=== PATIENT | female | born 1940 | race Caucasian/White ===

== ENCOUNTER → 2016-11-08 | Day surgery (SDC) | payer OTHER ==
[2016-10-30 10:50] VITALS: BMI 36.0
[~2016-11-08] VITALS: Ht 165.1 cm; Wt 100.8 kg
[~2016-11-08] MED LIST: ALBINS/ INH; ALBU1NEB10 INH; ALBUT/IPRATROP 3MG/0.5MG NEB 3 ML VIAL INH ONE; ASCO1CAP3 PO; ATOR-24 PO; ATROPINE SULFATE 0.1 MG/ML 5ML SYR IV PRN; ATV/1 PO; BIMA0.01 OPB; BRIN1SUS OPB; CHOL100027 PO; CLON0.1T12 PO; CPR500 PO; DICY20TA35 PO; DILT1CAP15 PO; EpHEDrine SULFATE INJ 50 MG/ML AMP IV PRN; FENTANYL CITRATE INJ 50 MCG/1 ML 2 ML VIAL ONE; FERR1TAB23 PO; FURO40TA3 PO; GLIM4TAB2 PO; HYDR-5688 PO; HYT/2 PO; IPRA1AER2 INH; LACTATED RINGER'S 1000ML 1,000 ML IV SCH; LARYING-O-JET KIT (LTA) EXT ONE; LEVA45AE INH; LEVA45AE PO; LIDOCAINE HCL 2% 2 ML VIAL (20MG/ML) ONE; METF-383 PO; MISCCAP80 PO; MTR500 PO; MULT-506 PO; NURSING VERBAL MED ORDER ONE; OMEP20CA9 PO; ONDA8TAB13 SL; ONDANSETRON INJ 2 MG/ML 2 ML VIAL IV PRN; ONDANSETRON INJ 2 MG/ML 2 ML VIAL ONE; OXGN; POLY1POW2 PO; POTA20TA16 PO; PROPOFOL IV EMULSION 10 MG/ML 20 ML VIAL IV ONE; RANI150T3 PO; ROCURONIUM BROMIDE 10 MG/ML 5 ML VIAL ONE; SENN-91 PO; SPRIN/30 INH; SUCCINYLCHOLINE CHLORIDE 20 MG/ML 10 ML VIAL IV ONE; TIOTCAP INH; TRAM-10 PO; TRAZ50TA35 PO; XOPENEX; ZAFI1TAB10 PO; ZFRODT/8 PO
[2016-11-08 05:55] VITALS: BP 159/80; PULSE 86; TEMP 36.9; O2SAT 93; Ht 165.1 cm; Wt 100.8 kg
[2016-11-08 07:15] VITALS: PULSE 66; O2SAT 93
--- NOTE | 2016-11-08 07:55 | Endo History and Physical ---
History & Physical Date of Service: Nov 08, 2016. Chief Complaint: [place] Referring Physician: History of Present Illness 75 year old female with a history of nausea presenting for a routine EGD / EUS for follow-up of a submucosal gastric mass. No dysphagia this am. Past Medical History Diabetes, Osteoporosis, Arthritis, Asthma, Anxiety, Reflux, Sleep Apnea, Hypertension, COPD Past Surgical History Hx Cardiac Surgery: No Hx Internal Defibrillator: No Hx Pacemaker: No Hx Abdominal Surgery: Yes (LAP DAISY , HERNIA REPAIRED, TUBAL LIGATION) Hx Post-Op Nausea and Vomiting: No Hx Cancer Surgery: No Hx Thoracic Surgery: No Hx Orthopedic: No Hx Urinary Tract Surgery: No 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 Smoking Status: Never Smoker Hx Substance Use: Yes Hx Alcohol Use: No Allergies Coded Allergies: Iodinated Contrast Media (Verified Allergy, Intermediate, HIVES-GI SYMPTOMS, 11/08/16) [place] (Verified Allergy, Intermediate, HIVES, 11/08/16) Bupropion (Verified Adverse Reaction, Mild, GI SYMPTOMS, 11/08/16) Enalapril (Verified Adverse Reaction, Mild, GI SYMPTOMS, 11/08/16) Escitalopram (Verified Adverse Reaction, Mild, GI SYMPTOMS, 11/08/16) Metoprolol (Verified Adverse Reaction, Mild, LOWERS PULSE RATE, 11/08/16) Lisinopril (Verified Adverse Reaction, Unknown, FAST HEART BEAT, 11/08/16) Valsartan (Verified Adverse Reaction, Unknown, FAST HEART BEAT, 11/08/16) Verapamil (Verified Adverse Reaction, Unknown, GI UPSET, 11/08/16) Current Medications Reported Home Medications Medications Dose Route/Sig Max Daily Dose Days Date Category Dose Instructions Multivitamin (Multivitamins) Tab 1 Tab PO QAM 10/30/16 Reported Combivent Respimat (Ipratropium-Albuterol) 1 Aer Aer 1 Puffs INH QID 12/31/15 Reported Bentyl (Dicyclomine Hcl) 20 Mg Tab 20 Mg PO QAM 12/31/15 Reported Diltiazem Hcl Er (Diltiazem Hcl Coated Beads) 360 Mg Cap 360 Mg PO QAM 12/31/15 Reported Catapres (Clonidine Hcl) 0.1 Mg Tab 1 Tab PO DIRECTED PRN 90 07/24/15 Reported TAKE IF B/P > 170/90 Vitamin D 1000 Unit (Cholecalciferol) 1,000 Unit Cap 1,000 Inter.unit PO QAM 07/24/15 Reported Spiriva Handihaler (Tiotropium [place]) 18 Mcg/ Aerp 1 Cap INH DAILY 07/24/15 Reported Lasix (Furosemide) 40 Mg Tab 1 Tab PO DAILY 07/24/15 Reported Do not take on a regular basis. May take as needed for fluid retention (swelling of ankles or feet). Albuterol Sulfate 0.083% For Inh (Albuterol Sulf) 3 Ml Nebu 3 Ml INH BID PRN 07/24/15 Reported Polyethylene Glycol 3350 (Polyethylene Glycol 3350 (Bulk) 1 Pow Pow 17 Gm PO DAILY 30 07/24/15 Reported Oxygen Gas 4 Liter NA HS 07/24/15 Reported Azopt Oph (Brinzolamide) 1 % Tammie 1 Drops OPB BID 90 07/24/15 Reported Lumigan (Bimatoprost) 0.01 % Talia 1 Drops OPB HS 90 07/24/15 Reported Vitamin C (Ascorbic Acid) 500 Mg Cap 1 Cap PO QAM 07/24/15 Reported Iron (Ferrous Sulfate) 325 Mg Tab 1 Tab PO QAM 07/24/15 Reported Probiotic (Probiotic Product) 1 Cap Cap 1 Cap PO QAM 07/24/15 Reported Hytrin (Terazosin Hcl) 2 Mg Cap 1 Cap PO DAILY 07/24/15 Reported ONLY IF BP IS HIGH PER DOCTOR SCHEDULE Lipitor (Atorvastatin Calcium) 40 Mg Tab 40 Mg PO QPM 07/24/15 Reported Glucophage (Metformin Hcl) 850 Mg Tab 850 Mg PO BIDM 07/24/15 Reported Prilosec (Omeprazole) 20 Mg Cap 1 Cap PO BID 30 07/24/15 Reported Accolate (Zafirlukast) 20 Mg Tab 20 Mg PO QAM 07/24/15 Reported Ativan (Lorazepam) 1 Mg Tab 1 Mg PO BID PRN 07/24/15 Reported Klor-Con (Potassium Chloride) 20 Meq Tabcr 20 Meq PO DAILY 07/24/15 Reported Do not take on a regular basis. Take on days that you take furosemide (Lasix) for fluid retention. [place] 5MG/325MG (Acetaminophen/Hydrocodone Bitart) Tab 1 Tab PO Q6H PRN 30 07/24/15 Reported PRN PAIN Ultram (Tramadol HCl) 50 Mg Tab 50 Mg PO Q6H PRN 07/24/15 Reported Zantac (Ranitidine HCl) 150 Mg Tab 1 Tab PO BID 90 07/24/15 Reported Vital Signs Weight (Kilograms): 100.8 Height (Feet): 5 Height (Inches): 5 Date Time Temp Pulse Resp B/P Pulse Ox O2 Delivery O2 Flow Rate FiO2 11/08/16 07:15 66 18 93 Room Air 11/08/16 05:55 36.9 86 22 159/80 93 Room Air Physical Exam General Appearance: no apparent distress Respiratory/Chest: Auscultation: deminished air movement Cardiovascular: Heart Auscultation: RRR Abdomen: Inspection & Palpation: soft, RLQ tenderness Assessment and Plan Patient for f/u eus / egd to evaluate a submucosal gastric mass. Risks are bleeding, infection, perforation, pain, infection, and need for f/u procedures.
--- NOTE | 2016-11-08 08:22 | GI REPORT ---
Procedure Date: 11/08/2016 8:07 AM Procedure: Upper GI endoscopy Indications: Epigastric abdominal pain, Follow-up of gastric tumor of uncertain behavior Medicines: General Anesthesia Complications: No immediate complications. Estimated blood loss: Minimal. Estimated Blood Loss: Estimated blood loss was minimal. Procedure: Pre-Anesthesia Assessment: - Prior to the procedure, a History and Physical was performed, and patient medications, allergies and sensitivities were reviewed. The patient's tolerance of previous anesthesia was reviewed. - The risks and benefits of the procedure and the sedation options and risks were discussed with the patient. All questions were answered and informed consent was obtained. - Patient identification and proposed procedure were verified prior to the procedure by the physician, the nurse and the student ministries director. The procedure was verified in the procedure room. - Pre-procedure physical examination revealed no contraindications to sedation. - ASA Grade Assessment: III - A patient with severe systemic disease. - After reviewing the risks and benefits, the patient was deemed in satisfactory condition to undergo the procedure. - The anesthesia plan was to use general anesthesia. - Immediately prior to administration of medications, the patient was re-assessed for adequacy to receive sedatives. - The heart rate, respiratory rate, oxygen saturations, blood pressure, adequacy of pulmonary ventilation, and response to care were monitored throughout the procedure. - The physical status of the patient was re-assessed after the procedure. After obtaining informed consent, the endoscope was passed under direct vision. Throughout the procedure, the patient's blood pressure, pulse, and oxygen saturations were monitored continuously. The scope was introduced through the mouth, and advanced to the third part of duodenum. The upper GI endoscopy was accomplished without difficulty. The patient tolerated the procedure well. Findings: The examined esophagus was normal. The Z-line was regular and was found 38 cm from the incisors. A small, submucosal mass with no bleeding and no stigmata of recent bleeding was found in the cardia. Biopsies were taken with a cold forceps for histology. Estimated blood loss was minimal. Diffuse mild inflammation characterized by granularity was found in the entire examined stomach. Biopsies were taken with a cold forceps for histology. Estimated blood loss was minimal. The examined duodenum was normal. Biopsies were taken with a cold forceps for histology. Estimated blood loss was minimal. Impression: - Normal esophagus. - Z-line regular, 38 cm from the incisors. - Rule out malignancy, gastric tumor in the cardia. Biopsied. - Gastritis. Biopsied. - Normal examined duodenum. Biopsied. Recommendation: - Perform an upper endoscopic ultrasound (UEUS) today. - Await pathology results. Zulay Eagle D.O. Zulay Eagle, 11/08/2016 8:22:02 AM This report has been signed electronically. Note Initiated On: 11/08/2016 8:07 AM
[2016-11-08] MEDS: FENTANYL CITRATE INJ 50 MCG/1 ML 2 ML VIAL IV PRN ×3 (09:11→09:21)
--- NOTE | 2016-11-08 09:11 | [facility] Post Operative Brief Note ---
Immediate Operative Summary Operative Date Nov 08, 2016. Pre-Operative Diagnosis Submucosal gastric mass Post-Operative Diagnosis Submucosal gastric mass Procedure(s) Performed Upper Endoscopic Ultrasonography Surgeon Dr. Zulay Eagle Systems Integration Engineer Surgeon(s) None Estimated Blood Loss 0mL Findings mild gastritis 10 mm submucosal gastric mass (likely benign) Specimens Handled by Endo staff. Anesthesia General Complication(s) None Disposition Recovery Room / PACU
--- NOTE | 2016-11-08 09:13 | Discharge Instructions ---
Endoscopy Patient Instructions Date / Procedure(s) Performed Nov 08, 2016. EGD, Other (Endoscopic Ultrasound) Allergy Information Coded Allergies: Iodinated Contrast Media (Verified Allergy, Intermediate, HIVES-GI SYMPTOMS, 11/08/16) [place] (Verified Allergy, Intermediate, HIVES, 11/08/16) Bupropion (Verified Adverse Reaction, Mild, GI SYMPTOMS, 11/08/16) Enalapril (Verified Adverse Reaction, Mild, GI SYMPTOMS, 11/08/16) Escitalopram (Verified Adverse Reaction, Mild, GI SYMPTOMS, 11/08/16) Metoprolol (Verified Adverse Reaction, Mild, LOWERS PULSE RATE, 11/08/16) Lisinopril (Verified Adverse Reaction, Unknown, FAST HEART BEAT, 11/08/16) Valsartan (Verified Adverse Reaction, Unknown, FAST HEART BEAT, 11/08/16) Verapamil (Verified Adverse Reaction, Unknown, GI UPSET, 11/08/16) Discharge Date / Findings Nov 08, 2016. Mild gastritis Mild dilation of the common bile duct (otherwise normal) 10 mm submucosal gastric mass (most likely benign) Medication Instructions Reported Home Medications Medications Dose Route/Sig Max Daily Dose Days Date Category Dose Instructions Multivitamin (Multivitamins) Tab 1 Tab PO QAM 10/30/16 Reported Combivent Respimat (Ipratropium-Albuterol) 1 Aer Aer 1 Puffs INH QID 12/31/15 Reported Bentyl (Dicyclomine Hcl) 20 Mg Tab 20 Mg PO QAM 12/31/15 Reported Diltiazem Hcl Er (Diltiazem Hcl Coated Beads) 360 Mg Cap 360 Mg PO QAM 12/31/15 Reported Catapres (Clonidine Hcl) 0.1 Mg Tab 1 Tab PO DIRECTED PRN 90 07/24/15 Reported TAKE IF B/P > 170/90 Vitamin D 1000 Unit (Cholecalciferol) 1,000 Unit Cap 1,000 Inter.unit PO QAM 07/24/15 Reported Spiriva Handihaler (Tiotropium [place]) 18 Mcg/ Aerp 1 Cap INH DAILY 07/24/15 Reported Lasix (Furosemide) 40 Mg Tab 1 Tab PO DAILY 07/24/15 Reported Do not take on a regular basis. May take as needed for fluid retention (swelling of ankles or feet). Albuterol Sulfate 0.083% For Inh (Albuterol Sulf) 3 Ml Nebu 3 Ml INH BID PRN 07/24/15 Reported Polyethylene Glycol 3350 (Polyethylene Glycol 3350 (Bulk) 1 Pow Pow 17 Gm PO DAILY 30 07/24/15 Reported Oxygen Gas 4 Liter NA HS 07/24/15 Reported Azopt Oph (Brinzolamide) 1 % Tammie 1 Drops OPB BID 90 07/24/15 Reported Lumigan (Bimatoprost) 0.01 % Talia 1 Drops OPB HS 90 07/24/15 Reported Vitamin C (Ascorbic Acid) 500 Mg Cap 1 Cap PO QAM 07/24/15 Reported Iron (Ferrous Sulfate) 325 Mg Tab 1 Tab PO QAM 07/24/15 Reported Probiotic (Probiotic Product) 1 Cap Cap 1 Cap PO QAM 07/24/15 Reported Hytrin (Terazosin Hcl) 2 Mg Cap 1 Cap PO DAILY 07/24/15 Reported ONLY IF BP IS HIGH PER DOCTOR SCHEDULE Lipitor (Atorvastatin Calcium) 40 Mg Tab 40 Mg PO QPM 07/24/15 Reported Glucophage (Metformin Hcl) 850 Mg Tab 850 Mg PO BIDM 07/24/15 Reported Prilosec (Omeprazole) 20 Mg Cap 1 Cap PO BID 30 07/24/15 Reported Accolate (Zafirlukast) 20 Mg Tab 20 Mg PO QAM 07/24/15 Reported Ativan (Lorazepam) 1 Mg Tab 1 Mg PO BID PRN 07/24/15 Reported Klor-Con (Potassium Chloride) 20 Meq Tabcr 20 Meq PO DAILY 07/24/15 Reported Do not take on a regular basis. Take on days that you take furosemide (Lasix) for fluid retention. [place] 5MG/325MG (Acetaminophen/Hydrocodone Bitart) Tab 1 Tab PO Q6H PRN 30 07/24/15 Reported PRN PAIN Ultram (Tramadol HCl) 50 Mg Tab 50 Mg PO Q6H PRN 07/24/15 Reported Zantac (Ranitidine HCl) 150 Mg Tab 1 Tab PO BID 90 07/24/15 Reported Provider Instructions Activity Restrictions - No exercising or heavy lifting for 24 hours. - Do not drink alcohol the day of the procedure. - Do not drive a car or operate machinery until the day after the procedure. - Do not make any important decisions or sign important papers in 24 hours after the procedure. Following Day: - Return to full activity which may include returning to work/school. Diet Start your diet with liquids and light foods (jello, soup, juice, toast). Then eat your usual diet if not nauseated. Treatment For Common After Affects For mild abdominal pain, bloating, or excessive gas: - Rest - Eat lightly - Lie on right side Follow-Up Information Follow-up with Dr. Pinto as scheduled Follow-up with Dr. Eagle in 1 year Repeat Upper endoscopy and endoscopic ultrasound in 1.5 years Anesthesia Information What You Should Know You have had a procedure that required some medicine to reduce anxiety and discomfort. This treatment is called moderate sedation. After receiving the treatment, you may be sleepy, but you will be able to breathe on your own. The effects of the treatment may last for several hours. Follow these instructions along with Activity/Diet recommendations noted above: * Do NOT do anything where dizziness or clumsiness would be dangerous. * Rest quietly at home today, then you can be up and about tomorrow. * Have a responsible person stay with you the rest of today. * You may have had an I.V. today. If so, you may take the dressing off later today. Recommendations Call your doctor if: * Trouble breathing * Continuous vomiting for more than 24 hours * Temperature above 101 degrees * Severe abdominal pain or bloating * Pain not relieved by pain medicine ordered * There is increased drainage or redness from any incision * A large amount of rectal bleeding greater than 2-3 tablespoons. (If you had a polyp/s removed or have hemorrhoids, a small amount of blood - from the rectum is to be expected.) * You have any unanswered questions or concerns. IN THE EVENT OF A SERIOUS EMERGENCY, GO TO THE NEAREST EMERGENCY ROOM Your discharge instructions were prepared by provider Zulay Eagle. Patient Instructions Signature Page Nina Harrington Patient (or Guardian) Signature/Date: I have read and understand the instructions given to me by my caregivers. Caregiver/RN/Doctor Signature/Date: The above-named patient and/or guardian has received patient instructions on this date. + Original Patient Signature Page (only) stays with chart. Please make copy for patient.
--- NOTE | 2016-11-08 09:24 | GI REPORT ---
Procedure Date: 11/08/2016 8:13 AM Procedure: Upper EUS Indications: Submucosal tumor versus extrinsic mass found on endoscopy, Abdominal pain in the right upper quadrant Medicines: General Anesthesia Complications: No immediate complications. Estimated blood loss: Minimal. Estimated Blood Loss: Estimated blood loss was minimal. Procedure: Pre-Anesthesia Assessment: - Prior to the procedure, a History and Physical was performed, and patient medications, allergies and sensitivities were reviewed. The patient's tolerance of previous anesthesia was reviewed. - The risks and benefits of the procedure and the sedation options and risks were discussed with the patient. All questions were answered and informed consent was obtained. - Patient identification and proposed procedure were verified prior to the procedure by the physician, the nurse and the shellfish processing laborer. The procedure was verified in the procedure room. - Pre-procedure physical examination revealed no contraindications to sedation. - ASA Grade Assessment: III - A patient with severe systemic disease. - After reviewing the risks and benefits, the patient was deemed in satisfactory condition to undergo the procedure. - The anesthesia plan was to use general anesthesia. - Immediately prior to administration of medications, the patient was re-assessed for adequacy to receive sedatives. - The heart rate, respiratory rate, oxygen saturations, blood pressure, adequacy of pulmonary ventilation, and response to care were monitored throughout the procedure. - The physical status of the patient was re-assessed after the procedure. After obtaining informed consent, the endoscope was passed under direct vision. Throughout the procedure, the patient's blood pressure, pulse, and oxygen saturations were monitored continuously. The Endosonoscope was introduced through the mouth, and advanced to the second part of duodenum. The upper EUS was accomplished without difficulty. The patient tolerated the procedure well. Findings: Endosonographic Finding : There was no sign of significant endosonographic abnormality in the ampulla. No masses were identified. Evidence of a previous cholecystectomy was identified endosonographically. There was dilation in the common bile duct which measured up to 8.4 mm, most consistent with prior cholecystectomy. There was no sign of significant endosonographic abnormality in the left lobe of the liver. Homogeneous parenchyma and no focal pathology were identified. No lymphadenopathy seen. There was no sign of significant endosonographic abnormality in the left adrenal gland. No adrenal gland enlargement was identified. There was no sign of significant endosonographic abnormality in the entire pancreas. The pancreatic duct measured up to 4 mm in diameter in the head, 2.5 mm in the genu and 1.4 mm in the body. No masses, no cysts, the pancreatic duct was well visualized from ampulla to tail, the pancreatic duct was regular in contour. An oval intramural (subepithelial) lesion was found in the cardia of the stomach. It was encountered at 2 cm distal to the gastroesophageal junction. The lesion was hypoechoic. Sonographically, the lesion appeared to originate from the submucosa (Layer 3). The lesion also measured 10.5 mm by 5.8 mm in diameter. The outer endosonographic borders were well defined. This appeared too small for FNA today. Impression: - There was no sign of significant pathology in the ampulla. - Evidence of a cholecystectomy. - There was dilation in the common bile duct which measured up to 8 mm. - There was no evidence of significant pathology in the left lobe of the liver. - Endosonographic images of the left adrenal gland were unremarkable. - There was no sign of significant pathology in the entire pancreas. - An 10.5 x 5.8 intramural (subepithelial) lesion was found in the cardia of the stomach. The lesion appeared to originate from within the submucosa (Layer 3). The diagnosis is a stromal cell (smooth muscle) neoplasm, of indeterminate biological behavior. . Recommendation: - Discharge patient to home (ambulatory). - Advance diet as tolerated today. - Repeat the upper endoscopic ultrasound in 1.5 years for surveillance. - Return to my office in 1 year. Zulay Eagle D.O. Zulay Eagle, 11/08/2016 9:24:11 AM This report has been signed electronically. Note Initiated On: 11/08/2016 8:13 AM
[2016-11-08 09:45] VITALS: BP 140/63; PULSE 66; TEMP 37.1; O2SAT 94
[2016-11-08 10:15] VITALS: BP 110/65; PULSE 62; O2SAT 95
[2016-11-08 10:45] VITALS: BP 117/62; PULSE 63; TEMP 37; O2SAT 94
[2016-11-08 11:00] VITALS: PULSE 62; O2SAT 94
--- NOTE | 2016-11-08 12:45 | Anesthesiology Progress Note ---
Anesthesia Post Op Note Date & Time Nov 08, 2016 at 12:44 Vital Signs Pain Intensity: 4 Vital Signs Past 12 Hours Date Time Temp Pulse Resp B/P Pulse Ox O2 Delivery O2 Flow Rate FiO2 11/08/16 11:00 62 18 94 Room Air 11/08/16 10:45 37 63 18 117/62 94 Nasal Cannula 11/08/16 10:15 62 18 110/65 95 Nasal Cannula 2 11/08/16 09:45 37.1 66 18 140/63 94 Nasal Cannula 2 11/08/16 09:40 36.8 62 18 135/69 98 Nasal Cannula 4 11/08/16 09:30 64 16 133/77 97 Nasal Cannula 4 11/08/16 09:20 63 18 141/68 97 Nasal Cannula 4 11/08/16 09:10 63 23 138/62 100 Mask 10 11/08/16 09:00 71 18 152/72 99 Mask 10 11/08/16 08:54 36.3 67 15 147/70 98 Mask 10 11/08/16 07:15 66 18 93 Room Air 11/08/16 05:55 36.9 86 22 159/80 93 Room Air Notes Mental Status: alert / awake / arousable, participated in evaluation Pt Amnestic to Procedure: Yes Nausea / Vomiting: adequately controlled Pain: adequately controlled Airway Patency, RR, SpO2: stable & adequate BP & HR: stable & adequate Hydration State: stable & adequate Anesthetic Complications: no major complications apparent
== END | disposition home or self-care (01) ==
LOC: C.ACU 05:31
PROVIDERS: ATTEND Internal Medicine Gastroenterology
DX: D37.1 Neoplasm of uncertain behavior of stomach (principal); K29.70 Gastritis, unspecified, without bleeding; K31.89 Other diseases of stomach and duodenum; K21.9 Gastro-esophageal reflux disease without esophagitis; E11.9 Type 2 diabetes mellitus without complications; M81.0 Age-related osteoporosis without current pathological fracture; M19.90 Unspecified osteoarthritis, unspecified site; Z98.890 Other specified postprocedural states; J45.909 Unspecified asthma, uncomplicated; J44.9 Chronic obstructive pulmonary disease, unspecified; Z98.51 Tubal ligation status; Z91.041 Radiographic dye allergy status

== ENCOUNTER 2016-11-13 18:41 | Emergency (ER) | payer OTHER ==
[~2016-11-13] VITALS: Ht 165.1 cm; Wt 102.0 kg
[~2016-11-13 18:41] MED LIST changes: -ALBINS/ INH; -ALBUT/IPRATROP 3MG/0.5MG NEB 3 ML VIAL INH ONE; -ATROPINE SULFATE 0.1 MG/ML 5ML SYR IV PRN; -CPR500 PO; -EpHEDrine SULFATE INJ 50 MG/ML AMP IV PRN; -FENTANYL CITRATE INJ 50 MCG/1 ML 2 ML VIAL ONE; -GLIM4TAB2 PO; -LACTATED RINGER'S 1000ML 1,000 ML IV SCH; -LARYING-O-JET KIT (LTA) EXT ONE; -LEVA45AE INH; -LEVA45AE PO; -LIDOCAINE HCL 2% 2 ML VIAL (20MG/ML) ONE; -MTR500 PO; -NURSING VERBAL MED ORDER ONE; -ONDA8TAB13 SL; -ONDANSETRON INJ 2 MG/ML 2 ML VIAL IV PRN; -ONDANSETRON INJ 2 MG/ML 2 ML VIAL ONE; -PROPOFOL IV EMULSION 10 MG/ML 20 ML VIAL IV ONE; -ROCURONIUM BROMIDE 10 MG/ML 5 ML VIAL ONE; -SENN-91 PO; -SPRIN/30 INH; -SUCCINYLCHOLINE CHLORIDE 20 MG/ML 10 ML VIAL IV ONE; -TRAZ50TA35 PO; -XOPENEX; -ZFRODT/8 PO
[2016-11-13 18:53] VITALS: TEMP 36.9; Ht 165.1 cm; Wt 102.0 kg
[2016-11-13] MEDS ORDERED: SODIUM CHLORIDE 0.9% 1000ML 250 ML IV STA (19:39)
[2016-11-13] MEDS ORDERED: SODIUM CHLORIDE 0.9% 1000ML 1,000 ML IV STA (19:39)
[2016-11-13 20:03] LABS: BASO % 0.2 %; BASO ABS # 0.02 K/uL (0-0.2); COMPLETE YES; EOS % 3.1 %; HEMATOCRIT 38.1 % (37-47); IG% 0.3 %; LYMPH % 30.2 %; LYMPH ABS # 3.12 K/uL (1.2-3.4); MEAN CELL VOLUME 89.2 fL (80-100); MEAN CORPUSCULAR HEMOGLOBIN 29.3 pg (25-34); MEAN CORPUSCULAR HGB CONC 32.8 g/dl (32-36); MEAN PLATELET VOLUME 9.4 fL (7.4-10.4); MONO % 9.1 %; NEUT % 57.1 %; PLATELET COUNT 352 K/uL (130-400); RED BLOOD COUNT 4.27 M/uL (4.2-5.4); WHITE BLOOD COUNT 10.34 K/uL (4.8-10.8)
[2016-11-13 20:23] LABS: BUN/CREATININE RATIO 14.9 (10-20); CALCIUM 9.6 mg/dl (8.5-10.1); CREATININE 0.98 mg/dl (0.60-1.20); POTASSIUM 3.7 mmol/L (3.5-5.1)
--- NOTE | 2016-11-13 20:25 | EMERGENCY ROOM VISIT NOTE ---
History Report prepared by Gerson: Valentine Larsen Under the Supervision of: Dr. Eliezer Ascencio M.D. First contact with patient: 19:24 Chief Complaint: ABDOMINAL PAIN Stated Complaint: PAINS IN STOMACH Nursing Triage Summary: Patient reports she had procedure done where they checked her stomach and did biopsies. Patient has been having pain since and called surgeon today but it was too late to be seen so patient sent to ER for evaluation. History of Present Illness The patient is a 75 year old female who presents to the Emergency Room with complaints of worsening abdominal pain that started a couple days ago. The patient states that she has been experiencing abdominal pain for a while now, so she had a procedure done to check her stomach. She states that they also did some biopsies. The patient states that her throat hurt after the procedure, but that has resolved. She states that the pain has been worse since the procedure. The patient called Dr. Eagle this morning because he did the procedure. He told her to come into the ED for further evaluation. She is also experiencing nausea, but denies vomiting. She has been eating pudding and crackers. She is able to relieve the abdominal pain with pain medicine and Zofran relieves her nausea. The patient is also experiencing shortness of breath, but states that it is due to her asthma and does not feel any different than usual. She denies chest pain. The patient states that she takes MiraLAX twice daily because she experienced constipation with diverticulitis. However, sometimes she only uses the MiraLAX once a day because twice is too much. Source of History: patient Onset: a couple days ago Position: abdomen Timing: worsening Modifying Factors (Relieving): other (unspecified pain medicine) Associated Symptoms: + SOB, + nausea, No chest pain, No vomiting Review of Systems See HPI for pertinent positives & negatives. A total of 10 systems reviewed and were otherwise negative. Past Medical & Surgical Medical Problems: (1) Asthma (2) Carpal tunnel syndrome (3) COPD (chronic obstructive pulmonary disease) (4) Diabetes mellitus, type 2 (5) Diverticular disease of colon (6) Dyslipidemia (7) GI bleed (8) Hypertension (9) Osteoarthritis (10) Sleep apnea Surgical Problems: (1) H/O colonoscopy (2) History of appendectomy (3) History of esophagogastroduodenoscopy (EGD) (4) History of incisional hernia repair (5) Status post cholecystectomy (6) Status post tonsillectomy (7) Status post tubal ligation Old medical records were reviewed. Nurse's notes were reviewed and I agree with. Family History Cancer Diabetes mellitus Gallbladder disease Heart disease Hypertension 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 Smoking Status: Never Smoker Alcohol Use: none Drug Use: none Current/Historical Medications Scheduled Ascorbic Acid (Vitamin C), 1 CAP PO QAM Atorvastatin (Lipitor), 40 MG PO QPM Bimatoprost (Lumigan), 1 DROPS OPB HS Brinzolamide Oph (Azopt Oph), 1 DROPS OPB BID Cholecalciferol (Vitamin D 1000 Unit), 1,000 INTER.UNIT PO QAM Dicyclomine Hcl (Bentyl), 20 MG PO QAM Diltiazem Hcl Coated Beads (Diltiazem Hcl Er), 360 MG PO QAM Ferrous Sulfate (Iron), 1 TAB PO QAM Furosemide (Lasix), 1 TAB PO DAILY Ipratropium-Albuterol (Combivent Respimat), 1 PUFFS INH QID Metformin Hcl (Glucophage), 850 MG PO BIDM Multivitamin (Multivitamin), 1 TAB PO QAM Omeprazole (Prilosec), 1 CAP PO BID Oxygen (Oxygen), 4 LITER NA HS Polyethylene Glycol 3350 (Bulk (Polyethylene Glycol 3350), 17 GM PO DAILY Potassium Ext Rel (Klor-Con), 20 MEQ PO DAILY Probiotic Product (Probiotic), 1 CAP PO QAM Ranitidine Hcl (Zantac), 1 TAB PO BID Terazosin Hcl (Hytrin), 1 CAP PO DAILY Tiotropium [place] (Spiriva Handihaler), 1 CAP INH DAILY Zafirlukast (Accolate), 20 MG PO QAM Scheduled PRN Albuterol Sulf (Albuterol Sulfate 0.083% For Inh), 3 ML INH BID PRN for Shortness of Breath Clonidine Hcl (Catapres), 1 TAB PO DIRECTED PRN for Hypertension Hydrocodone/Acetaminophen 5MG/325MG ([place] 5MG/325MG), 1 TAB PO Q6H PRN for Pain Lorazepam (Ativan), 1 MG PO BID PRN for Anxiety/Agitation Tramadol (Ultram), 50 MG PO Q6H PRN for Pain Allergies Coded Allergies: Iodinated Contrast Media (Verified Allergy, Intermediate, HIVES-GI SYMPTOMS, 1/27/17) [place] (Verified Allergy, Intermediate, HIVES, 11/08/16) Bupropion (Verified Adverse Reaction, Mild, GI SYMPTOMS, 11/08/16) Enalapril (Verified Adverse Reaction, Mild, GI SYMPTOMS, 11/08/16) Escitalopram (Verified Adverse Reaction, Mild, GI SYMPTOMS, 11/08/16) Metoprolol (Verified Adverse Reaction, Mild, LOWERS PULSE RATE, 11/08/16) Lisinopril (Verified Adverse Reaction, Unknown, FAST HEART BEAT, 11/08/16) Valsartan (Verified Adverse Reaction, Unknown, FAST HEART BEAT, 11/08/16) Verapamil (Verified Adverse Reaction, Unknown, GI UPSET, 11/08/16) Physical Exam Vital Signs Date Time Temp Pulse Resp B/P Pulse Ox O2 Delivery O2 Flow Rate FiO2 11/13/16 20:55 65 20 135/78 93 Room Air 11/13/16 18:53 36.9 80 20 190/70 93 Room Air Physical Exam General: Well developed well nourished non-ill appearing older female in no acute distress, breathing comfortably on room air. Normal speech HEENT: Normal cephalic atraumatic. Pupils are equal round and reactive to light. Extraocular movements are intact. Oropharynx is pink with moist mucous membranes. No swelling of the mouth lips or tongue. Neck: Supple with a midline trachea. No meningeal signs or stiffness, no JVD or bruits. No Stridor. Chest: Clear to auscultation bilaterally. No wheezes or rhonchi. No increased work of breathing. Heart: regular rate and rhythm. Abdomen: Soft minimal tenderness centrally, nondistended without rebound guarding or rigidity, no masses. Extremities: No cyanosis clubbing or edema. No calf tenderness or assymetry Spine/Back. Non tender to palpation. No CVA tenderness Skin: Good turgor without rashes. Neurologic exam: Cranial nerves two through 12 are intact. Motor and sensation are intact and symmetrical throughout. Medical Decision & Procedures ER Provider Diagnostic Interpretation: CT results as stated below per my review and radiologist interpretation: CT SCAN OF THE ABDOMEN AND PELVIS WITHOUT CONTRAST IMPRESSION: 1. No renal, ureteral, or bladder calculi identified 2. 22 mm left adrenal adenoma 3. No evidence of bowel obstruction. No evidence of free air 4. Extensive brar diverticulosis 5. 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 Umbilical hernia containing a knuckle of small bowel. There are no current obstructive changes Electronically signed by: Gonzalo Lyon M.D. 11/13/2016 8:29 PM Dictated Date/Time: 11/13/2016 8:20 PM Laboratory Results 11/13/16 19:52 Red Blood Count 4.27, Mean Corpuscular Volume 89.2, Mean Corpuscular Hemoglobin 29.3, Mean Corpuscular Hemoglobin Concent 32.8, Mean Platelet Volume 9.4, Neutrophils (%) (Auto) 57.1, Lymphocytes (%) (Auto) 30.2, Monocytes (%) (Auto) 9.1, Eosinophils (%) (Auto) 3.1, Basophils (%) (Auto) 0.2, Neutrophils # (Auto) 5.91, Lymphocytes # (Auto) 3.12, Monocytes # (Auto) 0.94, Eosinophils # (Auto) 0.32, Basophils # (Auto) 0.02 11/13/16 19:52 Test 11/13/16 19:52 11/13/16 19:56 White Blood Count 10.34 K/uL (4.8-10.8) Red Blood Count 4.27 M/uL (4.2-5.4) Hemoglobin 12.5 g/dL (12.0-16.0) Hematocrit 38.1 % (37-47) Mean Corpuscular Volume 89.2 fL (80-100) Mean Corpuscular Hemoglobin 29.3 pg (25-34) Mean Corpuscular Hemoglobin Concent 32.8 g/dl (32-36) Platelet Count 352 K/uL (130-400) Mean Platelet Volume 9.4 fL (7.4-10.4) Neutrophils (%) (Auto) 57.1 % Lymphocytes (%) (Auto) 30.2 % Monocytes (%) (Auto) 9.1 % Eosinophils (%) (Auto) 3.1 % Basophils (%) (Auto) 0.2 % Neutrophils # (Auto) 5.91 K/uL (1.4-6.5) Lymphocytes # (Auto) 3.12 K/uL (1.2-3.4) Monocytes # (Auto) 0.94 K/uL (0.11-0.59) Eosinophils # (Auto) 0.32 K/uL (0-0.5) Basophils # (Auto) 0.02 K/uL (0-0.2) RDW Standard Deviation 45.9 fL (36.4-46.3) RDW Coefficient of Variation 14.1 % (11.5-14.5) Immature Granulocyte % (Auto) 0.3 % Immature Granulocyte # (Auto) 0.03 K/uL (0.00-0.02) Anion Gap 9.0 mmol/L (3-11) Est Creatinine Clear Calc Drug Dose 56.9 ml/min Estimated GFR () 64.5 Estimated GFR (Non- 55.6 BUN/Creatinine Ratio 14.9 (10-20) Calcium Level 9.6 mg/dl (8.5-10.1) Total Bilirubin 0.3 mg/dl (0.2-1) Direct Bilirubin 0.1 mg/dl (0-0.2) Aspartate Amino Transf (AST/SGOT) 13 U/L (15-37) Alanine Aminotransferase (ALT/SGPT) 15 U/L (12-78) Alkaline Phosphatase 116 U/L (45-117) Total Protein 8.3 gm/dl (6.4-8.2) Albumin 3.7 gm/dl (3.4-5.0) Lipase 60 U/L (73-393) Bedside Troponin I 0.000 ng/ml (0-0.045) Laboratory studies as stated above per my review. Medications Administered Medications (Trade) Dose Ordered Sig/Robson Route Start Time Stop Time Status Last Admin Dose Admin Sodium Chloride 250 ml @ 999 mls/hr Q16M STAT IV 11/13/16 19:39 11/13/16 19:54 DC 11/13/16 20:45 999 MLS/HR Sodium Chloride (Nss 1000ml) 1,000 ml @ 100 mls/hr Q10H STAT IV 11/13/16 19:39 11/14/16 05:38 11/13/16 20:45 100 MLS/HR ECG Indication: abdominal pain Rate (beats per minute): 63 Rhythm: normal sinus Findings: no acute ischemic change, other (LVH) Comparison ECG Date: 12/31/2015 Change: no significant change ED Course 1938: Past medical records reviewed. The patient was evaluated in room A12, and a complete history and physical examination were performed. Ordered Sodium Chloride 1000 ml @ 100 mls/hr IV, Sodium Chloride 250 ml @ 999 mls/hr IV 2046: Upon reevaluation, the patient is doing well. I discussed the results and treatment plan with the patient. She verbalized agreement of the treatment plan. The patient was discharged home. Medical Decision Differentials include, but are not limited to; postop complication, perforation , infection, obstruction, pancreatitis, cardiac disease, electrolyte or metabolic abnormality. This patient comes in as described above. She was placed in room A 12. She is here for treatment and evaluation central abdominal pain. She had an endoscopy done with biopsy on the . She's been having pain since then as well although was having pain beforehand. She was sent up here for further evaluation. She looks well on exam and has no peritonitis. EKG does not suggest acute coronary syndrome. Her troponin is not elevated. I did a CAT scan as well as blood work. Her CAT scan does not show any acute process or any evidence to suggest a post procedural complication. He has no white count or fever to suggest infection. CAT scan does not show any acute findings. She has a chronic abdominal pain and this seems to be acute exacerbation of this. She has no evidence of pancreatitis. She has no evidence of acute bowel obstruction or perforation. I will discharge her home. She should rest and drink plenty of fluids. Return if: increasing pain, worsening of symptoms, fever or chills, any new problems or concerns. The patient and family are happy with the plan and she was discharged to home. Impression Primary Impression: Central abdominal pain Scribe Attestation The scribe's documentation has been prepared under my direction and personally reviewed by me in its entirety. I confirm that the note above accurately reflects all work, treatment, procedures, and medical decision making performed by me. Departure Information Dispostion Home / Self-Care Referrals Marcela Pinto M.D. (PCP) Forms HOME CARE DOCUMENTATION FORM, IMPORTANT VISIT INFORMATION Patient Instructions My [facility] Additional Instructions Rest. Drink plenty of fluids. Mild diet. Return if: Increasing pain, fever chills, worsening symptoms, any new problems or concerns Follow-up with your doctor in 2 days for recheck
--- NOTE | 2016-11-13 20:30 | DIAGNOSTIC IMAGING REPORT ---
CT SCAN OF THE ABDOMEN AND PELVIS WITHOUT CONTRAST CLINICAL HISTORY: Postop abdominal pain COMPARISON STUDY: 09/12/2012 TECHNIQUE: CT scan of the abdomen and pelvis was performed from the lung bases to the proximal femurs. Images are reviewed in the axial, sagittal, and coronal planes. IV contrast was not administered for this examination. CT DOSE: 1218.46 mGy.cm FINDINGS: Lower chest: There is bibasal atelectasis/scarring. Liver: The unenhanced liver is normal in size, contour, and attenuation. There is no intrahepatic biliary ductal dilatation. Gallbladder: Not visualized Spleen: Normal in size and attenuation. Pancreas: Unremarkable. Adrenal glands: There is a 22 mm left adrenal adenoma. Kidneys: No renal, ureteral, or bladder calculi are visualized. There is a 16 mm upper pole right renal cyst. Bowel: There is brar diverticulosis. There is a persistent giant sigmoid diverticulum versus chronic left adnexal fistula. No acute peridiverticular inflammatory changes are visualized. The appendix is normal in appearance Peritoneum: There is no intraperitoneal free air or abdominal ascites. There is a ventral hernia containing a knuckle of small bowel. This is nonobstructing. Vasculature: The abdominal aorta is normal in course and caliber. Adenopathy: None. Pelvic viscera: There is a giant diverticula within the left adnexa versus a chronic fistula to the left adnexal structures Skeletal structures: There is a grade 1 spondylolisthesis of L4 on L5. There is a stable lytic focus involving the T12 vertebral body likely representing a hemangioma IMPRESSION: 1. No renal, ureteral, or bladder calculi identified 2. 22 mm left adrenal adenoma 3. No evidence of bowel obstruction. No evidence of free air 4. Extensive brar diverticulosis 5. 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 Umbilical hernia containing a knuckle of small bowel. There are no current obstructive changes Electronically signed by: Gonzalo Lyon M.D. 11/13/2016 8:29 PM Dictated Date/Time: 11/13/2016 8:20 PM
[2016-11-13 20:55] VITALS: BP 135/78; PULSE 65; O2SAT 93
[2017-04-16] MEDS ORDERED: CPR500 PO (12:41)
[2017-04-16] MEDS ORDERED: MTR500 PO (12:41)
[2017-04-16] MEDS ORDERED: SENN-91 PO (12:46)
[2017-05-29] MEDS ORDERED: LEVA45AE INH (11:25)
== END 2016-11-13 21:23 | disposition home or self-care (01) ==
LOC: C.EDB 18:42 → C.EDA 21:23
DX: R10.9 Unspecified abdominal pain (principal); J45.909 Unspecified asthma, uncomplicated; J44.9 Chronic obstructive pulmonary disease, unspecified; E11.9 Type 2 diabetes mellitus without complications; E78.5 Hyperlipidemia, unspecified; I10 Essential (primary) hypertension; M19.90 Unspecified osteoarthritis, unspecified site; G47.30 Sleep apnea, unspecified; Z98.51 Tubal ligation status

== ENCOUNTER 2017-02-07 12:45 | Emergency (ER) | payer OTHER ==
[~2017-02-07] VITALS: Ht 165.1 cm; Wt 104.8 kg
[2017-02-07 12:48] VITALS: TEMP 37.2; Ht 165.1 cm; Wt 104.8 kg
[2017-02-07 13:36] LABS: HEMATOCRIT 39.2 % (37-47); MEAN CELL VOLUME 89.1 fL (80-100); MEAN CORPUSCULAR HEMOGLOBIN 29.1 pg (25-34); MEAN CORPUSCULAR HGB CONC 32.7 g/dl (32-36); MEAN PLATELET VOLUME 9.4 fL (7.4-10.4); PLATELET COUNT 367 K/uL (130-400)
--- NOTE | 2017-02-07 13:41 | DIAGNOSTIC IMAGING REPORT ---
CHEST ONE VIEW PORTABLE CLINICAL HISTORY: Atypical chest pain COMPARISON STUDY: 05/30/2016 FINDINGS: The heart is enlarged. There is no failure. There is no lobar consolidation. There is bibasal atelectasis.[ No pleural effusions are visualized. IMPRESSION: Cardiomegaly. No acute findings. Electronically signed by: Gonzalo Lyon M.D. 02/07/2017 1:40 PM Dictated Date/Time: 02/07/2017 1:34 PM
[2017-02-07 13:52] LABS: PARTIAL THROMBOPLASTIN RATIO 1.1; PROTHROMBIN TIME (PATIENT) 10.7 SECONDS (9.0-12.0)
[2017-02-07 13:54] LABS: CALCIUM 9.4 mg/dl (8.5-10.1); CREATININE 0.89 mg/dl (0.60-1.20); POTASSIUM 3.9 mmol/L (3.5-5.1)
[2017-02-07 13:59] LABS: CKMB/CK RATIO 1.4 (0-3.0)
--- NOTE | 2017-02-07 13:59 | EMERGENCY ROOM VISIT NOTE ---
History Report prepared by Gerson: Butch Peterson Under the Supervision of: Dr. Randa Montana D.O. First contact with patient: 13:38 Chief Complaint: CHEST PAIN Stated Complaint: CHEST PAIN,POSSIBLE BLOOD CLOT History of Present Illness The patient is a 76 year old female who presents to the Emergency Room with complaints of intermittent chest pain that started a week ago. She describes the pain as a burning sensation. The patient saw one of her primary care physicians 2 days ago. She had an EKG, x-ray, and blood work done. The patient was called back yesterday, and was told that the patient's blood work indicated a blood clot. The patient was told that the physician would send orders to the ED. She notes that she has an intolerance to IV dye, so she is here to get a nuclear test done. She vomits when given IV dye. She says that the pain worsened earlier today while walking, but she does not have any pain currently. The patient states that nothing in particular makes the pain better or worse. She notes that she even gets the pain while lying down at night. The patient denies any history of blood clots. She denies any chills, tingling, numbness, coughing, cold symptoms, back pain, worsened shortness of breath, diaphoresis, arm pain, vomiting, diarrhea, changes in bowel movements, or new leg swelling. The patient takes Lasix as needed and Miralax daily. The patient has hypertension and diabetes, and takes 2 omeprazole daily, as well as Ranitidine. She has been taking Zofran for her nausea. The patient has no history of heart problems, but was sent twice for a cardiac cath. Nothing wrong with her heart was found, and her last one was in 2011. She denies any recent travel. She is a non-smoker. Source of History: patient Onset: A week ago Position: chest Quality: burning Timing: intermittent Associated Symptoms: + nausea, No SOB, No back pain, No chills, No cough, No diaphoresis, No numbness (or tingling) Note: Associated symptoms: Denies recent cold symptoms, arm pain, changes in bowel movements, or new leg swelling. Review of Systems See HPI for pertinent positives & negatives. A total of 10 systems reviewed and were otherwise negative. Past Medical & Surgical Medical Problems: (1) Asthma (2) Carpal tunnel syndrome (3) COPD (chronic obstructive pulmonary disease) (4) Diabetes mellitus, type 2 (5) Diverticular disease of colon (6) Dyslipidemia (7) GI bleed (8) Hypertension (9) Osteoarthritis (10) Sleep apnea Surgical Problems: (1) H/O colonoscopy (2) History of appendectomy (3) History of esophagogastroduodenoscopy (EGD) (4) History of incisional hernia repair (5) Status post cholecystectomy (6) Status post tonsillectomy (7) Status post tubal ligation Family History Cancer Diabetes mellitus Gallbladder disease Heart disease Hypertension 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 Smoking Status: Never Smoker Alcohol Use: none Drug Use: none Current/Historical Medications Scheduled Ascorbic Acid (Vitamin C), 1 CAP PO QAM Atorvastatin (Lipitor), 40 MG PO QPM Bimatoprost (Lumigan), 1 DROPS OPB HS Brinzolamide Oph (Azopt Oph), 1 DROPS OPB BID Cholecalciferol (Vitamin D 1000 Unit), 1,000 INTER.UNIT PO QAM Dicyclomine Hcl (Bentyl), 20 MG PO QAM Diltiazem Hcl Coated Beads (Diltiazem Hcl Er), 360 MG PO QAM Ferrous Sulfate (Iron), 1 TAB PO QAM Furosemide (Lasix), 1 TAB PO DAILY Ipratropium-Albuterol (Combivent Respimat), 1 PUFFS INH QID Multivitamin (Multivitamin), 1 TAB PO QAM Omeprazole (Prilosec), 1 CAP PO BID Oxygen (Oxygen), 4 LITER NA HS Polyethylene Glycol 3350 (Bulk (Polyethylene Glycol 3350), 17 GM PO DAILY Potassium Ext Rel (Klor-Con), 20 MEQ PO DAILY Probiotic Product (Probiotic), 1 CAP PO QAM Ranitidine Hcl (Zantac), 1 TAB PO BID Terazosin Hcl (Hytrin), 1 CAP PO DAILY Tiotropium [place] (Spiriva Handihaler), 1 CAP INH DAILY Zafirlukast (Accolate), 20 MG PO QAM Scheduled PRN Albuterol Sulf (Proventil 0.083% 2.5MG/3ML), 2.5 MG INH BID PRN for SOB/Wheezing Clonidine Hcl (Catapres), 1 TAB PO DIRECTED PRN for Hypertension Hydrocodone/Acetaminophen 5MG/325MG ([place] 5MG/325MG), 1 TAB PO Q6H PRN for Pain Lorazepam (Ativan), 1 MG PO BID PRN for Anxiety/Agitation Tramadol (Ultram), 50 MG PO Q6H PRN for Pain Allergies Coded Allergies: Iodinated Contrast Media (Verified Allergy, Intermediate, HIVES-GI SYMPTOMS, 02/07/17) Bassett (Verified Allergy, Intermediate, HIVES, 02/07/17) Bupropion (Verified Adverse Reaction, Mild, GI SYMPTOMS, 02/07/17) Enalapril (Verified Adverse Reaction, Mild, GI SYMPTOMS, 02/07/17) Escitalopram (Verified Adverse Reaction, Mild, GI SYMPTOMS, 02/07/17) Metoprolol (Verified Adverse Reaction, Mild, LOWERS PULSE RATE, 02/07/17) Lisinopril (Verified Adverse Reaction, Unknown, FAST HEART BEAT, 02/07/17) Valsartan (Verified Adverse Reaction, Unknown, FAST HEART BEAT, 02/07/17) Verapamil (Verified Adverse Reaction, Unknown, GI UPSET, 02/07/17) Physical Exam Vital Signs Date Time Temp Pulse Resp B/P Pulse Ox O2 Delivery O2 Flow Rate FiO2 02/07/17 17:44 64 16 153/73 91 02/07/17 16:49 57 16 120/70 91 Room Air 02/07/17 15:24 58 02/07/17 14:45 57 95 02/07/17 14:43 Room Air 02/07/17 14:30 143/72 02/07/17 14:15 92 02/07/17 14:15 55 15 02/07/17 13:52 67 02/07/17 13:45 153/84 02/07/17 12:48 37.2 72 20 134/83 95 Room Air Physical Exam GENERAL: alert, well appearing, well nourished, no distress, non-toxic EYE EXAM: normal conjunctiva, PERRL and EOM's grossly intact OROPHARYNX: no exudate, no erythema, lips, buccal mucosa, and tongue normal and mucous membranes are moist NECK: supple, no nuchal rigidity, no adenopathy, non-tender LUNGS: Clear to auscultation. Normal chest wall mechanics HEART: no murmurs, S1 normal and S2 normal ABDOMEN: abdomen soft, non-tender, normo-active bowel sounds, no masses, no rebound or guarding. BACK: Back is symmetrical on inspection and there is no deformity, no midline tenderness, no CVA tenderness. SKIN: no rashes and no bruising UPPER EXTREMITIES: upper extremities are grossly normal. LOWER EXTREMITIES: No pitting edema. NEURO EXAM: Normal sensorium, cranial nerves II-XII grossly intact, normal speech, no gross weakness of arms, no gross weakness of legs. No drift. Finger to nose intact. Gross sensation intact. Medical Decision & Procedures ER Provider Diagnostic Interpretation: Xray results per the radiologist and my interpretation. Other results have been interpreted by the radiologist and reviewed by me. CHEST ONE VIEW PORTABLE CLINICAL HISTORY: Atypical chest pain COMPARISON STUDY: 05/30/2016 FINDINGS: The heart is enlarged. There is no failure. There is no lobar consolidation. There is bibasal atelectasis.[ No pleural effusions are visualized. IMPRESSION: Cardiomegaly. No acute findings. Electronically signed by: Gonzalo Lyon M.D. 02/07/2017 1:40 PM Dictated Date/Time: 02/07/2017 1:34 PM NUCLEAR MEDICINE VENTILATION/PERFUSION SCAN CLINICAL HISTORY: Chest pain. Elevated d-dimer. COMPARISON: Chest radiograph February 07, 2017. TECHNIQUE: For the ventilation portion of this exam, 32 mCi of DTPA was inhaled at 3:42 PM on February 07, 2017. Immediately following inhalation, imaging of the chest was carried out in the anterior, posterior, left lateral, right lateral, LPO, RPO, SARA and COSTA projections. For the perfusion portion of exam, 5.56 mCi of technetium 99m MAA was injected IV at 12:15 PM on February 07, 2017. Immediately following injection, imaging of the chest was carried out in the same projections. FINDINGS: The ventilation portion of this exam demonstrates extensive central radiotracer deposition which suggests chronic lung disease. Therefore, the accuracy of this examination is diminished. No segmental mismatched defects are identified on this exam. This study is considered low probability for pulmonary embolus. IMPRESSION: 1. Low probability for pulmonary embolus. 2. Technically compromised ventilation portion of the study with central radiotracer deposition which suggests chronic lung disease. Electronically signed by: Shadi Ravi M.D. 02/07/2017 4:39 PM Dictated Date/Time: 02/07/2017 4:37 PM Laboratory Results 02/07/17 13:00 02/07/17 13:00 Test 02/07/17 13:00 02/07/17 13:34 02/07/17 13:55 Red Blood Count 4.40 M/uL (4.2-5.4) Mean Corpuscular Volume 89.1 fL (80-100) Mean Corpuscular Hemoglobin 29.1 pg (25-34) Mean Corpuscular Hemoglobin Concent 32.7 g/dl (32-36) RDW Standard Deviation 43.8 fL (36.4-46.3) RDW Coefficient of Variation 13.4 % (11.5-14.5) Mean Platelet Volume 9.4 fL (7.4-10.4) Prothrombin Time 10.7 SECONDS (9.0-12.0) Prothromb Time International Ratio 1.0 (0.9-1.1) Activated Partial Thromboplast Time 27.5 SECONDS (21.0-31.0) Partial Thromboplastin Ratio 1.1 D-Dimer 640 ug/L FEU (0-500) Anion Gap 4.0 mmol/L (3-11) Est Creatinine Clear Calc Drug Dose 62.6 ml/min Estimated GFR () 71.9 Estimated GFR (Non- 62.1 BUN/Creatinine Ratio 19.0 (10-20) Calcium Level 9.4 mg/dl (8.5-10.1) Total Bilirubin 0.5 mg/dl (0.2-1) Aspartate Amino Transf (AST/SGOT) 11 U/L (15-37) Alanine Aminotransferase (ALT/SGPT) 18 U/L (12-78) Alkaline Phosphatase 113 U/L (45-117) Total Creatine Kinase 73 U/L (26-192) Creatine Kinase MB 1.0 ng/ml (0.5-3.6) Creatine Kinase MB Ratio 1.4 (0-3.0) Total Protein 7.8 gm/dl (6.4-8.2) Albumin 3.8 gm/dl (3.4-5.0) Globulin 4.0 gm/dl (2.5-4.0) Albumin/Globulin Ratio 1.0 (0.9-2) Bedside D-Dimer > 450 ng/mlFEU (0-450) Bedside Troponin I 0.010 ng/ml (0-0.045) Urine Color YELLOW Urine Appearance CLEAR (CLEAR) Urine pH 5.5 (4.5-7.5) Urine Specific [place] 1.021 (1.000-1.030) Urine Protein NEG (NEG) Urine Glucose (UA) NEG (NEG) Urine Ketones NEG (NEG) Urine Occult Blood NEG (NEG) Urine Nitrite NEG (NEG) Urine Bilirubin NEG (NEG) Urine Urobilinogen NEG (NEG) Urine Leukocyte Esterase NEG (NEG) Laboratory results per my review. Medications Administered Medications (Trade) Dose Ordered Sig/Robson Route Start Time Stop Time Status Last Admin Dose Admin Acetaminophen/ Hydrocodone Bitart ([place] 5/325 Tab) 1 tab ONE STAT PO 02/07/17 15:19 02/07/17 15:20 DC 02/07/17 15:23 1 TAB ECG Indication: chest pain Rate (beats per minute): 63 Rhythm: normal sinus Findings: PVC (occasional), no acute ischemic change, left axis deviation, other (QTC is normal, prolonged QRS) Comparison ECG Date: compared to 11/13/16, QRS hasn't changed ED Course 1345: The patient was evaluated in room A10. A complete history and physical exam was performed. 1519: Ordered [place] 5/325 Tab 1 tab PO. 1718: Patient well-appearing here, had 1 brief episode of pain which only lasted several minutes and resolve spontaneously. No change in the other conditions. Patient updated on the results. The patient verbally expressed understanding and agreement of the treatment plan. The patient will be discharged. Medical Decision Differential diagnoses includes but is not limited to acute coronary syndrome, myocardial infarction, pericarditis, pulmonary embolus, aortic dissection, pneumonia, pneumothorax, musculoskeletal, shingles, esophageal. Patient sent in from outpatient physician for additional imaging to rule out PE. Patient had outpatient labs showed an elevated d-dimer. Patient with brief , intermittent, and atypical chest pains over the course of the last week. Not associated primarily with exertion. No other coming symptoms with the chest pain and it resolved spontaneously within several minutes. Patient unable to receive IV dye, Cipro patient sent for VQ scan which was resulted as low probability. Patient with a cardiac cath 5 years ago which showed nonobstructive disease and no intervention was performed. The patient does have risk factors, she does not follow with cardiology regularly. Discussed with patient need for close follow-up with family doctor and cardiology as a precaution and that additional testing may be required given atypical nature and unclear etiology of her symptoms. Patient retaking H2 jonathan and PPI given history of GERD. Discussed possible although less likely primary GI etiology. Doubt dissection, tamponade, no evidence of effusion or infiltrate on chest x-ray. Patient's history and physical not consistent with congestive heart failure. Doubt ACS given persistence of symptoms, atypical nature, negative troponin and EKG changes. Discussed the patient possibly related to anxiety or musculoskeletal involvement. Discussed with patient symptoms to watch and return for, she verbalized understanding was agreeable with plan. Patient was stable vital signs throughout, and related intolerant by mouth without recurrence of symptoms. Patient's family at bedside and agreeable with plan also. Heart score 3 Impression Primary Impression: Chest pain Scribe Attestation The scribe's documentation has been prepared under my direction and personally reviewed by me in its entirety. I confirm that the note above accurately reflects all work, treatment, procedures, and medical decision making performed by me. Departure Information Dispostion Home / Self-Care Referrals Marcela Pinto M.D. (PCP) Forms HOME CARE DOCUMENTATION FORM, IMPORTANT VISIT INFORMATION Patient Instructions My [facility] Additional Instructions Please keep your follow-up appointment next week with your family doctor. Please continue regular medications as prescribed. If you have any worsening episodes of pain, feel they're lasting longer, or develop other accompanying symptoms including trouble breathing, sweating, dizziness, pain in her back or arms, abdominal pain, vomiting, numbness or tingling, or you have any other new concerns, please return to emergency room immediately. Problem Qualifiers Primary Impression: Chest pain Chest pain type: unspecified Qualified Codes: R07.9 - Chest pain, unspecified
[2017-02-07] MEDS ORDERED: SPRIN/30 INH (14:35)
[2017-02-07] MEDS ORDERED: ALBINS/ INH (14:38)
[2017-02-07 14:53] LABS: URINE APPEARANCE CLEAR (CLEAR); URINE BILIRUBIN NEG (NEG); URINE COLOR YELLOW; URINE NITRITE NEG (NEG); URINE PH 5.5 (4.5-7.5); URINE SPECIFIC GRAVITY 1.021 (1.000-1.030); UROBILINOGEN NEG (NEG); ZZUR CULT IF INDIC CLEAN CATCH NO
[2017-02-07 15:05] LABS: MANUAL MICROSCOPIC REQUIRED? NO; REVIEW REQ? NO
[2017-02-07] MEDS ORDERED: HYDROCODONE/ACETAMOPHEN 5/325MG TAB PO STA (15:19)
--- NOTE | 2017-02-07 16:40 | DIAGNOSTIC IMAGING REPORT ---
NUCLEAR MEDICINE VENTILATION/PERFUSION SCAN CLINICAL HISTORY: Chest pain. Elevated d-dimer. COMPARISON: Chest radiograph February 07, 2017. TECHNIQUE: For the ventilation portion of this exam, 32 mCi of DTPA was inhaled at 3:42 PM on February 07, 2017. Immediately following inhalation, imaging of the chest was carried out in the anterior, posterior, left lateral, right lateral, LPO, RPO, [place] and COSTA projections. For the perfusion portion of exam, 5.56 mCi of technetium 99m MAA was injected IV at 12:15 PM on February 07, 2017. Immediately following injection, imaging of the chest was carried out in the same projections. FINDINGS: The ventilation portion of this exam demonstrates extensive central radiotracer deposition which suggests chronic lung disease. Therefore, the accuracy of this examination is diminished. No segmental mismatched defects are identified on this exam. This study is considered low probability for pulmonary embolus. IMPRESSION: 1. Low probability for pulmonary embolus. 2. Technically compromised ventilation portion of the study with central radiotracer deposition which suggests chronic lung disease. Electronically signed by: Shadi Ravi M.D. 02/07/2017 4:39 PM Dictated Date/Time: 02/07/2017 4:37 PM
[2017-02-07 17:44] VITALS: BP 153/73; PULSE 64; O2SAT 91
[2017-04-16] MEDS ORDERED: MTR500 PO (12:41)
[2017-04-16] MEDS ORDERED: CPR500 PO (12:41)
[2017-04-16] MEDS ORDERED: SENN-91 PO (12:46)
[2017-05-29] MEDS ORDERED: LEVA45AE INH (11:25)
== END 2017-02-07 17:45 | disposition home or self-care (01) ==
LOC: C.EDB 12:47 → C.EDA 17:45
DX: R07.9 Chest pain, unspecified (principal); I10 Essential (primary) hypertension; E11.9 Type 2 diabetes mellitus without complications; R11.0 Nausea; Z98.61 Coronary angioplasty status; J45.909 Unspecified asthma, uncomplicated; G56.00 Carpal tunnel syndrome, unspecified upper limb; J44.9 Chronic obstructive pulmonary disease, unspecified; K57.30 Diverticulosis of large intestine without perforation or abscess without bleeding; E78.5 Hyperlipidemia, unspecified; M19.90 Unspecified osteoarthritis, unspecified site; G47.30 Sleep apnea, unspecified; Z83.3 Family history of diabetes mellitus; Z82.49 Family history of ischemic heart disease and other diseases of the circulatory system; I51.7 Cardiomegaly

== ENCOUNTER 2017-02-15 10:32 | Emergency (ER) | payer OTHER ==
[~2017-02-15] VITALS: Ht 165.1 cm; Wt 106.4 kg
[~2017-02-15 10:32] MED LIST changes: +ALBINS/ INH; -ALBU1NEB10 INH; -METF-383 PO; +SPRIN/30 INH; -TIOTCAP INH
[2017-02-15 10:40] VITALS: TEMP 36.9; Ht 165.1 cm; Wt 106.4 kg
--- NOTE | 2017-02-15 11:10 | EMERGENCY ROOM VISIT NOTE ---
History Report prepared by Gerson: Tree Duron Under the Supervision of: Dr. Randa Montana D.O. First contact with patient: 10:57 Chief Complaint: NAUSEA Stated Complaint: ARM HURTS, CHEST BURNING,NAUSEA Nursing Triage Summary: Pt c/o burning and hurting in her chest and left arm and real nauseous. Takes ranitidine and Prilosec. Symptoms for a couple weeks. Had blood clot ruled out in left arm recently. History of Present Illness The patient is a 76 year old female who presents to the Emergency Room with complaints of persistent chest pain for the past two weeks. The patient also complains of back pain, left arm pain, and upper abdominal pain. She was in the ED after being referred for a positive D-dimer last week. Her outpatient troponin was negative along with her troponin in the ED. She had a negative VQ scan in the ED. She had a clean cardiac catheterization five years ago. Her symptoms have not improved since she was seen in the ED last week. There are no worsening factors for the pain, which is described as an aching sensation. She became very nauseous last night but did not vomit. She denies fevers, changes in her bowel habits, or urinary symptoms. The patient has history of diverticulitis. She takes Aspirin but is not on any other blood thinners. Source of History: patient Onset: two weeks ago Position: chest Quality: ache Timing: other (persistent) Associated Symptoms: + abdominal pain, + back pain, + nausea, No fevers, No urinary symptoms Review of Systems See HPI for pertinent positives & negatives. A total of 10 systems reviewed and were otherwise negative. Past Medical & Surgical Medical Problems: (1) Asthma (2) Carpal tunnel syndrome (3) COPD (chronic obstructive pulmonary disease) (4) Diabetes mellitus, type 2 (5) Diverticular disease of colon (6) Dyslipidemia (7) GI bleed (8) Hypertension (9) Osteoarthritis (10) Sleep apnea Surgical Problems: (1) H/O colonoscopy (2) History of appendectomy (3) History of esophagogastroduodenoscopy (EGD) (4) History of incisional hernia repair (5) Status post cholecystectomy (6) Status post tonsillectomy (7) Status post tubal ligation Family History Cancer Diabetes mellitus Gallbladder disease Heart disease Hypertension 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 Smoking Status: Never Smoker Alcohol Use: none Drug Use: none Current/Historical Medications Scheduled Ascorbic Acid (Vitamin C), 1 CAP PO QAM Atorvastatin (Lipitor), 40 MG PO QPM Bimatoprost (Lumigan), 1 DROPS OPB HS Brinzolamide Oph (Azopt Oph), 1 DROPS OPB BID Cholecalciferol (Vitamin D 1000 Unit), 1,000 INTER.UNIT PO QAM Dicyclomine Hcl (Bentyl), 20 MG PO QAM Diltiazem Hcl Coated Beads (Diltiazem Hcl Er), 360 MG PO QAM Ferrous Sulfate (Iron), 1 TAB PO QAM Furosemide (Lasix), 1 TAB PO DAILY Ipratropium-Albuterol (Combivent Respimat), 1 PUFFS INH QID Multivitamin (Multivitamin), 1 TAB PO QAM Omeprazole (Prilosec), 1 CAP PO BID Oxygen (Oxygen), 4 LITER NA HS Polyethylene Glycol 3350 (Bulk (Polyethylene Glycol 3350), 17 GM PO DAILY Potassium Ext Rel (Klor-Con), 20 MEQ PO DAILY Probiotic Product (Probiotic), 1 CAP PO QAM Ranitidine Hcl (Zantac), 1 TAB PO BID Terazosin Hcl (Hytrin), 1 CAP PO DAILY Tiotropium [place] (Spiriva Handihaler), 1 CAP INH DAILY Zafirlukast (Accolate), 20 MG PO QAM Scheduled PRN Albuterol Sulf (Proventil 0.083% 2.5MG/3ML), 2.5 MG INH BID PRN for SOB/Wheezing Clonidine Hcl (Catapres), 1 TAB PO DIRECTED PRN for Hypertension Dicyclomine Hcl (Bentyl), 20 MG PO Q8 PRN for Pain Hydrocodone/Acetaminophen 5MG/325MG ([place] 5MG/325MG), 1 TAB PO Q6H PRN for Pain Lorazepam (Ativan), 1 MG PO BID PRN for Anxiety/Agitation Ondansetron Odt (Zofran Odt), 8 MG SL Q8 PRN for Nausea Tramadol (Ultram), 50 MG PO Q6H PRN for Pain Allergies Coded Allergies: Iodinated Contrast Media (Verified Allergy, Intermediate, HIVES-GI SYMPTOMS, 02/15/17) [place] (Verified Allergy, Intermediate, HIVES, 02/15/17) Bupropion (Verified Adverse Reaction, Mild, GI SYMPTOMS, 02/15/17) Enalapril (Verified Adverse Reaction, Mild, GI SYMPTOMS, 02/15/17) Escitalopram (Verified Adverse Reaction, Mild, GI SYMPTOMS, 02/15/17) Metoprolol (Verified Adverse Reaction, Mild, LOWERS PULSE RATE, 02/15/17) Lisinopril (Verified Adverse Reaction, Unknown, FAST HEART BEAT, 02/15/17) Valsartan (Verified Adverse Reaction, Unknown, FAST HEART BEAT, 02/15/17) Verapamil (Verified Adverse Reaction, Unknown, GI UPSET, 02/15/17) Physical Exam Vital Signs Date Time Temp Pulse Resp B/P Pulse Ox O2 Delivery O2 Flow Rate FiO2 02/15/17 15:40 78 23 116/63 95 02/15/17 13:40 138/83 95 Room Air 02/15/17 13:30 77 23 02/15/17 13:29 79 02/15/17 13:01 149/109 02/15/17 13:00 68 20 02/15/17 12:31 145/82 02/15/17 12:30 66 21 02/15/17 12:00 68 16 120/72 02/15/17 11:30 61 26 126/80 02/15/17 11:13 Room Air 02/15/17 11:11 77 02/15/17 11:08 135/72 02/15/17 10:40 36.9 94 17 124/72 92 Room Air Physical Exam GENERAL: alert, well appearing, well nourished, no distress, non-toxic EYE EXAM: normal conjunctiva, PERRL and EOM's grossly intact OROPHARYNX: no exudate, no erythema, lips, buccal mucosa, and tongue normal and mucous membranes are moist NECK: supple, no nuchal rigidity, no adenopathy, non-tender LUNGS: Clear to auscultation. Normal chest wall mechanics HEART: no murmurs, S1 normal and S2 normal ABDOMEN: abdomen soft, non-tender, normo-active bowel sounds, no masses, no rebound or guarding. BACK: Back is symmetrical on inspection and there is no deformity, no midline tenderness, no CVA tenderness. SKIN: no rashes and no bruising UPPER EXTREMITIES: upper extremities are grossly normal. LOWER EXTREMITIES: No pitting edema. NEURO EXAM: Normal sensorium, cranial nerves II-XII grossly intact, normal speech, no gross weakness of arms, no gross weakness of legs. Gross sensation intact. Medical Decision & Procedures ER Provider Diagnostic Interpretation: Xray results per the radiologist and my interpretation. Other results have been interpreted by the radiologist and reviewed by me. CHEST ONE VIEW PORTABLE CLINICAL HISTORY: chest pain dyspnea COMPARISON STUDY: 02/07/2017 FINDINGS: Platelike atelectasis left base. Mild stable cardiomegaly. Lungs otherwise are clear. Diaphragms smooth. IMPRESSION: Platelike atelectasis left base. Mild stable cardiomegaly. Electronically signed by: Jerry Ortiz M.D. 02/15/2017 11:24 AM Dictated Date/Time: 02/15/2017 11:23 AM ABDOMEN AND PELVIS CT WITHOUT CONTRAST CT DOSE: 1481.16 mGy.cm HISTORY: Pain. Nausea. upper abd pain, nausea TECHNIQUE: Multiaxial CT images of the abdomen and pelvis were performed without contrast. COMPARISON STUDY: 11/13/2016 FINDINGS: Lung bases are clear. Liver spleen and pancreas are unremarkable. There are several small renal cysts. There is no evidence for hydronephrosis. There is extensive chronic colonic diverticulosis. There is no acute diverticulitis. The diverticulum versus a patient this component of the sigmoid colon is unchanged in configuration. There is no new or interval process. Bladder is midline. IMPRESSION: Extensive chronic colonic diverticulosis. 2. No evidence for acute diverticulitis. 3. No significant change compared to the prior study. Electronically signed by: Jerry Ortiz M.D. 02/15/2017 1:33 PM Dictated Date/Time: 02/15/2017 1:29 PM Laboratory Results 02/15/17 11:00 Red Blood Count 4.42, Mean Corpuscular Volume 89.4, Mean Corpuscular Hemoglobin 28.5, Mean Corpuscular Hemoglobin Concent 31.9, Mean Platelet Volume 9.5, Neutrophils (%) (Auto) 61.6, Lymphocytes (%) (Auto) 28.3, Monocytes (%) (Auto) 7.9, Eosinophils (%) (Auto) 1.7, Basophils (%) (Auto) 0.3, Neutrophils # (Auto) 7.38, Lymphocytes # (Auto) 3.38, Monocytes # (Auto) 0.94, Eosinophils # (Auto) 0.20, Basophils # (Auto) 0.03 02/15/17 11:00 Test 02/15/17 10:50 02/15/17 11:00 Urine Color YELLOW Urine Appearance CLEAR (CLEAR) Urine pH 6.0 (4.5-7.5) Urine Specific [place] 1.020 (1.000-1.030) Urine Protein NEG (NEG) Urine Glucose (UA) NEG (NEG) Urine Ketones NEG (NEG) Urine Occult Blood NEG (NEG) Urine Nitrite NEG (NEG) Urine Bilirubin NEG (NEG) Urine Urobilinogen NEG (NEG) Urine Leukocyte Esterase NEG (NEG) White Blood Count 11.95 K/uL (4.8-10.8) Red Blood Count 4.42 M/uL (4.2-5.4) Hemoglobin 12.6 g/dL (12.0-16.0) Hematocrit 39.5 % (37-47) Mean Corpuscular Volume 89.4 fL (80-100) Mean Corpuscular Hemoglobin 28.5 pg (25-34) Mean Corpuscular Hemoglobin Concent 31.9 g/dl (32-36) Platelet Count 391 K/uL (130-400) Mean Platelet Volume 9.5 fL (7.4-10.4) Neutrophils (%) (Auto) 61.6 % Lymphocytes (%) (Auto) 28.3 % Monocytes (%) (Auto) 7.9 % Eosinophils (%) (Auto) 1.7 % Basophils (%) (Auto) 0.3 % Neutrophils # (Auto) 7.38 K/uL (1.4-6.5) Lymphocytes # (Auto) 3.38 K/uL (1.2-3.4) Monocytes # (Auto) 0.94 K/uL (0.11-0.59) Eosinophils # (Auto) 0.20 K/uL (0-0.5) Basophils # (Auto) 0.03 K/uL (0-0.2) RDW Standard Deviation 43.1 fL (36.4-46.3) RDW Coefficient of Variation 13.2 % (11.5-14.5) Immature Granulocyte % (Auto) 0.2 % Immature Granulocyte # (Auto) 0.02 K/uL (0.00-0.02) Prothrombin Time 10.5 SECONDS (9.0-12.0) Prothromb Time International Ratio 1.0 (0.9-1.1) Anion Gap 6.0 mmol/L (3-11) Est Creatinine Clear Calc Drug Dose 61.7 ml/min Estimated GFR () 70.0 Estimated GFR (Non- 60.4 BUN/Creatinine Ratio 20.4 (10-20) Calcium Level 9.7 mg/dl (8.5-10.1) Total Bilirubin 0.3 mg/dl (0.2-1) Aspartate Amino Transf (AST/SGOT) 11 U/L (15-37) Alanine Aminotransferase (ALT/SGPT) 15 U/L (12-78) Alkaline Phosphatase 115 U/L (45-117) Troponin I 0.027 ng/ml (0-0.045) Pro-B-Type Natriuretic Peptide 466 pg/ml (0-1800) Total Protein 7.9 gm/dl (6.4-8.2) Albumin 3.7 gm/dl (3.4-5.0) Globulin 4.2 gm/dl (2.5-4.0) Albumin/Globulin Ratio 0.9 (0.9-2) Lipase 60 U/L (73-393) Laboratory results per my review. Medications Administered Medications (Trade) Dose Ordered Sig/Robson Route Start Time Stop Time Status Last Admin Dose Admin Ondansetron HCl 8 mg 8 mg NOW STAT IV 02/15/17 12:03 02/15/17 12:04 DC 02/15/17 12:08 8 MG Sodium Chloride (Nss 1000ml) 1,000 ml @ 200 mls/hr Q5H STAT IV 02/15/17 12:03 02/15/17 16:26 DC 02/15/17 12:08 200 MLS/HR Acetaminophen/ Hydrocodone Bitart ([place] 5/325 Tab) 1 tab NOW STAT PO 02/15/17 13:51 02/15/17 13:53 DC 02/15/17 14:23 1 TAB Ondansetron HCl (Zofran 8mg Iv) 8 mg NOW STAT IV 02/15/17 14:13 02/15/17 14:14 DC 02/15/17 14:23 8 MG Al Hydroxide/Mg Hydroxide (Maalox Susp) 15 ml NOW STAT PO 02/15/17 14:13 02/15/17 14:14 DC 02/15/17 14:24 15 ML Sucralfate (Carafate Susp) 1 gm ONE STAT PO 02/15/17 14:24 02/15/17 14:28 DC 02/15/17 15:11 1 GM Dicyclomine HCl (Bentyl Tab) 20 mg NOW STAT PO 02/15/17 14:47 02/15/17 14:49 DC 02/15/17 15:11 20 MG ECG Indication: chest pain Rate (beats per minute): 81 Rhythm: sinus rhythm Findings: PVC, no acute ischemic change, left axis deviation, other (normal intervals) Comparison ECG Date: 07 February 2017 Change: no significant change ED Course 1100: The patient was evaluated in room C7. A complete history and physical exam was performed. 1203: NSS 1000 ml @ 200 mls/hr, Zofran 8 mg IV. 1351: [place] 5/325 mg PO. 1410: The patient is still feeling nauseous. 1413: Maalox 15 ml PO, Zofran 8 mg IV. 1418: Discussed the case with Dr. Pinto, [facility] Land Inspector. The patient will be evaluated. 1424: Carafate 1 gm PO. 1447: Dr. Pinto saw the patient. She does not believe that the patient needs to stay in the hospital. She made recommendations about the patent's medications. 1447: Bentyl 20 mg PO. Medical Decision Differential diagnoses includes but is not limited to acute coronary syndrome, myocardial infarction, pericarditis, pulmonary embolus, aortic dissection, pneumonia, pneumothorax, musculoskeletal, shingles, esophageal. Concern given persistence of symptoms and second ER visit within a week. Patient was very concerned about the persistence of her symptoms and felt uncomfortable going home. The patient does have prior history of similar presentation, patient felt this was worse and was still taking her usual medications at home for her symptoms. No acute etiology found, so discussed the case with the hospitalist Dr. Pinto. Dr. Pinto was kind enough to perform a bedside consultation and did additional review of the patient's EMR. After additional bedside discussion with the patient and family, patient would like to go home and follow-up as an outpatient. Patient has been stable here with no additional or new acute pathology noted. Given the patient is now comfortable after additional discussion with the hospitalist, feel patient can safely be discharged to close outpatient follow-up with her family doctor as well as GI. Discussed with patient symptoms to watch and return for, continued use of her medications, patient's when prn meds that she is on at home and additional scripts written, she and family verbalized understanding were agreeable with plan. Consults Time Called: 1410 Consulting Physician: Min Scott Land Inspector. Returned Call: 1418 The patient will be evaluated. Impression Primary Impression: Nausea Additional Impressions: Chest pain Abdominal pain Scribe Attestation The scribe's documentation has been prepared under my direction and personally reviewed by me in its entirety. I confirm that the note above accurately reflects all work, treatment, procedures, and medical decision making performed by me. Departure Information Dispostion Home / Self-Care Prescriptions Dicyclomine Hcl (BENTYL) 20 Mg Tab 20 MG PO Q8 Y for Pain, #20 TAB Prov: Randa Montana, DO 02/15/17 Ondansetron Odt (ZOFRAN ODT) 8 Mg Tab 8 MG SL Q8 Y for Nausea, #20 TAB Prov: Randa Montana, DO 02/15/17 Referrals Marcela Pinto M.D. (PCP) Forms HOME CARE DOCUMENTATION FORM, IMPORTANT VISIT INFORMATION Patient Instructions My [facility] Additional Instructions Please continue regular medications as prescribed. Please use a nausea medication and cramping medication as prescribed. Please follow up with GI given your history of an abnormal endoscopy. Please continue taking your stomach medications. Please avoid any foods which could irritate her stomach. Problem Qualifiers Additional Impressions: Chest pain Chest pain type: unspecified Qualified Codes: R07.9 - Chest pain, unspecified Abdominal pain Abdominal location: upper abdomen, unspecified Qualified Codes: R10.10 - Upper abdominal pain, unspecified
--- NOTE | 2017-02-15 11:25 | DIAGNOSTIC IMAGING REPORT ---
CHEST ONE VIEW PORTABLE CLINICAL HISTORY: chest pain dyspnea COMPARISON STUDY: 02/07/2017 FINDINGS: Platelike atelectasis left base. Mild stable cardiomegaly. Lungs otherwise are clear. Diaphragms smooth. IMPRESSION: Platelike atelectasis left base. Mild stable cardiomegaly. Electronically signed by: Jerry Ortiz M.D. 02/15/2017 11:24 AM Dictated Date/Time: 02/15/2017 11:23 AM
[2017-02-15 11:37] LABS: URINE APPEARANCE CLEAR (CLEAR); URINE BILIRUBIN NEG (NEG); URINE COLOR YELLOW; URINE NITRITE NEG (NEG); UROBILINOGEN NEG (NEG); ZZUR CULT IF INDIC CLEAN CATCH NO
[2017-02-15 11:45] LABS: MANUAL MICROSCOPIC REQUIRED? NO; REVIEW REQ? NO
[2017-02-15 11:53] LABS: HEMATOCRIT 39.5 % (37-47); MEAN CELL VOLUME 89.4 fL (80-100); MEAN CORPUSCULAR HEMOGLOBIN 28.5 pg (25-34); MEAN CORPUSCULAR HGB CONC 31.9 g/dl (32-36); MEAN PLATELET VOLUME 9.5 fL (7.4-10.4); PLATELET COUNT 391 K/uL (130-400); RED BLOOD COUNT 4.42 M/uL (4.2-5.4); WHITE BLOOD COUNT 11.95 K/uL (4.8-10.8)
[2017-02-15 12:03] LABS: PROTHROMBIN TIME (PATIENT) 10.5 SECONDS (9.0-12.0)
[2017-02-15] MEDS ORDERED: SODIUM CHLORIDE 0.9% 1000ML 1,000 ML IV STA (12:03)
[2017-02-15] MEDS ORDERED: ONDANSETRON 8 MG/54 ML D5W IV STA ×2 (12:03→14:13)
[2017-02-15 12:15] LABS: BUN/CREATININE RATIO 20.4 (10-20); CALCIUM 9.7 mg/dl (8.5-10.1); CREATININE 0.91 mg/dl (0.60-1.20); POTASSIUM 4.1 mmol/L (3.5-5.1)
[2017-02-15 12:16] LABS: BASO % 0.3 %; BASO ABS # 0.03 K/uL (0-0.2); COMPLETE YES; EOS % 1.7 %; IG% 0.2 %; LYMPH % 28.3 %; LYMPH ABS # 3.38 K/uL (1.2-3.4); MONO % 7.9 %; NEUT % 61.6 %
[2017-02-15 12:20] LABS: ALB/GLOB RATIO 0.9 (0.9-2)
--- NOTE | 2017-02-15 13:34 | DIAGNOSTIC IMAGING REPORT ---
ABDOMEN AND PELVIS CT WITHOUT CONTRAST CT DOSE: 1481.16 mGy.cm HISTORY: Pain. Nausea. upper abd pain, nausea TECHNIQUE: Multiaxial CT images of the abdomen and pelvis were performed without contrast. COMPARISON STUDY: 11/13/2016 FINDINGS: Lung bases are clear. Liver spleen and pancreas are unremarkable. There are several small renal cysts. There is no evidence for hydronephrosis. There is extensive chronic colonic diverticulosis. There is no acute diverticulitis. The diverticulum versus a patient this component of the sigmoid colon is unchanged in configuration. There is no new or interval process. Bladder is midline. IMPRESSION: Extensive chronic colonic diverticulosis. 2. No evidence for acute diverticulitis. 3. No significant change compared to the prior study. Electronically signed by: Jerry Ortiz M.D. 02/15/2017 1:33 PM Dictated Date/Time: 02/15/2017 1:29 PM
[2017-02-15] MEDS ORDERED: HYDROCODONE/ACETAMOPHEN 5/325MG TAB PO STA (13:51)
[2017-02-15] MEDS ORDERED: ALUMINUM/MAGNESIUM SUSP 30 ML UDC PO STA (14:13)
[2017-02-15] MEDS ORDERED: SUCRALFATE 1 GM/10 ML UDC PO STA (14:24)
[2017-02-15] MEDS ORDERED: DICYCLOMINE HCL 20 MG TAB PO STA (14:47)
[2017-02-15] MEDS ORDERED: ONDA8TAB13 SL (15:10)
[2017-02-15] MEDS ORDERED: DICY20TA35 PO (15:11)
--- NOTE | 2017-02-15 15:14 | Medical Consult ---
Consultation Note Date of Service February 15, 2017. Consultation Note DATE OF ER VISIT: 02/15/17 DATE OF CONSULT: 02/25/17 REASON FOR CONSULT: Nausea, Abdominal pain HPI : The patient is a 76 year old Female who presents to the Emergency Room with c/o nausea, upper abdominal pain, burning chest pain, left sided x 2 weeks. Patient does have chronic symptoms of nausea, abdominal cramps for which she takes bentyl on and off, zofran PRN. She had multiple investigations done last year for these symptoms. EGD- on 11/08/16- gastritis, submucosal mass was found in fundus. 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 Follow up with EUS was recommended at 1.5 years. Last week was sent to ER by PCP for elevated d dimer, VQ scan was done which was negative for PE, Trop outpatient, in ED last week was negative, Cardiac cath 5 years ago negative. Continues to have on and off symptoms. Today patient comes in with c/o nausea, more than usual, abdominal cramps, upper , left sided chest pain which is burning, left sided, persistent x 2 weeks. No associated diaphoresis, sweating, palpitations, vomiting, diarrhea. No weight loss, anorexia, fever, chills, cough, leg swelling. She was able to tolerate PO in AM- had her boost with no vomiting. Labs- no significant abnormalities, EKG- no new changes, CXR- no acute changes, CT abd/pelvis- Extensive colonic diverticulosis, no acute changes. We have been consulted for recommendations for further evaluation, management and disposition. PMH/PSH Medical Problems: (1) Asthma Status: Chronic (2) Carpal tunnel syndrome Status: Chronic (3) COPD (chronic obstructive pulmonary disease) Status: Chronic (4) Diabetes mellitus, type 2 Status: Chronic (5) Diverticular disease of colon Status: Chronic (6) Dyslipidemia Status: Chronic (7) Hypertension Status: Chronic (8) Osteoarthritis Status: Chronic (9) Sleep apnea Status: Chronic Surgical Problems: (1) H/O colonoscopy Permanent Comment: 04/2014 - diverticular disease throughout colon, internal hemorrhoids, polyp removed Status: Chronic (2) History of appendectomy Status: Chronic (3) History of esophagogastroduodenoscopy (EGD) Permanent Comment: 04/2014 - normal Status: Chronic (4) History of incisional hernia repair Status: Chronic (5) Status post cholecystectomy Status: Chronic (6) Status post tonsillectomy Status: Chronic (7) Status post tubal ligation Status: Chronic Family History noncontributory 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 Smoking Status: Never Smoker Alcohol Use: none Allergies Coded Allergies: Iodinated Contrast Media (Verified Allergy, Intermediate, HIVES-GI SYMPTOMS, 12/31/15) [place] (Verified Allergy, Intermediate, HIVES, 12/31/15) Lisinopril (Verified Allergy, Unknown, UNKNOWN, 12/31/15) Valsartan (Verified Allergy, Unknown, UNKNOWN, 12/31/15) Verapamil (Verified Allergy, Unknown, UNKNOWN, 12/31/15) Bupropion (Verified Adverse Reaction, Mild, GI SYMPTOMS, 12/31/15) Enalapril (Verified Adverse Reaction, Mild, GI SYMPTOMS, 05/28/16) Escitalopram (Verified Adverse Reaction, Mild, GI SYMPTOMS, 05/28/16) Iodine (Verified Adverse Reaction, Mild, VOMITING, 05/28/16) Metoprolol (Verified Adverse Reaction, Mild, LOWERS PULSE RATE, 05/28/16) Home Medications Scheduled Ascorbic Acid (Vitamin C), 1 CAP PO DAILY Atorvastatin (Lipitor), 40 MG PO DAILY Bimatoprost (Lumigan), 1 DROPS OPB HS Brinzolamide Oph (Azopt Oph), 1 DROPS OPB BID Cholecalciferol (Vitamin D 1000 Unit), 1,000 INTER.UNIT PO DAILY Dicyclomine Hcl (Bentyl), 20 MG PO DAILY Diltiazem Hcl Coated Beads (Diltiazem Hcl Er), 360 MG PO DAILY Ferrous Sulfate (Iron), 1 TAB PO DAILY Furosemide (Lasix), 1 TAB PO BID Ipratropium-Albuterol (Combivent Respimat), 1 PUFFS INH QID Omeprazole (Prilosec), 1 CAP PO BID Oxygen (Oxygen), 4 LITER NA HS Polyethylene Glycol 3350 (Bulk (Polyethylene Glycol 3350), 17 GM PO DAILY Potassium Ext Rel (Klor-Con), 20 MEQ PO DAILY Probiotic Product (Probiotic), 1 CAP PO DAILY Ranitidine Hcl (Zantac), 1 TAB PO BID Terazosin Hcl (Hytrin), 1 CAP PO DAILY Tiotropium [place] (Spiriva Handihaler), 1 CAP INH DAILY Zafirlukast (Accolate), 20 MG PO DAILY Scheduled PRN Albuterol Sulf (Albuterol Sulfate 0.083% For Inh), 3 ML INH BID PRN PRN for Shortness of Breath Clonidine Hcl (Catapres), 1 TAB PO DIRECTED PRN PRN for Hypertension Hydrocodone/Acetaminophen 5MG/325MG ([place] 5MG/325MG), 1 TAB PO Q6H PRN PRN for Pain Lorazepam (Ativan), 1 MG PO BID PRN PRN for Anxiety/Agitation Tramadol (Ultram), 50 MG PO Q6H PRN PRN for Pain Review of Systems As per HPI, all other systems reviewed and negative Physical Exam General Appearance: AAOX3, no apparent distress Head: normocephalic Eyes: normal inspection ENT: hearing grossly normal Neck: supple, no JVD Respiratory/Chest: lungs clear, normal breath sounds, no respiratory distress Cardiovascular: regular rate, rhythm, normal peripheral pulses, + pertinent finding (trace edema BLLE) Abdomen/GI: soft, non tender, non distended, BS present Extremities/Musculoskelatal: normal inspection, no calf tenderness, trace pedal edema bilaterally Neurologic/Psych: no motor/sensory deficits, alert, normal mood/affect, oriented x 3 LABS: Reviewed- no significant abnormalities, CBC, CMP, Trop x0.027, Lipase 60, wnl IMAGING; CT abd.pelvis- no acute abnormalities, Extensive colonic diverticulosis CXR- no acute abnormalities EKG- NSR, Left anterior fascicular block, LVH, No acute ischemic changes ASSESSMENT: 1. Acute on chronic Nausea/Abdominal cramps/Left sided burning chest pain: Patient does have chronic symptoms of nausea, abdominal cramps for which she takes bentyl on and off, zofran PRN. She had multiple investigations done last year for these symptoms. EGD- on 11/08/16- gastritis, submucosal mass was found in fundus. 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 Follow up with EUS was recommended at 1.5 years. Last week was sent to ER by PCP for elevated d dimer, VQ scan was done which was negative for PE, Trop outpatient, in ED last week was negative, Cardiac cath 5 years ago negative. -Came to ED as symptoms worsened. On Omeprazole PO BID, Ranitidine PO BID at home. Zofran, Bentyl PRN helps. Was able to tolerate PO in AM -Work up in ED- CBC, CMP- negative, Lipase- normal, CT abd/pelvis- negative for acute abnormalities, Extensive Colonic diverticulosis, EKG- no acute ischemic changes, Trop x 1 negative. -Likely symptoms are related to her Gastritis and similar to her chronic symptoms, clinically unlikely to be cardiac. -Recommend: Discharge home as no acute inflammatory condition suspected and able to tolerate PO with no lab abnormalities, negative imaging for acute conditions including CT abd/pelvis. Recommend: refill dicyclomine QID PRN prescription, continue Omeprazole/PPI and close follow up with PCP. Counseling about life style modification with diet done. 2. COPD- No signs of exacerbation 3. HTN Discussed at length with daughter by bedside. Answered all questions. Patient is eager to be discharged home. Daughter is comfortable taking her home as well. Discussed recommendations with ER physician. Thank you for allowing us to participate in care of this patient.
[2017-02-15 15:40] VITALS: BP 116/63; PULSE 78; O2SAT 95
[2017-04-16] MEDS ORDERED: CPR500 PO (12:41)
[2017-04-16] MEDS ORDERED: MTR500 PO (12:41)
[2017-04-16] MEDS ORDERED: SENN-91 PO (12:46)
[2017-05-29] MEDS ORDERED: LEVA45AE INH (11:25)
== END 2017-02-15 15:48 | disposition home or self-care (01) ==
LOC: C.EDB 10:34 → C.EDC 15:48
DX: R11.0 Nausea (principal); R07.9 Chest pain, unspecified; R10.10 Upper abdominal pain, unspecified; M54.9 Dorsalgia, unspecified; J98.11 Atelectasis; J45.909 Unspecified asthma, uncomplicated; G56.00 Carpal tunnel syndrome, unspecified upper limb; J44.9 Chronic obstructive pulmonary disease, unspecified; E11.9 Type 2 diabetes mellitus without complications; K57.30 Diverticulosis of large intestine without perforation or abscess without bleeding; E78.5 Hyperlipidemia, unspecified; I10 Essential (primary) hypertension; M19.90 Unspecified osteoarthritis, unspecified site; G47.30 Sleep apnea, unspecified; Z79.82 Long term (current) use of aspirin; Z98.51 Tubal ligation status; Z83.3 Family history of diabetes mellitus; Z82.49 Family history of ischemic heart disease and other diseases of the circulatory system

== ENCOUNTER 2017-04-08 23:08 | Inpatient (IN) | payer OTHER ==
[~2017-04-08] VITALS: Ht 165.1 cm; Wt 105.1 kg
[2017-04-08] MEDS ORDERED: SODIUM CHLORIDE 0.9% 1000ML 1,000 ML IV STA (23:31)
[2017-04-08] MEDS ORDERED: ONDANSETRON INJ 2 MG/ML 2 ML VIAL IV STA (23:31)
--- NOTE | 2017-04-08 23:39 | EMERGENCY ROOM VISIT NOTE ---
History Report prepared by Gerson: Kashif Banegas Under the Supervision of: Dr. Mohinder Chambers M.D. First contact with patient: 23:14 Chief Complaint: ABDOMINAL PAIN Stated Complaint: BAD STOMACH PAINS, RECTAL BLEEDING History of Present Illness The patient is a 76 year old female who presents to the Emergency Room with complaints of rectal bleeding starting today. The patient first started having abdominal pain and nausea about 9 and a half hours ago. She took Zofran with some relief in the nausea. She took Hydrocodone about 7 and a half hours ago without relief in the pain. A few hours later, she started having rectal bleeding. The patient is on MiraLAX as needed. She took two doses of MiraLAX yesterday but did not take any today. She reports some mild diarrhea today. She denies any recent falls, headache, vomiting, urinary symptoms, lower extremity swelling, or any other complaints. She has chronic neck pain but denies any changes. She has a history of diverticulitis and rectal bleeding occurring in May 2016. She is on an Aspirin but otherwise denies any blood thinners. Source of History: patient Onset: today Position: other (global) Quality: other (rectal bleeding) Associated Symptoms: + nausea, + abdominal pain, + diarrhea, No headache, No vomiting, No urinary symptoms Review of Systems See HPI for pertinent positives & negatives. A total of 10 systems reviewed and were otherwise negative. Past Medical & Surgical Medical Problems: (1) Asthma (2) Carpal tunnel syndrome (3) COPD (chronic obstructive pulmonary disease) (4) Diabetes mellitus, type 2 (5) Diverticular disease of colon (6) Dyslipidemia (7) GI bleed (8) Hypertension (9) Osteoarthritis (10) Sleep apnea Surgical Problems: (1) H/O colonoscopy (2) History of appendectomy (3) History of esophagogastroduodenoscopy (EGD) (4) History of incisional hernia repair (5) Status post cholecystectomy (6) Status post tonsillectomy (7) Status post tubal ligation Family History Cancer Diabetes mellitus Gallbladder disease Heart disease Hypertension 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 Smoking Status: Never Smoker Alcohol Use: none Drug Use: none Marital Status: Occupation Status: retired Current/Historical Medications Scheduled Ascorbic Acid (Vitamin C), 1 CAP PO QAM Bimatoprost (Lumigan), 1 DROPS OPB HS Brinzolamide Oph (Azopt Oph), 1 DROPS OPB BID Cholecalciferol (Vitamin D 1000 Unit), 1,000 INTER.UNIT PO QAM Dicyclomine Hcl (Bentyl), 20 MG PO QAM Diltiazem Hcl Coated Beads (Diltiazem Hcl Er), 360 MG PO QAM Ferrous Sulfate (Iron), 1 TAB PO QAM Furosemide (Lasix), 1 TAB PO DAILY Glimepiride (Glimepiride), 2 MG PO DAILY Home O2 Therapy (Oxygen), 4 LITER NA HS Ipratropium-Albuterol (Combivent Respimat), 1 PUFFS INH QID Levalbuterol Tartrate (Levalbuterol Tartrate Hfa), 1 DOSE PO DAILY Multivitamin (Multivitamin), 1 TAB PO QAM Omeprazole (Prilosec), 1 CAP PO BID Polyethylene Glycol 3350 (Bulk (Polyethylene Glycol 3350), 17 GM PO DAILY Potassium Ext Rel (Klor-Con), 20 MEQ PO DAILY Probiotic Product (Probiotic), 1 CAP PO QAM Ranitidine Hcl (Zantac), 1 TAB PO BID Terazosin Hcl (Hytrin), 1 CAP PO DAILY Trazodone Hcl (Trazodone), 50 MG PO HS Zafirlukast (Accolate), 20 MG PO QAM Scheduled PRN Albuterol Sulf (Proventil 0.083% 2.5MG/3ML), 2.5 MG INH BID PRN for SOB/Wheezing Clonidine Hcl (Catapres), 1 TAB PO DIRECTED PRN for Hypertension Hydrocodone/Acetaminophen 5MG/325MG ([place] 5MG/325MG), 1 TAB PO Q6H PRN for Pain Ondansetron (Ondansetron Odt), 8 MG PO TID PRN for Nausea or Vomiting Tramadol (Ultram), 50 MG PO Q6H PRN for Pain Allergies Coded Allergies: Iodinated Contrast Media (Verified Allergy, Intermediate, HIVES-GI SYMPTOMS, 04/08/17) [place] (Verified Allergy, Intermediate, HIVES, 04/08/17) Bupropion (Verified Adverse Reaction, Mild, GI SYMPTOMS, 04/08/17) Enalapril (Verified Adverse Reaction, Mild, GI SYMPTOMS, 04/08/17) Escitalopram (Verified Adverse Reaction, Mild, GI SYMPTOMS, 04/08/17) Metoprolol (Verified Adverse Reaction, Mild, LOWERS PULSE RATE, 04/08/17) Lisinopril (Verified Adverse Reaction, Unknown, FAST HEART BEAT, 04/08/17) Valsartan (Verified Adverse Reaction, Unknown, FAST HEART BEAT, 04/08/17) Verapamil (Verified Adverse Reaction, Unknown, GI UPSET, 04/08/17) Physical Exam Vital Signs Date Time Temp Pulse Resp B/P (MAP) Pulse Ox O2 Delivery O2 Flow Rate FiO2 04/09/17 00:27 79 18 124/81 92 Room Air 04/08/17 23:24 89 04/08/17 23:20 94 Room Air 04/08/17 23:10 36.8 95 20 147/85 93 Room Air Physical Exam GENERAL: Patient is elderly appearing, in moderate distress, uncomfortable appearing. HEENT: No acute trauma, normocephalic atraumatic, mucous membranes moist, no nasal congestion, no scleral icterus. NECK: No stridor, no adenopathy, no meningismus, trachea is midline. LUNGS: No dyspnea. Clear to auscultation and equal bilaterally. No wheeze, no rhonchi. HEART: Regular rate and rhythm. No murmurs, rubs, gallops appreciated. ABDOMEN: Soft, vague suprapubic tenderness to palpation, bowel sounds positive, no masses appreciated, no peritonitis. BACK: No midline tenderness, no CVA tenderness EXTREMITIES: Normal motion all extremities, no cyanosis, no edema. NEUROLOGIC: Alert and oriented, no acute motor or sensory deficits, no focal weakness, cranial nerves grossly intact. SKIN: No rash, no jaundice, no diaphoresis. Medical Decision & Procedures ER Provider Diagnostic Interpretation: CT results as stated below per interpretation by me and the radiologist: CT ABDOMEN AND PELVIS Compared to 02/15/17 Interval development of colitis, most pronounced to the descending segment. Numerous diverticula, but this is not felt to reflect diverticulitis given the length of involvement. No perforation. Left adrenal adenoma and other incidental findings again noted. Radiologist: Ayaz Lopez MD Laboratory Results 04/08/17 22:25 Red Blood Count 4.48, Mean Corpuscular Volume 87.3, Mean Corpuscular Hemoglobin 28.6, Mean Corpuscular Hemoglobin Concent 32.7, Mean Platelet Volume 9.2, Neutrophils (%) (Auto) 71.3, Lymphocytes (%) (Auto) 19.1, Monocytes (%) (Auto) 8.3, Eosinophils (%) (Auto) 0.8, Basophils (%) (Auto) 0.2, Neutrophils # (Auto) 14.16, Lymphocytes # (Auto) 3.78, Monocytes # (Auto) 1.65, Eosinophils # (Auto) 0.15, Basophils # (Auto) 0.03 04/08/17 22:25 Test 04/08/17 22:25 04/08/17 23:30 White Blood Count 19.83 K/uL (4.8-10.8) Red Blood Count 4.48 M/uL (4.2-5.4) Hemoglobin 12.8 g/dL (12.0-16.0) Hematocrit 39.1 % (37-47) Mean Corpuscular Volume 87.3 fL (80-100) Mean Corpuscular Hemoglobin 28.6 pg (25-34) Mean Corpuscular Hemoglobin Concent 32.7 g/dl (32-36) Platelet Count 371 K/uL (130-400) Mean Platelet Volume 9.2 fL (7.4-10.4) Neutrophils (%) (Auto) 71.3 % Lymphocytes (%) (Auto) 19.1 % Monocytes (%) (Auto) 8.3 % Eosinophils (%) (Auto) 0.8 % Basophils (%) (Auto) 0.2 % Neutrophils # (Auto) 14.16 K/uL (1.4-6.5) Lymphocytes # (Auto) 3.78 K/uL (1.2-3.4) Monocytes # (Auto) 1.65 K/uL (0.11-0.59) Eosinophils # (Auto) 0.15 K/uL (0-0.5) Basophils # (Auto) 0.03 K/uL (0-0.2) RDW Standard Deviation 43.7 fL (36.4-46.3) RDW Coefficient of Variation 13.7 % (11.5-14.5) Immature Granulocyte % (Auto) 0.3 % Immature Granulocyte # (Auto) 0.06 K/uL (0.00-0.02) Ovalocytes 1+ Prothrombin Time 10.4 SECONDS (9.0-12.0) Prothromb Time International Ratio 1.0 (0.9-1.1) Activated Partial Thromboplast Time 28.0 SECONDS (21.0-31.0) Partial Thromboplastin Ratio 1.1 Anion Gap 6.0 mmol/L (3-11) Est Creatinine Clear Calc Drug Dose 56.1 ml/min Estimated GFR () 62.5 Estimated GFR (Non- 53.9 BUN/Creatinine Ratio 14.8 (10-20) Calcium Level 9.8 mg/dl (8.5-10.1) Magnesium Level 1.8 mg/dl (1.8-2.4) Total Bilirubin 0.3 mg/dl (0.2-1) Direct Bilirubin < 0.1 mg/dl (0-0.2) Aspartate Amino Transf (AST/SGOT) 15 U/L (15-37) Alanine Aminotransferase (ALT/SGPT) 19 U/L (12-78) Alkaline Phosphatase 134 U/L (45-117) Total Protein 8.3 gm/dl (6.4-8.2) Albumin 3.8 gm/dl (3.4-5.0) Lipase 51 U/L (73-393) Urine Color YELLOW Urine Appearance CLOUDY (CLEAR) Urine pH 6.0 (4.5-7.5) Urine Specific [place] 1.020 (1.000-1.030) Urine Protein TRACE (NEG) Urine Glucose (UA) NEG (NEG) Urine Ketones TRACE (NEG) Urine Occult Blood 1+ (NEG) Urine Nitrite NEG (NEG) Urine Bilirubin NEG (NEG) Urine Urobilinogen NEG (NEG) Urine Leukocyte Esterase TRACE (NEG) Urine WBC (Auto) 1-5 /hpf (0-5) Urine RBC (Auto) 5-10 /hpf (0-4) Urine Hyaline Casts (Auto) 0 /lpf (0-5) Urine Epithelial Cells (Auto) >30 /lpf (0-5) Urine Bacteria (Auto) 2+ (NEG) Urine Crystals CALCIUM OXALATE (NONE Urine Pathogenic Casts /lpf (0) Laboratory results as reviewed by me. Medications Administered Medications (Trade) Dose Ordered Sig/Robson Route Start Time Stop Time Status Last Admin Dose Admin Sodium Chloride 1,000 ml @ 75 mls/hr [id number] STAT IV 04/08/17 23:31 04/09/17 12:50 04/08/17 23:49 75 MLS/HR Fentanyl Citrate (Fentanyl Inj) 50 mcg NOW ONCE IV 04/08/17 23:45 04/08/17 23:46 DC 04/08/17 23:49 50 MCG Ondansetron HCl (Zofran Inj) 4 mg NOW STAT IV 04/08/17 23:31 04/08/17 23:33 DC 04/08/17 23:48 4 MG ED Course 2314: The patient was evaluated in room B06. A complete history and physical exam was performed. 2331: Zofran Inj 4 mg IV, Sodium Chloride 1000 ml @ 75 mls/hr IV 2345: Fentanyl Inj 50 mcg IV 0012: I reevaluated the patient who is feeling much better. 0043: [facility] the [facility] He will manage antibiotics. 0045: Upon reevaluation, the patient is resting comfortably. Discussed results and treatment plan with the patient. She verbalized understanding and agreement with the treatment plan. The patient will be evaluated for further management. Medical Decision Differential: Diverticulitis, Colitis, AVM, Coagulopathy, Colitis, Malignancy, Upper GI bleed, Fissure, Hemorrhoids, amongst other pathologies entertained. Medication Reconciliation: I attest that I have personally reviewed the patient 's current medication list. Blood pressure screening: Patient was found to have an elevated blood pressure and was referred to the hospitalist for recheck and further management. Very pleasant 76 yr old female with history of previous diverticulitis and heavy bleeding requiring transfusion last year. Today with increasing abdominal discomfort and bloody stools. WBC elevated though afebrile and without hypotension. CT felt required which reveals no diverticulitis though descending colitis. Has been in and out of hospitals in last year with periodic abx thus Cdiff of concern. No BM while ED patient. Discussed case with hospitalist who will bring in and manage abx. Pain and nause controlled while in ED. Patient without surgical abdomen nor intractable pain. Symptoms not consistent with acute ischemic event requiring emergent intervention. Currently no requirement for transfusion though will clearly need to be monitored closely for this. Consults Time Called: 39 Consulting Physician: Dr. Lo from the [facility] Returned Call: 42 I discussed the patient's [facility] He will manage antibiotics. Impression Primary Impression: Colitis Additional Impressions: Lower GI bleed Leukocytosis Scribe Attestation The scribe's documentation has been prepared under my direction and personally reviewed by me in its entirety. I confirm that the note above accurately reflects all work, treatment, procedures, and medical decision making performed by me. Departure Information Dispostion Being Evaluated By Hospitalist Referrals Marcela Pinto M.D. (PCP) Patient Instructions My [facility] Problem Qualifiers
[2017-04-08 23:42] LABS: HEMATOCRIT 39.1 % (37-47); MEAN CELL VOLUME 87.3 fL (80-100); MEAN CORPUSCULAR HEMOGLOBIN 28.6 pg (25-34); MEAN CORPUSCULAR HGB CONC 32.7 g/dl (32-36); MEAN PLATELET VOLUME 9.2 fL (7.4-10.4); PLATELET COUNT 371 K/uL (130-400); RED BLOOD COUNT 4.48 M/uL (4.2-5.4); WHITE BLOOD COUNT 19.83 K/uL (4.8-10.8)
[2017-04-08] MEDS ORDERED: FENTANYL CITRATE INJ 50 MCG/1 ML 2 ML VIAL IV ONE (23:45)
[2017-04-09] VITALS (7 sets, daily range): BP systolic 108–174; BP diastolic 53–75; PULSE 58–86; TEMP 36.7–37.1; O2SAT 92–98; Ht 165.1 cm; Wt 105.1 kg
[2017-04-09 00:02] LABS: ALT/SGPT 19 U/L (12-78); BLOOD UREA NITROGEN 15 mg/dl (7-18); BUN/CREATININE RATIO 14.8 (10-20); CALCIUM 9.8 mg/dl (8.5-10.1); CARBON DIOXIDE 27 mmol/L (21-32); CHLORIDE 104 mmol/L (98-107); GLUCOSE 158 mg/dl (70-99); POTASSIUM 3.7 mmol/L (3.5-5.1); SODIUM 137 mmol/L (136-145)
[2017-04-09] MEDS ORDERED: ZFRODT/8 PO (00:02)
[2017-04-09] MEDS ORDERED: GLIM4TAB2 PO (00:02)
[2017-04-09] MEDS ORDERED: TRAZ50TA35 PO (00:02)
[2017-04-09 00:04] LABS: URINE APPEARANCE CLOUDY (CLEAR); URINE BILIRUBIN NEG (NEG); URINE COLOR YELLOW; URINE EPITHELIAL CELL AUTO >30 /lpf (0-5); URINE NITRITE NEG (NEG); UROBILINOGEN NEG (NEG); ZZUR CULT IF INDIC CLEAN CATCH YES
[2017-04-09 00:05] LABS: ALKALINE PHOSPHATASE 134 U/L (45-117); AST/SGOT 15 U/L (15-37)
[2017-04-09] MEDS ORDERED: XOPENEX (00:05)
[2017-04-09] MEDS ORDERED: LEVA45AE PO (00:06)
[2017-04-09 00:07] LABS: MANUAL MICROSCOPIC REQUIRED? NO; REVIEW REQ? YES
[2017-04-09 00:10] LABS: BASO % 0.2 %; BASO ABS # 0.03 K/uL (0-0.2); COMPLETE YES; EOS % 0.8 %; IG% 0.3 %; LYMPH % 19.1 %; LYMPH ABS # 3.78 K/uL (1.2-3.4); MONO % 8.3 %; NEUT % 71.3 %; OVALOCYTES 1+; PARTIAL THROMBOPLASTIN RATIO 1.1; PROTHROMBIN TIME (PATIENT) 10.4 SECONDS (9.0-12.0)
[2017-04-09 01:11] LABS: MAGNESIUM 1.8 mg/dl (1.8-2.4)
[2017-04-09] MEDS ORDERED: ACETAMINOPHEN 325 MG TAB PO PRN (01:15)
[2017-04-09] MEDS ORDERED: GLUCOSE 10 TABS/TUBE PO PRN (01:15)
[2017-04-09] MEDS ORDERED: GLUCAGON FOR INJ 1 MG VIAL SQ PRN (01:15)
[2017-04-09] MEDS ORDERED: GLUCOSE 40% GEL 15 GM TUBE PO PRN (01:15)
[2017-04-09] MEDS ORDERED: DEXTROSE 50% 50 ML SYR IV PRN (01:15)
[2017-04-09] MEDS ORDERED: NSS + 20MEQ KCL 1000ML 1,000 ML IV ONE (01:15)
--- NOTE | 2017-04-09 01:47 | History and Physical ---
History & Physical Date & Time of Service: Apr 09, 2017 at 01:42 Chief Complaint: Colitis Primary Care Physician: Marcela Pinto M.D. History of Present Illness Source: patient, clinic records, hospital records One day history of bloody diarrhea with lower achy abdominal pain. Some nausea no emesis no fever no chills no recent antibiotics no known sick contacts no recent travel. Past Medical/Surgical History Medical Problems: (1) Asthma Status: Chronic (2) Carpal tunnel syndrome Status: Chronic (3) COPD (chronic obstructive pulmonary disease) Status: Chronic (4) Diabetes mellitus, type 2 Status: Chronic (5) Diverticular disease of colon Status: Chronic (6) Dyslipidemia Status: Chronic (7) Hypertension Status: Chronic (8) Osteoarthritis Status: Chronic (9) Sleep apnea Status: Chronic Surgical Problems: (1) H/O colonoscopy Permanent Comment: 04/2014 - diverticular disease throughout colon, internal hemorrhoids, polyp removed Status: Chronic (2) History of appendectomy Status: Chronic (3) History of esophagogastroduodenoscopy (EGD) Permanent Comment: 04/2014 - normal Status: Chronic (4) History of incisional hernia repair Status: Chronic (5) Status post cholecystectomy Status: Chronic (6) Status post tonsillectomy Status: Chronic (7) Status post tubal ligation Status: Chronic Family History Cancer Diabetes mellitus Gallbladder disease Heart disease Hypertension 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 Smoking Status: Never Smoker Drug Use: none Marital Status: 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, 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) Immunizations History of Influenza Vaccine: Yes Influenza Vaccine Date: Jul 14, 2015 History of Tetanus Vaccine?: Yes Tetanus Immunization Date: February 28, 2009 History of Pneumococcal: Yes Pneumococcal Date: Mar 18, 2015 Multi-Drug Resistant Organisms History of MDRO: No Allergies Coded Allergies: Iodinated Contrast Media (Verified Allergy, Intermediate, HIVES-GI SYMPTOMS, 04/08/17) [place] (Verified Allergy, Intermediate, HIVES, 04/08/17) Bupropion (Verified Adverse Reaction, Mild, GI SYMPTOMS, 04/08/17) Enalapril (Verified Adverse Reaction, Mild, GI SYMPTOMS, 04/08/17) Escitalopram (Verified Adverse Reaction, Mild, GI SYMPTOMS, 04/08/17) Metoprolol (Verified Adverse Reaction, Mild, LOWERS PULSE RATE, 04/08/17) Lisinopril (Verified Adverse Reaction, Unknown, FAST HEART BEAT, 04/08/17) Valsartan (Verified Adverse Reaction, Unknown, FAST HEART BEAT, 04/08/17) Verapamil (Verified Adverse Reaction, Unknown, GI UPSET, 04/08/17) Home Medications Scheduled Ascorbic Acid (Vitamin C), 1 CAP PO QAM Bimatoprost (Lumigan), 1 DROPS OPB HS Brinzolamide Oph (Azopt Oph), 1 DROPS OPB BID Cholecalciferol (Vitamin D 1000 Unit), 1,000 INTER.UNIT PO QAM Dicyclomine Hcl (Bentyl), 20 MG PO QAM Diltiazem Hcl Coated Beads (Diltiazem Hcl Er), 360 MG PO QAM Ferrous Sulfate (Iron), 1 TAB PO QAM Furosemide (Lasix), 1 TAB PO DAILY Glimepiride (Glimepiride), 2 MG PO DAILY Home O2 Therapy (Oxygen), 4 LITER NA HS Ipratropium-Albuterol (Combivent Respimat), 1 PUFFS INH QID Levalbuterol Tartrate (Levalbuterol Tartrate Hfa), 1 DOSE PO DAILY Multivitamin (Multivitamin), 1 TAB PO QAM Omeprazole (Prilosec), 1 CAP PO BID Polyethylene Glycol 3350 (Bulk (Polyethylene Glycol 3350), 17 GM PO DAILY Potassium Ext Rel (Klor-Con), 20 MEQ PO DAILY Probiotic Product (Probiotic), 1 CAP PO QAM Ranitidine Hcl (Zantac), 1 TAB PO BID Terazosin Hcl (Hytrin), 1 CAP PO HS Trazodone Hcl (Trazodone), 50 MG PO HS Zafirlukast (Accolate), 20 MG PO QAM Scheduled PRN Albuterol Sulf (Proventil 0.083% 2.5MG/3ML), 2.5 MG INH BID PRN for SOB/Wheezing Clonidine Hcl (Catapres), 1 TAB PO DIRECTED PRN for Hypertension Hydrocodone/Acetaminophen 5MG/325MG ([place] 5MG/325MG), 1 TAB PO Q6H PRN for Pain Ondansetron (Ondansetron Odt), 8 MG PO TID PRN for Nausea or Vomiting Tramadol (Ultram), 50 MG PO Q6H PRN for Pain Physical Exam Vital Signs Date Time Temp Pulse Resp B/P (MAP) Pulse Ox O2 Delivery O2 Flow Rate FiO2 04/09/17 01:31 81 16 150/87 99 04/09/17 00:27 79 18 124/81 92 Room Air 04/08/17 23:24 89 04/08/17 23:20 94 Room Air 04/08/17 23:10 36.8 95 20 147/85 93 Room Air General Appearance: no apparent distress Head: normocephalic ENT: normal ENT inspection, + pertinent finding (nasal cannula noted) Neck: supple, + pertinent finding (short) Respiratory/Chest: + decreased breath sounds Cardiovascular: regular rate, rhythm Abdomen/GI: + tenderness (lower abdomen tenderness) Extremities/Musculoskelatal: + calf tenderness Neurologic/Psych: alert Skin: + pallor Diagnostics Laboratory Results Results Past 24 Hours Test 04/08/17 22:25 04/08/17 23:30 Range/Units White Blood Count 19.83 4.8-10.8 K/uL Red Blood Count 4.48 4.2-5.4 M/uL Hemoglobin 12.8 12.0-16.0 g/dL Hematocrit 39.1 37-47 % Mean Corpuscular Volume 87.3 80-100 fL Mean Corpuscular Hemoglobin 28.6 25-34 pg Mean Corpuscular Hemoglobin Concent 32.7 32-36 g/dl Platelet Count 371 130-400 K/uL Mean Platelet Volume 9.2 7.4-10.4 fL Neutrophils (%) (Auto) 71.3 % Lymphocytes (%) (Auto) 19.1 % Monocytes (%) (Auto) 8.3 % Eosinophils (%) (Auto) 0.8 % Basophils (%) (Auto) 0.2 % Neutrophils # (Auto) 14.16 1.4-6.5 K/uL Lymphocytes # (Auto) 3.78 1.2-3.4 K/uL Monocytes # (Auto) 1.65 0.11-0.59 K/uL Eosinophils # (Auto) 0.15 0-0.5 K/uL Basophils # (Auto) 0.03 0-0.2 K/uL RDW Standard Deviation 43.7 36.4-46.3 fL RDW Coefficient of Variation 13.7 11.5-14.5 % Immature Granulocyte % (Auto) 0.3 % Immature Granulocyte # (Auto) 0.06 0.00-0.02 K/uL Ovalocytes 1+ Prothrombin Time 10.4 9.0-12.0 SECONDS Prothromb Time International Ratio 1.0 0.9-1.1 Activated Partial Thromboplast Time 28.0 21.0-31.0 SECONDS Partial Thromboplastin Ratio 1.1 Sodium Level 137 136-145 mmol/L Potassium Level 3.7 3.5-5.1 mmol/L Chloride Level 104 98-107 mmol/L Carbon Dioxide Level 27 21-32 mmol/L Anion Gap 6.0 3-11 mmol/L Blood Urea Nitrogen 15 7-18 mg/dl Creatinine 1.00 0.60-1.20 mg/dl Est Creatinine Clear Calc Drug Dose 56.1 ml/min Estimated GFR () 62.5 Estimated GFR (Non- 53.9 BUN/Creatinine Ratio 14.8 10-20 Random Glucose 158 70-99 mg/dl Calcium Level 9.8 8.5-10.1 mg/dl Magnesium Level 1.8 1.8-2.4 mg/dl Total Bilirubin 0.3 0.2-1 mg/dl Direct Bilirubin < 0.1 0-0.2 mg/dl Aspartate Amino Transf (AST/SGOT) 15 15-37 U/L Alanine Aminotransferase (ALT/SGPT) 19 12-78 U/L Alkaline Phosphatase 134 45-117 U/L Total Protein 8.3 6.4-8.2 gm/dl Albumin 3.8 3.4-5.0 gm/dl Lipase 51 73-393 U/L Urine Color YELLOW Urine Appearance CLOUDY CLEAR Urine pH 6.0 4.5-7.5 Urine Specific [place] 1.020 1.000-1.030 Urine Protein TRACE NEG Urine Glucose (UA) NEG NEG Urine Ketones TRACE NEG Urine Occult Blood 1+ NEG Urine Nitrite NEG NEG Urine Bilirubin NEG NEG Urine Urobilinogen NEG NEG Urine Leukocyte Esterase TRACE NEG Urine WBC (Auto) 1-5 0-5 /hpf Urine RBC (Auto) 5-10 0-4 /hpf Urine Hyaline Casts (Auto) 0 0-5 /lpf Urine Epithelial Cells (Auto) >30 0-5 /lpf Urine Bacteria (Auto) 2+ NEG Urine Crystals CALCIUM OXALATE NONE PRSENT Urine Pathogenic Casts 0 /lpf Microbiology Results 04/08/17 Urine Culture, Received Pending Diagnostic Radiology CT abdomen and pelvis initial read: Colitis Impression Assessment and Plan AP LGIB 2 to colitis ro cdif px currently hemodynamically stable HTN, stable chronic resp failure 2 to COPD on home O2, pulmo status at baseline DM2 on oral meds, well controlled as of recent outpx HgA1c GMF stool cdif Flagyl for now for presumptive Cdif in light of leukocytosis switch to PO Vanco if stool cdif negative (indicated for severe cdif w/ WBC > 15 K) GI consult if stool cdif negative RE colitis ISS BG goal 140-180 DVT prophylaxis SCDs RE LGIB Full code VTE Prophylaxis VTE Risk Assessment Done? Y/N: Yes Risk Level: Moderate
[2017-04-09] MEDS: TRAMADOL HCL 50 MG TAB PO PRN (02:00)
[2017-04-09] MEDS: METRONIDAZOLE / NSS 500 MG in PREMIXED NSS 100 ML IV SCH ×3 (03:00→17:21)
[2017-04-09] MEDS: HYDROmorphone INJ 0.5 MG/0.5 ML SYR IV PRN ×6 (03:01→22:20)
[2017-04-09 06:52] LABS: BASO % 0.2 %; BASO ABS # 0.03 K/uL (0-0.2); COMPLETE YES; EOS % 1.6 %; IG% 0.2 %; LYMPH % 24.7 %; LYMPH ABS # 3.44 K/uL (1.2-3.4); MEAN CELL VOLUME 88.2 fL (80-100); MEAN CORPUSCULAR HEMOGLOBIN 27.9 pg (25-34); MEAN CORPUSCULAR HGB CONC 31.7 g/dl (32-36); MEAN PLATELET VOLUME 9.4 fL (7.4-10.4); MONO % 11.1 %; NEUT % 62.2 %; PLATELET COUNT 337 K/uL (130-400); RED BLOOD COUNT 4.08 M/uL (4.2-5.4); WHITE BLOOD COUNT 13.94 K/uL (4.8-10.8)
--- NOTE | 2017-04-09 07:13 | DIAGNOSTIC IMAGING REPORT ---
CT OF THE ABDOMEN AND PELVIS WITHOUT CONTRAST, STONE PROTOCOL CLINICAL HISTORY: Lower abdominal pain and rectal bleeding. COMPARISON STUDY: CT of the abdomen and pelvis February 15, 2017. TECHNIQUE: Helical axial images of the abdomen and pelvis were obtained without IV or oral contrast according to renal stone protocol. FINDINGS: No pneumatosis, free air or portal venous gas is present. Subtle hyperdensity projects over the upper aspect of the left renal sinus. There are no ureteral calculi. There is no hydronephrosis. Evaluation of the abdomen and pelvis is suboptimal on this unenhanced examination. There is extensive left colon diverticulosis. There is long segment wall thickening of the descending colon with mild pericolonic infiltration. There is a suspected large diverticulum of the sigmoid colon which is unchanged. A 1.9 cm left adrenal lesion reflects an adenoma. There is a suspected 1.3 cm right renal cyst. There is no evidence for a bowel obstruction. No suspicious skeletal lesions are evident. The findings suggest pelvic floor relaxation. IMPRESSION: 1. Moderate wall thickening of the descending colon with mild pericolonic infiltration. This represents a nonspecific colitis although the distribution raises the possibility of ischemic colitis. An infectious process could appear similar. 2. Otherwise, unchanged appearance of the abdomen and pelvis, as described above. Electronically signed by: Shadi Ravi M.D. 04/09/2017 7:12 AM Dictated Date/Time: 04/09/2017 7:06 AM
[2017-04-09] MEDS: INSULIN ASPART 100 UNITS/ML 3 ML PEN SC SCH ×4 (07:50→20:52)
[2017-04-09] MEDS: PANTOprazole SOD 40 MG TAB PO SCH ×2 (08:37→20:55)
[2017-04-09] MEDS: MULTIVITAMIN TAB PO SCH (08:37)
[2017-04-09] MEDS: RANITIDINE HCL 150 MG TAB PO SCH ×2 (08:37→20:56)
[2017-04-09] MEDS: PROMETHAZINE HCL INJ 12.5 MG in SODIUM CHLORIDE 0.9% 50ML 50 ML IV PRN ×2 (08:37→22:20)
[2017-04-09] MEDS: LACTOBACILLUS ACIDOPHILUS (FLORANEX) TAB PO SCH ×4 (08:38→20:56)
[2017-04-09] MEDS: DILTIAZEM HCL 180 MG ER CAP PO SCH (08:38)
[2017-04-09] MEDS: BRINZOLAMIDE (AZOPT) OPS 10 ML BTL OPB SCH ×2 (08:41→20:55)
[2017-04-09] MEDS: IPRATROPIUM BROMIDE/ALBUTEROL respimat INH INH SCH ×4 (08:45→20:54)
[2017-04-09] MEDS ORDERED: ZAFIRLUKAST 20 MG PO SCH (09:00)
[2017-04-09] MEDS: HYDROCODONE/ACETAMOPHEN 5/325MG TAB PO PRN ×2 (11:11→19:56)
[2017-04-09 13:10] LABS: HEMATOCRIT 34.3 % (37-47)
--- NOTE | 2017-04-09 16:04 | Gastrointestinal Consultation ---
Gastrointestinal Consultation Date of Consultation: Apr 09, 2017 Attending Physician: Victor Manuel Consulting Physician: Chanelle Reason for Consultation: LGI History of Present Illness Patient is a 76 year old female w/ PMH of GI bleed, GERD, diverticulosis, T2DM and others listed below who presented through the ED for evaluation of abdominal pain and rectal bleeding x 1 day. GI has been consulted for lower GI bleeding. Pt was seen and evaluated. Her daughter is at bedside. She tells me yesterday she developed diffuse abdominal pain, worse in bilateral lower quadrants. This was worse before a bowel movement and unresolved with BMs. BMs were normal in color (brown) to start but she eventually developed BRBPR with occasional flecks of stool and clots. She had numerous episodes which prompted ED evaluation. There is associated nausea. No vomiting. She denies any upper GI symptoms - no epigastric pain, burning, regurgitation, vomiting, burping, belching. She follows with Dr. Eagle as an outpatient and was most recently seen on for nausea, post prandial fullness and lower abdominal pain. He had suggested following a low FODMAPs diet, MiraLax twice daily and discontinuing statin for [address] 04/08/17: Moderate wall thickening of the descending colon with mild pericolonic infiltration. This represents a nonspecific colitis although the distribution raises the possibility of ischemic colitis. An infectious process could appear similar. Otherwise, unchanged appearance of the abdomen and pelvis , as described above. 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 Z-line regular, 38 cm from the incisors. Rule out malignancy, gastric tumor in the cardia. Biopsied. Gastritis. Biopsied. Normal examined duodenum. Biopsied. Colonoscopy 05/29/16: The perianal and digital rectal examinations were normal. Multiple small and large-mouthed diverticula were found in the entire colon. There was fresh red blood throughout the colon, although the bleeding point was not identified Past Medical/Surgical History Medical Problems: (1) Abdominal pain Status: Acute (2) Central abdominal pain Status: Acute (3) Chest pain Status: Acute (4) Chest pain Status: Acute (5) Colitis Status: Acute (6) Leukocytosis Status: Acute (7) Lower GI bleed Status: Acute (8) Nausea Status: Acute Past Medical History: Asthma, Carpal Tunnel Syndrome, COPD, T2DM, Diverticulosis, Hyperlipidemia, HTN , OA, sleep apnea, IBS, chronic nausea, post-prandial bloating Past Surgical History: colonoscopy, EGD, EUS, appendectomy, hernia repair, cholecystectomy, tonsillectomy, tubal ligation Family History Cancer Diabetes mellitus Gallbladder disease Heart disease Hypertension 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 Smoking Status: Never Smoker Alcohol Use: none Drug Use: none Marital Status: Occupation Status: retired, other Allergies Coded Allergies: Iodinated Contrast Media (Verified Allergy, Intermediate, HIVES-GI SYMPTOMS, 04/08/17) Baxter (Verified Allergy, Intermediate, HIVES, 04/08/17) Bupropion (Verified Adverse Reaction, Mild, GI SYMPTOMS, 04/08/17) Enalapril (Verified Adverse Reaction, Mild, GI SYMPTOMS, 04/08/17) Escitalopram (Verified Adverse Reaction, Mild, GI SYMPTOMS, 04/08/17) Metoprolol (Verified Adverse Reaction, Mild, LOWERS PULSE RATE, 04/08/17) Lisinopril (Verified Adverse Reaction, Unknown, FAST HEART BEAT, 04/08/17) Valsartan (Verified Adverse Reaction, Unknown, FAST HEART BEAT, 04/08/17) Verapamil (Verified Adverse Reaction, Unknown, GI UPSET, 04/08/17) Current Medications Home Meds and Scripts Medications Dose Route/Sig Max Daily Dose Days Date Category Dose Instructions Levalbuterol Tartrate Hfa (Levalbuterol Tartrate) 45 Mcg/Act Aer 1 Dose PO DAILY 04/09/17 Reported Glimepiride 4 Mg Tab 2 Mg PO DAILY 04/09/17 Reported Trazodone (Trazodone HCl) 50 Mg Tab 50 Mg PO HS 04/09/17 Reported Ondansetron Odt (Ondansetron) 8 Mg Soltab 8 Mg PO TID PRN 04/09/17 Reported Proventil 0.083% 2.5MG/3ML (Albuterol Sulf) 2.5 Mg/3 Ml Nebu 2.5 Mg INH BID PRN 02/07/17 Reported Multivitamin (Multivitamins) Tab 1 Tab PO QAM 10/30/16 Reported Combivent Respimat (Ipratropium-Albuterol) 1 Aer Aer 1 Puffs INH QID 3/20/16 Reported Bentyl (Dicyclomine Hcl) 20 Mg Tab 20 Mg PO QAM 12/31/15 Reported Diltiazem Hcl Er (Diltiazem Hcl Coated Beads) 360 Mg Cap 360 Mg PO QAM 12/31/15 Reported Catapres (Clonidine Hcl) 0.1 Mg Tab 1 Tab PO DIRECTED PRN 90 07/24/15 Reported TAKE IF B/P > 170/90 Vitamin D 1000 Unit (Cholecalciferol) 1,000 Unit Cap 1,000 Inter.unit PO QAM 07/24/15 Reported Lasix (Furosemide) 40 Mg Tab 1 Tab PO DAILY 07/24/15 Reported Do not take on a regular basis. May take as needed for fluid retention (swelling of ankles or feet). Polyethylene Glycol 3350 (Polyethylene Glycol 3350 (Bulk) 1 Pow Pow 17 Gm PO DAILY 30 07/24/15 Reported Oxygen Gas 4 Liter NA HS 07/24/15 Reported Azopt Oph (Brinzolamide) 1 % Tammie 1 Drops OPB BID 90 07/24/15 Reported Lumigan (Bimatoprost) 0.01 % Talia 1 Drops OPB HS 90 07/24/15 Reported Vitamin C (Ascorbic Acid) 500 Mg Cap 1 Cap PO QAM 07/24/15 Reported Iron (Ferrous Sulfate) 325 Mg Tab 1 Tab PO QAM 07/24/15 Reported Probiotic (Probiotic Product) 1 Cap Cap 1 Cap PO QAM 07/24/15 Reported Hytrin (Terazosin Hcl) 2 Mg Cap 1 Cap PO HS 07/24/15 Reported ONLY IF BP IS HIGH PER DOCTOR SCHEDULE Prilosec (Omeprazole) 20 Mg Cap 1 Cap PO BID 30 07/24/15 Reported Accolate (Zafirlukast) 20 Mg Tab 20 Mg PO QAM 07/24/15 Reported Klor-Con (Potassium Chloride) 20 Meq Tabcr 20 Meq PO DAILY 07/24/15 Reported Do not take on a regular basis. Take on days that you take furosemide (Lasix) for fluid retention. [place] 5MG/325MG (Acetaminophen/Hydrocodone Bitart) Tab 1 Tab PO Q6H PRN 30 07/24/15 Reported PRN PAIN Ultram (Tramadol HCl) 50 Mg Tab 50 Mg PO Q6H PRN 07/24/15 Reported Zantac (Ranitidine HCl) 150 Mg Tab 1 Tab PO BID 90 07/24/15 Reported Review of Systems Constitutional: No fever, No chills Respiratory: + shortness of breath (unchanged from baseline), No cough Cardiac: No chest pain Abdomen: + pain, + nausea, + diarrhea, + GI bleeding, No vomiting, No constipation Physical Exam Date Time Temp Pulse Resp B/P (MAP) Pulse Ox O2 Delivery O2 Flow Rate FiO2 04/09/17 15:11 37.1 58 18 143/67 (92) 98 4.0 04/09/17 08:00 93 Room Air 04/09/17 07:22 37.1 74 18 167/53 (91) 92 Room Air 04/09/17 02:17 36.7 86 16 174/75 Nasal Cannula 4.0 04/09/17 01:31 81 16 150/87 99 04/09/17 00:27 79 18 124/81 92 Room Air 04/08/17 23:24 89 04/08/17 23:20 94 Room Air 04/08/17 23:10 36.8 95 20 147/85 93 Room Air General Appearance: no apparent distress (pt is sitting upright in bed, clear liquid tray at bedside, daughter is in room) Eyes: PERRL ENT: hearing grossly normal Neck: supple Respiratory/Chest: lungs clear, normal breath sounds, no respiratory distress, + pertinent finding (wearing O2) Cardiovascular: regular rate, rhythm Abdomen: normal bowel sounds, soft, no organomegaly, + tenderness (generalized tenderness, worse in bilateral lower quadrants) Neurologic/Psych: alert, normal mood/affect, oriented x 3 Skin: normal color, warm/dry Laboratory Results Last 24 Hours Test 04/08/17 22:25 04/08/17 23:30 04/09/17 06:09 04/09/17 07:26 White Blood Count 19.83 K/uL 13.94 K/uL Red Blood Count 4.48 M/uL 4.08 M/uL Hemoglobin 12.8 g/dL 11.4 g/dL Hematocrit 39.1 % 36.0 % Mean Corpuscular Volume 87.3 fL 88.2 fL Mean Corpuscular Hemoglobin 28.6 pg 27.9 pg Mean Corpuscular Hemoglobin Concent 32.7 g/dl 31.7 g/dl Platelet Count 371 K/uL 337 K/uL Mean Platelet Volume 9.2 fL 9.4 fL Neutrophils (%) (Auto) 71.3 % 62.2 % Lymphocytes (%) (Auto) 19.1 % 24.7 % Monocytes (%) (Auto) 8.3 % 11.1 % Eosinophils (%) (Auto) 0.8 % 1.6 % Basophils (%) (Auto) 0.2 % 0.2 % Neutrophils # (Auto) 14.16 K/uL 8.67 K/uL Lymphocytes # (Auto) 3.78 K/uL 3.44 K/uL Monocytes # (Auto) 1.65 K/uL 1.55 K/uL Eosinophils # (Auto) 0.15 K/uL 0.22 K/uL Basophils # (Auto) 0.03 K/uL 0.03 K/uL RDW Standard Deviation 43.7 fL 44.9 fL RDW Coefficient of Variation 13.7 % 13.8 % Immature Granulocyte % (Auto) 0.3 % 0.2 % Immature Granulocyte # (Auto) 0.06 K/uL 0.03 K/uL Ovalocytes 1+ Prothrombin Time 10.4 SECONDS Prothromb Time International Ratio 1.0 Activated Partial Thromboplast Time 28.0 SECONDS Partial Thromboplastin Ratio 1.1 Sodium Level 137 mmol/L Potassium Level 3.7 mmol/L Chloride Level 104 mmol/L Carbon Dioxide Level 27 mmol/L Anion Gap 6.0 mmol/L Blood Urea Nitrogen 15 mg/dl Creatinine 1.00 mg/dl Est Creatinine Clear Calc Drug Dose 56.1 ml/min Estimated GFR () 62.5 Estimated GFR (Non- 53.9 BUN/Creatinine Ratio 14.8 Random Glucose 158 mg/dl Calcium Level 9.8 mg/dl Magnesium Level 1.8 mg/dl Total Bilirubin 0.3 mg/dl Direct Bilirubin < 0.1 mg/dl Aspartate Amino Transf (AST/SGOT) 15 U/L Alanine Aminotransferase (ALT/SGPT) 19 U/L Alkaline Phosphatase 134 U/L Total Protein 8.3 gm/dl Albumin 3.8 gm/dl Lipase 51 U/L Urine Color YELLOW Urine Appearance CLOUDY Urine pH 6.0 Urine Specific [place] 1.020 Urine Protein TRACE Urine Glucose (UA) NEG Urine Ketones TRACE Urine Occult Blood 1+ Urine Nitrite NEG Urine Bilirubin NEG Urine Urobilinogen NEG Urine Leukocyte Esterase TRACE Urine WBC (Auto) 1-5 /hpf Urine RBC (Auto) 5-10 /hpf Urine Hyaline Casts (Auto) 0 /lpf Urine Epithelial Cells (Auto) >30 /lpf Urine Bacteria (Auto) 2+ Urine Crystals CALCIUM OXALATE Urine Pathogenic Casts /lpf Bedside Glucose 125 mg/dl Test 04/09/17 11:20 04/09/17 12:39 Bedside Glucose 99 mg/dl Hemoglobin 11.0 g/dL Hematocrit 34.3 % Impression Patient is a 76 year old female with IBS-C and history of LGI bleed who presented through the ED with abrupt onset abdominal pain (constant, generalized but worse in bilateral lower quadrants, does not radiate, associated with nausea) followed by new onset BRBPR. CT with moderate wall thickening of the descending colon with mild pericolonic infiltration suspicious for ischemic colitis. Will need to rule out infectious source of GI blood loss as WBC was 19 on admission. Presently on Flagyl. Plan Stool Culture Stool for C.diff Monitor stools Trend H&H Transfuse as needed Continue ABX PPI BID Antiemetics PRN Pain medications PRN GI will follow. Please call with any questions or concerns. ATTESTATION: I have performed a history and physical examination of this patient and reviewed the electronic record. Specifically, on physical examination there is diffuse abdominal tenderness. I have discussed the case with NIECY Mullins. The above note reflects my findings, conclusions, and recommendations. Mushtaq Roca MD
[2017-04-09] MEDS: ONDANSETRON INJ 2 MG/ML 2 ML VIAL IV PRN (16:22)
[2017-04-09 18:44] LABS: HEMATOCRIT 35.4 % (37-47)
[2017-04-09] MEDS: BIMATOPROST 0.01% OP SOLN 2.5 ML BTL OPB SCH (20:54)
--- NOTE | 2017-04-09 22:38 | Progress Note ---
Medicine Progress Note Date & Time of Visit: Apr 09, 2017 at ~ 15:30 . Subjective Admitted last night with abdominal pain and rectal bleeding that started earlier in the day. Persistent left-sided abdominal pain and rectal bleeding today. No nausea or vomiting. No fever. No chest pain. No cough or shortness of breath. . Objective Last 8 Hrs Date Time Temp Pulse Resp B/P (MAP) Pulse Ox O2 Delivery O2 Flow Rate FiO2 04/09/17 20:55 68 157/70 (99) 04/09/17 20:00 Nasal Cannula 4.0 04/09/17 16:10 98 Nasal Cannula 4.0 04/09/17 15:11 37.1 58 18 143/67 (92) 98 4.0 Physical Exam: General- lying in bed, no acute distress Neck- no JVD Lungs- clear to auscultation Heart- RRR Abdomen- + BS, soft, nondistended, moderate left-sided tenderness without rebound or guarding Extremities- no pretibial edema or calf tenderness Neuro- alert, oriented . Laboratory Results: Last 24 Hours Test 04/08/17 23:30 04/09/17 06:09 04/09/17 07:26 04/09/17 11:20 Urine Color YELLOW Urine Appearance CLOUDY Urine pH 6.0 Urine Specific [place] 1.020 Urine Protein TRACE Urine Glucose (UA) NEG Urine Ketones TRACE Urine Occult Blood 1+ Urine Nitrite NEG Urine Bilirubin NEG Urine Urobilinogen NEG Urine Leukocyte Esterase TRACE Urine WBC (Auto) 1-5 /hpf Urine RBC (Auto) 5-10 /hpf Urine Hyaline Casts (Auto) 0 /lpf Urine Epithelial Cells (Auto) >30 /lpf Urine Bacteria (Auto) 2+ Urine Crystals CALCIUM OXALATE Urine Pathogenic Casts /lpf White Blood Count 13.94 K/uL Red Blood Count 4.08 M/uL Hemoglobin 11.4 g/dL Hematocrit 36.0 % Mean Corpuscular Volume 88.2 fL Mean Corpuscular Hemoglobin 27.9 pg Mean Corpuscular Hemoglobin Concent 31.7 g/dl Platelet Count 337 K/uL Mean Platelet Volume 9.4 fL Neutrophils (%) (Auto) 62.2 % Lymphocytes (%) (Auto) 24.7 % Monocytes (%) (Auto) 11.1 % Eosinophils (%) (Auto) 1.6 % Basophils (%) (Auto) 0.2 % Neutrophils # (Auto) 8.67 K/uL Lymphocytes # (Auto) 3.44 K/uL Monocytes # (Auto) 1.55 K/uL Eosinophils # (Auto) 0.22 K/uL Basophils # (Auto) 0.03 K/uL RDW Standard Deviation 44.9 fL RDW Coefficient of Variation 13.8 % Immature Granulocyte % (Auto) 0.2 % Immature Granulocyte # (Auto) 0.03 K/uL Bedside Glucose 125 mg/dl 99 mg/dl Test 04/09/17 12:39 04/09/17 16:04 04/09/17 18:27 04/09/17 20:12 Hemoglobin 11.0 g/dL 10.9 g/dL Hematocrit 34.3 % 35.4 % Bedside Glucose 127 mg/dl 105 mg/dl Date/Time Source Procedure Growth Status 04/09/17 16:52 Stool Shiga Toxin Test Pending Received 04/09/17 16:52 Stool Stool Culture Pending Received 04/09/17 16:52 Stool C.difficile Toxin B Gene (PCR) - Final No C. difficile toxin B gene detected Complete 04/08/17 23:30 Urine , Clean Catch Urine Culture Pending Received Assessment & Plan ABDOMINAL PAIN / LOWER GI BLEED Hemoglobin at time of admission was 12.8. Hemoglobin this morning = 11.4. History of diverticulosis and previous diverticular bleed. CT demonstrated moderate thickening of the wall of the descending colon with associated pericolonic infiltration. Consider ischemic colitis, infectious colitis, other etiologies. Check stool for C. difficile, routine enteric pathogens. Continue IV metronidazole. Consult GI. HYPERTENSION Continue diltiazem and terazosin with hold parameters. Follow and titrate Rx. ASTHMA / COPD Stable. Continue usual meds. DM TYPE II Hold oral agents in light of hospitalization and acute illness. Check hemoglobin A1c. FBS today = 125. Insulin coverage PRN. VTE PROPHYLAXIS No anticoagulants in light of GI bleed. SCD's. Ambulate. DISPOSITION Expected discharge to home. Internal Medicine follow-up with Dr. Marcela Pinto. . Current Inpatient Medications: Current Inpatient Medications Medications (Trade) Dose Ordered Sig/Robson Route Start Time Stop Time Status Last Admin Dose Admin Metronidazole 500 mg/Prmx 100 ml @ 100 mls/hr Q8H IV 04/09/17 02:00 04/19/17 01:59 04/09/17 17:21 100 MLS/HR Acetaminophen (Tylenol Tab) 650 mg Q4H PRN PO 04/09/17 01:15 05/09/17 01:14 Insulin Aspart (novoLOG ASPART) SLIDING SCALE If C... ACHS SC 04/09/17 06:30 05/09/17 06:59 Glucose (Glucose 40% Gel) 15-30 GRAMS 15 GRAMS... UD PRN PO 04/09/17 01:15 05/09/17 01:14 Glucose (Glucose Chew Tab) 4-8 Tablets 4 Tabl... UD PRN PO 04/09/17 01:15 05/09/17 01:14 Dextrose (Dextrose 50% 50ML Syringe) 25-50ML OF 50% DW IV FOR... UD PRN IV 04/09/17 01:15 05/09/17 01:14 Glucagon (Glucagon Inj) 1 mg UD PRN SQ 04/09/17 01:15 05/09/17 01:14 Brinzolamide (Azopt) 1 drops BID OPB 04/09/17 09:00 05/09/17 08:59 04/09/17 20:55 1 DROPS Acetaminophen/ Hydrocodone Bitart ([place] 5/325 Tab) 1 tab Q6H PRN PO 04/09/17 01:15 04/23/17 01:14 04/09/17 19:56 1 TAB Albuterol/ Ipratropium (Combivent Respimat Inh) 1 puffs QID INH 04/09/17 09:00 05/09/17 08:59 04/09/17 20:54 1 PUFFS Multivitamins (Multivitamin Tab) 1 tab QAM PO 04/09/17 09:00 05/09/17 08:59 04/09/17 08:37 1 TAB Ranitidine HCl (zANTac TAB) 150 mg BID PO 04/09/17 09:00 05/09/17 08:59 04/09/17 20:56 150 MG Tramadol HCl (Ultram Tab) 50 mg Q6H PRN PO 04/09/17 01:15 05/09/17 01:14 04/09/17 02:00 50 MG Bimatoprost (Lumigan 0.01%) 1 drops HS OPB 04/09/17 21:00 05/09/17 20:59 04/09/17 20:54 1 DROPS Pantoprazole Sodium (Protonix Tab) 40 mg BID PO 04/09/17 09:00 05/09/17 08:59 04/09/17 20:55 40 MG Lactobacillus Acidophilus (Floranex Tab) 1 tab QID PO 04/09/17 09:00 05/09/17 08:59 04/09/17 20:56 1 TAB Diltiazem HCl (Dilacor Xr Cap) 360 mg QAM PO 04/09/17 09:00 05/09/17 08:59 04/09/17 08:38 360 MG Ondansetron HCl (Zofran Inj) 4 mg Q6H PRN IV 04/09/17 01:15 05/09/17 01:14 04/09/17 16:22 4 MG Promethazine HCl 12.5 mg/Sodium Chloride 50.5 ml @ 204 mls/hr Q6H PRN IV 04/09/17 01:15 05/09/17 01:14 04/09/17 22:20 204 MLS/HR Hydromorphone HCl (Dilaudid Inj) 0.5 mg Q3H PRN IV 04/09/17 01:15 04/23/17 01:14 04/09/17 22:20 0.5 MG Miscellaneous Information (Order Awaiting Action) 1 ea QS N/A 04/09/17 08:00 05/09/17 07:59 Terazosin HCl (Hytrin Cap) 2 mg HS PO 04/09/17 21:00 05/09/17 08:59 04/09/17 20:57 2 MG
[2017-04-09] MEDS ORDERED: ONDANSETRON INJ 2 MG/ML 2 ML VIAL IV PRN (22:45)
--- NOTE | 2017-04-10 00:36 | Progress Note ---
Internal Med Progress Note Date of Service: Apr 10, 2017. Provider Documentation: Made aware by RN of continuous bloody BM as of & PM last night and negative stool cdif. HH stable at 10-11. Will add Ceftriaxone to Flagyl for suspected ischemic colitis. Will relay to AM provider. Vital Signs: Date Time Temp Pulse Resp B/P (MAP) Pulse Ox O2 Delivery O2 Flow Rate FiO2 04/10/17 08:00 Room Air 04/10/17 07:38 36.9 59 16 108/52 (70) 97 Room Air 04/10/17 00:00 Nasal Cannula 4.0 04/09/17 23:34 36.8 65 18 108/61 (77) 98 Nasal Cannula 3.0 04/09/17 20:55 68 157/70 (99) 04/09/17 20:00 Nasal Cannula 4.0 04/09/17 16:10 98 Nasal Cannula 4.0 04/09/17 15:11 37.1 58 18 143/67 (92) 98 4.0 Lab Results: Results Past 24 Hours Test 04/09/17 11:20 04/09/17 12:39 04/09/17 16:04 04/09/17 18:27 Range/Units Bedside Glucose 99 127 70-90 mg/dl Hemoglobin 11.0 10.9 12.0-16.0 g/dL Hematocrit 34.3 35.4 37-47 % Test 04/09/17 20:12 04/10/17 05:19 04/10/17 07:43 Range/Units Bedside Glucose 105 117 70-90 mg/dl White Blood Count 14.02 4.8-10.8 K/uL Red Blood Count 3.62 4.2-5.4 M/uL Hemoglobin 10.4 12.0-16.0 g/dL Hematocrit 32.3 37-47 % Mean Corpuscular Volume 89.2 80-100 fL Mean Corpuscular Hemoglobin 28.7 25-34 pg Mean Corpuscular Hemoglobin Concent 32.2 32-36 g/dl Platelet Count 271 130-400 K/uL Mean Platelet Volume 9.2 7.4-10.4 fL Neutrophils (%) (Auto) 61.6 % Lymphocytes (%) (Auto) 23.1 % Monocytes (%) (Auto) 11.8 % Eosinophils (%) (Auto) 3.3 % Basophils (%) (Auto) 0.1 % Neutrophils # (Auto) 8.62 1.4-6.5 K/uL Lymphocytes # (Auto) 3.24 1.2-3.4 K/uL Monocytes # (Auto) 1.66 0.11-0.59 K/uL Eosinophils # (Auto) 0.46 0-0.5 K/uL Basophils # (Auto) 0.02 0-0.2 K/uL RDW Standard Deviation 45.9 36.4-46.3 fL RDW Coefficient of Variation 13.9 11.5-14.5 % Immature Granulocyte % (Auto) 0.1 % Immature Granulocyte # (Auto) 0.02 0.00-0.02 K/uL Ovalocytes 1+ Sodium Level 143 136-145 mmol/L Potassium Level 3.6 3.5-5.1 mmol/L Chloride Level 109 98-107 mmol/L Carbon Dioxide Level 29 21-32 mmol/L Anion Gap 5.0 3-11 mmol/L Blood Urea Nitrogen 7 7-18 mg/dl Creatinine 0.83 0.60-1.20 mg/dl Est Creatinine Clear Calc Drug Dose 67.2 ml/min Estimated GFR () 78.3 Estimated GFR (Non- 67.5 BUN/Creatinine Ratio 8.8 10-20 Random Glucose 123 70-99 mg/dl Calcium Level 8.9 8.5-10.1 mg/dl Microbiology Results 04/09/17 Shiga Toxin Test, Received Pending 04/09/17 Stool Culture, Received Pending 04/09/17 C.difficile Toxin B Gene (PCR) - Final, Complete No C. difficile toxin B gene detected
[2017-04-10] MEDS: CEFTRIAXONE SOD INJ 1 GM in DEXTROSE 5% ADD-VANTAGE 50ML 50 ML IV SCH ×2 (01:22→21:55)
[2017-04-10] MEDS: METRONIDAZOLE / NSS 500 MG in PREMIXED NSS 100 ML IV SCH ×3 (01:55→17:59)
[2017-04-10] MEDS: HYDROCODONE/ACETAMOPHEN 5/325MG TAB PO PRN ×3 (04:57→21:55)
[2017-04-10 05:46] LABS: HEMATOCRIT 32.3 % (37-47); MEAN CELL VOLUME 89.2 fL (80-100); MEAN CORPUSCULAR HEMOGLOBIN 28.7 pg (25-34); MEAN CORPUSCULAR HGB CONC 32.2 g/dl (32-36); MEAN PLATELET VOLUME 9.2 fL (7.4-10.4); PLATELET COUNT 271 K/uL (130-400); RED BLOOD COUNT 3.62 M/uL (4.2-5.4); WHITE BLOOD COUNT 14.02 K/uL (4.8-10.8)
[2017-04-10 06:19] LABS: BASO % 0.1 %; BASO ABS # 0.02 K/uL (0-0.2); COMPLETE YES; EOS % 3.3 %; IG% 0.1 %; LYMPH % 23.1 %; LYMPH ABS # 3.24 K/uL (1.2-3.4); MONO % 11.8 %; NEUT % 61.6 %; OVALOCYTES 1+
[2017-04-10 06:25] LABS: BUN/CREATININE RATIO 8.8 (10-20); CREATININE 0.83 mg/dl (0.60-1.20); POTASSIUM 3.6 mmol/L (3.5-5.1)
[2017-04-10 07:10] LABS: CALCIUM 8.9 mg/dl (8.5-10.1)
[2017-04-10 07:38] VITALS: BP 108/52; PULSE 59; TEMP 36.9; O2SAT 97
--- NOTE | 2017-04-10 07:40 | Gastroenterology Progress Note ---
Progress Note Date of Service: Apr 10, 2017 Subjective Pt evaluation today including: conversation w/ patient, physical exam, chart review, lab review No acute events overnight. C.Diff was negative. Culture pending. 2 small bloody BMs since she was evaluated yesterday. No black stools. No clots. No change in pain with BM. She tells me her abdominal pain is now all suprapubic and LLQ. It is constant and can be aggravated by movement. She is tolerating a clear liquid diet. She is on cipro/Flagyl. White count improving since admission. She is more SOB this AM. HGB 12.8 --> 10.4. Denies any other symptoms. Review of Systems Constitutional: No fever, No chills Respiratory: + shortness of breath, No cough Cardiac: No chest pain Abdomen: + pain, + diarrhea, + GI bleeding, No nausea, No vomiting Medications Current Inpatient Medications Medications (Trade) Dose Ordered Sig/Robson Route Start Time Stop Time Status Last Admin Dose Admin Acetaminophen (Tylenol Tab) 650 mg Q4H PRN PO 04/09/17 01:15 05/09/17 01:14 Insulin Aspart (novoLOG ASPART) SLIDING SCALE If C... ACHS SC 04/09/17 06:30 05/09/17 06:59 Glucose (Glucose 40% Gel) 15-30 GRAMS 15 GRAMS... UD PRN PO 04/09/17 01:15 05/09/17 01:14 Glucose (Glucose Chew Tab) 4-8 Tablets 4 Tabl... UD PRN PO 04/09/17 01:15 05/09/17 01:14 Dextrose (Dextrose 50% 50ML Syringe) 25-50ML OF 50% DW IV FOR... UD PRN IV 04/09/17 01:15 05/09/17 01:14 Glucagon (Glucagon Inj) 1 mg UD PRN SQ 04/09/17 01:15 05/09/17 01:14 Brinzolamide (Azopt) 1 drops BID OPB 04/09/17 09:00 05/09/17 08:59 04/09/17 20:55 1 DROPS Acetaminophen/ Hydrocodone Bitart ([place] 5/325 Tab) 1 tab Q6H PRN PO 04/09/17 01:15 04/23/17 01:14 04/10/17 04:57 1 TAB Albuterol/ Ipratropium (Combivent Respimat Inh) 1 puffs QID INH 04/09/17 09:00 05/09/17 08:59 04/09/17 20:54 1 PUFFS Multivitamins (Multivitamin Tab) 1 tab QAM PO 04/09/17 09:00 05/09/17 08:59 04/09/17 08:37 1 TAB Ranitidine HCl (zANTac TAB) 150 mg BID PO 04/09/17 09:00 05/09/17 08:59 04/09/17 20:56 150 MG Tramadol HCl (Ultram Tab) 50 mg Q6H PRN PO 04/09/17 01:15 05/09/17 01:14 04/09/17 02:00 50 MG Bimatoprost (Lumigan 0.01%) 1 drops HS OPB 04/09/17 21:00 05/09/17 20:59 04/09/17 20:54 1 DROPS Pantoprazole Sodium (Protonix Tab) 40 mg BID PO 04/09/17 09:00 05/09/17 08:59 04/09/17 20:55 40 MG Lactobacillus Acidophilus (Floranex Tab) 1 tab QID PO 04/09/17 09:00 05/09/17 08:59 04/09/17 20:56 1 TAB Diltiazem HCl (Dilacor Xr Cap) 360 mg QAM PO 04/09/17 09:00 05/09/17 08:59 04/09/17 08:38 360 MG Ondansetron HCl (Zofran Inj) 4 mg Q6H PRN IV 04/09/17 01:15 05/09/17 01:14 04/09/17 16:22 4 MG Hydromorphone HCl (Dilaudid Inj) 0.5 mg Q3H PRN IV 04/09/17 01:15 04/23/17 01:14 04/09/17 22:20 0.5 MG Miscellaneous Information (Order Awaiting Action) 1 ea QS N/A 04/09/17 08:00 05/09/17 07:59 Terazosin HCl (Hytrin Cap) 2 mg HS PO 04/09/17 21:00 05/09/17 08:59 04/09/17 20:57 2 MG Ondansetron HCl (Zofran Inj) 4 mg Q6H PRN IV 04/09/17 22:45 05/09/17 22:44 Metronidazole 500 mg/Prmx 100 ml @ 100 mls/hr Q8H IV 04/10/17 02:00 04/18/17 01:59 04/10/17 01:55 100 MLS/HR Ceftriaxone Sodium 1 gm/ Dextrose 50 ml @ 100 mls/hr DAILY@2300 IV 04/10/17 01:30 04/20/17 01:29 04/10/17 01:22 100 MLS/HR Ciprofloxacin/ Dextrose 400 mg/ Prmx 200 ml @ 100 mls/hr Q12 IV 04/10/17 09:00 04/20/17 08:59 Objective Vital Signs Date Time Temp Pulse Resp B/P (MAP) Pulse Ox O2 Delivery O2 Flow Rate FiO2 04/10/17 00:00 Nasal Cannula 4.0 04/09/17 23:34 36.8 65 18 108/61 (77) 98 Nasal Cannula 3.0 04/09/17 20:55 68 157/70 (99) 04/09/17 20:00 Nasal Cannula 4.0 04/09/17 16:10 98 Nasal Cannula 4.0 04/09/17 15:11 37.1 58 18 143/67 (92) 98 4.0 04/09/17 08:00 93 Room Air Physical Exam General Appearance: no apparent distress Eyes: PERRL ENT: hearing grossly normal Neck: supple Respiratory/Chest: lungs clear Cardiovascular: regular rate, rhythm Abdomen: normal bowel sounds, soft, no organomegaly, + tenderness (LLQ) Neurologic/Psych: alert, normal mood/affect, oriented x 3 Skin: normal color Laboratory Results Last 24 Hours Test 04/09/17 11:20 04/09/17 12:39 04/09/17 16:04 04/09/17 18:27 Bedside Glucose 99 mg/dl 127 mg/dl Hemoglobin 11.0 g/dL 10.9 g/dL Hematocrit 34.3 % 35.4 % Test 04/09/17 20:12 04/10/17 05:19 Bedside Glucose 105 mg/dl White Blood Count 14.02 K/uL Red Blood Count 3.62 M/uL Hemoglobin 10.4 g/dL Hematocrit 32.3 % Mean Corpuscular Volume 89.2 fL Mean Corpuscular Hemoglobin 28.7 pg Mean Corpuscular Hemoglobin Concent 32.2 g/dl Platelet Count 271 K/uL Mean Platelet Volume 9.2 fL Neutrophils (%) (Auto) 61.6 % Lymphocytes (%) (Auto) 23.1 % Monocytes (%) (Auto) 11.8 % Eosinophils (%) (Auto) 3.3 % Basophils (%) (Auto) 0.1 % Neutrophils # (Auto) 8.62 K/uL Lymphocytes # (Auto) 3.24 K/uL Monocytes # (Auto) 1.66 K/uL Eosinophils # (Auto) 0.46 K/uL Basophils # (Auto) 0.02 K/uL RDW Standard Deviation 45.9 fL RDW Coefficient of Variation 13.9 % Immature Granulocyte % (Auto) 0.1 % Immature Granulocyte # (Auto) 0.02 K/uL Ovalocytes 1+ Sodium Level 143 mmol/L Potassium Level 3.6 mmol/L Chloride Level 109 mmol/L Carbon Dioxide Level 29 mmol/L Anion Gap 5.0 mmol/L Blood Urea Nitrogen 7 mg/dl Creatinine 0.83 mg/dl Est Creatinine Clear Calc Drug Dose 67.2 ml/min Estimated GFR () 78.3 Estimated GFR (Non- 67.5 BUN/Creatinine Ratio 8.8 Random Glucose 123 mg/dl Calcium Level 8.9 mg/dl Assessment and Plan Patient is a 76 year old female with IBS-C and history of LGI bleed who presented through the ED with abrupt onset abdominal pain (constant, generalized but worse in bilateral lower quadrants, does not radiate, associated with nausea) followed by new onset BRBPR. CT with moderate wall thickening of the descending colon with mild pericolonic infiltration suspicious for ischemic colitis. Will need to rule out infectious source of GI blood loss as WBC was 19 on admission. Presently on Cipro/Flagyl. This AM her abdominal pain is localized to suprapubic and LLQ. She has had two small bloody BMs since evaluation yesterday. Check Stool Culture, C.diff negative Monitor stools Trend H&H Transfuse as needed Continue ABX - known diverticulosis PPI BID Antiemetics PRN Pain medications PRN ATTESTATION: I have performed a history and physical examination of this patient and reviewed the electronic record. Specifically, on physical examination there is left sided abdominal tenderness. I have discussed the case with NIECY Mullins. The above note reflects my findings, conclusions, and recommendations. Mushtaq Roca MD
[2017-04-10] MEDS: INSULIN ASPART 100 UNITS/ML 3 ML PEN SC SCH ×4 (07:50→21:00)
[2017-04-10] MEDS: LACTOBACILLUS ACIDOPHILUS (FLORANEX) TAB PO SCH ×4 (07:52→21:56)
[2017-04-10] MEDS: HYDROmorphone INJ 0.5 MG/0.5 ML SYR IV PRN ×2 (07:52→18:00)
[2017-04-10] MEDS: RANITIDINE HCL 150 MG TAB PO SCH ×2 (07:53→21:57)
[2017-04-10] MEDS: MULTIVITAMIN TAB PO SCH (07:53)
[2017-04-10] MEDS: PANTOprazole SOD 40 MG TAB PO SCH ×2 (07:53→21:56)
[2017-04-10] MEDS: IPRATROPIUM BROMIDE/ALBUTEROL respimat INH INH SCH ×4 (07:54→21:58)
[2017-04-10] MEDS: BRINZOLAMIDE (AZOPT) OPS 10 ML BTL OPB SCH ×2 (07:54→21:58)
[2017-04-10] MEDS: DILTIAZEM HCL 180 MG ER CAP PO SCH (07:54)
[2017-04-10] MEDS: ONDANSETRON INJ 2 MG/ML 2 ML VIAL IV PRN ×2 (08:21→21:58)
[2017-04-10] MEDS ORDERED: CIPROFLOXACIN / D5W 400 MG in PREMIXED IN D5W 200 ML IV SCH (09:00)
[2017-04-10 15:25] VITALS: BP 142/69; PULSE 71; TEMP 36.4; O2SAT 93
[2017-04-10 16:10] VITALS: O2SAT 98
[2017-04-10] MEDS: BIMATOPROST 0.01% OP SOLN 2.5 ML BTL OPB SCH (21:58)
[2017-04-10 23:11] VITALS: BP 119/66; PULSE 63; TEMP 36.9; O2SAT 97
[2017-04-11] MEDS: HYDROmorphone INJ 0.5 MG/0.5 ML SYR IV PRN (00:02)
[2017-04-11] MEDS: METRONIDAZOLE / NSS 500 MG in PREMIXED NSS 100 ML IV SCH ×3 (02:12→18:02)
[2017-04-11] MEDS: HYDROCODONE/ACETAMOPHEN 5/325MG TAB PO PRN ×4 (03:54→23:16)
[2017-04-11] MEDS: ONDANSETRON INJ 2 MG/ML 2 ML VIAL IV PRN ×3 (03:55→23:16)
--- NOTE | 2017-04-11 05:13 | Progress Note ---
Medicine Progress Note Date & Time of Visit: Apr 10, 2017 at 10:50 . Subjective No fever. No chest pain. Respiratory status stable. No nausea or vomiting. Persistent left-sided abdominal pain. Persistent hematochezia, but not as voluminous. . Objective Last 8 Hrs Date Time Temp Pulse Resp B/P (MAP) Pulse Ox O2 Delivery O2 Flow Rate FiO2 04/10/17 08:00 Room Air 04/10/17 07:38 36.9 59 16 108/52 (70) 97 Room Air Physical Exam: General- lying in bed, no distress Neck- no JVD Lungs- clear to auscultation Heart- RRR Abdomen- + BS, soft, nondistended, moderate left-sided tenderness without rebound or guarding Extremities- no pretibial edema or calf tenderness Neuro- alert, oriented . Laboratory Results: Last 24 Hours Test 04/09/17 16:04 04/09/17 18:27 04/09/17 20:12 04/10/17 05:19 Bedside Glucose 127 mg/dl 105 mg/dl Hemoglobin 10.9 g/dL 10.4 g/dL Hematocrit 35.4 % 32.3 % White Blood Count 14.02 K/uL Red Blood Count 3.62 M/uL Mean Corpuscular Volume 89.2 fL Mean Corpuscular Hemoglobin 28.7 pg Mean Corpuscular Hemoglobin Concent 32.2 g/dl Platelet Count 271 K/uL Mean Platelet Volume 9.2 fL Neutrophils (%) (Auto) 61.6 % Lymphocytes (%) (Auto) 23.1 % Monocytes (%) (Auto) 11.8 % Eosinophils (%) (Auto) 3.3 % Basophils (%) (Auto) 0.1 % Neutrophils # (Auto) 8.62 K/uL Lymphocytes # (Auto) 3.24 K/uL Monocytes # (Auto) 1.66 K/uL Eosinophils # (Auto) 0.46 K/uL Basophils # (Auto) 0.02 K/uL RDW Standard Deviation 45.9 fL RDW Coefficient of Variation 13.9 % Immature Granulocyte % (Auto) 0.1 % Immature Granulocyte # (Auto) 0.02 K/uL Ovalocytes 1+ Sodium Level 143 mmol/L Potassium Level 3.6 mmol/L Chloride Level 109 mmol/L Carbon Dioxide Level 29 mmol/L Anion Gap 5.0 mmol/L Blood Urea Nitrogen 7 mg/dl Creatinine 0.83 mg/dl Est Creatinine Clear Calc Drug Dose 67.2 ml/min Estimated GFR () 78.3 Estimated GFR (Non- 67.5 BUN/Creatinine Ratio 8.8 Random Glucose 123 mg/dl Calcium Level 8.9 mg/dl Test 04/10/17 07:43 04/10/17 11:51 Bedside Glucose 117 mg/dl 77 mg/dl Date/Time Source Procedure Growth Status 04/09/17 16:52 Stool Shiga Toxin Test - Preliminary No E. Coli shiga toxin 1 or shiga tox... Resulted 04/09/17 16:52 Stool Stool Culture - Preliminary NO SALMONELLA ISOLATED TO DATE,... Resulted 04/09/17 16:52 Stool C.difficile Toxin B Gene (PCR) - Final No C. difficile toxin B gene detected Complete Assessment & Plan ABDOMINAL PAIN / LOWER GI BLEED Hemoglobin at time of admission was 12.8. Hemoglobin this morning = 11.4. History of diverticulosis and previous diverticular bleed. CT demonstrated moderate thickening of the wall of the descending colon with associated pericolonic infiltration. Consider ischemic colitis, infectious colitis, other etiologies. C diff negative. Stool culture negative so far. Continue IV metronidazole and ceftriaxone. GI consulted. ACUTE BLOOD LOSS ANEMIA Hgb 12.8 --> 10.4. Acute blood loss anemia secondary to lower GI bleed. No need for transfusion at this time. Follow. HYPERTENSION Continue diltiazem and terazosin with hold parameters. Follow and titrate Rx. ASTHMA / COPD Stable. Continue usual meds. DM TYPE II Hold oral agents in light of hospitalization and acute illness. Check hemoglobin A1c. FBS today = 117. Insulin coverage PRN. VTE PROPHYLAXIS No anticoagulants in light of GI bleed. SCD's. Ambulate. DISPOSITION Expected discharge to home. Internal Medicine follow-up with Dr. Marcela Pinto. . Current Inpatient Medications: Current Inpatient Medications Medications (Trade) Dose Ordered Sig/Robson Route Start Time Stop Time Status Last Admin Dose Admin Acetaminophen (Tylenol Tab) 650 mg Q4H PRN PO 04/09/17 01:15 05/09/17 01:14 Insulin Aspart (novoLOG ASPART) SLIDING SCALE If C... ACHS SC 04/09/17 06:30 05/09/17 06:59 Glucose (Glucose 40% Gel) 15-30 GRAMS 15 GRAMS... UD PRN PO 04/09/17 01:15 05/09/17 01:14 Glucose (Glucose Chew Tab) 4-8 Tablets 4 Tabl... UD PRN PO 04/09/17 01:15 05/09/17 01:14 Dextrose (Dextrose 50% 50ML Syringe) 25-50ML OF 50% DW IV FOR... UD PRN IV 04/09/17 01:15 05/09/17 01:14 Glucagon (Glucagon Inj) 1 mg UD PRN SQ 04/09/17 01:15 05/09/17 01:14 Brinzolamide (Azopt) 1 drops BID OPB 04/09/17 09:00 05/09/17 08:59 04/10/17 07:54 1 DROPS Acetaminophen/ Hydrocodone Bitart ([place] 5/325 Tab) 1 tab Q6H PRN PO 04/09/17 01:15 04/23/17 01:14 04/10/17 13:21 1 TAB Albuterol/ Ipratropium (Combivent Respimat Inh) 1 puffs QID INH 04/09/17 09:00 05/09/17 08:59 04/10/17 13:21 1 PUFFS Multivitamins (Multivitamin Tab) 1 tab QAM PO 04/09/17 09:00 05/09/17 08:59 04/10/17 07:53 1 TAB Ranitidine HCl (zANTac TAB) 150 mg BID PO 04/09/17 09:00 05/09/17 08:59 04/10/17 07:53 150 MG Tramadol HCl (Ultram Tab) 50 mg Q6H PRN PO 04/09/17 01:15 05/09/17 01:14 04/09/17 02:00 50 MG Bimatoprost (Lumigan 0.01%) 1 drops HS OPB 04/09/17 21:00 05/09/17 20:59 04/09/17 20:54 1 DROPS Pantoprazole Sodium (Protonix Tab) 40 mg BID PO 04/09/17 09:00 05/09/17 08:59 04/10/17 07:53 40 MG Lactobacillus Acidophilus (Floranex Tab) 1 tab QID PO 04/09/17 09:00 05/09/17 08:59 6/29/17 13:21 1 TAB Diltiazem HCl (Dilacor Xr Cap) 360 mg QAM PO 04/09/17 09:00 05/09/17 08:59 04/10/17 07:54 360 MG Ondansetron HCl (Zofran Inj) 4 mg Q6H PRN IV 04/09/17 01:15 05/09/17 01:14 04/10/17 08:21 4 MG Hydromorphone HCl (Dilaudid Inj) 0.5 mg Q3H PRN IV 04/09/17 01:15 04/23/17 01:14 04/10/17 07:52 0.5 MG Miscellaneous Information (Order Awaiting Action) 1 ea QS N/A 04/09/17 08:00 05/09/17 07:59 Terazosin HCl (Hytrin Cap) 2 mg HS PO 04/09/17 21:00 05/09/17 08:59 04/09/17 20:57 2 MG Ondansetron HCl (Zofran Inj) 4 mg Q6H PRN IV 04/09/17 22:45 05/09/17 22:44 Metronidazole 500 mg/Prmx 100 ml @ 100 mls/hr Q8H IV 04/10/17 02:00 04/18/17 01:59 04/10/17 10:06 100 MLS/HR Ceftriaxone Sodium 1 gm/ Dextrose 50 ml @ 100 mls/hr DAILY@2300 IV 04/10/17 01:30 04/20/17 01:29 04/10/17 01:22 100 MLS/HR
[2017-04-11 06:59] LABS: BASO % 0.2 %; BASO ABS # 0.03 K/uL (0-0.2); COMPLETE YES; HEMATOCRIT 32.6 % (37-47); IG% 0.2 %; LYMPH % 27.5 %; LYMPH ABS # 3.52 K/uL (1.2-3.4); MEAN CELL VOLUME 89.8 fL (80-100); MEAN CORPUSCULAR HEMOGLOBIN 28.1 pg (25-34); MEAN CORPUSCULAR HGB CONC 31.3 g/dl (32-36); MEAN PLATELET VOLUME 9.3 fL (7.4-10.4); MONO % 10.2 %; NEUT % 56.9 %; PLATELET COUNT 291 K/uL (130-400); RED BLOOD COUNT 3.63 M/uL (4.2-5.4); WHITE BLOOD COUNT 12.79 K/uL (4.8-10.8)
[2017-04-11 07:22] VITALS: BP 121/67; PULSE 55; TEMP 36.6; O2SAT 99
[2017-04-11 07:39] LABS: BUN/CREATININE RATIO 8.4 (10-20); CALCIUM 9.2 mg/dl (8.5-10.1); CREATININE 0.9 mg/dl (0.60-1.20); POTASSIUM 3.7 mmol/L (3.5-5.1)
[2017-04-11] MEDS: INSULIN ASPART 100 UNITS/ML 3 ML PEN SC SCH ×4 (07:42→21:00)
[2017-04-11] MEDS: BRINZOLAMIDE (AZOPT) OPS 10 ML BTL OPB SCH ×2 (07:55→21:53)
[2017-04-11] MEDS: LACTOBACILLUS ACIDOPHILUS (FLORANEX) TAB PO SCH ×4 (07:55→21:52)
[2017-04-11] MEDS: IPRATROPIUM BROMIDE/ALBUTEROL respimat INH INH SCH ×4 (07:55→21:52)
[2017-04-11] MEDS: DILTIAZEM HCL 180 MG ER CAP PO SCH (07:56)
[2017-04-11] MEDS: PANTOprazole SOD 40 MG TAB PO SCH ×2 (07:56→21:54)
[2017-04-11] MEDS: RANITIDINE HCL 150 MG TAB PO SCH ×2 (07:56→21:54)
[2017-04-11] MEDS: MULTIVITAMIN TAB PO SCH (07:57)
[2017-04-11 08:00] VITALS: O2SAT 99
--- NOTE | 2017-04-11 09:50 | Gastroenterology Progress Note ---
Progress Note Date of Service: Apr 11, 2017 Subjective Pt evaluation today including: conversation w/ patient, physical exam, chart review, lab review No acute events overnight. C.Diff was negative. Culture negative. 3 small bloody BMs since she was evaluated yesterday. No black stools. Some clots. No change in pain with BM. She tells me her abdominal pain is about 50% resolved, still present in LLQ. She is tolerating a regular diet and ate her breakfast without any issue. She is on cipro/Flagyl. White count improving since admission. HGB 12.8 --> 10.2. She felt shaky this morning after ambulating to the bathroom - per pt her vitals and blood sugar were obtained and were all WNL. Denies any other symptoms. Review of Systems Constitutional: No fever, No chills Respiratory: No cough Cardiac: No chest pain Abdomen: + pain, + GI bleeding, No nausea, No vomiting, No diarrhea, No constipation Medications Current Inpatient Medications Medications (Trade) Dose Ordered Sig/Robson Route Start Time Stop Time Status Last Admin Dose Admin Acetaminophen (Tylenol Tab) 650 mg Q4H PRN PO 04/09/17 01:15 05/09/17 01:14 Insulin Aspart (novoLOG ASPART) SLIDING SCALE If C... ACHS SC 04/09/17 06:30 05/09/17 06:59 Glucose (Glucose 40% Gel) 15-30 GRAMS 15 GRAMS... UD PRN PO 04/09/17 01:15 05/09/17 01:14 Glucose (Glucose Chew Tab) 4-8 Tablets 4 Tabl... UD PRN PO 04/09/17 01:15 05/09/17 01:14 Dextrose (Dextrose 50% 50ML Syringe) 25-50ML OF 50% DW IV FOR... UD PRN IV 04/09/17 01:15 05/09/17 01:14 Glucagon (Glucagon Inj) 1 mg UD PRN SQ 04/09/17 01:15 05/09/17 01:14 Brinzolamide (Azopt) 1 drops BID OPB 04/09/17 09:00 05/09/17 08:59 04/11/17 07:55 1 DROPS Acetaminophen/ Hydrocodone Bitart ([place] 5/325 Tab) 1 tab Q6H PRN PO 04/09/17 01:15 04/23/17 01:14 04/11/17 03:54 1 TAB Albuterol/ Ipratropium (Combivent Respimat Inh) 1 puffs QID INH 04/09/17 09:00 05/09/17 08:59 04/11/17 07:55 1 PUFFS Multivitamins (Multivitamin Tab) 1 tab QAM PO 04/09/17 09:00 05/09/17 08:59 04/11/17 07:57 1 TAB Ranitidine HCl (zANTac TAB) 150 mg BID PO 04/09/17 09:00 05/09/17 08:59 04/11/17 07:56 150 MG Tramadol HCl (Ultram Tab) 50 mg Q6H PRN PO 04/09/17 01:15 05/09/17 01:14 04/09/17 02:00 50 MG Bimatoprost (Lumigan 0.01%) 1 drops HS OPB 04/09/17 21:00 05/09/17 20:59 04/10/17 21:58 1 DROPS Pantoprazole Sodium (Protonix Tab) 40 mg BID PO 04/09/17 09:00 05/09/17 08:59 04/11/17 07:56 40 MG Lactobacillus Acidophilus (Floranex Tab) 1 tab QID PO 04/09/17 09:00 05/09/17 08:59 04/11/17 07:55 1 TAB Diltiazem HCl (Dilacor Xr Cap) 360 mg QAM PO 04/09/17 09:00 05/09/17 08:59 04/11/17 07:56 360 MG Ondansetron HCl (Zofran Inj) 4 mg Q6H PRN IV 04/09/17 01:15 05/09/17 01:14 04/11/17 03:55 4 MG Hydromorphone HCl (Dilaudid Inj) 0.5 mg Q3H PRN IV 04/09/17 01:15 04/23/17 01:14 04/11/17 00:02 0.5 MG Miscellaneous Information (Order Awaiting Action) 1 ea QS N/A 04/09/17 08:00 05/09/17 07:59 Terazosin HCl (Hytrin Cap) 2 mg HS PO 04/09/17 21:00 05/09/17 08:59 04/10/17 21:57 2 MG Ondansetron HCl (Zofran Inj) 4 mg Q6H PRN IV 04/09/17 22:45 05/09/17 22:44 Metronidazole 500 mg/Prmx 100 ml @ 100 mls/hr Q8H IV 04/10/17 02:00 04/18/17 01:59 04/11/17 02:12 100 MLS/HR Ceftriaxone Sodium 1 gm/ Dextrose 50 ml @ 100 mls/hr DAILY@2300 IV 04/10/17 01:30 04/20/17 01:29 04/10/17 21:55 100 MLS/HR Objective Vital Signs Date Time Temp Pulse Resp B/P (MAP) Pulse Ox O2 Delivery O2 Flow Rate FiO2 04/11/17 08:00 99 Nasal Cannula 4.0 04/11/17 07:22 36.6 55 20 121/67 (85) 99 Nasal Cannula 4.0 04/11/17 00:00 Nasal Cannula 4.0 04/10/17 23:11 36.9 63 16 119/66 (83) 97 4.0 04/10/17 16:10 98 Room Air 04/10/17 15:25 36.4 71 18 142/69 (93) 93 Room Air Physical Exam General Appearance: no apparent distress (pt is on phone wiht family member before my evaluation) Eyes: PERRL ENT: hearing grossly normal Neck: supple Respiratory/Chest: lungs clear Cardiovascular: regular rate, rhythm Abdomen: normal bowel sounds, soft, no organomegaly, + tenderness (LLQ) Neurologic/Psych: alert, normal mood/affect, oriented x 3 Skin: normal color Laboratory Results Last 24 Hours Test 04/10/17 11:51 04/10/17 16:00 04/10/17 20:33 04/11/17 06:13 Bedside Glucose 77 mg/dl 102 mg/dl 123 mg/dl White Blood Count 12.79 K/uL Red Blood Count 3.63 M/uL Hemoglobin 10.2 g/dL Hematocrit 32.6 % Mean Corpuscular Volume 89.8 fL Mean Corpuscular Hemoglobin 28.1 pg Mean Corpuscular Hemoglobin Concent 31.3 g/dl Platelet Count 291 K/uL Mean Platelet Volume 9.3 fL Neutrophils (%) (Auto) 56.9 % Lymphocytes (%) (Auto) 27.5 % Monocytes (%) (Auto) 10.2 % Eosinophils (%) (Auto) 5.0 % Basophils (%) (Auto) 0.2 % Neutrophils # (Auto) 7.26 K/uL Lymphocytes # (Auto) 3.52 K/uL Monocytes # (Auto) 1.31 K/uL Eosinophils # (Auto) 0.64 K/uL Basophils # (Auto) 0.03 K/uL RDW Standard Deviation 45.9 fL RDW Coefficient of Variation 14.0 % Immature Granulocyte % (Auto) 0.2 % Immature Granulocyte # (Auto) 0.03 K/uL Sodium Level 145 mmol/L Potassium Level 3.7 mmol/L Chloride Level 110 mmol/L Carbon Dioxide Level 32 mmol/L Anion Gap 3.0 mmol/L Blood Urea Nitrogen 8 mg/dl Creatinine 0.90 mg/dl Est Creatinine Clear Calc Drug Dose 62.0 ml/min Estimated GFR () 71.0 Estimated GFR (Non- 61.2 BUN/Creatinine Ratio 8.4 Random Glucose 105 mg/dl Calcium Level 9.2 mg/dl Test 04/11/17 07:25 04/11/17 09:33 Bedside Glucose 104 mg/dl 115 mg/dl Assessment and Plan Patient is a 76 year old female with IBS-C and history of LGI bleed who presented through the ED with abrupt onset abdominal pain (constant, generalized but worse in bilateral lower quadrants, does not radiate, associated with nausea) followed by new onset BRBPR. CT with moderate wall thickening of the descending colon with mild pericolonic infiltration suspicious for ischemic colitis. Will need to rule out infectious source of GI blood loss as WBC was 19 on admission. Presently on Cipro/Flagyl. This AM her abdominal pain is localized to suprapubic and LLQ. Symptoms about 50% resolved since admission. She has had three small bloody BMs since evaluation yesterday. Stool Culture negative, C.diff negative Monitor stools Trend H&H Transfuse as needed Continue ABX - known diverticulosis PPI BID Antiemetics PRN Pain medications PRN Outpatient colonoscopy Please call with any questions or concerns. ATTESTATION: I have performed a history and physical examination of this patient and reviewed the electronic record. Specifically, on physical examination there is persistent abdominal tenderness. In view of the slow improvement, would recommend MRA or CTA Friday if symptoms are not significantly improved. I have discussed the case with NIECY Mullins. The above note reflects my findings, conclusions, and recommendations. Mushtaq Roca MD
[2017-04-11 16:06] VITALS: BP 158/76; PULSE 68; TEMP 36.9; O2SAT 90
[2017-04-11 20:05] VITALS: O2SAT 99
[2017-04-11] MEDS: BIMATOPROST 0.01% OP SOLN 2.5 ML BTL OPB SCH (21:53)
--- NOTE | 2017-04-11 22:52 | Progress Note ---
Medicine Progress Note Date & Time of Visit: Apr 11, 2017 at 15:05 . Subjective No fever. No chest pain. Poor status at baseline with occasional wheezing. Intermittent nausea, no emesis. Left-sided abdominal pain improved. Intermittent hematochezia. No urinary symptoms. . Objective Last 8 Hrs Date Time Temp Pulse Resp B/P (MAP) Pulse Ox O2 Delivery O2 Flow Rate FiO2 04/11/17 16:06 36.9 68 18 158/76 (103) 90 Room Air Physical Exam: General- lying in bed, no distress Neck- no JVD Lungs- clear to auscultation Heart- RRR Abdomen- + BS, soft, nondistended, mild left-sided tenderness without rebound or guarding Extremities- no pretibial edema or calf tenderness Neuro- alert, oriented . Laboratory Results: Last 24 Hours Test 04/10/17 20:33 04/11/17 06:13 04/11/17 07:25 04/11/17 09:33 Bedside Glucose 123 mg/dl 104 mg/dl 115 mg/dl White Blood Count 12.79 K/uL Red Blood Count 3.63 M/uL Hemoglobin 10.2 g/dL Hematocrit 32.6 % Mean Corpuscular Volume 89.8 fL Mean Corpuscular Hemoglobin 28.1 pg Mean Corpuscular Hemoglobin Concent 31.3 g/dl Platelet Count 291 K/uL Mean Platelet Volume 9.3 fL Neutrophils (%) (Auto) 56.9 % Lymphocytes (%) (Auto) 27.5 % Monocytes (%) (Auto) 10.2 % Eosinophils (%) (Auto) 5.0 % Basophils (%) (Auto) 0.2 % Neutrophils # (Auto) 7.26 K/uL Lymphocytes # (Auto) 3.52 K/uL Monocytes # (Auto) 1.31 K/uL Eosinophils # (Auto) 0.64 K/uL Basophils # (Auto) 0.03 K/uL RDW Standard Deviation 45.9 fL RDW Coefficient of Variation 14.0 % Immature Granulocyte % (Auto) 0.2 % Immature Granulocyte # (Auto) 0.03 K/uL Sodium Level 145 mmol/L Potassium Level 3.7 mmol/L Chloride Level 110 mmol/L Carbon Dioxide Level 32 mmol/L Anion Gap 3.0 mmol/L Blood Urea Nitrogen 8 mg/dl Creatinine 0.90 mg/dl Est Creatinine Clear Calc Drug Dose 62.0 ml/min Estimated GFR () 71.0 Estimated GFR (Non- 61.2 BUN/Creatinine Ratio 8.4 Random Glucose 105 mg/dl Calcium Level 9.2 mg/dl Test 04/11/17 11:21 04/11/17 16:25 Bedside Glucose 92 mg/dl 95 mg/dl Assessment & Plan ABDOMINAL PAIN / LOWER GI BLEED Hemoglobin at time of admission was 12.8. History of diverticulosis and previous diverticular bleed. CT demonstrated moderate thickening of the wall of the descending colon with associated pericolonic infiltration. Consider ischemic colitis, infectious colitis, other etiologies. C diff negative. Stool culture negative so far. Continue IV metronidazole and ceftriaxone. GI consulted. ACUTE BLOOD LOSS ANEMIA Hgb 12.8 --> --> 10.2. Acute blood loss anemia secondary to lower GI bleed. No need for transfusion at this time. Follow. HYPERTENSION Continue diltiazem and terazosin with hold parameters. Follow and titrate Rx. ASTHMA / COPD Stable. Continue usual meds. DM TYPE II Hold oral agents in light of hospitalization and acute illness. Check hemoglobin A1c. FBS today = 104. Insulin coverage PRN. VTE PROPHYLAXIS No anticoagulants in light of GI bleed. SCD's. Ambulate. DISPOSITION Expected discharge to home. Internal Medicine follow-up with Dr. Marcela Pinto. . Consultants: GI . Procedures: CT abdomen and pelvis IV fluids IV medications . Current Inpatient Medications: Current Inpatient Medications Medications (Trade) Dose Ordered Sig/Robson Route Start Time Stop Time Status Last Admin Dose Admin Acetaminophen (Tylenol Tab) 650 mg Q4H PRN PO 04/09/17 01:15 05/09/17 01:14 Insulin Aspart (novoLOG ASPART) SLIDING SCALE If C... ACHS SC 04/09/17 06:30 05/09/17 06:59 Glucose (Glucose 40% Gel) 15-30 GRAMS 15 GRAMS... UD PRN PO 04/09/17 01:15 05/09/17 01:14 Glucose (Glucose Chew Tab) 4-8 Tablets 4 Tabl... UD PRN PO 04/09/17 01:15 05/09/17 01:14 Dextrose (Dextrose 50% 50ML Syringe) 25-50ML OF 50% DW IV FOR... UD PRN IV 04/09/17 01:15 05/09/17 01:14 Glucagon (Glucagon Inj) 1 mg UD PRN SQ 04/09/17 01:15 05/09/17 01:14 Brinzolamide (Azopt) 1 drops BID OPB 04/09/17 09:00 05/09/17 08:59 04/11/17 07:55 1 DROPS Acetaminophen/ Hydrocodone Bitart ([place] 5/325 Tab) 1 tab Q6H PRN PO 04/09/17 01:15 04/23/17 01:14 04/11/17 16:44 1 TAB Albuterol/ Ipratropium (Combivent Respimat Inh) 1 puffs QID INH 04/09/17 09:00 05/09/17 08:59 04/11/17 16:44 1 PUFFS Multivitamins (Multivitamin Tab) 1 tab QAM PO 04/09/17 09:00 05/09/17 08:59 04/11/17 07:57 1 TAB Ranitidine HCl (zANTac TAB) 150 mg BID PO 04/09/17 09:00 05/09/17 08:59 04/11/17 07:56 150 MG Tramadol HCl (Ultram Tab) 50 mg Q6H PRN PO 04/09/17 01:15 05/09/17 01:14 04/09/17 02:00 50 MG Bimatoprost (Lumigan 0.01%) 1 drops HS OPB 04/09/17 21:00 05/09/17 20:59 04/10/17 21:58 1 DROPS Pantoprazole Sodium (Protonix Tab) 40 mg BID PO 04/09/17 09:00 05/09/17 08:59 04/11/17 07:56 40 MG Lactobacillus Acidophilus (Floranex Tab) 1 tab QID PO 04/09/17 09:00 05/09/17 08:59 04/11/17 16:44 1 TAB Diltiazem HCl (Dilacor Xr Cap) 360 mg QAM PO 04/09/17 09:00 05/09/17 08:59 04/11/17 07:56 360 MG Ondansetron HCl (Zofran Inj) 4 mg Q6H PRN IV 04/09/17 01:15 05/09/17 01:14 04/11/17 10:48 4 MG Hydromorphone HCl (Dilaudid Inj) 0.5 mg Q3H PRN IV 04/09/17 01:15 04/23/17 01:14 04/11/17 00:02 0.5 MG Miscellaneous Information (Order Awaiting Action) 1 ea QS N/A 04/09/17 08:00 05/09/17 07:59 Terazosin HCl (Hytrin Cap) 2 mg HS PO 04/09/17 21:00 05/09/17 08:59 04/10/17 21:57 2 MG Ondansetron HCl (Zofran Inj) 4 mg Q6H PRN IV 04/09/17 22:45 05/09/17 22:44 Metronidazole 500 mg/Prmx 100 ml @ 100 mls/hr Q8H IV 04/10/17 02:00 04/18/17 01:59 04/11/17 18:02 100 MLS/HR Ceftriaxone Sodium 1 gm/ Dextrose 50 ml @ 100 mls/hr DAILY@2300 IV 04/10/17 01:30 04/20/17 01:29 04/10/17 21:55 100 MLS/HR
[2017-04-11] MEDS: CEFTRIAXONE SOD INJ 1 GM in DEXTROSE 5% ADD-VANTAGE 50ML 50 ML IV SCH (23:17)
[2017-04-11 23:50] VITALS: BP 123/63; PULSE 72; TEMP 36.4; O2SAT 98
[2017-04-12] VITALS (8 sets, daily range): BP systolic 118–164; BP diastolic 61–80; PULSE 55–92; TEMP 36.6–36.9; O2SAT 97–99
[2017-04-12] MEDS: METRONIDAZOLE / NSS 500 MG in PREMIXED NSS 100 ML IV SCH ×3 (02:00→17:46)
[2017-04-12] MEDS: HYDROmorphone INJ 0.5 MG/0.5 ML SYR IV PRN ×3 (02:36→18:01)
[2017-04-12] MEDS ORDERED: DILTIAZEM HCL 180 MG ER CAP PO ONE (02:46)
--- NOTE | 2017-04-12 02:47 | Progress Note ---
Internal Med Progress Note Date of Service: Apr 12, 2017. Vital Signs: Date Time Temp Pulse Resp B/P (MAP) Pulse Ox O2 Delivery O2 Flow Rate FiO2 04/12/17 07:22 36.9 92 18 124/75 (91) 97 Nasal Cannula 4.0 04/12/17 03:44 64 132/71 (91) 04/12/17 03:12 36.8 60 18 118/61 (80) 98 Nasal Cannula 4.0 04/12/17 00:05 99 Nasal Cannula 4.0 04/11/17 23:50 36.4 72 20 123/63 (83) 98 Nasal Cannula 4.0 04/11/17 20:05 99 Nasal Cannula 4.0 04/11/17 16:06 36.9 68 18 158/76 (103) 90 Room Air 04/11/17 08:00 99 Nasal Cannula 4.0 Lab Results: Results Past 24 Hours Test 04/11/17 09:33 04/11/17 11:21 04/11/17 16:25 04/11/17 20:36 Range/Units Bedside Glucose 115 92 95 115 70-90 mg/dl Test 04/12/17 02:03 04/12/17 02:43 04/12/17 07:20 Range/Units Bedside Glucose 111 128 70-90 mg/dl White Blood Count 11.25 4.8-10.8 K/uL Red Blood Count 3.82 4.2-5.4 M/uL Hemoglobin 10.8 12.0-16.0 g/dL Hematocrit 33.8 37-47 % Mean Corpuscular Volume 88.5 80-100 fL Mean Corpuscular Hemoglobin 28.3 25-34 pg Mean Corpuscular Hemoglobin Concent 32.0 32-36 g/dl Platelet Count 292 130-400 K/uL Mean Platelet Volume 9.3 7.4-10.4 fL Neutrophils (%) (Auto) 47.5 % Lymphocytes (%) (Auto) 38.0 % Monocytes (%) (Auto) 9.2 % Eosinophils (%) (Auto) 4.9 % Basophils (%) (Auto) 0.3 % Neutrophils # (Auto) 5.34 1.4-6.5 K/uL Lymphocytes # (Auto) 4.28 1.2-3.4 K/uL Monocytes # (Auto) 1.04 0.11-0.59 K/uL Eosinophils # (Auto) 0.55 0-0.5 K/uL Basophils # (Auto) 0.03 0-0.2 K/uL RDW Standard Deviation 45.0 36.4-46.3 fL RDW Coefficient of Variation 13.8 11.5-14.5 % Immature Granulocyte % (Auto) 0.1 % Immature Granulocyte # (Auto) 0.01 0.00-0.02 K/uL Sodium Level 145 136-145 mmol/L Potassium Level 3.4 3.5-5.1 mmol/L Chloride Level 112 98-107 mmol/L Carbon Dioxide Level 27 21-32 mmol/L Anion Gap 6.0 3-11 mmol/L Blood Urea Nitrogen 5 7-18 mg/dl Creatinine 0.80 0.60-1.20 mg/dl Est Creatinine Clear Calc Drug Dose 69.8 ml/min Estimated GFR () 81.8 Estimated GFR (Non- 70.6 BUN/Creatinine Ratio 6.3 10-20 Random Glucose 112 70-99 mg/dl Calcium Level 9.0 8.5-10.1 mg/dl Magnesium Level 1.8 1.8-2.4 mg/dl Total Bilirubin 0.3 0.2-1 mg/dl Aspartate Amino Transf (AST/SGOT) 11 15-37 U/L Alanine Aminotransferase (ALT/SGPT) 14 12-78 U/L Alkaline Phosphatase 97 45-117 U/L Total Protein 6.6 6.4-8.2 gm/dl Albumin 3.1 3.4-5.0 gm/dl Globulin 3.5 2.5-4.0 gm/dl Albumin/Globulin Ratio 0.9 0.9-2 Thyroid Stimulating Hormone (TSH) 0.463 0.300-4.500 uIu/ml
[2017-04-12 02:54] LABS: BASO % 0.3 %; BASO ABS # 0.03 K/uL (0-0.2); COMPLETE YES; EOS % 4.9 %; HEMATOCRIT 33.8 % (37-47); IG% 0.1 %; LYMPH ABS # 4.28 K/uL (1.2-3.4); MEAN CELL VOLUME 88.5 fL (80-100); MEAN CORPUSCULAR HEMOGLOBIN 28.3 pg (25-34); MEAN PLATELET VOLUME 9.3 fL (7.4-10.4); MONO % 9.2 %; NEUT % 47.5 %; PLATELET COUNT 292 K/uL (130-400); RED BLOOD COUNT 3.82 M/uL (4.2-5.4); WHITE BLOOD COUNT 11.25 K/uL (4.8-10.8)
[2017-04-12 03:14] LABS: BUN/CREATININE RATIO 6.3 (10-20); CREATININE 0.8 mg/dl (0.60-1.20); MAGNESIUM 1.8 mg/dl (1.8-2.4); POTASSIUM 3.4 mmol/L (3.5-5.1)
[2017-04-12 03:27] LABS: ALB/GLOB RATIO 0.9 (0.9-2); THYROID STIMULATING HORMONE 0.463 uIu/ml (0.300-4.500)
[2017-04-12] MEDS ORDERED: MAGNESIUM SULFATE 1GM / D5W 1 GM in PREMIXED IN D5W 100 ML IV ONE (03:45)
[2017-04-12] MEDS ORDERED: POTASSIUM CHLORIDE 20 MEQ TABCR PO ONE (04:00)
[2017-04-12] MEDS: INSULIN ASPART 100 UNITS/ML 3 ML PEN SC SCH ×4 (06:30→20:53)
[2017-04-12] MEDS: PANTOprazole SOD 40 MG TAB PO SCH ×2 (08:04→20:49)
[2017-04-12] MEDS: HYDROCODONE/ACETAMOPHEN 5/325MG TAB PO PRN (08:04)
[2017-04-12] MEDS: BRINZOLAMIDE (AZOPT) OPS 10 ML BTL OPB SCH ×2 (08:05→20:46)
[2017-04-12] MEDS: LEValbuterol HFA 15GM INHALER INH SCH ×4 (08:05→20:50)
[2017-04-12] MEDS: IPRATROPIUM BROMIDE HFA INHALER INH SCH ×4 (08:06→20:51)
[2017-04-12] MEDS: LACTOBACILLUS ACIDOPHILUS (FLORANEX) TAB PO SCH ×4 (08:06→20:48)
[2017-04-12] MEDS: MULTIVITAMIN TAB PO SCH (08:07)
[2017-04-12] MEDS: RANITIDINE HCL 150 MG TAB PO SCH ×2 (08:07→20:49)
[2017-04-12] MEDS: ONDANSETRON INJ 2 MG/ML 2 ML VIAL IV PRN ×2 (10:09→16:33)
[2017-04-12] MEDS ORDERED: LORAZEPAM 2 MG/ML 1 ML VIAL ONE (13:06)
[2017-04-12] MEDS: BIMATOPROST 0.01% OP SOLN 2.5 ML BTL OPB SCH (20:46)
[2017-04-12] MEDS: LORAZEPAM INJ 0.5 MG in SYRINGE 0.25 ML IV PRN (20:54)
[2017-04-12] MEDS: PROMETHAZINE HCL INJ 12.5 MG in SODIUM CHLORIDE 0.9% 50ML 50 ML IV PRN (20:54)
[2017-04-12] MEDS: CEFTRIAXONE SOD INJ 1 GM in DEXTROSE 5% ADD-VANTAGE 50ML 50 ML IV SCH (22:48)
--- NOTE | 2017-04-12 22:49 | Progress Note ---
Medicine Progress Note Date & Time of Visit: Apr 12, 2017 . Subjective Episode of palpitations last night. EKG demonstrated NSR. No fever. No chest pain. No cough. Intermittent mild SOB, similar to baseline asthma symptoms. Intermittent nausea. Intermittent left-sided abdominal pain. Still having hematochezia, but only small volumes. . Objective Last 8 Hrs Date Time Temp Pulse Resp B/P (MAP) Pulse Ox O2 Delivery O2 Flow Rate FiO2 04/12/17 20:45 68 135/80 (98) 04/12/17 16:00 98 Room Air 04/12/17 15:06 36.8 55 18 164/72 (102) 98 Room Air Physical Exam: General- lying in bed, no distress Neck- no JVD Lungs- clear to auscultation Heart- RRR Abdomen- + BS, soft, nondistended, mild left-sided tenderness without rebound or guarding Extremities- no pretibial edema or calf tenderness Neuro- alert, oriented . Laboratory Results: Last 24 Hours Test 04/12/17 02:03 04/12/17 02:43 04/12/17 07:20 04/12/17 11:13 Bedside Glucose 111 mg/dl 128 mg/dl 100 mg/dl White Blood Count 11.25 K/uL Red Blood Count 3.82 M/uL Hemoglobin 10.8 g/dL Hematocrit 33.8 % Mean Corpuscular Volume 88.5 fL Mean Corpuscular Hemoglobin 28.3 pg Mean Corpuscular Hemoglobin Concent 32.0 g/dl Platelet Count 292 K/uL Mean Platelet Volume 9.3 fL Neutrophils (%) (Auto) 47.5 % Lymphocytes (%) (Auto) 38.0 % Monocytes (%) (Auto) 9.2 % Eosinophils (%) (Auto) 4.9 % Basophils (%) (Auto) 0.3 % Neutrophils # (Auto) 5.34 K/uL Lymphocytes # (Auto) 4.28 K/uL Monocytes # (Auto) 1.04 K/uL Eosinophils # (Auto) 0.55 K/uL Basophils # (Auto) 0.03 K/uL RDW Standard Deviation 45.0 fL RDW Coefficient of Variation 13.8 % Immature Granulocyte % (Auto) 0.1 % Immature Granulocyte # (Auto) 0.01 K/uL Sodium Level 145 mmol/L Potassium Level 3.4 mmol/L Chloride Level 112 mmol/L Carbon Dioxide Level 27 mmol/L Anion Gap 6.0 mmol/L Blood Urea Nitrogen 5 mg/dl Creatinine 0.80 mg/dl Est Creatinine Clear Calc Drug Dose 69.8 ml/min Estimated GFR () 81.8 Estimated GFR (Non- 70.6 BUN/Creatinine Ratio 6.3 Random Glucose 112 mg/dl Calcium Level 9.0 mg/dl Magnesium Level 1.8 mg/dl Total Bilirubin 0.3 mg/dl Aspartate Amino Transf (AST/SGOT) 11 U/L Alanine Aminotransferase (ALT/SGPT) 14 U/L Alkaline Phosphatase 97 U/L Total Protein 6.6 gm/dl Albumin 3.1 gm/dl Globulin 3.5 gm/dl Albumin/Globulin Ratio 0.9 Thyroid Stimulating Hormone (TSH) 0.463 uIu/ml Test 04/12/17 16:32 04/12/17 20:45 Bedside Glucose 109 mg/dl 103 mg/dl Assessment & Plan ABDOMINAL PAIN / LOWER GI BLEED Hemoglobin at time of admission was 12.8. History of diverticulosis and previous diverticular bleed. CT demonstrated moderate thickening of the wall of the descending colon with associated pericolonic infiltration. Consider ischemic colitis, infectious colitis, other etiologies. GI consulted. Suspected ischemic colitis. C diff negative. Stool culture negative so far. WBC improving- today = 11,250. Continue IV metronidazole and ceftriaxone. ACUTE BLOOD LOSS ANEMIA Hgb 12.8 --> --> 10.2 --> 10.8. Acute blood loss anemia secondary to lower GI bleed. No need for transfusion at this time. Follow. HYPERTENSION Continue diltiazem and terazosin with hold parameters. Follow and titrate Rx. ASTHMA / COPD Stable. Continue usual meds. DM TYPE II Hold oral agents in light of hospitalization and acute illness. Check hemoglobin A1c. FBS today = 128. Insulin coverage PRN. VTE PROPHYLAXIS No anticoagulants in light of GI bleed. SCD's. Ambulate. DISPOSITION Expected discharge to home. Internal Medicine follow-up with Dr. Marcela Pinto. . Consultants: GI . Procedures: CT abdomen and pelvis IV fluids IV medications . Current Inpatient Medications: Current Inpatient Medications Medications (Trade) Dose Ordered Sig/Robson Route Start Time Stop Time Status Last Admin Dose Admin Acetaminophen (Tylenol Tab) 650 mg Q4H PRN PO 04/09/17 01:15 05/09/17 01:14 Insulin Aspart (novoLOG ASPART) SLIDING SCALE If C... ACHS SC 04/09/17 06:30 05/09/17 06:59 Glucose (Glucose 40% Gel) 15-30 GRAMS 15 GRAMS... UD PRN PO 04/09/17 01:15 05/09/17 01:14 Glucose (Glucose Chew Tab) 4-8 Tablets 4 Tabl... UD PRN PO 04/09/17 01:15 05/09/17 01:14 Dextrose (Dextrose 50% 50ML Syringe) 25-50ML OF 50% DW IV FOR... UD PRN IV 04/09/17 01:15 05/09/17 01:14 Glucagon (Glucagon Inj) 1 mg UD PRN SQ 04/09/17 01:15 05/09/17 01:14 Brinzolamide (Azopt) 1 drops BID OPB 04/09/17 09:00 05/09/17 08:59 04/12/17 20:46 1 DROPS Acetaminophen/ Hydrocodone Bitart ([place] 5/325 Tab) 1 tab Q6H PRN PO 04/09/17 01:15 04/23/17 01:14 04/12/17 08:04 1 TAB Multivitamins (Multivitamin Tab) 1 tab QAM PO 04/09/17 09:00 05/09/17 08:59 04/12/17 08:07 1 TAB Ranitidine HCl (zANTac TAB) 150 mg BID PO 04/09/17 09:00 05/09/17 08:59 04/12/17 20:49 150 MG Tramadol HCl (Ultram Tab) 50 mg Q6H PRN PO 04/09/17 01:15 05/09/17 01:14 04/09/17 02:00 50 MG Bimatoprost (Lumigan 0.01%) 1 drops HS OPB 04/09/17 21:00 05/09/17 20:59 04/12/17 20:46 1 DROPS Pantoprazole Sodium (Protonix Tab) 40 mg BID PO 04/09/17 09:00 05/09/17 08:59 04/12/17 20:49 40 MG Lactobacillus Acidophilus (Floranex Tab) 1 tab QID PO 04/09/17 09:00 05/09/17 08:59 04/12/17 20:48 1 TAB Ondansetron HCl (Zofran Inj) 4 mg Q6H PRN IV 04/09/17 01:15 05/09/17 01:14 04/12/17 16:33 4 MG Hydromorphone HCl (Dilaudid Inj) 0.5 mg Q3H PRN IV 04/09/17 01:15 04/23/17 01:14 04/12/17 18:01 0.5 MG Miscellaneous Information (Order Awaiting Action) 1 ea QS N/A 04/09/17 08:00 05/09/17 07:59 Terazosin HCl (Hytrin Cap) 2 mg HS PO 04/09/17 21:00 05/09/17 08:59 04/12/17 20:48 2 MG Metronidazole 500 mg/Prmx 100 ml @ 100 mls/hr Q8H IV 04/10/17 02:00 04/18/17 01:59 04/12/17 17:46 100 MLS/HR Ceftriaxone Sodium 1 gm/ Dextrose 50 ml @ 100 mls/hr DAILY@2300 IV 04/10/17 01:30 04/20/17 01:29 04/12/17 22:48 100 MLS/HR Promethazine HCl 12.5 mg/Sodium Chloride 50.5 ml @ 204 mls/hr Q6H PRN IV 04/12/17 02:30 05/12/17 02:29 04/12/17 20:54 204 MLS/HR Diltiazem HCl (Dilacor Xr Cap) 360 mg QAM PO 04/13/17 09:00 05/09/17 08:59 Ipratropium [place] (Atrovent Hfa Inhaler) 1 puffs QID INH 04/12/17 09:00 05/12/17 08:59 04/12/17 20:51 1 PUFFS Levalbuterol (Xopenex Hfa Inhaler) 1 puffs QID INH 04/12/17 09:00 05/12/17 08:59 04/12/17 20:50 1 PUFFS Lorazepam 0.5 mg/ Syringe 0.5 ml @ 0.5 mls/min Q6H PRN IV 04/12/17 12:00 05/12/17 11:59 04/12/17 20:54 0.5 MLS/MIN
[2017-04-13] MEDS: ONDANSETRON INJ 2 MG/ML 2 ML VIAL IV PRN ×2 (00:24→08:13)
[2017-04-13] MEDS: METRONIDAZOLE / NSS 500 MG in PREMIXED NSS 100 ML IV SCH ×3 (02:07→17:31)
[2017-04-13] MEDS: HYDROmorphone INJ 0.5 MG/0.5 ML SYR IV PRN ×4 (02:34→22:28)
[2017-04-13 05:53] LABS: BASO % 0.4 %; BASO ABS # 0.03 K/uL (0-0.2); COMPLETE YES; EOS % 9.1 %; HEMATOCRIT 31.5 % (37-47); IG% 0.1 %; LYMPH % 36.6 %; LYMPH ABS # 2.69 K/uL (1.2-3.4); MEAN CORPUSCULAR HEMOGLOBIN 28.2 pg (25-34); MEAN CORPUSCULAR HGB CONC 31.7 g/dl (32-36); MEAN PLATELET VOLUME 9.4 fL (7.4-10.4); MONO % 10.6 %; NEUT % 43.2 %; PLATELET COUNT 306 K/uL (130-400); RED BLOOD COUNT 3.54 M/uL (4.2-5.4); WHITE BLOOD COUNT 7.34 K/uL (4.8-10.8)
[2017-04-13 06:30] LABS: CALCIUM 8.6 mg/dl (8.5-10.1); CREATININE 0.73 mg/dl (0.60-1.20); MAGNESIUM 1.9 mg/dl (1.8-2.4); POTASSIUM 3.4 mmol/L (3.5-5.1)
[2017-04-13] MEDS: INSULIN ASPART 100 UNITS/ML 3 ML PEN SC SCH ×4 (06:30→20:49)
[2017-04-13 07:16] VITALS: BP 124/73; PULSE 82; TEMP 36.6; O2SAT 100
[2017-04-13] MEDS: BRINZOLAMIDE (AZOPT) OPS 10 ML BTL OPB SCH ×2 (08:08→20:47)
[2017-04-13] MEDS: LEValbuterol HFA 15GM INHALER INH SCH ×4 (08:08→20:46)
[2017-04-13] MEDS: IPRATROPIUM BROMIDE HFA INHALER INH SCH ×4 (08:08→20:47)
[2017-04-13] MEDS: PANTOprazole SOD 40 MG TAB PO SCH ×2 (08:09→20:48)
[2017-04-13] MEDS: MULTIVITAMIN TAB PO SCH (08:09)
[2017-04-13] MEDS: RANITIDINE HCL 150 MG TAB PO SCH ×2 (08:09→20:48)
[2017-04-13] MEDS: LACTOBACILLUS ACIDOPHILUS (FLORANEX) TAB PO SCH ×4 (08:09→20:48)
[2017-04-13] MEDS: DILTIAZEM HCL 180 MG ER CAP PO SCH (08:09)
[2017-04-13] MEDS: LORAZEPAM INJ 0.5 MG in SYRINGE 0.25 ML IV PRN ×2 (14:25→22:28)
[2017-04-13 15:16] VITALS: BP 122/66; PULSE 62; TEMP 37.1; O2SAT 92
[2017-04-13 16:00] VITALS: O2SAT 92
[2017-04-13] MEDS ORDERED: POTASSIUM CHLORIDE 20 MEQ TABCR PO ONE (16:15)
--- NOTE | 2017-04-13 19:14 | Progress Note ---
Medicine Progress Note Date & Time of Visit: Apr 13, 2017 at 15:55 . Subjective No fever. No cough or shortness of breath. No chest pain. No further palpitations. Less nausea, no emesis. Left-sided abdominal pain less severe. Now just passing small amounts of blood per rectum. . Objective Last 8 Hrs Date Time Temp Pulse Resp B/P (MAP) Pulse Ox O2 Delivery O2 Flow Rate FiO2 04/13/17 16:00 92 Room Air 04/13/17 15:16 37.1 62 16 122/66 (84) 92 Physical Exam: General- no distress Neck- no JVD Lungs- clear to auscultation Heart- RRR Abdomen- + BS, soft, nondistended, mild left-sided tenderness without rebound or guarding Extremities- no pretibial edema or calf tenderness Neuro- alert, oriented . Laboratory Results: Last 24 Hours Test 04/12/17 20:45 04/13/17 05:25 04/13/17 07:40 04/13/17 11:24 Bedside Glucose 103 mg/dl 104 mg/dl 89 mg/dl White Blood Count 7.34 K/uL Red Blood Count 3.54 M/uL Hemoglobin 10.0 g/dL Hematocrit 31.5 % Mean Corpuscular Volume 89.0 fL Mean Corpuscular Hemoglobin 28.2 pg Mean Corpuscular Hemoglobin Concent 31.7 g/dl Platelet Count 306 K/uL Mean Platelet Volume 9.4 fL Neutrophils (%) (Auto) 43.2 % Lymphocytes (%) (Auto) 36.6 % Monocytes (%) (Auto) 10.6 % Eosinophils (%) (Auto) 9.1 % Basophils (%) (Auto) 0.4 % Neutrophils # (Auto) 3.16 K/uL Lymphocytes # (Auto) 2.69 K/uL Monocytes # (Auto) 0.78 K/uL Eosinophils # (Auto) 0.67 K/uL Basophils # (Auto) 0.03 K/uL RDW Standard Deviation 46.2 fL RDW Coefficient of Variation 14.0 % Immature Granulocyte % (Auto) 0.1 % Immature Granulocyte # (Auto) 0.01 K/uL Sodium Level 147 mmol/L Potassium Level 3.4 mmol/L Chloride Level 112 mmol/L Carbon Dioxide Level 30 mmol/L Anion Gap 5.0 mmol/L Blood Urea Nitrogen 3 mg/dl Creatinine 0.73 mg/dl Est Creatinine Clear Calc Drug Dose 76.4 ml/min Estimated GFR () 91.4 Estimated GFR (Non- 78.9 BUN/Creatinine Ratio 4.0 Random Glucose 111 mg/dl Calcium Level 8.6 mg/dl Magnesium Level 1.9 mg/dl Test 04/13/17 16:40 Bedside Glucose 102 mg/dl Assessment & Plan ABDOMINAL PAIN / LOWER GI BLEED Hemoglobin at time of admission was 12.8. History of diverticulosis and previous diverticular bleed. CT demonstrated moderate thickening of the wall of the descending colon with associated pericolonic infiltration. Consider ischemic colitis, infectious colitis, other etiologies. GI consulted. Suspected ischemic colitis. C diff negative. Stool culture negative so far. WBC improving- today = 7340. Continue IV metronidazole and ceftriaxone. ACUTE BLOOD LOSS ANEMIA Hgb 12.8 --> --> 10.2 --> 10.0. Acute blood loss anemia secondary to lower GI bleed. No need for transfusion at this time. Follow. HYPERTENSION Continue diltiazem and terazosin with hold parameters. Follow and titrate Rx. ASTHMA / COPD Stable. Continue usual meds. DM TYPE II Hold oral agents in light of hospitalization and acute illness. Check hemoglobin A1c. FBS today = 104. Insulin coverage PRN. VTE PROPHYLAXIS No anticoagulants in light of GI bleed. SCD's. Ambulate. DISPOSITION Expected discharge to home. Internal Medicine follow-up with Dr. Marcela Pinto. . Consultants: GI . Procedures: CT abdomen and pelvis IV fluids IV medications . Current Inpatient Medications: Current Inpatient Medications Medications (Trade) Dose Ordered Sig/Robson Route Start Time Stop Time Status Last Admin Dose Admin Acetaminophen (Tylenol Tab) 650 mg Q4H PRN PO 04/09/17 01:15 05/09/17 01:14 Insulin Aspart (novoLOG ASPART) SLIDING SCALE If C... ACHS SC 04/09/17 06:30 05/09/17 06:59 Glucose (Glucose 40% Gel) 15-30 GRAMS 15 GRAMS... UD PRN PO 04/09/17 01:15 05/09/17 01:14 Glucose (Glucose Chew Tab) 4-8 Tablets 4 Tabl... UD PRN PO 04/09/17 01:15 05/09/17 01:14 Dextrose (Dextrose 50% 50ML Syringe) 25-50ML OF 50% DW IV FOR... UD PRN IV 04/09/17 01:15 05/09/17 01:14 Glucagon (Glucagon Inj) 1 mg UD PRN SQ 04/09/17 01:15 05/09/17 01:14 Brinzolamide (Azopt) 1 drops BID OPB 04/09/17 09:00 05/09/17 08:59 04/13/17 08:08 1 DROPS Acetaminophen/ Hydrocodone Bitart ([place] 5/325 Tab) 1 tab Q6H PRN PO 04/09/17 01:15 04/23/17 01:14 04/12/17 08:04 1 TAB Multivitamins (Multivitamin Tab) 1 tab QAM PO 04/09/17 09:00 05/09/17 08:59 04/13/17 08:09 1 TAB Ranitidine HCl (zANTac TAB) 150 mg BID PO 04/09/17 09:00 05/09/17 08:59 04/13/17 08:09 150 MG Tramadol HCl (Ultram Tab) 50 mg Q6H PRN PO 04/09/17 01:15 05/09/17 01:14 04/09/17 02:00 50 MG Bimatoprost ([place] 0.01%) 1 drops HS OPB 04/09/17 21:00 05/09/17 20:59 04/12/17 20:46 1 DROPS Pantoprazole Sodium (Protonix Tab) 40 mg BID PO 04/09/17 09:00 05/09/17 08:59 04/13/17 08:09 40 MG Lactobacillus Acidophilus (Floranex Tab) 1 tab QID PO 04/09/17 09:00 05/09/17 08:59 04/13/17 17:30 1 TAB Ondansetron HCl (Zofran Inj) 4 mg Q6H PRN IV 04/09/17 01:15 05/09/17 01:14 04/13/17 08:13 4 MG Hydromorphone HCl (Dilaudid Inj) 0.5 mg Q3H PRN IV 04/09/17 01:15 04/23/17 01:14 04/13/17 14:26 0.5 MG Miscellaneous Information (Order Awaiting Action) 1 ea QS N/A 04/09/17 08:00 05/09/17 07:59 Terazosin HCl (Hytrin Cap) 2 mg HS PO 04/09/17 21:00 05/09/17 08:59 04/12/17 20:48 2 MG Metronidazole 500 mg/Prmx 100 ml @ 100 mls/hr Q8H IV 04/10/17 02:00 04/18/17 01:59 04/13/17 17:31 100 MLS/HR Ceftriaxone Sodium 1 gm/ Dextrose 50 ml @ 100 mls/hr DAILY@2300 IV 04/10/17 01:30 04/20/17 01:29 04/12/17 22:48 100 MLS/HR Promethazine HCl 12.5 mg/Sodium Chloride 50.5 ml @ 204 mls/hr Q6H PRN IV 04/12/17 02:30 05/12/17 02:29 04/12/17 20:54 204 MLS/HR Diltiazem HCl (Dilacor Xr Cap) 360 mg QAM PO 04/13/17 09:00 05/09/17 08:59 04/13/17 08:09 360 MG Ipratropium [place] (Atrovent Hfa Inhaler) 1 puffs QID INH 04/12/17 09:00 05/12/17 08:59 04/13/17 17:31 1 PUFFS Levalbuterol (Xopenex Hfa Inhaler) 1 puffs QID INH 04/12/17 09:00 05/12/17 08:59 04/13/17 17:31 1 PUFFS Lorazepam 0.5 mg/ Syringe 0.5 ml @ 0.5 mls/min Q6H PRN IV 04/12/17 12:00 05/12/17 11:59 04/13/17 14:25 0.5 MLS/MIN
[2017-04-13 20:43] VITALS: BP 137/76; PULSE 63
[2017-04-13] MEDS: BIMATOPROST 0.01% OP SOLN 2.5 ML BTL OPB SCH (20:47)
[2017-04-13] MEDS: CEFTRIAXONE SOD INJ 1 GM in DEXTROSE 5% ADD-VANTAGE 50ML 50 ML IV SCH (22:27)
[2017-04-13 23:09] VITALS: BP 153/80; PULSE 89; TEMP 36.8; O2SAT 92
[2017-04-14] VITALS: O2SAT 92
[2017-04-14] MEDS: METRONIDAZOLE / NSS 500 MG in PREMIXED NSS 100 ML IV SCH ×3 (02:05→17:50)
[2017-04-14] MEDS: ONDANSETRON INJ 2 MG/ML 2 ML VIAL IV PRN ×2 (02:12→21:19)
[2017-04-14] MEDS: INSULIN ASPART 100 UNITS/ML 3 ML PEN SC SCH ×5 (06:30→22:00)
[2017-04-14 06:41] LABS: BASO % 0.5 %; BASO ABS # 0.04 K/uL (0-0.2); COMPLETE YES; EOS % 9.7 %; HEMATOCRIT 32.5 % (37-47); IG% 0.3 %; LYMPH % 39.7 %; LYMPH ABS # 3.14 K/uL (1.2-3.4); MEAN CORPUSCULAR HEMOGLOBIN 28.2 pg (25-34); MEAN CORPUSCULAR HGB CONC 31.7 g/dl (32-36); MEAN PLATELET VOLUME 9.3 fL (7.4-10.4); MONO % 13.5 %; NEUT % 36.3 %; PLATELET COUNT 311 K/uL (130-400); RED BLOOD COUNT 3.65 M/uL (4.2-5.4)
[2017-04-14 06:48] LABS: BUN/CREATININE RATIO 3.4 (10-20); CALCIUM 8.6 mg/dl (8.5-10.1); CREATININE 0.72 mg/dl (0.60-1.20); POTASSIUM 3.5 mmol/L (3.5-5.1)
[2017-04-14 07:40] VITALS: BP 109/68; PULSE 88; TEMP 36.5; O2SAT 97
[2017-04-14] MEDS: HYDROmorphone INJ 0.5 MG/0.5 ML SYR IV PRN ×3 (08:28→21:20)
[2017-04-14] MEDS: PROMETHAZINE HCL INJ 12.5 MG in SODIUM CHLORIDE 0.9% 50ML 50 ML IV PRN (08:28)
[2017-04-14] MEDS: IPRATROPIUM BROMIDE HFA INHALER INH SCH ×4 (08:28→21:24)
[2017-04-14] MEDS: PANTOprazole SOD 40 MG TAB PO SCH ×2 (08:29→21:28)
[2017-04-14] MEDS: LEValbuterol HFA 15GM INHALER INH SCH ×4 (08:29→21:24)
[2017-04-14] MEDS: RANITIDINE HCL 150 MG TAB PO SCH ×2 (08:29→21:27)
[2017-04-14] MEDS: BRINZOLAMIDE (AZOPT) OPS 10 ML BTL OPB SCH ×2 (08:29→21:25)
[2017-04-14] MEDS: LACTOBACILLUS ACIDOPHILUS (FLORANEX) TAB PO SCH ×4 (08:30→21:26)
[2017-04-14] MEDS: MULTIVITAMIN TAB PO SCH (08:30)
[2017-04-14] MEDS: DILTIAZEM HCL 180 MG ER CAP PO SCH (08:30)
[2017-04-14] MEDS: ZAFIRLUKAST 20 MG PO SCH (08:30)
--- NOTE | 2017-04-14 11:32 | Gastroenterology Progress Note ---
Progress Note Date of Service: Apr 14, 2017 Subjective Pt evaluation today including: conversation w/ patient, physical exam, chart review, lab review, review of studies, review of inpatient medication list Pt reports mild nausea w/o vomiting. Still having some L sided abd pain but improved. BM w scant rectal bleeding only when she wipes. She was going to try [place] diet (lactose free). Review of Systems Constitutional: No fever, No chills Respiratory: No cough, No shortness of breath Abdomen: + pain (improved), + nausea, No vomiting, No diarrhea Medications Current Inpatient Medications Medications (Trade) Dose Ordered Sig/Robson Route Start Time Stop Time Status Last Admin Dose Admin Acetaminophen (Tylenol Tab) 650 mg Q4H PRN PO 04/09/17 01:15 05/09/17 01:14 Insulin Aspart (novoLOG ASPART) SLIDING SCALE If C... ACHS SC 04/09/17 06:30 05/09/17 06:59 Glucose (Glucose 40% Gel) 15-30 GRAMS 15 GRAMS... UD PRN PO 04/09/17 01:15 05/09/17 01:14 Glucose (Glucose Chew Tab) 4-8 Tablets 4 Tabl... UD PRN PO 04/09/17 01:15 05/09/17 01:14 Dextrose (Dextrose 50% 50ML Syringe) 25-50ML OF 50% DW IV FOR... UD PRN IV 04/09/17 01:15 05/09/17 01:14 Glucagon (Glucagon Inj) 1 mg UD PRN SQ 04/09/17 01:15 05/09/17 01:14 Brinzolamide (Azopt) 1 drops BID OPB 04/09/17 09:00 05/09/17 08:59 04/14/17 08:29 1 DROPS Acetaminophen/ Hydrocodone Bitart ([place] 5/325 Tab) 1 tab Q6H PRN PO 04/09/17 01:15 04/23/17 01:14 04/12/17 08:04 1 TAB Multivitamins (Multivitamin Tab) 1 tab QAM PO 04/09/17 09:00 05/09/17 08:59 04/14/17 08:30 1 TAB Ranitidine HCl (zANTac TAB) 150 mg BID PO 04/09/17 09:00 05/09/17 08:59 04/14/17 08:29 150 MG Tramadol HCl (Ultram Tab) 50 mg Q6H PRN PO 04/09/17 01:15 05/09/17 01:14 04/09/17 02:00 50 MG Bimatoprost ([place]umigan 0.01%) 1 drops HS OPB 04/09/17 21:00 05/09/17 20:59 04/13/17 20:47 1 DROPS Pantoprazole Sodium (Protonix Tab) 40 mg BID PO 04/09/17 09:00 05/09/17 08:59 04/14/17 08:29 40 MG Lactobacillus Acidophilus (Floranex Tab) 1 tab QID PO 04/09/17 09:00 05/09/17 08:59 04/14/17 08:30 1 TAB Ondansetron HCl (Zofran Inj) 4 mg Q6H PRN IV 04/09/17 01:15 05/09/17 01:14 04/14/17 02:12 4 MG Hydromorphone HCl (Dilaudid Inj) 0.5 mg Q3H PRN IV 04/09/17 01:15 04/23/17 01:14 04/14/17 08:28 0.5 MG Terazosin HCl (Hytrin Cap) 2 mg HS PO 04/09/17 21:00 05/09/17 08:59 04/13/17 20:48 2 MG Metronidazole 500 mg/Prmx 100 ml @ 100 mls/hr Q8H IV 04/10/17 02:00 04/18/17 01:59 04/14/17 09:01 100 MLS/HR Ceftriaxone Sodium 1 gm/ Dextrose 50 ml @ 100 mls/hr DAILY@2300 IV 04/10/17 01:30 04/20/17 01:29 04/13/17 22:27 100 MLS/HR Promethazine HCl 12.5 mg/Sodium Chloride 50.5 ml @ 204 mls/hr Q6H PRN IV 04/12/17 02:30 05/12/17 02:29 04/14/17 08:28 204 MLS/HR Diltiazem HCl (Dilacor Xr Cap) 360 mg QAM PO 04/13/17 09:00 05/09/17 08:59 04/14/17 08:30 360 MG Ipratropium [place] (Atrovent Hfa Inhaler) 1 puffs QID INH 04/12/17 09:00 05/12/17 08:59 04/14/17 08:28 1 PUFFS Levalbuterol (Xopenex Hfa Inhaler) 1 puffs QID INH 04/12/17 09:00 05/12/17 08:59 04/14/17 08:29 1 PUFFS Lorazepam 0.5 mg/ Syringe 0.5 ml @ 0.5 mls/min Q6H PRN IV 04/12/17 12:00 05/12/17 11:59 04/13/17 22:28 0.5 MLS/MIN Non-Formulary Medication (Non-Formulary Patient'S Own Med) 1 ea DAILY PO 04/14/17 09:00 05/14/17 08:59 04/14/17 08:30 1 EA Objective Vital Signs Date Time Temp Pulse Resp B/P (MAP) Pulse Ox O2 Delivery O2 Flow Rate FiO2 04/14/17 08:00 Room Air 04/14/17 07:40 36.5 88 18 109/68 (82) 97 Nasal Cannula 4.0 04/14/17 00:00 92 Room Air 4.0 04/13/17 23:09 36.8 89 18 153/80 (104) 92 Room Air 04/13/17 20:43 63 137/76 (96) 04/13/17 16:00 92 Room Air 04/13/17 15:16 37.1 62 16 122/66 (84) 92 Physical Exam General Appearance: WD/WN, no apparent distress, + obese Eyes: normal inspection, PERRL, EOMI Neck: supple, no JVD, trachea midline Respiratory/Chest: normal breath sounds, no respiratory distress, no accessory muscle use Cardiovascular: regular rate, rhythm, no gallop, no murmur Abdomen: normal bowel sounds, soft, + tenderness (LLQ) Extremities: normal inspection, no pedal edema, no calf tenderness Neurologic/Psych: alert, normal mood/affect, oriented x 3 Skin: normal color, no jaundice, no rash Laboratory Results Last 24 Hours Test 04/13/17 16:40 04/13/17 19:53 04/14/17 05:48 04/14/17 07:32 Bedside Glucose 102 mg/dl 116 mg/dl 108 mg/dl White Blood Count 7.90 K/uL Red Blood Count 3.65 M/uL Hemoglobin 10.3 g/dL Hematocrit 32.5 % Mean Corpuscular Volume 89.0 fL Mean Corpuscular Hemoglobin 28.2 pg Mean Corpuscular Hemoglobin Concent 31.7 g/dl Platelet Count 311 K/uL Mean Platelet Volume 9.3 fL Neutrophils (%) (Auto) 36.3 % Lymphocytes (%) (Auto) 39.7 % Monocytes (%) (Auto) 13.5 % Eosinophils (%) (Auto) 9.7 % Basophils (%) (Auto) 0.5 % Neutrophils # (Auto) 2.86 K/uL Lymphocytes # (Auto) 3.14 K/uL Monocytes # (Auto) 1.07 K/uL Eosinophils # (Auto) 0.77 K/uL Basophils # (Auto) 0.04 K/uL RDW Standard Deviation 46.1 fL RDW Coefficient of Variation 14.0 % Immature Granulocyte % (Auto) 0.3 % Immature Granulocyte # (Auto) 0.02 K/uL Sodium Level 147 mmol/L Potassium Level 3.5 mmol/L Chloride Level 112 mmol/L Carbon Dioxide Level 30 mmol/L Anion Gap 5.0 mmol/L Blood Urea Nitrogen 2 mg/dl Creatinine 0.72 mg/dl Est Creatinine Clear Calc Drug Dose 77.5 ml/min Estimated GFR () 93.0 Estimated GFR (Non- 80.2 BUN/Creatinine Ratio 3.4 Random Glucose 98 mg/dl Calcium Level 8.6 mg/dl Assessment and Plan Patient is a 76 year old female with IBS-C and history of LGI bleed admitted for abd pain, w BRBPR. CT suspicious for ischemic colitis. Hgb dropped from 12 - 10 but stable for a few days now. Leukocytosis w WBC up to 19 but now normal. Cdiff and stool cx negative. She had been treated w Cipro/Flagyl. Rectal bleeding only scant when wiping now. LLQ abd pain is improving. - Complete Cipro/Flagyl for 7-10 days total. - Ok to advance diet as tolerated. She is lactose intolerant - Should be ready for DC by tomorrow; will arrange outpt colonoscopy in 4-6 week 's time. Late entry: Ptient was seen and examined with Lilibeth Edwards on 04/14. Her note reflects our findings and plan.
[2017-04-14] MEDS: LORAZEPAM INJ 0.5 MG in SYRINGE 0.25 ML IV PRN (14:31)
[2017-04-14 15:55] VITALS: BP 120/60; PULSE 56; TEMP 37; O2SAT 93
[2017-04-14] MEDS: BIMATOPROST 0.01% OP SOLN 2.5 ML BTL OPB SCH ×2 (21:25→22:00)
[2017-04-14] MEDS: CEFTRIAXONE SOD INJ 1 GM in DEXTROSE 5% ADD-VANTAGE 50ML 50 ML IV SCH (22:27)
--- NOTE | 2017-04-14 23:29 | Progress Note ---
Medicine Progress Note Date & Time of Visit: Apr 14, 2017 at 18:10 . Subjective No fever. No CP. No cough. Mild intermittent SOB (baseline). Persistent nausea. No emesis. Less left-sided abdominal pain. Passing stool with mucus. No hematochezia today. . Objective Last 8 Hrs Date Time Temp Pulse Resp B/P (MAP) Pulse Ox O2 Delivery O2 Flow Rate FiO2 04/14/17 16:00 Room Air 04/14/17 15:55 37.0 56 18 120/60 (80) 93 Physical Exam: General- no distress Neck- no JVD Lungs- clear to auscultation Heart- RRR Abdomen- normal bowel sounds, soft, nondistended, minimal left-sided tenderness Extremities- no pretibial edema or calf tenderness Neuro- alert, oriented . Laboratory Results: Last 24 Hours Test 04/14/17 05:48 04/14/17 07:32 04/14/17 11:37 04/14/17 16:20 White Blood Count 7.90 K/uL Red Blood Count 3.65 M/uL Hemoglobin 10.3 g/dL Hematocrit 32.5 % Mean Corpuscular Volume 89.0 fL Mean Corpuscular Hemoglobin 28.2 pg Mean Corpuscular Hemoglobin Concent 31.7 g/dl Platelet Count 311 K/uL Mean Platelet Volume 9.3 fL Neutrophils (%) (Auto) 36.3 % Lymphocytes (%) (Auto) 39.7 % Monocytes (%) (Auto) 13.5 % Eosinophils (%) (Auto) 9.7 % Basophils (%) (Auto) 0.5 % Neutrophils # (Auto) 2.86 K/uL Lymphocytes # (Auto) 3.14 K/uL Monocytes # (Auto) 1.07 K/uL Eosinophils # (Auto) 0.77 K/uL Basophils # (Auto) 0.04 K/uL RDW Standard Deviation 46.1 fL RDW Coefficient of Variation 14.0 % Immature Granulocyte % (Auto) 0.3 % Immature Granulocyte # (Auto) 0.02 K/uL Sodium Level 147 mmol/L Potassium Level 3.5 mmol/L Chloride Level 112 mmol/L Carbon Dioxide Level 30 mmol/L Anion Gap 5.0 mmol/L Blood Urea Nitrogen 2 mg/dl Creatinine 0.72 mg/dl Est Creatinine Clear Calc Drug Dose 77.5 ml/min Estimated GFR () 93.0 Estimated GFR (Non- 80.2 BUN/Creatinine Ratio 3.4 Random Glucose 98 mg/dl Calcium Level 8.6 mg/dl Bedside Glucose 108 mg/dl 89 mg/dl 123 mg/dl Test 04/14/17 20:09 Bedside Glucose 115 mg/dl Assessment & Plan ABDOMINAL PAIN / LOWER GI BLEED Hemoglobin at time of admission was 12.8. History of diverticulosis and previous diverticular bleed. CT demonstrated moderate thickening of the wall of the descending colon with associated pericolonic infiltration. Consider ischemic colitis, infectious colitis, other etiologies. GI consulted. Suspected ischemic colitis. C diff negative. Stool culture negative so far. Received IV metronidazole and ceftriaxone. WBC improving- today = 7900. Transition to oral therapy with ciprofloxacin and metronidazole to complete 7- 10 days of total antibiotic therapy. Advance diet in the morning to low fiber. ACUTE BLOOD LOSS ANEMIA Hgb 12.8 --> 10.3. Acute blood loss anemia secondary to lower GI bleed. No need for transfusion at this time. Follow. HYPERTENSION Continue diltiazem and terazosin with hold parameters. Follow and titrate Rx. ASTHMA / COPD Stable. Continue usual meds. DM TYPE II Hold oral agents in light of hospitalization and acute illness. Check hemoglobin A1c. FBS today = 108. Insulin coverage PRN. VTE PROPHYLAXIS No anticoagulants in light of GI bleed. SCD's. Ambulate. DISPOSITION Expected discharge to home. Internal Medicine follow-up with Dr. Marcela Pinto. . Consultants: GI . Procedures: CT abdomen and pelvis IV fluids IV medications . Current Inpatient Medications: Current Inpatient Medications Medications (Trade) Dose Ordered Sig/Robson Route Start Time Stop Time Status Last Admin Dose Admin Acetaminophen (Tylenol Tab) 650 mg Q4H PRN PO 04/09/17 01:15 05/09/17 01:14 Insulin Aspart (novoLOG ASPART) SLIDING SCALE If C... ACHS SC 04/09/17 06:30 05/09/17 06:59 Glucose (Glucose 40% Gel) 15-30 GRAMS 15 GRAMS... UD PRN PO 04/09/17 01:15 05/09/17 01:14 Glucose (Glucose Chew Tab) 4-8 Tablets 4 Tabl... UD PRN PO 04/09/17 01:15 05/09/17 01:14 Dextrose (Dextrose 50% 50ML Syringe) 25-50ML OF 50% DW IV FOR... UD PRN IV 04/09/17 01:15 05/09/17 01:14 Glucagon (Glucagon Inj) 1 mg UD PRN SQ 04/09/17 01:15 05/09/17 01:14 Brinzolamide (Azopt) 1 drops BID OPB 04/09/17 09:00 05/09/17 08:59 04/14/17 21:25 1 DROPS Acetaminophen/ Hydrocodone Bitart ([place] 5/325 Tab) 1 tab Q6H PRN PO 04/09/17 01:15 04/23/17 01:14 04/12/17 08:04 1 TAB Multivitamins (Multivitamin Tab) 1 tab QAM PO 04/09/17 09:00 05/09/17 08:59 04/14/17 08:30 1 TAB Ranitidine HCl (zANTac TAB) 150 mg BID PO 04/09/17 09:00 05/09/17 08:59 04/14/17 21:27 150 MG Tramadol HCl (Ultram Tab) 50 mg Q6H PRN PO 04/09/17 01:15 05/09/17 01:14 04/09/17 02:00 50 MG Bimatoprost ([place]um[place] 0.01%) 1 drops HS OPB 04/09/17 21:00 05/09/17 20:59 04/14/17 21:25 1 DROPS Pantoprazole Sodium (Protonix Tab) 40 mg BID PO 04/09/17 09:00 05/09/17 08:59 04/14/17 21:28 40 MG Lactobacillus Acidophilus (Floranex Tab) 1 tab QID PO 04/09/17 09:00 05/09/17 08:59 04/14/17 21:26 1 TAB Ondansetron HCl (Zofran Inj) 4 mg Q6H PRN IV 04/09/17 01:15 05/09/17 01:14 04/14/17 21:19 4 MG Hydromorphone HCl (Dilaudid Inj) 0.5 mg Q3H PRN IV 04/09/17 01:15 04/23/17 01:14 04/14/17 21:20 0.5 MG Terazosin HCl (Hytrin Cap) 2 mg HS PO 04/09/17 21:00 05/09/17 08:59 04/14/17 21:27 2 MG Metronidazole 500 mg/Prmx 100 ml @ 100 mls/hr Q8H IV 04/10/17 02:00 04/18/17 01:59 04/14/17 17:50 100 MLS/HR Ceftriaxone Sodium 1 gm/ Dextrose 50 ml @ 100 mls/hr DAILY@2300 IV 04/10/17 01:30 04/20/17 01:29 04/14/17 22:27 100 MLS/HR Promethazine HCl 12.5 mg/Sodium Chloride 50.5 ml @ 204 mls/hr Q6H PRN IV 04/12/17 02:30 05/12/17 02:29 04/14/17 08:28 204 MLS/HR Diltiazem HCl (Dilacor Xr Cap) 360 mg QAM PO 04/13/17 09:00 05/09/17 08:59 04/14/17 08:30 360 MG Ipratropium [place] (Atrovent Hfa Inhaler) 1 puffs QID INH 04/12/17 09:00 05/12/17 08:59 04/14/17 21:24 1 PUFFS Levalbuterol (Xopenex Hfa Inhaler) 1 puffs QID INH 04/12/17 09:00 05/12/17 08:59 04/14/17 21:24 1 PUFFS Lorazepam 0.5 mg/ Syringe 0.5 ml @ 0.5 mls/min Q6H PRN IV 04/12/17 12:00 05/12/17 11:59 04/14/17 14:31 0.5 MLS/MIN Non-Formulary Medication (Non-Formulary Patient'S Own Med) 1 ea DAILY PO 04/14/17 09:00 05/14/17 08:59 04/14/17 08:30 1 EA
[2017-04-15 00:04] VITALS: BP 137/60; PULSE 72; TEMP 36.7; O2SAT 98
[2017-04-15] MEDS: METRONIDAZOLE / NSS 500 MG in PREMIXED NSS 100 ML IV SCH (01:55)
[2017-04-15] MEDS: HYDROCODONE/ACETAMOPHEN 5/325MG TAB PO PRN ×3 (02:03→17:05)
[2017-04-15] MEDS: ONDANSETRON INJ 2 MG/ML 2 ML VIAL IV PRN ×3 (05:03→23:20)
[2017-04-15 07:27] VITALS: BP 98/64; PULSE 75; TEMP 36.5; O2SAT 96
[2017-04-15 08:13] LABS: BASO % 0.4 %; BASO ABS # 0.03 K/uL (0-0.2); COMPLETE YES; EOS % 9.5 %; HEMATOCRIT 33.2 % (37-47); IG% 0.3 %; LYMPH % 43.5 %; LYMPH ABS # 3.26 K/uL (1.2-3.4); MEAN CELL VOLUME 88.1 fL (80-100); MEAN CORPUSCULAR HEMOGLOBIN 27.6 pg (25-34); MEAN CORPUSCULAR HGB CONC 31.3 g/dl (32-36); MEAN PLATELET VOLUME 8.9 fL (7.4-10.4); MONO % 10.9 %; NEUT % 35.4 %; PLATELET COUNT 344 K/uL (130-400); RED BLOOD COUNT 3.77 M/uL (4.2-5.4)
[2017-04-15] MEDS: INSULIN ASPART 100 UNITS/ML 3 ML PEN SC SCH ×4 (08:22→21:04)
[2017-04-15] MEDS: IPRATROPIUM BROMIDE HFA INHALER INH SCH ×4 (08:26→19:35)
[2017-04-15] MEDS: LEValbuterol HFA 15GM INHALER INH SCH ×4 (08:26→19:35)
[2017-04-15] MEDS: BRINZOLAMIDE (AZOPT) OPS 10 ML BTL OPB SCH ×2 (08:27→19:36)
[2017-04-15] MEDS: DILTIAZEM HCL 180 MG ER CAP PO SCH (08:29)
[2017-04-15] MEDS: CIPROFLOXACIN 500 MG TAB PO SCH ×2 (08:29→19:37)
[2017-04-15] MEDS: LACTOBACILLUS ACIDOPHILUS (FLORANEX) TAB PO SCH ×4 (08:29→19:38)
[2017-04-15] MEDS: METRONIDAZOLE 500 MG TAB PO SCH ×3 (08:30→19:38)
[2017-04-15] MEDS: ZAFIRLUKAST 20 MG PO SCH (08:32)
[2017-04-15] MEDS: RANITIDINE HCL 150 MG TAB PO SCH (08:32)
[2017-04-15] MEDS: PANTOprazole SOD 40 MG TAB PO SCH ×2 (08:33→19:39)
[2017-04-15] MEDS: PROMETHAZINE HCL INJ 12.5 MG in SODIUM CHLORIDE 0.9% 50ML 50 ML IV PRN (09:11)
[2017-04-15] MEDS: MULTIVITAMIN TAB PO SCH (09:12)
[2017-04-15 09:18] LABS: BUN/CREATININE RATIO 3.1 (10-20); CREATININE 0.83 mg/dl (0.60-1.20); POTASSIUM 3.3 mmol/L (3.5-5.1)
[2017-04-15] MEDS ORDERED: POTASSIUM CHLORIDE 20 MEQ TABCR PO ONE (10:15)
[2017-04-15 15:05] VITALS: BP 124/70; PULSE 60; TEMP 37; O2SAT 96
--- NOTE | 2017-04-15 18:27 | Progress Note ---
Internal Med Progress Note Date of Service: Apr 15, 2017. Provider Documentation: SUBJECTIVE: Patient is sitting in her bed and c/o intermittent nausea and still has left sided abdominal pain. Remains afebrile. Has been tolerating the oral intake so far. OBJECTIVE: Vital Signs-as noted below Examination: General- Alert/Awake and is in no distress HEENT: Normocephalic, No icterus Neck- Supple, Midline trachea, no JVD Lungs- B/L clear to auscultation Heart- RRR, Normal S1, S2. Abdomen- normal bowel sounds, soft, nondistended, minimal left-sided tenderness on deep palpation Extremities- no pretibial edema or calf tenderness Neuro- alert, oriented . Lab data as noted below. ASSESSMENT & PLAN: Acute Abdominal Pain/Lower GI Bleed: Clinically improving. Hemoglobin at time of admission was 12.8. History of diverticulosis and previous diverticular bleed. CT demonstrated moderate thickening of the wall of the descending colon with associated pericolonic infiltration. -GI consulted & following the patient.Thanks -Suspected ischemic colitis. -C diff is negative. -Stool culture negative so far. -Received IV metronidazole and ceftriaxone.Now on oral Cipro & Flagyl. -WBC improving & are in normal range -Advance diet to low fiber. Acute Blood Loss Anemia: Hgb 12.8 --> 10.3 --> 10.4. Acute blood loss anemia secondary to lower GI bleed. -No need for transfusion at this time. -Follow H/H. History Hypertension: BP has been stable. -Continue diltiazem and terazosin with hold parameters. -Follow and titrate Rx. History Bronchial Asthma/COPD: Stable. -Continue usual meds. Diabetes Type II: Holding oral agents in light of hospitalization and acute illness. -Monitor BS closely & Insulin coverage PRN. VTE Prophylaxis: No anticoagulants in light of GI bleed. SCD's & Ambulate. Disposition: Expected discharge to home in 1-2 days. Internal Medicine follow-up with Dr. Marcela Pinto. . Consultants: GI . Procedures: CT abdomen and pelvis IV fluids IV medications Vital Signs: Date Time Temp Pulse Resp B/P (MAP) Pulse Ox O2 Delivery O2 Flow Rate FiO2 04/16/17 08:01 36.8 81 18 128/76 (93) 98 Nasal Cannula 4.0 04/16/17 00:31 36.6 59 18 105/64 (78) 98 Nasal Cannula 4.0 04/16/17 00:00 Nasal Cannula 4.0 04/15/17 16:30 Room Air 04/15/17 15:05 37.0 60 16 124/70 (88) 96 Room Air Lab Results: Results Past 24 Hours Test 04/15/17 11:16 04/15/17 16:33 04/15/17 20:19 04/16/17 01:38 Range/Units Bedside Glucose 128 118 189 125 70-90 mg/dl Test 04/16/17 07:39 04/16/17 07:48 Range/Units White Blood Count 8.29 4.8-10.8 K/uL Red Blood Count 3.69 4.2-5.4 M/uL Hemoglobin 10.6 12.0-16.0 g/dL Hematocrit 32.8 37-47 % Mean Corpuscular Volume 88.9 80-100 fL Mean Corpuscular Hemoglobin 28.7 25-34 pg Mean Corpuscular Hemoglobin Concent 32.3 32-36 g/dl Platelet Count 324 130-400 K/uL Mean Platelet Volume 9.0 7.4-10.4 fL Neutrophils (%) (Auto) 39.4 % Lymphocytes (%) (Auto) 41.3 % Monocytes (%) (Auto) 10.9 % Eosinophils (%) (Auto) 7.6 % Basophils (%) (Auto) 0.4 % Neutrophils # (Auto) 3.28 1.4-6.5 K/uL Lymphocytes # (Auto) 3.42 1.2-3.4 K/uL Monocytes # (Auto) 0.90 0.11-0.59 K/uL Eosinophils # (Auto) 0.63 0-0.5 K/uL Basophils # (Auto) 0.03 0-0.2 K/uL RDW Standard Deviation 45.6 36.4-46.3 fL RDW Coefficient of Variation 14.0 11.5-14.5 % Immature Granulocyte % (Auto) 0.4 % Immature Granulocyte # (Auto) 0.03 0.00-0.02 K/uL Sodium Level 143 136-145 mmol/L Potassium Level 3.5 3.5-5.1 mmol/L Chloride Level 108 98-107 mmol/L Carbon Dioxide Level 30 21-32 mmol/L Anion Gap 5.0 3-11 mmol/L Blood Urea Nitrogen 7 7-18 mg/dl Creatinine 1.00 0.60-1.20 mg/dl Est Creatinine Clear Calc Drug Dose 55.8 ml/min Estimated GFR () 62.5 Estimated GFR (Non- 53.9 BUN/Creatinine Ratio 7.3 10-20 Random Glucose 125 70-99 mg/dl Calcium Level 9.1 8.5-10.1 mg/dl Total Bilirubin 0.2 0.2-1 mg/dl Aspartate Amino Transf (AST/SGOT) 16 15-37 U/L Alanine Aminotransferase (ALT/SGPT) 16 12-78 U/L Alkaline Phosphatase 85 45-117 U/L Total Protein 6.2 6.4-8.2 gm/dl Albumin 2.9 3.4-5.0 gm/dl Globulin 3.3 2.5-4.0 gm/dl Albumin/Globulin Ratio 0.9 0.9-2 Bedside Glucose 122 70-90 mg/dl
[2017-04-15] MEDS ORDERED: DOCUSATE SODIUM/SENNA 50/8.6MG TAB PO ONE (18:30)
[2017-04-15] MEDS: METOCLOPRAMIDE HCL INJ 5 MG/ML 2 ML VIAL IV. SCH (19:05)
[2017-04-15] MEDS: BIMATOPROST 0.01% OP SOLN 2.5 ML BTL OPB SCH (19:36)
[2017-04-15] MEDS: TRAMADOL HCL 50 MG TAB PO PRN (23:19)
[2017-04-16 00:31] VITALS: BP 105/64; PULSE 59; TEMP 36.6; O2SAT 98
[2017-04-16] MEDS: HYDROCODONE/ACETAMOPHEN 5/325MG TAB PO PRN ×2 (01:31→11:25)
[2017-04-16] MEDS: METOCLOPRAMIDE HCL INJ 5 MG/ML 2 ML VIAL IV. SCH ×2 (01:34→07:49)
[2017-04-16] MEDS: LEValbuterol HFA 15GM INHALER INH SCH ×2 (07:49→12:44)
[2017-04-16] MEDS: IPRATROPIUM BROMIDE HFA INHALER INH SCH ×2 (07:49→12:43)
[2017-04-16] MEDS: BRINZOLAMIDE (AZOPT) OPS 10 ML BTL OPB SCH (07:50)
[2017-04-16] MEDS: INSULIN ASPART 100 UNITS/ML 3 ML PEN SC SCH ×2 (07:50→12:22)
[2017-04-16 07:58] LABS: BASO % 0.4 %; BASO ABS # 0.03 K/uL (0-0.2); COMPLETE YES; EOS % 7.6 %; HEMATOCRIT 32.8 % (37-47); IG% 0.4 %; LYMPH % 41.3 %; LYMPH ABS # 3.42 K/uL (1.2-3.4); MEAN CELL VOLUME 88.9 fL (80-100); MEAN CORPUSCULAR HEMOGLOBIN 28.7 pg (25-34); MEAN CORPUSCULAR HGB CONC 32.3 g/dl (32-36); MONO % 10.9 %; NEUT % 39.4 %; PLATELET COUNT 324 K/uL (130-400); RED BLOOD COUNT 3.69 M/uL (4.2-5.4); WHITE BLOOD COUNT 8.29 K/uL (4.8-10.8)
[2017-04-16 08:00] VITALS: O2SAT 98
[2017-04-16] MEDS: ZAFIRLUKAST 20 MG PO SCH (08:00)
[2017-04-16] MEDS ORDERED: DOCUSATE SODIUM/SENNA 50/8.6MG TAB PO SCH (08:00)
[2017-04-16 08:01] VITALS: BP 128/76; PULSE 81; TEMP 36.8; O2SAT 98
[2017-04-16 08:28] LABS: BUN/CREATININE RATIO 7.3 (10-20); CALCIUM 9.1 mg/dl (8.5-10.1); POTASSIUM 3.5 mmol/L (3.5-5.1)
[2017-04-16 08:32] LABS: ALB/GLOB RATIO 0.9 (0.9-2)
[2017-04-16] MEDS: MULTIVITAMIN TAB PO SCH (08:40)
[2017-04-16] MEDS: DILTIAZEM HCL 180 MG ER CAP PO SCH (08:41)
[2017-04-16] MEDS: METRONIDAZOLE 500 MG TAB PO SCH ×2 (08:41→14:24)
[2017-04-16] MEDS: LACTOBACILLUS ACIDOPHILUS (FLORANEX) TAB PO SCH ×2 (08:42→12:44)
[2017-04-16] MEDS: CIPROFLOXACIN 500 MG TAB PO SCH (08:42)
[2017-04-16] MEDS: PANTOprazole SOD 40 MG TAB PO SCH (08:42)
--- NOTE | 2017-04-16 12:36 | Progress Note ---
Internal Med Progress Note Date of Service: Apr 16, 2017. Provider Documentation: SUBJECTIVE: Patient is sitting in her bed and is feeling much better today. Nausea has almost resolved.Minimal and tolerable abdominal pain. Remains afebrile. Has been tolerating the oral intake so far. OBJECTIVE: Vital Signs-as noted below Examination: General- Alert/Awake and is in no distress HEENT: Normocephalic, No icterus Neck- Supple, Midline trachea, no JVD Lungs- B/L clear to auscultation Heart- RRR, Normal S1, S2. Abdomen- normal bowel sounds, soft, nondistended, minimal left-sided tenderness on deep palpation Extremities- no pretibial edema or calf tenderness Neuro- alert, oriented . Lab data as noted below. ASSESSMENT & PLAN: Acute Abdominal Pain/Lower GI Bleed: Clinically improving. Hemoglobin at time of admission was 12.8. History of diverticulosis and previous diverticular bleed. CT demonstrated moderate thickening of the wall of the descending colon with associated pericolonic infiltration. -GI consulted & following the patient.Thanks -Suspected ischemic colitis. -C diff is negative. -Stool culture negative so far. -Received IV metronidazole (since 09 April) and ceftriaxone (Started April 10).Now on oral Cipro & Flagyl. So has received Flagyl for 8 days & Antibiotics for 7 days. Will complete total 14 days -WBC improving & are in normal range -Advance diet to low fiber. Acute Blood Loss Anemia: Hgb 12.8 --> 10.3 --> 10.4. Acute blood loss anemia secondary to lower GI bleed. -No need for transfusion at this time. -Follow H/H. History Hypertension: BP has been stable. -Continue diltiazem and terazosin with hold parameters. -Follow and titrate Rx. History Bronchial Asthma/COPD: Stable. -Continue usual meds. Diabetes Type II: Holding oral agents in light of hospitalization and acute illness. -Monitor BS closely & Insulin coverage PRN. VTE Prophylaxis: No anticoagulants in light of GI bleed. SCD's & Ambulate. Disposition: Expected discharge to home later today. Internal Medicine follow-up with Dr. Marcela Pinto. . Consultants: GI . Procedures: CT abdomen and pelvis IV fluids IV medications Vital Signs: Date Time Temp Pulse Resp B/P (MAP) Pulse Ox O2 Delivery O2 Flow Rate FiO2 7/5/17 08:01 36.8 81 18 128/76 (93) 98 Nasal Cannula 4.0 04/16/17 08:00 98 Nasal Cannula 4.0 04/16/17 00:31 36.6 59 18 105/64 (78) 98 Nasal Cannula 4.0 04/16/17 00:00 Nasal Cannula 4.0 04/15/17 16:30 Room Air 04/15/17 15:05 37.0 60 16 124/70 (88) 96 Room Air Lab Results: Results Past 24 Hours Test 04/15/17 16:33 04/15/17 20:19 04/16/17 01:38 04/16/17 07:39 Range/Units Bedside Glucose 118 189 125 70-90 mg/dl White Blood Count 8.29 4.8-10.8 K/uL Red Blood Count 3.69 4.2-5.4 M/uL Hemoglobin 10.6 12.0-16.0 g/dL Hematocrit 32.8 37-47 % Mean Corpuscular Volume 88.9 80-100 fL Mean Corpuscular Hemoglobin 28.7 25-34 pg Mean Corpuscular Hemoglobin Concent 32.3 32-36 g/dl Platelet Count 324 130-400 K/uL Mean Platelet Volume 9.0 7.4-10.4 fL Neutrophils (%) (Auto) 39.4 % Lymphocytes (%) (Auto) 41.3 % Monocytes (%) (Auto) 10.9 % Eosinophils (%) (Auto) 7.6 % Basophils (%) (Auto) 0.4 % Neutrophils # (Auto) 3.28 1.4-6.5 K/uL Lymphocytes # (Auto) 3.42 1.2-3.4 K/uL Monocytes # (Auto) 0.90 0.11-0.59 K/uL Eosinophils # (Auto) 0.63 0-0.5 K/uL Basophils # (Auto) 0.03 0-0.2 K/uL RDW Standard Deviation 45.6 36.4-46.3 fL RDW Coefficient of Variation 14.0 11.5-14.5 % Immature Granulocyte % (Auto) 0.4 % Immature Granulocyte # (Auto) 0.03 0.00-0.02 K/uL Sodium Level 143 136-145 mmol/L Potassium Level 3.5 3.5-5.1 mmol/L Chloride Level 108 98-107 mmol/L Carbon Dioxide Level 30 21-32 mmol/L Anion Gap 5.0 3-11 mmol/L Blood Urea Nitrogen 7 7-18 mg/dl Creatinine 1.00 0.60-1.20 mg/dl Est Creatinine Clear Calc Drug Dose 55.8 ml/min Estimated GFR () 62.5 Estimated GFR (Non- 53.9 BUN/Creatinine Ratio 7.3 10-20 Random Glucose 125 70-99 mg/dl Calcium Level 9.1 8.5-10.1 mg/dl Total Bilirubin 0.2 0.2-1 mg/dl Aspartate Amino Transf (AST/SGOT) 16 15-37 U/L Alanine Aminotransferase (ALT/SGPT) 16 12-78 U/L Alkaline Phosphatase 85 45-117 U/L Total Protein 6.2 6.4-8.2 gm/dl Albumin 2.9 3.4-5.0 gm/dl Globulin 3.3 2.5-4.0 gm/dl Albumin/Globulin Ratio 0.9 0.9-2 Test 04/16/17 07:48 Range/Units Bedside Glucose 122 70-90 mg/dl
[2017-04-16] MEDS ORDERED: MTR500 PO (12:41)
[2017-04-16] MEDS ORDERED: CPR500 PO (12:41)
--- NOTE | 2017-04-16 12:43 | Discharge Instructions ---
Discharge Instructions Date of Service Apr 16, 2017. Admission Reason for Admission: Colitis Discharge Discharge Diagnosis / Problem: Acute Colitis Discharge Goals Goal(s): Decrease discomfort, Improve function, Increase independence, Improve disease control, Improve nutritional status, Learn about illness, Diagnostic testing, Therapeutic intervention, Prevent Disease Progression Activity Recommendations Activity Limitations: resume your previous activity (A tolerated following fall precauions) Lifting Limitations: no more than 5 pounds Exercise/Sports Limitations: as tolerated Shower/Bathe: no limitations Driving or Machine Use: One cleared by PCP . Instructions / Follow-Up Instructions / Follow-Up Follow up with PCP within one week after discharge Follow up with GI as outpatient as per their recommendations. Current Hospital Diet Patient's current hospital diet: Low Lactose Diet, Low Fiber Diet, AHA Diet ( Heart Healthy), Diabetes Type 2 Diet Discharge Diet Recommended Diet: Low Fiber Diet (Avoid nuts, seeds etc. Start with soft and liquid diet for now and advance it gradually) Pending Studies Studies pending at discharge: no Medical Emergencies . Who to Call and When: Medical Emergencies: If at any time you feel your situation is an emergency, please call 911 immediately. . Non-Emergent Contact Non-Emergency issues call your: Primary Care Provider . . "Provider Documentation" section prepared by Herbert Willams. . VTE Core Measure Inpt VTE Proph given/why not?: SCD's (And Ambulation)
[2017-04-16] MEDS ORDERED: SENN-91 PO (12:46)
--- NOTE | 2017-04-16 12:49 | Discharge Summary ---
Discharge Summary Date of Service Apr 16, 2017. Discharge Summary Admission Date: Apr 09, 2017 at 00:53 Discharge Date: Apr 16, 2017 Discharge Disposition: Home Principal Diagnosis: Lower GI Bleed Abdominal pain (resolved) Likely Colitis Secondary Diagnoses/Problems: Blood Loss Anemia Hypertension Bronchial Asthma COPD Diabetes Type II Procedures: CT abdomen and pelvis IV fluids IV medications . Vaccinations: NONE Consultations: GI . Pending Studies/Follow-Up: Follow up with GI as outpatient Medication Reconciliation New Medications: Sennosides-Docusate Sodium (Senna S) 1 Tab Tab 1 TAB PO BID for constipation, #50 TABS Ciprofloxacin (Ciprofloxacin HCl) 500 Mg Tab 500 MG PO BID for 7 Days, #14 TAB Metronidazole (Metronidazole) 500 Mg Tab 500 MG PO TID, #18 TAB Continued Medications: Albuterol Sulf (Proventil 0.083% 2.5MG/3ML) 2.5 Mg/3 Ml Nebu 2.5 MG INH BID PRN for SOB/Wheezing, EA Ascorbic Acid (Vitamin C) 500 Mg Cap 1 CAP PO QAM Bimatoprost (Lumigan) 0.01 % Talia 1 DROPS OPB HS for 90 Days, #7.5 ML 3 Refills Brinzolamide Oph (Azopt Oph) 1 % Tammie 1 DROPS OPB BID for 90 Days, #15 ML 3 Refills Cholecalciferol (Vitamin D 1000 Unit) 1,000 Unit Cap 1000 INTER.UNIT PO QAM, CAP Clonidine Hcl (Catapres) 0.1 Mg Tab 1 TAB PO DIRECTED PRN for Hypertension for 90 Days, TAB 1 Refill TAKE IF B/P > 170/90 Dicyclomine Hcl (Bentyl) 20 Mg Tab 20 MG PO QAM, TAB Diltiazem Hcl Coated Beads (Diltiazem Hcl Er) 360 Mg Cap 360 MG PO QAM Ferrous Sulfate (Iron) 325 Mg Tab 1 TAB PO QAM Furosemide (Lasix) 40 Mg Tab 1 TAB PO DAILY, TAB 5 Refills Do not take on a regular basis. May take as needed for fluid retention (swelling of ankles or feet). Glimepiride (Glimepiride) 4 Mg Tab 2 MG PO DAILY Home O2 Therapy (Oxygen) Gas 4 LITER NA HS Hydrocodone/Acetaminophen 5MG/325MG ([place] 5MG/325MG) Tab 1 TAB PO Q6H PRN for Pain for 30 Days, #90 TAB PRN PAIN Ipratropium-Albuterol (Combivent Respimat) 1 Aer Aer 1 PUFFS INH QID, INH Levalbuterol Tartrate (Levalbuterol Tartrate Hfa) 45 Mcg/Act Aer 1 DOSE PO DAILY Multivitamin (Multivitamin) Tab 1 TAB PO QAM, TAB Omeprazole (Prilosec) 20 Mg Cap 1 CAP PO BID for 30 Days, #30 CAP 5 Refills Ondansetron (Ondansetron Odt) 8 Mg Soltab 8 MG PO TID PRN for Nausea or Vomiting Polyethylene Glycol 3350 (Bulk (Polyethylene Glycol 3350) 1 Pow Pow 17 GM PO DAILY for 30 Days, #527 GM 11 Refills Potassium Ext Rel (Klor-Con) 20 Meq Tabcr 20 MEQ PO DAILY, TAB Do not take on a regular basis. Take on days that you take furosemide (Lasix) for fluid retention. Probiotic Product (Probiotic) 1 Cap Cap 1 CAP PO QAM Terazosin Hcl (Hytrin) 2 Mg Cap 1 CAP PO HS, CAP 1 Refill ONLY IF BP IS HIGH PER DOCTOR SCHEDULE Tramadol (Ultram) 50 Mg Tab 50 MG PO Q6H PRN for Pain, TAB Trazodone Hcl (Trazodone) 50 Mg Tab 50 MG PO HS Zafirlukast (Accolate) 20 Mg Tab 20 MG PO QAM, TAB Discontinued Medications: Ranitidine Hcl (Zantac) 150 Mg Tab 1 TAB PO BID for 90 Days, #180 TAB 3 Refills Admission Information HPI (per Admitting provider): One day history of bloody diarrhea with lower achy abdominal pain. Some nausea no emesis no fever no chills no recent antibiotics no known sick contacts no recent travel. Physical Exam (per Admitting): General Appearance: no apparent distress Head: normocephalic ENT: normal ENT inspection, + pertinent finding Neck: supple, + pertinent finding Respiratory/Chest: + decreased breath sounds Cardiovascular: regular rate, rhythm Abdomen/GI: + tenderness Extremities/Musculoskelatal: + calf tenderness Neurologic/Psych: alert Skin: + pallor Hospital Course Acute Abdominal Pain/Lower GI Bleed: Clinically improving. Hemoglobin at time of admission was 12.8. History of diverticulosis and previous diverticular bleed.Likely Colitis CT demonstrated moderate thickening of the wall of the descending colon with associated pericolonic infiltration. -GI consulted & following the patient.Thanks -Suspected ischemic colitis. -C diff is negative. -Stool culture negative so far. -Received IV metronidazole (since 09 April) and ceftriaxone (Started April 10).Now on oral Cipro & Flagyl. So has received Flagyl for 8 days & Antibiotics for 7 days. Will complete total 14 days -WBC improving & are in normal range -Advance diet to low fiber. Acute Blood Loss Anemia: Hgb 12.8 --> 10.3 --> 10.4. Acute blood loss anemia secondary to lower GI bleed. -No need for transfusion at this time. -Follow H/H. History Hypertension: BP has been stable. -Continue diltiazem and terazosin with hold parameters. -Follow and titrate Rx. History Bronchial Asthma/COPD: Stable. -Continue usual meds. Diabetes Type II: Holding oral agents in light of hospitalization and acute illness. -Monitor BS closely & Insulin coverage PRN. VTE Prophylaxis: No anticoagulants in light of GI bleed. SCD's & Ambulate. Disposition: Expected discharge to home later today. Internal Medicine follow-up with Dr. Marcela Pinto. . Consultants: GI . Procedures: CT abdomen and pelvis IV fluids IV medications Total time spent on discharge = 40 minutes. This includes examination of the patient, discharge planning, medication reconciliation, and communication with other providers. Discharge Instructions Discharge Goals Goal(s): Decrease discomfort, Improve function, Increase independence, Improve disease control, Improve nutritional status, Learn about illness, Diagnostic testing, Therapeutic intervention, Prevent Disease Progression Activity Recommendations Activity Limitations: resume your previous activity (A tolerated following fall precauions) Lifting Limitations: no more than 5 pounds Exercise/Sports Limitations: as tolerated Shower/Bathe: no limitations Driving or Machine Use: One cleared by PCP . Instructions / Follow-Up Instructions / Follow-Up Follow up with PCP within one week after discharge Follow up with GI as outpatient as per their recommendations. Current Hospital Diet Patient's current hospital diet: Low Lactose Diet, Low Fiber Diet, AHA Diet ( Heart Healthy), Diabetes Type 2 Diet Discharge Diet Recommended Diet: Low Fiber Diet (Avoid nuts, seeds etc. Start with soft and liquid diet for now and advance it gradually) Additional Copies To Marcela Pinto M.D.
[2017-04-16 14:29] VITALS: BP 128/76; PULSE 81; TEMP 36.8; O2SAT 98
[2017-04-16 15:10] VITALS: BP 126/80; PULSE 77; TEMP 36.9; O2SAT 93
[2017-05-29] MEDS ORDERED: LEVA45AE INH (11:25)
== END 2017-04-16 16:32 | disposition home or self-care (01) | DRG 394 ==
LOC: C.EDB 23:09 → C.MED 04-09 00:53 → ENRESERV 04-09 01:15 → C.MS4W 04-14 21:11
PROVIDERS: ADMIT Hospitalist; ATTEND Emergency Medicine
DX: K55.9 Vascular disorder of intestine, unspecified (principal); K92.2 Gastrointestinal hemorrhage, unspecified; J96.10 Chronic respiratory failure, unspecified whether with hypoxia or hypercapnia; D62 Acute posthemorrhagic anemia; K52.9 Noninfective gastroenteritis and colitis, unspecified; J44.9 Chronic obstructive pulmonary disease, unspecified; E11.9 Type 2 diabetes mellitus without complications; I10 Essential (primary) hypertension; G47.30 Sleep apnea, unspecified; M19.90 Unspecified osteoarthritis, unspecified site; G56.00 Carpal tunnel syndrome, unspecified upper limb; Z87.19 Personal history of other diseases of the digestive system; Z79.899 Other long term (current) drug therapy; Z79.891 Long term (current) use of opiate analgesic; Z99.81 Dependence on supplemental oxygen; Z79.84 Long term (current) use of oral hypoglycemic drugs

== ENCOUNTER → 2017-06-05 | Day surgery (SDC) | payer OTHER ==
[2017-05-29 11:27] VITALS: Ht 165.1 cm; Wt 100.0 kg
[~2017-06-05] VITALS: Ht 165.1 cm; Wt 100.0 kg
[~2017-06-05] MED LIST changes: -ATOR-24 PO; -ATV/1 PO; +ETOMIDATE 2 MG/ML 20 ML VIAL IV ONE; +EpHEDrine SULFATE 50MG/5ML SYR ONE; +GLIM4TAB2 PO; +LEVA45AE INH; +LIDOCAINE HCL 2% 2 ML VIAL (20MG/ML) ONE; +ONDANSETRON INJ 2 MG/ML 2 ML VIAL IV PRN; +PROPOFOL IV EMULSION 10 MG/ML 20 ML VIAL IV ONE; -RANI150T3 PO; +SENN-91 PO; +SODIUM CHLORIDE 0.9% 500ML 500 ML IV ONE; -SPRIN/30 INH; +TRAZ50TA35 PO; +ZFRODT/8 PO
--- NOTE | 2017-06-05 09:04 | Endo History and Physical ---
History & Physical Date of Service: Jun 05, 2017. Chief Complaint: lower GI bleed,Ischemic colitis Referring Physician: Dr. Marcela Pinto History of Present Illness Patient for colonoscopy today in follow-up after gastric intestinal bleeding. Past Medical History Diabetes, Osteoporosis, Arthritis, Asthma, Anxiety, Reflux, Sleep Apnea, Hypertension, COPD Past Surgical History Hx Cardiac Surgery: No Hx Internal Defibrillator: No Hx Pacemaker: No Hx Abdominal Surgery: Yes (LAP DAISY, HERNIA, TUBAL LIGATION) Hx of Implantable Prosthesis: No Hx Post-Op Nausea and Vomiting: No Hx Cancer Surgery: No Hx Thoracic Surgery: No Hx Orthopedic: No Hx Urinary Tract Surgery: No Family History None 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 Smoking Status: Never Smoker Hx Substance Use: No Hx Alcohol Use: No Allergies Coded Allergies: Iodinated Contrast Media (Verified Allergy, Intermediate, HIVES-GI SYMPTOMS, 05/29/17) [place] (Verified Allergy, Intermediate, HIVES, 05/29/17) Bupropion (Verified Adverse Reaction, Mild, GI SYMPTOMS, 05/29/17) Enalapril (Verified Adverse Reaction, Mild, GI SYMPTOMS, 05/29/17) Escitalopram (Verified Adverse Reaction, Mild, GI SYMPTOMS, 05/29/17) Metoprolol (Verified Adverse Reaction, Mild, LOWERS PULSE RATE, 05/29/17) Lisinopril (Verified Adverse Reaction, Unknown, FAST HEART BEAT, 05/29/17) Valsartan (Verified Adverse Reaction, Unknown, FAST HEART BEAT, 05/29/17) Verapamil (Verified Adverse Reaction, Unknown, GI UPSET, 05/29/17) Current Medications Reported Home Medications Medications Dose Route/Sig Max Daily Dose Days Date Category Dose Instructions Levalbuterol Tartrate Hfa (Levalbuterol Tartrate) 45 Mcg/Act Aer 2 Puff INH QID PRN 05/29/17 Reported Senna S (Sennosides-Docusate Sodium) 1 Tab Tab 1 Tab PO BID 04/16/17 Rx Glimepiride 4 Mg Tab 2 Mg PO QAM 04/09/17 Reported Trazodone (Trazodone HCl) 50 Mg Tab 50 Mg PO HS 04/09/17 Reported HAS NOT STARTED MEDICATION YET Ondansetron Odt (Ondansetron) 8 Mg Soltab 8 Mg PO TID PRN 04/09/17 Reported Proventil 0.083% 2.5MG/3ML (Albuterol Sulf) 2.5 Mg/3 Ml Nebu 2.5 Mg INH BID PRN 02/07/17 Reported Multivitamin (Multivitamins) Tab 1 Tab PO QAM 10/30/16 Reported Combivent Respimat (Ipratropium-Albuterol) 1 Aer Aer 1 Puffs INH QID 12/31/15 Reported Bentyl (Dicyclomine Hcl) 20 Mg Tab 20 Mg PO QAM 12/31/15 Reported Diltiazem Hcl Er (Diltiazem Hcl Coated Beads) 360 Mg Cap 360 Mg PO QAM 12/31/15 Reported Catapres (Clonidine Hcl) 0.1 Mg Tab 1 Tab PO DIRECTED PRN 90 07/24/15 Reported TAKE IF B/P > 170/90 Vitamin D 1000 Unit (Cholecalciferol) 1,000 Unit Cap 1,000 Inter.unit PO QAM 07/24/15 Reported Lasix (Furosemide) 40 Mg Tab 1 Tab PO DAILY 07/24/15 Reported Do not take on a regular basis. May take as needed for fluid retention (swelling of ankles or feet). Polyethylene Glycol 3350 (Polyethylene Glycol 3350 (Bulk) 1 Pow Pow 17 Gm PO DAILY PRN 30 07/24/15 Reported Oxygen Gas 4 Liter NA HS 07/24/15 Reported Azopt Oph (Brinzolamide) 1 % Tammie 1 Drops OPB BID 90 07/24/15 Reported Lumigan (Bimatoprost) 0.01 % Talia 1 Drops OPB HS 90 07/24/15 Reported Vitamin C (Ascorbic Acid) 500 Mg Cap 1 Cap PO QAM 07/24/15 Reported Iron (Ferrous Sulfate) 325 Mg Tab 1 Tab PO QAM 07/24/15 Reported Probiotic (Probiotic Product) 1 Cap Cap 1 Cap PO QAM 07/24/15 Reported Hytrin (Terazosin Hcl) 2 Mg Cap 1 Cap PO HS 07/24/15 Reported ONLY IF BP IS HIGH PER DOCTOR SCHEDULE Prilosec (Omeprazole) 20 Mg Cap 1 Cap PO BID 30 07/24/15 Reported Accolate (Zafirlukast) 20 Mg Tab 20 Mg PO QAM 07/24/15 Reported Klor-Con (Potassium Chloride) 20 Meq Tabcr 20 Meq PO DAILY 07/24/15 Reported Do not take on a regular basis. Take on days that you take furosemide (Lasix) for fluid retention. [place] 5MG/325MG (Acetaminophen/Hydrocodone Bitart) Tab 1 Tab PO Q6H PRN 30 07/24/15 Reported PRN PAIN Ultram (Tramadol HCl) 50 Mg Tab 50 Mg PO Q6H PRN 07/24/15 Reported Vital Signs Weight (Kilograms): 100 Height (Feet): 5 Height (Inches): 5 Date Time Temp Pulse Resp B/P (MAP) Pulse Ox O2 Delivery O2 Flow Rate FiO2 06/05/17 08:35 37 86 20 148/79 (102) 91 Room Air Physical Exam General Appearance: no apparent distress Respiratory/Chest: Auscultation: deminished air movement Cardiovascular: Heart Auscultation: II/ YUSEF Abdomen: Inspection & Palpation: soft Assessment and Plan Patient for colorectal cancer screening today due to a history of hematochezia. We have discussed the risks of colonoscopy to include bleeding, infection, perforation and missed colonic polyps.
--- NOTE | 2017-06-05 09:30 | Discharge Instructions ---
Endoscopy Patient Instructions Date / Procedure(s) Performed Jun 05, 2017. Colonoscopy Allergy Information Coded Allergies: Iodinated Contrast Media (Verified Allergy, Intermediate, HIVES-GI SYMPTOMS, 05/29/17) [place] (Verified Allergy, Intermediate, HIVES, 05/29/17) Bupropion (Verified Adverse Reaction, Mild, GI SYMPTOMS, 05/29/17) Enalapril (Verified Adverse Reaction, Mild, GI SYMPTOMS, 05/29/17) Escitalopram (Verified Adverse Reaction, Mild, GI SYMPTOMS, 05/29/17) Metoprolol (Verified Adverse Reaction, Mild, LOWERS PULSE RATE, 05/29/17) Lisinopril (Verified Adverse Reaction, Unknown, FAST HEART BEAT, 05/29/17) Valsartan (Verified Adverse Reaction, Unknown, FAST HEART BEAT, 05/29/17) Verapamil (Verified Adverse Reaction, Unknown, GI UPSET, 05/29/17) Discharge Date / Findings Jun 05, 2017. Diverticulosis Internal hemorrhoids Medication Instructions Stopped Medication(s): Stopped Iron 2 weeks ago,MVI week ago Reported Home Medications Medications Dose Route/Sig Max Daily Dose Days Date Category Dose Instructions Levalbuterol Tartrate Hfa (Levalbuterol Tartrate) 45 Mcg/Act Aer 2 Puff INH QID PRN 05/29/17 Reported Senna S (Sennosides-Docusate Sodium) 1 Tab Tab 1 Tab PO BID 04/16/17 Rx Glimepiride 4 Mg Tab 2 Mg PO QAM 04/09/17 Reported Trazodone (Trazodone HCl) 50 Mg Tab 50 Mg PO HS 04/09/17 Reported HAS NOT STARTED MEDICATION YET Ondansetron Odt (Ondansetron) 8 Mg Soltab 8 Mg PO TID PRN 04/09/17 Reported Proventil 0.083% 2.5MG/3ML (Albuterol Sulf) 2.5 Mg/3 Ml Nebu 2.5 Mg INH BID PRN 02/07/17 Reported Multivitamin (Multivitamins) Tab 1 Tab PO QAM 10/30/16 Reported Combivent Respimat (Ipratropium-Albuterol) 1 Aer Aer 1 Puffs INH QID 12/31/15 Reported Bentyl (Dicyclomine Hcl) 20 Mg Tab 20 Mg PO QAM 3/20/16 Reported Diltiazem Hcl Er (Diltiazem Hcl Coated Beads) 360 Mg Cap 360 Mg PO QAM 12/31/15 Reported Catapres (Clonidine Hcl) 0.1 Mg Tab 1 Tab PO DIRECTED PRN 90 07/24/15 Reported TAKE IF B/P > 170/90 Vitamin D 1000 Unit (Cholecalciferol) 1,000 Unit Cap 1,000 Inter.unit PO QAM 07/24/15 Reported Lasix (Furosemide) 40 Mg Tab 1 Tab PO DAILY 07/24/15 Reported Do not take on a regular basis. May take as needed for fluid retention (swelling of ankles or feet). Polyethylene Glycol 3350 (Polyethylene Glycol 3350 (Bulk) 1 Pow Pow 17 Gm PO DAILY PRN 30 07/24/15 Reported Oxygen Gas 4 Liter NA HS 07/24/15 Reported Azopt Oph (Brinzolamide) 1 % Tammie 1 Drops OPB BID 90 07/24/15 Reported [place] (Bimatoprost) 0.01 % Talia 1 Drops OPB HS 90 07/24/15 Reported Vitamin C (Ascorbic Acid) 500 Mg Cap 1 Cap PO QAM 07/24/15 Reported Iron (Ferrous Sulfate) 325 Mg Tab 1 Tab PO QAM 07/24/15 Reported Probiotic (Probiotic Product) 1 Cap Cap 1 Cap PO QAM 07/24/15 Reported Hytrin (Terazosin Hcl) 2 Mg Cap 1 Cap PO HS 07/24/15 Reported ONLY IF BP IS HIGH PER DOCTOR SCHEDULE Prilosec (Omeprazole) 20 Mg Cap 1 Cap PO BID 30 07/24/15 Reported Accolate (Zafirlukast) 20 Mg Tab 20 Mg PO QAM 07/24/15 Reported Klor-Con (Potassium Chloride) 20 Meq Tabcr 20 Meq PO DAILY 07/24/15 Reported Do not take on a regular basis. Take on days that you take furosemide (Lasix) for fluid retention. [place] 5MG/325MG (Acetaminophen/Hydrocodone Bitart) Tab 1 Tab PO Q6H PRN 30 07/24/15 Reported PRN PAIN Ultram (Tramadol HCl) 50 Mg Tab 50 Mg PO Q6H PRN 07/24/15 Reported Provider Instructions Activity Restrictions - No exercising or heavy lifting for 24 hours. - Do not drink alcohol the day of the procedure. - Do not drive a car or operate machinery until the day after the procedure. - Do not make any important decisions or sign important papers in 24 hours after the procedure. Following Day: - Return to full activity which may include returning to work/school. Diet Start your diet with liquids and light foods (jello, soup, juice, toast). Then eat your usual diet if not nauseated. Treatment For Common After Affects For mild abdominal pain, bloating, or excessive gas: - Rest - Eat lightly - Lie on right side Follow-Up Information Follow-up with Dr. Marcela Pinto as scheduled Repeat colonoscopy in 3 years for surveillance purposes Anesthesia Information What You Should Know You have had a procedure that required some medicine to reduce anxiety and discomfort. This treatment is called moderate sedation. After receiving the treatment, you may be sleepy, but you will be able to breathe on your own. The effects of the treatment may last for several hours. Follow these instructions along with Activity/Diet recommendations noted above: * Do NOT do anything where dizziness or clumsiness would be dangerous. * Rest quietly at home today, then you can be up and about tomorrow. * Have a responsible person stay with you the rest of today. * You may have had an I.V. today. If so, you may take the dressing off later today. Recommendations Call your doctor if: * Trouble breathing * Continuous vomiting for more than 24 hours * Temperature above 101 degrees * Severe abdominal pain or bloating * Pain not relieved by pain medicine ordered * There is increased drainage or redness from any incision * A large amount of rectal bleeding greater than 2-3 tablespoons. (If you had a polyp/s removed or have hemorrhoids, a small amount of blood - from the rectum is to be expected.) * You have any unanswered questions or concerns. IN THE EVENT OF A SERIOUS EMERGENCY, GO TO THE NEAREST EMERGENCY ROOM Your discharge instructions were prepared by provider Zulay Eagle. Patient Instructions Signature Page Nina [place] Patient (or Guardian) Signature/Date: I have read and understand the instructions given to me by my caregivers. Caregiver/RN/Doctor Signature/Date: The above-named patient and/or guardian has received patient instructions on this date. + Original Patient Signature Page (only) stays with chart. Please make copy for patient.
--- NOTE | 2017-06-05 09:47 | Anesthesiology Progress Note ---
Anesthesia Post Op Note Date & Time Jun 05, 2017 at 09:47 Vital Signs Pain Intensity: 0 Vital Signs Past 12 Hours Date Time Temp Pulse Resp B/P (MAP) Pulse Ox O2 Delivery O2 Flow Rate FiO2 06/05/17 09:28 62 18 122/55 (77) 97 Room Air 06/05/17 08:35 37 86 20 148/79 (102) 91 Room Air Notes Mental Status: alert / awake / arousable, participated in evaluation Pt Amnestic to Procedure: Yes Nausea / Vomiting: adequately controlled Pain: adequately controlled Airway Patency, RR, SpO2: stable & adequate BP & HR: stable & adequate Hydration State: stable & adequate Anesthetic Complications: no major complications apparent
[2017-06-05 09:58] VITALS: BP 130/77; PULSE 63; O2SAT 97
--- NOTE | 2017-06-06 00:14 | GI REPORT ---
Procedure Date: 06/05/2017 8:39 AM Procedure: Colonoscopy Indications: High risk colon cancer surveillance: Personal history of colonic polyps Medicines: Monitored Anesthesia Care Complications: No immediate complications. Estimated blood loss: Minimal. Estimated Blood Loss: Estimated blood loss was minimal. Procedure: Pre-Anesthesia Assessment: - Prior to the procedure, a History and Physical was performed, and patient medications, allergies and sensitivities were reviewed. The patient's tolerance of previous anesthesia was reviewed. - The risks and benefits of the procedure and the sedation options and risks were discussed with the patient. All questions were answered and informed consent was obtained. - Patient identification and proposed procedure were verified prior to the procedure by the physician, the nurse and the inside sales territory manager. The procedure was verified in the procedure room. - Pre-procedure physical examination revealed no contraindications to sedation. - ASA Grade Assessment: III - A patient with severe systemic disease. - After reviewing the risks and benefits, the patient was deemed in satisfactory condition to undergo the procedure. - The anesthesia plan was to use monitored anesthesia care (MAC). - Immediately prior to administration of medications, the patient was re-assessed for adequacy to receive sedatives. - The heart rate, respiratory rate, oxygen saturations, blood pressure, adequacy of pulmonary ventilation, and response to care were monitored throughout the procedure. - The physical status of the patient was re-assessed after the procedure. After I obtained informed consent, the scope was passed under direct vision. Throughout the procedure, the patient's blood pressure, pulse, and oxygen saturations were monitored continuously. The scope was introduced through the anus and advanced to the cecum, identified by appendiceal orifice and ileocecal valve. The colonoscopy was performed without difficulty. The patient tolerated the procedure well. The quality of the bowel preparation was adequate to identify polyps 6 mm and larger in size. Findings: The perianal and digital rectal examinations were normal. Pertinent negatives include normal sphincter tone. Multiple small and large-mouthed diverticula were found in the entire colon. Internal hemorrhoids were found during retroflexion. The hemorrhoids were mild. The exam was otherwise without abnormality. Impression: - Moderate diverticulosis in the entire examined colon. - Internal hemorrhoids. - The examination was otherwise normal. - No specimens collected. Recommendation: - Discharge patient to home (ambulatory). - Advance diet as tolerated today. - Repeat colonoscopy in 3 years for surveillance. - Return to GI office PRN. MartEstefania Garcia, 06/05/2017 9:28:42 AM This report has been signed electronically. Note Initiated On: 06/05/2017 8:39 AM I attest to the content of the Intraoperative Record and orders documented therein, exceptions below
== END | disposition home or self-care (01) ==
LOC: C.GI 08:16
PROVIDERS: ATTEND Internal Medicine Gastroenterology
DX: K92.2 Gastrointestinal hemorrhage, unspecified (principal); K55.9 Vascular disorder of intestine, unspecified; K64.8 Other hemorrhoids; Z86.010 Personal history of colon polyps; K57.30 Diverticulosis of large intestine without perforation or abscess without bleeding; E11.9 Type 2 diabetes mellitus without complications; M81.0 Age-related osteoporosis without current pathological fracture; M19.90 Unspecified osteoarthritis, unspecified site; F41.9 Anxiety disorder, unspecified; K21.9 Gastro-esophageal reflux disease without esophagitis; G47.39 Other sleep apnea; I10 Essential (primary) hypertension; J44.9 Chronic obstructive pulmonary disease, unspecified; Z90.49 Acquired absence of other specified parts of digestive tract; Z79.84 Long term (current) use of oral hypoglycemic drugs; E78.5 Hyperlipidemia, unspecified; E03.9 Hypothyroidism, unspecified; E66.9 Obesity, unspecified; H40.9 Unspecified glaucoma

== ENCOUNTER 2018-02-27 08:49 | Inpatient (IN) | payer OTHER ==
[~2018-02-27] VITALS: Ht 165.1 cm; Wt 108.4 kg
[~2018-02-27 08:49] MED LIST changes: -DILT1CAP15 PO; -ETOMIDATE 2 MG/ML 20 ML VIAL IV ONE; -EpHEDrine SULFATE 50MG/5ML SYR ONE; -LIDOCAINE HCL 2% 2 ML VIAL (20MG/ML) ONE; -ONDANSETRON INJ 2 MG/ML 2 ML VIAL IV PRN; +POTA-639 PO; -POTA20TA16 PO; -PROPOFOL IV EMULSION 10 MG/ML 20 ML VIAL IV ONE; -SODIUM CHLORIDE 0.9% 500ML 500 ML IV ONE; +[UNRECOGNIZED DRUG - CODE] PO
--- NOTE | 2018-02-27 09:06 | EMERGENCY ROOM VISIT NOTE ---
History Report prepared by Gerson: Roger Hopper Under the Supervision of: Dr. Mushtaq Martinez D.O. First contact with patient: 08:58 Chief Complaint: RECTAL BLEEDING Stated Complaint: BLEEDING FROM BOWEL History of Present Illness The patient is a 77 year old female who presents to the Emergency Room with complaints of rectal bleeding that began this morning, a few hours ago. The patient states that she is passing "a lot" of blood when she stand up. She also notes having some persistent "cramping" in her lower abdomen. She has a history of rectal bleeding. Source of History: patient Onset: A few hours ago Position: abdomen Quality: other (cramping) Timing: other (Persistent) Associated Symptoms: + hematochezia Review of Systems See HPI for pertinent positives & negatives. A total of 10 systems reviewed and were otherwise negative. Past Medical & Surgical Medical Problems: (1) Asthma (2) Carpal tunnel syndrome (3) COPD (chronic obstructive pulmonary disease) (4) Diabetes mellitus, type 2 (5) Diverticular disease of colon (6) Diverticulosis (7) Dyslipidemia (8) GI bleed (9) Hx of small bowel obstruction (10) Hypertension (11) Osteoarthritis (12) Sleep apnea Surgical Problems: (1) H/O colonoscopy (2) History of appendectomy (3) History of esophagogastroduodenoscopy (EGD) (4) History of incisional hernia repair (5) Status post cholecystectomy (6) Status post tonsillectomy (7) Status post tubal ligation Family History Cancer Diabetes mellitus Gallbladder disease Heart disease Hypertension 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 Smoking Status: Never Smoker Alcohol Use: none Drug Use: none Marital Status: Occupation Status: retired, other Current/Historical Medications Scheduled Ascorbic Acid (Vitamin C), 1 CAP PO QAM Aspirin (Aspirin), 1 TAB PO DAILY Atorvastatin (Lipitor), 20 MG PO HS Bimatoprost (Lumigan), 1 DROPS OPB HS Brinzolamide Oph (Azopt Oph), 1 DROPS OP BID Cholecalciferol (Vitamin D 1000 Unit), 1,000 INTER.UNIT PO QAM Diltiazem Hcl Coated Beads (Diltiazem Hcl Er), 360 MG PO QAM Ferrous Sulfate (Iron), 1 TAB PO QAM Glimepiride (Glimepiride), 4 MG PO QAM Glimepiride (Glimepiride), 2 MG PO HS Home O2 Therapy (Oxygen), 4 LITER NA HS Ipratropium-Albuterol (Combivent Respimat), 1 PUFFS INH QID Multivitamin (Multivitamin), 1 TAB PO QAM Omeprazole (Prilosec), 20 MG PO BID Potassium Ext Rel (Klor-Con), 20 MEQ PO DAILY Probiotic Product (Probiotic), 1 CAP PO QAM Tiotropium [place] (Spiriva Handihaler), 1 CAP INH DAILY Zafirlukast (Zafirlukast), 20 MG PO DAILY Scheduled PRN Albuterol Sulf (Proventil 0.083% 2.5MG/3ML), 2.5 MG INH BID PRN for SOB/Wheezing Furosemide (Lasix), 40 MG PO DAILY PRN for LE swelling Hydrocodone/Acetaminophen 5MG/325MG ([place] 5MG/325MG), 1 TABLET PO Q6 PRN for Pain Allergies Coded Allergies: Iodinated Contrast Media (Verified Allergy, Intermediate, HIVES-GI SYMPTOMS, 02/27/18) [place] (Verified Allergy, Intermediate, HIVES, 02/27/18) Bupropion (Verified Adverse Reaction, Mild, GI SYMPTOMS, 02/27/18) Enalapril (Verified Adverse Reaction, Mild, GI SYMPTOMS, 02/27/18) Escitalopram (Verified Adverse Reaction, Mild, GI SYMPTOMS, 02/27/18) Metoprolol (Verified Adverse Reaction, Mild, LOWERS PULSE RATE, 02/27/18) Lisinopril (Verified Adverse Reaction, Unknown, FAST HEART BEAT, 02/27/18) Valsartan (Verified Adverse Reaction, Unknown, FAST HEART BEAT, 02/27/18) Verapamil (Verified Adverse Reaction, Unknown, GI UPSET, 02/27/18) Physical Exam Vital Signs Date Time Temp Pulse Resp B/P (MAP) Pulse Ox O2 Delivery O2 Flow Rate FiO2 02/27/18 10:06 78 75 92 02/27/18 10:01 140/93 02/27/18 09:58 90 Room Air 02/27/18 09:56 138/94 02/27/18 09:49 84 15 02/27/18 09:31 143/94 02/27/18 09:19 80 20 90 02/27/18 09:18 84 02/27/18 09:16 90 Room Air 02/27/18 09:15 125/77 02/27/18 08:49 36.9 104 18 132/80 90 Room Air Physical Exam GENERAL: Patient is awake, alert, and in no acute distress. Patient is resting comfortably and showing no signs of anxiety EYES: The conjunctivae are clear. The pupils are round and reactive. EARS, NOSE, MOUTH AND THROAT: The nose is without any evidence of any deformity. Mucous membranes are moist tongue is midline NECK: The neck is nontender and supple. RESPIRATORY: Normal respiratory effort is noted there is no evidence of wheezing rhonchi or rales CARDIOVASCULAR: Regular rate and rhythm noted there no murmurs rubs or gallops normal S1 normal S2 GASTROINTESTINAL: The abdomen is soft but distended. Diffusely tender across the abdomen. Bowel sounds are present in all quadrants. MUSCULOSKELETAL/EXTREMITIES: There is no evidence of gross deformity full range of motion is noted in the hips and shoulders SKIN: There is no obvious evidence of any rash. Trace pedal edema bilaterally. There are no petechiae, pallor or cyanosis noted. NEUROLOGIC: Patient is awake alert and oriented x3 Medical Decision & Procedures ER Provider Diagnostic Interpretation: Radiology results as stated below per my review and radiologist interpretation: CHEST ONE VIEW PORTABLE HISTORY: 77 years-old Female EVALUATE ALTERED MENTAL STATUS/WEAKNESS acute weakness with altered mental status COMPARISON: Chest radiograph 02/15/2017 TECHNIQUE: Portable AP view of the chest FINDINGS: Cardiac silhouette is mildly enlarged. Atherosclerosis of the aorta. No pneumothorax, pleural effusion or overt pulmonary edema. Linear subsegmental left basilar opacities. Degenerative changes of the shoulders and spine. IMPRESSION: 1. Linear subsegmental left basilar opacities suggest atelectasis/scarring. 2. Cardiomegaly without overt pulmonary edema. The above report was generated using voice recognition software. It may contain grammatical, syntax or spelling errors. Electronically signed by: Lewis Aviles M.D. 02/27/2018 9:22 AM Dictated Date/Time: 02/27/2018 9:21 AM Laboratory Results 02/27/18 09:00 Red Blood Count 4.20, Mean Corpuscular Volume 88.8, Mean Corpuscular Hemoglobin 28.6, Mean Corpuscular Hemoglobin Concent 32.2, Mean Platelet Volume 9.2, Neutrophils (%) (Auto) 57.0, Lymphocytes (%) (Auto) 30.1, Monocytes (%) (Auto) 8.7, Eosinophils (%) (Auto) 3.7, Basophils (%) (Auto) 0.3, Neutrophils # (Auto) 7.43, Lymphocytes # (Auto) 3.94, Monocytes # (Auto) 1.14, Eosinophils # (Auto) 0.49, Basophils # (Auto) 0.04 02/27/18 09:00 Test 02/27/18 09:00 White Blood Count 13.07 K/uL (4.8-10.8) Red Blood Count 4.20 M/uL (4.2-5.4) Hemoglobin 12.0 g/dL (12.0-16.0) Hematocrit 37.3 % (37-47) Mean Corpuscular Volume 88.8 fL (80-100) Mean Corpuscular Hemoglobin 28.6 pg (25-34) Mean Corpuscular Hemoglobin Concent 32.2 g/dl (32-36) Platelet Count 373 K/uL (130-400) Mean Platelet Volume 9.2 fL (7.4-10.4) Neutrophils (%) (Auto) 57.0 % Lymphocytes (%) (Auto) 30.1 % Monocytes (%) (Auto) 8.7 % Eosinophils (%) (Auto) 3.7 % Basophils (%) (Auto) 0.3 % Neutrophils # (Auto) 7.43 K/uL (1.4-6.5) Lymphocytes # (Auto) 3.94 K/uL (1.2-3.4) Monocytes # (Auto) 1.14 K/uL (0.11-0.59) Eosinophils # (Auto) 0.49 K/uL (0-0.5) Basophils # (Auto) 0.04 K/uL (0-0.2) RDW Standard Deviation 46.4 fL (36.4-46.3) RDW Coefficient of Variation 14.3 % (11.5-14.5) Immature Granulocyte % (Auto) 0.2 % Immature Granulocyte # (Auto) 0.03 K/uL (0.00-0.02) Prothrombin Time 10.1 SECONDS (9.0-12.0) Prothromb Time International Ratio 1.0 (0.9-1.1) Activated Partial Thromboplast Time 25.9 SECONDS (21.0-31.0) Partial Thromboplastin Ratio 1.0 Anion Gap 6.0 mmol/L (3-11) Est Creatinine Clear Calc Drug Dose 56.9 ml/min Estimated GFR () 62.8 Estimated GFR (Non- 54.2 BUN/Creatinine Ratio 11.9 (10-20) Calcium Level 9.1 mg/dl (8.5-10.1) Magnesium Level 1.9 mg/dl (1.8-2.4) Total Bilirubin 0.4 mg/dl (0.2-1) Direct Bilirubin < 0.1 mg/dl (0-0.2) Aspartate Amino Transf (AST/SGOT) 13 U/L (15-37) Alanine Aminotransferase (ALT/SGPT) 15 U/L (12-78) Alkaline Phosphatase 122 U/L (45-117) Troponin I < 0.015 ng/ml (0-0.045) Pro-B-Type Natriuretic Peptide 389 pg/ml (0-1800) Total Protein 8.3 gm/dl (6.4-8.2) Albumin 3.8 gm/dl (3.4-5.0) Thyroid Stimulating Hormone (TSH) 0.927 uIu/ml (0.300-4.500) Laboratory results per my review. ECG Per My Interpretation Indication: other (Bleeding) Rate (beats per minute): 80 Findings: other (No FERNANDO/STD, LVH noted by voltage criteria. ) ED Course 0900: The patient was evaluated in room B9. A complete history and physical examination were performed. 0941: I discussed the case with Jaymie Walton [facility] Hospitalist KRISTA Shaffer. She will evaluate the patient for further treatment. Medical Decision Differential diagnosis: Etiologies such as diverticulosis, AVM, coagulopathy, colitis, inflammatory bowel disease, malignancy, Yesika-Moreno tear, esophagitis, peptic ulcer disease , variceal bleed, gastritis, epistaxis, fissure, hemorrhoids, as well as others were entertained. Nursing notes reviewed. The patient is a 77-year-old female who presented to the emergency department for an evaluation of rectal bleeding. The patient had multiple episodes of bright red per rectum. The patient had an acceptable hemoglobin. She has had a history of GI bleeding in the past requiring multiple transfusions. The patient's physical exam was not consistent with an acute surgical abdomen however she does have a history of diverticulosis. I discussed patient's laboratory and radiographic studies with her. I also discussed her case with the on-call [facility] group. They have agreed to evaluate the patient in the emergency department for further management and disposition. Consults Time Called: [phone] Consulting Physician: Jaymie Perdue [facility] RE[facility] Returned Call: [phone] [facility] She will evaluate the patient for further treatment. Impression Primary Impression: Lower GI bleed Additional Impression: Diverticulosis Scribe Attestation The scribe's documentation has been prepared under my direction and personally reviewed by me in its entirety. I confirm that the note above accurately reflects all work, treatment, procedures, and medical decision making performed by me. Departure Information Dispostion Being Evaluated By Hospitalist Referrals Marcela Pinto M.D. (PCP) Patient Instructions My [facility] Problem Qualifiers Additional Impression: Diverticulosis Diverticulosis site: unspecified location Diverticulosis bleeding: diverticulosis with bleeding Qualified Codes: K57.91 - Diverticulosis of intestine, part unspecified, without perforation or abscess with bleeding
[2018-02-27 09:19] LABS: HEMATOCRIT 37.3 % (37-47); MEAN CELL VOLUME 88.8 fL (80-100); MEAN CORPUSCULAR HEMOGLOBIN 28.6 pg (25-34); MEAN CORPUSCULAR HGB CONC 32.2 g/dl (32-36); MEAN PLATELET VOLUME 9.2 fL (7.4-10.4); PLATELET COUNT 373 K/uL (130-400); RED CELL DISTRIBUTION WIDTH CV 14.3 % (11.5-14.5); RED CELL DISTRIBUTION WIDTH SD 46.4 fL (36.4-46.3); WHITE BLOOD COUNT 13.07 K/uL (4.8-10.8)
--- NOTE | 2018-02-27 09:23 | DIAGNOSTIC IMAGING REPORT ---
CHEST ONE VIEW PORTABLE HISTORY: 77 years-old Female EVALUATE ALTERED MENTAL STATUS/WEAKNESS acute weakness with altered mental status COMPARISON: Chest radiograph 02/15/2017 TECHNIQUE: Portable AP view of the chest FINDINGS: Cardiac silhouette is mildly enlarged. Atherosclerosis of the aorta. No pneumothorax, pleural effusion or overt pulmonary edema. Linear subsegmental left basilar opacities. Degenerative changes of the shoulders and spine. IMPRESSION: 1. Linear subsegmental left basilar opacities suggest atelectasis/scarring. 2. Cardiomegaly without overt pulmonary edema. The above report was generated using voice recognition software. It may contain grammatical, syntax or spelling errors. Electronically signed by: Lewis Aviles M.D. 02/27/2018 9:22 AM Dictated Date/Time: 02/27/2018 9:21 AM
[2018-02-27 09:29] LABS: PTT PATIENT 25.9 SECONDS (21.0-31.0)
[2018-02-27] MEDS ORDERED: BRIM0.1S OP (09:32)
[2018-02-27] MEDS ORDERED: ATOR-22 PO (09:32)
[2018-02-27] MEDS ORDERED: SYMIN160 (09:34)
[2018-02-27] MEDS ORDERED: SPRIN/30 INH (09:34)
[2018-02-27] MEDS ORDERED: ZAFI1TAB11 PO (09:34)
[2018-02-27] MEDS ORDERED: GLIM4TAB2 PO (09:41)
[2018-02-27 09:48] LABS: ALBUMIN 3.8 gm/dl (3.4-5.0); ALKALINE PHOSPHATASE 122 U/L (45-117); ALT/SGPT 15 U/L (12-78); AST/SGOT 13 U/L (15-37); BLOOD UREA NITROGEN 12 mg/dl (7-18); CALCIUM 9.1 mg/dl (8.5-10.1); CARBON DIOXIDE 29 mmol/L (21-32); CREATININE 0.99 mg/dl (0.60-1.20); GLUCOSE 152 mg/dl (70-99); POTASSIUM 3.9 mmol/L (3.5-5.1); SODIUM 138 mmol/L (136-145); TOTAL PROTEIN 8.3 gm/dl (6.4-8.2)
[2018-02-27 09:58] VITALS: O2SAT 90; Ht 165.1 cm; Wt 108.4 kg
[2018-02-27 10:02] LABS: BASO % 0.3 %; BASO ABS # 0.04 K/uL (0-0.2); EOS % 3.7 %; EOS ABS # 0.49 K/uL (0-0.5); IG# 0.03 K/uL (0.00-0.02); LYMPH % 30.1 %; LYMPH ABS # 3.94 K/uL (1.2-3.4); MONO % 8.7 %; MONO ABS # 1.14 K/uL (0.11-0.59); NEUT ABS # 7.43 K/uL (1.4-6.5)
[2018-02-27] MEDS ORDERED: NITROGLYCERIN 0.4 MG SL PER TAB CHARGE SL PRN (10:30)
[2018-02-27] MEDS ORDERED: ACETAMINOPHEN 325 MG TAB PO PRN (10:30)
[2018-02-27] MEDS ORDERED: HYDR-5688 PO (10:58)
[2018-02-27] MEDS ORDERED: ASPI1TAB83 PO (10:58)
[2018-02-27] MEDS ORDERED: BRIN1SUS OP (10:58)
[2018-02-27] MEDS ORDERED: GLUCAGON FOR INJ 1 MG VIAL SQ PRN (11:00)
[2018-02-27] MEDS ORDERED: DEXTROSE 50% 50 ML SYR IV PRN (11:00)
[2018-02-27] MEDS ORDERED: CARBOHYDRATES FOR HYPOGLYCEMIA PO PRN (11:00)
[2018-02-27] MEDS ORDERED: GLUCOSE 40% GEL 15 GM TUBE PO PRN (11:00)
[2018-02-27] MEDS ORDERED: GLUCOSE 10 TABS/TUBE PO PRN (11:00)
[2018-02-27 11:40] VITALS: BP 127/97; PULSE 89; TEMP 36.9; O2SAT 92
--- NOTE | 2018-02-27 11:44 | History and Physical ---
History & Physical Date & Time of Service: February 27, 2018 at 11:11 Chief Complaint: Bleeding From Bowel Primary Care Physician: Marcela Pinto M.D. History of Present Illness Source: patient, clinic records, hospital records Pt is 77 y/o F with PMH GI bleed, diverticulosis, GERD, DM II, asthma, COPD, deep apnea, oxygen dependent at 4L at bedtime and as needed, HTN presented to ER with complaint of rectal bleeding. Patient states this morning had some cramping to lower abdomen felt like she was going to have diarrhea and when she went to toilet had diffuse breath rectal bleeding and thinks had some stool mixed in. Patient additional 1-2 times of bright red rectal bleeding this morning. She reports left lower abdominal aching for the past week denies increased abdominal pain today. reports history of constipation and uses MiraLAX and senna daily. States last BM yesterday which was normal without noted blood or melena and patient denies straining. History colonoscopy 06/05/17 : Diverticulosis, internal hemorrhoids. Patient with history of previous hospitalizations for rectal bleeding requiring PRBC transfusions. Most recent hospitalization for rectal bleeding in 04/2017 no transfusion needed at that time. Patient reports history of SBO in 11/2017 requiring surgery at [facility]. Denies any current dizziness, denies syncope. Patient reports to not take any of her medications yet today. Has been n.p.o. since 10:30 PM last night when she had cereal. Hx LE edema at end of day, denies worsening LE edema. Denies fever/chills, diaphoresis, N/V, GRAVES, vision changes, neck pain, CP, SOB, orthopnea, palpitations, cough, sore throat, choking, otalgia, rhinorrhea, weakness, rashes, urinary symptoms, weight changes. Past Medical/Surgical History Medical Problems: (1) Asthma Status: Chronic (2) Carpal tunnel syndrome Status: Chronic (3) COPD (chronic obstructive pulmonary disease) Status: Chronic (4) Diabetes mellitus, type 2 Status: Chronic (5) Diverticular disease of colon Status: Chronic (6) Diverticulosis Status: Chronic (7) Dyslipidemia Status: Chronic (8) Hx of small bowel obstruction Permanent Comment: 11/2017 - Seen [facility] - surgical intervention Status: Resolved (9) Hypertension Status: Chronic (10) Osteoarthritis Status: Chronic (11) Sleep apnea Status: Chronic Surgical Problems: (1) H/O colonoscopy Permanent Comment: 04/2014 - diverticular disease throughout colon, internal hemorrhoids, polyp removed Status: Chronic (2) History of appendectomy Status: Chronic (3) History of esophagogastroduodenoscopy (EGD) Permanent Comment: 04/2014 - normal Status: Chronic (4) History of incisional hernia repair Status: Chronic (5) Status post cholecystectomy Status: Chronic (6) Status post tonsillectomy Status: Chronic (7) Status post tubal ligation Status: Chronic Family History Cancer Diabetes mellitus Gallbladder disease Heart disease Hypertension 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 Smoking Status: Never Smoker Smokeless Tobacco Use: No Alcohol Use: none Drug Use: none Marital Status: 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, other Immunizations History of Influenza Vaccine: Yes Influenza Vaccine Date: Jul 14, 2015 History of Tetanus Vaccine?: Yes Tetanus Immunization Date: February 28, 2009 History of Pneumococcal: Yes Pneumococcal Date: Mar 18, 2015 Allergies Coded Allergies: Iodinated Contrast [place] (Verified Allergy, Intermediate, HIVES-GI SYMPTOMS, 02/27/18) [place] (Verified Allergy, Intermediate, HIVES, 02/27/18) Bupropion (Verified Adverse Reaction, Mild, GI SYMPTOMS, 02/27/18) Enalapril (Verified Adverse Reaction, Mild, GI SYMPTOMS, 02/27/18) Escitalopram (Verified Adverse Reaction, Mild, GI SYMPTOMS, 02/27/18) Metoprolol (Verified Adverse Reaction, Mild, LOWERS PULSE RATE, 02/27/18) Lisinopril (Verified Adverse Reaction, Unknown, FAST HEART BEAT, 02/27/18) Valsartan (Verified Adverse Reaction, Unknown, FAST HEART BEAT, 02/27/18) Verapamil (Verified Adverse Reaction, Unknown, GI UPSET, 02/27/18) Home Medications Scheduled Ascorbic Acid (Vitamin C), 1 CAP PO QAM Aspirin (Aspirin), 1 TAB PO DAILY Atorvastatin (Lipitor), 20 MG PO HS Bimatoprost (Lumigan), 1 DROPS OPB HS Brinzolamide Oph (Azopt Oph), 1 DROPS OP BID Cholecalciferol (Vitamin D 1000 Unit), 1,000 INTER.UNIT PO QAM Diltiazem Hcl Coated Beads (Diltiazem Hcl Er), 360 MG PO QAM Ferrous Sulfate (Iron), 1 TAB PO QAM Glimepiride (Glimepiride), 4 MG PO QAM Glimepiride (Glimepiride), 2 MG PO HS Home O2 Therapy (Oxygen), 4 LITER NA HS Ipratropium-Albuterol (Combivent Respimat), 1 PUFFS INH QID Multivitamin (Multivitamin), 1 TAB PO QAM Omeprazole (Prilosec), 20 MG PO BID Potassium Ext Rel (Klor-Con), 20 MEQ PO DAILY Probiotic Product (Probiotic), 1 CAP PO QAM Tiotropium [place] (Spiriva Handihaler), 1 CAP INH DAILY Zafirlukast (Zafirlukast), 20 MG PO DAILY Scheduled PRN Albuterol Sulf (Proventil 0.083% 2.5MG/3ML), 2.5 MG INH BID PRN for SOB/Wheezing Furosemide (Lasix), 40 MG PO DAILY PRN for LE swelling Hydrocodone/Acetaminophen 5MG/325MG ([place] 5MG/325MG), 1 TABLET PO Q6 PRN for Pain Review of Systems See HPI for pertinent positives & negatives. All other systems reviewed and were otherwise negative Physical Exam Vital Signs Date Time Temp Pulse Resp B/P (MAP) Pulse Ox O2 Delivery O2 Flow Rate FiO2 02/27/18 11:00 36.9 72 22 132/80 90 02/27/18 10:36 72 22 90 02/27/18 10:31 132/80 02/27/18 10:06 78 75 92 02/27/18 10:01 140/93 02/27/18 09:58 90 Room Air 02/27/18 09:56 138/94 02/27/18 09:49 84 15 02/27/18 09:31 143/94 02/27/18 09:19 80 20 90 02/27/18 09:18 84 02/27/18 09:16 90 Room Air 02/27/18 09:15 125/77 02/27/18 08:49 36.9 104 18 132/80 90 Room Air General Appearance: no apparent distress, + obese Head: normocephalic, atraumatic Eyes: normal inspection, PERRL, sclerae normal ENT: TMs normal, pharynx normal, + pertinent finding (mucous membranes moist) Neck: supple, no JVD, trachea midline Respiratory/Chest: lungs clear, normal breath sounds (no wheezing/rhonchi/rales ), no respiratory distress Cardiovascular: regular rate, rhythm, normal peripheral pulses Abdomen/GI: normal bowel sounds, soft, + pertinent finding (slight tenderness to palpation lower abdomen without rebound, guarding) Back: no CVA tenderness Extremities/Musculoskelatal: no calf tenderness, normal capillary refill, no pedal edema Neurologic/Psych: alert, normal mood/affect, oriented x 3 Skin: warm/dry Diagnostics Laboratory Results Results Past 24 Hours Test 02/27/18 09:00 Range/Units White Blood Count 13.07 4.8-10.8 K/uL Red Blood Count 4.20 4.2-5.4 M/uL Hemoglobin 12.0 12.0-16.0 g/dL Hematocrit 37.3 37-47 % Mean Corpuscular Volume 88.8 80-100 fL Mean Corpuscular Hemoglobin 28.6 25-34 pg Mean Corpuscular Hemoglobin Concent 32.2 32-36 g/dl Platelet Count 373 130-400 K/uL Mean Platelet Volume 9.2 7.4-10.4 fL Neutrophils (%) (Auto) 57.0 % Lymphocytes (%) (Auto) 30.1 % Monocytes (%) (Auto) 8.7 % Eosinophils (%) (Auto) 3.7 % Basophils (%) (Auto) 0.3 % Neutrophils # (Auto) 7.43 1.4-6.5 K/uL Lymphocytes # (Auto) 3.94 1.2-3.4 K/uL Monocytes # (Auto) 1.14 0.11-0.59 K/uL Eosinophils # (Auto) 0.49 0-0.5 K/uL Basophils # (Auto) 0.04 0-0.2 K/uL RDW Standard Deviation 46.4 36.4-46.3 fL RDW Coefficient of Variation 14.3 11.5-14.5 % Immature Granulocyte % (Auto) 0.2 % Immature Granulocyte # (Auto) 0.03 0.00-0.02 K/uL Prothrombin Time 10.1 9.0-12.0 SECONDS Prothromb Time International Ratio 1.0 0.9-1.1 Activated Partial Thromboplast Time 25.9 21.0-31.0 SECONDS Partial Thromboplastin Ratio 1.0 Sodium Level 138 136-145 mmol/L Potassium Level 3.9 3.5-5.1 mmol/L Chloride Level 103 98-107 mmol/L Carbon Dioxide Level 29 21-32 mmol/L Anion Gap 6.0 3-11 mmol/L Blood Urea Nitrogen 12 7-18 mg/dl Creatinine 0.99 0.60-1.20 mg/dl Est Creatinine Clear Calc Drug Dose 56.9 ml/min Estimated GFR () 62.8 Estimated GFR (Non- 54.2 BUN/Creatinine Ratio 11.9 10-20 Random Glucose 152 70-99 mg/dl Calcium Level 9.1 8.5-10.1 mg/dl Magnesium Level 1.9 1.8-2.4 mg/dl Total Bilirubin 0.4 0.2-1 mg/dl Direct Bilirubin < 0.1 0-0.2 mg/dl Aspartate Amino Transf (AST/SGOT) 13 15-37 U/L Alanine Aminotransferase (ALT/SGPT) 15 12-78 U/L Alkaline Phosphatase 122 45-117 U/L Troponin I < 0.015 0-0.045 ng/ml Pro-B-Type Natriuretic Peptide 389 0-1800 pg/ml Total Protein 8.3 6.4-8.2 gm/dl Albumin 3.8 3.4-5.0 gm/dl Thyroid Stimulating Hormone (TSH) 0.927 0.300-4.500 uIu/ml Diagnostic Radiology CXR: IMPRESSION: 1. Linear subsegmental left basilar opacities suggest atelectasis/scarring. 2. Cardiomegaly without overt pulmonary edema. EKG EKG: NSR, rate 80, L anterior fascicular block, LVH Impression Assessment and Plan LOWER GI BLEED Pt hx GI bleed/colitis in past, presented to ER with c/o BRRB this am x 2-3 episodes with associated lower abdominal aching. In ER pt vitals stable with BP : 132/80, P: 84, afebrile, R: 18. WBC: 13. Hgb: 12. -Hx colonoscopy 05/2017 revealing diverticulosis and internal hemorrhoids -NPO -gentle IVF -Type and cross PRBCs, on hold -H&H Q4H -GI consult appreciate input -holding on CT abd/pelvis at this time at direction of GI -holding pt's aspirin -CBC, CMP in am ASTHMA/COPD No wheezing, rhonchi, rales, no CP/SOB. 92% on RA. CXR: L basilar opacities probable atelectasis/scaring which similar to previous CXR in 2017 -continue to monitor, does not appear like acute pneumonia at this time -continue oxygen 4L NC HS and prn needed -continue spiriva, zafirlukast, duonebs DM II Glucose: 152. HA1c 6.2 on 01/14/18 -hold glimepiride -Novolog sliding scale per protocol HTN Stable, continue to monitor -continue diltiazem -hold lasix GERD -continue PPI DVT Prophylaxis -SCDs with pt's GI bleeding Disposition admit tele Full Code as per discussion with pt Follows with Dr Marcela Pinto for routine care Pt was seen with Dr Sunshine. See addendum Dr. Sunshine: Attending physician addendum. I have seen and examined the patient and agree with the assessment and plan as above. Patient is admitted for GI bleed. On exam she is awake and alert, abdomen soft, nontender, bowel sounds present. She is awake and alert and breathing comfortably on room air. Since she has been sent to medical [place] her vitals are stable. However, patient reports that she still has blood from backside and this has not completely resolved. Patient has colonoscopy prep at bedside and advised by GI to take the prep for possible colonoscopy tomorrow. Will trend CBC and transfuse if needed. Awaiting further gastroenterology recommendations by tomorrow Advanced Directives Existing Living Will: No Existing Power of [employer] Room Servicer: No Resuscitation Status VTE Prophylaxis Will order VTE Prophylaxis: Yes Additional Copies To Marcela Pinto M.D.
[2018-02-27] MEDS: ALBUT/IPRATROP 3MG/0.5MG NEB 3 ML VIAL INH SCH ×3 (12:00→19:56)
[2018-02-27] MEDS: SODIUM CHLORIDE 0.9% 1000ML 1,000 ML IV SCH ×2 (12:16→22:07)
[2018-02-27 12:39] LABS: HEMATOCRIT 34.3 % (37-47); HEMOGLOBIN 11.3 g/dL (12.0-16.0)
[2018-02-27] MEDS: HYDROCODONE/ACETAMIN 5/325MG TAB PO PRN ×2 (12:39→22:06)
[2018-02-27] MEDS: INSULIN ASPART 100 UNITS/ML 3 ML PEN SC SCH ×3 (12:40→20:12)
[2018-02-27] MEDS ORDERED: BISACODYL 5 MG TABEC PO ONE (15:30)
[2018-02-27] MEDS ORDERED: LAVAGE SOLUTION 4000ML PO SCH (15:30)
[2018-02-27 15:34] VITALS: BP 132/69; PULSE 64; TEMP 37.2; O2SAT 91
[2018-02-27 15:37] VITALS: PULSE 75; O2SAT 93
--- NOTE | 2018-02-27 15:42 | Gastrointestinal Consultation ---
Gastrointestinal Consultation Date of Consultation: February 27, 2018 Attending Physician: Dr. Sunshine Consulting Physician: Dr. Carrillo Reason for Consultation: Rectal Bleeding History of Present Illness Patient is a 77 year old female patient of Dr. Marcela Pinto with a hx of GERD, HTN, asthma, COPD/oxygen dependent, DM-2, HTN, Sleep apnea who presented to the ED today for rectal bleeding. GI is consulted regarding the rectal bleed. Ms. Harrington reports mild diffuse cramping abdominal discomfort over the past month but no significant abdominal pain. She experienced several large bloody BMs this morning, then 3 more arrival here. On arrival, Hb was 13.07/Hct 37. WBC 13. Her most recent colonoscopy was May 2017 with diverticulosis and internal hemorrhoids during an episode of similar rectal bleeding. Past Medical/Surgical History Medical Problems: (1) Abdominal pain Status: Acute (2) Central abdominal pain Status: Acute (3) Chest pain Status: Acute (4) Chest pain Status: Acute (5) Colitis Status: Acute (6) Diverticulosis Status: Chronic (7) Leukocytosis Status: Acute (8) Lower GI bleed Status: Acute (9) Lower GI bleed Status: Acute (10) Nausea Status: Acute Past Medical History: (1) Asthma (2) Carpal tunnel syndrome (3) COPD (chronic obstructive pulmonary disease) (4) Diabetes mellitus, type 2 (5) Diverticular disease of colon (6) Dyslipidemia (7) Hx of small bowel obstruction 11/2017 - [facility] - surgical intervention (8) Hypertension (9) Osteoarthritis (10) Sleep apnea Past Surgical History: (1) H/O colonoscopy 04/2014 - diverticular disease throughout colon, internal hemorrhoids, polyp removed (2) History of appendectomy (3) History of esophagogastroduodenoscopy (EGD) (4) History of incisional hernia repair (5) Status post cholecystectomy (6) Status post tonsillectomy (7) Status post tubal ligation Family History Cancer Diabetes mellitus Gallbladder disease Heart disease Hypertension 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 Smoking Status: Never Smoker Alcohol Use: none Drug Use: none Marital Status: Occupation Status: retired, other Allergies Coded Allergies: Iodinated Contrast [place] (Verified Allergy, Intermediate, HIVES-GI SYMPTOMS, 02/27/18) [place] (Verified Allergy, Intermediate, HIVES, 02/27/18) Bupropion (Verified Adverse Reaction, Mild, GI SYMPTOMS, 02/27/18) Enalapril (Verified Adverse Reaction, Mild, GI SYMPTOMS, 02/27/18) Escitalopram (Verified Adverse Reaction, Mild, GI SYMPTOMS, 02/27/18) Metoprolol (Verified Adverse Reaction, Mild, LOWERS PULSE RATE, 02/27/18) Lisinopril (Verified Adverse Reaction, Unknown, FAST HEART BEAT, 02/27/18) Valsartan (Verified Adverse Reaction, Unknown, FAST HEART BEAT, 02/27/18) Verapamil (Verified Adverse Reaction, Unknown, GI UPSET, 02/27/18) Current Medications Home Meds and Scripts Medications Dose Route/Sig Max Daily Dose Days Date Category Azopt Oph (Brinzolamide) 1 % Tammie 1 Drops OP BID 90 02/27/18 Reported [place] 5MG/325MG (Acetaminophen/Hydrocodone Bitart) Tab 1 Tablet PO Q6 PRN 02/27/18 Reported Aspirin 81 Mg Tab 1 Tab PO DAILY 30 02/27/18 Reported Glimepiride 4 Mg Tab 2 Mg PO HS 02/27/18 Reported Spiriva Handihaler (Tiotropium [place]) 30 Puff/540 Mcg Aerp 1 Cap INH DAILY 02/27/18 Reported Zafirlukast 20 Mg Tab 20 Mg PO DAILY 02/27/18 Reported Lipitor (Atorvastatin Calcium) 20 Mg Tab 20 Mg PO HS 02/27/18 Reported Glimepiride 4 Mg Tab 4 Mg PO QAM 04/09/17 Reported Proventil 0.083% 2.5MG/3ML (Albuterol Sulf) 2.5 Mg/3 Ml Nebu 2.5 Mg INH BID PRN 02/07/17 Reported Multivitamin (Multivitamins) Tab 1 Tab PO QAM 10/30/16 Reported Combivent Respimat (Ipratropium-Albuterol) 1 Aer Aer 1 Puffs INH QID 12/31/15 Reported Diltiazem Hcl Er (Diltiazem Hcl Coated Beads) 360 Mg Cap 360 Mg PO QAM 12/31/15 Reported Vitamin D 1000 Unit (Cholecalciferol) 1,000 Unit Cap 1,000 Inter.unit PO QAM 07/24/15 Reported Lasix (Furosemide) 40 Mg Tab 40 Mg PO DAILY PRN 07/24/15 Reported Oxygen Gas 4 Liter NA HS 07/24/15 Reported [place] (Bimatoprost) 0.01 % Talia 1 Drops OPB HS 90 07/24/15 Reported Vitamin C (Ascorbic Acid) 500 Mg Cap 1 Cap PO QAM 07/24/15 Reported Iron (Ferrous Sulfate) 325 Mg Tab 1 Tab PO QAM 07/24/15 Reported Probiotic (Probiotic Product) 1 Cap Cap 1 Cap PO QAM 07/24/15 Reported Prilosec (Omeprazole) 20 Mg Cap 20 Mg PO BID 07/24/15 Reported Klor-Con (Potassium Chloride) 20 Meq Tabcr 20 Meq PO DAILY 07/24/15 Reported Review of Systems Constitutional: No fever, No chills, No sweats, No weight loss, No weakness Eyes: No eye pain, No redness ENT: No sore throat, No trouble swallowing, No pain on swallowing Respiratory: No cough, No wheezing, No shortness of breath, No dyspnea on exertion Cardiac: No chest pain, No edema, No palpitations Abdomen: + see HPI, + pain (mild, bilat lower), + diarrhea, + GI bleeding Neuro: No memory loss, No weakness, No numbness/tingling, No vertigo, No balance problems Psych: No depression symptoms, No anxiety, No insomnia Heme: No abnormal bleeding/bruising, No night sweats Endo: No excessive thirst, No excessive urination Skin: No rash, No itch, No new/changing skin lesions, No jaundice Physical Exam Date Time Temp Pulse Resp B/P (MAP) Pulse Ox O2 Delivery O2 Flow Rate FiO2 02/27/18 11:40 36.9 89 16 127/97 (107) 92 Room Air 02/27/18 11:00 36.9 72 22 132/80 90 02/27/18 10:36 72 22 90 02/27/18 10:31 132/80 02/27/18 10:06 78 75 92 02/27/18 10:01 140/93 02/27/18 09:58 90 Room Air 02/27/18 09:56 138/94 02/27/18 09:49 84 15 02/27/18 09:31 143/94 02/27/18 09:19 80 20 90 02/27/18 09:18 84 02/27/18 09:16 90 Room Air 02/27/18 09:15 125/77 02/27/18 08:49 36.9 104 18 132/80 90 Room Air General Appearance: no apparent distress Eyes: normal inspection, EOMI Neck: supple, no adenopathy, thyroid normal Respiratory/Chest: chest non-tender, lungs clear, normal breath sounds, no accessory muscle use Cardiovascular: regular rate, rhythm, no JVD, no murmur Abdomen: normal bowel sounds, non tender, soft, no organomegaly Extremities: normal inspection, no pedal edema, normal capillary refill Neurologic/Psych: alert, normal mood/affect, oriented x 3 Skin: normal color, no jaundice, warm/dry, no rash Laboratory Results Last 24 Hours Test 02/27/18 09:00 White Blood Count 13.07 K/uL Red Blood Count 4.20 M/uL Hemoglobin 12.0 g/dL Hematocrit 37.3 % Mean Corpuscular Volume 88.8 fL Mean Corpuscular Hemoglobin 28.6 pg Mean Corpuscular Hemoglobin Concent 32.2 g/dl Platelet Count 373 K/uL Mean Platelet Volume 9.2 fL Neutrophils (%) (Auto) 57.0 % Lymphocytes (%) (Auto) 30.1 % Monocytes (%) (Auto) 8.7 % Eosinophils (%) (Auto) 3.7 % Basophils (%) (Auto) 0.3 % Neutrophils # (Auto) 7.43 K/uL Lymphocytes # (Auto) 3.94 K/uL Monocytes # (Auto) 1.14 K/uL Eosinophils # (Auto) 0.49 K/uL Basophils # (Auto) 0.04 K/uL RDW Standard Deviation 46.4 fL RDW Coefficient of Variation 14.3 % Immature Granulocyte % (Auto) 0.2 % Immature Granulocyte # (Auto) 0.03 K/uL Prothrombin Time 10.1 SECONDS Prothromb Time International Ratio 1.0 Activated Partial Thromboplast Time 25.9 SECONDS Partial Thromboplastin Ratio 1.0 Sodium Level 138 mmol/L Potassium Level 3.9 mmol/L Chloride Level 103 mmol/L Carbon Dioxide Level 29 mmol/L Anion Gap 6.0 mmol/L Blood Urea Nitrogen 12 mg/dl Creatinine 0.99 mg/dl Est Creatinine Clear Calc Drug Dose 56.9 ml/min Estimated GFR () 62.8 Estimated GFR (Non- 54.2 BUN/Creatinine Ratio 11.9 Random Glucose 152 mg/dl Calcium Level 9.1 mg/dl Magnesium Level 1.9 mg/dl Total Bilirubin 0.4 mg/dl Direct Bilirubin < 0.1 mg/dl Aspartate Amino Transf (AST/SGOT) 13 U/L Alanine Aminotransferase (ALT/SGPT) 15 U/L Alkaline Phosphatase 122 U/L Troponin I < 0.015 ng/ml Pro-B-Type Natriuretic Peptide 389 pg/ml Total Protein 8.3 gm/dl Albumin 3.8 gm/dl Thyroid Stimulating Hormone (TSH) 0.927 uIu/ml Impression Patient is a 77 year old female with an episode of rectal bleeding. Most likely this represents diverticular versus hemorrhoidal. Also considered is ischemic colitis, less likely as she has only a minimal elevation in her white blood cell count and does not have significant abdominal pain. Plan 1. We will prep for colonoscopy tomorrow. If bleeding stops may defer. 2. Clear liquids p.o. today. I performed a history and physical examination of the patient, including specifically no tenderness on exam. I have discussed the patient's management with To Cueva. Please refer to the [employer]ER's note for the documented findings and plan of care. Rectal bleeding with recent colonoscopy in 05/2017 showed extensive diverticulosis, likely diverticular bleed. Prep with Golytely. if bleeding clears and stops will discuss with patient to defer. If continue will do colonoscopy tomorrow.
[2018-02-27 19:56] VITALS: BP 155/85; PULSE 67; PULSE 72; TEMP 36.9; O2SAT 90; O2SAT 93
[2018-02-27 20:00] VITALS: O2SAT 93
[2018-02-27 20:07] LABS: HEMATOCRIT 34.2 % (37-47); HEMOGLOBIN 10.9 g/dL (12.0-16.0)
[2018-02-27] MEDS: PANTOprazole SOD 40 MG TAB PO SCH (20:27)
[2018-02-27] MEDS: BRINZOLAMIDE (AZOPT) OPS 10 ML BTL OP SCH (20:28)
[2018-02-27] MEDS: BIMATOPROST 0.01% OP SOLN 2.5 ML BTL OPB SCH (20:28)
[2018-02-27] MEDS ORDERED: PROCHLORPERAZINE INJ 5 MG in SYRINGE 4 ML IV PRN (20:45)
--- NOTE | 2018-02-27 21:29 | DIAGNOSTIC IMAGING REPORT ---
CT SCAN OF THE ABDOMEN AND PELVIS WITHOUT CONTRAST CLINICAL HISTORY: Generalized abdominal pain COMPARISON STUDY: 04/09/2017 TECHNIQUE: CT scan of the abdomen and pelvis was performed from the lung bases to the proximal femurs. Images are reviewed in the axial, sagittal, and coronal planes. IV contrast was not administered for this examination. A dose lowering technique was utilized adhering to the principles of ALARA. CT DOSE: 1445.66 mGy.cm FINDINGS: Lower chest: There is left lower lobe atelectasis/scarring. There are no pleural effusions Liver: The unenhanced liver is normal in size, contour, and attenuation. There is no intrahepatic biliary ductal dilatation. Gallbladder: Not visualized and presumed surgically absent Spleen: Normal in size and attenuation. Pancreas: Unremarkable. Adrenal glands: There is a 23 mm left adrenal adenoma Kidneys: There is a stable 17 mm exophytic right renal lesion, likely representing a slightly hyperdense cyst. There is a nonobstructing 4 mm left renal calculus. No ureteral or bladder calculi are visualized. Bowel: There are no transition zones to indicate bowel obstruction. There is pandiverticulosis. There is fluid present within the colon. The previous identified left colonic wall thickening has resolved. There is a stable 42 mm soft tissue and gas collection contiguous with the left ovary. This represents either a giant sigmoid diverticulum, or chronic ovarian sigmoid fistula. There is an infraumbilical hernia containing a small knuckle of bowel. No obstructive changes are evident. Peritoneum: There is no intraperitoneal free air or abdominal ascites. There is a tiny fat-containing supraumbilical hernia. There is a tiny infraumbilical hernia containing a small buckle of bowel. Vasculature: The abdominal aorta is normal in course and caliber. Adenopathy: There are shotty iliac and perisigmoid lymph nodes are the upper limits of normal in size. 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 IMPRESSION: 1. No evidence of bowel obstruction. No evidence of free air 2. Tiny infraumbilical ventral hernia containing a small buckle of bowel. There are no current obstructive changes. 3. Diverticulosis. No evidence of acute peridiverticular inflammatory change 4. Unusual 42 mm soft tissue and gas collection contiguous with the right ovary and sigmoid colon. 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 Nonobstructing left renal calculus 6. Stable left adrenal adenoma Electronically signed by: Gonzalo Lyon M.D. 02/27/2018 9:28 PM Dictated Date/Time: 02/27/2018 9:18 PM
[2018-02-28] VITALS (10 sets, daily range): BP systolic 127–153; BP diastolic 61–86; PULSE 53–86; TEMP 36.5–37.1; O2SAT 91–99
[2018-02-28 00:11] LABS: HEMATOCRIT 32.3 % (37-47); HEMOGLOBIN 10.4 g/dL (12.0-16.0)
[2018-02-28] MEDS: ALBUT/IPRATROP 3MG/0.5MG NEB 3 ML VIAL INH SCH ×4 (07:04→18:56)
[2018-02-28 07:17] LABS: BASO % 0.2 %; BASO ABS # 0.02 K/uL (0-0.2); EOS % 4.3 %; EOS ABS # 0.39 K/uL (0-0.5); HEMATOCRIT 30.9 % (37-47); HEMOGLOBIN 9.9 g/dL (12.0-16.0); IG# 0.03 K/uL (0.00-0.02); LYMPH % 29.6 %; LYMPH ABS # 2.66 K/uL (1.2-3.4); MEAN CORPUSCULAR HEMOGLOBIN 28.2 pg (25-34); MONO % 10.4 %; MONO ABS # 0.94 K/uL (0.11-0.59); NEUT % 55.2 %; NEUT ABS # 4.96 K/uL (1.4-6.5); PLATELET COUNT 299 K/uL (130-400); RED CELL DISTRIBUTION WIDTH CV 14.3 % (11.5-14.5); RED CELL DISTRIBUTION WIDTH SD 46.4 fL (36.4-46.3)
[2018-02-28] MEDS: PANTOprazole SOD 40 MG TAB PO SCH ×2 (08:00→19:59)
[2018-02-28] MEDS: TIOTROPIUM BROMIDE 5 PUFF/90 MCG INH INH SCH (08:01)
[2018-02-28] MEDS: POTASSIUM CHLORIDE 20 MEQ TABCR PO SCH (08:02)
[2018-02-28] MEDS: BRINZOLAMIDE (AZOPT) OPS 10 ML BTL OP SCH ×2 (08:02→19:59)
[2018-02-28] MEDS: HYDROCODONE/ACETAMIN 5/325MG TAB PO PRN ×3 (08:06→23:05)
[2018-02-28] MEDS: INSULIN ASPART 100 UNITS/ML 3 ML PEN SC SCH ×4 (08:07→21:00)
[2018-02-28] MEDS: SODIUM CHLORIDE 0.9% 1000ML 1,000 ML IV SCH (08:09)
[2018-02-28 08:16] LABS: ALBUMIN 2.9 gm/dl (3.4-5.0); ALKALINE PHOSPHATASE 100 U/L (45-117); ALT/SGPT 13 U/L (12-78); AST/SGOT 11 U/L (15-37); BLOOD UREA NITROGEN 8 mg/dl (7-18); CALCIUM 8.5 mg/dl (8.5-10.1); CARBON DIOXIDE 29 mmol/L (21-32); CREATININE 0.72 mg/dl (0.60-1.20); GLUCOSE 104 mg/dl (70-99); POTASSIUM 3.8 mmol/L (3.5-5.1); SODIUM 143 mmol/L (136-145); TOTAL PROTEIN 6.6 gm/dl (6.4-8.2)
[2018-02-28] MEDS: DILTIAZEM HCL 180 MG ER CAP PO SCH (09:05)
--- NOTE | 2018-02-28 09:51 | Gastroenterology Progress Note ---
Gastroenterology Progress Note Patient was seen and examined today. Finished 2/3 of the Golytely, still has blood with the effluent but no clots and clearing a bit. CT scan showed diverticulosis and ? gas/ soft tissue between right ovary and sigmoid colon, Diverticulum Vs fistula. Patient denies any vaginal discharge and no symptoms to suggest fistula. On exam: abdomen is soft and non tender. Labs: Stable H/H Plan: Colonoscopy today. Patient understands the risk and benefit and agrees.
[2018-02-28] MEDS ORDERED: LIDOCAINE HCL 2% 2 ML VIAL (20MG/ML) ONE (11:27)
[2018-02-28] MEDS ORDERED: PROPOFOL IV EMULSION 10 MG/ML 20 ML VIAL ONE ×2 (11:27→13:38)
--- NOTE | 2018-02-28 12:16 | GI REPORT ---
Patient Name: Nina Harrington Procedure Date: 02/28/2018 11:17 AM Date of : 1940 Admit Type: Inpatient Age: 77 Gender: Female Attending MD: Manju Carrillo MD Procedure: Colonoscopy Providers: Manju Carrillo MD Referring MD: Manuel Sunshine M.d. Indications: Rectal bleeding Medicines: Monitored Anesthesia Care Complications: No immediate complications. Estimated Blood Loss: Estimated blood loss: none. Procedure: Pre-Anesthesia Assessment: - Prior to the procedure, a History and Physical was performed, and patient medications and allergies were reviewed. The patient is competent. The risks and benefits of the procedure and the sedation options and risks were discussed with the patient. All questions were answered and informed consent was obtained. Patient identification and proposed procedure were verified by the physician and the nurse in the procedure room. Mental Status Examination: alert and oriented. Airway Examination: normal oropharyngeal airway and neck mobility. Respiratory Examination: clear to auscultation. CV Examination: normal. ASA Grade Assessment: III - A patient with severe systemic disease. After reviewing the risks and benefits, the patient was deemed in satisfactory condition to undergo the procedure. The anesthesia plan was to use monitored anesthesia care (MAC). Immediately prior to administration of medications, the patient was re-assessed for adequacy to receive sedatives. The heart rate, respiratory rate, oxygen saturations, blood pressure, adequacy of pulmonary ventilation, and response to care were monitored throughout the procedure. The physical status of the patient was re-assessed after the procedure. After I obtained informed consent, the scope was passed under direct vision. Throughout the procedure, the patient's blood pressure, pulse, and oxygen saturations were monitored continuously. The Scope was introduced through the anus and advanced to the cecum, identified by appendiceal orifice and ileocecal valve. The colonoscopy was performed without difficulty. The patient tolerated the procedure well. The quality of the bowel preparation was good. The ileocecal valve, appendiceal orifice, and rectum were photographed. Findings: The perianal and digital rectal examinations were normal. Two sessile polyps were found in the ascending colon. The polyps were 5 mm in size. These polyps were removed with a cold snare. Resection and retrieval were complete. Verification of patient identification for the specimen was done by the physician and nurse using the patient's name and date. Multiple small and large-mouthed diverticula were found in the entire colon. Brown stool with no active or old blood seen. Non-bleeding internal hemorrhoids were found during retroflexion. The hemorrhoids were small. Impression: - Two 5 mm polyps in the ascending colon, removed with a cold snare. Resected and retrieved. - Diverticulosis in the entire examined colon. No active bleeding seen. - Non-bleeding internal hemorrhoids. Recommendation: - Discharge patient to home. - Await pathology results. - Repeat colonoscopy in 3 years for surveillance. - Consider outpatient barium enema to evaluate ? fistula on CT scan, unable to identify fistula on colonoscopy due to high burden of diverticulosis. - Obtain Bleeding scan if any evidence of rebleeding. - Advance to regular diet. - Recall GI if needed. Manju Carrillo MD 02/28/2018 12:15:56 PM This report has been signed electronically. Note Initiated On: 02/28/2018 11:17 AM Number of Addenda: 0 I attest to the content of the Intraoperative Record and orders documented therein, exceptions below {[id number]}
--- NOTE | 2018-02-28 12:17 | [facility] Operative Report ---
Operative Report Operative Date February 28, 2018. Pre-Operative Diagnosis Rectal bleeding Post-Operative Diagnosis Diverticulosis and polyps Procedure(s) Performed Colonoscopy with polypectomy Surgeon Dr. Carrillo Estimated Blood Loss 0 cc Anesthesia Type MAC I attest to the content of the Intraoperative Record and any orders documented therein. Any exceptions are noted below.
--- NOTE | 2018-02-28 12:20 | Gastroenterology Progress Note ---
Gastroenterology Progress Note Colonoscopy showed no evidence of active or old bleeding, brown stool noted. Two 5mm polyps removed. [place] diverticulosis noted. Plan: Advance to regular diet. Bleeding scan if evidence of rebleeding. Obtain outpatient Barium enema to evaluate the ? fistula seen on CT scan. Recall GI if needed.
[2018-02-28] MEDS ORDERED: ONDANSETRON INJ 2 MG/ML 2 ML VIAL IV PRN (12:30)
[2018-02-28] MEDS ORDERED: ATROPINE SULFATE 0.1 MG/ML 5ML SYR IV PRN (12:30)
--- NOTE | 2018-02-28 12:49 | Anesthesiology Progress Note ---
Anesthesia Post Op Note Date & Time February 28, 2018 at 12:48 Vital Signs Vital Signs Past 12 Hours Date Time Temp Pulse Resp B/P (MAP) Pulse Ox O2 Delivery O2 Flow Rate FiO2 02/28/18 12:45 36.6 57 18 102/53 94 Room Air 02/28/18 12:35 50 18 95/51 94 Oxymask 5 02/28/18 12:26 47 18 125/48 97 Oxymask 5 02/28/18 12:18 36.7 50 16 111/51 96 Oxymask 5 02/28/18 11:19 59 16 94 Room Air 02/28/18 08:00 Room Air 02/28/18 07:26 36.8 63 16 142/86 (104) 99 Room Air 02/28/18 07:04 54 16 98 Nasal Cannula 4.0 02/28/18 04:24 36.5 86 19 153/77 (102) 97 Nasal Cannula 4.0 02/28/18 04:20 Nasal Cannula 4.0 02/28/18 01:03 36.6 77 18 136/81 (99) 94 Room Air Notes Mental Status: alert / awake / arousable, participated in evaluation Pt Amnestic to Procedure: Yes Nausea / Vomiting: adequately controlled Pain: adequately controlled Airway Patency, RR, SpO2: stable & adequate BP & HR: stable & adequate Hydration State: stable & adequate Anesthetic Complications: no major complications apparent
[2018-02-28] MEDS ORDERED: ONDANSETRON INJ 2 MG/ML 2 ML VIAL ONE (13:05)
[2018-02-28] MEDS: ONDANSETRON INJ 2 MG/ML 2 ML VIAL IV PRN ×2 (16:09→23:05)
[2018-02-28] MEDS ORDERED: NURSING VERBAL MED ORDER ONE (16:30)
--- NOTE | 2018-02-28 17:48 | Progress Note ---
Internal Med Progress Note Date of Service: February 28, 2018. Provider Documentation: SUBJECTIVE: Patient continued to have blood per rectum since yesterday but is less blood Patient s/p Colonoscopy with polypectomy and found to have Diverticulosis and polyps. Patient returned to medical [place] with nausea but denies acute abdominal pain. OBJECTIVE: Exam: General- nod distress Eyes- EOMI Neck- no JVD Lungs- CTABL, no wheezing, breathing on room air Heart- bradycardia Abdomen- soft, nontender, + bowel sounds Extremities- no edema Neuro- no focal deficits ASSESSMENT & PLAN: LOWER GI BLEED -admission for blood per rectum with declining Hgb -C. difficile negative -blood cultures pending -s/p Colonoscopy on 02/28/18 with polypectomy and found to have Diverticulosis and polyps "Two 5 mm polyps in the ascending colon, removed with a cold snare. Resected and retrieved. Diverticulosis in the entire examined colon. No active bleeding seen. Non-bleeding internal hemorrhoids." GI Recommendation: Await pathology results. Repeat colonoscopy in 3 years for surveillance. Consider outpatient barium enema to evaluate questionable fistula on CT scan, unable to identify fistula on colonoscopy due to high burden of diverticulosis. Obtain Bleeding scan if any evidence of rebleeding. Advance to regular diet. ASTHMA/COPD -continue spiriva, zafirlukast, duonebs DM II -hold glimepiride -Novolog sliding scale per protocol HTN Stable, continue to monitor -continue diltiazem -hold lasix GERD -continue PPI Nausea -antiemetics DVT Prophylaxis -SCDs Disposition: remains in hospital for further monitoring after colonoscopy procedure. patient with nausea which could have been from sedation medications in colonoscopy. Monitor for any further blood per rectum. Monitor Hgb. Re- evaluate if reayd for discharge by tomorrow. Vital Signs: Date Time Temp Pulse Resp B/P (MAP) Pulse Ox O2 Delivery O2 Flow Rate FiO2 02/28/18 16:25 36.8 62 18 137/70 (92) 95 Room Air 02/28/18 16:00 Room Air 02/28/18 15:33 66 16 95 Room Air 02/28/18 13:06 36.9 53 16 140/63 (88) 93 Room Air 02/28/18 12:55 36.7 18 117/60 93 Room Air 02/28/18 12:45 36.6 57 18 102/53 94 Room Air 02/28/18 12:35 50 18 116/57 94 02/28/18 12:26 47 18 125/48 97 Oxymask 5 02/28/18 12:18 36.7 50 16 111/51 96 Oxymask 5 02/28/18 12:00 Room Air 02/28/18 11:19 59 16 94 Room Air 02/28/18 08:00 Room Air 02/28/18 07:26 36.8 63 16 142/86 (104) 99 Room Air 02/28/18 07:04 54 16 98 Nasal Cannula 4.0 02/28/18 04:24 36.5 86 19 153/77 (102) 97 Nasal Cannula 4.0 02/28/18 04:20 Nasal Cannula 4.0 02/28/18 01:03 36.6 77 18 136/81 (99) 94 Room Air 02/28/18 00:20 Nasal Cannula 4.0 02/27/18 20:00 93 Room Air 02/27/18 19:56 36.9 67 18 155/85 (108) 90 Room Air 02/27/18 19:56 72 16 93 Room Air Lab Results: Results Past 24 Hours Test 02/27/18 19:56 02/27/18 20:06 02/27/18 23:48 02/28/18 00:39 Range/Units Hemoglobin 10.9 10.4 12.0-16.0 g/dL Hematocrit 34.2 32.3 37-47 % Bedside Glucose 91 98 70-90 mg/dl Test 02/28/18 05:56 02/28/18 06:41 02/28/18 07:36 02/28/18 14:24 Range/Units Bedside Glucose 106 118 98 70-90 mg/dl White Blood Count 9.00 4.8-10.8 K/uL Red Blood Count 3.51 4.2-5.4 M/uL Hemoglobin 9.9 12.0-16.0 g/dL Hematocrit 30.9 37-47 % Mean Corpuscular Volume 88.0 80-100 fL Mean Corpuscular Hemoglobin 28.2 25-34 pg Mean Corpuscular Hemoglobin Concent 32.0 32-36 g/dl Platelet Count 299 130-400 K/uL Mean Platelet Volume 9.0 7.4-10.4 fL Neutrophils (%) (Auto) 55.2 % Lymphocytes (%) (Auto) 29.6 % Monocytes (%) (Auto) 10.4 % Eosinophils (%) (Auto) 4.3 % Basophils (%) (Auto) 0.2 % Neutrophils # (Auto) 4.96 1.4-6.5 K/uL Lymphocytes # (Auto) 2.66 1.2-3.4 K/uL Monocytes # (Auto) 0.94 0.11-0.59 K/uL Eosinophils # (Auto) 0.39 0-0.5 K/uL Basophils # (Auto) 0.02 0-0.2 K/uL RDW Standard Deviation 46.4 36.4-46.3 fL RDW Coefficient of Variation 14.3 11.5-14.5 % Immature Granulocyte % (Auto) 0.3 % Immature Granulocyte # (Auto) 0.03 0.00-0.02 K/uL Sodium Level 143 136-145 mmol/L Potassium Level 3.8 3.5-5.1 mmol/L Chloride Level 109 98-107 mmol/L Carbon Dioxide Level 29 21-32 mmol/L Anion Gap 5.0 3-11 mmol/L Blood Urea Nitrogen 8 7-18 mg/dl Creatinine 0.72 0.60-1.20 mg/dl Est Creatinine Clear Calc Drug Dose 79.0 ml/min Estimated GFR () 92.3 Estimated GFR (Non- 79.7 BUN/Creatinine Ratio 11.1 10-20 Random Glucose 104 70-99 mg/dl Calcium Level 8.5 8.5-10.1 mg/dl Total Bilirubin 0.3 0.2-1 mg/dl Direct Bilirubin < 0.1 0-0.2 mg/dl Aspartate Amino Transf (AST/SGOT) 11 15-37 U/L Alanine Aminotransferase (ALT/SGPT) 13 12-78 U/L Alkaline Phosphatase 100 45-117 U/L Total Protein 6.6 6.4-8.2 gm/dl Albumin 2.9 3.4-5.0 gm/dl Globulin 3.7 2.5-4.0 gm/dl Albumin/Globulin Ratio 0.8 0.9-2 Test 02/28/18 16:44 Range/Units Bedside Glucose 111 70-90 mg/dl Microbiology Results 02/27/18 C.difficile Toxin B Gene (PCR) - Final, Complete No C. difficile toxin B gene detected
[2018-02-28] MEDS: BIMATOPROST 0.01% OP SOLN 2.5 ML BTL OPB SCH (20:00)
[2018-03-01] VITALS (7 sets, daily range): BP systolic 123–146; BP diastolic 48–76; PULSE 48–70; TEMP 36.6–36.9; O2SAT 91–98
[2018-03-01 05:59] LABS: BASO % 0.2 %; BASO ABS # 0.02 K/uL (0-0.2); EOS % 5.5 %; HEMATOCRIT 31.2 % (37-47); HEMOGLOBIN 9.6 g/dL (12.0-16.0); IG# 0.02 K/uL (0.00-0.02); LYMPH % 37.8 %; LYMPH ABS # 3.42 K/uL (1.2-3.4); MEAN CELL VOLUME 88.9 fL (80-100); MEAN CORPUSCULAR HEMOGLOBIN 27.4 pg (25-34); MEAN CORPUSCULAR HGB CONC 30.8 g/dl (32-36); MEAN PLATELET VOLUME 9.1 fL (7.4-10.4); MONO % 11.2 %; MONO ABS # 1.01 K/uL (0.11-0.59); NEUT % 45.1 %; NEUT ABS # 4.07 K/uL (1.4-6.5); PLATELET COUNT 313 K/uL (130-400); RED CELL DISTRIBUTION WIDTH CV 14.4 % (11.5-14.5); RED CELL DISTRIBUTION WIDTH SD 47.1 fL (36.4-46.3); WHITE BLOOD COUNT 9.04 K/uL (4.8-10.8)
[2018-03-01] MEDS: ALBUT/IPRATROP 3MG/0.5MG NEB 3 ML VIAL INH SCH ×3 (07:04→15:18)
[2018-03-01] MEDS: HYDROCODONE/ACETAMIN 5/325MG TAB PO PRN ×2 (07:34→15:37)
[2018-03-01] MEDS: TIOTROPIUM BROMIDE 5 PUFF/90 MCG INH INH SCH (07:35)
[2018-03-01] MEDS: DILTIAZEM HCL 180 MG ER CAP PO SCH (07:35)
[2018-03-01] MEDS: PANTOprazole SOD 40 MG TAB PO SCH (07:35)
[2018-03-01] MEDS: BRINZOLAMIDE (AZOPT) OPS 10 ML BTL OP SCH (07:36)
[2018-03-01] MEDS: POTASSIUM CHLORIDE 20 MEQ TABCR PO SCH (07:36)
[2018-03-01] MEDS: INSULIN ASPART 100 UNITS/ML 3 ML PEN SC SCH ×3 (07:36→17:00)
--- NOTE | 2018-03-01 17:10 | Progress Note ---
Internal Med Progress Note Date of Service: March 01, 2018. Provider Documentation: SUBJECTIVE: Patient has not had bowel movement today. She did report some blood on towel when she was cleaning her self. Hgb has been stable. 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 There are no pleural effusions Liver: The unenhanced liver is normal in size, contour, and attenuation. There is no intrahepatic biliary ductal dilatation. Gallbladder: Not visualized and presumed surgically absent Spleen: Normal in size and attenuation. Pancreas: Unremarkable. Adrenal glands: There is a 23 mm left adrenal adenoma Kidneys: There is a stable 17 mm exophytic right renal lesion, likely representing a slightly hyperdense cyst. There is a nonobstructing 4 mm left renal calculus. No ureteral or bladder calculi are visualized. Bowel: There are no transition zones to indicate bowel obstruction. There is pandiverticulosis. There is fluid present within the colon. The previous identified left colonic wall thickening has resolved. There is a stable 42 mm soft tissue and gas collection contiguous with the left ovary. This represents either a giant sigmoid diverticulum, or chronic ovarian sigmoid fistula. There is an infraumbilical hernia containing a small knuckle of bowel. No obstructive changes are evident. Peritoneum: There is no intraperitoneal free air or abdominal ascites. There is a tiny fat-containing supraumbilical hernia. There is a tiny infraumbilical hernia containing a small buckle of bowel. Vasculature: The abdominal aorta is normal in course and caliber. Adenopathy: There are shotty iliac and perisigmoid lymph nodes are the upper limits of normal in size. 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 IMPRESSION: 1. No evidence of bowel obstruction. No evidence of free air 2. Tiny infraumbilical ventral hernia containing a small buckle of bowel. There are no current obstructive changes. 3. Diverticulosis. No evidence of acute peridiverticular inflammatory change 4. Unusual 42 mm soft tissue and gas collection contiguous with the right ovary and sigmoid colon. 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 Nonobstructing left renal calculus 6. Stable left adrenal adenoma LOWER GI BLEED -admission for blood per rectum with declining Hgb -C. difficile negative -blood cultures pending -s/p Colonoscopy on 02/28/[address] Manju Carrillo with polypectomy and found to have Diverticulosis and polyps Two 5 mm polyps in the ascending colon, removed with a cold snare. Resected and retrieved. Diverticulosis in the entire examined colon. No active bleeding seen. Non-bleeding internal hemorrhoids. -Have called the pathology department at [facility] to inquire whether the polyps removed were received in pathology or not as there was not listed pathology specimen on [employer]. Notified that this will be updated in [employer] computer system on 03/02/18 -GI Recommendations: Repeat colonoscopy in 3 years for surveillance. Consider outpatient barium enema to evaluate questionable fistula on CT scan, unable to identify fistula on colonoscopy due to high burden of diverticulosis. -Discussed with Gastroenterology Dr. Manju Carrillo in regards to patient's post colonoscopy of reporting blood spotting when wiping with towel and he assures that this is from hemorrhoids and patient can be discharged as Hgb stable ASTHMA/COPD -continue spiriva, zafirlukast, duonebs DM II -continue home diabetes medication HTN Stable, continue to monitor -continue diltiazem -continue Lasix at home GERD -omeprazole at home Nausea resolved Discharge Instructions Follow up with primary care doctor Marcela Pinto MD [facility] on 03/05/2018 11:20 AM (Primary care doctor should follow up with colonoscopy pathology results, and schedule outpatient barium enema) Vital Signs: Date Time Temp Pulse Resp B/P (MAP) Pulse Ox O2 Delivery O2 Flow Rate FiO2 03/01/18 15:18 60 16 94 Room Air 03/01/18 12:00 Room Air 03/01/18 11:12 36.6 52 18 126/48 (74) 91 Nasal Cannula 03/01/18 11:12 50 16 92 Room Air 03/01/18 08:00 Room Air 03/01/18 07:09 36.9 54 20 146/76 (99) 98 Nasal Cannula 4.0 03/01/18 07:06 48 16 98 Nasal Cannula 4.0 03/01/18 04:00 Nasal Cannula 4.0 03/01/18 03:45 36.7 70 20 139/68 (91) 97 Nasal Cannula 4.0 03/01/18 00:29 36.9 61 18 123/75 (91) 92 Room Air 03/01/18 00:00 Nasal Cannula 4.0 02/28/18 20:00 Room Air 02/28/18 19:30 37.1 60 18 127/61 (83) 94 Room Air 02/28/18 18:58 66 16 91 Room Air Lab Results: Results Past 24 Hours Test 02/28/18 20:33 03/01/18 05:29 03/01/18 07:24 03/01/18 11:27 Range/Units Bedside Glucose 173 109 108 70-90 mg/dl White Blood Count 9.04 4.8-10.8 K/uL Red Blood Count 3.51 4.2-5.4 M/uL Hemoglobin 9.6 12.0-16.0 g/dL Hematocrit 31.2 37-47 % Mean Corpuscular Volume 88.9 80-100 fL Mean Corpuscular Hemoglobin 27.4 25-34 pg Mean Corpuscular Hemoglobin Concent 30.8 32-36 g/dl Platelet Count 313 130-400 K/uL Mean Platelet Volume 9.1 7.4-10.4 fL Neutrophils (%) (Auto) 45.1 % Lymphocytes (%) (Auto) 37.8 % Monocytes (%) (Auto) 11.2 % Eosinophils (%) (Auto) 5.5 % Basophils (%) (Auto) 0.2 % Neutrophils # (Auto) 4.07 1.4-6.5 K/uL Lymphocytes # (Auto) 3.42 1.2-3.4 K/uL Monocytes # (Auto) 1.01 0.11-0.59 K/uL Eosinophils # (Auto) 0.50 0-0.5 K/uL Basophils # (Auto) 0.02 0-0.2 K/uL RDW Standard Deviation 47.1 36.4-46.3 fL RDW Coefficient of Variation 14.4 11.5-14.5 % Immature Granulocyte % (Auto) 0.2 % Immature Granulocyte # (Auto) 0.02 0.00-0.02 K/uL Test 03/01/18 16:21 Range/Units Bedside Glucose 157 70-90 mg/dl
--- NOTE | 2018-03-01 18:01 | Discharge Instructions ---
Discharge Instructions Date of Service March 01, 2018. Admission Reason for Admission: Gi Bleed Discharge Discharge Diagnosis / Problem: GI bleed, diverticulosis, polyps of ascending colon Discharge Goals Goal(s): Diagnostic testing Activity Recommendations Activity Limitations: per Instructions/Follow-up section May Resume Sexual Activity: when tolerated . Current Hospital Diet Patient's current hospital diet: Diabetes Type 2 Diet Discharge Diet Recommended Diet: Diabetes Type 2 Diet Procedures Procedures Performed: Colonoscopy with polypectomy Pending Studies Studies pending at discharge: yes List of pending studies: colon polyp pathology outpatient barium enema Laboratory Results 03/01/18 05:29 Red Blood Count 3.51, Mean Corpuscular Volume 88.9, Mean Corpuscular Hemoglobin 27.4, Mean Corpuscular Hemoglobin Concent 30.8, Mean Platelet Volume 9.1, Neutrophils (%) (Auto) 45.1, Lymphocytes (%) (Auto) 37.8, Monocytes (%) (Auto) 11.2, Eosinophils (%) (Auto) 5.5, Basophils (%) (Auto) 0.2, Neutrophils # (Auto ) 4.07, Lymphocytes # (Auto) 3.42, Monocytes # (Auto) 1.01, Eosinophils # (Auto ) 0.50, Basophils # (Auto) 0.02 02/28/18 06:41 Test 02/27/18 09:00 02/27/18 13:15 02/28/18 06:41 03/01/18 05:29 Prothrombin Time 10.1 SECONDS (9.0-12.0) Prothromb Time International Ratio 1.0 (0.9-1.1) Activated Partial Thromboplast Time 25.9 SECONDS (21.0-31.0) Partial Thromboplastin Ratio 1.0 Magnesium Level 1.9 mg/dl (1.8-2.4) Troponin I < 0.015 ng/ml (0-0.045) Pro-B-Type Natriuretic Peptide 389 pg/ml (0-1800) Thyroid Stimulating Hormone (TSH) 0.927 uIu/ml (0.300-4.500) Urine Color YELLOW Urine Appearance CLEAR (CLEAR) Urine pH 8.5 (4.5-7.5) Urine Specific [place] 1.015 (1.000-1.030) Urine Protein NEG (NEG) Urine Glucose (UA) NEG (NEG) Urine Ketones NEG (NEG) Urine Occult Blood NEG (NEG) Urine Nitrite NEG (NEG) Urine Bilirubin NEG (NEG) Urine Urobilinogen NEG (NEG) Urine Leukocyte Esterase NEG (NEG) Anion Gap 5.0 mmol/L (3-11) Est Creatinine Clear Calc Drug Dose 79.0 ml/min Estimated GFR () 92.3 Estimated GFR (Non- 79.7 BUN/Creatinine Ratio 11.1 (10-20) Calcium Level 8.5 mg/dl (8.5-10.1) Total Bilirubin 0.3 mg/dl (0.2-1) Direct Bilirubin < 0.1 mg/dl (0-0.2) Aspartate Amino Transf (AST/SGOT) 11 U/L (15-37) Alanine Aminotransferase (ALT/SGPT) 13 U/L (12-78) Alkaline Phosphatase 100 U/L (45-117) Total Protein 6.6 gm/dl (6.4-8.2) Albumin 2.9 gm/dl (3.4-5.0) Globulin 3.7 gm/dl (2.5-4.0) Albumin/Globulin Ratio 0.8 (0.9-2) White Blood Count 9.04 K/uL (4.8-10.8) Red Blood Count 3.51 M/uL (4.2-5.4) Hemoglobin 9.6 g/dL (12.0-16.0) Hematocrit 31.2 % (37-47) Mean Corpuscular Volume 88.9 fL (80-100) Mean Corpuscular Hemoglobin 27.4 pg (25-34) Mean Corpuscular Hemoglobin Concent 30.8 g/dl (32-36) Platelet Count 313 K/uL (130-400) Mean Platelet Volume 9.1 fL (7.4-10.4) Neutrophils (%) (Auto) 45.1 % Lymphocytes (%) (Auto) 37.8 % Monocytes (%) (Auto) 11.2 % Eosinophils (%) (Auto) 5.5 % Basophils (%) (Auto) 0.2 % Neutrophils # (Auto) 4.07 K/uL (1.4-6.5) Lymphocytes # (Auto) 3.42 K/uL (1.2-3.4) Monocytes # (Auto) 1.01 K/uL (0.11-0.59) Eosinophils # (Auto) 0.50 K/uL (0-0.5) Basophils # (Auto) 0.02 K/uL (0-0.2) RDW Standard Deviation 47.1 fL (36.4-46.3) RDW Coefficient of Variation 14.4 % (11.5-14.5) Immature Granulocyte % (Auto) 0.2 % Immature Granulocyte # (Auto) 0.02 K/uL (0.00-0.02) Test 03/01/18 16:21 Bedside Glucose 157 mg/dl (70-90) Date/Time Source Procedure Growth Status 02/27/18 12:27 Blood Blood Culture - Preliminary NO GROWTH TO DATE. Resulted 02/27/18 20:20 Stool C.difficile Toxin B Gene (PCR) - Final No C. difficile toxin B gene detected [facility] Emergencies . Who to Call and When: Medical Emergencies: If at any time you feel your situation is an emergency, please call 911 immediately. . Non-Emergent Contact Non-Emergency issues call your: Primary Care Provider Call Non-Emergent contact if: you have any medication questions . . "Provider Documentation" section prepared by Manuel Sunshine. .
--- NOTE | 2018-03-01 18:06 | Discharge Summary ---
Discharge Summary Date of Service March 01, 2018. Discharge Summary Admission Date: February 27, 2018 at 10:25 Discharge Date: March 01, 2018 Discharge Disposition: Home Principal Diagnosis: GI bleed, diverticulosis, polyps of ascending colon Pending Studies/Follow-Up: colon polyp pathology outpatient barium enema Admission Information HPI (per Admitting provider): Pt is 77 y/o F with PMH GI bleed, diverticulosis, GERD, DM II, asthma, COPD, deep apnea, oxygen dependent at 4L at bedtime and as needed, HTN presented to ER with complaint of rectal bleeding. Patient states this morning had some cramping to lower abdomen felt like she was going to have diarrhea and when she went to toilet had diffuse breath rectal bleeding and thinks had some stool mixed in. Patient additional 1-2 times of bright red rectal bleeding this morning. She reports left lower abdominal aching for the past week denies increased abdominal pain today. reports history of constipation and uses MiraLAX and senna daily. States last BM yesterday which was normal without noted blood or melena and patient denies straining. History colonoscopy 06/05/17 : Diverticulosis, internal hemorrhoids. Patient with history of previous hospitalizations for rectal bleeding requiring PRBC transfusions. Most recent hospitalization for rectal bleeding in 04/2017 no transfusion needed at that time. Patient reports history of SBO in 11/2017 requiring surgery at [facility]. Denies any current dizziness, denies syncope. Patient reports to not take any of her medications yet today. Has been n.p.o. since 10:30 PM last night when she had cereal. Hx LE edema at end of day, denies worsening LE edema. Denies fever/chills, diaphoresis, N/V, GRAVES, vision changes, neck pain, CP, SOB, orthopnea, palpitations, cough, sore throat, choking, otalgia, rhinorrhea, weakness, rashes, urinary symptoms, weight changes. Physical Exam (per Admitting): General Appearance: no apparent distress, + obese Head: normocephalic, atraumatic Eyes: normal inspection, PERRL, sclerae normal ENT: TMs normal, pharynx normal, + pertinent finding (mucous membranes moist ) Neck: supple, no JVD, trachea midline Respiratory/Chest: lungs clear, normal breath sounds (no wheezing/rhonchi/ rales), no respiratory distress Cardiovascular: regular rate, rhythm, normal peripheral pulses Abdomen/GI: normal bowel sounds, soft, + pertinent finding (slight tenderness to palpation lower abdomen without rebound, guarding) Back: no CVA tenderness Extremities/Musculoskelatal: no calf tenderness, normal capillary refill, no pedal edema Neurologic/Psych: alert, normal mood/affect, oriented x 3 Skin: warm/dry Hospital Course Hospital Course and Discharge Plans Patient presented with blood per rectum CT abdomen Lower chest: There is left lower lobe atelectasis/scarring. There are no pleural effusions Liver: The unenhanced liver is normal in size, contour, and attenuation. There is no intrahepatic biliary ductal dilatation. Gallbladder: Not visualized and presumed surgically absent Spleen: Normal in size and attenuation. Pancreas: Unremarkable. Adrenal glands: There is a 23 mm left adrenal adenoma Kidneys: There is a stable 17 mm exophytic right renal lesion, likely representing a slightly hyperdense cyst. There is a nonobstructing 4 mm left renal calculus. No ureteral or bladder calculi are visualized. Bowel: There are no transition zones to indicate bowel obstruction. There is pandiverticulosis. There is fluid present within the colon. The previous identified left colonic wall thickening has resolved. There is a stable 42 mm soft tissue and gas collection contiguous with the left ovary. This represents either a giant sigmoid diverticulum, or chronic ovarian sigmoid fistula. There is an infraumbilical hernia containing a small knuckle of bowel. No obstructive changes are evident. Peritoneum: There is no intraperitoneal free air or abdominal ascites. There is a tiny fat-containing supraumbilical hernia. There is a tiny infraumbilical hernia containing a small buckle of bowel. Vasculature: The abdominal aorta is normal in course and caliber. Adenopathy: There are shotty iliac and perisigmoid lymph nodes are the upper limits of normal in size. 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 IMPRESSION: 1. No evidence of bowel obstruction. No evidence of free air 2. Tiny infraumbilical ventral hernia containing a small buckle of bowel. There are no current obstructive changes. 3. Diverticulosis. No evidence of acute peridiverticular inflammatory change 4. Unusual 42 mm soft tissue and gas collection contiguous with the right ovary and sigmoid colon. 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 Nonobstructing left renal calculus 6. Stable left adrenal adenoma LOWER GI BLEED -admission for blood per rectum with declining Hgb -C. difficile negative -blood cultures pending -s/p Colonoscopy on 02/28/[address] Manju Carrillo with polypectomy and found to have Diverticulosis and polyps Two 5 mm polyps in the ascending colon, removed with a cold snare. Resected and retrieved. Diverticulosis in the entire examined colon. No active bleeding seen. Non-bleeding internal hemorrhoids. -Have called the pathology department at [facility] to inquire whether the polyps removed were received in pathology or not as there was not listed pathology specimen on [employer]. Notified that this will be updated in [employer] computer system on 03/02/18 -GI Recommendations: Repeat colonoscopy in 3 years for surveillance. Consider outpatient barium enema to evaluate questionable fistula on CT scan, unable to identify fistula on colonoscopy due to high burden of diverticulosis. -Discussed with Gastroenterology Dr. Manju Carrillo in regards to patient's post colonoscopy of reporting blood spotting when wiping with towel and he assures that this is from hemorrhoids and patient can be discharged as Hgb stable ASTHMA/COPD -continue spiriva, zafirlukast, duonebs DM II -continue home diabetes medication HTN Stable, continue to monitor -continue diltiazem -continue Lasix at home GERD -omeprazole at home Nausea resolved Discharge Instructions Follow up with primary care doctor Marcela Pinto MD [facility] on 03/05/2018 11:20 AM (Primary care doctor should follow up with colonoscopy pathology results, and schedule outpatient barium enema) Total time spent on discharge = 40 minutes This includes examination of the patient, discharge planning, medication reconciliation, and communication with other providers. Discharge Instructions see above
== END 2018-03-01 18:38 | disposition home or self-care (01) | DRG 378 ==
LOC: C.EDB 08:49 → C.MED 10:25 → ENRESERV 10:42
PROVIDERS: ADMIT Hospitalist; ATTEND Hospitalist
PROC: 0DBK8ZX Excision of Ascending Colon, Via Natural or Artificial Opening Endoscopic, Diagnostic (ICD-10-PCS; principal; 2018-02-28 09:10)
DX: K92.2 Gastrointestinal hemorrhage, unspecified (principal); K63.2 Fistula of intestine; D12.2 Benign neoplasm of ascending colon; K57.30 Diverticulosis of large intestine without perforation or abscess without bleeding; K64.8 Other hemorrhoids; J44.9 Chronic obstructive pulmonary disease, unspecified; J45.909 Unspecified asthma, uncomplicated; K21.9 Gastro-esophageal reflux disease without esophagitis; E11.9 Type 2 diabetes mellitus without complications; I10 Essential (primary) hypertension; E78.5 Hyperlipidemia, unspecified; G47.30 Sleep apnea, unspecified; E66.3 Overweight; Z79.899 Other long term (current) drug therapy; Z79.84 Long term (current) use of oral hypoglycemic drugs; Z99.81 Dependence on supplemental oxygen; Z79.82 Long term (current) use of aspirin; Z87.19 Personal history of other diseases of the digestive system; Z68.39 Body mass index [BMI] 39.0-39.9, adult; Z88.8 Allergy status to other drugs, medicaments and biological substances; Z91.013 Allergy to seafood; Z91.041 Radiographic dye allergy status; Z83.3 Family history of diabetes mellitus; Z82.49 Family history of ischemic heart disease and other diseases of the circulatory system

== ENCOUNTER 2019-09-24 22:50 | Inpatient (IN) ==
[2019-09-24] MEDS ORDERED: SODIUM CHLORIDE 0.9% 1000ML 500 ML IV ONE (23:28)
[2019-09-24] MEDS ORDERED: ONDANSETRON INJ 2 MG/ML 2 ML VIAL IV STA (23:28)
[2019-09-24 23:39] LABS: Appearance Urine Slightly Cloudy (Clear); Bilirubin Urine Negative (Negative); Blood Urine Negative (Negative); Color Urine Yellow; Glucose Urine UA Negative (Negative); Ketones Urine Negative (Negative); Leukocyte Esterase Urine Negative (Negative); Nitrite Urine Negative (Negative); Protein Urine Negative (Negative); Specific Gravity Urine <= 1.005 (1.000-1.030); Urobilinogen Urine Negative (Negative)
[2019-09-24 23:42] LABS: Basophils # (auto) 0.02 K/uL (0-0.2); Basophils % (auto) 0.1 %; Eosinophils # (auto) 0.54 K/uL (0-0.5); Hematocrit (blood only) 38.2 % (37-47); Hemoglobin 11.9 g/dL (12.0-16.0); Immature Granulocytes # (auto) 0.05 K/uL (0.00-0.02); Immature Granulocytes % (auto) 0.4 %; Lymphocytes # (auto) 3.78 K/uL (1.2-3.4); Lymphocytes % (auto) 27.9 %; Mean Corpuscular Hemoglobin 27.6 pg (25-34); Mean Corpuscular Hgb Conc 31.2 g/dL (32-36); Mean Corpuscular Volume 88.6 fL (80-100); Mean Platelet Volume 9.6 fL (7.4-10.4); Monocytes # (auto) 1.28 K/uL (0.11-0.59); Monocytes % (auto) 9.5 %; Neutrophils # (auto) 7.87 K/uL (1.4-6.5); Neutrophils % (auto) 58.1 %; Platelet Count 391 K/uL (130-400); RDW Coefficient of Variation 14.4 % (11.5-14.5); RDW Standard Deviation 46.7 fL (36.4-46.3); Red Blood Count 4.31 M/uL (4.2-5.4); White Blood Count 13.54 K/uL (4.8-10.8)
[2019-09-24 23:50] LABS: Partial Thromboplastin Time 26.5 Seconds (21.0-31.0); Prothrombin Time 10.3 Seconds (9.0-12.0)
[2019-09-25 00:02] LABS: Albumin Level 3.8 gm/dl (3.4-5.0); BUN Creatinine Ratio 12.4 (10-20); Bilirubin Direct 0.1 mg/dl (0-0.2); Calcium 9.9 mg/dl (8.5-10.1); Creatinine Clr Calc Pharmacy 50.3 ml/min; Est GFR (African American) 54.3; Est GFR (Non-African American) 46.9; Magnesium 1.9 mg/dl (1.8-2.4)
[2019-09-25 00:05] LABS: Bilirubin,Total 0.3 mg/dl (0.2-1); Total Protein 8.9 gm/dl (6.4-8.2)
[2019-09-25] MEDS ORDERED: metroNIDAZOLE 500 MG/100 ML BAG IV STA (00:10)
[2019-09-25] MEDS ORDERED: CIPROFLOXACIN 400 MG/200 ML BAG IV STA (00:10)
[2019-09-25] MEDS ORDERED: FAMOTIDINE 20MG IV PUSH 20 MG/5 ML SYR IV STA (00:10)
[2019-09-25] MEDS ORDERED: SODIUM CHLORIDE 0.9% 1000ML 1,000 ML IV SCH ×2 (02:31→08:15)
[2019-09-25] MEDS ORDERED: POTASSIUM CHLORIDE 20 MEQ TABCR PO PRN (02:31)
[2019-09-25] MEDS ORDERED: ALBUTEROL HFA 8 GM INHALER INH PRN (02:31)
[2019-09-25] MEDS ORDERED: FUROSEMIDE 40 MG TAB PO PRN (02:31)
[2019-09-25] MEDS ORDERED: ACETAMINOPHEN 325 MG TAB PO PRN ×2 (02:31→07:36)
[2019-09-25] MEDS ORDERED: NITROGLYCERIN SL 0.4 MG/TAB TAB SL PRN (02:31)
[2019-09-25] MEDS ORDERED: ALBUTEROL 0.083% NEBU SOLN 3 ML VIAL INH PRN (02:31)
[2019-09-25] MEDS ORDERED: Nursing to Pharmacy Communication ONE (02:33)
[2019-09-25] MEDS ORDERED: CONSULT PHARMACY PRN (02:48)
[2019-09-25] MEDS ORDERED: GLUCOSE 10 TABS/TUBE PO PRN (03:00)
[2019-09-25] MEDS ORDERED: GLUCOSE 40% GEL 15 GM TUBE PO PRN (03:00)
[2019-09-25] MEDS ORDERED: DEXTROSE 50% 50 ML SYRINGE IV PRN (03:00)
[2019-09-25] MEDS ORDERED: CARBOHYDRATES FOR HYPOGLYCEMIA PO PRN (03:00)
[2019-09-25] MEDS ORDERED: GLUCAGON FOR INJ 1 MG VIAL SQ PRN (03:00)
[2019-09-25] MEDS ORDERED: methylPREDNISolone 50 MG in SYRINGE 0 ML IV STA (03:04)
[2019-09-25] MEDS ORDERED: PROMETHAZINE HCL 12.5 MG in SODIUM CHLORIDE 0.9% 50 ML IV PRN (03:04)
[2019-09-25] MEDS ORDERED: IOVERSOL 100ml IV PRN (04:54)
--- NOTE | 2019-09-25 04:57 | History and Physical Report ---
DATE OF ADMISSION: 09/25/2019 CHIEF COMPLAINT: Abdominal pain and blood per rectum. HISTORY OF PRESENT ILLNESS: This 78-year-old female with past medical history significant for type 2 diabetes, hyperlipidemia, history of hypothyroidism, asthma, COPD, nocturnal hypoxia, using oxygen while sleeping, obstructive sleep apnea, does not use CPAP, hypertension, obesity, irritable bowel syndrome, history of ischemic colitis, generalized osteoarthritis, generalized anxiety disorder, history of diverticulitis and history of multiple admissions for rectal bleed, says on one of admission she received 6 units of blood. The patient lives alone, walks without any support. Two daughters and 1 son live close by. She comes in because since last about 1 and 1-1/2 weeks, she is having abdominal discomfort and nausea and abdominal pain in the lower abdomen and also in the left lower quadrant, about 5/10 in severity and appetite is down because of discomfort, and today while she was moving her bowels, she noticed blood on her wipes. Because of her history of rectal bleed and sometimes the bleed gets worse, she came here. She still has abdominal pain. Denies any vomiting. Sometimes she gets headache in the back of the head. Denies any dizziness, no blurred visions, no earache, no runny nose, no sore throat, no cough, no fever, no chills, no dysphagia, no chest pain, no shortness of breath. Normal bladder movements. No swelling in the legs, no rash. Currently resting comfortably and hemodynamically stable. ALLERGIES: DIOVAN, ENALAPRIL, LEXAPRO, IODINATED DIAGNOSTIC AGENTS CAUSING NAUSEA AND VOMITING, LISINOPRIL, METOPROLOL, SALMON OIL, VERAPAMIL, AND WELLBUTRIN. PAST MEDICAL HISTORY: As mentioned above. PAST SURGICAL HISTORY: Appendectomy, cholecystectomy, tonsillectomy, ligation of oviduct, incisional hernia repair, EGDs, colonoscopies, sigmoidoscopy, tonsillectomy, small bowel endoscopy. MEDICATIONS: The patient is on zafirlukast 20 mg p.o. daily, hydrocodone/acetaminophen 5/325 mg p.o. q. 6 hours p.r.n., omeprazole 20 mg p.o. b.i.d., terazosin 2 mg p.o. daily, Flonase 2 sprays into each nostril daily, atorvastatin 40 mg p.o. daily, albuterol nebulization t.i.d. p.r.n., diltiazem ER 360 mg p.o. daily, ferrous sulfate 325 mg every other day, trazodone 50 mg p.o. at bedtime, Colace 100 mg p.o. daily, Combivent Respimat 1 puff q.i.d., Bentyl 20 mg p.o. daily, glimepiride 2 mg p.o. daily before breakfast, Zantac 150 mg p.o. at bedtime, Zofran 8 mg p.o. t.i.d. p.r.n., Lasix 40 mg p.o. daily p.r.n. for edema, Klor-Con 20 mEq when taking Lasix, senna 8.6 mg 2 tablets at bedtime p.r.n., multivitamins 1 p.o. daily, aspirin 81 mg p.o. daily, but the patient says she is not taking it, MiraLax 17 grams p.o. b.i.d., oxygen 4 liters while sleeping, Azopt 1% ophthalmic solution into both eyes b.i.d., Lumigan 0.01% ophthalmic solution at bedtime, Spiriva inhaler 18 mcg inhalation daily, vitamin D 1000 units p.o. daily. FAMILY HISTORY: Significant for: Mother had breast cancer. Brother has COPD. Daughter has asthma. Father had heart disease. Son has obstructive sleep apnea. SOCIAL HISTORY: , lives alone, walks without any support. No smoking, no alcohol, no drug use. REVIEW OF SYMPTOMS: As per HPI. Rest of review of systems is negative. PHYSICAL EXAMINATION: GENERAL: The patient is obese, not in acute distress. VITAL SIGNS: Temperature 36.8, pulse 64, respiratory rate 19, blood pressure 127/75, oxygen 95% on 4 liters. HEENT: No pallor, no icterus. Pupils equal, round, and reactive to light. NECK: No JVD, no neck masses, no carotid bruits. CARDIOVASCULAR: S1, S2 heard, regular rate and rhythm, no murmur, no gallop. RESPIRATORY SYSTEM: Normal AP diameter. No accessory muscle use. No wheezing, no crackles. ABDOMEN: Soft, bowel sounds present. Tenderness in the epigastric region and left lower quadrant region. No guarding. No rigidity. No distention. CENTRAL VENOUS SYSTEM: Cranial nerves II-XII grossly nonfocal. EXTREMITIES: No edema, no erythema. LABORATORY DATA: WBC of 13.5, hemoglobin 11.9, hematocrit 38.2, platelets 391. PT 10.3, INR 1, APTT 26.5. Sodium 137, potassium 4, chloride 102, bicarbonate 28, BUN 14, creatinine 1.1, serum glucose 165, calcium 9.9, magnesium 1.9, total bilirubin 0.3, direct bilirubin 0.1, AST 13, ALT 15, alkaline phosphatase is 134, lipase 45. Urinalysis negative. ASSESSMENT AND PLAN: This 78-year-old female presents with blood per rectum. 1. Gastrointestinal bleed, blood per rectum. She has noticed some blood on the wipes when she went to bathroom. She has a history of multiple rectal bleed in the past with diverticulosis. Last colonoscopy was in February 2018 showed diverticulosis. Also has polypectomy. She has history of diverticulitis in the past. She required multiple blood transfusions in the past; . Her hemoglobin is stable at 11.9. Because of her abdominal pain and small amount of bleed, we will do CT scan to rule out diverticulitis and ischemic colitis.Empirically started her on IV Cipro and IV Flagyl, n.p.o., IV fluids, normal saline 100 mL per hour and consult GI in a.m. and monitor in the med/surg tele. 2. History of diabetes, currently n.p.o. Holding glimepiride, place on insulin sliding scale. We will follow HbA1c levels. 3. History of asthma and history of chronic obstructive pulmonary disease and nocturnal hypoxia. Continue home inhalers and nebs p.r.n. Continue oxygen while sleeping. 4. Obstructive sleep apnea, does not use CPAP, use oxygen while sleeping. 5. Hypertension. Continue home medications of diltiazem, monitor blood pressure. 6. History of constipation. The patient says she is constipated and uses MiraLax. We will monitor. 7. Hyperlipidemia. Continue statin. 8. Gastroesophageal reflux disease. Continue PPI. 9. Deep venous thrombosis prophylaxis, sequential compression devices for now. 10. Disposition: Admit to med/surg tele. Level 1 full code. Expect to discharge home and follow with her family doctor. ANU
[2019-09-25] MEDS: MoRPHine SULFATE 4 MG/ML 1 ML CARP\\VIAL IV PRN ×2 (05:43→21:39)
[2019-09-25 05:49] LABS: Hematocrit (blood only) 33.4 % (37-47); Hemoglobin 10.4 g/dL (12.0-16.0)
[2019-09-25] MEDS: INSULIN ASPART 100 UNITS/ML 3 ML PEN SC SCH ×4 (05:50→21:47)
--- NOTE | 2019-09-25 06:11 | Emergency Department Note ---
Entered by Breanne Tang acting as a scribe for ED Provider Note Name: Nina Harrington Age: 78 years old Arrives Via: Ambulatory Informant: Patient CC: Rectal bleeding HPI: 78 year old female arrives for evaluation of worsening left lower quadrant abdominal pain that began approximately 1 week prior to arrival. The patient notes black stools over the past several days, and states that tonight, after a bowel movement, she noticed bright red blood in the toilet bowl and on toilet paper. The patient states that she has been taking iron pills so she contributed her dark stools to this. The patient states that her symptoms are similar to a prior episode of diverticulitis several months ago that required a transfusion of 2 units of blood and an episode of diverticulitis approximately 1 year ago that required a transfusion of 6 units of blood. The patient reports that she has had nausea, chills, and loss of appetite during this time, but denies vomiting, and fevers. The patient reports that she has been taking Zofran but states that this has not been relieving her nausea. The patient denies any r ecent falls or injuries. ROS: See above HPI for pertinent positives & negatives. A total of 10 systems reviewed and were otherwise negative. Past Medical History: Diverticulitis, HTN, Type 2 diabetes, COPD, and asthma Past Surgical History: Appendectomy, tonsillectomy, tubal ligation Family History: No pertinent past family history. 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: Never smoker. Home Medications: See below. Allergies See below. Physical: Vitals: BP 189/81, P 103, R 24, O2 95%, Temp 98.2 F Exam: GENERAL: Patient is well appearing, pleasant, and in minimal distress. Dehydrated appearing. EYES: No scleral icterus, unremarkable pupils. ENT: Mucous membranes dry, no nasal congestion. NECK: No masses appreciated, no meningismus, trachea is midline. RESPIRATORY: No dyspnea. Clear to auscultation and equal bilaterally. No wheeze, no rhonchi. CARDIOVASCULAR: Regular rate and rhythm. No murmurs, rubs, gallops appreciated. GASTROINTESTINAL: Mild/moderate tenderness of the left lower quadrant. Abdomen soft, no peritonitis. Bowel sounds positive. No masses appreciated. RECTAL: Scant dark brown stool in rectal vault. No bright red blood. Heme positive. BACK: No midline tenderness, no CVA tenderness EXTREMITIES: Normal motion all extremities, no cyanosis, no edema. NEUROLOGIC: Alert and oriented, no acute motor or sensory deficits, no focal weakness, cranial nerves grossly intact. SKIN: No rash, no jaundice, no diaphoresis. ED Course: Prior Medical Record, Triage/Nursing Notes, Medications, Allergies reviewed by Me Vital Signs: reviewed and remarkable for HTN (resolved) Labs: Reviewed and remarkable for mild Wbc elevation Interventions: saline lock, cipro IV, Flagyl IV, nss bolus, zofran IV Blood pressure: Normal. No Referral necessary Course: 2314: Past medical records reviewed. The patient was evaluated in room A3. A complete history and physical exam was performed. 0012: Upon reevaluation, the patient is resting comfortably. She is agreeable to hospitalist evaluation. 0026: I discussed the case with Dr. Rene Hospitalist who accepts the patient for further evaluation. Disposition: hospitalization Differentials: Differential: Diverticulitis, AVM, Coagulopathy, Colitis, Malignancy, Upper GI bleed, Fissure, Hemorrhoids, amongst other pathologies. Medical Decision Makin yr old female with history of diverticulitis in addition to htn, dmii, copd arrives with LLQ pain and bloody stools. By exam and history she has diverticulitis and without fevers nor peritonitis on exam seems reasonable treating empirically without imaging at this time. She does have blood in stool and given she has twice needed transfusion in last few months from massive GI bleed, I agree with patient and family that monitoring here rather than discharging to home 1.5 hours away is appropriate. Hospitalist on board. She is not hypotensive nor severe anemia to requiring transfusion at this time. Impression: Diverticulitis Lower GI bleed Anemia The scribe's documentation has been prepared under my direction and personally reviewed by me in its entirety. I confirm that the note above accurately reflects all work, treatment, procedures, and medical decision making performed by me. Mohinder Chambers MD Impression & Plan Diverticulitis, Lower GI bleed, Anemia Past Med/Surg History Medical History Asthma (Chronic) COPD (chronic obstructive pulmonary disease) (Chronic) Diabetes (Chronic) HTN (hypertension) (Chronic) Family History Other No pertinent family history in first degree relatives 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 Preferred Language: Malay Communication Ability: Effective Blow Molding Machine Operator Required: No Beliefs That Will Affect Care: None and Holiness Holiness Beliefs: Hindu Current Living Situation: Alone Other Information That Helps Us Care for You: No Feels Safe at Home: Yes Safety Concerns: Feels Safe At This Time Smoking Status: Never smoker Hx Alcohol Use: No Hx Substance Use: No Results & Data Vital Signs Vital Signs - 24 hr 09/24/19 22:53 09/25/19 00:00 09/25/19 00:30 Temperature 36.8 C Temperature Source Oral Pulse Rate 103 H 64 59 L Pulse Rate from SpO2 Sensor 64 60 Respiratory Rate 24 18 15 Respiratory Effort / Characteristics Non-Labored Spontaneous Respiratory Depth Normal Blood Pressure 189/81 H 129/79 122/55 L Blood Pressure Mean 117 97 78 Pulse Oximetry 95 94 94 Oxygen Delivery Method Room Air Nasal Cannula Nasal Cannula Oxygen Flow Rate 4 4 Sepsis Action Taken by Nursing No Action Required 09/25/19 01:01 09/25/19 01:31 Temperature Temperature Source Pulse Rate 64 71 Pulse Rate from SpO2 Sensor 64 71 Respiratory Rate 19 18 Respiratory Effort / Characteristics Respiratory Depth Blood Pressure 127/75 170/81 H Blood Pressure Mean 108 130 Pulse Oximetry 95 96 Oxygen Delivery Method Nasal Cannula Nasal Cannula Oxygen Flow Rate 4 4 Sepsis Action Taken by Skilled Nursing Medications Current Medication List: was personally reviewed by me Laboratory Data Attestation: I reviewed the patient's lab results. Result diagrams: 09/25/19 05:15 09/24/19 23:14 Lab Results 09/24/19 09/24/19 09/24/19 Range/Units 23:14 23:14 23:14 WBC 13.54 H (4.8-10.8) K/uL RBC 4.31 (4.2-5.4) M/uL Hgb 11.9 L (12.0-16.0) g/dL Hct 38.2 (37-47) % MCV 88.6 (80-100) fL MCH 27.6 (25-34) pg MCHC 31.2 L (32-36) g/dL RDW Std Deviation 46.7 H (36.4-46.3) fL RDW Coeff of Jesika 14.4 (11.5-14.5) % Plt Count 391 (130-400) K/uL MPV 9.6 (7.4-10.4) fL Immature Gran % (Auto) 0.4 % Neut % (Auto) 58.1 % Lymph % (Auto) 27.9 % Garden % (Auto) 9.5 % Eos % (Auto) 4.0 % Baso % (Auto) 0.1 % Immature Gran # (Auto) 0.05 H (0.00-0.02) K/uL Neut # (Auto) 7.87 H (1.4-6.5) K/uL Lymph # (Auto) 3.78 H (1.2-3.4) K/uL Garden # (Auto) 1.28 H (0.11-0.59) K/uL Eos # (Auto) 0.54 H (0-0.5) K/uL Baso # (Auto) 0.02 (0-0.2) K/uL PT 10.3 (9.0-12.0) Seconds INR 1.0 (0.9-1.1) APTT 26.5 (21.0-31.0) Seconds PTT Ratio 1.0 Sodium 137 (136-145) mmol/L Potassium 4.0 (3.5-5.1) mmol/L Chloride 102 (98-107) mmol/L Carbon Dioxide 28 (21-32) mmol/L Anion Gap 7.0 (3-11) BUN 14 (7-18) mg/dl Creatinine 1.11 (0.6-1.2) mg/dl Est Cr Clr Drug Dosing 50.3 ml/min Est GFR ( Amer) 54.3 Est GFR (Non-Af Amer) 46.9 BUN/Creatinine Ratio 12.4 (10-20) Glucose 165 H (70-99) mg/dl Calcium 9.9 (8.5-10.1) mg/dl Magnesium 1.9 (1.8-2.4) mg/dl Total Bilirubin 0.3 (0.2-1) mg/dl Direct Bilirubin 0.1 (0-0.2) mg/dl AST 13 L (15-37) U/L ALT 15 (12-78) U/L Alkaline Phosphatase 134 H (45-117) U/L Total Protein 8.9 H (6.4-8.2) gm/dl Albumin 3.8 (3.4-5.0) gm/dl Lipase 45 L (73-393) U/L Urine Color Urine Appearance (Clear) Urine pH (4.5-7.5) Ur Specific [place] (1.000-1.030) Urine Protein (Negative) Urine Glucose (UA) (Negative) Urine Ketones (Negative) Urine Blood (Negative) Urine Nitrite (Negative) Urine Bilirubin (Negative) Urine Urobilinogen (Negative) Ur Leukocyte Esterase (Negative) 09/24/19 Range/Units 23:14 WBC (4.8-10.8) K/uL RBC (4.2-5.4) M/uL Hgb (12.0-16.0) g/dL Hct (37-47) % MCV (80-100) fL MCH (25-34) pg MCHC (32-36) g/dL RDW Std Deviation (36.4-46.3) fL RDW Coeff of Jesika (11.5-14.5) % Plt Count (130-400) K/uL MPV (7.4-10.4) fL Immature Gran % (Auto) % Neut % (Auto) % Lymph % (Auto) % Garden % (Auto) % Eos % (Auto) % Baso % (Auto) % Immature Gran # (Auto) (0.00-0.02) K/uL Neut # (Auto) (1.4-6.5) K/uL Lymph # (Auto) (1.2-3.4) K/uL Garden # (Auto) (0.11-0.59) K/uL Eos # (Auto) (0-0.5) K/uL Baso # (Auto) (0-0.2) K/uL PT (9.0-12.0) Seconds INR (0.9-1.1) APTT (21.0-31.0) Seconds PTT Ratio Sodium (136-145) mmol/L Potassium (3.5-5.1) mmol/L Chloride (98-107) mmol/L Carbon Dioxide (21-32) mmol/L Anion Gap (3-11) BUN (7-18) mg/dl Creatinine (0.6-1.2) mg/dl Est Cr Clr Drug Dosing ml/min Est GFR ( Amer) Est GFR (Non-Af Amer) BUN/Creatinine Ratio (10-20) Glucose (70-99) mg/dl Calcium (8.5-10.1) mg/dl Magnesium (1.8-2.4) mg/dl Total Bilirubin (0.2-1) mg/dl Direct Bilirubin (0-0.2) mg/dl AST (15-37) U/L ALT (12-78) U/L Alkaline Phosphatase (45-117) U/L Total Protein (6.4-8.2) gm/dl Albumin (3.4-5.0) gm/dl Lipase (73-393) U/L Urine Color Yellow Urine Appearance Slightly Cloudy (Clear) Urine pH 6.0 (4.5-7.5) Ur Specific [place] <= 1.005 (1.000-1.030) Urine Protein Negative (Negative) Urine Glucose (UA) Negative (Negative) Urine Ketones Negative (Negative) Urine Blood Negative (Negative) Urine Nitrite Negative (Negative) Urine Bilirubin Negative (Negative) Urine Urobilinogen Negative (Negative) Ur Leukocyte Esterase Negative (Negative) Administered Medications Sodium Chloride (Nss 1000ml) 1,000 mls @ 100 mls/hr IV .Q10H ANDREA Stop: 10/25/19 02:30 Last Admin: 09/25/19 04:07 Dose: 100 mls/hr Documented by: [id number] Promethazine HCl 12.5 mg/ (Sodium Chloride) 50.5 mls @ 202 mls/hr IV Q6H PRN PRN Reason: Nausea And Vomiting Stop: 10/25/19 03:03 Last Infusion: 09/25/19 04:29 Dose: 0 mls/hr Documented by: [id number] Admin: 09/25/19 04:07 Dose: 202 mls/hr Documented by: [id number] Insulin Aspart (Novolog Flexpen) 0 units SC Q6 ANDREA Stop: 10/25/19 05:59 Last Admin: 09/25/19 05:50 Dose: Not Given Documented by: [id number] Cosigned by: [id number] Ioversol (Optiray 320 100ml) 92 ml IV ONCE PRN PRN Reason: Interaction Checking Stop: 09/29/19 04:53 Last Admin: 09/25/19 04:54 Dose: 92 ml Documented by: [id number] Morphine Sulfate (Morphine Sulfate) 3 mg IV Q3H PRN PRN Reason: Pain Stop: 10/09/19 03:03 Last Admin: 09/25/19 05:43 Dose: 3 mg Documented by: [id number] Discontinued Medications Diphenhydramine HCl (Benadryl Capsule) 50 mg PO NOW STA Stop: 09/25/19 03:46 Last Admin: 09/25/19 04:10 Dose: 50 mg Documented by: [id number] Sodium Chloride (Nss 1000ml) 500 mls @ 999 mls/hr IV .Q31M ONE Stop: 09/24/19 23:58 Last Infusion: 09/25/19 00:18 Dose: 0 mls/hr Documented by: [id number] Admin: 09/24/19 23:46 Dose: 999 mls/hr Documented by: [id number] Famotidine (Pepcid 20mg Iv Push) 20 mg in 5 mls @ 2.5 mls/min IV NOW STA Stop: 09/25/19 00:11 Last Admin: 09/25/19 00:19 Dose: 2.5 mls/min Documented by: [id number] Ciprofloxacin (Cipro) 400 mg in 200 mls @ 200 mls/hr IV NOW STA Stop: 09/25/19 01:09 Last Infusion: 09/25/19 01:55 Dose: 0 mls/hr Documented by: [id number] Admin: 09/25/19 00:51 Dose: 200 mls/hr Documented by: [id number] Metronidazole (Flagyl) 500 mg in 100 mls @ 100 mls/hr IV NOW STA Stop: 09/25/19 01:09 Last Infusion: 09/25/19 01:21 Dose: 0 mls/hr Documented by: [id number] Admin: 09/25/19 00:19 Dose: 100 mls/hr Documented by: [id number] Methylprednisolone 50 mg/ (Syringe) 0.8 mls @ 1.5 mls/min IV NOW STA Stop: 09/25/19 03:05 Last Admin: 09/25/19 04:31 Dose: 1.5 mls/min Documented by: [id number] Ondansetron HCl (Zofran) 4 mg IV NOW STA Stop: 09/24/19 23:29 Last Admin: 09/24/19 23:46 Dose: 4 mg Documented by: [id number] Blood Pressure Blood Pressure Findings: Elevated blood pressure Blood Pressure Disposition: further management by hospitalist Discharge Plan Visit Data *Final* Discharge Date/Time: 09/25/19 02:07 Chief Complaint: Rectal Bleed Stated Complaint: RECTAL BLEEDING ED Provider: Mohinder Chambers Discharge Problem: Diverticulitis, Lower GI bleed, Anemia Patient Disposition: Admitted As Inpatient Discharge Instructions Interventions: ED Discharge Assessment Last Done: 09/25/19 02:07 Discharge Problem: Anemia Qualifiers: Anemia type: unspecified type Qualified Code(s): D64.9 - Anemia, unspecified The scribe's documentation has been prepared under my direction and personally reviewed by me in its entirety. I confirm that the note above accurately reflects all work, treatment, procedures, and medical decision making performed by me.
--- NOTE | 2019-09-25 07:43 | CT Scan Report ---
CT OF THE ABDOMEN AND PELVIS WITH CONTRAST CLINICAL HISTORY: abdominal pain, mild rectal bleed COMPARISON STUDY: CT of the abdomen and pelvis June 23, 2019. TECHNIQUE: Following IV administration of 92 mL of Optiray-320, axial images of the abdomen and pelvi s were obtained from the lung bases to the proximal femurs. Images were reviewed in the axial, sagitt al, and coronal planes. IV contrast was administered without complication. Automated exposure contro l was utilized for the study. A dose lowering technique was utilized adhering to the principles of A FRANCISCO. CT DOSE: 1637.30 mGy.cm FINDINGS: Lung bases are unremarkable. The heart is moderately enlarged. There is enlargement of the caudate lobe of the liver. Mild biliary ductal dilatation is unchanged and likely related to cholecys tectomy. The spleen, right adrenal gland and pancreas are unremarkable. A left adrenal lesion is unch anged from earlier exams. This is benign and favors an adenoma. A few renal cysts are noted. A 1.5 cm lesion within the posterior vertex of the midpole of the left kidney measures above water attenuatio n. There is no evidence for a bowel obstruction. Extensive colonic diverticulosis is noted. There is mild infiltration and wall thickening of the proximal sigmoid colon. A 3.6 cm sigmoid diverticulum is unchanged from earlier exams. This is medially adjacent to the left ovary which is not well visualiz ed on this examination. This contains hyperdense material as before. There is no drainable fluid nicho ection. No suspicious osseous lesions are noted. Previous ventral hernia repair with mesh is noted. IMPRESSION: 1. Acute sigmoid diverticulitis. Redemonstration of a giant sigmoid diverticulum which is immediately adjacent to the left ovary. A follow-up colonoscopy once symptoms resolve is recommended, if not rec ently performed. 2. 1.5 cm lesion within the midpole of the left kidney. This measures above water attenuation. This m ay reflect a cyst however a solid renal lesion could appear similar and a follow-up renal ultrasound is recommended. Electronically signed by: Shadi Ravi M.D. 09/25/2019 7:40 AM
--- NOTE | 2019-09-25 08:11 | Hospitalist Progress Note ---
Date of Service September 25, 2019 Assessment & Plan (1) Diverticulitis: -78-year-old female with past medical history significant for type 2 diabetes, hyperlipidemia, history of hypothyroidism, asthma, COPD, nocturnal hypoxia, using oxygen while sleeping, obstructive sleep apnea, does not use CPAP, hypertension, obesity, irritable bowel syndrome, history of ischemic colitis, generalized osteoarthritis, generalized anxiety disorder, history of diverticulitis and history of multiple admissions for rectal bleed who in the past required blood transfusions from GI bleeds -Patient has lower abdominal pain particularly in the left lower quadrant and reported blood in stool -CT abdomen imaging on admission described acute sigmoid diverticulitis and there was also preliminary radiology concerns for a contained perforation along the sigmoid colon by the stat read radiologist, but on further review by inpatient hospital radiologist who has access to previous hospital imaging studies in the past, that there is no abscess or perforation. Inpatient hospital radiologist confirmed acute divertculitis -will at this time continue IV fluids and keep patient NPO while trending the hemoglobin; awaiting gastroenterology service consult evaluation chronic Anemia diverticular bleed constipation -baseline hemoglobin appears to be between 9 to 11 in the past -trend hemoglobin -monitor bowel movements Diabetes mellitus type 2 without jail current use of insulin - currently n.p.o. Holding glimepiride, place on insulin sliding scale - follow HbA1c levels. Gastroesophageal reflux disease -Continue PPI Hypertension -Continue home medications of diltiazem hyperlipidemia -Continue statin. Asthma without acute exacerbation COPD without acute exacerbation Nocturnal hypoxia, Obstructive sleep apnea -continue home inhalers -nebulizers prn if shortness of breath or wheezing -patient does not use CPAP at night and instead uses oxygen while sleeping Deep venous thrombosis prophylaxis, sequential compression devices; ambulation as tolerated Full Code Daughter Stephani [phone] (2) Lower GI bleed: Subjective Patient seen and examined at bedside. Awakened while on nasal cannula. Patient reports home oxygen use at night with sleep but does not wear oxygen during the day. She took off nasal cannula during physical examination. denies shortness of breath. no chest pain. no nausea. no vomiting. she reports bowel movement previously at night during hospital stay with she describes as dark and with blood in the stool. She reports history of constipation and history of diverticular bleeds. Review of Systems Review of Systems: All systems reviewed & are unremarkable except as noted in HPI & below Physical Exam Constitutional: + obese Eyes: PERRL, conjunctivae normal, anicteric sclerae EOM intact bilaterally ENMT: external ear and nose normal, oropharynx normal Neck: normal visual inspection Respiratory: normal respiratory effort, lungs clear to auscultation Cardiovascular: Rate/Rhythm: + bradycardic Gastrointestinal (Abdomen): Inspection/Auscultation: abdomen normal to inspection and normal bowel sounds Percussion/Palpation: + abdomen tender (tenderness to palpation particularly LLQ) Musculoskeletal: Head/Neck/Chest: normocephalic and head atraumatic Psychiatric: A+Ox3, euthymic affect Results & Data Vital Signs (Past 12 Hours) Vital Signs Temp Pulse Pulse Resp BP BP Pulse Ox 09/25/19 07:31 36.6 C 58 L 16 133/72 96 09/25/19 03:40 61 09/25/19 03:02 36.8 C 72 20 135/68 96 09/25/19 02:07 60 15 143/86 H 97 09/25/19 02:00 60 15 143/86 H 97 09/25/19 01:31 71 18 170/81 H 96 09/25/19 01:01 64 19 127/75 95 09/25/19 00:30 59 L 15 122/55 L 94 09/25/19 00:00 64 18 129/79 94 09/24/19 22:53 36.8 C 103 H 24 189/81 H 95
[2019-09-25] MEDS: metroNIDAZOLE 500 MG/100 ML BAG IV SCH ×2 (08:19→15:39)
[2019-09-25] MEDS: DICYCLOMINE HCL 20 MG TAB PO SCH (08:20)
[2019-09-25] MEDS: ATORVASTATIN 40 MG TAB PO SCH ×3 (08:20→21:27)
[2019-09-25] MEDS: DOCUSATE SODIUM 100 MG CAP PO SCH (08:20)
[2019-09-25] MEDS: CHOLECALCIFEROL 1,000 UNITS TAB PO SCH (08:21)
[2019-09-25] MEDS: dilTIAZem HCL 180 MG CAPCR PO SCH (08:22)
[2019-09-25] MEDS: FERROUS SULFATE 325 MG TAB PO SCH (08:22)
[2019-09-25] MEDS: IPRATROPIUM BROMIDE/ALBUTEROL respimat INH INH SCH ×4 (08:22→21:22)
[2019-09-25] MEDS: TIOTROPIUM BROMIDE 5 PUFF/90 MCG INH INH SCH (08:23)
[2019-09-25] MEDS: BRINZOLAMIDE (AZOPT) OPS 10 ML BTL OP SCH ×2 (08:36→21:22)
--- NOTE | 2019-09-25 09:24 | History & Physical Report ---
Date of Service September 25, 2019 History of Present Illness Chief Complaint: Anemia, Rectal bleeding, Abnormal imaging Primary Care Provider: Marcela Pinto MD 78 yo fm with a history of obesity, hyperlipidemia, htn, copd, prior abdominal surgeris including appendectomy, incisional hernia repair, admitted for reports of intermittent rectal bleeding, abdominal pain and abnormal CT showing sigmoid diverticulitis. She was admitted through the ER overnite. Afebrile, on abx currently. This morning- she is sleepy but arousable, reports her pain has improved, no subjective fevers. Does not endorse having a prior colonoscopy. No subjective reports of bleeding today. Her vitals have been relatively stable. She has no other acute complaints other than wanting to sleep as she did not sleep well over nite. Allergies Allergy/AdvReac Type Severity Reaction Status Date / Time salmon oil Allergy Severe HIVES-REDDENED Verified 09/25/19 01:59 ALL OVER Iodinated Contrast Media Allergy Intermediate HIVES-GI Verified 09/25/19 01:59 SYMPTOMS bupropion AdvReac Mild GI SYMPTOMS Verified 09/25/19 01:59 enalapril AdvReac Mild GI SYMPTOMS Verified 09/25/19 01:59 escitalopram AdvReac Mild GI SYMPTOMS Verified 09/25/19 01:59 metoprolol AdvReac Mild LOWERS Verified 09/25/19 01:59 PULSE RATE lisinopril AdvReac Unknown FAST HEART Verified 09/25/19 02:00 BEAT valsartan AdvReac Unknown FAST HEART Verified 09/25/19 02:00 BEAT verapamil AdvReac Unknown GI UPSET Verified 09/25/19 02:00 Home Medications Home Medications Medication Instructions Recorded Confirmed Type atorvastatin 40 mg PO DAILY 06/23/19 09/25/19 History cholecalciferol (vitamin D3) 1,000 unit PO DAILY 06/23/19 09/25/19 History [Vitamin D3] dicyclomine 20 mg PO DAILY 06/23/19 09/25/19 History diltiazem HCl 360 mg PO DAILY 06/23/19 09/25/19 History docusate sodium 100 mg PO DAILY 06/23/19 09/25/19 History ferrous sulfate [iron] 325 mg PO Q OTHER DAY 06/23/19 09/25/19 History furosemide [Lasix] 40 mg PO DAILY PRN 06/23/19 09/25/19 History glimepiride 2 mg PO QAM 06/23/19 09/25/19 History hydrocodone-acetaminophen 1 tab PO QID PRN 06/23/19 09/25/19 History omeprazole 20 mg PO BID 06/23/19 09/25/19 History potassium chloride [Klor-Con M20] 20 meq PO DAILY PRN 06/23/19 09/25/19 History terazosin 2 mg PO HS 06/23/19 09/25/19 History tiotropium bromide [Spiriva with 1 cap INHALATION DAILY 06/23/19 09/25/19 History HandiHaler] trazodone 50 mg PO HS 06/23/19 09/25/19 History zafirlukast 20 mg PO DAILY 06/23/19 09/25/19 History albuterol sulfate 2.5 mg INHALATION BID PRN 09/25/19 09/25/19 History albuterol sulfate [Ventolin HFA] 2 puff INHALATION QID 09/25/19 09/25/19 History aspirin [Aspir-81] 81 mg PO DAILY 09/25/19 09/25/19 History bimatoprost [Lumigan] 1 drp OPB HS 09/25/19 09/25/19 History brinzolamide [Azopt] 1 drp OPHTHALMIC (EYE) BID 09/25/19 09/25/19 History ipratropium-albuterol [Combivent 1 puff INHALATION QID 09/25/19 09/25/19 History Respimat] lactobacillus combination no.4 3,000 mmu cells PO DAILY 09/25/19 09/25/19 History [Probiotic] polyethylene glycol 3350 [Miralax] 17 g PO BID 09/25/19 09/25/19 History Past Med/Surg History Medical History Asthma (Chronic) COPD (chronic obstructive pulmonary disease) (Chronic) Diabetes (Chronic) HTN (hypertension) (Chronic) Family History Other No pertinent family history in first degree relatives 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 Preferred Language: Zambian Communication Ability: Effective Dividing Machine Operator Required: No Beliefs That Will Affect Care: None and Taoism Taoism Beliefs: Moravian Current Living Situation: Alone Other Information That Helps Us Care for You: No Feels Safe at Home: Yes Safety Concerns: Feels Safe At This Time Smoking Status: Never smoker Hx Alcohol Use: No Hx Substance Use: No Review of Systems All systems reviewed & are unremarkable except as noted in HPI & below Physical Exam Physical Exam: Obese white fm in nad Constitutional: WD/WN, vitals as above well developed and well nourished; no acute distress Eyes: PERRL, conjunctivae normal, anicteric sclerae Cardiovascular: RRR, no murmur, no edema Gastrointestinal (Abdomen): normal bowel sounds, soft, nontender, no hepatosplenomegaly Skin: no rashes, warm and dry Neurologic: PERRL, EOMI, accommodation nl, no face palsy, no dysarthria Results & Data Vital Signs (Past 12 Hours) Vital Signs Temp Pulse Pulse Resp BP BP Pulse Ox 09/25/19 07:31 36.6 C 58 L 16 133/72 96 09/25/19 03:40 61 09/25/19 03:02 36.8 C 72 20 135/68 96 09/25/19 02:07 60 15 143/86 H 97 09/25/19 02:00 60 15 143/86 H 97 09/25/19 01:31 71 18 170/81 H 96 09/25/19 01:01 64 19 127/75 95 09/25/19 00:30 59 L 15 122/55 L 94 09/25/19 00:00 64 18 129/79 94 09/24/19 22:53 36.8 C 103 H 24 189/81 H 95 Labs reviewed significant for wbc count of 13.3 on admission, hgb 11.9 to 10.4, hct 28 to 33.4, plt 391 CT A/P reviewed- acute sigmoid diverticulitis Prior CT from 12/29 in the [facility] system shows subacute diverticulitis at that time likely secondary to a large sigmoid diverticulum Code Status & VTE Plan VTE Prophylaxis Plan VTE Prophylaxis will be ordered: Yes Supervising Physician Co-Signing Physician Notes 78 yo fm with htn,hl, diabetes, copd, multiple abdominal surgeries, admitted Friday evening through the ER with complaints of llq abd pain, rectal bleeding, and imaging c/w sigmoid diverticulitis. At this time, she's stable. No evidence of an abscess. Would continue with IV abx. Advance diet as tolerated. OOB to chair at least once daily. Likely outpatient colonsocopy in 6-8 weeks assuming patient is agreeable.
[2019-09-25 11:04] LABS: Hematocrit (blood only) 34.8 % (37-47); Hemoglobin 11.1 g/dL (12.0-16.0)
[2019-09-25] MEDS: HYDROCODONE/ACETAMOPHEN 5/325MG TAB PO PRN ×2 (11:32→17:35)
[2019-09-25] MEDS: CIPROFLOXACIN 400 MG/200 ML BAG IV SCH (13:29)
[2019-09-25] MEDS: ONDANSETRON INJ 2 MG/ML 2 ML VIAL IV PRN (17:35)
[2019-09-25] MEDS: TRAZODONE HCL 50 MG TAB PO SCH (21:24)
[2019-09-25] MEDS: TERAZOSIN HCL 1 MG CAP PO SCH (21:25)
[2019-09-25] MEDS: BIMATOPROST 0.01% OP SOLN 2.5 ML BTL OP SCH (21:28)
[2019-09-26] MEDS: metroNIDAZOLE 500 MG/100 ML BAG IV SCH ×4 (00:27→23:55)
[2019-09-26] MEDS: ONDANSETRON INJ 2 MG/ML 2 ML VIAL IV PRN ×4 (00:28→19:28)
[2019-09-26] MEDS: CIPROFLOXACIN 400 MG/200 ML BAG IV SCH ×3 (01:00→23:55)
[2019-09-26] MEDS: HYDROCODONE/ACETAMOPHEN 5/325MG TAB PO PRN ×2 (01:01→22:18)
[2019-09-26 05:34] LABS: Basophils # (auto) 0.02 K/uL (0-0.2); Basophils % (auto) 0.2 %; Eosinophils # (auto) 0.02 K/uL (0-0.5); Eosinophils % (auto) 0.2 %; Hematocrit (blood only) 31.9 % (37-47); Hemoglobin 9.9 g/dL (12.0-16.0); Immature Granulocytes # (auto) 0.04 K/uL (0.00-0.02); Immature Granulocytes % (auto) 0.4 %; Lymphocytes # (auto) 2.44 K/uL (1.2-3.4); Lymphocytes % (auto) 24.4 %; Mean Corpuscular Hemoglobin 27.7 pg (25-34); Mean Corpuscular Volume 89.1 fL (80-100); Mean Platelet Volume 9.1 fL (7.4-10.4); Monocytes # (auto) 1.13 K/uL (0.11-0.59); Monocytes % (auto) 11.3 %; Neutrophils # (auto) 6.36 K/uL (1.4-6.5); Neutrophils % (auto) 63.5 %; Platelet Count 305 K/uL (130-400); RDW Coefficient of Variation 14.2 % (11.5-14.5); RDW Standard Deviation 46.5 fL (36.4-46.3); Red Blood Count 3.58 M/uL (4.2-5.4); White Blood Count 10.01 K/uL (4.8-10.8)
[2019-09-26 05:56] LABS: Calcium 8.9 mg/dl (8.5-10.1); Creatinine Clr Calc Pharmacy 68.4 ml/min; Est GFR (African American) 79.5; Est GFR (Non-African American) 68.6; Magnesium 1.9 mg/dl (1.8-2.4); Potassium 3.9 mmol/L (3.5-5.1)
[2019-09-26] MEDS: INSULIN ASPART 100 UNITS/ML 3 ML PEN SC SCH ×4 (07:53→20:50)
[2019-09-26] MEDS: dilTIAZem HCL 180 MG CAPCR PO SCH (07:55)
[2019-09-26] MEDS: BRINZOLAMIDE (AZOPT) OPS 10 ML BTL OP SCH ×2 (07:55→20:46)
[2019-09-26] MEDS: DICYCLOMINE HCL 20 MG TAB PO SCH (07:56)
[2019-09-26] MEDS: CHOLECALCIFEROL 1,000 UNITS TAB PO SCH (07:56)
[2019-09-26] MEDS: DOCUSATE SODIUM 100 MG CAP PO SCH (07:57)
[2019-09-26] MEDS: IPRATROPIUM BROMIDE/ALBUTEROL respimat INH INH SCH ×4 (07:58→20:45)
[2019-09-26] MEDS: TIOTROPIUM BROMIDE 5 PUFF/90 MCG INH INH SCH (07:58)
--- NOTE | 2019-09-26 09:17 | Hospitalist Progress Note ---
Date of Service September 26, 2019 Assessment & Plan (1) Diverticulitis: -78-year-old female with past medical history significant for type 2 diabetes, hyperlipidemia, history of hypothyroidism, asthma, COPD, nocturnal hypoxia, using oxygen while sleeping, obstructive sleep apnea, does not use CPAP, hypertension, obesity, irritable bowel syndrome, history of ischemic colitis, generalized osteoarthritis, generalized anxiety disorder, history of diverticulitis and history of multiple admissions for rectal bleed who in the past required blood transfusions from GI bleeds -Patient has lower abdominal pain particularly in the left lower quadrant and reported blood in stool -CT abdomen imaging on admission described acute sigmoid diverticulitis and there was also preliminary radiology concerns for a contained perforation along the sigmoid colon by the stat read radiologist, but on further review by inpatient hospital radiologist who has access to previous hospital imaging studies in the past, that there is no abscess or perforation. Inpatient hospital radiologist confirmed acute divertculitis -patient was given clear liquid diet after initial evaluation by gastroenterology service who recommended to continue antibiotics of IV ciprofloxacin, IV metronidazole, an likely outpatient colonsocopy in 6-8 weeks assuming patient is agreeable -09/26/19: Patient seen and examined this AM. She reported nausea to pain medications overnight. Feeling nausea but did not vomit. She was able to make small bowel movement in AM. FOBT negative. She reports abdominal discomfort and nausea symptoms persistent. She is agreeable to try a full liquid diet. She does not feel ready for hospital discharge today given current symptoms. pain medications have been adjusted to remove morphine prn from medication list. oxycodone prn for moderate pain and low dose dilaudid prn for severe pain chronic Anemia diverticular bleed constipation -baseline hemoglobin appears to be between 9 to 11 in the past -hemoglobin generally stable so far, bowel movement on 09/26/19 is FOBT negative Diabetes mellitus type 2 without jail current use of insulin - Holding glimepiride, place on insulin sliding scale - pending HbA1c results Gastroesophageal reflux disease -Continue PPI Hypertension -Continue home medications of diltiazem hyperlipidemia -Continue statin. Asthma without acute exacerbation COPD without acute exacerbation Nocturnal hypoxia, Obstructive sleep apnea -continue home inhalers -nebulizers prn if shortness of breath or wheezing -patient does not use CPAP at night and instead uses oxygen while sleeping Deep venous thrombosis prophylaxis, sequential compression devices; ambulation as tolerated Full Code Daughter Stephani [phone] (2) Lower GI bleed: Subjective Patient seen and examined this AM. She reported nausea to pain medications overnight. Feeling nausea but did not vomit. She was able to make small bowel movement in AM. FOBT negative. She reports abdominal discomfort and nausea symptoms persistent. She is agreeable to try a full liquid diet. She does not feel ready for hospital discharge today given current symptoms. no chest pain. no acute shortness of breath. no dizziness. no headache Review of Systems Review of Systems: All systems reviewed & are unremarkable except as noted in HPI & below Physical Exam 2 Constitutional: + obese Eyes: PERRL, conjunctivae normal, anicteric sclerae EOM intact bilaterally ENMT: external ear and nose normal, oropharynx normal Neck: normal visual inspection Respiratory: normal respiratory effort, lungs clear to auscultation Cardiovascular: Rate/Rhythm: + bradycardic Gastrointestinal (Abdomen): Inspection/Auscultation: abdomen normal to inspection and normal bowel sounds Percussion/Palpation: + abdomen tender (tenderness to palpation particularly LLQ) Musculoskeletal: Head/Neck/Chest: normocephalic and head atraumatic Psychiatric: A+Ox3, euthymic affect Results & Data Vital Signs (Past 12 Hours) Vital Signs Temp Pulse Pulse Resp BP Pulse Ox 09/26/19 07:32 36.9 C 48 L 16 138/56 L 96 09/26/19 07:18 50 L 09/26/19 03:46 36.8 C 77 18 118/56 L 95 09/26/19 00:00 61 09/25/19 22:27 37.2 C 58 L 20 136/82 96
[2019-09-26] MEDS ORDERED: OXYCODONE HCL IR 5 MG TAB (IMMEDIATE RELEASE) PO PRN (09:18)
[2019-09-26] MEDS ORDERED: HYDROmorphone INJ 0.5 MG/0.5 ML SYR IV PRN (09:18)
--- NOTE | 2019-09-26 09:41 | Gastroenterology Progress Note ---
Date of Service September 26, 2019 Supervising Physician Co-Signing Physician Notes 78 yo fm admitted with pain, found to have sigmoid diverticulitis- she has apparently a very large sigmoid diverticulum that has been noted on prior outpatient imaging. No prior c-scope. Continue current abx therapy, likely total duration would be 14 days, transition to po abx as tolerated Advance diet slowly. Likely outpatient colonoscopy assuming pt is agreeable in 6-8 weeks (GI office will contact her to schedule) upon discharge. Subjective No acute complaints Feeling a bit better this morning but still with pain No bloody bowel movements that she is aware of No subjective fevers or chills Review of Systems Review of Systems: All systems reviewed & are unremarkable except as noted in HPI & below Physical Exam Physical Exam: Obese elderly white female in nad Constitutional: WD/WN, vitals as above well developed and well nourished; no acute distress Eyes: PERRL, conjunctivae normal, anicteric sclerae Respiratory: normal respiratory effort, lungs clear to auscultation Cardiovascular: RRR, no murmur, no edema Gastrointestinal (Abdomen): normal bowel sounds, soft, nontender, no hepatosplenomegaly Skin: no rashes, warm and dry Neurologic: CN's II-XI intact bilaterally Results & Data Vital Signs (Past 12 Hours) Vital Signs Temp Pulse Pulse Resp BP Pulse Ox 09/26/19 07:32 36.9 C 48 L 16 138/56 L 96 09/26/19 07:18 50 L 09/26/19 03:46 36.8 C 77 18 118/56 L 95 09/26/19 00:00 61 09/25/19 22:27 37.2 C 58 L 20 136/82 96 Labs reviewed- slight downtrend in hgb Otherwise labs unremarkable change from yesterday No new imaging
[2019-09-26] MEDS ORDERED: MAGNESIUM SULFATE / D5W 1 GM/100 ML BAG IV ONE (15:00)
[2019-09-26] MEDS: TRAZODONE HCL 50 MG TAB PO SCH (20:46)
[2019-09-26] MEDS: BIMATOPROST 0.01% OP SOLN 2.5 ML BTL OP SCH (20:46)
[2019-09-26] MEDS: TERAZOSIN HCL 1 MG CAP PO SCH (20:47)
[2019-09-26] MEDS: ATORVASTATIN 40 MG TAB PO SCH (20:48)
[2019-09-27 06:39] LABS: Estimated Average Glucose 146 mg/dl; Hemoglobin A1C 6.7 % (4.5-5.6)
[2019-09-27] MEDS: TIOTROPIUM BROMIDE 5 PUFF/90 MCG INH INH SCH (07:43)
[2019-09-27] MEDS: metroNIDAZOLE 500 MG/100 ML BAG IV SCH (07:43)
[2019-09-27] MEDS: CHOLECALCIFEROL 1,000 UNITS TAB PO SCH (07:44)
[2019-09-27] MEDS: dilTIAZem HCL 180 MG CAPCR PO SCH (07:44)
[2019-09-27] MEDS: FERROUS SULFATE 325 MG TAB PO SCH (07:44)
[2019-09-27] MEDS: DICYCLOMINE HCL 20 MG TAB PO SCH (07:44)
[2019-09-27] MEDS: DOCUSATE SODIUM 100 MG CAP PO SCH (07:44)
[2019-09-27 07:45] LABS: Basophils # (auto) 0.02 K/uL (0-0.2); Basophils % (auto) 0.2 %; Eosinophils # (auto) 0.45 K/uL (0-0.5); Hematocrit (blood only) 39.6 % (37-47); Hemoglobin 12.2 g/dL (12.0-16.0); Immature Granulocytes # (auto) 0.02 K/uL (0.00-0.02); Immature Granulocytes % (auto) 0.2 %; Lymphocytes # (auto) 3.12 K/uL (1.2-3.4); Lymphocytes % (auto) 34.9 %; Mean Corpuscular Hemoglobin 27.5 pg (25-34); Mean Corpuscular Hgb Conc 30.8 g/dL (32-36); Mean Corpuscular Volume 89.4 fL (80-100); Mean Platelet Volume 9.4 fL (7.4-10.4); Monocytes % (auto) 12.3 %; Neutrophils # (auto) 4.22 K/uL (1.4-6.5); Neutrophils % (auto) 47.4 %; Platelet Count 360 K/uL (130-400); RDW Coefficient of Variation 14.8 % (11.5-14.5); RDW Standard Deviation 47.9 fL (36.4-46.3); Red Blood Count 4.43 M/uL (4.2-5.4); White Blood Count 8.93 K/uL (4.8-10.8)
[2019-09-27] MEDS: INSULIN ASPART 100 UNITS/ML 3 ML PEN SC SCH ×4 (07:45→21:19)
[2019-09-27] MEDS: BRINZOLAMIDE (AZOPT) OPS 10 ML BTL OP SCH ×2 (07:45→20:02)
[2019-09-27] MEDS: IPRATROPIUM BROMIDE/ALBUTEROL respimat INH INH SCH ×4 (07:46→20:06)
[2019-09-27] MEDS: ONDANSETRON INJ 2 MG/ML 2 ML VIAL IV PRN ×3 (09:24→23:08)
--- NOTE | 2019-09-27 10:52 | Hospitalist Progress Note ---
Date of Service September 27, 2019 Assessment & Plan (1) Diverticulitis: -78-year-old female with past medical history significant for type 2 diabetes, hyperlipidemia, history of hypothyroidism, asthma, COPD, nocturnal hypoxia, using oxygen while sleeping, obstructive sleep apnea, does not use CPAP, hypertension, obesity, irritable bowel syndrome, history of ischemic colitis, generalized osteoarthritis, generalized anxiety disorder, history of diverticulitis and history of multiple admissions for rectal bleed who in the past required blood transfusions from GI bleeds -Patient has lower abdominal pain particularly in the left lower quadrant and reported blood in stool -CT abdomen imaging on admission described acute sigmoid diverticulitis and there was also preliminary radiology concerns for a contained perforation along the sigmoid colon by the stat read radiologist, but on further review by inpatient hospital radiologist who has access to previous hospital imaging studies in the past, that there is no abscess or perforation. Inpatient hospital radiologist confirmed acute divertculitis -patient was given clear liquid diet after initial evaluation by gastroenterology service who recommended to continue antibiotics of IV ciprofloxacin, IV metronidazole, an likely outpatient colonsocopy in 6-8 weeks assuming patient is agreeable -09/26/19: Patient seen and examined this AM. She reported nausea to pain medications overnight. Feeling nausea but did not vomit. She was able to make small bowel movement in AM. FOBT negative. She reports abdominal discomfort and nausea symptoms persistent. She is agreeable to try a full liquid diet. She does not feel ready for hospital discharge today given current symptoms. pain medications have been adjusted to remove morphine prn from medication list. oxycodone prn for moderate pain and low dose dilaudid prn for severe pain -09/27/19: Patient found to have atrial fibrillation that began at 3:30 PM on 09/26/19, heart rates have been regular. but the atrial fibrillation is persistent. Patient denies chest pain. appears to able breathing comfortably on room air as usual in day time times. Patient appears to have more nausea this AM. she has been able to make small bowel movements. still with abdominal discomfort. Hemoglobin appears stable and improved. continue to monitor for symptomatic control and because of recently found atrial fibrillation chronic Anemia diverticular bleed was suspected constipation -baseline hemoglobin appears to be between 9 to 11 in the past -hemoglobin generally stable so far, bowel movement on 09/26/19 is FOBT negative -hemoglobin is 12.2 on 09/27/19 which is higher than expect given that patient has not had blood transfusions on this admission to date Atrial Fibrillation -Patient found to have atrial fibrillation that began at 3:30 PM on 09/26/19, heart rates have been regular. but the atrial fibrillation is persistent. -cardiology Dr. Mcfarland evaluated the patient on 09/27/19 and does not advise systemic anticoagulation for stroke prevention from atrial fibrillation or cardioversion (as this would require systemic anticoagulation) because of gastrointestinal bleed risks -echocardiogram results pending -patient will nee outpatient followup with usual ship [employer] Dr. 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 Asthma without acute exacerbation COPD without acute exacerbation Nocturnal hypoxia, Obstructive sleep apnea -continue home inhalers -nebulizers prn if shortness of breath or wheezing -patient does not use CPAP at night and instead uses oxygen while sleeping Deep venous thrombosis prophylaxis, sequential compression devices; ambulation as tolerated Full Code Daughter Stephani [phone] (2) Lower GI bleed: Subjective Patient found to have atrial fibrillation that began at 3:30 PM on 09/26/19, heart rates have been regular. but the atrial fibrillation is persistent. Patient denies chest pain. appears to able breathing comfortably on room air as usual in day time times. Patient appears to have more nausea this AM. she has been able to make small bowel movements. still with abdominal discomfort. Hemoglobin appears stable and improved Review of Systems Review of Systems: All systems reviewed & are unremarkable except as noted in HPI & below Physical Exam Constitutional: + obese Eyes: PERRL, conjunctivae normal, anicteric sclerae EOM intact bilaterally ENMT: external ear and nose normal, oropharynx normal Neck: normal visual inspection Respiratory: normal respiratory effort, lungs clear to auscultation Cardiovascular: Rate/Rhythm: regular rate and + irregularly irregular Gastrointestinal (Abdomen): Inspection/Auscultation: abdomen normal to inspection and normal bowel sounds Percussion/Palpation: + abdomen tender (t enderness to palpation particularly LLQ) Musculoskeletal: Head/Neck/Chest: normocephalic and head atraumatic Psychiatric: A+Ox3, euthymic affect Results & Data Vital Signs (Past 12 Hours) Vital Signs Temp Pulse Resp BP Pulse Ox 09/27/19 07:49 36.6 C 74 18 110/68 98 09/27/19 03:43 36.8 C 79 20 144/64 H 97
[2019-09-27] MEDS: CIPROFLOXACIN 400 MG/200 ML BAG IV SCH (12:20)
[2019-09-27] MEDS: HYDROCODONE/ACETAMOPHEN 5/325MG TAB PO PRN ×2 (13:41→23:09)
[2019-09-27] MEDS: metroNIDAZOLE 500 MG TAB PO SCH ×2 (14:29→21:21)
--- NOTE | 2019-09-27 14:37 | Gastroenterology Progress Note ---
Date of Service September 27, 2019 Assessment & Plan (1) Diverticulitis: 1. IV antibiotics 2. Agree with full liquid diet very slowly advance. 3. We will plan for outpatient EGD with colonoscopy in 6 to 8 weeks. Present on Admission?: Yes (2) Lower GI bleed: Seems to have resolved, without significant drop in blood indices, likely diverticular bleed. These are typically self-limiting. Present on Admission?: Yes Supervising Physician Co-Signing Physician Notes I have personally seen and examined the patient with NIECY Noyola. Her note reflects my exam and findings. I agree with her impression and plan. Improving diverticulitis. Will consider adding upper endoscopy to colonoscopy as out patient if symptoms persist. Judson Lloyd M.D. Subjective Ms. Harrington is an 78-year-old female admitted for abdominal pain nausea vomiting rectal bleeding. Hemoglobin stable at 12, CT of abdomen pelvis with acute diverticulitis. Patient tells nausea has been ongoing for approximately 3 weeks prior to onset of abdominal pain. Review of Systems Review of Systems: ROS: Gen: Denies weakness, fevers, weight loss Eyes: No eye redness, or pain, no recent vision changes Resp: No SOB, no cough Cardio: No palpitations/irregular beats, no chest pain GI: + LLQ abdominal pain, + nausea no vomiting : Denies pain on urination Skin: No jaundice, itching or new rashes Physical Exam Constitutional: WD/WN, vitals as above Eyes: PERRL, conjunctivae normal, anicteric sclerae ENMT: external ear and nose normal, oropharynx normal Neck: trachea midline, no thyromegaly Respiratory: normal respiratory effort, lungs clear to auscultation Cardiovascular: RRR, no murmur, no edema Gastrointestinal (Abdomen): Percussion/Palpation: + abdomen tender (In the left lower quadrant) and abdomen soft; no guarding, no abdominal mass and no ascites Skin: no rashes, warm and dry Neurologic: PERRL, EOMI, accommodation nl, no face palsy, no dysarthria Psychiatric: A+Ox3, euthymic affect Results & Data Vital Signs (Past 12 Hours) Vital Signs Temp Pulse Resp BP Pulse Ox 09/27/19 11:18 36.8 C 68 18 90/54 L 93 09/27/19 07:49 36.6 C 74 18 110/68 98 09/27/19 03:43 36.8 C 79 20 144/64 H 97 Laboratory Results Hb 12, Hct 39, BUN 9, Cr 0.[address] 09/25 1. Acute sigmoid diverticulitis. Redemonstration of a giant sigmoid diverticulum which is immediately adjacent to the left ovary. A follow-up colonoscopy once symptoms resolve is recommended, if not recently performed. 2. 1.5 cm lesion within the midpole of the left kidney. This measures above water attenuation. This may reflect a cyst however a solid renal lesion could appear similar and a follow-up renal ultrasound is recommended.
--- NOTE | 2019-09-27 15:10 | Cardiology Consultation ---
Date of Consultation September 27, 2019 Assessment & Plan (1) Atrial fibrillation: The pathophysiology and treatment options for atrial fibrillation were discussed with her at great lengths. She was counseled that given the fact that she is currently asymptomatic with recurrent lower GI bleeds and heart rate that is well controlled that I believe the most prudent course of action is for the rate control strategy. We are unable to anticoagulate given her recurrent GI bleeds and the risk for cardioembolic event was discussed with her great lengths she states that she understands, she is accepting of the risk and agrees that anticoagulation should not be initiated. In terms of rate control she is already on Cardizem CD 360 mg daily and her rates are relatively well controlled. She states that she has not tolerated beta blockade in the past. Should her heart rates start to elevate consideration could be given towards initiation of digoxin therapy but will hold off on monitor for now. She is then to follow up with her primary cad engineer as an outpatient. (2) Lower GI bleed: Recurrent For outpatient colonoscopy (3) Sleep apnea: Likely a significant contributing factor (4) Anemia: Stable History of Present Illness Reason for Consultation: New onset atrial fibrillation Requesting Physician: Dr. Sunshine Attending Physician: Manuel Sunshine MD History of Present Illness It was my pleasure to see Mrs. Harrintgon in consultation today September 27, 2019. She is a very pleasant 78-year-old woman who originally presented to [facility] on September 25, 2019 with complaints of abdominal discomfort, nausea in blood per rectum. She was admitted to telemetry a GI workup was undertaken and she is being treated for possible diverticular bleed. She did not become significantly anemic during her stay however on the morning of September 27, 2019 she did lapse into atrial fibrillation on panel monitor. Her heart rates are generally running in the 70s and she is completely asymptomatic. She denies experiencing any chest discomfort, shortness of breath, palpitations, lightheadedness, dizziness or syncope. She does have a long-standing history of GI bleeds. She lives at home by herself. She does follow with Dr. Meza as her cad engineer who she sees for her shortness of breath. She notes that she has had several stress tests in the past and 2 cardiac catheterizations. She notes that after her 2nd cardiac catheterization the cad engineer told her not to be sent for anymore cardiac caths given the fact that her coronaries are completely normal. She denies any history of atrial fibrillation. Allergies Allergy/AdvReac Type Severity Reaction Status Date / Time salmon oil Allergy Severe HIVES-REDDENED Verified 09/25/19 01:59 ALL OVER Iodinated Contrast Media Allergy Intermediate HIVES-GI Verified 09/25/19 01:59 SYMPTOMS bupropion AdvReac Mild GI SYMPTOMS Verified 09/25/19 01:59 enalapril AdvReac Mild GI SYMPTOMS Verified 09/25/19 01:59 escitalopram AdvReac Mild GI SYMPTOMS Verified 09/25/19 01:59 metoprolol AdvReac Mild LOWERS Verified 09/25/19 01:59 PULSE RATE verapamil AdvReac Mild GI UPSET Verified 09/25/19 15:49 lisinopril AdvReac Unknown FAST HEART Verified 09/25/19 02:00 BEAT valsartan AdvReac Unknown FAST HEART Verified 09/25/19 02:00 BEAT Home Medications Home Medications Medication Instructions Recorded Confirmed Type atorvastatin 40 mg PO DAILY 06/23/19 09/25/19 History cholecalciferol (vitamin D3) 1,000 unit PO DAILY 06/23/19 09/25/19 History [Vitamin D3] dicyclomine 20 mg PO DAILY 06/23/19 09/25/19 History diltiazem HCl 360 mg PO DAILY 06/23/19 09/25/19 History docusate sodium 100 mg PO DAILY 06/23/19 09/25/19 History ferrous sulfate [iron] 325 mg PO Q OTHER DAY 06/23/19 09/25/19 History furosemide [Lasix] 40 mg PO DAILY PRN 06/23/19 09/25/19 History glimepiride 2 mg PO QAM 06/23/19 09/25/19 History hydrocodone-acetaminophen 1 tab PO QID PRN 06/23/19 09/25/19 History omeprazole 20 mg PO BID 06/23/19 09/25/19 History potassium chloride [Klor-Con M20] 20 meq PO DAILY PRN 06/23/19 09/25/19 History terazosin 2 mg PO HS 06/23/19 09/25/19 History tiotropium bromide [Spiriva with 1 cap INHALATION DAILY 06/23/19 09/25/19 History HandiHaler] trazodone 50 mg PO HS 06/23/19 09/25/19 History zafirlukast 20 mg PO DAILY 06/23/19 09/25/19 History albuterol sulfate 2.5 mg INHALATION BID PRN 09/25/19 09/25/19 History albuterol sulfate [Ventolin HFA] 2 puff INHALATION QID 09/25/19 09/25/19 History aspirin [Aspir-81] 81 mg PO DAILY 09/25/19 09/25/19 History bimatoprost [Lumigan] 1 drp OPB HS 09/25/19 09/25/19 History brinzolamide [Azopt] 1 drp OPHTHALMIC (EYE) BID 09/25/19 09/25/19 History ipratropium-albuterol [Combivent 1 puff INHALATION QID 09/25/19 09/25/19 History Respimat] lactobacillus combination no.4 3,000 mmu cells PO DAILY 09/25/19 09/25/19 History [Probiotic] polyethylene glycol 3350 [Miralax] 17 g PO BID 09/25/19 09/25/19 History Patient History Medical History Asthma (Chronic) COPD (chronic obstructive pulmonary disease) (Chronic) Diabetes (Chronic) HTN (hypertension) (Chronic) Surgical History History of appendectomy (Resolved) History of cholecystectomy (Resolved) Family History Other No pertinent family history in first degree relatives 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 Preferred Language: Russian Communication Ability: Effective Route Returner Required: No Beliefs That Will Affect Care: None and Judaism Judaism Beliefs: Jainism marital status: / Current Living Situation: Alone Other Information That Helps Us Care for You: No Feels Safe at Home: Yes Safety Concerns: Feels Safe At This Time Smoking Status: Never smoker Hx Alcohol Use: No Hx Substance Use: No Review of Systems Review of Systems: All systems reviewed & are unremarkable except as noted in HPI & below Physical Exam Physical Exam: General: Awake, alert and oriented x 3. No acute distress. HEENT: Normocephalic, atraumatic. Pupils equal, round and reactive to light and accommodation. Extraocular muscles are intact. Anicteric sclera. Moist mucous membranes. Neck: No JVD. No bruit. Cardiovascular: irregularly irregular, unable to appreciate murmur, rub or gallop. Pulmonary: Clear to auscultation bilaterally. No rales, rhonchi, or wheezing. Abdomen: Bowel sounds x 4, soft. No rebound, guarding or tenderness. No organomegaly. Extremities: No clubbing, cyanosis or edema. +2 pedal pulses bilaterally. Skin: Warm and dry. Results & Data Vital Signs (Past 12 Hours) Vital Signs Temp Pulse Resp BP Pulse Ox 09/27/19 15:07 36.9 C 85 20 105/63 96 09/27/19 11:18 36.8 C 68 18 90/54 L 93 09/27/19 07:49 36.6 C 74 18 110/68 98 09/27/19 03:43 36.8 C 79 20 144/64 H 97 Laboratory Results Laboratory Results - last 24 hr 09/26/19 09/26/19 09/26/19 05:19 16:35 19:17 WBC RBC Hgb Hct MCV MCH MCHC RDW Std Deviation RDW Coeff of Jesika Plt Count MPV Immature Gran % (Auto) Neut % (Auto) Lymph % (Auto) [place] % (Auto) Eos % (Auto) Baso % (Auto) Immature Gran # (Auto) Neut # (Auto) Lymph # (Auto) [place] # (Auto) Eos # (Auto) Baso # (Auto) POC Glucose 95 242 H Estimat Average Glucose 146 Hemoglobin A1c 6.7 H Troponin I 09/27/19 09/27/19 09/27/19 01:23 07:19 07:19 WBC 8.93 RBC 4.43 Hgb 12.2 Hct 39.6 MCV 89.4 MCH 27.5 MCHC 30.8 L RDW Std Deviation 47.9 H RDW Coeff of Jesika 14.8 H Plt Count 360 MPV 9.4 Immature Gran % (Auto) 0.2 Neut % (Auto) 47.4 Lymph % (Auto) 34.9 [place] % (Auto) 12.3 Eos % (Auto) 5.0 Baso % (Auto) 0.2 Immature Gran # (Auto) 0.02 Neut # (Auto) 4.22 Lymph # (Auto) 3.12 [place] # (Auto) 1.10 H Eos # (Auto) 0.45 Baso # (Auto) 0.02 POC Glucose Estimat Average Glucose Hemoglobin A1c Troponin I 0.032 0.026 09/27/19 09/27/19 09/27/19 07:29 11:30 12:56 WBC RBC Hgb Hct MCV MCH MCHC RDW Std Deviation RDW Coeff of Jesika Plt Count MPV Immature Gran % (Auto) Neut % (Auto) Lymph % (Auto) [place] % (Auto) Eos % (Auto) Baso % (Auto) Immature Gran # (Auto) Neut # (Auto) Lymph # (Auto) [place] # (Auto) Eos # (Auto) Baso # (Auto) POC Glucose 104 H 139 H Estimat Average Glucose Hemoglobin A1c Troponin I 0.021 Medications Administered Current Inpatient Medications Acetaminophen (Tylenol) 325 mg PO Q6H PRN PRN Reason: Pain or Fever Stop: 10/25/19 02:30 Hydrocodone Bitart/Acetaminophen ([place] 5/325) 1 tab PO QID PRN PRN Reason: Pain Stop: 10/09/19 02:42 Last Admin: 09/27/19 13:41 Dose: 1 tab Documented by: Albuterol (Ventolin 0.083% 2.5mg/3ml) 2.5 mg INH BID PRN PRN Reason: .WORSENING ASTHMA Stop: 10/25/19 02:30 Albuterol (Ventolin Hfa) 1 - 2 puffs INH Q4H PRN PRN Reason: Shortness Of Breath Or Wheezin Stop: 10/25/19 02:30 Albuterol (Combivent Respimat) 1 puffs INH QID ANDREA Stop: 10/25/19 08:59 Last Admin: 09/27/19 12:21 Dose: 1 puffs Documented by: Atorvastatin Calcium (Lipitor) 40 mg PO HS ANDREA Stop: 10/25/19 08:59 Last Admin: 09/26/19 20:48 Dose: 40 mg Documented by: Bimatoprost (Lumigan 0.01%) 1 drops OP HS ANDREA Stop: 10/25/19 20:59 Last Admin: 09/26/19 20:46 Dose: 1 drops Documented by: Brinzolamide (Azopt) 1 drops OP BID ANDREA Stop: 10/25/19 08:59 Last Admin: 09/27/19 07:45 Dose: 1 drops Documented by: Ciprofloxacin (Cipro) 500 mg PO BID [facility] Stop: 10/05/19 20:59 Dextrose (Dextrose 50%) 25 - 50 ml IV UD PRN; Protocol PRN Reason: Hypoglycemia Protocol Stop: 10/25/19 02:59 Dicyclomine HCl (Bentyl) 20 mg PO DAILY [facility] Stop: 10/25/19 08:59 Last Admin: 09/27/19 07:44 Dose: 20 mg Documented by: Diltiazem HCl (Cardizem Cd) 360 mg PO DAILY [facility] Stop: 10/25/19 08:59 Last Admin: 09/27/19 07:44 Dose: 360 mg Documented by: Docusate Sodium (Colace) 100 mg PO DAILY [facility] Stop: 10/25/19 08:59 Last Admin: 09/27/19 07:44 Dose: 100 mg Documented by: Ferrous Sulfate (Feosol) 325 mg PO Q2D@0900 [facility] Stop: 10/25/19 08:59 Last Admin: 09/27/19 07:44 Dose: 325 mg Documented by: Furosemide (Lasix) 40 mg PO DAILY PRN PRN Reason: Fluid Retention Stop: 10/25/19 02:30 Glucagon (Glucagen) 1 mg SQ UD PRN; Protocol PRN Reason: Hypoglycemia Protocol Stop: 10/25/19 02:59 Glucose (Glucose 40%) 15 - 30 gm PO UD PRN; Protocol PRN Reason: Hypoglycemia Protocol Stop: 10/25/19 02:59 Glucose (Dex4 Glucose) 4 - 8 tabs PO UD PRN; Protocol PRN Reason: Hypoglycemia Protocol Stop: 10/25/19 02:59 Hydromorphone HCl (Dilaudid) 0.5 mg IV Q8H PRN PRN Reason: Severe Pain Stop: 10/10/19 09:17 Insulin Aspart (Novolog Flexpen) 0 units SC ACHS [facility] Stop: 10/25/19 16:29 Last Admin: 09/27/19 12:21 Dose: 2 units Documented by: Ioversol (Optiray 320 100ml) 92 ml IV ONCE PRN PRN Reason: Interaction Checking Stop: 09/29/19 04:53 Last Admin: 09/25/19 04:54 Dose: 92 ml Documented by: Metronidazole (Flagyl) 500 mg PO Q8 ANDREA Stop: 10/05/19 13:59 Last Admin: 09/27/19 14:29 Dose: 500 mg Documented by: Miscellaneous (Carbohydrates For Hypoglycemia) 15 - 30 gm PO UD PRN PRN Reason: Hypoglycemia Treatment Stop: 10/25/19 02:59 Miscellaneous Information (Pharmacy Consult) 1 ea N/A UD PRN PRN Reason: Consult Stop: 10/25/19 02:47 Montelukast Sodium (Singulair) 10 mg PO HS [facility] Stop: 10/27/19 20:59 Nitroglycerin (Nitrostat) 0.4 mg SL UD PRN PRN Reason: Chest Pain Stop: 10/25/19 02:30 Ondansetron HCl (Zofran) 4 mg IV Q6H PRN PRN Reason: Nausea Stop: 10/25/19 02:30 Last Admin: 09/27/19 09:24 Dose: 4 mg Documented by: Oxycodone HCl (Roxicodone Immediate Rel) 5 mg PO Q6H PRN PRN Reason: Moderate Pain Stop: 10/10/19 09:17 Terazosin HCl (Hytrin) 2 mg PO [facility] Stop: 10/25/19 20:59 Last Admin: 09/26/19 20:47 Dose: 2 mg Documented by: Tiotropium Wink (Spiriva) 1 puffs INH DAILY [facility] Stop: 10/25/19 08:59 Last Admin: 09/27/19 07:43 Dose: 1 puffs Documented by: Trazodone HCl (Desyrel) 50 mg PO [facility] Stop: 10/25/19 20:59 Last Admin: 09/26/19 20:46 Dose: Not Given Documented by: Vitamin D (Vitamin D3) 2,000 units PO DAILY [facility] Stop: 10/25/19 08:59 Last Admin: 09/27/19 07:44 Dose: 2,000 units Documented by: (1) Anemia Anemia type: unspecified type Qualified Code(s): D64.9 - Anemia, unspecified
[2019-09-27] MEDS: BIMATOPROST 0.01% OP SOLN 2.5 ML BTL OP SCH (20:02)
[2019-09-27] MEDS: TRAZODONE HCL 50 MG TAB PO SCH (20:03)
[2019-09-27] MEDS: ATORVASTATIN 40 MG TAB PO SCH (20:04)
[2019-09-27] MEDS: TERAZOSIN HCL 1 MG CAP PO SCH (20:05)
[2019-09-27] MEDS: CIPROFLOXACIN 500 MG TAB PO SCH (20:06)
[2019-09-27] MEDS ORDERED: MONTELUKAST SODIUM 10 MG TABLET PO SCH (21:00)
[2019-09-28] MEDS: HYDROCODONE/ACETAMOPHEN 5/325MG TAB PO PRN (05:44)
[2019-09-28] MEDS: metroNIDAZOLE 500 MG TAB PO SCH ×2 (05:46→13:39)
[2019-09-28] MEDS: BRINZOLAMIDE (AZOPT) OPS 10 ML BTL OP SCH (08:38)
[2019-09-28] MEDS: INSULIN ASPART 100 UNITS/ML 3 ML PEN SC SCH ×2 (08:38→12:15)
[2019-09-28] MEDS: IPRATROPIUM BROMIDE/ALBUTEROL respimat INH INH SCH ×2 (08:39→12:15)
[2019-09-28] MEDS: TIOTROPIUM BROMIDE 5 PUFF/90 MCG INH INH SCH (08:39)
[2019-09-28] MEDS: dilTIAZem HCL 180 MG CAPCR PO SCH (08:40)
[2019-09-28] MEDS: DICYCLOMINE HCL 20 MG TAB PO SCH (08:40)
[2019-09-28] MEDS: DOCUSATE SODIUM 100 MG CAP PO SCH (08:40)
[2019-09-28] MEDS: CIPROFLOXACIN 500 MG TAB PO SCH (08:40)
[2019-09-28] MEDS: CHOLECALCIFEROL 1,000 UNITS TAB PO SCH (08:40)
--- NOTE | 2019-09-28 10:45 | Cardiology Progress Note ---
Date of Service September 28, 2019 Assessment & Plan (1) Atrial fibrillation: The pathophysiology and treatment options for atrial fibrillation were discussed with her at great lengths. She was counseled that given the fact that she is currently asymptomatic with recurrent lower GI bleeds and heart rate that is well controlled that I believe the most prudent course of action is for the rate control strategy. We are unable to anticoagulate given her recurrent GI bleeds and the risk for ca rdioembolic event was discussed with her great lengths she states that she understands, she is accepting of the risk and agrees that anticoagulation should not be initiated. In terms of rate control she is already on Cardizem CD 360 mg daily and her rates are relatively well controlled. She states that she has not tolerated beta blockade in the past. Should her heart rates start to elevate cons ideration could be given towards initiation of digoxin therapy but will hold off on monitor for now. 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 Should she prefer to follow-up with [facility] cardiology we would obviously be happy to see her and would recommend follow-up 2 to 4 weeks after discharge. It is okay to discharge from telemetry from a cardiac standpoint. (2) Lower GI bleed: Recurrent For outpatient colonoscopy (3) Sleep apnea: Likely a significant contributing factor (4) Anemia: Stable Subjective Patient seen and examined out of bed in chair. States that she is doing okay overnight. Did have some recurrent nausea after liquid breakfast this a.m. Continues to deny any cardiac complaints specifically denies experiencing chest pain, shortness of breath, palpitations, lightheadedness, dizziness or syncope. Telemetry reviewed: Atrial fibrillation rate controlled with rates in the 70s to 80s without other arrhythmia. Review of Systems Review of Systems: All systems reviewed & are unremarkable except as noted in HPI & below Physical Exam Physical Exam: General: Awake, alert and oriented x 3. No acute distress. HEENT: Normocephalic, atraumatic. Pupils equal, round and reactive to light and accommodation. Extraocular muscles are intact. Anicteric sclera. Moist mucous membranes. Neck: No JVD. No bruit. Cardiovascular: irregularly irregular, unable to appreciate murmur, rub or gallop. Pulmonary: Clear to auscultation bilaterally. No rales, rhonchi, or wheezing. Abdomen: Bowel sounds x 4, soft. No rebound, guarding or tenderness. No organomegaly. Extremities: No clubbing, cyanosis or edema. +2 pedal pulses bilaterally. Skin: Warm and dry. Results & Data Vital Signs (Past 12 Hours) Vital Signs Temp Pulse Pulse Resp BP Pulse Ox 09/28/19 07:41 36.7 C 89 18 111/68 98 09/28/19 03:15 36.5 C 72 20 116/72 95 09/28/19 02:34 64 09/27/19 22:56 36.6 C 60 20 130/77 91 (1) Anemia Anemia type: unspecified type Qualified Code(s): D64.9 - Anemia, unspecified
[2019-09-28 12:02] LABS: Basophils # (auto) 0.01 K/uL (0-0.2); Basophils % (auto) 0.1 %; Eosinophils # (auto) 0.69 K/uL (0-0.5); Hematocrit (blood only) 36.5 % (37-47); Hemoglobin 11.3 g/dL (12.0-16.0); Immature Granulocytes # (auto) 0.04 K/uL (0.00-0.02); Immature Granulocytes % (auto) 0.3 %; Lymphocytes # (auto) 2.87 K/uL (1.2-3.4); Mean Corpuscular Hemoglobin 27.6 pg (25-34); Mean Corpuscular Volume 89.2 fL (80-100); Mean Platelet Volume 9.1 fL (7.4-10.4); Monocytes % (auto) 14.8 %; Neutrophils # (auto) 6.19 K/uL (1.4-6.5); Neutrophils % (auto) 53.8 %; Platelet Count 313 K/uL (130-400); RDW Coefficient of Variation 14.6 % (11.5-14.5); RDW Standard Deviation 47.6 fL (36.4-46.3); Red Blood Count 4.09 M/uL (4.2-5.4)
[2019-09-28] MEDS: ONDANSETRON INJ 2 MG/ML 2 ML VIAL IV PRN (12:20)
--- NOTE | 2019-09-28 14:09 | Hospitalist Progress Note ---
Date of Service September 28, 2019 Assessment & Plan (1) Diverticulitis: -78-year-old female with past medical history significant for type 2 diabetes, hyperlipidemia, history of hypothyroidism, asthma, COPD, nocturnal hypoxia, using oxygen while sleeping, obstructive sleep apnea, does not use CPAP, hypertension, obesity, irritable bowel syndrome, history of ischemic colitis, generalized osteoarthritis, generalized anxiety disorder, history of diverticulitis and history of multiple admissions for rectal bleed who in the past required blood transfusions from GI bleeds -Patient was evaluated for diverticulitis and abdominal pain and subsequently found to have atrial fibrillation -Patient has lower abdominal pain particularly in the left lower quadrant and reported blood in stool -CT abdomen imaging on admission described acute sigmoid diverticulitis and there was also preliminary radiology concerns for a contained perforation along the sigmoid colon by the stat read radiologist, but on further review by inpatient hospital radiologist who has access to previous hospital imaging s tudies in the past, that there is no abscess or perforation. Inpatient hospital radiologist confirmed acute divertculitis -initially started on IV ciprofloxacin antibiotic and IV metronidazole on 09/12 01/29 and then transitioned to oral ciprofloxacin and oral metronidazole by 09/27/19. Patient should continue oral ciprofloxacin 500 mg every 12 hours and oral metronidazole for 10 more days to complete a total of 14 days of antibiotics. discharge medication sent electronically to [facility] [id number] [place] [address] -diet advanced from liquids to solid diabetic diet by 09/18/19 -Patient should hold off aspirin until diverticulitis resolved to prevent any exacerbation of other rectal bleed -[facility] Dr. Adame evaluated the patient and recommends outpatient colonoscopy in 6-8 weeks ([facility] GI office will call to arrange on discharge; [place], [place] [address] ) chronic Anemia diverticular bleed was suspected constipation -baseline hemoglobin appears to be between 9 to 11 in the past -Blood counts are stable. admission hemoglobin hemoglobin is 119. no blood transfusions were given. discharge day hemoglobin is 11.3 -bowel movement on 09/26/19 is FOBT negative Atrial Fibrillation -Patient found to have atrial fibrillation that began at 3:30 PM on 09/26/19, heart rates have been regular. but the atrial fibrillation is persistent. -to summarize patient's inpatient cardiology evaluation by inpatient [facility] cardiology service that patient is not advised for systemic anticoagulation for stroke prevention from atrial fibrillation or cardioversion, as this would require systemic anticoagulation) because of gastrointestinal bleed risks, heart rate is controlled on home medication of Cardizem CD 360 mg daily, patient did not tolerate beta blockade in the past prior to this amdission, digoxin can be considered in the future if increases in heart rate, echocardiogram with normal ejection fraction of 50 to 55%. patient will need outpatient followup with usual monotypist Dr. Antelmo Meza who is monotypist in [place], [place]. Should patient prefer to follow-up with [facility] cardiology patient may schedule 2 to 4 weeks after discharge with [facility] [address], [place] [address] scheduled appointments 10/04/2019 12:00 PM Provider Nicolas Oro MD Department General Internal Medicine [facility] 10/11/2019 1:40 PM Provider Cari Wynne PA-C Department Family Practice [facility] 10/11/2019 2:30 PM Provider Nita Enriquez RDN Department Nutrition & Weight Management, [facility] 10/14/2019 1:30 PM Provider [facility] Department Podiatry [facility] Diabetes mellitus type 2 without mcfp current use of insulin -while inpatient, home glimepiride held, currently on insulin sliding scale - HbA1c 6.7 - patient may resume home dose medications on discharge Gastroesophageal reflux disease -Continue PPI Hypertension -Continue home medications of diltiazem hyperlipidemia -Continue statin. Asthma without acute exacerbation COPD without acute exacerbation with nocturnal hypoxia and on supplementary oxygen with sleep Nocturnal hypoxia, Obstructive sleep apnea -continue home inhalers -patient does not use CPAP at night and instead uses oxygen while sleeping Full Code Raciel Styles [phone] Discharge Diagnosis: acute diverticulitis, rectal bleed reported with initial diverticular bleed suspected, atrial fibrillation which appears to be new onset or newly identified, type 2 diabetes mellitus without complication without longer term current use of insulin, COPD without acute exacerbation with nocturnal hypoxia and on supplementary oxygen with sleep Subjective Patient tolerated diet. Patient did report when wiping after defecation, she saw blood on toilet paper. However, hemoglobin is 11.3 and is stable. Patient continues to have atrial fibrillation. heart rates remain regular. no chest pains. no palpitations. no vomiting. diet transitioned from full liquid to solid diabetic diet Review of Systems Review of Systems: All systems reviewed & are unremarkable except as noted in HPI & below Physical Exam Constitutional: + obese Eyes: PERRL, conjunctivae normal, anicteric sclerae EOM intact bilaterally ENMT: external ear and nose normal, oropharynx normal Neck: normal visual inspection Respiratory: normal respiratory effort, lungs clear to auscultation Cardiovascular: Rate/Rhythm: regular rate and + irregularly irregular Gastrointestinal (Abdomen): Inspection/Auscultation: abdomen normal to inspection and normal bowel sounds Percussion/Palpation: + abdomen tender (tenderness to palpation particularly LLQ) Musculoskeletal: Head/Neck/Chest: normocephalic and head atraumatic Psychiatric: A+Ox3, euthymic affect Results & Data Vital Signs (Past 12 Hours) Vital Signs Temp Pulse Pulse Resp BP Pulse Ox 09/28/19 11:27 36.8 C 75 18 111/57 L 93 09/28/19 07:41 36.7 C 89 18 111/68 98 09/28/19 03:15 36.5 C 72 20 116/72 95 09/28/19 02:34 64
--- NOTE | 2019-09-28 14:21 | Discharge Summary ---
Date of Service September 28, 2019 Admission HPI Per Admitting Provider 78 yo fm with a history of obesity, hyperlipidemia, htn, copd, prior abdominal surgeris including appendectomy, incisional hernia repair, admitted for reports of intermittent rectal bleeding, abdominal pain and abnormal CT showing sigmoid diverticulitis. She was admitted through the ER overnite. Afebrile, on abx currently. This morning- she is sleepy but arousable, reports her pain has improved, no subjective fevers. Does not endorse having a prior colonoscopy. No subjective reports of bleeding today. Her vitals have been relatively stable. She has no other acute complaints other than wanting to sleep as she did not sleep well over nite. Admission Exam Per Admitting Provider GENERAL: The patient is obese, not in acute distress. VITAL SIGNS: Temperature 36.8, pulse 64, respiratory rate 19, blood pressure 127/75, oxygen 95% on 4 liters. HEENT: No pallor, no icterus. Pupils equal, round, and reactive to light. NECK: No JVD, no neck masses, no carotid bruits. CARDIOVASCULAR: S1, S2 heard, regular rate and rhythm, no murmur, no gallop. RESPIRATORY SYSTEM: Normal AP diameter. No accessory muscle use. No wheezing, no crackles. ABDOMEN: Soft, bowel sounds present. Tenderness in the epigastric region and left lower quadrant region. No guarding. No rigidity. No distention. CENTRAL VENOUS SYSTEM: Cranial nerves II-XII grossly nonfocal. EXTREMITIES: No edema, no erythema. Principal Diagnosis acute diverticulitis, rectal bleed reported with initial diverticular bleed suspected, atrial fibrillation which appears to be new onset or newly identified, type 2 diabetes mellitus without complication without longer term current use of insulin, COPD without acute exacerbation with nocturnal hypoxia and on supplementary oxygen with sleep Discharge Exam Constitutional + obese Eyes PERRL, conjunctivae normal, anicteric sclerae EOM intact bilaterally ENMT external ear and nose normal, oropharynx normal Neck normal visual inspection Respiratory normal respiratory effort, lungs clear to auscultation Cardiovascular Rate/Rhythm: regular rate and + irregularly irregular Gastrointestinal (Abdomen) Inspection/Auscultation: abdomen normal to inspection and normal bowel sounds left lower quadrant tenderness on palpation is improved compared to recent days Musculoskeletal Head/Neck/Chest: normocephalic and head atraumatic Psychiatric A+Ox3, euthymic affect Discharge Data Allergies Allergy/AdvReac Type Severity Reaction Status Date / Time salmon oil Allergy Severe HIVES-REDDENED Verified 09/25/19 01:59 ALL OVER Iodinated Contrast Media Allergy Intermediate HIVES-GI Verified 09/25/19 01:59 SYMPTOMS bupropion AdvReac Mild GI SYMPTOMS Verified 09/25/19 01:59 enalapril AdvReac Mild GI SYMPTOMS Verified 09/25/19 01:59 escitalopram AdvReac Mild GI SYMPTOMS Verified 09/25/19 01:59 metoprolol AdvReac Mild LOWERS Verified 09/25/19 01:59 PULSE RATE verapamil AdvReac Mild GI UPSET Verified 09/25/19 15:49 lisinopril AdvReac Unknown FAST HEART Verified 09/25/19 02:00 BEAT valsartan AdvReac Unknown FAST HEART Verified 09/25/19 02:00 BEAT Consultations 09/25/19 00:19 ED Decision to Admit Stat 09/25/19 02:31 Consult Case Management - Discharge Planning Routine 09/25/19 08:00 Consult Gastroenterology Routine 09/27/19 08:00 Consult Cardiology Routine Ordered Studies 09/25/19 02:31 CT abd pelvis IV con only Urgent Hospital Course (1) Diverticulitis: -78-year-old female with past medical history significant for type 2 diabetes, hyperlipidemia, history of hypothyroidism, asthma, COPD, nocturnal hypoxia, using oxygen while sleeping, obstructive sleep apnea, does not use CPAP, hypertension, obesity, irritable bowel syndrome, history of ischemic colitis, generalized osteoarthritis, generalized anxiety disorder, history of diverticulitis and history of multiple admissions for rectal bleed who in the past required blood transfusions from GI bleeds -Patient was evaluated for diverticulitis and abdominal pain and subsequently found to have atrial fibrillation -Patient has lower abdominal pain particularly in the left lower quadrant and reported blood in stool -CT abdomen imaging on admission described acute sigmoid diverticulitis and there was also preliminary radiology concerns for a contained perforation along the sigmoid colon by the stat read radiologist, but on further review by inpatient hospital radiologist who has access to previous hospital imaging studies in the past, that there is no abscess or perforation. Inpatient hospital radiologist confirmed acute divertculitis -initially started on IV ciprofloxacin antibiotic and IV metronidazole on 09/25/19 and then transitioned to oral ciprofloxacin and oral metronidazole by 09/27/19. Patient should continue oral ciprofloxacin 500 mg every 12 hours and oral metronidazole for 10 more days to complete a total of 14 days of antibiotics. discharge medication sent electronically to [facility] [id number] [facility], [place] [address] -diet advanced from liquids to solid diabetic diet by 09/18/19 -Patient should hold off aspirin until diverticulitis resolved to prevent any exacerbation of other rectal bleed -[facility] Gastroenterology Dr. Adame evaluated the patient and recommends out patient colonoscopy in 6-8 weeks ([facility] GI office will call to arrange on discharge; [facility] [address], [place] [address] ) chronic Anemia diverticular bleed was suspected constipation -baseline hemoglobin appears to be between 9 to 11 in the past -Blood counts are stable. admission hemoglobin hemoglobin is 119. no blood transfusions were given. discharge day hemoglobin is 11.3 -bowel movement on 09/26/19 is FOBT negative Atrial Fibrillation -Patient found to have atrial fibrillation that began at 3:30 PM on 09/26/19, heart rates have been regular. but the atrial fibrillation is persistent. -to summarize patient's inpatient cardiology evaluation by inpatient [facility] cardiology service that patient is not advised for systemic anticoagulation for stroke prevention from atrial fibrillation or cardioversion, as this would require systemic anticoagulation) because of gastrointestinal bleed risks, heart rate is controlled on home medication of Cardizem CD 360 mg daily, patient did not tolerate beta blockade in the past prior to this amdission, digoxin can be considered in the future if increases in heart rate, echocardiogram with normal ejection fraction of 50 to 55%. patient will need outpatient followup with usual lead developer Dr. Antelmo Meza who is lead developer in [place], [place]. Should patient prefer to follow-up with [facility] cardiology patient may schedule 2 to 4 weeks after discharge with [facility] [address], [place] [address] scheduled appointments 10/04/2019 12:00 PM Provider Nicolas Oro MD Department General Internal Medicine [facility] 10/11/2019 1:40 PM Provider Cari Wynne PA-C Department Family Practice [facility] 10/11/2019 2:30 PM Provider Nita Enriquez RDN Department Nutrition & Weight Management, [facility] 10/14/2019 1:30 PM [facility] Diabetes mellitus type 2 without skilled nursing current use of insulin -while inpatient, home glimepiride held, currently on insulin sliding scale - HbA1c 6.7 - patient may resume home dose medications on discharge Gastroesophageal reflux disease -Continue PPI Hypertension -Continue home medications of diltiazem hyperlipidemia -Continue statin. Asthma without acute exacerbation COPD without acute exacerbation with nocturnal hypoxia and on supplementary oxygen with sleep Nocturnal hypoxia, Obstructive sleep apnea -continue home inhalers -patient does not use CPAP at night and instead uses oxygen while sleeping Full Code Raciel Styles [phone] Discharge Diagnosis: acute diverticulitis, rectal bleed reported with initial diverticular bleed suspected, atrial fibrillation which appears to be new onset or newly identified, type 2 diabetes mellitus without complication without longer term current use of insulin, COPD without acute exacerbation with nocturnal hypoxia and on supplementary oxygen with sleep Total Time Total Time Spent Total Time Spent (In Minutes): 40 minutes Total Time Includes: Examination of the Patient, Discharge Planning, Medication Reconciliation and Communication With Other Providers Discharge Plan Discharge Items Patient Disposition: Home - Self-Care Reason For Visit: RECTAL BLEED, ABDOMINAL PAIN Discharge Diagnosis: acute diverticulitis, rectal bleed reported with initial diverticular bleed suspected, atrial fibrillation which appears to be new onset or newly identified, type 2 diabetes mellitus without complication without longer term current use of insulin, COPD without acute exacerbation with nocturnal hypoxia and on supplementary oxygen with sleep Condition on Discharge: Good Activity: Resume your previous activity Non-emergency contact: Primary Care Provider and Turning Machine Operator Call non-emergency contact if: you have any medication questions Follow-up/Referrals: Marcela Pinto MD [Primary Care Provider] - Diet: Carb Consistent or DM2 Addtl Attending Provider Instructions: Patient was evaluated for diverticulitis and abdominal pain and subsequently found to have atrial fibrillation initially started on IV ciprofloxacin antibiotic and IV metronidazole on 09/25/19 and then transitioned to oral ciprofloxacin and oral metronidazole by 09/27/19. Patient should continue oral ciprofloxacin 500 mg every 12 hours and oral metronidazole for 10 more days to complete a total of 14 days of antibiotics discharge medication sent electronically to [facility] [address] [place] [id number] Patient should hold off aspirin until diverticulitis resolved to prevent any exacerbation of other rectal bleed Blood counts are stable. admission hemoglobin hemoglobin is 119. no blood transfusions were given. discharge day hemoglobin is 11.[address] [facility] G[address] Adame evaluated the patient and recommends outpatient colonoscopy in 6-8 weeks ([facility] GI office will call to arrange on discharge; [facility] [address], [place] [address] ) patient will need outpatient followup with usual lead developer Dr. Antelmo Meza who is lead developer in [place], [place] for the atrial fibrillation (to summarize patient's inpatient cardiology evaluation by inpatient [facility] cardiology service that patient is not advised for systemic anticoagulation for stroke prevention from atrial fibrillation or cardioversion, as this would require systemic anticoagulation) because of gastrointestinal bleed risks, heart rate is controlled on home medication of Cardizem CD 360 mg daily, patient did not tolerate beta blockade in the past prior to this amdission, digoxin can be considered in the future if increases in heart rate, echocardiogram with normal ejection fraction of 50 to 55%. patient will need outpatient followup with usual lead developer Dr. Antelmo Meza who is lead developer in [place], [place]. Should patient prefer to follow-up with [facility] cardiology patient may schedule 2 to 4 weeks after discharge with [facility] [address], [place] [address] Phone: [phone]) scheduled appointments 10/04/2019 12:00 PM Provider Nicolas Oro MD Department General Internal Medicine [facility] 10/11/2019 1:40 PM Provider Cari Wynne PA-C Department Family Practice [facility] 10/11/2019 2:30 PM Provider Nita Enriquez RDN Department Nutrition & Weight Management, [facility] 10/14/2019 1:30 PM Provider Pablo Chavez [facility] Department Podiatry [facility] Pending Studies at Discharge: No Stand-Alone Forms: My [employer], Smoking Cessation Medications and DC Order Prescriptions: New ciprofloxacin HCl 500 mg tablet 500 mg PO Q12H 10 Days Qty: 20 RF: 0 metronidazole 500 mg tablet 500 mg PO Q8H 10 Days Qty: 30 RF: 0 Continued furosemide [Lasix] 40 mg Tablet 40 mg PO DAILY PRN (Reason: Fluid Retention) RF: 0 atorvastatin 40 mg Tablet 40 mg PO DAILY RF: 0 trazodone 50 mg Tablet 50 mg PO HS RF: 0 hydrocodone-acetaminophen 5-325 mg Tablet 1 tab PO QID PRN (Reason: Pain) RF: 0 diltiazem HCl 360 mg Capsule,Extended Release 24hr 360 mg PO DAILY RF: 0 potassium chloride [Klor-Con M20] 20 mEq Tablet,Er Particles/Crystals 20 meq PO DAILY PRN (Reason: WHEN TAKES LASIX) RF: 0 terazosin 2 mg Capsule 2 mg PO HS RF: 0 dicyclomine 20 mg Tablet 20 mg PO DAILY RF: 0 ferrous sulfate [iron] 325 mg (65 mg iron) Tablet 325 mg PO Q OTHER DAY RF: 0 glimepiride 4 mg Tablet 2 mg PO QAM RF: 0 zafirlukast 20 mg Tablet 20 mg PO DAILY RF: 0 docusate sodium 100 mg Capsule 100 mg PO DAILY RF: 0 omeprazole 20 mg Capsule,Delayed Release(Dr/Ec) 20 mg PO BID RF: 0 cholecalciferol (vitamin D3) [Vitamin D3] 1,000 unit Capsule 1,000 unit PO DAILY RF: 0 Spiriva with HandiHaler 18 mcg Capsule, W/Inhalation Device 1 cap INHALATION DAILY RF: 0 albuterol sulfate 2.5 mg /3 mL (0.083 %) Solution For Nebulization 2.5 mg INHALATION BID PRN (Reason: .WORSENING ASTHMA) RF: 0 Azopt 1 % Drops,Suspension 1 drp OPHTHALMIC (EYE) BID RF: 0 Combivent Respimat 20-100 mcg/actuation Mist 1 puff INHALATION QID RF: 0 Lumigan 0.01 % drops 1 drp OPB HS RF: 0 polyethylene glycol 3350 [Miralax] 17 gram/dose Powder 17 g PO BID RF: 0 Probiotic 3 billion cell Capsule 3,000 mmu cells PO DAILY RF: 0 albuterol sulfate [Ventolin HFA] 90 mcg/actuation HFA aerosol inhaler 2 puff INHALATION QID RF: 0 Discontinued aspirin [Aspir-81] 81 mg Tablet,Delayed Release (Dr/Ec) 81 mg PO DAILY RF: 0 Discharge Orders: Discharge Order (Routine); Ordered 09/28/19 Ordered By: Manuel Sunshine Admission Data Admit Date/Time: 09/25/19 01:41 Attending Provider: Manuel Sunshine Admit Provider: Roberth Liao Primary Care Provider: Marcela Pinto Other Providers: Roberth Liao ; To Cueva ; Cari An ; Kimani Guillen ; Misty Castillo ; Charles Coello ; Zulay Eagle ; Jamarcus Matos ; Rachel Granger ; Mushtaq Roca ; Judson Lloyd ; Courtney Sprague ; Svetlana Villalta ; Lilibeth Edwards ; Marycarmen Adame ; Manju Carrillo ; Moris Mcfarland ; Steven Jama ; Braden Quiles ; Hammad Lopez ; Doug Marks ; Jerry Smith ; Cristiane Murray ; Geri Driscoll ; Darrion Davis
== END 2019-09-28 16:23 | disposition home or self-care (01) | DRG 378 ==
LOC: ED 22:50 → 2W 09-25 01:41

== ENCOUNTER 2020-06-02 11:52 | Inpatient (IN) ==
[2020-06-02] MEDS ORDERED: ONDANSETRON INJ 2 MG/ML 2 ML VIAL IV STA (12:41)
[2020-06-02] MEDS ORDERED: METOCLOPRAMIDE HCL INJ 5 MG/ML 2 ML VIAL IV STA (12:41)
[2020-06-02 13:08] LABS: Basophils # (auto) 0.02 K/uL (0-0.2); Basophils % (auto) 0.2 %; Eosinophils # (auto) 0.29 K/uL (0-0.5); Eosinophils % (auto) 2.7 %; Hemoglobin 11.7 g/dL (12.0-16.0); Immature Granulocytes # (auto) 0.03 K/uL (0.00-0.02); Immature Granulocytes % (auto) 0.3 %; Lymphocytes # (auto) 1.93 K/uL (1.2-3.4); Lymphocytes % (auto) 17.9 %; Mean Corpuscular Hemoglobin 28.1 pg (25-34); Mean Corpuscular Hgb Conc 31.6 g/dL (32-36); Mean Corpuscular Volume 88.7 fL (80-100); Mean Platelet Volume 9.2 fL (7.4-10.4); Monocytes # (auto) 1.18 K/uL (0.11-0.59); Monocytes % (auto) 10.9 %; Neutrophils # (auto) 7.34 K/uL (1.4-6.5); Platelet Count 390 K/uL (130-400); RDW Coefficient of Variation 13.8 % (11.5-14.5); RDW Standard Deviation 44.3 fL (36.4-46.3); Red Blood Count 4.17 M/uL (4.2-5.4); White Blood Count 10.79 K/uL (4.8-10.8)
[2020-06-02] MEDS ORDERED: DiphenhydrAMINE HCL 50 MG/ML VIAL IV STA (13:12)
[2020-06-02] MEDS ORDERED: methylPREDNISolone 125 MG/2 ML VIAL IV STA (13:12)
[2020-06-02 13:27] LABS: Alanine Aminotransferase 13 U/L (12-78); Albumin Level 3.1 gm/dl (3.4-5.0); Aspartate Aminotransferase 12 U/L (15-37); BUN Creatinine Ratio 11.1 (10-20); Blood Urea Nitrogen 11 mg/dl (7-18); Calcium 9.1 mg/dl (8.5-10.1); Carbon Dioxide 31 mmol/L (21-32); Chloride 103 mmol/L (98-107); Creatinine Clr Calc Pharmacy 55.9 ml/min; Est GFR (African American) 64.3; Est GFR (Non-African American) 55.5; Glucose 148 mg/dl (70-99); Lipase 36 U/L (73-393); Potassium 3.9 mmol/L (3.5-5.1); Sodium 139 mmol/L (136-145)
[2020-06-02 13:32] LABS: Albumin Globulin Ratio 0.7 (0.9-2); Alkaline Phosphatase 128 U/L (45-117); Bilirubin,Total 0.3 mg/dl (0.2-1); Globulin 4.7 gm/dl (2.5-4.0); Total Protein 7.8 gm/dl (6.4-8.2); Troponin I < 0.015 ng/ml (0-0.045)
--- NOTE | 2020-06-02 14:01 | Emergency Department Note ---
Impression & Plan Diverticulitis, Nausea, Abdominal pain ED Provider Note NAME: SAVITA YANG AGE: 79 SEX: F : 1940 ARRIVES VIA: Walk-In INFORMANT: Patient, ED PROVIDER(S): Ruben Mason MD Chief Complaint: Nausea, abdominal pain HPI: Patient does present with abdominal pain and nausea. The patient states that her pain is been in the left lower quadrant and intermittent. She describes it as an ache. The patient has had a decrease in bowel movements but is passing flatus. Patient has tried to take Pepto-Bismol and Tums and Zofran without any relief in her symptoms. The patient does complain of nausea which she has had for approximately 9 days. No vomiting fevers or chills. Patient states that she was concerned about a rash within her left intertriginous area. Patient has been applying a salve there. The patient did have a CAT scan completed on Friday but has not had the results back. ROS: See HPI for pertinent positives and negatives. A total of 10 systems were reviewed and otherwise negative. Past medical history: See below Surgical history: See below Social history: See below Physical Exam: GENERAL: Nasal cannula in place, wearing a mask. NAD, non-toxic. EYE EXAM: Normal conjunctiva. PERRL, no anisocoria and EOM's grossly intact w/o pain. NECK: Supple, no nuchal rigidity, no adenopathy, non-tender. No signs of meningismus. LUNGS: Clear to auscultation. Normal chest wall mechanics. HEART: Irregularly irregular, no MRG. ABDOMEN: Abdomen soft, mild left lower quadrant discomfort without peritonitis, normo-active bowel sounds, no masses, no rebound or guarding. BACK: No CVA TTP. SKIN: Mild redness to the left intertriginous area does not appear to be cellulitic, salve has been applied. UPPER EXTREMITIES: Upper extremities are grossly normal. LOWER EXTREMITIES: Grossly normal, no edema. NEURO EXAM: A&O x3, cranial nerves II-XII grossly intact, normal speech, moves all 4 extremities on command w/o issue. Differential diagnoses: Appendicitis, ovarian cyst, ovarian torsion, ectopic , TOA, PID, infections, diverticulitis, UTI, obstruction, mesenteric ischemia, aortic pathology, inflammatory bowel disease, renal colic, PUD, pancreatitis, biliary pathology, hernia, volvulus, constipation, as well as other pathologies. Course: Patient was seen and evaluated the bedside. Full history physical exam was performed. EKG: Location: Nausea A. fib, rate of 69, wide QRS, left axis deviation. Imaging Studies: Radiology results as stated below per my review in the radiologist's interpretation: CT OF THE ABDOMEN AND PELVIS WITH CONTRAST CLINICAL HISTORY: Left lower quadrant abdominal pain. COMPARISON STUDY: CT of the abdomen and pelvis September 25, 2019. TECHNIQUE: Following IV administration of 94 mL of Optiray-320, axial images of the abdomen and pelvis were obtained from the lung bases to the proximal femurs. Images were reviewed in the axial, sagittal, and coronal planes. IV contrast was administered without complication. Automated exposure control was utilized for the study. A dose lowering technique was utilized adhering to the principles of ALARA. Oral contrast was administered FINDINGS: No pneumatosis, free air or portal venous gas is present. Mild dilatation of the common bile duct is unchanged. The gallbladder is likely surgically absent. A left adrenal nodule measuring 2.2 cm is unchanged. The right adrenal gland, spleen and pancreas are unremarkable. There is no peripancreatic infiltration. Bilateral renal lesions favor cysts. There is extensive colonic diverticulosis. 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 There is mild adjacent infiltration. There is also mild wall thickening of the proximal to mid sigmoid colon. There is no free air or abscess. There is fluid and gas within the diverticulum, as before. There are no suspicious osseous lesions. There is no hydronephrosis. 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 Mild adjacent infiltration and mild wall thickening of the proximal to mid sigmoid colon. The findings favor acute sigmoid diverticulitis. A nonspecific colitis could appear similar but is considered less likely. No free air or abscess. ACT 112: Negative or not required by law. Electronically signed by: Shadi Ravi M.D. 06/02/2020 2:48 PM Dictated: 06/02/20 1432 Transcribed: 06/02/20 1432 Cardiac monitoring: An order was placed for continuous cardiac monitoring. The monitor shows a rate of 78 with sinus rhythm. MDM: Patient was seen due to concern for persistent nausea as well as some intermittent left lower quadrant discomfort. Patient did have CT of abdomen pelvis completed as an outpatient but still does not have a result. I did check for this but there is still no impression and it has not been read. Blood work was obtained and the patient was given nausea medication and did have a repeat CT of the abdomen pelvis completed. EKG fairly unremarkable. Patient does have a known history of A. fib. Patient has a normal white counts hemoglobin of 11. The patient's kidney function is unremarkable troponin is undetectable. Urinalysis negative for blood as well as infection. Patient was ordered some Zosyn. I did speak the on-call hospitalist Georgette hebert who evaluated the patient at the bedside. Patient was seen and evaluated Anding in agreement for inpatient care at this time. Patient was admitted to medicine service under Dr. Santiago. Past Med/Surg History Medical History (Updated 06/02/20 @ 16:41 by Ruben Mason MD) Atrial fibrillation CHF (congestive heart failure) Diabetes mellitus, type 2 Diverticulitis Glaucoma of both eyes Hyperlipidemia Hypertension Lower GI bleed Nausea and vomiting after administration of anesthetic agent On home oxygen therapy 2L N/C at all times and 4 L N/C at night Osteoarthritis Sleep apnea Surgical History H/O colonoscopy "04/2014 - diverticular disease throughout colon, internal hemorrhoids, polyp removed" History of appendectomy History of cardiac cath History of cholecystectomy History of dilatation and curettage History of esophagogastroduodenoscopy (EGD) "04/2014 - normal" History of incisional hernia repair History of tooth extraction all teeth Hx of small bowel obstruction "11/2017 - Seen [facility] - surgical intervention" Presence of Watchman left atrial appendage closure device 11/2019 @ [facility] Dr. 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 (work environment); Hx Alcohol Use: No Hx Substance Use: No Preferred Language: Albanian Communication Ability: Effective Cultural Historian Required: No Beliefs That Will Affect Care: None marital status: / Current Living Situation: Alone Feels Safe at Home: Yes Allergies Allergies Allergy/AdvReac Type Severity Reaction Status Date / Time salmon oil Allergy Severe HIVES-REDDENED Verified 06/02/20 12:33 ALL OVER Iodinated Contrast Media Allergy Intermediate HIVES-GI Verified 06/02/20 12:33 SYMPTOMS lisinopril Allergy Intermediate FAST HEART Verified 06/02/20 12:33 BEAT valsartan Allergy Intermediate FAST HEART Verified 06/02/20 12:33 BEAT bupropion AdvReac Mild GI SYMPTOMS Verified 06/02/20 12:33 enalapril AdvReac Mild GI SYMPTOMS Verified 06/02/20 12:33 escitalopram AdvReac Mild GI SYMPTOMS Verified 06/02/20 12:33 metoprolol AdvReac Mild LOWERS Verified 06/02/20 12:33 PULSE RATE verapamil AdvReac Mild GI UPSET, Verified 06/02/20 12:33 fast heart rate Home Meds Home Medications Medication Instructions Recorded Confirmed atorvastatin 40 mg PO HS 06/23/19 06/02/20 cholecalciferol (vitamin D3) 1,000 unit PO QAM 06/23/19 06/02/20 [Vitamin D3] dicyclomine 20 mg PO QAM 06/23/19 06/02/20 diltiazem HCl 360 mg PO QAM 06/23/19 06/02/20 docusate sodium 100 mg PO QAM 06/23/19 06/02/20 hydrocodone-acetaminophen 1 tab PO QID PRN 06/23/19 06/02/20 omeprazole 20 mg PO BID 06/23/19 06/02/20 zafirlukast 20 mg PO QAM 06/23/19 06/02/20 Azopt 1 drp OPHTHALMIC (EYE) BID 09/25/19 06/02/20 Combivent Respimat 1 puff INHALATION QID 09/25/19 06/02/20 Lumigan 1 drp OPB HS 09/25/19 06/02/20 albuterol sulfate 2.5 mg INHALATION BID PRN 09/25/19 06/02/20 albuterol sulfate [Ventolin HFA] 2 puff INHALATION QID PRN 09/25/19 06/02/20 polyethylene glycol 3350 [Miralax] 17 g PO BID PRN 09/25/19 06/02/20 Oxygen Home #1 ea 01/14/20 04/10/20 aspirin 81 mg tablet,delayed 81 mg PO QAM 01/14/20 06/02/20 release potassium chloride 20 mEq 20 meq PO DAILY 01/14/20 06/02/20 tablet,extended release(part/cryst) ferrous sulfate 325 mg (65 mg 325 mg PO QAM tab 02/23/20 06/02/20 iron) tablet furosemide 40 mg tablet 40 mg PO HS tab 02/23/20 06/02/20 glimepiride 4 mg tablet 4 mg PO QAM tab 02/23/20 06/02/20 ondansetron HCl 8 mg tablet 8 mg PO Q8H PRN 02/23/20 06/02/20 umeclidinium 62.5 mcg/actuation 1 puffs INH QAM 04/10/20 06/02/20 blister powder for inhalation multivitamin [Multiple Vitamin] 1 tab PO DAILY 06/02/20 06/02/20 Results & Data (ED) Vital Signs Vital Signs - 24 hr 06/02/20 11:57 06/02/20 12:49 06/02/20 12:50 Temperature 37.3 C Temperature Source Oral Pulse Rate 95 H Pulse Rate [Right Finger] 73 Pulse Rhythm Regular Pulse Rhythm [Right Finger] Pulse Strength Normal Respiratory Rate 22 18 Respiratory Effort / Characteristics Non-Labored Spontaneous Non-Labored Spontaneous Respiratory Depth Normal Normal Respiratory Pattern Regular Regular Blood Pressure 126/64 Blood Pressure [Right Arm] 151/78 H Blood Pressure Mean 84 Blood Pressure Mean [Right Arm] 102 Blood Pressure Position Sitting Blood Pressure Position [Right Arm] Sitting Pulse Oximetry 96 96 98 Oxygen Delivery Method Nasal Cannula Nasal Cannula Nasal Cannula Oxygen Flow Rate 2 2 2 Sepsis Recent Fever Within 48 Hours No Sepsis New/Unexplained Change in Mental Status No Sepsis Action Taken by Nursing No Action Required 06/02/20 14:00 06/02/20 14:20 06/02/20 14:21 Temperature Temperature Source Pulse Rate Pulse Rate [Right Finger] 78 Pulse Rhythm Pulse Rhythm [Right Finger] Irregular Pulse Strength Respiratory Rate 20 22 24 Respiratory Effort / Characteristics Non-Labored Spontaneous Respiratory Depth Respiratory Pattern Blood Pressure 116/66 Blood Pressure [Right Arm] 116/66 Blood Pressure Mean 85 Blood Pressure Mean [Right Arm] 82 Blood Pressure Position Blood Pressure Position [Right Arm] Pulse Oximetry 96 Oxygen Delivery Method Room Air Oxygen Flow Rate 2 Sepsis Recent Fever Within 48 Hours Sepsis New/Unexplained Change in Mental Status Sepsis Action Taken by Nursing 06/02/20 14:30 06/02/20 14:40 06/02/20 14:50 Temperature Temperature Source Pulse Rate 70 70 70 Pulse Rate [Right Finger] Pulse Rhythm Pulse Rhythm [Right Finger] Pulse Strength Respiratory Rate 20 20 18 Respiratory Effort / Characteristics Respiratory Depth Respiratory Pattern Blood Pressure 114/69 Blood Pressure [Right Arm] Blood Pressure Mean 84 Blood Pressure Mean [Right Arm] Blood Pressure Position Blood Pressure Position [Right Arm] Pulse Oximetry Oxygen Delivery Method Oxygen Flow Rate Sepsis Recent Fever Within 48 Hours Sepsis New/Unexplained Change in Mental Status Sepsis Action Taken by Nursing 06/02/20 15:00 06/02/20 15:10 Temperature Temperature Source Pulse Rate 67 64 Pulse Rate [Right Finger] Pulse Rhythm Pulse Rhythm [Right Finger] Pulse Strength Respiratory Rate 19 20 Respiratory Effort / Characteristics Respiratory Depth Respiratory Pattern Blood Pressure 97/62 L Blood Pressure [Right Arm] Blood Pressure Mean 85 Blood Pressure Mean [Right Arm] Blood Pressure Position Blood Pressure Position [Right Arm] Pulse Oximetry 97 Oxygen Delivery Method Nasal Cannula Oxygen Flow Rate 2 Sepsis Recent Fever Within 48 Hours Sepsis New/Unexplained Change in Mental Status Sepsis Action Taken by [facility] Medications Current Medication List: was personally reviewed by me Laboratory Data Attestation: I reviewed the patient's lab results. Result diagrams: 06/02/20 12:52 06/02/20 12:52 Lab Results 06/02/20 06/02/20 06/02/20 Range/Units 12:52 12:52 14:25 WBC 10.79 (4.8-10.8) K/uL RBC 4.17 L (4.2-5.4) M/uL Hgb 11.7 L (12.0-16.0) g/dL Hct 37.0 (37-47) % MCV 88.7 (80-100) fL MCH 28.1 (25-34) pg MCHC 31.6 L (32-36) g/dL RDW Std Deviation 44.3 (36.4-46.3) fL RDW Coeff of Jesika 13.8 (11.5-14.5) % Plt Count 390 (130-400) K/uL MPV 9.2 (7.4-10.4) fL Immature Gran % (Auto) 0.3 % Neut % (Auto) 68.0 % Lymph % (Auto) 17.9 % Gila % (Auto) 10.9 % Eos % (Auto) 2.7 % Baso % (Auto) 0.2 % Neut # (Auto) 7.34 H (1.4-6.5) K/uL Lymph # (Auto) 1.93 (1.2-3.4) K/uL Gila # (Auto) 1.18 H (0.11-0.59) K/uL Eos # (Auto) 0.29 (0-0.5) K/uL Baso # (Auto) 0.02 (0-0.2) K/uL Immature Gran # (Auto) 0.03 H (0.00-0.02) K/uL Sodium 139 (136-145) mmol/L Potassium 3.9 (3.5-5.1) mmol/L Chloride 103 (98-107) mmol/L Carbon Dioxide 31 (21-32) mmol/L Anion Gap 4.0 (3-11) BUN 11 (7-18) mg/dl Creatinine 0.96 (0.6-1.2) mg/dl Est Cr Clr Drug Dosing 55.9 ml/min Est GFR ( Amer) 64.3 Est GFR (Non-Af Amer) 55.5 BUN/Creatinine Ratio 11.1 (10-20) Glucose 148 H (70-99) mg/dl Calcium 9.1 (8.5-10.1) mg/dl Total Bilirubin 0.3 (0.2-1) mg/dl AST 12 L (15-37) U/L ALT 13 (12-78) U/L Alkaline Phosphatase 128 H (45-117) U/L Troponin I < 0.015 (0-0.045) ng/ml Total Protein 7.8 (6.4-8.2) gm/dl Albumin 3.1 L (3.4-5.0) gm/dl Globulin 4.7 H (2.5-4.0) gm/dl Albumin/Globulin Ratio 0.7 L (0.9-2) Lipase 36 L (73-393) U/L Urine Color Dark Yellow Urine Appearance Clear (Clear) Urine pH 7.0 (4.5-7.5) Ur Specific Hammond 1.027 (1.000-1.030) Urine Protein Trace H (Negative) Urine Glucose (UA) Negative (Negative) Urine Ketones Trace H (Negative) Urine Blood Negative (Negative) Urine Nitrite Negative (Negative) Urine Bilirubin Negative (Negative) Urine Urobilinogen Negative (Negative) Ur Leukocyte Esterase 1+ H (Negative) Urine WBC (Auto) 1-5 (0-5) /hpf Urine RBC (Auto) 0-4 (0-4) /hpf U Hyaline Cast (Auto) 1-5 (0-5) /lpf U Epithel Cells (Auto) >30 H (0-5) /lpf Urine Bacteria (Auto) Negative (Negative) Administered Medications Discontinued Medications Hydrocodone Bitart/Acetaminophen (Hydrocodone/Acetamophen 5/325mg Tab) 1 tab PO NOW STA Stop: 06/02/20 14:28 Last Admin: 06/02/20 14:49 Dose: 1 tab Documented by: [id number] Diphenhydramine HCl (Diphenhydramine Hcl 50 Mg/Ml Vial) 12.5 mg IV NOW STA Stop: 06/02/20 13:13 Last Admin: 06/02/20 13:37 Dose: 12.5 mg Documented by: [id number] Piperacillin Sod/Tazobactam Sod (Zosyn) 4.5 gm in 120 mls @ 240 mls/hr IV NOW ONE Stop: 06/02/20 15:21 Last Infusion: 06/02/20 16:00 Dose: 0 mls/hr Documented by: [id number] Admin: 06/02/20 15:23 Dose: 240 mls/hr Documented by: [id number] Ioversol (Ioversol 100ml) 94 ml IV ONCE ONE Stop: 06/02/20 14:07 Last Admin: 06/02/20 14:07 Dose: 94 ml Documented by: [id number] Methylprednisolone (Methylprednisolone 125 Mg/2 Ml Vial) 60 mg IV NOW STA Stop: 06/02/20 13:13 Last Admin: 06/02/20 13:37 Dose: 60 mg Documented by: [id number] Metoclopramide HCl (Metoclopramide Hcl Inj 5 Mg/Ml 2 Ml Vial) 10 mg IV NOW STA Stop: 06/02/20 12:42 Last Admin: 06/02/20 13:15 Dose: 10 mg Documented by: [id number] Ondansetron HCl (Ondansetron Inj 2 Mg/Ml 2 Ml Vial) 4 mg IV NOW STA Stop: 06/02/20 12:42 Last Admin: 06/02/20 13:15 Dose: 4 mg Documented by: [id number] Discharge Plan Visit Data Chief Complaint: Nausea Stated Complaint: SICK IN STOMACH ED Provider: Ruben Mason Discharge Problem: Diverticulitis, Nausea, Abdominal pain Forms Stand Alone Forms: [facility] Prescriptions Prescriptions: No Action Incruse Ellipta 62.5 mcg/actuation blister with device 1 puffs INH QAM RF: 0 ondansetron HCl 8 mg tablet 8 mg PO Q8H PRN (Reason: Nausea) RF: 0 (DME) Oxygen Home Liters Per Minute See Rx Instructions .ROUTE .MEDSUPPLY Qty: 1 RF: 0 aspirin 81 mg tablet,delayed release (DR/EC) 81 mg PO QAM RF: 0 multivitamin [Multiple Vitamin] Tablet 1 tab PO DAILY RF: 0 atorvastatin 40 mg Tablet 40 mg PO HS RF: 0 hydrocodone-acetaminophen 5-325 mg Tablet 1 tab PO QID PRN (Reason: Pain) RF: 0 diltiazem HCl 360 mg Capsule,Extended Release 24hr 360 mg PO QAM RF: 0 dicyclomine 20 mg Tablet 20 mg PO QAM RF: 0 zafirlukast 20 mg Tablet 20 mg PO QAM RF: 0 docusate sodium 100 mg Capsule 100 mg PO QAM RF: 0 omeprazole 20 mg Capsule,Delayed Release(Dr/Ec) 20 mg PO BID RF: 0 cholecalciferol (vitamin D3) [Vitamin D3] 1,000 unit Capsule 1,000 unit PO QAM RF: 0 potassium chloride [Klor-Con M20] 20 mEq tablet,ER particles/crystals 20 meq PO DAILY RF: 0 ferrous sulfate [iron] 325 mg (65 mg iron) tablet 325 mg PO QAM RF: 0 glimepiride 4 mg tablet 4 mg PO QAM RF: 0 furosemide [Lasix] 40 mg tablet 40 mg PO HS RF: 0 albuterol sulfate 2.5 mg /3 mL (0.083 %) Solution For Nebulization 2.5 mg INHALATION BID PRN (Reason: .WORSENING ASTHMA) RF: 0 Azopt 1 % Drops,Suspension 1 drp OPHTHALMIC (EYE) BID RF: 0 Combivent Respimat 20-100 mcg/actuation Mist 1 puff INHALATION QID RF: 0 Lumigan 0.01 % drops 1 drp OPB HS RF: 0 polyethylene glycol 3350 [Miralax] 17 gram/dose Powder 17 g PO BID PRN (Reason: Constipation) RF: 0 albuterol sulfate [Ventolin HFA] 90 mcg/actuation HFA aerosol inhaler 2 puff INHALATION QID PRN (Reason: Shortness Of Breath) RF: 0 Discharge Problem: Abdominal pain Qualifiers: Abdominal location: left lower quadrant Qualified Code(s): R10.32 - Left lower quadrant pain
[2020-06-02] MEDS ORDERED: IOVERSOL 100ml IV ONE (14:06)
[2020-06-02] MEDS ORDERED: HYDROCODONE/ACETAMOPHEN 5/325MG TAB PO STA (14:27)
[2020-06-02 14:44] LABS: Appearance Urine Clear (Clear); Bacteria Urine Automated Negative (Negative); Bilirubin Urine Negative (Negative); Blood Urine Negative (Negative); Color Urine Dark Yellow; Epithelial Cell Urine Auto >30 /lpf (0-5); Glucose Urine UA Negative (Negative); Ketones Urine Trace (Negative); Leukocyte Esterase Urine 1+ (Negative); Nitrite Urine Negative (Negative); Protein Urine Trace (Negative); RBC Urine Automated 0-4 /hpf (0-4); Specific Gravity Urine 1.027 (1.000-1.030); Urobilinogen Urine Negative (Negative)
--- NOTE | 2020-06-02 14:49 | CT Scan Report ---
CT OF THE ABDOMEN AND PELVIS WITH CONTRAST CLINICAL HISTORY: Left lower quadrant abdominal pain. COMPARISON STUDY: CT of the abdomen and pelvis September 25, 2019. TECHNIQUE: Following IV administration of 94 mL of Optiray-320, axial images of the abdomen and pelvi s were obtained from the lung bases to the proximal femurs. Images were reviewed in the axial, sagitt al, and coronal planes. IV contrast was administered without complication. Automated exposure contro l was utilized for the study. A dose lowering technique was utilized adhering to the principles of A FRANCISCO. Oral contrast was administered FINDINGS: No pneumatosis, free air or portal venous gas is present. Mild dilatation of the common luz e duct is unchanged. The gallbladder is likely surgically absent. A left adrenal nodule measuring 2.2 cm is unchanged. The right adrenal gland, spleen and pancreas are unremarkable. There is no peripanc reatic infiltration. Bilateral renal lesions favor cysts. There is extensive colonic diverticulosis. 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 There is mild adjacent infiltration. There is also mild wall thickening of the proximal to mid sigmoid colon. There is no free air or abscess. There is fluid and gas within th e diverticulum, as before. There are no suspicious osseous lesions. There is no hydronephrosis. 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 Mild adjacent infiltration and mild wall thickening of the proximal to mid sigmoid co pamela. The findings favor acute sigmoid diverticulitis. A nonspecific colitis could appear similar but is considered less likely. No free air or abscess. ACT 112: Negative or not required by law. Electronically signed by: Shadi Ravi M.D. 06/02/2020 2:48 PM
[2020-06-02] MEDS ORDERED: PIPERACILL/TAZOBAC CONSULT ACTIVE PRN (14:52)
[2020-06-02] MEDS ORDERED: PIPERACILLIN/TAZOBACTAM 4.5 GM/120 ML BAG IV ONE (14:52)
--- NOTE | 2020-06-02 15:12 | Electrocardiogram Report ---
Test Reason : Blood Pressure : / mmHG Vent. Rate : 069 BPM Atrial Rate : 057 BPM P-R Int : 000 ms QRS Dur : 124 ms QT Int : 406 ms P-R-T Axes : 000 -45 053 degrees QTc Int : 435 ms Atrial fibrillation Left anterior fascicular block Abnormal ECG When compared with ECG of 27-SEP-2019 09:08, T wave amplitude has decreased in Inferior leads Nonspecific T wave abnormality now evident in Anterior leads Nonspecific T wave abnormality has replaced inverted T waves in Lateral leads Confirmed by Mushtaq Addison ([id number]) on 06/02/2020 3:11:49 PM Referred By: REFERRED SELF Confirmed By:Mushtaq Addison
--- NOTE | 2020-06-02 16:55 | History & Physical Report ---
Date of Service June 02, 2020 Assessment & Plan (1) Diverticulitis: -Admit to [facility] -Patient presenting from home with reports of persistent nausea and mild left- sided abdominal pain -In the ED, CT ABD/pelvis showing acute sigmoid diverticulitis -Afebrile, no leukocytosis; does not appear septic -S/p IV Zosyn in the ED, will continue with -Continue supportive care with IVF, pain and nausea control -Full liquid diet, advance as tolerated -Noted recent colonoscopy 05/08/2020: Diverticulosis of sigmoid and descending colon noted; EGD performed on same day was unremarkable. (2) Diabetes mellitus, type 2: -Hgb A1c 7.0 02/2020 -Hold oral agents and utilize NovoLog per protocol while hospitalized (3) Paroxysmal atrial fibrillation: -EKG demonstrates rate controlled atrial fibrillation -On diltiazem for rate control, will continue -Not anticoagulated due to history of GI bleeding. S/p watchman procedure (4) Chronic diastolic CHF (congestive heart failure): -Patient appears euvolemic -Hold furosemide due to acute illness and while receiving IVF -Monitor volume status closely (5) Asthma: (6) COPD (chronic obstructive pulmonary disease): -Appears stable, no signs of acute exacerbation -Saturating well on chronic 2 L of oxygen -Continue home inhalers (7) DVT prophylaxis: -SCDs due to history of GI bleeding and current diverticulitis History of Present Illness Chief Complaint: Nausea Primary Care Provider: Marcela Pinto MD 79-year-old female with PMH DM type II, asthma, COPD, chronic hypoxic respir atory failure on home O2, paroxysmal atrial fibrillation status post watchman procedure, chronic diastolic CHF, and other problems listed below who presents the ED for evaluation of nausea. Patient was seen by her PCP on 05/18 for complaints of nausea and left-sided abdominal pain. She was given prescriptions for Cipro and Flagyl and was instructed to start taking if her symptoms worsened. Patient reports she took the antibiotics for 2 days last week however felt as though they made her more nauseous so she therefore stopped. Patient reports ongoing nausea and some intermittent left-sided abdominal pain. She reports that abdominal pain has been mild. She has not had any vomiting. She has had a very poor appetite with poor p.o. intake. No diarrhea, reports she feels as though she is constipated. Denies chest pain, shortness of breath, palpitations. Reports of intermittent episodes of lightheadedness and dizziness however no syncopal event. No fevers or chills. She denies any urinary symptoms. In the ED, CT ABD/pelvis show signs of acute sigmoid diverticulitis. Patient is afebrile, no leukocytosis. She was given IV Zosyn, IV Zofran, IV Reglan, p.o. hydrocodone/acetaminophen. She also received IV diphenhydramine and IV Solu-Medrol for premedication for CT dye. Allergies Allergy/AdvReac Type Severity Reaction Status Date / Time salmon oil Allergy Severe HIVES-REDDENED Verified 06/02/20 12:33 ALL OVER Iodinated Contrast Media Allergy Intermediate HIVES-GI Verified 06/02/20 12:33 SYMPTOMS lisinopril Allergy Intermediate FAST HEART Verified 06/02/20 12:33 BEAT valsartan Allergy Intermediate FAST HEART Verified 06/02/20 12:33 BEAT bupropion AdvReac Mild GI SYMPTOMS Verified 06/02/20 12:33 enalapril AdvReac Mild GI SYMPTOMS Verified 06/02/20 12:33 escitalopram AdvReac Mild GI SYMPTOMS Verified 06/02/20 12:33 metoprolol AdvReac Mild LOWERS Verified 06/02/20 12:33 PULSE RATE verapamil AdvReac Mild GI UPSET, Verified 06/02/20 12:33 fast heart rate Home Medications Home Medications Medication Instructions Recorded Confirmed Type atorvastatin 40 mg PO HS 06/23/19 06/02/20 History cholecalciferol (vitamin D3) 1,000 unit PO QAM 06/23/19 06/02/20 History [Vitamin D3] dicyclomine 20 mg PO QAM 06/23/19 06/02/20 History diltiazem HCl 360 mg PO QAM 06/23/19 06/02/20 History docusate sodium 100 mg PO QAM 06/23/19 06/02/20 History hydrocodone-acetaminophen 1 tab PO QID PRN 06/23/19 06/02/20 History omeprazole 20 mg PO BID 06/23/19 06/02/20 History zafirlukast 20 mg PO QAM 06/23/19 06/02/20 History Azopt 1 drp OPHTHALMIC (EYE) BID 09/25/19 06/02/20 History Combivent Respimat 1 puff INHALATION QID 09/25/19 06/02/20 History Lumigan 1 drp OPB HS 09/25/19 06/02/20 History albuterol sulfate 2.5 mg INHALATION BID PRN 09/25/19 06/02/20 History albuterol sulfate [Ventolin HFA] 2 puff INHALATION QID PRN 09/25/19 06/02/20 History polyethylene glycol 3350 [Miralax] 17 g PO BID PRN 09/25/19 06/02/20 History Oxygen Home #1 ea 01/14/20 04/10/20 History aspirin 81 mg tablet,delayed 81 mg PO QAM 01/14/20 06/02/20 History release potassium chloride 20 mEq 20 meq PO DAILY 01/14/20 06/02/20 History tablet,extended release(part/cryst) ferrous sulfate 325 mg (65 mg 325 mg PO QAM tab 02/23/20 06/02/20 History iron) tablet furosemide 40 mg tablet 40 mg PO HS tab 02/23/20 06/02/20 History glimepiride 4 mg tablet 4 mg PO QAM tab 02/23/20 06/02/20 History ondansetron HCl 8 mg tablet 8 mg PO Q8H PRN 02/23/20 06/02/20 History umeclidinium 62.5 mcg/actuation 1 puffs INH QAM 04/10/20 06/02/20 History blister powder for inhalation multivitamin [Multiple Vitamin] 1 tab PO DAILY 06/02/20 06/02/20 History Past Med/Surg History Medical History Asthma Chronic diastolic CHF (congestive heart failure) COPD (chronic obstructive pulmonary disease) Diabetes mellitus, type 2 Diverticulosis Esophageal reflux Glaucoma of both eyes Hyperlipidemia Hypertension Lower GI bleed Nausea and vomiting after administration of anesthetic agent Nocturnal hypoxemia On home oxygen therapy 2L N/C at all times and 4 L N/C at night Osteoarthritis Paroxysmal atrial fibrillation Sleep apnea Surgical History H/O colonoscopy "04/2014 - diverticular disease throughout colon, internal hemorrhoids, polyp removed" History of appendectomy History of cardiac cath History of cholecystectomy History of dilatation and curettage History of esophagogastroduodenoscopy (EGD) "04/2014 - normal" History of incisional hernia repair History of tooth extraction all teeth Hx of small bowel obstruction "11/2017 - Seen [facility] - surgical intervention" Presence of Watchman left atrial appendage closure device 11/2019 @ [facility] Dr. 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 Beliefs That Will Affect Care: None marital status: / Current Living Situation: Alone Feels Safe at Home: Yes Safety Concerns: Feels Safe At This Time Review of Systems Review of Systems: ROS per HPI, all other systems reviewed and negative Physical Exam Constitutional: WD/WN, vitals as above Eyes: PERRL, conjunctivae normal, anicteric sclerae ENMT: external ear and nose normal, oropharynx normal Respiratory: normal respiratory effort, lungs clear to auscultation Cardiovascular: Rate/Rhythm: regular rate and + irregularly irregular Vessels: normal peripheral pulses Extremities: no edema Gastrointestinal (Abdomen): Inspection/Auscultation: normal bowel sounds; abdomen not distended Percussion/Palpation: + abdomen tender (Mild, left abdomen) and abdomen soft; no guarding, abdomen not rigid and no hepatosplenomegaly Musculoskeletal: no cyanosis or clubbing, extremities motor strength 5/5 Skin: no rashes, warm and dry Neurologic: PERRL, EOMI, accommodation nl, no face palsy, no dysarthria Psychiatric: A+Ox3, euthymic affect Results & Data Results & Data ([facility]) Vital Signs (Past 12 Hours) Vital Signs Temp Pulse Pulse Resp BP BP Pulse Ox 06/02/20 15:10 64 20 97 06/02/20 15:00 67 19 97/62 L 06/02/20 14:50 70 18 06/02/20 14:40 70 20 06/02/20 14:30 70 20 114/69 06/02/20 14:21 24 06/02/20 14:20 78 22 116/66 96 06/02/20 14:00 20 116/66 06/02/20 12:50 73 18 151/78 H 98 06/02/20 12:49 96 06/02/20 11:57 37.3 C 95 H 22 126/64 96 Laboratory Results Short CBC 06/02/20 Range/Units 12:52 WBC 10.79 (4.8-10.8) K/uL Hgb 11.7 L (12.0-16.0) g/dL Hct 37.0 (37-47) % Plt Count 390 (130-400) K/uL BMP 06/02/20 12:52 Sodium 139 Potassium 3.9 Chloride 103 Carbon Dioxide 31 BUN 11 Creatinine 0.96 Glucose 148 H Calcium 9.1 Cardiac Enzymes 06/02/20 Range/Units 12:52 Troponin I < 0.015 (0-0.045) ng/ml Liver Function 06/02/20 Range/Units 12:52 Total Bilirubin 0.3 (0.2-1) mg/dl AST 12 L (15-37) U/L ALT 13 (12-78) U/L Alkaline Phosphatase 128 H (45-117) U/L Albumin 3.1 L (3.4-5.0) gm/dl Urine 06/02/20 Range/Units 14:25 Urine Color Dark Yellow Urine Appearance Clear (Clear) Urine pH 7.0 (4.5-7.5) Ur Specific [place] 1.027 (1.000-1.030) Urine Protein Trace H (Negative) Urine Glucose (UA) Negative (Negative) Diagnostic Findings CT ABD/PELVIS IMPRESSION: Redemonstration of a giant diverticulum of the proximal sigmoid colon which was present on prior exams. Mild adjacent infiltration and mild wall thickening of the proximal to mid sigmoid colon. The findings favor acute sigmoid diverticulitis. A nonspecific colitis could appear similar but is considered less likely. No free air or abscess. Code Status & VTE Plan Code Status Patient is a full code as per my discussion with her. VTE Prophylaxis Plan VTE Prophylaxis will be ordered: Yes Supervising Physician Co-Signing Physician Notes Patient seen and examined by me, care coordinated with NIECY Trejo, please refer to her note above for further detail. Pt is an 79 y/o female with hx of DM type II, asthma, COPD, chronic hypoxic respiratory failure on home O2, paroxysmal atrial fibrillation status post watchman procedure, chronic diastolic CHF, who presents for evaluation of nausea. Patient was seen by her PCP on 05/18 for complaints of nausea and left- sided abdominal pain. She was given prescriptions for Cipro and Flagyl and was instructed to start taking if her symptoms worsened. Patient reports she took the antibiotics for 2 days, then stopped as she felt she was not feeling any better. No diarrhea, reports she feels constipated. Denies chest pain, shortness of breath, palpitations. No fevers or chills. In the ED, CT ABD/pelvis show signs of acute sigmoid diverticulitis. Patient is afebrile, no leukocytosis. She was given IV Zosyn, IV Zofran. She also received IV Solu-Medrol for premedication for CT dye. Currently she is lying in bed, in no acute distress. Her daughter is at the bedside. Patient is alert and oriented and answering questions appropriately. She is currently on supplemental oxygen, which is her baseline, her lung sounds somewhat diminished, however no wheezing rhonchi or crackles noted. Heart sounds irregular. Abdomen is soft, nondistended, positive bowel sounds, there is tenderness to palpation at left lower quadrant and somewhat also at the left upper quadrant. Patient is moving all 4 extremities spontaneously and without difficulty, there is a no lower extremity edema noted. Skin is warm, dry, without any rashes or lesions. Patient was already started on IV Zosyn in the ED, will continue. Plan to swi tch to to p.o. antibiotics when the patient's nausea resolves. Robert Santiago MD
[2020-06-02] MEDS ORDERED: ACETAMINOPHEN 325 MG TAB PO PRN (17:10)
[2020-06-02] MEDS ORDERED: IPRATROPIUM BROMIDE/ALBUTEROL respimat INH INH SCH (17:10)
[2020-06-02] MEDS: SODIUM CHLORIDE 0.9% 1000ML 1,000 ML IV SCH (17:38)
[2020-06-02] MEDS: PIPERACILLIN/TAZOBACTAM 4.5 GM in DEXTROSE 5% 100 ML IV SCH (20:12)
[2020-06-02] MEDS: ATORVASTATIN 40 MG TAB PO SCH (20:12)
[2020-06-02] MEDS: BIMATOPROST 0.01% OP SOLN 2.5 ML BTL OP SCH (20:13)
[2020-06-02] MEDS: PANTOprazole 40 MG TAB PO SCH (20:13)
[2020-06-02] MEDS: BRINZOLAMIDE (AZOPT) OPS 10 ML BTL OP SCH (20:13)
[2020-06-02] MEDS ORDERED: GLUCAGON FOR INJ 1 MG VIAL IM PRN (21:45)
[2020-06-02] MEDS ORDERED: GLUCOSE 40% GEL 15 GM TUBE PO PRN (21:45)
[2020-06-02] MEDS ORDERED: GLUCOSE 10 TABS/TUBE PO PRN (21:45)
[2020-06-02] MEDS ORDERED: DEXTROSE 50% 50 ML SYRINGE IV PRN (21:45)
[2020-06-02] MEDS ORDERED: CARBOHYDRATES FOR HYPOGLYCEMIA PO PRN (21:45)
[2020-06-02] MEDS: INSULIN ASPART 100 UNITS/ML 3 ML PEN SC SCH (22:07)
[2020-06-02] MEDS: ONDANSETRON INJ 2 MG/ML 2 ML VIAL IV PRN (22:09)
[2020-06-02] MEDS: HYDROCODONE/ACETAMOPHEN 5/325MG TAB PO PRN (22:09)
[2020-06-02] MEDS: ALBUTEROL HFA 8 GM INHALER INH SCH (22:12)
[2020-06-02] MEDS: IPRATROPIUM BROMIDE HFA INHALER INH SCH (22:12)
[2020-06-03] MEDS: PIPERACILLIN/TAZOBACTAM 4.5 GM in DEXTROSE 5% 100 ML IV SCH ×3 (04:23→20:19)
[2020-06-03] MEDS: SODIUM CHLORIDE 0.9% 1000ML 1,000 ML IV SCH (04:35)
[2020-06-03] MEDS: HYDROCODONE/ACETAMOPHEN 5/325MG TAB PO PRN ×3 (05:45→23:45)
[2020-06-03] MEDS: ONDANSETRON INJ 2 MG/ML 2 ML VIAL IV PRN ×3 (05:45→20:33)
[2020-06-03] MEDS: ALBUTEROL HFA 8 GM INHALER INH SCH ×4 (07:26→19:20)
[2020-06-03] MEDS: IPRATROPIUM BROMIDE HFA INHALER INH SCH ×4 (07:26→19:20)
[2020-06-03 08:06] LABS: Hematocrit (blood only) 34.9 % (37-47); Hemoglobin 11.2 g/dL (12.0-16.0); Mean Corpuscular Hemoglobin 28.7 pg (25-34); Mean Corpuscular Hgb Conc 32.1 g/dL (32-36); Mean Corpuscular Volume 89.5 fL (80-100); Mean Platelet Volume 9.6 fL (7.4-10.4); Platelet Count 404 K/uL (130-400); RDW Coefficient of Variation 13.6 % (11.5-14.5); RDW Standard Deviation 44.5 fL (36.4-46.3); White Blood Count 10.21 K/uL (4.8-10.8)
[2020-06-03] MEDS: DICYCLOMINE HCL 20 MG TAB PO SCH (08:20)
[2020-06-03] MEDS: PANTOprazole 40 MG TAB PO SCH ×2 (08:20→20:20)
[2020-06-03] MEDS: ASPIRIN 81 MG ECTAB PO SCH (08:20)
[2020-06-03] MEDS: dilTIAZem HCL 180 MG CAPCR PO SCH (08:21)
[2020-06-03] MEDS: FERROUS SULFATE 325 MG TAB PO SCH (08:21)
[2020-06-03] MEDS: UMECLIDINIUM BROMIDE 62.5MCG/BLISTER 7 PUFFS/INHALER INH SCH (08:21)
[2020-06-03] MEDS: BRINZOLAMIDE (AZOPT) OPS 10 ML BTL OP SCH ×2 (08:22→20:19)
[2020-06-03] MEDS: INSULIN ASPART 100 UNITS/ML 3 ML PEN SC SCH ×4 (08:23→20:20)
[2020-06-03 08:27] LABS: BUN Creatinine Ratio 12.4 (10-20); Calcium 9.9 mg/dl (8.5-10.1); Creatinine Clr Calc Pharmacy 64.6 ml/min; Est GFR (African American) 76.6; Est GFR (Non-African American) 66.1; Potassium 3.9 mmol/L (3.5-5.1)
[2020-06-03] MEDS ORDERED: POLYETHYLENE (MIRALAX) 17 GM PACK PO PRN (10:42)
[2020-06-03] MEDS: CALCIUM CARBONATE 500 MG CHEWABLE TAB PO PRN (14:21)
--- NOTE | 2020-06-03 14:27 | Hospitalist Progress Note ---
Date of Service June 03, 2020 Assessment & Plan (1) Diverticulitis: -Admit to [facility] -Patient presenting from home with reports of persistent nausea and mild left- sided abdominal pain -In the ED, CT ABD/pelvis showing acute sigmoid diverticulitis -Afebrile, no leukocytosis; does not appear septic -S/p IV Zosyn in the ED, will continue with -Continue supportive care with IVF, pain and nausea control -Full liquid diet, advance as tolerated -No evidence of abscess and/or perforation -We will continue current intravenous antibiotic Constipation We will try MiraLAX Status post endoscopies -Noted recent colonoscopy 05/08/2020: Diverticulosis of sigmoid and descending colon noted; EGD performed on same day was unremarkable. (2) Diabetes mellitus, type 2: -Hgb A1c 7.0 02/2020 -Hold oral agents and utilize NovoLog per protocol while hospitalized (3) Paroxysmal atrial fibrillation: -EKG demonstrates rate controlled atrial fibrillation -On diltiazem for rate control, will continue -Not anticoagulated due to history of GI bleeding. S/p watchman procedure (4) Chronic diastolic CHF (congestive heart failure): -Patient appears euvolemic -Hold furosemide due to acute illness and while receiving IVF -No evidence of fluid overload (5) Asthma: (6) COPD (chronic obstructive pulmonary disease): -Appears stable, no signs of acute exacerbation -Saturating well on chronic 2 L of oxygen -Continue home inhalers (7) DVT prophylaxis: -SCDs due to history of GI bleeding and current diverticulitis Admission and Anticipated Discharge Date Admission Date: June 02, 2020 Subjective 06/03/2020 The patient was seen and examined in medical floor She has been complaining of ongoing nausea without vomiting Her left lower quadrant pain is much better No fever and/or chills Review of Systems Review of Systems: All systems reviewed and are unremarkable except as noted below Gastrointestinal: + abdominal pain (Left lower quadrant), + bloating and + nausea; no vomiting Physical Exam Physical Exam: Lying in bed with some discomfort due to nausea and abdominal pain Constitutional: well developed, well nourished, + acute distress, + ill appearing and + obese Eyes: PERRL, conjunctivae normal, anicteric sclerae ENMT: external ear and nose normal, oropharynx normal Neck: trachea midline, no thyromegaly Respiratory: normal respiratory effort; no respiratory distress Auscultation: lungs clear to auscultation bilaterally Cardiovascular: Rate/Rhythm: regular rate and regular rhythm Heart Sounds: no murmur Extremities: + pedal edema (Trace edema bilaterally) Gastrointestinal (Abdomen): Inspection/Auscultation: abdomen normal to inspection and normal bowel sounds; abdomen not distended Percussion/Palpation: + abdomen tender (Left lower quadrant without any guarding and no rigidity) Musculoskeletal: No acute arthritis involving any joints Neurologic: Alert, awake and oriented x3 Results & Data Results & Data ([facility]) Vital Signs (Past 12 Hours) Vital Signs Pulse Resp Pulse Ox 06/03/20 11:14 78 18 97 06/03/20 07:28 83 18 97 Laboratory Results Short CBC 06/03/20 Range/Units 07:20 WBC 10.21 (4.8-10.8) K/uL Hgb 11.2 L (12.0-16.0) g/dL Hct 34.9 L (37-47) % Plt Count 404 H (130-400) K/uL BMP 06/03/20 07:20 Sodium 138 Potassium 3.9 Chloride 102 Carbon Dioxide 30 BUN 10 Creatinine 0.83 Glucose 160 H Calcium 9.9 Urine 06/02/20 Range/Units 14:25 Urine Color Dark Yellow Urine Appearance Clear (Clear) Urine pH 7.0 (4.5-7.5) Ur Specific [place] 1.027 (1.000-1.030) Urine Protein Trace H (Negative) Urine Glucose (UA) Negative (Negative) Medications Administered Current Inpatient Medications Acetaminophen (Acetaminophen 325 Mg Tab) 650 mg PO Q4H PRN PRN Reason: pain/fever Stop: 07/02/20 17:09 Hydrocodone Bitart/Acetaminophen (Hydrocodone/Acetamophen 5/325mg Tab) 1 tab PO QID PRN PRN Reason: Pain Stop: 06/16/20 17:14 Last Admin: 06/03/20 14:09 Dose: 1 tab Documented by: Albuterol (Albuterol Hfa 8 Gm Inhaler) 1 puffs INH QIDR [facility] Stop: 07/02/20 20:29 Last Admin: 06/03/20 11:10 Dose: 1 puffs Documented by: Aspirin (Aspirin 81 Mg Ectab) 81 mg PO QAM [facility] Stop: 07/03/20 08:59 Last Admin: 06/03/20 08:20 Dose: 81 mg Documented by: Atorvastatin Calcium (Atorvastatin 40 Mg Tab) 40 mg PO HS [facility] Stop: 07/02/20 20:59 Last Admin: 06/02/20 20:12 Dose: 40 mg Documented by: Bimatoprost (Bimatoprost 0.01% Op Soln 2.5 Ml Btl) 1 drops OP HS [facility] Stop: 07/02/20 20:59 Last Admin: 06/02/20 20:13 Dose: 1 drops Documented by: Brinzolamide (Brinzolamide (Azopt) Ops 10 Ml Btl) 1 drops OP BID [facility] Stop: 07/02/20 20:59 Last Admin: 06/03/20 08:22 Dose: 1 drops Documented by: Calcium Carbonate (Calcium Carbonate 500 Mg Chewable Tab) 1,000 mg PO QID PRN PRN Reason: Indigestion Stop: 07/03/20 14:14 Last Admin: 06/03/20 14:21 Dose: 1,000 mg Documented by: Dextrose (Dextrose 50% 50 Ml Syringe) 25 - 50 ml IV UD PRN; Protocol PRN Reason: Hypoglycemia Protocol Stop: 07/02/20 21:44 Dicyclomine HCl (Dicyclomine Hcl 20 Mg Tab) 20 mg PO QAM [facility] Stop: 07/03/20 08:59 Last Admin: 06/03/20 08:20 Dose: 20 mg Documented by: Diltiazem HCl (Diltiazem Hcl 180 Mg Capcr) 360 mg PO QAM [facility] Stop: 07/03/20 08:59 Last Admin: 06/03/20 08:21 Dose: 360 mg Documented by: Ferrous Sulfate (Ferrous Sulfate 325 Mg Tab) [facility] Stop: 07/03/20 08:59 Last Admin: 06/03/20 08:21 Dose: 325 mg Documented by: Glucagon (Glucagon For Inj 1 Mg Vial) 1 mg IM UD PRN; Protocol PRN Reason: Hypoglycemia Protocol Stop: 07/02/20 21:44 Glucose (Glucose 40% Gel 15 Gm Tube) 15 - 30 gm PO UD PRN; Protocol PRN Reason: Hypoglycemia Protocol Stop: 07/02/20 21:44 Glucose (Glucose 10 Tabs/Tube) 4 - 8 tabs PO UD PRN; Protocol PRN Reason: Hypoglycemia Protocol Stop: 09/20/20 21:44 Piperacillin Sod/Tazobactam (Sod 4.5 gm/ Dextrose) 120 mls @ 30 mls/hr IV Q8H [facility]; Protocol Stop: 06/12/20 19:59 Last Admin: 06/03/20 12:27 Dose: 30 mls/hr Documented by: Promethazine HCl 12.5 mg/ (Sodium Chloride) 50.5 mls @ 202 mls/hr IV Q6H PRN PRN Reason: Nausea And Vomiting Stop: 07/03/20 14:14 Insulin Aspart (Insulin Aspart 100 Units/Ml 3 Ml Pen) 0 units SC ACHS [facility] Stop: 07/03/20 07:29 Last Admin: 06/03/20 12:26 Dose: 3 units Documented by: Ipratropium [place] (Ipratropium [place] Hfa Inhaler) 1 puffs INH QIDR [facility] Stop: 07/02/20 20:29 Last Admin: 06/03/20 11:10 Dose: 1 puffs Documented by: Miscellaneous (Zafirlukast 20 Mg Order Awaiting Action) 1 ea N/A QS [facility] Stop: 07/03/20 00:00 Last Admin: 06/03/20 08:22 Dose: Not Given Documented by: Miscellaneous (Carbohydrates For Hypoglycemia ) 15 - 30 gm PO UD PRN PRN Reason: Hypoglycemia Treatment Stop: 07/02/20 21:44 Miscellaneous Information (Piperacill/Tazobac Consult Active) 1 ea N/A UD PRN PRN Reason: Consult Stop: 07/02/20 14:51 Ondansetron HCl (Ondansetron Inj 2 Mg/Ml 2 Ml Vial) 4 mg IV Q6H PRN PRN Reason: nausea Stop: 07/02/20 17:09 Last Admin: 06/03/20 12:34 Dose: 4 mg Documented by: Pantoprazole Sodium (Pantoprazole 40 Mg Tab) 40 mg PO BID [facility]; Protocol Stop: 07/02/20 20:59 Last Admin: 06/03/20 08:20 Dose: 40 mg Documented by: Polyethylene Glycol (Polyethylene (Miralax) 17 Gm Pack) 17 gm PO DAILY PRN PRN Reason: Constipation Stop: 07/03/20 10:41 Umeclidinium [place] (Umeclidinium [place] 62.5mcg/Blister 7 Puffs/Inhaler) 1 puffs INH QAM [facility] Stop: 07/03/20 08:59 Last Admin: 06/03/20 08:21 Dose: 1 puffs Documented by:
[2020-06-03] MEDS: PROMETHAZINE HCL 12.5 MG in SODIUM CHLORIDE 0.9% 50 ML IV PRN ×2 (16:26→23:44)
[2020-06-03] MEDS: BIMATOPROST 0.01% OP SOLN 2.5 ML BTL OP SCH (20:19)
[2020-06-03] MEDS: ATORVASTATIN 40 MG TAB PO SCH (20:22)
[2020-06-04] MEDS: PIPERACILLIN/TAZOBACTAM 4.5 GM in DEXTROSE 5% 100 ML IV SCH ×3 (04:49→20:58)
[2020-06-04] MEDS: ONDANSETRON INJ 2 MG/ML 2 ML VIAL IV PRN ×3 (04:56→21:03)
[2020-06-04] MEDS: ALBUTEROL HFA 8 GM INHALER INH SCH ×4 (06:53→19:14)
[2020-06-04] MEDS: IPRATROPIUM BROMIDE HFA INHALER INH SCH ×4 (06:53→19:14)
[2020-06-04 07:15] LABS: Basophils # (auto) 0.03 K/uL (0-0.2); Basophils % (auto) 0.3 %; Eosinophils # (auto) 0.19 K/uL (0-0.5); Eosinophils % (auto) 1.6 %; Hematocrit (blood only) 37.7 % (37-47); Hemoglobin 11.7 g/dL (12.0-16.0); Immature Granulocytes # (auto) 0.03 K/uL (0.00-0.02); Immature Granulocytes % (auto) 0.3 %; Lymphocytes # (auto) 3.64 K/uL (1.2-3.4); Lymphocytes % (auto) 30.7 %; Mean Corpuscular Hemoglobin 28.3 pg (25-34); Mean Corpuscular Volume 91.3 fL (80-100); Mean Platelet Volume 9.3 fL (7.4-10.4); Monocytes # (auto) 1.33 K/uL (0.11-0.59); Monocytes % (auto) 11.2 %; Neutrophils # (auto) 6.65 K/uL (1.4-6.5); Neutrophils % (auto) 55.9 %; Platelet Count 433 K/uL (130-400); RDW Coefficient of Variation 13.8 % (11.5-14.5); RDW Standard Deviation 45.6 fL (36.4-46.3); Red Blood Count 4.13 M/uL (4.2-5.4); White Blood Count 11.87 K/uL (4.8-10.8)
[2020-06-04 07:38] LABS: BUN Creatinine Ratio 9.4 (10-20); Calcium 9.3 mg/dl (8.5-10.1); Creatinine Clr Calc Pharmacy 51.6 ml/min; Est GFR (African American) 58.4; Est GFR (Non-African American) 50.3; Potassium 3.8 mmol/L (3.5-5.1)
[2020-06-04] MEDS: BRINZOLAMIDE (AZOPT) OPS 10 ML BTL OP SCH ×2 (08:02→20:53)
[2020-06-04] MEDS: ASPIRIN 81 MG ECTAB PO SCH (08:02)
[2020-06-04] MEDS: PANTOprazole 40 MG TAB PO SCH ×2 (08:02→20:54)
[2020-06-04] MEDS: DICYCLOMINE HCL 20 MG TAB PO SCH (08:03)
[2020-06-04] MEDS: UMECLIDINIUM BROMIDE 62.5MCG/BLISTER 7 PUFFS/INHALER INH SCH (08:03)
[2020-06-04] MEDS: dilTIAZem HCL 180 MG CAPCR PO SCH (08:03)
[2020-06-04] MEDS: FERROUS SULFATE 325 MG TAB PO SCH (08:03)
[2020-06-04] MEDS: INSULIN ASPART 100 UNITS/ML 3 ML PEN SC SCH ×4 (08:07→21:18)
[2020-06-04] MEDS: HYDROCODONE/ACETAMOPHEN 5/325MG TAB PO PRN ×2 (08:12→21:03)
--- NOTE | 2020-06-04 13:15 | Hospitalist Progress Note ---
Date of Service June 04, 2020 Assessment & Plan (1) Diverticulitis: -Admit to [facility] -Patient presenting from home with reports of persistent nausea and mild left- sided abdominal pain -In the ED, CT ABD/pelvis showing acute sigmoid diverticulitis -Afebrile, no leukocytosis; does not appear septic -S/p IV Zosyn in the ED, will continue with -Continue supportive care with IVF, pain and nausea control -Full liquid diet, advance as tolerated -No evidence of abscess and/or perforation -We will continue current intravenous antibiotic -Clinically elevated with better Constipation We will try MiraLAX Bowel has not moved it we will continue MiraLAX for now Status post endoscopies -Noted recent colonoscopy 05/08/2020: Diverticulosis of sigmoid and descending colon noted; EGD performed on same day was unremarkable. (2) Diabetes mellitus, type 2: -Hgb A1c 7.0 02/2020 -Hold oral agents and utilize NovoLog per protocol while hospitalized (3) Paroxysmal atrial fibrillation: -EKG demonstrates rate controlled atrial fibrillation -On diltiazem for rate control, will continue -Not anticoagulated due to history of GI bleeding. S/p watchman procedure (4) Chronic diastolic CHF (congestive heart failure): -Patient appears euvolemic -Hold furosemide due to acute illness and while receiving IVF -No evidence of fluid overload (5) Asthma: (6) COPD (chronic obstructive pulmonary disease): -Appears stable, no signs of acute exacerbation -Saturating well on chronic 2 L of oxygen -Continue home inhalers (7) DVT prophylaxis: -SCDs due to history of GI bleeding and current diverticulitis Admission and Anticipated Discharge Date Admission Date: June 02, 2020 Subjective 06/03/2020 The patient was seen and examined in medical floor She has been complaining of ongoing nausea without vomiting Her left lower quadrant pain is much better No fever and/or chills 06/04/2020 The patient was seen and examined in medical control She has been feeling a little better but he still has nausea without vomiting and minimal left lower quadrant pain She has not had a good bowel movement Review of Systems Review of Systems: All systems reviewed and are unremarkable except as noted below Gastrointestinal: + abdominal pain (Left lower quadrant), + bloating and + nausea; no vomiting Physical Exam Physical Exam: Lying in bed with some discomfort due to nausea and abdominal pain Constitutional: well developed, well nourished, + acute distress, + ill appearing and + obese Eyes: PERRL, conjunctivae normal, anicteric sclerae ENMT: external ear and nose normal, oropharynx normal Neck: trachea midline, no thyromegaly Respiratory: normal respiratory effort; no respiratory distress Auscultation: lungs clear to auscultation bilaterally Cardiovascular: Rate/Rhythm: regular rate and regular rhythm Heart Sounds: no murmur Extremities: + pedal edema (Trace edema bilaterally) Gastrointestinal (Abdomen): Inspection/Auscultation: abdomen normal to inspection and normal bowel sounds; abdomen not distended Percussion/Palpation: + abdomen tender (Left lower quadrant without any guarding and no rigidity) Neurologic: Alert, awake and oriented x3. No focal sensory and/or motor deficit appreciated Results & Data Results & Data ([facility]) Vital Signs (Past 12 Hours) Vital Signs Temp Pulse Resp BP Pulse Ox 06/04/20 11:15 66 18 98 06/04/20 07:34 36.7 C 66 17 116/69 94 06/04/20 06:56 62 18 98 Laboratory Results Short CBC 06/04/20 Range/Units 06:45 WBC 11.87 H (4.8-10.8) K/uL Hgb 11.7 L (12.0-16.0) g/dL Hct 37.7 (37-47) % Plt Count 433 H (130-400) K/uL BMP 06/04/20 06:45 Sodium 142 Potassium 3.8 Chloride 106 Carbon Dioxide 34 H BUN 10 Creatinine 1.04 Glucose 111 H Calcium 9.3 Medications Administered Current Inpatient Medications Acetaminophen (Acetaminophen 325 Mg Tab) 650 mg PO Q4H PRN PRN Reason: pain/fever Stop: 07/02/20 17:09 Hydrocodone Bitart/Acetaminophen (Hydrocodone/Acetamophen 5/325mg Tab) 1 tab PO QID PRN PRN Reason: Pain Stop: 06/16/20 17:14 Last Admin: 06/04/20 08:12 Dose: 1 tab Documented by: Albuterol (Albuterol Hfa 8 Gm Inhaler) 1 puffs INH QIDR ANDREA Stop: 07/02/20 20:29 Last Admin: 06/04/20 11:13 Dose: 1 puffs Documented by: Aspirin (Aspirin 81 Mg Ectab) 81 mg PO QAM [facility] Stop: 07/03/20 08:59 Last Admin: 06/04/20 08:02 Dose: 81 mg Documented by: Atorvastatin Calcium (Atorvastatin 40 Mg Tab) 40 mg PO [facility] Stop: 07/02/20 20:59 Last Admin: 06/03/20 20:22 Dose: 40 mg Documented by: Bimatoprost (Bimatoprost 0.01% Op Soln 2.5 Ml Btl) 1 drops OP HS [facility] Stop: 07/02/20 20:59 Last Admin: 06/03/20 20:19 Dose: 1 drops Documented by: Brinzolamide (Brinzolamide (Azopt) Ops 10 Ml Btl) 1 drops OP BID [facility] Stop: 07/02/20 20:59 Last Admin: 06/04/20 08:02 Dose: 1 drops Documented by: Calcium Carbonate (Calcium Carbonate 500 Mg Chewable Tab) 1,000 mg PO QID PRN PRN Reason: Indigestion Stop: 07/03/20 14:14 Last Admin: 06/03/20 14:21 Dose: 1,000 mg Documented by: Dextrose (Dextrose 50% 50 Ml Syringe) 25 - 50 ml IV UD PRN; Protocol PRN Reason: Hypoglycemia Protocol Stop: 07/02/20 21:44 Dicyclomine HCl (Dicyclomine Hcl 20 Mg Tab) [address] [facility] Stop: 07/03/20 08:59 Last Admin: 06/04/20 08:03 Dose: 20 mg Documented by: Diltiazem HCl (Diltiazem Hcl 180 Mg Capcr) [address] [facility] Stop: 07/03/20 08:59 Last Admin: 06/04/20 08:03 Dose: 360 mg Documented by: Ferrous Sulfate (Ferrous Sulfate 325 Mg Tab) [address] [facility] Stop: 07/03/20 08:59 Last Admin: 06/04/20 08:03 Dose: 325 mg Documented by: Glucagon (Glucagon For Inj 1 Mg Vial) 1 mg IM UD PRN; Protocol PRN Reason: Hypoglycemia Protocol Stop: 07/02/20 21:44 Glucose (Glucose 40% Gel 15 Gm Tube) 15 - 30 gm PO UD PRN; Protocol PRN Reason: Hypoglycemia Protocol Stop: 07/02/20 21:44 Glucose (Glucose 10 Tabs/Tube) 4 - 8 tabs PO UD PRN; Protocol PRN Reason: Hypoglycemia Protocol Stop: 07/02/20 21:44 Piperacillin Sod/Tazobactam (Sod 4.5 gm/ Dextrose) 120 mls @ 30 mls/hr IV Q8H [facility]; Protocol Stop: 06/12/20 19:59 Last Admin: 06/04/20 12:13 Dose: 30 mls/hr Documented by: Promethazine HCl 12.5 mg/ (Sodium Chloride) 50.5 mls @ 202 mls/hr IV Q6H PRN PRN Reason: Nausea And Vomiting Stop: 07/03/20 14:14 Last Infusion: 06/04/20 00:19 Dose: Infused Documented by: Insulin Aspart (Insulin Aspart 100 Units/Ml 3 Ml Pen) 0 units SC ACHS [facility] Stop: 07/03/20 07:29 Last Admin: 06/04/20 12:14 Dose: 3 units Documented by: Ipratropium [place] (Ipratropium [place] Hfa Inhaler) 1 puffs INH QIDR [facility] Stop: 07/02/20 20:29 Last Admin: 06/04/20 11:13 Dose: 1 puffs Documented by: Miscellaneous (Zafirlukast 20 Mg Order Awaiting Action) 1 ea N/A QS [facility] Stop: 07/03/20 00:00 Last Admin: 06/04/20 07:45 Dose: Not Given Documented by: Miscellaneous (Carbohydrates For Hypoglycemia ) 15 - 30 gm PO UD PRN PRN Reason: Hypoglycemia Treatment Stop: 07/02/20 21:44 Miscellaneous Information (Piperacill/Tazobac Consult Active) 1 ea N/A UD PRN PRN Reason: Consult Stop: 07/02/20 14:51 Ondansetron HCl (Ondansetron Inj 2 Mg/Ml 2 Ml Vial) 4 mg IV Q6H PRN PRN Reason: nausea Stop: 07/02/20 17:09 Last Admin: 06/04/20 04:56 Dose: 4 mg Documented by: Pantoprazole Sodium (Pantoprazole 40 Mg Tab) 40 mg PO BID [facility]; Protocol Stop: 07/02/20 20:59 Last Admin: 06/04/20 08:02 Dose: 40 mg Documented by: Polyethylene Glycol (Polyethylene (Miralax) 17 Gm Pack) 17 gm PO DAILY PRN PRN Reason: Constipation Stop: 07/03/20 10:41 Umeclidinium [place] (Umeclidinium [place] 62.5mcg/Blister 7 Puffs/Inhaler) 1 puffs INH QAM [facility] Stop: 07/03/20 08:59 Last Admin: 06/04/20 08:03 Dose: 1 puffs Documented by:
[2020-06-04] MEDS: POLYETHYLENE (MIRALAX) 17 GM PACK PO SCH (14:18)
[2020-06-04] MEDS: PROMETHAZINE HCL 12.5 MG in SODIUM CHLORIDE 0.9% 50 ML IV PRN (18:12)
[2020-06-04] MEDS: BIMATOPROST 0.01% OP SOLN 2.5 ML BTL OP SCH (20:53)
[2020-06-04] MEDS: ATORVASTATIN 40 MG TAB PO SCH (20:53)
[2020-06-04] MEDS: CALCIUM CARBONATE 500 MG CHEWABLE TAB PO PRN (23:37)
[2020-06-05] MEDS: PROMETHAZINE HCL 12.5 MG in SODIUM CHLORIDE 0.9% 50 ML IV PRN ×2 (00:45→20:31)
[2020-06-05] MEDS: ONDANSETRON INJ 2 MG/ML 2 ML VIAL IV PRN ×2 (04:47→11:11)
[2020-06-05] MEDS: PIPERACILLIN/TAZOBACTAM 4.5 GM in DEXTROSE 5% 100 ML IV SCH ×2 (04:48→12:05)
[2020-06-05] MEDS: IPRATROPIUM BROMIDE HFA INHALER INH SCH ×4 (07:23→19:22)
[2020-06-05] MEDS: ALBUTEROL HFA 8 GM INHALER INH SCH ×4 (07:24→19:23)
[2020-06-05 08:14] LABS: Basophils # (auto) 0.02 K/uL (0-0.2); Basophils % (auto) 0.2 %; Eosinophils # (auto) 0.39 K/uL (0-0.5); Eosinophils % (auto) 4.3 %; Hematocrit (blood only) 35.3 % (37-47); Hemoglobin 10.9 g/dL (12.0-16.0); Immature Granulocytes # (auto) 0.03 K/uL (0.00-0.02); Immature Granulocytes % (auto) 0.3 %; Lymphocytes # (auto) 2.51 K/uL (1.2-3.4); Lymphocytes % (auto) 27.4 %; Mean Corpuscular Hemoglobin 28.1 pg (25-34); Mean Corpuscular Hgb Conc 30.9 g/dL (32-36); Mean Platelet Volume 9.4 fL (7.4-10.4); Monocytes # (auto) 1.16 K/uL (0.11-0.59); Monocytes % (auto) 12.7 %; Neutrophils # (auto) 5.04 K/uL (1.4-6.5); Neutrophils % (auto) 55.1 %; Platelet Count 377 K/uL (130-400); RDW Coefficient of Variation 13.8 % (11.5-14.5); Red Blood Count 3.88 M/uL (4.2-5.4); White Blood Count 9.15 K/uL (4.8-10.8)
[2020-06-05] MEDS: BRINZOLAMIDE (AZOPT) OPS 10 ML BTL OP SCH ×2 (08:27→20:36)
[2020-06-05] MEDS: INSULIN ASPART 100 UNITS/ML 3 ML PEN SC SCH ×4 (08:29→20:35)
[2020-06-05] MEDS: POLYETHYLENE (MIRALAX) 17 GM PACK PO SCH (08:30)
[2020-06-05] MEDS: dilTIAZem HCL 180 MG CAPCR PO SCH (08:30)
[2020-06-05] MEDS: PANTOprazole 40 MG TAB PO SCH ×2 (08:31→20:34)
[2020-06-05] MEDS: UMECLIDINIUM BROMIDE 62.5MCG/BLISTER 7 PUFFS/INHALER INH SCH (08:31)
[2020-06-05] MEDS: FERROUS SULFATE 325 MG TAB PO SCH (08:31)
[2020-06-05] MEDS: ASPIRIN 81 MG ECTAB PO SCH (08:31)
[2020-06-05] MEDS: HYDROCODONE/ACETAMOPHEN 5/325MG TAB PO PRN ×3 (08:38→20:33)
[2020-06-05 08:44] LABS: BUN Creatinine Ratio 11.4 (10-20); Calcium 9.1 mg/dl (8.5-10.1); Creatinine Clr Calc Pharmacy 56.9 ml/min; Est GFR (African American) 65.9; Est GFR (Non-African American) 56.9; Potassium 3.4 mmol/L (3.5-5.1)
[2020-06-05] MEDS ORDERED: POTASSIUM CHLORIDE 20 MEQ TABCR PO STA (09:08)
[2020-06-05] MEDS: CALCIUM CARBONATE 500 MG CHEWABLE TAB PO PRN (15:32)
--- NOTE | 2020-06-05 15:54 | Hospitalist Progress Note ---
Date of Service June 05, 2020 Assessment & Plan (1) Diverticulitis: -Admit to [facility] -Patient presenting from home with reports of persistent nausea and mild left- sided abdominal pain -In the ED, CT ABD/pelvis showing acute sigmoid diverticulitis -Afebrile, no leukocytosis; does not appear septic -S/p IV Zosyn in the ED, will continue with -Continue supportive care with IVF, pain and nausea control -Full liquid diet, advance as tolerated -No evidence of abscess and/or perforation -We will continue current intravenous antibiotic -Clinically stable with minimal left lower quadrant pain and ongoing nausea Constipation We will try MiraLAX Bowel has not moved it we will continue MiraLAX for now Bowel has been moving Ongoing nausea Appears to be after the administration of antibiotic Could be secondary to diabetic gastroparesis History of GERD Continue PPI twice daily and added Maalox 30 mg every 6 hourly as needed Intravenous Phenergan/Zofran as needed Status post endoscopies -Noted recent colonoscopy 05/08/2020: Diverticulosis of sigmoid and descending colon noted; EGD performed on same day was unremarkable. (2) Diabetes mellitus, type 2: -Hgb A1c 7.0 02/2020 -Hold oral agents and utilize NovoLog per protocol while hospitalized (3) Paroxysmal atrial fibrillation: -EKG demonstrates rate controlled atrial fibrillation -On diltiazem for rate control, will continue -Not anticoagulated due to history of GI bleeding. S/p watchman procedure (4) Chronic diastolic CHF (congestive heart failure): -Patient appears euvolemic -Hold furosemide due to acute illness and while receiving IVF -No evidence of fluid overload (5) Asthma: (6) COPD (chronic obstructive pulmonary disease): -Appears stable, no signs of acute exacerbation -Saturating well on chronic 2 L of oxygen -Continue home inhalers (7) DVT prophylaxis: -SCDs due to history of GI bleeding and current diverticulitis Admission and Anticipated Discharge Date Admission Date: June 02, 2020 Subjective 06/03/2020 The patient was seen and examined in medical floor She has been complaining of ongoing nausea without vomiting Her left lower quadrant pain is much better No fever and/or chills 06/04/2020 The patient was seen and examined in medical control She has been feeling a little better but he still has nausea without vomiting and minimal left lower quadrant pain She has not had a good bowel movement 06/05/2020 Patient was seen and examined in medical floor She has been complaining of ongoing nausea especially after use of antibiotic She has no active bowel today Still has some pain in the left lower quadrant Review of Systems Review of Systems: All systems reviewed and are unremarkable except as noted below Gastrointestinal: + abdominal pain (Left lower quadrant), + bloating and + nausea; no vomiting Physical Exam Physical Exam: Lying in bed with some discomfort due to nausea and abdominal pain Constitutional: well developed, well nourished, + acute distress, + ill ap pearing and + obese Eyes: PERRL, conjunctivae normal, anicteric sclerae ENMT: external ear and nose normal, oropharynx normal Neck: trachea midline, no thyromegaly Respiratory: normal respiratory effort; no respiratory distress Auscultation: lungs clear to auscultation bilaterally Cardiovascular: Rate/Rhythm: regular rate and regular rhythm Heart Sounds: no murmur Extremities: + pedal edema (Trace edema bilaterally) Gastrointestinal (Abdomen): Inspection/Auscultation: abdomen normal to inspection and normal bowel sounds; abdomen not distended Percussion/Palpation: + abdomen tender (Left lower quadrant without any guarding and no rigidity) Musculoskeletal: No acute arthritis involving any joints Neurologic: Alert, awake and oriented x3 Results & Data Results & Data ([facility]) Vital Signs (Past 12 Hours) Vital Signs Temp Pulse Resp BP Pulse Ox 06/05/20 14:27 67 18 98 06/05/20 11:17 72 16 94 06/05/20 08:00 64 06/05/20 07:24 59 L 16 98 06/05/20 07:12 36.6 C 71 17 127/73 98 Laboratory Results Short CBC 06/05/20 Range/Units 07:24 WBC 9.15 (4.8-10.8) K/uL Hgb 10.9 L (12.0-16.0) g/dL Hct 35.3 L (37-47) % Plt Count 377 (130-400) K/uL BMP 06/05/20 07:24 Sodium 142 Potassium 3.4 L Chloride 105 Carbon Dioxide 34 H BUN 11 Creatinine 0.94 Glucose 120 H Calcium 9.1 Medications Administered Current Inpatient Medications Acetaminophen (Acetaminophen 325 Mg Tab) 650 mg PO Q4H PRN PRN Reason: pain/fever Stop: 07/02/20 17:09 Hydrocodone Bitart/Acetaminophen (Hydrocodone/Acetamophen 5/325mg Tab) 1 tab PO QID PRN PRN Reason: Pain Stop: 06/16/20 17:14 Last Admin: 06/05/20 08:38 Dose: 1 tab Documented by: Al Hydrox/Mg Hydrox/Simethicone (Aluminum/Magnesium/Simeth (Maalox Max) 30 Ml Udc) 30 ml PO Q6H PRN PRN Reason: Dyspepsia Stop: 07/05/20 15:42 Albuterol (Albuterol Hfa 8 Gm Inhaler) 1 puffs INH QIDR [facility]REA Stop: 07/02/20 20:29 Last Admin: 06/05/20 14:25 Dose: 1 puffs Documented by: Aspirin (Aspirin 81 Mg Ectab) 81 mg PO QAM [facility] Stop: 07/03/20 08:59 Last Admin: 06/05/20 08:31 Dose: 81 mg Documented by: Atorvastatin Calcium (Atorvastatin 40 Mg Tab) 40 mg PO HS [facility] Stop: 07/02/20 20:59 Last Admin: 06/04/20 20:53 Dose: 40 mg Documented by: Bimatoprost (Bimatoprost 0.01% Op Soln 2.5 Ml Btl) 1 drops OP HS [facility] Stop: 07/02/20 20:59 Last Admin: 06/04/20 20:53 Dose: 1 drops Documented by: Brinzolamide (Brinzolamide (Azopt) Ops 10 Ml Btl) 1 drops OP BID [facility] Stop: 07/02/20 20:59 Last Admin: 06/05/20 08:27 Dose: 1 drops Documented by: Ciprofloxacin (Ciprofloxacin 500 Mg Tab) 500 mg PO BID [facility]; Protocol Stop: 06/15/20 20:59 Dextrose (Dextrose 50% 50 Ml Syringe) 25 - 50 ml IV UD PRN; Protocol PRN Reason: Hypoglycemia Protocol Stop: 07/02/20 21:44 Diltiazem HCl (Diltiazem Hcl 180 Mg Capcr) 360 mg PO QAM [facility] Stop: 07/03/20 08:59 Last Admin: 06/05/20 08:30 Dose: 360 mg Documented by: Ferrous Sulfate (Ferrous Sulfate 325 Mg Tab) 325 mg PO QAM [facility] Stop: 07/03/20 08:59 Last Admin: 06/05/20 08:31 Dose: 325 mg Documented by: Glucagon (Glucagon For Inj 1 Mg Vial) 1 mg IM UD PRN; Protocol PRN Reason: Hypoglycemia Protocol Stop: 07/02/20 21:44 Glucose (Glucose 40% Gel 15 Gm Tube) 15 - 30 gm PO UD PRN; Protocol PRN Reason: Hypoglycemia Protocol Stop: 07/02/20 21:44 Glucose (Glucose 10 Tabs/Tube) 4 - 8 tabs PO UD PRN; Protocol PRN Reason: Hypoglycemia Protocol Stop: 07/02/20 21:44 Promethazine HCl 12.5 mg/ (Sodium Chloride) 50.5 mls @ 202 mls/hr IV Q6H PRN PRN Reason: Nausea And Vomiting Stop: 07/03/20 14:14 Last Infusion: 06/05/20 01:08 Dose: Infused Documented by: Insulin Aspart (Insulin Aspart 100 Units/Ml 3 Ml Pen) 0 units SC ACHS [facility] Stop: 07/03/20 07:29 Last Admin: 06/05/20 12:00 Dose: 4 units Documented by: Ipratropium [place] (Ipratropium [place] Hfa Inhaler) 1 puffs INH QIDR [facility]RE[facility] Stop: 07/02/20 20:29 Last Admin: 06/05/20 14:24 Dose: 1 puffs Documented by: Metronidazole (Metronidazole 500 Mg Tab) 500 mg PO BID [facility]; Protocol Stop: 06/15/20 20:59 Miscellaneous (Zafirlukast 20 Mg Order Awaiting Action) 1 ea N/A QS [facility] Stop: 07/03/20 00:00 Last Admin: 06/05/20 14:57 Dose: Not Given Documented by: Miscellaneous (Carbohydrates For Hypoglycemia ) 15 - 30 gm PO UD PRN PRN Reason: Hypoglycemia Treatment Stop: 07/02/20 21:44 Pantoprazole Sodium (Pantoprazole 40 Mg Tab) 40 mg PO BID [facility]; Protocol Stop: 07/02/20 20:59 Last Admin: 06/05/20 08:31 Dose: 40 mg Documented by: Polyethylene Glycol (Polyethylene (Miralax) 17 Gm Pack) 17 gm PO DAILY PRN PRN Reason: Constipation Stop: 07/03/20 10:41 Polyethylene Glycol (Polyethylene (Miralax) 17 Gm Pack) 17 gm PO DAILY [facility] Stop: 07/04/20 13:59 Last Admin: 06/05/20 08:30 Dose: Not Given Documented by: Umeclidinium [place] (Umeclidinium [place] 62.5mcg/Blister 7 Puffs/Inhaler) 1 puffs INH [facility] Stop: 07/03/20 08:59 Last Admin: 06/05/20 08:31 Dose: 1 puffs Documented by:
[2020-06-05] MEDS: metroNIDAZOLE 500 MG TAB PO SCH (20:34)
[2020-06-05] MEDS: ATORVASTATIN 40 MG TAB PO SCH (20:34)
[2020-06-05] MEDS: CIPROFLOXACIN 500 MG TAB PO SCH (20:34)
[2020-06-05] MEDS: BIMATOPROST 0.01% OP SOLN 2.5 ML BTL OP SCH (20:36)
[2020-06-06] MEDS: ALBUTEROL HFA 8 GM INHALER INH SCH ×4 (07:12→19:37)
[2020-06-06] MEDS: IPRATROPIUM BROMIDE HFA INHALER INH SCH ×4 (07:12→19:36)
[2020-06-06] MEDS: PROMETHAZINE HCL 12.5 MG in SODIUM CHLORIDE 0.9% 50 ML IV PRN ×3 (07:57→23:40)
[2020-06-06] MEDS: HYDROCODONE/ACETAMOPHEN 5/325MG TAB PO PRN ×2 (08:00→20:28)
[2020-06-06] MEDS: FERROUS SULFATE 325 MG TAB PO SCH (08:00)
[2020-06-06] MEDS: PANTOprazole 40 MG TAB PO SCH ×2 (08:00→20:24)
[2020-06-06] MEDS: dilTIAZem HCL 180 MG CAPCR PO SCH (08:00)
[2020-06-06] MEDS: BRINZOLAMIDE (AZOPT) OPS 10 ML BTL OP SCH ×2 (08:01→20:24)
[2020-06-06] MEDS: metroNIDAZOLE 500 MG TAB PO SCH (08:01)
[2020-06-06] MEDS: CIPROFLOXACIN 500 MG TAB PO SCH (08:01)
[2020-06-06] MEDS: ASPIRIN 81 MG ECTAB PO SCH (08:01)
[2020-06-06] MEDS: UMECLIDINIUM BROMIDE 62.5MCG/BLISTER 7 PUFFS/INHALER INH SCH (08:01)
[2020-06-06] MEDS: INSULIN ASPART 100 UNITS/ML 3 ML PEN SC SCH ×4 (08:02→20:32)
[2020-06-06] MEDS: POLYETHYLENE (MIRALAX) 17 GM PACK PO SCH (08:15)
[2020-06-06 08:26] LABS: BUN Creatinine Ratio 10.8 (10-20); Calcium 8.8 mg/dl (8.5-10.1); Creatinine Clr Calc Pharmacy 58.8 ml/min; Est GFR (African American) 68.6; Est GFR (Non-African American) 59.2; Potassium 3.8 mmol/L (3.5-5.1)
--- NOTE | 2020-06-06 11:22 | Gastrointestinal Consultation ---
Date of Consultation June 06, 2020 Assessment & Plan (1) Diverticulitis: (2) Nausea: Pt is a 79 y/o female admitted for recurrent diverticulitis. GI consulted for nausea. Hx of DM II, gastroparesis. She's on Cipro/Flagyl antibx, wonder if perhaps nausea is worse w Flagyl use. CT w/o signs of obstruction other that uncomplicated diverticulitis. - Recommend changing antibx from Cipro/Flagyl to Augmentin x 10-14 days for diverticulitis treatment - Trial Erythromycin IV to help promote GI motility - Antiemetics prn nausea - Advance diet as tolerated - Upon DC will help schedule f/u visit with Dr. Zulay Eagle to discuss possible repeat EUS for stromal tumor monitoring Supervising Physician Co-Signing Physician Notes I have seen and examined the patient and discussed the management with NIECY San. Consult is for nausea. 79 yo fm with a history of recent watchman procedure, diabetes with gastroparesis for which GI is consulted for nausea. CT A/P showing sigmoid diverticulitis on cipro/flagyl. PE - well nourished female in nad, HEENT - perrla, CV - rrr no mrg, Pulm - Ctab, Abd - soft nt nd +bs, no diffuse ttp Labs reviewed Imaging reviewed Nausea - suspect this is from gastroparesis, IV ppi and given heart history- trial of erythromcyin, recent egd completed, potential outpatient EUS fup with Dr. Eagle for history of gist Diverticulitis- agree with change in abx as recommended below. History of Present Illness Reason for Consultation: Nausea, suspect gastroparesis Requesting Physician: Dr. Katerin Unger Attending Physician: Dr. Marycarmen Adame History of Present Illness Pt is a 79 y/o female currently admitted for recurrent diverticulitis, on Cipro Flagyl antibx. GI asked to see pt for nausea w/o vomiting for few weeks now which started before her hospitalization. Pt w hx of DM II, A1C 7%. She did have previous gastric emptying study which showed signs of delayed gastric emptying. She denies any fever, chills, CP, SOB, + mild abd pain now on LLQ area. Had trouble initiation BMs and given Miralax now. 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 Her last EGD/Colonoscopy was just about 1 month ago - unremarkable EGD, benign colon polyp. 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 Allergies Allergy/AdvReac Type Severity Reaction Status Date / Time salmon oil Allergy Severe HIVES-REDDENED Verified 06/02/20 12:33 ALL OVER Iodinated Contrast Media Allergy Intermediate HIVES-GI Verified 06/02/20 12:33 SYMPTOMS lisinopril Allergy Intermediate FAST HEART Verified 06/02/20 12:33 BEAT valsartan Allergy Intermediate FAST HEART Verified 06/02/20 12:33 BEAT bupropion AdvReac Mild GI SYMPTOMS Verified 06/02/20 12:33 enalapril AdvReac Mild GI SYMPTOMS Verified 06/02/20 12:33 escitalopram AdvReac Mild GI SYMPTOMS Verified 06/02/20 12:33 metoprolol AdvReac Mild LOWERS Verified 06/02/20 12:33 PULSE RATE verapamil AdvReac Mild GI UPSET, Verified 06/02/20 12:33 fast heart rate Home Medications Home Medications Medication Instructions Recorded Confirmed Type atorvastatin 40 mg PO HS 06/23/19 06/02/20 History cholecalciferol (vitamin D3) 1,000 unit PO QAM 06/23/19 06/02/20 History [Vitamin D3] dicyclomine 20 mg PO QAM 06/23/19 06/02/20 History diltiazem HCl 360 mg PO QAM 06/23/19 06/02/20 History docusate sodium 100 mg PO QAM 06/23/19 06/02/20 History hydrocodone-acetaminophen 1 tab PO QID PRN 06/23/19 06/02/20 History omeprazole 20 mg PO BID 06/23/19 06/02/20 History zafirlukast 20 mg PO QAM 06/23/19 06/02/20 History Azopt 1 drp OPHTHALMIC (EYE) BID 09/25/19 06/02/20 History Combivent Respimat 1 puff INHALATION QID 09/25/19 06/02/20 History Lumigan 1 drp OPB HS 09/25/19 06/02/20 History albuterol sulfate 2.5 mg INHALATION BID PRN 09/25/19 06/02/20 History albuterol sulfate [Ventolin HFA] 2 puff INHALATION QID PRN 09/25/19 06/02/20 History polyethylene glycol 3350 [Miralax] 17 g PO BID PRN 09/25/19 06/02/20 History Oxygen Home #1 ea 01/14/20 04/10/20 History aspirin 81 mg tablet,delayed 81 mg PO QAM 01/14/20 06/02/20 History release potassium chloride 20 mEq 20 meq PO DAILY 01/14/20 06/02/20 History tablet,extended release(part/cryst) ferrous sulfate 325 mg (65 mg 325 mg PO QAM tab 02/23/20 06/02/20 History iron) tablet furosemide 40 mg tablet 40 mg PO HS tab 02/23/20 06/02/20 History glimepiride 4 mg tablet 4 mg PO QAM tab 02/23/20 06/02/20 History ondansetron HCl 8 mg tablet 8 mg PO Q8H PRN 02/23/20 06/02/20 History umeclidinium 62.5 mcg/actuation 1 puffs INH QAM 04/10/20 06/02/20 History blister powder for inhalation multivitamin [Multiple Vitamin] 1 tab PO DAILY 06/02/20 06/02/20 History Patient History Medical History Asthma Chronic diastolic CHF (congestive heart failure) COPD (chronic obstructive pulmonary disease) Diabetes mellitus, type 2 Diverticulosis Esophageal reflux Glaucoma of both eyes Hyperlipidemia Hypertension Lower GI bleed Nausea and vomiting after administration of anesthetic agent Nocturnal hypoxemia On home oxygen therapy 2L N/C at all times and 4 L N/C at night Osteoarthritis Paroxysmal atrial fibrillation Sleep apnea Surgical History H/O colonoscopy "04/2014 - diverticular disease throughout colon, internal hemorrhoids, polyp removed" History of appendectomy History of cardiac cath History of cholecystectomy History of dilatation and curettage History of esophagogastroduodenoscopy (EGD) "04/2014 - normal" History of incisional hernia repair History of tooth extraction all teeth Hx of small bowel obstruction "11/2017 - Seen [facility] - surgical intervention" Presence of Watchman left atrial appendage closure device 11/2019 @ [facility] Dr. 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: No Beliefs That Will Affect Care: None marital status: / Current Living Situation: Alone Feels Safe at Home: Yes Safety Concerns: Feels Safe At This Time Review of Systems Review of Systems: All systems reviewed & are unremarkable except as noted in HPI & below Physical Exam Constitutional: WD/WN, vitals as above well groomed, cooperative and comfortable Eyes: PERRL, conjunctivae normal, anicteric sclerae ENMT: external ear and nose normal, oropharynx normal Respiratory: normal respiratory effort, lungs clear to auscultation Cardiovascular: RRR, no murmur, no edema Gastrointestinal (Abdomen): Inspection/Auscultation: + hypoactive bowel sounds Percussion/Palpation: + abdomen tender (LLQ) and abdomen soft Skin: no rashes, warm and dry no jaundice Psychiatric: A+Ox3, euthymic affect Lymphatic: no lymphedema Results & Data ([facility]) Vital Signs (Past 12 Hours) Vital Signs Temp Pulse Resp BP Pulse Ox 06/06/20 11:11 76 16 96 06/06/20 07:06 68 14 98 06/06/20 06:59 36.9 C 74 18 127/72 98
--- NOTE | 2020-06-06 15:51 | Hospitalist Progress Note ---
Date of Service June 06, 2020 Assessment & Plan (1) Diverticulitis: -Admit to [facility] -Patient presenting from home with reports of persistent nausea and mild left- sided abdominal pain -In the ED, CT ABD/pelvis showing acute sigmoid diverticulitis -Afebrile, no leukocytosis; does not appear septic -S/p IV Zosyn in the ED, will continue with -Continue supportive care with IVF, pain and nausea control -Full liquid diet, advance as tolerated -No evidence of abscess and/or perforation -Initially received intravenous Zosyn, were changed to oral Cipro and Flagyl for about 24 hours and now on oral Augmentin as per GI -Clinically better Constipation We will try MiraLAX Bowel has not moved it we will continue MiraLAX for now Bowel has been moving Ongoing nausea Has been going on for a while before admission Appears to be after the administration of antibiotic Could be secondary to diabetic gastroparesis History of GERD Continue PPI twice daily and added Maalox 30 mg every 6 hourly as needed Intravenous Phenergan/Zofran as needed GI consulted-has been on small dose of metoclopramide Will need to have a repeat EGD as an outpatient Status post endoscopies -Noted recent colonoscopy 05/08/2020: Diverticulosis of sigmoid and descending colon noted; EGD performed on same day was unremarkable. (2) Diabetes mellitus, type 2: -Hgb A1c 7.0 02/2020 -Hold oral agents and utilize NovoLog per protocol while hospitalized (3) Paroxysmal atrial fibrillation: -EKG demonstrates rate controlled atrial fibrillation -On diltiazem for rate control, will continue -Not anticoagulated due to history of GI bleeding. S/p watchman procedure (4) Chronic diastolic CHF (congestive heart failure): -Patient appears euvolemic -Hold furosemide due to acute illness and while receiving IVF -No evidence of fluid overload (5) Asthma: (6) COPD (chronic obstructive pulmonary disease): -Appears stable, no signs of acute exacerbation -Saturating well on chronic 2 L of oxygen -Continue home inhalers (7) DVT prophylaxis: -SCDs due to history of GI bleeding and current diverticulitis Admission and Anticipated Discharge Date Admission Date: June 02, 2020 Subjective 06/03/2020 The patient was seen and examined in medical floor She has been complaining of ongoing nausea without vomiting Her left lower quadrant pain is much better No fever and/or chills 06/04/2020 The patient was seen and examined in medical control She has been feeling a little better but he still has nausea without vomiting and minimal left lower quadrant pain She has not had a good bowel movement 06/05/2020 Patient was seen and examined in medical floor She has been complaining of ongoing nausea especially after use of antibiotic She has no active bowel today Still has some pain in the left lower quadrant 06/06/2020 Patient was seen and examined in medical floor She complains to have ongoing nausea which has been very distressing for her and that has been going on for some time Denies any abdominal distention and any increasing pain Bowel has been moving Review of Systems Review of Systems: All systems reviewed and are unremarkable except as noted below Gastrointestinal: + abdominal pain (Left lower quadrant), + bloating and + nausea (Ongoing nausea for a while before admission); no vomiting Physical Exam Physical Exam: Lying in bed with some discomfort due to nausea and abdominal pain Constitutional: well developed, well nourished, + acute distress, + ill appearing and + obese Eyes: PERRL, conjunctivae normal, anicteric sclerae ENMT: external ear and nose normal, oropharynx normal Neck: trachea midline, no thyromegaly Respiratory: normal respiratory effort; no respiratory distress Auscultation: lungs clear to auscultation bilaterally Cardiovascular: Rate/Rhythm: regular rate and regular rhythm Heart Sounds: no murmur Extremities: + pedal edema (Trace edema bilaterally) Gastrointestinal (Abdomen): Inspection/Auscultation: abdomen normal to inspection and normal bowel sounds; abdomen not distended Percussion/Palpation: + abdomen tender (Epigastric and left lower quadrant tenderness. No guarding and no rigidity) Musculoskeletal: No acute arthritis involving any joints Results & Data Results & Data ([facility]) Vital Signs (Past 12 Hours) Vital Signs Temp Pulse Resp BP Pulse Ox 06/06/20 15:36 79 16 95 06/06/20 15:00 36.8 C 80 19 122/78 96 06/06/20 11:11 76 16 96 06/06/20 07:06 68 14 98 06/06/20 06:59 36.9 C 74 18 127/72 98 Laboratory Results BMP 06/06/20 07:41 Sodium 143 Potassium 3.8 Chloride 106 Carbon Dioxide 34 H BUN 10 Creatinine 0.91 Glucose 131 H Calcium 8.8 Medications Administered Current Inpatient Medications Acetaminophen (Acetaminophen 325 Mg Tab) 650 mg PO Q4H PRN PRN Reason: pain/fever Stop: 07/02/20 17:09 Hydrocodone Bitart/Acetaminophen (Hydrocodone/Acetamophen 5/325mg Tab) 1 tab PO QID PRN PRN Reason: Pain Stop: 06/16/20 17:14 Last Admin: 06/06/20 08:00 Dose: 1 tab Documented by: Al Hydrox/Mg Hydrox/Simethicone (Aluminum/Magnesium/Simeth (Maalox Max) 30 Ml Udc) 30 ml PO Q6H PRN PRN Reason: Dyspepsia Stop: 07/05/20 15:42 Albuterol (Albuterol Hfa 8 Gm Inhaler) 1 puffs INH QIDR [facility]RE[facility] Stop: 07/02/20 20:29 Last Admin: 06/06/20 15:34 Dose: 1 puffs Documented by: Amoxicillin/Clavulanate Potassium (Amoxicillin/Clavulanate 875 Mg Tab) 1 tab PO BIDM [facility] Stop: 06/16/20 16:59 Aspirin (Aspirin 81 Mg Ectab) 81 mg PO QAM [facility] Stop: 07/03/20 08:59 Last Admin: 06/06/20 08:01 Dose: 81 mg Documented by: Atorvastatin Calcium (Atorvastatin 40 Mg Tab) 40 mg PO HS [facility] Stop: 07/02/20 20:59 Last Admin: 06/05/20 20:34 Dose: 40 mg Documented by: Bimatoprost (Bimatoprost 0.01% Op Soln 2.5 Ml Btl) 1 drops OP HS [facility] Stop: 07/02/20 20:59 Last Admin: 06/05/20 20:36 Dose: 1 drops Documented by: Brinzolamide (Brinzolamide (Azopt) Ops 10 Ml Btl) 1 drops OP BID [facility] Stop: 07/02/20 20:59 Last Admin: 06/06/20 08:01 Dose: 1 drops Documented by: Dextrose (Dextrose 50% 50 Ml Syringe) 25 - 50 ml IV UD PRN; Protocol PRN Reason: Hypoglycemia Protocol Stop: 07/02/20 21:44 Diltiazem HCl (Diltiazem Hcl 180 Mg Capcr) 360 mg PO QAM [facility] Stop: 07/03/20 08:59 Last Admin: 06/06/20 08:00 Dose: 360 mg Documented by: Ferrous Sulfate (Ferrous Sulfate 325 Mg Tab) 325 mg PO QAM [facility] Stop: 07/03/20 08:59 Last Admin: 06/06/20 08:00 Dose: 325 mg Documented by: Glucagon (Glucagon For Inj 1 Mg Vial) 1 mg IM UD PRN; Protocol PRN Reason: Hypoglycemia Protocol Stop: 07/02/20 21:44 Glucose (Glucose 40% Gel 15 Gm Tube) 15 - 30 gm PO UD PRN; Protocol PRN Reason: Hypoglycemia Protocol Stop: 07/02/20 21:44 Glucose (Glucose 10 Tabs/Tube) 4 - 8 tabs PO UD PRN; Protocol PRN Reason: Hypoglycemia Protocol Stop: 07/02/20 21:44 Promethazine HCl 12.5 mg/ (Sodium Chloride) 50.5 mls @ 202 mls/hr IV Q6H PRN PRN Reason: Nausea And Vomiting Stop: 07/03/20 14:14 Last Admin: 06/06/20 15:38 Dose: 202 mls/hr Documented by: Insulin Aspart (Insulin Aspart 100 Units/Ml 3 Ml Pen) 0 units SC ACHS [facility] Stop: 07/03/20 07:29 Last Admin: 06/06/20 12:13 Dose: 4 units Documented by: Ipratropium [place] (Ipratropium [place] Hfa Inhaler) 1 puffs INH QIDR [facility] Stop: 07/02/20 20:29 Last Admin: 06/06/20 15:35 Dose: 1 puffs Documented by: Metoclopramide HCl (Metoclopramide Hcl Inj 5 Mg/Ml 2 Ml Vial) 5 mg IV BID [facility] Stop: 07/06/20 20:59 Miscellaneous (Zafirlukast 20 Mg Order Awaiting Action) 1 ea N/A QS [facility] Stop: 07/03/20 00:00 Last Admin: 06/06/20 15:00 Dose: Not Given Documented by: Miscellaneous (Carbohydrates For Hypoglycemia ) 15 - 30 gm PO UD PRN PRN Reason: Hypoglycemia Treatment Stop: 07/02/20 21:44 Pantoprazole Sodium (Pantoprazole 40 Mg Tab) 40 mg PO BID [facility]; Protocol Stop: 07/02/20 20:59 Last Admin: 06/06/20 08:00 Dose: 40 mg Documented by: Polyethylene Glycol (Polyethylene (Miralax) 17 Gm Pack) 17 gm PO DAILY PRN PRN Reason: Constipation Stop: 07/03/20 10:41 Polyethylene Glycol (Polyethylene (Miralax) 17 Gm Pack) 17 gm PO DAILY [facility] Stop: 07/04/20 13:59 Last Admin: 06/06/20 08:15 Dose: 17 gm Documented by: Umeclidinium [place] (Umeclidinium [place] 62.5mcg/Blister 7 Puffs/Inhaler) 1 puffs INH QAM [facility] Stop: 07/03/20 08:59 Last Admin: 06/06/20 08:01 Dose: 1 puffs Documented by:
[2020-06-06] MEDS: AMOXICILLIN/CLAVULANATE 875 MG TAB PO SCH (17:35)
[2020-06-06] MEDS: METOCLOPRAMIDE HCL INJ 5 MG/ML 2 ML VIAL IV SCH (20:23)
[2020-06-06] MEDS: ATORVASTATIN 40 MG TAB PO SCH (20:24)
[2020-06-06] MEDS: BIMATOPROST 0.01% OP SOLN 2.5 ML BTL OP SCH (20:24)
[2020-06-07 06:33] LABS: Basophils # (auto) 0.01 K/uL (0-0.2); Basophils % (auto) 0.1 %; Eosinophils # (auto) 0.76 K/uL (0-0.5); Eosinophils % (auto) 7.6 %; Hematocrit (blood only) 34.1 % (37-47); Hemoglobin 10.5 g/dL (12.0-16.0); Immature Granulocytes # (auto) 0.03 K/uL (0.00-0.02); Immature Granulocytes % (auto) 0.3 %; Lymphocytes # (auto) 2.77 K/uL (1.2-3.4); Lymphocytes % (auto) 27.8 %; Mean Corpuscular Hgb Conc 30.8 g/dL (32-36); Mean Corpuscular Volume 90.9 fL (80-100); Mean Platelet Volume 9.4 fL (7.4-10.4); Monocytes # (auto) 1.23 K/uL (0.11-0.59); Monocytes % (auto) 12.4 %; Neutrophils # (auto) 5.15 K/uL (1.4-6.5); Neutrophils % (auto) 51.8 %; Platelet Count 360 K/uL (130-400); RDW Coefficient of Variation 13.9 % (11.5-14.5); RDW Standard Deviation 46.4 fL (36.4-46.3); Red Blood Count 3.75 M/uL (4.2-5.4); White Blood Count 9.95 K/uL (4.8-10.8)
[2020-06-07 07:03] LABS: BUN Creatinine Ratio 12.9 (10-20); Calcium 9.3 mg/dl (8.5-10.1); Creatinine Clr Calc Pharmacy 50.3 ml/min; Est GFR (Non-African American) 49.2; Potassium 3.8 mmol/L (3.5-5.1)
[2020-06-07] MEDS: ALBUTEROL HFA 8 GM INHALER INH SCH ×4 (07:07→19:18)
[2020-06-07] MEDS: IPRATROPIUM BROMIDE HFA INHALER INH SCH ×4 (07:07→19:18)
[2020-06-07] MEDS: PROMETHAZINE HCL 12.5 MG in SODIUM CHLORIDE 0.9% 50 ML IV PRN ×2 (07:22→15:32)
[2020-06-07] MEDS: AMOXICILLIN/CLAVULANATE 875 MG TAB PO SCH ×2 (08:10→17:30)
[2020-06-07] MEDS: ASPIRIN 81 MG ECTAB PO SCH (08:10)
[2020-06-07] MEDS: dilTIAZem HCL 180 MG CAPCR PO SCH (08:11)
[2020-06-07] MEDS: PANTOprazole 40 MG TAB PO SCH ×2 (08:11→21:19)
[2020-06-07] MEDS: FERROUS SULFATE 325 MG TAB PO SCH (08:11)
[2020-06-07] MEDS: BRINZOLAMIDE (AZOPT) OPS 10 ML BTL OP SCH ×2 (08:12→21:18)
[2020-06-07] MEDS: UMECLIDINIUM BROMIDE 62.5MCG/BLISTER 7 PUFFS/INHALER INH SCH (08:12)
[2020-06-07] MEDS: METOCLOPRAMIDE HCL INJ 5 MG/ML 2 ML VIAL IV SCH ×2 (08:13→21:17)
[2020-06-07] MEDS: POLYETHYLENE (MIRALAX) 17 GM PACK PO SCH (08:14)
[2020-06-07] MEDS: HYDROCODONE/ACETAMOPHEN 5/325MG TAB PO PRN ×2 (08:17→21:25)
[2020-06-07] MEDS: INSULIN ASPART 100 UNITS/ML 3 ML PEN SC SCH ×4 (08:20→21:18)
--- NOTE | 2020-06-07 09:48 | Gastroenterology Progress Note ---
Date of Service June 07, 2020 Assessment & Plan (1) Diverticulitis: (2) Nausea: Pt is a 79 y/o female admitted for recurrent diverticulitis. GI consulted for nausea. Hx of DM II, gastroparesis. She's on Cipro/Flagyl antibx, wonder if perhaps nausea is worse w Flagyl use + Gastroparesis. CT w/o signs of obstruction other that uncomplicated diverticulitis. She tolerated solid meal but w nausea, no vomiting afterwards. Antibx for diverticulitis changed to Augmentin. Nausea controlled best on Phenergan or Zofran per her report. - Augmentin x 10-14 days for diverticulitis treatment - Tried Reglan 5mg IV BID to promote GI motility, but she doesn't seem to feel much difference. Can DC by end of day if not effective and continue Phenergan or Zofran instead prn nausea. - Upon DC will help schedule f/u visit with Dr. Zulay Eagle to discuss possible repeat EUS for stromal tumor monitoring Admission and Anticipated Discharge Date Admission Date: June 02, 2020 Supervising Physician Co-Signing Physician Notes I have seen and examined the patient and discussed the management with NIECY San. Nausea somewhat the same- improvement on phenergan per subjective report and trial of Bentyl. Prior watchman procedure. PE - well nourished fm eating lunch in nad, HEENT - perrla, CV - rrr no mrg Pulm- ctab Abd - soft nt nd +bs Labs reviewed Continue with Phenergan and Bentyl. Outpatient follow-up for potential EUS with Dr. Eagle. Subjective Pt managed to eat solid food for breakfast today but felt nauseated, no vomiting. Abd pain is improved. She felt Reglan IV didn't really make nausea a lot better. Osprey better on Phenergan or Zofran Review of Systems Review of Systems: All systems reviewed & are unremarkable except as noted in HPI & below Physical Exam Constitutional: WD/WN, vitals as above well groomed, cooperative and comfortable Eyes: PERRL, conjunctivae normal, anicteric sclerae ENMT: external ear and nose normal, oropharynx normal Respiratory: normal respiratory effort, lungs clear to auscultation Cardiovascular: RRR, no murmur, no edema Gastrointestinal (Abdomen): Inspection/Auscultation: normal bowel sounds Percussion/Palpation: + abdomen tender (mild TTP mid abd, LLQ) and abdomen soft Skin: no rashes, warm and dry no jaundice Psychiatric: A+Ox3, euthymic affect Lymphatic: no lymphedema Results & Data ([facility]) Vital Signs (Past 12 Hours) Vital Signs Temp Pulse Resp BP BP Pulse Ox 06/07/20 07:15 36.6 C 66 18 115/62 98 06/07/20 07:07 67 16 98 06/06/20 23:00 36.6 C 59 L 18 117/67 97 06/06/20 22:45 36.9 C 80 20 128/70 98
--- NOTE | 2020-06-07 17:47 | Hospitalist Progress Note ---
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 Acute diverticulitis as below. Miralax improved her constipation and with the antiemetics she was feeling better. Reglan trial started per GI. She will need a repeat EGD as outpatient. (2) Diverticulitis: Pt reports nausea which is chronic likely 2/2 diabetic gastroparesis, became much worse 2 weeks ago. 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 She is also having a workup with Endocrinology regarding hyperthyroidism. CT a/p in the ER revealed acute sigmoid diverticulitis. She was originally started on Zosyn, which was switched to Cipro/Flagyl and then to Augmentin which is what she is still taking. (3) Constipation: Miralax PRN-resolved. (4) Diabetes mellitus, type 2: -Hgb A1c 7.0 02/2020 -Hold oral agents and utilize NovoLog per protocol while hospitalized. At goal (5) Paroxysmal atrial fibrillation: -EKG demonstrates rate controlled atrial fibrillation -On diltiazem for rate control, will continue -Not anticoagulated due to history of GI bleeding. S/p watchman procedure (6) Chronic diastolic CHF (congestive heart failure): -Patient appears euvolemic -Hold furosemide due to acute illness and while receiving IVF -No evidence of fluid overload (7) COPD (chronic obstructive pulmonary disease): -Appears stable, no signs of acute exacerbation -Saturating well on chronic 2 L of oxygen -Continue home inhalers (8) DVT prophylaxis: -SCDs due to history of GI bleeding and current diverticulitis Full Code Dispo-to home when nausea is more controlled. Ruby Begum DO [facility] Hospitalist Admission and Anticipated Discharge Date Admission Date: June 02, 2020 Subjective +nausea persistent LLQ pain counseled to eat in small portions and take more time in between meals. BM resulted from Miralax Denies Shortness of breath Review of Systems Review of Systems: All systems reviewed & are unremarkable except as noted in Subjective Physical Exam Physical Exam: CONSTITUTIONAL: obese, vitals as above, generally well- appearing EYES: normal conjunctivae, no scleral icterus ENT: external ear and nose normal, oropharynx clear, MMM NECK: trachea midline RESPIRATORY: clear to auscultation bilaterally, no crackles, rales or wheezes, normal respiratory effort CARDIOVASCULAR: regular rate and rhythm, S1 and 2 heard without murmurs, gallops or rubs, no JVD, no peripheral edema CHEST: inspection of chest was normal GASTROINTESTINAL: normal bowel sounds, soft, TTP in LLQ region, nondistended MUSCULOSKELETAL: strength 5/5 throughout, head is normocephalic and atraumatic, neck supple, normal palpation of chest wall without tenderness SKIN: warm and dry NEUROLOGIC: No facial palsy, no dysarthria. CN 2-12 grossly intact, no sensory deficit, normal cognition, normal speech, no gross focal deficits. PSYCHIATRIC: alert cooperative and oriented to person, place and time. E Results & Data Results & Data ([facility]) Vital Signs (Past 12 Hours) Vital Signs Temp Pulse Resp BP Pulse Ox 06/07/20 15:28 37.1 C 69 18 118/75 96 06/07/20 15:05 68 16 94 06/07/20 11:16 69 16 96 06/07/20 07:15 36.6 C 66 18 115/62 98 06/07/20 07:07 67 16 98 Laboratory Results Short CBC 06/07/20 Range/Units 05:43 WBC 9.95 (4.8-10.8) K/uL Hgb 10.5 L (12.0-16.0) g/dL Hct 34.1 L (37-47) % Plt Count 360 (130-400) K/uL BMP 06/07/20 05:43 Sodium 141 Potassium 3.8 Chloride 106 Carbon Dioxide 33 H BUN 14 Creatinine 1.06 Glucose 129 H Calcium 9.3 Medications Administered Current Inpatient Medications Acetaminophen (Acetaminophen 325 Mg Tab) 650 mg PO Q4H PRN PRN Reason: pain/fever Stop: 07/02/20 17:09 Hydrocodone Bitart/Acetaminophen (Hydrocodone/Acetamophen 5/325mg Tab) 1 tab PO QID PRN PRN Reason: Pain Stop: 06/16/20 17:14 Last Admin: 06/07/20 08:17 Dose: 1 tab Documented by: Al Hydrox/Mg Hydrox/Simethicone (Aluminum/Magnesium/Simeth (Maalox Max) 30 Ml Udc) 30 ml PO Q6H PRN PRN Reason: Dyspepsia Stop: 07/05/20 15:42 Albuterol (Albuterol Hfa 8 Gm Inhaler) 1 puffs INH QIDR [facility] Stop: 07/02/20 20:29 Last Admin: 06/07/20 15:03 Dose: 1 puffs Documented by: Amoxicillin/Clavulanate Potassium (Amoxicillin/Clavulanate 875 Mg Tab) 1 tab PO BIDM [facility] Stop: 06/16/20 16:59 Last Admin: 06/07/20 17:30 Dose: 1 tab Documented by: Aspirin (Aspirin 81 Mg Ectab) 81 mg PO QAM [facility] Stop: 07/03/20 08:59 Last Admin: 06/07/20 08:10 Dose: 81 mg Documented by: Atorvastatin Calcium (Atorvastatin 40 Mg Tab) 40 mg PO HS [facility] Stop: 07/02/20 20:59 Last Admin: 06/06/20 20:24 Dose: 40 mg Documented by: Bimatoprost (Bimatoprost 0.01% Op Soln 2.5 Ml Btl) 1 drops OP HS [facility] Stop: 07/02/20 20:59 Last Admin: 06/06/20 20:24 Dose: 1 drops Documented by: Brinzolamide (Brinzolamide (Azopt) Ops 10 Ml Btl) 1 drops OP BID [facility] Stop: 07/02/20 20:59 Last Admin: 06/07/20 08:12 Dose: 1 drops Documented by: Dextrose (Dextrose 50% 50 Ml Syringe) 25 - 50 ml IV UD PRN; Protocol PRN Reason: Hypoglycemia Protocol Stop: 07/02/20 21:44 Dicyclomine HCl (Dicyclomine Hcl 10 Mg Cap) 10 mg PO BID [facility] Stop: 07/07/20 20:59 Diltiazem HCl (Diltiazem Hcl 180 Mg Capcr) [facility] Stop: 07/03/20 08:59 Last Admin: 06/07/20 08:11 Dose: 360 mg Documented by: Ferrous Sulfate (Ferrous Sulfate 325 Mg Tab) 325 mg PO QAM [facility] Stop: 07/03/20 08:59 Last Admin: 06/07/20 08:11 Dose: 325 mg Documented by: Glucagon (Glucagon For Inj 1 Mg Vial) 1 mg IM UD PRN; Protocol PRN Reason: Hypoglycemia Protocol Stop: 07/02/20 21:44 Glucose (Glucose 40% Gel 15 Gm Tube) 15 - 30 gm PO UD PRN; Protocol PRN Reason: Hypoglycemia Protocol Stop: 07/02/20 21:44 Glucose (Glucose 10 Tabs/Tube) 4 - 8 tabs PO UD PRN; Protocol PRN Reason: Hypoglycemia Protocol Stop: 07/02/20 21:44 Insulin Aspart (Insulin Aspart 100 Units/Ml 3 Ml Pen) 0 units SC ACHS [facility] Stop: 07/03/20 07:29 Last Admin: 06/07/20 17:30 Dose: 5 units Documented by: Ipratropium [place] (Ipratropium [place] Hfa Inhaler) 1 puffs INH QIDR [facility] Stop: 07/02/20 20:29 Last Admin: 06/07/20 15:02 Dose: 1 puffs Documented by: Metoclopramide HCl (Metoclopramide Hcl Inj 5 Mg/Ml 2 Ml Vial) 5 mg IV BID [facility] Stop: 07/06/20 20:59 Last Admin: 06/07/20 08:13 Dose: 5 mg Documented by: Miscellaneous (Zafirlukast 20 Mg Order Awaiting Action) 1 ea N/A QS [facility] Stop: 07/03/20 00:00 Last Admin: 06/07/20 16:18 Dose: Not Given Documented by: Miscellaneous (Carbohydrates For Hypoglycemia ) 15 - 30 gm PO UD PRN PRN Reason: Hypoglycemia Treatment Stop: 07/02/20 21:44 Pantoprazole Sodium (Pantoprazole 40 Mg Tab) 40 mg PO BID [facility]; Protocol Stop: 07/02/20 20:59 Last Admin: 06/07/20 08:11 Dose: 40 mg Documented by: Polyethylene Glycol (Polyethylene (Miralax) 17 Gm Pack) 17 gm PO DAILY PRN PRN Reason: Constipation Stop: 07/03/20 10:41 Polyethylene Glycol (Polyethylene (Miralax) 17 Gm Pack) 17 gm PO DAILY [facility] Stop: 07/04/20 13:59 Last Admin: 06/07/20 08:14 Dose: 17 gm Documented by: Promethazine HCl (Promethazine Hcl 25 Mg/20 Ml Udp) 25 mg PO Q6H PRN PRN Reason: Nausea And Vomiting Stop: 07/07/20 17:44 Umeclidinium [place] (Umeclidinium [place] 62.5mcg/Blister 7 Puffs/Inhaler) 1 puffs INH QAM [facility] Stop: 07/03/20 08:59 Last Admin: 06/07/20 08:12 Dose: 1 puffs Documented by:
[2020-06-07] MEDS: BIMATOPROST 0.01% OP SOLN 2.5 ML BTL OP SCH (21:17)
[2020-06-07] MEDS: ATORVASTATIN 40 MG TAB PO SCH (21:17)
[2020-06-07] MEDS: DICYCLOMINE HCL 10 MG CAP PO SCH (21:18)
[2020-06-08] MEDS: IPRATROPIUM BROMIDE HFA INHALER INH SCH ×4 (07:08→19:21)
[2020-06-08] MEDS: ALBUTEROL HFA 8 GM INHALER INH SCH ×4 (07:08→19:21)
[2020-06-08] MEDS: POLYETHYLENE (MIRALAX) 17 GM PACK PO SCH (08:21)
[2020-06-08] MEDS: BRINZOLAMIDE (AZOPT) OPS 10 ML BTL OP SCH ×2 (08:22→21:36)
[2020-06-08] MEDS: UMECLIDINIUM BROMIDE 62.5MCG/BLISTER 7 PUFFS/INHALER INH SCH (08:22)
[2020-06-08] MEDS: PANTOprazole 40 MG TAB PO SCH ×2 (08:23→21:36)
[2020-06-08] MEDS: FERROUS SULFATE 325 MG TAB PO SCH (08:23)
[2020-06-08] MEDS: dilTIAZem HCL 180 MG CAPCR PO SCH (08:23)
[2020-06-08] MEDS: AMOXICILLIN/CLAVULANATE 875 MG TAB PO SCH ×2 (08:23→17:33)
[2020-06-08] MEDS: DICYCLOMINE HCL 10 MG CAP PO SCH ×2 (08:24→21:36)
[2020-06-08] MEDS: ASPIRIN 81 MG ECTAB PO SCH (08:24)
[2020-06-08] MEDS: METOCLOPRAMIDE HCL INJ 5 MG/ML 2 ML VIAL IV SCH ×2 (08:24→21:38)
[2020-06-08] MEDS: INSULIN ASPART 100 UNITS/ML 3 ML PEN SC SCH ×4 (08:26→21:32)
--- NOTE | 2020-06-08 09:07 | Gastroenterology Progress Note ---
Date of Service June 08, 2020 Assessment & Plan (1) Diverticulitis: (2) Nausea: Pt is a 79 y/o female admitted for recurrent diverticulitis. GI consulted for nausea. Hx of DM II, gastroparesis. She's on Cipro/Flagyl antibx, wonder if perhaps nausea is worse w Flagyl use + Gastroparesis. CT w/o signs of obstruction other that uncomplicated diverticulitis. Mild improvement of nausea, she did notice yesterday Reglan helped some. Less abd pain. Is c/o SOB and L flank discomfort w urination today - Augmentin x 10-14 days for diverticulitis treatment - Trial a dose of Emend IV x 1 dose. Then can continue Reglan 5mg IV BID to promote GI motility & Phernergran PRN - Obtain CXR - Check UA + urine culture if indicated - Upon DC will help schedule f/u visit with Dr. Zulay Eagle to discuss possible repeat EUS for stromal tumor monitoring Admission and Anticipated Discharge Date Admission Date: June 02, 2020 Supervising Physician Co-Signing Physician Notes I have seen and examined the patient and discussed the management with NIECY San. Nausea somewhat improved, with some flank pain that is new. Tolerating a diet. PE essentially unchanged, Labs reviewed Will try one dose of emend today to see if that helps. Subjective Slight improvement on nausea but still present. Less abd pain. She is reporting increased SOB w/o cough or CP today. When urinating felt L flank discomfort but denies dysuria or hematuria Review of Systems Review of Systems: All systems reviewed & are unremarkable except as noted in HPI & below Physical Exam Constitutional: WD/WN, vitals as above well groomed, cooperative and comfortable Eyes: PERRL, conjunctivae normal, anicteric sclerae ENMT: external ear and nose normal, oropharynx normal Respiratory: normal respiratory effort; no respiratory distress and does not use accessory muscles Auscultation: + diminished lung sounds Cardiovascular: RRR, no murmur, no edema Gastrointestinal (Abdomen): Inspection/Auscultation: normal bowel sounds Percussion/Palpation: + abdomen tender (LLQ) and abdomen soft Skin: no rashes, warm and dry no jaundice Psychiatric: A+Ox3, euthymic affect Lymphatic: no lymphedema Results & Data ([facility]) Vital Signs (Past 12 Hours) Vital Signs Temp Pulse Resp BP Pulse Ox 08/27/20 07:17 36.5 C 71 18 125/67 96 06/08/20 07:10 81 18 97 06/07/20 23:05 36.8 C 70 20 113/64
[2020-06-08] MEDS: PROMETHAZINE HCL 25 MG/20 ML UDP PO PRN (09:08)
--- NOTE | 2020-06-08 09:58 | XRay Report ---
XR chest 2V PA/lateral HISTORY: Shortness of breath. COMPARISON: Chest 02/27/2018. FINDINGS: The heart remains mildly enlarged. Mild diffuse interstitial thickening, unchanged. A few s mall bibasilar linear densities persist and favor scarring or atelectasis. No new focal lung consolid ations to suggest pneumonia. No evidence for edema. IMPRESSION: No significant change compared to the prior study. No acute process. ACT 112: Negative or not required by law. Electronically signed by: Greg Waggoner M.D. 06/08/2020 9:56 AM
[2020-06-08 10:08] LABS: Appearance Urine Cloudy (Clear); Bilirubin Urine Negative (Negative); Blood Urine Negative (Negative); Color Urine Yellow; Epithelial Cell Urine Auto >30 /lpf (0-5); Glucose Urine UA Negative (Negative); Ketones Urine Negative (Negative); Leukocyte Esterase Urine 1+ (Negative); Nitrite Urine Negative (Negative); Protein Urine Negative (Negative); Urobilinogen Urine Negative (Negative); pH Urine 7.5 (4.5-7.5)
[2020-06-08 10:30] LABS: Bacteria Urine Automated 1+ (Negative); RBC Urine Automated 0-4 /hpf (0-4)
[2020-06-08] MEDS ORDERED: ONDANSETRON 4 MG OD TAB PO SCH (11:30)
[2020-06-08] MEDS ORDERED: FOSAPREPITANT DIMEGLUMINE 150 MG in SODIUM CHLORIDE 0.9% 145 ML IV ONE (12:45)
--- NOTE | 2020-06-08 17:11 | Hospitalist Progress Note ---
Date of Service June 08, 2020 Assessment & Plan (1) Diverticulitis: Augmentin, supportive antiemetics for nausea (2) Diabetes mellitus, type 2: -Hgb A1c 7.0 02/2020 -Hold oral agents and utilize NovoLog per protocol while hospitalized, at goal. (3) Paroxysmal atrial fibrillation: -On diltiazem for rate control, will continue -Not anticoagulated due to history of GI bleeding. S/p watchman procedure (4) Chronic diastolic CHF (congestive heart failure): -Patient appears euvolemic -Hold furosemide due to acute illness -No evidence of fluid overload (5) COPD (chronic obstructive pulmonary disease): -Appears stable, no signs of acute exacerbation -Saturating well on chronic 2 L of oxygen -Continue home inhalers (6) DVT prophylaxis: -SCDs due to history of GI bleeding and current diverticulitis Full Code Dispo-to home (lives alone) once she is feeling better and nausea is better managed. Ruby Begum DO [facility] Hospitalist Admission and Anticipated Discharge Date Admission Date: June 02, 2020 Subjective +nausea +LLQ abdominal pain denies other symptoms at this time Review of Systems Review of Systems: All systems reviewed & are unremarkable except as noted in Subjective Physical Exam Physical Exam: CONSTITUTIONAL: obese, vitals as above, generally well- appearing EYES: normal conjunctivae, no scleral icterus ENT: external ear and nose normal, oropharynx clear, MMM NECK: trachea midline RESPIRATORY: clear to auscultation bilaterally, no crackles, rales or wheezes, normal respiratory effort CARDIOVASCULAR: regular rate and rhythm, S1 and 2 heard without murmurs, gallops or rubs, no JVD, no peripheral edema CHEST: inspection of chest was normal GASTROINTESTINAL: normal bowel sounds, soft, TTP in LLQ region, nondistended MUSCULOSKELETAL: strength 5/5 throughout, head is normocephalic and atraumatic, neck supple, normal palpation of chest wall without tenderness SKIN: warm and dry NEUROLOGIC: No facial palsy, no dysarthria. CN 2-12 grossly intact, no sensory deficit, normal cognition, normal speech, no gross focal deficits. PSYCHIATRIC: alert cooperative and oriented to person, place and time. Results & Data Results & Data ([facility]) Vital Signs (Past 12 Hours) Vital Signs Temp Pulse Resp BP BP Pulse Ox 06/08/20 15:48 36.5 C 65 18 98/54 L 94 06/08/20 15:05 62 18 96 06/08/20 10:45 80 18 97 06/08/20 07:17 36.5 C 71 18 125/67 96 06/08/20 07:10 81 18 97 Laboratory Results Urine 06/08/20 Range/Units Unknown Urine Color Yellow Urine Appearance Cloudy A (Clear) Urine pH 7.5 (4.5-7.5) Ur Specific [place] 1.010 (1.000-1.030) Urine Protein Negative (Negative) Urine Glucose (UA) Negative (Negative) Diagnostic Findings XR chest 2V PA/lateral HISTORY: Shortness of breath. COMPARISON: Chest 02/27/2018. FINDINGS: The heart remains mildly enlarged. Mild diffuse interstitial thickening, unchanged. A few small bibasilar linear densities persist and favor scarring or atelectasis. No new focal lung consolidations to suggest pneumonia. No evidence for edema. IMPRESSION: No significant change compared to the prior study. No acute process. Medications Administered Current Inpatient Medications Acetaminophen (Acetaminophen 325 Mg Tab) 650 mg PO Q4H PRN PRN Reason: pain/fever Stop: 07/02/20 17:09 Hydrocodone Bitart/Acetaminophen (Hydrocodone/Acetamophen 5/325mg Tab) 1 tab PO QID PRN PRN Reason: Pain Stop: 06/16/20 17:14 Last Admin: 06/07/20 21:25 Dose: 1 tab Documented by: Al Hydrox/Mg Hydrox/Simethicone (Aluminum/Magnesium/Simeth (Maalox Max) 30 Ml Udc) 30 ml PO Q6H PRN PRN Reason: Dyspepsia Stop: 07/05/20 15:42 Albuterol (Albuterol Hfa 8 Gm Inhaler) 1 puffs INH QIDR [facility] Stop: 07/02/20 20:29 Last Admin: 06/08/20 15:02 Dose: 1 puffs Documented by: Amoxicillin/Clavulanate Potassium (Amoxicillin/Clavulanate 875 Mg Tab) 1 tab PO BIDM [facility] Stop: 06/16/20 16:59 Last Admin: 06/08/20 08:23 Dose: 1 tab Documented by: Aspirin (Aspirin 81 Mg Ectab) 81 mg PO QAM [facility] Stop: 07/03/20 08:59 Last Admin: 06/08/20 08:24 Dose: 81 mg Documented by: Atorvastatin Calcium (Atorvastatin 40 Mg Tab) 40 mg PO HS [facility] Stop: 07/02/20 20:59 Last Admin: 06/07/20 21:17 Dose: 40 mg Documented by: Bimatoprost (Bimatoprost 0.01% Op Soln 2.5 Ml Btl) 1 drops OP HS [facility] Stop: 07/02/20 20:59 Last Admin: 06/07/20 21:17 Dose: 1 drops Documented by: Brinzolamide (Brinzolamide (Azopt) Ops 10 Ml Btl) 1 drops OP BID [facility] Stop: 07/02/20 20:59 Last Admin: 06/08/20 08:22 Dose: 1 drops Documented by: Dextrose (Dextrose 50% 50 Ml Syringe) 25 - 50 ml IV UD PRN; Protocol PRN Reason: Hypoglycemia Protocol Stop: 07/02/20 21:44 Dicyclomine HCl (Dicyclomine Hcl 10 Mg Cap) 10 mg PO BID [facility] Stop: 07/07/20 20:59 Last Admin: 06/08/20 08:24 Dose: 10 mg Documented by: Diltiazem HCl (Diltiazem Hcl 180 Mg Capcr) 360 mg PO QAM [facility] Stop: 07/03/20 08:59 Last Admin: 06/08/20 08:23 Dose: 360 mg Documented by: Ferrous Sulfate (Ferrous Sulfate 325 Mg Tab) 325 mg PO QAM [facility] Stop: 07/03/20 08:59 Last Admin: 06/08/20 08:23 Dose: 325 mg Documented by: Glucagon (Glucagon For Inj 1 Mg Vial) 1 mg IM UD PRN; Protocol PRN Reason: Hypoglycemia Protocol Stop: 07/02/20 21:44 Glucose (Glucose 40% Gel 15 Gm Tube) 15 - 30 gm PO UD PRN; Protocol PRN Reason: Hypoglycemia Protocol Stop: 07/02/20 21:44 Glucose (Glucose 10 Tabs/Tube) 4 - 8 tabs PO UD PRN; Protocol PRN Reason: Hypoglycemia Protocol Stop: 07/02/20 21:44 Insulin Aspart (Insulin Aspart 100 Units/Ml 3 Ml Pen) 0 units SC ACHS [facility] Stop: 07/03/20 07:29 Last Admin: 06/08/20 12:20 Dose: 5 units Documented by: Ipratropium [place] (Ipratropium [place] Hfa Inhaler) 1 puffs INH QIDR [facility] Stop: 07/02/20 20:29 Last Admin: 06/08/20 15:02 Dose: 1 puffs Documented by: Metoclopramide HCl (Metoclopramide Hcl Inj 5 Mg/Ml 2 Ml Vial) 5 mg IV BID [facility] Stop: 07/06/20 20:59 Last Admin: 06/08/20 08:24 Dose: 5 mg Documented by: Miscellaneous (Zafirlukast 20 Mg Order Awaiting Action) 1 ea N/A QS [facility] Stop: 07/03/20 00:00 Last Admin: 06/08/20 15:56 Dose: Not Given Documented by: Miscellaneous (Carbohydrates For Hypoglycemia ) 15 - 30 gm PO UD PRN PRN Reason: Hypoglycemia Treatment Stop: 07/02/20 21:44 Pantoprazole Sodium (Pantoprazole 40 Mg Tab) 40 mg PO BID [facility]; Protocol Stop: 07/02/20 20:59 Last Admin: 06/08/20 08:23 Dose: 40 mg Documented by: Polyethylene Glycol (Polyethylene (Miralax) 17 Gm Pack) 17 gm PO DAILY PRN PRN Reason: Constipation Stop: 07/03/20 10:41 Polyethylene Glycol (Polyethylene (Miralax) 17 Gm Pack) 17 gm PO DAILY [facility] Stop: 07/04/20 13:59 Last Admin: 06/08/20 08:21 Dose: 17 gm Documented by: Promethazine HCl (Promethazine Hcl 25 Mg/20 Ml Udp) 25 mg PO Q6H PRN PRN Reason: Nausea And Vomiting Stop: 07/07/20 17:44 Last Admin: 06/08/20 09:08 Dose: 25 mg Documented by: Umeclidinium [place] (Umeclidinium [place] 62.5mcg/Blister 7 Puffs/Inhaler) 1 puffs INH QAM [facility] Stop: 07/03/20 08:59 Last Admin: 06/08/20 08:22 Dose: 1 puffs Documented by:
[2020-06-08] MEDS: HYDROCODONE/ACETAMOPHEN 5/325MG TAB PO PRN (21:35)
[2020-06-08] MEDS: ATORVASTATIN 40 MG TAB PO SCH (21:36)
[2020-06-08] MEDS: BIMATOPROST 0.01% OP SOLN 2.5 ML BTL OP SCH (21:38)
[2020-06-09] MEDS: ALBUTEROL HFA 8 GM INHALER INH SCH ×4 (06:58→19:02)
[2020-06-09] MEDS: IPRATROPIUM BROMIDE HFA INHALER INH SCH ×4 (06:58→19:01)
[2020-06-09] MEDS: HYDROCODONE/ACETAMOPHEN 5/325MG TAB PO PRN (07:49)
[2020-06-09] MEDS: FERROUS SULFATE 325 MG TAB PO SCH (07:49)
[2020-06-09] MEDS: PANTOprazole 40 MG TAB PO SCH ×2 (07:49→20:52)
[2020-06-09] MEDS: DICYCLOMINE HCL 10 MG CAP PO SCH ×2 (07:49→20:52)
[2020-06-09] MEDS: METOCLOPRAMIDE HCL INJ 5 MG/ML 2 ML VIAL IV SCH (07:50)
[2020-06-09] MEDS: UMECLIDINIUM BROMIDE 62.5MCG/BLISTER 7 PUFFS/INHALER INH SCH (07:52)
[2020-06-09] MEDS: POLYETHYLENE (MIRALAX) 17 GM PACK PO SCH (07:52)
[2020-06-09] MEDS: dilTIAZem HCL 180 MG CAPCR PO SCH (07:52)
[2020-06-09] MEDS: BRINZOLAMIDE (AZOPT) OPS 10 ML BTL OP SCH ×2 (07:53→20:51)
[2020-06-09] MEDS: AMOXICILLIN/CLAVULANATE 875 MG TAB PO SCH ×2 (07:53→17:30)
[2020-06-09] MEDS: ASPIRIN 81 MG ECTAB PO SCH (07:53)
[2020-06-09] MEDS: INSULIN ASPART 100 UNITS/ML 3 ML PEN SC SCH ×4 (08:02→20:51)
[2020-06-09] MEDS: PROMETHAZINE HCL 25 MG/20 ML UDP PO PRN (08:22)
--- NOTE | 2020-06-09 09:19 | Gastroenterology Progress Note ---
Date of Service June 09, 2020 Assessment & Plan (1) Diverticulitis: (2) Nausea: Pt is a 79 y/o female admitted for recurrent diverticulitis. GI consulted for nausea. Hx of DM II, gastroparesis. She's on Cipro/Flagyl antibx, wonder if perhaps nausea is worse w Flagyl use + Gastroparesis. CT w/o signs of obstruction other that uncomplicated diverticulitis. Nausea improved w Emend, not requiring Phenergan as often. She is feeling a bit shaky this AM, will plan to DC Reglan. - Augmentin x 10-14 days for diverticulitis treatment - DC Reglan given shakiness; will continue Phenergan 25mg q6hr prn nausea - F/U urine culture - Upon DC will help schedule f/u visit with Dr. Zulay Eagle to discuss possible repeat EUS for stromal tumor monitoring - GI to sign off; pls recall prn over the weekend if new concerns/questions Admission and Anticipated Discharge Date Admission Date: June 02, 2020 Supervising Physician Co-Signing Physician Notes 79 yo fm with a history of diverticulitis on augmentin, nausea that improved on emend yesterday. Not tolerating reglan very well - tolerates phenergan. PE - slightly sob, cv - rrr no mrg, pulm - ctab, abd - soft nt nd +bs, skin- no rashes noted Chart reviewed Continue augmentin for diverticulitis, scheduled phenergan, outpatient follow-up for GIST. Subjective Pt reports less nausea, less abd pain. BM with Miralax yesterday, no rectal bleeding. She is feeling a bit shaky this AM Review of Systems Review of Systems: All systems reviewed & are unremarkable except as noted in HPI & below Physical Exam Constitutional: WD/WN, vitals as above well groomed, cooperative and comfortable Eyes: PERRL, conjunctivae normal, anicteric sclerae ENMT: external ear and nose normal, oropharynx normal Respiratory: normal respiratory effort; no respiratory distress and does not use accessory muscles Auscultation: + diminished lung sounds Cardiovascular: RRR, no murmur, no edema Gastrointestinal (Abdomen): Inspection/Auscultation: normal bowel sounds Percussion/Palpation: + abdomen tender (mild TT LUQ) and abdomen soft Skin: no rashes, warm and dry no jaundice Psychiatric: A+Ox3, euthymic affect Lymphatic: no lymphedema Results & Data ([facility]) Vital Signs (Past 12 Hours) Vital Signs Temp Pulse Pulse Resp BP Pulse Ox 06/09/20 08:00 36.6 C 69 18 100/57 L 97 06/09/20 06:59 63 16 97 06/08/20 23:38 36.9 C 66 16 115/64 98
[2020-06-09] MEDS: ALUMINUM/MAGNESIUM/SIMETH (MAALOX MAX) 30 ML UDC PO PRN (12:17)
[2020-06-09] MEDS ORDERED: GLYCERIN ADULT 12 SUPP/BOX SUPP PR PRN (13:32)
[2020-06-09] MEDS ORDERED: POLYETHYLENE (MIRALAX) 17 GM PACK PO PRN (13:32)
[2020-06-09] MEDS: FUROSEMIDE 40 MG TAB PO SCH (14:19)
--- NOTE | 2020-06-09 19:00 | Hospitalist Progress Note ---
Date of Service June 09, 2020 Assessment & Plan (1) Diverticulitis: Augmentin for 10-14 days (2) Diabetes mellitus, type 2: -Hgb A1c 7.0 02/2020 -Hold oral agents and utilize NovoLog per protocol while hospitalized -currently at goal (3) Paroxysmal atrial fibrillation: -EKG demonstrates rate controlled atrial fibrillation -On diltiazem for rate control, will continue -Not anticoagulated due to history of GI bleeding. S/p watchman procedure (4) Chronic diastolic CHF (congestive heart failure): -Patient appears euvolemic Hold furosemide due to acute illness -No evidence of fluid overload (5) COPD (chronic obstructive pulmonary disease): -Appears stable, no signs of acute exacerbation -Saturating well on chronic 2 L of oxygen -Continue home inhalers -not bronchospastic, no steroids needed at this time. (6) DVT prophylaxis: -SCDs due to history of GI bleeding and current diverticulitis Full Code Dispo-to home when medically stable. Lives alone, has a daughter in town. Ruby Begum DO [facility] Hospitalist Admission and Anticipated Discharge Date Admission Date: June 02, 2020 Subjective still having nausea and LLQ pain despite Emend dose Reglan stopped today per GI with onset of tremors, and this wasn't helping much. feels about the same as yesterday Review of Systems Review of Systems: All systems reviewed & are unremarkable except as noted in Subjective Physical Exam Physical Exam: CONSTITUTIONAL: obese, vitals as above, generally well- appearing EYES: normal conjunctivae, no scleral icterus ENT: external ear and nose normal, oropharynx clear, MMM NECK: trachea midline RESPIRATORY: clear to auscultation bilaterally, no crackles, rales or wheezes, normal respiratory effort CARDIOVASCULAR: regular rate and rhythm, S1 and 2 heard without murmurs, gal lops or rubs, no JVD, no peripheral edema CHEST: inspection of chest was normal GASTROINTESTINAL: normal bowel sounds, soft, TTP in LLQ region, nondistended MUSCULOSKELETAL: strength 5/5 throughout, head is normocephalic and atraumatic, neck supple, normal palpation of chest wall without tenderness SKIN: warm and dry NEUROLOGIC: No facial palsy, no dysarthria. CN 2-12 grossly intact, no sensory deficit, normal cognition, normal speech, no gross focal deficits. PSYCHIATRIC: alert cooperative and oriented to person, place and time. Results & Data Results & Data ([facility]) Vital Signs (Past 12 Hours) Vital Signs Temp Pulse Resp BP Pulse Ox 06/09/20 15:09 36.9 C 63 19 102/54 L 96 06/09/20 15:03 65 20 96 06/09/20 12:36 86 16 96 06/09/20 08:00 36.6 C 69 18 100/57 L 97 Medications Administered Current Inpatient Medications Acetaminophen (Acetaminophen 325 Mg Tab) 650 mg PO Q4H PRN PRN Reason: pain/fever Stop: 07/02/20 17:09 Hydrocodone Bitart/Acetaminophen (Hydrocodone/Acetamophen 5/325mg Tab) 1 tab PO QID PRN PRN Reason: Pain Stop: 06/16/20 17:14 Last Admin: 06/09/20 07:49 Dose: 1 tab Documented by: Al Hydrox/Mg Hydrox/Simethicone (Aluminum/Magnesium/Simeth (Maalox Max) 30 Ml Udc) 30 ml PO Q6H PRN PRN Reason: Dyspepsia Stop: 07/05/20 15:42 Last Admin: 06/09/20 12:17 Dose: 30 ml Documented by: Albuterol (Albuterol Hfa 8 Gm Inhaler) 1 puffs INH QIDR [facility] Stop: 07/02/20 20:29 Last Admin: 06/09/20 14:59 Dose: 1 puffs Documented by: Amoxicillin/Clavulanate Potassium (Amoxicillin/Clavulanate 875 Mg Tab) 1 tab PO BIDM [facility] Stop: 06/16/20 16:59 Last Admin: 06/09/20 17:30 Dose: 1 tab Documented by: Aspirin (Aspirin 81 Mg Ectab) 81 mg PO QAM [facility] Stop: 07/03/20 08:59 Last Admin: 06/09/20 07:53 Dose: 81 mg Documented by: Atorvastatin Calcium (Atorvastatin 40 Mg Tab) 40 mg PO HS [facility] Stop: 07/02/20 20:59 Last Admin: 06/08/20 21:36 Dose: 40 mg Documented by: Bimatoprost (Bimatoprost 0.01% Op Soln 2.5 Ml Btl) 1 drops OP [facility] Stop: 07/02/20 20:59 Last Admin: 06/08/20 21:38 Dose: 1 drops Documented by: Brinzolamide (Brinzolamide (Azopt) Ops 10 Ml Btl) 1 drops OP BID [facility] Stop: 07/02/20 20:59 Last Admin: 06/09/20 07:53 Dose: 1 drops Documented by: Dextrose (Dextrose 50% 50 Ml Syringe) 25 - 50 ml IV UD PRN; Protocol PRN Reason: Hypoglycemia Protocol Stop: 07/02/20 21:44 Dicyclomine HCl (Dicyclomine Hcl 10 Mg Cap) 10 mg PO BID [facility] Stop: 07/07/20 20:59 Last Admin: 06/09/20 07:49 Dose: 10 mg Documented by: Diltiazem HCl (Diltiazem Hcl 180 Mg Capcr) 360 mg PO QAM [facility] Stop: 07/03/20 08:59 Last Admin: 06/09/20 07:52 Dose: 360 mg Documented by: Ferrous Sulfate (Ferrous Sulfate 325 Mg Tab) 325 mg PO QAM [facility] Stop: 07/03/20 08:59 Last Admin: 06/09/20 07:49 Dose: 325 mg Documented by: Furosemide (Furosemide 40 Mg Tab) 40 mg PO QAM [facility] Stop: 07/09/20 13:29 Last Admin: 06/09/20 14:19 Dose: 40 mg Documented by: Glucagon (Glucagon For Inj 1 Mg Vial) 1 mg IM UD PRN; Protocol PRN Reason: Hypoglycemia Protocol Stop: 07/02/20 21:44 Glucose (Glucose 40% Gel 15 Gm Tube) 15 - 30 gm PO UD PRN; Protocol PRN Reason: Hypoglycemia Protocol Stop: 07/02/20 21:44 Glucose (Glucose 10 Tabs/Tube) 4 - 8 tabs PO UD PRN; Protocol PRN Reason: Hypoglycemia Protocol Stop: 07/02/20 21:44 Glycerin (Glycerin Adult 12 Supp/Box Supp) 1 supp [place] DAILY PRN PRN Reason: Constipation Stop: 07/09/20 13:31 Insulin Aspart (Insulin Aspart 100 Units/Ml 3 Ml Pen) 0 units SC ACHS [facility] Stop: 07/03/20 07:29 Last Admin: 06/09/20 17:29 Dose: 3 units Documented by: Ipratropium [place] (Ipratropium [place] Hfa Inhaler) 1 puffs INH QIDR [facility] Stop: 07/02/20 20:29 Last Admin: 06/09/20 14:59 Dose: 1 puffs Documented by: Miscellaneous (Zafirlukast 20 Mg Order Awaiting Action) 1 ea N/A QS [facility] Stop: 07/03/20 00:00 Last Admin: 06/09/20 16:08 Dose: Not Given Documented by: Miscellaneous (Carbohydrates For Hypoglycemia ) 15 - 30 gm PO UD PRN PRN Reason: Hypoglycemia Treatment Stop: 07/02/20 21:44 Pantoprazole Sodium (Pantoprazole 40 Mg Tab) 40 mg PO BID [facility]; Protocol Stop: 07/02/20 20:59 Last Admin: 06/09/20 07:49 Dose: 40 mg Documented by: Polyethylene Glycol (Polyethylene (Miralax) 17 Gm Pack) 17 gm PO DAILY [facility] Stop: 07/04/20 13:59 Last Admin: 06/09/20 07:52 Dose: 17 gm Documented by: Polyethylene Glycol (Polyethylene (Miralax) 17 Gm Pack) 17 gm PO TID PRN PRN Reason: Constipation Stop: 07/03/20 10:41 Promethazine HCl (Promethazine Hcl 25 Mg/20 Ml Udp) 25 mg PO Q6H PRN PRN Reason: Nausea And Vomiting Stop: 07/07/20 17:44 Last Admin: 06/09/20 08:22 Dose: 25 mg Documented by: Umeclidinium [place] (Umeclidinium [place] 62.5mcg/Blister 7 Puffs/Inhaler) 1 puffs INH QAM [facility] Stop: 07/03/20 08:59 Last Admin: 06/09/20 07:52 Dose: 1 puffs Documented by:
[2020-06-09] MEDS: BIMATOPROST 0.01% OP SOLN 2.5 ML BTL OP SCH (20:50)
[2020-06-09] MEDS: ATORVASTATIN 40 MG TAB PO SCH (20:52)
[2020-06-10] MEDS: PROMETHAZINE HCL 25 MG TAB PO PRN (04:52)
[2020-06-10] MEDS: IPRATROPIUM BROMIDE HFA INHALER INH SCH ×4 (07:08→19:16)
[2020-06-10] MEDS: ALBUTEROL HFA 8 GM INHALER INH SCH ×4 (07:08→19:16)
[2020-06-10] MEDS: PANTOprazole 40 MG TAB PO SCH ×2 (08:29→20:25)
[2020-06-10] MEDS: UMECLIDINIUM BROMIDE 62.5MCG/BLISTER 7 PUFFS/INHALER INH SCH (08:30)
[2020-06-10] MEDS: AMOXICILLIN/CLAVULANATE 875 MG TAB PO SCH ×2 (08:30→17:52)
[2020-06-10] MEDS: DICYCLOMINE HCL 10 MG CAP PO SCH ×2 (08:30→20:24)
[2020-06-10] MEDS: FERROUS SULFATE 325 MG TAB PO SCH (08:30)
[2020-06-10] MEDS: dilTIAZem HCL 180 MG CAPCR PO SCH (08:30)
[2020-06-10] MEDS: FUROSEMIDE 40 MG TAB PO SCH (08:30)
[2020-06-10] MEDS: ASPIRIN 81 MG ECTAB PO SCH (08:30)
[2020-06-10] MEDS: INSULIN ASPART 100 UNITS/ML 3 ML PEN SC SCH ×4 (08:31→20:25)
[2020-06-10] MEDS: POLYETHYLENE (MIRALAX) 17 GM PACK PO SCH (08:31)
[2020-06-10] MEDS: BRINZOLAMIDE (AZOPT) OPS 10 ML BTL OP SCH ×2 (08:31→20:23)
[2020-06-10] MEDS: HYDROCODONE/ACETAMOPHEN 5/325MG TAB PO PRN ×2 (08:41→17:52)
[2020-06-10] MEDS: ONDANSETRON 4 MG OD TAB PO PRN ×2 (11:40→20:23)
--- NOTE | 2020-06-10 18:14 | Hospitalist Progress Note ---
Date of Service June 10, 2020 Assessment & Plan (1) Nausea: Chronic diabetic gastroparesis, and terminologist constipation. Acute diverticulitis as below. Miralax improved her constipation and with the antiemetics she was feeling better. Reglan trial started per GI. She will need a repeat EGD as outpatient. Consider scheduled phenergan (2) Gastroparesis: Long-term gastroparesis. Encouraged to eat portions of meals slowly and have frequent meals during the day. (3) Diverticulitis: Pt reports nausea which is chronic likely 2/2 diabetic gastroparesis, became much worse 2 weeks ago. 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 She is also having a workup with Endocrinology regarding hyperthyroidism. CT a/p in the ER revealed acute sigmoid diverticulitis. She was originally started on Zosyn, which was switched to Cipro/Flagyl and then to Augmentin which is what she is still taking. (4) Constipation: Miralax PRN-resolved. (5) Diabetes mellitus, type 2: -Hgb A1c 7.0 02/2020 -Hold oral agents and utilize NovoLog per protocol while hospitalized. At goal (6) Paroxysmal atrial fibrillation: On diltiazem for rate control, will continue Not anticoagulated due to history of GI bleeding. S/p watchman procedure (7) Chronic diastolic CHF (congestive heart failure): -Patient appears euvolemic -Hold furosemide due to acute illness -No evidence of fluid overload (8) COPD (chronic obstructive pulmonary disease): -Appears stable, no signs of acute exacerbation -Saturating well on chronic 2 L of oxygen -Continue home inhalers (9) DVT prophylaxis: -SCDs due to history of GI bleeding and current diverticulitis Full Code Dispo-to home when nausea is more controlled. Ruby Begum DO [facility] Hospitalist Admission and Anticipated Discharge Date Admission Date: June 02, 2020 Subjective doing well with still some nausea and persistent LLQ pain which is continuing to improve. She ambulates to and from the bathroom and is tolerating PO. Review of Systems Review of Systems: All systems reviewed & are unremarkable except as noted in Subjective Physical Exam Physical Exam: CONSTITUTIONAL: obese, vitals as above, generally well- appearing EYES: normal conjunctivae, no scleral icterus ENT: external ear and nose normal, oropharynx clear, MMM NECK: trachea midline RESPIRATORY: clear to auscultation bilaterally, no crackles, rales or wheezes, normal respiratory effort CARDIOVASCULAR: regular rate and rhythm, S1 and 2 heard without murmurs, gallops or rubs, no JVD, no peripheral edema CHEST: inspection of chest was normal GASTROINTESTINAL: normal bowel sounds, soft, TTP in LLQ region, nondistended MUSCULOSKELETAL: strength 5/5 throughout, head is normocephalic and atraumatic, neck supple, normal palpation of chest wall without tenderness SKIN: warm and dry NEUROLOGIC: No facial palsy, no dysarthria. CN 2-12 grossly intact, no sensory deficit, normal cognition, normal speech, no gross focal deficits. PSYCHIATRIC: alert cooperative and oriented to person, place and time. Results & Data Results & Data ([facility]) Vital Signs (Past 12 Hours) Vital Signs Temp Pulse Pulse Resp BP Pulse Ox 06/10/20 15:37 36.8 C 60 18 105/59 L 96 06/10/20 11:21 84 18 94 06/10/20 07:30 36.6 C 77 18 119/70 94 06/10/20 07:09 66 14 99 Medications Administered Current Inpatient Medications Acetaminophen (Acetaminophen 325 Mg Tab) 650 mg PO Q4H PRN PRN Reason: pain/fever Stop: 07/02/20 17:09 Hydrocodone Bitart/Acetaminophen (Hydrocodone/Acetamophen 5/325mg Tab) 1 tab PO QID PRN PRN Reason: Pain Stop: 06/16/20 17:14 Last Admin: 06/10/20 17:52 Dose: 1 tab Documented by: Al Hydrox/Mg Hydrox/Simethicone (Aluminum/Magnesium/Simeth (Maalox Max) 30 Ml Udc) 30 ml PO Q6H PRN PRN Reason: Dyspepsia Stop: 07/05/20 15:42 Last Admin: 06/09/20 12:17 Dose: 30 ml Documented by: Albuterol (Albuterol Hfa 8 Gm Inhaler) 1 puffs INH QIDR [facility] Stop: 07/02/20 20:29 Last Admin: 06/10/20 15:26 Dose: 1 puffs Documented by: Amoxicillin/Clavulanate Potassium (Amoxicillin/Clavulanate 875 Mg Tab) 1 tab PO BIDM [facility] Stop: 06/16/20 16:59 Last Admin: 06/10/20 17:52 Dose: 1 tab Documented by: Aspirin (Aspirin 81 Mg Ectab) 81 mg PO QAM [facility] Stop: 07/03/20 08:59 Last Admin: 06/10/20 08:30 Dose: 81 mg Documented by: Atorvastatin Calcium (Atorvastatin 40 Mg Tab) 40 mg PO HS [facility] Stop: 07/02/20 20:59 Last Admin: 06/09/20 20:52 Dose: 40 mg Documented by: Bimatoprost (Bimatoprost 0.01% Op Soln 2.5 Ml Btl) 1 drops OP HS [facility] Stop: 07/02/20 20:59 Last Admin: 06/09/20 20:50 Dose: 1 drops Documented by: Brinzolamide (Brinzolamide (Azopt) Ops 10 Ml Btl) 1 drops OP BID [facility] Stop: 07/02/20 20:59 Last Admin: 06/10/20 08:31 Dose: 1 drops Documented by: Dextrose (Dextrose 50% 50 Ml Syringe) 25 - 50 ml IV UD PRN; Protocol PRN Reason: Hypoglycemia Protocol Stop: 07/02/20 21:44 Dicyclomine HCl (Dicyclomine Hcl 10 Mg Cap) 10 mg PO BID [facility] Stop: 07/07/20 20:59 Last Admin: 06/10/20 08:30 Dose: 10 mg Documented by: Diltiazem HCl (Diltiazem Hcl 180 Mg Capcr) [facility] Stop: 07/03/20 08:59 Last Admin: 06/10/20 08:30 Dose: 360 mg Documented by: Ferrous Sulfate (Ferrous Sulfate 325 Mg Tab) [facility] [place] Stop: 07/03/20 08:59 Last Admin: 06/10/20 08:30 Dose: 325 mg Documented by: Furosemide (Furosemide 40 Mg Tab) 40 mg PO QAM [facility] Stop: 07/09/20 13:29 Last Admin: 06/10/20 08:30 Dose: 40 mg Documented by: Glucagon (Glucagon For Inj 1 Mg Vial) 1 mg IM UD PRN; Protocol PRN Reason: Hypoglycemia Protocol Stop: 07/02/20 21:44 Glucose (Glucose 40% Gel 15 Gm Tube) 15 - 30 gm PO UD PRN; Protocol PRN Reason: Hypoglycemia Protocol Stop: 09/20/20 21:44 Glucose (Glucose 10 Tabs/Tube) 4 - 8 tabs PO UD PRN; Protocol PRN Reason: Hypoglycemia Protocol Stop: 07/02/20 21:44 Glycerin (Glycerin Adult 12 Supp/Box Supp) 1 supp [place] DAILY PRN PRN Reason: Constipation Stop: 07/09/20 13:31 Insulin Aspart (Insulin Aspart 100 Units/Ml 3 Ml Pen) 0 units SC ACHS [facility] Stop: 07/03/20 07:29 Last Admin: 06/10/20 17:53 Dose: 3 units Documented by: Ipratropium [place] (Ipratropium [place] Hfa Inhaler) 1 puffs INH QIDR [facility] Stop: 07/02/20 20:29 Last Admin: 06/10/20 15:26 Dose: 1 puffs Documented by: Miscellaneous (Zafirlukast 20 Mg Order Awaiting Action) 1 ea N/A QS [facility] Stop: 07/03/20 00:00 Last Admin: 06/10/20 17:52 Dose: Not Given Documented by: Miscellaneous (Carbohydrates For Hypoglycemia ) 15 - 30 gm PO UD PRN PRN Reason: Hypoglycemia Treatment Stop: 07/02/20 21:44 Ondansetron HCl (Ondansetron 4 Mg Od Tab) 4 mg PO Q8H PRN PRN Reason: nausea/vomiting Stop: 07/10/20 08:57 Last Admin: 06/10/20 11:40 Dose: 4 mg Documented by: Pantoprazole Sodium (Pantoprazole 40 Mg Tab) 40 mg PO BID [facility]; Protocol Stop: 07/02/20 20:59 Last Admin: 06/10/20 08:29 Dose: 40 mg Documented by: Polyethylene Glycol (Polyethylene (Miralax) 17 Gm Pack) 17 gm PO DAILY [facility] Stop: 07/04/20 13:59 Last Admin: 06/10/20 08:31 Dose: 17 gm Documented by: Polyethylene Glycol (Polyethylene (Miralax) 17 Gm Pack) 17 gm PO TID PRN PRN Reason: Constipation Stop: 07/03/20 10:41 Promethazine HCl (Promethazine Hcl 25 Mg Tab) 25 mg PO Q6H PRN PRN Reason: Nausea And Vomiting Stop: 07/10/20 04:47 Last Admin: 06/10/20 04:52 Dose: 25 mg Documented by: Umeclidinium [place] (Umeclidinium [place] 62.5mcg/Blister 7 Puffs/Inhaler) 1 puffs INH QAM [facility] Stop: 07/03/20 08:59 Last Admin: 06/10/20 08:30 Dose: 1 puffs Documented by:
[2020-06-10 20:13] LABS: Prothrombin Time 10.6 Seconds (9.0-12.0)
[2020-06-10 20:20] LABS: Basophils # (auto) 0.01 K/uL (0-0.2); Basophils % (auto) 0.1 %; Eosinophils % (auto) 4.9 %; Hematocrit (blood only) 37.7 % (37-47); Hemoglobin 11.7 g/dL (12.0-16.0); Immature Granulocytes # (auto) 0.06 K/uL (0.00-0.02); Immature Granulocytes % (auto) 0.4 %; Lymphocytes # (auto) 4.71 K/uL (1.2-3.4); Lymphocytes % (auto) 32.7 %; Mean Corpuscular Hemoglobin 27.4 pg (25-34); Mean Corpuscular Volume 88.3 fL (80-100); Mean Platelet Volume 9.6 fL (7.4-10.4); Monocytes # (auto) 1.65 K/uL (0.11-0.59); Monocytes % (auto) 11.5 %; Neutrophils # (auto) 7.28 K/uL (1.4-6.5); Neutrophils % (auto) 50.4 %; Platelet Count 426 K/uL (130-400); RDW Coefficient of Variation 13.8 % (11.5-14.5); RDW Standard Deviation 44.6 fL (36.4-46.3); Red Blood Count 4.27 M/uL (4.2-5.4); White Blood Count 14.41 K/uL (4.8-10.8)
[2020-06-10 20:23] LABS: BUN Creatinine Ratio 13.9 (10-20); Calcium 9.6 mg/dl (8.5-10.1); Creatinine Clr Calc Pharmacy 47.2 ml/min; Est GFR (African American) 52.8; Est GFR (Non-African American) 45.5; Potassium 3.9 mmol/L (3.5-5.1)
[2020-06-10] MEDS: ATORVASTATIN 40 MG TAB PO SCH (20:24)
[2020-06-10] MEDS: BIMATOPROST 0.01% OP SOLN 2.5 ML BTL OP SCH (20:24)
[2020-06-11] MEDS: HYDROCODONE/ACETAMOPHEN 5/325MG TAB PO PRN ×4 (00:17→23:51)
[2020-06-11] MEDS: PROMETHAZINE HCL 25 MG TAB PO PRN ×3 (00:21→21:18)
[2020-06-11 06:07] LABS: Hematocrit (blood only) 30.4 % (37-47); Hemoglobin 9.6 g/dL (12.0-16.0); Mean Corpuscular Hemoglobin 27.8 pg (25-34); Mean Corpuscular Hgb Conc 31.6 g/dL (32-36); Mean Corpuscular Volume 88.1 fL (80-100); Mean Platelet Volume 9.1 fL (7.4-10.4); Platelet Count 344 K/uL (130-400); RDW Coefficient of Variation 13.8 % (11.5-14.5); RDW Standard Deviation 44.2 fL (36.4-46.3); Red Blood Count 3.45 M/uL (4.2-5.4); White Blood Count 11.15 K/uL (4.8-10.8)
[2020-06-11 06:38] LABS: BUN Creatinine Ratio 17.7 (10-20); Calcium 8.9 mg/dl (8.5-10.1); Creatinine Clr Calc Pharmacy 57.4 ml/min; Est GFR (African American) 66.8; Est GFR (Non-African American) 57.6; Potassium 3.9 mmol/L (3.5-5.1)
[2020-06-11] MEDS: IPRATROPIUM BROMIDE HFA INHALER INH SCH ×4 (07:16→19:05)
[2020-06-11] MEDS: ALBUTEROL HFA 8 GM INHALER INH SCH ×4 (07:16→19:05)
[2020-06-11] MEDS: POLYETHYLENE (MIRALAX) 17 GM PACK PO SCH (08:22)
[2020-06-11] MEDS: AMOXICILLIN/CLAVULANATE 875 MG TAB PO SCH ×2 (08:22→17:06)
[2020-06-11] MEDS: DICYCLOMINE HCL 10 MG CAP PO SCH ×2 (08:22→19:52)
[2020-06-11] MEDS: FERROUS SULFATE 325 MG TAB PO SCH (08:22)
[2020-06-11] MEDS: UMECLIDINIUM BROMIDE 62.5MCG/BLISTER 7 PUFFS/INHALER INH SCH (08:22)
[2020-06-11] MEDS: PANTOprazole 40 MG TAB PO SCH ×2 (08:22→19:52)
[2020-06-11] MEDS: BRINZOLAMIDE (AZOPT) OPS 10 ML BTL OP SCH ×2 (08:23→19:53)
[2020-06-11] MEDS: INSULIN ASPART 100 UNITS/ML 3 ML PEN SC SCH ×4 (09:49→21:18)
[2020-06-11] MEDS: ONDANSETRON 4 MG OD TAB PO PRN ×2 (12:32→22:14)
[2020-06-11] MEDS ORDERED: PROMETHAZINE HCL 25 MG TAB PO ONE (14:32)
[2020-06-11 15:13] LABS: Hematocrit (blood only) 29.7 % (37-47); Mean Corpuscular Hemoglobin 27.4 pg (25-34); Mean Corpuscular Hgb Conc 30.3 g/dL (32-36); Mean Corpuscular Volume 90.3 fL (80-100); Mean Platelet Volume 9.3 fL (7.4-10.4); Platelet Count 347 K/uL (130-400); RDW Coefficient of Variation 13.9 % (11.5-14.5); RDW Standard Deviation 45.9 fL (36.4-46.3); Red Blood Count 3.29 M/uL (4.2-5.4); White Blood Count 9.86 K/uL (4.8-10.8)
--- NOTE | 2020-06-11 15:23 | Progress Notes ---
DATE: 06/11/2020 HISTORY OF PRESENT ILLNESS: The patient has been in the hospital and is recovering from diverticulitis and chronic nausea. She has been on antibiotic treatment and improving, but she has been struggling with constipation. She had a bowel movement that was associated with red rectal bleeding. She describes it as "quite a bit." It was painless. She does have a history of hemorrhoids, but she felt that this is more than typical. She denies any abdominal pain or fever. PHYSICAL EXAMINATION: GENERAL: Reveals an elderly woman in no distress, resting comfortably. VITAL SIGNS: Blood pressure is 98/62, pulse is 83, temperature is 36.8. SKIN: Anicteric. EYES: Show anicteric sclerae. MOUTH: Clear lesions. NECK: Supple. CHEST: Has some scattered rhonchi, but is otherwise clear. HEART: Regular. ABDOMEN: Benign with good bowel sounds. There is no organomegaly, masses or rebound tenderness noted. NEUROLOGIC: She is alert and oriented x3 and neurologically grossly intact. LABORATORY DATA: Show a hemoglobin on admission of 11.7 and today it is 9.6. IMPRESSION: An 79-year-old woman being treated for diverticulitis, now red rectal bleeding. Most likely this is related to diverticular bleeding. This typically follows an independent path from diverticulitis. The other possibility is outlet bleeding from hemorrhoids given her recent constipation. At this point, I do not think endoscopy would add to her care and may contribute to risks of morbidity. I would continue to follow her hemoglobin. Keep her stools soft and transfuse as need be. She has had a severe diverticular bleed in the past, so it would not be unusual for her to have another episode. Hopefully, this stops with conservative management.
[2020-06-11] MEDS ORDERED: SODIUM CHLORIDE 0.9% 500 ML IV SCH (15:45)
--- NOTE | 2020-06-11 18:08 | Hospitalist Progress Note ---
Date of Service June 11, 2020 Assessment & Plan (1) Nausea: Chronic diabetic gastroparesis, and fci constipation. Acute diverticulitis as below. Miralax improved her constipation and with the antiemetics she was feeling better. Reglan trial started per GI. However, this was not very helpful and stopped when she reported some tremors. 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 She will need a repeat EGD as outpatient. Cont supportive care. She is also having a workup with Endocrinology regarding hyperthyroidism and unsure if this may be contributing. (2) Diverticulitis: LLQ abdominal pain. CT a/p in the ER revealed acute sigmoid diverticulitis. She was originally started on Zosyn, which was switched to Cipro/Flagyl and then to Augmentin which is what she is still taking now to complete her course. No fever and pain was continuing to improve but was slightly worse today after the hematochezia last night. (3) Hematochezia: Notified by the nurse around 730p that she had a large bright red bloody BM. May be related to the diverticulitis, however, this is a new symptom. Holing aspirin, Dilitiazem, and lasix for now. Giving lfuids for hypotension and positive orthostatics. Cont SCDs/ambulation for DVT prophylaxis. Trend H/H overnight and transfuse if necessary. (4) Constipation: Miralax PRN-resolved. (5) Diabetes mellitus, type 2: -Hgb A1c 7.0 02/2020 -Hold oral agents and utilize NovoLog per protocol while hospitalized. At goal (6) Paroxysmal atrial fibrillation: -EKG demonstrates rate controlled atrial fibrillation -On diltiazem for rate control, will continue -Not anticoagulated due to history of GI bleeding. S/p watchman procedure (7) Chronic diastolic CHF (congestive heart failure): -Patient appears euvolemic -Hold furosemide due to acute illness and while receiving IVF -No evidence of fluid overload (8) COPD (chronic obstructive pulmonary disease): -Appears stable, no signs of acute exacerbation -Saturating well on chronic 2 L of oxygen -Continue home inhalers (9) DVT prophylaxis: -SCDs due to history of GI bleeding and current diverticulitis Full Code Dispo-to home when nausea is more controlled. Ruby Begum DO [facility] Hospitalist Admission and Anticipated Discharge Date Admission Date: June 02, 2020 Subjective large bright red bowel movement that did not continue. She has felt more n auseous today with a worsening of her LLQ abodminal area. She feels more nauseous and lightheaded with standing. Nurse checked orthostatics which were positive. Giving some additional fluids at this time. Continuing with antiemetics PRN. She was also seen by GI physician who pointed out a h/o prior diverticular bleed for her in the past. Will continue supportive care with antiemetics, transfusions PRN and hemodynamic support PRN for now with the hope this resolves on its own. She has tolerated PO but not as much today. Denies other symptoms. Review of Systems Review of Systems: All systems reviewed & are unremarkable except as noted in Subjective Physical Exam 2 Physical Exam: CONSTITUTIONAL: obese, vitals as above, generally well- appearing EYES: normal conjunctivae, no scleral icterus ENT: external ear and nose normal, oropharynx clear, MMM NECK: trachea midline RESPIRATORY: clear to auscultation bilaterally, no crackles, rales or wheezes, normal respiratory effort CARDIOVASCULAR: regular rate and rhythm, S1 and 2 heard without murmurs, gallops or rubs, no JVD, no peripheral edema CHEST: inspection of chest was normal GASTROINTESTINAL: normal bowel sounds, soft, TTP in LLQ region, nondistended MUSCULOSKELETAL: strength 5/5 throughout, head is normocephalic and atraumatic, neck supple, normal palpation of chest wall without tenderness SKIN: warm and dry NEUROLOGIC: No facial palsy, no dysarthria. CN 2-12 grossly intact, no sensory deficit, normal cognition, normal speech, no gross focal deficits. PSYCHIATRIC: alert cooperative and oriented to person, place and time. E Results & Data Results & Data ([facility]) Vital Signs (Past 12 Hours) Vital Signs Temp Pulse Resp BP Pulse Ox 06/11/20 15:22 36.8 C 69 18 114/64 96 06/11/20 11:34 83 14 97 06/11/20 11:09 36.8 C 63 18 98/62 L 96 06/11/20 07:16 83 14 97 06/11/20 07:06 36.6 C 70 20 101/59 L 98 Laboratory Results Short CBC 06/10/20 06/11/2020 Range/Units 19:57 05:48 15:02 WBC 14.41 H 11.15 H 9.86 (4.8-10.8) K/uL Hgb 11.7 L 9.6 L 9.0 L (12.0-16.0) g/dL Hct 37.7 30.4 L 29.7 L (37-47) % Plt Count 426 H 344 347 (130-400) K/uL BMP 06/10/20 06/11/20 19:57 05:48 Sodium 138 140 Potassium 3.9 3.9 Chloride 104 105 Carbon Dioxide 29 31 BUN 16 16 Creatinine 1.13 0.93 Glucose 142 H 120 H Calcium 9.6 8.9 Medications Administered Hydrocodone Bitart/Acetaminophen (Hydrocodone/Acetamophen 5/325mg Tab) 1 tab PO QID PRN PRN Reason: Pain Stop: 06/16/20 17:14 Last Admin: 06/11/20 08:28 Dose: 1 tab Documented by: [id number] Admin: 06/11/20 00:17 Dose: 1 tab Documented by: [id number] Admin: 06/10/20 17:52 Dose: 1 tab Documented by: [id number] Admin: 06/10/20 08:41 Dose: 1 tab Documented by: [id number] Admin: 06/09/20 07:49 Dose: 1 tab Documented by: [id number] Admin: 06/08/20 21:35 Dose: 1 tab Documented by: [id number] Admin: 06/07/20 21:25 Dose: 1 tab Documented by: [id number] Admin: 06/07/20 08:17 Dose: 1 tab Documented by: [id number] Admin: 06/06/20 20:28 Dose: 1 tab Documented by: [id number] Admin: 06/06/20 08:00 Dose: 1 tab Documented by: [id number] Admin: 06/05/20 20:33 Dose: 1 tab Documented by: [id number] Admin: 06/05/20 16:31 Dose: 1 tab Documented by: [id number] Admin: 06/05/20 08:38 Dose: 1 tab Documented by: [id number] Admin: 06/04/20 21:03 Dose: 1 tab Documented by: [id number] Admin: 06/04/20 08:12 Dose: 1 tab Documented by: [id number] Admin: 06/03/20 23:45 Dose: 1 tab Documented by: [id number] Admin: 06/03/20 14:09 Dose: 1 tab Documented by: [id number] Admin: 06/03/20 05:45 Dose: 1 tab Documented by: [id number] Admin: 06/02/20 22:09 Dose: 1 tab Documented by: [id number] Hydrox/Mg Hydrox/Simethicone (Aluminum/Magnesium/Simeth (Maalox Max) 30 Ml Ud c) 30 ml PO Q6H PRN PRN Reason: Dyspepsia Stop: 07/05/20 15:42 Last Admin: 06/09/20 12:17 Dose: 30 ml Documented by: [id number] Albuterol (Albuterol Hfa 8 Gm Inhaler) 1 puffs INH QIDR ANDREA Stop: 07/02/20 20:29 Last Admin: 06/11/20 15:04 Dose: 1 puffs Documented by: [id number] Admin: 06/11/20 11:34 Dose: 1 puffs Documented by: [id number] Admin: 06/11/20 07:16 Dose: 1 puffs Documented by: [id number] Admin: 06/10/20 19:16 Dose: 1 puffs Documented by: [id number] Admin: 06/10/20 15:26 Dose: 1 puffs Documented by: [id number] Admin: 06/10/20 11:20 Dose: 1 puffs Documented by: [id number] Admin: 06/10/20 07:08 Dose: 1 puffs Documented by: [id number] Admin: 06/09/20 19:02 Dose: 1 puffs Documented by: [id number] Admin: 06/09/20 14:59 Dose: 1 puffs Documented by: [id number] Admin: 06/09/20 12:35 Dose: 1 puffs Documented by: [id number] Admin: 06/09/20 06:58 Dose: 1 puffs Documented by: [id number] Admin: 06/08/20 19:21 Dose: 1 puffs Documented by: [id number] Admin: 06/08/20 15:02 Dose: 1 puffs Documented by: [id number] Admin: 06/08/20 10:43 Dose: 1 puffs Documented by: [id number] Admin: 06/08/20 07:08 Dose: 1 puffs Documented by: [id number] Admin: 06/07/20 19:18 Dose: 1 puffs Documented by: [id number] Admin: 06/07/20 15:03 Dose: 1 puffs Documented by: [id number] Admin: 06/07/20 11:14 Dose: 1 puffs Documented by: [id number] Admin: 06/07/20 07:07 Dose: 1 puffs Documented by: [id number] Admin: 06/06/20 19:37 Dose: 1 puffs Documented by: [id number] Admin: 06/06/20 15:34 Dose: 1 puffs Documented by: [id number] Admin: 06/06/20 11:10 Dose: 1 puffs Documented by: [id number] Admin: 06/06/20 07:12 Dose: 1 puffs Documented by: [id number] Admin: 06/05/20 19:23 Dose: 1 puffs Documented by: [id number] Admin: 06/05/20 14:25 Dose: 1 puffs Documented by: [id number] Admin: 06/05/20 11:16 Dose: 1 puffs Documented by: [id number] Admin: 06/05/20 07:24 Dose: 1 puffs Documented by: [id number] Admin: 06/04/20 19:14 Dose: 1 puffs Documented by: [id number] Admin: 06/04/20 15:02 Dose: 1 puffs Documented by: [id number] Admin: 06/04/20 11:13 Dose: 1 puffs Documented by: [id number] Admin: 06/04/20 06:53 Dose: 1 puffs Documented by: [id number] Admin: 06/03/20 19:20 Dose: 1 puffs Documented by: [id number] Admin: 06/03/20 15:14 Dose: 1 puffs Documented by: [id number] Admin: 06/03/20 11:10 Dose: 1 puffs Documented by: [id number] Admin: 06/03/20 07:26 Dose: 1 puffs Documented by: [id number] Admin: 06/02/20 22:12 Dose: 1 puffs Documented by: [id number] Amoxicillin/Clavulanate Potassium (Amoxicillin/Clavulanate 875 Mg Tab) 1 tab PO BIDM ANDREA Stop: 06/16/20 16:59 Last Admin: 06/11/20 17:06 Dose: 1 tab Documented by: [id number] Admin: 06/11/20 08:22 Dose: 1 tab Documented by: [id number] Admin: 06/10/20 17:52 Dose: 1 tab Documented by: [id number] Admin: 06/10/20 08:30 Dose: 1 tab Documented by: [id number] Admin: 06/09/20 17:30 Dose: 1 tab Documented by: [id number] Admin: 06/09/20 07:53 Dose: 1 tab Documented by: [id number] Admin: 06/08/20 17:33 Dose: 1 tab Documented by: [id number] Admin: 06/08/20 08:23 Dose: 1 tab Documented by: [id number] Admin: 06/07/20 17:30 Dose: 1 tab Documented by: [id number] Admin: 06/07/20 08:10 Dose: 1 tab Documented by: [id number] Admin: 06/06/20 17:35 Dose: 1 tab Documented by: [id number] Aspirin (Aspirin 81 Mg Ectab) 81 mg PO QA ANDREA Stop: 07/03/20 08:59 Last Admin: 06/10/20 08:30 Dose: 81 mg Documented by: [id number] Admin: 06/09/20 07:53 Dose: 81 mg Documented by: [id number] Admin: 06/08/20 08:24 Dose: 81 mg Documented by: [id number] Admin: 06/07/20 08:10 Dose: 81 mg Documented by: [id number] Admin: 06/06/20 08:01 Dose: 81 mg Documented by: [id number] Admin: 06/05/20 08:31 Dose: 81 mg Documented by: [id number] Admin: 06/04/20 08:02 Dose: 81 mg Documented by: [id number] Admin: 06/03/20 08:20 Dose: 81 mg Documented by: [id number] Atorvastatin Calcium (Atorvastatin 40 Mg Tab) 40 mg PO HS ANDREA Stop: 07/02/20 20:59 Last Admin: 06/10/20 20:24 Dose: 40 mg Documented by: [id number] Admin: 06/09/20 20:52 Dose: 40 mg Documented by: [id number] Admin: 06/08/20 21:36 Dose: 40 mg Documented by: [id number] Admin: 06/07/20 21:17 Dose: 40 mg Documented by: [id number] Admin: 06/06/20 20:24 Dose: 40 mg Documented by: [id number] Admin: 06/05/20 20:34 Dose: 40 mg Documented by: [id number] Admin: 06/04/20 20:53 Dose: 40 mg Documented by: [id number] Admin: 06/03/20 20:22 Dose: 40 mg Documented by: [id number] Admin: 06/02/20 20:12 Dose: 40 mg Documented by: [id number] Bimatoprost (Bimatoprost 0.01% Op Soln 2.5 Ml Btl) 1 drops OP HS ANDREA Stop: 07/02/20 20:59 Last Admin: 06/10/20 20:24 Dose: 1 drops Documented by: [id number] Admin: 06/09/20 20:50 Dose: 1 drops Documented by: [id number] Admin: 06/08/20 21:38 Dose: 1 drops Documented by: [id number] Admin: 06/07/20 21:17 Dose: 1 drops Documented by: [id number] Admin: 06/06/20 20:24 Dose: 1 drops Documented by: [id number] Admin: 06/05/20 20:36 Dose: 1 drops Documented by: [id number] Admin: 06/04/20 20:53 Dose: 1 drops Documented by: [id number] Admin: 06/03/20 20:19 Dose: 1 drops Documented by: [id number] Admin: 06/02/20 20:13 Dose: 1 drops Documented by: [id number] Brinzolamide (Brinzolamide (Azopt) Ops 10 Ml Btl) 1 drops OP BID ANDREA Stop: 07/02/20 20:59 Last Admin: 06/11/20 08:23 Dose: 1 drops Documented by: [id number] Admin: 06/10/20 20:23 Dose: 1 drops Documented by: [id number] Admin: 06/10/20 08:31 Dose: 1 drops Documented by: [id number] Admin: 06/09/20 20:51 Dose: 1 drops Documented by: [id number] Admin: 06/09/20 07:53 Dose: 1 drops Documented by: [id number] Admin: 06/08/20 21:36 Dose: 1 drops Documented by: [id number] Admin: 06/08/20 08:22 Dose: 1 drops Documented by: [id number] Admin: 06/07/20 21:18 Dose: 1 drops Documented by: [id number] Admin: 06/07/20 08:12 Dose: 1 drops Documented by: [id number] Admin: 06/06/20 20:24 Dose: 1 drops Documented by: [id number] Admin: 06/06/20 08:01 Dose: 1 drops Documented by: [id number] Admin: 06/05/20 20:36 Dose: 1 drops Documented by: [id number] Admin: 06/05/20 08:27 Dose: 1 drops Documented by: [id number] Admin: 06/04/20 20:53 Dose: 1 drops Documented by: [id number] Admin: 06/04/20 08:02 Dose: 1 drops Documented by: [id number] Admin: 06/03/20 20:19 Dose: 1 drops Documented by: [id number] Admin: 06/03/20 08:22 Dose: 1 drops Documented by: [id number] Admin: 06/02/20 20:13 Dose: 1 drops Documented by: [id number] Dicyclomine HCl (Dicyclomine Hcl 10 Mg Cap) 10 mg PO BID ANDREA Stop: 07/07/20 20:59 Last Admin: 06/11/20 08:22 Dose: 10 mg Documented by: [id number] Admin: 06/10/20 20:24 Dose: 10 mg Documented by: [id number] Admin: 06/10/20 08:30 Dose: 10 mg Documented by: [id number] Admin: 06/09/20 20:52 Dose: 10 mg Documented by: [id number] Admin: 06/09/20 07:49 Dose: 10 mg Documented by: [id number] Admin: 06/08/20 21:36 Dose: 10 mg Documented by: [id number] Admin: 06/08/20 08:24 Dose: 10 mg Documented by: [id number] Admin: 06/07/20 21:18 Dose: 10 mg Documented by: [id number] Diltiazem HCl (Diltiazem Hcl 180 Mg Capcr) 360 mg PO QAM ANDREA Stop: 07/03/20 08:59 Last Admin: 06/10/20 08:30 Dose: 360 mg Documented by: [id number] Admin: 06/09/20 07:52 Dose: 360 mg Documented by: [id number] Admin: 06/08/20 08:23 Dose: 360 mg Documented by: [id number] Admin: 06/07/20 08:11 Dose: 360 mg Documented by: [id number] Admin: 06/06/20 08:00 Dose: 360 mg Documented by: [id number] Admin: 06/05/20 08:30 Dose: 360 mg Documented by: [id number] Admin: 06/04/20 08:03 Dose: 360 mg Documented by: [id number] Admin: 06/03/20 08:21 Dose: 360 mg Documented by: [id number] Ferrous Sulfate (Ferrous Sulfate 325 Mg Tab) 325 mg PO QAM [facility] Stop: 07/03/20 08:59 Last Admin: 06/11/20 08:22 Dose: 325 mg Documented by: [id number] Admin: 06/10/20 08:30 Dose: 325 mg Documented by: [id number] Admin: 06/09/20 07:49 Dose: 325 mg Documented by: [id number] Admin: 06/08/20 08:23 Dose: 325 mg Documented by: [id number] Admin: 06/07/20 08:11 Dose: 325 mg Documented by: [id number] Admin: 06/06/20 08:00 Dose: 325 mg Documented by: [id number] Admin: 06/05/20 08:31 Dose: 325 mg Documented by: [id number] Admin: 06/04/20 08:03 Dose: 325 mg Documented by: [id number] Admin: 06/03/20 08:21 Dose: 325 mg Documented by: [id number] Furosemide (F[facility]semide 40 Mg Tab) [facility] [place] Stop: 07/09/20 13:29 Last Admin: 06/10/20 08:30 Dose: 40 mg Documented by: [id number] Admin: 06/09/20 14:19 Dose: 40 mg Documented by: [id number] Sodium Chloride (Nss) 500 mls @ 125 mls/hr IV .Q4H ANDREA Stop: 06/11/20 19:44 Last Admin: 06/11/20 15:43 Dose: 125 mls/hr Documented by: [id number] Insulin Aspart (Insulin Aspart 100 Units/Ml 3 Ml Pen) 0 units SC ACHS ANDREA Stop: 07/03/20 07:29 Last Admin: 06/11/20 12:31 Dose: 2 units Documented by: [id number] Cosigned by: [id number] Admin: 06/11/20 09:49 Dose: Not Given Documented by: [id number] Cosigned by: [id number] Admin: 06/10/20 20:25 Dose: Not Given Documented by: [id number] Cosigned by: [id number] Admin: 06/10/20 17:53 Dose: 3 units Documented by: [id number] Cosigned by: [id number] Admin: 06/10/20 12:18 Dose: 5 units Documented by: [id number] Cosigned by: [id number] Admin: 06/10/20 08:31 Dose: 3 units Documented by: [id number] Cosigned by: [id number] Admin: 06/09/20 20:51 Dose: Not Given Documented by: [id number] Admin: 06/09/20 17:29 Dose: 3 units Documented by: [id number] Cosigned by: [id number] Admin: 06/09/20 12:18 Dose: 2 units Documented by: [id number] Cosigned by: [id number] Admin: 06/09/20 08:02 Dose: 6 units Documented by: [id number] Cosigned by: [id number] Admin: 06/08/20 21:32 Dose: Not Given Documented by: [id number] Admin: 06/08/20 17:31 Dose: 3 units Documented by: [id number] Cosigned by: [id number] Admin: 06/08/20 12:20 Dose: 5 units Documented by: [id number] Cosigned by: [id number] Admin: 06/08/20 08:26 Dose: 6 units Documented by: [id number] Cosigned by: [id number] Admin: 06/07/20 21:18 Dose: 1 units Documented by: [id number] Cosigned by: [id number] Admin: 06/07/20 17:30 Dose: 5 units Documented by: [id number] Cosigned by: [id number] Admin: 06/07/20 12:30 Dose: 5 units Documented by: [id number] Cosigned by: [id number] Admin: 06/07/20 08:20 Dose: 7 units Documented by: [id number] Cosigned by: [id number] Admin: 06/06/20 20:32 Dose: Not Given Documented by: [id number] Cosigned by: [id number] Admin: 06/06/20 17:11 Dose: 5 units Documented by: [id number] Cosigned by: [id number] Admin: 06/06/20 12:13 Dose: 4 units Documented by: [id number] Cosigned by: [id number] Admin: 06/06/20 08:02 Dose: 5 units Documented by: [id number] Cosigned by: [id number] Admin: 06/05/20 20:35 Dose: 1 units Documented by: [id number] Cosigned by: [id number] Admin: 06/05/20 17:08 Dose: 5 units Documented by: [id number] Cosigned by: [id number] Admin: 06/05/20 12:00 Dose: 4 units Documented by: [id number] Cosigned by: [id number] Admin: 06/05/20 08:29 Dose: 4 units Documented by: [id number] Cosigned by: [id number] Admin: 06/04/20 21:18 Dose: Not Given Documented by: [id number] Cosigned by: [id number] Admin: 06/04/20 17:39 Dose: 4 units Documented by: [id number] Cosigned by: [id number] Admin: 06/04/20 12:14 Dose: 3 units Documented by: [id number] Cosigned by: [id number] Admin: 06/04/20 08:07 Dose: 2 units Documented by: [id number] Cosigned by: [id number] Admin: 06/03/20 20:20 Dose: Not Given Documented by: [id number] Admin: 06/03/20 17:22 Dose: 5 units Documented by: [id number] Cosigned by: [id number] Admin: 06/03/20 12:26 Dose: 3 units Documented by: [id number] Cosigned by: [id number] Admin: 06/03/20 08:23 Dose: 3 units Documented by: [id number] Cosigned by: [id number] Admin: 06/02/20 22:07 Dose: 5 units Documented by: [id number] Cosigned by: [id number] Ipratropium Bonnyman (Ipratropium Bonnyman Hfa Inhaler) 1 puffs INH QIDR ANDREA Stop: 07/02/20 20:29 Last Admin: 06/11/20 15:04 Dose: 1 puffs Documented by: [id number] Admin: 06/11/20 11:33 Dose: 1 puffs Documented by: [id number] Admin: 06/11/20 07:16 Dose: 1 puffs Documented by: [id number] Admin: 06/10/20 19:16 Dose: 1 puffs Documented by: [id number] Admin: 06/10/20 15:26 Dose: 1 puffs Documented by: [id number] Admin: 06/10/20 11:20 Dose: 1 puffs Documented by: [id number] Admin: 06/10/20 07:08 Dose: 1 puffs Documented by: [id number] Admin: 06/09/20 19:01 Dose: 1 puffs Documented by: [id number] Admin: 06/09/20 14:59 Dose: 1 puffs Documented by: [id number] Admin: 06/09/20 12:35 Dose: 1 puffs Documented by: [id number] Admin: 06/09/20 06:58 Dose: 1 puffs Documented by: [id number] Admin: 06/08/20 19:21 Dose: 1 puffs Documented by: [id number] Admin: 06/08/20 15:02 Dose: 1 puffs Documented by: [id number] Admin: 06/08/20 10:43 Dose: 1 puffs Documented by: [id number] Admin: 06/08/20 07:08 Dose: 1 puffs Documented by: [id number] Admin: 06/07/20 19:18 Dose: 1 puffs Documented by: [id number] Admin: 06/07/20 15:02 Dose: 1 puffs Documented by: [id number] Admin: 06/07/20 11:15 Dose: 1 puffs Documented by: [id number] Admin: 06/07/20 07:07 Dose: 1 puffs Documented by: [id number] Admin: 06/06/20 19:36 Dose: 1 puffs Documented by: [id number] Admin: 06/06/20 15:35 Dose: 1 puffs Documented by: [id number] Admin: 06/06/20 11:11 Dose: 1 puffs Documented by: [id number] Admin: 06/06/20 07:12 Dose: 1 puffs Documented by: [id number] Admin: 06/05/20 19:22 Dose: 1 puffs Documented by: [id number] Admin: 06/05/20 14:24 Dose: 1 puffs Documented by: [id number] Admin: 06/05/20 11:16 Dose: 1 puffs Documented by: [id number] Admin: 06/05/20 07:23 Dose: 1 puffs Documented by: [id number] Admin: 06/04/20 19:14 Dose: 1 puffs Documented by: [id number] Admin: 06/04/20 15:03 Dose: 1 puffs Documented by: [id number] Admin: 06/04/20 11:13 Dose: 1 puffs Documented by: [id number] Admin: 06/04/20 06:53 Dose: 1 puffs Documented by: [id number] Admin: 06/03/20 19:20 Dose: 1 puffs Documented by: [id number] Admin: 06/03/20 15:14 Dose: 1 puffs Documented by: [id number] Admin: 06/03/20 11:10 Dose: 1 puffs Documented by: [id number] Admin: 06/03/20 07:26 Dose: 1 puffs Documented by: [id number] Admin: 06/02/20 22:12 Dose: 1 puffs Documented by: [id number] Miscellaneous (Zafirlukast 20 Mg Order Awaiting Action) 1 ea N/A QS ANDREA Stop: 07/03/20 00:00 Last Admin: 06/11/20 15:16 Dose: Not Given Documented by: [id number] Admin: 06/11/20 08:22 Dose: Not Given Documented by: [id number] Admin: 06/10/20 23:43 Dose: Not Given Documented by: [id number] Admin: 06/10/20 17:52 Dose: Not Given Documented by: [id number] Admin: 06/10/20 08:31 Dose: Not Given Documented by: [id number] Admin: 06/09/20 23:14 Dose: Not Given Documented by: [id number] Admin: 06/09/20 16:08 Dose: Not Given Documented by: [id number] Admin: 06/09/20 07:53 Dose: Not Given Documented by: [id number] Admin: 06/08/20 22:51 Dose: Not Given Documented by: [id number] Admin: 06/08/20 15:56 Dose: Not Given Documented by: [id number] Admin: 06/08/20 08:22 Dose: Not Given Documented by: [id number] Admin: 06/08/20 00:43 Dose: Not Given Documented by: [id number] Admin: 06/07/20 16:18 Dose: Not Given Documented by: [id number] Admin: 06/07/20 08:12 Dose: Not Given Documented by: [id number] Admin: 06/07/20 01:00 Dose: Not Given Documented by: [id number] Admin: 06/06/20 15:00 Dose: Not Given Documented by: [id number] Admin: 06/06/20 09:34 Dose: Not Given Documented by: [id number] Admin: 06/05/20 21:23 Dose: Not Given Documented by: [id number] Admin: 06/05/20 14:57 Dose: Not Given Documented by: [id number] Admin: 06/05/20 08:27 Dose: Not Given Documented by: [id number] Admin: 06/04/20 21:18 Dose: Not Given Documented by: [id number] Admin: 06/04/20 14:43 Dose: Not Given Documented by: [id number] Admin: 06/04/20 07:45 Dose: Not Given Documented by: [id number] Admin: 06/03/20 23:45 Dose: Not Given Documented by: [id number] Admin: 06/03/20 16:25 Dose: Not Given Documented by: [id number] Admin: 06/03/20 08:22 Dose: Not Given Documented by: [id number] Admin: 06/03/20 00:22 Dose: Not Given Documented by: [id number] Ondansetron HCl (Ondansetron 4 Mg Od Tab) 4 mg PO Q8H PRN PRN Reason: nausea/vomiting Stop: 07/10/20 08:57 Last Admin: 06/11/20 12:32 Dose: 4 mg Documented by: [id number] Admin: 06/10/20 20:23 Dose: 4 mg Documented by: [id number] Admin: 06/10/20 11:40 Dose: 4 mg Documented by: [id number] Pantoprazole Sodium (Pantoprazole 40 Mg Tab) 40 mg PO BID [facility]; Protocol Stop: 07/02/20 20:59 Last Admin: 06/11/20 08:22 Dose: 40 mg Documented by: [id number] Admin: 06/10/20 20:25 Dose: 40 mg Documented by: [id number] Admin: 06/10/20 08:29 Dose: 40 mg Documented by: [id number] Admin: 06/09/20 20:52 Dose: 40 mg Documented by: [id number] Admin: 06/09/20 07:49 Dose: 40 mg Documented by: [id number] Admin: 06/08/20 21:36 Dose: 40 mg Documented by: [id number] Admin: 06/08/20 08:23 Dose: 40 mg Documented by: [id number] Admin: 06/07/20 21:19 Dose: 40 mg Documented by: [id number] Admin: 06/07/20 08:11 Dose: 40 mg Documented by: [id number] Admin: 06/06/20 20:24 Dose: 40 mg Documented by: [id number] Admin: 06/06/20 08:00 Dose: 40 mg Documented by: [id number] Admin: 06/05/20 20:34 Dose: 40 mg Documented by: [id number] Admin: 06/05/20 08:31 Dose: 40 mg Documented by: [id number] Admin: 06/04/20 20:54 Dose: 40 mg Documented by: [id number] Admin: 06/04/20 08:02 Dose: 40 mg Documented by: [id number] Admin: 06/03/20 20:20 Dose: 40 mg Documented by: [id number] Admin: 06/03/20 08:20 Dose: 40 mg Documented by: [id number] Admin: 06/02/20 20:13 Dose: 40 mg Documented by: [id number] Polyethylene Glycol (Polyethylene (Miralax) 17 Gm Pack) 17 gm PO DAILY ANDREA Stop: 07/04/20 13:59 Last Admin: 06/11/20 08:22 Dose: Not Given Documented by: [id number] Admin: 06/10/20 08:31 Dose: 17 gm Documented by: [id number] Admin: 06/09/20 07:52 Dose: 17 gm Documented by: [id number] Admin: 06/08/20 08:21 Dose: 17 gm Documented by: [id number] Admin: 06/07/20 08:14 Dose: 17 gm Documented by: [id number] Admin: 06/06/20 08:15 Dose: 17 gm Documented by: [id number] Admin: 06/05/20 08:30 Dose: Not Given Documented by: [id number] Admin: 06/04/20 14:18 Dose: Not Given Documented by: [id number] Promethazine HCl (Promethazine Hcl 25 Mg Tab) 25 mg PO Q6H PRN PRN Reason: Nausea And Vomiting Stop: 07/10/20 04:47 Last Admin: 06/11/20 08:28 Dose: 25 mg Documented by: [id number] Admin: 06/11/20 00:21 Dose: 25 mg Documented by: [id number] Admin: 06/10/20 04:52 Dose: 25 mg Documented by: [id number] Umeclidinium Bonnyman (Umeclidinium Bonnyman 62.5mcg/Blister 7 Puffs/Inhaler) 1 puffs INH QAM ANDREA Stop: 07/03/20 08:59 Last Admin: 06/11/20 08:22 Dose: 1 puffs Documented by: [id number] Admin: 06/10/20 08:30 Dose: 1 puffs Documented by: [id number] Admin: 06/09/20 07:52 Dose: 1 puffs Documented by: [id number] Admin: 06/08/20 08:22 Dose: 1 puffs Documented by: [id number] Admin: 06/07/20 08:12 Dose: 1 puffs Documented by: [id number] Admin: 06/06/20 08:01 Dose: 1 puffs Documented by: [id number] Admin: 06/05/20 08:31 Dose: 1 puffs Documented by: [id number] Admin: 06/04/20 08:03 Dose: 1 puffs Documented by: [id number] Admin: 06/03/20 08:21 Dose: 1 puffs Documented by: [id number]
[2020-06-11] MEDS: ATORVASTATIN 40 MG TAB PO SCH (19:52)
[2020-06-11 20:08] LABS: Hematocrit (blood only) 33.9 % (37-47)
[2020-06-11] MEDS: BIMATOPROST 0.01% OP SOLN 2.5 ML BTL OP SCH (20:08)
[2020-06-11] MEDS ORDERED: KETOROLAC TROMETHAMINE 15 MG/ML VIAL IV ONE (22:08)
[2020-06-11] MEDS ORDERED: TRAMADOL HCL 50 MG TABLET PO PRN (22:08)
[2020-06-11 22:28] LABS: Hematocrit (blood only) 29.2 % (37-47); Hemoglobin 9.1 g/dL (12.0-16.0)
--- NOTE | 2020-06-11 23:26 | Communication Note ---
Date of Service: June 11, 2020 Notified by RN of large bloody BM with worsening abdominal pain. CT abdomen pelvis initial read: Colonic diverticulosis. Proximal sigmoid colon showing wall thickening consistent with diverticulitis. No evidence of abscess or extraluminal air. AP LGIB Diverticulitis, currently on Augmentin Hemoglobin currently stable at 9 Rule out C. difficile Clear liquids for now Hold Augmentin Ceftriaxone, Flagyl Stool C. difficile Will relay to AM provider.
[2020-06-11] MEDS: cefTRIAXone SODIUM 2,000 MG in DEXTROSE 5% 50 ML IV SCH (23:43)
[2020-06-12] MEDS: metroNIDAZOLE 500 MG/100 ML BAG IV SCH ×3 (01:27→16:43)
[2020-06-12] MEDS ORDERED: MoRPHine SULFATE 4 MG/ML 1 ML CARP\\VIAL IV PRN (02:00)
[2020-06-12] MEDS ORDERED: KETOROLAC TROMETHAMINE 15 MG/ML VIAL IV ONE (02:00)
[2020-06-12] MEDS: ALBUTEROL HFA 8 GM INHALER INH SCH ×4 (07:12→19:19)
[2020-06-12] MEDS: IPRATROPIUM BROMIDE HFA INHALER INH SCH ×4 (07:12→19:18)
[2020-06-12 07:34] LABS: Hematocrit (blood only) 28.8 % (37-47); Hemoglobin 8.7 g/dL (12.0-16.0); Mean Corpuscular Hemoglobin 27.5 pg (25-34); Mean Corpuscular Hgb Conc 30.2 g/dL (32-36); Mean Corpuscular Volume 91.1 fL (80-100); Mean Platelet Volume 9.3 fL (7.4-10.4); Platelet Count 354 K/uL (130-400); RDW Coefficient of Variation 13.9 % (11.5-14.5); Red Blood Count 3.16 M/uL (4.2-5.4)
[2020-06-12] MEDS: PANTOprazole 40 MG TAB PO SCH ×2 (07:37→20:32)
[2020-06-12] MEDS: FERROUS SULFATE 325 MG TAB PO SCH (07:37)
[2020-06-12] MEDS: DICYCLOMINE HCL 10 MG CAP PO SCH ×2 (07:37→20:32)
[2020-06-12] MEDS: BRINZOLAMIDE (AZOPT) OPS 10 ML BTL OP SCH ×2 (07:37→20:32)
[2020-06-12] MEDS: POLYETHYLENE (MIRALAX) 17 GM PACK PO SCH (07:38)
[2020-06-12] MEDS: UMECLIDINIUM BROMIDE 62.5MCG/BLISTER 7 PUFFS/INHALER INH SCH (07:38)
[2020-06-12] MEDS: ONDANSETRON 4 MG OD TAB PO PRN ×2 (07:46→19:06)
--- NOTE | 2020-06-12 08:03 | CT Scan Report ---
CT OF THE ABDOMEN AND PELVIS WITHOUT CONTRAST CLINICAL HISTORY: Worsening abdominal pain. GI bleed. COMPARISON STUDY: CT of the abdomen and pelvis June 02, 2020. TECHNIQUE: Axial images of the abdomen and pelvis were obtained without IV contrast. Images were revi ewed in the axial, sagittal, and coronal planes. Automated exposure control was utilized for the jamari dy. A dose lowering technique was utilized adhering to the principles of ALARA. FINDINGS: No pneumatosis, free air or portal venous gas is present. Evaluation of the abdomen and pel vis is suboptimal on this unenhanced exam. The liver, right adrenal gland, spleen and pancreas are un remarkable. A left adrenal nodule is unchanged from earlier exams. This represents an adenoma. There is a cyst within the upper pole the right kidney, better depicted on prior contrast enhanced exam. Co lonic diverticulosis is noted. There is persistent wall thickening of the proximal sigmoid colon with mild adjacent infiltration. 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 There is no abscess. There is no free air. N o suspicious osseous lesions are noted. IMPRESSION: Colonic diverticulosis with persistent wall thickening of proximal sigmoid colon and mil d adjacent infiltration consistent with acute diverticulitis. If not recently performed, a follow-up nonemergent colonoscopy is recommended to exclude the less likely possibility of an underlying mass. 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 ACT 112: Negative or not required by law. Electronically signed by: Shadi Ravi M.D. 06/12/2020 8:01 AM
[2020-06-12 08:06] LABS: BUN Creatinine Ratio 18.7 (10-20); Calcium 9.2 mg/dl (8.5-10.1); Creatinine Clr Calc Pharmacy 52.3 ml/min; Est GFR (African American) 59.7; Est GFR (Non-African American) 51.5
[2020-06-12] MEDS: INSULIN ASPART 100 UNITS/ML 3 ML PEN SC SCH ×4 (08:35→20:17)
[2020-06-12] MEDS: HYDROCODONE/ACETAMOPHEN 5/325MG TAB PO PRN ×2 (08:40→20:31)
--- NOTE | 2020-06-12 10:15 | Hospitalist Progress Note ---
Date of Service June 12, 2020 Assessment & Plan (1) Diverticulitis: Cont Rocephin and Flagyl switched last night. Still with some pain and TTP in LLQ area. She has had this recur many times in the past and reports that nausea is a significant side effect for her. With a h/o large diverticular bleed in the past and some hematochezia over the weekend, which has now stopped, sent for tagged RBC scan per GI team, which was negative. Cont supportive care and abx (2) Diabetes mellitus, type 2: -Hgb A1c 7.0 02/2020 -Hold oral agents and utilize NovoLog per protocol while hospitalized, at goal. (3) Paroxysmal atrial fibrillation: -On diltiazem for rate control, will continue -Not anticoagulated due to history of GI bleeding. S/p watchman procedure (4) Chronic diastolic CHF (congestive heart failure): -Patient appears euvolemic -Hold furosemide due to acute illness -No evidence of fluid overload (5) COPD (chronic obstructive pulmonary disease): -Appears stable, no signs of acute exacerbation -Saturating well on chronic 2 L of oxygen -Continue home inhalers (6) Acute blood loss anemia: Not at level to receive a transfusion, but watching her closely. Hematochezia appears to have stopped but would receheck levels overnight if bleeding kicks off again. (7) DVT prophylaxis: -SCDs due to history of GI bleeding and current diverticulitis Full Code Dispo-to home (lives alone) once she is feeling better and nausea is better managed. Ruby Begum [facility] and Anticipated Discharge Date Admission Date: June 02, 2020 Subjective Pt feels slightly better this aftenoon +nausea but controlled with antiemetics +abdominal pain about the same with some slight improvement +tolerating PO Review of Systems Review of Systems: All systems reviewed & are unremarkable except as noted in Subjective Physical Exam Physical Exam: CONSTITUTIONAL: obese, vitals as above, generally well- appearing moreso than yesterday EYES: normal conjunctivae, no scleral icterus ENT: external ear and nose normal, oropharynx clear, MMM NECK: trachea midline RESPIRATORY: clear to auscultation bilaterally, no crackles, rales or wheezes, normal respiratory effort CARDIOVASCULAR: regular rate and rhythm, S1 and 2 heard without murmurs, gallops or rubs, no JVD, no peripheral edema CHEST: inspection of chest was normal GASTROINTESTINAL: normal bowel sounds, soft, TTP in LLQ region-improved from yesterday, less swollen, nondistended MUSCULOSKELETAL: strength 5/5 throughout, head is normocephalic and atraumatic, neck supple, normal palpation of chest wall without tenderness SKIN: warm and dry NEUROLOGIC: No facial palsy, no dysarthria. CN 2-12 grossly intact, no sensory deficit, normal cognition, normal speech, no gross focal deficits. PSYCHIATRIC: alert cooperative and oriented to person, place and time. Results & Data Results & Data ([facility]) Vital Signs (Past 12 Hours) Vital Signs Temp Pulse Resp BP Pulse Ox 06/12/20 07:12 76 20 96 06/12/20 07:09 36.4 C L 67 20 93/55 L 97 06/12/20 00:08 36.7 C 82 20 109/68 95 Laboratory Results Short CBC 06/11/20 06/11/20 06/11/20 Range/Units 15:02 19:41 22:20 WBC 9.86 (4.8-10.8) K/uL Hgb 9.0 L 10.0 L 9.1 L (12.0-16.0) g/dL Hct 29.7 L 33.9 L 29.2 L (37-47) % Plt Count 347 (130-400) K/uL 06/12/20 Range/Units 07:14 WBC 11.00 H (4.8-10.8) K/uL Hgb 8.7 L (12.0-16.0) g/dL Hct 28.8 L (37-47) % Plt Count 354 (130-400) K/uL BMP 06/12/20 07:14 Sodium 141 Potassium 4.0 Chloride 105 Carbon Dioxide 31 BUN 19 H Creatinine 1.02 Glucose 123 H Calcium 9.[address] OF THE ABDOMEN AND PELVIS WITHOUT CONTRAST CLINICAL HISTORY: Worsening abdominal pain. GI bleed. FINDINGS: No pneumatosis, free air or portal venous gas is present. Evaluation of the abdomen and pelvis is suboptimal on this unenhanced exam. The liver, right adrenal gland, spleen and pancreas are unremarkable. A left adrenal nodule is unchanged from earlier exams. This represents an adenoma. There is a cyst within the upper pole the right kidney, better depicted on prior contrast enhanced exam. Colonic diverticulosis is noted. There is persistent wall thickening of the proximal sigmoid colon with mild adjacent infiltration. 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 There is no abscess. There is no f ree air. No suspicious osseous lesions are noted. IMPRESSION: Colonic diverticulosis with persistent wall thickening of proximal sigmoid colon and mild adjacent infiltration consistent with acute di verticulitis. If not recently performed, a follow-up nonemergent colonoscopy is recommended to exclude the less likely possibility of an underlying mass. 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 Medications Administered Current Inpatient Medications Acetaminophen (Acetaminophen 325 Mg Tab) 650 mg PO Q4H PRN PRN Reason: pain/fever Stop: 07/02/20 17:09 Hydrocodone Bitart/Acetaminophen (Hydrocodone/Acetamophen 5/325mg Tab) 1 tab PO QID PRN PRN Reason: Pain Stop: 06/16/20 17:14 Last Admin: 06/12/20 08:40 Dose: 1 tab Documented by: Al Hydrox/Mg Hydrox/Simethicone (Aluminum/Magnesium/Simeth (Maalox Max) 30 Ml Udc) 30 ml PO Q6H PRN PRN Reason: Dyspepsia Stop: 07/05/20 15:42 Last Admin: 06/09/20 12:17 Dose: 30 ml Documented by: Albuterol (Albuterol Hfa 8 Gm Inhaler) 1 puffs INH QIDR [facility] Stop: 07/02/20 20:29 Last Admin: 06/12/20 07:12 Dose: 1 puffs Documented by: Amoxicillin/Clavulanate Potassium (Amoxicillin/Clavulanate 875 Mg Tab) 1 tab PO BIDM [facility] Stop: 06/16/20 16:59 Last Admin: 06/11/20 17:06 Dose: 1 tab Documented by: Aspirin (Aspirin 81 Mg Ectab) 81 mg PO QAM [facility] Stop: 07/03/20 08:59 Last Admin: 06/10/20 08:30 Dose: 81 mg Documented by: Atorvastatin Calcium (Atorvastatin 40 Mg Tab) 40 mg PO HS [facility] Stop: 07/02/20 20:59 Last Admin: 06/11/20 19:52 Dose: 40 mg Documented by: Bimatoprost (Bimatoprost 0.01% Op Soln 2.5 Ml Btl) 1 drops OP HS [facility] Stop: 07/02/20 20:59 Last Admin: 06/11/20 20:08 Dose: 1 drops Documented by: Brinzolamide (Brinzolamide (Azopt) Ops 10 Ml Btl) 1 drops OP BID [facility] Stop: 07/02/20 20:59 Last Admin: 06/12/20 07:37 Dose: 1 drops Documented by: Dextrose (Dextrose 50% 50 Ml Syringe) 25 - 50 ml IV UD PRN; Protocol PRN Reason: Hypoglycemia Protocol Stop: 07/02/20 21:44 Dicyclomine HCl (Dicyclomine Hcl 10 Mg Cap) 10 mg PO BID [facility] Stop: 07/07/20 20:59 Last Admin: 06/12/20 07:37 Dose: 10 mg Documented by: Diltiazem HCl (Diltiazem Hcl 180 Mg Capcr) 360 mg PO QAM [facility] Stop: 07/03/20 08:59 Last Admin: 06/10/20 08:30 Dose: 360 mg Documented by: Ferrous Sulfate (Ferrous Sulfate 325 Mg Tab) 325 mg PO QAM [facility] Stop: 07/03/20 08:59 Last Admin: 06/12/20 07:37 Dose: 325 mg Documented by: Furosemide (Furosemide 40 Mg Tab) 40 mg PO QAM [facility] Stop: 07/09/20 13:29 Last Admin: 06/10/20 08:30 Dose: 40 mg Documented by: Glucagon (Glucagon For Inj 1 Mg Vial) 1 mg IM UD PRN; Protocol PRN Reason: Hypoglycemia Protocol Stop: 07/02/20 21:44 Glucose (Glucose 40% Gel 15 Gm Tube) 15 - 30 gm PO UD PRN; Protocol PRN Reason: Hypoglycemia Protocol Stop: 07/02/20 21:44 Glucose (Glucose 10 Tabs/Tube) 4 - 8 tabs PO UD PRN; Protocol PRN Reason: Hypoglycemia Protocol Stop: 07/02/20 21:44 Glycerin (Glycerin Adult 12 Supp/Box Supp) 1 supp AR DAILY PRN PRN Reason: Constipation Stop: 07/09/20 13:31 Metronidazole (Flagyl) 500 mg in 100 mls @ 100 mls/hr IV Q8H [facility] Stop: 06/22/20 00:00 Last Infusion: 06/12/20 08:44 Dose: Infused Documented by: Ceftriaxone Sodium 2,000 mg/ (Dextrose) 70 mls @ 100 mls/hr IV Q24H [facility]; Protocol Stop: 06/22/20 00:00 Last Infusion: 06/12/20 01:28 Dose: Infused Documented by: Insulin Aspart (Insulin Aspart 100 Units/Ml 3 Ml Pen) 0 units SC ACHS [facility] Stop: 07/03/20 07:29 Last Admin: 06/12/20 08:35 Dose: Not Given Documented by: Ipratropium Charlotte (Ipratropium Charlotte Hfa Inhaler) 1 puffs INH QIDR [facility] Stop: 07/02/20 20:29 Last Admin: 06/12/20 07:12 Dose: 1 puffs Documented by: Miscellaneous (Zafirlukast 20 Mg Order Awaiting Action) 1 ea N/A QS [facility] Stop: 07/03/20 00:00 Last Admin: 06/12/20 07:32 Dose: Not Given Documented by: Miscellaneous (Carbohydrates For Hypoglycemia ) 15 - 30 gm PO UD PRN PRN Reason: Hypoglycemia Treatment Stop: 07/02/20 21:44 Morphine Sulfate (Morphine Sulfate 4 Mg/Ml 1 Ml Carp\Vial) 4 mg IV Q4H PRN PRN Reason: Pain Stop: 06/26/20 01:59 Ondansetron HCl (Ondansetron 4 Mg Od Tab) 4 mg PO Q8H PRN PRN Reason: nausea/vomiting Stop: 07/10/20 08:57 Last Admin: 06/12/20 07:46 Dose: 4 mg Documented by: Pantoprazole Sodium (Pantoprazole 40 Mg Tab) 40 mg PO BID [facility]; Protocol Stop: 07/02/20 20:59 Last Admin: 06/12/20 07:37 Dose: 40 mg Documented by: Polyethylene Glycol (Polyethylene (Miralax) 17 Gm Pack) 17 gm PO DAILY [facility] Stop: 07/04/20 13:59 Last Admin: 06/12/20 07:38 Dose: Not Given Documented by: Polyethylene Glycol (Polyethylene (Miralax) 17 Gm Pack) 17 gm PO TID PRN PRN Reason: Constipation Stop: 07/03/20 10:41 Promethazine HCl (Promethazine Hcl 25 Mg Tab) 25 mg PO Q6H PRN PRN Reason: Nausea And Vomiting Stop: 07/10/20 04:47 Last Admin: 06/11/20 21:18 Dose: 25 mg Documented by: Umeclidinium [place] (Umeclidinium [place] 62.5mcg/Blister 7 Puffs/Inhaler) [facility] [place]: 07/03/20 08:59 Last Admin: 06/12/20 07:38 Dose: 1 puffs Documented by:
--- NOTE | 2020-06-12 12:37 | Gastroenterology Progress Note ---
Date of Service June 12, 2020 Assessment & Plan (1) Diverticulitis: (2) Nausea: Ms. Harrington is an 79 y/o female with recurrent diverticulitis. She has nausea but tells us that this is her typical symptoms of diverticulitis. - Recommend surgical consult. - For nausea would continue/alternate: zofran, phenergan, repeat Emend. - Will consider trying emycin for tx of gastroparesis tomorrow if still with nausea and above not effective. - Will review results of stool for C-diff when available. (3) Diverticular hemorrhage: GI bleeding scan. If active bleeding consider transfer for interventional radiology treatment. Will continue to follow. Present on Admission?: Yes Admission and Anticipated Discharge Date Admission Date: June 02, 2020 Supervising Physician Co-Signing Physician Notes Patient admitted with recurrent diverticulitis (last colonscopy in April after a prior episode). Unfortunatly she has had minimal improvment despite changes in her abx coverage. Recomendations: stool culture c diff pcr continue abx coverage tagged rbc study should significant bleeding occur consider a General surgery consult (would patient benefit from sigmoid or left colectomy) Subjective Ms. Nina Harrington is an 79-year-old female admitted last week for diverticulitis. GI is following for diverticulitis as well as rectal bleeding that occurred on Friday night and last night. Hemoglobin is dropped from 11->8 and she recieved one unit RBCs. This morning, she is awake alert and oriented, afebrile without leukocytosis and she tells us that she continues with left lower quadrant abdominal pain though is much better when she is given pain medication. She continues with some nausea as well. She is able to tolerate a clear liquid diet. Review of Systems Review of Systems: ROS: Gen: Denies weakness, fevers, weight loss Eyes: No eye redness, or pain, no recent vision changes Resp: No SOB, no cough Cardio: No palpitations/irregular beats, no chest pain GI: As per HPI : Denies pain on urination Skin: No jaundice, itching or new rashes Physical Exam Constitutional: WD/WN, vitals as above + obese Eyes: PERRL, conjunctivae normal, anicteric sclerae ENMT: external ear and nose normal, oropharynx normal Neck: trachea midline, no thyromegaly Respiratory: normal respiratory effort, lungs clear to auscultation Cardiovascular: RRR, no murmur, no edema Gastrointestinal (Abdomen): Inspection/Auscultation: abdomen normal to inspection and normal bowel sounds Percussion/Palpation: + abdomen tender (LLQ w/o rebound or guarding) and abdomen soft Skin: no rashes, warm and dry Neurologic: PERRL, EOMI, accommodation nl, no face palsy, no dysarthria Psychiatric: A+Ox3, euthymic affect Lymphatic: no cervical or axillary lymphadenopathy Results & Data ([facility]) Vital Signs (Past 12 Hours) Vital Signs Temp Pulse Resp BP Pulse Ox 06/12/20 11:10 69 16 97 06/12/20 07:12 76 20 96 06/12/20 07:09 36.4 C L 67 20 93/55 L 97
[2020-06-12] MEDS: PROMETHAZINE HCL 25 MG TAB PO PRN ×2 (12:42→23:09)
--- NOTE | 2020-06-12 16:22 | Nuclear Medicine Report ---
NM GI bleeding CLINICAL HISTORY: rectal bleeding COMPARISON STUDY: Noncontrast CT scan dated 06/11/2020 TECHNIQUE: Following the IV administration of 23.2 mCi of technetium 99m UltraTag labeled red blood c ells, nuclear bleeding scan was performed. Anterior flow images were obtained every 2 seconds for a t otal 48 seconds. Anterior static images were obtained every 5 minutes for a total of 60 minutes. FINDINGS: No pathologic extravascular activity is visualized. Very faint activity with within the lo wer pelvis, likely represents minimal bladder activity secondary to excretion of free pertechnetate IMPRESSION: No scintigraphic evidence of active GI bleeding. ACT 112: Negative or not required by law. Electronically signed by: Gonzalo Lyon M.D. 06/12/2020 4:20 PM
[2020-06-12] MEDS: ATORVASTATIN 40 MG TAB PO SCH (20:32)
[2020-06-12] MEDS: BIMATOPROST 0.01% OP SOLN 2.5 ML BTL OP SCH (20:33)
[2020-06-13] MEDS: cefTRIAXone SODIUM 2,000 MG in DEXTROSE 5% 50 ML IV SCH (00:23)
[2020-06-13] MEDS: metroNIDAZOLE 500 MG/100 ML BAG IV SCH ×2 (00:23→08:24)
[2020-06-13] MEDS: ONDANSETRON 4 MG OD TAB PO PRN ×3 (04:09→21:06)
[2020-06-13] MEDS: ALBUTEROL HFA 8 GM INHALER INH SCH ×4 (07:08→19:27)
[2020-06-13] MEDS: IPRATROPIUM BROMIDE HFA INHALER INH SCH ×4 (07:09→19:27)
[2020-06-13 07:58] LABS: Hemoglobin 8.2 g/dL (12.0-16.0); Mean Corpuscular Hemoglobin 27.5 pg (25-34); Mean Corpuscular Hgb Conc 30.4 g/dL (32-36); Mean Corpuscular Volume 90.6 fL (80-100); Mean Platelet Volume 9.3 fL (7.4-10.4); Platelet Count 351 K/uL (130-400); RDW Coefficient of Variation 13.9 % (11.5-14.5); RDW Standard Deviation 45.5 fL (36.4-46.3); Red Blood Count 2.98 M/uL (4.2-5.4); White Blood Count 9.84 K/uL (4.8-10.8)
[2020-06-13] MEDS: DICYCLOMINE HCL 10 MG CAP PO SCH ×2 (08:23→21:01)
[2020-06-13] MEDS: PANTOprazole 40 MG TAB PO SCH ×2 (08:23→21:00)
[2020-06-13] MEDS: FERROUS SULFATE 325 MG TAB PO SCH (08:23)
[2020-06-13] MEDS: POLYETHYLENE (MIRALAX) 17 GM PACK PO SCH (08:24)
[2020-06-13] MEDS: UMECLIDINIUM BROMIDE 62.5MCG/BLISTER 7 PUFFS/INHALER INH SCH (08:24)
[2020-06-13] MEDS: BRINZOLAMIDE (AZOPT) OPS 10 ML BTL OP SCH ×2 (08:25→20:57)
[2020-06-13] MEDS: HYDROCODONE/ACETAMOPHEN 5/325MG TAB PO PRN ×3 (08:32→22:12)
[2020-06-13] MEDS: INSULIN ASPART 100 UNITS/ML 3 ML PEN SC SCH ×4 (08:34→20:58)
[2020-06-13 08:45] LABS: Calcium 8.8 mg/dl (8.5-10.1); Creatinine Clr Calc Pharmacy 69.3 ml/min; Est GFR (African American) 83.9; Est GFR (Non-African American) 72.4; Potassium 3.8 mmol/L (3.5-5.1)
[2020-06-13] MEDS: PROMETHAZINE HCL 25 MG TAB PO PRN (09:53)
--- NOTE | 2020-06-13 10:16 | Gastroenterology Progress Note ---
Date of Service June 13, 2020 Assessment & Plan (1) Diverticulitis: Only slight improvement in pain of diverticulitis. Nausea may be related to diverticulitis but because it preceded diverticulitis and pt has known gastroparesis, would assume the gastroparesis is contributing. 1. Consult general surgery. 2. Trial of erythromycin 250mg achs. 3. If no improvement in nausea with emycin then will consider a repeat dose of Emend tomorrow. 4. Continue on liquid diet. 5. Continue antibiotics. Consider ID consult because not significantly improving. 6. Continue dicyclomine. Present on Admission?: Yes (2) Diverticular hemorrhage: Diverticular bleeding seems to be slowing. Bleeding study (-). Appreciate Primary hospitalists managment of fluids/blood products if needed. Admission and Anticipated Discharge Date Admission Date: June 02, 2020 Supervising Physician Co-Signing Physician Notes I saw and evaluated the patient. She has been admitted for some time due to recurrent diverticulitis and does not seem to be improving significantly at this point. Given this localization to the left lower quadrant perhaps she would be best served with a general [facility] evaluation. Another consideration would be to obtain an infectious disease consultation to determine the best course of therapy for her diverticulitis. Subjective 79 yr female admitted on 06/[address] prior to admission with diverticulitis. Was on Cipro/Flagyl at the time of admission. Antibiotics changed since then. Pain continues but over slightly improved. Main problem is nausea which preceded the pain - beginning about 3 weeks ago. Tolerating clear liquids. Large rectal bleeding on 06/10, , moderate amt 06/12, now slowed: two brown BMs semi formed and will a small amt of dark red blood since yesterday. Previously: ondansetron, Phenergan not effective for nausea. Emend helped slightly for a day. Review of Systems Review of Systems: ROS: Gen: Denies weakness, fevers, weight loss Eyes: No eye redness, or pain, no recent vision changes Resp: No SOB, no cough Cardio: No palpitations/irregular beats, no chest pain GI: See HPI : Denies pain on urination Skin: No jaundice, itching or new rashes Physical Exam Constitutional: WD/WN, vitals as above + obese Eyes: PERRL, conjunctivae normal, anicteric sclerae ENMT: external ear and nose normal, oropharynx normal Neck: trachea midline, no thyromegaly Respiratory: normal respiratory effort, lungs clear to auscultation Cardiovascular: RRR, no murmur, no edema Gastrointestinal (Abdomen): Inspection/Auscultation: abdomen normal to inspection and normal bowel sounds Percussion/Palpation: + abdomen tender (LLQ w/o rebound or guarding) and abdomen soft Skin: no rashes, warm and dry Neurologic: PERRL, EOMI, accommodation nl, no face palsy, no dysarthria Psychiatric: A+Ox3, euthymic affect Lymphatic: no cervical or axillary lymphadenopathy Results & Data ([facility]) Vital Signs (Past 12 Hours) Vital Signs Temp Pulse Resp BP Pulse Ox 06/13/20 07:09 73 16 97 06/13/20 07:00 36.6 C 80 18 107/67 91 06/13/20 05:03 92 H 20 123/77 06/13/20 04:03 36.6 C 103 H 18 154/80 H 94 06/12/20 22:57 36.7 C 91 H 18 124/[address] 06/02/20 with IV/oral contrast: Redemonstration of a giant diverticulum of the proximal sigmoid colon which was present on prior exams. Mild adjacent infiltration and mild wall thickening of the proximal to mid sigmoid colon. The findings favor acute sigmoid diverticulitis. A nonspecific colitis could appear similar but is considered less likely. No free air or abscess. CT 06/11/20 without contrast: Colonic diverticulosis with persistent wall thickening of proximal sigmoid colon and mild adjacent infiltration consistent with acute diverticulitis. If not recently performed, a follow-up nonemergent colonoscopy is recommended to exclude the less likely possibility of an underlying mass. 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
[2020-06-13] MEDS: ERYTHROMYCIN DELAYED RELEASE 250 MG CAP PO SCH ×3 (11:34→21:01)
--- NOTE | 2020-06-13 11:38 | Hospitalist Progress Note ---
Date of Service June 13, 2020 Assessment & Plan (1) Nausea: Cont supportive care. Gastric emptying study planned for tomorrow. 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 Not sure if this may be contributing? Switched to solid food diet today per her request. (2) Diverticulitis: Stop abx, cont supportive care (3) Diabetes mellitus, type 2: -Hgb A1c 7.0 02/2020 -Hold oral agents and utilize NovoLog per protocol while hospitalized, at goal. (4) Paroxysmal atrial fibrillation: -On diltiazem for rate control, will continue -Not anticoagulated due to history of GI bleeding. S/p watchman procedure (5) Chronic diastolic CHF (congestive heart failure): -Patient appears euvolemic -Hold furosemide due to acute illness -No evidence of fluid overload (6) COPD (chronic obstructive pulmonary disease): -Appears stable, no signs of acute exacerbation -Saturating well on chronic 2 L of oxygen -Continue home inhalers (7) Acute blood loss anemia: Not at level to receive a transfusion, but watching her closely. He matochezia appears to have stopped but would receheck levels overnight if bleeding kicks off again. (8) DVT prophylaxis: -SCDs due to history of GI bleeding and current diverticulitis Full Code Dispo-to home (lives alone) once she is feeling better and nausea is better managed. Ruby Begum DO [facility] Hospitalist Admission and Anticipated Discharge Date Admission Date: June 02, 2020 Subjective Still having severe nausea today Reports less abdominal discomfort, but that is there on palpation of the abdomen on the LLQ. No fevers, chills or elevation in WBC cont Surgery evaluated her and discussed options regarding her diverticuli but is not connecting this to her persistent nausea Spoke with [facility] ID who recommends to stop the abx as she has had more than enough Spoke with GI team who will perform a repeat gastric emptying study Review of Systems Review of Systems: All systems reviewed & are unremarkable except as noted in Subjective Physical Exam Physical Exam: CONSTITUTIONAL: obese, vitals as above, generally well- appearing moreso than yesterday EYES: normal conjunctivae, no scleral icterus ENT: external ear and nose normal, oropharynx clear, MMM NECK: trachea midline RESPIRATORY: clear to auscultation bilaterally, no crackles, rales or wheezes, normal respiratory effort CARDIOVASCULAR: Irregular rate and rhythm, S1 and 2 heard without murmurs, gallops or rubs, no JVD, no peripheral edema CHEST: inspection of chest was normal GASTROINTESTINAL: normal bowel sounds, soft, TTP in LLQ region-improved from yesterday, less swollen, nondistended MUSCULOSKELETAL: strength 5/5 throughout, head is normocephalic and atraumatic, neck supple, normal palpation of chest wall without tenderness SKIN: warm and dry NEUROLOGIC: No facial palsy, no dysarthria. CN 2-12 grossly intact, no sensory deficit, normal cognition, normal speech, no gross focal deficits. PSYCHIATRIC: alert cooperative and oriented to person, place and time. Results & Data Results & Data ([facility]) Vital Signs (Past 12 Hours) Vital Signs Temp Pulse Resp BP Pulse Ox 06/13/20 07:09 73 16 97 06/13/20 07:00 36.6 C 80 18 107/67 91 06/13/20 05:03 92 H 20 123/77 06/13/20 04:03 36.6 C 103 H 18 154/80 H 94 Laboratory Results Short CBC 06/13/20 Range/Units 07:35 WBC 9.84 (4.8-10.8) K/uL Hgb 8.2 L (12.0-16.0) g/dL Hct 27.0 L (37-47) % Plt Count 351 (130-400) K/uL BMP 06/13/20 07:35 Sodium 144 Potassium 3.8 Chloride 110 H Carbon Dioxide 29 BUN 12 Creatinine 0.77 Glucose 108 H Calcium 8.8 Diagnostic Findings NM GI bleeding CLINICAL HISTORY: rectal bleeding COMPARISON STUDY: Noncontrast CT scan dated 06/11/2020 TECHNIQUE: Following the IV administration of 23.2 mCi of technetium 99m Ul traTag labeled red blood cells, nuclear bleeding scan was performed. Anterior flow images were obtained every 2 seconds for a total 48 seconds. Anterior static images were obtained every 5 minutes for a total of 60 minutes. FINDINGS: No pathologic extravascular activity is visualized. Very faint activity with within the lower pelvis, likely represents minimal bladder activity secondary to excretion of free pertechnetate IMPRESSION: No scintigraphic evidence of active GI bleeding. Medications Administered Current Inpatient Medications Acetaminophen (Acetaminophen 325 Mg Tab) 650 mg PO Q4H PRN PRN Reason: pain/fever Stop: 07/02/20 17:09 Hydrocodone Bitart/Acetaminophen (Hydrocodone/Acetamophen 5/325mg Tab) 1 tab PO QID PRN PRN Reason: Pain Stop: 06/16/20 17:14 Last Admin: 06/13/20 08:32 Dose: 1 tab Documented by: Al Hydrox/Mg Hydrox/Simethicone (Aluminum/Magnesium/Simeth (Maalox Max) 30 Ml Udc) 30 ml PO Q6H PRN PRN Reason: Dyspepsia Stop: 07/05/20 15:42 Last Admin: 06/09/20 12:17 Dose: 30 ml Documented by: Albuterol (Albuterol Hfa 8 Gm Inhaler) 1 puffs INH QIDR [facility] Stop: 07/02/20 20:29 Last Admin: 06/13/20 11:02 Dose: 1 puffs Documented by: Amoxicillin/Clavulanate Potassium (Amoxicillin/Clavulanate 875 Mg Tab) 1 tab PO BIDM [facility] Stop: 06/16/20 16:59 Last Admin: 06/11/20 17:06 Dose: 1 tab Documented by: Aspirin (Aspirin 81 Mg Ectab) 81 mg PO QAM [facility] Stop: 07/03/20 08:59 Last Admin: 06/10/20 08:30 Dose: 81 mg Documented by: Atorvastatin Calcium (Atorvastatin 40 Mg Tab) 40 mg PO HS [facility] Stop: 07/02/20 20:59 Last Admin: 06/12/20 20:32 Dose: 40 mg Documented by: Bimatoprost (Bimatoprost 0.01% Op Soln 2.5 Ml Btl) 1 drops OP HS [facility] Stop: 07/02/20 20:59 Last Admin: 06/12/20 20:33 Dose: 1 drops Documented by: Brinzolamide (Brinzolamide (Azopt) Ops 10 Ml Btl) 1 drops OP BID [facility] Stop: 07/02/20 20:59 Last Admin: 06/13/20 08:25 Dose: 1 drops Documented by: Dextrose (Dextrose 50% 50 Ml Syringe) 25 - 50 ml IV UD PRN; Protocol PRN Reason: Hypoglycemia Protocol Stop: 07/02/20 21:44 Dicyclomine HCl (Dicyclomine Hcl 10 Mg Cap) 10 mg PO BID [facility] Stop: 07/07/20 20:59 Last Admin: 06/13/20 08:23 Dose: 10 mg Documented by: Diltiazem HCl (Diltiazem Hcl 180 Mg Capcr) 360 mg PO [facility] Stop: 07/03/20 08:59 Last Admin: 06/10/20 08:30 Dose: 360 mg Documented by: Erythromycin (Erythromycin Delayed Release 250 Mg Cap) 250 mg PO [facility]; Protocol Stop: 06/23/20 11:29 Last Admin: 06/13/20 11:34 Dose: 250 mg Documented by: Ferrous Sulfate (Ferrous Sulfate 325 Mg Tab) [facility] Stop: 07/03/20 08:59 Last Admin: 06/13/20 08:23 Dose: 325 mg Documented by: Furosemide (Furosemide 40 Mg Tab) 40 mg PO [facility] Stop: 07/09/20 13:29 Last Admin: 06/10/20 08:30 Dose: 40 mg Documented by: Glucagon (Glucagon For Inj 1 Mg Vial) 1 mg IM UD PRN; Protocol PRN Reason: Hypoglycemia Protocol Stop: 07/02/20 21:44 Glucose (Glucose 40% Gel 15 Gm Tube) 15 - 30 gm PO UD PRN; Protocol PRN Reason: Hypoglycemia Protocol Stop: 07/02/20 21:44 Glucose (Glucose 10 Tabs/Tube) 4 - 8 tabs PO UD PRN; Protocol PRN Reason: Hypoglycemia Protocol Stop: 07/02/20 21:44 Glycerin (Glycerin Adult 12 Supp/Box Supp) 1 supp MO DAILY PRN PRN Reason: Constipation Stop: 07/09/20 13:31 Metronidazole (Flagyl) 500 mg in 100 mls @ 100 mls/hr IV Q8H [facility] Stop: 06/22/20 00:00 Last Infusion: 06/13/20 09:28 Dose: Infused Documented by: Ceftriaxone Sodium 2,000 mg/ (Dextrose) 70 mls @ 100 mls/hr IV Q24H [facility]; Protocol Stop: 06/22/20 00:00 Last Infusion: 06/13/20 02:13 Dose: Infused Documented by: Insulin Aspart (Insulin Aspart 100 Units/Ml 3 Ml Pen) 0 units SC [facility] Stop: 07/03/20 07:29 Last Admin: 06/13/20 08:34 Dose: 1 units Documented by: Ipratropium [place] (Ipratropium [place] Hfa Inhaler) 1 puffs INH QIDR [facility] Stop: 07/02/20 20:29 Last Admin: 06/13/20 11:02 Dose: 1 puffs Documented by: Miscellaneous (Carbohydrates For Hypoglycemia ) 15 - 30 gm PO UD PRN PRN Reason: Hypoglycemia Treatment Stop: 07/02/20 21:44 Morphine Sulfate (Morphine Sulfate 4 Mg/Ml 1 Ml Carp\Vial) 4 mg IV Q4H PRN PRN Reason: Pain Stop: 06/26/20 01:59 Ondansetron HCl (Ondansetron 4 Mg Od Tab) 4 mg PO Q8H PRN PRN Reason: nausea/vomiting Stop: 07/10/20 08:57 Last Admin: 06/13/20 08:20 Dose: 4 mg Documented by: Pantoprazole Sodium (Pantoprazole 40 Mg Tab) 40 mg PO BID [facility]; Protocol Stop: 07/02/20 20:59 Last Admin: 06/13/20 08:23 Dose: 40 mg Documented by: Polyethylene Glycol (Polyethylene (Miralax) 17 Gm Pack) 17 gm PO DAILY [facility] Stop: 07/04/20 13:59 Last Admin: 06/13/20 08:24 Dose: Not Given Documented by: Polyethylene Glycol (Polyethylene (Miralax) 17 Gm Pack) 17 gm PO TID PRN PRN Reason: Constipation Stop: 07/03/20 10:41 Promethazine HCl (Promethazine Hcl 25 Mg Tab) 25 mg PO Q6H PRN PRN Reason: Nausea And Vomiting Stop: 07/10/20 04:47 Last Admin: 06/13/20 09:53 Dose: 25 mg Documented by: Umeclidinium [place] (Umeclidinium [place] 62.5mcg/Blister 7 Puffs/Inhaler) 1 puffs INH QAM [facility] Stop: 07/03/20 08:59 Last Admin: 06/13/20 08:24 Dose: 1 puffs Documented by:
[2020-06-13] MEDS: ALUMINUM/MAGNESIUM/SIMETH (MAALOX MAX) 30 ML UDC PO PRN (12:26)
[2020-06-13] MEDS ORDERED: SODIUM CHLORIDE 0.9% 1000ML 1,000 ML IV SCH (13:00)
[2020-06-13 14:21] LABS: Hematocrit (blood only) 26.7 % (37-47)
--- NOTE | 2020-06-13 15:42 | Surgery Consultation ---
Date of Consultation June 13, 2020 Assessment & Plan (1) Diverticulitis: The patient presented with a predominant complaint of nausea. One time she had some small amount of abdominal pain but that is resolved. The CAT scan shows minimal to mild findings of diverticulitis. She was placed on oral Augmentin. Repeat CT still showed inflammatory change although the CT findings will lag behind the clinical course. She was recently placed on IV antibiotics. The diverticulitis I think is highly unlikely to be the etiology of her persistent chronic nausea. Another etiology should be sought. I have seen her in the office in the past for discussion of elective surgery. She has diver ticuli throughout her colon. Performing a sigmoid colectomy may not be feasible due to the density of her diverticuli. She may require a more extensive colectomy. She is unsure as to whether or not that is something that she would like to entertain. History of Present Illness Reason for Consultation: Diverticulitis Requesting Physician: Ruby Begum DO Attending Physician: Ruby Begum DO History of Present Illness I have been asked by Dr. Begum to see this 79-year-old female who presented to the emergency room with intractable nausea. Nausea began about a month ago. It has persisted. She has been able to eat however. She had no vomiting. Work-up has been undergoing. She underwent a CT scan of the abdomen and pelvis that demonstrated evidence of mild inflammatory change surrounding a small portion of the sigmoid colon consistent with diverticulitis. She has had 2-3 episodes of this in the past. She did not present with pain. She developed a small amount of discomfort about 2 to 3 days ago but that is resolved. She developed rectal bleeding. She continues to have a small amount of blood with bowel movements. There was no bleeding site identified on bleeding scintigraphy. She underwent a colonoscopy and an EGD recently. Colonoscopy demonstrated diverticulosis. Allergies Allergy/AdvReac Type Severity Reaction Status Date / Time salmon oil Allergy Severe HIVES-REDDENED Verified 06/02/20 12:33 ALL OVER Iodinated Contrast Media Allergy Intermediate HIVES-GI Verified 06/02/20 12:33 SYMPTOMS lisinopril Allergy Intermediate FAST HEART Verified 06/02/20 12:33 BEAT valsartan Allergy Intermediate FAST HEART Verified 06/02/20 12:33 BEAT bupropion AdvReac Mild GI SYMPTOMS Verified 06/02/20 12:33 enalapril AdvReac Mild GI SYMPTOMS Verified 06/02/20 12:33 escitalopram AdvReac Mild GI SYMPTOMS Verified 06/02/20 12:33 metoprolol AdvReac Mild LOWERS Verified 06/02/20 12:33 PULSE RATE verapamil AdvReac Mild GI UPSET, Verified 06/02/20 12:33 fast heart rate Home Medications Home Medications Medication Instructions Recorded Confirmed Type atorvastatin 40 mg PO HS 06/23/19 06/02/20 History cholecalciferol (vitamin D3) 1,000 unit PO QAM 06/23/19 06/02/20 History [Vitamin D3] dicyclomine 20 mg PO QAM 06/23/19 06/02/20 History diltiazem HCl 360 mg PO QAM 06/23/19 06/02/20 History docusate sodium 100 mg PO QAM 06/23/19 06/02/20 History hydrocodone-acetaminophen 1 tab PO QID PRN 06/23/19 06/02/20 History omeprazole 20 mg PO BID 06/23/19 06/02/20 History zafirlukast 20 mg PO QAM 06/23/19 06/02/20 History Azopt 1 drp OPHTHALMIC (EYE) BID 09/25/19 06/02/20 History Combivent Respimat 1 puff INHALATION QID 09/25/19 06/02/20 History Lumigan 1 drp OPB HS 09/25/19 06/02/20 History albuterol sulfate 2.5 mg INHALATION BID PRN 09/25/19 06/02/20 History albuterol sulfate [Ventolin HFA] 2 puff INHALATION QID PRN 09/25/19 06/02/20 History polyethylene glycol 3350 [Miralax] 17 g PO BID PRN 09/25/19 06/02/20 History Oxygen Home #1 ea 01/14/20 04/10/20 History aspirin 81 mg tablet,delayed 81 mg PO QAM 01/14/20 06/02/20 History release potassium chloride 20 mEq 20 meq PO DAILY 01/14/20 06/02/20 History tablet,extended release(part/cryst) ferrous sulfate 325 mg (65 mg 325 mg PO QAM tab 02/23/20 06/02/20 History iron) tablet furosemide 40 mg tablet 40 mg PO HS tab 02/23/20 06/02/20 History glimepiride 4 mg tablet 4 mg PO QAM tab 02/23/20 06/02/20 History ondansetron HCl 8 mg tablet 8 mg PO Q8H PRN 02/23/20 06/02/20 History umeclidinium 62.5 mcg/actuation 1 puffs INH QAM 04/10/20 06/02/20 History blister powder for inhalation multivitamin [Multiple Vitamin] 1 tab PO DAILY 06/02/20 06/02/20 History Patient History Medical History Asthma Chronic diastolic CHF (congestive heart failure) COPD (chronic obstructive pulmonary disease) Diabetes mellitus, type 2 Diverticulosis Esophageal reflux Glaucoma of both eyes Hyperlipidemia Hypertension Lower GI bleed Nausea and vomiting after administration of anesthetic agent Nocturnal hypoxemia On home oxygen therapy 2L N/C at all times and 4 L N/C at night Osteoarthritis Paroxysmal atrial fibrillation Sleep apnea Surgical History H/O colonoscopy "04/2014 - diverticular disease throughout colon, internal hemorrhoids, polyp removed" History of appendectomy History of cardiac cath History of cholecystectomy History of dilatation and curettage History of esophagogastroduodenoscopy (EGD) "04/2014 - normal" History of incisional hernia repair History of tooth extraction all teeth Hx of small bowel obstruction "11/2017 - Seen [facility] - surgical intervention" Presence of Watchman left atrial appendage closure device 11/2019 @ [facility] Dr. 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 (work environment); Hx Alcohol Use: No Hx Substance Use: No Preferred Language: Slovak Communication Ability: Effective Manager Nc Required: No Beliefs That Will Affect Care: None marital status: / Current Living Situation: Alone Feels Safe at Home: Yes Safety Concerns: Feels Safe At This Time Physical Exam Constitutional: no acute distress Neck: trachea midline Respiratory: normal respiratory effort, lungs clear to auscultation Cardiovascular: Rate/Rhythm: regular rate and regular rhythm Gastrointestinal (Abdomen): normal bowel sounds, soft, nontender, no hepatosplenomegaly Lymphatic: no cervical lymphadenopathy Results & Data ([facility]) Vital Signs (Past 12 Hours) Vital Signs Temp Pulse Resp BP Pulse Ox 06/13/20 15:37 36.9 C 84 18 128/62 91 06/13/20 15:25 73 16 97 06/13/20 07:09 73 16 97 06/13/20 07:00 36.6 C 80 18 107/67 91 06/13/20 05:03 92 H 20 123/77 06/13/20 04:03 36.6 C 103 H 18 154/80 H 94 Laboratory Results 06/13/20 06/13/20 06/13/20 Range/Units 14:05 11:34 07:36 WBC (4.8-10.8) K/uL RBC (4.2-5.4) M/uL Hgb 8.0 L (12.0-16.0) g/dL Hct 26.7 L (37-47) % MCV (80-100) fL MCH (25-34) pg MCHC (32-36) g/dL RDW Std Deviation (36.4-46.3) fL RDW Coeff of Jesika (11.5-14.5) % Plt Count (130-400) K/uL MPV (7.4-10.4) fL Sodium (136-145) mmol/L Potassium (3.5-5.1) mmol/L Chloride (98-107) mmol/L Carbon Dioxide (21-32) mmol/L Anion Gap (3-11) BUN (7-18) mg/dl Creatinine (0.6-1.2) mg/dl Est Cr Clr Drug Dosing ml/min Est GFR ( Amer) Est GFR (Non-Af Amer) BUN/Creatinine Ratio (10-20) Glucose (70-99) mg/dl POC Glucose 126 H 121 H (70-99) mg/dl Calcium (8.5-10.1) mg/dl Magnesium (1.8-2.4) mg/dl Stl C. diff Tox B Gene (Neg) 06/13/20 06/13/20 06/13/20 Range/Units 07:35 07:35 00:40 WBC 9.84 (4.8-10.8) K/uL RBC 2.98 L (4.2-5.4) M/uL Hgb 8.2 L (12.0-16.0) g/dL Hct 27.0 L (37-47) % MCV 90.6 (80-100) fL MCH 27.5 (25-34) pg MCHC 30.4 L (32-36) g/dL RDW Std Deviation 45.5 (36.4-46.3) fL RDW Coeff of Jesika 13.9 (11.5-14.5) % Plt Count 351 (130-400) K/uL MPV 9.3 (7.4-10.4) fL Sodium 144 (136-145) mmol/L Potassium 3.8 (3.5-5.1) mmol/L Chloride 110 H (98-107) mmol/L Carbon Dioxide 29 (21-32) mmol/L Anion Gap 6.0 (3-11) BUN 12 (7-18) mg/dl Creatinine 0.77 (0.6-1.2) mg/dl Est Cr Clr Drug Dosing 69.3 ml/min Est GFR ( Amer) 83.9 Est GFR (Non-Af Amer) 72.4 BUN/Creatinine Ratio 16.0 (10-20) Glucose 108 H (70-99) mg/dl POC Glucose (70-99) mg/dl Calcium 8.8 (8.5-10.1) mg/dl Magnesium 2.0 (1.8-2.4) mg/dl Stl C. diff Tox B Gene Negative Cdiff Gene (Neg) 06/12/20 06/12/20 Range/Units 20:04 16:33 WBC (4.8-10.8) K/uL RBC (4.2-5.4) M/uL Hgb (12.0-16.0) g/dL Hct (37-47) % MCV (80-100) fL MCH (25-34) pg MCHC (32-36) g/dL RDW Std Deviation (36.4-46.3) fL RDW Coeff of Jesika (11.5-14.5) % Plt Count (130-400) K/uL MPV (7.4-10.4) fL Sodium (136-145) mmol/L Potassium (3.5-5.1) mmol/L Chloride (98-107) mmol/L Carbon Dioxide (21-32) mmol/L Anion Gap (3-11) BUN (7-18) mg/dl Creatinine (0.6-1.2) mg/dl Est Cr Clr Drug Dosing ml/min Est GFR ( Amer) Est GFR (Non-Af Amer) BUN/Creatinine Ratio (10-20) Glucose (70-99) mg/dl POC Glucose 144 H 92 (70-99) mg/dl Calcium (8.5-10.1) mg/dl Magnesium (1.8-2.4) mg/dl Stl C. diff Tox B Gene (Neg) Diagnostic Findings CT OF THE ABDOMEN AND PELVIS WITHOUT CONTRAST CLINICAL HISTORY: Worsening abdominal pain. GI bleed. COMPARISON STUDY: CT of the abdomen and pelvis June 02, 2020. TECHNIQUE: Axial images of the abdomen and pelvis were obtained without IV contrast. Images were reviewed in the axial, sagittal, and coronal planes. Automated exposure control was utilized for the study. A dose lowering techniq ue was utilized adhering to the principles of ALARA. FINDINGS: No pneumatosis, free air or portal venous gas is present. Evaluation of the abdomen and pelvis is suboptimal on this unenhanced exam. The liver, right adrenal gland, spleen and pancreas are unremarkable. A left adrenal nodule is unchanged from earlier exams. This represents an adenoma. There is a cyst within the upper pole the right kidney, better depicted on prior contrast enhanced exam. Colonic diverticulosis is noted. There is persistent wall thickening of the proximal sigmoid colon with mild adjacent infiltration. 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 There is no abscess. There is no free air. No suspicious osseous lesions are noted. IMPRESSION: Colonic diverticulosis with persistent wall thickening of proximal sigmoid colon and mild adjacent infiltration consistent with acute diverticulitis. If not recently performed, a follow-up nonemergent colonoscopy is recommended to exclude the less likely possibility of an underlying mass. 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
[2020-06-13] MEDS: BIMATOPROST 0.01% OP SOLN 2.5 ML BTL OP SCH (20:57)
[2020-06-13] MEDS: ATORVASTATIN 40 MG TAB PO SCH (21:01)
[2020-06-14] MEDS: PROMETHAZINE HCL 25 MG TAB PO PRN ×3 (04:26→21:01)
[2020-06-14] MEDS: ALBUTEROL HFA 8 GM INHALER INH SCH ×4 (07:08→19:15)
[2020-06-14] MEDS: IPRATROPIUM BROMIDE HFA INHALER INH SCH ×4 (07:08→19:16)
[2020-06-14] MEDS: ONDANSETRON 4 MG OD TAB PO PRN ×2 (07:20→18:10)
[2020-06-14] MEDS: HYDROCODONE/ACETAMOPHEN 5/325MG TAB PO PRN (07:20)
[2020-06-14] MEDS: UMECLIDINIUM BROMIDE 62.5MCG/BLISTER 7 PUFFS/INHALER INH SCH (07:22)
[2020-06-14] MEDS: FERROUS SULFATE 325 MG TAB PO SCH (07:23)
[2020-06-14] MEDS: DICYCLOMINE HCL 10 MG CAP PO SCH ×2 (07:23→20:55)
[2020-06-14] MEDS: ERYTHROMYCIN DELAYED RELEASE 250 MG CAP PO SCH ×2 (07:23→11:53)
[2020-06-14] MEDS: PANTOprazole 40 MG TAB PO SCH ×2 (07:24→20:55)
[2020-06-14] MEDS: POLYETHYLENE (MIRALAX) 17 GM PACK PO SCH (07:24)
[2020-06-14] MEDS: BRINZOLAMIDE (AZOPT) OPS 10 ML BTL OP SCH ×2 (07:25→20:54)
[2020-06-14] MEDS: INSULIN ASPART 100 UNITS/ML 3 ML PEN SC SCH ×4 (08:28→20:56)
--- NOTE | 2020-06-14 09:33 | Hospitalist Progress Note ---
Date of Service June 14, 2020 Assessment & Plan (1) Nausea: Cont supportive care. 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 Unclear if this may be contributing? Spoke with RN Patient had breakfast today so Gastric emptying study will be done tomorrow morning Continue supportive care per GI recommendations (2) Diverticulitis: Antibiotics discontinued per ID recommendations Will monitor off antibiotics (3) Diabetes mellitus, type 2: Hgb A1c 7.0 02/2020 Continue to hold oral agents and utilize NovoLog per protocol while hospitalized (4) Paroxysmal atrial fibrillation: Diltiazem has been on hold since 06/11 BP stable. Rate controlled Will check orthostatics If GI bleeding continue to improve and orthostatics negative, will plan to resume Not anticoagulated due to history of GI bleeding. S/p watchman procedure (5) Chronic diastolic CHF (congestive heart failure): Patient appears euvolemic Continue to hold furosemide due to acute illness (6) COPD (chronic obstructive pulmonary disease): Appears stable, no signs of acute exacerbation Saturating well on chronic 2 L of oxygen continue home inhalers (7) Acute blood loss anemia: Not at level to receive a transfusion, but watching her closely. No hematochezia today Hb is stable in 8. Continue to monitor (8) DVT prophylaxis: SCDs due to history of GI bleeding and current diverticulitis Full Code Dispo-to home (lives alone) once clinically stable. Possible discharge in next 1 to 2 days Admission and Anticipated Discharge Date Admission Date: June 02, 2020 Subjective Patient seen and examined today. Reports nausea this AM after breakfast which improved with antinausea meds. Still reports intermittent LLQ pain. Reports last BM was yesterday. States that bloody BM is improving. Reports chronic dark stool which she ascribed to iron pills but the episodes over the past few days had blood in it as well. Denied any fevers, chills Denied any cough, chest pain, change in chronic KULKARNI. At baseline home oxygen of 2l/min in day and 4l/min at bedtime Denied any palpitation. Reports occasional dizziness on standing Denied any leg swelling Denied any dysuria, freq, urgency, hematuria Physical Exam Constitutional: + obese; no acute distress Eyes: PERRL, conjunctivae normal, anicteric sclerae ENMT: external ear and nose normal, oropharynx normal Nasal cannula at 2l/min Respiratory: normal respiratory effort, lungs clear to auscultation Cardiovascular: Regular rate, irregular rhythm, S1 S2, no pedal edema Gastrointestinal (Abdomen): Inspection/Auscultation: abdomen normal to inspection and normal bowel sounds; abdomen not distended Percussion/Palpation: + abdomen tender (LLQ) and abdomen soft; no guarding and abdomen not rigid Musculoskeletal: no cyanosis or clubbing, extremities motor strength 5/5 Neurologic: PERRL, EOMI, accommodation nl, no face palsy, no dysarthria Psychiatric: A+Ox3, euthymic affect Results & Data Results & Data ([facility]) Vital Signs (Past 12 Hours) Vital Signs Temp Pulse Resp BP BP Pulse Ox 06/14/20 07:36 36.7 C 90 20 106/64 98 06/14/20 07:10 90 20 98 06/13/20 23:20 37.0 C 82 20 99/69 L 96 Laboratory Results Laboratory Results - last 24 hr 06/13/20 06/13/20 06/13/20 11:34 14:05 16:31 Hgb 8.0 L Hct 26.7 L POC Glucose 126 H 118 H 06/13/20 06/14/20 19:58 07:29 Hgb Hct POC Glucose 156 H 128 H
--- NOTE | 2020-06-14 11:22 | Surgery Progress Note ---
Date of Service June 14, 2020 Assessment & Plan (1) Diverticulitis: Very little pain today. Continue IV antibiotics Would not recommend surgical intervention at this time Admission and Anticipated Discharge Date Admission Date: June 02, 2020 Subjective No nausea or vomiting Having very little abdominal pain Passing her bowels H&H is stable Physical Exam Gastrointestinal (Abdomen): Inspection/Auscultation: abdomen normal to inspection and normal bowel sounds; abdomen not distended Percussion/Palpation: abdomen soft; abdomen nontender Results & Data ([facility]) Vital Signs (Past 12 Hours) Vital Signs Temp Pulse Resp BP Pulse Ox 06/14/20 07:36 36.7 C 90 20 106/64 98 06/14/20 07:10 90 20 98 Laboratory Results 06/14/20 06/13/20 06/13/20 Range/Units 07:29 19:58 16:31 Hgb (12.0-16.0) g/dL Hct (37-47) % POC Glucose 128 H 156 H 118 H (70-99) mg/dl 06/13/20 06/13/20 Range/Units 14:05 11:34 Hgb 8.0 L (12.0-16.0) g/dL Hct 26.7 L (37-47) % POC Glucose 126 H (70-99) mg/dl
--- NOTE | 2020-06-14 12:41 | Gastroenterology Progress Note ---
Date of Service June 14, 2020 Assessment & Plan (1) Diverticulitis: Diverticulitis pain significantly improved. Nausea persists though prn meds were helpful this morning. 1. Continue erythromycin 250mg achs. 2. Reasonable to do a NM GES tomorrow but emycin should be DC'ed today if going forward with GES. 3. No indication for EGD at this time as completed in April w/o significant abnormalities. 3. If no improvement in nausea with emycin then will consider a repeat dose of Emend tomorrow. 4. Adv diet as tolerated. (2) Diverticular hemorrhage: Seems to be resolved. Hb stable. Admission and Anticipated Discharge Date Admission Date: June 02, 2020 Supervising Physician Co-Signing Physician Notes I saw and evaluated the patient on 06/14/20. She continues to have some issues with nausea although this is a chronic problem. Gastric emptying study has been ordered for further evaluation. Would recommend a low residue diet and antiemetic therapy as needed. Please avoid use of narcotics as these could certainly potentiate her nausea symptoms. Subjective 79 yr female admitted on 06/[address] prior to admission with diverticulitis. Main problem is nausea, occurred this morning after eating. Pt tells us it is not present now, that it improved with the nausea medication that she was given this morning. Antibiotics DC'ed yesterday. Hb 11.7 on arrival, 8.2 yesterday 8 today. Review of Systems Review of Systems: ROS: Gen: Denies weakness, fevers, weight loss Eyes: No eye redness, or pain, no recent vision changes Resp: No SOB, no cough Cardio: No palpitations/irregular beats, no chest pain GI: See HPI : Denies pain on urination Skin: No jaundice, itching or new rashes Physical Exam Constitutional: WD/WN, vitals as above + obese Eyes: PERRL, conjunctivae normal, anicteric sclerae ENMT: external ear and nose normal, oropharynx normal Neck: trachea midline, no thyromegaly Respiratory: normal respiratory effort, lungs clear to auscultation Cardiovascular: RRR, no murmur, no edema Gastrointestinal (Abdomen): Inspection/Auscultation: abdomen normal to inspection and normal bowel sounds Percussion/Palpation: + abdomen tender (LLQ w/o rebound or guarding) and abdomen soft Skin: no rashes, warm and dry Neurologic: PERRL, EOMI, accommodation nl, no face palsy, no dysarthria Psychiatric: A+Ox3, euthymic affect Lymphatic: no cervical or axillary lymphadenopathy Results & Data ([facility]) Vital Signs (Past 12 Hours) Vital Signs Temp Pulse Resp BP Pulse Ox 06/14/20 07:36 36.7 C 90 20 106/64 98 06/14/20 07:10 90 20 98 Laboratory Results WBC 9.8, Hb 8, Hct 26, Plt 351, Na 144, K 3.8, BUN 12, Cr0.7, glucose 128 Diagnostic Findings Non con CT 06/11 Colonic diverticulosis with persistent wall thickening of proximal sigmoid colon and mild adjacent infiltration consistent with acute diverticulitis. If not recently performed, a follow-up nonemergent colonoscopy is recommended to exclu de the less likely possibility of an underlying mass. 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 Bleeding scan 06/12: (-)
[2020-06-14] MEDS: BIMATOPROST 0.01% OP SOLN 2.5 ML BTL OP SCH (20:54)
[2020-06-14] MEDS: ATORVASTATIN 40 MG TAB PO SCH (20:55)
[2020-06-15] MEDS: HYDROCODONE/ACETAMOPHEN 5/325MG TAB PO PRN ×2 (06:10→15:30)
[2020-06-15 06:56] LABS: Hematocrit (blood only) 27.3 % (37-47); Hemoglobin 8.3 g/dL (12.0-16.0); Mean Corpuscular Hemoglobin 27.7 pg (25-34); Mean Corpuscular Hgb Conc 30.4 g/dL (32-36); Mean Platelet Volume 9.4 fL (7.4-10.4); Nucleated RBC # (auto) 0.02 K/uL (0-0); Nucleated RBC % (auto) 0.2 %; Platelet Count 406 K/uL (130-400); RDW Coefficient of Variation 14.2 % (11.5-14.5); RDW Standard Deviation 46.3 fL (36.4-46.3); White Blood Count 9.55 K/uL (4.8-10.8)
[2020-06-15] MEDS: ALBUTEROL HFA 8 GM INHALER INH SCH ×4 (07:02→19:17)
[2020-06-15] MEDS: IPRATROPIUM BROMIDE HFA INHALER INH SCH ×4 (07:02→19:17)
[2020-06-15 07:32] LABS: BUN Creatinine Ratio 14.8 (10-20); Calcium 8.9 mg/dl (8.5-10.1); Creatinine Clr Calc Pharmacy 72.9 ml/min; Est GFR (African American) 89.5; Est GFR (Non-African American) 77.2
[2020-06-15] MEDS: UMECLIDINIUM BROMIDE 62.5MCG/BLISTER 7 PUFFS/INHALER INH SCH (08:01)
[2020-06-15] MEDS: DICYCLOMINE HCL 10 MG CAP PO SCH ×2 (08:01→20:51)
[2020-06-15] MEDS: FERROUS SULFATE 325 MG TAB PO SCH (08:01)
[2020-06-15] MEDS: POLYETHYLENE (MIRALAX) 17 GM PACK PO SCH (08:01)
[2020-06-15] MEDS: PANTOprazole 40 MG TAB PO SCH ×2 (08:02→20:50)
[2020-06-15] MEDS: INSULIN ASPART 100 UNITS/ML 3 ML PEN SC SCH ×4 (08:15→20:52)
[2020-06-15] MEDS: BRINZOLAMIDE (AZOPT) OPS 10 ML BTL OP SCH ×2 (08:16→20:49)
--- NOTE | 2020-06-15 09:46 | Hospitalist Progress Note ---
Date of Service June 15, 2020 Assessment & Plan (1) Nausea: Cont supportive care. 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 Unclear if this may be contributing? Planned for Gastric emptying study this morning Continue supportive care per GI recommendations Resume erythromycin after study (2) Diverticulitis: Antibiotics discontinued per ID recommendations Will monitor off antibiotics (3) Diabetes mellitus, type 2: Hgb A1c 7.0 02/2020 Continue to hold oral agents and utilize NovoLog per protocol while hospitalized (4) Paroxysmal atrial fibrillation: Diltiazem has been on hold since 06/11 BP running low. Rate controlled Will check orthostatics today If GI bleeding continue to improve and orthostatics negative, will plan to resu me Not anticoagulated due to history of GI bleeding. S/p watchman procedure (5) Chronic diastolic CHF (congestive heart failure): Patient appears euvolemic Continue to hold furosemide due to acute illness (6) COPD (chronic obstructive pulmonary disease): Appears stable, no signs of acute exacerbation Saturating well on chronic 2 L of oxygen continue home inhalers (7) Acute blood loss anemia: Not at level to receive a transfusion, but watching her closely. Hb is stable in 8. Continue to monitor (8) DVT prophylaxis: SCDs due to history of GI bleeding and current diverticulitis Full Code Dispo-to home (lives alone) once clinically stable. Possible discharge tomorrow Admission and Anticipated Discharge Date Admission Date: June 02, 2020 Subjective Patient seen and examined. Reported nausea yesterday evening. No vomiting Reports improved abd pain Reports she still had some bloody in commode yesterday but improved from prior Denied any dizziness, palpitation, worsening SOB/KULKARNI Denied any chest pain Denied any dysuria, frequency, urgency, hematuria Physical Exam Constitutional: + obese; no acute distress Eyes: PERRL, conjunctivae normal, anicteric sclerae ENMT: external ear and nose normal, oropharynx normal Respiratory: normal respiratory effort, lungs clear to auscultation Gastrointestinal (Abdomen): Inspection/Auscultation: abdomen normal to inspection and normal bowel sounds; abdomen not distended Percussion/Palpation: abdomen soft; abdomen nontender, no guarding and abdomen not rigid Musculoskeletal: no cyanosis or clubbing, extremities motor strength 5/5 Neurologic: PERRL, EOMI, accommodation nl, no face palsy, no dysarthria Psychiatric: A+Ox3, euthymic affect Results & Data Results & Data ([facility]) Vital Signs (Past 12 Hours) Vital Signs Temp Pulse Resp BP Pulse Ox 06/15/20 07:18 36.6 C 73 18 97/63 L 96 06/15/20 07:03 67 18 97 06/14/20 23:00 36.8 C 76 18 119/64 99 Laboratory Results Laboratory Results - last 24 hr 06/14/20 06/14/20 06/14/20 11:23 16:39 20:18 WBC RBC Hgb Hct MCV MCH MCHC RDW Std Deviation RDW Coeff of Jesika Plt Count MPV Absolute Nucleated RBC Nucleated RBC % (auto) Sodium Potassium Chloride Carbon Dioxide Anion Gap BUN Creatinine Est Cr Clr Drug Dosing Est GFR ( Amer) Est GFR (Non-Af Amer) BUN/Creatinine Ratio Glucose POC Glucose 174 H 142 H 177 H Calcium 06/15/20 06/15/20 06/15/20 05:47 05:47 07:35 WBC 9.55 RBC 3.00 L Hgb 8.3 L Hct 27.3 L MCV 91.0 MCH 27.7 MCHC 30.4 L RDW Std Deviation 46.3 RDW Coeff of Jesika 14.2 Plt Count 406 H MPV 9.4 Absolute Nucleated RBC 0.02 H Nucleated RBC % (auto) 0.2 Sodium 144 Potassium 4.0 Chloride 109 H Carbon Dioxide 31 Anion Gap 4.0 BUN 11 Creatinine 0.73 Est Cr Clr Drug Dosing 72.9 Est GFR ( Amer) 89.5 Est GFR (Non-Af Amer) 77.2 BUN/Creatinine Ratio 14.8 Glucose 111 H POC Glucose 130 H Calcium 8.9
--- NOTE | 2020-06-15 10:20 | Gastroenterology Progress Note ---
Date of Service June 15, 2020 Assessment & Plan (1) Nausea: Will review gastric emptying study results when available. Would not repeat EGD for nausea on 05/08/20 was normal. Nausea may be improved in the past few days and has been on e-mycin, so would continue that. Pt also tells me that Phenergan seems to work better than ondansetron for nausea so would continue that. Present on Admission?: Yes Admission and Anticipated Discharge Date Admission Date: June 02, 2020 Supervising Physician Co-Signing Physician Notes I saw and evaluated the patient. She notes that her nausea has improved significantly with use of the erythromycin. We are waiting the results of her gastric emptying study but at the present time I see no contraindication from a gastroenterology standpoint for discharge. We would recommend use of erythromycin for 2 weeks upon discharge. She will follow-up with Ms. garcia in the office as well. We would suggest that she be released on a low residue diet given the suspicion for gastroparesis. Subjective 79 yr female admitted on 06/[address] prior to admission with diverticulitis. Main problem is nausea, chronic, present x 3-4 wks. Pt says better this morning, "because I did not eat anything." Reports that nausea had been present constantly but now seems to be present just after eating. When asked about abdominal pain states it is better that she has just mild left lower quadrant tenderness. And also experienced rectal bleeding which is stabilized hemoglobin .11.2 on arrival, 8.0 yesterday, 8.3 today. Did not require blood transfusion. Review of Systems Review of Systems: ROS: Gen: Denies weakness, fevers, weight loss Eyes: No eye redness, or pain, no recent vision changes Resp: No SOB, no cough Cardio: No palpitations/irregular beats, no chest pain GI: As per HPI, otherwise negative. : Denies pain on urination Skin: No jaundice, itching or new rashes Physical Exam Constitutional: WD/WN, vitals as above + obese Eyes: PERRL, conjunctivae normal, anicteric sclerae ENMT: external ear and nose normal, oropharynx normal Neck: trachea midline, no thyromegaly Respiratory: normal respiratory effort, lungs clear to auscultation Cardiovascular: RRR, no murmur, no edema Gastrointestinal (Abdomen): Inspection/Auscultation: abdomen normal to inspection and normal bowel sounds Percussion/Palpation: + abdomen tender (Very mild in the left lower quadrant with deep palpation) and abdomen soft Skin: no rashes, warm and dry Neurologic: PERRL, EOMI, accommodation nl, no face palsy, no dysarthria Psychiatric: A+Ox3, euthymic affect Lymphatic: no cervical or axillary lymphadenopathy Results & Data ([facility]) Vital Signs (Past 12 Hours) Vital Signs Temp Pulse Resp BP Pulse Ox 06/15/20 07:18 36.6 C 73 18 97/63 L 96 06/15/20 07:03 67 18 97 06/14/20 23:00 36.8 C 76 18 119/64 99 Laboratory Results WBC 9, Hb 8.3, HCT 27, NA 144, K4.0, BUN 11, CR 0.7, glucose 111.
[2020-06-15] MEDS ORDERED: SODIUM CHLORIDE 0.9% 1000ML 1,000 ML IV ONE (10:30)
--- NOTE | 2020-06-15 14:58 | Nuclear Medicine Report ---
NM gastric emptying study CLINICAL HISTORY: 79 years-old Female with Intractable nausea, diabetic gastroparesis. Nausea with g astroparesis TECHNIQUE: After the oral ingestion of the meal consisting of egg substitute labeled with 1.0 mCi te chnetium-99m sulfur colloid, toast, jam and water, sequential anterior and posterior images were obta ined through 4 hours. Residual gastric activity was measured at several time points. COMPARISON: CT abdomen and pelvis 06/11/2020 FINDINGS: There is normal emptying of the gastric contents into the intestine. The gastric retention of activity was calculated as follows: 1 HOUR: 73% (normal range = 30-90%). 2 HOURS: 52% (normal range = 0-60%). 4 HOURS: 4% (normal range = 0-10%). IMPRESSION: Normal gastric emptying study. ACT 112: Negative or not required by law. The above report was generated using voice recognition software. It may contain grammatical, syntax o r spelling errors. Electronically signed by: Lewis Aviles M.D. 06/15/2020 2:56 PM
[2020-06-15] MEDS ORDERED: Nursing to Pharmacy Communication SCH (15:30)
[2020-06-15] MEDS: SODIUM CHLORIDE 0.9% 1000ML 1,000 ML IV SCH (16:26)
[2020-06-15] MEDS: ERYTHROMYCIN DELAYED RELEASE 250 MG CAP PO SCH ×2 (17:50→21:14)
[2020-06-15] MEDS: BIMATOPROST 0.01% OP SOLN 2.5 ML BTL OP SCH (20:50)
[2020-06-15] MEDS: ATORVASTATIN 40 MG TAB PO SCH (20:50)
[2020-06-16] MEDS: HYDROCODONE/ACETAMOPHEN 5/325MG TAB PO PRN
[2020-06-16] MEDS: ONDANSETRON 4 MG OD TAB PO PRN ×2 (00:01→10:55)
[2020-06-16] MEDS: SODIUM CHLORIDE 0.9% 1000ML 1,000 ML IV SCH ×2 (02:07→12:08)
[2020-06-16] MEDS: IPRATROPIUM BROMIDE HFA INHALER INH SCH ×2 (07:12→11:26)
[2020-06-16] MEDS: ALBUTEROL HFA 8 GM INHALER INH SCH ×2 (07:12→11:26)
[2020-06-16] MEDS: ERYTHROMYCIN DELAYED RELEASE 250 MG CAP PO SCH ×2 (07:51→12:09)
[2020-06-16] MEDS: POLYETHYLENE (MIRALAX) 17 GM PACK PO SCH (07:51)
[2020-06-16] MEDS: DICYCLOMINE HCL 10 MG CAP PO SCH (07:51)
[2020-06-16] MEDS: BRINZOLAMIDE (AZOPT) OPS 10 ML BTL OP SCH (07:51)
[2020-06-16] MEDS: PANTOprazole 40 MG TAB PO SCH (07:52)
[2020-06-16] MEDS: UMECLIDINIUM BROMIDE 62.5MCG/BLISTER 7 PUFFS/INHALER INH SCH (07:52)
[2020-06-16] MEDS: FERROUS SULFATE 325 MG TAB PO SCH (07:52)
[2020-06-16] MEDS: INSULIN ASPART 100 UNITS/ML 3 ML PEN SC SCH ×2 (07:55→12:08)
[2020-06-16 08:56] LABS: Hematocrit (blood only) 26.5 % (37-47); Mean Corpuscular Hemoglobin 27.6 pg (25-34); Mean Corpuscular Hgb Conc 30.2 g/dL (32-36); Mean Corpuscular Volume 91.4 fL (80-100); Platelet Count 409 K/uL (130-400); RDW Coefficient of Variation 14.3 % (11.5-14.5); RDW Standard Deviation 47.1 fL (36.4-46.3)
[2020-06-16 09:22] LABS: BUN Creatinine Ratio 12.6 (10-20); Calcium 8.6 mg/dl (8.5-10.1); Creatinine Clr Calc Pharmacy 75.5 ml/min; Est GFR (African American) 92.6; Est GFR (Non-African American) 79.9; Potassium 3.7 mmol/L (3.5-5.1)
--- NOTE | 2020-06-16 11:37 | Discharge Summary ---
Date of Service June 16, 2020 Admission HPI Per Admitting Provider 79-year-old female with PMH DM type II, asthma, COPD, chronic hypoxic respiratory failure on home O2, paroxysmal atrial fibrillation status post watchman procedure, chronic diastolic CHF, and other problems listed below who presents the ED for evaluation of nausea. Patient was seen by her PCP on 05/18 for complaints of nausea and left-sided abdominal pain. She was given prescriptions for Cipro and Flagyl and was instructed to start taking if her symptoms worsened. Patient reports she took the antibiotics for 2 days last week however felt as though they made her more nauseous so she therefore stopped. Patient reports ongoing nausea and some intermittent left-sided abdominal pain. She reports that abdominal pain has been mild. She has not had any vomiting. She has had a very poor appetite with poor p.o. intake. No diarrhea, reports she feels as though she is constipated. Denies chest pain, shortness of breath, palpitations. Reports of intermittent episodes of lightheadedness and dizziness however no syncopal event. No fevers or chills. She denies any urinary symptoms. In the ED, CT ABD/pelvis show signs of acute sigmoid diverticulitis. Patient is afebrile, no leukocytosis. She was given IV Zosyn, IV Zofran, IV Reglan, p.o. hydrocodone/acetaminophen. She also received IV diphenhydramine and IV Solu-Medrol for premedication for CT dye. Admission Exam Per Admitting Provider Constitutional: WD/WN, vitals as above Eyes: PERRL, conjunctivae normal, anicteric sclerae ENMT: external ear and nose normal, oropharynx normal Respiratory: normal respiratory effort, lungs clear to auscultation Cardiovascular: Rate/Rhythm: regular rate and + irregularly irregular Vessels: normal peripheral pulses Extremities: no edema Gastrointestinal (Abdomen): Inspection/Auscultation: normal bowel sounds; abdomen not distended Percussion/Palpation: + abdomen tender (Mild, left abdomen) and abdomen soft; no guarding, abdomen not rigid and no hepatosplenomegaly Musculoskeletal: no cyanosis or clubbing, extremities motor strength 5/5 Skin: no rashes, warm and dry Neurologic: PERRL, EOMI, accommodation nl, no face palsy, no dysarthria Psychiatric: A+Ox3, euthymic affect Principal Diagnosis Diverticulitis Intractable nausea Lower GI bleed Discharge Exam Constitutional + obese; no acute distress Eyes PERRL, conjunctivae normal, anicteric sclerae ENMT external ear and nose normal, oropharynx normal Respiratory normal respiratory effort, lungs clear to auscultation Cardiovascular Rate/Rhythm: + irregularly irregular S1 S2 no pedal edema Gastrointestinal (Abdomen) Inspection/Auscultation: abdomen normal to inspection and normal bowel sounds; abdomen not distended Percussion/Palpation: abdomen soft; abdomen nontender, no guarding and abdomen not rigid Musculoskeletal no cyanosis or clubbing, extremities motor strength 5/5 Neurologic PERRL, EOMI, accommodation nl, no face palsy, no dysarthria Psychiatric A+Ox3, euthymic affect Discharge Data Allergies Allergy/AdvReac Type Severity Reaction Status Date / Time salmon oil Allergy Severe HIVES-REDDENED Verified 06/02/20 12:33 ALL OVER Iodinated Contrast Media Allergy Intermediate HIVES-GI Verified 06/02/20 12:33 SYMPTOMS lisinopril Allergy Intermediate FAST HEART Verified 06/02/20 12:33 BEAT valsartan Allergy Intermediate FAST HEART Verified 06/02/20 12:33 BEAT bupropion AdvReac Mild GI SYMPTOMS Verified 06/02/20 12:33 enalapril AdvReac Mild GI SYMPTOMS Verified 06/02/20 12:33 escitalopram AdvReac Mild GI SYMPTOMS Verified 06/02/20 12:33 metoprolol AdvReac Mild LOWERS Verified 06/02/20 12:33 PULSE RATE verapamil AdvReac Mild GI UPSET, Verified 06/02/20 12:33 fast heart rate Consultations 06/02/20 15:38 ED Decision to Admit Stat 06/02/20 17:10 Consult Case Management - Discharge Planning Routine 06/06/20 10:31 Consult Gastroenterology Routine 06/13/20 08:54 Consult General Surgery Routine 06/13/20 11:39 Consult General Surgery Routine Consult Infectious Diseases Routine Ordered Studies 06/02/20 12:41 CT abd pelvis IV con only Stat FINDINGS: No pneumatosis, free air or portal venous gas is present. Mild dilatation of the common bile duct is unchanged. The gallbladder is likely surg ically absent. A left adrenal nodule measuring 2.2 cm is unchanged. The right adrenal gland, spleen and pancreas are unremarkable. There is no peripancreatic infiltration. Bilateral renal lesions favor cysts. There is extensive colonic diverticulosis. 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 There is mild adjacent infiltration. There is also mild wall thickening of the proximal to mid sigmoid colon. There is no free air or abscess. There is fluid and gas within the diverticulum, as before. There are no suspicious osseous lesions. There is no hydronephrosis. 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 Mild adjacent infiltration and mild wall thickening of the proximal to mid sigmoid colon. The findings favor acute sigmoid diverticulitis. A nonspecific colitis could appear similar but is considered less likely. No free air or abscess. 06/11/20 22:07 CT abd pelvis wo con Urgent FINDINGS: No pneumatosis, free air or portal venous gas is present. Evaluation of the abdomen and pelvis is suboptimal on this unenhanced exam. The liver, right adrenal gland, spleen and pancreas are unremarkable. A left adrenal nodule is unchanged from earlier exams. This represents an adenoma. There is a cyst within the upper pole the right kidney, better depicted on prior contrast enhanced exam. Colonic diverticulosis is noted. There is persistent wall thickening of the proximal sigmoid colon with mild adjacent infiltration. 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 There is no abscess. There is no free air. No suspicious osseous lesions are noted. IMPRESSION: Colonic diverticulosis with persistent wall thickening of proximal sigmoid colon and mild adjacent infiltration consistent with acute diverticulitis. If not recently performed, a follow-up nonemergent colonoscopy is recommended to exclude the less likely possibility of an underlying mass. 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 Hospital Course (1) Nausea: Cont supportive care. 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 Unclear if this may be contributing? Intractable nausea, improving Patient was evaluated by GI Also had gastric emptying study which was normal Was started on erythromycin for possible gastroparesis with improved symptoms Also started on phenergan. Dicyclomine increased to BID per GI recommendations QTc today is 470 Zofran discontinued on discharge Patient to follow up with GI outpatient (2) Diverticulitis: Completed antibiotic therapy for diverticulitis while inpatient (3) Diabetes mellitus, type 2: Hgb A1c 7.0 02/2020 Continue home antidiabetics (4) Paroxysmal atrial fibrillation: Patient's BP had been running low Had positive orthostatics as well as orthostatic dizziness Diltiazem and lasix have been on hold for some days. Got some IVF bolus yesterday with resolution of dizziness Called patient's cardiology office and left message with staff about medication changes. I was also able to get them to schedule appt for patient on 06/21/20 for close follow up Discussed all these in details with patient to hold diltiazem and lasix till follow up with Cardiology Patient not interested in metoprolol for now due to previous documentation of low HR with it Not anticoagulated due to history of GI bleeding. S/p watchman procedure (5) Chronic diastolic CHF (congestive heart failure): Patient appears euvolemic Lasix held as above Patient to follow up Communication Technician Dr Meza on 06/21/20 (6) COPD (chronic obstructive pulmonary disease): Appears stable, no signs of acute exacerbation Saturating well on chronic 2 L of oxygen continue home inhalers (7) Acute blood loss anemia: Secondary to acute LGIB while inpatient. Likely diverticular bleed which has resolved Hb was in 11 on presentation. Currently stable in 8 Patient to follow up GI outpatient Total Time Total Time Spent Total Time Spent (In Minutes): 50 Total Time Includes: Examination of the Patient, Discharge Planning, Medication Reconciliation and Communication With Other Providers Discharge Plan Discharge Items Patient Disposition: Home - Self-Care Reason For Visit: DIVERTICULITIS Discharge Diagnosis: Intractable nausea Diverticulitis Low GI bleed Activity: Resume your previous activity Non-emergency contact: Primary Care Provider, Communication Technician and Puppet Developer Call non-emergency contact if: you have any medication questions and your symptoms worsen Follow-up/Referrals: Antelmo Meza [Other] - 06/21/20 10:45 am ( Communication Technician) Marcela Pinto MD [Primary Care Provider] - 06/22/20 2:20 pm (Date & Time 06/22/2020 2:20 PM Provider Marcela Pinto MD Department General Internal Medicine [facility] ) Diet: Carb Consistent or DM2 and Heart Healthy Addtl Attending Provider Instructions: Ms Harrington. You came to the hospital complaining of intractable nausea and left sided abdominal pain. You were evaluated and treated for diverticulitis. You also continued to have nausea though significantly improved. You were evaluated by Puppet Developer and started on antinausea medication as well as medication for gastroparesis. You had episodes of blood in stool which has remarkably improved. It is very important that you follow up with Gastroenterology outpatient for further management. You also had episodes of hypotension and dizziness. For this, your diltiazem and furosemide were suspended. Please continue to hold them for now until you see your Communication Technician on 06/21/20 at 10:45am. Please follow up with your Primary Doctor as well. It was a pleasure taking care of you. Pending Studies at Discharge: No Stand-Alone Forms: My [facility] Ceon, Smoking Cessation Medications and DC Order Prescriptions: New erythromycin [Matthew-Tab] 250 mg Tablet,Delayed Release (Dr/Ec) 250 mg PO AC 30 Days Qty: 90 RF: 0 promethazine 25 mg Tablet 25 mg PO Q6H PRN (Reason: nausea and vomiting) Qty: 60 RF: 0 dicyclomine 20 mg Tablet 20 mg PO BID 30 Days Qty: 60 RF: 0 Continued Incruse Ellipta 62.5 mcg/actuation blister with device 1 puffs INH QAM RF: 0 (DME) Oxygen Home Liters Per Minute See Rx Instructions .ROUTE .MEDSUPPLY Qty: 1 RF: 0 aspirin 81 mg tablet,delayed release (DR/EC) 81 mg PO QAM RF: 0 multivitamin Tablet 1 tab PO DAILY RF: 0 atorvastatin 40 mg Tablet 40 mg PO HS RF: 0 hydrocodone-acetaminophen 5-325 mg Tablet 1 tab PO QID PRN (Reason: Pain) RF: 0 zafirlukast 20 mg Tablet 20 mg PO QAM RF: 0 docusate sodium 100 mg Capsule 100 mg PO QAM RF: 0 omeprazole 20 mg Capsule,Delayed Release(Dr/Ec) 20 mg PO BID RF: 0 cholecalciferol (vitamin D3) [Vitamin D3] 1,000 unit Capsule 1,000 unit PO QAM RF: 0 ferrous sulfate [iron] 325 mg (65 mg iron) tablet 325 mg PO QAM RF: 0 glimepiride 4 mg tablet 4 mg PO QAM RF: 0 albuterol sulfate 2.5 mg /3 mL (0.083 %) Solution For Nebulization 2.5 mg INHALATION BID PRN (Reason: .WORSENING ASTHMA) RF: 0 Azopt 1 % Drops,Suspension 1 drp OPHTHALMIC (EYE) BID RF: 0 Combivent Respimat 20-100 mcg/actuation Mist 1 puff INHALATION QID RF: 0 Lumigan 0.01 % drops 1 drp OPB HS RF: 0 polyethylene glycol 3350 [Miralax] 17 gram/dose Powder 17 g PO BID PRN (Reason: Constipation) RF: 0 albuterol sulfate [Ventolin HFA] 90 mcg/actuation HFA aerosol inhaler 2 puff INHALATION QID PRN (Reason: Shortness Of Breath) RF: 0 Discontinued ondansetron HCl 8 mg tablet 8 mg PO Q8H PRN (Reason: Nausea) RF: 0 diltiazem HCl 360 mg Capsule,Extended Release 24hr 360 mg PO QAM RF: 0 potassium chloride [Klor-Con M20] 20 mEq tablet,ER particles/crystals 20 meq PO DAILY RF: 0 furosemide [Lasix] 40 mg tablet 40 mg PO HS RF: 0 Discharge Orders: Discharge Order (Routine); Ordered 06/16/20 Ordered By: Areli Dela Cruz Admission Data Admit Date/Time: 06/02/20 15:47 Attending Provider: Areli Dela Cruz I. Admit Provider: Frank Santiago Primary Care Provider: Marcela Pinto Other Providers: Frank Santiago ; To Cueva ; Cari An ; Kimani Guillen ; Misty Castillo ; Charles Coello ; Zulay Eagle ; Jamarcus Matos ; Rachel Granger ; Mushtaq Roca ; Judson Lloyd ; Courtney Sprague ; Svetlana Villalta ; Lilibeth Edwards ; Marycarmen Adame ; Manju Carrillo ; Jerry Pugh ; Shimon Garcia ; Ingris Reyes ; Chavez Jarrell I. ; Dhruv Sen II ; Mamta Farley ; Jerry Wilson ; Ruby Begum Other Interventions: Discharge Summary Assessment (RN) Last Done: 06/16/20 12:13
--- NOTE | 2020-06-18 04:40 | Electrocardiogram Report ---
Test Reason : Blood Pressure : / mmHG Vent. Rate : 104 BPM Atrial Rate : 000 BPM P-R Int : 000 ms QRS Dur : 122 ms QT Int : 358 ms P-R-T Axes : 000 -57 111 degrees QTc Int : 470 ms Atrial fibrillation with rapid ventricular response with premature ventricular or aberrantly conducte d complexes Left anterior fascicular block Minimal voltage criteria for LVH, may be normal variant Nonspecific ST and T wave abnormality Abnormal ECG When compared with ECG of 02-JUN-2020 13:07, Vent. rate has increased BY 35 BPM Confirmed by rTav Brar ([id number]) on 06/18/2020 4:39:57 AM Referred By: REFERRED SELF Confirmed By:Trav Brar
== END 2020-06-16 13:06 | disposition home or self-care (01) | DRG 378 ==
LOC: ED 11:52 → SUATTDRO 15:47 → 2W 15:47

== ENCOUNTER 2020-07-28 11:08 | Inpatient (IN) ==
--- NOTE | 2020-07-28 12:07 | Emergency Department Note ---
History of Present Illness General Chief complaint: GI Assessment Stated complaint: DIVERTICULITIS FLAREUP Time Seen by Provider: 07/28/20 11:47 Source: patient History of Present Illness Provider complaint: Abdominal pain Onset (ago): week(s) Location: abdomen and left Radiation: non-radiation Severity: moderate Pain Consistency: + constant Maximum Pain Intensity: 6 Quality: + sharp Relieved By: + none Associated symptoms: + shortness of breath (Chronic from COPD no change); no chest pain, no cough, no fever/chills and no nausea/vomiting This is a 89-year-old female who presents with left lower quadrant abdominal pain starting a week ago. Initially was very mild. Starting yesterday it became more intense and constant. She describes it as sharp. She rates it a 6 out of 10 in severity. No modifying factors. No associated fever. She did not e that today she had a bowel movement with a large amount of dark red blood. She cannot really quantify how much. She subsequently had another bowel movement and there was no blood on the stool but she noticed it on the toilet paper. She states her stools are normally dark because of her iron pills. She did not have diarrhea or loose stools. She does have a history of diverticulitis and states this feels similar. In the past she had to be transfused 7 units of blood. She denies any vomiting, cough or cold symptoms, chest pain, urinary symptoms or known exposure to COVID-19. She does have chronic shortness of breath which is unchanged. She denies feeling lightheaded. Home Medications Home Medications Medication Instructions Recorded Confirmed Type atorvastatin 40 mg PO HS 06/23/19 07/28/20 History cholecalciferol (vitamin D3) 1,000 unit PO QAM 06/23/19 07/28/20 History [Vitamin D3] docusate sodium 100 mg PO QAM 06/23/19 07/28/20 History omeprazole 20 mg PO BID 06/23/19 07/28/20 History zafirlukast 20 mg PO QAM 06/23/19 07/28/20 History Azopt 1 drp OPB BID 09/25/19 07/28/20 History Combivent Respimat 1 puff INHALATION QID 09/25/19 07/28/20 History Lumigan 1 drp OPB HS 09/25/19 07/28/20 History albuterol sulfate 2.5 mg INHALATION BID PRN 09/25/19 07/28/20 History albuterol sulfate [Ventolin HFA] 2 puff INHALATION QID PRN 09/25/19 07/28/20 History polyethylene glycol 3350 [Miralax] 17 g PO BID PRN 09/25/19 07/28/20 History Oxygen Home #1 ea 01/14/20 04/10/20 History ferrous sulfate 325 mg (65 mg 325 mg PO QAM tab 02/23/20 07/28/20 History iron) tablet glimepiride 4 mg tablet 4 mg PO QAM tab 02/23/20 07/28/20 History multivitamin 1 tab PO QAM 06/02/20 07/28/20 History dicyclomine 20 mg PO BID 30 Days #60 tab 06/16/20 07/28/20 Rx promethazine 25 mg PO Q6H PRN #60 tab 06/16/20 07/28/20 Rx diltiazem HCl 240 mg PO QAM 07/28/20 07/28/20 History furosemide 80 mg PO BIDM 07/28/20 07/28/20 History hydrocodone-acetaminophen 1 tab PO Q6H PRN 07/28/20 07/28/20 History methimazole 5 mg PO QAM 07/28/20 07/28/20 History potassium chloride [Klor-Con M20] 10 meq PO DAILY 07/28/20 07/28/20 History umeclidinium [Incruse Ellipta] 1 inh INHALATION DAILY 07/28/20 07/28/20 History Allergies Allergy/AdvReac Type Severity Reaction Status Date / Time salmon oil Allergy Severe HIVES-REDDENED Verified 07/28/20 15:29 ALL OVER Iodinated Contrast Media Allergy Intermediate HIVES-GI Verified 07/28/20 15:29 SYMPTOMS lisinopril Allergy Intermediate FAST HEART Verified 07/28/20 15:29 BEAT valsartan Allergy Intermediate FAST HEART Verified 07/28/20 15:29 BEAT bupropion AdvReac Mild GI SYMPTOMS Verified 07/28/20 15:29 enalapril AdvReac Mild GI SYMPTOMS Verified 07/28/20 15:29 escitalopram AdvReac Mild GI SYMPTOMS Verified 07/28/20 15:29 metoprolol AdvReac Mild LOWERS Verified 07/28/20 15:29 PULSE RATE verapamil AdvReac Mild GI UPSET, Verified 07/28/20 15:29 fast heart rate Past Med/Surg History Medical History Asthma Chronic diastolic CHF (congestive heart failure) COPD (chronic obstructive pulmonary disease) Diabetes mellitus, type 2 Diverticulosis Esophageal reflux Glaucoma of both eyes Hyperlipidemia Hypertension Lower GI bleed Nausea and vomiting after administration of anesthetic agent Nocturnal hypoxemia On home oxygen therapy 2L N/C at all times and 4 L N/C at night Osteoarthritis Paroxysmal atrial fibrillation Sleep apnea Surgical History H/O colonoscopy "04/2014 - diverticular disease throughout colon, internal hemorrhoids, polyp removed" History of appendectomy History of cardiac cath History of cholecystectomy History of dilatation and curettage History of esophagogastroduodenoscopy (EGD) "04/2014 - normal" History of incisional hernia repair History of tooth extraction all teeth Hx of small bowel obstruction "11/2017 - Seen [facility] - surgical intervention" Presence of Watchman left atrial appendage closure device 11/2019 @ [facility] Dr. 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 (work environment); Hx Alcohol Use: No Hx Substance Use: No Preferred Language: Australian Communication Ability: Effective Director Of Communications Required: No Beliefs That Will Affect Care: None marital status: / Current Living Situation: Alone Feels Safe at Home: Yes Assistive Devices: Oxygen - Continuous Review of Systems See HPI for pertinent positives & negatives. and A total of 10 systems reviewed and were otherwise negative Physical Exam Vital Signs Vital Signs - 24 hr 07/28/20 11:31 07/28/20 12:02 07/28/20 12:21 Temperature 37.5 C Temperature Source Oral Pulse Rate 97 H 88 Pulse Rate from SpO2 Sensor Respiratory Rate 16 24 Blood Pressure 147/78 H 117/81 Blood Pressure Mean 101 96 Pulse Oximetry 94 Oxygen Delivery Method Nasal Cannula Room Air Oxygen Flow Rate 2 Sepsis Recent Fever Within 48 Hours No Sepsis New/Unexplained Change in Mental Status N/A Sepsis Action Taken by Nursing No Action Required 07/28/20 12:26 07/28/20 12:30 07/28/20 12:31 Temperature Temperature Source Pulse Rate 88 87 91 H Pulse Rate from SpO2 Sensor Respiratory Rate 19 20 22 Blood Pressure 124/85 Blood Pressure Mean 95 Pulse Oximetry Oxygen Delivery Method Oxygen Flow Rate Sepsis Recent Fever Within 48 Hours Sepsis New/Unexplained Change in Mental Status Sepsis Action Taken by Nursing 07/28/20 13:00 07/28/20 13:30 07/28/20 14:00 Temperature Temperature Source Pulse Rate 81 87 82 Pulse Rate from SpO2 Sensor 92 H 83 Respiratory Rate 20 20 Blood Pressure 127/74 Blood Pressure Mean 92 Pulse Oximetry 99 98 Oxygen Delivery Method Oxygen Flow Rate Sepsis Recent Fever Within 48 Hours Sepsis New/Unexplained Change in Mental Status Sepsis Action Taken by Nursing 07/28/20 14:30 07/28/20 15:00 07/28/20 15:30 Temperature Temperature Source Pulse Rate 77 82 86 Pulse Rate from SpO2 Sensor 80 82 Respiratory Rate 21 21 19 Blood Pressure Blood Pressure Mean Pulse Oximetry 98 99 Oxygen Delivery Method Oxygen Flow Rate Sepsis Recent Fever Within 48 Hours Sepsis New/Unexplained Change in Mental Status Sepsis Action Taken by Nursing 07/28/20 15:32 07/28/20 16:00 07/28/20 16:30 Temperature Temperature Source Pulse Rate 87 84 89 Pulse Rate from SpO2 Sensor Respiratory Rate 18 16 15 Blood Pressure 131/89 Blood Pressure Mean 95 Pulse Oximetry Oxygen Delivery Method Oxygen Flow Rate Sepsis Recent Fever Within 48 Hours Sepsis New/Unexplained Change in Mental Status Sepsis Action Taken by Nursing 07/28/20 16:31 Temperature Temperature Source Pulse Rate 90 Pulse Rate from SpO2 Sensor Respiratory Rate 23 Blood Pressure 138/74 Blood Pressure Mean 96 Pulse Oximetry Oxygen Delivery Method Oxygen Flow Rate Sepsis Recent Fever Within 48 Hours Sepsis New/Unexplained Change in Mental Status Sepsis Action Taken by Nursing Constitutional: Vital signs reviewed. Eyes: Pupils are equal round reactive to light. Conjunctiva are noninjected. ENT: Pharynx is clear without erythema or exudate. Mucous membranes are moist. Neck supple without meningeal signs. Respiratory: Clear to auscultation bilaterally. Breath sounds are equal bilaterally. Cardiovascular: Regular rate and rhythm. No rubs or gallops. GI: Soft, nondistended with mild left lower quadrant tenderness. No guarding. Bowel sounds are present. Musculoskeletal: No peripheral edema. No lower extremity tenderness. Integumentary: No cyanosis. or jaundice. Neurological: The patient is awake and alert. No focal deficits. Psychiatric: Normal affect. Not anxious appearing. Course Administered Medications Discontinued Medications Hydrocodone Bitart/Acetaminophen (Hydrocodone/Acetamophen 5/325mg Tab) 1 tab PO ONE ONE Stop: 07/28/20 16:30 Last Admin: 07/28/20 16:46 Dose: 1 tab Documented by: [id number] Ciprofloxacin (Cipro / D5w) 400 mg in 200 mls @ 100 mls/hr IV NOW STA; Protocol Stop: 07/28/20 16:50 Last Admin: 07/28/20 15:06 Dose: 100 mls/hr Documented by: [id number] Metronidazole (Metronidazole 500 Mg Tab) 500 mg PO NOW STA Stop: 07/28/20 14:52 Last Admin: 07/28/20 15:06 Dose: 500 mg Documented by: [id number] Medical Decision Making Differential Diagnosis Diverticulitis, perforation, abscess, GI bleed, anemia Medical Records Attestation: I reviewed the patient's medical records. The patient was admitted in June for diverticulitis of the sigmoid colon and GI bleed. Home Medications Current Medication List: was personally reviewed by me Laboratory Data Result diagrams: 07/28/20 12:15 07/28/20 12:15 Lab Results 07/28/20 07/28/20 07/28/20 Range/Units 12:15 12:15 12:32 WBC 9.26 (4.8-10.8) K/uL RBC 3.82 L (4.2-5.4) M/uL Hgb 10.0 L (12.0-16.0) g/dL Hct 33.3 L (37-47) % MCV 87.2 (80-100) fL MCH 26.2 (25-34) pg MCHC 30.0 L (32-36) g/dL RDW Std Deviation 46.6 H (36.4-46.3) fL RDW Coeff of Jesika 14.8 H (11.5-14.5) % Plt Count 442 H (130-400) K/uL MPV 9.4 (7.4-10.4) fL Immature Gran % (Auto) 0.1 % Neut % (Auto) 68.2 % Lymph % (Auto) 17.3 % Lyon % (Auto) 10.6 % Eos % (Auto) 3.5 % Baso % (Auto) 0.3 % Neut # (Auto) 6.32 (1.4-6.5) K/uL Lymph # (Auto) 1.60 (1.2-3.4) K/uL Lyon # (Auto) 0.98 H (0.11-0.59) K/uL Eos # (Auto) 0.32 (0-0.5) K/uL Baso # (Auto) 0.03 (0-0.2) K/uL Immature Gran # (Auto) 0.01 (0.00-0.02) K/uL Sodium 141 (136-145) mmol/L Potassium 4.0 (3.5-5.1) mmol/L Chloride 104 (98-107) mmol/L Carbon Dioxide 34 H (21-32) mmol/L Anion Gap 3.0 (3-11) BUN 18 (7-18) mg/dl Creatinine 0.94 (0.6-1.2) mg/dl Est Cr Clr Drug Dosing 57.1 ml/min Est GFR ( Amer) 65.9 Est GFR (Non-Af Amer) 56.9 BUN/Creatinine Ratio 19.7 (10-20) Glucose 125 H (70-99) mg/dl Calcium 9.3 (8.5-10.1) mg/dl Total Bilirubin 0.3 (0.2-1) mg/dl AST 11 L (15-37) U/L ALT 15 (12-78) U/L Alkaline Phosphatase 132 H (45-117) U/L Total Protein 7.8 (6.4-8.2) gm/dl Albumin 3.2 L (3.4-5.0) gm/dl Globulin 4.6 H (2.5-4.0) gm/dl Albumin/Globulin Ratio 0.7 L (0.9-2) Lipase 51 L (73-393) U/L Blood Type O Positive Antibody Screen NEGATIVE Imaging Data Radiologist's Impression: CT SCAN OF THE ABDOMEN AND PELVIS WITHOUT IV CONTRAST CLINICAL HISTORY: Left lower quadrant abdominal pain. COMPARISON STUDY: Abdominal CT dated 06/11/2020. TECHNIQUE: CT scan of the abdomen and pelvis is performed from the lung bases to the proximal femora. Images are reviewed in the axial, sagittal, and coronal planes. IV contrast was not administered for this examination as per the referring clinician. Note that the examination was performed in suboptimal fashion without oral and IV contrast. A dose lowering technique was utilized adhering to the principles of ALARA. CT DOSE: 1620.00 mGy.cm FINDINGS: Lung bases: The heart is enlarged noting trace pericardial effusion. There are coronary artery calcifications. Emphysematous change is suspected. Foci of scarring/atelectasis are noted at the lung bases. There is no airspace consolidation or pleural effusion. There is a tiny hiatal hernia. Liver: The unenhanced liver is normal in size, contour, and attenuation. There is no intrahepatic biliary ductal dilatation. Gallbladder: Surgically absent. Spleen: Normal in size and attenuation. Pancreas: The unenhanced pancreas is moderately atrophic and grossly unremarkable. Adrenal glands: A 2 cm left adrenal adenoma is unchanged. The right adrenal gland is normal in appearance. Kidneys: The unenhanced kidneys demonstrate mild cortical atrophy and are without hydronephrosis. There are no renal calculi identified. A 1.9 cm exophytic cyst arises from the right upper pole. Abdominal vasculature: The abdominal aorta is normal in course and caliber noting moderate to advanced atherosclerotic calcification. Bowel: The there is moderate to advanced colonic diverticulosis. There is wall thickening with pericolonic inflammation and fluid seen involving the proximal sigmoid consistent with acute diverticulitis. No organized fluid collection is suggested to indicate abscess. A giant diverticulum is again noted in the sigmoid on image #294. No bowel obstruction is seen. Mild fecal retention is noted throughout the colon. The appendix is not clearly visualized. Peritoneum: There is no intraperitoneal free air or abdominal ascites. There is evidence of previous ventral hernia repair. A fat-containing supraumbilical hernia is seen on image #207. Lymphadenopathy: None. Pelvic viscera: The bladder and uterus are normal as visualized. A 1.8 cm simple cystic focus in the right ovary is unchanged. Skeletal structures: The skeletal structures are osteopenic. Sclerotic change is noted in the sacroiliac joints and pubic symphysis. There is mild to moderate lumbosacral spondylosis. A hemangioma is noted in the body of T12. No lytic or blastic lesions are seen. IMPRESSION: 1. Moderate to advanced colonic diverticulosis with evidence of acute diverticulitis involving the proximal sigmoid. 2. No intraperitoneal free air is seen and there is no organized fluid collection identified on this unenhanced examination to suggest abscess. 3. Cardiomegaly. 4. Additional findings as above. ACT 112: Negative or not required by law. Electronically signed by: Pepito Guillen M.D. 07/28/2020 1:48 PM MDM Narrative I did evaluate the patient as noted above. The patient is presenting with left lower quadrant pain and rectal bleeding. She has had similar symptoms in the past and was diagnosed with diverticulitis. IV access was established. I did order and review the patient's blood work as noted in the electronic medical record. Her white count is not elevated. Her hemoglobin is 10 up from 8 on her previous visit. Electrolytes and LFTs are unremarkable. I did order a CT of the abdomen and pelvis. I did review the images myself as well as the radiology report as described above. She does have diverticulitis involving the proximal sigmoid colon. I did discuss the test results with the patient. I did treat her with Cipro and Flagyl. I did recommend hospitalization for further care and evaluation and repeat H&H's. I did discuss the case with the hospitalist and case worker. Impression & Plan Diverticulitis, Lower gastrointestinal hemorrhage Discharge Plan Visit Data Chief Complaint: GI Assessment Stated Complaint: DIVERTICULITIS FLAREUP ED Provider: Hammad Peacock Discharge Problem: Diverticulitis, Lower gastrointestinal hemorrhage Patient Disposition: Being Evaluated by Hospitalist Forms Stand Alone Forms: My [facility] Prescriptions Prescriptions: No Action (DME) Oxygen Home Liters Per Minute See Rx Instructions .ROUTE .MEDSUPPLY Qty: 1 RF: 0 multivitamin Tablet 1 tab PO QAM RF: 0 promethazine 25 mg Tablet 25 mg PO Q6H PRN (Reason: nausea and vomiting) Qty: 60 RF: 0 dicyclomine 20 mg Tablet 20 mg PO BID 30 Days Qty: 60 RF: 0 atorvastatin 40 mg Tablet 40 mg PO HS RF: 0 zafirlukast 20 mg Tablet 20 mg PO QAM RF: 0 docusate sodium 100 mg Capsule 100 mg PO QAM RF: 0 omeprazole 20 mg Capsule,Delayed Release(Dr/Ec) 20 mg PO BID RF: 0 cholecalciferol (vitamin D3) [Vitamin D3] 1,000 unit Capsule 1,000 unit PO QAM RF: 0 ferrous sulfate [iron] 325 mg (65 mg iron) tablet 325 mg PO QAM RF: 0 glimepiride 4 mg tablet 4 mg PO QAM RF: 0 albuterol sulfate 2.5 mg /3 mL (0.083 %) Solution For Nebulization 2.5 mg INHALATION BID PRN (Reason: .WORSENING ASTHMA) RF: 0 Azopt 1 % Drops,Suspension 1 drp OPB BID RF: 0 Combivent Respimat 20-100 mcg/actuation Mist 1 puff INHALATION QID RF: 0 Lumigan 0.01 % drops 1 drp OPB HS RF: 0 polyethylene glycol 3350 [Miralax] 17 gram/dose Powder 17 g PO BID PRN (Reason: Constipation) RF: 0 albuterol sulfate [Ventolin HFA] 90 mcg/actuation HFA aerosol inhaler 2 puff INHALATION QID PRN (Reason: Shortness Of Breath) RF: 0 diltiazem HCl 240 mg capsule,extended release 24hr 240 mg PO QAM RF: 0 furosemide 40 mg tablet 80 mg PO BIDM RF: 0 methimazole 5 mg tablet 5 mg PO QAM RF: 0 potassium chloride [Klor-Con M20] 20 mEq tablet,ER particles/crystals 10 meq PO DAILY RF: 0 Incruse Ellipta 62.5 mcg/actuation Blister With Device 1 inh INHALATION DAILY RF: 0 hydrocodone-acetaminophen 5-325 mg Tablet 1 tab PO Q6H PRN (Reason: Pain) RF: 0 Referrals Referrals: Marcela Pinto MD [Primary Care Provider] -
[2020-07-28 12:37] LABS: Basophils # (auto) 0.03 K/uL (0-0.2); Basophils % (auto) 0.3 %; Eosinophils # (auto) 0.32 K/uL (0-0.5); Eosinophils % (auto) 3.5 %; Hematocrit (blood only) 33.3 % (37-47); Immature Granulocytes # (auto) 0.01 K/uL (0.00-0.02); Immature Granulocytes % (auto) 0.1 %; Lymphocytes % (auto) 17.3 %; Mean Corpuscular Hemoglobin 26.2 pg (25-34); Mean Corpuscular Volume 87.2 fL (80-100); Mean Platelet Volume 9.4 fL (7.4-10.4); Monocytes # (auto) 0.98 K/uL (0.11-0.59); Monocytes % (auto) 10.6 %; Neutrophils # (auto) 6.32 K/uL (1.4-6.5); Neutrophils % (auto) 68.2 %; Platelet Count 442 K/uL (130-400); RDW Coefficient of Variation 14.8 % (11.5-14.5); RDW Standard Deviation 46.6 fL (36.4-46.3); Red Blood Count 3.82 M/uL (4.2-5.4); White Blood Count 9.26 K/uL (4.8-10.8)
[2020-07-28 12:58] LABS: Albumin Level 3.2 gm/dl (3.4-5.0); BUN Creatinine Ratio 19.7 (10-20); Calcium 9.3 mg/dl (8.5-10.1); Creatinine Clr Calc Pharmacy 57.1 ml/min; Est GFR (African American) 65.9; Est GFR (Non-African American) 56.9
[2020-07-28 13:16] LABS: Albumin Globulin Ratio 0.7 (0.9-2); Bilirubin,Total 0.3 mg/dl (0.2-1); Globulin 4.6 gm/dl (2.5-4.0); Total Protein 7.8 gm/dl (6.4-8.2)
--- NOTE | 2020-07-28 13:49 | CT Scan Report ---
CT SCAN OF THE ABDOMEN AND PELVIS WITHOUT IV CONTRAST CLINICAL HISTORY: Left lower quadrant abdominal pain. COMPARISON STUDY: Abdominal CT dated 06/11/2020. TECHNIQUE: CT scan of the abdomen and pelvis is performed from the lung bases to the proximal femora. Images are reviewed in the axial, sagittal, and coronal planes. IV contrast was not administered for this examination as per the referring clinician. Note that the examination was performed in suboptim al fashion without oral and IV contrast. A dose lowering technique was utilized adhering to the [facility]. CT DOSE: 1620.00 mGy.cm FINDINGS: Lung bases: The heart is enlarged noting trace pericardial effusion. There are coronary artery calcif ications. Emphysematous change is suspected. Foci of scarring/atelectasis are noted at the lung bases . There is no airspace consolidation or pleural effusion. There is a tiny hiatal hernia. Liver: The unenhanced liver is normal in size, contour, and attenuation. There is no intrahepatic luz iary ductal dilatation. Gallbladder: Surgically absent. Spleen: Normal in size and attenuation. Pancreas: The unenhanced pancreas is moderately atrophic and grossly unremarkable. Adrenal glands: A 2 cm left adrenal adenoma is unchanged. The right adrenal gland is normal in appear ance. Kidneys: The unenhanced kidneys demonstrate mild cortical atrophy and are without hydronephrosis. The re are no renal calculi identified. A 1.9 cm exophytic cyst arises from the right upper pole. Abdominal vasculature: The abdominal aorta is normal in course and caliber noting moderate to advance d atherosclerotic calcification. Bowel: The there is moderate to advanced colonic diverticulosis. There is wall thickening with lety lonic inflammation and fluid seen involving the proximal sigmoid consistent with acute diverticulitis . No organized fluid collection is suggested to indicate abscess. A giant diverticulum is again noted in the sigmoid on image #294. No bowel obstruction is seen. Mild fecal retention is noted throughout the colon. The appendix is not clearly visualized. Peritoneum: There is no intraperitoneal free air or abdominal ascites. There is evidence of previous ventral hernia repair. A fat-containing supraumbilical hernia is seen on image #207. Lymphadenopathy: None. Pelvic viscera: The bladder and uterus are normal as visualized. A 1.8 cm simple cystic focus in the right ovary is unchanged. Skeletal structures: The skeletal structures are osteopenic. Sclerotic change is noted in the sacroil iac joints and pubic symphysis. There is mild to moderate lumbosacral spondylosis. A hemangioma is no lucho in the body of T12. No lytic or blastic lesions are seen. IMPRESSION: 1. Moderate to advanced colonic diverticulosis with evidence of acute diverticulitis involving the pr oximal sigmoid. 2. No intraperitoneal free air is seen and there is no organized fluid collection identified on this unenhanced examination to suggest abscess. 3. Cardiomegaly. 4. Additional findings as above. ACT 112: Negative or not required by law. Electronically signed by: Pepito Guillen M.D. 07/28/2020 1:48 PM
[2020-07-28] MEDS ORDERED: metroNIDAZOLE 500 MG TAB PO STA (14:51)
[2020-07-28] MEDS ORDERED: CIPROFLOXACIN / D5W 400 MG/200 ML BAG IV STA (14:51)
--- NOTE | 2020-07-28 15:18 | History & Physical Report ---
Date of Service July 28, 2020 Assessment & Plan (1) Acute diverticulitis of intestine: This is an 79yo F with a PMH of DM type II, asthma, COPD, chronic hypoxic respiratory failure on home O2, paroxysmal atrial fibrillation status post watchman procedure not anticoagulated due to history of GI bleeding, chronic diastolic CHF, GIST tumor under surveillance and other problems listed below who presents the ED for rectal bleeding and was found to have acute diverticulitis. -Afebrile, no leukocytosis -Recently admitted in late May-June for diverticulitis and completed course of antibiotic. Also treated with erythromycin and antiemetics for gastroparesis with significant improvement -Endorsing 2 episodes of BRBPR this morning prior to arrival. Hgb of 10 (baseline) - repeat CBC in AM -Continue Cipro and Flagyl, clear liquid diet, stool cultures, C diff pending -Routine GI consult -Pain control (2) Gastroparesis: Improved from previous admission. Continue antiemetics as needed (avoid Zofran while on Cipro -QT prolongation interaction), Prilosec and bowel regimen (3) COPD (chronic obstructive pulmonary disease): (4) Asthma: Continue duonebs, albuterol inhaler, Combivent QID, Incruse Ellipta, Zafirlukast (5) Diabetes mellitus, type 2: A1c of 6 in Jun 2020 -Hold home agents -SSI while in-patient -BSG AC HS (6) Paroxysmal atrial fibrillation: Not on anticoagulation due to history of GI bleeding -Continue diltiazem (7) Chronic diastolic CHF (congestive heart failure): Euvolemic on exam. Continue home dose Lasix DVT Ppx: SCDs Code status: FULL PCP: Blair Dispo: Admitted to [facility]. Plan to return home once medically stable. Patient seen in collaboration with Dr. Hutchinson. Please see addendum. History of Present Illness Chief Complaint: rectal bleeding Primary Care Provider: Marcela Pinto MD This is an 79yo F with a PMH of DM type II, asthma, COPD, chronic hypoxic respiratory failure on home O2, paroxysmal atrial fibrillation status post watchman procedure not anticoagulated due to history of GI bleeding, chronic diastolic CHF, GIST tumor under surveillance and other problems listed below who presents the ED for rectal bleeding. Recently admitted in late May-June for diverticulitis and gastroparesis. Has felt fine since then. Was seen in GI clinic on 07/26 with much improved symptoms. Instructed to continue PRN antiemetics, Prilosec, bowel regimen and possible follow up wt EUS due to history of GIST seen on EUS 2 years prior. This morning, patient had 2 episodes of bright red blood per rectum with small amount of loose stool. This was associated with left lower quadrant abdominal pain which is constant and worsening since this morning. Denies any associated fever and chills. No lightheadedness, visual changes, chest pain or palpitations, shortness of breath, nausea, vomiting, dysuria or constipation. Allergies Allergy/AdvReac Type Severity Reaction Status Date / Time salmon oil Allergy Severe HIVES-REDDENED Verified 07/28/20 15:29 ALL OVER Iodinated Contrast Media Allergy Intermediate HIVES-GI Verified 07/28/20 15:29 SYMPTOMS lisinopril Allergy Intermediate FAST HEART Verified 07/28/20 15:29 BEAT valsartan Allergy Intermediate FAST HEART Verified 07/28/20 15:29 BEAT bupropion AdvReac Mild GI SYMPTOMS Verified 07/28/20 15:29 enalapril AdvReac Mild GI SYMPTOMS Verified 07/28/20 15:29 escitalopram AdvReac Mild GI SYMPTOMS Verified 07/28/20 15:29 metoprolol AdvReac Mild LOWERS Verified 07/28/20 15:29 PULSE RATE verapamil AdvReac Mild GI UPSET, Verified 07/28/20 15:29 fast heart rate Home Medications Home Medications Medication Instructions Recorded Confirmed Type atorvastatin 40 mg PO HS 06/23/19 07/28/20 History cholecalciferol (vitamin D3) 1,000 unit PO QAM 06/23/19 07/28/20 History [Vitamin D3] docusate sodium 100 mg PO QAM 06/23/19 07/28/20 History omeprazole 20 mg PO BID 06/23/19 07/28/20 History zafirlukast 20 mg PO QAM 06/23/19 07/28/20 History Azopt 1 drp OPB BID 09/25/19 07/28/20 History Combivent Respimat 1 puff INHALATION QID 09/25/19 07/28/20 History Lumigan 1 drp OPB HS 09/25/19 07/28/20 History albuterol sulfate 2.5 mg INHALATION BID PRN 09/25/19 07/28/20 History albuterol sulfate [Ventolin HFA] 2 puff INHALATION QID PRN 09/25/19 07/28/20 History polyethylene glycol 3350 [Miralax] 17 g PO BID PRN 09/25/19 07/28/20 History Oxygen Home #1 ea 01/14/20 04/10/20 History ferrous sulfate 325 mg (65 mg 325 mg PO QAM tab 02/23/20 07/28/20 History iron) tablet glimepiride 4 mg tablet 4 mg PO QAM tab 02/23/20 07/28/20 History multivitamin 1 tab PO QAM 06/02/20 07/28/20 History dicyclomine 20 mg PO BID 30 Days #60 tab 06/16/20 07/28/20 Rx promethazine 25 mg PO Q6H PRN #60 tab 06/16/20 07/28/20 Rx diltiazem HCl 240 mg PO QAM 07/28/20 07/28/20 History furosemide 80 mg PO BIDM 07/28/20 07/28/20 History hydrocodone-acetaminophen 1 tab PO Q6H PRN 07/28/20 07/28/20 History methimazole 5 mg PO QAM 07/28/20 07/28/20 History potassium chloride [Klor-Con M20] 10 meq PO DAILY 07/28/20 07/28/20 History umeclidinium [Incruse Ellipta] 1 inh INHALATION DAILY 07/28/20 07/28/20 History Past Med/Surg History Medical History Asthma Chronic diastolic CHF (congestive heart failure) COPD (chronic obstructive pulmonary disease) Diabetes mellitus, type 2 Diverticulosis Esophageal reflux Glaucoma of both eyes Hyperlipidemia Hypertension Lower GI bleed Nausea and vomiting after administration of anesthetic agent Nocturnal hypoxemia On home oxygen therapy 2L N/C at all times and 4 L N/C at night Osteoarthritis Paroxysmal atrial fibrillation Sleep apnea Surgical History H/O colonoscopy "04/2014 - diverticular disease throughout colon, internal hemorrhoids, polyp removed" History of appendectomy History of cardiac cath History of cholecystectomy History of dilatation and curettage History of esophagogastroduodenoscopy (EGD) "04/2014 - normal" History of incisional hernia repair History of tooth extraction all teeth Hx of small bowel obstruction "11/2017 - Seen [facility] - surgical intervention" Presence of Watchman left atrial appendage closure device 11/2019 @ [facility] Dr. 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 Physical Exam Physical Exam: General Appearance: WD/WN, vitals as above, NAD, sitting up in bed, pleasant, conversing easily, obese Head: normocephalic, atraumatic Eyes: normal inspection, PERRL, conjunctivae normal, anicteric sclerae ENT: external ear and nose normal, oropharynx normal Neck: normal visual inspection, trachea midline, no thyromegaly Respiratory: normal respiratory effort, lungs clear to auscultation, no wheeze, rales, rhonchi. No accessory muscle use Cardiovascular: regular rate, rhythm, no murmur, normal peripheral pulses, no BLE edema. Vessels: no JVD Chest: normal inspection of chest Abdomen/GI: normal bowel sounds, soft, LLQ pain, no guarding, no hepatosplenomegaly Extremities/Musculoskeletal: no cyanosis or clubbing, extremities motor strength 5/5 Neurologic: PERRL, EOMI, accommodation nl, no face palsy, no dysarthria, CN's II-XI intact bilaterally and moves all extremities Psychiatric: A+Ox3, euthymic affect Skin: no rashes, normal color, warm/dry Results & Data Results & Data ([facility]) Vital Signs (Past 12 Hours) Vital Signs Temp Pulse Resp BP Pulse Ox 07/28/20 14:00 82 20 98 07/28/20 13:30 87 99 07/28/20 13:00 81 20 127/74 07/28/20 12:31 91 H 22 07/28/20 12:30 87 20 124/85 07/28/20 12:26 88 19 07/28/20 12:21 88 24 117/81 07/28/20 11:31 37.5 C 97 H 16 147/78 H 94 Laboratory Results Short CBC 07/28/20 Range/Units 12:15 WBC 9.26 (4.8-10.8) K/uL Hgb 10.0 L (12.0-16.0) g/dL Hct 33.3 L (37-47) % Plt Count 442 H (130-400) K/uL BMP 07/28/20 12:15 Sodium 141 Potassium 4.0 Chloride 104 Carbon Dioxide 34 H BUN 18 Creatinine 0.94 Glucose 125 H Calcium 9.3 Liver Function 07/28/20 Range/Units 12:15 Total Bilirubin 0.3 (0.2-1) mg/dl AST 11 L (15-37) U/L ALT 15 (12-78) U/L Alkaline Phosphatase 132 H (45-117) U/L Albumin 3.2 L (3.4-5.0) gm/dl Diagnostic Findings CT abd/pelvis: IMPRESSION: 1. Moderate to advanced colonic diverticulosis with evidence of acute diverticulitis involving the proximal sigmoid. 2. No intraperitoneal free air is seen and there is no organized fluid collection identified on this unenhanced examination to suggest abscess. 3. Cardiomegaly. 4. Additional findings as above. Supervising Physician Co-Signing Physician Notes I saw this patient with the physician assistant printer floor covering, I participated in the history, physical, review of systems, and physical exam. I reviewed the medications with the patient and the physician assistant printer floor covering and helped reconcile the medications. I helped take a detailed family and social history as well. I formulated the assessment and plan personally with the physician assistant printer floor covering and went over it with the patient. Physical Exam Gen-AAO x 3, NAD, Afebrile Head-NCAT, EOMI, PERRLA, Anicteric Sclera, No Posterior Pharyngeal Erythema Neck-Supple, No JVD, No Thyromegaly, No Masses, No LAD, No Bruits Lungs-Clear to Auscultation Bilaterally, No Rales, No Rhonchi, No Wheezing, No Crepitus Chest-No S4, +S1, +S2, No S3, No Murmurs, No Rubs, No Gallops, No Ectopy Abdomen-Soft, Bowel Sounds Present, Non Tender, Non Distended, No Hepatomegaly, No Splenomegaly, No Palpable Masses, No Rebound, No Rigidity, No Guarding Musculoskeletal-Full Range of Motion Bilaterally, No CVAT Extremities-No Cyanosis, No Clubbing, No Edema Nuero-Cranial Nerves II-XII grossly intact, Motor WNL, DTRs WNL, Strength WNL, Non Focal Psych-Normal Mood
[2020-07-28] MEDS ORDERED: NORCO 5/325MG HOMEPACK PO PRN (16:17)
[2020-07-28] MEDS ORDERED: HYDROCODONE/ACETAMOPHEN 5/325MG TAB PO ONE (16:29)
[2020-07-28] MEDS ORDERED: DEXTROSE 50% 50 ML SYRINGE IV PRN (18:25)
[2020-07-28] MEDS ORDERED: CARBOHYDRATES FOR HYPOGLYCEMIA PO PRN (18:25)
[2020-07-28] MEDS ORDERED: GLUCOSE 10 TABS/TUBE PO PRN (18:25)
[2020-07-28] MEDS ORDERED: GLUCOSE 40% GEL 15 GM TUBE PO PRN (18:25)
[2020-07-28] MEDS ORDERED: ALBUTEROL 0.083% NEBU SOLN 3 ML VIAL INH PRN (18:25)
[2020-07-28] MEDS ORDERED: GLUCAGON FOR INJ 1 MG VIAL SQ PRN (18:25)
[2020-07-28] MEDS ORDERED: ALBUTEROL HFA 8 GM INHALER INH PRN (18:25)
[2020-07-28] MEDS ORDERED: ACETAMINOPHEN 325 MG TAB PO PRN (18:25)
[2020-07-28 19:00] LABS: Appearance Urine Clear (Clear); Bacteria Urine Automated Negative (Negative); Bilirubin Urine Negative (Negative); Blood Urine 1+ (Negative); Cast Urine Automated 0 /lpf (0-5); Color Urine Yellow; Epithelial Cell Urine Auto 20-30 /lpf (0-5); Glucose Urine UA Negative (Negative); Ketones Urine Negative (Negative); Leukocyte Esterase Urine Negative (Negative); Nitrite Urine Negative (Negative); Protein Urine Negative (Negative); RBC Urine Automated 0-4 /hpf (0-4); Urobilinogen Urine Negative (Negative); pH Urine 7.5 (4.5-7.5)
[2020-07-28] MEDS ORDERED: IPRATROPIUM BROMIDE/ALBUTEROL respimat INH INH SCH (21:00)
[2020-07-28] MEDS: ATORVASTATIN 40 MG TAB PO SCH (21:01)
[2020-07-28] MEDS: BIMATOPROST 0.01% OP SOLN 2.5 ML BTL OP SCH (21:01)
[2020-07-28] MEDS: BRINZOLAMIDE (AZOPT) OPS 10 ML BTL OPB SCH (21:02)
[2020-07-28] MEDS: DICYCLOMINE HCL 20 MG TAB PO SCH (21:02)
[2020-07-28] MEDS: PANTOprazole 40 MG TAB PO SCH (21:02)
[2020-07-28] MEDS: INSULIN ASPART 100 UNITS/ML 3 ML PEN SC SCH (21:36)
[2020-07-28] MEDS: ALBUTEROL HFA 8 GM INHALER INH SCH (22:11)
[2020-07-28] MEDS: IPRATROPIUM BROMIDE HFA INHALER INH SCH (22:11)
[2020-07-28] MEDS: HYDROCODONE/ACETAMOPHEN 5/325MG TAB PO PRN (23:32)
[2020-07-28] MEDS: ONDANSETRON INJ 2 MG/ML 2 ML VIAL IV PRN (23:32)
[2020-07-29] MEDS ORDERED: CIPROFLOXACIN CONSULT ACTIVE PRN (03:00)
[2020-07-29] MEDS: SODIUM CHLORIDE 0.9% 1000ML 1,000 ML IV SCH ×3 (03:22→21:59)
[2020-07-29] MEDS: metroNIDAZOLE 500 MG/100 ML BAG IV SCH ×3 (03:22→18:33)
[2020-07-29 03:34] LABS: Hematocrit (blood only) 30.9 % (37-47); Hemoglobin 9.3 g/dL (12.0-16.0); Mean Corpuscular Hemoglobin 26.1 pg (25-34); Mean Corpuscular Hgb Conc 30.1 g/dL (32-36); Mean Corpuscular Volume 86.8 fL (80-100); Platelet Count 411 K/uL (130-400); RDW Coefficient of Variation 14.8 % (11.5-14.5); RDW Standard Deviation 47.4 fL (36.4-46.3); Red Blood Count 3.56 M/uL (4.2-5.4); White Blood Count 10.27 K/uL (4.8-10.8)
[2020-07-29 03:55] LABS: BUN Creatinine Ratio 14.4 (10-20); Calcium 9.1 mg/dl (8.5-10.1); Creatinine Clr Calc Pharmacy 61.6 ml/min; Est GFR (African American) 72.4; Est GFR (Non-African American) 62.5; Potassium 3.5 mmol/L (3.5-5.1)
[2020-07-29] MEDS: CIPROFLOXACIN / D5W 400 MG/200 ML BAG IV SCH ×2 (04:25→17:10)
[2020-07-29] MEDS: HYDROCODONE/ACETAMOPHEN 5/325MG TAB PO PRN ×3 (06:43→20:49)
[2020-07-29] MEDS: IPRATROPIUM BROMIDE HFA INHALER INH SCH ×4 (07:32→19:05)
[2020-07-29] MEDS: ALBUTEROL HFA 8 GM INHALER INH SCH ×4 (07:33→19:04)
[2020-07-29] MEDS: FERROUS SULFATE 325 MG TAB PO SCH (08:02)
[2020-07-29] MEDS: FUROSEMIDE 40 MG TAB PO SCH (08:03)
[2020-07-29] MEDS: dilTIAZem HCL 240 MG CAPCR PO SCH (08:03)
[2020-07-29] MEDS: methIMAzole 5 MG TABLET PO SCH (08:03)
[2020-07-29] MEDS: MULTIVITAMIN TAB PO SCH (08:03)
[2020-07-29] MEDS: ADVANCED PROBIOTIC 1250 MG CAPSULE PO SCH (08:04)
[2020-07-29] MEDS: DICYCLOMINE HCL 20 MG TAB PO SCH ×2 (08:04→20:49)
[2020-07-29] MEDS: POTASSIUM CHLORIDE 10 MEQ TABCR PO SCH (08:04)
[2020-07-29] MEDS: CHOLECALCIFEROL 1,000 UNITS 25 MCG TAB PO SCH (08:04)
[2020-07-29] MEDS: PANTOprazole 40 MG TAB PO SCH ×2 (08:05→20:51)
[2020-07-29] MEDS: UMECLIDINIUM BROMIDE 62.5MCG/BLISTER 7 PUFFS/INHALER INH SCH (08:05)
[2020-07-29] MEDS: BRINZOLAMIDE (AZOPT) OPS 10 ML BTL OPB SCH ×2 (08:06→20:51)
[2020-07-29] MEDS: INSULIN ASPART 100 UNITS/ML 3 ML PEN SC SCH ×4 (08:07→21:10)
--- NOTE | 2020-07-29 13:05 | Gastrointestinal Consultation ---
Date of Consultation July 29, 2020 Assessment & Plan (1) Acute diverticulitis of intestine: Recommend continuing IV Cipro and Flagyl therapy Will advance diet to full liquids at patient request If symptoms worsen, consider surgical consultation, however, she is a poor surgical candidate Followup with [facility] GI as scheduled for EUS of Gastric GIST History of Present Illness Reason for Consultation: Recurrent Diverticulitis Attending Physician: Katerin Unger MD History of Present Illness Nina Harrington is a pleasant 79 yo CF who presented to the ER last night with complaints of LLQ abdominal pain and BRBPR. She states that she was found to have Diverticulitis on CT imaging, and was subsequently admitted and place on IV Cipro/Flagyl therapy. She was previously admitted in late May, with Diverticulitis, and was seen by the [facility] GI team at that time. She was also seen by Dr. Pugh due to the recurrent nature of her diverticulitis, on that admission, however, he did not feel that she required surgery at that time, as well as the fact that she is a poor surgical candidate, with many comorbidities. It should be noted that she did undergo both a normal EGD and a colonoscopy which showed only diverticulosis, and a small benign polyp with Dr. Lloyd in April 2020. At the time that I saw the patient, she was feeling slightly improved. She states that she did have a few BM's last night with blood, however, her H/H has been relatively stable when compared to her previous admissions. She does continue to have mild LLQ abdominal pain, rated at 4/10 in intensity, aching, non- radiating without alleviating or exacerbating factors. She denies any fevers, chills, nausea, vomiting, hematemesis, melena or hematochezia, and has no further complaints. Allergies Allergy/AdvReac Type Severity Reaction Status Date / Time salmon oil Allergy Severe HIVES-REDDENED Verified 07/28/20 15:29 ALL OVER Iodinated Contrast Media Allergy Intermediate HIVES-GI Verified 07/28/20 15:29 SYMPTOMS lisinopril Allergy Intermediate FAST HEART Verified 07/28/20 15:29 BEAT valsartan Allergy Intermediate FAST HEART Verified 07/28/20 15:29 BEAT bupropion AdvReac Mild GI SYMPTOMS Verified 07/28/20 15:29 enalapril AdvReac Mild GI SYMPTOMS Verified 07/28/20 15:29 escitalopram AdvReac Mild GI SYMPTOMS Verified 07/28/20 15:29 metoprolol AdvReac Mild LOWERS Verified 07/28/20 15:29 PULSE RATE verapamil AdvReac Mild GI UPSET, Verified 07/28/20 15:29 fast heart rate Home Medications Home Medications Medication Instructions Recorded Confirmed Type atorvastatin 40 mg PO HS 06/23/19 07/28/20 History cholecalciferol (vitamin D3) 1,000 unit PO QAM 06/23/19 07/28/20 History [Vitamin D3] docusate sodium 100 mg PO QAM 06/23/19 07/28/20 History omeprazole 20 mg PO BID 06/23/19 07/28/20 History zafirlukast 20 mg PO QAM 06/23/19 07/28/20 History Azopt 1 drp OPB BID 09/25/19 07/28/20 History Combivent Respimat 1 puff INHALATION QID 09/25/19 07/28/20 History Lumigan 1 drp OPB HS 09/25/19 07/28/20 History albuterol sulfate 2.5 mg INHALATION BID PRN 09/25/19 07/28/20 History albuterol sulfate [Ventolin HFA] 2 puff INHALATION QID PRN 09/25/19 07/28/20 History polyethylene glycol 3350 [Miralax] 17 g PO BID PRN 09/25/19 07/28/20 History Oxygen Home #1 ea 01/14/20 07/28/20 History ferrous sulfate 325 mg (65 mg 325 mg PO QAM tab 02/23/20 07/28/20 History iron) tablet glimepiride 4 mg tablet 2 mg PO QAM tab 02/23/20 07/28/20 History multivitamin 1 tab PO QAM 06/02/20 07/28/20 History dicyclomine 20 mg PO BID 30 Days #60 tab 06/16/20 07/28/20 Rx promethazine 25 mg PO Q6H PRN #60 tab 06/16/20 07/28/20 Rx diltiazem HCl 240 mg PO QAM 07/28/20 07/28/20 History furosemide 40 mg PO DAILY 07/28/20 07/28/20 History hydrocodone-acetaminophen 1 tab PO Q6H PRN 07/28/20 07/28/20 History lactobacillus combination no.4 3,000 mmu cells PO DAILY 07/28/20 07/28/20 History [Probiotic] methimazole 5 mg PO QAM 07/28/20 07/28/20 History potassium chloride [Klor-Con M20] 10 meq PO DAILY 07/28/20 07/28/20 History umeclidinium [Incruse Ellipta] 1 inh INHALATION DAILY 07/28/20 07/28/20 History Patient History Medical History Asthma Chronic diastolic CHF (congestive heart failure) COPD (chronic obstructive pulmonary disease) Diabetes mellitus, type 2 Diverticulosis Esophageal reflux Glaucoma of both eyes Hyperlipidemia Hypertension Lower GI bleed Nausea and vomiting after administration of anesthetic agent Nocturnal hypoxemia On home oxygen therapy 2L N/C at all times and 4 L N/C at night Osteoarthritis Paroxysmal atrial fibrillation Sleep apnea Surgical History H/O colonoscopy "04/2014 - diverticular disease throughout colon, internal hemorrhoids, polyp removed" History of appendectomy History of cardiac cath History of cholecystectomy History of dilatation and curettage History of esophagogastroduodenoscopy (EGD) "04/2014 - normal" History of incisional hernia repair History of tooth extraction all teeth Hx of small bowel obstruction "11/2017 - Seen [facility] - surgical intervention" Presence of Watchman left atrial appendage closure device 11/2019 @ [facility] [address]. Velez Status post tonsillectomy and adenoidectomy Status post tubal ligation Family History Mother Breast cancer Father Heart disease Brother COPD (chronic obstructive pulmonary disease) Aunt Diabetes Son JORDAN (obstructive sleep apnea) Daughter Asthma Other No family history of adverse response to anesthesia No pertinent family history in first degree relatives 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 Smoking Status: Never smoker Second Hand Exposure: No; Do You Dip or Chew Tobacco: No; Tobacco Cessation Education Requested by Patient: No Hx Alcohol Use: No Hx Substance Use: No Preferred Language: Armenian Communication Ability: Effective Bank President Required: No Beliefs That Will Affect Care: None marital status: / Current Living Situation: Alone Other Information That Helps Us Care for You: No Feels Safe at Home: Yes Safety Concerns: Feels Safe At This Time Assistive Devices: Oxygen - Continuous Review of Systems Review of Systems: All systems reviewed & are unremarkable except as noted in HPI & below Physical Exam Constitutional: + obese Eyes: PERRL, conjunctivae normal, anicteric sclerae ENMT: external ear and nose normal, oropharynx normal Neck: trachea midline, no thyromegaly Respiratory: normal respiratory effort, lungs clear to auscultation Cardiovascular: RRR, no murmur, no edema Gastrointestinal (Abdomen): Inspection/Auscultation: abdomen normal to inspection and normal bowel sounds; abdomen not distended Percussion/Palpation: + abdomen tender (LLQ) and abdomen soft; no guarding and abdomen not rigid Skin: no rashes, warm and dry Psychiatric: A+Ox3, euthymic affect Results & Data ([facility]) Vital Signs (Past 12 Hours) Vital Signs Temp Pulse Pulse Resp BP Pulse Ox 07/29/20 11:30 74 16 98 07/29/20 11:21 37.2 C 74 16 120/59 L 98 07/29/20 07:41 36.7 C 78 16 133/70 98 07/29/20 07:32 76 16 98 07/29/20 07:17 58 L 07/29/20 03:33 37.1 C 82 14 104/64 98 PG Care Time/CCT Total # of Minutes Spent Total Time Spent with Patient: Total time spent is greater than 50% in coordination of care (as documented) at patient's floor/unit and/or counseling patient: Coding Level of Care Code 28254 Initial Inpt Care Lvl 3 Diagnoses Acute diverticulitis of intestine K57.92
--- NOTE | 2020-07-29 14:32 | Hospitalist Progress Note ---
Date of Service July 29, 2020 Assessment & Plan (1) Acute diverticulitis of intestine: This is an 79yo F with a PMH of DM type II, asthma, COPD, chronic hypoxic respiratory failure on home O2, paroxysmal atrial fibrillation status post watchman procedure not anticoagulated due to history of GI bleeding, chronic diastolic CHF, GIST tumor under surveillance and other problems listed below who presents the ED for rectal bleeding and was found to have acute diverticulitis. -Afebrile, no leukocytosis -Recently admitted in late May-June for diverticulitis and completed course of antibiotic. Also treated with erythromycin and antiemetics for gastroparesis with significant improvement -Endorsing 2 episodes of BRBPR this morning prior to arrival. Hgb of 10 (baseline) - repeat CBC in AM -Has had another bloody bowel movement last night -Has been feeling a lot better since admission with minimal pain involving the left lower quadrant -Continue Cipro and Flagyl, clear liquid diet, stool cultures, -C. difficile is negative -Routine GI consult -appreciate input and recommendation -Pain is reasonably controlled We will start clears orally (2) Gastroparesis: Improved from previous admission. Continue antiemetics as needed (avoid Zofran while on Cipro -QT prolongation interaction), Prilosec and bowel regimen (3) COPD (chronic obstructive pulmonary disease): No acute exacerbation (4) Asthma: Continue duonebs, albuterol inhaler, Combivent QID, Incruse Ellipta, Zafirlukast (5) Diabetes mellitus, type 2: A1c of 6 in Jun 2020 -Hold home agents -SSI while in-patient -BSG HS (6) Paroxysmal atrial fibrillation: Not on anticoagulation due to history of GI bleeding -Continue diltiazem (7) Chronic diastolic CHF (congestive heart failure): Euvolemic on exam. Continue home dose Lasix DVT Ppx: SCDs Code status: FULL PCP: Blair Dispo: Admitted to [facility]. Plan to return home once medically stable. Admission and Anticipated Discharge Date Admission Date: July 28, 2020 Subjective 07/29/2020 The patient was seen and examined in medical telemetry unit She has had a large bowel movement which was bloody last night No bowel movement this morning Her abdominal pain is improved and denies any nausea and or vomiting Review of Systems Review of Systems: All systems reviewed and are unremarkable except as noted below except as noted below Gastrointestinal: + abdominal pain and + blood in stools (Happened last night but no bowel movement since this morning); no bloating, no nausea and no vomiting Physical Exam Physical Exam: Lying in bed comfortably Constitutional: well developed, well nourished, + ill appearing and + obese; no acute distress Eyes: PERRL, conjunctivae normal, anicteric sclerae ENMT: external ear and nose normal, oropharynx normal Neck: trachea midline, no thyromegaly Respiratory: normal respiratory effort; no respiratory distress Auscultation: lungs clear to auscultation bilaterally Cardiovascular: Rate/Rhythm: regular rate and regular rhythm Heart Sounds: no murmur Gastrointestinal (Abdomen): Inspection/Auscultation: abdomen normal to inspection and + abdomen distended Percussion/Palpation: + abdomen tender (Left lower quadrant) and abdomen soft; no guarding and abdomen not rigid Musculoskeletal: No acute arthritis in any joint Neurologic: moves all extremities; no focal motor deficits Psychiatric: A+Ox3, euthymic affect Lymphatic: no cervical or axillary lymphadenopathy Results & Data Results & Data ([facility]) Vital Signs (Past 12 Hours) Vital Signs Temp Pulse Pulse Resp BP Pulse Ox 07/29/20 11:30 74 16 98 07/29/20 11:21 37.2 C 74 16 120/59 L 98 07/29/20 07:41 36.7 C 78 16 133/70 98 07/29/20 07:32 76 16 98 07/29/20 07:17 58 L 07/29/20 03:33 37.1 C 82 14 104/64 98 Laboratory Results Short CBC 07/29/20 Range/Units 03:20 WBC 10.27 (4.8-10.8) K/uL Hgb 9.3 L (12.0-16.0) g/dL Hct 30.9 L (37-47) % Plt Count 411 H (130-400) K/uL BMP 07/29/20 03:20 Sodium 141 Potassium 3.5 Chloride 106 Carbon Dioxide 32 BUN 13 Creatinine 0.87 Glucose 108 H Calcium 9.1 Urine 07/28/20 Range/Units 18:45 Urine Color Yellow Urine Appearance Clear (Clear) Urine pH 7.5 (4.5-7.5) Ur Specific [place] 1.010 (1.000-1.030) Urine Protein Negative (Negative) Urine Glucose (UA) Negative (Negative) Medications Administered Current Inpatient Medications Acetaminophen (Acetaminophen 325 Mg Tab) 650 mg PO Q4H PRN PRN Reason: Pain or Fever Stop: 08/27/20 18:24 Last Admin: 07/28/20 20:59 Dose: 650 mg Documented by: Hydrocodone Bitart/Acetaminophen (Hydrocodone/Acetamophen 5/325mg Tab) 1 tab PO Q6H PRN PRN Reason: Pain Stop: 08/11/20 21:27 Last Admin: 07/29/20 14:20 Dose: 1 tab Documented by: Albuterol (Albuterol Hfa 8 Gm Inhaler) 2 puffs INH QID PRN PRN Reason: Shortness Of Breath Stop: 08/27/20 18:24 Albuterol (Albuterol 0.083% Nebu Soln 3 Ml Vial) 2.5 mg INH BID PRN PRN Reason: .WORSENING ASTHMA Stop: 08/27/20 18:24 Albuterol (Albuterol Hfa 8 Gm Inhaler) 1 puffs INH QIDR ANDREA Stop: 08/27/20 18:59 Last Admin: 07/29/20 11:28 Dose: 1 puffs Documented by: Atorvastatin Calcium (Atorvastatin 40 Mg Tab) 40 mg PO HS ANDREA Stop: 08/27/20 20:59 Last Admin: 07/28/20 21:01 Dose: 40 mg Documented by: Bimatoprost (Bimatoprost 0.01% Op Soln 2.5 Ml Btl) 1 drops OP HS ANDREA Stop: 08/27/20 20:59 Last Admin: 07/28/20 21:01 Dose: 1 drops Documented by: Brinzolamide (Brinzolamide (Azopt) Ops 10 Ml Btl) 1 drops OPB BID ANDREA Stop: 08/27/20 20:59 Last Admin: 07/29/20 08:06 Dose: 1 drops Documented by: Dextrose (Dextrose 50% 50 Ml Syringe) 25 - 50 ml IV UD PRN; Protocol PRN Reason: Hypoglycemia Protocol Stop: 08/27/20 18:24 Dicyclomine HCl (Dicyclomine Hcl 20 Mg Tab) 20 mg PO BID ANDREA Stop: 08/27/20 20:59 Last Admin: 07/29/20 08:04 Dose: 20 mg Documented by: Diltiazem HCl (Diltiazem Hcl 240 Mg Capcr) 240 mg PO QAM [facility] Stop: 08/28/20 08:59 Last Admin: 07/29/20 08:03 Dose: 240 mg Documented by: Ferrous Sulfate (Ferrous Sulfate 325 Mg Tab) 325 mg PO QAM ANDREA Stop: 08/28/20 08:59 Last Admin: 07/29/20 08:02 Dose: 325 mg Documented by: Furosemide (Furosemide 40 Mg Tab) 40 mg PO DAILY ANDREA Stop: 08/28/20 08:59 Last Admin: 07/29/20 08:03 Dose: 40 mg Documented by: Glucagon (Glucagon For Inj 1 Mg Vial) 1 mg SQ UD PRN; Protocol PRN Reason: Hypoglycemia Protocol Stop: 08/27/20 18:24 Glucose (Glucose 10 Tabs/Tube) 4 - 8 tabs PO UD PRN; Protocol PRN Reason: Hypoglycemia Protocol Stop: 08/27/20 18:24 Glucose (Glucose 40% Gel 15 Gm Tube) 15 - 30 gm PO UD PRN; Protocol PRN Reason: Hypoglycemia Protocol Stop: 08/27/20 18:24 Ciprofloxacin (Cipro / D5w) 400 mg in 200 mls @ 100 mls/hr IV Q12H [facility]; Protocol Stop: 08/08/20 04:59 Last Infusion: 07/29/20 06:25 Dose: Infused Documented by: Metronidazole (Flagyl) 500 mg in 100 mls @ 100 mls/hr IV Q8H [facility] Stop: 08/08/20 02:59 Last Infusion: 07/29/20 12:02 Dose: Infused Documented by: Sodium Chloride (Nss 1000ml) 1,000 mls @ 100 mls/hr IV .Q10H ANDREA Stop: 08/28/20 02:59 Last Admin: 07/29/20 12:34 Dose: 100 mls/hr Documented by: Insulin Aspart (Insulin Aspart 100 Units/Ml 3 Ml Pen) 0 units SC ACHS ANDREA Stop: 08/27/20 20:59 Last Admin: 07/29/20 12:36 Dose: Not Given Documented by: Ipratropium [place] (Ipratropium [place] Hfa Inhaler) 1 puffs INH QIDR ANDREA Stop: 08/27/20 18:59 Last Admin: 07/29/20 11:28 Dose: 1 puffs Documented by: Lactobacillus Acidoph/Casei/Rhamnos (Advanced Probiotic 1250 Mg Capsule) 2 cap PO DAILY ANDREA Stop: 08/28/20 08:59 Last Admin: 07/29/20 08:04 Dose: 2 cap Documented by: Methimazole (Methimazole 5 Mg Tablet) 5 mg PO QAM ANDREA Stop: 08/28/20 08:59 Last Admin: 07/29/20 08:03 Dose: 5 mg Documented by: Miscellaneous (Carbohydrates For Hypoglycemia ) 15 - 30 gm PO UD PRN PRN Reason: Hypoglycemia Protocol Stop: 08/27/20 18:24 Miscellaneous (Zafirlukast 20 Mg: Order Awaiting Action) 1 ea N/A QS ANDREA Stop: 08/27/20 18:59 Last Admin: 07/29/20 08:05 Dose: Not Given Documented by: Miscellaneous Information (Ciprofloxacin Consult Active) 1 ea N/A UD PRN PRN Reason: Consult Stop: 08/28/20 02:59 Multivitamins (Multivitamin Tab) 1 tab PO QAM ANDREA Stop: 08/28/20 08:59 Last Admin: 07/29/20 08:03 Dose: 1 tab Documented by: Ondansetron HCl (Ondansetron Inj 2 Mg/Ml 2 Ml Vial) 4 mg IV Q6H PRN PRN Reason: Nausea Stop: 08/27/20 18:24 Last Admin: 07/28/20 23:32 Dose: 4 mg Documented by: Pantoprazole Sodium (Pantoprazole 40 Mg Tab) 40 mg PO BID ANDREA Stop: 08/27/20 20:59 Last Admin: 07/29/20 08:05 Dose: 40 mg Documented by: Potassium Chloride (Potassium Chloride 10 Meq Tabcr) 10 meq PO DAILY ANDREA Stop: 08/28/20 08:59 Last Admin: 07/29/20 08:04 Dose: 10 meq Documented by: Promethazine HCl (Promethazine Hcl 25 Mg Tab) 25 mg PO Q6H PRN PRN Reason: nausea and vomiting Stop: 08/27/20 18:24 Umeclidinium [place] (Umeclidinium [place] 62.5mcg/Blister 7 Puffs/Inhaler) 1 puffs INH DAILY ANDREA Stop: 08/28/20 08:59 Last Admin: 07/29/20 08:05 Dose: 1 puffs Documented by: Vitamin D (Cholecalciferol 1,000 Units 25 Mcg Tab) 1,000 units PO QAM [facility] Stop: 08/28/20 08:59 Last Admin: 07/29/20 08:04 Dose: 1,000 units Documented by:
[2020-07-29] MEDS: ATORVASTATIN 40 MG TAB PO SCH (20:49)
[2020-07-29] MEDS: BIMATOPROST 0.01% OP SOLN 2.5 ML BTL OP SCH (20:51)
[2020-07-30] MEDS: PROMETHAZINE HCL 25 MG TAB PO PRN (03:24)
[2020-07-30] MEDS: metroNIDAZOLE 500 MG/100 ML BAG IV SCH ×3 (03:25→20:21)
[2020-07-30] MEDS: HYDROCODONE/ACETAMOPHEN 5/325MG TAB PO PRN ×3 (04:00→20:29)
[2020-07-30] MEDS: CIPROFLOXACIN / D5W 400 MG/200 ML BAG IV SCH ×2 (04:51→17:56)
[2020-07-30 05:52] LABS: Basophils # (auto) 0.03 K/uL (0-0.2); Basophils % (auto) 0.4 %; Eosinophils # (auto) 0.48 K/uL (0-0.5); Eosinophils % (auto) 6.3 %; Hematocrit (blood only) 26.7 % (37-47); Immature Granulocytes # (auto) 0.01 K/uL (0.00-0.02); Immature Granulocytes % (auto) 0.1 %; Lymphocytes # (auto) 2.23 K/uL (1.2-3.4); Lymphocytes % (auto) 29.1 %; Mean Corpuscular Hemoglobin 26.1 pg (25-34); Mean Corpuscular Volume 87.3 fL (80-100); Mean Platelet Volume 8.9 fL (7.4-10.4); Monocytes % (auto) 11.7 %; Neutrophils # (auto) 4.02 K/uL (1.4-6.5); Neutrophils % (auto) 52.4 %; Platelet Count 338 K/uL (130-400); RDW Coefficient of Variation 14.7 % (11.5-14.5); RDW Standard Deviation 46.7 fL (36.4-46.3); Red Blood Count 3.06 M/uL (4.2-5.4); White Blood Count 7.67 K/uL (4.8-10.8)
[2020-07-30 06:12] LABS: BUN Creatinine Ratio 12.4 (10-20); Calcium 8.7 mg/dl (8.5-10.1); Creatinine Clr Calc Pharmacy 71.6 ml/min; Est GFR (African American) 86.6; Est GFR (Non-African American) 74.8; Potassium 3.5 mmol/L (3.5-5.1)
[2020-07-30] MEDS: ALBUTEROL HFA 8 GM INHALER INH SCH ×4 (07:11→19:02)
[2020-07-30] MEDS: IPRATROPIUM BROMIDE HFA INHALER INH SCH ×4 (07:11→19:02)
[2020-07-30] MEDS: BRINZOLAMIDE (AZOPT) OPS 10 ML BTL OPB SCH ×2 (08:09→20:32)
[2020-07-30] MEDS: POTASSIUM CHLORIDE 10 MEQ TABCR PO SCH (08:10)
[2020-07-30] MEDS: MULTIVITAMIN TAB PO SCH (08:10)
[2020-07-30] MEDS: FUROSEMIDE 40 MG TAB PO SCH (08:10)
[2020-07-30] MEDS: dilTIAZem HCL 240 MG CAPCR PO SCH (08:10)
[2020-07-30] MEDS: FERROUS SULFATE 325 MG TAB PO SCH (08:11)
[2020-07-30] MEDS: methIMAzole 5 MG TABLET PO SCH (08:11)
[2020-07-30] MEDS: DICYCLOMINE HCL 20 MG TAB PO SCH ×2 (08:11→20:32)
[2020-07-30] MEDS: ADVANCED PROBIOTIC 1250 MG CAPSULE PO SCH (08:11)
[2020-07-30] MEDS: PANTOprazole 40 MG TAB PO SCH ×2 (08:12→20:33)
[2020-07-30] MEDS: CHOLECALCIFEROL 1,000 UNITS 25 MCG TAB PO SCH (08:12)
[2020-07-30] MEDS: UMECLIDINIUM BROMIDE 62.5MCG/BLISTER 7 PUFFS/INHALER INH SCH (08:12)
[2020-07-30] MEDS: INSULIN ASPART 100 UNITS/ML 3 ML PEN SC SCH ×4 (09:00→21:23)
--- NOTE | 2020-07-30 09:16 | Gastroenterology Progress Note ---
Date of Service July 30, 2020 Assessment & Plan (1) Acute diverticulitis of intestine: Doing well at present Continue current therapy Advance diet to low residue as tolerated [facility] to resume care in the AM Admission and Anticipated Discharge Date Admission Date: July 28, 2020 Subjective Doing better today. Less LLQ abdominal pain, rates it at 3/10 in intensity, non-radiating, without exacerbating factors. She states she did have a single BM last night with blood. She has tolerated PO intake. She denies any fevers, chills, nausea, vomiting, diarrhea, hematemesis, melena or hematochezia. She has no further complaints. Review of Systems Review of Systems: All systems reviewed & are unremarkable except as noted in HPI & below Physical Exam Constitutional: + obese; no acute distress Eyes: + anicteric sclerae Respiratory: normal respiratory effort; no respiratory distress and no labored breathing Cardiovascular: Rate/Rhythm: regular rate and regular rhythm Gastrointestinal (Abdomen): Inspection/Auscultation: abdomen normal to inspection and normal bowel sounds; abdomen not distended Percussion/Palpation: + abdomen tender (LLQ) and abdomen soft; no guarding and abdomen not rigid Psychiatric: A+Ox3, euthymic affect Results & Data Results & Data ([facility]) Vital Signs (Past 12 Hours) Vital Signs Temp Pulse Pulse Resp BP Pulse Ox 07/30/20 07:20 63 07/30/20 07:13 77 14 99 07/30/20 06:25 36.6 C 60 18 109/63 97 07/30/20 03:11 36.5 C 75 18 123/65 98 07/29/20 23:00 63 07/29/20 22:07 36.9 C 83 18 122/75 97 PG Care Time/CCT Total # of Minutes Spent Total Time Spent with Patient: Total time spent is greater than 50% in coordination of care (as documented) at patient's floor/unit and/or counseling patient: Coding Level of Care Code 82664 Subseq Hosp Care Lvl 3 Diagnoses Acute diverticulitis of intestine K57.92
[2020-07-30] MEDS ORDERED: POTASSIUM CHLORIDE 20 MEQ TABCR PO STA (11:42)
--- NOTE | 2020-07-30 11:42 | Hospitalist Progress Note ---
Date of Service July 30, 2020 Assessment & Plan (1) Acute diverticulitis of intestine: This is an 79yo F with a PMH of DM type II, asthma, COPD, chronic hypoxic respiratory failure on home O2, paroxysmal atrial fibrillation status post watchman procedure not anticoagulated due to history of GI bleeding, chronic diastolic CHF, GIST tumor under surveillance and other problems listed below who presents the ED for rectal bleeding and was found to have acute diverticulitis. -Afebrile, no leukocytosis -Recently admitted in late May-June for diverticulitis and completed course of antibiotic. Also treated with erythromycin and antiemetics for gastroparesis with significant improvement -Endorsing 2 episodes of BRBPR this morning prior to arrival. Hgb of 10 (baseline) - repeat CBC in AM -Has had another bloody bowel movement last night -Has been feeling a lot better since admission with minimal pain involving the left lower quadrant -Continue Cipro and Flagyl, clear liquid diet, stool cultures, -C. difficile is negative -Routine GI consult -appreciate input and recommendation -Pain is reasonably controlled We will start clears orally-we will advance diet as tolerated Hemoglobin is dropped to 8.0-remains stable as compared with hemoglobin of last 2 months We will continue current antibiotics (2) Gastroparesis: Improved from previous admission. Continue antiemetics as needed (avoid Zofran while on Cipro -QT prolongation interaction), Prilosec and bowel regimen No complaints of nausea and/or vomiting (3) COPD (chronic obstructive pulmonary disease): No acute exacerbation (4) Asthma: Continue duonebs, albuterol inhaler, Combivent QID, Incruse Ellipta, Zafirlukast (5) Diabetes mellitus, type 2: A1c of 6 in Jun 2020 -Hold home agents -SSI while in-patient -BSG AC HS (6) Paroxysmal atrial fibrillation: Not on anticoagulation due to history of GI bleeding -Continue diltiazem (7) Chronic diastolic CHF (congestive heart failure): Euvolemic on exam. Continue home dose Lasix DVT Ppx: SCDs Code status: FULL PCP: Blair Dispo: Admitted to [facility]. Plan to return home once medically stable. Admission and Anticipated Discharge Date Admission Date: July 28, 2020 Subjective 07/29/2020 The patient was seen and examined in medical telemetry unit She has had a large bowel movement which was bloody last night No bowel movement this morning Her abdominal pain is improved and denies any nausea and or vomiting 07/30/2020 The patient was seen and examined in medical telemetry unit She has been feeling a lot better with minimal discomfort in the left lower quadrant She has had very small amount of blood per rectum Feels much better otherwise and has been tolerating clears orally Review of Systems Review of Systems: All systems reviewed and are unremarkable except as noted below except as noted below Gastrointestinal: + abdominal pain and + blood in stools (Happened last night but no bowel movement since this morning); no bloating, no nausea and no vomiting Physical Exam Physical Exam: Lying in bed comfortably Constitutional: well developed, well nourished, + ill appearing and + obese; no acute distress Eyes: PERRL, conjunctivae normal, anicteric sclerae ENMT: external ear and nose normal, oropharynx normal Neck: trachea midline, no thyromegaly Respiratory: normal respiratory effort; no respiratory distress Auscultation: lungs clear to auscultation bilaterally Cardiovascular: Rate/Rhythm: regular rate and regular rhythm Heart Sounds: no murmur Gastrointestinal (Abdomen): Inspection/Auscultation: abdomen normal to inspection, + abdomen distended and normal bowel sounds Percussion/Palpation: + abdomen tender (Left lower quadrant) and abdomen soft; no guarding and abdomen not rigid Musculoskeletal: No acute arthritis involving any joint Neurologic: moves all extremities; no focal motor deficits Psychiatric: A+Ox3, euthymic affect Lymphatic: no cervical or axillary lymphadenopathy Results & Data Results & Data ([facility]) Vital Signs (Past 12 Hours) Vital Signs Temp Pulse Pulse Resp BP Pulse Ox 07/30/20 11:22 36.9 C 82 16 105/64 97 07/30/20 07:20 63 07/30/20 07:13 77 14 99 07/30/20 06:25 36.6 C 60 18 109/63 97 07/30/20 03:11 36.5 C 75 18 123/65 98 Laboratory Results Short CBC 07/30/20 Range/Units 05:39 WBC 7.67 (4.8-10.8) K/uL Hgb 8.0 L (12.0-16.0) g/dL Hct 26.7 L (37-47) % Plt Count 338 (130-400) K/uL BMP 07/30/20 05:39 Sodium 142 Potassium 3.5 Chloride 108 H Carbon Dioxide 32 BUN 9 Creatinine 0.75 Glucose 112 H Calcium 8.7 Medications Administered Current Inpatient Medications Acetaminophen (Acetaminophen 325 Mg Tab) 650 mg PO Q4H PRN PRN Reason: Pain or Fever Stop: 08/27/20 18:24 Last Admin: 07/28/20 20:59 Dose: 650 mg Documented by: Hydrocodone Bitart/Acetaminophen (Hydrocodone/Acetamophen 5/325mg Tab) 1 tab PO Q6H PRN PRN Reason: Pain Stop: 08/11/20 21:27 Last Admin: 07/30/20 04:00 Dose: 1 tab Documented by: Albuterol (Albuterol Hfa 8 Gm Inhaler) 2 puffs INH QID PRN PRN Reason: Shortness Of Breath Stop: 08/27/20 18:24 Albuterol (Albuterol 0.083% Nebu Soln 3 Ml Vial) 2.5 mg INH BID PRN PRN Reason: .WORSENING ASTHMA Stop: 08/27/20 18:24 Albuterol (Albuterol Hfa 8 Gm Inhaler) 1 puffs INH QIDR ANDREA Stop: 08/27/20 18:59 Last Admin: 07/30/20 07:11 Dose: 1 puffs Documented by: Atorvastatin Calcium (Atorvastatin 40 Mg Tab) 40 mg PO HS ANDREA Stop: 08/27/20 20:59 Last Admin: 07/29/20 20:49 Dose: 40 mg Documented by: Bimatoprost (Bimatoprost 0.01% Op Soln 2.5 Ml Btl) 1 drops OP HS ANDREA Stop: 08/27/20 20:59 Last Admin: 07/29/20 20:51 Dose: 1 drops Documented by: Brinzolamide (Brinzolamide (Azopt) Ops 10 Ml Btl) 1 drops OPB BID ANDREA Stop: 08/27/20 20:59 Last Admin: 07/30/20 08:09 Dose: 1 drops Documented by: Dextrose (Dextrose 50% 50 Ml Syringe) 25 - 50 ml IV UD PRN; Protocol PRN Reason: Hypoglycemia Protocol Stop: 08/27/20 18:24 Dicyclomine HCl (Dicyclomine Hcl 20 Mg Tab) 20 mg PO BID ANDREA Stop: 08/27/20 20:59 Last Admin: 07/30/20 08:11 Dose: 20 mg Documented by: Diltiazem HCl (Diltiazem Hcl 240 Mg Capcr) 240 mg PO QAM ANDREA Stop: 08/28/20 08:59 Last Admin: 07/30/20 08:10 Dose: 240 mg Documented by: Ferrous Sulfate (Ferrous Sulfate 325 Mg Tab) 325 mg PO QAM [facility] Stop: 08/28/20 08:59 Last Admin: 07/30/20 08:11 Dose: 325 mg Documented by: Furosemide (Furosemide 40 Mg Tab) 40 mg PO DAILY ANDREA Stop: 08/28/20 08:59 Last Admin: 07/30/20 08:10 Dose: 40 mg Documented by: Glucagon (Glucagon For Inj 1 Mg Vial) 1 mg SQ UD PRN; Protocol PRN Reason: Hypoglycemia Protocol Stop: 08/27/20 18:24 Glucose (Glucose 10 Tabs/Tube) 4 - 8 tabs PO UD PRN; Protocol PRN Reason: Hypoglycemia Protocol Stop: 08/27/20 18:24 Glucose (Glucose 40% Gel 15 Gm Tube) 15 - 30 gm PO UD PRN; Protocol PRN Reason: Hypoglycemia Protocol Stop: 08/27/20 18:24 Ciprofloxacin (Cipro / D5w) 400 mg in 200 mls @ 100 mls/hr IV Q12H ANDREA; Protocol Stop: 08/08/20 04:59 Last Infusion: 07/30/20 06:44 Dose: Infused Documented by: Metronidazole (Flagyl) 500 mg in 100 mls @ 100 mls/hr IV Q8H [facility] Stop: 08/08/20 02:59 Last Infusion: 07/30/20 04:55 Dose: Infused Documented by: Insulin Aspart (Insulin Aspart 100 Units/Ml 3 Ml Pen) 0 units SC ACHS ANDREA Stop: 08/27/20 20:59 Last Admin: 07/30/20 09:00 Dose: Not Given Documented by: Ipratropium [place] (Ipratropium [place] Hfa Inhaler) 1 puffs INH QIDR ANDREA Stop: 08/27/20 18:59 Last Admin: 07/30/20 07:11 Dose: 1 puffs Documented by: Lactobacillus Acidoph/Casei/Rhamnos (Advanced Probiotic 1250 Mg Capsule) 2 cap PO DAILY ANDREA Stop: 08/28/20 08:59 Last Admin: 07/30/20 08:11 Dose: 2 cap Documented by: Methimazole (Methimazole 5 Mg Tablet) 5 mg PO QAM [facility] Stop: 08/28/20 08:59 Last Admin: 07/30/20 08:11 Dose: 5 mg Documented by: Miscellaneous (Carbohydrates For Hypoglycemia ) 15 - 30 gm PO UD PRN PRN Reason: Hypoglycemia Protocol Stop: 08/27/20 18:24 Miscellaneous (Zafirlukast 20 Mg: Order Awaiting Action) 1 ea N/A QS [facility] Stop: 08/27/20 18:59 Last Admin: 07/30/20 07:23 Dose: Not Given Documented by: Miscellaneous Information (Ciprofloxacin Consult Active) 1 ea N/A UD PRN PRN Reason: Consult Stop: 08/28/20 02:59 Multivitamins ([facility]ivitamin Tab) [facility]: 08/28/20 08:59 Last Admin: 07/30/20 08:10 Dose: 1 tab Documented by: Ondansetron HCl (Ondansetron Inj 2 Mg/Ml 2 Ml Vial) 4 mg IV Q6H PRN PRN Reason: Nausea Stop: 08/27/20 18:24 Last Admin: 07/28/20 23:32 Dose: 4 mg Documented by: Pantoprazole Sodium (Pantoprazole 40 Mg Tab) 40 mg PO BID [facility] Stop: 08/27/20 20:59 Last Admin: 07/30/20 08:12 Dose: 40 mg Documented by: Potassium Chloride (Potassium Chloride 10 Meq Tabcr) 10 meq PO DAILY ANDREA Stop: 08/28/20 08:59 Last Admin: 07/30/20 08:10 Dose: 10 meq Documented by: Promethazine HCl (Promethazine Hcl 25 Mg Tab) 25 mg PO Q6H PRN PRN Reason: nausea and vomiting Stop: 08/27/20 18:24 Last Admin: 07/30/20 03:24 Dose: 25 mg Documented by: Umeclidinium [place] (Umeclidinium [place] 62.5mcg/Blister 7 Puffs/Inhaler) 1 puffs INH DAILY [facility] Stop: 08/28/20 08:59 Last Admin: 07/30/20 08:12 Dose: 1 puffs Documented by: Vitamin D (Cholecalciferol 1,000 Units 25 Mcg Tab) 1,000 units PO QAM [facility] Stop: 08/28/20 08:59 Last Admin: 07/30/20 08:12 Dose: 1,000 units Documented by:
[2020-07-30] MEDS: ONDANSETRON INJ 2 MG/ML 2 ML VIAL IV PRN (20:29)
[2020-07-30] MEDS: BIMATOPROST 0.01% OP SOLN 2.5 ML BTL OP SCH (20:32)
[2020-07-30] MEDS: ATORVASTATIN 40 MG TAB PO SCH (20:32)
[2020-07-31] MEDS: metroNIDAZOLE 500 MG/100 ML BAG IV SCH ×3 (04:10→18:52)
[2020-07-31] MEDS: CIPROFLOXACIN / D5W 400 MG/200 ML BAG IV SCH ×2 (04:54→16:47)
[2020-07-31 05:53] LABS: Basophils # (auto) 0.02 K/uL (0-0.2); Basophils % (auto) 0.3 %; Eosinophils # (auto) 0.56 K/uL (0-0.5); Eosinophils % (auto) 7.6 %; Hematocrit (blood only) 27.6 % (37-47); Hemoglobin 8.2 g/dL (12.0-16.0); Immature Granulocytes # (auto) 0.01 K/uL (0.00-0.02); Immature Granulocytes % (auto) 0.1 %; Lymphocytes # (auto) 2.55 K/uL (1.2-3.4); Lymphocytes % (auto) 34.4 %; Mean Corpuscular Hemoglobin 25.8 pg (25-34); Mean Corpuscular Hgb Conc 29.7 g/dL (32-36); Mean Corpuscular Volume 86.8 fL (80-100); Mean Platelet Volume 9.2 fL (7.4-10.4); Monocytes # (auto) 0.87 K/uL (0.11-0.59); Monocytes % (auto) 11.7 %; Neutrophils % (auto) 45.9 %; Platelet Count 351 K/uL (130-400); RDW Coefficient of Variation 14.6 % (11.5-14.5); RDW Standard Deviation 46.1 fL (36.4-46.3); Red Blood Count 3.18 M/uL (4.2-5.4); White Blood Count 7.41 K/uL (4.8-10.8)
[2020-07-31 06:11] LABS: BUN Creatinine Ratio 12.2 (10-20); Calcium 8.6 mg/dl (8.5-10.1); Creatinine Clr Calc Pharmacy 64.7 ml/min; Est GFR (African American) 76.6; Est GFR (Non-African American) 66.1; Potassium 3.6 mmol/L (3.5-5.1)
[2020-07-31] MEDS: IPRATROPIUM BROMIDE HFA INHALER INH SCH ×4 (07:16→19:11)
[2020-07-31] MEDS: ALBUTEROL HFA 8 GM INHALER INH SCH ×4 (07:16→19:11)
[2020-07-31] MEDS: HYDROCODONE/ACETAMOPHEN 5/325MG TAB PO PRN ×2 (07:20→16:47)
[2020-07-31] MEDS: DICYCLOMINE HCL 20 MG TAB PO SCH ×2 (08:21→19:49)
[2020-07-31] MEDS: ADVANCED PROBIOTIC 1250 MG CAPSULE PO SCH (08:22)
[2020-07-31] MEDS: CHOLECALCIFEROL 1,000 UNITS 25 MCG TAB PO SCH (08:22)
[2020-07-31] MEDS: dilTIAZem HCL 240 MG CAPCR PO SCH (08:22)
[2020-07-31] MEDS: methIMAzole 5 MG TABLET PO SCH (08:23)
[2020-07-31] MEDS: PANTOprazole 40 MG TAB PO SCH ×2 (08:23→19:49)
[2020-07-31] MEDS: MULTIVITAMIN TAB PO SCH (08:23)
[2020-07-31] MEDS: FERROUS SULFATE 325 MG TAB PO SCH (08:23)
[2020-07-31] MEDS: UMECLIDINIUM BROMIDE 62.5MCG/BLISTER 7 PUFFS/INHALER INH SCH (08:24)
[2020-07-31] MEDS: BRINZOLAMIDE (AZOPT) OPS 10 ML BTL OPB SCH ×2 (08:24→19:50)
[2020-07-31] MEDS: FUROSEMIDE 40 MG TAB PO SCH (08:24)
[2020-07-31] MEDS: POTASSIUM CHLORIDE 10 MEQ TABCR PO SCH (08:24)
[2020-07-31] MEDS: INSULIN ASPART 100 UNITS/ML 3 ML PEN SC SCH ×4 (08:26→21:46)
--- NOTE | 2020-07-31 08:54 | Gastroenterology Progress Note ---
Date of Service July 31, 2020 Assessment & Plan (1) Acute diverticulitis of intestine: 79 y/o female admitted for recurrent diverticulitis improving on IV ABX - Complete 10 days of ABX - Antiemetics PRN - Gastroparesis diet, low residue as tolerated - OP EUS for GIST - No plan for repeat EGD/Colon given benign findings in April 2020 - Previously evaluated by general surgery and deemed poor surgical candidate but consider re-evaluate if symptosm persist or worsen - Will sign off. Thank you for allowing us to participate in the care of this patient. Please call with any acute changes, questions or concerns. Please see addendum below with additional recommendation from my supervising physician. Admission and Anticipated Discharge Date Admission Date: July 28, 2020 Supervising Physician Co-Signing Physician Notes I saw and evaluated the patient with Ms. Martino. The patient presents with recurrent diverticulitis and seems to be recovering well. Would recommend a 2-week course of antibiotics and to follow-up with a colorectal surgeon should she have recurrent symptoms. With regard to the gastrointestinal stromal tumor we are planning to do a follow-up endoscopic ultrasound next month. Please call with any questions or concerns GI to sign off. Subjective Pt was seen and evaluated, chart reviewed. Feeling better Pain is occurring less often and is less severe Notes some trace BRB coating her BM yesterday No stool today Tolerating PO No nausea/vomiting. Review of Systems Constitutional: no fever, no chills and no fatigue Respiratory: no cough and no dyspnea Cardiovascular: no chest pain Gastrointestinal: + diarrhea/loose stools; no abdominal pain, no nausea, no vomiting, no coffee ground emesis, no hematemesis, no blood in stools and no melena Physical Exam Constitutional: well nourished; no acute distress and not ill appearing Neck: trachea midline Respiratory: normal respiratory effort Gastrointestinal (Abdomen): Percussion/Palpation: + abdomen tender (mild lower abd tenderness w/ palpation) and abdomen soft Skin: no rashes, warm and dry Results & Data ([facility]) Vital Signs (Past 12 Hours) Vital Signs Temp Pulse Pulse Resp BP Pulse Ox 07/31/20 07:46 51 L 07/31/20 07:34 36.8 C 63 16 103/62 96 07/31/20 07:17 66 16 98 07/31/20 04:08 36.7 C 73 18 115/67 98 07/31/20 00:53 57 L 07/30/20 22:02 37.2 C 68 20 110/63 98 Laboratory Results 07/31/20 07/31/20 07/31/20 Range/Units 07:49 05:30 05:30 WBC 7.41 (4.8-10.8) K/uL RBC 3.18 L (4.2-5.4) M/uL Hgb 8.2 L (12.0-16.0) g/dL Hct 27.6 L (37-47) % MCV 86.8 (80-100) fL MCH 25.8 (25-34) pg MCHC 29.7 L (32-36) g/dL RDW Std Deviation 46.1 (36.4-46.3) fL RDW Coeff of Jesika 14.6 H (11.5-14.5) % Plt Count 351 (130-400) K/uL MPV 9.2 (7.4-10.4) fL Immature Gran % (Auto) 0.1 % Neut % (Auto) 45.9 % Lymph % (Auto) 34.4 % [place] % (Auto) 11.7 % Eos % (Auto) 7.6 % Baso % (Auto) 0.3 % Neut # (Auto) 3.40 (1.4-6.5) K/uL Lymph # (Auto) 2.55 (1.2-3.4) K/uL [place] # (Auto) 0.87 H (0.11-0.59) K/uL Eos # (Auto) 0.56 H (0-0.5) K/uL Baso # (Auto) 0.02 (0-0.2) K/uL Immature Gran # (Auto) 0.01 (0.00-0.02) K/uL Sodium 143 (136-145) mmol/L Potassium 3.6 (3.5-5.1) mmol/L Chloride 108 H (98-107) mmol/L Carbon Dioxide 30 (21-32) mmol/L Anion Gap 5.0 (3-11) BUN 10 (7-18) mg/dl Creatinine 0.83 (0.6-1.2) mg/dl Est Cr Clr Drug Dosing 64.7 ml/min Est GFR ( Amer) 76.6 Est GFR (Non-Af Amer) 66.1 BUN/Creatinine Ratio 12.2 (10-20) Glucose 122 H (70-99) mg/dl POC Glucose 126 H (70-99) mg/dl Calcium 8.6 (8.5-10.1) mg/dl 07/30/20 07/30/20 07/30/20 Range/Units 20:22 16:51 11:20 WBC (4.8-10.8) K/uL RBC (4.2-5.4) M/uL Hgb (12.0-16.0) g/dL Hct (37-47) % MCV (80-100) fL MCH (25-34) pg MCHC (32-36) g/dL RDW Std Deviation (36.4-46.3) fL RDW Coeff of Jesika (11.5-14.5) % Plt Count (130-400) K/uL MPV (7.4-10.4) fL Immature Gran % (Auto) % Neut % (Auto) % Lymph % (Auto) % [place] % (Auto) % Eos % (Auto) % Baso % (Auto) % Neut # (Auto) (1.4-6.5) K/uL Lymph # (Auto) (1.2-3.4) K/uL [place] # (Auto) (0.11-0.59) K/uL Eos # (Auto) (0-0.5) K/uL Baso # (Auto) (0-0.2) K/uL Immature Gran # (Auto) (0.00-0.02) K/uL Sodium (136-145) mmol/L Potassium (3.5-5.1) mmol/L Chloride (98-107) mmol/L Carbon Dioxide (21-32) mmol/L Anion Gap (3-11) BUN (7-18) mg/dl Creatinine (0.6-1.2) mg/dl Est Cr Clr Drug Dosing ml/min Est GFR ( Amer) Est GFR (Non-Af Amer) BUN/Creatinine Ratio (10-20) Glucose (70-99) mg/dl POC Glucose 139 H 88 118 H (70-99) mg/dl Calcium (8.5-10.1) mg/dl
--- NOTE | 2020-07-31 14:09 | Hospitalist Progress Note ---
Date of Service July 31, 2020 Assessment & Plan (1) Acute diverticulitis of intestine: This is an 79yo F with a PMH of DM type II, asthma, COPD, chronic hypoxic respiratory failure on home O2, paroxysmal atrial fibrillation status post watchman procedure not anticoagulated due to history of GI bleeding, chronic diastolic CHF, GIST tumor under surveillance and other problems listed below who presents the ED for rectal bleeding and was found to have acute diverticulitis. -Afebrile, no leukocytosis -Recently admitted in late May-June for diverticulitis and completed course of antibiotic. Also treated with erythromycin and antiemetics for gastroparesis with significant improvement -Endorsing 2 episodes of BRBPR this morning prior to arrival. Hgb of 10 (baseline) - repeat CBC in AM -Has had another bloody bowel movement last night -Has been feeling a lot better since admission with minimal pain involving the left lower quadrant -Continue Cipro and Flagyl, clear liquid diet, stool cultures, -C. difficile is negative -Routine GI consult -appreciate input and recommendation -Pain is reasonably controlled We will start clears orally-we will advance diet as tolerated Hemoglobin is dropped to 8.0-remains stable as compared with hemoglobin of last 2 months We will continue current antibiotics Hemoglobin remains stable and will will advance diet as tolerated Likely discharge tomorrow (2) Gastroparesis: Improved from previous admission. Continue antiemetics as needed (avoid Zofran while on Cipro -QT prolongation interaction), Prilosec and bowel regimen No complaints of nausea and/or vomiting Denies any nausea and/or vomiting (3) COPD (chronic obstructive pulmonary disease): No acute exacerbation (4) Asthma: Continue duonebs, albuterol inhaler, Combivent QID, Incruse Ellipta, Zafirlukast (5) Diabetes mellitus, type 2: A1c of 6 in Jun 2020 -Hold home agents -SSI while in-patient -BSG AC HS (6) Paroxysmal atrial fibrillation: Not on anticoagulation due to history of GI bleeding -Continue diltiazem (7) Chronic diastolic CHF (congestive heart failure): Euvolemic on exam. Continue home dose Lasix DVT Ppx: SCDs Code status: FULL PCP: Blair Dispo: Admitted to [facility]. Plan to return home once medically stable. PT and OT evaluation before discharge Admission and Anticipated Discharge Date Admission Date: July 28, 2020 Subjective 07/29/2020 The patient was seen and examined in medical telemetry unit She has had a large bowel movement which was bloody last night No bowel movement this morning Her abdominal pain is improved and denies any nausea and or vomiting 07/30/2020 The patient was seen and examined in medical telemetry unit She has been feeling a lot better with minimal discomfort in the left lower quadrant She has had very small amount of blood per rectum Feels much better otherwise and has been tolerating clears orally 07/31/2020 The patient was seen and examined in medical telemetry unit She has been tolerating full liquid diet and complains minimal pain in the left lower quadrant She has had a small bowel movement last night with possible blood in it Denies any fever and/or chills Review of Systems Review of Systems: All systems reviewed and are unremarkable except as noted below except as noted below Gastrointestinal: + abdominal pain and + blood in stools (Happened last night but no bowel movement since this morning); no bloating, no nausea and no vomiting Physical Exam Physical Exam: Lying in bed comfortably Constitutional: well developed, well nourished, + ill appearing and + obese; no acute distress Eyes: PERRL, conjunctivae normal, anicteric sclerae ENMT: external ear and nose normal, oropharynx normal Neck: trachea midline, no thyromegaly Respiratory: normal respiratory effort; no respiratory distress Auscultation: lungs clear to auscultation bilaterally Cardiovascular: Rate/Rhythm: regular rate and regular rhythm Heart Sounds: no murmur Gastrointestinal (Abdomen): Inspection/Auscultation: abdomen normal to inspection, + abdomen distended and normal bowel sounds Percussion/Palpation: + abdomen tender (Left lower quadrant) and abdomen soft; no guarding and abdomen not rigid Musculoskeletal: No acute arthritis in any joint Neurologic: moves all extremities; no focal motor deficits Psychiatric: A+Ox3, euthymic affect Lymphatic: no cervical or axillary lymphadenopathy Results & Data Results & Data ([facility]) Vital Signs (Past 12 Hours) Vital Signs Temp Pulse Pulse Resp BP Pulse Ox 07/31/20 11:31 36.7 C 58 L 18 105/64 96 07/31/20 11:00 68 16 98 07/31/20 07:46 51 L 07/31/20 07:34 36.8 C 63 16 103/62 96 10/19/20 07:17 66 16 98 07/31/20 04:08 36.7 C 73 18 115/67 98 Laboratory Results Short CBC 07/31/20 Range/Units 05:30 WBC 7.41 (4.8-10.8) K/uL Hgb 8.2 L (12.0-16.0) g/dL Hct 27.6 L (37-47) % Plt Count 351 (130-400) K/uL BMP 07/31/20 05:30 Sodium 143 Potassium 3.6 Chloride 108 H Carbon Dioxide 30 BUN 10 Creatinine 0.83 Glucose 122 H Calcium 8.6 Medications Administered Current Inpatient Medications Acetaminophen (Acetaminophen 325 Mg Tab) 650 mg PO Q4H PRN PRN Reason: Pain or Fever Stop: 08/27/20 18:24 Last Admin: 07/28/20 20:59 Dose: 650 mg Documented by: Hydrocodone Bitart/Acetaminophen (Hydrocodone/Acetamophen 5/325mg Tab) 1 tab PO Q6H PRN PRN Reason: Pain Stop: 08/11/20 21:27 Last Admin: 07/31/20 07:20 Dose: 1 tab Documented by: Albuterol (Albuterol Hfa 8 Gm Inhaler) 2 puffs INH QID PRN PRN Reason: Shortness Of Breath Stop: 08/27/20 18:24 Albuterol (Albuterol 0.083% Nebu Soln 3 Ml Vial) 2.5 mg INH BID PRN PRN Reason: .WORSENING ASTHMA Stop: 08/27/20 18:24 Albuterol (Albuterol Hfa 8 Gm Inhaler) 1 puffs INH QIDR ANDREA Stop: 08/27/20 18:59 Last Admin: 07/31/20 10:58 Dose: 1 puffs Documented by: Atorvastatin Calcium (Atorvastatin 40 Mg Tab) 40 mg PO HS ANDREA Stop: 08/27/20 20:59 Last Admin: 07/30/20 20:32 Dose: 40 mg Documented by: Bimatoprost (Bimatoprost 0.01% Op Soln 2.5 Ml Btl) 1 drops OP HS ANDREA Stop: 08/27/20 20:59 Last Admin: 07/30/20 20:32 Dose: 1 drops Documented by: Brinzolamide (Brinzolamide (Azopt) Ops 10 Ml Btl) 1 drops OPB BID ANDREA Stop: 08/27/20 20:59 Last Admin: 07/31/20 08:24 Dose: 1 drops Documented by: Dextrose (Dextrose 50% 50 Ml Syringe) 25 - 50 ml IV UD PRN; Protocol PRN Reason: Hypoglycemia Protocol Stop: 08/27/20 18:24 Dicyclomine HCl (Dicyclomine Hcl 20 Mg Tab) 20 mg PO BID [facility] Stop: 08/27/20 20:59 Last Admin: 07/31/20 08:21 Dose: 20 mg Documented by: Diltiazem HCl (Diltiazem Hcl 240 Mg Capcr) 240 mg PO QAM ANDREA Stop: 08/28/20 08:59 Last Admin: 07/31/20 08:22 Dose: Not Given Documented by: Ferrous Sulfate (Ferrous Sulfate 325 Mg Tab) 325 mg PO QAM [facility] Stop: 08/28/20 08:59 Last Admin: 07/31/20 08:23 Dose: 325 mg Documented by: Furosemide (Furosemide 40 Mg Tab) 40 mg PO DAILY ANDREA Stop: 08/28/20 08:59 Last Admin: 07/31/20 08:24 Dose: 40 mg Documented by: Glucagon (Glucagon For Inj 1 Mg Vial) 1 mg SQ UD PRN; Protocol PRN Reason: Hypoglycemia Protocol Stop: 08/27/20 18:24 Glucose (Glucose 10 Tabs/Tube) 4 - 8 tabs PO UD PRN; Protocol PRN Reason: Hypoglycemia Protocol Stop: 08/27/20 18:24 Glucose (Glucose 40% Gel 15 Gm Tube) 15 - 30 gm PO UD PRN; Protocol PRN Reason: Hypoglycemia Protocol Stop: 08/27/20 18:24 Ciprofloxacin (Cipro / D5w) 400 mg in 200 mls @ 100 mls/hr IV Q12H ANDREA; Protocol Stop: 08/08/20 04:59 Last Infusion: 07/31/20 07:27 Dose: Infused Documented by: Metronidazole (Flagyl) 500 mg in 100 mls @ 100 mls/hr IV Q8H [facility] Stop: 08/08/20 02:59 Last Infusion: 07/31/20 12:48 Dose: Infused Documented by: Insulin Aspart (Insulin Aspart 100 Units/Ml 3 Ml Pen) 0 units SC ACHS ANDREA Stop: 08/27/20 20:59 Last Admin: 07/31/20 12:56 Dose: Not Given Documented by: Ipratropium [place] (Ipratropium [place] Hfa Inhaler) 1 puffs INH QIDR ANDREA Stop: 08/27/20 18:59 Last Admin: 07/31/20 10:57 Dose: 1 puffs Documented by: Lactobacillus Acidoph/Casei/Rhamnos (Advanced Probiotic 1250 Mg Capsule) 2 cap PO DAILY ANDREA Stop: 08/28/20 08:59 Last Admin: 07/31/20 08:22 Dose: 2 cap Documented by: Methimazole (Methimazole 5 Mg Tablet) 5 mg PO QAM [facility] Stop: 08/28/20 08:59 Last Admin: 07/31/20 08:23 Dose: 5 mg Documented by: Miscellaneous (Carbohydrates For Hypoglycemia ) 15 - 30 gm PO UD PRN PRN Reason: Hypoglycemia Protocol Stop: 08/27/20 18:24 Miscellaneous (Zafirlukast 20 Mg: Order Awaiting Action) 1 ea N/A QS [facility] Stop: 08/27/20 18:59 Last Admin: 07/31/20 08:24 Dose: Not Given Documented by: Miscellaneous Information (Ciprofloxacin Consult Active) 1 ea N/A UD PRN PRN Reason: Consult Stop: 08/28/20 02:59 Multivitamins (Multivitamin Tab) [facility] [place]: 08/28/20 08:59 Last Admin: 07/31/20 08:23 Dose: 1 tab Documented by: Ondansetron HCl (Ondansetron Inj 2 Mg/Ml 2 Ml Vial) 4 mg IV Q6H PRN PRN Reason: Nausea Stop: 08/27/20 18:24 Last Admin: 07/30/20 20:29 Dose: 4 mg Documented by: Pantoprazole Sodium (Pantoprazole 40 Mg Tab) 40 mg PO BID [facility] Stop: 08/27/20 20:59 Last Admin: 07/31/20 08:23 Dose: 40 mg Documented by: Potassium Chloride (Potassium Chloride 10 Meq Tabcr) 10 meq PO DAILY ANDREA Stop: 08/28/20 08:59 Last Admin: 07/31/20 08:24 Dose: 10 meq Documented by: Promethazine HCl (Promethazine Hcl 25 Mg Tab) 25 mg PO Q6H PRN PRN Reason: nausea and vomiting Stop: 08/27/20 18:24 Last Admin: 07/30/20 03:24 Dose: 25 mg Documented by: Umeclidinium [place] (Umeclidinium [place] 62.5mcg/Blister 7 Puffs/Inhaler) 1 puffs INH DAILY ANDREA Stop: 08/28/20 08:59 Last Admin: 07/31/20 08:24 Dose: 1 puffs Documented by: Vitamin D (Cholecalciferol 1,000 Units 25 Mcg Tab) 1,000 units PO QAM ANDREA Stop: 08/28/20 08:59 Last Admin: 07/31/20 08:22 Dose: 1,000 units Documented by:
[2020-07-31] MEDS: ATORVASTATIN 40 MG TAB PO SCH (19:49)
[2020-07-31] MEDS: BIMATOPROST 0.01% OP SOLN 2.5 ML BTL OP SCH (19:50)
[2020-08-01] MEDS: HYDROCODONE/ACETAMOPHEN 5/325MG TAB PO PRN ×3 (00:04→15:22)
[2020-08-01] MEDS: metroNIDAZOLE 500 MG/100 ML BAG IV SCH ×2 (02:05→11:09)
[2020-08-01] MEDS: PROMETHAZINE HCL 25 MG TAB PO PRN (02:08)
[2020-08-01] MEDS: CIPROFLOXACIN / D5W 400 MG/200 ML BAG IV SCH (04:52)
[2020-08-01 05:55] LABS: Basophils # (auto) 0.02 K/uL (0-0.2); Basophils % (auto) 0.2 %; Eosinophils # (auto) 0.63 K/uL (0-0.5); Eosinophils % (auto) 7.2 %; Hematocrit (blood only) 26.9 % (37-47); Hemoglobin 7.8 g/dL (12.0-16.0); Immature Granulocytes # (auto) 0.01 K/uL (0.00-0.02); Immature Granulocytes % (auto) 0.1 %; Lymphocytes # (auto) 3.05 K/uL (1.2-3.4); Mean Corpuscular Hemoglobin 25.2 pg (25-34); Mean Corpuscular Volume 87.1 fL (80-100); Mean Platelet Volume 9.3 fL (7.4-10.4); Monocytes # (auto) 1.23 K/uL (0.11-0.59); Monocytes % (auto) 14.1 %; Neutrophils # (auto) 3.77 K/uL (1.4-6.5); Neutrophils % (auto) 43.4 %; Platelet Count 370 K/uL (130-400); RDW Coefficient of Variation 14.9 % (11.5-14.5); RDW Standard Deviation 47.3 fL (36.4-46.3); Red Blood Count 3.09 M/uL (4.2-5.4); White Blood Count 8.71 K/uL (4.8-10.8)
[2020-08-01 06:13] LABS: Hypochromasia Present
[2020-08-01 06:18] LABS: BUN Creatinine Ratio 14.4 (10-20); Calcium 8.5 mg/dl (8.5-10.1); Creatinine Clr Calc Pharmacy 54.8 ml/min; Est GFR (African American) 62.7; Est GFR (Non-African American) 54.1; Potassium 3.2 mmol/L (3.5-5.1)
[2020-08-01] MEDS: ALBUTEROL HFA 8 GM INHALER INH SCH ×4 (07:35→19:31)
[2020-08-01] MEDS: IPRATROPIUM BROMIDE HFA INHALER INH SCH ×4 (07:35→19:31)
[2020-08-01] MEDS: MULTIVITAMIN TAB PO SCH (07:47)
[2020-08-01] MEDS: POTASSIUM CHLORIDE 10 MEQ TABCR PO SCH (07:47)
[2020-08-01] MEDS: CHOLECALCIFEROL 1,000 UNITS 25 MCG TAB PO SCH (07:47)
[2020-08-01] MEDS: UMECLIDINIUM BROMIDE 62.5MCG/BLISTER 7 PUFFS/INHALER INH SCH (07:47)
[2020-08-01] MEDS: DICYCLOMINE HCL 20 MG TAB PO SCH ×2 (07:48→21:01)
[2020-08-01] MEDS: ADVANCED PROBIOTIC 1250 MG CAPSULE PO SCH (07:48)
[2020-08-01] MEDS: FERROUS SULFATE 325 MG TAB PO SCH (07:48)
[2020-08-01] MEDS: dilTIAZem HCL 240 MG CAPCR PO SCH (07:48)
[2020-08-01] MEDS: PANTOprazole 40 MG TAB PO SCH ×2 (07:49→21:01)
[2020-08-01] MEDS: methIMAzole 5 MG TABLET PO SCH (07:49)
[2020-08-01] MEDS: BRINZOLAMIDE (AZOPT) OPS 10 ML BTL OPB SCH ×2 (07:50→21:01)
[2020-08-01] MEDS: FUROSEMIDE 40 MG TAB PO SCH ×2 (07:50→12:37)
[2020-08-01] MEDS: INSULIN ASPART 100 UNITS/ML 3 ML PEN SC SCH ×4 (09:12→21:10)
--- NOTE | 2020-08-01 14:52 | Hospitalist Progress Note ---
Date of Service August 01, 2020 Assessment & Plan (1) Acute diverticulitis of intestine: This is an 79yo F with a PMH of DM type II, asthma, COPD, chronic hypoxic respiratory failure on home O2, paroxysmal atrial fibrillation status post watchman procedure not anticoagulated due to history of GI bleeding, chronic diastolic CHF, GIST tumor under surveillance and other problems listed below who presents the ED for rectal bleeding and was found to have acute diverticulitis. -Afebrile, no leukocytosis -Recently admitted in late May-June for diverticulitis and completed course of antibiotic. Also treated with erythromycin and antiemetics for gastroparesis with significant improvement -Endorsing 2 episodes of BRBPR this morning prior to arrival. Hgb of 10 (baseline) - repeat CBC in AM -Has had another bloody bowel movement last night -Has been feeling a lot better since admission with minimal pain involving the left lower quadrant -Continue Cipro and Flagyl, clear liquid diet, stool cultures, -C. difficile is negative -Routine GI consult -appreciate input and recommendation -Pain is reasonably controlled We will start clears orally-we will advance diet as tolerated She has been feeling generalized weakness and was dizzy during physical therapy evaluation She has been tolerating advanced diet and the pain seems to be improving We will get orthostatic vitals Change antibiotics to oral and continue with PT and OT If hemoglobin remains stable and she feels better she may be discharged tomorrow (2) Gastroparesis: Improved from previous admission. Continue antiemetics as needed (avoid Zofran while on Cipro -QT prolongation interaction), Prilosec and bowel regimen No complaints of nausea and/or vomiting Denies any nausea and/or vomiting (3) COPD (chronic obstructive pulmonary disease): No acute exacerbation (4) Asthma: Continue duonebs, albuterol inhaler, Combivent QID, Incruse Ellipta, Zafirlukast (5) Diabetes mellitus, type 2: A1c of 6 in Jun 2020 -Hold home agents -SSI while in-patient -BSG AC HS (6) Paroxysmal atrial fibrillation: Not on anticoagulation due to history of GI bleeding -Continue diltiazem (7) Chronic diastolic CHF (congestive heart failure): Euvolemic on exam. Continue home dose Lasix DVT Ppx: SCDs Code status: FULL PCP: Blair Dispo: Admitted to [facility]. Plan to return home once medically stable. PT and OT evaluation before discharge We will continue PT and OT for now Likely discharge tomorrow if hemoglobin is stable and the patient remains reaso nably seen free of symptoms Admission and Anticipated Discharge Date Admission Date: July 28, 2020 Subjective 07/29/2020 The patient was seen and examined in medical telemetry unit She has had a large bowel movement which was bloody last night No bowel movement this morning Her abdominal pain is improved and denies any nausea and or vomiting 07/30/2020 The patient was seen and examined in medical telemetry unit She has been feeling a lot better with minimal discomfort in the left lower quadrant She has had very small amount of blood per rectum Feels much better otherwise and has been tolerating clears orally 07/31/2020 The patient was seen and examined in medical telemetry unit She has been tolerating full liquid diet and complains minimal pain in the left lower quadrant She has had a small bowel movement last night with possible blood in it Denies any fever and/or chills 08/01/2020 The patient was seen and examined in medical telemetry unit She feels generally weak and noted to have dizziness during physical therapy She denies any more bloody stool Abdominal pain seems to be improving Review of Systems Review of Systems: All systems reviewed and are unremarkable except as noted below except as noted below Gastrointestinal: + abdominal pain and + blood in stools (Happened last night but no bowel movement since this morning); no bloating, no nausea and no vomiting Physical Exam Physical Exam: Lying in bed comfortably Constitutional: well developed, well nourished, + ill appearing and + obese; no acute distress Eyes: PERRL, conjunctivae normal, anicteric sclerae ENMT: external ear and nose normal, oropharynx normal Neck: trachea midline, no thyromegaly Respiratory: normal respiratory effort; no respiratory distress Auscultation: lungs clear to auscultation bilaterally Cardiovascular: Rate/Rhythm: regular rate and regular rhythm Heart Sounds: no murmur Gastrointestinal (Abdomen): Inspection/Auscultation: abdomen normal to inspection and normal bowel sounds; abdomen not distended Percussion/Palpation: + abdomen tender (Left lower quadrant-minimal tenderness without any guarding and/or rigidity) and abdomen soft; no guarding and abdomen not rigid Musculoskeletal: No acute arthritis in any joint Neurologic: moves all extremities; no focal motor deficits Psychiatric: A+Ox3, euthymic affect Lymphatic: no cervical or axillary lymphadenopathy Results & Data Results & Data ([facility]) Vital Signs (Past 12 Hours) Vital Signs Temp Pulse Pulse Resp BP BP Pulse Ox 08/01/20 11:24 36.8 C 66 20 114/67 97 08/01/20 11:22 79 20 98 08/01/20 10:20 75 08/01/20 07:52 36.6 C 71 20 108/67 100 08/01/20 07:36 74 18 98 08/01/20 03:36 36.7 C 75 19 123/66 96 Laboratory Results Short CBC 08/01/20 Range/Units 05:22 WBC 8.71 (4.8-10.8) K/uL Hgb 7.8 L (12.0-16.0) g/dL Hct 26.9 L (37-47) % Plt Count 370 (130-400) K/uL BMP 08/01/20 05:22 Sodium 141 Potassium 3.2 L Chloride 105 Carbon Dioxide 34 H BUN 14 Creatinine 0.98 Glucose 139 H Calcium 8.5 Medications Administered Current Inpatient Medications Acetaminophen (Acetaminophen 325 Mg Tab) 650 mg PO Q4H PRN PRN Reason: Pain or Fever Stop: 08/27/20 18:24 Last Admin: 07/28/20 20:59 Dose: 650 mg Documented by: Hydrocodone Bitart/Acetaminophen (Hydrocodone/Acetamophen 5/325mg Tab) 1 tab PO Q6H PRN PRN Reason: Pain Stop: 08/11/20 21:27 Last Admin: 08/01/20 07:33 Dose: 1 tab Documented by: Albuterol (Albuterol Hfa 8 Gm Inhaler) 2 puffs INH QID PRN PRN Reason: Shortness Of Breath Stop: 08/27/20 18:24 Albuterol (Albuterol 0.083% Nebu Soln 3 Ml Vial) 2.5 mg INH BID PRN PRN Reason: .WORSENING ASTHMA Stop: 08/27/20 18:24 Albuterol (Albuterol Hfa 8 Gm Inhaler) 1 puffs INH QIDR ANDREA Stop: 08/27/20 18:59 Last Admin: 08/01/20 11:21 Dose: 1 puffs Documented by: Atorvastatin Calcium (Atorvastatin 40 Mg Tab) 40 mg PO HS ANDREA Stop: 08/27/20 20:59 Last Admin: 07/31/20 19:49 Dose: 40 mg Documented by: Bimatoprost (Bimatoprost 0.01% Op Soln 2.5 Ml Btl) 1 drops OP HS ANDREA Stop: 08/27/20 20:59 Last Admin: 07/31/20 19:50 Dose: 1 drops Documented by: Brinzolamide (Brinzolamide (Azopt) Ops 10 Ml Btl) 1 drops OPB BID [facility] Stop: 08/27/20 20:59 Last Admin: 08/01/20 07:50 Dose: 1 drops Documented by: Ciprofloxacin (Ciprofloxacin 500 Mg Tab) 500 mg PO BID [facility]; Protocol Stop: 08/08/20 23:59 Dextrose (Dextrose 50% 50 Ml Syringe) 25 - 50 ml IV UD PRN; Protocol PRN Reason: Hypoglycemia Protocol Stop: 08/27/20 18:24 Dicyclomine HCl (Dicyclomine Hcl 20 Mg Tab) 20 mg PO BID [facility] Stop: 08/27/20 20:59 Last Admin: 08/01/20 07:48 Dose: 20 mg Documented by: Diltiazem HCl (Diltiazem Hcl 240 Mg Capcr) 240 mg PO QAM [facility] Stop: 08/28/20 08:59 Last Admin: 08/01/20 07:48 Dose: 240 mg Documented by: Ferrous Sulfate (Ferrous Sulfate 325 Mg Tab) 325 mg PO QAM [facility] Stop: 08/28/20 08:59 Last Admin: 08/01/20 07:48 Dose: 325 mg Documented by: Furosemide (Furosemide 40 Mg Tab) 40 mg PO DAILY [facility] Stop: 08/28/20 08:59 Last Admin: 08/01/20 12:37 Dose: 40 mg Documented by: Glucagon (Glucagon For Inj 1 Mg Vial) 1 mg SQ UD PRN; Protocol PRN Reason: Hypoglycemia Protocol Stop: 08/27/20 18:24 Glucose (Glucose 10 Tabs/Tube) 4 - 8 tabs PO UD PRN; Protocol PRN Reason: Hypoglycemia Protocol Stop: 08/27/20 18:24 Glucose (Glucose 40% Gel 15 Gm Tube) 15 - 30 gm PO UD PRN; Protocol PRN Reason: Hypoglycemia Protocol Stop: 08/27/20 18:24 Ciprofloxacin (Cipro / D5w) 400 mg in 200 mls @ 100 mls/hr IV Q12H ANDREA; Protocol Stop: 08/01/20 19:00 Last Infusion: 08/01/20 07:31 Dose: Infused Documented by: Metronidazole (Flagyl) 500 mg in 100 mls @ 100 mls/hr IV Q8H [facility] Stop: 08/01/20 23:59 Last Infusion: 08/01/20 12:37 Dose: Infused Documented by: Insulin Aspart (Insulin Aspart 100 Units/Ml 3 Ml Pen) 0 units SC ACHS [facility] Stop: 08/27/20 20:59 Last Admin: 08/01/20 12:39 Dose: 3 units Documented by: Ipratropium Horatio (Ipratropium Horatio Hfa Inhaler) 1 puffs INH QIDR [facility] Stop: 08/27/20 18:59 Last Admin: 08/01/20 11:21 Dose: 1 puffs Documented by: Lactobacillus Acidoph/Casei/Rhamnos (Advanced Probiotic 1250 Mg Capsule) 2 cap PO DAILY [facility] Stop: 08/28/20 08:59 Last Admin: 08/01/20 07:48 Dose: 2 cap Documented by: Methimazole (Methimazole 5 Mg Tablet) 5 mg PO QAM [facility] Stop: 08/28/20 08:59 Last Admin: 08/01/20 07:49 Dose: 5 mg Documented by: Metronidazole (Metronidazole 500 Mg Tab) 500 mg PO TID [facility]; Protocol Stop: 08/08/20 23:59 Miscellaneous (Carbohydrates For Hypoglycemia ) 15 - 30 gm PO UD PRN PRN Reason: Hypoglycemia Protocol Stop: 08/27/20 18:24 Miscellaneous (Zafirlukast 20 Mg: Order Awaiting Action) 1 ea N/A QS [facility] Stop: 08/27/20 18:59 Last Admin: 08/01/20 07:45 Dose: Not Given Documented by: Miscellaneous Information (Ciprofloxacin Consult Active) 1 ea N/A UD PRN PRN Reason: Consult Stop: 08/28/20 02:59 Multivitamins (Multivitamin Tab) 1 tab PO QAM [facility] Stop: 08/28/20 08:59 Last Admin: 08/01/20 07:47 Dose: 1 tab Documented by: Ondansetron HCl (Ondansetron Inj 2 Mg/Ml 2 Ml Vial) 4 mg IV Q6H PRN PRN Reason: Nausea Stop: 08/27/20 18:24 Last Admin: 07/30/20 20:29 Dose: 4 mg Documented by: Pantoprazole Sodium (Pantoprazole 40 Mg Tab) 40 mg PO BID [facility] Stop: 08/27/20 20:59 Last Admin: 08/01/20 07:49 Dose: 40 mg Documented by: Potassium Chloride (Potassium Chloride 10 Meq Tabcr) 10 meq PO DAILY [facility] Stop: 08/28/20 08:59 Last Admin: 08/01/20 07:47 Dose: 10 meq Documented by: Promethazine HCl (Promethazine Hcl 25 Mg Tab) 25 mg PO Q6H PRN PRN Reason: nausea and vomiting Stop: 08/27/20 18:24 Last Admin: 08/01/20 02:08 Dose: 25 mg Documented by: Umeclidinium Horatio (Umeclidinium Horatio 62.5mcg/Blister 7 Puffs/Inhaler) 1 puffs INH DAILY [facility] Stop: 08/28/20 08:59 Last Admin: 08/01/20 07:47 Dose: 1 puffs Documented by: Vitamin D (Cholecalciferol 1,000 Units 25 Mcg Tab) 1,000 units PO QAM [facility] Stop: 08/28/20 08:59 Last Admin: 08/01/20 07:47 Dose: 1,000 units Documented by:
[2020-08-01] MEDS ORDERED: POTASSIUM CHLORIDE 20 MEQ TABCR PO STA (14:56)
[2020-08-01] MEDS: ATORVASTATIN 40 MG TAB PO SCH (21:01)
[2020-08-01] MEDS: BIMATOPROST 0.01% OP SOLN 2.5 ML BTL OP SCH (21:02)
[2020-08-02] MEDS: HYDROCODONE/ACETAMOPHEN 5/325MG TAB PO PRN (06:31)
[2020-08-02 06:49] LABS: Basophils # (auto) 0.04 K/uL (0-0.2); Basophils % (auto) 0.4 %; Eosinophils # (auto) 0.73 K/uL (0-0.5); Eosinophils % (auto) 7.6 %; Hematocrit (blood only) 30.5 % (37-47); Hemoglobin 8.8 g/dL (12.0-16.0); Immature Granulocytes # (auto) 0.02 K/uL (0.00-0.02); Immature Granulocytes % (auto) 0.2 %; Lymphocytes # (auto) 3.37 K/uL (1.2-3.4); Mean Corpuscular Hemoglobin 25.1 pg (25-34); Mean Corpuscular Hgb Conc 28.9 g/dL (32-36); Mean Corpuscular Volume 87.1 fL (80-100); Mean Platelet Volume 9.3 fL (7.4-10.4); Monocytes # (auto) 1.17 K/uL (0.11-0.59); Monocytes % (auto) 12.2 %; Neutrophils # (auto) 4.29 K/uL (1.4-6.5); Neutrophils % (auto) 44.6 %; Platelet Count 405 K/uL (130-400); RDW Coefficient of Variation 15.2 % (11.5-14.5); RDW Standard Deviation 47.9 fL (36.4-46.3); White Blood Count 9.62 K/uL (4.8-10.8)
[2020-08-02 07:16] LABS: BUN Creatinine Ratio 16.9 (10-20); Calcium 9.4 mg/dl (8.5-10.1); Creatinine Clr Calc Pharmacy 53.3 ml/min; Est GFR (African American) 60.5; Est GFR (Non-African American) 52.2; Potassium 3.5 mmol/L (3.5-5.1)
[2020-08-02] MEDS: ALBUTEROL HFA 8 GM INHALER INH SCH ×3 (07:42→15:06)
[2020-08-02] MEDS: IPRATROPIUM BROMIDE HFA INHALER INH SCH ×3 (07:42→15:06)
[2020-08-02] MEDS: DICYCLOMINE HCL 20 MG TAB PO SCH (08:32)
[2020-08-02] MEDS: CHOLECALCIFEROL 1,000 UNITS 25 MCG TAB PO SCH (08:32)
[2020-08-02] MEDS: PANTOprazole 40 MG TAB PO SCH (08:32)
[2020-08-02] MEDS: POTASSIUM CHLORIDE 10 MEQ TABCR PO SCH (08:32)
[2020-08-02] MEDS: BRINZOLAMIDE (AZOPT) OPS 10 ML BTL OPB SCH (08:32)
[2020-08-02] MEDS: FERROUS SULFATE 325 MG TAB PO SCH (08:33)
[2020-08-02] MEDS: MULTIVITAMIN TAB PO SCH (08:33)
[2020-08-02] MEDS: methIMAzole 5 MG TABLET PO SCH (08:33)
[2020-08-02] MEDS: ADVANCED PROBIOTIC 1250 MG CAPSULE PO SCH (08:34)
[2020-08-02] MEDS: dilTIAZem HCL 240 MG CAPCR PO SCH (08:34)
[2020-08-02] MEDS: UMECLIDINIUM BROMIDE 62.5MCG/BLISTER 7 PUFFS/INHALER INH SCH (08:34)
[2020-08-02] MEDS: metroNIDAZOLE 500 MG TAB PO SCH ×2 (08:35→13:10)
[2020-08-02] MEDS: FUROSEMIDE 40 MG TAB PO SCH (08:35)
[2020-08-02] MEDS: INSULIN ASPART 100 UNITS/ML 3 ML PEN SC SCH ×2 (08:37→13:12)
[2020-08-02] MEDS ORDERED: CIPROFLOXACIN 500 MG TAB PO SCH (09:00)
--- NOTE | 2020-08-02 15:56 | Hospitalist Progress Note ---
Date of Service August 02, 2020 Assessment & Plan (1) Acute diverticulitis of intestine: This is an 79yo F with a PMH of DM type II, asthma, COPD, chronic hypoxic respiratory failure on home O2, paroxysmal atrial fibrillation status post watchman procedure not anticoagulated due to history of GI bleeding, chronic diastolic CHF, GIST tumor under surveillance and other problems listed below who presents the ED for rectal bleeding and was found to have acute diverticulitis. -Recently admitted in late May-June for diverticulitis and completed course of antibiotic. Also treated with erythromycin and antiemetics for gastroparesis with significant improvement -Endorsing 2 episodes of BRBPR this morning prior to arrival. Hgb of 10 (baseline) - repeat CBC in AM -CT abd/pelvis showed moderate to advanced colonic diverticulosis with evidence of acute diverticulitis involving the proximal sigmoid. - Gastro on board -No plan for repeat EGD/Colon given benign findings in April 2020 -hemoglobin improved from 7.8 to 8.8 today -Tolerated diet -Continue abx with Cipro and flagyl to complete 10 days course -Followup with [facility] as scheduled for EUS of Gastric GIST -Clinically improves significantly (2) Gastroparesis: Improved from previous admission. Continue antiemetics as needed (avoid Zofran while on Cipro -QT prolongation interaction), Prilosec and bowel regimen No complaints of nausea and/or vomiting Denies any nausea and/or vomiting (3) COPD (chronic obstructive pulmonary disease): No acute exacerbation (4) Asthma: Continue duonebs, albuterol inhaler, Combivent QID, Incruse Ellipta, Zafirlukast (5) Diabetes mellitus, type 2: A1c of 6 in Jun 2020 Home DM on hold during hospital course Continue insulin sliding scale Continue monitor BS (6) Paroxysmal atrial fibrillation: Not on anticoagulation due to history of GI bleeding Continue diltiazem (7) Chronic diastolic CHF (congestive heart failure): Euvolemic on exam. Continue home dose Lasix DVT Ppx: SCDs Code status: FULL PCP: Blair Dispo: Admitted to [facility]. Plan to return home once medically stable. Disposition Will discharge home today Admission and Anticipated Discharge Date Admission Date: July 28, 2020 Subjective Pt was seen and examined Lying in bed with no distress Pt said that she is feeling much better She said that she is not having anymore bloody stool Denies any chest pain, palpitation, dizziness and SOB Physical Exam Physical Exam: General- No acute distress Head- atraumatic Eyes- PERRL, EOMI, ENT- oropharynx clear Neck- supple, no JVD Lungs- clear to auscultation Heart- regular rhythm; no murmur Abdomen- normal bowel sounds, soft, nontender Extremities- no calf tenderness Neuro- alert, oriented x 3; PERRL, EOMI; no facial palsy; no dysarthria Skin- warm & dry Results & Data Results & Data ([facility]) Vital Signs (Past 12 Hours) Vital Signs Temp Pulse Pulse Resp BP Pulse Ox 08/02/20 15:10 37.4 C 62 16 104/54 L 93 08/02/20 15:07 61 17 98 08/02/20 11:25 37.1 C 74 16 110/60 95 08/02/20 11:16 62 17 98 08/02/20 07:59 36.9 C 67 16 110/68 96 08/02/20 07:43 58 L 18 98 08/02/20 07:25 66 08/02/20 04:07 36.7 C 91 H 20 108/66 94
--- NOTE | 2020-08-04 09:59 | Discharge Summary ---
Date of Service August 02, 2020 Admission HPI Per Admitting Provider This is an 79yo F with a PMH of DM type II, asthma, COPD, chronic hypoxic respiratory failure on home O2, paroxysmal atrial fibrillation status post watchman procedure not anticoagulated due to history of GI bleeding, chronic diastolic CHF, GIST tumor under surveillance and other problems listed below who presents the ED for rectal bleeding. Recently admitted in late May-June for diverticulitis and gastroparesis. Has felt fine since then. Was seen in GI clinic on 07/26 with much improved symptoms. Instructed to continue PRN antiemetics, Prilosec, bowel regimen and possible follow up wt EUS due to hi story of GIST seen on EUS 2 years prior. This morning, patient had 2 episodes of bright red blood per rectum with small amount of loose stool. This was associated with left lower quadrant abdominal pain which is constant and worsening since this morning. Denies any associated fever and chills. No lightheadedness, visual changes, chest pain or palpitations, shortness of breath, nausea, vomiting, dysuria or constipation. Admission Exam Per Admitting Provider General Appearance: WD/WN, vitals as above, NAD, sitting up in bed, pleasant, conversing easily, obese Head: normocephalic, atraumatic Eyes: normal inspection, PERRL, conjunctivae normal, anicteric sclerae ENT: external ear and nose normal, oropharynx normal Neck: normal visual inspection, trachea midline, no thyromegaly Respiratory: normal respiratory effort, lungs clear to auscultation, no wheeze, rales, rhonchi. No accessory muscle use Cardiovascular: regular rate, rhythm, no murmur, normal peripheral pulses, no BLE edema. Vessels: no JVD Chest: normal inspection of chest Abdomen/GI: normal bowel sounds, soft, LLQ pain, no guarding, no hepatosplenomegaly Extremities/Musculoskeletal: no cyanosis or clubbing, extremities motor strength 5/5 Neurologic: PERRL, EOMI, accommodation nl, no face palsy, no dysarthria, CN's II-XI intact bilaterally and moves all extremities Psychiatric: A+Ox3, euthymic affect Skin: no rashes, normal color, warm/dry Principal Diagnosis Acute diverticulitis of intestine: Gastroparesis: COPD (chronic obstructive pulmonary disease): Diabetes mellitus, type 2: Discharge Exam General- No acute distress Head- atraumatic Eyes- PERRL, EOMI, ENT- oropharynx clear Neck- supple, no JVD Lungs- clear to auscultation Heart- regular rhythm; no murmur Abdomen- normal bowel sounds, soft, nontender Extremities- no calf tenderness Neuro- alert, oriented x 3; PERRL, EOMI; no facial palsy; no dysarthria Skin- warm & dry Discharge Data Allergies Allergy/AdvReac Type Severity Reaction Status Date / Time salmon oil Allergy Severe HIVES-REDDENED Verified 07/28/20 15:29 ALL OVER Iodinated Contrast Media Allergy Intermediate HIVES-GI Verified 07/28/20 15:29 SYMPTOMS lisinopril Allergy Intermediate FAST HEART Verified 07/28/20 15:29 BEAT valsartan Allergy Intermediate FAST HEART Verified 07/28/20 15:29 BEAT bupropion AdvReac Mild GI SYMPTOMS Verified 07/28/20 15:29 enalapril AdvReac Mild GI SYMPTOMS Verified 07/28/20 15:29 escitalopram AdvReac Mild GI SYMPTOMS Verified 07/28/20 15:29 metoprolol AdvReac Mild LOWERS Verified 07/28/20 15:29 PULSE RATE verapamil AdvReac Mild GI UPSET, Verified 07/28/20 15:29 fast heart rate Consultations 07/28/20 15:11 ED Decision to Admit Stat 07/28/20 18:25 Consult Gastroenterology Routine Ordered Studies 07/28/20 12:02 CT abd pelvis wo con Stat CT SCAN OF THE ABDOMEN AND PELVIS WITHOUT IV CONTRAST CLINICAL HISTORY: Left lower quadrant abdominal pain. COMPARISON STUDY: Abdominal CT dated 06/11/2020. TECHNIQUE: CT scan of the abdomen and pelvis is performed from the lung bases to the proximal femora. Images are reviewed in the axial, sagittal, and coronal planes. IV contrast was not administered for this examination as per the referring clinician. Note that the examination was performed in suboptimal fashion without oral and IV contrast. A dose lowering technique was utilized adhering to the principles of ALARA. CT DOSE: 1620.00 mGy.cm FINDINGS: Lung bases: The heart is enlarged noting trace pericardial effusion. There are coronary artery calcifications. Emphysematous change is suspected. Foci of scarring/atelectasis are noted at the lung bases. There is no airspace consolidation or pleural effusion. There is a tiny hiatal hernia. Liver: The unenhanced liver is normal in size, contour, and attenuation. There is no intrahepatic biliary ductal dilatation. Gallbladder: Surgically absent. Spleen: Normal in size and attenuation. Pancreas: The unenhanced pancreas is moderately atrophic and grossly unremarkable. Adrenal glands: A 2 cm left adrenal adenoma is unchanged. The right adrenal gland is normal in appearance. Kidneys: The unenhanced kidneys demonstrate mild cortical atrophy and are without hydronephrosis. There are no renal calculi identified. A 1.9 cm exophytic cyst arises from the right upper pole. Abdominal vasculature: The abdominal aorta is normal in course and caliber noting moderate to advanced atherosclerotic calcification. Bowel: The there is moderate to advanced colonic diverticulosis. There is wall thickening with pericolonic inflammation and fluid seen involving the proximal sigmoid consistent with acute diverticulitis. No organized fluid collection is suggested to indicate abscess. A giant diverticulum is again noted in the sigmoid on image #294. No bowel obstruction is seen. Mild fecal retention is noted throughout the colon. The appendix is not clearly visualized. Peritoneum: There is no intraperitoneal free air or abdominal ascites. There is evidence of previous ventral hernia repair. A fat-containing supraumbilical hernia is seen on image #207. Lymphadenopathy: None. Pelvic viscera: The bladder and uterus are normal as visualized. A 1.8 cm simple cystic focus in the right ovary is unchanged. Skeletal structures: The skeletal structures are osteopenic. Sclerotic change is noted in the sacroiliac joints and pubic symphysis. There is mild to moderate lumbosacral spondylosis. A hemangioma is noted in the body of T12. No lytic or blastic lesions are seen. IMPRESSION: 1. Moderate to advanced colonic diverticulosis with evidence of acute diverticulitis involving the proximal sigmoid. 2. No intraperitoneal free air is seen and there is no organized fluid collection identified on this unenhanced examination to suggest abscess. 3. Cardiomegaly. 4. Additional findings as above. ACT 112: Negative or not required by law. Electronically signed by: Pepito Guillen M.D. 07/28/2020 1:48 PM Dictated: 07/28/201338 Transcribed: 07/28/201338 Hospital Course (1) Acute diverticulitis of intestine: This is an 79yo F with a PMH of DM type II, asthma, COPD, chronic hypoxic respiratory failure on home O2, paroxysmal atrial fibrillation status post watchman procedure not anticoagulated due to history of GI bleeding, chronic diastolic CHF, GIST tumor under surveillance and other problems listed below who presents the ED for rectal bleeding and was found to have acute diverticulitis. -Recently admitted in late May-June for diverticulitis and completed course of antibiotic. Also treated with erythromycin and antiemetics for gastroparesis with significant improvement -Endorsing 2 episodes of BRBPR this morning prior to arrival. Hgb of 10 (baseline) - repeat CBC in AM -CT abd/pelvis showed moderate to advanced colonic diverticulosis with evidence of acute diverticulitis involving the proximal sigmoid. - Gastro on board -No plan for repeat EGD/Colon given benign findings in April 2020 -hemoglobin improved from 7.8 to 8.8 today -Tolerated diet -Continue abx with Cipro and flagyl to complete 10 days course -Followup with [facility] as scheduled for EUS of Gastric GIST -Clinically improves significantly (2) Gastroparesis: Improved from previous admission. Continue antiemetics as needed (avoid Zofran while on Cipro -QT prolongation interaction), Prilosec and bowel regimen No complaints of nausea and/or vomiting Denies any nausea and/or vomiting (3) COPD (chronic obstructive pulmonary disease): No acute exacerbation (4) Asthma: Continue duonebs, albuterol inhaler, Combivent QID, Incruse Ellipta, Zafirlukast (5) Diabetes mellitus, type 2: A1c of 6 in Jun 2020 Home DM on hold during hospital course Continue insulin sliding scale Continue monitor BS (6) Paroxysmal atrial fibrillation: Not on anticoagulation due to history of GI bleeding Continue diltiazem (7) Chronic diastolic CHF (congestive heart failure): Euvolemic on exam. Continue home dose Lasix DVT Ppx: SCDs Code status: FULL PCP: [place] Dispo: Admitted to [facility]. Plan to return home once medically stable. Disposition Will discharge home today Total Time Total Time Spent Total Time Spent (In Minutes): 35 minutes Total Time Includes: Examination of the Patient, Discharge Planning, Medication Reconciliation, Communication With Other Providers and Other Discharge Plan Discharge Items Patient Disposition: Home - Home Health Services Reason For Visit: ACUTE DIVERTICULITIS Discharge Diagnosis: Acute diverticulitis of intestine: Gastroparesis: COPD (chronic obstructive pulmonary disease): Diabetes mellitus, type 2: Activity: Resume your previous activity Non-emergency contact: Primary Care Provider Call non-emergency contact if: you have any medication questions and your temperature is above 101 Follow-up/Referrals: Marcela Pinto MD [Primary Care Provider] - (Date & Time 08/08/2020 11:20 AM Provider Marcela Pinto MD Department General Internal Medicine [facility] ) Diet: Carb Consistent or DM2 and Low Fiber Addtl Attending Provider Instructions: Follow up with your primary care provider Dr. Pinto on on 08/08 @ 11:20 AM Complete the course of the antibiotic with cipro and flagyl Continue oxygen supplement Fall precaution Pending Studies at Discharge: No Stand-Alone Forms: My [facility] [employer], Smoking Cessation Medications and DC Order Prescriptions: New ciprofloxacin HCl 500 mg Tablet 500 mg PO BID 5 Days Qty: 10 RF: 0 metronidazole 500 mg Tablet 500 mg PO TID 5 Days Qty: 15 RF: 0 Continued (DME) Oxygen Home Liters Per Minute See Rx Instructions .ROUTE .MEDSUPPLY Qty: 1 RF: 0 multivitamin Tablet 1 tab PO QAM RF: 0 promethazine 25 mg Tablet 25 mg PO Q6H PRN (Reason: nausea and vomiting) Qty: 60 RF: 0 dicyclomine 20 mg Tablet 20 mg PO BID 30 Days Qty: 60 RF: 0 atorvastatin 40 mg Tablet 40 mg PO HS RF: 0 zafirlukast 20 mg Tablet 20 mg PO QAM RF: 0 docusate sodium 100 mg Capsule 100 mg PO QAM RF: 0 omeprazole 20 mg Capsule,Delayed Release(Dr/Ec) 20 mg PO BID RF: 0 cholecalciferol (vitamin D3) [Vitamin D3] 1,000 unit Capsule 1,000 unit PO QAM RF: 0 ferrous sulfate [iron] 325 mg (65 mg iron) tablet 325 mg PO QAM RF: 0 glimepiride 4 mg tablet 2 mg PO QAM RF: 0 albuterol sulfate 2.5 mg /3 mL (0.083 %) Solution For Nebulization 2.5 mg INHALATION BID PRN (Reason: .WORSENING ASTHMA) RF: 0 Azopt 1 % Drops,Suspension 1 drp OPB BID RF: 0 Combivent Respimat 20-100 mcg/actuation Mist 1 puff INHALATION QID RF: 0 Lumigan 0.01 % drops 1 drp OPB HS RF: 0 polyethylene glycol 3350 [Miralax] 17 gram/dose Powder 17 g PO BID PRN (Reason: Constipation) RF: 0 albuterol sulfate [Ventolin HFA] 90 mcg/actuation HFA aerosol inhaler 2 puff INHALATION QID PRN (Reason: Shortness Of Breath) RF: 0 diltiazem HCl 240 mg capsule,extended release 24hr 240 mg PO QAM RF: 0 furosemide 40 mg tablet 40 mg PO DAILY RF: 0 methimazole 5 mg tablet 5 mg PO QAM RF: 0 potassium chloride [Klor-Con M20] 20 mEq tablet,ER particles/crystals 10 meq PO DAILY RF: 0 Incruse Ellipta 62.5 mcg/actuation Blister With Device 1 inh INHALATION DAILY RF: 0 hydrocodone-acetaminophen 5-325 mg Tablet 1 tab PO Q6H PRN (Reason: Pain) RF: 0 Probiotic 3 billion cell Capsule 3,000 mmu cells PO DAILY RF: 0 Discharge Orders: Discharge Order (Routine); Ordered 08/02/20 Ordered By: [place] Admission Data Admit Date/Time: 07/28/20 16:11 Attending Provider: [place] Admit Provider: Manuel Hutchinson Primary Care Provider: Marcela Pinto Other Providers: Manuel Hutchinson ; Marycarmen Adame ; Katerin Unger Other Interventions: Discharge Summary Assessment (RN) Last Done: 08/02/20 17:12
== END 2020-08-02 18:03 | disposition home health service (06) | DRG 392 ==
LOC: ED 11:08 → SUATTDRO 16:11 → 2N 16:11

== ENCOUNTER 2021-02-24 14:40 | Inpatient (IN) ==
--- NOTE | 2021-02-24 14:59 | Emergency Department Note ---
Impression & Plan Chronic diastolic CHF (congestive heart failure), KULKARNI (dyspnea on exertion) ED Provider Note NAME: SAVITA YANG AGE: 80 SEX: F : 1940 ARRIVES VIA: Walk-In INFORMANT: Patient, ED PROVIDER(S): Ruben Mason MD Chief Complaint: Shortness of breath HPI: Patient does present with concern for shortness of breath which is chronic in nature but has been worsening over the last 3 to 4 days. Patient has noticed some mild lower extremity edema which is changed from prior with associated orthopnea. The patient does complain of KULKARNI. No prior history of DVT or PE. The patient did have an admission at [facility] in December she states that she had a cardiac catheterization which did not require stenting and she states that she had "checks of her lungs." Patient denies any prior history of DVT or PE. Patient denies any calf pain recent surgeries or procedures. The patient has been compliant with her medications. Patient does wear chronic oxygen 2 L during the day and 4 L at night. The patient does have a history of A. fib for which she does take rate control medication. The patient is on aspirin but no other blood thinning medications. Patient denies any fevers or chills. Patient has been vaccinated for Covid. Patient states that even increasing her oxygen does not seem to improve her symptoms. The patient states that a week ago she could go to use the bathroom without any issues but now she is very short of breath. Patient does not have any history of smoking but does have a history of asthma and COPD. Patient does have a history of CHF and is taking 40 mg of Lasix nightly. ROS: See HPI for pertinent positives and negatives. A total of 10 systems were reviewed and otherwise negative. Past medical history: See below Surgical history: See below Social history: See below Physical Exam: GENERAL: Mildly uncomfortable in appearance, nasal cannula mask in place. EYE EXAM: Normal conjunctiva. PERRL, no anisocoria and EOM's grossly intact w/o pain. NECK: Supple, no nuchal rigidity, no adenopathy, non-tender. No signs of meningismus. Not stridulous LUNGS: Decreased breath sounds throughout. Normal chest wall mechanics. HEART: Tachycardic irregularly irregular, no MRG. ABDOMEN: Abdomen soft, non-tender, normo-active bowel sounds, no masses, no rebound or guarding. BACK: No CVA TTP. SKIN: No rashes and no bruising. UPPER EXTREMITIES: Upper extremities are grossly normal. LOWER EXTREMITIES: Grossly normal, trace symmetric bilateral pretibial edema without erythema or calf pain. NEURO EXAM: A&O x3, cranial nerves II-XII grossly intact, normal speech, moves all 4 extremities on command w/o issue. Differential diagnoses: Reactive airway disease, pneumonia, pneumothorax, COPD, CHF, infections, cardiac ischemia, pulmonary embolism, musculoskeletal, gastrointestinal, as well as other pathologies. Course: Patient was seen and evaluated the bedside. Full history physical exam was performed. EKG interpreted by me Indication: Shortness of breath A. fib, rate of 87, wide QRS, left axis deviation. Imaging Studies: See below Cardiac monitoring: An order was placed for continuous cardiac monitoring. The monitor shows a rate of 105 with regular rhythm. MDM: Patient was seen due to concern for shortness of breath. Blood work was obtained along with a VBG. Has not had any cough or fever. Patient also did have chest x-ray completed. Patient is awake and a 13 with a normal H&H and platelet count. The patient's VBG does show chronic hypercarbia but relatively normal VBG pH is 7.36. Elevated bicarb likely consistent with the chronic COPD and oxygen use. The patient had initially been given a dose of Lasix. BNP is at 1100 with a troponin that is undetectable. Urinalysis negative for obvious infection or blood. Chest x-ray does show possible pulmonary hypertension. I discussed with patient this could be driving some of her symptoms. This could also contribute to some CHF. The patient did undergo an ambulatory trial and while she did not have oxygen desaturations the patient did become more tachycardic, tachypneic and was not able to do a prolonged ambulatory trial. I did speak with the on-call hospitalist Claudia Jarrell PA-C and the patient was admitted to Dr. Dela Cruz with [facility]. Past Med/Surg History Medical History Abnormal finding on thyroid function test Acute blood loss anemia Aortic valve stenosis, mild Asthma Chronic diastolic CHF (congestive heart failure) COPD (chronic obstructive pulmonary disease) Diabetes mellitus, type 2 Diverticulitis Esophageal reflux Glaucoma of both eyes Hyperlipidemia Hypertension Hyperthyroidism PLACED ON NEW MED-F/U AYANA VIVEROS PA-C [facility] Lower GI bleed Nocturnal hypoxemia On home oxygen therapy 2L N/C at all times and 4 L N/C at night Paroxysmal atrial fibrillation s/p Watchman's procedure - not anticoagulated due to GI bleed Sleep apnea Surgical History H/O colonoscopy "04/2014 - diverticular disease throughout colon, internal hemorrhoids, polyp removed" History of appendectomy History of cardiac cath "YEARS AGO"NO BLOCKAGES/NO STENTS-F/U DR THOMSON History of cholecystectomy History of dilatation and curettage History of esophagogastroduodenoscopy (EGD) "04/2014 - normal" History of incisional hernia repair History of tooth extraction all teeth Hx of small bowel obstruction "11/2017 - Seen [facility] - surgical intervention" Nausea and vomiting after administration of anesthetic agent Presence of Watchman left atrial appendage closure device 11/2019 @ [facility] [address] 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 Beliefs That Will Affect Care: None marital status: / Current Living Situation: Alone Feels Safe at Home: Yes Assistive Devices: Denture - Upper, Glasses, Oxygen - at Night, Oxygen - Continuous and Wheelchair Allergies Allergies Allergy/AdvReac Type Severity Reaction Status Date / Time salmon oil Allergy Severe HIVES-REDDENED Verified 09/11/20 12:59 ALL OVER Iodinated Contrast Media Allergy Intermediate HIVES-GI Verified 09/11/20 12:59 SYMPTOMS lisinopril Allergy Intermediate FAST HEART Verified 09/11/20 12:59 BEAT valsartan Allergy Intermediate FAST HEART Verified 09/11/20 12:59 BEAT bupropion AdvReac Mild GI SYMPTOMS Verified 09/11/20 12:59 enalapril AdvReac Mild GI SYMPTOMS Verified 09/11/20 12:59 escitalopram AdvReac Mild GI SYMPTOMS Verified 09/11/20 12:59 metoprolol AdvReac Mild LOWERS Verified 09/11/20 12:59 PULSE RATE verapamil AdvReac Mild GI UPSET, Verified 09/11/20 12:59 fast heart rate Home Meds Home Medications Medication Instructions Recorded Confirmed atorvastatin 40 mg PO HS 06/23/19 02/24/21 cholecalciferol (vitamin D3) 1,000 unit PO QAM 06/23/19 02/24/21 [Vitamin D3] docusate sodium 100 mg PO QAM 06/23/19 02/24/21 omeprazole 20 mg PO BID 06/23/19 02/24/21 Lumigan 1 drp OPB HS 09/25/19 02/24/21 albuterol sulfate 2.5 mg INHALATION BID PRN 09/25/19 02/24/21 brinzolamide [Azopt] 1 drp OPB BID 09/25/19 02/24/21 polyethylene glycol 3350 [Miralax] 17 g PO BID PRN 09/25/19 02/24/21 ferrous sulfate 325 mg (65 mg 325 mg PO QAM tab 02/23/20 02/24/21 iron) tablet glimepiride 4 mg tablet 2 mg PO QAM tab 02/23/20 02/24/21 multivitamin 1 tab PO QAM 06/02/20 02/24/21 Probiotic 3,000 mmu cells PO QAM 07/28/20 02/24/21 hydrocodone-acetaminophen 1 tab PO Q6H PRN 07/28/20 02/24/21 potassium chloride [Klor-Con M20] 10 meq PO QAM 07/28/20 02/24/21 zafirlukast 20 mg tablet 20 mg PO QAM 09/11/20 02/24/21 aspirin 81 mg tablet,delayed 81 mg PO DAILY 02/05/21 02/24/21 release carvedilol 3.125 mg tablet 3.125 mg PO BID 02/05/21 02/24/21 diltiazem HCl 360 mg capsule,24 120 mg PO DAILY 02/05/21 02/24/21 hr,extended release furosemide 40 mg tablet 40 mg PO BID tab 02/05/21 02/24/21 lisinopril 2.5 mg tablet 2.5 mg PO DAILY 02/05/21 02/24/21 Previous Rx's Medication Instructions Recorded dicyclomine 20 mg PO BID 30 Days #60 tab 06/16/20 promethazine 25 mg PO Q6H PRN #60 tab 06/16/20 albuterol sulfate 90 mcg/actuation 2 puff INHALATION QID PRN #6.7 g 10/30/20 aerosol inhaler tiotropium bromide 2.5 2 puff INHALATION DAILY #1 inhaler 02/05/21 mcg/actuation mist for inhalation Results & Data (ED) Vital Signs Vital Signs - 24 hr 02/24/21 14:52 02/24/21 15:32 02/24/21 15:37 Temperature 36.8 C Temperature Source Temporal Artery Scan Pulse Rate 89 80 Pulse Rate from SpO2 Sensor 79 Respiratory Rate 20 21 Respiratory Effort / Characteristics Non-Labored Spontaneous Non-Labored Respiratory Depth Normal Normal Blood Pressure 114/59 L Blood Pressure Mean 77 Pulse Oximetry 100 98 Oxygen Delivery Method Nasal Cannula Oxygen Flow Rate 3 Sepsis Recent Fever Within 48 Hours No Sepsis New/Unexplained Change in Mental Status N/A Sepsis Action Taken by Nursing No Action Required 02/24/21 15:40 02/24/21 15:41 02/24/21 15:50 Temperature Temperature Source Pulse Rate 84 92 H Pulse Rate from SpO2 Sensor 77 83 Respiratory Rate 20 16 Respiratory Effort / Characteristics Respiratory Depth Blood Pressure Blood Pressure Mean Pulse Oximetry 99 98 98 Oxygen Delivery Method Nasal Cannula Oxygen Flow Rate 4 Sepsis Recent Fever Within 48 Hours Sepsis New/Unexplained Change in Mental Status Sepsis Action Taken by Nursing 02/24/21 15:55 02/24/21 16:00 02/24/21 16:01 Temperature Temperature Source Pulse Rate 85 87 79 Pulse Rate from SpO2 Sensor 83 85 79 Respiratory Rate 15 20 18 Respiratory Effort / Characteristics Respiratory Depth Blood Pressure 122/75 138/73 Blood Pressure Mean 90 94 Pulse Oximetry 97 98 98 Oxygen Delivery Method Nasal Cannula Nasal Cannula Nasal Cannula Oxygen Flow Rate 4 4 4 Sepsis Recent Fever Within 48 Hours Sepsis New/Unexplained Change in Mental Status Sepsis Action Taken by Nursing 02/24/21 16:10 02/24/21 16:20 02/24/21 16:30 Temperature Temperature Source Pulse Rate 88 111 H 88 Pulse Rate from SpO2 Sensor 87 96 H 79 Respiratory Rate 20 Respiratory Effort / Characteristics Respiratory Depth Blood Pressure Blood Pressure Mean Pulse Oximetry 99 96 Oxygen Delivery Method Nasal Cannula Nasal Cannula Oxygen Flow Rate 4 4 Sepsis Recent Fever Within 48 Hours Sepsis New/Unexplained Change in Mental Status Sepsis Action Taken by Nursing 02/24/21 16:31 02/24/21 16:40 02/24/21 16:50 Temperature Temperature Source Pulse Rate 86 94 H Pulse Rate from SpO2 Sensor 107 H 91 H Respiratory Rate 25 H 18 Respiratory Effort / Characteristics Respiratory Depth Blood Pressure 114/77 Blood Pressure Mean 89 Pulse Oximetry 100 98 96 Oxygen Delivery Method Oxygen Flow Rate Sepsis Recent Fever Within 48 Hours Sepsis New/Unexplained Change in Mental Status Sepsis Action Taken by Retirement Medications Current Medication List: was personally reviewed by me Laboratory Data Attestation: I reviewed the patient's lab results. Result diagrams: 02/24/21 15:28 02/24/21 15:28 Lab Results 02/24/21 02/24/21 02/24/21 Range/Units 15:28 15:28 15:28 WBC 13.02 H (4.8-10.8) K/uL RBC 4.20 (4.2-5.4) M/uL Hgb 12.1 (12.0-16.0) g/dL Hct 38.8 (37-47) % MCV 92.4 (80-100) fL MCH 28.8 (25-34) pg MCHC 31.2 L (32-36) g/dL RDW Std Deviation 50.4 H (36.4-46.3) fL RDW Coeff of Jesika 14.8 H (11.5-14.5) % Plt Count 409 H (130-400) K/uL MPV 9.6 (7.4-10.4) fL Immature Gran % (Auto) 0.3 % Neut % (Auto) 61.7 % Lymph % (Auto) 25.7 % [place] % (Auto) 8.8 % Eos % (Auto) 3.3 % Baso % (Auto) 0.2 % Neut # (Auto) 8.02 H (1.4-6.5) K/uL Lymph # (Auto) 3.35 (1.2-3.4) K/uL [place] # (Auto) 1.15 H (0.11-0.59) K/uL Eos # (Auto) 0.43 (0-0.5) K/uL Baso # (Auto) 0.03 (0-0.2) K/uL Immature Gran # (Auto) 0.04 H (0.00-0.02) K/uL PT 10.3 (9.0-12.0) Seconds INR 1.0 (0.9-1.1) APTT 25.8 (21.0-31.0) Seconds PTT Ratio 1.0 VBG pH (7.36-7.41) VBG pCO2 (38-50) mmHg VBG pO2 mmHg VBG HCO3 mmol/L VBG O2 Saturation % VBG Base Excess mEq/L Barometric Pressure mm/Hg Sodium 139 (136-145) mmol/L Potassium 4.5 (3.5-5.1) mmol/L Chloride 101 (98-107) mmol/L Carbon Dioxide 35 H (21-32) mmol/L Anion Gap 3.0 (3-11) BUN 22 H (7-18) mg/dl Creatinine 0.93 (0.6-1.2) mg/dl Est Cr Clr Drug Dosing 59.5 ml/min Est GFR ( Amer) 66.3 ml/min Est GFR (Non-Af Amer) 57.2 ml/min BUN/Creatinine Ratio 23.4 H (10-20) Glucose 134 H (70-99) mg/dl Calcium 9.4 (8.5-10.1) mg/dl Phosphorus 3.8 (2.5-4.9) mg/dl Magnesium 2.2 (1.8-2.4) mg/dl Total Bilirubin 0.4 (0.2-1) mg/dl AST 10 L (15-37) U/L ALT 12 (12-78) U/L Alkaline Phosphatase 150 H (45-117) U/L Troponin I < 0.015 (0-0.045) ng/ml NT-Pro-B Natriuret Pep 1105 (0-1800) pg/ml Total Protein 8.0 (6.4-8.2) gm/dl Albumin 3.4 (3.4-5.0) gm/dl Globulin 4.6 H (2.5-4.0) gm/dl Albumin/Globulin Ratio 0.7 L (0.9-2) Urine Color Urine Appearance (Clear) Urine pH (4.5-7.5) Ur Specific [place] (1.000-1.030) Urine Protein (Negative) Urine Glucose (UA) (Negative) Urine Ketones (Negative) Urine Blood (Negative) Urine Nitrite (Negative) Urine Bilirubin (Negative) Urine Urobilinogen (Negative) Ur Leukocyte Esterase (Negative) Urine WBC (Auto) (0-5) /hpf Urine RBC (Auto) (0-4) /hpf U Hyaline Cast (Auto) (0-5) /lpf U Epithel Cells (Auto) (0-5) /lpf Urine Bacteria (Auto) (Negative) Urine Yeast 02/24/21 02/24/21 Range/Units 15:28 16:40 WBC (4.8-10.8) K/uL RBC (4.2-5.4) M/uL Hgb (12.0-16.0) g/dL Hct (37-47) % MCV (80-100) fL MCH (25-34) pg MCHC (32-36) g/dL RDW Std Deviation (36.4-46.3) fL RDW Coeff of Jesika (11.5-14.5) % Plt Count (130-400) K/uL MPV (7.4-10.4) fL Immature Gran % (Auto) % Neut % (Auto) % Lymph % (Auto) % [place] % (Auto) % Eos % (Auto) % Baso % (Auto) % Neut # (Auto) (1.4-6.5) K/uL Lymph # (Auto) (1.2-3.4) K/uL [place] # (Auto) (0.11-0.59) K/uL Eos # (Auto) (0-0.5) K/uL Baso # (Auto) (0-0.2) K/uL Immature Gran # (Auto) (0.00-0.02) K/uL PT (9.0-12.0) Seconds INR (0.9-1.1) APTT (21.0-31.0) Seconds PTT Ratio VBG pH 7.36 (7.36-7.41) VBG pCO2 66 H (38-50) mmHg VBG pO2 34 mmHg VBG HCO3 37 mmol/L VBG O2 Saturation 66.5 % VBG Base Excess 8.8 mEq/L Barometric Pressure 737.6 mm/Hg Sodium (136-145) mmol/L Potassium (3.5-5.1) mmol/L Chloride (98-107) mmol/L Carbon Dioxide (21-32) mmol/L Anion Gap (3-11) BUN (7-18) mg/dl Creatinine (0.6-1.2) mg/dl Est Cr Clr Drug Dosing ml/min Est GFR ( Amer) ml/min Est GFR (Non-Af Amer) ml/min BUN/Creatinine Ratio (10-20) Glucose (70-99) mg/dl Calcium (8.5-10.1) mg/dl Phosphorus (2.5-4.9) mg/dl Magnesium (1.8-2.4) mg/dl Total Bilirubin (0.2-1) mg/dl AST (15-37) U/L ALT (12-78) U/L Alkaline Phosphatase (45-117) U/L Troponin I (0-0.045) ng/ml NT-Pro-B Natriuret Pep (0-1800) pg/ml Total Protein (6.4-8.2) gm/dl Albumin (3.4-5.0) gm/dl Globulin (2.5-4.0) gm/dl Albumin/Globulin Ratio (0.9-2) Urine Color Yellow Urine Appearance Clear (Clear) Urine pH 7.0 (4.5-7.5) Ur Specific [place] 1.011 (1.000-1.030) Urine Protein Negative (Negative) Urine Glucose (UA) Negative (Negative) Urine Ketones Negative (Negative) Urine Blood Negative (Negative) Urine Nitrite Negative (Negative) Urine Bilirubin Negative (Negative) Urine Urobilinogen Negative (Negative) Ur Leukocyte Esterase 2+ H (Negative) Urine WBC (Auto) 1-5 (0-5) /hpf Urine RBC (Auto) 0-4 (0-4) /hpf U Hyaline Cast (Auto) 0 (0-5) /lpf U Epithel Cells (Auto) 20-30 H (0-5) /lpf Urine Bacteria (Auto) Negative (Negative) Urine Yeast Not Reportable Administered Medications Discontinued Medications Furosemide (Furosemide 40 Mg/4 Ml Vial) 40 mg IV NOW STA Stop: 02/24/21 15:05 Last Admin: 02/24/21 15:52 Dose: 40 mg Documented by: [id number] Imaging Data Radiologist's Impression: Chest X-Ray 02/24/21 15:04 XR chest 1V portable CLINICAL HISTORY: Dyspnea COMPARISON STUDY: 06/08/2020 FINDINGS: The heart remains borderline enlarged. There is prominence of central pulmonary arteries suggesting pulmonary arterial hypertension. There is a stable linear band of atelectasis/scarring at the left lung base. There is no failure. There is no acute parenchymal consolidation.[ IMPRESSION: No significant change from the preceding study. No acute findings ACT 112: Negative or not required by law. Electronically signed by: Gonzalo Lyon M.D. 02/24/2021 3:48 PM Discharge Plan Visit Data Chief Complaint: Shortness of Breath/Dyspnea Stated Complaint: SOB ED Provider: Ruben Mason Discharge Problem: Chronic diastolic CHF (congestive heart failure), KULKARNI (dyspnea on exertion) Forms Stand Alone Forms: [facility] [employer] Prescriptions Prescriptions: No Action albuterol sulfate [Ventolin HFA] 90 mcg/actuation HFA aerosol inhaler 2 puff INHALATION QID PRN (Reason: Shortness Of Breath) Qty: 6.7 RF: 6 aspirin [Aspirin Low Dose] 81 mg tablet,delayed release (DR/EC) 81 mg PO DAILY RF: 0 carvedilol [Coreg] 3.125 mg tablet 3.125 mg PO BID RF: 0 lisinopril 2.5 mg tablet 2.5 mg PO DAILY RF: 0 diltiazem HCl 360 mg capsule,extended release 24 hr 120 mg PO DAILY RF: 0 Spiriva Respimat 2.5 mcg/actuation mist 2 puff inhalation DAILY Qty: 1 RF: 11 multivitamin Tablet 1 tab PO QAM RF: 0 promethazine 25 mg Tablet 25 mg PO Q6H PRN (Reason: nausea and vomiting) Qty: 60 RF: 0 dicyclomine 20 mg Tablet 20 mg PO BID 30 Days Qty: 60 RF: 0 atorvastatin 40 mg Tablet 40 mg PO HS RF: 0 docusate sodium 100 mg Capsule 100 mg PO QAM RF: 0 omeprazole 20 mg Capsule,Delayed Release(Dr/Ec) 20 mg PO BID RF: 0 cholecalciferol (vitamin D3) [Vitamin D3] 1,000 unit Capsule 1,000 unit PO QAM RF: 0 ferrous sulfate [iron] 325 mg (65 mg iron) tablet 325 mg PO QAM RF: 0 glimepiride 4 mg tablet 2 mg PO QAM RF: 0 zafirlukast 20 mg tablet 20 mg PO QAM RF: 0 albuterol sulfate 2.5 mg /3 mL (0.083 %) Solution For Nebulization 2.5 mg INHALATION BID PRN (Reason: .WORSENING ASTHMA) RF: 0 brinzolamide [Azopt] 1 % Drops,Suspension 1 drp OPB BID RF: 0 Lumigan 0.01 % drops 1 drp OPB HS RF: 0 polyethylene glycol 3350 [Miralax] 17 gram/dose Powder 17 g PO BID PRN (Reason: Constipation) RF: 0 potassium chloride [Klor-Con M20] 20 mEq tablet,ER particles/crystals 10 meq PO QAM RF: 0 hydrocodone-acetaminophen 5-325 mg Tablet 1 tab PO Q6H PRN (Reason: Pain) RF: 0 Probiotic 3 billion cell Capsule 3,000 mmu cells PO QAM RF: 0 furosemide 40 mg tablet 40 mg PO BID RF: 0
[2021-02-24] MEDS ORDERED: FUROSEMIDE 40 MG/4 ML VIAL IV STA (15:04)
[2021-02-24 15:40] LABS: Basophils # (auto) 0.03 K/uL (0-0.2); Basophils % (auto) 0.2 %; Eosinophils # (auto) 0.43 K/uL (0-0.5); Eosinophils % (auto) 3.3 %; Hematocrit (blood only) 38.8 % (37-47); Hemoglobin 12.1 g/dL (12.0-16.0); Immature Granulocytes # (auto) 0.04 K/uL (0.00-0.02); Immature Granulocytes % (auto) 0.3 %; Lymphocytes # (auto) 3.35 K/uL (1.2-3.4); Lymphocytes % (auto) 25.7 %; Mean Corpuscular Hemoglobin 28.8 pg (25-34); Mean Corpuscular Hgb Conc 31.2 g/dL (32-36); Mean Corpuscular Volume 92.4 fL (80-100); Mean Platelet Volume 9.6 fL (7.4-10.4); Monocytes # (auto) 1.15 K/uL (0.11-0.59); Monocytes % (auto) 8.8 %; Neutrophils # (auto) 8.02 K/uL (1.4-6.5); Neutrophils % (auto) 61.7 %; Platelet Count 409 K/uL (130-400); RDW Coefficient of Variation 14.8 % (11.5-14.5); RDW Standard Deviation 50.4 fL (36.4-46.3); White Blood Count 13.02 K/uL (4.8-10.8)
[2021-02-24 15:43] LABS: Base Excess VBG 8.8 mEq/L; Oxygen Saturation VBG 66.5 %; pH VBG 7.36 (7.36-7.41)
--- NOTE | 2021-02-24 15:49 | XRay Report ---
XR chest 1V portable CLINICAL HISTORY: Dyspnea COMPARISON STUDY: 06/08/2020 FINDINGS: The heart remains borderline enlarged. There is prominence of central pulmonary arteries espinosa ggesting pulmonary arterial hypertension. There is a stable linear band of atelectasis/scarring at th e left lung base. There is no failure. There is no acute parenchymal consolidation.[ IMPRESSION: No significant change from the preceding study. No acute findings ACT 112: Negative or not required by law. Electronically signed by: Gonzalo Lyon M.D. 02/24/2021 3:48 PM
[2021-02-24 15:51] LABS: Partial Thromboplastin Time 25.8 Seconds (21.0-31.0); Prothrombin Time 10.3 Seconds (9.0-12.0)
[2021-02-24 16:03] LABS: Alanine Aminotransferase 12 U/L (12-78); Albumin Level 3.4 gm/dl (3.4-5.0); Aspartate Aminotransferase 10 U/L (15-37); BUN Creatinine Ratio 23.4 (10-20); Blood Urea Nitrogen 22 mg/dl (7-18); Calcium 9.4 mg/dl (8.5-10.1); Carbon Dioxide 35 mmol/L (21-32); Chloride 101 mmol/L (98-107); Creatinine Clr Calc Pharmacy 59.5 ml/min; Est GFR (African American) 66.3 ml/min; Est GFR (Non-African American) 57.2 ml/min; Glucose 134 mg/dl (70-99); Magnesium 2.2 mg/dl (1.8-2.4); Potassium 4.5 mmol/L (3.5-5.1); Sodium 139 mmol/L (136-145)
[2021-02-24 16:08] LABS: Albumin Globulin Ratio 0.7 (0.9-2); Alkaline Phosphatase 150 U/L (45-117); Bilirubin,Total 0.4 mg/dl (0.2-1); Globulin 4.6 gm/dl (2.5-4.0); NT Pro B Type Natriuretic Pept 1105 pg/ml (0-1800); Phosphorus 3.8 mg/dl (2.5-4.9); Troponin I < 0.015 ng/ml (0-0.045)
--- NOTE | 2021-02-24 16:41 | Electrocardiogram Report ---
Test Reason : Blood Pressure : / mmHG Vent. Rate : 087 BPM Atrial Rate : 053 BPM P-R Int : 000 ms QRS Dur : 124 ms QT Int : 398 ms P-R-T Axes : 000 -49 068 degrees QTc Int : 478 ms Poor data quality, interpretation may be adversely affected Atrial fibrillation Left anterior fascicular block Abnormal ECG When compared with ECG of 01-SEP-2020 09:13, ST no longer depressed in Lateral leads Confirmed by Samuel Thomas ([id number]) on 02/24/2021 4:40:47 PM Referred By: REFERRED SELF Confirmed By:Jigar Thomas
[2021-02-24 17:02] LABS: Appearance Urine Clear (Clear); Bacteria Urine Automated Negative (Negative); Bilirubin Urine Negative (Negative); Blood Urine Negative (Negative); Cast Urine Automated 0 /lpf (0-5); Color Urine Yellow; Epithelial Cell Urine Auto 20-30 /lpf (0-5); Glucose Urine UA Negative (Negative); Ketones Urine Negative (Negative); Leukocyte Esterase Urine 2+ (Negative); Nitrite Urine Negative (Negative); Protein Urine Negative (Negative); Specific Gravity Urine 1.011 (1.000-1.030); Urobilinogen Urine Negative (Negative)
[2021-02-24 17:17] LABS: RBC Urine Automated 0-4 /hpf (0-4)
--- NOTE | 2021-02-24 18:02 | History & Physical Report ---
Date of Service February 24, 2021 Assessment & Plan (1) Acute decompensated heart failure: This is an 80yo F with a PMH of asthma, COPD, chronic hypoxic respiratory failure on 2L NC O2, JORDAN intolerant to CPAP, DM type II, paroxysmal atrial fibrillation status post watchman procedure not anticoagulated due to history of GI bleeding, chronic diastolic CHF, GIST tumor under surveillance and other problems listed below who presents the ED with dyspnea on exertion over the past 3 days. Orthopnea, PND, dyspnea on exertion for the past 3 days in setting of recent medication change of decreasing Lasix dose now 40mg daily Was admitted to [facility] and found to have acute decompensated CHF TTE performed at that time with estimated EF: 35-40%, mild , mild MS, mod MR, borderline pulm HTN with est pulmonary artery systolic pressure is 44 mmHg, grade 1 diastolic dysfunction Started on Coreg 3.125 mg twice daily and lisinopril 2.5 mg daily at that time Requested records from [facility] admission, Dr. Thomson Given 40mg IV Lasix in ED. Plan to continue 40mg IV BID Strict I&Os, daily weights, sánchez catheter Continue Coreg, lisinopril Repeat TTE Cardiology consult Supplemental O2 as needed (2) Acute on chronic respiratory failure with hypoxia and hypercapnia: (3) COPD (chronic obstructive pulmonary disease): (4) Asthma: Possible mild COPD exacerbation in setting of recent medication changes ABG findings show chronic respiratory acidosis with compensation - pH 7.4, pCO2 58, HCO3 35 Currently saturating 93% on 4 L nasal cannula; requires 2 L during the day at baseline Started on prednisone 40mg daily, duonebs QIDR Afebrile, no s/sx of infection so will hold off on antibiotics for now Continue supplemental O2 (5) JORDAN (obstructive sleep apnea): Diagnosed with JORDAN in the past but has not trialed CPAP -uses 4 L nasal cannula at bedtime With evidence of chronic CO2 retention on ABG, patient agreeable to trial of CPAP this evening with 4 L nasal cannula O2 bled through Would benefit from outpatient sleep study upon discharge (6) Diabetes mellitus, type 2: Hold home agents SSI while in-patient BSG AC HS (7) Paroxysmal atrial fibrillation: EKG showing a atrial fibrillation with heart rate of 87 p.m. Continue diltiazem Not on anticoagulation due to history of GI bleeding DVT Ppx: SCDs Code status: FULL PCP: Blair Dispo: Admitted to [facility]. Discharge planning ordered. Patient seen in collaboration with Dr. Dela Cruz. Please see addendum. History of Present Illness Chief Complaint: Dyspnea on exertion Primary Care Provider: Marcela Pinto MD This is an 80yo F with a PMH of asthma, COPD, chronic hypoxic respiratory failure on 2L NC O2, JORDAN intolerant to CPAP, DM type II, paroxysmal atrial fibrillation status post watchman procedure not anticoagulated due to history of GI bleeding, chronic diastolic CHF, GIST tumor under surveillance and other problems listed below who presents the ED with dyspnea on exertion over the past 3 days. Has been unable to even do household tasks without becoming extremely short of breath on her baseline 2 L nasal cannula oxygen. Endorsing orthopnea and PND, requiring her to sit upright last night when sleeping. Denies fever, chills. Dry cough. No wheezing but chest feels tight and she is having "difficulty moving air". Denies headache, lightheadedness, recent known sick contacts, nausea, vomiting, abdominal pain, dysuria, diarrhea or constipation. Was admitted to [facility] in November 2020 for A. fib with RVR by denture processor Dr. Thomson in [place]. Was also found to have acute decompensated CHF. Echo performed at that time with estimated EF: 35-40%, mild aortic stenosis, MV with mild stenosis and moderate regurgitation, borderline pulmonary hypertension with estimated pulmonary artery systolic pressure is 44 mmHg, grade 1 diastolic dysfunction and dilated IVC consistent with increased right atrial pressure. Underwent cardiac catheterization at this time that did not show significant blockage. New medications started include Coreg 3.125 mg twice daily and lisinopril 2.5 mg daily. Was discharged on Lasix PO 80mg BID at that time that has been decreased most recently by Dr. Thomson to Lasix 40mg daily within the past few weeks. Diltiazem also decreased to 120mg daily. Also underwent recent medication change with mac artist, having to discontinue Incruse Ellipta. Instructed to start Spiriva but has not filled prescription yet. Taking other inhalers as scheduled. Allergies Allergy/AdvReac Type Severity Reaction Status Date / Time salmon oil Allergy Severe HIVES-REDDENED Verified 09/11/20 12:59 ALL OVER Iodinated Contrast Media Allergy Intermediate HIVES-GI Verified 09/11/20 12:59 SYMPTOMS lisinopril Allergy Intermediate FAST HEART Verified 09/11/20 12:59 BEAT valsartan Allergy Intermediate FAST HEART Verified 09/11/20 12:59 BEAT bupropion AdvReac Mild GI SYMPTOMS Verified 09/11/20 12:59 enalapril AdvReac Mild GI SYMPTOMS Verified 09/11/20 12:59 escitalopram AdvReac Mild GI SYMPTOMS Verified 09/11/20 12:59 metoprolol AdvReac Mild LOWERS Verified 09/11/20 12:59 PULSE RATE verapamil AdvReac Mild GI UPSET, Verified 09/11/20 12:59 fast heart rate Home Medications Medication Instructions Recorded Confirmed Type atorvastatin 40 mg PO HS 06/23/19 02/24/21 History cholecalciferol (vitamin D3) 1,000 unit PO QAM 06/23/19 02/24/21 History [Vitamin D3] docusate sodium 100 mg PO QAM 06/23/19 02/24/21 History omeprazole 20 mg PO BID 06/23/19 02/24/21 History Lumigan 1 drp OPB HS 09/25/19 02/24/21 History albuterol sulfate 2.5 mg INHALATION BID PRN 09/25/19 02/24/21 History brinzolamide [Azopt] 1 drp OPB BID 09/25/19 02/24/21 History polyethylene glycol 3350 [Miralax] 17 g PO BID PRN 09/25/19 02/24/21 History ferrous sulfate 325 mg (65 mg 325 mg PO QAM tab 02/23/20 02/24/21 History iron) tablet glimepiride 4 mg tablet 2 mg PO QAM tab 02/23/20 02/24/21 History multivitamin 1 tab PO QAM 06/02/20 02/24/21 History dicyclomine 20 mg PO BID 30 Days #60 tab 06/16/20 02/24/21 Rx promethazine 25 mg PO Q6H PRN #60 tab 06/16/20 02/24/21 Rx Probiotic 3,000 mmu cells PO QAM 07/28/20 02/24/21 History hydrocodone-acetaminophen 1 tab PO Q6H PRN 07/28/20 02/24/21 History potassium chloride [Klor-Con M20] 10 meq PO QAM 07/28/20 02/24/21 History zafirlukast 20 mg tablet 20 mg PO QAM 09/11/20 02/24/21 History albuterol sulfate 90 mcg/actuation 2 puff INHALATION QID PRN #6.7 g 10/30/20 02/24/21 Rx aerosol inhaler aspirin 81 mg tablet,delayed 81 mg PO DAILY 02/05/21 02/24/21 History release carvedilol 3.125 mg tablet 3.125 mg PO BID 02/05/21 02/24/21 History furosemide 40 mg tablet 40 mg PO DAILY tab 02/05/21 02/24/21 History lisinopril 2.5 mg tablet 2.5 mg PO DAILY 02/05/21 02/24/21 History tiotropium bromide 2.5 2 puff INHALATION DAILY #1 inhaler 02/05/21 02/24/21 Rx mcg/actuation mist for inhalation diltiazem HCl 120 mg PO DAILY 02/24/21 02/24/21 History fluticasone propion-salmeterol 1 inh INHALATION BID 02/24/21 02/24/21 History [Advair Diskus] Past Med/Surg History Medical History (Updated 02/24/21 @ 19:32 by Claudia Jarrell PA-C) Acute blood loss anemia Aortic valve stenosis, mild Asthma Chronic diastolic CHF (congestive heart failure) Chronic respiratory failure with hypoxia and hypercapnia COPD (chronic obstructive pulmonary disease) Diabetes mellitus, type 2 Diverticulitis Esophageal reflux Glaucoma of both eyes Hyperlipidemia Hypertension Hyperthyroidism PLACED ON NEW MED-F/U AYANA VIVEROS PA-C [facility] Lower GI bleed On home oxygen therapy 2L N/C at all times and 4 L N/C at night Paroxysmal atrial fibrillation s/p Watchman's procedure - not anticoagulated due to GI bleed Sleep apnea Subepithelial mass of stomach Surgical History H/O colonoscopy "04/2014 - diverticular disease throughout colon, internal hemorrhoids, polyp removed" History of appendectomy History of cardiac cath "YEARS AGO"NO BLOCKAGES/NO STENTS-F/U DR THOMSON History of cholecystectomy History of dilatation and curettage History of esophagogastroduodenoscopy (EGD) "04/2014 - normal" History of incisional hernia repair History of tooth extraction all teeth Hx of small bowel obstruction "11/2017 - Seen [facility] - surgical intervention" Nausea and vomiting after administration of anesthetic agent Presence of Watchman left atrial appendage closure device 11/2019 @ [facility] [address] 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 Physical Exam Physical Exam: General Appearance: WD/WN, vitals as above, sitting up in bed, pleasant, obese, conversational dyspnea Head: normocephalic, atraumatic Eyes: normal inspection, PERRL, conjunctivae normal, anicteric sclerae ENT: external ear and nose normal, oropharynx normal Neck: normal visual inspection, trachea midline, no thyromegaly Respiratory: increased respiratory effort, poor air movement throughout lungfields. No wheeze, rales, rhonchi. No accessory muscle use Cardiovascular: irregular rate & rhythm, no murmur appreciated, normal peripheral pulses, 1+ BLE edema. Vessels: + JVD Chest: normal inspection of chest Abdomen/GI: normal bowel sounds, soft, nontender, no hepatosplenomegaly Extremities/Musculoskeletal: no cyanosis or clubbing, extremities motor strength 5/5 Neurologic: PERRL, EOMI, accommodation nl, no face palsy, no dysarthria, CN's II-XI intact bilaterally and moves all extremities Psychiatric: A+Ox3, euthymic affect Skin: no rashes, normal color, warm/dry Results & Data Results & Data ([facility]) Vital Signs (Past 12 Hours) Vital Signs Temp Pulse Resp BP Pulse Ox 02/24/21 17:50 83 18 02/24/21 17:40 76 22 99 02/24/21 17:30 90 95 02/24/21 17:20 89 24 98 02/24/21 17:10 83 15 98 02/24/21 17:00 85 19 93 02/24/21 16:50 96 02/24/21 16:40 94 H 18 98 02/24/21 16:31 86 25 H 114/77 100 02/24/21 16:30 88 96 02/24/21 16:20 111 H 20 02/24/21 16:10 88 99 02/24/21 16:01 79 18 98 02/24/21 16:00 87 20 138/73 98 02/24/21 15:55 85 15 122/75 97 02/24/21 15:50 92 H 16 98 02/24/21 15:41 98 02/24/21 15:40 84 20 99 02/24/21 15:37 80 21 98 02/24/21 14:52 36.8 C 89 20 114/59 L 100 Laboratory Results Short CBC 02/24/21 Range/Units 15:28 WBC 13.02 H (4.8-10.8) K/uL Hgb 12.1 (12.0-16.0) g/dL Hct 38.8 (37-47) % Plt Count 409 H (130-400) K/uL BMP 02/24/21 15:28 Sodium 139 Potassium 4.5 Chloride 101 Carbon Dioxide 35 H BUN 22 H Creatinine 0.93 Glucose 134 H Calcium 9.4 Cardiac Enzymes 02/24/21 Range/Units 15:28 Troponin I < 0.015 (0-0.045) ng/ml Liver Function 02/24/21 Range/Units 15:28 Total Bilirubin 0.4 (0.2-1) mg/dl AST 10 L (15-37) U/L ALT 12 (12-78) U/L Alkaline Phosphatase 150 H (45-117) U/L Albumin 3.4 (3.4-5.0) gm/dl Urine 02/24/21 Range/Units 16:40 Urine Color Yellow Urine Appearance Clear (Clear) Urine pH 7.0 (4.5-7.5) Ur Specific [place] 1.011 (1.000-1.030) Urine Protein Negative (Negative) Urine Glucose (UA) Negative (Negative) Diagnostic Findings Chest X-Ray 02/24/21 15:04 XR chest 1V portable CLINICAL HISTORY: Dyspnea COMPARISON STUDY: 06/08/2020 FINDINGS: The heart remains borderline enlarged. There is prominence of central pulmonary arteries suggesting pulmonary arterial hypertension. There is a stable linear band of atelectasis/scarring at the left lung base. There is no failure. There is no acute parenchymal consolidation.[ IMPRESSION: No significant change from the preceding study. No acute findings ACT 112: Negative or not required by law. Electronically signed by: Gonzalo Lyon M.D. 02/24/2021 3:48 PM ECG Rhythm: atrial fibrillation Findings: + LAFB Change: no significant change Supervising Physician Co-Signing Physician Notes 80yo F with a PMH of asthma, COPD, chronic hypoxic respiratory failure on 2L NC O2, JORDAN intolerant to CPAP, DM type II, paroxysmal atrial fibrillation status post watchman procedure not anticoagulated due to history of GI bleeding, chronic diastolic CHF, GIST tumor under surveillance and other problems who presents the ED with dyspnea on exertion, orthopnea and PND over the past 3 days. History and physical exam performed by me as documented by Claudia Jarrell PA-C Physical exam notable for obesity, tachypnea, chest tightness with reduced air movement, on nasal oxygen at 4 L with oxygen saturation in the 90s to 93% Lab work notable for WBC of 13, ABG-7.4/58 [PCO2]/126 PO2] BNP is 1105 Chest x-ray did not show any acute findings Based on history, recent hospitalization and med changes, physical exam; likely mixed picture -Acute decompensated heart failure. -Mild COPD exacerbation Will need records from [facility] about recent hospitalization. EF was reported to be 35 to 40% [hence, systolic heart failure] Get 2D echo IV Lasix Cardiology consult Continue nebs Prednisone Trial of CPAP at bedtime Agree with other plans as documented by Claudia Jarrell PA-C
[2021-02-24 18:34] LABS: Base Excess ABG 8.2 mEq/L (-9-1.8); HCO3 ABG 35 mmol/L (19-24); Oxygen Saturation ABG 98.5 % (90-95); PCO2 ABG 58 mmHg (35-46); PO2 ABG 126 mmHg (80-95)
[2021-02-24 18:35] LABS: Allen Test Pos (Pos)
[2021-02-24] MEDS ORDERED: ALBUT/IPRATROP 3MG/0.5MG NEB 3 ML VIAL ONE (19:46)
[2021-02-24] MEDS: ALBUT/IPRATROP 3MG/0.5MG NEB 3 ML VIAL NEB SCH (19:59)
[2021-02-24] MEDS ORDERED: CARBOHYDRATES FOR HYPOGLYCEMIA PO PRN (20:18)
[2021-02-24] MEDS ORDERED: GLUCOSE 40% GEL 15 GM TUBE PO PRN (20:18)
[2021-02-24] MEDS ORDERED: GLUCAGON FOR INJ 1 MG VIAL SQ PRN (20:18)
[2021-02-24] MEDS ORDERED: DEXTROSE 50% 50 ML SYRINGE IV PRN (20:18)
[2021-02-24] MEDS ORDERED: GLUCOSE 10 TABS/TUBE PO PRN (20:18)
[2021-02-24] MEDS ORDERED: POLYETHYLENE (MIRALAX) 17 GM PACK PO PRN (20:18)
[2021-02-24] MEDS ORDERED: PROMETHAZINE HCL 25 MG TAB PO PRN (20:18)
[2021-02-24] MEDS ORDERED: ALBUTEROL HFA 8 GM INHALER INH PRN (20:18)
[2021-02-24] MEDS ORDERED: ONDANSETRON INJ 2 MG/ML 2 ML VIAL IV PRN (20:18)
[2021-02-24] MEDS: predniSONE 20 MG TAB PO SCH (20:41)
[2021-02-24] MEDS ORDERED: FUROSEMIDE 40 MG/4 ML VIAL IV SCH (21:00)
[2021-02-24] MEDS: BIMATOPROST 0.01% OP SOLN 2.5 ML BTL OPB SCH (22:16)
[2021-02-24] MEDS: BRINZOLAMIDE (AZOPT) OPS 10 ML BTL OPB SCH (22:16)
[2021-02-24] MEDS: FUROSEMIDE 40 MG in SYRINGE 0 ML IV SCH (22:17)
[2021-02-24] MEDS: PANTOprazole 40 MG TAB PO SCH (22:17)
[2021-02-24] MEDS: DICYCLOMINE HCL 20 MG TAB PO SCH (22:18)
[2021-02-24] MEDS: carvediloL 3.125 MG TAB PO SCH (22:18)
[2021-02-24] MEDS: ATORVASTATIN 40 MG TAB PO SCH (22:18)
[2021-02-24] MEDS: HYDROCODONE/ACETAMOPHEN 5/325MG TAB PO PRN (22:20)
[2021-02-24] MEDS: INSULIN ASPART 100 UNITS/ML 3 ML PEN SC SCH (22:32)
[2021-02-25 05:55] LABS: Hemoglobin 11.3 g/dL (12.0-16.0); Mean Corpuscular Hemoglobin 28.9 pg (25-34); Mean Corpuscular Hgb Conc 31.4 g/dL (32-36); Mean Corpuscular Volume 92.1 fL (80-100); Mean Platelet Volume 9.5 fL (7.4-10.4); Platelet Count 362 K/uL (130-400); RDW Coefficient of Variation 14.7 % (11.5-14.5); RDW Standard Deviation 49.8 fL (36.4-46.3); Red Blood Count 3.91 M/uL (4.2-5.4); White Blood Count 8.93 K/uL (4.8-10.8)
[2021-02-25 06:20] LABS: BUN Creatinine Ratio 22.3 (10-20); Calcium 9.6 mg/dl (8.5-10.1); Creatinine Clr Calc Pharmacy 58.9 ml/min; Est GFR (African American) 65.5 ml/min; Est GFR (Non-African American) 56.5 ml/min
[2021-02-25] MEDS: PANTOprazole 40 MG TAB PO SCH ×2 (07:27→20:54)
[2021-02-25] MEDS: DICYCLOMINE HCL 20 MG TAB PO SCH ×2 (07:27→20:55)
[2021-02-25] MEDS: predniSONE 20 MG TAB PO SCH (07:28)
[2021-02-25] MEDS: carvediloL 3.125 MG TAB PO SCH ×2 (07:29→20:55)
[2021-02-25] MEDS: MULTIVITAMIN TAB PO SCH (07:30)
[2021-02-25] MEDS: ADVANCED PROBIOTIC 1250 MG CAPSULE PO SCH (07:30)
[2021-02-25] MEDS: POTASSIUM CHLORIDE 10 MEQ TABCR PO SCH (07:31)
[2021-02-25] MEDS: dilTIAZem HCL 120 MG CAPCR PO SCH (07:31)
[2021-02-25] MEDS: CHOLECALCIFEROL 1,000 UNITS 25 MCG TAB PO SCH (07:31)
[2021-02-25] MEDS: FERROUS SULFATE 325 MG TAB PO SCH (07:32)
[2021-02-25] MEDS: lisinopril 2.5 MG TAB PO SCH (07:32)
[2021-02-25] MEDS: DOCUSATE SODIUM 100 MG CAP PO SCH (07:32)
[2021-02-25] MEDS: ASPIRIN 81 MG ECTAB PO SCH (07:33)
[2021-02-25] MEDS: BRINZOLAMIDE (AZOPT) OPS 10 ML BTL OPB SCH ×2 (07:36→20:55)
[2021-02-25] MEDS: FLUTICASONE/VILANTEROL 100/25MCG 14 PUFFS/INHALER INH SCH (07:38)
[2021-02-25] MEDS: UMECLIDINIUM BROMIDE 62.5MCG/BLISTER 7 PUFFS/INHALER INH SCH (07:38)
[2021-02-25] MEDS: FUROSEMIDE 40 MG in SYRINGE 0 ML IV SCH ×2 (07:40→17:28)
[2021-02-25] MEDS: ALBUT/IPRATROP 3MG/0.5MG NEB 3 ML VIAL NEB SCH ×2 (07:40→11:24)
[2021-02-25] MEDS: INSULIN ASPART 100 UNITS/ML 3 ML PEN SC SCH ×4 (07:51→20:29)
--- NOTE | 2021-02-25 08:27 | Cardiology Consultation ---
Date of Consultation February 25, 2021 Assessment & Plan (1) Acute on chronic 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: Patient clinically improving with IV diuretic therapy. Continue IV Lasix 40 mg twice daily. Follow daily weight, fluid balance, GFR, electrolytes. Add Aldactone 12.5 mg daily. Repeat basic metabolic panel in a.m. (2) NICM (nonischemic cardiomyopathy): Cardiac catheterization performed in [place] demonstrating mild nonobstructive coronary disease in November. Continue evidence-based heart failure therapy including lisinopril and carvedilol. Add Aldactone 12.5 mg daily. Consider discontinuation of diltiazem and titration of carvedilol during hospitalization. (3) Chronic atrial fibrillation: Rate controlled. Continue beta-jonathan therapy. Patient is not anticoagulated due to history of GI bleeding. Status post watchman device implantation in 2019. Diltiazem is not an ideal medication due to nonischemic cardiomyopathy, however, likely prescribed by outpatient gaming pit boss due to severe underlying COPD and reactive airways disease. Consider discontinuation during hospitalization. (4) COPD (chronic obstructive pulmonary disease): Nebulizer treatment and corticosteroids as per internal medicine. (5) Chronic respiratory failure with hypoxia and hypercapnia: ABG reviewed. Continue medications as per internal medicine. History of Present Illness Reason for Consultation: CHF Requesting Physician: Dr. Dela Cruz Attending Physician: Areli Dela Cruz MD History of Present Illness Complex 80-year-old patient presents emergency department with 3 days of progressive shortness of breath. Carries history of COPD asthma, chronic atrial fibrillation status post watchman, nonischemic cardiomyopathy, and congestive heart failure. Hospitalized Nov 2020 in [place]. Right and left cardiac catheterization performed during hospitalization demonstrating mild nonobstructive coronary disease, nonischemic cardiomyopathy with ejection fraction of 35-40%, and no pulmonary hypertension. Discharged from the hospital on 80 mg of Lasix twice daily. Reduced to 80 mg daily approximately 1 month prior to admission. Weight is up approximately 12 pounds compared to her most recent office visit 12/21/2020 with her [facility] PCP. Patient currently resting comfortably. Positive fluid balance recorded overnight, however, patient feeling better from a cardiovascular perspective. Previously noted orthopnea and PND has improved. Lower extremity edema resolving. Notes mild cough without wheezing. No chest discomfort, palpitations, lightheadedness, dizziness, syncope, or near syncope. Telemetry reveals atrial fibrillation with heart rate ranging from 70-80 bpm. Allergies Allergy/AdvReac Type Severity Reaction Status Date / Time salmon oil Allergy Severe HIVES-REDDENED Verified 09/11/20 12:59 ALL OVER Iodinated Contrast Media Allergy Intermediate HIVES-GI Verified 09/11/20 12:59 SYMPTOMS lisinopril Allergy Intermediate FAST HEART Verified 09/11/20 12:59 BEAT valsartan Allergy Intermediate FAST HEART Verified 09/11/20 12:59 BEAT bupropion AdvReac Mild GI SYMPTOMS Verified 09/11/20 12:59 enalapril AdvReac Mild GI SYMPTOMS Verified 09/11/20 12:59 escitalopram AdvReac Mild GI SYMPTOMS Verified 09/11/20 12:59 metoprolol AdvReac Mild LOWERS Verified 09/11/20 12:59 PULSE RATE verapamil AdvReac Mild GI UPSET, Verified 09/11/20 12:59 fast heart rate Home Medications Medication Instructions Recorded Confirmed Type atorvastatin 40 mg PO HS 06/23/19 02/24/21 History cholecalciferol (vitamin D3) 1,000 unit PO QAM 06/23/19 02/24/21 History [Vitamin D3] docusate sodium 100 mg PO QAM 06/23/19 02/24/21 History omeprazole 20 mg PO BID 06/23/19 02/24/21 History Lumigan 1 drp OPB HS 09/25/19 02/24/21 History albuterol sulfate 2.5 mg INHALATION BID PRN 09/25/19 02/24/21 History brinzolamide [Azopt] 1 drp OPB BID 09/25/19 02/24/21 History polyethylene glycol 3350 [Miralax] 17 g PO BID PRN 09/25/19 02/24/21 History ferrous sulfate 325 mg (65 mg 325 mg PO QAM tab 02/23/20 02/24/21 History iron) tablet glimepiride 4 mg tablet 2 mg PO QAM tab 02/23/20 02/24/21 History multivitamin 1 tab PO QAM 06/02/20 02/24/21 History dicyclomine 20 mg PO BID 30 Days #60 tab 06/16/20 02/24/21 Rx promethazine 25 mg PO Q6H PRN #60 tab 06/16/20 02/24/21 Rx Probiotic 3,000 mmu cells PO QAM 07/28/20 02/24/21 History hydrocodone-acetaminophen 1 tab PO Q6H PRN 07/28/20 02/24/21 History potassium chloride [Klor-Con M20] 10 meq PO QAM 07/28/20 02/24/21 History zafirlukast 20 mg tablet 20 mg PO QAM 09/11/20 02/24/21 History albuterol sulfate 90 mcg/actuation 2 puff INHALATION QID PRN #6.7 g 10/30/20 02/24/21 Rx aerosol inhaler aspirin 81 mg tablet,delayed 81 mg PO DAILY 02/05/21 02/24/21 History release carvedilol 3.125 mg tablet 3.125 mg PO BID 02/05/21 02/24/21 History furosemide 40 mg tablet 40 mg PO DAILY tab 02/05/21 02/24/21 History lisinopril 2.5 mg tablet 2.5 mg PO DAILY 02/05/21 02/24/21 History tiotropium bromide 2.5 2 puff INHALATION DAILY #1 inhaler 02/05/21 02/24/21 Rx mcg/actuation mist for inhalation diltiazem HCl 120 mg PO DAILY 02/24/21 02/24/21 History fluticasone propion-salmeterol 1 inh INHALATION BID 02/24/21 02/24/21 History [Advair Diskus] Patient History Medical History Acute blood loss anemia Aortic valve stenosis, mild Asthma Chronic diastolic CHF (congestive heart failure) Chronic respiratory failure with hypoxia and hypercapnia COPD (chronic obstructive pulmonary disease) Diabetes mellitus, type 2 Diverticulitis Esophageal reflux Glaucoma of both eyes Hyperlipidemia Hypertension Hyperthyroidism PLACED ON NEW MED-F/U AYANA VIVEROS PA-C [facility] Lower GI bleed On home oxygen therapy 2L N/C at all times and 4 L N/C at night Paroxysmal atrial fibrillation s/p Watchman's procedure - not anticoagulated due to GI bleed Sleep apnea Subepithelial mass of stomach Surgical History H/O colonoscopy "04/2014 - diverticular disease throughout colon, internal hemorrhoids, polyp removed" History of appendectomy History of cardiac cath "YEARS AGO"NO BLOCKAGES/NO STENTS-F/U DR THOMSON History of cholecystectomy History of dilatation and curettage History of esophagogastroduodenoscopy (EGD) "04/2014 - normal" History of incisional hernia repair History of tooth extraction all teeth Hx of small bowel obstruction "11/2017 - Seen [facility] - surgical intervention" Nausea and vomiting after administration of anesthetic agent Presence of Watchman left atrial appendage closure device 11/2019 @ [facility] Dr. 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); Hx Alcohol Use: No Hx Substance Use: No Preferred Language: Togolese Communication Ability: Effective Teradata Solution Architect Required: No Beliefs That Will Affect Care: None marital status: / Current Living Situation: Alone Other Information That Helps Us Care for You: No Feels Safe at Home: Yes Safety Concerns: Feels Safe At This Time Assistive Devices: None Review of Systems Review of Systems: All systems reviewed & are unremarkable except as noted in Subjective Physical Exam Constitutional: well developed, well nourished and + obese Respiratory: normal respiratory effort; no respiratory distress and no labored breathing Auscultation: + diminished lung sounds; no crackles, no rales, no rhonchi and no wheezes Cardiovascular: Rate/Rhythm: + irregularly irregular Heart Sounds: normal S1 and normal S2 Vessels: + JVD and radial pulses present; no carotid bruit Extremities: + edema (Trace bilateral pedal edema.) Gastrointestinal (Abdomen): Inspection/Auscultation: abdomen normal to inspection and normal bowel sounds; abdomen not distended Percussion/Palpation: abdomen soft; abdomen nontender, no guarding and abdomen not rigid Neurologic: moves all extremities; no focal motor deficits Motor/Sensory: no tremor Psychiatric: A+Ox3, euthymic affect Results & Data ([facility]) Vital Signs (Past 12 Hours) Vital Signs Temp Pulse Pulse Resp BP Pulse Ox 02/25/21 07:48 36.6 C 80 18 108/63 97 02/25/21 07:40 86 16 98 02/25/21 07:12 68 02/25/21 03:14 36.6 C 90 20 119/78 93 02/25/21 00:05 82 02/24/21 23:00 37.2 C 61 20 109/70 96 02/24/21 21:30 79
--- NOTE | 2021-02-25 09:44 | Hospitalist Progress Note ---
Date of Service February 25, 2021 Assessment & Plan (1) Acute decompensated heart failure: Orthopnea, PND, dyspnea on exertion for the past 3 days in setting of recent medication change of decreasing Lasix dose now 40mg daily Was admitted to [facility] and found to have acute decompensated CHF TTE performed at that time with estimated EF: 35-40%, mild , mild MS, mod MR, borderline pulm HTN with est pulmonary artery systolic pressure is 44 mmHg, grade 1 diastolic dysfunction Started on Coreg 3.125 mg twice daily and lisinopril 2.5 mg daily at that time Awaiting records from [facility] admission, Dr. Meza Continue 40mg IV lasix BID Monitor I/O. Daily weights Continue Coreg, lisinopril Appreciate cardiology recommendations (2) COPD (chronic obstructive pulmonary disease): (3) Asthma: Mild COPD exacerbation ABG findings show chronic respiratory acidosis with compensation - pH 7.4, pCO2 58, HCO3 35 Continue nebs and prednisone Afebrile, no s/sx of infection so will hold off on antibiotics for now Continue supplemental O2 Currently at baseline home oxygen 2l/min (4) JORDAN (obstructive sleep apnea): Diagnosed with JORDAN in the past but has not trialed CPAP -uses 4 L nasal c annula at bedtime Did not tolerated CPAP HS due to comfort Will need outpatient sleep study upon discharge (5) Diabetes mellitus, type 2: Hold home agents SSI while in-patient BSG AC HS (6) Paroxysmal atrial fibrillation: EKG showing a atrial fibrillation with heart rate of 87 p.m. Continue diltiazem Not on anticoagulation due to history of GI bleeding DVT Ppx: SCDs Code status: FULL Admission and Anticipated Discharge Date Admission Date: February 24, 2021 Subjective 80yo F with a PMH of asthma, COPD, chronic hypoxic respiratory failure on 2L NC O2, JORDAN intolerant to CPAP, DM type II, paroxysmal atrial fibrillation status post watchman procedure not anticoagulated due to history of GI bleeding, chronic diastolic CHF, GIST tumor under surveillance and other problems who presents the ED with dyspnea on exertion, orthopnea and PND over the past 3 days. Patient seen and examined Patient reports feeling better today States that orthopnea and PND improved. Was able to sleep laying down yesterday Denied chest pain, cough Physical Exam Constitutional: + well hydrated and + obese; no acute distress Eyes: PERRL, conjunctivae normal, anicteric sclerae ENMT: external ear and nose normal, oropharynx normal Respiratory: normal respiratory effort; no respiratory distress Auscultation: + diminished lung sounds; no crackles and no wheezes Cardiovascular: Rate/Rhythm: + irregularly irregular S1 S2 Gastrointestinal (Abdomen): normal bowel sounds, soft, nontender, no hepatosplenomegaly Trace pedal edema Musculoskeletal: no cyanosis or clubbing, extremities motor strength 5/5 Trace pedal edema Neurologic: PERRL, EOMI, accommodation nl, no face palsy, no dysarthria Psychiatric: A+Ox3, euthymic affect Results & Data Results & Data ([facility]) Vital Signs (Past 12 Hours) Vital Signs Temp Pulse Pulse Resp BP Pulse Ox 02/25/21 07:48 36.6 C 80 18 108/63 97 02/25/21 07:40 86 16 98 02/25/21 07:12 68 02/25/21 03:14 36.6 C 90 20 119/78 93 02/25/21 00:05 82 02/24/21 23:00 37.2 C 61 20 109/70 96 Laboratory Results Laboratory Results - last 24 hr 02/24/21 02/24/21 02/24/21 15:28 15:28 15:28 WBC 13.02 H RBC 4.20 Hgb 12.1 Hct 38.8 MCV 92.4 MCH 28.8 MCHC 31.2 L RDW Std Deviation 50.4 H RDW Coeff of Jesika 14.8 H Plt Count 409 H MPV 9.6 Immature Gran % (Auto) 0.3 Neut % (Auto) 61.7 Lymph % (Auto) 25.7 [place] % (Auto) 8.8 Eos % (Auto) 3.3 Baso % (Auto) 0.2 Neut # (Auto) 8.02 H Lymph # (Auto) 3.35 [place] # (Auto) 1.15 H Eos # (Auto) 0.43 Baso # (Auto) 0.03 Immature Gran # (Auto) 0.04 H PT 10.3 INR 1.0 APTT 25.8 PTT Ratio 1.0 ABG pH ABG pCO2 ABG pO2 ABG HCO3 ABG O2 Saturation ABG Base Excess Duong Test VBG pH VBG pCO2 VBG pO2 VBG HCO3 VBG O2 Saturation VBG Base Excess Barometric Pressure Oxygen Given Sodium 139 Potassium 4.5 Chloride 101 Carbon Dioxide 35 H Anion Gap 3.0 BUN 22 H Creatinine 0.93 Est Cr Clr Drug Dosing 59.5 Est GFR ( Amer) 66.3 Est GFR (Non-Af Amer) 57.2 BUN/Creatinine Ratio 23.4 H Glucose 134 H POC Glucose Estimat Average Glucose Hemoglobin A1c Calcium 9.4 Phosphorus 3.8 Magnesium 2.2 Total Bilirubin 0.4 AST 10 L ALT 12 Alkaline Phosphatase 150 H Troponin I < 0.015 NT-Pro-B Natriuret Pep 1105 Total Protein 8.0 Albumin 3.4 Globulin 4.6 H Albumin/Globulin Ratio 0.7 L Urine Color Urine Appearance Urine pH Ur Specific [place] Urine Protein Urine Glucose (UA) Urine Ketones Urine Blood Urine Nitrite Urine Bilirubin Urine Urobilinogen Ur Leukocyte Esterase Urine WBC (Auto) Urine RBC (Auto) U Hyaline Cast (Auto) U Epithel Cells (Auto) Urine Bacteria (Auto) Urine Yeast COVID-19 Eval Order SARS-CoV-2 (PCR) 02/24/21 02/24/21 02/24/21 15:28 16:40 17:55 WBC RBC Hgb Hct MCV MCH MCHC RDW Std Deviation RDW Coeff of Jesika Plt Count MPV Immature Gran % (Auto) Neut % (Auto) Lymph % (Auto) [place] % (Auto) Eos % (Auto) Baso % (Auto) Neut # (Auto) Lymph # (Auto) [place] # (Auto) Eos # (Auto) Baso # (Auto) Immature Gran # (Auto) PT INR APTT PTT Ratio ABG pH ABG pCO2 ABG pO2 ABG HCO3 ABG O2 Saturation ABG Base Excess Duong Test VBG pH 7.36 VBG pCO2 66 H VBG pO2 34 VBG HCO3 37 VBG O2 Saturation 66.5 VBG Base Excess 8.8 Barometric Pressure 737.6 Oxygen Given Sodium Potassium Chloride Carbon Dioxide Anion Gap BUN Creatinine Est Cr Clr Drug Dosing Est GFR ( Amer) Est GFR (Non-Af Amer) BUN/Creatinine Ratio Glucose POC Glucose Estimat Average Glucose Hemoglobin A1c Calcium Phosphorus Magnesium Total Bilirubin AST ALT Alkaline Phosphatase Troponin I NT-Pro-B Natriuret Pep Total Protein Albumin Globulin Albumin/Globulin Ratio Urine Color Yellow Urine Appearance Clear Urine pH 7.0 Ur Specific [place] 1.011 Urine Protein Negative Urine Glucose (UA) Negative Urine Ketones Negative Urine Blood Negative Urine Nitrite Negative Urine Bilirubin Negative Urine Urobilinogen Negative Ur Leukocyte Esterase 2+ H Urine WBC (Auto) 1-5 Urine RBC (Auto) 0-4 U Hyaline Cast (Auto) 0 U Epithel Cells (Auto) 20-30 H Urine Bacteria (Auto) Negative Urine Yeast Not Reportable COVID-19 Eval Order Covid19 at [facility] SARS-CoV-2 (PCR) 02/24/21 02/24/21 02/24/21 17:55 18:20 22:29 WBC RBC Hgb Hct MCV MCH MCHC RDW Std Deviation RDW Coeff of Jesika Plt Count MPV Immature Gran % (Auto) Neut % (Auto) Lymph % (Auto) [place] % (Auto) Eos % (Auto) Baso % (Auto) Neut # (Auto) Lymph # (Auto) [place] # (Auto) Eos # (Auto) Baso # (Auto) Immature Gran # (Auto) PT INR APTT PTT Ratio ABG pH 7.40 ABG pCO2 58 H ABG pO2 126 H ABG HCO3 35 H ABG O2 Saturation 98.5 H ABG Base Excess 8.2 H Duong Test Pos VBG pH VBG pCO2 VBG pO2 VBG HCO3 VBG O2 Saturation VBG Base Excess Barometric Pressure 736.9 Oxygen Given 4 PERCENT Sodium Potassium Chloride Carbon Dioxide Anion Gap BUN Creatinine Est Cr Clr Drug Dosing Est GFR ( Amer) Est GFR (Non-Af Amer) BUN/Creatinine Ratio Glucose POC Glucose 178 H Estimat Average Glucose Hemoglobin A1c Calcium Phosphorus Magnesium Total Bilirubin AST ALT Alkaline Phosphatase Troponin I NT-Pro-B Natriuret Pep Total Protein Albumin Globulin Albumin/Globulin Ratio Urine Color Urine Appearance Urine pH Ur Specific [place] Urine Protein Urine Glucose (UA) Urine Ketones Urine Blood Urine Nitrite Urine Bilirubin Urine Urobilinogen Ur Leukocyte Esterase Urine WBC (Auto) Urine RBC (Auto) U Hyaline Cast (Auto) U Epithel Cells (Auto) Urine Bacteria (Auto) Urine Yeast COVID-19 Eval Order SARS-CoV-2 (PCR) NEGATIVE 02/25/21 02/25/21 02/25/21 05:44 05:44 05:44 WBC 8.93 RBC 3.91 L Hgb 11.3 L Hct 36.0 L MCV 92.1 MCH 28.9 MCHC 31.4 L RDW Std Deviation 49.8 H RDW Coeff of Jesika 14.7 H Plt Count 362 MPV 9.5 Immature Gran % (Auto) Neut % (Auto) Lymph % (Auto) [place] % (Auto) Eos % (Auto) Baso % (Auto) Neut # (Auto) Lymph # (Auto) [place] # (Auto) Eos # (Auto) Baso # (Auto) Immature Gran # (Auto) PT INR APTT PTT Ratio ABG pH ABG pCO2 ABG pO2 ABG HCO3 ABG O2 Saturation ABG Base Excess Duong Test VBG pH VBG pCO2 VBG pO2 VBG HCO3 VBG O2 Saturation VBG Base Excess Barometric Pressure Oxygen Given Sodium 139 Potassium Chloride 101 Carbon Dioxide 36 H Anion Gap 2.0 L BUN 21 H Creatinine 0.94 Est Cr Clr Drug Dosing 58.9 Est GFR ( Amer) 65.5 Est GFR (Non-Af Amer) 56.5 BUN/Creatinine Ratio 22.3 H Glucose 167 H POC Glucose Estimat Average Glucose Pending Hemoglobin A1c Pending Calcium 9.6 Phosphorus Magnesium Total Bilirubin AST ALT Alkaline Phosphatase Troponin I NT-Pro-B Natriuret Pep Total Protein Albumin Globulin Albumin/Globulin Ratio Urine Color Urine Appearance Urine pH Ur Specific [place] Urine Protein Urine Glucose (UA) Urine Ketones Urine Blood Urine Nitrite Urine Bilirubin Urine Urobilinogen Ur Leukocyte Esterase Urine WBC (Auto) Urine RBC (Auto) U Hyaline Cast (Auto) U Epithel Cells (Auto) Urine Bacteria (Auto) Urine Yeast COVID-19 Eval Order SARS-CoV-2 (PCR) 02/25/21 02/25/21 02/25/21 06:25 07:44 11:31 WBC RBC Hgb Hct MCV MCH MCHC RDW Std Deviation RDW Coeff of Jesika Plt Count MPV Immature Gran % (Auto) Neut % (Auto) Lymph % (Auto) [place] % (Auto) Eos % (Auto) Baso % (Auto) Neut # (Auto) Lymph # (Auto) [place] # (Auto) Eos # (Auto) Baso # (Auto) Immature Gran # (Auto) PT INR APTT PTT Ratio ABG pH ABG pCO2 ABG pO2 ABG HCO3 ABG O2 Saturation ABG Base Excess Duong Test VBG pH VBG pCO2 VBG pO2 VBG HCO3 VBG O2 Saturation VBG Base Excess Barometric Pressure Oxygen Given Sodium Potassium 4.0 Chloride Carbon Dioxide Anion Gap BUN Creatinine Est Cr Clr Drug Dosing Est GFR ( Amer) Est GFR (Non-Af Amer) BUN/Creatinine Ratio Glucose POC Glucose 161 H 155 H Estimat Average Glucose Hemoglobin A1c Calcium Phosphorus Magnesium Total Bilirubin AST ALT Alkaline Phosphatase Troponin I NT-Pro-B Natriuret Pep Total Protein Albumin Globulin Albumin/Globulin Ratio Urine Color Urine Appearance Urine pH Ur Specific [place] Urine Protein Urine Glucose (UA) Urine Ketones Urine Blood Urine Nitrite Urine Bilirubin Urine Urobilinogen Ur Leukocyte Esterase Urine WBC (Auto) Urine RBC (Auto) U Hyaline Cast (Auto) U Epithel Cells (Auto) Urine Bacteria (Auto) Urine Yeast COVID-19 Eval Order SARS-CoV-2 (PCR)
[2021-02-25] MEDS: HYDROCODONE/ACETAMOPHEN 5/325MG TAB PO PRN ×2 (16:20→22:50)
[2021-02-25] MEDS: ATORVASTATIN 40 MG TAB PO SCH (20:54)
[2021-02-25] MEDS: BIMATOPROST 0.01% OP SOLN 2.5 ML BTL OPB SCH (20:55)
[2021-02-26 07:13] LABS: Estimated Average Glucose 154 mg/dl
[2021-02-26 07:32] LABS: Hematocrit (blood only) 36.6 % (37-47); Hemoglobin 11.4 g/dL (12.0-16.0); Mean Corpuscular Hemoglobin 28.9 pg (25-34); Mean Corpuscular Hgb Conc 31.1 g/dL (32-36); Mean Corpuscular Volume 92.9 fL (80-100); Mean Platelet Volume 9.8 fL (7.4-10.4); Platelet Count 396 K/uL (130-400); RDW Coefficient of Variation 14.7 % (11.5-14.5); RDW Standard Deviation 50.3 fL (36.4-46.3); Red Blood Count 3.94 M/uL (4.2-5.4); White Blood Count 11.75 K/uL (4.8-10.8)
[2021-02-26 08:08] LABS: BUN Creatinine Ratio 25.4 (10-20); Calcium 9.8 mg/dl (8.5-10.1); Creatinine Clr Calc Pharmacy 55.9 ml/min; Est GFR (African American) 62.3 ml/min; Est GFR (Non-African American) 53.7 ml/min; Magnesium 2.2 mg/dl (1.8-2.4); Phosphorus 3.6 mg/dl (2.5-4.9); Potassium 3.5 mmol/L (3.5-5.1)
[2021-02-26] MEDS: PANTOprazole 40 MG TAB PO SCH ×2 (08:08→20:08)
[2021-02-26] MEDS: HYDROCODONE/ACETAMOPHEN 5/325MG TAB PO PRN ×2 (08:08→21:41)
[2021-02-26] MEDS: DICYCLOMINE HCL 20 MG TAB PO SCH ×2 (08:08→20:08)
[2021-02-26] MEDS: MULTIVITAMIN TAB PO SCH (08:08)
[2021-02-26] MEDS: CHOLECALCIFEROL 1,000 UNITS 25 MCG TAB PO SCH (08:08)
[2021-02-26] MEDS: carvediloL 3.125 MG TAB PO SCH (08:09)
[2021-02-26] MEDS: FERROUS SULFATE 325 MG TAB PO SCH (08:09)
[2021-02-26] MEDS: lisinopril 2.5 MG TAB PO SCH (08:09)
[2021-02-26] MEDS: ADVANCED PROBIOTIC 1250 MG CAPSULE PO SCH (08:09)
[2021-02-26] MEDS: dilTIAZem HCL 120 MG CAPCR PO SCH (08:09)
[2021-02-26] MEDS: POTASSIUM CHLORIDE 10 MEQ TABCR PO SCH (08:09)
[2021-02-26] MEDS: predniSONE 20 MG TAB PO SCH (08:09)
[2021-02-26] MEDS: FUROSEMIDE 40 MG in SYRINGE 0 ML IV SCH ×2 (08:09→17:00)
[2021-02-26] MEDS: ASPIRIN 81 MG ECTAB PO SCH (08:09)
[2021-02-26] MEDS: DOCUSATE SODIUM 100 MG CAP PO SCH (08:09)
[2021-02-26] MEDS: INSULIN ASPART 100 UNITS/ML 3 ML PEN SC SCH ×4 (08:11→20:07)
--- NOTE | 2021-02-26 09:19 | Hospitalist Progress Note ---
Date of Service February 26, 2021 Assessment & Plan (1) Acute decompensated heart failure: Orthopnea, PND, dyspnea on exertion for 3 days in setting of recent medication change of decreasing Lasix dose now 40mg daily Was admitted to [facility] and found to have acute decompensated CHF TTE performed at that time with estimated EF: 35-40%, mild , mild MS, mod MR, borderline pulm HTN with est pulmonary artery systolic pressure is 44 mmHg, grade 1 diastolic dysfunction Started on Coreg 3.125 mg twice daily and lisinopril 2.5 mg daily at that time Continue 40mg IV lasix BID Spironolactone 12.5mg daily added Monitor I/O. Daily weights Continue Coreg, lisinopril Rough Carpenter on board (2) COPD (chronic obstructive pulmonary disease): (3) Asthma: Mild COPD exacerbation ABG findings show chronic respiratory acidosis with compensation - pH 7.4, pCO2 58, HCO3 35 Continue nebs and prednisone Afebrile, no s/sx of infection so will hold off on antibiotics for now Continue supplemental O2 Currently at baseline home oxygen 2l/min (4) JORDAN (obstructive sleep apnea): Diagnosed with JORDAN in the past but has not trialed CPAP -uses 4 L nasal cannula at bedtime Did not tolerated CPAP HS due to comfort Will need outpatient sleep study upon discharge (5) Diabetes mellitus, type 2: Hold home agents SSI while in-patient BSG AC HS (6) Paroxysmal atrial fibrillation: EKG showing a atrial fibrillation with heart rate of 87 p.m. Continue diltiazem Not on anticoagulation due to history of GI bleeding DVT Ppx: SCDs Code status: FULL Admission and Anticipated Discharge Date Admission Date: February 24, 2021 Subjective 80yo F with a PMH of asthma, COPD, chronic hypoxic respiratory failure on 2L [place] O2, JORDAN intolerant to CPAP, DM type II, paroxysmal atrial fibrillation status post watchman procedure not anticoagulated due to history of GI bleeding, chronic diastolic CHF, GIST tumor under surveillance and other problems who presents the ED with dyspnea on exertion, orthopnea and PND over 3 days. Being managed for acute on chronic systolic and diastolic heart failure. Patient seen and examined this morning. Reports wheezing this morning. Otherwise, improvement orthopnea and PND. Denied any chest pain or cough. Review of Systems Review of Systems: All systems reviewed & are unremarkable except as noted in Subjective Physical Exam Constitutional: + well hydrated and + obese; no acute distress Eyes: PERRL, conjunctivae normal, anicteric sclerae ENMT: external ear and nose normal, oropharynx normal Respiratory: normal respiratory effort; no respiratory distress Auscultation: + diminished lung sounds; no crackles and no wheezes Cardiovascular: Rate/Rhythm: + irregularly irregular Extremities: no edema S1 S2 Gastrointestinal (Abdomen): normal bowel sounds, soft, nontender, no hepatosplenomegaly Musculoskeletal: no cyanosis or clubbing, extremities motor strength 5/5 Neurologic: PERRL, EOMI, accommodation nl, no face palsy, no dysarthria Psychiatric: A+Ox3, euthymic affect Results & Data Results & Data ([facility]) Vital Signs (Past 12 Hours) Vital Signs Temp Pulse Pulse Resp BP Pulse Ox 02/26/21 08:03 61 143/81 H 02/26/21 07:13 36.4 C L 89 18 139/59 L 92 02/26/21 07:00 59 L 02/26/21 04:02 36.7 C 65 18 120/64 98 02/26/21 00:00 37.0 C 81 18 109/71 96 Laboratory Results Abnormal lab results 02/25/21 02/25/21 02/25/21 Range/Units 05:44 11:31 16:47 WBC (4.8-10.8) K/uL RBC (4.2-5.4) M/uL Hgb (12.0-16.0) g/dL Hct (37-47) % MCHC (32-36) g/dL RDW Std Deviation (36.4-46.3) fL RDW Coeff of Jesika (11.5-14.5) % Carbon Dioxide (21-32) mmol/L BUN (7-18) mg/dl BUN/Creatinine Ratio (10-20) Glucose (70-99) mg/dl POC Glucose 155 H 180 H (70-99) mg/dl Hemoglobin A1c 7.0 H (4.5-5.6) % 02/25/21 02/26/21 02/26/21 Range/Units 20:16 07:21 07:21 WBC 11.75 H (4.8-10.8) K/uL RBC 3.94 L (4.2-5.4) M/uL Hgb 11.4 L (12.0-16.0) g/dL Hct 36.6 L (37-47) % MCHC 31.1 L (32-36) g/dL RDW Std Deviation 50.3 H (36.4-46.3) fL RDW Coeff of Jesika 14.7 H (11.5-14.5) % Carbon Dioxide 37 H (21-32) mmol/L BUN 25 H (7-18) mg/dl BUN/Creatinine Ratio 25.4 H (10-20) Glucose 111 H (70-99) mg/dl POC Glucose 140 H (70-99) mg/dl Hemoglobin A1c (4.5-5.6) % 02/26/21 Range/Units 07:44 WBC (4.8-10.8) K/uL RBC (4.2-5.4) M/uL Hgb (12.0-16.0) g/dL Hct (37-47) % MCHC (32-36) g/dL RDW Std Deviation (36.4-46.3) fL RDW Coeff of Jesika (11.5-14.5) % Carbon Dioxide (21-32) mmol/L BUN (7-18) mg/dl BUN/Creatinine Ratio (10-20) Glucose (70-99) mg/dl POC Glucose 111 H (70-99) mg/dl Hemoglobin A1c (4.5-5.6) %
--- NOTE | 2021-02-26 10:27 | Cardiology Progress Note ---
Date of Service February 26, 2021 Assessment & Plan (1) Acute on chronic 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: Patient clinically improving with IV diuretic therapy. Continue IV Lasix 40 mg twice daily. Follow daily weight, fluid balance, GFR, electrolytes. Add Aldactone 12.5 mg daily. Repeat basic metabolic panel in a.m. (2) NICM (nonischemic cardiomyopathy): Cardiac catheterization performed in [place] demonstrating mild nonobstructive coronary disease in November. Continue evidence-based heart failure therapy including lisinopril and carvedilol. Aldactone added today, 02/26. Titrate carvedilol to 6.25 mg twice daily. Discontinue diltiazem. Monitor telemetry. (3) Chronic atrial fibrillation: Rate controlled. Discontinue diltiazem as this is not an optimal patient with reduced ejection fraction. Discussed transitioning carvedilol to beta selective medication, i.e. metoprolol. Patient reports intolerance to metoprolol in the past related to bradycardia. Titrate carvedilol cautiously to 6.25 mg twice daily. Patient is not anticoagulated due to history of GI bleeding. Status post watchman device implantation in 2019. (4) COPD (chronic obstructive pulmonary disease): Nebulizer treatment and corticosteroids as per internal medicine. (5) Chronic respiratory failure with hypoxia and hypercapnia: ABG reviewed. Continue medications as per internal medicine. Admission and Anticipated Discharge Date Admission Date: February 24, 2021 Subjective Patient seen and examined at the bedside. Denies chest pain. Orthopnea improved. Edema resolving. Mild cough with out sputum production present. Telemetry reveals atrial fibrillation with heart rate averaging 70-75 bpm. Patient offers no new concerns/complaints today. Review of Systems Review of Systems: All systems reviewed & are unremarkable except as noted in Subjective Physical Exam Constitutional: well developed, well nourished and + obese Respiratory: normal respiratory effort; no respiratory distress and no labored breathing Auscultation: + diminished lung sounds; no crackles, no rales, no rhonchi and no wheezes Cardiovascular: Rate/Rhythm: + irregularly irregular Heart Sounds: normal S1 and normal S2 Vessels: + JVD and radial pulses present; no carotid bruit Extremities: + edema (Trace bilateral pedal edema.) Gastrointestinal (Abdomen): Inspection/Auscultation: abdomen normal to inspection and normal bowel sounds; abdomen not distended Percussion/Palpation: abdomen soft; abdomen nontender, no guarding and abdomen not rigid Neurologic: moves all extremities; no focal motor deficits Motor/Sensory: no tremor Psychiatric: A+Ox3, euthymic affect Results & Data ([facility]) Vital Signs (Past 12 Hours) Vital Signs Temp Pulse Pulse Resp BP Pulse Ox 02/26/21 08:03 61 143/81 H 02/26/21 07:13 36.4 C L 89 18 139/59 L 92 02/26/21 07:00 59 L 02/26/21 04:02 36.7 C 65 18 120/64 98 02/26/21 00:00 37.0 C 81 18 109/71 96
[2021-02-26] MEDS: FLUTICASONE/VILANTEROL 100/25MCG 14 PUFFS/INHALER INH SCH (10:46)
[2021-02-26] MEDS: BRINZOLAMIDE (AZOPT) OPS 10 ML BTL OPB SCH ×2 (10:47→20:07)
[2021-02-26] MEDS: ALBUT/IPRATROP 3MG/0.5MG NEB 3 ML VIAL NEB PRN (10:51)
[2021-02-26] MEDS: UMECLIDINIUM BROMIDE 62.5MCG/BLISTER 7 PUFFS/INHALER INH SCH (10:54)
[2021-02-26] MEDS: SPIRONOLACTONE 12.5 MG TAB PO SCH (12:01)
[2021-02-26] MEDS: BIMATOPROST 0.01% OP SOLN 2.5 ML BTL OPB SCH (20:07)
[2021-02-26] MEDS: ATORVASTATIN 40 MG TAB PO SCH (20:08)
[2021-02-26] MEDS: carvediloL 6.25 MG TAB PO SCH (20:08)
[2021-02-27 08:09] LABS: BUN Creatinine Ratio 25.9 (10-20); Calcium 9.4 mg/dl (8.5-10.1); Creatinine Clr Calc Pharmacy 55.4 ml/min; Est GFR (African American) 61.5 ml/min; Est GFR (Non-African American) 53.1 ml/min; Magnesium 2.1 mg/dl (1.8-2.4); Potassium 3.4 mmol/L (3.5-5.1)
[2021-02-27 08:10] LABS: Phosphorus 3.6 mg/dl (2.5-4.9)
--- NOTE | 2021-02-27 08:36 | Hospitalist Progress Note ---
Date of Service February 27, 2021 Assessment & Plan (1) Acute decompensated heart failure: Orthopnea, PND, dyspnea on exertion for 3 days in setting of recent medication change of decreasing Lasix dose now 40mg daily Was admitted to [facility] and found to have acute decompensated CHF TTE performed at that time with estimated EF: 35-40%, mild , mild MS, mod MR, borderline pulm HTN with est pulmonary artery systolic pressure is 44 mmHg, grade 1 diastolic dysfunction Started on Coreg 3.125 mg twice daily and lisinopril 2.5 mg daily at that time Acute on chronic systolic heart failure Currently on 40mg IV lasix BID Spironolactone 12.5mg daily was added during this admission 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 Will change to lasix 80mg AM and 40mg PM and monitor Monitor I/O. Daily weights Diltiazem was discontinued and coreg was increased Hypokalemic today. Replete and monitor (2) COPD (chronic obstructive pulmonary disease): (3) Asthma: Mild COPD exacerbation ABG findings show chronic respiratory acidosis with compensation - pH 7.4, pCO2 58, HCO3 35 Was managed with nebs and prednisone Stable now Discontinue prednisone Currently at baseline home oxygen 2l/min (4) JORDAN (obstructive sleep apnea): Diagnosed with JORDAN in the past but has not trialed CPAP -uses 4 L nasal cannula at bedtime Did not tolerated CPAP HS due to comfort Will need outpatient sleep study upon discharge (5) Diabetes mellitus, type 2: Hold home agents SSI while in-patient BSG AC HS (6) Paroxysmal atrial fibrillation: EKG showing a atrial fibrillation with heart rate of 87 p.m. Not on anticoagulation due to history of GI bleeding DVT Ppx: SCDs Code status: FULL Plan for discharge tomorrow after reviewing labs and following up with [employer] PT/OT evaluation Admission and Anticipated Discharge Date Admission Date: February 24, 2021 Subjective 80yo F with a PMH of asthma, COPD, chronic hypoxic respiratory failure on 2L [place] O2, JORDAN intolerant to CPAP, DM type II, paroxysmal atrial fibrillation status post watchman procedure not anticoagulated due to history of GI bleeding, chronic diastolic CHF, GIST tumor under surveillance and other problems who presents the ED with dyspnea on exertion, orthopnea and PND over 3 days. Being managed for acute on chronic systolic and diastolic heart failure. Patient seen and examined. Reports improvement in orthopnea, PND and dyspnea. Reports feeling more tired today. Review of Systems Review of Systems: All systems reviewed & are unremarkable except as noted in Subjective Physical Exam Constitutional: + well hydrated and + obese; no acute distress Eyes: PERRL, conjunctivae normal, anicteric sclerae ENMT: external ear and nose normal, oropharynx normal Respiratory: normal respiratory effort; no respiratory distress Auscultation: + diminished lung sounds; no crackles and no wheezes Cardiovascular: Rate/Rhythm: + irregularly irregular Extremities: no edema S1 S2 Gastrointestinal (Abdomen): normal bowel sounds, soft, nontender, no hepatosplenomegaly Musculoskeletal: no cyanosis or clubbing, extremities motor strength 5/5 Neurologic: PERRL, EOMI, accommodation nl, no face palsy, no dysarthria Psychiatric: A+Ox3, euthymic affect Results & Data Results & Data ([facility]) Vital Signs (Past 12 Hours) Vital Signs Temp Pulse Pulse Resp BP Pulse Ox 02/27/21 07:03 36.4 C L 64 18 102/59 L 97 02/27/21 07:00 58 L 02/27/21 03:41 36.5 C 73 18 91/60 L 97 02/26/21 23:55 64 02/26/21 23:11 36.6 C 75 20 116/72 97 Laboratory Results Abnormal lab results 02/26/21 02/26/21 02/27/21 Range/Units 16:45 20:04 06:54 Potassium 3.4 L (3.5-5.1) mmol/L Carbon Dioxide 34 H (21-32) mmol/L BUN 26 H (7-18) mg/dl BUN/Creatinine Ratio 25.9 H (10-20) Glucose 120 H (70-99) mg/dl POC Glucose 169 H 173 H (70-99) mg/dl 02/27/21 02/27/21 Range/Units 07:21 11:18 Potassium (3.5-5.1) mmol/L Carbon Dioxide (21-32) mmol/L BUN (7-18) mg/dl BUN/Creatinine Ratio (10-20) Glucose (70-99) mg/dl POC Glucose 110 H 147 H (70-99) mg/dl
[2021-02-27] MEDS: DICYCLOMINE HCL 20 MG TAB PO SCH ×2 (08:47→21:46)
[2021-02-27] MEDS: PANTOprazole 40 MG TAB PO SCH ×2 (08:47→21:48)
[2021-02-27] MEDS: POTASSIUM CHLORIDE 10 MEQ TABCR PO SCH (08:47)
[2021-02-27] MEDS: DOCUSATE SODIUM 100 MG CAP PO SCH (08:47)
[2021-02-27] MEDS: FERROUS SULFATE 325 MG TAB PO SCH (08:47)
[2021-02-27] MEDS: carvediloL 6.25 MG TAB PO SCH ×2 (08:47→21:45)
[2021-02-27] MEDS: predniSONE 20 MG TAB PO SCH (08:47)
[2021-02-27] MEDS: CHOLECALCIFEROL 1,000 UNITS 25 MCG TAB PO SCH (08:48)
[2021-02-27] MEDS: lisinopril 2.5 MG TAB PO SCH (08:48)
[2021-02-27] MEDS: ADVANCED PROBIOTIC 1250 MG CAPSULE PO SCH (08:48)
[2021-02-27] MEDS: FUROSEMIDE 40 MG in SYRINGE 0 ML IV SCH (08:48)
[2021-02-27] MEDS: INSULIN ASPART 100 UNITS/ML 3 ML PEN SC SCH ×4 (08:48→21:51)
[2021-02-27] MEDS: MULTIVITAMIN TAB PO SCH (08:48)
[2021-02-27] MEDS: ASPIRIN 81 MG ECTAB PO SCH (08:48)
[2021-02-27] MEDS: FLUTICASONE/VILANTEROL 100/25MCG 14 PUFFS/INHALER INH SCH (08:50)
[2021-02-27] MEDS: BRINZOLAMIDE (AZOPT) OPS 10 ML BTL OPB SCH ×2 (08:50→21:43)
[2021-02-27] MEDS: UMECLIDINIUM BROMIDE 62.5MCG/BLISTER 7 PUFFS/INHALER INH SCH (08:51)
[2021-02-27] MEDS: SPIRONOLACTONE 12.5 MG TAB PO SCH (09:09)
[2021-02-27] MEDS: HYDROCODONE/ACETAMOPHEN 5/325MG TAB PO PRN (09:20)
[2021-02-27] MEDS: ALBUT/IPRATROP 3MG/0.5MG NEB 3 ML VIAL NEB PRN (09:26)
[2021-02-27] MEDS ORDERED: POTASSIUM CHLORIDE CRTAB 20 MEQ TABCR PO STA (11:52)
--- NOTE | 2021-02-27 12:18 | Electrocardiogram Report ---
Test Reason : Blood Pressure : / mmHG Vent. Rate : 068 BPM Atrial Rate : 085 BPM P-R Int : 000 ms QRS Dur : 130 ms QT Int : 436 ms P-R-T Axes : 000 -49 -34 degrees QTc Int : 463 ms Atrial fibrillation Left axis deviation Non-specific intra-ventricular conduction block T wave abnormality, consider lateral ischemia Abnormal ECG When compared with ECG of 24-FEB-2021 15:13, T wave inversion now evident in Inferior leads T wave inversion more evident in Anterolateral leads Confirmed by Samuel Thomas ([id number] on 02/27/2021 12:18:02 PM Referred By: REFERRED SELF Confirmed By:Jigar Thomas
--- NOTE | 2021-02-27 12:39 | Cardiology Progress Note ---
Date of Service February 27, 2021 Assessment & Plan (1) Acute on chronic 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: Discontinue IV diuretic therapy. Previously treated with 80 mg of furosemide twice daily prior to de-escalation of diuretic therapy more than 1 month ago. I suspect this contributed to her current admission. Recommend restarting oral furosemide, 80 mg in the morning, 40 in the evening. Continue Aldactone as ordered during this hospitalization. Follow daily weight, fluid balance, GFR, electrolytes. (2) NICM (nonischemic cardiomyopathy): Cardiac catheterization performed in [place] demonstrating mild nonobstructive coronary disease in November. Continue evidence-based heart failure therapy including lisinopril and carvedilol. Aldactone added today, 02/26. Diltiazem discontinued during hospitalization. Carvedilol titrated to 6.25 mg twice daily. (3) Chronic atrial fibrillation: Rate controlled. Diltiazem discontinued 02/26 with concomitant titration of carvedilol to 6.25 mg twice daily. Patient is not anticoagulated due to history of GI bleeding. Status post watchman device implantation in 2019. (4) COPD (chronic obstructive pulmonary disease): Nebulizer treatment and corticosteroids as per internal medicine. (5) Chronic respiratory failure with hypoxia and hypercapnia: ABG reviewed. Continue medications as per internal medicine. Admission and Anticipated Discharge Date Admission Date: February 24, 2021 Subjective Patient seen and examined at the bedside. Feeling better from a respiratory perspective. Denies chest pain. Shortness of breath improving. Lower extremity edema has resolved. Oxygen requirements and renal function remain stable. Diltiazem discontinued. Carvedilol titrated to 6.25 mg twice daily. Telemetry reveals atrial fibrillation with adequate rate control. Review of Systems Review of Systems: All systems reviewed & are unremarkable except as noted in Subjective Physical Exam Constitutional: well developed, well nourished and + obese Respiratory: normal respiratory effort; no respiratory distress and no labored breathing Auscultation: + diminished lung sounds; no crackles, no rales, no rhonchi and no wheezes Cardiovascular: Rate/Rhythm: + irregularly irregular Heart Sounds: normal S1 and normal S2 Vessels: + JVD and radial pulses present; no carotid bruit Extremities: no edema Gastrointestinal (Abdomen): Inspection/Auscultation: abdomen normal to inspection and normal bowel sounds; abdomen not distended Percussion/Palpation: abdomen soft; abdomen nontender, no guarding and abdomen not rigid Neurologic: moves all extremities; no focal motor deficits Motor/Sensory: no tremor Psychiatric: A+Ox3, euthymic affect Results & Data ([facility]) Vital Signs (Past 12 Hours) Vital Signs Temp Pulse Pulse Resp BP Pulse Ox 02/27/21 11:46 36.9 C 82 16 125/84 94 02/27/21 09:27 73 18 96 02/27/21 08:46 61 106/73 02/27/21 07:03 36.4 C L 64 18 102/59 L 97 02/27/21 07:00 58 L 02/27/21 03:41 36.5 C 73 18 91/60 L 97
[2021-02-27] MEDS: FUROSEMIDE 40 MG TAB PO SCH (17:17)
[2021-02-27] MEDS: ATORVASTATIN 40 MG TAB PO SCH (21:43)
[2021-02-27] MEDS: BIMATOPROST 0.01% OP SOLN 2.5 ML BTL OPB SCH (21:44)
[2021-02-27] MEDS: MONTELUKAST SODIUM 10 MG TABLET PO SCH (21:47)
[2021-02-28] MEDS: ACETAMINOPHEN 325 MG TAB PO PRN (06:14)
[2021-02-28 06:27] LABS: BUN Creatinine Ratio 26.9 (10-20); Blood Urea Nitrogen 26 mg/dl (7-18); Calcium 9.2 mg/dl (8.5-10.1); Carbon Dioxide 37 mmol/L (21-32); Chloride 103 mmol/L (98-107); Creatinine Clr Calc Pharmacy 55.8 ml/min; Est GFR (African American) 62.3 ml/min; Est GFR (Non-African American) 53.7 ml/min; Glucose 126 mg/dl (70-99); Magnesium 2.4 mg/dl (1.8-2.4); Phosphorus 3.5 mg/dl (2.5-4.9); Sodium 141 mmol/L (136-145); Troponin I < 0.015 ng/ml (0-0.045)
[2021-02-28] MEDS: FLUTICASONE/VILANTEROL 100/25MCG 14 PUFFS/INHALER INH SCH (07:45)
[2021-02-28] MEDS: POTASSIUM CHLORIDE 10 MEQ TABCR PO SCH (07:46)
[2021-02-28] MEDS: FERROUS SULFATE 325 MG TAB PO SCH (07:46)
[2021-02-28] MEDS: DICYCLOMINE HCL 20 MG TAB PO SCH ×2 (07:46→20:30)
[2021-02-28] MEDS: ADVANCED PROBIOTIC 1250 MG CAPSULE PO SCH (07:47)
[2021-02-28] MEDS: SPIRONOLACTONE 12.5 MG TAB PO SCH (07:47)
[2021-02-28] MEDS: ASPIRIN 81 MG ECTAB PO SCH (07:47)
[2021-02-28] MEDS: lisinopril 2.5 MG TAB PO SCH (07:47)
[2021-02-28] MEDS: DOCUSATE SODIUM 100 MG CAP PO SCH (07:47)
[2021-02-28] MEDS: PANTOprazole 40 MG TAB PO SCH ×2 (07:48→20:32)
[2021-02-28] MEDS: CHOLECALCIFEROL 1,000 UNITS 25 MCG TAB PO SCH (07:48)
[2021-02-28] MEDS: FUROSEMIDE 80 MG TAB PO SCH (07:48)
[2021-02-28] MEDS: carvediloL 6.25 MG TAB PO SCH ×2 (07:48→20:30)
[2021-02-28] MEDS: MULTIVITAMIN TAB PO SCH (07:49)
[2021-02-28] MEDS: BRINZOLAMIDE (AZOPT) OPS 10 ML BTL OPB SCH ×2 (07:50→20:33)
[2021-02-28] MEDS: UMECLIDINIUM BROMIDE 62.5MCG/BLISTER 7 PUFFS/INHALER INH SCH (09:15)
[2021-02-28] MEDS: INSULIN ASPART 100 UNITS/ML 3 ML PEN SC SCH ×4 (09:19→20:53)
[2021-02-28] MEDS: ALBUT/IPRATROP 3MG/0.5MG NEB 3 ML VIAL NEB PRN (09:39)
[2021-02-28] MEDS ORDERED: DIGOXIN 0.125 MG TAB PO ONE (12:59)
--- NOTE | 2021-02-28 13:17 | Hospitalist Progress Note ---
Date of Service February 28, 2021 Assessment & Plan (1) Acute decompensated heart failure: Chronic Hypoxic Respiratory Failure per Dr. Dela Cruz's notes: Orthopnea, PND, dyspnea on exertion for 3 days in setting of recent medication change of decreasing Lasix dose now 40mg daily Was admitted to [facility] and found to have acute decompensated CHF TTE performed at that time with estimated EF: 35-40%, mild , mild MS, mod MR, borderline pulm HTN with est pulmonary artery systolic pressure is 44 mmHg, grade 1 diastolic dysfunction Started on Coreg 3.125 mg twice daily and lisinopril 2.5 mg daily at that time Acute on chronic systolic heart failure Currently on 40mg IV lasix BID --> changed to lasix 80mg AM and 40mg PM and monitor, Spironolactone 12.5mg daily was added negative fluid balance 1.2L overnight Diltiazem was discontinued and coreg was increased HR increases to 120s-130s with ambulation may need further titration of Coreg Cardiology SVC on board (2) COPD (chronic obstructive pulmonary disease): (3) Asthma: Chronic Hypoxic Respiratory Failure Mild COPD exacerbation per Dr. Dela Cruz's notes: ABG findings show chronic respiratory acidosis with compensation - pH 7.4, pCO2 58, HCO3 35 Was managed with nebs and prednisone Stable now Discontinued prednisone Currently at baseline home oxygen 2l/min (4) JORDAN (obstructive sleep apnea): per Dr. Dela Cruz's notes: Diagnosed with JORDAN in the past but has not trialed CPAP -uses 4 L nasal cannula at bedtime Did not tolerated CPAP HS due to comfort Will need outpatient sleep study upon discharge (5) Diabetes mellitus, type 2: Hold home agents SSI while in-patient BSG AC HS (6) Paroxysmal atrial fibrillation: EKG showing a atrial fibrillation with heart rate of 87 p.m. 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 correlating to when she ambulates reports 1 episode of loose BM this morning, with low quadrant discomfort no urinary symptoms, fever no other symptoms Review of Systems Review of Systems: All systems reviewed & are unremarkable except as noted in Subjective Physical Exam Physical Exam: General- oriented x 3, not in distress, speaks in sentences with no effort or accessory muscle use Eyes- anicteric Neck- no JVD Lungs- clear breath sounds bilaterally, no rales/wheezes Heart- normal rate, regular rhythm; no murmurs Abdomen- normal bowel sounds, nondistended, soft, nontender Extremities- no pretibial edema, no calf tenderness Neuro- alert, oriented x 3; no gross focal neurologic deficits Skin- warm & dry Results & Data Results & Data ([facility]) Vital Signs (Past 12 Hours) Vital Signs Temp Pulse Pulse Resp BP Pulse Ox 02/28/21 11:21 37.1 C 95 H 20 130/82 91 02/28/21 09:45 79 16 97 02/28/21 09:00 68 02/28/21 07:27 36.8 C 78 18 121/64 97 02/28/21 03:49 36.9 C 92 H 20 119/91 99
--- NOTE | 2021-02-28 13:31 | Cardiology Progress Note ---
Date of Service February 28, 2021 Assessment & Plan (1) Acute on chronic 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: IV diuretic therapy discontinued 02/27. Continue furosemide 80 mg in the a.m., 40 mg in the evening. Aldactone added during hospitalization, 12.5 mg da linda. Previously treated with 80 mg of furosemide twice daily prior to de-escalation of diuretic therapy more than 1 month ago. I suspect this contributed to her current admission. Follow daily weight, fluid balance, GFR, electrolytes. (2) Chronic atrial fibrillation: Symptomatic palpitations recorded overnight. Diltiazem discontinued 02/26. Recommend addition of digoxin, 250 mcg x 1 now then 125 mcg daily. Patient is not anticoagulated due to history of GI bleeding. Status post watchman device implantation in 2019. (3) NICM (nonischemic cardiomyopathy): Cardiac catheterization performed in [place] demonstrating mild nonobstructive coronary disease in November. Continue evidence-based heart fa ilure therapy including lisinopril and carvedilol. Aldactone added today, 02/26. Diltiazem discontinued 02/26. Carvedilol titrated to 6.25 mg twice daily. (4) COPD (chronic obstructive pulmonary disease): Nebulizer treatment and corticosteroids as per internal medicine. (5) Chronic respiratory failure with hypoxia and hypercapnia: ABG reviewed. Continue medications as per internal medicine. Admission and Anticipated Discharge Date Admission Date: February 24, 2021 Subjective Patient seen and examined at the bedside. Complains of poor night sleep. Up on several occasions due to palpitations. Describes a sensation of heart racing. Telemetry reveals generally well controlled atrial fibrillation with brief periods of RVR with heart rate ranging up to 120 bpm. Diltiazem discontinued 02/26. Coreg titrated to 6.25 mg twice daily. Denies chest pain. Dyspnea and cough improving. No edema. Denies orthopnea or PND. Review of Systems Review of Systems: All systems reviewed & are unremarkable except as noted in Subjective Physical Exam Constitutional: well developed, well nourished and + obese Respiratory: normal respiratory effort; no respiratory distress and no labored breathing Auscultation: + diminished lung sounds; no crackles, no rales, no rhonchi and no wheezes Cardiovascular: Rate/Rhythm: + irregularly irregular Heart Sounds: normal S1 and normal S2 Vessels: + JVD and radial pulses present; no carotid bruit Extremities: no edema Gastrointestinal (Abdomen): Inspection/Auscultation: abdomen normal to inspection and normal bowel sounds; abdomen not distended Percussion/Palpation: abdomen soft; abdomen nontender, no guarding and abdomen not rigid Neurologic: moves all extremities; no focal motor deficits Motor/Sensory: no tremor Psychiatric: A+Ox3, euthymic affect Results & Data ([facility]) Vital Signs (Past 12 Hours) Vital Signs Temp Pulse Pulse Resp BP Pulse Ox 02/28/21 11:21 37.1 C 95 H 20 130/82 91 02/28/21 09:45 79 16 97 02/28/21 09:00 68 02/28/21 07:27 36.8 C 78 18 121/64 97 02/28/21 03:49 36.9 C 92 H 20 119/91 99
[2021-02-28 14:07] LABS: Appearance Urine Clear (Clear); Bilirubin Urine Negative (Negative); Blood Urine Negative (Negative); Color Urine Yellow; Glucose Urine UA Negative (Negative); Ketones Urine Negative (Negative); Leukocyte Esterase Urine Negative (Negative); Nitrite Urine Negative (Negative); Protein Urine Negative (Negative); Urobilinogen Urine Negative (Negative)
[2021-02-28] MEDS: FUROSEMIDE 40 MG TAB PO SCH (18:06)
[2021-02-28] MEDS: HYDROCODONE/ACETAMOPHEN 5/325MG TAB PO PRN (19:32)
[2021-02-28] MEDS: ATORVASTATIN 40 MG TAB PO SCH (20:30)
[2021-02-28] MEDS: MONTELUKAST SODIUM 10 MG TABLET PO SCH (20:30)
[2021-02-28] MEDS: BIMATOPROST 0.01% OP SOLN 2.5 ML BTL OPB SCH (20:34)
[2021-03-01] MEDS ORDERED: NITROGLYCERIN SL 0.4 MG/TAB TAB SL STA (04:50)
[2021-03-01 05:34] LABS: Basophils # (auto) 0.02 K/uL (0-0.2); Basophils % (auto) 0.2 %; Eosinophils # (auto) 0.38 K/uL (0-0.5); Eosinophils % (auto) 3.1 %; Hematocrit (blood only) 36.6 % (37-47); Hemoglobin 11.6 g/dL (12.0-16.0); Immature Granulocytes # (auto) 0.04 K/uL (0.00-0.02); Immature Granulocytes % (auto) 0.3 %; Lymphocytes # (auto) 4.59 K/uL (1.2-3.4); Lymphocytes % (auto) 37.7 %; Mean Corpuscular Hemoglobin 28.6 pg (25-34); Mean Corpuscular Hgb Conc 31.7 g/dL (32-36); Mean Corpuscular Volume 90.1 fL (80-100); Mean Platelet Volume 9.5 fL (7.4-10.4); Monocytes # (auto) 1.55 K/uL (0.11-0.59); Monocytes % (auto) 12.7 %; Neutrophils # (auto) 5.61 K/uL (1.4-6.5); Platelet Count 355 K/uL (130-400); RDW Coefficient of Variation 14.8 % (11.5-14.5); RDW Standard Deviation 48.8 fL (36.4-46.3); Red Blood Count 4.06 M/uL (4.2-5.4); White Blood Count 12.19 K/uL (4.8-10.8)
[2021-03-01 05:48] LABS: Partial Thromboplastin Ratio 0.9; Partial Thromboplastin Time 24.8 Seconds (21.0-31.0)
[2021-03-01 06:05] LABS: Alanine Aminotransferase 12 U/L (12-78); Aspartate Aminotransferase 9 U/L (15-37); BUN Creatinine Ratio 26.2 (10-20); Blood Urea Nitrogen 23 mg/dl (7-18); Calcium 9.1 mg/dl (8.5-10.1); Carbon Dioxide 38 mmol/L (21-32); Chloride 102 mmol/L (98-107); Creatinine Clr Calc Pharmacy 62.2 ml/min; Est GFR (African American) 70.9 ml/min; Est GFR (Non-African American) 61.2 ml/min; Glucose 108 mg/dl (70-99); Magnesium 2.3 mg/dl (1.8-2.4); Potassium 4.2 mmol/L (3.5-5.1); Sodium 141 mmol/L (136-145)
[2021-03-01 06:09] LABS: Albumin Globulin Ratio 0.8 (0.9-2); Alkaline Phosphatase 106 U/L (45-117); Bilirubin,Total 0.5 mg/dl (0.2-1); Globulin 3.7 gm/dl (2.5-4.0); Total Protein 6.7 gm/dl (6.4-8.2); Troponin I < 0.015 ng/ml (0-0.045)
[2021-03-01] MEDS: carvediloL 6.25 MG TAB PO SCH ×2 (06:12→20:14)
[2021-03-01] MEDS: FLUTICASONE/VILANTEROL 100/25MCG 14 PUFFS/INHALER INH SCH (07:38)
[2021-03-01] MEDS: FERROUS SULFATE 325 MG TAB PO SCH (07:39)
[2021-03-01] MEDS: DOCUSATE SODIUM 100 MG CAP PO SCH (07:39)
[2021-03-01] MEDS: CHOLECALCIFEROL 1,000 UNITS 25 MCG TAB PO SCH (07:39)
[2021-03-01] MEDS: PANTOprazole 40 MG TAB PO SCH ×2 (07:39→20:13)
[2021-03-01] MEDS: SPIRONOLACTONE 12.5 MG TAB PO SCH (07:39)
[2021-03-01] MEDS: ASPIRIN 81 MG ECTAB PO SCH (07:40)
[2021-03-01] MEDS: MULTIVITAMIN TAB PO SCH (07:40)
[2021-03-01] MEDS: ADVANCED PROBIOTIC 1250 MG CAPSULE PO SCH (07:40)
[2021-03-01] MEDS: DICYCLOMINE HCL 20 MG TAB PO SCH ×2 (07:40→20:12)
[2021-03-01] MEDS: DIGOXIN 0.125 MG TAB PO SCH (07:40)
[2021-03-01] MEDS: lisinopril 2.5 MG TAB PO SCH (07:40)
[2021-03-01] MEDS: FUROSEMIDE 80 MG TAB PO SCH (07:41)
[2021-03-01] MEDS: POTASSIUM CHLORIDE 10 MEQ TABCR PO SCH (07:41)
[2021-03-01] MEDS: BRINZOLAMIDE (AZOPT) OPS 10 ML BTL OPB SCH ×2 (07:42→20:10)
[2021-03-01] MEDS: ALBUT/IPRATROP 3MG/0.5MG NEB 3 ML VIAL NEB PRN (08:31)
[2021-03-01] MEDS: INSULIN ASPART 100 UNITS/ML 3 ML PEN SC SCH ×4 (09:17→21:37)
[2021-03-01] MEDS: UMECLIDINIUM BROMIDE 62.5MCG/BLISTER 7 PUFFS/INHALER INH SCH (09:19)
[2021-03-01] MEDS: HYDROCODONE/ACETAMOPHEN 5/325MG TAB PO PRN ×2 (09:26→17:32)
[2021-03-01] MEDS: FUROSEMIDE 40 MG TAB PO SCH (16:34)
--- NOTE | 2021-03-01 17:20 | Hospitalist Progress Note ---
Date of Service March 01, 2021 Assessment & Plan (1) Acute decompensated heart failure: Chronic Hypoxic Respiratory Failure per Dr. Dela Cruz's notes: Orthopnea, PND, dyspnea on exertion for 3 days in setting of recent medication change of decreasing Lasix dose now 40mg daily Was admitted to [facility] and found to have acute decompensated CHF TTE performed at that time with estimated EF: 35-40%, mild , mild MS, mod MR, borderline pulm HTN with est pulmonary artery systolic pressure is 44 mmHg, grade 1 diastolic dysfunction Started on Coreg 3.125 mg twice daily and lisinopril 2.5 mg daily at that time Acute on chronic systolic heart failure Currently on 40mg IV lasix BID --> changed to lasix 80mg AM and 40mg PM and monitor, Spironolactone 12.5mg daily was added negative fluid balance 175ml overnight Diltiazem was discontinued and Coreg was increased Digoxin added HR seems to be improving continue to monitor weakness, BP may need further titration of Coreg Cardiology SVC on board (2) COPD (chronic obstructive pulmonary disease): (3) Asthma: Chronic Hypoxic Respiratory Failure Mild COPD exacerbation per Dr. Dela Cruz's notes: ABG findings show chronic respiratory acidosis with compensation - pH 7.4, pCO2 58, HCO3 35 Was managed with nebs and prednisone Stable now Discontinued prednisone Currently at baseline home oxygen 2l/min (4) JORDAN (obstructive sleep apnea): per Dr. Dela Cruz's notes: Diagnosed with JORDAN in the past but has not trialed CPAP -uses 4 L nasal cannula at bedtime Did not tolerated CPAP HS due to comfort Will need outpatient sleep study upon discharge (5) Diabetes mellitus, type 2: Hold home agents SSI while in-patient BSG AC HS (6) Paroxysmal atrial fibrillation: EKG showing a atrial fibrillation with heart rate of 87 p.m. Not on anticoagulation due to history of GI bleeding management per #1 DVT Ppx: SCDs Code status: FULL PT/OT evaluation patient lives at home- plans to return home when medically stable with home health service Admission and Anticipated Discharge Date Admission Date: February 24, 2021 Subjective ff up for CHF, A fib etc seen resting in bed, not in distress had few second episode of chest pain this morning- resolved reports mild weakness when ambulating no dyspnea no abdominal pain, nausea, fever/chills diarrhea resolved no other symptoms Review of Systems Review of Systems: All systems reviewed & are unremarkable except as noted in Subjective Physical Exam Physical Exam: General- oriented x 3, not in distress, speaks in sentences with no effort or accessory muscle use Eyes- anicteric Neck- no JVD Lungs- clear BS BL Heart- normal rate, regular rhythm; no murmurs Abdomen- normal bowel sounds, nondistended, soft, nontender Extremities- no pretibial edema, no calf tenderness Neuro- alert, oriented x 3; no gross focal neurologic deficits Skin- warm & dry Results & Data Results & Data ([facility]) Vital Signs (Past 12 Hours) Vital Signs Temp Pulse Pulse Resp BP Pulse Ox 03/01/21 15:33 36.4 C L 83 19 116/66 93 03/01/21 15:00 73 03/01/21 11:51 36.7 C 82 18 91/58 L 94 03/01/21 08:31 50 L 18 96 03/01/21 08:30 74 03/01/21 08:03 36.8 C 93 H 20 114/68 97 03/01/21 07:40 84 all noted and reviewed including below Laboratory Results Laboratory Results - last 24 hr 02/28/21 02/28/21 02/28/21 20:03 20:04 20:06 WBC RBC Hgb Hct MCV MCH MCHC RDW Std Deviation RDW Coeff of Jesika Plt Count MPV Immature Gran % (Auto) Neut % (Auto) Lymph % (Auto) [place] % (Auto) Eos % (Auto) Baso % (Auto) Neut # (Auto) Lymph # (Auto) [place] # (Auto) Eos # (Auto) Baso # (Auto) Immature Gran # (Auto) APTT PTT Ratio Sodium Potassium Chloride Carbon Dioxide Anion Gap BUN Creatinine Est Cr Clr Drug Dosing Est GFR ( Amer) Est GFR (Non-Af Amer) BUN/Creatinine Ratio Glucose POC Glucose 60 L* 74 68 L* Calcium Magnesium Total Bilirubin AST ALT Alkaline Phosphatase Troponin I Total Protein Albumin Globulin Albumin/Globulin Ratio 02/28/21 03/01/21 03/01/21 20:27 05:25 05:25 WBC 12.19 H RBC 4.06 L Hgb 11.6 L Hct 36.6 L MCV 90.1 MCH 28.6 MCHC 31.7 L RDW Std Deviation 48.8 H RDW Coeff of Jesika 14.8 H Plt Count 355 MPV 9.5 Immature Gran % (Auto) 0.3 Neut % (Auto) 46.0 Lymph % (Auto) 37.7 [place] % (Auto) 12.7 Eos % (Auto) 3.1 Baso % (Auto) 0.2 Neut # (Auto) 5.61 Lymph # (Auto) 4.59 H [place] # (Auto) 1.55 H Eos # (Auto) 0.38 Baso # (Auto) 0.02 Immature Gran # (Auto) 0.04 H APTT 24.8 PTT Ratio 0.9 Sodium Potassium Chloride Carbon Dioxide Anion Gap BUN Creatinine Est Cr Clr Drug Dosing Est GFR ( Amer) Est GFR (Non-Af Amer) BUN/Creatinine Ratio Glucose POC Glucose 96 Calcium Magnesium Total Bilirubin AST ALT Alkaline Phosphatase Troponin I Total Protein Albumin Globulin Albumin/Globulin Ratio 03/01/21 03/01/21 03/01/21 05:25 07:55 11:33 WBC RBC Hgb Hct MCV MCH MCHC RDW Std Deviation RDW Coeff of Jesika Plt Count MPV Immature Gran % (Auto) Neut % (Auto) Lymph % (Auto) [place] % (Auto) Eos % (Auto) Baso % (Auto) Neut # (Auto) Lymph # (Auto) [place] # (Auto) Eos # (Auto) Baso # (Auto) Immature Gran # (Auto) APTT PTT Ratio Sodium 141 Potassium 4.2 Chloride 102 Carbon Dioxide 38 H Anion Gap 1.0 L BUN 23 H Creatinine 0.88 Est Cr Clr Drug Dosing 62.2 Est GFR ( Amer) 70.9 Est GFR (Non-Af Amer) 61.2 BUN/Creatinine Ratio 26.2 H Glucose 108 H POC Glucose 106 H 138 H Calcium 9.1 Magnesium 2.3 Total Bilirubin 0.5 AST 9 L ALT 12 Alkaline Phosphatase 106 Troponin I < 0.015 Total Protein 6.7 Albumin 3.0 L Globulin 3.7 Albumin/Globulin Ratio 0.8 L 03/01/21 03/01/21 13:03 16:23 WBC RBC Hgb Hct MCV MCH MCHC RDW Std Deviation RDW Coeff of Jesika Plt Count MPV Immature Gran % (Auto) Neut % (Auto) Lymph % (Auto) [place] % (Auto) Eos % (Auto) Baso % (Auto) Neut # (Auto) Lymph # (Auto) [place] # (Auto) Eos # (Auto) Baso # (Auto) Immature Gran # (Auto) APTT PTT Ratio Sodium Potassium Chloride Carbon Dioxide Anion Gap BUN Creatinine Est Cr Clr Drug Dosing Est GFR ( Amer) Est GFR (Non-Af Amer) BUN/Creatinine Ratio Glucose POC Glucose 177 H 116 H Calcium Magnesium Total Bilirubin AST ALT Alkaline Phosphatase Troponin I Total Protein Albumin Globulin Albumin/Globulin Ratio
--- NOTE | 2021-03-01 17:58 | Cardiology Progress Note ---
Date of Service March 01, 2021 Assessment & Plan (1) Acute on chronic 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: Continue furosemide 80 mg in the a.m., 40 mg in the evening. Aldactone added during hospitalization, 12.5 mg daily. Previously treated with 80 mg of furosemide twice daily prior to de-escalation of diuretic therapy more than 1 month ago. I suspect this contributed to her current admission. Follow daily weight, fluid balance, GFR, electrolytes. (2) Chronic atrial fibrillation: Diltiazem discontinued 02/26 due to NICM. Continue carvedilol 6.25mg BID and digoxin 125 mcg daily. Patient is not anticoagulated due to history of GI bleeding. Status post watchman device implantation in 2019. (3) NICM (nonischemic cardiomyopathy): Cardiac catheterization performed in [place] demonstrating mild nonobstructive coronary disease in November. Continue evidence-based heart failure therapy including lisinopril and carvedilol. Aldactone added today, 02/26. Diltiazem discontinued 02/26. Carvedilol titrated to 6.25 mg twice daily. Digoxin added 02/28/21. (4) COPD (chronic obstructive pulmonary disease): Nebulizer treatment and corticosteroids as per internal medicine. (5) Chronic respiratory failure with hypoxia and hypercapnia: ABG reviewed. Continue medications as per internal medicine. Admission and Anticipated Discharge Date Admission Date: February 24, 2021 Subjective Patient seen and examined the bedside. Denies chest pain or shortness of breath. No recurrent palpitations. Tolerating digoxin in addition to carvedilol. Episode of neck and left-sided chest discomfort reported this a.m. No ischemic changes on ECG. Cardiac enzymes undetectable. Feeling better now. No recurrent chest discomfort throughout the day. Review of Systems Review of Systems: All systems reviewed & are unremarkable except as noted in Subjective Physical Exam Constitutional: well developed, well nourished and + obese Respiratory: normal respiratory effort; no respiratory distress and no labored breathing Auscultation: + diminished lung sounds; no crackles, no rales, no rhonchi and no wheezes Cardiovascular: Rate/Rhythm: + irregularly irregular Heart Sounds: normal S1 and normal S2 Vessels: + JVD and radial pulses present; no carotid bruit Extremities: no edema Gastrointestinal (Abdomen): Inspection/Auscultation: abdomen normal to inspection and normal bowel sounds; abdomen not distended Percussion/Palpation: abdomen soft; abdomen nontender, no guarding and abdomen not rigid Neurologic: moves all extremities; no focal motor deficits Motor/Sensory: no tremor Psychiatric: A+Ox3, euthymic affect Results & Data ([facility]) Vital Signs (Past 12 Hours) Vital Signs Temp Pulse Pulse Resp BP Pulse Ox 03/01/21 15:33 36.4 C L 83 19 116/66 93 03/01/21 15:00 73 03/01/21 11:51 36.7 C 82 18 91/58 L 94 03/01/21 08:31 50 L 18 96 03/01/21 08:30 74 03/01/21 08:03 36.8 C 93 H 20 114/68 97 03/01/21 07:40 84
--- NOTE | 2021-03-01 18:37 | Electrocardiogram Report ---
Test Reason : Blood Pressure : / mmHG Vent. Rate : 085 BPM Atrial Rate : 078 BPM P-R Int : 000 ms QRS Dur : 126 ms QT Int : 404 ms P-R-T Axes : 000 -52 095 degrees QTc Int : 480 ms Atrial fibrillation Left axis deviation Non-specific intra-ventricular conduction block Nonspecific T wave abnormality Abnormal ECG When compared with ECG of 26-FEB-2021 14:59, T wave inversion no longer evident in Inferior leads T wave inversion no longer evident in Lateral leads Confirmed by Samuel Thomas ([id number] on 03/01/2021 6:36:35 PM Referred By: REFERRED SELF Confirmed By:Jigar Thomas
[2021-03-01] MEDS: ACETAMINOPHEN 325 MG TAB PO PRN (20:09)
[2021-03-01] MEDS: BIMATOPROST 0.01% OP SOLN 2.5 ML BTL OPB SCH (20:10)
[2021-03-01] MEDS: ATORVASTATIN 40 MG TAB PO SCH (20:10)
[2021-03-01] MEDS: MONTELUKAST SODIUM 10 MG TABLET PO SCH (20:12)
[2021-03-02] MEDS: HYDROCODONE/ACETAMOPHEN 5/325MG TAB PO PRN ×2 (02:26→11:36)
[2021-03-02] MEDS: INSULIN ASPART 100 UNITS/ML 3 ML PEN SC SCH ×2 (08:45→12:00)
[2021-03-02] MEDS: SPIRONOLACTONE 12.5 MG TAB PO SCH (08:46)
[2021-03-02] MEDS: FLUTICASONE/VILANTEROL 100/25MCG 14 PUFFS/INHALER INH SCH (08:46)
[2021-03-02] MEDS: carvediloL 6.25 MG TAB PO SCH (08:46)
[2021-03-02] MEDS: BRINZOLAMIDE (AZOPT) OPS 10 ML BTL OPB SCH (08:46)
[2021-03-02] MEDS: CHOLECALCIFEROL 1,000 UNITS 25 MCG TAB PO SCH (08:47)
[2021-03-02] MEDS: DOCUSATE SODIUM 100 MG CAP PO SCH (08:47)
[2021-03-02] MEDS: ASPIRIN 81 MG ECTAB PO SCH (08:47)
[2021-03-02] MEDS: DICYCLOMINE HCL 20 MG TAB PO SCH (08:47)
[2021-03-02] MEDS: POTASSIUM CHLORIDE 10 MEQ TABCR PO SCH (08:47)
[2021-03-02] MEDS: FUROSEMIDE 80 MG TAB PO SCH (08:47)
[2021-03-02] MEDS: lisinopril 2.5 MG TAB PO SCH (08:47)
[2021-03-02] MEDS: FERROUS SULFATE 325 MG TAB PO SCH (08:47)
[2021-03-02] MEDS: PANTOprazole 40 MG TAB PO SCH (08:47)
[2021-03-02] MEDS: ADVANCED PROBIOTIC 1250 MG CAPSULE PO SCH (08:48)
[2021-03-02] MEDS: DIGOXIN 0.125 MG TAB PO SCH (08:48)
[2021-03-02] MEDS: MULTIVITAMIN TAB PO SCH (08:48)
[2021-03-02] MEDS: UMECLIDINIUM BROMIDE 62.5MCG/BLISTER 7 PUFFS/INHALER INH SCH (08:49)
--- NOTE | 2021-03-02 11:51 | Cardiology Progress Note ---
Date of Service March 02, 2021 Assessment & Plan (1) Acute on chronic 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: Continue furosemide 80 mg in the a.m., 40 mg in the evening. Aldactone added during hospitalization, 12.5 mg daily. Follow daily weight, fluid balance, GFR, electrolytes. No further inpatient cardiac testing or intervention. Follow-up with her outpatient assistant professor of chemistry, Dr. Meza in 1-2 weeks. Cardiology will sign off. Please call with questions. (2) Chronic atrial fibrillation: Diltiazem discontinued 02/26 due to NICM. Continue carvedilol 6.25mg BID and digoxin 125 mcg daily. Patient is not anticoagulated due to history of GI bleeding. Status post watchman device implantation in 2019. (3) NICM (nonischemic cardiomyopathy): Cardiac catheterization performed in [place] demonstrating mild nonobstructive coronary disease in November 2020. Continue evidence-based heart failure therapy including lisinopril and carvedilol. Aldactone added today, 02/26. Diltiazem discontinued 02/26. Carvedilol titrated to 6.25 mg twice daily. Digoxin added 02/28/21. (4) COPD (chronic obstructive pulmonary disease): Nebulizer treatment and corticosteroids as per internal medicine. (5) Chronic respiratory failure with hypoxia and hypercapnia: ABG reviewed. Continue medications as per internal medicine. Admission and Anticipated Discharge Date Admission Date: February 24, 2021 Subjective Patient seen and examined the bedside. Feeling better today. No chest pain or shortness of breath. Denies recurrent palpitations. Tolerating diet and medic ations. Telemetry reveals rate controlled atrial fibrillation. Maximum heart rate of 110 bpm recorded during activity, otherwise, averaging 70-80 bpm. Review of Systems Review of Systems: All systems reviewed & are unremarkable except as noted in Subjective Physical Exam Constitutional: well developed, well nourished and + obese Respiratory: normal respiratory effort; no respiratory distress and no labored breathing Auscultation: + diminished lung sounds; no crackles, no rales, no rhonchi and no wheezes Cardiovascular: Rate/Rhythm: + irregularly irregular Heart Sounds: normal S1 and normal S2 Vessels: + JVD and radial pulses present; no carotid bruit Extremities: no edema Gastrointestinal (Abdomen): Inspection/Auscultation: abdomen normal to inspection and normal bowel sounds; abdomen not distended Percussion/Palpation: abdomen soft; abdomen nontender, no guarding and abdomen not rigid Neurologic: moves all extremities; no focal motor deficits Motor/Sensory: no tremor Psychiatric: A+Ox3, euthymic affect Results & Data ([facility]) Vital Signs (Past 12 Hours) Vital Signs Temp Pulse Pulse Resp BP Pulse Ox 03/02/21 11:36 36.4 C L 93 H 18 95/72 L 95 03/02/21 08:48 79 03/02/21 07:40 36.4 C L 79 19 112/71 95 03/02/21 03:25 36.6 C 89 18 113/76 94 03/02/21 00:17 82
--- NOTE | 2021-03-02 12:44 | Hospitalist Progress Note ---
Date of Service March 02, 2021 Assessment & Plan (1) Acute decompensated heart failure: Chronic Hypoxic Respiratory Failure per Dr. Dela Cruz's notes: Orthopnea, PND, dyspnea on exertion for 3 days in setting of recent medication change of decreasing Lasix dose now 40mg daily Was admitted to [facility] and found to have acute decompensated CHF TTE performed at that time with estimated EF: 35-40%, mild , mild MS, mod MR, borderline pulm HTN with est pulmonary artery systolic pressure is 44 mmHg, grade 1 diastolic dysfunction Started on Coreg 3.125 mg twice daily and lisinopril 2.5 mg daily at that time Acute on chronic systolic heart failure Watch Parts Inspector Dr. Lopez consulted Currently on 40mg IV lasix BID --> changed to lasix 80mg AM and 40mg PM and monitor, Spironolactone 12.5mg daily was added now euvolemic Diltiazem was discontinued and Coreg was increased to 6.25mg BID Digoxin 125mcg po daily added HR improved ff up with Watch Parts Inspector in 2 weeks (2) COPD (chronic obstructive pulmonary disease): (3) Asthma: Chronic Hypoxic Respiratory Failure Mild COPD exacerbation per Dr. Dela Cruz's notes: ABG findings show chronic respiratory acidosis with compensation - pH 7.4, pCO2 58, HCO3 35 Was managed with nebs and prednisone Stable now Discontinued prednisone Currently at baseline home oxygen 2l/min (4) JORDAN (obstructive sleep apnea): per Dr. Dela Cruz's notes: Diagnosed with JORDAN in the past but has not trialed CPAP -uses 4 L nasal cannula at bedtime Did not tolerated CPAP HS due to comfort Will need outpatient sleep study upon discharge (5) Diabetes mellitus, type 2: continue home medications (6) Paroxysmal atrial fibrillation: EKG showing a atrial fibrillation with heart rate of 87 p.m. Not on anticoagulation due to history of GI bleeding management per #1 DVT Ppx: SCDs Code status: FULL PT/OT evaluation: recommend return home Disposition: d/c home ff up with PCP in 1 week, Watch Parts Inspector Dr. Lopez in 2 weeks plan of care discussed with patient in detail and at length all questions answered she is understanding, agreeable, comfortable with the plan of care Admission and Anticipated Discharge Date Admission Date: February 24, 2021 Subjective ff up for acute CHF, etc seen resting in bed, comfortable not in distress states she feels better overall denies chest pain, dyspnea, dizziness, nausea ambulating with no problems no other issues states she is ready and would like to be discharged today Review of Systems Review of Systems: All systems reviewed & are unremarkable except as noted in Subjective Physical Exam Physical Exam: General- oriented x 3, not in distress, speaks in sentences with no effort or accessory muscle use Eyes- anicteric Neck- no JVD Lungs- clear BS BL Heart- normal rate, regular rhythm; no murmurs Abdomen- normal BS, nondistended, soft, nontender Extremities- no pretibial edema, no calf tenderness Neuro- alert, oriented x 3; no gross focal neurologic deficits Skin- warm & dry Results & Data Results & Data ([facility]) Vital Signs (Past 12 Hours) Vital Signs Temp Pulse Pulse Resp BP Pulse Ox 03/02/21 11:36 36.4 C L 93 H 18 95/72 L 95 03/02/21 08:48 79 03/02/21 07:40 36.4 C L 79 19 112/71 95 03/02/21 03:25 36.6 C 89 18 113/76 94 all noted and reviewed including below Laboratory Results Laboratory Results - last 24 hr 03/01/21 03/01/21 03/01/21 13:03 16:23 21:30 POC Glucose 177 H 116 H 135 H 03/02/21 03/02/21 07:49 11:51 POC Glucose 126 H 128 H
--- NOTE | 2021-03-02 12:58 | Discharge Summary ---
Date of Service March 02, 2021 Admission HPI Per Admitting Provider This is an 80yo F with a PMH of asthma, COPD, chronic hypoxic respiratory failure on 2L NC O2, JORDAN intolerant to CPAP, DM type II, paroxysmal atrial fibrillation status post watchman procedure not anticoagulated due to history of GI bleeding, chronic diastolic CHF, GIST tumor under surveillance and other problems listed below who presents the ED with dyspnea on exertion over the past 3 days. Has been unable to even do household tasks without becoming extremely short of breath on her baseline 2 L nasal cannula oxygen. Endorsing orthopnea and PND, requiring her to sit upright last night when sleeping. Denies fever, chills. Dry cough. No wheezing but chest feels tight and she is having "difficulty moving air". Denies headache, lightheadedness, recent known sick contacts, nausea, vomiting, abdominal pain, dysuria, diarrhea or constipation. Was admitted to [facility] in November 2020 for A. fib with RVR by labor conciliator Dr. Meza in [place]. Was also found to have acute decompensated CHF. Echo performed at that time with estimated EF: 35-40%, mild aortic stenosis, MV with mild stenosis and moderate regurgitation, borderline pulmonary hypertension with estimated pulmonary artery systolic pressure is 44 mmHg, grade 1 diastolic dysfunction and dilated IVC consistent with increased right atrial pressure. Underwent cardiac catheterization at this time that did not show significant blockage. New medications started include Coreg 3.125 mg twice daily and lisinopril 2.5 mg daily. Was discharged on Lasix PO 80mg BID at that time that has been decreased most recently by Dr. Meza to Lasix 40mg daily within the past few weeks. Diltiazem also decreased to 120mg daily. Also underwent recent medication change with management technician, having to discontinue Incruse Ellipta. Instructed to start Spiriva but has not filled prescription yet. Taking other inhalers as scheduled. Admission Exam Per Admitting Provider Physical Exam: General Appearance: WD/WN, vitals as above, sitting up in bed, pleasant, obese, conversational dyspnea Head: normocephalic, atraumatic Eyes: normal inspection, PERRL, conjunctivae normal, anicteric sclerae ENT: external ear and nose normal, oropharynx normal Neck: normal visual inspection, trachea midline, no thyromegaly Respiratory: increased respiratory effort, poor air movement throughout lungfields. No wheeze, rales, rhonchi. No accessory muscle use Cardiovascular: irregular rate & rhythm, no murmur appreciated, normal peripheral pulses, 1+ BLE edema. Vessels: + JVD Chest: normal inspection of chest Abdomen/GI: normal bowel sounds, soft, nontender, no hepatosplenomegaly Extremities/Musculoskeletal: no cyanosis or clubbing, extremities motor strength 5/5 Neurologic: PERRL, EOMI, accommodation nl, no face palsy, no dysarthria, CN's II-XI intact bilaterally and moves all extremities Psychiatric: A+Ox3, euthymic affect Skin: no rashes, normal color, warm/dry Principal Diagnosis ACUTE ON CHRONIC SYSTOLIC HEART FAILURE Discharge Exam General- oriented x 3, not in distress, speaks in sentences with no effort or accessory muscle use Eyes- anicteric Neck- no JVD Lungs- clear BS BL Heart- normal rate, regular rhythm; no murmurs Abdomen- normal BS, nondistended, soft, nontender Extremities- no pretibial edema, no calf tenderness Neuro- alert, oriented x 3; no gross focal neurologic deficits Skin- warm & dry Discharge Data Allergies Allergy/AdvReac Type Severity Reaction Status Date / Time salmon oil Allergy Severe HIVES-REDDENED Verified 09/11/20 12:59 ALL OVER Iodinated Contrast Media Allergy Intermediate HIVES-GI Verified 09/11/20 12:59 SYMPTOMS lisinopril Allergy Intermediate FAST HEART Verified 09/11/20 12:59 BEAT valsartan Allergy Intermediate FAST HEART Verified 09/11/20 12:59 BEAT bupropion AdvReac Mild GI SYMPTOMS Verified 09/11/20 12:59 enalapril AdvReac Mild GI SYMPTOMS Verified 09/11/20 12:59 escitalopram AdvReac Mild GI SYMPTOMS Verified 09/11/20 12:59 metoprolol AdvReac Mild LOWERS Verified 09/11/20 12:59 PULSE RATE verapamil AdvReac Mild GI UPSET, Verified 09/11/20 12:59 fast heart rate Consultations 02/24/21 17:50 ED Decision to Admit Stat 02/24/21 20:18 Consult Cardiology Routine Consult Health Information Management Stat Hospital Course (1) Acute decompensated heart failure: Chronic Hypoxic Respiratory Failure per Dr. Dela Cruz's notes: Orthopnea, PND, dyspnea on exertion for 3 days in setting of recent medication change of decreasing Lasix dose now 40mg daily Was admitted to [facility] and found to have acute decompensated CHF TTE performed at that time with estimated EF: 35-40%, mild , mild MS, mod MR, borderline pulm HTN with est pulmonary artery systolic pressure is 44 mmHg, grade 1 diastolic dysfunction Started on Coreg 3.125 mg twice daily and lisinopril 2.5 mg daily at that time Acute on chronic systolic heart failure Banquet Waiter/Waitress Dr. Lopez consulted given 40mg IV lasix BID --> changed to lasix 80mg AM and 40mg PM and monitor, Spironolactone 12.5mg daily was added now euvolemic patient noted to have episodes of tachycardia Diltiazem was discontinued and Coreg was increased to 6.25mg BID Digoxin 125mcg po daily added as well HR improved clinically better discharge meds: Lasix 80mg in AM, 40mg at PM Aldactone 12.5mg po daily Coreg 6.25mg BID Digoxin 125mg daily ff up with Banquet Waiter/Waitress in 2 weeks (2) COPD (chronic obstructive pulmonary disease): (3) Asthma: Chronic Hypoxic Respiratory Failure Mild COPD exacerbation per Dr. Dela Cruz's notes: ABG findings show chronic respiratory acidosis with compensation - pH 7.4, pCO2 58, HCO3 35 Was managed with nebs and prednisone Stable now Discontinued prednisone Currently at baseline home oxygen 2l/min (4) JORDAN (obstructive sleep apnea): per Dr. Dela Cruz's notes: Diagnosed with JORDAN in the past but has not trialed CPAP -uses 4 L nasal cannula at bedtime Did not tolerated CPAP HS due to comfort Will need outpatient sleep study upon discharge (5) Diabetes mellitus, type 2: continue home medications (6) Paroxysmal atrial fibrillation: EKG showing a atrial fibrillation with heart rate of 87 p.m. Not on anticoagulation due to history of GI bleeding management per #1 DVT Ppx: SCDs Code status: FULL PT/OT evaluation: recommend return home Disposition: d/c home ff up with PCP in 1 week, Banquet Waiter/Waitress Dr. Lopez in 2 weeks plan of care discussed with patient in detail and at length all questions answered she is understanding, agreeable, comfortable with the plan of care Total Time Total Time Spent Total Time Spent (In Minutes): 50 minutes Discharge Plan Discharge Items Patient Disposition: Home - Home Health Services Reason For Visit: SOB Discharge Diagnosis: ACUTE CONGESTIVE HEART FAILURE Activity: Resume your previous activity Activity Comment: GRADUALLY TOLERATED Lifting: Wait until after follow-up appointment Exercise/Sports: Wait until after follow-up appointment Driving/Machine Use: NO DRIVING UNTIL RE-EVALUATED AND ALLOWED BY PRIMARY CARE PHYSICIAN Non-emergency contact: Primary Care Provider Call non-emergency contact if: you have any medication questions, your symptoms worsen, your pain is not controlled and you have a fever Follow-up/Referrals: Hammad Lopez DO [Banquet Waiter/Waitress] - Marcela Pinto MD [Primary Care Provider] - (Date & Time 03/05/2021 8:20 AM Provider David Duke PA-C Department General Internal Medicine [facility] ) Diet: Carb Consistent or DM2 and Heart Healthy Addtl Attending Provider Instructions: PLEASE REVIEW YOUR NEW MEDICATION LIST AND FOLLOW INSTRUCTIONS CAREFULLY. FOLLOW UP WITH PRIMARY CARE PHYSICIAN NEXT WEEK OUTLINED ABOVE. FOLLOW UP WITH [facility] PA[facility] INTERIOR FINISH IN 2 WEEKS. Call your Primary Care doctor if any of the following symptoms or problems start or get worse: Shortness of breath or difficulty breathing Wake up at night short of breath Chest pain Cough Swelling of your hands, feet, or legs More fatigued or tired with your normal activity Palpitations - sudden fast heart beats WEIGHT Weigh yourself every morning after using the bathroom. Use the same scale. Wear the same amount of clothing. Write your weight down on a chart. Call your Primary Care doctor if you gain more than 2-3 pounds in 1-2 days. MEDICATIONS Use this discharge instruction sheet for medication instructions. Take your medications at the time your doctor ordered. Do not skip a dose of your medicines. If you miss a dose of medicine, take it as soon as possible, but DO NOT DOUBLE A DOSE. Read your medicine information when you get home. Know all of the side effects of your medicine. If in doubt, ask your pharmacist Call your Primary Care doctor's office if you have any side effects. Be sure all of your doctors know what medicine and herbs you take (including cold, flu, and herbal medicine). Take the following with you to your follow-up doctor appointments: Weight Chart Medication List List of questions Do not drink excessive alcohol, beer or wine. Who to Call and When: Call 911 or go to the Emergency Room if: If at any time you feel your situation is an emergency You have tightness or pain in your chest that does not go away with rest or Nitroglycerin You are very short of breath even with rest. Pending Studies at Discharge: No Stand-Alone Forms: My [facility], Smoking Cessation Medications and DC Order Prescriptions: New carvedilol 6.25 mg Tablet 6.25 mg PO BID Qty: 60 RF: 2 spironolactone 25 mg Tablet 12.5 mg PO DAILY Qty: 30 RF: 2 digoxin [Digitek] 125 mcg (0.125 mg) Tablet 0.125 mg PO DAILY Qty: 30 RF: 2 furosemide 80 mg Tablet 80 mg PO QAM Qty: 30 RF: 0 Continued albuterol sulfate [Ventolin HFA] 90 mcg/actuation HFA aerosol inhaler 2 puff INHALATION QID PRN (Reason: Shortness Of Breath) Qty: 6.7 RF: 6 aspirin [Aspirin Low Dose] 81 mg tablet,delayed release (DR/EC) 81 mg PO DAILY RF: 0 lisinopril 2.5 mg tablet 2.5 mg PO DAILY RF: 0 Spiriva Respimat 2.5 mcg/actuation mist 2 puff inhalation DAILY Qty: 1 RF: 11 multivitamin Tablet 1 tab PO QAM RF: 0 promethazine 25 mg Tablet 25 mg PO Q6H PRN (Reason: nausea and vomiting) Qty: 60 RF: 0 dicyclomine 20 mg Tablet 20 mg PO BID 30 Days Qty: 60 RF: 0 atorvastatin 40 mg Tablet 40 mg PO HS RF: 0 docusate sodium 100 mg Capsule 100 mg PO QAM RF: 0 omeprazole 20 mg Capsule,Delayed Release(Dr/Ec) 20 mg PO BID RF: 0 cholecalciferol (vitamin D3) [Vitamin D3] 1,000 unit Capsule 1,000 unit PO QAM RF: 0 ferrous sulfate [iron] 325 mg (65 mg iron) tablet 325 mg PO QAM RF: 0 glimepiride 4 mg tablet 2 mg PO QAM RF: 0 zafirlukast 20 mg tablet 20 mg PO QAM RF: 0 albuterol sulfate 2.5 mg /3 mL (0.083 %) Solution For Nebulization 2.5 mg INHALATION BID PRN (Reason: .WORSENING ASTHMA) RF: 0 brinzolamide [Azopt] 1 % Drops,Suspension 1 drp OPB BID RF: 0 Lumigan 0.01 % drops 1 drp OPB HS RF: 0 polyethylene glycol 3350 [Miralax] 17 gram/dose Powder 17 g PO BID PRN (Reason: Constipation) RF: 0 potassium chloride [Klor-Con M20] 20 mEq tablet,ER particles/crystals 10 meq PO QAM RF: 0 hydrocodone-acetaminophen 5-325 mg Tablet 1 tab PO Q6H PRN (Reason: Pain) RF: 0 Probiotic 3 billion cell Capsule 3,000 mmu cells PO QAM RF: 0 diltiazem HCl 120 mg capsule,extended release 24hr 120 mg PO DAILY RF: 0 fluticasone propion-salmeterol [Advair Diskus] 250-50 mcg/dose blister with device 1 inh INHALATION BID RF: 0 furosemide 40 mg tablet 40 mg PO DAILY Qty: 30 RF: 0 Discontinued carvedilol [Coreg] 3.125 mg tablet 3.125 mg PO BID RF: 0 Discharge Orders: Discharge Order (Routine); Ordered 03/02/21 Ordered By: Carlos Car/Other Patient Handouts: Managing Type 2 Diabetes, Managing Diabetes: The A1C Test Admission Data Admit Date/Time: 02/24/21 18:08 Attending Provider: Carlos Gould Admit Provider: Areli Dela Cruz I. Primary Care Provider: Marcela Pinto Other Providers: Areli Dela Cruz I. ; Hammad Lopez
== END 2021-03-02 14:51 | disposition home health service (06) | DRG 291 ==
LOC: ED 14:40 → SUATTDRO 18:08 → 2N 18:08

== ENCOUNTER 2021-04-09 20:24 | Inpatient (IN) ==
[2021-04-09 21:07] LABS: Basophils # (auto) 0.01 K/uL (0-0.2); Basophils % (auto) 0.1 %; Eosinophils # (auto) 0.37 K/uL (0-0.5); Eosinophils % (auto) 2.6 %; Hemoglobin 12.6 g/dL (12.0-16.0); Immature Granulocytes # (auto) 0.09 K/uL (0.00-0.02); Immature Granulocytes % (auto) 0.6 %; Lymphocytes # (auto) 2.59 K/uL (1.2-3.4); Lymphocytes % (auto) 18.4 %; Mean Corpuscular Hemoglobin 28.9 pg (25-34); Mean Corpuscular Hgb Conc 32.3 g/dL (32-36); Mean Corpuscular Volume 89.4 fL (80-100); Mean Platelet Volume 9.5 fL (7.4-10.4); Monocytes # (auto) 1.16 K/uL (0.11-0.59); Monocytes % (auto) 8.2 %; Neutrophils # (auto) 9.85 K/uL (1.4-6.5); Neutrophils % (auto) 70.1 %; Platelet Count 407 K/uL (130-400); RDW Coefficient of Variation 13.9 % (11.5-14.5); RDW Standard Deviation 45.9 fL (36.4-46.3); Red Blood Count 4.36 M/uL (4.2-5.4); White Blood Count 14.07 K/uL (4.8-10.8)
[2021-04-09 21:19] LABS: Albumin Level 3.2 gm/dl (3.4-5.0); Aspartate Aminotransferase 11 U/L (15-37); BUN Creatinine Ratio 12.6 (10-20); Blood Urea Nitrogen 18 mg/dl (7-18); Calcium 9.1 mg/dl (8.5-10.1); Carbon Dioxide 29 mmol/L (21-32); Chloride 93 mmol/L (98-107); Est GFR (African American) 38.8 ml/min; Est GFR (Non-African American) 33.5 ml/min; Glucose 184 mg/dl (70-99); Potassium 4.8 mmol/L (3.5-5.1); Sodium 127 mmol/L (136-145)
[2021-04-09 21:24] LABS: Alanine Aminotransferase 12 U/L (12-78); Albumin Globulin Ratio 0.7 (0.9-2); Alkaline Phosphatase 132 U/L (45-117); Bilirubin,Total 0.3 mg/dl (0.2-1); Globulin 4.7 gm/dl (2.5-4.0); Total Protein 7.9 gm/dl (6.4-8.2); Troponin I < 0.015 ng/ml (0-0.045)
[2021-04-09] MEDS ORDERED: methylPREDNISolone 125 MG/2 ML VIAL IV STA (22:07)
[2021-04-09] MEDS ORDERED: ALBUT/IPRATROP 3MG/0.5MG NEB 3 ML VIAL NEB STA (22:07)
[2021-04-09] MEDS ORDERED: ONDANSETRON INJ 2 MG/ML 2 ML VIAL IV STA (22:07)
--- NOTE | 2021-04-09 22:16 | Emergency Department Note ---
History of Present Illness General Chief complaint: Shortness of Breath/Dyspnea Stated complaint: SHORTNESS OF BREATHE, ABDOMINAL PAIN Time Seen by Provider: 04/09/21 22:00 Source: patient History of Present Illness Provider complaint: Shortness of breath Onset (ago): day(s) Location: chest Severity: moderate Pain Consistency: + constant Maximum Pain Intensity: 5 Quality: + other (Short of breath) Relieved By: + none Associated symptoms: + nausea/vomiting (Nausea no vomiting); no chest pain, no cough and no fever/chills This is a 80-year-old female with history of COPD and CHF presenting with worse genet shortness of breath since yesterday. She states that any slight exertion makes her shortness of breath worse. She states walking across the room makes her short of breath. She does use oxygen on a regular basis 2 L that during the day and 4 L at night. She has not required more oxygen since this started. She has had no associated fever, cough or cold symptoms, chest pain, belly pain, vom iting or diarrhea. She has had no leg swelling or pain. She does state that she is currently on Bactrim for a UTI. She does feel nauseated. Home Medications Medication Instructions Recorded Confirmed Type atorvastatin 40 mg PO HS 06/23/19 04/09/21 History cholecalciferol (vitamin D3) 1,000 unit PO QAM 06/23/19 04/09/21 History [Vitamin D3] docusate sodium 100 mg PO QAM 06/23/19 04/09/21 History omeprazole 20 mg PO BID 06/23/19 04/09/21 History Lumigan 1 drp OPB HS 09/25/19 04/09/21 History albuterol sulfate 2.5 mg INHALATION BID PRN 09/25/19 04/09/21 History brinzolamide [Azopt] 1 drp OPB BID 09/25/19 04/09/21 History polyethylene glycol 3350 [Miralax] 17 g PO BID PRN 09/25/19 04/09/21 History ferrous sulfate 325 mg (65 mg 325 mg PO QAM tab 02/23/20 04/09/21 History iron) tablet glimepiride 4 mg tablet 2 mg PO QAM tab 02/23/20 04/09/21 History multivitamin 1 tab PO QAM 06/02/20 04/09/21 History dicyclomine 20 mg PO BID 30 Days #60 tab 06/16/20 04/09/21 Rx promethazine 25 mg PO Q6H PRN #60 tab 06/16/20 04/09/21 Rx Probiotic 3,000 mmu cells PO QAM 07/28/20 04/09/21 History hydrocodone-acetaminophen 1 tab PO Q6H PRN 07/28/20 04/09/21 History zafirlukast 20 mg tablet 20 mg PO QAM 09/11/20 04/09/21 History albuterol sulfate 90 mcg/actuation 2 puff INHALATION QID PRN #6.7 g 10/30/20 04/09/21 Rx aerosol inhaler aspirin 81 mg tablet,delayed 81 mg PO DAILY 02/05/21 04/09/21 History release lisinopril 2.5 mg tablet 2.5 mg PO DAILY 02/05/21 04/09/21 History carvedilol 6.25 mg PO BID #60 tab 03/02/21 04/09/21 Rx furosemide 80 mg PO QAM #30 tab 03/02/21 04/09/21 Rx spironolactone 12.5 mg PO DAILY #30 tab 03/02/21 04/09/21 Rx methimazole 10 mg tablet 10 mg PO DAILY 03/07/21 04/09/21 History digoxin [Digitek] 0.125 mg PO 4XWK 04/09/21 04/09/21 History fluticasone propion-salmeterol 2 puff INHALATION BID 04/09/21 04/09/21 History [Advair HFA] furosemide 40 mg PO QPM 04/09/21 04/09/21 History ipratropium-albuterol [Combivent 1 puff INHALATION QID 04/09/21 04/09/21 History Respimat] potassium chloride [Klor-Con M20] 20 meq PO DAILY 04/09/21 04/09/21 History sulfamethoxazole-trimethoprim 1 tab PO DAILY 04/09/21 04/09/21 History Allergies Allergy/AdvReac Type Severity Reaction Status Date / Time salmon oil Allergy Severe HIVES-REDDENED Verified 04/09/21 23:01 ALL OVER Iodinated Contrast Media Allergy Intermediate HIVES-GI Verified 04/09/21 23:01 SYMPTOMS valsartan Allergy Intermediate FAST HEART Verified 04/09/21 23:01 BEAT bupropion AdvReac Mild GI SYMPTOMS Verified 04/09/21 23:01 enalapril AdvReac Mild GI SYMPTOMS Verified 04/09/21 23:01 escitalopram AdvReac Mild GI SYMPTOMS Verified 04/09/21 23:01 metoprolol AdvReac Mild LOWERS Verified 04/09/21 23:01 PULSE RATE verapamil AdvReac Mild GI UPSET, Verified 04/09/21 23:01 fast heart rate Past Med/Surg History Medical History Acute blood loss anemia Acute decompensated heart failure Acute on chronic 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 Acute on chronic respiratory failure with hypoxia and hypercapnia Aortic valve stenosis, mild Asthma Chronic diastolic CHF (congestive heart failure) Chronic respiratory failure with hypoxia and hypercapnia COPD (chronic obstructive pulmonary disease) Diabetes mellitus, type 2 Diverticulitis Esophageal reflux Glaucoma of both eyes Hyperlipidemia Hypertension Lower GI bleed On home oxygen therapy 2L N/C at all times and 4 L N/C at night Sleep apnea Subclinical hyperthyroidism Subepithelial mass of stomach Surgical History H/O colonoscopy "04/2014 - diverticular disease throughout colon, internal hemorrhoids, polyp removed" History of appendectomy History of cardiac cath "YEARS AGO"NO BLOCKAGES/NO STENTS-F/U DR THOMSON History of cholecystectomy History of dilatation and curettage History of esophagogastroduodenoscopy (EGD) "04/2014 - normal" History of incisional hernia repair History of tooth extraction all teeth Hx of small bowel obstruction "11/2017 - Seen [facility] - surgical intervention" Nausea and vomiting after administration of anesthetic agent Presence of Watchman left atrial appendage closure device 11/2019 @ [facility] Dr. 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 and A total of 10 systems reviewed and were otherwise negative Physical Exam Vital Signs Vital Signs - 24 hr 04/09/21 20:26 04/09/21 20:51 04/09/21 21:26 Temperature 36.6 C Temperature Source Temporal Artery Scan Pulse Rate 79 Pulse Rate [Apical] Pulse Rate from SpO2 Sensor 78 Pulse Rhythm Respiratory Rate 16 17 Respiratory Effort / Characteristics Non-Labored Non-Labored Respiratory Depth Normal Normal Respiratory Pattern Regular Regular Blood Pressure 111/73 110/86 Blood Pressure Mean 85 94 Blood Pressure Position Sitting Pulse Oximetry 100 97 Oxygen Delivery Method Nasal Cannula Nasal Cannula Oxygen Flow Rate 2 Sepsis Recent Fever Within 48 Hours No Sepsis New/Unexplained Change in Mental Status N/A Sepsis Action Taken by Nursing No Action Required 04/09/21 21:30 04/09/21 21:57 04/09/21 22:33 Temperature Temperature Source Pulse Rate 75 75 Pulse Rate [Apical] 80 Pulse Rate from SpO2 Sensor 64 Pulse Rhythm Regular Respiratory Rate 22 18 20 Respiratory Effort / Characteristics Spontaneous Short of Breath Respiratory Depth Respiratory Pattern Blood Pressure 120/82 Blood Pressure Mean 94 Blood Pressure Position Pulse Oximetry 97 98 96 Oxygen Delivery Method Nasal Cannula Nasal Cannula Nasal Cannula Oxygen Flow Rate 2 2 2.5 Sepsis Recent Fever Within 48 Hours Sepsis New/Unexplained Change in Mental Status Sepsis Action Taken by Nursing 04/09/21 23:41 Temperature Temperature Source Pulse Rate 78 Pulse Rate [Apical] Pulse Rate from SpO2 Sensor 74 Pulse Rhythm Respiratory Rate 21 Respiratory Effort / Characteristics Respiratory Depth Respiratory Pattern Blood Pressure 114/79 Blood Pressure Mean 90 Blood Pressure Position Pulse Oximetry 96 Oxygen Delivery Method Nasal Cannula Oxygen Flow Rate 2 Sepsis Recent Fever Within 48 Hours Sepsis New/Unexplained Change in Mental Status Sepsis Action Taken by Nursing Constitutional: Vital signs reviewed. Eyes: Pupils are equal round reactive to light. Conjunctiva are noninjected. ENT: Pharynx is clear without erythema or exudate. Mucous membranes are moist. Neck supple without meningeal signs. Respiratory: Fair air entry bilaterally with scattered expiratory wheezing. Breath sounds are equal bilaterally. Cardiovascular: Irregularly irregular rhythm. Normal rate. GI: Soft, nondistended and nontender. Bowel sounds are present. Musculoskeletal: No peripheral edema. No lower extremity tenderness. Integumentary: No cyanosis. or jaundice. Neurological: The patient is awake and alert. No focal deficits. Psychiatric: Normal affect. Not anxious appearing. Course Administered Medications Discontinued Medications Albuterol (Albut/Ipratrop 3mg/0.5mg Neb 3 Ml Vial) 3 ml NEB NOW STA Stop: 04/09/21 22:08 Last Admin: 04/09/21 22:35 Dose: 3 ml Documented by: [id number] Methylprednisolone (Methylprednisolone 125 Mg/2 Ml Vial) 125 mg IV NOW STA Stop: 04/09/21 22:08 Last Admin: 04/09/21 22:24 Dose: 125 mg Documented by: [id number] Ondansetron HCl (Ondansetron Inj 2 Mg/Ml 2 Ml Vial) 4 mg IV NOW STA Stop: 04/09/21 22:08 Last Admin: 04/09/21 22:25 Dose: 4 mg Documented by: [id number] Medical Decision Making Differential Diagnosis COPD exacerbation, CHF exacerbation, anemia, cardiac, pyelonephritis, metabolic derangement Medical Records Attestation: I reviewed the patient's medical records. I did perform a limited focused review of portions of the patient's old chart on the electronic medical record. The patient was admitted to the hospital last month for a CHF exacerbation. Home Medications Current Medication List: was personally reviewed by me Laboratory Data Attestation: I reviewed the patient's lab results. Result diagrams: 04/09/21 20:54 04/09/21 20:54 Lab Results 04/09/21 04/09/21 04/09/21 Range/Units 20:54 20:54 22:23 WBC 14.07 H (4.8-10.8) K/uL RBC 4.36 (4.2-5.4) M/uL Hgb 12.6 (12.0-16.0) g/dL Hct 39.0 (37-47) % MCV 89.4 (80-100) fL MCH 28.9 (25-34) pg MCHC 32.3 (32-36) g/dL RDW Std Deviation 45.9 (36.4-46.3) fL RDW Coeff of Jesika 13.9 (11.5-14.5) % Plt Count 407 H (130-400) K/uL MPV 9.5 (7.4-10.4) fL Immature Gran % (Auto) 0.6 % Neut % (Auto) 70.1 % Lymph % (Auto) 18.4 % Clark % (Auto) 8.2 % Eos % (Auto) 2.6 % Baso % (Auto) 0.1 % Neut # (Auto) 9.85 H (1.4-6.5) K/uL Lymph # (Auto) 2.59 (1.2-3.4) K/uL Clark # (Auto) 1.16 H (0.11-0.59) K/uL Eos # (Auto) 0.37 (0-0.5) K/uL Baso # (Auto) 0.01 (0-0.2) K/uL Immature Gran # (Auto) 0.09 H (0.00-0.02) K/uL Sodium 127 L (136-145) mmol/L Potassium 4.8 (3.5-5.1) mmol/L Chloride 93 L (98-107) mmol/L Carbon Dioxide 29 (21-32) mmol/L Anion Gap 5.0 (3-11) BUN 18 (7-18) mg/dl Creatinine 1.45 H (0.6-1.2) mg/dl Est Cr Clr Drug Dosing Not Reportable Est GFR ( Amer) 38.8 ml/min Est GFR (Non-Af Amer) 33.5 ml/min BUN/Creatinine Ratio 12.6 (10-20) Glucose 184 H (70-99) mg/dl Calcium 9.1 (8.5-10.1) mg/dl Total Bilirubin 0.3 (0.2-1) mg/dl AST 11 L (15-37) U/L ALT 12 (12-78) U/L Alkaline Phosphatase 132 H (45-117) U/L Troponin I < 0.015 (0-0.045) ng/ml Total Protein 7.9 (6.4-8.2) gm/dl Albumin 3.2 L (3.4-5.0) gm/dl Globulin 4.7 H (2.5-4.0) gm/dl Albumin/Globulin Ratio 0.7 L (0.9-2) COVID-19 Eval Order Covid19 at [facility] SARS-CoV-2 (PCR) (Negative) 04/09/21 Range/Units 22:23 WBC (4.8-10.8) K/uL RBC (4.2-5.4) M/uL Hgb (12.0-16.0) g/dL Hct (37-47) % MCV (80-100) fL MCH (25-34) pg MCHC (32-36) g/dL RDW Std Deviation (36.4-46.3) fL RDW Coeff of Jesika (11.5-14.5) % Plt Count (130-400) K/uL MPV (7.4-10.4) fL Immature Gran % (Auto) % Neut % (Auto) % Lymph % (Auto) % Clark % (Auto) % Eos % (Auto) % Baso % (Auto) % Neut # (Auto) (1.4-6.5) K/uL Lymph # (Auto) (1.2-3.4) K/uL Clark # (Auto) (0.11-0.59) K/uL Eos # (Auto) (0-0.5) K/uL Baso # (Auto) (0-0.2) K/uL Immature Gran # (Auto) (0.00-0.02) K/uL Sodium (136-145) mmol/L Potassium (3.5-5.1) mmol/L Chloride (98-107) mmol/L Carbon Dioxide (21-32) mmol/L Anion Gap (3-11) BUN (7-18) mg/dl Creatinine (0.6-1.2) mg/dl Est Cr Clr Drug Dosing Est GFR ( Amer) ml/min Est GFR (Non-Af Amer) ml/min BUN/Creatinine Ratio (10-20) Glucose (70-99) mg/dl Calcium (8.5-10.1) mg/dl Total Bilirubin (0.2-1) mg/dl AST (15-37) U/L ALT (12-78) U/L Alkaline Phosphatase (45-117) U/L Troponin I (0-0.045) ng/ml Total Protein (6.4-8.2) gm/dl Albumin (3.4-5.0) gm/dl Globulin (2.5-4.0) gm/dl Albumin/Globulin Ratio (0.9-2) COVID-19 Eval Order SARS-CoV-2 (PCR) NEGATIVE (Negative) Imaging Data Attestation: I personally reviewed and interpreted this imaging study as follows: My Impression: Chest x-ray per my interpretation shows no acute cardiopulmonary process. There is no change from her x-ray from February. ECG Data Attestation: I personally reviewed and interpreted this ECG as follows: Indication: + SOB/dyspnea Rate (beats per minute): 87 Rhythm: + atrial fibrillation ECG ST segments: no ST elevation ECG Findings: + PVCs MDM Narrative I did evaluate the patient as noted above. She is presenting with worsening shortness of breath since yesterday. She denies any cough or cold symptoms. She is on Bactrim for UTI and states that she has been eating less but drinking fluids. On exam she has tight with some wheezing. I did treat her with a DuoNeb. IV access was established. I did treat her with Solu-Medrol and Zofran IV. I did place an order for continuous cardiac monitoring. The monitor showed atrial fibrillation with a heart rate of 75. I did order and personally review the patient's 12-lead EKG as described above. She has atrial fibrillation. No acute ischemia is noted. I did order and personally reviewed the images of the patient's chest x-ray as described above. Chest x-ray shows some atelectasis at the left base. This is unchanged from her prior x-ray. I did order and review the patient's blood work as noted in the electronic medical record. Her white count is elevated at 14,000. Platelet count is 407. Sodium is 127 which is new for her. Her creatinine is elevated at 1.45 compared to 0.8 previously. Her troponin is negative.I did discuss the case with the hospitalist and manager rn case for further care and evaluation. Covid testing was negative. Impression & Plan Acute exacerbation of chronic obstructive airways disease, JOSE DAVID (acute kidney injury), Hyponatremia Discharge Plan Visit Data Chief Complaint: Shortness of Breath/Dyspnea Stated Complaint: SHORTNESS OF BREATHE, ABDOMINAL PAIN ED Provider: Hammad Peacock Discharge Problem: Acute exacerbation of chronic obstructive airways disease, JOSE DAVID (acute kidney injury), Hyponatremia Patient Disposition: Being Evaluated by Hospitalist Forms Stand Alone Forms: My [facility] Prescriptions Prescriptions: No Action albuterol sulfate [Ventolin HFA] 90 mcg/actuation HFA aerosol inhaler 2 puff INHALATION QID PRN (Reason: Shortness Of Breath) Qty: 6.7 RF: 6 methimazole 10 mg tablet 10 mg PO DAILY RF: 0 aspirin [Aspirin Low Dose] 81 mg tablet,delayed release (DR/EC) 81 mg PO DAILY RF: 0 lisinopril 2.5 mg tablet 2.5 mg PO DAILY RF: 0 multivitamin Tablet 1 tab PO QAM RF: 0 promethazine 25 mg Tablet 25 mg PO Q6H PRN (Reason: nausea and vomiting) Qty: 60 RF: 0 dicyclomine 20 mg Tablet 20 mg PO BID 30 Days Qty: 60 RF: 0 atorvastatin 40 mg Tablet 40 mg PO HS RF: 0 docusate sodium 100 mg Capsule 100 mg PO QAM RF: 0 omeprazole 20 mg Capsule,Delayed Release(Dr/Ec) 20 mg PO BID RF: 0 cholecalciferol (vitamin D3) [Vitamin D3] 1,000 unit Capsule 1,000 unit PO QAM RF: 0 ferrous sulfate [iron] 325 mg (65 mg iron) tablet 325 mg PO QAM RF: 0 glimepiride 4 mg tablet 2 mg PO QAM RF: 0 zafirlukast 20 mg tablet 20 mg PO QAM RF: 0 albuterol sulfate 2.5 mg /3 mL (0.083 %) Solution For Nebulization 2.5 mg INHALATION BID PRN (Reason: .WORSENING ASTHMA) RF: 0 brinzolamide [Azopt] 1 % Drops,Suspension 1 drp OPB BID RF: 0 Lumigan 0.01 % drops 1 drp OPB HS RF: 0 polyethylene glycol 3350 [Miralax] 17 gram/dose Powder 17 g PO BID PRN (Reason: Constipation) RF: 0 hydrocodone-acetaminophen 5-325 mg Tablet 1 tab PO Q6H PRN (Reason: Pain) RF: 0 Probiotic 3 billion cell Capsule 3,000 mmu cells PO QAM RF: 0 carvedilol 6.25 mg Tablet 6.25 mg PO BID Qty: 60 RF: 2 spironolactone 25 mg Tablet 12.5 mg PO DAILY Qty: 30 RF: 2 furosemide 80 mg Tablet 80 mg PO QAM Qty: 30 RF: 0 sulfamethoxazole-trimethoprim 800-160 mg tablet 1 tab PO DAILY RF: 0 Advair HFA 230-21 mcg/actuation HFA aerosol inhaler 2 puff INHALATION BID RF: 0 digoxin [Digitek] 125 mcg (0.125 mg) tablet 0.125 mg PO 4XWK RF: 0 furosemide 40 mg tablet 40 mg PO QPM RF: 0 potassium chloride [Klor-Con M20] 20 mEq tablet,ER particles/crystals 20 meq PO DAILY RF: 0 Combivent Respimat 20-100 mcg/actuation mist 1 puff INHALATION QID RF: 0 Referrals Referrals: Marcela Pinto MD [Primary Care Provider] -
[2021-04-10] MEDS ORDERED: ACETAMINOPHEN 325 MG TAB PO PRN (02:45)
[2021-04-10] MEDS ORDERED: SODIUM CHLORIDE 0.9% 500 ML IV SCH (02:45)
[2021-04-10] MEDS ORDERED: NITROGLYCERIN SL 0.4 MG/TAB TAB SL PRN (02:45)
[2021-04-10] MEDS ORDERED: ALBUTEROL HFA 8 GM INHALER INH PRN (02:45)
[2021-04-10] MEDS ORDERED: ALBUTEROL 0.083% NEBU SOLN 3 ML VIAL INH PRN (02:45)
[2021-04-10] MEDS ORDERED: POLYETHYLENE (MIRALAX) 17 GM PACK PO PRN (02:45)
[2021-04-10] MEDS ORDERED: ERTAPENEM CONSULT ACTIVE PRN (03:23)
[2021-04-10] MEDS: HYDROCODONE/ACETAMOPHEN 5/325MG TAB PO PRN ×3 (03:29→17:42)
[2021-04-10] MEDS ORDERED: DEXTROSE 50% 50 ML SYRINGE IV PRN (03:45)
[2021-04-10] MEDS ORDERED: GLUCOSE 40% GEL 15 GM TUBE PO PRN (03:45)
[2021-04-10] MEDS ORDERED: GLUCOSE 10 TABS/TUBE PO PRN (03:45)
[2021-04-10] MEDS ORDERED: GLUCAGON FOR INJ 1 MG VIAL IM PRN (03:45)
[2021-04-10] MEDS ORDERED: CARBOHYDRATES FOR HYPOGLYCEMIA PO PRN (03:45)
--- NOTE | 2021-04-10 04:33 | History and Physical Report ---
DATE OF ADMISSION: 04/10/2021. CHIEF COMPLAINT: Shortness of breath, abdominal discomfort. HISTORY OF PRESENT ILLNESS: An 80-year-old female with a past medical history significant for type 2 diabetes, chronic respiratory failure, on oxygen 2 liters in the morning and 4 liters at nighttime, hyperlipidemia, history of hypercalcemia, history of asthma, COPD, allergic rhinitis, nocturnal hypoxia, sleep apnea, but could not tolerate CPAP, but now on nocturnal oxygen, chronic systolic CHF, last echo with EF of 40% to 45%, pulmonary hypertension, hypertension, paroxysmal atrial fibrillation, irritable bowel syndrome, history of ischemic colitis, morbid obesity, GERD, generalized osteoarthritis, history of elevated plasma metanephrines, generalized anxiety disorder. The patient lives alone, ambulates without any support. Daughter lives close by. Comes because of shortness of breath. The patient was recently diagnosed with UTI and started on Bactrim. Still has abdominal discomfort. The burning micturition is getting better. Denies any fever or chills. No cough, no chest pain. She is getting more short of breath, though is not requiring more than her usual oxygen. No headache, no blurred visions, no earache, no runny nose, no sore throat. Appetite is not great for the last few days. No swelling in the legs. No diarrhea or constipation. Stools are always black because of the iron tablets. No blood in the stools. No hematuria. Currently resting comfortably and hemodynamically stable. In the ER, she received steroids and nebs. She complains of also some nausea. ALLERGIES: SALMON OIL, IODINATED CONTRAST, VALSARTAN, BUPROPION, ENALAPRIL, LEXAPRO, METOPROLOL, VERAPAMIL. PAST MEDICAL HISTORY: As mentioned above. PAST SURGICAL HISTORY: Appendectomy, colonoscopies, EGDs, EGD with endoscopic ultrasound, incisional hernia repair, ligation of the oviducts, tonsillectomy, cholecystectomy, sigmoidoscopy, small bowel endoscopy, removal of foreign body. MEDICATIONS: The patient is on albuterol 2.5 mg inhalation b.i.d. p.r.n., albuterol 2 puffs inhalation q.i.d. p.r.n., aspirin 81 mg p.o. daily, atorvastatin 40 mg p.o. at bedtime, Azopt one drop ophthalmic b.i.d., Coreg 6.25 mg p.o. b.i.d., vitamin D 1000 units p.o. a.m., dicyclomine 20 mg p.o. b.i.d., digoxin 0.125 mg p.o. 4 times a week, Colace 100 mg p.o. a.m., ferrous sulfate 325 mg p.o. q.a.m., Advair HFA 2 puffs inhalation b.i.d., Lasix 80 mg in a.m. and 40 mg in p.m., glimepiride 2 mg p.o. in the a.m., hydrocodone and acetaminophen 1 tablet p.o. q. 6 hours p.r.n., Combivent 1 puff inhalation q.i.d., lisinopril 2.5 mg p.o. daily, Lumigan 1 drop ophthalmic at bedtime, methimazole 10 mg p.o. daily, multivitamin one tablet p.o. daily, omeprazole 20 mg p.o. b.i.d., MiraLax 17 g p.o. b.i.d. p.r.n., potassium chloride 20 mEq p.o. daily, probiotic 1 capsule p.o. a.m., promethazine 25 mg p.o. q. 6 hours p.r.n., spironolactone 12.5 mg p.o. daily, Bactrim 1 tablet p.o. daily, zafirlukast 20 mg p.o. a.m. FAMILY HISTORY: Significant for daughter has asthma, father has heart disease, mother has breast cancer, brother has COPD, son has obstructive sleep apnea. SOCIAL HISTORY: . Daughter lives close by. No smoking, no alcohol, no drug use. REVIEW OF SYSTEMS: As per HPI. Rest of the review of systems negative. PHYSICAL EXAMINATION: GENERAL: The patient is obese, not in acute distress. VITAL SIGNS: Temperature 36.6, pulse 78, respiratory rate 21, blood pressure 114/79, oxygen 96% on 2 liters. HEENT: Pupils equal, round and reactive. Oral mucosa moist. NECK: No JVD, no neck masses. CARDIOVASCULAR: S1 and S2 heard. Regular rate and rhythm. No murmur, no gallop. RESPIRATORY SYSTEM: Normal AP diameter. No accessory muscle use. No wheezing, no crackles. ABDOMEN: Soft, bowel sounds present, nontender, no distention. CENTRAL NERVOUS SYSTEM: Cranial nerves II-XII grossly intact, nonfocal. EXTREMITIES: No edema, no erythema. LABORATORY DATA: WBC 14, hemoglobin 12.6, hematocrit 39, platelets 407. Sodium 127, potassium 4.8, chloride 93, bicarbonate 29, BUN 18, creatinine 1.45. Serum glucose 184, calcium 9.1, total bilirubin 0.3, AST 37, ALT 12, alkaline phosphatase 132. Troponins are less than 0.015. SARS-CoV-2 PCR negative. IMAGING DATA: Chest x-ray, no acute findings. EKG: PVCs at the rate of 87. ASSESSMENT AND PLAN: This is an 80-year-old female who presents with shortness of breath and also abdominal pain. 1. Shortness of breath: History of congestive heart failure and chronic obstructive pulmonary disease. Received Solu-Medrol nebs in the ER. Currently, saturating okay on 2 liters, which she usually uses. Will monitor. Continue her home inhalers for now and nebs atc and monitor. 2. Urinary tract infection: Last Friday, she was started on Bactrim for the UTI, but cultures are showing ESBL. We will stop the Bactrim and place her on Invanz. Follow the response. Abdominal discomfort could be from the UTI. 3. Hyponatremia: Sodium of 127, probably secondary to Bactrim use. Stopping the Bactrim. Getting gentle fluids about 500 mL. Will follow the repeat labs. 4. Acute kidney injury: Baseline creatinine 0.8, presently with creatinine of 1.45. Getting gentle fluids. Stopped the Bactrim. Continue her home Lasix and lisinopril. If creatinine worsens, may need to hold diuretics and lisinopril. Will monitor the labs in the a.m. 5. History of chronic systolic congestive heart failure: EF of 40% to 45%. Continue her diuretics and Lasix 80 mg in the a.m. and 40 mg p.m. and spironolactone 12.5 mg p.o. daily and also lisinopril and Coreg and digoxin. Will monitor for volume overload. 6. History of atrial fibrillation: Continue Coreg and digoxin. Not on any anticoagulation because of history of GI bleed. 7. History of obstructive sleep apnea and uses 4 liters nasal cannula at nighttime. Could not tolerate CPAP. 8. History of chronic obstructive pulmonary disease and asthma: Continue home inhalers. 9. Hyperthyroidism: On methimazole. Follow the thyroid profile. 10. Deep venous thrombosis prophylaxis: Heparin subQ. DISPOSITION: Closely monitor in the med tele. PT/OT prior to discharge. Social service to help with discharge planning. Level I full code. Job ID: [id number] [facility]
[2021-04-10] MEDS: ERTAPENEM SODIUM 1,000 MG in SODIUM CHLORIDE 0.9% 50 ML IV SCH (04:35)
[2021-04-10] MEDS: INSULIN ASPART 100 UNITS/ML 3 ML PEN SC SCH ×5 (04:37→20:38)
[2021-04-10] MEDS ORDERED: Albuterol HFA 8 GM Inhaler (Combivent Respimat P&T Subs) INH SCH (07:00)
[2021-04-10] MEDS ORDERED: Ipratropium HFA Inhaler (Combivent Respimat P&T Subs) INH SCH (07:00)
[2021-04-10] MEDS ORDERED: XOPENEX/ATROVENT 1.25mg/0.5MG NEB COMBO NEB SCH (07:00)
[2021-04-10] MEDS: LEVALBUTEROL 1.25MG/0.5ML NEB INH SCH ×3 (07:26→19:40)
[2021-04-10] MEDS: IPRATROPIUM BROMIDE NEB SOLN 0.02% 2.5 ML VIAL INH SCH ×3 (07:26→19:39)
[2021-04-10 07:48] LABS: Basophils # (auto) 0.01 K/uL (0-0.2); Basophils % (auto) 0.1 %; Eosinophils # (auto) 0.01 K/uL (0-0.5); Eosinophils % (auto) 0.1 %; Hematocrit (blood only) 39.5 % (37-47); Hemoglobin 12.8 g/dL (12.0-16.0); Immature Granulocytes # (auto) 0.08 K/uL (0.00-0.02); Immature Granulocytes % (auto) 0.6 %; Lymphocytes # (auto) 2.22 K/uL (1.2-3.4); Lymphocytes % (auto) 16.8 %; Mean Corpuscular Hemoglobin 29.1 pg (25-34); Mean Corpuscular Hgb Conc 32.4 g/dL (32-36); Mean Corpuscular Volume 89.8 fL (80-100); Mean Platelet Volume 9.6 fL (7.4-10.4); Monocytes # (auto) 0.06 K/uL (0.11-0.59); Monocytes % (auto) 0.5 %; Neutrophils # (auto) 10.81 K/uL (1.4-6.5); Neutrophils % (auto) 81.9 %; Platelet Count 438 K/uL (130-400); RDW Coefficient of Variation 13.9 % (11.5-14.5); RDW Standard Deviation 45.9 fL (36.4-46.3); White Blood Count 13.19 K/uL (4.8-10.8)
--- NOTE | 2021-04-10 07:53 | XRay Report ---
XR chest 1V portable CLINICAL HISTORY: Dyspnea COMPARISON STUDY: Chest radiograph February 24, 2021. FINDINGS: Lung volumes are normal. There is no pneumothorax or pleural effusion. Linear left lower jcarlos ng opacities favor atelectasis or scarring. Cardiomegaly is unchanged. There is no consolidation to s uggest pneumonia. There is no evidence for pulmonary edema. IMPRESSION: No acute cardiopulmonary findings. No significant change in appearance of the chest. ACT 112: Negative or not required by law. Electronically signed by: Shadi Ravi M.D. 04/10/2021 7:51 AM
[2021-04-10] MEDS: HEPARIN SOD 5,000 UNIT/0.5 ML VIAL SQ SCH ×2 (08:11→19:34)
[2021-04-10] MEDS: FLUTICASONE/VILANTEROL 100/25MCG 14 PUFFS/INHALER INH SCH (08:12)
[2021-04-10] MEDS: PANTOprazole 40 MG TAB PO SCH ×2 (08:17→19:32)
[2021-04-10] MEDS: MULTIVITAMIN TAB PO SCH (08:17)
[2021-04-10] MEDS: methIMAzole 5 MG TABLET PO SCH (08:17)
[2021-04-10] MEDS: CHOLECALCIFEROL 1,000 UNITS 25 MCG TAB PO SCH (08:18)
[2021-04-10] MEDS: ADVANCED PROBIOTIC 1250 MG CAPSULE PO SCH (08:18)
[2021-04-10] MEDS: DOCUSATE SODIUM 100 MG CAP PO SCH (08:18)
[2021-04-10] MEDS: ASPIRIN 81 MG ECTAB PO SCH (08:18)
[2021-04-10] MEDS: FERROUS SULFATE 325 MG TAB PO SCH (08:18)
[2021-04-10] MEDS: DICYCLOMINE HCL 20 MG TAB PO SCH ×2 (08:18→19:32)
[2021-04-10] MEDS: BRINZOLAMIDE (AZOPT) OPS 10 ML BTL OPB SCH ×2 (08:18→19:33)
[2021-04-10 08:25] LABS: BUN Creatinine Ratio 12.4 (10-20); Calcium 9.4 mg/dl (8.5-10.1); Creatinine Clr Calc Pharmacy 39.1 ml/min; Est GFR (African American) 40.8 ml/min; Est GFR (Non-African American) 35.2 ml/min; Magnesium 2.1 mg/dl (1.8-2.4); Potassium 4.7 mmol/L (3.5-5.1)
[2021-04-10] MEDS: ONDANSETRON INJ 2 MG/ML 2 ML VIAL IV PRN (08:26)
[2021-04-10 08:27] LABS: Estimated Average Glucose 157 mg/dl; Hemoglobin A1C 7.1 % (4.5-5.6)
[2021-04-10 08:36] LABS: Thyroid Stimulating Hormone 2.26 uIu/ml (0.300-4.500)
[2021-04-10] MEDS ORDERED: FUROSEMIDE 80 MG TAB PO SCH (09:00)
[2021-04-10] MEDS ORDERED: IPRATROPIUM BROMIDE/ALBUTEROL respimat INH INH SCH (09:00)
[2021-04-10] MEDS ORDERED: POTASSIUM CHLORIDE CRTAB 20 MEQ TABCR PO SCH (09:00)
[2021-04-10] MEDS ORDERED: SPIRONOLACTONE 12.5 MG TAB PO SCH (09:00)
[2021-04-10] MEDS: lisinopril 2.5 MG TAB PO SCH (10:19)
[2021-04-10] MEDS: carvediloL 6.25 MG TAB PO SCH ×2 (10:19→19:33)
--- NOTE | 2021-04-10 15:29 | Hospitalist Progress Note ---
Date of Service April 10, 2021 Assessment & Plan (1) UTI due to extended-spectrum beta lactamase (ESBL) producing Escherichia coli: Was on Bactrim for suspected UTI for the last 2-3 days Urine culture came back positive for ESBL as an outpatient and presented to ER with increasing shortness of breath and weakness She has been started on intravenous ertapenem which will be continued for 10 to 14 days She has been feeling a little better since admission Denies any fever and/or chills We will get ultrasound-guided peripheral line (2) Acute exacerbation of chronic obstructive airways disease: She has history of COPD/asthma and has been on home oxygen, 2 L during the day and 4 L at night Has been complaining of more shortness of breath recently with minimal exertion She has mild exacerbation on examination Received 1 dose of Solu-Medrol 125 mg in ER and will not give any more since she has been improving, We will continue nebulized bronchodilators and other medications for her Clinically better (3) Hyponatremia: Sodium was noted to be low on admission at 127 Could be secondary to use of furosemide as an outpatient and low intake of sodium No signs of hypervolemia May need to give sodium tablet or increased oral intake of table salt We will monitor PRP (4) Gastroparesis: Complains to have nausea without any vomiting Likely secondary to known history of gastroparesis Doubt any gastroenteritis (5) Diabetes mellitus, type 2: Has been on SSI Monitor blood sugar (6) Chronic diastolic CHF (congestive heart failure): Chronic diastolic heart failure Has been on furosemide and spironolactone No signs of fluid overload, chest x-ray is not showing any pulmonary edema We will continue current doses of medication Atrial fibrillation Not on any anticoagulation due to history of GI bleed (7) JORDAN (obstructive sleep apnea): Does not use any CPAP and/or BiPAP (8) Chronic respiratory failure with hypoxia and hypercapnia: Has been on home oxygen, 2 L via nasal cannula during the day and 4 L at night Hypothyroidism On methimazole CBC is unremarkable We will check TSH-2.260 DVT prophylaxis Subcu heparin Admission and Anticipated Discharge Date Admission Date: April 10, 2021 Subjective 04/10/2021 The patient was seen and examined in medical telemetry unit She complains to have some epigastric discomfort with nausea but no vomiting She has been complaining of more shortness of breath with minimal exertion without any wheezing Has had problem with voiding with dysuria and frequency No fever and no chills Review of Systems Review of Systems: All systems reviewed and are unremarkable except as noted below Respiratory: + cough and + dyspnea on exertion Cardiovascular: no chest pain Gastrointestinal: + nausea; no abdominal pain and no vomiting Physical Exam Physical Exam: Lying in bed with minimal distress due to shortness of breath Constitutional: well developed, well nourished, + ill appearing and + obese Eyes: PERRL, conjunctivae normal, anicteric sclerae ENMT: external ear and nose normal, oropharynx normal Neck: trachea midline, no thyromegaly Respiratory: + respiratory distress (Minimal distress at rest) Auscultation: + diminished lung sounds and + wheezes (Very minimal wheezing); no crackles Cardiovascular: Rate/Rhythm: regular rate and regular rhythm Heart Sounds: no murmur Extremities: + edema (Trace edema bilaterally) Gastrointestinal (Abdomen): Inspection/Auscultation: abdomen not distended Percussion/Palpation: abdomen soft; abdomen nontender Musculoskeletal: No acute arthritis in any joint Neurologic: Alert, awake and oriented x3. No focal sensory and motor deficit appreciated Psychiatric: A+Ox3, euthymic affect Lymphatic: no cervical or axillary lymphadenopathy Results & Data Results & Data ([facility]) Vital Signs (Past 12 Hours) Vital Signs Temp Pulse Resp BP Pulse Ox 04/10/21 13:13 65 20 96 04/10/21 10:18 37 C 89 18 114/68 98 04/10/21 07:27 68 20 99 04/10/21 06:59 36.5 C 60 18 100/48 L 96 Laboratory Results Short CBC 04/09/21 04/10/21 Range/Units 20:54 07:14 WBC 14.07 H 13.19 H (4.8-10.8) K/uL Hgb 12.6 12.8 (12.0-16.0) g/dL Hct 39.0 39.5 (37-47) % Plt Count 407 H 438 H (130-400) K/uL BMP 04/09/21 04/10/21 20:54 07:14 Sodium 127 L 128 L Potassium 4.8 4.7 Chloride 93 L 94 L Carbon Dioxide 29 28 BUN 18 17 Creatinine 1.45 H 1.39 H Glucose 184 H 192 H Calcium 9.1 9.4 Cardiac Enzymes 04/09/21 Range/Units 20:54 Troponin I < 0.015 (0-0.045) ng/ml Liver Function 04/09/21 Range/Units 20:54 Total Bilirubin 0.3 (0.2-1) mg/dl AST 11 L (15-37) U/L ALT 12 (12-78) U/L Alkaline Phosphatase 132 H (45-117) U/L Albumin 3.2 L (3.4-5.0) gm/dl Medications Administered Current Inpatient Medications Acetaminophen (Acetaminophen 325 Mg Tab) 650 mg PO Q4H PRN PRN Reason: Pain or Fever Stop: 05/10/21 02:44 Hydrocodone Bitart/Acetaminophen (Hydrocodone/Acetamophen 5/325mg Tab) 1 tab PO Q6H PRN PRN Reason: Pain Stop: 04/24/21 02:44 Last Admin: 04/10/21 10:15 Dose: 1 tab Documented by: Albuterol (Albuterol Hfa 8 Gm Inhaler) 2 puffs INH QID PRN PRN Reason: Shortness Of Breath Stop: 05/10/21 02:44 Albuterol (Albuterol Hfa 8 Gm Inhaler (Combivent Respimat P&T Subs)) 1 puffs INH QIDR [facility] Stop: 05/10/21 06:59 Aspirin (Aspirin 81 Mg Ectab) 81 mg PO DAILY [facility] Stop: 05/10/21 08:59 Last Admin: 04/10/21 08:18 Dose: 81 mg Documented by: Atorvastatin Calcium (Atorvastatin 40 Mg Tab) 40 mg PO HS ADNREA Stop: 05/10/21 20:59 Bimatoprost (Bimatoprost 0.01% Op Soln 2.5 Ml Btl) 1 drops OP HS [facility] Stop: 05/10/21 20:59 Brinzolamide (Brinzolamide (Azopt) Ops 10 Ml Btl) 1 drops OPB BID [facility] Stop: 05/10/21 08:59 Last Admin: 04/10/21 08:18 Dose: 1 drops Documented by: Carvedilol (Carvedilol 6.25 Mg Tab) 6.25 mg PO BID [facility] Stop: 05/10/21 08:59 Last Admin: 04/10/21 10:19 Dose: 6.25 mg Documented by: Dextrose (Dextrose 50% 50 Ml Syringe) 25 - 50 ml IV UD PRN; Protocol PRN Reason: Hypoglycemia Protocol Stop: 05/10/21 03:44 Dicyclomine HCl (Dicyclomine Hcl 20 Mg Tab) 20 mg PO BID [facility] Stop: 05/10/21 08:59 Last Admin: 04/10/21 08:18 Dose: 20 mg Documented by: Digoxin (Digoxin 0.125 Mg Tab) 0.125 mg PO [id number] [facility] Stop: 05/11/21 15:59 Docusate Sodium (Docusate Sodium 100 Mg Cap) 100 mg PO QAM [facility] Stop: 05/10/21 08:59 Last Admin: 04/10/21 08:18 Dose: 100 mg Documented by: Ertapenem (Ertapenem Consult Active) 1 ea N/A UD PRN PRN Reason: Consult Stop: 05/10/21 03:22 Ferrous Sulfate (Ferrous Sulfate 325 Mg Tab) 325 mg PO QAM [facility] Stop: 05/10/21 08:59 Last Admin: 04/10/21 08:18 Dose: 325 mg Documented by: Fluticasone/Vilanterol (Fluticasone/Vilanterol 100/25mcg 14 Puffs/Inhaler) 1 puffs INH DAILY [facility] Stop: 05/10/21 08:59 Last Admin: 04/10/21 08:12 Dose: 1 puffs Documented by: Furosemide (Furosemide 40 Mg Tab) 40 mg PO 1700 [facility] Stop: 05/10/21 16:59 Furosemide (Furosemide 80 Mg Tab) 80 mg PO QAM [facility] Stop: 05/10/21 08:59 Last Admin: 04/10/21 10:20 Dose: 80 mg Documented by: Glucagon (Glucagon For Inj 1 Mg Vial) 1 mg IM UD PRN; Protocol PRN Reason: Hypoglycemia Protocol Stop: 05/10/21 03:44 Glucose (Glucose 40% Gel 15 Gm Tube) 15 - 30 gm PO UD PRN; Protocol PRN Reason: Hypoglycemia Protocol Stop: 05/10/21 03:44 Glucose (Glucose 10 Tabs/Tube) 4 - 8 tabs PO UD PRN; Protocol PRN Reason: Hypoglycemia Protocol Stop: 05/10/21 03:44 Heparin Sodium (Porcine) (Heparin Sod 5,000 Unit/0.5 Ml Vial) 5,000 units SQ Q12 [facility] Stop: 05/10/21 08:59 Last Admin: 04/10/21 08:11 Dose: Not Given Documented by: Ertapenem 1,000 mg/ Sodium (Chloride) 60 mls @ 100 mls/hr IV Q24H [facility]; Protocol Stop: 04/20/21 03:59 Last Infusion: 04/10/21 05:11 Dose: Infused Documented by: Insulin Aspart (Insulin Aspart 100 Units/Ml 3 Ml Pen) 0 units SC ACHS [facility] Stop: 05/10/21 03:59 Last Admin: 04/10/21 12:05 Dose: 8 units Documented by: Ipratropium [place] (Ipratropium [place] Neb Soln 0.02% 2.5 Ml Vial) 0.5 mg INH Q6R [facility] Stop: 05/10/21 06:59 Last Admin: 04/10/21 13:12 Dose: 0.5 mg Documented by: Ipratropium [place] (Ipratropium Hfa Inhaler (Combivent Respimat P&T Subs)) 1 puffs INH QIDR [facility] Stop: 05/10/21 06:59 Lactobacillus Acidoph/Casei/Rhamnos (Advanced Probiotic 1250 Mg Capsule) 2 cap PO QAM [facility] Stop: 05/10/21 08:59 Last Admin: 04/10/21 08:18 Dose: 2 cap Documented by: Levalbuterol HCl (Levalbuterol 1.25mg/0.5ml Neb) 1.25 mg INH Q6R [facility] Stop: 05/10/21 06:59 Last Admin: 04/10/21 13:12 Dose: 1.25 mg Documented by: Lisinopril (Lisinopril 2.5 Mg Tab) 2.5 mg PO DAILY [facility] Stop: 05/10/21 08:59 Last Admin: 04/10/21 10:19 Dose: 2.5 mg Documented by: Methimazole (Methimazole 5 Mg Tablet) 10 mg PO DAILY [facility] Stop: 05/10/21 08:59 Last Admin: 04/10/21 08:17 Dose: 10 mg Documented by: Miscellaneous (Zafirkulast~Order Awaiting Action) 1 ea N/A QS [facility] Stop: 05/10/21 07:59 Last Admin: 04/10/21 08:14 Dose: Not Given Documented by: Miscellaneous (Carbohydrates For Hypoglycemia ) 15 - 30 gm PO UD PRN PRN Reason: Hypoglycemia Treatment Stop: 05/10/21 03:44 Multivitamins (Multivitamin Tab) 1 tab PO QAM [facility] Stop: 05/10/21 08:59 Last Admin: 04/10/21 08:17 Dose: 1 tab Documented by: Nitroglycerin (Nitroglycerin Sl 0.4 Mg/Tab Tab) 0.4 mg SL UD PRN PRN Reason: Chest Pain Stop: 05/10/21 02:44 Ondansetron HCl (Ondansetron Inj 2 Mg/Ml 2 Ml Vial) 4 mg IV Q6H PRN PRN Reason: Nausea Stop: 05/10/21 02:44 Last Admin: 04/10/21 08:26 Dose: 4 mg Documented by: Pantoprazole Sodium (Pantoprazole 40 Mg Tab) 40 mg PO BID [facility] Stop: 05/10/21 08:59 Last Admin: 04/10/21 08:17 Dose: 40 mg Documented by: Polyethylene Glycol (Polyethylene (Miralax) 17 Gm Pack) 17 gm PO BID PRN PRN Reason: Constipation Stop: 05/10/21 02:44 Potassium Chloride (Potassium Chloride Crtab 20 Meq Tabcr) 20 meq PO DAILY [facility] Stop: 05/10/21 08:59 Last Admin: 04/10/21 08:17 Dose: 20 meq Documented by: Promethazine HCl (Promethazine Hcl 25 Mg Tab) 25 mg PO Q6H PRN PRN Reason: nausea and vomiting Stop: 05/10/21 02:44 Spironolactone (Spironolactone 12.5 Mg Tab) 12.5 mg PO DAILY [facility] Stop: 05/10/21 08:59 Last Admin: 04/10/21 08:17 Dose: 12.5 mg Documented by: Vitamin D (Cholecalciferol 1,000 Units 25 Mcg Tab) 1,000 units PO QAM [facility] Stop: 05/10/21 08:59 Last Admin: 04/10/21 08:18 Dose: 1,000 units Documented by:
[2021-04-10] MEDS ORDERED: FUROSEMIDE 40 MG TAB PO SCH (17:00)
[2021-04-10] MEDS: BIMATOPROST 0.01% OP SOLN 2.5 ML BTL OP SCH (19:33)
[2021-04-10] MEDS: ATORVASTATIN 40 MG TAB PO SCH (19:34)
[2021-04-11] MEDS: PROMETHAZINE HCL 25 MG TAB PO PRN (00:22)
[2021-04-11] MEDS: HYDROCODONE/ACETAMOPHEN 5/325MG TAB PO PRN ×4 (00:22→21:38)
[2021-04-11] MEDS: IPRATROPIUM BROMIDE NEB SOLN 0.02% 2.5 ML VIAL INH SCH ×3 (00:42→13:12)
[2021-04-11] MEDS: LEVALBUTEROL 1.25MG/0.5ML NEB INH SCH ×3 (00:42→13:12)
[2021-04-11] MEDS: ERTAPENEM SODIUM 1,000 MG in SODIUM CHLORIDE 0.9% 50 ML IV SCH (04:07)
[2021-04-11 07:07] LABS: Basophils # (auto) 0.01 K/uL (0-0.2); Basophils % (auto) 0.1 %; Eosinophils # (auto) 0.01 K/uL (0-0.5); Eosinophils % (auto) 0.1 %; Hematocrit (blood only) 35.3 % (37-47); Hemoglobin 11.5 g/dL (12.0-16.0); Immature Granulocytes # (auto) 0.09 K/uL (0.00-0.02); Immature Granulocytes % (auto) 0.5 %; Lymphocytes # (auto) 2.41 K/uL (1.2-3.4); Lymphocytes % (auto) 14.6 %; Mean Corpuscular Hemoglobin 28.6 pg (25-34); Mean Corpuscular Hgb Conc 32.6 g/dL (32-36); Mean Corpuscular Volume 87.8 fL (80-100); Mean Platelet Volume 9.4 fL (7.4-10.4); Monocytes # (auto) 1.35 K/uL (0.11-0.59); Monocytes % (auto) 8.2 %; Neutrophils # (auto) 12.62 K/uL (1.4-6.5); Neutrophils % (auto) 76.5 %; Platelet Count 392 K/uL (130-400); RDW Coefficient of Variation 14.2 % (11.5-14.5); RDW Standard Deviation 45.8 fL (36.4-46.3); Red Blood Count 4.02 M/uL (4.2-5.4); White Blood Count 16.49 K/uL (4.8-10.8)
[2021-04-11] MEDS: HEPARIN SOD 5,000 UNIT/0.5 ML VIAL SQ SCH ×3 (07:15→21:31)
[2021-04-11 07:38] LABS: BUN Creatinine Ratio 16.4 (10-20); Calcium 9.3 mg/dl (8.5-10.1); Creatinine Clr Calc Pharmacy 38.3 ml/min; Est GFR (African American) 39.4 ml/min; Potassium 4.9 mmol/L (3.5-5.1)
[2021-04-11] MEDS: ADVANCED PROBIOTIC 1250 MG CAPSULE PO SCH (07:51)
[2021-04-11] MEDS: MULTIVITAMIN TAB PO SCH (07:52)
[2021-04-11] MEDS: FERROUS SULFATE 325 MG TAB PO SCH (07:52)
[2021-04-11] MEDS: DICYCLOMINE HCL 20 MG TAB PO SCH ×2 (07:52→21:28)
[2021-04-11] MEDS: methIMAzole 5 MG TABLET PO SCH (07:52)
[2021-04-11] MEDS: PANTOprazole 40 MG TAB PO SCH ×2 (07:52→21:29)
[2021-04-11] MEDS: CHOLECALCIFEROL 1,000 UNITS 25 MCG TAB PO SCH (07:53)
[2021-04-11] MEDS: ASPIRIN 81 MG ECTAB PO SCH (07:54)
[2021-04-11] MEDS: FLUTICASONE/VILANTEROL 100/25MCG 14 PUFFS/INHALER INH SCH (07:55)
[2021-04-11] MEDS: carvediloL 6.25 MG TAB PO SCH (07:56)
[2021-04-11] MEDS: BRINZOLAMIDE (AZOPT) OPS 10 ML BTL OPB SCH ×2 (08:00→21:29)
[2021-04-11] MEDS: lisinopril 2.5 MG TAB PO SCH (08:01)
[2021-04-11] MEDS: DOCUSATE SODIUM 100 MG CAP PO SCH (08:08)
[2021-04-11] MEDS: INSULIN ASPART 100 UNITS/ML 3 ML PEN SC SCH ×4 (08:09→21:43)
[2021-04-11] MEDS ORDERED: SODIUM CHLORIDE 0.9% 1000ML 500 ML IV ONE (12:03)
--- NOTE | 2021-04-11 12:23 | Hospitalist Progress Note ---
Date of Service April 11, 2021 Assessment & Plan (1) Dyspnea: She has history of COPD/asthma and has been on home oxygen, 2 L during the day and 4 L at night. Recent admission 1 month ago for CHF exacerbation and her medications were optimized. She does not appear to have an acute heart failure or acute COPD process going on at this time. CXR was negative on admission. She appears euvolemic to dry. She does report her breathing is somewhat improved since yesterday but is continuing to report generalized malaise with ongoing infection. Cont to hold diuretics at this time to help hypotension and JOSE DAVID. Add some IVF. Repeat BMP in am. (2) UTI due to extended-spectrum beta lactamase (ESBL) producing Escherichia coli: Bactrim given for suspected UTI, changed on admission 04/10 to to Invanz when culture came back positive for ESBL E. coli. Continue Invanz. Consulting Min SCHULZ. Hypotension present, but at this time do not suspect sepsis. Patient is not tachycardic. She does have an elevated white count but did receive steroids on admission. She is not febrile at this time. She declines any supportive medications such as Pyridium at this time. (3) Hypotension: new hypotension this am. Patient reports significant urinary output overnight, despite no output being recorded. Will hold diuretics, give small bolus followed by continuous fluids for now and monitor clinical picture. Sepsis considered but doesn't appears to be septic at this time. Normal HR and leukocytosis thought secondary to recent steroid administration. (4) JOSE DAVID (acute kidney injury): Creatinine elevated to 1.4 on admission likely secondary to Bactrim use, dehydration in setting of infection and ongoing diuretic use. In addition to her newer Lasix 80 mg daily she was instructed to take an afternoon Lasix of 40 mg if her weight increased. She reports having taken this recently. Holding diuretics at this time, giving some fluids, repeat BMP in a.m. (5) Hyponatremia: Improved from 128-133. Continue p.o. intake as tolerated which she seems to be doing well with. Plan as above. (6) Chronic respiratory failure with hypoxia and hypercapnia: 2/2 COPD. Has been on home oxygen, 2 L via nasal cannula during the day and 4 L at night (7) COPD (chronic obstructive pulmonary disease): Appears stable without evidence of wheezing, sputum changes or coughing. There is some dyspnea however she appears to be improved. She did receive 1 dose of steroids in the ER approximately 24 hours ago and has remained on scheduled bronchodilators since that time. We will continue to monitor for worsening clinical picture in the hospital. Bronchodilators changed to PRN. (8) Chronic HFrEF (heart failure with reduced ejection fraction): Known h/o NICM-recent med optimization after recent hospitalization one month ago. Appears euvolemic to dry. Holding diuretics at this time per plan above. Continue daily weights, low-sodium diet, strict ins and outs. (9) Chronic atrial fibrillation: Controlled with Coreg and digoxin. Holding Coreg at this time secondary to hypotension. Continue digoxin therapy. Rate is 74 bpm. Patient denies any palpitations. Not on anticoagulation. Followed by [facility] cardiology. (10) JORDAN (obstructive sleep apnea): Does not use any CPAP and/or BiPAP (11) Diabetes mellitus, type 2: controlled on SSI inpatient. Recent A1C is 7.1. Cont correction factor insulin with carb coverage for now. (12) Gastroparesis: Complains to have nausea without any vomiting, has a known h/o gastroparesis. (13) DVT prophylaxis: Heparin Full Code Dispo-uncertain at this time. Remains on telemetry Ruby Begum DO [facility] Hospitalist Admission and Anticipated Discharge Date Admission Date: April 10, 2021 Subjective Mrs. Harrington is an 80-year-old female with a known history of heart failure and persistent atrial fibrillation who also has chronic hypoxic respiratory failure secondary to COPD who presented with worsening shortness of breath for the past 2 days. She denied any coughing, fevers, chills, wheezing or any sputum change s. She denied any swelling but reported some dyspnea on exertion. Today she reports this is improved. She was recently discharged in the hospital approximately 1 month ago with new medications to include spironolactone, Lasix 80 mg in the morning and she now takes 40 mg in the afternoon, and increased amount of Coreg. She reports some improvement in her breathing today but is now reporting lightheadedness with some nausea. Her blood pressure is low at 88/44. She is on chronic narcotic therapy for chronic back pain. Creatinine remains elevated at 1.43 today. She was 1.45 on admission with a baseline of 0.8-0.9. She denies any palpitations or chest pain. She was admitted with an ESBL E. coli UTI and was transitioned to Invanz. She still reports some dysuria and incomplete voiding that is present and has some suprapubic discomfort. This is improving but still present. Review of Systems Review of Systems: All systems reviewed & are unremarkable except as noted in Subjective Physical Exam Physical Exam: CONSTITUTIONAL: obese, vitals as above, generally NAD but ill- appearing EYES: normal conjunctivae, no scleral icterus ENT: external ear and nose normal, mucous membranes appear dry RESPIRATORY: clear to auscultation bilaterally, no crackles, rales or wheezes, normal respiratory effort CARDIOVASCULAR: irregular rate and irregular rhythm, S1 and 2 heard without murmurs, gallops or rubs, no JVD, no peripheral edema GASTROINTESTINAL: soft, slight discomfort in suprapubic region, no guarding MUSCULOSKELETAL: strength 5/5 throughout, head is normocephalic and atraumatic SKIN: warm and dry NEUROLOGIC: CN 2-12 grossly intact, no sensory deficit, normal cognition, normal speech, no gross focal deficits. PSYCHIATRIC: alert cooperative and oriented to person, place and time. Results & Data Results & Data ([facility]) Vital Signs (Past 12 Hours) Vital Signs Temp Pulse Pulse Resp BP Pulse Ox 04/11/21 11:27 36.6 C 74 18 88/44 L 96 04/11/21 07:54 37.0 C 60 18 94 04/11/21 07:48 98/44 L 04/11/21 07:07 60 18 96 04/11/21 07:01 59 L 04/11/21 03:04 36.5 C 58 L 20 121/53 L 98 04/11/21 00:44 63 04/11/21 00:42 60 20 96 Laboratory Results Short CBC 04/11/21 Range/Units 06:52 WBC 16.49 H (4.8-10.8) K/uL Hgb 11.5 L (12.0-16.0) g/dL Hct 35.3 L (37-47) % Plt Count 392 (130-400) K/uL BMP 04/11/21 06:52 Sodium 133 L Potassium 4.9 Chloride 99 Carbon Dioxide 34 H BUN 23 H Creatinine 1.43 H Glucose 118 H Calcium 9.3 Medications Administered Current Inpatient Medications Acetaminophen (Acetaminophen 325 Mg Tab) 650 mg PO Q4H PRN PRN Reason: Pain or Fever Stop: 05/10/21 02:44 Hydrocodone Bitart/Acetaminophen (Hydrocodone/Acetamophen 5/325mg Tab) 1 tab PO Q6H PRN PRN Reason: Pain Stop: 04/24/21 02:44 Last Admin: 04/11/21 12:14 Dose: 1 tab Documented by: Albuterol (Albuterol Hfa 8 Gm Inhaler) 2 puffs INH QID PRN PRN Reason: Shortness Of Breath Stop: 05/10/21 02:44 Albuterol (Albuterol Hfa 8 Gm Inhaler (Combivent Respimat P&T Subs)) 1 puffs INH QIDR [facility] Stop: 05/10/21 06:59 Aspirin (Aspirin 81 Mg Ectab) 81 mg PO DAILY [facility] Stop: 05/10/21 08:59 Last Admin: 04/11/21 07:54 Dose: 81 mg Documented by: Atorvastatin Calcium (Atorvastatin 40 Mg Tab) 40 mg PO HS [facility] Stop: 05/10/21 20:59 Last Admin: 04/10/21 19:34 Dose: 40 mg Documented by: Bimatoprost (Bimatoprost 0.01% Op Soln 2.5 Ml Btl) 1 drops OP HS [facility] Stop: 05/10/21 20:59 Last Admin: 04/10/21 19:33 Dose: 1 drops Documented by: Brinzolamide (Brinzolamide (Azopt) Ops 10 Ml Btl) 1 drops OPB BID [facility] Stop: 05/10/21 08:59 Last Admin: 04/11/21 08:00 Dose: 1 drops Documented by: Carvedilol (Carvedilol 6.25 Mg Tab) 6.25 mg PO BID [facility] Stop: 05/10/21 08:59 Last Admin: 04/11/21 07:56 Dose: Not Given Documented by: Dextrose (Dextrose 50% 50 Ml Syringe) 25 - 50 ml IV UD PRN; Protocol PRN Reason: Hypoglycemia Protocol Stop: 05/10/21 03:44 Dicyclomine HCl (Dicyclomine Hcl 20 Mg Tab) 20 mg PO BID [facility] Stop: 05/10/21 08:59 Last Admin: 04/11/21 07:52 Dose: 20 mg Documented by: Digoxin (Digoxin 0.125 Mg Tab) 0.125 mg PO [id number]@1600 [facility] Stop: 05/11/21 15:59 Docusate Sodium (Docusate Sodium 100 Mg Cap) 100 mg PO QAM [facility] Stop: 05/10/21 08:59 Last Admin: 04/11/21 08:08 Dose: 100 mg Documented by: Ertapenem (Ertapenem Consult Active) 1 ea N/A UD PRN PRN Reason: Consult Stop: 05/10/21 03:22 Ferrous Sulfate (Ferrous Sulfate 325 Mg Tab) 325 mg PO QAM [facility] Stop: 05/10/21 08:59 Last Admin: 04/11/21 07:52 Dose: 325 mg Documented by: Fluticasone/Vilanterol (Fluticasone/Vilanterol 100/25mcg 14 Puffs/Inhaler) 1 puffs INH DAILY [facility] Stop: 05/10/21 08:59 Last Admin: 04/11/21 07:55 Dose: 1 puffs Documented by: Furosemide (Furosemide 40 Mg Tab) 40 mg PO 1700 [facility] Stop: 05/10/21 16:59 Last Admin: 04/10/21 17:40 Dose: 40 mg Documented by: Furosemide (Furosemide 80 Mg Tab) 80 mg PO QAM [facility] Stop: 05/10/21 08:59 Last Admin: 04/10/21 10:20 Dose: 80 mg Documented by: Glucagon (Glucagon For Inj 1 Mg Vial) 1 mg IM UD PRN; Protocol PRN Reason: Hypoglycemia Protocol Stop: 05/10/21 03:44 Glucose (Glucose 40% Gel 15 Gm Tube) 15 - 30 gm PO UD PRN; Protocol PRN Reason: Hypoglycemia Protocol Stop: 05/10/21 03:44 Glucose (Glucose 10 Tabs/Tube) 4 - 8 tabs PO UD PRN; Protocol PRN Reason: Hypoglycemia Protocol Stop: 05/10/21 03:44 Heparin Sodium (Porcine) (Heparin Sod 5,000 Unit/0.5 Ml Vial) 5,000 units SQ Q12 [facility] Stop: 05/10/21 08:59 Last Admin: 04/11/21 07:15 Dose: Not Given Documented by: Ertapenem 1,000 mg/ Sodium (Chloride) 60 mls @ 100 mls/hr IV Q24H [facility]; Protocol Stop: 04/20/21 03:59 Last Infusion: 04/11/21 04:47 Dose: Infused Documented by: Sodium Chloride (Nss 1000ml) 1,000 mls @ 80 mls/hr IV .[id number] [facility] Stop: 04/12/21 13:14 Sodium Chloride (Nss 1000ml) 500 mls @ 999 mls/hr IV .Q31M ONE Stop: 04/11/21 12:33 Last Admin: 04/11/21 12:16 Dose: 999 mls/hr Documented by: Insulin Aspart (Insulin Aspart 100 Units/Ml 3 Ml Pen) 0 units SC ACHS [facility] Stop: 05/10/21 03:59 Last Admin: 04/11/21 08:09 Dose: 4 units Documented by: Ipratropium [place] (Ipratropium [place] Neb Soln 0.02% 2.5 Ml Vial) 0.5 mg INH Q6R [facility] Stop: 05/10/21 06:59 Last Admin: 04/11/21 07:06 Dose: 0.5 mg Documented by: Ipratropium [place] (Ipratropium Hfa Inhaler (Combivent Respimat P&T Subs)) 1 puffs INH QIDR [facility] Stop: 05/10/21 06:59 Lactobacillus Acidoph/Casei/Rhamnos (Advanced Probiotic 1250 Mg Capsule) 2 cap PO QAM [facility] Stop: 05/10/21 08:59 Last Admin: 04/11/21 07:51 Dose: 2 cap Documented by: Levalbuterol HCl (Levalbuterol 1.25mg/0.5ml Neb) 1.25 mg INH Q6R [facility] Stop: 05/10/21 06:59 Last Admin: 04/11/21 07:07 Dose: 1.25 mg Documented by: Lisinopril (Lisinopril 2.5 Mg Tab) 2.5 mg PO DAILY [facility] Stop: 05/10/21 08:59 Last Admin: 04/11/21 08:01 Dose: Not Given Documented by: Methimazole (Methimazole 5 Mg Tablet) 10 mg PO DAILY [facility] Stop: 05/10/21 08:59 Last Admin: 04/11/21 07:52 Dose: 10 mg Documented by: Miscellaneous (Zafirkulast~Order Awaiting Action) 1 ea N/A QS [facility] Stop: 05/10/21 07:59 Last Admin: 04/11/21 07:49 Dose: Not Given Documented by: Miscellaneous (Carbohydrates For Hypoglycemia ) 15 - 30 gm PO UD PRN PRN Reason: Hypoglycemia Treatment Stop: 05/10/21 03:44 Multivitamins (Multivitamin Tab) 1 tab PO QAM [facility] Stop: 05/10/21 08:59 Last Admin: 04/11/21 07:52 Dose: 1 tab Documented by: Nitroglycerin (Nitroglycerin Sl 0.4 Mg/Tab Tab) 0.4 mg SL UD PRN PRN Reason: Chest Pain Stop: 05/10/21 02:44 Ondansetron HCl (Ondansetron Inj 2 Mg/Ml 2 Ml Vial) 4 mg IV Q6H PRN PRN Reason: Nausea Stop: 05/10/21 02:44 Last Admin: 04/10/21 08:26 Dose: 4 mg Documented by: Pantoprazole Sodium (Pantoprazole 40 Mg Tab) 40 mg PO BID [facility] Stop: 05/10/21 08:59 Last Admin: 04/11/21 07:52 Dose: 40 mg Documented by: Polyethylene Glycol (Polyethylene (Miralax) 17 Gm Pack) 17 gm PO BID PRN PRN Reason: Constipation Stop: 05/10/21 02:44 Potassium Chloride (Potassium Chloride Crtab 20 Meq Tabcr) 20 meq PO DAILY [facility] Stop: 05/10/21 08:59 Last Admin: 04/10/21 08:17 Dose: 20 meq Documented by: Promethazine HCl (Promethazine Hcl 25 Mg Tab) 25 mg PO Q6H PRN PRN Reason: nausea and vomiting Stop: 05/10/21 02:44 Last Admin: 04/11/21 00:22 Dose: 25 mg Documented by: Spironolactone (Spironolactone 12.5 Mg Tab) 12.5 mg PO DAILY [facility] Stop: 05/10/21 08:59 Last Admin: 04/10/21 08:17 Dose: 12.5 mg Documented by: Vitamin D (Cholecalciferol 1,000 Units 25 Mcg Tab) 1,000 units PO QAM [facility] Stop: 05/10/21 08:59 Last Admin: 04/11/21 07:53 Dose: 1,000 units Documented by:
--- NOTE | 2021-04-11 12:40 | Electrocardiogram Report ---
Test Reason : Blood Pressure : / mmHG Vent. Rate : 087 BPM Atrial Rate : 083 BPM P-R Int : 000 ms QRS Dur : 130 ms QT Int : 362 ms P-R-T Axes : 000 -45 102 degrees QTc Int : 435 ms Atrial fibrillation with premature ventricular or aberrantly conducted complexes Non-specific intra-ventricular conduction block Abnormal ECG When compared with ECG of 01-MAR-2021 05:04, Premature ventricular complexes are now Present Confirmed by Jason Bailey ([id number]) on 04/11/2021 12:40:31 PM Referred By: REFERRED SELF Confirmed By:Jason Bailey
[2021-04-11] MEDS: SODIUM CHLORIDE 0.9% 1000ML 1,000 ML IV SCH (12:47)
[2021-04-11] MEDS ORDERED: ALBUTEROL HFA 8 GM INHALER INH PRN (13:01)
[2021-04-11] MEDS: LEVALBUTEROL 1.25MG/0.5ML NEB INH PRN (13:10)
[2021-04-11] MEDS: IPRATROPIUM BROMIDE NEB SOLN 0.02% 2.5 ML VIAL INH PRN (13:10)
[2021-04-11] MEDS: ONDANSETRON INJ 2 MG/ML 2 ML VIAL IV PRN (14:03)
[2021-04-11] MEDS: DIGOXIN 0.125 MG TAB PO SCH (16:22)
[2021-04-11] MEDS: ATORVASTATIN 40 MG TAB PO SCH (21:27)
[2021-04-11] MEDS: BIMATOPROST 0.01% OP SOLN 2.5 ML BTL OP SCH (21:30)
[2021-04-12] MEDS: SODIUM CHLORIDE 0.9% 1000ML 1,000 ML IV SCH ×2 (01:46→21:47)
[2021-04-12] MEDS: ERTAPENEM SODIUM 1,000 MG in SODIUM CHLORIDE 0.9% 50 ML IV SCH (04:57)
[2021-04-12] MEDS: HEPARIN SOD 5,000 UNIT/0.5 ML VIAL SQ SCH ×3 (06:03→21:40)
[2021-04-12] MEDS: FLUTICASONE/VILANTEROL 100/25MCG 14 PUFFS/INHALER INH SCH (07:18)
[2021-04-12] MEDS: BRINZOLAMIDE (AZOPT) OPS 10 ML BTL OPB SCH ×2 (07:18→21:45)
[2021-04-12] MEDS: methIMAzole 5 MG TABLET PO SCH (07:19)
[2021-04-12] MEDS: PANTOprazole 40 MG TAB PO SCH ×2 (07:19→21:44)
[2021-04-12] MEDS: DICYCLOMINE HCL 20 MG TAB PO SCH ×2 (07:19→21:44)
[2021-04-12] MEDS: ASPIRIN 81 MG ECTAB PO SCH (07:20)
[2021-04-12] MEDS: FERROUS SULFATE 325 MG TAB PO SCH (07:20)
[2021-04-12] MEDS: MULTIVITAMIN TAB PO SCH (07:20)
[2021-04-12] MEDS: CHOLECALCIFEROL 1,000 UNITS 25 MCG TAB PO SCH (07:20)
[2021-04-12] MEDS: ADVANCED PROBIOTIC 1250 MG CAPSULE PO SCH (07:20)
[2021-04-12] MEDS: HYDROCODONE/ACETAMOPHEN 5/325MG TAB PO PRN (07:28)
[2021-04-12] MEDS: DOCUSATE SODIUM 100 MG CAP PO SCH (07:28)
[2021-04-12 08:01] LABS: Hematocrit (blood only) 33.8 % (37-47); Hemoglobin 10.7 g/dL (12.0-16.0); Mean Corpuscular Hemoglobin 28.5 pg (25-34); Mean Corpuscular Hgb Conc 31.7 g/dL (32-36); Mean Corpuscular Volume 90.1 fL (80-100); Mean Platelet Volume 9.6 fL (7.4-10.4); Platelet Count 364 K/uL (130-400); RDW Coefficient of Variation 14.7 % (11.5-14.5); RDW Standard Deviation 48.6 fL (36.4-46.3); Red Blood Count 3.75 M/uL (4.2-5.4); White Blood Count 11.93 K/uL (4.8-10.8)
[2021-04-12 08:29] LABS: BUN Creatinine Ratio 18.1 (10-20); Calcium 8.6 mg/dl (8.5-10.1); Creatinine Clr Calc Pharmacy 39.2 ml/min; Est GFR (African American) 40.8 ml/min; Est GFR (Non-African American) 35.2 ml/min; Magnesium 2.1 mg/dl (1.8-2.4); Phosphorus 3.2 mg/dl (2.5-4.9); Potassium 4.9 mmol/L (3.5-5.1)
[2021-04-12] MEDS: INSULIN ASPART 100 UNITS/ML 3 ML PEN SC SCH ×4 (08:51→21:47)
[2021-04-12] MEDS: LEVALBUTEROL 1.25MG/0.5ML NEB INH PRN (13:07)
[2021-04-12] MEDS: IPRATROPIUM BROMIDE NEB SOLN 0.02% 2.5 ML VIAL INH PRN (13:07)
--- NOTE | 2021-04-12 15:15 | Hospitalist Progress Note ---
Date of Service April 12, 2021 Assessment & Plan (1) Adrenal insufficiency: Random cortisol this morning was 3 in the setting of acute infection, hypotension. Patient reported increased cold intolerance today and worsening intermittent abdominal discomfort without clear etiology. All of these things are consistent with adrenal insufficiency. Started stress dose hydrocortisone and will continue with this with taper as she improves clinically. (2) UTI due to extended-spectrum beta lactamase (ESBL) producing Escherichia coli: Bactrim given for suspected UTI, changed on admission 04/10 to to Invanz when culture came back positive for ESBL E. coli. Continue Invanz. Consulting [facility] ID. Continue Invanz For another couple of days. Leukocytosis improved. (3) Dyspnea: She has history of COPD/asthma and has been on home oxygen, 2 L during the day and 4 L at night. She is at her baseline. Current symptoms attributed to adrenal insufficiency. (4) Hypotension: new hypotension likely secondary to adrenal insufficiency. Continue IV fluid support with antihypertensives and diuretics held. Continue hydrocortisone as above. (5) JOSE DAVID (acute kidney injury): Creatinine elevated to 1.4 on admission likely secondary to Bactrim use, dehydration in setting of infection and ongoing diuretic use. Holding diuretics and lisinopril at this time. Creatinine is 1.39 today. Continue to trend. (6) Hyponatremia: Resolved to normal range-139 today (7) Chronic respiratory failure with hypoxia and hypercapnia: 2/2 COPD. Has been on home oxygen, 2 L via nasal cannula during the day and 4 L at night (8) COPD (chronic obstructive pulmonary disease): Appears stable without evidence of wheezing, sputum changes or coughing. There is some dyspnea however she appears to be improved. She did receive 1 dose of steroids in the ER approximately 24 hours ago and has remained on scheduled bronchodilators since that time. Bronchodilators changed to PRN. (9) Chronic HFrEF (heart failure with reduced ejection fraction): Known h/o NICM-recent med optimization after recent hospitalization one month ago. Appears euvolemic to dry. Holding diuretics at this time per plan above. Continue daily weights, low-sodium diet, strict ins and outs. (10) Chronic atrial fibrillation: Controlled with Coreg and digoxin. Holding Coreg at this time secondary to hypotension. Continue digoxin therapy. Rate is 74 bpm. Patient denies any palpitations. Not on anticoagulation. Followed by [facility] cardiology. (11) JORDAN (obstructive sleep apnea): Does not use any CPAP and/or BiPAP (12) Diabetes mellitus, type 2: controlled on SSI inpatient. Recent A1C is 7.1. Cont correction factor insulin with carb coverage for now. Added glargine and tightened scale with added steroids in anticipation of hyperglycemia. (13) DVT prophylaxis: Heparin Full Code Dispo-uncertain at this time. Remains on telemetry [facility] Hospitalist Admission and Anticipated Discharge Date Admission Date: April 10, 2021 Subjective Mrs. Harrington is an 80-year-old female with a known history of heart failure and persistent atrial fibrillation who also has chronic hypoxic respiratory failure secondary to COPD who presented with worsening shortness of breath for the past 2 days. Creatinine was 1.45 on admission with a baseline of 0.8-0.9. She was admitted with an ESBL E. coli UTI and was transitioned from Bactrim as an outpatient to Invanz. She has been hypotensive despite fluids and antibiotics. Concern for adrenal insufficiency developed and her random cortisol was low. Started on hydrocortisone IV today. Generally she reports feeling generalized malaise with intermittent abdominal discomfort, weakness, fatigue, lethargy. She also has some tremulousness especially in her hands bilaterally. Worsening cold intolerance today Review of Systems Review of Systems: All systems reviewed & are unremarkable except as noted in Subjective Physical Exam Physical Exam: CONSTITUTIONAL: obese, vitals as above, generally NAD but ill- appearing, shaky EYES: normal conjunctivae, no scleral icterus ENT: external ear and nose normal, mucous membranes appear dry RESPIRATORY: clear to auscultation bilaterally, no crackles, rales or wheezes, normal respiratory effort CARDIOVASCULAR: irregular rate and irregular rhythm, S1 and 2 heard without murmurs, gallops or rubs, no JVD, no peripheral edema GASTROINTESTINAL: soft, slight discomfort in suprapubic region, no guarding MUSCULOSKELETAL: strength 5/5 throughout, head is normocephalic and atraumatic SKIN: warm and dry NEUROLOGIC: CN 2-12 grossly intact, no sensory deficit, normal cognition, normal speech, no gross focal deficits. PSYCHIATRIC: alert cooperative and oriented to person, place and time. Results & Data Results & Data ([facility]) Vital Signs (Past 12 Hours) Vital Signs Temp Pulse Pulse Resp BP BP Pulse Ox 04/12/21 15:12 36.4 C L 76 18 100/62 97 04/12/21 13:08 69 18 96 04/12/21 11:05 36.5 C 63 20 102/67 99 04/12/21 07:58 45 L 04/12/21 07:29 36.5 C 61 18 93/60 L 99 04/12/21 05:38 68 04/12/21 03:16 36.6 C 75 18 103/55 L 98 Laboratory Results Short CBC 04/12/21 04/12/21 Range/Units 07:10 07:12 WBC 11.93 H (4.8-10.8) K/uL Hgb 10.7 L (12.0-16.0) g/dL Hct 33.8 L (37-47) % Plt Count 364 (130-400) K/uL Random Cortisol 3.78 mcg/dl BMP 04/12/21 07:10 Sodium 139 Potassium 4.9 Chloride 105 Carbon Dioxide 33 H BUN 25 H Creatinine 1.39 H Glucose 78 Calcium 8.6 Medications Administered Current Inpatient Medications Acetaminophen (Acetaminophen 325 Mg Tab) 650 mg PO Q4H PRN PRN Reason: Pain or Fever Stop: 05/10/21 02:44 Hydrocodone Bitart/Acetaminophen (Hydrocodone/Acetamophen 5/325mg Tab) 1 tab PO Q6H PRN PRN Reason: Pain Stop: 04/24/21 02:44 Last Admin: 04/12/21 07:28 Dose: 1 tab Documented by: Albuterol (Albuterol Hfa 8 Gm Inhaler) 2 puffs INH QID PRN PRN Reason: Shortness Of Breath Stop: 05/10/21 02:44 Albuterol (Albuterol Hfa 8 Gm Inhaler) 1 puffs INH QIDR PRN PRN Reason: SOB/wheezing Stop: 05/10/21 06:59 Aspirin (Aspirin 81 Mg Ectab) 81 mg PO DAILY ANDREA Stop: 05/10/21 08:59 Last Admin: 04/12/21 07:20 Dose: 81 mg Documented by: Atorvastatin Calcium (Atorvastatin 40 Mg Tab) 40 mg PO HS ANDREA Stop: 05/10/21 20:59 Last Admin: 04/11/21 21:27 Dose: 40 mg Documented by: Bimatoprost (Bimatoprost 0.01% Op Soln 2.5 Ml Btl) 1 drops OP HS ANDREA Stop: 05/10/21 20:59 Last Admin: 04/11/21 21:30 Dose: 1 drops Documented by: Brinzolamide (Brinzolamide (Azopt) Ops 10 Ml Btl) 1 drops OPB BID ANDREA Stop: 05/10/21 08:59 Last Admin: 04/12/21 07:18 Dose: 1 drops Documented by: Carvedilol (Carvedilol 6.25 Mg Tab) 6.25 mg PO BID ANDREA Stop: 05/10/21 08:59 Last Admin: 04/11/21 07:56 Dose: Not Given Documented by: Dextrose (Dextrose 50% 50 Ml Syringe) 25 - 50 ml IV UD PRN; Protocol PRN Reason: Hypoglycemia Protocol Stop: 05/10/21 03:44 Dicyclomine HCl (Dicyclomine Hcl 20 Mg Tab) 20 mg PO BID [facility] Stop: 05/10/21 08:59 Last Admin: 04/12/21 07:19 Dose: 20 mg Documented by: Digoxin (Digoxin 0.125 Mg Tab) 0.125 mg PO [id number] [facility] Stop: 05/11/21 15:59 Last Admin: 04/11/21 16:22 Dose: 0.125 mg Documented by: Docusate Sodium (Docusate Sodium 100 Mg Cap) 100 mg PO QAM [facility] Stop: 05/10/21 08:59 Last Admin: 04/12/21 07:28 Dose: 100 mg Documented by: Ertapenem (Ertapenem Consult Active) 1 ea N/A UD PRN PRN Reason: Consult Stop: 05/10/21 03:22 Ferrous Sulfate (Ferrous Sulfate 325 Mg Tab) 325 mg PO QAM [facility] Stop: 05/10/21 08:59 Last Admin: 04/12/21 07:20 Dose: 325 mg Documented by: Fluticasone/Vilanterol (Fluticasone/Vilanterol 100/25mcg 14 Puffs/Inhaler) 1 puffs INH DAILY ANDREA Stop: 05/10/21 08:59 Last Admin: 04/12/21 07:18 Dose: 1 puffs Documented by: Furosemide (Furosemide 40 Mg Tab) 40 mg PO 1700 ANDREA Stop: 05/10/21 16:59 Last Admin: 04/10/21 17:40 Dose: 40 mg Documented by: Furosemide (Furosemide 80 Mg Tab) 80 mg PO QAM ANDREA Stop: 05/10/21 08:59 Last Admin: 04/10/21 10:20 Dose: 80 mg Documented by: Glucagon (Glucagon For Inj 1 Mg Vial) 1 mg IM UD PRN; Protocol PRN Reason: Hypoglycemia Protocol Stop: 05/10/21 03:44 Glucose (Glucose 40% Gel 15 Gm Tube) 15 - 30 gm PO UD PRN; Protocol PRN Reason: Hypoglycemia Protocol Stop: 05/10/21 03:44 Glucose (Glucose 10 Tabs/Tube) 4 - 8 tabs PO UD PRN; Protocol PRN Reason: Hypoglycemia Protocol Stop: 05/10/21 03:44 Heparin Sodium (Porcine) (Heparin Sod 5,000 Unit/0.5 Ml Vial) 5,000 units SQ Q8 ANDREA Stop: 05/11/21 13:59 Last Admin: 04/12/21 12:25 Dose: Not Given Documented by: Ertapenem 1,000 mg/ Sodium (Chloride) 60 mls @ 100 mls/hr IV Q24H [facility]; Protocol Stop: 04/20/21 03:59 Last Infusion: 04/12/21 05:55 Dose: Infused Documented by: Hydrocortisone Sodium (Succinate 100 mg/ Syringe) 2 mls @ 4 mls/min IV Q8H [facility] Stop: 05/12/21 15:14 Insulin Aspart (Insulin Aspart 100 Units/Ml 3 Ml Pen) 0 units SC ACHS [facility] Stop: 05/10/21 03:59 Last Admin: 04/12/21 12:19 Dose: 2 units Documented by: Ipratropium [place] (Ipratropium Hfa Inhaler (Combivent Respimat P&T Subs)) 1 puffs INH QIDR [facility] Stop: 05/10/21 06:59 Ipratropium [place] (Ipratropium [place] Neb Soln 0.02% 2.5 Ml Vial) 0.5 mg INH Q6R PRN PRN Reason: SOB/wheezing Stop: 05/10/21 06:59 Last Admin: 04/12/21 13:07 Dose: 0.5 mg Documented by: Lactobacillus Acidoph/Casei/Rhamnos (Advanced Probiotic 1250 Mg Capsule) 2 cap PO QAM ANDREA Stop: 05/10/21 08:59 Last Admin: 04/12/21 07:20 Dose: 2 cap Documented by: Levalbuterol HCl (Levalbuterol 1.25mg/0.5ml Neb) 1.25 mg INH Q6R PRN PRN Reason: SOB/wheezing Stop: 05/10/21 06:59 Last Admin: 04/12/21 13:07 Dose: 1.25 mg Documented by: Lisinopril (Lisinopril 2.5 Mg Tab) 2.5 mg PO DAILY [facility] Stop: 05/10/21 08:59 Last Admin: 04/11/21 08:01 Dose: Not Given Documented by: Methimazole (Methimazole 5 Mg Tablet) 10 mg PO DAILY [facility] Stop: 05/10/21 08:59 Last Admin: 04/12/21 07:19 Dose: 10 mg Documented by: Miscellaneous (Zafirkulast~Order Awaiting Action) 1 ea N/A QS [facility] Stop: 05/10/21 07:59 Last Admin: 04/12/21 14:05 Dose: Not Given Documented by: Miscellaneous (Carbohydrates For Hypoglycemia ) 15 - 30 gm PO UD PRN PRN Reason: Hypoglycemia Treatment Stop: 05/10/21 03:44 Multivitamins (Multivitamin Tab) 1 tab PO QAM [facility] Stop: 05/10/21 08:59 Last Admin: 04/12/21 07:20 Dose: 1 tab Documented by: Nitroglycerin (Nitroglycerin Sl 0.4 Mg/Tab Tab) 0.4 mg SL UD PRN PRN Reason: Chest Pain Stop: 05/10/21 02:44 Ondansetron HCl (Ondansetron Inj 2 Mg/Ml 2 Ml Vial) 4 mg IV Q6H PRN PRN Reason: Nausea Stop: 05/10/21 02:44 Last Admin: 04/11/21 14:03 Dose: 4 mg Documented by: Pantoprazole Sodium (Pantoprazole 40 Mg Tab) 40 mg PO BID [facility] Stop: 05/10/21 08:59 Last Admin: 04/12/21 07:19 Dose: 40 mg Documented by: Polyethylene Glycol (Polyethylene (Miralax) 17 Gm Pack) 17 gm PO BID PRN PRN Reason: Constipation Stop: 05/10/21 02:44 Potassium Chloride (Potassium Chloride Crtab 20 Meq Tabcr) 20 meq PO DAILY ANDREA Stop: 05/10/21 08:59 Last Admin: 04/10/21 08:17 Dose: 20 meq Documented by: Promethazine HCl (Promethazine Hcl 25 Mg Tab) 25 mg PO Q6H PRN PRN Reason: nausea and vomiting Stop: 05/10/21 02:44 Last Admin: 04/11/21 00:22 Dose: 25 mg Documented by: Spironolactone (Spironolactone 12.5 Mg Tab) 12.5 mg PO DAILY [facility] Stop: 05/10/21 08:59 Last Admin: 04/10/21 08:17 Dose: 12.5 mg Documented by: Vitamin D (Cholecalciferol 1,000 Units 25 Mcg Tab) 1,000 units PO QAM [facility] Stop: 05/10/21 08:59 Last Admin: 04/12/21 07:20 Dose: 1,000 units Documented by:
[2021-04-12] MEDS: HYDROCORTISONE SOD 100 MG in SYRINGE 0 ML IV SCH (16:05)
[2021-04-12] MEDS: PROMETHAZINE HCL 25 MG TAB PO PRN (21:43)
[2021-04-12] MEDS: ATORVASTATIN 40 MG TAB PO SCH (21:44)
[2021-04-12] MEDS: BIMATOPROST 0.01% OP SOLN 2.5 ML BTL OP SCH (21:46)
[2021-04-12] MEDS ORDERED: INSULIN GLARGINE SOLOSTAR 100 UNITS/ML 3 ML PEN SC ONE (22:15)
[2021-04-13] MEDS: HYDROCORTISONE SOD 100 MG in SYRINGE 0 ML IV SCH ×4 (01:02→23:52)
[2021-04-13] MEDS: ONDANSETRON INJ 2 MG/ML 2 ML VIAL IV PRN ×2 (01:05→09:34)
[2021-04-13] MEDS: HYDROCODONE/ACETAMOPHEN 5/325MG TAB PO PRN ×2 (01:12→09:33)
[2021-04-13] MEDS: SODIUM CHLORIDE 0.9% 1000ML 1,000 ML IV SCH (01:53)
[2021-04-13] MEDS: HEPARIN SOD 5,000 UNIT/0.5 ML VIAL SQ SCH ×3 (02:43→20:32)
[2021-04-13] MEDS: ERTAPENEM SODIUM 1,000 MG in SODIUM CHLORIDE 0.9% 50 ML IV SCH (04:52)
[2021-04-13 08:11] LABS: Creatinine Clr Calc Pharmacy 48.4 ml/min; Est GFR (African American) 52.4 ml/min; Est GFR (Non-African American) 45.2 ml/min
[2021-04-13] MEDS: FERROUS SULFATE 325 MG TAB PO SCH (09:22)
[2021-04-13] MEDS: methIMAzole 5 MG TABLET PO SCH (09:22)
[2021-04-13] MEDS: ASPIRIN 81 MG ECTAB PO SCH (09:22)
[2021-04-13] MEDS: ADVANCED PROBIOTIC 1250 MG CAPSULE PO SCH (09:22)
[2021-04-13] MEDS: CHOLECALCIFEROL 1,000 UNITS 25 MCG TAB PO SCH (09:22)
[2021-04-13] MEDS: FLUTICASONE/VILANTEROL 100/25MCG 14 PUFFS/INHALER INH SCH (09:23)
[2021-04-13] MEDS: MULTIVITAMIN TAB PO SCH (09:23)
[2021-04-13] MEDS: BRINZOLAMIDE (AZOPT) OPS 10 ML BTL OPB SCH ×2 (09:23→20:33)
[2021-04-13] MEDS: DICYCLOMINE HCL 20 MG TAB PO SCH ×2 (09:23→20:34)
[2021-04-13] MEDS: PANTOprazole 40 MG TAB PO SCH ×2 (09:23→20:34)
[2021-04-13] MEDS: INSULIN ASPART 100 UNITS/ML 3 ML PEN SC SCH ×4 (09:40→20:33)
[2021-04-13] MEDS: DOCUSATE SODIUM 100 MG CAP PO SCH (09:43)
--- NOTE | 2021-04-13 11:49 | Hospitalist Progress Note ---
Date of Service April 13, 2021 Assessment & Plan (1) Adrenal insufficiency: Hypotension has resolved. Patient not on fluids as she declined them yesterday. Eating well. Ambulating independently. Malaise, weakness and abdominal symptoms persist, partly could be from significant constipation. SOB improved now and cold intolerance has resolved. Cont current hydrocortisone. Monitor glucose closely. May need insomnia therapy tonight. Started trial melatonin. (2) UTI due to extended-spectrum beta lactamase (ESBL) producing Escherichia coli: Bactrim given for suspected UTI, changed on admission 04/10 to to Invanz when culture came back positive for ESBL E. coli. Continue Invanz-last day 04/15. (3) Dyspnea: She has history of COPD/asthma and has been on home oxygen, 2 L during the day and 4 L at night. She is at her baseline. Current symptoms attributed to adrenal insufficiency. Improved per her report. (4) Hypotension: new hypotension likely secondary to adrenal insufficiency. Resolved. (5) JOSE DAVID (acute kidney injury): Creatinine elevated to 1.4 on admission likely secondary to Bactrim use, dehydration in setting of infection and ongoing diuretic use. Holding diuretics and lisinopril at this time. Creatinine is 1.13 today, so generally improved. Continue to trend. (6) Chronic respiratory failure with hypoxia and hypercapnia: 2/2 COPD. Has been on home oxygen, 2 L via nasal cannula during the day and 4 L at night (7) COPD (chronic obstructive pulmonary disease): Appears stable without evidence of wheezing, sputum changes or coughing. There is some dyspnea however she appears to be improved. She did receive 1 dose of steroids in the ER approximately 24 hours ago and has remained on scheduled bronchodilators since that time. Bronchodilators changed to PRN. (8) Chronic HFrEF (heart failure with reduced ejection fraction): Known h/o NICM-recent med optimization after recent hospitalization one month ago. Appears euvolemic to dry. Holding diuretics at this time per plan above. Continue daily weights, low-sodium diet, strict ins and outs. (9) Chronic atrial fibrillation: Controlled with Coreg and digoxin. Holding Coreg at this time secondary to hypotension. Continue digoxin therapy. check dig level given current symptoms. Rate is 68 bpm. Patient denies any palpitations. Not on anticoagulation. Follo wed by [facility] cardiology. (10) JORDAN (obstructive sleep apnea): Does not use any CPAP and/or BiPAP (11) Diabetes mellitus, type 2: controlled on SSI inpatient. Recent A1C is 7.1. Cont correction factor insulin with carb coverage for now. Added glargine and tightened scale with added steroids in anticipation of hyperglycemia. (12) DVT prophylaxis: Heparin Full Code Dispo-uncertain at this time. Remains on telemetry DO Min Duarte Hospitalist Admission and Anticipated Discharge Date Admission Date: April 10, 2021 Subjective Mrs. Harrington is an 80-year-old female with a known history of heart failure and persistent atrial fibrillation who also has chronic hypoxic respiratory failure secondary to COPD who presented with worsening shortness of breath for the past 2 days. Creatinine was 1.45 on admission with a baseline of 0.8-0.9. She was admitted with an ESBL E. coli UTI and was transitioned from Bactrim as an outpatient to Invanz. She has been hypotensive despite fluids and antibiotics. Concern for adrenal insufficiency developed and her random cortisol was low. Started on hydrocortisone IV 04/12. Generally she still reports feeling generalized malaise with intermittent abdominal discomfort, weakness, fatigue, lethargy. Tremulousness persists but is improved. She is getting up and moving around the room. Cold intolerance has resolved and she reports her breathing feels better. All urinary symptoms have resolved. She is tolerating PO. No BM in 5 days. Scheduled Miralax. Didn't sleep well last night, possibly as a result of the steroids. Review of Systems Review of Systems: All systems reviewed & are unremarkable except as noted in Subjective Physical Exam Physical Exam: CONSTITUTIONAL: obese, vitals as above, generally NAD but ill- appearing, EYES: normal conjunctivae, no scleral icterus ENT: external ear and nose normal, mucous membranes appear dry RESPIRATORY: clear to auscultation bilaterally, no crackles, rales or wheezes, normal respiratory effort CARDIOVASCULAR: irregular rate and irregular rhythm, S1 and 2 heard without murmurs, gallops or rubs, no JVD, no peripheral edema GASTROINTESTINAL: soft, generalized discomfort, nontender, nondistended, no guarding MUSCULOSKELETAL: strength 5/5 throughout, head is normocephalic and atraumatic SKIN: warm and dry NEUROLOGIC: CN 2-12 grossly intact, no sensory deficit, normal cognition, normal speech, no gross focal deficits. PSYCHIATRIC: alert cooperative and oriented to person, place and time. Results & Data Results & Data ([facility]) Vital Signs (Past 12 Hours) Vital Signs Temp Pulse Pulse Resp BP BP Pulse Ox 04/13/21 07:52 36.6 C 68 16 109/67 99 04/13/21 07:34 65 04/13/21 04:05 36.7 C 64 18 115/79 95 04/13/21 03:00 04/13/21 00:46 36.6 C 68 18 107/63 96 Pulse Ox 04/13/21 07:52 04/13/21 07:34 04/13/21 04:05 04/13/21 03:00 96 04/13/21 00:46 Laboratory Results BMP 04/13/21 06:53 Creatinine 1.13 Medications Administered Current Inpatient Medications Acetaminophen (Acetaminophen 325 Mg Tab) 650 mg PO Q4H PRN PRN Reason: Pain or Fever Stop: 05/10/21 02:44 Hydrocodone Bitart/Acetaminophen (Hydrocodone/Acetamophen 5/325mg Tab) 1 tab PO Q6H PRN PRN Reason: Pain Stop: 04/24/21 02:44 Last Admin: 04/13/21 09:33 Dose: 1 tab Documented by: Albuterol (Albuterol Hfa 8 Gm Inhaler) 2 puffs INH QID PRN PRN Reason: Shortness Of Breath Stop: 05/10/21 02:44 Albuterol (Albuterol Hfa 8 Gm Inhaler) 1 puffs INH QIDR PRN PRN Reason: SOB/wheezing Stop: 05/10/21 06:59 Aspirin (Aspirin 81 Mg Ectab) 81 mg PO DAILY ANDREA Stop: 05/10/21 08:59 Last Admin: 04/13/21 09:22 Dose: 81 mg Documented by: Atorvastatin Calcium (Atorvastatin 40 Mg Tab) 40 mg PO HS ANDREA Stop: 05/10/21 20:59 Last Admin: 04/12/21 21:44 Dose: 40 mg Documented by: Bimatoprost (Bimatoprost 0.01% Op Soln 2.5 Ml Btl) 1 drops OP HS ANDREA Stop: 05/10/21 20:59 Last Admin: 04/12/21 21:46 Dose: 1 drops Documented by: Brinzolamide (Brinzolamide (Azopt) Ops 10 Ml Btl) 1 drops OPB BID ANDREA Stop: 05/10/21 08:59 Last Admin: 04/13/21 09:23 Dose: 1 drops Documented by: Carvedilol (Carvedilol 6.25 Mg Tab) 6.25 mg PO BID ANDREA Stop: 05/10/21 08:59 Last Admin: 04/11/21 07:56 Dose: Not Given Documented by: Dextrose (Dextrose 50% 50 Ml Syringe) 25 - 50 ml IV UD PRN; Protocol PRN Reason: Hypoglycemia Protocol Stop: 05/10/21 03:44 Dicyclomine HCl (Dicyclomine Hcl 20 Mg Tab) 20 mg PO BID [facility] Stop: 05/10/21 08:59 Last Admin: 04/13/21 09:23 Dose: 20 mg Documented by: Digoxin (Digoxin 0.125 Mg Tab) 0.125 mg PO [id number] [facility] Stop: 05/11/21 15:59 Last Admin: 04/11/21 16:22 Dose: 0.125 mg Documented by: Docusate Sodium (Docusate Sodium 100 Mg Cap) 100 mg PO QAM [facility] Stop: 05/10/21 08:59 Last Admin: 04/13/21 09:43 Dose: 100 mg Documented by: Ertapenem (Ertapenem Consult Active) 1 ea N/A UD PRN PRN Reason: Consult Stop: 05/10/21 03:22 Ferrous Sulfate (Ferrous Sulfate 325 Mg Tab) 325 mg PO QAM [facility] Stop: 05/10/21 08:59 Last Admin: 04/13/21 09:22 Dose: 325 mg Documented by: Fluticasone/Vilanterol (Fluticasone/Vilanterol 100/25mcg 14 Puffs/Inhaler) 1 puffs INH DAILY ANDREA Stop: 05/10/21 08:59 Last Admin: 04/13/21 09:23 Dose: 1 puffs Documented by: Furosemide (Furosemide 40 Mg Tab) 40 mg PO 1700 [facility] Stop: 05/10/21 16:59 Last Admin: 04/10/21 17:40 Dose: 40 mg Documented by: Furosemide (Furosemide 80 Mg Tab) 80 mg PO QAM [facility] Stop: 05/10/21 08:59 Last Admin: 04/10/21 10:20 Dose: 80 mg Documented by: Glucagon (Glucagon For Inj 1 Mg Vial) 1 mg IM UD PRN; Protocol PRN Reason: Hypoglycemia Protocol Stop: 05/10/21 03:44 Glucose (Glucose 40% Gel 15 Gm Tube) 15 - 30 gm PO UD PRN; Protocol PRN Reason: Hypoglycemia Protocol Stop: 05/10/21 03:44 Glucose (Glucose 10 Tabs/Tube) 4 - 8 tabs PO UD PRN; Protocol PRN Reason: Hypoglycemia Protocol Stop: 05/10/21 03:44 Heparin Sodium (Porcine) (Heparin Sod 5,000 Unit/0.5 Ml Vial) 5,000 units SQ Q8 ANDREA Stop: 05/11/21 13:59 Last Admin: 04/13/21 02:43 Dose: Not Given Documented by: Ertapenem 1,000 mg/ Sodium (Chloride) 60 mls @ 100 mls/hr IV Q24H [facility]; Protocol Stop: 04/20/21 03:59 Last Infusion: 04/13/21 05:30 Dose: Infused Documented by: Hydrocortisone Sodium (Succinate 100 mg/ Syringe) 2 mls @ 4 mls/min IV Q8H [facility] Stop: 05/12/21 15:59 Last Admin: 04/13/21 09:34 Dose: 4 mls/min Documented by: Insulin Aspart (Insulin Aspart 100 Units/Ml 3 Ml Pen) 0 units SC ACHS [facility] Stop: 05/10/21 03:59 Last Admin: 04/13/21 09:40 Dose: 9 units Documented by: Ipratropium [place] (Ipratropium Hfa Inhaler (Combivent Respimat P&T Subs)) 1 puffs INH QIDR [facility] Stop: 05/10/21 06:59 Ipratropium [place] (Ipratropium [place] Neb Soln 0.02% 2.5 Ml Vial) 0.5 mg INH Q6R PRN PRN Reason: SOB/wheezing Stop: 05/10/21 06:59 Last Admin: 04/12/21 13:07 Dose: 0.5 mg Documented by: Lactobacillus Acidoph/Casei/Rhamnos (Advanced Probiotic 1250 Mg Capsule) 2 cap PO QAM [facility] Stop: 05/10/21 08:59 Last Admin: 04/13/21 09:22 Dose: 2 cap Documented by: Levalbuterol HCl (Levalbuterol 1.25mg/0.5ml Neb) 1.25 mg INH Q6R PRN PRN Reason: SOB/wheezing Stop: 05/10/21 06:59 Last Admin: 04/12/21 13:07 Dose: 1.25 mg Documented by: Lisinopril (Lisinopril 2.5 Mg Tab) 2.5 mg PO DAILY [facility] Stop: 05/10/21 08:59 Last Admin: 04/11/21 08:01 Dose: Not Given Documented by: Melatonin (Melatonin 3 Mg Tab) 3 mg PO HS [facility] Stop: 05/13/21 20:59 Methimazole (Methimazole 5 Mg Tablet) 10 mg PO DAILY [facility] Stop: 05/10/21 08:59 Last Admin: 04/13/21 09:22 Dose: 10 mg Documented by: Miscellaneous (Zafirkulast~Order Awaiting Action) 1 ea N/A QS [facility] Stop: 05/10/21 07:59 Last Admin: 04/13/21 09:24 Dose: Not Given Documented by: Miscellaneous (Carbohydrates For Hypoglycemia ) 15 - 30 gm PO UD PRN PRN Reason: Hypoglycemia Treatment Stop: 05/10/21 03:44 Multivitamins (Multivitamin Tab) 1 tab PO QAM [facility] Stop: 05/10/21 08:59 Last Admin: 04/13/21 09:23 Dose: 1 tab Documented by: Nitroglycerin (Nitroglycerin Sl 0.4 Mg/Tab Tab) 0.4 mg SL UD PRN PRN Reason: Chest Pain Stop: 05/10/21 02:44 Ondansetron HCl (Ondansetron Inj 2 Mg/Ml 2 Ml Vial) 4 mg IV Q6H PRN PRN Reason: Nausea Stop: 05/10/21 02:44 Last Admin: 04/13/21 09:34 Dose: 4 mg Documented by: Pantoprazole Sodium (Pantoprazole 40 Mg Tab) 40 mg PO BID [facility] Stop: 05/10/21 08:59 Last Admin: 04/13/21 09:23 Dose: 40 mg Documented by: Polyethylene Glycol (Polyethylene (Miralax) 17 Gm Pack) 17 gm PO BID PRN PRN Reason: Constipation Stop: 05/10/21 02:44 Polyethylene Glycol (Polyethylene (Miralax) 17 Gm Pack) 17 gm PO BID17 [facility] Stop: 05/13/21 11:39 Potassium Chloride (Potassium Chloride Crtab 20 Meq Tabcr) 20 meq PO DAILY [facility] Stop: 05/10/21 08:59 Last Admin: 04/10/21 08:17 Dose: 20 meq Documented by: Promethazine HCl (Promethazine Hcl 25 Mg Tab) 25 mg PO Q6H PRN PRN Reason: nausea and vomiting Stop: 05/10/21 02:44 Last Admin: 04/12/21 21:43 Dose: 25 mg Documented by: Spironolactone (Spironolactone 12.5 Mg Tab) 12.5 mg PO DAILY [facility] Stop: 05/10/21 08:59 Last Admin: 04/10/21 08:17 Dose: 12.5 mg Documented by: Vitamin D (Cholecalciferol 1,000 Units 25 Mcg Tab) 1,000 units PO QAM [facility] Stop: 05/10/21 08:59 Last Admin: 04/13/21 09:22 Dose: 1,000 units Documented by:
[2021-04-13] MEDS ORDERED: GLYCERIN ADULT 12 SUPP/BOX SUPP PR PRN (11:51)
[2021-04-13] MEDS: POLYETHYLENE (MIRALAX) 17 GM PACK PO SCH ×2 (12:18→17:16)
[2021-04-13] MEDS: DIGOXIN 0.125 MG TAB PO SCH (17:16)
[2021-04-13] MEDS: ATORVASTATIN 40 MG TAB PO SCH (20:33)
[2021-04-13] MEDS: MELATONIN 3 MG TAB PO SCH (20:37)
[2021-04-13] MEDS: BIMATOPROST 0.01% OP SOLN 2.5 ML BTL OP SCH (20:38)
[2021-04-14] MEDS: ERTAPENEM SODIUM 1,000 MG in SODIUM CHLORIDE 0.9% 50 ML IV SCH (03:42)
[2021-04-14] MEDS: HEPARIN SOD 5,000 UNIT/0.5 ML VIAL SQ SCH ×4 (05:00→21:19)
[2021-04-14] MEDS: HYDROCODONE/ACETAMOPHEN 5/325MG TAB PO PRN ×2 (07:46→19:14)
[2021-04-14] MEDS: ONDANSETRON INJ 2 MG/ML 2 ML VIAL IV PRN ×2 (07:47→17:36)
[2021-04-14] MEDS: HYDROCORTISONE SOD 100 MG in SYRINGE 0 ML IV SCH ×2 (08:41→16:22)
[2021-04-14] MEDS: ASPIRIN 81 MG ECTAB PO SCH (08:41)
[2021-04-14] MEDS: CHOLECALCIFEROL 1,000 UNITS 25 MCG TAB PO SCH (08:41)
[2021-04-14] MEDS: ADVANCED PROBIOTIC 1250 MG CAPSULE PO SCH (08:42)
[2021-04-14] MEDS: FLUTICASONE/VILANTEROL 100/25MCG 14 PUFFS/INHALER INH SCH (08:42)
[2021-04-14] MEDS: FERROUS SULFATE 325 MG TAB PO SCH (08:42)
[2021-04-14] MEDS: DICYCLOMINE HCL 20 MG TAB PO SCH ×2 (08:42→21:15)
[2021-04-14] MEDS: PANTOprazole 40 MG TAB PO SCH ×2 (08:42→21:14)
[2021-04-14] MEDS: methIMAzole 5 MG TABLET PO SCH (08:42)
[2021-04-14] MEDS: MULTIVITAMIN TAB PO SCH (08:42)
[2021-04-14] MEDS: POLYETHYLENE (MIRALAX) 17 GM PACK PO SCH ×2 (08:44→16:21)
[2021-04-14] MEDS: BRINZOLAMIDE (AZOPT) OPS 10 ML BTL OPB SCH ×2 (08:44→21:09)
[2021-04-14] MEDS: DOCUSATE SODIUM 100 MG CAP PO SCH (08:56)
[2021-04-14] MEDS: INSULIN ASPART 100 UNITS/ML 3 ML PEN SC SCH ×4 (08:59→21:08)
[2021-04-14 11:07] LABS: Basophils # (auto) 0.01 K/uL (0-0.2); Basophils % (auto) 0.1 %; Eosinophils # (auto) 0.01 K/uL (0-0.5); Eosinophils % (auto) 0.1 %; Hematocrit (blood only) 35.5 % (37-47); Hemoglobin 11.3 g/dL (12.0-16.0); Immature Granulocytes # (auto) 0.15 K/uL (0.00-0.02); Immature Granulocytes % (auto) 0.8 %; Lymphocytes # (auto) 2.71 K/uL (1.2-3.4); Lymphocytes % (auto) 14.1 %; Mean Corpuscular Hemoglobin 29.4 pg (25-34); Mean Corpuscular Volume 92.4 fL (80-100); Mean Platelet Volume 9.6 fL (7.4-10.4); Monocytes # (auto) 1.53 K/uL (0.11-0.59); Monocytes % (auto) 7.9 %; Neutrophils # (auto) 14.87 K/uL (1.4-6.5); Platelet Count 379 K/uL (130-400); RDW Coefficient of Variation 14.5 % (11.5-14.5); RDW Standard Deviation 49.1 fL (36.4-46.3); Red Blood Count 3.84 M/uL (4.2-5.4); White Blood Count 19.28 K/uL (4.8-10.8)
[2021-04-14 11:08] LABS: Mean Corpuscular Hgb Conc 31.8 g/dL (32-36)
[2021-04-14 11:29] LABS: Albumin Level 3.1 gm/dl (3.4-5.0); BUN Creatinine Ratio 21.4 (10-20); Calcium 9.2 mg/dl (8.5-10.1); Creatinine Clr Calc Pharmacy 58.8 ml/min; Est GFR (African American) 66.3 ml/min; Est GFR (Non-African American) 57.2 ml/min; Potassium 3.9 mmol/L (3.5-5.1)
[2021-04-14 11:33] LABS: Albumin Globulin Ratio 0.8 (0.9-2); Bilirubin,Total 0.2 mg/dl (0.2-1); Total Protein 7.1 gm/dl (6.4-8.2)
--- NOTE | 2021-04-14 11:56 | Cardiology Consultation ---
Date of Consultation April 14, 2021 Assessment & Plan (1) Hypotension: (2) Adrenal insufficiency: (3) Chronic atrial fibrillation: (4) Chronic HFrEF (heart failure with reduced ejection fraction): (5) JOSE DAVID (acute kidney injury): (6) UTI due to extended-spectrum beta lactamase (ESBL) producing Escherichia coli: (7) Hyponatremia: (8) Subclinical hyperthyroidism: (9) NICM (nonischemic cardiomyopathy): (10) JORDAN (obstructive sleep apnea): (11) Chronic respiratory failure with hypoxia and hypercapnia: (12) Asthma: (13) COPD (chronic obstructive pulmonary disease): (14) Diabetes mellitus, type 2: Given her persistent hypotension despite treatment for adrenal insufficiency concern is for ongoing infection not covered by current antibiotic treatment. Recommend 1 L of IV fluids normal saline at this time, patient previously refusing fluids to avoid urinary frequency, now agreeable after my discussion today. 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 Obviously, ongoing infection would preclude permanent pacemaker placement. Currently she is clinically stable but should she deteriorate would recommend initiation of dopamine, consideration for temporary pacer may also be given. Does have watchman device in place and now on anticoagulation. Historically has not followed with our cardiology practice and was first seen after admission here in February, previously followed with Dr. Gutierrez pinto and electrophysiology in [place]. 2D echocardiogram repeated today shows no pericardial effusion Recommend monitoring in the medical intensive care unit or surgical intensive care unit should hemodynamic support be necessary. History of Present Illness Reason for Consultation: Hypotension and bradycardia Requesting Physician: Dr. Begum Attending Physician: Ruby Begum, History of Present Illness It was my pleasure to see Mrs. Harrington in cardiac consultation today April 14, 2021. She is a very pleasant yet medically complex 80-year-old woman who was originally admitted to [facility] on 04/10/2021 after presenting with complaints of dyspnea on exertion, abdominal pain and outpatient findings of urinary tract infection. She has been admitted to telemetry has been having ongoing issues with hypotension and treatment for adrenal insufficiency has been initiated. Despite this, her blood pressures remain relatively hypotensive despite all antihypertensive medications being held. She is also having episodes of bradycardia on telemetry with significant periods of rates in the 30s. Clinically she states that she feels fatigued. She states that she does notice much improvement of her energy level since admission. Has not been ambulating often not sure if she still dyspneic with exertion. At rest denies chest pain, palpitations, lightheadedness, dizziness or syncope. No symptoms correlating with bradycardic events on monitor. Past medical history as per most recent outpatient cardiology clinic note: 1. Chronic heart failure with reduced ejection fraction -compensated with Class 3 functional capacity 2. Nonischemic cardiomyopathy, EF 40 to 45%. -cardiac catheterization performed November 2020 in [place] demonstrating mild nonobstructive coronary disease. 3. Chronic rate controlled atrial fibrillation status post watchman device implantation. [id number] score of 5 4. Severe oxygen-dependent COPD with chronic hypercapnia 5. History of severe GI bleed requiring transfusion, not on blood thinner at that time. 6. History of subclinical hyperthyroidism Allergies Allergy/AdvReac Type Severity Reaction Status Date / Time salmon oil Allergy Severe HIVES-REDDENED Verified 04/09/21 23:01 ALL OVER Iodinated Contrast Media Allergy Intermediate HIVES-GI Verified 04/09/21 23:01 SYMPTOMS valsartan Allergy Intermediate FAST HEART Verified 04/09/21 23:01 BEAT bupropion AdvReac Mild GI SYMPTOMS Verified 04/09/21 23:01 enalapril AdvReac Mild GI SYMPTOMS Verified 04/09/21 23:01 escitalopram AdvReac Mild GI SYMPTOMS Verified 04/09/21 23:01 metoprolol AdvReac Mild LOWERS Verified 04/09/21 23:01 PULSE RATE verapamil AdvReac Mild GI UPSET, Verified 04/09/21 23:01 fast heart rate Home Medications Medication Instructions Recorded Confirmed Type atorvastatin 40 mg PO HS 06/23/19 04/09/21 History cholecalciferol (vitamin D3) 1,000 unit PO QAM 06/23/19 04/09/21 History [Vitamin D3] docusate sodium 100 mg PO QAM 06/23/19 04/09/21 History omeprazole 20 mg PO BID 06/23/19 04/09/21 History Lumigan 1 drp OPB HS 09/25/19 04/09/21 History albuterol sulfate 2.5 mg INHALATION BID PRN 09/25/19 04/09/21 History brinzolamide [Azopt] 1 drp OPB BID 09/25/19 04/09/21 History polyethylene glycol 3350 [Miralax] 17 g PO BID PRN 09/25/19 04/09/21 History ferrous sulfate 325 mg (65 mg 325 mg PO QAM tab 02/23/20 04/09/21 History iron) tablet glimepiride 4 mg tablet 2 mg PO QAM tab 02/23/20 04/09/21 History multivitamin 1 tab PO QAM 06/02/20 04/09/21 History dicyclomine 20 mg PO BID 30 Days #60 tab 06/16/20 04/09/21 Rx promethazine 25 mg PO Q6H PRN #60 tab 06/16/20 04/09/21 Rx Probiotic 3,000 mmu cells PO QAM 07/28/20 04/09/21 History hydrocodone-acetaminophen 1 tab PO Q6H PRN 07/28/20 04/09/21 History zafirlukast 20 mg tablet 20 mg PO QAM 09/11/20 04/09/21 History albuterol sulfate 90 mcg/actuation 2 puff INHALATION QID PRN #6.7 g 10/30/20 04/09/21 Rx aerosol inhaler aspirin 81 mg tablet,delayed 81 mg PO DAILY 02/05/21 04/09/21 History release lisinopril 2.5 mg tablet 2.5 mg PO DAILY 02/05/21 04/09/21 History carvedilol 6.25 mg PO BID #60 tab 03/02/21 04/09/21 Rx furosemide 80 mg PO QAM #30 tab 03/02/21 04/09/21 Rx spironolactone 12.5 mg PO DAILY #30 tab 03/02/21 04/09/21 Rx methimazole 10 mg tablet 10 mg PO DAILY 03/07/21 04/09/21 History digoxin [Digitek] 0.125 mg PO 4XWK 04/09/21 04/09/21 History fluticasone propion-salmeterol 2 puff INHALATION BID 04/09/21 04/09/21 History [Advair HFA] furosemide 40 mg PO QPM 04/09/21 04/09/21 History ipratropium-albuterol [Combivent 1 puff INHALATION QID 04/09/21 04/09/21 History Respimat] potassium chloride [Klor-Con M20] 20 meq PO DAILY 04/09/21 04/09/21 History sulfamethoxazole-trimethoprim 1 tab PO DAILY 04/09/21 04/09/21 History Patient History Medical History Acute blood loss anemia Acute decompensated heart failure Acute on chronic 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 Acute on chronic respiratory failure with hypoxia and hypercapnia Aortic valve stenosis, mild Asthma Chronic diastolic CHF (congestive heart failure) Chronic respiratory failure with hypoxia and hypercapnia COPD (chronic obstructive pulmonary disease) Diabetes mellitus, type 2 Diverticulitis Esophageal reflux Glaucoma of both eyes Hyperlipidemia Hypertension Lower GI bleed On home oxygen therapy 2L N/C at all times and 4 L N/C at night Sleep apnea Subclinical hyperthyroidism Subepithelial mass of stomach Surgical History H/O colonoscopy "04/2014 - diverticular disease throughout colon, internal hemorrhoids, polyp removed" History of appendectomy History of cardiac cath "YEARS AGO"NO BLOCKAGES/NO STENTS-F/U DR THOMSON History of cholecystectomy History of dilatation and curettage History of esophagogastroduodenoscopy (EGD) "04/2014 - normal" History of incisional hernia repair History of tooth extraction all teeth Hx of small bowel obstruction "11/2017 - Se[facility] - surgical intervention" Nausea and vomiting after administration of anesthetic agent Presence of Watchman left atrial appendage closure device 11/2019 @ [facility] Dr. 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 No acute distress. HEENT: Normocephalic, atraumatic. Pupils equal, round and reactive to light and accommodation. Extraocular muscles are intact. Anicteric sclera. Moist mucous membranes. Neck: No JVD. No bruit. Cardiovascular: irregularly irregular, unable to appreciate murmur, rub or gallop. Pulmonary: Clear to auscultation bilaterally. No rales, rhonchi, or wheezing. Abdomen: Bowel sounds x 4, soft. No rebound, guarding or tenderness. No organomegaly. Extremities: No clubbing, cyanosis or edema. +2 pedal pulses bilaterally. Skin: Warm and dry. Results & Data ([facility]) Vital Signs (Past 12 Hours) Vital Signs Temp Pulse Pulse Resp BP BP Pulse Ox 04/14/21 08:02 36.5 C 59 L 18 111/57 L 97 04/14/21 07:00 56 L 04/14/21 03:42 36.7 C 52 L 16 95/49 L 95 04/13/21 23:53 36.8 C 68 18 102/65 98 Diagnostic Findings Hospitalized Nov 2020 in [place]. Right and left cardiac catheterization performed during hospitalization demonstrating mild nonobstructive coronary disease, nonischemic cardiomyopathy with ejection fraction of 35-40%, and no pulmonary hypertension.
--- NOTE | 2021-04-14 12:00 | XRay Report ---
TWO VIEW CHEST CLINICAL HISTORY: Hypotension. FINDINGS: PA and lateral chest radiographs are compared to study dated 04/09/2021. The heart is enlarg ed noting atherosclerotic calcification of the thoracic aorta. The pulmonary vasculature is nonconges lucho. Postoperative change is noted in the mediastinum. Chronic interstitial thickening is similar to previous. There is bibasilar atelectasis. No airspace consolidation or pleural effusion is identified . There is no pneumothorax. The skeletal structures are osteopenic. The bony thorax appears intact. IMPRESSION: Cardiomegaly with no active disease in the chest. ACT 112: Negative or not required by law. Electronically signed by: Pepito Guillen M.D. 04/14/2021 11:59 AM
--- NOTE | 2021-04-14 12:02 | XRay Report ---
KUB CLINICAL HISTORY: Abdominal discomfort. FINDINGS: 2 AP supine abdominal radiographs are correlated with abdominal CT dated 07/28/2020. There is a nonobstructed abdominal bowel gas pattern. Moderate to severe constipation is seen throughout th e colon. No evidence of intraperitoneal free air is seen on these supine images. There are no abnorma l abdominal calcifications. There is atherosclerotic calcification of the abdominal aorta. The skelet al structures are osteopenic and appear intact. There is moderate to advanced lumbosacral spondylosis . Sclerotic changes also noted in the sacroiliac joints and pubic symphysis. IMPRESSION: Moderate to severe constipation. Electronically signed by: Pepito Guillen M.D. 04/14/2021 12:00 PM
[2021-04-14] MEDS ORDERED: SODIUM CHLORIDE 0.9% 1000ML 1,000 ML IV ONE (12:17)
[2021-04-14] MEDS ORDERED: predniSONE 20 MG TAB PO STA (12:28)
[2021-04-14] MEDS: FLUDROCORTISONE ACETATE 0.1 MG TAB PO SCH (12:44)
[2021-04-14] MEDS ORDERED: diphenhydrAMINE Capsule 25 MG CAP PO SCH (12:45)
--- NOTE | 2021-04-14 13:01 | Hospitalist Progress Note ---
Date of Service April 14, 2021 Assessment & Plan (1) UTI due to extended-spectrum beta lactamase (ESBL) producing Escherichia coli: Bactrim given for suspected UTI, changed on admission 04/10 to to Invanz when culture came back positive for ESBL E. coli. Continue Invanz for now pending clinical improvement. (2) Bradycardia: Some nausea that has been persistent prior to the bradycardia and is likely unrelated. No lightheadedness or other symptoms, however, heart rate trend decreasing overnight starting around midnight where her average HR is in the 30s. Cardiology consulted. Repeat echo. IVF started. Sepsis evaluation as above. Consider dopamine support if needed. (3) Adrenal insufficiency: Hypotension improved on steroids initially but has now returned overnight. Associated with bradycardia into the 30s despite no beta-blockade. Added florinef for mineralocorticoid support. Patient originally declined fluids but getting them now. Eating well. Ambulating independently. Malaise, weakness and abdominal symptoms persist despite having a BM. SOB improved now and cold intolerance has resolved. Cont current hydrocortisone. Monitor glucose closely. May need insomnia therapy tonight. Started trial melatonin. (4) Abdominal discomfort: Intermittent abdominal discomfort for days. Had constipation which is resolved, yet this persists. Then thought secondary to adrenal insufficiency but also not improved with replacement. Now there seems to be some focality to her exam, so will order CT with IV contrast to evaluate for cause. Prepped with prednisone/benadryl for noted IV contrast allergy. (5) Dyspnea: She has history of COPD/asthma and has been on home oxygen, 2 L during the day and 4 L at night. She is at her baseline. Current symptoms attributed to adrenal insufficiency. Improved per her report. (6) Hypotension: Hypotension thought secondary to adrenal insufficiency, and improved, now more hypotensive overnight along with bradycardic--possible worsening adrenal insufficiency, ?developing sepsis. Adding IVF, repeat blood cultures. Looking to rule out a perinephric abscess. Lactate and procalcitonin ordered. Will continue with Invanz for monotherapy for now. Her elevated WBC 19K is likely secondary to steroids over the past two days. (7) JOSE DAVID (acute kidney injury): Creatinine elevated to 1.4 on admission likely secondary to Bactrim use, dehydration in setting of infection and ongoing diuretic use. Resolved to baseline after holding diuretics and lisinopril. (8) Chronic respiratory failure with hypoxia and hypercapnia: 2/2 COPD. Appears stable, no wheezing or worsening hypoxia or SOB. Has been on home oxygen, 2 L via nasal cannula during the day and 4 L at night (9) COPD (chronic obstructive pulmonary disease): Appears stable without evidence of wheezing, sputum changes or coughing. There is some dyspnea however she appears to be improved. She did receive 1 dose of steroids in the ER approximately 24 hours ago and has remained on scheduled bronchodilators since that time. Bronchodilators changed to PRN. (10) Chronic HFrEF (heart failure with reduced ejection fraction): Known h/o NICM-recent med optimization after recent hospitalization one month ago. Holding diuretics at this time per plan above. Continue daily weights, low-sodium diet, strict ins and outs. Fluids as above. (11) Chronic atrial fibrillation: Controlled with Coreg and digoxin. Holding Coreg at this time secondary to hypotension and bradycardia. Continue digoxin therapy-low level checked 04/13. Not on anticoagulation. Followed by [facility] cardiology. (12) JORDAN (obstructive sleep apnea): Does not use any CPAP and/or BiPAP (13) Diabetes mellitus, type 2: controlled on SSI inpatient. Recent A1C is 7.1. Cont correction factor insulin with carb coverage for now. Added glargine and tightened scale with added steroids in anticipation of hyperglycemia. (14) DVT prophylaxis: Heparin Full Code Dispo-transfer to PCU. [facility] Admission and Anticipated Discharge Date Admission Date: April 10, 2021 Subjective Mrs. Harrington is an 80-year-old female with a known history of heart failure and persistent atrial fibrillation who also has chronic hypoxic respiratory failure secondary to COPD who presented with worsening shortness of breath for the past 2 days. Creatinine was 1.45 on admission with a baseline of 0.8-0.9. This i mproved closer to baseline with holding her diuretics and lisinopril and with some fluids that were given. She was admitted with an ESBL E. coli UTI and was transitioned from Bactrim as an outpatient to Invanz. She was hypotensive despite fluids and antibiotics. Concern for adrenal insufficiency developed and her random cortisol was low. Started on hydrocortisone IV 04/12. Still reporting a generalized abdominal discomfort that is intermittent, having weakness, fatigue. Tremulousness is better. She is eating full meals without issue and keeping them down. She is on laxatives and reports a BM this morning that was normal. She denies SOB. Despite holding Coreg, diuretics and lisinopril overnight she was hypotensive and bradycardic with a decreased heart rate into 30s on average since midnight. Cardiology consulted, contacted daughter Stephani by phone who asked me to call Kaci who wasn't available. Transfer to PCU. Patient is a confirmed full code. Review of Systems Review of Systems: All systems reviewed & are unremarkable except as noted in Subjective Physical Exam Physical Exam: CONSTITUTIONAL: obese, vitals as above, generally NAD but ill- appearing, fatigued EYES: normal conjunctivae, no scleral icterus ENT: external ear and nose normal RESPIRATORY: clear to auscultation bilaterally, no crackles, rales or wheezes, normal respiratory effort CARDIOVASCULAR: irregular rate and irregular rhythm, S1 and 2 heard without murmurs, gallops or rubs, no JVD, no peripheral edema GASTROINTESTINAL: soft, LUQ pain, suprapubic tenderness, no distension MUSCULOSKELETAL: strength 5/5 throughout, head is normocephalic and atraumatic SKIN: warm and dry NEUROLOGIC: CN 2-12 grossly intact, no sensory deficit, normal cognition, normal speech, no gross focal deficits PSYCHIATRIC: alert cooperative and oriented to person, place and time Results & Data Results & Data ([facility]) Vital Signs (Past 12 Hours) Vital Signs Temp Pulse Pulse Resp BP BP Pulse Ox 04/14/21 12:31 37.1 C 63 20 116/60 94 04/14/21 11:54 56 L 18 95 04/14/21 08:02 36.5 C 59 L 18 111/57 L 97 04/14/21 07:00 56 L 04/14/21 03:42 36.7 C 52 L 16 95/49 L 95 Laboratory Results Short CBC 04/14/21 Range/Units 10:59 WBC 19.28 H (4.8-10.8) K/uL Hgb 11.3 L (12.0-16.0) g/dL Hct 35.5 L (37-47) % Plt Count 379 (130-400) K/uL BMP 04/14/21 10:59 Sodium 138 Potassium 3.9 Chloride 104 Carbon Dioxide 32 BUN 20 H Creatinine 0.93 Glucose 175 H Calcium 9.2 Liver Function 04/14/21 Range/Units 10:59 Total Bilirubin 0.2 (0.2-1) mg/dl AST 7 L (15-37) U/L ALT 12 (12-78) U/L Alkaline Phosphatase 107 (45-117) U/L Albumin 3.1 L (3.4-5.0) gm/dl Medications Administered Current Inpatient Medications Acetaminophen (Acetaminophen 325 Mg Tab) 650 mg PO Q4H PRN PRN Reason: Pain or Fever Stop: 05/10/21 02:44 Hydrocodone Bitart/Acetaminophen (Hydrocodone/Acetamophen 5/325mg Tab) 1 tab PO Q6H PRN PRN Reason: Pain Stop: 04/24/21 02:44 Last Admin: 04/14/21 07:46 Dose: 1 tab Documented by: Albuterol (Albuterol Hfa 8 Gm Inhaler) 2 puffs INH QID PRN PRN Reason: Shortness Of Breath Stop: 05/10/21 02:44 Last Admin: 04/14/21 11:52 Dose: 2 puffs Documented by: Aspirin (Aspirin 81 Mg Ectab) 81 mg PO DAILY ANDREA Stop: 05/10/21 08:59 Last Admin: 04/14/21 08:41 Dose: 81 mg Documented by: Atorvastatin Calcium (Atorvastatin 40 Mg Tab) 40 mg PO HS ANDREA Stop: 05/10/21 20:59 Last Admin: 04/13/21 20:33 Dose: 40 mg Documented by: Bimatoprost (Bimatoprost 0.01% Op Soln 2.5 Ml Btl) 1 drops OP HS ANDREA Stop: 05/10/21 20:59 Last Admin: 04/13/21 20:38 Dose: 1 drops Documented by: Brinzolamide (Brinzolamide (Azopt) Ops 10 Ml Btl) 1 drops OPB BID ANDREA Stop: 05/10/21 08:59 Last Admin: 04/14/21 08:44 Dose: 1 drops Documented by: Carvedilol (Carvedilol 6.25 Mg Tab) 6.25 mg PO BID ANDREA Stop: 05/10/21 08:59 Last Admin: 04/11/21 07:56 Dose: Not Given Documented by: Dextrose (Dextrose 50% 50 Ml Syringe) 25 - 50 ml IV UD PRN; Protocol PRN Reason: Hypoglycemia Protocol Stop: 05/10/21 03:44 Dicyclomine HCl (Dicyclomine Hcl 20 Mg Tab) 20 mg PO BID [facility] Stop: 05/10/21 08:59 Last Admin: 04/14/21 08:42 Dose: 20 mg Documented by: Diphenhydramine HCl (Diphenhydramine Capsule 25 Mg Cap) 50 mg PO 1245 [facility] Stop: 04/14/21 16:00 Docusate Sodium (Docusate Sodium 100 Mg Cap) 100 mg PO QAM [facility] Stop: 05/10/21 08:59 Last Admin: 04/14/21 08:56 Dose: 100 mg Documented by: Ertapenem (Ertapenem Consult Active) 1 ea N/A UD PRN PRN Reason: Consult Stop: 05/10/21 03:22 Ferrous Sulfate (Ferrous Sulfate 325 Mg Tab) 325 mg PO QAM [facility] Stop: 05/10/21 08:59 Last Admin: 04/14/21 08:42 Dose: 325 mg Documented by: Fludrocortisone Acetate (Fludrocortisone Acetate 0.1 Mg Tab) 0.1 mg PO QAM [facility] Stop: 05/14/21 12:14 Fluticasone/Vilanterol (Fluticasone/Vilanterol 100/25mcg 14 Puffs/Inhaler) 1 puffs INH DAILY [facility] Stop: 05/10/21 08:59 Last Admin: 04/14/21 08:42 Dose: 1 puffs Documented by: Furosemide (Furosemide 40 Mg Tab) 40 mg PO 1700 [facility] Stop: 05/10/21 16:59 Last Admin: 04/10/21 17:40 Dose: 40 mg Documented by: Furosemide (Furosemide 80 Mg Tab) 80 mg PO QAM [facility] Stop: 05/10/21 08:59 Last Admin: 04/10/21 10:20 Dose: 80 mg Documented by: Glucagon (Glucagon For Inj 1 Mg Vial) 1 mg IM UD PRN; Protocol PRN Reason: Hypoglycemia Protocol Stop: 05/10/21 03:44 Glucose (Glucose 40% Gel 15 Gm Tube) 15 - 30 gm PO UD PRN; Protocol PRN Reason: Hypoglycemia Protocol Stop: 05/10/21 03:44 Glucose (Glucose 10 Tabs/Tube) 4 - 8 tabs PO UD PRN; Protocol PRN Reason: Hypoglycemia Protocol Stop: 05/10/21 03:44 Glycerin (Glycerin Adult 12 Supp/Box Supp) 1 supp NE DAILY PRN PRN Reason: Constipation Stop: 05/13/21 11:50 Heparin Sodium (Porcine) (Heparin Sod 5,000 Unit/0.5 Ml Vial) 5,000 units SQ Q8 ANDREA Stop: 05/11/21 13:59 Last Admin: 04/14/21 05:00 Dose: Not Given Documented by: Ertapenem 1,000 mg/ Sodium (Chloride) 60 mls @ 100 mls/hr IV Q24H [facility]; Protocol Stop: 04/20/21 03:59 Last Infusion: 04/14/21 04:17 Dose: Infused Documented by: Hydrocortisone Sodium (Succinate 100 mg/ Syringe) 2 mls @ 4 mls/min IV Q8H [facility] Stop: 05/12/21 15:59 Last Admin: 04/14/21 08:41 Dose: 4 mls/min Documented by: Sodium Chloride (Nss 1000ml) 1,000 mls @ 999 mls/hr IV .Q1H1M ONE Stop: 04/14/21 13:17 Insulin Aspart (Insulin Aspart 100 Units/Ml 3 Ml Pen) 0 units SC ACHS [facility] Stop: 05/10/21 03:59 Last Admin: 04/14/21 08:59 Dose: 12 units Documented by: Ipratropium [place] (Ipratropium [place] Neb Soln 0.02% 2.5 Ml Vial) 0.5 mg INH Q6R PRN PRN Reason: SOB/wheezing Stop: 05/10/21 06:59 Last Admin: 04/12/21 13:07 Dose: 0.5 mg Documented by: Lactobacillus Acidoph/Casei/Rhamnos (Advanced Probiotic 1250 Mg Capsule) 2 cap PO QAM [facility] Stop: 05/10/21 08:59 Last Admin: 04/14/21 08:42 Dose: 2 cap Documented by: Levalbuterol HCl (Levalbuterol 1.25mg/0.5ml Neb) 1.25 mg INH Q6R PRN PRN Reason: SOB/wheezing Stop: 05/10/21 06:59 Last Admin: 04/12/21 13:07 Dose: 1.25 mg Documented by: Lisinopril (Lisinopril 2.5 Mg Tab) 2.5 mg PO DAILY [facility] Stop: 05/10/21 08:59 Last Admin: 04/11/21 08:01 Dose: Not Given Documented by: Melatonin (Melatonin 3 Mg Tab) 3 mg PO HS [facility] Stop: 05/13/21 20:59 Last Admin: 04/13/21 20:37 Dose: 3 mg Documented by: Methimazole (Methimazole 5 Mg Tablet) 10 mg PO DAILY ANDREA Stop: 05/10/21 08:59 Last Admin: 04/14/21 08:42 Dose: 10 mg Documented by: Miscellaneous (Zafirkulast~Order Awaiting Action) 1 ea N/A QS ANDREA Stop: 05/10/21 07:59 Last Admin: 04/14/21 09:01 Dose: Not Given Documented by: Miscellaneous (Carbohydrates For Hypoglycemia ) 15 - 30 gm PO UD PRN PRN Reason: Hypoglycemia Treatment Stop: 05/10/21 03:44 Multivitamins (Multivitamin Tab) 1 tab PO QAM [facility] Stop: 05/10/21 08:59 Last Admin: 04/14/21 08:42 Dose: 1 tab Documented by: Nitroglycerin (Nitroglycerin Sl 0.4 Mg/Tab Tab) 0.4 mg SL UD PRN PRN Reason: Chest Pain Stop: 05/10/21 02:44 Ondansetron HCl (Ondansetron Inj 2 Mg/Ml 2 Ml Vial) 4 mg IV Q6H PRN PRN Reason: Nausea Stop: 05/10/21 02:44 Last Admin: 04/14/21 07:47 Dose: 4 mg Documented by: Pantoprazole Sodium (Pantoprazole 40 Mg Tab) 40 mg PO BID ANDREA Stop: 05/10/21 08:59 Last Admin: 04/14/21 08:42 Dose: 40 mg Documented by: Polyethylene Glycol (Polyethylene (Miralax) 17 Gm Pack) 17 gm PO BID PRN PRN Reason: Constipation Stop: 05/10/21 02:44 Polyethylene Glycol (Polyethylene (Miralax) 17 Gm Pack) 17 gm PO BID17 [facility] Stop: 05/13/21 11:39 Last Admin: 04/14/21 08:44 Dose: 17 gm Documented by: Potassium Chloride (Potassium Chloride Crtab 20 Meq Tabcr) 20 meq PO DAILY ANDREA Stop: 05/10/21 08:59 Last Admin: 04/10/21 08:17 Dose: 20 meq Documented by: Promethazine HCl (Promethazine Hcl 25 Mg Tab) 25 mg PO Q6H PRN PRN Reason: nausea and vomiting Stop: 05/10/21 02:44 Last Admin: 04/12/21 21:43 Dose: 25 mg Documented by: Spironolactone (Spironolactone 12.5 Mg Tab) 12.5 mg PO DAILY [facility] Stop: 05/10/21 08:59 Last Admin: 04/10/21 08:17 Dose: 12.5 mg Documented by: Vitamin D (Cholecalciferol 1,000 Units 25 Mcg Tab) 1,000 units PO QAM [facility] Stop: 05/10/21 08:59 Last Admin: 04/14/21 08:41 Dose: 1,000 units Documented by:
[2021-04-14] MEDS ORDERED: OPTIRAY 320 100ml IV ONE (14:07)
--- NOTE | 2021-04-14 14:35 | Ultrasound Report ---
ULTRASOUND KIDNEYS AND BLADDER CLINICAL HISTORY: Generalized abdominal pain. Clinical concern for perinephric abscess. COMPARISON STUDY: Abdominal CT dated 07/28/2020. TECHNIQUE: Real-time, grayscale, and color flow sonography of the kidneys and bladder is performed. I mages are reviewed in the transverse and longitudinal planes. FINDINGS: Kidneys: The kidneys are normal in size and echotexture. The right kidney measures 10.3 cm in length and the left kidney measures 10.5 cm in length. There is no hydronephrosis. No shadowing renal calcul i are identified. There is no sonographic evidence of contour deforming renal mass lesion. Scattered renal cysts measure up to 1.1 cm. No perinephric fluid is identified. No rest fluid collection is abhinav ntified. Bladder: The bladder is normal in appearance. Ureteral jets were not seen. IMPRESSION: Unremarkable sonographic assessment of the kidneys and bladder. ACT 112: Negative or not required by law. Electronically signed by: Pepito Guillen M.D. 04/14/2021 2:34 PM
--- NOTE | 2021-04-14 14:49 | CT Scan Report ---
CT SCAN OF THE ABDOMEN AND PELVIS WITH IV CONTRAST CLINICAL HISTORY: Generalized abdominal pain. COMPARISON STUDY: Abdominal CT dated 07/28/2020 and 06/11/2020. TECHNIQUE: Following the IV administration of 94 cc of Optiray 320, CT scan of the abdomen and pelvi s is performed from the lung bases to the proximal femora. Images are reviewed in the axial, sagittal , and coronal planes. The patient has been medicated for a reported history of contrast allergy. IV c ontrast was then administered without complication. A dose lowering technique was utilized adhering t o the principles of ALARA. CT DOSE: 1495.81 mGy.cm FINDINGS: Lung bases: The heart is mildly enlarged and without pericardial effusion. The coronary arteries and mitral annulus are calcified. There is a tiny hiatal hernia. There is mild elevation of the left rohith diaphragm with bibasilar scarring/atelectasis. No airspace consolidation or pleural effusion is ident ified. Liver: The contrast-enhanced liver is normal in size, contour, and attenuation. There is no intrahepa tic biliary ductal dilatation. The hepatic veins and portal veins are patent. Gallbladder: Surgically absent. Spleen: Normal in size and attenuation. Pancreas: Moderately atrophic and grossly unremarkable. Adrenal glands: Bilateral adrenal adenomas measuring up to 2 cm are unchanged from previous. Kidneys: The contrast enhanced kidneys are atrophic and without hydronephrosis. The kidneys enhance s ymmetrically. A 2.1 cm exophytic cyst arises from the upper pole of the right kidney. Additional subc entimeter cortical hypodensities also likely represent cysts but are too small for definitive charact erization. Abdominal vasculature: The abdominal aorta is normal in course and caliber noting moderate atheroscle rotic calcification. Bowel: There is advanced colonic diverticulosis. There is wall thickening with pericolonic inflammati on and fluid seen involving the distal descending/proximal sigmoid colon consistent with acute divert iculitis. No organized fluid collection is seen to suggest abscess. A giant diverticulum of the sigmo id colon on image #289 measures up to 3 cm. There is no bowel obstruction. The appendix is not visua lized. Peritoneum: There is no intraperitoneal free air or abdominal ascites. A periumbilical hernia contain s a tiny segment of small bowel as seen on image #284. A large fat-containing supraumbilical hernia i s seen on image #235. Lymphadenopathy: None. Pelvic viscera: The bladder is normal as visualized. The endometrium appears thickened for age measur ing up to 14 mm. The left ovary appears mildly thickened and heterogeneous. This is located adjacent to the sigmoid diverticulitis and likely represents a reactive oophoritis. Skeletal structures: The skeletal structures are osteopenic. There is mild number sacral spondylosis. Grade 1 anterolisthesis is noted at L4-L5. A large hemangioma is seen in the body of T12. No lytic o r blastic lesions are seen. IMPRESSION: 1. Advanced colonic diverticulosis with evidence of acute sigmoid diverticulitis. 2. There is a giant sigmoid diverticulum in this region. No intraperitoneal free air is identified an d there is no organized fluid collection to suggest abscess. 3. The patient has had several episodes of diverticulitis at this site. If not recently performed, co nsider colonoscopy for further assessment of the underlying colon. 4. The left ovary is located immediately adjacent to the sigmoid diverticulitis and there is likely a reactive oophoritis. 5. The endometrium appears thickened for age measuring up to 14 mm. This is not well assessed by CT, and nonemergent/outpatient follow-up with gynecology and pelvic ultrasound is recommended for further assessment. 6. A periumbilical hernia contains a tiny segment of nonobstructed small bowel. 7. Mild cardiomegaly. 8. Additional findings as above. ACT 112: Positive. There are findings on this exam that require communication between the performing entity and the patient following Patient Test Result Information Act ([place] Act 112) guidelines. Electronically signed by: Pepito Guillen M.D. 04/14/2021 2:47 PM
[2021-04-14] MEDS: SODIUM CHLORIDE 0.9% 1000ML 1,000 ML IV SCH (16:20)
--- NOTE | 2021-04-14 20:30 | Critical Care Consultation ---
Date of Consultation April 14, 2021 Assessment & Plan (1) Adrenal insufficiency: Impression: 80-year-old female with complex past medical history currently undergoing treatment for adrenal insufficiency, tachybradycardia syndrome, UTI, and acute diverticulitis Neuro - Alert and oriented x3 Cardiac - Hypotensionimproving. Patient undergoing treatment for adrenal insufficiency, sepsis, and bradycardia -Continue hydrocortisone, and starting Florinef. Patient received 100 mg every 8 hours hydrocortisone x2 days, starting taper -Lactate and procalcitonin within normal limits which is inconsistent with sepsis. Continue broad-spectrum antibiotics and gentle IV fluid resuscitation -Patient with chronic A. fib (not anticoagulated) and currently experiencing tachybradycardia syndrome on this admission. Patient remained asymptomatic -HR currently in the seventies, improving -Cardiology following, appreciate recommendations. Cannot undergo permanent pacemaker at this time due to ongoing infection. -No need for dopamine or transvenous pacing at this time, continue to monitor on telemetry and will transfer to ICU if decompensates -History of nonischemic cardiomyopathy a.m. most recent echo with EF 35 to 40% -Continue to hold antihypertensives especially beta-jonathan, diuresis as necessary with patient currently euvolemic on exam. Low-sodium diet. Strict I's and O's Respiratory - Chronic hypoxic hypercapnic respiratory failurepatient appears to be at baseline of 2 L nasal cannula and is maintaining oxygen saturation. She states that dyspnea has improved at rest but still become short of breath with exertion. No significant pulmonary congestion on chest x-ray and no obvious volume overload on exam. Would diurese as necessary. Nebs as needed. Monitor GI - Diverticulitispatient with chronic diverticulosis and multiple admissions for diverticulitis in the past -CT abdomen and pelvis with advanced colonic diverticulosis with evidence of acute sigmoid diverticulitis. Giant sigmoid diverticulum in the region without intraperitoneal free air or organized fluid collection suggesting abscess. -Continue ertapenem -Constipation improved with MiraLAX, patient reports 4 bowel movements today with normal consistency. Continue bowel regimen -Consider GI consult if symptoms worsen RENAL/LYTES - AKIresolved. Creatinine now within normal limits -Renal ultrasound unremarkable -We will continue gentle fluid resuscitation and maintain maps greater than 65 -Avoid NSAIDs and renally adjust medications -Monitor routine BMPs - UTIcurrently on day 3 of ertapenem for treatment of ESBL E. coli - ENDO - DM type IIcurrently controlled on sliding scale. Last A1c 7.1. -Agree with glargine considering steroids with sliding scale coverage. Monitor HEME - H&H stable, monitor routine CBCs ID - Sepsis?Patient with diverticulitis noted on CT abdomen along with positive urine culture for ESBL E. coli -Infectious disease consulted, continue ertapenem -Lactate and procalcitonin negative, afebrile. -Cultures pending -Monitor LINES/IV ACCESS - Peripheral IVs DVT PROPHYLAXIS - SCDs, heparin Disposition: Agree with current management and patient appears to be showing some improvement. She is currently undergoing care on PCU which I think is appropriate at this time and would not recommend ICU level of care unless she were to decompensate, in which case we could certainly transfer to the ICU. Please feel free to contact ICU provider if further assistance is needed. Thank you for allowing us to participate in the care of this patient. Please refer to my attending physician's documentation for any further recommendations. (2) Chronic atrial fibrillation: (3) Abdominal discomfort: (4) Acute diverticulitis: (5) JOSE DAVID (acute kidney injury): (6) NICM (nonischemic cardiomyopathy): (7) Dyspnea: (8) Hypotension: (9) UTI due to extended-spectrum beta lactamase (ESBL) producing Escherichia coli: (10) JORDAN (obstructive sleep apnea): (11) Chronic respiratory failure with hypoxia and hypercapnia: (12) COPD (chronic obstructive pulmonary disease): (13) Asthma: (14) Gastroparesis: (15) Diabetes mellitus, type 2: (16) Chronic diastolic CHF (congestive heart failure): (17) Chris-tachy syndrome: History of Present Illness Attending Physician: Ruby Begum, History of Present Illness Patient is a pleasant 80-year-old female with a complex past medical history including nonischemic cardiomyopathy, EF 35 to 40%, chronic A. fib (not anticoagulated), DM type II, COPD/JORDAN, diverticulosis, GI bleed who presented to the hospital on 04/09 with complaints of worsening shortness of breath and fatigue. She is undergoing treatment for ESBL E. coli UTI with ertapenem. She has been experiencing episodes of bradycardia and hypotension overnight. Patient was found to have low random cortisol of 3.5 and was started on IV steroids. She seems to have shown improvement with her heart rate and blood pressure this evening. She does have a leukocytosis but lactate and pro calcitonin are within normal limits and she remains afebrile. Her JOSE DAVID has resolved as well and no clear evidence of ischemia. Patient initially had complaints of dysuria as well which she states has significantly improved since admission. She was also significantly constipated and has a history of divert iculosis with bowel paresis. She was given MiraLAX earlier today and claims that she has had a total of 4 bowel movements throughout the day. She underwent CT abdomen with IV contrast which showed advanced colonic diverticulosis with evidence of acute sigmoid diverticulitis with a large sigmoid diverticulum but without intraperitoneal free air or fluid collections to suggest abscess. The patient is also experienced episodes of bradycardia with heart rate reported to be in the 30s for which she has been asymptomatic. Currently her heart rate is in the 70s to 90s. She was seen by cardiology earlier today and is likely tachybradycardia syndrome, however due to ongoing infection permanent pacemaker placement will be delayed. Patient does have a watchman device. Currently there is no need for dopamine or temporary pacer but should she decompensate would need transfer to ICU. I was asked by primary team to see the patient who is currently on PCU. Patient was alert and oriented and pleasant during assessment. Patient states that she is still experiencing some dyspnea which is somewhat chronic as she is on 2 L oxygen at baseline with 4 L at night. However, she does feel that this is improved since her initial admission. She denies lightheadedness, dizziness, or syncopal episodes even while ambulating in the room. She denies any chest pain or palpitations. She is currently not having bradycardia on the monitor but denies symptoms from previous bradycardia events. She denies recent fevers, cough, or sore throat. Patient states that her abdominal pain has improved this afternoon following bowel movements. She reports symptoms of dysuria have improved as well. She denies any recent weight gain or extremity swelling and is nonedematous on exam. She is currently undergone 48 hours of IV hydrocortisone 100 mg every 8 which could and is being started on Florinef. Can likely begin to taper hydrocortisone. She is on day 3 of ertapenem which should cover diverticulitis and UTI. Agree with current management and patient appears to be showing some improvement. She is currently undergoing care on PCU which I think is appropriate at this time and would not recommend ICU level of care unless she were to decompensate, in which case we could certainly transfer to the ICU. Please feel free to contact ICU provider if further assistance is needed. Allergies Allergy/AdvReac Type Severity Reaction Status Date / Time salmon oil Allergy Severe HIVES-REDDENED Verified 04/09/21 23:01 ALL OVER Iodinated Contrast Media Allergy Intermediate HIVES-GI Verified 04/09/21 23:01 SYMPTOMS valsartan Allergy Intermediate FAST HEART Verified 04/09/21 23:01 BEAT bupropion AdvReac Mild GI SYMPTOMS Verified 04/09/21 23:01 enalapril AdvReac Mild GI SYMPTOMS Verified 04/09/21 23:01 escitalopram AdvReac Mild GI SYMPTOMS Verified 04/09/21 23:01 metoprolol AdvReac Mild LOWERS Verified 04/09/21 23:01 PULSE RATE verapamil AdvReac Mild GI UPSET, Verified 04/09/21 23:01 fast heart rate Home Medications Medication Instructions Recorded Confirmed Type atorvastatin 40 mg PO HS 06/23/19 04/09/21 History cholecalciferol (vitamin D3) 1,000 unit PO QAM 06/23/19 04/09/21 History [Vitamin D3] docusate sodium 100 mg PO QAM 06/23/19 04/09/21 History omeprazole 20 mg PO BID 06/23/19 04/09/21 History Lumigan 1 drp OPB HS 09/25/19 04/09/21 History albuterol sulfate 2.5 mg INHALATION BID PRN 09/25/19 04/09/21 History brinzolamide [Azopt] 1 drp OPB BID 09/25/19 04/09/21 History polyethylene glycol 3350 [Miralax] 17 g PO BID PRN 09/25/19 04/09/21 History ferrous sulfate 325 mg (65 mg 325 mg PO QAM tab 02/23/20 04/09/21 History iron) tablet glimepiride 4 mg tablet 2 mg PO QAM tab 02/23/20 04/09/21 History multivitamin 1 tab PO QAM 06/02/20 04/09/21 History dicyclomine 20 mg PO BID 30 Days #60 tab 06/16/20 04/09/21 Rx promethazine 25 mg PO Q6H PRN #60 tab 06/16/20 04/09/21 Rx Probiotic 3,000 mmu cells PO QAM 07/28/20 04/09/21 History hydrocodone-acetaminophen 1 tab PO Q6H PRN 07/28/20 04/09/21 History zafirlukast 20 mg tablet 20 mg PO QAM 09/11/20 04/09/21 History albuterol sulfate 90 mcg/actuation 2 puff INHALATION QID PRN #6.7 g 10/30/20 04/09/21 Rx aerosol inhaler aspirin 81 mg tablet,delayed 81 mg PO DAILY 02/05/21 04/09/21 History release lisinopril 2.5 mg tablet 2.5 mg PO DAILY 02/05/21 04/09/21 History carvedilol 6.25 mg PO BID #60 tab 03/02/21 04/09/21 Rx furosemide 80 mg PO QAM #30 tab 03/02/21 04/09/21 Rx spironolactone 12.5 mg PO DAILY #30 tab 03/02/21 04/09/21 Rx methimazole 10 mg tablet 10 mg PO DAILY 03/07/21 04/09/21 History digoxin [Digitek] 0.125 mg PO 4XWK 04/09/21 04/09/21 History fluticasone propion-salmeterol 2 puff INHALATION BID 04/09/21 04/09/21 History [Advair HFA] furosemide 40 mg PO QPM 04/09/21 04/09/21 History ipratropium-albuterol [Combivent 1 puff INHALATION QID 04/09/21 04/09/21 History Respimat] potassium chloride [Klor-Con M20] 20 meq PO DAILY 04/09/21 04/09/21 History sulfamethoxazole-trimethoprim 1 tab PO DAILY 04/09/21 04/09/21 History Patient History Medical History Acute blood loss anemia Acute decompensated heart failure Acute on chronic 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 Acute on chronic respiratory failure with hypoxia and hypercapnia Aortic valve stenosis, mild Asthma Chronic diastolic CHF (congestive heart failure) Chronic respiratory failure with hypoxia and hypercapnia COPD (chronic obstructive pulmonary disease) Diabetes mellitus, type 2 Diverticulitis Esophageal reflux Glaucoma of both eyes Hyperlipidemia Hypertension Lower GI bleed On home oxygen therapy 2L N/C at all times and 4 L N/C at night Sleep apnea Subclinical hyperthyroidism Subepithelial mass of stomach Surgical History H/O colonoscopy "04/2014 - diverticular disease throughout colon, internal hemorrhoids, polyp removed" History of appendectomy History of cardiac cath "YEARS AGO"NO BLOCKAGES/NO STENTS-F/U DR THOMSON History of cholecystectomy History of dilatation and curettage History of esophagogastroduodenoscopy (EGD) "04/2014 - normal" History of incisional hernia repair History of tooth extraction all teeth Hx of small bowel obstruction "11/2017 - Seen [facility] - surgical intervention" Nausea and vomiting after administration of anesthetic agent Presence of Watchman left atrial appendage closure device 11/2019 @ [facility] Dr. 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); Hx Alcohol Use: No Hx Substance Use: No Preferred Language: [place] Leonean Communication Ability: Effective Autobody Technician Required: No Beliefs That Will Affect Care: None marital status: / Current Living Situation: Alone Other Information That Helps Us Care for You: No Feels Safe at Home: Yes Safety Concerns: Feels Safe At This Time Assistive Devices: Oxygen - at Night and Oxygen - Continuous Review of Systems 2 Review of Systems: All systems reviewed & are unremarkable except as noted in HPI & below Physical Exam Constitutional: + obese, cooperative and comfortable; not in distress Eyes: PERRL, conjunctivae normal, anicteric sclerae ENMT: external ear and nose normal, oropharynx normal Neck: trachea midline, no thyromegaly Respiratory: normal respiratory effort, lungs clear to auscultation no cough and not tachypneic Auscultation: no crackles, no rhonchi and no wheezes Cardiovascular: Rate/Rhythm: + irregularly irregular Heart Sounds: no murmur Vessels: no JVD Extremities: normal capillary refill; no edema Gastrointestinal (Abdomen): Inspection/Auscultation: normal bowel sounds; abdomen not distended Percussion/Palpation: + abdomen tender and abdomen soft; no guarding Skin: no rashes, warm and dry Neurologic: PERRL, EOMI, accommodation nl, no face palsy, no dysarthria Psychiatric: A+Ox3, euthymic affect Results & Data Results & Data ([facility]) Vital Signs (Past 12 Hours) Vital Signs Temp Pulse Resp BP BP Pulse Ox 04/14/21 20:09 36.4 C L 74 17 93/70 L 98 04/14/21 14:50 37.1 C 90 18 124/61 97 04/14/21 12:31 37.1 C 63 20 116/60 94 04/14/21 11:54 56 L 18 95 Coding Level of Care Code 77380 Inpt Consult Level 5 Diagnoses Adrenal insufficiency E27.40 Chronic atrial fibrillation I48.20 Abdominal discomfort R10.9 Acute diverticulitis K57.92 JOSE DAVID (acute kidney injury) N17.9 NICM (nonischemic cardiomyopathy) I42.8 Dyspnea R06.00 Hypotension I95.9 UTI due to extended-spectrum beta lactamase (ESBL) producing Escherichia coli N39.0; B96.29; Z16.12 JORDAN (obstructive sleep apnea) G47.33 Chronic respiratory failure with hypoxia and hypercapnia J96.11; J96.12 COPD (chronic obstructive pulmonary disease) J44.9 Asthma J45.909 Gastroparesis K31.84 Diabetes mellitus, type 2 E11.9 Chronic diastolic CHF (congestive heart failure) I50.32 Chris-tachy syndrome I49.5
[2021-04-14] MEDS: BIMATOPROST 0.01% OP SOLN 2.5 ML BTL OP SCH (21:09)
[2021-04-14] MEDS: ATORVASTATIN 40 MG TAB PO SCH (21:15)
[2021-04-14] MEDS: PROMETHAZINE HCL 25 MG TAB PO PRN (21:23)
[2021-04-14] MEDS: MELATONIN 3 MG TAB PO SCH (21:23)
[2021-04-15] MEDS: HYDROCORTISONE SOD 50 MG in SYRINGE 0 ML IV SCH ×3 (00:27→16:45)
[2021-04-15] MEDS: SODIUM CHLORIDE 0.9% 1000ML 1,000 ML IV SCH ×2 (01:31→12:03)
[2021-04-15] MEDS: ERTAPENEM SODIUM 1,000 MG in SODIUM CHLORIDE 0.9% 50 ML IV SCH (03:43)
[2021-04-15] MEDS: HEPARIN SOD 5,000 UNIT/0.5 ML VIAL SQ SCH ×3 (04:38→21:37)
--- NOTE | 2021-04-15 06:41 | Electrocardiogram Report ---
Test Reason : Blood Pressure : / mmHG Vent. Rate : 070 BPM Atrial Rate : 312 BPM P-R Int : 000 ms QRS Dur : 134 ms QT Int : 368 ms P-R-T Axes : 000 -54 118 degrees QTc Int : 397 ms Atrial fibrillation with premature ventricular or aberrantly conducted complexes Left axis deviation Non-specific intra-ventricular conduction block T wave abnormality, consider lateral ischemia Abnormal ECG When compared with ECG of 09-APR-2021 20:45, No significant change Confirmed by Trav Brar ([id number]) on 04/15/2021 6:41:41 AM Referred By: REFERRED SELF Confirmed By:Trav Brar
[2021-04-15 06:48] LABS: Basophils # (auto) 0.01 K/uL (0-0.2); Basophils % (auto) 0.1 %; Hematocrit (blood only) 34.4 % (37-47); Hemoglobin 10.7 g/dL (12.0-16.0); Immature Granulocytes # (auto) 0.12 K/uL (0.00-0.02); Immature Granulocytes % (auto) 0.9 %; Lymphocytes # (auto) 1.83 K/uL (1.2-3.4); Lymphocytes % (auto) 14.1 %; Mean Corpuscular Hemoglobin 28.7 pg (25-34); Mean Corpuscular Hgb Conc 31.1 g/dL (32-36); Mean Corpuscular Volume 92.2 fL (80-100); Mean Platelet Volume 9.7 fL (7.4-10.4); Monocytes # (auto) 0.43 K/uL (0.11-0.59); Monocytes % (auto) 3.3 %; Neutrophils # (auto) 10.56 K/uL (1.4-6.5); Neutrophils % (auto) 81.6 %; Platelet Count 349 K/uL (130-400); RDW Coefficient of Variation 14.7 % (11.5-14.5); RDW Standard Deviation 50.1 fL (36.4-46.3); Red Blood Count 3.73 M/uL (4.2-5.4); White Blood Count 12.95 K/uL (4.8-10.8)
[2021-04-15] MEDS: PROMETHAZINE HCL 25 MG TAB PO PRN ×2 (07:14→21:34)
[2021-04-15] MEDS: HYDROCODONE/ACETAMOPHEN 5/325MG TAB PO PRN ×2 (07:14→21:34)
[2021-04-15] MEDS: LEVALBUTEROL 1.25MG/0.5ML NEB INH PRN (07:18)
[2021-04-15] MEDS: IPRATROPIUM BROMIDE NEB SOLN 0.02% 2.5 ML VIAL INH PRN (07:18)
[2021-04-15 07:23] LABS: Calcium 8.9 mg/dl (8.5-10.1); Creatinine Clr Calc Pharmacy 72.9 ml/min; Est GFR (Non-African American) 74.2 ml/min; Magnesium 2.2 mg/dl (1.8-2.4); Potassium 4.1 mmol/L (3.5-5.1)
[2021-04-15 07:24] LABS: Phosphorus 3.3 mg/dl (2.5-4.9)
[2021-04-15] MEDS: INSULIN ASPART 100 UNITS/ML 3 ML PEN SC SCH ×3 (08:37→16:44)
[2021-04-15] MEDS: FERROUS SULFATE 325 MG TAB PO SCH (08:38)
[2021-04-15] MEDS: DICYCLOMINE HCL 20 MG TAB PO SCH ×2 (08:38→21:35)
[2021-04-15] MEDS: ASPIRIN 81 MG ECTAB PO SCH (08:38)
[2021-04-15] MEDS: CHOLECALCIFEROL 1,000 UNITS 25 MCG TAB PO SCH (08:38)
[2021-04-15] MEDS: PANTOprazole 40 MG TAB PO SCH ×2 (08:39→21:36)
[2021-04-15] MEDS: MULTIVITAMIN TAB PO SCH (08:39)
[2021-04-15] MEDS: ADVANCED PROBIOTIC 1250 MG CAPSULE PO SCH (08:39)
[2021-04-15] MEDS: methIMAzole 5 MG TABLET PO SCH (08:39)
[2021-04-15] MEDS: FLUTICASONE/VILANTEROL 100/25MCG 14 PUFFS/INHALER INH SCH (08:40)
[2021-04-15] MEDS: FLUDROCORTISONE ACETATE 0.1 MG TAB PO SCH (08:40)
[2021-04-15] MEDS: POLYETHYLENE (MIRALAX) 17 GM PACK PO SCH (08:41)
[2021-04-15] MEDS: BRINZOLAMIDE (AZOPT) OPS 10 ML BTL OPB SCH ×2 (08:41→21:35)
[2021-04-15] MEDS: DOCUSATE SODIUM 100 MG CAP PO SCH (08:41)
--- NOTE | 2021-04-15 09:38 | Critical Care Progress Note ---
Date of Service April 15, 2021 Assessment & Plan (1) Chris-tachy syndrome: (2) Chronic HFrEF (heart failure with reduced ejection fraction): (3) JOSE DAVID (acute kidney injury): (4) Dyspnea: (5) UTI due to extended-spectrum beta lactamase (ESBL) producing Escherichia coli: Impression: 80-year-old female admitted for IV antibiotics with urinary tract infection. Her hospital course has been complicated by questionable relative adrenal insufficiency and tachybradycardia syndrome as well as CT scan showing diverticular changes. There was initial concern that the patient may require transfer to the ICU however her lactate has been normal. She has not required intervention for her bradycardia and it appears to have resolved this morning and her blood pressure is normal. Recommendations: 1. UTI: Antibiotics per infectious disease and the hospitalist. Repeat imaging showed no evidence of complicated UTI such as perinephric abscess or pyelonephritis. 2. Tachybradycardia syndrome: Per cardiology. Avoid AV tad blocking agents. She does not require temporary pacing or pressor agents at the current time if she is hemodynamically stable with a normal heart rate and blood pressure. Long-term management per cardiology. 3. Reported COPD: The patient's not bronchospastic currently. No indication for steroids from a lung perspective. Continue as needed bronchodilators. Outpatient PFTs may be appropriate depending on clinical context. 4. Questionable adrenal insufficiency: The patient's cortisol was low at 3.78. This was measured first thing in the morning. Typically these values are interpreted in the setting of septic shock with need for vasopressor agents. She is already been initiated on hydrocortisone and Florinef. At this point time given her stable hemodynamics would recommend weaning these over the next 4 to 5 days depending on hemodynamic stability. Could consider ACTH stim test however the current steroids will likely make that unreliable. 5. Acute sigmoid diverticulitis. Should be covered by antibiotics. Management per medicine and surgery. As per radiology note, consider GI evaluation if not done previously. With the patient's normal lactate, normal heart rate, normal blood pressure, I do not think she requires invasive monitoring in the intensive care unit at the current time. Critical care services will sign off. Feel free to contact us if we can be of additional assistance. Should the patient's clinical condition deteriorate, we would be happy to evaluate her in the ICU. Admission and Anticipated Discharge Date Admission Date: April 10, 2021 Subjective Patient seen and examined. EMR reviewed. She states she is doing reasonably well this morning. She did complain of some mild lower pelvic cramping early this morning but this is now resolved. She was up most of the night using the restroom due to the MiraLAX that she was given. She did require 1 nebulized therapy this morning due to some shortness of breath which is also resolved. She denies fevers chills night sweats. She is not coughing or expectorating phlegm. She is not had any syncope presyncope dizziness or lightheadedness. Review of Systems Review of Systems: All systems reviewed & are unremarkable except as noted in HPI & below Physical Exam Constitutional: WD/WN, vitals as above Neck: trachea midline, no thyromegaly Respiratory: normal respiratory effort, lungs clear to auscultation Cardiovascular: RRR, no murmur, no edema Gastrointestinal (Abdomen): normal bowel sounds, soft, nontender, no hepatosplenomegaly Musculoskeletal: Extremities: extremities normal to inspection Skin: no rashes, warm and dry Neurologic: Nonfocal exam Lymphatic: no cervical lymphadenopathy Results & Data Results & Data ([facility]) Vital Signs (Past 12 Hours) Vital Signs Temp Pulse Pulse Resp BP BP Pulse Ox 04/15/21 07:18 68 18 98 04/15/21 07:01 36.6 C 66 19 122/85 99 04/15/21 04:10 36.7 C 57 L 18 109/64 97 04/15/21 00:00 82 04/14/21 23:58 36.8 C 79 20 138/78 98 Critical Care Results & Data Vital Signs (Past 12 Hours) Vital Signs Temp Pulse Pulse Resp BP BP Pulse Ox 04/15/21 07:18 68 18 98 04/15/21 07:01 36.6 C 66 19 122/85 99 04/15/21 04:10 36.7 C 57 L 18 109/64 97 04/15/21 00:00 82 04/14/21 23:58 36.8 C 79 20 138/78 98 Lab & Micro Results (Past 24 Hours) RBC 3.73 M/uL (4.2-5.4) L 04/15/21 WBC 12.95 K/uL (4.8-10.8) H 04/15/21 Hgb 10.7 g/dL (12.0-16.0) L 04/15/21 Hct 34.4 % (37-47) L 04/15/21 MCV 92.2 fL (80-100) 04/15/21 MCH 28.7 pg (25-34) 04/15/21 MCHC 31.1 g/dL (32-36) L 04/15/21 RDW Standard Deviation 50.1 fL (36.4-46.3) H 04/15/21 RDW Coefficient of Variation 14.7 % (11.5-14.5) H 04/15/21 Plt Count 349 K/uL (130-400) 04/15/21 MPV 9.7 fL (7.4-10.4) 04/15/21 Neutrophils (%) (Auto) 81.6 % 04/15/21 Lymphocytes (%) (Auto) 14.1 % 04/15/21 Monocytes # (Auto) 0.43 K/uL (0.11-0.59) 04/15/21 Eosinophils # (Auto) 0.00 K/uL (0-0.5) 04/15/21 Immature Granulocyte % (Auto) 0.9 % 04/15/21 Neutrophils # (Auto) 10.56 K/uL (1.4-6.5) H 04/15/21 Lymphocytes # (Auto) 1.83 K/uL (1.2-3.4) 04/15/21 Monocytes # (Auto) 0.43 K/uL (0.11-0.59) 04/15/21 Eosinophils # (Auto) 0.00 K/uL (0-0.5) 04/15/21 Basophils # (Auto) 0.01 K/uL (0-0.2) 04/15/21 Immature Granulocyte # (Auto) 0.12 K/uL (0.00-0.02) H 04/15/21 Na 141 mmol/L (136-145) 04/15/21 K 4.1 mmol/L (3.5-5.1) 04/15/21 Cl 108 mmol/L (98-107) H 04/15/21 CO2 32 mmol/L (21-32) 04/15/21 Anion Gap 1.0 (3-11) L 04/15/21 BUN 17 mg/dl (7-18) 04/15/21 Creatinine 0.75 mg/dl (0.6-1.2) 04/15/21 Estimated GFR ( Amer) 86.0 ml/min 04/15/21 Estimated GFR (Non-Af Amer) 74.2 ml/min 04/15/21 BUN/Creatinine Ratio 23.0 (10-20) H 04/15/21 Glu 147 mg/dl (70-99) H 04/15/21 Ca 8.9 mg/dl (8.5-10.1) 04/15/21 Phosphorus Level 3.3 mg/dl (2.5-4.9) 04/15/21 Total Bilirubin 0.2 mg/dl (0.2-1) 04/14/21 AST 7 U/L (15-37) L 04/14/21 ALT 12 U/L (12-78) 04/14/21 Alkaline Phosphatase 107 U/L (45-117) 04/14/21 TP 7.1 gm/dl (6.4-8.2) 04/14/21 Albumin 3.1 gm/dl (3.4-5.0) L 04/14/21 Globulin 4.0 gm/dl (2.5-4.0) 04/14/21 Albumin/Globulin Ratio 0.8 (0.9-2) L 04/14/21 Mg 2.2 mg/dl (1.8-2.4) 04/15/21 06:39 04/15/21 Calcium Level 8.9 mg/dl (8.5-10.1) 04/15/21 06:39 04/15/21 Diagnostic Findings (Past 24 Hours) Chest X-Ray 04/14/21 10:38 TWO VIEW CHEST CLINICAL HISTORY: Hypotension. FINDINGS: PA and lateral chest radiographs are compared to study dated 04/09/2021. The heart is enlarged noting atherosclerotic calcification of the thoracic aorta. The pulmonary vasculature is noncongested. Postoperative change is noted in the mediastinum. Chronic interstitial thickening is similar to previous. There is bibasilar atelectasis. No airspace consolidation or pleural effusion is identified. There is no pneumothorax. The skeletal structures are osteopenic. The bony thorax appears intact. IMPRESSION: Cardiomegaly with no active disease in the chest. ACT 112: Negative or not required by law. Electronically signed by: Pepito Guillen M.D. 04/14/2021 11:59 AM KUB X-Ray 04/14/21 11:03 KUB CLINICAL HISTORY: Abdominal discomfort. FINDINGS: 2 AP supine abdominal radiographs are correlated with abdominal CT dated 07/28/2020. There is a nonobstructed abdominal bowel gas pattern. Moderate to severe constipation is seen throughout the colon. No evidence of intraperitoneal free air is seen on these supine images. There are no abnormal abdominal calcifications. There is atherosclerotic calcification of the abdo silvano aorta. The skeletal structures are osteopenic and appear intact. There is moderate to advanced lumbosacral spondylosis. Sclerotic changes also noted in the sacroiliac joints and pubic symphysis. IMPRESSION: Moderate to severe constipation. Electronically signed by: Pepito Guillen M.D. 04/14/2021 12:00 PM Renal Ultrasound 04/14/21 12:12 ULTRASOUND KIDNEYS AND BLADDER CLINICAL HISTORY: Generalized abdominal pain. Clinical concern for perinephric abscess. COMPARISON STUDY: Abdominal CT dated 07/28/2020. TECHNIQUE: Real-time, grayscale, and color flow sonography of the kidneys and bladder is performed. Images are reviewed in the transverse and longitudinal planes. FINDINGS: Kidneys: The kidneys are normal in size and echotexture. The right kidney measures 10.3 cm in length and the left kidney measures 10.5 cm in length. There is no hydronephrosis. No shadowing renal calculi are identified. There is no sonographic evidence of contour deforming renal mass lesion. Scattered renal cysts measure up to 1.1 cm. No perinephric fluid is identified. No rest fluid collection is identified. Bladder: The bladder is normal in appearance. Ureteral jets were not seen. IMPRESSION: Unremarkable sonographic assessment of the kidneys and bladder. ACT 112: Negative or not required by law. Electronically signed by: Pepito Guillen M.D. 04/14/2021 2:34 PM Abdomen/Pelvis CT 04/14/21 12:37 CT SCAN OF THE ABDOMEN AND PELVIS WITH IV CONTRAST CLINICAL HISTORY: Generalized abdominal pain. COMPARISON STUDY: Abdominal CT dated 07/28/2020 and 06/11/2020. TECHNIQUE: Following the IV administration of 94 cc of Optiray 320, CT scan of the abdomen and pelvis is performed from the lung bases to the proximal femora. Images are reviewed in the axial, sagittal, and coronal planes. The patient has been medicated for a reported history of contrast allergy. IV contrast was then administered without complication. A dose lowering technique was utilized adhering to the principles of ALARA. CT DOSE: 1495.81 mGy.cm FINDINGS: Lung bases: The heart is mildly enlarged and without pericardial effusion. The coronary arteries and mitral annulus are calcified. There is a tiny hiatal hernia. There is mild elevation of the left hemidiaphragm with bibasilar scarring/atelectasis. No airspace consolidation or pleural effusion is identified. Liver: The contrast-enhanced liver is normal in size, contour, and attenuation. There is no intrahepatic biliary ductal dilatation. The hepatic veins and portal veins are patent. Gallbladder: Surgically absent. Spleen: Normal in size and attenuation. Pancreas: Moderately atrophic and grossly unremarkable. Adrenal glands: Bilateral adrenal adenomas measuring up to 2 cm are unchanged from previous. Kidneys: The contrast enhanced kidneys are atrophic and without hydronephrosis. The kidneys enhance symmetrically. A 2.1 cm exophytic cyst arises from the upper pole of the right kidney. Additional subcentimeter cortical hypodensities also likely represent cysts but are too small for definitive characterization. Abdominal vasculature: The abdominal aorta is normal in course and caliber noting moderate atherosclerotic calcification. Bowel: There is advanced colonic diverticulosis. There is wall thickening with pericolonic inflammation and fluid seen involving the distal descending/proximal sigmoid colon consistent with acute diverticulitis. No organized fluid collection is seen to suggest abscess. A giant diverticulum of the sigmoid colon on image #289 measures up to 3 cm. There is no bowel obstruction. The appendix is not visualized. Peritoneum: There is no intraperitoneal free air or abdominal ascites. A periumbilical hernia contains a tiny segment of small bowel as seen on image #284. A large fat-containing supraumbilical hernia is seen on image #235. Lymphadenopathy: None. Pelvic viscera: The bladder is normal as visualized. The endometrium appears thickened for age measuring up to 14 mm. The left ovary appears mildly thickened and heterogeneous. This is located adjacent to the sigmoid diverticulitis and likely represents a reactive oophoritis. Skeletal structures: The skeletal structures are osteopenic. There is mild number sacral spondylosis. Grade 1 anterolisthesis is noted at L4-L5. A large hemangioma is seen in the body of T12. No lytic or blastic lesions are seen. IMPRESSION: 1. Advanced colonic diverticulosis with evidence of acute sigmoid diverticulitis. 2. There is a giant sigmoid diverticulum in this region. No intraperitoneal free air is identified and there is no organized fluid collection to suggest abscess. 3. The patient has had several episodes of diverticulitis at this site. If not recently performed, consider colonoscopy for further assessment of the underlying colon. 4. The left ovary is located immediately adjacent to the sigmoid diverticulitis and there is likely a reactive oophoritis. 5. The endometrium appears thickened for age measuring up to 14 mm. This is not well assessed by CT, and nonemergent/outpatient follow-up with gynecology and pelvic ultrasound is recommended for further assessment. 6. A periumbilical hernia contains a tiny segment of nonobstructed small bowel. 7. Mild cardiomegaly. 8. Additional findings as above. ACT 112: Positive. There are findings on this exam that require communication between the performing entity and the patient following Patient Test Result Information Act ([place] Act 112) guidelines. Electronically signed by: Pepito Guillen M.D. 04/14/2021 2:47 PM I & O Totals 24 Hours 04/14/21 04/15/21 04/16/21 06:59 06:59 06:59 Intake Total 588.333 / 304.249 7044.333 / 2078.333 Balance 588.333 / 018.459 0830.333 / 2078.333 Cumulative 04/09/21 20:24 thru 04/15/21 07:41 Intake Total 9187.666 Output Total 4400 Balance 4787.666 RT Ventilator Mngmt (Last Documented) Ventilator Ordered Settings Respiratory Rate 18 04/15/21 07:18 Ventilator - PT Measurements Respiratory Rate 18 Coding Level of Care Code 91098 Subseq Hosp Care Lvl 3 Diagnoses Chris-tachy syndrome I49.5 Chronic HFrEF (heart failure with reduced ejection fraction) I50.22 JOSE DAVID (acute kidney injury) N17.9 Dyspnea R06.00 UTI due to extended-spectrum beta lactamase (ESBL) producing Escherichia coli N39.0; B96.29; Z16.12 Time Spent (min) 40
--- NOTE | 2021-04-15 13:15 | Cardiology Progress Note ---
Date of Service April 15, 2021 Assessment & Plan (1) Hypotension: (2) Adrenal insufficiency: (3) Chronic atrial fibrillation: (4) Chronic HFrEF (heart failure with reduced ejection fraction): (5) JOSE DAVID (acute kidney injury): (6) UTI due to extended-spectrum beta lactamase (ESBL) producing Escherichia coli: (7) Hyponatremia: (8) Subclinical hyperthyroidism: (9) NICM (nonischemic cardiomyopathy): (10) JORDNA (obstructive sleep apnea): (11) Chronic respiratory failure with hypoxia and hypercapnia: (12) Asthma: (13) COPD (chronic obstructive pulmonary disease): (14) Diabetes mellitus, type 2: Vital signs have stabilized with medication adjustments. No further bradycardia arrhythmias or pauses overnight. 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 Obviously, ongoing infection would preclude permanent pacemaker placement. Currently she is clinically stable but should she deteriorate would recommend initiation of dopamine, consideration for temporary pacer may also be given. Does have watchman device in place and now on anticoagulation. Historically has not followed with our cardiology practice and was first seen after admission here in February, previously followed with Dr. Gutierrez pinto and electrophysiology in [place]. 2D echocardiogram repeated today shows no pericardial effusion Recommend monitoring in the medical intensive care unit or surgical intensive care unit should hemodynamic support be necessary. Admission and Anticipated Discharge Date Admission Date: April 10, 2021 Subjective Patient seen and examined, chart reviewed. Case discussed with nursing and primary team. Patient states that she remains very fatigued and did not sleep well last night. Does not believe her energy has improved despite vital signs stabilizing. Telemetry reviewed: Atrial fibrillation rate controlled without any significant bradycardia cardiac events or pauses overnight. Review of Systems Review of Systems: All systems reviewed & are unremarkable except as noted in HPI & below Physical Exam Physical Exam: General: Awake, alert and oriented x 3. No acute distress. HEENT: Normocephalic, atraumatic. Pupils equal, round and reactive to light and accommodation. Extraocular muscles are intact. Anicteric sclera. Moist mucous membranes. Neck: No JVD. No bruit. Cardiovascular: irregularly irregular, unable to appreciate murmur, rub or gallop. Pulmonary: Clear to auscultation bilaterally. No rales, rhonchi, or wheezing. Abdomen: Bowel sounds x 4, soft. No rebound, guarding or tenderness. No organomegaly. Extremities: No clubbing, cyanosis or edema. +2 pedal pulses bilaterally. Skin: Warm and dry. Results & Data ([facility]) Vital Signs (Past 12 Hours) Vital Signs Temp Pulse Resp BP Pulse Ox 04/15/21 11:09 36.9 C 69 18 108/57 L 96 04/15/21 07:18 68 18 98 04/15/21 07:01 36.6 C 66 19 122/85 99 04/15/21 04:10 36.7 C 57 L 18 109/64 97
--- NOTE | 2021-04-15 15:51 | Hospitalist Progress Note ---
Date of Service April 15, 2021 Assessment & Plan (1) UTI due to extended-spectrum beta lactamase (ESBL) producing Escherichia coli: Bactrim given for suspected UTI, changed on admission 04/10 to to Invanz when culture came back positive for ESBL E. coli. Continue Invanz for now pending clinical improvement. (2) Acute diverticulitis: Abdominal pain is improved. Cont abx for now until this is stable. (3) Chris-tachy syndrome: Initial bradycardia was resolved with IVF and additional mineralocorticoid support with fludrocortisone. Cont plan per cardiology (4) Adrenal insufficiency: improved hemodynamics on hydrocortisone-wean down to 50mg IV q8. Cont fludrocortisone for now. Discuss with endo appropriate weaning given this clinical scenario. (5) Abdominal discomfort: improved, was possibly related to underlying acute divericulitis reportedly ongoing for 3 weeks per patient vs adrenal issues. Improved and tolerating PO. (6) Dyspnea: She has history of COPD/asthma and has been on home oxygen, 2 L during the day and 4 L at night. She is at her baseline. Current symptoms attributed to adrenal insufficiency. Improved per her report. (7) Hypotension: resolved with above therapies. (8) JOSE DAVID (acute kidney injury): Creatinine elevated to 1.4 on admission likely secondary to Bactrim use, dehydration in setting of infection and ongoing diuretic use. Resolved to baseline after holding diuretics and lisinopril. (9) Chronic respiratory failure with hypoxia and hypercapnia: 2/2 COPD. Appears stable, no wheezing or worsening hypoxia or SOB. Has been on home oxygen, 2 L via nasal cannula during the day and 4 L at night (10) COPD (chronic obstructive pulmonary disease): Appears stable without evidence of wheezing, sputum changes or coughing. There is some dyspnea however she appears to be improved. bronchodilators PRN (11) Chronic HFrEF (heart failure with reduced ejection fraction): Known h/o NICM-recent med optimization after recent hospitalization one month ago. Diuretics held as above-giving IVF. Continue daily weights, low-sodium diet, strict ins and outs. (12) Chronic atrial fibrillation: Controlled with Coreg and digoxin. Holding Coreg at this time secondary to hypotension and bradycardia. Continue digoxin therapy-low level checked 04/13. Not on anticoagulation. Followed by [facility] cardiology. (13) JORDAN (obstructive sleep apnea): Does not use any CPAP and/or BiPAP (14) Diabetes mellitus, type 2: controlled on SSI inpatient. Recent A1C is 7.1. Cont correction factor insulin with carb coverage for now. Added glargine and tightened scale with added steroids in anticipation of hyperglycemia. (15) DVT prophylaxis: Heparin Full Code Dispo--cont PCU monitoring. DO [facility] Hospital[facility] Admission and Anticipated Discharge Date Admission Date: April 10, 2021 Subjective Mrs. Harrington is an 80-year-old female with a known history of heart failure and persistent atrial fibrillation who also has chronic hypoxic respiratory failure secondary to COPD who presented with worsening shortness of breath. Creatinine was 1.45 on admission with a baseline of 0.8-0.9. This improved closer to baseline with holding her diuretics and lisinopril and with some fluids that were given. She was admitted with an ESBL E. coli UTI and was transitioned from Bactrim as an outpatient to Invanz. She was hypotensive despite fluids and antibiotics. Concern for adrenal insufficiency developed and her random cortisol was low. Started on hydrocortisone IV 04/12. Didn't improve right away and CT a/p with contrast revealed acute diverticulitis in area where she has had recurrent infections-no obvious complications. Fludrocortisone was added. Cardiology eval and she has ?tachybrady syndrome. Hemodynamics improved with fludrocortisone and IVF. Today abdominal pain is resolved and she is less fatigued although tired because of not sleeping well last night. Looking better clinically. Review of Systems Review of Systems: All systems reviewed & are unremarkable except as noted in Subjective Physical Exam Physical Exam: CONSTITUTIONAL: obese, vitals as above, generally NAD, appears improved clinically. EYES: normal conjunctivae, no scleral icterus ENT: external ear and nose normal RESPIRATORY: clear to auscultation bilaterally, no crackles, rales or wheezes, normal respiratory effort CARDIOVASCULAR: irregular rate and irregular rhythm, S1 and 2 heard without murmurs, gallops or rubs, no JVD, no peripheral edema GASTROINTESTINAL: soft, LUQ pain, suprapubic tenderness, no distension MUSCULOSKELETAL: strength 5/5 throughout, head is normocephalic and atraumatic SKIN: warm and dry NEUROLOGIC: CN 2-12 grossly intact, no sensory deficit, normal cognition, normal speech, no gross focal deficits PSYCHIATRIC: alert cooperative and oriented to person, place and time Results & Data Results & Data ([facility]) Vital Signs (Past 12 Hours) Vital Signs Temp Pulse Resp BP Pulse Ox 04/15/21 15:39 36.8 C 54 L 18 118/76 98 04/15/21 11:09 36.9 C 69 18 108/57 L 96 04/15/21 07:18 68 18 98 04/15/21 07:01 36.6 C 66 19 122/85 99 04/15/21 04:10 36.7 C 57 L 18 109/64 97 Laboratory Results Short CBC 04/15/21 Range/Units 06:39 WBC 12.95 H (4.8-10.8) K/uL Hgb 10.7 L (12.0-16.0) g/dL Hct 34.4 L (37-47) % Plt Count 349 (130-400) K/uL BMP 04/15/21 06:39 Sodium 141 Potassium 4.1 Chloride 108 H Carbon Dioxide 32 BUN 17 Creatinine 0.75 Glucose 147 H Calcium 8.9 Medications Administered Current Inpatient Medications Acetaminophen (Acetaminophen 325 Mg Tab) 650 mg PO Q4H PRN PRN Reason: Pain or Fever Stop: 05/10/21 02:44 Hydrocodone Bitart/Acetaminophen (Hydrocodone/Acetamophen 5/325mg Tab) 1 tab PO Q6H PRN PRN Reason: Pain Stop: 04/24/21 02:44 Last Admin: 04/15/21 07:14 Dose: 1 tab Documented by: Albuterol (Albuterol Hfa 8 Gm Inhaler) 2 puffs INH QID PRN PRN Reason: Shortness Of Breath Stop: 05/10/21 02:44 Last Admin: 04/14/21 11:52 Dose: 2 puffs Documented by: Aspirin (Aspirin 81 Mg Ectab) 81 mg PO DAILY ANDREA Stop: 05/10/21 08:59 Last Admin: 04/15/21 08:38 Dose: 81 mg Documented by: Atorvastatin Calcium (Atorvastatin 40 Mg Tab) 40 mg PO HS ANDREA Stop: 05/10/21 20:59 Last Admin: 04/14/21 21:15 Dose: 40 mg Documented by: Bimatoprost (Bimatoprost 0.01% Op Soln 2.5 Ml Btl) 1 drops OP HS ANDREA Stop: 05/10/21 20:59 Last Admin: 04/14/21 21:09 Dose: 1 drops Documented by: Brinzolamide (Brinzolamide (Azopt) Ops 10 Ml Btl) 1 drops OPB BID [facility] Stop: 05/10/21 08:59 Last Admin: 04/15/21 08:41 Dose: 1 drops Documented by: Carvedilol (Carvedilol 6.25 Mg Tab) 6.25 mg PO BID ANDREA Stop: 05/10/21 08:59 Last Admin: 04/11/21 07:56 Dose: Not Given Documented by: Dextrose (Dextrose 50% 50 Ml Syringe) 25 - 50 ml IV UD PRN; Protocol PRN Reason: Hypoglycemia Protocol Stop: 05/10/21 03:44 Dicyclomine HCl (Dicyclomine Hcl 20 Mg Tab) 20 mg PO BID [facility] Stop: 05/10/21 08:59 Last Admin: 04/15/21 08:38 Dose: 20 mg Documented by: Docusate Sodium (Docusate Sodium 100 Mg Cap) 100 mg PO QAM [facility] Stop: 05/10/21 08:59 Last Admin: 04/15/21 08:41 Dose: Not Given Documented by: Ertapenem (Ertapenem Consult Active) 1 ea N/A UD PRN PRN Reason: Consult Stop: 05/10/21 03:22 Ferrous Sulfate (Ferrous Sulfate 325 Mg Tab) 325 mg PO QAM [facility] Stop: 05/10/21 08:59 Last Admin: 04/15/21 08:38 Dose: 325 mg Documented by: Fludrocortisone Acetate (Fludrocortisone Acetate 0.1 Mg Tab) 0.1 mg PO QAM [facility] Stop: 05/14/21 12:14 Last Admin: 04/15/21 08:40 Dose: 0.1 mg Documented by: Fluticasone/Vilanterol (Fluticasone/Vilanterol 100/25mcg 14 Puffs/Inhaler) 1 puffs INH DAILY [facility] Stop: 05/10/21 08:59 Last Admin: 04/15/21 08:40 Dose: 1 puffs Documented by: Furosemide (Furosemide 40 Mg Tab) 40 mg PO 1700 [facility] Stop: 05/10/21 16:59 Last Admin: 04/10/21 17:40 Dose: 40 mg Documented by: Furosemide (Furosemide 80 Mg Tab) 80 mg PO QAM [facility] Stop: 05/10/21 08:59 Last Admin: 04/10/21 10:20 Dose: 80 mg Documented by: Glucagon (Glucagon For Inj 1 Mg Vial) 1 mg IM UD PRN; Protocol PRN Reason: Hypoglycemia Protocol Stop: 05/10/21 03:44 Glucose (Glucose 40% Gel 15 Gm Tube) 15 - 30 gm PO UD PRN; Protocol PRN Reason: Hypoglycemia Protocol Stop: 05/10/21 03:44 Glucose (Glucose 10 Tabs/Tube) 4 - 8 tabs PO UD PRN; Protocol PRN Reason: Hypoglycemia Protocol Stop: 05/10/21 03:44 Glycerin (Glycerin Adult 12 Supp/Box Supp) 1 supp OK DAILY PRN PRN Reason: Constipation Stop: 05/13/21 11:50 Heparin Sodium (Porcine) (Heparin Sod 5,000 Unit/0.5 Ml Vial) 5,000 units SQ Q8 ANDREA Stop: 05/11/21 13:59 Last Admin: 04/15/21 12:05 Dose: Not Given Documented by: Ertapenem 1,000 mg/ Sodium (Chloride) 60 mls @ 100 mls/hr IV Q24H ANDREA; Protocol Stop: 04/20/21 03:59 Last Infusion: 04/15/21 04:19 Dose: Infused Documented by: Sodium Chloride (Nss 1000ml) 1,000 mls @ 100 mls/hr IV .Q10H ANDREA Stop: 05/14/21 14:59 Last Admin: 04/15/21 12:03 Dose: 100 mls/hr Documented by: Hydrocortisone Sodium (Succinate 50 mg/ Syringe) 1 mls @ 4 mls/min IV Q8H ANDREA Stop: 05/15/21 00:00 Last Admin: 04/15/21 07:15 Dose: 4 mls/min Documented by: Insulin Aspart (Insulin Aspart 100 Units/Ml 3 Ml Pen) 0 units SC ACHS ANDREA Stop: 05/10/21 03:59 Last Admin: 04/15/21 12:02 Dose: 10 units Documented by: Ipratropium [place] (Ipratropium [place] Neb Soln 0.02% 2.5 Ml Vial) 0.5 mg INH Q6R PRN PRN Reason: SOB/wheezing Stop: 05/10/21 06:59 Last Admin: 04/15/21 07:18 Dose: 0.5 mg Documented by: Lactobacillus Acidoph/Casei/Rhamnos (Advanced Probiotic 1250 Mg Capsule) 2 cap PO QAM ANDREA Stop: 05/10/21 08:59 Last Admin: 04/15/21 08:39 Dose: 2 cap Documented by: Levalbuterol HCl (Levalbuterol 1.25mg/0.5ml Neb) 1.25 mg INH Q6R PRN PRN Reason: SOB/wheezing Stop: 05/10/21 06:59 Last Admin: 04/15/21 07:18 Dose: 1.25 mg Documented by: Lisinopril (Lisinopril 2.5 Mg Tab) 2.5 mg PO DAILY ANDREA Stop: 05/10/21 08:59 Last Admin: 04/11/21 08:01 Dose: Not Given Documented by: Melatonin (Melatonin 3 Mg Tab) 3 mg PO HS [facility] Stop: 05/13/21 20:59 Last Admin: 04/14/21 21:23 Dose: 3 mg Documented by: Methimazole (Methimazole 5 Mg Tablet) 10 mg PO DAILY [facility] Stop: 05/10/21 08:59 Last Admin: 04/15/21 08:39 Dose: 10 mg Documented by: Miscellaneous (Zafirkulast~Order Awaiting Action) 1 ea N/A QS [facility] Stop: 05/10/21 07:59 Last Admin: 04/15/21 08:38 Dose: Not Given Documented by: Miscellaneous (Carbohydrates For Hypoglycemia ) 15 - 30 gm PO UD PRN PRN Reason: Hypoglycemia Treatment Stop: 05/10/21 03:44 Multivitamins (Multivitamin Tab) 1 tab PO QAM [facility] Stop: 05/10/21 08:59 Last Admin: 04/15/21 08:39 Dose: 1 tab Documented by: Nitroglycerin (Nitroglycerin Sl 0.4 Mg/Tab Tab) 0.4 mg SL UD PRN PRN Reason: Chest Pain Stop: 05/10/21 02:44 Ondansetron HCl (Ondansetron Inj 2 Mg/Ml 2 Ml Vial) 4 mg IV Q6H PRN PRN Reason: Nausea Stop: 05/10/21 02:44 Last Admin: 04/14/21 17:36 Dose: 4 mg Documented by: Pantoprazole Sodium (Pantoprazole 40 Mg Tab) 40 mg PO BID [facility] Stop: 05/10/21 08:59 Last Admin: 04/15/21 08:39 Dose: 40 mg Documented by: Polyethylene Glycol (Polyethylene (Miralax) 17 Gm Pack) 17 gm PO BID PRN PRN Reason: Constipation Stop: 05/10/21 02:44 Potassium Chloride (Potassium Chloride Crtab 20 Meq Tabcr) 20 meq PO DAILY [facility] Stop: 05/10/21 08:59 Last Admin: 04/10/21 08:17 Dose: 20 meq Documented by: Promethazine HCl (Promethazine Hcl 25 Mg Tab) 25 mg PO Q6H PRN PRN Reason: nausea and vomiting Stop: 05/10/21 02:44 Last Admin: 04/15/21 07:14 Dose: 25 mg Documented by: Spironolactone (Spironolactone 12.5 Mg Tab) 12.5 mg PO DAILY [facility] Stop: 05/10/21 08:59 Last Admin: 04/10/21 08:17 Dose: 12.5 mg Documented by: Vitamin D (Cholecalciferol 1,000 Units 25 Mcg Tab) 1,000 units PO QAM [facility] Stop: 05/10/21 08:59 Last Admin: 04/15/21 08:38 Dose: 1,000 units Documented by:
[2021-04-15] MEDS: ATORVASTATIN 40 MG TAB PO SCH (21:35)
[2021-04-15] MEDS: BIMATOPROST 0.01% OP SOLN 2.5 ML BTL OP SCH (21:35)
[2021-04-15] MEDS: MELATONIN 3 MG TAB PO SCH (21:37)
[2021-04-16] MEDS: INSULIN ASPART 100 UNITS/ML 3 ML PEN SC SCH ×5 (00:02→21:05)
[2021-04-16] MEDS: SODIUM CHLORIDE 0.9% 1000ML 1,000 ML IV SCH ×2 (00:03→08:21)
[2021-04-16] MEDS: HYDROCORTISONE SOD 50 MG in SYRINGE 0 ML IV SCH ×2 (00:10→08:05)
[2021-04-16] MEDS: HEPARIN SOD 5,000 UNIT/0.5 ML VIAL SQ SCH ×3 (03:23→21:06)
[2021-04-16] MEDS: ERTAPENEM SODIUM 1,000 MG in SODIUM CHLORIDE 0.9% 50 ML IV SCH (03:23)
--- NOTE | 2021-04-16 06:29 | Electrocardiogram Report ---
Test Reason : Blood Pressure : / mmHG Vent. Rate : 074 BPM Atrial Rate : 064 BPM P-R Int : 000 ms QRS Dur : 132 ms QT Int : 378 ms P-R-T Axes : 000 -44 124 degrees QTc Int : 419 ms Atrial fibrillation with premature ventricular or aberrantly conducted complexes Left axis deviation Non-specific intra-ventricular conduction block T wave abnormality, consider lateral ischemia Abnormal ECG When compared with ECG of 14-APR-2021 10:49, No significant change was found Confirmed by Trav Brar ([id number]) on 04/16/2021 6:29:27 AM Referred By: REFERRED SELF Confirmed By:Trav Brar
[2021-04-16] MEDS: CHOLECALCIFEROL 1,000 UNITS 25 MCG TAB PO SCH (08:06)
[2021-04-16] MEDS: FLUDROCORTISONE ACETATE 0.1 MG TAB PO SCH (08:06)
[2021-04-16] MEDS: DICYCLOMINE HCL 20 MG TAB PO SCH ×2 (08:06→21:10)
[2021-04-16] MEDS: PANTOprazole 40 MG TAB PO SCH ×2 (08:06→21:11)
[2021-04-16] MEDS: ADVANCED PROBIOTIC 1250 MG CAPSULE PO SCH (08:07)
[2021-04-16] MEDS: methIMAzole 5 MG TABLET PO SCH (08:07)
[2021-04-16] MEDS: FERROUS SULFATE 325 MG TAB PO SCH (08:07)
[2021-04-16] MEDS: ASPIRIN 81 MG ECTAB PO SCH (08:07)
[2021-04-16] MEDS: MULTIVITAMIN TAB PO SCH (08:07)
[2021-04-16] MEDS: BRINZOLAMIDE (AZOPT) OPS 10 ML BTL OPB SCH ×2 (08:08→21:06)
[2021-04-16] MEDS: FLUTICASONE/VILANTEROL 100/25MCG 14 PUFFS/INHALER INH SCH (08:09)
[2021-04-16] MEDS: DOCUSATE SODIUM 100 MG CAP PO SCH (08:14)
[2021-04-16] MEDS: IPRATROPIUM BROMIDE NEB SOLN 0.02% 2.5 ML VIAL INH PRN (08:18)
[2021-04-16] MEDS: LEVALBUTEROL 1.25MG/0.5ML NEB INH PRN (08:18)
[2021-04-16 08:55] LABS: Hematocrit (blood only) 34.7 % (37-47); Hemoglobin 10.8 g/dL (12.0-16.0); Mean Corpuscular Hemoglobin 28.6 pg (25-34); Mean Corpuscular Hgb Conc 31.1 g/dL (32-36); Mean Corpuscular Volume 91.8 fL (80-100); Mean Platelet Volume 9.7 fL (7.4-10.4); Nucleated RBC # (auto) 0.02 K/uL (0-0); Nucleated RBC % (auto) 0.2 %; Platelet Count 349 K/uL (130-400); RDW Coefficient of Variation 14.9 % (11.5-14.5); RDW Standard Deviation 50.2 fL (36.4-46.3); Red Blood Count 3.78 M/uL (4.2-5.4)
[2021-04-16 09:26] LABS: BUN Creatinine Ratio 17.9 (10-20); Calcium 8.6 mg/dl (8.5-10.1); Creatinine Clr Calc Pharmacy 56.8 ml/min; Est GFR (Non-African American) 54.4 ml/min; Magnesium 1.9 mg/dl (1.8-2.4); Potassium 3.6 mmol/L (3.5-5.1)
[2021-04-16] MEDS: FUROSEMIDE 40 MG TAB PO SCH (10:30)
--- NOTE | 2021-04-16 12:56 | Cardiology Progress Note ---
Date of Service April 16, 2021 Assessment & Plan (1) Hypotension: (2) Adrenal insufficiency: (3) Chronic atrial fibrillation: (4) Chronic HFrEF (heart failure with reduced ejection fraction): (5) JOSE DAVID (acute kidney injury): (6) UTI due to extended-spectrum beta lactamase (ESBL) producing Escherichia coli: (7) Hyponatremia: (8) Subclinical hyperthyroidism: (9) NICM (nonischemic cardiomyopathy): (10) JORDAN (obstructive sleep apnea): (11) Chronic respiratory failure with hypoxia and hypercapnia: (12) Asthma: (13) COPD (chronic obstructive pulmonary disease): (14) Diabetes mellitus, type 2: Vital signs have stabilized with medication adjustments. No further bradycardia arrhythmias or pauses overnight. 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 Obviously, ongoing infection would preclude permanent pacemaker placement. Currently she is clinically stable but should she deteriorate would recommend initiation of dopamine, consideration for temporary pacer may also be given. Does have watchman device in place and now on anticoagulation. Historically has not followed with our cardiology practice and was first seen after admission here in February, previously followed with Dr. Gutierrez pinto and electrophysiology in [place]. No further cardiac test intervention necessary Admission and Anticipated Discharge Date Admission Date: April 10, 2021 Subjective Patient seen and examined, chart reviewed. States that she remains fatigued but denies chest pain, palpitations or shortness of breath. Telemetry reviewed: Atrial fibrillation in the 60s to 70s without bradycardia arrhythmias or pauses Review of Systems Review of Systems: All systems reviewed & are unremarkable except as noted in HPI & below Physical Exam Physical Exam: General: Awake, alert and oriented x 3. No acute distress. HEENT: Normocephalic, atraumatic. Pupils equal, round and reactive to light and accommodation. Extraocular muscles are intact. Anicteric sclera. Moist mucous membranes. Neck: No JVD. No bruit. Cardiovascular: irregularly irregular, unable to appreciate murmur, rub or gallop. Pulmonary: Clear to auscultation bilaterally. No rales, rhonchi, or wheezing. Abdomen: Bowel sounds x 4, soft. No rebound, guarding or tenderness. No organomegaly. Extremities: No clubbing, cyanosis or edema. +2 pedal pulses bilaterally. Skin: Warm and dry. Results & Data ([facility]) Vital Signs (Past 12 Hours) Vital Signs Temp Pulse Resp BP BP Pulse Ox 04/16/21 10:54 36.8 C 74 19 134/85 97 04/16/21 08:19 68 16 97 04/16/21 07:32 36.5 C 69 19 129/79 97 04/16/21 04:52 36.8 C 60 18 136/79 97
[2021-04-16] MEDS: FUROSEMIDE 20 MG TAB PO SCH (17:27)
--- NOTE | 2021-04-16 17:57 | Hospitalist Progress Note ---
Date of Service April 16, 2021 Assessment & Plan (1) Chris-tachy syndrome: Initial bradycardia was resolved with IVF and additional mineralocorticoid support with fludrocortisone. Cont plan per cardiology-no immediate intervention in the setting of infection. (2) Adrenal insufficiency: improved hemodynamics on hydrocortisone, fludrocortisone and IVF. Stopped IVF. Discussed with endo (Dr. Voss) appropriate weaning given this clinical scenario. Recommended decadron 1.5mg now (am), followed by PO Cortef regimen tomorrow with continued wean as outpatient. Additionally, cosyntropin stim test to be ordered for am. (3) Abdominal discomfort: improved, was possibly related to underlying acute diverticulitis reportedly ongoing for 3 weeks per patient vs adrenal issues. Improved and tolerating PO. Pelvic us in am after finding of left sided oophoritis and thickened uterus on imaging. (4) UTI due to extended-spectrum beta lactamase (ESBL) producing Escherichia coli: Bactrim given for suspected UTI, changed on admission 04/10 to to Invanz when culture came back positive for ESBL E. coli. Continue Invanz for now pending clinical improvement. (5) Acute diverticulitis: Abdominal pain is improved. Cont abx for now until this is stable. (6) Dyspnea: She has history of COPD/asthma and has been on home oxygen, 2 L during the day and 4 L at night. She is at her baseline. Current symptoms attributed to adrenal insufficiency. Improved per her report. (7) Hypotension: resolved with above therapies. (8) JOSE DAVID (acute kidney injury): Creatinine elevated to 1.4 on admission likely secondary to Bactrim use, dehydration in setting of infection and ongoing diuretic use. Resolved to baseline after holding diuretics and lisinopril. (9) Chronic respiratory failure with hypoxia and hypercapnia: 2/2 COPD. Appears stable, no wheezing or worsening hypoxia or SOB. Has been on home oxygen, 2 L via nasal cannula during the day and 4 L at night (10) COPD (chronic obstructive pulmonary disease): Appears stable without evidence of wheezing, sputum changes or coughing. There is some dyspnea however she appears to be improved. bronchodilators PRN (11) Chronic HFrEF (heart failure with reduced ejection fraction): Known h/o NICM-recent med optimization after recent hospitalization one month ago. Diuretics held as above-giving IVF. Continue daily weights, low- sodium diet, strict ins and outs. (12) Chronic atrial fibrillation: Controlled with Coreg and digoxin. Holding Coreg at this time secondary to hypotension and bradycardia. Continue digoxin therapy-low level checked 04/13. Not on anticoagulation. Followed by [facility] cardiology. (13) JORDAN (obstructive sleep apnea): Does not use any CPAP and/or BiPAP (14) Diabetes mellitus, type 2: controlled on SSI inpatient. Recent A1C is 7.1. Cont correction factor insulin with carb coverage for now. Added glargine and tightened scale with added steroids in anticipation of hyperglycemia. (15) DVT prophylaxis: Heparin Full Code Dispo--cont PCU monitoring. Home when medically cleared for discharge. Ruby Begum DO [facility] Hospitalist Admission and Anticipated Discharge Date Admission Date: April 10, 2021 Subjective Mrs. Harrington is an 80-year-old female with a known history of heart failure and persistent atrial fibrillation who also has chronic hypoxic respiratory failure secondary to COPD who presented with worsening shortness of breath. Creatinine was 1.45 on admission with a baseline of 0.8-0.9. This improved closer to baseline with holding her diuretics and lisinopril and with some fluids that were given. She was admitted with an ESBL E. coli UTI and was transitioned from Bactrim as an outpatient to [facility]. She was hypotensive despite fluids and antibiotics. Concern for adrenal insufficiency developed and her random cortisol was low. Started on hydrocortisone IV 04/12. Didn't improve right away and CT a/p with contrast revealed acute diverticulitis in area where she has had recurrent infections-no obvious complications. Fludrocortisone was added. Cardiology eval and she has ?tachybrady syndrome. Hemodynamics improved with fludrocortisone and IVF. Today abdominal pain is resolved and she is less fatigued although tired because of not sleeping well last night. Looking better clinically. Tolerating PO, still reporting some residual abdominal discomfort in her LLQ and LUQ Review of Systems Review of Systems: All systems reviewed & are unremarkable except as noted in Subjective Physical Exam Physical Exam: CONSTITUTIONAL: obese, vitals as above, generally NAD, appears improved clinically. EYES: normal conjunctivae, no scleral icterus ENT: external ear and nose normal RESPIRATORY: clear to auscultation bilaterally, no crackles, rales or wheezes, normal respiratory effort CARDIOVASCULAR: irregular rate and irregular rhythm, S1 and 2 heard without murmurs, gallops or rubs, no JVD, no peripheral edema GASTROINTESTINAL: soft, LUQ pain, suprapubic tenderness, no distension MUSCULOSKELETAL: strength 5/5 throughout, head is normocephalic and atraumatic SKIN: warm and dry NEUROLOGIC: CN 2-12 grossly intact, no sensory deficit, normal cognition, normal speech, no gross focal deficits PSYCHIATRIC: alert cooperative and oriented to person, place and time Results & Data Results & Data ([facility]) Vital Signs (Past 12 Hours) Vital Signs Temp Pulse Resp BP Pulse Ox 04/16/21 15:19 36.9 C 59 L 18 136/64 97 04/16/21 10:54 36.8 C 74 19 134/85 97 04/16/21 08:19 68 16 97 04/16/21 07:32 36.5 C 69 19 129/79 97 Laboratory Results Short CBC 04/16/21 Range/Units 08:42 WBC 12.40 H (4.8-10.8) K/uL Hgb 10.8 L (12.0-16.0) g/dL Hct 34.7 L (37-47) % Plt Count 349 (130-400) K/uL BMP 04/16/21 08:42 Sodium 142 Potassium 3.6 Chloride 106 Carbon Dioxide 32 BUN 17 Creatinine 0.97 Glucose 169 H Calcium 8.6 Medications Administered Current Inpatient Medications Acetaminophen (Acetaminophen 325 Mg Tab) 650 mg PO Q4H PRN PRN Reason: Pain or Fever Stop: 05/10/21 02:44 Hydrocodone Bitart/Acetaminophen (Hydrocodone/Acetamophen 5/325mg Tab) 1 tab PO Q6H PRN PRN Reason: Pain Stop: 04/24/21 02:44 Last Admin: 04/15/21 21:34 Dose: 1 tab Documented by: Albuterol (Albuterol Hfa 8 Gm Inhaler) 2 puffs INH QID PRN PRN Reason: Shortness Of Breath Stop: 05/10/21 02:44 Last Admin: 04/14/21 11:52 Dose: 2 puffs Documented by: Aspirin (Aspirin 81 Mg Ectab) 81 mg PO DAILY ANDREA Stop: 05/10/21 08:59 Last Admin: 04/16/21 08:07 Dose: 81 mg Documented by: Atorvastatin Calcium (Atorvastatin 40 Mg Tab) 40 mg PO HS ANDREA Stop: 05/10/21 20:59 Last Admin: 04/15/21 21:35 Dose: 40 mg Documented by: Bimatoprost (Bimatoprost 0.01% Op Soln 2.5 Ml Btl) 1 drops OP HS ANDREA Stop: 05/10/21 20:59 Last Admin: 04/15/21 21:35 Dose: 1 drops Documented by: Brinzolamide (Brinzolamide (Azopt) Ops 10 Ml Btl) 1 drops OPB BID ANDREA Stop: 05/10/21 08:59 Last Admin: 04/16/21 08:08 Dose: 1 drops Documented by: Carvedilol (Carvedilol 6.25 Mg Tab) 6.25 mg PO BID [facility] Stop: 05/10/21 08:59 Last Admin: 04/11/21 07:56 Dose: Not Given Documented by: Dextrose (Dextrose 50% 50 Ml Syringe) 25 - 50 ml IV UD PRN; Protocol PRN Reason: Hypoglycemia Protocol Stop: 05/10/21 03:44 Dicyclomine HCl (Dicyclomine Hcl 20 Mg Tab) 20 mg PO BID [facility] Stop: 05/10/21 08:59 Last Admin: 04/16/21 08:06 Dose: 20 mg Documented by: Docusate Sodium (Docusate Sodium 100 Mg Cap) 100 mg PO QAM [facility] Stop: 05/10/21 08:59 Last Admin: 04/16/21 08:14 Dose: 100 mg Documented by: Ertapenem (Ertapenem Consult Active) 1 ea N/A UD PRN PRN Reason: Consult Stop: 05/10/21 03:22 Ferrous Sulfate (Ferrous Sulfate 325 Mg Tab) 325 mg PO QAM [facility] Stop: 05/10/21 08:59 Last Admin: 04/16/21 08:07 Dose: 325 mg Documented by: Fludrocortisone Acetate (Fludrocortisone Acetate 0.1 Mg Tab) 0.1 mg PO QAM [facility] Stop: 05/14/21 12:14 Last Admin: 04/16/21 08:06 Dose: 0.1 mg Documented by: Fluticasone/Vilanterol (Fluticasone/Vilanterol 100/25mcg 14 Puffs/Inhaler) 1 puffs INH DAILY [facility] Stop: 05/10/21 08:59 Last Admin: 04/16/21 08:09 Dose: 1 puffs Documented by: Furosemide (Furosemide 40 Mg Tab) 40 mg PO 1700 [facility] Stop: 05/10/21 16:59 Last Admin: 04/10/21 17:40 Dose: 40 mg Documented by: Furosemide (Furosemide 80 Mg Tab) 80 mg PO QAM [facility] Stop: 05/10/21 08:59 Last Admin: 04/10/21 10:20 Dose: 80 mg Documented by: Furosemide (Furosemide 40 Mg Tab) 40 mg PO QAM [facility] Stop: 05/16/21 09:59 Last Admin: 04/16/21 10:30 Dose: 40 mg Documented by: Furosemide (Furosemide 20 Mg Tab) 20 mg PO DAILY@1700 [facility] Stop: 05/16/21 16:59 Last Admin: 04/16/21 17:27 Dose: 20 mg Documented by: Glucagon (Glucagon For Inj 1 Mg Vial) 1 mg IM UD PRN; Protocol PRN Reason: Hypoglycemia Protocol Stop: 05/10/21 03:44 Glucose (Glucose 40% Gel 15 Gm Tube) 15 - 30 gm PO UD PRN; Protocol PRN Reason: Hypoglycemia Protocol Stop: 05/10/21 03:44 Glucose (Glucose 10 Tabs/Tube) 4 - 8 tabs PO UD PRN; Protocol PRN Reason: Hypoglycemia Protocol Stop: 05/10/21 03:44 Glycerin (Glycerin Adult 12 Supp/Box Supp) 1 supp GA DAILY PRN PRN Reason: Constipation Stop: 05/13/21 11:50 Heparin Sodium (Porcine) (Heparin Sod 5,000 Unit/0.5 Ml Vial) 5,000 units SQ Q8 ANDREA Stop: 05/11/21 13:59 Last Admin: 04/16/21 12:31 Dose: Not Given Documented by: Hydrocortisone (Hydrocortisone 10 Mg Tab) 40 mg PO QAM [facility] Stop: 05/17/21 08:59 Hydrocortisone (Hydrocortisone 10 Mg Tab) 20 mg PO QPM [facility] Stop: 05/16/21 20:59 Ertapenem 1,000 mg/ Sodium (Chloride) 60 mls @ 100 mls/hr IV Q24H [facility]; Protocol Stop: 04/20/21 03:59 Last Infusion: 04/16/21 03:59 Dose: Infused Documented by: Insulin Aspart (Insulin Aspart 100 Units/Ml 3 Ml Pen) 0 units SC ACHS [facility] Stop: 05/10/21 03:59 Last Admin: 04/16/21 17:26 Dose: 5 units Documented by: Ipratropium [place] (Ipratropium [place] Neb Soln 0.02% 2.5 Ml Vial) 0.5 mg INH Q6R PRN PRN Reason: SOB/wheezing Stop: 05/10/21 06:59 Last Admin: 04/16/21 08:18 Dose: 0.5 mg Documented by: Lactobacillus Acidoph/Casei/Rhamnos (Advanced Probiotic 1250 Mg Capsule) 2 cap PO QAM ANDREA Stop: 05/10/21 08:59 Last Admin: 04/16/21 08:07 Dose: 2 cap Documented by: Levalbuterol HCl (Levalbuterol 1.25mg/0.5ml Neb) 1.25 mg INH Q6R PRN PRN Reason: SOB/wheezing Stop: 05/10/21 06:59 Last Admin: 04/16/21 08:18 Dose: 1.25 mg Documented by: Lisinopril (Lisinopril 2.5 Mg Tab) 2.5 mg PO DAILY [facility] Stop: 05/10/21 08:59 Last Admin: 04/11/21 08:01 Dose: Not Given Documented by: Melatonin (Melatonin 3 Mg Tab) 3 mg PO HS [facility] Stop: 05/13/21 20:59 Last Admin: 04/15/21 21:37 Dose: Not Given Documented by: Methimazole (Methimazole 5 Mg Tablet) 10 mg PO DAILY ANDREA Stop: 05/10/21 08:59 Last Admin: 04/16/21 08:07 Dose: 10 mg Documented by: Miscellaneous (Zafirkulast~Order Awaiting Action) 1 ea N/A QS [facility] Stop: 05/10/21 07:59 Last Admin: 04/16/21 08:05 Dose: Not Given Documented by: Miscellaneous (Carbohydrates For Hypoglycemia ) 15 - 30 gm PO UD PRN PRN Reason: Hypoglycemia Treatment Stop: 05/10/21 03:44 Multivitamins (Multivitamin Tab) 1 tab PO QAM ANDREA Stop: 05/10/21 08:59 Last Admin: 04/16/21 08:07 Dose: 1 tab Documented by: Nitroglycerin (Nitroglycerin Sl 0.4 Mg/Tab Tab) 0.4 mg SL UD PRN PRN Reason: Chest Pain Stop: 05/10/21 02:44 Ondansetron HCl (Ondansetron Inj 2 Mg/Ml 2 Ml Vial) 4 mg IV Q6H PRN PRN Reason: Nausea Stop: 05/10/21 02:44 Last Admin: 04/14/21 17:36 Dose: 4 mg Documented by: Pantoprazole Sodium (Pantoprazole 40 Mg Tab) 40 mg PO BID ADNREA Stop: 05/10/21 08:59 Last Admin: 04/16/21 08:06 Dose: 40 mg Documented by: Polyethylene Glycol (Polyethylene (Miralax) 17 Gm Pack) 17 gm PO BID PRN PRN Reason: Constipation Stop: 05/10/21 02:44 Potassium Chloride (Potassium Chloride Crtab 20 Meq Tabcr) 20 meq PO DAILY [facility] Stop: 05/10/21 08:59 Last Admin: 04/10/21 08:17 Dose: 20 meq Documented by: Promethazine HCl (Promethazine Hcl 25 Mg Tab) 25 mg PO Q6H PRN PRN Reason: nausea and vomiting Stop: 05/10/21 02:44 Last Admin: 04/15/21 21:34 Dose: 25 mg Documented by: Spironolactone (Spironolactone 12.5 Mg Tab) 12.5 mg PO DAILY [facility] Stop: 05/10/21 08:59 Last Admin: 04/10/21 08:17 Dose: 12.5 mg Documented by: Vitamin D (Cholecalciferol 1,000 Units 25 Mcg Tab) 1,000 units PO QAM [facility] Stop: 05/10/21 08:59 Last Admin: 04/16/21 08:06 Dose: 1,000 units Documented by:
[2021-04-16] MEDS ORDERED: HYDROCORTISONE 10 MG TAB PO SCH (21:00)
[2021-04-16] MEDS: MELATONIN 3 MG TAB PO SCH (21:06)
[2021-04-16] MEDS: BIMATOPROST 0.01% OP SOLN 2.5 ML BTL OP SCH (21:07)
[2021-04-16] MEDS: PROMETHAZINE HCL 25 MG TAB PO PRN (21:09)
[2021-04-16] MEDS: HYDROCODONE/ACETAMOPHEN 5/325MG TAB PO PRN (21:09)
[2021-04-16] MEDS: ATORVASTATIN 40 MG TAB PO SCH (21:11)
[2021-04-17] MEDS: MELATONIN 3 MG TAB PO SCH (00:18)
[2021-04-17] MEDS: HEPARIN SOD 5,000 UNIT/0.5 ML VIAL SQ SCH ×3 (00:19→21:11)
[2021-04-17] MEDS: ERTAPENEM SODIUM 1,000 MG in SODIUM CHLORIDE 0.9% 50 ML IV SCH (04:29)
[2021-04-17] MEDS ORDERED: COSYNTROPIN 250 MCG in SYRINGE 4 ML IV ONE (08:00)
[2021-04-17] MEDS: HYDROCODONE/ACETAMOPHEN 5/325MG TAB PO PRN ×2 (08:34→20:30)
[2021-04-17] MEDS: ASPIRIN 81 MG ECTAB PO SCH (08:37)
[2021-04-17] MEDS: CHOLECALCIFEROL 1,000 UNITS 25 MCG TAB PO SCH (08:38)
[2021-04-17] MEDS: BRINZOLAMIDE (AZOPT) OPS 10 ML BTL OPB SCH ×2 (08:38→20:25)
[2021-04-17] MEDS: DICYCLOMINE HCL 20 MG TAB PO SCH ×2 (08:39→20:25)
[2021-04-17] MEDS: FLUDROCORTISONE ACETATE 0.1 MG TAB PO SCH (08:40)
[2021-04-17] MEDS: FLUTICASONE/VILANTEROL 100/25MCG 14 PUFFS/INHALER INH SCH (08:41)
[2021-04-17] MEDS: ADVANCED PROBIOTIC 1250 MG CAPSULE PO SCH (08:41)
[2021-04-17] MEDS: FERROUS SULFATE 325 MG TAB PO SCH (08:42)
[2021-04-17] MEDS: PANTOprazole 40 MG TAB PO SCH ×2 (08:43→20:25)
[2021-04-17] MEDS: MULTIVITAMIN TAB PO SCH (08:43)
[2021-04-17] MEDS: methIMAzole 5 MG TABLET PO SCH (08:43)
[2021-04-17 08:49] LABS: BUN Creatinine Ratio 20.1 (10-20); Creatinine Clr Calc Pharmacy 61.7 ml/min; Est GFR (Non-African American) 60.4 ml/min; Potassium 3.3 mmol/L (3.5-5.1)
[2021-04-17] MEDS ORDERED: HYDROCORTISONE 10 MG TAB PO SCH (09:00)
[2021-04-17] MEDS: INSULIN ASPART 100 UNITS/ML 3 ML PEN SC SCH ×4 (09:34→21:03)
[2021-04-17] MEDS: FUROSEMIDE 40 MG TAB PO SCH (09:37)
[2021-04-17] MEDS: HYDROCORTISONE 10 MG TAB PO SCH (10:22)
[2021-04-17] MEDS: DOCUSATE SODIUM 100 MG CAP PO SCH (11:19)
--- NOTE | 2021-04-17 11:52 | Ultrasound Report ---
EXAMINATION: PELVIC ULTRASOUND CLINICAL HISTORY: L oophoritis on CT COMPARISON STUDY: None. Correlation is made with CT of the abdomen performed on April 13, 2021 FINDINGS: The uterus measured 8.0 x 4.1 x 2.6 cm in size small amount of fluid is seen within uterine cavity.. The endometrial stripe measured 1.0 cm. Ovaries were not visualized on this transabdominal study. Patient refused transvaginal exam. No adnex al mass seen. IMPRESSION: 1. Fluid-filled uterine cavity, endometrial stripe is measuring 1.0 cm. No definite uterine mass see n on this limited study. 2. Ovaries were not visualized. 3. Patient refused transvaginal exam. ACT 112: Negative or not required by law. The above report was generated using voice recognition software. It may contain grammatical, syntax o r spelling errors. Electronically signed by: Nathalie Shelby DO 04/17/2021 11:50 AM
[2021-04-17] MEDS ORDERED: POTASSIUM CHLORIDE CRTAB 20 MEQ TABCR PO STA (12:45)
--- NOTE | 2021-04-17 13:10 | Cardiology Progress Note ---
Date of Service April 17, 2021 Assessment & Plan (1) Hypotension: (2) Adrenal insufficiency: (3) Chronic atrial fibrillation: (4) Chronic HFrEF (heart failure with reduced ejection fraction): (5) JOSE DAVID (acute kidney injury): (6) UTI due to extended-spectrum beta lactamase (ESBL) producing Escherichia coli: (7) Hyponatremia: (8) Subclinical hyperthyroidism: (9) NICM (nonischemic cardiomyopathy): (10) JORDAN (obstructive sleep apnea): (11) Chronic respiratory failure with hypoxia and hypercapnia: (12) Asthma: (13) COPD (chronic obstructive pulmonary disease): (14) Diabetes mellitus, type 2: Vital signs have stabilized with medication adjustments. No further bradycardia arrhythmias or pauses overnight. 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 Obviously, ongoing infection would preclude permanent pacemaker placement. Currently she is clinically stable but should she deteriorate would recommend initiation of dopamine, consideration for temporary pacer may also be given. Does have watchman device in place and now on anticoagulation. Historically has not followed with our cardiology practice and was first seen after admission here in February, previously followed with Dr. Gutierrez pinto and electrophysiology in [place]. No further cardiac test intervention necessary Admission and Anticipated Discharge Date Admission Date: April 10, 2021 Subjective Patient seen and examined, chart reviewed. States that she remains fatigued but overall strength has improved since admission. Denies cardiac complaints of chest pain, shortness of breath, palpitations or lightheadedness. Review of Systems Review of Systems: All systems reviewed & are unremarkable except as noted in HPI & below Physical Exam Physical Exam: General: Awake, alert and oriented x 3. No acute distress. HEENT: Normocephalic, atraumatic. Pupils equal, round and reactive to light and accommodation. Extraocular muscles are intact. Anicteric sclera. Moist mucous membranes. Neck: No JVD. No bruit. Cardiovascular: irregularly irregular, unable to appreciate murmur, rub or gallop. Pulmonary: Clear to auscultation bilaterally. No rales, rhonchi, or wheezing. Abdomen: Bowel sounds x 4, soft. No rebound, guarding or tenderness. No organomegaly. Extremities: No clubbing, cyanosis or edema. +2 pedal pulses bilaterally. Skin: Warm and dry. Results & Data ([facility]) Vital Signs (Past 12 Hours) Vital Signs Temp Pulse Pulse Resp BP BP Pulse Ox 04/17/21 11:16 36.8 C 75 18 134/76 98 04/17/21 07:20 64 04/17/21 07:11 36.5 C 82 18 148/95 H 95 04/17/21 05:03 36.4 C L 75 20 163/91 H 157/90 H 97
--- NOTE | 2021-04-17 13:52 | Hospitalist Progress Note ---
Date of Service April 17, 2021 Assessment & Plan (1) Chris-tachy syndrome: Initial bradycardia was resolved with IVF and additional mineralocorticoid support with fludrocortisone. Cont plan per cardiology-no immediate intervention in the setting of infection. 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 Stopped IVF. Discussed with endo (Dr. Voss) appropriate weaning given this clinical scenario. Recommended decadron 1.5mg now (am), followed by PO Cortef regimen tomorrow with continued wean as outpatient. Cosyntropin test was not performed as patient ate this morning. Try to contact Dr. Voss, still awaiting return call Patient is clinically much better and plan to be discharged tomorrow on oral hydrocortisone replacement doses (3) Abdominal discomfort: Improved, was possibly related to underlying acute diverticulitis reportedly ongoing for 3 weeks per patient vs adrenal issues. Improved and tolerating PO. Pelvic us in am after finding of left sided oophoritis and thickened uterus on imaging.-No significant thickening of the uterine montemayor but the patient refused to have transvaginal procedure We will need to have an outpatient FORECLOSURE CLERK appointment if symptoms persist (4) UTI due to extended-spectrum beta lactamase (ESBL) producing Escherichia coli: Bactrim given for suspected UTI, changed on admission 04/10 to to Invanz when culture came back positive for ESBL E. coli. Continue Invanz for now pending clinical improvement. Clinically much better and will discontinue antibiotic on discharge (5) Acute diverticulitis: Abdominal pain is improved. Cont abx for now until this is stable. Denies any abdominal pain Discontinue antibiotic as above (6) Dyspnea: She has history of COPD/asthma and has been on home oxygen, 2 L during the day and 4 L at night. She is at her baseline. Current symptoms attributed to adrenal insufficiency. Improved per her report. (7) Hypotension: Resolved with above therapies. (8) JOSE DAVID (acute kidney injury): Creatinine elevated to 1.4 on admission likely secondary to Bactrim use, dehydration in setting of infection and ongoing diuretic use. Resolved to baseline after holding diuretics and lisinopril. (9) Chronic respiratory failure with hypoxia and hypercapnia: 2/2 COPD. Appears stable, no wheezing or worsening hypoxia or SOB. Has been on home oxygen, 2 L via nasal cannula during the day and 4 L at night (10) COPD (chronic obstructive pulmonary disease): Appears stable without evidence of wheezing, sputum changes or coughing. There is some dyspnea however she appears to be improved. bronchodilators PRN (11) Chronic HFrEF (heart failure with reduced ejection fraction): Known h/o NICM-recent med optimization after recent hospitalization one month ago. Continue daily weights, low-sodium diet, strict ins and outs. Has been back on her oral diuretics (12) Chronic atrial fibrillation: Controlled with Coreg and digoxin. Holding Coreg at this time secondary to hypotension and bradycardia. Continue digoxin therapy-low level checked 04/13. Not on anticoagulation. Followed by [facility] cardiology-in the hospital. (13) JORDAN (obstructive sleep apnea): Does not use any CPAP and/or BiPAP (14) Diabetes mellitus, type 2: controlled on SSI inpatient. Recent A1C is 7.1. Cont correction factor insulin with carb coverage for now. Added glargine and tightened scale with added steroids in anticipation of hyperglycemia. (15) DVT prophylaxis: Heparin Full Code Dispo--cont PCU monitoring. Home when medically cleared for discharge. Admission and Anticipated Discharge Date Admission Date: April 10, 2021 Subjective 04/10/2021 The patient was seen and examined in medical telemetry unit She complains to have some epigastric discomfort with nausea but no vomiting She has been complaining of more shortness of breath with minimal exertion without any wheezing Has had problem with voiding with dysuria and frequency No fever and no chills 04/17/2021 The patient was seen and examined in telemetry unit I saw her on following admission to the hospital and seeing her today She has been feeling a lot better Complains to have minimal nausea but no vomiting and has been feeling better generally Review of Systems Review of Systems: All systems reviewed and are unremarkable except as noted below Respiratory: + dyspnea on exertion; no cough Gastrointestinal: + nausea; no abdominal pain and no vomiting Physical Exam Physical Exam: Lying in bed with minimal distress due to shortness of breath Constitutional: well developed, well nourished and + obese; not ill appearing Eyes: PERRL, conjunctivae normal, anicteric sclerae ENMT: external ear and nose normal, oropharynx normal Neck: trachea midline, no thyromegaly Respiratory: + respiratory distress (Minimal distress at rest) Auscultation: + diminished lung sounds and + wheezes (Very minimal wheezing); no crackles Cardiovascular: Rate/Rhythm: regular rate and regular rhythm Heart Sounds: no murmur Extremities: + edema (Trace edema bilaterally) Gastrointestinal (Abdomen): Inspection/Auscultation: abdomen not distended Percussion/Palpation: abdomen soft; abdomen nontender Musculoskeletal: No acute arthritis in any joint Neurologic: Alert, awake and oriented x3. Generally weak but no focal neuro deficit Psychiatric: A+Ox3, euthymic affect Lymphatic: no cervical or axillary lymphadenopathy Results & Data Results & Data ([facility]) Vital Signs (Past 12 Hours) Vital Signs Temp Pulse Pulse Resp BP BP Pulse Ox 04/17/21 11:16 36.8 C 75 18 134/76 98 04/17/21 07:20 64 04/17/21 07:11 36.5 C 82 18 148/95 H 95 04/17/21 05:03 36.4 C L 75 20 163/91 H 157/90 H 97 Laboratory Results BMP 04/17/21 08:03 Sodium 142 Potassium 3.3 L Chloride 103 Carbon Dioxide 36 H BUN 18 Creatinine 0.89 Glucose 125 H Calcium 9.0 Medications Administered Current Inpatient Medications Acetaminophen (Acetaminophen 325 Mg Tab) 650 mg PO Q4H PRN PRN Reason: Pain or Fever Stop: 05/10/21 02:44 Hydrocodone Bitart/Acetaminophen (Hydrocodone/Acetamophen 5/325mg Tab) 1 tab PO Q6H PRN PRN Reason: Pain Stop: 04/24/21 02:44 Last Admin: 04/17/21 08:34 Dose: 1 tab Documented by: Albuterol (Albuterol Hfa 8 Gm Inhaler) 2 puffs INH QID PRN PRN Reason: Shortness Of Breath Stop: 05/10/21 02:44 Last Admin: 04/14/21 11:52 Dose: 2 puffs Documented by: Aspirin (Aspirin 81 Mg Ectab) 81 mg PO DAILY ANDREA Stop: 05/10/21 08:59 Last Admin: 04/17/21 08:37 Dose: 81 mg Documented by: Atorvastatin Calcium (Atorvastatin 40 Mg Tab) 40 mg PO HS ANDREA Stop: 05/10/21 20:59 Last Admin: 04/16/21 21:11 Dose: 40 mg Documented by: Bimatoprost (Bimatoprost 0.01% Op Soln 2.5 Ml Btl) 1 drops OP HS ANDREA Stop: 05/10/21 20:59 Last Admin: 04/16/21 21:07 Dose: 1 drops Documented by: Brinzolamide (Brinzolamide (Azopt) Ops 10 Ml Btl) 1 drops OPB BID ANDREA Stop: 05/10/21 08:59 Last Admin: 04/17/21 08:38 Dose: 1 drops Documented by: Carvedilol (Carvedilol 6.25 Mg Tab) 6.25 mg PO BID ANDREA Stop: 05/10/21 08:59 Last Admin: 04/11/21 07:56 Dose: Not Given Documented by: Dextrose (Dextrose 50% 50 Ml Syringe) 25 - 50 ml IV UD PRN; Protocol PRN Reason: Hypoglycemia Protocol Stop: 05/10/21 03:44 Dicyclomine HCl (Dicyclomine Hcl 20 Mg Tab) 20 mg PO BID [facility] Stop: 05/10/21 08:59 Last Admin: 04/17/21 08:39 Dose: 20 mg Documented by: Docusate Sodium (Docusate Sodium 100 Mg Cap) 100 mg PO QAM [facility] Stop: 05/10/21 08:59 Last Admin: 04/17/21 11:19 Dose: 100 mg Documented by: Ertapenem (Ertapenem Consult Active) 1 ea N/A UD PRN PRN Reason: Consult Stop: 05/10/21 03:22 Ferrous Sulfate (Ferrous Sulfate 325 Mg Tab) 325 mg PO QAM [facility] Stop: 05/10/21 08:59 Last Admin: 04/17/21 08:42 Dose: 325 mg Documented by: Fludrocortisone Acetate (Fludrocortisone Acetate 0.1 Mg Tab) 0.1 mg PO QAM [facility] Stop: 05/14/21 12:14 Last Admin: 04/17/21 08:40 Dose: 0.1 mg Documented by: Fluticasone/Vilanterol (Fluticasone/Vilanterol 100/25mcg 14 Puffs/Inhaler) 1 puffs INH DAILY ANDREA Stop: 05/10/21 08:59 Last Admin: 04/17/21 08:41 Dose: 1 puffs Documented by: Furosemide (Furosemide 40 Mg Tab) 40 mg PO 1700 [facility] Stop: 05/10/21 16:59 Last Admin: 04/10/21 17:40 Dose: 40 mg Documented by: Furosemide (Furosemide 80 Mg Tab) 80 mg PO QAM [facility] Stop: 05/10/21 08:59 Last Admin: 04/10/21 10:20 Dose: 80 mg Documented by: Furosemide (Furosemide 40 Mg Tab) 40 mg PO QAM [facility] Stop: 05/16/21 09:59 Last Admin: 04/17/21 09:37 Dose: 40 mg Documented by: Furosemide (Furosemide 20 Mg Tab) 20 mg PO DAILY@1700 [facility] Stop: 05/16/21 16:59 Last Admin: 04/16/21 17:27 Dose: 20 mg Documented by: Glucagon (Glucagon For Inj 1 Mg Vial) 1 mg IM UD PRN; Protocol PRN Reason: Hypoglycemia Protocol Stop: 05/10/21 03:44 Glucose (Glucose 40% Gel 15 Gm Tube) 15 - 30 gm PO UD PRN; Protocol PRN Reason: Hypoglycemia Protocol Stop: 05/10/21 03:44 Glucose (Glucose 10 Tabs/Tube) 4 - 8 tabs PO UD PRN; Protocol PRN Reason: Hypoglycemia Protocol Stop: 05/10/21 03:44 Glycerin (Glycerin Adult 12 Supp/Box Supp) 1 supp OK DAILY PRN PRN Reason: Constipation Stop: 05/13/21 11:50 Heparin Sodium (Porcine) (Heparin Sod 5,000 Unit/0.5 Ml Vial) 5,000 units SQ Q8 [facility] Stop: 05/11/21 13:59 Last Admin: 04/17/21 00:19 Dose: Not Given Documented by: Hydrocortisone (Hydrocortisone 10 Mg Tab) 20 mg PO QPM [facility] Stop: 05/16/21 20:59 Last Admin: 04/16/21 21:10 Dose: 20 mg Documented by: Hydrocortisone (Hydrocortisone 10 Mg Tab) 40 mg PO QAM [facility] Stop: 05/17/21 09:59 Last Admin: 04/17/21 10:22 Dose: 40 mg Documented by: Ertapenem 1,000 mg/ Sodium (Chloride) 60 mls @ 100 mls/hr IV Q24H [facility]; Protocol Stop: 04/20/21 03:59 Last Infusion: 04/17/21 05:07 Dose: Infused Documented by: Insulin Aspart (Insulin Aspart 100 Units/Ml 3 Ml Pen) 0 units SC ACHS [facility] Stop: 05/10/21 03:59 Last Admin: 04/17/21 12:31 Dose: 6 units Documented by: Ipratropium [place] (Ipratropium [place] Neb Soln 0.02% 2.5 Ml Vial) 0.5 mg INH Q6R PRN PRN Reason: SOB/wheezing Stop: 05/10/21 06:59 Last Admin: 04/16/21 08:18 Dose: 0.5 mg Documented by: Lactobacillus Acidoph/Casei/Rhamnos (Advanced Probiotic 1250 Mg Capsule) 2 cap PO QAM ANDREA Stop: 05/10/21 08:59 Last Admin: 04/17/21 08:41 Dose: 2 cap Documented by: Levalbuterol HCl (Levalbuterol 1.25mg/0.5ml Neb) 1.25 mg INH Q6R PRN PRN Reason: SOB/wheezing Stop: 05/10/21 06:59 Last Admin: 04/16/21 08:18 Dose: 1.25 mg Documented by: Lisinopril (Lisinopril 2.5 Mg Tab) 2.5 mg PO DAILY [facility] Stop: 05/10/21 08:59 Last Admin: 04/11/21 08:01 Dose: Not Given Documented by: Melatonin (Melatonin 3 Mg Tab) 3 mg PO HS [facility] Stop: 05/13/21 20:59 Last Admin: 04/17/21 00:18 Dose: 3 mg Documented by: Methimazole (Methimazole 5 Mg Tablet) 10 mg PO DAILY [facility] Stop: 05/10/21 08:59 Last Admin: 04/17/21 08:43 Dose: 10 mg Documented by: Miscellaneous (Nicolefirkdominique~Order Awaiting Action) 1 ea N/A QS ANDREA Stop: 05/10/21 07:59 Last Admin: 04/17/21 08:37 Dose: Not Given Documented by: Miscellaneous (Carbohydrates For Hypoglycemia ) 15 - 30 gm PO UD PRN PRN Reason: Hypoglycemia Treatment Stop: 05/10/21 03:44 Multivitamins (Multivitamin Tab) 1 tab PO QAM ANDREA Stop: 05/10/21 08:59 Last Admin: 04/17/21 08:43 Dose: 1 tab Documented by: Nitroglycerin (Nitroglycerin Sl 0.4 Mg/Tab Tab) 0.4 mg SL UD PRN PRN Reason: Chest Pain Stop: 05/10/21 02:44 Ondansetron HCl (Ondansetron Inj 2 Mg/Ml 2 Ml Vial) 4 mg IV Q6H PRN PRN Reason: Nausea Stop: 05/10/21 02:44 Last Admin: 04/14/21 17:36 Dose: 4 mg Documented by: Pantoprazole Sodium (Pantoprazole 40 Mg Tab) 40 mg PO BID ANDREA Stop: 05/10/21 08:59 Last Admin: 04/17/21 08:43 Dose: 40 mg Documented by: Polyethylene Glycol (Polyethylene (Miralax) 17 Gm Pack) 17 gm PO BID PRN PRN Reason: Constipation Stop: 05/10/21 02:44 Potassium Chloride (Potassium Chloride Crtab 20 Meq Tabcr) 20 meq PO DAILY [facility] Stop: 05/10/21 08:59 Last Admin: 04/10/21 08:17 Dose: 20 meq Documented by: Promethazine HCl (Promethazine Hcl 25 Mg Tab) 25 mg PO Q6H PRN PRN Reason: nausea and vomiting Stop: 05/10/21 02:44 Last Admin: 04/16/21 21:09 Dose: 25 mg Documented by: Spironolactone (Spironolactone 12.5 Mg Tab) 12.5 mg PO DAILY [facility] Stop: 05/10/21 08:59 Last Admin: 04/10/21 08:17 Dose: 12.5 mg Documented by: Vitamin D (Cholecalciferol 1,000 Units 25 Mcg Tab) 1,000 units PO QAM [facility] Stop: 05/10/21 08:59 Last Admin: 04/17/21 08:38 Dose: 1,000 units Documented by:
[2021-04-17] MEDS: FUROSEMIDE 20 MG TAB PO SCH (16:42)
[2021-04-17] MEDS: ATORVASTATIN 40 MG TAB PO SCH (20:25)
[2021-04-17] MEDS: BIMATOPROST 0.01% OP SOLN 2.5 ML BTL OP SCH (20:25)
[2021-04-17] MEDS: ONDANSETRON INJ 2 MG/ML 2 ML VIAL IV PRN (20:30)
[2021-04-18] MEDS: ERTAPENEM SODIUM 1,000 MG in SODIUM CHLORIDE 0.9% 50 ML IV SCH (04:42)
[2021-04-18] MEDS: HEPARIN SOD 5,000 UNIT/0.5 ML VIAL SQ SCH ×2 (05:49→13:50)
[2021-04-18] MEDS: HYDROCODONE/ACETAMOPHEN 5/325MG TAB PO PRN (07:19)
[2021-04-18] MEDS ORDERED: COSYNTROPIN 250 MCG in SYRINGE 4 ML IV SCH (08:00)
[2021-04-18] MEDS: ASPIRIN 81 MG ECTAB PO SCH (09:03)
[2021-04-18] MEDS: BRINZOLAMIDE (AZOPT) OPS 10 ML BTL OPB SCH (09:04)
[2021-04-18] MEDS: CHOLECALCIFEROL 1,000 UNITS 25 MCG TAB PO SCH (09:04)
[2021-04-18] MEDS: DICYCLOMINE HCL 20 MG TAB PO SCH (09:05)
[2021-04-18] MEDS: FERROUS SULFATE 325 MG TAB PO SCH (09:07)
[2021-04-18] MEDS: FLUTICASONE/VILANTEROL 100/25MCG 14 PUFFS/INHALER INH SCH (09:07)
[2021-04-18] MEDS: methIMAzole 5 MG TABLET PO SCH (09:08)
[2021-04-18] MEDS: FUROSEMIDE 40 MG TAB PO SCH (09:08)
[2021-04-18] MEDS: ADVANCED PROBIOTIC 1250 MG CAPSULE PO SCH (09:08)
[2021-04-18] MEDS: MULTIVITAMIN TAB PO SCH (09:09)
[2021-04-18] MEDS: PANTOprazole 40 MG TAB PO SCH (09:09)
[2021-04-18] MEDS: INSULIN ASPART 100 UNITS/ML 3 ML PEN SC SCH ×2 (09:12→12:30)
[2021-04-18] MEDS: DOCUSATE SODIUM 100 MG CAP PO SCH (09:14)
[2021-04-18 09:20] LABS: Basophils # (auto) 0.02 K/uL (0-0.2); Basophils % (auto) 0.2 %; Eosinophils # (auto) 0.56 K/uL (0-0.5); Eosinophils % (auto) 4.4 %; Hematocrit (blood only) 37.9 % (37-47); Hemoglobin 11.8 g/dL (12.0-16.0); Immature Granulocytes # (auto) 0.14 K/uL (0.00-0.02); Immature Granulocytes % (auto) 1.1 %; Lymphocytes # (auto) 4.92 K/uL (1.2-3.4); Lymphocytes % (auto) 38.6 %; Mean Corpuscular Hemoglobin 28.6 pg (25-34); Mean Corpuscular Hgb Conc 31.1 g/dL (32-36); Mean Platelet Volume 9.7 fL (7.4-10.4); Monocytes # (auto) 1.24 K/uL (0.11-0.59); Monocytes % (auto) 9.7 %; Neutrophils # (auto) 5.88 K/uL (1.4-6.5); Platelet Count 357 K/uL (130-400); RDW Coefficient of Variation 14.8 % (11.5-14.5); RDW Standard Deviation 49.7 fL (36.4-46.3); Red Blood Count 4.12 M/uL (4.2-5.4); White Blood Count 12.76 K/uL (4.8-10.8)
[2021-04-18 09:44] LABS: BUN Creatinine Ratio 21.8 (10-20); Calcium 8.9 mg/dl (8.5-10.1); Est GFR (African American) 66.3 ml/min; Est GFR (Non-African American) 57.2 ml/min; Potassium 3.5 mmol/L (3.5-5.1)
[2021-04-18] MEDS: FLUDROCORTISONE ACETATE 0.1 MG TAB PO SCH (10:58)
[2021-04-18] MEDS: HYDROCORTISONE 10 MG TAB PO SCH (11:02)
--- NOTE | 2021-04-18 13:05 | Hospitalist Progress Note ---
Date of Service April 18, 2021 Assessment & Plan (1) Chris-tachy syndrome: Initial bradycardia was resolved with IVF and additional mineralocorticoid support with fludrocortisone. Cont plan per cardiology-no immediate intervention in the setting of infection. No more bradyarrhythmia Appreciate cardiology input and recommendation Denies any cardiac symptoms Plan to have follow-up with her outpatient delinquent tax collector on discharge (2) Adrenal insufficiency: Improved hemodynamics on hydrocortisone, fludrocortisone and IVF. Stopped IVF. Discussed with endo (Dr. Voss) appropriate weaning given this clinical scenario. Recommended decadron 1.5mg now (am), followed by PO Cortef regimen tomorrow with continued wean as outpatient. Cosyntropin test was not performed as patient ate this morning. Try to contact Dr. Voss, still awaiting return call Patient is clinically much better and plan to be discharged tomorrow on oral hydrocortisone replacement doses Cosyntropin test seems to be positive for borderline adrenal insufficiency We will continue with the Cortef 40 and 20 mg and will have an appointment with outpatient endocrine in 10 days (3) Abdominal discomfort: Improved, was possibly related to underlying acute diverticulitis reportedly ongoing for 3 weeks per patient vs adrenal issues. Improved and tolerating PO. Pelvic us in am after finding of left sided oophoritis and thickened uterus on imaging.-No significant thickening of the uterine montemayor but the patient refused to have transvaginal procedure We will need to have an outpatient [facility] appointment if symptoms persist No more abdominal discomfort (4) UTI due to extended-spectrum beta lactamase (ESBL) producing Escherichia coli: Bactrim given for suspected UTI, changed on admission 04/10 to to Invanz when culture came back positive for ESBL E. coli. Continue Invanz for now pending clinical improvement. Clinically much better and will discontinue antibiotic on discharge Course is finished (5) Acute diverticulitis: Abdominal pain is improved. Cont abx for now until this is stable. Denies any abdominal pain Discontinue antibiotic as above (6) Dyspnea: She has history of COPD/asthma and has been on home oxygen, 2 L during the day and 4 L at night. She is at her baseline. Current symptoms attributed to adrenal insufficiency. Improved per her report. Continue oxygen as before (7) Hypotension: Resolved with above therapies. (8) JOSE DAVID (acute kidney injury): Creatinine elevated to 1.4 on admission likely secondary to Bactrim use, dehydration in setting of infection and ongoing diuretic use. Resolved to baseline after holding diuretics and lisinopril. Kidney function has been normalized and the blood pressure is maintained without lisinopril (9) Chronic respiratory failure with hypoxia and hypercapnia: 2/2 COPD. Appears stable, no wheezing or worsening hypoxia or SOB. Has been on home oxygen, 2 L via nasal cannula during the day and 4 L at night (10) COPD (chronic obstructive pulmonary disease): Appears stable without evidence of wheezing, sputum changes or coughing. There is some dyspnea however she appears to be improved. bronchodilators PRN (11) Chronic HFrEF (heart failure with reduced ejection fraction): Known h/o NICM-recent med optimization after recent hospitalization one month ago. Continue daily weights, low-sodium diet, strict ins and outs. Has been back on her oral diuretics (12) Chronic atrial fibrillation: Controlled with Coreg and digoxin. Holding Coreg at this time secondary to hypotension and bradycardia. Continue digoxin therapy-low level checked 04/13. Not on anticoagulation. Followed by [facility] cardiology-in the hospital. Advised to have appointment with her delinquent tax collector in [place] if she prefers (13) JORDAN (obstructive sleep apnea): Does not use any CPAP and/or BiPAP (14) Diabetes mellitus, type 2: controlled on SSI inpatient. Recent A1C is 7.1. Cont correction factor insulin with carb coverage for now. Added glargine and tightened scale with added steroids in anticipation of hyperglycemia. We will continue with her home doses of diabetic medications (15) DVT prophylaxis: Heparin Full Code Dispo--cont PCU monitoring. Home when medically cleared for discharge. Discharged home this afternoon Admission and Anticipated Discharge Date Admission Date: April 10, 2021 Subjective 04/10/2021 The patient was seen and examined in medical telemetry unit She complains to have some epigastric discomfort with nausea but no vomiting She has been complaining of more shortness of breath with minimal exertion without any wheezing Has had problem with voiding with dysuria and frequency No fever and no chills 04/17/2021 The patient was seen and examined in telemetry unit I saw her on following admission to the hospital and seeing her today She has been feeling a lot better Complains to have minimal nausea but no vomiting and has been feeling better generally 04/18/2021 The patient was seen and examined in telemetry unit She has been feeling a lot better today and warmly complains to have some weakness Denies any abdominal pain, nausea and or vomiting No chest pain and/or palpitation Review of Systems Review of Systems: All systems reviewed and are unremarkable except as noted below Respiratory: no cough and no dyspnea on exertion Gastrointestinal: + nausea; no abdominal pain and no vomiting Physical Exam Physical Exam: Lying in bed without any distress Constitutional: well developed, well nourished and + obese; not ill appearing Eyes: PERRL, conjunctivae normal, anicteric sclerae ENMT: external ear and nose normal, oropharynx normal Neck: trachea midline, no thyromegaly Respiratory: no respiratory distress (Minimal distress at rest) Auscultation: + diminished lung sounds and + wheezes (Very minimal wheezing); no crackles Cardiovascular: Rate/Rhythm: regular rate and regular rhythm Heart Sounds: no murmur Extremities: + edema (Trace edema bilaterally) Gastrointestinal (Abdomen): Inspection/Auscultation: abdomen not distended Percussion/Palpation: abdomen soft; abdomen nontender Musculoskeletal: No acute arthritis in any joint Neurologic: Alert, awake and oriented x3. Generally weak but no focal sensory and motor deficit appreciated Psychiatric: A+Ox3, euthymic affect Lymphatic: no cervical or axillary lymphadenopathy Results & Data Results & Data ([facility]) Vital Signs (Past 12 Hours) Vital Signs Temp Pulse Pulse Resp BP Pulse Ox 04/18/21 11:49 36.6 C 73 18 120/74 98 04/18/21 07:45 36.7 C 60 20 119/71 98 04/18/21 03:49 36.7 C 72 18 130/67 96 04/18/21 02:23 60 Laboratory Results Short CBC 04/18/21 Range/Units 09:01 WBC 12.76 H (4.8-10.8) K/uL Hgb 11.8 L (12.0-16.0) g/dL Hct 37.9 (37-47) % Plt Count 357 (130-400) K/uL BMP 04/18/21 09:01 Sodium 142 Potassium 3.5 Chloride 102 Carbon Dioxide 38 H BUN 20 H Creatinine 0.93 Glucose 92 Calcium 8.9 Medications Administered Current Inpatient Medications Acetaminophen (Acetaminophen 325 Mg Tab) 650 mg PO Q4H PRN PRN Reason: Pain or Fever Stop: 05/10/21 02:44 Hydrocodone Bitart/Acetaminophen (Hydrocodone/Acetamophen 5/325mg Tab) 1 tab PO Q6H PRN PRN Reason: Pain Stop: 04/24/21 02:44 Last Admin: 04/18/21 07:19 Dose: 1 tab Documented by: Albuterol (Albuterol Hfa 8 Gm Inhaler) 2 puffs INH QID PRN PRN Reason: Shortness Of Breath Stop: 05/10/21 02:44 Last Admin: 04/14/21 11:52 Dose: 2 puffs Documented by: Aspirin (Aspirin 81 Mg Ectab) 81 mg PO DAILY ANDREA Stop: 05/10/21 08:59 Last Admin: 04/18/21 09:03 Dose: 81 mg Documented by: Atorvastatin Calcium (Atorvastatin 40 Mg Tab) 40 mg PO HS ANDREA Stop: 05/10/21 20:59 Last Admin: 04/17/21 20:25 Dose: 40 mg Documented by: Bimatoprost (Bimatoprost 0.01% Op Soln 2.5 Ml Btl) 1 drops OP HS ANDREA Stop: 05/10/21 20:59 Last Admin: 04/17/21 20:25 Dose: 1 drops Documented by: Brinzolamide (Brinzolamide (Azopt) Ops 10 Ml Btl) 1 drops OPB BID ANDREA Stop: 05/10/21 08:59 Last Admin: 04/18/21 09:04 Dose: 1 drops Documented by: Carvedilol (Carvedilol 6.25 Mg Tab) 6.25 mg PO BID ANDREA Stop: 05/10/21 08:59 Last Admin: 04/11/21 07:56 Dose: Not Given Documented by: Dextrose (Dextrose 50% 50 Ml Syringe) 25 - 50 ml IV UD PRN; Protocol PRN Reason: Hypoglycemia Protocol Stop: 05/10/21 03:44 Dicyclomine HCl (Dicyclomine Hcl 20 Mg Tab) 20 mg PO BID ANDREA Stop: 05/10/21 08:59 Last Admin: 04/18/21 09:05 Dose: 20 mg Documented by: Docusate Sodium (Docusate Sodium 100 Mg Cap) 100 mg PO QAM ANDREA Stop: 05/10/21 08:59 Last Admin: 04/18/21 09:14 Dose: 100 mg Documented by: Ertapenem (Ertapenem Consult Active) 1 ea N/A UD PRN PRN Reason: Consult Stop: 05/10/21 03:22 Ferrous Sulfate (Ferrous Sulfate 325 Mg Tab) 325 mg PO Q[facility] [place] Stop: 05/10/21 08:59 Last Admin: 04/18/21 09:07 Dose: 325 mg Documented by: Fludrocortisone Acetate (Fludrocortisone Acetate 0.1 Mg Tab) 0.1 mg PO QAOK [facility] [place] Stop: 05/14/21 12:14 Last Admin: 04/18/21 10:58 Dose: 0.1 mg Documented by: Fluticasone/Vilanterol (Fluticasone/Vilanterol 100/25mcg 14 Puffs/Inhaler) 1 puffs INH DAILY [facility] Stop: 05/10/21 08:59 Last Admin: 04/18/21 09:07 Dose: 1 puffs Documented by: Furosemide (Furosemide 40 Mg Tab) 40 mg PO 1700 [facility] Stop: 05/10/21 16:59 Last Admin: 04/10/21 17:40 Dose: 40 mg Documented by: Furosemide (Furosemide 80 Mg Tab) 80 mg PO QAOK [facility] [place] Stop: 05/10/21 08:59 Last Admin: 04/10/21 10:20 Dose: 80 mg Documented by: Furosemide (Furosemide 40 Mg Tab) 40 mg PO [facility] Stop: 05/16/21 09:59 Last Admin: 04/18/21 09:08 Dose: 40 mg Documented by: Furosemide (Furosemide 20 Mg Tab) 20 mg PO DAILY@1700 [facility] Stop: 05/16/21 16:59 Last Admin: 04/17/21 16:42 Dose: 20 mg Documented by: Glucagon (Glucagon For Inj 1 Mg Vial) 1 mg IM UD PRN; Protocol PRN Reason: Hypoglycemia Protocol Stop: 05/10/21 03:44 Glucose (Glucose 40% Gel 15 Gm Tube) 15 - 30 gm PO UD PRN; Protocol PRN Reason: Hypoglycemia Protocol Stop: 05/10/21 03:44 Glucose (Glucose 10 Tabs/Tube) 4 - 8 tabs PO UD PRN; Protocol PRN Reason: Hypoglycemia Protocol Stop: 05/10/21 03:44 Glycerin (Glycerin Adult 12 Supp/Box Supp) 1 supp HI DAILY PRN PRN Reason: Constipation Stop: 05/13/21 11:50 Heparin Sodium (Porcine) (Heparin Sod 5,000 Unit/0.5 Ml Vial) 5,000 units SQ Q8 [facility] Stop: 05/11/21 13:59 Last Admin: 04/18/21 05:49 Dose: Not Given Documented by: Hydrocortisone (Hydrocortisone 10 Mg Tab) 20 mg PO QPM [facility] Stop: 05/16/21 20:59 Last Admin: 04/16/21 21:10 Dose: 20 mg Documented by: Hydrocortisone (Hydrocortisone 10 Mg Tab) 40 mg PO QAM [facility] Stop: 05/17/21 09:59 Last Admin: 04/18/21 11:02 Dose: 40 mg Documented by: Ertapenem 1,000 mg/ Sodium (Chloride) 60 mls @ 100 mls/hr IV Q24H [facility]; Protocol Stop: 04/20/21 03:59 Last Infusion: 04/18/21 05:49 Dose: Infused Documented by: Insulin Aspart (Insulin Aspart 100 Units/Ml 3 Ml Pen) 0 units SC ACHS [facility] Stop: 05/10/21 03:59 Last Admin: 04/18/21 12:30 Dose: 5 units Documented by: Ipratropium Bandy (Ipratropium Bandy Neb Soln 0.02% 2.5 Ml Vial) 0.5 mg INH Q6R PRN PRN Reason: SOB/wheezing Stop: 05/10/21 06:59 Last Admin: 04/16/21 08:18 Dose: 0.5 mg Documented by: Lactobacillus Acidoph/Casei/Rhamnos (Advanced Probiotic 1250 Mg Capsule) 2 cap PO QAM [facility] Stop: 05/10/21 08:59 Last Admin: 04/18/21 09:08 Dose: 2 cap Documented by: Levalbuterol HCl (Levalbuterol 1.25mg/0.5ml Neb) 1.25 mg INH Q6R PRN PRN Reason: SOB/wheezing Stop: 05/10/21 06:59 Last Admin: 04/16/21 08:18 Dose: 1.25 mg Documented by: Lisinopril (Lisinopril 2.5 Mg Tab) 2.5 mg PO DAILY [facility] Stop: 05/10/21 08:59 Last Admin: 04/11/21 08:01 Dose: Not Given Documented by: Melatonin (Melatonin 3 Mg Tab) 3 mg PO HS [facility] Stop: 05/13/21 20:59 Last Admin: 04/17/21 00:18 Dose: 3 mg Documented by: Methimazole (Methimazole 5 Mg Tablet) 10 mg PO DAILY [facility] Stop: 05/10/21 08:59 Last Admin: 04/18/21 09:08 Dose: 10 mg Documented by: Miscellaneous (Zafirkdominique~Order Awaiting Action) 1 ea N/A QS [facility] Stop: 05/10/21 07:59 Last Admin: 04/18/21 09:03 Dose: Not Given Documented by: Miscellaneous (Carbohydrates For Hypoglycemia ) 15 - 30 gm PO UD PRN PRN Reason: Hypoglycemia Treatment Stop: 05/10/21 03:44 Multivitamins (Multivitamin Tab) 1 tab PO QAM [facility] Stop: 05/10/21 08:59 Last Admin: 04/18/21 09:09 Dose: 1 tab Documented by: Nitroglycerin (Nitroglycerin Sl 0.4 Mg/Tab Tab) 0.4 mg SL UD PRN PRN Reason: Chest Pain Stop: 05/10/21 02:44 Ondansetron HCl (Ondansetron Inj 2 Mg/Ml 2 Ml Vial) 4 mg IV Q6H PRN PRN Reason: Nausea Stop: 05/10/21 02:44 Last Admin: 04/17/21 20:30 Dose: 4 mg Documented by: Pantoprazole Sodium (Pantoprazole 40 Mg Tab) 40 mg PO BID [facility] Stop: 05/10/21 08:59 Last Admin: 04/18/21 09:09 Dose: 40 mg Documented by: Polyethylene Glycol (Polyethylene (Miralax) 17 Gm Pack) 17 gm PO BID PRN PRN Reason: Constipation Stop: 05/10/21 02:44 Potassium Chloride (Potassium Chloride Crtab 20 Meq Tabcr) 20 meq PO DAILY [facility] Stop: 05/10/21 08:59 Last Admin: 04/10/21 08:17 Dose: 20 meq Documented by: Promethazine HCl (Promethazine Hcl 25 Mg Tab) 25 mg PO Q6H PRN PRN Reason: nausea and vomiting Stop: 05/10/21 02:44 Last Admin: 04/16/21 21:09 Dose: 25 mg Documented by: Spironolactone (Spironolactone 12.5 Mg Tab) 12.5 mg PO DAILY [facility] Stop: 05/10/21 08:59 Last Admin: 04/10/21 08:17 Dose: 12.5 mg Documented by: Vitamin D (Cholecalciferol 1,000 Units 25 Mcg Tab) 1,000 units PO [facility] Stop: 05/10/21 08:59 Last Admin: 04/18/21 09:04 Dose: 1,000 units Documented by:
--- NOTE | 2021-04-18 15:09 | Cardiology Progress Note ---
Date of Service April 18, 2021 Assessment & Plan (1) Hypotension: (2) Adrenal insufficiency: (3) Chronic atrial fibrillation: (4) Chronic HFrEF (heart failure with reduced ejection fraction): (5) JOSE DAVID (acute kidney injury): (6) UTI due to extended-spectrum beta lactamase (ESBL) producing Escherichia coli: (7) Hyponatremia: (8) Subclinical hyperthyroidism: (9) NICM (nonischemic cardiomyopathy): (10) JORDAN (obstructive sleep apnea): (11) Chronic respiratory failure with hypoxia and hypercapnia: (12) Asthma: (13) COPD (chronic obstructive pulmonary disease): (14) Diabetes mellitus, type 2: Vital signs have stabilized with medication adjustments. No further bradycardia arrhythmias or pauses overnight. 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 Obviously, ongoing infection would preclude permanent pacemaker placement. Currently she is clinically stable but should she deteriorate would recommend initiation of dopamine, consideration for temporary pacer may also be given. Does have watchman device in place and now on anticoagulation. Historically has not followed with our cardiology practice and was first seen after admission here in February, previously followed with Dr. Gutierrez pinto and electrophysiology in [place]. No further cardiac test intervention necessary Admission and Anticipated Discharge Date Admission Date: April 10, 2021 Physical Exam Physical Exam: General: Awake, alert and oriented x 3. No acute distress. HEENT: Normocephalic, atraumatic. Pupils equal, round and reactive to light and accommodation. Extraocular muscles are intact. Anicteric sclera. Moist mucous membranes. Neck: No JVD. No bruit. Cardiovascular: irregularly irregular, unable to appreciate murmur, rub or gallop. Pulmonary: Clear to auscultation bilaterally. No rales, rhonchi, or wheezing. Abdomen: Bowel sounds x 4, soft. No rebound, guarding or tenderness. No organomegaly. Extremities: No clubbing, cyanosis or edema. +2 pedal pulses bilaterally. Skin: Warm and dry. Results & Data ([facility]) Vital Signs (Past 12 Hours) Vital Signs Temp Pulse Resp BP BP Pulse Ox 04/18/21 14:53 97 04/18/21 14:43 36.6 C 73 18 114/62 120/74 98 04/18/21 11:49 36.6 C 73 18 120/74 98 04/18/21 07:45 36.7 C 60 20 119/71 98 04/18/21 03:49 36.7 C 72 18 130/67 96
--- NOTE | 2021-04-18 17:12 | Discharge Summary ---
Date of Service April 18, 2021 Admission HPI Per Admitting Provider DICTATED BY: Roberth Liao MD DATE OF ADMISSION: 04/10/2021. CHIEF COMPLAINT: Shortness of breath, abdominal discomfort. HISTORY OF PRESENT ILLNESS: An 80-year-old female with a past medical history significant for type 2 diabetes, chronic respiratory failure, on oxygen 2 liters in the morning and 4 liters at nighttime, hyperlipidemia, history of hypercalcemia, history of asthma, COPD, allergic rhinitis, nocturnal hypoxia, sleep apnea, but could not tolerate CPAP, but now on nocturnal oxygen, chronic systolic CHF, last echo with EF of 40% to 45%, pulmonary hypertension, hypertension, paroxysmal atrial fibrillation, irritable bowel syndrome, history of ischemic colitis, morbid obesity, GERD, generalized osteoarthritis, history of elevated plasma metanephrines, generalized anxiety disorder. The patient lives alone, ambulates without any support. Daughter lives close by. Comes because of shortness of breath. The patient was recently diagnosed with UTI and started on Bactrim. Still has abdominal discomfort. The burning micturition is getting better. Denies any fever or chills. No cough, no chest pain. She is getting more short of breath, though is not requiring more than her usual o xygen. No headache, no blurred visions, no earache, no runny nose, no sore throat. Appetite is not great for the last few days. No swelling in the legs. No diarrhea or constipation. Stools are always black because of the iron tablets. No blood in the stools. No hematuria. Currently resting comfortably and hemodynamically stable. In the ER, she received steroids and nebs. She complains of also some nausea. Admission Exam Per Admitting Provider GENERAL: The patient is obese, not in acute distress. VITAL SIGNS: Temperature 36.6, pulse 78, respiratory rate 21, blood pressure 114/79, oxygen 96% on 2 liters. HEENT: Pupils equal, round and reactive. Oral mucosa moist. NECK: No JVD, no neck masses. CARDIOVASCULAR: S1 and S2 heard. Regular rate and rhythm. No murmur, no gallop. RESPIRATORY SYSTEM: Normal AP diameter. No accessory muscle use. No wheezing, no crackles. ABDOMEN: Soft, bowel sounds present, nontender, no distention. CENTRAL NERVOUS SYSTEM: Cranial nerves II-XII grossly intact, nonfocal. EXTREMITIES: No edema, no erythema. Principal Diagnosis Possible tachybradycardia syndrome, adrenal insufficiency, UTI with ESBL, mild acute diverticulitis, chronic respiratory failure on home O2, COPD, atrial fibrillation not on any anticoagulation, JORDAN Discharge Exam Constitutional well developed, well nourished and + obese; not ill appearing Eyes PERRL, conjunctivae normal, anicteric sclerae ENMT external ear and nose normal, oropharynx normal Neck trachea midline, no thyromegaly Respiratory no respiratory distress (Minimal distress at rest) Auscultation: + diminished lung sounds and + wheezes (Very minimal wheezing); no crackles Cardiovascular Rate/Rhythm: regular rate and regular rhythm Heart Sounds: no murmur Extremities: + edema (Trace edema bilaterally) Gastrointestinal (Abdomen) Inspection/Auscultation: abdomen not distended Percussion/Palpation: abdomen soft; abdomen nontender Psychiatric A+Ox3, euthymic affect Lymphatic no cervical or axillary lymphadenopathy Discharge Data Allergies Allergy/AdvReac Type Severity Reaction Status Date / Time salmon oil Allergy Severe HIVES-REDDENED Verified 04/09/21 23:01 ALL OVER Iodinated Contrast Media Allergy Intermediate HIVES-GI Verified 04/09/21 23:01 SYMPTOMS valsartan Allergy Intermediate FAST HEART Verified 04/09/21 23:01 BEAT bupropion AdvReac Mild GI SYMPTOMS Verified 04/09/21 23:01 enalapril AdvReac Mild GI SYMPTOMS Verified 04/09/21 23:01 escitalopram AdvReac Mild GI SYMPTOMS Verified 04/09/21 23:01 metoprolol AdvReac Mild LOWERS Verified 04/09/21 23:01 PULSE RATE verapamil AdvReac Mild GI UPSET, Verified 04/09/21 23:01 fast heart rate Consultations 04/09/21 22:08 ED Decision to Admit Stat 04/11/21 12:45 Consult Infectious Diseases Routine 04/14/21 10:23 Consult Cardiology Routine 04/14/21 19:15 Consult Anesthesiologist And Critical Care Routine Ordered Studies 04/10/21 15:29 US - OR guided needle placemen Routine 04/14/21 12:12 US renal/blad retro comp Urgent 04/14/21 12:37 CT abd pelvis IV con only Urgent 04/17/21 09:00 US pelvic complete Routine Hospital Course (1) Chris-tachy syndrome: Initial bradycardia was resolved with IVF and additional mineralocorticoid support with fludrocortisone. Cont plan per cardiology-no immediate intervention in the setting of infection. No more bradyarrhythmia Appreciate cardiology input and recommendation Denies any cardiac symptoms Plan to have follow-up with her outpatient clean energy policy analyst on discharge (2) Adrenal insufficiency: Improved hemodynamics on hydrocortisone, fludrocortisone and IVF. Stopped IVF. Discussed with endo (Dr. Voss) appropriate weaning given this clinical scenario. Recommended decadron 1.5mg now (am), followed by PO Cortef regimen tomorrow with continued wean as outpatient. Cosyntropin test was not performed as patient ate this morning. Try to contact Dr. Voss, still awaiting return call Patient is clinically much better and plan to be discharged tomorrow on oral hydrocortisone replacement doses Cosyntropin test seems to be positive for borderline adrenal insufficiency We will continue with the Cortef 40 and 20 mg and will have an appointment with outpatient endocrine in 10 days (3) Abdominal discomfort: Improved, was possibly related to underlying acute diverticulitis reportedly ongoing for 3 weeks per patient vs adrenal issues. Improved and tolerating PO. Pelvic us in am after finding of left sided oophoritis and thickened uterus on imaging.-No significant thickening of the uterine montemayor but the patient refused to have transvaginal procedure We will need to have an outpatient PACKAGING MATERIALS INSPECTOR appointment if symptoms persist No more abdominal discomfort (4) UTI due to extended-spectrum beta lactamase (ESBL) producing Escherichia coli: Bactrim given for suspected UTI, changed on admission 04/10 to to Invanz when culture came back positive for ESBL E. coli. Continue Invanz for now pending clinical improvement. Clinically much better and will discontinue antibiotic on discharge Course is finished (5) Acute diverticulitis: Abdominal pain is improved. Cont abx for now until this is stable. Denies any abdominal pain Discontinue antibiotic as above (6) Dyspnea: She has history of COPD/asthma and has been on home oxygen, 2 L during the day and 4 L at night. She is at her baseline. Current symptoms attributed to adrenal insufficiency. Improved per her report. Continue oxygen as before (7) Hypotension: Resolved with above therapies. (8) JOSE DAVID (acute kidney injury): Creatinine elevated to 1.4 on admission likely secondary to Bactrim use, dehydration in setting of infection and ongoing diuretic use. Resolved to baseline after holding diuretics and lisinopril. Kidney function has been normalized and the blood pressure is maintained without lisinopril (9) Chronic respiratory failure with hypoxia and hypercapnia: 2/2 COPD. Appears stable, no wheezing or worsening hypoxia or SOB. Has been on home oxygen, 2 L via nasal cannula during the day and 4 L at night (10) COPD (chronic obstructive pulmonary disease): Appears stable without evidence of wheezing, sputum changes or coughing. There is some dyspnea however she appears to be improved. bronchodilators PRN (11) Chronic HFrEF (heart failure with reduced ejection fraction): Known h/o NICM-recent med optimization after recent hospitalization one month ago. Continue daily weights, low-sodium diet, strict ins and outs. Has been back on her oral diuretics (12) Chronic atrial fibrillation: Controlled with Coreg and digoxin. Holding Coreg at this time secondary to hypotension and bradycardia. Continue digoxin therapy-low level checked 04/13. Not on anticoagulation. Followed by [facility] cardiology-in the hospital. Advised to have appointment with her clean energy policy analyst in [place] if she prefers (13) JORDAN (obstructive sleep apnea): Does not use any CPAP and/or BiPAP (14) Diabetes mellitus, type 2: controlled on SSI inpatient. Recent A1C is 7.1. Cont correction factor insulin with carb coverage for now. Added glargine and tightened scale with added steroids in anticipation of hyperglycemia. We will continue with her home doses of diabetic medications (15) DVT prophylaxis: Heparin Full Code Dispo--cont PCU monitoring. Home when medically cleared for discharge. Discharged home this afternoon Total Time Total Time Spent Total Time Spent (In Minutes): 40 minutes Total Time Includes: Examination of the Patient, Discharge Planning, Medication Reconciliation and Communication With Other Providers Discharge Plan Discharge Items Patient Disposition: Home - Home Health Services Reason For Visit: SHORTNESS OF BREATH Discharge Diagnosis: Possible tachybradycardia syndrome, adrenal insufficiency, UTI with ESBL, mild acute diverticulitis, chronic respiratory failure on home O2, COPD, atrial fibrillation not on any anticoagulation, JORDAN Condition on Discharge: Fair Activity: Resume your previous activity Non-emergency contact: Primary Care Provider Call non-emergency contact if: you have any medication questions and your symptoms worsen Follow-up/Referrals: Stew Voss MD [Physician] - 06/06/21 10:30 am ([facility] [address] [address] PLEASE NOTE THAT THE OFFICE IS WORKING ON A CLOSER APPOINTMENT, THEY WILL CONTACT YOU TO GIVE YOU AN UPDATED APPOINTMENT. IF YOU DO NOT HEAR FROM THEM, PLEASE CALL . ) Marcela Pinto MD [Primary Care Provider] - (Date & Time 04/24/2021 12:00 PM Provider Marcela Pinto MD Department General Internal Medicine [facility] ) Diet: Carb Consistent or DM2, Heart Healthy and Low Sodium (2gm) Fluids: 1800ml (7 cups) Addtl Attending Provider Instructions: Please take extreme precautions to avoid fall Continue to take your oxygen as before Your furosemide dose this have been decreased Digoxin and carvedilol have been discontinued Your sulfa antibiotic has been discontinued too Please try to make an appointment with your clean energy policy analyst in [place] within 2 to 4 weeks if you prefer otherwise Make an appoint with [facility] clean energy policy analyst during your visit to the primary care physician Pending Studies at Discharge: No Stand-Alone Forms: My [facility] [employer], Smoking Cessation Medications and DC Order Prescriptions: New furosemide 40 mg Tablet 40 mg PO QAM 30 Days Qty: 30 RF: 0 furosemide 20 mg Tablet 20 mg PO DAILY@1700 30 Days Qty: 30 RF: 0 fludrocortisone 0.1 mg Tablet 0.1 mg PO QAM 30 Days Qty: 30 RF: 0 hydrocortisone [Cortef] 20 mg tablet 20 mg PO QPM Qty: 30 RF: 0 hydrocortisone [Cortef] 20 mg tablet 40 mg PO QAM Qty: 60 RF: 0 Continued albuterol sulfate [Ventolin HFA] 90 mcg/actuation HFA aerosol inhaler 2 puff INHALATION QID PRN (Reason: Shortness Of Breath) Qty: 6.7 RF: 6 methimazole 10 mg tablet 10 mg PO DAILY RF: 0 aspirin [Aspirin Low Dose] 81 mg tablet,delayed release (DR/EC) 81 mg PO DAILY RF: 0 lisinopril 2.5 mg tablet 2.5 mg PO DAILY RF: 0 multivitamin Tablet 1 tab PO QAM RF: 0 promethazine 25 mg Tablet 25 mg PO Q6H PRN (Reason: nausea and vomiting) Qty: 60 RF: 0 dicyclomine 20 mg Tablet 20 mg PO BID 30 Days Qty: 60 RF: 0 atorvastatin 40 mg Tablet 40 mg PO HS RF: 0 docusate sodium 100 mg Capsule 100 mg PO QAM RF: 0 omeprazole 20 mg Capsule,Delayed Release(Dr/Ec) 20 mg PO BID RF: 0 cholecalciferol (vitamin D3) [Vitamin D3] 1,000 unit Capsule 1,000 unit PO QAM RF: 0 ferrous sulfate [iron] 325 mg (65 mg iron) tablet 325 mg PO QAM RF: 0 glimepiride 4 mg tablet 2 mg PO QAM RF: 0 zafirlukast 20 mg tablet 20 mg PO QAM RF: 0 albuterol sulfate 2.5 mg /3 mL (0.083 %) Solution For Nebulization 2.5 mg INHALATION BID PRN (Reason: .WORSENING ASTHMA) RF: 0 brinzolamide [Azopt] 1 % Drops,Suspension 1 drp OPB BID RF: 0 Lumigan 0.01 % drops 1 drp OPB HS RF: 0 polyethylene glycol 3350 [Miralax] 17 gram/dose Powder 17 g PO BID PRN (Reason: Constipation) RF: 0 hydrocodone-acetaminophen 5-325 mg Tablet 1 tab PO Q6H PRN (Reason: Pain) RF: 0 Probiotic 3 billion cell Capsule 3,000 mmu cells PO QAM RF: 0 spironolactone 25 mg Tablet 12.5 mg PO DAILY Qty: 30 RF: 2 Advair HFA 230-21 mcg/actuation HFA aerosol inhaler 2 puff INHALATION BID RF: 0 potassium chloride [Klor-Con M20] 20 mEq tablet,ER particles/crystals 20 meq PO DAILY RF: 0 Combivent Respimat 20-100 mcg/actuation mist 1 puff INHALATION QID RF: 0 Discontinued carvedilol 6.25 mg Tablet 6.25 mg PO BID Qty: 60 RF: 2 furosemide 80 mg Tablet 80 mg PO QAM Qty: 30 RF: 0 sulfamethoxazole-trimethoprim 800-160 mg tablet 1 tab PO DAILY RF: 0 digoxin [Digitek] 125 mcg (0.125 mg) tablet 0.125 mg PO 4XWK RF: 0 furosemide 40 mg tablet 40 mg PO QPM RF: 0 Discharge Orders: Discharge Order (Routine); Ordered 04/18/21 Ordered By: Katerin Car/Other Patient Handouts: Managing Type 2 Diabetes, A1C Admission Data Admit Date/Time: 04/10/21 01:10 Attending Provider: Katerin Unger Admit Provider: Roberth Liao Primary Care Provider: Marcela Pinto Other Providers: Roberth Liao ; Shimon Garcia ; Ingris Reyes ; Chavez Jarrell I. ; Dhruv Sen II ; Mamta Farley ; Jerry Wilson ; Moris Mcfarland ; Darren Cooper ; Ruby Begum Other Interventions: Discharge Summary Assessment (RN) Last Done: 04/18/21 14:43
== END 2021-04-18 16:25 | disposition home health service (06) | DRG 191 ==
LOC: ED 20:24 → 2N 04-10 01:10 → SUATTDRO 04-10 01:10 → 2N 04-10 02:13 → 2S 04-14 12:18
DX: E03.9 Hypothyroidism, unspecified; Z91.041 Radiographic dye allergy status; I95.9 Hypotension, unspecified; E05.90 Thyrotoxicosis, unspecified without thyrotoxic crisis or storm; B96.29 Other Escherichia coli [E. coli] as the cause of diseases classified elsewhere; I11.0 Hypertensive heart disease with heart failure; K57.32 Diverticulitis of large intestine without perforation or abscess without bleeding; H40.9 Unspecified glaucoma; E78.5 Hyperlipidemia, unspecified; I48.19 Other persistent atrial fibrillation; E87.1 Hypo-osmolality and hyponatremia; Z83.3 Family history of diabetes mellitus; T37.0X5A Adverse effect of sulfonamides, initial encounter; I42.8 Other cardiomyopathies; E27.40 Unspecified adrenocortical insufficiency; G47.33 Obstructive sleep apnea (adult) (pediatric); E86.0 Dehydration; Y92.019 Unspecified place in single-family (private) house as the place of occurrence of the external cause; Z68.41 Body mass index [BMI] 40.0-44.9, adult; I48.0 Paroxysmal atrial fibrillation; N39.0 Urinary tract infection, site not specified; I49.5 Sick sinus syndrome; J96.11 Chronic respiratory failure with hypoxia; N17.9 Acute kidney failure, unspecified; J96.12 Chronic respiratory failure with hypercapnia; E66.01 Morbid (severe) obesity due to excess calories; J44.1 Chronic obstructive pulmonary disease with (acute) exacerbation; E11.43 Type 2 diabetes mellitus with diabetic autonomic (poly)neuropathy; Z99.81 Dependence on supplemental oxygen; I50.22 Chronic systolic (congestive) heart failure

== ENCOUNTER 2021-05-05 13:07 | Inpatient (IN) ==
[2021-05-05] MEDS ORDERED: ACETAMINOPHEN 1,000 MG/100 ML VIAL IV STA (14:12)
[2021-05-05] MEDS ORDERED: ONDANSETRON INJ 2 MG/ML 2 ML VIAL IV STA (14:12)
[2021-05-05] MEDS ORDERED: SODIUM CHLORIDE 0.9% 1000ML 1,000 ML IV SCH ×2 (14:15→20:08)
--- NOTE | 2021-05-05 14:15 | Emergency Department Note ---
History of Present Illness General Chief complaint: Abdominal Pain Stated complaint: Abdominal Pain for a week Time Seen by Provider: 05/05/21 14:01 Source: patient Mode of arrival: ambulatory Limitations: no limitations History of Present Illness Provider complaint: abdominal pain Onset (ago): week(s) 1 Radiation: non-radiation Severity: moderate Pain Consistency: + constant and + colicky Maximum Pain Intensity: 7 Current Pain Intensity: 7 Quality: + constant Relieved By: + none Exacerbated By: + none Associated symptoms: + nausea/vomiting; no chest pain, no fever/chills, no loss of appetite or no shortness of breath Treatments prior to arrival: other This is an 80-year-old female who presents emerge department complaining of 1 week of left lower abdominal pain. Patient states she was recently hospitalized due to a significant urinary tract infection. She states that had since cleared up and she was discharged after 10 days of IV antibiotics. She states a little over week ago she began developing the pain again. She states her family asked her to contact her PCP but she did not as she was fearful she would need to come to the hospital again. Patient states she has had intermittent nausea. She has been using her routine medications at home which do include a pain medication due to other chronic pain. She states it does help some. She denies any diarrhea, black or bloody stools. States her nausea has been intermittent but she has not had any vomiting. She denies fevers or chills. Patient states she has had similar pain in the past related to diverticulitis. No prior surgery required. Pt seen during a time of high acuity and national emergency pandemic while wearing PPE. Home Medications Medication Instructions Recorded Confirmed Type atorvastatin 40 mg tablet 40 mg PO HS 06/23/19 05/05/21 History cholecalciferol (vitamin D3) 25 1,000 unit PO QAM 06/23/19 05/05/21 History mcg (1,000 unit) capsule (Vitamin D3) docusate sodium 100 mg capsule 100 mg PO QAM 06/23/19 05/05/21 History omeprazole 20 mg capsule,delayed 20 mg PO BID 06/23/19 05/05/21 History release albuterol sulfate 2.5 mg INHALATION BID PRN 09/25/19 05/05/21 History bimatoprost 0.01 % eye drops 1 drp OPB HS 09/25/19 05/05/21 History (Lumigan) brinzolamide 1 % eye 1 drp OPB BID 09/25/19 05/05/21 History drops,suspension (Azopt) polyethylene glycol 3350 17 17 g PO BID PRN 09/25/19 05/05/21 History gram/dose oral powder (Miralax) ferrous sulfate 325 mg (65 mg 325 mg PO QAM tab 02/23/20 05/05/21 History iron) tablet (iron) glimepiride 4 mg tablet 2 mg PO QAM tab 02/23/20 05/05/21 History multivitamin 1 tab PO QAM 06/02/20 05/05/21 History dicyclomine 20 mg tablet 20 mg PO BID 30 Days #60 tab 06/16/20 05/05/21 Rx promethazine 25 mg tablet 25 mg PO Q6H PRN #60 tab 06/16/20 05/05/21 Rx hydrocodone 5 mg-acetaminophen 325 1 tab PO Q6H PRN 07/28/20 05/05/21 History mg tablet lactobacillus combination no.4 3 3,000 mmu cells PO QAM 07/28/20 05/05/21 History billion cell capsule (Probiotic) zafirlukast 20 mg tablet 20 mg PO QAM 09/11/20 05/05/21 History albuterol sulfate 90 mcg/actuation 2 puff INHALATION QID PRN #6.7 g 10/30/20 05/05/21 Rx aerosol inhaler (Ventolin HFA) aspirin 81 mg tablet,delayed 81 mg PO DAILY 02/05/21 05/05/21 History release (Aspirin Low Dose) lisinopril 2.5 mg tablet 2.5 mg PO DAILY 02/05/21 05/05/21 History spironolactone 25 mg tablet 12.5 mg PO DAILY #30 tab 03/02/21 05/05/21 Rx methimazole 10 mg tablet 10 mg PO DAILY 03/07/21 05/05/21 History fluticasone propionate 230 2 puff INHALATION BID 04/09/21 05/05/21 History mcg-salmeterol 21 mcg/actuation HFA inhaler (Advair HFA) ipratropium 20 mcg-albuterol 100 1 puff INHALATION QID 04/09/21 05/05/21 History mcg/actuation mist for inhalation (Combivent Respimat) potassium chloride 20 mEq 20 meq PO DAILY 04/09/21 05/05/21 History tablet,extended release(part/cryst) (Klor-Con M) fludrocortisone 0.1 mg tablet 0.1 mg PO QAM 30 Days #30 tab 04/18/21 05/05/21 Rx furosemide 20 mg tablet 20 mg PO DAILY@1700 30 Days #30 tab 04/18/21 05/05/21 Rx furosemide 40 mg tablet 40 mg PO QAM 30 Days #30 tab 04/18/21 05/05/21 Rx Allergies Allergy/AdvReac Type Severity Reaction Status Date / Time salmon oil Allergy Severe HIVES-REDDENED Verified 05/05/21 15:07 ALL OVER Iodinated Contrast Media Allergy Intermediate HIVES-GI Verified 05/05/21 15:07 SYMPTOMS valsartan Allergy Intermediate FAST HEART Verified 05/05/21 15:07 BEAT bupropion AdvReac Mild GI SYMPTOMS Verified 05/05/21 15:07 enalapril AdvReac Mild GI SYMPTOMS Verified 05/05/21 15:07 escitalopram AdvReac Mild GI SYMPTOMS Verified 05/05/21 15:07 metoprolol AdvReac Mild LOWERS Verified 05/05/21 15:07 PULSE RATE verapamil AdvReac Mild GI UPSET, Verified 05/05/21 15:07 fast heart rate Past Med/Surg History Medical History Adrenal insufficiency Aortic valve stenosis, mild Asthma Chris-tachy syndrome Chronic atrial fibrillation Chronic diastolic CHF (congestive heart failure) Chronic HFrEF (heart failure with reduced ejection fraction) Chronic respiratory failure with hypoxia and hypercapnia COPD (chronic obstructive pulmonary disease) Diabetes mellitus, type 2 Diverticulitis Esophageal reflux Glaucoma of both eyes Hyperlipidemia Hypertension Lower GI bleed NICM (nonischemic cardiomyopathy) On home oxygen therapy 2L N/C at all times and 4 L N/C at night JORDAN (obstructive sleep apnea) Sleep apnea Subclinical hyperthyroidism Subepithelial mass of stomach Surgical History H/O colonoscopy "04/2014 - diverticular disease throughout colon, internal hemorrhoids, polyp removed" History of appendectomy History of cardiac cath "YEARS AGO"NO BLOCKAGES/NO STENTS-F/U DR THOMSON History of cholecystectomy History of dilatation and curettage History of esophagogastroduodenoscopy (EGD) "04/2014 - normal" History of incisional hernia repair History of tooth extraction all teeth Hx of small bowel obstruction "11/2017 - Seen [facility] - surgical intervention" Nausea and vomiting after administration of anesthetic agent Presence of Watchman left atrial appendage closure device 11/2019 @ [facility] [address] 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); Hx Alcohol Use: No Hx Substance Use: No Preferred Language: Turkmen Communication Ability: Effective Systems Consultant Required: No Beliefs That Will Affect Care: None marital status: / Current Living Situation: Alone Feels Safe at Home: Yes Assistive Devices: Glasses Review of Systems A total of 10 systems reviewed and were otherwise negative All systems reviewed & are unremarkable except as noted in HPI & below Physical Exam Vital Signs Vital Signs - 24 hr 05/05/21 16:22 Pulse Rate [Left] 98 H Pulse Rhythm [Left] Regular Pulse Strength [Left] Normal Respiratory Rate 19 Respiratory Effort / Characteristics Non-Labored Respiratory Depth Normal Respiratory Pattern Regular Blood Pressure [Left Arm] 110/70 Blood Pressure Mean [Left Arm] 83 Pulse Oximetry 99 Oxygen Delivery Method Nasal Cannula Oxygen Flow Rate 2 GENERAL: alert, well appearing, well nourished, no distress, non-toxic, BMI>40, nasal cannula in place EYE EXAM: normal conjunctiva, PERRL and EOM's grossly intact OROPHARYNX: no exudate, no erythema, lips, buccal mucosa, and tongue normal and mucous membranes are moist NECK: supple, no nuchal rigidity, no adenopathy, non-tender LUNGS: Clear to auscultation. Normal chest wall mechanics, no w/r/r HEART: no murmurs, S1 normal and S2 normal ABDOMEN: abdomen soft, left lower quadrant tenderness with palpation, normo- active bowel sounds, no masses, no rebound or guarding. BACK: Back is symmetrical on inspection and there is no deformity, no midline tenderness, no CVA tenderness. SKIN: no rashes and no bruising UPPER EXTREMITIES: upper extremities are grossly normal. FROM, nml pulses b/l. LOWER EXTREMITIES: No pitting edema. FROM, nml pulses b/l. NEURO EXAM: Normal sensorium, cranial nerves II-XII grossly intact, normal speech, no gross weakness of arms, no gross weakness of legs. Gross sensation intact. Course Course 170: Discussed with Dr. Ariza, general surgery. 171: Pt updated at bedside. Administered Medications Hydrocodone Bitart/Acetaminophen (Hydrocodone/Acetamophen 5/325mg Tab) 1 tab PO Q6H PRN PRN Reason: Pain Stop: 05/19/21 20:07 Last Admin: 05/06/21 13:09 Dose: 1 tab Documented by: [id number] Admin: 05/06/21 06:29 Dose: 1 tab Documented by: [id number] Admin: 05/05/21 21:54 Dose: 1 tab Documented by: [id number] Albuterol (Albuterol Hfa 8 Gm Inhaler (Combivent Respimat P&T Subs)) 1 puffs INH QIDR ANDREA Stop: 06/05/21 06:59 Last Admin: 05/06/21 15:31 Dose: Not Given Documented by: [id number] Admin: 05/06/21 12:14 Dose: 1 puffs Documented by: [id number] Admin: 05/06/21 07:44 Dose: 1 puffs Documented by: [id number] Aspirin (Aspirin 81 Mg Ectab) 81 mg PO DAILY ANDREA Stop: 06/05/21 08:59 Last Admin: 05/06/21 08:19 Dose: 81 mg Documented by: [id number] Atorvastatin Calcium (Atorvastatin 40 Mg Tab) 40 mg PO HS ANDREA Stop: 06/04/21 20:59 Last Admin: 05/05/21 21:14 Dose: 40 mg Documented by: [id number] Bimatoprost (Bimatoprost 0.01% Op Soln 2.5 Ml Btl) 1 drops OP HS ANDREA Stop: 06/04/21 20:59 Last Admin: 05/05/21 21:13 Dose: 1 drops Documented by: [id number] Brinzolamide (Brinzolamide (Azopt) Ops 10 Ml Btl) 1 drops OPB BID ANDREA Stop: 06/04/21 20:59 Last Admin: 05/06/21 08:18 Dose: 1 drops Documented by: [id number] Admin: 05/05/21 21:13 Dose: 1 drops Documented by: [id number] Dextrose (Dextrose 50% 50 Ml Syringe) 25 - 50 ml IV UD PRN; Protocol PRN Reason: Hypoglycemia Protocol Stop: 06/04/21 20:07 Last Admin: 05/05/21 21:29 Dose: 25 ml Documented by: [id number] Ferrous Sulfate (Ferrous Sulfate 325 Mg Tab) 325 mg PO QAM ANDREA Stop: 06/05/21 08:59 Last Admin: 05/06/21 08:21 Dose: 325 mg Documented by: [id number] Fludrocortisone Acetate (Fludrocortisone Acetate 0.1 Mg Tab) 0.1 mg PO QAM [facility] Stop: 06/05/21 08:59 Last Admin: 05/06/21 08:21 Dose: 0.1 mg Documented by: [id number] Fluticasone/Vilanterol (Fluticasone/Vilanterol 100/25mcg 14 Puffs/Inhaler) 1 puffs INH DAILY ANDREA Stop: 06/05/21 08:59 Last Admin: 05/06/21 08:18 Dose: 1 puffs Documented by: [id number] Furosemide (Furosemide 40 Mg Tab) 40 mg PO QAM ANDREA Stop: 06/05/21 08:59 Last Admin: 05/06/21 08:22 Dose: 40 mg Documented by: [id number] Glucose (Glucose 10 Tabs/Tube) 4 - 8 tabs PO UD PRN; Protocol PRN Reason: Hypoglycemia Protocol Stop: 06/04/21 20:07 Last Admin: 05/06/21 13:56 Dose: 4 tabs Documented by: [id number] Admin: 05/06/21 05:45 Dose: 4 tabs Documented by: [id number] Admin: 05/05/21 20:51 Dose: 4 tabs Documented by: [id number] Heparin Sodium (Porcine) (Heparin Sod 5,000 Unit/0.5 Ml Vial) 5,000 units SQ Q8 ANDREA Stop: 06/04/21 21:59 Last Admin: 05/06/21 13:06 Dose: Not Given Documented by: [id number] Admin: 05/06/21 05:34 Dose: Not Given Documented by: [id number] Admin: 05/05/21 21:07 Dose: Not Given Documented by: [id number] Piperacillin Sod/Tazobactam (Sod 4.5 gm/ Dextrose) 120 mls @ 30 mls/hr IV Q8H [facility]; Protocol Stop: 05/15/21 21:59 Last Admin: 05/06/21 13:09 Dose: 30 mls/hr Documented by: [id number] Infusion: 05/06/21 09:54 Dose: 0 mls/hr Documented by: [id number] Admin: 05/06/21 05:33 Dose: 30 mls/hr Documented by: [id number] Infusion: 05/06/21 01:25 Dose: 0 mls/hr Documented by: [id number] Admin: 05/05/21 21:15 Dose: 30 mls/hr Documented by: [id number] Insulin Aspart (Insulin Aspart 100 Units/Ml 3 Ml Pen) 0 units SC Q6 [facility] Stop: 06/05/21 00:00 Last Admin: 05/06/21 12:08 Dose: Not Given Documented by: [id number] Admin: 05/06/21 05:47 Dose: Not Given Documented by: [id number] Cosigned by: [id number] Admin: 05/05/21 23:50 Dose: 1 units Documented by: [id number] Cosigned by: [id number] Ipratropium [place] (Ipratropium Hfa Inhaler (Combivent Respimat P&T Subs)) 1 puffs INH QIDR [facility] Stop: 06/05/21 06:59 Last Admin: 05/06/21 15:31 Dose: Not Given Documented by: [id number] Admin: 05/06/21 12:13 Dose: 1 puffs Documented by: [id number] Admin: 05/06/21 07:43 Dose: 1 puffs Documented by: [id number] Lisinopril (Lisinopril 2.5 Mg Tab) 2.5 mg PO DAILY [facility] Stop: 06/05/21 08:59 Last Admin: 05/06/21 08:21 Dose: 2.5 mg Documented by: [id number] Methimazole (Methimazole 5 Mg Tablet) 10 mg PO DAILY [facility] Stop: 06/05/21 08:59 Last Admin: 05/06/21 08:19 Dose: 10 mg Documented by: [id number] Pantoprazole Sodium (Pantoprazole 40 Mg Tab) 40 mg PO BID ANDREA Stop: 06/04/21 20:59 Last Admin: 05/06/21 08:22 Dose: 40 mg Documented by: [id number] Admin: 05/05/21 21:15 Dose: 40 mg Documented by: [id number] Potassium Chloride (Potassium Chloride Crtab 20 Meq Tabcr) 20 meq PO DAILY ANDREA Stop: 06/05/21 08:59 Last Admin: 05/06/21 08:22 Dose: 20 meq Documented by: [id number] Vitamin D (Cholecalciferol 1,000 Units 25 Mcg Tab) 1,000 units PO QAM ANDREA Stop: 06/05/21 08:59 Last Admin: 05/06/21 08:20 Dose: 1,000 units Documented by: [id number] Discontinued Medications Diphenhydramine HCl (Diphenhydramine 50 Mg/Ml Vial) 25 mg IV NOW STA Stop: 05/05/21 15:58 Last Admin: 05/05/21 16:10 Dose: 25 mg Documented by: [id number] Sodium Chloride (Nss 1000ml) 1,000 mls @ 125 mls/hr IV .Q8H ANDREA Stop: 06/04/21 14:14 Last Infusion: 05/05/21 20:13 Dose: 0 mls/hr Documented by: [id number] Admin: 05/05/21 14:25 Dose: 125 mls/hr Documented by: [id number] Acetaminophen (Ofirmev) 1,000 mg in 100 mls @ 400 mls/hr IV NOW STA Stop: 05/05/21 14:26 Last Infusion: 05/05/21 14:39 Dose: 0 mls/hr Documented by: [id number] Admin: 05/05/21 14:24 Dose: 400 mls/hr Documented by: [id number] Piperacillin Sod/Tazobactam Sod (Zosyn) 4.5 gm in 120 mls @ 240 mls/hr IV NOW ONE Stop: 05/05/21 17:35 Last Infusion: 05/05/21 18:13 Dose: 0 mls/hr Documented by: [id number] Admin: 05/05/21 17:16 Dose: 240 mls/hr Documented by: [id number] Sodium Chloride (Nss 1000ml) 1,000 mls @ 100 mls/hr IV .Q10H ANDREA Stop: 06/04/21 20:07 Last Infusion: 05/05/21 21:18 Dose: 0 mls/hr Documented by: [id number] Admin: 05/05/21 20:32 Dose: 100 mls/hr Documented by: [id number] Dextrose/Sodium Chloride (D5w And Nss) 1,000 mls @ 75 mls/hr IV .[id number] ANDREA Stop: 06/04/21 21:29 Last Infusion: 05/06/21 11:32 Dose: 0 mls/hr Documented by: [id number] Infusion: 05/06/21 09:57 Dose: 75 mls/hr Documented by: [id number] Admin: 05/06/21 08:28 Dose: 75 mls/hr Documented by: [id number] Infusion: 05/06/21 08:17 Dose: 75 mls/hr Documented by: [id number] Infusion: 05/06/21 06:23 Dose: 75 mls/hr Documented by: [id number] Admin: 05/05/21 21:31 Dose: 100 mls/hr Documented by: [id number] Furosemide 20 mg/ Syringe 2 mls @ 4 mls/min IV ONE ONE Stop: 05/06/21 14:01 Last Admin: 05/06/21 13:06 Dose: 4 mls/min Documented by: [id number] Insulin Aspart (Insulin Aspart 100 Units/Ml 3 Ml Pen) 0 units SC ACHS ANDREA Stop: 06/04/21 20:59 Last Admin: 05/05/21 21:48 Dose: Not Given Documented by: [id number] Cosigned by: [id number] Ioversol (Optiray 320 100ml) 94 ml IV ONCE ONE Stop: 05/05/21 15:58 Last Admin: 05/05/21 15:58 Dose: 1 ml Documented by: [id number] Miscellaneous (Zafirlukast ~ Order Awaiting Action) 1 ea N/A QS ANDREA Stop: 06/05/21 00:00 Last Admin: 05/06/21 08:28 Dose: Not Given Documented by: [id number] Admin: 05/05/21 23:48 Dose: Not Given Documented by: [id number] Ondansetron HCl (Ondansetron Inj 2 Mg/Ml 2 Ml Vial) 4 mg IV NOW STA Stop: 05/05/21 14:13 Last Admin: 05/05/21 14:25 Dose: 4 mg Documented by: [id number] Medical Decision Making Differential Diagnosis Differential diagnoses includes but is not limited to gastritis, peptic ulcer disease, GERD, gallbladder disease, pancreatitis, small bowel obstruction, acute coronary syndrome, pericarditis, ischemic bowel, irritable bowel disease, irritable bowel syndrome, appendicitis, diverticulitis, malignancy, hernia, urinary tract infection, torsion, [/ectopic (if female)], perforation, trauma, infectious. Medical Records Attestation: I reviewed the patient's medical records. Home Medications Current Medication List: was personally reviewed by me Laboratory Data Attestation: I reviewed the patient's lab results. Result diagrams: 05/06/21 07:47 05/06/21 07:47 Lab Results 05/05/21 05/05/21 05/05/21 Range/Units 14:20 14:20 14:20 WBC 13.76 H (4.8-10.8) K/uL RBC 4.19 L (4.2-5.4) M/uL Hgb 12.0 (12.0-16.0) g/dL Hct 38.7 (37-47) % MCV 92.4 (80-100) fL MCH 28.6 (25-34) pg MCHC 31.0 L (32-36) g/dL RDW Std Deviation 49.1 H (36.4-46.3) fL RDW Coeff of Jesika 14.5 (11.5-14.5) % Plt Count 415 H (130-400) K/uL MPV 9.7 (7.4-10.4) fL Immature Gran % (Auto) 0.4 % Neut % (Auto) 59.1 % Lymph % (Auto) 27.0 % Sequoyah % (Auto) 9.7 % Eos % (Auto) 3.5 % Baso % (Auto) 0.3 % Neut # (Auto) 8.13 H (1.4-6.5) K/uL Lymph # (Auto) 3.71 H (1.2-3.4) K/uL Sequoyah # (Auto) 1.34 H (0.11-0.59) K/uL Eos # (Auto) 0.48 (0-0.5) K/uL Baso # (Auto) 0.04 (0-0.2) K/uL Immature Gran # (Auto) 0.06 H (0.00-0.02) K/uL Sodium 139 (136-145) mmol/L Potassium 4.1 (3.5-5.1) mmol/L Chloride 105 (98-107) mmol/L Carbon Dioxide 35 H (21-32) mmol/L Anion Gap -1.0 L (3-11) BUN 16 (7-18) mg/dl Creatinine 1.14 (0.6-1.2) mg/dl Est Cr Clr Drug Dosing 47.4 ml/min Est GFR ( Amer) 51.9 ml/min Est GFR (Non-Af Amer) 44.7 ml/min BUN/Creatinine Ratio 13.8 (10-20) Glucose 142 H (70-99) mg/dl Lactate 1.2 (0.4-2.0) mmol/L Calcium 9.6 (8.5-10.1) mg/dl Total Bilirubin 0.3 (0.2-1) mg/dl AST 10 L (15-37) U/L ALT 18 (12-78) U/L Alkaline Phosphatase 154 H (45-117) U/L Total Protein 8.0 (6.4-8.2) gm/dl Albumin 3.4 (3.4-5.0) gm/dl Globulin 4.6 H (2.5-4.0) gm/dl Albumin/Globulin Ratio 0.7 L (0.9-2) Lipase 48 L (73-393) U/L Urine Color Urine Appearance (Clear) Urine pH (4.5-7.5) Ur Specific [place] (1.000-1.030) Urine Protein (Negative) Urine Glucose (UA) (Negative) Urine Ketones (Negative) Urine Blood (Negative) Urine Nitrite (Negative) Urine Bilirubin (Negative) Urine Urobilinogen (Negative) Ur Leukocyte Esterase (Negative) Urine WBC (Auto) (0-5) /hpf Urine RBC (Auto) (0-4) /hpf U Hyaline Cast (Auto) (0-5) /lpf U Epithel Cells (Auto) (0-5) /lpf Urine Bacteria (Auto) (Negative) COVID-19 Eval Order SARS-CoV-2 (PCR) (Negative) 05/05/21 05/05/21 05/05/21 Range/Units 14:23 17:27 17:27 WBC (4.8-10.8) K/uL RBC (4.2-5.4) M/uL Hgb (12.0-16.0) g/dL Hct (37-47) % MCV (80-100) fL MCH (25-34) pg MCHC (32-36) g/dL RDW Std Deviation (36.4-46.3) fL RDW Coeff of Jesika (11.5-14.5) % Plt Count (130-400) K/uL MPV (7.4-10.4) fL Immature Gran % (Auto) % Neut % (Auto) % Lymph % (Auto) % [place] % (Auto) % Eos % (Auto) % Baso % (Auto) % Neut # (Auto) (1.4-6.5) K/uL Lymph # (Auto) (1.2-3.4) K/uL [place] # (Auto) (0.11-0.59) K/uL Eos # (Auto) (0-0.5) K/uL Baso # (Auto) (0-0.2) K/uL Immature Gran # (Auto) (0.00-0.02) K/uL Sodium (136-145) mmol/L Potassium (3.5-5.1) mmol/L Chloride (98-107) mmol/L Carbon Dioxide (21-32) mmol/L Anion Gap (3-11) BUN (7-18) mg/dl Creatinine (0.6-1.2) mg/dl Est Cr Clr Drug Dosing ml/min Est GFR ( Amer) ml/min Est GFR (Non-Af Amer) ml/min BUN/Creatinine Ratio (10-20) Glucose (70-99) mg/dl Lactate (0.4-2.0) mmol/L Calcium (8.5-10.1) mg/dl Total Bilirubin (0.2-1) mg/dl AST (15-37) U/L ALT (12-78) U/L Alkaline Phosphatase (45-117) U/L Total Protein (6.4-8.2) gm/dl Albumin (3.4-5.0) gm/dl Globulin (2.5-4.0) gm/dl Albumin/Globulin Ratio (0.9-2) Lipase (73-393) U/L Urine Color Yellow Urine Appearance Clear (Clear) Urine pH 6.0 (4.5-7.5) Ur Specific [place] 1.010 (1.000-1.030) Urine Protein Negative (Negative) Urine Glucose (UA) Negative (Negative) Urine Ketones Negative (Negative) Urine Blood Negative (Negative) Urine Nitrite Negative (Negative) Urine Bilirubin Negative (Negative) Urine Urobilinogen Negative (Negative) Ur Leukocyte Esterase 1+ H (Negative) Urine WBC (Auto) 1-5 (0-5) /hpf Urine RBC (Auto) 5-10 H (0-4) /hpf U Hyaline Cast (Auto) 1-5 (0-5) /lpf U Epithel Cells (Auto) >30 H (0-5) /lpf Urine Bacteria (Auto) Negative (Negative) COVID-19 Eval Order Covid19 at [facility] SARS-CoV-2 (PCR) NEGATIVE (Negative) Imaging Data Radiologist's Impression: Abdomen/Pelvis CT 05/05/21 15:41 CT OF THE ABDOMEN AND PELVIS WITH CONTRAST CLINICAL HISTORY: Left lower quadrant abdominal pain. COMPARISON STUDY: CT of the abdomen and pelvis April 14, 2021. Pelvic ultrasound April 17, 2021. TECHNIQUE: Following IV administration of 94 mL of Optiray, axial images of the abdomen and pelvis were obtained from the lung bases to the proximal femurs. Images were reviewed in the axial, sagittal, and coronal planes. IV contrast was administered without complication. Automated exposure control was utilized for the study. A dose lowering technique was utilized adhering to the principles of ALARA. CT DOSE: 1590.33 mGy.cm FINDINGS: Lung bases are unremarkable. Moderate cardiomegaly is noted. There is no pneumatosis, free air or portal venous gas. The liver, spleen, right adrenal gland and pancreas are unremarkable. A 1.8 cm left adrenal nodule is unchanged from earlier exams. This is benign and favors an adenoma. There are several renal cysts. A few lesions within the kidneys are too small characterize. Endometrial prominence is again noted. This is better assessed on pelvic ultrasound April 17, 2021. There is extensive colonic diverticulosis. Note is made of moderate wall thickening of the proximal sigmoid colon which has increased in degree since prior CT of April 14, 2021. Adjacent infiltration is noted. There is an associated 2.6 cm fluid and gas containing focus along the sigmoid colon on image 300. This was shown on prior exam but was predominantly gas-filled. Findings represent acute diverticulitis. This inflammation is immediately adjacent to the left ovary. Small ventral hernia contains a portion of small bowel. There is no bowel obstruction. Major vasculature is patent. IMPRESSION: Progression of findings consistent with acute sigmoid diverticulitis since CT of April 14, 2021. Sigmoid colon wall thickening with pericolonic infiltration and a 2.6 cm fluid and gas containing focus along the sigmoid colon which could reflect a diverticulum or small diverticular abscess. Inflammatory process adjacent to the left ovary, as before. A colonoscopy once symptoms resolve is recommended to exclude the less likely possibility of an underlying mass. ACT 112: Negative or not required by law. Electronically signed by: Shadi Ravi M.D. 05/05/2021 4:57 PM MDM Narrative This is an 80-year-old female presents emergency department complaining of more than a week of left lower abdominal pain which she felt was similar to prior urinary tract infections or prior episode of diverticulitis. Labs are drawn and sent, urine collected. Patient sent for CT imaging. Patient did have a mild leukocytosis, lactic acid reassuring. Patient's UA unremarkable. CT imaging did show diverticulitis with pericolonic abscess. Case discussed with general surgery who agreed with medical management and no need for acute IR surgical intervention at this time. Case discussed with hospitalist team for additional evaluation and management. IV Zosyn was added to the patient. She was afebrile and hemodynamically stable in the emergency room. Medications given for pain and nausea, and gentle IV fluid rehydration started. An order was placed for continuous cardiac monitoring. The monitor shows a rate of _92 with _normal sinus_ rhythm. Impression & Plan Abdominal pain, Diverticulitis, Colonic diverticular abscess Discharge Plan Visit Data Chief Complaint: Abdominal Pain Stated Complaint: Abdominal Pain for a week ED Provider: Randa [place] Discharge Problem: Abdominal pain, Diverticulitis, Colonic diverticular abscess Patient Disposition: Admitted As Inpatient Condition: Fair Discharge Instructions Interventions: ED Discharge Assessment Last Done: 05/05/21 19:20
[2021-05-05 14:39] LABS: Basophils # (auto) 0.04 K/uL (0-0.2); Basophils % (auto) 0.3 %; Eosinophils # (auto) 0.48 K/uL (0-0.5); Eosinophils % (auto) 3.5 %; Hematocrit (blood only) 38.7 % (37-47); Immature Granulocytes # (auto) 0.06 K/uL (0.00-0.02); Immature Granulocytes % (auto) 0.4 %; Lymphocytes # (auto) 3.71 K/uL (1.2-3.4); Mean Corpuscular Hemoglobin 28.6 pg (25-34); Mean Corpuscular Volume 92.4 fL (80-100); Mean Platelet Volume 9.7 fL (7.4-10.4); Monocytes # (auto) 1.34 K/uL (0.11-0.59); Monocytes % (auto) 9.7 %; Neutrophils # (auto) 8.13 K/uL (1.4-6.5); Neutrophils % (auto) 59.1 %; Platelet Count 415 K/uL (130-400); RDW Coefficient of Variation 14.5 % (11.5-14.5); RDW Standard Deviation 49.1 fL (36.4-46.3); Red Blood Count 4.19 M/uL (4.2-5.4); White Blood Count 13.76 K/uL (4.8-10.8)
[2021-05-05 14:52] LABS: Appearance Urine Clear (Clear); Bacteria Urine Automated Negative (Negative); Bilirubin Urine Negative (Negative); Blood Urine Negative (Negative); Color Urine Yellow; Epithelial Cell Urine Auto >30 /lpf (0-5); Glucose Urine UA Negative (Negative); Ketones Urine Negative (Negative); Leukocyte Esterase Urine 1+ (Negative); Nitrite Urine Negative (Negative); Protein Urine Negative (Negative); Urobilinogen Urine Negative (Negative)
[2021-05-05 15:01] LABS: Albumin Level 3.4 gm/dl (3.4-5.0); BUN Creatinine Ratio 13.8 (10-20); Calcium 9.6 mg/dl (8.5-10.1); Creatinine Clr Calc Pharmacy 47.4 ml/min; Est GFR (African American) 51.9 ml/min; Est GFR (Non-African American) 44.7 ml/min; Potassium 4.1 mmol/L (3.5-5.1)
[2021-05-05 15:04] LABS: Albumin Globulin Ratio 0.7 (0.9-2); Bilirubin,Total 0.3 mg/dl (0.2-1); Globulin 4.6 gm/dl (2.5-4.0)
[2021-05-05] MEDS ORDERED: diphenhydrAMINE 50 MG/ML VIAL IV STA (15:57)
[2021-05-05] MEDS ORDERED: OPTIRAY 320 100ml IV ONE (15:57)
--- NOTE | 2021-05-05 16:58 | CT Scan Report ---
CT OF THE ABDOMEN AND PELVIS WITH CONTRAST CLINICAL HISTORY: Left lower quadrant abdominal pain. COMPARISON STUDY: CT of the abdomen and pelvis April 14, 2021. Pelvic ultrasound April 17, 2021. TECHNIQUE: Following IV administration of 94 mL of Optiray, axial images of the abdomen and pelvis we re obtained from the lung bases to the proximal femurs. Images were reviewed in the axial, sagittal, and coronal planes. IV contrast was administered without complication. Automated exposure control wa s utilized for the study. A dose lowering technique was utilized adhering to the principles of ALARA . CT DOSE: 1590.33 mGy.cm FINDINGS: Lung bases are unremarkable. Moderate cardiomegaly is noted. There is no pneumatosis, free air or portal venous gas. The liver, spleen, right adrenal gland and pancreas are unremarkable. A 1.8 cm left adrenal nodule is unchanged from earlier exams. This is benign and favors an adenoma. There are several renal cysts. A few lesions within the kidneys are too small characterize. Endometrial pro minence is again noted. This is better assessed on pelvic ultrasound April 17, 2021. There is extensive colonic diverticulosis. Note is made of moderate wall thickening of the proximal sigmoid colon which has increased in degree since prior CT of April 14, 2021. Adjacent infiltration is noted. There is an associated 2.6 cm fluid and gas containing focus along the sigmoid colon on image 300. This was shown on prior exam but was predominantly gas-filled. Findings represent acute diverticulitis. This inflam mation is immediately adjacent to the left ovary. Small ventral hernia contains a portion of small peace wel. There is no bowel obstruction. Major vasculature is patent. IMPRESSION: Progression of findings consistent with acute sigmoid diverticulitis since CT of April 14, 2021. Sigmoid colon wall thickening with pericolonic infiltration and a 2.6 cm fluid and gas contain ing focus along the sigmoid colon which could reflect a diverticulum or small diverticular abscess. I nflammatory process adjacent to the left ovary, as before. A colonoscopy once symptoms resolve is rec ommended to exclude the less likely possibility of an underlying mass. ACT 112: Negative or not required by law. Electronically signed by: Shadi Ravi M.D. 05/05/2021 4:57 PM
[2021-05-05] MEDS ORDERED: PIPERACILL/TAZOBAC CONSULT ACTIVE PRN ×2 (17:06→20:08)
[2021-05-05] MEDS ORDERED: PIPERACILLIN/TAZOBACTAM 4.5 GM/120 ML BAG IV ONE (17:06)
--- NOTE | 2021-05-05 18:16 | Surgery Consultation ---
Date of Consultation May 05, 2021 Assessment & Plan (1) Diverticulitis: Patient will be admitted to the hospital for medical management Limited p.o. with bowel rest and IV antibiotics She likely should just have ice for 48 hours and then slowly advance her diet We will be sure to follow during her hospitalization May consider colonoscopy at some point, she is high risk for any surgical intervention History of Present Illness History of Present Illness 80-year-old female presenting to the emergency room with abdominal pain On CT scan she has acute diverticulitis with a 2.6 cm pericolonic fluid collection/abscess Clinically she is very stable She does have some respiratory issues and was in the hospital recently for at least 10 days with shortness of breath Allergies Allergy/AdvReac Type Severity Reaction Status Date / Time salmon oil Allergy Severe HIVES-REDDENED Verified 05/05/21 15:07 ALL OVER Iodinated Contrast Media Allergy Intermediate HIVES-GI Verified 05/05/21 15:07 SYMPTOMS valsartan Allergy Intermediate FAST HEART Verified 05/05/21 15:07 BEAT bupropion AdvReac Mild GI SYMPTOMS Verified 05/05/21 15:07 enalapril AdvReac Mild GI SYMPTOMS Verified 05/05/21 15:07 escitalopram AdvReac Mild GI SYMPTOMS Verified 05/05/21 15:07 metoprolol AdvReac Mild LOWERS Verified 05/05/21 15:07 PULSE RATE verapamil AdvReac Mild GI UPSET, Verified 05/05/21 15:07 fast heart rate Home Medications Medication Instructions Recorded Confirmed Type atorvastatin 40 mg tablet 40 mg PO HS 06/23/19 05/05/21 History cholecalciferol (vitamin D3) 25 1,000 unit PO QAM 06/23/19 05/05/21 History mcg (1,000 unit) capsule (Vitamin D3) docusate sodium 100 mg capsule 100 mg PO QAM 06/23/19 05/05/21 History omeprazole 20 mg capsule,delayed 20 mg PO BID 06/23/19 05/05/21 History release albuterol sulfate 2.5 mg INHALATION BID PRN 09/25/19 05/05/21 History bimatoprost 0.01 % eye drops 1 drp OPB HS 09/25/19 05/05/21 History (Lumigan) brinzolamide 1 % eye 1 drp OPB BID 09/25/19 05/05/21 History drops,suspension (Azopt) polyethylene glycol 3350 17 17 g PO BID PRN 09/25/19 05/05/21 History gram/dose oral powder (Miralax) ferrous sulfate 325 mg (65 mg 325 mg PO QAM tab 02/23/20 05/05/21 History iron) tablet (iron) glimepiride 4 mg tablet 2 mg PO QAM tab 02/23/20 05/05/21 History multivitamin 1 tab PO QAM 06/02/20 05/05/21 History dicyclomine 20 mg tablet 20 mg PO BID 30 Days #60 tab 06/16/20 05/05/21 Rx promethazine 25 mg tablet 25 mg PO Q6H PRN #60 tab 06/16/20 05/05/21 Rx hydrocodone 5 mg-acetaminophen 325 1 tab PO Q6H PRN 07/28/20 05/05/21 History mg tablet lactobacillus combination no.4 3 3,000 mmu cells PO QAM 07/28/20 05/05/21 History billion cell capsule (Probiotic) zafirlukast 20 mg tablet 20 mg PO QAM 09/11/20 05/05/21 History albuterol sulfate 90 mcg/actuation 2 puff INHALATION QID PRN #6.7 g 10/30/20 05/05/21 Rx aerosol inhaler (Ventolin HFA) aspirin 81 mg tablet,delayed 81 mg PO DAILY 02/05/21 05/05/21 History release (Aspirin Low Dose) lisinopril 2.5 mg tablet 2.5 mg PO DAILY 02/05/21 05/05/21 History spironolactone 25 mg tablet 12.5 mg PO DAILY #30 tab 03/02/21 05/05/21 Rx methimazole 10 mg tablet 10 mg PO DAILY 03/07/21 05/05/21 History fluticasone propionate 230 2 puff INHALATION BID 04/09/21 05/05/21 History mcg-salmeterol 21 mcg/actuation HFA inhaler (Advair HFA) ipratropium 20 mcg-albuterol 100 1 puff INHALATION QID 04/09/21 05/05/21 History mcg/actuation mist for inhalation (Combivent Respimat) potassium chloride 20 mEq 20 meq PO DAILY 04/09/21 05/05/21 History tablet,extended release(part/cryst) (Klor-Con M) fludrocortisone 0.1 mg tablet 0.1 mg PO QAM 30 Days #30 tab 04/18/21 05/05/21 Rx furosemide 20 mg tablet 20 mg PO DAILY@1700 30 Days #30 tab 04/18/21 05/05/21 Rx furosemide 40 mg tablet 40 mg PO QAM 30 Days #30 tab 04/18/21 05/05/21 Rx Patient History Medical History Adrenal insufficiency Aortic valve stenosis, mild Asthma Chris-tachy syndrome Chronic atrial fibrillation Chronic diastolic CHF (congestive heart failure) Chronic HFrEF (heart failure with reduced ejection fraction) Chronic respiratory failure with hypoxia and hypercapnia COPD (chronic obstructive pulmonary disease) Diabetes mellitus, type 2 Diverticulitis Esophageal reflux Glaucoma of both eyes Hyperlipidemia Hypertension Lower GI bleed NICM (nonischemic cardiomyopathy) On home oxygen therapy 2L N/C at all times and 4 L N/C at night JORDAN (obstructive sleep apnea) Sleep apnea Subclinical hyperthyroidism Subepithelial mass of stomach Surgical History H/O colonoscopy "04/2014 - diverticular disease throughout colon, internal hemorrhoids, polyp removed" History of appendectomy History of cardiac cath "YEARS AGO"NO BLOCKAGES/NO STENTS-F/U DR THOMSON History of cholecystectomy History of dilatation and curettage History of esophagogastroduodenoscopy (EGD) "04/2014 - normal" History of incisional hernia repair History of tooth extraction all teeth Hx of small bowel obstruction "11/2017 - Seen [facility] - surgical intervention" Nausea and vomiting after administration of anesthetic agent Presence of Watchman left atrial appendage closure device 11/2019 @ [facility] Dr. 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); Hx Alcohol Use: No Hx Substance Use: No Preferred Language: Arabic Communication Ability: Effective Nondestructive Tester Required: No Beliefs That Will Affect Care: None marital status: / Current Living Situation: Alone Feels Safe at Home: Yes Assistive Devices: Oxygen - Continuous (2L during the day, 4L night) Review of Systems Review of Systems: All systems reviewed & are unremarkable except as noted in HPI & below Physical Exam Physical Exam: Patient has left lower quadrant pain to deep palpation Constitutional: well nourished; no acute distress Eyes: + anicteric sclerae Respiratory: + labored breathing Cardiovascular: Rate/Rhythm: regular rate Gastrointestinal (Abdomen): Inspection/Auscultation: abdomen not distended Skin: no rashes Psychiatric: Orientation: alert Insight: good insight Results & Data ([facility]) Vital Signs (Past 12 Hours) Vital Signs Temp Pulse Pulse Resp BP BP Pulse Ox 05/05/21 16:22 98 H 19 110/70 99 05/05/21 15:16 84 18 114/69 99 05/05/21 14:12 84 22 136/109 H 98 05/05/21 13:13 36.4 C L 93 H 18 121/77 97 PG Care Time/CCT Total # of Minutes Spent Total Time Spent with Patient: Total time spent is greater than 50% in coordination of care (as documented) at patient's floor/unit and/or counseling patient: Coding Level of Care Code 69028 Initial Inpt Care Lvl 3 Diagnoses Diverticulitis K57.92
--- NOTE | 2021-05-05 18:52 | History & Physical Report ---
Date of Service May 05, 2021 Assessment & Plan (1) Acute diverticulitis: (2) Colonic diverticular abscess: Plan: -Admit to [facility] -Patient presenting from home with reports of LLQ abdominal pain x 1 week -In the ED, CT ABD/pelvis shows acute sigmoid diverticulitis with 2.6 cm diverticular abscess -Hemodynamically stable, does not appear septic -S/p IV Zosyn in the ED, continue with -N.p.o., IVF, pain control -General surgery consult, input appreciated (3) NICM (nonischemic cardiomyopathy): (4) Chronic diastolic CHF (congestive heart failure): (5) Chronic HFrEF (heart failure with reduced ejection fraction): Plan: -EF 40 to 45% -Hold diuretics while receiving IVF as above (6) Adrenal insufficiency: Plan: -Diagnosed during recent admission -Discharged on hydrocortisone and fludrocortisone -Patient reports that daughter received instructions from endocrine Dr. Voss for hydrocortisone taper, which completed yesterday -Continue fludrocortisone -Follow-up as an outpatient with endocrine (7) Chronic atrial fibrillation: Plan: -Digoxin and carvedilol discontinued during recent admission due to bradycardia -Heart rate currently controlled -Has watchman device in place (8) Diabetes mellitus, type 2: Plan: -Hgb A1c 7.1 03/2021 -Hold oral agents and utilize NovoLog per protocol while hospitalized (9) COPD (chronic obstructive pulmonary disease): Plan: -No signs of acute exacerbation, continue home inhalers (10) Subclinical hyperthyroidism: Plan: -Continue methimazole (11) DVT prophylaxis: Plan: -SQ heparin History of Present Illness Chief Complaint: Abdominal pain Primary Care Provider: Marcela Pinto MD 80-year-old female with PMH DM type II, CKD stage III, COPD, chronic hypoxic respiratory failure on chronic 2 L of oxygen, chronic systolic and diastolic CHF, atrial fibrillation with watchman device in place, adrenal insufficiency, and other problems listed below who presents to the ED for evaluation of left lower quadrant abdominal pain. Patient recently admitted to [facility] 04/10 through 04/18 for management of ESBL E. coli UTI, tachybradycardia syndrome, and newly diagnosed adrenal insufficiency. Patient reports she developed left lower quadrant abdominal pain about 1 week ago. Reports discomfort has been persistent. Reports some associated nausea however no vomiting. Denies diarrhea, bright red bleeding per rectum, dark tarry stools. No fevers or chills. Denies chest pain. Reports chronic exertional shortness of breath which is unchanged from baseline. No lightheadedness, dizziness, diaphoresis, syncopal events. Denies urinary symptoms. In the ED, CT ABD/pelvis shows acute sigmoid diverticulitis with 2.6 cm diverticular abscess. Patient is hemodynamically stable. She was given IV Tylenol, IV diphenhydramine, IV Zofran, IV Zosyn, IVF. Allergies Allergy/AdvReac Type Severity Reaction Status Date / Time salmon oil Allergy Severe HIVES-REDDENED Verified 05/05/21 15:07 ALL OVER Iodinated Contrast Media Allergy Intermediate HIVES-GI Verified 05/05/21 15:07 SYMPTOMS valsartan Allergy Intermediate FAST HEART Verified 05/05/21 15:07 BEAT bupropion AdvReac Mild GI SYMPTOMS Verified 05/05/21 15:07 enalapril AdvReac Mild GI SYMPTOMS Verified 05/05/21 15:07 escitalopram AdvReac Mild GI SYMPTOMS Verified 05/05/21 15:07 metoprolol AdvReac Mild LOWERS Verified 05/05/21 15:07 PULSE RATE verapamil AdvReac Mild GI UPSET, Verified 05/05/21 15:07 fast heart rate Home Medications Medication Instructions Recorded Confirmed Type atorvastatin 40 mg tablet 40 mg PO HS 06/23/19 05/05/21 History cholecalciferol (vitamin D3) 25 1,000 unit PO QAM 06/23/19 05/05/21 History mcg (1,000 unit) capsule (Vitamin D3) docusate sodium 100 mg capsule 100 mg PO QAM 06/23/19 05/05/21 History omeprazole 20 mg capsule,delayed 20 mg PO BID 06/23/19 05/05/21 History release albuterol sulfate 2.5 mg INHALATION BID PRN 09/25/19 05/05/21 History bimatoprost 0.01 % eye drops 1 drp OPB HS 09/25/19 05/05/21 History (Lumigan) brinzolamide 1 % eye 1 drp OPB BID 09/25/19 05/05/21 History drops,suspension (Azopt) polyethylene glycol 3350 17 17 g PO BID PRN 09/25/19 05/05/21 History gram/dose oral powder (Miralax) ferrous sulfate 325 mg (65 mg 325 mg PO QAM tab 02/23/20 05/05/21 History iron) tablet (iron) glimepiride 4 mg tablet 2 mg PO QAM tab 02/23/20 05/05/21 History multivitamin 1 tab PO QAM 06/02/20 05/05/21 History dicyclomine 20 mg tablet 20 mg PO BID 30 Days #60 tab 06/16/20 05/05/21 Rx promethazine 25 mg tablet 25 mg PO Q6H PRN #60 tab 06/16/20 05/05/21 Rx hydrocodone 5 mg-acetaminophen 325 1 tab PO Q6H PRN 07/28/20 05/05/21 History mg tablet lactobacillus combination no.4 3 3,000 mmu cells PO QAM 07/28/20 05/05/21 History billion cell capsule (Probiotic) zafirlukast 20 mg tablet 20 mg PO QAM 09/11/20 05/05/21 History albuterol sulfate 90 mcg/actuation 2 puff INHALATION QID PRN #6.7 g 10/30/20 05/05/21 Rx aerosol inhaler (Ventolin HFA) aspirin 81 mg tablet,delayed 81 mg PO DAILY 02/05/21 05/05/21 History release (Aspirin Low Dose) lisinopril 2.5 mg tablet 2.5 mg PO DAILY 02/05/21 05/05/21 History spironolactone 25 mg tablet 12.5 mg PO DAILY #30 tab 03/02/21 05/05/21 Rx methimazole 10 mg tablet 10 mg PO DAILY 03/07/21 05/05/21 History fluticasone propionate 230 2 puff INHALATION BID 04/09/21 05/05/21 History mcg-salmeterol 21 mcg/actuation HFA inhaler (Advair HFA) ipratropium 20 mcg-albuterol 100 1 puff INHALATION QID 04/09/21 05/05/21 History mcg/actuation mist for inhalation (Combivent Respimat) potassium chloride 20 mEq 20 meq PO DAILY 04/09/21 05/05/21 History tablet,extended release(part/cryst) (Klor-Con M) fludrocortisone 0.1 mg tablet 0.1 mg PO QAM 30 Days #30 tab 04/18/21 05/05/21 Rx furosemide 20 mg tablet 20 mg PO DAILY@1700 30 Days #30 tab 04/18/21 05/05/21 Rx furosemide 40 mg tablet 40 mg PO QAM 30 Days #30 tab 04/18/21 05/05/21 Rx Past Med/Surg History Medical History Adrenal insufficiency Aortic valve stenosis, mild Asthma Chris-tachy syndrome Chronic atrial fibrillation Chronic diastolic CHF (congestive heart failure) Chronic HFrEF (heart failure with reduced ejection fraction) Chronic respiratory failure with hypoxia and hypercapnia COPD (chronic obstructive pulmonary disease) Diabetes mellitus, type 2 Diverticulitis Esophageal reflux Glaucoma of both eyes Hyperlipidemia Hypertension Lower GI bleed NICM (nonischemic cardiomyopathy) On home oxygen therapy 2L N/C at all times and 4 L N/C at night JORDAN (obstructive sleep apnea) Sleep apnea Subclinical hyperthyroidism Subepithelial mass of stomach Surgical History H/O colonoscopy "04/2014 - diverticular disease throughout colon, internal hemorrhoids, polyp removed" History of appendectomy History of cardiac cath "YEARS AGO"NO BLOCKAGES/NO STENTS-F/U DR THOMSON History of cholecystectomy History of dilatation and curettage History of esophagogastroduodenoscopy (EGD) "04/2014 - normal" History of incisional hernia repair History of tooth extraction all teeth Hx of small bowel obstruction "11/2017 - Seen [facility] - surgical intervention" Nausea and vomiting after administration of anesthetic agent Presence of Watchman left atrial appendage closure device 11/[address] @ [facility] [address] 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); Hx Alcohol Use: No Hx Substance Use: No Preferred Language: Azeri Communication Ability: Effective Machine Stacker Required: No Beliefs That Will Affect Care: None marital status: / Current Living Situation: Alone Feels Safe at Home: Yes Assistive Devices: Glasses and Oxygen - Continuous Review of Systems Review of Systems: ROS per HPI, all other systems reviewed and negative Physical Exam Constitutional: WD/WN, vitals as above Eyes: PERRL, conjunctivae normal, anicteric sclerae ENMT: external ear and nose normal, oropharynx normal Respiratory: normal respiratory effort, lungs clear to auscultation Cardiovascular: Rate/Rhythm: regular rate and + irregularly irregular Vessels: normal peripheral pulses Extremities: no edema Gastrointestinal (Abdomen): Inspection/Auscultation: normal bowel sounds; abdomen not distended Percussion/Palpation: + abdomen tender (LLQ) and abdomen soft; no guarding, abdomen not rigid and no hepatosplenomegaly Musculoskeletal: no cyanosis or clubbing, extremities motor strength 5/5 Skin: no rashes, warm and dry Neurologic: PERRL, EOMI, accommodation nl, no face palsy, no dysarthria Psychiatric: A+Ox3, euthymic affect Results & Data Results & Data ([facility]) Vital Signs (Past 12 Hours) Vital Signs Temp Pulse Pulse Resp BP BP Pulse Ox 05/05/21 18:00 91 H 18 110/64 99 05/05/21 16:22 98 H 19 110/70 99 05/05/21 15:16 84 18 114/69 99 05/05/21 14:12 84 22 136/109 H 98 05/05/21 13:13 36.4 C L 93 H 18 121/77 97 Laboratory Results Short CBC 05/05/21 Range/Units 14:20 WBC 13.76 H (4.8-10.8) K/uL Hgb 12.0 (12.0-16.0) g/dL Hct 38.7 (37-47) % Plt Count 415 H (130-400) K/uL BMP 05/05/21 14:20 Sodium 139 Potassium 4.1 Chloride 105 Carbon Dioxide 35 H BUN 16 Creatinine 1.14 Glucose 142 H Calcium 9.6 Liver Function 05/05/21 Range/Units 14:20 Total Bilirubin 0.3 (0.2-1) mg/dl AST 10 L (15-37) U/L ALT 18 (12-78) U/L Alkaline Phosphatase 154 H (45-117) U/L Albumin 3.4 (3.4-5.0) gm/dl Urine 05/05/21 Range/Units 14:23 Urine Color Yellow Urine Appearance Clear (Clear) Urine pH 6.0 (4.5-7.5) Ur Specific [place] 1.010 (1.000-1.030) Urine Protein Negative (Negative) Urine Glucose (UA) Negative (Negative) Diagnostic Findings Abdomen/Pelvis CT 05/05/21 15:41 CT OF THE ABDOMEN AND PELVIS WITH CONTRAST CLINICAL HISTORY: Left lower quadrant abdominal pain. COMPARISON STUDY: CT of the abdomen and pelvis April 14, 2021. Pelvic ultrasound April 17, 2021. TECHNIQUE: Following IV administration of 94 mL of Optiray, axial images of the abdomen and pelvis were obtained from the lung bases to the proximal femurs. Images were reviewed in the axial, sagittal, and coronal planes. IV contrast was administered without complication. Automated exposure control was utilized for the study. A dose lowering technique was utilized adhering to the principles of ALARA. CT DOSE: 1590.33 mGy.cm FINDINGS: Lung bases are unremarkable. Moderate cardiomegaly is noted. There is no pneumatosis, free air or portal venous gas. The liver, spleen, right adrenal gland and pancreas are unremarkable. A 1.8 cm left adrenal nodule is unchanged from earlier exams. This is benign and favors an adenoma. There are several renal cysts. A few lesions within the kidneys are too small characterize. Endometrial prominence is again noted. This is better assessed on pelvic ultrasound April 17, 2021. There is extensive colonic diverticulosis. Note is made of moderate wall thickening of the proximal sigmoid colon which has increased in degree since prior CT of April 14, 2021. Adjacent infiltration is noted. There is an associated 2.6 cm fluid and gas containing focus along the sigmoid colon on image 300. This was shown on prior exam but was predominantly gas-filled. Findings represent acute diverticulitis. This inflammation is immediately adjacent to the left ovary. Small ventral hernia contains a portion of small bowel. There is no bowel obstruction. Major vasculature is patent. IMPRESSION: Progression of findings consistent with acute sigmoid diverticulitis since CT of April 14, 2021. Sigmoid colon wall thickening with pericolonic infiltration and a 2.6 cm fluid and gas containing focus along the sigmoid colon which could reflect a diverticulum or small diverticular abscess. Inflammatory process adjacent to the left ovary, as before. A colonoscopy once symptoms resolve is recommended to exclude the less likely possibility of an underlying mass. ACT 112: Negative or not required by law. Electronically signed by: Shadi Ravi M.D. 05/05/2021 4:57 PM Code Status & VTE Plan Code Status Patient is a full code as per my discussion with her. VTE Prophylaxis Plan VTE Prophylaxis will be ordered: Yes Supervising Physician Co-Signing Physician Notes I have seen and examined the patient and have discussed the case with the provider above. I agree with the assessment and plan as stated. 80 yo F with multiple chronic comorbidities which appear compensated presents with acute left sided abdominal pain. Found to have a complicated diverticulitis recently seen to be infected during a recent admission. She is reporting pain and asking for her chronic [place] which she uses chronically. Vitals are stable and she is afebrile. WBC mildly elevated at 13K. Physical exam reveals a ND soft abdomen with TTP in the LUQ and LLQ. Sugery recommends bowel rest and antibiotics. Proceed with Himanshu. Kel,
[2021-05-05] MEDS ORDERED: CARBOHYDRATES FOR HYPOGLYCEMIA PO PRN (20:08)
[2021-05-05] MEDS ORDERED: GLUCOSE 40% GEL 15 GM TUBE PO PRN (20:08)
[2021-05-05] MEDS ORDERED: ACETAMINOPHEN 325 MG TAB PO PRN (20:08)
[2021-05-05] MEDS ORDERED: GLUCAGON FOR INJ 1 MG VIAL SQ PRN (20:08)
[2021-05-05] MEDS ORDERED: DEXTROSE 50% 50 ML SYRINGE IV PRN (20:08)
[2021-05-05] MEDS: GLUCOSE 10 TABS/TUBE PO PRN (20:51)
[2021-05-05] MEDS ORDERED: IPRATROPIUM BROMIDE/ALBUTEROL respimat INH INH SCH (21:00)
[2021-05-05] MEDS ORDERED: INSULIN ASPART 100 UNITS/ML 3 ML PEN SC SCH (21:00)
[2021-05-05] MEDS: HEPARIN SOD 5,000 UNIT/0.5 ML VIAL SQ SCH (21:07)
[2021-05-05] MEDS: BIMATOPROST 0.01% OP SOLN 2.5 ML BTL OP SCH (21:13)
[2021-05-05] MEDS: BRINZOLAMIDE (AZOPT) OPS 10 ML BTL OPB SCH (21:13)
[2021-05-05] MEDS: ATORVASTATIN 40 MG TAB PO SCH (21:14)
[2021-05-05] MEDS: PANTOprazole 40 MG TAB PO SCH (21:15)
[2021-05-05] MEDS: PIPERACILLIN/TAZOBACTAM 4.5 GM in DEXTROSE 5% 100 ML IV SCH (21:15)
[2021-05-05] MEDS ORDERED: Nursing to Pharmacy Communication SCH (21:24)
[2021-05-05] MEDS: D5W AND NSS 1,000 ML IV SCH (21:31)
[2021-05-05] MEDS: HYDROCODONE/ACETAMOPHEN 5/325MG TAB PO PRN (21:54)
[2021-05-05] MEDS: INSULIN ASPART 100 UNITS/ML 3 ML PEN SC SCH (23:50)
--- NOTE | 2021-05-06 05:25 | Surgery Progress Note ---
Date of Service May 06, 2021 Assessment & Plan (1) Diverticulitis: Plan: Patient has been admitted by the hospital service continue the following plan: Hydration with IV fluids provide analgesics provide antiemetics keep patient n.p.o. for bowel rest for at least another 24 hours. Consideration may be given to advancing diet if clinical improvement is noted. continue antibiotics in the form of Zosyn Dr. Ariza-patient's vital signs are stable she appears to be comfortable She is oxygen in place for her history of shortness of breath and congestive heart failure Continue n.p.o. with ice only today possible clear liquids tomorrow IV antibiotics to continue Try to mobilize patient if possible Admission and Anticipated Discharge Date Admission Date: May 05, 2021 Subjective Patient notes some improvement of her abdominal pain since admission. She denies any fevers, shakes, chills. She has not had a bowel movement since surge ry. She denies any nausea or vomiting. Physical Exam Gastrointestinal (Abdomen): Abdomen is soft and nondistended with positive bowel sounds. There is no rebound tenderness or guarding but patient does have pain with palpation greatest in the left lower quadrant. Results & Data ([facility]) Vital Signs (Past 12 Hours) Vital Signs Temp Pulse Pulse Resp BP Pulse Ox 05/05/21 23:44 36.9 C 83 16 132/76 98 05/05/21 20:16 36.5 C 95 H 18 119/89 93 05/05/21 18:50 82 19 107/77 98 05/05/21 18:00 91 H 18 110/64 99 PG Care Time/CCT Total # of Minutes Spent Total Time Spent with Patient: Total time spent is greater than 50% in coordination of care (as documented) at patient's floor/unit and/or counseling patient: Coding Level of Care Code 02869 Subseq Hosp Care Lvl 1 Diagnoses Diverticulitis K57.92
[2021-05-06] MEDS: PIPERACILLIN/TAZOBACTAM 4.5 GM in DEXTROSE 5% 100 ML IV SCH ×3 (05:33→22:10)
[2021-05-06] MEDS: HEPARIN SOD 5,000 UNIT/0.5 ML VIAL SQ SCH ×3 (05:34→22:12)
[2021-05-06] MEDS: GLUCOSE 10 TABS/TUBE PO PRN ×3 (05:45→20:57)
[2021-05-06] MEDS: INSULIN ASPART 100 UNITS/ML 3 ML PEN SC SCH ×3 (05:47→18:35)
[2021-05-06] MEDS: HYDROCODONE/ACETAMOPHEN 5/325MG TAB PO PRN ×3 (06:29→20:06)
[2021-05-06] MEDS: Ipratropium HFA Inhaler (Combivent Respimat P&T Subs) INH SCH ×4 (07:43→18:56)
[2021-05-06] MEDS: Albuterol HFA 8 GM Inhaler (Combivent Respimat P&T Subs) INH SCH ×4 (07:44→18:56)
[2021-05-06 08:06] LABS: Hematocrit (blood only) 31.9 % (37-47); Hemoglobin 9.6 g/dL (12.0-16.0); Mean Corpuscular Hemoglobin 28.1 pg (25-34); Mean Corpuscular Hgb Conc 30.1 g/dL (32-36); Mean Corpuscular Volume 93.3 fL (80-100); Mean Platelet Volume 9.4 fL (7.4-10.4); Platelet Count 327 K/uL (130-400); RDW Coefficient of Variation 14.8 % (11.5-14.5); RDW Standard Deviation 50.8 fL (36.4-46.3); Red Blood Count 3.42 M/uL (4.2-5.4); White Blood Count 7.48 K/uL (4.8-10.8)
[2021-05-06] MEDS: FLUTICASONE/VILANTEROL 100/25MCG 14 PUFFS/INHALER INH SCH (08:18)
[2021-05-06] MEDS: BRINZOLAMIDE (AZOPT) OPS 10 ML BTL OPB SCH ×2 (08:18→20:07)
[2021-05-06] MEDS: ASPIRIN 81 MG ECTAB PO SCH (08:19)
[2021-05-06] MEDS: methIMAzole 5 MG TABLET PO SCH (08:19)
[2021-05-06] MEDS: CHOLECALCIFEROL 1,000 UNITS 25 MCG TAB PO SCH (08:20)
[2021-05-06] MEDS: lisinopril 2.5 MG TAB PO SCH (08:21)
[2021-05-06] MEDS: FERROUS SULFATE 325 MG TAB PO SCH (08:21)
[2021-05-06] MEDS: FLUDROCORTISONE ACETATE 0.1 MG TAB PO SCH (08:21)
[2021-05-06] MEDS: POTASSIUM CHLORIDE CRTAB 20 MEQ TABCR PO SCH (08:22)
[2021-05-06] MEDS: FUROSEMIDE 40 MG TAB PO SCH (08:22)
[2021-05-06] MEDS: PANTOprazole 40 MG TAB PO SCH ×2 (08:22→20:06)
[2021-05-06 08:23] LABS: BUN Creatinine Ratio 12.2 (10-20); Calcium 8.8 mg/dl (8.5-10.1); Creatinine Clr Calc Pharmacy 53.7 ml/min; Est GFR (Non-African American) 51.8 ml/min; Potassium 3.8 mmol/L (3.5-5.1)
[2021-05-06] MEDS: D5W AND NSS 1,000 ML IV SCH (08:28)
--- NOTE | 2021-05-06 09:28 | Hospitalist Progress Note ---
Date of Service May 06, 2021 Assessment & Plan (1) Acute diverticulitis: (2) Colonic diverticular abscess: Plan: Recently received 10 days Invanz during recent hospitalization. Now doing well on Zosyn. Pain still present. Maintain bowel rest. ID consult. If procedure needed, would like colorectal opinion and likely transfer. (3) Chronic HFrEF (heart failure with reduced ejection fraction): Plan: chronic, some KULKARNI with IVF overnight. Stopping IVf now and cont home Lasix (4) Adrenal insufficiency: Plan: -Diagnosed during recent admission -Discharged on hydrocortisone and fludrocortisone -Patient reports that daughter received instructions from endocrine Dr. Voss for hydrocortisone taper, which completed prior to arrival -Continue fludrocortisone -Follow-up as an outpatient with endocrine (5) Chronic atrial fibrillation: Plan: -Digoxin and carvedilol discontinued during recent admission due to bradycardia -Heart rate currently controlled -Has watchman device in place (6) Diabetes mellitus, type 2: Plan: -Hgb A1c 7.1 03/2021 -Hold oral agents and utilize NovoLog per protocol while hospitalized -patient feels "lows" when glucose is <100. Removed carb coverage (noted on bowel rest) and loosened correction factor. -A1C reflects good control . (7) COPD (chronic obstructive pulmonary disease): Plan: -No signs of acute exacerbation, continue home inhalers (8) Subclinical hyperthyroidism: Plan: -Continue methimazole (9) DVT prophylaxis: Plan: -SQ heparin Full Code-confirmed with her on recent admission Dispo-uncertain, pending response to IV antibiotics. Ruby Begum DO [facility] Hospitalist Admission and Anticipated Discharge Date Admission Date: May 05, 2021 Subjective 80 yo F admitted for complicated diverticulitis Recently admitted and treated for approx 10 days with Invanz for left sided diverticulitis in the same area. Discussed with surgery-colorectal surgery opinion would need to beb sought prior to an intervention and she would need a transfer if intervention were thought necessary. Patient is also not interested in surgery at this time. Infectious disease consult placed. Afebrile Still with left sided abdominal pain Hypoglycemic feeling with glucose in the 80s--> patient states any glucose <100 makes her symptomatic. Received dextrose overnight but then reports KULKARNI when walking to the bathroom. Denies chest pain Review of Systems Review of Systems: All systems were reviewed and negative except as indicated in HPI above. Physical Exam Physical Exam: CONSTITUTIONAL: obese, vitals as above, generally well- appearing EYES: normal conjunctivae, no scleral icterus ENT: external ear and nose normal, MMM RESPIRATORY: clear to auscultation bilaterally, no crackles, rales or wheezes, normal respiratory effort CARDIOVASCULAR: irregular rate and rhythm, S1 and 2 heard without murmurs, gallops or rubs, no JVD, no peripheral edema GASTROINTESTINAL: soft, nontender, nondistended, no guarding MUSCULOSKELETAL: strength 5/5 throughout, head is normocephalic and atraumatic SKIN: warm and dry NEUROLOGIC: No facial palsy, no dysarthria. CN 2-12 grossly intact, no sensory deficit, normal cognition, normal speech PSYCHIATRIC: alert cooperative and oriented to person, place and time. Results & Data Results & Data ([facility]) Vital Signs (Past 12 Hours) Vital Signs Temp Pulse Resp BP Pulse Ox 05/06/21 07:44 66 16 96 05/06/21 07:32 36.4 C L 71 16 100/66 94 05/05/21 23:44 36.9 C 83 16 132/76 98 Laboratory Results Short CBC 05/05/21 05/06/21 Range/Units 14:20 07:47 WBC 13.76 H 7.48 (4.8-10.8) K/uL Hgb 12.0 9.6 L (12.0-16.0) g/dL Hct 38.7 31.9 L (37-47) % Plt Count 415 H 327 (130-400) K/uL BMP 05/05/21 05/06/21 14:20 07:47 Sodium 139 141 Potassium 4.1 3.8 Chloride 105 108 H Carbon Dioxide 35 H 30 BUN 16 12 Creatinine 1.14 1.01 Glucose 142 H 116 H Calcium 9.6 8.8 Liver Function 05/05/21 Range/Units 14:20 Total Bilirubin 0.3 (0.2-1) mg/dl AST 10 L (15-37) U/L ALT 18 (12-78) U/L Alkaline Phosphatase 154 H (45-117) U/L Albumin 3.4 (3.4-5.0) gm/dl Urine 05/05/21 Range/Units 14:23 Urine Color Yellow Urine Appearance Clear (Clear) Urine pH 6.0 (4.5-7.5) Ur Specific Floral 1.010 (1.000-1.030) Urine Protein Negative (Negative) Urine Glucose (UA) Negative (Negative) Medications Administered Current Inpatient Medications Acetaminophen (Acetaminophen 325 Mg Tab) 650 mg PO Q4H PRN PRN Reason: pain/fever Stop: 06/04/21 20:07 Hydrocodone Bitart/Acetaminophen (Hydrocodone/Acetamophen 5/325mg Tab) 1 tab PO Q6H PRN PRN Reason: Pain Stop: 05/19/21 20:07 Last Admin: 05/06/21 06:29 Dose: 1 tab Documented by: Albuterol (Albuterol Hfa 8 Gm Inhaler (Combivent Respimat P&T Subs)) 1 puffs INH QIDR ANDREA Stop: 06/05/21 06:59 Last Admin: 05/06/21 07:44 Dose: 1 puffs Documented by: Aspirin (Aspirin 81 Mg Ectab) 81 mg PO DAILY ANDREA Stop: 06/05/21 08:59 Last Admin: 05/06/21 08:19 Dose: 81 mg Documented by: Atorvastatin Calcium (Atorvastatin 40 Mg Tab) 40 mg PO HS ANDREA Stop: 06/04/21 20:59 Last Admin: 05/05/21 21:14 Dose: 40 mg Documented by: Bimatoprost (Bimatoprost 0.01% Op Soln 2.5 Ml Btl) 1 drops OP HS ANDREA Stop: 06/04/21 20:59 Last Admin: 05/05/21 21:13 Dose: 1 drops Documented by: Brinzolamide (Brinzolamide (Azopt) Ops 10 Ml Btl) 1 drops OPB BID ANDREA Stop: 06/04/21 20:59 Last Admin: 05/06/21 08:18 Dose: 1 drops Documented by: Dextrose (Dextrose 50% 50 Ml Syringe) 25 - 50 ml IV UD PRN; Protocol PRN Reason: Hypoglycemia Protocol Stop: 06/04/21 20:07 Last Admin: 05/05/21 21:29 Dose: 25 ml Documented by: Ferrous Sulfate (Ferrous Sulfate 325 Mg Tab) 325 mg PO QAM ANDREA Stop: 06/05/21 08:59 Last Admin: 05/06/21 08:21 Dose: 325 mg Documented by: Fludrocortisone Acetate (Fludrocortisone Acetate 0.1 Mg Tab) 0.1 mg PO QAM [facility] Stop: 06/05/21 08:59 Last Admin: 05/06/21 08:21 Dose: 0.1 mg Documented by: Fluticasone/Vilanterol (Fluticasone/Vilanterol 100/25mcg 14 Puffs/Inhaler) 1 puffs INH DAILY [facility] Stop: 06/05/21 08:59 Last Admin: 05/06/21 08:18 Dose: 1 puffs Documented by: Furosemide (Furosemide 40 Mg Tab) 40 mg PO QAM [facility] Stop: 06/05/21 08:59 Last Admin: 05/06/21 08:22 Dose: 40 mg Documented by: Glucagon (Glucagon For Inj 1 Mg Vial) 1 mg SQ UD PRN; Protocol PRN Reason: Hypoglycemia Protocol Stop: 06/04/21 20:07 Glucose (Glucose 10 Tabs/Tube) 4 - 8 tabs PO UD PRN; Protocol PRN Reason: Hypoglycemia Protocol Stop: 06/04/21 20:07 Last Admin: 05/06/21 05:45 Dose: 4 tabs Documented by: Glucose (Glucose 40% Gel 15 Gm Tube) 15 - 30 gm PO UD PRN; Protocol PRN Reason: Hypoglycemia Protocol Stop: 06/04/21 20:07 Heparin Sodium (Porcine) (Heparin Sod 5,000 Unit/0.5 Ml Vial) 5,000 units SQ Q8 [facility] Stop: 06/04/21 21:59 Last Admin: 05/06/21 05:34 Dose: Not Given Documented by: Piperacillin Sod/Tazobactam (Sod 4.5 gm/ Dextrose) 120 mls @ 30 mls/hr IV Q8H [facility]; Protocol Stop: 05/15/21 21:59 Last Admin: 05/06/21 05:33 Dose: 30 mls/hr Documented by: Furosemide 20 mg/ Syringe 2 mls @ 4 mls/min IV ONE ONE Stop: 05/06/21 14:01 Insulin Aspart (Insulin Aspart 100 Units/Ml 3 Ml Pen) 0 units SC Q6 [facility] Stop: 06/05/21 00:00 Last Admin: 05/06/21 05:47 Dose: Not Given Documented by: Ipratropium [place] (Ipratropium Hfa Inhaler (Combivent Respimat P&T Subs)) 1 puffs INH QIDR [facility] Stop: 06/05/21 06:59 Last Admin: 05/06/21 07:43 Dose: 1 puffs Documented by: Lisinopril (Lisinopril 2.5 Mg Tab) 2.5 mg PO DAILY [facility] Stop: 06/05/21 08:59 Last Admin: 05/06/21 08:21 Dose: 2.5 mg Documented by: Methimazole (Methimazole 5 Mg Tablet) 10 mg PO DAILY [facility]REA Stop: 06/05/21 08:59 Last Admin: 05/06/21 08:19 Dose: 10 mg Documented by: Miscellaneous (Carbohydrates For Hypoglycemia ) 15 - 30 gm PO UD PRN PRN Reason: Hypoglycemia Protocol Stop: 06/04/21 20:07 Miscellaneous Information (Piperacill/Tazobac Consult Active) 1 ea N/A UD PRN PRN Reason: Consult Stop: 06/04/21 20:07 Ondansetron HCl (Ondansetron Inj 2 Mg/Ml 2 Ml Vial) 4 mg IV Q6H PRN PRN Reason: nausea Stop: 06/04/21 17:59 Pantoprazole Sodium (Pantoprazole 40 Mg Tab) 40 mg PO BID ANDREA Stop: 06/04/21 20:59 Last Admin: 05/06/21 08:22 Dose: 40 mg Documented by: Potassium Chloride (Potassium Chloride Crtab 20 Meq Tabcr) 20 meq PO DAILY [facility]RE[facility] Stop: 06/05/21 08:59 Last Admin: 05/06/21 08:22 Dose: 20 meq Documented by: Promethazine HCl (Promethazine Hcl 25 Mg Tab) 25 mg PO Q6H PRN PRN Reason: nausea and vomiting Stop: 06/04/21 20:07 Vitamin D (Cholecalciferol 1,000 Units 25 Mcg Tab) 1,000 units PO QAM [facility] Stop: 06/05/21 08:59 Last Admin: 05/06/21 08:20 Dose: 1,000 units Documented by:
[2021-05-06] MEDS ORDERED: FUROSEMIDE 20 MG in SYRINGE 0 ML IV ONE (14:00)
[2021-05-06] MEDS: ATORVASTATIN 40 MG TAB PO SCH (20:06)
[2021-05-06] MEDS: BIMATOPROST 0.01% OP SOLN 2.5 ML BTL OP SCH (20:07)
[2021-05-07] MEDS: INSULIN ASPART 100 UNITS/ML 3 ML PEN SC SCH ×5 (00:24→21:26)
[2021-05-07] MEDS: HEPARIN SOD 5,000 UNIT/0.5 ML VIAL SQ SCH ×3 (06:11→23:13)
[2021-05-07] MEDS: PIPERACILLIN/TAZOBACTAM 4.5 GM in DEXTROSE 5% 100 ML IV SCH ×3 (06:11→21:22)
[2021-05-07] MEDS: GLUCOSE 10 TABS/TUBE PO PRN (06:12)
[2021-05-07 06:49] LABS: Hematocrit (blood only) 36.6 % (37-47); Hemoglobin 11.1 g/dL (12.0-16.0); Mean Corpuscular Hemoglobin 28.6 pg (25-34); Mean Corpuscular Hgb Conc 30.3 g/dL (32-36); Mean Corpuscular Volume 94.3 fL (80-100); Mean Platelet Volume 9.7 fL (7.4-10.4); Platelet Count 388 K/uL (130-400); RDW Coefficient of Variation 14.6 % (11.5-14.5); RDW Standard Deviation 50.1 fL (36.4-46.3); Red Blood Count 3.88 M/uL (4.2-5.4); White Blood Count 8.82 K/uL (4.8-10.8)
[2021-05-07 07:27] LABS: BUN Creatinine Ratio 10.1 (10-20); Calcium 8.9 mg/dl (8.5-10.1); Creatinine Clr Calc Pharmacy 53.2 ml/min; Est GFR (African American) 59.3 ml/min; Est GFR (Non-African American) 51.2 ml/min; Potassium 3.6 mmol/L (3.5-5.1)
[2021-05-07] MEDS: Ipratropium HFA Inhaler (Combivent Respimat P&T Subs) INH SCH ×4 (07:30→19:11)
[2021-05-07] MEDS: Albuterol HFA 8 GM Inhaler (Combivent Respimat P&T Subs) INH SCH ×4 (07:31→19:11)
[2021-05-07] MEDS ORDERED: Nursing to Pharmacy Communication SCH (08:15)
--- NOTE | 2021-05-07 08:23 | Surgery Progress Note ---
Date of Service May 07, 2021 Assessment & Plan (1) Colonic diverticular abscess: Plan: improving WBC 8 will start on clears Dr. Ariza-patient having some pain but appears to be stable ID consult pending Continue IV antibiotics Begin clear liquids Admission and Anticipated Discharge Date Admission Date: May 05, 2021 Subjective BM yesterday, less pain, no fever/chills Physical Exam Gastrointestinal (Abdomen): Inspection/Auscultation: abdomen not distended Percussion/Palpation: + abdomen tender (mild LLQ) and abdomen soft; no guarding Results & Data ([facility]) Vital Signs (Past 12 Hours) Vital Signs Temp Pulse Resp BP Pulse Ox 05/07/21 07:32 84 20 97 05/07/21 07:29 36.5 C 87 18 116/74 97 05/06/21 21:51 36.6 C 65 18 103/67 95 PG Care Time/CCT Total # of Minutes Spent Total Time Spent with Patient: Total time spent is greater than 50% in coordination of care (as documented) at patient's floor/unit and/or counseling patient: Coding Level of Care Code 42146 Subseq Hosp Care Lvl 1 Diagnoses Colonic diverticular abscess K57.20
[2021-05-07] MEDS: CHOLECALCIFEROL 1,000 UNITS 25 MCG TAB PO SCH (09:15)
[2021-05-07] MEDS: POTASSIUM CHLORIDE CRTAB 20 MEQ TABCR PO SCH (09:15)
[2021-05-07] MEDS: methIMAzole 5 MG TABLET PO SCH (09:16)
[2021-05-07] MEDS: FLUDROCORTISONE ACETATE 0.1 MG TAB PO SCH (09:16)
[2021-05-07] MEDS: FUROSEMIDE 40 MG TAB PO SCH (09:16)
[2021-05-07] MEDS: PANTOprazole 40 MG TAB PO SCH ×2 (09:16→21:13)
[2021-05-07] MEDS: FERROUS SULFATE 325 MG TAB PO SCH (09:16)
[2021-05-07] MEDS: FLUTICASONE/VILANTEROL 100/25MCG 14 PUFFS/INHALER INH SCH (09:17)
[2021-05-07] MEDS: lisinopril 2.5 MG TAB PO SCH (09:17)
[2021-05-07] MEDS: ASPIRIN 81 MG ECTAB PO SCH (09:17)
[2021-05-07] MEDS: BRINZOLAMIDE (AZOPT) OPS 10 ML BTL OPB SCH ×2 (09:18→21:15)
[2021-05-07] MEDS ORDERED: ONDANSETRON INJ 2 MG/ML 2 ML VIAL IV STA (09:50)
[2021-05-07] MEDS: HYDROCODONE/ACETAMOPHEN 5/325MG TAB PO PRN ×2 (13:21→21:13)
--- NOTE | 2021-05-07 14:56 | Hospitalist Progress Note ---
Date of Service May 07, 2021 Assessment & Plan (1) Acute diverticulitis: (2) Colonic diverticular abscess: Plan: Recently received 10 days Invanz during recent hospitalization. Now doing well on Zosyn. Pain still present. Started eating this morning with some post- prandial nausea. ID consult. If procedure needed, would like colorectal opinion and likely transfer. (3) Chronic HFrEF (heart failure with reduced ejection fraction): Plan: chronic, denies dyspnea with exertion. Cont home Lasix to keep I/Os balanced with known chronic heart issues. (4) Adrenal insufficiency: Plan: -Diagnosed during recent admission -Discharged on hydrocortisone and fludrocortisone -Patient reports that daughter received instructions from endocrine Dr. Voss for hydrocortisone taper, which completed prior to arrival -Continue fludrocortisone -Follow-up as an outpatient with endocrine (5) Chronic atrial fibrillation: Plan: -Digoxin and carvedilol discontinued during recent admission due to bradycardia -Heart rate currently controlled -Has watchman device in place (6) Diabetes mellitus, type 2: Plan: -Hgb A1c 7.1 03/2021 -Hold oral agents and utilize NovoLog per protocol while hospitalized -patient feels "lows" when glucose is <100. Removed carb coverage and loosened correction factor. -A1C reflects good control . (7) COPD (chronic obstructive pulmonary disease): Plan: -No signs of acute exacerbation, continue home inhalers (8) Subclinical hyperthyroidism: Plan: -Continue methimazole (9) DVT prophylaxis: Plan: -SQ heparin Full Code-confirmed with her on recent admission Dispo-uncertain, pending response to IV antibiotics. Ruby Begum DO [facility] Hospitalist Admission and Anticipated Discharge Date Admission Date: May 05, 2021 Subjective 80 yo F admitted for complicated diverticulitis some post-prandial nausea after starting clears she thinks it was related to hospital coffee ambulating without distress or SOB denies worsening pain but still has left sided abdominal pain present. Review of Systems Review of Systems: All systems were reviewed and negative except as indicated in HPI above. Physical Exam Physical Exam: CONSTITUTIONAL: obese, vitals as above, ill-appearing EYES: normal conjunctivae, no scleral icterus ENT: external ear and nose normal, MMM RESPIRATORY: clear to auscultation bilaterally, no crackles, rales or wheezes, normal respiratory effort CARDIOVASCULAR: irregular rate and rhythm, S1 and 2 heard without murmurs, gallops or rubs, no JVD, no peripheral edema GASTROINTESTINAL: soft, nontender, nondistended, no guarding MUSCULOSKELETAL: strength 5/5 throughout, head is normocephalic and atraumatic SKIN: warm and dry NEUROLOGIC: No facial palsy, no dysarthria. CN 2-12 grossly intact, no sensory deficit, normal cognition, normal speech PSYCHIATRIC: alert cooperative and oriented to person, place and time. Results & Data Results & Data ([facility]) Vital Signs (Past 12 Hours) Vital Signs Temp Pulse Resp BP Pulse Ox 05/07/21 11:23 80 18 97 05/07/21 07:32 84 20 97 05/07/21 07:29 36.5 C 87 18 116/74 97 Laboratory Results Short CBC 05/07/21 Range/Units 06:18 WBC 8.82 (4.8-10.8) K/uL Hgb 11.1 L (12.0-16.0) g/dL Hct 36.6 L (37-47) % Plt Count 388 (130-400) K/uL BMP 05/07/21 06:18 Sodium 139 Potassium 3.6 Chloride 104 Carbon Dioxide 33 H BUN 10 Creatinine 1.02 Glucose 83 Calcium 8.9 Medications Administered Current Inpatient Medications Acetaminophen (Acetaminophen 325 Mg Tab) 650 mg PO Q4H PRN PRN Reason: pain/fever Stop: 06/04/21 20:07 Hydrocodone Bitart/Acetaminophen (Hydrocodone/Acetamophen 5/325mg Tab) 1 tab PO Q6H PRN PRN Reason: Pain Stop: 05/19/21 20:07 Last Admin: 05/07/21 13:21 Dose: 1 tab Documented by: Albuterol (Albuterol Hfa 8 Gm Inhaler (Combivent Respimat P&T Subs)) 1 puffs INH QIDR ANDREA Stop: 06/05/21 06:59 Last Admin: 05/07/21 11:22 Dose: 1 puffs Documented by: Aspirin (Aspirin 81 Mg Ectab) 81 mg PO DAILY ANDRE[facility] Stop: 06/05/21 08:59 Last Admin: 05/07/21 09:17 Dose: 81 mg Documented by: Atorvastatin Calcium (Atorvastatin 40 Mg Tab) 40 mg PO HS ANDREA Stop: 06/04/21 20:59 Last Admin: 05/06/21 20:06 Dose: 40 mg Documented by: Bimatoprost (Bimatoprost 0.01% Op Soln 2.5 Ml Btl) 1 drops OP HS [facility] Stop: 06/04/21 20:59 Last Admin: 05/06/21 20:07 Dose: 1 drops Documented by: Brinzolamide (Brinzolamide (Azopt) Ops 10 Ml Btl) 1 drops OPB BID NAD[facility] Stop: 06/04/21 20:59 Last Admin: 05/07/21 09:18 Dose: 1 drops Documented by: Dextrose (Dextrose 50% 50 Ml Syringe) 25 - 50 ml IV UD PRN; Protocol PRN Reason: Hypoglycemia Protocol Stop: 06/04/21 20:07 Last Admin: 05/05/21 21:29 Dose: 25 ml Documented by: Ferrous Sulfate (Ferrous Sulfate 325 Mg Tab) 325 mg PO QAM [facility] Stop: 06/05/21 08:59 Last Admin: 05/07/21 09:16 Dose: 325 mg Documented by: Fludrocortisone Acetate (Fludrocortisone Acetate 0.1 Mg Tab) 0.1 mg PO QAM [facility] Stop: 06/05/21 08:59 Last Admin: 05/07/21 09:16 Dose: 0.1 mg Documented by: Fluticasone/Vilanterol (Fluticasone/Vilanterol 100/25mcg 14 Puffs/Inhaler) 1 puffs INH DAILY [facility] Stop: 06/05/21 08:59 Last Admin: 05/07/21 09:17 Dose: 1 puffs Documented by: Furosemide (Furosemide 40 Mg Tab) 40 mg PO QAM [facility] Stop: 06/05/21 08:59 Last Admin: 05/07/21 09:16 Dose: 40 mg Documented by: Glucagon (Glucagon For Inj 1 Mg Vial) 1 mg SQ UD PRN; Protocol PRN Reason: Hypoglycemia Protocol Stop: 06/04/21 20:07 Glucose (Glucose 10 Tabs/Tube) 4 - 8 tabs PO UD PRN; Protocol PRN Reason: Hypoglycemia Protocol Stop: 06/04/21 20:07 Last Admin: 05/07/21 06:12 Dose: 4 tabs Documented by: Glucose (Glucose 40% Gel 15 Gm Tube) 15 - 30 gm PO UD PRN; Protocol PRN Reason: Hypoglycemia Protocol Stop: 06/04/21 20:07 Heparin Sodium (Porcine) (Heparin Sod 5,000 Unit/0.5 Ml Vial) 5,000 units SQ Q8 [facility] Stop: 06/04/21 21:59 Last Admin: 05/07/21 13:22 Dose: Not Given Documented by: Piperacillin Sod/Tazobactam (Sod 4.5 gm/ Dextrose) 120 mls @ 30 mls/hr IV Q8H [facility]; Protocol Stop: 05/15/21 21:59 Last Admin: 05/07/21 13:22 Dose: 30 mls/hr Documented by: Insulin Aspart (Insulin Aspart 100 Units/Ml 3 Ml Pen) 0 units SC ACHS [facility] Stop: 06/06/21 11:29 Last Admin: 05/07/21 12:49 Dose: Not Given Documented by: Ipratropium [place] (Ipratropium Hfa Inhaler (Combivent Respimat P&T Subs)) 1 puffs INH QIDR [facility] Stop: 06/05/21 06:59 Last Admin: 05/07/21 11:22 Dose: 1 puffs Documented by: Lisinopril (Lisinopril 2.5 Mg Tab) 2.5 mg PO DAILY [facility] Stop: 06/05/21 08:59 Last Admin: 05/07/21 09:17 Dose: 2.5 mg Documented by: Methimazole (Methimazole 5 Mg Tablet) 10 mg PO DAILY [facility] Stop: 06/05/21 08:59 Last Admin: 05/07/21 09:16 Dose: 10 mg Documented by: Miscellaneous (Carbohydrates For Hypoglycemia ) 15 - 30 gm PO UD PRN PRN Reason: Hypoglycemia Protocol Stop: 06/04/21 20:07 Miscellaneous Information (Piperacill/Tazobac Consult Active) 1 ea N/A UD PRN PRN Reason: Consult Stop: 06/04/21 20:07 Ondansetron HCl (Ondansetron Inj 2 Mg/Ml 2 Ml Vial) 4 mg IV Q6H PRN PRN Reason: nausea Stop: 06/04/21 17:59 Pantoprazole Sodium (Pantoprazole 40 Mg Tab) 40 mg PO BID [facility] Stop: 06/04/21 20:59 Last Admin: 05/07/21 09:16 Dose: 40 mg Documented by: Potassium Chloride (Potassium Chloride Crtab 20 Meq Tabcr) 20 meq PO DAILY [facility] Stop: 06/05/21 08:59 Last Admin: 05/07/21 09:15 Dose: 20 meq Documented by: Promethazine HCl (Promethazine Hcl 25 Mg Tab) 25 mg PO Q6H PRN PRN Reason: nausea and vomiting Stop: 06/04/21 20:07 Vitamin D (Cholecalciferol 1,000 Units 25 Mcg Tab) 1,000 units PO QAM [facility] Stop: 06/05/21 08:59 Last Admin: 05/07/21 09:15 Dose: 1,000 units Documented by:
[2021-05-07] MEDS: ONDANSETRON INJ 2 MG/ML 2 ML VIAL IV PRN (21:11)
[2021-05-07] MEDS: ATORVASTATIN 40 MG TAB PO SCH (21:13)
[2021-05-07] MEDS: BIMATOPROST 0.01% OP SOLN 2.5 ML BTL OP SCH (21:14)
[2021-05-08] MEDS: PIPERACILLIN/TAZOBACTAM 4.5 GM in DEXTROSE 5% 100 ML IV SCH ×3 (05:49→22:07)
[2021-05-08] MEDS: HEPARIN SOD 5,000 UNIT/0.5 ML VIAL SQ SCH ×3 (05:49→21:06)
[2021-05-08] MEDS: Ipratropium HFA Inhaler (Combivent Respimat P&T Subs) INH SCH ×4 (07:43→19:26)
[2021-05-08] MEDS: Albuterol HFA 8 GM Inhaler (Combivent Respimat P&T Subs) INH SCH ×4 (07:43→19:26)
[2021-05-08] MEDS: INSULIN ASPART 100 UNITS/ML 3 ML PEN SC SCH ×4 (08:28→21:18)
[2021-05-08] MEDS: lisinopril 2.5 MG TAB PO SCH (08:29)
[2021-05-08] MEDS: FLUDROCORTISONE ACETATE 0.1 MG TAB PO SCH (08:29)
[2021-05-08] MEDS: PANTOprazole 40 MG TAB PO SCH ×2 (08:29→21:05)
[2021-05-08] MEDS: CHOLECALCIFEROL 1,000 UNITS 25 MCG TAB PO SCH (08:29)
[2021-05-08] MEDS: POTASSIUM CHLORIDE CRTAB 20 MEQ TABCR PO SCH (08:30)
[2021-05-08] MEDS: ASPIRIN 81 MG ECTAB PO SCH (08:30)
[2021-05-08] MEDS: methIMAzole 5 MG TABLET PO SCH (08:30)
[2021-05-08] MEDS: FUROSEMIDE 40 MG TAB PO SCH (08:30)
[2021-05-08] MEDS: FERROUS SULFATE 325 MG TAB PO SCH (08:30)
[2021-05-08] MEDS: BRINZOLAMIDE (AZOPT) OPS 10 ML BTL OPB SCH ×2 (08:31→21:06)
[2021-05-08] MEDS: FLUTICASONE/VILANTEROL 100/25MCG 14 PUFFS/INHALER INH SCH (08:31)
[2021-05-08] MEDS: HYDROCODONE/ACETAMOPHEN 5/325MG TAB PO PRN ×2 (08:31→21:07)
[2021-05-08] MEDS: ONDANSETRON INJ 2 MG/ML 2 ML VIAL IV PRN ×2 (08:34→22:07)
--- NOTE | 2021-05-08 10:17 | Surgery Progress Note ---
Date of Service May 08, 2021 Assessment & Plan (1) Colonic diverticular abscess: Plan: Patient appears to be stable Continue IV antibiotics Medical comorbidity places her at extreme risk for any surgery Would consider colorectal evaluation as an outpatient Admission and Anticipated Discharge Date Admission Date: May 05, 2021 Subjective Patient not complaining of significant abdominal pain More leg pain and back pain Tolerating some clear liquids On IV antibiotics Review of Systems 2 Review of Systems: All systems reviewed & are unremarkable except as noted in HPI & below Physical Exam Constitutional: + ill appearing; no acute distress Shortness of breath Eyes: + anicteric sclerae Respiratory: + labored breathing; no respiratory distress Cardiovascular: Rate/Rhythm: + irregularly irregular Skin: no rashes Psychiatric: Alert awake Results & Data ([facility]) Vital Signs (Past 12 Hours) Vital Signs Temp Pulse Resp BP Pulse Ox 05/08/21 07:47 36.4 C L 81 18 112/74 98 05/08/21 07:43 88 17 98 05/07/21 22:15 37.2 C 64 18 95/60 L 97 PG Care Time/CCT Total # of Minutes Spent Total Time Spent with Patient: Total time spent is greater than 50% in coordination of care (as documented) at patient's floor/unit and/or counseling patient: Coding Level of Care Code None Diagnoses Colonic diverticular abscess K57.20
--- NOTE | 2021-05-08 12:06 | Hospitalist Progress Note ---
Date of Service May 08, 2021 Assessment & Plan (1) Acute diverticulitis: (2) Colonic diverticular abscess: Plan: Recently received 10 days Invanz during recent hospitalization. Now doing well on Zosyn-monitor for new/worsening diarrhea. Pain still present but improving. Tolerating full liquids. ID consult. If procedure needed, would like colorectal opinion and likely transfer. (3) Chronic HFrEF (heart failure with reduced ejection fraction): Plan: chronic, denies dyspnea with exertion. Cont home Lasix to keep I/Os balanced with known chronic heart issues. (4) Adrenal insufficiency: Plan: -Diagnosed during recent admission -Discharged on hydrocortisone and fludrocortisone -Patient reports that daughter received instructions from endocrine Dr. Voss for hydrocortisone taper, which was completed prior to arrival -Continue fludrocortisone -Follow-up as an outpatient with endocrine (5) Chronic atrial fibrillation: Plan: -chronic issue, under control. -Digoxin and carvedilol discontinued during recent admission due to bradycardia -Heart rate currently controlled -Has watchman device in place (6) Diabetes mellitus, type 2: Plan: -Hgb A1c 7.1 03/2021 -Hold oral agents and utilize NovoLog per protocol while hospitalized -patient feels "lows" when glucose is <100. Removed carb coverage and loosened correction factor. -A1C reflects good control . (7) COPD (chronic obstructive pulmonary disease): Plan: -No signs of acute exacerbation, continue home inhalers (8) Subclinical hyperthyroidism: Plan: -Continue methimazole (9) DVT prophylaxis: Plan: -SQ heparin Full Code-confirmed with her on recent admission Dispo-uncertain, pending response to IV antibiotics. Awaiting ID recommendations. Ruby Begum DO [facility] Hospitalist Admission and Anticipated Discharge Date Admission Date: May 05, 2021 Subjective 80 yo F admitted for complicated diverticulitis Patient has chronic nausea from gasrtoparesis and takes Zofran at home-reports intermittent nausea that appears to be unrelated to current abdominal issue. reports two episodes of loose stool yesterdya and "a little bit" this morning-i advised her if she had any more to please let the nurse know out of concern for a developing infectious diarrhea-she verbalized understanding. She feels that her left sided abdominal pain is improving on current therapy afebrile now tolerating full liquids Review of Systems Review of Systems: All systems were reviewed and negative except as indicated in HPI above. Physical Exam Physical Exam: CONSTITUTIONAL: obese, vitals as above,NAD EYES: normal conjunctivae, no scleral icterus ENT: external ear and nose normal, MMM RESPIRATORY: clear to auscultation bilaterally, no crackles, rales or wheezes, normal respiratory effort CARDIOVASCULAR: irregular rate and rhythm, S1 and 2 heard without murmurs, gallops or rubs, no JVD, no peripheral edema GASTROINTESTINAL: soft, TTP to left abdomen (incorrectly documented yesterday as there was pain to palpation and this has improved on today's exam) nondistended, no guarding MUSCULOSKELETAL: strength 5/5 throughout, head is normocephalic and atraumatic SKIN: warm and dry NEUROLOGIC: No facial palsy, no dysarthria. CN 2-12 grossly intact, no sensory deficit, normal cognition, normal speech PSYCHIATRIC: alert cooperative and oriented to person, place and time. Results & Data Results & Data ([facility]) Vital Signs (Past 12 Hours) Vital Signs Temp Pulse Resp BP Pulse Ox 05/08/21 11:15 88 16 96 05/08/21 07:47 36.4 C L 81 18 112/74 98 05/08/21 07:43 88 17 98 Medications Administered Current Inpatient Medications Acetaminophen (Acetaminophen 325 Mg Tab) 650 mg PO Q4H PRN PRN Reason: pain/fever Stop: 06/04/21 20:07 Hydrocodone Bitart/Acetaminophen (Hydrocodone/Acetamophen 5/325mg Tab) 1 tab PO Q6H PRN PRN Reason: Pain Stop: 05/19/21 20:07 Last Admin: 05/08/21 08:31 Dose: 1 tab Documented by: Albuterol (Albuterol Hfa 8 Gm Inhaler (Combivent Respimat P&T Subs)) 1 puffs INH QIDR ANDREA Stop: 06/05/21 06:59 Last Admin: 05/08/21 11:12 Dose: 1 puffs Documented by: Aspirin (Aspirin 81 Mg Ectab) 81 mg PO DAILY ANDREA Stop: 06/05/21 08:59 Last Admin: 05/08/21 08:30 Dose: 81 mg Documented by: Atorvastatin Calcium (Atorvastatin 40 Mg Tab) 40 mg PO HS ANDREA Stop: 06/04/21 20:59 Last Admin: 05/07/21 21:13 Dose: 40 mg Documented by: Bimatoprost (Bimatoprost 0.01% Op Soln 2.5 Ml Btl) 1 drops OP HS [facility] Stop: 06/04/21 20:59 Last Admin: 05/07/21 21:14 Dose: 1 drops Documented by: Brinzolamide (Brinzolamide (Azopt) Ops 10 Ml Btl) 1 drops OPB BID [facility] Stop: 06/04/21 20:59 Last Admin: 05/08/21 08:31 Dose: 1 drops Documented by: Dextrose (Dextrose 50% 50 Ml Syringe) 25 - 50 ml IV UD PRN; Protocol PRN Reason: Hypoglycemia Protocol Stop: 06/04/21 20:07 Last Admin: 05/05/21 21:29 Dose: 25 ml Documented by: Ferrous Sulfate (Ferrous Sulfate 325 Mg Tab) 325 mg PO QAM [facility] Stop: 06/05/21 08:59 Last Admin: 05/08/21 08:30 Dose: 325 mg Documented by: Fludrocortisone Acetate (Fludrocortisone Acetate 0.1 Mg Tab) 0.1 mg PO QAM [facility] Stop: 06/05/21 08:59 Last Admin: 05/08/21 08:29 Dose: 0.1 mg Documented by: Fluticasone/Vilanterol (Fluticasone/Vilanterol 100/25mcg 14 Puffs/Inhaler) 1 puffs INH DAILY [facility] Stop: 06/05/21 08:59 Last Admin: 05/08/21 08:31 Dose: 1 puffs Documented by: Furosemide (Furosemide 40 Mg Tab) 40 mg PO QAM [facility] Stop: 06/05/21 08:59 Last Admin: 05/08/21 08:30 Dose: 40 mg Documented by: Glucagon (Glucagon For Inj 1 Mg Vial) 1 mg SQ UD PRN; Protocol PRN Reason: Hypoglycemia Protocol Stop: 06/04/21 20:07 Glucose (Glucose 10 Tabs/Tube) 4 - 8 tabs PO UD PRN; Protocol PRN Reason: Hypoglycemia Protocol Stop: 06/04/21 20:07 Last Admin: 05/07/21 06:12 Dose: 4 tabs Documented by: Glucose (Glucose 40% Gel 15 Gm Tube) 15 - 30 gm PO UD PRN; Protocol PRN Reason: Hypoglycemia Protocol Stop: 06/04/21 20:07 Heparin Sodium (Porcine) (Heparin Sod 5,000 Unit/0.5 Ml Vial) 5,000 units SQ Q8 ANDREA Stop: 06/04/21 21:59 Last Admin: 05/08/21 05:49 Dose: Not Given Documented by: Piperacillin Sod/Tazobactam (Sod 4.5 gm/ Dextrose) 120 mls @ 30 mls/hr IV Q8H [facility]; Protocol Stop: 05/15/21 21:59 Last Infusion: 05/08/21 11:34 Dose: Infused Documented by: Insulin Aspart (Insulin Aspart 100 Units/Ml 3 Ml Pen) 0 units SC ACHS [facility] Stop: 06/06/21 11:29 Last Admin: 05/08/21 08:28 Dose: Not Given Documented by: Ipratropium [place] (Ipratropium Hfa Inhaler (Combivent Respimat P&T Subs)) 1 puffs INH QIDR ANDREA Stop: 06/05/21 06:59 Last Admin: 05/08/21 11:12 Dose: 1 puffs Documented by: Lisinopril (Lisinopril 2.5 Mg Tab) 2.5 mg PO DAILY [facility] Stop: 06/05/21 08:59 Last Admin: 05/08/21 08:29 Dose: 2.5 mg Documented by: Methimazole (Methimazole 5 Mg Tablet) 10 mg PO DAILY [facility] Stop: 06/05/21 08:59 Last Admin: 05/08/21 08:30 Dose: 10 mg Documented by: Miscellaneous (Carbohydrates For Hypoglycemia ) 15 - 30 gm PO UD PRN PRN Reason: Hypoglycemia Protocol Stop: 06/04/21 20:07 Miscellaneous Information (Piperacill/Tazobac Consult Active) 1 ea N/A UD PRN PRN Reason: Consult Stop: 06/04/21 20:07 Ondansetron HCl (Ondansetron Inj 2 Mg/Ml 2 Ml Vial) 4 mg IV Q6H PRN PRN Reason: nausea Stop: 06/04/21 17:59 Last Admin: 05/08/21 08:34 Dose: 4 mg Documented by: Pantoprazole Sodium (Pantoprazole 40 Mg Tab) 40 mg PO BID ANDREA Stop: 06/04/21 20:59 Last Admin: 05/08/21 08:29 Dose: 40 mg Documented by: Potassium Chloride (Potassium Chloride Crtab 20 Meq Tabcr) 20 meq PO DAILY [facility] Stop: 06/05/21 08:59 Last Admin: 05/08/21 08:30 Dose: 20 meq Documented by: Promethazine HCl (Promethazine Hcl 25 Mg Tab) 25 mg PO Q6H PRN PRN Reason: nausea and vomiting Stop: 06/04/21 20:07 Vitamin D (Cholecalciferol 1,000 Units 25 Mcg Tab) 1,000 units PO QAM [facility] Stop: 06/05/21 08:59 Last Admin: 05/08/21 08:29 Dose: 1,000 units Documented by:
[2021-05-08] MEDS: ATORVASTATIN 40 MG TAB PO SCH (21:05)
[2021-05-08] MEDS: BIMATOPROST 0.01% OP SOLN 2.5 ML BTL OP SCH (21:06)
[2021-05-09] MEDS: HEPARIN SOD 5,000 UNIT/0.5 ML VIAL SQ SCH ×4 (05:52→20:32)
[2021-05-09] MEDS: PIPERACILLIN/TAZOBACTAM 4.5 GM in DEXTROSE 5% 100 ML IV SCH ×4 (05:52→21:37)
--- NOTE | 2021-05-09 06:54 | Surgery Progress Note ---
Date of Service May 09, 2021 Assessment & Plan (1) Diverticulitis: Plan: No change in plan from surgical standpoint IV antibiotics for now Await ID input We will consider colorectal surgery evaluation in the future Patient is extreme risk for surgery with her lung disease and history of congestive heart failure Admission and Anticipated Discharge Date Admission Date: May 05, 2021 Subjective Patient resting comfortably No acute changes overnight Review of Systems Review of Systems: All systems reviewed & are unremarkable except as noted in HPI & below Physical Exam Physical Exam: Resting comfortably in bed with nasal cannula Constitutional: well developed and well nourished; no acute distress Eyes: + anicteric sclerae Respiratory: normal respiratory effort; no respiratory distress Cardiovascular: Rate/Rhythm: + irregularly irregular Gastrointestinal (Abdomen): Percussion/Palpation: abdomen soft Skin: no rashes, warm and dry Psychiatric: Orientation: alert Results & Data ([facility]) Vital Signs (Past 12 Hours) Vital Signs Temp Pulse Resp BP Pulse Ox 05/08/21 22:14 36.7 C 62 18 111/76 96 05/08/21 19:27 70 16 96 PG Care Time/CCT Total # of Minutes Spent Total Time Spent with Patient: Total time spent is greater than 50% in coordination of care (as documented) at patient's floor/unit and/or counseling patient: Coding Level of Care Code 38669 Inpt Consult Level 3 Diagnoses Diverticulitis K57.92
[2021-05-09] MEDS: Albuterol HFA 8 GM Inhaler (Combivent Respimat P&T Subs) INH SCH ×4 (06:58→19:51)
[2021-05-09] MEDS: Ipratropium HFA Inhaler (Combivent Respimat P&T Subs) INH SCH ×4 (06:58→19:51)
[2021-05-09] MEDS: HYDROCODONE/ACETAMOPHEN 5/325MG TAB PO PRN ×2 (08:14→20:23)
[2021-05-09] MEDS: FLUTICASONE/VILANTEROL 100/25MCG 14 PUFFS/INHALER INH SCH (08:14)
[2021-05-09] MEDS: BRINZOLAMIDE (AZOPT) OPS 10 ML BTL OPB SCH ×2 (08:14→20:24)
[2021-05-09] MEDS: lisinopril 2.5 MG TAB PO SCH (08:15)
[2021-05-09] MEDS: methIMAzole 5 MG TABLET PO SCH (08:15)
[2021-05-09] MEDS: FUROSEMIDE 40 MG TAB PO SCH (08:15)
[2021-05-09] MEDS: ASPIRIN 81 MG ECTAB PO SCH (08:16)
[2021-05-09] MEDS: FLUDROCORTISONE ACETATE 0.1 MG TAB PO SCH (08:16)
[2021-05-09] MEDS: PANTOprazole 40 MG TAB PO SCH ×2 (08:16→20:23)
[2021-05-09] MEDS: CHOLECALCIFEROL 1,000 UNITS 25 MCG TAB PO SCH (08:16)
[2021-05-09] MEDS: FERROUS SULFATE 325 MG TAB PO SCH (08:16)
[2021-05-09] MEDS: POTASSIUM CHLORIDE CRTAB 20 MEQ TABCR PO SCH (08:16)
[2021-05-09] MEDS: ONDANSETRON INJ 2 MG/ML 2 ML VIAL IV PRN (08:49)
[2021-05-09] MEDS: INSULIN ASPART 100 UNITS/ML 3 ML PEN SC SCH ×4 (09:02→20:24)
--- NOTE | 2021-05-09 14:27 | Hospitalist Progress Note ---
Date of Service May 09, 2021 Assessment & Plan (1) Acute diverticulitis: (2) Colonic diverticular abscess: Plan: Continues to experience nausea and left lower quadrant abdominal pain. Appreciate general surgery input. No plan for surgical intervention at this billy e. Appreciate infectious disease input. Continue with Zosyn for now. Recommended for possibly IR drainage. We will touch base with surgery for their input. Plan to continue with the Zosyn for 3 to 4 weeks and then reimage. (3) Chronic HFrEF (heart failure with reduced ejection fraction): Plan: Currently at her baseline uses 2 L of oxygen at nighttime and 4 L during the daytime. Currently patient remains on 4 L of nasal cannula which is her baseline. Denies any worsening shortness of breath. Continue with [employer] Lasix. Continue to monitor ins and outs along with daily weights. (4) Adrenal insufficiency: Plan: -Diagnosed during recent admission -Discharged on hydrocortisone and fludrocortisone -Patient reports that daughter received instructions from endocrine Dr. Voss for hydrocortisone taper, which was completed prior to arrival -Continue fludrocortisone -Follow-up as an outpatient with endocrine (5) Chronic atrial fibrillation: Plan: -chronic issue, under control. -Digoxin and carvedilol discontinued during recent admission due to bradycardia -Heart rate currently controlled -Has watchman device in place (6) Diabetes mellitus, type 2: Plan: -Hgb A1c 7.1 03/2021 -Hold oral agents and utilize NovoLog per protocol while hospitalized (7) COPD (chronic obstructive pulmonary disease): Plan: -No signs of acute exacerbation, continue home inhalers (8) Subclinical hyperthyroidism: Plan: -Continue methimazole (9) DVT prophylaxis: Plan: -SQ heparin Full Code-confirmed with her on recent admission Dispo-uncertain, pending response to IV antibiotics. Admission and Anticipated Discharge Date Admission Date: May 05, 2021 Subjective Patient reports she was a nauseous this morning. Continues to have a left lower quadrant abdominal pain. Patient reports the pain as 5 out of 10 and nonradiating. Denies any diarrhea or dysuria. Denies any chest pain or shortness of breath. Rest of the review of system is negative. Review of Systems Review of Systems: All systems reviewed & are unremarkable except as noted in HPI & below Physical Exam Physical Exam: General: A&Ox3. HENT: NCAT, MMM, EOMI Eyes: PERRLA Neck: Supple, normal range of motion CVS: normal rate and rhythm Resp: b/l good breath sounds Abdomen: Soft, mild left lower quadrant tenderness appreciated Extremities: No c/c/e Neuro: face symmetric, strength grossly equal, no focal deficit Skin: no rashes/lesions/errythema MSK: no joint swelling/erythema Results & Data Results & Data ([facility]) Vital Signs (Past 12 Hours) Vital Signs Temp Pulse Resp BP Pulse Ox 05/09/21 11:22 81 18 98 05/09/21 07:42 36.4 C L 90 20 118/73 98 05/09/21 07:00 99 H 20 98 Laboratory Results Laboratory Results - last 24 hr 05/08/21 05/08/21 05/09/21 17:16 20:45 08:26 POC Glucose 106 H 128 H 109 H 05/09/21 11:59 POC Glucose 152 H
[2021-05-09] MEDS: ATORVASTATIN 40 MG TAB PO SCH (20:23)
[2021-05-09] MEDS: BIMATOPROST 0.01% OP SOLN 2.5 ML BTL OP SCH (20:23)
[2021-05-10] MEDS: HEPARIN SOD 5,000 UNIT/0.5 ML VIAL SQ SCH ×3 (05:43→21:35)
[2021-05-10] MEDS: PIPERACILLIN/TAZOBACTAM 4.5 GM in DEXTROSE 5% 100 ML IV SCH ×3 (05:43→21:35)
--- NOTE | 2021-05-10 06:58 | Surgery Progress Note ---
Date of Service May 10, 2021 Assessment & Plan (1) Colonic diverticular abscess: Plan: On initial scan pericolonic abscess may be intramural and is relatively small This would not be drained in our institution and normally we would not attempt it at this size and location We could repeat her CAT scan with IV contrast only this morning and reassess It is likely we will continue with IV antibiotics and this could be considered at home There is no plan for any surgical intervention at this point as she is stable I would discussed this with the medical team Admission and Anticipated Discharge Date Admission Date: May 05, 2021 Subjective ID report pending but from hospitalist note they suggested continuing Zosyn Possible IR drainage See assessment and plan Results & Data ([facility]) Vital Signs (Past 12 Hours) Vital Signs Temp Pulse Resp BP Pulse Ox 05/10/21 00:12 36.6 C 78 20 130/84 96 05/09/21 19:51 87 18 96 PG Care Time/CCT Total # of Minutes Spent Total Time Spent with Patient: Total time spent is greater than 50% in coordination of care (as documented) at patient's floor/unit and/or counseling patient: Coding Level of Care Code 10041 Inpt Consult Level 3 Diagnoses Colonic diverticular abscess K57.20
[2021-05-10] MEDS: Albuterol HFA 8 GM Inhaler (Combivent Respimat P&T Subs) INH SCH ×4 (07:12→19:26)
[2021-05-10] MEDS: Ipratropium HFA Inhaler (Combivent Respimat P&T Subs) INH SCH ×4 (07:13→19:26)
[2021-05-10] MEDS: HYDROCODONE/ACETAMOPHEN 5/325MG TAB PO PRN ×2 (07:39→21:37)
[2021-05-10 07:41] LABS: Basophils # (auto) 0.03 K/uL (0-0.2); Basophils % (auto) 0.4 %; Eosinophils # (auto) 0.59 K/uL (0-0.5); Eosinophils % (auto) 8.7 %; Hematocrit (blood only) 33.7 % (37-47); Hemoglobin 10.4 g/dL (12.0-16.0); Immature Granulocytes # (auto) 0.04 K/uL (0.00-0.02); Immature Granulocytes % (auto) 0.6 %; Lymphocytes # (auto) 2.11 K/uL (1.2-3.4); Lymphocytes % (auto) 30.9 %; Mean Corpuscular Hemoglobin 28.7 pg (25-34); Mean Corpuscular Hgb Conc 30.9 g/dL (32-36); Mean Corpuscular Volume 92.8 fL (80-100); Mean Platelet Volume 9.4 fL (7.4-10.4); Monocytes # (auto) 0.83 K/uL (0.11-0.59); Monocytes % (auto) 12.2 %; Neutrophils # (auto) 3.22 K/uL (1.4-6.5); Neutrophils % (auto) 47.2 %; Platelet Count 364 K/uL (130-400); RDW Coefficient of Variation 14.6 % (11.5-14.5); RDW Standard Deviation 49.6 fL (36.4-46.3); Red Blood Count 3.63 M/uL (4.2-5.4); White Blood Count 6.82 K/uL (4.8-10.8)
[2021-05-10 07:58] LABS: BUN Creatinine Ratio 7.2 (10-20); Calcium 8.7 mg/dl (8.5-10.1); Creatinine Clr Calc Pharmacy 55.9 ml/min; Est GFR (Non-African American) 54.4 ml/min; Potassium 3.6 mmol/L (3.5-5.1)
[2021-05-10] MEDS ORDERED: diphenhydrAMINE 50 MG/ML VIAL IV SCH (08:00)
[2021-05-10] MEDS ORDERED: OPTIRAY 320 100ml IV ONE (08:53)
[2021-05-10] MEDS: PANTOprazole 40 MG TAB PO SCH ×2 (09:13→20:24)
[2021-05-10] MEDS: FUROSEMIDE 40 MG TAB PO SCH (09:13)
[2021-05-10] MEDS: CHOLECALCIFEROL 1,000 UNITS 25 MCG TAB PO SCH (09:13)
[2021-05-10] MEDS: ASPIRIN 81 MG ECTAB PO SCH (09:13)
[2021-05-10] MEDS: POTASSIUM CHLORIDE CRTAB 20 MEQ TABCR PO SCH (09:13)
[2021-05-10] MEDS: methIMAzole 5 MG TABLET PO SCH (09:13)
[2021-05-10] MEDS: FLUDROCORTISONE ACETATE 0.1 MG TAB PO SCH (09:13)
[2021-05-10] MEDS: FERROUS SULFATE 325 MG TAB PO SCH (09:13)
[2021-05-10] MEDS: lisinopril 2.5 MG TAB PO SCH (09:13)
[2021-05-10] MEDS: INSULIN ASPART 100 UNITS/ML 3 ML PEN SC SCH ×4 (09:14→21:35)
[2021-05-10] MEDS: FLUTICASONE/VILANTEROL 100/25MCG 14 PUFFS/INHALER INH SCH (09:14)
[2021-05-10] MEDS: BRINZOLAMIDE (AZOPT) OPS 10 ML BTL OPB SCH ×2 (09:15→20:23)
--- NOTE | 2021-05-10 09:25 | CT Scan Report ---
ABDOMEN AND PELVIS CT WITH IV CONTRAST CT DOSE: 1576.89 mGy.cm HISTORY: Acute generalized abdominal pain h/o diverticulitis TECHNIQUE: Multiaxial CT images of the abdomen and pelvis were performed following the IV administrat ion of 94 cc of Optiray, A dose lowering technique was utilized adhering to the principles of ALARA. COMPARISON STUDY: 05/05/2021 FINDINGS: Moderate cardiomegaly. Coronary artery calcifications. Linear subsegmental bibasilar atelectasis/scar ring. No pneumatosis or pneumoperitoneum. The spleen, mildly moderate pancreas and right adrenal glan d are unremarkable. 1.8 cm left adrenal gland nodules unchanged suggestive of a probable adenoma. Chas gically absent gallbladder. Heterogeneity of the liver is 1.3 cm area of increased attenuation within the right hepatic lobe on image 19 suggestive of an enhancing lesion versus vascular shunting. A few additional smaller foci are noted within the hepatic dome. A few lesions within the bilateral kidneys are too small to characterize, possibly reflective of tesfaye l cysts. 2.0 cm cyst of the superior pole right kidney. No hydronephrosis. Unremarkable urinary bladd er. Suggested arcuate morphology of the uterus. Endometrium appears mildly thickened measuring up to approximately 10 mm. Asymmetric fullness of the left adnexum redemonstrated. Atherosclerosis of the a raphael without aneurysm. No adenopathy. No bowel obstruction. Acute sigmoid diverticulitis redemonstrated with persistent moderate sigmoid c olon wall thickening. There is a 2.7 cm prominently air filled structure along the left lateral danny n of the sigmoid colon on image 313 which is unchanged in size from comparison abutting the left adne xum. No drainable fluid collection. No CT evidence of acute appendicitis. Tiny fat filled periumbilic al hernia. Degenerative changes of the spine, pelvis and hips. IMPRESSION: 1. No significant change of the acute sigmoid diverticulitis. 2.7 cm air-filled structure adjacent to the mid sigmoid colon is unchanged suggestive of an inflamed diverticulum. A small abscess is consid ered less likely. No drainable fluid collection identified. 2. No pneumoperitoneum. 3. No bowel obstruction. 4. Additional findings as above. ACT 112: Negative or not required by law. The above report was generated using voice recognition software. It may contain grammatical, syntax o r spelling errors. Electronically signed by: Gabe Aviles M.D. 05/10/2021 9:24 AM
--- NOTE | 2021-05-10 15:50 | Hospitalist Progress Note ---
Date of Service May 10, 2021 Assessment & Plan (1) Acute diverticulitis: (2) Colonic diverticular abscess: Plan: Overall doing okay. No further episodes of nausea or vomiting. Have been tolerating diet. Appreciate general surgery input. No plan for surgical int ervention at this time. Appreciate infectious disease input. Continue with Zosyn for total of 3 to 4 weeks. Recommended for possibly IR drainage. CT reviewed today. No collection for IR drainage. Plan to continue with the Zosyn for 3 to 4 weeks and then reimage. Care management notified to start discharge process.. (3) Chronic HFrEF (heart failure with reduced ejection fraction): Plan: Currently at her baseline uses 2 L of oxygen at nighttime and 4 L during the daytime. Currently patient remains on 4 L of nasal cannula which is her baseline. Denies any worsening shortness of breath. Continue with FLOOR [employer] Lasix. Continue to monitor ins and outs along with daily weights. (4) Adrenal insufficiency: Plan: -Diagnosed during recent admission -Discharged on hydrocortisone and fludrocortisone -Patient reports that daughter received instructions from endocrine Dr. Voss for hydrocortisone taper, which was completed prior to arrival -Continue fludrocortisone -Follow-up as an outpatient with endocrine (5) Chronic atrial fibrillation: Plan: -chronic issue, under control. -Digoxin and carvedilol discontinued during recent admission due to bradycardia -Heart rate currently controlled -Has watchman device in place (6) Diabetes mellitus, type 2: Plan: -Hgb A1c 7.1 03/2021 -Hold oral agents and utilize NovoLog per protocol while hospitalized (7) COPD (chronic obstructive pulmonary disease): Plan: -No signs of acute exacerbation, continue home inhalers (8) Subclinical hyperthyroidism: Plan: -Continue methimazole (9) DVT prophylaxis: Plan: -SQ heparin Full Code-confirmed with her on recent admission Dispo-uncertain, pending response to IV antibiotics. Admission and Anticipated Discharge Date Admission Date: May 05, 2021 Subjective Patient is doing okay. She is tolerating diet. Does have left lower quadrant discomfort. Denies any further episodes of nausea or vomiting. Rest of the review of systems negative Review of Systems Review of Systems: All systems reviewed & are unremarkable except as noted in HPI & below Physical Exam Physical Exam: General: A&Ox3. HENT: NCAT, MMM, EOMI Eyes: PERRLA Neck: Supple, normal range of motion CVS: normal rate and rhythm Resp: b/l good breath sounds Abdomen: Soft, mild left lower quadrant tenderness appreciated Extremities: No c/c/e Neuro: face symmetric, strength grossly equal, no focal deficit Skin: no rashes/lesions/errythema MSK: no joint swelling/erythema Results & Data Results & Data ([facility]) Vital Signs (Past 12 Hours) Vital Signs Temp Pulse Resp BP Pulse Ox 05/10/21 15:41 64 18 95 05/10/21 11:23 90 18 96 05/10/21 07:43 36.6 C 57 L 18 115/71 95 05/10/21 07:15 83 18 96
[2021-05-10] MEDS: ATORVASTATIN 40 MG TAB PO SCH (20:23)
[2021-05-10] MEDS: BIMATOPROST 0.01% OP SOLN 2.5 ML BTL OP SCH (20:24)
[2021-05-10] MEDS: PROMETHAZINE HCL 25 MG TAB PO PRN (21:44)
[2021-05-11] MEDS: ONDANSETRON INJ 2 MG/ML 2 ML VIAL IV PRN ×2 (01:15→13:51)
[2021-05-11] MEDS: PIPERACILLIN/TAZOBACTAM 4.5 GM in DEXTROSE 5% 100 ML IV SCH ×2 (06:26→13:51)
[2021-05-11] MEDS: HEPARIN SOD 5,000 UNIT/0.5 ML VIAL SQ SCH (06:27)
[2021-05-11] MEDS: PROMETHAZINE HCL 25 MG TAB PO PRN ×2 (06:32→18:31)
[2021-05-11] MEDS: Ipratropium HFA Inhaler (Combivent Respimat P&T Subs) INH SCH ×4 (07:41→15:34)
[2021-05-11] MEDS: Albuterol HFA 8 GM Inhaler (Combivent Respimat P&T Subs) INH SCH ×4 (07:41→15:32)
[2021-05-11] MEDS: HYDROCODONE/ACETAMOPHEN 5/325MG TAB PO PRN ×2 (08:51→16:05)
[2021-05-11] MEDS: methIMAzole 5 MG TABLET PO SCH (09:41)
[2021-05-11] MEDS: POTASSIUM CHLORIDE CRTAB 20 MEQ TABCR PO SCH (09:42)
[2021-05-11] MEDS: FUROSEMIDE 40 MG TAB PO SCH (09:42)
[2021-05-11] MEDS: PANTOprazole 40 MG TAB PO SCH (09:42)
[2021-05-11] MEDS ORDERED: POLYETHYLENE (MIRALAX) 17 GM PACK PO ONE (09:43)
[2021-05-11] MEDS: FLUDROCORTISONE ACETATE 0.1 MG TAB PO SCH (09:43)
[2021-05-11] MEDS: FERROUS SULFATE 325 MG TAB PO SCH (09:43)
[2021-05-11] MEDS: lisinopril 2.5 MG TAB PO SCH (09:44)
[2021-05-11] MEDS: ASPIRIN 81 MG ECTAB PO SCH (09:44)
[2021-05-11] MEDS: CHOLECALCIFEROL 1,000 UNITS 25 MCG TAB PO SCH (09:44)
--- NOTE | 2021-05-11 09:47 | Surgery Progress Note ---
Date of Service May 11, 2021 Assessment & Plan (1) Colonic diverticular abscess: Plan: CT stable, last WBC 6 can begin low fiber diet ID recommends continuing IV abx eventual outpatient CT and colorectal f/u [facility] surgery covering the weekend Admission and Anticipated Discharge Date Admission Date: May 05, 2021 Subjective little better this morning, no BM for several days Physical Exam Gastrointestinal (Abdomen): Percussion/Palpation: + abdomen tender (mild LLQ) and abdomen soft Results & Data ([facility]) Vital Signs (Past 12 Hours) Vital Signs Temp Pulse Resp BP BP Pulse Ox 05/11/21 07:42 82 18 96 05/11/21 07:36 36.5 C 91 H 16 112/82 95 05/10/21 21:59 36.9 C 76 16 137/76 95 PG Care Time/CCT Total # of Minutes Spent Total Time Spent with Patient: Total time spent is greater than 50% in coordination of care (as documented) at patient's floor/unit and/or counseling patient: Coding Level of Care Code 49600 Subseq Hosp Care Lvl 1 Diagnoses Colonic diverticular abscess K57.20
[2021-05-11] MEDS: BRINZOLAMIDE (AZOPT) OPS 10 ML BTL OPB SCH (10:31)
[2021-05-11] MEDS: FLUTICASONE/VILANTEROL 100/25MCG 14 PUFFS/INHALER INH SCH (10:32)
[2021-05-11] MEDS: INSULIN ASPART 100 UNITS/ML 3 ML PEN SC SCH ×3 (10:36→18:13)
--- NOTE | 2021-05-11 16:35 | Hospitalist Progress Note ---
Date of Service May 11, 2021 Assessment & Plan (1) Acute diverticulitis: (2) Colonic diverticular abscess: Plan: Overall doing okay. No further episodes of nausea or vomiting. Have been tolerating diet. Appreciate general surgery input. No plan for surgical int ervention at this time. Appreciate infectious disease input. Continue with Zosyn for total of 3 to 4 weeks. Recommended for possibly IR drainage. CT reviewed today. No collection for IR drainage. Plan to continue with the Zosyn for 3 to 4 weeks and then reimage. Care management notified to start discharge process.. (3) Chronic HFrEF (heart failure with reduced ejection fraction): Plan: Currently at her baseline uses 2 L of oxygen at nighttime and 4 L during the daytime. Currently patient remains on 4 L of nasal cannula which is her baseline. Denies any worsening shortness of breath. Continue with [employer] Lasix. Continue to monitor ins and outs along with daily weights. (4) Adrenal insufficiency: Plan: -Diagnosed during recent admission -Discharged on hydrocortisone and fludrocortisone -Patient reports that daughter received instructions from endocrine Dr. Voss for hydrocortisone taper, which was completed prior to arrival -Continue fludrocortisone -Follow-up as an outpatient with endocrine (5) Chronic atrial fibrillation: Plan: -chronic issue, under control. -Digoxin and carvedilol discontinued during recent admission due to bradycardia -Heart rate currently controlled -Has watchman device in place (6) Diabetes mellitus, type 2: Plan: -Hgb A1c 7.1 03/2021 -Hold oral agents and utilize NovoLog per protocol while hospitalized (7) COPD (chronic obstructive pulmonary disease): Plan: -No signs of acute exacerbation, continue home inhalers (8) Subclinical hyperthyroidism: Plan: -Continue methimazole (9) DVT prophylaxis: Plan: -SQ heparin Full Code-confirmed with her on recent admission Dispo-uncertain, pending response to IV antibiotics. Admission and Anticipated Discharge Date Admission Date: May 05, 2021 Review of Systems Review of Systems: All systems were reviewed and negative except as indicated in HPI above. Physical Exam Physical Exam: CONSTITUTIONAL: obese, vitals as above,NAD EYES: normal conjunctivae, no scleral icterus ENT: external ear and nose normal, MMM RESPIRATORY: clear to auscultation bilaterally, no crackles, rales or wheezes, normal respiratory effort CARDIOVASCULAR: irregular rate and rhythm, S1 and 2 heard without murmurs, gallops or rubs, no JVD, no peripheral edema GASTROINTESTINAL: soft, TTP to left abdomen (incorrectly documented yesterday as there was pain to palpation and this has improved on today's exam) nondistended, no guarding MUSCULOSKELETAL: strength 5/5 throughout, head is normocephalic and atraumatic SKIN: warm and dry NEUROLOGIC: No facial palsy, no dysarthria. CN 2-12 grossly intact, no sensory deficit, normal cognition, normal speech PSYCHIATRIC: alert cooperative and oriented to person, place and time. Results & Data Results & Data ([facility]) Vital Signs (Past 12 Hours) Vital Signs Temp Pulse Resp BP Pulse Ox 05/11/21 15:34 76 18 97 05/11/21 15:33 37.1 C 72 16 115/78 97 05/11/21 12:02 78 18 98 05/11/21 07:42 82 18 96 05/11/21 07:36 36.5 C 91 H 16 112/82 95 Medications Administered Current Inpatient Medications Acetaminophen (Acetaminophen 325 Mg Tab) 650 mg PO Q4H PRN PRN Reason: pain/fever Stop: 06/04/21 20:07 Hydrocodone Bitart/Acetaminophen (Hydrocodone/Acetamophen 5/325mg Tab) 1 tab PO Q6H PRN PRN Reason: Pain Stop: 05/19/21 20:07 Last Admin: 05/11/21 16:05 Dose: 1 tab Documented by: Albuterol (Albuterol Hfa 8 Gm Inhaler (Combivent Respimat P&T Subs)) 1 puffs INH QIDR ANDREA Stop: 06/05/21 06:59 Last Admin: 05/11/21 15:32 Dose: 1 puffs Documented by: Aspirin (Aspirin 81 Mg Ectab) 81 mg PO DAILY ANDREA Stop: 06/05/21 08:59 Last Admin: 05/11/21 09:44 Dose: 81 mg Documented by: Atorvastatin Calcium (Atorvastatin 40 Mg Tab) 40 mg PO HS ANDREA Stop: 06/04/21 20:59 Last Admin: 05/10/21 20:23 Dose: 40 mg Documented by: Bimatoprost (Bimatoprost 0.01% Op Soln 2.5 Ml Btl) 1 drops OP HS ANDREA Stop: 06/04/21 20:59 Last Admin: 05/10/21 20:24 Dose: 1 drops Documented by: Brinzolamide (Brinzolamide (Azopt) Ops 10 Ml Btl) 1 drops OPB BID ANDREA Stop: 06/04/21 20:59 Last Admin: 05/11/21 10:31 Dose: 1 drops Documented by: Dextrose (Dextrose 50% 50 Ml Syringe) 25 - 50 ml IV UD PRN; Protocol PRN Reason: Hypoglycemia Protocol Stop: 06/04/21 20:07 Last Admin: 05/05/21 21:29 Dose: 25 ml Documented by: Enoxaparin Sodium (Enoxaparin Inj 40 Mg/0.4 Ml Syr) 40 mg SQ QAM [facility] Stop: 06/11/21 08:59 Ferrous Sulfate (Ferrous Sulfate 325 Mg Tab) 325 mg PO QAM [facility] Stop: 06/05/21 08:59 Last Admin: 05/11/21 09:43 Dose: 325 mg Documented by: Fludrocortisone Acetate (Fludrocortisone Acetate 0.1 Mg Tab) 0.1 mg PO QAM ANDREA Stop: 06/05/21 08:59 Last Admin: 05/11/21 09:43 Dose: 0.1 mg Documented by: Fluticasone/Vilanterol (Fluticasone/Vilanterol 100/25mcg 14 Puffs/Inhaler) 1 puffs INH DAILY [facility] Stop: 06/05/21 08:59 Last Admin: 05/11/21 10:32 Dose: 1 puffs Documented by: Furosemide (Furosemide 40 Mg Tab) 40 mg PO QAM ANDREA Stop: 06/05/21 08:59 Last Admin: 05/11/21 09:42 Dose: 40 mg Documented by: Glucagon (Glucagon For Inj 1 Mg Vial) 1 mg SQ UD PRN; Protocol PRN Reason: Hypoglycemia Protocol Stop: 06/04/21 20:07 Glucose (Glucose 10 Tabs/Tube) 4 - 8 tabs PO UD PRN; Protocol PRN Reason: Hypoglycemia Protocol Stop: 06/04/21 20:07 Last Admin: 05/07/21 06:12 Dose: 4 tabs Documented by: Glucose (Glucose 40% Gel 15 Gm Tube) 15 - 30 gm PO UD PRN; Protocol PRN Reason: Hypoglycemia Protocol Stop: 06/04/21 20:07 Piperacillin Sod/Tazobactam (Sod 4.5 gm/ Dextrose) 120 mls @ 30 mls/hr IV Q8H [facility]; Protocol Stop: 05/15/21 21:59 Last Admin: 05/11/21 13:51 Dose: 30 mls/hr Documented by: Insulin Aspart (Insulin Aspart 100 Units/Ml 3 Ml Pen) 0 units SC ACHS [facility] Stop: 06/06/21 11:29 Last Admin: 05/11/21 13:49 Dose: Not Given Documented by: Ipratropium [place] (Ipratropium Hfa Inhaler (Combivent Respimat P&T Subs)) 1 puffs INH QIDR [facility] Stop: 06/05/21 06:59 Last Admin: 05/11/21 15:34 Dose: 1 puffs Documented by: Lisinopril (Lisinopril 2.5 Mg Tab) 2.5 mg PO DAILY [facility] Stop: 06/05/21 08:59 Last Admin: 05/11/21 09:44 Dose: 2.5 mg Documented by: Methimazole (Methimazole 5 Mg Tablet) 10 mg PO DAILY [facility] Stop: 06/05/21 08:59 Last Admin: 05/11/21 09:41 Dose: 10 mg Documented by: Miscellaneous (Carbohydrates For Hypoglycemia ) 15 - 30 gm PO UD PRN PRN Reason: Hypoglycemia Protocol Stop: 06/04/21 20:07 Miscellaneous Information (Piperacill/Tazobac Consult Active) 1 ea N/A UD PRN PRN Reason: Consult Stop: 06/04/21 20:07 Ondansetron HCl (Ondansetron Inj 2 Mg/Ml 2 Ml Vial) 4 mg IV Q6H PRN PRN Reason: nausea Stop: 06/04/21 17:59 Last Admin: 05/11/21 13:51 Dose: 4 mg Documented by: Pantoprazole Sodium (Pantoprazole 40 Mg Tab) 40 mg PO BID [facility] Stop: 06/04/21 20:59 Last Admin: 05/11/21 09:42 Dose: 40 mg Documented by: Potassium Chloride (Potassium Chloride Crtab 20 Meq Tabcr) 20 meq PO DAILY [facility] Stop: 06/05/21 08:59 Last Admin: 05/11/21 09:42 Dose: 20 meq Documented by: Promethazine HCl (Promethazine Hcl 25 Mg Tab) 25 mg PO Q6H PRN PRN Reason: nausea and vomiting Stop: 06/04/21 20:07 Last Admin: 05/11/21 06:32 Dose: 25 mg Documented by: Vitamin D (Cholecalciferol 1,000 Units 25 Mcg Tab) 1,000 [facility] Stop: 06/05/21 08:59 Last Admin: 05/11/21 09:44 Dose: 1,000 units Documented by:
--- NOTE | 2021-05-11 17:12 | Discharge Summary ---
Date of Service May 11, 2021 Admission HPI Per Admitting Provider 80-year-old female with PMH DM type II, CKD stage III, COPD, chronic hypoxic respiratory failure on chronic 2 L of oxygen, chronic systolic and diastolic CHF, atrial fibrillation with watchman device in place, adrenal insufficiency, and other problems listed below who presents to the ED for evaluation of left lower quadrant abdominal pain. Patient recently admitted to [facility] 04/10 through 04/18 for management of ESBL E. coli UTI, tachybradycardia syndrome, and newly diagnosed adrenal insufficiency. Patient reports she developed left lower quadrant abdominal pain about 1 week ago. Reports discomfort has been persist ent. Reports some associated nausea however no vomiting. Denies diarrhea, bright red bleeding per rectum, dark tarry stools. No fevers or chills. Denies chest pain. Reports chronic exertional shortness of breath which is unchanged from baseline. No lightheadedness, dizziness, diaphoresis, syncopal events. Denies urinary symptoms. In the ED, CT ABD/pelvis shows acute sigmoid diverticulitis with 2.6 cm diverticular abscess. Patient is hemodynamically stable. She was given IV Tylenol, IV diphenhydramine, IV Zofran, IV Zosyn, IVF. Admission Exam Per Admitting Provider 80-year-old female with PMH DM type II, CKD stage III, COPD, chronic hypoxic respiratory failure on chronic 2 L of oxygen, chronic systolic and diastolic CHF, atrial fibrillation with watchman device in place, adrenal insufficiency, and other problems listed below who presents to the ED for evaluation of left lower quadrant abdominal pain. Patient recently admitted to [facility] 04/10 through 04/18 for management of ESBL E. coli UTI, tachybradycardia syndrome, and newly diagnosed adrenal insufficiency. Patient reports she developed left lower qu adrant abdominal pain about 1 week ago. Reports discomfort has been persistent. Reports some associated nausea however no vomiting. Denies diarrhea, bright red bleeding per rectum, dark tarry stools. No fevers or chills. Denies chest pain. Reports chronic exertional shortness of breath which is unchanged from baseline. No lightheadedness, dizziness, diaphoresis, syncopal events. Denies urinary symptoms. In the ED, CT ABD/pelvis shows acute sigmoid diverticulitis with 2.6 cm diverticular abscess. Patient is hemodynamically stable. She was given IV Tylenol, IV diphenhydramine, IV Zofran, IV Zosyn, IVF Principal Diagnosis Complicated sigmoid diverticulitis Chronic heart failure with reduced ejection fraction Adrenal insufficiency Chronic atrial fibrillation DMII Discharge Exam CONSTITUTIONAL: obese, vitals stable, NAD EYES: normal conjunctivae, no scleral icterus ENT: external ear and nose normal, MMM RESPIRATORY: clear to auscultation bilaterally, no crackles, rales or wheezes, normal respiratory effort CARDIOVASCULAR: irregular rate and rhythm, S1 and 2 heard without murmurs, gallops or rubs, no JVD, no peripheral edema GASTROINTESTINAL: soft, TTP to left abdomen, nondistended, no guarding MUSCULOSKELETAL: strength 5/5 throughout, head is normocephalic and atraumatic SKIN: warm and dry NEUROLOGIC: No facial palsy, no dysarthria. CN 2-12 grossly intact, no sensory deficit, normal cognition, normal speech PSYCHIATRIC: alert cooperative and oriented to person, place and time. Discharge Data Allergies Allergy/AdvReac Type Severity Reaction Status Date / Time salmon oil Allergy Severe HIVES-REDDENED Verified 05/05/21 15:07 ALL OVER Iodinated Contrast Media Allergy Intermediate HIVES-GI Verified 05/05/21 15:07 SYMPTOMS valsartan Allergy Intermediate FAST HEART Verified 05/05/21 15:07 BEAT bupropion AdvReac Mild GI SYMPTOMS Verified 05/05/21 15:07 enalapril AdvReac Mild GI SYMPTOMS Verified 05/05/21 15:07 escitalopram AdvReac Mild GI SYMPTOMS Verified 05/05/21 15:07 metoprolol AdvReac Mild LOWERS Verified 05/05/21 15:07 PULSE RATE verapamil AdvReac Mild GI UPSET, Verified 05/05/21 15:07 fast heart rate Consultations 05/05/21 17:17 Consult General Surgery Stat 05/05/21 17:26 ED Decision to Admit Stat 05/07/21 17:44 Consult Infectious Diseases Routine Ordered Studies Laboratory Results WBC 6.82 K/uL (4.8-10.8) 05/10/21 07:02 RBC 3.63 M/uL (4.2-5.4) L 05/10/21 07:02 Hgb 10.4 g/dL (12.0-16.0) L 05/10/21 07:02 Hct 33.7 % (37-47) L 05/10/21 07:02 MCV 92.8 fL (80-100) 05/10/21 07:02 MCH 28.7 pg (25-34) 05/10/21 07:02 MCHC 30.9 g/dL (32-36) L 05/10/21 07:02 RDW Std Deviation 49.6 fL (36.4-46.3) H 05/10/21 07:02 RDW Coeff of Jesika 14.6 % (11.5-14.5) H 05/10/21 07:02 Plt Count 364 K/uL (130-400) 05/10/21 07:02 MPV 9.4 fL (7.4-10.4) 05/10/21 07:02 Immature Gran % (Auto) 0.6 % 05/10/21 07:02 Neut % (Auto) 47.2 % 05/10/21 07:02 Lymph % (Auto) 30.9 % 05/10/21 07:02 [place] % (Auto) 12.2 % 05/10/21 07:02 Eos % (Auto) 8.7 % 05/10/21 07:02 Baso % (Auto) 0.4 % 05/10/21 07:02 Neut # (Auto) 3.22 K/uL (1.4-6.5) 05/10/21 07:02 Lymph # (Auto) 2.11 K/uL (1.2-3.4) 05/10/21 07:02 [place] # (Auto) 0.83 K/uL (0.11-0.59) H 05/10/21 07:02 Eos # (Auto) 0.59 K/uL (0-0.5) H 05/10/21 07:02 Baso # (Auto) 0.03 K/uL (0-0.2) 05/10/21 07:02 Immature Gran # (Auto) 0.04 K/uL (0.00-0.02) H 05/10/21 07:02 Sodium 143 mmol/L (136-145) 05/10/21 07:02 Potassium 3.6 mmol/L (3.5-5.1) 05/10/21 07:02 Chloride 107 mmol/L (98-107) 05/10/21 07:02 Carbon Dioxide 33 mmol/L (21-32) H 05/10/21 07:02 Anion Gap 2.0 (3-11) L 05/10/21 07:02 BUN 7 mg/dl (7-18) 05/10/21 07:02 Creatinine 0.97 mg/dl (0.6-1.2) 05/10/21 07:02 Est Cr Clr Drug Dosing 55.9 ml/min 05/10/21 07:02 Est GFR ( Amer) 63.0 ml/min 05/10/21 07:02 Est GFR (Non-Af Amer) 54.4 ml/min 05/10/21 07:02 BUN/Creatinine Ratio 7.2 (10-20) L 05/10/21 07:02 Glucose 104 mg/dl (70-99) H 05/10/21 07:02 POC Glucose 161 mg/dl (70-99) H 05/11/21 16:53 Lactate 1.2 mmol/L (0.4-2.0) 05/05/21 14:20 Calcium 8.7 mg/dl (8.5-10.1) 05/10/21 07:02 Total Bilirubin 0.3 mg/dl (0.2-1) 05/05/21 14:20 AST 10 U/L (15-37) L 05/05/21 14:20 ALT 18 U/L (12-78) 05/05/21 14:20 Alkaline Phosphatase 154 U/L (45-117) H 05/05/21 14:20 Total Protein 8.0 gm/dl (6.4-8.2) 05/05/21 14:20 Albumin 3.4 gm/dl (3.4-5.0) 05/05/21 14:20 Globulin 4.6 gm/dl (2.5-4.0) H 05/05/21 14:20 Albumin/Globulin Ratio 0.7 (0.9-2) L 05/05/21 14:20 Lipase 48 U/L (73-393) L 05/05/21 14:20 Urine Color Yellow 05/05/21 14:23 Urine Appearance Clear (Clear) 05/05/21 14:23 Urine pH 6.0 (4.5-7.5) 05/05/21 14:23 Ur Specific Burt 1.010 (1.000-1.030) 05/05/21 14:23 Urine Protein Negative (Negative) 05/05/21 14:23 Urine Glucose (UA) Negative (Negative) 05/05/21 14:23 Urine Ketones Negative (Negative) 05/05/21 14:23 Urine Blood Negative (Negative) 05/05/21 14:23 Urine Nitrite Negative (Negative) 05/05/21 14:23 Urine Bilirubin Negative (Negative) 05/05/21 14:23 Urine Urobilinogen Negative (Negative) 05/05/21 14:23 Ur Leukocyte Esterase 1+ (Negative) H 05/05/21 14:23 Urine WBC (Auto) 1-5 /hpf (0-5) 05/05/21 14:23 Urine RBC (Auto) 5-10 /hpf (0-4) H 05/05/21 14:23 U Hyaline Cast (Auto) 1-5 /lpf (0-5) 05/05/21 14:23 U Epithel Cells (Auto) >30 /lpf (0-5) H 05/05/21 14:23 Urine Bacteria (Auto) Negative (Negative) 05/05/21 14:23 COVID-19 Eval Order Covid19 at [facility] 05/05/21 17:27 SARS-CoV-2 (PCR) NEGATIVE (Negative) 05/05/21 17:27 Impressions Abdomen/Pelvis CT 05/10/21 07:[address] WITH IV CONTRAST CT DOSE: 1576.89 mGy.cm HISTORY: Acute generalized abdominal pain h/o diverticulitis TECHNIQUE: Multiaxial CT images of the abdomen and pelvis were performed following the IV administration of 94 cc of Optiray, A dose lowering technique was utilized adhering to the principles of ALARA. COMPARISON STUDY: 05/05/2021 FINDINGS: Moderate cardiomegaly. Coronary artery calcifications. Linear subsegmental bibasilar atelectasis/scarring. No pneumatosis or pneumoperitoneum. The spleen, mildly moderate pancreas and right adrenal gland are unremarkable. 1.8 cm left adrenal gland nodules unchanged suggestive of a probable adenoma. Surgically absent gallbladder. Heterogeneity of the liver is 1.3 cm area of increased attenuation within the right hepatic lobe on image 19 suggestive of an enhancing lesion versus vascular shunting. A few additional smaller foci are noted within the hepatic dome. A few lesions within the bilateral kidneys are too small to characterize, possibly reflective of renal cysts. 2.0 cm cyst of the superior pole right kidney. No hydronephrosis. Unremarkable urinary bladder. Suggested arcuate morphology of the uterus. Endometrium appears mildly thickened measuring up to approximately 10 mm. Asymmetric fullness of the left adnexum redemonstrated. Atherosclerosis of the aorta without aneurysm. No adenopathy. No bowel obstruction. Acute sigmoid diverticulitis redemonstrated with persistent moderate sigmoid colon wall thickening. There is a 2.7 cm prominently air filled structure along the left lateral margin of the sigmoid colon on image 313 which is unchanged in size from comparison abutting the left adnexum. No drainable fluid collection. No CT evidence of acute appendicitis. Tiny fat filled periumbilical hernia. Degenerative changes of the spine, pelvis and hips. IMPRESSION: 1. No significant change of the acute sigmoid diverticulitis. 2.7 cm air-filled structure adjacent to the mid sigmoid colon is unchanged suggestive of an inflamed diverticulum. A small abscess is considered less likely. No drainable fluid collection identified. 2. No pneumoperitoneum. 3. No bowel obstruction. 4. Additional findings as above. ACT 112: Negative or not required by law. The above report was generated using voice recognition software. It may contain grammatical, syntax or spelling errors. Electronically signed by: Gabe Aviles M.D. 05/10/2021 9:24 AM Hospital Course (1) Acute diverticulitis: (2) Colonic diverticular abscess: Admitted and placed on Zosyn Surgery consulted and recommended high risk for surgery and would opt for medical management ID consulted and recommended consideration for IR drainage and if not, then 3-4 weeks of intravenous zosyn She reported only slight improvement in tenderness of abdomen. A CT abd/pel was repeated 5 days into hospital stay without much change in abscess. Image was sent to IR team at [facility] for review and their thought was that this would likely not need to be drained, as it was so small. Similarly, [place] general surgeon solution [place] [facility] [place] her for operative management. She was discharged to rehab with continued intravenous antibiotic therapy. Follow-up with primary care is essential, as weekly labs will need to be checked while on Zosyn. (3) Chronic HFrEF (heart failure with reduced ejection fraction): Currently at her baseline uses 2 L of oxygen at nighttime and 4 L during the daytime. Currently patient remains on 4 L of nasal cannula which is her baseline. No evidence of exacerbation this admission. Continues on daily Lasix. (4) Adrenal insufficiency: -Diagnosed during recent admission -Discharged on hydrocortisone and fludrocortisone -Patient reports that daughter received instructions from endocrine Dr. Voss for hydrocortisone taper, which was completed prior to admission -Continue fludrocortisone -Follow-up as an outpatient with endocrine (5) Chronic atrial fibrillation: -chronic issue, under control. -Digoxin and carvedilol discontinued during recent admission due to bradycardia -Heart rate currently controlled -Has watchman device in place (6) Diabetes mellitus, type 2: -Hgb A1c 7.1 03/2021 -Hold oral agents and utilize NovoLog per protocol while hospitalized (7) COPD (chronic obstructive pulmonary disease): -No signs of acute exacerbation, continue home inhalers (8) Subclinical hyperthyroidism: -Continue methimazole Total Time Total Time Spent Total Time Spent (In Minutes): 60 Discharge Plan Discharge Items Patient Disposition: Transfer Inpatient Rehab Fac Reason For Visit: SIGMOID DIVERTICULITIS Discharge Diagnosis: Complicated sigmoid diverticulitis Chronic heart failure with reduced ejection fraction Adrenal insufficiency Chronic atrial fibrillation DMII Condition on Discharge: Fair Activity: Resume your previous activity Non-emergency contact: Primary Care Provider Call non-emergency contact if: you have any medication questions, your symptoms worsen, your pain is not controlled, your pain is worsening, your pain is unusual for you, your pain is concerning for you and you have a fever Follow-up/Referrals: Marcela Pinto MD [Primary Care Provider] - Diet: Carb Consistent or DM2 and Low Fiber Addtl Attending Provider Instructions: Please complete another 21 days of Zosyn intravenously to complete the full antibiotic course for your diverticulitis. While you are on the intravenous antibiotics, you should have weekly bloodwork drawn and monitored. While you are at [facility], the physician on staff can do this, however, when you are going home, this will need to be ordered and monitored by your primary care provider. Please follow-up with your primary care provider within one week of hospital discharge to ensure you are still doing well after this hospital stay. This visit will also be important to keep watch on your intravenous antibiotics. You will need a weekly CBC and BMP while on this medication. It was a pleasure taking care of you! Please call if you have any questions or problems. You can reach a [facility] hospitalist on duty at [facility] 24 hours a day by calling [phone]. Take care of yourself. Ruby Begum DO [facility] Hospitalist Pending Studies at Discharge: No Stand-Alone Forms: My [facility] Skilled Items Patient informed of condition?: Yes DNR: No Discharge Level of Care: Acute rehab Communicable Disease: No Discharge Prognosis: Stable Lines: None Urinary Catheter: No Medications and DC Order Prescriptions: New Zosyn in dextrose (iso-osm) 4.5 gram/100 mL piggyback 4.5 g IV Q8H Qty: 7087.5 RF: 0 Continued albuterol sulfate [Ventolin HFA] 90 mcg/actuation HFA aerosol inhaler 2 puff INHALATION QID PRN (Reason: Shortness Of Breath) Qty: 6.7 RF: 6 methimazole 10 mg tablet 10 mg PO DAILY RF: 0 aspirin [Aspirin Low Dose] 81 mg tablet,delayed release (DR/EC) 81 mg PO DAILY RF: 0 lisinopril 2.5 mg tablet 2.5 mg PO DAILY RF: 0 multivitamin Tablet 1 tab PO QAM RF: 0 promethazine 25 mg Tablet 25 mg PO Q6H PRN (Reason: nausea and vomiting) Qty: 60 RF: 0 dicyclomine 20 mg Tablet 20 mg PO BID 30 Days Qty: 60 RF: 0 atorvastatin 40 mg Tablet 40 mg PO HS RF: 0 docusate sodium 100 mg Capsule 100 mg PO QAM RF: 0 omeprazole 20 mg Capsule,Delayed Release(Dr/Ec) 20 mg PO BID RF: 0 cholecalciferol (vitamin D3) [Vitamin D3] 1,000 unit Capsule 1,000 unit PO QAM RF: 0 ferrous sulfate [iron] 325 mg (65 mg iron) tablet 325 mg PO QAM RF: 0 glimepiride 4 mg tablet 2 mg PO QAM RF: 0 zafirlukast 20 mg tablet 20 mg PO QAM RF: 0 albuterol sulfate 2.5 mg /3 mL (0.083 %) Solution For Nebulization 2.5 mg INHALATION BID PRN (Reason: .WORSENING ASTHMA) RF: 0 brinzolamide [Azopt] 1 % Drops,Suspension 1 drp OPB BID RF: 0 Lumigan 0.01 % drops 1 drp OPB HS RF: 0 polyethylene glycol 3350 [Miralax] 17 gram/dose Powder 17 g PO BID PRN (Reason: Constipation) RF: 0 hydrocodone-acetaminophen 5-325 mg Tablet 1 tab PO Q6H PRN (Reason: Pain) RF: 0 Probiotic 3 billion cell Capsule 3,000 mmu cells PO QAM RF: 0 spironolactone 25 mg Tablet 12.5 mg PO DAILY Qty: 30 RF: 2 Advair HFA 230-21 mcg/actuation HFA aerosol inhaler 2 puff INHALATION BID RF: 0 potassium chloride [Klor-Con M20] 20 mEq tablet,ER particles/crystals 20 meq PO DAILY RF: 0 Combivent Respimat 20-100 mcg/actuation mist 1 puff INHALATION QID RF: 0 furosemide 40 mg Tablet 40 mg PO QAM 30 Days Qty: 30 RF: 0 furosemide 20 mg Tablet 20 mg PO DAILY@1700 30 Days Qty: 30 RF: 0 fludrocortisone 0.1 mg Tablet 0.1 mg PO QAM 30 Days Qty: 30 RF: 0 Discharge Orders: Discharge Order (Routine); Ordered 05/11/21 Ordered By: Ruby Car/Other Patient Handouts: Low-Fiber Diet, Diabetes and Heart Disease, Diverticulosis Diverticulitis Admission Data Admit Date/Time: 05/05/21 17:33 Attending Provider: Ruby Begum Admit Provider: Ruby Begum Primary Care Provider: Marcela Pinto Other Providers: Samson Ariza ; Ruby Begum ; Shimon Garcia ; Ingris Reyes ; Chavez Jarerll I. ; Dhruv Sen II ; Mamta Farley ; Jerry Wilson ; [facility] Other Interventions: Discharge Summary Assessment (RN) Last Done: 05/11/21 19:21
[2021-05-12] MEDS ORDERED: ENOXAPARIN INJ 40 MG/0.4 ML SYR SQ SCH (09:00)
== END 2021-05-11 19:22 | DRG 392 ==
LOC: ED 13:07 → 3W 17:33 → SUATTDRO 17:33 → 3W 19:20

== ENCOUNTER 2022-05-31 14:09 | Inpatient (IN) ==
[2022-05-31] MEDS ORDERED: PIPERACILLIN/TAZOBACTAM 4.5 GM/120 ML BAG IV ONE (15:06)
[2022-05-31 15:32] LABS: Basophils # (auto) 0.06 K/uL (0-0.2); Basophils % (auto) 0.4 %; Eosinophils # (auto) 0.42 K/uL (0-0.50); Eosinophils % (auto) 2.9 %; Hematocrit (blood only) 35.9 % (34.1-44.9); Immature Granulocytes # (auto) 0.23 K/uL (0.00-0.02); Immature Granulocytes % (auto) 1.6 %; Lymphocytes # (auto) 2.05 K/uL (1.2-3.4); Mean Corpuscular Hemoglobin 26.8 pg (25.0-34.0); Mean Corpuscular Hgb Conc 30.6 g/dL (32.0-36.0); Mean Corpuscular Volume 87.3 fL (80.0-100.0); Mean Platelet Volume 8.9 fL (9.4-12.3); Monocytes # (auto) 1.56 K/uL (0.24-0.82); Monocytes % (auto) 10.6 %; Neutrophils # (auto) 10.33 K/uL (1.4-6.5); Neutrophils % (auto) 70.5 %; Platelet Count 477 K/uL (130-400); RDW Coefficient of Variation 15.2 % (11.5-14.5); RDW Standard Deviation 48.6 fL (36.4-46.3); Red Blood Count 4.11 M/uL (3.93-5.22); White Blood Count 14.65 K/ul (4.8-10.8)
--- NOTE | 2022-05-31 15:47 | Emergency Department Note ---
Impression & Plan Diverticulitis large intestine, Abdominal pain, LLQ, Chronic respiratory failure with hypoxia and hypercapnia, Colonic diverticular abscess, Diabetes mellitus, type 2 ED Provider Note Provider: Chuck Marin MD DATE OF SERVICE: 05/31/2022 CHIEF COMPLAINT: Left lower quadrant pain, abnormal CT HISTORY OF PRESENT ILLNESS: Patient is a 81-year-old female history of diabetes, CKD, COPD on chronic oxygen, CHF, atrial fibrillation with watchman, and adrenal insufficiency presenting here today after a CT report from several days ago. Patient approximate 3 days ago on Friday had a CT results reported evidence of diverticular abscess is 3 x 2 cm. Sent here by primary doctor. Not been on antibiotics and most a month since outpatient Cipro Flagyl. States she is had some lower abdominal pain and left lower quadrant really consistently for the last several weeks to months. Not been eating well and losing some weight. Denies nausea or vomiting or fevers. Denies trauma. States her breathing is at baseline. REVIEW OF SYSTEMS: A total of 10 review of systems was obtained and negative except as stated above in the HPI. PAST MEDICAL HISTORY: As noted above MEDICATIONS: Reviewed home medication list SOCIAL HISTORY: Lives at home PHYSICAL EXAM: GENERAL: alert and oriented in no acute distress on stretcher Head: normocephalic and atraumatic EYES: No injection, discharge or icterus. NECK: Trachea midline. Supple. ENT: Mucous membranes pink and moist. LUNGS: Airway patent. No retractions. Breath sounds with some slight diminishment at the bases on chronic oxygen HEART: Regular rate and rhythm. No chest wall tenderness ABDOMEN: Soft with some mild tenderness in the left lower quadrant. Not peritoneal. SKIN: Acyanotic, warm, dry EXTREMITIES: Without tenderness and trace bilateral lower extremity edema. NEUROLOGICAL: No focal deficits. No aphasia. No facial droop or slurred speech. Ambulatory. Patient's laboratory studies and imaging reviewed. Differential includes Appendicitis, infections, diverticulitis, UTI, obstruction, mesenteric ischemia, aortic pathology, inflammatory bowel disease, renal colic, PUD, pancreatitis, biliary pathology, hernia, volvulus, constipation, as well as other pathologies. IMPRESSION/MEDICAL DECISION MAKING: Patient presents outpatient CT from several days ago showing diverticular abscess. Fairly small in size and likely would respond to IV antibiotics. Given several days of lack of antibiotic therapy and continued pain we will complete a CT today without contrast (she requires premedication strategy for IV contrast) to see if there is any other significant worsening or change. Basic blood work obtained. Given a dose of Zosyn for antibiotic coverage at this time. She does not appear grossly septic on clinical exam and does not appear peritoneal. Patient's blood work does show some leukocytosis likely consistent with her diverticular infection. Labs otherwise without significant abnormality. CT here with evidence of advanced diverticulitis but no clear abscess. Did have a contrasted scan after allergy steroid and Benadryl preparation several days ago with that show a very small less than 3 cm abscess. No evidence of perforation. Scan today questions possible involvement of the bladder fistula but the image results from the other day do not mention this and again that was the contrasted scan. At this point believe she needs come in for IV antibiotics and further monitoring and work-up. Patient agreeable. Hospitalist contacted. Urinalysis pending. DIAGNOSIS: Diverticulitis, left lower quadrant pain DISPOSITION: Hospitalist will evaluate Patient was agreeable with this plan. Past Med/Surg History Medical History Aortic valve stenosis, mild Asthma Chris-tachy syndrome Chronic atrial fibrillation Chronic diastolic CHF (congestive heart failure) Chronic HFrEF (heart failure with reduced ejection fraction) Chronic respiratory failure with hypoxia and hypercapnia COPD (chronic obstructive pulmonary disease) Diabetes mellitus, type 2 Esophageal reflux Glaucoma of both eyes Hyperlipidemia Hypertension Lower GI bleed NICM (nonischemic cardiomyopathy) On home oxygen therapy JORDAN (obstructive sleep apnea) Sleep apnea Subclinical hyperthyroidism Subepithelial mass of stomach Surgical History H/O colonoscopy History of appendectomy History of cardiac cath History of cholecystectomy History of dilatation and curettage History of esophagogastroduodenoscopy (EGD) History of incisional hernia repair History of tooth extraction Hx of small bowel obstruction Nausea and vomiting after administration of anesthetic agent Presence of Watchman left atrial appendage closure device Status post tonsillectomy Status post tubal ligation Family History Mother Breast cancer Father Heart disease Brother COPD (chronic obstructive pulmonary disease) Aunt Diabetes Son JORDAN (obstructive sleep apnea) Daughter Asthma Other No family history of adverse response to anesthesia No pertinent family history in first degree relatives 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 Smoking Status: Never smoker 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); Hx Alcohol Use: No Hx Substance Use: No Preferred Language: Croatian Communication Ability: Effective 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 Beliefs That Will Affect Care: None marital status: / Current Living Situation: Alone Feels Safe at Home: Yes Assistive Devices: Glasses and Oxygen - Continuous Allergies Allergies Allergy/AdvReac Type Severity Reaction Status Date / Time salmon oil Allergy Severe HIVES-REDDENED Verified 05/20/22 13:03 ALL OVER Iodinated Contrast Media Allergy Intermediate HIVES-GI Verified 05/20/22 13:03 SYMPTOMS valsartan Allergy Intermediate FAST HEART Verified 05/20/22 13:03 BEAT bupropion AdvReac Mild GI SYMPTOMS Verified 05/20/22 13:03 enalapril AdvReac Mild GI SYMPTOMS Verified 05/20/22 13:03 escitalopram AdvReac Mild GI SYMPTOMS Verified 05/20/22 13:03 metoprolol AdvReac Mild LOWERS Verified 05/20/22 13:03 PULSE RATE verapamil AdvReac Mild GI UPSET, Verified 05/20/22 13:03 fast heart rate Home Meds Home Medications Medication Instructions Recorded Confirmed atorvastatin 40 mg tablet 40 mg PO HS 06/23/19 05/31/22 cholecalciferol (vitamin D3) 25 1,000 unit PO QAM 06/23/19 05/31/22 mcg (1,000 unit) capsule (Vitamin D3) docusate sodium 100 mg capsule 100 mg PO QAM 06/23/19 05/31/22 omeprazole 20 mg capsule,delayed 20 mg PO BID 06/23/19 05/31/22 release albuterol sulfate 2.5 mg/3 mL 2.5 mg inhalation BID PRN 09/25/19 05/31/22 (0.083 %) solution for nebulization .WORSENING ASTHMA bimatoprost 0.01 % eye drops 1 drp OPB HS 09/25/19 05/31/22 (Lumigan) brinzolamide 1 % eye 1 drp OPB BID 09/25/19 05/31/22 drops,suspension (Azopt) polyethylene glycol 3350 17 17 g PO BID PRN Constipation 09/25/19 05/31/22 gram/dose oral powder (Miralax) ferrous sulfate 325 mg (65 mg 325 mg PO QAM 02/23/20 05/31/22 iron) tablet (iron) glimepiride 4 mg tablet 2 mg PO QAM 02/23/20 05/31/22 multivitamin 1 tab PO QAM 06/02/20 05/31/22 hydrocodone 5 mg-acetaminophen 325 1 tab PO Q6H PRN Pain 07/28/20 05/31/22 mg tablet lactobacillus combination no.4 3 3,000 mmu cells PO QAM 07/28/20 05/31/22 billion cell capsule (Probiotic) zafirlukast 20 mg tablet 20 mg PO QAM 09/11/20 05/31/22 aspirin 81 mg tablet,delayed 81 mg PO DAILY 02/05/21 05/31/22 release (Kenzie Low Dose Aspirin) lisinopril 2.5 mg tablet 2.5 mg PO DAILY 02/05/21 05/31/22 ipratropium 20 mcg-albuterol 100 1 puff inhalation QID 04/09/21 05/31/22 mcg/actuation mist for inhalation (Combivent Respimat) potassium chloride 20 mEq 20 meq PO DAILY 04/09/21 05/31/22 tablet,extended release(part/cryst) (Klor-Con M) metoprolol tartrate 25 mg tablet See Rx Instructions .Route .COMPLEX 07/05/21 05/31/22 dicyclomine 20 mg tablet 20 mg PO BID 01/14/22 05/31/22 spironolactone 25 mg tablet 12.5 mg PO DAILY 01/14/22 05/31/22 sertraline 25 mg tablet 25 mg PO DAILY 03/13/22 05/31/22 Previous Rx's Medication Instructions Recorded promethazine 25 mg tablet 25 mg PO Q6H PRN nausea and 06/16/20 vomiting #60 tabs tiotropium bromide 1.25 2 puff inhalation DAILY #1 inhaler 09/10/21 mcg/actuation mist for inhalation (Spiriva Respimat) methimazole 5 mg tablet 2.5 mg PO DAILY #15 tabs 01/15/22 albuterol sulfate 90 mcg/actuation 2 puff inhalation QID PRN 05/03/22 aerosol inhaler (Ventolin HFA) Shortness Of Breath #6.7 grams Results & Data (ED) Vital Signs Vital Signs - 24 hr 05/31/22 14:13 05/31/22 15:18 Temperature 35.9 C L Temperature Source Temporal Artery Scan Pulse Rate 84 Pulse Rate [Finger] 104 H Pulse Rhythm [Finger] Regular Pulse Strength [Finger] Normal Respiratory Rate 20 18 Respiratory Effort / Characteristics Non-Labored Non-Labored Respiratory Depth Normal Normal Respiratory Pattern Regular Blood Pressure 105/61 Blood Pressure [Left Arm] 116/62 Blood Pressure Mean 75 Blood Pressure Mean [Left Arm] 80 Blood Pressure Position [Left Arm] Lying Pulse Oximetry 98 98 Oxygen Delivery Method Room Air Room Air Sepsis Recent Fever Within 48 Hours No Sepsis New/Unexplained Change in Mental Status N/A Sepsis Action Taken by Nursing No Action Required Laboratory Data Result diagrams: 05/31/22 15:08 05/31/22 15:08 Lab Results 05/31/22 05/31/22 05/31/22 Range/Units 15:08 15:08 15:08 WBC 14.65 H (4.8-10.8) K/ul RBC 4.11 (3.93-5.22) M/uL Hgb 11.0 L (12.0-16.0) g/dl Hct 35.9 (34.1-44.9) % MCV 87.3 (80.0-100.0) fL MCH 26.8 (25.0-34.0) pg MCHC 30.6 L (32.0-36.0) g/dL RDW Std Deviation 48.6 H (36.4-46.3) fL RDW Coeff of Jesika 15.2 H (11.5-14.5) % Plt Count 477 H (130-400) K/uL MPV 8.9 L (9.4-12.3) fL Immature Gran % (Auto) 1.6 % Neut % (Auto) 70.5 % Lymph % (Auto) 14.0 % Jones % (Auto) 10.6 % Eos % (Auto) 2.9 % Baso % (Auto) 0.4 % Neut # (Auto) 10.33 H (1.4-6.5) K/uL Lymph # (Auto) 2.05 (1.2-3.4) K/uL Jones # (Auto) 1.56 H (0.24-0.82) K/uL Eos # (Auto) 0.42 (0-0.50) K/uL Baso # (Auto) 0.06 (0-0.2) K/uL Immature Gran # (Auto) 0.23 H (0.00-0.02) K/uL PT 10.9 (9.0-12.0) Seconds INR 1.0 (0.9-1.1) APTT 27.5 (21.0-31.0) Seconds PTT Ratio 1.0 Sodium 131 L (136-145) mmol/L Potassium 4.9 (3.5-5.1) mmol/L Chloride 96 L (98-107) mmol/L Carbon Dioxide 28 (21-32) mmol/L Anion Gap 7 (3-11) BUN 21 (6-23) mg/dl Creatinine 0.94 (0.6-1.2) mg/dl Est Cr Clr Drug Dosing 53.6 ml/min Est GFR ( Amer) 65.0 ml/min Est GFR (Non-Af Amer) 56.1 ml/min BUN/Creatinine Ratio 22.3 H (10-20) Glucose 148 H (70-99(Fasting)) mg/dl Calcium 9.6 (8.5-10.1) mg/dl Total Bilirubin 0.4 (0.2-1.0) mg/dl AST 16 (13-39) U/L ALT 12 (7-52) U/L Alkaline Phosphatase 105 H (34-104) U/L Total Protein 7.4 (6.0-8.3) gm/dl Albumin 3.5 (3.4-5.0) gm/dl Globulin 3.9 (2.5-4.0) gm/dl Albumin/Globulin Ratio 0.9 (0.9-2) Administered Medications Discontinued Medications Piperacillin Sod/Tazobactam Sod (Zosyn) 4.5 gm in 120 mls @ 240 mls/hr IV NOW ONE Stop: 05/31/22 15:35 Last Infusion: 05/31/22 16:03 Dose: 0 mls/hr Documented By: Admin: 05/31/22 15:26 Dose: 240 mls/hr Documented By: LEXA Imaging Data Radiologist's Impression: Abdomen/Pelvis CT 05/31/22 15:05 CT SCAN OF THE ABDOMEN AND PELVIS WITHOUT IV CONTRAST CLINICAL HISTORY: Left lower quadrant abdominal pain. Reported recent history of diverticulitis. COMPARISON STUDY: Abdominal CT dated 05/10/2021. TECHNIQUE: CT scan of the abdomen and pelvis is performed from the lung bases to the proximal femora. Images are reviewed in the axial, sagittal, and coronal planes. IV contrast was not administered for this examination. Note that the examination is suboptimal without oral and IV contrast. A dose lowering technique was utilized adhering to the principles of ALARA. CT DOSE: 1144.61 mGycm FINDINGS: Lung bases: The heart is enlarged and without pericardial effusion. The coronary arteries and mitral annulus are densely calcified. The lung bases are clear noting bibasilar scarring/atelectasis. Liver: The unenhanced liver is normal in size, contour, and attenuation. There is no intrahepatic biliary ductal dilatation. Gallbladder: Surgically absent. Spleen: Normal in size and attenuation. Pancreas: The unenhanced pancreas is atrophic and grossly unremarkable. Adrenal glands: Bilateral adrenal adenomas measuring up to 1.9 cm are unchanged from previous. Kidneys: The unenhanced kidneys demonstrate cortical atrophy and are without hydronephrosis. There are no renal calculi identified. A 2.3 cm exophytic cyst arises from the right upper pole. Abdominal vasculature: The abdominal aorta is normal in course and caliber noting moderate to advanced atherosclerotic calcification. Bowel: There is postoperative change from a sigmoid colon resection with colocolonic anastomosis. No bowel obstruction is seen. Residual enteric contrast is noted in the colon. There is wall thickening with pericolonic inflammation and trace fluid involving the sigmoid colon consistent with acute diverticulitis. No organized fluid collection is seen to indicate abscess on this unenhanced examination. The appendix is not visualized. Peritoneum: There is no intraperitoneal free air or abdominal ascites. There is a fat-containing supraumbilical hernia seen on axial image #225. Lymphadenopathy: None. Pelvic viscera: The bladder is largely decompressed and contains a large amount of intraluminal gas. Findings are suspicious for a colovesicular fistula on the sagittal reformats. The uterus is normal as visualized. No adnexal lesion is seen. Skeletal structures: The skeletal structures are osteopenic. There is mild lumbosacral spondylosis. Sclerotic change is noted in the sacroiliac joints and pubic symphysis. No lytic or blastic lesions are seen. IMPRESSION: 1. Advanced colonic diverticulosis with evidence of severe acute sigmoid diverticulitis. 2. No intraperitoneal free air is seen and there is no organized fluid collection identified to suggest abscess on this unenhanced examination. 3. There is a large amount of intraluminal gas within the bladder with findings suspicious for a colovesicular fistula. Clinical correlation will be required. 4. Status post sigmoid colon resection with colocolonic anastomosis. No bowel obstruction is seen. 5. Additional findings as above. ACT 112: Negative or not required by law. Electronically signed by: Pepito Guillen M.D. 05/31/2022 4:33 PM Discharge Plan Visit Data Chief Complaint: Abnormal Labs/Diagnostic Testing Stated Complaint: REF BY , ABNORMAL TEST RESULTS ED Provider: Chuck Marin Discharge Problem: Diverticulitis large intestine, Abdominal pain, LLQ, Chronic respiratory failure with hypoxia and hypercapnia, Colonic diverticular abscess, Diabetes mellitus, type 2 Patient Disposition: Being Evaluated by Hospitalist Forms Stand Alone Forms: [facility] Prescriptions Prescriptions: No Action methimazole 5 mg tablet 2.5 mg PO DAILY Qty: 15 1RF albuterol sulfate [Ventolin HFA] 90 mcg/actuation HFA aerosol inhaler 2 puff INHALATION QID PRN (Reason: Shortness Of Breath) Qty: 6.7 11RF Spiriva Respimat 1.25 mcg/actuation mist 2 puff inhalation DAILY Qty: 1 11RF sertraline 25 mg tablet 25 mg PO DAILY aspirin [Kenzie Low Dose Aspirin] 81 mg tablet,delayed release (DR/EC) 81 mg PO DAILY lisinopril 2.5 mg tablet 2.5 mg PO DAILY dicyclomine 20 mg tablet 20 mg PO BID spironolactone 25 mg tablet 12.5 mg PO DAILY multivitamin Tablet 1 tab PO QAM promethazine 25 mg Tablet 25 mg PO Q6H PRN (Reason: nausea and vomiting) Qty: 60 0RF atorvastatin 40 mg Tablet 40 mg PO HS docusate sodium 100 mg Capsule 100 mg PO QAM omeprazole 20 mg Capsule,Delayed Release(Dr/Ec) 20 mg PO BID cholecalciferol (vitamin D3) [Vitamin D3] 1,000 unit Capsule 1,000 unit PO QAM ferrous sulfate [iron] 325 mg (65 mg iron) tablet 325 mg PO QAM glimepiride 4 mg tablet 2 mg PO QAM Rx Instructions: checks sugar first and if below 100 holds zafirlukast 20 mg tablet 20 mg PO QAM albuterol sulfate 2.5 mg /3 mL (0.083 %) Solution For Nebulization 2.5 mg INHALATION BID PRN (Reason: .WORSENING ASTHMA) brinzolamide [Azopt] 1 % Drops,Suspension 1 drp OPB BID Lumigan 0.01 % drops 1 drp OPB HS polyethylene glycol 3350 [Miralax] 17 gram/dose Powder 17 g PO BID PRN (Reason: Constipation) Rx Instructions: TAKE 17G BY MOUTH 2 TIMES A DAY. ONE CAPFULL IN JUICE, TO EFFECT 1 STOOL PER DAY. hydrocodone-acetaminophen 5-325 mg Tablet 1 tab PO Q6H PRN (Reason: Pain) Probiotic 3 billion cell Capsule 3,000 mmu cells PO QAM metoprolol tartrate 25 mg Tablet See Rx Instructions .ROUTE .COMPLEX Rx Instructions: 25 mg orally ;1 tab AM and 1/2 tab PM potassium chloride [Klor-Con M20] 20 mEq tablet,ER particles/crystals 20 meq PO DAILY Combivent Respimat 20-100 mcg/actuation mist 1 puff INHALATION QID Referrals Referrals: Marcela Pinto MD [Primary Care Provider] -
[2022-05-31 15:53] LABS: Albumin Globulin Ratio 0.9 (0.9-2); Albumin Level 3.5 gm/dl (3.4-5.0); BUN Creatinine Ratio 22.3 (10-20); Bilirubin,Total 0.4 mg/dl (0.2-1.0); Calcium 9.6 mg/dl (8.5-10.1); Creatinine Clr Calc Pharmacy 53.6 ml/min; Est GFR (Non-African American) 56.1 ml/min; Globulin 3.9 gm/dl (2.5-4.0); Potassium 4.9 mmol/L (3.5-5.1); Total Protein 7.4 gm/dl (6.0-8.3)
[2022-05-31 15:58] LABS: Partial Thromboplastin Time 27.5 Seconds (21.0-31.0); Prothrombin Time 10.9 Seconds (9.0-12.0)
--- NOTE | 2022-05-31 16:34 | CT Scan Report ---
CT SCAN OF THE ABDOMEN AND PELVIS WITHOUT IV CONTRAST CLINICAL HISTORY: Left lower quadrant abdominal pain. Reported recent history of diverticulitis. COMPARISON STUDY: Abdominal CT dated 05/10/2021. TECHNIQUE: CT scan of the abdomen and pelvis is performed from the lung bases to the proximal femora. Images are reviewed in the axial, sagittal, and coronal planes. IV contrast was not administered for this examination. Note that the examination is suboptimal without oral and IV contrast. A dose lower ing technique was utilized adhering to the principles of ALARA. CT DOSE: 1144.61 mGycm FINDINGS: Lung bases: The heart is enlarged and without pericardial effusion. The coronary arteries and mitral annulus are densely calcified. The lung bases are clear noting bibasilar scarring/atelectasis. Liver: The unenhanced liver is normal in size, contour, and attenuation. There is no intrahepatic luz iary ductal dilatation. Gallbladder: Surgically absent. Spleen: Normal in size and attenuation. Pancreas: The unenhanced pancreas is atrophic and grossly unremarkable. Adrenal glands: Bilateral adrenal adenomas measuring up to 1.9 cm are unchanged from previous. Kidneys: The unenhanced kidneys demonstrate cortical atrophy and are without hydronephrosis. There ar e no renal calculi identified. A 2.3 cm exophytic cyst arises from the right upper pole. Abdominal vasculature: The abdominal aorta is normal in course and caliber noting moderate to advance d atherosclerotic calcification. Bowel: There is postoperative change from a sigmoid colon resection with colocolonic anastomosis. No bowel obstruction is seen. Residual enteric contrast is noted in the colon. There is wall thickening with pericolonic inflammation and trace fluid involving the sigmoid colon consistent with acute diver ticulitis. No organized fluid collection is seen to indicate abscess on this unenhanced examination. The appendix is not visualized. Peritoneum: There is no intraperitoneal free air or abdominal ascites. There is a fat-containing supr aumbilical hernia seen on axial image #225. Lymphadenopathy: None. Pelvic viscera: The bladder is largely decompressed and contains a large amount of intraluminal gas. Findings are suspicious for a colovesicular fistula on the sagittal reformats. The uterus is normal a s visualized. No adnexal lesion is seen. Skeletal structures: The skeletal structures are osteopenic. There is mild lumbosacral spondylosis. S clerotic change is noted in the sacroiliac joints and pubic symphysis. No lytic or blastic lesions ar e seen. IMPRESSION: 1. Advanced colonic diverticulosis with evidence of severe acute sigmoid diverticulitis. 2. No intraperitoneal free air is seen and there is no organized fluid collection identified to sugge st abscess on this unenhanced examination. 3. There is a large amount of intraluminal gas within the bladder with findings suspicious for a colo vesicular fistula. Clinical correlation will be required. 4. Status post sigmoid colon resection with colocolonic anastomosis. No bowel obstruction is seen. 5. Additional findings as above. ACT 112: Negative or not required by law. Electronically signed by: Pepito Guillen M.D. 05/31/2022 4:33 PM
--- NOTE | 2022-05-31 17:02 | History & Physical Report ---
Date of Service May 31, 2022 Assessment & Plan (1) Diverticulitis large intestine: Plan: Ongoing symptoms for past 2 months. No improvement with course of oral antibiotics. History of recurrent diverticulitis with prior abscess - Admit to PCU - Continue IV Zosyn started in the ED - NPO for now - hold oral meds - Surgical consult - IVF - Daily labs (2) Colonic diverticular abscess: Plan: See Plan for #1 (3) Sepsis: Plan: Now with hypotension and tachycardia - meets sepsis criteria - Check lactate, CRP - NSS 500 cc bolus then another 1L at 60 cc/hr - monitor BP closely overnight, may need additional bolus PRN - Blood and urine cultures - Check chest x-ray with recent SOB and increased O2 requirement - Antibiotics per #1 (4) Diabetes mellitus, type 2: Plan: - Insulin sliding scale - Accuchecks Q6 hrs (5) COPD (chronic obstructive pulmonary disease): (6) Chronic HFrEF (heart failure with reduced ejection fraction): (7) JORDAN (obstructive sleep apnea): Plan: Continue nocturnal O2 (8) Chronic atrial fibrillation: (9) Subclinical hyperthyroidism: (10) Chronic respiratory failure with hypoxia and hypercapnia: (11) Hypertension: Plan Holding oral medications while NPO - will need to resume methimazole as soon as possible once taking po again. Pt seen and reviewed with collaborating physician, Dr. Gould. Plan of care discussed and as outlined above. Code status: Full code DVT prophylaxis: Edmundo Maria PA-C History of Present Illness Chief Complaint: Abnormal CT abd/pel, abdominal pain Primary Care Provider: Marcela Pinto MD This is an 81 y/o female with a history of DM2, CKD3a, pulmonary HTN, atrial fibrillation s/p Watchman procedure, recurrent diverticulitis, IBS, HTN, gastroparesis, GERD, COPD, chronic HFrEF, asthma, and obstructive sleep apnea who was referred to the ED today by her PCP after outpatient CT done earlier this week showed possible diverticular abscess. Pt was seen in PCP office on 05/13/22 for 1 month of LLQ pain and change in bowels. She took the home pack of cipro and metronidazole due to her hx of similar symptoms with diverticulitis but noted no improvement. PCP ordered a CT abd/pel with contrast for which pt was premedicated due to her hx of contrast allergy. This was done on Friday but results apparently didn't come back until today. Due to concern for abscess, she was referred to the ED for IV antibiotics and possible admission. Pt was admitted last April with diverticulitis and diverticular abscess. She was seen by surgery during this admission who recommended conservative management with IV antibiotics due to pt being high-risk for surgical intervention. Pt reports generalized abdominal discomfort with pain in the LLQ and suprapubic area. She had ongoing nausea and loss of appetite with one episode of emesis. Her family notes she has lost 32 lbs in the last five months, 10 lb of that within the past month. She denies fevers, chills, sweats/night sweats, chest pain. She has noted sensation of racing heart and more SOB today. Denies chest pain. Her baseline O2 requirement is 2L during the day and 4L at night. She has chronic back pain for which she uses hydrocodone with relief. Constant urge to urinate but when she goes it is only small amount. She denies fecaluria but has noted intermittent pneumaturia. No hematuria. She has been more fatigued and generally weak. Checking blood sugars at home - no recent sugars <80 or >200. Allergies Allergy/AdvReac Type Severity Reaction Status Date / Time salmon oil Allergy Severe HIVES-REDDENED Verified 05/20/22 13:03 ALL OVER Iodinated Contrast Media Allergy Intermediate HIVES-GI Verified 05/20/22 13:03 SYMPTOMS valsartan Allergy Intermediate FAST HEART Verified 05/20/22 13:03 BEAT bupropion AdvReac Mild GI SYMPTOMS Verified 05/20/22 13:03 enalapril AdvReac Mild GI SYMPTOMS Verified 05/20/22 13:03 escitalopram AdvReac Mild GI SYMPTOMS Verified 05/20/22 13:03 metoprolol AdvReac Mild LOWERS Verified 05/20/22 13:03 PULSE RATE verapamil AdvReac Mild GI UPSET, Verified 05/20/22 13:03 fast heart rate Home Medications Medication Instructions Recorded Confirmed Type atorvastatin 40 mg tablet 40 mg PO HS 06/23/19 05/31/22 History cholecalciferol (vitamin D3) 25 2,000 unit PO QAM 06/23/19 05/31/22 History mcg (1,000 unit) capsule (Vitamin D3) docusate sodium 100 mg capsule 100 mg PO QAM 06/23/19 05/31/22 History omeprazole 20 mg capsule,delayed 20 mg PO BID 06/23/19 05/31/22 History release albuterol sulfate 2.5 mg/3 mL 2.5 mg inhalation BID PRN 09/25/19 05/31/22 History (0.083 %) solution for nebulization .WORSENING ASTHMA bimatoprost 0.01 % eye drops 1 drp OPB HS 09/25/19 05/31/22 History (Lumigan) brinzolamide 1 % eye 1 drp OPB BID 09/25/19 05/31/22 History drops,suspension (Azopt) polyethylene glycol 3350 17 17 g PO BID PRN Constipation 09/25/19 05/31/22 History gram/dose oral powder (Miralax) ferrous sulfate 325 mg (65 mg 325 mg PO QAM 02/23/20 05/31/22 History iron) tablet (iron) glimepiride 4 mg tablet 2 mg PO QAM 02/23/20 05/31/22 History multivitamin 1 tab PO QAM 06/02/20 05/31/22 History promethazine 25 mg tablet 25 mg PO Q6H PRN nausea and 06/16/20 05/31/22 Rx vomiting #60 tabs hydrocodone 5 mg-acetaminophen 325 1 tab PO Q6H PRN Pain 07/28/20 05/31/22 History mg tablet lactobacillus combination no.4 3 3,000 mmu cells PO QAM 07/28/20 05/31/22 History billion cell capsule (Probiotic) zafirlukast 20 mg tablet 20 mg PO QAM 09/11/20 05/31/22 History aspirin 81 mg tablet,delayed 81 mg PO DAILY 02/05/21 05/31/22 History release (Kenzie Low Dose Aspirin) lisinopril 2.5 mg tablet 2.5 mg PO DAILY 02/05/21 05/31/22 History ipratropium 20 mcg-albuterol 100 1 puff inhalation QID 04/09/21 05/31/22 History mcg/actuation mist for inhalation (Combivent Respimat) potassium chloride 20 mEq 20 meq PO DAILY 04/09/21 05/31/22 History tablet,extended release(part/cryst) (Klor-Con M) metoprolol tartrate 25 mg tablet See Rx Instructions .Route .COMPLEX 07/05/21 05/31/22 History tiotropium bromide 1.25 2 puff inhalation DAILY #1 inhaler 09/10/21 05/31/22 Rx mcg/actuation mist for inhalation (Spiriva Respimat) dicyclomine 20 mg tablet 20 mg PO DAILY 01/14/22 05/31/22 History spironolactone 25 mg tablet 12.5 mg PO 3XWK 01/14/22 05/31/22 History methimazole 5 mg tablet 2.5 mg PO DAILY #15 tabs 01/15/22 05/31/22 Rx sertraline 25 mg tablet 25 mg PO DAILY 03/13/22 05/31/22 History albuterol sulfate 90 mcg/actuation 2 puff inhalation QID PRN 05/03/22 05/31/22 Rx aerosol inhaler (Ventolin HFA) Shortness Of Breath #6.7 grams furosemide 40 mg tablet 40 mg PO BID 05/31/22 05/31/22 History ondansetron 8 mg disintegrating 8 mg PO Q8H PRN Nausea And Vomiting 05/31/22 05/31/22 History tablet Past Med/Surg History Medical History Aortic valve stenosis, mild Asthma Chris-tachy syndrome Chronic atrial fibrillation Chronic diastolic CHF (congestive heart failure) Chronic HFrEF (heart failure with reduced ejection fraction) Chronic respiratory failure with hypoxia and hypercapnia COPD (chronic obstructive pulmonary disease) Diabetes mellitus, type 2 Esophageal reflux Glaucoma of both eyes Hyperlipidemia Hypertension Lower GI bleed NICM (nonischemic cardiomyopathy) On home oxygen therapy 2L N/C at all times and 4 L N/C at night JORDAN (obstructive sleep apnea) Sleep apnea Subclinical hyperthyroidism Subepithelial mass of stomach Surgical History H/O colonoscopy History of appendectomy History of cardiac cath History of cholecystectomy History of dilatation and curettage History of esophagogastroduodenoscopy (EGD) History of incisional hernia repair History of tooth extraction Hx of small bowel obstruction Nausea and vomiting after administration of anesthetic agent Presence of Watchman left atrial appendage closure device Status post tonsillectomy Status post tubal ligation Family History Mother Breast cancer Father Heart disease Brother COPD (chronic obstructive pulmonary disease) Aunt Diabetes Son JORDAN (obstructive sleep apnea) Daughter Asthma Other No family history of adverse response to anesthesia No pertinent family history in first degree relatives 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 Smoking Status: Never smoker 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); Hx Alcohol Use: No Hx Substance Use: No Preferred Language: Ukrainian Communication Ability: Effective 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: No Beliefs That Will Affect Care: None marital status: / Current Living Situation: Alone Feels Safe at Home: Yes Assistive Devices: Glasses and Oxygen - Continuous Review of Systems Review of Systems: All systems reviewed & are unremarkable except as noted in HPI & below Constitutional: + fatigue, + anorexia and + weight loss; no fever, no chills and no sweats Eyes: no diplopia Ear, Nose, Mouth, Throat: no nasal congestion and no sore throat Respiratory: + cough (occasional non-productive) and + dyspnea on exertion; no wheezing Cardiovascular: + palpitations and + lightheadedness (with position change at times); no chest pain, no syncope and no edema Gastrointestinal: as per Subjective / HPI Genitourinary: as per Subjective / HPI Musculoskeletal: + back pain (chronic) Integumentary: no yellowing of the skin Neurologic: + generalized weakness; no syncope and no headache(s) Psychiatric: no depression and no anxiety Physical Exam Constitutional: well developed and well nourished; no acute distress Eyes: + anicteric sclerae Neck: trachea midline Respiratory: no respiratory distress and no labored breathing Auscultation: lungs clear to auscultation bilaterally; no rales, no rhonchi and no wheezes Cardiovascular: Rate/Rhythm: + tachycardic Vessels: radial pulses present Extremities: no pedal edema Gastrointestinal (Abdomen): Inspection/Auscultation: normal bowel sounds; abdomen not distended Percussion/Palpation: + abdomen tender (mild generalized, moderate LLQ to deep palpation), abdomen soft and + tympanic to percussion; no guarding Musculoskeletal: Head/Neck/Chest: normocephalic, head atraumatic and neck supple Skin: no jaundice Neurologic: moves all extremities; no focal motor deficits and not confused Psychiatric: A+Ox3, euthymic affect Results & Data Results & Data ([facility]) Vital Signs (Past 12 Hours) Vital Signs Temp Pulse Pulse Resp BP BP Pulse Ox 05/31/22 15:18 104 H 18 116/62 98 05/31/22 14:13 35.9 C L 84 20 105/61 98 O2 Del Method 05/31/22 15:18 Room Air 05/31/22 14:13 Room Air Laboratory Results Laboratory Results - last 24 hr 05/31/22 05/31/22 05/31/22 15:08 15:08 15:08 WBC 14.65 H RBC 4.11 Hgb 11.0 L Hct 35.9 MCV 87.3 MCH 26.8 MCHC 30.6 L RDW Std Deviation 48.6 H RDW Coeff of Jesika 15.2 H Plt Count 477 H MPV 8.9 L Immature Gran % (Auto) 1.6 Neut % (Auto) 70.5 Lymph % (Auto) 14.0 [place] % (Auto) 10.6 Eos % (Auto) 2.9 Baso % (Auto) 0.4 Neut # (Auto) 10.33 H Lymph # (Auto) 2.05 [place] # (Auto) 1.56 H Eos # (Auto) 0.42 Baso # (Auto) 0.06 Immature Gran # (Auto) 0.23 H PT 10.9 INR 1.0 APTT 27.5 PTT Ratio 1.0 Sodium 131 L Potassium 4.9 Chloride 96 L Carbon Dioxide 28 Anion Gap 7 BUN 21 Creatinine 0.94 Est Cr Clr Drug Dosing 53.6 Est GFR ( Amer) 65.0 Est GFR (Non-Af Amer) 56.1 BUN/Creatinine Ratio 22.3 H Glucose 148 H Calcium 9.6 Total Bilirubin 0.4 AST 16 ALT 12 Alkaline Phosphatase 105 H Total Protein 7.4 Albumin 3.5 Globulin 3.9 Albumin/Globulin Ratio 0.9 Urine Color Urine Appearance Urine pH Ur Specific [place] Urine Protein Urine Glucose (UA) Urine Ketones Urine Blood Urine Nitrite Urine Bilirubin Urine Urobilinogen Ur Leukocyte Esterase SARS-CoV-2, RNA, NAAT 05/31/22 05/31/22 15:55 16:45 WBC RBC Hgb Hct MCV MCH MCHC RDW Std Deviation RDW Coeff of [place] Plt Count MPV Immature Gran % (Auto) Neut % (Auto) Lymph % (Auto) [place] % (Auto) Eos % (Auto) Baso % (Auto) Neut # (Auto) Lymph # (Auto) [place] # (Auto) Eos # (Auto) Baso # (Auto) Immature Gran # (Auto) PT INR APTT PTT Ratio Sodium Potassium Chloride Carbon Dioxide Anion Gap BUN Creatinine Est Cr Clr Drug Dosing Est GFR ( Amer) Est GFR (Non-Af Amer) BUN/Creatinine Ratio Glucose Calcium Total Bilirubin AST ALT Alkaline Phosphatase Total Protein Albumin Globulin Albumin/Globulin Ratio Urine Color Pending Urine Appearance Pending Urine pH Pending Ur Specific [place] Pending Urine Protein Pending Urine Glucose (UA) Pending Urine Ketones Pending Urine Blood Pending Urine Nitrite Pending Urine Bilirubin Pending Urine Urobilinogen Pending Ur Leukocyte Esterase Pending SARS-CoV-2, RNA, NAAT Pending Diagnostic Findings CT Abd/Pel with contrast 05/28/22 (done outpatient) - Colonic diverticulosis. There is colonic wall thickening and pericolonic fat stranding within the midportion of the sigmoid colon. There is suggestion of a diverticular abscess measuring 3.12 x 2.3 cm. Stable left adrenal nodule CT Abd/Pel without contrast 05/31/22 - IMPRESSION: 1. Advanced colonic diverticulosis with evidence of severe acute sigmoid diverticulitis. 2. No intraperitoneal free air is seen and there is no organized fluid collection identified to suggest abscess on this unenhanced examination. 3. There is a large amount of intraluminal gas within the bladder with findings suspicious for a colovesicular fistula. Clinical correlation will be required. 4. Status post sigmoid colon resection with colocolonic anastomosis. No bowel obstruction is seen. 5. Additional findings as above. Medications Administered Discontinued Medications Piperacillin Sod/Tazobactam Sod (Zosyn) 4.5 gm in 120 mls @ 240 mls/hr IV NOW ONE Stop: 05/31/22 15:35 Last Infusion: 05/31/22 16:03 Dose: 0 mls/hr Documented By: Admin: 05/31/22 15:26 Dose: 240 mls/hr Documented By: LEXA Supervising Physician Co-Signing Physician Notes Attending Addendum: care coordinated with [] please refer to her notes for full details, I agree with her notes patient seen and examined, records reviewed by myself as well on exam, patient [] no other symptoms VS noted and reviewed oriented , not in distress, speaks in sentences with no effort nor accessory muscle use normal rate, regular rhythm, no murmurs clear breath sounds bilaterally non distended, soft, nontender no bipedal edema, erythema, warmth no neuro deficits WBC Hg Crea ASSESSMENT AND PLAN other diagnoses and plan of care as per [] Carlos Gould MD (1) COPD (chronic obstructive pulmonary disease) COPD type: COPD with acute exacerbation Qualified Code(s): J44.1 - Chronic obstructive pulmonary disease with (acute) exacerbation (2) Diverticulitis large intestine Diverticulitis bleeding: without bleeding Diverticulitis complication: with abscess Qualified Code(s): K57.20 - Diverticulitis of large intestine with perforation and abscess without bleeding
[2022-05-31 17:21] LABS: Appearance Urine Turbid (Clear); Bacteria Urine Automated 1+ (Negative); Bilirubin Urine Negative (Negative); Blood Urine 3+ (Negative); Color Urine Orange; Epithelial Cell Urine Auto >30 /lpf (0-5); Glucose Urine UA Negative (Negative); Ketones Urine Trace (Negative); Leukocyte Esterase Urine 3+ (Negative); Nitrite Urine Negative (Negative); Protein Urine 3+ (Negative); RBC Urine Automated >30 /hpf (0-4); Urobilinogen Urine Negative (Negative); WBC Urine Automated >30 /hpf (0-5)
[2022-05-31 17:34] LABS: Cast Urine Automated 0 /lpf (0-5)
[2022-05-31] MEDS ORDERED: SODIUM CHLORIDE 0.9% 500 ML IV SCH (18:15)
[2022-05-31] MEDS ORDERED: MoRPHine SULFATE 2 MG/ML CARP ONE (19:40)
--- NOTE | 2022-05-31 20:31 | XRay Report ---
XR chest 2V PA/lateral HISTORY: Shortness of breath, increased O2 requirement COMPARISON: Chest 06/11/2021. FINDINGS: No pneumothorax. No pleural effusions. A few left basilar linear densities likely represent ing subsegmental atelectasis or scarring. This is similar to the prior study. Otherwise, no new focal lung consolidations to suggest pneumonia. No evidence for pulmonary edema. The heart remains mildly enlarged. An atrial septal closure device is noted. IMPRESSION: Stable cardiomegaly. Otherwise, no acute process within the chest ACT 112: Negative or not required by law. Electronically signed by: Greg Waggoner M.D. 05/31/2022 8:29 PM
[2022-05-31] MEDS ORDERED: ACETAMINOPHEN 1,000 MG/100 ML VIAL IV PRN (20:50)
[2022-05-31] MEDS ORDERED: ONDANSETRON INJ 2 MG/ML 2 ML VIAL IV PRN (20:50)
[2022-05-31] MEDS ORDERED: SODIUM CHLORIDE 0.9% 1000ML 1,000 ML IV SCH (20:50)
[2022-05-31] MEDS ORDERED: ALBUTEROL HFA 8 GM INHALER INH PRN (20:50)
[2022-05-31] MEDS ORDERED: IPRATROPIUM BROMIDE/ALBUTEROL respimat INH INH SCH (21:00)
[2022-05-31] MEDS: PIPERACILLIN/TAZOBACTAM 3.375 GM in DEXTROSE 5% 100 ML IV SCH (22:10)
[2022-05-31] MEDS: MoRPHine SULFATE 2 MG/ML CARP IV PRN (23:53)
[2022-06-01] MEDS: BRINZOLAMIDE (AZOPT) OPS 10 ML BTL OPB SCH ×3 (01:48→21:41)
[2022-06-01] MEDS: PIPERACILLIN/TAZOBACTAM 3.375 GM in DEXTROSE 5% 100 ML IV SCH ×3 (05:51→21:40)
[2022-06-01 06:14] LABS: Basophils # (auto) 0.06 K/uL (0-0.2); Basophils % (auto) 0.7 %; Eosinophils # (auto) 0.55 K/uL (0-0.50); Eosinophils % (auto) 6.1 %; Hematocrit (blood only) 30.6 % (34.1-44.9); Hemoglobin 9.4 g/dl (12.0-16.0); Immature Granulocytes # (auto) 0.16 K/uL (0.00-0.02); Immature Granulocytes % (auto) 1.8 %; Lymphocytes # (auto) 2.02 K/uL (1.2-3.4); Lymphocytes % (auto) 22.5 %; Mean Corpuscular Hemoglobin 26.7 pg (25.0-34.0); Mean Corpuscular Hgb Conc 30.7 g/dL (32.0-36.0); Mean Corpuscular Volume 86.9 fL (80.0-100.0); Mean Platelet Volume 9.1 fL (9.4-12.3); Monocytes # (auto) 1.34 K/uL (0.24-0.82); Monocytes % (auto) 14.9 %; Neutrophils # (auto) 4.85 K/uL (1.4-6.5); Platelet Count 386 K/uL (130-400); RDW Coefficient of Variation 15.5 % (11.5-14.5); RDW Standard Deviation 48.9 fL (36.4-46.3); Red Blood Count 3.52 M/uL (3.93-5.22); White Blood Count 8.98 K/ul (4.8-10.8)
[2022-06-01 06:37] LABS: BUN Creatinine Ratio 19.1 (10-20); Calcium 8.7 mg/dl (8.5-10.1); Creatinine Clr Calc Pharmacy 55.6 ml/min; Est GFR (African American) 69.5 ml/min; Est GFR (Non-African American) 59.9 ml/min; Potassium 4.7 mmol/L (3.5-5.1)
[2022-06-01] MEDS: MoRPHine SULFATE 2 MG/ML CARP IV PRN ×3 (07:06→19:26)
[2022-06-01] MEDS: Albuterol HFA 8 GM Inhaler (Combivent Respimat P&T Subs) INH SCH ×4 (07:19→19:12)
[2022-06-01] MEDS: Ipratropium HFA Inhaler (Combivent Respimat P&T Subs) INH SCH ×4 (07:19→19:12)
[2022-06-01] MEDS: UMECLIDINIUM BROMIDE 62.5MCG/BLISTER 7 PUFFS/INHALER INH SCH (08:24)
--- NOTE | 2022-06-01 11:22 | Surgery Consultation ---
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 Would continue IV antibiotics. Due to her multiple other issues, she is not a surgical candidate at this institution. If she worsens, would recommend transfer. Consider urology evaluation to confirm colovesical fistula. Currently, no indication for urgent surgical intervention. Will follow. History of Present Illness Reason for Consultation: diverticulitis, recurrent with possible colovesical fistula Requesting Physician: Carlos Gould MD Attending Physician: Carlos Gould MD History of Present Illness 81-year-old woman with multiple other medical issues who presents to the emergency room with recurrent diverticulitis. She has been dealing with diverticulitis for the past few years. She has been admitted multiple times with severe sigmoid diverticulitis as well as diverticular abscesses. Each time she has not been felt to be a surgical candidate. She states she was evaluated by surgery at 1 point and told she would need a total colectomy because of the extensive nature of her diverticuli. She presents today as she continues to have left lower quadrant pain and a change in bowel habits. She did try outpatient antibiotics with ciprofloxacin and metronidazole but did not have any improvement. The pain is located in the left lower quadrant. It is of moderate intensity. She is still able to tolerate p.o. intake. She denies any nausea or vomiting. The pain is somewhat worse with movement. There is no radiation. It is similar to her prior episodes. She does not note any frequent urinary tract infections or any change in her urination. She does note that she has been urinating less than usual recently. Overall feels weaker than typical. Her past medical history is notable for diabetes, pulmonary hypertension, congestive heart failure, atrial fibrillation status post a watchman procedure, home oxygen use, asthma, obstructive sleep apnea, morbid obesity, and chronic kidney disease stage IIIa. She underwent a small bowel resection in 2018 for SBO. Denies any surgery on her colon in the past. Allergies Allergy/AdvReac Type Severity Reaction Status Date / Time salmon oil Allergy Severe HIVES-REDDENED Verified 05/20/22 13:03 ALL OVER Iodinated Contrast Media Allergy Intermediate HIVES-GI Verified 05/20/22 13:03 SYMPTOMS valsartan Allergy Intermediate FAST HEART Verified 05/20/22 13:03 BEAT bupropion AdvReac Mild GI SYMPTOMS Verified 05/20/22 13:03 enalapril AdvReac Mild GI SYMPTOMS Verified 05/20/22 13:03 escitalopram AdvReac Mild GI SYMPTOMS Verified 05/20/22 13:03 metoprolol AdvReac Mild LOWERS Verified 05/20/22 13:03 PULSE RATE verapamil AdvReac Mild GI UPSET, Verified 05/20/22 13:03 fast heart rate Home Medications Medication Instructions Recorded Confirmed Type atorvastatin 40 mg tablet 40 mg PO HS 06/23/19 05/31/22 History cholecalciferol (vitamin D3) 25 2,000 unit PO QAM 06/23/19 05/31/22 History mcg (1,000 unit) capsule (Vitamin D3) docusate sodium 100 mg capsule 100 mg PO QAM 06/23/19 05/31/22 History omeprazole 20 mg capsule,delayed 20 mg PO BID 06/23/19 05/31/22 History release albuterol sulfate 2.5 mg/3 mL 2.5 mg inhalation BID PRN 09/25/19 05/31/22 History (0.083 %) solution for nebulization .WORSENING ASTHMA bimatoprost 0.01 % eye drops 1 drp OPB HS 09/25/19 05/31/22 History (Lumigan) brinzolamide 1 % eye 1 drp OPB BID 09/25/19 05/31/22 History drops,suspension (Azopt) polyethylene glycol 3350 17 17 g PO BID PRN Constipation 09/25/19 05/31/22 History gram/dose oral powder (Miralax) ferrous sulfate 325 mg (65 mg 325 mg PO QAM 02/23/20 05/31/22 History iron) tablet (iron) glimepiride 4 mg tablet 2 mg PO QAM 02/23/20 05/31/22 History multivitamin 1 tab PO QAM 06/02/20 05/31/22 History promethazine 25 mg tablet 25 mg PO Q6H PRN nausea and 06/16/20 05/31/22 Rx vomiting #60 tabs hydrocodone 5 mg-acetaminophen 325 1 tab PO Q6H PRN Pain 07/28/20 05/31/22 History mg tablet lactobacillus combination no.4 3 3,000 mmu cells PO QAM 07/28/20 05/31/22 History billion cell capsule (Probiotic) zafirlukast 20 mg tablet 20 mg PO QAM 09/11/20 05/31/22 History aspirin 81 mg tablet,delayed 81 mg PO DAILY 02/05/21 05/31/22 History release (Kenzie Low Dose Aspirin) lisinopril 2.5 mg tablet 2.5 mg PO DAILY 02/05/21 05/31/22 History ipratropium 20 mcg-albuterol 100 1 puff inhalation QID 04/09/21 05/31/22 History mcg/actuation mist for inhalation (Combivent Respimat) potassium chloride 20 mEq 20 meq PO DAILY 04/09/21 05/31/22 History tablet,extended release(part/cryst) (Klor-Con M) metoprolol tartrate 25 mg tablet See Rx Instructions .Route .COMPLEX 07/05/21 05/31/22 History tiotropium bromide 1.25 2 puff inhalation DAILY #1 inhaler 09/10/21 05/31/22 Rx mcg/actuation mist for inhalation (Spiriva Respimat) dicyclomine 20 mg tablet 20 mg PO DAILY 01/14/22 05/31/22 History spironolactone 25 mg tablet 12.5 mg PO 3XWK 01/14/22 05/31/22 History methimazole 5 mg tablet 2.5 mg PO DAILY #15 tabs 01/15/22 05/31/22 Rx sertraline 25 mg tablet 25 mg PO DAILY 03/13/22 05/31/22 History albuterol sulfate 90 mcg/actuation 2 puff inhalation QID PRN 05/03/22 05/31/22 Rx aerosol inhaler (Ventolin HFA) Shortness Of Breath #6.7 grams furosemide 40 mg tablet 40 mg PO BID 05/31/22 05/31/22 History ondansetron 8 mg disintegrating 8 mg PO Q8H PRN Nausea And Vomiting 05/31/22 05/31/22 History tablet Patient History Medical History Aortic valve stenosis, mild Asthma Chris-tachy syndrome Chronic atrial fibrillation Chronic diastolic CHF (congestive heart failure) Chronic HFrEF (heart failure with reduced ejection fraction) Chronic respiratory failure with hypoxia and hypercapnia COPD (chronic obstructive pulmonary disease) Diabetes mellitus, type 2 Esophageal reflux Glaucoma of both eyes Hyperlipidemia Hypertension Lower GI bleed NICM (nonischemic cardiomyopathy) On home oxygen therapy 2L N/C at all times and 4 L N/C at night JORDAN (obstructive sleep apnea) Sleep apnea Subclinical hyperthyroidism Subepithelial mass of stomach Surgical History H/O colonoscopy "04/2014 - diverticular disease throughout colon, internal hemorrhoids, polyp removed" History of appendectomy History of cardiac cath "YEARS AGO"NO BLOCKAGES/NO STENTS-F/U DR THOMSON History of cholecystectomy History of dilatation and curettage History of esophagogastroduodenoscopy (EGD) "04/2014 - normal" History of incisional hernia repair History of tooth extraction all teeth Hx of small bowel obstruction "11/2017 - Seen [facility] - surgical intervention" Nausea and vomiting after administration of anesthetic agent Presence of Watchman left atrial appendage closure device 11/2019 @ [facility] Dr. 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); Hx Alcohol Use: No Hx Substance Use: No Preferred Language: Sami Communication Ability: Effective Art Specialist Required: Yes Beliefs That Will Affect Care: None marital status: / Current Living Situation: Alone Other Information That Helps Us Care for You: No Feels Safe at Home: Yes Safety Concerns: Feels Safe At This Time Assistive Devices: Glasses and Oxygen - Continuous Review of Systems Respiratory: on home oxygen, has been stable other than slightly more shortness of breath with her recent GI symptoms Cardiovascular: Additional Comments: history of CHF and a fib Musculoskeletal: severe right shoulder pain, was due to get injection on Friday Physical Exam Constitutional: morbidly obese, wearing oxygen Respiratory: normal respiratory effort; no respiratory distress and does not use accessory muscles Auscultation: lungs clear to auscultation bilaterally Cardiovascular: Rate/Rhythm: + irregularly irregular Gastrointestinal (Abdomen): Inspection/Auscultation: abdomen normal to inspection, normal bowel sounds and + abdominal surgical incision (well healed); abdomen not distended Percussion/Palpation: + abdomen tender (left lower quadrant) and abdomen soft; no guarding Neurologic: awake; no focal motor deficits Psychiatric: A+Ox3, euthymic affect Results & Data ([facility]) Vital Signs (Past 12 Hours) Vital Signs Temp Pulse Pulse Resp BP Pulse Ox O2 Del Method 06/01/22 10:53 80 18 97 Nasal Cannula 06/01/22 08:00 66 06/01/22 10:20 Nasal Cannula 06/01/22 08:10 36.7 C 82 18 107/69 97 Nasal Cannula 06/01/22 07:20 65 16 98 Nasal Cannula 06/01/22 03:58 36.8 C 82 16 106/61 96 Nasal Cannula 05/31/22 23:59 98 H 05/31/22 23:59 Nasal Cannula O2 Flow Rate 06/01/22 10:53 2 06/01/22 08:00 06/01/22 10:20 2 06/01/22 08:10 2 06/01/22 07:20 4 06/01/22 03:58 05/31/22 23:59 05/31/22 23:59 4 Laboratory Results Abnormal lab results 05/31/22 05/31/22 05/31/22 Range/Units 15:08 15:08 15:55 WBC 14.65 H (4.8-10.8) K/ul RBC (3.93-5.22) M/uL Hgb 11.0 L (12.0-16.0) g/dl Hct (34.1-44.9) % MCHC 30.6 L (32.0-36.0) g/dL RDW Std Deviation 48.6 H (36.4-46.3) fL RDW Coeff of Jesika 15.2 H (11.5-14.5) % Plt Count 477 H (130-400) K/uL MPV 8.9 L (9.4-12.3) fL Neut # (Auto) 10.33 H (1.4-6.5) K/uL [place] # (Auto) 1.56 H (0.24-0.82) K/uL Eos # (Auto) (0-0.50) K/uL Immature Gran # (Auto) 0.23 H (0.00-0.02) K/uL Sodium 131 L (136-145) mmol/L Chloride 96 L (98-107) mmol/L BUN/Creatinine Ratio 22.3 H (10-20) Glucose 148 H (70-99(Fasting)) mg/dl POC Glucose (70-99) mg/dl Alkaline Phosphatase 105 H (34-104) U/L C-Reactive Protein (0-0.5) mg/dl Urine Appearance Turbid A (Clear) Urine Protein 3+ H (Negative) Urine Ketones Trace H (Negative) Urine Blood 3+ H (Negative) Ur Leukocyte Esterase 3+ H (Negative) Urine WBC (Auto) >30 H (0-5) /hpf Urine RBC (Auto) >30 H (0-4) /hpf U Epithel Cells (Auto) >30 H (0-5) /lpf Urine Bacteria (Auto) 1+ H (Negative) 05/31/22 06/01/22 06/01/22 Range/Units 17:54 02:13 05:45 WBC (4.8-10.8) K/ul RBC 3.52 L (3.93-5.22) M/uL Hgb 9.4 L (12.0-16.0) g/dl Hct 30.6 L (34.1-44.9) % MCHC 30.7 L (32.0-36.0) g/dL RDW Std Deviation 48.9 H (36.4-46.3) fL RDW Coeff of Jesika 15.5 H (11.5-14.5) % Plt Count (130-400) K/uL MPV 9.1 L (9.4-12.3) fL Neut # (Auto) (1.4-6.5) K/uL [place] # (Auto) 1.34 H (0.24-0.82) K/uL Eos # (Auto) 0.55 H (0-0.50) K/uL Immature Gran # (Auto) 0.16 H (0.00-0.02) K/uL Sodium (136-145) mmol/L Chloride (98-107) mmol/L BUN/Creatinine Ratio (10-20) Glucose (70-99(Fasting)) mg/dl POC Glucose 100 H (70-99) mg/dl Alkaline Phosphatase (34-104) U/L C-Reactive Protein 5.65 H (0-0.5) mg/dl Urine Appearance (Clear) Urine Protein (Negative) Urine Ketones (Negative) Urine Blood (Negative) Ur Leukocyte Esterase (Negative) Urine WBC (Auto) (0-5) /hpf Urine RBC (Auto) (0-4) /hpf U Epithel Cells (Auto) (0-5) /lpf Urine Bacteria (Auto) (Negative) Diagnostic Findings CT SCAN OF THE ABDOMEN AND PELVIS WITHOUT IV CONTRAST CLINICAL HISTORY: Left lower quadrant abdominal pain. Reported recent history of diverticulitis. COMPARISON STUDY: Abdominal CT dated 05/10/2021. TECHNIQUE: CT scan of the abdomen and pelvis is performed from the lung bases to the proximal femora. Images are reviewed in the axial, sagittal, and coronal planes. IV contrast was not administered for this examination. Note that the examination is suboptimal without oral and IV contrast. A dose lowering technique was utilized adhering to the principles of ALARA. CT DOSE: 1144.61 mGycm FINDINGS: Lung bases: The heart is enlarged and without pericardial effusion. The coronary arteries and mitral annulus are densely calcified. The lung bases are clear noting bibasilar scarring/atelectasis. Liver: The unenhanced liver is normal in size, contour, and attenuation. There is no intrahepatic biliary ductal dilatation. Gallbladder: Surgically absent. Spleen: Normal in size and attenuation. Pancreas: The unenhanced pancreas is atrophic and grossly unremarkable. Adrenal glands: Bilateral adrenal adenomas measuring up to 1.9 cm are unchanged from previous. Kidneys: The unenhanced kidneys demonstrate cortical atrophy and are without hydronephrosis. There are no renal calculi identified. A 2.3 cm exophytic cyst arises from the right upper pole. Abdominal vasculature: The abdominal aorta is normal in course and caliber noting moderate to advanced atherosclerotic calcification. Bowel: There is postoperative change from a sigmoid colon resection with colocolonic anastomosis. No bowel obstruction is seen. Residual enteric contrast is noted in the colon. There is wall thickening with pericolonic inflammation and trace fluid involving the sigmoid colon consistent with acute diverticulitis. No organized fluid collection is seen to indicate abscess on this unenhanced examination. The appendix is not visualized. Peritoneum: There is no intraperitoneal free air or abdominal ascites. There is a fat-containing supraumbilical hernia seen on axial image #225. Lymphadenopathy: None. Pelvic viscera: The bladder is largely decompressed and contains a large amount of intraluminal gas. Findings are suspicious for a colovesicular fistula on the sagittal reformats. The uterus is normal as visualized. No adnexal lesion is seen. Skeletal structures: The skeletal structures are osteopenic. There is mild lumbosacral spondylosis. Sclerotic change is noted in the sacroiliac joints and pubic symphysis. No lytic or blastic lesions are seen. IMPRESSION: 1. Advanced colonic diverticulosis with evidence of severe acute sigmoid diverticulitis. 2. No intraperitoneal free air is seen and there is no organized fluid collection identified to suggest abscess on this unenhanced examination. 3. There is a large amount of intraluminal gas within the bladder with findings suspicious for a colovesicular fistula. Clinical correlation will be required. 4. Status post sigmoid colon resection with colocolonic anastomosis. No bowel obstruction is seen. 5. Additional findings as above. (1) Diverticulitis large intestine Diverticulitis bleeding: without bleeding Diverticulitis complication: with abscess Qualified Code(s): K57.20 - Diverticulitis of large intestine with perforation and abscess without bleeding
--- NOTE | 2022-06-01 11:57 | Hospitalist Progress Note ---
Date of Service June 01, 2022 Assessment & Plan (1) Diverticulitis large intestine: Plan: Ongoing symptoms for past 2 months. No improvement with course of oral antibiotics. History of recurrent diverticulitis with prior abscess Patient has improved symptomatically. Not a surgical candidate per surgery. - Continue IV Zosyn - NPO for now - hold oral meds - IVF - Daily labs (2) Colonic diverticular abscess: Plan: See Plan for #1 (3) Sepsis: Plan: Resolved IV hydration. Follow cultures. (4) Diabetes mellitus, type 2: Plan: - Insulin sliding scale - Accuchecks Q6 hrs (5) COPD (chronic obstructive pulmonary disease): (6) Chronic HFrEF (heart failure with reduced ejection fraction): (7) JORDAN (obstructive sleep apnea): Plan: Continue nocturnal O2 (8) Chronic atrial fibrillation: Plan: Is on aspirin 81 mg at home. Not on anticoagulation otherwise at home.. (9) Subclinical hyperthyroidism: (10) Chronic respiratory failure with hypoxia and hypercapnia: (11) Hypertension: Plan Holding oral medications while NPO - will need to resume methimazole as soon as possible once taking po again. Pt seen and reviewed with collaborating physician, Dr. Gould. Plan of care discussed and as outlined above. Code status: Full code DVT prophylaxis: Edmundo Maria PA-C Admission and Anticipated Discharge Date Admission Date: May 31, 2022 Subjective States her stomach is feeling much better. However complains of chronic right shoulder pain. States she gets steroid injections for such. Otherwise takes hydrocodone for such. Has nausea vomiting. No significant diarrhea. Nurse at bedside. Review of Systems Review of Systems: All systems reviewed and negative other than as described above in the history and physical Physical Exam Physical Exam: Constitutional:WD/WN, vitals as above Neck: trachea midline, no thyromegaly Respiratory: normal respiratory effort, lungs clear to aus cultationAuscultation:no rhonchi and no wheezes Cardiovascular:RRR, no murmur, no edemaHeart Sounds:no murmur Gastrointestinal (Abdomen):normal bowel sounds, soft, nontender, no hepatosplenomegaly. Morbidly obese Musculoskeletal:no cyanosis or clubbing, extremities motor strength 5/5. Pain on abduction of the right shoulder Skin: no rashes, warm and dry Neurologic: AA+Ox3, euthymic affect Results & Data Results & Data ([place]) Vital Signs (Past 12 Hours) Vital Signs Temp Pulse Pulse Resp BP Pulse Ox O2 Del Method 06/01/22 10:53 80 18 97 Nasal Cannula 06/01/22 08:00 66 06/01/22 10:20 Nasal Cannula 06/01/22 08:10 36.7 C 82 18 107/69 97 Nasal Cannula 06/01/22 07:20 65 16 98 Nasal Cannula 06/01/22 03:58 36.8 C 82 16 106/61 96 Nasal Cannula 05/31/22 23:59 98 H 05/31/22 23:59 Nasal Cannula O2 Flow Rate 06/01/22 10:53 2 06/01/22 08:00 06/01/22 10:20 2 06/01/22 08:10 2 06/01/22 07:20 4 06/01/22 03:58 05/31/22 23:59 05/31/22 23:59 4 Laboratory Results Laboratory Results WBC 8.98 K/ul (4.8-10.8) 06/01/22 05:45 RBC 3.52 M/uL (3.93-5.22) L 06/01/22 05:45 Hgb 9.4 g/dl (12.0-16.0) L 06/01/22 05:45 Hct 30.6 % (34.1-44.9) L 06/01/22 05:45 MCV 86.9 fL (80.0-100.0) 06/01/22 05:45 MCH 26.7 pg (25.0-34.0) 06/01/22 05:45 MCHC 30.7 g/dL (32.0-36.0) L 06/01/22 05:45 RDW Std Deviation 48.9 fL (36.4-46.3) H 06/01/22 05:45 RDW Coeff of Jesika 15.5 % (11.5-14.5) H 06/01/22 05:45 Plt Count 386 K/uL (130-400) 06/01/22 05:45 MPV 9.1 fL (9.4-12.3) L 06/01/22 05:45 Immature Gran % (Auto) 1.8 % 06/01/22 05:45 Neut % (Auto) 54.0 % 06/01/22 05:45 Lymph % (Auto) 22.5 % 06/01/22 05:45 [place] % (Auto) 14.9 % 06/01/22 05:45 Eos % (Auto) 6.1 % 06/01/22 05:45 Baso % (Auto) 0.7 % 06/01/22 05:45 Neut # (Auto) 4.85 K/uL (1.4-6.5) 06/01/22 05:45 Lymph # (Auto) 2.02 K/uL (1.2-3.4) 06/01/22 05:45 [place] # (Auto) 1.34 K/uL (0.24-0.82) H 06/01/22 05:45 Eos # (Auto) 0.55 K/uL (0-0.50) H 06/01/22 05:45 Baso # (Auto) 0.06 K/uL (0-0.2) 06/01/22 05:45 Immature Gran # (Auto) 0.16 K/uL (0.00-0.02) H 06/01/22 05:45 PT 10.9 Seconds (9.0-12.0) 05/31/22 15:08 INR 1.0 (0.9-1.1) 05/31/22 15:08 APTT 27.5 Seconds (21.0-31.0) 05/31/22 15:08 PTT Ratio 1.0 05/31/22 15:08 Sodium 136 mmol/L (136-145) 06/01/22 05:45 Potassium 4.7 mmol/L (3.5-5.1) 06/01/22 05:45 Chloride 101 mmol/L (98-107) 06/01/22 05:45 Carbon Dioxide 30 mmol/L (21-32) 06/01/22 05:45 Anion Gap 5 (3-11) 06/01/22 05:45 BUN 17 mg/dl (6-23) 06/01/22 05:45 Creatinine 0.89 mg/dl (0.6-1.2) 06/01/22 05:45 Est Cr Clr Drug Dosing 55.6 ml/min 06/01/22 05:45 Est GFR ( Amer) 69.5 ml/min 06/01/22 05:45 Est GFR (Non-Af Amer) 59.9 ml/min 06/01/22 05:45 BUN/Creatinine Ratio 19.1 (10-20) 06/01/22 05:45 Glucose 98 mg/dl (70-99(Fasting)) 06/01/22 05:45 POC Glucose 100 mg/dl (70-99) H 06/01/22 02:13 Lactate 0.9 mmol/L (0.4-2.0) 05/31/22 17:54 Calcium 8.7 mg/dl (8.5-10.1) 06/01/22 05:45 Total Bilirubin 0.4 mg/dl (0.2-1.0) 05/31/22 15:08 AST 16 U/L (13-39) 05/31/22 15:08 ALT 12 U/L (7-52) 05/31/22 15:08 Alkaline Phosphatase 105 U/L (34-104) H 05/31/22 15:08 C-Reactive Protein 5.65 mg/dl (0-0.5) H 05/31/22 17:54 Total Protein 7.4 gm/dl (6.0-8.3) 05/31/22 15:08 Albumin 3.5 gm/dl (3.4-5.0) 05/31/22 15:08 Globulin 3.9 gm/dl (2.5-4.0) 05/31/22 15:08 Albumin/Globulin Ratio 0.9 (0.9-2) 05/31/22 15:08 Urine Color [place] 05/31/22 15:55 Urine Appearance Turbid (Clear) A 05/31/22 15:55 Urine pH 6.0 (4.5-7.5) 05/31/22 15:55 Ur Specific [place] 1.020 (1.000-1.030) 05/31/22 15:55 Urine Protein 3+ (Negative) H 05/31/22 15:55 Urine Glucose (UA) Negative (Negative) 05/31/22 15:55 Urine Ketones Trace (Negative) H 05/31/22 15:55 Urine Blood 3+ (Negative) H 05/31/22 15:55 Urine Nitrite Negative (Negative) 05/31/22 15:55 Urine Bilirubin Negative (Negative) 05/31/22 15:55 Urine Urobilinogen Negative (Negative) 05/31/22 15:55 Ur Leukocyte Esterase 3+ (Negative) H 05/31/22 15:55 Urine WBC (Auto) >30 /hpf (0-5) H 05/31/22 15:55 Urine RBC (Auto) >30 /hpf (0-4) H 05/31/22 15:55 U Hyaline Cast (Auto) 0 /lpf (0-5) 05/31/22 15:55 U Epithel Cells (Auto) >30 /lpf (0-5) H 05/31/22 15:55 Urine Bacteria (Auto) 1+ (Negative) H 05/31/22 15:55 SARS-CoV-2, RNA, NAAT NEGATIVE (NEGATIVE) 05/31/22 16:45 Impressions Abdomen/Pelvis CT 05/31/22 15:05 CT SCAN OF THE ABDOMEN AND PELVIS WITHOUT IV CONTRAST CLINICAL HISTORY: Left lower quadrant abdominal pain. Reported recent history of diverticulitis. COMPARISON STUDY: Abdominal CT dated 05/10/2021. TECHNIQUE: CT scan of the abdomen and pelvis is performed from the lung bases to the proximal femora. Images are reviewed in the axial, sagittal, and coronal planes. IV contrast was not administered for this examination. Note that the examination is suboptimal without oral and IV contrast. A dose lowering technique was utilized adhering to the principles of ALARA. CT DOSE: 1144.61 mGycm FINDINGS: Lung bases: The heart is enlarged and without pericardial effusion. The coronary arteries and mitral annulus are densely calcified. The lung bases are clear noting bibasilar scarring/atelectasis. Liver: The unenhanced liver is normal in size, contour, and attenuation. There is no intrahepatic biliary ductal dilatation. Gallbladder: Surgically absent. Spleen: Normal in size and attenuation. Pancreas: The unenhanced pancreas is atrophic and grossly unremarkable. Adrenal glands: Bilateral adrenal adenomas measuring up to 1.9 cm are unchanged from previous. Kidneys: The unenhanced kidneys demonstrate cortical atrophy and are without hydronephrosis. There are no renal calculi identified. A 2.3 cm exophytic cyst arises from the right upper pole. Abdominal vasculature: The abdominal aorta is normal in course and caliber noting moderate to advanced atherosclerotic calcification. Bowel: There is postoperative change from a sigmoid colon resection with colocolonic anastomosis. No bowel obstruction is seen. Residual enteric contrast is noted in the colon. There is wall thickening with pericolonic inflammation and trace fluid involving the sigmoid colon consistent with acute diverticulitis. No organized fluid collection is seen to indicate abscess on this unenhanced examination. The appendix is not visualized. Peritoneum: There is no intraperitoneal free air or abdominal ascites. There is a fat-containing supraumbilical hernia seen on axial image #225. Lymphadenopathy: None. Pelvic viscera: The bladder is largely decompressed and contains a large amount of intraluminal gas. Findings are suspicious for a colovesicular fistula on the sagittal reformats. The uterus is normal as visualized. No adnexal lesion is seen. Skeletal structures: The skeletal structures are osteopenic. There is mild lumbosacral spondylosis. Sclerotic change is noted in the sacroiliac joints and pubic symphysis. No lytic or blastic lesions are seen. IMPRESSION: 1. Advanced colonic diverticulosis with evidence of severe acute sigmoid div erticulitis. 2. No intraperitoneal free air is seen and there is no organized fluid collection identified to suggest abscess on this unenhanced examination. 3. There is a large amount of intraluminal gas within the bladder with findings suspicious for a colovesicular fistula. Clinical correlation will be required. 4. Status post sigmoid colon resection with colocolonic anastomosis. No bowel obstruction is seen. 5. Additional findings as above. ACT 112: Negative or not required by law. Electronically signed by: Pepito Guillen M.D. 05/31/2022 4:33 PM Chest X-Ray 05/31/22 17:34 XR chest 2V PA/lateral HISTORY: Shortness of breath, increased O2 requirement COMPARISON: Chest 06/11/2021. FINDINGS: No pneumothorax. No pleural effusions. A few left basilar linear densities likely representing subsegmental atelectasis or scarring. This is similar to the prior study. Otherwise, no new focal lung consolidations to suggest pneumonia. No evidence for pulmonary edema. The heart remains mildly enlarged. An atrial septal closure device is noted. IMPRESSION: Stable cardiomegaly. Otherwise, no acute process within the chest ACT 112: Negative or not required by law. Electronically signed by: Greg Waggoner M.D. 05/31/2022 8:29 PM Medications Administered Current Inpatient Medications Albuterol (Albuterol Hfa 8 Gm Inhaler) 2 puffs INH QID PRN PRN Reason: Shortness Of Breath Stop: 06/30/22 20:49 Albuterol (Albuterol Hfa 8 Gm Inhaler (Combivent Respimat P&T Subs)) 1 puffs INH QIDR ANDREA Stop: 07/01/22 06:59 Last Admin: 06/01/22 10:52 Dose: 1 puffs Bimatoprost (Bimatoprost 0.01% Op Soln 2.5 Ml Btl) 1 drops OP HS ANDREA Stop: 07/01/22 20:59 Brinzolamide (Brinzolamide (Azopt) Ops 10 Ml Btl) 1 drops OPB BID ANDREA Stop: 06/30/22 20:59 Last Admin: 06/01/22 08:24 Dose: 1 drops Piperacillin Sod/Tazobactam (Sod 3.375 gm/ Dextrose) 115 mls @ 28.75 mls/hr IV Q8H [facility]; Protocol Stop: 06/10/22 21:59 Last Infusion: 06/01/22 10:01 Dose: Infused Sodium Chloride (Nss 1000ml) 1,000 mls @ 60 mls/hr IV .[id number] ANDREA Stop: 06/01/22 13:29 Last Admin: 05/31/22 22:11 Dose: 60 mls/hr Acetaminophen (Ofirmev) 1,000 mg in 100 mls @ 400 mls/hr IV Q8H PRN PRN Reason: Pain Stop: 06/03/22 20:49 Ipratropium [place] (Ipratropium Hfa Inhaler (Combivent Respimat P&T Subs)) 1 puffs INH QIDR ANDREA Stop: 07/01/22 06:59 Last Admin: 06/01/22 10:53 Dose: 1 puffs Morphine Sulfate (Morphine Sulfate 2 Mg/Ml [place]) 2 mg IV Q6H PRN PRN Reason: severe Pain Stop: 06/14/22 19:50 Last Admin: 06/01/22 07:06 Dose: 2 mg Ondansetron HCl (Ondansetron Inj 2 Mg/Ml 2 Ml Vial) 4 mg IV Q6H PRN PRN Reason: Nausea Stop: 06/30/22 20:49 Umeclidinium [place] (Umeclidinium [place] 62.5mcg/Blister 7 Puffs/Inhaler) 1 puffs INH DAILY ANDREA Stop: 07/01/22 08:59 Last Admin: 06/01/22 08:24 Dose: 1 puffs (1) Diverticulitis large intestine Diverticulitis bleeding: without bleeding Diverticulitis complication: with abscess Qualified Code(s): K57.20 - Diverticulitis of large intestine with perforation and abscess without bleeding (2) COPD (chronic obstructive pulmonary disease) COPD type: COPD with acute exacerbation Qualified Code(s): J44.1 - Chronic obstructive pulmonary disease with (acute) exacerbation
[2022-06-01] MEDS: LIDOCAINE 4% CREAM 15 GM TUBE EXT SCH ×2 (13:14→21:40)
[2022-06-01] MEDS: BIMATOPROST 0.01% OP SOLN 2.5 ML BTL OP SCH (21:41)
--- NOTE | 2022-06-01 22:34 | Electrocardiogram Report ---
Test Reason : Blood Pressure : / mmHG Vent. Rate : 090 BPM Atrial Rate : 127 BPM P-R Int : 000 ms QRS Dur : 122 ms QT Int : 366 ms P-R-T Axes : 000 -43 081 degrees QTc Int : 447 ms Poor data quality, interpretation may be adversely affected Atrial fibrillation Left axis deviation Non-specific intra-ventricular conduction delay Nonspecific T wave abnormality Abnormal ECG When compared with ECG of 11-JUN-2021 13:36, Criteria for Septal infarct are no longer Present Confirmed by Trav Brar [id number]) on 06/01/2022 10:34:21 PM Referred By: Marcela Pinto Confirmed By:Trav Brar
[2022-06-02] MEDS: MoRPHine SULFATE 2 MG/ML CARP IV PRN ×4 (01:55→22:03)
[2022-06-02] MEDS: PIPERACILLIN/TAZOBACTAM 3.375 GM in DEXTROSE 5% 100 ML IV SCH ×3 (05:42→22:19)
[2022-06-02 07:07] LABS: Basophils # (auto) 0.04 K/uL (0-0.2); Basophils % (auto) 0.4 %; Eosinophils # (auto) 0.49 K/uL (0-0.50); Eosinophils % (auto) 4.3 %; Hematocrit (blood only) 30.2 % (34.1-44.9); Hemoglobin 9.2 g/dl (12.0-16.0); Immature Granulocytes # (auto) 0.13 K/uL (0.00-0.02); Immature Granulocytes % (auto) 1.1 %; Lymphocytes # (auto) 2.32 K/uL (1.2-3.4); Lymphocytes % (auto) 20.5 %; Mean Corpuscular Hemoglobin 26.6 pg (25.0-34.0); Mean Corpuscular Hgb Conc 30.5 g/dL (32.0-36.0); Mean Corpuscular Volume 87.3 fL (80.0-100.0); Mean Platelet Volume 9.2 fL (9.4-12.3); Monocytes # (auto) 1.35 K/uL (0.24-0.82); Monocytes % (auto) 11.9 %; Neutrophils % (auto) 61.8 %; Platelet Count 386 K/uL (130-400); RDW Coefficient of Variation 15.7 % (11.5-14.5); RDW Standard Deviation 49.5 fL (36.4-46.3); Red Blood Count 3.46 M/uL (3.93-5.22); White Blood Count 11.33 K/ul (4.8-10.8)
[2022-06-02] MEDS: Ipratropium HFA Inhaler (Combivent Respimat P&T Subs) INH SCH ×4 (07:27→19:19)
[2022-06-02] MEDS: Albuterol HFA 8 GM Inhaler (Combivent Respimat P&T Subs) INH SCH ×4 (07:27→19:18)
[2022-06-02 07:32] LABS: BUN Creatinine Ratio 15.4 (10-20); Calcium 8.5 mg/dl (8.5-10.1); Creatinine Clr Calc Pharmacy 54.7 ml/min; Est GFR (African American) 67.6 ml/min; Est GFR (Non-African American) 58.3 ml/min
[2022-06-02] MEDS: BRINZOLAMIDE (AZOPT) OPS 10 ML BTL OPB SCH ×2 (08:43→20:18)
[2022-06-02] MEDS: UMECLIDINIUM BROMIDE 62.5MCG/BLISTER 7 PUFFS/INHALER INH SCH (08:43)
[2022-06-02] MEDS: LIDOCAINE 4% CREAM 15 GM TUBE EXT SCH ×2 (08:44→20:19)
--- NOTE | 2022-06-02 09:36 | Surgery Progress Note ---
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 Appears to be improving without any indications for urgent surgical intervention. Would continue IV antibiotics. Due to her multiple other issues, she is not a surgical candidate at this institution. If she worsens, would recommend transfer. Consider urology evaluation to confirm colovesical fistula. It would be OK to start clear liquids and see how she tolerates. Admission and Anticipated Discharge Date Admission Date: May 31, 2022 Subjective Overall abdominal pain improved. Still notes cramping this am, 4/10 in severity. Passed a bowel movement - soft stool. No nausea. She is hungry. Physical Exam Respiratory: normal respiratory effort; no respiratory distress and does not use accessory muscles Auscultation: lungs clear to auscultation bilaterally Cardiovascular: Rate/Rhythm: + irregularly irregular Gastrointestinal (Abdomen): Inspection/Auscultation: abdomen normal to inspection, normal bowel sounds and + abdominal surgical incision (well healed); abdomen not distended Percussion/Palpation: + abdomen tender (left lower qu adrant, mild) and abdomen soft; no guarding Neurologic: awake; no focal motor deficits Psychiatric: A+Ox3, euthymic affect Results & Data ([facility]) Vital Signs (Past 12 Hours) Vital Signs Temp Pulse Pulse Resp BP Pulse Ox O2 Del Method 06/02/22 07:35 37.0 C 111 H 20 112/76 94 Nasal Cannula 06/02/22 07:27 88 22 94 Nasal Cannula 06/02/22 00:00 87 06/02/22 03:27 37.0 C 101 H 18 94/53 L 97 Nasal Cannula 06/01/22 23:45 37.5 C 116 H 20 131/83 96 Nasal Cannula O2 Flow Rate 06/02/22 07:35 2 06/02/22 07:27 4 06/02/22 00:00 06/02/22 03:27 2 06/01/22 23:45 2 Laboratory Results Abnormal lab results 06/01/22 06/02/22 Range/Units 20:03 06:36 WBC 11.33 H (4.8-10.8) K/ul RBC 3.46 L (3.93-5.22) M/uL Hgb 9.2 L (12.0-16.0) g/dl Hct 30.2 L (34.1-44.9) % MCHC 30.5 L (32.0-36.0) g/dL RDW Std Deviation 49.5 H (36.4-46.3) fL RDW Coeff of Jesika 15.7 H (11.5-14.5) % MPV 9.2 L (9.4-12.3) fL Neut # (Auto) 7.00 H (1.4-6.5) K/uL [place] # (Auto) 1.35 H (0.24-0.82) K/uL Immature Gran # (Auto) 0.13 H (0.00-0.02) K/uL POC Glucose 101 H (70-99) mg/dl (1) Diverticulitis large intestine Diverticulitis bleeding: without bleeding Diverticulitis complication: with abscess Qualified Code(s): K57.20 - Diverticulitis of large intestine with perforation and abscess without bleeding
--- NOTE | 2022-06-02 10:38 | Urology Consultation ---
Date of Consultation June 02, 2022 Assessment & Plan (1) Colovesical fistula: Plan 81-year-old female with a significant history of diverticulitis with recent admission for exacerbation of symptoms. CT scan shows air in bladder and raises the question of colovesical fistula. Surgery requested urologic intervention. Given the noncontrast CT scan findings and patient's history, she most likely does have a colovesical fistula. Fortunately, outside of pneumaturia, she does not have any dysuria or history of recurrent infections. No acute urologic intervention necessary [place] method for diagnosis would be CT scan with IV and oral contrast however she has an allergy to this. Can consider MRI with contrast or barium enema but given whole clinical picture, likely patient does have colovesical fistula and I do not think any further diagnostic imaging is necessary. Based on surgery note, does not appear as if she is an appropriate surgical candidate here. If that were to change, urology could assist in case if necessary. Could possibly discuss endoscopic treatment approach with urology and minimally invasive surgery at [facility] as they have done these previously. Obviously, that would only treat the bladder and not address the underlying issue with her colon. Urology to sign off. Does not need any outpatient urologic follow-up as this is a bowel issue at baseline. History of Present Illness Reason for Consultation: Possible colovesical fistula Attending Physician: Frank Abdi MD History of Present Illness 81-year-old female with multiple medical comorbidities who was admitted for recurrent diverticulitis. Based on chart review, it appears she has had surgical intervention in the past but more recently has been deemed not an appropriate surgical candidate by general surgery here. She has been afebrile and intermittently tachycardic with softer blood pressures. Labs today show a mild leukocytosis of 11.3, a creatinine of 0.91, and a urinalysis that was negative for nitrites, had 3+ leukocyte esterase, greater than 30 WBCs, greater than 30 RBCs and 1+ bacteria. Urine culture grew out mixed organisms and high counts. Blood cultures are preliminarily negative. I independently reviewed a CT scan of the abdomen pelvis without contrast from 05/31/2022. This shows normal kidneys without hydronephrosis. There is some intraluminal air in the bladder and there is some dilated bowel overlying this that raises the question of a colovesical fistula. She reports she is doing better today. Regarding urinary symptoms, she does report pneumaturia. She denies any dysuria or recurrent infections. Allergies Allergy/AdvReac Type Severity Reaction Status Date / Time salmon oil Allergy Severe HIVES-REDDENED Verified 05/20/22 13:03 ALL OVER Iodinated Contrast Media Allergy Intermediate HIVES-GI Verified 05/20/22 13:03 SYMPTOMS valsartan Allergy Intermediate FAST HEART Verified 05/20/22 13:03 BEAT bupropion AdvReac Mild GI SYMPTOMS Verified 05/20/22 13:03 enalapril AdvReac Mild GI SYMPTOMS Verified 05/20/22 13:03 escitalopram AdvReac Mild GI SYMPTOMS Verified 05/20/22 13:03 metoprolol AdvReac Mild LOWERS Verified 05/20/22 13:03 PULSE RATE verapamil AdvReac Mild GI UPSET, Verified 05/20/22 13:03 fast heart rate Home Medications Medication Instructions Recorded Confirmed Type atorvastatin 40 mg tablet 40 mg PO HS 06/23/19 05/31/22 History cholecalciferol (vitamin D3) 25 2,000 unit PO QAM 06/23/19 05/31/22 History mcg (1,000 unit) capsule (Vitamin D3) docusate sodium 100 mg capsule 100 mg PO QAM 06/23/19 05/31/22 History omeprazole 20 mg capsule,delayed 20 mg PO BID 06/23/19 05/31/22 History release albuterol sulfate 2.5 mg/3 mL 2.5 mg inhalation BID PRN 09/25/19 05/31/22 History (0.083 %) solution for nebulization .WORSENING ASTHMA bimatoprost 0.01 % eye drops 1 drp OPB HS 09/25/19 05/31/22 History (Lumigan) brinzolamide 1 % eye 1 drp OPB BID 09/25/19 05/31/22 History drops,suspension (Azopt) polyethylene glycol 3350 17 17 g PO BID PRN Constipation 09/25/19 05/31/22 History gram/dose oral powder (Miralax) ferrous sulfate 325 mg (65 mg 325 mg PO QAM 02/23/20 05/31/22 History iron) tablet (iron) glimepiride 4 mg tablet 2 mg PO QAM 02/23/20 05/31/22 History multivitamin 1 tab PO QAM 06/02/20 05/31/22 History promethazine 25 mg tablet 25 mg PO Q6H PRN nausea and 06/16/20 05/31/22 Rx vomiting #60 tabs hydrocodone 5 mg-acetaminophen 325 1 tab PO Q6H PRN Pain 07/28/20 05/31/22 History mg tablet lactobacillus combination no.4 3 3,000 mmu cells PO QAM 07/28/20 05/31/22 History billion cell capsule (Probiotic) zafirlukast 20 mg tablet 20 mg PO QAM 09/11/20 05/31/22 History aspirin 81 mg tablet,delayed 81 mg PO DAILY 02/05/21 05/31/22 History release (Kenzie Low Dose Aspirin) lisinopril 2.5 mg tablet 2.5 mg PO DAILY 02/05/21 05/31/22 History ipratropium 20 mcg-albuterol 100 1 puff inhalation QID 04/09/21 05/31/22 History mcg/actuation mist for inhalation (Combivent Respimat) potassium chloride 20 mEq 20 meq PO DAILY 04/09/21 05/31/22 History tablet,extended release(part/cryst) (Klor-Con M) metoprolol tartrate 25 mg tablet See Rx Instructions .Route .COMPLEX 07/05/21 05/31/22 History tiotropium bromide 1.25 2 puff inhalation DAILY #1 inhaler 09/10/21 05/31/22 Rx mcg/actuation mist for inhalation (Spiriva Respimat) dicyclomine 20 mg tablet 20 mg PO DAILY 01/14/22 05/31/22 History spironolactone 25 mg tablet 12.5 mg PO 3XWK 01/14/22 05/31/22 History methimazole 5 mg tablet 2.5 mg PO DAILY #15 tabs 01/15/22 05/31/22 Rx sertraline 25 mg tablet 25 mg PO DAILY 03/13/22 05/31/22 History albuterol sulfate 90 mcg/actuation 2 puff inhalation QID PRN 05/03/22 05/31/22 Rx aerosol inhaler (Ventolin HFA) Shortness Of Breath #6.7 grams furosemide 40 mg tablet 40 mg PO BID 05/31/22 05/31/22 History ondansetron 8 mg disintegrating 8 mg PO Q8H PRN Nausea And Vomiting 05/31/22 05/31/22 History tablet Patient History Medical History Aortic valve stenosis, mild Asthma Chris-tachy syndrome Chronic atrial fibrillation Chronic diastolic CHF (congestive heart failure) Chronic HFrEF (heart failure with reduced ejection fraction) Chronic respiratory failure with hypoxia and hypercapnia COPD (chronic obstructive pulmonary disease) Diabetes mellitus, type 2 Esophageal reflux Glaucoma of both eyes Hyperlipidemia Hypertension Lower GI bleed NICM (nonischemic cardiomyopathy) On home oxygen therapy 2L N/C at all times and 4 L N/C at night JORDAN (obstructive sleep apnea) Sleep apnea Subclinical hyperthyroidism Subepithelial mass of stomach Surgical History H/O colonoscopy "04/2014 - diverticular disease throughout colon, internal hemorrhoids, polyp removed" History of appendectomy History of cardiac cath "YEARS AGO"NO BLOCKAGES/NO STENTS-F/U DR THOMSON History of cholecystectomy History of dilatation and curettage History of esophagogastroduodenoscopy (EGD) "04/2014 - normal" History of incisional hernia repair History of tooth extraction all teeth Hx of small bowel obstruction "11/2017 - Seen [facility] - surgical intervention" Nausea and vomiting after administration of anesthetic agent Presence of Watchman left atrial appendage closure device 11/2019 @ [facility] Dr. 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 Required: Yes Beliefs That Will Affect Care: None marital status: / Current Living Situation: Alone Other Information That Helps Us Care for You: No Feels Safe at Home: Yes Safety Concerns: Feels Safe At This Time Assistive Devices: Glasses, Nebulizer, Oxygen - Continuous and Walker Review of Systems Review of Systems: 14 point review of systems negative outside of what is listed above in HPI Physical Exam Physical Exam: General: Alert and oriented, no acute distress HEENT: Normocephalic, mucous membranes moist Pulmonary: Nonlabored respirations Abdomen: Nondistended, nondistended, mild tenderness in left lower quadrant Extremities: Moves all 4 spontaneously Neuro: No gross deficits Skin: Warm, dry, no rashes noted Results & Data ([facility]) Vital Signs (Past 12 Hours) Vital Signs Temp Pulse Pulse Resp BP Pulse Ox O2 Del Method 06/02/22 07:35 37.0 C 111 H 20 112/76 94 Nasal Cannula 06/02/22 07:27 88 22 94 Nasal Cannula 06/02/22 00:00 87 06/02/22 03:27 37.0 C 101 H 18 94/53 L 97 Nasal Cannula 06/01/22 23:45 37.5 C 116 H 20 131/83 96 Nasal Cannula O2 Flow Rate 06/02/22 07:35 2 06/02/22 07:27 4 06/02/22 00:00 06/02/22 03:27 2 06/01/22 23:45 2 PG Care Time/CCT Total # of Minutes Spent Total Time Spent with Patient: Total time spent is greater than 50% in coordination of care (as documented) at patient's floor/unit and/or counseling patient: Coding Level of Care Code 36354 Initial Inpt Care Lvl 2 Diagnoses Colovesical fistula N32.1
[2022-06-02] MEDS: METOPROLOL TARTRATE 25 MG TAB PO SCH ×2 (12:05→20:20)
[2022-06-02] MEDS: methIMAzole 5 MG TABLET PO SCH (12:05)
--- NOTE | 2022-06-02 17:24 | Hospitalist Progress Note ---
Date of Service June 02, 2022 Assessment & Plan (1) Diverticulitis large intestine: Plan: Acute severe sigmoid diverticulitis Ongoing symptoms for past 2 months. No improvement with course of oral antibiotics. History of recurrent diverticulitis with prior abscess Currently on iv zosyn and bowel rest with improvement Surgery following- will start on clears per surgery and monitor CT A/P 1. Advanced colonic diverticulosis with evidence of severe acute sigmoid diverticulitis. 2. No intraperitoneal free air is seen and there is no organized fluid collection identified to suggest abscess on this unenhanced examination. 3. There is a large amount of intraluminal gas within the bladder with findings suspicious for a colovesicular fistula. Clinical correlation will be required. 4. Status post sigmoid colon resection with colocolonic anastomosis. No bowel obstruction is seen. 5. Additional findings as above. (2) Colovesical fistula: Plan: no acute urologic intervention per urology Per surgery and urology- no need for further imaging to confirm- will need evaluation at tertiary center for repair- will discuss with surgery regarding urgency of repair or transfer (3) Sepsis: Plan: resolving, does not look acutely sick or septic. Blood clx negative. (4) Diabetes mellitus, type 2: Plan: SSI prn (5) COPD (chronic obstructive pulmonary disease): (6) Chronic HFrEF (heart failure with reduced ejection fraction): Plan: will resume home lasix once eating normally. currently looks euvolemic (7) JORDAN (obstructive sleep apnea): Plan: Continue nocturnal O2 (8) Chronic atrial fibrillation: Plan: Is on aspirin 81 mg at home. Not on anticoagulation otherwise at home.. (9) Subclinical hyperthyroidism: Plan: resume methimazole and BB (10) Chronic respiratory failure with hypoxia and hypercapnia: Plan: continue home oxygen (11) Hypertension: Plan: continue metoprolol, aldactone. BP soft- will monitor Plan DVT ppx- sc lovenox Dispo- On IV ABx for severe acute diverticulitis. Might need transfer to tertiary center. Admission and Anticipated Discharge Date Admission Date: May 31, 2022 Subjective Still has pain in LLQ. States she has air in urine for past few days. No N/V/CP/SOB, fever or chills. Willing to try clears. Physical Exam Physical Exam: General:Sitting comfortably in bed, not in distress, on NC chronically HEENT: EOMI, PERRL, MMM Chest: Clear breath sounds bilaterally, no wheezes or crackles CVS: irregular, normal heart sounds, no murmur Abdomen: Soft, LLQ tender, not distended, normal bowel sounds Neuro: Awake, alert, oriented, conversing well, non focal Extremities: No edema Results & Data Results & Data ([facility]) Vital Signs (Past 12 Hours) Vital Signs Temp Pulse Resp BP Pulse Ox O2 Del Method O2 Flow Rate 06/02/22 15:51 38.4 C H 85 18 98/66 L 92 Nasal Cannula 2 06/02/22 14:26 74 18 100 Nasal Cannula 2 06/02/22 11:34 104 H 16 100 Nasal Cannula 2 06/02/22 11:32 37.3 C 96 H 17 96/62 L 98 Nasal Cannula 2 06/02/22 11:23 Nasal Cannula 2 06/02/22 07:35 37.0 C 111 H 20 112/76 94 Nasal Cannula 2 06/02/22 07:27 88 22 94 Nasal Cannula 4 Laboratory Results Short CBC 06/02/22 Range/Units 06:36 WBC 11.33 H (4.8-10.8) K/ul Hgb 9.2 L (12.0-16.0) g/dl Hct 30.2 L (34.1-44.9) % Plt Count 386 (130-400) K/uL BMP 06/02/22 06:36 Sodium 136 Potassium 4.0 Chloride 103 Carbon Dioxide 29 BUN 14 Creatinine 0.91 Glucose 89 Calcium 8.5 Medications Administered Current Inpatient Medications Albuterol (Albuterol Hfa 8 Gm Inhaler) 2 puffs INH QID PRN PRN Reason: Shortness Of Breath Stop: 06/30/22 20:49 Albuterol (Albuterol Hfa 8 Gm Inhaler (Combivent Respimat P&T Subs)) 1 puffs INH QIDR ANDREA Stop: 07/01/22 06:59 Last Admin: 06/02/22 14:26 Dose: 1 puffs Aspirin (Aspirin 81 Mg Ectab) 81 mg PO DAILY ANDREA Stop: 07/03/22 08:59 Atorvastatin Calcium (Atorvastatin 40 Mg Tab) 40 mg PO HS ANDREA Stop: 07/02/22 20:59 Bimatoprost (Bimatoprost 0.01% Op Soln 2.5 Ml Btl) 1 drops OP HS ANDREA Stop: 07/01/22 20:59 Last Admin: 06/01/22 21:41 Dose: 1 drops Brinzolamide (Brinzolamide (Azopt) Ops 10 Ml Btl) 1 drops OPB BID ANDREA Stop: 06/30/22 20:59 Last Admin: 06/02/22 08:43 Dose: 1 drops Piperacillin Sod/Tazobactam (Sod 3.375 gm/ Dextrose) 115 mls @ 28.75 mls/hr IV Q8H ANDREA; Protocol Stop: 06/10/22 21:59 Last Admin: 06/02/22 12:59 Dose: 28.8 mls/hr Acetaminophen (Ofirmev) 1,000 mg in 100 mls @ 400 mls/hr IV Q8H PRN PRN Reason: Pain Stop: 06/03/22 20:49 Ipratropium [place] (Ipratropium Hfa Inhaler (Combivent Respimat P&T Subs)) 1 puffs INH QIDR ANDREA Stop: 07/01/22 06:59 Last Admin: 06/02/22 14:26 Dose: 1 puffs Lidocaine (Lidocaine 4% Cream 15 Gm Tube) 1 appln EXT BID [facility] Stop: 07/01/22 11:59 Last Admin: 06/02/22 08:44 Dose: 1 appln Methimazole (Methimazole 5 Mg Tablet) 2.5 mg PO DAILY [facility] Stop: 07/02/22 10:29 Last Admin: 06/02/22 12:05 Dose: 2.5 mg Metoprolol Tartrate (Metoprolol Tartrate 25 Mg Tab) 25 mg PO QAM ANDREA Stop: 07/02/22 10:29 Last Admin: 06/02/22 12:05 Dose: 25 mg Metoprolol Tartrate (Metoprolol Tartrate 25 Mg Tab) 12.5 mg PO QPM [facility] Stop: 07/02/22 20:59 Miscellaneous (Zafirlukast: Order Awaiting Action) 1 each N/A QS [facility] Stop: 07/02/22 15:59 Morphine Sulfate (Morphine Sulfate 2 Mg/Ml Carp) 3 mg IV Q4H PRN PRN Reason: severe Pain Stop: 06/14/22 19:50 Last Admin: 06/02/22 16:43 Dose: 3 mg Ondansetron HCl (Ondansetron Inj 2 Mg/Ml 2 Ml Vial) 4 mg IV Q6H PRN PRN Reason: Nausea Stop: 06/30/22 20:49 Pantoprazole Sodium (Pantoprazole 40 Mg Tab) 40 mg PO BID [facility]; Protocol Stop: 07/02/22 20:59 Sertraline HCl (Sertraline Hcl 50 Mg Tablet) 25 mg PO DAILY [facility] Stop: 07/03/22 08:59 Spironolactone (Spironolactone 12.5 Mg Tab) 12.5 mg PO [id number] [facility] Stop: 07/03/22 08:59 Umeclidinium [place] (Umeclidinium [place] 62.5mcg/Blister 7 Puffs/Inhaler) 1 puffs INH DAILY [facility] Stop: 07/01/22 08:59 Last Admin: 06/02/22 08:43 Dose: 1 puffs (1) Diverticulitis large intestine Diverticulitis bleeding: without bleeding Diverticulitis complication: with abscess Qualified Code(s): K57.20 - Diverticulitis of large intestine with perforation and abscess without bleeding (2) COPD (chronic obstructive pulmonary disease) COPD type: COPD with acute exacerbation Qualified Code(s): J44.1 - Chronic obstructive pulmonary disease with (acute) exacerbation
[2022-06-02] MEDS ORDERED: GLUCOSE 40% GEL 15 GM TUBE PO PRN (19:24)
[2022-06-02] MEDS ORDERED: GLUCOSE 10 TAB/TUBE PO PRN (19:24)
[2022-06-02] MEDS ORDERED: CARBOHYDRATES FOR HYPOGLYCEMIA PO PRN (19:24)
[2022-06-02] MEDS ORDERED: GLUCAGON FOR INJ 1 MG VIAL SQ PRN (19:24)
[2022-06-02] MEDS ORDERED: DEXTROSE 50% 50 ML SYRINGE IV PRN (19:24)
[2022-06-02] MEDS: BIMATOPROST 0.01% OP SOLN 2.5 ML BTL OP SCH (20:18)
[2022-06-02] MEDS: ATORVASTATIN 40 MG TAB PO SCH (20:18)
[2022-06-02] MEDS: ENOXAPARIN INJ 40 MG/0.4 ML SYR SQ SCH (20:18)
[2022-06-02] MEDS: PANTOprazole 40 MG TAB PO SCH (20:19)
[2022-06-02] MEDS: INSULIN ASPART PER UNIT SC SCH (20:25)
[2022-06-03] MEDS: MoRPHine SULFATE 2 MG/ML CARP IV PRN ×3 (02:39→14:18)
[2022-06-03] MEDS: PIPERACILLIN/TAZOBACTAM 3.375 GM in DEXTROSE 5% 100 ML IV SCH ×3 (05:00→21:46)
[2022-06-03 06:54] LABS: Basophils # (auto) 0.05 K/uL (0-0.2); Basophils % (auto) 0.4 %; Eosinophils # (auto) 0.56 K/uL (0-0.50); Eosinophils % (auto) 4.1 %; Hematocrit (blood only) 30.2 % (34.1-44.9); Hemoglobin 9.4 g/dl (12.0-16.0); Immature Granulocytes # (auto) 0.13 K/uL (0.00-0.02); Lymphocytes # (auto) 3.54 K/uL (1.2-3.4); Lymphocytes % (auto) 26.2 %; Mean Corpuscular Hemoglobin 26.9 pg (25.0-34.0); Mean Corpuscular Hgb Conc 31.1 g/dL (32.0-36.0); Mean Corpuscular Volume 86.5 fL (80.0-100.0); Mean Platelet Volume 9.3 fL (9.4-12.3); Monocytes # (auto) 1.99 K/uL (0.24-0.82); Monocytes % (auto) 14.7 %; Neutrophils # (auto) 7.24 K/uL (1.4-6.5); Neutrophils % (auto) 53.6 %; Platelet Count 353 K/uL (130-400); RDW Coefficient of Variation 15.7 % (11.5-14.5); RDW Standard Deviation 49.6 fL (36.4-46.3); Red Blood Count 3.49 M/uL (3.93-5.22); White Blood Count 13.51 K/ul (4.8-10.8)
[2022-06-03] MEDS: Albuterol HFA 8 GM Inhaler (Combivent Respimat P&T Subs) INH SCH ×4 (07:05→19:55)
[2022-06-03] MEDS: Ipratropium HFA Inhaler (Combivent Respimat P&T Subs) INH SCH ×4 (07:05→19:55)
[2022-06-03 07:17] LABS: BUN Creatinine Ratio 15.1 (10-20); Calcium 8.5 mg/dl (8.5-10.1); Creatinine Clr Calc Pharmacy 53.5 ml/min; Est GFR (African American) 65.9 ml/min; Est GFR (Non-African American) 56.8 ml/min; Magnesium 1.6 mg/dl (1.7-2.4); Phosphorus 3.4 mg/dl (2.5-4.9); Potassium 4.4 mmol/L (3.5-5.1)
[2022-06-03] MEDS ORDERED: MAGNESIUM SULFATE / D5W 1 GM/100 ML BAG IV ONE (08:00)
[2022-06-03] MEDS: INSULIN ASPART PER UNIT SC SCH ×4 (09:19→21:46)
[2022-06-03] MEDS: methIMAzole 5 MG TABLET PO SCH (09:40)
[2022-06-03] MEDS: SPIRONOLACTONE 12.5 MG TAB PO SCH (09:40)
[2022-06-03] MEDS: SERTRALINE HCL 50 MG TABLET PO SCH (09:42)
[2022-06-03] MEDS: PANTOprazole 40 MG TAB PO SCH ×2 (09:42→21:24)
[2022-06-03] MEDS: BRINZOLAMIDE (AZOPT) OPS 10 ML BTL OPB SCH ×2 (09:43→21:22)
[2022-06-03] MEDS: METOPROLOL TARTRATE 25 MG TAB PO SCH ×3 (09:43→21:30)
[2022-06-03] MEDS: ASPIRIN 81 MG ECTAB PO SCH (09:44)
[2022-06-03] MEDS: LIDOCAINE 4% CREAM 15 GM TUBE EXT SCH ×2 (09:44→21:24)
[2022-06-03] MEDS: UMECLIDINIUM BROMIDE 62.5MCG/BLISTER 7 PUFFS/INHALER INH SCH (09:45)
--- NOTE | 2022-06-03 14:30 | Surgery Progress Note ---
Date of Service June 03, 2022 Assessment & Plan (1) Diverticulitis large intestine: Plan: 81 yr old woman with multiple medical comorbidities now presents with recurrent diverticulitis of sigmoid colon with evidence of colovesical fistula on CT scan. -afebrile today, tmax yesterday 38.4 - mild increase in leukocytosis (13K today 11.3k yesterday) - abdominal pain stable Plan: Continue clear liquids for now Would continue IV antibiotics. May need to consider repeat CT scan if wbc continues to increase, will re- evaluate tomorrow Due to her multiple other issues, she is not a surgical candidate at this institution. If she worsens, would recommend transfer. Dr. Smiley has seen and examined pt, agrees with above. Admission and Anticipated Discharge Date Admission Date: May 31, 2022 Supervising Physician Co-Signing Physician Notes I have seen and examined the patient personally and agree with the above assessment and plan. We will continue conservative management at this time. She has not shown significant improvement, and we will repeat her CT scan tomorrow. If she continues to have significant inflammation or if she worsens, she will need to be transferred to a tertiary care center for definitive management of this issue. We will continue to follow. Subjective feeling about the same today abdominal pain is the same, located in left lower abdomen passing gas with urine and passing gas via rectum diarrhea, no blood in stools no fevers or chills no n,v Physical Exam Constitutional: WD/WN, vitals as above + obese and cooperative; no acute distress and not ill appearing Neck: normal visual inspection and trachea midline Respiratory: normal respiratory effort; no respiratory distress and no labored breathing Gastrointestinal (Abdomen): Inspection/Auscultation: abdomen normal to inspection; abdomen not distended Percussion/Palpation: + abdomen tender (LLQ on deep palpation) and abdomen soft; no guarding and abdomen not rigid Skin: no rashes, warm and dry Psychiatric: Orientation: alert and oriented x 3 Results & Data ([facility]) Vital Signs (Past 12 Hours) Vital Signs Temp Pulse Resp BP Pulse Ox O2 Del Method O2 Flow Rate 06/03/22 12:24 37.4 C 108 H 18 93/65 L 96 Nasal Cannula 2.0 06/03/22 11:14 85 18 96 Nasal Cannula 2 06/03/22 08:39 Nasal Cannula 2 06/03/22 07:51 36.9 C 67 18 97/67 L 96 Nasal Cannula 2 06/03/22 07:06 84 18 98 Nasal Cannula 4 06/03/22 04:00 36.5 C 80 16 131/81 97 Room Air Laboratory Results 06/03/22 06/03/22 06/03/22 Range/Units 11:18 07:30 06:14 WBC (4.8-10.8) K/ul RBC (3.93-5.22) M/uL Hgb (12.0-16.0) g/dl Hct (34.1-44.9) % MCV (80.0-100.0) fL MCH (25.0-34.0) pg MCHC (32.0-36.0) g/dL RDW Std Deviation (36.4-46.3) fL RDW Coeff of Jesika (11.5-14.5) % Plt Count (130-400) K/uL MPV (9.4-12.3) fL Immature Gran % (Auto) % Neut % (Auto) % Lymph % (Auto) % Knott % (Auto) % Eos % (Auto) % Baso % (Auto) % Neut # (Auto) (1.4-6.5) K/uL Lymph # (Auto) (1.2-3.4) K/uL Knott # (Auto) (0.24-0.82) K/uL Eos # (Auto) (0-0.50) K/uL Baso # (Auto) (0-0.2) K/uL Immature Gran # (Auto) (0.00-0.02) K/uL Sodium 135 L (136-145) mmol/L Potassium 4.4 (3.5-5.1) mmol/L Chloride 101 (98-107) mmol/L Carbon Dioxide 29 (21-32) mmol/L Anion Gap 5 (3-11) BUN 14 (6-23) mg/dl Creatinine 0.93 (0.6-1.2) mg/dl Est Cr Clr Drug Dosing 53.5 ml/min Est GFR ( Amer) 65.9 ml/min Est GFR (Non-Af Amer) 56.8 ml/min BUN/Creatinine Ratio 15.1 (10-20) Glucose 128 H (70-99(Fasting)) mg/dl POC Glucose 142 H 142 H (70-99) mg/dl Calcium 8.5 (8.5-10.1) mg/dl Phosphorus 3.4 (2.5-4.9) mg/dl Magnesium 1.6 L (1.7-2.4) mg/dl 06/03/22 06/02/22 06/02/22 Range/Units 06:14 20:15 16:38 WBC 13.51 H (4.8-10.8) K/ul RBC 3.49 L (3.93-5.22) M/uL Hgb 9.4 L (12.0-16.0) g/dl Hct 30.2 L (34.1-44.9) % MCV 86.5 (80.0-100.0) fL MCH 26.9 (25.0-34.0) pg MCHC 31.1 L (32.0-36.0) g/dL RDW Std Deviation 49.6 H (36.4-46.3) fL RDW Coeff of Jesika 15.7 H (11.5-14.5) % Plt Count 353 (130-400) K/uL MPV 9.3 L (9.4-12.3) fL Immature Gran % (Auto) 1.0 % Neut % (Auto) 53.6 % Lymph % (Auto) 26.2 % Knott % (Auto) 14.7 % Eos % (Auto) 4.1 % Baso % (Auto) 0.4 % Neut # (Auto) 7.24 H (1.4-6.5) K/uL Lymph # (Auto) 3.54 H (1.2-3.4) K/uL Knott # (Auto) 1.99 H (0.24-0.82) K/uL Eos # (Auto) 0.56 H (0-0.50) K/uL Baso # (Auto) 0.05 (0-0.2) K/uL Immature Gran # (Auto) 0.13 H (0.00-0.02) K/uL Sodium (136-145) mmol/L Potassium (3.5-5.1) mmol/L Chloride (98-107) mmol/L Carbon Dioxide (21-32) mmol/L Anion Gap (3-11) BUN (6-23) mg/dl Creatinine (0.6-1.2) mg/dl Est Cr Clr Drug Dosing ml/min Est GFR ( Amer) ml/min Est GFR (Non-Af Amer) ml/min BUN/Creatinine Ratio (10-20) Glucose (70-99(Fasting)) mg/dl POC Glucose 203 H 156 H (70-99) mg/dl Calcium (8.5-10.1) mg/dl Phosphorus (2.5-4.9) mg/dl Magnesium (1.7-2.4) mg/dl (1) Diverticulitis large intestine Diverticulitis bleeding: without bleeding Diverticulitis complication: with abscess Qualified Code(s): K57.20 - Diverticulitis of large intestine with perforation and abscess without bleeding
--- NOTE | 2022-06-03 17:35 | Hospitalist Progress Note ---
Date of Service June 03, 2022 Assessment & Plan (1) Diverticulitis large intestine: Plan: Acute severe sigmoid diverticulitis Ongoing symptoms for past 2 months. No improvement with course of oral antibiotics. History of recurrent diverticulitis with prior abscess Currently on iv zosyn, clears Discussed with surgery- plan for repeat CT tomorrow- if complicated diverticulitis or abscess, will need to transfer to tertiary center. CT A/P 1. Advanced colonic diverticulosis with evidence of severe acute sigmoid diverticulitis. 2. No intraperitoneal free air is seen and there is no organized fluid collection identified to suggest abscess on this unenhanced examination. 3. There is a large amount of intraluminal gas within the bladder with findings suspicious for a colovesicular fistula. Clinical correlation will be required. 4. Status post sigmoid colon resection with colocolonic anastomosis. No bowel obstruction is seen. 5. Additional findings as above. (2) Colovesical fistula: Plan: no acute urologic intervention per urology Per surgery and urology- no need for further imaging to confirm- will need evaluation at tertiary center for repair- will discuss with surgery regarding urgency of repair or transfer (3) Sepsis: Plan: plan as above (4) Diabetes mellitus, type 2: Plan: SSI prn (5) COPD (chronic obstructive pulmonary disease): (6) Chronic HFrEF (heart failure with reduced ejection fraction): Plan: will resume home lasix once eating normally. currently looks euvolemic (7) JORDAN (obstructive sleep apnea): Plan: Continue nocturnal O2 (8) Chronic atrial fibrillation: Plan: s/p watchman due to her intolerance of anticoagulation due to bleeding. (9) Subclinical hyperthyroidism: Plan: continue methimazole and BB (10) Chronic respiratory failure with hypoxia and hypercapnia: Plan: continue home oxygen (11) Hypertension: Plan: continue metoprolol, aldactone. BP soft- will monitor Plan Hypomagnesemia- repleted. recheck in am DVT ppx- sc lovenox Dispo- On IV ABx for severe acute diverticulitis. Might need transfer to tertiary center. Plan for repeat CT tomorrow per surgery Admission and Anticipated Discharge Date Admission Date: May 31, 2022 Subjective Feels the same. Denies any worsening of her symptoms. States still has air with urination. Pain about the same. No N/V. Tolerating clears without issues. Has intermittent fever. Physical Exam Physical Exam: General:Sitting comfortably in bed, not in distress, on NC chronically HEENT: EOMI, PERRL, MMM Chest: Clear breath sounds bilaterally, no wheezes or crackles CVS: irregular, normal heart sounds, no murmur Abdomen: Soft, mild LLQ tenderness, not distended, normal bowel sounds Neuro: Awake, alert, oriented, conversing well, non focal Extremities: No edema Results & Data Results & Data ([facility]) Vital Signs (Past 12 Hours) Vital Signs Temp Pulse Resp BP Pulse Ox O2 Del Method O2 Flow Rate 06/03/22 15:40 37.7 C H 99 H 19 94/58 L 94 Nasal Cannula 2.0 06/03/22 14:34 104 H 20 95 Nasal Cannula 2 06/03/22 12:24 37.4 C 108 H 18 93/65 L 96 Nasal Cannula 2.0 06/03/22 11:14 85 18 96 Nasal Cannula 2 06/03/22 08:39 Nasal Cannula 2 06/03/22 07:51 36.9 C 67 18 97/67 L 96 Nasal Cannula 2 06/03/22 07:06 84 18 98 Nasal Cannula 4 Laboratory Results Short CBC 06/03/22 Range/Units 06:14 WBC 13.51 H (4.8-10.8) K/ul Hgb 9.4 L (12.0-16.0) g/dl Hct 30.2 L (34.1-44.9) % Plt Count 353 (130-400) K/uL BMP 06/03/22 06:14 Sodium 135 L Potassium 4.4 Chloride 101 Carbon Dioxide 29 BUN 14 Creatinine 0.93 Glucose 128 H Calcium 8.5 Medications Administered Current Inpatient Medications Albuterol (Albuterol Hfa 8 Gm Inhaler) 2 puffs INH QID PRN PRN Reason: Shortness Of Breath Stop: 06/30/22 20:49 Albuterol (Albuterol Hfa 8 Gm Inhaler (Combivent Respimat P&T Subs)) 1 puffs INH QIDR [facility] Stop: 07/01/22 06:59 Last Admin: 06/03/22 14:21 Dose: 1 puffs Aspirin (Aspirin 81 Mg Ectab) 81 mg PO DAILY [facility] Stop: 07/03/22 08:59 Last Admin: 08/22/22 09:44 Dose: 81 mg Atorvastatin Calcium (Atorvastatin 40 Mg Tab) 40 mg PO HS [facility] Stop: 07/02/22 20:59 Last Admin: 06/02/22 20:18 Dose: 40 mg Bimatoprost (Bimatoprost 0.01% Op Soln 2.5 Ml Btl) 1 drops OP HS [facility] Stop: 07/01/22 20:59 Last Admin: 06/02/22 20:18 Dose: 1 drops Brinzolamide (Brinzolamide (Azopt) Ops 10 Ml Btl) 1 drops OPB BID [facility] Stop: 06/30/22 20:59 Last Admin: 06/03/22 09:43 Dose: 1 drops Dextrose (Dextrose 50% 50 Ml Syringe) 25 - 50 ml IV UD PRN; Protocol PRN Reason: Hypoglycemia Protocol Stop: 07/02/22 19:23 Enoxaparin Sodium (Enoxaparin Inj 40 Mg/0.4 Ml Syr) 40 mg SQ HS [facility] Stop: 07/02/22 20:59 Last Admin: 06/02/22 20:18 Dose: Not Given Glucagon (Glucagon For Inj 1 Mg Vial) 1 mg SQ UD PRN; Protocol PRN Reason: Hypoglycemia Protocol Stop: 07/02/22 19:23 Glucose (Glucose 40% Gel 15 Gm Tube) 15 - 30 gm PO UD PRN; Protocol PRN Reason: Hypoglycemia Protocol Stop: 07/02/22 19:23 Glucose (Glucose 10 Tab/Tube) 4 - 8 tab PO UD PRN; Protocol PRN Reason: Hypoglycemia Treatment Stop: 07/02/22 19:23 Piperacillin Sod/Tazobactam (Sod 3.375 gm/ Dextrose) 115 mls @ 28.75 mls/hr IV Q8H [facility]; Protocol Stop: 06/10/22 21:59 Last Admin: 06/03/22 14:14 Dose: 28.8 mls/hr Acetaminophen (Ofirmev) 1,000 mg in 100 mls @ 400 mls/hr IV Q8H PRN PRN Reason: Pain Stop: 06/03/22 20:49 Insulin Aspart (Insulin Aspart Per Unit) 0 units SC ACHS [facility] Stop: 07/02/22 20:59 Last Admin: 06/03/22 16:56 Dose: Not Given Ipratropium Etlan (Ipratropium Hfa Inhaler (Combivent Respimat P&T Subs)) 1 puffs INH QIDR [facility] Stop: 07/01/22 06:59 Last Admin: 06/03/22 14:21 Dose: 1 puffs Lidocaine (Lidocaine 4% Cream 15 Gm Tube) 1 appln EXT BID [facility] Stop: 07/01/22 11:59 Last Admin: 06/03/22 09:44 Dose: 1 appln Methimazole (Methimazole 5 Mg Tablet) 2.5 mg PO DAILY [facility] Stop: 07/02/22 10:29 Last Admin: 06/03/22 09:40 Dose: 2.5 mg Metoprolol Tartrate (Metoprolol Tartrate 25 Mg Tab) 25 mg PO QAM [facility] Stop: 07/02/22 10:29 Last Admin: 06/03/22 09:43 Dose: Not Given Metoprolol Tartrate (Metoprolol Tartrate 25 Mg Tab) 12.5 mg PO QPM [facility] Stop: 07/02/22 20:59 Last Admin: 06/02/22 20:20 Dose: 12.5 mg Miscellaneous (Zafirlukast: Order Awaiting Action) 1 each N/A QS [facility] Stop: 07/02/22 15:59 Last Admin: 06/03/22 16:56 Dose: Not Given Miscellaneous (Carbohydrates For Hypoglycemia ) 15 - 30 gm PO UD PRN PRN Reason: Hypoglycemia Protocol Stop: 07/02/22 19:23 Morphine Sulfate (Morphine Sulfate 2 Mg/Ml Carp) 3 mg IV Q4H PRN PRN Reason: severe Pain Stop: 06/14/22 19:50 Last Admin: 06/03/22 14:18 Dose: 3 mg Ondansetron HCl (Ondansetron Inj 2 Mg/Ml 2 Ml Vial) 4 mg IV Q6H PRN PRN Reason: Nausea Stop: 06/30/22 20:49 Pantoprazole Sodium (Pantoprazole 40 Mg Tab) 40 mg PO BID [facility]; Protocol Stop: 07/02/22 20:59 Last Admin: 06/03/22 09:42 Dose: 40 mg Sertraline HCl (Sertraline Hcl 50 Mg Tablet) 25 mg PO DAILY [facility] Stop: 07/03/22 08:59 Last Admin: 06/03/22 09:42 Dose: 25 mg Spironolactone (Spironolactone 12.5 Mg Tab) 12.5 mg PO MoWeFr@0900 [facility] Stop: 07/03/22 08:59 Last Admin: 06/03/22 09:40 Dose: 12.5 mg Umeclidinium Etlan (Umeclidinium Etlan 62.5mcg/Blister 7 Puffs/Inhaler) 1 puffs INH DAILY [facility] Stop: 07/01/22 08:59 Last Admin: 06/03/22 09:45 Dose: 1 puffs (1) Diverticulitis large intestine Diverticulitis bleeding: without bleeding Diverticulitis complication: with abscess Qualified Code(s): K57.20 - Diverticulitis of large intestine with perforation and abscess without bleeding (2) COPD (chronic obstructive pulmonary disease) COPD type: COPD with acute exacerbation Qualified Code(s): J44.1 - Chronic obstructive pulmonary disease with (acute) exacerbation
[2022-06-03] MEDS: BIMATOPROST 0.01% OP SOLN 2.5 ML BTL OP SCH (21:22)
[2022-06-03] MEDS: ATORVASTATIN 40 MG TAB PO SCH (21:22)
[2022-06-03] MEDS: ENOXAPARIN INJ 40 MG/0.4 ML SYR SQ SCH (21:23)
[2022-06-04] MEDS: MoRPHine SULFATE 2 MG/ML CARP IV PRN ×5 (04:45→20:36)
[2022-06-04] MEDS: PIPERACILLIN/TAZOBACTAM 3.375 GM in DEXTROSE 5% 100 ML IV SCH ×3 (05:45→20:51)
[2022-06-04] MEDS: Albuterol HFA 8 GM Inhaler (Combivent Respimat P&T Subs) INH SCH ×4 (07:11→19:39)
[2022-06-04] MEDS: Ipratropium HFA Inhaler (Combivent Respimat P&T Subs) INH SCH ×4 (07:11→19:40)
[2022-06-04 07:29] LABS: Basophils # (auto) 0.04 K/uL (0-0.2); Basophils % (auto) 0.3 %; Eosinophils # (auto) 0.68 K/uL (0-0.50); Eosinophils % (auto) 5.4 %; Hemoglobin 9.2 g/dl (12.0-16.0); Immature Granulocytes # (auto) 0.09 K/uL (0.00-0.02); Immature Granulocytes % (auto) 0.7 %; Lymphocytes # (auto) 2.56 K/uL (1.2-3.4); Lymphocytes % (auto) 20.2 %; Mean Corpuscular Hemoglobin 26.9 pg (25.0-34.0); Mean Corpuscular Hgb Conc 30.7 g/dL (32.0-36.0); Mean Corpuscular Volume 87.7 fL (80.0-100.0); Mean Platelet Volume 9.5 fL (9.4-12.3); Monocytes # (auto) 1.67 K/uL (0.24-0.82); Monocytes % (auto) 13.2 %; Neutrophils # (auto) 7.63 K/uL (1.4-6.5); Neutrophils % (auto) 60.2 %; Platelet Count 339 K/uL (130-400); RDW Coefficient of Variation 15.4 % (11.5-14.5); RDW Standard Deviation 49.4 fL (36.4-46.3); Red Blood Count 3.42 M/uL (3.93-5.22); White Blood Count 12.67 K/ul (4.8-10.8)
[2022-06-04 07:49] LABS: BUN Creatinine Ratio 13.8 (10-20); Calcium 8.5 mg/dl (8.5-10.1); Creatinine Clr Calc Pharmacy 57.9 ml/min; Est GFR (African American) 71.4 ml/min; Est GFR (Non-African American) 61.6 ml/min; Magnesium 1.7 mg/dl (1.7-2.4); Phosphorus 3.2 mg/dl (2.5-4.9)
[2022-06-04] MEDS: INSULIN ASPART PER UNIT SC SCH ×4 (08:07→20:46)
[2022-06-04] MEDS: ASPIRIN 81 MG ECTAB PO SCH (08:09)
[2022-06-04] MEDS: PANTOprazole 40 MG TAB PO SCH ×2 (08:09→20:41)
[2022-06-04] MEDS: SERTRALINE HCL 50 MG TABLET PO SCH (08:10)
[2022-06-04] MEDS: METOPROLOL TARTRATE 25 MG TAB PO SCH ×2 (08:10→20:38)
[2022-06-04] MEDS: methIMAzole 5 MG TABLET PO SCH (08:10)
[2022-06-04] MEDS: LIDOCAINE 4% CREAM 15 GM TUBE EXT SCH ×2 (08:11→20:41)
[2022-06-04] MEDS: BRINZOLAMIDE (AZOPT) OPS 10 ML BTL OPB SCH ×2 (08:11→20:40)
[2022-06-04] MEDS: UMECLIDINIUM BROMIDE 62.5MCG/BLISTER 7 PUFFS/INHALER INH SCH (08:11)
[2022-06-04] MEDS ORDERED: diphenhydrAMINE Capsule 25 MG CAP PO ONE (11:44)
--- NOTE | 2022-06-04 12:01 | Hospitalist Progress Note ---
Date of Service June 04, 2022 Assessment & Plan (1) Diverticulitis large intestine: Plan: Acute severe sigmoid diverticulitis Ongoing symptoms for past 2 months. No improvement with course of oral antibiotics. History of recurrent diverticulitis with prior abscess Currently on iv zosyn, clears OP CT reviewed- tried discussing with our radiologist here to compare- i was unable to reach. Discussed with surgery- plan for repeat CT today with premedi cation for her dye allergy- if complicated diverticulitis or abscess, will need to transfer to tertiary center. CT A/P 1. Advanced colonic diverticulosis with evidence of severe acute sigmoid diverticulitis. 2. No intraperitoneal free air is seen and there is no organized fluid collection identified to suggest abscess on this unenhanced examination. 3. There is a large amount of intraluminal gas within the bladder with findings suspicious for a colovesicular fistula. Clinical correlation will be required. 4. Status post sigmoid colon resection with colocolonic anastomosis. No bowel obstruction is seen. 5. Additional findings as above. (2) Colovesical fistula: Plan: no acute urologic intervention per urology Per surgery and urology- no need for further imaging to confirm- will need evaluation at tertiary center for repair- will discuss with surgery regarding urgency of repair or transfer (3) Sepsis: Plan: plan as above (4) Diabetes mellitus, type 2: Plan: SSI prn (5) COPD (chronic obstructive pulmonary disease): (6) Chronic HFrEF (heart failure with reduced ejection fraction): Plan: will resume home lasix once eating normally. currently looks euvolemic (7) JORDAN (obstructive sleep apnea): Plan: Continue nocturnal O2 (8) Chronic atrial fibrillation: Plan: s/p watchman due to her intolerance of anticoagulation due to bleeding. (9) Subclinical hyperthyroidism: Plan: continue methimazole and BB (10) Chronic respiratory failure with hypoxia and hypercapnia: Plan: continue home oxygen (11) Hypertension: Plan: continue metoprolol, aldactone. BP soft- will monitor Plan Hypomagnesemia- resolved DVT ppx- sc lovenox Dispo- On IV ABx for severe acute diverticulitis. Repeat CT today- if abscess or complicated diverticulitis, will need transfer to tertiary center. Discussed with surgery. Admission and Anticipated Discharge Date Admission Date: May 31, 2022 Subjective Pain was worse this morning but now improved. No fever, chills, N/V, CP, SOB. Tolerating clears. Having loose BM. Still air in urine. Physical Exam Physical Exam: General:Lying comfortably in bed, not in distress, on NC chronically HEENT: EOMI, PERRL, MMM Chest: Clear breath sounds bilaterally, no wheezes or crackles CVS: irregular, normal heart sounds, no murmur Abdomen: Soft, mild LLQ tenderness, not distended, normal bowel sounds Neuro: Awake, alert, oriented, conversing well, non focal Extremities: No edema Results & Data Results & Data ([facility]) Vital Signs (Past 12 Hours) Vital Signs Temp Pulse Resp BP Pulse Ox O2 Del Method O2 Flow Rate 06/04/22 11:26 37.2 C 77 18 96/57 L 93 Nasal Cannula 1 06/04/22 11:19 Nasal Cannula 2 06/04/22 11:07 96 H 16 98 Nasal Cannula 2 06/04/22 07:21 36.8 C 94 H 18 94/61 L 93 Nasal Cannula 1 06/04/22 07:13 96 H 16 98 Nasal Cannula 2 06/04/22 03:37 36.4 C L 99 H 18 99/61 L 99 Nasal Cannula 4 06/04/22 00:09 36.8 C 83 18 120/79 99 Nasal Cannula 4 Laboratory Results Short CBC 06/04/22 Range/Units 06:28 WBC 12.67 H (4.8-10.8) K/ul Hgb 9.2 L (12.0-16.0) g/dl Hct 30.0 L (34.1-44.9) % Plt Count 339 (130-400) K/uL BMP 06/04/22 06:28 Sodium 134 L Potassium 4.0 Chloride 101 Carbon Dioxide 28 BUN 12 Creatinine 0.87 Glucose 108 H Calcium 8.5 Medications Administered Current Inpatient Medications Albuterol (Albuterol Hfa 8 Gm Inhaler) 2 puffs INH QID PRN PRN Reason: Shortness Of Breath Stop: 06/30/22 20:49 Albuterol (Albuterol Hfa 8 Gm Inhaler (Combivent Respimat P&T Subs)) 1 puffs INH QIDR [facility] Stop: 07/01/22 06:59 Last Admin: 06/04/22 11:06 Dose: 1 puffs Aspirin (Aspirin 81 Mg Ectab) 81 mg PO DAILY [facility] Stop: 07/03/22 08:59 Last Admin: 06/04/22 08:09 Dose: 81 mg Atorvastatin Calcium (Atorvastatin 40 Mg Tab) 40 mg PO HS [facility] Stop: 07/02/22 20:59 Last Admin: 06/03/22 21:22 Dose: 40 mg Bimatoprost (Bimatoprost 0.01% Op Soln 2.5 Ml Btl) 1 drops OP HS [facility] Stop: 07/01/22 20:59 Last Admin: 06/03/22 21:22 Dose: 1 drops Brinzolamide (Brinzolamide (Azopt) Ops 10 Ml Btl) 1 drops OPB BID [facility] Stop: 06/30/22 20:59 Last Admin: 06/04/22 08:11 Dose: 1 drops Dextrose (Dextrose 50% 50 Ml Syringe) 25 - 50 ml IV UD PRN; Protocol PRN Reason: Hypoglycemia Protocol Stop: 07/02/22 19:23 Enoxaparin Sodium (Enoxaparin Inj 40 Mg/0.4 Ml Syr) 40 mg SQ HS [facility] Stop: 07/02/22 20:59 Last Admin: 06/03/22 21:23 Dose: Not Given Glucagon (Glucagon For Inj 1 Mg Vial) 1 mg SQ UD PRN; Protocol PRN Reason: Hypoglycemia Protocol Stop: 07/02/22 19:23 Glucose (Glucose 40% Gel 15 Gm Tube) 15 - 30 gm PO UD PRN; Protocol PRN Reason: Hypoglycemia Protocol Stop: 07/02/22 19:23 Glucose (Glucose 10 Tab/Tube) 4 - 8 tab PO UD PRN; Protocol PRN Reason: Hypoglycemia Treatment Stop: 07/02/22 19:23 Piperacillin Sod/Tazobactam (Sod 3.375 gm/ Dextrose) 115 mls @ 28.75 mls/hr IV Q8H [facility]; Protocol Stop: 06/10/22 21:59 Last Infusion: 06/04/22 10:32 Dose: Infused Insulin Aspart (Insulin Aspart Per Unit) 0 units SC ACHS [facility] Stop: 07/02/22 20:59 Last Admin: 06/04/22 08:07 Dose: Not Given Ipratropium [place] (Ipratropium Hfa Inhaler (Combivent Respimat P&T Subs)) 1 puffs INH QIDR [facility] Stop: 07/01/22 06:59 Last Admin: 06/04/22 11:06 Dose: 1 puffs Lidocaine (Lidocaine 4% Cream 15 Gm Tube) 1 appln EXT BID [facility] Stop: 07/01/22 11:59 Last Admin: 06/04/22 08:11 Dose: 1 appln Methimazole (Methimazole 5 Mg Tablet) 2.5 mg PO DAILY [facility] Stop: 07/02/22 10:29 Last Admin: 06/04/22 08:10 Dose: 2.5 mg Metoprolol Tartrate (Metoprolol Tartrate 25 Mg Tab) 25 mg PO QAM [facility] Stop: 07/02/22 10:29 Last Admin: 06/04/22 08:10 Dose: Not Given Metoprolol Tartrate (Metoprolol Tartrate 25 Mg Tab) 12.5 mg PO QPM [facility] Stop: 07/02/22 20:59 Last Admin: 06/03/22 21:30 Dose: Not Given Miscellaneous (Zafirlukast: Order Awaiting Action) 1 each N/A QS [facility] Stop: 07/02/22 15:59 Last Admin: 06/04/22 08:13 Dose: Not Given Miscellaneous (Carbohydrates For Hypoglycemia ) 15 - 30 gm PO UD PRN PRN Reason: Hypoglycemia Protocol Stop: 07/02/22 19:23 Morphine Sulfate (Morphine Sulfate 2 Mg/Ml Carp) 3 mg IV Q4H PRN PRN Reason: severe Pain Stop: 06/14/22 19:50 Last Admin: 06/04/22 11:08 Dose: 3 mg Ondansetron HCl (Ondansetron Inj 2 Mg/Ml 2 Ml Vial) 4 mg IV Q6H PRN PRN Reason: Nausea Stop: 06/30/22 20:49 Pantoprazole Sodium (Pantoprazole 40 Mg Tab) 40 mg PO BID [facility]; Protocol Stop: 07/02/22 20:59 Last Admin: 06/04/22 08:09 Dose: 40 mg Sertraline HCl (Sertraline Hcl 50 Mg Tablet) 25 mg PO DAILY [facility] Stop: 07/03/22 08:59 Last Admin: 06/04/22 08:10 Dose: 25 mg Spironolactone (Spironolactone 12.5 Mg Tab) 12.5 mg PO MoWeFr@0900 [facility] Stop: 07/03/22 08:59 Last Admin: 06/03/22 09:40 Dose: 12.5 mg Umeclidinium [place] (Umeclidinium [place] 62.5mcg/Blister 7 Puffs/Inhaler) 1 puffs INH DAILY [facility] Stop: 07/01/22 08:59 Last Admin: 06/04/22 08:11 Dose: 1 puffs (1) Diverticulitis large intestine Diverticulitis bleeding: without bleeding Diverticulitis complication: with abscess Qualified Code(s): K57.20 - Diverticulitis of large intestine with perforation and abscess without bleeding (2) COPD (chronic obstructive pulmonary disease) COPD type: COPD with acute exacerbation Qualified Code(s): J44.1 - Chronic obstructive pulmonary disease with (acute) exacerbation
--- NOTE | 2022-06-04 13:47 | Surgery Progress Note ---
Date of Service June 04, 2022 Assessment & Plan (1) Diverticulitis large intestine: Plan: 81 yr old woman with multiple medical comorbidities now presents with recurrent diverticulitis of sigmoid colon with evidence of colovesical fistula on CT scan. -afebrile today - mild improvement of leukocytosis to 12K today (13k yesterday) - abdominal pain the same, still requiring IV morphine with no significant improvement since admission Plan: Since there is no significant improvement of her pain since admission, 5 days of IV antibiotics, and need for IV morphine would recommend repeating CT scan with IV and oral contrast today. Will premedicate given contrast allergy. Also discussed with medicine team consideration of transfer to tertiary center given no improvement of symptoms with 5 days of conservative management. continue IV antibiotics. Dr. Smiley has seen pt, agrees with above. Admission and Anticipated Discharge Date Admission Date: May 31, 2022 Supervising Physician Co-Signing Physician Notes I have seen and examined the patient personally and agree with the above assessment and plan. We will continue conservative management at this time. She has not shown significant improvement, and we will repeat her CT scan tomorrow. We will start premedication for her contrast allergy today. If she continues to have significant inflammation or if she worsens, she will need to be transferred to a tertiary care center for definitive management of this issue. We will continue to follow. Subjective states she had pain this morning on the left abdomen but feeling better since Morphine. Pain is about the same but no significant improvement since admission. No n,v still tolerating clear liquids loose bowel movements without blood no fevers or sweats last night clarified with patient that she has never had surgery on her large int estine/colon in the past. Had surgery for bowel obstruction in past at [facility]. Physical Exam Constitutional: WD/WN, vitals as above + obese and cooperative; no acute distress, not ill appearing and not combative Neck: normal visual inspection and trachea midline Respiratory: normal respiratory effort; no respiratory distress and no labored breathing on oxygen via nasal cannula Gastrointestinal (Abdomen): Inspection/Auscultation: abdomen normal to inspection and + abdominal surgical scar (midline laparotomy scar); abdomen not distended Percussion/Palpation: + abdomen tender (LUQ and LLQ on deep palpation) and abdomen soft; no guarding and abdomen not rigid Skin: no rashes, warm and dry Psychiatric: Orientation: alert and oriented x 3 Results & Data ([facility]) Vital Signs (Past 12 Hours) Vital Signs Temp Pulse Resp BP Pulse Ox O2 Del Method O2 Flow Rate 06/04/22 11:26 37.2 C 77 18 96/57 L 93 Nasal Cannula 1 06/04/22 11:19 Nasal Cannula 2 06/04/22 11:07 96 H 16 98 Nasal Cannula 2 06/04/22 07:21 36.8 C 94 H 18 94/61 L 93 Nasal Cannula 1 06/04/22 07:13 96 H 16 98 Nasal Cannula 2 06/04/22 03:37 36.4 C L 99 H 18 99/61 L 99 Nasal Cannula 4 Laboratory Results 06/04/22 06/04/22 06/04/22 Range/Units 11:24 07:19 06:28 WBC (4.8-10.8) K/ul RBC (3.93-5.22) M/uL Hgb (12.0-16.0) g/dl Hct (34.1-44.9) % MCV (80.0-100.0) fL MCH (25.0-34.0) pg MCHC (32.0-36.0) g/dL RDW Std Deviation (36.4-46.3) fL RDW Coeff of Jesika (11.5-14.5) % Plt Count (130-400) K/uL MPV (9.4-12.3) fL Immature Gran % (Auto) % Neut % (Auto) % Lymph % (Auto) % [place] % (Auto) % Eos % (Auto) % Baso % (Auto) % Neut # (Auto) (1.4-6.5) K/uL Lymph # (Auto) (1.2-3.4) K/uL [place] # (Auto) (0.24-0.82) K/uL Eos # (Auto) (0-0.50) K/uL Baso # (Auto) (0-0.2) K/uL Immature Gran # (Auto) (0.00-0.02) K/uL Sodium 134 L (136-145) mmol/L Potassium 4.0 (3.5-5.1) mmol/L Chloride 101 (98-107) mmol/L Carbon Dioxide 28 (21-32) mmol/L Anion Gap 5 (3-11) BUN 12 (6-23) mg/dl Creatinine 0.87 (0.6-1.2) mg/dl Est Cr Clr Drug Dosing 57.9 ml/min Est GFR ( Amer) 71.4 ml/min Est GFR (Non-Af Amer) 61.6 ml/min BUN/Creatinine Ratio 13.8 (10-20) Glucose 108 H (70-99(Fasting)) mg/dl POC Glucose 158 H 124 H (70-99) mg/dl Calcium 8.5 (8.5-10.1) mg/dl Phosphorus 3.2 (2.5-4.9) mg/dl Magnesium 1.7 (1.7-2.4) mg/dl 06/04/22 06/03/22 06/03/22 Range/Units 06:28 20:32 16:05 WBC 12.67 H (4.8-10.8) K/ul RBC 3.42 L (3.93-5.22) M/uL Hgb 9.2 L (12.0-16.0) g/dl Hct 30.0 L (34.1-44.9) % MCV 87.7 (80.0-100.0) fL MCH 26.9 (25.0-34.0) pg MCHC 30.7 L (32.0-36.0) g/dL RDW Std Deviation 49.4 H (36.4-46.3) fL RDW Coeff of Jesika 15.4 H (11.5-14.5) % Plt Count 339 (130-400) K/uL MPV 9.5 (9.4-12.3) fL Immature Gran % (Auto) 0.7 % Neut % (Auto) 60.2 % Lymph % (Auto) 20.2 % [place] % (Auto) 13.2 % Eos % (Auto) 5.4 % Baso % (Auto) 0.3 % Neut # (Auto) 7.63 H (1.4-6.5) K/uL Lymph # (Auto) 2.56 (1.2-3.4) K/uL [place] # (Auto) 1.67 H (0.24-0.82) K/uL Eos # (Auto) 0.68 H (0-0.50) K/uL Baso # (Auto) 0.04 (0-0.2) K/uL Immature Gran # (Auto) 0.09 H (0.00-0.02) K/uL Sodium (136-145) mmol/L Potassium (3.5-5.1) mmol/L Chloride (98-107) mmol/L Carbon Dioxide (21-32) mmol/L Anion Gap (3-11) BUN (6-23) mg/dl Creatinine (0.6-1.2) mg/dl Est Cr Clr Drug Dosing ml/min Est GFR ( Amer) ml/min Est GFR (Non-Af Amer) ml/min BUN/Creatinine Ratio (10-20) Glucose (70-99(Fasting)) mg/dl POC Glucose 208 H 148 H (70-99) mg/dl Calcium (8.5-10.1) mg/dl Phosphorus (2.5-4.9) mg/dl Magnesium (1.7-2.4) mg/dl (1) Diverticulitis large intestine Diverticulitis bleeding: without bleeding Diverticulitis complication: with abscess Qualified Code(s): K57.20 - Diverticulitis of large intestine with perforation and abscess without bleeding
[2022-06-04] MEDS ORDERED: methylPREDNISolone 40 MG in SYRINGE 0 ML IV ONE ×2 (14:00→17:00)
[2022-06-04] MEDS ORDERED: diphenhydrAMINE 50 MG/ML VIAL IV ONE ×2 (15:58→17:00)
[2022-06-04] MEDS ORDERED: predniSONE 50 MG TAB PO SCH ×2 (18:00→19:45)
[2022-06-04] MEDS ORDERED: OPTIRAY 300 500mL IV ONE (18:07)
--- NOTE | 2022-06-04 18:30 | CT Scan Report ---
CT OF THE ABDOMEN AND PELVIS WITH CONTRAST CLINICAL HISTORY: Sigmoid diverticulitis. Increasing pain. Intermittent fever. COMPARISON STUDY: CT of the abdomen and pelvis May 31, 2022. TECHNIQUE: Patient was premedicated for IV dye allergy. Following IV administration of 90 mL of Optir ay, axial images of the abdomen and pelvis were obtained from the lung bases to the proximal femurs. Images were reviewed in the axial, sagittal, and coronal planes. IV contrast was administered without complication. Automated exposure control was utilized for the study. A dose lowering technique was utilized adhering to the principles of ALARA. CT DOSE: 1355.83 mGy.cm FINDINGS: Lung bases are unremarkable. Cardiomegaly is noted. The gallbladder is not visualized. Ther e is no significant biliary ductal dilatation. Spleen and pancreas are unremarkable. There is a 2.2 c m right renal cyst. There is no hydronephrosis. A 2 cm left adrenal nodule is unchanged from earlier exams. This is benign given stability. There is no evidence for a bowel obstruction. Extensive sigmoi d diverticulosis is noted with circumferential wall thickening of the sigmoid colon with pericolonic inflammation. This is similar to CT of May 31, 2022. Possible post surgical findings within the si gmoid colon are noted. Several small fluid and gas containing pericolonic collections measure up to 2 cm. These are along the superior aspect of the mid sigmoid colon. No drainable fluid collection is p resent. Large amount of gas within the bladder is noted. There is bladder wall thickening with adjace nt stranding. A probable colovesicular fistula shown on axial image 313 of [id number]. Possible fluid within the endometrial canal is again noted. This was shown on prior exams. There is slight asymmetric prom inence of the left ovary. IMPRESSION: 1. Findings consistent with acute sigmoid diverticulitis. Several small gas and fluid containing madelin colonic collections suggest contained perforation with small abscess formation. Suspected colovesicul ar fistula with large amount of gas within the bladder with bladder wall thickening and adjacent stra nding. 2. Nonspecific fluid within the endometrial cavity which has been shown on prior exams. 3. No bowel obstruction. ACT 112: Negative or not required by law. Electronically signed by: Shadi Ravi M.D. 06/04/2022 6:27 PM
[2022-06-04] MEDS: ENOXAPARIN INJ 40 MG/0.4 ML SYR SQ SCH (20:38)
[2022-06-04] MEDS: BIMATOPROST 0.01% OP SOLN 2.5 ML BTL OP SCH (20:40)
[2022-06-04] MEDS: ATORVASTATIN 40 MG TAB PO SCH (20:42)
[2022-06-05] MEDS: MoRPHine SULFATE 2 MG/ML CARP IV PRN ×3 (04:54→20:35)
[2022-06-05] MEDS: PIPERACILLIN/TAZOBACTAM 3.375 GM in DEXTROSE 5% 100 ML IV SCH ×3 (06:07→22:11)
[2022-06-05 06:11] LABS: Hematocrit (blood only) 29.4 % (34.1-44.9); Mean Corpuscular Hemoglobin 26.4 pg (25.0-34.0); Mean Corpuscular Hgb Conc 30.6 g/dL (32.0-36.0); Mean Corpuscular Volume 86.2 fL (80.0-100.0); Mean Platelet Volume 9.4 fL (9.4-12.3); Platelet Count 358 K/uL (130-400); RDW Coefficient of Variation 15.1 % (11.5-14.5); RDW Standard Deviation 47.5 fL (36.4-46.3); Red Blood Count 3.41 M/uL (3.93-5.22); White Blood Count 8.73 K/ul (4.8-10.8)
[2022-06-05 06:40] LABS: BUN Creatinine Ratio 13.9 (10-20); Calcium 8.9 mg/dl (8.5-10.1); Creatinine Clr Calc Pharmacy 64.4 ml/min; Est GFR (African American) 80.2 ml/min; Est GFR (Non-African American) 69.2 ml/min; Magnesium 1.7 mg/dl (1.7-2.4); Potassium 3.9 mmol/L (3.5-5.1)
[2022-06-05] MEDS: Albuterol HFA 8 GM Inhaler (Combivent Respimat P&T Subs) INH SCH ×4 (06:57→19:22)
[2022-06-05] MEDS: Ipratropium HFA Inhaler (Combivent Respimat P&T Subs) INH SCH ×4 (06:57→19:22)
[2022-06-05] MEDS: PANTOprazole 40 MG TAB PO SCH ×2 (08:47→20:41)
[2022-06-05] MEDS: SERTRALINE HCL 50 MG TABLET PO SCH (08:47)
[2022-06-05] MEDS: ASPIRIN 81 MG ECTAB PO SCH (08:47)
[2022-06-05] MEDS: methIMAzole 5 MG TABLET PO SCH (08:47)
[2022-06-05] MEDS: SPIRONOLACTONE 12.5 MG TAB PO SCH (08:48)
[2022-06-05] MEDS: BRINZOLAMIDE (AZOPT) OPS 10 ML BTL OPB SCH ×2 (08:48→20:40)
[2022-06-05] MEDS: METOPROLOL TARTRATE 25 MG TAB PO SCH ×2 (08:48→20:39)
[2022-06-05] MEDS: UMECLIDINIUM BROMIDE 62.5MCG/BLISTER 7 PUFFS/INHALER INH SCH (08:49)
[2022-06-05] MEDS: LIDOCAINE 4% CREAM 15 GM TUBE EXT SCH ×2 (08:49→20:40)
[2022-06-05] MEDS: INSULIN ASPART PER UNIT SC SCH ×4 (08:51→20:31)
--- NOTE | 2022-06-05 11:44 | Surgery Progress Note ---
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 - afebrile today - Leukocytosis resolved - abdominal pain Slightly improved today but still requiring IV morphine. - Repeat CT scan of the abdomen pelvis with oral and IV contrast 06/04/2022 showed evidence of persistent sigmoid diverticulitis with evidence of microperforation and possible developing abscess. In comparison to her outpatient CT scan on May 28 the size of the abscess has slightly decreased in size however she still has the colovesicular fistula significant bladder wall thickening and air in the bladder. Plan: Although patient feels better today in regards to pain and her leukocytosis has resolved her repeat CT scan yesterday (06/04/2022) still showing evidence of complicated diverticulitis with evidence of a microperforation as well as a colovesicular fistula. This colovesicular fistula is new compared to prior episodes of diverticulitis. She has required IV antibiotics on discharge in the past as well as being seen by infectious disease. Discussed with the hospitalist team about [email or web address] about possible transfer or needing close outpatient follow-up. She may require IV antibiotics with a PICC line on discharge pending discussion with tertiary center Continue clear liquids for now Continue IV antibiotics Discussed with Dr. Smiley who agrees with above. Admission and Anticipated Discharge Date Admission Date: May 31, 2022 Supervising Physician Co-Signing Physician Notes I have seen and examined the patient personally and agree with the above assessment plan. She continues to have ongoing pain and tenderness. She is not significantly improved. CT scan demonstrates slight worsening of the inflammation as well as continued demonstration of what appears to be a colovesical fistula. She has been on antibiotics for 6 days now. I would recommend transfer to tertiary care center for consideration of surgery as she does not appear to be improving and she is not a surgical candidate for this hospital. Subjective feeling slightly better this am pain slightly improved but still required 3 mg IV Morphine at 4 am no n,v tolerating clear liquids passing flatus, less diarrhea still passing gas within urine stream Patient states that she had prior IV Antibiotics at home in which her daughter helped her. She Also states that she was evaluated by infectious disease on a prior admission but she is unsure when this occurred. Physical Exam Constitutional: WD/WN, vitals as above + obese, cooperative and comfortable; no acute distress and not ill appearing Neck: normal visual inspection; + trachea not midline Respiratory: normal respiratory effort; no respiratory distress and no labored breathing Oxygen via nasal cannula Gastrointestinal (Abdomen): Inspection/Auscultation: abdomen normal to inspection and + abdominal surgical scar (Midline laparotomy scar); abdomen not distended Percussion/Palpation: + abdomen tender (Left lower quadrant and left upper quadrant on deep palpation) and abdomen soft; no guarding and abdomen not rigid Skin: no rashes, warm and dry Psychiatric: Orientation: alert and oriented x 3 Results & Data ([facility]) Vital Signs (Past 12 Hours) Vital Signs Temp Pulse Pulse Resp BP BP Pulse Ox 06/05/22 11:32 37.0 C 78 19 95/61 L 96 06/05/22 11:06 77 18 97 06/05/22 10:18 06/05/22 08:01 65 06/05/22 07:30 36.9 C 88 20 176/68 H 97 06/05/22 06:58 73 16 99 06/05/22 04:00 36.3 C L 75 18 116/62 97 06/04/22 23:48 36.8 C 77 18 105/71 97 O2 Del Method O2 Flow Rate 06/05/22 11:32 Nasal Cannula 2 06/05/22 11:06 Nasal Cannula 2 06/05/22 10:18 Nasal Cannula 2 06/05/22 08:01 06/05/22 07:30 Nasal Cannula 2 06/05/22 06:58 Nasal Cannula 4 06/05/22 04:00 Nasal Cannula 4 06/04/22 23:48 Nasal Cannula 4 Laboratory Results 06/05/22 06/05/22 06/05/22 Range/Units 11:31 07:29 05:53 WBC 8.73 (4.8-10.8) K/ul RBC 3.41 L (3.93-5.22) M/uL Hgb 9.0 L (12.0-16.0) g/dl Hct 29.4 L (34.1-44.9) % MCV 86.2 (80.0-100.0) fL MCH 26.4 (25.0-34.0) pg MCHC 30.6 L (32.0-36.0) g/dL RDW Std Deviation 47.5 H (36.4-46.3) fL RDW Coeff of Jesika 15.1 H (11.5-14.5) % Plt Count 358 (130-400) K/uL MPV 9.4 (9.4-12.3) fL Sodium (136-145) mmol/L Potassium (3.5-5.1) mmol/L Chloride (98-107) mmol/L Carbon Dioxide (21-32) mmol/L Anion Gap (3-11) BUN (6-23) mg/dl Creatinine (0.6-1.2) mg/dl Est Cr Clr Drug Dosing ml/min Est GFR ( Amer) ml/min Est GFR (Non-Af Amer) ml/min BUN/Creatinine Ratio (10-20) Glucose (70-99(Fasting)) mg/dl POC Glucose 221 H 159 H (70-99) mg/dl Calcium (8.5-10.1) mg/dl Magnesium (1.7-2.4) mg/dl 06/05/22 06/05/22 06/04/22 Range/Units 05:53 00:10 20:42 WBC (4.8-10.8) K/ul RBC (3.93-5.22) M/uL Hgb (12.0-16.0) g/dl Hct (34.1-44.9) % MCV (80.0-100.0) fL MCH (25.0-34.0) pg MCHC (32.0-36.0) g/dL RDW Std Deviation (36.4-46.3) fL RDW Coeff of Jesika (11.5-14.5) % Plt Count (130-400) K/uL MPV (9.4-12.3) fL Sodium 132 L (136-145) mmol/L Potassium 3.9 (3.5-5.1) mmol/L Chloride 99 (98-107) mmol/L Carbon Dioxide 28 (21-32) mmol/L Anion Gap 5 (3-11) BUN 11 (6-23) mg/dl Creatinine 0.79 (0.6-1.2) mg/dl Est Cr Clr Drug Dosing 64.4 ml/min Est GFR ( Amer) 80.2 ml/min Est GFR (Non-Af Amer) 69.2 ml/min BUN/Creatinine Ratio 13.9 (10-20) Glucose 146 H (70-99(Fasting)) mg/dl POC Glucose 242 H 335 H* (70-99) mg/dl Calcium 8.9 (8.5-10.1) mg/dl Magnesium 1.7 (1.7-2.4) mg/dl 06/04/22 06/04/22 Range/Units 20:40 16:14 WBC (4.8-10.8) K/ul RBC (3.93-5.22) M/uL Hgb (12.0-16.0) g/dl Hct (34.1-44.9) % MCV (80.0-100.0) fL MCH (25.0-34.0) pg MCHC (32.0-36.0) g/dL RDW Std Deviation (36.4-46.3) fL RDW Coeff of Jesika (11.5-14.5) % Plt Count (130-400) K/uL MPV (9.4-12.3) fL Sodium (136-145) mmol/L Potassium (3.5-5.1) mmol/L Chloride (98-107) mmol/L Carbon Dioxide (21-32) mmol/L Anion Gap (3-11) BUN (6-23) mg/dl Creatinine (0.6-1.2) mg/dl Est Cr Clr Drug Dosing ml/min Est GFR ( Amer) ml/min Est GFR (Non-Af Amer) ml/min BUN/Creatinine Ratio (10-20) Glucose (70-99(Fasting)) mg/dl POC Glucose 333 H* 177 H (70-99) mg/dl Calcium (8.5-10.1) mg/dl Magnesium (1.7-2.4) mg/dl Diagnostic Findings CT OF THE ABDOMEN AND PELVIS WITH CONTRAST 06/04/2022 CLINICAL HISTORY: Sigmoid diverticulitis. Increasing pain. Intermittent fever. COMPARISON STUDY: CT of the abdomen and pelvis May 31, 2022. TECHNIQUE: Patient was premedicated for IV dye allergy. Following IV administration of 90 mL of Optiray, axial images of the abdomen and pelvis were obtained from the lung bases to the proximal femurs. Images were reviewed in the axial, sagittal, and coronal planes. IV contrast was administered without complication. Automated exposure control was utilized for the study. A dose lowering technique was utilized adhering to the principles of ALARA. CT DOSE: 1355.83 mGy.cm FINDINGS: Lung bases are unremarkable. Cardiomegaly is noted. The gallbladder is not visualized. There is no significant biliary ductal dilatation. Spleen and pancreas are unremarkable. There is a 2.2 cm right renal cyst. There is no hydronephrosis. A 2 cm left adrenal nodule is unchanged from earlier exams. This is benign given stability. There is no evidence for a bowel obstruction. Extensive sigmoid diverticulosis is noted with circumferential wall thickening of the sigmoid colon with pericolonic inflammation. This is similar to CT of May 31, 2022. Possible post surgical findings within the sigmoid colon are noted. Several small fluid and gas containing pericolonic collections measure up to 2 cm. These are along the superior aspect of the mid sigmoid colon. No drainable fluid collection is present. Large amount of gas within the bladder is noted. There is bladder wall thickening with adjacent stranding. A probable colovesicular fistula shown on axial image 313 of [phone]. Possible fluid within the endometrial canal is again noted. This was shown on prior exams. There is slight asymmetric prominence of the left ovary. IMPRESSION: 1. Findings consistent with acute sigmoid diverticulitis. Several small gas and fluid containing pericolonic collections suggest contained perforation with small abscess formation. Suspected colovesicular fistula with large amount of gas within the bladder with bladder wall thickening and adjacent stranding. 2. Nonspecific fluid within the endometrial cavity which has been shown on prior exams. 3. No bowel obstruction. (1) Diverticulitis large intestine Diverticulitis bleeding: without bleeding Diverticulitis complication: with abscess Qualified Code(s): K57.20 - Diverticulitis of large intestine with perforation and abscess without bleeding
--- NOTE | 2022-06-05 12:34 | Communication Note ---
Date of Service: June 05, 2022 Current Inpatient Medications Albuterol (Albuterol Hfa 8 Gm Inhaler) 2 puffs INH QID PRN PRN Reason: Shortness Of Breath Stop: 06/30/22 20:49 Albuterol (Albuterol Hfa 8 Gm Inhaler (Combivent Respimat P&T Subs)) 1 puffs INH QIDR ANDREA Stop: 07/01/22 06:59 Last Admin: 06/05/22 11:06 Dose: 1 puffs Aspirin (Aspirin 81 Mg Ectab) 81 mg PO DAILY ANDREA Stop: 07/03/22 08:59 Last Admin: 06/05/22 08:47 Dose: 81 mg Atorvastatin Calcium (Atorvastatin 40 Mg Tab) 40 mg PO HS ANDREA Stop: 07/02/22 20:59 Last Admin: 06/04/22 20:42 Dose: 40 mg Bimatoprost (Bimatoprost 0.01% Op Soln 2.5 Ml Btl) 1 drops OP HS ANDREA Stop: 07/01/22 20:59 Last Admin: 06/04/22 20:40 Dose: 1 drops Brinzolamide (Brinzolamide (Azopt) Ops 10 Ml Btl) 1 drops OPB BID ANDREA Stop: 06/30/22 20:59 Last Admin: 06/05/22 08:48 Dose: 1 drops Dextrose (Dextrose 50% 50 Ml Syringe) 25 - 50 ml IV UD PRN; Protocol PRN Reason: Hypoglycemia Protocol Stop: 07/02/22 19:23 Enoxaparin Sodium (Enoxaparin Inj 40 Mg/0.4 Ml Syr) 40 mg SQ HS ANDREA Stop: 07/02/22 20:59 Last Admin: 06/04/22 20:38 Dose: Not Given Glucagon (Glucagon For Inj 1 Mg Vial) 1 mg SQ UD PRN; Protocol PRN Reason: Hypoglycemia Protocol Stop: 07/02/22 19:23 Glucose (Glucose 40% Gel 15 Gm Tube) 15 - 30 gm PO UD PRN; Protocol PRN Reason: Hypoglycemia Protocol Stop: 07/02/22 19:23 Glucose (Glucose 10 Tab/Tube) 4 - 8 tab PO UD PRN; Protocol PRN Reason: Hypoglycemia Treatment Stop: 07/02/22 19:23 Piperacillin Sod/Tazobactam (Sod 3.375 gm/ Dextrose) 115 mls @ 28.75 mls/hr IV Q8H [facility]; Protocol Stop: 06/10/22 21:59 Last Infusion: 06/05/22 10:30 Dose: Infused Insulin Aspart (Insulin Aspart Per Unit) 0 units SC ACHS [facility] Stop: 07/02/22 20:59 Last Admin: 06/05/22 11:53 Dose: 3 units Ipratropium [place] (Ipratropium Hfa Inhaler (Combivent Respimat P&T Subs)) 1 puffs INH QIDR [facility] Stop: 07/01/22 06:59 Last Admin: 06/05/22 11:06 Dose: 1 puffs Lidocaine (Lidocaine 4% Cream 15 Gm Tube) 1 appln EXT BID [facility] Stop: 07/01/22 11:59 Last Admin: 06/05/22 08:49 Dose: 1 appln Methimazole (Methimazole 5 Mg Tablet) 2.5 mg PO DAILY [facility] Stop: 07/02/22 10:29 Last Admin: 06/05/22 08:47 Dose: 2.5 mg Metoprolol Tartrate (Metoprolol Tartrate 25 Mg Tab) 25 mg PO QAM [facility] Stop: 07/02/22 10:29 Last Admin: 06/05/22 08:48 Dose: 25 mg Metoprolol Tartrate (Metoprolol Tartrate 25 Mg Tab) 12.5 mg PO QPM [facility] Stop: 07/02/22 20:59 Last Admin: 06/04/22 20:38 Dose: Not Given Miscellaneous (Zafirlukast: Order Awaiting Action) 1 each N/A QS [facility] Stop: 07/02/22 15:59 Last Admin: 06/05/22 08:47 Dose: Not Given Miscellaneous (Carbohydrates For Hypoglycemia ) 15 - 30 gm PO UD PRN PRN Reason: Hypoglycemia Protocol Stop: 07/02/22 19:23 Morphine Sulfate (Morphine Sulfate 2 Mg/Ml Carp) 3 mg IV Q4H PRN PRN Reason: severe Pain Stop: 06/14/22 19:50 Last Admin: 06/05/22 04:54 Dose: 3 mg Ondansetron HCl (Ondansetron Inj 2 Mg/Ml 2 Ml Vial) 4 mg IV Q6H PRN PRN Reason: Nausea Stop: 06/30/22 20:49 Pantoprazole Sodium (Pantoprazole 40 Mg Tab) 40 mg PO BID [facility]; Protocol Stop: 07/02/22 20:59 Last Admin: 06/05/22 08:47 Dose: 40 mg Sertraline HCl (Sertraline Hcl 50 Mg Tablet) 25 mg PO DAILY [facility] Stop: 07/03/22 08:59 Last Admin: 06/05/22 08:47 Dose: 25 mg Spironolactone (Spironolactone 12.5 Mg Tab) 12.5 mg PO [id number] [facility] Stop: 07/03/22 08:59 Last Admin: 06/05/22 08:48 Dose: 12.5 mg Umeclidinium [place] (Umeclidinium [place] 62.5mcg/Blister 7 Puffs/Inhaler) 1 puffs INH DAILY [facility] Stop: 07/01/22 08:59 Last Admin: 06/05/22 08:49 Dose: Not Given
--- NOTE | 2022-06-05 14:43 | Discharge Summary ---
Date of Service June 05, 2022 Admission HPI Per Admitting Provider This is an 81 y/o female with a history of DM2, CKD3a, pulmonary HTN, atrial fibrillation s/p Watchman procedure, recurrent diverticulitis, IBS, HTN, gastroparesis, GERD, COPD, chronic HFrEF, asthma, and obstructive sleep apnea who was referred to the ED today by her PCP after outpatient CT done earlier this week showed possible diverticular abscess. Pt was seen in PCP office on 05/13/22 for 1 month of LLQ pain and change in bowels. She took the home pack of cipro and metronidazole due to her hx of similar symptoms with diverticulitis but noted no improvement. PCP ordered a CT abd/pel with contrast for which pt was premedicated due to her hx of contrast allergy. This was done on Friday but results apparently didn't come back until today. Due to concern for abscess, she was referred to the ED for IV antibiotics and possible admission. Pt was admitted last April with diverticulitis and diverticular abscess. She was seen by surgery during this admission who recommended conservative management with IV antibiotics due to pt being high-risk for surgical intervention. Pt reports generalized abdominal discomfort with pain in the LLQ and suprapubic area. She had ongoing nausea and loss of appetite with one episode of emesis. Her family notes she has lost 32 lbs in the last five months, 10 lb of that within the past month. She denies fevers, chills, sweats/night sweats, chest pain. She has noted sensation of racing heart and more SOB today. Denies chest pain. Her baseline O2 requirement is 2L during the day and 4L at night. She has chronic back pain for which she uses hydrocodone with relief. Constant urge to urinate but when she goes it is only small amount. She denies fecaluria but has noted intermittent pneumaturia. No hematuria. She has been more fatigued and generally weak. Checking blood sugars at home - no recent sugars <80 or >200. Admission Exam Per Admitting Provider Constitutional: well developed and well nourished; no acute distress Eyes: + anicteric sclerae Neck: trachea midline Respiratory: no respiratory distress and no labored breathing Auscultation: lungs clear to auscultation bilaterally; no rales, no rhonchi and no wheezes Cardiovascular: Rate/Rhythm: + tachycardic Vessels: radial pulses present Extremities: no pedal edema Gastrointestinal (Abdomen): Inspection/Auscultation: normal bowel sounds; abdomen not distended Percussion/Palpation: + abdomen tender (mild generalized, moderate LLQ to deep palpation), abdomen soft and + tympanic to percussion; no guarding Musculoskeletal: Head/Neck/Chest: normocephalic, head atraumatic and neck supple Skin: no jaundice Neurologic: moves all extremities; no focal motor deficits and not confused Psychiatric: A+Ox3, euthymic affect Principal Diagnosis Complicated acute severe sigmoid diverticulitis with abscess and colovesical fistula Discharge Exam General:Lying comfortably in bed, not in distress, on NC chronically HEENT: EOMI, PERRL, MMM Chest: Clear breath sounds bilaterally, no wheezes or crackles CVS: irregular, normal heart sounds, no murmur Abdomen: Soft, mild LLQ tenderness, not distended, normal bowel sounds Neuro: Awake, alert, oriented, conversing well, non focal Extremities: No edema Discharge Data Allergies Allergy/AdvReac Type Severity Reaction Status Date / Time salmon oil Allergy Severe HIVES-REDDENED Verified 05/20/22 13:03 ALL OVER Iodinated Contrast Media Allergy Intermediate HIVES-GI Verified 05/20/22 13:03 SYMPTOMS valsartan Allergy Intermediate FAST HEART Verified 05/20/22 13:03 BEAT bupropion AdvReac Mild GI SYMPTOMS Verified 05/20/22 13:03 enalapril AdvReac Mild GI SYMPTOMS Verified 05/20/22 13:03 escitalopram AdvReac Mild GI SYMPTOMS Verified 05/20/22 13:03 metoprolol AdvReac Mild LOWERS Verified 05/20/22 13:03 PULSE RATE verapamil AdvReac Mild GI UPSET, Verified 05/20/22 13:03 fast heart rate Consultations 05/31/22 16:52 ED Decision to Admit Stat 05/31/22 20:50 Consult General Surgery Routine 06/02/22 10:17 Consult Urology Routine Ordered Studies 05/31/22 15:05 CT abd pelvis wo con Stat 06/04/22 11:56 CT Abd and Pelvis [CT abd pelvis oral and IV con] Urgent Laboratory Results WBC 8.73 K/ul (4.8-10.8) 06/05/22 05:53 RBC 3.41 M/uL (3.93-5.22) L 06/05/22 05:53 Hgb 9.0 g/dl (12.0-16.0) L 06/05/22 05:53 Hct 29.4 % (34.1-44.9) L 06/05/22 05:53 MCV 86.2 fL (80.0-100.0) 06/05/22 05:53 MCH 26.4 pg (25.0-34.0) 06/05/22 05:53 MCHC 30.6 g/dL (32.0-36.0) L 06/05/22 05:53 RDW Std Deviation 47.5 fL (36.4-46.3) H 06/05/22 05:53 RDW Coeff of Jesika 15.1 % (11.5-14.5) H 06/05/22 05:53 Plt Count 358 K/uL (130-400) 06/05/22 05:53 MPV 9.4 fL (9.4-12.3) 06/05/22 05:53 Immature Gran % (Auto) 0.7 % 06/04/22 06:28 Neut % (Auto) 60.2 % 06/04/22 06:28 Lymph % (Auto) 20.2 % 06/04/22 06:28 [place] % (Auto) 13.2 % 06/04/22 06:28 Eos % (Auto) 5.4 % 06/04/22 06:28 Baso % (Auto) 0.3 % 06/04/22 06:28 Neut # (Auto) 7.63 K/uL (1.4-6.5) H 06/04/22 06:28 Lymph # (Auto) 2.56 K/uL (1.2-3.4) 06/04/22 06:28 [place] # (Auto) 1.67 K/uL (0.24-0.82) H 06/04/22 06:28 Eos # (Auto) 0.68 K/uL (0-0.50) H 06/04/22 06:28 Baso # (Auto) 0.04 K/uL (0-0.2) 06/04/22 06:28 Immature Gran # (Auto) 0.09 K/uL (0.00-0.02) H 06/04/22 06:28 PT 10.9 Seconds (9.0-12.0) 05/31/22 15:08 INR 1.0 (0.9-1.1) 05/31/22 15:08 APTT 27.5 Seconds (21.0-31.0) 05/31/22 15:08 PTT Ratio 1.0 05/31/22 15:08 Sodium 132 mmol/L (136-145) L 06/05/22 05:53 Potassium 3.9 mmol/L (3.5-5.1) 06/05/22 05:53 Chloride 99 mmol/L (98-107) 06/05/22 05:53 Carbon Dioxide 28 mmol/L (21-32) 06/05/22 05:53 Anion Gap 5 (3-11) 06/05/22 05:53 BUN 11 mg/dl (6-23) 06/05/22 05:53 Creatinine 0.79 mg/dl (0.6-1.2) 06/05/22 05:53 Est Cr Clr Drug Dosing 64.4 ml/min 06/05/22 05:53 Est GFR ( Amer) 80.2 ml/min 06/05/22 05:53 Est GFR (Non-Af Amer) 69.2 ml/min 06/05/22 05:53 BUN/Creatinine Ratio 13.9 (10-20) 06/05/22 05:53 Glucose 146 mg/dl (70-99(Fasting)) H 06/05/22 05:53 POC Glucose 221 mg/dl (70-99) H 06/05/22 11:31 Lactate 0.9 mmol/L (0.4-2.0) 05/31/22 17:54 Calcium 8.9 mg/dl (8.5-10.1) 06/05/22 05:53 Phosphorus 3.2 mg/dl (2.5-4.9) 06/04/22 06:28 Magnesium 1.7 mg/dl (1.7-2.4) 06/05/22 05:53 Total Bilirubin 0.4 mg/dl (0.2-1.0) 05/31/22 15:08 AST 16 U/L (13-39) 05/31/22 15:08 ALT 12 U/L (7-52) 05/31/22 15:08 Alkaline Phosphatase 105 U/L (34-104) H 05/31/22 15:08 C-Reactive Protein 5.65 mg/dl (0-0.5) H 05/31/22 17:54 Total Protein 7.4 gm/dl (6.0-8.3) 05/31/22 15:08 Albumin 3.5 gm/dl (3.4-5.0) 05/31/22 15:08 Globulin 3.9 gm/dl (2.5-4.0) 05/31/22 15:08 Albumin/Globulin Ratio 0.9 (0.9-2) 05/31/22 15:08 Urine Color [place] 05/31/22 15:55 Urine Appearance Turbid (Clear) A 05/31/22 15:55 Urine pH 6.0 (4.5-7.5) 05/31/22 15:55 Ur Specific [place] 1.020 (1.000-1.030) 05/31/22 15:55 Urine Protein 3+ (Negative) H 05/31/22 15:55 Urine Glucose (UA) Negative (Negative) 05/31/22 15:55 Urine Ketones Trace (Negative) H 05/31/22 15:55 Urine Blood 3+ (Negative) H 05/31/22 15:55 Urine Nitrite Negative (Negative) 05/31/22 15:55 Urine Bilirubin Negative (Negative) 05/31/22 15:55 Urine Urobilinogen Negative (Negative) 05/31/22 15:55 Ur Leukocyte Esterase 3+ (Negative) H 05/31/22 15:55 Urine WBC (Auto) >30 /hpf (0-5) H 05/31/22 15:55 Urine RBC (Auto) >30 /hpf (0-4) H 05/31/22 15:55 U Hyaline Cast (Auto) 0 /lpf (0-5) 05/31/22 15:55 U Epithel Cells (Auto) >30 /lpf (0-5) H 05/31/22 15:55 Urine Bacteria (Auto) 1+ (Negative) H 05/31/22 15:55 SARS-CoV-2, RNA, NAAT NEGATIVE (NEGATIVE) 05/31/22 16:45 Impressions Chest X-Ray 05/31/22 17:34 XR chest 2V PA/lateral HISTORY: Shortness of breath, increased O2 requirement COMPARISON: Chest 06/11/2021. FINDINGS: No pneumothorax. No pleural effusions. A few left basilar linear densities likely representing subsegmental atelectasis or scarring. This is similar to the prior study. Otherwise, no new focal lung consolidations to suggest pneumonia. No evidence for pulmonary edema. The heart remains mildly enlarged. An atrial septal closure device is noted. IMPRESSION: Stable cardiomegaly. Otherwise, no acute process within the chest ACT 112: Negative or not required by law. Electronically signed by: Greg Waggoner M.D. 05/31/2022 8:29 PM Abdomen/Pelvis CT 06/04/22 11:56 CT OF THE ABDOMEN AND PELVIS WITH CONTRAST CLINICAL HISTORY: Sigmoid diverticulitis. Increasing pain. Intermittent fever. COMPARISON STUDY: CT of the abdomen and pelvis May 31, 2022. TECHNIQUE: Patient was premedicated for IV dye allergy. Following IV administration of 90 mL of Optiray, axial images of the abdomen and pelvis were obtained from the lung bases to the proximal femurs. Images were reviewed in the axial, sagittal, and coronal planes. IV contrast was administered without complication. Automated exposure control was utilized for the study. A dose lowering technique was utilized adhering to the principles of ALARA. CT DOSE: 1355.83 mGy.cm FINDINGS: Lung bases are unremarkable. Cardiomegaly is noted. The gallbladder is not visualized. There is no significant biliary ductal dilatation. Spleen and pancreas are unremarkable. There is a 2.2 cm right renal cyst. There is no hydronephrosis. A 2 cm left adrenal nodule is unchanged from earlier exams. This is benign given stability. There is no evidence for a bowel obstruction. Extensive sigmoid diverticulosis is noted with circumferential wall thickening of the sigmoid colon with pericolonic inflammation. This is similar to CT of May 31, 2022. Possible post surgical findings within the sigmoid colon are noted. Several small fluid and gas containing pericolonic collections measure up to 2 cm. These are along the superior aspect of the mid sigmoid colon. No drainable fluid collection is present. Large amount of gas within the bladder is noted. There is bladder wall thickening with adjacent stranding. A probable colovesicular fistula shown on axial image 313 of [id number]. Possible fluid within the endometrial canal is again noted. This was shown on prior exams. There is slight asymmetric prominence of the left ovary. IMPRESSION: 1. Findings consistent with acute sigmoid diverticulitis. Several small gas and fluid containing pericolonic collections suggest contained perforation with small abscess formation. Suspected colovesicular fistula with large amount of gas within the bladder with bladder wall thickening and adjacent stranding. 2. Nonspecific fluid within the endometrial cavity which has been shown on prior exams. 3. No bowel obstruction. ACT 112: Negative or not required by law. Electronically signed by: Shadi Ravi M.D. 06/04/2022 6:27 PM Hospital Course (1) Diverticulitis large intestine: Acute severe sigmoid diverticulitis Ongoing symptoms for past 2 months. No improvement with course of oral antibiotics. History of recurrent diverticulitis with prior abscess Currently on iv zosyn, clears OP CT, as well as CT from admission and repeat CT yesterday reviewed. Discussed with surgical team. Recommended discussion with colorectal surgery in tertiary center for possible transfer given her complicated diverticulitis with new colovesical fistual, given her slow improvement with persistent pain despite 5 days of iv antibiotics. Spoke with Dr Snyder from [facility] who accepted the patient for transfer under his service Spoke to patient at bedside and daughter Stephani over the phone regarding the transfer and they agree Paperwork completed. Transfer via ALS CT A/P 05/31 1. Advanced colonic diverticulosis with evidence of severe acute sigmoid diverticulitis. 2. No intraperitoneal free air is seen and there is no organized fluid collection identified to suggest abscess on this unenhanced examination. 3. There is a large amount of intraluminal gas within the bladder with findings suspicious for a colovesicular fistula. Clinical correlation will be required. 4. Status post sigmoid colon resection with colocolonic anastomosis. No bowel obstruction is seen. 5. Additional findings as above. CT A/P 06/04 1. Findings consistent with acute sigmoid diverticulitis. Several small gas and fluid containing pericolonic collections suggest contained perforation with small abscess formation. Suspected colovesicular fistula with large amount of gas within the bladder with bladder wall thickening and adjacent stranding. 2. Nonspecific fluid within the endometrial cavity which has been shown on prior exams. 3. No bowel obstruction. (2) Colovesical fistula: no acute urologic intervention per urology Per surgery and urology- no need for further imaging to confirm- will need evaluation at tertiary center for repair- being transferred to [facility] under colorectal surgery service for evaluation (3) Sepsis: resolving with IV ABx (4) Diabetes mellitus, type 2: SSI prn (5) COPD (chronic obstructive pulmonary disease): (6) Chronic HFrEF (heart failure with reduced ejection fraction): Resume home lasix once eating normally. currently looks euvolemic (7) JORDAN (obstructive sleep apnea): Continue nocturnal O2 (8) Chronic atrial fibrillation: s/p watchman due to her intolerance of anticoagulation due to bleeding. (9) Subclinical hyperthyroidism: continue methimazole and BB (10) Chronic respiratory failure with hypoxia and hypercapnia: continue home oxygen (11) Hypertension: continue metoprolol, aldactone. BP soft- monitor Total Time Total Time Spent Total Time Spent (In Minutes): 50 Discharge Plan Discharge Items Patient Disposition: Transfer Acute Care Hospital Reason For Visit: SEVERE DIVERTICULITS W/ ABSCESS Discharge Diagnosis: severe acute sigmoid diverticulitis with abscess, colovesical fistula Activity: Per Instructions section Non-emergency contact: Primary Care Provider and Surgeon Call non-emergency contact if: you have any medication questions, your symptoms worsen, your pain is not controlled and you have a fever Follow-up/Referrals: Marcela Pinto MD [Primary Care Provider] - Diet: Other - See Diet Comment Addtl Attending Provider Instructions: You are being transferred to [facility] for further management of your complicated diverticulitis with abscess and colovesical fistula You are currently on zosyn Following are the list of medications being given here and recommended to continue at [facility] upon admission Date of Service: June 05, 2022 Current Inpatient Medications Albuterol (Albuterol Hfa 8 Gm Inhaler) 2 puffs INH QID PRN PRN Reason: Shortness Of Breath Stop: 06/30/22 20:49 Albuterol (Albuterol Hfa 8 Gm Inhaler (Combivent Respimat P&T Subs)) 1 puffs INH QIDR ANDREA Stop: 07/01/22 06:59 Last Admin: 06/05/22 11:06 Dose: 1 puffs Aspirin (Aspirin 81 Mg Ectab) 81 mg PO DAILY ANDREA Stop: 07/03/22 08:59 Last Admin: 06/05/22 08:47 Dose: 81 mg Atorvastatin Calcium (Atorvastatin 40 Mg Tab) 40 mg PO HS ANDREA Stop: 07/02/22 20:59 Last Admin: 06/04/22 20:42 Dose: 40 mg Bimatoprost (Bimatoprost 0.01% Op Soln 2.5 Ml Btl) 1 drops OP HS ANDREA Stop: 07/01/22 20:59 Last Admin: 06/04/22 20:40 Dose: 1 drops Brinzolamide (Brinzolamide (Azopt) Ops 10 Ml Btl) 1 drops OPB BID ANDREA Stop: 06/30/22 20:59 Last Admin: 06/05/22 08:48 Dose: 1 drops Dextrose (Dextrose 50% 50 Ml Syringe) 25 - 50 ml IV UD PRN; Protocol PRN Reason: Hypoglycemia Protocol Stop: 07/02/22 19:23 Enoxaparin Sodium (Enoxaparin Inj 40 Mg/0.4 Ml Syr) 40 mg SQ HS ANDREA Stop: 07/02/22 20:59 Last Admin: 06/04/22 20:38 Dose: Not Given Glucagon (Glucagon For Inj 1 Mg Vial) 1 mg SQ UD PRN; Protocol PRN Reason: Hypoglycemia Protocol Stop: 07/02/22 19:23 Glucose (Glucose 40% Gel 15 Gm Tube) 15 - 30 gm PO UD PRN; Protocol PRN Reason: Hypoglycemia Protocol Stop: 07/02/22 19:23 Glucose (Glucose 10 Tab/Tube) 4 - 8 tab PO UD PRN; Protocol PRN Reason: Hypoglycemia Treatment Stop: 07/02/22 19:23 Piperacillin Sod/Tazobactam (Sod 3.375 gm/ Dextrose) 115 mls @ 28.75 mls/hr IV Q8H ANDREA; Protocol Stop: 06/10/22 21:59 Last Infusion: 06/05/22 10:30 Dose: Infused Insulin Aspart (Insulin Aspart Per Unit) 0 units SC ACHS [facility] Stop: 07/02/22 20:59 Last Admin: 06/05/22 11:53 Dose: 3 units Ipratropium [place] (Ipratropium Hfa Inhaler (Combivent Respimat P&T Subs)) 1 puffs INH QIDR [facility] Stop: 07/01/22 06:59 Last Admin: 06/05/22 11:06 Dose: 1 puffs Lidocaine (Lidocaine 4% Cream 15 Gm Tube) 1 appln EXT BID [facility] Stop: 07/01/22 11:59 Last Admin: 06/05/22 08:49 Dose: 1 appln Methimazole (Methimazole 5 Mg Tablet) 2.5 mg PO DAILY [facility] Stop: 07/02/22 10:29 Last Admin: 06/05/22 08:47 Dose: 2.5 mg Metoprolol Tartrate (Metoprolol Tartrate 25 Mg Tab) 25 mg PO QAM [facility] Stop: 07/02/22 10:29 Last Admin: 06/05/22 08:48 Dose: 25 mg Metoprolol Tartrate (Metoprolol Tartrate 25 Mg Tab) 12.5 mg PO QPM [facility] Stop: 07/02/22 20:59 Last Admin: 06/04/22 20:38 Dose: Not Given Miscellaneous (Zafirlukast: Order Awaiting Action) 1 each N/A QS [facility] Stop: 07/02/22 15:59 Last Admin: 06/05/22 08:47 Dose: Not Given Miscellaneous (Carbohydrates For Hypoglycemia ) 15 - 30 gm PO UD PRN PRN Reason: Hypoglycemia Protocol Stop: 07/02/22 19:23 Morphine Sulfate (Morphine Sulfate 2 Mg/Ml [place]) 3 mg IV Q4H PRN PRN Reason: severe Pain Stop: 06/14/22 19:50 Last Admin: 06/05/22 04:54 Dose: 3 mg Ondansetron HCl (Ondansetron Inj 2 Mg/Ml 2 Ml Vial) 4 mg IV Q6H PRN PRN Reason: Nausea Stop: 06/30/22 20:49 Pantoprazole Sodium (Pantoprazole 40 Mg Tab) 40 mg PO BID [facility]; Protocol Stop: 07/02/22 20:59 Last Admin: 06/05/22 08:47 Dose: 40 mg Sertraline HCl (Sertraline Hcl 50 Mg Tablet) 25 mg PO DAILY [facility] Stop: 07/03/22 08:59 Last Admin: 06/05/22 08:47 Dose: 25 mg Spironolactone (Spironolactone 12.5 Mg Tab) 12.5 mg PO MoWeFr@0900 [facility] Stop: 07/03/22 08:59 Last Admin: 06/05/22 08:48 Dose: 12.5 mg Umeclidinium [place] (Umeclidinium [place] 62.5mcg/Blister 7 Puffs/Inhaler) 1 puffs INH DAILY [facility] Stop: 07/01/22 08:59 Last Admin: 06/05/22 08:49 Dose: Not Given Pending Studies at Discharge: No Stand-Alone Forms: [employer], Smoking Cessation Skilled Items Patient informed of condition?: Yes DNR: No Discharge Level of Care: Other Communicable Disease: No Discharge Prognosis: Stable Lines: Peripheral IV Urinary Catheter: No Medications and DC Order Prescriptions: Continued methimazole 5 mg tablet 2.5 mg PO DAILY Qty: 15 1RF albuterol sulfate [Ventolin HFA] 90 mcg/actuation HFA aerosol inhaler 2 puff INHALATION QID PRN (Reason: Shortness Of Breath) Qty: 6.7 11RF Spiriva Respimat 1.25 mcg/actuation mist 2 puff inhalation DAILY Qty: 1 11RF sertraline 25 mg tablet 25 mg PO DAILY aspirin [Kenzie Low Dose Aspirin] 81 mg tablet,delayed release (DR/EC) 81 mg PO DAILY lisinopril 2.5 mg tablet 2.5 mg PO DAILY dicyclomine 20 mg tablet 20 mg PO DAILY spironolactone 25 mg tablet 12.5 mg PO [id number] Rx Instructions: M/W/F multivitamin Tablet 1 tab PO QAM promethazine 25 mg Tablet 25 mg PO Q6H PRN (Reason: nausea and vomiting) Qty: 60 0RF atorvastatin 40 mg Tablet 40 mg PO HS docusate sodium 100 mg Capsule 100 mg PO QAM omeprazole 20 mg Capsule,Delayed Release(Dr/Ec) 20 mg PO BID cholecalciferol (vitamin D3) [Vitamin D3] 1,000 unit Capsule 2,000 unit PO QAM ferrous sulfate [iron] 325 mg (65 mg iron) tablet 325 mg PO QAM glimepiride 4 mg tablet 2 mg PO QAM Rx Instructions: checks sugar first and if below 100 holds zafirlukast 20 mg tablet 20 mg PO QAM albuterol sulfate 2.5 mg /3 mL (0.083 %) Solution For Nebulization 2.5 mg INHALATION BID PRN (Reason: .WORSENING ASTHMA) brinzolamide [Azopt] 1 % Drops,Suspension 1 drp OPB BID [place] 0.01 % drops 1 drp OPB HS polyethylene glycol 3350 [Miralax] 17 gram/dose Powder 17 g PO BID PRN (Reason: Constipation) Rx Instructions: TAKE 17G BY MOUTH 2 TIMES A DAY. ONE CAPFULL IN JUICE, TO EFFECT 1 STOOL PER DAY. hydrocodone-acetaminophen 5-325 mg Tablet 1 tab PO Q6H PRN (Reason: Pain) Probiotic 3 billion cell Capsule 3,000 mmu cells PO QAM metoprolol tartrate 25 mg Tablet See Rx Instructions .ROUTE .COMPLEX Rx Instructions: 25 mg orally ;1 tab AM and 1/2 tab PM furosemide 40 mg tablet 40 mg PO BID ondansetron 8 mg Tablet,Disintegrating 8 mg PO Q8H PRN (Reason: Nausea And Vomiting) potassium chloride [Klor-Con M20] 20 mEq tablet,ER particles/crystals 20 meq PO DAILY Combivent Respimat 20-100 mcg/actuation mist 1 puff INHALATION QID Discharge Orders: Discharge Order (Routine); Ordered 06/05/22 Ordered By: Frank Abdi Admission Data Admit Date/Time: 05/31/22 18:00 Attending Provider: Frank Abdi Admit Provider: Carlos Gould Primary Care Provider: Marcela Pinto Other Providers: Carlos Gould ; Shobha Eagle ; Isael Carlos ; Mendel Braswell
[2022-06-05] MEDS: ENOXAPARIN INJ 40 MG/0.4 ML SYR SQ SCH (20:39)
[2022-06-05] MEDS: BIMATOPROST 0.01% OP SOLN 2.5 ML BTL OP SCH (20:40)
[2022-06-05] MEDS: ATORVASTATIN 40 MG TAB PO SCH (20:41)
[2022-06-06] MEDS: MoRPHine SULFATE 2 MG/ML CARP IV PRN ×2 (02:12→10:11)
[2022-06-06] MEDS: PIPERACILLIN/TAZOBACTAM 3.375 GM in DEXTROSE 5% 100 ML IV SCH (06:13)
[2022-06-06] MEDS: Ipratropium HFA Inhaler (Combivent Respimat P&T Subs) INH SCH (06:58)
[2022-06-06] MEDS: Albuterol HFA 8 GM Inhaler (Combivent Respimat P&T Subs) INH SCH (06:58)
[2022-06-06 07:01] VITALS: O2SAT 93
[2022-06-06] MEDS: INSULIN ASPART PER UNIT SC SCH (07:50)
[2022-06-06] MEDS: methIMAzole 5 MG TABLET PO SCH (08:02)
[2022-06-06] MEDS: METOPROLOL TARTRATE 25 MG TAB PO SCH (08:02)
[2022-06-06] MEDS: ASPIRIN 81 MG ECTAB PO SCH (08:02)
[2022-06-06] MEDS: PANTOprazole 40 MG TAB PO SCH (08:05)
[2022-06-06] MEDS: BRINZOLAMIDE (AZOPT) OPS 10 ML BTL OPB SCH (08:06)
[2022-06-06] MEDS: UMECLIDINIUM BROMIDE 62.5MCG/BLISTER 7 PUFFS/INHALER INH SCH (08:07)
[2022-06-06] MEDS: LIDOCAINE 4% CREAM 15 GM TUBE EXT SCH (08:08)
[2022-06-06 08:10] VITALS: BP 113/69; TEMP 97.9
[2022-06-06] MEDS: SERTRALINE HCL 50 MG TABLET PO SCH (09:05)
[2022-06-06 09:17] VITALS: PULSE 67
== END 2022-06-06 10:53 | disposition short-term general hospital (02) | DRG 872 ==
LOC: ED 14:09 → SUATTDRO 18:00 → EDINP 18:00 → 2S 20:52
DX: I50.22 Chronic systolic (congestive) heart failure; I48.20 Chronic atrial fibrillation, unspecified; Z99.81 Dependence on supplemental oxygen; Z88.8 Allergy status to other drugs, medicaments and biological substances; E11.9 Type 2 diabetes mellitus without complications; N32.1 Vesicointestinal fistula; Z83.3 Family history of diabetes mellitus; N18.31 Chronic kidney disease, stage 3a; J96.11 Chronic respiratory failure with hypoxia; K57.20 Diverticulitis of large intestine with perforation and abscess without bleeding; Z79.82 Long term (current) use of aspirin; Z91.041 Radiographic dye allergy status; J96.12 Chronic respiratory failure with hypercapnia; A41.9 Sepsis, unspecified organism; Z95.828 Presence of other vascular implants and grafts; I13.0 Hypertensive heart and chronic kidney disease with heart failure and stage 1 through stage 4 chronic kidney disease, or unspecified chronic kidney disease

== ENCOUNTER 2022-07-17 12:37 | Inpatient (IN) ==
[2022-07-17] MEDS ORDERED: PANTOprazole 80 MG in DEXTROSE 5% 100 ML IV ONE (12:52)
--- NOTE | 2022-07-17 13:28 | Emergency Department Note ---
Impression & Plan Diverticulitis large intestine, Chronic atrial fibrillation, Abdominal pain, LLQ ED Provider Note Provider: Chuck Marin MD DATE OF SERVICE: 07/17/2022 CHIEF COMPLAINT: Bloody stool, left lower quadrant pain HISTORY OF PRESENT ILLNESS: Patient is a 81-year-old female past medical history including type 2 diabetes, CKD, pulmonary hypertension, atrial fibrillation status post watchman, recurrent diverticulitis with abscess, hypertension, COPD on 2 L of oxygen presenting here today noting that last night she began to have some dark red bloody stool. Continued this morning. Has had over the past 5 days some pain to left lower quadrant. States her stomach's been a bit upset and may be sore over the last week or 2. Denies fever chills. Denies trauma. Denies nausea or vomiting. Was hospitalized several months ago for abscess and diverticulitis with possible bladder fistula. Is to follow-up with urology on September 12. Was hospitalized here for a week and then [facility] for a week and sent home on 10 days of antibiotics but has been on antibiotics since. States it feels similar to prior episodes of diverticulitis. On aspirin but no other anticoagulants by her report. Denies feeling lightheaded or dizzy. REVIEW OF SYSTEMS: A total of 10 review of systems was obtained and negative except as stated above in the HPI. PAST MEDICAL HISTORY: As noted above MEDICATIONS: Reviewed home medications SOCIAL HISTORY: Resides at home PHYSICAL EXAM: GENERAL: alert and oriented in no acute distress on stretcher Head: normocephalic and atraumatic EYES: No injection, discharge or icterus. NECK: Trachea midline. LUNGS: Airway patent. No retractions. Breath sounds clear HEART: Regular rate and rhythm. No chest wall tenderness ABDOMEN: Soft with some left lower quadrant tenderness. Not peritoneal. No right-sided or upper abdominal tenderness appreciated. SKIN: Acyanotic, warm, dry, without rashes EXTREMITIES: Without tenderness or deformity with trace bilateral edema NEUROLOGICAL: No focal deficits. No aphasia. No facial droop or slurred speech. Ambulatory. EK bpm atrial fibrillation with a left axis and intraventricular conduction delay. No clear acute ST segment elevation noted. In comparison to previous from May 31 of this year similar CONTINUOUS CARDIAC MONITORING: was ordered and showed a heart rate of 90s-110s bpm in atrial fibrillation Patient's laboratory studies and imaging reviewed. Differential includes Appendicitis, infections, diverticulitis, UTI, obstruction, mesenteric ischemia, aortic pathology, inflammatory bowel disease, renal colic, PUD, pancreatitis, biliary pathology, hernia, volvulus, constipation, as well as other pathologies. IMPRESSION/MEDICAL DECISION MAKING: Patient with a history of diverticulitis with some left lower quadrant pain now and a bit of bloody stool. Initial triage blood pressure was somewhat tenuous. Distant history of transfusion in the past. Not on anticoagulants but is on aspirin. Type and screen and blood counts ordered. Ordered some gentle IV hydration given her history of CHF. Protonix bolus with the sounds like probably a lower GI bleed likely related to her diverticulitis recurring. Patient with stable mild anemia. No significant leukocytosis noted on blood work today. Mild hypokalemia but no other severe electrolyte abnormalities. No evidence of hepatitis or pancreatitis. Noncontrast CT completed given her allergy profile to evaluate for possible diverticulitis today or abscess. She is here for per radiology shows similar findings to June 04 with acute sigmoid diverticulitis with likely small perforations and abscesses. 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 Given similar nature to the previous episode with was treated just with antibiotics discussed with her IV antibiotics here. Given her comorbidities and bloody bowel movements with the CT findings and aspirin usage discussed observation here overnight. DIAGNOSIS: Acute diverticulitis, LLQ abdominal pain, chronic atrial fibrillation DISPOSITION: Hospitalist will evaluate Patient was agreeable with this plan. Past Med/Surg History Medical History Aortic valve stenosis, mild Asthma Chris-tachy syndrome Chronic atrial fibrillation Chronic diastolic CHF (congestive heart failure) Chronic HFrEF (heart failure with reduced ejection fraction) Chronic respiratory failure with hypoxia and hypercapnia COPD (chronic obstructive pulmonary disease) Diabetes mellitus, type 2 Esophageal reflux Glaucoma of both eyes Hyperlipidemia Hypertension Lower GI bleed NICM (nonischemic cardiomyopathy) On home oxygen therapy 2L N/C at all times and 4 L N/C at night JORDAN (obstructive sleep apnea) Sleep apnea Subclinical hyperthyroidism Subepithelial mass of stomach Surgical History H/O colonoscopy "04/2014 - diverticular disease throughout colon, internal hemorrhoids, polyp removed" History of appendectomy History of cardiac cath "YEARS AGO"NO BLOCKAGES/NO STENTS-F/U DR THOMSON History of cholecystectomy History of dilatation and curettage History of esophagogastroduodenoscopy (EGD) "04/2014 - normal" History of incisional hernia repair History of tooth extraction all teeth Hx of small bowel obstruction "11/2017 - Seen [facility] - surgical intervention" Nausea and vomiting after administration of anesthetic agent Presence of Watchman left atrial appendage closure device 11/2019 @ [facility] [address] 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); Hx Alcohol Use: No Hx Substance Use: No Preferred Language: [place] Communication Ability: Effective Gore Maker Required: Yes Beliefs That Will Affect Care: None marital status: / Current Living Situation: Alone Feels Safe at Home: Yes Assistive Devices: Glasses, Nebulizer, Oxygen - Continuous and Walker Allergies Allergies Allergy/AdvReac Type Severity Reaction Status Date / Time salmon oil Allergy Severe HIVES-REDDENED Verified 07/17/22 15:22 ALL OVER Iodinated Contrast Media Allergy Intermediate HIVES-GI Verified 07/17/22 15:22 SYMPTOMS valsartan Allergy Intermediate FAST HEART Verified 07/17/22 15:22 BEAT bupropion AdvReac Mild GI SYMPTOMS Verified 07/17/22 15:22 enalapril AdvReac Mild GI SYMPTOMS Verified 07/17/22 15:22 escitalopram AdvReac Mild GI SYMPTOMS Verified 07/17/22 15:22 metoprolol AdvReac Mild LOWERS Verified 07/17/22 15:22 PULSE RATE verapamil AdvReac Mild GI UPSET, Verified 07/17/22 15:22 fast heart rate Home Meds Home Medications Medication Instructions Recorded Confirmed atorvastatin 40 mg tablet 40 mg PO HS 06/23/19 07/17/22 cholecalciferol (vitamin D3) 25 2,000 unit PO QAM 06/23/19 07/17/22 mcg (1,000 unit) capsule (Vitamin D3) docusate sodium 100 mg capsule 100 mg PO QAM 06/23/19 07/17/22 omeprazole 20 mg capsule,delayed 20 mg PO BID 06/23/19 07/17/22 release albuterol sulfate 2.5 mg/3 mL 2.5 mg inhalation BID PRN 09/25/19 07/17/22 (0.083 %) solution for nebulization .WORSENING ASTHMA bimatoprost 0.01 % eye drops 1 drp OPB HS 09/25/19 07/17/22 (Lumigan) brinzolamide 1 % eye 1 drp OPB BID 09/25/19 07/17/22 drops,suspension (Azopt) polyethylene glycol 3350 17 17 g PO BID PRN Constipation 09/25/19 07/17/22 gram/dose oral powder (Miralax) ferrous sulfate 325 mg (65 mg 325 mg PO QAM 02/23/20 07/17/22 iron) tablet (iron) glimepiride 4 mg tablet 2 mg PO QAM 02/23/20 07/17/22 multivitamin 1 tab PO QAM 06/02/20 07/17/22 hydrocodone 5 mg-acetaminophen 325 1 tab PO Q6H PRN Pain 07/28/20 07/17/22 mg tablet lactobacillus combination no.4 3 3,000 mmu cells PO QAM 07/28/20 07/17/22 billion cell capsule (Probiotic) zafirlukast 20 mg tablet 20 mg PO QAM 09/11/20 07/17/22 aspirin 81 mg tablet,delayed 81 mg PO DAILY 02/05/21 07/17/22 release (Kenzie Low Dose Aspirin) lisinopril 2.5 mg tablet 2.5 mg PO DAILY 02/05/21 07/17/22 ipratropium 20 mcg-albuterol 100 1 puff inhalation QID 04/09/21 07/17/22 mcg/actuation mist for inhalation (Combivent Respimat) potassium chloride 20 mEq 20 meq PO DAILY 04/09/21 07/17/22 tablet,extended release(part/cryst) (Klor-Con M) metoprolol tartrate 25 mg tablet See Rx Instructions .Route .COMPLEX 07/05/21 07/17/22 dicyclomine 20 mg tablet 20 mg PO DAILY 01/14/22 07/17/22 spironolactone 25 mg tablet 12.5 mg PO 3XWK 01/14/22 07/17/22 sertraline 25 mg tablet 25 mg PO DAILY 03/13/22 07/17/22 furosemide 40 mg tablet 40 mg PO BID 05/31/22 07/17/22 ondansetron 8 mg disintegrating 8 mg PO Q8H PRN Nausea And Vomiting 05/31/22 07/17/22 tablet Previous Rx's Medication Instructions Recorded promethazine 25 mg tablet 25 mg PO Q6H PRN nausea and 06/16/20 vomiting #60 tabs tiotropium bromide 1.25 2 puff inhalation DAILY #1 inhaler 09/10/21 mcg/actuation mist for inhalation (Spiriva Respimat) methimazole 5 mg tablet 2.5 mg PO DAILY #15 tabs 01/15/22 albuterol sulfate 90 mcg/actuation 2 puff inhalation QID PRN 05/03/22 aerosol inhaler (Ventolin HFA) Shortness Of Breath #6.7 grams Results & Data (ED) Vital Signs Vital Signs - 24 hr 07/17/22 12:40 07/17/22 14:19 07/17/22 15:00 Temperature 36.3 C L Temperature Source Temporal Artery Scan Pulse Rate 100 H 112 H Pulse Rate [Apical] 102 H Pulse Rhythm Regular Pulse Rhythm [Apical] Regular Pulse Strength [Apical] Normal Respiratory Rate 18 20 20 Respiratory Effort / Characteristics Non-Labored Non-Labored Respiratory Depth Normal Normal Respiratory Pattern Regular Blood Pressure 80/56 L Blood Pressure [Right Arm] 106/58 L Blood Pressure Mean 64 Blood Pressure Mean [Right Arm] 74 Blood Pressure Position [Right Arm] Lying Pulse Oximetry 93 97 99 Oxygen Delivery Method Nasal Cannula Nasal Cannula Nasal Cannula Oxygen Flow Rate 2 2 2 Sepsis Recent Fever Within 48 Hours No Sepsis New/Unexplained Change in Mental Status No Sepsis Action Taken by Nursing No Action Required Laboratory Data Result diagrams: 07/17/22 13:16 07/17/22 13:16 Lab Results 07/17/22 07/17/22 07/17/22 Range/Units 13:16 13:16 13:16 WBC 9.25 (4.8-10.8) K/ul RBC 3.18 L (3.93-5.22) M/uL Hgb 8.7 L (12.0-16.0) g/dl Hct 27.5 L (34.1-44.9) % MCV 86.5 (80.0-100.0) fL MCH 27.4 (25.0-34.0) pg MCHC 31.6 L (32.0-36.0) g/dL RDW Std Deviation 53.1 H (36.4-46.3) fL RDW Coeff of Jesika 17.0 H (11.5-14.5) % Plt Count 467 H (130-400) K/uL MPV 9.5 (9.4-12.3) fL Immature Gran % (Auto) 0.5 % Neut % (Auto) 74.6 % Lymph % (Auto) 12.3 % [place] % (Auto) 10.8 % Eos % (Auto) 1.4 % Baso % (Auto) 0.4 % Neut # (Auto) 6.89 H (1.4-6.5) K/uL Lymph # (Auto) 1.14 L (1.2-3.4) K/uL [place] # (Auto) 1.00 H (0.24-0.82) K/uL Eos # (Auto) 0.13 (0-0.50) K/uL Baso # (Auto) 0.04 (0-0.2) K/uL Immature Gran # (Auto) 0.05 H (0.00-0.02) K/uL PT (9.0-12.0) Seconds INR (0.9-1.1) APTT (21.0-31.0) Seconds PTT Ratio Sodium 138 (136-145) mmol/L Potassium 3.1 L (3.5-5.1) mmol/L Chloride 102 (98-107) mmol/L Carbon Dioxide 29 (21-32) mmol/L Anion Gap 7 (3-11) BUN 12 (6-23) mg/dl Creatinine 0.86 (0.6-1.2) mg/dl Est Cr Clr Drug Dosing Not Reportable Est GFR ( Amer) 72.4 ml/min Est GFR (Non-Af Amer) 62.5 ml/min BUN/Creatinine Ratio 14.0 (10-20) Glucose 154 H (70-99(Fasting)) mg/dl Lactate (0.4-2.0) mmol/L Calcium 8.9 (8.5-10.1) mg/dl Total Bilirubin 0.5 (0.2-1.0) mg/dl AST 8 L (13-39) U/L ALT 5 L (7-52) U/L Alkaline Phosphatase 103 (34-104) U/L Troponin I High Sens 15.3 H (0-14) pg/ml Total Protein 5.9 L (6.0-8.3) gm/dl Albumin 2.9 L (3.4-5.0) gm/dl Globulin 3.0 (2.5-4.0) gm/dl Albumin/Globulin Ratio 1.0 (0.9-2) Lipase 6 L (11-82) U/L SARS-CoV-2, RNA, NAAT (NEGATIVE) Blood Type O Positive Antibody Screen NEGATIVE 07/17/22 07/17/22 07/17/22 Range/Units 13:16 13:16 13:20 WBC (4.8-10.8) K/ul RBC (3.93-5.22) M/uL Hgb (12.0-16.0) g/dl Hct (34.1-44.9) % MCV (80.0-100.0) fL MCH (25.0-34.0) pg MCHC (32.0-36.0) g/dL RDW Std Deviation (36.4-46.3) fL RDW Coeff of Jesika (11.5-14.5) % Plt Count (130-400) K/uL MPV (9.4-12.3) fL Immature Gran % (Auto) % Neut % (Auto) % Lymph % (Auto) % [place] % (Auto) % Eos % (Auto) % Baso % (Auto) % Neut # (Auto) (1.4-6.5) K/uL Lymph # (Auto) (1.2-3.4) K/uL [place] # (Auto) (0.24-0.82) K/uL Eos # (Auto) (0-0.50) K/uL Baso # (Auto) (0-0.2) K/uL Immature Gran # (Auto) (0.00-0.02) K/uL PT 12.1 H (9.0-12.0) Seconds INR 1.1 (0.9-1.1) APTT 26.1 (21.0-31.0) Seconds PTT Ratio 0.9 Sodium (136-145) mmol/L Potassium (3.5-5.1) mmol/L Chloride (98-107) mmol/L Carbon Dioxide (21-32) mmol/L Anion Gap (3-11) BUN (6-23) mg/dl Creatinine (0.6-1.2) mg/dl Est Cr Clr Drug Dosing Est GFR ( Amer) ml/min Est GFR (Non-Af Amer) ml/min BUN/Creatinine Ratio (10-20) Glucose (70-99(Fasting)) mg/dl Lactate 1.4 (0.4-2.0) mmol/L Calcium (8.5-10.1) mg/dl Total Bilirubin (0.2-1.0) mg/dl AST (13-39) U/L ALT (7-52) U/L Alkaline Phosphatase (34-104) U/L Troponin I High Sens (0-14) pg/ml Total Protein (6.0-8.3) gm/dl Albumin (3.4-5.0) gm/dl Globulin (2.5-4.0) gm/dl Albumin/Globulin Ratio (0.9-2) Lipase (11-82) U/L SARS-CoV-2, RNA, NAAT NEGATIVE (NEGATIVE) Blood Type Antibody Screen Administered Medications Discontinued Medications Fentanyl Citrate (Fentanyl Citrate 100 Mcg/2 Ml Vial) 50 mcg IV NOW STA Stop: 07/17/22 13:34 Last Admin: 07/17/22 13:45 Dose: 50 mcg Documented By: JANN Pantoprazole Sodium 80 mg/ (Dextrose) 100 mls @ 400 mls/hr IV NOW ONE Stop: 07/17/22 13:06 Last Infusion: 07/17/22 13:59 Dose: 0 mls/hr Documented By: Admin: 07/17/22 13:23 Dose: 400 mls/hr Documented By: JANN Sodium Chloride (Nss 1000ml) 250 mls @ 999 mls/hr IV .Q16M ONE Stop: 07/17/22 13:45 Last Infusion: 07/17/22 14:03 Dose: 0 mls/hr Documented By: Admin: 07/17/22 13:45 Dose: 999 mls/hr Documented By: LRS Piperacillin Sod/Tazobactam Sod (Zosyn) 4.5 gm in 120 mls @ 240 mls/hr IV NOW ONE Stop: 07/17/22 15:15 Last Infusion: 07/17/22 15:47 Dose: 0 mls/hr Documented By: Admin: 07/17/22 15:13 Dose: 240 mls/hr Documented By: LRS Imaging Data Radiologist's Impression: Abdomen/Pelvis CT 07/17/22 12:[address] WITHOUT CONTRAST CT DOSE: 1139.48 mGycm HISTORY: Acute left lower quadrant abdominal pain with bloody stool LLQ pain, bloody stool, ?diverticulitis TECHNIQUE: Multiaxial CT images of the abdomen and pelvis were performed without contrast. A dose lowering technique was utilized adhering to the principles of ALARA. COMPARISON STUDY: CT abdomen and pelvis 06/04/2022 FINDINGS: Cardiomegaly with coronary artery calcifications. Mural fibrofatty changes of the left ventricular apex suggestive of prior myocardial infarction. Subsegmental bibasilar atelectasis/scarring. Study is mildly degraded by respiratory motion artifact. The unenhanced spleen, moderately atrophic pancreas and right adrenal gland are unremarkable. Stable 1.9 cm left adrenal gland adenoma. The gallbladder appears surgically absent. Unremarkable liver. Mild nonspecific bilateral perinephric stranding. No ureteral calculi or hydronephrosis. Exophytic 1.9 cm cyst of the superior pole right kidney. Subcentimeter hypodensity of the inferior pole right kidney also likely represents a cyst. Atherosclerosis of the aorta without aneurysm. No new lymphadenopathy identified. There is no small bowel obstruction. Colonic diverticulosis. Marked wall thickening of the sigmoid colon with colonic diverticulosis redemonstrated. Inflammatory stranding surrounding the mid sigmoid with several small gas and fluid containing collections within the sigmoid mesocolon appear stable in size from the prior study. The largest locule of extraluminal air measures 1.4 cm. No drainable fluid collection identified. Additionally, lungs are suggestive of a colovesicular fistula on image 3-6 with a large amount of air within the bladder lumen. Urinary bladder is thick-walled with hyperemia. Trace ascites. Endomet rial thickening redemonstrated. Unremarkable soft tissues. Fat filled supraumbilical left paracentral hernia, diastases of 2.8 cm. Degenerative changes of the spine, pelvis and hips. Unchanged grade 1 anterolisthesis L4 on L5. IMPRESSION: 1. Acute sigmoid diverticulitis with several small gas and fluid containing collections within the sigmoid mesocolon compatible with contained perforations/small abscesses. These findings are similar to the 06/04/2022 study. No drainable fluid collection identified. 2. 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 3. The previously described endometrial thickening is better seen on the comparison contrast-enhanced study. 4. No bowel obstruction. 5. Additional findings as above. ACT 112: Negative or not required by law. The above report was generated using voice recognition software. It may contain grammatical, syntax or spelling errors. Electronically signed by: Gabe Aviles M.D. 07/17/2022 2:41 PM Discharge Plan Visit Data Chief Complaint: Rectal Bleed Stated Complaint: diverticulitis, rectal bleeding ED Provider: Chuck Marin Discharge Problem: Diverticulitis large intestine, Chronic atrial fibrillation, Abdominal pain, LLQ Patient Disposition: Being Evaluated by Hospitalist Forms Stand Alone Forms: My [facility] Prescriptions Prescriptions: No Action methimazole 5 mg tablet 2.5 mg PO DAILY Qty: 15 1RF albuterol sulfate [Ventolin HFA] 90 mcg/actuation HFA aerosol inhaler 2 puff INHALATION QID PRN (Reason: Shortness Of Breath) Qty: 6.7 11RF Spiriva Respimat 1.25 mcg/actuation mist 2 puff inhalation DAILY Qty: 1 11RF sertraline 25 mg tablet 25 mg PO DAILY aspirin [Kenzie Low Dose Aspirin] 81 mg tablet,delayed release (DR/EC) 81 mg PO DAILY lisinopril 2.5 mg tablet 2.5 mg PO DAILY dicyclomine 20 mg tablet 20 mg PO DAILY spironolactone 25 mg tablet 12.5 mg PO 3XWK Rx Instructions: MON, WED, & FRI. multivitamin Tablet 1 tab PO QAM promethazine 25 mg Tablet 25 mg PO Q6H PRN (Reason: nausea and vomiting) Qty: 60 0RF atorvastatin 40 mg Tablet 40 mg PO HS docusate sodium 100 mg Capsule 100 mg PO QAM omeprazole 20 mg Capsule,Delayed Release(Dr/Ec) 20 mg PO BID cholecalciferol (vitamin D3) [Vitamin D3] 1,000 unit Capsule 2,000 unit PO QAM ferrous sulfate [iron] 325 mg (65 mg iron) tablet 325 mg PO QAM glimepiride 4 mg tablet 2 mg PO QAM Rx Instructions: checks sugar first and if below 100 holds zafirlukast 20 mg tablet 20 mg PO QAM albuterol sulfate 2.5 mg /3 mL (0.083 %) Solution For Nebulization 2.5 mg INHALATION BID PRN (Reason: .WORSENING ASTHMA) brinzolamide [Azopt] 1 % Drops,Suspension 1 drp OPB BID Lumigan 0.01 % drops 1 drp OPB HS polyethylene glycol 3350 [Miralax] 17 gram/dose Powder 17 g PO BID PRN (Reason: Constipation) Rx Instructions: TAKE 17G BY MOUTH 2 TIMES A DAY. ONE CAPFULL IN JUICE, TO EFFECT 1 STOOL PER DAY. hydrocodone-acetaminophen 5-325 mg Tablet 1 tab PO Q6H PRN (Reason: Pain) Probiotic 3 billion cell Capsule 3,000 mmu cells PO QAM metoprolol tartrate 25 mg Tablet See Rx Instructions .ROUTE .COMPLEX Rx Instructions: 25 mg orally ;1 tab AM and 1/2 tab PM furosemide 40 mg tablet 40 mg PO BID ondansetron 8 mg Tablet,Disintegrating 8 mg PO Q8H PRN (Reason: Nausea And Vomiting) potassium chloride [Klor-Con M20] 20 mEq tablet,ER particles/crystals 20 meq PO DAILY Combivent Respimat 20-100 mcg/actuation mist 1 puff INHALATION QID Referrals Referrals: Marcela Pinto MD [Primary Care Provider] - : Diverticulitis large intestine Qualifiers: Diverticulitis bleeding: with bleeding Diverticulitis complication: with perforation and abscess Qualified Code(s): K57.21 - Diverticulitis of large intestine with perforation and abscess with bleeding
[2022-07-17] MEDS ORDERED: SODIUM CHLORIDE 0.9% 1000ML 250 ML IV ONE (13:30)
[2022-07-17] MEDS ORDERED: fentaNYL citrate 100 MCG/2 ML VIAL IV STA (13:33)
[2022-07-17 13:49] LABS: Basophils # (auto) 0.04 K/uL (0-0.2); Basophils % (auto) 0.4 %; Eosinophils # (auto) 0.13 K/uL (0-0.50); Eosinophils % (auto) 1.4 %; Hematocrit (blood only) 27.5 % (34.1-44.9); Hemoglobin 8.7 g/dl (12.0-16.0); INR 1.1 (0.9-1.1); Immature Granulocytes # (auto) 0.05 K/uL (0.00-0.02); Immature Granulocytes % (auto) 0.5 %; Lymphocytes # (auto) 1.14 K/uL (1.2-3.4); Lymphocytes % (auto) 12.3 %; Mean Corpuscular Hemoglobin 27.4 pg (25.0-34.0); Mean Corpuscular Hgb Conc 31.6 g/dL (32.0-36.0); Mean Corpuscular Volume 86.5 fL (80.0-100.0); Mean Platelet Volume 9.5 fL (9.4-12.3); Monocytes % (auto) 10.8 %; Neutrophils # (auto) 6.89 K/uL (1.4-6.5); Neutrophils % (auto) 74.6 %; Partial Thromboplastin Ratio 0.9; Partial Thromboplastin Time 26.1 Seconds (21.0-31.0); Platelet Count 467 K/uL (130-400); Prothrombin Time 12.1 Seconds (9.0-12.0); RDW Standard Deviation 53.1 fL (36.4-46.3); Red Blood Count 3.18 M/uL (3.93-5.22); White Blood Count 9.25 K/ul (4.8-10.8)
[2022-07-17 14:06] LABS: Alanine Aminotransferase 5 U/L (7-52); Albumin Level 2.9 gm/dl (3.4-5.0); Alkaline Phosphatase 103 U/L (34-104); Anion Gap 7 (3-11); Aspartate Aminotransferase 8 U/L (13-39); Bilirubin,Total 0.5 mg/dl (0.2-1.0); Blood Urea Nitrogen 12 mg/dl (6-23); Calcium 8.9 mg/dl (8.5-10.1); Carbon Dioxide 29 mmol/L (21-32); Chloride 102 mmol/L (98-107); Est GFR (African American) 72.4 ml/min; Est GFR (Non-African American) 62.5 ml/min; Glucose 154 mg/dl (70-99(Fasting)); Lipase 6 U/L (11-82); Potassium 3.1 mmol/L (3.5-5.1); Sodium 138 mmol/L (136-145); Total Protein 5.9 gm/dl (6.0-8.3)
--- NOTE | 2022-07-17 14:42 | CT Scan Report ---
ABDOMEN AND PELVIS CT WITHOUT CONTRAST CT DOSE: 1139.48 mGycm HISTORY: Acute left lower quadrant abdominal pain with bloody stool LLQ pain, bloody stool, ?diverti culitis TECHNIQUE: Multiaxial CT images of the abdomen and pelvis were performed without contrast. A dose lo wering technique was utilized adhering to the principles of ALARA. COMPARISON STUDY: CT abdomen and pelvis 06/04/2022 FINDINGS: Cardiomegaly with coronary artery calcifications. Mural fibrofatty changes of the left vent ricular apex suggestive of prior myocardial infarction. Subsegmental bibasilar atelectasis/scarring. Study is mildly degraded by respiratory motion artifact. The unenhanced spleen, moderately atrophic p ancreas and right adrenal gland are unremarkable. Stable 1.9 cm left adrenal gland adenoma. The gallb ladder appears surgically absent. Unremarkable liver. Mild nonspecific bilateral perinephric stranding. No ureteral calculi or hydronephrosis. Exophytic 1. 9 cm cyst of the superior pole right kidney. Subcentimeter hypodensity of the inferior pole right kid davon also likely represents a cyst. Atherosclerosis of the aorta without aneurysm. No new lymphadenopa thy identified. There is no small bowel obstruction. Colonic diverticulosis. Marked wall thickening of the sigmoid co pamela with colonic diverticulosis redemonstrated. Inflammatory stranding surrounding the mid sigmoid wi th several small gas and fluid containing collections within the sigmoid mesocolon appear stable in s ize from the prior study. The largest locule of extraluminal air measures 1.4 cm. No drainable fluid collection identified. Additionally, lungs are suggestive of a colovesicular fistula on image 3-6 wit h a large amount of air within the bladder lumen. Urinary bladder is thick-walled with hyperemia. Tra ce ascites. Endometrial thickening redemonstrated. Unremarkable soft tissues. Fat filled supraumbilical left paracentral hernia, diastases of 2.8 cm. De generative changes of the spine, pelvis and hips. Unchanged grade 1 anterolisthesis L4 on L5. IMPRESSION: 1. Acute sigmoid diverticulitis with several small gas and fluid containing collections within the si gmoid mesocolon compatible with contained perforations/small abscesses. These findings are similar to the 06/04/2022 study. No drainable fluid collection identified. 2. 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 3. The previously described endometrial thickening is better seen on the comparison contrast-enhanced study. 4. No bowel obstruction. 5. Additional findings as above. ACT 112: Negative or not required by law. The above report was generated using voice recognition software. It may contain grammatical, syntax o r spelling errors. Electronically signed by: Gabe Aviles M.D. 07/17/2022 2:41 PM
[2022-07-17] MEDS ORDERED: PIPERACILLIN/TAZOBACTAM 4.5 GM/120 ML BAG IV ONE (14:46)
[2022-07-17 14:53] LABS: Troponin I High Sensitivity 15.3 pg/ml (0-14)
--- NOTE | 2022-07-17 15:57 | Electrocardiogram Report ---
Test Reason : Blood Pressure : / mmHG Vent. Rate : 114 BPM Atrial Rate : 258 BPM P-R Int : 000 ms QRS Dur : 122 ms QT Int : 362 ms P-R-T Axes : 000 -32 123 degrees QTc Int : 498 ms Atrial fibrillation with rapid ventricular response Left axis deviation Left ventricular hypertrophy with QRS widening Abnormal ECG When compared with ECG of 31-MAY-2022 18:41, Inverted T waves have replaced nonspecific T wave abnormality in Lateral leads Confirmed by Samuel Thomas ([id number]) on 07/17/2022 3:56:37 PM Referred By: Confirmed By:Jigar Thomas
--- NOTE | 2022-07-17 16:26 | Surgery Consultation ---
Date of Consultation July 17, 2022 Assessment & Plan (1) Diverticulitis large intestine: She has smoldering diverticulitis with colovesical fistula. No acute abdominal findings, normal WBC and CT similar to previous. Continue treatment with IV abx, she can have clear liquids as we have no plans for surgical intervention. This is her third admission in four months, would consider extended home IV abx and outpatient follow-up with colorectal surgery. Supervising Physician Co-Signing Physician Notes I personally saw and evaluated the patient with Wayne Johnson PA-C and agree with the assessment and plan. 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 antibiotics as well as a follow-up with colorectal surgery Will continue to follow History of Present Illness History of Present Illness 81 y/o female with diverticulitis and colovesical fistula now with increasing LLQ pain, appetite loss and dark blood per rectum over the past several days. Initially admitted here in late April, again in lat May and was transferred to [place] where she was kept on IB abx for a few days then discharged on 12 days of pills. Did well for a few weeks then started gradual decline. Surgery has been avoided due her cardiopulmonary history, she saw her material manager this week who recommends against surgery if possible. She does not have f/u planned with colorectal. Allergies Allergy/AdvReac Type Severity Reaction Status Date / Time salmon oil Allergy Severe HIVES-REDDENED Verified 07/17/22 15:22 ALL OVER Iodinated Contrast Media Allergy Intermediate HIVES-GI Verified 07/17/22 15:22 SYMPTOMS valsartan Allergy Intermediate FAST HEART Verified 07/17/22 15:22 BEAT bupropion AdvReac Mild GI SYMPTOMS Verified 07/17/22 15:22 enalapril AdvReac Mild GI SYMPTOMS Verified 07/17/22 15:22 escitalopram AdvReac Mild GI SYMPTOMS Verified 07/17/22 15:22 metoprolol AdvReac Mild LOWERS Verified 07/17/22 15:22 PULSE RATE verapamil AdvReac Mild GI UPSET, Verified 07/17/22 15:22 fast heart rate Home Medications Medication Instructions Recorded Confirmed Type atorvastatin 40 mg tablet 40 mg PO HS 06/23/19 07/17/22 History cholecalciferol (vitamin D3) 25 2,000 unit PO QAM 06/23/19 07/17/22 History mcg (1,000 unit) capsule (Vitamin D3) docusate sodium 100 mg capsule 100 mg PO QAM 06/23/19 07/17/22 History omeprazole 20 mg capsule,delayed 20 mg PO BID 06/23/19 07/17/22 History release albuterol sulfate 2.5 mg/3 mL 2.5 mg inhalation BID PRN 09/25/19 07/17/22 History (0.083 %) solution for nebulization .WORSENING ASTHMA bimatoprost 0.01 % eye drops 1 drp OPB HS 09/25/19 07/17/22 History (Lumigan) brinzolamide 1 % eye 1 drp OPB BID 09/25/19 07/17/22 History drops,suspension (Azopt) polyethylene glycol 3350 17 17 g PO BID PRN Constipation 09/25/19 07/17/22 History gram/dose oral powder (Miralax) ferrous sulfate 325 mg (65 mg 325 mg PO QAM 02/23/20 07/17/22 History iron) tablet (iron) glimepiride 4 mg tablet 2 mg PO QAM PRN Hyperglycemia 02/23/20 07/17/22 History multivitamin 1 tab PO QAM 06/02/20 07/17/22 History promethazine 25 mg tablet 25 mg PO Q6H PRN nausea and 06/16/20 07/17/22 Rx vomiting #60 tabs hydrocodone 5 mg-acetaminophen 325 1 tab PO Q6H PRN Pain 07/28/20 07/17/22 History mg tablet lactobacillus combination no.4 3 3,000 mmu cells PO QAM 07/28/20 07/17/22 History billion cell capsule (Probiotic) zafirlukast 20 mg tablet 20 mg PO QAM 09/11/20 07/17/22 History aspirin 81 mg tablet,delayed 81 mg PO DAILY 02/05/21 07/17/22 History release (Kenzie Low Dose Aspirin) lisinopril 2.5 mg tablet 2.5 mg PO DAILY 02/05/21 07/17/22 History ipratropium 20 mcg-albuterol 100 1 puff inhalation QID 04/09/21 07/17/22 History mcg/actuation mist for inhalation (Combivent Respimat) potassium chloride 20 mEq 20 meq PO DAILY 04/09/21 07/17/22 History tablet,extended release(part/cryst) (Klor-Con M) tiotropium bromide 1.25 2 puff inhalation DAILY #1 inhaler 09/10/21 07/17/22 Rx mcg/actuation mist for inhalation (Spiriva Respimat) dicyclomine 20 mg tablet 20 mg PO DAILY 01/14/22 07/17/22 History spironolactone 25 mg tablet 12.5 mg PO MOWEFR 01/14/22 07/17/22 History sertraline 25 mg tablet 25 mg PO DAILY 03/13/22 07/17/22 History albuterol sulfate 90 mcg/actuation 2 puff inhalation QID PRN 05/03/22 07/17/22 Rx aerosol inhaler (Ventolin HFA) Shortness Of Breath #6.7 grams furosemide 40 mg tablet 40 mg PO BID 05/31/22 07/17/22 History ondansetron 8 mg disintegrating 8 mg PO Q8H PRN Nausea And Vomiting 05/31/22 07/17/22 History tablet methimazole 5 mg tablet 5 mg PO DAILY 07/17/22 07/17/22 History metoprolol succinate 25 mg 12.5 mg PO PM 07/17/22 07/17/22 History tablet,extended release 24 hr metoprolol succinate 25 mg 25 mg PO DAILY 07/17/22 07/17/22 History tablet,extended release 24 hr Patient History Medical History Aortic valve stenosis, mild Asthma Chris-tachy syndrome Chronic atrial fibrillation Chronic diastolic CHF (congestive heart failure) Chronic HFrEF (heart failure with reduced ejection fraction) Chronic respiratory failure with hypoxia and hypercapnia COPD (chronic obstructive pulmonary disease) Diabetes mellitus, type 2 Esophageal reflux Glaucoma of both eyes Hyperlipidemia Hypertension Lower GI bleed NICM (nonischemic cardiomyopathy) On home oxygen therapy 2L N/C at all times and 4 L N/C at night JORDAN (obstructive sleep apnea) Sleep apnea Subclinical hyperthyroidism Subepithelial mass of stomach Surgical History H/O colonoscopy "04/2014 - diverticular disease throughout colon, internal hemorrhoids, polyp removed" History of appendectomy History of cardiac cath "YEARS AGO"NO BLOCKAGES/NO STENTS-F/U DR THOMSON History of cholecystectomy History of dilatation and curettage History of esophagogastroduodenoscopy (EGD) "04/2014 - normal" History of incisional hernia repair History of tooth extraction all teeth Hx of small bowel obstruction "11/2017 - Seen [facility] - surgical intervention" Nausea and vomiting after administration of anesthetic agent Presence of Watchman left atrial appendage closure device 11/2019 @ [facility] Dr. Velez Status post tonsillectomy and adenoidectomy Status post tubal ligation Family History Mother Breast cancer Father Heart disease Brother COPD (chronic obstructive pulmonary disease) Aunt Diabetes Son JORDAN (obstructive sleep apnea) Daughter Asthma Other No family history of adverse response to anesthesia No pertinent family history in first degree relatives 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 Smoking Status: Never smoker Second Hand Exposure: No; Do You Dip or Chew Tobacco: No; Tobacco Cessation Education Requested by Patient: No Hx Alcohol Use: No Hx Substance Use: No Preferred Language: Belarusian Communication Ability: Effective M48 M60 Armor Crewman Required: No Beliefs That Will Affect Care: None marital status: / Current Living Situation: Alone Feels Safe at Home: Yes Safety Concerns: Feels Safe At This Time Assistive Devices: Walker Review of Systems Constitutional: + malaise, + anorexia and + weight loss (20 pounds past 5 mos); no fever and no chills Respiratory: no cough and no dyspnea Gastrointestinal: + abdominal pain and + blood in stools; no bloating, no nausea and no vomiting Physical Exam Constitutional: no acute distress Respiratory: normal respiratory effort Cardiovascular: Rate/Rhythm: + tachycardic Gastrointestinal (Abdomen): Inspection/Auscultation: abdomen not distended Percussion/Palpation: + abdomen tender (mild LLQ) and abdomen soft; no guarding Results & Data ([facility]) Vital Signs (Past 12 Hours) Vital Signs Temp Pulse Pulse Resp BP BP Pulse Ox 07/17/22 15:00 102 H 20 106/58 L 99 07/17/22 14:19 112 H 20 97 07/17/22 12:40 36.3 C L 100 H 18 80/56 L 93 O2 Del Method O2 Flow Rate 07/17/22 15:00 Nasal Cannula 2 07/17/22 14:19 Nasal Cannula 2 07/17/22 12:40 Nasal Cannula 2 PG Care Time/CCT Total # of Minutes Spent Total Time Spent with Patient: Total time spent is greater than 50% in coordination of care (as documented) at patient's floor/unit and/or counseling patient: Coding Level of Care Code 74723 Initial Inpt Care Lvl 1 Diagnoses Diverticulitis large intestine K57.21 Diverticulitis bleeding: with bleeding Diverticulitis complication: with perforation and abscess (1) Diverticulitis large intestine Diverticulitis bleeding: with bleeding Diverticulitis complication: with perforation and abscess Qualified Code(s): K57.21 - Diverticulitis of large intestine with perforation and abscess with bleeding
[2022-07-17] MEDS: POTASSIUM CHLORIDE / WTR 10 MEQ/100 ML PLCT IV SCH ×2 (16:54→18:22)
[2022-07-17] MEDS ORDERED: ONDANSETRON INJ 2 MG/ML 2 ML VIAL IV PRN (17:18)
[2022-07-17] MEDS ORDERED: ALBUTEROL HFA 8 GM INHALER INH PRN (17:25)
[2022-07-17] MEDS ORDERED: HYDROCODONE/ACETAMOPHEN 5/325MG TAB PO PRN (17:25)
[2022-07-17] MEDS ORDERED: POTASSIUM CHLORIDE CRTAB 20 MEQ TABCR PO STA (17:29)
[2022-07-17] MEDS ORDERED: CARBOHYDRATES FOR HYPOGLYCEMIA PO PRN (17:30)
[2022-07-17] MEDS ORDERED: DEXTROSE 50% 50 ML SYRINGE IV PRN (17:30)
[2022-07-17] MEDS ORDERED: GLUCAGON FOR INJ 1 MG VIAL SQ PRN (17:30)
[2022-07-17] MEDS ORDERED: GLUCOSE 40% GEL 15 GM TUBE PO PRN (17:30)
[2022-07-17] MEDS ORDERED: GLUCOSE 10 TAB/TUBE PO PRN (17:30)
--- NOTE | 2022-07-17 17:41 | History & Physical Report ---
Date of Service July 17, 2022 Assessment & Plan (1) Diverticulitis large intestine: (2) Abdominal pain, LLQ: (3) Colovesical fistula: (4) Chronic HFrEF (heart failure with reduced ejection fraction): (5) Chronic respiratory failure with hypoxia and hypercapnia: (6) Diabetes mellitus, type 2: (7) Chronic atrial fibrillation: Plan This is an 81-year-old female Who has a significant past medical history of chronic hypoxemic respiratory failure on 2 L of oxygen during day and 4 L at night, COPD with asthma overlap, chronic HFrEF, PAF status post watchman device, CKD stage III, HTN, HLD, T2DM, gastroparesis, history of ischemic colitis, history of diverticulitis, known colovesicular fistula who presents to ED secondary to left lower quadrant pain x2 to 3 days as well as hematochezia x1 day. Acute Sigmoid Diverticulitis, recurrent with small non drainable abscesses Colovesicular Fistula LLQ Pain/Hematochezia admit to med tele consult general surgery - appreciate their recs Clear liquid diet will do gentle IVF x 1 L +KCL re eval volume status in a.m. and assess fluid intake continue prn hydrocone/apap for pain or Tylenol IV Zosyn will consult ID to determine if prolonged antibiotics needed pt will need OP colorectal follow up She is scheduled to see urology at [place] 09/12 to assess colovesicular fistula monitor hgb given hematochezia Hypokalemia replete follow bmp Chronic HFref Nonobstructive CAD Elevated troponin daily weights, strict I and O continue ASA, statin, Lasix, metoprolol, aldactone monitor volume status closely Last echocardiogram 02/2021 revealed EF of 40 to 45% cycle trops, repeat ecg pt denies CP pt had recent weight gain, followed closely by cardiology, had increase in diuretic regimen and successfully diuresed, now back to baseline dosing Chronic hypoxic resp failure with hypoxia, on 2L of O2 during day and 4L at HS COPD JORDAN continue home inhalers no acute exac T2DM controlled, a1c 6.8 06/07/22 novolog per protocol hold oral meds Chronic Atrial Fibrillation continue metoprolol not on OAC 2/2 hx of watchman procedure in 11/2019 Hyperthyroidism continue methimazole Chronic Anemia baseline hgb 9 monitor cbc follows heme recent anemia panel from 07/08 was iron 10, TIBC 162, Tsat 6%, Ferritin 214, B12 and FA WNL DVT ppx: SCDS 2/2 hematochezia PCP: Marcela Pinto FULL CODE Dispo: Rodolfo keita Pt was seen and examined in collaboration with Dr. Caledron, please see addendum Admission and Anticipated Discharge Date Admission Date: July 17, 2022 History of Present Illness Chief Complaint: LLQ abd pain x 2-3 days; Bloody BM x 1 day. Primary Care Provider: Marcela Pinto MD This is an 81-year-old female Who has a significant past medical history of chronic hypoxemic respiratory failure on 2 L of oxygen during day and 4 L at night, COPD with asthma overlap, chronic HFrEF, PAF status post watchman device, CKD stage III, HTN, HLD, T2DM, gastroparesis, history of ischemic colitis, history of diverticulitis, known colovesicular fistula who presents to ED secondary to left lower quadrant pain x2 to 3 days as well as hematochezia x1 day. Her daughter Stephani is at bedside. Patient states approximately 2 to 3 days ago she developed intermittent left lower quadrant pain. Pain was nonradiating, made worse with touch, made better with bowel movements, similar to previous episode of diverticulitis and associated with hematochezia that started today. She also notes bowel changes as typically she is constipated in the last 2 to 3 days she has had loose bowel movements. Of significance patient has recurrent complicated diverticulitis. Previously had been admitted to [facility] and treated with nonoperative conservative management and did well. She has been seen by general surgery on 07/08 for follow-up to discuss possible surgical intervention. Surgical invention includes laparoscopic/possible open low anterior resection and takedown of colovesicular fistula. She was deemed high risk given her cardiac history and comorbidities. She is scheduled to follow-up with [facility] 09/12 to discuss surgical intervention. She denies f/c/s, dizziness, lightheaded, chest pain, sob, uri sx, n/v, dysuria, increased urg/freq with urination. She has chronic SOB but feels this is at baseline with oxygen. Has not required albuterol or increased O2 requirements. CT abdomen pelvis reveals an acute sigmoid diverticulitis with several small gas and fluid containing collections within the sigmoid mesocolon compatible with perforation/small abscesses. Findings are similar to 06/04/2022. No drainable fluid collection. Probable colovesicular fistula with large amount of air again noted in the urinary bladder lumen.She was started on empiric IV Zosyn. Allergies Allergy/AdvReac Type Severity Reaction Status Date / Time salmon oil Allergy Severe HIVES-REDDENED Verified 07/17/22 15:22 ALL OVER Iodinated Contrast Media Allergy Intermediate HIVES-GI Verified 07/17/22 15:22 SYMPTOMS valsartan Allergy Intermediate FAST HEART Verified 07/17/22 15:22 BEAT bupropion AdvReac Mild GI SYMPTOMS Verified 07/17/22 15:22 enalapril AdvReac Mild GI SYMPTOMS Verified 07/17/22 15:22 escitalopram AdvReac Mild GI SYMPTOMS Verified 07/17/22 15:22 metoprolol AdvReac Mild LOWERS Verified 07/17/22 15:22 PULSE RATE verapamil AdvReac Mild GI UPSET, Verified 07/17/22 15:22 fast heart rate Home Medications Medication Instructions Recorded Confirmed Type atorvastatin 40 mg tablet 40 mg PO HS 06/23/19 07/17/22 History cholecalciferol (vitamin D3) 25 2,000 unit PO QAM 06/23/19 07/17/22 History mcg (1,000 unit) capsule (Vitamin D3) docusate sodium 100 mg capsule 100 mg PO QAM 06/23/19 07/17/22 History omeprazole 20 mg capsule,delayed 20 mg PO BID 06/23/19 07/17/22 History release albuterol sulfate 2.5 mg/3 mL 2.5 mg inhalation BID PRN 09/25/19 07/17/22 History (0.083 %) solution for nebulization .WORSENING ASTHMA bimatoprost 0.01 % eye drops 1 drp OPB HS 09/25/19 07/17/22 History (Lumigan) brinzolamide 1 % eye 1 drp OPB BID 09/25/19 07/17/22 History drops,suspension (Azopt) polyethylene glycol 3350 17 17 g PO BID PRN Constipation 09/25/19 07/17/22 History gram/dose oral powder (Miralax) ferrous sulfate 325 mg (65 mg 325 mg PO QAM 02/23/20 07/17/22 History iron) tablet (iron) glimepiride 4 mg tablet 2 mg PO QAM PRN Hyperglycemia 02/23/20 07/17/22 History multivitamin 1 tab PO QAM 06/02/20 07/17/22 History promethazine 25 mg tablet 25 mg PO Q6H PRN nausea and 06/16/20 07/17/22 Rx vomiting #60 tabs hydrocodone 5 mg-acetaminophen 325 1 tab PO Q6H PRN Pain 07/28/20 07/17/22 History mg tablet lactobacillus combination no.4 3 3,000 mmu cells PO QAM 07/28/20 07/17/22 History billion cell capsule (Probiotic) zafirlukast 20 mg tablet 20 mg PO QAM 09/11/20 07/17/22 History aspirin 81 mg tablet,delayed 81 mg PO DAILY 02/05/21 07/17/22 History release (Kenzie Low Dose Aspirin) lisinopril 2.5 mg tablet 2.5 mg PO DAILY 02/05/21 07/17/22 History ipratropium 20 mcg-albuterol 100 1 puff inhalation QID 04/09/21 07/17/22 History mcg/actuation mist for inhalation (Combivent Respimat) potassium chloride 20 mEq 20 meq PO DAILY 04/09/21 07/17/22 History tablet,extended release(part/cryst) (Klor-Con M) tiotropium bromide 1.25 2 puff inhalation DAILY #1 inhaler 09/10/21 07/17/22 Rx mcg/actuation mist for inhalation (Spiriva Respimat) dicyclomine 20 mg tablet 20 mg PO DAILY 01/14/22 07/17/22 History spironolactone 25 mg tablet 12.5 mg PO MOWEFR 01/14/22 07/17/22 History sertraline 25 mg tablet 25 mg PO DAILY 03/13/22 07/17/22 History albuterol sulfate 90 mcg/actuation 2 puff inhalation QID PRN 05/03/22 07/17/22 Rx aerosol inhaler (Ventolin HFA) Shortness Of Breath #6.7 grams furosemide 40 mg tablet 40 mg PO BID 05/31/22 07/17/22 History ondansetron 8 mg disintegrating 8 mg PO Q8H PRN Nausea And Vomiting 05/31/22 07/17/22 History tablet methimazole 5 mg tablet 5 mg PO DAILY 07/17/22 07/17/22 History metoprolol succinate 25 mg 12.5 mg PO PM 07/17/22 07/17/22 History tablet,extended release 24 hr metoprolol succinate 25 mg 25 mg PO DAILY 07/17/22 07/17/22 History tablet,extended release 24 hr Past Med/Surg History Medical History Aortic valve stenosis, mild Asthma Chris-tachy syndrome Chronic atrial fibrillation Chronic diastolic CHF (congestive heart failure) Chronic HFrEF (heart failure with reduced ejection fraction) Chronic respiratory failure with hypoxia and hypercapnia COPD (chronic obstructive pulmonary disease) Diabetes mellitus, type 2 Esophageal reflux Glaucoma of both eyes Hyperlipidemia Hypertension Lower GI bleed NICM (nonischemic cardiomyopathy) On home oxygen therapy 2L N/C at all times and 4 L N/C at night JORDAN (obstructive sleep apnea) Sleep apnea Subclinical hyperthyroidism Subepithelial mass of stomach Surgical History H/O colonoscopy "04/2014 - diverticular disease throughout colon, internal hemorrhoids, polyp removed" History of appendectomy History of cardiac cath "YEARS AGO"NO BLOCKAGES/NO STENTS-F/U DR THOMSON History of cholecystectomy History of dilatation and curettage History of esophagogastroduodenoscopy (EGD) "04/2014 - normal" History of incisional hernia repair History of tooth extraction all teeth Hx of small bowel obstruction "11/2017 - Seen [facility] - surgical intervention" Nausea and vomiting after administration of anesthetic agent Presence of Watchman left atrial appendage closure device 11/2019 @ [facility] Dr. Velez Status post tonsillectomy and adenoidectomy Status post tubal ligation Family History Mother Breast cancer Father Heart disease Brother COPD (chronic obstructive pulmonary disease) Aunt Diabetes Son JORDAN (obstructive sleep apnea) Daughter Asthma Other No family history of adverse response to anesthesia No pertinent family history in first degree relatives 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 Smoking Status: Never smoker Second Hand Exposure: No; Do You Dip or Chew Tobacco: No; Tobacco Cessation Education Requested by Patient: No Hx Alcohol Use: No Hx Substance Use: No Preferred Language: Burkinan Communication Ability: Effective Payroll Benefits Administrator Required: No Beliefs That Will Affect Care: None marital status: / Current Living Situation: Alone Feels Safe at Home: Yes Safety Concerns: Feels Safe At This Time Assistive Devices: Walker Review of Systems Review of Systems: All systems reviewed & are unremarkable except as noted in HPI & below Physical Exam Physical Exam: Constitutional: WD/WN, elderly, F, vitals as above, NAD, s itting up in bed, pleasant, conversing easily Head: Normocephalic, Atraumatic Eyes: PERRL, conjunctivae normal, anicteric sclerae ENMT: external ear and nose normal, oropharynx normal Neck: trachea midline, no thyromegaly normal visual inspection Respiratory: normal respiratory effort, lungs clear to auscultation, no wheeze, rales, rhonchi. Normal insp/exp effort, no accessory muscle use Cardiovascular: IRR/IRR, s1/s2, no edema Vessels: no JVD or carotid bruit Chest: normal inspection of chest Abdomen: normal bowel sounds, soft, +pain to palp LLQ, no hepatosplenomegaly Musculoskeletal: no cyanosis or clubbing, extremities motor strength 5/5 Skin: no rashes, warm and dry normal turgor Neurologic: PERRL, EOMI, accommodation nl, no face palsy, no dysarthria CN's II-XI intact bilaterally and moves all extremities Psychiatric: A+Ox3, euthymic affect Lymphatic: no cervical or axillary lymphadenopathy : deferred Results & Data Results & Data ([facility]) Vital Signs (Past 12 Hours) Vital Signs Temp Pulse Pulse Resp BP BP Pulse Ox 07/17/22 15:00 102 H 20 106/58 L 99 07/17/22 14:19 112 H 20 97 07/17/22 12:40 36.3 C L 100 H 18 80/56 L 93 O2 Del Method O2 Flow Rate 07/17/22 15:00 Nasal Cannula 2 07/17/22 14:19 Nasal Cannula 2 07/17/22 12:40 Nasal Cannula 2 Diagnostic Findings Abdomen/Pelvis CT 07/17/22 12:[address] WITHOUT CONTRAST CT DOSE: 1139.48 mGycm HISTORY: Acute left lower quadrant abdominal pain with bloody stool LLQ pain, bloody stool, ?diverticulitis TECHNIQUE: Multiaxial CT images of the abdomen and pelvis were performed without contrast. A dose lowering technique was utilized adhering to the principles of ALARA. COMPARISON STUDY: CT abdomen and pelvis 06/04/2022 FINDINGS: Cardiomegaly with coronary artery calcifications. Mural fibrofatty changes of the left ventricular apex suggestive of prior myocardial infarction. Subsegmental bibasilar atelectasis/scarring. Study is mildly degraded by respiratory motion artifact. The unenhanced spleen, moderately atrophic pancreas and right adrenal gland are unremarkable. Stable 1.9 cm left adrenal gland adenoma. The gallbladder appears surgically absent. Unremarkable liver. Mild nonspecific bilateral perinephric stranding. No ureteral calculi or hydronephrosis. Exophytic 1.9 cm cyst of the superior pole right kidney. Subcentimeter hypodensity of the inferior pole right kidney also likely represents a cyst. Atherosclerosis of the aorta without aneurysm. No new lymphadenopathy identified. There is no small bowel obstruction. Colonic diverticulosis. Marked wall thickening of the sigmoid colon with colonic diverticulosis redemonstrated. Inflammatory stranding surrounding the mid sigmoid with several small gas and fluid containing collections within the sigmoid mesocolon appear stable in size from the prior study. The largest locule of extraluminal air measures 1.4 cm. No drainable fluid collection identified. Additionally, lungs are suggestive of a colovesicular fistula on image 3-6 with a large amount of air within the bladder lumen. Urinary bladder is thick-walled with hyperemia. Trace ascites. Endometrial thickening redemonstrated. Unremarkable soft tissues. Fat filled supraumbilical left paracentral hernia, diastases of 2.8 cm. Degenerative changes of the spine, pelvis and hips. Unch anged grade 1 anterolisthesis L4 on L5. IMPRESSION: 1. Acute sigmoid diverticulitis with several small gas and fluid containing collections within the sigmoid mesocolon compatible with contained perforations/small abscesses. These findings are similar to the 06/04/2022 study. No drainable fluid collection identified. 2. 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 3. The previously described endometrial thickening is better seen on the comparison contrast-enhanced study. 4. No bowel obstruction. 5. Additional findings as above. ACT 112: Negative or not required by law. The above report was generated using voice recognition software. It may contain grammatical, syntax or spelling errors. Electronically signed by: Gabe Aviles M.D. 07/17/2022 2:41 PM Medications Administered Medication List Potassium Chloride (K Alejandro / Wtr) 10 meq in 100 mls @ 100 mls/hr IV Q1H ANDREA; Protocol Stop: 07/17/22 17:44 Last Admin: 07/17/22 16:54 Dose: 100 mls/hr Documented By: OL Discontinued Medications Fentanyl Citrate (Fentanyl Citrate 100 Mcg/2 Ml Vial) 50 mcg IV NOW STA Stop: 07/17/22 13:34 Last Admin: 07/17/22 13:45 Dose: 50 mcg Documented By: JANN Pantoprazole Sodium 80 mg/ (Dextrose) 100 mls @ 400 mls/hr IV NOW ONE Stop: 07/17/22 13:06 Last Infusion: 07/17/22 13:59 Dose: 0 mls/hr Documented By: Admin: 07/17/22 13:23 Dose: 400 mls/hr Documented By: LRS Sodium Chloride (Nss 1000ml) 250 mls @ 999 mls/hr IV .Q16M ONE Stop: 07/17/22 13:45 Last Infusion: 07/17/22 14:03 Dose: 0 mls/hr Documented By: Admin: 07/17/22 13:45 Dose: 999 mls/hr Documented By: LRS Piperacillin Sod/Tazobactam Sod (Zosyn) 4.5 gm in 120 mls @ 240 mls/hr IV NOW ONE Stop: 07/17/22 15:15 Last Infusion: 07/17/22 15:47 Dose: 0 mls/hr Documented By: Admin: 07/17/22 15:13 Dose: 240 mls/hr Documented By: JANN ECG Rate (beats per minute): 114 Rhythm: atrial fibrillation COVID-19 Results Results COVID-19 Adm Lab Results: RBC 3.18 M/uL (3.93-5.22) L 07/17/22 WBC 9.25 K/ul (4.8-10.8) 07/17/22 Hgb 8.7 g/dl (12.0-16.0) L 07/17/22 Hct 27.5 % (34.1-44.9) L 07/17/22 Plt Count 467 K/uL (130-400) H 07/17/22 Neutrophils (%) (Auto) 74.6 % 07/17/22 Lymphocytes (%) (Auto) 12.3 % 07/17/22 Monocytes # (Auto) 1.00 K/uL (0.24-0.82) H 07/17/22 Eosinophils # (Auto) 0.13 K/uL (0-0.50) 07/17/22 Immature Granulocyte % (Auto) 0.5 % 07/17/22 Neutrophils # (Auto) 6.89 K/uL (1.4-6.5) H 07/17/22 Lymphocytes # (Auto) 1.14 K/uL (1.2-3.4) L 07/17/22 Monocytes # (Auto) 1.00 K/uL (0.24-0.82) H 07/17/22 Eosinophils # (Auto) 0.13 K/uL (0-0.50) 07/17/22 Basophils # (Auto) 0.04 K/uL (0-0.2) 07/17/22 Immature Granulocyte # (Auto) 0.05 K/uL (0.00-0.02) H 07/17 Na 138 mmol/L (136-145) 07/17/22 K 3.1 mmol/L (3.5-5.1) L 07/17/22 Cl 102 mmol/L (98-107) 07/17/22 CO2 29 mmol/L (21-32) 07/17/22 Anion Gap 7 (3-11) 07/17/22 BUN 12 mg/dl (6-23) 07/17/22 Creatinine 0.86 mg/dl (0.6-1.2) 07/17/22 BUN/Creatinine Ratio 14.0 (10-20) 07/17/22 Glucose Level 154 mg/dl (70-99(Fasting)) H 07/17/22 Ca 8.9 mg/dl (8.5-10.1) 07/17/22 Total Bilirubin 0.5 mg/dl (0.2-1.0) 07/17/22 AST/SGOT 8 U/L (13-39) L 07/17/22 ALT/SGPT 5 U/L (7-52) L 07/17/22 Alkaline Phosphatase 103 U/L (34-104) 07/17/22 Total Protein 5.9 gm/dl (6.0-8.3) L 07/17/22 Albumin 2.9 gm/dl (3.4-5.0) L 07/17/22 Globulin 3.0 gm/dl (2.5-4.0) 07/17/22 Albumin/Globulin Ratio 1.0 (0.9-2) 07/17/22 PTT 26.1 Seconds (21.0-31.0) 07/17/22 INR 1.1 (0.9-1.1) 07/17/22 SARS-CoV-2, RNA, NAAT NEGATIVE (NEGATIVE) 07/17/22 Code Status & VTE Plan Code Status FULL CODE VTE Prophylaxis Plan VTE Prophylaxis will be ordered: Yes Supervising Physician Co-Signing Physician Notes And is an 81-year-old female with multiple comorbidities presents with history of left lower quadrant abdominal pain associated with hematochezia. Patient is currently on aspirin and no other anticoagulation. She denies any NSAIDs use. She has recurrent complicated diverticulitis and was evaluated at [facility] and was suggested conservative management as patient was thought to be at high risk for any surgical procedure given her comorbidities. Please review HPI for complete details of presentation. On exam patient is obese, no apparent distress, normocephalic atraumatic, elderly, EOMI, decreased breath sounds, clear to auscultation, irregularly irregular rhythm, 1+ bilateral pedal edema, abdomen soft, left lower quadrant tender, normal bowel sounds, alert, awake, oriented, grossly no focal deficits. Blood work and imaging studies reviewed. Recurrent diverticulitis, abscess, colovesical secular fistula. Hematochezia likely secondary to diverticulitis. Appreciate surgery input. Continue IV a ntibiotics, IV fluids. Monitor for volume status. Clear liquid diet for now. Pain control as needed. Replace electrolytes for hypokalemia. Hold aspirin for now. Monitor CBC. I personally reviewed the record. Patient is interviewed and examined at bedside. Patient's care is coordinated with Ashley Kimbrough PA-C. Please refer to the documentation above for details of patient's presentation and for discussion of other issues. (1) Diverticulitis large intestine Diverticulitis bleeding: with bleeding Diverticulitis complication: with perforation and abscess Qualified Code(s): K57.21 - Diverticulitis of large int estine with perforation and abscess with bleeding
[2022-07-17] MEDS ORDERED: NSS + 20MEQ KCL 20 MEQ/1,000 ML BAG IV SCH (18:00)
[2022-07-17] MEDS: HYDROCODONE/ACETAMOPHEN 5/325MG TAB PO PRN (18:39)
[2022-07-17] MEDS: Ipratropium HFA Inhaler (Combivent Respimat P&T Subs) INH SCH (19:51)
[2022-07-17] MEDS: Albuterol HFA 8 GM Inhaler (Combivent Respimat P&T Subs) INH SCH (19:51)
[2022-07-17] MEDS: PIPERACILLIN/TAZOBACTAM 4.5 GM in DEXTROSE 5% 100 ML IV SCH (20:29)
[2022-07-17] MEDS: PANTOprazole 40 MG TAB PO SCH (20:33)
[2022-07-17] MEDS: ATORVASTATIN 40 MG TAB PO SCH (20:36)
[2022-07-17] MEDS: BIMATOPROST 0.01% OP SOLN 2.5 ML BTL OPB SCH (20:37)
[2022-07-17] MEDS: BRINZOLAMIDE (AZOPT) OPS 10 ML BTL OPB SCH (20:37)
[2022-07-17] MEDS: INSULIN ASPART PER UNIT SC SCH (20:37)
[2022-07-17] MEDS: METOPROLOL SUCC 25MG EXT REL TAB PO SCH (20:41)
[2022-07-17] MEDS: MoRPHine SULFATE 2 MG/ML CARP IV PRN (20:50)
[2022-07-17] MEDS ORDERED: BIMATOPROST 0.01% OP SOLN 2.5 ML BTL OP SCH (21:00)
[2022-07-17] MEDS ORDERED: IPRATROPIUM BROMIDE/ALBUTEROL respimat INH INH SCH (21:00)
[2022-07-18] MEDS: PIPERACILLIN/TAZOBACTAM 4.5 GM in DEXTROSE 5% 100 ML IV SCH ×3 (05:19→21:03)
[2022-07-18] MEDS: Ipratropium HFA Inhaler (Combivent Respimat P&T Subs) INH SCH ×4 (05:53→19:35)
[2022-07-18] MEDS: Albuterol HFA 8 GM Inhaler (Combivent Respimat P&T Subs) INH SCH ×4 (05:54→19:35)
[2022-07-18 07:18] LABS: Hematocrit (blood only) 25.4 % (34.1-44.9); Hemoglobin 7.8 g/dl (12.0-16.0); Mean Corpuscular Hemoglobin 27.4 pg (25.0-34.0); Mean Corpuscular Hgb Conc 30.7 g/dL (32.0-36.0); Mean Corpuscular Volume 89.1 fL (80.0-100.0); Mean Platelet Volume 9.2 fL (9.4-12.3); Platelet Count 406 K/uL (130-400); RDW Standard Deviation 54.7 fL (36.4-46.3); Red Blood Count 2.85 M/uL (3.93-5.22); White Blood Count 7.26 K/ul (4.8-10.8)
[2022-07-18 07:53] LABS: BUN Creatinine Ratio 12.9 (10-20); Calcium 8.3 mg/dl (8.5-10.1); Creatinine Clr Calc Pharmacy 70.6 ml/min; Est GFR (African American) 92.9 ml/min; Est GFR (Non-African American) 80.1 ml/min; Magnesium 1.5 mg/dl (1.7-2.4); Potassium 3.6 mmol/L (3.5-5.1)
[2022-07-18] MEDS ORDERED: MAGNESIUM SULFATE / D5W 1 GM/100 ML BAG IV ONE (08:00)
--- NOTE | 2022-07-18 08:18 | Electrocardiogram Report ---
Test Reason : Blood Pressure : / mmHG Vent. Rate : 088 BPM Atrial Rate : 277 BPM P-R Int : 000 ms QRS Dur : 124 ms QT Int : 234 ms P-R-T Axes : 000 -56 150 degrees QTc Int : 283 ms Atrial fibrillation Left anterior fascicular block Nonspecific T wave abnormality Abnormal ECG When compared with ECG of 17-JUL-2022 13:07, Nonspecific T wave abnormality now evident in Inferior leads Nonspecific T wave abnormality, worse in Anterior leads Nonspecific T wave abnormality has replaced inverted T waves in Lateral leads Confirmed by Samuel Thomas ([id number]) on 07/18/2022 8:17:48 AM Referred By: REFERRED SELF Confirmed By:Jigar Thomas
[2022-07-18] MEDS: HYDROCODONE/ACETAMOPHEN 5/325MG TAB PO PRN ×3 (08:26→20:45)
[2022-07-18] MEDS: POTASSIUM CHLORIDE CRTAB 20 MEQ TABCR PO SCH (08:27)
[2022-07-18] MEDS: SERTRALINE HCL 50 MG TABLET PO SCH (08:27)
[2022-07-18] MEDS: PANTOprazole 40 MG TAB PO SCH ×2 (08:27→20:37)
[2022-07-18] MEDS: FERROUS SULFATE 325 MG TAB PO SCH (08:29)
[2022-07-18] MEDS: DICYCLOMINE HCL 20 MG TAB PO SCH (08:29)
[2022-07-18] MEDS: ADVANCED PROBIOTIC 1250 MG CAPSULE PO SCH (08:30)
[2022-07-18] MEDS: MULTIVITAMIN TAB PO SCH (08:30)
[2022-07-18] MEDS: CHOLECALCIFEROL 1,000 UNITS 25 MCG TAB PO SCH (08:33)
[2022-07-18] MEDS: methIMAzole 5 MG TABLET PO SCH (08:33)
[2022-07-18] MEDS: UMECLIDINIUM BROMIDE 62.5MCG/BLISTER 7 PUFFS/INHALER INH SCH (08:39)
[2022-07-18] MEDS: BRINZOLAMIDE (AZOPT) OPS 10 ML BTL OPB SCH ×2 (08:40→20:39)
[2022-07-18] MEDS: INSULIN ASPART PER UNIT SC SCH ×4 (09:26→20:50)
[2022-07-18] MEDS: METOPROLOL SUCC 25MG EXT REL TAB PO SCH ×2 (10:27→20:37)
[2022-07-18] MEDS: lisinopril 2.5 MG TAB PO SCH (10:27)
[2022-07-18] MEDS: FUROSEMIDE 40 MG TAB PO SCH ×2 (10:41→17:45)
--- NOTE | 2022-07-18 11:45 | Surgery Progress Note ---
Date of Service July 18, 2022 Assessment & Plan (1) Diverticulitis large intestine: Plan: Patient here with abdominal pain and rectal bleeding CT scan with findings of sigmoid diverticulitis with abscesses and colovesical fistula (similar to previous admission) WBC 7.2; HRs improved Abdomen soft with discomfort to palpation in the LLQ Currently on IV zosyn ID has been consulted for their recommendations No plans for surgical intervention here; consideration to tertiary center with colorectal as outpt Okay to continue clears for today Will follow (2) Colovesical fistula: Admission and Anticipated Discharge Date Admission Date: July 17, 2022 Supervising Physician Co-Signing Physician Notes I personally saw and evaluated the patient with Uyen Tran PA-C and agree with the assessment and plan. 81-year-old female with recurrent diverticulitis with colovesical fistula She is tolerating clears without issue She remains without a leukocytosis and is not febrile or tachycardic We will keep her on clears for today and if she remains stable can advance her diet as tolerated No plans for any surgical intervention Will follow Subjective Patient complaining of some ongoing L abdominal pain. Denies nausea/vomiting. Reports she is still having some BMs. Physical Exam Physical Exam: awake/alert ; no distress Gastrointestinal (Abdomen): Inspection/Auscultation: abdomen not distended Percussion/Palpation: + abdomen tender (ttp llq) and abdomen soft Results & Data ([facility]) Vital Signs (Past 12 Hours) Vital Signs Temp Pulse Resp BP Pulse Ox O2 Del Method O2 Flow Rate 07/18/22 10:27 62 95/68 L 07/18/22 08:12 37.2 C 98 H 20 102/54 L 99 Nasal Cannula 4 07/18/22 05:54 84 18 99 Nasal Cannula 4 07/18/22 02:45 36.6 C 75 18 107/62 99 Nasal Cannula 4 PG Care Time/CCT Total # of Minutes Spent Total Time Spent with Patient: Total time spent is greater than 50% in coordination of care (as documented) at patient's floor/unit and/or counseling patient: Coding Level of Care Code 47355 Subseq Hosp Care Lvl 1 Diagnoses Diverticulitis large intestine K57.21 Diverticulitis bleeding: with bleeding Diverticulitis complication: with perforation and abscess Colovesical fistula N32.1 (1) Diverticulitis large intestine Diverticulitis bleeding: with bleeding Diverticulitis complication: with perforation and abscess Qualified Code(s): K57.21 - Diverticulitis of large intestine with perforation and abscess with bleeding
--- NOTE | 2022-07-18 17:14 | Hospitalist Progress Note ---
Date of Service July 18, 2022 Assessment & Plan (1) Diverticulitis large intestine: (2) Abdominal pain, LLQ: (3) Colovesical fistula: (4) Chronic HFrEF (heart failure with reduced ejection fraction): (5) Chronic respiratory failure with hypoxia and hypercapnia: (6) Diabetes mellitus, type 2: (7) Chronic atrial fibrillation: Plan Patient is an 81 yr female with H/O Chronic hypoxemic respiratory failure on 2 L of oxygen during day and 4 L at night, COPD with asthma overlap, chronic HFrEF, PAF status post watchman device, CKD stage III, HTN, HLD, T2DM, gastroparesis, history of ischemic colitis, history of diverticulitis, known colovesicular fistula who presents to ED secondary to left lower quadrant pain x2 to 3 days as well as hematochezia x1 day. Acute Sigmoid Diverticulitis, recurrent with small non drainable abscesses Colovesicular Fistula Presented with LLQ Pain/Hematochezia --CT ABD:Acute sigmoid diverticulitis with several small gas and fluid containing collections within the sigmoid mesocolon compatible with contained perforations/small abscesses. These findings are similar to the 06/04/2022 study. No drainable fluid collection identified. Probable colovesicular fistula with a large amount of air again noted within the urinary bladder lume -- Blood cultures negative to date Received gentle IV fluids Clear liquid diet for now Continue IV Zosyn Pain control Appreciate surgery, ID input ID recommended Zosyn to be continued for 4 weeks. Will need weekly CBC, CMP. Patient would also require repeat CT in 2 to 3 weeks upon discharge. No plan for any surgical intervention currently as per surgery Monitor CBC and transfuse PRBCs as needed Hypokalemia Hypomagnesemia Replete electrolytes as needed Monitor Chronic HFref Nonobstructive CAD Last echocardiogram 02/2021 revealed EF of 40 to 45% Mild troponin elevation ? Chronic daily weights, strict I and O continue ASA, statin, Lasix, metoprolol, Aldactone monitor volume status closely Chronic hypoxic Respiratory failure with hypoxia Chronic oxygen dependence:on 2L of O2 during day and 4L at HS COPD JORDAN continue home inhalers No signs of acute exacerbation DM II Well controlled, a1c 6.8 06/07/22 Cotninue novolog per protocol hold oral meds Chronic Atrial Fibrillation continue metoprolol not on OAC 2/2 hx of watchman procedure in 11/2019 Hyperthyroidism continue methimazole Chronic Anemia baseline hgb 9 monitor cbc follows hematology Recent anemia panel from 07/08 was iron 10, TIBC 162, Tsat 6%, Ferritin 214, B12 and FA WNL Hemoglobin drop likely secondary to IV fluids Monitor Endometrial thickening Incidental finding on CT Follow-up with OBGYN as outpatient DVT Px: SCDS due to hematochezia Code Status FULL CODE Admission and Anticipated Discharge Date Admission Date: July 17, 2022 Subjective Patient is seen and examined at bedside Reports having brown-colored bowel movement today No significant abdominal pain Tolerating diet States having generalized pain earlier today which improved with pain medications No other complaints Review of Systems Review of Systems: All systems reviewed & are unremarkable except as noted in Subjective Physical Exam Physical Exam: Physical Exam: Vitals signs as noted above General Appearance:Obese, no apparent distress Head: normocephalic, Atraumatic Eyes: normal inspection, EOMI Neck: supple, Trachea midline Respiratory/Chest: Decreased breath sounds, CTA, No accessory muscle use Cardiovascular: Irregularly irregular, No murmur Abdomen/GI:Soft, LLQ mild tender, Bowel sounds present Extremities/Musculoskeletal:normal inspection, 1+ B/L LE edema Neurologic/Psych:AAOX3, grossly no focal neurological deficits Skin: normal color, warm Results & Data Results & Data ([facility]) Vital Signs (Past 12 Hours) Vital Signs Temp Pulse Pulse Resp BP Pulse Ox O2 Del Method 07/18/22 09:00 Nasal Cannula 07/18/22 15:47 96 H 07/18/22 15:30 90 20 97 Nasal Cannula 07/18/22 15:10 36.8 C 87 18 101/65 96 Nasal Cannula 07/18/22 08:00 76 07/18/22 11:43 56 L 18 98 Nasal Cannula 07/18/22 10:27 62 95/68 L 07/18/22 08:12 37.2 C 98 H 20 102/54 L 99 Nasal Cannula 07/18/22 05:54 84 18 99 Nasal Cannula O2 Flow Rate 07/18/22 09:00 2 07/18/22 15:47 07/18/22 15:30 2 07/18/22 15:10 2 07/18/22 08:00 07/18/22 11:43 2 07/18/22 10:27 07/18/22 08:12 4 07/18/22 05:54 4 Laboratory Results Short CBC 07/18/22 Range/Units 07:04 WBC 7.26 (4.8-10.8) K/ul Hgb 7.8 L (12.0-16.0) g/dl Hct 25.4 L (34.1-44.9) % Plt Count 406 H (130-400) K/uL BMP 07/18/22 07:04 Sodium 139 Potassium 3.6 Chloride 106 Carbon Dioxide 29 BUN 9 Creatinine 0.70 Glucose 102 H Calcium 8.3 L (1) Diverticulitis large intestine Diverticulitis bleeding: with bleeding Diverticulitis complication: with perforation and abscess Qualified Code(s): K57.21 - Diverticulitis of large intestine with perforation and abscess with bleeding
[2022-07-18] MEDS: ACETAMINOPHEN 325 MG TAB PO PRN (17:45)
[2022-07-18] MEDS: ATORVASTATIN 40 MG TAB PO SCH (20:37)
[2022-07-18] MEDS: BIMATOPROST 0.01% OP SOLN 2.5 ML BTL OPB SCH (20:40)
[2022-07-19] MEDS: PROMETHAZINE HCL 12.5 MG in SODIUM CHLORIDE 0.9% 50 ML IV PRN ×3 (00:50→20:23)
[2022-07-19] MEDS: PIPERACILLIN/TAZOBACTAM 4.5 GM in DEXTROSE 5% 100 ML IV SCH ×3 (05:27→20:46)
[2022-07-19] MEDS: HYDROCODONE/ACETAMOPHEN 5/325MG TAB PO PRN ×3 (06:08→19:42)
[2022-07-19] MEDS: Ipratropium HFA Inhaler (Combivent Respimat P&T Subs) INH SCH ×4 (07:12→19:20)
[2022-07-19] MEDS: Albuterol HFA 8 GM Inhaler (Combivent Respimat P&T Subs) INH SCH ×4 (07:12→19:20)
[2022-07-19] MEDS: INSULIN ASPART PER UNIT SC SCH ×4 (08:33→20:43)
[2022-07-19] MEDS: POTASSIUM CHLORIDE CRTAB 20 MEQ TABCR PO SCH (08:45)
[2022-07-19] MEDS: PANTOprazole 40 MG TAB PO SCH ×2 (08:45→20:33)
[2022-07-19] MEDS: methIMAzole 5 MG TABLET PO SCH (08:46)
[2022-07-19] MEDS: MULTIVITAMIN TAB PO SCH (08:46)
[2022-07-19] MEDS: ADVANCED PROBIOTIC 1250 MG CAPSULE PO SCH (08:46)
[2022-07-19] MEDS: FUROSEMIDE 40 MG TAB PO SCH ×2 (08:46→17:42)
[2022-07-19] MEDS: lisinopril 2.5 MG TAB PO SCH (08:46)
[2022-07-19] MEDS: SERTRALINE HCL 50 MG TABLET PO SCH (08:46)
[2022-07-19] MEDS: FERROUS SULFATE 325 MG TAB PO SCH (08:46)
[2022-07-19] MEDS: CHOLECALCIFEROL 1,000 UNITS 25 MCG TAB PO SCH (08:46)
[2022-07-19] MEDS: METOPROLOL SUCC 25MG EXT REL TAB PO SCH ×2 (08:46→20:44)
[2022-07-19] MEDS: DICYCLOMINE HCL 20 MG TAB PO SCH (08:47)
[2022-07-19] MEDS: BRINZOLAMIDE (AZOPT) OPS 10 ML BTL OPB SCH ×2 (08:47→20:32)
[2022-07-19] MEDS: UMECLIDINIUM BROMIDE 62.5MCG/BLISTER 7 PUFFS/INHALER INH SCH (08:48)
[2022-07-19] MEDS ORDERED: SPIRONOLACTONE 12.5 MG TAB PO SCH (09:00)
[2022-07-19 09:18] LABS: Hematocrit (blood only) 27.3 % (34.1-44.9); Hemoglobin 8.4 g/dl (12.0-16.0)
[2022-07-19 09:38] LABS: BUN Creatinine Ratio 10.4 (10-20); Calcium 8.2 mg/dl (8.5-10.1); Creatinine Clr Calc Pharmacy 64.4 ml/min; Est GFR (African American) 82.8 ml/min; Est GFR (Non-African American) 71.4 ml/min; Magnesium 1.6 mg/dl (1.7-2.4); Potassium 3.6 mmol/L (3.5-5.1)
[2022-07-19] MEDS ORDERED: MAGNESIUM SULFATE / D5W 1 GM/100 ML BAG IV ONE (09:45)
--- NOTE | 2022-07-19 11:06 | Surgery Progress Note ---
Date of Service July 19, 2022 Assessment & Plan (1) Colovesical fistula: Plan: She is been tolerating clear liquids, will advance her to a low fiber diet and see if she tolerates this She is remained afebrile and without a leukocytosis since admission Infectious disease consult note reviewed With all of her comorbidities and her failure of p.o. antibiotics as an outpatient, I think it is reasonable to give her 4 weeks of IV antibiotics With all of her comorbidities she is not really a surgical candidate for her diverticulitis Surgery will sign off at this time, please call with any questions or concerns (2) Diverticulitis large intestine: Admission and Anticipated Discharge Date Admission Date: July 17, 2022 Subjective Patient seen and examined. States she has less abdominal pain, but a little bit of nausea. Afebrile. Review of Systems Constitutional: no fever and no chills Physical Exam Constitutional: WD/WN, vitals as above Gastrointestinal (Abdomen): Inspection/Auscultation: abdomen normal to inspection; abdomen not distended Percussion/Palpation: + abdomen tender (Mild left lower quadrant and suprapubic) and abdomen soft; no guarding and abdomen not rigid Results & Data ([facility]) Vital Signs (Past 12 Hours) Vital Signs Temp Pulse Pulse Resp BP BP Pulse Ox 07/19/22 08:25 37.0 C 97 H 16 105/72 91 07/19/22 07:13 94 H 19 98 07/19/22 03:54 36.5 C 85 20 106/69 98 07/19/22 01:03 92 H 07/19/22 00:26 07/18/22 23:48 36.6 C 98 H 20 101/66 98 O2 Del Method O2 Flow Rate 07/19/22 08:25 Nasal Cannula 2 07/19/22 07:13 Nasal Cannula 2 07/19/22 03:54 4 07/19/22 01:03 07/19/22 00:26 Nasal Cannula 2 07/18/22 23:48 4 PG Care Time/CCT Total # of Minutes Spent Total Time Spent with Patient: Total time spent is greater than 50% in coordination of care (as documented) at patient's floor/unit and/or counseling patient: Coding Level of Care Code 68070 Subseq Hosp Care Lvl 1 Diagnoses Colovesical fistula N32.1 Diverticulitis large intestine K57.21 Diverticulitis bleeding: with bleeding Diverticulitis complication: with perforation and abscess (1) Diverticulitis large intestine Diverticulitis bleeding: with bleeding Diverticulitis complication: with perforation and abscess Qualified Code(s): K57.21 - Diverticulitis of large intestine with perforation and abscess with bleeding
--- NOTE | 2022-07-19 17:42 | Hospitalist Progress Note ---
Date of Service July 19, 2022 Assessment & Plan (1) Diverticulitis large intestine: (2) Abdominal pain, LLQ: (3) Colovesical fistula: (4) Chronic HFrEF (heart failure with reduced ejection fraction): (5) Chronic respiratory failure with hypoxia and hypercapnia: (6) Diabetes mellitus, type 2: (7) Chronic atrial fibrillation: Plan Patient is an 81 yr female with H/O Chronic hypoxemic respiratory failure on 2 L of oxygen during day and 4 L at night, COPD with asthma overlap, chronic HFrEF, PAF status post watchman device, CKD stage III, HTN, HLD, T2DM, gastroparesis, history of ischemic colitis, history of diverticulitis, known colovesicular fistula who presents to ED secondary to left lower quadrant pain x2 to 3 days as well as hematochezia x1 day. Acute Sigmoid Diverticulitis, recurrent with small non drainable abscesses Colovesicular Fistula Presented with LLQ Pain/Hematochezia --CT ABD:Acute sigmoid diverticulitis with several small gas and fluid containing collections within the sigmoid mesocolon compatible with contained perforations/small abscesses. These findings are similar to the 06/04/2022 study. No drainable fluid collection identified. Probable colovesicular fistula with a large amount of air again noted within the urinary bladder lume -- Blood cultures negative to date Received gentle IV fluids Continue IV Zosyn Pain control Appreciate surgery, ID input ID recommended Zosyn to be continued for 4 weeks. Will need weekly CBC, CMP. Patient would also require repeat CT in 2 to 3 weeks upon discharge. No plan for any surgical intervention currently as per surgery Monitor CBC and transfuse PRBCs as needed Advance to low fiber diet Hypokalemia Hypomagnesemia Replete electrolytes as needed Monitor Chronic HFref Nonobstructive CAD Last echocardiogram 02/2021 revealed EF of 40 to 45% Mild troponin elevation ? Chronic daily weights, strict I and O continue ASA, statin, Lasix, metoprolol, Aldactone monitor volume status closely Chronic hypoxic Respiratory failure with hypoxia Chronic oxygen dependence:on 2L of O2 during day and 4L at HS COPD JORDAN continue home inhalers No signs of acute exacerbation DM II Well controlled, a1c 6.8 06/07/22 Continue NovoLog per protocol hold oral Meds Chronic Atrial Fibrillation continue metoprolol not on OAC 2/2 hx of watchman procedure in 11/2019 Hyperthyroidism continue methimazole Chronic Anemia baseline hgb 9 monitor cbc follows hematology Recent anemia panel from 07/08 was iron 10, TIBC 162, Tsat 6%, Ferritin 214, B12 and FA WNL Hemoglobin drop likely secondary to IV fluids Monitor Endometrial thickening Incidental finding on CT Follow-up with OBGYN as outpatient DVT Px: SCDS due to hematochezia Code Status FULL CODE Admission and Anticipated Discharge Date Admission Date: July 17, 2022 Subjective Patient is seen and examined at bedside States having nausea associated with minimal left lower quadrant abdominal pain today Denies any bleeding issues today Tolerating liquid diet Denies any chest pain, dyspnea, dizziness Offers no other complaints Review of Systems Review of Systems: All systems reviewed & are unremarkable except as noted in Subjective Physical Exam Physical Exam: Physical Exam: Vitals signs as noted above General Appearance:Obese, no apparent distress Head: normocephalic, Atraumatic Eyes: normal inspection, EOMI Neck: supple, Trachea midline Respiratory/Chest: Decreased breath sounds, CTA, No accessory muscle use Cardiovascular: Irregularly irregular, No murmur Abdomen/GI:Soft, LLQ mild tender, Bowel sounds present Extremities/Musculoskeletal:normal inspection, 1+ B/L LE edema Neurologic/Psych:AAOX3, grossly no focal neurological deficits Skin: normal color, warm Results & Data Results & Data ([facility]) Vital Signs (Past 12 Hours) Vital Signs Temp Pulse Pulse Resp BP Pulse Ox O2 Del Method 07/19/22 16:46 37.1 C 95 H 16 93/60 L 96 Nasal Cannula 07/19/22 14:35 81 19 97 Nasal Cannula 07/19/22 14:34 Nasal Cannula 07/19/22 12:34 37.1 C 104 H 16 95/66 L 92 Nasal Cannula 07/19/22 12:21 87 07/19/22 11:21 97 H 18 97 Nasal Cannula 07/19/22 08:25 37.0 C 97 H 16 105/72 91 Nasal Cannula 07/19/22 07:13 94 H 19 98 Nasal Cannula O2 Flow Rate 07/19/22 16:46 2 07/19/22 14:35 2 07/19/22 14:34 2 07/19/22 12:34 2 07/19/22 12:21 07/19/22 11:21 2 07/19/22 08:25 2 10/07/22 07:13 2 Laboratory Results Short CBC 07/19/22 Range/Units 08:52 Hgb 8.4 L (12.0-16.0) g/dl Hct 27.3 L (34.1-44.9) % BMP 07/19/22 08:52 Sodium 140 Potassium 3.6 Chloride 104 Carbon Dioxide 30 BUN 8 Creatinine 0.77 Glucose 157 H Calcium 8.2 L (1) Diverticulitis large intestine Diverticulitis bleeding: with bleeding Diverticulitis complication: with perforation and abscess Qualified Code(s): K57.21 - Diverticulitis of large intestine with perforation and abscess with bleeding
[2022-07-19] MEDS: BIMATOPROST 0.01% OP SOLN 2.5 ML BTL OPB SCH (20:32)
[2022-07-19] MEDS: ATORVASTATIN 40 MG TAB PO SCH (20:32)
[2022-07-19] MEDS: MoRPHine SULFATE 2 MG/ML CARP IV PRN (21:01)
[2022-07-20] MEDS: ACETAMINOPHEN 325 MG TAB PO PRN (01:41)
[2022-07-20] MEDS: PIPERACILLIN/TAZOBACTAM 4.5 GM in DEXTROSE 5% 100 ML IV SCH ×3 (04:49→21:52)
[2022-07-20 06:37] LABS: Hematocrit (blood only) 26.4 % (34.1-44.9); Hemoglobin 8.5 g/dl (12.0-16.0)
[2022-07-20] MEDS: Albuterol HFA 8 GM Inhaler (Combivent Respimat P&T Subs) INH SCH ×4 (07:13→19:33)
[2022-07-20] MEDS: Ipratropium HFA Inhaler (Combivent Respimat P&T Subs) INH SCH ×4 (07:13→19:32)
[2022-07-20 07:20] LABS: BUN Creatinine Ratio 11.1 (10-20); Calcium 7.7 mg/dl (8.5-10.1); Creatinine Clr Calc Pharmacy 49.9 ml/min; Est GFR (African American) 61.1 ml/min; Est GFR (Non-African American) 52.7 ml/min; Magnesium 1.6 mg/dl (1.7-2.4); Potassium 3.1 mmol/L (3.5-5.1)
[2022-07-20] MEDS: INSULIN ASPART PER UNIT SC SCH ×4 (08:28→21:41)
[2022-07-20] MEDS: BRINZOLAMIDE (AZOPT) OPS 10 ML BTL OPB SCH ×2 (08:44→21:44)
[2022-07-20] MEDS: PANTOprazole 40 MG TAB PO SCH ×2 (08:44→21:49)
[2022-07-20] MEDS: HYDROCODONE/ACETAMOPHEN 5/325MG TAB PO PRN ×3 (08:44→21:43)
[2022-07-20] MEDS: POTASSIUM CHLORIDE CRTAB 20 MEQ TABCR PO SCH ×2 (08:44→21:47)
[2022-07-20] MEDS: SERTRALINE HCL 50 MG TABLET PO SCH (08:45)
[2022-07-20] MEDS: METOPROLOL SUCC 25MG EXT REL TAB PO SCH ×2 (08:45→21:49)
[2022-07-20] MEDS: lisinopril 2.5 MG TAB PO SCH (08:45)
[2022-07-20] MEDS: FUROSEMIDE 40 MG TAB PO SCH (08:46)
[2022-07-20] MEDS: CHOLECALCIFEROL 1,000 UNITS 25 MCG TAB PO SCH (08:47)
[2022-07-20] MEDS: ADVANCED PROBIOTIC 1250 MG CAPSULE PO SCH (08:47)
[2022-07-20] MEDS: FERROUS SULFATE 325 MG TAB PO SCH (08:48)
[2022-07-20] MEDS: DICYCLOMINE HCL 20 MG TAB PO SCH (08:48)
[2022-07-20] MEDS: methIMAzole 5 MG TABLET PO SCH (08:48)
[2022-07-20] MEDS: UMECLIDINIUM BROMIDE 62.5MCG/BLISTER 7 PUFFS/INHALER INH SCH (08:48)
[2022-07-20] MEDS: MULTIVITAMIN TAB PO SCH (08:48)
[2022-07-20] MEDS: PROMETHAZINE HCL 12.5 MG in SODIUM CHLORIDE 0.9% 50 ML IV PRN ×2 (09:27→20:19)
[2022-07-20] MEDS ORDERED: POTASSIUM CHLORIDE CRTAB 20 MEQ TABCR PO ONE (09:30)
[2022-07-20] MEDS ORDERED: MAGNESIUM SULFATE / D5W 1 GM/100 ML BAG IV ONE (09:31)
[2022-07-20] MEDS: FUROSEMIDE 20 MG TAB PO SCH (16:01)
--- NOTE | 2022-07-20 16:04 | Hospitalist Progress Note ---
Date of Service July 20, 2022 Assessment & Plan (1) Diverticulitis large intestine: (2) Abdominal pain, LLQ: (3) Colovesical fistula: (4) Chronic HFrEF (heart failure with reduced ejection fraction): (5) Chronic respiratory failure with hypoxia and hypercapnia: (6) Diabetes mellitus, type 2: (7) Chronic atrial fibrillation: Plan Patient is an 81 yr female with H/O Chronic hypoxemic respiratory failure on 2 L of oxygen during day and 4 L at night, COPD with asthma overlap, chronic HFrEF, PAF status post watchman device, CKD stage III, HTN, HLD, T2DM, gastroparesis, history of ischemic colitis, history of diverticulitis, known colovesicular fistula who presents to ED secondary to left lower quadrant pain x2 to 3 days as well as hematochezia x1 day. Acute Sigmoid Diverticulitis, recurrent with small non drainable abscesses Colovesicular Fistula Presented with LLQ Pain/Hematochezia --CT ABD:Acute sigmoid diverticulitis with several small gas and fluid containing collections within the sigmoid mesocolon compatible with contained perforations/small abscesses. These findings are similar to the 06/04/2022 study. No drainable fluid collection identified. Probable colovesicular fistula with a large amount of air again noted within the urinary bladder lume -- Blood cultures negative to date Received gentle IV fluids Continue IV Zosyn Pain control Appreciate surgery, ID input ID recommended Zosyn to be continued for 4 weeks. Will need weekly CBC, CMP. Patient would also require repeat CT in 2 to 3 weeks upon discharge. No plan for any surgical intervention currently as per surgery Monitor CBC and transfuse PRBCs as needed Tolerating low fiber diet Continue current antibiotics Hypokalemia Hypomagnesemia Replete electrolytes as needed Monitor Chronic HFref Nonobstructive CAD Last echocardiogram 02/2021 revealed EF of 40 to 45% Mild troponin elevation ? Chronic daily weights, strict I and O continue ASA, statin, metoprolol monitor volume status closely Lisinopril, Lasix, Aldactone held today due to relatively low blood pressure Monitor BP Chronic hypoxic Respiratory failure with hypoxia Chronic oxygen dependence:on 2L of O2 during day and 4L at HS COPD JORDAN continue home inhalers No signs of acute exacerbation DM II Well controlled, a1c 6.8 06/07/22 Continue NovoLog per protocol hold oral Meds Chronic Atrial Fibrillation continue metoprolol Not on OAC hx of watchman procedure in 11/2019 Hyperthyroidism continue methimazole Chronic Anemia baseline hgb 9 monitor cbc follows hematology Recent anemia panel from 07/08 was iron 10, TIBC 162, Tsat 6%, Ferritin 214, B12 and FA WNL Hemoglobin drop likely secondary to IV fluids Hb 8.5 today Endometrial thickening Incidental finding on CT Follow-up with OBGYN as outpatient DVT Px: SCDS due to hematochezia Code Status FULL CODE Admission and Anticipated Discharge Date Admission Date: July 17, 2022 Subjective Patient is seen and examined at bedside States having nausea associated with abdominal discomfort which is about the same as yesterday Blood pressure relatively low today Denies any chest pain, dyspnea, dizziness Tolerating low fiber diet Review of Systems Review of Systems: All systems reviewed & are unremarkable except as noted in Subjective Physical Exam Physical Exam: Physical Exam: Vitals signs as noted above General Appearance:Obese, no apparent distress Head: normocephalic, Atraumatic Eyes: normal inspection, EOMI Neck: supple, Trachea midline Respiratory/Chest: Decreased breath sounds, CTA, No accessory muscle use Cardiovascular: Irregularly irregular, No murmur Abdomen/GI:Soft, LLQ mild tender, Bowel sounds present Extremities/Musculoskeletal:normal inspection, 1+ B/L LE edema Neurologic/Psych:AAOX3, grossly no focal neurological deficits Skin: normal color, warm Results & Data Results & Data ([facility]) Vital Signs (Past 12 Hours) Vital Signs Temp Pulse Pulse Pulse Resp BP BP 07/20/22 15:52 36.9 C 91 H 18 92/56 L 07/20/22 15:12 85 07/20/22 14:48 07/20/22 14:29 89 18 07/20/22 11:24 89 07/20/22 11:23 36.9 C 86 19 108/78 07/20/22 11:04 101 H 18 07/20/22 08:45 37.0 C 94 H 18 100/68 90/69 L 07/20/22 07:15 117 H 18 07/20/22 06:54 36.7 C 88 18 101/53 L Pulse Ox O2 Del Method O2 Flow Rate 07/20/22 15:52 92 Nasal Cannula 2 07/20/22 15:12 07/20/22 14:48 Nasal Cannula 2 07/20/22 14:29 95 Nasal Cannula 2 07/20/22 11:24 07/20/22 11:23 98 Nasal Cannula 2 07/20/22 11:04 97 Nasal Cannula 3 07/20/22 08:45 94 Nasal Cannula 3 07/20/22 07:15 99 Nasal Cannula 3 07/20/22 06:54 99 Nasal Cannula 4 Laboratory Results Short CBC 07/20/22 Range/Units 06:05 Hgb 8.5 L (12.0-16.0) g/dl Hct 26.4 L (34.1-44.9) % BMP 07/20/22 06:05 Sodium 138 Potassium 3.1 L Chloride 100 Carbon Dioxide 34 H BUN 11 Creatinine 0.99 Glucose 144 H Calcium 7.7 L (1) Diverticulitis large intestine Diverticulitis bleeding: with bleeding Diverticulitis complication: with perforation and abscess Qualified Code(s): K57.21 - Diverticulitis of large intestine with perforation and abscess with bleeding
[2022-07-20] MEDS: BIMATOPROST 0.01% OP SOLN 2.5 ML BTL OPB SCH (21:45)
[2022-07-20] MEDS: ATORVASTATIN 40 MG TAB PO SCH (21:45)
[2022-07-20] MEDS: MAGNESIUM CHLORIDE W/CALCIUM 64MG DELAYED REL TAB PO SCH (21:47)
[2022-07-21] MEDS: PIPERACILLIN/TAZOBACTAM 4.5 GM in DEXTROSE 5% 100 ML IV SCH ×3 (04:14→22:08)
[2022-07-21 06:20] LABS: Hematocrit (blood only) 29.5 % (34.1-44.9); Hemoglobin 9.3 g/dl (12.0-16.0)
[2022-07-21 06:48] LABS: BUN Creatinine Ratio 15.4 (10-20); Calcium 8.7 mg/dl (8.5-10.1); Creatinine Clr Calc Pharmacy 63.4 ml/min; Est GFR (African American) 81.5 ml/min; Est GFR (Non-African American) 70.3 ml/min; Magnesium 1.7 mg/dl (1.7-2.4); Potassium 3.7 mmol/L (3.5-5.1)
[2022-07-21] MEDS: Albuterol HFA 8 GM Inhaler (Combivent Respimat P&T Subs) INH SCH ×4 (07:20→19:19)
[2022-07-21] MEDS: Ipratropium HFA Inhaler (Combivent Respimat P&T Subs) INH SCH ×4 (07:20→19:19)
[2022-07-21] MEDS: UMECLIDINIUM BROMIDE 62.5MCG/BLISTER 7 PUFFS/INHALER INH SCH (07:40)
[2022-07-21] MEDS: HYDROCODONE/ACETAMOPHEN 5/325MG TAB PO PRN ×3 (08:12→21:59)
[2022-07-21] MEDS: PROMETHAZINE HCL 12.5 MG in SODIUM CHLORIDE 0.9% 50 ML IV PRN ×2 (08:12→22:39)
[2022-07-21] MEDS: FERROUS SULFATE 325 MG TAB PO SCH (08:16)
[2022-07-21] MEDS: SERTRALINE HCL 50 MG TABLET PO SCH (08:16)
[2022-07-21] MEDS: MAGNESIUM CHLORIDE W/CALCIUM 64MG DELAYED REL TAB PO SCH ×2 (08:16→22:01)
[2022-07-21] MEDS: ADVANCED PROBIOTIC 1250 MG CAPSULE PO SCH (08:16)
[2022-07-21] MEDS: BRINZOLAMIDE (AZOPT) OPS 10 ML BTL OPB SCH ×2 (08:16→22:04)
[2022-07-21] MEDS: DICYCLOMINE HCL 20 MG TAB PO SCH (08:16)
[2022-07-21] MEDS: CHOLECALCIFEROL 1,000 UNITS 25 MCG TAB PO SCH (08:16)
[2022-07-21] MEDS: MULTIVITAMIN TAB PO SCH (08:17)
[2022-07-21] MEDS: POTASSIUM CHLORIDE CRTAB 20 MEQ TABCR PO SCH ×2 (08:17→22:03)
[2022-07-21] MEDS: METOPROLOL SUCC 25MG EXT REL TAB PO SCH ×2 (08:18→22:19)
[2022-07-21] MEDS: PANTOprazole 40 MG TAB PO SCH ×2 (08:18→22:02)
[2022-07-21] MEDS: methIMAzole 5 MG TABLET PO SCH (08:18)
[2022-07-21] MEDS: INSULIN ASPART PER UNIT SC SCH ×4 (09:01→21:57)
[2022-07-21] MEDS: FUROSEMIDE 20 MG TAB PO SCH ×2 (12:15→17:09)
--- NOTE | 2022-07-21 15:29 | Hospitalist Progress Note ---
Date of Service July 21, 2022 Assessment & Plan (1) Diverticulitis large intestine: (2) Abdominal pain, LLQ: (3) Colovesical fistula: (4) Chronic HFrEF (heart failure with reduced ejection fraction): (5) Chronic respiratory failure with hypoxia and hypercapnia: (6) Diabetes mellitus, type 2: (7) Chronic atrial fibrillation: Plan Patient is an 81 yr female with H/O Chronic hypoxemic respiratory failure on 2 L of oxygen during day and 4 L at night, COPD with asthma overlap, chronic HFrEF, PAF status post watchman device, CKD stage III, HTN, HLD, T2DM, gastroparesis, history of ischemic colitis, history of diverticulitis, known colovesicular fistula who presents to ED secondary to left lower quadrant pain x2 to 3 days as well as hematochezia x1 day. Acute Sigmoid Diverticulitis, recurrent with small non drainable abscesses Colovesicular Fistula Presented with LLQ Pain/Hematochezia --CT ABD:Acute sigmoid diverticulitis with several small gas and fluid containing collections within the sigmoid mesocolon compatible with contained perforations/small abscesses. These findings are similar to the 06/04/2022 study. No drainable fluid collection identified. Probable colovesicular fistula with a large amount of air again noted within the urinary bladder lume -- Blood cultures negative to date Received gentle IV fluids Continue IV Zosyn Pain control Appreciate surgery, ID input ID recommended Zosyn to be continued for 4 weeks. Will need weekly CBC, CMP. Patient would also require repeat CT in 2 to 3 weeks upon discharge. No plan for any surgical intervention currently as per surgery Monitor CBC and transfuse PRBCs as needed Tolerating low fiber diet Plan for PICC line placement today Hypokalemia Hypomagnesemia Replete electrolytes as needed Monitor Chronic HFref Nonobstructive CAD Last echocardiogram 02/2021 revealed EF of 40 to 45% Mild troponin elevation ? Chronic daily weights, strict I and O continue ASA, statin, metoprolol Lisinopril, Lasix, Aldactone held today due to relatively low blood pressure monitor volume status Chronic hypoxic Respiratory failure with hypoxia Chronic oxygen dependence:on 2L of O2 during day and 4L at HS COPD JORDAN continue home inhalers No signs of acute exacerbation DM II Well controlled, a1c 6.8 06/07/22 Continue NovoLog per protocol hold oral Meds Chronic Atrial Fibrillation continue metoprolol Not on oral anticoagulation due to H/O watchman procedure in 11/2019 Hyperthyroidism continue methimazole Chronic Anemia baseline hgb 9 monitor cbc follows hematology Recent anemia panel from 07/08 was iron 10, TIBC 162, Tsat 6%, Ferritin 214, B12 and FA WNL Hemoglobin drop likely secondary to IV fluids Hb 9.3 today Endometrial thickening Incidental finding on CT Follow-up with OBGYN as outpatient DVT Px: SCDS due to hematochezia Code Status FULL CODE Admission and Anticipated Discharge Date Admission Date: July 17, 2022 Subjective Patient is seen and examined at bedside Reports intermittent nausea and abdominal discomfort Diarrhea, blood in stools resolved No other complaints BP remains on lower side Denies any chest pain, dyspnea, dizziness Review of Systems Review of Systems: All systems reviewed & are unremarkable except as noted in Subjective Physical Exam Physical Exam: Physical Exam: Vitals signs as noted above General Appearance:Obese, no apparent distress Head: normocephalic, Atraumatic Eyes: normal inspection, EOMI Neck: supple, Trachea midline Respiratory/Chest: Decreased breath sounds, CTA, No accessory muscle use Cardiovascular: Irregularly irregular, No murmur Abdomen/GI:Soft, LLQ mild tender, Bowel sounds present Extremities/Musculoskeletal:normal inspection, 1+ B/L LE edema Neurologic/Psych:AAOX3, grossly no focal neurological deficits Skin: normal color, warm Results & Data Results & Data ([facility]) Vital Signs (Past 12 Hours) Vital Signs Temp Pulse Pulse Pulse Resp BP Pulse Ox 07/21/22 14:35 99 H 19 96 07/21/22 11:33 36.9 C 105 H 20 90/59 L 96 07/21/22 10:58 92 H 16 94 07/21/22 10:47 103 H 07/21/22 09:03 102/65 07/21/22 07:20 106 H 23 100 07/21/22 06:38 36.7 C 80 20 96/66 L 93 07/21/22 04:30 36.6 C 65 18 114/69 94 O2 Del Method O2 Flow Rate 07/21/22 14:35 Nasal Cannula 2 07/21/22 11:33 Nasal Cannula 2 07/21/22 10:58 Nasal Cannula 2 07/21/22 10:47 07/21/22 09:03 07/21/22 07:20 Nasal Cannula 2 07/21/22 06:38 4 07/21/22 04:30 Room Air Laboratory Results Short CBC 07/21/22 Range/Units 06:06 Hgb 9.3 L (12.0-16.0) g/dl Hct 29.5 L (34.1-44.9) % BMP 07/21/22 06:06 Sodium 131 L Potassium 3.7 Chloride 96 L Carbon Dioxide 33 H BUN 12 Creatinine 0.78 Glucose 144 H Calcium 8.7 (1) Diverticulitis large intestine Diverticulitis bleeding: with bleeding Diverticulitis complication: with perforation and abscess Qualified Code(s): K57.21 - Diverticulitis of large intestine with perforation and abscess with bleeding
[2022-07-21] MEDS: ATORVASTATIN 40 MG TAB PO SCH (22:01)
[2022-07-21] MEDS: BIMATOPROST 0.01% OP SOLN 2.5 ML BTL OPB SCH (22:04)
[2022-07-22] MEDS: PIPERACILLIN/TAZOBACTAM 4.5 GM in DEXTROSE 5% 100 ML IV SCH ×3 (04:34→22:18)
[2022-07-22] MEDS: HYDROCODONE/ACETAMOPHEN 5/325MG TAB PO PRN ×2 (04:51→16:39)
[2022-07-22] MEDS: Ipratropium HFA Inhaler (Combivent Respimat P&T Subs) INH SCH ×4 (06:55→20:15)
[2022-07-22] MEDS: Albuterol HFA 8 GM Inhaler (Combivent Respimat P&T Subs) INH SCH ×4 (06:56→20:16)
[2022-07-22 07:34] LABS: Hematocrit (blood only) 25.4 % (34.1-44.9); Hemoglobin 7.9 g/dl (12.0-16.0); Mean Corpuscular Hemoglobin 27.6 pg (25.0-34.0); Mean Corpuscular Hgb Conc 31.1 g/dL (32.0-36.0); Mean Corpuscular Volume 88.8 fL (80.0-100.0); Mean Platelet Volume 9.5 fL (9.4-12.3); Platelet Count 417 K/uL (130-400); RDW Standard Deviation 55.1 fL (36.4-46.3); Red Blood Count 2.86 M/uL (3.93-5.22); White Blood Count 9.24 K/ul (4.8-10.8)
[2022-07-22 08:03] LABS: BUN Creatinine Ratio 18.1 (10-20); Calcium 8.5 mg/dl (8.5-10.1); Creatinine Clr Calc Pharmacy 68.1 ml/min; Est GFR (African American) 89.8 ml/min; Est GFR (Non-African American) 77.4 ml/min; Magnesium 1.6 mg/dl (1.7-2.4); Potassium 4.1 mmol/L (3.5-5.1)
[2022-07-22] MEDS: INSULIN ASPART PER UNIT SC SCH ×4 (08:54→22:02)
[2022-07-22] MEDS: PANTOprazole 40 MG TAB PO SCH ×2 (08:58→22:05)
[2022-07-22] MEDS: FERROUS SULFATE 325 MG TAB PO SCH (08:58)
[2022-07-22] MEDS: MAGNESIUM CHLORIDE W/CALCIUM 64MG DELAYED REL TAB PO SCH ×2 (08:58→22:05)
[2022-07-22] MEDS: DICYCLOMINE HCL 20 MG TAB PO SCH (08:58)
[2022-07-22] MEDS: METOPROLOL SUCC 25MG EXT REL TAB PO SCH ×3 (08:58→22:04)
[2022-07-22] MEDS: ASPIRIN 81 MG ECTAB PO SCH (08:58)
[2022-07-22] MEDS: FUROSEMIDE 20 MG TAB PO SCH ×2 (08:58→16:41)
[2022-07-22] MEDS: ADVANCED PROBIOTIC 1250 MG CAPSULE PO SCH (08:59)
[2022-07-22] MEDS: BRINZOLAMIDE (AZOPT) OPS 10 ML BTL OPB SCH ×2 (09:01→22:04)
[2022-07-22] MEDS: SERTRALINE HCL 50 MG TABLET PO SCH (09:02)
[2022-07-22] MEDS: MULTIVITAMIN TAB PO SCH (09:03)
[2022-07-22] MEDS: methIMAzole 5 MG TABLET PO SCH (09:03)
[2022-07-22] MEDS: CHOLECALCIFEROL 1,000 UNITS 25 MCG TAB PO SCH (09:03)
[2022-07-22] MEDS: POTASSIUM CHLORIDE CRTAB 20 MEQ TABCR PO SCH (09:03)
[2022-07-22] MEDS: UMECLIDINIUM BROMIDE 62.5MCG/BLISTER 7 PUFFS/INHALER INH SCH (09:04)
[2022-07-22] MEDS ORDERED: SODIUM CHLORIDE 0.9% 250 ML IV PRN ×2 (09:15→10:33)
[2022-07-22] MEDS: PROMETHAZINE HCL 12.5 MG in SODIUM CHLORIDE 0.9% 50 ML IV PRN (09:54)
[2022-07-22] MEDS: MoRPHine SULFATE 2 MG/ML CARP IV PRN (10:41)
--- NOTE | 2022-07-22 13:01 | CT Scan Report ---
CT OF THE ABDOMEN AND PELVIS WITHOUT CONTRAST CLINICAL HISTORY: Persistent left lower quadrant abdominal pain. COMPARISON STUDY: CT of the abdomen and pelvis July 17, 2022. TECHNIQUE: Axial images of the abdomen and pelvis were obtained without IV contrast. Images were revi ewed in the axial, sagittal, and coronal planes. Automated exposure control was utilized for the jamari dy. A dose lowering technique was utilized adhering to the principles of ALARA. FINDINGS: Lung bases are unremarkable. Cardiomegaly is noted. Unenhanced images of the liver, spleen, right adrenal gland and pancreas are unremarkable. A 1.9 cm low-attenuation left adrenal nodule is u nchanged since CT of July 07, 2010. This represents an adenoma. Low-attenuation right renal lesi ons are suboptimally assessed on this unenhanced exam but likely reflect cysts. There is no hydroneph rosis. There is no biliary or pancreatic ductal dilatation. A moderate amount stool within the colon is noted. There is extensive colonic diverticulosis. Wall thickening of the proximal sigmoid colon is again noted with adjacent inflammation consistent with acute diverticulitis. A 6 x 3.7 cm pericoloni c fluid collection on axial image 314 of 436 has increased in size since CT of July 17, 2022. This favors a diverticular abscess. There is possible involvement of the left adnexa. The left ovary is ob scured on this examination. Gas within the bladder is noted. Probable colovesical fistula is noted on axial image 309 of 436. Additional smaller ill-defined pericolonic gas and fluid containing collecti ons are present. These collections are similar to prior CT. Inflammation adjacent to the bladder is n oted. IMPRESSION: 1. Acute sigmoid diverticulitis. Increase in size of a 6 x 3.7 cm pericolonic fluid collection sugges tive of a diverticular abscess. Additional smaller pericolonic abscesses are similar to prior CT. 2. Colovesicular fistula, as described above. Large amount of gas within the bladder with adjacent st randing. 3. Obscured left ovary. This inflammatory process likely involves the left adnexa. 4. No bowel obstruction. ACT 112: Negative or not required by law. Electronically signed by: Shadi Ravi M.D. 07/22/2022 1:00 PM
[2022-07-22] MEDS ORDERED: PIPERACILLIN/TAZOBACTAM 4.5 GM in DEXTROSE 5% 100 ML IV SCH (14:00)
--- NOTE | 2022-07-22 17:08 | Hospitalist Progress Note ---
Date of Service July 22, 2022 Assessment & Plan (1) Diverticulitis large intestine: (2) Abdominal pain, LLQ: (3) Colovesical fistula: (4) Chronic HFrEF (heart failure with reduced ejection fraction): (5) Chronic respiratory failure with hypoxia and hypercapnia: (6) Diabetes mellitus, type 2: (7) Chronic atrial fibrillation: Plan Patient is an 81 yr female with H/O Chronic hypoxemic respiratory failure on 2 L of oxygen during day and 4 L at night, COPD with asthma overlap, chronic HFrEF, PAF status post watchman device, CKD stage III, HTN, HLD, T2DM, gastroparesis, history of ischemic colitis, history of diverticulitis, known colovesicular fistula who presents to ED secondary to left lower quadrant pain x2 to 3 days as well as hematochezia x1 day. Acute Sigmoid Diverticulitis, recurrent with small non drainable abscesses Colovesicular Fistula Presented with LLQ Pain/Hematochezia --CT ABD:Acute sigmoid diverticulitis with several small gas and fluid containing collections within the sigmoid mesocolon compatible with contained perforations/small abscesses. These findings are similar to the 06/04/2022 study. No drainable fluid collection identified. Probable colovesicular fistula with a large amount of air again noted within the urinary bladder lumen -- Blood cultures negative to date Received gentle IV fluids Continue IV Zosyn Pain control Appreciate surgery, ID input ID recommended Zosyn to be continued for 4 weeks. Will need weekly CBC, CMP. Patient would also require repeat CT in 2 to 3 weeks upon discharge. No plan for any surgical intervention currently as per surgery Monitor CBC and transfuse PRBCs as needed Tolerating low fiber diet PICC line placement requested Repeat CT abdomen showed increasing abdominal abscess Will discuss with IR to see if it can be drained Hypokalemia Hypomagnesemia Replete electrolytes as needed Monitor Chronic HFref Nonobstructive CAD Last echocardiogram 02/2021 revealed EF of 40 to 45% Mild troponin elevation ? Chronic daily weights, strict I and O continue ASA, statin, metoprolol Lisinopril, Lasix, Aldactone held today due to relatively low blood pressure monitor volume status Chronic hypoxic Respiratory failure with hypoxia Chronic oxygen dependence:on 2L of O2 during day and 4L at HS COPD JORDAN continue home inhalers No signs of acute exacerbation DM II Well controlled, a1c 6.8 06/07/22 Continue NovoLog per protocol hold oral Meds Chronic Atrial Fibrillation continue metoprolol Not on oral anticoagulation due to H/O watchman procedure in 11/2019 Hyperthyroidism continue methimazole Chronic Anemia baseline hgb 9 monitor cbc follows hematology Recent anemia panel from 07/08 was iron 10, TIBC 162, Tsat 6%, Ferritin 214, B12 and FA WNL Hemoglobin drop likely secondary to IV fluids Hb 7.9 today S/P 1 unit PRBCs Endometrial thickening Incidental finding on CT Follow-up with OBGYN as outpatient DVT Px: SCDS due to hematochezia Code Status FULL CODE Admission and Anticipated Discharge Date Admission Date: July 17, 2022 Subjective Patient is seen and examined at bedside Persistent nausea, left lower quadrant abdominal discomfort States feeling tired Discussed with surgery today No diarrhea or blood in stools Denies any chest pain, dyspnea, dizziness Or other complaints Review of Systems Review of Systems: All systems reviewed & are unremarkable except as noted in Subjective Physical Exam Physical Exam: Physical Exam: Vitals signs as noted above General Appearance:Obese, no apparent distress Head: normocephalic, Atraumatic Eyes: normal inspection, EOMI Neck: supple, Trachea midline Respiratory/Chest: Decreased breath sounds, CTA, No accessory muscle use Cardiovascular: Irregularly irregular, No murmur Abdomen/GI:Soft, LLQ mild tender, Bowel sounds present Extremities/Musculoskeletal:normal inspection, 1+ B/L LE edema Neurologic/Psych:AAOX3, grossly no focal neurological deficits Skin: normal color, warm Results & Data Results & Data ([facility]) Vital Signs (Past 12 Hours) Vital Signs Temp Pulse Pulse Pulse Resp BP BP 07/22/22 16:14 87 07/22/22 16:09 07/22/22 15:19 37.5 C 103 H 20 112/75 07/22/22 14:48 107 H 18 07/22/22 13:59 37.3 C 102 H 16 105/68 07/22/22 12:59 37.1 C 108 H 14 118/64 07/22/22 12:29 37.1 C 115 H 14 125/63 07/22/22 12:15 37.1 C 110 H 14 112/64 07/22/22 11:54 37 C 109 H 18 111/74 07/22/22 10:56 101 H 19 07/22/22 07:20 36.7 C 96 H 20 90/52 L 07/22/22 06:56 96 H 18 Pulse Ox O2 Del Method O2 Flow Rate 07/22/22 16:14 07/22/22 16:09 Nasal Cannula 2 07/22/22 15:19 96 Nasal Cannula 2 07/22/22 14:48 97 Nasal Cannula 2 07/22/22 13:59 96 07/22/22 12:59 97 07/22/22 12:29 92 2 07/22/22 12:15 94 2 07/22/22 11:54 07/22/22 10:56 97 Nasal Cannula 2 07/22/22 07:20 99 Nasal Cannula 2 07/22/22 06:56 99 Nasal Cannula 2 Laboratory Results Short CBC 07/22/22 Range/Units 06:50 WBC 9.24 (4.8-10.8) K/ul Hgb 7.9 L (12.0-16.0) g/dl Hct 25.4 L (34.1-44.9) % Plt Count 417 H (130-400) K/uL BMP 07/21/22 07/22/22 06:06 06:50 Sodium 139 139 Potassium 4.1 Chloride 103 Carbon Dioxide 30 BUN 13 Creatinine 0.72 Glucose 131 H Calcium 8.5 (1) Diverticulitis large intestine Diverticulitis bleeding: with bleeding Diverticulitis complication: with perforation and abscess Qualified Code(s): K57.21 - Diverticulitis of large intestine with perforation and abscess with bleeding
[2022-07-22] MEDS: MONTELUKAST SODIUM 10 MG TABLET PO SCH (17:26)
[2022-07-22] MEDS: POLYETHYLENE (MIRALAX) 17 GM PACK PO PRN (18:19)
--- NOTE | 2022-07-22 18:41 | Communication Note ---
Date of Service: July 22, [address]Rabi Resendiz and Triage Office at [facility]. Once Images reviewed by IR, determination will be made if it could drained or not accessible. Plan to monitor here today given patient is stable currently. IR plans to call back tomorrow with final recommendations.
[2022-07-22] MEDS: BIMATOPROST 0.01% OP SOLN 2.5 ML BTL OPB SCH (22:02)
[2022-07-22] MEDS: ATORVASTATIN 40 MG TAB PO SCH (22:04)
[2022-07-22] MEDS: ACETAMINOPHEN 325 MG TAB PO PRN (22:07)
[2022-07-22] MEDS ORDERED: SODIUM CHLORIDE 0.9% 1000ML 1,000 ML IV ONE (22:12)
[2022-07-22] MEDS ORDERED: DIGOXIN 250 MCG in SYRINGE 9 ML IV ONE (22:30)
[2022-07-22] MEDS: MAGNESIUM SULFATE / D5W 1 GM/100 ML BAG IV SCH (23:23)
[2022-07-23] MEDS: HYDROCODONE/ACETAMOPHEN 5/325MG TAB PO PRN ×3 (00:28→18:32)
[2022-07-23] MEDS: MAGNESIUM SULFATE / D5W 1 GM/100 ML BAG IV SCH (01:36)
[2022-07-23] MEDS: PIPERACILLIN/TAZOBACTAM 4.5 GM in DEXTROSE 5% 100 ML IV SCH ×3 (05:22→22:17)
[2022-07-23 06:19] LABS: Hematocrit (blood only) 28.4 % (34.1-44.9); Mean Corpuscular Hemoglobin 27.6 pg (25.0-34.0); Mean Corpuscular Hgb Conc 31.7 g/dL (32.0-36.0); Mean Corpuscular Volume 87.1 fL (80.0-100.0); Mean Platelet Volume 9.4 fL (9.4-12.3); Platelet Count 442 K/uL (130-400); RDW Coefficient of Variation 16.7 % (11.5-14.5); RDW Standard Deviation 53.1 fL (36.4-46.3); Red Blood Count 3.26 M/uL (3.93-5.22); White Blood Count 9.26 K/ul (4.8-10.8)
[2022-07-23 06:45] LABS: BUN Creatinine Ratio 14.6 (10-20); Calcium 8.8 mg/dl (8.5-10.1); Creatinine Clr Calc Pharmacy 60.2 ml/min; Est GFR (African American) 76.7 ml/min; Est GFR (Non-African American) 66.2 ml/min; Magnesium 2.1 mg/dl (1.7-2.4); Potassium 3.8 mmol/L (3.5-5.1)
[2022-07-23] MEDS: Ipratropium HFA Inhaler (Combivent Respimat P&T Subs) INH SCH ×4 (07:09→19:43)
[2022-07-23] MEDS: Albuterol HFA 8 GM Inhaler (Combivent Respimat P&T Subs) INH SCH ×4 (07:10→19:25)
[2022-07-23] MEDS: INSULIN ASPART PER UNIT SC SCH ×4 (08:04→20:20)
[2022-07-23] MEDS: POLYETHYLENE (MIRALAX) 17 GM PACK PO PRN (08:10)
[2022-07-23] MEDS: PANTOprazole 40 MG TAB PO SCH ×2 (08:10→19:46)
[2022-07-23] MEDS: ADVANCED PROBIOTIC 1250 MG CAPSULE PO SCH (08:11)
[2022-07-23] MEDS: MAGNESIUM CHLORIDE W/CALCIUM 64MG DELAYED REL TAB PO SCH ×2 (08:11→19:47)
[2022-07-23] MEDS: DICYCLOMINE HCL 20 MG TAB PO SCH (08:11)
[2022-07-23] MEDS: FUROSEMIDE 20 MG TAB PO SCH (08:11)
[2022-07-23] MEDS: METOPROLOL SUCC 25MG EXT REL TAB PO SCH ×2 (08:11→19:47)
[2022-07-23] MEDS: CHOLECALCIFEROL 1,000 UNITS 25 MCG TAB PO SCH (08:12)
[2022-07-23] MEDS: POTASSIUM CHLORIDE CRTAB 20 MEQ TABCR PO SCH (08:12)
[2022-07-23] MEDS: FERROUS SULFATE 325 MG TAB PO SCH (08:12)
[2022-07-23] MEDS: methIMAzole 5 MG TABLET PO SCH (08:12)
[2022-07-23] MEDS: ASPIRIN 81 MG ECTAB PO SCH (08:13)
[2022-07-23] MEDS: MULTIVITAMIN TAB PO SCH (08:13)
[2022-07-23] MEDS: BRINZOLAMIDE (AZOPT) OPS 10 ML BTL OPB SCH ×2 (08:13→19:48)
[2022-07-23] MEDS: SERTRALINE HCL 50 MG TABLET PO SCH (08:13)
[2022-07-23] MEDS: UMECLIDINIUM BROMIDE 62.5MCG/BLISTER 7 PUFFS/INHALER INH SCH (08:14)
[2022-07-23] MEDS: ONDANSETRON INJ 2 MG/ML 2 ML VIAL IV PRN ×2 (09:31→18:33)
[2022-07-23] MEDS: MONTELUKAST SODIUM 10 MG TABLET PO SCH (16:48)
--- NOTE | 2022-07-23 17:50 | Hospitalist Progress Note ---
Date of Service July 23, 2022 Assessment & Plan (1) Diverticulitis large intestine: (2) Abdominal pain, LLQ: (3) Colovesical fistula: (4) Chronic HFrEF (heart failure with reduced ejection fraction): (5) Chronic respiratory failure with hypoxia and hypercapnia: (6) Diabetes mellitus, type 2: (7) Chronic atrial fibrillation: Plan Patient is an 81 yr female with H/O Chronic hypoxemic respiratory failure on 2 L of oxygen during day and 4 L at night, COPD with asthma overlap, chronic HFrEF, PAF status post watchman device, CKD stage III, HTN, HLD, T2DM, gastroparesis, history of ischemic colitis, history of diverticulitis, known colovesicular fistula who presents to ED secondary to left lower quadrant pain x2 to 3 days as well as hematochezia x1 day. Acute Sigmoid Diverticulitis, recurrent with small non drainable abscesses Colovesicular Fistula Presented with LLQ Pain/Hematochezia --CT ABD:Acute sigmoid diverticulitis with several small gas and fluid containing collections within the sigmoid mesocolon compatible with contained perforations/small abscesses. These findings are similar to the 06/04/2022 study. No drainable fluid collection identified. Probable colovesicular fistula with a large amount of air again noted within the urinary bladder lumen -- Blood cultures negative to date Received gentle IV fluids Continue IV Zosyn Pain control Appreciate surgery, ID input ID recommended Zosyn to be continued for 4 weeks. Will need weekly CBC, CMP. Patient would also require repeat CT in 2 to 3 weeks upon discharge. No plan for any surgical intervention currently as per surgery Monitor CBC and transfuse PRBCs as needed Tolerating low fiber diet PICC line placement requested Repeat CT abdomen showed increasing abdominal abscess Patient accepted at [facility] ([place]) for IR intervention on Plan to discharge on for IR intervention Hypokalemia Hypomagnesemia Replete electrolytes as needed Monitor Chronic HFref Nonobstructive CAD Last echocardiogram 02/2021 revealed EF of 40 to 45% Mild troponin elevation ? Chronic daily weights, strict I and O continue ASA, statin, metoprolol Lisinopril, Lasix, Aldactone held today due to relatively low blood pressure monitor volume status Chronic hypoxic Respiratory failure with hypoxia Chronic oxygen dependence:on 2L of O2 during day and 4L at HS COPD JORDAN continue home inhalers No signs of acute exacerbation DM II Well controlled, a1c 6.8 06/07/22 Continue NovoLog per protocol hold oral Meds Chronic Atrial Fibrillation continue metoprolol Not on oral anticoagulation due to H/O watchman procedure in 11/2019 Hyperthyroidism continue methimazole Chronic Anemia baseline hgb 9 monitor cbc follows hematology Recent anemia panel from 07/08 was iron 10, TIBC 162, Tsat 6%, Ferritin 214, B12 and FA WNL Hemoglobin drop likely secondary to IV fluids Hb 9.o today S/P 1 unit PRBCs Monitor Endometrial thickening Incidental finding on CT Follow-up with OBGYN as outpatient DVT Px: SCDS due to hematochezia Code Status FULL CODE Admission and Anticipated Discharge Date Admission Date: July 17, 2022 Subjective Patient is seen and examined at bedside Continues to have nausea, abdominal pain No new complaints Discussed with tertiary care facility today Denies any chest pain, dyspnea, dizziness Review of Systems Review of Systems: All systems reviewed & are unremarkable except as noted in Subjective Physical Exam Physical Exam: Physical Exam: Vitals signs as noted above General Appearance:Obese, no apparent distress Head: normocephalic, Atraumatic Eyes: normal inspection, EOMI Neck: supple, Trachea midline Respiratory/Chest: Decreased breath sounds, CTA, No accessory muscle use Cardiovascular: Irregularly irregular, No murmur Abdomen/GI:Soft, LLQ mild tender, Bowel sounds present Extremities/Musculoskeletal:normal inspection, 1+ B/L LE edema Neurologic/Psych:AAOX3, grossly no focal neurological deficits Skin: normal color, warm Results & Data Results & Data ([facility]) Vital Signs (Past 12 Hours) Vital Signs Temp Pulse Pulse Resp BP BP Pulse Ox 07/23/22 16:27 89 07/23/22 15:27 36.6 C 72 18 135/83 95 07/23/22 07:00 90 07/23/22 13:10 07/23/22 10:44 89 18 98 07/23/22 11:27 36.8 C 88 16 98/54 L 97 07/23/22 07:10 88 18 99 07/23/22 06:48 36.6 C 106 H 20 137/88 95 O2 Del Method O2 Flow Rate 07/23/22 16:27 07/23/22 15:27 Nasal Cannula 2 07/23/22 07:00 07/23/22 13:10 Nasal Cannula 2 07/23/22 10:44 Nasal Cannula 4 07/23/22 11:27 Nasal Cannula 2 07/23/22 07:10 Nasal Cannula 4 07/23/22 06:48 Nasal Cannula 2 Laboratory Results Short CBC 07/23/22 Range/Units 05:36 WBC 9.26 (4.8-10.8) K/ul Hgb 9.0 L (12.0-16.0) g/dl Hct 28.4 L (34.1-44.9) % Plt Count 442 H (130-400) K/uL BMP 07/23/22 05:36 Sodium 139 Potassium 3.8 Chloride 102 Carbon Dioxide 32 BUN 12 Creatinine 0.82 Glucose 123 H Calcium 8.8 (1) Diverticulitis large intestine Diverticulitis bleeding: with bleeding Diverticulitis complication: with perforation and abscess Qualified Code(s): K57.21 - Diverticulitis of large intestine with perforation and abscess with bleeding
[2022-07-23] MEDS: ATORVASTATIN 40 MG TAB PO SCH (19:47)
[2022-07-23] MEDS: BIMATOPROST 0.01% OP SOLN 2.5 ML BTL OPB SCH (19:48)
[2022-07-23] MEDS: MoRPHine SULFATE 2 MG/ML CARP IV PRN (20:19)
[2022-07-24] MEDS: HYDROCODONE/ACETAMOPHEN 5/325MG TAB PO PRN ×4 (00:28→20:10)
[2022-07-24] MEDS: MoRPHine SULFATE 2 MG/ML CARP IV PRN ×3 (02:33→23:45)
[2022-07-24 06:32] LABS: Hematocrit (blood only) 30.6 % (34.1-44.9); Hemoglobin 9.5 g/dl (12.0-16.0)
[2022-07-24] MEDS: PIPERACILLIN/TAZOBACTAM 4.5 GM in DEXTROSE 5% 100 ML IV SCH ×3 (06:34→19:59)
[2022-07-24 06:56] LABS: Calcium 8.8 mg/dl (8.5-10.1); Creatinine Clr Calc Pharmacy 65.4 ml/min; Est GFR (African American) 85.4 ml/min; Est GFR (Non-African American) 73.7 ml/min; Magnesium 1.9 mg/dl (1.7-2.4); Potassium 3.9 mmol/L (3.5-5.1)
[2022-07-24] MEDS: Albuterol HFA 8 GM Inhaler (Combivent Respimat P&T Subs) INH SCH ×4 (07:07→19:15)
[2022-07-24] MEDS: Ipratropium HFA Inhaler (Combivent Respimat P&T Subs) INH SCH ×4 (07:08→19:16)
[2022-07-24] MEDS: POTASSIUM CHLORIDE CRTAB 20 MEQ TABCR PO SCH (07:47)
[2022-07-24] MEDS: PANTOprazole 40 MG TAB PO SCH ×2 (07:47→19:51)
[2022-07-24] MEDS: MAGNESIUM CHLORIDE W/CALCIUM 64MG DELAYED REL TAB PO SCH ×2 (07:47→19:53)
[2022-07-24] MEDS: ASPIRIN 81 MG ECTAB PO SCH (07:47)
[2022-07-24] MEDS: UMECLIDINIUM BROMIDE 62.5MCG/BLISTER 7 PUFFS/INHALER INH SCH (07:47)
[2022-07-24] MEDS: DICYCLOMINE HCL 20 MG TAB PO SCH (07:48)
[2022-07-24] MEDS: METOPROLOL SUCC 25MG EXT REL TAB PO SCH ×2 (07:48→19:51)
[2022-07-24] MEDS: SERTRALINE HCL 50 MG TABLET PO SCH (07:48)
[2022-07-24] MEDS: CHOLECALCIFEROL 1,000 UNITS 25 MCG TAB PO SCH (07:48)
[2022-07-24] MEDS: ADVANCED PROBIOTIC 1250 MG CAPSULE PO SCH (07:48)
[2022-07-24] MEDS: BRINZOLAMIDE (AZOPT) OPS 10 ML BTL OPB SCH ×2 (07:48→19:49)
[2022-07-24] MEDS: FERROUS SULFATE 325 MG TAB PO SCH (07:49)
[2022-07-24] MEDS: MULTIVITAMIN TAB PO SCH (07:49)
[2022-07-24] MEDS: methIMAzole 5 MG TABLET PO SCH (07:49)
[2022-07-24] MEDS: ONDANSETRON INJ 2 MG/ML 2 ML VIAL IV PRN ×2 (08:33→17:43)
[2022-07-24] MEDS: ACETAMINOPHEN 325 MG TAB PO PRN ×2 (08:37→22:06)
[2022-07-24] MEDS: INSULIN ASPART PER UNIT SC SCH ×4 (08:38→19:53)
--- NOTE | 2022-07-24 14:23 | Hospitalist Progress Note ---
Date of Service July 24, 2022 Assessment & Plan (1) Diverticulitis large intestine: (2) Abdominal pain, LLQ: (3) Colovesical fistula: (4) Chronic HFrEF (heart failure with reduced ejection fraction): (5) Chronic respiratory failure with hypoxia and hypercapnia: (6) Diabetes mellitus, type 2: (7) Chronic atrial fibrillation: Plan Patient is an 81 yr female with H/O Chronic hypoxemic respiratory failure on 2 L of oxygen during day and 4 L at night, COPD with asthma overlap, chronic HFrEF, PAF status post watchman device, CKD stage III, HTN, HLD, T2DM, gastroparesis, history of ischemic colitis, history of diverticulitis, known colovesicular fistula who presents to ED secondary to left lower quadrant pain x2 to 3 days as well as hematochezia x1 day. Acute Sigmoid Diverticulitis, recurrent with small non drainable abscesses Colovesicular Fistula Presented with LLQ Pain/Hematochezia --CT ABD:Acute sigmoid diverticulitis with several small gas and fluid containing collections within the sigmoid mesocolon compatible with contained perforations/small abscesses. These findings are similar to the 06/04/2022 study. No drainable fluid collection identified. Probable colovesicular fistula with a large amount of air again noted within the urinary bladder lumen -- Blood cultures negative to date Received gentle IV fluids Continue IV Zosyn Pain control Appreciate surgery, ID input ID recommended Zosyn to be continued for 4 weeks. Will need weekly CBC, CMP. Patient would also require repeat CT in 2 to 3 weeks upon discharge. No plan for any surgical intervention currently as per surgery Monitor CBC and transfuse PRBCs as needed PICC line placement requested Repeat CT abdomen showed increasing abdominal abscess Patient accepted at [facility] ([place]) for IR intervention on Plan to discharge to [facility] for IR intervention tomorrow Needs follow-up with surgery upon discharge Hypokalemia Hypomagnesemia Replete electrolytes as needed Monitor Chronic HFref Nonobstructive CAD Last echocardiogram 02/2021 revealed EF of 40 to 45% Mild troponin elevation ? Chronic daily weights, strict I and O continue ASA, statin, metoprolol Lisinopril, Lasix, Aldactone held today due to relatively low blood pressure monitor volume status Chronic hypoxic Respiratory failure with hypoxia Chronic oxygen dependence:on 2L of O2 during day and 4L at HS COPD JORDAN continue home inhalers No signs of acute exacerbation DM II Well controlled, a1c 6.8 06/07/22 Continue NovoLog per protocol hold oral Meds Chronic Atrial Fibrillation continue metoprolol Not on oral anticoagulation due to H/O watchman procedure in 11/2019 Hyperthyroidism continue methimazole Chronic Anemia baseline hgb 9 monitor cbc follows hematology Recent anemia panel from 07/08 was iron 10, TIBC 162, Tsat 6%, Ferritin 214, B12 and FA WNL Hemoglobin drop likely secondary to IV fluids Hb 9.5 today S/P 1 unit PRBCs Monitor Endometrial thickening Incidental finding on CT Follow-up with OBGYN as outpatient DVT Px: SCDS due to hematochezia Code Status FULL CODE Admission and Anticipated Discharge Date Admission Date: July 17, 2022 Subjective Patient is seen and examined at bedside No significant change from yesterday States having abdominal pain, nausea with food intake Denies any chest pain, dyspnea, dizziness Had loose BM today Review of Systems Review of Systems: All systems reviewed & are unremarkable except as noted in Subjective Physical Exam Physical Exam: Physical Exam: Vitals signs as noted above General Appearance:Obese, no apparent distress Head: normocephalic, Atraumatic Eyes: normal inspection, EOMI Neck: supple, Trachea midline Respiratory/Chest: Decreased breath sounds, CTA, No accessory muscle use Cardiovascular: Irregularly irregular, No murmur Abdomen/GI:Soft, LLQ mild tender, Bowel sounds present Extremities/Musculoskeletal:normal inspection, 1+ B/L LE edema Neurologic/Psych:AAOX3, grossly no focal neurological deficits Skin: normal color, warm Results & Data Results & [facility] ([facility]) Vital Signs (Past 12 Hours) Vital Signs Temp Pulse Pulse Resp BP BP Pulse Ox 07/24/22 06:20 82 07/24/22 11:17 86 18 95 07/24/22 10:54 36.8 C 91 H 20 96/48 L 95 07/24/22 07:34 07/24/22 07:10 74 18 98 07/24/22 06:53 36.5 C 78 20 125/64 100 07/24/22 02:46 36.6 C 72 20 122/76 95 O2 Del Method O2 Flow Rate 07/24/22 06:20 07/24/22 11:17 Nasal Cannula 2 07/24/22 10:54 Nasal Cannula 3 07/24/22 07:34 Nasal Cannula 2 07/24/22 07:10 Nasal Cannula 4 07/24/22 06:53 Nasal Cannula 4 07/24/22 02:46 Nasal Cannula 4 Laboratory Results Short CBC 07/24/22 Range/Units 06:13 Hgb 9.5 L (12.0-16.0) g/dl Hct 30.6 L (34.1-44.9) % BMP 07/24/22 06:13 Sodium 139 Potassium 3.9 Chloride 101 Carbon Dioxide 34 H BUN 9 Creatinine 0.75 Glucose 109 H Calcium 8.8 (1) Diverticulitis large intestine Diverticulitis bleeding: with bleeding Diverticulitis complication: with perforation and abscess Qualified Code(s): K57.21 - Diverticulitis of large intestine with perforation and abscess with bleeding
[2022-07-24] MEDS: MONTELUKAST SODIUM 10 MG TABLET PO SCH (17:45)
[2022-07-24] MEDS: ATORVASTATIN 40 MG TAB PO SCH (19:48)
[2022-07-24] MEDS: BIMATOPROST 0.01% OP SOLN 2.5 ML BTL OPB SCH (19:49)
[2022-07-25] MEDS: PIPERACILLIN/TAZOBACTAM 4.5 GM in DEXTROSE 5% 100 ML IV SCH (04:58)
[2022-07-25] MEDS: MoRPHine SULFATE 2 MG/ML CARP IV PRN (05:45)
[2022-07-25] MEDS: Ipratropium HFA Inhaler (Combivent Respimat P&T Subs) INH SCH (07:25)
[2022-07-25] MEDS: Albuterol HFA 8 GM Inhaler (Combivent Respimat P&T Subs) INH SCH (07:25)
--- NOTE | 2022-07-25 07:27 | Hospitalist Progress Note ---
Date of Service July 25, 2022 Assessment & Plan (1) Diverticulitis large intestine: (2) Abdominal pain, LLQ: (3) Colovesical fistula: (4) Chronic HFrEF (heart failure with reduced ejection fraction): (5) Chronic respiratory failure with hypoxia and hypercapnia: (6) Diabetes mellitus, type 2: (7) Chronic atrial fibrillation: Plan Patient is an 81 yr female with H/O Chronic hypoxemic respiratory failure on 2 L of oxygen during day and 4 L at night, COPD with asthma overlap, chronic HFrEF, PAF status post watchman device, CKD stage III, HTN, HLD, T2DM, gastroparesis, history of ischemic colitis, history of diverticulitis, known colovesicular fistula who presents to ED secondary to left lower quadrant pain x2 to 3 days as well as hematochezia x1 day. Acute Sigmoid Diverticulitis, recurrent with abscess Colovesicular Fistula Presented with LLQ Pain/Hematochezia --CT ABD:Acute sigmoid diverticulitis with several small gas and fluid containing collections within the sigmoid mesocolon compatible with contained perforations/small abscesses. These findings are similar to the 06/04/2022 study. No drainable fluid collection identified. Probable colovesicular fistula with a large amount of air again noted within the urinary bladder lumen -- Blood cultures negative to date Received gentle IV fluids Continue IV Zosyn Pain control Appreciate surgery, ID input ID recommended Zosyn to be continued for 4 weeks: Last date 08/14/22. Will need weekly CBC, CMP. Patient would also require repeat CT in 2 to 3 weeks upon discharge. No plan for any surgical intervention currently as per surgery Monitor CBC and transfuse PRBCs as needed Repeat CT abdomen showed increasing abdominal abscess Patient accepted at [facility] ([place]) for IR intervention Plan to discharge to [facility] for IR intervention today Needs follow-up with surgery upon discharge Hypokalemia Hypomagnesemia Replete electrolytes as needed Monitor Chronic HFref Nonobstructive CAD Last echocardiogram 02/2021 revealed EF of 40 to 45% Mild troponin elevation ? Chronic daily weights, strict I and O continue ASA, statin, metoprolol Lisinopril, Lasix, Aldactone held today due to low blood pressure monitor volume status Resume diuretics as able Chronic hypoxic Respiratory failure with hypoxia Chronic oxygen dependence:on 2L of O2 during day and 4L at HS COPD JORDAN continue home inhalers No signs of acute exacerbation DM II Well controlled, a1c 6.8 06/07/22 Continue NovoLog per protocol hold oral Meds Chronic Atrial Fibrillation continue metoprolol Not on oral anticoagulation due to H/O watchman procedure in 11/2019 Hyperthyroidism continue methimazole Chronic Anemia baseline hgb 9 monitor cbc follows hematology Recent anemia panel from 07/08 was iron 10, TIBC 162, Tsat 6%, Ferritin 214, B12 and FA WNL Hemoglobin drop likely secondary to IV fluids Hb 9.5 S/P 1 unit PRBCs Monitor Endometrial thickening Incidental finding on CT Follow-up with OBGYN as outpatient DVT Px: SCDS due to hematochezia Code Status FULL CODE Disposition [facility] for IR intervention Admission and Anticipated Discharge Date Admission Date: July 17, 2022 Subjective Patient is seen and examined at bedside No new complaints Reports abdominal pain, nausea Denies any chest pain, dyspnea, dizziness Review of Systems Review of Systems: All systems reviewed & are unremarkable except as noted in Subjective Physical Exam Physical Exam: Physical Exam: Vitals signs as noted above General Appearance:Obese, no apparent distress Head: normocephalic, Atraumatic Eyes: normal inspection, EOMI Neck: supple, Trachea midline Respiratory/Chest: Decreased breath sounds, CTA, No accessory muscle use Cardiovascular: Irregularly irregular, No murmur Abdomen/GI:Soft, LLQ mild tender, Bowel sounds present Extremities/Musculoskeletal:normal inspection, 1+ B/L LE edema Neurologic/Psych:AAOX3, grossly no focal neurological deficits Skin: normal color, warm Results & Data Results & Data ([facility]) Vital Signs (Past 12 Hours) Vital Signs Temp Pulse Pulse Resp BP Pulse Ox O2 Del Method 07/25/22 06:19 36.6 C 76 20 114/59 L 97 Nasal Cannula 07/25/22 03:22 36.9 C 67 18 123/74 95 Nasal Cannula 07/24/22 20:00 82 07/24/22 20:00 Nasal Cannula 07/24/22 22:35 36.8 C 82 20 118/68 96 Nasal Cannula O2 Flow Rate 07/25/22 06:19 4 07/25/22 03:22 4 07/24/22 20:00 07/24/22 20:00 2 07/24/22 22:35 4 (1) Diverticulitis large intestine Diverticulitis bleeding: with bleeding Diverticulitis complication: with perforation and abscess Qualified Code(s): K57.21 - Diverticulitis of large intestine with perforation and abscess with bleeding
[2022-07-25] MEDS: UMECLIDINIUM BROMIDE 62.5MCG/BLISTER 7 PUFFS/INHALER INH SCH (07:34)
[2022-07-25] MEDS: CHOLECALCIFEROL 1,000 UNITS 25 MCG TAB PO SCH (07:34)
[2022-07-25] MEDS: METOPROLOL SUCC 25MG EXT REL TAB PO SCH (07:34)
[2022-07-25] MEDS: MAGNESIUM CHLORIDE W/CALCIUM 64MG DELAYED REL TAB PO SCH (07:34)
[2022-07-25] MEDS: MULTIVITAMIN TAB PO SCH (07:35)
[2022-07-25] MEDS: ADVANCED PROBIOTIC 1250 MG CAPSULE PO SCH (07:35)
[2022-07-25] MEDS: ASPIRIN 81 MG ECTAB PO SCH (07:35)
[2022-07-25] MEDS: DICYCLOMINE HCL 20 MG TAB PO SCH (07:35)
[2022-07-25] MEDS: FERROUS SULFATE 325 MG TAB PO SCH (07:35)
[2022-07-25] MEDS: SERTRALINE HCL 50 MG TABLET PO SCH (07:35)
[2022-07-25] MEDS: POTASSIUM CHLORIDE CRTAB 20 MEQ TABCR PO SCH (07:36)
[2022-07-25] MEDS: methIMAzole 5 MG TABLET PO SCH (07:36)
[2022-07-25] MEDS: PANTOprazole 40 MG TAB PO SCH (07:36)
[2022-07-25] MEDS: INSULIN ASPART PER UNIT SC SCH (07:37)
[2022-07-25] MEDS: BRINZOLAMIDE (AZOPT) OPS 10 ML BTL OPB SCH (07:37)
--- NOTE | 2022-07-25 07:54 | Discharge Summary ---
Date of Service July 25, 2022 Admission HPI Per Admitting Provider This is an 81-year-old female Who has a significant past medical history of chronic hypoxemic respiratory failure on 2 L of oxygen during day and 4 L at night, COPD with asthma overlap, chronic HFrEF, PAF status post watchman device, CKD stage III, HTN, HLD, T2DM, gastroparesis, history of ischemic colitis, history of diverticulitis, known colovesicular fistula who presents to ED secondary to left lower quadrant pain x2 to 3 days as well as hematochezia x1 day. Her daughter Stephani is at bedside. Patient states approximately 2 to 3 days ago she developed intermittent left lower quadrant pain. Pain was nonradiating, made worse with touch, made better with bowel movements, similar to previous episode of diverticulitis and associated with hematochezia that started today. She also notes bowel changes as typically she is constipated in the last 2 to 3 days she has had loose bowel movements. Of significance patient has recurrent complicated diverticulitis. Previously had been admitted to [facility] and treated with nonoperative conservative management and did well. She has been seen by general surgery on 07/08 for follow-up to discuss possible surgical intervention. Surgical invention includes laparoscopic/possible open low anterior resection and takedown of colovesicular fistula. She was deemed high risk given her cardiac history and comorbidities. She is scheduled to follow-up with [facility] 09/12 to discuss surgical intervention. She denies f/c/s, dizziness, lightheaded, chest pain, sob, uri sx, n/v, dysuria, increased urg/freq with urination. She has chronic SOB but feels this is at baseline with oxygen. Has not required albuterol or increased O2 requirements. CT abdomen pelvis reveals an acute sigmoid diverticulitis with several small gas and fluid containing collections within the sigmoid mesocolon compatible with perforation/small abscesses. Findings are similar to 06/04/2022. No drainable fluid collection. Probable colovesicular fistula with large amount of air again noted in the urinary bladder lumen.She was started on empiric IV Zosyn. Admission Exam Per Admitting Provider Physical Exam Physical Exam: Constitutional: WD/WN, elderly, F, vitals as above, NAD, sitting up in bed, pleasant, conversing easily Head: Normocephalic, Atraumatic Eyes: PERRL, conjunctivae normal, anicteric sclerae ENMT: external ear and nose normal, oropharynx normal Neck: trachea midline, no thyromegaly normal visual inspection Respiratory: normal respiratory effort, lungs clear to auscultation, no wheeze, rales, rhonchi. Normal insp/exp effort, no accessory muscle use Cardiovascular: IRR/IRR, s1/s2, no edema Vessels: no JVD or carotid bruit Chest: normal inspection of chest Abdomen: normal bowel sounds, soft, +pain to palp LLQ, no hepatosplenomegaly Musculoskeletal: no cyanosis or clubbing, extremities motor strength 5/5 Skin: no rashes, warm and dry normal turgor Neurologic: PERRL, EOMI, accommodation nl, no face palsy, no dysarthria CN's II-XI intact bilaterally and moves all extremities Psychiatric: A+Ox3, euthymic affect Lymphatic: no cervical or axillary lymphadenopathy : deferred Principal Diagnosis Acute Sigmoid Diverticulitis with abscess Colovesicular Fistula Hypokalemia Hypomagnesemia Endometrial thickening Discharge Data Allergies Allergy/AdvReac Type Severity Reaction Status Date / Time salmon oil Allergy Severe HIVES-REDDENED Verified 07/17/22 15:22 ALL OVER Iodinated Contrast Media Allergy Intermediate HIVES-GI Verified 07/17/22 15:22 SYMPTOMS valsartan Allergy Intermediate FAST HEART Verified 07/17/22 15:22 BEAT bupropion AdvReac Mild GI SYMPTOMS Verified 07/17/22 15:22 enalapril AdvReac Mild GI SYMPTOMS Verified 07/17/22 15:22 escitalopram AdvReac Mild GI SYMPTOMS Verified 07/17/22 15:22 metoprolol AdvReac Mild LOWERS Verified 07/17/22 15:22 PULSE RATE verapamil AdvReac Mild GI UPSET, Verified 07/17/22 15:22 fast heart rate Consultations 07/17/22 15:31 ED Decision to Admit Stat 07/17/22 15:39 Consult General Surgery Routine 07/17/22 17:29 Consult Infectious Diseases Routine 07/25/22 05:52 Burn CD for patient Stat Procedures Performed Laboratory Results WBC 9.26 K/ul (4.8-10.8) 07/23/22 05:36 RBC 3.26 M/uL (3.93-5.22) L 07/23/22 05:36 Hgb 9.5 g/dl (12.0-16.0) L 07/24/22 06:13 Hct 30.6 % (34.1-44.9) L 07/24/22 06:13 MCV 87.1 fL (80.0-100.0) 07/23/22 05:36 MCH 27.6 pg (25.0-34.0) 07/23/22 05:36 MCHC 31.7 g/dL (32.0-36.0) L 07/23/22 05:36 RDW Std Deviation 53.1 fL (36.4-46.3) H 07/23/22 05:36 RDW Coeff of Jesika 16.7 % (11.5-14.5) H 07/23/22 05:36 Plt Count 442 K/uL (130-400) H 07/23/22 05:36 MPV 9.4 fL (9.4-12.3) 07/23/22 05:36 Immature Gran % (Auto) 0.5 % 07/17/22 13:16 Neut % (Auto) 74.6 % 07/17/22 13:16 Lymph % (Auto) 12.3 % 07/17/22 13:16 Williamson % (Auto) 10.8 % 07/17/22 13:16 Eos % (Auto) 1.4 % 07/17/22 13:16 Baso % (Auto) 0.4 % 07/17/22 13:16 Neut # (Auto) 6.89 K/uL (1.4-6.5) H 07/17/22 13:16 Lymph # (Auto) 1.14 K/uL (1.2-3.4) L 07/17/22 13:16 Williamson # (Auto) 1.00 K/uL (0.24-0.82) H 07/17/22 13:16 Eos # (Auto) 0.13 K/uL (0-0.50) 07/17/22 13:16 Baso # (Auto) 0.04 K/uL (0-0.2) 07/17/22 13:16 Immature Gran # (Auto) 0.05 K/uL (0.00-0.02) H 07/17/22 13:16 PT 12.1 Seconds (9.0-12.0) H 07/17/22 13:16 INR 1.1 (0.9-1.1) 07/17/22 13:16 APTT 26.1 Seconds (21.0-31.0) 07/17/22 13:16 PTT Ratio 0.9 07/17/22 13:16 Sodium 139 mmol/L (136-145) 07/24/22 06:13 Potassium 3.9 mmol/L (3.5-5.1) 07/24/22 06:13 Chloride 101 mmol/L (98-107) 07/24/22 06:13 Carbon Dioxide 34 mmol/L (21-32) H 07/24/22 06:13 Anion Gap 4 (3-11) 07/24/22 06:13 BUN 9 mg/dl (6-23) 07/24/22 06:13 Creatinine 0.75 mg/dl (0.6-1.2) 07/24/22 06:13 Est Cr Clr Drug Dosing 65.4 ml/min 07/24/22 06:13 Est GFR ( Amer) 85.4 ml/min 07/24/22 06:13 Est GFR (Non-Af Amer) 73.7 ml/min 07/24/22 06:13 BUN/Creatinine Ratio 12.0 (10-20) 07/24/22 06:13 Glucose 109 mg/dl (70-99(Fasting)) H 07/24/22 06:13 POC Glucose 118 mg/dl (70-99) H 07/25/22 07:32 Lactate 1.4 mmol/L (0.4-2.0) 07/17/22 13:16 Calcium 8.8 mg/dl (8.5-10.1) 07/24/22 06:13 Magnesium 1.9 mg/dl (1.7-2.4) 07/24/22 06:13 Total Bilirubin 0.5 mg/dl (0.2-1.0) 07/17/22 13:16 AST 8 U/L (13-39) L 07/17/22 13:16 ALT 5 U/L (7-52) L 07/17/22 13:16 Alkaline Phosphatase 103 U/L (34-104) 07/17/22 13:16 Troponin I High Sens 15.6 pg/ml (0-14) H 07/18/22 00:20 Total Protein 5.9 gm/dl (6.0-8.3) L 07/17/22 13:16 Albumin 2.9 gm/dl (3.4-5.0) L 07/17/22 13:16 Globulin 3.0 gm/dl (2.5-4.0) 07/17/22 13:16 Albumin/Globulin Ratio 1.0 (0.9-2) 07/17/22 13:16 Lipase 6 U/L (11-82) L 07/17/22 13:16 POC Stool Occult Blood Cancelled 07/17/22 15:43 SARS-CoV-2 (PCR) NEGATIVE (Negative) 07/22/22 11:40 SARS-CoV-2, RNA, NAAT NEGATIVE (NEGATIVE) 07/17/22 13:20 Blood Type O Positive 07/22/22 09:26 Antibody Screen NEGATIVE 07/22/22 09:26 Crossmatch See Detail 07/22/22 09:26 Impressions Abdomen/Pelvis CT 07/22/22 10:32 CT OF THE ABDOMEN AND PELVIS WITHOUT CONTRAST CLINICAL HISTORY: Persistent left lower quadrant abdominal pain. COMPARISON STUDY: CT of the abdomen and pelvis July 17, 2022. TECHNIQUE: Axial images of the abdomen and pelvis were obtained without IV contrast. Images were reviewed in the axial, sagittal, and coronal planes. Auto mated exposure control was utilized for the study. A dose lowering technique was utilized adhering to the principles of ALARA. FINDINGS: Lung bases are unremarkable. Cardiomegaly is noted. Unenhanced images of the liver, spleen, right adrenal gland and pancreas are unremarkable. A 1.9 cm low-attenuation left adrenal nodule is unchanged since CT of July 07, 2010. This represents an adenoma. Low-attenuation right renal lesions are suboptimally assessed on this unenhanced exam but likely reflect cysts. There is no hydronephrosis. There is no biliary or pancreatic ductal dilatation. A moderate amount stool within the colon is noted. There is extensive colonic diverticulosis. Wall thickening of the proximal sigmoid colon is again noted with adjacent inflammation consistent with acute diverticulitis. A 6 x 3.7 cm pericolonic fluid collection on axial image 314 of 436 has increased in size since CT of July 17, 2022. This favors a diverticular abscess. There is possible involvement of the left adnexa. The left ovary is obscured on this examination. Gas within the bladder is noted. Probable colovesical fistula is noted on axial image 309 of 436. Additional smaller ill-defined pericolonic gas and fluid containing collections are present. These collections are similar to prior CT. Inflammation adjacent to the bladder is noted. IMPRESSION: 1. Acute sigmoid diverticulitis. Increase in size of a 6 x 3.7 cm pericolonic fluid collection suggestive of a diverticular abscess. Additional smaller pericolonic abscesses are similar to prior CT. 2. Colovesicular fistula, as described above. Large amount of gas within the bladder with adjacent stranding. 3. Obscured left ovary. This inflammatory process likely involves the left adnexa. 4. No bowel obstruction. ACT 112: Negative or not required by law. Electronically signed by: Shadi Ravi M.D. 07/22/2022 1:00 PM Ordered Studies 07/17/22 12:52 CT abd pelvis wo con Stat 07/22/22 10:32 CT Abd and Pelvis [CT abd pelvis wo con] Urgent Hospital Course (1) Diverticulitis large intestine: (2) Abdominal pain, LLQ: (3) Colovesical fistula: (4) Chronic HFrEF (heart failure with reduced ejection fraction): (5) Chronic respiratory failure with hypoxia and hypercapnia: (6) Diabetes mellitus, type 2: (7) Chronic atrial fibrillation: Plan Patient is an 81 yr female with H/O Chronic hypoxemic respiratory failure on 2 L of oxygen during day and 4 L at night, COPD with asthma overlap, chronic HFrEF, PAF status post watchman device, CKD stage III, HTN, HLD, T2DM, gastroparesis, history of ischemic colitis, history of diverticulitis, known colovesicular fistula who presents to ED secondary to left lower quadrant pain x2 to 3 days as well as hematochezia x1 day. Acute Sigmoid Diverticulitis, recurrent with abscess Colovesicular Fistula Presented with LLQ Pain/Hematochezia --CT ABD:Acute sigmoid diverticulitis with several small gas and fluid containing collections within the sigmoid mesocolon compatible with contained perforations/small abscesses. These findings are similar to the 06/04/2022 study. No drainable fluid collection identified. Probable colovesicular fistula with a large amount of air again noted within the urinary bladder lumen -- Blood cultures negative to date Received gentle IV fluids Continue IV Zosyn Pain control Appreciate surgery, ID input ID recommended Zosyn to be continued for 4 weeks: Last date 08/14/22. Will need weekly CBC, CMP. Patient would also require repeat CT in 2 to 3 weeks upon discharge. No plan for any surgical intervention currently as per surgery Monitor CBC and transfuse PRBCs as needed Repeat CT abdomen showed increasing abdominal abscess Patient accepted at [facility] for IR intervention Plan to discharge to [facility] for IR intervention today Needs follow-up with surgery upon discharge Hypokalemia Hypomagnesemia Replete electrolytes as needed Monitor Chronic HFref Nonobstructive CAD Last echocardiogram 02/2021 revealed EF of 40 to 45% Mild troponin elevation ? Chronic daily weights, strict I and O continue ASA, statin, metoprolol Lisinopril, Lasix, Aldactone held today due to low blood pressure monitor volume status Resume diuretics as able Chronic hypoxic Respiratory failure with hypoxia Chronic oxygen dependence:on 2L of O2 during day and 4L at HS COPD JORDAN continue home inhalers No signs of acute exacerbation DM II Well controlled, a1c 6.8 06/07/22 Continue NovoLog per protocol hold oral Meds Chronic Atrial Fibrillation continue metoprolol Not on oral anticoagulation due to H/O watchman procedure in 11/2019 Hyperthyroidism continue methimazole Chronic Anemia baseline hgb 9 monitor cbc follows hematology Recent anemia panel from 07/08 was iron 10, TIBC 162, Tsat 6%, Ferritin 214, B12 and FA WNL Hemoglobin drop likely secondary to IV fluids Hb 9.5 S/P 1 unit PRBCs Monitor Endometrial thickening Incidental finding on CT Follow-up with OBGYN as outpatient DVT Px: SCDS due to hematochezia Code Status FULL CODE Disposition [facility] for IR intervention Total Time Total Time Spent Total Time Spent (In Minutes): 55 minutes Discharge Plan Discharge Items Patient Disposition: Transfer Acute Care Hospital Reason For Visit: ACUTE DIVERTICULITIS Discharge Diagnosis: Acute Sigmoid Diverticulitis with abscess Colovesicular Fistula Hypokalemia Hypomagnesemia Endometrial thickening Activity: Per Instructions section Exercise/Sports: Gradually increase as tolerated Non-emergency contact: Primary Care Provider and Surgeon Call non-emergency contact if: you have any medication questions, your symptoms worsen, your pain is concerning for you and you have a fever Follow-up/Referrals: Marcela Pinto MD [Primary Care Provider] - (Date & Time 07/29/2022 10:20 AM Provider Leanne Soriano MD Department General Internal Medicine [facility] ) Diet: Carb Consistent or DM2 and Low Fiber Addtl Attending Provider Instructions: Follow up with your PCP in 1 week upon discharge Follow up with interventional radiology at [facility] for IR intervention Follow-up with OBGYN for further assessment of endometrial thickening which was incidentally found on CT scan. --Complete the antibiotic course IV Zosyn 4.5 g every 8 hours till 08/14/22, to complete 4-week course of IV antibiotics as recommended by infectious disease Dr. Sen. --- Get weekly CBC, CMP while on IV antibiotics. -- You will need a repeat CT abdomen pelvis with oral contrast in 2 to 3 weeks upon discharge --- Your lisinopril, diuretics (Lasix, spironolactone) were held during your hospital stay due to low blood pressure. Seek immediate medical attention if your symptoms reoccur or worsen Please take all medications as instructed on discharge list below. Please call if you have any questions or problems. You can reach a [facility] hospitalist on duty at [facility] 24 hours a day by calling [phone] Add Valet Provider Instructions: Current Inpatient Medications Acetaminophen (Acetaminophen 325 Mg Tab) 650 mg PO Q4H PRN PRN Reason: Pain or Fever Stop: 08/16/22 17:17 Last Admin: 07/24/22 22:06 Dose: 650 mg Hydrocodone Bitart/Acetaminophen (Hydrocodone/Acetamophen 5/325mg Tab) 1 tab PO Q6H PRN PRN Reason: Pain 1-6 Stop: 07/31/22 17:24 Last Admin: 07/24/22 20:10 Dose: 1 tab Albuterol (Albuterol Hfa 8 Gm Inhaler) 2 puffs INH QID PRN PRN Reason: Shortness Of Breath Stop: 08/16/22 17:24 Albuterol (Albuterol Hfa 8 Gm Inhaler (Combivent Respimat P&T Subs)) 1 puffs INH QIDR ANDREA Stop: 08/16/22 18:59 Last Admin: 07/25/22 07:25 Dose: 1 puffs Aspirin (Aspirin 81 Mg Ectab) 81 mg PO DAILY [facility] Stop: 08/17/22 08:59 Last Admin: 07/25/22 07:35 Dose: 81 mg Atorvastatin Calcium (Atorvastatin 40 Mg Tab) 40 mg PO HS [facility] Stop: 08/16/22 20:59 Last Admin: 07/24/22 19:48 Dose: 40 mg Bimatoprost (Bimatoprost 0.01% Op Soln 2.5 Ml Btl) 1 drops OPB HS [facility] Stop: 08/16/22 20:59 Last Admin: 07/24/22 19:49 Dose: 1 drops Brinzolamide (Brinzolamide (Azopt) Ops 10 Ml Btl) 1 drops OPB BID [facility] Stop: 08/16/22 20:59 Last Admin: 07/25/22 07:37 Dose: 1 drops Dextrose (Dextrose 50% 50 Ml Syringe) 25 - 50 ml IV UD PRN; Protocol PRN Reason: Hypoglycemia Protocol Stop: 08/16/22 17:29 Dicyclomine HCl (Dicyclomine Hcl 20 Mg Tab) 20 mg PO DAILY [facility] Stop: 08/17/22 08:59 Last Admin: 07/25/22 07:35 Dose: 20 mg Ferrous Sulfate (Ferrous Sulfate 325 Mg Tab) 325 mg PO DAILY [facility] Stop: 08/17/22 08:59 Last Admin: 07/25/22 07:35 Dose: 325 mg Furosemide (Furosemide 20 Mg Tab) 20 mg PO BID17 [facility] Stop: 08/19/22 16:59 Last Admin: 07/23/22 08:11 Dose: 20 mg Glucagon (Glucagon For Inj 1 Mg Vial) 1 mg SQ UD PRN; Protocol PRN Reason: Hypoglycemia Protocol Stop: 08/16/22 17:29 Glucose (Glucose 40% Gel 15 Gm Tube) 15 - 30 gm PO UD PRN; Protocol PRN Reason: Hypoglycemia Protocol Stop: 08/16/22 17:29 Glucose (Glucose 10 Tab/Tube) 4 - 8 tab PO UD PRN; Protocol PRN Reason: Hypoglycemia Treatment Stop: 08/16/22 17:29 Piperacillin Sod/Tazobactam (Sod 4.5 gm/ Dextrose) 120 mls @ 30 mls/hr IV Q8@0600,1400,2200 [facility]; Protocol Stop: 08/14/22 15:00 Last Infusion: 07/25/22 05:32 Dose: 30 mls/hr Insulin Aspart (Insulin Aspart Per Unit) 0 units SC ACHS ANDREA Stop: 08/16/22 20:59 Last Admin: 07/25/22 07:37 Dose: Not Given Ipratropium Gunlock (Ipratropium Hfa Inhaler (Combivent Respimat P&T Subs)) 1 puffs INH QIDR ANDREA Stop: 08/16/22 18:59 Last Admin: 07/25/22 07:25 Dose: 1 puffs Lactobacillus Acidophilus (Advanced Probiotic 1250 Mg Capsule) 2 cap PO QAM ANDREA Stop: 08/17/22 08:59 Last Admin: 07/25/22 07:35 Dose: 2 cap Lisinopril (Lisinopril 2.5 Mg Tab) 2.5 mg PO DAILY [facility] Stop: 08/17/22 08:59 Last Admin: 07/20/22 08:45 Dose: Not Given Magnesium Chloride (Magnesium Chloride W/Calcium 64mg Delayed Rel Tab) 64 mg PO BID ANDREA Stop: 08/19/22 20:59 Last Admin: 07/25/22 07:34 Dose: 64 mg Methimazole (Methimazole 5 Mg Tablet) 5 mg PO DAILY [facility] Stop: 08/17/22 08:59 Last Admin: 07/25/22 07:36 Dose: 5 mg Metoprolol Succinate (Metoprolol Succ 25mg Ext Rel Tab) 25 mg PO DAILY [facility] Stop: 08/17/22 08:59 Last Admin: 07/25/22 07:34 Dose: 25 mg Metoprolol Succinate (Metoprolol Succ 25mg Ext Rel Tab) 12.5 mg PO PM ANDREA Stop: 08/16/22 20:59 Last Admin: 07/24/22 19:51 Dose: 12.5 mg Miscellaneous (Carbohydrates For Hypoglycemia ) 15 - 30 gm PO UD PRN PRN Reason: Hypoglycemia Protocol Stop: 08/16/22 17:29 Montelukast Sodium (Montelukast Sodium 10 Mg Tablet) 10 mg PO 1700 [facility] Stop: 08/21/22 16:59 Last Admin: 07/24/22 17:45 Dose: 10 mg Morphine Sulfate (Morphine Sulfate 2 Mg/Ml Carp) 1 mg IV Q6H PRN PRN Reason: Pain 7-10 Stop: 07/31/22 18:03 Last Admin: 07/25/22 05:45 Dose: 1 mg Multivitamins (Multivitamin Tab) 1 tab PO QAM [facility] Stop: 08/17/22 08:59 Last Admin: 07/25/22 07:35 Dose: 1 tab Ondansetron HCl (Ondansetron Inj 2 Mg/Ml 2 Ml Vial) 4 mg IV Q6H PRN PRN Reason: Nausea And Vomiting Stop: 08/22/22 08:24 Last Admin: 07/24/22 17:43 Dose: 4 mg Pantoprazole Sodium (Pantoprazole 40 Mg Tab) 40 mg PO BID [facility] Stop: 08/16/22 20:59 Last Admin: 07/25/22 07:36 Dose: 40 mg Polyethylene Glycol (Polyethylene (Miralax) 17 Gm Pack) 17 gm PO DAILY PRN PRN Reason: Constipation Stop: 08/21/22 17:17 Last Admin: 07/23/22 08:10 Dose: 17 gm Potassium Chloride (Potassium Chloride Crtab 20 Meq Tabcr) 20 meq PO DAILY ANDREA Stop: 08/22/22 08:59 Last Admin: 07/25/22 07:36 Dose: 20 meq Sertraline HCl (Sertraline Hcl 50 Mg Tablet) 25 mg PO DAILY [facility] Stop: 08/17/22 08:59 Last Admin: 07/25/22 07:35 Dose: 25 mg Spironolactone (Spironolactone 12.5 Mg Tab) 12.5 mg PO MoWeFr@0900 [facility] Stop: 08/18/22 08:59 Last Admin: 07/19/22 08:46 Dose: 12.5 mg Umeclidinium Gunlock (Umeclidinium Gunlock 62.5mcg/Blister 7 Puffs/Inhaler) 1 puffs INH DAILY [facility] Stop: 08/17/22 08:59 Last Admin: 07/25/22 07:34 Dose: 1 puffs Vitamin D (Cholecalciferol 1,000 Units 25 Mcg Tab) 2,000 units PO QAM [facility] Stop: 08/17/22 08:59 Last Admin: 07/25/22 07:34 Dose: 2,000 units Pending Studies at Discharge: No Stand-Alone Forms: [facility] Skilled Items Patient informed of condition?: Yes DNR: No Discharge Level of Care: Other Communicable Disease: No Discharge Prognosis: Stable Lines: Peripheral IV Urinary Catheter: No Medications and DC Order Prescriptions: New Mag 64 64 mg Tablet,Delayed Release (Dr/Ec) 64 mg PO BID Qty: 0 0RF Continued albuterol sulfate [Ventolin HFA] 90 mcg/actuation HFA aerosol inhaler 2 puff INHALATION QID PRN (Reason: Shortness Of Breath) Qty: 6.7 11RF Spiriva Respimat 1.25 mcg/actuation mist 2 puff inhalation DAILY Qty: 1 11RF sertraline 25 mg tablet 25 mg PO DAILY aspirin [Kenzie Low Dose Aspirin] 81 mg tablet,delayed release (DR/EC) 81 mg PO DAILY lisinopril 2.5 mg tablet 2.5 mg PO DAILY dicyclomine 20 mg tablet 20 mg PO DAILY spironolactone 25 mg tablet 12.5 mg PO MOWEFR Rx Instructions: MON, WED, & FRI. multivitamin Tablet 1 tab PO QAM promethazine 25 mg Tablet 25 mg PO Q6H PRN (Reason: nausea and vomiting) Qty: 60 0RF atorvastatin 40 mg Tablet 40 mg PO HS docusate sodium 100 mg Capsule 100 mg PO QAM omeprazole 20 mg Capsule,Delayed Release(Dr/Ec) 20 mg PO BID cholecalciferol (vitamin D3) [Vitamin D3] 1,000 unit Capsule 2,000 unit PO QAM ferrous sulfate [iron] 325 mg (65 mg iron) tablet 325 mg PO QAM glimepiride 4 mg tablet 2 mg PO QAM PRN (Reason: Hyperglycemia) Rx Instructions: checks sugar first and if below 100 holds zafirlukast 20 mg tablet 20 mg PO QAM albuterol sulfate 2.5 mg /3 mL (0.083 %) Solution For Nebulization 2.5 mg INHALATION BID PRN (Reason: .WORSENING ASTHMA) brinzolamide [Azopt] 1 % Drops,Suspension 1 drp OPB BID Lumigan 0.01 % drops 1 drp OPB HS polyethylene glycol 3350 [Miralax] 17 gram/dose Powder 17 g PO BID PRN (Reason: Constipation) Rx Instructions: TAKE 17G BY MOUTH 2 TIMES A DAY. ONE CAPFULL IN JUICE, TO EFFECT 1 STOOL PER DAY. hydrocodone-acetaminophen 5-325 mg Tablet 1 tab PO Q6H PRN (Reason: Pain) Probiotic 3 billion cell Capsule 3,000 mmu cells PO QAM furosemide 40 mg tablet 40 mg PO BID ondansetron 8 mg Tablet,Disintegrating 8 mg PO Q8H PRN (Reason: Nausea And Vomiting) potassium chloride [Klor-Con M20] 20 mEq tablet,ER particles/crystals 20 meq PO DAILY Combivent Respimat 20-100 mcg/actuation mist 1 puff INHALATION QID metoprolol succinate 25 mg tablet extended release 24 hr 25 mg PO DAILY metoprolol succinate 25 mg tablet extended release 24 hr 12.5 mg PO PM methimazole 5 mg tablet 5 mg PO DAILY Discharge Orders: Discharge Order (Routine); Ordered 07/25/22 Ordered By: Antoine Calderon Admission Data Admit Date/Time: 07/17/22 15:39 Attending Provider: Antoine Calderon Admit Provider: Antoine Calderon Primary Care Provider: Marcela Pinto Other Providers: Antoine Calderon ; Lonnie Carnes ; Shimon Garcia ; Ingris Reyes ; Chavez Jarrell I. ; Dhruv Sen II ; Mamta Farley ; Jerry Wilson ; Samson Sutton ; Patsy Quinones ; [facility]
[2022-07-25] MEDS: HYDROCODONE/ACETAMOPHEN 5/325MG TAB PO PRN (08:40)
== END 2022-07-25 09:54 | disposition short-term general hospital (02) | DRG 392 ==
LOC: ED 12:37 → 2N 15:39

== ENCOUNTER 2022-11-16 14:29 | Inpatient (IN) ==
[2022-11-16] MEDS ORDERED: ALBUT/IPRATROP 3MG/0.5MG NEB 3 ML VIAL NEB ONE (14:52)
[2022-11-16] MEDS ORDERED: dexAMETHasone**PF** 10 MG/ML VIAL IV ONE (14:52)
[2022-11-16] MEDS ORDERED: diphenhydrAMINE 50 MG/ML VIAL IV STA (14:54)
[2022-11-16] MEDS ORDERED: dilTIAZem HCl 5 MG/ML 5 ML VIAL IV STA (15:01)
--- NOTE | 2022-11-16 15:10 | Emergency Department Note ---
Impression & Plan Acute exacerbation of chronic obstructive pulmonary disease (COPD), COVID-19, Atrial fibrillation with RVR, Hypoxia ED Provider Note CHIEF COMPLAINT: Shortness of breath HISTORY OF PRESENT ILLNESS: This 81-year-old female patient presents to the emergency department with complaints of increasing shortness of breath. The patient is currently at [facility] for physical rehabilitation after bladder surgery and a colonic resection due to diverticulitis. Patient's daughter states she has been "doing very well" until she was diagnosed with COVID. She does normally wear home oxygen at 2 L due to COPD. She has been receiving Lasix since the surgery and today had a sudden worsening of her breathing. REVIEW OF SYSTEMS: A review of systems was performed with positives and pertinent negatives listed in the history of present illness. 10 systems were reviewed and are otherwise negative. ALLERGIES: see below MEDICATIONS: see below PMH: see below SOCIAL HISTORY: see below DDx: Reactive airway disease, pneumonia, pneumothorax, COPD, CHF, infections, cardiac ischemia, pulmonary embolism, musculoskeletal, gastrointestinal, as well as other pathologies. PHYSICAL EXAM: Vital signs reviewed. General: Somewhat ill-appearing 81-year-old female, in some respiratory discomfort HEENT: No scleral icterus, PERRLA, neck supple. Atraumatic. Cardiovascular: Tachycardic and irregular Pulmonary: Increased work of breathing, wheezes throughout the bilateral lung duffy Abdomen: Soft, nontender, nondistended, positive bowel sounds. Musculoskeletal: Atraumatic, no peripheral edema. Neurologic: Patient awake alert and oriented x 3 Skin: Warm, dry, no rash EMERGENCY DEPARTMENT COURSE/MDM: This patient was evaluated and appeared to be in some respiratory discomfort. IV access was obtained and laboratory work was drawn. The patient was placed on the system support technician and noted to be in some respiratory discomfort. Patient was medicated with IV dexamethasone and a DuoNeb hour-long treatment. CT imaging of the chest was ordered to rule out PE after IV Benadryl due to the patient's contrast allergy. Patient was given one half amp of IV D50 due to hypoglycemia. CT is negative for PE however reveals bilateral tree-in-bud nodularity in the right upper and lower lung duffy. Patient seemed to do well on oxygen mask however did require increased titration due to hypoxia. She was given IV Cardizem 20 mg for rapid atrial fibrillation. Case was discussed with the [facility] hospitalist, Georgette Love, VIDEO ENGINEER for admission and further management. MONITORING: An order for cardiac monitoring was placed and the patient is noted to be in a rapid atrial fibrillation 136 beats per minute. RADIOLOGY: To my interpretation reveals cardiomegaly with no evidence of focal lung consolidation or failure. Otherwise defer to radiology. EKG: Atrial fibrillation with RVR at 112 bpm, left bundle branch block, PVC versus a aberrantly conducted complex noted. When compared to previous dated July 18, 2022 QRS is slightly longer DISPOSITION: Admission I have personally spent 35 minutes of critical care time in the direct management of this patient. This was a life/limb threatening event. This 35 minutes is in excess of all separately billable procedures. Past Med/Surg History Medical History Aortic valve stenosis, mild Asthma Chris-tachy syndrome Chronic atrial fibrillation Chronic diastolic CHF (congestive heart failure) Chronic HFrEF (heart failure with reduced ejection fraction) Chronic respiratory failure with hypoxia and hypercapnia Colovesical fistula COPD (chronic obstructive pulmonary disease) Diabetes mellitus, type 2 Diverticulitis large intestine Esophageal reflux Glaucoma of both eyes Hyperlipidemia Hypertension Lower GI bleed NICM (nonischemic cardiomyopathy) On home oxygen therapy 2L N/C at all times and 4 L N/C at night JORDAN (obstructive sleep apnea) Sleep apnea Subclinical hyperthyroidism Subepithelial mass of stomach Surgical History H/O colonoscopy "04/2014 - diverticular disease throughout colon, internal hemorrhoids, polyp removed" History of appendectomy History of cardiac cath "YEARS AGO"NO BLOCKAGES/NO STENTS-F/U DR THOMSON History of cholecystectomy History of dilatation and curettage History of esophagogastroduodenoscopy (EGD) "04/2014 - normal" History of incisional hernia repair History of tooth extraction all teeth Hx of small bowel obstruction "11/2017 - Seen [facility] - surgical intervention" Nausea and vomiting after administration of anesthetic agent Presence of Watchman left atrial appendage closure device 11/2019 @ [facility] Dr. Velez Status post tonsillectomy and adenoidectomy Status post tubal ligation Family History Mother Breast cancer Father Heart disease Brother COPD (chronic obstructive pulmonary disease) Aunt Diabetes Son JORDAN (obstructive sleep apnea) Daughter Asthma Other No family history of adverse response to anesthesia No pertinent family history in first degree relatives 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 Smoking Status: Never smoker Second Hand Exposure: No; Hx Alcohol Use: No Hx Substance Use: No Preferred Language: Afghan Communication Ability: Effective [place] Operator Required: No Beliefs That Will Affect Care: None marital status: / Current Living Situation: Alone Feels Safe at Home: Yes Assistive Devices: Cane, Glasses, Oxygen - Continuous and Walker Allergies Allergies Allergy/AdvReac Type Severity Reaction Status Date / Time salmon oil Allergy Severe HIVES-REDDENED Verified 07/17/22 15:22 ALL OVER Iodinated Contrast Media Allergy Intermediate HIVES-GI Verified 07/17/22 15:22 SYMPTOMS valsartan Allergy Intermediate FAST HEART Verified 07/17/22 15:22 BEAT bupropion AdvReac Mild GI SYMPTOMS Verified 07/17/22 15:22 enalapril AdvReac Mild GI SYMPTOMS Verified 07/17/22 15:22 escitalopram AdvReac Mild GI SYMPTOMS Verified 07/17/22 15:22 metoprolol AdvReac Mild LOWERS Verified 07/17/22 15:22 PULSE RATE verapamil AdvReac Mild GI UPSET, Verified 07/17/22 15:22 fast heart rate Home Meds Home Medications Medication Instructions Recorded Confirmed atorvastatin 40 mg tablet 40 mg PO HS 06/23/19 11/16/22 cholecalciferol (vitamin D3) 25 2,000 unit PO QAM 06/23/19 11/16/22 mcg (1,000 unit) capsule (Vitamin D3) docusate sodium 100 mg capsule 100 mg PO BID 06/23/19 11/16/22 albuterol sulfate 2.5 mg/3 mL 2.5 mg inhalation BID PRN 09/25/19 11/16/22 (0.083 %) solution for nebulization .WORSENING ASTHMA bimatoprost 0.01 % eye drops 1 drp OPB HS 09/25/19 11/16/22 (Lumigan) ferrous sulfate 325 mg (65 mg 325 mg PO QAM 02/23/20 11/16/22 iron) tablet (iron) aspirin 81 mg tablet,delayed 81 mg PO DAILY 04/26/21 02/04/23 release (Kenzie Low Dose Aspirin) ipratropium 20 mcg-albuterol 100 1 puff inhalation QID 04/09/21 11/16/22 mcg/actuation mist for inhalation (Combivent Respimat) potassium chloride 20 mEq 20 meq PO DAILY 04/09/21 11/16/22 tablet,extended release(part/cryst) (Klor-Con M) dicyclomine 20 mg tablet 20 mg PO DAILY 01/14/22 11/16/22 spironolactone 25 mg tablet 12.5 mg PO MOWEFR 01/14/22 11/16/22 sertraline 25 mg tablet 25 mg PO DAILY 03/13/22 11/16/22 furosemide 40 mg tablet 40 mg PO BID 05/31/22 11/16/22 methimazole 5 mg tablet 5 mg PO DAILY 07/17/22 11/16/22 metoprolol succinate 25 mg 12.5 mg PO DAILY 07/17/22 11/16/22 tablet,extended release 24 hr dorzolamide 2 % eye drops 1 drp ophthalmic (eye) BID 11/16/22 11/16/22 enoxaparin 40 mg/0.4 mL 40 mg subcut DAILY 11/16/22 11/16/22 subcutaneous syringe (Lovenox) glimepiride 2 mg tablet 2 mg PO DAILY 11/16/22 11/16/22 nirmatrelvir 300 mg (150 mg 0 ea PO .COMPLEX 11/16/22 11/16/22 x2)-ritonavir 100 mg tablet,dose pack(EUA) (Paxlovid) oxycodone 5 mg tablet 5 mg PO Q4H PRN Pain 11/16/22 11/16/22 pantoprazole 40 mg tablet,delayed 40 mg PO DAILY 11/16/22 11/16/22 release sucralfate 1 gram tablet 1 g PO ACHS 11/16/22 11/16/22 Previous Rx's Medication Instructions Recorded albuterol sulfate 90 mcg/actuation 2 puff inhalation QID PRN 05/03/22 aerosol inhaler (Ventolin HFA) Shortness Of Breath #6.7 grams Results & Data (ED) Vital Signs Vital Signs - 24 hr 11/16/22 14:39 11/16/22 14:58 11/16/22 15:02 Temperature 37 C Temperature Source Oral Pulse Rate 136 H Pulse Rate [Apical] Pulse Rate [Left Apical] Pulse Rhythm [Apical] Pulse Rhythm [Left Apical] Pulse Strength [Apical] Respiratory Rate 38 H Respiratory Effort / Characteristics Non-Labored Spontaneous Respiratory Depth Normal Blood Pressure [Left Arm] 129/80 Blood Pressure Mean [Left Arm] 96 Pulse Oximetry 86 L 97 Oxygen Delivery Method Room Air Oxymask Oxygen Flow Rate 4 Sepsis Recent Fever Within 48 Hours No Sepsis New/Unexplained Change in Mental Status No Sepsis Action Taken by Nursing Physician Notified 11/16/22 15:32 11/16/22 15:47 11/16/22 15:48 Temperature Temperature Source Pulse Rate Pulse Rate [Apical] 86 98 H Pulse Rate [Left Apical] Pulse Rhythm [Apical] Irregular Pulse Rhythm [Left Apical] Pulse Strength [Apical] Respiratory Rate 22 28 H Respiratory Effort / Characteristics Spontaneous Spontaneous Respiratory Depth Blood Pressure [Left Arm] 94/67 L Blood Pressure Mean [Left Arm] 76 Pulse Oximetry 97 97 99 Oxygen Delivery Method Oxymask Oxymask Oxymask Oxygen Flow Rate 4 4 4 Sepsis Recent Fever Within 48 Hours Sepsis New/Unexplained Change in Mental Status Sepsis Action Taken by Nursing 11/16/22 17:45 11/16/22 17:52 11/16/22 19:00 Temperature Temperature Source Pulse Rate Pulse Rate [Apical] 106 H Pulse Rate [Left Apical] 102 H 104 H Pulse Rhythm [Apical] Irregular Pulse Rhythm [Left Apical] Irregular Pulse Strength [Apical] Normal Respiratory Rate 22 22 22 Respiratory Effort / Characteristics Non-Labored Spontaneous Non-Labored Spontaneous Respiratory Depth Normal Normal Blood Pressure [Left Arm] 99/70 L 109/83 Blood Pressure Mean [Left Arm] 79 91 Pulse Oximetry 95 100 98 Oxygen Delivery Method Oxymask Oxymask Nasal Cannula Oxygen Flow Rate 6 4 4 Sepsis Recent Fever Within 48 Hours Sepsis New/Unexplained Change in Mental Status Sepsis Action Taken by Correction Medications Current Medication List: was personally reviewed by me Laboratory Data Attestation: I reviewed the patient's lab results. 11/16/22 15:05 11/16/22 15:05 Lab Results 11/16/22 11/16/22 11/16/22 Range/Units 14:45 15:05 15:05 WBC 11.52 H (4.8-10.8) K/ul RBC 3.71 L (4.20-5.40) M/uL Hgb 10.3 L (12.0-16.0) g/dl Hct 32.1 L (37.0-47.0) % MCV 86.5 (80.0-100.0) fL MCH 27.8 (25.0-34.0) pg MCHC 32.1 (32.0-36.0) g/dL RDW Std Deviation 44.7 (36.4-46.3) fL RDW Coeff of Jesika 14.1 (11.5-14.5) % Plt Count 437 H (130-400) K/uL MPV 10.1 (9.4-12.4) fL Immature Gran % (Auto) 1.7 % Neut % (Auto) 70.9 % Lymph % (Auto) 7.3 % [place] % (Auto) 18.4 % Eos % (Auto) 1.4 % Baso % (Auto) 0.3 % Neut # (Auto) 8.16 H (1.40-6.50) K/uL Lymph # (Auto) 0.84 L (1.2-3.4) K/uL [place] # (Auto) 2.12 H (0.11-0.59) K/uL Eos # (Auto) 0.16 (0-0.50) K/uL Baso # (Auto) 0.04 (0-0.2) K/uL Immature Gran # (Auto) 0.20 (0.01-0.20) K/uL Sodium 129 L (136-145) mmol/L Potassium 3.7 (3.5-5.1) mmol/L Chloride 85 L (98-107) mmol/L Carbon Dioxide 38 H (21-32) mmol/L Anion Gap 6 (3-11) BUN 18 (6-23) mg/dl Creatinine 1.13 (0.6-1.2) mg/dl Est Cr Clr Drug Dosing Not Reportable Est GFR ( Amer) 52.1 ml/min Est GFR (Non-Af Amer) 44.9 ml/min BUN/Creatinine Ratio 15.9 (10-20) Glucose 61 L (70-99(Fasting)) mg/dl POC Glucose 89 (70-99) mg/dl Calcium 9.2 (8.5-10.1) mg/dl Magnesium 1.7 (1.7-2.4) mg/dl Total Bilirubin 0.3 (0.2-1.0) mg/dl AST 15 (13-39) U/L ALT 8 (7-52) U/L Alkaline Phosphatase 89 (34-104) U/L Troponin I High Sens 19.6 H (0-14) pg/ml Total Protein 6.7 (6.0-8.3) gm/dl Albumin 3.5 (3.4-5.0) gm/dl Globulin 3.2 (2.5-4.0) gm/dl Albumin/Globulin Ratio 1.1 (0.9-2) SARS-CoV-2 (PCR) (Negative) Influenza Type A (PCR) (Neg) Influenza Type B (PCR) (Neg) RSV (RT-PCR) (Neg) 11/16/22 11/16/22 Range/Units 18:30 Unknown WBC (4.8-10.8) K/ul RBC (4.20-5.40) M/uL Hgb (12.0-16.0) g/dl Hct (37.0-47.0) % MCV (80.0-100.0) fL MCH (25.0-34.0) pg MCHC (32.0-36.0) g/dL RDW Std Deviation (36.4-46.3) fL RDW Coeff of Jesika (11.5-14.5) % Plt Count (130-400) K/uL MPV (9.4-12.4) fL Immature Gran % (Auto) % Neut % (Auto) % Lymph % (Auto) % [place] % (Auto) % Eos % (Auto) % Baso % (Auto) % Neut # (Auto) (1.40-6.50) K/uL Lymph # (Auto) (1.2-3.4) K/uL [place] # (Auto) (0.11-0.59) K/uL Eos # (Auto) (0-0.50) K/uL Baso # (Auto) (0-0.2) K/uL Immature Gran # (Auto) (0.01-0.20) K/uL Sodium (136-145) mmol/L Potassium (3.5-5.1) mmol/L Chloride (98-107) mmol/L Carbon Dioxide (21-32) mmol/L Anion Gap (3-11) BUN (6-23) mg/dl Creatinine (0.6-1.2) mg/dl Est Cr Clr Drug Dosing Est GFR ( Amer) ml/min Est GFR (Non-Af Amer) ml/min BUN/Creatinine Ratio (10-20) Glucose (70-99(Fasting)) mg/dl POC Glucose 57 L* (70-99) mg/dl Calcium (8.5-10.1) mg/dl Magnesium (1.7-2.4) mg/dl Total Bilirubin (0.2-1.0) mg/dl AST (13-39) U/L ALT (7-52) U/L Alkaline Phosphatase (34-104) U/L Troponin I High Sens (0-14) pg/ml Total Protein (6.0-8.3) gm/dl Albumin (3.4-5.0) gm/dl Globulin (2.5-4.0) gm/dl Albumin/Globulin Ratio (0.9-2) SARS-CoV-2 (PCR) POSITIVE A* (Negative) Influenza Type A (PCR) Negative (Neg) Influenza Type B (PCR) Negative (Neg) RSV (RT-PCR) Negative (Neg) Administered Medications Dextrose (D10w) 1,000 mls @ 40 mls/hr IV .Q24H ANDREA Stop: 12/16/22 19:14 Last Admin: 11/16/22 19:15 Dose: Not Given Documented By: ASW Discontinued Medications Albuterol (Albut/Ipratrop 3mg/0.5mg Neb 3 Ml Vial) 12 ml NEB ONE ONE; Protocol Stop: 11/16/22 14:53 Last Admin: 11/16/22 15:31 Dose: 12 ml Documented By: KMS Dexamethasone Sodium Phosphate (DexamethasonePf 10 Mg/Ml Vial) 6 mg IV NOW ONE Stop: 11/16/22 14:53 Last Admin: 11/16/22 15:22 Dose: 6 mg Documented By: AP Dextrose (Dextrose 50% 50 Ml Syringe) 25 ml IV NOW STA Stop: 11/16/22 16:30 Last Admin: 11/16/22 17:02 Dose: 25 ml Documented By: TW Dextrose (Dextrose 10% 1,000 Ml Bag) Confirm Administered Dose 1,000 ml IV .STK- MED ONE Stop: 11/16/22 19:11 Last Admin: 11/16/22 19:15 Dose: 1,000 ml Documented By: JAG Diltiazem HCl (Diltiazem Hcl 5 Mg/Ml 5 Ml Vial) 20 mg IV NOW STA Stop: 11/16/22 15:02 Last Admin: 11/16/22 15:22 Dose: 20 mg Documented By: CHRISTIE Co-signed By: RACHELE Diphenhydramine HCl (Diphenhydramine 50 Mg/Ml Vial) 25 mg IV NOW STA Stop: 11/16/22 14:55 Last Admin: 11/16/22 15:22 Dose: 25 mg Documented By: CHRISTIE Dextrose/Sodium Chloride (D5w And Nss) 1,000 mls @ 80 mls/hr IV .[id number] ANDREA Stop: 12/16/22 18:44 Last Infusion: 11/16/22 19:11 Dose: 0 mls/hr Documented By: Admin: 11/16/22 18:53 Dose: 80 mls/hr Documented By: RORY Ioversol (Optiray 320 500ml) 106 ml IV ONCE ONE Stop: 11/16/22 16:32 Last Admin: 11/16/22 16:36 Dose: 106 ml Documented By: KIERAN Imaging Data Radiologist's Impression: Chest X-Ray 11/16/22 14:45 XR chest 1V portable HISTORY: 81 years-old Female Dyspnea acute shortness of breath COMPARISON: 05/31/2022 TECHNIQUE: AP view of the chest FINDINGS: Cardiac silhouette is enlarged. Atrial septal occlusion device. No pneumothorax. Chronic blunting of the costophrenic angles. Mild linear subsegmental atelectasis versus scarring. Degenerative changes of the shoulders and spine. IMPRESSION: Cardiomegaly without acute process. ACT 112: Negative or not required by law. The above report was generated using voice recognition software. It may contain grammatical, syntax or spelling errors. Electronically signed by: Gabe Aviles M.D. 11/16/2022 3:17 PM Chest CTA 11/16/22 14:53 CT angio chest PE protocol CT DOSE: 636.65 mGy.cm HISTORY: 81 years-old Female with PE. Acute shortness of breath. COVID Positive. TECHNIQUE: Multiple CTA images of the chest were obtained after the intravenous administration of 98 ml Optiray. Coronal and sagittal MIPS were obtained from the axial data set and were submitted for review. All measurements were obtained according to NASCET criteria. A dose lowering technique was utilized adhering to the principles of ALARA. COMPARISON: CT abdomen and pelvis 07/22/2022 FINDINGS: CTA: Moderate cardiomegaly without pericardial effusion. Left atrial exclusion device. Moderate coronary artery calcifications. Atherosclerosis of the thoracic aorta without aneurysm. Dilated main pulmonary artery, 4.2 cm. The segmental and subsegmental pulmonary arterial branches are not well evaluated secondary to contrast bolus timing and respiratory motion artifact. No central pulmonary emboli identified. CT CHEST: No thyroid nodule. No lymphadenopathy identified. No pneumothorax, pleural effusion or overt pulmonary edema. 4 mm subpleural solid nodule of the right upper lobe, image 212. A few additional scattered 3-4 mm nodular foci the bilateral lungs with mild tree-in-bud nodules of the basal right lower lobe and right upper lobe. Subsegmental linear bibasilar consolidation. Central airways are patent. Mild bronchial wall thickening. 1.8 cm left gland adenoma. Unremarkable soft tissues. Degenerative changes of the shoulders and spine. IMPRESSION: 1. Cardiomegaly without pulmonary emboli identified. 2. Suggestion of pulmonary arterial hypertension. 3. Scattered tree-in-bud nodules within the right upper and lower lobes are suggestive of an infectious or inflammatory bronchiolitis. Additional scattered pulmonary nodules measuring 3-4 mm also likely infectious or inflammatory. 4. No lymphadenopathy. Please refer to below summary of Fleischner criteria recommendations for follow- up of incidental CT nodules (Sammi Thompson, Guidelines for management of small pulmonary nodules detected on CT scans: A statement from the Fleischner S ociety, Radiology 237: [phone].) SOLID NODULES Multiple nodules size: <6 mm * Low risk patients: no routine follow-up * high risk patients: optional CT at 12 months Note: newly detected indeterminate nodule in persons 35 years of age or older. * Low risk patients: minimal or absent history of smoking and/or other known risk factors * high risk patients: history of smoking or of other known risk factors (e.g. first degree relative with lung cancer, or exposure to asbestos, radon, uranium) * if a nodule up to 8 mm is partly solid or is ground glass further follow-up is required after 24 months to exclude possible slow growing adenocarcinoma (ANAIS) ACT 112: Negative or not required by law. The above report was generated using voice recognition software. It may contain grammatical, syntax or spelling errors. Electronically signed by: Gabe Aviles M.D. 11/16/2022 4:51 PM Discharge Plan Visit Data Chief Complaint: Shortness of Breath/Dyspnea Stated Complaint: HYPOGLYCEMIA, SOB ED Provider: Anna Walden Discharge Problem: Acute exacerbation of chronic obstructive pulmonary disease (COPD), COVID-19, Atrial fibrillation with RVR, Hypoxia Patient Disposition: Admitted As Inpatient Condition: Fair Forms Stand Alone Forms: [employer] Prescriptions Prescriptions: No Action albuterol sulfate [Ventolin HFA] 90 mcg/actuation HFA aerosol inhaler 2 puff INHALATION QID PRN (Reason: Shortness Of Breath) Qty: 6.7 11RF sertraline 25 mg tablet 25 mg PO DAILY aspirin [Kenzie Low Dose Aspirin] 81 mg tablet,delayed release (DR/EC) 81 mg PO DAILY dicyclomine 20 mg tablet 20 mg PO DAILY spironolactone 25 mg tablet 12.5 mg PO MOWEFR Rx Instructions: MON, WED, & FRI. atorvastatin 40 mg Tablet 40 mg PO HS docusate sodium 100 mg Capsule 100 mg PO BID cholecalciferol (vitamin D3) [Vitamin D3] 1,000 unit Capsule 2,000 unit PO QAM ferrous sulfate [iron] 325 mg (65 mg iron) tablet 325 mg PO QAM albuterol sulfate 2.5 mg /3 mL (0.083 %) Solution For Nebulization 2.5 mg INHALATION BID PRN (Reason: .WORSENING ASTHMA) Lumigan 0.01 % drops 1 drp OPB HS furosemide 40 mg tablet 40 mg PO BID potassium chloride [Klor-Con M20] 20 mEq tablet,ER particles/crystals 20 meq PO DAILY Combivent Respimat 20-100 mcg/actuation mist 1 puff INHALATION QID metoprolol succinate 25 mg tablet extended release 24 hr 12.5 mg PO DAILY methimazole 5 mg tablet 5 mg PO DAILY sucralfate 1 gram Tablet 1 g PO ACHS glimepiride 2 mg tablet 2 mg PO DAILY pantoprazole 40 mg Tablet,Delayed Release (Dr/Ec) 40 mg PO DAILY dorzolamide 2 % Drops 1 drp ophthalmic (eye) BID oxycodone 5 mg Tablet 5 mg PO Q4H PRN (Reason: Pain) enoxaparin [Lovenox] 40 mg/0.4 mL Syringe 40 mg SUBCUT DAILY Paxlovid (EUA) 300 mg (150 mg x 2)-100 mg Tablets,Dose Pack 0 ea PO .COMPLEX Rx Instructions: take TWO 150 mg tablets of nirmatrelvir with ONE 100 mg tablet of ritonavir twice daily for 5 days Referrals Referrals: Marcela Pinto MD [Primary Care Provider] -
--- NOTE | 2022-11-16 15:18 | XRay Report ---
XR chest 1V portable HISTORY: 81 years-old Female Dyspnea acute shortness of breath COMPARISON: 05/31/2022 TECHNIQUE: AP view of the chest FINDINGS: Cardiac silhouette is enlarged. Atrial septal occlusion device. No pneumothorax. Chronic blunting of the costophrenic angles. Mild linear subsegmental atelectasis versus scarring. Degenerative changes o f the shoulders and spine. IMPRESSION: Cardiomegaly without acute process. ACT 112: Negative or not required by law. The above report was generated using voice recognition software. It may contain grammatical, syntax o r spelling errors. Electronically signed by: Gabe Aviles M.D. 11/16/2022 3:17 PM
[2022-11-16 15:54] LABS: Albumin Level 3.5 gm/dl (3.4-5.0); Anion Gap 6 (3-11); Bilirubin,Total 0.3 mg/dl (0.2-1.0); Calcium 9.2 mg/dl (8.5-10.1); Carbon Dioxide 38 mmol/L (21-32); Chloride 85 mmol/L (98-107); Magnesium 1.7 mg/dl (1.7-2.4); Potassium 3.7 mmol/L (3.5-5.1); Sodium 129 mmol/L (136-145)
[2022-11-16 16:00] LABS: Alanine Aminotransferase 8 U/L (7-52); Albumin Globulin Ratio 1.1 (0.9-2); Alkaline Phosphatase 89 U/L (34-104); Aspartate Aminotransferase 15 U/L (13-39); BUN Creatinine Ratio 15.9 (10-20); Blood Urea Nitrogen 18 mg/dl (6-23); Est GFR (African American) 52.1 ml/min; Est GFR (Non-African American) 44.9 ml/min; Globulin 3.2 gm/dl (2.5-4.0); Glucose 61 mg/dl (70-99(Fasting)); Total Protein 6.7 gm/dl (6.0-8.3); Troponin I High Sensitivity 19.6 pg/ml (0-14)
[2022-11-16 16:06] LABS: Basophils # (auto) 0.04 K/uL (0-0.2); Basophils % (auto) 0.3 %; Eosinophils # (auto) 0.16 K/uL (0-0.50); Eosinophils % (auto) 1.4 %; Hematocrit (blood only) 32.1 % (37.0-47.0); Hemoglobin 10.3 g/dl (12.0-16.0); Immature Granulocytes % (auto) 1.7 %; Lymphocytes # (auto) 0.84 K/uL (1.2-3.4); Lymphocytes % (auto) 7.3 %; Mean Corpuscular Hemoglobin 27.8 pg (25.0-34.0); Mean Corpuscular Hgb Conc 32.1 g/dL (32.0-36.0); Mean Corpuscular Volume 86.5 fL (80.0-100.0); Mean Platelet Volume 10.1 fL (9.4-12.4); Monocytes # (auto) 2.12 K/uL (0.11-0.59); Monocytes % (auto) 18.4 %; Neutrophils # (auto) 8.16 K/uL (1.40-6.50); Neutrophils % (auto) 70.9 %; Platelet Count 437 K/uL (130-400); RDW Coefficient of Variation 14.1 % (11.5-14.5); RDW Standard Deviation 44.7 fL (36.4-46.3); Red Blood Count 3.71 M/uL (4.20-5.40); White Blood Count 11.52 K/ul (4.8-10.8)
[2022-11-16] MEDS ORDERED: DEXTROSE 50% 50 ML SYRINGE IV STA ×2 (16:29→20:35)
[2022-11-16] MEDS ORDERED: OPTIRAY 320 500ml IV ONE (16:31)
[2022-11-16 16:35] LABS: Influenza A virus by PCR Negative (Neg); Influenza B virus by PCR Negative (Neg); RSV by PCR Negative (Neg)
--- NOTE | 2022-11-16 16:53 | CT Scan Report ---
CT angio chest PE protocol CT DOSE: 636.65 mGy.cm HISTORY: 81 years-old Female with PE. Acute shortness of breath. COVID Positive. TECHNIQUE: Multiple CTA images of the chest were obtained after the intravenous administration of 98 ml Optiray. Coronal and sagittal MIPS were obtained from the axial data set and were submitted for [employer]. All measurements were obtained according to NASCET criteria. A dose lowering technique was ut ilized adhering to the principles of ALARA. COMPARISON: CT abdomen and pelvis 07/22/2022 FINDINGS: CTA: Moderate cardiomegaly without pericardial effusion. Left atrial exclusion device. Moderate coronary a rtery calcifications. Atherosclerosis of the thoracic aorta without aneurysm. Dilated main pulmonary artery, 4.2 cm. The segmental and subsegmental pulmonary arterial branches are not well evaluated sec ondary to contrast bolus timing and respiratory motion artifact. No central pulmonary emboli identifi ed. CT CHEST: No thyroid nodule. No lymphadenopathy identified. No pneumothorax, pleural effusion or overt pulmonar y edema. 4 mm subpleural solid nodule of the right upper lobe, image 212. A few additional scattered 3-4 mm nodular foci the bilateral lungs with mild tree-in-bud nodules of the basal right lower lobe a nd right upper lobe. Subsegmental linear bibasilar consolidation. Central airways are patent. Mild br onchial wall thickening. 1.8 cm left gland adenoma. Unremarkable soft tissues. Degenerative changes of the shoulders and spine . IMPRESSION: 1. Cardiomegaly without pulmonary emboli identified. 2. Suggestion of pulmonary arterial hypertension. 3. Scattered tree-in-bud nodules within the right upper and lower lobes are suggestive of an infectio us or inflammatory bronchiolitis. Additional scattered pulmonary nodules measuring 3-4 mm also likely infectious or inflammatory. 4. No lymphadenopathy. Please refer to below summary of Fleischner criteria recommendations for follow-up of incidental CT n odules (Sammi Thompson, Guidelines for management of small pulmonary nodules detected on CT scans: A sta tement from the Fleischner Society, Radiology 237: [id number].) SOLID NODULES Multiple nodules size: <6 mm * Low risk patients: no routine follow-up * high risk patients: optional CT at 12 months Note: newly detected indeterminate nodule in persons 35 years of age or older. * Low risk patients: minimal or absent history of smoking and/or other known risk factors * high risk patients: history of smoking or of other known risk factors (e.g. first degree relative with lung cancer, or exposure to asbestos, radon, uranium) * if a nodule up to 8 mm is partly solid or is ground glass further follow-up is required after 24 m onths to exclude possible slow growing adenocarcinoma (ANAIS) ACT 112: Negative or not required by law. The above report was generated using voice recognition software. It may contain grammatical, syntax o r spelling errors. Electronically signed by: Gabe Aviles M.D. 11/16/2022 4:51 PM
[2022-11-16 16:55] LABS: SARS CoV2 RNA(COVID-19) Ceph POSITIVE (Negative)
--- NOTE | 2022-11-16 18:42 | History & Physical Report ---
Date of Service November 16, 2022 Assessment & Plan (1) Hypoglycemia: Plan: Admit to telemetry Patient presenting from [facility] for evaluation of altered mental status and hypoglycemia In the ED, glucose 61 and treated with D50. Patient's mental status currently at baseline. Patient taking glimepiride 2 mg daily, last dose 2/3 AM Hypoglycemia likely due to glimepiride in combination with poor appetite Given persistent hypoglycemia, will start D10 infusion and q2h BSGs (2) Acute on chronic respiratory failure with hypoxia: (3) COPD (chronic obstructive pulmonary disease): (4) COVID-19: Plan: Patient hypoxic on usual 2 L at 86%. Currently requiring 4 L of oxygen via nasal cannula. Tested positive for COVID-19 yesterday at [facility]. Started on Paxlovid. In the ED, CTA chest negative for pulmonary embolism Given hypoxia, will start remdesivir and IV dexamethasone (5) Atrial fibrillation with RVR: Plan: On presentation, heart rate in the 130s, received diltiazem 20 mg IV with improvement in heart rate History of paroxysmal atrial fibrillation s/p watchman device Continue home dose metoprolol for now (6) Hyponatremia: Plan: Na+ 129 --likely due to poor p.o. intake in combination with diuretic use Gentle IVF, hold diuretics, follow BMP (7) Chronic HFrEF (heart failure with reduced ejection fraction): (8) NICM (nonischemic cardiomyopathy): Plan: EF 40-45% on echo 06/2021 Holding diuretics as above Update echo, monitor volume status closely (9) S/P colon resection: Plan: Recently admitted to [facility] for elective colon resection due to recurrent diverticulitis and colovesical fistula Wound care nurse consult to follow surgical wound Had prophylactic ureteral stents placed which remained in place. Renal ultrasound to check for placement. (10) Subclinical hyperthyroidism: Plan: Check TSH Continue methimazole (11) Diabetes mellitus, type 2: Plan: Hgb A1c 6.8 05/2022 Avoiding all hypoglycemic agents due to hypoglycemia as above Would allow for more labile control due to patient's advanced age DVT PROPHYLAXIS SQ Lovenox History of Present Illness Chief Complaint: Altered mental status Primary Care Provider: Marcela Pinto MD 81-year-old female with PMH DM type II, chronic hypoxic respiratory failure on 2 L of oxygen, asthma, COPD, HFrEF, HTN, paroxysmal atrial fibrillation s/p watchman device, and other problems listed below who presents to the ED from [facility] for evluation of altered mental status. Patient recently admitted to [facility] 10/31 through 11/11 for elective colon resection for recurrent diverticulitis and colovesical fistula. Patient was discharged to [facility] for rehab. Patient has been doing generally well since at [facility] She developed increasing shortness of breath yesterday and tested positive for COVID-19. Patient was started on Paxlovid. Patient also developed episodes of hypoglycemia last evening. Patient takes glimepiride 2 mg daily with last dose being yesterday morning. This morning, when patient's daughter came to visit he r, she found her to be minimally responsive. Patient was again found to be hypoglycemic in the 40s. EMS was called and patient was brought to the ED for further evaluation. No seizure-like activity reported. Patient denies chest pain and palpitations. Reports she has had a poor appetite recently however denies abdominal pain, nausea, vomiting, diarrhea. No urinary symptoms. In the ED, patient glucose was found to be 61. She was given D50. Glucose again dropped to 57. Patient was given orange juice and a sandwich. Patient was also found to be hypoxic on usual 2 L 86%. She is currently requiring 4 L of oxygen via nasal cannula. CTA chest negative for pulmonary embolism, shows scattered tree-in-bud nodules. Patient was also given IV dexamethasone. She was in atrial fibrillation with RVR on presentation and given diltiazem 20 mg IV with improvement in heart rate. Allergies Allergy/AdvReac Type Severity Reaction Status Date / Time salmon oil Allergy Severe HIVES-REDDENED Verified 11/16/22 19:24 ALL OVER Iodinated Contrast Media Allergy Intermediate HIVES-GI Verified 11/16/22 19:24 SYMPTOMS valsartan Allergy Intermediate FAST HEART Verified 11/16/22 19:24 BEAT bupropion AdvReac Mild GI SYMPTOMS Verified 11/16/22 19:24 enalapril AdvReac Mild GI SYMPTOMS Verified 11/16/22 19:24 escitalopram AdvReac Mild GI SYMPTOMS Verified 11/16/22 19:24 metoprolol AdvReac Mild LOWERS Verified 11/16/22 19:24 PULSE RATE verapamil AdvReac Mild GI UPSET, Verified 11/16/22 19:24 fast heart rate Home Medications Medication Instructions Recorded Confirmed Type atorvastatin 40 mg tablet 40 mg PO HS 06/23/19 11/16/22 History cholecalciferol (vitamin D3) 25 2,000 unit PO QAM 06/23/19 11/16/22 History mcg (1,000 unit) capsule (Vitamin D3) docusate sodium 100 mg capsule 100 mg PO BID 06/23/19 11/16/22 History albuterol sulfate 2.5 mg/3 mL 2.5 mg inhalation BID PRN 09/25/19 11/16/22 History (0.083 %) solution for nebulization .WORSENING ASTHMA bimatoprost 0.01 % eye drops 1 drp OPB HS 09/25/19 11/16/22 History (Lumigan) ferrous sulfate 325 mg (65 mg 325 mg PO QAM 02/23/20 11/16/22 History iron) tablet (iron) aspirin 81 mg tablet,delayed 81 mg PO DAILY 02/05/21 11/16/22 History release (Kenzie Low Dose Aspirin) ipratropium 20 mcg-albuterol 100 1 puff inhalation QID 04/09/21 11/16/22 History mcg/actuation mist for inhalation (Combivent Respimat) potassium chloride 20 mEq 20 meq PO DAILY 04/09/21 11/16/22 History tablet,extended release(part/cryst) (Klor-Con M) dicyclomine 20 mg tablet 20 mg PO DAILY 01/14/22 11/16/22 History spironolactone 25 mg tablet 12.5 mg PO MOWEFR 01/14/22 11/16/22 History sertraline 25 mg tablet 25 mg PO DAILY 03/13/22 11/16/22 History albuterol sulfate 90 mcg/actuation 2 puff inhalation QID PRN 05/03/22 11/16/22 Rx aerosol inhaler (Ventolin HFA) Shortness Of Breath #6.7 grams furosemide 40 mg tablet 40 mg PO BID 05/31/22 11/16/22 History methimazole 5 mg tablet 5 mg PO DAILY 07/17/22 11/16/22 History metoprolol succinate 25 mg 12.5 mg PO DAILY 07/17/22 11/16/22 History tablet,extended release 24 hr dorzolamide 2 % eye drops 1 drp ophthalmic (eye) BID 11/16/22 11/16/22 History enoxaparin 40 mg/0.4 mL 40 mg subcut DAILY 11/16/22 11/16/22 History subcutaneous syringe (Lovenox) glimepiride 2 mg tablet 2 mg PO DAILY 11/16/22 11/16/22 History nirmatrelvir 300 mg (150 mg 0 ea PO .COMPLEX 11/16/22 11/16/22 History x2)-ritonavir 100 mg tablet,dose pack(EUA) (Paxlovid) oxycodone 5 mg tablet 5 mg PO Q4H PRN Pain 11/16/22 11/16/22 History pantoprazole 40 mg tablet,delayed 40 mg PO DAILY 11/16/22 11/16/22 History release sucralfate 1 gram tablet 1 g PO ACHS 11/16/22 11/16/22 History Past Med/Surg History Medical History (Updated 11/16/22 @ 19:23 by NIECY Trejo) Aortic valve stenosis, mild Asthma Chris-tachy syndrome Chronic atrial fibrillation Chronic diastolic CHF (congestive heart failure) Chronic HFrEF (heart failure with reduced ejection fraction) Chronic respiratory failure with hypoxia and hypercapnia Colovesical fistula COPD (chronic obstructive pulmonary disease) Diabetes mellitus, type 2 Diverticulitis large intestine Esophageal reflux Glaucoma of both eyes Hyperlipidemia Hypertension Lower GI bleed NICM (nonischemic cardiomyopathy) On home oxygen therapy 2L N/C at all times and 4 L N/C at night JORDAN (obstructive sleep apnea) Sleep apnea Subclinical hyperthyroidism Subepithelial mass of stomach Surgical History (Updated 11/16/22 @ 19:24 by NIECY Trjeo) H/O colonoscopy "04/2014 - diverticular disease throughout colon, internal hemorrhoids, polyp removed" History of appendectomy History of cardiac cath "YEARS AGO"NO BLOCKAGES/NO STENTS-F/U DR THOMSON History of cholecystectomy History of dilatation and curettage History of esophagogastroduodenoscopy (EGD) "04/2014 - normal" History of incisional hernia repair History of tooth extraction all teeth Hx of small bowel obstruction "11/2017 - Seen [facility] - surgical intervention" Nausea and vomiting after administration of anesthetic agent Presence of Watchman left atrial appendage closure device 11/2019 @ [facility] Dr. Velez S/P colon resection Status post tonsillectomy and adenoidectomy Status post tubal ligation Family History Mother Breast cancer Father Heart disease Brother COPD (chronic obstructive pulmonary disease) Aunt Diabetes Son JORDAN (obstructive sleep apnea) Daughter Asthma Other No family history of adverse response to anesthesia No pertinent family history in first degree relatives 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 Smoking Status: Never smoker Second Hand Exposure: No; Hx Alcohol Use: No Hx Substance Use: No Preferred Language: Romansh Communication Ability: Effective It Administrator Required: No Beliefs That Will Affect Care: None marital status: / Current Living Situation: Alone Feels Safe at Home: Yes Assistive Devices: Cane, Glasses, Oxygen - Continuous and Walker Review of Systems Review of Systems: ROS per HPI, all other systems reviewed and negative Physical Exam Physical Exam: Please refer to Dr. Rubio's addendum for physical exam Results & Data Results & Data ([facility]) Vital Signs (Past 12 Hours) Vital Signs Temp Pulse Pulse Pulse Resp BP Pulse Ox 11/16/22 17:52 102 H 22 100 11/16/22 17:45 106 H 22 99/70 L 95 11/16/22 15:48 98 H 28 H 94/67 L 99 11/16/22 15:47 97 11/16/22 15:32 86 22 97 11/16/22 15:02 129/80 11/16/22 14:58 97 11/16/22 14:39 37 C 136 H 38 H 86 L O2 Del Method O2 Flow Rate 11/16/22 17:52 Oxymask 4 11/16/22 17:45 Oxymask 6 11/16/22 15:48 Oxymask 4 11/16/22 15:47 Oxymask 4 11/16/22 15:32 Oxymask 4 11/16/22 15:02 11/16/22 14:58 Oxymask 4 11/16/22 14:39 Room Air Laboratory Results Short CBC 11/16/22 Range/Units 15:05 WBC 11.52 H (4.8-10.8) K/ul Hgb 10.3 L (12.0-16.0) g/dl Hct 32.1 L (37.0-47.0) % Plt Count 437 H (130-400) K/uL BMP 11/16/22 15:05 Sodium 129 L Potassium 3.7 Chloride 85 L Carbon Dioxide 38 H BUN 18 Creatinine 1.13 Glucose 61 L Calcium 9.2 Liver Function 11/16/22 Range/Units 15:05 Total Bilirubin 0.3 (0.2-1.0) mg/dl AST 15 (13-39) U/L ALT 8 (7-52) U/L Alkaline Phosphatase 89 (34-104) U/L Albumin 3.5 (3.4-5.0) gm/dl Diagnostic Findings Chest X-Ray 11/16/22 14:45 XR chest 1V portable HISTORY: 81 years-old Female Dyspnea acute shortness of breath COMPARISON: 05/31/2022 TECHNIQUE: AP view of the chest FINDINGS: Cardiac silhouette is enlarged. Atrial septal occlusion device. No pneumothorax. Chronic blunting of the costophrenic angles. Mild linear subsegmental atelectasis versus scarring. Degenerative changes of the shoulders and spine. IMPRESSION: Cardiomegaly without acute process. ACT 112: Negative or not required by law. The above report was generated using voice recognition software. It may contain grammatical, syntax or spelling errors. Electronically signed by: aGbe Aviles M.D. 11/16/2022 3:17 PM Chest CTA 11/16/22 14:53 CT angio chest PE protocol CT DOSE: 636.65 mGy.cm HISTORY: 81 years-old Female with PE. Acute shortness of breath. COVID Positive. TECHNIQUE: Multiple CTA images of the chest were obtained after the intravenous administration of 98 ml Optiray. Coronal and sagittal MIPS were obtained from the axial data set and were submitted for review. All measurements were obtained according to NASCET criteria. A dose lowering technique was utilized adhering to the principles of ALARA. COMPARISON: CT abdomen and pelvis 07/22/2022 FINDINGS: CTA: Moderate cardiomegaly without pericardial effusion. Left atrial exclusion device. Moderate coronary artery calcifications. Atherosclerosis of the thoracic aorta without aneurysm. Dilated main pulmonary artery, 4.2 cm. The segmental and subsegmental pulmonary arterial branches are not well evaluated secondary to contrast bolus timing and respiratory motion artifact. No central pulmonary emboli identified. CT CHEST: No thyroid nodule. No lymphadenopathy identified. No pneumothorax, pleural effusion or overt pulmonary edema. 4 mm subpleural solid nodule of the right upper lobe, image 212. A few additional scattered 3-4 mm nodular foci the bilateral lungs with mild tree-in-bud nodules of the basal right lower lobe and right upper lobe. Subsegmental linear bibasilar consolidation. Central airways are patent. Mild bronchial wall thickening. 1.8 cm left gland adenoma. Unremarkable soft tissues. Degenerative changes of the shoulders and spine. IMPRESSION: 1. Cardiomegaly without pulmonary emboli identified. 2. Suggestion of pulmonary arterial hypertension. 3. Scattered tree-in-bud nodules within the right upper and lower lobes are suggestive of an infectious or inflammatory bronchiolitis. Additional scattered pulmonary nodules measuring 3-4 mm also likely infectious or inflammatory. 4. No lymphadenopathy. Please refer to below summary of Fleischner criteria recommendations for follow- up of incidental CT nodules (Sammi Thompson, Guidelines for management of small pulmonary nodules detected on CT scans: A statement from the Fleischner Society, Radiology 237: [phone].) SOLID NODULES Multiple nodules size: <6 mm * Low risk patients: no routine follow-up * high risk patients: optional CT at 12 months Note: newly detected indeterminate nodule in persons 35 years of age or older. * Low risk patients: minimal or absent history of smoking and/or other known risk factors * high risk patients: history of smoking or of other known risk factors (e.g. first degree relative with lung cancer, or exposure to asbestos, radon, uranium) * if a nodule up to 8 mm is partly solid or is ground glass further follow-up is required after 24 months to exclude possible slow growing adenocarcinoma (ANAIS) ACT 112: Negative or not required by law. The above report was generated using voice recognition software. It may contain grammatical, syntax or spelling errors. Electronically signed by: Gabe Aviles M.D. 11/16/2022 4:51 PM Code Status & VTE Plan VTE Prophylaxis Plan VTE Prophylaxis will be ordered: Yes Supervising Physician Co-Signing Physician Notes Patient seen and examined independently. Agree with Georgette PEMBERTON. 81-year-old female with complicated medical/surgical history presents with hypoglycemia due to glimepiride, COVID-19 infection. She was alert oriented x3; not in any distress. Blood glucose in 60s on presentation. Started on D10 NS at 40 cc/h, every 2 blood glucose check For COVID 19 infection; oxygen requirement similar to baseline. CT angio scattered tree-in-bud nodules with Right upper and lower lobes. Started on Remdisvir and Decadron. Monitor for respiratory distress. (1) COPD (chronic obstructive pulmonary disease) COPD type: COPD with acute exacerbation Qualified Code(s): J44.1 - Chronic obstructive pulmonary disease with (acute) exacerbation
[2022-11-16] MEDS ORDERED: D5W AND NSS 1,000 ML IV SCH (18:45)
[2022-11-16] MEDS ORDERED: DEXTROSE 10% 1,000 ML BAG IV ONE (19:10)
[2022-11-16] MEDS ORDERED: DEXTROSE 10% 1,000 ML IV SCH (19:15)
[2022-11-16] MEDS ORDERED: REMDESIVIR 200 MG in SODIUM CHLORIDE 0.9% 210 ML IV STA (20:18)
[2022-11-16] MEDS ORDERED: Patient's HEIGHT &/or WEIGHT Needed SCH (20:30)
[2022-11-16] MEDS: oxyCODONE HCL IR 5 MG TAB (IMMEDIATE RELEASE) PO PRN (20:41)
[2022-11-16] MEDS ORDERED: IPRATROPIUM BROMIDE/ALBUTEROL respimat INH INH SCH (21:00)
[2022-11-16] MEDS: ENOXAPARIN INJ 40 MG/0.4 ML SYR SQ SCH (21:12)
[2022-11-16] MEDS: DOCUSATE SODIUM 100 MG CAP PO SCH (21:13)
[2022-11-16] MEDS: DORZOLAMIDE HCL 2% OPH SOLN 10 ML BTL OP SCH (21:13)
[2022-11-16] MEDS: ATORVASTATIN 40 MG TAB PO SCH (21:13)
[2022-11-16] MEDS: SUCRALFATE 1 GM TAB PO SCH (21:13)
[2022-11-16] MEDS: BIMATOPROST 0.01% OP SOLN 2.5 ML BTL OP SCH (21:44)
--- NOTE | 2022-11-16 22:46 | Ultrasound Report ---
RENAL ULTRASOUND HISTORY: Follow up study in a patient with history of ureteral stents hx BL ureteral stenting COMPARISON: CT abdomen and pelvis 07/22/2022 FINDINGS: Right kidney: 9.7 No hydronephrosis. Cyst of the right kidney measure up to 2.4 cm. Normal corticomed ullary differentiation and cortical thickness. Left kidney: 9.6 No hydronephrosis. Normal corticomedullary differentiation and cortical thickness. Bladder: Decompressed urinary bladder. IMPRESSION: 1. No renal calculi or hydronephrosis identified. 2. Bilateral renal cysts redemonstrated. ACT 112: Negative or not required by law. Electronically signed by: Gabe Aviles M.D. 11/16/2022 10:43 PM
[2022-11-16] MEDS: ACETAMINOPHEN 325 MG TAB PO PRN (23:05)
[2022-11-16] MEDS: guaiFENesin SUGAR FREE 200 MG/10 ML UDC PO PRN (23:06)
[2022-11-16] MEDS ORDERED: MoRPHine SULFATE 2 MG/ML CARP IV STA (23:14)
[2022-11-17 01:34] LABS: Appearance Urine Cloudy (Clear); Bacteria Urine Automated 4+ (Negative); Bilirubin Urine Negative (Negative); Blood Urine Negative (Negative); Color Urine Yellow; Epithelial Cell Urine Auto 0-5 /lpf (0-5); Glucose Urine UA Negative (Negative); Ketones Urine Negative (Negative); Leukocyte Esterase Urine 3+ (Negative); Nitrite Urine Negative (Negative); Protein Urine Negative (Negative); RBC Urine Automated 0-4 /hpf (0-4); Specific Gravity Urine 1.018 (1.000-1.030); Urobilinogen Urine Negative (Negative); WBC Urine Automated >30 /hpf (0-5); pH Urine 8.5 (4.5-7.5)
[2022-11-17] MEDS: oxyCODONE HCL IR 5 MG TAB (IMMEDIATE RELEASE) PO PRN ×4 (03:23→22:21)
[2022-11-17 03:25] LABS: Hematocrit (blood only) 26.8 % (37.0-47.0); Hemoglobin 8.8 g/dl (12.0-16.0); Mean Corpuscular Hemoglobin 28.4 pg (25.0-34.0); Mean Corpuscular Hgb Conc 32.8 g/dL (32.0-36.0); Mean Corpuscular Volume 86.5 fL (80.0-100.0); Mean Platelet Volume 9.9 fL (9.4-12.4); Platelet Count 342 K/uL (130-400); RDW Coefficient of Variation 14.1 % (11.5-14.5); RDW Standard Deviation 44.5 fL (36.4-46.3); White Blood Count 8.01 K/ul (4.8-10.8)
[2022-11-17 04:12] LABS: BUN Creatinine Ratio 15.9 (10-20); Calcium 9.7 mg/dl (8.5-10.1); Creatinine Clr Calc Pharmacy 38.4 ml/min; Est GFR (African American) 45.6 ml/min; Est GFR (Non-African American) 39.4 ml/min; Potassium 4.7 mmol/L (3.5-5.1)
[2022-11-17] MEDS: guaiFENesin SUGAR FREE 200 MG/10 ML UDC PO PRN (05:45)
[2022-11-17] MEDS: Albuterol HFA 8 GM Inhaler (Combivent Respimat P&T Subs) INH SCH ×4 (06:16→19:22)
[2022-11-17] MEDS: Ipratropium HFA Inhaler (Combivent Respimat P&T Subs) INH SCH ×4 (06:17→19:22)
[2022-11-17] MEDS: PANTOprazole 40 MG TAB PO SCH (06:38)
[2022-11-17] MEDS: SUCRALFATE 1 GM TAB PO SCH ×4 (06:40→21:06)
[2022-11-17] MEDS ORDERED: D5W AND NSS 1,000 ML IV SCH (07:30)
[2022-11-17] MEDS: dexAMETHasone 6 MG in SYRINGE 0 ML IV SCH (07:48)
[2022-11-17] MEDS: SERTRALINE HCL 50 MG TABLET PO SCH (07:48)
[2022-11-17] MEDS: DOCUSATE SODIUM 100 MG CAP PO SCH ×2 (07:49→21:04)
[2022-11-17] MEDS: FERROUS SULFATE 325 MG TAB PO SCH (07:50)
[2022-11-17] MEDS: ASPIRIN 81 MG ECTAB PO SCH (07:50)
[2022-11-17] MEDS: POTASSIUM CHLORIDE CRTAB 20 MEQ TABCR PO SCH (07:50)
[2022-11-17] MEDS: METOPROLOL SUCC 25MG EXT REL TAB PO SCH (07:50)
[2022-11-17] MEDS: DICYCLOMINE HCL 20 MG TAB PO SCH (07:50)
[2022-11-17] MEDS: methIMAzole 5 MG TABLET PO SCH (07:50)
[2022-11-17] MEDS: DORZOLAMIDE HCL 2% OPH SOLN 10 ML BTL OP SCH ×2 (07:51→21:04)
[2022-11-17] MEDS: PROMETHAZINE HCL 6.25 MG in SODIUM CHLORIDE 0.9% 50 ML IV PRN ×2 (08:00→22:21)
[2022-11-17] MEDS: guaiFENesin/DEXTROM SYRUP 100MG/10MG 5ML UDC PO PRN ×2 (10:30→21:35)
--- NOTE | 2022-11-17 10:35 | Electrocardiogram Report ---
Test Reason : Blood Pressure : / mmHG Vent. Rate : 112 BPM Atrial Rate : 127 BPM P-R Int : 000 ms QRS Dur : 132 ms QT Int : 362 ms P-R-T Axes : 000 -57 100 degrees QTc Int : 494 ms Poor data quality, interpretation may be adversely affected Atrial fibrillation with rapid ventricular response with premature ventricular or aberrantly conducte d complexes Left bundle branch block Abnormal ECG When compared with ECG of 18-JUL-2022 06:28, Left bundle branch block is now Present Confirmed by Mushtaq Addison ([id number]) on 11/17/2022 10:35:09 AM Referred By: Confirmed By:Mushtaq Addison
--- NOTE | 2022-11-17 10:45 | Electrocardiogram Report ---
Test Reason : Blood Pressure : / mmHG Vent. Rate : 087 BPM Atrial Rate : 080 BPM P-R Int : 000 ms QRS Dur : 130 ms QT Int : 402 ms P-R-T Axes : 000 -56 038 degrees QTc Int : 483 ms Atrial fibrillation Left axis deviation Non-specific intra-ventricular conduction block Cannot rule out Septal infarct , age undetermined Abnormal ECG When compared with ECG of 16-NOV-2022 14:46, (unconfirmed) Non-specific intra-ventricular conduction block has replaced Left bundle branch block Minimal criteria for Septal infarct are now Present Confirmed by Mushtaq Addison ([id number]) on 11/17/2022 10:44:56 AM Referred By: REFERRED SELF Confirmed By:Mushtaq Addison
--- NOTE | 2022-11-17 11:22 | Hospitalist Progress Note ---
Date of Service November 17, 2022 Assessment & Plan (1) Hypoglycemia: Plan: History of type 2 diabetes mellitus; most recent A1c as per outpatient lab 6.8. She is on glimepiride 2 mg daily; Patient had hypoglycemic episode which resulted in unresponsiveness. She was brought to the ED;. Her blood glucose level was 61. Was given D10 infusion overnight and every 2 blood glucose checks Her blood glucoses improved to 150s to 200. Plan; Currently on D5 normal saline at 80 cc/h. She is also on dexamethasone for COVID infection which will increase her blood glucose level. We will put her on NovoLog for now. Given patient's age and comorbidities; patient A1c goal would be 7.5 to 8%. A1c is pending. We will stop glimepiride at discharge. She will follow-up with her primary care doctor to discuss long-term management for her type 2 diabetes mellitus. (2) Acute on chronic respiratory failure with hypoxia: (3) COPD (chronic obstructive pulmonary disease): (4) COVID-19: Plan: Patient hypoxic on usual 2 L at 86%. Currently requiring 4 L of oxygen via nasal cannula. Tested positive for COVID-19 yesterday at [facility]. Started on Paxlovid. Patient had 4 doses of COVID-19 vaccine already In the ED, CTA chest negative for pulmonary embolism;scattered tree in bud nodules within right upper and lower lobe suggestive of infectious/inflammatory bronchiolitis. Plan; She is currently on dexamethasone 6 mg once daily and remdesivir. Her oxygen requirement has down trended to baseline. Provide supplemental oxygen as needed. (5) Atrial fibrillation with RVR: Plan: On presentation, heart rate in the 130s, received diltiazem 20 mg IV with improvement in heart rate History of paroxysmal atrial fibrillation s/p watchman device Continue home dose metoprolol for now Her ventricular rate has been in the range of 70s to 90s. (6) Hyponatremia: Plan: Sodium 129 on admission; down trended to 127 today after D10 infusion. Urine electrolytes, osmolarity and creatinine sent. Suspect hypovolemic hyponatremia given decreased oral intake. On D5 normal saline at 80 cc/h. Will obtain BMP in afternoon and tomorrow. (7) Chronic HFrEF (heart failure with reduced ejection fraction): (8) NICM (nonischemic cardiomyopathy): Plan: EF 40-45% on echo 06/2021 High-sensitivity troponin slightly elevated on admission; no delta difference. Likely demand ischemia. Holding diuretics for now. Will obtain repeat echocardiogram. Resume Lasix when appropriate. (9) Asymptomatic bacteriuria: (10) S/P colon resection: Plan: Recently admitted to [facility] for elective colon resection due to recurrent diverticulitis and colovesical fistula Wound care nurse consult to follow surgical wound. On examination; wound dressing looks clean dry and intact. Urinalysis shows greater than 30 WBC and 4+ bacteria. Patient denies any symptoms. Blood culture was sent yesterday; currently on empiric ceftriaxone. DC if blood culture is negative for 48 hours. Patient reports history of ureteral stent placed during her hospitalization in [facility]. Chart review shows she underwent cystoscopy with bilateral stent placement in November 01. Renal ultrasound does not show any hydronephrosis. Patient has follow-up appointment on November 26 with general surgery at [place]. Patient also has outpatient urology referral. (11) Subclinical hyperthyroidism: Plan: TSH WNL Continue methimazole Plan Full code DVT prophylaxis Heparin Dispositionpatient does not want to go back to [facility]. She states she will prefer to go to [facility]. PT OT ordered. Admission and Anticipated Discharge Date Admission Date: November 16, 2022 Subjective Patient seen and examined at bedside. She reports she is feeling much better compared to yesterday. Her blood glucose level has been around range of 150s to 200s with D10 and dexamethasone. Review of Systems Review of Systems: All systems reviewed & are unremarkable except as noted in Subjective Physical Exam Physical Exam: Constitutional: Awake, alert orient x3; not in any distress. Neck: trachea midline, no thyromegaly normal visual inspection Respiratory: Bilateral vesicular breath sound; decreased breath sound at bases. Cardiovascular: Irregular, no murmur, no edema Vessels: no JVD or carotid bruit Chest: normal inspection of chest Abdomen: Dressing intact over the incision; clean and dry. Musculoskeletal: no cyanosis or clubbing, extremities motor strength 5/5 Skin: no rashes, warm and dry normal turgor Neurologic: PERRL, EOMI, accommodation nl, no face palsy, no dysarthria CN's II- XI intact bilaterally and moves all extremities Psychiatric: A+Ox3, euthymic affect : deferred Results & Data Results & Data ([facility]) Vital Signs (Past 12 Hours) Vital Signs Temp Pulse Pulse Resp BP Pulse Ox O2 Del Method 11/17/22 11:00 36.7 C 76 16 122/72 97 Nasal Cannula 11/17/22 07:48 37.4 C 88 16 94/53 L 98 Nasal Cannula 11/17/22 07:00 101 H 11/17/22 06:17 78 18 99 Nasal Cannula 11/17/22 03:03 37 C 89 18 134/72 98 Nasal Cannula 11/16/22 23:22 37.1 C 91 H 18 111/74 99 Nasal Cannula O2 Flow Rate 11/17/22 11:00 2 11/17/22 07:48 2 11/17/22 07:00 11/17/22 06:17 3 11/17/22 03:03 2 11/16/22 23:22 3 Laboratory Results Laboratory Results WBC 8.01 K/ul (4.8-10.8) 11/17/22 03:07 RBC 3.10 M/uL (4.20-5.40) L 11/17/22 03:07 Hgb 8.8 g/dl (12.0-16.0) L 11/17/22 03:07 Hct 26.8 % (37.0-47.0) L 11/17/22 03:07 MCV 86.5 fL (80.0-100.0) 11/17/22 03:07 MCH 28.4 pg (25.0-34.0) 11/17/22 03:07 MCHC 32.8 g/dL (32.0-36.0) 11/17/22 03:07 RDW Std Deviation 44.5 fL (36.4-46.3) 11/17/22 03:07 RDW Coeff of Jesika 14.1 % (11.5-14.5) 11/17/22 03:07 Plt Count 342 K/uL (130-400) 11/17/22 03:07 MPV 9.9 fL (9.4-12.4) 11/17/22 03:07 Immature Gran % (Auto) 1.7 % 11/16/22 15:05 Neut % (Auto) 70.9 % 11/16/22 15:05 Lymph % (Auto) 7.3 % 11/16/22 15:05 [place] % (Auto) 18.4 % 11/16/22 15:05 Eos % (Auto) 1.4 % 11/16/22 15:05 Baso % (Auto) 0.3 % 11/16/22 15:05 Neut # (Auto) 8.16 K/uL (1.40-6.50) H 11/16/22 15:05 Lymph # (Auto) 0.84 K/uL (1.2-3.4) L 11/16/22 15:05 [place] # (Auto) 2.12 K/uL (0.11-0.59) H 11/16/22 15:05 Eos # (Auto) 0.16 K/uL (0-0.50) 11/16/22 15:05 Baso # (Auto) 0.04 K/uL (0-0.2) 11/16/22 15:05 Immature Gran # (Auto) 0.20 K/uL (0.01-0.20) 11/16/22 15:05 Sodium 127 mmol/L (136-145) L 11/17/22 03:07 Potassium 4.7 mmol/L (3.5-5.1) D 11/17/22 03:07 Chloride 87 mmol/L (98-107) L 11/17/22 03:07 Carbon Dioxide 36 mmol/L (21-32) H 11/17/22 03:07 Anion Gap 4 (3-11) 11/17/22 03:07 BUN 20 mg/dl (6-23) 11/17/22 03:07 Creatinine 1.26 mg/dl (0.6-1.2) H 11/17/22 03:07 Est Cr Clr Drug Dosing 38.4 ml/min 11/17/22 03:07 Est GFR ( Amer) 45.6 ml/min 11/17/22 03:07 Est GFR (Non-Af Amer) 39.4 ml/min 11/17/22 03:07 BUN/Creatinine Ratio 15.9 (10-20) 11/17/22 03:07 Glucose 160 mg/dl (70-99(Fasting)) H 11/17/22 03:07 POC Glucose 269 mg/dl (70-99) H 11/17/22 11:03 Calcium 9.7 mg/dl (8.5-10.1) 11/17/22 03:07 Magnesium 1.7 mg/dl (1.7-2.4) 11/16/22 15:05 Total Bilirubin 0.3 mg/dl (0.2-1.0) 11/16/22 15:05 AST 15 U/L (13-39) 11/16/22 15:05 ALT 8 U/L (7-52) 11/16/22 15:05 Alkaline Phosphatase 89 U/L (34-104) 11/16/22 15:05 Troponin I High Sens 32.1 pg/ml (0-14) H 11/17/22 03:07 Total Protein 6.7 gm/dl (6.0-8.3) 11/16/22 15:05 Albumin 3.5 gm/dl (3.4-5.0) 11/16/22 15:05 Globulin 3.2 gm/dl (2.5-4.0) 11/16/22 15:05 Albumin/Globulin Ratio 1.1 (0.9-2) 11/16/22 15:05 TSH 0.337 uIu/ml (0.300-4.500) 11/17/22 03:07 Urine Color Yellow 11/17/22 01:06 Urine Appearance Cloudy (Clear) A 11/17/22 01:06 Urine pH 8.5 (4.5-7.5) H 11/17/22 01:06 Ur Specific [place] 1.018 (1.000-1.030) 11/17/22 01:06 Urine Protein Negative (Negative) 11/17/22 01:06 Urine Glucose (UA) Negative (Negative) 11/17/22 01:06 Urine Ketones Negative (Negative) 11/17/22 01:06 Urine Blood Negative (Negative) 11/17/22 01:06 Urine Nitrite Negative (Negative) 11/17/22 01:06 Urine Bilirubin Negative (Negative) 11/17/22 01:06 Urine Urobilinogen Negative (Negative) 11/17/22 01:06 Ur Leukocyte Esterase 3+ (Negative) H 11/17/22 01:06 Urine WBC (Auto) >30 /hpf (0-5) H 11/17/22 01:06 Urine RBC (Auto) 0-4 /hpf (0-4) 11/17/22 01:06 U Hyaline Cast (Auto) 1-5 /lpf (0-5) 11/17/22 01:06 U Epithel Cells (Auto) 0-5 /lpf (0-5) 11/17/22 01:06 Urine Bacteria (Auto) 4+ (Negative) H 11/17/22 01:06 SARS-CoV-2 (PCR) POSITIVE (Negative) A* 11/16/22 Unknown Influenza Type A (PCR) Negative (Neg) 11/16/22 Unknown Influenza Type B (PCR) Negative (Neg) 11/16/22 Unknown RSV (RT-PCR) Negative (Neg) 11/16/22 Unknown Impressions Chest X-Ray 11/16/22 14:45 XR chest 1V portable HISTORY: 81 years-old Female Dyspnea acute shortness of breath COMPARISON: 05/31/2022 TECHNIQUE: AP view of the chest FINDINGS: Cardiac silhouette is enlarged. Atrial septal occlusion device. No pneumothorax. Chronic blunting of the costophrenic angles. Mild linear subsegmental atelectasis versus scarring. Degenerative changes of the shoulders and spine. IMPRESSION: Cardiomegaly without acute process. ACT 112: Negative or not required by law. The above report was generated using voice recognition software. It may contain grammatical, syntax or spelling errors. Electronically signed by: Gabe Aviles M.D. 11/16/2022 3:17 PM Chest CTA 11/16/22 14:53 CT angio chest PE protocol CT DOSE: 636.65 mGy.cm HISTORY: 81 years-old Female with PE. Acute shortness of breath. COVID Positive. TECHNIQUE: Multiple CTA images of the chest were obtained after the intravenous administration of 98 ml Optiray. Coronal and sagittal MIPS were obtained from the axial data set and were submitted for review. All measurements were obtained according to NASCET criteria. A dose lowering technique was utilized adhering to the principles of ALARA. COMPARISON: CT abdomen and pelvis 07/22/2022 FINDINGS: CTA: Moderate cardiomegaly without pericardial effusion. Left atrial exclusion device. Moderate coronary artery calcifications. Atherosclerosis of the thoracic aorta without aneurysm. Dilated main pulmonary artery, 4.2 cm. The segmental and subsegmental pulmonary arterial branches are not well evaluated secondary to contrast bolus timing and respiratory motion artifact. No central pulmonary emboli identified. CT CHEST: No thyroid nodule. No lymphadenopathy identified. No pneumothorax, pleural effusion or overt pulmonary edema. 4 mm subpleural solid nodule of the right upper lobe, image 212. A few additional scattered 3-4 mm nodular foci the bilateral lungs with mild tree-in-bud nodules of the basal right lower lobe and right upper lobe. Subsegmental linear bibasilar consolidation. Central airways are patent. Mild bronchial wall thickening. 1.8 cm left gland adenoma. Unremarkable soft tissues. Degenerative changes of the shoulders and spine. IMPRESSION: 1. Cardiomegaly without pulmonary emboli identified. 2. Suggestion of pulmonary arterial hypertension. 3. Scattered tree-in-bud nodules within the right upper and lower lobes are suggestive of an infectious or inflammatory bronchiolitis. Additional scattered pulmonary nodules measuring 3-4 mm also likely infectious or inflammatory. 4. No lymphadenopathy. Please refer to below summary of Fleischner criteria recommendations for follow- up of incidental CT nodules (Sammi Thompson, Guidelines for management of small pulmonary nodules detected on CT scans: A statement from the Fleischner Society, Radiology 237: [id number].) SOLID NODULES Multiple nodules size: <6 mm * Low risk patients: no routine follow-up * high risk patients: optional CT at 12 months Note: newly detected indeterminate nodule in persons 35 years of age or older. * Low risk patients: minimal or absent history of smoking and/or other known risk factors * high risk patients: history of smoking or of other known risk factors (e.g. first degree relative with lung cancer, or exposure to asbestos, radon, uranium) * if a nodule up to 8 mm is partly solid or is ground glass further follow-up is required after 24 months to exclude possible slow growing adenocarcinoma (ANAIS) ACT 112: Negative or not required by law. The above report was generated using voice recognition software. It may contain grammatical, syntax or spelling errors. Electronically signed by: Gabe Aviles M.D. 11/16/2022 4:51 PM Renal Ultrasound 11/16/22 18:05 RENAL ULTRASOUND HISTORY: Follow up study in a patient with history of ureteral stents hx BL ureteral stenting COMPARISON: CT abdomen and pelvis 07/22/2022 FINDINGS: Right kidney: 9.7 No hydronephrosis. Cyst of the right kidney measure up to 2.4 cm. Normal corticomedullary differentiation and cortical thickness. Left kidney: 9.6 No hydronephrosis. Normal corticomedullary differentiation and cortical thickness. Bladder: Decompressed urinary bladder. IMPRESSION: 1. No renal calculi or hydronephrosis identified. 2. Bilateral renal cysts redemonstrated. ACT 112: Negative or not required by law. Electronically signed by: Gabe Aviles M.D. 11/16/2022 10:43 PM (1) COPD (chronic obstructive pulmonary disease) COPD type: COPD with acute exacerbation Qualified Code(s): J44.1 - Chronic obstructive pulmonary disease with (acute) exacerbation
[2022-11-17] MEDS ORDERED: GLUCOSE 40% GEL 15 GM TUBE PO PRN (11:35)
[2022-11-17] MEDS ORDERED: CARBOHYDRATES FOR HYPOGLYCEMIA PO PRN (11:35)
[2022-11-17] MEDS ORDERED: GLUCAGON FOR INJ 1 MG VIAL SQ PRN (11:35)
[2022-11-17] MEDS ORDERED: GLUCOSE 10 TAB/TUBE PO PRN (11:35)
[2022-11-17] MEDS ORDERED: MAGNESIUM HYDROXIDE SUSP 30 ML UDC PO ONE (11:36)
[2022-11-17] MEDS: cefTRIAXone SODIUM 2,000 MG in DEXTROSE 5% 50 ML IV SCH (13:00)
[2022-11-17 16:11] LABS: BUN Creatinine Ratio 19.6 (10-20); Calcium 9.1 mg/dl (8.5-10.1); Creatinine Clr Calc Pharmacy 45.2 ml/min; Est GFR (African American) 55.6 ml/min; Potassium 4.5 mmol/L (3.5-5.1)
[2022-11-17] MEDS: SODIUM CHLORIDE 0.9% 1000ML 1,000 ML IV SCH (16:48)
[2022-11-17] MEDS: INSULIN ASPART PER UNIT SC SCH ×2 (16:59→21:28)
[2022-11-17] MEDS: REMDESIVIR 100 MG in SODIUM CHLORIDE 0.9% 230 ML IV SCH (20:59)
[2022-11-17] MEDS: ATORVASTATIN 40 MG TAB PO SCH (21:04)
[2022-11-17] MEDS: BIMATOPROST 0.01% OP SOLN 2.5 ML BTL OP SCH (21:04)
[2022-11-17] MEDS: ENOXAPARIN INJ 40 MG/0.4 ML SYR SQ SCH (21:05)
[2022-11-17 21:24] LABS: Calcium 9.1 mg/dl (8.5-10.1); Potassium 4.6 mmol/L (3.5-5.1)
[2022-11-17 21:29] LABS: Creatinine Clr Calc Pharmacy 41.7 ml/min; Est GFR (African American) 50.4 ml/min; Est GFR (Non-African American) 43.5 ml/min
[2022-11-18 05:17] LABS: Urine Potassium 20.7 mmol/L
[2022-11-18] MEDS: SODIUM CHLORIDE 0.9% 1000ML 1,000 ML IV SCH ×2 (05:33→19:09)
[2022-11-18] MEDS: Albuterol HFA 8 GM Inhaler (Combivent Respimat P&T Subs) INH SCH ×4 (05:38→19:11)
[2022-11-18] MEDS: Ipratropium HFA Inhaler (Combivent Respimat P&T Subs) INH SCH ×4 (05:38→19:11)
[2022-11-18 07:12] LABS: Hematocrit (blood only) 26.7 % (37.0-47.0); Hemoglobin 8.5 g/dl (12.0-16.0); Immature Granulocytes # (auto) 0.08 K/uL (0.01-0.20); Immature Granulocytes % (auto) 0.8 %; Lymphocytes # (auto) 1.33 K/uL (1.2-3.4); Lymphocytes % (auto) 14.1 %; Mean Corpuscular Hemoglobin 28.3 pg (25.0-34.0); Mean Corpuscular Hgb Conc 31.8 g/dL (32.0-36.0); Monocytes # (auto) 0.54 K/uL (0.11-0.59); Monocytes % (auto) 5.7 %; Neutrophils % (auto) 79.4 %; Platelet Count 357 K/uL (130-400); RDW Coefficient of Variation 14.1 % (11.5-14.5); RDW Standard Deviation 45.9 fL (36.4-46.3); White Blood Count 9.45 K/ul (4.8-10.8)
[2022-11-18 07:28] LABS: Estimated Average Glucose 146 mg/dl; Hemoglobin A1C 6.7 % (4.5-5.6)
[2022-11-18 07:33] LABS: BUN Creatinine Ratio 25.9 (10-20); Calcium 9.6 mg/dl (8.5-10.1); Creatinine Clr Calc Pharmacy 44.7 ml/min; Est GFR (Non-African American) 47.4 ml/min; Magnesium 1.9 mg/dl (1.7-2.4); Potassium 4.3 mmol/L (3.5-5.1)
[2022-11-18] MEDS: SUCRALFATE 1 GM TAB PO SCH ×4 (07:50→21:03)
[2022-11-18] MEDS: ASPIRIN 81 MG ECTAB PO SCH (07:50)
[2022-11-18] MEDS: cefTRIAXone SODIUM 2,000 MG in DEXTROSE 5% 50 ML IV SCH (07:50)
[2022-11-18] MEDS: DICYCLOMINE HCL 20 MG TAB PO SCH (07:53)
[2022-11-18] MEDS: DOCUSATE SODIUM 100 MG CAP PO SCH ×2 (07:53→21:05)
[2022-11-18] MEDS: dexAMETHasone 6 MG in SYRINGE 0 ML IV SCH (07:53)
[2022-11-18] MEDS: DORZOLAMIDE HCL 2% OPH SOLN 10 ML BTL OP SCH ×2 (07:54→21:04)
[2022-11-18] MEDS: FERROUS SULFATE 325 MG TAB PO SCH (07:55)
[2022-11-18] MEDS: METOPROLOL SUCC 25MG EXT REL TAB PO SCH (07:56)
[2022-11-18] MEDS: methIMAzole 5 MG TABLET PO SCH (07:56)
[2022-11-18] MEDS: PANTOprazole 40 MG TAB PO SCH (07:57)
[2022-11-18] MEDS: POTASSIUM CHLORIDE CRTAB 20 MEQ TABCR PO SCH (07:57)
[2022-11-18] MEDS: SERTRALINE HCL 50 MG TABLET PO SCH (07:58)
[2022-11-18] MEDS: INSULIN ASPART PER UNIT SC SCH ×4 (08:06→21:10)
[2022-11-18] MEDS: oxyCODONE HCL IR 5 MG TAB (IMMEDIATE RELEASE) PO PRN ×4 (08:20→21:07)
--- NOTE | 2022-11-18 09:21 | Hospitalist Progress Note ---
Date of Service November 18, 2022 Assessment & Plan (1) Hypoglycemia: Plan: History of type 2 diabetes mellitus; most recent A1c as per outpatient lab 6.8. She is on glimepiride 2 mg daily; Patient had hypoglycemic episode which resulted in unresponsiveness. She was brought to the ED;. Her blood glucose level was 61. Was given D10 infusion overnight and every 2 blood glucose checks Her blood glucoses improved to 150s to 200. Plan; Currently on D5 normal saline at 80 cc/h. She is also on dexamethasone for COVID infection which will increase her blood glucose level. We will put her on NovoLog for now. Given patient's age and comorbidities; patient A1c goal would be 7.5 to 8%. A1c is 6.7% We will stop glimepiride at discharge. She will follow-up with her primary care doctor to discuss long-term management for her type 2 diabetes mellitus. (2) Acute on chronic respiratory failure with hypoxia: (3) COPD (chronic obstructive pulmonary disease): (4) COVID-19: Plan: Patient hypoxic on usual 2 L at 86%. Currently requiring 4 L of oxygen via nasal cannula on admission. Tested positive for COVID-[facility] to admission. Started on Paxlovid. Patient had 4 doses of COVID-19 vaccine already In the ED, CTA chest negative for pulmonary embolism; scattered tree in bud nodules within right upper and lower lobe suggestive of infectious/inflammatory bronchiolitis. Plan; She is currently on dexamethasone 6 mg once daily and remdesivir. - feels short of breath intermittently -currently on 2L Provide supplemental oxygen as needed. (5) Atrial fibrillation with RVR: Plan: On presentation, heart rate in the 130s, received diltiazem 20 mg IV with improvement in heart rate History of paroxysmal atrial fibrillation s/p watchman device Continue home dose metoprolol for now Her ventricular rate has been in the range of 70s to 90s. (6) Hyponatremia: Plan: Sodium 129 on admission; down trended to 127 -> now 132 Urine electrolytes, osmolarity and creatinine sent. Suspect hypovolemic hyponatremia given decreased oral intake. Monitor BMP closely (7) Chronic HFrEF (heart failure with reduced ejection fraction): (8) NICM (nonischemic cardiomyopathy): Plan: EF 40-45% on echo 06/2021 High-sensitivity troponin slightly elevated on admission; no delta difference. Likely demand ischemia. Holding diuretics for now. Will obtain repeat echocardiogram. Resume Lasix when appropriate. (9) Asymptomatic bacteriuria: (10) S/P colon resection: Plan: Recently admitted to [facility] for elective colon resection due to recurrent diverticulitis and colovesical fistula Wound care nurse consult to follow surgical wound. + Wound dehiscence. Will discuss further w/ wound care Urinalysis shows greater than 30 WBC and 4+ bacteria. Patient denies any symptoms. Blood culture was sent yesterday; currently on empiric ceftriaxone. DC if blood culture is negative for 48 hours. Patient reports history of ureteral stent placed during her hospitalization in [facility]. Chart review shows she underwent cystoscopy with bilateral stent placement in November 01. Renal ultrasound does not show any hydronephrosis. Patient has follow-up appointment on November 26 with general surgery at [place]. Patient also has outpatient urology referral. (11) Subclinical hyperthyroidism: Plan: TSH WNL Continue methimazole Plan Full code DVT prophylaxis Heparin Dispositionpatient does not want to go back to [facility]. She states she will prefer to go to [facility]. PT OT ordered. Admission and Anticipated Discharge Date Admission Date: November 16, 2022 Subjective Patient seen in follow up for hypoxia, positive COVID-19, hyponatremia, hypoglycemia Sodium improved to 132 today Currently patient is on 2 L of supplemental oxygen via O2 She reports intermittent shortness of breath No fevers chills chest pain Has some minimal deep abdominal pain, status post surgery Review of Systems Review of Systems: All systems reviewed & are unremarkable except as noted in Subjective Physical Exam Physical Exam: Constitutional: Awake, alert oriented x3; not in any distress. Neck: supple Respiratory: + rhonchi; decreased breath sound at bases. Cardiovascular: Irregular, no murmur, no edema Vessels: no JVD or carotid bruit Chest: normal inspection of chest Abdomen: Dressings applied over the incision/wound; + dehiscence of the wound Musculoskeletal: moves extremities Skin: no rashes, warm and dry normal turgor Neuro/Psych: PERRL, EOMI, no face palsy, no dysarthria, moves extremities, answers questions appropriately Results & Data Results & Data ([facility]) Vital Signs (Past 12 Hours) Vital Signs Temp Pulse Resp BP Pulse Ox O2 Del Method O2 Flow Rate 11/18/22 07:42 36.7 C 83 20 100/49 L 94 Nasal Cannula 2 11/18/22 05:40 85 18 100 Nasal Cannula 3 11/18/22 04:30 36.5 C 82 18 131/89 99 Nasal Cannula 2 11/18/22 03:16 Nasal Cannula 2 Laboratory Results 11/18/22 11/18/22 11/18/22 Range/Units Unknown Unknown 07:45 WBC (4.8-10.8) K/ul RBC (4.20-5.40) M/uL Hgb (12.0-16.0) g/dl Hct (37.0-47.0) % MCV (80.0-100.0) fL MCH (25.0-34.0) pg MCHC (32.0-36.0) g/dL RDW Std Deviation (36.4-46.3) fL RDW Coeff of Jesika (11.5-14.5) % Plt Count (130-400) K/uL MPV (9.4-12.4) fL Immature Gran % (Auto) % Neut % (Auto) % Lymph % (Auto) % [place] % (Auto) % Eos % (Auto) % Baso % (Auto) % Neut # (Auto) (1.40-6.50) K/uL Lymph # (Auto) (1.2-3.4) K/uL [place] # (Auto) (0.11-0.59) K/uL Eos # (Auto) (0-0.50) K/uL Baso # (Auto) (0-0.2) K/uL Immature Gran # (Auto) (0.01-0.20) K/uL Sodium (136-145) mmol/L Potassium (3.5-5.1) mmol/L Chloride (98-107) mmol/L Carbon Dioxide (21-32) mmol/L Anion Gap (3-11) BUN (6-23) mg/dl Creatinine (0.6-1.2) mg/dl Est Cr Clr Drug Dosing ml/min Est GFR ( Amer) ml/min Est GFR (Non-Af Amer) ml/min BUN/Creatinine Ratio (10-20) Glucose (70-99(Fasting)) mg/dl POC Glucose 180 H (70-99) mg/dl Estimat Average Glucose mg/dl Hemoglobin A1c (4.5-5.6) % Calcium (8.5-10.1) mg/dl Magnesium (1.7-2.4) mg/dl AST (13-39) U/L ALT (7-52) U/L Urine Osmolality 180 L (500-800) mOsm/kg Ur Random Creatinine 14.0 mg/dl Urine Sodium 35 mmol/L Urine Potassium 20.7 mmol/L Urine Chloride 33 mmol/L 11/18/22 11/18/22 11/17/22 Range/Units 06:53 06:53 21:06 WBC 9.45 (4.8-10.8) K/ul RBC 3.00 L (4.20-5.40) M/uL Hgb 8.5 L (12.0-16.0) g/dl Hct 26.7 L (37.0-47.0) % MCV 89.0 (80.0-100.0) fL MCH 28.3 (25.0-34.0) pg MCHC 31.8 L (32.0-36.0) g/dL RDW Std Deviation 45.9 (36.4-46.3) fL RDW Coeff of Jesika 14.1 (11.5-14.5) % Plt Count 357 (130-400) K/uL MPV 10.0 (9.4-12.4) fL Immature Gran % (Auto) 0.8 % Neut % (Auto) 79.4 % Lymph % (Auto) 14.1 % [place] % (Auto) 5.7 % Eos % (Auto) 0.0 % Baso % (Auto) 0.0 % Neut # (Auto) 7.50 H (1.40-6.50) K/uL Lymph # (Auto) 1.33 (1.2-3.4) K/uL [place] # (Auto) 0.54 (0.11-0.59) K/uL Eos # (Auto) 0.00 (0-0.50) K/uL Baso # (Auto) 0.00 (0-0.2) K/uL Immature Gran # (Auto) 0.08 (0.01-0.20) K/uL Sodium 132 L (136-145) mmol/L Potassium 4.3 (3.5-5.1) mmol/L Chloride 98 (98-107) mmol/L Carbon Dioxide 32 (21-32) mmol/L Anion Gap 2 L (3-11) BUN 28 H (6-23) mg/dl Creatinine 1.08 (0.6-1.2) mg/dl Est Cr Clr Drug Dosing 44.7 ml/min Est GFR ( Amer) 55.0 ml/min Est GFR (Non-Af Amer) 47.4 ml/min BUN/Creatinine Ratio 25.9 H (10-20) Glucose 173 H (70-99(Fasting)) mg/dl POC Glucose 250 H (70-99) mg/dl Estimat Average Glucose mg/dl Hemoglobin A1c (4.5-5.6) % Calcium 9.6 (8.5-10.1) mg/dl Magnesium 1.9 (1.7-2.4) mg/dl AST 12 L (13-39) U/L ALT 8 (7-52) U/L Urine Osmolality (500-800) mOsm/kg Ur Random Creatinine mg/dl Urine Sodium mmol/L Urine Potassium mmol/L Urine Chloride mmol/L 11/17/22 11/17/22 11/17/22 Range/Units 20:55 15:51 15:24 WBC (4.8-10.8) K/ul RBC (4.20-5.40) M/uL Hgb (12.0-16.0) g/dl Hct (37.0-47.0) % MCV (80.0-100.0) fL MCH (25.0-34.0) pg MCHC (32.0-36.0) g/dL RDW Std Deviation (36.4-46.3) fL RDW Coeff of Jesika (11.5-14.5) % Plt Count (130-400) K/uL MPV (9.4-12.4) fL Immature Gran % (Auto) % Neut % (Auto) % Lymph % (Auto) % [place] % (Auto) % Eos % (Auto) % Baso % (Auto) % Neut # (Auto) (1.40-6.50) K/uL Lymph # (Auto) (1.2-3.4) K/uL [place] # (Auto) (0.11-0.59) K/uL Eos # (Auto) (0-0.50) K/uL Baso # (Auto) (0-0.2) K/uL Immature Gran # (Auto) (0.01-0.20) K/uL Sodium 130 L 128 L (136-145) mmol/L Potassium 4.6 4.5 (3.5-5.1) mmol/L Chloride 93 L 90 L (98-107) mmol/L Carbon Dioxide 36 H 34 H (21-32) mmol/L Anion Gap 1 L 4 (3-11) BUN 22 21 (6-23) mg/dl Creatinine 1.16 1.07 (0.6-1.2) mg/dl Est Cr Clr Drug Dosing 41.7 45.2 ml/min Est GFR ( Amer) 50.4 55.6 ml/min Est GFR (Non-Af Amer) 43.5 48.0 ml/min BUN/Creatinine Ratio 19.0 19.6 (10-20) Glucose 193 H 290 H (70-99(Fasting)) mg/dl POC Glucose 305 H* (70-99) mg/dl Estimat Average Glucose mg/dl Hemoglobin A1c (4.5-5.6) % Calcium 9.1 9.1 (8.5-10.1) mg/dl Magnesium (1.7-2.4) mg/dl AST (13-39) U/L ALT (7-52) U/L Urine Osmolality (500-800) mOsm/kg Ur Random Creatinine mg/dl Urine Sodium mmol/L Urine Potassium mmol/L Urine Chloride mmol/L 11/17/22 11/17/22 Range/Units 11:03 03:07 WBC (4.8-10.8) K/ul RBC (4.20-5.40) M/uL Hgb (12.0-16.0) g/dl Hct (37.0-47.0) % MCV (80.0-100.0) fL MCH (25.0-34.0) pg MCHC (32.0-36.0) g/dL RDW Std Deviation (36.4-46.3) fL RDW Coeff of Jesika (11.5-14.5) % Plt Count (130-400) K/uL MPV (9.4-12.4) fL Immature Gran % (Auto) % Neut % (Auto) % Lymph % (Auto) % [place] % (Auto) % Eos % (Auto) % Baso % (Auto) % Neut # (Auto) (1.40-6.50) K/uL Lymph # (Auto) (1.2-3.4) K/uL [place] # (Auto) (0.11-0.59) K/uL Eos # (Auto) (0-0.50) K/uL Baso # (Auto) (0-0.2) K/uL Immature Gran # (Auto) (0.01-0.20) K/uL Sodium (136-145) mmol/L Potassium (3.5-5.1) mmol/L Chloride (98-107) mmol/L Carbon Dioxide (21-32) mmol/L Anion Gap (3-11) BUN (6-23) mg/dl Creatinine (0.6-1.2) mg/dl Est Cr Clr Drug Dosing ml/min Est GFR ( Amer) ml/min Est GFR (Non-Af Amer) ml/min BUN/Creatinine Ratio (10-20) Glucose (70-99(Fasting)) mg/dl POC Glucose 269 H (70-99) mg/dl Estimat Average Glucose 146 mg/dl Hemoglobin A1c 6.7 H (4.5-5.6) % Calcium (8.5-10.1) mg/dl Magnesium (1.7-2.4) mg/dl AST (13-39) U/L ALT (7-52) U/L Urine Osmolality (500-800) mOsm/kg Ur Random Creatinine mg/dl Urine Sodium mmol/L Urine Potassium mmol/L Urine Chloride mmol/L Medications Administered Current Inpatient Medications Acetaminophen (Acetaminophen 325 Mg Tab) 650 mg PO Q4H PRN PRN Reason: Pain or Fever Stop: 12/16/22 20:03 Last Admin: 11/16/22 23:05 Dose: 650 mg Albuterol (Albuterol Hfa 8 Gm Inhaler (Combivent Respimat P&T Subs)) 1 puffs INH QIDR [facility]; Protocol Stop: 12/17/22 06:59 Last Admin: 11/18/22 05:38 Dose: 1 puffs Aspirin (Aspirin 81 Mg Ectab) 81 mg PO DAILY [facility] Stop: 12/17/22 08:59 Last Admin: 11/18/22 07:50 Dose: 81 mg Atorvastatin Calcium (Atorvastatin 40 Mg Tab) 40 mg PO HS ANDREA Stop: 12/16/22 20:59 Last Admin: 11/17/22 21:04 Dose: 40 mg Bimatoprost (Bimatoprost 0.01% Op Soln 2.5 Ml Btl) 1 drops OP HS ANDREA Stop: 12/16/22 20:59 Last Admin: 11/17/22 21:04 Dose: 1 drops Dicyclomine HCl (Dicyclomine Hcl 20 Mg Tab) 20 mg PO DAILY ANDREA Stop: 12/17/22 08:59 Last Admin: 11/18/22 07:53 Dose: 20 mg Docusate Sodium (Docusate Sodium 100 Mg Cap) 100 mg PO BID ANDREA Stop: 12/16/22 20:59 Last Admin: 11/18/22 07:53 Dose: 100 mg Dorzolamide HCl (Dorzolamide Hcl 2% Oph Soln 10 Ml Btl) 1 drops OP BID ANDREA Stop: 12/16/22 20:59 Last Admin: 11/18/22 07:54 Dose: 1 drops Enoxaparin Sodium (Enoxaparin Inj 40 Mg/0.4 Ml Syr) 40 mg SQ Q24H ANDREA Stop: 12/16/22 20:59 Last Admin: 11/17/22 21:05 Dose: Not Given Ferrous Sulfate (Ferrous Sulfate 325 Mg Tab) 325 mg PO QAM ANDREA Stop: 12/17/22 08:59 Last Admin: 11/18/22 07:55 Dose: 325 mg Glucagon (Glucagon For Inj 1 Mg Vial) 1 mg SQ UD PRN; Protocol PRN Reason: Hypoglycemia Protocol Stop: 12/17/22 11:34 Glucose (Glucose 40% Gel 15 Gm Tube) 15 - 30 gm PO UD PRN; Protocol PRN Reason: Hypoglycemia Protocol Stop: 12/17/22 11:34 Glucose (Glucose 10 Tab/Tube) 4 - 8 tab PO UD PRN; Protocol PRN Reason: Hypoglycemia Treatment Stop: 12/17/22 11:34 Guaifenesin/Dextromethorphan (Guaifenesin/Dextrom Syrup 100mg/10mg 5ml Udc) 5 ml PO Q6H PRN PRN Reason: Cough Stop: 12/17/22 09:59 Last Admin: 11/17/22 21:35 Dose: 5 ml Remdesivir 100 mg/ Sodium (Chloride) 250 mls @ 250 mls/hr IV Q24H [facility] Stop: 11/20/22 20:59 Last Infusion: 11/17/22 22:23 Dose: Infused Dexamethasone 6 mg/ Syringe 1.5 mls @ 1 mls/min IV DAILY ANDREA Stop: 11/27/22 08:59 Last Admin: 11/18/22 07:53 Dose: 1 mls/min Promethazine HCl 6.25 mg/ (Sodium Chloride) 50.25 mls @ 201 mls/hr IV Q6H PRN PRN Reason: Nausea And Vomiting Stop: 12/17/22 07:34 Last Infusion: 11/17/22 22:38 Dose: Infused Ceftriaxone Sodium 2,000 mg/ (Dextrose) 70 mls @ 100 mls/hr IV DAILY [facility]; Protocol Stop: 11/27/22 11:59 Last Infusion: 11/18/22 08:57 Dose: Infused Sodium Chloride (Nss 1000ml) 1,000 mls @ 80 mls/hr IV .[id number] [facility] Stop: 12/17/22 16:29 Last Admin: 11/18/22 05:33 Dose: 80 mls/hr Insulin Aspart (Insulin Aspart Per Unit) 0 units SC ACHS [facility] Stop: 12/17/22 16:29 Last Admin: 11/18/22 08:06 Dose: 2 units Ipratropium [place] (Ipratropium Hfa Inhaler (Combivent Respimat P&T Subs)) 1 puffs INH QIDR [facility]; Protocol Stop: 12/17/22 06:59 Last Admin: 11/18/22 05:38 Dose: 1 puffs Levalbuterol HCl (Levalbuterol Hcl 1.25 Mg/3 Ml Neb) 1.25 mg NEB Q4H PRN; Protocol PRN Reason: Shortness Of Breath Or Wheezing Stop: 12/17/22 06:14 Methimazole (Methimazole 5 Mg Tablet) 5 mg PO DAILY [facility] Stop: 12/17/22 08:59 Last Admin: 11/18/22 07:56 Dose: 5 mg Metoprolol Succinate (Metoprolol Succ 25mg Ext Rel Tab) 12.5 mg PO DAILY [facility] Stop: 12/17/22 08:59 Last Admin: 11/18/22 07:56 Dose: 12.5 mg Miscellaneous (Carbohydrates For Hypoglycemia ) 15 - 30 gm PO UD PRN PRN Reason: Hypoglycemia Protocol Stop: 12/17/22 11:34 Oxycodone HCl (Oxycodone Hcl Ir 5 Mg Tab (Immediate Release)) 5 mg PO Q4H PRN PRN Reason: Pain Stop: 11/30/22 20:03 Last Admin: 11/18/22 08:20 Dose: 5 mg Pantoprazole Sodium (Pantoprazole 40 Mg Tab) 40 mg PO DAILY ANDREA Stop: 12/17/22 08:59 Last Admin: 11/18/22 07:57 Dose: 40 mg Potassium Chloride (Potassium Chloride Crtab 20 Meq Tabcr) 20 meq PO DAILY ANDREA Stop: 12/17/22 08:59 Last Admin: 11/18/22 07:57 Dose: 20 meq Sertraline HCl (Sertraline Hcl 50 Mg Tablet) 25 mg PO DAILY ANDREA Stop: 12/17/22 08:59 Last Admin: 11/18/22 07:58 Dose: 25 mg Sucralfate (Sucralfate 1 Gm Tab) 1 gm PO ACHS ANDREA Stop: 12/16/22 20:59 Last Admin: 11/18/22 07:50 Dose: 1 gm (1) COPD (chronic obstructive pulmonary disease) COPD type: COPD with acute exacerbation Qualified Code(s): J44.1 - Chronic obstructive pulmonary disease with (acute) exacerbation
--- NOTE | 2022-11-18 09:55 | Electrocardiogram Report ---
Test Reason : Blood Pressure : / mmHG Vent. Rate : 079 BPM Atrial Rate : 208 BPM P-R Int : 000 ms QRS Dur : 126 ms QT Int : 392 ms P-R-T Axes : 000 -48 035 degrees QTc Int : 449 ms Atrial fibrillation Left bundle branch block Abnormal ECG When compared with ECG of 17-NOV-2022 05:01, No significant change Confirmed by Shmuel Hartmann ([id number] on 11/18/2022 9:54:57 AM Referred By: REFERRED SELF Confirmed By:Shmuel Hartmann
[2022-11-18] MEDS: ACETAMINOPHEN 325 MG TAB PO PRN (16:21)
[2022-11-18] MEDS: REMDESIVIR 100 MG in SODIUM CHLORIDE 0.9% 230 ML IV SCH (20:14)
[2022-11-18] MEDS: guaiFENesin/DEXTROM SYRUP 100MG/10MG 5ML UDC PO PRN (21:03)
[2022-11-18] MEDS: ATORVASTATIN 40 MG TAB PO SCH (21:05)
[2022-11-18] MEDS: ENOXAPARIN INJ 40 MG/0.4 ML SYR SQ SCH ×2 (21:06→21:27)
[2022-11-18] MEDS: BIMATOPROST 0.01% OP SOLN 2.5 ML BTL OP SCH (21:07)
[2022-11-18] MEDS: LEVALBUTEROL HCL 1.25 MG/3 ML NEB NEB PRN (23:20)
[2022-11-19] MEDS: oxyCODONE HCL IR 5 MG TAB (IMMEDIATE RELEASE) PO PRN ×4 (03:12→23:43)
[2022-11-19] MEDS: ACETAMINOPHEN 325 MG TAB PO PRN (03:12)
[2022-11-19] MEDS: PROMETHAZINE HCL 6.25 MG in SODIUM CHLORIDE 0.9% 50 ML IV PRN (03:50)
[2022-11-19] MEDS: LEVALBUTEROL HCL 1.25 MG/3 ML NEB NEB PRN ×2 (04:09→22:38)
[2022-11-19 06:46] LABS: Hematocrit (blood only) 25.8 % (37.0-47.0); Hemoglobin 8.3 g/dl (12.0-16.0); Mean Corpuscular Hemoglobin 28.3 pg (25.0-34.0); Mean Corpuscular Hgb Conc 32.2 g/dL (32.0-36.0); Mean Corpuscular Volume 88.1 fL (80.0-100.0); Mean Platelet Volume 11.1 fL (9.4-12.4); Platelet Count 338 K/uL (130-400); RDW Standard Deviation 44.9 fL (36.4-46.3); Red Blood Count 2.93 M/uL (4.20-5.40); White Blood Count 8.54 K/ul (4.8-10.8)
[2022-11-19 07:06] LABS: BUN Creatinine Ratio 34.8 (10-20); Calcium 9.3 mg/dl (8.5-10.1); Creatinine Clr Calc Pharmacy 52.1 ml/min; Est GFR (African American) 66.7 ml/min; Est GFR (Non-African American) 57.6 ml/min; Magnesium 1.9 mg/dl (1.7-2.4); Phosphorus 2.8 mg/dl (2.5-4.9); Potassium 4.5 mmol/L (3.5-5.1)
[2022-11-19] MEDS: Albuterol HFA 8 GM Inhaler (Combivent Respimat P&T Subs) INH SCH ×4 (07:20→19:13)
[2022-11-19] MEDS: Ipratropium HFA Inhaler (Combivent Respimat P&T Subs) INH SCH ×4 (07:20→19:13)
[2022-11-19] MEDS: SUCRALFATE 1 GM TAB PO SCH ×4 (08:40→20:08)
[2022-11-19] MEDS: METOPROLOL SUCC 25MG EXT REL TAB PO SCH (08:40)
[2022-11-19] MEDS: FERROUS SULFATE 325 MG TAB PO SCH (08:41)
[2022-11-19] MEDS: DICYCLOMINE HCL 20 MG TAB PO SCH (08:41)
[2022-11-19] MEDS: SERTRALINE HCL 50 MG TABLET PO SCH (08:41)
[2022-11-19] MEDS: cefTRIAXone SODIUM 2,000 MG in DEXTROSE 5% 50 ML IV SCH (08:41)
[2022-11-19] MEDS: ASPIRIN 81 MG ECTAB PO SCH (08:42)
[2022-11-19] MEDS: dexAMETHasone 6 MG in SYRINGE 0 ML IV SCH (08:42)
[2022-11-19] MEDS: DOCUSATE SODIUM 100 MG CAP PO SCH ×2 (08:42→20:09)
[2022-11-19] MEDS: methIMAzole 5 MG TABLET PO SCH (08:42)
[2022-11-19] MEDS: PANTOprazole 40 MG TAB PO SCH (08:43)
[2022-11-19] MEDS: POTASSIUM CHLORIDE CRTAB 20 MEQ TABCR PO SCH (08:45)
[2022-11-19] MEDS: DORZOLAMIDE HCL 2% OPH SOLN 10 ML BTL OP SCH ×2 (08:45→20:11)
[2022-11-19] MEDS: INSULIN ASPART PER UNIT SC SCH ×4 (09:21→22:41)
--- NOTE | 2022-11-19 14:36 | Hospitalist Progress Note ---
Date of Service November 19, 2022 Assessment & Plan (1) Hypoglycemia: Plan: History of type 2 diabetes mellitus; most recent A1c as per outpatient lab 6.8. She is on glimepiride 2 mg daily; Patient had hypoglycemic episode which resulted in unresponsiveness. She was brought to the ED;. Her blood glucose level was 61. Was given D10 infusion overnight and every 2 blood glucose checks Her blood glucoses improved to 150s to 200. Plan; She is also on dexamethasone for COVID infection which will increase her blood glucose level.on NovoLog for now. Given patient's age and comorbidities; patient A1c goal would be 7.5 to 8%. A1c is 6.7% We will stop glimepiride at discharge. She will follow-up with her primary care doctor to discuss long-term management for her type 2 diabetes mellitus. (2) Acute on chronic respiratory failure with hypoxia: (3) COPD (chronic obstructive pulmonary disease): (4) COVID-19: Plan: Patient hypoxic on usual 2 L at 86%. Currently requiring 4 L of oxygen via nasal cannula on admission. [facility]. Started on Paxlovid. Patient had 4 doses of COVID-19 vaccine already In the ED, CTA chest negative for pulmonary embolism; scattered tree in bud nodules within right upper and lower lobe suggestive of infectious/inflammatory bronchiolitis. Plan; She is currently on dexamethasone 6 mg once daily and remdesivir. - feels short of breath intermittently -currently on 4L Provide supplemental oxygen as needed. ESBL E.coli UTI Urinalysis shows greater than 30 WBC and 4+ bacteria. Blood culture was sent, and pt on empiric ceftriaxone. Patient reports history of ureteral stent placed during her hospitalization in [facility]. Chart review shows she underwent cystoscopy with bilateral stent placement in November 01. Renal ultrasound does not show any hydronephrosis. Patient has outpatient urology referral Urine culture positive for ESBL E. coli. Stopped ceftriaxone, switched to ertapenem (5) Atrial fibrillation with RVR: Plan: On presentation, heart rate in the 130s, received diltiazem 20 mg IV with improvement in heart rate History of paroxysmal atrial fibrillation s/p watchman device Continue home dose metoprolol for now Rate controlled now. (6) Hyponatremia: Plan: Sodium 129 on admission; down trended to 127 -> now 133 Urine electrolytes, osmolarity and creatinine sent. Suspect hypovolemic hyponatremia given decreased oral intake. Monitor BMP closely (7) Chronic HFrEF (heart failure with reduced ejection fraction): (8) NICM (nonischemic cardiomyopathy): Plan: EF 40-45% on echo 06/2021 High-sensitivity troponin slightly elevated on admission; no delta difference. Likely demand ischemia. Holding diuretics for now. Obtained repeat echocardiogram. Resume Lasix when appropriate. (9) S/P colon resection: Plan: Recently admitted to [facility] for elective colon resection due to recurrent diverticulitis and colovesical fistula Wound care nurse consult to follow surgical wound. + Wound dehiscence. Discussed with wound care nurse at the bedside. We will contact surgery at [facility] for further recommendations. Patient has follow-up appointment on November 26 with general surgery at [facility] (10) Subclinical hyperthyroidism: Plan: TSH WNL Continue methimazole Plan Full code DVT prophylaxis Heparin Dispositionpatient does not want to go back to [facility]. She states she will prefer to go to [facility]. PT OT ordered. Admission and Anticipated Discharge Date Admission Date: November 16, 2022 Subjective Patient seen in follow up for hypoxia, positive COVID-19, hyponatremia, hypoglycemia Sodium improved to 132 today Currently patient is on 4 L of supplemental oxygen via O2 She reports intermittent shortness of breath No fevers chills chest pain Has some minimal deep abdominal pain, status post surgery Examined patient at the bedside with the wound care nurse. Measured abdominal dehiscence wound. No drainage noted. Review of Systems Review of Systems: All systems reviewed & are unremarkable except as noted in Subjective Physical Exam Physical Exam: Constitutional: Awake, alert oriented x3; not in any distress. Neck: supple Respiratory: + rhonchi; decreased breath sound at bases. Cardiovascular: Irregular, no murmur, no edema Vessels: no JVD or carotid bruit Chest: normal inspection of chest Abdomen: Dressings applied over the incision/wound; + dehiscence of the wound , no drainage noted from the wound Musculoskeletal: moves extremities Skin: no rashes, warm and dry normal turgor Neuro/Psych: PERRL, EOMI, no face palsy, no dysarthria, moves extremities, answers questions appropriately Results & Data Results & Data ([facility]) Vital Signs (Past 12 Hours) Vital Signs Temp Pulse Resp BP Pulse Ox O2 Del Method O2 Flow Rate 11/19/22 11:38 37.1 C 86 18 122/72 100 Nasal Cannula 4 11/19/22 10:06 88 18 99 Nasal Cannula 4 11/19/22 08:00 Nasal Cannula 2 11/19/22 07:38 36.6 C 72 18 109/56 L 98 Nasal Cannula 4 11/19/22 07:20 86 18 100 Nasal Cannula 4 11/19/22 04:09 79 18 99 Nasal Cannula 4 11/19/22 03:52 36.6 C 93 H 18 115/82 95 Nasal Cannula 2 Laboratory Results 11/19/22 11/19/22 11/19/22 Range/Units 11:37 07:37 06:12 WBC 8.54 (4.8-10.8) K/ul RBC 2.93 L (4.20-5.40) M/uL Hgb 8.3 L (12.0-16.0) g/dl Hct 25.8 L (37.0-47.0) % MCV 88.1 (80.0-100.0) fL MCH 28.3 (25.0-34.0) pg MCHC 32.2 (32.0-36.0) g/dL RDW Std Deviation 44.9 (36.4-46.3) fL RDW Coeff of Jesika 14.0 (11.5-14.5) % Plt Count 338 (130-400) K/uL MPV 11.1 (9.4-12.4) fL Sodium (136-145) mmol/L Potassium (3.5-5.1) mmol/L Chloride (98-107) mmol/L Carbon Dioxide (21-32) mmol/L Anion Gap (3-11) BUN (6-23) mg/dl Creatinine (0.6-1.2) mg/dl Est Cr Clr Drug Dosing ml/min Est GFR ( Amer) ml/min Est GFR (Non-Af Amer) ml/min BUN/Creatinine Ratio (10-20) Glucose (70-99(Fasting)) mg/dl POC Glucose 145 H 139 H (70-99) mg/dl Calcium (8.5-10.1) mg/dl Phosphorus (2.5-4.9) mg/dl Magnesium (1.7-2.4) mg/dl AST (13-39) U/L ALT (7-52) U/L 11/19/22 11/18/22 11/18/22 Range/Units 06:12 20:16 16:25 WBC (4.8-10.8) K/ul RBC (4.20-5.40) M/uL Hgb (12.0-16.0) g/dl Hct (37.0-47.0) % MCV (80.0-100.0) fL MCH (25.0-34.0) pg MCHC (32.0-36.0) g/dL RDW Std Deviation (36.4-46.3) fL RDW Coeff of Jesika (11.5-14.5) % Plt Count (130-400) K/uL MPV (9.4-12.4) fL Sodium 133 L (136-145) mmol/L Potassium 4.5 (3.5-5.1) mmol/L Chloride 99 (98-107) mmol/L Carbon Dioxide 30 (21-32) mmol/L Anion Gap 4 (3-11) BUN 32 H (6-23) mg/dl Creatinine 0.92 (0.6-1.2) mg/dl Est Cr Clr Drug Dosing 52.1 ml/min Est GFR ( Amer) 66.7 ml/min Est GFR (Non-Af Amer) 57.6 ml/min BUN/Creatinine Ratio 34.8 H (10-20) Glucose 149 H (70-99(Fasting)) mg/dl POC Glucose 224 H 204 H (70-99) mg/dl Calcium 9.3 (8.5-10.1) mg/dl Phosphorus 2.8 (2.5-4.9) mg/dl Magnesium 1.9 (1.7-2.4) mg/dl AST 13 (13-39) U/L ALT 9 (7-52) U/L Medications Administered Current Inpatient Medications Acetaminophen (Acetaminophen 325 Mg Tab) 650 mg PO Q4H PRN PRN Reason: Pain or Fever Stop: 12/16/22 20:03 Last Admin: 11/19/22 03:12 Dose: 650 mg Albuterol (Albuterol Hfa 8 Gm Inhaler (Combivent Respimat P&T Subs)) 1 puffs INH QIDR ANDREA; Protocol Stop: 12/17/22 06:59 Last Admin: 11/19/22 10:06 Dose: 2 puffs Aspirin (Aspirin 81 Mg Ectab) 81 mg PO DAILY ANDREA Stop: 12/17/22 08:59 Last Admin: 11/19/22 08:42 Dose: 81 mg Atorvastatin Calcium (Atorvastatin 40 Mg Tab) 40 mg PO HS ANDREA Stop: 12/16/22 20:59 Last Admin: 11/18/22 21:05 Dose: 40 mg Bimatoprost (Bimatoprost 0.01% Op Soln 2.5 Ml Btl) 1 drops OP HS ANDREA Stop: 12/16/22 20:59 Last Admin: 11/18/22 21:07 Dose: 1 drops Dicyclomine HCl (Dicyclomine Hcl 20 Mg Tab) 20 mg PO DAILY ANDREA Stop: 12/17/22 08:59 Last Admin: 11/19/22 08:41 Dose: 20 mg Docusate Sodium (Docusate Sodium 100 Mg Cap) 100 mg PO BID ANDREA Stop: 12/16/22 20:59 Last Admin: 11/19/22 08:42 Dose: 100 mg Dorzolamide HCl (Dorzolamide Hcl 2% Oph Soln 10 Ml Btl) 1 drops OP BID ANDREA Stop: 12/16/22 20:59 Last Admin: 11/19/22 08:45 Dose: 1 drops Enoxaparin Sodium (Enoxaparin Inj 40 Mg/0.4 Ml Syr) 40 mg SQ Q24H ANDREA Stop: 12/16/22 20:59 Last Admin: 11/18/22 21:27 Dose: Not Given Ferrous Sulfate (Ferrous Sulfate 325 Mg Tab) 325 mg PO QAM ANDREA Stop: 12/17/22 08:59 Last Admin: 11/19/22 08:41 Dose: 325 mg Glucagon (Glucagon For Inj 1 Mg Vial) 1 mg SQ UD PRN; Protocol PRN Reason: Hypoglycemia Protocol Stop: 12/17/22 11:34 Glucose (Glucose 40% Gel 15 Gm Tube) 15 - 30 gm PO UD PRN; Protocol PRN Reason: Hypoglycemia Protocol Stop: 12/17/22 11:34 Glucose (Glucose 10 Tab/Tube) 4 - 8 tab PO UD PRN; Protocol PRN Reason: Hypoglycemia Treatment Stop: 12/17/22 11:34 Guaifenesin/Dextromethorphan (Guaifenesin/Dextrom Syrup 100mg/10mg 5ml Udc) 5 ml PO Q6H PRN PRN Reason: Cough Stop: 12/17/22 09:59 Last Admin: 11/18/22 21:03 Dose: 5 ml Remdesivir 100 mg/ Sodium (Chloride) 250 mls @ 250 mls/hr IV Q24H ANDREA Stop: 11/20/22 20:59 Last Infusion: 11/18/22 22:26 Dose: Infused Dexamethasone 6 mg/ Syringe 1.5 mls @ 1 mls/min IV DAILY ANDREA Stop: 11/27/22 08:59 Last Admin: 11/19/22 08:42 Dose: 1 mls/min Promethazine HCl 6.25 mg/ (Sodium Chloride) 50.25 mls @ 201 mls/hr IV Q6H PRN PRN Reason: Nausea And Vomiting Stop: 12/17/22 07:34 Last Infusion: 11/19/22 04:15 Dose: Infused Ceftriaxone Sodium 2,000 mg/ (Dextrose) 70 mls @ 100 mls/hr IV DAILY [facility]; Protocol Stop: 11/27/22 11:59 Last Infusion: 11/19/22 09:31 Dose: Infused Insulin Aspart (Insulin Aspart Per Unit) 0 units SC ACHS [facility] Stop: 12/17/22 16:29 Last Admin: 11/19/22 12:18 Dose: 3 units Ipratropium [place] (Ipratropium Hfa Inhaler (Combivent Respimat P&T Subs)) 1 puffs INH QIDR [facility]; Protocol Stop: 12/17/22 06:59 Last Admin: 11/19/22 10:06 Dose: 1 puffs Levalbuterol HCl (Levalbuterol Hcl 1.25 Mg/3 Ml Neb) 1.25 mg NEB Q4H PRN; Protocol PRN Reason: Shortness Of Breath Or Wheezing Stop: 12/17/22 06:14 Last Admin: 11/19/22 04:09 Dose: 1.25 mg Methimazole (Methimazole 5 Mg Tablet) 5 mg PO DAILY [facility] Stop: 12/17/22 08:59 Last Admin: 11/19/22 08:42 Dose: 5 mg Metoprolol Succinate (Metoprolol Succ 25mg Ext Rel Tab) 12.5 mg PO DAILY [facility] Stop: 12/17/22 08:59 Last Admin: 11/19/22 08:40 Dose: 12.5 mg Miscellaneous (Carbohydrates For Hypoglycemia ) 15 - 30 gm PO UD PRN PRN Reason: Hypoglycemia Protocol Stop: 12/17/22 11:34 Oxycodone HCl (Oxycodone Hcl Ir 5 Mg Tab (Immediate Release)) 5 mg PO Q4H PRN PRN Reason: Pain Stop: 11/30/22 20:03 Last Admin: 11/19/22 09:23 Dose: 5 mg Pantoprazole Sodium (Pantoprazole 40 Mg Tab) 40 mg PO DAILY ANDREA Stop: 12/17/22 08:59 Last Admin: 11/19/22 08:43 Dose: 40 mg Potassium Chloride (Potassium Chloride Crtab 20 Meq Tabcr) 20 meq PO DAILY ANDREA Stop: 12/17/22 08:59 Last Admin: 11/19/22 08:45 Dose: 20 meq Sertraline HCl (Sertraline Hcl 50 Mg Tablet) 25 mg PO DAILY ANDREA Stop: 12/17/22 08:59 Last Admin: 11/19/22 08:41 Dose: 25 mg Sucralfate (Sucralfate 1 Gm Tab) 1 gm PO ACHS ANDREA Stop: 12/16/22 20:59 Last Admin: 11/19/22 12:04 Dose: 1 gm (1) COPD (chronic obstructive pulmonary disease) COPD type: COPD with acute exacerbation Qualified Code(s): J44.1 - Chronic obstructive pulmonary disease with (acute) exacerbation
[2022-11-19] MEDS: guaiFENesin/DEXTROM SYRUP 100MG/10MG 5ML UDC PO PRN ×2 (15:03→21:50)
[2022-11-19] MEDS: ERTAPENEM SODIUM 1,000 MG in SYRINGE 0 ML IV SCH (17:46)
[2022-11-19] MEDS: REMDESIVIR 100 MG in SODIUM CHLORIDE 0.9% 230 ML IV SCH (19:58)
[2022-11-19] MEDS: ATORVASTATIN 40 MG TAB PO SCH (20:09)
[2022-11-19] MEDS: ENOXAPARIN INJ 40 MG/0.4 ML SYR SQ SCH (20:11)
[2022-11-19] MEDS: BIMATOPROST 0.01% OP SOLN 2.5 ML BTL OP SCH (20:12)
[2022-11-20] MEDS ORDERED: MoRPHine SULFATE 2 MG/ML CARP IV STA (01:53)
[2022-11-20] MEDS: Ipratropium HFA Inhaler (Combivent Respimat P&T Subs) INH SCH ×4 (06:57→19:22)
[2022-11-20] MEDS: Albuterol HFA 8 GM Inhaler (Combivent Respimat P&T Subs) INH SCH ×4 (06:57→19:22)
[2022-11-20] MEDS: oxyCODONE HCL IR 5 MG TAB (IMMEDIATE RELEASE) PO PRN ×2 (07:40→14:42)
[2022-11-20 07:46] LABS: Hematocrit (blood only) 27.8 % (37.0-47.0); Hemoglobin 8.8 g/dl (12.0-16.0); Mean Corpuscular Hemoglobin 27.8 pg (25.0-34.0); Mean Corpuscular Hgb Conc 31.7 g/dL (32.0-36.0); Mean Platelet Volume 10.2 fL (9.4-12.4); Platelet Count 393 K/uL (130-400); RDW Coefficient of Variation 13.8 % (11.5-14.5); RDW Standard Deviation 44.3 fL (36.4-46.3); Red Blood Count 3.16 M/uL (4.20-5.40); White Blood Count 10.47 K/ul (4.8-10.8)
[2022-11-20 08:03] LABS: BUN Creatinine Ratio 33.3 (10-20); Calcium 9.4 mg/dl (8.5-10.1); Creatinine Clr Calc Pharmacy 53.3 ml/min; Est GFR (African American) 68.5 ml/min; Est GFR (Non-African American) 59.1 ml/min; Magnesium 1.8 mg/dl (1.7-2.4); Potassium 3.9 mmol/L (3.5-5.1)
[2022-11-20] MEDS: SUCRALFATE 1 GM TAB PO SCH ×4 (09:00→22:01)
[2022-11-20] MEDS: ASPIRIN 81 MG ECTAB PO SCH (09:01)
[2022-11-20] MEDS: DOCUSATE SODIUM 100 MG CAP PO SCH ×2 (09:02→22:02)
[2022-11-20] MEDS: dexAMETHasone 6 MG in SYRINGE 0 ML IV SCH (09:02)
[2022-11-20] MEDS: DICYCLOMINE HCL 20 MG TAB PO SCH (09:02)
[2022-11-20] MEDS: FERROUS SULFATE 325 MG TAB PO SCH (09:03)
[2022-11-20] MEDS: methIMAzole 5 MG TABLET PO SCH (09:04)
[2022-11-20] MEDS: PANTOprazole 40 MG TAB PO SCH (09:05)
[2022-11-20] MEDS: SERTRALINE HCL 50 MG TABLET PO SCH (09:06)
[2022-11-20] MEDS: POTASSIUM CHLORIDE CRTAB 20 MEQ TABCR PO SCH (09:06)
[2022-11-20] MEDS: DORZOLAMIDE HCL 2% OPH SOLN 10 ML BTL OP SCH ×2 (09:08→22:04)
[2022-11-20] MEDS: guaiFENesin/DEXTROM SYRUP 100MG/10MG 5ML UDC PO PRN (09:08)
[2022-11-20] MEDS: INSULIN ASPART PER UNIT SC SCH ×4 (09:36→21:30)
[2022-11-20] MEDS: LIDOCAINE 5% 1 PATCH TD SCH (10:08)
[2022-11-20] MEDS: METOPROLOL SUCC 25MG EXT REL TAB PO SCH (10:08)
[2022-11-20] MEDS: ACETAMINOPHEN 500 MG TAB PO SCH ×2 (10:09→17:48)
[2022-11-20] MEDS: PROMETHAZINE HCL 6.25 MG in SODIUM CHLORIDE 0.9% 50 ML IV PRN (11:56)
--- NOTE | 2022-11-20 12:11 | XRay Report ---
XR lumbar spine 2-3V HISTORY: 81 years-old Female low back pain chronic low back pain without reported trauma COMPARISON: CT abdomen and pelvis 07/22/2022 TECHNIQUE: 3 views of the lumbar spine FINDINGS: Moderate to extensive colonic fecal retention. Vascular calcifications. Multilevel facet arthrosis, s evere at L4-L5 and L5-S1. Unchanged grade 1 anterolisthesis L4 on L5, likely secondary to chronic fac et arthrosis. Mild to moderate L4-L5 intervertebral disc space narrowing with mild spondylitic spurri ng. No acute fracture, subluxation or endplate erosion. IMPRESSION: 1. No acute fracture or subluxation identified. 2. Degenerative changes as above. 3. Grade 1 anterolisthesis L4 on L5 is unchanged, likely secondary to chronic facet arthrosis. ACT 112: Negative or not required by law. The above report was generated using voice recognition software. It may contain grammatical, syntax o r spelling errors. Electronically signed by: Gabe Aviles M.D. 11/20/2022 12:09 PM
--- NOTE | 2022-11-20 15:56 | Hospitalist Progress Note ---
Date of Service November 20, 2022 Assessment & Plan (1) Hypoglycemia: Plan: per Dr. Santiago's notes with addendum: History of type 2 diabetes mellitus; most recent A1c as per outpatient lab 6.8. She is on glimepiride 2 mg daily; Patient had hypoglycemic episode which resulted in unresponsiveness. She was brought to the ED;. Her blood glucose level was 61. Was given D10 infusion overnight and every 2 blood glucose checks Her blood glucoses improved to 150s to 200. Plan; She is also on dexamethasone for COVID infection which will increase her blood glucose level.on NovoLog for now. Given patient's age and comorbidities; patient A1c goal would be 7.5 to 8%. A1c is 6.7% We will stop glimepiride at discharge. She will follow-up with her primary care doctor to discuss long-term management for her type 2 diabetes mellitus. 11/20 BSG on the higher side (2) Acute on chronic respiratory failure with hypoxia: (3) COPD (chronic obstructive pulmonary disease): (4) COVID-19: Plan: Patient hypoxic on usual 2 L at 86%. Currently requiring 4 L of oxygen via nasal cannula on admission. Tested positive for [facility] to admission. Started on Paxlo vid. Patient had 4 doses of COVID-19 vaccine already In the ED, CTA chest negative for pulmonary embolism; scattered tree in bud nodules within right upper and lower lobe suggestive of infectious/inflammatory bronchiolitis. Plan; She is currently on dexamethasone 6 mg once daily and remdesivir. - feels short of breath intermittently -currently on 4L Provide supplemental oxygen as needed. 11/20 now on 2L NC continue Remdesivir + Decadron IV add Mucinex ESBL E.coli UTI Urinalysis shows greater than 30 WBC and 4+ bacteria. Blood culture was sent, and pt on empiric ceftriaxone. Patient reports history of ureteral stent placed during her hospitalization in [facility]. Chart review shows she underwent cystoscopy with bilateral stent placement in November 01. Renal ultrasound does not show any hydronephrosis. Patient has outpatient urology referral Urine culture positive for ESBL E. coli. Stopped ceftriaxone, switched to ertapenem 11/20 continue Ertapenem (5) Atrial fibrillation with RVR: Plan: On presentation, heart rate in the 130s, received diltiazem 20 mg IV with improvement in heart rate History of paroxysmal atrial fibrillation s/p watchman device - continue Metoprolol (6) Hyponatremia: Plan: Sodium 129 on admission; down trended to 127 -> now 133 Urine electrolytes, osmolarity and creatinine sent. Suspect hypovolemic hyponatremia given decreased oral intake. Na 133 (7) Chronic HFrEF (heart failure with reduced ejection fraction): (8) NICM (nonischemic cardiomyopathy): Plan: EF 40-45% on echo 06/2021 High-sensitivity troponin slightly elevated on admission; no delta difference. Likely demand ischemia. Holding diuretics for now. Obtained repeat echocardiogram. Resume Lasix when appropriate. (9) S/P colon resection: Plan: Recently admitted to [facility] for elective colon resection due to recurrent diverticulitis and colovesical fistula Wound care nurse consult to follow surgical wound. + Wound dehiscence. Discussed with wound care nurse at the bedside. no signs of infection continue daily wound care will consult Gen Surg Patient has follow-up appointment on November 26 with general surgery at [place] (10) Subclinical hyperthyroidism: Plan: TSH WNL Continue methimazole Plan Full code DVT prophylaxis Heparin [facility] She states she will prefer to go to [facility]. PT OT ordered. Admission and Anticipated Discharge Date Admission Date: November 16, 2022 Subjective ff up for COVID 19 infection, etc seen resting in bed, on 2 L daughters at bedside visiting states she is having low back pain- chronic but worse no leg weakness/numbness has some shortness of breath due to pain no cough, chest pain no abdominal pain, nausea/vomiting, fever/chills no other symptoms Review of Systems Review of Systems: all noted and negative except for above Physical Exam Physical Exam: General- oriented x 3, not in distress, speaks in sentences with no effort or accessory muscle use Eyes- anicteric Neck- no JVD Lungs- clear breath sounds bilaterally, no rales/wheezes Heart- normal rate, regular rhythm; no murmurs Abdomen- normal bowel sounds, nondistended, soft, nontender small wound dehiscence noted- no active drainage, no surrounding erythema/warmth/tenderness Extremities- no pretibial edema, no calf tenderness Neuro- alert, oriented x 3; no gross focal neurologic deficits Skin- warm & dry Results & Data Results & Data ([facility]) Vital Signs (Past 12 Hours) Vital Signs Temp Pulse Resp BP Pulse Ox O2 Del Method O2 Flow Rate 11/20/22 14:32 72 18 99 Nasal Cannula 2 11/20/22 11:59 36.4 C L 92 H 20 106/60 100 Nasal Cannula 2 11/20/22 11:43 91 H 18 96 Nasal Cannula 2 11/20/22 11:07 Nasal Cannula 2 11/20/22 09:56 36.9 C 99 H 20 122/72 91 Nasal Cannula 4 11/20/22 06:57 99 H 20 100 Nasal Cannula 4 all noted and reviewed including below (1) COPD (chronic obstructive pulmonary disease) COPD type: COPD with acute exacerbation Qualified Code(s): J44.1 - Chronic obstructive pulmonary disease with (acute) exacerbation
[2022-11-20] MEDS: MoRPHine SULFATE 4 MG/ML 1 ML CARP\\VIAL IV PRN ×2 (17:48→23:14)
[2022-11-20] MEDS: ERTAPENEM SODIUM 1,000 MG in SYRINGE 0 ML IV SCH (17:48)
--- NOTE | 2022-11-20 20:34 | Surgery Consultation ---
Date of Consultation November 20, 2022 Assessment & Plan (1) Wound dehiscence: The patient's wound does not appear grossly infected at this time. Would merely make recommend continuing care as directed by the wound care nurse with local wound care nurse/wound packing. Patient notes that she is scheduled to follow- up with her surgeon at [facility] on November 26. If the patient is discharged from the hospital by then we will will encourage her to keep that appointment for further wound care recommendations. History of Present Illness Reason for Consultation: Wound dehiscence Attending Physician: Carlos Gould MD History of Present Illness This is an 81-year-old female who was admitted to [facility] on 11/16/2022. She was admitted to [facility] upon presentation from [facility] where she was at for acute rehab. The patient was recently admitted to [facility] in [facility] on October 31 through secondary to elective colon resection as patient had an episode of recurrent diverticulitis with a colovesical fistula. Patient says that prior to her surgery she was noticing pneumaturia. Following this hospitalization she was at [facility] for rehab where patient developed increasing shortness of breath and tested positive for COVID and was ultimately started on Paxil bid. While at [facility] she was developing episodes of hypoglycemia and altered mental status and was therefore referred to the emergency department. Since being at [facility] the patient has been treated for atrial fibrillation with a rapid ventricular response. She was also noted to have a urinary tract infection for which she is being treated. General surgery has been asked to see her because one of her surgical incisions in the left groin had a a dehiscence. This has been followed by the wound care nurse and is currently being packed with iodoform gauze. The patient does note that the area is slightly tender to palpation. Allergies Allergy/AdvReac Type Severity Reaction Status Date / Time salmon oil Allergy Severe HIVES-REDDENED Verified 11/16/22 19:24 ALL OVER Iodinated Contrast Media Allergy Intermediate HIVES-GI Verified 11/16/22 19:24 SYMPTOMS valsartan Allergy Intermediate FAST HEART Verified 11/16/22 19:24 BEAT bupropion AdvReac Mild GI SYMPTOMS Verified 11/16/22 19:24 enalapril AdvReac Mild GI SYMPTOMS Verified 11/16/22 19:24 escitalopram AdvReac Mild GI SYMPTOMS Verified 11/16/22 19:24 metoprolol AdvReac Mild LOWERS Verified 11/16/22 19:24 PULSE RATE verapamil AdvReac Mild GI UPSET, Verified 11/16/22 19:24 fast heart rate Home Medications Medication Instructions Recorded Confirmed Type atorvastatin 40 mg tablet 40 mg PO HS 06/23/19 11/16/22 History cholecalciferol (vitamin D3) 25 2,000 unit PO QAM 06/23/19 11/16/22 History mcg (1,000 unit) capsule (Vitamin D3) docusate sodium 100 mg capsule 100 mg PO BID 06/23/19 11/16/22 History albuterol sulfate 2.5 mg/3 mL 2.5 mg inhalation BID PRN 09/25/19 11/16/22 History (0.083 %) solution for nebulization .WORSENING ASTHMA bimatoprost 0.01 % eye drops 1 drp OPB HS 09/25/19 11/16/22 History (Lumigan) ferrous sulfate 325 mg (65 mg 325 mg PO QAM 02/23/20 11/16/22 History iron) tablet (iron) aspirin 81 mg tablet,delayed 81 mg PO DAILY 02/05/21 11/16/22 History release (Kenzie Low Dose Aspirin) ipratropium 20 mcg-albuterol 100 1 puff inhalation QID 04/09/21 11/16/22 History mcg/actuation mist for inhalation (Combivent Respimat) potassium chloride 20 mEq 20 meq PO DAILY 04/09/21 11/16/22 History tablet,extended release(part/cryst) (Klor-Con M) dicyclomine 20 mg tablet 20 mg PO DAILY 01/14/22 11/16/22 History spironolactone 25 mg tablet 12.5 mg PO MOWEFR 01/14/22 11/16/22 History sertraline 25 mg tablet 25 mg PO DAILY 03/13/22 11/16/22 History albuterol sulfate 90 mcg/actuation 2 puff inhalation QID PRN 05/03/22 11/16/22 Rx aerosol inhaler (Ventolin HFA) Shortness Of Breath #6.7 grams furosemide 40 mg tablet 40 mg PO BID 05/31/22 11/16/22 History methimazole 5 mg tablet 5 mg PO DAILY 07/17/22 11/16/22 History metoprolol succinate 25 mg 12.5 mg PO DAILY 07/17/22 11/16/22 History tablet,extended release 24 hr dorzolamide 2 % eye drops 1 drp ophthalmic (eye) BID 11/16/22 11/16/22 History enoxaparin 40 mg/0.4 mL 40 mg subcut DAILY 11/16/22 11/16/22 History subcutaneous syringe (Lovenox) glimepiride 2 mg tablet 2 mg PO DAILY 11/16/22 11/16/22 History nirmatrelvir 300 mg (150 mg 0 ea PO .COMPLEX 11/16/22 11/16/22 History x2)-ritonavir 100 mg tablet,dose pack(EUA) (Paxlovid) oxycodone 5 mg tablet 5 mg PO Q4H PRN Pain 11/16/22 11/16/22 History pantoprazole 40 mg tablet,delayed 40 mg PO DAILY 11/16/22 11/16/22 History release sucralfate 1 gram tablet 1 g PO ACHS 11/16/22 11/16/22 History Patient History Medical History (Updated 11/20/22 @ 20:36 by Juancho Crawford PA-C) Aortic valve stenosis, mild Asthma Chris-tachy syndrome Chronic atrial fibrillation Chronic diastolic CHF (congestive heart failure) Chronic HFrEF (heart failure with reduced ejection fraction) Chronic respiratory failure with hypoxia and hypercapnia Colovesical fistula COPD (chronic obstructive pulmonary disease) Diabetes mellitus, type 2 Diverticulitis large intestine Esophageal reflux Glaucoma of both eyes Hyperlipidemia Hypertension Lower GI bleed NICM (nonischemic cardiomyopathy) On home oxygen therapy 2L N/C at all times and 4 L N/C at night JORDAN (obstructive sleep apnea) Sleep apnea Subclinical hyperthyroidism Subepithelial mass of stomach Surgical History (Updated 11/16/22 @ 19:24 by NIECY Trejo) H/O colonoscopy "04/2014 - diverticular disease throughout colon, internal hemorrhoids, polyp removed" History of appendectomy History of cardiac cath "YEARS AGO"NO BLOCKAGES/NO STENTS-F/U DR THOMSON History of cholecystectomy History of dilatation and curettage History of esophagogastroduodenoscopy (EGD) "04/2014 - normal" History of incisional hernia repair History of tooth extraction all teeth Hx of small bowel obstruction "11/2017 - Seen [facility] - surgical intervention" Nausea and vomiting after administration of anesthetic agent Presence of Watchman left atrial appendage closure device 11/2019 @ [facility] [address] Velez S/P colon resection Status post tonsillectomy and adenoidectomy Status post tubal ligation Family History Mother Breast cancer Father Heart disease Brother COPD (chronic obstructive pulmonary disease) Aunt Diabetes Son JORDAN (obstructive sleep apnea) Daughter Asthma Other No family history of adverse response to anesthesia No pertinent family history in first degree relatives 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 Smoking Status: Never smoker Second Hand Exposure: No; Do You Dip or Chew Tobacco: No; Hx Alcohol Use: No Hx Substance Use: No Preferred Language: Jordanian Communication Ability: Effective Sash Maker Required: No Beliefs That Will Affect Care: None marital status: / Current Living Situation: Alone Other Information That Helps Us Care for You: No Feels Safe at Home: Yes Safety Concerns: Feels Safe At This Time Assistive Devices: Cane, Denture - Upper, Glasses, Oxygen - Continuous and Walker Review of Systems Constitutional: no fever and no chills Eyes: no diplopia Ear, Nose, Mouth, Throat: no ear pain Respiratory: no cough Cardiovascular: no chest pain Gastrointestinal: + abdominal pain (Tenderness near left groin incision) Genitourinary: no dysuria Musculoskeletal: no back pain Integumentary: no rash Neurologic: no localized weakness Physical Exam Physical Exam: The patient was noted to have a wound in her left groin with approximately a 2 to 3 cm area of dehiscence at the lateralmost aspect. This is currently packed with iodoform gauze. There is no malodorous discharge. There is no gross purulence noted. There is no crepitus noted in the soft tissue. There is a small amount of erythema along the wound edges. The area was not warm but was slightly tender to palpation. Constitutional: WD/WN, vitals as above Eyes: no conjunctival abnormality ENMT: Ears: no external ear abnormality Neck: trachea midline Respiratory: normal respiratory effort; no respiratory distress and no labored breathing Cardiovascular: Rate/Rhythm: regular rate and regular rhythm Gastrointestinal (Abdomen): Abdomen is soft, nonrigid, nondistended. No rebound tenderness or guarding was noted. Please see above for description of patient's left groin wound Musculoskeletal: No calf tenderness Skin: no rashes Neurologic: moves all extremities Psychiatric: A+Ox3, euthymic affect Results & Data ([facility]) Vital Signs (Past 12 Hours) Vital Signs Temp Pulse Resp BP Pulse Ox O2 Del Method O2 Flow Rate 11/20/22 19:49 37.4 C 79 20 103/66 98 Nasal Cannula 2 11/20/22 19:22 18 96 Nasal Cannula 2 11/20/22 16:03 36.6 C 78 22 115/72 100 Nasal Cannula 2 11/20/22 14:32 72 18 99 Nasal Cannula 2 11/20/22 11:59 36.4 C L 92 H 20 106/60 100 Nasal Cannula 2 11/20/22 11:43 91 H 18 96 Nasal Cannula 2 11/20/22 11:07 Nasal Cannula 2 11/20/22 09:56 36.9 C 99 H 20 122/72 91 Nasal Cannula 4 PG Care Time/CCT Total # of Minutes Spent Total Time Spent with Patient: Total time spent is greater than 50% in coordination of care (as documented) at patient's floor/unit and/or counseling patient: Coding Level of Care Code INP/OBS CONSULT LVL 3, 45 MIN Diagnoses Wound dehiscence T81.30XA
[2022-11-20] MEDS: REMDESIVIR 100 MG in SODIUM CHLORIDE 0.9% 230 ML IV SCH (21:58)
[2022-11-20] MEDS: guaiFENesin 600 MG TABCR PO SCH (22:02)
[2022-11-20] MEDS: ENOXAPARIN INJ 40 MG/0.4 ML SYR SQ SCH (22:02)
[2022-11-20] MEDS: ATORVASTATIN 40 MG TAB PO SCH (22:02)
[2022-11-20] MEDS: BIMATOPROST 0.01% OP SOLN 2.5 ML BTL OP SCH (22:05)
[2022-11-21] MEDS: ACETAMINOPHEN 500 MG TAB PO SCH ×3 (01:30→17:48)
[2022-11-21] MEDS: LEVALBUTEROL HCL 1.25 MG/3 ML NEB NEB PRN (03:53)
[2022-11-21] MEDS: oxyCODONE HCL IR 5 MG TAB (IMMEDIATE RELEASE) PO PRN ×2 (06:04→19:51)
[2022-11-21] MEDS: Ipratropium HFA Inhaler (Combivent Respimat P&T Subs) INH SCH ×4 (07:24→19:20)
[2022-11-21] MEDS: Albuterol HFA 8 GM Inhaler (Combivent Respimat P&T Subs) INH SCH ×4 (07:25→19:19)
[2022-11-21] MEDS: INSULIN ASPART PER UNIT SC SCH ×4 (07:57→20:02)
[2022-11-21 07:59] LABS: Creatinine Clr Calc Pharmacy 64.3 ml/min; Est GFR (African American) 85.4 ml/min; Est GFR (Non-African American) 73.7 ml/min
[2022-11-21] MEDS: POTASSIUM CHLORIDE CRTAB 20 MEQ TABCR PO SCH (08:03)
[2022-11-21] MEDS: SUCRALFATE 1 GM TAB PO SCH ×4 (08:04→19:54)
[2022-11-21] MEDS: ASPIRIN 81 MG ECTAB PO SCH (08:05)
[2022-11-21] MEDS: dexAMETHasone 6 MG in SYRINGE 0 ML IV SCH (08:05)
[2022-11-21] MEDS: DOCUSATE SODIUM 100 MG CAP PO SCH ×2 (08:06→19:51)
[2022-11-21] MEDS: DICYCLOMINE HCL 20 MG TAB PO SCH (08:06)
[2022-11-21] MEDS: FERROUS SULFATE 325 MG TAB PO SCH (08:07)
[2022-11-21] MEDS: guaiFENesin 600 MG TABCR PO SCH ×2 (08:07→19:53)
[2022-11-21] MEDS: DORZOLAMIDE HCL 2% OPH SOLN 10 ML BTL OP SCH ×2 (08:07→19:51)
[2022-11-21] MEDS: LIDOCAINE 5% 1 PATCH TD SCH (08:08)
[2022-11-21] MEDS: METOPROLOL SUCC 25MG EXT REL TAB PO SCH (08:09)
[2022-11-21] MEDS: methIMAzole 5 MG TABLET PO SCH (08:09)
[2022-11-21] MEDS: PANTOprazole 40 MG TAB PO SCH (08:10)
[2022-11-21] MEDS: SERTRALINE HCL 50 MG TABLET PO SCH (08:10)
[2022-11-21] MEDS: guaiFENesin/DEXTROM SYRUP 100MG/10MG 5ML UDC PO PRN (08:11)
[2022-11-21] MEDS: PROMETHAZINE HCL 6.25 MG in SODIUM CHLORIDE 0.9% 50 ML IV PRN (11:05)
--- NOTE | 2022-11-21 15:59 | Hospitalist Progress Note ---
Date of Service November 21, 2022 Assessment & Plan (1) Hypoglycemia: Plan: per Dr. Santiago's notes with addendum: History of type 2 diabetes mellitus; most recent A1c as per outpatient lab 6.8. She is on glimepiride 2 mg daily; Patient had hypoglycemic episode which resulted in unresponsiveness. She was brought to the ED;. Her blood glucose level was 61. Was given D10 infusion overnight and every 2 blood glucose checks Her blood glucoses improved to 150s to 200. Plan; She is also on dexamethasone for COVID infection which will increase her blood glucose level.on NovoLog for now. Given patient's age and comorbidities; patient A1c goal would be 7.5 to 8%. A1c is 6.7% We will stop glimepiride at discharge. She will follow-up with her primary care doctor to discuss long-term management for her type 2 diabetes mellitus. 11/20 BSG on the higher side (2) Acute on chronic respiratory failure with hypoxia: (3) COPD (chronic obstructive pulmonary disease): (4) COVID-19: Plan: Patient hypoxic on usual 2 L at 86%. Currently requiring 4 L of oxygen via nasal cannula on admission. Tested positive for COVID-19 at [facility] prior to admission. Started on Paxlo vid. Patient had 4 doses of COVID-19 vaccine already In the ED, CTA chest negative for pulmonary embolism; scattered tree in bud nodules within right upper and lower lobe suggestive of infectious/inflammatory bronchiolitis. Plan; She is currently on dexamethasone 6 mg once daily and remdesivir. - feels short of breath intermittently -currently on 4L Provide supplemental oxygen as needed. 11/21 now on 2L NC clinically improving gradually completed Remdesivir + Decadron continue Mucinex Lovenox SC daily ESBL E.coli UTI Urinalysis shows greater than 30 WBC and 4+ bacteria. Blood culture was sent, and pt on empiric ceftriaxone. Patient reports history of ureteral stent placed during her hospitalization in [facility]. Chart review shows she underwent cystoscopy with bilateral stent placement in November 01. Renal ultrasound does not show any hydronephrosis. Patient has outpatient urology referral Urine culture positive for ESBL E. coli. Stopped ceftriaxone, switched to ertapenem 11/21 continue Ertapenem (5) Atrial fibrillation with RVR: Plan: On presentation, heart rate in the 130s, received diltiazem 20 mg IV with improvement in heart rate History of paroxysmal atrial fibrillation s/p watchman device - continue Metoprolol (6) Hyponatremia: Plan: Sodium 129 on admission; down trended to 127 -> now 133 Urine electrolytes, osmolarity and creatinine sent. Suspect hypovolemic hyponatremia given decreased oral intake. Na 133 (7) Chronic HFrEF (heart failure with reduced ejection fraction): (8) NICM (nonischemic cardiomyopathy): Plan: EF 40-45% on echo 06/2021 High-sensitivity troponin slightly elevated on admission; no delta difference. Likely demand ischemia. resume Lasix (9) S/P colon resection: Plan: Recently admitted to [facility] [place] for elective colon resection due to recurrent diverticulitis and colovesical fistula no signs of infection continue daily wound care consulted Gen Surg Patient has follow-up appointment on November 26 with general surgery at [place] (10) Subclinical hyperthyroidism: Plan: TSH WNL Continue methimazole Plan Full code DVT prophylaxis Heparin Dispositionpatient does not want to go back to [facility]. She states she will prefer to go to [facility]. PT OT ordered. Admission and Anticipated Discharge Date Admission Date: November 16, 2022 Subjective ff up for Covid 19 infection, etc seen resting in bed, on 2 L states she feels somewhat better compared to yesterday breathing improving still has cough- dry back pain improving no abdominal pain, nausea no other symptoms Review of Systems Review of Systems: all noted and negative except for above Physical Exam Physical Exam: General- oriented x 3, not in distress, speaks in sentences with no effort or accessory muscle use Eyes- anicteric Neck- no JVD Lungs- clear BS bilaterally, no rales/wheezes Heart- normal rate, regular rhythm; no murmurs Abdomen- normal bowel sounds, nondistended, soft, nontender Extremities- no pretibial edema, no calf tenderness Neuro- alert, oriented x 3; no gross focal neurologic deficits Skin- warm & dry Results & Data Results & Data ([facility]) Vital Signs (Past 12 Hours) Vital Signs Temp Pulse Pulse Resp BP Pulse Ox O2 Del Method 11/21/22 15:47 80 18 98 Nasal Cannula 11/21/22 15:44 79 11/21/22 12:12 36.8 C 100 H 18 140/89 98 Nasal Cannula 11/21/22 11:40 90 18 98 Nasal Cannula 11/21/22 09:24 Nasal Cannula 11/21/22 07:37 36.6 C 73 20 109/63 99 Nasal Cannula 11/21/22 07:25 80 18 98 Nasal Cannula O2 Flow Rate 11/21/22 15:47 2 11/21/22 15:44 11/21/22 12:12 2 11/21/22 11:40 2 11/21/22 09:24 2 11/21/22 07:37 2 11/21/22 07:25 2 (1) COPD (chronic obstructive pulmonary disease) COPD type: COPD with acute exacerbation Qualified Code(s): J44.1 - Chronic obstructive pulmonary disease with (acute) exacerbation
[2022-11-21] MEDS: BENZONATATE 100 MG CAPSULE PO PRN (17:48)
[2022-11-21] MEDS: FUROSEMIDE 40 MG TAB PO SCH (17:48)
[2022-11-21] MEDS: ERTAPENEM SODIUM 1,000 MG in SYRINGE 0 ML IV SCH (17:48)
[2022-11-21] MEDS: MoRPHine SULFATE 4 MG/ML 1 ML CARP\\VIAL IV PRN (18:45)
[2022-11-21] MEDS: ENOXAPARIN INJ 40 MG/0.4 ML SYR SQ SCH (19:41)
[2022-11-21] MEDS: BIMATOPROST 0.01% OP SOLN 2.5 ML BTL OP SCH (19:52)
[2022-11-21] MEDS: ATORVASTATIN 40 MG TAB PO SCH (19:53)
--- NOTE | 2022-11-21 22:05 | Communication Note ---
Date of Service: November 21, 2022 I was called by RN at approximately 9:45 PM the patient was concerned that she may be bleeding from her left groin wound. I responded to the bedside within 5 minutes. The patient has been noted to be afebrile the wound was examined and there is no active bleeding. The wound was packed with gauze at the time of my exam. I have removed the packing and examined the wound closer. There is no active bleeding noted I was unable to express any fluid or pus from the wound. There is some small amount of surrounding erythema from the wound edges. After examined the wound and verifying no bleeding I repacked the wound with quarter inch ribbon gauze and covered with a dry sterile dressing. We will continue local wound care.
[2022-11-22] MEDS: ACETAMINOPHEN 500 MG TAB PO SCH ×3 (00:15→17:29)
[2022-11-22] MEDS: MoRPHine SULFATE 4 MG/ML 1 ML CARP\\VIAL IV PRN ×4 (01:51→22:23)
[2022-11-22] MEDS: PROMETHAZINE HCL 6.25 MG in SODIUM CHLORIDE 0.9% 50 ML IV PRN ×2 (03:23→20:08)
[2022-11-22] MEDS: oxyCODONE HCL IR 5 MG TAB (IMMEDIATE RELEASE) PO PRN ×3 (06:18→20:07)
[2022-11-22] MEDS: Ipratropium HFA Inhaler (Combivent Respimat P&T Subs) INH SCH ×4 (07:09→19:53)
[2022-11-22] MEDS: Albuterol HFA 8 GM Inhaler (Combivent Respimat P&T Subs) INH SCH ×4 (07:09→19:53)
[2022-11-22] MEDS: INSULIN ASPART PER UNIT SC SCH ×4 (08:00→23:26)
[2022-11-22 08:24] LABS: BUN Creatinine Ratio 35.3 (10-20); Calcium 8.6 mg/dl (8.5-10.1); Creatinine Clr Calc Pharmacy 72.4 ml/min; Est GFR (African American) 93.8 ml/min; Est GFR (Non-African American) 80.9 ml/min; Potassium 3.6 mmol/L (3.5-5.1)
[2022-11-22] MEDS: ASPIRIN 81 MG ECTAB PO SCH (08:45)
[2022-11-22] MEDS: dexAMETHasone 6 MG in SYRINGE 0 ML IV SCH (08:45)
[2022-11-22] MEDS: DOCUSATE SODIUM 100 MG CAP PO SCH ×2 (08:45→20:13)
[2022-11-22] MEDS: SUCRALFATE 1 GM TAB PO SCH ×4 (08:45→20:13)
[2022-11-22] MEDS: DORZOLAMIDE HCL 2% OPH SOLN 10 ML BTL OP SCH ×2 (08:45→20:14)
[2022-11-22] MEDS: POTASSIUM CHLORIDE CRTAB 20 MEQ TABCR PO SCH (08:46)
[2022-11-22] MEDS: METOPROLOL SUCC 25MG EXT REL TAB PO SCH (08:46)
[2022-11-22] MEDS: DICYCLOMINE HCL 20 MG TAB PO SCH (08:46)
[2022-11-22] MEDS: guaiFENesin 600 MG TABCR PO SCH ×2 (08:46→20:14)
[2022-11-22] MEDS: FERROUS SULFATE 325 MG TAB PO SCH (08:46)
[2022-11-22] MEDS: SERTRALINE HCL 50 MG TABLET PO SCH (08:47)
[2022-11-22] MEDS: methIMAzole 5 MG TABLET PO SCH (08:47)
[2022-11-22] MEDS: LIDOCAINE 5% 1 PATCH TD SCH (08:47)
[2022-11-22] MEDS: PANTOprazole 40 MG TAB PO SCH (08:47)
[2022-11-22] MEDS: FUROSEMIDE 40 MG TAB PO SCH ×2 (08:48→17:29)
[2022-11-22] MEDS: BENZONATATE 100 MG CAPSULE PO PRN ×2 (08:59→20:07)
--- NOTE | 2022-11-22 14:53 | Discharge Summary ---
Discharge Summary Date of Service November 22, 2022 Notes For Next Care Provider Medication Changes From Visit please refer to assessment and plan Admission HPI Per Admitting Provider 81-year-old female with PMH DM type II, chronic hypoxic respiratory failure on 2 L of oxygen, asthma, COPD, HFrEF, HTN, paroxysmal atrial fibrillation s/p watchman device, and other problems listed below who presents to the ED from [facility] for evluation of altered mental status. Patient recently admitted to [facility] 10/31 through 11/11 for elective colon resection for recurrent diverticulitis and colovesical fistula. Patient was discharged to [facility] for rehab. Patient has been doing generally well since at [facility]. She developed increasing shortness of breath yesterday and tested positive for COVID-19. Patient was started on Paxlovid. Patient also developed episodes of hypoglycemia last evening. Patient takes glimepiride 2 mg daily with last dose being yesterday morning. This morning, when patient's daughter came to visit her, she found her to be minimally responsive. Patient was again found to be hypoglycemic in the 40s. EMS was called and patient was brought to the ED for further evaluation. No seizure-like activity reported. Patient denies chest pain and palpitations. Reports she has had a poor appetite recently however denies abdominal pain, nausea, vomiting, diarrhea. No urinary symptoms. In the ED, patient glucose was found to be 61. She was given D50. Glucose again dropped to 57. Patient was given orange juice and a sandwich. Patient was also found to be hypoxic on usual 2 L 86%. She is currently requiring 4 L of oxygen via nasal cannula. CTA chest negative for pulmonary embolism, shows scattered tree-in-bud nodules. Patient was also given IV dexamethasone. She was in atrial fibrillation with RVR on presentation and given diltiazem 20 mg IV with improvement in heart rate. Principal Dx & Hospital Course #1 = Principal Diagnosis (1) Hypoglycemia: per Dr. Santiago's notes with addendum: History of type 2 diabetes mellitus; most recent A1c as per outpatient lab 6.8. She is on glimepiride 2 mg daily; Patient had hypoglycemic episode which resulted in unresponsiveness. She was brought to the ED;. Her blood glucose level was 61. Was given D10 infusion overnight and every 2 blood glucose checks Her blood glucoses improved to 150s to 200. Plan; She is also on dexamethasone for COVID infection which will increase her blood glucose level.on NovoLog for now. Given patient's age and comorbidities; patient A1c goal would be 7.5 to 8%. A1c is 6.7% We will stop glimepiride at discharge. She will follow-up with her primary care doctor to discuss long-term management for her type 2 diabetes mellitus. 11/22 113--> 158 (2) Acute on chronic respiratory failure with hypoxia: (3) COPD (chronic obstructive pulmonary disease): (4) COVID-19: Patient hypoxic on usual 2 L at 86%. Currently requiring 4 L of oxygen via nasal cannula on admission. Tested positive for [facility] to [facility]. Started on Paxlovid. Patient had 4 doses of COVID-19 vaccine already In the ED, CTA chest negative for pulmonary embolism; scattered tree in bud nodules within right upper and lower lobe suggestive of infectious/inflammatory bronchiolitis. Plan; She is currently on dexamethasone 6 mg once daily and remdesivir. - feels short of breath intermittently -currently on 4L Provide supplemental oxygen as needed. 11/22 now on 2L NC clinically improving gradually completed Remdesivir x 5 days on Decadron 6mg IV day 6 continue Mucinex Lovenox SC daily ESBL E.coli UTI Urinalysis shows greater than 30 WBC and 4+ bacteria. Blood culture was sent, and pt on empiric ceftriaxone. Patient reports history of ureteral stent placed during her hospitalization in [facility]. Chart review shows she underwent cystoscopy with bilateral stent placement in November 01. Renal ultrasound does not show any hydronephrosis. Patient has outpatient urology referral Urine culture positive for ESBL E. coli. Stopped ceftriaxone, switched to ertapenem 11/22 continue Ertapenem Day # 4 (5) Atrial fibrillation with RVR: On presentation, heart rate in the 130s, received diltiazem 20 mg IV with improvement in heart rate History of paroxysmal atrial fibrillation s/p watchman device - continue Metoprolol (6) Pulmonary nodules/lesions, multiple: seen on CT chest: IMPRESSION: 1. Cardiomegaly without pulmonary emboli identified. 2. Suggestion of pulmonary arterial hypertension. 3. Scattered tree-in-bud nodules within the right upper and lower lobes are suggestive of an infectious or inflammatory bronchiolitis. Additional scattered pulmonary nodules measuring 3-4 mm also likely infectious or inflammatory. 4. No lymphadenopathy. Please refer to below summary of Fleischner criteria recommendations for follow- up of incidental CT nodules (Sammi Thompson, Guidelines for management of small pulmonary nodules detected on CT scans: A statement from the Fleischner Society, Radiology 237: [id number].) SOLID NODULES Multiple nodules size: <6 mm * Low risk patients: no routine follow-up * high risk patients: optional CT at 12 months Note: newly detected indeterminate nodule in persons 35 years of age or older. * Low risk patients: minimal or absent history of smoking and/or other known risk factors * high risk patients: history of smoking or of other known risk factors (e.g. first degree relative with lung cancer, or exposure to asbestos, radon, uranium) * if a nodule up to 8 mm is partly solid or is ground glass further follow-up is required after 24 months to exclude possible slow growing adenocarcinoma (ANAIS) ACT 112: Negative or not required by law. (7) Hyponatremia: Sodium 129 on admission; down trended to 127 -> now 133 Urine electrolytes, osmolarity and creatinine sent. Suspect hypovolemic hyponatremia given decreased oral intake. Na 133 (8) Chronic HFrEF (heart failure with reduced ejection fraction): (9) NICM (nonischemic cardiomyopathy): EF 40-45% on echo 06/2021 High-sensitivity troponin slightly elevated on admission; no delta difference. Likely demand ischemia. resume Lasix (10) S/P colon resection: Recently admitted to [facility] for elective colon resection due to recurrent diverticulitis and colovesical fistula no signs of infection continue daily wound care consulted Gen Surg 11/22 progression of wound dehiscence noted by Gen Surg - intestines visualized recommend transfer to [facility] discussed with Dr. Alcocer, who kindly accepted the patient (11) Subclinical hyperthyroidism: TSH WNL Continue methimazole Plan Full code DVT prophylaxis Lovenox Disposition transfer to [facility] Discharge Exam General- oriented x 3, not in distress, speaks in sentences with no effort or accessory muscle use Eyes- anicteric Neck- no JVD Lungs- clear BS bilaterally, no rales/wheezes Heart- normal rate, regular rhythm; no murmurs Abdomen- normal bowel sounds, nondistended, soft, nontender Extremities- no pretibial edema, no calf tenderness Neuro- alert, oriented x 3; no gross focal neurologic deficits Skin- warm & dry Updated Medication List Medication Instructions Recorded Confirmed Type atorvastatin 40 mg tablet 40 mg PO HS 06/23/19 11/16/22 History cholecalciferol (vitamin D3) 25 2,000 unit PO QAM 06/23/19 11/16/22 History mcg (1,000 unit) capsule (Vitamin D3) docusate sodium 100 mg capsule 100 mg PO BID 06/23/19 11/16/22 History albuterol sulfate 2.5 mg/3 mL 2.5 mg inhalation BID PRN 09/25/19 11/16/22 History (0.083 %) solution for nebulization .WORSENING ASTHMA bimatoprost 0.01 % eye drops 1 drp OPB HS 09/25/19 11/16/22 History (Lumigan) ferrous sulfate 325 mg (65 mg 325 mg PO QAM 02/23/20 11/16/22 History iron) tablet (iron) aspirin 81 mg tablet,delayed 81 mg PO DAILY 02/05/21 11/16/22 History release (Kenzie Low Dose Aspirin) ipratropium 20 mcg-albuterol 100 1 puff inhalation QID 04/09/21 11/16/22 History mcg/actuation mist for inhalation (Combivent Respimat) potassium chloride 20 mEq 20 meq PO DAILY 04/09/21 11/16/22 History tablet,extended release(part/cryst) (Klor-Con M) dicyclomine 20 mg tablet 20 mg PO DAILY 01/14/22 11/16/22 History spironolactone 25 mg tablet 12.5 mg PO MOWEFR 01/14/22 11/16/22 History sertraline 25 mg tablet 25 mg PO DAILY 03/13/22 11/16/22 History albuterol sulfate 90 mcg/actuation 2 puff inhalation QID PRN 05/03/22 11/16/22 Rx aerosol inhaler (Ventolin HFA) Shortness Of Breath #6.7 grams furosemide 40 mg tablet 40 mg PO BID 05/31/22 11/16/22 History methimazole 5 mg tablet 5 mg PO DAILY 07/17/22 11/16/22 History metoprolol succinate 25 mg 12.5 mg PO DAILY 07/17/22 11/16/22 History tablet,extended release 24 hr dorzolamide 2 % eye drops 1 drp ophthalmic (eye) BID 11/16/22 11/16/22 History enoxaparin 40 mg/0.4 mL 40 mg subcut DAILY 11/16/22 11/16/22 History subcutaneous syringe (Lovenox) glimepiride 2 mg tablet 2 mg PO DAILY 11/16/22 11/16/22 History nirmatrelvir 300 mg (150 mg 0 ea PO .COMPLEX 11/16/22 11/16/22 History x2)-ritonavir 100 mg tablet,dose pack(EUA) (Paxlovid) oxycodone 5 mg tablet 5 mg PO Q4H PRN Pain 11/16/22 11/16/22 History pantoprazole 40 mg tablet,delayed 40 mg PO DAILY 11/16/22 11/16/22 History release sucralfate 1 gram tablet 1 g PO ACHS 11/16/22 11/16/22 History albuterol sulfate 90 mcg/actuation 1 puff inhalation QIDR 7 days #8.5 11/22/22 Rx aerosol inhaler (Ventolin HFA) grams ertapenem 1 gram solution for 1 g IV DAILY 7 days #10 ea 11/22/22 Rx injection guaifenesin 600 mg tablet, 600 mg PO Q12 7 days #14 tabs 11/22/22 Rx extended release 12 hr (Mucinex) ipratropium bromide 17 1 puff inhalation QIDR 7 days 11/22/22 Rx mcg/actuation HFA aerosol inhaler #12.9 grams (Atrovent HFA) lidocaine 5 % topical patch 1 patch transdermal QAM 7 days #15 11/22/22 Rx ea Hospital Stay Data Consultations 11/16/22 18:10 ED Decision to Admit Stat 11/20/22 16:53 Consult General Surgery Routine Diagnostic Imagining Performed 11/16/22 14:53 CT angio chest PE protocol Stat CT angio chest PE protocol CT DOSE: 636.65 mGy.cm HISTORY: 81 years-old Female with PE. Acute shortness of breath. COVID Positive. TECHNIQUE: Multiple CTA images of the chest were obtained after the intravenous administration of 98 ml Optiray. Coronal and sagittal MIPS were obtained from the axial data set and were submitted for review. All measurements were obtained according to NASCET criteria. A dose lowering technique was utilized adhering to the principles of ALARA. COMPARISON: CT abdomen and pelvis 07/22/2022 FINDINGS: CTA: Moderate cardiomegaly without pericardial effusion. Left atrial exclusion device. Moderate coronary artery calcifications. Atherosclerosis of the thoracic aorta without aneurysm. Dilated main pulmonary artery, 4.2 cm. The segmental and subsegmental pulmonary arterial branches are not well evaluated secondary to contrast bolus timing and respiratory motion artifact. No central pulmonary emboli identified. CT CHEST: No thyroid nodule. No lymphadenopathy identified. No pneumothorax, pleural effusion or overt pulmonary edema. 4 mm subpleural solid nodule of the right upper lobe, image 212. A few additional scattered 3-4 mm nodular foci the bilateral lungs with mild tree-in-bud nodules of the basal right lower lobe and right upper lobe. Subsegmental linear bibasilar consolidation. Central airways are patent. Mild bronchial wall thickening. 1.8 cm left gland adenoma. Unremarkable soft tissues. Degenerative changes of the shoulders and spine. IMPRESSION: 1. Cardiomegaly without pulmonary emboli identified. 2. Suggestion of pulmonary arterial hypertension. 3. Scattered tree-in-bud nodules within the right upper and lower lobes are suggestive of an infectious or inflammatory bronchiolitis. Additional scattered pulmonary nodules measuring 3-4 mm also likely infectious or inflammatory. 4. No lymphadenopathy. Please refer to below summary of Fleischner criteria recommendations for follow- up of incidental CT nodules (Sammi Thompson, Guidelines for management of small pulmonary nodules detected on CT scans: A statement from the Fleischner Society, Radiology 237: [phone].) SOLID NODULES Multiple nodules size: <6 mm * Low risk patients: no routine follow-up * high risk patients: optional CT at 12 months Note: newly detected indeterminate nodule in persons 35 years of age or older. * Low risk patients: minimal or absent history of smoking and/or other known risk factors * high risk patients: history of smoking or of other known risk factors (e.g. first degree relative with lung cancer, or exposure to asbestos, radon, uranium) * if a nodule up to 8 mm is partly solid or is ground glass further follow-up is required after 24 months to exclude possible slow growing adenocarcinoma (ANAIS) ACT 112: Negative or not required by law. The above report was generated using voice recognition software. It may contain grammatical, syntax or spelling errors. 11/16/22 18:05 US Renal Bladder [US renal/blad retro comp] Routine RENAL ULTRASOUND HISTORY: Follow up study in a patient with history of ureteral stents hx BL ureteral stenting COMPARISON: CT abdomen and pelvis 07/22/2022 FINDINGS: Right kidney: 9.7 No hydronephrosis. Cyst of the right kidney measure up to 2.4 cm. Normal corticomedullary differentiation and cortical thickness. Left kidney: 9.6 No hydronephrosis. Normal corticomedullary differentiation and cortical thickness. Bladder: Decompressed urinary bladder. IMPRESSION: 1. No renal calculi or hydronephrosis identified. 2. Bilateral renal cysts redemonstrated. ACT 112: Negative or not required by law. Pending Results Patient Have Any Pending Studies at Discharge: No Discharge Instructions Given to Patient (Per Discharging Provider) PLEASE REFER TO DISCHARGE SUMMARY. Total Time Total Time Spent Total Time Spent (In Minutes): > 30 minutes
[2022-11-22] MEDS: ERTAPENEM SODIUM 1,000 MG in SYRINGE 0 ML IV SCH (16:08)
--- NOTE | 2022-11-22 16:38 | Surgery Progress Note ---
Date of Service November 22, 2022 Assessment & Plan (1) Dehiscence of fascia: Plan: 81-year-old female with COVID and recent abdominal surgery at [place] [facility] for colovesicular fistula, now with fascial dehiscence. Wound was dressed with moistened lap pad followed by a dry lap pad followed by ABDs and an Ioban dressing. Abdominal binder was placed. Discussed with primary team and they are coordinating transfer back to [facility] for further evaluation. Recommend transfer to [facility] for fascial dehiscence following recent surgery and COVID infection Would recommend dressing change if not transferred within [address] Garcia covering over weekend Admission and Anticipated Discharge Date Admission Date: November 16, 2022 Subjective 81-year-old female status post colovesicular fistula takedown at [facility] approximately 2 weeks ago. She was admitted with COVID and complex UTI. During her stay her wound began to have some opening superficially. Last night she had increased drainage from her wound, and our surgical PA evaluated. On my rounds today it was evident that the fascia had partially dehisced and that there was bowel exposed. Physical Exam Constitutional: WD/WN, vitals as above + obese Gastrointestinal (Abdomen): Percussion/Palpation: + abdomen tender (Appropriately) 1 to 2 cm opening at superior part of incision. Finger probes down to below fascia. Wound was packed with a moistened lap pad down to the level of the fascia followed by a dry lap pad with ABDs and an Ioban dressing. An abdominal binder was placed. Results & Data ([facility]) Vital Signs (Past 12 Hours) Vital Signs Temp Pulse Pulse Resp BP BP Pulse Ox 11/22/22 16:00 36.7 C 80 20 116/69 99 11/22/22 15:17 79 11/22/22 14:26 78 18 97 11/22/22 11:46 37.2 C 84 19 106/70 97 11/22/22 11:19 82 18 97 11/22/22 09:00 104 H 11/22/22 09:00 11/22/22 07:53 36.7 C 78 18 113/63 97 11/22/22 07:09 83 18 99 O2 Del Method O2 Flow Rate 11/22/22 16:00 Nasal Cannula 2 11/22/22 15:17 11/22/22 14:26 Nasal Cannula 2 11/22/22 11:46 Nasal Cannula 2.0 11/22/22 11:19 Nasal Cannula 2 11/22/22 09:00 11/22/22 09:00 Nasal Cannula 2 11/22/22 07:53 Nasal Cannula 2.0 11/22/22 07:09 Nasal Cannula 2 PG Care Time/CCT Total # of Minutes Spent Total Time Spent with Patient: Total time spent is greater than 50% in coordination of care (as documented) at patient's floor/unit and/or counseling patient: Coding Level of Care Code 69067 SUB INP/OBS CARE 2/35MIN Diagnoses Dehiscence of fascia T81.30XA
[2022-11-22] MEDS: ENOXAPARIN INJ 40 MG/0.4 ML SYR SQ SCH ×2 (20:13→20:21)
[2022-11-22] MEDS: ATORVASTATIN 40 MG TAB PO SCH (20:14)
[2022-11-22] MEDS ORDERED: Nursing to Pharmacy Communication SCH (20:45)
[2022-11-22] MEDS: BIMATOPROST 0.01% OP SOLN 2.5 ML BTL OP SCH (21:52)
[2022-11-23] MEDS: ACETAMINOPHEN 500 MG TAB PO SCH ×2 (01:19→08:52)
[2022-11-23] MEDS: PROMETHAZINE HCL 6.25 MG in SODIUM CHLORIDE 0.9% 50 ML IV PRN (02:52)
[2022-11-23] MEDS: MoRPHine SULFATE 4 MG/ML 1 ML CARP\\VIAL IV PRN ×2 (04:30→11:10)
[2022-11-23] MEDS: INSULIN ASPART PER UNIT SC SCH ×2 (06:01→12:07)
[2022-11-23] MEDS: Albuterol HFA 8 GM Inhaler (Combivent Respimat P&T Subs) INH SCH ×3 (07:21→14:37)
[2022-11-23] MEDS: Ipratropium HFA Inhaler (Combivent Respimat P&T Subs) INH SCH ×3 (07:21→14:37)
[2022-11-23] MEDS: DORZOLAMIDE HCL 2% OPH SOLN 10 ML BTL OP SCH (08:52)
[2022-11-23] MEDS: METOPROLOL SUCC 25MG EXT REL TAB PO SCH (08:53)
[2022-11-23] MEDS: PANTOprazole 40 MG TAB PO SCH (08:53)
[2022-11-23] MEDS: ASPIRIN 81 MG ECTAB PO SCH (08:53)
[2022-11-23] MEDS: SERTRALINE HCL 50 MG TABLET PO SCH (08:53)
[2022-11-23] MEDS: methIMAzole 5 MG TABLET PO SCH (08:53)
[2022-11-23] MEDS: DICYCLOMINE HCL 20 MG TAB PO SCH (08:53)
[2022-11-23] MEDS: SUCRALFATE 1 GM TAB PO SCH ×2 (08:53→11:10)
[2022-11-23] MEDS: BENZONATATE 100 MG CAPSULE PO PRN ×2 (08:54→13:57)
[2022-11-23] MEDS: oxyCODONE HCL IR 5 MG TAB (IMMEDIATE RELEASE) PO PRN ×2 (08:54→15:57)
[2022-11-23] MEDS: POTASSIUM CHLORIDE CRTAB 20 MEQ TABCR PO SCH (08:54)
[2022-11-23] MEDS: guaiFENesin 600 MG TABCR PO SCH (08:54)
[2022-11-23] MEDS: FUROSEMIDE 40 MG TAB PO SCH (08:54)
[2022-11-23] MEDS: LIDOCAINE 5% 1 PATCH TD SCH (08:54)
[2022-11-23] MEDS: dexAMETHasone 6 MG in SYRINGE 0 ML IV SCH (08:57)
[2022-11-23] MEDS: FERROUS SULFATE 325 MG TAB PO SCH (08:58)
[2022-11-23] MEDS: DOCUSATE SODIUM 100 MG CAP PO SCH (08:58)
[2022-11-23] MEDS ORDERED: D5W AND NSS 1,000 ML IV SCH (09:00)
[2022-11-23] MEDS ORDERED: HYDROmorphone INJ 0.5 MG/0.5 ML SYR IV PRN (13:34)
[2022-11-23] MEDS ORDERED: FUROSEMIDE INJ 20 MG/2 ML VIAL IV ONE (14:29)
--- NOTE | 2022-11-23 15:41 | Surgery Progress Note ---
Date of Service November 23, 2022 Assessment & Plan (1) Dehiscence of fascia: Plan: 81-year-old female status post colovesicular fistula takedown at [place] approximately 2 weeks ago. She was admitted with COVID and complex UTI. During her stay her wound began to have some opening superficially. pt developed fascia partially dehisced yesterday, Dr. Bravo did packing the wound with laps, pt is doing fine, no fever, no significant abdominal pain, plan, per- nurse, pt will be transferred to [facility] at 5PM today, pt agreed with transfer. Admission and Anticipated Discharge Date Admission Date: November 16, 2022 Subjective 81-year-old female status post colovesicular fistula takedown at [place] approximately 2 weeks ago. She was admitted with COVID and complex UTI. During her stay her wound began to have some opening superficially. Last night she had increased drainage from her wound, and our surgical PA evaluated. On my rounds today it was evident that the fascia had partially dehisced and that there was bowel exposed. 11/23/2022 3:[address] Garcia pt developed fascia partially dehisced yesterday, Dr. Bravo did packing the wound with laps, pt is doing fine, no fever, no significant abdominal pain, Physical Exam Constitutional: WD/WN, vitals as above Eyes: PERRL, conjunctivae normal, anicteric sclerae Neck: trachea midline, no thyromegaly Respiratory: normal respiratory effort, lungs clear to auscultation Cardiovascular: RRR, no murmur, no edema Gastrointestinal (Abdomen): soft, packing intact, no drainage, the packing is dry, no distend, BS +, Neurologic: patellar DTR's 2+ bilat, sensation intact Psychiatric: A+Ox3, euthymic affect Results & Data ([facility]) Vital Signs (Past 12 Hours) Vital Signs Temp Pulse Pulse Resp BP Pulse Ox O2 Del Method 11/23/22 15:05 71 11/23/22 14:36 80 18 95 Nasal Cannula 11/23/22 11:06 78 16 96 Nasal Cannula 11/23/22 11:02 36.8 C 69 18 99/61 L 97 Nasal Cannula 11/23/22 09:00 70 11/23/22 09:00 Nasal Cannula 11/23/22 07:42 36.7 C 76 18 120/71 95 Nasal Cannula 11/23/22 07:22 77 16 97 Nasal Cannula 11/23/22 06:00 36.6 C 80 14 126/85 Nasal Cannula O2 Flow Rate 11/23/22 15:05 11/23/22 14:36 2 11/23/22 11:06 2 11/23/22 11:02 2.0 11/23/22 09:00 11/23/22 09:00 2 11/23/22 07:42 2.0 11/23/22 07:22 2 11/23/22 06:00 2 Laboratory Results Abnormal lab results 11/22/22 11/22/22 11/23/22 Range/Units 16:10 23:13 05:54 POC Glucose 210 H 139 H 101 H (70-99) mg/dl 11/23/22 Range/Units 12:03 POC Glucose 141 H (70-99) mg/dl
--- NOTE | 2022-11-23 18:51 | Hospitalist Progress Note ---
Date of Service November 23, 2022 Assessment & Plan (1) Hypoglycemia: Plan: per Dr. Santiago's notes with addendum: History of type 2 diabetes mellitus; most recent A1c as per outpatient lab 6.8. She is on glimepiride 2 mg daily; Patient had hypoglycemic episode which resulted in unresponsiveness. She was brought to the ED;. Her blood glucose level was 61. Was given D10 infusion overnight and every 2 blood glucose checks Her blood glucoses improved to 150s to 200. Plan; She is also on dexamethasone for COVID infection which will increase her blood glucose level.on NovoLog for now. Given patient's age and comorbidities; patient A1c goal would be 7.5 to 8%. A1c is 6.7% We will stop glimepiride at discharge. She will follow-up with her primary care doctor to discuss long-term management for her type 2 diabetes mellitus. 11/22 113--> 158 (2) Acute on chronic respiratory failure with hypoxia: (3) COPD (chronic obstructive pulmonary disease): (4) COVID-19: Plan: Patient hypoxic on usual 2 L at 86%. Currently requiring 4 L of oxygen via nasal cannula on admission. Tested positive for COVID-[facility] to admission. Started on Paxlovid. Patient had 4 doses of COVID-19 vaccine already In the ED, CTA chest negative for pulmonary embolism; scattered tree in bud nodules within right upper and lower lobe suggestive of infectious/inflammatory bronchiolitis. Plan; She is currently on dexamethasone 6 mg once daily and remdesivir. - feels short of breath intermittently -currently on 4L Provide supplemental oxygen as needed. 11/22 now on 2L NC clinically improving gradually completed Remdesivir x 5 days on Decadron 6mg IV day 6 continue Mucinex Lovenox SC daily ESBL E.coli UTI Urinalysis shows greater than 30 WBC and 4+ bacteria. Blood culture was sent, and pt on empiric ceftriaxone. Patient reports history of ureteral stent placed during her hospitalization in [facility]. Chart review shows she underwent cystoscopy with bilateral stent placement in November 01. Renal ultrasound does not show any hydronephrosis. Patient has outpatient urology referral Urine culture positive for ESBL E. coli. Stopped ceftriaxone, switched to ertapenem 11/22 continue Ertapenem Day # 4 (5) Atrial fibrillation with RVR: Plan: On presentation, heart rate in the 130s, received diltiazem 20 mg IV with improvement in heart rate History of paroxysmal atrial fibrillation s/p watchman device - continue Metoprolol (6) Pulmonary nodules/lesions, multiple: Plan: seen on CT chest: IMPRESSION: 1. Cardiomegaly without pulmonary emboli identified. 2. Suggestion of pulmonary arterial hypertension. 3. Scattered tree-in-bud nodules within the right upper and lower lobes are suggestive of an infectious or inflammatory bronchiolitis. Additional scattered pulmonary nodules measuring 3-4 mm also likely infectious or inflammatory. 4. No lymphadenopathy. Please refer to below summary of Fleischner criteria recommendations for follow- up of incidental CT nodules (Sammi Thompson, Guidelines for management of small pulmonary nodules detected on CT scans: A statement from the Fleischner Society, Radiology 237: [id number].) SOLID NODULES Multiple nodules size: <6 mm * Low risk patients: no routine follow-up * high risk patients: optional CT at 12 months Note: newly detected indeterminate nodule in persons 35 years of age or older. * Low risk patients: minimal or absent history of smoking and/or other known risk factors * high risk patients: history of smoking or of other known risk factors (e.g. first degree relative with lung cancer, or exposure to asbestos, radon, uranium) * if a nodule up to 8 mm is partly solid or is ground glass further follow-up is required after 24 months to exclude possible slow growing adenocarcinoma (ANAIS) ACT 112: Negative or not required by law. (7) Hyponatremia: Plan: Sodium 129 on admission; down trended to 127 -> now 133 Urine electrolytes, osmolarity and creatinine sent. Suspect hypovolemic hyponatremia given decreased oral intake. Na 133 (8) Chronic HFrEF (heart failure with reduced ejection fraction): (9) NICM (nonischemic cardiomyopathy): Plan: EF 40-45% on echo 06/2021 High-sensitivity troponin slightly elevated on admission; no delta difference. Likely demand ischemia. resume Lasix (10) S/P colon resection: Plan: Recently admitted to [facility] for elective colon resection due to recurrent diverticulitis and colovesical fistula no signs of infection continue daily wound care consulted Gen Surg 11/22 progression of wound dehiscence noted by Gen Surg - intestines visualized recommend transfer to [facility] discussed with Dr. Alcocer, who kindly accepted the patient (11) Subclinical hyperthyroidism: Plan: TSH WNL Continue methimazole Plan Full code DVT prophylaxis Lovenox Disposition transfer to [facility] Admission and Anticipated Discharge Date Admission Date: November 16, 2022 Results & Data Results & Data ([facility]) Vital Signs (Past 12 Hours) Vital Signs Temp Pulse Pulse Resp BP BP Pulse Ox 11/23/22 16:00 36.8 C 65 18 116/69 104/62 97 11/23/22 17:37 36.8 C 65 18 116/69 104/62 97 11/23/22 15:40 36.8 C 65 18 104/62 97 11/23/22 15:05 71 11/23/22 14:36 80 18 95 11/23/22 11:06 78 16 96 11/23/22 11:02 36.8 C 69 18 99/61 L 97 11/23/22 09:00 70 11/23/22 09:00 11/23/22 07:42 36.7 C 76 18 120/71 95 11/23/22 07:22 77 16 97 O2 Del Method O2 Flow Rate 11/23/22 16:00 11/23/22 17:37 11/23/22 15:40 Nasal Cannula 2.0 11/23/22 15:05 11/23/22 14:36 Nasal Cannula 2 11/23/22 11:06 Nasal Cannula 2 11/23/22 11:02 Nasal Cannula 2.0 11/23/22 09:00 11/23/22 09:00 Nasal Cannula 2 11/23/22 07:42 Nasal Cannula 2.0 11/23/22 07:22 Nasal Cannula 2 (1) COPD (chronic obstructive pulmonary disease) COPD type: COPD with acute exacerbation Qualified Code(s): J44.1 - Chronic obstructive pulmonary disease with (acute) exacerbation
== END 2022-11-23 17:40 | disposition short-term general hospital (02) | DRG 177 ==
LOC: ED 14:29 → 2S 17:55 → SUATTDRO 17:55 → 2S 19:35

== ENCOUNTER 2023-06-11 18:27 | Inpatient (IN) ==
--- NOTE | 2023-06-11 18:38 | ED Triage Note ---
Date of Service June 11, 2023 History of Present Illness This patient was briefly evaluated while in triage. An abbreviated physical exam was performed. This patient is a 82-year-old Female who presents to the ED for evaluation of shortness of breath and ankle swelling. Patient does report a prior history of asthma, COPD, atrial fibrillation and CHF. Patient is on chronic O2 via nasal cannula 2 L/min during the daytime, and 4 L/min at night. Patient reports that her shortness of breath has been ongoing for the past few days, and is progressively worsening. Patient reports a nonproductive cough. Physical Exam CONSTITUTIONAL: Healthy and well nourished. Patient does not appear in any acute distress. HEENT: No scleral icterus or conjunctival injection/pallor. RESPIRATORY: Clear to auscultation bilaterally with no wheezing, crackles, rhon chi or stridor. CARDIOVASCULAR: Regular rate and rhythm with no murmurs, rubs or gallops. MUSCULOSKELETAL: Full range of motion of all joints without discomfort. Examination shows mild edema of the lower extremities. INTEGUMENTARY: No rash or other significant dermatologic conditions noted. HEMATOLOGIC: No ecchymosis or petechiae. PSYCHIATRIC: Positive affect. NEUROLOGIC: No focal neurologic deficits noted. Initial orders for labs and / or imaging were placed and patient was placed in the waiting area until a bed is available. Please see further documentation for the full ED course.
[2023-06-11 19:26] LABS: Basophils # (auto) 0.04 K/uL (0.00-0.20); Basophils % (auto) 0.4 %; Eosinophils # (auto) 0.35 K/uL (0.00-0.50); Eosinophils % (auto) 3.5 %; Hematocrit (blood only) 35.4 % (37.0-47.0); Hemoglobin 11.1 g/dl (12.0-16.0); Immature Granulocytes # (auto) 0.04 K/uL (0.01-0.20); Immature Granulocytes % (auto) 0.4 %; Lymphocytes # (auto) 1.46 K/uL (1.20-3.40); Lymphocytes % (auto) 14.6 %; Mean Corpuscular Hemoglobin 29.1 pg (25.0-34.0); Mean Corpuscular Hgb Conc 31.4 g/dL (32.0-36.0); Mean Corpuscular Volume 92.7 fL (80.0-100.0); Monocytes # (auto) 0.94 K/uL (0.11-0.59); Monocytes % (auto) 9.4 %; Neutrophils # (auto) 7.14 K/uL (1.40-6.50); Neutrophils % (auto) 71.7 %; Platelet Count 225 K/uL (130-400); RDW Coefficient of Variation 14.3 % (11.5-14.5); RDW Standard Deviation 48.4 fL (36.4-46.3); Red Blood Count 3.82 M/uL (4.20-5.40); White Blood Count 9.97 K/ul (4.8-10.8)
[2023-06-11 19:46] LABS: Alanine Aminotransferase 24 U/L (7-52); Albumin Globulin Ratio 1.6 (0.9-2); Albumin Level 4.1 gm/dl (3.4-5.0); Alkaline Phosphatase 117 U/L (34-104); Anion Gap 5 (3-11); Aspartate Aminotransferase 23 U/L (13-39); BUN Creatinine Ratio 21.8 (10-20); Bilirubin,Total 0.6 mg/dl (0.2-1.0); Blood Urea Nitrogen 27 mg/dl (6-23); Calcium 10.1 mg/dl (8.6-10.3); Carbon Dioxide 37 mmol/L (21-32); Chloride 97 mmol/L (98-107); Est GFR (African American) 46.2 ml/min; Est GFR (Non-African American) 39.9 ml/min; Globulin 2.6 gm/dl (2.5-4.0); Glucose 167 mg/dl (70-99(Fasting)); Magnesium 1.7 mg/dl (1.7-2.4); Potassium 4.6 mmol/L (3.5-5.1); Sodium 139 mmol/L (136-145); Total Protein 6.7 gm/dl (6.0-8.3)
[2023-06-11 19:52] LABS: Troponin I High Sensitivity 27.7 pg/ml (0-14)
--- NOTE | 2023-06-11 21:02 | XRay Report ---
SINGLE VIEW CHEST CLINICAL HISTORY: Dyspnea FINDINGS: An AP upright chest radiograph is compared to chest x-ray and chest CT dated 11/16/2022. The examination is degraded by apical lordotic positioning. The heart is enlarged. There is pulmonary vas cular congestion. Enlargement of the central pulmonary vessels suggests pulmonary artery hypertension . There is bibasilar scarring/atelectasis. Trace pleural effusions are suspected. No pneumothorax is seen. The skeletal structures are osteopenic. The bony thorax is grossly intact. IMPRESSION: 1. Cardiomegaly with pulmonary vascular congestion. 2. Suspect trace pleural effusions.. ACT 112: Negative or not required by law. Electronically signed by: Pepito Guillen M.D. 06/11/2023 9:01 PM
[2023-06-11 21:53] LABS: Appearance Urine Clear (Clear); Bilirubin Urine Negative (Negative); Blood Urine Negative (Negative); Color Urine Yellow; Glucose Urine UA Negative (Negative); Ketones Urine Negative (Negative); Leukocyte Esterase Urine Negative (Negative); Nitrite Urine Negative (Negative); Protein Urine Negative (Negative); Specific Gravity Urine 1.014 (1.000-1.030); Urobilinogen Urine Negative (Negative)
[2023-06-11 22:45] LABS: Partial Thromboplastin Ratio 0.9; Partial Thromboplastin Time 25.6 Seconds (21.0-31.0); Prothrombin Time 11.4 Seconds (9.0-12.0)
[2023-06-12] MEDS ORDERED: FUROSEMIDE 40 MG/4 ML VIAL IV ONE (00:16)
[2023-06-12] MEDS ORDERED: fentaNYL citrate PF 100 MCG/2 ML VIAL IV STA (00:16)
[2023-06-12] MEDS ORDERED: HYDROmorphone INJ 0.5 MG/0.5 ML SYR IV STA ×3 (02:31→20:56)
--- NOTE | 2023-06-12 03:06 | History & Physical Report ---
Date of Service June 12, 2023 Assessment & Plan (1) Acute on chronic systolic (congestive) heart failure: Plan: 82-year-old female with past medical history significant for type 2 diabetes chronic hypoxemic respiratory failure on home oxygen, hyperlipidemia, subc linical hyperthyroidism, asthma, COPD, allergic rhinitis, sleep apnea, chronic systolic CHF, pulmonary hypertension, hypertension, paroxysmal atrial fibrillation s/p Watchman device placement, irritable bowel syndrome with constipation, morbid obesity, GERD, gastroparesis, history of ischemic colitis, chronic kidney stage III, UTI with ESBL, generalized osteoarthritis, history of elevated plasma metanephrines, general generalized anxiety disorder, depression presents with shortness of breath and found to have acute on chronic systolic CHF. Acute on chronic systolic CHF EF 40 to 45% on echo done in November 2022. And also severe mitral regurgitation. Has lower extremity edema Received IV Lasix 40 mg in the ER We will hold home Lasix 40 mg p.o. twice daily We will place on IV Lasix 40 mg twice daily and continue home spironolactone Daily weights and I's and O's We will follow repeat echo Monitor in telemetry Consult cardiology in a.m. for further recommendations Chronic hypoxic respiratory failure on home oxygen History of asthma and COPD and sleep apnea Continue home inhalers and oxygen We will monitor . Type 2 diabetes Hold home p.o. medications Insulin sliding scale We will monitor the blood sugars and HbA1c levels History of proximal atrial fibrillation s/p Watchman device placement Continue home metoprolol History of subclinical hyperthyroidism Continue home methimazole. f/u tsh. GERD on Protonix Chronic kidney stage III Presented with creatinine 1.24 We will follow the labs while patient is on IV Lasix Mild elevation troponin Mostly demand ischemia We will follow serial enzymes DVT prophylaxis Lovenox. Disposition telemetry. Full code History of Present Illness Chief Complaint: Shortness of breath. Acute CHF Primary Care Provider: NO PCP 82-year-old female with past medical history significant for type 2 diabetes chronic hypoxemic respiratory failure on home oxygen, hyperlipidemia, subclinical hyperthyroidism, asthma, COPD, allergic rhinitis, sleep apnea, chronic systolic CHF, pulmonary hypertension, hypertension, paroxysmal atrial fibrillation s/p Watchman device placement, irritable bowel syndrome with constipation, morbid obesity, GERD, gastroparesis, history of ischemic colitis, chronic kidney stage III, UTI with ESBL, generalized osteoarthritis, history of elevated plasma metanephrines, general generalized anxiety disorder, depression, patient had elective colon resection at [place] Nov 01 for recurrent diverticulitis and colovesical fistula and was discharged to [facility] and was admitted on November 16, 2022 for confusion and COVID at [facility]. Treated with remdesivir and steroid for COVID. During that hospitalization patient developed wound dehiscence from recent colon resection surgery and was transferred to [place] where patient was taken to the OR and had fascial closure and did fine and got discharged to follow-up with colorectal colorectal surgery clinic. Patient lives alone and ambulates without any support. Daughter lives close by. Patient says since last 1 week she is getting progressively getting short of breath. Also she developed lower extremity edema since last 2 days. Denies any chest pain. Has some dry cough. No fevers. Has some headache. No blurred visions. No earache runny nose or sore throat. Appetite is okay. Denies any chest pain. No nausea. Normal bowel and bladder movements. Past medical history as mentioned above Past surgical history Appendectomy with removal of gallbladder in 1959, colonoscopy with biopsy, cystoscopy with stent insertion bilateral, EGD, EGD with endoscopic ultrasound, exploratory laparotomy, incisional hernia repair, laparoscopic partial colectomy with coloproctostomy, ligation of oviducts, tonsillectomy, sigmoidoscopy, small bowel endoscopy with removal of foreign body, Social history . No smoking. No alcohol. No drug use. Family history mother had breast cancer father had heart disease sinus sleep apnea, brother has COPD daughter has asthma Allergies Allergy/AdvReac Type Severity Reaction Status Date / Time salmon oil Allergy Severe HIVES-REDDENED Verified 06/11/23 23:41 ALL OVER Iodinated Contrast Media Allergy Intermediate HIVES-GI Verified 06/11/23 23:41 SYMPTOMS valsartan Allergy Intermediate FAST HEART Verified 06/11/23 23:41 BEAT bupropion AdvReac Intermediate GI SYMPTOMS Verified 06/11/23 23:41 enalapril AdvReac Intermediate GI SYMPTOMS Verified 06/11/23 23:41 escitalopram AdvReac Intermediate GI SYMPTOMS Verified 06/11/23 23:41 metoprolol AdvReac Intermediate LOWERS Verified 06/11/23 23:41 PULSE RATE verapamil AdvReac Intermediate GI UPSET, Verified 06/11/23 23:41 fast heart rate Home Medications Medication Instructions Recorded Confirmed Type atorvastatin 40 mg tablet 40 mg PO QAM 06/23/19 06/11/23 History cholecalciferol (vitamin D3) 25 2,000 unit PO QAM 06/23/19 06/11/23 History mcg (1,000 unit) capsule (Vitamin D3) albuterol sulfate 2.5 mg/3 mL 2.5 mg inhalation BID PRN 09/25/19 06/11/23 History (0.083 %) solution for nebulization .WORSENING ASTHMA bimatoprost 0.01 % eye drops 1 drp OPB HS 09/25/19 06/11/23 History (Lumigan) ferrous sulfate 325 mg (65 mg 325 mg PO HS 02/23/20 06/11/23 History iron) tablet (iron) aspirin 81 mg tablet,delayed 81 mg PO DAILY 02/05/21 06/11/23 History release (Kenzie Low Dose Aspirin) ipratropium 20 mcg-albuterol 100 1 puff inhalation QID 04/09/21 06/11/23 History mcg/actuation mist for inhalation (Combivent Respimat) potassium chloride 20 mEq 20 meq PO HS 04/09/21 06/11/23 History tablet,extended release(part/cryst) (Klor-Con M) dicyclomine 20 mg tablet 20 mg PO DAILY 01/14/22 06/11/23 History spironolactone 25 mg tablet 12.5 mg PO 3XWK 01/14/22 06/11/23 History sertraline 25 mg tablet 25 mg PO DAILY 03/13/22 06/11/23 History furosemide 40 mg tablet 40 mg PO BID 05/31/22 06/11/23 History methimazole 5 mg tablet 5 mg PO DAILY 07/17/22 06/11/23 History metoprolol succinate 25 mg 12.5 mg PO DAILY 07/17/22 06/11/23 History tablet,extended release 24 hr dorzolamide 2 % eye drops 1 drp ophthalmic (eye) BID 11/16/22 06/11/23 History glimepiride 2 mg tablet 2 mg PO DAILY PRN NEEDED PER PT 11/16/22 06/11/23 History oxycodone 5 mg tablet 5 mg PO Q4H PRN Pain 11/16/22 06/11/23 History pantoprazole 40 mg tablet,delayed 40 mg PO DAILY 11/16/22 06/11/23 History release sucralfate 1 gram tablet 1 g PO ACHS PRN Gi Upset 11/16/22 06/11/23 History tiotropium bromide 2.5 2 puff inhalation DAILY #1 inhaler 02/10/23 06/11/23 Rx mcg/actuation mist for inhalation (Spiriva Respimat) albuterol sulfate 90 mcg/actuation 2 puff inhalation QID PRN 06/11/23 06/11/23 History aerosol inhaler Shortness Of Breath Past Med/Surg History Medical History Aortic valve stenosis, mild Asthma Chris-tachy syndrome Chronic atrial fibrillation Chronic diastolic CHF (congestive heart failure) Chronic HFrEF (heart failure with reduced ejection fraction) Chronic respiratory failure with hypoxia and hypercapnia Colovesical fistula COPD (chronic obstructive pulmonary disease) Dehiscence of fascia Diabetes mellitus, type 2 Diverticulitis large intestine Esophageal reflux Glaucoma of both eyes Hyperlipidemia Hypertension Lower GI bleed NICM (nonischemic cardiomyopathy) On home oxygen therapy 2L N/C at all times and 4 L N/C at night JORDAN (obstructive sleep apnea) Sleep apnea Subclinical hyperthyroidism Subepithelial mass of stomach Surgical History H/O colonoscopy "04/2014 - diverticular disease throughout colon, internal hemorrhoids, polyp removed" History of appendectomy History of cardiac cath "YEARS AGO"NO BLOCKAGES/NO STENTS-F/U DR THOMSON History of cholecystectomy History of dilatation and curettage History of esophagogastroduodenoscopy (EGD) "04/2014 - normal" History of incisional hernia repair History of tooth extraction all teeth Hx of small bowel obstruction "11/2017 - Seen [facility] - surgical intervention" Nausea and vomiting after administration of anesthetic agent Presence of Watchman left atrial appendage closure device 11/2019 @ [facility] Dr. Velez S/P colon resection Status post tonsillectomy and adenoidectomy Status post tubal ligation Family History Mother Breast cancer Father Heart disease Brother COPD (chronic obstructive pulmonary disease) Aunt Diabetes Son JORDAN (obstructive sleep apnea) Daughter Asthma Other No family history of adverse response to anesthesia No pertinent family history in first degree relatives 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 Smoking Status: Never smoker Second Hand Exposure: No; Do You Dip or Chew Tobacco: No; Tobacco Cessation Education Requested by Patient: No Hx Alcohol Use: No Hx Substance Use: No Preferred Language: Swedish Communication Ability: Effective 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 Beliefs That Will Affect Care: None marital status: / Current Living Situation: Alone Other Information That Helps Us Care for You: No Feels Safe at Home: Yes Safety Concerns: Feels Safe At This Time Assistive Devices: Denture - Upper, Glasses and Oxygen - Continuous Review of Systems Review of Systems: All systems reviewed & are unremarkable except as noted in HPI & below Physical Exam Physical Exam: General- Not in distress Head- atraumatic Eyes- PERRL, ENT- oropharynx clear Neck- supple, no JVD, no adenopathy, carotids +2/2, no bruits appreciated Lungs- clear to auscultation mild bibasilar occasional wheezing Heart- regular rate and rhythm; no murmur, no gallop, Abdomen- normal bowel sounds, soft, nontender, no distension. Extremities- b/l lower extremity +2 edema present. No erythema seen. Neuro- alert, oriented x 3; PERRL, no facial palsy; no dysarthria;moves extremities. Skin- warm & dry Results & Data Results & Data Vital Signs (Past 12 Hours) Vital Signs Temp Pulse Resp BP Pulse Ox O2 Del Method O2 Flow Rate 06/12/23 00:00 94 H 23 96 06/11/23 23:32 101 H 25 H 153/93 H 99 Nasal Cannula 4 06/11/23 23:30 97 H 21 96 Nasal Cannula 4 06/11/23 23:26 103 H 06/11/23 23:16 96 Nasal Cannula 2 06/11/23 18:38 Nasal Cannula 3 06/11/23 18:35 36.6 C 94 H 18 135/87 95 Nasal Cannula 3 Diagnostic Findings Laboratory Results WBC 9.97 K/ul (4.8-10.8) 06/11/23 19:15 RBC 3.82 M/uL (4.20-5.40) L 06/11/23 19:15 Hgb 11.1 g/dl (12.0-16.0) L 06/11/23 19:15 Hct 35.4 % (37.0-47.0) L 06/11/23 19:15 MCV 92.7 fL (80.0-100.0) 06/11/23 19:15 MCH 29.1 pg (25.0-34.0) 06/11/23 19:15 MCHC 31.4 g/dL (32.0-36.0) L 06/11/23 19:15 RDW Std Deviation 48.4 fL (36.4-46.3) H 06/11/23 19:15 RDW Coeff of Jesika 14.3 % (11.5-14.5) 06/11/23 19:15 Plt Count 225 K/uL (130-400) 06/11/23 19:15 MPV 10.0 fL (9.4-12.4) 06/11/23 19:15 Immature Gran % (Auto) 0.4 % 06/11/23 19:15 Neut % (Auto) 71.7 % 06/11/23 19:15 Lymph % (Auto) 14.6 % 06/11/23 19:15 Butler % (Auto) 9.4 % 06/11/23 19:15 Eos % (Auto) 3.5 % 06/11/23 19:15 Baso % (Auto) 0.4 % 06/11/23 19:15 Neut # (Auto) 7.14 K/uL (1.40-6.50) H 06/11/23 19:15 Lymph # (Auto) 1.46 K/uL (1.20-3.40) 06/11/23 19:15 Butler # (Auto) 0.94 K/uL (0.11-0.59) H 06/11/23 19:15 Eos # (Auto) 0.35 K/uL (0.00-0.50) 06/11/23 19:15 Baso # (Auto) 0.04 K/uL (0.00-0.20) 06/11/23 19:15 Immature Gran # (Auto) 0.04 K/uL (0.01-0.20) 06/11/23 19:15 PT 11.4 Seconds (9.0-12.0) 06/11/23 21:44 INR 1.0 (0.9-1.1) 06/11/23 21:44 APTT 25.6 Seconds (21.0-31.0) 06/11/23 21:44 PTT Ratio 0.9 06/11/23 21:44 Sodium 139 mmol/L (136-145) 06/11/23 19:15 Potassium 4.6 mmol/L (3.5-5.1) 06/11/23 19:15 Chloride 97 mmol/L (98-107) L 06/11/23 19:15 Carbon Dioxide 37 mmol/L (21-32) H 06/11/23 19:15 Anion Gap 5 (3-11) 06/11/23 19:15 BUN 27 mg/dl (6-23) H 06/11/23 19:15 Creatinine 1.24 mg/dl (0.6-1.2) H 06/11/23 19:15 Est Cr Clr Drug Dosing Not Reportable 06/11/23 19:15 Est GFR ( Amer) 46.2 ml/min 06/11/23 19:15 Est GFR (Non-Af Amer) 39.9 ml/min 06/11/23 19:15 BUN/Creatinine Ratio 21.8 (10-20) H 06/11/23 19:15 Glucose 167 mg/dl (70-99(Fasting)) H 06/11/23 19:15 Calcium 10.1 mg/dl (8.6-10.3) 06/11/23 19:15 Magnesium 1.7 mg/dl (1.7-2.4) 06/11/23 19:15 Total Bilirubin 0.6 mg/dl (0.2-1.0) 06/11/23 19:15 AST 23 U/L (13-39) 06/11/23 19:15 ALT 24 U/L (7-52) 06/11/23 19:15 Alkaline Phosphatase 117 U/L (34-104) H 06/11/23 19:15 Troponin I High Sens 27.7 pg/ml (0-14) H 06/11/23 19:15 B-Natriuretic Peptide 380 pg/ml (0-100) H 06/11/23 19:15 Total Protein 6.7 gm/dl (6.0-8.3) 06/11/23 19:15 Albumin 4.1 gm/dl (3.4-5.0) 06/11/23 19:15 Globulin 2.6 gm/dl (2.5-4.0) 06/11/23 19:15 Albumin/Globulin Ratio 1.6 (0.9-2) 06/11/23 19:15 Urine Color Yellow 06/11/23 Unknown Urine Appearance Clear (Clear) 06/11/23 Unknown Urine pH 8.0 (4.5-7.5) H 06/11/23 Unknown Ur Specific [place] 1.014 (1.000-1.030) 06/11/23 Unknown Urine Protein Negative (Negative) 06/11/23 Unknown Urine Glucose (UA) Negative (Negative) 06/11/23 Unknown Urine Ketones Negative (Negative) 06/11/23 Unknown Urine Blood Negative (Negative) 06/11/23 Unknown Urine Nitrite Negative (Negative) 06/11/23 Unknown Urine Bilirubin Negative (Negative) 06/11/23 Unknown Urine Urobilinogen Negative (Negative) 06/11/23 Unknown Ur Leukocyte Esterase Negative (Negative) 06/11/23 Unknown Impressions Chest X-Ray 06/11/23 18:38 SINGLE VIEW CHEST CLINICAL HISTORY: Dyspnea FINDINGS: An AP upright chest radiograph is compared to chest x-ray and chest CT dated 11/16/2022. The examination is degraded by apical lordotic positioning. The heart is enlarged. There is pulmonary vascular congestion. Enlargement of the central pulmonary vessels suggests pulmonary artery hypertension. There is bibasilar scarring/atelectasis. Trace pleural effusions are suspected. No pneumothorax is seen. The skeletal structures are osteopenic. The bony thorax is grossly intact. IMPRESSION: 1. Cardiomegaly with pulmonary vascular congestion. 2. Suspect trace pleural effusions.. ACT 112: Negative or not required by law. Electronically signed by: Pepito Guillen M.D. 06/11/2023 9:01 PM ECG Additional Comments: ECG A-fib at a rate of 97. Left axis deviation. Nonspecific intraventricular conduction block. Code Status & VTE Plan VTE Prophylaxis Plan VTE Prophylaxis will be ordered: Yes
--- NOTE | 2023-06-12 04:52 | Emergency Department Note ---
Impression & Plan CHF (congestive heart failure), Elevated troponin Admit to the [facility] ED Provider Note NAME: SAVITA YANG AGE: 82 SEX: F ARRIVES VIA: Walk-In INFORMANT: Patient and her daughter ED PROVIDER(S): Jessica Maldonado DO CHIEF COMPLAINT: Shortness of breath PLAN: Disposition: Admit to the [facility] Condition: Fair MEDICAL DECISION MAKING: This is an 82-year-old female patient who presents to the emergency department with increasing shortness of breath and lower extremity swelling. Patient also describes exertional shortness of breath. Symptoms been ongoing for a week but worsened dramatically over the past 24 hours. Laboratory studies reveal an elevated BNP to 380. An elevated troponin at 27.7. Creatinine has increased to 1.24 from 0.68. BUN is mildly elevated at 27. There is no significant leukocytosis or significant anemia. Chest x-ray shows obvious fluid overload. Patient was medicated with IV Lasix as a diuretic and she was given a small dose of IV fentanyl for exacerbation of chronic back pain. On physical exam, the patient does have pitting edema in her lower extremities and rales throughout on lung exam. I [facility] the case [facility] the [facility] and they will evaluate for further management. Triage Nursing notes reviewed and agree with them. Additional history obtained from the daughters at the bedside External medical records were reviewed including previous admission to the hospital. Vital Signs: reviewed and unremarkable Differential diagnosis: Asthma exacerbation, CHF, pneumonia, hypoxia ER treatment provided: Cardiac monitoring Twelve-lead EKG Supplemental oxygen IV Lasix IV fentanyl Diagnostics interpreted by me: ECG: Atrial fibrillation at a rate of [address] segment elevation or signs of ischemia. There is no specific ectopy. Cardiac Monitoring: A-fib at 99 Laboratory studies: See below Imaging studies: As per my independent interpretation Portable chest x-ray: Cardiomegaly with moderate pulmonary vascular congestion HPI: 82/F arrives for evaluation of shortness of breath. Patient describes increasing shortness of breath over the past week that became much more significant today. She has noticed increasing exertional shortness of breath especially with walking. She also describes lower extremity edema that has increased over the past 24 hours. Patient does mention that she used to be on an increased dose of Lasix but only takes 1 pill a day at this time. PAST MEDICAL HISTORY:See Below PAST SURGICAL HISTORY:See Below FAMILY HISTORY:See Below SOCIAL HISTORY:See Below HOME MEDICATIONS: See list ALLERGIES: See list VITALS:See Below PHYSICAL EXAMINATION: HEENT: Head - normocephalic and atraumatic. I discussed the case with the [facility] pupils are equal, round, and reactive to light. Extraocular eye muscles are intact, and sclera are anicteric. Nose - moist nasal mucosa without discharge. Mouth - moist buccal mucosa. Oropharynx is nonerythematous and there is no tonsillar exudate or edema noted. Neck: Supple; no JVD, nuchal rigidity, cervical lymphadenopathy, or auscultated bruits. Heart: Irregularly irregular rhythm with a controlled rate there is a normal S1 and S2 with no murmurs, clicks, or gallops appreciated. Lungs: Diminished breath sounds at both lung bases with Rales in all duffy Abdomen: Soft, completely nontender, nondistended, with good bowel sounds. There are no palpable pulsatile masses or hepatosplenomegaly. There is no guarding, rigidity, or rebound noted. Extremities: Bilateral lower extremity pitting edema. There are easily palpable peripheral pulses. Skin: warm and dry with good turgor and no rashes. ED COURSE: Times/Reassessments: 0005: Patient was evaluated in room A-2. Laboratory studies were done by protocol. A chest x-ray was performed which showed evidence of pulmonary vascular congestion. An order was placed for continuous cardiac monitoring. The patient was in atrial fibrillation at a rate of 99. A twelve-lead EKG was obtained as described above. A complete history and physical was performed. Patient was given a dose of IV Lasix for fluid overload. She complained of chronic low back pain and was given a dose of IV fentanyl. I discussed the case with the [facility] and they will evaluate for further inpatient care. Jessica Maldonado DO Past Med/Surg History Medical History Aortic valve stenosis, mild Asthma Chris-tachy syndrome Chronic atrial fibrillation Chronic diastolic CHF (congestive heart failure) Chronic HFrEF (heart failure with reduced ejection fraction) Chronic respiratory failure with hypoxia and hypercapnia Colovesical fistula COPD (chronic obstructive pulmonary disease) Dehiscence of fascia Diabetes mellitus, type 2 Diverticulitis large intestine Esophageal reflux Glaucoma of both eyes Hyperlipidemia Hypertension Lower GI bleed NICM (nonischemic cardiomyopathy) On home oxygen therapy 2L N/C at all times and 4 L N/C at night JORDAN (obstructive sleep apnea) Sleep apnea Subclinical hyperthyroidism Subepithelial mass of stomach Surgical History H/O colonoscopy "04/2014 - diverticular disease throughout colon, internal hemorrhoids, polyp removed" History of appendectomy History of cardiac cath "YEARS AGO"NO BLOCKAGES/NO STENTS-F/U DR THOMSON History of cholecystectomy History of dilatation and curettage History of esophagogastroduodenoscopy (EGD) "04/2014 - normal" History of incisional hernia repair History of tooth extraction all teeth Hx of small bowel obstruction "11/2017 - Seen [facility] - surgical intervention" Nausea and vomiting after administration of anesthetic agent Presence of Watchman left atrial appendage closure device 11/2019 @ [facility] Dr. Velez S/P colon resection Status post tonsillectomy and adenoidectomy Status post tubal ligation Family History Mother Breast cancer Father Heart disease Brother COPD (chronic obstructive pulmonary disease) Aunt Diabetes Son JORDAN (obstructive sleep apnea) Daughter Asthma Other No family history of adverse response to anesthesia No pertinent family history in first degree relatives 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 Smoking Status: Never smoker Second Hand Exposure: No; Do You Dip or Chew Tobacco: No; Tobacco Cessation Education Requested by Patient: No Hx Alcohol Use: No Hx Substance Use: No Preferred Language: South African Communication Ability: Effective Salvationist Required: No Beliefs That Will Affect Care: None marital status: / Current Living Situation: Alone Other Information That Helps Us Care for You: No Feels Safe at Home: Yes Safety Concerns: Feels Safe At This Time Assistive Devices: Denture - Upper, Glasses and Oxygen - Continuous Allergies Allergies Allergy/AdvReac Type Severity Reaction Status Date / Time salmon oil Allergy Severe HIVES-REDDENED Verified 06/11/23 23:41 ALL OVER Iodinated Contrast Media Allergy Intermediate HIVES-GI Verified 06/11/23 23:41 SYMPTOMS valsartan Allergy Intermediate FAST HEART Verified 06/11/23 23:41 BEAT bupropion AdvReac Intermediate GI SYMPTOMS Verified 06/11/23 23:41 enalapril AdvReac Intermediate GI SYMPTOMS Verified 06/11/23 23:41 escitalopram AdvReac Intermediate GI SYMPTOMS Verified 06/11/23 23:41 metoprolol AdvReac Intermediate LOWERS Verified 06/11/23 23:41 PULSE RATE verapamil AdvReac Intermediate GI UPSET, Verified 06/11/23 23:41 fast heart rate Home Meds Home Medications Medication Instructions Recorded Confirmed atorvastatin 40 mg tablet 40 mg PO QAM 06/23/19 06/11/23 cholecalciferol (vitamin D3) 25 2,000 unit PO QAM 06/23/19 06/11/23 mcg (1,000 unit) capsule (Vitamin D3) albuterol sulfate 2.5 mg/3 mL 2.5 mg inhalation BID PRN 09/25/19 06/11/23 (0.083 %) solution for nebulization .WORSENING ASTHMA bimatoprost 0.01 % eye drops 1 drp OPB HS 09/25/19 06/11/23 (Lumigan) ferrous sulfate 325 mg (65 mg 325 mg PO HS 02/23/20 06/11/23 iron) tablet (iron) aspirin 81 mg tablet,delayed 81 mg PO DAILY 02/05/21 06/11/23 release (Kenzie Low Dose Aspirin) ipratropium 20 mcg-albuterol 100 1 puff inhalation QID 04/09/21 06/11/23 mcg/actuation mist for inhalation (Combivent Respimat) potassium chloride 20 mEq 20 meq PO HS 04/09/21 06/11/23 tablet,extended release(part/cryst) (Klor-Con M) dicyclomine 20 mg tablet 20 mg PO DAILY 01/14/22 06/11/23 spironolactone 25 mg tablet 12.5 mg PO 3XWK 01/14/22 06/11/23 sertraline 25 mg tablet 25 mg PO DAILY 03/13/22 06/11/23 furosemide 40 mg tablet 40 mg PO BID 05/31/22 06/11/23 methimazole 5 mg tablet 5 mg PO DAILY 07/17/22 06/11/23 metoprolol succinate 25 mg 12.5 mg PO DAILY 07/17/22 06/11/23 tablet,extended release 24 hr dorzolamide 2 % eye drops 1 drp ophthalmic (eye) BID 11/16/22 06/11/23 glimepiride 2 mg tablet 2 mg PO DAILY PRN NEEDED PER PT 11/16/22 06/11/23 oxycodone 5 mg tablet 5 mg PO Q4H PRN Pain 11/16/22 06/11/23 pantoprazole 40 mg tablet,delayed 40 mg PO DAILY 11/16/22 06/11/23 release sucralfate 1 gram tablet 1 g PO ACHS PRN Gi Upset 11/16/22 06/11/23 albuterol sulfate 90 mcg/actuation 2 puff inhalation QID PRN 06/11/23 06/11/23 aerosol inhaler Shortness Of Breath Previous Rx's Medication Instructions Recorded tiotropium bromide 2.5 2 puff inhalation DAILY #1 inhaler 02/10/23 mcg/actuation mist for inhalation (Spiriva Respimat) Results & Data (ED) Vital Signs Vital Signs - 24 hr 06/11/23 23:16 06/11/23 23:26 06/11/23 23:30 Pulse Rate 103 H 97 H Pulse Rate from SpO2 Sensor 103 H Respiratory Rate 21 Blood Pressure Blood Pressure Mean Pulse Oximetry 96 96 Oxygen Delivery Method Nasal Cannula Nasal Cannula Oxygen Flow Rate 2 4 06/11/23 23:32 06/12/23 00:00 06/12/23 00:33 Pulse Rate 101 H 94 H 115 H Pulse Rate from SpO2 Sensor 100 H 175 H 155 H Respiratory Rate 25 H 23 19 Blood Pressure 153/93 H 96/57 L Blood Pressure Mean 113 70 Pulse Oximetry 99 96 95 Oxygen Delivery Method Nasal Cannula Oxygen Flow Rate 4 06/12/23 01:02 Pulse Rate 94 H Pulse Rate from SpO2 Sensor 95 H Respiratory Rate 18 Blood Pressure 197/164 H Blood Pressure Mean 175 Pulse Oximetry 95 Oxygen Delivery Method Nasal Cannula Oxygen Flow Rate 2 Laboratory Data 06/11/23 19:15 06/11/23 19:15 Lab Results 06/11/23 06/11/23 06/11/23 Range/Units 19:15 19:15 19:15 WBC 9.97 (4.8-10.8) K/ul RBC 3.82 L (4.20-5.40) M/uL Hgb 11.1 L (12.0-16.0) g/dl Hct 35.4 L (37.0-47.0) % MCV 92.7 (80.0-100.0) fL MCH 29.1 (25.0-34.0) pg MCHC 31.4 L (32.0-36.0) g/dL RDW Std Deviation 48.4 H (36.4-46.3) fL RDW Coeff of Jesika 14.3 (11.5-14.5) % Plt Count 225 (130-400) K/uL MPV 10.0 (9.4-12.4) fL Immature Gran % (Auto) 0.4 % Neut % (Auto) 71.7 % Lymph % (Auto) 14.6 % [place] % (Auto) 9.4 % Eos % (Auto) 3.5 % Baso % (Auto) 0.4 % Neut # (Auto) 7.14 H (1.40-6.50) K/uL Lymph # (Auto) 1.46 (1.20-3.40) K/uL [place] # (Auto) 0.94 H (0.11-0.59) K/uL Eos # (Auto) 0.35 (0.00-0.50) K/uL Baso # (Auto) 0.04 (0.00-0.20) K/uL Immature Gran # (Auto) 0.04 (0.01-0.20) K/uL PT Cancelled INR Cancelled APTT Cancelled PTT Ratio Cancelled Sodium 139 (136-145) mmol/L Potassium 4.6 (3.5-5.1) mmol/L Chloride 97 L (98-107) mmol/L Carbon Dioxide 37 H (21-32) mmol/L Anion Gap 5 (3-11) BUN 27 H (6-23) mg/dl Creatinine 1.24 H (0.6-1.2) mg/dl Est Cr Clr Drug Dosing Not Reportable Est GFR ( Amer) 46.2 ml/min Est GFR (Non-Af Amer) 39.9 ml/min BUN/Creatinine Ratio 21.8 H (10-20) Glucose 167 H (70-99(Fasting)) mg/dl Calcium 10.1 (8.6-10.3) mg/dl Magnesium 1.7 (1.7-2.4) mg/dl Total Bilirubin 0.6 (0.2-1.0) mg/dl AST 23 (13-39) U/L ALT 24 (7-52) U/L Alkaline Phosphatase 117 H (34-104) U/L Troponin I High Sens 27.7 H (0-14) pg/ml B-Natriuretic Peptide (0-100) pg/ml Total Protein 6.7 (6.0-8.3) gm/dl Albumin 4.1 (3.4-5.0) gm/dl Globulin 2.6 (2.5-4.0) gm/dl Albumin/Globulin Ratio 1.6 (0.9-2) Urine Color Urine Appearance (Clear) Urine pH (4.5-7.5) Ur Specific [place] (1.000-1.030) Urine Protein (Negative) Urine Glucose (UA) (Negative) Urine Ketones (Negative) Urine Blood (Negative) Urine Nitrite (Negative) Urine Bilirubin (Negative) Urine Urobilinogen (Negative) Ur Leukocyte Esterase (Negative) 06/11/23 06/11/23 06/11/23 Range/Units 19:15 21:44 Unknown WBC (4.8-10.8) K/ul RBC (4.20-5.40) M/uL Hgb (12.0-16.0) g/dl Hct (37.0-47.0) % MCV (80.0-100.0) fL MCH (25.0-34.0) pg MCHC (32.0-36.0) g/dL RDW Std Deviation (36.4-46.3) fL RDW Coeff of Jesika (11.5-14.5) % Plt Count (130-400) K/uL MPV (9.4-12.4) fL Immature Gran % (Auto) % Neut % (Auto) % Lymph % (Auto) % [place] % (Auto) % Eos % (Auto) % Baso % (Auto) % Neut # (Auto) (1.40-6.50) K/uL Lymph # (Auto) (1.20-3.40) K/uL [place] # (Auto) (0.11-0.59) K/uL Eos # (Auto) (0.00-0.50) K/uL Baso # (Auto) (0.00-0.20) K/uL Immature Gran # (Auto) (0.01-0.20) K/uL PT 11.4 INR 1.0 APTT 25.6 PTT Ratio 0.9 Sodium (136-145) mmol/L Potassium (3.5-5.1) mmol/L Chloride (98-107) mmol/L Carbon Dioxide (21-32) mmol/L Anion Gap (3-11) BUN (6-23) mg/dl Creatinine (0.6-1.2) mg/dl Est Cr Clr Drug Dosing Est GFR ( Amer) ml/min Est GFR (Non-Af Amer) ml/min BUN/Creatinine Ratio (10-20) Glucose (70-99(Fasting)) mg/dl Calcium (8.6-10.3) mg/dl Magnesium (1.7-2.4) mg/dl Total Bilirubin (0.2-1.0) mg/dl AST (13-39) U/L ALT (7-52) U/L Alkaline Phosphatase (34-104) U/L Troponin I High Sens (0-14) pg/ml B-Natriuretic Peptide 380 H (0-100) pg/ml Total Protein (6.0-8.3) gm/dl Albumin (3.4-5.0) gm/dl Globulin (2.5-4.0) gm/dl Albumin/Globulin Ratio (0.9-2) Urine Color Yellow Urine Appearance Clear (Clear) Urine pH 8.0 H (4.5-7.5) Ur Specific [place] 1.014 (1.000-1.030) Urine Protein Negative (Negative) Urine Glucose (UA) Negative (Negative) Urine Ketones Negative (Negative) Urine Blood Negative (Negative) Urine Nitrite Negative (Negative) Urine Bilirubin Negative (Negative) Urine Urobilinogen Negative (Negative) Ur Leukocyte Esterase Negative (Negative) Administered Medications Hydrocodone Bitart/Acetaminophen (Hydrocodone/Acetamophen 5/325mg Tab) 1 tab PO Q4H PRN PRN Reason: Pain Stop: 06/26/23 06:28 Last Admin: 06/12/23 13:55 Dose: 1 tab Documented By: Admin: 06/12/23 08:27 Dose: 1 tab Documented By: CAIT Albuterol (Albuterol Hfa 8 Gm Inhaler (Combivent Respimat P&T Subs)) 1 puffs INH QIDR ANDREA; Protocol Stop: 07/12/23 06:59 Last Admin: 06/12/23 18:02 Dose: 1 puffs Documented By: [id number] Admin: 06/12/23 15:26 Dose: 1 puffs Documented By: [id number] Admin: 06/12/23 11:06 Dose: 1 puffs Documented By: [id number] Admin: 06/12/23 08:03 Dose: 1 puffs Documented By: [id number] Aspirin (Aspirin 81 Mg Ectab) 81 mg PO DAILY ANDREA Stop: 07/12/23 08:59 Last Admin: 06/12/23 08:09 Dose: 81 mg Documented By: DTT Atorvastatin Calcium (Atorvastatin 40 Mg Tab) 40 mg PO QAM [facility] Stop: 07/12/23 08:59 Last Admin: 06/12/23 08:08 Dose: 40 mg Documented By: DTT Dicyclomine HCl (Dicyclomine Hcl 20 Mg Tab) 20 mg PO DAILY [facility] Stop: 07/12/23 08:59 Last Admin: 06/12/23 08:07 Dose: 20 mg Documented By: DTT Dorzolamide HCl (Dorzolamide Hcl 2% Oph Soln 10 Ml Btl) 1 drops OP BID ANDREA Stop: 07/12/23 08:59 Last Admin: 06/12/23 08:09 Dose: 1 drops Documented By: DTT Enoxaparin Sodium (Enoxaparin Inj 40 Mg/0.4 Ml Syr) 40 mg SQ Q12H ANDREA Stop: 07/12/23 08:59 Last Admin: 06/12/23 08:09 Dose: 40 mg Documented By: DTT Furosemide (Furosemide 40 Mg/4 Ml Vial) 40 mg IV BID17 ANDREA Stop: 07/12/23 08:59 Last Admin: 06/12/23 17:30 Dose: 40 mg Documented By: Admin: 06/12/23 08:11 Dose: 40 mg Documented By: DTT Insulin Aspart (Insulin Aspart Per Unit Charge) 0 units SC ACHS ANDREA Stop: 07/12/23 07:29 Last Admin: 06/12/23 17:30 Dose: 1 units Documented By: CAIT Co-signed By: [email or web address] Admin: 06/12/23 12:41 Dose: Not Given Documented By: Admin: 06/12/23 08:10 Dose: 1 units Documented By: CAIT Co-signed By: HSM Ipratropium [place] (Ipratropium Hfa Inhaler (Combivent Respimat P&T Subs)) 1 puffs INH QIDR [facility]; Protocol Stop: 07/12/23 06:59 Last Admin: 06/12/23 18:03 Dose: 1 puffs Documented By: [id number] Admin: 06/12/23 15:26 Dose: 1 puffs Documented By: [id number] Admin: 06/12/23 11:06 Dose: 1 puffs Documented By: [id number] Admin: 06/12/23 08:04 Dose: 1 puffs Documented By: [id number] Methimazole (Methimazole 5 Mg Tablet) 5 mg PO DAILY [facility] Stop: 07/12/23 08:59 Last Admin: 06/12/23 08:08 Dose: 5 mg Documented By: DTT Metoprolol Succinate (Metoprolol Succ 25mg Ext Rel Tab) 12.5 mg PO DAILY [facility] Stop: 07/12/23 08:59 Last Admin: 06/12/23 08:07 Dose: 12.5 mg Documented By: DTT Pantoprazole Sodium (Pantoprazole 40 Mg Tab) 40 mg PO DAILY [facility] Stop: 07/12/23 08:59 Last Admin: 06/12/23 08:07 Dose: 40 mg Documented By: DTT Sertraline HCl (Sertraline Hcl 50 Mg Tablet) 25 mg PO DAILY [facility] Stop: 07/12/23 08:59 Last Admin: 06/12/23 08:07 Dose: 25 mg Documented By: DTT Sucralfate (Sucralfate 1 Gm Tab) 1 gm PO ACHS PRN PRN Reason: Gi Upset Stop: 07/12/23 06:24 Last Admin: 06/12/23 13:55 Dose: 1 gm Documented By: DTT Umeclidinium [place] (Umeclidinium [place] 62.5mcg/Blister 7 Puffs/Inhaler) 1 puffs INH DAILY [facility] Stop: 07/12/23 08:59 Last Admin: 06/12/23 08:10 Dose: Not Given Documented By: DTT Vitamin D (Cholecalciferol 1,000 Units 25 Mcg Tab) 2,000 units PO QAM [facility] Stop: 07/12/23 08:59 Last Admin: 06/12/23 08:07 Dose: 2,000 units Documented By: DTT Discontinued Medications Fentanyl Citrate (Fentanyl Citrate Pf 100 Mcg/2 Ml Vial) 50 mcg IV NOW STA Stop: 06/12/23 00:17 Last Admin: 06/12/23 00:23 Dose: 50 mcg Documented By: YUNIOR Furosemide (Furosemide 40 Mg/4 Ml Vial) 40 mg IV ONE ONE Stop: 06/12/23 00:17 Last Admin: 06/12/23 00:24 Dose: 40 mg Documented By: YUNIOR Hydromorphone HCl (Hydromorphone Inj 0.5 Mg/0.5 Ml Syr) 0.5 mg IV NOW STA Stop: 06/12/23 02:32 Last Admin: 06/12/23 02:48 Dose: 0.5 mg Documented By: YUNIOR Hydromorphone HCl (Hydromorphone Inj 0.5 Mg/0.5 Ml Syr) 0.25 mg IV NOW STA Stop: 06/12/23 06:30 Last Admin: 06/12/23 06:41 Dose: 0.25 mg Documented By: SEGUN Imaging Data Radiologist's Impression: Chest X-Ray 06/11/23 18:38 SINGLE VIEW CHEST CLINICAL HISTORY: Dyspnea FINDINGS: An AP upright chest radiograph is compared to chest x-ray and chest CT dated 11/16/2022. The examination is degraded by apical lordotic positioning. The heart is enlarged. There is pulmonary vascular congestion. Enlargement of the central pulmonary vessels suggests pulmonary artery hypertension. There is bibasilar scarring/atelectasis. Trace pleural effusions are suspected. No pneumothorax is seen. The skeletal structures are osteopenic. The bony thorax is grossly intact. IMPRESSION: 1. Cardiomegaly with pulmonary vascular congestion. 2. Suspect trace pleural effusions.. ACT 112: Negative or not required by law. Electronically signed by: Pepito Guillen M.D. 06/11/2023 9:01 PM Discharge Plan Visit Data Chief Complaint: Shortness of Breath/Dyspnea Stated Complaint: SOB, ASTHMA ED Provider: Jessica Maldonado Discharge Problem: CHF (congestive heart failure), Elevated troponin Patient Disposition: Admitted As Inpatient Discharge Instructions Interventions: ED Discharge Assessment Last Done: 06/12/23 05:44
[2023-06-12] MEDS ORDERED: POLYETHYLENE (MIRALAX) 17 GM PACK PO PRN (06:25)
[2023-06-12] MEDS ORDERED: ACETAMINOPHEN 325 MG TAB PO PRN (06:25)
[2023-06-12] MEDS ORDERED: GLUCOSE 10 TAB/TUBE PO PRN (06:25)
[2023-06-12] MEDS ORDERED: CARBOHYDRATES FOR HYPOGLYCEMIA PO PRN (06:25)
[2023-06-12] MEDS ORDERED: NITROGLYCERIN SL 0.4 MG/TAB TAB SL PRN (06:25)
[2023-06-12] MEDS ORDERED: GLUCAGON FOR INJ 1 MG VIAL SQ PRN (06:25)
[2023-06-12] MEDS ORDERED: DEXTROSE 50% 50 ML SYRINGE IV PRN (06:25)
[2023-06-12] MEDS ORDERED: ALBUTEROL HFA 8 GM INHALER INH PRN (06:25)
[2023-06-12] MEDS ORDERED: GLUCOSE 40% GEL 15 GM TUBE PO PRN (06:25)
[2023-06-12] MEDS ORDERED: oxyCODONE HCL IR 5 MG TAB (IMMEDIATE RELEASE) PO PRN (06:25)
[2023-06-12 07:08] LABS: Basophils # (auto) 0.06 K/uL (0.00-0.20); Basophils % (auto) 0.6 %; Eosinophils # (auto) 0.44 K/uL (0.00-0.50); Eosinophils % (auto) 4.3 %; Hematocrit (blood only) 37.2 % (37.0-47.0); Hemoglobin 11.1 g/dl (12.0-16.0); Immature Granulocytes # (auto) 0.04 K/uL (0.01-0.20); Immature Granulocytes % (auto) 0.4 %; Lymphocytes # (auto) 2.01 K/uL (1.20-3.40); Lymphocytes % (auto) 19.7 %; Mean Corpuscular Hemoglobin 28.5 pg (25.0-34.0); Mean Corpuscular Hgb Conc 29.8 g/dL (32.0-36.0); Mean Corpuscular Volume 95.4 fL (80.0-100.0); Mean Platelet Volume 10.1 fL (9.4-12.4); Monocytes # (auto) 1.29 K/uL (0.11-0.59); Monocytes % (auto) 12.6 %; Neutrophils # (auto) 6.36 K/uL (1.40-6.50); Neutrophils % (auto) 62.4 %; Platelet Count 238 K/uL (130-400); RDW Coefficient of Variation 14.1 % (11.5-14.5); RDW Standard Deviation 49.1 fL (36.4-46.3)
[2023-06-12 07:19] LABS: Estimated Average Glucose 148 mg/dl; Hemoglobin A1C 6.8 % (4.5-5.6)
[2023-06-12] MEDS: Albuterol HFA 8 GM Inhaler (Combivent Respimat P&T Subs) INH SCH ×4 (08:03→18:02)
[2023-06-12] MEDS: Ipratropium HFA Inhaler (Combivent Respimat P&T Subs) INH SCH ×4 (08:04→18:03)
[2023-06-12] MEDS: CHOLECALCIFEROL 1,000 UNITS 25 MCG TAB PO SCH (08:07)
[2023-06-12] MEDS: SERTRALINE HCL 50 MG TABLET PO SCH (08:07)
[2023-06-12] MEDS: DICYCLOMINE HCL 20 MG TAB PO SCH (08:07)
[2023-06-12] MEDS: PANTOprazole 40 MG TAB PO SCH (08:07)
[2023-06-12] MEDS: METOPROLOL SUCC 25MG EXT REL TAB PO SCH (08:07)
[2023-06-12] MEDS: methIMAzole 5 MG TABLET PO SCH (08:08)
[2023-06-12] MEDS: ATORVASTATIN 40 MG TAB PO SCH (08:08)
[2023-06-12] MEDS: DORZOLAMIDE HCL 2% OPH SOLN 10 ML BTL OP SCH ×2 (08:09→20:37)
[2023-06-12] MEDS: ENOXAPARIN INJ 40 MG/0.4 ML SYR SQ SCH ×2 (08:09→20:54)
[2023-06-12] MEDS: ASPIRIN 81 MG ECTAB PO SCH (08:09)
[2023-06-12] MEDS: UMECLIDINIUM BROMIDE 62.5MCG/BLISTER 7 PUFFS/INHALER INH SCH (08:10)
[2023-06-12] MEDS: INSULIN ASPART PER UNIT CHARGE SC SCH ×4 (08:10→20:36)
[2023-06-12] MEDS: FUROSEMIDE 40 MG/4 ML VIAL IV SCH ×2 (08:11→17:30)
[2023-06-12 08:22] LABS: BUN Creatinine Ratio 21.9 (10-20); Calcium 9.6 mg/dl (8.6-10.3); Creatinine Clr Calc Pharmacy 40.3 ml/min; Est GFR (African American) 44.5 ml/min; Est GFR (Non-African American) 38.4 ml/min; Magnesium 1.6 mg/dl (1.7-2.4); Potassium 4.2 mmol/L (3.5-5.1); Troponin I High Sensitivity 37.1 pg/ml (0-14)
--- NOTE | 2023-06-12 08:23 | Cardiology Consultation ---
Date of Consultation June 12, 2023 Assessment & Plan (1) Acute on chronic systolic (congestive) heart failure: (2) Chronic respiratory failure with hypoxia and hypercapnia: (3) Permanent atrial fibrillation: Plan Medically complex 82 year old female with chronic respiratory failure admitted for progressive shortness of breath and fluid retention. Carries a history of chronic systolic HF with an EF of ~45%. Hypervolemic on exam. Echo pending. Acute on chronic HFrEF: Continue diuresis with IV Lasix 40 mg BID (normally maintained on PO Lasix 40 mg BID) Continue Aldactone 12.5 mg MWF CHF EDU Trend BMP, potassium goal of 4.0 and mag goal of 2.0 Permanent Atrial Fibrillation: Ventricular rates well controlled- continue metoprolol succinate 12.5 mg daily [id number] score of 5 (age 1, female, CHF, hypertension), no AC s/p watchman implant 11/[address] Quiles- will follow. Supervising Physician Co-Signing Physician Notes Patient seen and personally examined. Chart and records and imaging studies personally reviewed Echocardiogram demonstrates reduced ejection fraction in comparison to past mild aortic stenosis. Chest x-ray and exam consistent with decompensated acute on chronic congestive heart failure with significant volume overload Patient with underlying oxygen demands from pulmonary disease as well We will continue IV diuretics and follow outputs. Will require significant diuresis. Maintain oxygen supplementation History of Present Illness Reason for Consultation: Acute on chronic systolic CHF Requesting Physician: Min Moya Attending Physician: Areli Dela Cruz MD History of Present Illness 82-year-old female with past medical history significant for chronic systolic heart failure with LVEF 40 to 45% presented to [facility] emergency department due to x1 week of progressive shortness of breath, orthopnea, lower extremity edema and profound weakness. Chest x-ray revealed: Pulmonary vascular congestion and pleural effusions. Received 40 mg of IV Lasix in the emergency department and was started on 40 mg IV twice daily. Normally maintained of PO Lasix 40 mg BID at home. Home spironolactone dose (12.5 mg MWF) was continued. Echocardiogram pending. Tele: Permanent AFIB 80-90s I&O: n/a Weight: 115 kg >>109.7 kg Upon entrance into the room patient resting in bed. Echo being obtained. Patient with ongoing concerns of dyspnea and orthopnea. Normally can lay flat in bed despite chronic lung disease and now requires HOB to be ~90 degrees. Maintained on 2L NC (baseline)- o2 sats in the mid 90s. +lower extremity edema and abdominal bloating. Per the patient she is up about ~20 lbs from her baseline. No chest pain or palpitations. No lightheadedness. Denies any missed medications or dietary indescretions recently. 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 Lopez Past medical history: 1.Chronic heart failure with reduced ejection fraction, EF 40-45% 02/2021, NYHA class 3 2.Nonischemic cardiomyopathy, cardiac catheterization performed 11/2020 in [place] demonstrated mild nonobstructive CAD 3.Permanent atrial fibrillation, [id number] score of 5 (age 1, female, CHF, hypertension), no AC s/p watchman implant 11/2019 4.Severe oxygen-dependent COPD with chronic hypercapnia and moderate pulmonary HTN 5.Iron deficiency anemia, following with Hematology/Oncology 6.Mitral regurgitation (moderate per echo 08/2021) 7. Hx of recurrent diverticulitis and colovesical fistula [place] [facility] [place] Allergies Allergy/AdvReac Type Severity Reaction Status Date / Time salmon oil Allergy Severe HIVES-REDDENED Verified 06/11/23 23:41 ALL OVER Iodinated Contrast Media Allergy Intermediate HIVES-GI Verified 06/11/23 23:41 SYMPTOMS valsartan Allergy Intermediate FAST HEART Verified 06/11/23 23:41 BEAT bupropion AdvReac Intermediate GI SYMPTOMS Verified 06/11/23 23:41 enalapril AdvReac Intermediate GI SYMPTOMS Verified 06/11/23 23:41 escitalopram AdvReac Intermediate GI SYMPTOMS Verified 06/11/23 23:41 metoprolol AdvReac Intermediate LOWERS Verified 06/11/23 23:41 PULSE RATE verapamil AdvReac Intermediate GI UPSET, Verified 06/11/23 23:41 fast heart rate Home Medications Medication Instructions Recorded Confirmed Type atorvastatin 40 mg tablet 40 mg PO QAM 06/23/19 06/11/23 History cholecalciferol (vitamin D3) 25 2,000 unit PO QAM 06/23/19 06/11/23 History mcg (1,000 unit) capsule (Vitamin D3) albuterol sulfate 2.5 mg/3 mL 2.5 mg inhalation BID PRN 09/25/19 06/11/23 History (0.083 %) solution for nebulization .WORSENING ASTHMA bimatoprost 0.01 % eye drops 1 drp OPB HS 09/25/19 06/11/23 History (Lumigan) ferrous sulfate 325 mg (65 mg 325 mg PO HS 02/23/20 06/11/23 History iron) tablet (iron) aspirin 81 mg tablet,delayed 81 mg PO DAILY 02/05/21 06/11/23 History release (Kenzie Low Dose Aspirin) ipratropium 20 mcg-albuterol 100 1 puff inhalation QID 04/09/21 06/11/23 History mcg/actuation mist for inhalation (Combivent Respimat) potassium chloride 20 mEq 20 meq PO HS 04/09/21 06/11/23 History tablet,extended release(part/cryst) (Klor-Con M) dicyclomine 20 mg tablet 20 mg PO DAILY 01/14/22 06/11/23 History spironolactone 25 mg tablet 12.5 mg PO 3XWK 01/14/22 06/11/23 History sertraline 25 mg tablet 25 mg PO DAILY 03/13/22 06/11/23 History furosemide 40 mg tablet 40 mg PO BID 05/31/22 06/11/23 History methimazole 5 mg tablet 5 mg PO DAILY 07/17/22 06/11/23 History metoprolol succinate 25 mg 12.5 mg PO DAILY 07/17/22 06/11/23 History tablet,extended release 24 hr dorzolamide 2 % eye drops 1 drp ophthalmic (eye) BID 11/16/22 06/11/23 History glimepiride 2 mg tablet 2 mg PO DAILY PRN NEEDED PER PT 11/16/22 06/11/23 History oxycodone 5 mg tablet 5 mg PO Q4H PRN Pain 11/16/22 06/11/23 History pantoprazole 40 mg tablet,delayed 40 mg PO DAILY 11/16/22 06/11/23 History release sucralfate 1 gram tablet 1 g PO ACHS PRN Gi Upset 11/16/22 06/11/23 History tiotropium bromide 2.5 2 puff inhalation DAILY #1 inhaler 02/10/23 06/11/23 Rx mcg/actuation mist for inhalation (Spiriva Respimat) albuterol sulfate 90 mcg/actuation 2 puff inhalation QID PRN 06/11/23 06/11/23 History aerosol inhaler Shortness Of Breath Patient History Medical History Aortic valve stenosis, mild Asthma Chris-tachy syndrome Chronic atrial fibrillation Chronic diastolic CHF (congestive heart failure) Chronic HFrEF (heart failure with reduced ejection fraction) Chronic respiratory failure with hypoxia and hypercapnia Colovesical fistula COPD (chronic obstructive pulmonary disease) Dehiscence of fascia Diabetes mellitus, type 2 Diverticulitis large intestine Esophageal reflux Glaucoma of both eyes Hyperlipidemia Hypertension Lower GI bleed NICM (nonischemic cardiomyopathy) On home oxygen therapy 2L N/C at all times and 4 L N/C at night JORDAN (obstructive sleep apnea) Sleep apnea Subclinical hyperthyroidism Subepithelial mass of stomach Surgical History H/O colonoscopy "04/2014 - diverticular disease throughout colon, internal hemorrhoids, polyp removed" History of appendectomy History of cardiac cath "YEARS AGO"NO BLOCKAGES/NO STENTS-F/U DR THOMSON History of cholecystectomy History of dilatation and curettage History of esophagogastroduodenoscopy (EGD) "04/2014 - normal" History of incisional hernia repair History of tooth extraction all teeth Hx of small bowel obstruction "11/2017 - Seen [facility] - surgical intervention" Nausea and vomiting after administration of anesthetic agent Presence of Watchman left atrial appendage closure device 11/[address] [facility] Dr[address] Velez S/P colon resection Status post tonsillectomy and adenoidectomy Status post tubal ligation Family History Mother Breast cancer Father Heart disease Brother COPD (chronic obstructive pulmonary disease) Aunt Diabetes Son JORDAN (obstructive sleep apnea) Daughter Asthma Other No family history of adverse response to anesthesia No pertinent family history in first degree relatives 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 Smoking Status: Never smoker Second Hand Exposure: No; Do You Dip or Chew Tobacco: No; Tobacco Cessation Education Requested by Patient: No Hx Alcohol Use: No Hx Substance Use: No Preferred Language: Cape Verdean Communication Ability: Effective Intelligence Intern Required: No Beliefs That Will Affect Care: None marital status: / Current Living Situation: Alone Other Information That Helps Us Care for You: No Feels Safe at Home: Yes Safety Concerns: Feels Safe At This Time Assistive Devices: Denture - Upper, Glasses and Oxygen - Continuous Review of Systems Review of Systems: All systems reviewed & are unremarkable except as noted in HPI & below Physical Exam Constitutional: WD/WN, vitals as above no acute distress Eyes: PERRL, conjunctivae normal, anicteric sclerae Neck: normal visual inspection and trachea midline Respiratory: + labored breathing and + tachypneic Auscultation: + rales, + wheezes and + bronchovesicular breath sounds; no rhonchi Cardiovascular: Rate/Rhythm: regular rate and + irregularly irregular Heart Sounds: normal S1 and normal S2 Vessels: + JVD Extremities: + edema (+3 BLLE pitting edema) Gastrointestinal (Abdomen): normal bowel sounds, soft, nontender, no hepatosplenomegaly Psychiatric: A+Ox3, euthymic affect Results & Data Vital Signs (Past 12 Hours) Vital Signs Temp Pulse Pulse Resp BP BP Pulse Ox 06/12/23 08:06 88 19 97 06/12/23 07:53 36.5 C 67 18 126/83 91 06/12/23 06:36 06/12/23 06:26 36.7 C 107 H 22 141/96 H 93 06/12/23 05:30 100 H 25 H 126/102 H 93 06/12/23 05:01 91 H 19 130/80 92 06/12/23 04:35 104 H 19 121/71 94 06/12/23 04:01 94 H 17 148/97 H 94 06/12/23 03:43 103 H 19 97 06/12/23 03:31 96 H 06/12/23 01:02 94 H 18 197/164 H 95 06/12/23 00:33 115 H 19 96/57 L 95 06/12/23 03:01 91 H 22 129/75 97 06/12/23 00:00 94 H 23 96 06/11/23 23:32 101 H 25 H 153/93 H 99 06/11/23 23:30 97 H 21 96 06/11/23 23:26 103 H 06/11/23 23:16 96 O2 Del Method O2 Flow Rate 06/12/23 08:06 Nasal Cannula 2 06/12/23 07:53 Nasal Cannula 4 06/12/23 06:36 Nasal Cannula 4 06/12/23 06:26 Nasal Cannula 4 06/12/23 05:30 4 06/12/23 05:01 4 06/12/23 04:35 4 06/12/23 04:01 Nasal Cannula 4 06/12/23 03:43 Nasal Cannula 4 06/12/23 03:31 06/12/23 01:02 Nasal Cannula 2 06/12/23 00:33 06/12/23 03:01 Nasal Cannula 2 06/12/23 00:00 06/11/23 23:32 Nasal Cannula 4 06/11/23 23:30 Nasal Cannula 4 06/11/23 23:26 06/11/23 23:16 Nasal Cannula 2 Laboratory Results Cardiac Enzymes 06/11/23 06/11/23 06/12/23 Range/Units 19:15 19:15 06:36 AST 23 (13-39) U/L Troponin I High Sens 27.7 H 37.1 H (0-14) pg/ml B-Natriuretic Peptide 380 H (0-100) pg/ml Coagulation 06/11/23 06/11/23 06/11/23 Range/Units 19:15 19:15 21:44 PT Cancelled 11.4 APTT Cancelled 25.6 B-Natriuretic Peptide 380 H (0-100) pg/ml CBC 06/11/23 06/12/23 Range/Units 19:15 06:36 WBC 9.97 10.20 (4.8-10.8) K/ul RBC 3.82 L 3.90 L (4.20-5.40) M/uL Hgb 11.1 L 11.1 L (12.0-16.0) g/dl Hct 35.4 L 37.2 (37.0-47.0) % Plt Count 225 238 (130-400) K/uL Neut # (Auto) 7.14 H 6.36 (1.40-6.50) K/uL Lymph # (Auto) 1.46 2.01 (1.20-3.40) K/uL [place] # (Auto) 0.94 H 1.29 H (0.11-0.59) K/uL Eos # (Auto) 0.35 0.44 (0.00-0.50) K/uL Baso # (Auto) 0.04 0.06 (0.00-0.20) K/uL Comprehensive Metabolic Panel 06/11/23 06/12/23 Range/Units 19:15 06:36 Sodium 139 141 (136-145) mmol/L Potassium 4.6 4.2 (3.5-5.1) mmol/L Chloride 97 L 95 L (98-107) mmol/L Carbon Dioxide 37 H 41 H* (21-32) mmol/L BUN 27 H 28 H (6-23) mg/dl Creatinine 1.24 H 1.28 H (0.6-1.2) mg/dl Glucose 167 H 160 H (70-99(Fasting)) mg/dl Calcium 10.1 9.6 (8.6-10.3) mg/dl AST 23 (13-39) U/L ALT 24 (7-52) U/L Alkaline Phosphatase 117 H (34-104) U/L Total Protein 6.7 (6.0-8.3) gm/dl Albumin 4.1 (3.4-5.0) gm/dl Intake and Output 06/11/23 06/12/23 06/12/23 22:59 06:59 14:59 Other: Weight 109.7 kg Weight Measurement Method Standing Scale
[2023-06-12] MEDS: HYDROCODONE/ACETAMOPHEN 5/325MG TAB PO PRN ×3 (08:27→19:39)
[2023-06-12] MEDS ORDERED: IPRATROPIUM BROMIDE/ALBUTEROL respimat INH INH SCH (09:00)
--- NOTE | 2023-06-12 10:42 | Communication Note ---
Date of Service: June 12, 2023 Patient seen and examined Reports worsening SOB/KULKARNI/leg edema over the past week Uses 2L of oxygen during daytime and 4L at nighttime Exam notable for elderly woman on nasal oxygen, +rales on auscultation, +pedal edema TTE showed worsened EF 30-35, severely dil LA,mild to mod MR, mild to mod TR, RVSP 30-40, mod global hypokinesis of LV Continue IV lasix Luan jones noted Other plans as detailed in H&P this morning
[2023-06-12] MEDS: SUCRALFATE 1 GM TAB PO PRN (13:55)
[2023-06-12] MEDS: BIMATOPROST 0.01% OP SOLN 2.5 ML BTL OP SCH (20:37)
[2023-06-12] MEDS: FERROUS SULFATE 325 MG TAB PO SCH (20:39)
[2023-06-12] MEDS: POTASSIUM CHLORIDE CRTAB 20 MEQ TABCR PO SCH (20:40)
[2023-06-13] MEDS: HYDROCODONE/ACETAMOPHEN 5/325MG TAB PO PRN ×4 (01:18→20:39)
[2023-06-13] MEDS: Albuterol HFA 8 GM Inhaler (Combivent Respimat P&T Subs) INH SCH ×4 (07:16→19:33)
[2023-06-13] MEDS: Ipratropium HFA Inhaler (Combivent Respimat P&T Subs) INH SCH ×4 (07:16→19:33)
[2023-06-13 07:26] LABS: BUN Creatinine Ratio 25.4 (10-20); Calcium 9.4 mg/dl (8.6-10.3); Creatinine Clr Calc Pharmacy 37.6 ml/min; Est GFR (African American) 40.6 ml/min; Potassium 4.4 mmol/L (3.5-5.1)
--- NOTE | 2023-06-13 07:39 | Cardiology Progress Note ---
Date of Service June 13, 2023 Assessment & Plan (1) Acute on chronic systolic (congestive) heart failure: (2) Chronic respiratory failure with hypoxia and hypercapnia: (3) Permanent atrial fibrillation: Plan Medically complex 82 year old female with chronic respiratory failure admitted for progressive shortness of breath and fluid retention. Carries a history of chronic systolic HF with an EF of ~45%. Hypervolemic on exam. Echo pending. Acute on chronic HFrEF: Remains hypervolemic on exam, but responding to diuretic therapy. Continue diuresis with IV Lasix 40 mg BID (normally maintained on PO Lasix 40 mg BID) Continue Aldactone 12.5 mg MWF CHF EDU Trend BMP, potassium goal of 4.0 and mag goal of 2.0 Permanent Atrial Fibrillation: Ventricular rates controlled- continue metoprolol succinate 12.5 mg daily [id number] score of 5 (age 1, female, CHF, hypertension), no AC s/p watchman implant 11/[address] Quiles- will follow. Admission and Anticipated Discharge Date Admission Date: June 12, 2023 Supervising Physician Co-Signing Physician Notes Patient seen and examined, chart, medications, telemetry reviewed. Complex 82-year-old female with underlying history of nonischemic cardiomyopathy superimposed on chronic hypoventilatory lung disease, O2 dependent Records reflect prior treatment with higher dose of metoprolol succinate and RODRIGO inhibitor prior to multiple admissions for complicated abdominal abscess, diverticular disease Patient still dyspneic with activity less dyspneic at rest Weight down with diuresis and leg edema improving but pulmonary status limiting We will continue IV diuretics additional 2 doses then reassess Add oral nitrates to her regimen preload reduction with 10 mg isosorbide dinitrate twice a day Consider upward titration of metoprolol succinate/addition of RODRIGO inhibitor regimen depending on clinical course and renal function Subjective Medically complex 82 year old female with chronic respiratory failure presented to the ED markedly volume overloaded- admitted for management of acute on chronic HFrEF. Carries a history of chronic systolic HF with an EF of ~45%- echo this admission demonstrated LVEF of 30-35% with moderate global hypokinesis of the LV and mild aortic stenosis. Patient with underlying oxygen demands from pulmonary disease as well. 06/13/2023: Upon entrance into the room patient sleeping in bed. Woke easily. Shortness of breath minimal at rest, worse with activity. +orthopnea. +lower extremity edema. No chest pain. Denies palpitations. Tele: AFIB 80-90s I&O: -1.0L Weight: 115 kg >> 110.8 kg 06/12/2023: Diuresed with IV Lasix, 40 mg BID. Aldactone 12.5 mg MWF continued Review of Systems Review of Systems: All systems reviewed & are unremarkable except as noted in HPI & below Physical Exam Constitutional: WD/WN, vitals as above no acute distress Eyes: PERRL, conjunctivae normal, anicteric sclerae Neck: normal visual inspection and trachea midline Respiratory: + tachypneic; no labored breathing Auscultation: + rales, + wheezes and + bronchovesicular breath sounds; no rhonchi Cardiovascular: Rate/Rhythm: regular rate and + irregularly irregular Heart Sounds: normal S1 and normal S2 Vessels: + JVD Extremities: + edema (+2 BLLE pitting edema) Gastrointestinal (Abdomen): normal bowel sounds, soft, nontender, no hepatosplenomegaly Skin: no rashes, warm and dry Psychiatric: A+Ox3, euthymic affect Results & Data Vital Signs (Past 12 Hours) Vital Signs Temp Pulse Pulse Resp BP Pulse Ox O2 Del Method 06/13/23 07:18 90 95 Nasal Cannula 06/13/23 02:49 36.7 C 94 H 18 126/71 93 Nasal Cannula 06/13/23 00:23 87 06/13/23 00:23 Nasal Cannula 06/12/23 23:00 36.3 C L 89 20 141/96 H 94 Nasal Cannula O2 Flow Rate 06/13/23 07:18 2 06/13/23 02:49 06/13/23 00:23 06/13/23 00:23 2 06/12/23 23:00 Diagnostic Findings Cardiac Enzymes 06/12/23 06/12/23 Range/Units 12:21 19:05 Troponin I High Sens 34.6 H 34.1 H (0-14) pg/ml Comprehensive Metabolic Panel 06/13/23 Range/Units 06:34 Sodium 141 (136-145) mmol/L Potassium 4.4 (3.5-5.1) mmol/L Chloride 95 L (98-107) mmol/L Carbon Dioxide 42 H* (21-32) mmol/L BUN 35 H (6-23) mg/dl Creatinine 1.38 H (0.6-1.2) mg/dl Glucose 117 H (70-99(Fasting)) mg/dl Calcium 9.4 (8.6-10.3) mg/dl Intake and Output 06/12/23 06/13/23 06/13/23 22:59 06:59 14:59 Intake Total 240 / 390 150 / 390 Output Total 400 / 1400 Balance 240 / -1010 -250 / -1010 Intake: Oral 240 / 390 150 / 390 Output: Urine 400 / 400 Other: Weight 110.8 kg Weight Measurement Method Built in [facility]
[2023-06-13 08:03] LABS: Magnesium 1.6 mg/dl (1.7-2.4)
[2023-06-13] MEDS: INSULIN ASPART PER UNIT CHARGE SC SCH ×4 (08:33→20:50)
[2023-06-13] MEDS: FUROSEMIDE 40 MG/4 ML VIAL IV SCH ×2 (08:35→18:02)
[2023-06-13] MEDS: CHOLECALCIFEROL 1,000 UNITS 25 MCG TAB PO SCH (08:35)
[2023-06-13] MEDS: SPIRONOLACTONE 12.5 MG TAB PO SCH (08:35)
[2023-06-13] MEDS: methIMAzole 5 MG TABLET PO SCH (08:35)
[2023-06-13] MEDS: MAGNESIUM SULFATE / D5W 1 GM/100 ML BAG IV SCH ×2 (08:35→10:47)
[2023-06-13] MEDS: ASPIRIN 81 MG ECTAB PO SCH (08:36)
[2023-06-13] MEDS: SERTRALINE HCL 50 MG TABLET PO SCH (08:36)
[2023-06-13] MEDS: PANTOprazole 40 MG TAB PO SCH (08:36)
[2023-06-13] MEDS: ATORVASTATIN 40 MG TAB PO SCH (08:36)
[2023-06-13] MEDS: METOPROLOL SUCC 25MG EXT REL TAB PO SCH (08:36)
[2023-06-13] MEDS: ENOXAPARIN INJ 40 MG/0.4 ML SYR SQ SCH ×2 (08:36→20:43)
[2023-06-13] MEDS: UMECLIDINIUM BROMIDE 62.5MCG/BLISTER 7 PUFFS/INHALER INH SCH (08:36)
[2023-06-13] MEDS: DICYCLOMINE HCL 20 MG TAB PO SCH (08:37)
[2023-06-13] MEDS: DORZOLAMIDE HCL 2% OPH SOLN 10 ML BTL OP SCH ×2 (08:37→20:41)
--- NOTE | 2023-06-13 10:16 | Hospitalist Progress Note ---
Date of Service June 13, 2023 Assessment & Plan (1) Acute on chronic systolic (congestive) heart failure: Plan: 82-year-old female with past medical history significant for type 2 diabetes chronic hypoxemic respiratory failure on home oxygen, hyperlipidemia, espinosa bclinical hyperthyroidism, asthma, COPD, allergic rhinitis, sleep apnea, chronic systolic CHF, pulmonary hypertension, hypertension, paroxysmal atrial fibrillation s/p Watchman device placement, irritable bowel syndrome with constipation, morbid obesity, GERD, gastroparesis, history of ischemic colitis, chronic kidney stage III, UTI with ESBL, generalized osteoarthritis, history of elevated plasma metanephrines, general generalized anxiety disorder, depression presents with shortness of breath and found to have acute on chronic systolic CHF. Acute on chronic systolic CHF EF 40 to 45% on echo done in November 2022. And also severe mitral regurgitation. TTE on 06/12/23 showed worsened EF 30-35, severely dil LA,mild to mod MR, mild to mod TR, RVSP 30-40, mod global hypokinesis of LV Cardiology eval and recs noted Continue IV lasix 40mg BID Monitor I/O Monitor electrolytes and replete Replete hypomagnesemia Chronic hypoxic respiratory failure on home oxygen History of asthma and COPD and sleep apnea Reports she uses 2L of oxygen during daytime and 4L at nighttime Continue home inhalers and oxygen Type 2 diabetes Hold home p.o. medications Insulin sliding scale We will monitor the blood sugars HbA1c is 6.8 Atrial fibrillation s/p Watchman device placement Continue home metoprolol History of subclinical hyperthyroidism Continue home methimazole. TSH is 3.679 GERD on Protonix Chronic kidney stage III Presented with creatinine 1.24 Cr is 1.38 today Mild elevation troponin Mostly demand ischemia DVT prophylaxis Lovenox. Disposition telemetry. Full code I spent a total of 50 minutes coordinating, documenting and providing care for this patient excluding time spent in performance of separately billed services Admission and Anticipated Discharge Date Admission Date: June 12, 2023 Subjective Patient seen and examined Reports SOB at rest and worse with exertion Denied cough, chest pain Reports chronic low back pain Denied nausea, vomiting, abd pain, diarrhea Physical Exam Constitutional: + well hydrated and + obese; no acute distress Elderly woman Eyes: PERRL, conjunctivae normal, anicteric sclerae ENMT: external ear and nose normal, oropharynx normal Respiratory: no respiratory distress On nasal cannula +rales Cardiovascular: Rate/Rhythm: + irregularly irregular S1 S2 Gastrointestinal (Abdomen): normal bowel sounds, soft, nontender, no hepatosplenomegaly Musculoskeletal: +pedal edema Neurologic: PERRL, EOMI, accommodation nl, no face palsy, no dysarthria Psychiatric: A+Ox3, euthymic affect Results & Data Results & Data Vital Signs (Past 12 Hours) Vital Signs Temp Pulse Pulse Resp BP Pulse Ox O2 Del Method 06/13/23 09:00 87 06/13/23 09:14 Nasal Cannula 06/13/23 07:17 36.7 C 92 H 18 115/81 95 Nasal Cannula 06/13/23 07:18 90 95 Nasal Cannula 06/13/23 02:49 36.7 C 94 H 18 126/71 93 Nasal Cannula 06/13/23 00:23 87 06/13/23 00:23 Nasal Cannula 06/12/23 23:00 36.3 C L 89 20 141/96 H 94 Nasal Cannula O2 Flow Rate 06/13/23 09:00 06/13/23 09:14 3 06/13/23 07:17 2 06/13/23 07:18 2 06/13/23 02:49 06/13/23 00:23 06/13/23 00:23 2 06/12/23 23:00 Laboratory Results Abnormal lab results 06/12/23 06/12/23 06/12/23 Range/Units 16:31 19:05 20:02 Chloride (98-107) mmol/L Carbon Dioxide (21-32) mmol/L BUN (6-23) mg/dl Creatinine (0.6-1.2) mg/dl BUN/Creatinine Ratio (10-20) Glucose (70-99(Fasting)) mg/dl POC Glucose 159 H 186 H (70-99) mg/dl Magnesium (1.7-2.4) mg/dl Troponin I High Sens 34.1 H (0-14) pg/ml 06/13/23 06/13/23 06/13/23 Range/Units 06:34 07:27 11:18 Chloride 95 L (98-107) mmol/L Carbon Dioxide 42 H* (21-32) mmol/L BUN 35 H (6-23) mg/dl Creatinine 1.38 H (0.6-1.2) mg/dl BUN/Creatinine Ratio 25.4 H (10-20) Glucose 117 H (70-99(Fasting)) mg/dl POC Glucose 105 H 178 H (70-99) mg/dl Magnesium 1.6 L (1.7-2.4) mg/dl Troponin I High Sens (0-14) pg/ml
[2023-06-13] MEDS: LIDOCAINE 5% 1 PATCH TD SCH (12:16)
[2023-06-13] MEDS: ISOSORBIDE DINITRATE 10 MG TAB PO SCH (12:51)
[2023-06-13] MEDS: SUCRALFATE 1 GM TAB PO PRN (13:59)
[2023-06-13] MEDS: BIMATOPROST 0.01% OP SOLN 2.5 ML BTL OP SCH (20:40)
[2023-06-13] MEDS: POTASSIUM CHLORIDE CRTAB 20 MEQ TABCR PO SCH (20:44)
[2023-06-13] MEDS: FERROUS SULFATE 325 MG TAB PO SCH (20:44)
[2023-06-14] MEDS: HYDROCODONE/ACETAMOPHEN 5/325MG TAB PO PRN ×2 (01:10→07:51)
[2023-06-14] MEDS: Ipratropium HFA Inhaler (Combivent Respimat P&T Subs) INH SCH ×4 (07:08→19:00)
[2023-06-14] MEDS: Albuterol HFA 8 GM Inhaler (Combivent Respimat P&T Subs) INH SCH ×4 (07:08→19:00)
[2023-06-14 07:30] LABS: BUN Creatinine Ratio 27.5 (10-20); Calcium 9.5 mg/dl (8.6-10.3); Creatinine Clr Calc Pharmacy 36.1 ml/min; Est GFR (African American) 39.2 ml/min; Est GFR (Non-African American) 33.8 ml/min; Phosphorus 4.1 mg/dl (2.5-4.9); Potassium 4.3 mmol/L (3.5-5.1)
[2023-06-14 07:32] LABS: Hematocrit (blood only) 34.6 % (37.0-47.0); Mean Corpuscular Hemoglobin 28.8 pg (25.0-34.0); Mean Corpuscular Hgb Conc 31.8 g/dL (32.0-36.0); Mean Corpuscular Volume 90.6 fL (80.0-100.0); Mean Platelet Volume 10.5 fL (9.4-12.4); Platelet Count 252 K/uL (130-400); Red Blood Count 3.82 M/uL (4.20-5.40); White Blood Count 9.13 K/ul (4.8-10.8)
[2023-06-14] MEDS: INSULIN ASPART PER UNIT CHARGE SC SCH ×4 (07:52→20:11)
[2023-06-14] MEDS: ISOSORBIDE DINITRATE 10 MG TAB PO SCH ×2 (07:52→12:43)
[2023-06-14] MEDS: SUCRALFATE 1 GM TAB PO PRN (08:21)
[2023-06-14] MEDS ORDERED: traMADol HCL 50 MG TABLET PO PRN (08:45)
[2023-06-14] MEDS: methIMAzole 5 MG TABLET PO SCH (09:38)
[2023-06-14] MEDS: CHOLECALCIFEROL 1,000 UNITS 25 MCG TAB PO SCH (09:38)
[2023-06-14] MEDS: PANTOprazole 40 MG TAB PO SCH (09:38)
[2023-06-14] MEDS: SERTRALINE HCL 50 MG TABLET PO SCH (09:39)
[2023-06-14] MEDS: ASPIRIN 81 MG ECTAB PO SCH (09:39)
[2023-06-14] MEDS: ATORVASTATIN 40 MG TAB PO SCH (09:39)
[2023-06-14] MEDS: DICYCLOMINE HCL 20 MG TAB PO SCH (09:39)
[2023-06-14] MEDS: METOPROLOL SUCC 25MG EXT REL TAB PO SCH (09:39)
[2023-06-14] MEDS: DORZOLAMIDE HCL 2% OPH SOLN 10 ML BTL OP SCH ×2 (09:40→20:12)
[2023-06-14] MEDS: FUROSEMIDE 40 MG/4 ML VIAL IV SCH ×2 (09:40→17:27)
[2023-06-14] MEDS: UMECLIDINIUM BROMIDE 62.5MCG/BLISTER 7 PUFFS/INHALER INH SCH (09:40)
[2023-06-14] MEDS: LIDOCAINE 5% 1 PATCH TD SCH (09:40)
[2023-06-14] MEDS: ENOXAPARIN INJ 40 MG/0.4 ML SYR SQ SCH ×2 (09:40→20:13)
[2023-06-14] MEDS: ACETAMINOPHEN 325 MG TAB PO SCH ×3 (10:04→18:52)
--- NOTE | 2023-06-14 11:02 | Hospitalist Progress Note ---
Date of Service June 14, 2023 Assessment & Plan (1) Acute on chronic systolic (congestive) heart failure: Plan: 82-year-old female with past medical history significant for type 2 diabetes chronic hypoxemic respiratory failure on home oxygen, hyperlipidemia, espinosa bclinical hyperthyroidism, asthma, COPD, allergic rhinitis, sleep apnea, chronic systolic CHF, pulmonary hypertension, hypertension, paroxysmal atrial fibrillation s/p Watchman device placement, irritable bowel syndrome with constipation, morbid obesity, GERD, gastroparesis, history of ischemic colitis, chronic kidney stage III, UTI with ESBL, generalized osteoarthritis, history of elevated plasma metanephrines, general generalized anxiety disorder, depression presents with shortness of breath and found to have acute on chronic systolic CHF. Acute on chronic systolic CHF EF 40 to 45% on echo done in November 2022. And also severe mitral regurgitation. TTE on 06/12/23 showed worsened EF 30-35, severely dil LA,mild to mod MR, mild to mod TR, RVSP 30-40, mod global hypokinesis of LV Cardiology eval and recs noted Currently on IV lasix 40mg BID Monitor I/O Monitor electrolytes and renal function Mild elevation troponin Mostly demand ischemia Chronic hypoxic respiratory failure on home oxygen History of asthma and COPD and sleep apnea Reports she uses 2L of oxygen during daytime and 4L at nighttime Continue home inhalers and oxygen Type 2 diabetes Hold home p.o. medications Insulin sliding scale HbA1c is 6.8 Atrial fibrillation s/p Watchman device placement Continue home metoprolol History of subclinical hyperthyroidism Continue home methimazole. TSH is 3.679 GERD on Protonix Chronic kidney stage III Presented with creatinine 1.24 Cr is 1.42 today Reports low back pain Reports she was on gabapentin which she forgot about since admission This was confirmed on [facility] records Gabapentin resumed DVT prophylaxis Lovenox. Disposition telemetry. Full code I spent a total of 45 minutes coordinating, documenting and providing care for this patient excluding time spent in performance of separately billed services Admission and Anticipated Discharge Date Admission Date: June 12, 2023 Physical Exam Constitutional: + well hydrated and + obese; no acute distress Eyes: PERRL, conjunctivae normal, anicteric sclerae ENMT: external ear and nose normal, oropharynx normal Respiratory: no respiratory distress On nasal cannula, diminished breath sounds Cardiovascular: Rate/Rhythm: + irregularly irregular S1 S2 Gastrointestinal (Abdomen): normal bowel sounds, soft, nontender, no hepatosplenomegaly Musculoskeletal: Trace pedal edema Neurologic: PERRL, EOMI, accommodation nl, no face palsy, no dysarthria Psychiatric: A+Ox3, euthymic affect Results & Data Results & Data Vital Signs (Past 12 Hours) Vital Signs Temp Pulse Pulse Resp BP BP Pulse Ox 06/14/23 10:54 83 18 94 06/14/23 08:10 36.4 C L 75 18 106/72 93 06/14/23 07:11 76 18 99 06/14/23 04:08 36.6 C 82 16 110/65 95 06/13/23 23:47 36.5 C 85 16 107/65 95 O2 Del Method O2 Flow Rate 06/14/23 10:54 Nasal Cannula 2 06/14/23 08:10 Nasal Cannula 2 06/14/23 07:11 Nasal Cannula 4 06/14/23 04:08 Nasal Cannula 2 06/13/23 23:47 Nasal Cannula 2 Laboratory Results Abnormal lab results 06/13/23 06/13/23 06/14/23 Range/Units 16:27 20:27 05:58 RBC 3.82 L (4.20-5.40) M/uL Hgb 11.0 L (12.0-16.0) g/dl Hct 34.6 L (37.0-47.0) % MCHC 31.8 L (32.0-36.0) g/dL Chloride (98-107) mmol/L Carbon Dioxide (21-32) mmol/L BUN (6-23) mg/dl Creatinine (0.6-1.2) mg/dl BUN/Creatinine Ratio (10-20) Glucose (70-99(Fasting)) mg/dl POC Glucose 123 H 155 H (70-99) mg/dl 06/14/23 06/14/23 06/14/23 Range/Units 05:58 07:30 11:05 RBC (4.20-5.40) M/uL Hgb (12.0-16.0) g/dl Hct (37.0-47.0) % MCHC (32.0-36.0) g/dL Chloride 94 L (98-107) mmol/L Carbon Dioxide 42 H* (21-32) mmol/L BUN 39 H (6-23) mg/dl Creatinine 1.42 H (0.6-1.2) mg/dl BUN/Creatinine Ratio 27.5 H (10-20) Glucose 131 H (70-99(Fasting)) mg/dl POC Glucose 137 H 152 H (70-99) mg/dl
[2023-06-14] MEDS: oxyCODONE HCL IR 5 MG TAB (IMMEDIATE RELEASE) PO PRN ×2 (14:29→22:38)
[2023-06-14] MEDS: GABAPENTIN 100 MG CAP PO SCH ×2 (14:31→20:13)
--- NOTE | 2023-06-14 17:17 | Cardiology Progress Note ---
Date of Service June 14, 2023 Assessment & Plan (1) Acute on chronic systolic (congestive) heart failure: (2) Chronic respiratory failure with hypoxia and hypercapnia: (3) Permanent atrial fibrillation: Plan 82 year old female with chronic respiratory failure admitted for progressive shortness of breath and fluid retention. Carries a history of chronic systolic HF with an EF of ~45%. Echocardiogram performed 06/12/2023 revealed moderate global hypokinesis of the left ventricle, LV ejection fraction in the range of 30-35% (worse than previous baseline), severe left atrial enlargement At least mild aortic stenosis Mild to moderate mitral vegetation Mild to moderate tricuspid regurgitation Acute on chronic HFrEF: Remains hypervolemic on exam, but responding to diuretic therapy. Continue diuresis with IV Lasix 40 mg BID (normally maintained on PO Lasix 40 mg BID) Continue Aldactone 12.5 mg MWF Trend BMP, potassium goal of 4.0 and mag goal of 2.0 Permanent Atrial Fibrillation: Ventricular rates controlled- continue metoprolol succinate 12.5 mg daily [id number] score of 5 (age 1, female, CHF, hypertension), no AC s/p Watchman implant 11/2019 Admission and Anticipated Discharge Date Admission Date: June 12, 2023 Subjective Patient seen in cardiology follow-up. She notes that she had is urinating more on her current regimen. Still has ongoing dyspnea subjectively. Telemetry reveals atrial fibrillation in the 70s. Physical Exam Constitutional: WD/WN, vitals as above no acute distress Eyes: PERRL, conjunctivae normal, anicteric sclerae Neck: normal visual inspection and trachea midline Respiratory: no labored breathing Auscultation: + rales; no rhonchi and no wheezes Cardiovascular: Rate/Rhythm: regular rate and + irregularly irregular Heart Sounds: normal S1 and normal S2 Vessels: + JVD Extremities: + edema (1+ BLLE pitting edema) Gastrointestinal (Abdomen): normal bowel sounds, soft, nontender, no hepatosplenomegaly Skin: no rashes, warm and dry Psychiatric: A+Ox3, euthymic affect Results & Data Vital Signs (Past 12 Hours) Vital Signs Temp Pulse Pulse Resp BP Pulse Ox O2 Del Method 06/14/23 14:45 78 18 93 Nasal Cannula 06/14/23 11:56 36.7 C 90 20 104/69 93 Nasal Cannula 06/14/23 11:11 Nasal Cannula 06/14/23 10:54 83 18 94 Nasal Cannula 06/14/23 08:10 36.4 C L 75 18 106/72 93 Nasal Cannula 06/14/23 07:11 76 18 99 Nasal Cannula O2 Flow Rate 06/14/23 14:45 2 06/14/23 11:56 2 06/14/23 11:11 3 06/14/23 10:54 2 06/14/23 08:10 2 06/14/23 07:11 4 Laboratory Results CBC 06/14/23 Range/Units 05:58 WBC 9.13 (4.8-10.8) K/ul RBC 3.82 L (4.20-5.40) M/uL Hgb 11.0 L (12.0-16.0) g/dl Hct 34.6 L (37.0-47.0) % Plt Count 252 (130-400) K/uL Comprehensive Metabolic Panel 06/14/23 Range/Units 05:58 Sodium 140 (136-145) mmol/L Potassium 4.3 (3.5-5.1) mmol/L Chloride 94 L (98-107) mmol/L Carbon Dioxide 42 H* (21-32) mmol/L BUN 39 H (6-23) mg/dl Creatinine 1.42 H (0.6-1.2) mg/dl Glucose 131 H (70-99(Fasting)) mg/dl Calcium 9.5 (8.6-10.3) mg/dl Intake and Output 06/14/23 06/14/23 06/14/23 06:59 14:59 22:59 Intake Total 350 / 1510 Output Total 2099 760 / 760 Balance -350 / -590 -760 / -760 Intake: Oral 350 / 1310 Output: Urine Amount (Catheter) 2099 760 / 760 External 2099 760 / 760 Other: # Unmeasured Voids 1 Weight 108.5 kg Weight Measurement Method Built in [facility]
[2023-06-14] MEDS: BIMATOPROST 0.01% OP SOLN 2.5 ML BTL OP SCH (20:12)
[2023-06-14] MEDS: FERROUS SULFATE 325 MG TAB PO SCH (20:13)
[2023-06-14] MEDS: POTASSIUM CHLORIDE CRTAB 20 MEQ TABCR PO SCH (20:13)
[2023-06-14] MEDS ORDERED: HYDROmorphone INJ 0.5 MG/0.5 ML SYR IV STA (23:00)
[2023-06-15] MEDS: ACETAMINOPHEN 325 MG TAB PO SCH ×4 (04:03→17:31)
[2023-06-15 06:59] LABS: Hematocrit (blood only) 34.7 % (37.0-47.0); Hemoglobin 10.9 g/dl (12.0-16.0); Mean Corpuscular Hemoglobin 28.8 pg (25.0-34.0); Mean Corpuscular Hgb Conc 31.4 g/dL (32.0-36.0); Mean Corpuscular Volume 91.6 fL (80.0-100.0); Mean Platelet Volume 10.5 fL (9.4-12.4); Platelet Count 252 K/uL (130-400); RDW Coefficient of Variation 14.2 % (11.5-14.5); RDW Standard Deviation 47.2 fL (36.4-46.3); Red Blood Count 3.79 M/uL (4.20-5.40); White Blood Count 9.59 K/ul (4.8-10.8)
[2023-06-15] MEDS: Ipratropium HFA Inhaler (Combivent Respimat P&T Subs) INH SCH ×4 (07:05→19:21)
[2023-06-15] MEDS: Albuterol HFA 8 GM Inhaler (Combivent Respimat P&T Subs) INH SCH ×4 (07:05→19:22)
[2023-06-15 08:15] LABS: BUN Creatinine Ratio 27.3 (10-20); Calcium 9.3 mg/dl (8.6-10.3); Creatinine Clr Calc Pharmacy 36.5 ml/min; Est GFR (African American) 40.2 ml/min; Est GFR (Non-African American) 34.7 ml/min; Magnesium 1.9 mg/dl (1.7-2.4); Phosphorus 3.8 mg/dl (2.5-4.9); Potassium 4.2 mmol/L (3.5-5.1)
[2023-06-15] MEDS: ISOSORBIDE DINITRATE 10 MG TAB PO SCH ×2 (08:15→11:54)
[2023-06-15] MEDS: SERTRALINE HCL 50 MG TABLET PO SCH (08:15)
[2023-06-15] MEDS: methIMAzole 5 MG TABLET PO SCH (08:15)
[2023-06-15] MEDS: CHOLECALCIFEROL 1,000 UNITS 25 MCG TAB PO SCH (08:16)
[2023-06-15] MEDS: DICYCLOMINE HCL 20 MG TAB PO SCH (08:16)
[2023-06-15] MEDS: METOPROLOL SUCC 25MG EXT REL TAB PO SCH (08:16)
[2023-06-15] MEDS: LIDOCAINE 5% 1 PATCH TD SCH (08:17)
[2023-06-15] MEDS: ASPIRIN 81 MG ECTAB PO SCH (08:17)
[2023-06-15] MEDS: PANTOprazole 40 MG TAB PO SCH (08:17)
[2023-06-15] MEDS: DORZOLAMIDE HCL 2% OPH SOLN 10 ML BTL OP SCH ×2 (08:17→21:27)
[2023-06-15] MEDS: FUROSEMIDE 40 MG/4 ML VIAL IV SCH ×2 (08:18→18:30)
[2023-06-15] MEDS: GABAPENTIN 100 MG CAP PO SCH ×3 (08:18→21:28)
[2023-06-15] MEDS: ATORVASTATIN 40 MG TAB PO SCH (08:18)
[2023-06-15] MEDS: UMECLIDINIUM BROMIDE 62.5MCG/BLISTER 7 PUFFS/INHALER INH SCH (08:20)
[2023-06-15] MEDS: ENOXAPARIN INJ 40 MG/0.4 ML SYR SQ SCH ×2 (08:20→21:27)
[2023-06-15] MEDS: oxyCODONE HCL IR 5 MG TAB (IMMEDIATE RELEASE) PO PRN ×2 (08:23→17:30)
[2023-06-15] MEDS: INSULIN ASPART PER UNIT CHARGE SC SCH ×4 (08:53→21:29)
--- NOTE | 2023-06-15 09:57 | Hospitalist Progress Note ---
Date of Service June 15, 2023 Assessment & Plan (1) Acute on chronic systolic (congestive) heart failure: Plan: 82-year-old female with past medical history significant for type 2 diabetes chronic hypoxemic respiratory failure on home oxygen, hyperlipidemia, espinosa bclinical hyperthyroidism, asthma, COPD, allergic rhinitis, sleep apnea, chronic systolic CHF, pulmonary hypertension, hypertension, paroxysmal atrial fibrillation s/p Watchman device placement, irritable bowel syndrome with constipation, morbid obesity, GERD, gastroparesis, history of ischemic colitis, chronic kidney stage III, UTI with ESBL, generalized osteoarthritis, history of elevated plasma metanephrines, general generalized anxiety disorder, depression presents with shortness of breath and found to have acute on chronic systolic CHF. Acute on chronic systolic CHF EF 40 to 45% on echo done in November 2022. And also severe mitral regurgitation. TTE on 06/12/23 showed worsened EF 30-35, severely dil LA,mild to mod MR, mild to mod TR, RVSP 30-40, mod global hypokinesis of LV Cardiology eval and recs noted Currently on IV lasix 40mg BID Monitor I/O Monitor electrolytes and renal function Mild elevation troponin Mostly demand ischemia Chronic hypoxic respiratory failure on home oxygen History of asthma and COPD and sleep apnea Reports she uses 2L of oxygen during daytime and 4L at nighttime Continue home inhalers and oxygen Type 2 diabetes Hold home p.o. medications Insulin sliding scale HbA1c is 6.8 Atrial fibrillation s/p Watchman device placement Continue home metoprolol History of subclinical hyperthyroidism Continue home methimazole. TSH is 3.679 GERD on Protonix Chronic kidney stage III Presented with creatinine 1.24 Cr is 1.39 today Reports low back pain Continue lidocaine patch Continue gabapentin Continue scheduled tylenol. DVT prophylaxis Lovenox. Disposition telemetry. Full code I spent a total of 35 minutes coordinating, documenting and providing care for this patient excluding time spent in performance of separately billed services Admission and Anticipated Discharge Date Admission Date: June 12, 2023 Subjective Patient seen and examined Continues to report SOB with exertion and chronic back pain No new complaints Physical Exam Constitutional: + well hydrated and + obese; no acute distress Eyes: PERRL, conjunctivae normal, anicteric sclerae ENMT: external ear and nose normal, oropharynx normal Respiratory: no respiratory distress Diminished breath sound, on nasal cannula Cardiovascular: Rate/Rhythm: + irregularly irregular S1 S2 Gastrointestinal (Abdomen): normal bowel sounds, soft, nontender, no hepatosplenomegaly Musculoskeletal: +pedal edema Neurologic: PERRL, EOMI, accommodation nl, no face palsy, no dysarthria Psychiatric: A+Ox3, euthymic affect Results & Data Results & Data Vital Signs (Past 12 Hours) Vital Signs Temp Pulse Pulse Resp BP Pulse Ox O2 Del Method 06/15/23 07:30 36.5 C 89 17 117/82 91 Nasal Cannula 06/15/23 07:07 94 H 18 99 Nasal Cannula 06/15/23 03:00 36.3 C L 97 H 14 128/83 96 Nasal Cannula 06/14/23 22:39 36.6 C 85 16 106/72 95 Nasal Cannula O2 Flow Rate 06/15/23 07:30 3 06/15/23 07:07 4 06/15/23 03:00 06/14/23 22:39 3 Laboratory Results Abnormal lab results 06/14/23 06/14/23 06/15/23 Range/Units 16:43 19:32 05:51 RBC (4.20-5.40) M/uL Hgb (12.0-16.0) g/dl Hct (37.0-47.0) % MCHC (32.0-36.0) g/dL RDW Std Deviation (36.4-46.3) fL Chloride 95 L (98-107) mmol/L Carbon Dioxide 42 H* (21-32) mmol/L BUN 38 H (6-23) mg/dl Creatinine 1.39 H (0.6-1.2) mg/dl BUN/Creatinine Ratio 27.3 H (10-20) Glucose 133 H (70-99(Fasting)) mg/dl POC Glucose 159 H 214 H (70-99) mg/dl 06/15/23 06/15/23 06/15/23 Range/Units 05:51 07:24 11:18 RBC 3.79 L (4.20-5.40) M/uL Hgb 10.9 L (12.0-16.0) g/dl Hct 34.7 L (37.0-47.0) % MCHC 31.4 L (32.0-36.0) g/dL RDW Std Deviation 47.2 H (36.4-46.3) fL Chloride (98-107) mmol/L Carbon Dioxide (21-32) mmol/L BUN (6-23) mg/dl Creatinine (0.6-1.2) mg/dl BUN/Creatinine Ratio (10-20) Glucose (70-99(Fasting)) mg/dl POC Glucose 142 H 166 H (70-99) mg/dl
--- NOTE | 2023-06-15 16:48 | Cardiology Progress Note ---
Date of Service June 15, 2023 Assessment & Plan (1) Acute on chronic systolic (congestive) heart failure: (2) Chronic respiratory failure with hypoxia and hypercapnia: (3) Permanent atrial fibrillation: Plan 82 year old female with chronic respiratory failure admitted for progressive shortness of breath and fluid retention. Carries a history of chronic systolic HF with an EF of ~45%. Echocardiogram performed 06/12/2023 revealed moderate global hypokinesis of the left ventricle, LV ejection fraction in the range of 30-35% (worse than previous baseline), severe left atrial enlargement At least mild aortic stenosis Mild to moderate mitral vegetation Mild to moderate tricuspid regurgitation Acute on chronic HFrEF: Remains hypervolemic on exam, but responding to diuretic therapy. Continue diuresis with IV Lasix 40 mg BID (normally maintained on PO Lasix 40 mg BID) Continue Aldactone 12.5 mg MWF Trend BMP, potassium goal of 4.0 and mag goal of 2.0 Permanent Atrial Fibrillation: Ventricular rates controlled- continue metoprolol succinate 12.5 mg daily [id number] score of 5 (age 1, female, CHF, hypertension), no AC s/p Watchman implant 11/2019 Admission and Anticipated Discharge Date Admission Date: June 12, 2023 Subjective Patient seen in cardiology follow-up. Subjectively she feels like she is improving. Still notes shortness of breath with walking short distances to the restroom. Telemetry reveals atrial fibrillation in the 70s. Her daughter, Stephani is at the bedside. Physical Exam Constitutional: WD/WN, vitals as above no acute distress Eyes: PERRL, conjunctivae normal, anicteric sclerae Neck: normal visual inspection and trachea midline Respiratory: no labored breathing Auscultation: + rales; no rhonchi and no wheezes Cardiovascular: Rate/Rhythm: regular rate and + irregularly irregular Heart Sounds: normal S1 and normal S2 Vessels: + JVD Extremities: + edema (1+ BLLE pitting edema) Gastrointestinal (Abdomen): normal bowel sounds, soft, nontender, no hepatosplenomegaly Skin: no rashes, warm and dry Psychiatric: A+Ox3, euthymic affect Results & Data Vital Signs (Past 12 Hours) Vital Signs Temp Pulse Pulse Resp BP BP Pulse Ox 06/15/23 14:42 70 16 93 06/15/23 11:56 36.8 C 93 H 17 135/72 93 06/15/23 11:06 85 16 94 06/15/23 10:22 06/15/23 07:30 36.5 C 89 17 117/82 91 06/15/23 07:07 94 H 18 99 O2 Del Method O2 Flow Rate 06/15/23 14:42 Nasal Cannula 2 06/15/23 11:56 Nasal Cannula 2 06/15/23 11:06 Nasal Cannula 2 06/15/23 10:22 Nasal Cannula 2 06/15/23 07:30 Nasal Cannula 3 06/15/23 07:07 Nasal Cannula 4 Laboratory Results CBC 06/15/23 Range/Units 05:51 WBC 9.59 (4.8-10.8) K/ul RBC 3.79 L (4.20-5.40) M/uL Hgb 10.9 L (12.0-16.0) g/dl Hct 34.7 L (37.0-47.0) % Plt Count 252 (130-400) K/uL Comprehensive Metabolic Panel 06/15/23 Range/Units 05:51 Sodium 140 (136-145) mmol/L Potassium 4.2 (3.5-5.1) mmol/L Chloride 95 L (98-107) mmol/L Carbon Dioxide 42 H* (21-32) mmol/L BUN 38 H (6-23) mg/dl Creatinine 1.39 H (0.6-1.2) mg/dl Glucose 133 H (70-99(Fasting)) mg/dl Calcium 9.3 (8.6-10.3) mg/dl Intake and Output 06/15/23 06/15/23 06/15/23 06:59 14:59 22:59 Output Total 200 / 1261 800 / 800 Balance -200 / -1261 -800 / -800 Output: Urine 800 / 800 Urine Amount (Catheter) 200 / 960 External 200 / 960 Other: Weight 106.6 kg
[2023-06-15] MEDS: BIMATOPROST 0.01% OP SOLN 2.5 ML BTL OP SCH (21:27)
[2023-06-15] MEDS: FERROUS SULFATE 325 MG TAB PO SCH (21:28)
[2023-06-15] MEDS: POTASSIUM CHLORIDE CRTAB 20 MEQ TABCR PO SCH (21:29)
[2023-06-16] MEDS: ACETAMINOPHEN 325 MG TAB PO SCH ×4 (05:41→17:28)
[2023-06-16 06:45] LABS: Hemoglobin 11.2 g/dl (12.0-16.0); Mean Corpuscular Hgb Conc 31.1 g/dL (32.0-36.0); Mean Corpuscular Volume 93.3 fL (80.0-100.0); Mean Platelet Volume 10.2 fL (9.4-12.4); Platelet Count 247 K/uL (130-400); RDW Coefficient of Variation 14.2 % (11.5-14.5); RDW Standard Deviation 47.8 fL (36.4-46.3); Red Blood Count 3.86 M/uL (4.20-5.40); White Blood Count 7.88 K/ul (4.8-10.8)
[2023-06-16 07:12] LABS: BUN Creatinine Ratio 25.4 (10-20); Calcium 9.4 mg/dl (8.6-10.3); Est GFR (African American) 39.2 ml/min; Est GFR (Non-African American) 33.8 ml/min; Phosphorus 4.5 mg/dl (2.5-4.9); Potassium 4.5 mmol/L (3.5-5.1)
[2023-06-16] MEDS: Albuterol HFA 8 GM Inhaler (Combivent Respimat P&T Subs) INH SCH ×4 (07:13→19:02)
[2023-06-16] MEDS: Ipratropium HFA Inhaler (Combivent Respimat P&T Subs) INH SCH ×4 (07:14→19:02)
[2023-06-16] MEDS: INSULIN ASPART PER UNIT CHARGE SC SCH ×4 (08:46→20:36)
[2023-06-16] MEDS: ASPIRIN 81 MG ECTAB PO SCH (08:47)
[2023-06-16] MEDS: CHOLECALCIFEROL 1,000 UNITS 25 MCG TAB PO SCH (08:47)
[2023-06-16] MEDS: methIMAzole 5 MG TABLET PO SCH (08:48)
[2023-06-16] MEDS: ATORVASTATIN 40 MG TAB PO SCH (08:48)
[2023-06-16] MEDS: DICYCLOMINE HCL 20 MG TAB PO SCH (08:48)
[2023-06-16] MEDS: PANTOprazole 40 MG TAB PO SCH (08:48)
[2023-06-16] MEDS: DORZOLAMIDE HCL 2% OPH SOLN 10 ML BTL OP SCH ×2 (08:49→20:37)
[2023-06-16] MEDS: FUROSEMIDE 40 MG/4 ML VIAL IV SCH ×2 (08:50→17:27)
[2023-06-16] MEDS: GABAPENTIN 100 MG CAP PO SCH ×3 (08:50→20:37)
[2023-06-16] MEDS: LIDOCAINE 5% 1 PATCH TD SCH (08:51)
[2023-06-16] MEDS: METOPROLOL SUCC 25MG EXT REL TAB PO SCH (08:51)
[2023-06-16] MEDS: ISOSORBIDE DINITRATE 10 MG TAB PO SCH ×2 (08:53→11:29)
[2023-06-16] MEDS: ENOXAPARIN INJ 40 MG/0.4 ML SYR SQ SCH ×2 (08:54→20:36)
[2023-06-16] MEDS: SPIRONOLACTONE 12.5 MG TAB PO SCH (08:54)
[2023-06-16] MEDS: UMECLIDINIUM BROMIDE 62.5MCG/BLISTER 7 PUFFS/INHALER INH SCH (08:55)
[2023-06-16] MEDS: SERTRALINE HCL 50 MG TABLET PO SCH (09:50)
--- NOTE | 2023-06-16 10:38 | Hospitalist Progress Note ---
Date of Service June 16, 2023 Assessment & Plan (1) Acute on chronic systolic (congestive) heart failure: Plan: 82-year-old female with past medical history significant for type 2 diabetes chronic hypoxemic respiratory failure on home oxygen, hyperlipidemia, espinosa bclinical hyperthyroidism, asthma, COPD, allergic rhinitis, sleep apnea, chronic systolic CHF, pulmonary hypertension, hypertension, paroxysmal atrial fibrillation s/p Watchman device placement, irritable bowel syndrome with constipation, morbid obesity, GERD, gastroparesis, history of ischemic colitis, chronic kidney stage III, UTI with ESBL, generalized osteoarthritis, history of elevated plasma metanephrines, general generalized anxiety disorder, depression presents with shortness of breath and found to have acute on chronic systolic CHF. Acute on chronic systolic CHF EF 40 to 45% on echo done in November 2022. And also severe mitral regurgitation. TTE on 06/12/23 showed worsened EF 30-35, severely dil LA,mild to mod MR, mild to mod TR, RVSP 30-40, mod global hypokinesis of LV Cardiologyon board Currently on IV lasix 40mg BID Monitor I/O Monitor BP. BP running normotensive to mild hypotensive Mild elevation troponin Mostly demand ischemia Chronic hypoxic respiratory failure on home oxygen History of asthma and COPD and sleep apnea Reports she uses 2L of oxygen during daytime and 4L at nighttime Continue home inhalers and oxygen Type 2 diabetes Hold home p.o. medications Insulin sliding scale HbA1c is 6.8 Atrial fibrillation s/p Watchman device placement Continue home metoprolol History of subclinical hyperthyroidism Continue home methimazole. TSH is 3.679 GERD on Protonix Chronic kidney stage III Presented with creatinine 1.24 Cr is 1.42 today Reports low back pain Continue lidocaine patch Continue gabapentin Continue scheduled tylenol. DVT prophylaxis Lovenox. Disposition telemetry. Full code I spent a total of 35 minutes coordinating, documenting and providing care for this patient excluding time spent in performance of separately billed services Admission and Anticipated Discharge Date Admission Date: June 12, 2023 Subjective Patient seen and examined Reports mild improvement in her cough and SOB today Reports chronic low back pain No new complaint Physical Exam Constitutional: + well hydrated and + obese; no acute distress Eyes: PERRL, conjunctivae normal, anicteric sclerae ENMT: external ear and nose normal, oropharynx normal Respiratory: no respiratory distress On nasal cannula Diminished breath sounds Cardiovascular: Rate/Rhythm: + irregularly irregular S1 S2 Gastrointestinal (Abdomen): normal bowel sounds, soft, nontender, no hepatosplenomegaly Musculoskeletal: +pedal edema improved Neurologic: PERRL, EOMI, accommodation nl, no face palsy, no dysarthria Psychiatric: A+Ox3, euthymic affect Results & Data Results & Data Vital Signs (Past 12 Hours) Vital Signs Temp Pulse Pulse Pulse Resp BP Pulse Ox 06/16/23 07:45 36.7 C 88 20 104/74 94 06/16/23 07:26 06/16/23 07:14 91 H 18 92 06/16/23 03:00 36.5 C 79 19 107/72 96 06/16/23 02:07 69 06/15/23 23:00 36.6 C 68 16 114/79 98 O2 Del Method O2 Flow Rate 06/16/23 07:45 Nasal Cannula 2 06/16/23 07:26 Nasal Cannula 06/16/23 07:14 Nasal Cannula 2 06/16/23 03:00 Nasal Cannula 06/16/23 02:07 06/15/23 23:00 Nasal Cannula Laboratory Results Abnormal lab results 06/15/23 06/15/23 06/16/23 Range/Units 16:17 20:22 05:46 RBC 3.86 L (4.20-5.40) M/uL Hgb 11.2 L (12.0-16.0) g/dl Hct 36.0 L (37.0-47.0) % MCHC 31.1 L (32.0-36.0) g/dL RDW Std Deviation 47.8 H (36.4-46.3) fL Chloride (98-107) mmol/L Carbon Dioxide (21-32) mmol/L Anion Gap (3-11) BUN (6-23) mg/dl Creatinine (0.6-1.2) mg/dl BUN/Creatinine Ratio (10-20) Glucose (70-99(Fasting)) mg/dl POC Glucose 188 H 173 H (70-99) mg/dl 06/16/23 06/16/23 06/16/23 Range/Units 05:46 07:17 11:19 RBC (4.20-5.40) M/uL Hgb (12.0-16.0) g/dl Hct (37.0-47.0) % MCHC (32.0-36.0) g/dL RDW Std Deviation (36.4-46.3) fL Chloride 97 L (98-107) mmol/L Carbon Dioxide 43 H* (21-32) mmol/L Anion Gap 2 L (3-11) BUN 36 H (6-23) mg/dl Creatinine 1.42 H (0.6-1.2) mg/dl BUN/Creatinine Ratio 25.4 H (10-20) Glucose 112 H (70-99(Fasting)) mg/dl POC Glucose 130 H 146 H (70-99) mg/dl
--- NOTE | 2023-06-16 12:21 | Cardiology Progress Note ---
Date of Service June 16, 2023 Assessment & Plan (1) Acute on chronic systolic (congestive) heart failure: (2) Chronic respiratory failure with hypoxia and hypercapnia: (3) Permanent atrial fibrillation: Plan Medically complex 82 year old female with chronic respiratory failure admitted for progressive shortness of breath and fluid retention. Carries a history of chronic systolic HF with an EF of ~45%. Hypervolemic on exam. Acute on chronic HFrEF: Remains hypervolemic on exam, but responding to diuretic therapy. Continue diuresis with IV Lasix 40 mg BID (normally maintained on PO Lasix 40 mg BID) Continue Aldactone 12.5 mg MWF CHF EDU Trend BMP, potassium goal of 4.0 and mag goal of 2.0 Permanent Atrial Fibrillation: Ventricular rates controlled- continue metoprolol succinate 12.5 mg daily [id number] score of 5 (age 1, female, CHF, hypertension), no AC s/p watchman implant 11/201906/16/2023 Slowly improving we will continue slow diuresis. Increase activities as tolerated continue oxygen supplement Admission and Anticipated Discharge Date Admission Date: June 12, 2023 Subjective Patient seen and examined, chart, medications, telemetry reviewed. Slowly improving. Slightly less dyspneic lower extremity edema improving. With gradual diuresis. No chest pains, tachypalpitations. Physical Exam Constitutional: WD/WN, vitals as above no acute distress Eyes: PERRL, conjunctivae normal, anicteric sclerae Neck: normal visual inspection and trachea midline Respiratory: + tachypneic; no labored breathing Auscultation: + rales and + bronchovesicular breath sounds; no rhonchi and no wheezes Cardiovascular: Rate/Rhythm: regular rate and + irregularly irregular Heart Sounds: normal S1 and normal S2 Vessels: + JVD Extremities: + edema (1+ BLLE pitting edema) Gastrointestinal (Abdomen): normal bowel sounds, soft, nontender, no hepatosplenomegaly Skin: no rashes, warm and dry Psychiatric: A+Ox3, euthymic affect Results & Data Vital Signs (Past 12 Hours) Vital Signs Temp Pulse Pulse Pulse Resp BP Pulse Ox 06/16/23 11:33 36.6 C 102 H 18 97/53 L 92 06/16/23 11:07 95 H 18 96 06/16/23 10:52 72 06/16/23 07:45 36.7 C 88 20 104/74 94 06/16/23 07:26 06/16/23 07:14 91 H 18 92 06/16/23 03:00 36.5 C 79 19 107/72 96 06/16/23 02:07 69 O2 Del Method O2 Flow Rate 06/16/23 11:33 Nasal Cannula 2 06/16/23 11:07 Nasal Cannula 2 06/16/23 10:52 06/16/23 07:45 Nasal Cannula 2 06/16/23 07:26 Nasal Cannula 06/16/23 07:14 Nasal Cannula 2 06/16/23 03:00 Nasal Cannula 06/16/23 02:07
[2023-06-16] MEDS: SUCRALFATE 1 GM TAB PO PRN ×2 (13:05→15:59)
--- NOTE | 2023-06-16 14:04 | Electrocardiogram Report ---
Test Reason : Blood Pressure : / mmHG Vent. Rate : 097 BPM Atrial Rate : 000 BPM P-R Int : 000 ms QRS Dur : 128 ms QT Int : 362 ms P-R-T Axes : 000 -44 098 degrees QTc Int : 459 ms Atrial fibrillation Left axis deviation Non-specific intra-ventricular conduction block Minimal voltage criteria for LVH, may be normal variant Abnormal ECG When compared with ECG of 18-NOV-2022 06:25, No significant change Confirmed by Trav Brar ([id number]) on 06/16/2023 2:03:33 PM Referred By: REFERRED SELF Confirmed By:Trav Brar
[2023-06-16] MEDS: oxyCODONE HCL IR 5 MG TAB (IMMEDIATE RELEASE) PO PRN (19:35)
[2023-06-16] MEDS: POTASSIUM CHLORIDE CRTAB 20 MEQ TABCR PO SCH (20:37)
[2023-06-16] MEDS: BIMATOPROST 0.01% OP SOLN 2.5 ML BTL OP SCH (20:37)
[2023-06-16] MEDS: FERROUS SULFATE 325 MG TAB PO SCH (20:37)
--- NOTE | 2023-06-16 22:17 | Electrocardiogram Report ---
Test Reason : Blood Pressure : / mmHG Vent. Rate : 089 BPM Atrial Rate : 091 BPM P-R Int : 000 ms QRS Dur : 132 ms QT Int : 396 ms P-R-T Axes : 000 -43 044 degrees QTc Int : 481 ms Atrial fibrillation Left axis deviation Non-specific intra-ventricular conduction block Nonspecific T wave abnormality Abnormal ECG When compared with ECG of 11-JUN-2023 19:07, Nonspecific T wave abnormality, worse in Anterior leads Nonspecific T wave abnormality has replaced inverted T waves in Lateral leads Confirmed by Trav Brar ([id number]) on 06/16/2023 10:17:33 PM Referred By: REFERRED SELF Confirmed By:Trav Brar
[2023-06-17] MEDS: ACETAMINOPHEN 325 MG TAB PO SCH ×5 (00:09→23:08)
[2023-06-17] MEDS ORDERED: HYDROmorphone INJ 0.5 MG/0.5 ML SYR IV STA (01:45)
[2023-06-17 06:34] LABS: Hematocrit (blood only) 34.4 % (37.0-47.0); Hemoglobin 10.4 g/dl (12.0-16.0); Mean Corpuscular Hemoglobin 28.7 pg (25.0-34.0); Mean Corpuscular Hgb Conc 30.2 g/dL (32.0-36.0); Mean Platelet Volume 10.1 fL (9.4-12.4); Platelet Count 232 K/uL (130-400); RDW Coefficient of Variation 14.1 % (11.5-14.5); RDW Standard Deviation 48.4 fL (36.4-46.3); Red Blood Count 3.62 M/uL (4.20-5.40); White Blood Count 9.17 K/ul (4.8-10.8)
[2023-06-17 06:57] LABS: BUN Creatinine Ratio 24.1 (10-20); Calcium 9.1 mg/dl (8.6-10.3); Creatinine Clr Calc Pharmacy 31.5 ml/min; Est GFR (African American) 33.4 ml/min; Est GFR (Non-African American) 28.8 ml/min; Magnesium 1.9 mg/dl (1.7-2.4); Phosphorus 3.6 mg/dl (2.5-4.9); Potassium 4.7 mmol/L (3.5-5.1)
[2023-06-17] MEDS: Albuterol HFA 8 GM Inhaler (Combivent Respimat P&T Subs) INH SCH ×4 (07:11→19:19)
[2023-06-17] MEDS: Ipratropium HFA Inhaler (Combivent Respimat P&T Subs) INH SCH ×4 (07:11→19:19)
[2023-06-17] MEDS: UMECLIDINIUM BROMIDE 62.5MCG/BLISTER 7 PUFFS/INHALER INH SCH (08:32)
[2023-06-17] MEDS: oxyCODONE HCL IR 5 MG TAB (IMMEDIATE RELEASE) PO PRN (08:35)
[2023-06-17] MEDS: DICYCLOMINE HCL 20 MG TAB PO SCH (08:36)
[2023-06-17] MEDS: METOPROLOL SUCC 25MG EXT REL TAB PO SCH (08:36)
[2023-06-17] MEDS: ASPIRIN 81 MG ECTAB PO SCH (08:37)
[2023-06-17] MEDS: SERTRALINE HCL 50 MG TABLET PO SCH (08:37)
[2023-06-17] MEDS: ATORVASTATIN 40 MG TAB PO SCH (08:38)
[2023-06-17] MEDS: methIMAzole 5 MG TABLET PO SCH (08:38)
[2023-06-17] MEDS: PANTOprazole 40 MG TAB PO SCH (08:39)
[2023-06-17] MEDS: ISOSORBIDE DINITRATE 10 MG TAB PO SCH ×2 (08:39→12:05)
[2023-06-17] MEDS: CHOLECALCIFEROL 1,000 UNITS 25 MCG TAB PO SCH (08:39)
[2023-06-17] MEDS: ENOXAPARIN INJ 40 MG/0.4 ML SYR SQ SCH ×2 (08:40→20:49)
[2023-06-17] MEDS: GABAPENTIN 100 MG CAP PO SCH ×3 (08:41→20:48)
[2023-06-17] MEDS: FUROSEMIDE 40 MG/4 ML VIAL IV SCH (08:41)
[2023-06-17] MEDS: DORZOLAMIDE HCL 2% OPH SOLN 10 ML BTL OP SCH ×2 (08:42→20:49)
[2023-06-17] MEDS: LIDOCAINE 5% 1 PATCH TD SCH (08:42)
[2023-06-17] MEDS: INSULIN ASPART PER UNIT CHARGE SC SCH ×4 (09:52→20:49)
--- NOTE | 2023-06-17 10:48 | Hospitalist Progress Note ---
Date of Service June 17, 2023 Assessment & Plan (1) Acute on chronic systolic (congestive) heart failure: Plan: 82-year-old female with past medical history significant for type 2 diabetes chronic hypoxemic respiratory failure on home oxygen, hyperlipidemia, espinosa bclinical hyperthyroidism, asthma, COPD, allergic rhinitis, sleep apnea, chronic systolic CHF, pulmonary hypertension, hypertension, paroxysmal atrial fibrillation s/p Watchman device placement, irritable bowel syndrome with constipation, morbid obesity, GERD, gastroparesis, history of ischemic colitis, chronic kidney stage III, UTI with ESBL, generalized osteoarthritis, history of elevated plasma metanephrines, general generalized anxiety disorder, depression presents with shortness of breath and found to have acute on chronic systolic CHF. Acute on chronic systolic CHF EF 40 to 45% on echo done in November 2022. And also severe mitral regurgitation. TTE on 06/12/23 showed worsened EF 30-35, severely dil LA,mild to mod MR, mild to mod TR, RVSP 30-40, mod global hypokinesis of LV Currently on IV lasix 40mg BID Monitor I/O With bump in Cr today, lasix stopped for now. Will reassess with AMLAB tomorrow Monitor BP. BP running normotensive to mild hypotensive Mild elevation troponin Mostly demand ischemia Chronic hypoxic respiratory failure on home oxygen History of asthma and COPD and sleep apnea Reports she uses 2L of oxygen during daytime and 4L at nighttime Continue home inhalers and oxygen Type 2 diabetes Hold home p.o. medications Insulin sliding scale HbA1c is 6.8 Atrial fibrillation s/p Watchman device placement Continue home metoprolol History of subclinical hyperthyroidism Continue home methimazole. TSH is 3.679 GERD on Protonix Chronic kidney stage III Presented with creatinine 1.24 Cr is 1.62 today Reports low back pain Continue lidocaine patch Continue gabapentin Continue scheduled tylenol. DVT prophylaxis Lovenox. Disposition telemetry. Full code I spent a total of 45 minutes coordinating, documenting and providing care for this patient excluding time spent in performance of separately billed services Admission and Anticipated Discharge Date Admission Date: June 12, 2023 Subjective Patient seen and examined Reports shortness of breath is improving Denied cough this morning Reports chronic low back pain No new complaint Physical Exam Constitutional: + well hydrated and + obese; no acute distress Eyes: PERRL, conjunctivae normal, anicteric sclerae ENMT: external ear and nose normal, oropharynx normal Respiratory: no respiratory distress On nasal cannula, diminished breath sounds Cardiovascular: Rate/Rhythm: + irregularly irregular S1 S2 Gastrointestinal (Abdomen): normal bowel sounds, soft, nontender, no hepatosplenomegaly Musculoskeletal: No pedale kassandra Neurologic: PERRL, EOMI, accommodation nl, no face palsy, no dysarthria Psychiatric: A+Ox3, euthymic affect Results & Data Results & Data Vital Signs (Past 12 Hours) Vital Signs Temp Pulse Pulse Resp BP Pulse Ox O2 Del Method 06/17/23 07:43 36.4 C L 72 20 97/54 L 96 Nasal Cannula 06/17/23 07:11 83 17 94 Nasal Cannula 06/17/23 03:00 36.6 C 82 14 116/70 98 Nasal Cannula 06/16/23 23:00 36.8 C 82 16 112/76 96 Nasal Cannula 06/16/23 23:01 85 O2 Flow Rate 06/17/23 07:43 2 06/17/23 07:11 4 06/17/23 03:00 06/16/23 23:00 06/16/23 23:01 Laboratory Results Abnormal lab results 06/16/23 06/16/23 06/17/23 Range/Units 16:29 20:08 05:35 RBC 3.62 L (4.20-5.40) M/uL Hgb 10.4 L (12.0-16.0) g/dl Hct 34.4 L (37.0-47.0) % MCHC 30.2 L (32.0-36.0) g/dL RDW Std Deviation 48.4 H (36.4-46.3) fL Chloride (98-107) mmol/L Carbon Dioxide (21-32) mmol/L Anion Gap (3-11) BUN (6-23) mg/dl Creatinine (0.6-1.2) mg/dl BUN/Creatinine Ratio (10-20) Glucose (70-99(Fasting)) mg/dl POC Glucose 141 H 192 H (70-99) mg/dl 06/17/23 06/17/23 06/17/23 Range/Units 05:35 07:21 11:05 RBC (4.20-5.40) M/uL Hgb (12.0-16.0) g/dl Hct (37.0-47.0) % MCHC (32.0-36.0) g/dL RDW Std Deviation (36.4-46.3) fL Chloride 95 L (98-107) mmol/L Carbon Dioxide 44 H* (21-32) mmol/L Anion Gap 1 L (3-11) BUN 39 H (6-23) mg/dl Creatinine 1.62 H (0.6-1.2) mg/dl BUN/Creatinine Ratio 24.1 H (10-20) Glucose 157 H (70-99(Fasting)) mg/dl POC Glucose 150 H 157 H (70-99) mg/dl
--- NOTE | 2023-06-17 12:18 | Cardiology Progress Note ---
Date of Service June 17, 2023 Assessment & Plan (1) Acute on chronic systolic (congestive) heart failure: (2) Chronic respiratory failure with hypoxia and hypercapnia: (3) Permanent atrial fibrillation: Plan Medically complex 82 year old female with chronic respiratory failure admitted for progressive shortness of breath and fluid retention. Carries a history of chronic systolic HF with an EF of ~45%. Acute on chronic HFrEF: Remains hypervolemic on exam, but responding to diuretic therapy. Continue diuresis with IV Lasix 40 mg BID (normally maintained on PO Lasix 40 mg BID) Continue Aldactone 12.5 mg MWF Trend BMP, potassium goal of 4.0 and mag goal of 2.0 Daily weight Monitor I+O's Slight rise in creatinine. Permanent Atrial Fibrillation: Ventricular rates controlled- continue metoprolol succinate 12.5 mg daily [id number] score of 5 (age 1, female, CHF, hypertension), no AC s/p watchman implant 11/2019 recommend PT/OT evaluation. Consider rehab. Patient reports chronic supplemental O2 with 2 L during day and 4 L at night. Approaching baseline. Case discussed with Dr. Jama I spent a total of 30 minutes on the date of service in preparation, delivery, and documentation of the care provided to this patient, excluding any time spent in the performance of separately billed services. Cristiane Murray PA-C Department of Cardiology, [facility] This chart was completed in part utilizing Speech Voice Recognition Software. Grammatical errors, random word insertions, pronoun errors, and incomplete sentences are an occasional consequence of this system due to software limitations, ambient noise, and hardware issues. Any formal questions or concerns about the content, text, or information contained within the body of this dictation should be directly addressed to the provider for clarification. Admission and Anticipated Discharge Date Admission Date: June 12, 2023 Supervising Physician Co-Signing Physician Notes Supervising Physician Attestation: I have personally performed a history and physical examination on the patient. I agree with the physician hygiene assistant's findings and plan as documented with the following additions. Subjective: Patient feeling subjectively improved. Exam: Cardiovascular: Irregular rhythm, no murmurs, edema improving Data: CO2 on chemistry panel has trended up to 44, creatinine up to 1.62 Assessment and Plan: Acute on chronic heart failure with preserved ejection fraction -Hold diuretic for now. Has not was kidney function acceptable, transition to oral tomorrow. -Patient is noted as a coagulation status post percutaneous left atrial appendage occlusion device(Watchman device) placed in 2019. DVT prophylaxis: Subcutaneous Lovenox I spent a total of 20 minutes on the date of service in preparation, delivery, and documentation of the care provided to this patient, excluding any time spent in the performance of separately billed services. Steven Jama, DO Subjective Patient resting in bed comfortably. Reports her SOB has slowly improved each day. Edema also improved. No chest pain. No dizziness. Review of Systems Review of Systems: All systems reviewed & are unremarkable except as noted in HPI & below Physical Exam Constitutional: WD/WN, vitals as above no acute distress Eyes: PERRL, conjunctivae normal, anicteric sclerae Neck: normal visual inspection and trachea midline Respiratory: normal respiratory effort; no labored breathing Auscultation: + rales and + wheezes; no rhonchi Cardiovascular: Rate/Rhythm: regular rate and + irregularly irregular Heart Sounds: normal S1 and normal S2 Vessels: + JVD Extremities: + edema (trace pretibial edema b/l) Gastrointestinal (Abdomen): normal bowel sounds, soft, nontender, no hepatosplenomegaly Skin: no rashes, warm and dry Psychiatric: A+Ox3, euthymic affect Results & Data Vital Signs (Past 12 Hours) Vital Signs Temp Pulse Resp BP Pulse Ox O2 Del Method O2 Flow Rate 06/17/23 11:26 90 18 89 L Nasal Cannula 2 06/17/23 10:51 36.6 C 85 20 91/57 L 93 Room Air 06/17/23 07:43 36.4 C L 72 20 97/54 L 96 Nasal Cannula 2 06/17/23 07:11 83 17 94 Nasal Cannula 4 06/17/23 03:00 36.6 C 82 14 116/70 98 Nasal Cannula Laboratory Results CBC 06/17/23 Range/Units 05:35 WBC 9.17 (4.8-10.8) K/ul RBC 3.62 L (4.20-5.40) M/uL Hgb 10.4 L (12.0-16.0) g/dl Hct 34.4 L (37.0-47.0) % Plt Count 232 (130-400) K/uL Comprehensive Metabolic Panel 09/05/23 Range/Units 05:35 Sodium 140 (136-145) mmol/L Potassium 4.7 (3.5-5.1) mmol/L Chloride 95 L (98-107) mmol/L Carbon Dioxide 44 H* (21-32) mmol/L BUN 39 H (6-23) mg/dl Creatinine 1.62 H (0.6-1.2) mg/dl Glucose 157 H (70-99(Fasting)) mg/dl Calcium 9.1 (8.6-10.3) mg/dl Intake and Output 06/16/23 06/17/23 06/17/23 22:59 06:59 14:59 Intake Total 200 / 1850 Output Total 650 / 3151 1200 / 3151 450 / 450 Balance -450 / -1301 -1200 / -1301 -450 / -450 Intake: Oral 200 / 1850 Output: Urine Amount (Catheter) 650 / 3150 1200 / 3150 450 / 450 External 650 / 3150 1200 / 3150 450 / 450 Other: Weight 107.3 kg Diagnostic Findings Telemetry reviewed: Atrial fibrillation in the 's Medications Administered Current Inpatient Medications Acetaminophen (Acetaminophen 325 Mg Tab) 650 mg PO Q6 ANDREA Stop: 07/14/23 08:59 Last Admin: 06/17/23 12:05 Dose: 650 mg Hydrocodone Bitart/Acetaminophen (Hydrocodone/Acetamophen 5/325mg Tab) 1 tab PO Q4H PRN PRN Reason: Pain Stop: 06/26/23 06:28 Last Admin: 06/14/23 07:51 Dose: 1 tab Albuterol (Albuterol Hfa 8 Gm Inhaler) 2 puffs INH QID PRN PRN Reason: Shortness Of Breath Stop: 07/12/23 06:24 Albuterol (Albuterol 0.083% Nebu Soln 3 Ml Vial) 2.5 mg INH BID PRN; Protocol PRN Reason: .WORSENING ASTHMA Stop: 07/12/23 06:24 Albuterol (Albuterol Hfa 8 Gm Inhaler (Combivent Respimat P&T Subs)) 1 puffs INH QIDR ANDREA; Protocol Stop: 07/12/23 06:59 Last Admin: 06/17/23 11:24 Dose: 1 puffs Aspirin (Aspirin 81 Mg Ectab) 81 mg PO DAILY ANDREA Stop: 07/12/23 08:59 Last Admin: 06/17/23 08:37 Dose: 81 mg Atorvastatin Calcium (Atorvastatin 40 Mg Tab) 40 mg PO QAM ANDREA Stop: 07/12/23 08:59 Last Admin: 06/17/23 08:38 Dose: 40 mg Bimatoprost (Bimatoprost 0.01% Op Soln 2.5 Ml Btl) 1 drops OP HS ANDREA Stop: 07/12/23 20:59 Last Admin: 06/16/23 20:37 Dose: 1 drops Dextrose (Dextrose 50% 50 Ml Syringe) 25 - 50 ml IV UD PRN; Protocol PRN Reason: Hypoglycemia Protocol Stop: 07/12/23 06:24 Dicyclomine HCl (Dicyclomine Hcl 20 Mg Tab) 20 mg PO DAILY ANDREA Stop: 07/12/23 08:59 Last Admin: 06/17/23 08:36 Dose: 20 mg Dorzolamide HCl (Dorzolamide Hcl 2% Oph Soln 10 Ml Btl) 1 drops OP BID ANDREA Stop: 07/12/23 08:59 Last Admin: 06/17/23 08:42 Dose: 1 drops Enoxaparin Sodium (Enoxaparin Inj 40 Mg/0.4 Ml Syr) 40 mg SQ Q12H ANDREA Stop: 07/12/23 08:59 Last Admin: 06/17/23 08:40 Dose: Not Given Ferrous Sulfate (Ferrous Sulfate 325 Mg Tab) 325 mg PO HS ANDREA Stop: 07/12/23 20:59 Last Admin: 06/16/23 20:37 Dose: 325 mg Furosemide (Furosemide 40 Mg/4 Ml Vial) 40 mg IV BID17 ANDREA Stop: 07/12/23 08:59 Last Admin: 06/17/23 08:41 Dose: 40 mg Gabapentin (Gabapentin 100 Mg Cap) 100 mg PO TID ANDREA Stop: 07/14/23 13:59 Last Admin: 06/17/23 08:41 Dose: 100 mg Glucagon (Glucagon For Inj 1 Mg Vial) 1 mg SQ UD PRN; Protocol PRN Reason: Hypoglycemia Protocol Stop: 07/12/23 06:24 Glucose (Glucose 10 Tab/Tube) 4 - 8 tab PO UD PRN; Protocol PRN Reason: Hypoglycemia Treatment Stop: 07/12/23 06:24 Glucose (Glucose 40% Gel 15 Gm Tube) 15 - 30 gm PO UD PRN; Protocol PRN Reason: Hypoglycemia Protocol Stop: 07/12/23 06:24 Insulin Aspart (Insulin Aspart Per Unit Charge) 0 units SC ACHS [facility] Stop: 07/12/23 07:29 Last Admin: 06/17/23 09:52 Dose: Not Given Ipratropium Hooker (Ipratropium Hfa Inhaler (Combivent Respimat P&T Subs)) 1 puffs INH QIDR [facility]; Protocol Stop: 07/12/23 06:59 Last Admin: 06/17/23 11:24 Dose: 1 puffs Isosorbide Dinitrate (Isosorbide Dinitrate 10 Mg Tab) 10 mg PO BID@0700,1200 [facility] Stop: 07/13/23 11:59 Last Admin: 06/17/23 12:05 Dose: 10 mg Lidocaine (Lidocaine 5% 1 Patch) 1 patch TD QAM [facility] Stop: 07/13/23 10:59 Last Admin: 06/17/23 08:42 Dose: 1 patch Methimazole (Methimazole 5 Mg Tablet) 5 mg PO DAILY [facility] Stop: 07/12/23 08:59 Last Admin: 06/17/23 08:38 Dose: 5 mg Metoprolol Succinate (Metoprolol Succ 25mg Ext Rel Tab) 12.5 mg PO DAILY [facility] Stop: 07/12/23 08:59 Last Admin: 06/17/23 08:36 Dose: 12.5 mg Miscellaneous (Carbohydrates For Hypoglycemia ) 15 - 30 gm PO UD PRN PRN Reason: Hypoglycemia Protocol Stop: 07/12/23 06:24 Miscellaneous (Remove Lidoderm Patch) 1 each N/A DAILY@2100 [facility] Stop: 07/13/23 20:59 Last Admin: 06/16/23 21:17 Dose: 1 each Nitroglycerin (Nitroglycerin Sl 0.4 Mg/Tab Tab) 0.4 mg SL Q5M PRN PRN Reason: Chest Pain Stop: 07/12/23 06:24 Oxycodone HCl (Oxycodone Hcl Ir 5 Mg Tab (Immediate Release)) 5 mg PO Q8H PRN PRN Reason: Pain Stop: 06/28/23 08:47 Last Admin: 06/17/23 08:35 Dose: 5 mg Pantoprazole Sodium (Pantoprazole 40 Mg Tab) 40 mg PO DAILY ANDREA Stop: 07/12/23 08:59 Last Admin: 06/17/23 08:39 Dose: 40 mg Polyethylene Glycol (Polyethylene (Miralax) 17 Gm Pack) 17 gm PO DAILY PRN PRN Reason: Constipation Stop: 07/12/23 06:24 Potassium Chloride (Potassium Chloride Crtab 20 Meq Tabcr) 20 meq PO HS ANDREA Stop: 07/12/23 20:59 Last Admin: 06/16/23 20:37 Dose: 20 meq Sertraline HCl (Sertraline Hcl 50 Mg Tablet) 25 mg PO DAILY ANDREA Stop: 07/12/23 08:59 Last Admin: 06/17/23 08:37 Dose: 25 mg Spironolactone (Spironolactone 12.5 Mg Tab) 12.5 mg PO MoWeFr@0900 ANDREA Stop: 07/13/23 08:59 Last Admin: 06/16/23 08:54 Dose: 12.5 mg Sucralfate (Sucralfate 1 Gm Tab) 1 gm PO ACHS PRN PRN Reason: Gi Upset Stop: 07/12/23 06:24 Last Admin: 06/16/23 15:59 Dose: 1 gm Umeclidinium Hooker (Umeclidinium Hooker 62.5mcg/Blister 7 Puffs/Inhaler) 1 puffs INH DAILY ANDREA Stop: 07/12/23 08:59 Last Admin: 06/17/23 08:32 Dose: Not Given Vitamin D (Cholecalciferol 1,000 Units 25 Mcg Tab) 2,000 units PO QAM [facility] Stop: 07/12/23 08:59 Last Admin: 06/17/23 08:39 Dose: 2,000 units
[2023-06-17] MEDS ORDERED: SODIUM CHLORIDE 0.9% 500 ML IV SCH (20:45)
[2023-06-17] MEDS: FERROUS SULFATE 325 MG TAB PO SCH (20:47)
[2023-06-17] MEDS: POTASSIUM CHLORIDE CRTAB 20 MEQ TABCR PO SCH (20:48)
[2023-06-17] MEDS: BIMATOPROST 0.01% OP SOLN 2.5 ML BTL OP SCH (20:49)
--- OUTSIDE RECORDS SUMMARY | 2023-06-18 02:13 | External Medical Summary | Summary of Care ---
Author Name Unknown Organization [facility] Address [address] [place] [address] Phone [phone] Care Team Providers Care Measurement Coordinator Name Role Phone Marcela Pinto MD Primary Care Provider + Reason for Visit * Reason Comments eRx-Medication Refill Encounter Details Date Type Department Care Team Description 06/02/2023 Refill General Internal Medicine [facility] [address] [facility] [place] [address] Marcela Pinto MD [address] [place] [address] Asthma with severity to be determined; COPD, moderate (HCC) Allergies Active Allergy Reactions Severity Noted Date Comments Valsartan 07/10/2010 Enalapril 05/21/2006 Escitalopram Oxalate Nausea/vomiting 10/11/2009 Nauseated Iodinated Contrast Media Nausea/vomiting 2009 IV Contrast Iodine Hives 12/18/2009 IV Contrast [place] Oil-Black Currant-Vit E 07/10/2010 Verapamil 03/21/2004 Bupropion Hcl 10/30/2009 Makes pt sick in the stomach documented as of this encounter (statuses as of 06/03/2023) Medications Medication Sig Dispensed Refills Start Date End Date Status oxygen GAS Use 2 L/min(Oxygen) as directed daily. and 4 L/min at night. 0 Active Promethazine HCl 25 MG Oral Tablet (Phenergan)Indicat ions:Generalized osteoarthritis TAKE 1 TABLET BY MOUTH EVERY 6 HOURS NEEDED FOR NAUSEA 60 Tablet 2 3 Active Alum & Mag Hydroxide-Simeth 400-400-40 MG/5ML Oral Suspension (Mi-Acid II) Take 30 mL by mouth every 4 hours as needed for Indigestion. 355 mL 0 3 Active Acetaminophen 500 MG Oral Tablet (Tylenol) 2 caps every 8 hours for 3 days, then 1 cap every 4 hours as needed for pain. Do not exceed 3000mg acetaminophen (Tylenol) every 24 hours. 1 Tablet 0 3 Active Brinzolamide 1 % Ophthalmic Suspension (Azopt) INSTILL 1 DROP BY OPHTHALMIC ROUTE 2 TIMES EVERY DAY INTO BOTH EYES 10 mL 4 3 Active Aspirin 81 MG Oral Tablet Delayed Release Take 1 Tablet by mouth in the morning. 100 Tablet 0 3 Active Brinzolamide 1 % Ophthalmic Suspension (Azopt) INSTILL 1 DROP BY OPHTHALMIC ROUTE 2 TIMES EVERY DAY INTO BOTH EYES 10 mL 4 3 Active Additional Information Patient not taking.Reported on 12/24/2022 Lumigan 0.01 % Ophthalmic Solution (Bimatoprost) INSTILL 1 DROP BY TOPICAL ROUTE EVERY BEDTIME 3 mL 4 3 Active One Daily Multivitamin Women Oral Tablet one pill each day 30 Tablet 0 3 Active Polyethylene Glycol 3350 17 GM Oral Packet (Miralax) Take 1 Packet by mouth 2 times a day as needed for Constipation. 60 Each 0 3 Active Spiriva Respimat 1.25 MCG/ACT Inhalation Aerosol Solution (Tiotropium [place] Monohydrate) Inhale 2 Puffs by mouth in the morning. 4 g 0 3 Active Ventolin HFA 108 (90 Base) MCG/ACT Inhalation Aerosol Solution Inhale 2 Puffs by mouth in the morning and 2 Puffs before bedtime. 18 g 1 3 Active Atorvastatin Calcium 40 MG Oral Tablet (Lipitor)Indicatio ns:Hyperlipidemia with target LDL less than 100 Take 1 Tablet by mouth in the morning. 90 Tablet 4 3 Active Furosemide 40 MG Oral Tablet (Lasix) Take 1 Tablet by mouth in the morning and 1 Tablet before bedtime. 180 Tablet 3 3 Active Spironolactone 25 MG Oral Tablet (Aldactone) Take 0.5 Tablets by mouth once a day on Friday, Friday, and Friday only. 45 Tablet 3 3 Active Ondansetron 8 MG Oral Tablet Disintegrating (Zofran) DISSOLVE 1 TABLET ON TONGUE EVERY 8 HOURS NEEDED FOR NAUSEA 60 Tablet 5 3 Active Zafirlukast 20 MG Oral Tablet (Accolate)Indicati ons:Asthma with severity to be determined Take 1 Tablet by mouth in the morning. 90 Tablet 3 3 Active Ventolin HFA 108 (90 Base) MCG/ACT Inhalation Aerosol Solution Inhale 2 Puffs by mouth in the morning and 2 Puffs before bedtime. 18 g 0 3 Active Additional Information Patient not taking.Reported on 12/24/2022 Albuterol Sulfate (2.5 MG/3ML) 0.083% Inhalation Nebulization Solution (Proventil)Indicat ions:Asthma with severity to be determined,COPD, moderate (HCC) USE ONE NEBULIZER TREATMENT TWICE A DAY DIRECTED FOR WORSENING ASTHMA. J45.909, J44.9 225 mL 1 3 Active Docusate Sodium 100 MG Oral Capsule (Colace) Take 1 Capsule by mouth in the morning. 90 Capsule 0 3 Active Omeprazole 20 MG Oral Capsule Delayed Release (PriLOSEC)Indicati ons:Ischemic colitis (HCC) Take 1 Capsule by mouth in the morning and 1 Capsule before bedtime. 180 Capsule 3 3 Active MEDICAL INSTRUCTIONS Use as directed. Nursing, PT/OT DX: ABDOMINAL INCISION DEHISENCE, CHF, HTN, COPD, CHRONIC RESPIRATORY FAILURE 1 Each 1 3 Active Ferrous Sulfate 325 (65 Fe) MG Oral Tablet (Feosol) Take 1 Tablet by mouth 2 times a day with morning and evening meals. 60 Tablet 1 3 Active Zoster Vac Recomb Adjuvanted 50 MCG/0.5ML Intramuscular Suspension Reconstituted (Shingrix) Inject 0.5 mL into a large muscle now and repeat dose in 60 to 180 days 1 Each 1 3 Active Dicyclomine HCl 20 MG Oral Tablet (Bentyl)Indication s:Chronic constipation TAKE 1 TABLET BY MOUTH EVERY DAY 90 Tablet 2 3 Active Glimepiride 2 MG Oral Tablet (Amaryl) TAKE 1 TABLET BY MOUTH EVERY DAY WITH BREAKFAST 90 Tablet 1 3 Active Metoprolol Succinate ER 25 MG Oral Tablet Extended Release 24 Hour (Toprol XL) Take one tablet in AM and 1/2 table in the evening. 45 Tablet 6 3 Active Delilahuch Vermichelle In Vitro Strip (Glucose Blood)Indications: Type 2 diabetes mellitus with hemoglobin A1c goal of less than 7.5% ([facility]) Test blood sugar once daily. E11.9 100 Strip 5 3 Active Gabapentin 100 MG Oral Capsule (Neurontin)Indicat ions:Arthralgia of both lower legs One pill once daily for 2 days then twice daily for 2 days then continue one pill three times daily 90 Capsule 5 3 Active Sertraline HCl 25 MG Oral Tablet (Zoloft)Indication s:Major depressive disorder with single episode, in partial remission ([facility]),HECTOR (generalized anxiety disorder) TAKE 1 TABLET BY MOUTH EVERY DAY IN THE MORNING 90 Tablet 1 3 Active Vitamin D3 50 MCG (2000 UT) Oral Capsule TAKE 1 CAPSULE BY MOUTH EVERY MORNING 90 Capsule 3 Active Mag64 64 MG Oral Tablet Delayed Release (magnesium chloride ER) TAKE 1 TABLET BY MOUTH EVERY DAY IN THE MORNING 90 Tablet 1 3 Active HYDROcodone-Acetam inophen 5-325 MG Oral TabletIndications: Generalized osteoarthritis Take 1 Tablet by mouth every 6 hours as needed for Pain, Mild. 120 Tablet 0 3 Active Klor-Con M20 20 MEQ Oral Tablet Extended Release (Potassium Chloride ER)Indications:HTN , goal below 140/90 TAKE 1 TABLET BY MOUTH EVERY DAY 90 Tablet 1 3 Active methIMAzole 5 MG Oral Tablet (Tapazole) TAKE 1 TABLET BY MOUTH EVERY DAY IN THE MORNING 90 Tablet 1 3 Active Ipratropium-Albute rol 20-100 MCG/ACT Inhalation Aerosol Solution (Combivent Respimat)Indicatio ns:Asthma with severity to be determined,COPD, moderate (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, in partial remission 03/27/2023 Full code status 12/05/2022 Presence of Watchman left atrial appenda ge closure device 12/04/2022 Post-op pain 11/25/2022 UTI due to extended-spectrum beta lactamase (ESBL) producing Escherichia coli 11/22/2022 History of colon resection 11/22/2022 Wound dehiscence 11/22/2022 History of 2019 novel coronavirus diseas e (COVID-19) 11/22/2022 Protein-calorie malnutrition 08/15/2022 Diverticulitis of intestine with abscess 07/25/2022 Ischemic colitis 06/27/2022 Asthma, mild persistent 06/27/2022 Gastroparesis 05/13/2022 Type 2 diabetes mellitus wit h stage 3a chronic kidney disease, without long-term current use of insulin 11/19/2021 History of ESBL E. coli infection 2020 Subclinical hyperthyroidism 08/20/2021 Chronic kidney disease, stage 3a 021 Overview: Per CKD protocol Chronic systolic heart failure 1 Pulmonary HTN 03/05/2021 Chronic hypoxemic respiratory failure Paroxysmal atrial fibrillation 1 Morbid obesity with BMI of 40.0-44.9, ad ult 10/19/2019 Gastro-esophageal reflux disease without esophagitis 10/19/2019 COPD, group B, by GOLD 2017 classificati on 07/26/2019 Overview: Per COPD GOLD Classification HECTOR (generalized anxiety disorder) 07/09 Irritable bowel syndrome with constipati on 04/21/2017 Elevated plasma metanephrines 02/20/2017 Type 2 diabetes mellitus with hemoglobin A1c goal of less than 7.5% 02/12/2017 Controlled substance agreement signed Hyperlipidemia with target LDL less than 100 05/15/2016 HTN, goal below 140/90 12/18/2015 Overview: Per HTN Protocol #27. Nocturnal hypoxia 10/02/2011 Overview: 09/27/11 Nocturnal pulse ox 2 LPM -- low 45%, mean 85%, <89% 6:18 hrs, SOREN 18.7 AHP Sleep apnea, obstructive 10/02/2011 Overview: 4 LPM qhs 09/27/11 2 LPM -- low 45%, mean 85%, <89% 6:18 hrs, SOREN 18.7 Refusing CPAP AHP Diverticulitis of colon 07/25/2011 Allergic rhinitis 07/19/2011 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 Asthma with severity to be determined Generalized osteoarthritis documented as of this encounter (statuses as of 06/03/2023) Resolved Problems Problem Noted Date Resolved Date Type 2 diabetes mellitus wit h stage 3a chronic kidney disease 05/21/2021 11/19/2021 Overview: Per CKD protocol Asthma in remission 01/09/2021 03/05/2021 Asthma, mild persistent 01/09/2021 03/05/20 21 Asthma, moderate persistent 01/09/2021 05/2 01/2021 Asthma, severe persistent 01/09/20212020 Intermittent asthma with reliever use up to twic e per week 01/09/2021 03/05/2021 Diabetes mellitus with stage 3 chronic kidney di sease 05/22/2020 05/29/2021 Overview: Per CKD protocol Body mass index (BMI) of 40.0 to 44.9 in adult 1 10/28/2019 Overview: Per Obesity protocol #1 Ischemic colitis 10/01/2017 11/19/2021 Lower GI bleed 04/21/2017 01/05/2019 Hypercalcemia 02/12/2017 11/19/2021 Severe obesity with body mas s index (BMI) of 35.0 to 39.9 with serious comorbidity 05/15/2016 08/28/2018 Overview: ICD-10 update of inactive diagnosis DM (diabetes mellitus), type 2 08/07/2015 0 06/25/2017 Incisional hernia 10/08/2012 02/01/2020 Nausea 09/05/2012 06/25/2017 Overview: ICD-10 update of inactive term HTN, GOAL BELOW 140/80 06/01/2012 6 Overview: Per HTN Protocol #27. Hypoxemia 10/08/2011 10/30/2015 Genetic Sleep Disorder Research Other*[id number] 07/25/2011 05/15/2016 COPD, moderate 07/19/2011 07/28/2019 Overview: Dr Bhatti every 6 months Obesity, morbid (more than 1 00 lbs over ideal weight or BMI > 40) 01/09/2010 08/19/2017 Overview: Per Obesity Taxonomy HTN, GOAL BELOW 130/80 11/08/2009 2 Overview: Modified per HTN Taxonomy. ADVANCE DIRECTIVE INFORMATION 10/30/2009 Overview: No, Advance Directive brochure given to patient. Dyslipidemia, goal LDL below 100 09/19/2009 07/30/2013 Overview: Per Lipid Taxonomy. HTN, GOAL BELOW 140/90 08/18/2009 0 Overview: Modified per HTN Taxonomy. Type 2 diabetes mellitus wit h hemoglobin A1c goal of less than 7.0% 08/10/2009 12/03/2012 Overview: Per Diabetes Taxonomy. ICD-10 update of inactive term Type 2 diabetes mellitus wit h hemoglobin A1c goal of less than 7.0% 08/10/2009 Overview: Per Diabetes Taxonomy. ICD-10 update of inactive term BENIGN HYPERTENSION 08/18/2009 Overview: Modified per HTN Taxonomy. Carpal tunnel syndrome 9 OBESITY, UNSPECIFIED 01/09/2010 Overview: Per Obesity Taxonomy EDEMA dependent, ankles 01/06/20 19 Mixed dyslipidemia 09/19/2009 Overview: Per Lipid Taxonomy. ACEI/ARB contraindicated 021 documented as of this encounter (statuses as of 06/03/2023) Immunizations Name Administration Dates Next Due COVID-19 mRNA, LNP-s, No Pre serve, 2-Dose Series (Pfizer) 08/21/2021,12/22/2020,2020 COVID-19, LNP-s, No Preserve , Tyler-sucrose, Ages 12+ (Pfizer) 04/16/2022 Hepatitis B, 20+ yrs 10/01/2017,04/21/2017,03/20 Pneumococcal Conjugate Vacc, 13 Valent (Prevnar) 03/28/2015 Pneumococcal Conjugate Vacci ne, 20-valent (Pjftlnt31) 04/01/2022 Pneumococcal Polysaccharide PPV23 (Pneumovax) 05/21/2006 Season Influenza, Quad, PF, Adjuvanted, 65+ Yrs, IM (FLUAD) 06/22/2020 Seasonal Influenza, PF, 6 mo ns & Above, IM , (Flulaval) 06/16/2018,07/30/2017 Seasonal Influenza, Quadriva lent Hd (Fluzone Hd) 06/27/2022,07/10/2021 Seasonal Influenza, Quadriva lent, No Preserve, IM 08/15/2016,07/14/2015 Seasonal Influenza, Split, I IV3, With Preserve, Inj 08/04/2014,07/26/2013,06/26/2012,08/06,08/16/2010,07/18/2009,09/01/2008 ,08/12/2006 Seasonal Influenza, Trivalen t, Adjuvanted, 65+ yrs 07/09/2019 TD, Preservative Free 02/28/2009 TDAP (age 10 and older)(Boostrix) 06/04/2018 Varicella Zoster Vaccine (Adult) 07/06/2012 Zoster Vaccine Recombinant (Shingrix) 04/01/2022 documented as of this encounter 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 Tobacco Use Types Packs/Day Years Used Date Smoking Tobacco: Never Smokeless Tobacco: Never Alcohol Use Standard Drinks/Week Comments No 0 (1 standard drink = 0.6 oz pur e alcohol) Food Insecurity Answer Date Recorded Within the past 12 months, y ou worried that your food would run out before you got money to buy more. Never true 10/10/2022 Within the past 12 months, t he food you bought just didn't last and you didn't have money to get more. Never true 10/10/2022 Sex Assigned at Date Recorded Female 04/06/2019 2:19 PM E DT Job Start Date Occupation Industry Not on file Not on file Not on file documented as of this encounter Functional Status Functional Status Response Date of Assess ment Are you deaf or do you have serious difficulty h earing? No 11/23/2022 Are you blind or do you have serious difficulty seeing, even when wearing glasses? No 11/23/2022 Do you have serious difficul ty walking or climbing stairs? (5 years old or older) No 11/23/2022 Do you have difficulty dress ing or bathing? (5 years old or older) No 11/23/2022 Because of a physical, menta l, or emotional condition, do you have difficulty doing errands alone such as visiting a doctor s office or shopping? (15 years old or older) No 11/23/19 Cognitive Status Response Date of Assessm ent Because of a physical, menta l, or emotional condition, do you have serious difficulty concentrating, remembering, or making decisions? (5 years old or older No 11/23/2022 documented as of this encounter Miscellaneous Notes * Telephone Encounter - Gabe Quintana [facility] - 06/03/2023 11:06 AM EDTSigned Prescriptions: Disp Refills Ipratropium-Albuterol 20-100 MCG/ACT Inhal*12 g 1 Sig: TAKE 1 PUFF BY MOUTH 4 TIMES A DAYAuthorizing Provider: MARCELA PINTO User: GABE QUINTANA documented in this encounter Plan of Treatment Upcoming Encounters Date Type Specialty Care Team Description 07/10/2023 Office Visit Internal Medicine Marcela Pinto MD [address] [place] [address] 07/10/2023 Laboratory Laboratory [facility] [address] [place] [address] 07/14/2023 Office Visit Orthopedics Eliezer Gifford, DO [address] [place] [address] 09/18/2023 Office Visit Cardiology Hammad Lopez DO [address] [place] [address] Health Maintenance Due Date Last Done Comments Zoster Vaccines (3 of 3) 05/27/2022 04/01/2022, 06/14 COVID-19 Vaccine (5 - Pfizer risk series) 06/11/2022 04/16/2022, 08/21/2021, 12/22/2020, Additional history exists Influenza Vaccine (FLU shot) (#1) 2023 06/27/2022, 07/10/2021, 06/22/2020, Additional history exists DIABETES-FOOT EXAM 10/10/2023 10/10/2022, 0 11/19/2021, 12/21/2020, Additional history exists Depression Screening, Annual for Pts 12 and Over 10/10/2023 10/10/2022 GFR 10/17/2023 04/16/2023, 03/14, 01/21/2023, Additional history exists HbA1c 10/17/2023 04/16/2023, 11/13, 06/07/2022, Additional history exists O2 ASSESSMENT COMPLETED IN PAST YEAR FOR COPD 11/24/2023 11/24/2022 CKD HGB USE SMARTSET 79094 01/22/202401/21, 01/21/2023, 12/24/2022, Additional history exists DIABETES-EYE EXAM 01/24/2024 01/23/2023, , 03/26/2021, Additional history exists Albumin/Creatinine Ratio 04/02/2024 023, 02/19/2022, 07/09/2019, Additional history exists CKD PHOS USE SMARTSET 41857 04/16/2024 07/0 02/2023, 08/05/2022, 02/19/2022, Additional history exists DXA Scan 08/08/2025 08/08/2020, 04/13, 06/19/2010, Additional history exists DTaP,Tdap,and Td Vaccines (2 - Td or Tdap) 06/04/2028 06/04/2018, 02/28/2009 Hepatitis B Completed 10/01/2017, 04/12, 03/20/2017 COLONOSCOPY-EVERY 3 YRS AGES 18-100 Discontinued 05/08/2020, 02/28/2018, 06/05/2017, Additional history exists Pneumococcal Vaccine: 65+ Years Completed 04/01/2022, 03/28/2015, 05/21/2006 Alpha-1 Antitrypsin Completed 01/21/2023 GARDASIL-HPV IMMUNIZATION SERIES Aged Out No longer eligible based on patient's age to complete this topic MENINGOCOCCAL (MENACTRA/MENVEO) Aged Out No longer eligible based on patient's age to complete this topic documented as of this encounter Medical Devices Not on filedocumented as of this encounter Visit Diagnoses Diagnosis Asthma with severity to be determined COPD, moderate (HCC) Chronic airway obstruction, not elsewhere classified documented in this encounter Advance Directives Latest Code Status on File Code Status Date Activated Date Inactivated Comments Full Code 11/23/2022 7:22 PM 11/29/2022 2:46 PM Question Answer Comments Discussion of Advance Directives occurred with: Not Discussed due to patient's condition Code Status History Code Status Date Activated Date Inactivated Comments Full Code 11/01/2022 1:29 PM 11/11/2022 5:34 PM This order reflects the patients wishes and were consensually agreed upon. Question Answer Comments Discussion of Advance Directives occurred with: Patient Full Code 10/31/2022 5:11 PM 11/01/2022 1:29 PM Question Answer Comments Discussion of Advance Directives occurred with: Not Discussed due to patient's condition Full Code 10/31/2022 5:09 PM 10/31/2022 5:11 PM Question Answer Comments Discussion of Advance Directives occurred with: Not Discussed due to patient's condition Full Code 07/25/2022 12:40 PM 07/29/2022 7:19 PM Th is order reflects the patients wishes and were consensually agreed upon. Question Answer Comments Discussion of Advance Directives occurred with: Patient Care Teams Measurement Coordinator Relationship Specialty Start Date End Date Marcela Pinto MD [address] [place] [address] [place] [address] PCP - General Internal Medicine 08/04/14 documented as of this encounter
--- OUTSIDE RECORDS SUMMARY | 2023-06-18 02:14 | External Medical Summary ---
Author Name Unknown Address Unknown Organization K01:[facility] [place] - [address] [place] [address] Laboratory Report Ordering Provider Test Date Status JOSE A JOHNSON 04/16/2023 11:32:27 Final Observation Date Value Abnormality Reference (Units ) Status HbA1C 04/16/2023 11:32:27 6.6 Above high normal 4. 0-5.6 (%) Final Performing Location [facility] - [address] [facility] [address]
--- OUTSIDE RECORDS SUMMARY | 2023-06-18 02:14 | External Medical Summary | Summary of Care ---
Author Name Unknown Organization [facility] Address [address] [place] [address] Phone [phone] Care Team Providers Care File System Installer Name Role Phone Marcela Pinto MD Primary Care Provider + Reason for Visit * Reason Comments Outpatient Testing Encounter Details Date Type Department Care Team Description 04/16/2023 Laboratory Laboratory [address] [place] [id number] [place] [id number] Chronic kidney disease, unspecified CKD stage; Type 2 diabetes mellitus with hemoglobin A1c goal of less than 7.5% ([facility]); [employer] Other*[id number] Allergies Active Allergy Reactions Severity Noted Date Comments Valsartan 07/10/2010 Enalapril 05/21/2006 Escitalopram Oxalate Nausea/vomiting 10/11/2009 Nauseated Iodinated Contrast Media Nausea/vomiting 2009 IV Contrast Iodine Hives 12/18/2009 IV Contrast [place] Oil-Black Currant-Vit E 07/10/2010 Verapamil 03/21/2004 Bupropion Hcl 10/30/2009 Makes pt sick in the stomach documented as of this encounter (statuses as of 04/16/2023) Medications Medication Sig Dispensed Refills Start Date End Date Status oxygen GAS Use 2 L/min(Oxygen) as directed daily. and 4 L/min at night. 0 Active Promethazine HCl 25 MG Oral Tablet (Phenergan)Indicati ons:Generalized osteoarthritis TAKE 1 TABLET BY MOUTH EVERY 6 HOURS NEEDED FOR NAUSEA 60 Tablet 2 10/18/2022 Active Alum & Mag Hydroxide-Simeth 400-400-40 MG/5ML Oral Suspension (Mi-Acid II) Take 30 mL by mouth every 4 hours as needed for Indigestion. 355 mL 0 11/11/2022 Active Acetaminophen 500 MG Oral Tablet (Tylenol) 2 caps every 8 hours for 3 days, then 1 cap every 4 hours as needed for pain. Do not exceed 3000mg acetaminophen (Tylenol) every 24 hours. 1 Tablet 0 11/27/2022 Active Brinzolamide 1 % Ophthalmic Suspension (Azopt) INSTILL 1 DROP BY OPHTHALMIC ROUTE 2 TIMES EVERY DAY INTO BOTH EYES 10 mL 4 12/11/2022 Active Aspirin 81 MG Oral Tablet Delayed Release Take 1 Tablet by mouth in the morning. 100 Tablet 0 12/11/2022 Active Brinzolamide 1 % Ophthalmic Suspension (Azopt) INSTILL 1 DROP BY OPHTHALMIC ROUTE 2 TIMES EVERY DAY INTO BOTH EYES 10 mL 4 12/11/2022 Active Additional Information Patient not taking.Reported on 12/24/2022 Lumigan 0.01 % Ophthalmic Solution (Bimatoprost) INSTILL 1 DROP BY TOPICAL ROUTE EVERY BEDTIME 3 mL 4 12/11/2022 Active One Daily Multivitamin Women Oral Tablet one pill each day 30 Tablet 0 12/11/2022 Active Polyethylene Glycol 3350 17 GM Oral Packet (Miralax) Take 1 Packet by mouth 2 times a day as needed for Constipation. 60 Each 0 12/11/2022 Active Spiriva Respimat 1.25 MCG/ACT Inhalation Aerosol Solution (Tiotropium [place] Monohydrate) Inhale 2 Puffs by mouth in the morning. 4 g 0 12/11/2022 Active Ventolin HFA 108 (90 Base) MCG/ACT Inhalation Aerosol Solution Inhale 2 Puffs by mouth in the morning and 2 Puffs before bedtime. 18 g 1 12/11/2022 Active Atorvastatin Calcium 40 MG Oral Tablet (Lipitor)Indication s:Hyperlipidemia with target LDL less than 100 Take 1 Tablet by mouth in the morning. 90 Tablet 4 12/11/2022 Active Furosemide 40 MG Oral Tablet (Lasix) Take 1 Tablet by mouth in the morning and 1 Tablet before bedtime. 180 Tablet 3 12/11/2022 Active Spironolactone 25 MG Oral Tablet (Aldactone) Take 0.5 Tablets by mouth once a day on Friday, Friday, and Friday only. 45 Tablet 3 12/11/2022 Active Potassium Chloride Annalisa ER 20 MEQ Oral Tablet Extended Release (Klor-Con M20)Indications:HTN , goal below 140/90 Take 1 Tablet by mouth in the morning. 90 Tablet 3 12/11/2022 Active Ondansetron 8 MG Oral Tablet Disintegrating (Zofran) DISSOLVE 1 TABLET ON TONGUE EVERY 8 HOURS NEEDED FOR NAUSEA 60 Tablet 5 12/11/2022 Active Zafirlukast 20 MG Oral Tablet (Accolate)Indicatio ns:Asthma with severity to be determined Take 1 Tablet by mouth in the morning. 90 Tablet 3 12/11/2022 Active Ventolin HFA 108 (90 Base) MCG/ACT Inhalation Aerosol Solution Inhale 2 Puffs by mouth in the morning and 2 Puffs before bedtime. 18 g 0 12/11/2022 Active Additional Information Patient not taking.Reported on 12/24/2022 Albuterol Sulfate (2.5 MG/3ML) 0.083% Inhalation Nebulization Solution (Proventil)Indicati ons:Asthma with severity to be determined,COPD, moderate (HCC) USE ONE NEBULIZER TREATMENT TWICE A DAY DIRECTED FOR WORSENING ASTHMA. J45.909, J44.9 225 mL 1 12/11/2022 Active Docusate Sodium 100 MG Oral Capsule (Colace) Take 1 Capsule by mouth in the morning. 90 Capsule 0 12/11/2022 Active Omeprazole 20 MG Oral Capsule Delayed Release (PriLOSEC)Indicatio ns:Ischemic colitis (HCC) Take 1 Capsule by mouth in the morning and 1 Capsule before bedtime. 180 Capsule 3 12/11/2022 Active MEDICAL INSTRUCTIONS Use as directed. Nursing, PT/OT DX: ABDOMINAL INCISION DEHISENCE, CHF, HTN, COPD, CHRONIC RESPIRATORY FAILURE 1 Each 1 12/11/2022 Active Ferrous Sulfate 325 (65 Fe) MG Oral Tablet (Feosol) Take 1 Tablet by mouth 2 times a day with morning and evening meals. 60 Tablet 1 12/16/2022 Active Zoster Vac Recomb Adjuvanted 50 MCG/0.5ML Intramuscular Suspension Reconstituted (Shingrix) Inject 0.5 mL into a large muscle now and repeat dose in 60 to 180 days 1 Each 12/24/2022 Active Ipratropium-Albuter ol 20-100 MCG/ACT Inhalation Aerosol Solution (Combivent Respimat)Indication s:Asthma with severity to be determined,COPD, moderate ([facility]) TAKE 1 PUFF BY MOUTH 4 TIMES A DAY 12 g 1 12/31/2022 Active Sertraline HCl 25 MG Oral Tablet (Zoloft)Indications :Major depressive disorder with single episode, in partial remission ([facility]),HECTOR (generalized anxiety disorder) TAKE 1 TABLET BY MOUTH EVERY DAY IN THE MORNING 90 Tablet 1 12/31/2022 Active methIMAzole 5 MG Oral Tablet (Tapazole) TAKE 1 TABLET BY MOUTH EVERY DAY IN THE MORNING 90 Tablet 1 12/31/2022 Active Dicyclomine HCl 20 MG Oral Tablet (Bentyl)Indications :Chronic constipation TAKE 1 TABLET BY MOUTH EVERY DAY 90 Tablet 2 12/31/2022 Active Glimepiride 2 MG Oral Tablet (Amaryl) TAKE 1 TABLET BY MOUTH EVERY DAY WITH BREAKFAST 90 Tablet 1 12/31/2022 Active Metoprolol Succinate ER 25 MG Oral Tablet Extended Release 24 Hour (Toprol XL) Take one tablet in AM and 1/2 table in the evening. 45 Tablet 6 01/03/2023 Active Vitamin D3 50 MCG (1999 UT) Oral Capsule Take 1 Capsule by mouth in the morning. 90 Capsule 1 01/27/2023 Active Magnesium Chloride 64 MG Oral Tablet Delayed Release (Mag-64) Take 1 Tablet by mouth in the morning. 90 Tablet 1 01/27/2023 Active OneTouch Verio In Vitro Strip (Glucose Blood)Indications:T ype 2 diabetes mellitus with hemoglobin A1c goal of less than 7.5% ([facility]) Test blood sugar once daily. E11.9 100 Strip 5 03/05/2023 Active HYDROcodone-Acetami nophen 5-325 MG Oral TabletIndications:G eneralized osteoarthritis Take 1 Tablet by mouth every 6 hours as needed for Pain, Mild. 120 Tablet 0 03/13/2023 Active Gabapentin 100 MG Oral Capsule (Neurontin)Indicati ons:Arthralgia of both lower legs One pill once daily for 2 days then twice daily for 2 days then continue one pill three times daily 90 Capsule 5 03/27/2023 Active documented as of this encounter (statuses as of 04/16/2023) Active Problems Problem Noted Date Major depressive [...] as of this encounter (statuses as of 04/16/2023) Resolved Problems Problem Noted Date Resolved Date [...] Hypoxemia 10/08/2011 10/30/2015 Genetic Sleep [employer] Other*[id number] 07/25/2011 05/15/2016 COPD, moderate 07/19/2011 07/28/2019 Overview: [...] as of this encounter (statuses as of 04/16/2023) Immunizations Name Administration Dates Next Due COVID-19 mRNA, LNP-s, No Pre serve, 2-Dose Series ([employer]) 08/21/2021,12/22/2020,2020 COVID-19, LNP-s, No Preserve , Tyler-sucrose, Ages 12+ (Pfizer) 04/16/2022 Hepatitis B, 20+ yrs 10/01/2017,04/21/2017,03/20 Pneumococcal Conjugate Vacc, 13 Valent (Prevnar) 03/28/2015 Pneumococcal Conjugate Vacci ne, 20-valent (Dloitvd35) 04/01/2022 Pneumococcal Polysaccharide PPV23 (Pneumovax) 05/21/2006 Seasonal Influenza, Quadriva lent Hd (Fluzone Hd) 06/27/2022,07/10/2021 Seasonal Influenza, Quadriva lent, No Preserve, 6 Mons & Above, IM 06/16/2018,07/30/2017 Seasonal Influenza, Quadriva lent, No Preserve, Adjuvanted, 65+ Yrs, IM 06/22/2020 Seasonal Influenza, Quadriva lent, No Preserve, IM [...] No 11/23/2022 documented as of this encounter Plan of Treatment Upcoming Encounters Date Type Specialty Care Team Description 07/10/2023 Office Visit Internal Medicine Marcela Pinto MD [address] [place] [address] 07/10/2023 Laboratory Laboratory [facility] [address] [place] [address] 07/14/2023 Office Visit Orthopedics Eliezer Gifford, DO [address] [place] [address] 09/18/2023 Office Visit Cardiology Hammad Lopez, DO [address] [place] [address] Pending Results Name Type Priority Associated Diagnoses Date /Time PHOSPHORUS Lab Routine Chronic kidney disease, unspecified CKD stage 04/16/2023 11:32 AM EDT HEMOGLOBIN A1C Lab Routine Type 2 diabetes mellitus with hemoglobin A1c goal of less than 7.5% (HCC) 04/16/2023 11:32 AM EDT COMPREHENSIVE METABOLIC PANEL Lab Routine Chronic kidney disease, unspecified CKD stage 04/16/2023 11:32 AM EDT MYCODE SUBSEQUENT ADULT Lab Routine [employer] Other*[id number] 04/16/2023 11:32 AM EDT MYCODE SST1 Lab Routine [employer] Other*[id number] 04/16/2023 11:32 AM EDT MYCODE SST2 Lab Routine [employer] Other*[id number] 04/16/2023 11:32 AM EDT Health Maintenance Due Date Last Done Comments Zoster Vaccines (3 of 3) 05/27/2022 04/01/2022, 06/14 COVID-19 Vaccine (5 - Booster for Pfizer series) 06/11/2022 04/16/2022, 08/21/2021, 12/22/2020, Additional history exists HbA1c 05/24/2023 11/24/2022, 05/14, 02/19/2022, Additional history exists Influenza Vaccine (FLU shot) (#1) 2023 06/27/2022, 07/10/2021, 06/22/2020, Additional history exists CKD PHOS USE SMARTSET 06404 08/05/202307/14, 02/19/2022, 03/09/2021, Additional history exists GFR 10/02/2023 04/02/2023, 04/10/2022, 12/24/2022, Additional history exists DIABETES-FOOT EXAM 10/10/2023 10/10/2022, 0 11/19/2021, 12/21/2020, Additional history exists Depression Screening, Annual for Pts 12 and Over 10/10/2023 10/10/2022 O2 ASSESSMENT COMPLETED IN PAST YEAR FOR COPD 11/24/2023 11/24/2022 CKD HGB USE SMARTSET 72639 01/22/202401/21, 01/21/2023, 12/24/2022, Additional history exists DIABETES-EYE EXAM 01/24/2024 01/23/2023, , 03/26/2021, Additional history exists Albumin/Creatinine Ratio 04/02/2024 023, 02/19/2022, 07/09/2019, Additional history exists DXA Scan 08/08/2025 08/08/2020, [...] as of this encounter Visit Diagnoses Diagnosis Chronic kidney disease, unspecified CKD stage Type 2 diabetes mellitus with hemoglobin A1c goal of less than 7.5% ([facility]) [employer] Other*[id number] documented in this encounter Advance Directives Latest [...] Advance Directives occurred with: Patient Care Teams File System Installer Relationship Specialty Start Date End Date Marcela Pinto MD [address] [place] [address] [place] [address] PCP - General Internal Medicine 08/04/14 documented as of this encounter
--- OUTSIDE RECORDS SUMMARY | 2023-06-18 02:14 | External Medical Summary | Summary of Care ---
Author Name Unknown Organization [facility] Address [address] [place] [address] Phone [phone] Care Team Providers Care Shipping Inspector Name Role Phone Marcela Pinto MD Primary Care Provider + Reason for Referral * Medication Prior Authorization - Closed Specialty Diagnoses / Procedures Referred By Contnesha t Referred To Contact Diagnoses Generalized osteoarthritis Sandie Soriano MD [address] [place] [address] Referral ID Status Reason Start Date Expiration Date Visits Re quested Visits Authorized [id number] Closed 999 999 Reason for Visit * Reason Onset Date Comments Medication Refill 04/22/2023 Encounter Details Date Type Department Care Team Description 04/22/2023 Refill General Internal Medicine [facility] [place] [address] [place] [address] Marcela Pinto MD [address] [place] [address] GENERAL OSTEOARTHROSIS Allergies Active Allergy Reactions Severity Noted Date Comments Valsartan 07/10/2010 Enalapril 05/21/2006 Escitalopram Oxalate Nausea/vomiting 10/11/2009 Nauseated Iodinated Contrast Media Nausea/vomiting 2009 IV Contrast Iodine Hives 12/18/2009 IV Contrast [place] Oil-Black Currant-Vit E 07/10/2010 Verapamil 03/21/2004 Bupropion Hcl 10/30/2009 Makes pt sick in the stomach documented as of this encounter (statuses as of 04/23/2023) Medications Medication Sig Dispensed Refills Start Date [...] Respimat 1.25 MCG/ACT Inhalation Aerosol Solution (Tiotropium [place] Monohydrate) Inhale 2 Puffs by mouth in [...] Friday only. 45 Tablet 3 3 Active Potassium Chloride Annalisa ER 20 MEQ Oral Tablet Extended Release (Klor-Con M20)Indications:HTN , goal below 140/90 Take 1 Tablet by mouth in the morning. 90 Tablet 3 3 Active Ondansetron 8 MG Oral Tablet Disintegrating (Zofran) DISSOLVE 1 TABLET ON TONGUE EVERY 8 HOURS NEEDED FOR NAUSEA 60 Tablet 5 3 Active Zafirlukast 20 MG Oral Tablet (Accolate)Indicatio [...] 180 days 1 Each 1 3 Active Ipratropium-Albuter ol 20-100 MCG/ACT Inhalation Aerosol Solution (Combivent Respimat)Indication s:Asthma with severity to be determined,COPD, moderate ([facility]) TAKE 1 PUFF BY MOUTH 4 TIMES A DAY 12 g 1 3 Active Sertraline HCl 25 MG Oral Tablet (Zoloft)Indications :Major depressive disorder with single episode, in partial remission ([facility]),HECTOR (generalized anxiety disorder) TAKE 1 TABLET BY MOUTH EVERY DAY IN THE MORNING 90 Tablet 1 3 Active methIMAzole 5 MG Oral Tablet (Tapazole) TAKE 1 TABLET BY MOUTH EVERY DAY IN THE MORNING 90 Tablet 1 3 Active Dicyclomine HCl 20 MG [...] the evening. 45 Tablet 6 3 Active Vitamin D3 50 MCG (1999 UT) Oral Capsule Take 1 Capsule by mouth in the morning. 90 Capsule 1 3 Active Magnesium Chloride 64 MG Oral Tablet Delayed Release (Mag-64) Take 1 Tablet by mouth in the morning. 90 Tablet 1 3 Active OneTouch Verio In Vitro Strip (Glucose Blood)Indications:T ype 2 diabetes mellitus with hemoglobin A1c goal of less than 7.5% ([facility]) Test blood sugar once daily. E11.9 100 Strip 5 3 Active Gabapentin 100 MG Oral Capsule (Neurontin)Indicati ons:Arthralgia of both lower legs One pill once daily for 2 days then twice daily for 2 days then continue one pill three times daily 90 Capsule 5 3 Active HYDROcodone-Acetami nophen 5-325 MG Oral TabletIndications:G eneralized osteoarthritis Take 1 Tablet by mouth every 6 hours as needed for Pain, Mild. 120 Tablet 0 3 Active HYDROcodone-Acetami nophen 5-325 MG Oral TabletIndications:G eneralized osteoarthritis Take 1 Tablet by mouth every 6 hours as needed for Pain, Mild. 120 Tablet 0 3 04/22/20 23 Discontinu ed(Refill) documented as of this encounter (statuses as of 04/23/2023) Active Problems Problem Noted Date Major depressive [...] as of this encounter (statuses as of 04/23/2023) Resolved Problems Problem Noted Date Resolved Date [...] Hypoxemia 10/08/2011 10/30/2015 Genetic [employer] Other*[id number] 07/25/2011 05/15/2016 COPD, moderate 07/19/2011 07/28/2019 Overview: [...] as of this encounter (statuses as of 04/23/2023) Immunizations Name Administration Dates Next Due COVID-19 mRNA, LNP-s, No Pre serve, 2-Dose Series ([employer]) 08/21/2021,12/22/2020,2020 COVID-19, LNP-s, No Preserve , Tyler-sucrose, Ages 12+ (Pfizer) 04/16/2022 Hepatitis B, 20+ yrs 10/01/2017,04/21/2017,03/20 Pneumococcal Conjugate Vacc, 13 Valent (Prevnar) 03/28/2015 Pneumococcal Conjugate Vacci ne, 20-valent (Adcgijv63) 04/01/2022 Pneumococcal Polysaccharide PPV23 (Pneumovax) 05/21/2006 Seasonal [...] encounter Miscellaneous Notes * Telephone Encounter - Cari Godfrey, [facility] - 04/23/2023 10:50 AM EDT Cristiano calling in to verify pt's last appt and next appt as they need to for controlled substancesrx's. Thank you, Cari [facility] (formerly [facility]) 04/23/2023, 10:50 AM * Telephone Encounter - Sandie Soriano MD - 04/22/2023 6:37 PM EDTSigned Prescriptions: Disp Refills HYDROcodone-Acetaminophen 5-325 MG Oral Ta*120 Ta*0 Sig: Take 1 Tablet by mouth every 6 hours as needed for Pain, Mild. Authorizing Provider: SANDIE SORIANO * Telephone Encounter - Sandie Soriano MD - 04/22/2023 6:36 PM EDT "I have reviewed the patient's controlled substance dispensing history in the Prescription Drug Monitoring Program in compliance with the [facility] regulations before prescribing a controlled substance." Last prescription as 120 tablets-02/06/2023, 03/13/2023, rx sent * Telephone Encounter - Cari Hsu LPN - 04/22/2023 4:02 PM EDT Provider to address: Marcela Pinto MD Reason for Call: Medication Refill Contact: Telephone Call Contact Type: Medication Outcome: Pending Prescriptions: Disp Refills HYDROcodone-Acetaminophen 5-325 MG Oral T*120 Ta*0 Sig: Take 1 Tablet by mouth every 6 hours as needed for Pain, Mild. 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 Allergic rhinitis J30.9 Diverticulitis of colon K57.32 Nocturnal hypoxia G47.34 Sleep apnea, obstructive G47.33 HTN, goal below 140/90 I10 Hyperlipidemia with target LDL less than 100 E78.5 Controlled substance agreement signed Z79.899 Type 2 diabetes mellitus with hemoglobin A1c goal of less than 7.5% ([facility]) E11.9 Elevated plasma metanephrines R79.89 Irritable bowel syndrome with constipation K58.1 HECTOR (generalized anxiety disorder) F41.1 COPD, group B, 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 ([facility]) J44.9 Morbid obesity with BMI of 40.0-44.9, adult ([facility]) E66.01, Z68.41 Gastro-esophageal reflux disease without esophagitis K21.9 Paroxysmal atrial fibrillation ([facility]) I48.0 Chronic systolic heart failure ([facility]) I50.22 Pulmonary HTN ([facility]) I27.20 Chronic hypoxemic respiratory failure ([facility]) J96.11 Chronic kidney disease, stage 3a ([facility]) N18.31 Subclinical hyperthyroidism E05.90 History of ESBL E. coli infection Z86.19 Type 2 diabetes mellitus with stage 3a chronic kidney disease, without long- term current use ofinsulin ([facility]) E11.22, N18.31 Gastroparesis K31.84 Ischemic colitis ([facility]) K55.9 Asthma, mild persistent J45.30 Diverticulitis of intestine with abscess K57.80 Protein-calorie malnutrition ([facility]) E46 UTI due to extended-spectrum beta lactamase (ESBL) producing Escherichia coli N39.0, B96.29, Z16.12 History of colon resection Z90.49 Wound dehiscence T81.30XA History of 2019 novel coronavirus disease (COVID-19) Z86.16 Post-op pain G89.18 Presence of Watchman left atrial appendage closure device Z95.818 Full code status Z78.9 Major depressive disorder with single episode, in partial remission ([facility]) F32.4 Labs: Lab Results Component Value Date/Time CREATININE - [facility] 1.1 (H) 04/16/2023 11:32 AM CREATININE - [facility] 1.0 05/27/2020 04:51 PM CREATININE TIM 221 08/26/2019 02:57 PM CREATININE TIM - [facility] 78 06/27/2022 03:41 PM CREATININE, 24 HOUR URINE - [facility] 1.106 02/26/2017 09:11 AM CREATININE, RANDOM URINE - [facility] 18 04/02/2023 02:35 PM CREATININE, RANDOM URINE - [facility] 128 07/09/2019 01:57 PM CREATININE-OUTSIDE LAB 0.84 08/19/2022 12:00 AM Lab Results Component Value Date/Time POTASSIUM - [facility] 4.8 04/16/2023 11:32 AM POTASSIUM - [facility] 4.0 05/27/2020 04:51 PM POTASSIUM-OUTSIDE LAB 3.8 08/19/2022 12:00 AM Lab Results Component Value Date/Time TSH - [facility] 8.88 (H) 12/18/2022 05:41 AM TSH - [facility] 0.42 07/27/2018 11:32 AM TSH - OUTSIDE LAB 0.965 12/05/2020 12:00 AM Lab Results Component Value Date/Time LDL (CALCULATED)-[facility] 75.20 12/05/2020 12:00 AM LDL (CALCULATED)-[facility]IDE LAB 104.00 06/28/2020 12:00 AM LDL (DIRECT MEASURE)-[facility] 85 12/05/2020 12:00 AM LDL (DIRECT MEASURE)-[facility]TSIDE LAB 116 (A) 06/28/2020 12:00 AM LDL CHOLESTEROL (CALCULATED) - [facility] 76 08/07/2021 09:05 AM LDL CHOLESTEROL (CALCULATED) - [facility] 61 07/19/2021 01:05 PM LDL CHOLESTEROL (CALCULATED) - [facility] 95 07/27/2018 11:32 AM LDL CHOLESTEROL (CALCULATED) - [facility] 118 01/14/2018 12:03 PM LDL CHOLESTEROL (DIRECT MEASURE) - [facility] 97 07/27/2018 11:32 AM LDL CHOLESTEROL (DIRECT MEASURE) - [facility] 114 01/14/2018 12:03 PM LDL CHOLESTEROL-OUTSIDE LAB 106 12/06/2020 05:15 AM Lab Results Component Value Date/Time ALT - [facility] 22 04/16/2023 11:32 AM ALT - [facility] 15 05/27/2020 04:51 PM ALT-OUTSIDE LAB 16 04/16/2017 12:00 AM Hemoglobin AIC Results: Lab Results Component Value Date/Time HEMOGLOBIN A1C - [facility] 6.6 (H) 04/16/2023 11:32 AM HEMOGLOBIN A1C - [facility] 6.2 (H) 11/24/2022 06:57 AM HEMOGLOBIN A1C - [facility] 6.8 (H) 06/07/2022 06:28 AM HEMOGLOBIN A1C - [facility] 6.6 (H) 08/26/2019 02:55 PM HEMOGLOBIN A1C - [facility] 6.8 (H) 07/27/2018 11:32 AM HEMOGLOBIN A1C - [facility] 6.2 01/14/2018 12:03 PM Total Time including non face to face (minutes): 5 documented in this encounter Plan of Treatment Upcoming Encounters Date Type Specialty Care Team Description 07/10/2023 Office Visit Internal Medicine Marcela Pinto MD [address] [place] [address] 07/10/2023 Laboratory Laboratory [place], Lab Scenery [address] [place] [address] 07/14/2023 Office Visit Orthopedics Eliezer Gifford, DO [address] [place] [address] 09/18/2023 Office Visit Cardiology Hammad Lopez DO [address] [place] [address] Health Maintenance Due Date Last Done Comments [...] COPD 11/24/2023 11/24/2022 CKD HGB USE SMARTSET 57482 01/22/202401/21, 01/21/2023, 12/24/2022, Additional history exists DIABETES-EYE EXAM 01/24/2024 01/23/2023, , 03/26/2021, Additional history exists Albumin/Creatinine Ratio 04/02/2024 023, 02/19/2022, 07/09/2019, Additional history exists CKD PHOS USE SMARTSET 89717 04/16/2024 07/0 02/2023, 08/05/2022, 02/19/2022, Additional history [...] as of this encounter Visit Diagnoses Diagnosis GENERAL OSTEOARTHROSIS Generalized osteoarthrosis, unspecified site documented in this encounter Advance Directives Latest [...] Advance Directives occurred with: Patient Care Teams Shipping Inspector Relationship Specialty Start Date End Date Marcela Pinto MD [address] [place], [place] [address] [address] PCP - General Internal Medicine 08/04/14 documented as of this encounter
--- OUTSIDE RECORDS SUMMARY | 2023-06-18 02:14 | External Medical Summary ---
Author Name Unknown Address Unknown Organization K01:[facility] - [address] [place] [address] [place] [address] Laboratory Report Ordering Provider Test Date Status JOSE A JOHNSON 04/16/2023 11:32:27 Final Observation Date Value Abnormality Reference (Units ) Status Phosphate 04/16/2023 11:32:27 3.8 2.5-4.8 (m g/dL) Final Performing Location [facility] - [address] [facility] [address]
--- OUTSIDE RECORDS SUMMARY | 2023-06-18 02:14 | External Medical Summary | Summary of Care ---
Author Name Unknown Organization [facility] Address [address] [place] [address] Phone [phone] Care Team Providers Care Assembler Musical Instruments Name Role Phone Marcela Pinto MD Primary Care Provider + Reason for Visit * Reason Onset Date Comments Med Request 04/24/2023 Encounter Details Date Type Department Care Team Description 04/24/2023 Telephone General Internal Medicine [facility] [address] [facility] [place] [address] David Duke PA-C [address] [place] [address] Med Request Allergies Active Allergy Reactions Severity Noted Date Comments Valsartan 07/10/2010 Enalapril 05/21/2006 Escitalopram Oxalate Nausea/vomiting 10/11/2009 Nauseated Iodinated Contrast Media Nausea/vomiting 2009 IV Contrast Iodine Hives 12/18/2009 IV Contrast [place] Oil-Black Currant-Vit E 07/10/2010 Verapamil 03/21/2004 Bupropion Hcl 10/30/2009 Makes pt sick in the stomach documented as of this encounter (statuses as of 05/08/2023) Medications Medication Sig Dispensed Refills Start Date [...] Respimat 1.25 MCG/ACT Inhalation Aerosol Solution (Tiotropium [place] Monohydrate) Inhale 2 Puffs by mouth in [...] 20 MEQ Oral Tablet Extended Release (Klor-Con M20)Indications:HT N, goal below 140/90 Take 1 Tablet by [...] in 60 to 180 days 1 Each 3 Active Ipratropium-Albute rol 20-100 MCG/ACT Inhalation Aerosol Solution (Combivent Respimat)Indicatio ns:Asthma with severity to be determined,COPD, moderate ([facility]) TAKE 1 PUFF BY MOUTH 4 TIMES A DAY 12 g 1 3 Active methIMAzole 5 MG Oral [...] the evening. 45 Tablet 6 3 Active OneTouch Verio In Vitro Strip (Glucose Blood)Indications: Type 2 diabetes mellitus with hemoglobin A1c goal of less than 7.5% ([facility]) Test blood sugar once daily. E11.9 100 Strip 5 3 Active Gabapentin 100 MG Oral Capsule (Neurontin)Indicat ions:Arthralgia of both lower legs One pill once daily for 2 days then twice daily for 2 days then continue one pill three times daily 90 Capsule 5 3 Active HYDROcodone-Acetam inophen 5-325 MG Oral TabletIndications: Generalized osteoarthritis Take 1 Tablet by mouth every 6 hours as needed for Pain, Mild. 120 Tablet 0 3 Active Sertraline HCl 25 MG Oral Tablet (Zoloft)Indication s:Major depressive disorder with single episode, in partial remission ([facility]),HECTOR (generalized anxiety disorder) TAKE 1 TABLET BY MOUTH EVERY DAY IN THE MORNING 90 Tablet 1 3 023 Discontinued Vitamin D3 50 MCG (1999) Oral Capsule Take 1 Capsule by mouth in the morning. 90 Capsule 1 3 023 Discontinued Magnesium Chloride 64 MG Oral Tablet Delayed Release (Mag-64) Take 1 Tablet by mouth in the morning. 90 Tablet 1 3 023 Discontinued documented as of this encounter (statuses as of 05/08/2023) Active Problems Problem Noted Date Major depressive [...] as of this encounter (statuses as of 05/08/2023) Resolved Problems Problem Noted Date Resolved Date [...] Hypoxemia 10/08/2011 10/30/2015 Genetic Sleep Disorder Research Other*[id number] 07/25/2011 05/15/2016 COPD, moderate 07/19/2011 07/28/2019 Overview: [...] as of this encounter (statuses as of 05/08/2023) Immunizations Name Administration Dates Next Due COVID-19 mRNA, LNP-s, No Pre serve, 2-Dose Series ([employer]) 08/21/2021,12/22/2020,2020 COVID-19, LNP-s, No Preserve , Tyler-sucrose, Ages 12+ (Pfizer) 04/16/2022 Hepatitis B, 20+ yrs 10/01/2017,04/21/2017,03/20 Pneumococcal Conjugate Vacc, 13 Valent (Prevnar) 03/28/2015 Pneumococcal Conjugate Vacci ne, 20-valent ([id number]) 04/01/2022 Pneumococcal Polysaccharide PPV23 (Pneumovax) 05/21/2006 Seasonal [...] (15 years old or older) No 11/23/19 23 Cognitive Status Response Date of Assessm ent Because of a physical, menta l, or emotional condition, do you have serious difficulty concentrating, remembering, or making decisions? (5 years old or older No 11/23/2022 documented as of this encounter Miscellaneous Notes * Telephone Encounter - JORDAN Jorgensen - 05/08/2023 11:31 AM EDT Pt is okay w/Protonix daily being called in to pharmacy. * Telephone Encounter - LISA Silva - 05/08/2023 11:24 AM EDT Provider to address: Protonix Reason for Call: Med Request Contact: Telephone Call Contact Type: Medication Outcome: Left message for patient to return our call. Please advise about message below for replacing omeprazole with protonix Total Time including non face to face (minutes): 5 * Telephone Encounter - Briseyda Barber MD - 04/28/2023 5:09 PM EDT Can do Protonix 40 mg daily - check with pt and let me know * Telephone Encounter - Dulce Velasquez - 04/24/2023 12:01 PM EDT Alternative requested for omeprazole DR 20 MG capsule documented in this encounter Plan of Treatment Upcoming Encounters Date Type Specialty Care Team Description 07/10/2023 Office Visit Internal Medicine Marcela Pinto MD [address] [place] [address] 07/10/2023 Laboratory Laboratory [facility] [address] [place] [address] 07/14/2023 Office Visit Orthopedics Eliezer Gifford, DO [address] [place] [address] 09/18/2023 Office Visit Cardiology Hammad Lopez, DO [address] [place] [address] Health Maintenance Due Date Last Done Comments [...] COPD 11/24/2023 11/24/2022 CKD HGB USE SMARTSET 20478 01/22/202401/21, 01/21/2023, 12/24/2022, Additional history exists DIABETES-EYE EXAM 01/24/2024 01/23/2023, , 03/26/2021, Additional history exists Albumin/Creatinine Ratio 04/02/2024 023, 02/19/2022, 07/09/2019, Additional history exists CKD PHOS USE SMARTSET 49891 04/16/2024 07/0 02/2023, 08/05/2022, 02/19/2022, Additional history [...] Not on filedocumented as of this encounter Advance Directives Latest Code Status [...] Advance Directives occurred with: Patient Care Teams Assembler Musical Instruments Relationship Specialty Start Date End Date Marcela Pinto MD [address] [place] [address], [place] [address] PCP - General Internal Medicine 08/04/14 documented as of this encounter
--- OUTSIDE RECORDS SUMMARY | 2023-06-18 02:14 | External Medical Summary | Summary of Care ---
Author Name Unknown Organization [facility] Address [address] [place] [address] Phone [phone] Care Team Providers Care Leather Toggler Name Role Phone Marcela Pinto MD Primary Care Provider + Reason for Visit * Reason Comments eRx-Medication Refill Encounter Details Date Type Department Care Team Description 05/06/2023 Refill General Internal Medicine [facility] [address] [facility] [place] [address] Marcela Pinto MD [address] [place] [address] Major depressive disorder with single episode, in partial remission (HCC); HECTOR (generalized anxiety disorder) Allergies Active Allergy Reactions Severity Noted Date Comments Valsartan 07/10/2010 Enalapril 05/21/2006 Escitalopram Oxalate Nausea/vomiting 10/11/2009 Nauseated Iodinated Contrast Media Nausea/vomiting 2009 IV Contrast Iodine Hives 12/18/2009 IV Contrast [place] Oil-Black Currant-Vit E 07/10/2010 Verapamil 03/21/2004 Bupropion [...] Respimat 1.25 MCG/ACT Inhalation Aerosol Solution (Tiotropium [facility] Monohydrate) Inhale 2 Puffs by mouth in [...] ns:Asthma with severity to be determined,COPD, moderate ([facility]) TAKE 1 PUFF BY MOUTH [...] hemoglobin A1c goal of less than 7.5% ([facility]) Test blood sugar once daily. [...] disorder with single episode, in partial remission ([facility]),EHCTOR (generalized anxiety disorder) TAKE 1 TABLET BY MOUTH EVERY DAY IN THE MORNING 90 Tablet 1 3 Active Vitamin D3 50 MCG (2000 UT) Oral Capsule TAKE 1 CAPSULE BY MOUTH EVERY MORNING 90 Capsule 3 Active Mag64 64 MG Oral Tablet Delayed Release (magnesium chloride ER) TAKE 1 TABLET BY MOUTH EVERY DAY IN THE MORNING 90 Tablet 1 3 Active Sertraline HCl 25 MG Oral Tablet (Zoloft)Indication s:Major depressive disorder with single episode, in partial remission (HCC),HECTOR (generalized anxiety disorder) TAKE 1 TABLET BY MOUTH EVERY DAY IN THE MORNING 90 Tablet 1 3 023 Discontinued Vitamin D3 50 MCG (2000 UT) Oral Capsule Take 1 Capsule by [...] Hypoxemia 10/08/2011 10/30/2015 Genetic Sleep Disorder Research Other*[id number] 07/25/2011 05/15/2016 COPD, moderate 07/19/2011 07/28/2019 Overview: [...] (Prevnar) 03/28/2015 Pneumococcal Conjugate Vacci ne, 20-valent ([id number]) 04/01/2022 Pneumococcal Polysaccharide PPV23 (Pneumovax) 05/21/2006 Seasonal [...] encounter Miscellaneous Notes * Telephone Encounter - Marcela Pinto MD - 05/08/2023 10:09 AM EDTSigned Prescriptions: Disp Refills Sertraline HCl 25 MG Oral Tablet (Zoloft) 90 Tab*1 Sig: TAKE 1 TABLET BY MOUTH EVERY DAY IN THE MORNING Authorizing Provider: MARCELA PINTO Ordering User: MAYELIN CHAVES Vitamin D3 50 MCG (2000 UT) Oral Capsule 90 Cap*1 Sig: TAKE 1 CAPSULE BY MOUTH EVERY MORNING Authorizing Provider: MARCELA PINTO Mag64 64 MG Oral Table t Delayed Release (m*90 Tab*1 Sig: TAKE 1 TABLET BY MOUTH EVERY DAY IN THE MORNING Authorizing Provider: MARCELA PINTO * Telephone Encounter - Mayelin Chaves [facility] - 05/07/2023 1:34 PM EDTPending Prescriptions: Disp Refills Vitamin D3 50 MCG (2000 UT) Oral Capsule 90 Cap*1 Sig: TAKE 1 CAPSULE BY MOUTH EVERY MORNING Mag64 64 MG Oral Tablet Delayed Release (m*90 Tab*1 Sig: TAKE 1 TABLET BY MOUTH EVERY DAY IN THE MORNING Signed Prescriptions: Disp Refills Sertraline HCl 25 MG Oral Tablet (Zoloft) 90 Tab*1 Sig: TAKE 1 TABLET BY MOUTH EVERY DAY IN THE MORNING Authorizing Provider: MARCELA PINTO Ordering User: MAYELIN CHAVES * Telephone Encounter - Mayelin Chaves [facility] - 05/07/2023 1:34 PM EDT [facility] is currently not authorized to approve refills for the pended medication(s) per refill protocol. Please approve if appropriate. Thanks, Mayelin Chaves PharmD Clinical Pharmacist [facility] (formerly [facility]). [phone] 05/07/2023, 1:34 PM * Telephone Encounter - Mayelin Chaves RPh - 05/07/2023 1:33 PM EDT Pending Prescriptions: Disp Refills Sertraline HCl 25 MG Oral Tablet (Zoloft)*90 Tab*1 Sig: TAKE 1 TABLET BY MOUTH EVERY DAY IN THE MORNING Vitamin D3 50 MCG (1999) Oral Capsule *90 Cap*1 Sig: TAKE 1 CAPSULE BY MOUTH EVERY MORNING Mag64 64 MG Oral Tablet Delayed Release (*90 Tab*1 Sig: TAKE 1 TABLET BY MOUTH EVERY DAY IN THE MORNING Last Visit: 03/27/2023 (in office), 08/08/2020 (telemedicine) Next Visit: 07/10/2023 If no future appointments scheduled, and last appointment is greater than a year ago, please schedule patient for a follow-up appointment Last date the medication was ordered: 01/27/23 Pharmacy: [id number] [address] [facility] Is this request for a controlled substance? No Urine Drug Screen: Results for orders placed or performed in visit on 06/27/22 PAIN MANAGEMENT DRUG PANEL, URINE W/ INTERPRETATION Result Value Compliance Interpretation Based on the medication information provided: The presence of hydrocodone and dihydrocodeine is CONSISTENT with hydrocodone use. Amphetamine Negative Benzodiazepines Negative Cannabinoids Negative Cocaine Metabolite Negative Fentanyl Negative Hydrocodone / Hydromorphone Refer to confirmation results (A) Methadone Metabolite Negative Morphine / Codeine Refer to confirmation results (A) Oxycodone / Oxymorphone Refer to confirmation results (A) Valid Interpretation Normal Creatinine TIM 78 Narrative Cutoff Concentrations: Drug Level Amphetamines 500 ng/mL Benzodiazepines 100 ng/mL Cannabinoids 50 ng/mL Cocaine Metabolite 150 ng/mL Fentanyl 1 ng/mL Hydrocodone / Hydromorphone 300 ng/mL Methadone Metabolite 100 ng/mL Morphine / Codeine 300 ng/mL Oxycodone / Oxymorphone 100 ng/mL Screening results are presumptive and can only be used for medical purposes. Confirmatory testing is available upon request. *Note: Due to a large number of results and/or encounters for the requested time period, some results have not been displayed. A complete set of results can be found in Results Review. Patient Phone Numbers Labs: Lab Results Component Value Date/Time CREAT 1.1 (H) 04/16/2023 11:32 AM CREAT 0.84 08/19/2022 12:00 AM CREAT 1.0 05/27/2020 04:51 PM POTASSIUM 4.8 04/16/2023 11:32 AM POTASSIUM 3.8 08/19/2022 12:00 AM POTASSIUM 4.0 05/27/2020 04:51 PM TSH 8.88 (H) 12/18/2022 05:41 AM TSH 0.965 12/05/2020 12:00 AM TSH 0.42 07/27/2018 11:32 AM LDLCALC 76 08/07/2021 09:05 AM LDLCALC 106 12/06/2020 05:15 AM LDLCALC 95 07/27/2018 11:32 AM LDLDIRECT 85 12/05/2020 12:00 AM LDLDIRECT 97 07/27/2018 11:32 AM ALT 22 04/16/2023 11:32 AM ALT 15 05/27/2020 04:51 PM HGBA1C 6.6 (H) 04/16/2023 11:32 AM HGBA1C 6.8 12/06/2020 05:15 AM HGBA1C 6.6 (H) 08/26/2019 02:55 PM documented in this encounter Plan of Treatment Upcoming Encounters Date Type Specialty Care Team Description 07/10/2023 Office Visit Internal Medicine Marcela Pinto MD [address] [place] [address] 07/10/2023 Laboratory Laboratory [facility] [address] [place] [address] 07/14/2023 Office Visit Orthopedics Eliezer Gifford, DO [address] [place] [address] 09/18/2023 Office Visit Cardiology Hammad Lopez, DO [address] [place] [address] Health Maintenance Due Date Last Done Comments [...] COPD 11/24/2023 11/24/2022 CKD HGB USE SMARTSET 49113 01/22/202401/21, 01/21/2023, 12/24/2022, Additional history exists DIABETES-EYE EXAM 01/24/2024 01/23/2023, , 03/26/2021, Additional history exists Albumin/Creatinine Ratio 04/02/2024 023, 02/19/2022, 07/09/2019, Additional history exists CKD PHOS USE SMARTSET 27070 04/16/2024 07/0 02/2023, 08/05/2022, 02/19/2022, Additional history [...] as of this encounter Visit Diagnoses Diagnosis Major depressive disorder with single episode, in partial remission (HCC) HECTOR (generalized anxiety disorder) Generalized anxiety disorder documented in this encounter Advance Directives Latest [...] Advance Directives occurred with: Patient Care Teams Leather Toggler Relationship Specialty Start Date End Date Marcela Pinto MD [address] [facility], [place] [address] PCP - General Internal Medicine 08/04/14 documented as of this encounter
--- OUTSIDE RECORDS SUMMARY | 2023-06-18 02:14 | External Medical Summary ---
Author Name Unknown Address Unknown Organization [id number]:[facility] [place] [address] [place] [address] Laboratory Report Ordering Provider Test Date Status AALIYAH MARCUM 04/16/2023 11:32:27 Final Observation Date Value Abnormality Reference (Units ) Status MYCODE SPECIMEN-SST 04/16/2023 11:32:27 Freezing of extracted DNA, whole blood and/or serum. Final Performing Location LAB[facility]ATORY [facility] - [address] [facility] [address]
--- OUTSIDE RECORDS SUMMARY | 2023-06-18 02:14 | External Medical Summary ---
Author Name Unknown Address Unknown Organization [id number]:[facility] [place] - [address] [place] [address] Laboratory Report Ordering Provider Test Date Status JOSE A JOHNSON 04/16/2023 11:32:27 Final Observation Date Value Abnormality Reference (Units ) Status BUN 04/16/2023 11:32:27 26 Above high normal 6-20 (mg/dL) Final Creatinine 04/16/2023 11:32:27 1.1 Above high normal 0.5-1.0 (mg/dL) Final Glomerular filtration rate/1.73 sq M.predicted [Volume Rate/Area] in Serum, Plasma or Blood by Creatinine-based formula (CKD-EPI) 04/16/2023 11:32:27 52 Below low normal >=60 (mL/min) Final Performing Location LABORATORY [facility] [place] - [address] [place] [address]
--- OUTSIDE RECORDS SUMMARY | 2023-06-18 02:14 | External Medical Summary ---
Author Name Unknown Address Unknown Organization K01:LABORATORY [facility] [place] - [address] [place] [address] Laboratory Report Ordering Provider Test Date Status AALIYAH MARCUM 04/16/2023 11:32:27 Final Observation Date Value Abnormality Reference (Units ) Status MYCODE SPECIMEN-SST 04/16/2023 11:32:27 Freezing of extracted DNA, whole blood and/or serum. Final Performing Location LAB[facility]ATORY C [facility] [address] [facility] [address]
--- OUTSIDE RECORDS SUMMARY | 2023-06-18 02:14 | External Medical Summary | Summary of Care ---
Author Name Unknown Organization [facility] Address [address] [place] [address] Phone [phone] Care Team Providers Care Award Clerk Name Role Phone Marcela Pinto MD Primary Care Provider + Reason for Visit * Reason Comments [facility] Care Coordination Services Encounter Details Date Type Department Care Team Description 12/30/2022 Home Visit Care Coordination [address], [place] [id number] [facility] [address] [place] [address] [place] [address] Type 2 diabetes mellitus with stage 3a chronic kidney disease, without long-term current use of insulin ([facility]; Chronic kidney disease, stage 3a ([facility]); Chronic hypoxemic respiratory failure ([facility]); COPD, group B, 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 ([facility]); HTN, goal below 140/90; Pulmonary HTN ([facility]) Allergies Active Allergy Reactions Severity Noted Date Comments Valsartan 07/10/2010 Enalapril 05/21/2006 Escitalopram Oxalate Nausea/vomiting 10/11/2009 Nauseated Iodinated Contrast Media Nausea/vomiting 2009 IV Contrast Iodine Hives 12/18/2009 IV Contrast [place] Oil-Black Currant-Vit E 07/10/2010 Verapamil 03/21/2004 Bupropion Hcl 10/30/2009 Makes pt sick in the stomach documented as of this encounter (statuses as of 04/11/2023) Medications Medication Sig Dispensed Refills Start Date [...] Respimat 1.25 MCG/ACT Inhalation Aerosol Solution (Tiotropium [place] Monohydrate) Inhale 2 Puffs by mouth in [...] 60 to 180 days 1 Each 1 12/24/2022 Active documented as of this encounter (statuses as of 04/11/2023) Active Problems Problem Noted Date Major depressive [...] as of this encounter (statuses as of 04/11/2023) Resolved Problems Problem Noted Date Resolved Date [...] Hypoxemia 10/08/2011 10/30/2015 Genetic Sleep Disorder Research Other*[id number] 07/25/2011 05/15/2016 COPD, moderate 07/19/2011 07/28/2019 Overview: [...] as of this encounter (statuses as of 04/11/2023) Immunizations Name Administration Dates Next Due COVID-19 mRNA, LNP-s, No Pre serve, 2-Dose Series (PinoyTravel) 08/21/2021,12/22/2020,2020 COVID-19, LNP-s, No Preserve , Tyler-sucrose, Ages 12+ (Pfizer) 04/16/2022 Hepatitis B, 20+ yrs 10/01/2017,04/21/2017,03/20 Pneumococcal Conjugate Vacc, 13 Valent (Prevnar) 03/28/2015 Pneumococcal Conjugate Vacci ne, 20-valent ([id number]) 04/01/2022 Pneumococcal Polysaccharide PPV23 (Pneumovax) 05/21/2006 Seasonal [...] on file documented as of this encounter Last Filed Vital Signs Vital Sign Reading Time Taken Comments Blood Pressure 104/62 12/30/2022 12:40 PM EDT Pulse 80 12/30/2022 12:40 PM EDT Temperature 37.1 C (98.8 F) 12/30/2022 12:40 PM E DT Respiratory Rate - - Oxygen Saturation 97% 12/30/2022 12:40 PM EDT Inhaled Oxygen Concentration - - Weight - - Height - - Body Mass Index - - documented in this encounter Functional Status Functional Status Response [...] No 11/23/2022 documented as of this encounter Progress Notes * [facility] - 12/30/2022 12:13 PM EDT [facility] Visit Date: 12/30/2022 Time: 12:00 PM Name: Nina Harrington : 1940 Referral Source: government sales manager Source of Information: Patient Spoken language: Mohawk Patient can read in Mohawk: Yes. Tile Setter Supervisor needed: No. COVID-19 screening completed: Yes Vitals: Vital signs completed: Yes, vital signs within normal range. BP 104/62 | Pulse 80 | Temp 37.1 C (98.8 F) | SpO2 97% Condition Changes: Changes in health or social status since last visit: Pt recently DC from SNF following a lengthy uxqcbufu-guspk-rtkzfjjb-SNF stay. [facility] for custodial visits r/t abd wound and therapy r/t weakness/deconditioning The patient has new concerns since last visit: No Progress towards goals since last visit: Continues living independently Medications: Medication review completed? No, Does the patient have barriers to medication adherence? No. - daughter manages meds. HH overseeing as well Patient reports difficulty paying for medications or might in the future: No. Telehealth: This is a telehealth visit: No. Symptoms Surveys and Evaluations: MA[facility]10 completed this visit: Yes. Score is 4 or more? Yes, notified Provider/Family Partner Last flowsheet values for [facility]: Age 65+: 1 (12/30/2022 12:00 PM) Diagnosis (3 or more co-existing): 1 (12/30/2022 12:00 PM) Prior history of falls within 3 months: 0 (12/30/2022 12:00 PM) Incontinence: 0 (12/30/2022 12:00 PM) Visual impairment: 0 (12/30/2022 12:00 PM) Impaired functional mobility: 1 (12/30/2022 12:00 PM) Environmental hazards: 0 (12/30/2022 12:00 PM) Poly Pharmacy (4 or more prescriptions - any type): 1 (12/30/2022 12:00 PM) Pain affecting level of function: 0 (12/30/2022 12:00 PM) Cognitive impairment: 0 (12/30/2022 12:00 PM) Score - a score of 4 or more is considered at risk for fallin (12/30/2022 12:00 PM) COPD Checklist COPD SAJAN ([facility]) Checklist The patient uses oxygen: Yes Tanks are stored: in living area Compressor located away from anything flammable: yes Oxygen tubing: - Clean and in good repair: Yes - Reached out to Durable Medical Equipment supplier for replacement tubing: No, na - Referred to Family Partner for additional in-home respiratory assessment: No, na - Other: na Describe how the patient manages going out with oxygen: does not go without - Referred to Family Partner for portable oxygen order: No Na - Coordinated portable oxygen tanks with Durable Medical Equipment supplier: No na 2L via NC while awake, 4L via NC at HS The patient uses a nebulizer: Yes Describe how the patient uses their nebulizer: Demonstrated using the nebulizer and appeared to understand. Describe how the patient cleans the nebulizer (including the filter): Patient demonstrated cleaning and appeared to understand. The patient uses an inhaler: Yes Describe how the patient uses the inhaler: Patient demonstrated using the inhaler and appeared to understand. Describe how the patient cleans the inhaler: Patient demonstrated cleaning and appeared to understand. Frequency of inhaler use: Daily, as per order. Has needed PRN albuterol more often as of late. COPD Assessment Test (CAT) completed this visit: Yes Last flowsheet values for COPD Assessment Test (CAT): How often do you cough?: 1 (12/30/2022 12:00 PM) Do you have phlegm (mucus) in your chest at all? : 0 (12/30/2022 12:00 PM) Does your chest feel tight?: 0 (12/30/2022 12:00 PM) How out of breath are you when you walk up a hill or flight of stairs?: 5 (12/30/2022 12:00 PM) How limited are you doing any activities at home?: 5 (12/30/2022 12:00 PM) [id number](600803)@How soundly do you sleep?: 3 (12/30/2022 12:00 PM) How much energy do you have?: 4 (12/30/2022 12:00 PM) CAT Total Score: 21 (12/30/2022 12:00 PM) Home Safety Does member identify any safety issues related to entering or exiting their home? No Does the patient need a wheelchair ramp to access the home? No Snow/ice removal assistance available? Yes Is there adequate lighting? Yes Are there railings on stairs? Yes Do sidewalks appear to be in good repair? N/A Does member identify any safety issues related to the interior of their home? No If durable medical equipment is used, halls and doorways easy to navigate? Yes Are there trip hazards in the home? Yes - O2 tubing Are there working smoke detectors/CO2 detectors? Yes Is a health condition present or an air quality concern that an air conditioner or other coolingdevice will help? No Do stairs in the home have railings? N/A Is there a medical alert or phone near patient? No - pt would like one Are walkways clear and well lit? Yes Does member identify any safety issues related to utilizing or accessing the bathroom in their home? Yes - pt reports she needs tub bench to transfer in/out of shower. (has shower chair, but unable to step over tub) Upon inspection, does not seem that bench will work, as it would be directly acrossfrom toilet, and likely not enough room to slide across bench or access toilet Does bathroom have grab bars needed? No grab bars in bathroom or tub - would benefit from grab bar outside of shower, across from toilet and inside the shower. The patient reports needing help getting on and off the toilet? No Does the patient report needing help bathing? No Patient sponge bathing currently d/t abd wound Are there any other identified issues/needs? No. Patient denies SDOH needs. Family lives close by and is very supportive - assists with meals and ADLs as needed. Family provides transportation to/from appts. Plan: Notified Provider/Family Partner of Other: visit outcome Re shower chair - probably not the answer. Advised pt to f/u with therapist for advice SAJAN AAA referral for medical alert button Follow Up: Patient encouraged to call the intake phone number for all urgent but not emergent issues. Scheduled to follow up with patient in PRN. [facility] 12/30/2022 12:00 PM documented in this encounter Plan of Treatment Upcoming Encounters Date Type Specialty Care Team Description 07/10/2023 Office Visit Internal Medicine Marcela Pinto MD [address] [place] [address] 07/10/2023 Laboratory Laboratory [facility] [address] [place] [address] 07/14/2023 Office Visit Orthopedics Eliezer Gifford, DO [address] [place] [address] 09/18/2023 Office Visit Cardiology Hammad Lopez, DO [address] [place] [address] Health Maintenance Due Date Last Done Comments Zoster Vaccines (3 of 3) 05/27/2022 04/01/2022, 06/14 COVID-19 Vaccine (5 - Booster for Pfizer series) 06/11/2022 04/16/2022, 08/21/2021, 12/22/2020, Additional history exists HbA1c 05/24/2023 11/24/2022, 05/14, 02/19/2022, Additional history exists CKD PHOS USE SMARTSET 83119 08/05/202307/14, 02/19/2022, 03/09/2021, Additional history exists GFR 10/02/2023 04/02/2023, 01/11, 12/24/2022, Additional history exists DIABETES-FOOT EXAM 10/10/2023 10/10/2022, 0 11/19/2021, 12/21/2020, Additional history exists Depression Screening, Annual for Pts 12 and Over 10/10/2023 10/10/2022 O2 ASSESSMENT COMPLETED IN PAST YEAR FOR COPD 11/24/2023 11/24/2022 CKD HGB USE SMARTSET 15476 01/22/202401/21, 01/21/2023, 12/24/2022, Additional history exists DIABETES-EYE [...] Vaccine: 65+ Years Completed 04/01/2022, 03/28/2015, 05/21/2006 Influenza Vaccine (FLU shot) Completed 06/27/2022, 07/10/2021, 06/22/2020, Additional history exists Alpha-1 Antitrypsin Completed 01/21/2023 GARDASIL-HPV IMMUNIZATION SERIES Aged Out No longer eligible based on patient's age to complete this topic MENINGOCOCCAL (MENACTRA/MENVEO) Aged Out No longer eligible based on patient's age to complete this topic documented as of this encounter Medical Devices Not on filedocumented as of this encounter Visit Diagnoses Diagnosis Type 2 diabetes mellitus with stage 3a chronic kidney disease, without long-term current use of insulin (HCC)- Primary Chronic kidney disease, stage 3a (HCC) Chronic hypoxemic respiratory failure (HCC) Chronic respiratory failure COPD, group B, 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 (HCC) HTN, goal below 140/90 Unspecified essential hypertension Pulmonary HTN (HCC) Other chronic pulmonary heart diseases documented in this encounter Additional Health Concerns Infection Onset Date Last Indicated Resolved Time ESBL Comment:[facility] 11/1911/19/2022 11/25/2022 01/24/2023 12:21 AM EDT documented as of this encounter Advance Directives Latest [...] Advance Directives occurred with: Patient Care Teams Award Clerk Relationship Specialty Start Date End Date Marcela Pinto MD [address] [place] [id number] PCP - General Internal Medicine 08/04/14 documented as of this encounter"
--- OUTSIDE RECORDS SUMMARY | 2023-06-18 02:14 | External Medical Summary | Summary of Care ---
Author Name Unknown Organization [facility] Address [address] [place] [address] Phone [phone] Care Team Providers Care Product Consultant Name Role Phone Marcela Pinto MD Primary Care Provider + Reason for Visit * Reason Onset Date Comments Med Request 04/24/2023 Encounter Details Date Type Department Care Team Description 04/24/2023 Telephone General Internal Medicine [facility] [address] [facility] [place] [address] David Duke PA-C [address] [place] [address] Med Request Allergies Active Allergy Reactions Severity Noted Date Comments Valsartan 07/10/2010 Enalapril 05/21/2006 Escitalopram Oxalate Nausea/vomiting 10/11/2009 Nauseated Iodinated Contrast Media Nausea/vomiting 2009 IV Contrast Iodine Hives 12/18/2009 IV Contrast [place] Oil-Black Currant-Vit E 07/10/2010 Verapamil 03/21/2004 Bupropion [...] Respimat 1.25 MCG/ACT Inhalation Aerosol Solution (Tiotropium [place] Monohydrate) Inhale 2 Puffs by mouth in [...] ns:Asthma with severity to be determined,COPD, moderate ([facility]) TAKE 1 PUFF BY MOUTH [...] hemoglobin A1c goal of less than 7.5% ([facility]) Test blood sugar once daily. [...] disorder with single episode, in partial remission ([facility]),HECTOR (generalized anxiety disorder) TAKE 1 [...] Hypoxemia 10/08/2011 10/30/2015 Genetic Sleep Disorder Research Other*[id number] 07/25/2011 05/15/2016 COPD, moderate 07/19/2011 07/28/2019 Overview: [...] mRNA, LNP-s, No Pre serve, 2-Dose Series ([employer]) 08/21/2021,12/22/2020,2020 COVID-19, LNP-s, No Preserve , Tyler-sucrose, Ages 12+ (Pfizer) 04/16/2022 Hepatitis B, 20+ yrs 10/01/2017,04/21/2017,03/20 Pneumococcal Conjugate Vacc, 13 Valent (Prevnar) 03/28/2015 Pneumococcal Conjugate Vacci ne, 20-valent ([id number]) 04/01/2022 Pneumococcal Polysaccharide PPV23 (Pneumovax) 05/21/2006 Seasonal [...] Internal Medicine Marcela Pinto MD [address] [place] [address] 07/10/2023 Laboratory Laboratory [facility] [address] [place] [address] 07/14/2023 Office Visit Orthopedics Eliezer Gifford, DO [address] [place] [address] 09/18/2023 Office Visit Cardiology Hammad Lopez, DO [address] [place] [address] Health Maintenance Due Date Last Done Comments [...] COPD 11/24/2023 11/24/2022 CKD HGB USE SMARTSET 59692 01/22/202401/21, 01/21/2023, 12/24/2022, Additional history exists DIABETES-EYE EXAM 01/24/2024 01/23/2023, , 03/26/2021, Additional history exists Albumin/Creatinine Ratio 04/02/2024 023, 02/19/2022, 07/09/2019, Additional history exists CKD PHOS USE SMARTSET 76556 04/16/2024 07/0 02/2023, 08/05/2022, 02/19/2022, Additional history [...] Advance Directives occurred with: Patient Care Teams Product Consultant Relationship Specialty Start Date End Date Marcela Pinto MD [address] [place] [address], [place] [address] PCP - General Internal Medicine 08/04/14 documented as of this encounter
--- OUTSIDE RECORDS SUMMARY | 2023-06-18 02:14 | External Medical Summary | Summary of Care ---
Author Name Unknown Organization [facility] Address [address] [place] [address] Phone [phone] Care Team Providers Care Painter Maintenance Name Role Phone Marcela Pinto MD Primary Care Provider + Reason for Referral * Medication Prior Authorization - Closed Specialty Diagnoses / Procedures Referred By Contnesha t Referred To Contact Diagnoses Generalized osteoarthritis Marcela Pinto MD [address] [place] [address] Referral ID Status Reason Start Date Expiration Date Visits Re quested Visits Authorized [id number] Closed 999 999 Reason for Visit * Reason Onset Date Comments Medication Refill 05/26/2023 Encounter Details Date Type Department Care Team Description 05/26/2023 Refill General Internal Medicine [facility] [address] [place] [address] Marcela Pinto MD [address] [place] [address] GENERAL OSTEOARTHROSIS Allergies Active Allergy Reactions Severity Noted Date Comments Valsartan 07/10/2010 Enalapril 05/21/2006 Escitalopram Oxalate Nausea/vomiting 10/11/2009 Nauseated Iodinated Contrast Media Nausea/vomiting 2009 IV Contrast Iodine Hives 12/18/2009 IV Contrast [place] Oil-Black Currant-Vit E 07/10/2010 Verapamil 03/21/2004 Bupropion Hcl 10/30/2009 Makes pt sick in the stomach documented as of this encounter (statuses as of 05/26/2023) Medications Medication Sig Dispensed Refills Start Date [...] Respimat 1.25 MCG/ACT Inhalation Aerosol Solution (Tiotropium [place] Monohydrate) Inhale 2 Puffs by mouth in [...] s:Asthma with severity to be determined,COPD, moderate ([facility]) TAKE 1 PUFF BY MOUTH 4 [...] the evening. 45 Tablet 6 3 Active EdithTouch Vermichelle In Vitro Strip (Glucose Blood)Indications:T ype 2 diabetes mellitus with hemoglobin A1c goal of less than 7.5% ([facility]) Test blood sugar once daily. E11.9 [...] disorder with single episode, in partial remission ([facility]),HECTOR (generalized anxiety disorder) TAKE 1 TABLET BY MOUTH EVERY DAY IN THE MORNING 90 Tablet 1 3 Active Vitamin D3 50 MCG (2000 UT) Oral Capsule TAKE 1 CAPSULE BY MOUTH EVERY MORNING 90 Capsule 1 3 Active Mag64 64 MG Oral Tablet Delayed Release (magnesium chloride ER) TAKE 1 TABLET BY MOUTH EVERY DAY IN THE MORNING 90 Tablet 1 3 Active HYDROcodone-Acetami nophen 5-325 MG Oral TabletIndications:G eneralized osteoarthritis Take 1 Tablet by mouth every 6 hours as needed for Pain, Mild. 120 Tablet 0 3 Active HYDROcodone-Acetami nophen 5-325 MG Oral TabletIndications:G eneralized osteoarthritis Take 1 Tablet by mouth every 6 hours as needed for Pain, Mild. 120 Tablet 0 3 05/26/20 Discontinu ed(Refill) documented as of this encounter (statuses as of 05/26/2023) Active Problems Problem Noted Date Major depressive [...] as of this encounter (statuses as of 05/26/2023) Resolved Problems Problem Noted Date Resolved Date [...] Hypoxemia 10/08/2011 10/30/2015 Genetic Sleep Disorder Research Other*[id number] 07/25/2011 05/15/2016 COPD, moderate 07/19/2011 07/28/2019 Overview: [...] as of this encounter (statuses as of 05/26/2023) Immunizations Name Administration Dates Next Due COVID-19 mRNA, LNP-s, No Pre serve, 2-Dose Series (Pfizer) 08/21/2021,12/22/2020,2020 COVID-19, LNP-s, No Preserve , Tyler-sucrose, Ages 12+ (Pfizer) 04/16/2022 Hepatitis B, 20+ yrs 10/01/2017,04/21/2017,03/20 Pneumococcal Conjugate Vacc, 13 Valent (Prevnar) 03/28/2015 Pneumococcal Conjugate Vacci ne, 20-valent ([id number]) 04/01/2022 Pneumococcal Polysaccharide PPV23 (Pneumovax) 05/21/2006 Seasonal [...] Telephone Encounter - Marcela Pinto MD - 05/26/2023 4:02 PM EDTSigned Prescriptions: Disp Refills HYDROcodone-Acetaminophen 5-325 MG Oral Ta*120 Ta*0 Sig: Take 1 Tablet by mouth every 6 hours as needed for Pain, Mild. Authorizing Provider: MARCELA PINTO * Telephone Encounter - Nicoletara Saeed LPN - 05/26/2023 3:48 PM EDT Provider to address: med refill Reason for Call: No chief complaint on file. Contact: Telephone Call Contact Type: Medication Outcome: Pending Prescriptions: Disp Refills HYDROcodone-Acetaminophen 5-325 MG Oral T*120 Ta*0 Sig: Take 1 Tablet by mouth every 6 hours as needed for Pain, Mild. Last Visit: 03/27/2023 (in office), 08/08/2020 (telemedicine) Next Visit: 07/10/2023 Last date the medication was ordered: 04/22/23 Patient Active Problem List Diagnosis Code Asthma [...] hemoglobin A1c goal of less than 7.5% ([facility]) E11.9 Elevated plasma metanephrines R79.89 Irritable bowel syndrome with constipation K58.1 HECTOR (generalized anxiety disorder) F41.1 COPD, group B, 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 ([facility]) J44.9 Morbid obesity with BMI of 40.0-44.9, adult ([facility]) E66.01, Z68.41 Gastro-esophageal reflux disease without esophagitis K21.9 Paroxysmal atrial fibrillation ([facility]) I48.0 Chronic systolic heart failure ([facility]) I50.22 Pulmonary HTN ([facility]) I27.20 Chronic hypoxemic respiratory failure ([facility]) J96.11 Chronic kidney disease, stage 3a ([facility]) N18.31 Subclinical hyperthyroidism E05.90 History of ESBL E. coli infection Z86.19 Type 2 diabetes mellitus with stage 3a chronic kidney disease, without long- term current use ofinsulin ([facility]) E11.22, N18.31 Gastroparesis K31.84 Ischemic colitis ([facility]) K55.9 Asthma, mild persistent J45.30 Diverticulitis of intestine with abscess K57.80 Protein-calorie malnutrition ([facility]) E46 UTI due to extended-spectrum beta lactamase (ESBL) producing Escherichia coli N39.0, B96.29, Z16.12 History of colon resection Z90.49 Wound dehiscence T81.30XA History of 2019 novel coronavirus disease (COVID-19) Z86.16 Post-op pain G89.18 Presence of Watchman left atrial appendage closure device Z95.818 Full code status Z78.9 Major depressive disorder with single episode, in partial remission ([facility]) F32.4 Labs: Lab Results Component Value Date/Time [...] Visit Internal Medicine Marcela Pinto MD [address] [place] [address] 07/10/2023 Laboratory Laboratory [place] [address] [place] [address] 07/14/2023 Office Visit Orthopedics Eliezer Gifford, DO [address] [place] [address] 09/18/2023 Office Visit Cardiology Hammad Lopez, DO [address] [place] [address] Health Maintenance Due Date Last Done Comments [...] COPD 11/24/2023 11/24/2022 CKD HGB USE SMARTSET 21233 01/22/202401/21, 01/21/2023, 12/24/2022, Additional history exists DIABETES-EYE EXAM 01/24/2024 01/23/2023, , 03/26/2021, Additional history exists Albumin/Creatinine Ratio 04/02/2024 023, 02/19/2022, 07/09/2019, Additional history exists CKD PHOS USE SMARTSET 42518 04/16/2024 07/0 02/2023, 08/05/2022, 02/19/2022, Additional history [...] Advance Directives occurred with: Patient Care Teams Painter Maintenance Relationship Specialty Start Date End Date Marcela Pinto MD [address] [facility] [place] [address] PCP - General Internal Medicine 08/04/14 documented as of this encounter
--- OUTSIDE RECORDS SUMMARY | 2023-06-18 02:14 | External Medical Summary | Summary of Care ---
Author Name Unknown Organization [facility] Address [address] [place] [address] Phone [phone] Care Team Providers Care Tax Revenue Officer Name Role Phone Alex Pinto MD Primary Care Provider + Reason for Visit * Reason Comments eRx-Medication Refill Encounter Details Date Type Department Care Team Description 05/30/2023 Refill General Internal Medicine [facility] [address] [facility] [place] [address] Alex Pinto MD [address] [place] [address] HTN, goal below 140/90 Allergies Active Allergy Reactions Severity Noted Date Comments Valsartan 07/10/2010 Enalapril 05/21/2006 Escitalopram Oxalate Nausea/vomiting 10/11/2009 Nauseated Iodinated Contrast Media Nausea/vomiting 2009 IV Contrast Iodine Hives 12/18/2009 IV Contrast [place] Oil-Black Currant-Vit E 07/10/2010 Verapamil 03/21/2004 Bupropion Hcl 10/30/2009 Makes pt sick in the stomach documented as of this encounter (statuses as of 06/02/2023) Medications Medication Sig Dispensed Refills Start Date [...] Respimat 1.25 MCG/ACT Inhalation Aerosol Solution (Tiotropium [place] Monohydrate) Inhale 2 Puffs by mouth in [...] 180 days 1 Each 1 3 Active Ipratropium-[place] rol 20-100 MCG/ACT Inhalation Aerosol Solution (Combivent Respimat)Indicatio ns:Asthma with severity to be determined,COPD, moderate ([facility]) TAKE 1 PUFF BY MOUTH 4 TIMES A DAY 12 g 1 3 Active Dicyclomine HCl 20 MG [...] hemoglobin A1c goal of less than 7.5% ([facility]) Test blood sugar once daily. [...] disorder with single episode, in partial remission ([facility]),HECTOR (generalized anxiety disorder) TAKE 1 [...] THE MORNING 90 Tablet 1 3 Active Potassium Chloride Annalisa ER 20 MEQ Oral Tablet Extended Release (Klor-Con M20)Indications:HT N, goal below 140/90 Take 1 Tablet by mouth in the morning. 90 Tablet 3 3 023 Discontinued methIMAzole 5 MG Oral Tablet (Tapazole) TAKE 1 TABLET BY MOUTH EVERY DAY IN THE MORNING 90 Tablet 1 3 023 Discontinued documented as of this encounter (statuses as of 06/02/2023) Active Problems Problem Noted Date Major depressive [...] as of this encounter (statuses as of 06/02/2023) Resolved Problems Problem Noted Date Resolved Date Type 2 diabetes mellitus wit h stage 3a chronic kidney disease 05/21/2021 11/19/2021 Overview: Per CKD protocol Asthma in remission 01/09/2021 03/05/2021 Asthma, mild persistent 01/09/2021 03/05/20 Asthma, moderate persistent 01/09/2021 05/2 01/2021 Asthma, [...] Hypoxemia 10/08/2011 10/30/2015 Genetic Sleep Disorder Research Other*[id number] 07/25/2011 05/15/2016 COPD, moderate 07/19/2011 07/28/2019 Overview: [...] as of this encounter (statuses as of 06/02/2023) Immunizations Name Administration Dates Next Due COVID-19 mRNA, LNP-s, No Pre serve, 2-Dose Series ([employer]) 08/21/2021,12/22/2020,2020 COVID-19, LNP-s, No Preserve , Tyler-sucrose, Ages 12+ (Pfizer) 04/16/2022 Hepatitis B, 20+ yrs 10/01/2017,04/21/2017,03/20 Pneumococcal Conjugate Vacc, 13 Valent (Prevnar) 03/28/2015 Pneumococcal Conjugate Vacci ne, 20-valent ([id number]) 04/01/2022 Pneumococcal Polysaccharide PPV23 (Pneumovax) 05/21/2006 Season [...] encounter Miscellaneous Notes * Telephone Encounter - Alex Pinto MD - 06/02/2023 10:04 AM EDTSigned Prescriptions: Disp Refills Klor-Con M20 20 MEQ Oral Tablet Extended R*90 Tab*1 Sig: TAKE 1 TABLET BY MOUTH EVERY DAY Authorizing Provider: ALEX PINTO methIMAzole 5 MG Oral Tablet (Tapazole) 90 Tab*1 Sig: TAKE 1 TABLET BY MOUTH EVERY DAY IN THE MORNING Authorizing Provider: ALEX PINTO * Telephone Encounter - Doug Hayward [facility] - 05/31/2023 8:24 AM EDTPending Prescriptions: Disp Refills Klor-Con M20 20 MEQ Oral Tablet Extended R*90 Tab*1 Sig: TAKE 1 TABLET BY MOUTH EVERY DAY methIMAzole 5 MG Oral Tablet (Tapazole) 90 Tab*1 Sig: TAKE 1 TABLET BY MOUTH EVERY DAY IN THE MORNING * Telephone Encounter - Doug Hayward [facility] - 05/31/2023 8:23 AM EDT Unable to authorize medication refills for pended medication(s) at this time. Part of the protocol criteria used for refill authorization was not satisfied. Rxs last prescribed by [facility]. Please approve if appropriate. Thank You, Doug Umaña [facility] Clinical Pharmacist [facility] ([facility]) (formerly Telepharmacy) 05/31/2023, 8:23 AM * Telephone Encounter - Doug Hayward [facility] - 05/31/2023 8:21 AM EDT Pending Prescriptions: Disp Refills Klor-Con M20 20 MEQ Oral Tablet Extended *90 Tab*3 Sig: TAKE 1 TABLET BY MOUTH EVERY DAY methIMAzole 5 MG Oral Tablet (Tapazole) [*90 Tab*1 Sig: TAKE 1 TABLET BY MOUTH EVERY DAY IN THE MORNING Last Visit: 03/27/2023 (in office), 08/08/2020 (telemedicine) Next Visit: 07/10/2023 If no future appointments scheduled, and last appointment is greater than a year ago, please schedule patient for a follow-up appointment Last date the medication was ordered: , 12/31/22 Pharmacy: [id number] [facility] Is this request for a controlled substance? [...] Team Description 07/10/2023 Office Visit Internal Medicine Alex Pinto MD [address] [place] [address] 07/10/2023 Laboratory [facility] [address] [place] [address] 07/14/2023 Office Visit Orthopedics Eliezer Gifford, [address] [place] [address] 09/18/2023 Office Visit Cardiology Hammad Lopez DO [address] [place] [address] Health Maintenance Due Date Last Done Comments [...] COPD 11/24/2023 11/24/2022 CKD HGB USE SMARTSET 47983 01/22/202401/21, 01/21/2023, 12/24/2022, Additional history exists DIABETES-EYE EXAM 01/24/2024 01/23/2023, , 03/26/2021, Additional history exists Albumin/Creatinine Ratio 04/02/2024 023, 02/19/2022, 07/09/2019, Additional history exists CKD PHOS USE SMARTSET 43165 04/16/2024 07/0 02/2023, 08/05/2022, 02/19/2022, Additional history [...] as of this encounter Visit Diagnoses Diagnosis HTN, goal below 140/90 Unspecified essential hypertension documented in this encounter Advance Directives Latest [...] Advance Directives occurred with: Patient Care Teams Tax Revenue Officer Relationship Specialty Start Date End Date Alex Pinto MD [address] [place] [address] [place] [address] PCP - General Internal Medicine 08/04/14 documented as of this encounter
--- OUTSIDE RECORDS SUMMARY | 2023-06-18 02:15 | External Medical Summary | Summary of Care ---
Author Name Unknown Organization [facility] Address [address] [place] [address] Phone [phone] Care Team Providers Care Veneer Gluer Name Role Phone Marcela Pinto MD Primary Care Provider + Reason for Visit * Reason Comments Outpatient Testing Encounter Details Date Type Department Care Team Description 04/02/2023 Laboratory Laboratory [address] [place] [id number] [facility] [address] [place] [address] Type 2 diabetes mellitus with hemoglobin A1c goal of less than 7.5% ([facility]); HTN, goal below 140/90 Allergies Active Allergy Reactions Severity Noted Date Comments Valsartan 07/10/2010 Enalapril 05/21/2006 Escitalopram Oxalate Nausea/vomiting 10/11/2009 Nauseated Iodinated Contrast Media Nausea/vomiting 2009 IV Contrast Iodine Hives 12/18/2009 IV Contrast [place] Oil-Black Currant-Vit E 07/10/2010 Verapamil 03/21/2004 Bupropion Hcl 10/30/2009 Makes pt sick in the stomach documented as of this encounter (statuses as of 04/02/2023) Medications Medication Sig Dispensed Refills Start Date [...] Respimat 1.25 MCG/ACT Inhalation Aerosol Solution (Tiotropium [address] Monohydrate) Inhale 2 Puffs by mouth in [...] s:Asthma with severity to be determined,COPD, moderate ([facility]) TAKE 1 PUFF BY MOUTH 4 TIMES A DAY 12 g 12/31/2022 Active Sertraline HCl 25 MG Oral Tablet (Zoloft)Indications :Major depressive disorder with single episode, in partial remission ([facility]),HECTOR (generalized anxiety disorder) TAKE 1 TABLET BY MOUTH EVERY DAY IN THE MORNING 90 Tablet 12/31/2022 Active methIMAzole 5 MG Oral Tablet (Tapazole) TAKE 1 TABLET BY MOUTH EVERY DAY IN THE MORNING 90 Tablet 12/31/2022 Active Dicyclomine HCl 20 MG Oral Tablet (Bentyl)Indications :Chronic constipation TAKE 1 TABLET BY MOUTH EVERY DAY 90 Tablet 2 12/31/2022 Active Glimepiride 2 MG Oral Tablet (Amaryl) TAKE 1 TABLET BY MOUTH EVERY DAY WITH BREAKFAST 90 Tablet 12/31/2022 Active Metoprolol Succinate ER 25 MG Oral Tablet Extended Release 24 Hour (Toprol XL) Take one tablet in AM and 1/2 table in the evening. 45 Tablet 6 01/03/2023 Active Vitamin D3 50 MCG (1999 UT) Oral Capsule Take 1 Capsule by mouth in the morning. 90 Capsule 01/27/2023 Active Magnesium Chloride 64 MG Oral Tablet Delayed Release (Mag-64) Take 1 Tablet by mouth in the morning. 90 Tablet 01/27/2023 Active OneTouch Verio In Vitro Strip (Glucose Blood)Indications:T ype 2 diabetes mellitus with hemoglobin A1c goal of less than 7.5% ([facility]) Test blood sugar once daily. E11.9 100 Strip 03/05/2023 Active HYDROcodone-Acetami nophen 5-325 MG Oral [...] as of this encounter (statuses as of 04/02/2023) Active Problems Problem Noted Date Major depressive [...] as of this encounter (statuses as of 04/02/2023) Resolved Problems Problem Noted Date Resolved Date Type 2 diabetes mellitus wit h stage 3a chronic kidney disease 05/21/2021 11/19/2021 Overview: Per CKD protocol Asthma in remission 01/09/2021 03/05/2021 Asthma, mild persistent 01/09/2021 03/05/20 21 Asthma, moderate persistent 01/09/2021 05/01/2021 Asthma, severe persistent 01/09/20212020 Intermittent asthma with [...] Hypoxemia 10/08/2011 10/30/2015 Genetic Sleep Disorder Research Other*[id number] 07/25/2011 05/15/2016 COPD, moderate 07/19/2011 07/28/2019 Overview: [...] as of this encounter (statuses as of 04/02/2023) Immunizations Name Administration Dates Next Due COVID-19 mRNA, LNP-s, No Pre serve, 2-Dose Series (Pfizer) 08/21/2021,12/22/2020,2020 COVID-19, LNP-s, No Preserve , Tyler-sucrose, Ages 12+ (Pfizer) 04/16/2022 Hepatitis B, 20+ yrs 10/01/2017,04/21/2017,03/20 Pneumococcal Conjugate Vacc, 13 Valent (Prevnar) 03/28/2015 Pneumococcal Conjugate Vacci ne, 20-valent ([id number]) 04/01/2022 Pneumococcal Polysaccharide PPV23 (Pneumovax) 05/21/2006 Seasonal [...] Visit Internal Medicine Marcela Pinto MD [address] [facility] [place] [address] 09/18/2023 Office Visit Cardiology Hammad Lopez, [address] [place] [address] Pending Results Name Type Priority Associated Diagnoses Date /Time BASIC METABOLIC PANEL Lab Routine Type 2 diabetes mellitus with hemoglobin A1c goal of less than 7.5% ([facility]) 04/02/2023 2:35 PM EDT ALBUMIN / CREATININE RATIO, URINE Lab Routine HTN, goal below 140/90 04/02/2023 2:35 PM EDT Health Maintenance Due Date Last Done Comments Zoster Vaccines (3 of 3) 05/27/2022 04/01/2022, 06/14 COVID-19 Vaccine (5 - Booster for Pfizer series) 06/11/2022 04/16/2022, 08/21/2021, 12/22/2020, Additional history exists Albumin/Creatinine Ratio 02/19/2023 022, 07/09/2019, 07/27/2018, Additional history exists DIABETES-EYE EXAM 03/08/2023 03/08/2022, , 08/07/2020, Additional history exists HbA1c 05/24/2023 11/24/2022, 05/14, 02/19/2022, Additional history exists GFR 07/23/2023 01/21/2023, 12/11, 12/11/2022, Additional history exists CKD PHOS USE SMARTSET 19858 08/05/202307/14, 02/19/2022, 03/09/2021, Additional history exists DIABETES-FOOT EXAM 10/10/2023 10/10/2022, 0 11/19/2021, 12/21/2020, Additional history exists Depression Screening, Annual for Pts 12 and Over 10/10/2023 10/10/2022 O2 ASSESSMENT COMPLETED IN PAST YEAR FOR COPD 11/24/2023 11/24/2022 CKD HGB USE SMARTSET 25080 01/22/202401/21, 01/21/2023, 12/24/2022, Additional history exists DXA Scan 08/08/2025 08/08/2020, [...] Diagnoses Diagnosis Type 2 diabetes mellitus with hemoglobin A1c goal of less than 7.5% ([facility]) HTN, goal below 140/90 Unspecified essential hypertension [...] Advance Directives occurred with: Patient Care Teams Veneer Gluer Relationship Specialty Start Date End Date Marcela Pinto MD [address] [facility] [place] [address] PCP - General Internal Medicine 08/04/14 documented as of this encounter
--- OUTSIDE RECORDS SUMMARY | 2023-06-18 02:15 | External Medical Summary | Summary of Care ---
Author Name Unknown Organization [facility] Address [address] [place] [address] Phone [phone] Care Team Providers Care Electromedical Equipment Repairer Name Role Phone Marcela Pinto MD Primary Care Provider + Reason for Visit * Reason Comments Joint Pain Right shoulder * Evaluate & Treat - Unlimited Visits (Within 30 days (routine)) - Authorized Specialty Diagnoses / Procedures Referred By Miguel Angel roe Referred To Contact Orthopaedic Surgery / Orthopedics Diagnoses Pain in joint of right shoulder Marcela Pinto MD [address] [place] [address] Referral ID Status Reason Start Date Expiration Date Visits Requested Visits Authorized [id number] Authorized Specialty Services Required 01/23/[phone] Encounter Details Date Type Department Care Team Description 04/02/2023 Office Visit Orthopaedics [facility] [address] [place] [address] Eliezer Gifford, [address] [place] [address] Primary osteoarthritis of right shoulder*; Nontraumatic complete tear of right rotator cuff Allergies Active Allergy Reactions Severity Noted Date Comments Valsartan 07/10/2010 Enalapril 05/21/2006 Escitalopram Oxalate Nausea/vomiting 10/11/2009 Nauseated Iodinated Contrast Media Nausea/vomiting 2009 IV Contrast Iodine Hives 12/18/2009 IV Contrast [place] Oil-Black Currant-Vit E 07/10/2010 Verapamil 03/21/2004 Bupropion Hcl 10/30/2009 Makes pt sick in the stomach documented as of this encounter (statuses as of 04/03/2023) Medications Medication Sig Dispensed Refills Start Date [...] Respimat 1.25 MCG/ACT Inhalation Aerosol Solution (Tiotropium [place] Monohydrate) Inhale 2 Puffs by mouth [...] 180 days 1 Each 1 12/24/2022 Active Ipratropium-Albuter ol 20-100 MCG/ACT Inhalation Aerosol Solution (Combivent Respimat)Indication s:Asthma with severity to be determined,COPD, moderate ([facility]) TAKE 1 PUFF BY MOUTH 4 TIMES A DAY 12 g 1 12/31/2022 Active Sertraline HCl 25 MG Oral Tablet (Zoloft)Indications :Major depressive disorder with single episode, in partial remission ([facility]),HECTOR (generalized anxiety disorder) TAKE 1 [...] A1c goal of less than 7.5% ([facility]) Test blood sugar once daily. [...] times daily 90 Capsule 5 03/27/2023 Active Hospital, Clinic, or Other Facility Administered Medication Ordered Dose Route Frequency Start Date End Date Status lidocaine 1% 1 mL - triamcinolone acetonide 40 mg/mL 1 mL inj 2 mLIndications:Primary osteoarthritis of right shoulder,Nontraumatic complete tear of right rotator cuff 2 mL IJ ONCE 04/02/2023 04/02/2023 Ended documented as of this encounter (statuses as of 04/03/2023) Active Problems Problem Noted Date Major depressive [...] Chronic hypoxemic respiratory failure Paroxysmal atrial fibrillation Morbid obesity with BMI of 40.0-44.9, ad [...] as of this encounter (statuses as of 04/03/2023) Resolved Problems Problem Noted Date Resolved Date Type 2 diabetes mellitus wit h stage 3a chronic kidney disease 05/21/2021 11/19/2021 Overview: Per CKD protocol Asthma in remission 01/09/2021 03/05/2021 Asthma, mild persistent 01/09/2021 03/05/20 21 Asthma, moderate persistent 01/09/2021 052 01/2021 Asthma, severe persistent 01/09/20212020 Intermittent asthma [...] Hypoxemia 10/08/2011 10/30/2015 Genetic Sleep Disorder Research Other*[id number] 07/25/2011 05/15/2016 COPD, moderate 07/19/2011 07/28/2019 Overview: [...] as of this encounter (statuses as of 04/03/2023) Immunizations Name Administration Dates Next Due COVID-19 mRNA, LNP-s, No Pre serve, 2-Dose Series ([employer]) 08/21/2021,12/22/2020,2020 COVID-19, LNP-s, No Preserve , Tyler-sucrose, Ages 12+ (Pfizer) 04/16/2022 Hepatitis B, 20+ yrs 10/01/2017,04/21/2017,03/20 Pneumococcal Conjugate Vacc, 13 Valent (Prevnar) 03/28/2015 Pneumococcal Conjugate Vacci ne, 20-valent ([id number]) 04/01/2022 Pneumococcal Polysaccharide PPV23 (Pneumovax) 05/21/2006 Seasonal [...] as of this encounter Progress Notes * Eliezer Gifford, DO - 04/02/2023 11:30 AM EDT Nina Harrington [id number] Nina Harrington is a 82 year old female who presents for f/u to [facility] for right shoulder pain Nina Harrington is here unaccompanied Date of Injury: no injury, pain since early 2021 getting worse, more pain at night Sport or Occupation: retired Handedness: right History: seen by me And feels GH jt inj help 50% TODAY: would like to try nerve block Previous Surgery / Subluxation / dislocation: no Past Medical History: Diagnosis Date ACEI/ARB contraindicated Asthma Carpal tunnel syndrome DM type 2, goal: symptom mgmt (HCC) Generalized osteoarthritis HTN, goal below 140/90 Mixed dyslipidemia Current Outpatient Medications Medication Sig Dispense Refill oxygen GAS Use 2 L/min(Oxygen) as directed daily. and 4 L/min at night. Promethazine HCl 25 MG Oral Tablet (Phenergan) TAKE 1 TABLET BY MOUTH EVERY 6 HOURS NEEDED FOR NAUSEA 60 Tablet 2 Alum & Mag Hydroxide-Simeth 400-400-40 MG/5ML Oral Suspension (Mi-Acid II) Take 30 mL by mouth every 4 hours as needed for Indigestion. 355 mL 0 Acetaminophen 500 MG Oral Tablet (Tylenol) 2 caps every 8 hours for 3 days, then 1 cap every 4 hours as needed for pain. Do not exceed 3000mg acetaminophen (Tylenol) every 24 hours. 1 Tablet 0 Brinzolamide 1 % Ophthalmic Suspension (Azopt) INSTILL 1 DROP BY OPHTHALMIC ROUTE 2 TIMES EVERYDAY INTO BOTH EYES 10 mL 4 Aspirin 81 MG Oral Tablet Delayed Release Take 1 Tablet by mouth in the morning. 100 Tablet 0 Brinzolamide 1 % Ophthalmic Suspension (Azopt) INSTILL 1 DROP BY OPHTHALMIC ROUTE 2 TIMES EVERYDAY INTO BOTH EYES (Patient not taking: Reported on 12/24/2022) 10 mL 4 Lumigan 0.01 % Ophthalmic Solution (Bimatoprost) INSTILL 1 DROP BY TOPICAL ROUTE EVERY BEDTIME 3 mL 4 One Daily Multivitamin Women Oral Tablet one pill each day 30 Tablet 0 Polyethylene Glycol 3350 17 GM Oral Packet (Miralax) Take 1 Packet by mouth 2 times a day as needed for Constipation. 60 Each 0 Spiriva Respimat 1.25 MCG/ACT Inhalation Aerosol Solution (Tiotropium [place] Monohydrate) Inhale 2 Puffs by mouth in the morning. 4 g 0 Ventolin HFA 108 (90 Base) MCG/ACT Inhalation Aerosol Solution Inhale 2 Puffs by mouth in the morning and 2 Puffs before bedtime. 18 g 1 Atorvastatin Calcium 40 MG Oral Tablet (Lipitor) Take 1 Tablet by mouth in the morning. 90 Tablet 4 Furosemide 40 MG Oral Tablet (Lasix) Take 1 Tablet by mouth in the morning and 1 Tablet before bedtime. 180 Tablet 3 Spironolactone 25 MG Oral Tablet (Aldactone) Take 0.5 Tablets by mouth once a day on Friday, Friday, and Friday only. 45 Tablet 3 Potassium Chloride Annalisa ER 20 MEQ Oral Tablet Extended Release (Klor-Con M20) Take 1 Tablet by mouth in the morning. 90 Tablet 3 Ondansetron 8 MG Oral Tablet Disintegrating (Zofran) DISSOLVE 1 TABLET ON TONGUE EVERY 8 HOURS NEEDED FOR NAUSEA 60 Tablet 5 Zafirlukast 20 MG Oral Tablet (Accolate) Take 1 Tablet by mouth in the morning. 90 Tablet 3 Ventolin HFA 108 (90 Base) MCG/ACT Inhalation Aerosol Solution Inhale 2 Puffs by mouth in the morning and 2 Puffs before bedtime. (Patient not taking: Reported on 12/24/2022) 18 g 0 Albuterol Sulfate (2.5 MG/3ML) 0.083% Inhalation Nebulization Solution (Proventil) USE ONE NEBULIZER TREATMENT TWICE A DAY DIRECTED FOR WORSENING ASTHMA. J45.909, J44.9 225 mL 1 Docusate Sodium 100 MG Oral Capsule (Colace) Take 1 Capsule by mouth in the morning. 90 Capsule0 Omeprazole 20 MG Oral Capsule Delayed Release (PriLOSEC) Take 1 Capsule by mouth in the morningand 1 Capsule before bedtime. 180 Capsule 3 MEDICAL INSTRUCTIONS Use as directed. Nursing, PT/OT DX: ABDOMINAL INCISION DEHISENCE, CHF, HTN, COPD, CHRONIC RESPIRATORY FAILURE 1 Each 1 Ferrous Sulfate 325 (65 Fe) MG Oral Tablet (Feosol) Take 1 Tablet by mouth 2 times a day with morning and evening meals. 60 Tablet 1 Zoster Vac Recomb Adjuvanted 50 MCG/0.5ML Intramuscular Suspension Reconstituted (Shingrix) Inject 0.5 mL into a large muscle now and repeat dose in 60 to 180 days 1 Each 1 Ipratropium-Albuterol 20-100 MCG/ACT Inhalation Aerosol Solution (Combivent Respimat) TAKE 1 PUFF BY MOUTH 4 TIMES A DAY 12 g 1 Sertraline HCl 25 MG Oral Tablet (Zoloft) TAKE 1 TABLET BY MOUTH EVERY DAY IN THE MORNING 90 Tablet 1 methIMAzole 5 MG Oral Tablet (Tapazole) TAKE 1 TABLET BY MOUTH EVERY DAY IN THE MORNING 90 Tablet 1 Dicyclomine HCl 20 MG Oral Tablet (Bentyl) TAKE 1 TABLET BY MOUTH EVERY DAY 90 Tablet 2 Glimepiride 2 MG Oral Tablet (Amaryl) TAKE 1 TABLET BY MOUTH EVERY DAY WITH BREAKFAST 90 Tablet1 Metoprolol Succinate ER 25 MG Oral Tablet Extended Release 24 Hour (Toprol XL) Take one tablet in AM and 1/2 table in the evening. 45 Tablet 6 Vitamin D3 50 MCG (1999 UT) Oral Capsule Take 1 Capsule by mouth in the morning. 90 Capsule 1 Magnesium Chloride 64 MG Oral Tablet Delayed Release (Mag-64) Take 1 Tablet by mouth in the morning. 90 Tablet 1 OneTouch Verio In Vitro Strip (Glucose Blood) Test blood sugar once daily. E11.9 100 Strip 5 HYDROcodone-Acetaminophen 5-325 MG Oral Tablet Take 1 Tablet by mouth every 6 hours as needed for Pain, Mild. 120 Tablet 0 Gabapentin 100 MG Oral Capsule (Neurontin) One pill once daily for 2 days then twice daily for 2 days then continue one pill three times daily 90 Capsule 5 No current facility-administered medications for this visit. Hemoglobin AIC Results: Lab Results Component Value Date/Time HEMOGLOBIN A1C - [facility] 6.2 (H) 11/24/2022 06:57 AM HEMOGLOBIN A1C - [facility] 6.8 (H) 06/07/2022 06:28 AM HEMOGLOBIN A1C - [facility] 6.8 (H) 02/19/2022 04:04 PM HEMOGLOBIN A1C - [facility] 6.6 (H) 08/26/2019 02:55 PM HEMOGLOBIN A1C - [facility] 6.8 (H) 07/27/2018 11:32 AM HEMOGLOBIN A1C - [facility] 6.2 01/14/2018 12:03 PM Physical Exam General: in no acute distress Mood and Affect: normal Gait and Station: significantly antalgic, here in wheelchair and using O2 Assessment and Plan: watch blood glucose, see procedure note f/u 3 months, nerve bloc done today Primary osteoarthritis of right shoulder (Primary) - lidocaine 1% 1 mL - triamcinolone acetonide 40 mg/mL 1 mL inj 2 mL - POINT OF CARE US MAJOR JOINT INJECTION, ORTHO Nontraumatic complete tear of right rotator cuff - lidocaine 1% 1 mL - triamcinolone acetonide 40 mg/mL 1 mL inj 2 mL - POINT OF CARE US MAJOR JOINT INJECTION, ORTHO Eliezer Gifford DO Primary Care Sports Medicine Orthopaedics [address] [place] [address] Procedure note (shoulder suprascapular nerve) on right: pt moved several times during procedure andcould not get onto exam table Time out: Prior to injection, a time out was called to confirm the administration of appropriate medicine, patient name, procedure and confirm to the best of our ability and knowledge the presence of any necessary risks and benefits. Patient verbalizes understanding. Ultrasound utilized to guide injection Ultrasound required due to: patient size (obese) Sterile techinique applied. Skin sterilized with betadine and cleaned with alcohol swab. Injected using 3.5 inch, 22 gauge needle. Injected with 4cc lidocaine 1% 1 mL - triamcinolone acetonide 40 mg/mL 1 mL inj 2 mL Patient tolerated procedure with no significant bleeding or adverse reaction. Patient instructed to call or return to clinic for fever or warmth and redness at injection site for potential infection. Patient also advised as to potential for steroid flare reaction including increased pain and redness at injection site which should be treated with ice and resolve within 24 hours. Eliezer Gifford DO documented in this encounter Nursing Notes * Shanita Ramos LPN - 04/02/2023 11:27 AM EDT Follow up Patient Follow up: Shoulder Side: Right Date of last visit: 12/23/22 Improvement since last office visit: percent. Prior Treatment: Steroid injection 12/23/22 , PT Here for Test Results: NO Goals for this appointment: Next step in treatment options. Shanita CAMARENA documented in this encounter Plan of Treatment Upcoming Encounters Date Type Specialty Care Team Description 07/10/2023 Office Visit Internal Medicine Marcela Pinto MD [address] [place] [address] 07/10/2023 Laboratory Laboratory [facility] [address] [place] [address] 09/18/2023 Office Visit Cardiology Hammad Lopez, DO [address] [place] [address] Scheduled Orders Name Type Priority Associated Diagnoses Orde r Schedule POINT OF CARE US MAJOR JOINT INJECTION, ORTHO Medical Imaging Routine Primary osteoarthritis of right shoulder Nontraumatic complete tear of right rotator cuff Ordered: 04/02/2023 Health Maintenance Due Date Last Done Comments Zoster Vaccines (3 of 3) 05/27/2022 04/01/2022, 06/14 COVID-19 Vaccine (5 - Booster for Pfizer series) 06/11/2022 04/16/2022, 08/21/2021, 12/22/2020, Additional history exists DIABETES-EYE EXAM 03/08/2023 03/08/2022, , 08/07/2020, Additional history exists HbA1c 05/24/2023 11/24/2022, 05/14, 02/19/2022, Additional history exists CKD PHOS USE SMARTSET 97519 08/05/202307/14, 02/19/2022, 03/09/2021, Additional history exists GFR 10/02/2023 04/02/2023, 04/10/2022, 12/24/2022, Additional history exists DIABETES-FOOT EXAM 10/10/2023 10/10/2022, 0 11/19/2021, 12/21/2020, Additional history exists Depression Screening, Annual for Pts 12 and Over 10/10/2023 10/10/2022 O2 ASSESSMENT COMPLETED IN PAST YEAR FOR COPD 11/24/2023 11/24/2022 CKD HGB USE SMARTSET 41278 01/22/202401/21, 01/21/2023, 12/24/2022, Additional history exists Albumin/Creatinine Ratio 04/02/2024 023, [...] as of this encounter Visit Diagnoses Diagnosis Primary osteoarthritis of right shoulder- Primary Primary localized osteoarthrosis, shoulder region Nontraumatic complete tear of right rotator cuff documented in this encounter Administered Medications Inactive Administered Medications - up to 3 most recent administrations Medication Order MAR Action Action Date Dose Rate Site lidocaine 1% 1 mL - triamcinolone acetonide 40 mg/mL 1 mL inj 2 mL 2 mL, Injection, ONCE, On Fri04/02/23 at 1230, For 1 dose, Lidocaine 1% 1mL Triamcinolone Acetonide 40 mg/mL 1 mL (Final concentration = 20 mg/mL) REFRIGERATE and SHAKE WELL Given 04/02/2023 11:49 AM EDT 2 mL Shoulder Right documented in this encounter Advance Directives Latest [...] Advance Directives occurred with: Patient Care Teams Electromedical Equipment Repairer Relationship Specialty Start Date End Date Marcela Pinto MD [address] [place] [address], [place] [address] PCP - General Internal Medicine 08/04/14 documented as of this encounter
--- OUTSIDE RECORDS SUMMARY | 2023-06-18 02:15 | External Medical Summary | Summary of Care ---
Author Name Unknown Organization [facility] Address [address] [place] [address] Phone [phone] Care Team Providers Care Blueprint Machine Operator Name Role Phone Marcela Pinto MD Primary Care Provider + Encounter Details Date Type Department Care Team Description 04/09/2023 Dynamotor RepairerRecycling Manager Practice [facility] [address] [facility] [place] [address] Joanna Smith, RN Medical home patient encounter* Allergies Active Allergy Reactions Severity Noted Date Comments Valsartan 07/10/2010 Enalapril 05/21/2006 Escitalopram Oxalate Nausea/vomiting 10/11/2009 Nauseated Iodinated Contrast Media Nausea/vomiting 2009 IV Contrast Iodine Hives 12/18/2009 IV Contrast [place] Oil-Black Currant-Vit E 07/10/2010 Verapamil 03/21/2004 Bupropion Hcl 10/30/2009 Makes pt sick in the stomach documented as of this encounter (statuses as of 04/09/2023) Medications Medication Sig Dispensed Refills Start Date [...] Respimat 1.25 MCG/ACT Inhalation Aerosol Solution (Tiotropium [place] Monohydrate) Inhale 2 Puffs by mouth in [...] s:Asthma with severity to be determined,COPD, moderate ([facility]) TAKE 1 PUFF BY MOUTH 4 TIMES A DAY 12 g 1 12/31/2022 Active Sertraline HCl 25 MG Oral Tablet (Zoloft)Indications :Major depressive disorder with single episode, in partial remission ([facility]),HECTOR (generalized anxiety disorder) TAKE 1 TABLET [...] hemoglobin A1c goal of less than 7.5% ([facility]) Test blood sugar once daily. E11.9 [...] as of this encounter (statuses as of 04/09/2023) Active Problems Problem Noted Date Major depressive [...] as of this encounter (statuses as of 04/09/2023) Resolved Problems Problem Noted Date Resolved Date [...] Hypoxemia 10/08/2011 10/30/2015 Genetic Sleep Disorder Research Other*[id number] 07/25/2011 05/15/2016 COPD, moderate 07/19/2011 07/28/2019 Overview: [...] as of this encounter (statuses as of 04/09/2023) Immunizations Name Administration Dates Next Due COVID-19 mRNA, LNP-s, No Pre serve, 2-Dose Series ([employer]) 08/21/2021,12/22/2020,2020 COVID-19, LNP-s, No Preserve , Tyler-sucrose, Ages 12+ (Pfizer) 04/16/2022 Hepatitis B, 20+ yrs 10/01/2017,04/21/2017,03/20 Pneumococcal Conjugate Vacc, 13 Valent (Prevnar) 03/28/2015 Pneumococcal Conjugate Vacci ne, 20-valent ([id number]) 04/01/2022 Pneumococcal Polysaccharide PPV23 (Pneumovax) 05/21/2006 Seasonal [...] as of this encounter Progress Notes * Joanna Smith RN - 04/09/2023 2:03 PM EDT Dynamotor Repairer Progress Note: Date: 04/09/23 Assgned Patient Tier: 3 Connected with patient via telephone. Verified patient name/. Advised patient that call is beingrecorded for quality and training purposes. Assessment: Pt. noted the following: pt reports she is having some shoulder pain. She received a shot for this on 04/02 and states that it was helpful, but that it did not fully take the pain away. Pt I scheduledto be seen for nerve block in July. She was started on an increased dose of Gabapentin by Dr. Pinto at her last PCP appointment for this as well. Pt denies any SOB, swelling or chest pain at this time. Reviewed with pt red flags and provided pt with this CM's contact information again. Did you receive an alert for an annual wellness visit? No Is this call for a hospital, skilled nursing or rehab facility discharge to home? No Medication Reconciliation: Medication Reconciliation completed: yes Review of Current goals: Discussed the following patient-centered CM goals with the patient during this discussion: -Prevention: Prevent admission/readmission -Status: Completed no admissions for past 6 months. -SAFETY: Prevent falls or injuries -Status: On Track using walker. -*Personal Patient Goal: Remain safely at home -Status: On Track. COPD Patient: YES Pulse Ox: 98% CHF Patient: YES Reinforced fluid restriction and low sodium diet. CM Plan: Reviewed 3 Red Flags with patient. Advised to call CM with any of the following: Red Flag 1: weakness Red Flag 2: swelling in feet or ankles Red Flag 3: fevers or chills Remote Patient Monitoring: At this time, RPM not offered/considered for patient due to NA. Plan for Future Contacts: Plan to follow up 2-3 months to check progress on the following goals/needs: Health status. Planned contacts from the following parties will occur this week: Specialty Visit as additional contacts per workflow. Advancement/Closure Plan: Graduate patient to the next lower tier. Tier: 4 Patient provided CM contact information and encouraged to call with any changes in condition. SNP Member? No PCP Notified of enrollment in CM/HM program: Yes Is Provider in agreement with POC? Yes Joanna Smith RN Outpatient Case Management documented in this encounter Plan of Treatment Upcoming Encounters Date Type Specialty Care Team Description 07/10/2023 Office Visit Internal Medicine Marcela Pinto MD [address] [place] [address] 07/10/2023 Laboratory Laboratory [facility] [address] [place] [address] 07/14/2023 Office Visit Orthopedics Eliezer Gifford, DO [address] [place] [address] 09/18/2023 Office Visit Cardiology Hammad Lopez, [address] [place] [address] Health Maintenance Due Date Last Done Comments Zoster Vaccines (3 of 3) 05/27/2022 04/01/2022, 06/14 COVID-19 Vaccine (5 - Booster for Pfizer series) 06/11/2022 04/16/2022, 08/21/2021, 12/22/2020, Additional history exists HbA1c 05/24/2023 11/24/2022, 05/14, 02/19/2022, Additional history exists CKD PHOS USE SMARTSET 90019 08/05/202307/14, 02/19/2022, 03/09/2021, Additional history exists GFR 10/02/2023 04/02/2023, 01/11, 12/24/2022, Additional history exists DIABETES-FOOT EXAM 10/10/2023 10/10/2022, 0 11/19/2021, 12/21/2020, Additional history exists Depression Screening, Annual for Pts 12 and Over 10/10/2023 10/10/2022 O2 ASSESSMENT COMPLETED IN PAST YEAR FOR COPD 11/24/2023 11/24/2022 CKD HGB USE SMARTSET 52094 01/22/202401/21, 01/21/2023, 12/24/2022, Additional history exists DIABETES-EYE [...] as of this encounter Visit Diagnoses Diagnosis Medical home patient encounter- Primary Other specified examination documented in this encounter Advance Directives Latest [...] Advance Directives occurred with: Patient Care Teams Blueprint Machine Operator Relationship Specialty Start Date End Date Marcela Pinto MD [address] [place] [address] PCP - General Internal Medicine 08/04/14 documented as of this encounter
--- OUTSIDE RECORDS SUMMARY | 2023-06-18 02:15 | External Medical Summary | Summary of Care ---
Author Name Unknown Organization [facility] Address [address] [place] [address] Phone [phone] Care Team Providers Care Dive Superintendent Name Role Phone Marcela Pinto MD Primary Care Provider + Reason for Visit * Reason Onset Date Comments Test Results 04/03/2023 Encounter Details Date Type Department Care Team Description 04/03/2023 Telephone General Internal Medicine [facility] 200 [facility] [place] [address] Marcela Pinto MD 200 [facility] [place] [address] Test Results Allergies Active Allergy Reactions Severity Noted Date Comments Valsartan 07/10/2010 Enalapril 05/21/2006 Escitalopram Oxalate Nausea/vomiting 10/11/2009 Nauseated Iodinated Contrast Media Nausea/vomiting 2009 IV Contrast Iodine Hives 12/18/2009 IV Contrast [place] Oil-Black Currant-Vit E 07/10/2010 Verapamil 03/21/2004 Bupropion [...] Respimat 1.25 MCG/ACT Inhalation Aerosol Solution (Tiotropium [place] Monohydrate) Inhale 2 Puffs by mouth in [...] s:Asthma with severity to be determined,COPD, moderate ([facility]) TAKE 1 PUFF BY MOUTH 4 TIMES A DAY 12 g 12/31/2022 Active Sertraline HCl 25 MG Oral Tablet (Zoloft)Indications :Major depressive disorder with single episode, in partial remission ([facility]),HECTOR (generalized anxiety disorder) TAKE 1 TABLET BY [...] 01/03/2023 Active Vitamin D3 50 MCG (1999 [place]) Oral Capsule Take 1 Capsule by mouth in the morning. 90 Capsule 01/27/2023 Active Magnesium Chloride 64 MG Oral Tablet Delayed Release (Mag-64) Take 1 Tablet by mouth in the morning. 90 Tablet 01/27/2023 Active Elda Sanches In Vitro Strip (Glucose Blood)Indications:T ype 2 diabetes mellitus with hemoglobin A1c goal of less than 7.5% ([facility]) Test blood sugar once daily. E11.9 100 [...] mild persistent 01/09/2021 03/05/20 Asthma, moderate persistent 01/09/2021/01/2021 Asthma, severe persistent 01/09/20212020 Intermittent asthma with [...] Hypoxemia 10/08/2011 10/30/2015 Genetic Sleep Disorder Research Other*[id number] 07/25/2011 05/15/2016 COPD, moderate 07/19/2011 07/28/2019 Overview: [...] mRNA, LNP-s, No Pre serve, 2-Dose Series ([employer]) 08/21/2021,12/22/2020,2020 COVID-19, LNP-s, No Preserve , Tyler-sucrose, Ages 12+ (Pfizer) 04/16/2022 Hepatitis B, 20+ yrs 10/01/2017,04/21/2017,03/20 Pneumococcal Conjugate Vacc, 13 Valent (Prevnar) 03/28/2015 Pneumococcal Conjugate Vacci ne, 20-valent ([id number]) 04/01/2022 Pneumococcal Polysaccharide PPV23 (Pneumovax) 05/21/2006 Seasonal [...] encounter Miscellaneous Notes * Telephone Encounter - Donovan Lutz CMA - 04/03/2023 2:35 PM EDT Patient aware and verbalized understanding * Telephone Encounter - Donovan Lutz CMA - 04/03/2023 2:33 PM EDT ----- Message from Marcela Pinto MD sent at 04/03/2023 1:22 PM EDT ----- Labs shows low but stable kidney tests. Potassium is slightly high. Advise hydration, cut down K rich diet. Repeat BMP in 5 days from now an dhydrate well before that lab. documented in this encounter Plan of Treatment Upcoming Encounters Date Type Specialty Care Team Description 07/10/2023 Office Visit Internal Medicine Marcela Pinto MD [address] [place] [address] 07/10/2023 Laboratory Laboratory Heather [address] [place] [address] 09/18/2023 Office Visit Cardiology Hammad Lopez, [address] [place] [address] Health Maintenance Due Date Last Done Comments Zoster Vaccines (3 of 3) 05/27/2022 04/01/2022, 06/14 COVID-19 Vaccine (5 - Booster for Pfizer series) 06/11/2022 04/16/2022, 08/21/2021, 12/22/2020, Additional history exists DIABETES-EYE EXAM 03/08/2023 03/08/2022, , 08/07/2020, Additional history exists HbA1c 05/24/2023 11/24/2022, 05/14, 02/19/2022, Additional history exists CKD PHOS USE SMARTSET 25590 08/05/202307/14, 02/19/2022, 03/09/2021, Additional history exists GFR 10/02/2023 04/02/2023, 01/11, 12/24/2022, Additional history exists DIABETES-FOOT EXAM 10/10/2023 10/10/2022, 0 11/19/2021, 12/21/2020, Additional history exists Depression Screening, Annual for Pts 12 and Over 10/10/2023 10/10/2022 O2 ASSESSMENT COMPLETED IN PAST YEAR FOR COPD 11/24/2023 11/24/2022 CKD HGB USE SMARTSET 28498 01/22/202401/21, 01/21/2023, 12/24/2022, Additional history exists Albumin/Creatinine [...] Advance Directives occurred with: Patient Care Teams Dive Superintendent Relationship Specialty Start Date End Date Marcela Pinto MD 200 [facility], [place] [id number] PCP - General Internal Medicine 08/04/14 documented as of this encounter
--- OUTSIDE RECORDS SUMMARY | 2023-06-18 02:15 | External Medical Summary | Summary of Care ---
Author Name Unknown Organization [facility] Address [address] [place] [address] Phone [phone] Care Team Providers Care Piano Stringer Name Role Phone Marcela Pinto MD Primary Care Provider + Encounter Details Date Type Department Care Team Description 04/09/2023 Orders Only General Internal Medicine [facility] 200 [place] [address] Marcela Pinto MD 200 [place] [address] Allergies Active Allergy Reactions Severity Noted Date Comments Valsartan 07/10/2010 Enalapril 05/21/2006 Escitalopram Oxalate Nausea/vomiting 10/11/2009 Nauseated Iodinated Contrast Media Nausea/vomiting 2009 IV Contrast Iodine Hives 12/18/2009 IV Contrast [place] Oil-Black Currant-Vit E 07/10/2010 Verapamil 03/21/2004 Bupropion [...] Respimat 1.25 MCG/ACT Inhalation Aerosol Solution (Tiotropium [place] Monohydrate) Inhale 2 Puffs by mouth in [...] s:Asthma with severity to be determined,COPD, moderate ([facility]) TAKE 1 PUFF BY MOUTH 4 TIMES A DAY 12 g 1 12/31/2022 Active Sertraline HCl 25 MG Oral Tablet (Zoloft)Indications :Major depressive disorder with single episode, in partial remission ([facility]),HECTOR (generalized anxiety disorder) TAKE 1 [...] 6 01/03/2023 Active Vitamin D3 50 MCG (2000 [place]) Oral Capsule Take 1 Capsule by mouth in the morning. 90 Capsule 01/27/2023 Active Magnesium Chloride 64 MG Oral Tablet Delayed Release (Mag-64) Take 1 Tablet by mouth in the morning. 90 Tablet 1 01/27/2023 Active OneTouch Verio In Vitro Strip (Glucose Blood)Indications:T ype 2 diabetes mellitus with hemoglobin A1c goal of less than 7.5% ([facility]) Test blood sugar once daily. [...] persistent 01/09/2021 03/05/20 Asthma, moderate persistent 01/09/2021 05/01/2021 Asthma, severe [...] Hypoxemia 10/08/2011 10/30/2015 Genetic Sleep Disorder Research Other*[id number] 07/25/2011 05/15/2016 COPD, moderate 07/19/2011 07/28/2019 Overview: [...] mRNA, LNP-s, No Pre serve, 2-Dose Series ([employer]) 08/21/2021,12/22/2020,2020 COVID-19, LNP-s, No Preserve , Tyler-sucrose, Ages 12+ (Pfizer) 04/16/2022 Hepatitis B, 20+ yrs 10/01/2017,04/21/2017,03/20 Pneumococcal Conjugate Vacc, 13 Valent (Prevnar) 03/28/2015 Pneumococcal Conjugate Vacci ne, 20-valent ([id number]) 04/01/2022 Pneumococcal Polysaccharide PPV23 (Pneumovax) 05/21/2006 Seasonal [...] Internal Medicine Marcela Pinto MD [address] [place] [address] 07/10/2023 Laboratory Laboratory Moon Romero 200 [facility] [place] [address] 07/14/2023 Office Visit Orthopedics Eliezer Gifford, DO [address] [place] [address] 09/18/2023 Office Visit Cardiology Hammad Lopez, DO [address] [place] [address] Health Maintenance Due Date Last Done Comments Zoster Vaccines (3 of 3) 05/27/2022 04/01/2022, 06/14 COVID-19 Vaccine (5 - Booster for Pfizer series) 06/11/2022 04/16/2022, 08/21/2021, 12/22/2020, Additional history exists HbA1c 05/24/2023 11/24/2022, 05/14, 02/19/2022, Additional history exists CKD PHOS USE SMARTSET 40717 08/05/202307/14, 02/19/2022, 03/09/2021, Additional history exists GFR 10/02/2023 04/02/2023, 01/11, 12/24/2022, Additional history exists DIABETES-FOOT EXAM 10/10/2023 10/10/2022, 0 11/19/2021, 12/21/2020, Additional history exists Depression Screening, Annual for Pts 12 and Over 10/10/2023 10/10/2022 O2 ASSESSMENT COMPLETED IN PAST YEAR FOR COPD 11/24/2023 11/24/2022 CKD HGB USE SMARTSET 52211 01/22/202401/21, 01/21/2023, 12/24/2022, Additional history exists DIABETES-EYE [...] Not on filedocumented as of this encounter Procedures Procedure Name Priority Date/Time Associated Diagnosis Comments DIABETIC EYE EXAM Routine 01/23/2023 documented in this encounter Results * DIABETIC EYE EXAM (01/23/2023) 01/23/2023 Mohinder Gomez OD OTHER OUTSIDE LAB (SEE SCANNED REPORT) documented in this encounter Advance Directives Latest [...] Advance Directives occurred with: Patient Care Teams Piano Stringer Relationship Specialty Start Date End Date Marcela Pinto MD 200 [place] [address] PCP - General Internal Medicine 08/04/14 documented as of this encounter
--- OUTSIDE RECORDS SUMMARY | 2023-06-18 02:15 | External Medical Summary | Summary of Care ---
Author Name Unknown Organization [facility] Address [address] [place] [address] Phone [phone] Care Team Providers Care Bookmobile Librarian Name Role Phone Marcela Pinto MD Primary Care Provider + Encounter Details Date Type Department Care Team Description 04/08/2023 Telephone Orthopaedics [facility] [address] [place] [address] Eliezer Gifford, [address] [facility] [place] [address] Allergies Active Allergy Reactions Severity Noted Date Comments Valsartan 07/10/2010 Enalapril 05/21/2006 Escitalopram Oxalate Nausea/vomiting 10/11/2009 Nauseated Iodinated Contrast Media Nausea/vomiting 2009 IV Contrast Iodine Hives 12/18/2009 IV Contrast [place] Oil-Black Currant-Vit E 07/10/2010 Verapamil 03/21/2004 Bupropion Hcl 10/30/2009 Makes pt sick in the stomach documented as of this encounter (statuses as of 04/10/2023) Medications Medication Sig Dispensed Refills Start Date [...] Respimat 1.25 MCG/ACT Inhalation Aerosol Solution (Tiotropium [place] Monohydrate) Inhale 2 Puffs by mouth in [...] s:Asthma with severity to be determined,COPD, moderate ([facility]) TAKE 1 PUFF BY MOUTH 4 TIMES A DAY 12 g 1 12/31/2022 Active Sertraline HCl 25 MG Oral Tablet (Zoloft)Indications :Major depressive disorder with single episode, in partial remission ([facility]),HECTOR (generalized anxiety disorder) TAKE 1 TABLET [...] hemoglobin A1c goal of less than 7.5% ([facility]) Test blood sugar once daily. E11.9 [...] as of this encounter (statuses as of 04/10/2023) Active Problems Problem Noted Date Major depressive [...] as of this encounter (statuses as of 04/10/2023) Resolved Problems Problem Noted Date Resolved Date [...] Hypoxemia 10/08/2011 10/30/2015 Genetic Sleep Disorder Research Other*[id number] 07/25/2011 05/15/2016 COPD, moderate 07/19/2011 07/28/2019 Overview: [...] as of this encounter (statuses as of 04/10/2023) Immunizations Name Administration Dates Next Due COVID-19 mRNA, LNP-s, No Pre serve, 2-Dose Series ([employer]) 08/21/2021,12/22/2020,2020 COVID-19, LNP-s, No Preserve , Tyler-sucrose, Ages 12+ (Pfizer) 04/16/2022 Hepatitis B, 20+ yrs 10/01/2017,04/21/2017,03/20 Pneumococcal Conjugate Vacc, 13 Valent (Prevnar) 03/28/2015 Pneumococcal Conjugate Vacci ne, 20-valent ([id number]) 04/01/2022 Pneumococcal Polysaccharide PPV23 (Pneumovax) 05/21/2006 Seasonal [...] Miscellaneous Notes * Telephone Encounter - JORDAN Beaulieu - 04/09/2023 8:14 AM EDT Patient scheduled. * Telephone Encounter - JORDAN Beaulieu - 04/08/2023 3:27 PM EDT Patient calling in to give update on injection from 04/02. Patient stated her right shoulder is still painful but not as bad. Patient requesting a return call. Thank you. documented in this encounter Plan of Treatment Upcoming Encounters Date Type Specialty Care Team Description 07/10/2023 Office Visit Internal Medicine Marcela Pinto MD [address] [facility] [place] [address] 07/10/2023 Laboratory Laboratory Heather, [facility] [address] [place] [address] 07/14/2023 Office Visit Orthopedics Eliezer Gifford, DO [address] [place] [address] 09/18/2023 Office Visit Cardiology Hammad Lopez, DO [address] [place] [address] Health Maintenance Due Date Last Done Comments Zoster Vaccines (3 of 3) 05/27/2022 04/01/2022, 06/14 COVID-19 Vaccine (5 - Booster for Pfizer series) 06/11/2022 04/16/2022, 08/21/2021, 12/22/2020, Additional history exists HbA1c 05/24/2023 11/24/2022, 05/14, 02/19/2022, Additional history exists CKD PHOS USE SMARTSET 08517 08/05/202307/14, 02/19/2022, 03/09/2021, Additional history exists GFR 10/02/2023 04/02/2023, 01/11, 12/24/2022, Additional history exists DIABETES-FOOT EXAM 10/10/2023 10/10/2022, 0 11/19/2021, 12/21/2020, Additional history exists Depression Screening, Annual for Pts 12 and Over 10/10/2023 10/10/2022 O2 ASSESSMENT COMPLETED IN PAST YEAR FOR COPD 11/24/2023 11/24/2022 CKD HGB USE SMARTSET 04129 01/22/202401/21, 01/21/2023, 12/24/2022, Additional history exists DIABETES-EYE [...] Advance Directives occurred with: Patient Care Teams Bookmobile Librarian Relationship Specialty Start Date End Date Marcela Pinto MD 200 [facility] [place] [address] PCP - General Internal Medicine 08/04/14 documented as of this encounter
--- OUTSIDE RECORDS SUMMARY | 2023-06-18 02:15 | External Medical Summary | Summary of Care ---
Author Name Unknown Organization [facility] Address [address] [place] [address] Phone [phone] Care Team Providers Care Systematic Theology Professor Name Role Phone Marcela Pinto MD Primary Care Provider + Encounter Details Date Type Department Care Team Description 04/03/2023 Orders Only General Internal Medicine [facility] 200 [place] [address] Marcela Pinto MD 200 [place] [address] Type 2 diabetes mellitus with hemoglobin A1c goal of less than 7.5% ([facility])* Allergies Active Allergy Reactions Severity Noted Date Comments Valsartan 07/10/2010 Enalapril 05/21/2006 Escitalopram Oxalate Nausea/vomiting 10/11/2009 Nauseated Iodinated Contrast Media Nausea/vomiting 2009 IV Contrast Iodine Hives 12/18/2009 IV Contrast [place] Oil-Black Currant-Vit E 07/10/2010 Verapamil 03/21/2004 Bupropion [...] Respimat 1.25 MCG/ACT Inhalation Aerosol Solution (Tiotropium [place] Monohydrate) Inhale 2 Puffs by mouth in [...] the morning. 90 Tablet 01/27/2023 Active OneTouch Vermichelle In Vitro Strip (Glucose Blood)Indications:T ype [...] Hypoxemia 10/08/2011 10/30/2015 Genetic Sleep Disorder Research Other*[id number] 07/25/2011 05/15/2016 COPD, moderate 07/19/2011 07/28/2019 Overview: [...] mRNA, LNP-s, No Pre serve, 2-Dose Series ([employer]) 08/21/2021,12/22/2020,2020 COVID-19, LNP-s, No Preserve , Tyler-sucrose, Ages 12+ (Pfizer) 04/16/2022 Hepatitis B, 20+ yrs 10/01/2017,04/21/2017,03/20 Pneumococcal Conjugate Vacc, 13 Valent (Prevnar) 03/28/2015 Pneumococcal Conjugate Vacci ne, 20-valent ([id number]) 04/01/2022 Pneumococcal Polysaccharide PPV23 (Pneumovax) 05/21/2006 Seasonal [...] Visit Internal Medicine Marcela Pinto MD 200 [place] [address] 07/10/2023 Laboratory Laboratory Moon Romero [address] [place] [address] 09/18/2023 Office Visit Cardiology Hammad Lopez DO [address] [place] [address] Scheduled Orders Name Type Priority Associated Diagnoses Orde r Schedule BASIC METABOLIC PANEL Lab Routine Type 2 diabetes mellitus with hemoglobin A1c goal of less than 7.5% (HCC) Expected: 04/03/2023 (Approximate), Expires: 04/02/2024 Health Maintenance Due Date Last Done Comments Zoster Vaccines (3 of 3) 05/27/2022 04/01/2022, 06/14 COVID-19 Vaccine (5 - Booster for Pfizer series) 06/11/2022 04/16/2022, 08/21/2021, 12/22/2020, Additional history exists DIABETES-EYE EXAM 03/08/2023 03/08/2022, , 08/07/2020, Additional history exists HbA1c 05/24/2023 11/24/2022, 05/14, 02/19/2022, Additional history exists CKD PHOS USE SMARTSET 91959 08/05/202307/14, 02/19/2022, 03/09/2021, Additional history exists GFR 10/02/2023 04/02/2023, 01/11, 12/24/2022, Additional history exists DIABETES-FOOT EXAM 10/10/2023 10/10/2022, 0 11/19/2021, 12/21/2020, Additional history exists Depression Screening, Annual for Pts 12 and Over 10/10/2023 10/10/2022 O2 ASSESSMENT COMPLETED IN PAST YEAR FOR COPD 11/24/2023 11/24/2022 CKD HGB USE SMARTSET 91638 01/22/202401/21, 01/21/2023, 12/24/2022, Additional history exists Albumin/Creatinine [...] of less than 7.5% ([facility])- Primary documented in this encounter Advance Directives Latest [...] Advance Directives occurred with: Patient Care Teams Systematic Theology Professor Relationship Specialty Start Date End Date Marcela Pinto MD 200 [place] [address] PCP - General Internal Medicine 08/04/14 documented as of this encounter
--- OUTSIDE RECORDS SUMMARY | 2023-06-18 02:15 | External Medical Summary | Summary of Care ---
Author Name Unknown Organization [facility] Address [address] [place] [address] Phone [phone] Care Team Providers Care Acid Concentrator Name Role Phone Marcela Pinto MD Primary Care Provider + Encounter Details Date Type Department Care Team Description 04/07/2023 Orders Only Outcomes Research Department [address] [place] [address] Donna Manzano CHRA MyCode Research Other*[id number] Allergies Active Allergy Reactions Severity Noted Date Comments Valsartan 07/10/2010 Enalapril 05/21/2006 Escitalopram Oxalate Nausea/vomiting 10/11/2009 Nauseated Iodinated Contrast Media Nausea/vomiting 2009 IV Contrast Iodine Hives 12/18/2009 IV Contrast [place] Oil-Black Currant-Vit E 07/10/2010 Verapamil 03/21/2004 Bupropion Hcl 10/30/2009 Makes pt sick in the stomach documented as of this encounter (statuses as of 04/07/2023) Medications Medication Sig Dispensed Refills Start Date [...] Respimat 1.25 MCG/ACT Inhalation Aerosol Solution (Tiotropium [place] Monohydrate) Inhale 2 Puffs by mouth in [...] with severity to be determined,COPD, moderate ([facility]) TAKE 1 PUFF BY MOUTH 4 TIMES A DAY 12 g 1 12/31/2022 Active Sertraline HCl 25 MG Oral Tablet (Zoloft)Indications :Major depressive disorder with single episode, in partial remission ([facility]),HECTOR (generalized anxiety disorder) TAKE 1 [...] A1c goal of less than 7.5% ([facility]) Test blood sugar once daily. [...] as of this encounter (statuses as of 04/07/2023) Active Problems Problem Noted Date Major depressive [...] as of this encounter (statuses as of 04/07/2023) Resolved Problems Problem Noted Date Resolved Date Type 2 diabetes mellitus wit h stage 3a chronic kidney disease 05/21/2021 11/19/2021 Overview: Per CKD protocol Asthma in remission 01/09/2021 03/05/2021 Asthma, mild persistent 01/09/2021 03/05/20 21 Asthma, moderate persistent 01/09/2021/01/2021 Asthma, severe persistent [...] Hypoxemia 10/08/2011 10/30/2015 Genetic Sleep Disorder Research Other*[id number] 07/25/2011 05/15/2016 COPD, moderate 07/19/2011 07/28/2019 Overview: [...] as of this encounter (statuses as of 04/07/2023) Immunizations Name Administration Dates Next Due COVID-19 mRNA, LNP-s, No Pre serve, 2-Dose Series ([employer]) 08/21/2021,12/22/2020,2020 COVID-19, LNP-s, No Preserve , Tyler-sucrose, Ages 12+ (Pfizer) 04/16/2022 Hepatitis B, 20+ yrs 10/01/2017,04/21/2017,03/20 Pneumococcal Conjugate Vacc, 13 Valent (Prevnar) 03/28/2015 Pneumococcal Conjugate Vacci ne, 20-valent ([id number]) 04/01/2022 Pneumococcal Polysaccharide PPV23 (Pneumovax) 05/21/2006 Seasonal [...] Internal Medicine Marcela Pinto MD [address] [place] [address] 07/10/2023 Laboratory Laboratory Moon Romero [address] [place] [address] 09/18/2023 Office Visit Cardiology Hammad Lopez, DO [address] [place] [address] Scheduled Orders Name Type Priority Associated Diagnoses Orde r Schedule MYCODE SUBSEQUENT ADULT Lab Routine MyCode Research Other*[id number] Every 6 Months for 2 Occurrences starting 04/07/2023 until 04/26/2024 Health Maintenance Due Date Last Done Comments Zoster Vaccines (3 of 3) 05/27/2022 04/01/2022, 06/14 COVID-19 Vaccine (5 - Booster for Pfizer series) 06/11/2022 04/16/2022, 08/21/2021, 12/22/2020, Additional history exists DIABETES-EYE EXAM 03/08/2023 03/08/2022, , 08/07/2020, Additional history exists HbA1c 05/24/2023 11/24/2022, 05/14, 02/19/2022, Additional history exists CKD PHOS USE SMARTSET 24448 08/05/202307/14, 02/19/2022, 03/09/2021, Additional history exists GFR 10/02/2023 04/02/2023, 01/11, 12/24/2022, Additional history exists DIABETES-FOOT EXAM 10/10/2023 10/10/2022, 0 11/19/2021, 12/21/2020, Additional history exists Depression Screening, Annual for Pts 12 and Over 10/10/2023 10/10/2022 O2 ASSESSMENT COMPLETED IN PAST YEAR FOR COPD 11/24/2023 11/24/2022 CKD HGB USE SMARTSET 69989 01/22/202401/21, 01/21/2023, 12/24/2022, Additional history exists Albumin/Creatinine [...] as of this encounter Visit Diagnoses Diagnosis MyCode Research Other*[id number] documented in this encounter Advance Directives Latest [...] Advance Directives occurred with: Patient Care Teams Acid Concentrator Relationship Specialty Start Date End Date Marcela Pinto MD 200 [facility] [place] [id number] PCP - General Internal Medicine 08/04/14 documented as of this encounter
--- OUTSIDE RECORDS SUMMARY | 2023-06-18 02:15 | External Medical Summary | Summary of Care ---
Author Name Unknown Organization [facility] Address [address] [place] [address] Phone [phone] Care Team Providers Care Bicycle Inspector Name Role Phone Marcela Pinto MD Primary Care Provider + Reason for Visit * Reason Onset Date Comments Health Maintenance 04/03/2023 Encounter Details Date Type Department Care Team Description 04/03/2023 Telephone General Internal Medicine [facility] [address] [facility] [place] [place] [address] Marcela Pinto MD [address] [place] [address] Health Maintenance Allergies Active Allergy Reactions Severity Noted Date Comments Valsartan 07/10/2010 Enalapril 05/21/2006 Escitalopram Oxalate Nausea/vomiting 10/11/2009 Nauseated Iodinated Contrast Media Nausea/vomiting 2009 IV Contrast Iodine Hives 12/18/2009 IV Contrast [place] Oil-Black Currant-Vit E 07/10/2010 Verapamil 03/21/2004 Bupropion [...] Respimat 1.25 MCG/ACT Inhalation Aerosol Solution (Tiotropium [place] Monohydrate) Inhale 2 Puffs by mouth in [...] with severity to be determined,COPD, moderate ([facility]) TAKE 1 PUFF BY MOUTH 4 TIMES A DAY 12 g 12/31/2022 Active Sertraline HCl 25 MG Oral Tablet (Zoloft)Indications :Major depressive disorder with single episode, in partial remission ([facility]),HECTOR (generalized anxiety disorder) TAKE 1 TABLET BY [...] A1c goal of less than 7.5% ([facility]) Test blood sugar once daily. E11.9 100 [...] Hypoxemia 10/08/2011 10/30/2015 Genetic Sleep Disorder Research Other*[id number] 07/25/2011 05/15/2016 COPD, moderate 07/19/2011 07/28/2019 Overview: [...] mRNA, LNP-s, No Pre serve, 2-Dose Series ([employer]) 08/21/2021,12/22/2020,2020 COVID-19, LNP-s, No Preserve , Tyler-sucrose, Ages 12+ (Pfizer) 04/16/2022 Hepatitis B, 20+ yrs 10/01/2017,04/21/2017,03/20 Pneumococcal Conjugate Vacc, 13 Valent (Prevnar) 03/28/2015 Pneumococcal Conjugate Vacci ne, 20-valent ([id number]) 04/01/2022 Pneumococcal Polysaccharide PPV23 (Pneumovax) 05/21/2006 Seasonal [...] encounter Miscellaneous Notes * Telephone Encounter - Vee Ferrell LPN - 04/03/2023 10:03 AM EDT Care Gaps Comprehensive Care Outreach Last Office/Telemedicine Visit: 03/27/2023 (in office), 08/08/2020 (telemedicine) Next Office Visit: 07/10/2023 Hemoglobin AIC Results: Lab Results Component Value Date/Time HEMOGLOBIN A1C - [facility] 6.2 (H) 11/24/2022 06:57 AM HEMOGLOBIN A1C - [facility] 6.8 (H) 06/07/2022 06:28 AM HEMOGLOBIN A1C - [facility] 6.8 (H) 02/19/2022 04:04 PM HEMOGLOBIN A1C - [facility] 6.6 (H) 08/26/2019 02:55 PM HEMOGLOBIN A1C - [facility] 6.8 (H) 07/27/2018 11:32 AM HEMOGLOBIN A1C - [facility] 6.2 01/14/2018 12:03 PM Reviewed Health Maintenance below: Health Maintenance Topic Date Due Zoster Vaccines (3 of 3) 05/27/2022 COVID-19 Vaccine (5 - Booster for Pfizer series) 06/11/2022 DIABETES-EYE EXAM 03/08/2023 HbA1c 05/24/2023 CKD PHOS USE SMARTSET 03460 08/05/2023 GFR 10/02/2023 DIABETES-FOOT EXAM 10/10/2023 Depression Screening, Annual for Pts 12 and Over 10/10/2023 Eye just saw [facility] rio linda requested Labs Ordered and scheduled Care Gap Outreach Action Taken: Spoke to patient documented in this encounter Plan of Treatment Upcoming Encounters Date Type Specialty Care Team Description 07/10/2023 Office Visit Internal Medicine Marcela Pinto MD [address] [place] [address] 07/10/2023 Laboratory Laboratory [facility] [address] [place] [address] 09/18/2023 Office Visit Cardiology Hammad Lopez O, DO [address] [place] [address] Scheduled Orders Name Type Priority Associated Diagnoses Orde r Schedule PHOSPHORUS Lab Routine Chronic kidney disease, unspecified CKD stage Expected: 07/04/2023, Expires: 04/03/2024 HEMOGLOBIN A1C Lab Routine Type 2 diabetes mellitus with hemoglobin A1c goal of less than 7.5% (HCC) Expected: 07/04/2023, Expires: 04/03/2024 COMPREHENSIVE METABOLIC PANEL Lab Routine Chronic kidney disease, unspecified CKD stage Expected: 07/04/2023, Expires: 04/03/2024 Health Maintenance Due Date Last Done Comments Zoster Vaccines (3 of 3) 05/27/2022 04/01/2022, 06/14 COVID-19 Vaccine (5 - Booster for Pfizer series) 06/11/2022 04/16/2022, 08/21/2021, 12/22/2020, Additional history exists DIABETES-EYE EXAM 03/08/2023 03/08/2022, , 08/07/2020, Additional history exists HbA1c 05/24/2023 11/24/2022, 05/14, 02/19/2022, Additional history exists CKD PHOS USE SMARTSET 10126 08/05/202307/14, 02/19/2022, 03/09/2021, Additional history exists GFR 10/02/2023 04/02/2023, 01/11, 12/24/2022, Additional history exists DIABETES-FOOT EXAM 10/10/2023 10/10/2022, 0 11/19/2021, 12/21/2020, Additional history exists Depression Screening, Annual for Pts 12 and Over 10/10/2023 10/10/2022 O2 ASSESSMENT COMPLETED IN PAST YEAR FOR COPD 11/24/2023 11/24/2022 CKD HGB USE SMARTSET 27836 01/22/202401/21, 01/21/2023, 12/24/2022, Additional history exists Albumin/Creatinine [...] A1c goal of less than 7.5% ([facility])- Primary Diabetes mellitus screening Screening for diabetes mellitus Chronic kidney disease, unspecified CKD stage documented in this encounter Advance Directives Latest [...] Advance Directives occurred with: Patient Care Teams Bicycle Inspector Relationship Specialty Start Date End Date Marcela Pinto MD [address] [place] [id number] PCP - General Internal Medicine 08/04/14 documented as of this encounter
--- OUTSIDE RECORDS SUMMARY | 2023-06-18 02:16 | External Medical Summary ---
Author Name Unknown Address Unknown Organization K01:[facility] [place] - [address] [place] [address] Laboratory Report Ordering Provider Test Date Status JOSE A JOHNSON 04/02/2023 14:35:27 Final Observation Date Value Abnormality Reference (Units ) Status BUN 04/02/2023 14:35:27 27 Above high normal 6-20 (mg/dL) Final Creatinine 04/02/2023 14:35:27 1.1 Above high normal 0.5-1.0 (mg/dL) Final Glomerular filtration rate/1.73 sq M.predicted [Volume Rate/Area] in Serum, Plasma or Blood by Creatinine-based formula (CKD-EPI) 04/02/2023 14:35:27 48 Below low normal >=60 (mL/min) Final Performing Location [facility] [place] - [address] [place] [address]
--- OUTSIDE RECORDS SUMMARY | 2023-06-18 02:16 | External Medical Summary | Summary of Care ---
Author Name Unknown Organization [facility] Address [address] [place] [address] Phone [phone] Care Team Providers Care Scale Tester Name Role Phone Marcela Pinto MD Primary Care Provider + Reason for Visit * Reason Onset Date Comments Medication Refill 03/04/2023 Encounter Details Date Type Department Care Team Description 03/04/2023 Refill General Internal Medicine [facility] [address] [place] [address] Marcela Pinto MD [address] [place] [address] Type 2 diabetes mellitus with hemoglobin A1c goal of less than 7.5% ([facility])* Allergies Active Allergy Reactions Severity Noted Date Comments Valsartan 07/10/2010 Enalapril 05/21/2006 Escitalopram Oxalate Nausea/vomiting 10/11/2009 Nauseated Iodinated Contrast Media Nausea/vomiting 2009 IV Contrast Iodine Hives 12/18/2009 IV Contrast [place] Oil-Black Currant-Vit E 07/10/2010 Verapamil 03/21/2004 Bupropion Hcl 10/30/2009 Makes pt sick in the stomach documented as of this encounter (statuses as of 03/05/2023) Medications Medication Sig Dispensed Refills Start Date [...] Respimat 1.25 MCG/ACT Inhalation Aerosol Solution (Tiotropium [place] Monohydrate) Inhale 2 Puffs by mouth in [...] to 180 days 1 Each 3 Active Ipratropium-Albuter ol 20-100 MCG/ACT Inhalation Aerosol Solution (Combivent Respimat)Indication s:Asthma with severity to be determined,COPD, moderate ([facility]) TAKE 1 PUFF BY MOUTH 4 TIMES A DAY 12 g 3 Active Sertraline HCl 25 MG Oral Tablet (Zoloft)Indications :Major depressive disorder with single episode, in partial remission ([facility]),HECTOR (generalized anxiety disorder) TAKE 1 [...] the morning. 90 Tablet 1 3 Active HYDROcodone-Acetami nophen 5-325 MG Oral TabletIndications:G eneralized osteoarthritis Take 1 Tablet by mouth every 6 hours as needed for Pain, Mild. 120 Tablet 0 3 Active OneTouch Verio In Vitro Strip (Glucose Blood)Indications:T ype 2 diabetes mellitus with hemoglobin A1c goal of less than 7.5% ([facility]) Test blood sugar once daily. E11.9 100 Strip 5 3 Active OneTouch Verio In Vitro Strip (Glucose Blood) Test blood sugar once daily. E11.9 100 Strip 5 3 03/04/20 23 Discontinu ed(Refill) documented as of this encounter (statuses as of 03/05/2023) Active Problems Problem Noted Date Full code status 12/05/2022 Presence of Watchman [...] as of this encounter (statuses as of 03/05/2023) Resolved Problems Problem Noted Date Resolved Date [...] Hypoxemia 10/08/2011 10/30/2015 Genetic Sleep Disorder Research Other*[id number] 07/25/2011 05/15/2016 COPD, moderate 07/19/2011 07/28/2019 Overview: [...] as of this encounter (statuses as of 03/05/2023) Immunizations Name Administration Dates Next Due COVID-19 mRNA, LNP-s, No Pre serve, 2-Dose Series ([employer]) 08/21/2021,12/22/2020,2020 COVID-19, LNP-s, No Preserve , Tyler-sucrose, Ages 12+ (Pfizer) 04/16/2022 Hepatitis B, 20+ yrs 10/01/2017,04/21/2017,03/20 Pneumococcal Conjugate Vacc, 13 Valent (Prevnar) 03/28/2015 Pneumococcal Conjugate Vacci ne, 20-valent ([id number]) 04/01/2022 Pneumococcal Polysaccharide PPV23 (Pneumovax) 05/21/2006 Seasonal [...] Telephone Encounter - Marcela Pinto MD - 03/05/2023 10:09 AM EDTSigned Prescriptions: Disp Refills OneTouch Verio In Vitro Strip (Glucose Blo*100 St*5 Sig: Test blood sugar once daily. E11.9 Authorizing Provider: MARCELA PINTO * Telephone Encounter - Renetta Gu LPN - 03/04/2023 5:38 PM EDTPending Prescriptions: Disp Refills OneTouch Verio In Vitro Strip (Glucose Blo*100 St*5 Sig: Test blood sugar once daily. E11.9 * Telephone Encounter - Renetta Gu LPN - 03/04/2023 5:38 PM EDT Did you pend patient's preferred pharmacy and medication before forwarding?yes Pharmacy: [id number] [id number] [facility] Pending Prescriptions: Disp Refills OneTouch Verio In Vitro Strip (Glucose Bl*100 St*5 Sig: Test blood sugar once daily. E11.9 Last Visit: 12/24/2022 (in office), 08/08/2020 (telemedicine) Next Visit: 03/27/2023 If no future appointments scheduled, and last appointment is greater than a year ago, please schedule patient for a follow-up appointment Last date the medication was ordered: Is this request for a controlled substance?No Urine Drug Screen: Results for orders placed [...] Results Component Value Date/Time CREAT 1.1 (H) 01/21/2023 11:04 AM CREAT 0.84 08/19/2022 12:00 AM CREAT 1.0 05/27/2020 04:51 PM POTASSIUM 4.4 01/21/2023 11:04 AM POTASSIUM 3.8 08/19/2022 12:00 AM POTASSIUM 4.0 05/27/2020 04:51 PM TSH 8.88 (H) 12/18/2022 05:41 AM TSH 0.965 12/05/2020 12:00 AM TSH 0.42 07/27/2018 11:32 AM LDLCALC 76 08/07/2021 09:05 AM LDLCALC 106 12/06/2020 05:15 AM LDLCALC 95 07/27/2018 11:32 AM LDLDIRECT 85 12/05/2020 12:00 AM LDLDIRECT 97 07/27/2018 11:32 AM ALT 10 01/21/2023 11:04 AM ALT 15 05/27/2020 04:51 PM HGBA1C 6.2 (H) 11/24/2022 06:57 AM HGBA1C 6.8 12/06/2020 05:15 AM HGBA1C 6.6 (H) 08/26/2019 02:55 PM documented in this encounter Plan of Treatment Upcoming Encounters Date Type Specialty Care Team Description 03/27/2023 Office Visit Internal Medicine Marcela Pinto MD 200 [facility] [place] [address] 04/02/2023 Office Visit Orthopedics Eliezer Gifford, DO [address] [place] [address] 09/18/2023 Office Visit Cardiology Hammad Lopez, DO [address] [place] [address] Health Maintenance Due Date Last Done Comments [...] Additional history exists CKD PHOS USE SMARTSET 20153 08/05/202307/14, 02/19/2022, 03/09/2021, Additional history exists DIABETES-FOOT EXAM 10/10/2023 10/10/2022, 0 11/19/2021, 12/21/2020, Additional history exists Depression Screening, Annual for Pts 12 and Over 10/10/2023 10/10/2022 O2 ASSESSMENT COMPLETED IN PAST YEAR FOR COPD 11/24/2023 11/24/2022 CKD HGB USE SMARTSET 59158 01/22/202401/21, 01/21/2023, 12/24/2022, Additional history exists DXA [...] hemoglobin A1c goal of less than 7.5% ([facility])- Primary documented in this encounter [...] Advance Directives occurred with: Patient Care Teams Scale Tester Relationship Specialty Start Date End Date Marcela Pinto MD [address] [place] [address] [place] [address] PCP - General Internal Medicine 08/04/14 documented as of this encounter
--- OUTSIDE RECORDS SUMMARY | 2023-06-18 02:16 | External Medical Summary | Summary of Care ---
Author Name Unknown Organization [facility] Address [address] [place] [address] Phone [phone] Care Team Providers Care C.O.D. Biller Name Role Phone Marcela Pinto MD Primary Care Provider + Encounter Details Date Type Department Care Team Description 03/27/2023 Lokie EngineerOccupational Health Nurse Manager Practice [address] [address] Joanna Smith, RN Medical home patient encounter* Allergies Active Allergy Reactions Severity Noted Date Comments Valsartan 07/10/2010 Enalapril 05/21/2006 Escitalopram Oxalate Nausea/vomiting 10/11/2009 Nauseated Iodinated Contrast Media Nausea/vomiting 2009 IV Contrast Iodine Hives 12/18/2009 IV Contrast [place] Oil-Black Currant-Vit E 07/10/2010 Verapamil 03/21/2004 Bupropion Hcl 10/30/2009 Makes pt sick in the stomach documented as of this encounter (statuses as of 03/27/2023) Medications Medication Sig Dispensed Refills Start Date [...] Respimat 1.25 MCG/ACT Inhalation Aerosol Solution (Tiotropium [place] Monohydrate) Inhale 2 Puffs by mouth in [...] s:Asthma with severity to be determined,COPD, moderate ([facility]) TAKE 1 PUFF BY MOUTH 4 TIMES A DAY 12 g 1 12/31/2022 Active Sertraline HCl 25 MG Oral Tablet (Zoloft)Indications :Major depressive disorder with single episode, in partial remission ([facility]),HECTOR (generalized anxiety disorder) TAKE 1 [...] hemoglobin A1c goal of less than 7.5% ([facility]) Test blood sugar once daily. E11.9 100 Strip 5 03/05/2023 Active HYDROcodone-Acetami nophen 5-325 MG Oral TabletIndications:G eneralized osteoarthritis Take 1 Tablet by mouth every 6 hours as needed for Pain, Mild. 120 Tablet 0 03/13/2023 Active documented as of this encounter (statuses as of 03/27/2023) Active Problems Problem Noted Date Full code [...] as of this encounter (statuses as of 03/27/2023) Resolved Problems Problem Noted Date Resolved Date [...] Hypoxemia 10/08/2011 10/30/2015 Genetic Sleep Disorder Research Other*[id number] 07/25/2011 05/15/2016 COPD, moderate 07/19/2011 07/28/2019 Overview: [...] as of this encounter (statuses as of 03/27/2023) Immunizations Name Administration Dates Next Due COVID-19 mRNA, LNP-s, No Pre serve, 2-Dose Series ([employer]) 08/21/2021,12/22/2020,2020 COVID-19, LNP-s, No Preserve , Tyler-sucrose, Ages 12+ ([employer]) 04/16/2022 Hepatitis B, 20+ yrs 10/01/2017,04/21/2017,03/20 Pneumococcal Conjugate Vacc, 13 Valent (Prevnar) 03/28/2015 Pneumococcal Conjugate Vacci ne, 20-valent ([id number]) 04/01/2022 Pneumococcal Polysaccharide PPV23 (Pneumovax) 05/21/2006 Seasonal [...] at Date Recorded Female 04/06/2019 2:19 PM EDT Job Start Date Occupation Industry Not on [...] Progress Notes * Joanna Smith RN - 03/27/2023 1:33 PM EDT 1. Follow-up Routine 2. Attempted Phone Call First Attempt 3. Call Outcome Left Voicemail/Message 4. Plan To attempt another outreach documented in this encounter Plan of Treatment Upcoming Encounters Date Type Specialty Care Team Description 04/02/2023 Office Visit Orthopedics Eliezer Gifford, DO [address] [place] [address] 09/18/2023 Office Visit Cardiology Hammad Lopez, [address] [place] [address] Health Maintenance Due Date Last Done Comments [...] Additional history exists CKD PHOS USE SMARTSET 30597 08/05/202307/14, 02/19/2022, 03/09/2021, Additional history exists DIABETES-FOOT EXAM 10/10/2023 10/10/2022, 0 11/19/2021, 12/21/2020, Additional history exists Depression Screening, Annual for Pts 12 and Over 10/10/2023 10/10/2022 O2 ASSESSMENT COMPLETED IN PAST YEAR FOR COPD 11/24/2023 11/24/2022 CKD HGB USE SMARTSET 75688 01/22/202401/21, 01/21/2023, 12/24/2022, Additional history exists DXA [...] Advance Directives occurred with: Patient Care Teams C.O.D. Biller Relationship Specialty Start Date End Date Marcela Pinto MD [address] [place] [address], [place] [address] PCP - General Internal Medicine 08/04/14 documented as of this encounter
--- OUTSIDE RECORDS SUMMARY | 2023-06-18 02:16 | External Medical Summary ---
Author Name Unknown Address Unknown Organization K01:[facility] [place] - [address] [place] [address] Laboratory Report Ordering Provider Test Date Status JOSE A JOHNSON 04/02/2023 14:35:27 Final Observation Date Value Abnormality Reference (Units) Status Albumin, Urine 04/02/2023 14:35:27 <1.20 (mg/dL) Final Creatinine, Urine 04/02/2023 14:35:27 18 (mg/dL) Final ALBUMIN/CREATININE RATIO, HIDE 04/02/2023 14:35:27 Uninterpretable Albumin/Creatinine ratio due to very low albumin and creatinine values. <30 (mg/g Creat) Final Performing Location [facility] - [address] [place] [address]
--- OUTSIDE RECORDS SUMMARY | 2023-06-18 02:16 | External Medical Summary | Summary of Care ---
Author Name Unknown Organization [facility] Address [address] [place] [address] Phone [phone] Care Team Providers Care Copy Chaser Name Role Phone Marcela Pinto MD Primary Care Provider + Reason for Visit * Reason Comments eRx-Medication Refill Encounter Details Date Type Department Care Team Description 03/11/2023 Refill General Internal Medicine [facility] [address] [facility] [place] [address] Marcela Pinto MD [address] [facility] [place] [address] Hyperthyroidism Allergies Active Allergy Reactions Severity Noted Date Comments Valsartan 07/10/2010 Enalapril 05/21/2006 Escitalopram Oxalate Nausea/vomiting 10/11/2009 Nauseated Iodinated Contrast Media Nausea/vomiting 2009 IV Contrast Iodine Hives 12/18/2009 IV Contrast [place] Oil-Black Currant-Vit E 07/10/2010 Verapamil 03/21/2004 Bupropion Hcl 10/30/2009 Makes pt sick in the stomach documented as of this encounter (statuses as of 03/12/2023) Medications Medication Sig Dispensed Refills Start Date [...] Respimat 1.25 MCG/ACT Inhalation Aerosol Solution (Tiotropium [place] Monohydrate) Inhale 2 Puffs by mouth in [...] s:Asthma with severity to be determined,COPD, moderate ([facility], [...] the morning. 90 Tablet 1 01/27/2023 Active HYDROcodone-Acetami nophen 5-325 MG Oral TabletIndications:G eneralized osteoarthritis Take 1 Tablet by mouth every 6 hours as needed for Pain, Mild. 120 Tablet 0 02/06/2023 Active OneTouch Verio In Vitro Strip (Glucose Blood)Indications:T ype 2 diabetes mellitus with hemoglobin A1c goal of less than 7.5% ([facility]) Test blood sugar once daily. E11.9 100 Strip 5 03/05/2023 Active documented as of this encounter (statuses as of 03/12/2023) Active Problems Problem Noted Date Full code [...] as of this encounter (statuses as of 03/12/2023) Resolved Problems Problem Noted Date Resolved Date Type 2 diabetes mellitus wit h stage 3a chronic kidney disease 05/21/2021 11/19/2021 Overview: Per CKD protocol Asthma in remission 01/09/2021 03/05/2021 Asthma, mild persistent 01/09/2021 03/05/20 Asthma, moderate persistent 01/09/202102/11 Asthma, severe persistent 01/09/20212020 Intermittent asthma with [...] Hypoxemia 10/08/2011 10/30/2015 Genetic Sleep Disorder Research Other*[id number] 07/25/2011 05/15/2016 COPD, moderate 07/19/2011 07/28/2019 Overview: [...] as of this encounter (statuses as of 03/12/2023) Immunizations Name Administration Dates Next Due COVID-19 mRNA, LNP-s, No Pre serve, 2-Dose Series ([employer]) 08/21/2021,12/22/2020,2020 COVID-19, LNP-s, No Preserve , Tyler-sucrose, Ages 12+ (Pfizer) 04/16/2022 Hepatitis B, 20+ yrs 10/01/2017,04/21/2017,03/20 Pneumococcal Conjugate Vacc, 13 Valent (Prevnar) 03/28/2015 Pneumococcal Conjugate Vacci ne, 20-valent ([id number]) 04/01/2022 Pneumococcal Polysaccharide PPV23 (Pneumovax) 05/21/2006 Seasonal [...] encounter Miscellaneous Notes * Telephone Encounter - Marly Tolbert RPh - 03/12/2023 1:12 PM EDTRefused Prescriptions: Disp Refills methIMAzole 10 MG Oral Tablet (Tapazole) 90 Tab*1 Sig: TAKE 1 TABLET BY MOUTH EVERY DAYRefused By: MARLY TOLBERT for Refusal: Refill Not Appropriate------- documented in this encounter Plan of Treatment Upcoming Encounters Date Type Specialty Care Team Description 03/27/2023 Office Visit Internal Medicine Marcela Pinto MD [address] [facility] [place], [place] [phone] 04/02/2023 Office Visit Orthopedics Eliezer Gifford, DO [address] [place] [address] 09/18/2023 Office Visit Cardiology Hammad Lopez, DO [address] [place] [address] Health Maintenance Due Date Last Done Comments [...] Additional history exists CKD PHOS USE SMARTSET 69136 08/05/202307/14, 02/19/2022, 03/09/2021, Additional history exists DIABETES-FOOT EXAM 10/10/2023 10/10/2022, 0 11/19/2021, 12/21/2020, Additional history exists Depression Screening, Annual for Pts 12 and Over 10/10/2023 10/10/2022 O2 ASSESSMENT COMPLETED IN PAST YEAR FOR COPD 11/24/2023 11/24/2022 CKD HGB USE SMARTSET 28765 01/22/202401/21, 01/21/2023, 12/24/2022, Additional history exists DXA [...] as of this encounter Visit Diagnoses Diagnosis Hyperthyroidism Thyrotoxicosis 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
--- OUTSIDE RECORDS SUMMARY | 2023-06-18 02:16 | External Medical Summary | Summary of Care ---
Author Name Unknown Organization [facility] Address [address] [place] [address] Phone [phone] Care Team Providers Care Enterprise Manager Name Role Phone Marcela Pinto MD Primary Care Provider + Encounter Details Date Type Department Care Team Description 02/27/2023 Orders Only General Internal Medicine [facility] [place] [address] [facility] [place] [address] Marcela Pinto MD [address] [place] [address] Type 2 diabetes mellitus with hemoglobin A1c goal of less than 7.5% ([facility])* Allergies Active Allergy Reactions Severity Noted Date Comments Valsartan 07/10/2010 Enalapril 05/21/2006 Escitalopram Oxalate Nausea/vomiting 10/11/2009 Nauseated Iodinated Contrast Media Nausea/vomiting 2009 IV Contrast Iodine Hives 12/18/2009 IV Contrast [place] Oil-Black Currant-Vit E 07/10/2010 Verapamil 03/21/2004 Bupropion Hcl 10/30/2009 Makes pt sick in the stomach documented as of this encounter (statuses as of 02/27/2023) Medications Medication Sig Dispensed Refills Start Date [...] Respimat 1.25 MCG/ACT Inhalation Aerosol Solution (Tiotropium [place] Monohydrate) Inhale 2 Puffs by mouth in [...] s:Asthma with severity to be determined,COPD, moderate (HCC) [...] sugar once daily. E11.9 100 Strip 5 02/21/2023 Active documented as of this encounter (statuses as of 02/27/2023) Active Problems Problem Noted Date Full code [...] as of this encounter (statuses as of 02/27/2023) Resolved Problems Problem Noted Date Resolved Date [...] Hypoxemia 10/08/2011 10/30/2015 Genetic Sleep Disorder Research Other*[id number] 07/25/2011 05/15/2016 COPD, moderate 07/19/2011 07/28/2019 Overview: [...] as of this encounter (statuses as of 02/27/2023) Immunizations Name Administration Dates Next Due COVID-19 mRNA, LNP-s, No Pre serve, 2-Dose Series (Tabber) 08/21/2021,12/22/2020,2020 COVID-19, LNP-s, No Preserve , Tyler-sucrose, Ages 12+ (Pfizer) 04/16/2022 Hepatitis B, 20+ yrs 10/01/2017,04/21/2017,03/20 Pneumococcal Conjugate Vacc, 13 Valent (Prevnar) 03/28/2015 Pneumococcal Conjugate Vacci ne, 20-valent ([id number]) 04/01/2022 Pneumococcal Polysaccharide PPV23 (Pneumovax) 05/21/2006 Seasonal [...] Office Visit Internal Medicine Marcela Pinto MD [address] [place], [place] [address] [address] 04/02/2023 Office Visit Orthopedics Eliezer Gifford, DO [address] [place] [address] 09/18/2023 Office Visit Cardiology Hammad Lopez, DO [address] [place] [address] Scheduled Orders Name Type Priority Associated Diagnoses Orde r Schedule BASIC METABOLIC PANEL Lab Routine Type 2 diabetes mellitus with hemoglobin A1c goal of less than 7.5% (HCC) Expected: 02/27/2023 (Approximate), Expires: 02/27/2024 Health Maintenance Due Date Last Done Comments Zoster Vaccines (3 of 3) 05/27/2022 04/01/2022, 06/14 COVID-19 Vaccine (5 - Booster for Pfizer series) 06/11/2022 04/16/2022, 08/21/2021, 12/22/2020, Additional history exists Albumin/Creatinine Ratio 02/19/2023 022, 07/09/2019, 07/27/2018, Additional history exists DIABETES-EYE EXAM 03/08/2023 03/08/2022, , 08/07/2020, Additional history exists HgA1C 05/24/2023 11/24/2022, 05/14, 02/19/2022, Additional history exists GFR - Renal Function 07/23/2023 01/21/2023, 12/24/2022, 12/11/2022, Additional history exists CKD PHOS USE SMARTSET 20900 08/05/202307/14, 02/19/2022, 03/09/2021, Additional history exists DIABETES-FOOT EXAM 10/10/2023 10/10/2022, 0 11/19/2021, 12/21/2020, Additional history exists Depression Screening, Annual for Pts 12 and Over 10/10/2023 10/10/2022 O2 ASSESSMENT COMPLETED IN PAST YEAR FOR COPD 11/24/2023 11/24/2022 CKD HGB USE SMARTSET 34995 01/22/202401/21, 01/21/2023, 12/24/2022, Additional history exists DXA [...] hemoglobin A1c goal of less than 7.5% ([facility])- Primary documented in this encounter [...] Advance Directives occurred with: Patient Care Teams Enterprise Manager Relationship Specialty Start Date End Date Marcela Pinto MD [address] [place] [address] PCP - General Internal Medicine 08/04/14 documented as of this encounter
--- OUTSIDE RECORDS SUMMARY | 2023-06-18 02:16 | External Medical Summary | Summary of Care ---
Author Name Unknown Organization [facility] Address [address] [place] [address] Phone [phone] Care Team Providers Care Governor Assembler Hydraulic Name Role Phone Marcela Pinto MD Primary Care Provider + Reason for Referral * Medication Prior Authorization - Closed Specialty Diagnoses / Procedures Referred By Contnesha t Referred To Contact Diagnoses Generalized osteoarthritis Marcela Pinto MD [address] [place] [address] Referral ID Status Reason Start Date Expiration Date Visits Re quested Visits Authorized [id number] Closed 999 999 Reason for Visit * Reason Onset Date Comments Medication Refill 03/13/2023 FYI 03/13/2023 Encounter Details Date Type Department Care Team Description 03/13/2023 Refill General Internal Medicine [facility] [place] [address] [place] [address] Marcela Pinto MD [address] [facility] [place] [address] GENERAL OSTEOARTHROSIS Allergies Active Allergy Reactions Severity Noted Date Comments Valsartan 07/10/2010 Enalapril 05/21/2006 Escitalopram Oxalate Nausea/vomiting 10/11/2009 Nauseated Iodinated Contrast Media Nausea/vomiting 2009 IV Contrast Iodine Hives 12/18/2009 IV Contrast [place] Oil-Black Currant-Vit E 07/10/2010 Verapamil 03/21/2004 Bupropion Hcl 10/30/2009 Makes pt sick in the stomach documented as of this encounter (statuses as of 03/13/2023) Medications Medication Sig Dispensed Refills Start Date [...] Respimat 1.25 MCG/ACT Inhalation Aerosol Solution (Tiotropium [place] Monohydrate) Inhale 2 Puffs by mouth in [...] s:Asthma with severity to be determined,COPD, moderate ([facility]) TAKE 1 PUFF BY MOUTH 4 TIMES A DAY 12 g 1 3 Active Sertraline HCl 25 MG Oral Tablet (Zoloft)Indications :Major depressive disorder with single episode, in partial remission ([facility]),HECTOR (generalized anxiety disorder) TAKE 1 TABLET [...] 6 3 Active Vitamin D3 50 MCG (2000 [...] hemoglobin A1c goal of less than 7.5% ([facility]) Test blood sugar once daily. E11.9 100 Strip 5 3 Active HYDROcodone-Acetami nophen 5-325 MG Oral TabletIndications:G eneralized osteoarthritis Take 1 Tablet by mouth every 6 hours as needed for Pain, Mild. 120 Tablet 0 3 Active HYDROcodone-Acetami nophen 5-325 MG Oral TabletIndications:G eneralized osteoarthritis Take 1 Tablet by mouth every 6 hours as needed for Pain, Mild. 120 Tablet 0 3 03/13/20 Discontinu ed(Refill) documented as of this encounter (statuses as of 03/13/2023) Active Problems Problem Noted Date Full code [...] as of this encounter (statuses as of 03/13/2023) Resolved Problems Problem Noted Date Resolved Date [...] Hypoxemia 10/08/2011 10/30/2015 Genetic Sleep Disorder Research Other*[id number] 07/25/2011 05/15/2016 COPD, moderate 07/19/2011 07/28/2019 Overview: [...] as of this encounter (statuses as of 03/13/2023) Immunizations Name Administration Dates Next Due COVID-19 mRNA, LNP-s, No Pre serve, 2-Dose Series ([email or web address]) 08/21/2021,12/22/2020,2020 COVID-19, LNP-s, No Preserve , Tyler-sucrose, Ages 12+ (Pfizer) 04/16/2022 Hepatitis B, 20+ yrs 10/01/2017,04/21/2017,03/20 Pneumococcal Conjugate Vacc, 13 Valent (Prevnar) 03/28/2015 Pneumococcal Conjugate Vacci ne, 20-valent ([id number]) 04/01/2022 Pneumococcal Polysaccharide PPV23 (Pneumovax) 05/21/2006 Seasonal [...] Telephone Encounter - Marcela Pinto MD - 03/13/2023 4:33 PM EDTSigned Prescriptions: Disp Refills HYDROcodone-Acetaminophen 5-325 MG Oral Ta*120 Ta*0 Sig: Take 1 Tablet by mouth every 6 hours as needed for Pain, Mild. Authorizing Provider: MARCELA PINTO * Telephone Encounter - Nicole SaeedNICOL - 03/13/2023 3:49 PM EDT Pending Prescriptions: Disp Refills HYDROcodone-Acetaminophen 5-325 MG Oral T*120 Ta*0 Sig: Take 1 Tablet by mouth every 6 hours as needed for Pain, Mild. Last Visit: 12/24/2022 (in office), 08/08/2020 (telemedicine) Next Visit: 03/27/2023 Last date the medication was ordered: 02/06/23 Patient Active Problem List Diagnosis Code Asthma [...] hemoglobin A1c goal of less than 7.5% ([facility]) E11.9 Elevated plasma metanephrines R79.89 Irritable bowel syndrome with constipation K58.1 HECTOR (generalized anxiety disorder) F41.1 COPD, group B, 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 ([facility]) J44.9 Morbid obesity with BMI of 40.0-44.9, adult ([facility]) E66.01, Z68.41 Gastro-esophageal reflux disease without esophagitis K21.9 Paroxysmal atrial fibrillation ([facility]) I48.0 Chronic systolic heart failure ([facility]) I50.22 Pulmonary HTN ([facility]) I27.20 Chronic hypoxemic respiratory failure ([facility]) J96.11 Chronic kidney disease, stage 3a ([facility]) N18.31 Subclinical hyperthyroidism E05.90 History of ESBL E. coli infection Z86.19 Type 2 diabetes mellitus with stage 3a chronic kidney disease, without long- term current use ofinsulin ([facility]) E11.22, N18.31 Gastroparesis K31.84 Ischemic colitis (HCC) K55.9 Asthma, mild persistent J45.30 Diverticulitis of intestine with abscess K57.80 Protein-calorie malnutrition (HCC) E46 UTI due to extended-spectrum beta lactamase (ESBL) producing Escherichia coli N39.0, B96.29, Z16.12 History of colon resection Z90.49 Wound dehiscence T81.30XA History of 2019 novel coronavirus disease (COVID-19) Z86.16 Post-op pain G89.18 Presence of Watchman left atrial appendage closure device Z95.818 Full code status Z78.9 Labs: Lab Results Component Value Date/Time CREATININE - [facility] 1.1 (H) 01/21/2023 11:04 AM CREATININE - [facility] 1.0 05/27/2020 04:51 PM CREATININE TIM 221 08/26/2019 02:57 PM CREATININE TIM - [facility] 78 06/27/2022 03:41 PM CREATININE, 24 HOUR URINE - [facility] 1.106 02/26/2017 09:11 AM CREATININE, RANDOM URINE - [facility] 69 02/19/2022 04:09 PM CREATININE, RANDOM URINE - [facility] 128 07/09/2019 01:57 PM CREATININE-OUTSIDE LAB 0.84 08/19/2022 12:00 AM Lab Results Component Value Date/Time POTASSIUM - [facility] 4.4 01/21/2023 11:04 AM POTASSIUM - [facility] 4.0 05/27/2020 04:51 [...] Results Component Value Date/Time ALT - [facility] 10 01/21/2023 11:04 AM ALT - [facility] 15 05/27/2020 04:51 [...] A1C - [facility] 6.2 01/14/2018 12:03 PM documented in this encounter Plan of Treatment Upcoming Encounters Date Type Specialty Care Team Description 03/27/2023 Office Visit Internal Medicine Marcela Pinto MD [address] [facility], [place] [address] 04/02/2023 Office Visit Orthopedics Eliezer Gifford, DO [address] [place] [address] 09/18/2023 Office Visit Cardiology Hammad Lopez, [address] [place] [address] Health Maintenance Due Date Last Done Comments [...] Additional history exists CKD PHOS USE SMARTSET 87468 08/05/202307/14, 02/19/2022, 03/09/2021, Additional history exists DIABETES-FOOT EXAM 10/10/2023 10/10/2022, 0 11/19/2021, 12/21/2020, Additional history exists Depression Screening, Annual for Pts 12 and Over 10/10/2023 10/10/2022 O2 ASSESSMENT COMPLETED IN PAST YEAR FOR COPD 11/24/2023 11/24/2022 CKD HGB USE SMARTSET 65836 01/22/202401/21, 01/21/2023, 12/24/2022, Additional history exists DXA [...] Advance Directives occurred with: Patient Care Teams Governor Assembler Hydraulic Relationship Specialty Start Date End Date Marcela Pinto MD [address] [facility] [place] [address] PCP - General Internal Medicine 08/04/14 documented as of this encounter
--- OUTSIDE RECORDS SUMMARY | 2023-06-18 02:16 | External Medical Summary | Summary of Care ---
Author Name Unknown Organization [facility] Address [address] [place] [address] Phone [phone] Care Team Providers Care Environmental Attorney Name Role Phone Marcela Pinto MD Primary Care Provider + Reason for Visit * Reason Onset Date Comments Re-Check 3 month return. States she can't sleep very good due to pain Immunizations 03/27/2023 Shingrix Encounter Details Date Type Department Care Team Description 03/27/2023 Office Visit General Internal Medicine Ashok Romero [place] [address] [facility] [place], [place] [id number] Marcela Pinto MD 200 [facility] [place] [address] Type 2 diabetes mellitus with hemoglobin A1c goal of less than 7.5% ([facility])*; Protein-calorie malnutrition, unspecified severity ([facility]); Major depressive disorder with single episode, in partial remission (HCC); Ischemic colitis (HCC); Morbid obesity with BMI of 40.0-44.9, adult ([facility]); Hyperlipidemia with target LDL less than 100; Sleep apnea, obstructive; Nocturnal hypoxia; Subclinical hyperthyroidism; HTN, goal below 140/90; Paroxysmal atrial fibrillation (HCC); Chronic systolic heart failure (HCC); Arthralgia of both lower legs; Need for vaccination for zoster Allergies Active Allergy Reactions Severity Noted Date Comments Valsartan 07/10/2010 Enalapril 05/21/2006 Escitalopram Oxalate Nausea/vomiting 10/11/2009 Nauseated Iodinated Contrast Media Nausea/vomiting 2009 IV Contrast Iodine Hives 12/18/2009 IV Contrast [place] Oil-Black Currant-Vit E 07/10/2010 Verapamil 03/21/2004 Bupropion [...] Respimat 1.25 MCG/ACT Inhalation Aerosol Solution (Tiotropium [place] Monohydrate) Inhale 2 Puffs by mouth in [...] goal of less than 7.5% ([facility]) Test blood sugar once daily. [...] of 03/27/2023) Active Problems Problem Noted Date Major depressive [...] Hypoxemia 10/08/2011 10/30/2015 Genetic Sleep Disorder Research Other*[id number] 07/25/2011 05/15/2016 COPD, moderate 07/19/2011 07/28/2019 Overview: [...] (Prevnar) 03/28/2015 Pneumococcal Conjugate Vacci ne, 20-valent ([id number]) 04/01/2022 Pneumococcal Polysaccharide PPV23 (Pneumovax) 05/21/2006 Seasonal [...] Sign Reading Time Taken Comments Blood Pressure 104/68 03/27/2023 1:51 PM EDT Pulse 94 03/27/2023 1:51 PM EDT Temperature 36.4 C (97.6 F) 03/27/2023 1:51 PM ED T Respiratory Rate 18 03/27/2023 1:51 PM EDT Oxygen Saturation 97% 03/27/2023 1:51 PM EDT Inhaled Oxygen Concentration - - [...] No 11/23/2022 documented as of this encounter Patient Instructions * Patient Instructions* Marcela Pinto MD - 03/27/2023 2:26 PM EDT ~~PATIENT INSTRUCTIONS FOR SHINGRIX VACCINE~~ Possible side effects of Shingrix vaccine, (shingles), are usually mild and can include: 1. Soreness or redness at injection site 2. Low grade fever 3. Body aches You may use a fever / pain reducing medication as needed for these symptoms. LET YOUR DOCTOR KNOW IMMEDIATELY IF YOU HAVE DIFFICULTY BREATHING OR SWALLOWING, EXPERIENCE ITCHINGOF FEET OR HANDS, HAVE SWELLING OF EYES, FACE OR INSIDE OF NOSE. documented in this encounter Progress Notes * Marcela Pinto MD - 03/27/2023 2:05 PM EDT Images from the original note were not included. History of Present Illness Nina Harrington is a 82 year old female With history of chronic pain syndrome, on Vicodin, type 2 diabetes mellitus, hypertension, hyperlipidemia, COPD, asthma, hyperparathyroidism, sleep apnea, anxiety, depression, history of chronic constipation, paroxysmal atrial fibrillation, history of gastroparesis, ischemic colitis osteoarthritis , history of recurrent diverticulitis , diverticulosis, history of diverticular abscess, status post colectomy, follows with colorectal surgeon at [place], s/pHand-assist laparoscopic low anterior resectionon 11/01/22 for diverticulitis and colovesical fistula. Pt developed COVID post op and due to severe coughing developed fascial dehiscence and underwentExploratory laparotomy, abdominal fascial closure on 11/24/22 that presents for Re-Check (3 month return. States she can't sleep very good due to pain) Patient is here for the recheck. Chart reviewed with the patient including current meds, last labs and HM. No acute event since we saw her last time including no recent fall or injuries. States have Rt shoulder pain, but off and on hurts in both upper arms and legs too. Takes vicodin every 6 hourly. Has chronic lower backpain but no weakness, tingling, numbness. States cortisol shot didn't help much, has upcoming visit with ortho next week. Denies any chestpain/palpitation/swealling in the legs. Has chronic sob+ No urinary s/s. No major anxiety or depression . Physical Exam Vitals: 03/27/23 1351 Temp: 36.4 C (97.6 F) Pulse: 94 Resp: 18 SpO2: 97% BP: 104/68 BP Readings from Last 3 Encounters: 03/27/23 104/68 01/03/23 106/66 12/30/22 104/62 Wt Readings from Last 3 Encounters: 01/03/23 93.9 kg (207 lb 1.6 oz) 12/24/22 94.9 kg (209 lb 4.8 oz) 12/17/22 95.2 kg (209 lb 14.4 oz) BMI Readings from Last 3 Encounters: 01/03/23 34.46 kg/m 12/24/22 34.83 kg/m 12/17/22 34.93 kg/m Ht Readings from Last 3 Encounters: 12/17/22 1.651 m (5' 5") 11/23/22 1.651 m (5' 5") 10/31/22 1.651 m (5' 5") I have reviewed the following results: CMP, Hemoglobin A1C and CBC HEENT: PERRLA, EOMI, anicteric sclera, b/l tympanic membrane is pearly white, no erythema, no pharyngeal erythema, no lymphadenopathy, neck supple CVS: RRR, no murmurs, rubs or gallops, s1 s 2normal. RESP: clear to auscultation, no wheezing or crackles ABD: soft, NT/ND EXT: no edema, cyanosis, peripheral pulses palpable bilaterally No large joint swelling, no redness, range of motion normal. Skin normal. Gait normal. Mood stable No focal weakness Assessment and Plan Type 2 diabetes mellitus with hemoglobin A1c goal of less than 7.5% (HCC) (Primary) On amaryl. Diet control. Protein-calorie malnutrition, unspecified severity (HCC) High protein diet discussed. Major depressive disorder with single episode, in partial remission (HCC) On zoloft. Helps current dose. Continue. Ischemic colitis (HCC) Morbid obesity with BMI of 40.0-44.9, adult (HCC) Diet, portion conttrol discussed. Hyperlipidemia with target LDL less than 100 On statin. Sleep apnea, obstructive Only on oxygen 4 l/ min at night and 2 l/min during day time. . Nocturnal hypoxia Subclinical hyperthyroidism On methimazole. HTN, goal below 140/90 Well controlled. Paroxysmal atrial fibrillation (HCC) Rate controlled. Off anticoag. S/p watchman procedure. Chronic systolic heart failure (HCC) compensated on current dose of lasix. Arthralgia of both lower legs - Start Gabapentin 100 MG Oral Capsule (Neurontin); One pill once daily for 2 days then twice dailyfor 2 days then continue one pill three times daily. Will gradually increase the dosage. Wrap-Up documented in this encounter Nursing Notes * Teresita Raymundo LPN - 03/27/2023 1:48 PM EDT Chief Complaint Patient presents with Re-Check 3 month return. States she can't sleep very good due to pain documented in this encounter Plan of Treatment Upcoming Encounters Date Type Specialty Care Team Description 04/02/2023 Office Visit Orthopedics Eliezer Gifford, [address] [place] [address] 07/10/2023 Office Visit Internal Medicine Marcela Pinto MD [address] [facility], [place] [address] 09/18/2023 Office Visit Cardiology Hammad Lopez DO [address] [place] [address] Scheduled Orders Name Type Priority Associated Diagnoses Orde r Schedule ALBUMIN / CREATININE RATIO, URINE Lab Routine HTN, goal below 140/90 Expected: 03/27/2023 (Approximate), Expires: 03/26/2024 Health Maintenance Due Date Last Done Comments [...] Additional history exists CKD PHOS USE SMARTSET 08331 08/05/202307/14, 02/19/2022, 03/09/2021, Additional history exists DIABETES-FOOT EXAM 10/10/2023 10/10/2022, 0 11/19/2021, 12/21/2020, Additional history exists Depression Screening, Annual for Pts 12 and Over 10/10/2023 10/10/2022 O2 ASSESSMENT COMPLETED IN PAST YEAR FOR COPD 11/24/2023 11/24/2022 CKD HGB USE SMARTSET 10515 01/22/202401/21, 01/21/2023, 12/24/2022, Additional history exists DXA [...] hemoglobin A1c goal of less than 7.5% (HCC)- Primary Protein-calorie malnutrition, unspecified severity (HCC) Major depressive disorder with single episode, in partial remission (HCC) Ischemic colitis (HCC) Unspecified vascular insufficiency of intestine Morbid obesity with BMI of 40.0-44.9, adult (HCC) Morbid obesity Hyperlipidemia with target LDL less than 100 Other and unspecified hyperlipidemia Sleep apnea, obstructive Obstructive sleep apnea (adult) (pediatric) Nocturnal hypoxia Hypoxemia Subclinical hyperthyroidism Thyrotoxicosis without mention of goiter or other cause, without mention of thyrotoxic crisis or storm HTN, goal below 140/90 Unspecified essential hypertension Paroxysmal atrial fibrillation (HCC) Atrial fibrillation Chronic systolic heart failure (HCC) Chronic systolic heart failure Arthralgia of both lower legs Need for vaccination for zoster Need for prophylactic vaccination and inoculation against other viral diseases documented in this encounter Advance Directives Latest [...] Advance Directives occurred with: Patient Care Teams Environmental Attorney Relationship Specialty Start Date End Date Marcela Pinto MD [address] [place] [address], [place] [address] PCP - General Internal Medicine 08/04/14 documented as of this encounter
--- OUTSIDE RECORDS SUMMARY | 2023-06-18 02:16 | External Medical Summary | Summary of Care ---
Author Name Unknown Organization [facility] Address [address] [place] [address] Phone [phone] Care Team Providers Care Supervisor Painting Shipyard Name Role Phone Marcela Pinto MD Primary Care Provider + Reason for Visit * Reason Onset Date Comments Medication Problem 02/20/2023 Encounter Details Date Type Department Care Team Description 02/20/2023 Telephone General Internal Medicine [facility] 200 [facility] [place] [address] Marcela Pinto MD 200 [place] [address] Medication Problem Allergies Active Allergy Reactions Severity Noted Date Comments Valsartan 07/10/2010 Enalapril 05/21/2006 Escitalopram Oxalate Nausea/vomiting 10/11/2009 Nauseated Iodinated Contrast Media Nausea/vomiting 2009 IV Contrast Iodine Hives 12/18/2009 IV Contrast [place] Oil-Black Currant-Vit E 07/10/2010 Verapamil 03/21/2004 Bupropion Hcl 10/30/2009 Makes pt sick in the stomach documented as of this encounter (statuses as of 02/21/2023) Medications Medication Sig Dispensed Refills Start Date [...] Respimat 1.25 MCG/ACT Inhalation Aerosol Solution (Tiotropium [place] Monohydrate) Inhale 2 Puffs by mouth in [...] Vitro Strip (Glucose Blood) Test blood sugar twice daily. E11.9 100 Strip 5 3 02/21/20 23 Discontinu ed(Refill) documented as of this encounter (statuses as of 02/21/2023) Active Problems Problem Noted Date Full code [...] as of this encounter (statuses as of 02/21/2023) Resolved Problems Problem Noted Date Resolved Date Type 2 diabetes mellitus wit h stage 3a chronic kidney disease 05/21/2021 11/19/2021 Overview: Per CKD protocol Asthma in remission 01/09/2021 03/05/2021 Asthma, mild persistent 01/09/2021 03/05/20 21 Asthma, moderate persistent 01/09/202102/11 Asthma, severe persistent [...] Hypoxemia 10/08/2011 10/30/2015 Genetic Sleep Disorder Research Other*[id number] 07/25/2011 05/15/2016 COPD, moderate 07/19/2011 07/28/2019 Overview: [...] as of this encounter (statuses as of 02/21/2023) Immunizations Name Administration Dates Next Due COVID-19 mRNA, LNP-s, No Pre serve, 2-Dose Series (Pfizer) 08/21/2021,12/22/2020,2020 COVID-19, LNP-s, No Preserve , Tyler-sucrose, Ages 12+ (Pfizer) 04/16/2022 Hepatitis B, 20+ yrs 10/01/2017,04/21/2017,03/20 Pneumococcal Conjugate Vacc, 13 Valent (Prevnar) 03/28/2015 Pneumococcal Conjugate Vacci ne, 20-valent ([id number]) 04/01/2022 Pneumococcal Polysaccharide PPV23 (Pneumovax) 05/21/2006 Seasonal [...] Telephone Encounter - Marcela Pinto MD - 02/21/2023 10:34 AM EDT Noted. Signed. * Telephone Encounter - Nicole Saeed LPN - 02/20/2023 4:38 PM EDT Patient calling. Insurance will only pay for once a day testing since patient is not on insulin. * Telephone Encounter - Nicole Saeed LPN - 02/20/2023 4:37 PM EDT Pending Prescriptions: Disp Refills OneTouch Verio In Vitro Strip (Glucose Bl*100 St*5 Sig: Test blood sugar once daily. E11.9 Last Visit: 12/24/2022 (in office), 08/08/2020 (telemedicine) Next Visit: 03/27/2023 Last date the medication was ordered: 02/19/23 Patient Active Problem List Diagnosis Code Asthma [...] of less than 7.5% ([facility]) E11.9 Elevated plasma metanephrines R79.89 Irritable bowel syndrome with constipation K58.1 HECTOR (generalized anxiety disorder) F41.1 COPD, group B, 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 ([facility]) J44.9 Morbid obesity with BMI of 40.0-44.9, adult ([facility]) E66.01, Z68.41 Gastro-esophageal reflux disease without esophagitis K21.9 Paroxysmal atrial fibrillation ([facility]) I48.0 Chronic systolic heart failure ([facility]) I50.22 Pulmonary HTN ([facility]) I27.20 Chronic hypoxemic respiratory failure ([facility]) J96.11 Chronic kidney disease, stage 3a ([facility]) N18.31 Subclinical hyperthyroidism E05.90 History of ESBL E. coli infection Z86.19 Type 2 diabetes mellitus with stage 3a chronic kidney disease, without long- term current use ofinsulin ([facility]) E11.22, N18.31 Gastroparesis K31.84 Ischemic colitis ([facility]) K55.9 Asthma, mild persistent J45.30 Diverticulitis of intestine with abscess K57.80 Protein-calorie malnutrition ([facility]) E46 UTI due to extended-spectrum beta [...] Visit Internal Medicine Marcela Pinto MD 200 [facility] [place] [address] 04/02/2023 Office Visit Orthopedics Eliezer Gifford, DO [address] [place] [address] 09/18/2023 Office Visit Cardiology Hammad Lopez, [address] [place] [address] Health Maintenance Due Date Last Done Comments [...] Additional history exists CKD PHOS USE SMARTSET 33820 08/05/202307/14, 02/19/2022, 03/09/2021, Additional history exists DIABETES-FOOT EXAM 10/10/2023 10/10/2022, 0 11/19/2021, 12/21/2020, Additional history exists Depression Screening, Annual for Pts 12 and Over 10/10/2023 10/10/2022 O2 ASSESSMENT COMPLETED IN PAST YEAR FOR COPD 11/24/2023 11/24/2022 CKD HGB USE SMARTSET 33016 01/22/202401/21, 01/21/2023, 12/24/2022, Additional history exists DXA [...] Advance Directives occurred with: Patient Care Teams Supervisor Painting Shipyard Relationship Specialty Start Date End Date Marcela Pinto MD 200 [facility] [place] [address] PCP - General Internal Medicine 08/04/14 documented as of this encounter
--- OUTSIDE RECORDS SUMMARY | 2023-06-18 02:16 | External Medical Summary | Summary of Care ---
Author Name Unknown Organization [facility] Address [address] [place] [address] Phone [phone] Care Team Providers Care Lamp Wirer Name Role Phone Marcela Pinto MD Primary Care Provider + Reason for Visit * Reason Comments Joint Pain Right shoulder * Evaluate & Treat - Unlimited Visits (Within 30 days (routine)) - Authorized Specialty Diagnoses / Procedures Referred By Miguel Angel roe Referred To Contact Orthopaedic Surgery / Orthopedics Diagnoses Pain in joint of right shoulder Marcela Pinto MD [address] [place] [address] Referral ID Status Reason Start Date Expiration Date Visits Requested Visits Authorized [id number] Authorized Specialty Services Required 01/23/[phone] Encounter Details Date Type Department Care Team Description 04/02/2023 Office Visit Orthopaedics [facility] [address] [place] [address] Eliezer Gifford, [address] [place] [address] Primary osteoarthritis of right shoulder*; Nontraumatic complete tear of right rotator cuff Allergies Active Allergy Reactions Severity Noted Date Comments Valsartan 07/10/2010 Enalapril 05/21/2006 Escitalopram Oxalate Nausea/vomiting 10/11/2009 Nauseated Iodinated Contrast Media Nausea/vomiting 2009 IV Contrast Iodine Hives 12/18/2009 IV Contrast [place] Oil-Black Currant-Vit E 07/10/2010 Verapamil 03/21/2004 Bupropion [...] Respimat 1.25 MCG/ACT Inhalation Aerosol Solution (Tiotropium [place] Monohydrate) Inhale 2 Puffs by mouth in [...] persistent 01/09/2021 03/05/20 Asthma, moderate persistent 01/09/2021 052 01/2021 Asthma, [...] Hypoxemia 10/08/2011 10/30/2015 Genetic Sleep Disorder Research Other*[id number] 07/25/2011 05/15/2016 COPD, moderate 07/19/2011 07/28/2019 Overview: [...] mRNA, LNP-s, No Pre serve, 2-Dose Series ([employer]) 08/21/2021,12/22/2020,2020 COVID-19, LNP-s, No Preserve , Tyler-sucrose, Ages 12+ (Pfizer) 04/16/2022 Hepatitis B, 20+ yrs 10/01/2017,04/21/2017,03/20 Pneumococcal Conjugate Vacc, 13 Valent (Prevnar) 03/28/2015 Pneumococcal Conjugate Vacci ne, 20-valent ([id number]) 04/01/2022 Pneumococcal Polysaccharide PPV23 (Pneumovax) 05/21/2006 Seasonal [...] - 04/02/2023 11:30 AM EDT Nina Harrington [id number] Nina Harrington is a 82 year old female who presents for f/u to [facility] for right shoulder pain Nina [...] Respimat 1.25 MCG/ACT Inhalation Aerosol Solution (Tiotropium [place] Monohydrate) Inhale 2 Puffs by mouth in [...] glucose, see procedure note f/u 3 months, will do nerve block Primary osteoarthritis of right shoulder (Primary) - [...] Gifford DO Primary Care Sports Medicine Orthopaedics [address] [place] [address] Procedure note (shoulder glenohumoral joint injection) on right: pt moved several times during procedure and could not get onto exam table Time out: [...] with betadine and cleaned with alcohol swab. Glenohumoral joint injected using 3.5 inch, 22 gauge needle. Injected [...] Visit Internal Medicine [facility]a Pinto MD [facility] [place] [address] 09/18/2023 Office Visit Cardiology Hammad Lopez, [address] [place] [address] Scheduled Orders Name Type Priority Associated Diagnoses [...] Additional history exists CKD PHOS USE SMARTSET 42175 08/05/202307/14, 02/19/2022, 03/09/2021, Additional history exists DIABETES-FOOT EXAM 10/10/2023 10/10/2022, 0 11/19/2021, 12/21/2020, Additional history exists Depression Screening, Annual for Pts 12 and Over 10/10/2023 10/10/2022 O2 ASSESSMENT COMPLETED IN PAST YEAR FOR COPD 11/24/2023 11/24/2022 CKD HGB USE SMARTSET 83783 01/22/202401/21, 01/21/2023, 12/24/2022, Additional history exists DXA [...] Advance Directives occurred with: Patient Care Teams Lamp Wirer Relationship Specialty Start Date End Date Marcela Pinto MD [address] [place] [address] [place] [address] PCP - General Internal Medicine 08/04/14 documented as of this encounter
--- OUTSIDE RECORDS SUMMARY | 2023-06-18 02:17 | External Medical Summary | Summary of Care ---
Author Name Unknown Organization [facility] Address [address] [place] [address] Phone [phone] Care Team Providers Care Bus Greaser Name Role Phone Marcela Pinto MD Primary Care Provider + Encounter Details Date Type Department Care Team Description 02/10/2023 Telephone Orthopaedics [facility] [address] [place] [address] Eliezer Gifford, [address] [facility] [place] [address] Allergies Active Allergy Reactions Severity Noted Date Comments Valsartan 07/10/2010 Enalapril 05/21/2006 Escitalopram Oxalate Nausea/vomiting 10/11/2009 Nauseated Iodinated Contrast Media Nausea/vomiting 2009 IV Contrast Iodine Hives 12/18/2009 IV Contrast [place] Oil-Black Currant-Vit E 07/10/2010 Verapamil 03/21/2004 Bupropion Hcl 10/30/2009 Makes pt sick in the stomach documented as of this encounter (statuses as of 02/10/2023) Medications Medication Sig Dispensed Refills Start Date [...] Respimat 1.25 MCG/ACT Inhalation Aerosol Solution (Tiotropium [place] Monohydrate) Inhale 2 Puffs by mouth in [...] severity to be determined,COPD, moderate ([facility]) TAKE 1 PUFF BY MOUTH 4 TIMES A DAY 12 g 1 12/31/2022 Active Sertraline HCl 25 MG Oral Tablet (Zoloft)Indications :Major depressive disorder with single episode, in partial remission ([facility]),HECTOR (generalized anxiety disorder) TAKE 1 TABLET BY [...] sugar twice daily. E11.9 100 Strip 5 01/30/2023 Active True Metrix Blood Glucose Test In Vitro Strip (Glucose Blood)Indications:T ype 2 diabetes mellitus with hemoglobin A1c goal of less than 7.5% ([facility]) Test blood sugar twice daily. E11.9 100 Strip 5 02/05/2023 Active HYDROcodone-Acetami nophen 5-325 MG Oral TabletIndications:G eneralized osteoarthritis Take 1 Tablet by mouth every 6 hours as needed for Pain, Mild. 120 Tablet 0 02/06/2023 Active documented as of this encounter (statuses as of 02/10/2023) Active Problems Problem Noted Date Full code [...] as of this encounter (statuses as of 02/10/2023) Resolved Problems Problem Noted Date Resolved Date [...] Hypoxemia 10/08/2011 10/30/2015 Genetic Sleep Disorder Research Other*[id number] 07/25/2011 05/15/2016 COPD, moderate 07/19/2011 07/28/2019 Overview: [...] as of this encounter (statuses as of 02/10/2023) Immunizations Name Administration Dates Next Due COVID-19 mRNA, LNP-s, No Pre serve, 2-Dose Series (Pfizer) 08/21/2021,12/22/2020,2020 COVID-19, LNP-s, No Preserve , Tyler-sucrose, Ages 12+ (Pfizer) 04/16/2022 Hepatitis B, 20+ yrs 10/01/2017,04/21/2017,03/20 Pneumococcal Conjugate Vacc, 13 Valent (Prevnar) 03/28/2015 Pneumococcal Conjugate Vacci ne, 20-valent ([id number]) 04/01/2022 Pneumococcal Polysaccharide PPV23 (Pneumovax) 05/21/2006 Seasonal [...] encounter Miscellaneous Notes * Telephone Encounter - LISA Guerra - 02/10/2023 2:44 PM EDT Called and left message for patient to return call. documented in this encounter Plan of Treatment Upcoming Encounters Date Type Specialty Care Team Description 03/27/2023 Office Visit Internal Medicine Marcela Pinto MD 200 [place] [address] 04/02/2023 Office Visit Orthopedics Eliezer Gifford, DO [address] [place] [address] 09/18/2023 Office Visit Cardiology Hammad Lopez, DO [address] [place] [address] Health Maintenance Due Date Last Done Comments [...] Additional history exists CKD PHOS USE SMARTSET 49581 08/05/202307/14, 02/19/2022, 03/09/2021, Additional history exists DIABETES-FOOT EXAM 10/10/2023 10/10/2022, 0 11/19/2021, 12/21/2020, Additional history exists Depression Screening, Annual for Pts 12 and Over 10/10/2023 10/10/2022 O2 ASSESSMENT COMPLETED IN PAST YEAR FOR COPD 11/24/2023 11/24/2022 CKD HGB USE SMARTSET 26331 01/22/202401/21, 01/21/2023, 12/24/2022, Additional history exists DXA [...] Advance Directives occurred with: Patient Care Teams Bus Greaser Relationship Specialty Start Date End Date Marcela Pinto MD [address] [place] [address] [place] [address] PCP - General Internal Medicine 08/04/14 documented as of this encounter
--- OUTSIDE RECORDS SUMMARY | 2023-06-18 02:17 | External Medical Summary | Summary of Care ---
Author Name Unknown Organization [facility] Address [address] [place] [address] Phone [phone] Care Team Providers Care Drawing In Machine Tender Name Role Phone Marcela Pinto MD Primary Care Provider + Reason for Visit * Reason Onset Date Comments Medication Refill 01/30/2023 Encounter Details Date Type Department Care Team Description 01/30/2023 Refill General Internal Medicine [facility] 200 [facility] [place] [address] Marcela Pinto MD 200 [facility] [place] [address] Allergies Active Allergy Reactions Severity Noted Date Comments Valsartan 07/10/2010 Enalapril 05/21/2006 Escitalopram Oxalate Nausea/vomiting 10/11/2009 Nauseated Iodinated Contrast Media Nausea/vomiting 2009 IV Contrast Iodine Hives 12/18/2009 IV Contrast [employer] Oil-Black Currant-Vit E 07/10/2010 Verapamil 03/21/2004 Bupropion Hcl 10/30/2009 Makes pt sick in the stomach documented as of this encounter (statuses as of 01/30/2023) Medications Medication Sig Dispensed Refills Start Date [...] Respimat 1.25 MCG/ACT Inhalation Aerosol Solution (Tiotropium [place] Monohydrate) Inhale 2 Puffs by mouth in [...] the evening. 45 Tablet 6 01/03/2023 Active HYDROcodone-Acetami nophen 5-325 MG Oral TabletIndications:G eneralized osteoarthritis Take 1 Tablet by mouth every 6 hours as needed for Pain, Mild. 120 Tablet 0 01/10/2023 Active Vitamin D3 50 MCG (2000 UT) Oral Capsule Take 1 Capsule by mouth in the morning. 90 Capsule 1 01/27/2023 Active Magnesium Chloride 64 MG Oral Tablet Delayed Release (Mag-64) Take 1 Tablet by mouth in the morning. 90 Tablet 1 01/27/2023 Active OneTouch Verio In Vitro Strip (Glucose Blood) Test blood sugar twice daily. E11.9 100 Strip 5 01/30/2023 Active documented as of this encounter (statuses as of 01/30/2023) Active Problems Problem Noted Date Full code [...] as of this encounter (statuses as of 01/30/2023) Resolved Problems Problem Noted Date Resolved Date [...] Hypoxemia 10/08/2011 10/30/2015 Genetic Sleep Disorder Research Other*[id number] 07/25/2011 05/15/2016 COPD, moderate 07/19/2011 07/28/2019 Overview: [...] as of this encounter (statuses as of 01/30/2023) Immunizations Name Administration Dates Next Due COVID-19 mRNA, LNP-s, No Pre serve, 2-Dose Series ([employer]) 08/21/2021,12/22/2020,2020 COVID-19, LNP-s, No Preserve , Tyler-sucrose, Ages 12+ (Pfizer) 04/16/2022 Hepatitis B, 20+ yrs 10/01/2017,04/21/2017,03/20 Pneumococcal Conjugate Vacc, 13 Valent (Prevnar) 03/28/2015 Pneumococcal Conjugate Vacci ne, 20-valent ([id number]) 04/01/2022 Pneumococcal Polysaccharide PPV23 (Pneumovax) 05/21/2006 Seasonal [...] Telephone Encounter - Marcela Pinto MD - 01/30/2023 4:16 PM EDTSigned Prescriptions: Disp Refills OneTouch Verio In Vitro Strip (Glucose Blo*100 St*5 Sig: Test blood sugar twice daily. E11.9 Authorizing Provider: MARCELA PINTO * Telephone Encounter - Angelina Linder LPN - 01/30/2023 3:33 PM EDT Pending Prescriptions: Disp Refills OneTouch Verio In Vitro Strip (Glucose Bl*100 St*5 Sig: Test blood sugar twice daily. E11.9 Last Visit: 12/24/2022 (in office), 08/08/2020 (telemedicine) Next Visit: 03/27/2023 Patient Active Problem List Diagnosis Code Asthma [...] hemoglobin A1c goal of less than 7.5% ([facility]) E11.9 Elevated plasma metanephrines R79.89 Irritable bowel syndrome with constipation K58.1 HECTOR (generalized anxiety disorder) F41.1 COPD, group B, 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 ([facility]) J44.9 Morbid obesity with BMI of 40.0-44.9, adult ([facility]) E66.01, Z68.41 Gastro-esophageal reflux disease without esophagitis K21.9 Paroxysmal atrial fibrillation ([facility]) I48.0 Chronic systolic heart failure ([facility]) I50.22 Pulmonary HTN ([facility]) I27.20 Chronic hypoxemic respiratory failure ([facility]) J96.11 Chronic kidney disease, stage 3a ([facility]) N18.31 Subclinical hyperthyroidism E05.90 History of ESBL E. coli infection Z86.19 Type 2 diabetes mellitus with stage 3a chronic kidney disease, without long- term current use ofinsulin ([facility]) E11.22, N18.31 Gastroparesis K31.84 Ischemic colitis ([facility]) K55.9 Asthma, mild persistent J45.30 Diverticulitis of intestine with abscess K57.80 Protein-calorie malnutrition ([facility]) E46 UTI due to extended-spectrum beta lactamase [...] Internal Medicine Marcela Pinto MD [address] [place] [address] 04/02/2023 Office Visit Orthopedics Eliezer Gifford, DO [address] [place] [address] 09/18/2023 Office Visit Cardiology Hammad Lopez, DO [address] [place] [address] Health Maintenance Due Date Last Done Comments [...] Additional history exists CKD PHOS USE SMARTSET 28634 08/05/202307/14, 02/19/2022, 03/09/2021, Additional history exists DIABETES-FOOT EXAM 10/10/2023 10/10/2022, 0 11/19/2021, 12/21/2020, Additional history exists Depression Screening, Annual for Pts 12 and Over 10/10/2023 10/10/2022 O2 ASSESSMENT COMPLETED IN PAST YEAR FOR COPD 11/24/2023 11/24/2022 CKD HGB USE SMARTSET 20177 01/22/202401/21, 01/21/2023, 12/24/2022, Additional history exists DXA [...] Advance Directives occurred with: Patient Care Teams Drawing In Machine Tender Relationship Specialty Start Date End Date Marcela Pinto MD 200 [facility] [place] [address] PCP - General Internal Medicine 08/04/14 documented as of this encounter
--- OUTSIDE RECORDS SUMMARY | 2023-06-18 02:17 | External Medical Summary | Summary of Care ---
Author Name Unknown Organization [facility] Address [address] [place] [address] Phone [phone] Care Team Providers Care Manager Discovery Name Role Phone Marcela Pinto MD Primary Care Provider + Reason for Visit * Reason Onset Date Comments Advice 02/19/2023 Encounter Details Date Type Department Care Team Description 02/19/2023 Telephone General Internal Medicine [facility] 200 [place] [address] Marcela Pinto MD [address] [place] [address] Advice Allergies Active Allergy Reactions Severity Noted Date Comments Valsartan 07/10/2010 Enalapril 05/21/2006 Escitalopram Oxalate Nausea/vomiting 10/11/2009 Nauseated Iodinated Contrast Media Nausea/vomiting 2009 IV Contrast Iodine Hives 12/18/2009 IV Contrast [place] Oil-Black Currant-Vit E 07/10/2010 Verapamil 03/21/2004 Bupropion Hcl 10/30/2009 Makes pt sick in the stomach documented as of this encounter (statuses as of 02/19/2023) Medications Medication Sig Dispensed Refills Start Date [...] Respimat 1.25 MCG/ACT Inhalation Aerosol Solution (Tiotropium [place] Monohydrate) Inhale 2 Puffs by mouth in [...] s:Asthma with severity to be determined,COPD, moderate ([facility]) TAKE 1 PUFF BY MOUTH 4 TIMES A DAY 12 g 1 3 Active Sertraline HCl 25 MG Oral Tablet (Zoloft)Indications :Major depressive disorder with single episode, in partial remission ([facility]),HECTOR (generalized anxiety disorder) TAKE 1 [...] twice daily. E11.9 100 Strip 5 3 Active OneTouch Verio In Vitro Strip (Glucose Blood) Test blood sugar twice daily. E11.9 100 Strip 5 3 02/20/20 23 Discontinu ed(Medicat ion List Clean Up) True Metrix Blood Glucose Test In Vitro Strip (Glucose Blood)Indications:T ype 2 diabetes mellitus with hemoglobin A1c goal of less than 7.5% ([facility]) Test blood sugar twice daily. E11.9 100 Strip 5 3 02/20/20 23 Discontinu ed(Medicat ion List Clean Up) documented as of this encounter (statuses as of 02/19/2023) Active Problems Problem Noted Date Full code [...] as of this encounter (statuses as of 02/19/2023) Resolved Problems Problem Noted Date Resolved Date [...] Hypoxemia 10/08/2011 10/30/2015 Genetic Sleep Disorder Research Other*[id number] 07/25/2011 05/15/2016 COPD, moderate 07/19/2011 07/28/2019 Overview: [...] as of this encounter (statuses as of 02/19/2023) Immunizations Name Administration Dates Next Due COVID-19 mRNA, LNP-s, No Pre serve, 2-Dose Series (ABS) 08/21/2021,12/22/2020,2020 COVID-19, LNP-s, No Preserve , Tyler-sucrose, Ages 12+ (Pfizer) 04/16/2022 Hepatitis B, 20+ yrs 10/01/2017,04/21/2017,03/20 Pneumococcal Conjugate Vacc, 13 Valent (Prevnar) 03/28/2015 Pneumococcal Conjugate Vacci ne, 20-valent ([id number]) 04/01/2022 Pneumococcal Polysaccharide PPV23 (Pneumovax) 05/21/2006 Seasonal [...] encounter Miscellaneous Notes * Telephone Encounter - Chantel Miranda LPN - 02/19/2023 11:52 AM EDT Pt calling stating [facility] didn't correct test strip order. Pt need one touch verio strips. Order was sent on 01/30 to [facility] with confirmed receipt. Pt was told the wrong order was sent. I call [facility] spoke with Sigrid she states the only order they have is for the true metrix test strips ordered 02/05. They do not have the onetouch order, she stated a new order would need to be sent as pt is on Medicare and order must be electronic placed. I canceled the true metrix order. Pending is correct order for onetouch to resend. documented in this encounter Plan of Treatment Upcoming Encounters Date Type Specialty Care Team Description 03/27/2023 Office Visit Internal Medicine Marcela Pinto MD [address] [place] [address] 04/02/2023 Office Visit Orthopedics Eliezer Gifford, DO [address] [place] [address] 09/18/2023 Office Visit Cardiology Hammad Lopez, DO [address] [place] [address] Health Maintenance Due Date Last Done Comments [...] Additional history exists CKD PHOS USE SMARTSET 95919 08/05/202307/14, 02/19/2022, 03/09/2021, Additional history exists DIABETES-FOOT EXAM 10/10/2023 10/10/2022, 0 11/19/2021, 12/21/2020, Additional history exists Depression Screening, Annual for Pts 12 and Over 10/10/2023 10/10/2022 O2 ASSESSMENT COMPLETED IN PAST YEAR FOR COPD 11/24/2023 11/24/2022 CKD HGB USE SMARTSET 61613 01/22/202401/21, 01/21/2023, 12/24/2022, Additional history exists DXA [...] Advance Directives occurred with: Patient Care Teams Manager Discovery Relationship Specialty Start Date End Date Marcela Pinto MD 200 [facility] [place], [place] [id number] PCP - General Internal Medicine 08/04/14 documented as of this encounter
--- OUTSIDE RECORDS SUMMARY | 2023-06-18 02:17 | External Medical Summary | Summary of Care ---
Author Name Unknown Organization [facility] Address [address] [place] [address] Phone [phone] Care Team Providers Care Certified Appliance Service Technician Name Role Phone Marcela Pinto MD Primary Care Provider + Reason for Visit * Reason Comments eRx-Medication Refill Encounter Details Date Type Department Care Team Description 02/19/2023 Refill General Internal Medicine [facility] [address] [place] [address] Marcela Pinto MD [address] [place] [address] Hyperthyroidism Allergies Active Allergy Reactions Severity Noted Date Comments Valsartan 07/10/2010 Enalapril 05/21/2006 Escitalopram Oxalate Nausea/vomiting 10/11/2009 Nauseated Iodinated Contrast Media Nausea/vomiting 2009 IV Contrast Iodine Hives 12/18/2009 IV Contrast [place] Oil-Black Currant-Vit E 07/10/2010 Verapamil 03/21/2004 Bupropion [...] Respimat 1.25 MCG/ACT Inhalation Aerosol Solution (Tiotropium [place] Monohydrate) Inhale 2 Puffs by mouth in [...] daily. E11.9 100 Strip 5 01/30/2023 Active HYDROcodone-Acetami nophen 5-325 MG Oral TabletIndications:G [...] Hypoxemia 10/08/2011 10/30/2015 Genetic Sleep Disorder Research Other*[id number] 07/25/2011 05/15/2016 COPD, moderate 07/19/2011 07/28/2019 Overview: [...] mRNA, LNP-s, No Pre serve, 2-Dose Series (En Noir) 08/21/2021,12/22/2020,2020 COVID-19, LNP-s, No Preserve , Tyler-sucrose, Ages 12+ (Pfizer) 04/16/2022 Hepatitis B, 20+ yrs 10/01/2017,04/21/2017,03/20 Pneumococcal Conjugate Vacc, 13 Valent (Prevnar) 03/28/2015 Pneumococcal Conjugate Vacci ne, 20-valent ([id number]) 04/01/2022 Pneumococcal Polysaccharide PPV23 (Pneumovax) 05/21/2006 Seasonal [...] encounter Miscellaneous Notes * Telephone Encounter - Pablo Cr [facility] - 02/19/2023 5:10 PM EDT Refused Prescriptions: Disp Refills methIMAzole 10 MG Oral Tablet (Tapazole) 90 Tab*1 Sig: TAKE 1 TABLET BY MOUTH EVERY DAYRefused By: PABLO CR for Refusal: Dose needs clarificatio n documented in this encounter Plan of Treatment Upcoming Encounters Date Type Specialty Care Team Description 03/27/2023 Office Visit Internal Medicine Marcela Pinto MD 200 [place] [address] 04/02/2023 Office Visit Orthopedics Eliezer Gifford, DO [address] [place] [address] 09/18/2023 Office Visit Cardiology Hammad Lopez, DO [address] [place] [address] Health Maintenance Due Date Last Done Comments [...] Additional history exists CKD PHOS USE SMARTSET 41166 08/05/202307/14, 02/19/2022, 03/09/2021, Additional history exists DIABETES-FOOT EXAM 10/10/2023 10/10/2022, 0 11/19/2021, 12/21/2020, Additional history exists Depression Screening, Annual for Pts 12 and Over 10/10/2023 10/10/2022 O2 ASSESSMENT COMPLETED IN PAST YEAR FOR COPD 11/24/2023 11/24/2022 CKD HGB USE SMARTSET 95723 01/22/202401/21, 01/21/2023, 12/24/2022, Additional history exists DXA [...] Advance Directives occurred with: Patient Care Teams Certified Appliance Service Technician Relationship Specialty Start Date End Date Marcela Pinto MD [address] [place] [address] PCP - General Internal Medicine 08/04/14 documented as of this encounter
--- OUTSIDE RECORDS SUMMARY | 2023-06-18 02:17 | External Medical Summary | Summary of Care ---
Author Name Unknown Organization [facility] Address [address] [place] [address] Phone [phone] Care Team Providers Care Supervisor Felling Bucking Name Role Phone Marcela Pinto MD Primary Care Provider + Reason for Visit * Reason Onset Date Comments Medication Refill 01/30/2023 Encounter Details Date Type Department Care Team Description 01/30/2023 Refill General Internal Medicine [facility] [place] [address] Marcela Pinto MD 200 [facility] [place] [address] Type 2 diabetes mellitus with hemoglobin A1c goal of less than 7.5% ([facility])* Allergies Active Allergy Reactions Severity Noted Date Comments Valsartan 07/10/2010 Enalapril 05/21/2006 Escitalopram Oxalate Nausea/vomiting 10/11/2009 Nauseated Iodinated Contrast Media Nausea/vomiting 2009 IV Contrast Iodine Hives 12/18/2009 IV Contrast [place] Oil-Black Currant-Vit E 07/10/2010 Verapamil 03/21/2004 Bupropion Hcl 10/30/2009 Makes pt sick in the stomach documented as of this encounter (statuses as of 02/05/2023) Medications Medication Sig Dispensed Refills Start Date [...] Respimat 1.25 MCG/ACT Inhalation Aerosol Solution (Tiotropium [place] Monohydrate) Inhale 2 Puffs by mouth in [...] as of this encounter (statuses as of 02/05/2023) Active Problems Problem Noted Date Full code [...] as of this encounter (statuses as of 02/05/2023) Resolved Problems Problem Noted Date Resolved Date [...] Hypoxemia 10/08/2011 10/30/2015 Genetic Sleep Disorder Research Other*[id number] 07/25/2011 05/15/2016 COPD, moderate 07/19/2011 07/28/2019 Overview: [...] as of this encounter (statuses as of 02/05/2023) Immunizations Name Administration Dates Next Due COVID-19 mRNA, LNP-s, No Pre serve, 2-Dose Series ([employer]) 08/21/2021,12/22/2020,2020 COVID-19, LNP-s, No Preserve , Tyler-sucrose, Ages 12+ (Pfizer) 04/16/2022 Hepatitis B, 20+ yrs 10/01/2017,04/21/2017,03/20 Pneumococcal Conjugate Vacc, 13 Valent (Prevnar) 03/28/2015 Pneumococcal Conjugate Vacci ne, 20-valent ([id number]) 04/01/2022 Pneumococcal Polysaccharide PPV23 (Pneumovax) 05/21/2006 Seasonal [...] as of this encounter Miscellaneous Notes * Addendum Note - Saba Fitch LPN - 02/05/2023 7:44 AM EDTAddended by: SABA FITCH on: 02/05/2023 07:44 AM Modules accepted: Orders * Telephone Encounter - Saba Fitch LPN - 02/05/2023 7:42 AM EDT Received fax from [employer] requesting an alternative for test strips. They suggest true metrix glucose test strip. Rx pended. * Telephone Encounter - Marcela Pinto MD - 01/30/2023 4:16 PM EDTSigned Prescriptions: Disp Refills OneTouch Verio In Vitro Strip (Glucose Blo*100 St*5 Sig: Test blood sugar twice daily. E11.9 Authorizing Provider: MARCELA PINTO * Telephone Encounter - Angelina LinderNICOL - 01/30/2023 3:33 PM EDT Pending Prescriptions: [...] less than 7.5% ([facility]) E11.9 Elevated plasma metanephrines R79.89 Irritable bowel syndrome with constipation K58.1 HECTOR (generalized anxiety disorder) F41.1 COPD, group B, 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 ([facility]) J44.9 Morbid obesity with BMI of 40.0-44.9, adult ([facility]) E66.01, Z68.41 Gastro-esophageal reflux disease without esophagitis K21.9 Paroxysmal atrial fibrillation ([facility]) I48.0 Chronic systolic heart failure ([facility]) I50.22 Pulmonary HTN ([facility]) I27.20 Chronic hypoxemic respiratory failure ([facility]) J96.11 Chronic kidney disease, stage 3a ([facility]) N18.31 Subclinical hyperthyroidism E05.90 History of ESBL E. coli infection Z86.19 Type 2 diabetes mellitus with stage 3a chronic kidney disease, without long- term current use ofinsulin ([facility]) E11.22, N18.31 Gastroparesis K31.84 Ischemic colitis ([facility]) K55.9 Asthma, mild persistent J45.30 Diverticulitis of intestine with abscess K57.80 Protein-calorie malnutrition ([facility]) E46 UTI due to extended-spectrum beta lactamase [...] Visit Internal Medicine Marcela Pinto MD 200 [facility], [place] [address] 04/02/2023 Office Visit Orthopedics Eliezer Gifford, [address] [place] [address] 09/18/2023 Office Visit Cardiology Hammad Lopez DO [address] [place] [address] Health Maintenance Due Date Last Done Comments [...] Additional history exists CKD PHOS USE SMARTSET 43835 08/05/202307/14, 02/19/2022, 03/09/2021, Additional history exists DIABETES-FOOT EXAM 10/10/2023 10/10/2022, 0 11/19/2021, 12/21/2020, Additional history exists Depression Screening, Annual for Pts 12 and Over 10/10/2023 10/10/2022 O2 ASSESSMENT COMPLETED IN PAST YEAR FOR COPD 11/24/2023 11/24/2022 CKD HGB USE SMARTSET 29192 01/22/202401/21, 01/21/2023, 12/24/2022, Additional history exists DXA [...] less than 7.5% ([facility])- Primary documented in this encounter Advance Directives [...] Directives occurred with: Patient Care Teams Supervisor Felling Bucking Relationship Specialty Start Date End Date Marcela Pinto MD [address] [place] [address] [place] [address] PCP - General Internal Medicine 08/04/14 documented as of this encounter
--- OUTSIDE RECORDS SUMMARY | 2023-06-18 02:17 | External Medical Summary | Summary of Care ---
Author Name Unknown Organization [facility] Address [address] [place] [address] Phone [phone] Care Team Providers Care Sieve Repairer Name Role Phone Marcela Pinto MD Primary Care Provider + Reason for Visit * Reason Comments eRx-Medication Refill Encounter Details Date Type Department Care Team Description 01/27/2023 Refill General Internal Medicine [facility] 200 [facility] [address] Marcela Pinto MD [address] [place] [address] Hyperthyroidism Allergies Active Allergy Reactions Severity Noted Date Comments Valsartan 07/10/2010 Enalapril 05/21/2006 Escitalopram Oxalate Nausea/vomiting 10/11/2009 Nauseated Iodinated Contrast Media Nausea/vomiting 2009 IV Contrast Iodine Hives 12/18/2009 IV Contrast [place] Oil-Black Currant-Vit E 07/10/2010 Verapamil 03/21/2004 Bupropion Hcl 10/30/2009 Makes pt sick in the stomach documented as of this encounter (statuses as of 01/28/2023) Medications Medication Sig Dispensed Refills Start Date [...] Respimat 1.25 MCG/ACT Inhalation Aerosol Solution (Tiotropium [place] Monohydrate) Inhale 2 Puffs by mouth in [...] the morning. 90 Tablet 1 01/27/2023 Active documented as of this encounter (statuses as of 01/28/2023) Active Problems Problem Noted Date Full code [...] as of this encounter (statuses as of 01/28/2023) Resolved Problems Problem Noted Date Resolved Date [...] Hypoxemia 10/08/2011 10/30/2015 Genetic Sleep Disorder Research Other*[id number] 07/25/2011 05/15/2016 COPD, moderate 07/19/2011 07/28/2019 Overview: [...] as of this encounter (statuses as of 01/28/2023) Immunizations Name Administration Dates Next Due COVID-19 mRNA, LNP-s, No Pre serve, 2-Dose Series ([employer]) 08/21/2021,12/22/2020,2020 COVID-19, LNP-s, No Preserve , Tyler-sucrose, Ages 12+ (Pfizer) 04/16/2022 Hepatitis B, 20+ yrs 10/01/2017,04/21/2017,03/20 Pneumococcal Conjugate Vacc, 13 Valent (Prevnar) 03/28/2015 Pneumococcal Conjugate Vacci ne, 20-valent ([id number]) 04/01/2022 Pneumococcal Polysaccharide PPV23 (Pneumovax) 05/21/2006 Seasonal [...] encounter Miscellaneous Notes * Telephone Encounter - Benedict Tolbert [facility] - 01/28/2023 2:02 PM EDTRefused Prescriptions: Disp Refills methIMAzole 10 MG Oral Tablet (Tapazole) 90 Tab*1 Sig: TAKE 1 TABLET BY MOUTH EVERY DAYRefused By: BENEDICT TOLBERT for Refusal: Refill Not Appropriate------- documented in this encounter Plan of Treatment Upcoming Encounters Date Type Specialty Care Team Description 02/03/2023 Office Visit Orthopedics Naty Fontana MD [address] [place] [address] 03/27/2023 Office Visit Internal Medicine Marcela Pinto MD 200 [facility] [place] [address] 04/02/2023 Office Visit Orthopedics Eliezer Gifford DO [address] [place] [address] 09/18/2023 Office Visit Cardiology Hammad Lopez, [address] [place] [address] Health Maintenance Due Date Last Done Comments [...] Additional history exists CKD PHOS USE SMARTSET 86304 08/05/202307/14, 02/19/2022, 03/09/2021, Additional history exists DIABETES-FOOT EXAM 10/10/2023 10/10/2022, 0 11/19/2021, 12/21/2020, Additional history exists Depression Screening, Annual for Pts 12 and Over 10/10/2023 10/10/2022 O2 ASSESSMENT COMPLETED IN PAST YEAR FOR COPD 11/24/2023 11/24/2022 CKD HGB USE SMARTSET 54226 01/22/202401/21, 01/21/2023, 12/24/2022, Additional history exists DXA [...] Advance Directives occurred with: Patient Care Teams Sieve Repairer Relationship Specialty Start Date End Date Marcela Pinto MD 200 [facility] [place] [address] PCP - General Internal Medicine 08/04/14 documented as of this encounter
--- OUTSIDE RECORDS SUMMARY | 2023-06-18 02:17 | External Medical Summary | Summary of Care ---
Author Name Unknown Organization [facility] Address [address] [place] [address] Phone [phone] Care Team Providers Care Seasonal Package Handler Name Role Phone Marcela Pinto MD Primary Care Provider + Encounter Details Date Type Department Care Team Description 02/10/2023 Telephone Orthopaedics [facility] [address] [place] [address] Eliezer Gifford, [address] [facility] [place] [address] Allergies Active Allergy Reactions Severity Noted Date Comments Valsartan 07/10/2010 Enalapril 05/21/2006 Escitalopram Oxalate Nausea/vomiting 10/11/2009 Nauseated Iodinated Contrast Media Nausea/vomiting 2009 IV Contrast Iodine Hives 12/18/2009 IV Contrast [place] Oil-Black Currant-Vit E 07/10/2010 Verapamil 03/21/2004 Bupropion [...] Respimat 1.25 MCG/ACT Inhalation Aerosol Solution (Tiotropium [place] Monohydrate) Inhale 2 Puffs by mouth in [...] severity to be determined,COPD, moderate ([facility]) TAKE 1 PUFF BY MOUTH 4 TIMES A DAY 12 g 1 12/31/2022 Active Sertraline HCl 25 MG Oral Tablet (Zoloft)Indications :Major depressive disorder with single episode, in partial remission ([facility]),HECTOR (generalized anxiety disorder) TAKE 1 [...] goal of less than 7.5% ([facility]) Test blood sugar twice daily. E11.9 100 [...] low 45%, mean 85%, <89% 6:18 hrs, SOERN 18.7 AHP Sleep apnea, obstructive 10/02/2011 Overview: [...] Hypoxemia 10/08/2011 10/30/2015 Genetic Sleep Disorder Research Other*[id number] 07/25/2011 05/15/2016 COPD, moderate 07/19/2011 07/28/2019 Overview: [...] (Prevnar) 03/28/2015 Pneumococcal Conjugate Vacci ne, 20-valent ([id number]) 04/01/2022 Pneumococcal Polysaccharide PPV23 (Pneumovax) 05/21/2006 Seasonal [...] Visit Internal Medicine Marcela Pinto MD 200 [place] [address] 04/02/2023 Office Visit Orthopedics Eliezer Gifford, DO [address] [place] [address] 09/18/2023 Office Visit Cardiology Hammad Lopez, DO [address] [place] [address] Health Maintenance Due Date Last Done Comments [...] Additional history exists CKD PHOS USE SMARTSET 43538 08/05/202307/14, 02/19/2022, 03/09/2021, Additional history exists DIABETES-FOOT EXAM 10/10/2023 10/10/2022, 0 11/19/2021, 12/21/2020, Additional history exists Depression Screening, Annual for Pts 12 and Over 10/10/2023 10/10/2022 O2 ASSESSMENT COMPLETED IN PAST YEAR FOR COPD 11/24/2023 11/24/2022 CKD HGB USE SMARTSET 81170 01/22/202401/21, 01/21/2023, 12/24/2022, Additional history exists DXA [...] Advance Directives occurred with: Patient Care Teams Seasonal Package Handler Relationship Specialty Start Date End Date Marcela Pinto MD 200 [place] [address] PCP - General Internal Medicine 08/04/14 documented as of this encounter
--- OUTSIDE RECORDS SUMMARY | 2023-06-18 02:17 | External Medical Summary | Summary of Care ---
Author Name Unknown Organization [facility] Address [address] [place] [address] Phone [phone] Care Team Providers Care Corporate Travel Counselor Name Role Phone Marcela Pinto MD Primary Care Provider + Reason for Visit * Reason Onset Date Comments Medication Refill 02/06/2023 Encounter Details Date Type Department Care Team Description 02/06/2023 Refill General Internal Medicine [facility] 200 [facility] [place] [address] Marcela Pinto MD 200 [place] [address] GENERAL OSTEOARTHROSIS Allergies Active Allergy Reactions Severity Noted Date Comments Valsartan 07/10/2010 Enalapril 05/21/2006 Escitalopram Oxalate Nausea/vomiting 10/11/2009 Nauseated Iodinated Contrast Media Nausea/vomiting 2009 IV Contrast Iodine Hives 12/18/2009 IV Contrast [place] Oil-Black Currant-Vit E 07/10/2010 Verapamil 03/21/2004 Bupropion Hcl 10/30/2009 Makes pt sick in the stomach documented as of this encounter (statuses as of 02/06/2023) Medications Medication Sig Dispensed Refills Start Date [...] Respimat 1.25 MCG/ACT Inhalation Aerosol Solution (Tiotropium [place] Monohydrate) Inhale 2 Puffs by mouth in [...] s:Asthma with severity to be determined,COPD, moderate ([facility]) TAKE 1 PUFF BY MOUTH 4 TIMES A DAY 12 g 3 Active Sertraline HCl 25 MG Oral Tablet (Zoloft)Indications :Major depressive disorder with single episode, in partial remission ([facility]),HECTOR (generalized anxiety disorder) TAKE 1 [...] by mouth in the morning. 90 Capsule 3 Active Magnesium Chloride 64 MG Oral Tablet Delayed Release (Mag-64) Take 1 Tablet by mouth in the morning. 90 Tablet 3 Active OneTouch Verio In Vitro Strip (Glucose Blood) Test blood sugar twice daily. E11.9 100 Strip 5 3 Active True Metrix Blood Glucose Test In Vitro Strip (Glucose Blood)Indications:T ype 2 diabetes mellitus with hemoglobin A1c goal of less than 7.5% ([facility]) Test blood sugar twice daily. [...] for Pain, Mild. 120 Tablet 0 3 02/07/20 23 Discontinu ed(Refill) documented as of this encounter (statuses as of 02/06/2023) Active Problems Problem Noted Date Full code [...] as of this encounter (statuses as of 02/06/2023) Resolved Problems Problem Noted Date Resolved Date [...] Hypoxemia 10/08/2011 10/30/2015 Genetic Sleep Disorder Research Other*[id number] 07/25/2011 05/15/2016 COPD, moderate 07/19/2011 07/28/2019 Overview: [...] as of this encounter (statuses as of 02/06/2023) Immunizations Name Administration Dates Next Due COVID-19 mRNA, LNP-s, No Pre serve, 2-Dose Series ([employer]) 08/21/2021,12/22/2020,2020 COVID-19, LNP-s, No Preserve , Tyler-sucrose, Ages 12+ (Pfizer) 04/16/2022 Hepatitis B, 20+ yrs 10/01/2017,04/21/2017,03/20 Pneumococcal Conjugate Vacc, 13 Valent (Prevnar) 03/28/2015 Pneumococcal Conjugate Vacci ne, 20-valent ([id number]) 04/01/2022 Pneumococcal Polysaccharide PPV23 (Pneumovax) 05/21/2006 Seasonal [...] Telephone Encounter - Marcela Pinto MD - 02/06/2023 4:27 PM EDTSigned Prescriptions: Disp Refills HYDROcodone-Acetaminophen 5-325 MG Oral Ta*120 Ta*0 Sig: Take 1 Tablet by mouth every 6 hours as needed for Pain, Mild. Authorizing Provider: MARCELA PINTO * Telephone Encounter - Cari Hsu LPN - 02/06/2023 3:59 PM EDT Pending Prescriptions: Disp Refills HYDROcodone-Acetaminophen 5-325 MG Oral T*120 Ta*0 Sig: Take 1 Tablet by mouth every 6 hours as needed for Pain, Mild. Last Visit: 12/24/2022 (in office), 08/08/2020 (telemedicine) Next Visit: 03/27/2023 Last date the medication was ordered: 01/10/2023 Patient Active Problem List Diagnosis Code Asthma [...] hemoglobin A1c goal of less than 7.5% ([facility]) E11.9 Elevated plasma metanephrines R79.89 Irritable bowel syndrome with constipation K58.1 HECTOR (generalized anxiety disorder) F41.1 COPD, group B, 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 ([facility]) J44.9 Morbid obesity with BMI of 40.0-44.9, adult ([facility]) E66.01, Z68.41 Gastro-esophageal reflux disease without esophagitis K21.9 Paroxysmal atrial fibrillation ([facility]) I48.0 Chronic systolic heart failure ([facility]) I50.22 Pulmonary HTN ([facility]) I27.20 Chronic hypoxemic respiratory failure ([facility]) J96.11 Chronic kidney disease, stage 3a ([facility]) N18.31 Subclinical hyperthyroidism E05.90 History of ESBL E. coli infection Z86.19 Type 2 diabetes mellitus with stage 3a chronic kidney disease, without long- term current use ofinsulin ([facility]) E11.22, N18.31 Gastroparesis K31.84 Ischemic colitis ([facility]) K55.9 Asthma, mild persistent J45.30 Diverticulitis of intestine with abscess K57.80 Protein-calorie malnutrition ([facility]) E46 UTI due to extended-spectrum [...] Visit Internal Medicine Marcela Pinto MD 200 [place] [address] 04/02/2023 Office Visit Orthopedics Eliezer Gifford, [address] [place] [address] 09/18/2023 Office Visit Cardiology Hammad Lopez, [address] [place] [address] Health Maintenance Due Date Last Done Comments [...] Additional history exists CKD PHOS USE SMARTSET 84674 08/05/202307/14, 02/19/2022, 03/09/2021, Additional history exists DIABETES-FOOT EXAM 10/10/2023 10/10/2022, 0 11/19/2021, 12/21/2020, Additional history exists Depression Screening, Annual for Pts 12 and Over 10/10/2023 10/10/2022 O2 ASSESSMENT COMPLETED IN PAST YEAR FOR COPD 11/24/2023 11/24/2022 CKD HGB USE SMARTSET 77060 01/22/202401/21, 01/21/2023, 12/24/2022, Additional history exists DXA [...] Advance Directives occurred with: Patient Care Teams Corporate Travel Counselor Relationship Specialty Start Date End Date Marcela Pinto MD [address] [place] [address] [place] [address] PCP - General Internal Medicine 08/04/14 documented as of this encounter
--- OUTSIDE RECORDS SUMMARY | 2023-06-18 02:17 | External Medical Summary | Summary of Care ---
Author Name Unknown Organization [facility] Address [address] [place] [address] Phone [phone] Care Team Providers Care Black Puller Name Role Phone Marcela Pinto MD Primary Care Provider + Encounter Details Date Type Department Care Team Description 02/10/2023 Telephone Orthopaedics [facility] [address] [place] [address] Eliezer Gifford, [address] [facility] [place] [address] Allergies Active Allergy Reactions Severity Noted Date Comments Valsartan 07/10/2010 Enalapril 05/21/2006 Escitalopram Oxalate Nausea/vomiting 10/11/2009 Nauseated Iodinated Contrast Media Nausea/vomiting 2009 IV Contrast Iodine Hives 12/18/2009 IV Contrast [place] Oil-Black Currant-Vit E 07/10/2010 Verapamil 03/21/2004 Bupropion Hcl 10/30/2009 Makes pt sick in the stomach documented as of this encounter (statuses as of 02/12/2023) Medications Medication Sig Dispensed Refills Start Date [...] Respimat 1.25 MCG/ACT Inhalation Aerosol Solution (Tiotropium [place] Monohydrate) Inhale 2 Puffs by mouth in [...] s:Asthma with severity to be determined,COPD, moderate ([facility]) TAKE 1 PUFF BY MOUTH 4 TIMES A DAY 12 g 1 12/31/2022 Active Sertraline HCl 25 MG Oral Tablet (Zoloft)Indications :Major depressive disorder with single episode, in partial remission ([facility]),HECTOR (generalized anxiety disorder) TAKE 1 TABLET [...] hemoglobin A1c goal of less than 7.5% ([facility]) Test blood sugar twice daily. E11.9 100 Strip 5 02/05/2023 Active HYDROcodone-Acetami nophen 5-325 MG Oral TabletIndications:G eneralized osteoarthritis Take 1 Tablet by mouth every 6 hours as needed for Pain, Mild. 120 Tablet 0 02/06/2023 Active documented as of this encounter (statuses as of 02/12/2023) Active Problems Problem Noted Date Full code [...] as of this encounter (statuses as of 02/12/2023) Resolved Problems Problem Noted Date Resolved Date [...] Hypoxemia 10/08/2011 10/30/2015 Genetic Sleep Disorder Research Other*[id number] 07/25/2011 05/15/2016 COPD, moderate 07/19/2011 07/28/2019 Overview: [...] as of this encounter (statuses as of 02/12/2023) Immunizations Name Administration Dates Next Due COVID-19 mRNA, LNP-s, No Pre serve, 2-Dose Series (Pfizer) 08/21/2021,12/22/2020,2020 COVID-19, LNP-s, No Preserve , Tyler-sucrose, Ages 12+ (Pfizer) 04/16/2022 Hepatitis B, 20+ yrs 10/01/2017,04/21/2017,03/20 Pneumococcal Conjugate Vacc, 13 Valent (Prevnar) 03/28/2015 Pneumococcal Conjugate Vacci ne, 20-valent ([id number]) 04/01/2022 Pneumococcal Polysaccharide PPV23 (Pneumovax) 05/21/2006 Seasonal [...] * Telephone Encounter - LISA Guerra - 02/12/2023 9:23 AM EDT Called and left message for patient and daughter Stephani to return call. * Telephone Encounter - LISA Guerra - 02/10/2023 2:44 PM EDT Called and left message for patient to return call. documented in this encounter Plan of Treatment Upcoming Encounters Date Type Specialty Care Team Description 03/27/2023 Office Visit Internal Medicine Marcela Pinto MD [address] [facility] [place] [address] 04/02/2023 Office Visit Orthopedics Eliezer Gifford DO [address] [place] [address] 09/18/2023 Office Visit Cardiology Hammad Lopez, [address] [place] [address] Health Maintenance Due Date Last Done Comments [...] Additional history exists CKD PHOS USE SMARTSET 71670 08/05/202307/14, 02/19/2022, 03/09/2021, Additional history exists DIABETES-FOOT EXAM 10/10/2023 10/10/2022, 0 11/19/2021, 12/21/2020, Additional history exists Depression Screening, Annual for Pts 12 and Over 10/10/2023 10/10/2022 O2 ASSESSMENT COMPLETED IN PAST YEAR FOR COPD 11/24/2023 11/24/2022 CKD HGB USE SMARTSET 83827 01/22/202401/21, 01/21/2023, 12/24/2022, Additional history exists DXA [...] Advance Directives occurred with: Patient Care Teams Black Puller Relationship Specialty Start Date End Date Marcela Pinto MD [address] [facility] [place] [address] PCP - General Internal Medicine 08/04/14 documented as of this encounter
--- OUTSIDE RECORDS SUMMARY | 2023-06-18 02:18 | External Medical Summary ---
Author Name Unknown Address Unknown Organization K01:[facility] [place] [address] [place] [address] Laboratory Report Ordering Provider Test Date Status ERON CURRIE 01/21/2023 11:04:34 Final Observation Date Value Abnormality Reference (Units ) Status BUN 01/21/2023 11:04:34 21 Above high normal 6-20 (mg/dL) Final Creatinine 01/21/2023 11:04:34 1.1 Above high normal 0.5-1.0 (mg/dL) Final Glomerular filtration rate/1.73 sq M.predicted [Volume Rate/Area] in Serum, Plasma or Blood by Creatinine-based formula (CKD-EPI) 01/21/2023 11:04:34 48 Below low normal >=60 (mL/min) Final Performing Location [facility] [place] [address] [place] [address]
--- OUTSIDE RECORDS SUMMARY | 2023-06-18 02:18 | External Medical Summary | Summary of Care ---
Author Name Unknown Organization [facility] Address [address] [place] [address] Phone [phone] Care Team Providers Care Travel Clerk Name Role Phone Marcela Pinto MD Primary Care Provider + Reason for Visit * Reason Onset Date Comments case management 01/20/2023 Encounter Details Date Type Department Care Team Description 01/20/2023 Printing Supplies Sales Representative Telephone Ancillary 1st Floor, [place] [address] [place] [address] Leigh Coffman LPN [address] [place], [place] [id number] case management Allergies Active Allergy Reactions Severity Noted Date Comments Valsartan 07/10/2010 Enalapril 05/21/2006 Escitalopram Oxalate Nausea/vomiting 10/11/2009 Nauseated Iodinated Contrast Media Nausea/vomiting 2009 IV Contrast Iodine Hives 12/18/2009 IV Contrast [place] Oil-Black Currant-Vit E 07/10/2010 Verapamil 03/21/2004 Bupropion Hcl 10/30/2009 Makes pt sick in the stomach documented as of this encounter (statuses as of 01/20/2023) Medications Medication Sig Dispensed Refills Start Date [...] EVERY BEDTIME 3 mL 4 12/11/2022 Active Magnesium Chloride 64 MG Oral Tablet Delayed Release (Mag-64) Take 1 Tablet by mouth in the morning. 30 Tablet 1 12/11/2022 Active One Daily Multivitamin Women Oral Tablet one pill each day 30 Tablet 0 12/11/2022 Active Polyethylene Glycol 3350 17 GM Oral Packet (Miralax) Take 1 Packet by mouth 2 times a day as needed for Constipation. 60 Each 0 12/11/2022 Active Spiriva Respimat 1.25 MCG/ACT Inhalation Aerosol Solution (Tiotropium [place] Monohydrate) Inhale 2 Puffs by mouth in the morning. 4 g 0 12/11/2022 Active Ventolin HFA 108 (90 Base) MCG/ACT Inhalation Aerosol Solution Inhale 2 Puffs by mouth in the morning and 2 Puffs before bedtime. 18 g 1 12/11/2022 Active Vitamin D3 50 MCG (2000 UT) Oral Capsule Take 1 Capsule by mouth in the morning. 30 Capsule 5 12/11/2022 Active Atorvastatin Calcium 40 MG Oral [...] Pain, Mild. 120 Tablet 0 01/10/2023 Active documented as of this encounter (statuses as of 01/20/2023) Active Problems Problem Noted Date Full code [...] rhinitis 07/19/2011 Benign neoplasm of adrenal gland 03/30/2 010 Asthma with severity to be determined Generalized osteoarthritis documented as of this encounter (statuses as of 01/20/2023) Resolved Problems Problem Noted Date Resolved Date [...] Hypoxemia 10/08/2011 10/30/2015 Genetic Sleep Disorder Research Other*[id number] 07/25/2011 05/15/2016 COPD, moderate 07/19/2011 07/28/2019 Overview: [...] as of this encounter (statuses as of 01/20/2023) Immunizations Name Administration Dates Next Due COVID-19 mRNA, LNP-s, No Pre serve, 2-Dose Series ([employer]) 08/21/2021,12/22/2020,2020 COVID-19, LNP-s, No Preserve , Tyler-sucrose, Ages 12+ (Pfizer) 04/16/2022 Hepatitis B, 20+ yrs 10/01/2017,04/21/2017,03/20 Pneumococcal Conjugate Vacc, 13 Valent (Prevnar) 03/28/2015 Pneumococcal Conjugate Vacci ne, 20-valent ([id number]) 04/01/2022 Pneumococcal Polysaccharide PPV23 (Pneumovax) 05/21/2006 Seasonal [...] encounter Miscellaneous Notes * Telephone Encounter - Leigh Coffman LPN - 01/20/2023 11:17 AM EDT Follow up received from Lacy MOELLER. [facility] does not supply medic Alert buttons in patient's county SAJAN will be receiving list of suppliers that can refer patient to for medical alert button I made phone call to Stephani Sch[place] and left a message detailing this information and informed herthat SAJAN would follow up documented in this encounter Plan of Treatment Upcoming Encounters Date Type Specialty Care Team Description 03/27/2023 Office Visit Internal Medicine Marcela Pinto MD [address] [facility], [place] [address] 04/02/2023 Office Visit Orthopedics Eliezer Gifford, [address] [place] [address] 09/18/2023 Office Visit Cardiology Hammad Lopez, [address] [place] [address] Health Maintenance Due Date Last Done Comments Alpha-1 Antitrypsin 1956 Zoster Vaccines (3 of 3) 05/27/2022 04/01/2022, 06/14 COVID-19 Vaccine (5 - Booster for Pfizer series) 06/11/2022 04/16/2022, 08/21/2021, 12/22/2020, Additional history exists Albumin/Creatinine Ratio 02/19/2023 022, 07/09/2019, 07/27/2018, Additional history exists DIABETES-EYE EXAM 03/08/2023 03/08/2022, , 08/07/2020, Additional history exists HgA1C 05/24/2023 11/24/2022, 05/14, 02/19/2022, Additional history exists GFR - Renal Function 06/26/2023 12/24/2022, 12/11/2022, 12/06/2022, Additional history exists CKD PHOS USE SMARTSET 07536 08/05/202307/14, 02/19/2022, 03/09/2021, Additional history exists DIABETES-FOOT EXAM 10/10/2023 10/10/2022, 0 11/19/2021, 12/21/2020, Additional history exists Depression Screening, Annual for Pts 12 and Over 10/10/2023 10/10/2022 O2 ASSESSMENT COMPLETED IN PAST YEAR FOR COPD 11/24/2023 11/24/2022 CKD HGB USE SMARTSET 92062 12/25/202312/24, 12/24/2022, 12/18/2022, Additional history exists DXA Scan 08/08/2025 08/08/2020, 04/13, 06/19/2010, Additional history exists DTaP,Tdap,and Td Vaccines (2 - Td or Tdap) 06/04/2028 06/04/2018, 02/28/2009 Hepatitis B Completed 10/01/2017, 04/12, 03/20/2017 COLONOSCOPY-EVERY 3 YRS AGES 18-100 Discontinued 05/08/2020, 02/28/2018, 06/05/2017, Additional history exists Pneumococcal Vaccine: 65+ Years Completed 04/01/2022, 03/28/2015, 05/21/2006 Influenza Vaccine (FLU shot) Completed 06/27/2022, 07/10/2021, 06/22/2020, Additional history exists GARDASIL-HPV IMMUNIZATION SERIES Aged Out No longer eligible based on patient's age to complete this topic MENINGOCOCCAL (MENACTRA/MENVEO) Aged Out No longer eligible based on patient's age to complete this topic documented as of this encounter Medical Devices Not on filedocumented as of this encounter Additional Health Concerns Infection Onset Date Last Indicated Resolved Time ESBL Comment:[place] 11/1911/19/2022 11/25/2022 documented as of this encounter Advance Directives [...] Advance Directives occurred with: Patient Care Teams Travel Clerk Relationship Specialty Start Date End Date Marcela Pinto MD [address] [facility] [place] [address] PCP - General Internal Medicine 08/04/14 documented as of this encounter
--- OUTSIDE RECORDS SUMMARY | 2023-06-18 02:18 | External Medical Summary | Summary of Care ---
Author Name Unknown Organization [facility] Address [address] [place] [address] Phone [phone] Care Team Providers Care Classified Advertising Supervisor Name Role Phone Marcela Pinto MD Primary Care Provider + Reason for Referral * Evaluate & Treat - Unlimited Visits (Within 30 days (routine)) - Authorized Specialty Diagnoses / Procedures Referred By Miguel Angel roe Referred To Contact Physical Therapy / Physical Medicine And Rehab Diagnoses Pain in joint of right shoulder Blair, Marcela Moise MD [address] [place] [address] Referral ID Status Reason Start Date Expiration Date Visits Requested Visits Authorized [id number] Authorized Specialty Services Required 01/23/[phone] Question Answer Referral Priority Within 30 days (routine) Comments Worsening right shoulder pain. Please eval. Thanks * Evaluate & Treat - Unlimited Visits (Within 30 days (routine)) - Authorized Specialty Diagnoses / Procedures Referred By Miugel Angel roe Referred To Contact Orthopaedic Surgery / Orthopedics Diagnoses Pain in joint of right shoulder Blair, Marcela Moise MD [address] [place] [address] Referral ID Status Reason Start Date Expiration Date Visits Requested Visits Authorized [id number] Authorized Specialty Services Required 01/23/[phone] Question Answer Referral Priority Within 30 days (routine) What body part is the patient being seen for? Shoulder What condition is the patient being seen for? Sprain/Strain/Tear/Other Comments Worsening right shoulder pain. Please eval. Thanks Reason for Visit * Reason Onset Date Comments FYI 01/22/2023 Encounter Details Date Type Department Care Team Description 01/22/2023 Telephone General Internal Medicine [facility] [place] [address] [place] [address] Marcela Pinto MD [address] [facility] [place] [address] FYI Allergies Active Allergy Reactions Severity Noted Date Comments Valsartan 07/10/2010 Enalapril 05/21/2006 Escitalopram Oxalate Nausea/vomiting 10/11/2009 Nauseated Iodinated Contrast Media Nausea/vomiting 2009 IV Contrast Iodine Hives 12/18/2009 IV Contrast [place] Oil-Black Currant-Vit E 07/10/2010 Verapamil 03/21/2004 Bupropion Hcl 10/30/2009 Makes pt sick in the stomach documented as of this encounter (statuses as of 01/24/2023) Medications Medication Sig Dispensed Refills Start Date [...] Respimat 1.25 MCG/ACT Inhalation Aerosol Solution (Tiotropium [place] Monohydrate) Inhale 2 Puffs by mouth in [...] as of this encounter (statuses as of 01/24/2023) Active Problems Problem Noted Date Full code [...] Per CKD protocol Chronic systolic heart failure Pulmonary HTN 03/05/2021 Chronic hypoxemic respiratory failure [...] as of this encounter (statuses as of 01/24/2023) Resolved Problems Problem Noted Date Resolved Date [...] Hypoxemia 10/08/2011 10/30/2015 Genetic Sleep Disorder Research Other*[id number] 07/25/2011 05/15/2016 COPD, moderate 07/19/2011 07/28/2019 Overview: [...] as of this encounter (statuses as of 01/24/2023) Immunizations Name Administration Dates Next Due COVID-19 mRNA, LNP-s, No Pre serve, 2-Dose Series ([email or web address]) 08/21/2021,12/22/2020,2020 COVID-19, LNP-s, No Preserve , Tyler-sucrose, Ages 12+ (Pfizer) 04/16/2022 Hepatitis B, 20+ yrs 10/01/2017,04/21/2017,03/20 Pneumococcal Conjugate Vacc, 13 Valent (Prevnar) 03/28/2015 Pneumococcal Conjugate Vacci ne, 20-valent ([id number]) 04/01/2022 Pneumococcal Polysaccharide PPV23 (Pneumovax) 05/21/2006 Seasonal [...] Miscellaneous Notes * Telephone Encounter - JORDAN Pritchard - 01/24/2023 2:23 PM EDT Scheduled denied scheduling PT at this time * Telephone Encounter - Marcela Pinto MD - 01/23/2023 4:32 PM EDT Can refer to Ortho. referal is in. If agreeable can do PT too which will help her. * Telephone Encounter - JORDAN Cano - 01/22/2023 2:01 PM EDT Pt was D/C from Home health today and did indicate she was having right shoulder pain.She was rating 7-8 out of 10 pain level. Refused to go to ER as she is taking over the counter meds and receives injections. documented in this encounter Plan of Treatment Upcoming Encounters Date Type Specialty Care Team Description 02/03/2023 Office Visit Orthopedics Naty Fontana MD [address] [place] [address] 03/27/2023 Office Visit Internal Medicine Marcela Pinto MD [address] [place] [address], [place] [address] 04/02/2023 Office Visit Orthopedics Eliezer Gifford, DO [address] [place] [address] 09/18/2023 Office Visit Cardiology Hammad Lopez, DO [address] [place] [address] Scheduled Referrals Name Type Priority Associated Diagnoses Order Schedule ORTHOPAEDICS REFERRAL OP Referral Within 30 days (routine) Pain in joint of right shoulder Ordered: 01/23/2023 PHYSICAL THERAPY REFERRAL OP Referral Within 30 days (routine) Pain in joint of right shoulder Ordered: 01/23/2023 Health Maintenance Due Date Last Done Comments [...] Additional history exists CKD PHOS USE SMARTSET 31219 08/05/202307/14, 02/19/2022, 03/09/2021, Additional history exists DIABETES-FOOT EXAM 10/10/2023 10/10/2022, 0 11/19/2021, 12/21/2020, Additional history exists Depression Screening, Annual for Pts 12 and Over 10/10/2023 10/10/2022 O2 ASSESSMENT COMPLETED IN PAST YEAR FOR COPD 11/24/2023 11/24/2022 CKD HGB USE SMARTSET 34396 01/22/202401/21, 01/21/2023, 12/24/2022, Additional history exists DXA [...] as of this encounter Visit Diagnoses Diagnosis Pain in joint of right shoulder- Primary Pain in joint, shoulder region documented in this encounter Additional Health Concerns Infection Onset Date Last Indicated Resolved Time ESBL Comment:[facility] 11/1911/19/2022 11/25/2022 01/24/2023 12:21 AM [...] Advance Directives occurred with: Patient Care Teams Classified Advertising Supervisor Relationship Specialty Start Date End Date Marcela Pinto MD [address] [place] [address] PCP - General Internal Medicine 08/04/14 documented as of this encounter
--- OUTSIDE RECORDS SUMMARY | 2023-06-18 02:18 | External Medical Summary | Summary of Care ---
Author Name Unknown Organization [facility] Address [address] [place] [address] Phone [phone] Care Team Providers Care Hairspring Adjuster Name Role Phone Marcela Pinto MD Primary Care Provider + Reason for Visit * Reason Comments Outpatient Testing Encounter Details Date Type Department Care Team Description 01/21/2023 Laboratory Laboratory [address] [place] [id number] [place] [id number] Anemia of chronic disease; Reactive thrombocytosis; Asthma with severity to be determined; COPD, group B, 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 ([facility]); Iron deficiency anemia, unspecified iron deficiency anemia type; B12 deficiency Allergies Active Allergy Reactions Severity Noted Date Comments Valsartan 07/10/2010 Enalapril 05/21/2006 Escitalopram Oxalate Nausea/vomiting 10/11/2009 Nauseated Iodinated Contrast Media Nausea/vomiting 2009 IV Contrast Iodine Hives 12/18/2009 IV Contrast [place] Oil-Black Currant-Vit E 07/10/2010 Verapamil 03/21/2004 Bupropion Hcl 10/30/2009 Makes pt sick in the stomach documented as of this encounter (statuses as of 01/21/2023) Medications Medication Sig Dispensed Refills Start Date [...] Respimat 1.25 MCG/ACT Inhalation Aerosol Solution (Tiotropium Calcium Monohydrate) Inhale 2 Puffs by mouth in [...] as of this encounter (statuses as of 01/21/2023) Active Problems Problem Noted Date Full code [...] as of this encounter (statuses as of 01/21/2023) Resolved Problems Problem Noted Date Resolved Date [...] Hypoxemia 10/08/2011 10/30/2015 Genetic Sleep Disorder Research Other*[id number] 07/25/2011 05/15/2016 COPD, moderate 07/19/2011 07/28/2019 Overview: [...] as of this encounter (statuses as of 01/21/2023) Immunizations Name Administration Dates Next Due COVID-19 mRNA, LNP-s, No Pre serve, 2-Dose Series ([employer] 08/21/2021,12/22/2020,2020 COVID-19, LNP-s, No Preserve , Tyler-sucrose, Ages 12+ (Pfizer) 04/16/2022 Hepatitis B, 20+ yrs 10/01/2017,04/21/2017,03/20 Pneumococcal Conjugate Vacc, 13 Valent (Prevnar) 03/28/2015 Pneumococcal Conjugate Vacci ne, 20-valent ([id number]) 04/01/2022 Pneumococcal Polysaccharide PPV23 (Pneumovax) 05/21/2006 Seasonal [...] Office Visit Internal Medicine Marcela Pinto MD [address] [place] [address], [place] [address] 04/02/2023 Office Visit Orthopedics Eliezer Gifford, DO [address] [place] [address] 09/18/2023 Office Visit Cardiology Hammad Lopez, DO [address] [place] [address] Pending Results Name Type Priority Associated Diagnoses Date /Time CBC WITH WBC DIFFERENTIAL Lab STAT Anemia of chronic disease Reactive thrombocytosis 01/21/2023 11:04 AM EDT COMPREHENSIVE METABOLIC PANEL Lab STAT Anemia of chronic disease Reactive thrombocytosis 01/21/2023 11:04 AM EDT IRON SCREEN, INCLUDING TIBC Lab STAT Anemia of chronic disease Reactive thrombocytosis 01/21/2023 11:04 AM EDT FERRITIN Lab STAT Anemia of chronic disease Reactive thrombocytosis 01/21/2023 11:04 AM EDT OHBCA-2-QPRAEYUIELD, QN Lab Routine Asthma with severity to be determined COPD, group B, 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 ([facility]) 01/21/2023 11:04 AM EDT VITAMIN B12 Lab Routine B12 deficiency 01/21/2023 11:04 AM EDT FOLIC ACID Lab Routine B12 deficiency 01/21/2023 11:04 AM EDT CBC Lab STAT Anemia of chronic disease Reactive thrombocytosis 01/21/2023 11:04 AM EDT DIFFERENTIAL, AUTOMATED Lab STAT Anemia of chronic disease Reactive thrombocytosis 01/21/2023 11:04 AM EDT Health Maintenance Due Date Last [...] Additional history exists CKD PHOS USE SMARTSET 36471 08/05/202307/14, 02/19/2022, 03/09/2021, Additional history exists DIABETES-FOOT EXAM 10/10/2023 10/10/2022, 0 11/19/2021, 12/21/2020, Additional history exists Depression Screening, Annual for Pts 12 and Over 10/10/2023 10/10/2022 O2 ASSESSMENT COMPLETED IN PAST YEAR FOR COPD 11/24/2023 11/24/2022 CKD HGB USE SMARTSET 05100 12/25/202312/24, 12/24/2022, 12/18/2022, Additional history exists DXA [...] as of this encounter Visit Diagnoses Diagnosis Anemia of chronic disease Anemia of other chronic disease Reactive thrombocytosis Asthma with severity to be determined COPD, group B, 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 ([facility]) Iron deficiency anemia, unspecified iron deficiency anemia type B12 deficiency Other B-complex deficiencies documented in this encounter Additional Health Concerns Infection Onset Date Last Indicated Resolved Time ESBL Comment:[facility] 11/1911/19/2022 11/25/2022 documented as of this encounter [...] Advance Directives occurred with: Patient Care Teams Hairspring Adjuster Relationship Specialty Start Date End Date Marcela Pinto MD [address] [place] [address] PCP - General Internal Medicine 08/04/14 documented as of this encounter
--- OUTSIDE RECORDS SUMMARY | 2023-06-18 02:18 | External Medical Summary ---
Author Name Unknown Address Unknown Organization K01[place] [place] [address] [place] [facility] [place] [address] Laboratory Report Ordering Provider Test Date Status ERON CURRIE 01/21/2023 11:04:34 Final Observation Date Value Abnormality Reference (Units ) Status SYNC LEUKOCYTES IN BLOOD BY AUTOMATED COUNT 01/21/2023 11:04:34 9.17 4.00-10.80 (K/uL) Final Segs 01/21/2023 11:04:34 45.1 40.0-75.0 (%) Final Lymphs % 01/21/2023 11:04:34 37.3 18.0-42.0 (%) Final Monos 01/21/2023 11:04:34 9.5 1.0-11.0 (%) Final Eosinophils 01/21/2023 11:04:34 6.9 Above high normal 0.0-6.0 (%) Final Basos 01/21/2023 11:04:34 0.7 0.0-2.0 (%) Final Immature Granulocyte, Percent 01/21/2023 11:04:34 0.5 0.0-2.0 (%) Final Absolute Segs 01/21/2023 11:04:34 4.14 1.80-7.70 (K/uL) Final Lymphs, absolute 01/21/2023 11:04:34 3.42 1.00-4.80 (K/ul) Final Monos, Abs 01/21/2023 11:04:34 0.87 0.00-1.10 (K/uL) Final Eos, Abs 01/21/2023 11:04:34 0.63 0.00-0.70 (K/uL) Final Basos, Abs 01/21/2023 11:04:34 0.06 0.00-0.20 (K/uL) Final Immature Granulocytes, Number 01/21/2023 11:04:34 0.05 0.00-0.20 (K/uL) Final Performing Location [facility] [place] [facility] [place] [address]
--- OUTSIDE RECORDS SUMMARY | 2023-06-18 02:18 | External Medical Summary | Summary of Care ---
Author Name Unknown Organization [facility] Address [address] [place] [address] Phone [phone] Care Team Providers Care Medical Equipment Technician Name Role Phone Marcela Pinto MD Primary Care Provider + Reason for Visit * Reason Onset Date Comments Medication Refill 01/24/2023 Encounter Details Date Type Department Care Team Description 01/24/2023 Refill Family [address] [address] Mabel Paul PA-C [address] [place] [address] Allergies Active Allergy Reactions Severity Noted Date Comments Valsartan 07/10/2010 Enalapril 05/21/2006 Escitalopram Oxalate Nausea/vomiting 10/11/2009 Nauseated Iodinated Contrast Media Nausea/vomiting 2009 IV Contrast Iodine Hives 12/18/2009 IV Contrast [place] Oil-Black Currant-Vit E 07/10/2010 Verapamil 03/21/2004 Bupropion Hcl 10/30/2009 Makes pt sick in the stomach documented as of this encounter (statuses as of 01/27/2023) Medications Medication Sig Dispensed Refills Start Date [...] Respimat 1.25 MCG/ACT Inhalation Aerosol Solution (Tiotropium [place] Monohydrate) Inhale 2 Puffs by mouth in [...] s:Asthma with severity to be determined,COPD, moderate ([facility]) TAKE 1 PUFF BY MOUTH [...] the evening. 45 Tablet 6 3 Active HYDROcodone-Acetami nophen 5-325 MG Oral TabletIndications:G eneralized osteoarthritis Take 1 Tablet by mouth every 6 hours as needed for Pain, Mild. 120 Tablet 0 3 Active Vitamin D3 50 MCG (2000 UT) Oral Capsule Take 1 Capsule by mouth in the morning. 90 Capsule 1 3 Active Magnesium Chloride 64 MG Oral Tablet Delayed Release (Mag-64) Take 1 Tablet by mouth in the morning. 90 Tablet 1 3 Active Magnesium Chloride 64 MG Oral Tablet Delayed Release (Mag-64) Take 1 Tablet by mouth in the morning. 30 Tablet 1 3 01/25/20 23 Discontinu ed(Refill) Vitamin D3 50 MCG (2000 UT) Oral Capsule Take 1 Capsule by mouth in the morning. 30 Capsule 5 3 01/25/20 23 Discontinu ed(Refill) documented as of this encounter (statuses as of 01/27/2023) Active Problems Problem Noted Date Full code [...] as of this encounter (statuses as of 01/27/2023) Resolved Problems Problem Noted Date Resolved Date [...] Hypoxemia 10/08/2011 10/30/2015 Genetic Sleep Disorder Research Other*[id number] 07/25/2011 05/15/2016 COPD, moderate 07/19/2011 07/28/2019 Overview: [...] as of this encounter (statuses as of 01/27/2023) Immunizations Name Administration Dates Next Due COVID-19 mRNA, LNP-s, No Pre serve, 2-Dose Series (Trippy Bandz) 08/21/2021,12/22/2020,2020 COVID-19, LNP-s, No Preserve , Tyler-sucrose, Ages 12+ (Pfizer) 04/16/2022 Hepatitis B, 20+ yrs 10/01/2017,04/21/2017,03/20 Pneumococcal Conjugate Vacc, 13 Valent (Prevnar) 03/28/2015 Pneumococcal Conjugate Vacci ne, 20-valent ([id number]) 04/01/2022 Pneumococcal Polysaccharide PPV23 (Pneumovax) 05/21/2006 Seasonal [...] Telephone Encounter - Marcela Pinto MD - 01/27/2023 12:18 PM EDTSigned Prescriptions: Disp Refills Vitamin D3 50 MCG (1999 UT) Oral Capsule 90 Cap*1 Sig: Take 1 Capsule by mouth in the morning. Authorizing Provider: MARCELA PINTO Magnesium Chloride 64 MG Oral Tablet Delay*90 Tab*1 Sig: Take 1 Tablet by mouth in the morning. Authorizing Provider: MARCELA PINTO --------- * Telephone Encounter - LISA Pedro - 01/24/2023 10:07 AM EDT Pending Prescriptions: Disp Refills Vitamin D3 50 MCG (2000 UT) Oral Capsule 90 Cap*1 Sig: Take 1 Capsule by mouth in the morning. Magnesium Chloride 64 MG Oral Tablet Delay*90 Tab*1 Sig: Take 1 Tablet by mouth in the morning. * Telephone Encounter - LISA Pedro ASSIST - 01/24/2023 10:06 AM EDT [facility] requesting 90 day supply * Telephone Encounter - JORDAN Jolley - 01/24/2023 9:21 AM EDT Did you pend patient's preferred pharmacy and medication before forwarding?yes Pharmacy: [id number] [facility] Pending Prescriptions: Disp Refills Vitamin D3 50 MCG (1999) Oral Capsule 30 Cap*5 Sig: Take 1 Capsule by mouth in the morning. Magnesium Chloride 64 MG Oral Tablet Amanda*30 Tab*1 Sig: Take 1 Tablet by mouth in the morning. Last Visit: 09/21/2021 (in office), Visit date not found (telemedicine) Next Visit: Visit date not found If no future appointments scheduled, and last appointment is greater than a year ago, please schedule patient for a follow-up appointment Last date the medication was ordered: 12/11/2022 90 DAY SUPPLY PER [facility] Is this request for a controlled substance?No [...] Fontana MD [address] [place] [address] 03/27/2023 Office Visit Internal Medicine Marcela Pinto MD [address] [place] [address] 04/02/2023 Office Visit Orthopedics Eliezer Gifford, DO [address] [place] [address] 09/18/2023 Office Visit Cardiology Hammad Lopez, [address] [place] [address] Health Maintenance Due Date Last Done Comments [...] Additional history exists CKD PHOS USE SMARTSET 74520 08/05/202307/14, 02/19/2022, 03/09/2021, Additional history exists DIABETES-FOOT EXAM 10/10/2023 10/10/2022, 0 11/19/2021, 12/21/2020, Additional history exists Depression Screening, Annual for Pts 12 and Over 10/10/2023 10/10/2022 O2 ASSESSMENT COMPLETED IN PAST YEAR FOR COPD 11/24/2023 11/24/2022 CKD HGB USE SMARTSET 09431 01/22/202401/21, 01/21/2023, 12/24/2022, Additional history exists DXA [...] Onset Date Last Indicated Resolved Time ESBL Comment:[facility] 2/11/19/2022 11/25/2022 01/24/2023 12:21 AM EDT documented as [...] Advance Directives occurred with: Patient Care Teams Medical Equipment Technician Relationship Specialty Start Date End Date Marcela Pinto MD [address] [place] [address] [place] [address] PCP - General Internal Medicine 08/04/14 documented as of this encounter
--- OUTSIDE RECORDS SUMMARY | 2023-06-18 02:18 | External Medical Summary ---
Author Name Unknown Address Unknown Organization K01:[facility] - [address] [place] [address] Laboratory Report Ordering Provider Test Date Status ERON CURRIE 01/21/2023 11:04:34 Final Observation Date Value Abnormality Reference (Units ) Status Iron 01/21/2023 11:04:34 34 33-151 (ug/dL) Final Iron-binding capacity 01/21/2023 11:04:34 286 250-425 (ug/dL) Final Transferrin Sat % 01/21/2023 11:04:34 12 Below low normal 15-55 (%) Final Performing Location [facility] - [address] [place] [address]
--- OUTSIDE RECORDS SUMMARY | 2023-06-18 02:18 | External Medical Summary | Summary of Care ---
Author Name Unknown Organization [facility] Address [address] [place] [address] Phone [phone] Care Team Providers Care Regional Sales Associate Name Role Phone Marcela Pinto MD Primary Care Provider + Reason for Visit * Reason Onset Date Comments Follow Up 01/20/2023 Encounter Details Date Type Department Care Team Description 01/20/2023 Scheduled Telephone Care Coordination [address] [place], [place] [id number] [facility] Carpenter Helper [address] [place] [address] [place] [address] Allergies Active Allergy Reactions Severity Noted Date Comments Valsartan 07/10/2010 Enalapril 05/21/2006 Escitalopram Oxalate Nausea/vomiting 10/11/2009 Nauseated Iodinated Contrast Media Nausea/vomiting 2009 IV Contrast Iodine Hives 12/18/2009 IV Contrast [place] Oil-Black Currant-Vit E 07/10/2010 Verapamil 03/21/2004 Bupropion Hcl 10/30/2009 Makes pt sick in the stomach documented as of this encounter (statuses as of 01/22/2023) Medications Medication Sig Dispensed Refills Start Date [...] Respimat 1.25 MCG/ACT Inhalation Aerosol Solution (Tiotropium [place] Monohydrate) Inhale 2 Puffs by mouth in [...] as of this encounter (statuses as of 01/22/2023) Active Problems Problem Noted Date Full code [...] as of this encounter (statuses as of 01/22/2023) Resolved Problems Problem Noted Date Resolved Date [...] Hypoxemia 10/08/2011 10/30/2015 Genetic Sleep Disorder Research Other*[id number] 07/25/2011 05/15/2016 COPD, moderate 07/19/2011 07/28/2019 Overview: [...] as of this encounter (statuses as of 01/22/2023) Immunizations Name Administration Dates Next Due COVID-19 mRNA, LNP-s, No Pre serve, 2-Dose Series (SiVerion) 08/21/2021,12/22/2020,2020 COVID-19, LNP-s, No Preserve , Tyler-sucrose, Ages 12+ (Pfizer) 04/16/2022 Hepatitis B, 20+ yrs 10/01/2017,04/21/2017,03/20 Pneumococcal Conjugate Vacc, 13 Valent (Prevnar) 03/28/2015 Pneumococcal Conjugate Vacci ne, 20-valent ([id number]) 04/01/2022 Pneumococcal Polysaccharide PPV23 (Pneumovax) 05/21/2006 Seasonal [...] encounter Miscellaneous Notes * Telephone Encounter - Leonardo Connolly - 01/21/2023 12:56 PM EDT List of PERS providers mailed to patient. * Telephone Encounter - Leonardo Connolly - 01/20/2023 10:38 AM EDT Call to [facility]. Spoke with [facility] re: medical alert button. Unfortunately, the agencyno longer offers this program d/t decrease in funding. Milli will send over a list of suppliers, which [facility] will share with patient. Call to patient to make aware. documented in this encounter Plan of Treatment Upcoming Encounters Date Type Specialty Care Team Description 03/27/2023 Office Visit Internal Medicine Marcela Pinto MD [address] [facility] [place] [address] 04/02/2023 Office Visit Orthopedics Eliezer Gifford, DO [address] [place] [address] 09/18/2023 Office Visit Cardiology Hammad Lopez, [address] [place] [address] Health Maintenance Due Date Last Done Comments [...] Additional history exists CKD PHOS USE SMARTSET 31499 08/05/202307/14, 02/19/2022, 03/09/2021, Additional history exists DIABETES-FOOT EXAM 10/10/2023 10/10/2022, 0 11/19/2021, 12/21/2020, Additional history exists Depression Screening, Annual for Pts 12 and Over 10/10/2023 10/10/2022 O2 ASSESSMENT COMPLETED IN PAST YEAR FOR COPD 11/24/2023 11/24/2022 CKD HGB USE SMARTSET 16024 01/22/202401/21, 01/21/2023, 12/24/2022, Additional history exists DXA [...] Onset Date Last Indicated Resolved Time ESBL Comment:[facility] 11/1911/19/2022 11/25/2022 documented as of this encounter [...] Advance Directives occurred with: Patient Care Teams Regional Sales Associate Relationship Specialty Start Date End Date Marcela Pinto MD [address] [place], [place] [address] [address] PCP - General Internal Medicine 08/04/14 documented as of this encounter
--- OUTSIDE RECORDS SUMMARY | 2023-06-18 02:18 | External Medical Summary ---
Author Name Unknown Address Unknown Organization K01:[facility]ATORY [facility] - [address] [facility] [address] Laboratory Report Ordering Provider Test Date Status JOSE A JOHNSON 01/21/2023 11:04:34 Final Observation Date Value Abnormality Reference (Units ) Status Folic Acid 01/21/2023 11:04:34 6.7 >4.5 (ng/ mL) Final Performing Location [facility] - [address] [facility] [address]
--- OUTSIDE RECORDS SUMMARY | 2023-06-18 02:18 | External Medical Summary ---
Author Name Unknown Address Unknown Organization K01:[facility] - [address] [place] [address] Laboratory Report Ordering Provider Test Date Status ERON CURRIE 01/21/2023 11:04:34 Final Observation Date Value Abnormality Reference (Units ) Status WBC, Total 01/21/2023 11:04:34 9.17 4.00-10.80 (K/uL) Final RBC 01/21/2023 11:04:34 3.46 3.85-5.15 (M/uL) Final Hemoglobin 01/21/2023 11:04:34 10.0 Below low normal 12.0-15.3 (g/dL) Final HCT 01/21/2023 11:04:34 34.0 Below low normal 36.0-45.2 (%) Final MCV 01/21/2023 11:04:34 98.3 81.5-97.5 (fL) Final MCH 01/21/2023 11:04:34 28.9 27.0-34.0 (pg) Final MCHC 01/21/2023 11:04:34 29.4 32.0-36.0 (g/dL) Final RDW 01/21/2023 11:04:34 14.9 11.5-15.5 (%) Final Platelets 01/21/2023 11:04:34 365 140-400 (K/uL) Final MPV 01/21/2023 11:04:34 10.6 6.6-11.1 (fL) Final Nucleated erythrocytes/100 leukocytes [Ratio] in Blood by Automated count 01/21/2023 11:04:34 0 <=0 (/100 WBCs) Final Performing Location [facility] - [address] [place] [address]
--- OUTSIDE RECORDS SUMMARY | 2023-06-18 02:18 | External Medical Summary | Summary of Care ---
Author Name Unknown Organization [facility] Address [address] [place] [address] Phone [phone] Care Team Providers Care Pallet Stone Inserter Name Role Phone Marcela Pinto MD Primary Care Provider + Encounter Details Date Type Department Care Team Description 01/22/2023 Lab[facility] MaintenanceDoorperson Practice [facility] [address] [place] [address] Joanna Smith, BIJAL Medical home patient encounter* Allergies Active Allergy Reactions Severity Noted Date Comments Valsartan 07/10/2010 Enalapril 05/21/2006 Escitalopram Oxalate Nausea/vomiting 10/11/2009 Nauseated Iodinated Contrast Media Nausea/vomiting 2009 IV Contrast Iodine Hives 12/18/2009 IV Contrast [place] Oil-Black Currant-Vit E 07/10/2010 Verapamil 03/21/2004 Bupropion [...] Respimat 1.25 MCG/ACT Inhalation Aerosol Solution (Tiotropium [place] Monohydrate) Inhale 2 Puffs by mouth in [...] Hypoxemia 10/08/2011 10/30/2015 Genetic Sleep Disorder Research Other*[id number] 07/25/2011 05/15/2016 COPD, moderate 07/19/2011 07/28/2019 Overview: [...] mRNA, LNP-s, No Pre serve, 2-Dose Series ([employer]) 08/21/2021,12/22/2020,2020 COVID-19, LNP-s, No Preserve , Tyler-sucrose, Ages 12+ (Pfizer) 04/16/2022 Hepatitis B, 20+ yrs 10/01/2017,04/21/2017,03/20 Pneumococcal Conjugate Vacc, 13 Valent (Prevnar) 03/28/2015 Pneumococcal Conjugate Vacci ne, 20-valent ([id number]) 04/01/2022 Pneumococcal Polysaccharide PPV23 (Pneumovax) 05/21/2006 Seasonal [...] Progress Notes * Joanna Smith RN - 01/22/2023 9:39 AM EDT Laborer Airport Maintenance Progress Note: Date: 01/22/23 Assigned Patient Tier: 2 Call for HERMAN week 4 follow up/goal review Pt identified by name and Assessment: Did you receive an alert for an annual wellness visit? No Case Management Assessment Is this call for a hospital, skilled nursing or rehab facility discharge to home? No Medication Reconciliation: Medication Reconciliation completed: no Review of Current goals: Connected with patient via telephone. Verified patient name/. Pt. Noted the following: Pt is meeting with home health nursing later today and states she feels this will be her last visit. She willcontinue with PT and OT. Pt reports she is feeling stronger and more steady on her feet. She uses her walker for ambulation. Discussed the following patient-centered CM goals with the patient during this discussion: -Prevention: Prevent admission/readmission -Status: On Track -SAFETY: Prevent falls or injuries -Status: On Track working with home health. -TREATMENT: Heal and maintain skin integrity -Status: On Track daughter is performing wound care-last home health nursing visit today. CM Plan: Reviewed 3 Red Flags with patient. Advised to call CM with any of the following: Red Flag 1: Weakness or Dizziness Red Flag 2: Shortness of breath Red Flag 3: Fevers or chills Call CM/PCP for any chest pain, shortness of breath, nausea, vomiting, diarrhea, fever, chills or changes in your health status Plan for Future Contacts: Plan to follow up within 1 month to check progress on the following goals/needs: abdominal wound. Advancement/Closure Plan: Graduate patient to the next lower tier. Tier: 3 Patient provided CM contact information and encouraged to call with any changes in condition. SNP Member? No PCP Notified of enrollment in CM/HM program: Yes Is Provider in agreement with POC? Yes Joanna Smith, RN Outpatient Case Management documented in this encounter Plan of Treatment Upcoming Encounters Date Type Specialty Care Team Description 03/27/2023 Office Visit [facility] [address] 04/02/2023 Office Visit Orthopedics Eliezer Gifford, DO [address] [place] [address] 09/18/2023 Office Visit Cardiology Hammad Lopez, DO [address] [place] [address] Health Maintenance Due Date Last Done Comments [...] Additional history exists CKD PHOS USE SMARTSET 54329 08/05/202307/14, 02/19/2022, 03/09/2021, Additional history exists DIABETES-FOOT EXAM 10/10/2023 10/10/2022, 0 11/19/2021, 12/21/2020, Additional history exists Depression Screening, Annual for Pts 12 and Over 10/10/2023 10/10/2022 O2 ASSESSMENT COMPLETED IN PAST YEAR FOR COPD 11/24/2023 11/24/2022 CKD HGB USE SMARTSET 35997 01/22/202401/21, 01/21/2023, 12/24/2022, Additional history exists DXA [...] Other specified examination documented in this encounter Additional Health Concerns Infection Onset Date Last Indicated Resolved Time ESBL Comment:[facility] 11/1911/19/2022 11/25/2022 documented as of this encounter [...] Advance Directives occurred with: Patient Care Teams Pallet Stone Inserter Relationship Specialty Start Date End Date Marcela Pinto MD [address] [place] [address], [place] [address] PCP - General Internal Medicine 08/04/14 documented as of this encounter
--- OUTSIDE RECORDS SUMMARY | 2023-06-18 02:18 | External Medical Summary ---
Author Name Unknown Address Unknown Organization : Laboratory Report Ordering Provider Test Date Status JOSE A JOHNSON 01/21/2023 11:04:34 Final Observation Date Value Abnormality Reference (Units ) Status Alpha-1 antitrypsin 01/21/2023 11:04:34 196 83-199 (mg/dL) Final Performing Location
--- OUTSIDE RECORDS SUMMARY | 2023-06-18 02:18 | External Medical Summary ---
Author Name Unknown Address Unknown Organization K01:[facility] - [address] [place] [address] Laboratory Report Ordering Provider Test Date Status KUSHERON 01/21/2023 11:04:34 Final Observation Date Value Abnormality Reference (Units ) Status Ferritin 01/21/2023 11:04:34 126 13-150 (ng /mL) Final [facility]forming [facility] [address] [facility] [address]
--- OUTSIDE RECORDS SUMMARY | 2023-06-18 02:18 | External Medical Summary ---
Author Name Unknown Address Unknown Organization K01:LABORATORY [facility] - [address] [place] [address] Laboratory Report Ordering Provider Test Date Status RUTH ANN JOHNSONEL 01/21/2023 11:04:34 Final Observation Date Value Abnormality Reference (Units ) Status Vitamin B12 01/21/2023 11:04:34 134 245-5966 (pg/mL) Final Performing Location [facility] - [address] [place] [address]
--- OUTSIDE RECORDS SUMMARY | 2023-06-18 02:19 | External Medical Summary | Summary of Care ---
Author Name Unknown Organization [facility] Address [address] [place] [address] Phone [phone] Care Team Providers Care Perishable Fruit Inspector Name Role Phone Marcela Pinto MD Primary Care Provider + Encounter Details Date Type Department Care Team Description 01/14/2023 Veterinary Pharmacologist Ancillary 1st Floor, [place] [address] [place] [address] Leigh Coffman LPN [address] [facility] [place] [address] Medical home patient* Allergies Active Allergy Reactions Severity Noted Date Comments Valsartan 07/10/2010 Enalapril 05/21/2006 Escitalopram Oxalate Nausea/vomiting 10/11/2009 Nauseated Iodinated Contrast Media Nausea/vomiting 2009 IV Contrast Iodine Hives 12/18/2009 IV Contrast [place] Oil-Black Currant-Vit E 07/10/2010 Verapamil 03/21/2004 Bupropion Hcl 10/30/2009 Makes pt sick in the stomach documented as of this encounter (statuses as of 01/14/2023) Medications Medication Sig Dispensed Refills Start Date [...] Respimat 1.25 MCG/ACT Inhalation Aerosol Solution (Tiotropium [place] Monohydrate) Inhale 2 Puffs by mouth in [...] as of this encounter (statuses as of 01/14/2023) Active Problems Problem Noted Date Full code [...] as of this encounter (statuses as of 01/14/2023) Resolved Problems Problem Noted Date Resolved Date [...] Hypoxemia 10/08/2011 10/30/2015 Genetic Sleep Disorder Research Other*[id number] 07/25/2011 05/15/2016 COPD, moderate 07/19/2011 07/28/2019 Overview: [...] as of this encounter (statuses as of 01/14/2023) Immunizations Name Administration Dates Next Due COVID-19 mRNA, LNP-s, No Pre serve, 2-Dose Series (Test[employer]tv) 08/21/2021,12/22/2020,2020 COVID-19, LNP-s, No Preserve , Tyler-sucrose, Ages 12+ (Pfizer) 04/16/2022 Hepatitis B, 20+ yrs 10/01/2017,04/21/2017,03/20 Pneumococcal Conjugate Vacc, 13 Valent (Prevnar) 03/28/2015 Pneumococcal Conjugate Vacci ne, 20-valent ([id number]) 04/01/2022 Pneumococcal Polysaccharide PPV23 (Pneumovax) 05/21/2006 Seasonal [...] as of this encounter Progress Notes * Leigh Coffman, NICOL - 01/14/2023 2:05 PM EDT SITUATION: Tier 2 follow up for case management; Primary CM Joanna Smith RN BACKGROUND: [facility] [place] [place] admission from 11/23/22 - 11/29/22 for wound 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 She states her mother's power went out last night but is now on but [email or web address] working on restoring her phone service She does have generator that they run with any power outage as she is on supplemental oxygen 05/05 Daughter reports that she is "doing real good' Home OT/PT discharged her but nursing is still coming Her abdominal wound os healed nicely and no longer open. No longer requiring to wear dressing No s/s infection per daughter. Dain removed Afebrile Appetite good, denies N/V. Daughter lives nearby and takes her supper to her Denies bowel or bladder concerns. Using Colace daily for regular bowel movements Denies any urinary concerns or UTI s/s Daughter denies any reports of chest pain or heaviness No lower leg edema, this has resolved since her SNF stay Daughter denies falls. Using w/c and walker SAJAN had home visit 12/30 and mentions referral to [employer] for medic alert button. Daughter does not think that they have heard anything back yet about this Recently received BSC and family installed grab bars in shower/bathroom Continue to wear her supplement oxygen at 2 lpm daily and 4 lpm HS. Daughter reports baseline exertional dyspnea which is usual Pulse ox running 98-99% PCP appt 03/27/23 RECOMMENDATION: Update from daughter No new issues or concerns I will reach out to Viky MOELLER about referral for Life Alert button. Discussed with daughter to continue to monitor her previous wound for ongoing healing- report any s/s infection or opening Recommended that daughter encourage patient to perform home PT exercises that she was given to maintain her strength Continue to check pulse ox with saturation goal or > 90 % CM follow up planned for 1-2 weeks with PDIVR to continue in interim Leigh Coffman LPN Ancillary [address] [place] [address], [address] [place] [address] documented in this encounter Plan of Treatment Upcoming Encounters Date Type Specialty Care Team Description 03/27/2023 Office Visit Internal Medicine Marcela Pinto MD [address] [place] [address] 04/02/2023 Office Visit Orthopedics Eliezer Gifford, DO [address] [place] [address] 09/18/2023 Office Visit Cardiology Hmamad Lopez DO [address] [place] [address] Health Maintenance Due Date Last Done Comments [...] Additional history exists CKD PHOS USE SMARTSET 83965 08/05/202307/14, 02/19/2022, 03/09/2021, Additional history exists DIABETES-FOOT EXAM 10/10/2023 10/10/2022, 0 11/19/2021, 12/21/2020, Additional history exists Depression Screening, Annual for Pts 12 and Over 10/10/2023 10/10/2022 O2 ASSESSMENT COMPLETED IN PAST YEAR FOR COPD 11/24/2023 11/24/2022 CKD HGB USE SMARTSET 06009 12/25/202312/24, 12/24/2022, 12/18/2022, Additional history exists DXA [...] this encounter Visit Diagnoses Diagnosis Medical home patient- Primary Encounters for other specified administrative purpose documented in this encounter Additional Health Concerns [...] Advance Directives occurred with: Patient Care Teams Perishable Fruit Inspector Relationship Specialty Start Date End Date Marcela Pinto MD [address] [facility] [place] [address] PCP - General Internal Medicine 08/04/14 documented as of this encounter
--- OUTSIDE RECORDS SUMMARY | 2023-06-18 02:19 | External Medical Summary | Summary of Care ---
Author Name Unknown Organization [facility] Address [address] [place] [address] Phone [phone] Care Team Providers Care Linux Security Administrator Name Role Phone Marcela Pinto MD Primary Care Provider + Encounter Details Date Type Department Care Team Description 01/08/2023 Primary TherapistFeed Adviser [facility] [address] [place] [address] Joanna Smith, BIJAL Medical home patient encounter* Allergies Active Allergy Reactions Severity Noted Date Comments Valsartan 07/10/2010 Enalapril 05/21/2006 Escitalopram Oxalate Nausea/vomiting 10/11/2009 Nauseated Iodinated Contrast Media Nausea/vomiting 2009 IV Contrast Iodine Hives 12/18/2009 IV Contrast [place] Oil-Black Currant-Vit E 07/10/2010 Verapamil 03/21/2004 Bupropion Hcl 10/30/2009 Makes pt sick in the stomach documented as of this encounter (statuses as of 01/08/2023) Medications Medication Sig Dispensed Refills Start Date [...] Respimat 1.25 MCG/ACT Inhalation Aerosol Solution (Tiotropium [place] Monohydrate) Inhale 2 Puffs by mouth in [...] WITH BREAKFAST 90 Tablet 1 12/31/2022 Active HYDROcodone-Acetami nophen 5-325 MG Oral TabletIndications:G eneralized osteoarthritis Take 1 Tablet by mouth every 6 hours as needed for Pain, Mild. 120 Tablet 0 12/31/2022 Active Metoprolol Succinate ER 25 MG Oral Tablet Extended Release 24 Hour (Toprol XL) Take one tablet in AM and 1/2 table in the evening. 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 07/25/2011 05/15/2016 COPD, moderate 07/19/2011 07/28/2019 Overview: [...] as of this encounter (statuses as of 01/08/2023) Immunizations Name Administration Dates Next Due COVID-19 mRNA, LNP-s, No Pre serve, 2-Dose Series (SOL ELIXIRS) 08/21/2021,12/22/2020,2020 COVID-19, LNP-s, No Preserve , Tyler-sucrose, Ages 12+ (Pfizer) 04/16/2022 Hepatitis B, 20+ yrs 10/01/2017,04/21/2017,03/20 Pneumococcal Conjugate Vacc, 13 Valent (Prevnar) 03/28/2015 Pneumococcal Conjugate Vacci ne, 20-valent ([id number]) 04/01/2022 Pneumococcal Polysaccharide PPV23 (Pneumovax) 05/21/2006 Seasonal [...] Progress Notes * Joanna Smith RN - 01/08/2023 11:41 AM EDT Case management HERMAN week 2: CM placed follow up call to pt for HERMAN week 2. Pt reports she is doing well. She was seen by her eye doctor yesterday and was started on drops for itchy eyes, which she reports have been very helpful. Pt was seen by home health nurse today and PT will be out later this week. Pt denies any further needs at this time. documented in this encounter Plan of Treatment Upcoming Encounters Date Type Specialty Care Team Description 03/27/2023 Office Visit Internal Medicine Marcela Pinto MD [address] [place], [place] [address] [address] 04/02/2023 Office Visit Orthopedics Eliezer Gifford, [address] [place] [address] 09/18/2023 Office Visit Cardiology Hammad Lopez, [address] [place] [address] Health Maintenance Due Date Last Done Comments [...] Additional history exists CKD PHOS USE SMARTSET 61176 08/05/202307/14, 02/19/2022, 03/09/2021, Additional history exists DIABETES-FOOT EXAM 10/10/2023 10/10/2022, 0 11/19/2021, 12/21/2020, Additional history exists Depression Screening, Annual for Pts 12 and Over 10/10/2023 10/10/2022 O2 ASSESSMENT COMPLETED IN PAST YEAR FOR COPD 11/24/2023 11/24/2022 CKD HGB USE SMARTSET 43853 12/25/202312/24, 12/24/2022, 12/18/2022, Additional history exists DXA [...] Onset Date Last Indicated Resolved Time ESBL Comment:[facility] 11/1911/19/2022 11/25/2022 documented as of this encounter [...] Advance Directives occurred with: Patient Care Teams Linux Security Administrator Relationship Specialty Start Date End Date Marcela Pinto MD [address] [place] [address] [place] [address] PCP - General Internal Medicine 08/04/14 documented as of this encounter
--- OUTSIDE RECORDS SUMMARY | 2023-06-18 02:19 | External Medical Summary | Summary of Care ---
Author Name Unknown Organization [facility] Address [address] [place] [address] Phone [phone] Care Team Providers Care Trouble Shooting Mechanic Name Role Phone Marcela Pinto MD Primary Care Provider + Reason for Visit * Reason Onset Date Comments Medication Problem 01/08/2023 Encounter Details Date Type Department Care Team Description 01/08/2023 Telephone General Internal Medicine [facility] [address] [facility] [place] [address] Marcela Pinto MD 200 [place] [address] Medication Problem Allergies Active Allergy Reactions Severity Noted Date Comments Valsartan 07/10/2010 Enalapril 05/21/2006 Escitalopram Oxalate Nausea/vomiting 10/11/2009 Nauseated Iodinated Contrast Media Nausea/vomiting 2009 IV Contrast Iodine Hives 12/18/2009 IV Contrast [place] Oil-Black Currant-Vit E 07/10/2010 Verapamil 03/21/2004 Bupropion [...] Respimat 1.25 MCG/ACT Inhalation Aerosol Solution (Tiotropium [place] Monohydrate) Inhale 2 Puffs by mouth in [...] Hypoxemia 10/08/2011 10/30/2015 Genetic Sleep Disorder Research Other*[id number] 07/25/2011 05/15/2016 COPD, moderate 07/19/2011 07/28/2019 Overview: [...] mRNA, LNP-s, No Pre serve, 2-Dose Series ([employer]) 08/21/2021,12/22/2020,2020 COVID-19, LNP-s, No Preserve , Tyler-sucrose, Ages 12+ (Pfizer) 04/16/2022 Hepatitis B, 20+ yrs 10/01/2017,04/21/2017,03/20 Pneumococcal Conjugate Vacc, 13 Valent (Prevnar) 03/28/2015 Pneumococcal Conjugate Vacci ne, 20-valent ([id number]) 04/01/2022 Pneumococcal Polysaccharide PPV23 (Pneumovax) 05/21/2006 Seasonal [...] Telephone Encounter - Marcela Pinto MD - 01/08/2023 3:02 PM EDT We need to check with the patient if she is okay trying Tramadol instead. If not, its okay to switch th epharmacy if hydrocodone works better for her and as she is on it for long time. * Telephone Encounter - Bobbi Fitch LPN - 01/08/2023 1:33 PM EDT [facility] [place] requesting alternate medication to Hydrocodone, med is on back order. Please advise. documented in this encounter Plan of Treatment Upcoming Encounters Date Type Specialty Care Team Description 03/27/2023 Office Visit Internal Medicine Marcela Pinto MD [address] [place] [address] 04/02/2023 Office Visit Orthopedics Eliezer Gifford, DO [address] [place] [address] 09/18/2023 Office Visit Cardiology Hammad Lopez, DO [address] [place] [address] Health Maintenance Due Date Last Done Comments [...] Additional history exists CKD PHOS USE SMARTSET 76991 08/05/202307/14, 02/19/2022, 03/09/2021, Additional history exists DIABETES-FOOT EXAM 10/10/2023 10/10/2022, 0 11/19/2021, 12/21/2020, Additional history exists Depression Screening, Annual for Pts 12 and Over 10/10/2023 10/10/2022 O2 ASSESSMENT COMPLETED IN PAST YEAR FOR COPD 11/24/2023 11/24/2022 CKD HGB USE SMARTSET 80009 12/25/202312/24, 12/24/2022, 12/18/2022, Additional history exists DXA [...] Onset Date Last Indicated Resolved Time ESBL Comment:[facility] 11/1911/19/2022 11/25/2022 documented as of this encounter [...] Advance Directives occurred with: Patient Care Teams Trouble Shooting Mechanic Relationship Specialty Start Date End Date Marcela Pinto MD [address] [facility] [place], [place] [address] PCP - General Internal Medicine 08/04/14 documented as of this encounter
--- OUTSIDE RECORDS SUMMARY | 2023-06-18 02:19 | External Medical Summary | Summary of Care ---
Author Name Unknown Organization [facility] Address [address] [place] [address] Phone [phone] Care Team Providers Care Real Estate Financial Analyst Name Role Phone Marcela Pinto MD Primary Care Provider + Reason for Visit * Reason Onset Date Comments Fax 01/02/2023 Encounter Details Date Type Department Care Team Description 01/02/2023 Telephone General Internal Medicine [facility] [address] [place] [address] Marcela Pinto MD 200 [place] [address] Fax Allergies Active Allergy Reactions Severity Noted Date Comments Valsartan 07/10/2010 Enalapril 05/21/2006 Escitalopram Oxalate Nausea/vomiting 10/11/2009 Nauseated Iodinated Contrast Media Nausea/vomiting 2009 IV Contrast Iodine Hives 12/18/2009 IV Contrast [place] Oil-Black Currant-Vit E 07/10/2010 Verapamil 03/21/2004 Bupropion Hcl 10/30/2009 Makes pt sick in the stomach documented as of this encounter (statuses as of 01/07/2023) Medications Medication Sig Dispensed Refills Start Date [...] Respimat 1.25 MCG/ACT Inhalation Aerosol Solution (Tiotropium [place] Monohydrate) Inhale 2 Puffs by mouth in [...] Pain, Mild. 120 Tablet 0 12/31/2022 Active documented as of this encounter (statuses as of 01/07/2023) Active Problems Problem Noted Date Full code [...] as of this encounter (statuses as of 01/07/2023) Resolved Problems Problem Noted Date Resolved Date [...] Hypoxemia 10/08/2011 10/30/2015 Genetic Sleep Disorder Research Other*[id number] 07/25/2011 05/15/2016 COPD, moderate 07/19/2011 07/28/2019 Overview: [...] as of this encounter (statuses as of 01/07/2023) Immunizations Name Administration Dates Next Due COVID-19 mRNA, LNP-s, No Pre serve, 2-Dose Series (Grou[employer]) 08/21/2021,12/22/2020,2020 COVID-19, LNP-s, No Preserve , Tyler-sucrose, Ages 12+ (Pfizer) 04/16/2022 Hepatitis B, 20+ yrs 10/01/2017,04/21/2017,03/20 Pneumococcal Conjugate Vacc, 13 Valent (Prevnar) 03/28/2015 Pneumococcal Conjugate Vacci ne, 20-valent ([id number]) 04/01/2022 Pneumococcal Polysaccharide PPV23 (Pneumovax) 05/21/2006 Seasonal [...] encounter Miscellaneous Notes * Telephone Encounter - Teresita Raymundo LPN - 01/07/2023 11:31 AM EDT faxed * Telephone Encounter - JORDAN Goodman - 01/02/2023 3:34 PM EDT Caller requesting the following information to be faxed: Name/Company of caller: [employer] Information requested to be faxed: Last office note Fax number: [phone] Attention to Name/Company: [employer] Any additional information?: documented in this encounter Plan of Treatment Upcoming Encounters Date Type Specialty Care Team Description 03/27/2023 Office Visit Internal Medicine Marcela Pinto MD 200 [facility], [place] [address] 04/02/2023 Office Visit Orthopedics Eliezer Gifford, DO [address] [place] [address] 09/18/2023 Office Visit Cardiology Hammad Lopez, DO [address] [place] [address] Health Maintenance Due Date Last Done Comments [...] Additional history exists CKD PHOS USE SMARTSET 76690 08/05/202307/14, 02/19/2022, 03/09/2021, Additional history exists DIABETES-FOOT EXAM 10/10/2023 10/10/2022, 0 11/19/2021, 12/21/2020, Additional history exists Depression Screening, Annual for Pts 12 and Over 10/10/2023 10/10/2022 O2 ASSESSMENT COMPLETED IN PAST YEAR FOR COPD 11/24/2023 11/24/2022 CKD HGB USE SMARTSET 60427 12/25/202312/24, 12/24/2022, 12/18/2022, Additional history exists DXA [...] Onset Date Last Indicated Resolved Time ESBL Comment:[facility] 211/19/2022 11/25/2022 documented as of this encounter Advance [...] Advance Directives occurred with: Patient Care Teams Real Estate Financial Analyst Relationship Specialty Start Date End Date Marcela Pinto MD [address] [place] [address] PCP - General Internal Medicine 08/04/14 documented as of this encounter
--- OUTSIDE RECORDS SUMMARY | 2023-06-18 02:19 | External Medical Summary | Summary of Care ---
Author Name Unknown Organization [facility] Address [address] [place] [address] Phone [phone] Care Team Providers Care Salesperson Shoes Name Role Phone Marcela Pinto MD Primary Care Provider + Reason for Visit * Reason Onset Date Comments Test Results 01/01/2023 Encounter Details Date Type Department Care Team Description 01/01/2023 Telephone General Internal Medicine [facility] [address] [facility] [place] [address] Marcela Pinto MD 200 [place] [address] Test Results Allergies Active Allergy Reactions Severity Noted Date Comments Valsartan 07/10/2010 Enalapril 05/21/2006 Escitalopram Oxalate Nausea/vomiting 10/11/2009 Nauseated Iodinated Contrast Media Nausea/vomiting 2009 IV Contrast Iodine Hives 12/18/2009 IV Contrast [place] Oil-Black Currant-Vit E 07/10/2010 Verapamil 03/21/2004 Bupropion Hcl 10/30/2009 Makes pt sick in the stomach documented as of this encounter (statuses as of 01/06/2023) Medications Medication Sig Dispensed Refills Start Date [...] Respimat 1.25 MCG/ACT Inhalation Aerosol Solution (Tiotropium [place] Monohydrate) Inhale 2 Puffs by mouth in [...] as of this encounter (statuses as of 01/06/2023) Active Problems Problem Noted Date Full code [...] as of this encounter (statuses as of 01/06/2023) Resolved Problems Problem Noted Date Resolved Date [...] Hypoxemia 10/08/2011 10/30/2015 Genetic Sleep Disorder Research Other*[id number] 07/25/2011 05/15/2016 COPD, moderate 07/19/2011 07/28/2019 Overview: [...] as of this encounter (statuses as of 01/06/2023) Immunizations Name Administration Dates Next Due COVID-19 mRNA, LNP-s, No Pre serve, 2-Dose Series ([employer]s) 08/21/2021,12/22/2020,2020 COVID-19, LNP-s, No Preserve , Tyler-sucrose, Ages 12+ (Pfizer) 04/16/2022 Hepatitis B, 20+ yrs 10/01/2017,04/21/2017,03/20 Pneumococcal Conjugate Vacc, 13 Valent (Prevnar) 03/28/2015 Pneumococcal Conjugate Vacci ne, 20-valent ([id number]) 04/01/2022 Pneumococcal Polysaccharide PPV23 (Pneumovax) 05/21/2006 Seasonal [...] Telephone Encounter - Marcela Pinto MD - 01/06/2023 12:43 AM EDT Noted. Repeat cbcd, iron screen, ferritin, B12 in 2 weeks. Order is in. No need to fast. If still abnormal, she needs to reschedule visit with Hematology as she was referred in the past but she didn't or couldn't keep the visit. Please inform. * Telephone Encounter - Trinidad Dempsey LPN - 01/02/2023 12:04 PM EDT Patient aware and verbalized understanding. States that she feels ok. Denies fever. Denies skin issues, acute issues with breathing, or any issues with moving bowel or bladder. Did take prednisone a couple weeks ago while at [facility]. Please advise. * Telephone Encounter - Donovan Lutz CMA - 01/01/2023 10:49 AM EDT Called, left message for patient to return call. * Telephone Encounter - Donovan Lutz CMA - 01/01/2023 10:45 AM EDT ----- Message from Marcela Pinto MD sent at 01/01/2023 8:08 AM EDT ----- All labs fine except white blood cell count is high with high differential count. Please find out how patient is doing clinically. Any fever, any sign of infection? Did she take any steroids recently? 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 documented in this encounter Plan of Treatment Upcoming Encounters Date Type Specialty Care Team Description 03/27/2023 Office Visit Internal Medicine Marcela Pinto MD 200 [facility] [place] [address] 04/02/2023 Office Visit Orthopedics Eliezer Gifford, DO [address] [place] [address] 09/18/2023 Office Visit Cardiology Hammad Lopez, DO [address] [place] [address] Scheduled Orders Name Type Priority Associated Diagnoses Orde r Schedule CBC WITH WBC DIFFERENTIAL Lab Routine Iron deficiency anemia, unspecified iron deficiency anemia type Expected: 01/06/2023 (Approximate), Expires: 01/07/2024 IRON SCREEN, INCLUDING TIBC Lab Routine Iron deficiency anemia, unspecified iron deficiency anemia type Expected: 01/06/2023 (Approximate), Expires: 01/06/2024 FERRITIN Lab Routine Iron deficiency anemia, unspecified iron deficiency anemia type Expected: 01/06/2023 (Approximate), Expires: 01/06/2024 VITAMIN B12 Lab Routine B12 deficiency Expected: 01/06/2023 (Approximate), Expires: 01/06/2024 FOLIC ACID Lab Routine B12 deficiency Expected: 01/06/2023 (Approximate), Expires: 01/06/2024 Health Maintenance Due Date Last Done Comments [...] Additional history exists CKD PHOS USE SMARTSET 31015 08/05/202307/14, 02/19/2022, 03/09/2021, Additional history exists DIABETES-FOOT EXAM 10/10/2023 10/10/2022, 0 11/19/2021, 12/21/2020, Additional history exists Depression Screening, Annual for Pts 12 and Over 10/10/2023 10/10/2022 O2 ASSESSMENT COMPLETED IN PAST YEAR FOR COPD 11/24/2023 11/24/2022 CKD HGB USE SMARTSET 24904 12/25/202312/24, 12/24/2022, 12/18/2022, Additional history exists DXA [...] as of this encounter Visit Diagnoses Diagnosis B12 deficiency- Primary Other B-complex deficiencies Iron deficiency anemia, unspecified iron deficiency anemia type documented in this encounter Additional Health Concerns Infection Onset Date Last Indicated Resolved Time ESBL Comment:[facility] 11/1911/19/2022 11/25/2022 documented as of this encounter [...] Advance Directives occurred with: Patient Care Teams Salesperson Shoes Relationship Specialty Start Date End Date Marcela Pinto MD [address] [place] [address] PCP - General Internal Medicine 08/04/14 documented as of this encounter
--- OUTSIDE RECORDS SUMMARY | 2023-06-18 02:19 | External Medical Summary | Summary of Care ---
Author Name Unknown Organization [facility] Address [address] [place] [address] Phone [phone] Care Team Providers Care Engagement Executive Name Role Phone Marcela Pinto MD Primary Care Provider + Reason for Visit * Reason Onset Date Comments Test Results 01/01/2023 Encounter Details Date Type Department Care Team Description 01/01/2023 Telephone General Internal Medicine [facility] 200 [facility] [place] [address] Marcela Pinto MD 200 [place] [address] Test Results Allergies Active Allergy Reactions Severity Noted Date Comments Valsartan 07/10/2010 Enalapril 05/21/2006 Escitalopram Oxalate Nausea/vomiting 10/11/2009 Nauseated Iodinated Contrast Media Nausea/vomiting 2009 IV Contrast Iodine Hives 12/18/2009 IV Contrast [place] Oil-Black Currant-Vit E 07/10/2010 Verapamil 03/21/2004 Bupropion [...] Respimat 1.25 MCG/ACT Inhalation Aerosol Solution (Tiotropium [place] Monohydrate) Inhale 2 Puffs by mouth in [...] Hypoxemia 10/08/2011 10/30/2015 Genetic Sleep Disorder Research Other*[id number] 07/25/2011 05/15/2016 COPD, moderate 07/19/2011 07/28/2019 Overview: [...] mRNA, LNP-s, No Pre serve, 2-Dose Series ([employer]) 08/21/2021,12/22/2020,2020 COVID-19, LNP-s, No Preserve , Tyler-sucrose, Ages 12+ (Pfizer) 04/16/2022 Hepatitis B, 20+ yrs 10/01/2017,04/21/2017,03/20 Pneumococcal Conjugate Vacc, 13 Valent (Prevnar) 03/28/2015 Pneumococcal Conjugate Vacci ne, 20-valent ([id number]) 04/01/2022 Pneumococcal Polysaccharide PPV23 (Pneumovax) 05/21/2006 Seasonal [...] Telephone Encounter - Donovan Lutz CMA - 01/06/2023 10:21 AM EDT Patient's daughter is aware and verbalized understanding * Telephone Encounter - Marcela Pinto MD [...] prednisone a couple weeks ago while at [facility]. Please advise. 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 documented in this encounter Plan of Treatment Upcoming Encounters Date Type Specialty Care Team Description 03/27/2023 Office Visit Internal Medicine Marcela Pinto MD [address] [place] [address], [place] [address] 04/02/2023 Office Visit Orthopedics Eliezer Gifford, DO [address] [place] [address] 09/18/2023 Office Visit Cardiology Hammad Lopez, DO [address] [place] [address] Scheduled Orders Name Type Priority Associated Diagnoses [...] Additional history exists CKD PHOS USE SMARTSET 67730 08/05/202307/14, 02/19/2022, 03/09/2021, Additional history exists DIABETES-FOOT EXAM 10/10/2023 10/10/2022, 0 11/19/2021, 12/21/2020, Additional history exists Depression Screening, Annual for Pts 12 and Over 10/10/2023 10/10/2022 O2 ASSESSMENT COMPLETED IN PAST YEAR FOR COPD 11/24/2023 11/24/2022 CKD HGB USE SMARTSET 31828 12/25/202312/24, 12/24/2022, 12/18/2022, Additional history exists DXA [...] Onset Date Last Indicated Resolved Time ESBL Comment:[facility] 11/1911/19/2022 11/25/2022 documented as of [...] Advance Directives occurred with: Patient Care Teams Engagement Executive Relationship Specialty Start Date End Date Marcela Pinto MD [address] [place] [address] [place] [address] PCP - General Internal Medicine 08/04/14 documented as of this encounter
--- OUTSIDE RECORDS SUMMARY | 2023-06-18 02:19 | External Medical Summary | Summary of Care ---
Author Name Unknown Organization [facility] Address [address] [place] [address] Phone [phone] Care Team Providers Care Weight Recorder Name Role Phone Marcela Pinto MD Primary Care Provider + Reason for Visit * Reason Comments Hospital Follow-Up Discharged from [facility] Encounter Details Date Type Department Care Team Description 12/24/2022 Office Visit General Internal Medicine [address] [address] [place] [address] Marcela Pinto MD [address] [place] [address] History of colon resection*; Hyperlipidemia with target LDL less than 100; Sleep apnea, obstructive; COPD, group B, 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 ([facility]); Type 2 diabetes mellitus with hemoglobin A1c goal of less than 7.5% ([facility]); Controlled substance agreement signed; Mild persistent asthma without complication; Nocturnal hypoxia; HTN, goal below 140/90; Paroxysmal atrial fibrillation ([facility]); Chronic kidney disease, stage 3a ([facility]); Anemia, unspecified type; GENERAL OSTEOARTHROSIS ; Chronic bilateral low back pain without sciatica; Wound dehiscence Allergies Active Allergy Reactions Severity Noted Date Comments Valsartan 07/10/2010 Enalapril 05/21/2006 Escitalopram Oxalate Nausea/vomiting 10/11/2009 Nauseated Iodinated Contrast Media Nausea/vomiting 2009 IV Contrast Iodine Hives 12/18/2009 IV Contrast [place] Oil-Black Currant-Vit E 07/10/2010 Verapamil 03/21/2004 Bupropion [...] HOURS NEEDED FOR NAUSEA 60 Tablet 2 10/18/19 23 Active Alum & Mag Hydroxide-Simeth 400-400-40 MG/5ML Oral Suspension (Mi-Acid II) Take 30 mL by mouth every 4 hours as needed for Indigestion. 355 mL 0 11/11/19 23 Active Acetaminophen 500 MG Oral Tablet (Tylenol) 2 caps every 8 hours for 3 days, then 1 cap every 4 hours as needed for pain. Do not exceed 3000mg acetaminophen (Tylenol) every 24 hours. 1 Tablet 0 11/27/19 23 Active Brinzolamide 1 % Ophthalmic Suspension (Azopt) INSTILL 1 DROP BY OPHTHALMIC ROUTE 2 TIMES EVERY DAY INTO BOTH EYES 10 mL 4 12/12/19 23 Active Aspirin 81 MG Oral Tablet Delayed Release Take 1 Tablet by mouth in the morning. 100 Tablet 0 12/12/19 23 Active Brinzolamide 1 % Ophthalmic Suspension (Azopt) INSTILL 1 DROP BY OPHTHALMIC ROUTE 2 TIMES EVERY DAY INTO BOTH EYES 10 mL 4 12/12/19 23 Active Additional Information Patient not taking.Reported on 12/24/2022 Lumigan 0.01 % Ophthalmic Solution (Bimatoprost) INSTILL 1 DROP BY TOPICAL ROUTE EVERY BEDTIME 3 mL 4 12/12/19 23 Active Magnesium Chloride 64 MG Oral Tablet Delayed Release (Mag-64) Take 1 Tablet by mouth in the morning. 30 Tablet 1 12/12/19 23 Active One Daily Multivitamin Women Oral Tablet one pill each day 30 Tablet 0 12/12/19 23 Active Polyethylene Glycol 3350 17 GM Oral Packet (Miralax) Take 1 Packet by mouth 2 times a day as needed for Constipation. 60 Each 0 12/12/19 23 Active Spiriva Respimat 1.25 MCG/ACT Inhalation Aerosol Solution (Tiotropium Anatone Monohydrate) Inhale 2 Puffs by mouth in the morning. 4 g 0 12/12/19 23 Active Ventolin HFA 108 (90 Base) MCG/ACT Inhalation Aerosol Solution Inhale 2 Puffs by mouth in the morning and 2 Puffs before bedtime. 18 g 1 12/12/19 Active Vitamin D3 50 MCG (2000 UT) Oral Capsule Take 1 Capsule by mouth in the morning. 30 Capsule 5 12/12/19 Active Atorvastatin Calcium 40 MG Oral Tablet (Lipitor)Indicatio ns:Hyperlipidemia with target LDL less than 100 Take 1 Tablet by mouth in the morning. 90 Tablet 4 12/12/19 Active Furosemide 40 MG Oral Tablet (Lasix) Take 1 Tablet by mouth in the morning and 1 Tablet before bedtime. 180 Tablet 3 12/12/19 Active Spironolactone 25 MG Oral Tablet (Aldactone) Take 0.5 Tablets by mouth once a day on Friday, Friday, and Friday only. 45 Tablet 3 12/12/19 Active Potassium Chloride Annalisa ER 20 MEQ Oral Tablet Extended Release (Klor-Con M20)Indications:HT N, goal below 140/90 Take 1 Tablet by mouth in the morning. 90 Tablet 3 12/12/19 Active Ondansetron 8 MG Oral Tablet Disintegrating (Zofran) DISSOLVE 1 TABLET ON TONGUE EVERY 8 HOURS NEEDED FOR NAUSEA 60 Tablet 5 12/12/19 23 Active Zafirlukast 20 MG Oral Tablet (Accolate)Indicati ons:Asthma with severity to be determined Take 1 Tablet by mouth in the morning. 90 Tablet 3 12/12/19 23 Active Ventolin HFA 108 (90 Base) MCG/ACT Inhalation Aerosol Solution Inhale 2 Puffs by mouth in the morning and 2 Puffs before bedtime. 18 g 0 12/12/19 23 Active Additional Information Patient not taking.Reported on 12/24/2022 Albuterol Sulfate (2.5 MG/3ML) 0.083% Inhalation Nebulization Solution (Proventil)Indicat ions:Asthma with severity to be determined,COPD, moderate (HCC) USE ONE NEBULIZER TREATMENT TWICE A DAY DIRECTED FOR WORSENING ASTHMA. J45.909, J44.9 225 mL 1 12/12/19 Active Docusate Sodium 100 MG Oral Capsule (Colace) Take 1 Capsule by mouth in the morning. 90 Capsule 0 12/12/19 23 Active Omeprazole 20 MG Oral Capsule Delayed Release (PriLOSEC)Indicati ons:Ischemic colitis (HCC) Take 1 Capsule by mouth in the morning and 1 Capsule before bedtime. 180 Capsule 3 12/12/19 Active MEDICAL INSTRUCTIONS Use as directed. Nursing, PT/OT DX: ABDOMINAL INCISION DEHISENCE, CHF, HTN, COPD, CHRONIC RESPIRATORY FAILURE 1 Each 1 12/12/19 Active Ferrous Sulfate 325 (65 Fe) MG Oral Tablet (Feosol) Take 1 Tablet by mouth 2 times a day with morning and evening meals. 60 Tablet 1 12/17/19 Active Zoster Vac Recomb Adjuvanted 50 MCG/0.5ML Intramuscular Suspension Reconstituted (Shingrix) Inject 0.5 mL into a large muscle now and repeat dose in 60 to 180 days 1 Each 12/25/19 Active predniSONE 50 MG Oral Tablet (Deltasone)Indicat ions:Colonic diverticular abscess One tablet 13 hours, 7 hours and 1 hour prior to scheduled dye 3 Tablet 0 08/21/20 22 023 Discontinued(En d of Procedure) oxyCODONE HCl 5 MG Oral Tablet (Oxy IR) Take 1 Tablet by mouth every 4 hours as needed for Other (severe incisional pain). 30 Tablet 0 11/26/19 23 023 Discontinued(Dilip palacios preference/disc ontinuation) Metoprolol Succinate ER 25 MG Oral Tablet Extended Release 24 Hour (toPROL XL)Indications:Chr onic 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),NICM (nonischemic cardiomyopathy) (HCC),Presence of Watchman left atrial appendage closure device TAKE 1/2 TABLET BY MOUTH EVERY DAY 45 Tablet 3 12/12/19 23 023 Discontinued(Me dication/Dose Changed) methIMAzole 5 MG Oral Tablet (Tapazole) Take 1 Tablet by mouth in the morning. 90 Tablet 1 12/12/19 23 023 Discontinued Ipratropium-Albute rol 20-100 MCG/ACT Inhalation Aerosol Solution (Combivent Respimat)Indicatio ns:Asthma with severity to be determined,COPD, moderate (HCC) TAKE 1 PUFF BY MOUTH 4 TIMES A DAY 12 g 1 03/01/ 023 Discontinued Glimepiride 2 MG Oral Tablet (Amaryl) TAKE 1 TABLET BY MOUTH EVERY DAY WITH BREAKFAST 90 Tablet 1 12/12/19 23 023 Discontinued Sertraline HCl 25 MG Oral Tablet (Zoloft)Indication s:Major depressive disorder with single episode, in partial remission (HCC),HECTOR (generalized anxiety disorder) TAKE 1 TABLET BY MOUTH EVERY DAY IN THE MORNING 90 Tablet 1 12/12/19 23 023 Discontinued Dicyclomine HCl 20 MG Oral Tablet (Bentyl)Indication s:Chronic constipation Take 1 Tablet by mouth in the morning. 90 Tablet 2 12/12/19 23 023 Discontinued documented as of this encounter [...] Hypoxemia 10/08/2011 10/30/2015 Genetic Sleep Disorder Research Other*[id number] 07/25/2011 05/15/2016 COPD, moderate 07/19/2011 07/28/2019 Overview: [...] mRNA, LNP-s, No Pre serve, 2-Dose Series ([employer]) 08/21/2021,12/22/2020,2020 COVID-19, LNP-s, No Preserve , Tyler-sucrose, Ages 12+ (Pfizer) 04/16/2022 Hepatitis B, 20+ yrs 10/01/2017,04/21/2017,03/20 Pneumococcal Conjugate Vacc, 13 Valent (Prevnar) 03/28/2015 Pneumococcal Conjugate Vacci ne, 20-valent ([id number]) 04/01/2022 Pneumococcal Polysaccharide PPV23 (Pneumovax) 05/21/2006 Seasonal [...] Sign Reading Time Taken Comments Blood Pressure 96/64 12/24/2022 1:58 PM EDT Pulse 78 12/24/2022 1:58 PM EDT Temperature 37.1 C (98.8 F) 12/24/2022 1:58 PM ED T Respiratory Rate 16 12/24/2022 1:58 PM EDT Oxygen Saturation 98% 12/24/2022 1:58 PM EDT Inhaled Oxygen Concentration - - Weight 94.9 kg (209 lb 4.8 oz) 12/24/2022 1:58 P M EDT Height - - Body Mass Index 34.83 12/17/2022 10:14 AM EST documented in this encounter Functional Status Functional [...] as of this encounter Progress Notes * Marcela Pinto MD - 12/24/2022 2:09 PM EDT HPI: Nina Harrington is a 82 year old female with history of type 2 diabetes mellitus , hypertension , hyperlipidemia, COPD , nocturnal hypoxemia , sleep apnea , asthma, osteoarthritis , history of recurrent diverticulitis , diverticulosis, history of diverticular abscess, status post colectomy, follows with colorectal surgeon at [facility], s/p Hand-assist laparoscopic low anterior resection on 11/01/22 for diverticulitis and colovesical fistula. Pt developed COVID post op and due to severe coughing developed fascial dehiscence and underwent Exploratory laparotomy, abdominal fascial closure on 11/24/22who presents with: Chief Complaint Patient presents with Hospital Follow-Up Discharged from [facility] Patient is here for the recheck. Chart reviewed with the patient including current meds, last labs and HM. Pt is here for the hospital follow up. Chart reviewed from the hospital including admission note, Hand P, consult notes, labs, EKG, imaging and discharge note including discharge meds. Patient states she is feeling better since went back home. Pt was admitted to the hospital on 11/29/22 to [facility] and was discharged on 12/[facility]. . Admission Diagnosis : wound dehiscence. Pt has been followed up by caseworker and specialists. Patient is a complained by her daughter. Patient also states that recently she was seen by [facility] [employer] for right shoulder joint injection for chronic pain. As per last [place] note by Vito Paul recent visit: was originally admitted to [facility] on 11/01/22 for planned low anterior resection partial colectomy and takedown of colorectal fistula. Patient improved after the surgery and was discharged for rehab at [facility]. While at [facility], patient became ill and tested positive for COVID-19 infection on 11/15/22 and developed acute on chronic hypoxic respiratory failure and was transferred to [facility] and admitted. She was treated with IV remdesivir and dexamethasone with improvement in her oxygen levels. Patient was coughing from the COVID-19 and developed wound dehiscence at [facility] with visualization of intestines. She was then transferred back to [facility] on 11/23/22 for further management. Patient was taken back to the OR on 11/24/2022 and underwent exploratory laparotomy and fascial closure. She had no complications postoperatively. She was given Tylenol and oxycodone for pain control. She was placed on Lovenox for DVT prophylaxis, with the last dose being today. She was given guaifenesin-DM cough syrup as well. Patient's hemoglobin on discharge was 7.6 (11/29/22) and creatinine was 0.7. Hemoglobin dropped to 7.1 on 12/02/22 and patient reported worsening fatigue and shortness of breath. She was sent to [facility] for outpatient transfusion of 1 unit of PRBCs on 12/03/22. As per the review of the record patient was recently discharged home with home health aide PT, OT Patient Active Problem List Diagnosis Code Asthma [...] hemoglobin A1c goal of less than 7.5% ([facility]) E11.9 Elevated plasma metanephrines R79.89 Irritable bowel syndrome with constipation K58.1 HECTOR (generalized anxiety disorder) F41.1 COPD, group B, 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 ([facility]) J44.9 Morbid obesity with BMI of 40.0-44.9, adult ([facility]) E66.01, Z68.41 Gastro-esophageal reflux disease without esophagitis K21.9 Paroxysmal atrial fibrillation ([facility]) I48.0 Chronic systolic heart failure ([facility]) I50.22 Pulmonary HTN ([facility]) I27.20 Chronic hypoxemic respiratory failure ([facility]) J96.11 Chronic kidney disease, stage 3a ([facility]) N18.31 Subclinical hyperthyroidism E05.90 History of ESBL E. coli infection Z86.19 Type 2 diabetes mellitus with stage 3a chronic kidney disease, without long- term current use ofinsulin ([facility]) E11.22, N18.31 Gastroparesis K31.84 Ischemic colitis ([facility]) K55.9 Asthma, mild persistent J45.30 Diverticulitis of intestine with abscess K57.80 Protein-calorie malnutrition ([facility]) E46 UTI due to extended-spectrum beta lactamase (ESBL) producing Escherichia coli N39.0, B96.29, Z16.12 History of colon resection Z90.49 Wound dehiscence T81.30XA History of 2019 novel coronavirus disease (COVID-19) Z86.16 Post-op pain G89.18 Presence of Watchman left atrial appendage closure device Z95.818 Full code status Z78.9 Current Outpatient Medications Medication Sig Dispense Refill [...] as needed for Indigestion. 355 mL 0 oxyCODONE HCl 5 MG Oral Tablet (Oxy IR) Take 1 Tablet by mouth every 4 hours as needed for Other (severe incisional pain). 30 Tablet 0 Brinzolamide 1 % Ophthalmic Suspension (Azopt) INSTILL 1 DROP BY OPHTHALMIC ROUTE 2 TIMES EVERYDAY INTO BOTH EYES 10 mL 4 Aspirin 81 MG Oral Tablet Delayed Release Take 1 Tablet by mouth in the morning. 100 Tablet 0 Lumigan 0.01 % Ophthalmic Solution (Bimatoprost) INSTILL 1 DROP BY TOPICAL ROUTE EVERY BEDTIME 3 mL 4 Magnesium Chloride 64 MG Oral Tablet Delayed Release (Mag-64) Take 1 Tablet by mouth in the morning. 30 Tablet 1 One Daily Multivitamin Women Oral Tablet one pill each day 30 Tablet 0 Polyethylene Glycol 3350 17 GM Oral Packet (Miralax) Take 1 Packet by mouth 2 times a day as needed for Constipation. 60 Each 0 Spiriva Respimat 1.25 MCG/ACT Inhalation Aerosol Solution (Tiotropium Anatone Monohydrate) Inhale 2 Puffs by mouth in the morning. 4 g 0 Ventolin HFA 108 (90 Base) MCG/ACT Inhalation Aerosol Solution Inhale 2 Puffs by mouth in the morning and 2 Puffs before bedtime. 18 g 1 Vitamin D3 50 MCG (2000 UT) Oral Capsule Take 1 Capsule by mouth in the morning. 30 Capsule 5 Metoprolol Succinate ER 25 MG Oral Tablet Extended Release 24 Hour (toPROL XL) TAKE 1/2 TABLET BY MOUTH EVERY DAY 45 Tablet 3 methIMAzole 5 MG Oral Tablet (Tapazole) Take 1 Tablet by mouth in the morning. 90 Tablet 1 Atorvastatin Calcium 40 MG Oral Tablet [...] Friday, and Friday only. 45 Tablet 3 Ipratropium-Albuterol 20-100 MCG/ACT Inhalation Aerosol Solution (Combivent Respimat) TAKE 1 PUFF BY MOUTH 4 TIMES A DAY 12 g 1 Potassium Chloride Annalisa ER 20 MEQ Oral Tablet Extended Release (Klor-Con M20) Take 1 Tablet by mouth in the morning. 90 Tablet 3 Glimepiride 2 MG Oral Tablet (Amaryl) TAKE 1 TABLET BY MOUTH EVERY DAY WITH BREAKFAST 90 Tablet1 Ondansetron 8 MG Oral Tablet Disintegrating (Zofran) DISSOLVE 1 TABLET ON TONGUE EVERY 8 HOURS NEEDED FOR NAUSEA 60 Tablet 5 Sertraline HCl 25 MG Oral Tablet (Zoloft) TAKE 1 TABLET BY MOUTH EVERY DAY IN THE MORNING 90 Tablet 1 Zafirlukast 20 MG Oral Tablet (Accolate) Take 1 Tablet by mouth in the morning. 90 Tablet 3 Dicyclomine HCl 20 MG Oral Tablet (Bentyl) Take 1 Tablet by mouth in the morning. 90 Tablet 2 Albuterol Sulfate (2.5 MG/3ML) 0.083% Inhalation Nebulization [...] 1 Capsule before bedtime. 180 Capsule 3 Ferrous Sulfate 325 (65 Fe) MG Oral Tablet (Feosol) Take 1 Tablet by mouth 2 times a day with morning and evening meals. 60 Tablet 1 Zoster Vac Recomb Adjuvanted 50 MCG/0.5ML Intramuscular Suspension Reconstituted (Shingrix) Inject 0.5 mL into a large muscle now and repeat dose in 60 to 180 days 1 Each 1 predniSONE 50 MG Oral Tablet (Deltasone) One tablet 13 hours, 7 hours and 1 hour prior to scheduled dye (Patient not taking: Reported on 12/24/2022) 3 Tablet 0 Acetaminophen 500 MG Oral Tablet (Tylenol) [...] taking: Reported on 12/24/2022) 10 mL 4 Ventolin HFA 108 (90 Base) MCG/ACT Inhalation Aerosol Solution Inhale 2 Puffs by mouth in the morning and 2 Puffs before bedtime. (Patient not taking: Reported on 12/24/2022) 18 g 0 MEDICAL INSTRUCTIONS Use as directed. Nursing, PT/OT DX: ABDOMINAL INCISION DEHISENCE, CHF, HTN, COPD, CHRONIC RESPIRATORY FAILURE 1 Each 1 No current facility-administered medications for this visit. The patient's medication list was reviewed and updated as needed. Review of patient's allergies indicates: Allergen Reactions Diovan [Valsartan] Enalapril Escitalopram Oxalate Nausea/vomiting Nauseated Iodinated Contrast Media Nausea/vomiting IV Contrast Iodine Hives IV Contrast [place] Oil-Black Currant-Vit E Verapamil Wellbutrin [Bupropion Hcl] Makes pt sick in the stomach Past Medical History: Diagnosis Date ACEI/ARB contraindicated Asthma Carpal tunnel syndrome DM type 2, goal: symptom mgmt (HCC) Generalized osteoarthritis HTN, goal below 140/90 Mixed dyslipidemia 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 Socioeconomic History Marital status: Number of children: 6 Occupational History Occupation: Disability 1998 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, 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, 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 Tobacco Use Smoking status: Never Smokeless tobacco: Never Vaping Use Vaping Use: Never used Substance and Sexual Activity Alcohol use: No Drug use: No Sexual activity: Not Currently Other Topics Concern Blood Transfusions No Social Determinants of Health Food Insecurity: No Food Insecurity Worried About Running Out of Food in the Last Year: Never true Ran Out of Food in the Last Year: Never true Family History Problem Relation Age of Onset Breast Cancer Mother Heart disease Father No Known Problems Sister COPD Brother COPD Brother COPD Brother Diabetes Aunt (Unspecified) Other (JORDAN) Son not diagnosed Lung Disorder Grandfather (Paternal) ?COPD vs asthma Asthma Daughter All system negative except as per hpi. OBJECTIVE: BP 96/64 | Pulse 78 | Temp 37.1 C (98.8 F) (Tympanic) | Resp 16 | Wt 94.9 kg (209 lb 4.8 oz) | SpO2 98% | BMI 34.83 kg/m | BSA 2.09 m PHYSICAL EXAM: HEENT: PERRLA, EOMI, anicteric sclera, b/l tympanic [...] Gait normal. Mood stable No focal weakness ASSESSMENT AND PLAN: Hyperlipidemia with target LDL less than 100 Low fat diet, statin advised. Sleep apnea, obstructive Uses only oxygen 4 lit per min at night and day. COPD, group B, 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 ([facility]) Type 2 diabetes mellitus with hemoglobin A1c goal of less than 7.5% ([facility]) Diet control. Controlled substance agreement signed Mild persistent asthma without complication Nocturnal hypoxia HTN, goal below 140/90 Slightly low. Advised hydration, fall precatuions. Paroxysmal atrial fibrillation ([facility]) Rate controlled. Chronic kidney disease, stage 3a ([facility]) - COMPREHENSIVE METABOLIC PANEL; Future; Expected date: 12/24/2022 Anemia, unspecified type - CBC WITH WBC DIFFERENTIAL; Future; Expected date: 12/24/2022 GENERAL OSTEOARTHROSIS Chronic bilateral low back pain without sciatica Other orders - Zoster Vac Recomb Adjuvanted 50 MCG/0.5ML Intramuscular Suspension Reconstituted (Shingrix); Inject 0.5 mL into a large muscle now and repeat dose in 60 to 180 days Follow Up: Return in about 3 months (around 03/26/2023). Marcela Pinto MD documented in this encounter Nursing Notes * Teresita Raymundo LPN - 12/24/2022 1:52 PM EDT Chief Complaint Patient presents with Hospital Follow-Up Discharged from [facility] documented in this encounter Plan of Treatment Upcoming Encounters Date Type Specialty Care Team Description 03/27/2023 Office Visit Internal Medicine Marcela Pinto MD [address] [place] [address] 04/02/2023 Office Visit Orthopedics Eliezer Gifford, DO [address] [place] [address] 09/18/2023 Office Visit Cardiology Hammad Lopez, DO [address] [place] [address] Health Maintenance Due Date Last Done Comments [...] Additional history exists CKD PHOS USE SMARTSET 95002 08/05/202307/14, 02/19/2022, 03/09/2021, Additional history exists DIABETES-FOOT EXAM 10/10/2023 10/10/2022, 0 11/19/2021, 12/21/2020, Additional history exists Depression Screening, Annual for Pts 12 and Over 10/10/2023 10/10/2022 O2 ASSESSMENT COMPLETED IN PAST YEAR FOR COPD 11/24/2023 11/24/2022 CKD HGB USE SMARTSET 02929 12/25/202312/24, 12/24/2022, 12/18/2022, Additional history exists DXA [...] Not on filedocumented as of this encounter Results * (ABNORMAL) COMPREHENSIVE METABOLIC PANEL (12/24/2022 2:47 PM EDT) BUN 24(H) 6 - 20 mg/dL 12/24/2022 3:47 PM EDT [facility] 56-02 Creatinine 0.8 0.5 - 1.0 mg/dL 12/24/2022 3:47 PM EDT [facility] [place] 56-02 Estimated Glomerular Filtration Rate 76 >=60 mL/min 12/24/2022 3:47 PM EDT [facility] 56-02 Comment:eGFR is calculated b ased on the CKD-EPI 2020 equation Sodium 141 135 - 146 mmol/L 12/24/2022 3:47 PM EDT [facility] 56- Potassium 4.6 3.5 - 5.1 mmol/L 12/24/2022 3:47 PM EDT [facility] 56- Chloride 102 98 - 107 mmol/L 12/24/2022 3:47 PM EDT [facility] 56- CO2 30 22 - 32 mmol/L 12/24/2022 3:47 PM EDT [facility] 56 Anion Gap 9 7 - 15 mmol/L 12/24/2022 3:47 PM EDT [facility] 56 Glucose 202(H) 70 - 120 mg/dL 12/24/2022 3:47 PM EDT [facility] 56 Albumin 3.8 3.8 - 5.0 g/dL 12/24/2022 3:47 PM EDT [facility] 56 AST 14 10 - 35 U/L 12/24/2022 3:47 PM EDT [facility] 56 Alkaline Phosphatase 106 35 - 130 U/L 12/24/2022 3:47 PM EDT [facility] 56 Bilirubin, Total 0.3 <=1.2 mg/dL 12/24/2022 3:47 PM EDT [facility] 56 Calcium 9.5 8.4 - 10.2 mg/dL 12/24/2022 3:47 PM EDT [facility] 56 Protein 6.4 6.0 - 8.3 g/dL 12/24/2022 3:47 PM EDT [facility] 56 ALT 10 10 - 35 U/L 12/24/2022 3:47 PM EDT [facility] 56 Blood Venous blood specimen / Unknown Venipuncture / Unknown 12/24/2022 2:47 PM EDT 12/24/2022 2:50 PM EDT Marcela Pinto MD LAB BLOOD ORDERA BLES [facility] [address] [place] [address] documented in this encounter Visit Diagnoses Diagnosis History of colon resection- Primary Other postprocedural status Hyperlipidemia with target LDL less than 100 Other and unspecified hyperlipidemia Sleep apnea, obstructive Obstructive sleep apnea (adult) (pediatric) COPD, group B, 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 ([facility]) Type 2 diabetes mellitus with hemoglobin A1c goal of less than 7.5% ([facility]) Controlled substance agreement signed Encounter for long-term (current) use of other medications Mild persistent asthma without complication Unspecified asthma Nocturnal hypoxia Hypoxemia HTN, goal below 140/90 Unspecified essential hypertension Paroxysmal atrial fibrillation (HCC) Atrial fibrillation Chronic kidney disease, stage 3a ([facility]) Anemia, unspecified type GENERAL OSTEOARTHROSIS Generalized osteoarthrosis, unspecified site Chronic bilateral low back pain without sciatica Wound dehiscence Disruption of external operation (surgical) wound documented in this encounter Additional Health Concerns [...] Advance Directives occurred with: Patient Care Teams Weight Recorder Relationship Specialty Start Date End Date Marcela Pinto MD [address] [place] [address] [place], [place] [address] PCP - General Internal Medicine 08/04/14 documented as of this encounter"
--- OUTSIDE RECORDS SUMMARY | 2023-06-18 02:19 | External Medical Summary | Summary of Care ---
Author Name Unknown Organization [facility] Address [address] [place] [address] Phone [phone] Care Team Providers Care Family Practice Md Name Role Phone Marcela Pinto MD Primary Care Provider + Reason for Visit * Reason Onset Date Comments Medication Problem 01/08/2023 Encounter Details Date Type Department Care Team Description 01/08/2023 Telephone General Internal Medicine [facility] 200 [facility] [place] [address] Marcela Pinto MD 200 [place] [address] Medication Problem Allergies Active Allergy Reactions Severity [...] Respimat 1.25 MCG/ACT Inhalation Aerosol Solution (Tiotropium [place] Monohydrate) Inhale 2 Puffs by mouth in [...] Hypoxemia 10/08/2011 10/30/2015 Genetic Sleep Disorder Research Other*[id number] 07/25/2011 05/15/2016 COPD, moderate 07/19/2011 07/28/2019 Overview: [...] mRNA, LNP-s, No Pre serve, 2-Dose Series ([employer]) 08/21/2021,12/22/2020,2020 COVID-19, LNP-s, No Preserve , Tyler-sucrose, Ages 12+ (Pfizer) 04/16/2022 Hepatitis B, 20+ yrs 10/01/2017,04/21/2017,03/20 Pneumococcal Conjugate Vacc, 13 Valent (Prevnar) 03/28/2015 Pneumococcal Conjugate Vacci ne, 20-valent ([id number]) 04/01/2022 Pneumococcal Polysaccharide PPV23 (Pneumovax) 05/21/2006 Seasonal [...] - 01/08/2023 1:33 PM EDT [facility] [place] [facility] to [facility], med is on back order. Please advise. documented in this encounter Plan of Treatment Upcoming Encounters Date Type Specialty Care Team Description 03/27/2023 Office Visit Internal Medicine Marcela Pinto MD 200 [place] [address] 04/02/2023 Office Visit Orthopedics Eliezer Gifford, DO [address] [place] [address] 09/18/2023 Office Visit Cardiology Hammad Lopez, DO [address] [place] [address] Health Maintenance Due Date Last Done Comments [...] Additional history exists CKD PHOS USE SMARTSET 88093 08/05/202307/14, 02/19/2022, 03/09/2021, Additional history exists DIABETES-FOOT EXAM 10/10/2023 10/10/2022, 0 11/19/2021, 12/21/2020, Additional history exists Depression Screening, Annual for Pts 12 and Over 10/10/2023 10/10/2022 O2 ASSESSMENT COMPLETED IN PAST YEAR FOR COPD 11/24/2023 11/24/2022 CKD HGB USE SMARTSET 34508 12/25/202312/24, 12/24/2022, 12/18/2022, Additional history exists DXA [...] Onset Date Last Indicated Resolved Time ESBL Comment:[facility] 11/1911/19/2022 11/25/2022 documented as of this encounter [...] Advance Directives occurred with: Patient Care Teams Family Practice Md Relationship Specialty Start Date End Date Marcela Pinto MD 200 [facility] [place], [place] [address] PCP - General Internal Medicine 08/04/14 documented as of this encounter
--- OUTSIDE RECORDS SUMMARY | 2023-06-18 02:19 | External Medical Summary | Summary of Care ---
Author Name Unknown Organization [facility] Address [address] [place] [address] Phone [phone] Care Team Providers Care Second Watch Sergeant Name Role Phone Marcela Pinto MD Primary Care Provider + Reason for Visit * Reason Onset Date Comments Medication Problem 01/08/2023 Encounter Details Date Type Department Care Team Description 01/08/2023 Telephone General Internal Medicine [facility] 200 [facility] [place] [address] Marcela Pinto MD 200 [place] [address] Medication Problem Allergies Active Allergy Reactions Severity Noted Date Comments Valsartan 07/10/2010 Enalapril 05/21/2006 Escitalopram Oxalate Nausea/vomiting 10/11/2009 Nauseated Iodinated Contrast Media Nausea/vomiting 2009 IV Contrast Iodine Hives 12/18/2009 IV Contrast [place] Oil-Black Currant-Vit E 07/10/2010 Verapamil 03/21/2004 Bupropion Hcl 10/30/2009 Makes pt sick in the stomach documented as of this encounter (statuses as of 01/09/2023) Medications Medication Sig Dispensed Refills Start Date [...] Respimat 1.25 MCG/ACT Inhalation Aerosol Solution (Tiotropium [place] Monohydrate) Inhale 2 Puffs by mouth in [...] as of this encounter (statuses as of 01/09/2023) Active Problems Problem Noted Date Full code [...] as of this encounter (statuses as of 01/09/2023) Resolved Problems Problem Noted Date Resolved Date [...] Hypoxemia 10/08/2011 10/30/2015 Genetic Sleep Disorder Research Other*[id number] 07/25/2011 05/15/2016 COPD, moderate 07/19/2011 07/28/2019 Overview: [...] as of this encounter (statuses as of 01/09/2023) Immunizations Name Administration Dates Next Due COVID-19 mRNA, LNP-s, No Pre serve, 2-Dose Series ([employer]) 08/21/2021,12/22/2020,2020 COVID-19, LNP-s, No Preserve , Tyler-sucrose, Ages 12+ (Pfizer) 04/16/2022 Hepatitis B, 20+ yrs 10/01/2017,04/21/2017,03/20 Pneumococcal Conjugate Vacc, 13 Valent (Prevnar) 03/28/2015 Pneumococcal Conjugate Vacci ne, 20-valent ([id number]) 04/01/2022 Pneumococcal Polysaccharide PPV23 (Pneumovax) 05/21/2006 Seasonal [...] encounter Miscellaneous Notes * Addendum Note - Allie Dempsey LPN - 01/09/2023 3:20 PM EDTAddended by: ALLIE DEMPSEY on: 01/09/2023 03:20 PM Modules accepted: Orders * Telephone Encounter - Allie Dempsey LPN - 01/09/2023 3:18 PM EDT Patient aware and verbalized understanding. Pt prefers to stick with Hydrocodone. Asks that the script is sent to [facility] [place]. States that her daughter call [facility] and they have this medication available. Med pended. Pharmacy selected. Please advise. * Telephone Encounter - Marcela Pinto MD - 01/08/2023 3:02 PM EDT We need to check with the patient if she is okay trying Tramadol instead. If not, its okay to switch th epharmacy if hydrocodone works better for her and as she is on it for long time. * Telephone Encounter - Bobbi Fitch LPN - 01/08/2023 1:33 PM EDT [facility] [place] [facility] alternate medication to Hydrocodone, med is on back order. Please advise. documented in this encounter Plan of Treatment Upcoming Encounters Date Type Specialty Care Team Description 03/27/2023 Office Visit Internal Medicine Marcela Pinto MD 200 [place] [address] 04/02/2023 Office Visit Orthopedics Eliezer Gifford, DO [address] [place] [address] 09/18/2023 Office Visit Cardiology Hammad Lopez, DO [address] [place] [address] Health Maintenance Due Date Last Done Comments [...] Additional history exists CKD PHOS USE SMARTSET 47230 08/05/202307/14, 02/19/2022, 03/09/2021, Additional history exists DIABETES-FOOT EXAM 10/10/2023 10/10/2022, 0 11/19/2021, 12/21/2020, Additional history exists Depression Screening, Annual for Pts 12 and Over 10/10/2023 10/10/2022 O2 ASSESSMENT COMPLETED IN PAST YEAR FOR COPD 11/24/2023 11/24/2022 CKD HGB USE SMARTSET 41840 12/25/202312/24, 12/24/2022, 12/18/2022, Additional history exists DXA [...] osteoarthrosis, unspecified site documented in this encounter Additional Health Concerns Infection Onset Date Last Indicated Resolved Time ESBL Comment:[place] 211/19/2022 11/25/2022 documented as of this encounter [...] Advance Directives occurred with: Patient Care Teams Second Watch Sergeant Relationship Specialty Start Date End Date Marcela Pinto MD 200 [facility] [place], [place] [address] PCP - General Internal Medicine 08/04/14 documented as of this encounter
--- OUTSIDE RECORDS SUMMARY | 2023-06-18 02:19 | External Medical Summary | Summary of Care ---
Author Name Unknown Organization [facility] Address [address] [place] [address] Phone [phone] Care Team Providers Care Welding Machine Assembler Name Role Phone Marcela Pinto MD Primary Care Provider + Reason for Visit * Reason Onset Date Comments Medication Problem 01/08/2023 Encounter Details Date Type Department Care Team Description 01/08/2023 Telephone General Internal Medicine [facility] 200 [facility] [place] [address] Marecla Pinto MD 200 [place] [address] Medication Problem Allergies Active Allergy Reactions Severity Noted Date Comments Valsartan 07/10/2010 Enalapril 05/21/2006 Escitalopram Oxalate Nausea/vomiting 10/11/2009 Nauseated Iodinated Contrast Media Nausea/vomiting 2009 IV Contrast Iodine Hives 12/18/2009 IV Contrast [place] Oil-Black Currant-Vit E 07/10/2010 Verapamil 03/21/2004 Bupropion Hcl 10/30/2009 Makes pt sick in the stomach documented as of this encounter (statuses as of 01/10/2023) Medications Medication Sig Dispensed Refills Start Date [...] EVERY BEDTIME 3 mL 4 3 Active Magnesium Chloride 64 MG Oral Tablet Delayed Release (Mag-64) Take 1 Tablet by mouth in the morning. 30 Tablet 1 3 Active One Daily Multivitamin Women Oral Tablet one pill each day 30 Tablet 0 3 Active Polyethylene Glycol 3350 17 GM Oral Packet (Miralax) Take 1 Packet by mouth 2 times a day as needed for Constipation. 60 Each 0 3 Active Spiriva Respimat 1.25 MCG/ACT Inhalation Aerosol Solution (Tiotropium [place] Monohydrate) Inhale 2 Puffs by mouth in the morning. 4 g 0 3 Active Ventolin HFA 108 (90 Base) MCG/ACT Inhalation Aerosol Solution Inhale 2 Puffs by mouth in the morning and 2 Puffs before bedtime. 18 g 1 3 Active Vitamin D3 50 MCG (2000 UT) Oral Capsule Take 1 Capsule by mouth in the morning. 30 Capsule 5 3 Active Atorvastatin Calcium 40 MG Oral [...] for Pain, Mild. 120 Tablet 0 3 01/10/20 23 Discontinu ed(Refill) documented as of this encounter (statuses as of 01/10/2023) Active Problems Problem Noted Date Full code [...] as of this encounter (statuses as of 01/10/2023) Resolved Problems Problem Noted Date Resolved Date [...] Hypoxemia 10/08/2011 10/30/2015 Genetic Sleep Disorder Research Other*[id number] 07/25/2011 05/15/2016 COPD, moderate 07/19/2011 07/28/2019 Overview: [...] as of this encounter (statuses as of 01/10/2023) Immunizations Name Administration Dates Next Due COVID-19 mRNA, LNP-s, No Pre serve, 2-Dose Series (Pfizer) 08/21/2021,12/22/2020,2020 COVID-19, LNP-s, No Preserve , Tyler-sucrose, Ages 12+ (Pfizer) 04/16/2022 Hepatitis B, 20+ yrs 10/01/2017,04/21/2017,03/20 Pneumococcal Conjugate Vacc, 13 Valent (Prevnar) 03/28/2015 Pneumococcal Conjugate Vacci ne, 20-valent ([id number]) 04/01/2022 Pneumococcal Polysaccharide PPV23 (Pneumovax) 05/21/2006 Seasonal [...] encounter Miscellaneous Notes * Addendum Note - Marcela Pinto MD - 01/10/2023 8:03 AM EDTAddended by: MARCELA PINTO on: 01/10/2023 08:03 AM Modules accepted: Orders * Telephone Encounter - Marcela Pinto MD - 01/10/2023 8:03 AM EDT Noted. Signed the script. * Addendum Note - Allie Dempsey LPN - 01/09/2023 3:20 PM EDTAddended by: ALLIE DEMPSEY on: 01/09/2023 03:20 PM Modules accepted: Orders * Telephone Encounter - Allie Dempsey LPN - 01/09/2023 3:18 PM EDT Patient aware and verbalized understanding. Pt prefers to stick with Hydrocodone. Asks that the script is sent to [facility] [place]. States that her daughter call [facility] and they have this medication available. [...] - 01/08/2023 1:33 PM EDT [facility] [place] [facility] alternate medication to Hydrocodone, med is on back order. Please advise. documented in this encounter Plan of Treatment Upcoming Encounters Date Type Specialty Care Team Description 03/27/2023 Office Visit Internal Medicine Marcela Pinto MD 200 [place] [address] 04/02/2023 Office Visit Orthopedics Eliezer Gifford, [address] [place] [address] 09/18/2023 Office Visit Cardiology Hammad Lopez, [address] [place] [address] Health Maintenance Due Date Last Done Comments [...] Additional history exists CKD PHOS USE SMARTSET 61755 08/05/202307/14, 02/19/2022, 03/09/2021, Additional history exists DIABETES-FOOT EXAM 10/10/2023 10/10/2022, 0 11/19/2021, 12/21/2020, Additional history exists Depression Screening, Annual for Pts 12 and Over 10/10/2023 10/10/2022 O2 ASSESSMENT COMPLETED IN PAST YEAR FOR COPD 11/24/2023 11/24/2022 CKD HGB USE SMARTSET 31471 12/25/202312/24, 12/24/2022, 12/18/2022, Additional history exists DXA [...] Onset Date Last Indicated Resolved Time ESBL Comment:[facility] 11/1911/19/2022 11/25/2022 documented as of this [...] Advance Directives occurred with: Patient Care Teams Welding Machine Assembler Relationship Specialty Start Date End Date Marcela Pinto MD [address] [place] [address] [place] [address] PCP - General Internal Medicine 08/04/14 documented as of this encounter
--- OUTSIDE RECORDS SUMMARY | 2023-06-18 02:20 | External Medical Summary | Summary of Care ---
Author Name Unknown Organization [facility] Address [address] [place] [address] Phone [phone] Care Team Providers Care Lithograph Press Operator Tinware Name Role Phone Marcela Pinto MD Primary Care Provider + Reason for Visit * Reason Comments Outpatient Testing Encounter Details Date Type Department Care Team Description 12/24/2022 Laboratory Laboratory [facility] [address] [place] [id number] [facility] [address] [place] [address] Chronic kidney disease, stage 3a (HCC); Anemia, unspecified type Allergies Active Allergy Reactions Severity Noted Date Comments Valsartan 07/10/2010 Enalapril 05/21/2006 Escitalopram Oxalate Nausea/vomiting 10/11/2009 Nauseated Iodinated Contrast Media Nausea/vomiting 2009 IV Contrast Iodine Hives 12/18/2009 IV Contrast [place] Oil-Black Currant-Vit E 07/10/2010 Verapamil 03/21/2004 Bupropion Hcl 10/30/2009 Makes pt sick in the stomach documented as of this encounter (statuses as of 12/24/2022) Medications Medication Sig Dispensed Refills Start Date End Date Status oxygen GAS Use 2 L/min(Oxygen) as directed daily. and 4 L/min at night. 0 Active predniSONE 50 MG Oral Tablet (Deltasone)Indicati ons:Colonic diverticular abscess One tablet 13 hours, 7 hours and 1 hour prior to scheduled dye 3 Tablet 0 08/21/2022 Active Additional Information Patient not taking.Reported on 12/24/2022 Promethazine HCl 25 MG Oral Tablet (Phenergan)Indicati [...] Respimat 1.25 MCG/ACT Inhalation Aerosol Solution (Tiotropium [place] Monohydrate) Inhale 2 Puffs by mouth in the morning. 4 g 0 12/11/2022 Active Ventolin HFA 108 (90 Base) MCG/ACT Inhalation Aerosol Solution Inhale 2 Puffs by mouth in the morning and 2 Puffs before bedtime. 18 g 1 12/11/2022 Active Vitamin D3 50 MCG (2000 UT) Oral Capsule Take 1 Capsule by mouth in the morning. 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 90 Tablet 1 12/11/2022 Active Atorvastatin Calcium 40 MG [...] Friday only. 45 Tablet 3 12/11/2022 Active Ipratropium-Albuter ol 20-100 MCG/ACT Inhalation Aerosol Solution (Combivent Respimat)Indication s:Asthma with severity to be determined,COPD, moderate ([facility]) TAKE 1 PUFF BY MOUTH 4 TIMES A DAY 12 g 12/11/2022 Active Potassium Chloride Annalisa ER 20 MEQ Oral Tablet Extended Release (Klor-Con M20)Indications:HTN , goal below 140/90 Take 1 Tablet by mouth in the morning. 90 Tablet 3 12/11/2022 Active Glimepiride 2 MG Oral Tablet (Amaryl) TAKE 1 TABLET BY MOUTH EVERY DAY WITH BREAKFAST 90 Tablet 1 12/11/2022 Active Ondansetron 8 MG Oral Tablet Disintegrating (Zofran) DISSOLVE 1 TABLET ON TONGUE EVERY 8 HOURS NEEDED FOR NAUSEA 60 Tablet 5 12/11/2022 Active Sertraline HCl 25 MG Oral Tablet (Zoloft)Indications :Major depressive disorder with single episode, in partial remission (HCC),HECTOR (generalized anxiety disorder) TAKE 1 TABLET BY MOUTH EVERY DAY IN THE MORNING 90 Tablet 1 12/11/2022 Active Zafirlukast 20 MG Oral Tablet (Accolate)Indicatio ns:Asthma with severity to be determined Take 1 Tablet by mouth in the morning. 90 Tablet 3 12/11/2022 Active Dicyclomine HCl 20 MG Oral Tablet (Bentyl)Indications :Chronic constipation Take 1 Tablet by mouth in the morning. 90 Tablet 2 12/11/2022 Active Ventolin HFA 108 (90 Base) [...] as of this encounter (statuses as of 12/24/2022) Active Problems Problem Noted Date Full code [...] as of this encounter (statuses as of 12/24/2022) Resolved Problems Problem Noted Date Resolved Date [...] Hypoxemia 10/08/2011 10/30/2015 Genetic Sleep Disorder Research Other*[id number] 07/25/2011 05/15/2016 COPD, moderate 07/19/2011 07/28/2019 Overview: [...] as of this encounter (statuses as of 12/24/2022) Immunizations Name Administration Dates Next Due COVID-19 mRNA, LNP-s, No Pre serve, 2-Dose Series ([employer]) 08/21/2021,12/22/2020,2020 COVID-19, LNP-s, No Preserve , Tyler-sucrose, Ages 12+ (Pfizer) 04/16/2022 Hepatitis B, 20+ yrs 10/01/2017,04/21/2017,03/20 Pneumococcal Conjugate Vacc, 13 Valent (Prevnar) 03/28/2015 Pneumococcal Conjugate Vacci ne, 20-valent ([id number]) 04/01/2022 Pneumococcal Polysaccharide PPV23 (Pneumovax) 05/21/2006 Seasonal [...] Encounters Date Type Specialty Care Team Description 12/30/2022 Home Visit Family Medicine Lacy Grant, [address] [place] [address] 01/03/2023 Office Visit Cardiology Hammad Lopez DO [address] [place] [address] 03/27/2023 Office Visit Internal Medicine Marcela Pinto MD 200 [facility], [place] [address] 04/02/2023 Office Visit Orthopedics Eliezer Gifford, DO [address] [place] [address] Pending Results Name Type Priority Associated Diagnoses Date /Time COMPREHENSIVE METABOLIC PANEL Lab Routine Chronic kidney disease, stage 3a (HCC) 12/24/2022 2:47 PM EDT CBC WITH WBC DIFFERENTIAL Lab Routine Anemia, unspecified type 12/24/2022 2:47 PM EDT CBC Lab Routine Anemia, unspecified type 12/24/2022 2:47 PM EDT DIFFERENTIAL, AUTOMATED Lab Routine Anemia, unspecified type 12/24/2022 2:47 PM EDT Health Maintenance Due Date Last [...] Additional history exists GFR - Renal Function 06/13/2023 12/11/2022, 12/06/2022, 12/02/2022, Additional history exists CKD PHOS USE SMARTSET 17833 08/05/202307/14, 02/19/2022, 03/09/2021, Additional history exists DIABETES-FOOT EXAM 10/10/2023 10/10/2022, 0 11/19/2021, 12/21/2020, Additional history exists Depression Screening, Annual for Pts 12 and Over 10/10/2023 10/10/2022 O2 ASSESSMENT COMPLETED IN PAST YEAR FOR COPD 11/24/2023 11/24/2022 CKD HGB USE SMARTSET 93266 12/19/202312/18, 12/18/2022, 12/11/2022, Additional history exists DXA Scan 08/08/2025 08/08/2020, [...] encounter Visit Diagnoses Diagnosis Chronic kidney disease, stage 3a (HCC) Anemia, unspecified type documented in this encounter Additional Health Concerns Infection Onset Date Last Indicated Resolved Time ESBL Comment:[facility] 11/1911/19/2022 11/25/2022 documented as of this [...] Advance Directives occurred with: Patient Care Teams Lithograph Press Operator Tinware Relationship Specialty Start Date End Date Marcela Pinto MD 200 [facility] [place] [address] PCP - General Internal Medicine 08/04/14 documented as of this encounter
--- OUTSIDE RECORDS SUMMARY | 2023-06-18 02:20 | External Medical Summary | Summary of Care ---
Author Name Unknown Organization [facility] Address [address] [place] [address] Phone [phone] Care Team Providers Care Acid Tester Name Role Phone Marcela Pinto MD Primary Care Provider + Reason for Visit * Reason Comments case management Encounter Details Date Type Department Care Team Description 01/02/2023 Keyseating Machine Set Up OperatorAnthropology Department Chair Practice [address] [facility] [place] [address] [place] [address] Joanna Smith, RN Medical home patient encounter* Allergies Active Allergy Reactions Severity Noted Date Comments Valsartan 07/10/2010 Enalapril 05/21/2006 Escitalopram Oxalate Nausea/vomiting 10/11/2009 Nauseated Iodinated Contrast Media Nausea/vomiting 2009 IV Contrast Iodine Hives 12/18/2009 IV Contrast [place] Oil-Black Currant-Vit E 07/10/2010 Verapamil 03/21/2004 Bupropion Hcl 10/30/2009 Makes pt sick in the stomach documented as of this encounter (statuses as of 01/02/2023) Medications Medication Sig Dispensed Refills Start Date [...] Respimat 1.25 MCG/ACT Inhalation Aerosol Solution (Tiotropium [place] Monohydrate) Inhale 2 Puffs by mouth in [...] Oral Tablet Extended Release 24 Hour (toPROL XL)Indications:Peach Grower akin 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),NICM (nonischemic cardiomyopathy) (HCC),Presence of Watchman left atrial appendage closure device TAKE 1/2 TABLET BY MOUTH EVERY DAY 45 Tablet 3 12/11/2022 Active Atorvastatin Calcium 40 MG Oral [...] as of this encounter (statuses as of 01/02/2023) Active Problems Problem Noted Date Full code [...] as of this encounter (statuses as of 01/02/2023) Resolved Problems Problem Noted Date Resolved Date [...] Hypoxemia 10/08/2011 10/30/2015 Genetic Sleep Disorder Research Other*[id number] 07/25/2011 05/15/2016 COPD, moderate 07/19/2011 07/28/2019 Overview: [...] as of this encounter (statuses as of 01/02/2023) Immunizations Name Administration Dates Next Due COVID-19 mRNA, LNP-s, No Pre serve, 2-Dose Series ([employer]) 08/21/2021,12/22/2020,2020 COVID-19, LNP-s, No Preserve , Tyler-sucrose, Ages 12+ (Pfizer) 04/16/2022 Hepatitis B, 20+ yrs 10/01/2017,04/21/2017,03/20 Pneumococcal Conjugate Vacc, 13 Valent (Prevnar) 03/28/2015 Pneumococcal Conjugate Vacci ne, 20-valent ([id number]) 04/01/2022 Pneumococcal Polysaccharide PPV23 (Pneumovax) 05/21/2006 Seasonal [...] Progress Notes * Joanna Smith RN - 01/02/2023 10:09 AM EDT Call for [facility] follow up-Week 1 Pt reports she is doing well. She is having some allergy symptoms today but took an allergy pill. She has PT coming in later today and states that she feels it has been helpful. Per chart review pt was ordered a raised toilet seat which was faxed to DME provider. CM will continue to follow up. documented in this encounter Plan of Treatment Upcoming Encounters Date Type Specialty Care Team Description 01/03/2023 Office Visit Cardiology Hammad Lopez DO [address] [place] [address] 03/27/2023 Office Visit Internal Medicine Marcela Pinto MD 200 [facility] [place], [place] [address] 04/02/2023 Office Visit Orthopedics Eliezer Gifford, [address] [place] [address] Health Maintenance Due Date Last Done Comments [...] Additional history exists CKD PHOS USE SMARTSET 70528 08/05/202307/14, 02/19/2022, 03/09/2021, Additional history exists DIABETES-FOOT EXAM 10/10/2023 10/10/2022, 0 11/19/2021, 12/21/2020, Additional history exists Depression Screening, Annual for Pts 12 and Over 10/10/2023 10/10/2022 O2 ASSESSMENT COMPLETED IN PAST YEAR FOR COPD 11/24/2023 11/24/2022 CKD HGB USE SMARTSET 80765 12/25/202312/24, 12/24/2022, 12/18/2022, Additional history exists DXA [...] Date Last Indicated Resolved Time ESBL Comment:[facility] 11/1911/19/2022 11/25/2022 documented as of this [...] Directives occurred with: Patient Care Teams Acid Tester Relationship Specialty Start Date End Date Marcela Pinto MD [address] [place] [address] PCP - General Internal Medicine 08/04/14 documented as of this encounter
--- OUTSIDE RECORDS SUMMARY | 2023-06-18 02:20 | External Medical Summary ---
Author Name Unknown Address Unknown Organization K09:[facility] [place] [address] Laboratory Report Ordering Provider Test Date Status JOSE A JOHNSON 12/24/2022 14:47:13 Final Observation Date Value Abnormality Reference (Units ) Status SYNC LEUKOCYTES IN BLOOD BY AUTOMATED COUNT 12/24/2022 14:47:13 14.96 Above high normal 4.00-10.80 (K/uL) Final Neutrophils/100 leukocytes in Blood by Manual count 12/24/2022 14:47:13 81.0 Above high normal 40.0-75.0 (%) Final Lymphocytes/100 leukocytes in Blood by Manual count 12/24/2022 14:47:13 13.0 Below low normal 18.0-42.0 (%) Final Monocytes/100 leukocytes in Blood by Manual count 12/24/2022 14:47:13 5.0 1.0-11.0 (%) Final Metamyelocytes/100 leukocytes in Blood by Manual count 12/24/2022 14:47:13 1.0 Above high normal <=0.0 (%) Final Neutrophils [#/volume] in Blood by Manual count 12/24/2022 14:47:13 12.12 Above high normal 1.80-7.70 (K/uL) Final Lymphocytes [#/volume] in Blood by Manual count 12/24/2022 14:47:13 1.94 1.00-4.80 (K/uL) Final Monocytes [#/volume] in Blood by Manual count 12/24/2022 14:47:13 0.75 0.00-1.10 (K/uL) Final Metamyelocytes [#/volume] in Blood by Manual count 12/24/2022 14:47:13 0.15 Above high normal <=0.00 (K/uL) Final Nucleated erythrocytes/100 leukocytes [Ratio] in Blood by Automated count 12/24/2022 14:47:13 Final Anisocytosis [Presence] in Blood by Light microscopy 12/24/2022 14:47:13 Slight Abnormal None Seen Final Elliptocytes [Presence] in Blood by Light microscopy 12/24/2022 14:47:13 Few Abnormal None Seen Final Hypochromia [Presence] in Blood by Light microscopy 12/24/2022 14:47:13 Slight Abnormal None Seen Final Polychromasia [Presence] in Blood by Light microscopy 12/24/2022 14:47:13 Slight Abnormal None Seen Final Performing Location [facility] [place] [address]
--- OUTSIDE RECORDS SUMMARY | 2023-06-18 02:20 | External Medical Summary | Summary of Care ---
Author Name Unknown Organization [facility] Address [address] [place] [address] Phone [phone] Care Team Providers Care Tar Heater Operator Name Role Phone Marcela Pinto MD Primary Care Provider + Reason for Visit * Reason Comments Follow Up Encounter Details Date Type Department Care Team Description 01/03/2023 Office Visit Cardiology, [facility] [address] [place] [address] Hammad Lopez DO [address] [place] [address] Chronic 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)*; NICM (nonischemic cardiomyopathy) ([facility]); Presence of Watchman left atrial appendage closure device; Permanent atrial fibrillation (HCC); Dyslipidemia Allergies Active Allergy Reactions Severity Noted Date Comments Valsartan 07/10/2010 Enalapril 05/21/2006 Escitalopram Oxalate Nausea/vomiting 10/11/2009 Nauseated Iodinated Contrast Media Nausea/vomiting 2009 IV Contrast Iodine Hives 12/18/2009 IV Contrast [place] Oil-Black Currant-Vit E 07/10/2010 Verapamil 03/21/2004 Bupropion Hcl 10/30/2009 Makes pt sick in the stomach documented as of this encounter (statuses as of 01/03/2023) Medications Medication Sig Dispensed Refills Start Date [...] Respimat 1.25 MCG/ACT Inhalation Aerosol Solution (Tiotropium [place]ank Monohydrate) Inhale 2 Puffs by mouth in [...] WITH BREAKFAST 90 Tablet 1 3 Active HYDROcodone-Acetami nophen 5-325 MG Oral TabletIndications:G eneralized osteoarthritis Take 1 Tablet by mouth every 6 hours as needed for Pain, Mild. 120 Tablet 0 3 Active Metoprolol Succinate ER 25 MG Oral Tablet Extended Release 24 Hour (Toprol XL) Take one tablet in AM and 1/2 table in the evening. 45 Tablet 6 3 Active predniSONE 50 MG Oral Tablet (Deltasone)Indicati ons:Colonic diverticular abscess One tablet 13 hours, 7 hours and 1 hour prior to scheduled dye 3 Tablet 0 2 01/04/20 23 Discontinu ed(End of Procedure) Metoprolol Succinate ER 25 MG Oral Tablet Extended Release 24 Hour (toPROL XL)Indications:Refuse Collector akin 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),NICM (nonischemic cardiomyopathy) (HCC),Presence of Watchman left atrial appendage closure device TAKE 1/2 TABLET BY MOUTH EVERY DAY 45 Tablet 3 3 01/04/20 23 Discontinu ed(Medicat ion/Dose Changed) documented as of this encounter (statuses as of 01/03/2023) Active Problems Problem Noted Date Full code [...] as of this encounter (statuses as of 01/03/2023) Resolved Problems Problem Noted Date Resolved Date [...] Hypoxemia 10/08/2011 10/30/2015 Genetic Sleep Disorder Research Other*[id number] 07/25/2011 05/15/2016 COPD, moderate 07/19/2011 07/28/2019 Overview: [...] as of this encounter (statuses as of 01/03/2023) Immunizations Name Administration Dates Next Due COVID-19 mRNA, LNP-s, No Pre serve, 2-Dose Series ([employer]) 08/21/2021,12/22/2020,2020 COVID-19, LNP-s, No Preserve , Tyler-sucrose, Ages 12+ (Pfizer) 04/16/2022 Hepatitis B, 20+ yrs 10/01/2017,04/21/2017,03/20 Pneumococcal Conjugate Vacc, 13 Valent (Prevnar) 03/28/2015 Pneumococcal Conjugate Vacci ne, 20-valent ([id number]) 04/01/2022 Pneumococcal Polysaccharide PPV23 (Pneumovax) 05/21/2006 Seasonal [...] Date Smoking Tobacco: Never Smokeless Tobacco: Never Tobacco Cessation:Counseling Given: Not Answered Alcohol Use Standard Drinks/Week Comments No 0 [...] Sign Reading Time Taken Comments Blood Pressure 106/66 01/03/2023 3:26 PM EDT Pulse 98 01/03/2023 3:26 PM EDT Temperature - - Respiratory Rate 16 01/03/2023 3:26 PM EDT Oxygen Saturation 99% 01/03/2023 3:26 PM EDT 2 LPM NC Inhaled Oxygen Concentration - - Weight 93.9 kg (207 lb 1.6 oz) 01/03/2023 3:26 P M EDT Height - - Body Mass Index 34.46 12/17/2022 10:14 AM EST documented in this [...] as of this encounter Progress Notes * Hammad Lopez, DO - 01/03/2023 3:36 PM EDT SUBJECTIVE: Patient returns today for follow-up of chronic heart failure with reduced ejection fraction, nonischemic cardiomyopathy, and permanent atrial fibrillation status post watchman device implantation. Hospitalized in November due to diverticulitis. Surgery performed. She was discharged to [facility] then transferred to [facility] for total of 21 days. Has returned home and is feeling much better. No significant lower extremity edema, orthopnea, or PND. Voices concern regarding intermittent elevated heart rate. Medication list currently reports 1/2 tablet of metoprolol daily. Previously patient prescribed 25 mg in the morning, 12.5 mg in the evening. Daughter present for today's visit. Offers no additional concerns/complaints. ROS: All others negative other than those noted in the HPI. 3 Day Zio monitor report 11/12/2021: Atrial Fibrillation occurred continuously (100% burden), ranging from 44- 153 bpm (avg of 78 bpm). Isolated VEs were frequent (17.5%, [id number]), VE Couplets were rare (<1.0%, 1152), and VE Triplets were rare (<1.0%, 148). Ventricular Bigeminy and Trigeminy were present. The patient is submitted 1 diary entry /event marker which correlated with atrial fibrillation withventricular trigeminy. 2D echocardiogram report [facility] 11/17/2022: LVEF 40-45% Mild to moderate global hypokinesis of the left ventricle. Severe biatrial enlargement. Moderate aortic valve sclerosis without stenosis. Severe mitral regurgitation. Mild tricuspid regurgitation. Doppler findings do not suggest pulmonary hypertension. 2D echocardiogram report September 03, 2021: The rhythm during the transthoracic echo examination was atrial fibrillation with controlled ventriculr response. The left ventricular cavity is moderately dilated (LVED volume 71-80 ml/m^2). The qualitative LV ejection fraction is 40-44% (mildly reduced). The LV wall thickness is moderately increased (concentric). There is mild diffuse left ventricular hypokinesis. The left atrium is severely enlarged (>48 ml/m^2,). There is aortic valve sclerosis without stenosis. Moderate mitral regurgitation is present. The mitral regurgitation jet is posteriorly directed. Mild tricuspid regurgitation is present. The estimated pulmonary artery systolic pressure is 44mm Hg. 2D echo report summary [facility] 02/26/21: LV systolic function is mildly reduced. Ejection fraction 40-45% Mild concentric left ventricular hypertrophy. Mild global hypokinesis. Moderate aortic valve sclerosis without stenosis. Mild mitral regurgitation. Patient Active Problem List Diagnosis Code Asthma [...] goal of less than 7.5% ([facility]) E11.9 Elevated plasma metanephrines R79.89 Irritable bowel syndrome with constipation K58.1 HECTOR (generalized anxiety disorder) F41.1 COPD, group B, 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 ([facility]) J44.9 Morbid obesity with BMI of 40.0-44.9, adult ([facility]) E66.01, Z68.41 Gastro-esophageal reflux disease without esophagitis K21.9 Paroxysmal atrial fibrillation ([facility]) I48.0 Chronic systolic heart failure ([facility]) I50.22 Pulmonary HTN ([facility]) I27.20 Chronic hypoxemic respiratory failure ([facility]) J96.11 Chronic kidney disease, stage 3a ([facility]) N18.31 Subclinical hyperthyroidism E05.90 History of ESBL E. coli infection Z86.19 Type 2 diabetes mellitus with stage 3a chronic kidney disease, without long- term current use ofinsulin ([facility]) E11.22, N18.31 Gastroparesis K31.84 Ischemic colitis ([facility]) K55.9 Asthma, mild persistent J45.30 Diverticulitis of intestine with abscess K57.80 Protein-calorie malnutrition ([facility]) E46 UTI due to extended-spectrum beta lactamase (ESBL) producing Escherichia coli N39.0, B96.29, Z16.12 History of colon resection Z90.49 Wound dehiscence T81.30XA History of 2019 novel coronavirus disease (COVID-19) Z86.16 Post-op pain G89.18 Presence of Watchman left atrial appendage closure device Z95.818 Full code status Z78.9 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 Tobacco Use Smoking status: Never Smoker Smokeless tobacco: Never Used Substance Use Topics Alcohol use: No Drug use: No Vaping/E-Cigarette Use Vaping/E-Cigarette Use Never User Vaping/E-Cigarette Substances Nicotine No Other No Flavoring No THC No Cannabidiol (CBD) No Vaping/E-Cigarette Devices Disposable No Pre-filled or Refillable Cartridge No Refillable Tank No Pre-filled Pod No Review of patient's allergies indicates: Allergen Reactions Diovan [Valsartan] Enalapril Escitalopram Oxalate Nausea/vomiting Nauseated Iodinated Contrast Media Nausea/vomiting IV Contrast Iodine Hives IV Contrast [place] Oil-Black Currant-Vit E Verapamil Wellbutrin [Bupropion Hcl] Makes pt sick in the stomach Current Outpatient Medications Medication Sig Dispense Refill [...] Respimat 1.25 MCG/ACT Inhalation Aerosol Solution (Tiotropium Eubank Monohydrate) Inhale 2 Puffs by mouth in the morning. 4 g 0 Ventolin HFA 108 (90 Base) MCG/ACT Inhalation Aerosol Solution Inhale 2 Puffs by mouth in the morning and 2 Puffs before bedtime. 18 g 1 Vitamin D3 50 MCG (1999 UT) Oral Capsule Take 1 Capsule by mouth in the morning. 30 Capsule 5 Metoprolol Succinate ER 25 MG Oral Tablet Extended Release 24 Hour (toPROL XL) TAKE 1/2 TABLET BY MOUTH EVERY DAY 45 Tablet 3 Atorvastatin Calcium 40 MG Oral Tablet (Lipitor) [...] mouth in the morning. 90 Tablet 3 Albuterol Sulfate (2.5 MG/3ML) 0.083% Inhalation Nebulization [...] morning and evening meals. 60 Tablet 1 Ipratropium-Albuterol 20-100 MCG/ACT Inhalation Aerosol Solution [...] MOUTH EVERY DAY WITH BREAKFAST 90 Tablet1 HYDROcodone-Acetaminophen 5-325 MG Oral Tablet Take 1 Tablet by mouth every 6 hours as needed for Pain, Mild. 120 Tablet 0 Brinzolamide 1 % Ophthalmic Suspension [...] COPD, CHRONIC RESPIRATORY FAILURE 1 Each 1 Zoster Vac Recomb Adjuvanted 50 MCG/0.5ML Intramuscular Suspension Reconstituted (Shingrix) Inject 0.5 mL into a large muscle now and repeat dose in 60 to 180 days 1 Each 1 No current facility-administered medications for this visit. Lipid Panel Results: Results for orders placed or performed in visit on 07/27/18 LIPID PANEL Result Value Ref Range HOURS FASTING >8 HOURS hours Triglycerides 119 <200 mg/dL Cholesterol 173 <200 mg/dL HDL Cholesterol 54 >39 mg/dL Cholesterol-HDL Ratio 3.2 LDL Cholesterol 95 0 - 129 mg/dL Results for orders placed or performed in visit on 07/16/16 LIPID PANEL WITH DIRECT LDL IF TG ABOVE 400 MG/DL Result Value Ref Range HOURS FASTING 12 hours Triglycerides 193 <200 mg/dL Cholesterol 184 <200 mg/dL HDL Cholesterol 49 >39 mg/dL Cholesterol-HDL Ratio 3.8 LDL Cholesterol 96 0 - 129 mg/dL LDL Cholesterol (Direct Measure) NOT APPLICABLE 0 - 129 mg/dL Lab Results Component Value Date/Time TSH - [facility] 8.88 (H) 12/18/2022 05:41 AM TSH - [facility] 1.13 02/19/2022 04:04 PM TSH - [facility] 13.40 (H) 11/19/2021 03:29 PM TSH - [facility] 0.42 07/27/2018 11:32 AM TSH - [facility] 0.60 01/14/2018 12:03 PM TSH - [facility] 0.88 05/19/2017 12:11 PM TSH - [facility] 0.965 12/05/2020 12:00 AM TSH - [facility] 0.241 (A) 06/28/2020 12:00 AM TSH - [facility] 0.443 03/10/2020 12:00 AM CBC Results: Results for orders placed or performed in visit on 08/24/18 CBC Result Value Ref Range WBC 10.09 4.00 - 10.80 K/uL RBC 4.22 3.85 - 5.15 M/uL HGB 11.2 (L) 12.0 - 15.3 g/dL HCT 37.4 36.0 - 45.2 % MCV 88.6 81.5 - 97.5 fL MCH 26.5 (L) 27.0 - 34.0 pg MCHC 29.9 (L) 32.0 - 36.0 g/dL RDW 15.1 11.5 - 15.5 % Plt 366 140 - 400 K/uL MPV 10.2 6.6 - 11.1 fL OBJECTIVE/PHYSICAL EXAMINATION: BP 106/66 (BP Site: Left Arm, BP Position: Sitting, BP Cuff Size: Large) | Pulse 98 | Resp 16 | Wt 93.9 kg (207 lb 1.6 oz) | SpO2 99% Comment: 2 LPM NC | BMI 34.46 kg/m | BSA 2.08 m General: NAD, AAO x3, well nourished. Obese. HEENT: Normocephalic. Atraumatic. Conjunctiva pink, noscleral icterus. No carotid bruits, the carotid upstrokes are brisk. No JVD. No HJR Heart: Irregular rhythm, borderline tachycardia, normal S-1 and S-2. Soft, 1/6 systolic ejection murmur heard best at the right 2nd intercostal space. PMI is not displaced. No RV heave. Lungs: Clear bilateral without rales , rhonchi, or wheeze. Abdomen: Normal bowel sounds. Soft. Nontender. No masses or organomegaly. No abdominal bruits. Extremities:Trace pedal edema. No clubbing, or cyanosis. Pulses: radial=2/4, Dorsalis pedis =2/4, posterior tibial=2/4. Neuro: No focal deficits. ASSESSMENT: 1. Chronic heart failure with reduced ejection fraction -stable class 3 functional capacity -moderate to severe mitral regurgitation 2. Nonischemic cardiomyopathy -cardiac catheterization performed November 2020 in [place] demonstrating mild nonobstructive coronary disease. 3. Chronic atrial fibrillation s/p watchman device implant -borderline rate control -metoprolol dose reduced after recent hospitalization 4. Dyslipidemia - patient reports myalgia associated with 80 mg Lipitor 5. Severe oxygen-dependent COPD with chronic hypercapnia 6. CKD stage 3a 7. Hyperthyroid on tapazole - dose recently reduced PLAN: Increase metoprolol to 25 mg in the a.m., 12.5 mg in the evening. Continue other cardiovascular meds including furosemide 40 mg twice daily, atorvastatin, spironolactone, and low-dose aspirin. Monitor daily weight. Restrict sodium intake to less than 2 g daily. Diuretic protocol reviewed: Instructed to take 80 mg of Lasix in the afternoon if weight increases morethan 2 lb in a 48 hour period, or 5 lb in 1 week. All questions answered to satisfaction of both the patient and her daughter. Follow Up: Return in about 6 months (around 07/06/2023). Hammad Lopez DO, FACC Associate Cardiology - Connie Doran documented in this encounter Nursing Notes * Mary Oglesby CMA - 01/03/2023 3:20 PM EDT Examination Room: 13 Name: Nina Harrington Date of : (1940). Reason for Visit: 4M f/u Interim Hospitalization(s): [facility] Problems/Concerns: [facility] home health nurses have been noticing fluctuating HRs on pulse ox at home- denies palpitations, racing, fluttering. Chest Pain/SOB: Notes some worsening SOBOE [facility] Discussed: Not applicable [facility] is a way you can talk to your provider online through e-mail. Would you like to sign up? I can activate it for you? ALREADY ACTIVE Patient was instructed to not get up on the exam table until directed and assisted by their provider; patient is to remain seated in the chair/ wheelchair/ exam table for fall prevention and safety reasons. Patient is aware to have assistance to step down off exam table with personnel. Patient voiced full comprehension of instructions. documented in this encounter Plan of Treatment Upcoming Encounters Date Type Specialty Care Team Description 03/27/2023 Office Visit Internal Medicine Marcela Pinto MD [address] [facility] [place], [place] [address] 04/02/2023 Office Visit Orthopedics Eliezer Gifford, DO [address] [place] [address] 09/18/2023 Office Visit Cardiology Hammad Lopez, DO [address] [place] [address] Health Maintenance Due Date Last Done Comments [...] Additional history exists CKD PHOS USE SMARTSET 67253 08/05/202307/14, 02/19/2022, 03/09/2021, Additional history exists DIABETES-FOOT EXAM 10/10/2023 10/10/2022, 0 11/19/2021, 12/21/2020, Additional history exists Depression Screening, Annual for Pts 12 and Over 10/10/2023 10/10/2022 O2 ASSESSMENT COMPLETED IN PAST YEAR FOR COPD 11/24/2023 11/24/2022 CKD HGB USE SMARTSET [id number] 12/25/202312/24, 12/24/2022, 12/18/2022, Additional history exists DXA [...] of this encounter Visit Diagnoses Diagnosis Chronic 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)- Primary NICM (nonischemic cardiomyopathy) (HCC) Other primary cardiomyopathies Presence of Watchman left atrial appendage closure device Permanent atrial fibrillation (HCC) Atrial fibrillation Dyslipidemia Other and unspecified hyperlipidemia documented in this encounter Additional Health Concerns Infection Onset Date Last Indicated Resolved Time ESBL Comment:[facility] 11/1911/19/2022 11/25/2022 documented as of [...] Advance Directives occurred with: Patient Care Teams Tar Heater Operator Relationship Specialty Start Date End Date Marcela Pinto MD [address] [facility] [place], [place] [address] PCP - General Internal Medicine 08/04/14 documented as of this encounter"
--- OUTSIDE RECORDS SUMMARY | 2023-06-18 02:20 | External Medical Summary ---
Author Name Unknown Address Unknown Organization K09:[facility] [address] [place] [address] Laboratory Report Ordering Provider Test Date Status JOSE A JOHNSON 12/24/2022 14:47:13 Final Observation Date Value Abnormality Reference (Units ) Status WBC, Total 12/24/2022 14:47:13 14.96 Above high normal 4 .00-10.80 (K/uL) Final RBC 12/24/2022 14:47:13 3.52 3.85-5.15 (M/uL) Final Hemoglobin 12/24/2022 14:47:13 10.1 Below low normal 12 .0-15.3 (g/dL) Final HCT 12/24/2022 14:47:13 32.6 Below low normal 36. 0-45.2 (%) Final MCV 12/24/2022 14:47:13 92.6 81.5-97.5 (fL) Final MCH 12/24/2022 14:47:13 28.7 27.0-34.0 (pg) Final MCHC 12/24/2022 14:47:13 31.0 32.0-36.0 (g/dL) Final RDW 12/24/2022 14:47:13 15.6 11.5-15.5 (%) Final Platelets 12/24/2022 14:47:13 368 140-400 (K /uL) Final MPV 12/24/2022 14:47:13 9.8 6.6-11.1 ( fL) Final Performing Location [facility] [place] [address]
--- OUTSIDE RECORDS SUMMARY | 2023-06-18 02:20 | External Medical Summary | Summary of Care ---
Author Name Unknown Organization [facility] Address [address] [place] [address] Phone [phone] Care Team Providers Care Resource Room Teacher Name Role Phone Marcela Pinto MD Primary Care Provider + Reason for Visit * Reason Comments eRx-Medication Refill Encounter Details Date Type Department Care Team Description 12/29/2022 Refill General Internal Medicine [facility] [address] [place] [address] Marcela Pinto MD [address] [place] [address] Asthma with severity to be determined; COPD, moderate (HCC); Major depressive disorder with single episode, in partial remission (HCC); HECTOR (generalized anxiety disorder); Hyperthyroidism; Chronic constipation Allergies Active Allergy Reactions Severity Noted Date Comments Valsartan 07/10/2010 Enalapril 05/21/2006 Escitalopram Oxalate Nausea/vomiting 10/11/2009 Nauseated Iodinated Contrast Media Nausea/vomiting 2009 IV Contrast Iodine Hives 12/18/2009 IV Contrast [place] Oil-Black Currant-Vit E 07/10/2010 Verapamil 03/21/2004 Bupropion Hcl 10/30/2009 Makes pt sick in the stomach documented as of this encounter (statuses as of 12/31/2022) Medications Medication Sig Dispensed Refills Start Date End Date Status oxygen GAS Use 2 L/min(Oxygen) as directed daily. and 4 L/min at night. 0 Active predniSONE 50 MG Oral Tablet (Deltasone)Indicat ions:Colonic diverticular abscess One tablet 13 hours, 7 hours and 1 hour prior to scheduled dye 3 Tablet 0 2 Active Additional Information Patient not taking.Reported on 12/24/2022 Promethazine HCl 25 MG Oral Tablet (Phenergan)Indicat [...] Respimat 1.25 MCG/ACT Inhalation Aerosol Solution (Tiotropium [place] Monohydrate) Inhale 2 Puffs by mouth in the morning. 4 g 0 3 Active Ventolin HFA 108 (90 Base) MCG/ACT Inhalation Aerosol Solution Inhale 2 Puffs by mouth in the morning and 2 Puffs before bedtime. 18 g 1 3 Active Vitamin D3 50 MCG (2000 UT) Oral Capsule Take 1 Capsule by mouth in the morning. 30 Capsule 5 3 Active Metoprolol Succinate ER 25 MG Oral Tablet Extended Release 24 Hour (toPROL XL)Indications:Chr onic 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),NICM (nonischemic cardiomyopathy) (HCC),Presence of Watchman left atrial appendage closure device TAKE 1/2 TABLET BY MOUTH EVERY DAY 45 Tablet 3 3 Active Atorvastatin Calcium 40 MG Oral [...] WITH BREAKFAST 90 Tablet 1 3 Active methIMAzole 5 MG Oral Tablet (Tapazole) Take 1 Tablet by mouth in the morning. 90 Tablet 1 3 023 Discontinued Ipratropium-Albute rol 20-100 MCG/ACT Inhalation Aerosol Solution (Combivent Respimat)Indicatio ns:Asthma with severity to be determined,COPD, moderate (HCC) TAKE 1 PUFF BY MOUTH 4 TIMES A DAY 12 g 1 3 023 Discontinued Glimepiride 2 MG Oral Tablet (Amaryl) TAKE 1 TABLET BY MOUTH EVERY DAY WITH BREAKFAST 90 Tablet 1 3 023 Discontinued Sertraline HCl 25 MG Oral Tablet (Zoloft)Indication s:Major depressive disorder with single episode, in partial remission (HCC),HECTOR (generalized anxiety disorder) TAKE 1 TABLET BY MOUTH EVERY DAY IN THE MORNING 90 Tablet 1 3 023 Discontinued Dicyclomine HCl 20 MG Oral Tablet (Bentyl)Indication s:Chronic constipation Take 1 Tablet by mouth in the morning. 90 Tablet 2 3 023 Discontinued documented as of this encounter (statuses as of 12/31/2022) Active Problems Problem Noted Date Full code [...] as of this encounter (statuses as of 12/31/2022) Resolved Problems Problem Noted Date Resolved Date [...] Hypoxemia 10/08/2011 10/30/2015 Genetic Sleep Disorder Research Other*[id number] 07/25/2011 05/15/2016 COPD, moderate 07/19/2011 07/28/2019 Overview: [...] as of this encounter (statuses as of 12/31/2022) Immunizations Name Administration Dates Next Due COVID-19 mRNA, LNP-s, No Pre serve, 2-Dose Series (IZEA) 08/21/2021,12/22/2020,2020 COVID-19, LNP-s, No Preserve , Tyler-sucrose, Ages 12+ (Pfizer) 04/16/2022 Hepatitis B, 20+ yrs 10/01/2017,04/21/2017,03/20 Pneumococcal Conjugate Vacc, 13 Valent (Prevnar) 03/28/2015 Pneumococcal Conjugate Vacci ne, 20-valent ([id number]) 04/01/2022 Pneumococcal Polysaccharide PPV23 (Pneumovax) 05/21/2006 Seasonal [...] Telephone Encounter - Marcela Pinto MD - 12/31/2022 6:37 AM EDTSigned Prescriptions: Disp Refills Ipratropium-Albuterol 20-100 MCG/ACT Inhal*12 g 1 Sig: TAKE 1 PUFF BY MOUTH 4 TIMES A DAY Authorizing Provider: MARCELA PINTO Sertraline HCl 25 MG Oral Tablet (Zoloft) 90 Tab*1 Sig: TAKE 1 TABLET BY MOUTH EVERY DAY IN THE MORNING Authorizing Provider: MARCELA PINTO methIMAzole 5 MG Oral Tablet (Tapazole) 90 Tab*1 Sig: TAKE 1 TABLET BY MOUTH EVERY DAY IN THE MORNING Authorizing Provider: MARCELA PINTO Dicyclomine HCl 20 MG Oral Tablet (Bentyl) 90 Tab*2 Sig: TAKE 1 TABLET BY MOUTH EVERY DAY Authorizing Provider: MARCELA PINTO Glimepiride 2 MG Oral Tablet (Amaryl) 90 Tab*1 Sig: TAKE 1 TABLET BY MOUTH EVERY DAY WITH BREAKFAST Authorizing Provider: MARCELA PINTO Refused Pre scriptions: Disp Refills methIMAzole 10 MG Oral Tablet (Tapazole) 90 Tab*1 Sig: TAKE 1 TABLET BY MOUTH EVERY DAY Refused By: FRANK WOOTEN Reason for Refusal: Other (comment below) Reason for Refusal Comment: med was d/c * Telephone Encounter - Frank Wooten [facility] - 12/30/2022 4:10 PM EDTPending Prescriptions: Disp Refills Ipratropium-Albuterol 20-100 MCG/ACT Inhal*12 g 1 Sig: TAKE 1 PUFF BY MOUTH 4 TIMES A DAY Sertraline HCl 25 MG Oral Tablet (Zoloft) 90 Tab*1 Sig: TAKE 1 TABLET BY MOUTH EVERY DAY IN THE MORNING methIMAzole 5 MG Oral Tablet (Tapazole) 90 Tab*1 Sig: TAKE 1 TABLET BY MOUTH EVERY DAY IN THE MORNING Dicyclomine HCl 20 MG Oral Tabl et (Bentyl) 90 Tab*2 Sig: TAKE 1 TABLET BY MOUTH EVERY DAY Glimepiride 2 MG Oral Tablet (Amaryl) 90 Tab*1 Sig: TAKE 1 TABLET BY MOUTH EVERY DAY WITH BREAKFAST Refused Prescriptions: Disp Refills methIMAzole 10 MG Oral Tablet (Tapazole) 90 Tab*1 Sig: TAKE 1 TABLET BY MOUTH EVERY DAY Refused By: FRANK WOOTEN Reason for Refusal: Other (comment below) Re ason for Refusal Comment: med was d/c * Telephone Encounter - Frank Wooten RP - 12/30/2022 4:05 PM EDT Last prescribed by [facility] provider (hard copy scripts). Forwarding to PCP for review. Please approve electronic scripts if appropriate. Thank You, Frank Wooten, Pharm-D Clinical Pharmacist [facility] [phone] 12/30/2022, 4:07 PM Did you pend patient's preferred pharmacy and medication before forwarding?yes Pharmacy: [id number] Pending Prescriptions: Disp Refills Ipratropium-Albuterol 20-100 MCG/ACT Inha*12 g 1 Sig: TAKE 1 PUFF BY MOUTH 4 TIMES A DAY Sertraline HCl 25 MG Oral Tablet (Zoloft)*90 Tab*1 Sig: TAKE 1 TABLET BY MOUTH EVERY DAY IN THE MORNING methIMAzole 5 MG Oral Tablet (Tapazole) [*90 Tab*1 Sig: TAKE 1 TABLET BY MOUTH EVERY DAY IN THE MORNING Dicyclomine HCl 20 MG Oral Tablet (Bentyl*90 Tab*2 Sig: TAKE 1 TABLET BY MOUTH EVERY DAY Glimepiride 2 MG Oral Tablet (Amaryl) [Ph*90 Tab*1 Sig: TAKE 1 TABLET BY MOUTH EVERY DAY WITH BREAKFAST Refused Prescriptions: Disp Refills methIMAzole 10 MG Oral Tablet (Tapazole) 90 Tab*1 Sig: TAKE 1 TABLET BY MOUTH EVERY DAY Refused By: FRANK WOOTEN Reason for Refusal: Other (comment below) Reason for Refusal Comment: med was d/c Last Visit: 12/24/2022 (in office), 08/08/2020 (telemedicine) Next Visit: 03/27/2023 If no future appointments scheduled, and last appointment is greater than a year ago, please schedule patient for a follow-up appointment Last date the medication was ordered: 12/11/2022 Is this request for a controlled substance?No [...] Labs: Lab Results Component Value Date/Time CREAT 0.8 12/24/2022 02:47 PM CREAT 0.84 08/19/2022 12:00 AM CREAT 1.0 05/27/2020 04:51 PM POTASSIUM 4.6 12/24/2022 02:47 PM POTASSIUM 3.8 08/19/2022 12:00 AM POTASSIUM 4.0 05/27/2020 04:51 PM TSH 8.88 (H) 12/18/2022 05:41 AM TSH 0.965 12/05/2020 12:00 AM TSH 0.42 07/27/2018 11:32 AM LDLCALC 76 08/07/2021 09:05 AM LDLCALC 106 12/06/2020 05:15 AM LDLCALC 95 07/27/2018 11:32 AM LDLDIRECT 85 12/05/2020 12:00 AM LDLDIRECT 97 07/27/2018 11:32 AM ALT 10 12/24/2022 02:47 PM ALT 15 05/27/2020 04:51 PM HGBA1C 6.2 (H) 11/24/2022 06:57 AM HGBA1C 6.8 12/06/2020 05:15 AM HGBA1C 6.6 (H) 08/26/2019 02:55 PM documented in this encounter Plan of Treatment Upcoming Encounters Date Type Specialty Care Team Description 01/03/2023 Office Visit Cardiology Hammad Lopez, DO [address] [place] [address] 03/27/2023 Office Visit [facility] [address] 04/02/2023 Office Visit Orthopedics Eliezer Gifford DO [address] [place] [address] Health Maintenance Due Date Last Done Comments [...] Additional history exists CKD PHOS USE SMARTSET 29436 08/05/202307/14, 02/19/2022, 03/09/2021, Additional history exists DIABETES-FOOT EXAM 10/10/2023 10/10/2022, 0 11/19/2021, 12/21/2020, Additional history exists Depression Screening, Annual for Pts 12 and Over 10/10/2023 10/10/2022 O2 ASSESSMENT COMPLETED IN PAST YEAR FOR COPD 11/24/2023 11/24/2022 CKD HGB USE SMARTSET 03631 12/25/202312/24, 12/24/2022, 12/18/2022, Additional history exists DXA [...] (HCC) Chronic airway obstruction, not elsewhere classified Major depressive disorder with single episode, in partial remission (HCC) HECTOR (generalized anxiety disorder) Generalized anxiety disorder Hyperthyroidism Thyrotoxicosis without mention of goiter or other cause, without mention of thyrotoxic crisis or storm Chronic constipation Unspecified constipation documented in this encounter Additional Health Concerns [...] Advance Directives occurred with: Patient Care Teams Resource Room Teacher Relationship Specialty Start Date End Date Marcela Pinto MD [address] [place] [address] PCP - General Internal Medicine 08/04/14 documented as of this encounter
--- OUTSIDE RECORDS SUMMARY | 2023-06-18 02:20 | External Medical Summary | Summary of Care ---
Author Name Unknown Organization [facility] Address [address] [place] [address] Phone [phone] Care Team Providers Care Grinder Lap Name Role Phone Marcela Pinto MD Primary Care Provider + Encounter Details Date Type Department Care Team Description 12/24/2022 Winter Sports ManagerDirector Executive Communications Internal Medicine [facility] [address] [place] [address] Joanna Smith, BIJAL Medical home patient encounter* Allergies Active Allergy Reactions Severity Noted Date Comments Valsartan 07/10/2010 Enalapril 05/21/2006 Escitalopram Oxalate Nausea/vomiting 10/11/2009 Nauseated Iodinated Contrast Media Nausea/vomiting 2009 IV Contrast Iodine Hives 12/18/2009 IV Contrast [place] Oil-Black Currant-Vit E 07/10/2010 Verapamil 03/21/2004 Bupropion [...] Respimat 1.25 MCG/ACT Inhalation Aerosol Solution (Tiotropium [place] Monohydrate) Inhale 2 Puffs by mouth in [...] Oral Tablet Extended Release 24 Hour (toPROL XL)Indications: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 [...] 4 TIMES A DAY 12 g 1 12/11/2022 Active Potassium Chloride Annalisa ER 20 [...] Hypoxemia 10/08/2011 10/30/2015 Genetic Sleep Disorder Research Other*[id number] 07/25/2011 05/15/2016 COPD, moderate 07/19/2011 07/28/2019 Overview: [...] mRNA, LNP-s, No Pre serve, 2-Dose Series (Neema) 08/21/2021,12/22/2020,2020 COVID-19, LNP-s, No Preserve , Tyler-sucrose, Ages 12+ (Pfizer) 04/16/2022 Hepatitis B, 20+ yrs 10/01/2017,04/21/2017,03/20 Pneumococcal Conjugate Vacc, 13 Valent (Prevnar) 03/28/2015 Pneumococcal Conjugate Vacci ne, 20-valent ([id number]) 04/01/2022 Pneumococcal Polysaccharide PPV23 (Pneumovax) 05/21/2006 Seasonal [...] Progress Notes * Joanna Smith RN - 12/24/2022 2:23 PM EDT Winter Sports Manager Progress Note: Date: 12/24/22 Current Patient Tier: 2 Pt seen in Office for HERMAN comprehensive Pt identified by name and Assessment: Case Management Assessment Does this patient have COVID-19: NO Is this call for a hospital, half-way or rehab facility discharge to home? Yes [facility] d/c 12/20 Review of Current goals: Connected with patient via office visit. Pt. Noted the following: Pt is doing well since being discharged to home. Pt lives at home alone but her daughter lives next door. Pt uses a wheelchair and walker for ambulation. She is on O2 at 2Lpm during the day and 4lpm at night. She was set up for home health PT and OT on discharge from [facility]. She continues to need dressing changes to abdominal wound BID, which her daughter is performing. Daughter was taught wound care at facility. Pt is scheduled for [facility] home safety visit. Pt and daughter deny any current needs, though it was recommended that pt get a bench for in the shower as shower is attached to a bathtub. She currently only has a shower chair. She does have grab bars available. She is possibly going to pay for the bench out of pocket as it is not covered by medicare. Pt denies any issues with getting meals as her daughter is closeby. She denies any issues with sleeping or pain at this time. She is happy to be back home as she has been admitted since October. Discussed the following patient-centered CM goals with the patient during this discussion: -Pain: Patient will have pain well managed -Status: Completed -GI: Patient will have GI issues addressed -Status: Completed -TREATMENT: Heal and maintain skin integrity -Status: On Track daughter doing wound care. Medication Reconciliation: Medication Reconciliation completed: yes Plan for Future Contacts: Plan to follow up early next week to check progress on the following goals/needs: Home health care. Noting that contacts from the following parties will occur this week: [facility] Boarding House Manager asadditional contacts per workflow. Advancement/Closure Plan: CM Plan : Call CM/PCP for any chest pain, shortness of breath, nausea, vomiting, diarrhea, fever, chills or changes in your health status Safety- use wheelchair/ walker as needed. Use caution with position changes Use handrail for stairs Remove all slip/ trip hazards COPD: Pt instructed to: -Call with increased SOB, wheezing, chest tightness, increased cough, increased sputum with change in color or consistency and fever. -Wash hands often -Drink plenty of fluids -Use inhalers as directed, do not stop or skip doses -Avoid stress -Rest when tired or SOB -Avoid triggers -Clean inhalers once a week Keep patient at current Tier with reassessment per workflow. Patient provided CM contact information and encouraged to call with any changes in condition. SNP Member? No Does this patient qualify for an annual wellness visit? Yes, Sent to [facility] nurse to schedule PCP Notified of enrollment in CM/HM program: Yes Is Provider in agreement with POC? Yes Joanna Smith RN Outpatient Case Management documented in this encounter Plan of Treatment Upcoming Encounters Date Type Specialty Care Team Description 12/30/2022 Home Visit Family Medicine Lacy Grant, [facility] Manager [address] [place] [address] [place] [address] 01/03/2023 Office Visit Cardiology Hammad Lopez, DO [address] [place] [address] 03/27/2023 Office Visit Internal Medicine Marcela Pinto MD [address] [place] [address] 04/02/2023 Office Visit Orthopedics Eliezer Gifford, DO [address] [place] [address] Health Maintenance Due Date Last Done Comments [...] Additional history exists CKD PHOS USE SMARTSET 66111 08/05/202307/14, 02/19/2022, 03/09/2021, Additional history exists DIABETES-FOOT EXAM 10/10/2023 10/10/2022, 0 11/19/2021, 12/21/2020, Additional history exists Depression Screening, Annual for Pts 12 and Over 10/10/2023 10/10/2022 O2 ASSESSMENT COMPLETED IN PAST YEAR FOR COPD 11/24/2023 11/24/2022 CKD HGB USE SMARTSET 38706 12/19/202312/18, 12/18/2022, 12/11/2022, Additional history exists DXA [...] Onset Date Last Indicated Resolved Time ESBL Comment:[facility] 11/1911/19/2022 11/25/2022 documented as of this [...] Advance Directives occurred with: Patient Care Teams Grinder Lap Relationship Specialty Start Date End Date Marcela Pinto MD [address] [place] [address] PCP - General Internal Medicine 08/04/14 documented as of this encounter
--- OUTSIDE RECORDS SUMMARY | 2023-06-18 02:20 | External Medical Summary | Summary of Care ---
Author Name Unknown Organization [facility] Address [address] [place] [address] Phone [phone] Care Team Providers Care Research And Evaluation Analyst Name Role Phone Marcela Pinto MD Primary Care Provider + Reason for Visit * Reason Onset Date Comments Test Results 01/01/2023 Encounter Details Date Type Department Care Team Description 01/01/2023 Telephone General Internal Medicine [facility] [address] [facility] [place] [address] Marcela Pinto MD 200 [place] [address] Test Results Allergies Active Allergy Reactions Severity Noted Date Comments Valsartan 07/10/2010 Enalapril 05/21/2006 Escitalopram Oxalate Nausea/vomiting 10/11/2009 Nauseated Iodinated Contrast Media Nausea/vomiting 2009 IV Contrast Iodine Hives 12/18/2009 IV Contrast [place] Oil-Black Currant-Vit E 07/10/2010 Verapamil 03/21/2004 Bupropion [...] Respimat 1.25 MCG/ACT Inhalation Aerosol Solution (Tiotropium [place] Monohydrate) Inhale 2 Puffs by mouth in [...] Hypoxemia 10/08/2011 10/30/2015 Genetic Sleep Disorder Research Other*[id number] 07/25/2011 05/15/2016 COPD, moderate 07/19/2011 07/28/2019 Overview: [...] mRNA, LNP-s, No Pre serve, 2-Dose Series (ALCOHOOT) 08/21/2021,12/22/2020,2020 COVID-19, LNP-s, No Preserve , Tyler-sucrose, Ages 12+ (Pfizer) 04/16/2022 Hepatitis B, 20+ yrs 10/01/2017,04/21/2017,03/20 Pneumococcal Conjugate Vacc, 13 Valent (Prevnar) 03/28/2015 Pneumococcal Conjugate Vacci ne, 20-valent ([id number]) 04/01/2022 Pneumococcal Polysaccharide PPV23 (Pneumovax) 05/21/2006 Seasonal [...] prednisone a couple weeks ago while at [facility]. Please advise. 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 documented in this encounter Plan of Treatment Upcoming Encounters Date Type Specialty Care Team Description 03/27/2023 Office Visit Internal Medicine Marcela Pinto MD [address] [facility] [place] [address] 04/02/2023 Office Visit Orthopedics Eliezer Gifford, DO [address] [place] [address] 09/18/2023 Office Visit Cardiology Hammad Lopez, DO [address] [place] [address] Scheduled Orders Name Type Priority Associated Diagnoses [...] Additional history exists CKD PHOS USE SMARTSET 40458 08/05/202307/14, 02/19/2022, 03/09/2021, Additional history exists DIABETES-FOOT EXAM 10/10/2023 10/10/2022, 0 11/19/2021, 12/21/2020, Additional history exists Depression Screening, Annual for Pts 12 and Over 10/10/2023 10/10/2022 O2 ASSESSMENT COMPLETED IN PAST YEAR FOR COPD 11/24/2023 11/24/2022 CKD HGB USE SMARTSET 03998 12/25/202312/24, 12/24/2022, 12/18/2022, Additional history exists DXA [...] Advance Directives occurred with: Patient Care Teams Research And Evaluation Analyst Relationship Specialty Start Date End Date Marcela Pinto MD [address] [place] [address] PCP - General Internal Medicine 08/04/14 documented as of this encounter
--- OUTSIDE RECORDS SUMMARY | 2023-06-18 02:20 | External Medical Summary | Summary of Care ---
Author Name Unknown Organization [facility] Address [address] [place] [address] Phone [phone] Care Team Providers Care Medical Management Trainer Name Role Phone Marcela Pinto MD Primary Care Provider + Reason for Visit * Reason Onset Date Comments Medication Refill 12/31/2022 Encounter Details Date Type Department Care Team Description 12/31/2022 Refill General Internal Medicine [facility] [address] [place] [address] Marcela Pinto MD 200 [facility] [place] [address] GENERAL OSTEOARTHROSIS Allergies Active Allergy Reactions Severity Noted Date Comments Valsartan 07/10/2010 Enalapril 05/21/2006 Escitalopram Oxalate Nausea/vomiting 10/11/2009 Nauseated Iodinated Contrast Media Nausea/vomiting 2009 IV Contrast Iodine Hives 12/18/2009 IV Contrast [place] Oil-Black Currant-Vit E 07/10/2010 Verapamil 03/21/2004 Bupropion [...] Respimat 1.25 MCG/ACT Inhalation Aerosol Solution (Tiotropium [place] Monohydrate) Inhale 2 Puffs by mouth in [...] Oral Tablet Extended Release 24 Hour (toPROL XL)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: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 [...] Hypoxemia 10/08/2011 10/30/2015 Genetic Sleep Disorder Research Other*[id number] 07/25/2011 05/15/2016 COPD, moderate 07/19/2011 07/28/2019 Overview: [...] mRNA, LNP-s, No Pre serve, 2-Dose Series (OneAway) 08/21/2021,12/22/2020,2020 COVID-19, LNP-s, No Preserve , Tyler-sucrose, Ages 12+ (Pfizer) 04/16/2022 Hepatitis B, 20+ yrs 10/01/2017,04/21/2017,03/20 Pneumococcal Conjugate Vacc, 13 Valent (Prevnar) 03/28/2015 Pneumococcal Conjugate Vacci ne, 20-valent ([id number]) 04/01/2022 Pneumococcal Polysaccharide PPV23 (Pneumovax) 05/21/2006 Seasonal [...] Encounter - Marcela Pinto MD - 12/31/2022 1:01 PM EDTSigned Prescriptions: Disp Refills HYDROcodone-Acetaminophen 5-325 MG Oral Ta*120 Ta*0 Sig: Take 1 Tablet by mouth every 6 hours as needed for Pain, Mild. Authorizing Provider: MARCELA PINTO * Telephone Encounter - Trinidad Dempsey LPN - 12/31/2022 12:52 PM EDT Pt is calling and is asking for a refill of Hydrocodone. States that while she was in the Hospital, they were giving her Oxycodone but that has been discontinued. Was told when she was in for her OV on 12/24/2022 that the Hydrocodone was going to be called in. Has a few pills left. Med pended. Pharmacy selected. Please advise. documented in this encounter Plan of Treatment Upcoming Encounters Date Type Specialty Care Team Description 01/03/2023 Office Visit Cardiology Hammad Lopez, DO [address] [place] [address] 03/27/2023 Office Visit Internal Medicine [facility]into MD [address] [facility] [address] 04/02/2023 Office Visit Orthopedics Eliezer Gifford, DO [address] [place] [address] Health Maintenance Due Date Last Done Comments [...] Additional history exists CKD PHOS USE SMARTSET 77929 08/05/202307/14, 02/19/2022, 03/09/2021, Additional history exists DIABETES-FOOT EXAM 10/10/2023 10/10/2022, 0 11/19/2021, 12/21/2020, Additional history exists Depression Screening, Annual for Pts 12 and Over 10/10/2023 10/10/2022 O2 ASSESSMENT COMPLETED IN PAST YEAR FOR COPD 11/24/2023 11/24/2022 CKD HGB USE SMARTSET 34171 12/25/202312/24, 12/24/2022, 12/18/2022, Additional history exists DXA [...] Directives occurred with: Patient Care Teams Medical Management Trainer Relationship Specialty Start Date End Date Marcela Pinto MD [address] [place] [address] [place] [address] PCP - General Internal Medicine 08/04/14 documented as of this encounter
--- OUTSIDE RECORDS SUMMARY | 2023-06-18 02:20 | External Medical Summary | Summary of Care ---
Author Name Unknown Organization [facility] Address [address] [place] [address] Phone [phone] Care Team Providers Care Supervisor Fitting Name Role Phone Marcela Pinto MD Primary Care Provider + Reason for Visit * Reason Onset Date Comments Order Request 01/01/2023 Bedside commode Encounter Details Date Type Department Care Team Description 01/01/2023 Telephone General Internal Medicine [facility] [address] [facility] [place] [address] Marcela Pinto MD [address] [place] [address] Order Request (Bedside commode) Allergies Active Allergy Reactions Severity Noted Date Comments Valsartan 07/10/2010 Enalapril 05/21/2006 Escitalopram Oxalate Nausea/vomiting 10/11/2009 Nauseated Iodinated Contrast Media Nausea/vomiting 2009 IV Contrast Iodine Hives 12/18/2009 IV Contrast [place] Oil-Black Currant-Vit E 07/10/2010 Verapamil 03/21/2004 Bupropion [...] Respimat 1.25 MCG/ACT Inhalation Aerosol Solution (Tiotropium [place] Monohydrate) Inhale 2 Puffs by mouth in [...] Oral Tablet Extended Release 24 Hour (toPROL XL)Indications: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 akin heart failure with reduced ejection fraction [...] Hypoxemia 10/08/2011 10/30/2015 Genetic Sleep Disorder Research Other*[id number] 07/25/2011 05/15/2016 COPD, moderate 07/19/2011 07/28/2019 Overview: [...] mRNA, LNP-s, No Pre serve, 2-Dose Series ([employer]) 08/21/2021,12/22/2020,2020 COVID-19, LNP-s, No Preserve , Tyler-sucrose, Ages 12+ (Pfizer) 04/16/2022 Hepatitis B, 20+ yrs 10/01/2017,04/21/2017,03/20 Pneumococcal Conjugate Vacc, 13 Valent (Prevnar) 03/28/2015 Pneumococcal Conjugate Vacci ne, 20-valent ([id number]) 04/01/2022 Pneumococcal Polysaccharide PPV23 (Pneumovax) 05/21/2006 Seasonal [...] encounter Miscellaneous Notes * Telephone Encounter - Bobbi Fitch LPN - 01/02/2023 10:55 AM EDT Order faxed. Confirmation received. * Telephone Encounter - Marcela Pinto MD - 01/02/2023 9:55 AM EDT Signed. Can fax. Thanks. * Telephone Encounter - Bobbi Fitch LPN - 01/01/2023 5:28 PM EDT Order pended, if agreeable. * Telephone Encounter - JORDAN Mohamud - 01/01/2023 12:21 PM EDT An order was requested for this patient. Name of Requesting Provider: Dr Pinto Order Requested: bedside commode Diagnosis/Reason for Request: current weight 206. Needs higher seat to be able to get up from recent bowel surgery \ Does the order need to be faxed somewhere? If so, where?: Yes, to [facility] Fax Number, if applicable: Call Back Number: [phone] If the caller is not a current patient, please advise the patient to call their current PCP to havethe order's prior to being seen in our office. The patient was informed that our providers would not order anything (medication, labs, etc.) prior to being seen. documented in this encounter Plan of Treatment Upcoming Encounters Date Type Specialty Care Team Description 01/03/2023 Office Visit Cardiology Hammad Lopez, DO [address] [place] [address] 03/27/2023 Office Visit Internal Medicine Marcela Pinto MD [address] [facility] [employer] [place] [address] 04/02/2023 Office Visit Orthopedics Eliezer Gifford, DO [address] [place] [address] Health Maintenance Due Date Last Done Comments [...] Additional history exists CKD PHOS USE SMARTSET 30253 08/05/202307/14, 02/19/2022, 03/09/2021, Additional history exists DIABETES-FOOT EXAM 10/10/2023 10/10/2022, 0 11/19/2021, 12/21/2020, Additional history exists Depression Screening, Annual for Pts 12 and Over 10/10/2023 10/10/2022 O2 ASSESSMENT COMPLETED IN PAST YEAR FOR COPD 11/24/2023 11/24/2022 CKD HGB USE SMARTSET 40543 12/25/202312/24, 12/24/2022, 12/18/2022, Additional history exists DXA [...] as of this encounter Visit Diagnoses Diagnosis At high risk for falls- Primary Personal history of fall documented in this encounter Additional Health Concerns Infection Onset Date Last Indicated Resolved Time ESBL Comment:[facility] 11/1911/19/2022 11/25/2022 documented as of this [...] Directives occurred with: Patient Care Teams Supervisor Fitting Relationship Specialty Start Date End Date Marcela Pinto MD [address] [facility] [place] [address] PCP - General Internal Medicine 08/04/14 documented as of this encounter
--- OUTSIDE RECORDS SUMMARY | 2023-06-18 02:21 | External Medical Summary | Summary of Care ---
Author Name Unknown Organization [facility] Address [address] [place] [address] Phone [phone] Care Team Providers Care Aerosol Supervisor Name Role Phone Marcela Pinto MD Primary Care Provider + Reason for Visit * Reason Comments Follow Up Right shoulder Encounter Details Date Type Department Care Team Description 12/23/2022 Office Visit Orthopaedics [facility] [address] [place] [address] Eliezer Gifford, [address] [place] [address] Primary osteoarthritis of right shoulder*; Nontraumatic complete tear of right rotator cuff Allergies Active Allergy Reactions Severity Noted Date Comments Valsartan 07/10/2010 Enalapril 05/21/2006 Escitalopram Oxalate Nausea/vomiting 10/11/2009 Nauseated Iodinated Contrast Media Nausea/vomiting 2009 IV Contrast Iodine Hives 12/18/2009 IV Contrast [place] Oil-Black Currant-Vit E 07/10/2010 Verapamil 03/21/2004 Bupropion Hcl 10/30/2009 Makes pt sick in the stomach documented as of this encounter (statuses as of 12/23/2022) Medications Medication Sig Dispensed Refills Start Date End Date Status oxygen GAS Use 2 L/min(Oxygen) as directed daily. and 4 L/min at night. 0 Active predniSONE 50 MG Oral Tablet (Deltasone)Indicati ons:Colonic diverticular abscess One tablet 13 hours, 7 hours and 1 hour prior to scheduled dye 3 Tablet 0 08/21/2022 Active Promethazine HCl 25 MG Oral Tablet (Phenergan)Indicati ons:Generalized osteoarthritis TAKE 1 TABLET BY MOUTH EVERY 6 HOURS NEEDED FOR NAUSEA 60 Tablet 2 10/18/2022 Active Alum & Mag Hydroxide-Simeth 400-400-40 MG/5ML Oral Suspension (Mi-Acid II) Take 30 mL by mouth every 4 hours as needed for Indigestion. 355 mL 0 11/11/2022 Active oxyCODONE HCl 5 MG Oral Tablet (Oxy IR) Take 1 Tablet by mouth every 4 hours as needed for Other (severe incisional pain). 30 Tablet 0 11/26/2022 Active Acetaminophen 500 MG Oral Tablet (Tylenol) [...] BOTH EYES 10 mL 4 12/11/2022 Active Lumigan 0.01 % Ophthalmic Solution (Bimatoprost) INSTILL [...] Respimat 1.25 MCG/ACT Inhalation Aerosol Solution (Tiotropium [place] Monohydrate) Inhale 2 Puffs by mouth in the morning. 4 g 0 12/11/2022 Active Ventolin HFA 108 (90 Base) MCG/ACT Inhalation Aerosol Solution Inhale 2 Puffs by mouth in the morning and 2 Puffs before bedtime. 18 g 1 12/11/2022 Active Vitamin D3 50 MCG (1999 UT) Oral Capsule Take 1 Capsule by mouth in the morning. 30 Capsule 5 12/11/2022 Active Metoprolol Succinate ER 25 MG Oral Tablet Extended Release 24 Hour (toPROL XL)Indications:Adoption Services Manager akin 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 ([facility]),NICM (nonischemic cardiomyopathy) ([facility]),Presence of Watchman left atrial appendage closure device [...] s:Asthma with severity to be determined,COPD, moderate ([facility]) TAKE 1 PUFF BY MOUTH 4 [...] before bedtime. 18 g 0 12/11/2022 Active Albuterol Sulfate (2.5 MG/3ML) 0.083% Inhalation Nebulization [...] evening meals. 60 Tablet 1 12/16/2022 Active Hospital, Clinic, or Other Facility Administered Medication Ordered Dose Route Frequency Start Date End Date Status lidocaine 1% 1 mL - triamcinolone acetonide 40 mg/mL 1 mL inj 2 mLIndications:Primary osteoarthritis of right shoulder,Nontraumatic complete tear of right rotator cuff 2 mL IJ ONCE 12/23/2022 12/24/2022 Active documented as of this encounter (statuses as of 12/23/2022) Active Problems Problem Noted Date Full code [...] as of this encounter (statuses as of 12/23/2022) Resolved Problems Problem Noted Date Resolved Date [...] Hypoxemia 10/08/2011 10/30/2015 Genetic Sleep Disorder Research Other*[id number] 07/25/2011 05/15/2016 COPD, moderate 07/19/2011 07/28/2019 Overview: [...] as of this encounter (statuses as of 12/23/2022) Immunizations Name Administration Dates Next Due COVID-19 mRNA, LNP-s, No Pre serve, 2-Dose Series ([employer]) 08/21/2021,12/22/2020,2020 COVID-19, LNP-s, No Preserve , Tyler-sucrose, Ages 12+ (Pfizer) 04/16/2022 Hepatitis B, 20+ yrs 10/01/2017,04/21/2017,03/20 Pneumococcal Conjugate Vacc, 13 Valent (Prevnar) 03/28/2015 Pneumococcal Conjugate Vacci ne, 20-valent ([id number]) 04/01/2022 Pneumococcal Polysaccharide PPV23 (Pneumovax) 05/21/2006 Seasonal [...] Progress Notes * Eliezer Gifford, DO - 12/23/2022 1:07 PM EDT Nina Harrington [phone] Nina Harrington is a 81 year old female who presents for f/u to [facility] for right shoulder GH Jt injection Nina Harrington is here unaccompanied Date of Injury: no injury, pain since early 2021 getting worse, more pain at night Sport or Occupation: retired Handedness: right History: seen by me on 09/24/22 and had RIGHT GH jt inj with 50-60% relief Previous Surgery / Subluxation / dislocation: no ROS EXAM: Constitional: No change in weight, No weakness, No fatigue and No fevers, sweats, or chills Past Medical History: Diagnosis Date ACEI/ARB contraindicated Asthma Carpal tunnel syndrome DM type 2, goal: symptom mgmt (HCC) Generalized osteoarthritis HTN, goal below 140/90 Mixed dyslipidemia Current Outpatient Medications Medication Sig Dispense Refill oxygen GAS Use 2 L/min(Oxygen) as directed daily. and 4 L/min at night. predniSONE 50 MG Oral Tablet (Deltasone) One tablet 13 hours, 7 hours and 1 hour prior to scheduled dye 3 Tablet 0 Promethazine HCl 25 MG Oral Tablet (Phenergan) [...] Other (severe incisional pain). 30 Tablet 0 Acetaminophen 500 MG Oral Tablet [...] EVERYDAY INTO BOTH EYES 10 mL 4 Lumigan 0.01 % Ophthalmic [...] Respimat 1.25 MCG/ACT Inhalation Aerosol Solution (Tiotropium [place] Monohydrate) Inhale 2 Puffs by mouth in [...] mouth in the morning. 90 Tablet 2 Ventolin HFA 108 (90 Base) MCG/ACT Inhalation Aerosol Solution Inhale 2 Puffs by mouth in the morning and 2 Puffs before bedtime. 18 g 0 Albuterol Sulfate (2.5 MG/3ML) [...] morning and evening meals. 60 Tablet 1 No current facility-administered medications for this [...] and Station: significantly antalgic, here in wheelchair Assessment and Plan: watch blood glucose, see procedure note f/u 3 months, consider supraclavicualrnerve block next OV Primary osteoarthritis of right shoulder (Primary) - lidocaine 1% 1 mL - triamcinolone acetonide 40 mg/mL 1 mL inj 2 mL - POINT OF CARE US MAJOR JOINT INJECTION, ORTHO Nontraumatic complete tear of right rotator cuff - lidocaine 1% 1 mL - triamcinolone acetonide 40 mg/mL 1 mL inj 2 mL - POINT OF CARE US MAJOR JOINT INJECTION, ORTHO Follow-up: Return in about 3 months (around 03/25/2023). | Check-out note: Wed am with Maria Victoria, possible supraclavicular nerve block Eliezer Gifford, DO Primary Care Sports Medicine Orthopaedics [address] [address] Procedure note (shoulder glenohumoral joint injection) on right: pt moved several times during procedure Time out: Prior to injection, a time [...] 3.5 inch, 22 gauge needle. Injected with lidocaine 1% 1 mL - triamcinolone acetonide [...] documented in this encounter Nursing Notes * LISA Guerra - 12/23/2022 1:07 PM EDT Follow up Patient Follow up: shoulder Side: Right Date of last visit: 09/24/2023 Improvement since last office visit: 0 percent. Prior Treatment: Injection Here for Test Results: No Goals for this appointment: injection documented in this encounter Plan of Treatment Upcoming Encounters Date Type Specialty Care Team Description 12/23/2022 Imaging Radiology Arrived 12/24/2022 Office Visit Internal Medicine Marcela Pinto MD [address] [place] [address] 01/03/2023 Office Visit Cardiology Hammad Lopez DO [address] [place] [address] 01/07/2023 Office Visit Internal Medicine Marcela Pinto MD [address] [facility] [place] [address] 04/02/2023 Office Visit Orthopedics Eliezer Gifford DO [address] [place] [address] Health Maintenance Due Date Last Done Comments [...] Additional history exists CKD PHOS USE SMARTSET 06678 08/05/202307/14, 02/19/2022, 03/09/2021, Additional history exists DIABETES-FOOT EXAM 10/10/2023 10/10/2022, 0 11/19/2021, 12/21/2020, Additional history exists Depression Screening, Annual for Pts 12 and Over 10/10/2023 10/10/2022 O2 ASSESSMENT COMPLETED IN PAST YEAR FOR COPD 11/24/2023 11/24/2022 CKD HGB USE SMARTSET 14291 12/19/202312/18, 12/18/2022, 12/11/2022, Additional history exists DXA [...] Procedure Name Priority Date/Time Associated Diagnosis Comments POINT OF CARE US MAJOR JOINT INJECTION, ORTHO Routine 12/23/2022 12:30 PM EDT Primary osteoarthritis of right shoulder Nontraumatic complete tear of right rotator cuff documented in this encounter Results * POINT OF CARE US MAJOR JOINT INJECTION, ORTHO (12/23/2022 12:30 PM EDT) Anatomical Region Laterality Modality Musculoskeletal Radiographic Gracie ging 12/23/2022 12:3 0 PM EDT Narrative 12/23/2022 1:29 PM EDT [facility] - Ultrasound Program Exam Date: 12/23/2022 Exam Type: Ortho Ice Cream Freezer Helper: Eliezer Gifford Attending: Eliezer Gifford Worksheet: Ortho Injection Exam Information: Impression: Procedure note (shoulder glenohumoral joint injection) on right: pt moved several times during procedure ? Time out: Prior to injection, a time out was called to confirm the administration of appropriate medicine, patient name, procedure and confirm to the best of our ability and knowledge the presence of any necessary risks and benefits. Patient verbalizes understanding. ? Ultrasound utilized to guide injection Ultrasound required due to: patient size (obese) ? Sterile techinique applied. Skin sterilized with betadine and cleaned with alcohol swab. Glenohumoral joint injected using 3.5 inch, 22 gauge needle. Injected with lidocaine 1% 1 mL - triamcinolone acetonide 40 mg/mL 1 mL inj 2 mL Patient tolerated procedure with no significant bleeding or adverse reaction. ? Patient instructed to call or return to clinic for fever or warmth and redness at injection site for potential infection. Patient also advised as to potential for steroid flare reaction including increased pain and redness at injection site which should be treated with ice and resolve within 24 hours. ? Eliezer Gifford DO Physician Signature: I reviewed the images and approve the documentation above.: Signed by Eliezer Gifford on Friday, December 23, 2022 at 1:29:28 PM Procedure Note Eliezer Gifford DO - 12/23/2022 [facility] - Ultrasound Program Exam Date: 12/23/2022 Exam Type: Ortho Ice Cream Freezer Helper: Eliezer Gifford Attending: Eliezer Gifford Worksheet: Ortho Injection Exam Information: Impression: Procedure note (shoulder glenohumoral joint injection) on right: ptmoved several times during procedure ? Time out: Prior to injection, a time out was called to confirm the administration ofappropriate medicine, patient name, procedure and confirm to the best ofour ability and knowledge the presence of any necessary risks andbenefits. Patient verbalizes understanding. ? Ultrasound utilized to guide injection Ultrasound required due to: patient size (obese) ? Sterile techinique applied. Skin sterilized with betadine and cleanedwith alcohol swab. Glenohumoral joint injected using 3.5 inch, 22 gaugeneedle. Injected with lidocaine 1% 1 mL - triamcinolone acetonide 40mg/mL 1 mL inj 2 mL Patient tolerated procedure with no significantbleeding or adverse reaction. ? Patient instructed to call or return to clinic for fever or warmth andredness at injection site for potential infection. Patient also advisedas to potential for steroid flare reaction including increased pain andredness at injection site which should be treated with ice and resolvewithin 24 hours. ? Eliezer Gifford DO Physician Signature: I reviewed the images and approve the documentation above.: Signed byEliezer Gifford on Friday, December 23, 2022 at 1:29:28 PM Eliezer Gifford DO RAD ULTRASOUND documented in this encounter Visit Diagnoses Diagnosis Primary osteoarthritis of right shoulder- Primary Primary localized osteoarthrosis, shoulder region Nontraumatic complete tear of right rotator cuff documented in this encounter Additional Health Concerns Infection Onset Date Last Indicated Resolved Time ESBL Comment:[facility] 11/1911/19/2022 11/25/2022 documented as of [...] Advance Directives occurred with: Patient Care Teams Aerosol Supervisor Relationship Specialty Start Date End Date Marcela Pinto MD [address] [place], [place] [address] [address] PCP - General Internal Medicine 08/04/14 documented as of this encounter"
--- OUTSIDE RECORDS SUMMARY | 2023-06-18 02:21 | External Medical Summary ---
Author Name Unknown Address Unknown Organization K01:[facility] [place] [address] [facility] [address] Laboratory Report Ordering Provider Test Date Status FANG CASSIDY 12/18/2022 05:41:00 Final Observation Date Value Abnormality Reference (Units ) Status Retic, % (auto) 12/18/2022 05:41:00 2.88 Above high normal 0.80-1.90 (%) Final Reticulocytes, Absolute 12/18/2022 05:41:00 83.8 31.3-100.1 (K/uL) Final Reticulocyte fraction, immature 12/18/2022 05:41:00 31.2 Above high normal 2.5-20.6 (%) Final Reticulocyte HGB 12/18/2022 05:41:00 31.1 29.7-37.4 (pg) Final Performing Location [facility] [place] [facility] [address] [facility] [address]
--- OUTSIDE RECORDS SUMMARY | 2023-06-18 02:21 | External Medical Summary ---
Author Name Unknown Address Unknown Organization K01:[facility] [place] [address] [place] [facility] [place] [address] Laboratory Report Ordering Provider Test Date Status FANG CASSIDY 12/18/2022 05:41:00 Final Observation Date Value Abnormality Reference (Units ) Status SYNC LEUKOCYTES IN BLOOD BY AUTOMATED COUNT 12/18/2022 05:41:00 11.09 Above high normal 4.00-10.80 (K/uL) Final Segs 12/18/2022 05:41:00 52.6 40.0-75.0 (%) Final Lymphs % 12/18/2022 05:41:00 33.0 18.0-42.0 (%) Final Monos 12/18/2022 05:41:00 10.2 1.0-11.0 (%) Final Eosinophils 12/18/2022 05:41:00 1.6 0.0-6.0 (%) Final Basos 12/18/2022 05:41:00 0.6 0.0-2.0 (%) Final Immature Granulocyte, Percent 12/18/2022 05:41:00 2.0 0.0-2.0 (%) Final Absolute Segs 12/18/2022 05:41:00 5.83 1.80-7.70 (K/uL) Final Lymphs, absolute 12/18/2022 05:41:00 3.66 1.00-4.80 (K/ul) Final Monos, Abs 12/18/2022 05:41:00 1.13 Above high normal 0.00-1.10 (K/uL) Final Eos, Abs 12/18/2022 05:41:00 0.18 0.00-0.70 (K/uL) Final Basos, Abs 12/18/2022 05:41:00 0.07 0.00-0.20 (K/uL) Final Immature Granulocytes, Number 12/18/2022 05:41:00 0.22 Above high normal 0.00-0.20 (K/uL) Final Performing Location [facility] [place] - [address] [facility] [address]
--- OUTSIDE RECORDS SUMMARY | 2023-06-18 02:21 | External Medical Summary ---
Author Name Unknown Address Unknown Organization K01:[facility] - [address] [facility] [address] Laboratory Report Ordering Provider Test Date Status FANG CASSIDY 12/18/2022 05:41:00 Final Observation Date Value Abnormality Reference (Units ) Status Ferritin 12/18/2022 05:41:00 234 Above high normal 13 -150 (ng/mL) Final Performing Location [facility] [address] [facility] [address]
--- OUTSIDE RECORDS SUMMARY | 2023-06-18 02:21 | External Medical Summary | Summary of Care ---
Author Name Unknown Organization [facility] Address [address] [place] [address] Phone [phone] Care Team Providers Care Electrical And Instrument Technician Name Role Phone Marcela Pinto MD Primary Care Provider + Reason for Visit * Reason Onset Date Comments Correction Visit - Discharge 12/20/2022 Encounter Details Date Type Department Care Team Description 12/20/2022 Correction Visit [address] [address] Mabel Paul PA-C [address] [place] [address] Wound dehiscence*; Diverticulitis of large intestine with abscess without bleeding; UTI due to extended-spectrum beta lactamase (ESBL) producing Escherichia coli; Chronic hypoxemic respiratory failure ([facility]); Mild persistent asthma, unspecified whether complicated; Type 2 diabetes mellitus with hemoglobin A1c goal of less than 7.5% ([facility]); COPD, group B, 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 ([facility]); Chronic systolic heart failure (HCC); Pulmonary HTN ([facility]); Hyperlipidemia with target LDL less than 100; HTN, goal below 140/90; Paroxysmal atrial fibrillation ([facility]); Chronic kidney disease, stage 3a ([facility]); Subclinical hyperthyroidism Allergies Active Allergy Reactions Severity Noted Date Comments Valsartan 07/10/2010 Enalapril 05/21/2006 Escitalopram Oxalate Nausea/vomiting 10/11/2009 Nauseated Iodinated Contrast Media Nausea/vomiting 2009 IV Contrast Iodine Hives 12/18/2009 IV Contrast [place] Oil-Black Currant-Vit E 07/10/2010 Verapamil 03/21/2004 Bupropion Hcl 10/30/2009 Makes pt sick in the stomach documented as of this encounter (statuses as of 12/20/2022) Medications Medication Sig Dispensed Refills Start Date [...] Respimat 1.25 MCG/ACT Inhalation Aerosol Solution (Tiotropium [place] Monohydrate) Inhale 2 Puffs by mouth in [...] Oral Tablet Extended Release 24 Hour (toPROL XL)Indications:Freight Team Associate akin heart failure with reduced ejection fraction [...] severity to be determined,COPD, moderate ([facility]) TAKE 1 PUFF BY MOUTH [...] evening meals. 60 Tablet 1 12/16/2022 Active documented as of this encounter (statuses as of 12/20/2022) Active Problems Problem Noted Date Full code [...] as of this encounter (statuses as of 12/20/2022) Resolved Problems Problem Noted Date Resolved Date [...] Hypoxemia 10/08/2011 10/30/2015 Genetic Sleep Disorder Research Other*[id number] 07/25/2011 05/15/2016 COPD, moderate 07/19/2011 07/28/2019 Overview: [...] as of this encounter (statuses as of 12/20/2022) Immunizations Name Administration Dates Next Due COVID-19 mRNA, LNP-s, No Pre serve, 2-Dose Series ([employer]) 08/21/2021,12/22/2020,2020 COVID-19, LNP-s, No Preserve , Tyler-sucrose, Ages 12+ (Pfizer) 04/16/2022 Hepatitis B, 20+ yrs 10/01/2017,04/21/2017,03/20 Pneumococcal Conjugate Vacc, 13 Valent (Prevnar) 03/28/2015 Pneumococcal Conjugate Vacci ne, 20-valent ([id number]) 04/01/2022 Pneumococcal Polysaccharide PPV23 (Pneumovax) 05/21/2006 Seasonal [...] Date Type Specialty Care Team Description 12/23/2022 Office Visit Orthopedics Eliezer Gifford, [address] [place] [address] 12/24/2022 Office Visit Internal Medicine Marcela Pinto MD [address] [place] [address] 01/03/2023 Office Visit Cardiology Hammad Lopez DO [address] [place] [address] 01/07/2023 Office Visit Internal Medicine Marcela Pinto MD [address] [place] [address] Health Maintenance Due Date Last Done Comments [...] Additional history exists CKD PHOS USE SMARTSET 84739 08/05/202307/14, 02/19/2022, 03/09/2021, Additional history exists DIABETES-FOOT EXAM 10/10/2023 10/10/2022, 0 11/19/2021, 12/21/2020, Additional history exists Depression Screening, Annual for Pts 12 and Over 10/10/2023 10/10/2022 O2 ASSESSMENT COMPLETED IN PAST YEAR FOR COPD 11/24/2023 11/24/2022 CKD HGB USE SMARTSET 26889 12/19/202312/18, 12/18/2022, 12/11/2022, Additional history exists DXA [...] as of this encounter Visit Diagnoses Diagnosis Wound dehiscence- Primary Disruption of external operation (surgical) wound Diverticulitis of large intestine with abscess without bleeding UTI due to extended-spectrum beta lactamase (ESBL) producing Escherichia coli Chronic hypoxemic respiratory failure (HCC) Chronic respiratory failure Mild persistent asthma, unspecified whether complicated Type 2 diabetes mellitus with hemoglobin A1c goal of less than 7.5% (HCC) COPD, group B, 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 (HCC) Chronic systolic heart failure (HCC) Chronic systolic heart failure Pulmonary HTN (HCC) Other chronic pulmonary heart diseases Hyperlipidemia with target LDL less than 100 Other and unspecified hyperlipidemia HTN, goal below 140/90 Unspecified essential hypertension Paroxysmal atrial fibrillation (HCC) Atrial fibrillation Chronic kidney disease, stage 3a (HCC) Subclinical hyperthyroidism Thyrotoxicosis without mention of goiter or other cause, without mention of thyrotoxic crisis or storm documented in this encounter Additional Health Concerns Infection Onset Date Last Indicated Resolved Time ESBL Comment:[facility] 211/19/2022 11/25/2022 documented as of [...] Advance Directives occurred with: Patient Care Teams Electrical And Instrument Technician Relationship Specialty Start Date End Date Marcela Pinto MD [address] [place] [address] PCP - General Internal Medicine 08/04/14 documented as of this encounter
--- OUTSIDE RECORDS SUMMARY | 2023-06-18 02:21 | External Medical Summary | Summary of Care ---
Author Name Unknown Organization [facility] Address [address] [place] [address] Phone [phone] Care Team Providers Care Inserting Press Operator Name Role Phone Marcela Pinto MD Primary Care Provider + Reason for Visit * Reason Onset Date Comments Encounter Created in Error 12/19/2022 Encounter Details Date Type Department Care Team Description 12/19/2022 Detention Visit [address] [address] Mabel Paul PA-C [address] [place] [address] Encounter created in error Allergies Active Allergy Reactions Severity Noted Date Comments Valsartan 07/10/2010 Enalapril 05/21/2006 Escitalopram Oxalate Nausea/vomiting 10/11/2009 Nauseated Iodinated Contrast Media Nausea/vomiting 2009 IV Contrast Iodine Hives 12/18/2009 IV Contrast Jbphh Oil-Black Currant-Vit E 07/10/2010 Verapamil 03/21/2004 Bupropion Hcl 10/30/2009 Makes pt sick in the stomach documented as of this encounter (statuses as of 12/19/2022) Medications Medication Sig Dispensed Refills Start Date [...] Respimat 1.25 MCG/ACT Inhalation Aerosol Solution (Tiotropium [place] Monohydrate) Inhale 2 Puffs by mouth in the morning. 4 g 0 12/11/2022 Active Ventolin HFA 108 (90 Base) MCG/ACT Inhalation Aerosol Solution Inhale 2 Puffs by mouth in the morning and 2 Puffs before bedtime. 18 g 12/11/2022 Active Vitamin D3 50 MCG (1999 UT) Oral Capsule Take 1 Capsule by mouth in the morning. 30 Capsule 5 12/11/2022 Active Metoprolol Succinate ER 25 MG Oral Tablet Extended Release 24 Hour (toPROL XL)Indications:Shoe Cleaner akin 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 ([facility]),NICM (nonischemic cardiomyopathy) ([facility]),Presence of Watchman left atrial appendage closure device [...] as of this encounter (statuses as of 12/19/2022) Active Problems Problem Noted Date Full code [...] as of this encounter (statuses as of 12/19/2022) Resolved Problems Problem Noted Date Resolved Date [...] Hypoxemia 10/08/2011 10/30/2015 Genetic Sleep Disorder Research Other*[id number] 07/25/2011 05/15/2016 COPD, moderate 07/19/2011 07/28/2019 Overview: Dr Solic every 6 months Obesity, morbid (more than [...] as of this encounter (statuses as of 12/19/2022) Immunizations Name Administration Dates Next Due COVID-19 mRNA, LNP-s, No Pre serve, 2-Dose Series ([employer]) 08/21/2021,12/22/2020,2020 COVID-19, LNP-s, No Preserve , Tyler-sucrose, Ages 12+ (Pfizer) 04/16/2022 Hepatitis B, 20+ yrs 10/01/2017,04/21/2017,03/20 Pneumococcal Conjugate Vacc, 13 Valent (Prevnar) 03/28/2015 Pneumococcal Conjugate Vacci ne, 20-valent ([id number]) 04/01/2022 Pneumococcal Polysaccharide PPV23 (Pneumovax) 05/21/2006 Seasonal [...] as of this encounter Progress Notes * Mabel Paul PA-C - 12/19/2022 3:43 PM EST This encounter was created in error. 12/19/2022, 3:43 PM, Mabel Paul PA-C documented in this encounter Plan of Treatment Upcoming Encounters Date Type Specialty Care Team Description 12/20/2022 Detention Visit Family Medicine Mabel Paul PA-C [address] [place] [address] 12/23/2022 Office Visit Orthopedics Eliezer Gifford, DO [address] [place] [address] 12/24/2022 Office Visit Internal Medicine Marcela Pinto MD [address] [place] [address] 01/03/2023 Office Visit Cardiology Hammad Lopez, DO [address] [place] [address] 01/07/2023 Office Visit Internal Medicine Marcela Pinto MD [address] [place] [address] Health Maintenance Due Date Last Done Comments [...] Additional history exists CKD PHOS USE SMARTSET 00176 08/05/202307/14, 02/19/2022, 03/09/2021, Additional history exists DIABETES-FOOT EXAM 10/10/2023 10/10/2022, 0 11/19/2021, 12/21/2020, Additional history exists Depression Screening, Annual for Pts 12 and Over 10/10/2023 10/10/2022 O2 ASSESSMENT COMPLETED IN PAST YEAR FOR COPD 11/24/2023 11/24/2022 CKD HGB USE SMARTSET 81786 12/19/202312/18, 12/18/2022, 12/11/2022, Additional history exists DXA [...] as of this encounter Visit Diagnoses Diagnosis Encounter Created In Error- Primary documented in this encounter Additional Health Concerns Infection Onset Date Last Indicated Resolved Time ESBL Comment:[facility] 11/1911/19/2022 11/25/2022 documented as of [...] Advance Directives occurred with: Patient Care Teams Inserting Press Operator Relationship Specialty Start Date End Date Marcela Pinto MD [address] [facility] [place] [address] PCP - General Internal Medicine 08/04/14 documented as of this encounter
--- OUTSIDE RECORDS SUMMARY | 2023-06-18 02:21 | External Medical Summary ---
Author Name Unknown Address Unknown Organization K01:[facility] [place] [address] [place] [address] Laboratory Report Ordering Provider Test Date Status FANG CASSIDY 12/18/2022 05:41:00 Final Observation Date Value Abnormality Reference (Units ) Status Iron 12/18/2022 05:41:00 51 33-151 (ug/dL) Final Iron-binding capacity 12/18/2022 05:41:00 202 Below low normal 250-425 (ug/dL) Final Transferrin Sat % 12/18/2022 05:41:00 25 15-55 (%) Final Performing Location [facility] - [address] [place] [address]
--- OUTSIDE RECORDS SUMMARY | 2023-06-18 02:21 | External Medical Summary | Summary of Care ---
Author Name Unknown Organization [facility] Address [address] [place] [address] Phone [phone] Care Team Providers Care Street Flusher Driver Name Role Phone Marcela Pinot MD Primary Care Provider + Reason for Visit * Reason Onset Date Comments Skilled Visit 12/18/2022 Encounter Details Date Type Department Care Team Description 12/18/2022 [facility] Visit [address] [address] Mabel Paul PA-C [address] [place] [address] Wound dehiscence*; Chronic systolic heart failure (HCC); Chronic hypoxemic respiratory failure (HCC); Moderate persistent asthma with exacerbation Allergies Active Allergy Reactions Severity Noted Date Comments Valsartan 07/10/2010 Enalapril 05/21/2006 Escitalopram Oxalate Nausea/vomiting 10/11/2009 Nauseated Iodinated Contrast Media Nausea/vomiting 2009 IV Contrast Iodine Hives 12/18/2009 IV Contrast [place] Oil-Black Currant-Vit E 07/10/2010 Verapamil 03/21/2004 Bupropion Hcl 10/30/2009 Makes pt sick in the stomach documented as of this encounter (statuses as of 12/18/2022) Medications Medication Sig Dispensed Refills Start Date End Date Status oxygen GAS Use 2 L/min(Oxygen) as directed daily. and 4 L/min at night. 0 Active predniSONE 50 MG Oral Tablet (Deltasone)Indicati ons:Colonic diverticular abscess One tablet 13 hours, 7 hours and 1 hour prior to scheduled dye 3 Tablet 0 2 Active Promethazine HCl 25 MG Oral Tablet (Phenergan)Indicati ons:Generalized osteoarthritis TAKE 1 TABLET BY MOUTH EVERY 6 HOURS NEEDED FOR NAUSEA 60 Tablet 2 3 Active Alum & Mag Hydroxide-Simeth 400-400-40 MG/5ML Oral Suspension (Mi-Acid II) Take 30 mL by mouth every 4 hours as needed for Indigestion. 355 mL 0 3 Active oxyCODONE HCl 5 MG Oral Tablet (Oxy IR) Take 1 Tablet by mouth every 4 hours as needed for Other (severe incisional pain). 30 Tablet 0 3 Active Acetaminophen 500 MG Oral [...] BOTH EYES 10 mL 4 3 Active Lumigan 0.01 % Ophthalmic Solution (Bimatoprost) [...] Respimat 1.25 MCG/ACT Inhalation Aerosol Solution (Tiotropium [place] Monohydrate) Inhale 2 Puffs by mouth in the morning. 4 g 0 3 Active Ventolin HFA 108 (90 Base) MCG/ACT Inhalation Aerosol Solution Inhale 2 Puffs by mouth in the morning and 2 Puffs before bedtime. 18 g 1 3 Active Vitamin D3 50 MCG (1999 UT) Oral Capsule Take 1 Capsule by mouth in the morning. 30 Capsule 5 3 Active Metoprolol Succinate ER 25 MG Oral Tablet Extended Release 24 Hour (toPROL XL)Indications:Health Outreach Worker akin 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),NICM (nonischemic cardiomyopathy) ([facility]),Presence of Watchman left atrial appendage closure device TAKE 1/2 TABLET BY MOUTH EVERY DAY 45 Tablet 3 3 Active methIMAzole 5 MG Oral Tablet (Tapazole) Take 1 Tablet by mouth in the morning. 90 Tablet 1 3 Active Atorvastatin Calcium 40 MG [...] Friday only. 45 Tablet 3 3 Active Ipratropium-Albuter ol 20-100 MCG/ACT Inhalation Aerosol Solution (Combivent Respimat)Indication s:Asthma with severity to be determined,COPD, moderate ([facility]) TAKE 1 PUFF BY MOUTH 4 TIMES A DAY 12 g 1 3 Active Potassium Chloride Annalisa ER 20 MEQ Oral Tablet Extended Release (Klor-Con M20)Indications:HTN , goal below 140/90 Take 1 Tablet by mouth in the morning. 90 Tablet 3 3 Active Glimepiride 2 MG Oral Tablet (Amaryl) TAKE 1 TABLET BY MOUTH EVERY DAY WITH BREAKFAST 90 Tablet 1 3 Active Ondansetron 8 MG Oral Tablet Disintegrating (Zofran) DISSOLVE 1 TABLET ON TONGUE EVERY 8 HOURS NEEDED FOR NAUSEA 60 Tablet 5 3 Active Sertraline HCl 25 MG Oral Tablet (Zoloft)Indications :Major depressive disorder with single episode, in partial remission (HCC),HECTOR (generalized anxiety disorder) TAKE 1 TABLET BY MOUTH EVERY DAY IN THE MORNING 90 Tablet 1 3 Active Zafirlukast 20 MG Oral Tablet (Accolate)Indicatio ns:Asthma with severity to be determined Take 1 Tablet by mouth in the morning. 90 Tablet 3 3 Active Dicyclomine HCl 20 MG Oral Tablet (Bentyl)Indications :Chronic constipation Take 1 Tablet by mouth in the morning. 90 Tablet 2 3 Active Ventolin HFA 108 (90 Base) MCG/ACT Inhalation Aerosol Solution Inhale 2 Puffs by mouth in the morning and 2 Puffs before bedtime. 18 g 0 3 Active Albuterol Sulfate (2.5 MG/3ML) 0.083% Inhalation [...] evening meals. 60 Tablet 1 3 Active Sucralfate 1 GM Oral Tablet (Carafate) Take 1 Tablet by mouth 4 times a day before meals and at bedtime. 120 Tablet 0 3 12/19/19 23 Discontinu ed(Medicat ion List Clean Up) documented as of this encounter (statuses as of 12/18/2022) Active Problems Problem Noted Date Full code [...] as of this encounter (statuses as of 12/18/2022) Resolved Problems Problem Noted Date Resolved Date [...] Hypoxemia 10/08/2011 10/30/2015 Genetic Sleep Disorder Research Other*[id number] 07/25/2011 05/15/2016 COPD, moderate 07/19/2011 07/28/2019 Overview: [...] as of this encounter (statuses as of 12/18/2022) Immunizations Name Administration Dates Next Due COVID-19 mRNA, LNP-s, No Pre serve, 2-Dose Series ([employer]) 08/21/2021,12/22/2020,2020 COVID-19, LNP-s, No Preserve , Tyler-sucrose, Ages 12+ (Pfizer) 04/16/2022 Hepatitis B, 20+ yrs 10/01/2017,04/21/2017,03/20 Pneumococcal Conjugate Vacc, 13 Valent (Prevnar) 03/28/2015 Pneumococcal Conjugate Vacci ne, 20-valent ([id number]) 04/01/2022 Pneumococcal Polysaccharide PPV23 (Pneumovax) 05/21/2006 Seasonal [...] Description 12/23/2022 Office Visit Orthopedics Eliezer Gifford, DO [address] [place] [address] 01/03/2023 Office Visit Cardiology Hammad Lopez, DO [address] [place] [address] 01/07/2023 Office Visit Internal Medicine Marcela Pinto MD [address] [facility], [place] [address] Health Maintenance Due Date Last Done Comments [...] Additional history exists CKD PHOS USE SMARTSET 62916 08/05/202307/14, 02/19/2022, 03/09/2021, Additional history exists DIABETES-FOOT EXAM 10/10/2023 10/10/2022, 0 11/19/2021, 12/21/2020, Additional history exists Depression Screening, Annual for Pts 12 and Over 10/10/2023 10/10/2022 O2 ASSESSMENT COMPLETED IN PAST YEAR FOR COPD 11/24/2023 11/24/2022 CKD HGB USE SMARTSET 82372 12/19/202312/18, 12/11/2022, 12/06/2022, Additional history exists DXA Scan 08/08/2025 08/08/2020, [...] Primary Disruption of external operation (surgical) wound Chronic systolic heart failure (HCC) Chronic systolic heart failure Chronic hypoxemic respiratory failure (HCC) Chronic respiratory failure Moderate persistent asthma with exacerbation Unspecified asthma, with exacerbation documented in this encounter Additional Health Concerns Infection Onset Date Last Indicated Resolved Time ESBL Comment:[facility] 11/1911/19/2022 11/25/2022 documented as of this [...] Advance Directives occurred with: Patient Care Teams Street Flusher Driver Relationship Specialty Start Date End Date Marcela Pinto MD [address] [facility] [place] [address] PCP - General Internal Medicine 08/04/14 documented as of this encounter
--- OUTSIDE RECORDS SUMMARY | 2023-06-18 02:21 | External Medical Summary | Summary of Care ---
Author Name Unknown Organization [facility] Address [address] [place] [address] Phone [phone] Care Team Providers Care Weight Control Lecturer Name Role Phone Marcela Pinto MD Primary Care Provider + Reason for Visit * Reason Comments Follow Up Right shoulder Encounter Details Date Type Department Care Team Description 12/23/2022 Office Visit Orthopaedics [facility] [address] [place] [address] Eliezer Gifford, [address] [place] [address] Primary osteoarthritis of right shoulder*; Nontraumatic complete tear of right rotator cuff Allergies Active Allergy Reactions Severity Noted Date Comments Valsartan 07/10/2010 Enalapril 05/21/2006 Escitalopram Oxalate Nausea/vomiting 10/11/2009 Nauseated Iodinated Contrast Media Nausea/vomiting 2009 IV Contrast Iodine Hives 12/18/2009 IV Contrast [place] Oil-Black Currant-Vit E 07/10/2010 Verapamil 03/21/2004 Bupropion [...] Respimat 1.25 MCG/ACT Inhalation Aerosol Solution (Tiotropium [place] Monohydrate) Inhale 2 Puffs by mouth in [...] Oral Tablet Extended Release 24 Hour (toPROL XL)Indications:Melter Operator akin 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 ([facility]),NICM (nonischemic cardiomyopathy) ([facility]),Presence of Watchman left atrial appendage closure device [...] with severity to be determined,COPD, moderate ([facility]) TAKE 1 PUFF BY MOUTH 4 TIMES [...] rotator cuff 2 mL IJ ONCE 12/23/2022 12/23/2022 Ended documented as of this encounter (statuses [...] Hypoxemia 10/08/2011 10/30/2015 Genetic Sleep Disorder Research Other*[id number] 07/25/2011 05/15/2016 COPD, moderate 07/19/2011 07/28/2019 Overview: [...] mRNA, LNP-s, No Pre serve, 2-Dose Series ([employer]) 08/21/2021,12/22/2020,2020 COVID-19, LNP-s, No Preserve , Tyler-sucrose, Ages 12+ (Pfizer) 04/16/2022 Hepatitis B, 20+ yrs 10/01/2017,04/21/2017,03/20 Pneumococcal Conjugate Vacc, 13 Valent (Prevnar) 03/28/2015 Pneumococcal Conjugate Vacci ne, 20-valent ([id number]) 04/01/2022 Pneumococcal Polysaccharide PPV23 (Pneumovax) 05/21/2006 Seasonal [...] - 12/23/2022 1:07 PM EDT Nina Harrington [phone] Nina Harrington is a 81 year old female who presents for f/u to [facility] for right shoulder GH Jt [...] Respimat 1.25 MCG/ACT Inhalation Aerosol Solution (Tiotropium [place] Monohydrate) Inhale 2 Puffs by mouth in [...] Gifford, DO Primary Care Sports Medicine Orthopaedics [address] [address] Procedure note (shoulder glenohumoral joint injection) on [...] Encounters Date Type Specialty Care Team Description 12/24/2022 [facility] Visit [facility] [address] 01/[facility]/2023 Office Visit Cardiology Hammad Lopez DO [address] [place] [address] 01/07/2023 Office Visit Internal Medicine Marcela Pinto MD [address] [facility] [place] [address] 04/02/2023 Office Visit Orthopedics Eliezer Gifford DO [address] [place] [address] Health Maintenance Due Date Last Done Comments [...] Additional history exists CKD PHOS USE SMARTSET 39097 08/05/202307/14, 02/19/2022, 03/09/2021, Additional history exists DIABETES-FOOT EXAM 10/10/2023 10/10/2022, 0 11/19/2021, 12/21/2020, Additional history exists Depression Screening, Annual for Pts 12 and Over 10/10/2023 10/10/2022 O2 ASSESSMENT COMPLETED IN PAST YEAR FOR COPD 11/24/2023 11/24/2022 CKD HGB USE SMARTSET 03253 12/19/202312/18, 12/18/2022, 12/11/2022, Additional history exists DXA [...] PM EDT Narrative 12/23/2022 1:29 PM EDT [email or web address] - Ultrasound Program Exam Date: 12/23/2022 Exam Type: Ortho Showroom Sales Consultant: Eliezer Gifford Attending: Eliezer Giffrod Worksheet: Ortho Injection Exam Information: Impression: Procedure [...] Procedure Note Eliezer Gifford DO - 12/23/2022 [facility] - Ultrasound Program Exam Date: 12/23/2022 Exam Type: Ortho Showroom Sales Consultant: Eliezer Gifford Attending: Eliezer Gifford Worksheet: Ortho [...] 2 mL 2 mL, Injection, ONCE, On Fri12/23/22 at 1345, For 1 dose, Lidocaine 1% 1mL Triamcinolone Acetonide 40 mg/mL 1 mL (Final concentration = 20 mg/mL) REFRIGERATE and SHAKE WELL Given 12/23/2022 2:09 PM EDT 2 mL Shoulder Right documented in this encounter Additional Health Concerns Infection Onset Date Last Indicated Resolved Time ESBL Comment:[facility] 2/11/19/2022 11/25/2022 documented as of this encounter Advance [...] Directives occurred with: Patient Care Teams Weight Control Lecturer Relationship Specialty Start Date End Date Marcela Pinto MD [address] [place] [address], [place] [address] PCP - General Internal Medicine 08/04/14 documented as of this encounter"
--- OUTSIDE RECORDS SUMMARY | 2023-06-18 02:21 | External Medical Summary | Summary of Care ---
Author Name Unknown Organization [facility] Address [address] [place] [address] Phone [phone] Care Team Providers Care Front Sight Attacher Name Role Phone Marcela Pinto MD Primary Care Provider + Encounter Details Date Type Department Care Team Description 12/18/2022 Abstract [facility] [address] [place], [place] [id number] Mabel Paul PA-Edmund [address] [place] [address] Allergies Active Allergy Reactions Severity Noted Date Comments Valsartan 07/10/2010 Enalapril 05/21/2006 Escitalopram Oxalate Nausea/vomiting 10/11/2009 Nauseated Iodinated Contrast Media Nausea/vomiting 2009 IV Contrast Iodine Hives 12/18/2009 IV Contrast [place] Oil-Black Currant-Vit E 07/10/2010 Verapamil 03/21/2004 Bupropion [...] Respimat 1.25 MCG/ACT Inhalation Aerosol Solution (Tiotropium [place] Monohydrate) Inhale 2 Puffs by mouth in [...] Oral Tablet Extended Release 24 Hour (toPROL XL)Indications:Powerhouse Tender akin 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),NICM (nonischemic cardiomyopathy) ([facility]),Presence of Watchman left atrial appendage [...] TIMES A DAY 12 g 3 Active Potassium Chloride Annalisa ER 20 [...] Hypoxemia 10/08/2011 10/30/2015 Genetic Sleep Disorder Research Other*[id number] 07/25/2011 05/15/2016 COPD, moderate 07/19/2011 07/28/2019 Overview: [...] mRNA, LNP-s, No Pre serve, 2-Dose Series ([employer]) 08/21/2021,12/22/2020,2020 COVID-19, LNP-s, No Preserve , Tyler-sucrose, Ages 12+ (Pfizer) 04/16/2022 Hepatitis B, 20+ yrs 10/01/2017,04/21/2017,03/20 Pneumococcal Conjugate Vacc, 13 Valent (Prevnar) 03/28/2015 Pneumococcal Conjugate Vacci ne, 20-valent ([id number]) 04/01/2022 Pneumococcal Polysaccharide PPV23 (Pneumovax) 05/21/2006 Seasonal [...] Gifford, DO [address] [place] [address] 01/03/2023 Office Visit Cardiology Hammad Lopez, [address] [place] [address] 01/07/2023 Office Visit Internal Medicine Marcela Pinto MD [address] [facility] [place] [address] Health Maintenance Due Date Last Done Comments [...] Additional history exists CKD PHOS USE SMARTSET 99027 08/05/202307/14, 02/19/2022, 03/09/2021, Additional history exists DIABETES-FOOT EXAM 10/10/2023 10/10/2022, 0 11/19/2021, 12/21/2020, Additional history exists Depression Screening, Annual for Pts 12 and Over 10/10/2023 10/10/2022 O2 ASSESSMENT COMPLETED IN PAST YEAR FOR COPD 11/24/2023 11/24/2022 CKD HGB USE SMARTSET 99803 12/19/202312/18, 12/11/2022, 12/06/2022, Additional history exists DXA [...] Date Last Indicated Resolved Time ESBL Comment:[facility] 2/7 11/19/2022 11/25/2022 documented as of this encounter Advance [...] Advance Directives occurred with: Patient Care Teams Front Sight Attacher Relationship Specialty Start Date End Date Marcela Pinto MD [address] [facility] [place], [place] [address] PCP - General Internal Medicine 08/04/14 documented as of this encounter
--- OUTSIDE RECORDS SUMMARY | 2023-06-18 02:21 | External Medical Summary ---
Author Name Unknown Address Unknown Organization K09:[facility] [place] [address] Laboratory Report Ordering Provider Test Date Status JOSE A JOHNSON 12/24/2022 14:47:13 Final Observation Date Value Abnormality Reference (Units ) Status BUN 12/24/2022 14:47:13 24 Above high normal 6-20 (mg/dL) Final Creatinine 12/24/2022 14:47:13 0.8 0.5-1.0 (mg/dL) Final Glomerular filtration rate/1.73 sq M.predicted [Volume Rate/Area] in Serum, Plasma or Blood by Creatinine-based formula (CKD-EPI) 12/24/2022 14:47:13 76 >=60 (mL/min) Final Performing Location [facility] [place] [address]
--- OUTSIDE RECORDS SUMMARY | 2023-06-18 02:21 | External Medical Summary ---
Author Name Unknown Address Unknown Organization K01:[facility] [place] [address] [place] [address] Laboratory Report Ordering Provider Test Date Status FANG CASSIDY 12/18/2022 05:41:00 Final Observation Date Value Abnormality Reference (Units ) Status WBC, Total 12/18/2022 05:41:00 11.09 Above high normal 4 .00-10.80 (K/uL) Final RBC 12/18/2022 05:41:00 2.90 3.85-5.15 (M/uL) Final Hemoglobin 12/18/2022 05:41:00 8.3 Below low normal 12 .0-15.3 (g/dL) Final Performing Location [facility] [place] [address] [place] [address]
--- OUTSIDE RECORDS SUMMARY | 2023-06-18 02:22 | External Medical Summary | Summary of Care ---
Author Name Unknown Organization [facility] Address [address] [place] [address] Phone [phone] Care Team Providers Care Insurance Account Executive Name Role Phone Marcela Pinto MD Primary Care Provider + Reason for Visit * Reason Comments Follow Up Platinum removed Encounter Details Date Type Department Care Team Description 12/17/2022 Office Visit General Surgery, [place] [address] [place] [address] Teresita Padron PA-Edmund [address] [place] [address] Post-operative state* Allergies Active Allergy Reactions Severity Noted Date Comments Valsartan 07/10/2010 Enalapril 05/21/2006 Escitalopram Oxalate Nausea/vomiting 10/11/2009 Nauseated Iodinated Contrast Media Nausea/vomiting 2009 IV Contrast Iodine Hives 12/18/2009 IV Contrast [place] Oil-Black Currant-Vit E 07/10/2010 Verapamil 03/21/2004 Bupropion Hcl 10/30/2009 Makes pt sick in the stomach documented as of this encounter (statuses as of 12/17/2022) Medications Medication Sig Dispensed Refills Start Date [...] Respimat 1.25 MCG/ACT Inhalation Aerosol Solution (Tiotropium [place] Monohydrate) Inhale 2 Puffs by mouth in the morning. 4 g 0 12/11/2022 Active Ventolin HFA 108 (90 Base) MCG/ACT Inhalation Aerosol Solution Inhale 2 Puffs by mouth in the morning and 2 Puffs before bedtime. 18 g 1 12/11/2022 Active Vitamin D3 50 MCG (1999 UT) Oral Capsule Take 1 Capsule by mouth in the morning. 30 Capsule 5 12/11/2022 Active Sucralfate 1 GM Oral Tablet (Carafate) Take 1 Tablet by mouth 4 times a day before meals and at bedtime. 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 ([facility]),NICM (nonischemic cardiomyopathy) ([facility]),Presence of Watchman left atrial appendage closure [...] s:Asthma with severity to be determined,COPD, moderate ([facility]) TAKE 1 PUFF BY MOUTH 4 [...] as of this encounter (statuses as of 12/17/2022) Active Problems Problem Noted Date Full code [...] as of this encounter (statuses as of 12/17/2022) Resolved Problems Problem Noted Date Resolved Date [...] Hypoxemia 10/08/2011 10/30/2015 Genetic Sleep Disorder Research Other*[id number] 07/25/2011 05/15/2016 COPD, moderate 07/19/2011 07/28/2019 Overview: [...] as of this encounter (statuses as of 12/17/2022) Immunizations Name Administration Dates Next Due COVID-19 mRNA, LNP-s, No Pre serve, 2-Dose Series (C[employer]) 08/21/2021,12/22/2020,2020 COVID-19, LNP-s, No Preserve , Tyler-sucrose, Ages 12+ (Pfizer) 04/16/2022 Hepatitis B, 20+ yrs 10/01/2017,04/21/2017,03/20 Pneumococcal Conjugate Vacc, 13 Valent (Prevnar) 03/28/2015 Pneumococcal Conjugate Vacci ne, 20-valent ([id number]) 04/01/2022 Pneumococcal Polysaccharide PPV23 (Pneumovax) 05/21/2006 Seasonal [...] Sign Reading Time Taken Comments Blood Pressure 134/79 12/17/2022 10:14 AM EST Pulse 80 12/17/2022 10:14 AM EST Temperature 36.7 C (98 F) 12/17/2022 10: 14 AM EST Respiratory Rate - - Oxygen Saturation 99% 12/17/2022 10: 14 AM EST Inhaled Oxygen Concentration - - Weight 95.2 kg (209 lb 14.4 oz) 023 10:14 AM EST Height 165.1 cm (5' 5") 12/17/2022 10:1 4 AM EST Body Mass Index 34.93 12/17/2022 10:14 AM EST documented in this [...] as of this encounter Progress Notes * Teresita Padron PA-C - 12/17/2022 4:26 PM EST Post-op Follow Up Nina Harrington, a 82 year old female is s/p Hand-assist laparoscopic low anterior resection on 11/01/22 for diverticulitis and colovesical fistula. Pt developed COVID post op and due to severe coughingdeveloped fascial dehiscence and underwent Exploratory laparotomy, abdominal fascial closure on 11/24/22. Pt presents with her daughters. She is recovering in NH. Doing well. Tolerating diet. Having regular bowel function. Denies abdominal pain. Incision is nearly healed. Path report: A. Colon, sigmoid and upper rectum, resection: Diverticulitis in a colonic tissue wall with Diverticular disease. Extensive serosal fibrous adhesions Resection margins are viable and uninvolved. One (1) benign lymph node identified. B. Anastomotic rings, resection: Anastomotic ring showing focal active colitis and submucosal abscess. Constitutional ROS: No fevers, sweats, or chills Gastrointestional ROS: No nausea, vomiting, diarrhea, or constipation Exam: BP 134/79 | Pulse 80 | Temp 36.7 C (98 F) | Ht 1.651 m (5' 5") | Wt 95.2 kg (209 lb 14.4 oz) | SpO2 99% | BMI 34.93 kg/m | BSA 2.09 m GENERAL: alert, healthy and no distress ABDOMEN: abdomen soft, non-tender and normal bowel sounds INCISION: lower midline incision healing well, almost completely healed, one remaining staple in place, staple removed Impression & Plan: Doing well s/p lap LAR for colovesical fistula followed by ex lap fascial closure -Path discussed with patient. -Staple removed. -Cover incision with dry gauze dressing until completely healed. FOLLOW UP as needed Teresita Padron PA-C documented in this encounter Plan of Treatment Upcoming Encounters Date Type Specialty Care Team Description 12/23/2022 Office Visit Orthopedics Eliezer Gifford, DO [address] [place] [address] 01/03/2023 Office Visit Cardiology Hammad Lopez, DO [address] [place] [address] 01/07/2023 Office Visit Internal Medicine Marcela Pinto MD [address] [place], [place] [address] [address] Health Maintenance Due Date Last Done Comments Alpha-1 Antitrypsin 1956 Zoster Vaccines (3 of 3) 05/27/2022 04/01/2022, 09/2 01/2012 COVID-19 Vaccine (5 - Booster for Pfizer series) 06/11/2022 04/16/2022, 08/21/2021, 12/22/2020, Additional history exists Albumin/Creatinine Ratio 02/19/2023 022, 07/09/2019, 07/27/2018, Additional history exists DIABETES-EYE EXAM 03/08/2023 03/08/2022, , 08/07/2020, Additional history exists HgA1C 05/24/2023 11/24/2022, 05/14, 02/19/2022, Additional history exists GFR - Renal Function 06/13/2023 12/11/2022, 12/06/2022, 12/02/2022, Additional history exists CKD PHOS USE SMARTSET 42202 08/05/202307/14, 02/19/2022, 03/09/2021, Additional history exists DIABETES-FOOT EXAM 10/10/2023 10/10/2022, 0 11/19/2021, 12/21/2020, Additional history exists Depression Screening, Annual for Pts 12 and Over 10/10/2023 10/10/2022 O2 ASSESSMENT COMPLETED IN PAST YEAR FOR COPD 11/24/2023 11/24/2022 CKD HGB USE SMARTSET 68934 12/12/202312/11, 12/06/2022, 12/02/2022, Additional history exists DXA Scan 08/08/2025 08/08/2020, [...] as of this encounter Visit Diagnoses Diagnosis Post-operative state- Primary Other postprocedural status documented in this encounter Additional Health Concerns Infection Onset Date Last Indicated Resolved Time ESBL Comment:[facility] 11/1911/19/2022 11/25/2022 documented as of [...] Advance Directives occurred with: Patient Care Teams Insurance Account Executive Relationship Specialty Start Date End Date Marcela Pinto MD [address] [place] [address] PCP - General Internal Medicine 08/04/14 documented as of this encounter
--- OUTSIDE RECORDS SUMMARY | 2023-06-18 02:22 | External Medical Summary ---
Author Name Unknown Address Unknown Organization [facility] [address] [place] [address] Laboratory Report Ordering Provider Test Date Status FANG CASSIDY 12/13/2022 05:55:00 Final Observation Date Value Abnormality Reference (Units ) Status Potassium 12/13/2022 05:55:00 3.8 3.5-5.1 (m mol/L) Final Per[facility] Location [facility] - [address] [place] [address]
--- OUTSIDE RECORDS SUMMARY | 2023-06-18 02:22 | External Medical Summary | Continuity Of Care Document ---
Author Name Unknown Address [address] [place] [address] Organization [facility]) Care Team Providers Care Laborer Tree Tapping Name Role Phone Michelle Gallegos Primary Care Provider +[phone] Problems Code Description Start Date End Date Status U07.1 COVID-12/06/2022 Active J96.01 Acute respiratory failure with hypoxia 11/29/19 Active J44.9 Chronic obstructive pulmonary disease, unspecified 11/29/2022 Active E16.2 Hypoglycemia, unspecified 11/29/2022 Active B96.20 Unspecified Escheric hia coli [E. 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 11/29/2022 Acti ve T81.31XA Disruption of labeling strategist al operation (surgical) wound, not elsewhere classified, initial encounter 11/29/2022 Active 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 11/29/2022 Active U07.1 COVID-19 11/29/2022 Active VITAL SIGNS Date Time Diastolic blood pressure Systolic blood pressure Body height Body weight Temperature SpO2 Blood Sugar Pulse Respirations 53697 217 00607 6 81.00 mm[Hg] - Sitting 145.00 mm[Hg] - Sitting 97.90 Ear 88.00/ min 18.00/min 03581 217 99113 3 212.00 NI 47857 217 87145 7 65 NI 05655 218 54013 8 61015 218 43040 5 84.00 mm[Hg] - Sitting 154.00 mm[Hg] - Sitting 97.70 X-Other 92.00/ min 218 37029 0 84.00 mm[Hg] - Lying Down 154.00 mm[Hg] - Lying Down 97.70 Ear 92.00/ min 18.00/min 89001 218 21926 4 97.70 Oral 45275 218 84615 1 84.00 mm[Hg] - Sitting 154.00 mm[Hg] - Sitting 18.00/min 218 31365 5 53.00 mm[Hg] - Sitting 95.00 mm[Hg] - Sitting 97.20 X-Other 93.00 % 75.00/ min 218 06040 0 03244 219 74774 1 78.00 mm[Hg] - Lying Down 137.00 mm[Hg] - Lying Down 96.10 Oral 96.00 % 65.00/ min 69650 219 27555 9 78.00 mm[Hg] - Sitting 137.00 mm[Hg] - Sitting 96.10 Ear 65.00/ min 18.00/min 84805 219 94617 0 78.00 mm[Hg] - Sitting 137.00 mm[Hg] - Sitting 95.70 Axillary 65.00/ min 18.00/min 86515 220 72212 0 82904 220 99155 0 61.00 mm[Hg] - Sitting 90.00 mm[Hg] - Sitting 95.40 Oral 99.00 % 75.00/ min 86821 220 70948 3 215.00 NI 87013 220 91197 5 69.00 mm[Hg] - Sitting 107.00 mm[Hg] - Sitting 96.80 Oral 96.00 % 100.00 /min 34404 221 47514 3 68.00 mm[Hg] - Sitting 102.00 mm[Hg] - Sitting 97.60 X-Other 97.00 % 82.00/ min 39316 222 43543 7 81.00 mm[Hg] - Sitting 144.00 mm[Hg] - Sitting 96.10 Oral 94.00 % 74.00/ min 78217 222 43769 3 62.00 mm[Hg] - Sitting 93.00 mm[Hg] - Sitting 96.00 X-Other 98.00 % 98.00/ min 35435 223 06075 0 73.00 mm[Hg] - Sitting 114.00 mm[Hg] - Sitting 97.50 Ear 99.00 % 76.00/ min 34087 223 73439 6 74.00 mm[Hg] - Sitting 111.00 mm[Hg] - Sitting 97.60 Oral 98.00 % 102.00 /min 69691 224 07497 4 216.00 NI 65096 224 22738 0 79.00 mm[Hg] - Sitting 117.00 mm[Hg] - Sitting 97.60 Ear 95.00 % 96.00/ min 13250 224 52103 9 214.00 NI 95382 224 62646 0 79.00 mm[Hg] - Sitting 116.00 mm[Hg] - Sitting 97.80 Oral 100.0 0% 98.00/ min 35421 225 31978 1 63.00 mm[Hg] - Sitting 116.00 mm[Hg] - Sitting 96.30 X-Other 99.00 % 84.00/ min 35916 225 46705 3 67.00 mm[Hg] - Sitting 102.00 mm[Hg] - Sitting 98.70 Ear 99.00 % 94.00/ min 73781 226 56116 0 62.00 mm[Hg] - Sitting 92.00 mm[Hg] - Sitting 97.00 Ear 97.00 % 84.00/ min 07955 226 17490 2 207.00 NI 64972 227 64901 5 52.00 mm[Hg] - Sitting 79.00 mm[Hg] - Sitting 96.30 Oral 94.00 % 64.00/ min 06258 227 40634 0 57.00 mm[Hg] - Sitting 99.00 mm[Hg] - Sitting 97.30 Oral 96.00 % 95.00/ min 91119 227 79591 4 74.00 mm[Hg] - Sitting 115.00 mm[Hg] - Sitting 97.00 Oral 100.0 0% 102.00 /min 03356 228 62674 7 78.00 mm[Hg] - Sitting 113.00 mm[Hg] - Sitting 96.40 Oral 99.00 % 97.00/ min 95975 301 80726 8 65.00 mm[Hg] - Sitting 100.00 mm[Hg] - Sitting 97.20 Oral 99.00 % 96.00/ min 29217 301 98140 3 64.00 mm[Hg] - Sitting 99.00 mm[Hg] - Sitting 97.20 Oral 99.00 % 71.00/ min 63863 301 62348 6 75.00 mm[Hg] - Sitting 110.00 mm[Hg] - Sitting 97.90 Oral 98.00 % 89.00/ min 84954 301 37593 9 75.00 mm[Hg] - Sitting 110.00 mm[Hg] - Sitting 97.90 Ear 98.00 % 89.00/ min 33858 302 50891 3 77.00 mm[Hg] - Sitting 109.00 mm[Hg] - Sitting 96.50 Oral 96.00 % 82.00/ min 01543 302 91886 2 204.00 NI 22356 302 90935 3 54.00 mm[Hg] - Sitting 108.00 mm[Hg] - Sitting 96.80 X-Other 95.00 % 61.00/ min 70096 303 48881 8 61.00 mm[Hg] - Sitting 120.00 mm[Hg] - Sitting 97.10 Ear 99.00 % 83.00/ min 23581 303 14370 8 204.00 NI Immunizations Vaccine Date Status COVID-19 2020 Completed COVID-19 12/22/2020 Completed COVID-19 08/21/2021 Completed COVID-19 04/16/2022 Completed Influenza 06/27/2022 Completed
--- OUTSIDE RECORDS SUMMARY | 2023-06-18 02:22 | External Medical Summary | Summary of Care ---
Author Name Unknown Organization [facility] Address [address] [place] [address] Phone [phone] Care Team Providers Care Caramel Candy Maker Helper Name Role Phone Marcela Pinto MD Primary Care Provider + Encounter Details Date Type Department Care Team Description 12/12/2022 Orders Only Lab Mobile Phlebotomy [facility] [address] [facility] [place] [address] Michelle Gallegos MD [address] [place] [address] [place] [address] Hypokalemia* Allergies Active Allergy Reactions Severity Noted Date Comments Valsartan 07/10/2010 Enalapril 05/21/2006 Escitalopram Oxalate Nausea/vomiting 10/11/2009 Nauseated Iodinated Contrast Media Nausea/vomiting 2009 IV Contrast Iodine Hives 12/18/2009 IV Contrast [place] Oil-Black Currant-Vit E 07/10/2010 Verapamil 03/21/2004 Bupropion Hcl 10/30/2009 Makes pt sick in the stomach documented as of this encounter (statuses as of 12/12/2022) Medications Medication Sig Dispensed Refills Start Date [...] BOTH EYES 10 mL 4 12/11/2022 Active Ferrous Sulfate 325 (65 Fe) MG Oral Tablet (Feosol) Take 1 Tablet by mouth in the morning. 30 Tablet 1 12/11/2022 Active Lumigan 0.01 % Ophthalmic Solution [...] Respimat 1.25 MCG/ACT Inhalation Aerosol Solution (Tiotropium [place] Monohydrate) Inhale 2 Puffs by mouth in [...] Oral Tablet Extended Release 24 Hour (toPROL XL)Indications:Remote Encoding Center Manager akin heart failure with reduced ejection [...] s:Asthma with severity to be determined,COPD, moderate ([facility]) TAKE 1 PUFF BY MOUTH 4 TIMES [...] RESPIRATORY FAILURE 1 Each 1 12/11/2022 Active documented as of this encounter (statuses as of 12/12/2022) Active Problems Problem Noted Date Full code [...] as of this encounter (statuses as of 12/12/2022) Resolved Problems Problem Noted Date Resolved Date [...] Hypoxemia 10/08/2011 10/30/2015 Genetic Sleep Disorder Research Other*[id number] 07/25/2011 05/15/2016 COPD, moderate 07/19/2011 07/28/2019 Overview: [...] as of this encounter (statuses as of 12/12/2022) Immunizations Name Administration Dates Next Due COVID-19 mRNA, LNP-s, No Pre serve, 2-Dose Series ([employer]) 08/21/2021,12/22/2020,2020 COVID-19, LNP-s, No Preserve , Tyler-sucrose, Ages 12+ ([employer]) 04/16/2022 Hepatitis B, 20+ yrs 10/01/2017,04/21/2017,03/20 Pneumococcal Conjugate Vacc, 13 Valent (Prevnar) 03/28/2015 Pneumococcal Conjugate Vacci ne, 20-valent ([id number]) 04/01/2022 Pneumococcal Polysaccharide PPV23 (Pneumovax) 05/21/2006 Seasonal [...] Encounters Date Type Specialty Care Team Description 12/13/2022 Longterm Visit Family Medicine Mabel Paul PA-C [address] [place] [address] 12/13/[address] [facility] [address] [facility] [place] [address] 12/17/2022 Office Visit General Surgery Teresita Padron PA-C [address] [place] [address] 12/23/2022 Office Visit Orthopedics Eliezer Gifford, DO [address] [place] [address] 01/03/2023 Office Visit Cardiology Hammad Lopez, DO [address] [place] [address] 01/07/2023 Office Visit Internal Medicine Marcela Pinto MD [address] [facility] [place] [address] Scheduled Orders Name Type Priority Associated Diagnoses Orde r Schedule POTASSIUM Lab Routine Hypokalemia Expected: 12/13/2022, Expires: 12/13/2023 Health Maintenance Due Date Last Done Comments [...] Additional history exists CKD PHOS USE SMARTSET 68015 08/05/202307/14, 02/19/2022, 03/09/2021, Additional history exists DIABETES-FOOT EXAM 10/10/2023 10/10/2022, 0 11/19/2021, 12/21/2020, Additional history exists Depression Screening, Annual for Pts 12 and Over 10/10/2023 10/10/2022 O2 ASSESSMENT COMPLETED IN PAST YEAR FOR COPD 11/24/2023 11/24/2022 CKD HGB USE SMARTSET 59283 12/12/202312/11, 12/06/2022, 12/02/2022, Additional history exists DXA [...] as of this encounter Visit Diagnoses Diagnosis Hypokalemia- Primary Hypopotassemia documented in this encounter Additional Health Concerns [...] Advance Directives occurred with: Patient Care Teams Caramel Candy Maker Helper Relationship Specialty Start Date End Date Marcela Pinto MD [address] [facility] [place], [place] [address] PCP - General Internal Medicine 08/04/14 documented as of this encounter
--- OUTSIDE RECORDS SUMMARY | 2023-06-18 02:22 | External Medical Summary | Summary of Care ---
Author Name Unknown Organization [facility] Address [address] [place] [address] Phone [phone] Care Team Providers Care Livestock Farm Manager Name Role Phone Marcela Pinto MD Primary Care Provider + Reason for Visit * Reason Onset Date Comments Skilled Visit 12/13/2022 Encounter Details Date Type Department Care Team Description 12/13/2022 Prison Visit [address] [address] Mabel Paul PA-C [address] [place] [address] Wound dehiscence*; COPD, group B, 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 ([facility]); Chronic systolic heart failure ([facility]); Asthma with severity to be determined; Type 2 diabetes mellitus with hemoglobin A1c goal of less than 7.5% ([facility]) Allergies Active Allergy Reactions Severity Noted Date Comments Valsartan 07/10/2010 Enalapril 05/21/2006 Escitalopram Oxalate Nausea/vomiting 10/11/2009 Nauseated Iodinated Contrast Media Nausea/vomiting 2009 IV Contrast Iodine Hives 12/18/2009 IV Contrast [place] Oil-Black Currant-Vit E 07/10/2010 Verapamil 03/21/2004 Bupropion Hcl 10/30/2009 Makes pt sick in the stomach documented as of this encounter (statuses as of 12/13/2022) Medications Medication Sig Dispensed Refills Start Date [...] Respimat 1.25 MCG/ACT Inhalation Aerosol Solution (Tiotropium [place] Monohydrate) Inhale 2 Puffs by mouth in [...] Oral Tablet Extended Release 24 Hour (toPROL XL)Indications:Ip Attorney akin heart failure with reduced ejection fraction [...] as of this encounter (statuses as of 12/13/2022) Active Problems Problem Noted Date Full code [...] as of this encounter (statuses as of 12/13/2022) Resolved Problems Problem Noted Date Resolved Date [...] Hypoxemia 10/08/2011 10/30/2015 Genetic Sleep Disorder Research Other*[id number] 07/25/2011 05/15/2016 COPD, moderate 07/19/2011 07/28/2019 Overview: [...] as of this encounter (statuses as of 12/13/2022) Immunizations Name Administration Dates Next Due COVID-19 mRNA, LNP-s, No Pre serve, 2-Dose Series ([employer]) 08/21/2021,12/22/2020,2020 COVID-19, LNP-s, No Preserve , Tyler-sucrose, Ages 12+ (Pfizer) 04/16/2022 Hepatitis B, 20+ yrs 10/01/2017,04/21/2017,03/20 Pneumococcal Conjugate Vacc, 13 Valent (Prevnar) 03/28/2015 Pneumococcal Conjugate Vacci ne, 20-valent ([id number]) 04/01/2022 Pneumococcal Polysaccharide PPV23 (Pneumovax) 05/21/2006 Seasonal [...] Encounters Date Type Specialty Care Team Description 12/17/2022 Office Visit General Surgery Teresita Padron PA-C [address] [place] [address] 12/23/2022 Office Visit Orthopedics Eliezer Gifford, DO [address] [place] [address] 01/03/2023 Office Visit Cardiology Hammad Lopez, DO [address] [place] [address] 01/07/2023 Office Visit Internal Medicine Marcela Pinto MD [address] [place] [address] Health Maintenance Due Date Last Done Comments [...] Additional history exists CKD PHOS USE SMARTSET 07958 08/05/202307/14, 02/19/2022, 03/09/2021, Additional history exists DIABETES-FOOT EXAM 10/10/2023 10/10/2022, 0 11/19/2021, 12/21/2020, Additional history exists Depression Screening, Annual for Pts 12 and Over 10/10/2023 10/10/2022 O2 ASSESSMENT COMPLETED IN PAST YEAR FOR COPD 11/24/2023 11/24/2022 CKD HGB USE SMARTSET 02523 12/12/202312/11, 12/06/2022, 12/02/2022, Additional history exists DXA [...] Primary Disruption of external operation (surgical) wound COPD, group B, 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 ([facility]) Chronic systolic heart failure ([facility]) Chronic systolic heart failure Asthma with severity to be determined Type 2 diabetes mellitus with hemoglobin A1c goal of less than 7.5% ([facility]) documented in this encounter Additional Health Concerns Infection Onset Date Last Indicated Resolved Time ESBL Comment:[facility] 11/1911/19/2022 11/25/2022 documented as of this [...] Advance Directives occurred with: Patient Care Teams Livestock Farm Manager Relationship Specialty Start Date End Date Marcela Pinto MD [address] [place] [address] [place] [address] PCP - General Internal Medicine 08/04/14 documented as of this encounter
--- OUTSIDE RECORDS SUMMARY | 2023-06-18 02:22 | External Medical Summary | Summary of Care ---
Author Name Unknown Organization [facility] Address [address] [place] [address] Phone [phone] Care Team Providers Care Artificial Breeding Distributor Name Role Phone Marcela Pinto MD Primary Care Provider + Reason for Visit * Reason Onset Date Comments Skilled Visit 12/16/2022 Encounter Details Date Type Department Care Team Description 12/16/2022 Retirement Visit [address] [id number] Mabel Paul PA-C [address] [place], [place] [phone] Wound dehiscence*; COPD, group B, 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 ([facility]); Chronic systolic heart failure (HCC); Paroxysmal atrial fibrillation (HCC); Moderate persistent asthma with exacerbation Allergies Active Allergy Reactions Severity Noted Date Comments Valsartan 07/10/2010 Enalapril 05/21/2006 Escitalopram Oxalate Nausea/vomiting 10/11/2009 Nauseated Iodinated Contrast Media Nausea/vomiting 2009 IV Contrast Iodine Hives 12/18/2009 IV Contrast [place] Oil-Black Currant-Vit E 07/10/2010 Verapamil 03/21/2004 Bupropion Hcl 10/30/2009 Makes pt sick in the stomach documented as of this encounter (statuses as of 12/16/2022) Medications Medication Sig Dispensed Refills Start Date [...] Respimat 1.25 MCG/ACT Inhalation Aerosol Solution (Tiotropium [place] Monohydrate) Inhale 2 Puffs by mouth in the morning. 4 g 0 3 Active Ventolin HFA 108 (90 Base) MCG/ACT Inhalation Aerosol Solution Inhale 2 Puffs by mouth in the morning and 2 Puffs before bedtime. 18 g 1 3 Active Vitamin D3 50 MCG (2000 UT) Oral Capsule Take 1 Capsule by mouth in the morning. 30 Capsule 5 3 Active Sucralfate 1 GM Oral Tablet (Carafate) Take 1 Tablet by mouth 4 times a day before meals and at bedtime. 120 Tablet 0 3 Active Metoprolol Succinate ER 25 MG Oral Tablet Extended Release 24 Hour (toPROL XL)Indications:Chr onic 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 ([facility]),NICM (nonischemic cardiomyopathy) ([facility]),Presence of Watchman left atrial appendage [...] Friday only. 45 Tablet 3 3 Active Ipratropium-Alb[place] rol 20-100 MCG/ACT Inhalation Aerosol Solution (Combivent Respimat)Indicatio ns:Asthma with severity to be determined,COPD, moderate ([facility]) TAKE 1 PUFF BY MOUTH [...] evening meals. 60 Tablet 1 3 Active Ferrous Sulfate 325 (65 Fe) MG Oral Tablet (Feosol) Take 1 Tablet by mouth in the morning. 30 Tablet 1 3 023 Discontinued documented as of this encounter (statuses as of 12/16/2022) Active Problems Problem Noted Date Full code [...] as of this encounter (statuses as of 12/16/2022) Resolved Problems Problem Noted Date Resolved Date [...] Hypoxemia 10/08/2011 10/30/2015 Genetic Sleep Disorder Research Other*[id number] 07/25/2011 05/15/2016 COPD, moderate 07/19/2011 07/28/2019 Overview: [...] as of this encounter (statuses as of 12/16/2022) Immunizations Name Administration Dates Next Due COVID-19 mRNA, LNP-s, No Pre serve, 2-Dose Series ([employer]) 08/21/2021,12/22/2020,2020 COVID-19, LNP-s, No Preserve , Tyler-sucrose, Ages 12+ (Pfizer) 04/16/2022 Hepatitis B, 20+ yrs 10/01/2017,04/21/2017,03/20 Pneumococcal Conjugate Vacc, 13 Valent (Prevnar) 03/28/2015 Pneumococcal Conjugate Vacci ne, 20-valent ([id number]) 04/01/2022 Pneumococcal Polysaccharide PPV23 (Pneumovax) 05/21/2006 Seasonal [...] Description 12/17/2022 Office Visit General Surgery Teresita Padron, PAAvelinoC [address] [place] [address] 12/23/2022 Office Visit Orthopedics Eliezer Gifford, DO [address] [place] [address] 01/03/2023 Office Visit Cardiology Hammad Lopez, [address] [place] [address] 01/07/2023 Office Visit Internal Medicine Marcela Pinto MD [address] [place], [place] [address] Health Maintenance Due Date Last Done Comments [...] Additional history exists CKD PHOS USE SMARTSET 89604 08/05/202307/14, 02/19/2022, 03/09/2021, Additional history exists DIABETES-FOOT EXAM 10/10/2023 10/10/2022, 0 11/19/2021, 12/21/2020, Additional history exists Depression Screening, Annual for Pts 12 and Over 10/10/2023 10/10/2022 O2 ASSESSMENT COMPLETED IN PAST YEAR FOR COPD 11/24/2023 11/24/2022 CKD HGB USE SMARTSET 77164 12/12/202312/11, 12/06/2022, 12/02/2022, Additional history exists DXA [...] heart failure (HCC) Chronic systolic heart failure Paroxysmal atrial fibrillation (HCC) Atrial fibrillation Moderate persistent asthma with exacerbation Unspecified asthma, [...] Advance Directives occurred with: Patient Care Teams Artificial Breeding Distributor Relationship Specialty Start Date End Date Marcela Pinto MD [address] [place] [address] [place], [place] [address] PCP - General Internal Medicine 08/04/14 documented as of this encounter
--- OUTSIDE RECORDS SUMMARY | 2023-06-18 02:22 | External Medical Summary ---
Author Name Unknown Address Unknown Organization K01:[place] [place] [address] [facility] [address] Laboratory Report Ordering Provider Test Date Status FANG CASSIDY 12/18/2022 05:41:00 Final Observation Date Value Abnormality Reference (Units ) Status Vitamin B12 12/18/2022 05:41:00 247 296-2580 (pg/mL) Final Performing Location [facility] [address] [facility] [address]
--- OUTSIDE RECORDS SUMMARY | 2023-06-18 02:22 | External Medical Summary | Continuity Of Care Document ---
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00 mm[Hg] - Sitting 97.70 X-Other 92.00/ min 218 19684 0 84.00 mm[Hg] - Lying Down 154.00 mm[Hg] - Lying Down 97.70 Ear 92.00/ min 18.00/min 66467 218 83982 4 97.70 Oral 78702 218 61273 1 84.00 mm[Hg] - Sitting 154.00 mm[Hg] - Sitting 18.00/min 218 74956 5 53.00 mm[Hg] - Sitting 95.00 mm[Hg] - Sitting 97.20 X-Other 93.00 % 75.00/ min 218 41127 0 35254 219 31087 1 78.00 mm[Hg] - Lying Down 137.00 mm[Hg] - Lying Down 96.10 Oral 96.00 % 65.00/ min 74751 219 87635 9 78.00 mm[Hg] - Sitting 137.00 mm[Hg] - Sitting 96.10 Ear 65.00/ min 18.00/min 66795 219 07895 0 78.00 mm[Hg] - Sitting 137.00 mm[Hg] - Sitting 95.70 Axillary 65.00/ min 18.00/min 99480 220 42078 0 89239 220 54897 0 61.00 mm[Hg] - Sitting 90.00 mm[Hg] - Sitting 95.40 Oral 99.00 % 75.00/ min 46003 220 14960 3 215.00 [place] [address]38 220 93909 5 69.00 mm[Hg] - Sitting 107.00 mm[Hg] - Sitting 96.80 Oral 96.00 % 100.00 /min 20598 221 91565 3 68.00 mm[Hg] - Sitting 102.00 mm[Hg] - Sitting 97.60 X-Other 97.00 % 82.00/ min 24205 222 10719 7 81.00 mm[Hg] - Sitting 144.00 mm[Hg] - Sitting 96.10 Oral 94.00 % 74.00/ min 71353 222 40666 3 62.00 mm[Hg] - Sitting 93.00 mm[Hg] - Sitting 96.00 X-Other 98.00 % 98.00/ min 39265 223 78838 0 73.00 mm[Hg] - Sitting 114.00 mm[Hg] - Sitting 97.50 Ear 99.00 % 76.00/ min 57634 223 12299 6 74.00 mm[Hg] - Sitting 111.00 mm[Hg] - Sitting 97.60 Oral 98.00 % 102.00 /min 16515 224 85456 4 216.00 NI 00639 224 85246 0 79.00 mm[Hg] - Sitting 117.00 mm[Hg] - Sitting 97.60 Ear 95.00 % 96.00/ min 31990 224 22050 9 214.00 NI 95267 224 73729 0 79.00 mm[Hg] - Sitting 116.00 mm[Hg] - Sitting 97.80 Oral 100.0 0% 98.00/ min 20107 225 51209 1 63.00 mm[Hg] - Sitting 116.00 mm[Hg] - Sitting 96.30 X-Other 99.00 % 84.00/ min 50499 225 36560 3 67.00 mm[Hg] - Sitting 102.00 mm[Hg] - Sitting 98.70 Ear 99.00 % 94.00/ min 99481 226 61825 0 62.00 mm[Hg] - Sitting 92.00 mm[Hg] - Sitting 97.00 Ear 97.00 % 84.00/ min 11040 226 01013 2 207.00 NI 51099 227 38042 5 52.00 mm[Hg] - Sitting 79.00 mm[Hg] - Sitting 96.30 Oral 94.00 % 64.00/ min 87113 227 44772 0 57.00 mm[Hg] - Sitting 99.00 mm[Hg] - Sitting 97.30 Oral 96.00 % 95.00/ min 79853 227 73070 4 74.00 mm[Hg] - Sitting 115.00 mm[Hg] - Sitting 97.00 Oral 100.0 0% 102.00 /min 52085 228 80078 7 78.00 mm[Hg] - Sitting 113.00 mm[Hg] - Sitting 96.40 Oral 99.00 % 97.00/ min 99451 301 75567 8 65.00 mm[Hg] - Sitting 100.00 mm[Hg] - Sitting 97.20 Oral 99.00 % 96.00/ min 74182 301 23783 3 64.00 mm[Hg] - Sitting 99.00 mm[Hg] - Sitting 97.20 Oral 99.00 % 71.00/ min 18025 301 29006 6 75.00 mm[Hg] - Sitting 110.00 mm[Hg] - Sitting 97.90 Oral 98.00 % 89.00/ min 78420 301 39324 9 75.00 mm[Hg] - Sitting 110.00 mm[Hg] - Sitting 97.90 Ear 98.00 % 89.00/ min 87974 302 43355 3 77.00 mm[Hg] - Sitting 109.00 mm[Hg] - Sitting 96.50 Oral 96.00 % 82.00/ min 49633 302 29540 2 204.00 NI Immunizations Vaccine Date Status COVID-19 2020 Completed COVID-19 12/22/2020 Completed COVID-19 08/21/2021 Completed COVID-19 04/16/2022 Completed Influenza 06/27/2022 Completed
--- OUTSIDE RECORDS SUMMARY | 2023-06-18 02:22 | External Medical Summary ---
Author Name Unknown Address Unknown Organization K01:[facility] [place] - [address] [facility] [address] Laboratory Report Ordering Provider Test Date Status FANG CASSIDY 12/18/2022 05:41:00 Final Observation Date Value Abnormality Reference (Units ) Status Folic Acid 12/18/2022 05:41:00 9.7 >4.5 (ng/ mL) Final Performing Location [facility] - [address] [facility] [address]
--- OUTSIDE RECORDS SUMMARY | 2023-06-18 02:22 | External Medical Summary | Summary of Care ---
Author Name Unknown Organization [facility] Address [address] [place] [address] Phone [phone] Care Team Providers Care Online Merchandiser Name Role Phone Marcela Pinto MD Primary Care Provider + Encounter Details Date Type Department Care Team Description 12/17/2022 Orders Only Lab Mobile Phlebotomy [facility] [place] [address] [place] [address] Michelle Gallegos MD [address] [place] [address] [place] [address] Anemia* Allergies Active Allergy Reactions Severity Noted Date Comments Valsartan 07/10/2010 Enalapril 05/21/2006 Escitalopram Oxalate Nausea/vomiting 10/11/2009 Nauseated Iodinated Contrast Media Nausea/vomiting 2009 IV Contrast Iodine Hives 12/18/2009 IV Contrast [place] Oil-Black Currant-Vit E 07/10/2010 Verapamil 03/21/2004 Bupropion [...] Respimat 1.25 MCG/ACT Inhalation Aerosol Solution (Tiotropium [place] Monohydrate) Inhale 2 Puffs by mouth in [...] Oral Tablet Extended Release 24 Hour (toPROL XL)Indications:Equip Maint Eng akin 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 ([facility]),NICM (nonischemic cardiomyopathy) ([facility]),Presence of Watchman left atrial appendage closure [...] Hypoxemia 10/08/2011 10/30/2015 Genetic Sleep Disorder Research Other*[id number] 07/25/2011 05/15/2016 COPD, moderate 07/19/2011 07/28/2019 Overview: [...] mRNA, LNP-s, No Pre serve, 2-Dose Series ([employer]) 08/21/2021,12/22/2020,2020 COVID-19, LNP-s, No Preserve , Tyler-sucrose, Ages 12+ ([employer]) 04/16/2022 Hepatitis B, 20+ yrs 10/01/2017,04/21/2017,03/20 Pneumococcal Conjugate Vacc, 13 Valent (Prevnar) 03/28/2015 Pneumococcal Conjugate Vacci ne, 20-valent ([id number]) 04/01/2022 Pneumococcal Polysaccharide PPV23 (Pneumovax) 05/21/2006 Seasonal [...] Encounters Date Type Specialty Care Team Description 12/18/2022 Laboratory Laboratory Processing [address] [place] [address] 12/23/2022 Office Visit Orthopedics Eliezer Gifford, DO [address] [place] [address] 01/03/2023 Office Visit Cardiology Hammad Lopez, [address] [place] [address] 01/07/2023 Office Visit Internal Medicine [facility] [address] [facility] [address] Scheduled Orders Name Type Priority Associated Diagnoses Orde r Schedule CBC WITH WBC DIFFERENTIAL AND ANEMIA REFLEX WORKUP Lab Routine Anemia Expected: 12/18/2022, Expires: 12/18/2023 Health Maintenance Due Date Last Done Comments [...] Additional history exists CKD PHOS USE SMARTSET 53713 08/05/202307/14, 02/19/2022, 03/09/2021, Additional history exists DIABETES-FOOT EXAM 10/10/2023 10/10/2022, 0 11/19/2021, 12/21/2020, Additional history exists Depression Screening, Annual for Pts 12 and Over 10/10/2023 10/10/2022 O2 ASSESSMENT COMPLETED IN PAST YEAR FOR COPD 11/24/2023 11/24/2022 CKD HGB USE SMARTSET 01797 12/12/202312/11, 12/06/2022, 12/02/2022, Additional history exists DXA [...] as of this encounter Visit Diagnoses Diagnosis Anemia- Primary Anemia, unspecified documented in this encounter Additional Health Concerns Infection Onset Date Last Indicated Resolved Time ESBL Comment:[facility] 11/1911/19/2022 11/25/2022 documented as of this encounter [...] Advance Directives occurred with: Patient Care Teams Online Merchandiser Relationship Specialty Start Date End Date Marcela Pinto MD [address] [facility] [place] [address] PCP - General Internal Medicine 08/04/14 documented as of this encounter
--- OUTSIDE RECORDS SUMMARY | 2023-06-18 02:22 | External Medical Summary ---
Author Name Unknown Address Unknown Organization K01:[facility] [place] [address] [facility] [address] Laboratory Report Ordering Provider Test Date Status FANG CASSIDY 12/18/2022 05:41:00 Final Observation Date Value Abnormality Reference (Units ) Status TSH 12/18/2022 05:41:00 8.88 Above high normal 0. 27-4.20 (uIU/mL) Final Performing Location LABORATORY [facility] - [address] [facility] [address]
--- OUTSIDE RECORDS SUMMARY | 2023-06-18 02:23 | External Medical Summary | Summary of Care ---
Author Name Unknown Organization [facility] Address [address] [place] [address] Phone [phone] Care Team Providers Care Livestock Farmworker Name Role Phone Marcela Pinto MD Primary Care Provider + Reason for Visit * Reason Onset Date Comments Appointment 12/11/2022 Encounter Details Date Type Department Care Team Description 12/11/2022 Telephone General Surgery, [place] [address] [place] [address] Services, [facility] [address] [place] [address] Appointment Allergies Active Allergy Reactions Severity Noted Date Comments Valsartan 07/10/2010 Enalapril 05/21/2006 Escitalopram Oxalate Nausea/vomiting 10/11/2009 Nauseated Iodinated Contrast Media Nausea/vomiting 2009 IV Contrast Iodine Hives 12/18/2009 IV Contrast [place] Oil-Black Currant-Vit E 07/10/2010 Verapamil 03/21/2004 Bupropion Hcl 10/30/2009 Makes pt sick in the stomach documented as of this encounter (statuses as of 12/11/2022) Medications Medication Sig Dispensed Refills Start Date End Date Status VITAMIN D 1000 UNITS PO TABS Take 2 Tablets by mouth in the morning. 0 07/27/2012 Active LUMIGAN 0.01 % OP SOLN INSTILL 1 DROP BY TOPICAL ROUTE EVERY BEDTIME 4 10/29/2014 Active AZOPT 1 % OP SUSP INSTILL 1 DROP BY OPHTHALMIC ROUTE 2 TIMES EVERY DAY INTO BOTH EYES 4 10/29/2014 Active oxygen GAS Use 2 L/min(Oxygen) as directed daily. and 4 L/min at night. 0 Active Multiple Vitamins-Minerals (ONE DAILY MULTIVITAMIN WOMEN) TABS one pill each day 0 04/21/2017 Active docusate sodium (COLACE) 100 MG Capsule Take 1 Cap by mouth daily. 90 Cap 0 03/31/2019 Active albuterol sulfate (PROVENTIL) (2.5 MG/3ML) 0.083% nebulizer solutionIndications :Asthma with severity to be determined,COPD, moderate (HCC) USE ONE NEBULIZER TREATMENT TWICE A DAY DIRECTED FOR WORSENING ASTHMA. J45.909, J44.9 225 mL 1 06/29/2019 Active Albuterol Sulfate (VENTOLIN HFA) 108 (90 Base) MCG/ACT AERS Inhale 2 Puffs by mouth 2 times a day. 0 12/27/2019 Active Aspirin 81 MG Oral Tablet Delayed Release Take 1 Tablet by mouth in the morning. 0 02/05/2021 Active Spiriva Respimat 1.25 MCG/ACT Inhalation Aerosol Solution (Tiotropium [place] Monohydrate) Inhale 2 Puffs by mouth in the morning. 0 Active Dicyclomine HCl 20 MG Oral Tablet (Bentyl)Indications :Chronic constipation TAKE 1 TABLET BY MOUTH EVERY DAY 90 Tablet 2 03/25/2022 Active Ferrous Sulfate 325 (65 Fe) MG Oral Tablet (Feosol) Take 1 Tablet by mouth in the morning. 0 04/22/2022 Active Zafirlukast 20 MG Oral Tablet (Accolate)Indicatio ns:Asthma with severity to be determined TAKE 1 TABLET BY MOUTH EVERY DAY 90 Tablet 3 05/02/2022 Active Sertraline HCl 25 MG Oral Tablet (Zoloft)Indications :Major depressive disorder with single episode, in partial remission (HCC),HECTOR (generalized anxiety disorder) TAKE 1 TABLET BY MOUTH EVERY DAY IN THE MORNING 90 Tablet 1 06/12/2022 Active Omeprazole 20 MG Oral Capsule Delayed Release (PriLOSEC)Indicatio ns:Ischemic colitis (HCC) TAKE 1 CAPSULE BY MOUTH TWICE A DAY 180 Capsule 3 06/14/2022 Active Ondansetron 8 MG Oral Tablet Disintegrating (Zofran) DISSOLVE 1 TABLET ON TONGUE EVERY 8 HOURS NEEDED FOR NAUSEA 60 Tablet 5 06/14/2022 Active Polyethylene Glycol 3350 17 GM Oral Packet (Miralax) Take 1 Packet by mouth 2 times a day as needed for Constipation. 0 Active Glimepiride 2 MG Oral Tablet (Amaryl) TAKE 1 TABLET BY MOUTH EVERY DAY WITH BREAKFAST 90 Tablet 1 08/09/2022 Active Magnesium Chloride 64 MG Oral Tablet Delayed Release (Mag-64) Take 1 Tablet by mouth in the morning. 0 07/25/2022 Active Klor-Con M20 20 MEQ Oral Tablet Extended Release (Potassium Chloride Annalisa ER)Indications:HTN, goal below 140/90 TAKE 1 TABLET BY MOUTH EVERY DAY 90 Tablet 3 08/19/2022 Active predniSONE 50 MG Oral Tablet (Deltasone)Indicati ons:Colonic diverticular abscess One tablet 13 hours, 7 hours and 1 hour prior to scheduled dye 3 Tablet 0 08/21/2022 Active Ipratropium-Albuter ol 20-100 MCG/ACT Inhalation Aerosol Solution (Combivent Respimat)Indication s:Asthma with severity to be determined,COPD, moderate (HCC) TAKE 1 PUFF BY MOUTH 4 TIMES A DAY 12 g 1 09/10/2022 Active Furosemide 40 MG Oral Tablet (Lasix) Take 1 Tablet (40 mg) by mouth in the morning and 1 Tablet (40 mg) before bedtime. 180 Tablet 3 09/11/2022 Active Atorvastatin Calcium 40 MG Oral Tablet (Lipitor)Indication s:Hyperlipidemia with target LDL less than 100 TAKE BY MOUTH 1 TABLET IN THE MORNING. 90 Tablet 4 09/11/2022 Active Spironolactone 25 MG Oral Tablet (Aldactone) Take 0.5 Tablets (12.5 mg) by mouth once a day on Friday, Friday, and Friday only. 45 Tablet 3 09/11/2022 Active methIMAzole 5 MG Oral Tablet (Tapazole) Take 1 Tablet (5 mg) by mouth in the morning. 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 355 mL 0 11/11/2022 Active Sucralfate 1 GM Oral Tablet (Carafate) Take 1 Tablet by mouth 4 times a day before meals and at bedtime. 120 Tablet 0 11/11/2022 3 Active oxyCODONE HCl 5 MG Oral [...] 24 hours. 1 Tablet 0 11/27/2022 Active guaiFENesin-DM 100-10 MG/5ML Oral Syrup (Robitussin DM) Take 5 mL by mouth every 6 hours. For 3 days then as needed for cough. 120 mL 0 11/28/2022 Active metroNIDAZOLE 500 MG Oral Tablet (Flagyl) TAKE ONE TABLET BY MOUTH THREE TIMES A DAY EVERY MORNING AT NOON AND BEFORE BEDTIME FOR 12 DAYS 36 Tablet 0 06/07/2022 3 Active Ciprofloxacin HCl 500 MG Oral Tablet (Cipro) TAKE ONE TABLET BY MOUTH TWICE A DAY EVERY MORNING AND BEFORE BEDTIME FOR 12 DAYS 24 Tablet 0 06/07/2022 3 Active documented as of this encounter (statuses as of 12/11/2022) Active Problems Problem Noted Date Full code [...] as of this encounter (statuses as of 12/11/2022) Resolved Problems Problem Noted Date Resolved Date [...] Hypoxemia 10/08/2011 10/30/2015 Genetic Sleep Disorder Research Other*[id number] 07/25/2011 05/15/2016 COPD, moderate 07/19/2011 07/28/2019 Overview: [...] as of this encounter (statuses as of 12/11/2022) Immunizations Name Administration Dates Next Due COVID-19 mRNA, LNP-s, No Pre serve, 2-Dose Series (Pfizer) 08/21/2021,12/22/2020,2020 COVID-19, LNP-s, No Preserve , Tyler-sucrose, Ages 12+ (Pfizer) 04/16/2022 Hepatitis B, 20+ yrs 10/01/2017,04/21/2017,03/20 Pneumococcal Conjugate Vacc, 13 Valent (Prevnar) 03/28/2015 Pneumococcal Conjugate Vacci ne, 20-valent ([id number]) 04/01/2022 Pneumococcal Polysaccharide PPV23 (Pneumovax) 05/21/2006 Seasonal [...] Miscellaneous Notes * Telephone Encounter - JORDAN Gibson - 12/11/2022 9:14 AM EST Pt had not to cancel appt for friday due to weather. Next available is not until end december and this is a 2 week post op. Please contact daughter Kaci to reschedule PREMA documented in this encounter Plan of Treatment Upcoming Encounters Date Type Specialty Care Team Description 12/23/2022 Office Visit Orthopedics Eliezer Gifford, DO [address] [place] [address] 01/03/2023 Office Visit Cardiology Hammad Lopez, DO [address] [place] [address] 01/07/2023 Office Visit Internal Medicine Marcela Pinto MD [address] [facility], [place] [address] Health Maintenance Due Date Last Done Comments [...] Additional history exists CKD PHOS USE SMARTSET 71374 08/05/202307/14, 02/19/2022, 03/09/2021, Additional history exists DIABETES-FOOT EXAM 10/10/2023 10/10/2022, 0 11/19/2021, 12/21/2020, Additional history exists Depression Screening, Annual for Pts 12 and Over 10/10/2023 10/10/2022 O2 ASSESSMENT COMPLETED IN PAST YEAR FOR COPD 11/24/2023 11/24/2022 CKD HGB USE SMARTSET 29825 12/12/202312/11, 12/06/2022, 12/02/2022, Additional history exists DXA [...] Onset Date Last Indicated Resolved Time ESBL Comment:[facility] 11/1911/19/2022 11/25/2022 documented as of [...] Directives occurred with: Patient Care Teams Livestock Farmworker Relationship Specialty Start Date End Date Marcela Pinto MD [address] [facility] [place] [address] PCP - General Internal Medicine 08/04/14 documented as of this encounter
--- OUTSIDE RECORDS SUMMARY | 2023-06-18 02:23 | External Medical Summary | Summary of Care ---
Author Name Unknown Organization [facility] Address [address] [place] [address] Phone [phone] Care Team Providers Care Food Service Counter Clerk Name Role Phone Marcela Pinto MD Primary Care Provider + Reason for Visit * Reason Onset Date Comments Skilled Visit 12/11/2022 Encounter Details Date Type Department Care Team Description 12/11/2022 Halfway Visit [address] [address] Mabel Paul PA-C [address] [place] [address] Wound dehiscence*; Type 2 diabetes mellitus with stage 3a chronic kidney disease, without long-term current use of insulin ([facility]); Chronic systolic heart failure ([facility]); COPD, group B, 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 ([facility]); Hypokalemia Allergies Active Allergy Reactions Severity Noted Date Comments Valsartan 07/10/2010 Enalapril 05/21/2006 Escitalopram Oxalate Nausea/vomiting 10/11/2009 Nauseated Iodinated Contrast Media Nausea/vomiting 2009 IV Contrast Iodine Hives 12/18/2009 IV Contrast [place] Oil-Black Currant-Vit E 07/10/2010 Verapamil 03/21/2004 Bupropion Hcl 10/30/2009 Makes pt sick in the stomach documented as of this encounter (statuses as of 12/11/2022) Medications Medication Sig Dispensed Refills Start Date End Date Status VITAMIN D 1000 UNITS PO TABS Take 2 Tablets by mouth in the morning. 0 2 Active LUMIGAN 0.01 % OP SOLN INSTILL 1 DROP BY TOPICAL ROUTE EVERY BEDTIME 4 5 Active AZOPT 1 % OP SUSP INSTILL 1 DROP BY OPHTHALMIC ROUTE 2 TIMES EVERY DAY INTO BOTH EYES 4 5 Active oxygen GAS Use 2 L/min(Oxygen) as directed daily. and 4 L/min at night. 0 Active Multiple Vitamins-Minerals (ONE DAILY MULTIVITAMIN WOMEN) TABS one pill each day 0 7 Active docusate sodium (COLACE) 100 MG Capsule Take 1 Cap by mouth daily. 90 Cap 0 9 Active albuterol sulfate (PROVENTIL) (2.5 MG/3ML) 0.083% nebulizer solutionIndications :Asthma with severity to be determined,COPD, moderate (HCC) USE ONE NEBULIZER TREATMENT TWICE A DAY DIRECTED FOR WORSENING ASTHMA. J45.909, J44.9 225 mL 1 9 Active Albuterol Sulfate (VENTOLIN HFA) 108 (90 Base) MCG/ACT AERS Inhale 2 Puffs by mouth 2 times a day. 0 0 Active Aspirin 81 MG Oral Tablet Delayed Release Take 1 Tablet by mouth in the morning. 0 1 Active Spiriva Respimat 1.25 MCG/ACT Inhalation Aerosol Solution (Tiotropium [place] Monohydrate) Inhale 2 Puffs by mouth in the morning. 0 Active Dicyclomine HCl 20 MG Oral Tablet (Bentyl)Indications :Chronic constipation TAKE 1 TABLET BY MOUTH EVERY DAY 90 Tablet 2 2 Active Ferrous Sulfate 325 (65 Fe) MG Oral Tablet (Feosol) Take 1 Tablet by mouth in the morning. 0 2 Active Zafirlukast 20 MG Oral Tablet (Accolate)Indicatio ns:Asthma with severity to be determined TAKE 1 TABLET BY MOUTH EVERY DAY 90 Tablet 3 2 Active Sertraline HCl 25 MG Oral Tablet (Zoloft)Indications :Major depressive disorder with single episode, in partial remission (HCC),HECTOR (generalized anxiety disorder) TAKE 1 TABLET BY MOUTH EVERY DAY IN THE MORNING 90 Tablet 1 2 Active Omeprazole 20 MG Oral Capsule Delayed Release (PriLOSEC)Indicatio ns:Ischemic colitis (HCC) TAKE 1 CAPSULE BY MOUTH TWICE A DAY 180 Capsule 3 2 Active Ondansetron 8 MG Oral Tablet Disintegrating (Zofran) DISSOLVE 1 TABLET ON TONGUE EVERY 8 HOURS NEEDED FOR NAUSEA 60 Tablet 5 2 Active Polyethylene Glycol 3350 17 GM Oral Packet (Miralax) Take 1 Packet by mouth 2 times a day as needed for Constipation. 0 Active Glimepiride 2 MG Oral Tablet (Amaryl) TAKE 1 TABLET BY MOUTH EVERY DAY WITH BREAKFAST 90 Tablet 1 2 Active Magnesium Chloride 64 MG Oral Tablet Delayed Release (Mag-64) Take 1 Tablet by mouth in the morning. 0 2 Active Klor-Con M20 20 MEQ Oral Tablet Extended Release (Potassium Chloride Annalisa ER)Indications:HTN, goal below 140/90 TAKE 1 TABLET BY MOUTH EVERY DAY 90 Tablet 3 2 Active predniSONE 50 MG Oral Tablet (Deltasone)Indicati ons:Colonic diverticular abscess One tablet 13 hours, 7 hours and 1 hour prior to scheduled dye 3 Tablet 0 2 Active Ipratropium-Albuter ol 20-100 MCG/ACT Inhalation Aerosol Solution (Combivent Respimat)Indication s:Asthma with severity to be determined,COPD, moderate (HCC) TAKE 1 PUFF BY MOUTH 4 TIMES A DAY 12 g 1 2 Active Furosemide 40 MG Oral Tablet (Lasix) Take 1 Tablet (40 mg) by mouth in the morning and 1 Tablet (40 mg) before bedtime. 180 Tablet 3 2 Active Atorvastatin Calcium 40 MG Oral Tablet (Lipitor)Indication s:Hyperlipidemia with target LDL less than 100 TAKE BY MOUTH 1 TABLET IN THE MORNING. 90 Tablet 4 2 Active Spironolactone 25 MG Oral Tablet (Aldactone) Take 0.5 Tablets (12.5 mg) by mouth once a day on Friday, Friday, and Friday only. 45 Tablet 3 2 Active methIMAzole 5 MG Oral Tablet (Tapazole) Take 1 Tablet (5 mg) by mouth in the morning. 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 355 mL 0 3 Active Sucralfate 1 GM Oral Tablet (Carafate) Take 1 Tablet by mouth 4 times a day before meals and at bedtime. 120 Tablet 0 3 12/12/19 23 Active oxyCODONE HCl 5 MG Oral Tablet [...] 24 hours. 1 Tablet 0 3 Active guaiFENesin-DM 100-10 MG/5ML Oral Syrup (Robitussin DM) Take 5 mL by mouth every 6 hours. For 3 days then as needed for cough. 120 mL 0 3 Active metroNIDAZOLE 500 MG Oral Tablet (Flagyl) TAKE ONE TABLET BY MOUTH THREE TIMES A DAY EVERY MORNING AT NOON AND BEFORE BEDTIME FOR 12 DAYS 36 Tablet 0 2 12/12/19 23 Discontinu ed(Medicat ion List Clean Up) Ciprofloxacin HCl 500 MG Oral Tablet (Cipro) TAKE ONE TABLET BY MOUTH TWICE A DAY EVERY MORNING AND BEFORE BEDTIME FOR 12 DAYS 24 Tablet 0 2 12/12/19 23 Discontinu ed(Medicat ion List Clean Up) [...] Hypoxemia 10/08/2011 10/30/2015 Genetic Sleep Disorder Research Other*[id number] 07/25/2011 05/15/2016 COPD, moderate 07/19/2011 07/28/2019 Overview: [...] mRNA, LNP-s, No Pre serve, 2-Dose Series (Orthos) 08/21/2021,12/22/2020,2020 COVID-19, LNP-s, No Preserve , Tyler-sucrose, Ages 12+ (Pfizer) 04/16/2022 Hepatitis B, 20+ yrs 10/01/2017,04/21/2017,03/20 Pneumococcal Conjugate Vacc, 13 Valent (Prevnar) 03/28/2015 Pneumococcal Conjugate Vacci ne, 20-valent ([id number]) 04/01/2022 Pneumococcal Polysaccharide PPV23 (Pneumovax) 05/21/2006 Seasonal [...] 12/17/2022 Office Visit General Surgery Teresita Padron, PA-C [address] [place] [address] 12/23/2022 Office Visit Orthopedics Eliezer Gifford, DO [address] [place] [address] 01/03/2023 Office Visit Cardiology Hammad Lopez, DO [address] [place] [address] 01/07/2023 Office Visit Internal Medicine Marcela Pinto MD [address] [facility] [place] [address] Health Maintenance Due Date Last Done Comments [...] Additional history exists CKD PHOS USE SMARTSET 19095 08/05/202307/14, 02/19/2022, 03/09/2021, Additional history exists DIABETES-FOOT EXAM 10/10/2023 10/10/2022, 0 11/19/2021, 12/21/2020, Additional history exists Depression Screening, Annual for Pts 12 and Over 10/10/2023 10/10/2022 O2 ASSESSMENT COMPLETED IN PAST YEAR FOR COPD 11/24/2023 11/24/2022 CKD HGB USE SMARTSET 99644 12/12/202312/11, 12/06/2022, 12/02/2022, Additional history exists DXA [...] Primary Disruption of external operation (surgical) wound Type 2 diabetes mellitus with stage 3a chronic kidney disease, without long-term current use of insulin (HCC) Chronic systolic heart failure (HCC) Chronic systolic heart failure COPD, group B, 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 (HCC) Hypokalemia Hypopotassemia documented in this encounter Additional Health Concerns Infection Onset Date Last Indicated Resolved Time ESBL Comment:[facility] [place] 11/1911/19/2022 11/25/2022 documented as of this encounter [...] Advance Directives occurred with: Patient Care Teams Food Service Counter Clerk Relationship Specialty Start Date End Date Marcela Pinto MD [address] [place] [address] PCP - General Internal Medicine 08/04/14 documented as of this encounter
--- OUTSIDE RECORDS SUMMARY | 2023-06-18 02:23 | External Medical Summary ---
Author Name Unknown Address Unknown Organization [id number][facility] [address] [place] [address] Laboratory Report Ordering Provider Test Date Status FANG CASSIDY 12/06/2022 05:40:00 Final Observation Date Value Abnormality Reference (Units ) Status WBC, Total 12/06/2022 05:40:00 9.47 4.00-10.8 0 (K/uL) Final RBC 12/06/2022 05:40:00 3.11 3.85-5.15 (M/uL) Final Hemoglobin 12/06/2022 05:40:00 8.8 Below low normal 12 .0-15.3 (g/dL) Final HCT 12/06/2022 05:40:00 28.9 Below low normal 36. 0-45.2 (%) Final MCV 12/06/2022 05:40:00 92.9 81.5-97.5 (fL) Final MCH 12/06/2022 05:40:00 28.3 27.0-34.0 (pg) Final MCHC 12/06/2022 05:40:00 30.4 32.0-36.0 (g/dL) Final RDW 12/06/2022 05:40:00 15.8 11.5-15.5 (%) Final Platelets 12/06/2022 05:40:00 361 140-400 (K /uL) Final MPV 12/06/2022 05:40:00 9.8 6.6-11.1 ( fL) Final Performing Location [facility] [place] [address]
--- OUTSIDE RECORDS SUMMARY | 2023-06-18 02:23 | External Medical Summary | Summary of Care ---
Author Name Unknown Organization [place] [address] Care Team Providers Care Deputy Sheriff Civil Division Name Role Phone Marcela Pinto MD Primary Care Provider + Encounter Details Date Type Department Care Team Description 12/06/2022 Orders Only Lab Mobile Phlebotomy [facility] [address] [place] [address] Michelle Gallegos MD [address] [place] [address] [place] [address] Chronic systolic heart failure (HCC)*; Type 2 diabetes mellitus with hemoglobin A1c goal of less than 7.5% (HCC) Allergies Active Allergy Reactions Severity Noted Date Comments Valsartan 07/10/2010 Enalapril 05/21/2006 Escitalopram Oxalate Nausea/vomiting 10/11/2009 Nauseated Iodinated Contrast Media Nausea/vomiting 2009 IV Contrast Iodine Hives 12/18/2009 IV Contrast [place] Oil-Black Currant-Vit E 07/10/2010 Verapamil 03/21/2004 Bupropion Hcl 10/30/2009 Makes pt sick in the stomach documented as of this encounter (statuses as of 12/06/2022) Medications Medication Sig Dispensed Refills Start Date [...] Respimat 1.25 MCG/ACT Inhalation Aerosol Solution (Tiotropium [place] Monohydrate) Inhale 2 Puffs by mouth in [...] Oral Tablet Extended Release 24 Hour (toPROL XL)Indications:Office Aide akin heart failure with reduced ejection fraction [...] and at bedtime. 120 Tablet 0 11/11/2022 Active oxyCODONE HCl 5 MG [...] for cough. 120 mL 0 11/28/2022 Active documented as of this encounter (statuses as of 12/06/2022) Active Problems Problem Noted Date Full code [...] as of this encounter (statuses as of 12/06/2022) Resolved Problems Problem Noted Date Resolved Date [...] Hypoxemia 10/08/2011 10/30/2015 Genetic Sleep Disorder Research Other*[id number] 07/25/2011 05/15/2016 COPD, moderate 07/19/2011 07/28/2019 Overview: [...] as of this encounter (statuses as of 12/06/2022) Immunizations Name Administration Dates Next Due COVID-19 mRNA, LNP-s, No Pre serve, 2-Dose Series (LogoGrab) 08/21/2021,12/22/2020,2020 COVID-19, LNP-s, No Preserve , Tyler-sucrose, Ages 12+ (Pfizer) 04/16/2022 Hepatitis B, 20+ yrs 10/01/2017,04/21/2017,03/20 Pneumococcal Conjugate Vacc, 13 Valent (Prevnar) 03/28/2015 Pneumococcal Conjugate Vacci ne, 20-valent ([id number]) 04/01/2022 Pneumococcal Polysaccharide PPV23 (Pneumovax) 05/21/2006 Seasonal [...] Encounters Date Type Specialty Care Team Description 12/06/2022 Laboratory Laboratory Processing [address] [place] [address] 12/13/2022 Office Visit General Surgery Teresita Padron PA-C [address] [place] [address] 12/23/2022 Office Visit Orthopedics Eliezer Gifford, DO [address] [place] [address] 01/03/2023 Office Visit Cardiology Hammad Lopez, DO [address] [place] [address] 01/07/2023 Office Visit Internal Medicine [facility]a Pinto MD [address] [facility] [place] [place] [address] Scheduled Orders Name Type Priority Associated Diagnoses Orde r Schedule BASIC METABOLIC PANEL Lab Routine Chronic systolic heart failure (HCC) Type 2 diabetes mellitus with hemoglobin A1c goal of less than 7.5% (HCC) Expected: 12/06/2022, Expires: 12/06/2023 CBC Lab Routine Chronic systolic heart failure (HCC) Type 2 diabetes mellitus with hemoglobin A1c goal of less than 7.5% (HCC) Expected: 12/06/2022, Expires: 12/06/2023 Health Maintenance Due Date Last Done Comments Alpha-1 Antitrypsin 1956 Zoster Vaccines (3 of 3) 05/27/2022 04/01/2022, 06/14 COVID-19 Vaccine (5 - Booster for Pfizer series) 06/11/2022 04/16/2022, 08/21/2021, 12/22/2020, Additional history exists Albumin/Creatinine Ratio 02/19/2023 022, 07/09/2019, 07/27/2018, Additional history exists DIABETES-EYE EXAM 03/08/2023 03/08/2022, , 08/07/2020, Additional history exists HgA1C 05/24/2023 11/24/2022, 05/14, 02/19/2022, Additional history exists GFR - Renal Function 06/01/2023 12/02/2022, 11/29/2022, 11/28/2022, Additional history exists CKD PHOS USE SMARTSET 67931 08/05/202307/14, 02/19/2022, 03/09/2021, Additional history exists DIABETES-FOOT EXAM 10/10/2023 10/10/2022, 0 11/19/2021, 12/21/2020, Additional history exists Depression Screening, Annual for Pts 12 and Over 10/10/2023 10/10/2022 O2 ASSESSMENT COMPLETED IN PAST YEAR FOR COPD 11/24/2023 11/24/2022 CKD HGB USE SMARTSET 87985 12/02/202312/02, 11/29/2022, 11/28/2022, Additional history exists DXA Scan 08/08/2025 08/08/2020, [...] of this encounter Visit Diagnoses Diagnosis Chronic systolic heart failure (HCC) Chronic systolic heart failure Type 2 diabetes mellitus with hemoglobin A1c goal of less than 7.5% (HCC) Chronic systolic heart failure (HCC)- Primary Chronic systolic heart failure Type 2 diabetes mellitus with hemoglobin A1c goal of less than 7.5% (HCC) documented in this encounter Additional Health Concerns Infection Onset Date Last Indicated Resolved Time ESBL Comment:[facility] 11/1911/19/2022 11/25/2022 documented as of this [...] Advance Directives occurred with: Patient Care Teams Deputy Sheriff Civil Division Relationship Specialty Start Date End Date Marcela Pinto MD [address] [facility] [place] [address] PCP - General Internal Medicine 08/04/14 documented as of this encounter
--- OUTSIDE RECORDS SUMMARY | 2023-06-18 02:23 | External Medical Summary | Summary of Care ---
Author Name Unknown Organization [place] [address] Care Team Providers Care Rosin Barrel Filler Name Role Phone Marcela Pinto MD Primary Care Provider + Reason for Visit * Reason Onset Date Comments Skilled Visit 12/06/2022 Encounter Details Date Type Department Care Team Description 12/06/2022 Halfway Visit [facility] [address] [place] [address] Mabel Paul PA-C [address] [place] [address] Wound dehiscence*; Type 2 diabetes mellitus with stage 3a chronic kidney disease, without long-term current use of insulin ([facility]); Chronic systolic heart failure ([facility]); COPD, group B, 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 ([facility]) Allergies Active Allergy Reactions Severity Noted Date Comments Valsartan 07/10/2010 Enalapril 05/21/2006 Escitalopram Oxalate Nausea/vomiting 10/11/2009 Nauseated Iodinated Contrast Media Nausea/vomiting 2009 IV Contrast Iodine Hives 12/18/2009 IV Contrast [place] Oil-Black Currant-Vit E 07/10/2010 Verapamil 03/21/2004 Bupropion [...] Respimat 1.25 MCG/ACT Inhalation Aerosol Solution (Tiotropium [place] Monohydrate) Inhale 2 Puffs by mouth in [...] Oral Tablet Extended Release 24 Hour (toPROL XL)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 akin heart failure with reduced ejection fraction [...] Hypoxemia 10/08/2011 10/30/2015 Genetic Sleep Disorder Research Other*[id number] 07/25/2011 05/15/2016 COPD, moderate 07/19/2011 07/28/2019 Overview: [...] mRNA, LNP-s, No Pre serve, 2-Dose Series ([employer]) 08/21/2021,12/22/2020,2020 COVID-19, LNP-s, No Preserve , Tyler-sucrose, Ages 12+ (Pfizer) 04/16/2022 Hepatitis B, 20+ yrs 10/01/2017,04/21/2017,03/20 Pneumococcal Conjugate Vacc, 13 Valent (Prevnar) 03/28/2015 Pneumococcal Conjugate Vacci ne, 20-valent ([email or web address]) 04/01/2022 Pneumococcal Polysaccharide PPV23 (Pneumovax) 05/21/2006 Seasonal [...] Date Type Specialty Care Team Description 12/13/2022 Office Visit General Surgery Teresita Padron, PAAvelinoC [address] [place] [address] 12/23/2022 Office Visit Orthopedics Eliezer Gifford, DO [address] [place] [address] 01/03/2023 Office Visit Cardiology Hammad Lopez, DO [address] [place] [address] 01/07/2023 Office Visit Internal Medicine Marcela Pinto MD [address] [facility] [address] Health Maintenance Due Date Last Done Comments Alpha-1 Antitrypsin 1956 Zoster Vaccines (3 of 3) 05/27/2022 04/01/2022, 06/14 COVID-19 Vaccine (5 - Booster for Pfizer series) 06/11/2022 04/16/2022, 08/21/2021, 12/22/2020, Additional history exists Albumin/Creatinine Ratio 02/19/2023 022, 07/09/2019, 07/27/2018, Additional history exists DIABETES-EYE EXAM 03/08/2023 03/08/2022, , 08/07/2020, Additional history exists HgA1C 05/24/2023 11/24/2022, 05/14, 02/19/2022, Additional history exists GFR - Renal Function 06/05/2023 12/06/2022, 12/02/2022, 11/29/2022, Additional history exists CKD PHOS USE SMARTSET 72586 08/05/202307/14, 02/19/2022, 03/09/2021, Additional history exists DIABETES-FOOT EXAM 10/10/2023 10/10/2022, 0 11/19/2021, 12/21/2020, Additional history exists Depression Screening, Annual for Pts 12 and Over 10/10/2023 10/10/2022 O2 ASSESSMENT COMPLETED IN PAST YEAR FOR COPD 11/24/2023 11/24/2022 CKD HGB USE SMARTSET 86591 12/06/202312/06, 12/02/2022, 11/29/2022, Additional history exists DXA Scan 08/08/2025 08/08/2020, [...] group B, 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 (HCC) documented in this encounter Additional Health Concerns Infection Onset Date Last Indicated Resolved Time ESBL Comment:[facility] 2/7 11/19/2022 11/25/2022 documented as of this [...] Advance Directives occurred with: Patient Care Teams Rosin Barrel Filler Relationship Specialty Start Date End Date Marcela Pinto MD [address] [place] [address] [place] [address] PCP - General Internal Medicine 08/04/14 documented as of this encounter
--- OUTSIDE RECORDS SUMMARY | 2023-06-18 02:23 | External Medical Summary ---
Author Name Unknown Address Unknown Organization K0G:[facility] [place] [address] [place] [id number] Laboratory Report Ordering Provider Test Date Status FANG CASSIDY 12/11/2022 05:36:00 Final Observation Date Value Abnormality Reference (Units ) Status WBC, Total 12/11/2022 05:36:00 5.90 4.00-10.8 0 (K/uL) Final RBC 12/11/2022 05:36:00 3.13 3.85-5.15 (M/uL) Final Hemoglobin 12/11/2022 05:36:00 8.7 Below low normal 12 .0-15.3 (g/dL) Final HCT 12/11/2022 05:36:00 29.2 Below low normal 36. 0-45.2 (%) Final MCV 12/11/2022 05:36:00 93.3 81.5-97.5 (fL) Final MCH 12/11/2022 05:36:00 27.8 27.0-34.0 (pg) Final MCHC 12/11/2022 05:36:00 29.8 32.0-36.0 (g/dL) Final RDW 12/11/2022 05:36:00 15.1 11.5-15.5 (%) Final Platelets 12/11/2022 05:36:00 387 140-400 (K /uL) Final MPV 12/11/2022 05:36:00 10.1 6.6-11.1 ( fL) Final [facility] [address] [place] [id number]
--- OUTSIDE RECORDS SUMMARY | 2023-06-18 02:23 | External Medical Summary | Summary of Care ---
Author Name Unknown Organization [place] [address] Care Team Providers Care Tennis Net Maker Name Role Phone Marcela Pinto MD Primary Care Provider + Reason for Visit * Reason Onset Date Comments Skilled Visit 12/09/2022 Encounter Details Date Type Department Care Team Description 12/09/[address] [facility] [address] [place] [address] Mabel aPul PA-C [address] [place] [address] Wound dehiscence*; Type 2 diabetes mellitus with stage 3a chronic kidney disease, without long-term current use of insulin (HCC); Paroxysmal atrial fibrillation (HCC); Chronic kidney disease, stage 3a (HCC); Chronic systolic heart failure (HCC) Allergies Active Allergy Reactions Severity Noted Date Comments Valsartan 07/10/2010 Enalapril 05/21/2006 Escitalopram Oxalate Nausea/vomiting 10/11/2009 Nauseated Iodinated Contrast Media Nausea/vomiting 2009 IV Contrast Iodine Hives 12/18/2009 IV Contrast [place] Oil-Black Currant-Vit E 07/10/2010 Verapamil 03/21/2004 Bupropion Hcl 10/30/2009 Makes pt sick in the stomach documented as of this encounter (statuses as of 12/09/2022) Medications Medication Sig Dispensed Refills Start Date [...] Respimat 1.25 MCG/ACT Inhalation Aerosol Solution (Tiotropium [place] Monohydrate) Inhale 2 Puffs by mouth [...] Oral Tablet Extended Release 24 Hour (toPROL XL)Indications:[facility] Home[facility] akin heart failure with reduced ejection fraction [...] as of this encounter (statuses as of 12/09/2022) Active Problems Problem Noted Date Full code [...] as of this encounter (statuses as of 12/09/2022) Resolved Problems Problem Noted Date Resolved Date [...] Hypoxemia 10/08/2011 10/30/2015 Genetic Sleep Disorder Research Other*[id number] 07/25/2011 05/15/2016 COPD, moderate 07/19/2011 07/28/2019 Overview: [...] as of this encounter (statuses as of 12/09/2022) Immunizations Name Administration Dates Next Due COVID-19 mRNA, LNP-s, No Pre serve, 2-Dose Series ([email or web address]) 08/21/2021,12/22/2020,2020 COVID-19, LNP-s, No Preserve , Tyler-sucrose, Ages 12+ (Pfizer) 04/16/2022 Hepatitis B, 20+ yrs 10/01/2017,04/21/2017,03/20 Pneumococcal Conjugate Vacc, 13 Valent (Prevnar) 03/28/2015 Pneumococcal Conjugate Vacci ne, 20-valent ([id number]) 04/01/2022 Pneumococcal Polysaccharide PPV23 (Pneumovax) 05/21/2006 Seasonal [...] 12/13/2022 Office Visit General Surgery Teresita Padron, PA-C [address] [place] [address] 12/23/2022 Office Visit Orthopedics Eliezer Gifford, DO [address] [place] [address] 01/03/2023 Office Visit Cardiology Hammad Lopez, DO [address] [place] [address] 01/07/2023 Office Visit Internal Medicine Marcela Pinto MD [address] [facility] [place] [address] Health Maintenance Due Date Last Done Comments [...] Additional history exists CKD PHOS USE SMARTSET 35464 08/05/202307/14, 02/19/2022, 03/09/2021, Additional history exists DIABETES-FOOT EXAM 10/10/2023 10/10/2022, 0 11/19/2021, 12/21/2020, Additional history exists Depression Screening, Annual for Pts 12 and Over 10/10/2023 10/10/2022 O2 ASSESSMENT COMPLETED IN PAST YEAR FOR COPD 11/24/2023 11/24/2022 CKD HGB USE SMARTSET 16322 12/06/202312/06, 12/02/2022, 11/29/2022, Additional history exists DXA [...] without long-term current use of insulin (HCC) Paroxysmal atrial fibrillation (HCC) Atrial fibrillation Chronic kidney disease, stage 3a (HCC) Chronic systolic heart failure (HCC) Chronic systolic heart failure documented in this encounter Additional Health Concerns Infection Onset Date Last Indicated Resolved Time ESBL Comment:[facility] 11/1911/19/2022 11/25/2022 documented as of this [...] Advance Directives occurred with: Patient Care Teams Tennis Net Maker Relationship Specialty Start Date End Date Marcela Pinto MD [address] [facility] [facility] [address] [facility] [place] [address] PCP - General Internal Medicine 08/04/14 documented as of this encounter
--- OUTSIDE RECORDS SUMMARY | 2023-06-18 02:23 | External Medical Summary ---
Author Name Unknown Address Unknown Organization K0[facility] [place] [address] [place] [id number] Laboratory Report Ordering Provider Test Date Status FANG CASSIDY 12/11/2022 05:36:00 Final Observation Date Value Abnormality Reference (Units ) Status BUN 12/11/2022 05:36:00 13 6-20 (mg/dL) Final Creatinine 12/11/2022 05:36:00 0.8 0.5-1.0 (mg/dL) Final Glomerular filtration rate/1.73 sq M.predicted [Volume Rate/Area] in Serum, Plasma or Blood by Creatinine-based formula (CKD-EPI) 12/11/2022 05:36:00 70 >=60 (mL/min) Final Performing Location [facility] [employer] [address] [place] [id number]
--- OUTSIDE RECORDS SUMMARY | 2023-06-18 02:23 | External Medical Summary | Summary of Care ---
Author Name Unknown Organization [facility] Address [address] [place] [address] Phone [phone] Care Team Providers Care Scrap Collector Name Role Phone Marcela Pinto MD Primary Care Provider + Encounter Details Date Type Department Care Team Description 12/11/2022 Orders Only Lab Mobile Phlebotomy [facility] [address] [place] [address] Michelle Gallegos MD [address] [place] [address] [place] [address] Type 2 diabetes mellitus with hemoglobin A1c goal of less than 7.5% (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 akin heart failure with reduced ejection fraction [...] Hypoxemia 10/08/2011 10/30/2015 Genetic Sleep Disorder Research Other*[id number] 07/25/2011 05/15/2016 COPD, moderate 07/19/2011 07/28/2019 Overview: [...] mRNA, LNP-s, No Pre serve, 2-Dose Series ([employer]) 08/21/2021,12/22/2020,2020 COVID-19, LNP-s, No Preserve , Tyler-sucrose, Ages 12+ ([employer]) 04/16/2022 Hepatitis B, 20+ yrs 10/01/2017,04/21/2017,03/20 Pneumococcal Conjugate Vacc, 13 Valent (Prevnar) 03/28/2015 Pneumococcal Conjugate Vacci ne, 20-valent ([id number]) 04/01/2022 Pneumococcal Polysaccharide PPV23 (Pneumovax) 05/21/2006 Seasonal [...] Encounters Date Type Specialty Care Team Description 12/11/2022 Laboratory Laboratory Processing [address] [place] [address] Type 2 diabetes mellitus with hemoglobin A1c goal of less than 7.5% (HCC); HTN, goal below 140/90 12/23/2022 Office Visit Orthopedics Eliezer Gifford, DO [address] [place] [address] 01/03/2023 Office Visit Cardiology Hammad Lopez, DO [address] [place] [address] 01/07/2023 Office Visit Internal Medicine Marcela Pinto MD [address] [facility] [place] [address] 01/14/2023 Office Visit General Surgery Teresita Padron, PAAvelinoC [address] [place] [address] Scheduled Orders Name Type Priority Associated Diagnoses Orde r Schedule CBC Lab Routine Type 2 diabetes mellitus with hemoglobin A1c goal of less than 7.5% (HCC) HTN, goal below 140/90 Expected: 12/11/2022, Expires: 12/12/2023 BASIC METABOLIC PANEL Lab Routine Type 2 diabetes mellitus with hemoglobin A1c goal of less than 7.5% (HCC) HTN, goal below 140/90 Expected: 12/11/2022, Expires: 12/12/2023 Health Maintenance Due Date Last Done Comments [...] Additional history exists CKD PHOS USE SMARTSET 08162 08/05/202307/14, 02/19/2022, 03/09/2021, Additional history exists DIABETES-FOOT EXAM 10/10/2023 10/10/2022, 0 11/19/2021, 12/21/2020, Additional history exists Depression Screening, Annual for Pts 12 and Over 10/10/2023 10/10/2022 O2 ASSESSMENT COMPLETED IN PAST YEAR FOR COPD 11/24/2023 11/24/2022 CKD HGB USE SMARTSET 14501 12/06/202312/06, 12/02/2022, 11/29/2022, Additional history exists DXA [...] A1c goal of less than 7.5% (HCC) HTN, goal below 140/90 Unspecified essential hypertension Type 2 diabetes mellitus with hemoglobin A1c goal of less than 7.5% (HCC)- Primary HTN, goal below 140/90 Unspecified essential hypertension documented in this encounter Additional Health Concerns Infection Onset Date Last Indicated Resolved Time ESBL Comment:[facility] 11/1911/19/2022 11/25/2022 documented as of this [...] Advance Directives occurred with: Patient Care Teams Scrap Collector Relationship Specialty Start Date End Date Marcela Pinto MD [address] [facility] [place] [address] PCP - General Internal Medicine 08/04/14 documented as of this encounter
--- OUTSIDE RECORDS SUMMARY | 2023-06-18 02:23 | External Medical Summary | Summary of Care ---
Author Name Unknown Organization [facility] Address [address] [place] [address] Phone [phone] Care Team Providers Care Dietary Supervisor Name Role Phone Marcela Pinto MD Primary Care Provider + Encounter Details Date Type Department Care Team Description 12/11/2022 Orders Only [facility] [address] [place], [place] [id number] Mabel Paul PA-C [address] [place] [address] GENERAL OSTEOARTHROSIS ; Chronic 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); NICM (nonischemic cardiomyopathy) ([facility]); Presence of Watchman left atrial appendage closure device; Hyperlipidemia with target LDL less than 100; Asthma with severity to be determined; COPD, moderate ([facility]); HTN, goal below 140/90; Major depressive disorder with single episode, in partial remission (HCC); HECTOR (generalized anxiety disorder); Chronic constipation; Ischemic colitis (HCC) Allergies Active Allergy Reactions Severity Noted Date Comments Valsartan 07/10/2010 Enalapril 05/21/2006 Escitalopram Oxalate Nausea/vomiting 10/11/2009 Nauseated Iodinated Contrast Media Nausea/vomiting 2009 IV Contrast Iodine Hives 12/18/2009 IV Contrast [place] Oil-Black Currant-Vit E 07/10/2010 Verapamil 03/21/2004 Bupropion [...] scheduled dye 3 Tablet 0 08/21/20 22 Active Promethazine HCl 25 MG Oral Tablet (Phenergan)Indicat ions:Generalized osteoarthritis TAKE 1 TABLET BY MOUTH EVERY 6 HOURS NEEDED FOR NAUSEA 60 Tablet 2 10/18/19 23 Active Alum & Mag Hydroxide-Simeth 400-400-40 MG/5ML Oral Suspension (Mi-Acid II) Take 30 mL by mouth every 4 hours as needed for Indigestion. 355 mL 0 11/11/19 23 Active oxyCODONE HCl 5 MG Oral Tablet (Oxy IR) Take 1 Tablet by mouth every 4 hours as needed for Other (severe incisional pain). 30 Tablet 0 11/26/19 23 Active Acetaminophen 500 MG Oral Tablet [...] EYES 10 mL 4 12/12/19 23 Active Ferrous Sulfate 325 (65 Fe) MG Oral Tablet (Feosol) Take 1 Tablet by mouth in the morning. 30 Tablet 1 12/12/19 23 Active Lumigan 0.01 % Ophthalmic Solution (Bimatoprost) [...] Respimat 1.25 MCG/ACT Inhalation Aerosol Solution (Tiotropium Dawson Monohydrate) Inhale 2 Puffs by mouth in the morning. 4 g 0 12/12/19 23 Active Ventolin HFA 108 (90 Base) MCG/ACT Inhalation Aerosol Solution Inhale 2 Puffs by mouth in the morning and 2 Puffs before bedtime. 18 g 1 12/12/19 23 Active Vitamin D3 50 MCG (2000 UT) Oral Capsule Take 1 Capsule by mouth in the morning. 30 Capsule 5 12/12/19 23 Active Sucralfate 1 GM Oral Tablet (Carafate) Take 1 Tablet by mouth 4 times a day before meals and at bedtime. 120 Tablet 0 12/12/19 23 Active Metoprolol Succinate ER 25 MG Oral Tablet Extended Release 24 Hour (toPROL XL)Indications:Chr onic 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),NICM (nonischemic cardiomyopathy) (HCC),Presence of Watchman left atrial appendage closure device TAKE 1/2 TABLET BY MOUTH EVERY DAY 45 Tablet 3 12/12/19 23 Active methIMAzole 5 MG Oral Tablet (Tapazole) Take 1 Tablet by mouth in the morning. 90 Tablet 1 12/12/19 23 Active Atorvastatin Calcium 40 MG Oral Tablet (Lipitor)Indicatio ns:Hyperlipidemia with target LDL less than 100 Take 1 Tablet by mouth in the morning. 90 Tablet 4 12/12/19 23 Active Furosemide 40 MG Oral Tablet (Lasix) Take 1 Tablet by mouth in the morning and 1 Tablet before bedtime. 180 Tablet 3 12/12/19 23 Active Spironolactone 25 MG Oral Tablet (Aldactone) Take 0.5 Tablets by mouth once a day on Friday, Friday, and Friday only. 45 Tablet 3 12/12/19 23 Active Ipratropium-Albute rol 20-100 MCG/ACT Inhalation Aerosol Solution (Combivent Respimat)Indicatio ns:Asthma with severity to be determined,COPD, moderate ([facility]) TAKE 1 PUFF BY MOUTH 4 TIMES A DAY 12 g 1 12/12/19 23 Active Potassium Chloride Annalisa ER 20 MEQ Oral Tablet Extended Release (Klor-Con M20)Indications:HT N, goal below 140/90 Take 1 Tablet by mouth in the morning. 90 Tablet 3 12/12/19 23 Active Glimepiride 2 MG Oral Tablet (Amaryl) TAKE 1 TABLET BY MOUTH EVERY DAY WITH BREAKFAST 90 Tablet 1 12/12/19 23 Active Ondansetron 8 MG Oral Tablet Disintegrating (Zofran) DISSOLVE 1 TABLET ON TONGUE EVERY 8 HOURS NEEDED FOR NAUSEA 60 Tablet 5 12/12/19 23 Active Sertraline HCl 25 MG Oral Tablet (Zoloft)Indication s:Major depressive disorder with single episode, in partial remission (HCC),HECTOR (generalized anxiety disorder) TAKE 1 TABLET BY MOUTH EVERY DAY IN THE MORNING 90 Tablet 1 12/12/19 23 Active Zafirlukast 20 MG Oral Tablet (Accolate)Indicati ons:Asthma with severity to be determined Take 1 Tablet by mouth in the morning. 90 Tablet 3 12/12/19 23 Active Dicyclomine HCl 20 MG Oral Tablet (Bentyl)Indication s:Chronic constipation Take 1 Tablet by mouth in the morning. 90 Tablet 2 12/12/19 23 Active Ventolin HFA 108 (90 Base) MCG/ACT Inhalation Aerosol Solution Inhale 2 Puffs by mouth in the morning and 2 Puffs before bedtime. 18 g 0 12/12/19 23 Active Albuterol Sulfate (2.5 MG/3ML) 0.083% Inhalation Nebulization Solution (Proventil)Indicat ions:Asthma with severity to be determined,COPD, moderate (HCC) USE ONE NEBULIZER TREATMENT TWICE A DAY DIRECTED FOR WORSENING ASTHMA. J45.909, J44.9 225 mL 1 12/12/19 23 Active Docusate Sodium 100 MG Oral Capsule (Colace) Take 1 Capsule by mouth in the morning. 90 Capsule 0 12/12/19 23 Active Omeprazole 20 MG Oral Capsule Delayed Release (PriLOSEC)Indicati ons:Ischemic colitis (HCC) Take 1 Capsule by mouth in the morning and 1 Capsule before bedtime. 180 Capsule 3 12/12/19 23 Active VITAMIN D 1000 UNITS PO TABS Take 2 Tablets by mouth in the morning. 0 07/27/20 12 023 Discontinued(Me dication/Dose Changed) LUMIGAN 0.01 % OP SOLN INSTILL 1 DROP BY TOPICAL ROUTE EVERY BEDTIME 4 10/29/19 15 023 Discontinued(Re fill) AZOPT 1 % OP SUSP INSTILL 1 DROP BY OPHTHALMIC ROUTE 2 TIMES EVERY DAY INTO BOTH EYES 4 10/29/19 15 023 Discontinued Multiple Vitamins-Minerals (ONE DAILY MULTIVITAMIN WOMEN) TABS one pill each day 0 04/21/20 17 023 Discontinued docusate sodium (COLACE) 100 MG Capsule Take 1 Cap by mouth daily. 90 Cap 0 03/31/20 19 023 Discontinued(Re fill) albuterol sulfate (PROVENTIL) (2.5 MG/3ML) 0.083% nebulizer solutionIndication s:Asthma with severity to be determined,COPD, moderate (HCC) USE ONE NEBULIZER TREATMENT TWICE A DAY DIRECTED FOR WORSENING ASTHMA. J45.909, J44.9 225 mL 1 06/29/20 19 023 Discontinued(Re fill) Albuterol Sulfate (VENTOLIN HFA) 108 (90 Base) MCG/ACT AERS Inhale 2 Puffs by mouth 2 times a day. 0 12/27/19 20 023 Discontinued Aspirin 81 MG Oral Tablet Delayed Release Take 1 Tablet by mouth in the morning. 0 02/06/20 21 023 Discontinued Spiriva Respimat 1.25 MCG/ACT Inhalation Aerosol Solution (Tiotropium Dawson Monohydrate) Inhale 2 Puffs by mouth in the morning. 0 023 Discontinued Dicyclomine HCl 20 MG Oral Tablet (Bentyl)Indication s:Chronic constipation TAKE 1 TABLET BY MOUTH EVERY DAY 90 Tablet 2 03/25/20 22 023 Discontinued(Re fill) Ferrous Sulfate 325 (65 Fe) MG Oral Tablet (Feosol) Take 1 Tablet by mouth in the morning. 0 04/22/20 22 023 Discontinued Zafirlukast 20 MG Oral Tablet (Accolate)Indicati ons:Asthma with severity to be determined TAKE 1 TABLET BY MOUTH EVERY DAY 90 Tablet 3 05/02/20 22 023 Discontinued(Re fill) Sertraline HCl 25 MG Oral Tablet (Zoloft)Indication s:Major depressive disorder with single episode, in partial remission (HCC),HECTOR (generalized anxiety disorder) TAKE 1 TABLET BY MOUTH EVERY DAY IN THE MORNING 90 Tablet 1 06/12/20 22 023 Discontinued(Re fill) Omeprazole 20 MG Oral Capsule Delayed Release (PriLOSEC)Indicati ons:Ischemic colitis (HCC) TAKE 1 CAPSULE BY MOUTH TWICE A DAY 180 Capsule 3 06/14/20 22 023 Discontinued(Re fill) Ondansetron 8 MG Oral Tablet Disintegrating (Zofran) DISSOLVE 1 TABLET ON TONGUE EVERY 8 HOURS NEEDED FOR NAUSEA 60 Tablet 5 06/14/20 22 023 Discontinued(Re fill) Polyethylene Glycol 3350 17 GM Oral Packet (Miralax) Take 1 Packet by mouth 2 times a day as needed for Constipation. 0 023 Discontinued Glimepiride 2 MG Oral Tablet (Amaryl) TAKE 1 TABLET BY MOUTH EVERY DAY WITH BREAKFAST 90 Tablet 1 08/09/20 22 023 Discontinued(Re fill) Magnesium Chloride 64 MG Oral Tablet Delayed Release (Mag-64) Take 1 Tablet by mouth in the morning. 0 07/25/20 22 023 Discontinued Klor-Con M20 20 MEQ Oral Tablet Extended Release (Potassium Chloride Annalisa ER)Indications:HTN , goal below 140/90 TAKE 1 TABLET BY MOUTH EVERY DAY 90 Tablet 3 08/19/20 22 023 Discontinued(Re fill) Ipratropium-Albute rol 20-100 MCG/ACT Inhalation Aerosol Solution (Combivent Respimat)Indicatio ns:Asthma with severity to be determined,COPD, moderate (HCC) TAKE 1 PUFF BY MOUTH 4 TIMES A DAY 12 g 1 09/10/20 22 023 Discontinued(Re fill) Furosemide 40 MG Oral Tablet (Lasix) Take 1 Tablet (40 mg) by mouth in the morning and 1 Tablet (40 mg) before bedtime. 180 Tablet 3 09/11/20 22 023 Discontinued(Re fill) Atorvastatin Calcium 40 MG Oral Tablet (Lipitor)Indicatio ns:Hyperlipidemia with target LDL less than 100 TAKE BY MOUTH 1 TABLET IN THE MORNING. 90 Tablet 4 09/11/20 22 023 Discontinued(Re fill) Spironolactone 25 MG Oral Tablet (Aldactone) Take 0.5 Tablets (12.5 mg) by mouth once a day on Friday, Friday, and Friday only. 45 Tablet 3 09/11/20 22 023 Discontinued(Re fill) methIMAzole 5 MG Oral Tablet (Tapazole) Take 1 Tablet (5 mg) by mouth in the morning. 90 Tablet 1 09/13/20 22 023 Discontinued(Re fill) Metoprolol Succinate ER 25 MG Oral Tablet Extended Release 24 Hour (toPROL XL)Indications:Chr onic 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),NICM (nonischemic cardiomyopathy) (HCC),Presence of Watchman left atrial appendage closure device TAKE 1/2 TABLET BY MOUTH EVERY DAY 45 Tablet 3 09/19/20 22 023 Discontinued(Re fill) Sucralfate 1 GM Oral Tablet (Carafate) Take 1 Tablet by mouth 4 times a day before meals and at bedtime. 120 Tablet 0 11/11/19 23 023 Discontinued(Re fill) guaiFENesin-DM 100-10 MG/5ML Oral Syrup (Robitussin DM) Take 5 mL by mouth every 6 hours. For 3 days then as needed for cough. 120 mL 0 11/28/19 23 023 Discontinued(Me dication/Dose Changed) MEDICAL INSTRUCTIONS Use as directed. Nursing, PT/OT DX: ABDOMINAL INCISION DEHISENCE, CHF, HTN, COPD, CHRONIC RESPIRATORY FAILURE 1 Each 1 12/12/19 23 023 Discontinued(Re fill) Magnesium Chloride 64 MG Oral Tablet Delayed Release (Mag-64) Take 1 Tablet by mouth in the morning. 30 Tablet 1 12/12/19 23 023 Discontinued(Re fill) Polyethylene Glycol 3350 17 GM Oral Packet (Miralax) Take 1 Packet by mouth 2 times a day as needed for Constipation. 60 Each 0 12/12/19 23 023 Discontinued(Re fill) Ferrous Sulfate 325 (65 Fe) MG Oral Tablet (Feosol) Take 1 Tablet by mouth in the morning. 30 Tablet 1 12/12/19 23 023 Discontinued(Re fill) Spiriva Respimat 1.25 MCG/ACT Inhalation Aerosol Solution (Tiotropium Dawson Monohydrate) Inhale 2 Puffs by mouth in the morning. 4 g 0 12/12/19 23 023 Discontinued(Re fill) Aspirin 81 MG Oral Tablet Delayed Release Take 1 Tablet by mouth in the morning. 100 Tablet 0 12/12/19 23 023 Discontinued(Re fill) Ventolin HFA 108 (90 Base) MCG/ACT Inhalation Aerosol Solution Inhale 2 Puffs by mouth in the morning and 2 Puffs before bedtime. 18 g 1 12/12/19 23 023 Discontinued(Re fill) One Daily Multivitamin Women Oral Tablet one pill each day 30 Tablet 0 12/12/19 23 023 Discontinued(Re fill) Lumigan 0.01 % Ophthalmic Solution (Bimatoprost) INSTILL 1 DROP BY TOPICAL ROUTE EVERY BEDTIME 3 mL 4 12/12/19 23 023 Discontinued(Re fill) Vitamin D3 50 MCG (1999 UT) Oral Capsule Take 1 Capsule by mouth in the morning. 30 Capsule 5 12/12/19 23 023 Discontinued(Re fill) Brinzolamide 1 % Ophthalmic Suspension (Azopt) INSTILL 1 DROP BY OPHTHALMIC ROUTE 2 TIMES EVERY DAY INTO BOTH EYES 10 mL 4 12/12/19 23 023 Discontinued(Re fill) MEDICAL INSTRUCTIONS Use as directed. Nursing, PT/OT DX: ABDOMINAL INCISION DEHISENCE, CHF, HTN, COPD, CHRONIC RESPIRATORY FAILURE 1 Each 1 12/12/19 23 023 Discontinued(Re fill) documented as of this encounter (statuses as [...] Hypoxemia 10/08/2011 10/30/2015 Genetic Sleep Disorder Research Other*[id number] 07/25/2011 05/15/2016 COPD, moderate 07/19/2011 07/28/2019 Overview: [...] mRNA, LNP-s, No Pre serve, 2-Dose Series ([employer]) 08/21/2021,12/22/2020,2020 COVID-19, LNP-s, No Preserve , Tyler-sucrose, Ages 12+ (Pfizer) 04/16/2022 Hepatitis B, 20+ yrs 10/01/2017,04/21/2017,03/20 Pneumococcal Conjugate Vacc, 13 Valent (Prevnar) 03/28/2015 Pneumococcal Conjugate Vacci ne, 20-valent ([id number]) 04/01/2022 Pneumococcal Polysaccharide PPV23 (Pneumovax) 05/21/2006 Seasonal [...] General Surgery Teresita Padron PA-C [address] [place] [address] 12/23/2022 Office Visit Orthopedics Eliezer Gifford, DO [address] [place] [address] 01/03/2023 Office Visit Cardiology Hammad Lopez, DO [address] [place] [address] 01/07/2023 Office Visit Internal Medicine Marcela Pinto MD [address] [place], [place] [id number] Health Maintenance Due Date Last Done Comments [...] Additional history exists CKD PHOS USE SMARTSET 89634 08/05/202307/14, 02/19/2022, 03/09/2021, Additional history exists DIABETES-FOOT EXAM 10/10/2023 10/10/2022, 0 11/19/2021, 12/21/2020, Additional history exists Depression Screening, Annual for Pts 12 and Over 10/10/2023 10/10/2022 O2 ASSESSMENT COMPLETED IN PAST YEAR FOR COPD 11/24/2023 11/24/2022 CKD HGB USE SMARTSET 46908 12/12/202312/11, 12/06/2022, 12/02/2022, Additional history exists DXA [...] Diagnosis GENERAL OSTEOARTHROSIS Generalized osteoarthrosis, unspecified site Chronic 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) NICM (nonischemic cardiomyopathy) (HCC) Other primary cardiomyopathies Presence of Watchman left atrial appendage closure device Hyperlipidemia with target LDL less than 100 Other and unspecified hyperlipidemia Asthma with severity to be determined COPD, moderate (HCC) Chronic airway obstruction, not elsewhere classified HTN, goal below 140/90 Unspecified essential hypertension Major depressive disorder with single episode, in partial remission (HCC) HECTOR (generalized anxiety disorder) Generalized anxiety disorder Chronic constipation Unspecified constipation Ischemic colitis (HCC) Unspecified vascular insufficiency of intestine documented in this encounter Additional Health Concerns [...] Advance Directives occurred with: Patient Care Teams Dietary Supervisor Relationship Specialty Start Date End Date Marcela Pinto MD [address] [place] [address] [place] [address] PCP - General Internal Medicine 08/04/14 documented as of this encounter
--- OUTSIDE RECORDS SUMMARY | 2023-06-18 02:23 | External Medical Summary | Summary of Care ---
Author Name Unknown Organization [facility] Address [address] [place] [address] Phone [phone] Care Team Providers Care Pecan Gatherer Name Role Phone Marcela Pinto MD Primary Care Provider + Encounter Details Date Type Department Care Team Description 12/11/2022 Orders Only [facility] [address] [place], [place] [id number] Mabel Paul PA-C [address] [place] [address] Allergies Active Allergy Reactions Severity Noted Date Comments Valsartan 07/10/2010 Enalapril 05/21/2006 Escitalopram Oxalate Nausea/vomiting 10/11/2009 Nauseated Iodinated Contrast Media Nausea/vomiting 2009 IV Contrast Iodine Hives 12/18/2009 IV Contrast [place] Oil-Black Currant-Vit E 07/10/2010 Verapamil 03/21/2004 Bupropion [...] BOTH EYES 10 mL 4 3 Active Ferrous Sulfate 325 (65 Fe) MG Oral Tablet (Feosol) Take 1 Tablet by mouth in the morning. 30 Tablet 1 3 Active Lumigan 0.01 % Ophthalmic Solution [...] Respimat 1.25 MCG/ACT Inhalation Aerosol Solution (Tiotropium [place] Monohydrate) Inhale 2 Puffs by mouth in [...] Oral Tablet Extended Release 24 Hour (toPROL XL)Indications:Piece Jobber akin heart failure with reduced ejection fraction [...] severity to be determined,COPD, moderate ([facility]) TAKE 1 PUFF BY MOUTH 4 [...] RESPIRATORY FAILURE 1 Each 1 3 Active MEDICAL INSTRUCTIONS Use as directed. Nursing, PT/OT DX: ABDOMINAL INCISION DEHISENCE, CHF, HTN, COPD, CHRONIC RESPIRATORY FAILURE 1 Each 1 3 12/12/19 23 Discontinu ed(Refill) documented as of this [...] apnea, obstructive 10/02/2011 Overview: 4 LPM qhs 12/16/11 2 LPM -- low 45%, mean 85%, [...] Hypoxemia 10/08/2011 10/30/2015 Genetic Sleep Disorder Research Other*[id number] 07/25/2011 05/15/2016 COPD, moderate 07/19/2011 07/28/2019 Overview: [...] mRNA, LNP-s, No Pre serve, 2-Dose Series ([employer]) 08/21/2021,12/22/2020,2020 COVID-19, LNP-s, No Preserve , Tyler-sucrose, Ages 12+ (Pfizer) 04/16/2022 Hepatitis B, 20+ yrs 10/01/2017,04/21/2017,03/20 Pneumococcal Conjugate Vacc, 13 Valent (Prevnar) 03/28/2015 Pneumococcal Conjugate Vacci ne, 20-valent ([id number]) 04/01/2022 Pneumococcal Polysaccharide PPV23 (Pneumovax) 05/21/2006 Seasonal [...] General Surgery Teresita Padron PA-C [address] [place] [address] 12/23/2022 Office Visit Orthopedics Eliezer Gifford, DO [address] [place] [address] 01/03/2023 Office Visit Cardiology Hammad Lopez, DO [address] [place] [address] 01/07/2023 Office Visit Internal Medicine Marcela Pinto MD [address] [place] [address] Health Maintenance Due Date Last Done Comments [...] Additional history exists CKD PHOS USE SMARTSET 77795 08/05/202307/14, 02/19/2022, 03/09/2021, Additional history exists DIABETES-FOOT EXAM 10/10/2023 10/10/2022, 0 11/19/2021, 12/21/2020, Additional history exists Depression Screening, Annual for Pts 12 and Over 10/10/2023 10/10/2022 O2 ASSESSMENT COMPLETED IN PAST YEAR FOR COPD 11/24/2023 11/24/2022 CKD HGB USE SMARTSET 23778 12/12/202312/11, 12/06/2022, 12/02/2022, Additional history exists DXA [...] Advance Directives occurred with: Patient Care Teams Pecan Gatherer Relationship Specialty Start Date End Date Marcela Pinto MD [address] [place] [address], [place] [address] PCP - General Internal Medicine 08/04/14 documented as of this encounter
--- OUTSIDE RECORDS SUMMARY | 2023-06-18 02:24 | External Medical Summary | Summary of Care ---
Author Name Unknown Organization [place] [address] Care Team Providers Care Trencher Driver Name Role Phone Marcela Pinto MD Primary Care Provider + Reason for Visit * Reason Onset Date Comments Long-Term Visit 12/03/2022 Encounter Details Date Type Department Care Team Description 11/29/2022 Long-Term Visit [address] [address] Mabel Paul PA-C [address] [place], [place] [id number] Wound dehiscence*; Status post partial resection of colon; COPD, group B, 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 ([facility]); Chronic systolic heart failure ([facility]); Pulmonary HTN ([facility]); Asthma with severity to be determined; Chronic hypoxemic respiratory failure ([facility]); HTN, goal below 140/90; Paroxysmal atrial fibrillation ([facility]); Chronic kidney disease, stage 3a ([facility]); Subclinical hyperthyroidism; History of 2019 novel coronavirus disease (COVID-19); UTI due to extended-spectrum beta lactamase (ESBL) producing Escherichia coli Allergies Active Allergy Reactions Severity Noted Date Comments Valsartan 07/10/2010 Enalapril 05/21/2006 Escitalopram Oxalate Nausea/vomiting 10/11/2009 Nauseated Iodinated Contrast Media Nausea/vomiting 2009 IV Contrast Iodine Hives 12/18/2009 IV Contrast [place] Oil-Black Currant-Vit E 07/10/2010 Verapamil 03/21/2004 Bupropion Hcl 10/30/2009 Makes pt sick in the stomach documented as of this encounter (statuses as of 12/03/2022) Medications Medication Sig Dispensed Refills Start Date [...] Respimat 1.25 MCG/ACT Inhalation Aerosol Solution (Tiotropium [place] Monohydrate) Inhale 2 Puffs by mouth in [...] with severity to be determined,COPD, moderate ([facility]) TAKE 1 PUFF BY MOUTH 4 TIMES [...] Oral Tablet Extended Release 24 Hour (toPROL XL)Indications:Drug Safety Physician akin heart failure with reduced ejection fraction [...] for cough. 120 mL 0 11/28/2022 Active Enoxaparin Sodium 40 MG/0.4ML Injection Solution Prefilled Syringe (Lovenox) Inject 40 mg under the skin in the morning for 5 days. Last dose on 12/04/22.. 2.8 mL 0 11/29/2022 3 Active documented as of this encounter (statuses as of 12/03/2022) Active Problems Problem Noted Date Post-op pain 11/25/2022 UTI due to extended-spectrum [...] as of this encounter (statuses as of 12/03/2022) Resolved Problems Problem Noted Date Resolved Date [...] Hypoxemia 10/08/2011 10/30/2015 Genetic Sleep Disorder Research Other*[id number] 07/25/2011 05/15/2016 COPD, moderate 07/19/2011 07/28/2019 Overview: [...] as of this encounter (statuses as of 12/03/2022) Immunizations Name Administration Dates Next Due COVID-19 mRNA, LNP-s, No Pre serve, 2-Dose Series ([employer]) 08/21/2021,12/22/2020,2020 COVID-19, LNP-s, No Preserve , Tyler-sucrose, Ages 12+ (Pfizer) 04/16/2022 Hepatitis B, 20+ yrs 10/01/2017,04/21/2017,03/20 Pneumococcal Conjugate Vacc, 13 Valent (Prevnar) 03/28/2015 Pneumococcal Conjugate Vacci ne, 20-valent ([id number]) 04/01/2022 Pneumococcal Polysaccharide PPV23 (Pneumovax) 05/21/2006 Seasonal [...] Encounters Date Type Specialty Care Team Description 12/04/2022 Long-Term Visit Family Medicine Michelle Gallegos MD [address] [place] [address] [place] [id number] 12/13/2022 Office Visit General Surgery Teresita Padron, PA-C [address] [place] [address] 12/23/2022 Office Visit Orthopedics Eliezer Gifford, DO [address] [place] [address] 01/03/2023 Office Visit Cardiology Hammad Lopez, DO [address] [place] [address] 01/07/2023 [facility] [address] [facility] Maintenance Due Date Last Done Comments Alpha-1 Antitrypsin 1958 Zoster Vaccines (3 of 3) 05/27/2022 04/01/2022, 06/14 COVID-19 Vaccine (5 - Booster for Pfizer series) 06/11/2022 04/16/2022, 08/21/2021, 12/22/2020, Additional history exists Alb / Creat Ratio 02/19/2023 02/19/2022, , 07/27/2018, Additional history exists DIABETES-EYE EXAM 03/08/2023 03/08/2022, , 08/07/2020, Additional history exists HgA1C 05/24/2023 11/24/2022, 05/14, 02/19/2022, Additional history exists GFR - Renal Function 06/01/2023 12/02/2022, 11/29/2022, 11/28/2022, Additional history exists CKD PHOS USE SMARTSET 28142 08/05/202307/14, 02/19/2022, 03/09/2021, Additional history exists DIABETES-FOOT EXAM 10/10/2023 10/10/2022, 0 11/19/2021, 12/21/2020, Additional history exists Depression Screening, Annual for Pts 12 and Over 10/10/2023 10/10/2022 O2 ASSESSMENT COMPLETED IN PAST YEAR FOR COPD 11/24/2023 11/24/2022 CKD HGB USE SMARTSET 82271 12/02/202312/02, 11/29/2022, 11/28/2022, Additional history exists DXA [...] Primary Disruption of external operation (surgical) wound Status post partial resection of colon Other postprocedural status COPD, group B, 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 (HCC) Chronic systolic heart failure (HCC) Chronic systolic heart failure Pulmonary HTN (HCC) Other chronic pulmonary heart diseases Asthma with severity to be determined Chronic hypoxemic respiratory failure (HCC) Chronic respiratory failure HTN, goal below 140/90 Unspecified essential hypertension Paroxysmal atrial fibrillation (HCC) Atrial fibrillation Chronic kidney disease, stage 3a (HCC) Subclinical hyperthyroidism Thyrotoxicosis without mention of goiter or other cause, without mention of thyrotoxic crisis or storm History of 2019 novel coronavirus disease (COVID-19) UTI due to extended-spectrum beta lactamase (ESBL) producing Escherichia coli documented in this encounter Additional Health Concerns Infection Onset Date Last Indicated Resolved Time ESBL Comment:[facility] 11/1911/19/2022 11/25/2022 documented as of [...] Advance Directives occurred with: Patient Care Teams Trencher Driver Relationship Specialty Start Date End Date Marcela Pinto MD [address] [facility], [place] [phone] PCP - General Internal Medicine 08/04/14 documented as of this encounter
--- OUTSIDE RECORDS SUMMARY | 2023-06-18 02:24 | External Medical Summary | Summary of Care ---
Author Name Unknown Organization [place] [address] Care Team Providers Care Academic Services Coordinator Name Role Phone Marcela Pinto MD Primary Care Provider + Reason for Visit * Auth/Cert Specialty Diagnoses / Procedures Referred By Miguel Angel t Referred To Contact Diagnoses Wound dehiscence wound dehisce Referral ID Status Reason Start Date Expiration Date Visits Re quested Visits Authorized [id number] Encounter Details Date Type Department Care Team Description 11/23/2022 - 11/29/2022 [id number] [address] [place] [address] Renetta Oleary MD [address] [place] [address] Diagnostic Clarification Allergies Active Allergy Reactions Severity Noted Date Comments Valsartan 07/10/2010 Enalapril 05/21/2006 Escitalopram Oxalate Nausea/vomiting 10/11/2009 Nauseated Iodinated Contrast Media Nausea/vomiting 2009 IV Contrast Iodine Hives 12/18/2009 IV Contrast Custer Oil-Black Currant-Vit E 07/10/2010 Verapamil 03/21/2004 Bupropion Hcl 10/30/2009 Makes pt sick in the stomach documented as of this encounter (statuses as of 11/29/2022) Medications Medication Sig Dispensed Refills Start Date End Date Status VITAMIN D 1000 UNITS PO TABS Take 2 Tablets by mouth in the morning. 0 07/27/20 12 Active LUMIGAN 0.01 % OP SOLN INSTILL 1 DROP BY TOPICAL ROUTE EVERY BEDTIME 4 10/29/19 15 Active AZOPT 1 % OP SUSP INSTILL 1 DROP BY OPHTHALMIC ROUTE 2 TIMES EVERY DAY INTO BOTH EYES 4 10/29/19 15 Active oxygen GAS Use 2 L/min(Oxygen) as directed daily. and 4 L/min at night. 0 Active Multiple Vitamins-Minerals (ONE DAILY MULTIVITAMIN WOMEN) TABS one pill each day 0 04/21/20 17 Active docusate sodium (COLACE) 100 MG Capsule Take 1 Cap by mouth daily. 90 Cap 0 03/31/20 19 Active albuterol sulfate (PROVENTIL) (2.5 MG/3ML) 0.083% nebulizer solutionIndication s:Asthma with severity to be determined,COPD, moderate (HCC) USE ONE NEBULIZER TREATMENT TWICE A DAY DIRECTED FOR WORSENING ASTHMA. J45.909, J44.9 225 mL 1 06/29/20 19 Active Albuterol Sulfate (VENTOLIN HFA) 108 (90 Base) MCG/ACT AERS Inhale 2 Puffs by mouth 2 times a day. 0 12/27/19 20 Active Aspirin 81 MG Oral Tablet Delayed Release Take 1 Tablet by mouth in the morning. 0 02/06/20 21 Active Spiriva Respimat 1.25 MCG/ACT Inhalation Aerosol Solution (Tiotropium [place] Monohydrate) Inhale 2 Puffs by mouth in the morning. 0 Active Dicyclomine HCl 20 MG Oral Tablet (Bentyl)Indication s:Chronic constipation TAKE 1 TABLET BY MOUTH EVERY DAY 90 Tablet 2 03/25/20 22 Active Ferrous Sulfate 325 (65 Fe) MG Oral Tablet (Feosol) Take 1 Tablet by mouth in the morning. 0 04/22/20 22 Active Zafirlukast 20 MG Oral Tablet (Accolate)Indicati ons:Asthma with severity to be determined TAKE 1 TABLET BY MOUTH EVERY DAY 90 Tablet 3 05/02/20 22 Active Sertraline HCl 25 MG Oral Tablet (Zoloft)Indication s:Major depressive disorder with single episode, in partial remission (HCC),HECTOR (generalized anxiety disorder) TAKE 1 TABLET BY MOUTH EVERY DAY IN THE MORNING 90 Tablet 1 06/12/20 22 Active Omeprazole 20 MG Oral Capsule Delayed Release (PriLOSEC)Indicati ons:Ischemic colitis (HCC) TAKE 1 CAPSULE BY MOUTH TWICE A DAY 180 Capsule 3 06/14/20 22 Active Ondansetron 8 MG Oral Tablet Disintegrating (Zofran) DISSOLVE 1 TABLET ON TONGUE EVERY 8 HOURS NEEDED FOR NAUSEA 60 Tablet 5 06/14/20 22 Active Polyethylene Glycol 3350 17 GM Oral Packet (Miralax) Take 1 Packet by mouth 2 times a day as needed for Constipation. 0 Active Glimepiride 2 MG Oral Tablet (Amaryl) TAKE 1 TABLET BY MOUTH EVERY DAY WITH BREAKFAST 90 Tablet 1 08/09/20 22 Active Magnesium Chloride 64 MG Oral Tablet Delayed Release (Mag-64) Take 1 Tablet by mouth in the morning. 0 07/25/20 22 Active Klor-Con M20 20 MEQ Oral Tablet Extended Release (Potassium Chloride Annalisa ER)Indications:HTN , goal below 140/90 TAKE 1 TABLET BY MOUTH EVERY DAY 90 Tablet 3 08/19/20 22 Active predniSONE 50 MG Oral Tablet (Deltasone)Indicat ions:Colonic diverticular abscess One tablet 13 hours, 7 hours and 1 hour prior to scheduled dye 3 Tablet 0 08/21/20 22 Active Ipratropium-Albute rol 20-100 MCG/ACT Inhalation Aerosol Solution (Combivent Respimat)Indicatio ns:Asthma with severity to be determined,COPD, moderate (HCC) TAKE 1 PUFF BY MOUTH 4 TIMES A DAY 12 g 1 09/10/20 22 Active Furosemide 40 MG Oral Tablet (Lasix) Take 1 Tablet (40 mg) by mouth in the morning and 1 Tablet (40 mg) before bedtime. 180 Tablet 3 09/11/20 22 Active Atorvastatin Calcium 40 MG Oral Tablet (Lipitor)Indicatio ns:Hyperlipidemia with target LDL less than 100 TAKE BY MOUTH 1 TABLET IN THE MORNING. 90 Tablet 4 09/11/20 22 Active Spironolactone 25 MG Oral Tablet (Aldactone) Take 0.5 Tablets (12.5 mg) by mouth once a day on Friday, Friday, and Friday only. 45 Tablet 3 09/11/20 22 Active methIMAzole 5 MG Oral Tablet (Tapazole) Take 1 Tablet (5 mg) by mouth in the morning. 90 Tablet 1 09/13/20 22 Active Metoprolol Succinate ER 25 MG Oral Tablet Extended Release 24 Hour (toPROL XL)Indications:Chr onic 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),NICM (nonischemic cardiomyopathy) (HCC),Presence of Watchman left atrial appendage closure device TAKE 1/2 TABLET BY MOUTH EVERY DAY 45 Tablet 3 09/19/20 22 Active Promethazine HCl 25 MG Oral Tablet (Phenergan)Indicat ions:Generalized osteoarthritis TAKE 1 TABLET BY MOUTH EVERY 6 HOURS NEEDED FOR NAUSEA 60 Tablet 2 10/18/19 23 Active Alum & Mag Hydroxide-Simeth 400-400-40 MG/5ML Oral Suspension (Mi-Acid II) Take 30 mL by mouth every 4 hours as needed for Indigestion. 355 mL 0 11/11/19 23 Active Sucralfate 1 GM Oral Tablet (Carafate) Take 1 Tablet by mouth 4 times a day before meals and at bedtime. 120 Tablet 0 11/11/19 23 023 Active oxyCODONE HCl 5 MG Oral Tablet [...] hours. 1 Tablet 0 11/27/19 23 Active guaiFENesin-DM 100-10 MG/5ML Oral Syrup (Robitussin DM) Take 5 mL by mouth every 6 hours. For 3 days then as needed for cough. 120 mL 0 11/28/19 23 Active Enoxaparin Sodium 40 MG/0.4ML Injection Solution Prefilled Syringe (Lovenox) Inject 40 mg under the skin in the morning for 5 days. Last dose on 12/04/22.. 2.8 mL 0 11/29/19 23 023 Active oxyCODONE HCl 5 MG Oral Tablet (Oxy IR) Take 1 Tablet by mouth every 4 hours as needed for Pain, Moderate. 20 Tablet 0 11/11/19 23 023 Discontinued Enoxaparin Sodium 40 MG/0.4ML Injection Solution Prefilled Syringe (Lovenox) Inject 40 mg under the skin in the morning for 7 days. Last dose on 12/04/22.. 2.8 mL 0 11/27/19 23 023 Discontinued(Re fill) documented as of this encounter (statuses as of 11/29/2022) Active Problems Problem Noted Date Post-op pain [...] as of this encounter (statuses as of 11/29/2022) Resolved Problems Problem Noted Date Resolved Date [...] Hypoxemia 10/08/2011 10/30/2015 Genetic Sleep Disorder Research Other*[id number] 07/25/2011 05/15/2016 COPD, moderate 07/19/2011 07/28/2019 Overview: [...] as of this encounter (statuses as of 11/29/2022) Immunizations Name Administration Dates Next Due COVID-19 mRNA, LNP-s, No Pre serve, 2-Dose Series (I-lighting) 08/21/2021,12/22/2020,2020 COVID-19, LNP-s, No Preserve , Tyler-sucrose, Ages 12+ (Pfizer) 04/16/2022 Hepatitis B, 20+ yrs 10/01/2017,04/21/2017,03/20 Pneumococcal Conjugate Vacc, 13 Valent (Prevnar) 03/28/2015 Pneumococcal Conjugate Vacci ne, 20-valent ([id number]) 04/01/2022 Pneumococcal Polysaccharide PPV23 (Pneumovax) 05/21/2006 Seasonal [...] Sign Reading Time Taken Comments Blood Pressure 144/71 11/29/2022 8:00 AM EST Pulse 86 11/29/2022 8:00 AM EST Temperature 36.8 C (98.2 F) 11/29/2022 8:00 AM ES T Respiratory Rate 18 11/29/2022 8:00 AM EST Oxygen Saturation 99% 11/29/2022 8:00 AM EST Inhaled Oxygen Concentration - - Weight 91.6 kg (202 lb) 11/23/2022 6:24 PM EST Height 165.1 cm (5' 5") 11/23/2022 6:24 PM EST Body Mass Index 33.61 11/23/2022 6:24 PM EST documented in this encounter Functional Status [...] No 11/23/2022 documented as of this encounter Discharge Summaries * Dori Mccallum MD - 11/29/2022 10:40 AM EST Images from the original note were not included. [address] [address] Admission Date: 11/23/2022 Discharge Date: 11/29/2022 DISCHARGE DIAGNOSES: Active Hospital Problems Diagnosis *Principal Diagnosis - Wound dehiscence Post-op pain Subclinical hyperthyroidism Chronic systolic heart failure (HCC) Gastro-esophageal reflux disease without esophagitis COPD, group B, 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 ([facility]) HECTOR (generalized anxiety disorder) Type 2 diabetes mellitus with hemoglobin A1c goal of less than 7.5% ([facility]) Hyperlipidemia with target LDL less than 100 HTN, goal below 140/90 Asthma with severity to be determined Resolved Hospital Problems No resolved problems to display. Other Significant Diagnoses: none CONDITION ON DISCHARGE: stable Cognition: normal DISPOSITION ON DISCHARGE: rehab: [facility] FOLLOW-UP: Future Appointments Appt Date/Time Provider Department 12/04/2022 8:00 AM Michelle Gallegos MD [facility] 12/13/2022 2:00 PM [facility] 1:30 PM Eliezer Gifford DO Orthopaedics [facility] 01/03/2023 3:30 PM Hammad Lopez DO Cardiology, [facility] 01/07/2023 3:20 PM Marcela Pinto MD General Internal Medicine [facility] Outpatient testing already scheduled: N/A Outpatient testing that needs to be arranged: N/A Inpatient test results pending: N/A MEDICATIONS ON DISCHARGE: MEDICATION UPDATES AT DISCHARGE START taking these medications INSTRUCTIONS Acetaminophen 500 MG Tablet Commonly known as: Tylenol 2 caps every 8 hours for 3 days, then 1 cap every 4 hours as needed for pain. Do not exceed 3000mg acetaminophen (Tylenol) every 24 hours. Enoxaparin 40 MG/0.4ML injection Commonly known as: Lovenox Inject 40 mg under the skin in the morning for 5 days. Last dose on 12/04/22.. guaiFENesin-dm 100-10 MG/5ML syrup Commonly known as: Robitussin DM Take 5 mL by mouth every 6 hours. For 3 days then as needed for cough. CHANGE how you take these medications INSTRUCTIONS oxyCODONE 5 MG immediate release tablet Commonly known as: Oxy IR What changed: reasons to take this Take 1 Tablet by mouth every 4 hours as needed for Other (severe incisional pain). CONTINUE taking these medications INSTRUCTIONS * Albuterol Sulfate (2.5 MG/3ML) 0.083% nebulizer solution Commonly known as: Proventil USE ONE NEBULIZER TREATMENT TWICE A DAY DIRECTED FOR WORSENING ASTHMA. J45.909, J44.9 * Ventolin HFA 108 (90 Base) MCG/ACT Aers Inhale 2 Puffs by mouth 2 times a day. aspirin enteric coated 81 MG Tbec Take 1 Tablet by mouth in the morning. atorvaSTATin 40 MG Tablet Commonly known as: Lipitor TAKE BY MOUTH 1 TABLET IN THE MORNING. dicyclomine 20 MG Tablet Commonly known as: Bentyl TAKE 1 TABLET BY MOUTH EVERY DAY Docusate Sodium 100 MG Capsule Commonly known as: Colace Take 1 Cap by mouth daily. Ferrous Sulfate 325 (65 FE) MG Tablet Commonly known as: Feosol Take 1 Tablet by mouth in the morning. Furosemide 40 MG Tablet Commonly known as: Lasix Take 1 Tablet (40 mg) by mouth in the morning and 1 Tablet (40 mg) before bedtime. Glimepiride 2 MG Tablet Commonly known as: Amaryl TAKE 1 TABLET BY MOUTH EVERY DAY WITH BREAKFAST house antacid 400-400-40 MG/5ML suspension Commonly known as: Mi-Acid II Take 30 mL by mouth every 4 hours as needed for Indigestion. Ipratropium-Albuterol 20-100 MCG/ACT Inhaler Commonly known as: Combivent Respimat TAKE 1 PUFF BY MOUTH 4 TIMES A DAY Klor-Con M20 20 MEQ Tbcr Generic drug: Potassium Chloride ER TAKE 1 TABLET BY MOUTH EVERY DAY Lumigan 0.01 % ophthalmic solution Generic drug: Bimatoprost INSTILL 1 DROP BY TOPICAL ROUTE EVERY BEDTIME magnesium chloride ER 64 MG Tbec Commonly known as: Mag-64 Take 1 Tablet by mouth in the morning. methIMAzole 5 MG Tablet Commonly known as: Tapazole Take 1 Tablet (5 mg) by mouth in the morning. metoprolol succinate XL 25 MG Tb24 Commonly known as: toPROL XL TAKE 1/2 TABLET BY MOUTH EVERY DAY omeprazole 20 MG Cpdr Commonly known as: PriLOSEC TAKE 1 CAPSULE BY MOUTH TWICE A DAY ondansetron ODT 8 MG Tbdp Commonly known as: Zofran DISSOLVE 1 TABLET ON TONGUE EVERY 8 HOURS NEEDED FOR NAUSEA One Daily Multivitamin Women Tabs one pill each day oxygen Gas Use 2 L/min(Oxygen) as directed daily. and 4 L/min at night. Polyethylene Glycol 3350 packet Commonly known as: Miralax Take 1 Packet by mouth 2 times a day as needed for Constipation. predniSONE 50 MG Tabs Tablet Commonly known as: Deltasone One tablet 13 hours, 7 hours and 1 hour prior to scheduled dye promethazine 25 MG Tablet Commonly known as: Phenergan TAKE 1 TABLET BY MOUTH EVERY 6 HOURS NEEDED FOR NAUSEA sertraline 25 MG Tablet Commonly known as: Zoloft TAKE 1 TABLET BY MOUTH EVERY DAY IN THE MORNING Spiriva Respimat 1.25 MCG/ACT Aers Generic drug: Tiotropium [place] Monohydrate Inhale 2 Puffs by mouth in the morning. Spironolactone 25 MG Tablet Commonly known as: Aldactone Take 0.5 Tablets (12.5 mg) by mouth once a day on Friday, Friday, and Friday only. Sucralfate 1 GM Tablet Commonly known as: Carafate Take 1 Tablet by mouth 4 times a day before meals and at bedtime. Vitamin D 1000 units Tablet Take 2 Tablets by mouth in the morning. Zafirlukast 20 MG Tablet Commonly known as: Accolate TAKE 1 TABLET BY MOUTH EVERY DAY * This list has 2 medication(s) that are the same as other medications prescribed for you. Read thedirections carefully, and ask your doctor or other care provider to review them with you. CONTINUE taking these medications but follow up with your Primary Care Physician (PCP). INSTRUCTIONS Azopt 1 % ophthalmic suspension Generic drug: brinZOLamide INSTILL 1 DROP BY OPHTHALMIC ROUTE 2 TIMES EVERY DAY INTO BOTH EYES ALLERGIES: Diovan [valsartan], Enalapril, Escitalopram oxalate, Iodinated contrast media, Iodine, Custer oil-black currant-vit e, Verapamil, and Wellbutrin [bupropion hcl] INSTRUCTIONS: Activity: No lifting or pushing or pulling more than 10 lbs for 6 weeks Diet: normal diet Code status (this admission): Full Code Discussion of adv directives occurred with - adult: Not Discussed due to patient's condition Indwelling devices: none ADMISSION HISTORY & PHYSICAL EXAM (focused): Nina Harrington is a 81 year old, female with PMH significant for COPD, chronic respiratory failure (on 2L NC during day and 4L NC at night), HFrEF, PAF s/p watchman's device placement, and type II DM who presents as direct admit from [facility] for wound dehiscence s/p laparoscopic LAR on 11/01/2022for recurrent diverticulitis and colovesical fistula. Patient was currently admitted to [facility] for respiratory failure due to COVID that has since resolved and she is now back on her baseline 2L NC oxygen requirement. During this admission, her abdominal wound opened and intestines were visualized. She was subsequently transferred to [facility] for surgical management. On exam, patient did not have great understanding of her condition. Endorsed some abdominal pain. Exam Constitutional: no acute distress HEENT: normal: normocephalic, atraumatic; no masses, tenderness, or adenopathy Neck: supple, normal range of motion CV: normal rate, normal rhythm Chest: normal respiratory effort Abdomen: soft, mildly TTP , nondistended, no rebound or guarding, (+) surgical incision open with fascial defect and visualized bowel Skin: warm, dry: Neuro: alert Plan 81 year old female with PMH significant for COPD, chronic respiratory failure (on 2L NC during day and 4L NC at night), HFrEF, PAF s/p watchman's device placement, and type II DM admitted as direct admit for wound dehiscence s/p lap LAR on 11/01/2022 for recurrent diverticulitis with colovesical fistula. - OR for exploratory laparotomy - booked and consented - family called and updated by Dr. Rodriguez - NPO for OR HOSPITAL COURSE (focused): Patient was transferred from outside hospital with concern for fascial dehiscence. Of note, patientwas diagnosed with COVID and had been coughing. After arrival here, she was taken to the OR for fascial closure. Post- operatively, there were no complications. Patient was started on a diet and gradually advanced as tolerated. She began to have bowel function. Patient tolerated adequate po intake, had good pain control and was deemed stable for discharge to rehab on 11/29/22. Patient was provided with the appropriate discharge instructions and advised to follow-up with their primary care physicia n. Patient was also scheduled with a follow-up with Colorectal Surgery clinic. Operations & Procedures: 11/24/22 Exploratory laparotomy, abdominal fascial closure Complications: none significant SIGNIFICANT RESULTS: Vital Signs (last recorded): Most Recent Systolic BP: 144 mmHg (11/29/22 0800) Most Recent Diastolic BP: 71 mmHg (11/29/22799) Pulse: 86 (11/29/22799) Resp: 18 (11/29/22799) Most Recent Temperature: 36.78 C (11/29/22799) Weight: 91.6 kg (202 lb) (11/23/22 1824) SpO2: 99 % (11/29/22799) O2 flow rate: 2 L/MIN (11/29/22799) Labs: CHEMISTRY: BUN, Creatinine, GFR Estimated, Sodium, Potassium, Chloride, Carbon Dioxide, Glucose, Calcium (see below for most recent value): Lab Results Component Value Date/Time BUN 9 11/29/2022 08:04 AM BUN 12 05/27/2020 04:51 PM CREAT 0.7 11/29/2022 08:04 AM CREAT 0.84 08/19/2022 12:00 AM CREAT 1.0 05/27/2020 04:51 PM GFRESTIMATED 50.3 (L) 05/27/2020 04:51 PM NA 138 11/29/2022 08:04 AM NA 140 05/27/2020 04:51 PM POTASSIUM 3.5 11/29/2022 08:04 AM POTASSIUM 3.8 08/19/2022 12:00 AM POTASSIUM 4.0 05/27/2020 04:51 PM CL 100 11/29/2022 08:04 AM CL 97 (L) 05/27/2020 04:51 PM CO2 34 (H) 11/29/2022 08:04 AM CO2 32 05/27/2020 04:51 PM CA 8.7 11/29/2022 08:04 AM CA 10.0 05/27/2020 04:51 PM BLOOD COUNT: WBC, Hgb, Platelets (see below for most recent value): Lab Results Component Value Date/Time WBC 8.89 11/29/2022 08:04 AM WBC 11.86 (H) 05/27/2020 04:51 PM HGB 7.6 (L) 11/29/2022 08:04 AM HGB 9.0 (A) 08/19/2022 12:00 AM HGB 12.3 12/11/2020 05:44 AM HGB 11.4 (L) 05/27/2020 04:51 PM PLT 279 11/29/2022 08:04 AM PLT 435 (H) 05/27/2020 04:51 PM Imaging (focused): N/A CONSULTS ORDERED: ADULT PHYSICAL THERAPY CONSULT IP ADULT OCCUPATIONAL THERAPY CONSULT IP REFERRING PHYSICIAN: Ref: STARCARMENNICOLA ABDI[[id number]] [address] [place] [address] (office) [phone] (fax) PRIMARY CARE PROVIDER: PCP: Marcela Pinto MD [facility] / [facility] [address] (office) [phone] (fax) Note: To contact a physician responsible for this patients hospital care, please call [facility] [phone]. documented in this encounter Discharge Instructions * Discharge Instr - AVS* NIECY Newman - 11/25/2022 6:14 AM EST Discharge Date: 11/29/2022 Check your Patient Education Brochure for further information. You may call Dr. Snyder of the department of Colorectal Surgery at [phone] during business hoursfor any questions or test results. For after-hours emergencies, call [phone] and have the provider forest fire prevention specialist paged. The information below provides you with the instructions and the list of medications you need to betaking following discharge from the hospital. If you have any questions, please ask before leaving.Please carry this letter with you when you see your doctor in the clinic. If you have questions, you can reach us at the numbers above. Brief summary of your inpatient care: You were admitted to [facility] on 11/23/20 for surgical site dehiscence. You had surgery on 11/24/22. You tolerated the operation well, had adequatepain control, and tolerated a diet before discharge. Your primary diagnosis at discharge was surgical site dehiscence. Research has shown that you will have less complications and return to your normal activity level sooner if you follow these simple instructions. Please follow these instructions carefully. Diet: Fiber restricted diet Avoid fiber supplements, whole grains and raw vegetables. A fiber restricted diet reduces the size and number of your stools. No fresh fruit or vegetables. Examples of fiber restricted foods: Refined breads, cereals, crackers, chips and pasta with less than 1 gram of fiber per serving White rice Juices without seeds or pulp Milk, yogurt, pudding, ice cream Cream-based soups and sauces (strained) Tender meat, poultry, fish, eggs Oils (canola, olive, vegetable, etc.) Broth-based soups (strained) Jelly, honey and syrup Activity: Getting up and walking after surgery aids recovery in many ways. Much of the pain after major surgery is from muscle spasm. Getting out of bed, sitting and walking will help you loosen up and actually reduce your pain. This also helps your breathing and quickens the recovery of your bowel function.Walking and using the stairs is permitted. Pace your activities at home. Do not resume driving until you are cleared by your surgeon to do so. You should avoid full activity and vigorous exercise for about six to eight weeks after surgery. No lifting, pushing or pulling more than 10 lbs for 6 weeks. Have a family member or friend available to help you with your daily activities or household preparations. Incisions: Wound care: Loosely pack the wound with corner of 4x4 gauze daily; slightly reduce the amount packed in the wound daily. Cover the wound with dry gauze and dressings as needed. Abdominal binder use at all time except when you shower. You may loosen the abdominal binder as needed when resting in bed or couch. You may shower, but do not scrub vigorously over the incisions. Do not immerse the incision (for example, no swimming, no tub baths, no hot tubs). Do not pick at the wound. Do not apply any ointment or lotion to the incision. Warnings: Once home, call the surgeon promptly if you: Have pain that is getting worse or not improving with medication. Develop a fever above 101 degrees Fahrenheit. Nausea or vomiting (especially if unable to keep liquids down). Have a surgical site that becomes red, warm or has drainage. If you have trouble breathing, feel short of breath or have chest pain, this is a medical emergency, please call 911. Breathing: It is essential for you to continue your deep breathing exercises and to use your incentive spirometer or pillow when you get home. This will continue to help prevent lung problems. Bathing: Do NOT swim in a pool or soak in a bath tub or hot tub for two weeks following your surgery. Gently wash your incision area. Do not scrub the incision site. Bowels: You may have some changes in your bowel habits following your surgery. It is possible that you may have loose stools or constipation. Some of the medications that you are taking or the foods that you eat can cause constipation. If you become constipated, remember to drink plenty of liquids and continue to remain active. You may take a dose of Milk of Magnesia. After a few weeks, your bowel habits should become more regular. Additional Instruction: - You are being discharged with Lovenox for deep vein thrombosis prophylaxis. 1) Tell dentists, surgeons, and other healthcare providers that you use this drug. 2) You may bleed more easily. Avoid injury. Use soft toothbrush, electric razor. 3) Call General Surgery or your primary care physician right away if you have unusual bruising or bleeding 4) Start Lovenox tomorrow. Last dose of Lovenox is on 12/04/22. Date you may return to work or school: N/A Follow up appointment with Teresita Padron PA-C on 12/13/22. Inpatient test results pending: None Operations & Procedures: Exploratory laparotomy, abdominal fascial closure Complications: none Advance Directive Documented: Advance Directive Does the Patient have an Advance Directive? No documented in this encounter Progress Notes * Bryant Bravo DO - 11/25/2022 6:52 AM EST PROGRESS NOTE - Colorectal Surgery [facility]-[address] [address] Name: Nina Harrington Location: [facility] [id number] Date: 11/25/2022 Time: 6:52 AM DIAGNOSIS: Surgical site dehiscence PROCEDURE: Exploratory laparotomy, abdominal fascial closure DATE OF SURGERY: 11/24/2022 POST OP DAY: 0 SUBJECTIVE: Overnight, AF, HDS, VSS Pain well controlled. Tolerating CLD w/o N/V. Sánchez w/ clear yellow urine, 700cc/24h. Last Bowel Movement: ("couple days ago but it wasn't very big") OBJECTIVE: Most Recent Vital Signs: BP: 100 mmHg/70 mmHg (11/25/22 0500) Pulse: 94 (11/25/22 050) Temp: 37.72 C (11/25/22499) Resp: 12 (11/25/22 050) SpO2: 99 % (11/25/22499) Vital Signs Last 24 Hours: Systolic BP: Most Recent Systolic BP Av.4 mmHg Min: 68 mmHg Max: 131 mmHg Temperature: Most Recent Temperature Av.6 C Min: 35.83 C Max: 37.72 C Pulse: Pulse Av.3 Min: 68 Max: 99 Respirations: Resp Av.5 Min: 12 Max: 18 SpO2: SpO2 Av.6 % Min: 97 % Max: 100 % Intake/Output Summary (Last 24 hours) at 11/25/2022 0652 Last data filed at 11/24/2022 2100 Gross per 24 hour Intake 480 ml Output 700 ml Net -220 ml Physical Exam: Constitutional: no acute distress HEENT: normocephalic, atraumatic Eyes: sclera and conjunctiva normal CV: normal rate Chest: normal respiratory effort Abdomen: soft, nondistended, aTTP Extremities: no clubbing, cyanosis, or edema, otherwise grossly normal, warm, and dry Surgical site: midline incision c/d/i with dressing and abdominal binder.Abdomen soft, nontender, nondistended. Skin: warm, dry Neuro: alert, cooperative LABS: Labs reviewed as indicated below: AM labs pending IMAGING: No new imaging post-op Sutures/deann to be removed?: no sutures to be removed Central line to be removed or continued?: patient does not have central venous access Current DVT/PE prophylaxis is?: sequential compression devices (SCD's) and subcutaneous low molecular weight heparin Current stress ulcer prophylaxis is?: diet by mouth Medication administration record reviewed this visit?: yes IMPRESSION: Principal Problem: Wound dehiscence Active Problems: Asthma with severity to be determined HTN, goal below 140/90 Hyperlipidemia with target LDL less than 100 Type 2 diabetes mellitus with hemoglobin A1c goal of less than 7.5% (HCC) HECTOR (generalized anxiety disorder) COPD, group B, 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 (HCC) Gastro-esophageal reflux disease without esophagitis Chronic systolic heart failure (HCC) Subclinical hyperthyroidism Resolved Problems: * No resolved hospital problems. * 81 year old with wound dehiscence and evisceration after laparoscopic LAR on 11/01/2022 for recurrent diverticulitis and colovesical fistula., now s/p ex lap and abdominal closure on 11/24/22 print cutter. PLAN: - advance to regular - Sánchez out today - AROBF - pain/nausea control - Keep abdominal binder in place at all times - Agitation/delirium: will attempt to wean mitts today - Covid+: supportive, added robitussin for cough - SSI - [employer] meds: ordered methimazole, statin, resp meds, PPI, psych meds; holding asa81, bowel reg, vitamins - dispo: med surg Patient seen and discussed with Dr. Little Bravo DO PGY1 General Surgery Resident 11/25/22 Associated attestation - Cristiane Fitch MD - 11/25/2022 5:06 PM EST I saw and evaluated the patient today. I have reviewed the trainee note and agree. Doing ok, still with pain. Will plan to advance diet as tolerated. Will remove dressing tomorrow unless necessary before hand. Cristiane Fitch MD [address] [place] [id number] 11/25/2022 * Mireya Jackson MD - 11/24/2022 5:49 AM EST PROGRESS NOTE - Colorectal Surgery [facility]-[address] [id number] Name: Nina Harrington Location: [facility] B634/[id number] Date: 11/24/2022 Time: 5:49 AM DIAGNOSIS: Surgical site dehiscence PROCEDURE: Exploratory laparotomy, abdominal fascial closure DATE OF SURGERY: 11/24/2022 POST OP DAY: 0 SUBJECTIVE: Pain well controlled. Remains NPO. Afebrile. Mitts placed due to agitation and pulling out her IV. Confused and didn't realize the surgery had happened yet. Cooperative. OBJECTIVE: Most Recent Vital Signs: BP: 99 mmHg/61 mmHg (11/24/22414) Pulse: 104 (11/24/22414) Temp: 36.22 C (11/24/22414) Resp: 16 (11/24/22 0500) SpO2: 100 % (11/24/22414) Vital Signs Last 24 Hours: Systolic BP: Most Recent Systolic BP Av.3 mmHg Min: 90 mmHg Max: 122 mmHg Temperature: Most Recent Temperature Av.4 C Min: 36.22 C Max: 36.72 C Pulse: Pulse Av.7 Min: 71 Max: 113 Respirations: Resp Av.6 Min: 9 Max: 20 SpO2: SpO2 Av.7 % Min: 92 % Max: 100 % Intake/Output Summary (Last 24 hours) at 11/24/2022 0576 Last data filed at 11/24/2022 0400 Gross per 24 hour Intake 850 ml Output 1100 ml Net -250 ml Physical Exam: Constitutional: no acute distress HEENT: normocephalic, atraumatic Eyes: sclera and conjunctiva normal CV: normal rate Chest: normal respiratory effort Abdomen: soft, nondistended, aTTP Extremities: no clubbing, cyanosis, or edema, otherwise grossly normal, warm, and dry Surgical site: midline incision c/d/i with dressing and abdominal binder.Abdomen soft, nontender, nondistended. Skin: warm, dry Neuro: alert, cooperative LABS: Labs reviewed as indicated below: AM labs pending IMAGING: No new imaging post-op Sutures/deann to be removed?: no sutures to be removed Central line to be removed or continued?: patient does not have central venous access Current DVT/PE prophylaxis is?: sequential compression devices (SCD's) and subcutaneous low molecular weight heparin Current stress ulcer prophylaxis is?: diet by mouth Medication administration record reviewed this visit?: yes IMPRESSION: Principal Problem: Wound dehiscence Active Problems: Asthma with severity to be determined HTN, goal below 140/90 Hyperlipidemia with target LDL less than 100 Type 2 diabetes mellitus with hemoglobin A1c goal of less than 7.5% ([facility]) HECTOR (generalized anxiety disorder) COPD, group B, 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 (HCC) Gastro-esophageal reflux disease without esophagitis Chronic systolic heart failure (HCC) Subclinical hyperthyroidism Resolved Problems: * No resolved hospital problems. * 81 year old with wound dehiscence and evisceration after laparoscopic LAR on 11/01/2022 for recurrent diverticulitis and colovesical fistula., now s/p ex lap and abdominal closure on 11/24/22 print cutter. PLAN: - advance to clears - AROBF - pain/nausea control - Keep abdominal binder in place at all times - Agitation/delirium: will attempt to wean mitts today - Covid+: supportive, added robitussin for cough - SSI - [employer] meds: ordered methimazole, statin, resp meds, PPI, psych meds; holding asa81, bowel reg, vitamins - dispo: med surg Patient seen and discussed with Dr. Oleary. Mireya Jackson MD, PGY2 11/24/2022 6:54 AM Associated attestation - Renetta Oleary MD - 11/24/2022 9:36 AM EST I saw and evaluated the patient today. I have reviewed the trainee note and agree. documented in this encounter H&P Notes * Mendoza Rodriguez MD - 11/23/2022 8:01 PM EST HISTORY AND PHYSICAL EXAMINATION - Trauma/Emergency Surgery [facility] [address] Name: Nina Harrington Location: [facility] B634/A Date: 11/23/2022 Time: 8:02 PM PRESENTING PROBLEM: Wound dehiscence HISTORY OF PRESENT ILLNESS: Nina Harrington is a 81 year old, female with PMH significant for COPD, chronic respiratory failure (on 2L NC during day and 4L NC at night), HFrEF, PAF s/p watchman's device placement, and type II DM who presents as direct admit from [facility] for wound dehiscence s/p laparoscopic LAR on 11/01/2022for recurrent diverticulitis and colovesical fistula. Patient was currently admitted to [facility] for respiratory failure due to COVID that has since resolved and she is now back on her baseline 2L NC oxygen requirement. During this admission, her abdominal wound opened and intestines were visualized. She was subsequently transferred to [facility] for surgical management. On exam, patient did not have great understanding of her condition. Endorsed some abdominal pain. HOSPITAL PROBLEM LIST: Principal Problem: Wound dehiscence POA: Yes Active Problems: Asthma with severity to be determined POA: Yes HTN, goal below 140/90 POA: Yes Overview: Per HTN Protocol #27. Hyperlipidemia with target LDL less than 100 POA: Yes Type 2 diabetes mellitus with hemoglobin A1c goal of less than 7.5% ([facility]) POA: Yes HECTOR (generalized anxiety disorder) POA: Yes COPD, group B, 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 ([facility]) POA: Yes Overview: Per COPD GOLD Classification Gastro-esophageal reflux disease without esophagitis POA: Yes Chronic systolic heart failure (HCC) POA: Yes Subclinical hyperthyroidism POA: Yes POA = Present On Admission PAST MEDICAL HISTORY: Past Medical History: Diagnosis Date ACEI/ARB contraindicated Asthma Carpal tunnel syndrome DM type 2, goal: symptom mgmt ([facility]) Generalized osteoarthritis HTN, goal below 140/90 Mixed dyslipidemia PAST SURGICAL HISTORY: Past Surgical History: Procedure Laterality Date APPENDECTOMY W/OTHER PROCEDURE 1960 when removed gall bladder COLONOSCOPY THRU STOMA, W/BIOPSY 03/20/2012 hyperplastic polyps rpt 3 years. COLONOSCOPY, DIAGNOSTIC (RECTUM) 05/29/2016 poor prep, diverticulosis/inpt [facility] COLONOSCOPY, DIAGNOSTIC (RECTUM) 06/05/2017 diverticulosis, repeat 3 yrs/[facility] COLONOSCOPY, DIAGNOSTIC (RECTUM) 02/28/2018 adenomatous polyps, diverticulosis, repeat 3 yrs / [facility] COLONOSCOPY, DIAGNOSTIC (RECTUM) 05/08/2020 inflammatory tissue on bx, diverticulosis / [facility] CYSTOSCOPY/INSERTION OF STENT Bilateral 11/01/2022 CYSTOURETHROSCOPY WITH INSERTION URETERAL STENT DUAL SERVICE performed by Saeed Flores MD at OR [facility] EGD, FLEXIBLE, DIAGNOSTIC 04/29/2014 normal/inpt [facility] EGD, FLEXIBLE, DIAGNOSTIC 05/29/2016 [facility], [facility]ST[facility] 05/08/2020 normal / [facility] EGD, FLEXIBLE,W/ENDOSCOPIC US 11/08/2016 inflammatory changes, stomach lesion, repeat EUS 1.5 yrs/[facility] EGD, FLEXIBLE,W/ENDOSCOPIC US 05/01/2018 stromal cell (smooth muscle) neoplasm, CBD dilation, repeat 2 yrs (needs OV prior)/[facility] EGD, FLEXIBLE,W/ENDOSCOPIC US 09/01/2020 leiomyoma / [facility] INCISIONAL HERNIA REPAIR, LAP, REDUCIBLE 09/29/2012 Repair of incarcerated supraumbilical (incisional) hernia with Atrium mesh 09/29/12 IR ASPIRATION ABSCESS/COLLECTION 07/25/2022 LAPAROSCOPIC PARTIAL COLECTOMY W/COLOPROCTOSTOMY N/A 11/01/2022 LAPAROSCOPIC PARTIAL COLECTOMY WITH COLOPROCTOSTOMY performed by Dionte Snyder MD at OR [facility] LIGATE/CUT OVIDUCT(S) REMOVAL OF TONSILS, AGE 12+ age 11 REMOVE GALLBLADDER 1960 SIGMOIDOSCOPY, DIAGNOSTIC 04/29/2014 stool in rectum/inpt [facility] SMALL BOWEL ENDOSCOPY, REMOVE FOREIGN BODY mesh from prior hernia surgery, wrapped around small bowel. small bowel surgery FAMILY HISTORY: Family History Problem Relation Age of Onset Breast Cancer Mother Heart disease Father No Known Problems Sister COPD Brother COPD Brother COPD Brother Diabetes Aunt (Unspecified) Other (JORDAN) Son not diagnosed Lung Disorder Grandfather (Paternal) ?COPD vs asthma Asthma Daughter SOCIAL HISTORY: 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 Tobacco Use Smoking status: Never Smokeless tobacco: Never Vaping Use Vaping Use: Never used Substance Use Topics Alcohol use: No Drug use: No CURRENT HOSPITAL MEDICATIONS: Note that completed medications (per the MAR) continue to display for 24 hours. Ordered medicationsto be given in the future also display. Current Facility-Administered Medications Medication Dose Route Frequency Provider Acetaminophen (Tylenol) tab 975 mg 975 mg Oral Q6H Tania Reyes MD Albuterol Sulfate (Proventil) (2.5 MG/3ML) 0.083% inhalation solution 2.5 mg 2.5 mg Nebulizer Q4H PRN Renetta Oleary MD [START ON 11/24/2022] atorvaSTATin (Lipitor) tab 40 mg 40 mg Oral Daily(AM) Tania Reyes MD cefOXitin in dextrose (Mefoxin) ivpb 2 g 2 g IV [employer] Counselor Tania Reyes MD dextrose 50 % inj 25 mL 25 mL IV Push PRN Tania Reyes MD dextrose 50 % inj 50 mL 50 mL IV Push PRN Tania Reyes MD [START ON 11/24/2022] Enoxaparin (Lovenox) inj 40 mg 40 mg Subcutaneous Daily 1000 Tania Reyes MD glucagon (Glucagen) inj 1 mg 1 mg Intramuscular PRN Tania Reyes MD Glucose (Glutose 15) 40 % gel 15 g of glucose 15 g of glucose Oral PRN Tania Reyes MD Glucose (Glutose 15) 40 % gel 30 g of glucose 30 g of glucose Oral PRN Tania Reyes MD glucose chew tab 16 g 16 g Oral PRN Tania Reyes MD [START ON 11/24/2022] insulin aspart (NovoLOG) inj Subcutaneous Q6H Tania Reyes MD Ipratropium-Albuterol (Combivent Respimat) inhaler 1 Puff 1 Puff Inhalation Resp QID Tania Reyes MD isolyte-S pH 7.4 infusion Intravenous Continuous Tania Reyes MD [START ON 11/24/2022] methIMAzole (Tapazole) tab 5 mg 5 mg Oral Daily(AM) Tania Reyes MD omeprazole (PriLOSEC) cap 20 mg 20 mg Oral BID(AM/PM) Tania Reyes MD ondansetron ODT (Zofran) tab 4 mg 4 mg On Tongue Q6H PRN Tania Reyes MD Or ondansetron (Zofran) inj 4 mg 4 mg IV Push Q6H PRN Tania Reyes MD oxyCODONE (Oxy IR) tab 5 mg 5 mg Oral Q4H PRN Krunal Forrest MD oxyCODONE (Roxicodone) oral syrup 2.5 mg 2.5 mg Oral Q4H PRN Krunal Forrest MD [START ON 11/24/2022] sertraline (Zoloft) tab 25 mg 25 mg Oral Daily(AM) Tania Reyes MD [START ON 11/24/2022] sodium chloride 0.9 % flush peripheral praveen 3 mL 3 mL IV Push Q Shift Tania Reyes MD [START ON 11/24/2022] Zafirlukast (Accolate) tab 20 mg 20 mg Oral Daily(AM) Tania Reyes MD ALLERGIES: Diovan [valsartan], Enalapril, Escitalopram oxalate, Iodinated contrast media, Iodine, Metoprolol tartrate, Custer oil-black currant-vit e, Verapamil, and Wellbutrin [bupropion hcl] ROS: ROS: As above. All other pertinent system review is negative. PHYSICAL EXAMINATION: Most Recent Vital Signs: BP: 105 mmHg/69 mmHg (11/23/221823) Pulse: 72 (11/23/221823) Temp: 36.5 C (11/23/221823) Resp: 18 (11/23/221823) SpO2: 97 % (11/23/221823) Constitutional: no acute distress HEENT: normal: normocephalic, atraumatic; no masses, tenderness, or adenopathy Neck: supple, normal range of motion CV: normal rate, normal rhythm Chest: normal respiratory effort Abdomen: soft, mildly TTP , nondistended, no rebound or guarding, (+) surgical incision open with fascial defect and visualized bowel Skin: warm, dry: Neuro: alert LABS: Labs reviewed as indicated below: LABS: Lab results within last 7 days (see chart for full results) Units 11/23/222001 WBC K/uL 12.53* HGB g/dL 10.1* PLT K/uL 410* IMAGING: No new imaging IMPRESSION and PLAN: 81 year old female with PMH significant for COPD, chronic respiratory failure (on 2L NC during day and 4L NC at night), HFrEF, PAF s/p watchman's device placement, and type II DM admitted as direct admit for wound dehiscence s/p lap LAR on 11/01/2022 for recurrent diverticulitis with colovesical fistula. - OR for exploratory laparotomy - booked and consented - family called and updated by Dr. 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 Michael Reyes MD General Surgery PGY-1 11/23/2022 8:40 PM I saw and evaluated the patient today. I have reviewed the trainee note and agree. 81 year old female with evisceration after LAR on . OR for ex-lap tonight Family updated by phone documented in this encounter Consult Notes * Sigrid Verma, PT - 11/25/2022 8:28 AM ESTAssociated Order(s): ADULT PHYSICAL THERAPY CONSULT IP GENERAL EVALUATION - Physical Therapy [facility]-[address] [address] Name: Nina Harrington Location: [facility] B634/A Date: 11/25/2022 Time: 1:41 PM Nina Harrington is a/an 81 year old female. Patient Status: Inpatient Insurance: Payor: MEDICARE Plan: MEDICARE A AND B Product Type: *No Product type* Payor: Android App Review Source [place] Plan: Android App Review Source [facility] Product Type: HM Patient Seen: at bedside, nursing cleared patient for therapy Patient Identified By: Name, ID Band and Date Diagnosis: wound dehiscence (11/25/22827) Status of treatment: Evaluation completed (11/25/22827) Orders: PT evaluation and treatment;OOB (11/25/22827) Weight Bearing Status: Weight bearing as tolerated (11/25/22827) Precautions: Alarms;Falls;Oxygen;Safety;Isolation (11/25/22827) Total Treatment Time--free text: 11 (11/25/22827) Past Medical History: Past Medical History: Diagnosis Date ACEI/ARB contraindicated Asthma Carpal tunnel syndrome DM type 2, goal: symptom mgmt (HCC) Generalized osteoarthritis HTN, goal below 140/90 Mixed dyslipidemia Past Surgical History: Past Surgical History: Procedure Laterality Date APPENDECTOMY W/OTHER PROCEDURE 1960 when removed gall bladder COLONOSCOPY THRU STOMA, W/BIOPSY 03/20/2012 hyperplastic polyps rpt 3 years. COLONOSCOPY, DIAGNOSTIC (RECTUM) 05/29/2016 poor prep, diverticulosis/inpt [facility] COLONOSCOPY, DIAGNOSTIC (RECTUM) 06/05/2017 diverticulosis, repeat 3 yrs/[facility] COLONOSCOPY, DIAGNOSTIC (RECTUM) 02/28/2018 adenomatous polyps, diverticulosis, repeat 3 yrs / [facility] COLONOSCOPY, DIAGNOSTIC (RECTUM) 05/08/2020 inflammatory tissue on bx, diverticulosis / [facility] CYSTOSCOPY/INSERTION OF STENT Bilateral 11/01/2022 CYSTOURETHROSCOPY WITH INSERTION URETERAL STENT DUAL SERVICE performed by Saeed Flores MD at OR [facility] EGD, FLEXIBLE, DIAGNOSTIC 04/29/2014 normal/inpt [facility] EGD, FLEXIBLE, DIAGNOSTIC 05/29/2016 [facility], DIAGNOSTIC 05/08/2020 normal / [facility] EGD, FLEXIBLE,W/ENDOSCOPIC US 11/08/2016 inflammatory changes, stomach lesion, repeat EUS 1.5 yrs/[facility] EGD, FLEXIBLE,W/ENDOSCOPIC US 05/01/2018 stromal cell (smooth muscle) neoplasm, CBD dilation, repeat 2 yrs (needs OV prior)/[facility] EGD, FLEXIBLE,W/ENDOSCOPIC US 09/01/2020 leiomyoma / [facility] EXPLORATION OF ABDOMEN N/A 11/23/2022 EXPLORATORY LAPAROTOMY performed by Mendoza Rodriguez MD at OR [facility] EXPLORATION OF ABDOMEN N/A 11/24/2022 EXPLORATORY LAPAROTOMY performed by Mendoza Rodriguez MD at OR [facility] INCISIONAL HERNIA REPAIR, LAP, REDUCIBLE 09/29/2012 Repair of incarcerated supraumbilical (incisional) hernia with Atrium mesh 09/29/12 IR ASPIRATION ABSCESS/COLLECTION 07/25/2022 LAPAROSCOPIC PARTIAL COLECTOMY W/COLOPROCTOSTOMY N/A 11/01/2022 LAPAROSCOPIC PARTIAL COLECTOMY WITH COLOPROCTOSTOMY performed by Dionte Snyder MD at OR [facility] LIGATE/CUT OVIDUCT(S) REMOVAL OF TONSILS, AGE 12+ age 11 REMOVE GALLBLADDER 1960 SIGMOIDOSCOPY, DIAGNOSTIC 04/29/2014 stool in rectum/inpt [facility] SMALL BOWEL ENDOSCOPY, REMOVE FOREIGN BODY mesh from prior hernia surgery, wrapped around small bowel. small bowel surgery Operation: 11/24/22 Exploratory laparotomy, abdominal fascial closure Subjective: Patient agreeable to PT evaluation. 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/Disposition Lives with: Alone (11/25/22814) Assistance available: Yes (11/25/22814) Dwelling type: Single story home (11/25/22814) Entry steps: 4 (11/25/22814) Inside steps: None (11/25/22814) Bedroom location: 1st floor (11/25/22814) Bath location: 1st floor full bath (11/25/22814) Prior Level of Function Reported by: Patient (11/25/22827) Ambulation: Ambulatory without device (11/25/22827) Devices at home: Rolling walker;Straight cane (11/25/22827) Observations Consciousness: Alert (11/25/22827) Orientation: Person;Place;Time (11/25/22827) Psychosocial: Patient can communicate basic needs (11/25/22827) Other Findings: Yes (11/25/22827) Findings: Light touch sensation (11/25/22827) Light Touch Sensation Results: Impaired;LLE;RLE (feet) (11/25/22827) Sitting Posture: Rounded shoulders;Forward head (11/25/22827) Standing Posture: Rounded shoulders;Forward head (11/25/22827) Pain: Patient has complaints of pain. Pain located abdomen. 06/22 Nurse aware. Range of Motion Range of Motion: WFL (bilateral LE) (11/25/22827) Strength Assessment Strength Assessment: (bilateral LE 4/5 except hip flexion 3+/5) (11/25/22827) P.T. Bed Mobility Supine-Sit: Moderate Assistance (11/25/22827) Transfers Sit-Stand: Minimal Assistance (11/25/22827) Stand-Sit: Minimal Assistance (11/25/22827) Ambulation: Distance ambulated (feet): 3 (distance limited by c/o lightheadedness) Assistive Device: Rolling walker Assist: Minimal Assistance Balance Sit (Static): Fair (11/25/22827) Sit (Dynamic): Fair (to Poor +) (11/25/22827) Stand (Static): Poor (+) (11/25/22827) Stand (Dynamic): Poor (+) (11/25/22827) Patient and or Family Goal(s): to get well Patient Education Review of Precautions: Safety;Fall (role of PT) (11/25/22827) Safety Awareness: (requires cues and assistance for safe mobility) (11/25/22827) Preferred learning method: Combination (11/25/22827) Barriers to learning: Medical Status (11/25/22827) Method of Education: Verbalized to patient (11/25/22827) Topic of Education: Safety with mobility, Goals/plan of care, Use of assistive device and Fall prevention Method of Education: Verbal discussion and explanation provided to patient: verbalized understanding and or agreement of this information and needed additional education for safe mobility Treatment Provided: Evaluation Moderate Complexity 11 minutes - [id number]: Patient was alert during treatment session. Moderate complexity evaluation performed and 1-2 personal factors or comorbidities were identified that will impact plan of care, including history of COPD and cardiac history. Patientpresents with limitations in strength, bed mobility, transfers, gait, elevations, balance, endurance and safety, which will impact plan of care. These limitations will be addressed by the goals set for this patient. Alarm Status Patient positioned in: Chair (11/25/22827) With: Pressure pad alarm intact and functioning and call harrison in reach (11/25/22827) Treatment Status: Treatment at bedside (11/25/22827) Goals: Demonstrate Bed Mobility with : Supine to Sit: Modified Independent Sit to supine: Modified Independent Demonstrate Transfers with: Sit to Stand: Modified Independent Stand to Sit: Modified Independent Demonstrate Ambulation: Assistive Device: least restrictive device Distance in feet: 150' Level of Assistance on level surface: Modified Independent Demonstrate Stairclimbing: Number of steps: 4, : Other rail and Level of Assistance: Modified Independent Increase Strength of: bilateral LE by /2 MMT grade above eval Increase Balance: to Fair + throughout Time Frame: 10 visits Assessment: Patient is an 81 y/o female with dx wound dehiscence s/p surgery as noted above. Patient lived at home alone and was independent with mobility prior to her surgery on 11/01/2022. Patient was then at [facility] for rehab prior to this admission. Patient currently requires minimal tomoderate assistance for bed mobility, transfers, and short distance ambulation with rolling walker.Patient c/o lightheadedness with standing. Patient's mobility is currently limited by decreased LE strength, decreased balance, overall medical status with c/o pain, and decreased activity tolerance.Patient would benefit from continued PT to maximize functional independence. Please consider post-ac sun'aq care services which may include home health, correction, outpatient therapy or inpatient rehabilitation. The level of care will be determined in collaboration with patient, family/caregiver and care team members. Deficits requiring P.T. treatment needs: Safety;Mobility;Balance;Weakness;Endurance;Lower extremitystrength (11/25/22827) Treatment Plan: Bed mobility training, Transfer training, Gait training, Elevation training, Strengthening exercises, Balance activities and Educate on safety with functional mobility Anticipated Frequency (on eval): 1 to 3 times per week (11/25/22827) AM PAC Score with Stairs: 16 A portion of this AM-PAC assessment not scored based on functional assessment; rather clinical decision making utilized based on current findings and/or prior level of function. Please refer to future AM-PAC calculations of functional ability as they become available. * Rosa Elena To OT - 11/25/2022 8:15 AM ESTAssociated Order(s): ADULT OCCUPATIONAL THERAPY CONSULT IP GENERAL EVALUATION - Occupational Therapy [facility]-[address] [address] Name: Nina Harrington Location: [facility] B634/A Date: 11/25/2022 Time: 8:15 AM Nina Harrington is a 81 year old female. Patient Status: Inpatient Insurance: Payor: MEDICARE Plan: MEDICARE A AND B Product Type: *No Product type* Payor: Android App Review Source [place] Plan: Android App Review Source [facility] Product Type: HMO Patient Seen: at bedside, nursing cleared patient for therapy Patient Identified By: Name, ID Band and Date Diagnosis: wound dehiscence (11/25/22814) Status of treatment: Evaluation completed (11/25/22814) Orders: OT evaluation and treatment (11/25/22814) Weight Bearing Status: Weight bearing as tolerated (11/25/22814) Precautions: Alarms;Falls;Isolation;Safety (abdominal binder) (11/25/22814) Total Treatment Time: 12 (11/25/22814) Past Medical History: Past Medical History: Diagnosis Date ACEI/ARB contraindicated Asthma Carpal tunnel syndrome DM type 2, goal: symptom mgmt (HCC) Generalized osteoarthritis HTN, goal below 140/90 Mixed dyslipidemia Past Surgical History: Past Surgical History: Procedure Laterality Date APPENDECTOMY W/OTHER PROCEDURE 1959 when removed gall bladder COLONOSCOPY THRU STOMA, W/BIOPSY 03/20/2012 hyperplastic polyps rpt 3 years. COLONOSCOPY, DIAGNOSTIC (RECTUM) 05/29/2016 poor prep, diverticulosis/inpt [facility] COLONOSCOPY, DIAGNOSTIC (RECTUM) 06/05/2017 diverticulosis, repeat 3 yrs/[facility] COLONOSCOPY, DIAGNOSTIC (RECTUM) 02/28/2018 adenomatous polyps, diverticulosis, repeat 3 yrs / [facility] COLONOSCOPY, DIAGNOSTIC (RECTUM) 05/08/2020 inflammatory tissue on bx, diverticulosis / [facility] CYSTOSCOPY/INSERTION OF STENT Bilateral 11/01/2022 CYSTOURETHROSCOPY WITH INSERTION URETERAL STENT DUAL SERVICE performed by Saeed Flores MD at [facility] EGD, FLEXIBLE, DIAGNOSTIC 04/29/2014 normal/inpt [facility] EGD, FLEXIBLE, DIAGNOSTIC 05/29/2016 fundic submucosal mass/inpt [facility] EGD, FLEXIBLE, DIAGNOSTIC 05/08/2020 normal / [facility] EGD, FLEXIBLE,W/ENDOSCOPIC US 11/08/2016 inflammatory changes, stomach lesion, repeat EUS 1.5 yrs/[facility] EGD, FLEXIBLE,W/ENDOSCOPIC US 05/01/2018 stromal cell (smooth muscle) neoplasm, CBD dilation, repeat 2 yrs (needs OV prior)/[facility] EGD, FLEXIBLE,W/ENDOSCOPIC US 09/01/2020 leiomyoma / [facility] EXPLORATION OF ABDOMEN N/A 11/23/2022 EXPLORATORY LAPAROTOMY performed by Mendoza Rodriguez MD at OR [facility] INCISIONAL HERNIA REPAIR, LAP, REDUCIBLE 09/29/2012 Repair of incarcerated supraumbilical (incisional) hernia with Atrium mesh 09/29/12 IR ASPIRATION ABSCESS/COLLECTION 07/25/2022 LAPAROSCOPIC PARTIAL COLECTOMY W/COLOPROCTOSTOMY N/A 11/01/2022 LAPAROSCOPIC PARTIAL COLECTOMY WITH COLOPROCTOSTOMY performed by Dionte Snyder MD at OR [facility] LIGATE/CUT OVIDUCT(S) REMOVAL OF TONSILS, AGE 12+ age 11 REMOVE GALLBLADDER 1960 SIGMOIDOSCOPY, DIAGNOSTIC 04/29/2014 stool in rectum/inpt [facility] SMALL BOWEL ENDOSCOPY, REMOVE FOREIGN BODY mesh from prior hernia surgery, wrapped around small bowel. small bowel surgery 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/Disposition Lives with: Alone (11/25/22814) Assistance available: Yes (11/25/22814) Dwelling type: Single story home (11/25/22814) Entry steps: 4 (11/25/22814) Inside steps: None (11/25/22814) Bedroom location: 1st floor (11/25/22814) Bath location: 1st floor full bath (11/25/22814) Prior Level of Function Reported by: Patient (11/25/22814) Ambulation: Ambulatory without device (but was recently using a rolling walker at [facility] rehab) (11/25/22814) Grooming: Independent (11/25/22814) Bathing: Independent (11/25/22814) Dressing: Independent (11/25/22814) Feeding: Independent (11/25/22814) Toileting: Independent (11/25/22814) Meal Prep: Independent (11/25/22814) Durable Medical Equipment at home: Rolling walker;Straight cane (11/25/22814) Pain: Patient has complaints of pain. Pain located- abdominal pain, /10. Observations Consciousness: Alert (11/25/22814) Orientation: Person;Place;Time (11/25/22814) Psychosocial: Patient can communicate basic needs;Patient can converse in a social setting (11/25/22814) Sitting posture: Forward head;Rounded shoulders (11/25/22814) Standing posture: Forward head;Rounded shoulders (11/25/22814) Safety awareness: The Patient verbalizes insight of current deficits. (11/25/22814) Other Findings Endurance: Fair (11/25/22814) Light touch sensation: LUE;RUE;Intact (11/25/22814) Current Functional Status: Bilateral Upper Extremity Range of Motion: WNL (11/25/22814) Strength Assessment: (4-/5 BUE) (11/25/22814) Self Care Feeding: Supervision (Please comment) (setup) (11/25/22814) Dressing Upper Body: Maximal Assistance (to pj robe) (11/25/22814) Lower Body: Dependent (to pj slipper socks) (11/25/22814) Functional Ambulation Assistive Device: Rolling walker (11/25/22814) Distance in feet:: 3 (11/25/22814) Level of Assistance: Minimal Assistance (11/25/22814) Bed Mobility Supine-Sit: Moderate Assistance (11/25/22814) OT Transfers Sit-Stand: Minimal Assistance (x 2) (11/25/22814) Stand-Sit: Minimal Assistance (11/25/22814) Bed-Chair: Minimal Assistance (11/25/22814) Balance Sit (Static): Fair (11/25/22814) Sit (Dynamic): Fair (11/25/22814) Stand (Static): Fair (11/25/22814) Stand (Dynamic): Poor (+) (11/25/22814) Alarm Status Patient positioned in: Chair (11/25/22814) With: Pressure pad alarm intact and functioning and call harrison in reach (11/25/22814) Following session patient seated OOB in chair with chair alarm activated and cord plugged into callbell system. Patient and Family Goals: to get well Patient Education Education Topic: Role of OT (11/25/22814) Method of Education: Verbalized to patient (11/25/22814) Education Provided to: Patient (11/25/22814) Response to Education: Receptive and agreeable to education (11/25/22814) Barriers to learning: Medical status (11/25/22814) Preferred learning method: Combination (11/25/22814) Treatment Provided: Evaluation Moderate Complexity 12 minutes - 14640: Patient was cooperative and pleasant during treatment session. Moderate complexity evaluation performed and 3-5 activity limitations were identified, including ADL deficit, functional mobility deficit, bed mobility deficit, decreased strength, decreased endurance and impaired balance. Minimal or moderate modification of the functional task was necessary to complete the evaluation. Deficits Requiring O.T. Treatment: Deficits requiring O.T. treatment needs: ADL/self-care;Balance;Endurance;Functional mobility;Safety;Upper extremity strength;Weakness (11/25/22814) Assessment: Patient is an 81 year old female admitted to [facility] on 11/23/22 with Dx of wound dehiscence. Patient lived at home alone and was independent prior to her laparoscopic LAR on 11/01/2022 for recurrent diverticulitis and colovesical fistula. Patient was at [facility] for rehab prior to this admission. Patient demonstrates deficits in self-care, functional transfers/ambulation, bed mobility, balance, bilateral UE strength, and activity tolerance. Patient may benefit from the use of AEto complete LE dressing and bathing. Patient would benefit from continued Occupational Therapy services in order to improve function and maximize independence. Please consider post-acute care services which may include home health, correction, outpatient therapy or inpatient rehabilitation. The level of care will be determined in collaboration with patient, family/caregiver and care team members. Goals: Increase Strength of: bilateral UE 1/2 grade above eval Demonstrates sitting Balance at: Fair+ Demonstrates standing Balance at: Fair+ Demonstrates self care at: modified independent with long handled equipment and appropriate device PRN Demonstrates ability to complete simple homemaking tasks at modified independent with appropriate device PRN Demonstrates Activity Tolerance at 25/25 minutes for functional OT activities Demonstrates Bed Mobility with: modified independent Demonstrates Transfers with: modified independent with appropriate device PRN; supervision for tub/shower transfers Demonstrates Functional Ambulation: Level of Assistance: modified independent with appropriate device PRN Goal Time Frame: 10 visits Treatment Plan: Energy Conservation, Safety, Bed mobility training, Functional Ambulation, Transfertraining, Upper extremity strengthening, Balance activities, ADL training and Endurance Anticipated Frequency (on eval): 1 to 3 times per week (11/25/22814) AM-PAC Help From Another Person Eating Meals: A little (11/25/22814) Help From Another Person Taking Care of Personal Grooming: A little (11/25/22814) Help From Another Person To Put On/Take Off Upper Body Clothing: A lot (11/25/22814) Help From Another Person To Put On/Take Off Lower Body Clothing: Total (11/25/22814) Help From Another Person Toileting: Total (11/25/22814) Help From Another Person Bathing: A lot (11/25/22814) OT AM-PAC Score: 12 (11/25/22814) OT AM-PAC t-Scale Score: 30.6 (11/25/22814) HLM (Highest Level of Mobility) Goal: Level 5 standing (1 or more minutes) (11/24/22938) A portion of this AM-PAC assessment not scored based on functional assessment rather clinical decision making utilized based on current findings and/or prior level of function. Please refer to futureAM-PAC calculations of functional ability as they become available. documented in this encounter Nursing Notes * Kaylene Fregoso RN - 11/29/2022 9:34 AM EST NURSING DISCHARGE PROGRESS NOTE [address] [address] Name: Nina Harrington Location: [facility] B634/A Date: 11/29/2022 Time: 9:34 AM The nursing measures listed below are those which were carried out while the patient was at the facility noted above and are not to be interpreted as physician orders for extended care. ACCOMPANIED BY: ambulance DESTINATION: DISCHARGE NURSE: Kaylene Fregoso RN Height: Height: 165.1 cm (5' 5") (11/23/221823) Weight: Weight: 91.6 kg (202 lb) (11/23/221823) Most Recent Vital Signs: BP: 144 mmHg/71 mmHg (11/29/22799) Pulse: 86 (11/29/22799) Temp: 36.78 C (11/29/22799) Resp: 18 (11/29/22799) SpO2: 99 % (11/29/22799) PAIN LEVEL AT DISCHARGE: Level of Pain: 6/10 Pain Scale Type: [facility] Adult Scale 0-10 Type of Pain: aching Location: abdomen Radiation: N/A Intervention: repositioned for comfort Instructions for Pain Management Post Discharge Given: yes BELONGINGS PRESENT ON DISCHARGE: Patient Belongings at Bedside Belongings at Bedside: None (pt is wearing it) (11/29/22929) Dentures: Lowers (11/29/22929) Patient Belongings Sent to Safe/Locker Belongings Sent to Safe: None (11/29/22929) I verified that all belongings were present at discharge. (Nurse initials - ADRIANO) Medications Brought by Patient?: No (11/29/22929) I verified that all remaining home medications were returned to patient at discharge. (Nurse initials - ADRIANO) HARD COPY OF NARCOTIC PRESCRIPTION SIGNED AND PROVIDED TO PATIENT UPON HOSPITAL DISCHARGE: N/A READMISSION RISK (SCORE): Readmission Risk Score: 32.74 (11/29/22799) RESTRAINTS THIS HOSPITALIZATION: no BEHAVIORAL CONCERNS: none IMMUNIZATIONS GIVEN THIS ADMISSION: none NEUROLOGICAL Terry Coma Scale: Best Verbal Response: Verbally appropriate for age (11/29/22899) Best Motor Response: Obeys commands appropriate for age (11/29/22899) Coma Score: 15 (11/29/22899) Extremity Movement: RLE Motor Strength: 5-Active movement with full resistance (11/29/22899) RUE Motor Strength: 5-Active movement with full resistance (11/29/22899) LLE Motor Strength: 5-Active movement with full resistance (11/29/22899) LUE Motor Strength: 5-Active movement with full resistance (11/29/22899) Pupil Size/Reaction: SEIZURE PRECAUTIONS: no SENSORY DEFICITS: no SPEECH, HEARING, VISION PROBLEMS: Are you deaf or do you have serious difficulty hearing?: No (11/23/221814) Are you blind or do you have serious difficulty seeing, even when wearing glasses?: No (11/23/221814) Is patient non-verbal or have difficulty speaking? no LANGUAGE BARRIER: no FEEDING: independent ORAL HYGIENE: brushes own teeth Functional Bennet Measure (must be completed for all patients on discharge): Feedin = modified dependence Locomotion: 2 = modified dependence Expression: 2 = modified dependence Transfer Mobility/Ambulation Status: 2 = modified dependence Social Interaction: 2 = modified dependence Dressin = modified dependence Hygiene: 2 = modified dependence RESPIRATORY: Discharged with Oxygen: no Ventilator: no Trach/Date of Trach: no CARDIOVASCULAR: (Cardiovascular WNL = Rhythm regular, normal rate per age, normal heart sounds (not accentuated, diminished or split,) no edema, brisk capillary refill, pulses present, no murmur.) Observation WNL = Observation WNL: WNL except for items charted below (11/29/22899) Heart Sounds: S1;S2 (11/29/22899) Rhythm: Regular (11/29/22899) Extremities: +Sensation (11/29/22899) Pulses Right: Dorsalis Pedis +;Radial + (11/29/22899) Pulses Left: Dorsalis Pedis +;Radial + (11/29/22899) Edema: Yes (11/29/22899) Edema Location: Generalized (11/29/22899) Edema Assessment: +1 - Description (11/29/22899) Capillary Refill: 3 sec (11/29/22899) P = palpable D = doppler Carotid Brachial Radial Femoral Dorsalis Pedis Posterior Tibial Popliteal Right P P P Left P P P Intravenous Lines: other - Removed INTEGUMENTARY: Integumentary Observations: incision - Abdomen Wound(s): None MUSCULOSKELETAL: Prosthetic(s): no GI ELIMINATION: (GI WNL = Abdomen flat, soft, no tenderness, symmetrical. Normal active bowel sounds present in all4 quadrants.) Observation WNL: Observation WNL: WNL except for items charted below (11/29/22899) Abdomen: Soft;Non-distended;Tender (11/29/22899) Bowel Sounds: Present (11/29/22899) Last Bowel Movement: 11/29/22 (11/29/22 0418) Ostomy Present: no ELIMINATION: ( WNL = Genitalia intact without discharge, swelling or pain. Urine clear and pale yellow, no foul smell. Continence appropriate for age. No bladder distention - absence of urinary devices - no hemo or peritoneal dialysis.) Observation WNL: Observational WNL: Yes (11/29/22899) Urine Description: Clear;Yellow (11/29/22899) Observational WNL: Yes (11/29/22899) External Male Catheter Output (mL): 100 mL (11/28/22 0000) External Female Catheter External Catheter Status: Changed (11/27/22 1800) Wall Suction (mmHg): 80 (11/26/22899) Securement Method: Securing device (describe) (brief) (11/26/22899) Collection Container: Standard drainage (11/26/22899) Output (mL): 1000 mL (11/27/22603) Ostomy Present: no REPRODUCTIVE: Reproductive/Sexual Concerns: no Drainage: None COPING: Family/Community Support Systems in Place: Yes, Emergency Contact Name: Emergency Contact Number: None Discharge Checklist: Discharge Instructions - Initials: ADRIANO Prescriptions for Controlled Substances: N/A - Initials: ADRIANO Nursing Discharge Assessment - Initials: ADRIANO Most Recent Medication Administration Record (MAR) - Initials: ADRIANO Home Medications Returned: yes, date - 11/29/22 - Initials: ADRIANO POLST Form (if applicable): yes, date - 11/29/22 - Initials: Adriano All IV Fluid sites have been discontinued - yes, date - 11/29/22 - Initials: ADRIANO Lines/Drains/Airways (LDAs) have been completed in flowsheet rows: yes, date - 11/29/22 - Initials: ADRIANO * Svetlana Franco RN - 11/24/2022 3:30 PM EST This morning around 1035 Patient noted to have a low BP as well as was experiencing lightheadednessand dizziness with nausea. Resident forest fire prevention specialist Keysha Pinzon contacted. New orders were placed for 250ml bolus of isolyte. After bolus Bp still low 70/40. Resident came to bedside to evaluate patient, New 750 ml isolyte bolus order placed and repeat labs ordered. Will continue to monitor. * Charles Victoria RN - 11/24/2022 5:11 AM EST Vascular Access Team: Patient currently very limited for PIV placement. Right arm not assessed as it appears to have had a large infiltration recently and is fairly edematous. Left forearm basilic vein completely non-compressible and left forearm cephalic and brachial veins are not large enough foreven a 24g catheter. 22g 1.75in PIV placed with ultrasound in left upper arm cephalic. Bedside nurse aware of limitations and to inform the service. * Kristal Mooney RN - 11/24/2022 4:35 AM EST Post Anesthesia Care Unit Transport Note [address] [address] Dept[address] Nina Ihsan Harrington Transported from [facility] to : [facility] Time: 0410 Care of patient transferred to: [facility] Transported via: Bed Belongings with Patient: Not Applicable Pulse : 104 Temp : 36.2 BP : 99/61 Respirations : 15 Pulse Ox : 100 O2 : 2L nasal cannula SCDS: On and activated * Ida Maguire RN - 11/24/2022 4:29 AM EST Dual Licensed Skin Assessment completed by Ida Maguire RN and Bisi Chapman RN. The patient is/has a N/A Skin Breakdown (includes non blanchable erythema): Yes - Surgical/Procedural changes only. Sacrum intact. Red and slow blanching. Scattered ecchymosis. * Kristal Mooney RN - 11/24/2022 2:59 AM EST PERIOP TO IP HANDOFF COMMUNICATION NOTE [address] [address] Name: Nina Harrington AGE: [age] year old Location: OR [facility]/OR Date: 11/24/2022 Attention to: Katia Report from: Kristal Mooney RN Patient arriving via: Bed Time of call: 0345 Phone Ext: [phone] Reason for SBAR (Situation, Background, Assessment, Recommendation) handoff: Procedure/Diagnostic/Treatment Sending to: BP634 Emotional/Personal Events & Special Needs: elderly Prescriptions in chart: No Code Status: Full Code Discussion of adv directives occurred with - adult: Not Discussed due to patient's condition Safety Concerns: no safety concerns identified Allergies: Diovan [valsartan], Enalapril, Escitalopram oxalate, Iodinated contrast media, Iodine, Metoprolol tartrate, Custer oil-black currant-vit e, Verapamil, and Wellbutrin [bupropion hcl] PMH: Past Medical History: Diagnosis Date ACEI/ARB contraindicated Asthma Carpal tunnel syndrome DM type 2, goal: symptom mgmt (HCC) Generalized osteoarthritis HTN, goal below 140/90 Mixed dyslipidemia PSH: Past Surgical History: Procedure Laterality Date APPENDECTOMY W/OTHER PROCEDURE 1959 when removed gall bladder COLONOSCOPY THRU STOMA, W/BIOPSY 03/20/2012 hyperplastic polyps rpt 3 years. COLONOSCOPY, DIAGNOSTIC (RECTUM) 05/29/2016 poor prep, diverticulosis/inpt [facility] COLONOSCOPY, DIAGNOSTIC (RECTUM) 06/05/2017 diverticulosis, repeat 3 yrs/[facility] COLONOSCOPY, DIAGNOSTIC (RECTUM) 02/28/2018 adenomatous polyps, diverticulosis, repeat 3 yrs / [facility] COLONOSCOPY, DIAGNOSTIC (RECTUM) 05/08/2020 inflammatory tissue on bx, diverticulosis / [facility] CYSTOSCOPY/INSERTION OF STENT Bilateral 11/01/2022 CYSTOURETHROSCOPY WITH INSERTION URETERAL STENT DUAL SERVICE performed by Saeed Flores MD at OR [facility] EGD, FLEXIBLE, DIAGNOSTIC 04/29/2014 normal/inpt [facility] EGD, FLEXIBLE, DIAGNOSTIC 05/29/2016 fundic submucosal mass/inpt [facility] EGD, FLEXIBLE, DIAGNOSTIC 05/08/2020 normal / [facility] EGD, FLEXIBLE,W/ENDOSCOPIC US 11/08/2016 inflammatory changes, stomach lesion, repeat EUS 1.5 yrs/[facility] EGD, FLEXIBLE,W/ENDOSCOPIC US 05/01/2018 stromal cell (smooth muscle) neoplasm, CBD dilation, repeat 2 yrs (needs OV prior)/[facility] EGD, FLEXIBLE,W/ENDOSCOPIC US 09/01/2020 leiomyoma / [facility] INCISIONAL HERNIA REPAIR, LAP, REDUCIBLE 09/29/2012 Repair of incarcerated supraumbilical (incisional) hernia with Atrium mesh 09/29/12 IR ASPIRATION ABSCESS/COLLECTION 07/25/2022 LAPAROSCOPIC PARTIAL COLECTOMY W/COLOPROCTOSTOMY N/A 11/01/2022 LAPAROSCOPIC PARTIAL COLECTOMY WITH COLOPROCTOSTOMY performed by Dionte Snyder MD at OR [facility] LIGATE/CUT OVIDUCT(S) REMOVAL OF TONSILS, AGE 12+ age 11 REMOVE GALLBLADDER 1960 SIGMOIDOSCOPY, DIAGNOSTIC 04/29/2014 stool in rectum/inpt [facility] SMALL BOWEL ENDOSCOPY, REMOVE FOREIGN BODY mesh from prior hernia surgery, wrapped around small bowel. small bowel surgery Isolation: Isolation: Enhanced Droplet with Respirator, Contact Procedure: Exp lap closure of dehiscence Type of Anesthesia: General endotracheal anesthesia Block: none IV intake: 700 mL EBL: OR: 0 mL PACU: 0 mL Urine output: OR 750 mL PACU 50 mL IUBC (Sánchez): Incision location: lower abd Dressing location: lower abd Time of last skin assessment: n/a Pressure injuries or areas of concern: none Lines: Urethral Catheter Non-latex;Silicone (Active) Securement Method Leg strap 11/24/22224 Catheter secured to leg? Yes 11/24/22224 Catheter bag below bladder? Yes 11/24/22224 Collection Container Standard drainage 11/24/22224 Urine Description Yellow 11/24/22224 Number of days: 0 Peripheral Line Hand 20 Gauge (Active) Status Flushes easily;Fluids infusing;Positive blood return 11/24/22 Tubing Changed Yes 11/24/22 Phlebitis Scale 0 11/24/22 Infiltration Scale 0 11/24/22 Site Description (Other) Without redness, swelling or drainage 11/24/22 Site Intervention Flushed 11/24/22 Dressing Assessment Dressing clean, dry, and intact;Transparent dressing 11/24/22 Dressing Intervention None required 11/24/22 Number of days: 1 Vital Signs: BP: 91/68 (11/24/22 0245) Temp: 36.7 C (98.1 F) (11/23/222354) Pulse: 92 (11/24/22244) Resp: 14 (11/24/22244) SpO2: 96 % (11/24/22244) O2 flow rate: 4 L/MIN (11/24/22234) Glucose (Bedside): 146 (11/23/222104) Time of last pain medication: 0044 Med: Fentanyl Time of last antibiotic: 0048 Med: Mefoxin Time of last antiemetic: n/a Med: none ENTREPRENEURIAL FINANCE PROFESSOR: no Drips: no Neurological: Neuro WNL: X - Exceptions to WNL (11/23/221899) Speech: Clear (11/24/22224) Level of Consciousness: Alert (11/24/22224) RUE Motor Strength: 4-Active movement with some resistance (11/24/22224) RLE Motor Strength: 4-Active movement with some resistance (11/24/22224) LUE Motor Strength: 4-Active movement with some resistance (11/24/22224) LLE Motor Strength: 4-Active movement with some resistance (11/24/22224) Coma Score: 15 (11/24/22224) Respiratory: Respiratory WNL: X- Exceptions to WNL (11/24/22224) Cough: Non-Productive (11/24/22224) Depth/Rhythm: Regular (11/24/22224) Dyspnea Occurance: With Exertion (11/23/222354) Effort: Unlabored (11/24/22224) Oxygen therapy/ Mechanical vent O2 flow rate: 4 L/MIN (11/24/22234) Supplemental O2 Delivery: Nasal Cannula (11/24/22234) Cardiac: Observation WNL: No, detailed documentation below (11/24/22224) Heart Sounds: S1;S2 (11/24/22224) Rhythm: Irregular;AFib (11/24/22224) Pulses Right: Dorsalis Pedis +;Radial + (11/24/22224) Pulses Left: Dorsalis Pedis +;Radial + (11/24/22224) Edema: Yes (11/24/22224) Edema Location: Generalized (Edema to right arm 3+) (11/24/22224) Edema Assessment: +1 - Description (11/24/22224) Capillary Refill: 3 sec (11/23/222354) GI: Observation WNL: No, detailed documentation below (11/24/22224) Abdomen: Soft;Tender (11/24/22224) Bowel Sounds: Hypoactive (11/24/22224) : Observational WNL: WNL except for items charted below (11/24/22224) Urine Description: Clear;Yellow (11/24/22224) Urethral Catheter Non-latex;Silicone (Active) Securement Method Leg strap 11/24/22224 Catheter secured to leg? Yes 11/24/22224 Catheter bag below bladder? Yes 11/24/22224 Collection Container Standard drainage 11/24/22224 Urine Description Yellow 11/24/22224 Number of days: 0 Due to Void: N/a sánchez Integumentary:Observation WNL: WNL except for items charted below (11/24/22224) Skin Description: Dry;Warm (11/24/22224) Skin Color: Pale (11/24/22224) Skin Lesion: Ecchymosis (left AC) (11/24/22224) Environment / Interventions: Bed (11/23/222354) Raciel Score (auto-calculation): 18 (11/23/22 1900) Family updated on transfer: unknown to me Additional Assessment Information: none * Kristal Mooney RN - 11/24/2022 2:50 AM EST Dual Licensed Skin Assessment completed by Kristal Mooney . The patient is/has a N/A Skin Breakdown (includes non blanchable erythema): Unable to assess/assessment not completed. Wound Type: Surgical wound abd Wound Ostomy Nurse Notified: No - care per ordered treatment Nursing interventions: turn reposition as needed * Kajal Smiley RN - 11/24/2022 2:02 AM EST 0202 One inch Iodoform packing used to pack abdomen. * Kajal Smiley RN - 11/24/2022 1:32 AM EST 0030 Patient arrived to OR with open abdomen wound. 0130 Abdomen closed, X RAY taken. 0200 Dr. Rebecca Bliss, Radiologist called into OR to confirm no foreign objects found on XRAY. * Monica Cheatham RN - 11/24/2022 12:04 AM EST Dual Licensed Skin Assessment completed by Monica Cheatham and Kristal Mooney. The patient is/has a N/A Skin Breakdown (includes non blanchable erythema): Yes. Wound Type: Moisture associated skin damage/incontinent related skin damage, location pannus- skin sloughing. wound dehiscence abd Wound Ostomy Nurse Notified: Yes - notified via [facility] Nursing interventions: Skin care. * Hans Christy RN - 11/23/2022 6:39 PM EST Dual Licensed Skin Assessment completed by Hans Christy & Rhona Cadena The patient is/has a N/A Skin Breakdown (includes non blanchable erythema): No dehisced abdominal surgical incision heels red but blanchable documented in this encounter OR Notes * OR Surgeon - Mendoza Rodriguez MD - 11/24/2022 2:13 AM EST [facility] [address] [facility] [place] [id number] OPERATIVE REPORT Name: Nina Harrington Date: 11/24/2022 Time: 2:13 AM Location: OR [facility] Service: Emergency General Surgery Date of Operation: 11/24/2022 Pre-op Diagnosis: Surgical site dehiscence Post-op Diagnosis: same Operation: Exploratory laparotomy, abdominal fascial closure Type of Case: Clean contaminated Operative Findings: Opening of anterior abdominal fascia along full incision line prom prior operation, with eviscerated bowel. Surgeon: Mendoza Rodriguez MD Assistants: Eric Griggs MD, Krunal Forrest MD, Tania Reyes MD Anesthesia: General endotracheal anesthesia Drains: none Estimated Blood Loss: 25 ml. IV Fluids: 750 ml. Urine Output: 300mL urine Indications and History: S/p laparoscopic hand assisted LAR 11/01/22 c/b wound breakdown and fascialdehiscence. Operative Detail: Preparation: The patient was brought to the operating room. Patient was identified with 2 forms of identification as Nina Harrington with . Patient was placed in the supine position on the OR table. General anesthesia was provided by the anesthesia team. The abdomen was prepped and draped in the usual sterile fashion. Time out was performed and to verify and confirm correct patient, procedure, site, and additional critical information prior to beginning the procedure. Existing skin excision was lengthened in longitudinal plane to allow wider area of laparotomy for better exploration. No signs of bowel compromise were seen. No fecal spillage, no pus, no murky fluid, or other abnormal or concerning findings seen. Sutures from prior surgery did not hold fascia fromthe top to bottom of prior laparotomy. These prior sutures were removed. Fascial planes were dissect ed from surrounding tissue. 1 PDS suture used to make multiple interrupted figure eight sutures along entire fascial plane. 3-0 vicryl interrupted sutures then Placed to approximate deep subcutaneoustissues in the operative site. The subcutaneous tissues were then copiously irrigated with normal saline. Iodoform antimicrobial packing strip placed into wound bed, and skin loosely stapled on top, as to allow easy removal of packing when necessary. All the instruments, sponge, and needle counts were correct. The patient tolerated the procedure well and was transferred to the post-anesthesia care unit in satisfactory condition. Specimens/Disposition: None Apparent Intraoperative Complications: NONE Patient Condition: good Disposition: Post Anesthesia Care Unit Attestation: Dr Rodriguez was present for the goetz portions of the procedure I saw and evaluated the patient today. I have reviewed the trainee note and agree. A procedure was performed. I was present for entire procedure. I agree with the trainee note. documented in this encounter Miscellaneous Notes * Care Plan - Ruma Smiley RN - 11/29/2022 6:48 AM EST Clinical Goal(s): Patient will remain free from falls or injury (11/28/22 0830) Possible barriers to meeting goal(s)/advancing plan of care: Impaired mobility Stability of the patient: Moderately stable - low risk of patient condition declining or worsening Summary regarding today's goal(s): Met: Patient remained free from falls Recommendations: Continue to encourage ambulation with assistance and implementing fall precautions * Ancillary Progress Note - MONTY Mendes - 11/28/2022 3:17 PM EST ADULT CARE MANAGEMENT - DISCHARGE NOTE [address] [address] Name: Nina Harrington Location: [facility] B634/A Date: 11/28/2022 Time: 3:17 PM The following coordination of care and discharge plan has been coordinated with the care team, patient, family and/or caregiver according to the patients needs and preferences. Discharge Discharge Insurance considerations verified and completed: Yes (11/28/22 1500) Second Notice Important Message from Medicare delivered: Yes (11/28/22 1500) Date Delivered: 11/28/22 (11/28/22 1500) Retain copy in EHR: Yes (11/28/22 1500) Was Caregiver/Family contacted regarding discharge: Yes (11/28/22 1500) Discharge Transportation: BLS (11/28/22 1500) Date of scheduled discharge transportation: 11/29/22 (11/28/22 1500) Time of scheduled discharge transportation: 1030 (11/28/22 1500) Patient declined post-hospital transition of care recommendation: N/A (11/28/22 1500) Final D/C Plan - Complete at time of D/C Final Discharge Plan (Complete only at time of Discharge): SNF (11/28/22 1500) Destination - Admitted Since 11/23/2022 Service Provider Selected Services Address Phone Fax Patient Preferred Last Updated [facility] [place] [address] [place] [address] [phone] -- MONTY Mendes 11/28/2022 1517 Destination - Prior Encounters Includes Destination providers with selected services from prior encounters from 08/25/2022 to 11/28/2022 Discharged on 11/11/2022 Admission date: 10/31/2022 - Discharge disposition: IP Rehab Service Provider Selected Services Address Phone Fax Patient Preferred Last Updated [facility] [address] [place] [phone] -- Mendel Nye RN 11/05/2022 1358 Narrative: Pt to DC to the above SNF on 11/29. Pt's transport to be provided via BLS. CM provided update to pt and pt's daughter, Stephani. Discharge destination time-out called during BOOST rounds, all parties agreeable with transition plan of care. * Ancillary Progress Note - COTY Beatty - 11/28/2022 12:45 PM EST PROGRESS NOTE - Occupational Therapy [facility] [place] [address] Name: Nina Harrington Location: [facility] B634/A Date: 11/28/2022 Time: 12:45 PM Nina Harrington is a 81 year old female. Patient Status: Inpatient Insurance: Payor: MEDICARE Plan: MEDICARE A AND B Product Type: *No Product type* Payor: Android App Review Source EFREN Plan: Android App Review Source [facility] Product Type: HMO Patient Seen: at bedside, nursing cleared patient for therapy Patient Identified By: Name, ID Band and Date Diagnosis: wound dehiscence (11/28/22 1200) Status of treatment: Treatment completed (11/28/22 1200) Orders: OT evaluation and treatment (11/25/22814) Weight Bearing Status: Weight bearing as tolerated (11/28/221199) Precautions: Alarms;Falls;Isolation;Safety (11/28/221199) Total Treatment Time: 24 (11/28/221199) Subjective: I am tired Pain: Patient has complaints of pain. Pain located abdomen. 03/22 Staff Notified Observations Consciousness: Alert (11/28/221199) Orientation: Person;Place;Time (11/28/221199) Psychosocial: Patient can communicate basic needs;Patient can converse in a social setting (11/25/22814) Sitting posture: Forward head;Rounded shoulders (11/25/22814) Standing posture: Forward head;Rounded shoulders (11/25/22814) Safety awareness: The Patient verbalizes insight of current deficits. (11/28/221199) Other Findings Endurance: Fair (11/28/221199) Light touch sensation: LUE;RUE;Intact (11/25/22814) Current Functional Status: Activities of Daily Living: Self Care Feeding: Supervision (Please comment) (setup) (11/25/22814) Grooming: Supervision (Please comment) (11/28/221199) Toileting: Dependent (11/28/221199) Dressing Upper Body: Minimal Assistance (don/doff gown) (11/28/221199) Lower Body: Dependent (socks) (11/28/221199) Functional Ambulation Assistive Device: Rolling walker (11/28/221199) Distance in feet:: 5 (11/28/221199) Level of Assistance: Minimal Assistance (11/28/221199) Bed Mobility Supine-Sit: Minimal Assistance (11/28/221199) OT Transfers Sit-Stand: Minimal Assistance (11/28/221199) Stand-Sit: Minimal Assistance (11/28/221199) Bed-Chair: Minimal Assistance (11/28/221199) Balance Sit (Static): Fair (11/28/221199) Sit (Dynamic): Fair (11/28/221199) Stand (Static): (poor -) (11/28/221199) Stand (Dynamic): (poor +) (11/28/221199) Patient Education Education Topic: Role of OT (11/28/221199) Review of Precautions: Safety;Energy conservation (11/28/221199) Method of Education: Verbalized to patient (11/25/22814) Education Provided to: Patient (11/25/22814) Response to Education: Receptive and agreeable to education (11/25/22814) Barriers to learning: Medical status (11/25/22814) Preferred learning method: Combination (11/28/221199) Alarm Status Patient positioned in: Chair (11/28/221199) With: Pressure pad alarm intact and functioning and call harrison in reach (11/28/221199) Treatment Provided: ADL 14 min, There EX 10 min Upper Extremity exercise Demonstrate Exercises: LUE;RUE;Shoulder;Elbow;Flexion;Extension;Abduction;Adduction;Supination/prona tion;Scapular protraction/retraction (11/28/221199) Peformed in: Seated (11/28/221199) Deficits requiring O.T. treatment needs: ADL/self- care;Balance;Endurance;Functional mobility;Safety;Upper extremity strength;Weakness (11/28/221199) Assessment: Patient tolerated session fair. Patient required minimal assistance for bed mobility and functional transfers. Dependent for lower body dressing. Patient tolerated bilateral UE active range of motion exercises X 12 reps in all planes. Please consider post-acute care services which may include home health, correction, outpatient therapy or inpatient rehabilitation. The level of care will be determined in collaboration with patient, family/caregiver and care team members. Plan: Energy Conservation, Safety, Bed mobility training, Functional Ambulation, Transfer training,ROM exercises: , Upper extremity strengthening, Balance activities: , ADL training and Endurance Anticipated Frequency (on eval): 1 to 3 times per week (11/25/22814) Equipment Equipment used in Therapy: Rolling walker (11/28/221199) AM-PAC Help From Another Person Eating Meals: A little (11/28/221199) Help From Another Person Taking Care of Personal Grooming: A little (11/28/221199) Help From Another Person To Put On/Take Off Upper Body Clothing: A little (11/28/221199) Help From Another Person To Put On/Take Off Lower Body Clothing: Total (11/28/221199) Help From Another Person Toileting: Total (02/16/23 1200) Help From Another Person Bathing: A lot (11/28/22 1200) OT AM-PAC Score: 13 (11/28/22 1200) OT AM-PAC t-Scale Score: 32.03 (11/28/22 1200) HLM (Highest Level of Mobility) Goal: Level 5 standing (1 or more minutes) (11/25/22 1000) A portion of this AM-PAC assessment not scored based on functional assessment due to functional capacity; rather clinical decision making utilized based on current findings and/or prior level of function. Please refer to future AM-PAC calculations of functional ability as they become available. * Care Plan - Tuyet Junior RN - 11/28/2022 3:16 AM EST Clinical Goal(s): Pt will have more tolerable pain control. (11/27/22 2300) Possible barriers to meeting goal(s)/advancing plan of care: Wound not healing Stability of the patient: Moderately stable - low risk of patient condition declining or worsening Summary regarding today's goal(s): Pt remains alert and oriented x 4. Rings for needs. Pain and nausea is almost constant; meds given and pain and nausea return. Abd binder in place. Wound appears held closed by three deann. The bottom half of the wound is approximated but the top half is open with minimal serous drainage in between deann. VSS, afebrile. For discharge tomorrow. Pure wick in place to void, no bm this shift. Accucheck stable. Remain on Contact precautions for ESBL in urine. Recommendations: Continue to monitor labs, vitals and follow pt plan of care. * Diagnostic Clarification - Bryant Bravo DO - 11/27/2022 8:53 AM EST COVID is not a current and active infection for this patient. * Progress Notes - Non-Billable - NIECY Newman - 11/27/2022 8:11 AM EST PROGRESS NOTE - General Surgery Discharge Transition [facility] [address] Name: Nina Harrington Location: [facility] B634/A Date: 11/27/2022 Time: 8:11 AM Admitting Diagnosis: Surgical site dehscence PROCEDURE: 11/24/22 Exploratory laparotomy, abd fascial closure Estimated Discharge Date: 11/27/2022 Subjective: Pt was resting in bed comfortably. On oxygen 2L/min. Has not had breakfast. denied nausea/vomiting. Incisional pain controlled. Voiding without difficulty. Review of Systems: Constitutional: (-) fever chills sweats or weight loss Abdominal/GI: (-) negative: no pain, heartburn, dysphagia, bleeding, change in bowel habits, nauseaor vomiting Most Recent Vital Signs: BP: 131 mmHg/54 mmHg (11/27/22603) Pulse: 83 (11/27/22603) Temp: 36.11 C (11/27/22603) Resp: 16 (11/27/22603) SpO2: 99 % (11/27/22603) Constitutional: no acute distress Abdomen: soft, no tenderness, nondistended Surgical site: incision CDI with deann. Lab and Radiology: Pending results: Pending Lab: CBC, BMp Discharge Preparation: Consultation: No pending consultations to be completed Discharge Medication Plans: Pain Management: oxycodone DVT Needs: lovenox GI: None Antibiotics: None Stool Softener: None Anticipated Diet at Discharge: Low Residue Disposition / Needs Post Discharge: SNF Return Appointments Planned: Surgeon in 2 weeks Reviewed d/c instructions with patient and answered questions patient had. Patient showed understanding and agreed to call if there is any concern. NIECY Brnadon 11/27/2022 8:11 AM * Care Plan - Sumaya Lyons RN - 11/27/2022 3:02 AM EST Clinical Goal(s): Pt's pain level will decrease and she gwen remain safe overnight. (11/26/22 2300) Possible barriers to meeting goal(s)/advancing plan of care: Stability of the patient: Moderately stable - low risk of patient condition declining or worsening Summary regarding today's goal(s): Not Met: Pt with ongoing surgical site/abdominal pain. Given PRN medication for pain and nausea. Recommendations: Continue hourly rounding and plan of care. Monitor pain level. * Ancillary Progress Note - MONTY Mendes - 11/26/2022 9:44 AM EST CARE MANAGEMENT - ADULT TRANSITION NOTE [facility] [address] Name: Nina Harrington Location: [facility] B634/A Date: 11/26/2022 Time: 9:44 AM Prescription Coverage: Yes (11/25/22 1500) Risk Stratification Risk Stratification Medical and Behavioral Health Concerns Identified: N/A (11/25/22 1500) Psycho Social/Care Gaps concerns identified upon admission:: Adjustment to illness/injury () Readmission Risk Score: 30.52 (11/26/22 0800) AM-PAC Score With Stairs : 17 (11/25/22 1000) Caregiver Information Patient Contacts Name Relation Home Work Mobile Stephani Horta Adult Child [phone] Taylor Adasm Adult Child [phone] Kaci Moreno Adult Child [phone] Transition of Care Checklist Transition of Care Checklist (aka Readmission Risk Score) Readmission Risk Score: 30.52 (11/26/22 0800) Narrative: Pt was discussed in BOOST. Pt medically stable for DC, per GAMING DEPARTMENT HEAD pt to come out of covid isolation on this date. CM called and spoke with Jeannie in [facility] admission, planning for DC tomorrow AM. CM faxed updated information to Jeannie. CM to continue to follow and assist as needed. Anticipated Transportation at Discharge: S Patient/Family Expectations: [facility] SNF Transition Planning Additional Considerations: -- Care Management will continue to monitor and assist with discharge planning needs * Progress Notes - Non-Billable - NIECY Newman - 11/26/2022 8:21 AM EST PROGRESS NOTE - General Surgery Discharge Transition [facility] [address] Name: Nina Harrington Location: [facility] B634/A Date: 11/26/2022 Time: 8:22 AM Admitting Diagnosis: Surgical site dehscence PROCEDURE: 11/24/22 Exploratory laparotomy, abd fascial closure Estimated Discharge Date: 11/26/2022 Subjective: Pt was resting in bed comfortably. On oxygen 2L/min. Has not had breakfast. denied nausea/vomiting. Incisional pain controlled. Voiding without difficulty. Had BM yesterday. Review of Systems: Constitutional: (-) fever chills sweats or weight loss Abdominal/GI: (-) negative: no pain, heartburn, dysphagia, bleeding, change in bowel habits, nauseaor vomiting Most Recent Vital Signs: BP: 111 mmHg/58 mmHg (11/26/22442) Pulse: 99 (11/26/22442) Temp: 36 C (11/26/22442) Resp: 20 (11/26/22442) SpO2: 100 % (11/26/22442) Constitutional: no acute distress Abdomen: soft, no tenderness, nondistended Surgical site: incision CDI with deann. Lab and Radiology: Pending results: No results pending Discharge Preparation: Consultation: No pending consultations to be completed Discharge Medication Plans: Pain Management: oxycodone DVT Needs: lovenox GI: None Antibiotics: None Stool Softener: None Anticipated Diet at Discharge: Low Residue Disposition / Needs Post Discharge: SNF Return Appointments Planned: Surgeon in 2 weeks Will follow up for discharge planning. NIECY Brandon 11/26/2022 8:24am oxycodone script signed and placed in pt's chart at the nursing station. NIECY Brandon 11/26/2022 9:01am Pt tolerated cereal for breakfast. NIECY Brandon 11/26/2022 9:58am * Ancillary Progress Note - MONTY Mendes - 11/25/2022 3:31 PM EST POST ACUTE CARE CARE MANAGEMENT [facility] [address] Name: Nina Harrington Location: [facility] B634/A Date: 11/25/2022 Time: 3:31 PM Post-Acute Care Patient General Information Do you have serious difficulty walking or climbing stairs? (5 years old or older): No (11/23/221814) History of falling: No (11/25/22999) What was your living situation prior to admission/observation?: Independently (11/23/221814) Do you have any children, pets, or other dependents that you are currently caring for?: No (11/23/221814) AM-PAC Score With Stairs : 17 (11/25/22 1000) Post-Acute Care with AM-PAC < 17.99 Rehab diagnosis: Does not meet criteria (11/25/221530) Alf Facility (SNF) Guidelines For Medical Approval (must select both): Care must be provided by an RN/CRIME PREVENTION WORKER and cannot be managed at home;Care requires observation, monitoring and evaluation of effectiveness on a daily basis (11/25/221530) SNF guidelines for Rehab Approval (All selections required): Able to participate for at least 1 hour of therapy per day;Requries Training (select at least one);Requires intense care planning with realistic goals as identified by 1 of the following;Established rehabilitative progress;One or more therapy modalities (PT/OT/ST) at least 5 times a week;Services required only able to be provided in an inpatient setting;Frequent re-assessment of established rehabilitative progress;Frequent monitoring and or revision of treatment plan (11/25/221530) Therapy Modalities: Physical Therapy;Occupational Therapy (11/25/221530) Intense Care Plan Goals: Completion of home evaluation, assistance with home modifications;Assistance with application for community services;Coordination of multiple community services;Family medication and/or transfer training (11/25/221530) SNF Required Training: Gait training;ADL training, with or without adaptive equipment;Transfer Training (11/25/221530) Approved for Alf Rehab: Approved for Alf Rehab (11/25/221530) Pt to DC to [facility] once medically stable for DC. * Ancillary Progress Note - MONTY Mendes - 11/25/2022 3:26 PM EST CARE MANAGEMENT - ADULT INITIAL SCREENING [address] [address] Name: Nina Harrington Location: [facility] B634/A Date: 11/25/2022 Time: 3:26 PM Patient Class: Inpatient (11/25/221499) Discussed patient with the interdisciplinary care team. This Hospital Supervisor performed a chart review and met with patient at bedside to complete admission screen and assessed needs for transition planning. The career developer role and services were explained and emotional support was provided. 30 Day Readmission Screening 30 Day Readmission Readmission within 30 days?: Yes, the previous hospital stay was at [facility] (11/25/221499) Where were you readmitted from?: Acute Rehab (11/25/221499) Did you have any difficulty obtaining your prescriptions/medicines when you left the hospital?: No (11/25/221499) Did you take ALL of your medicines, as directed?: Yes (11/25/221499) Chief Complaint: No chief complaint on file. Prior Living Arrangements What was your living situation prior to admission/observation?: Independently (11/23/221814) Do you have any children, pets, or other dependents that you are currently caring for?: No (11/23/221814) Do you have serious difficulty walking or climbing stairs? (5 years old or older): No (11/23/221814) History of falling: No (11/25/22999) Prior Level of Functioning Describe the patient's ability prior to admission/observation to perform ADLs: Performs independently (11/23/221814) Describe the patient's mobility status prior to admission: Patient ambulates independently (11/25/221499) Patient uses assistive device: Yes (11/23/221814) If yes, choose:: Cane;Walker (sometimes) (11/23/221814) Caregiver Information Patient Contacts Name Relation Home Work Mobile Stephani Horta Adult Child [phone] Taylor Adams Adult Child [phone] Kaci Moreno Adult Child [phone] Risk Stratification/Psychosocial/Care Gaps Risk Stratification Medical and Behavioral Health Concerns Identified: N/A (11/25/221499) Psycho Social/Care Gaps concerns identified upon admission:: Adjustment to illness/injury () Readmission Risk Score: 34.22 (11/25/22 1200) AM-PAC Score With Stairs : 17 (11/25/22 1000) Comments: THADDEUS met with pt, pt DC'd from [facility] on 11/10 to [facility]. CM spoke with Liliana at [facility], she states ptwas not done with therapy and can return back if pt is agreeable. THADDEUS performed chart review and pt was getting set up to transition to [facility] to continue rehab, THADDEUS spoke with Jeannie in admissions.Jeannie requested CM fax pt information to ([phone]). CM met with pt and inquired if pt would like to return to [facility] vs. [facility], pt at this time does not want to return to [facility] and agreeable to DC to [facility]. CM to continue to follow and assist as needed. Prior to Admission Services Services Prior to Admission [employer] Services (Services received within the last 30 days with exception, Psych within last two years): Acute Inpatient Rehab (11/25/221499) List All Provider/Service Name: Sourav MARQUEZ (11/25/221499) Agency contacted: Yes (11/25/221499) Spoke with - Comment: Liliana (11/25/221499) [place] Dept[employer] Aging (PDA) Waiver Program: N/A (11/25/221499) Outpatient Hospital Supervisor: no, not applicable Patient/Family Expectations: [place] Anticipated Disposition Plan & Post Acute Needs Anticipated Plan Anticipated D/C disposition per abbreviated screening: Post hospitalization needs identified, continue to monitor for transition planning (02/13/23 1500) Anticipated Post-Acute Care needs identified: Occupational Therapy;Physical Therapy (11/25/22 1500) For further screening information, please refer to the Care Management flow document. 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 Weight down from last admission, noted with COVID 19 and [facility]. [facility] and was given Boost glucose control, will provide this admission Anthropometrics Measurements Admission weight (for dietitians): 91 kg Height: 165.1 cm (5' 5") (11/23/221823) Weight: 91.6 kg (202 lb) (11/23/221823) BMI: 33.61 (11/23/221823) Usual Body Weight: 96 kg Diet History: Previously followed diet: Regular Food Allergies/Intolerances: Supplements (salmon oil, black currant oil, Vitamin E) Current Diet/Supplements: Diet: Fiber Restricted Oral Nutrition Supplement (ONS): None Pertinent medications/vitamins/minerals/supplements: Isolyte-S infusion, NovoLOG, Prilosec, RISK FACTORS: Adult Energy Intake: No significant decrease Interpretation of Weight Change: 5% weight loss in 1 month (Moderate) Skin: Intact - wound dehiscence repaired in OR 11/24/22 NUTRITION RISK CATEGORY: Nutrition Risk Category: Low/Moderate (0-1 factors) Clinical Nutrition Recommendations: Diet: Continue current nutrition plan NUTRITION INTERVENTION/PLAN: Orders: Oral nutrition supplement added Boost Breeze (1 cup provides 250 calories, 9 grams protein,54 grams carbohydrate, 12 mcg vitamin K) BID Will follow and adjust nutritional plan as medical condition requires. Please contact for change(s)in patient condition requiring earlier intervention. Julita PARKER [facility] Clinical Nutrition Services [place] Text / x [phone] * Respiratory Progress Note - Elyse Marquez, PHYSICAL THERAPY ATTENDANT - 11/23/2022 8:03 PM EST PATIENT DRIVEN PROTOCOL - Respiratory Care Services [address] [address] Name: Nina Harrington Location: [facility] B634/A Date: 11/23/2022 Time: 8:03 PM Patient Driven Protocol Summary: Initial evaluation performed. This Treatment Plan and medications will be reviewed by the Primary Care Team for any contraindications. Respiratory Care Treatment Plan Aerosol Therapy Treatment:: Hand Held Nebulizer Tx PRN with Albuterol Sulfate: Unit dose 0.083%. to reduce work of breathing and improve pulmonary gas exchange. Additional Aerosolized Treatments: Inhaler(s) QID with Combivent Respimat: (20mcg Ipratrpium [place] and 100mcg Albuterol) / 1 puff. to reduce work of breathing and improve pulmonary gas exchange. . Pulmonary Volume Expansion Therapy: Incentive Spirometry PRN to prevent or treat alveolar consolidation and atelectasis. . Secretion Management Treatment: Flutter TherapyPRN to enhance mobilization of secretions. . The patient will be re-evaluated: No re-evaluation needed. Indications for treatment met. The Triage Level is: (Assessment Score = 0 - 5) Level 5. Triage Level Definitions: Level 1 Severe Respiratory/Airway Compromise Level 2 Moderate Respiratory/Airway Compromise or high risk for pulmonary complications Level 3 Mild Respiratory/Airway Compromise or moderate risk for pulmonary complications Level 4 Episodic Respiratory/Airway Compromise or low risk for pulmonary complications Level 5 No Respiratory/Airway Compromise Triage 1 Triage 2 Triage 3 Triage 4 Triage 5 greater than 20 16 - 20 11 - 15 6 - 10 0 - 5 Medical Record Assessment Clinical Findings Pulmonary Status: 0 - No History Surgical Status: 0 - No Surgical History Chest X-Ray: 0 - Not Performed or performed greater than 3 days ago Assessment Score: 0 Patient Assessment Clinical Findings Respiratory Pattern: 0 - RR 12 - 20; Patient only gets breathless with strenuous exercise. Breath Sounds: 0 - Clear to auscultation Cough Effectiveness: 0 - Strong non-productive Sputum Production: 0 - No sputum production Level of Activity: 1 - Ambulatory with assist O2 needed to keep SpO2 greater than or equal to 92%: 1 - Oxygen 1-3 LPM or FiO2 less than 35% Assessment Score: 2 Total Assessment Score: 2 Breath Sounds: Inspiratory and expiratory clear bilaterally.. Cough and Sputum: No cough was present.. CXR: none current. Vital Signs: Resp: 18 (11/23/221823) Pulse: 72 (11/23/221823) Temp: 36.5 C (97.7 F) (11/23/221823) BP: 105/69 (11/23/221823) SpO2: 97 % (11/23/221823) PFT: Minimal Predicted IC: .783 L. Inspiratory capacity: 1.5L. Primary Service: Surgery [place]. Admitting Diagnosis: Wound dehiscence [T81.30XA] Dehiscence of wound [T81.30XA] Pulmonary Diagnosis: Asthma, COPD, Hypertension, JORDAN and Pulmonary HTN. Prescriptions/Home Medications/Durable Medical Equipment: Combivent, Albuterol. documented in this encounter Plan of Treatment Upcoming Encounters Date Type Specialty Care Team Description 12/04/2022 Longterm Visit Family Medicine Michelle Gallegos MD [address] [place] [address] [place] [address] 12/13/2022 Office Visit General Surgery Teresita Padron PA-C [address] [facility] [place] [address] 12/23/2022 Office Visit Orthopedics Eliezer Gifford, DO [address] [facility] [place] [address] 01/03/2023 Office Visit Cardiology Hammad Lopez, DO [address] [place] [address] 01/07/2023 Office Visit Internal Medicine Marcela Pinto MD [address] [place] [address] Health Maintenance Due Date Last Done Comments [...] Additional history exists GFR - Renal Function 05/29/2023 11/29/2022, 11/28/2022, 11/27/2022, Additional history exists CKD PHOS USE SMARTSET 79936 08/05/202307/14, 02/19/2022, 03/09/2021, Additional history exists DIABETES-FOOT EXAM 10/10/2023 10/10/2022, 0 11/19/2021, 12/21/2020, Additional history exists Depression Screening, Annual for Pts 12 and Over 10/10/2023 10/10/2022 O2 ASSESSMENT COMPLETED IN PAST YEAR FOR COPD 11/24/2023 11/24/2022 CKD HGB USE SMARTSET 00564 11/29/202311/29, 11/28/2022, 11/27/2022, Additional history exists DXA Scan 08/08/2025 08/08/2020, [...] Procedure Name Priority Date/Time Associated Diagnosis Comments BASIC METABOLIC PANEL Routine 11/29/2022 8:04 AM EST CBC Routine 11/29/2022 8:04 AM EST GLUCOSE METER, POINT OF CARE [facility] 11/29/2022 8:00 AM EST GLUCOSE METER, POINT OF CARE [facility] 11/28/2022 9:05 PM EST GLUCOSE METER, POINT OF CARE [facility] 11/28/2022 4:04 PM EST GLUCOSE METER, POINT OF CARE [facility] 11/28/2022 12:06 PM EST BASIC METABOLIC PANEL Routine 11/28/2022 7:51 AM EST CBC Routine 11/28/2022 7:51 AM EST GLUCOSE METER, POINT OF CARE [facility] 11/28/2022 7:36 AM EST GLUCOSE METER, POINT OF CARE [facility] 11/27/2022 10:21 PM EST GLUCOSE METER, POINT OF CARE [facility] 11/27/2022 4:59 PM EST GLUCOSE METER, POINT OF CARE [facility] 11/27/2022 11:51 AM EST BASIC METABOLIC PANEL Routine 11/27/2022 8:02 AM EST CBC Routine 11/27/2022 8:02 AM EST GLUCOSE METER, POINT OF CARE [facility] 11/27/2022 7:43 AM EST GLUCOSE METER, POINT OF CARE [facility] 11/26/2022 10:10 PM EST GLUCOSE METER, POINT OF CARE [facility] 11/26/2022 4:44 PM EST GLUCOSE METER, POINT OF CARE [facility] 11/26/2022 11:22 AM EST GLUCOSE METER, POINT OF CARE [facility] 11/26/2022 8:50 AM EST BASIC METABOLIC PANEL Routine 11/26/2022 7:11 AM EST CBC Routine 11/26/2022 7:11 AM EST GLUCOSE METER, POINT OF CARE [facility] 11/25/2022 11:15 PM EST GLUCOSE METER, POINT OF CARE [facility] 11/25/2022 6:19 PM EST GLUCOSE METER, POINT OF CARE [facility] 11/25/2022 5:50 PM EST GLUCOSE METER, POINT OF CARE [facility] 11/25/2022 12:36 PM EST BASIC METABOLIC PANEL Routine 11/25/2022 6:35 AM EST CBC Routine 11/25/2022 6:35 AM EST GLUCOSE METER, POINT OF CARE [facility] 11/25/2022 6:34 AM EST GLUCOSE METER, POINT OF CARE [facility] 11/24/2022 11:17 PM EST GLUCOSE METER, POINT OF CARE [facility] 11/24/2022 4:36 PM EST BASIC METABOLIC PANEL Routine 11/24/2022 4:18 PM EST LACTATE Routine 11/24/2022 4:18 PM EST CBC Routine 11/24/2022 4:18 PM EST GLUCOSE METER, POINT OF CARE [facility] 11/24/2022 11:28 AM EST HEMOGLOBIN A1C Routine 11/24/2022 6:57 AM EST BASIC METABOLIC PANEL Routine 11/24/2022 6:57 AM EST CBC Routine 11/24/2022 6:57 AM EST GLUCOSE METER, POINT OF CARE [facility] 11/24/2022 5:22 AM EST GLUCOSE METER, POINT OF CARE [facility] 11/24/2022 2:34 AM EST XR ABDOMEN 1 VIEW Routine 11/24/2022 1:5 7 AM EST EXPLORATORY LAPAROTOMY 11/24/2022 12:00 AM EST SBO (small bowel obstruction) (HCC) BASIC METABOLIC PANEL STAT 11/23/2022 11:34 PM EST GLUCOSE METER, POINT OF CARE [facility] 11/23/2022 9:05 PM EST TYPE AND SCREEN STAT 11/23/2022 8:02 PM EST CBC STAT 11/23/2022 8:02 PM EST EXPLORATORY LAPAROTOMY SBO (small bowel obstruction) (HCC) documented in this encounter Results * (ABNORMAL) CBC (11/29/2022 8:04 AM EST) Pathologist [facility] WBC 8.89 4.00 - 10.80 K/uL 11/29/2022 8:33 AM EST [facility] RBC 2.70 3.85 - 5.15 M/uL 11/29/2022 8:33 AM EST [facility] HGB 7.6(L) 12.0 - 15.3 g/dL 11/29/2022 8:33 AM EST [facility] HCT 25.4(L) 36.0 - 45.2 % 11/29/2022 8:33 AM EST [facility] MCV 94.1 81.5 - 97.5 fL 11/29/2022 8:33 AM EST [facility] MCH 28.1 27.0 - 34.0 pg 11/29/2022 8:33 AM EST [facility] MCHC 29.9 32.0 - 36.0 g/dL 11/29/2022 8:33 AM EST [facility] RDW 14.7 11.5 - 15.5 % 11/29/2022 8:33 AM EST [facility] PLT 279 140 - 400 K/uL 11/29/2022 8:33 AM EST [facility] MPV 10.0 6.6 - 11.1 fL 11/29/2022 8:33 AM EST [facility] nRBCs 0 <=0 /100 WBCs 11/29/2022 8:33 AM EST [facility] Blood Venous blood specimen / Unknown Venipuncture / Unknown 11/29/2022 8:04 AM EST 11/29/2022 8:15 AM EST Tania Reyes MD LAB BLOOD [facility] [address] [place] [address] * (ABNORMAL) BASIC METABOLIC PANEL (11/29/2022 8:04 AM EST) Pathologist [facility] BUN 9 6 - 20 mg/dL 11/29/2022 8:45 AM EST [facility] Creatinine 0.7 0.5 - 1.0 mg/dL 11/29/2022 8:45 AM EST [facility] Estimated Glomerular Filtration Rate 86 >=60 mL/min 11/29/2022 8:45 AM EST [facility] Comment:eGFR is calculated b ased on the CKD-EPI 2020 equation Sodium 138 135 - 146 mmol/L 11/29/2022 8:45 AM EST [facility] Potassium 3.5 3.5 - 5.1 mmol/L 11/29/2022 8:45 AM EST [facility] Chloride 100 98 - 107 mmol/L 11/29/2022 8:45 AM EST [facility] CO2 34(H) 22 - 32 mmol/L 11/29/2022 8:45 AM EST [facility] Anion Gap 4(L) 7 - 15 mmol/L 11/29/2022 8:45 AM EST [facility] Glucose 110 70 - 120 mg/dL 11/29/2022 8:45 AM EST [facility] Calcium 8.7 8.4 - 10.2 mg/dL 11/29/2022 8:45 AM EST [facility] Blood Venous blood specimen / Unknown Venipuncture / Unknown 11/29/2022 8:04 AM EST 11/29/2022 8:15 AM EST Tania Reyes MD LAB [facility] [address] [place] [address] * GLUCOSE METER, POINT OF CARE (11/29/2022 8:00 AM EST) Glucose Meter 108 70 - 120 mg/dL 11/29/2022 8:09 AM EST Hita Blood Whole blood specimen / Unknown 11/29/2022 8:00 AM EST 11/29/2022 8:09 AM EST Renetta Oleary MD LAB POINT OF CARE TE ST DOCKED DEVICE UNSOLICITED RESULTS [facility] [address] [place] [address] * (ABNORMAL) GLUCOSE METER, POINT OF CARE (11/28/2022 9:05 PM EST) Glucose Meter 133(H) 70 - 120 mg/dL 11/28/2022 9:09 PM EST [facility] Blood Whole blood specimen / Unknown 11/28/2022 9:05 PM EST 11/28/2022 9:09 PM EST Renetta Oleary MD LAB POINT OF CARE TE ST DOCKED DEVICE UNSOLICITED RESULTS Performing Organization Address City/[facility]/ZIP Co de Phone Number [facility] [address] [place] [address] * (ABNORMAL) GLUCOSE METER, POINT OF CARE (11/28/2022 4:04 PM EST) Glucose Meter 161(H) 70 - 120 mg/dL 11/28/2022 4:08 PM EST Hita Blood Whole blood specimen / Unknown 11/28/2022 4:04 PM EST 11/28/2022 4:08 PM EST Renetta Oleary MD LAB POINT OF CARE TE ST DOCKED DEVICE UNSOLICITED RESULTS Performing Organization Address City/[facility]/ZIP Co de Phone Number [facility] [address] [place] [address] * (ABNORMAL) GLUCOSE METER, POINT OF CARE (11/28/2022 12:06 PM EST) Glucose Meter 164(H) 70 - 120 mg/dL 11/28/2022 12:11 PM EST Hita Blood Whole blood specimen / Unknown 11/28/2022 12:06 PM EST 11/28/2022 12:11 PM EST Renetta Oleary MD LAB POINT OF CARE TE ST DOCKED DEVICE UNSOLICITED RESULTS [facility] [address] [place] [address] * (ABNORMAL) CBC (11/28/2022 7:51 AM EST) WBC 9.97 4.00 - 10.80 K/uL 11/28/2022 8:26 AM EST [facility] RBC 2.91 3.85 - 5.15 M/uL 11/28/2022 8:26 AM EST [facility] HGB 8.0(L) 12.0 - 15.3 g/dL 11/28/2022 8:26 AM EST [facility] HCT 27.6(L) 36.0 - 45.2 % 11/28/2022 8:26 AM EST [facility] MCV 94.8 81.5 - 97.5 fL 11/28/2022 8:26 AM EST [facility] MCH 27.5 27.0 - 34.0 pg 11/28/2022 8:26 AM EST [facility] MCHC 29.0 32.0 - 36.0 g/dL 11/28/2022 8:26 AM EST [facility] RDW 14.8 11.5 - 15.5 % 11/28/2022 8:26 AM EST [facility] PLT 276 140 - 400 K/uL 11/28/2022 8:26 AM EST [facility] MPV 10.0 6.6 - 11.1 fL 11/28/2022 8:26 AM EST [facility] nRBCs 0 <=0 /100 WBCs 11/28/2022 8:26 AM EST LABORATORY GM Blood Venous blood specimen / Unknown Venipuncture / Unknown 11/28/2022 7:51 AM EST 11/28/2022 8:09 AM EST Tania Reyes MD [facility] [address] [place] [address] * (ABNORMAL) BASIC METABOLIC PANEL (11/28/2022 7:51 AM EST) BUN 10 6 - 20 mg/dL 11/28/2022 8:39 AM EST [facility] Creatinine 0.7 0.5 - 1.0 mg/dL 11/28/2022 8:39 AM EST [facility] Estimated Glomerular Filtration Rate 83 >=60 mL/min 11/28/2022 8:39 AM EST [facility] Comment:eGFR is calculated b ased on the CKD-EPI 2020 equation Sodium 138 135 - 146 mmol/L 11/28/2022 8:39 AM EST [facility] Potassium 3.8 3.5 - 5.1 mmol/L 11/28/2022 8:39 AM EST [facility] Chloride 100 98 - 107 mmol/L 11/28/2022 8:39 AM EST [facility] CO2 34(H) 22 - 32 mmol/L 11/28/2022 8:39 AM EST [facility] Anion Gap 4(L) 7 - 15 mmol/L 11/28/2022 8:39 AM EST [facility] Glucose 106 70 - 120 mg/dL 11/28/2022 8:39 AM EST [facility] Calcium 8.8 8.4 - 10.2 mg/dL 11/28/2022 8:39 AM EST [facility] Blood Venous blood specimen / Unknown Venipuncture / Unknown 11/28/2022 7:51 AM EST 11/28/2022 8:09 AM EST Tania Reyes MD [facility] [address] [place] [address] * GLUCOSE METER, POINT OF CARE (11/28/2022 7:36 AM EST) [facility] Signature Glucose Meter 105 70 - 120 mg/dL 11/28/2022 11:55 AM EST Hita Blood Whole blood specimen / Unknown 11/28/2022 7:36 AM EST 11/28/2022 11:55 AM EST Renetta Oleary MD LAB POINT OF CARE TE ST DOCKED DEVICE UNSOLICITED RESULTS [facility] [address] [place] [address] * (ABNORMAL) GLUCOSE METER, POINT OF CARE (11/27/2022 10:21 PM EST) Glucose Meter 126(H) 70 - 120 mg/dL 11/27/2022 10:27 PM EST Hita Blood Whole blood specimen / Unknown 11/27/2022 10:21 PM EST 11/27/2022 10:27 PM EST Renetta Oleary MD LAB POINT OF CARE TE ST DOCKED DEVICE UNSOLICITED RESULTS [facility] [address] [place] [address] * (ABNORMAL) GLUCOSE METER, POINT OF CARE (11/27/2022 4:59 PM EST) Glucose Meter 168(H) 70 - 120 mg/dL 11/27/2022 5:08 PM EST Hita Blood Whole blood specimen / Unknown 11/27/2022 4:59 PM EST 11/27/2022 5:08 PM EST Renetta Oleary MD LAB POINT OF CARE TE ST DOCKED DEVICE UNSOLICITED RESULTS [facility] [address] [place] [address] * (ABNORMAL) GLUCOSE METER, POINT OF CARE (11/27/2022 11:51 AM EST) Glucose Meter 140(H) 70 - 120 mg/dL 11/27/2022 12:37 PM EST Hita Blood Whole blood specimen / Unknown 11/27/2022 11:51 AM EST 11/27/2022 12:37 PM EST Renetta Oleary MD LAB POINT OF CARE TE ST DOCKED DEVICE UNSOLICITED RESULTS [facility] [address] [place] [address] * (ABNORMAL) CBC (11/27/2022 8:02 AM EST) WBC 9.98 4.00 - 10.80 K/uL 11/27/2022 8:25 AM EST [facility] RBC 2.81 3.85 - 5.15 M/uL 11/27/2022 8:25 AM EST [facility] HGB 7.9(L) 12.0 - 15.3 g/dL 11/27/2022 8:25 AM EST [facility] HCT 26.7(L) 36.0 - 45.2 % 11/27/2022 8:25 AM EST [facility] MCV 95.0 81.5 - 97.5 fL 11/27/2022 8:25 AM EST [facility] MCH 28.1 27.0 - 34.0 pg 11/27/2022 8:25 AM EST [facility] MCHC 29.6 32.0 - 36.0 g/dL 11/27/2022 8:25 AM EST [facility] RDW 14.8 11.5 - 15.5 % 11/27/2022 8:25 AM EST [facility] PLT 254 140 - 400 K/uL 11/27/2022 8:25 AM EST [facility] MPV 10.2 6.6 - 11.1 fL 11/27/2022 8:25 AM EST LAB[facility] nRBCs 0 <=0 /100 WBCs 11/27/2022 8:25 AM EST LABORATORY GM Blood Venous blood specimen / Unknown Venipuncture / Unknown 11/27/2022 8:02 AM EST 11/27/2022 8:13 AM EST Tania Reyes MD [facility] [address] [place] [address] * (ABNORMAL) BASIC METABOLIC PANEL (11/27/2022 8:02 AM EST) BUN 12 6 - 20 mg/dL 11/27/2022 8:40 AM EST [facility] Creatinine 0.8 0.5 - 1.0 mg/dL 11/27/2022 8:40 AM EST [facility] Estimated Glomerular Filtration Rate 75 >=60 mL/min 11/27/2022 8:40 AM EST [facility] Comment:eGFR is calculated b ased on the CKD-EPI 2020 equation Sodium 140 135 - 146 mmol/L 11/27/2022 8:40 AM EST [facility] Potassium 3.7 3.5 - 5.1 mmol/L 11/27/2022 8:40 AM EST [facility] Chloride 99 98 - 107 mmol/L 11/27/2022 8:40 AM EST [facility] CO2 35(H) 22 - 32 mmol/L 11/27/2022 8:40 AM EST [facility] Anion Gap 6(L) 7 - 15 mmol/L 11/27/2022 8:40 AM EST [facility] Glucose 115 70 - 120 mg/dL 11/27/2022 8:40 AM EST [facility] Calcium 8.8 8.4 - 10.2 mg/dL 11/27/2022 8:40 AM EST [facility] Blood Venous blood specimen / Unknown Venipuncture / Unknown 11/27/2022 8:02 AM EST 11/27/2022 8:13 AM EST Tania Reyes MD LAB [facility] [address] [place], [place] [id number] * GLUCOSE METER, POINT OF CARE (11/27/2022 7:43 AM EST) Glucose Meter 106 70 - 120 mg/dL 11/27/2022 7:45 AM EST [facility] Blood Whole blood specimen / Unknown 11/27/2022 7:43 AM EST 11/27/2022 7:45 AM EST Renetta Oleary MD LAB POINT OF CARE TE ST DOCKED DEVICE UNSOLICITED RESULTS [facility] [address] [place] [address] * (ABNORMAL) GLUCOSE METER, POINT OF CARE (11/26/2022 10:10 PM EST) Glucose Meter 168(H) 70 - 120 mg/dL 11/26/2022 10:15 PM EST Hita Blood Whole blood specimen / Unknown 11/26/2022 10:10 PM EST 11/26/2022 10:14 PM EST Renetta Oleary MD LAB POINT OF CARE TE ST DOCKED DEVICE UNSOLICITED RESULTS [facility] [address] [place] [address] * (ABNORMAL) GLUCOSE METER, POINT OF CARE (11/26/2022 4:44 PM EST) Glucose Meter 126(H) 70 - 120 mg/dL 11/26/2022 5:27 PM EST Hita Blood Whole blood specimen / Unknown 11/26/2022 4:44 PM EST 11/26/2022 5:27 PM EST Renetta Oleary MD LAB POINT OF CARE TE ST DOCKED DEVICE UNSOLICITED RESULTS Performing Organization Address City/[facility]/ZIP Co de Phone Number [facility] [address] [place] [address] * (ABNORMAL) GLUCOSE METER, POINT OF CARE (11/26/2022 11:22 AM EST) Glucose Meter 150(H) 70 - 120 mg/dL 11/26/2022 11:31 AM EST Hita Blood Whole blood specimen / Unknown 11/26/2022 11:22 AM EST 11/26/2022 11:31 AM EST Renetta Oleary MD LAB POINT OF CARE TE ST DOCKED DEVICE UNSOLICITED RESULTS [facility] [address] [place] [address] * GLUCOSE METER, POINT OF CARE (11/26/2022 8:50 AM EST) Glucose Meter 119 70 - 120 mg/dL 11/26/2022 9:05 AM EST [facility] Blood Whole blood specimen / Unknown 11/26/2022 8:50 AM EST 11/26/2022 9:05 AM EST Renetta Oleary MD LAB POINT OF CARE TE ST DOCKED DEVICE UNSOLICITED RESULTS [facility] [address] [place] [address] * (ABNORMAL) CBC (11/26/2022 7:11 AM EST) WBC 10.80 4.00 - 10.80 K/uL 11/26/2022 7:48 AM EST [facility] RBC 2.95 3.85 - 5.15 M/uL 11/26/2022 7:48 AM EST [facility] HGB 8.3(L) 12.0 - 15.3 g/dL 11/26/2022 7:48 AM EST [facility] HCT 27.5(L) 36.0 - 45.2 % 11/26/2022 7:48 AM EST [facility] MCV 93.2 81.5 - 97.5 fL 11/26/2022 7:48 AM EST [facility] MCH 28.1 27.0 - 34.0 pg 11/26/2022 7:48 AM EST [facility] MCHC 30.2 32.0 - 36.0 g/dL 11/26/2022 7:48 AM EST [facility] RDW 14.9 11.5 - 15.5 % 11/26/2022 7:48 AM EST [facility] PLT 260 140 - 400 K/uL 11/26/2022 7:48 AM EST [facility] MPV 10.5 6.6 - 11.1 fL 11/26/2022 7:48 AM EST [facility] nRBCs 0 <=0 /100 WBCs 11/26/2022 7:48 AM EST [facility] Blood Venous blood specimen / Unknown Venipuncture / Unknown 11/26/2022 7:11 AM EST 11/26/2022 7:39 AM EST Tania Reyes MD LAB BLOOD [facility] [address] [place] [address] * (ABNORMAL) BASIC METABOLIC PANEL (11/26/2022 7:11 AM EST) BUN 20 6 - 20 mg/dL 11/26/2022 8:00 AM EST [facility] Creatinine 0.8 0.5 - 1.0 mg/dL 11/26/2022 8:00 AM EST [facility] Estimated Glomerular Filtration Rate 70 >=60 mL/min 11/26/2022 8:00 AM EST [facility] Comment:eGFR is calculated b ased on the CKD-EPI 2020 equation Sodium 135 135 - 146 mmol/L 11/26/2022 8:00 AM EST [facility] Potassium 3.1(L) 3.5 - 5.1 mmol/L 11/26/2022 8:00 AM EST [facility] Chloride 95(L) 98 - 107 mmol/L 11/26/2022 8:00 AM EST [facility] CO2 31 22 - 32 mmol/L 11/26/2022 8:00 AM EST [facility] Anion Gap 9 7 - 15 mmol/L 11/26/2022 8:00 AM EST [facility] Glucose 131(H) 70 - 120 mg/dL 11/26/2022 8:00 AM EST [facility] Calcium 8.6 8.4 - 10.2 mg/dL 11/26/2022 8:00 AM EST [facility] Blood Venous blood specimen / Unknown Venipuncture / Unknown 11/26/2022 7:11 AM EST 11/26/2022 7:26 AM EST Tania Reyes MD LAB BLOOD ORDERA BLES Performing Organization Address City/[facility]/ZIP Co de Phone Number LABORATORY [facility] [address] [place] [address] * (ABNORMAL) GLUCOSE METER, POINT OF CARE (11/25/2022 11:15 PM EST) Glucose Meter 156(H) 70 - 120 mg/dL 11/25/2022 11:30 PM EST Hita Blood Whole blood specimen / Unknown 11/25/2022 11:15 PM EST 11/25/2022 11:30 PM EST Renetta Oleary MD LAB POINT OF CARE TE ST DOCKED DEVICE UNSOLICITED RESULTS [facility] [address] [place] [address] * (ABNORMAL) GLUCOSE METER, POINT OF CARE (11/25/2022 6:19 PM EST) Glucose Meter 162(H) 70 - 120 mg/dL 11/25/2022 6:27 PM EST Hita Blood Whole blood specimen / Unknown 11/25/2022 6:19 PM EST 11/25/2022 6:27 PM EST Renetta Oleary MD LAB POINT OF CARE TE ST DOCKED DEVICE UNSOLICITED RESULTS [facility] [address] [place] [address] * (ABNORMAL) GLUCOSE METER, POINT OF CARE (11/25/2022 5:50 PM EST) Glucose Meter 144(H) 70 - 120 mg/dL 11/25/2022 5:55 PM EST [facility] Blood Whole blood specimen / Unknown 11/25/2022 5:50 PM EST 11/25/2022 5:55 PM EST Renetta Oleary MD LAB POINT OF CARE TE ST DOCKED DEVICE UNSOLICITED RESULTS [facility] [address] [place] [address] * (ABNORMAL) GLUCOSE METER, POINT OF CARE (11/25/2022 12:36 PM EST) Glucose Meter 156(H) 70 - 120 mg/dL 11/25/2022 12:44 PM EST [facility]ita Blood Whole blood specimen / Unknown 11/25/2022 12:36 PM EST 11/25/2022 12:44 PM EST Renetta Oleary MD LAB POINT OF CARE TE ST DOCKED DEVICE UNSOLICITED RESULTS [facility] [address] [place] [address] * (ABNORMAL) CBC (11/25/2022 6:35 AM EST) WBC 12.56(H) 4.00 - 10.80 K/uL 11/25/2022 7:10 AM EST [facility] RBC 3.29 3.85 - 5.15 M/uL 11/25/2022 7:10 AM EST [facility] HGB 9.3(L) 12.0 - 15.3 g/dL 11/25/2022 7:10 AM EST [facility] HCT 30.2(L) 36.0 - 45.2 % 11/25/2022 7:10 AM EST [facility] MCV 91.8 81.5 - 97.5 fL 11/25/2022 7:10 AM EST [facility] MCH 28.3 27.0 - 34.0 pg 11/25/2022 7:10 AM EST [facility] MCHC 30.8 32.0 - 36.0 g/dL 11/25/2022 7:10 AM EST [facility] RDW 15.0 11.5 - 15.5 % 11/25/2022 7:10 AM EST [facility] PLT 308 140 - 400 K/uL 11/25/2022 7:10 AM EST [facility] MPV 10.3 6.6 - 11.1 fL 11/25/2022 7:10 AM EST [facility] nRBCs 0 <=0 /100 WBCs 11/25/2022 7:10 AM EST [facility] Blood Venous blood specimen / Unknown Venipuncture / Unknown 11/25/2022 6:35 AM EST 11/25/2022 6:54 AM EST Tania Reyes MD LAB BLOOD ORDERA BLES [facility] [address] [place] [address] * (ABNORMAL) BASIC METABOLIC PANEL (11/25/2022 6:35 AM EST) BUN 28(H) 6 - 20 mg/dL 11/25/2022 7:23 AM EST [facility] Creatinine 1.2(H) 0.5 - 1.0 mg/dL 11/25/2022 7:23 AM EST [facility] Estimated Glomerular Filtration Rate 43(L) >=60 mL/min 11/25/2022 7:23 AM EST [facility] Comment:eGFR is calculated b ased on the CKD-EPI 2020 equation Sodium 135 135 - 146 mmol/L 11/25/2022 7:23 AM EST [facility] Potassium 3.7 3.5 - 5.1 mmol/L 11/25/2022 7:23 AM EST [facility] Chloride 94(L) 98 - 107 mmol/L 11/25/2022 7:23 AM EST [facility] CO2 33(H) 22 - 32 mmol/L 11/25/2022 7:23 AM EST [facility] Anion Gap 8 7 - 15 mmol/L 11/25/2022 7:23 AM EST [facility] Glucose 119 70 - 120 mg/dL 11/25/2022 7:23 AM EST [facility] Calcium 8.9 8.4 - 10.2 mg/dL 11/25/2022 7:23 AM EST [facility] Blood Venous blood specimen / Unknown Venipuncture / Unknown 11/25/2022 6:35 AM EST 11/25/2022 6:54 AM EST Tania Reyes MD LAB BLOOD ORDERA BLES LABORATORY [facility] [address] [place] [address] * (ABNORMAL) GLUCOSE METER, POINT OF CARE (11/25/2022 6:34 AM EST) Glucose Meter 121(H) 70 - 120 mg/dL 11/25/2022 6:40 AM EST [facility]ita Blood Whole blood specimen / Unknown 11/25/2022 6:34 AM EST 11/25/2022 6:40 AM EST Renetta Oleary MD LAB POINT OF CARE TE ST DOCKED DEVICE UNSOLICITED RESULTS [facility] [address] [place] [address] * (ABNORMAL) GLUCOSE METER, POINT OF CARE (11/24/2022 11:17 PM EST) Glucose Meter 137(H) 70 - 120 mg/dL 11/24/2022 11:23 PM EST [facility]ita Blood Whole blood specimen / Unknown 11/24/2022 11:17 PM EST 11/24/2022 11:22 PM EST Renetta Oleary MD LAB POINT OF CARE TE ST DOCKED DEVICE UNSOLICITED RESULTS [facility] [address] [place] [address] * (ABNORMAL) GLUCOSE METER, POINT OF CARE (11/24/2022 4:36 PM EST) Glucose Meter 172(H) 70 - 120 mg/dL 11/24/2022 5:03 PM EST [facility] Blood Whole blood specimen / Unknown 11/24/2022 4:36 PM EST 11/24/2022 5:03 PM EST Renetta Oleary MD LAB POINT OF CARE TE ST DOCKED DEVICE UNSOLICITED RESULTS [facility] [address] [place] [address] * LACTATE (11/24/2022 4:18 PM EST) Lactate 1.8 0.4 - 2.0 mmol/L 11/24/2022 4:52 PM EST LABORATORY [facility] Blood Venous blood specimen / Unknown Venipuncture / Unknown 11/24/2022 4:18 PM EST 11/24/2022 4:28 PM EST Missy Pinzon MD LAB BLOOD ORDERABLES Performing Organization Address City/[facility]/ZIP Co de Phone Number LABORATORY [facility] [address] [place] [address] * (ABNORMAL) BASIC METABOLIC PANEL (11/24/2022 4:18 PM EST) BUN 28(H) 6 - 20 mg/dL 11/24/2022 4:57 PM EST [facility] Creatinine 1.2(H) 0.5 - 1.0 mg/dL 11/24/2022 4:57 PM EST [facility] Estimated Glomerular Filtration Rate 47(L) >=60 mL/min 11/24/2022 4:57 PM EST [facility] Comment:eGFR is calculated b ased on the CKD-EPI 2020 equation Sodium 134(L) 135 - 146 mmol/L 11/24/2022 4:57 PM EST [facility] Potassium 4.4 3.5 - 5.1 mmol/L 11/24/2022 4:57 PM EST [facility] Comment:Result may be falsel y elevated due to hemolysis. Chloride 93(L) 98 - 107 mmol/L 11/24/2022 4:57 PM EST [facility] CO2 32 22 - 32 mmol/L 11/24/2022 4:57 PM EST [facility] Anion Gap 9 7 - 15 mmol/L 11/24/2022 4:57 PM EST [facility] Glucose 175(H) 70 - 120 mg/dL 11/24/2022 4:57 PM EST [facility] Calcium 8.4 8.4 - 10.2 mg/dL 11/24/2022 4:57 PM EST [facility] Blood Venous blood specimen / Unknown Venipuncture / Unknown 11/24/2022 4:18 PM EST 11/24/2022 4:28 PM EST Missy Pinzon MD LAB BLOOD ORDERABLES LABORATORY [facility] [address], [place] [id number] * (ABNORMAL) CBC (11/24/2022 4:18 PM EST) WBC 12.69(H) 4.00 - 10.80 K/uL 11/24/2022 4:36 PM EST [facility] RBC 3.25 3.85 - 5.15 M/uL 11/24/2022 4:36 PM EST [facility] HGB 9.0(L) 12.0 - 15.3 g/dL 11/24/2022 4:36 PM EST [facility] HCT 30.0(L) 36.0 - 45.2 % 11/24/2022 4:36 PM EST [facility] MCV 92.3 81.5 - 97.5 fL 11/24/2022 4:36 PM EST [facility] MCH 27.7 27.0 - 34.0 pg 11/24/2022 4:36 PM EST [facility] MCHC 30.0 32.0 - 36.0 g/dL 11/24/2022 4:36 PM EST [facility] RDW 14.8 11.5 - 15.5 % 11/24/2022 4:36 PM EST [facility] PLT 329 140 - 400 K/uL 11/24/2022 4:36 PM EST [facility] MPV 10.0 6.6 - 11.1 fL 11/24/2022 4:36 PM EST LABORATORY [facility] nRBCs 0 <=0 /100 WBCs 11/24/2022 4:36 PM EST LABORATORY [facility] Blood Venous blood specimen / Unknown Venipuncture / Unknown 11/24/2022 4:18 PM EST 11/24/2022 4:28 PM EST Missy Pinzon MD LAB BLOOD ORDERABLES LABORATORY [facility] [address] [place] [address] * (ABNORMAL) GLUCOSE METER, POINT OF CARE (11/24/2022 11:28 AM EST) Glucose Meter 159(H) 70 - 120 mg/dL 11/24/2022 11:52 PM EST [facility] Blood Whole blood specimen / Unknown 11/24/2022 11:28 AM EST 11/24/2022 11:52 PM EST Renetta Oleary MD LAB POINT OF CARE TE ST DOCKED DEVICE UNSOLICITED RESULTS Performing Organization Address City/[facility]/ZIP Co de Phone Number [facility] [address] [place] [address] * (ABNORMAL) CBC (11/24/2022 6:57 AM EST) WBC 20.54(H) 4.00 - 10.80 K/uL 11/24/2022 7:56 AM EST [facility] RBC 3.70 3.85 - 5.15 M/uL 11/24/2022 7:56 AM EST [facility] HGB 10.0(L) 12.0 - 15.3 g/dL 11/24/2022 7:56 AM EST [facility] HCT 33.8(L) 36.0 - 45.2 % 11/24/2022 7:56 AM EST [facility] MCV 91.4 81.5 - 97.5 fL 11/24/2022 7:56 AM EST [facility] MCH 27.0 27.0 - 34.0 pg 11/24/2022 7:56 AM EST [facility] MCHC 29.6 32.0 - 36.0 g/dL 11/24/2022 7:56 AM EST [facility] RDW 14.7 11.5 - 15.5 % 11/24/2022 7:56 AM EST [facility] PLT 410(H) 140 - 400 K/uL 11/24/2022 7:56 AM EST [facility] MPV 10.4 6.6 - 11.1 fL 11/24/2022 7:56 AM EST [facility] nRBCs 0 <=0 /100 WBCs 11/24/2022 7:56 AM EST [facility] Blood Venous blood specimen / Unknown Venipuncture / Unknown 11/24/2022 6:57 AM EST 11/24/2022 7:44 AM EST Tania Reyes MD LAB BLOOD ORDERA BLES [facility] [address] [place] [address] * (ABNORMAL) BASIC METABOLIC PANEL (11/24/2022 6:57 AM EST) BUN 24(H) 6 - 20 mg/dL 11/24/2022 8:11 AM EST [facility] Creatinine 0.8 0.5 - 1.0 mg/dL 11/24/2022 8:11 AM EST [facility] Estimated Glomerular Filtration Rate 69 >=60 mL/min 11/24/2022 8:11 AM EST [facility] Comment:eGFR is calculated b ased on the CKD-EPI 2020 equation Sodium 137 135 - 146 mmol/L 11/24/2022 8:11 AM EST [facility] Potassium 3.2(L) 3.5 - 5.1 mmol/L 11/24/2022 8:11 AM EST [facility] Chloride 93(L) 98 - 107 mmol/L 11/24/2022 8:11 AM EST [facility] CO2 34(H) 22 - 32 mmol/L 11/24/2022 8:11 AM EST [facility] Anion Gap 10 7 - 15 mmol/L 11/24/2022 8:11 AM EST [facility] Glucose 101 70 - 120 mg/dL 11/24/2022 8:11 AM EST [facility] Calcium 9.1 8.4 - 10.2 mg/dL 11/24/2022 8:11 AM EST LABORATORY [facility] Blood Venous blood specimen / Unknown Venipuncture / Unknown 11/24/2022 6:57 AM EST 11/24/2022 7:44 AM EST Tania Reyes MD LAB BLOOD ORDERA BLES LAB[facility] [address] [place] [address] * (ABNORMAL) HEMOGLOBIN A1C (11/24/2022 6:57 AM EST) Hemoglobin A1C 6.2(H) 4.0 - 5.6 % 11/24/2022 8:00 AM EST [facility] Comment:The use of HbA1c to monitor glycemic status is based on normal hemoglobin and HbA composition. This test should not be used in patients with abnormal hemoglobin that affects the half life of the red blood cell or the in vivo glycation rates. Estimated Average Glucose 131(H) <126 mg/dL 11/24/2022 8:00 AM EST LABORATORY [facility] Blood Venous blood specimen / Unknown Venipuncture / Unknown 11/24/2022 6:57 AM EST 11/24/2022 7:44 AM EST Tania Reyes MD LAB BLOOD ORDERA BLES LABORATORY [facility] [address] [place] [address] * GLUCOSE METER, POINT OF CARE (11/24/2022 5:22 AM EST) Glucose Meter 101 70 - 120 mg/dL 11/24/2022 5:28 AM EST [facility] Blood Whole blood specimen / Unknown 11/24/2022 5:22 AM EST 11/24/2022 5:28 AM EST Renetta Oleary MD LAB POINT OF CARE TE ST DOCKED DEVICE UNSOLICITED RESULTS Performing Organization Address [facility] Co de Phone Number [facility] [address] [place] [address] * (ABNORMAL) GLUCOSE METER, POINT OF CARE (11/24/2022 2:34 AM EST) Glucose Meter 124(H) 70 - 120 mg/dL 11/24/2022 2:40 AM EST [facility] Blood Whole blood specimen / Unknown 11/24/2022 2:34 AM EST 11/24/2022 2:40 AM EST Renetta Oleary MD LAB POINT OF CARE TE ST DOCKED DEVICE UNSOLICITED RESULTS Performing Organization Address City/[facility]/ZIP Co de Phone Number [facility] [address] [place] [address] * XR ABDOMEN 1 VIEW (11/24/2022 1:57 AM EST) Anatomical Region Laterality Modality Abdomen, Pelvis Computed Radiogr aphy 11/24/2022 7:15 AM EST Impressions 11/24/2022 7:35 AM EST IMPRESSION No radiopaque foreign body identified. I have personally reviewed this examination and agree with the resident/fellow physician's interpretation. Narrative 11/24/2022 7:35 AM EST EXAM XR ABDOMEN 1 VIEW - 11/24/2022 1:57 am HISTORY r/o foreign body COMPARISON CT abdomen/pelvis dated 09/09/2022. TECHNIQUE Two supine AP views of the abdomen/pelvis. FINDINGS LINES, DEVICES, SURGICAL MATERIAL: No radiopaque foreign body identified. ABDOMEN: Mild gaseous distention of the bowel. Vascular calcifications. BONES/OTHER: Degenerative osseous changes. Procedure Note Wayne Erwin, DO - 11/24/2022 EXAM XR ABDOMEN 1 VIEW - 11/24/2022 1:57 am HISTORY r/o foreign body COMPARISON CT abdomen/pelvis dated 09/09/2022. TECHNIQUE Two supine AP views of the abdomen/pelvis. FINDINGS LINES, DEVICES, SURGICAL MATERIAL: No radiopaque foreign bodyidentified. ABDOMEN: Mild gaseous distention of the bowel. Vascular calcifications. BONES/OTHER: Degenerative osseous changes. IMPRESSION IMPRESSION No radiopaque foreign body identified. I have personally reviewed this examination and agree with the resident/fellow physician's interpretation. Mendoza Rodriguez MD RADIOLOGY (RA D GENERAL) * (ABNORMAL) BASIC METABOLIC PANEL (11/23/2022 11:34 PM EST) BUN 25(H) 6 - 20 mg/dL 11/23/2022 11:59 PM EST [facility] Creatinine 0.8 0.5 - 1.0 mg/dL 11/23/2022 11:59 PM EST [facility] Estimated Glomerular Filtration Rate 76 >=60 mL/min 11/23/2022 11:59 PM EST [facility] Comment:eGFR is calculated b ased on the CKD-EPI 2020 equation Sodium 134(L) 135 - 146 mmol/L 11/23/2022 11:59 PM EST [facility] Potassium 3.8 3.5 - 5.1 mmol/L 11/23/2022 11:59 PM EST [facility] Chloride 93(L) 98 - 107 mmol/L 11/23/2022 11:59 PM EST [facility] CO2 29 22 - 32 mmol/L 11/23/2022 11:59 PM EST [facility] Anion Gap 12 7 - 15 mmol/L 11/23/2022 11:59 PM EST [facility] Glucose 131(H) 70 - 120 mg/dL 11/23/2022 11:59 PM EST [facility] Calcium 8.9 8.4 - 10.2 mg/dL 11/23/2022 11:59 PM EST [facility] Blood Venous blood specimen / Unknown Venipuncture / Unknown 11/23/2022 11:34 PM EST 11/23/2022 11:38 PM EST Tania Reyes MD LAB BLOOD ORDERA BLES Performing Organization Address City/[facility]/ZIP Co de Phone Number LABORATORY [facility] [address] [place] [address] * (ABNORMAL) GLUCOSE METER, POINT OF CARE (11/23/2022 9:05 PM EST) Glucose Meter 146(H) 70 - 120 mg/dL 11/23/2022 11:38 PM EST [facility] Blood Whole blood specimen / Unknown 11/23/2022 9:05 PM EST 11/23/2022 11:38 PM EST Renetta Oleary MD LAB POINT OF CARE TE ST DOCKED DEVICE UNSOLICITED RESULTS [facility] [address] [place] [address] * (ABNORMAL) CBC (11/23/2022 8:02 PM EST) WBC 12.53(H) 4.00 - 10.80 K/uL 11/23/2022 8:19 PM EST [facility] RBC 3.59 3.85 - 5.15 M/uL 11/23/2022 8:19 PM EST LABORATORY [facility] HGB 10.1(L) 12.0 - 15.3 g/dL 11/23/2022 8:19 PM EST [facility] HCT 32.8(L) 36.0 - 45.2 % 11/23/2022 8:19 PM EST [facility] MCV 91.4 81.5 - 97.5 fL 11/23/2022 8:19 PM EST [facility] MCH 28.1 27.0 - 34.0 pg 11/23/2022 8:19 PM EST LABORATORY [facility] MCHC 30.8 32.0 - 36.0 g/dL 11/23/2022 8:19 PM EST [facility] RDW 14.4 11.5 - 15.5 % 11/23/2022 8:19 PM EST [facility] PLT 410(H) 140 - 400 K/uL 11/23/2022 8:19 PM EST LABORATORY [facility] MPV 10.0 6.6 - 11.1 fL 11/23/2022 8:19 PM EST [facility] nRBCs 0 <=0 /100 WBCs 11/23/2022 8:19 PM EST LABORATORY [facility] Blood Venous blood specimen / Unknown Venipuncture / Unknown 11/23/2022 8:02 PM EST 11/23/2022 8:07 PM EST Tania Reyes MD LAB BLOOD ORDERA BLES Performing Organization Address City/State/[facility] Co de Phone Number LABORATORY [facility] [address] [place] [address] * TYPE AND SCREEN (11/23/2022 8:02 PM EST) ABO O 11/23/2022 9:23 PM EST LABORATORY [facility] BLOOD BANK Rh Positive 11/23/2022 9:23 PM EST LABORATORY [facility] BLOOD BANK Red Blood Cell Antibody Screen Negative 11/23/2022 9:23 PM EST LABORATORY [facility] BLOOD BANK Specimen Expiration Date 11/26/2022 23:59 11/23/2022 9:23 PM EST LABORATORY [facility] BLOOD BANK Blood Venous blood specimen / Unknown Venipuncture / Unknown 11/23/2022 8:02 PM EST 11/23/2022 8:07 PM EST Tania Reyes MD LAB BLOOD BANK T EST ORDERABLES LABORATORY [facility] BLOOD BANK [address] [facility] [place] [address] documented in this encounter Visit Diagnoses Diagnosis Wound dehiscence- Primary Disruption of external operation (surgical) wound Dehiscence of wound Asthma with severity to be determined Type 2 diabetes mellitus with hemoglobin A1c goal of less than 7.5% (HCC) COPD, group B, 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 (HCC) Chronic systolic heart failure (HCC) Chronic systolic heart failure HTN, goal below 140/90 Unspecified essential hypertension Hyperlipidemia with target LDL less than 100 Other and unspecified hyperlipidemia HECTOR (generalized anxiety disorder) Generalized anxiety disorder Gastro-esophageal reflux disease without esophagitis Esophageal reflux 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 Avoid in patients with severe hepatic impairment or severe active liver disease. Use for 5 days., Admission Given 11/29/2022 4:51 AM EST 975 mg documented in this encounter Active and Recently Administered Medications Times are shown in EST. Scheduled Medication Order 11/27/2022 11/28/2022 11/29/2022 Acetaminophen (Tylenol) tab 975 mg 975 mg, Oral, Q6H, First dose on 11/23/22 at 1999, Until Discontinued, Maximum 4 g acetaminophen/day. Avoid in patients with severe hepatic impairment or severe active liver disease. Use for 5 days., Admission 0559 (Given - Provider: Sumaya Lyons RN)1201 (Given - Provider: Deborah Monroy RN)1750 (Given - Provider: Deborah Monroy RN)2321 (Given - Provider: Tuyet Junior RN) 0550 (Given - Provider: Tuyet Junior RN)1215 (Given - Provider: Svetlana Franco RN)1707 (Given - Provider: Svetlana Franco RN) 0048 (Given - Provider: Ruma Smiley RN)0451 (Given - Provider: Ruma Smiley, RN) aspirin chew tab 81 mg 81 mg, Oral, Daily(AM), First dose on Fri11/26/22 at 0900, Until Discontinued 0830 (Given - Provider: Deborah Monroy RN) 0835 (Given - Provider: Svetlana Franco RN) 09 (Given - Provider: Kaylene Fregoso, BIJAL) atorvaSTATin (Lipitor) tab 40 mg 40 mg, Oral, Daily(AM), First dose on Fri11/24/22 at 0900, Until Discontinued 0830 (Given - Provider: Deborah Monroy RN) 0835 (Given - Provider: Svetlana Franco RN) 09 (Given - Provider: Kaylene Fregoso, BIJAL) Enoxaparin (Lovenox) inj 40 mg 40 mg, Subcutaneous, [id number], First dose on Fri11/24/22 at 1000, Until Discontinued, If patient is on warfarin, inform provider if daily INR value is 2 or greater!, Admission 1000 (Not Given - Provider: Deborah Monroy RN - Reason: Refused-Notify Provider - Comment: Chele PEM[place]ERTON notified.) 1000 (Not Given - Provider: Svetlana Franco RN - Reason: Refused-Notify Provider - Comment: dr. zac Peguero aware) 0905 (Not Given - Provider: Kaylene Fregoso RN - Reason: Refused-Notify Provider - Comment: Dr. Bryant Bravo) guaiFENesin-dm (Robitussin DM) oral syrup 5 mL 5 mL, Oral, Q6H, First dose (after last modification) on Fri11/28/22 at 1200, Until Discontinued 1215 (Given - Provider: Svetlana Franco RN)1707 (Given - Provider: Svetlana Franco RN) 0048 (Given - Provider: Ruma Smiley, BIJAL)0448 (Given - Provider: Ruma Smiley, RN) insulin aspart (NovoLOG) inj Subcutaneous, W/MEALS AND HS, First dose (after last modification) on Fri11/26/22 at 0800, Until Discontinued, MEDIUM DOSE (Usual starting dose): Sliding Scale Correctional insulin may be given if the patient is NPO. Dose based on standard build from Insulin Calculator. Do not modify insulin doses in administration instructions! , Glucose less than 70 instructions: Obtain STAT lab blood glucose and call covering provider., Glucose 80-150 (units): 0, Glucose 151-200 (units): 2, Glucose 201-250 (units): 4, Glucose 251-300 (units): 6, Glucose greater than 300 (units): 8, Glucose greater than 300 instructions: Give suggested insulin dose and call covering provider. 0800 (No Insulin - Provider: Deborah Monroy RN - Reason: Parameter(s) Not Met)1200 (No Insulin - Provider: Deborah Monroy RN - Reason: Parameter(s) Not Met)1749 (Given - Provider: Deborah Monroy RN)2200 (No Insulin - Provider: Danisha Eugene RN - Reason: Parameter(s) Not Met) 0800 (No Insulin - Provider: Svetlana Franco RN - Reason: Parameter(s) Not Met)1215 (Given - Provider: Svetlana Franco RN)1707 (Given - Provider: Svetlana Franco RN)2200 (No Insulin - Provider: Ruma Smiley RN - Reason: Parameter(s) Not Met) 0800 (Not Given - Provider: Kaylene Fregoso RN - Reason: Parameter(s) Not Met) Ipratropium-Albuterol (Combivent Respimat) inhaler 1 Puff 1 Puff, Inhalation, RESPQID, First dose on 11/23/22 at 2200, Until Discontinued, Shake well before use! NURSING TO FOLLOW PATIENT WITH MDI/DPI ADMINISTRATION WASTE INFO ( IF NOT SENT HOME WITH PATIENT) : Return unused medication to pharmacy in zip lock bag for disposal into black container labeled SP. 0837 (Given - Provider: Deborah Monroy RN)1155 (Given - Provider: Deborah Monroy RN)1750 (Given - Provider: Deborah Monroy RN)2007 (Given - Provider: Tuyet Junior RN) 0835 (Given - Provider: Svetlana Franco RN)1216 (Given - Provider: Svetlana Franco RN)1604 (Given - Provider: Svetlana Franco, BIJAL)193 (Given - Provider: Vargas Sousa, [employer]) 0830 (Given - Provider: Kaylene Fregoso, BIJAL) methIMAzole (Tapazole) tab 5 mg 5 mg, Oral, Daily(AM), First dose on Fri11/24/22 at 0900, Until Discontinued 0830 (Given - Provider: Deborah Monroy RN) 0835 (Given - Provider: Svetlana Franco RN) 09 (Given - Provider: Kaylene Fregoso, BIJAL) metoprolol succinate XL (toPROL XL) tab 12.5 mg 12.5 mg, Oral, Daily(AM), First dose on Fri11/26/22 at 0900, Until Discontinued, Hold for HR less than 60 or SBP below 100 and notify service if dose is held This med should NOT be Crushed or Chewed. 0830 (Given - Provider: Deborah Monroy RN) 0835 (Given - Provider: vSetlana Franco RN) 09 (Given - Provider: Kaylene Fregoso, BIJAL) omeprazole (PriLOSEC) cap 20 mg 20 mg, Oral, BID(AM/PM), First dose on Fri11/23/22 at 2100, Until Discontinued, This med should NOT be Crushed or Chewed 0830 (Given - Provider: Deborah Monroy RN)2031 (Given - Provider: Tuyet Junior RN) 0835 (Given - Provider: Svetlana Franco RN)1938 (Given - Provider: Ruma Smiley RN) 09 (Given - Provider: Kaylene Fregoso, BIJAL) oxygen GAS Inhalation, OXYGEN, First dose on Fri11/24/22 at 0000, Until Discontinued, Device/Managed by: Low Flow Device, Goal SPO2 (%): 91-95, Starting Device: Nasal Cannula, Inital Flow Rate (LPM): 2, Lowest Support: Nasal Cannula: Flow 0-6 LPM. Titrate up/down by 1 LPM., Titration Interval: Q2 minutes and as needed., Notify Provider: For sudden DECREASE in resting SPO2 to less than 85% and when escalating delivery device. 0000 (Oxygen On - Provider: Sumaya Lyons, RN)0800 (Oxygen On - Provider: Deborah Monroy, BIJAL)1719 (Oxygen Off - Provider: Magda Valencia RN) 0000 (Oxygen On - Provider: Tuyet Junior, BIJAL)0800 (Oxygen On - Provider: Svetlana Franco, RN)1600 (Oxygen On - Provider: Svetlana Franco, RN) 0000 (Oxygen On - Provider: Ruma Smiley, BIJAL)0800 (Oxygen On - Provider: Kaylene Fregoso, BIJAL) potassium chloride ER tab 40 mEq (COMPLETED) 40 mEq, Oral, ONCE, On Fri11/29/22 at 0930, For 1 dose, This med should NOT be Crushed or Chewed 904 (Given - Provider: Kaylene Fregoso, BIJAL) sertraline (Zoloft) tab 25 mg 25 mg, Oral, Daily(AM), First dose on Fri11/24/22 at 0900, Until Discontinued 08 (Given - Provider: Deborah Monroy RN) 08 (Given - Provider: Svetlana Franco, BIJAL) 09 (Given - Provider: Kaylene Fregoso, BIJAL) sodium chloride 0.9 % flush peripheral praveen 3 mL 3 mL, IV Push, QSHIFT, First dose on Fri11/24/22 at 0000, Until Discontinued, Do not flush if lock, PICC, or central line not in place; IV infusing or unable to flush., Admission 0800 (Given - Provider: Deborah Monroy RN)1600 (Given - Provider: Deborah Monroy RN)232 (Given - Provider: Tuyet Junior, BIJAL) 0800 (Given - Provider: Svetlana Franco, BIJAL)1600 (Given - Provider: Svetlana Franco, BIJAL) 0049 (Given - Provider: Ruma Smiley, BIJAL)08 (Given - Provider: Kaylene Fregoso, BIJAL) Spironolactone (Aldactone) tab 12.5 mg 12.5 mg, Oral, MWF, First dose on Fri11/27/22 at 0900, Until Discontinued 0830 (Given - Provider: Deborah Monroy RN) 09 (Given - Provider: Kaylene Fregoso, BIJAL) Zafirlukast (Accolate) tab 20 mg 20 mg, Oral, Daily(AM), First dose on Fri11/24/22 at 0900, Until Discontinued 0830 (Given - Provider: Deborah Monroy RN) 08 (Given - Provider: Svetlana Franco RN) 905 (Given - Provider: Kaylene Fregoso, BIJAL) PRN Medication Order 11/27/2022 11/28/2022 11/29/2022 Albuterol Sulfate (Proventil) (2.5 MG/3ML) 0.083% inhalation solution 2.5 mg 2.5 mg, Nebulizer, Q4H PRN Dyspnea, Starting on Fri11/23/22 at 2001, Until Fri11/29/22 at 1441 dextrose 50 % inj 25 mL 25 mL, IV Push, PRN Hypoglycemia, Other, For blood glucose 54 - 69 mg/dL or 70 - 100 mg/dL with symptoms AND patient is unresponsive, NPO, OR unable to swallow, Starting on 11/23/22 at 1943, Until Fri11/29/22 at 1441, Administer IV. Recheck blood glucose after 15 minutes. Notify provider. dextrose 50 % inj 50 mL 50 mL, IV Push, PRN Hypoglycemia, Other, For blood glucose below 54 mg/dL AND patient unresponsive, NPO, OR unable to swallow, Starting on 11/23/22 at 1943, Until Fri11/29/22 at 1441, Administer IV. Recheck blood glucose in 15 minutes. Notify provider. glucagon (Glucagen) inj 1 mg 1 mg, Intramuscular, PRN Hypoglycemia, Other, If patient is unresponsive, or NPO and has no IV access, Starting on 11/23/22 at 1943, Until Fri11/29/22 at 1441, NPO and no IV access with either 1) blood glucose less than 100 mg/dL and symptomatic OR 2) blood glucose less than 70 mg/dL and asymptomatic Glucose (Glutose 15) 40 % gel 15 g of glucose 15 g of glucose, Oral, PRN Hypoglycemia (low sugar), Other, For blood glucose 54 - 69 mg/dL or 70 - 100 mg/dL with symptoms AND patient alert WITH difficulty chewing/swallowing, Starting on 11/23/22 at 1943, Until Fri11/29/22 at 1441, Administer gel. Recheck blood glucose after 15 minutes. Notify provider. 37.5 gram tube = 15 grams glucose = 1 each Glucose (Glutose 15) 40 % gel 30 g of glucose 30 g of glucose, Oral, PRN Hypoglycemia (low sugar), Other, For blood glucose below 54 mg/dL AND patient alert WITH difficulty chewing/swallowing, Starting on 11/23/22 at 1943, Until Fri11/29/22 at 1441, Administer gel. Recheck blood glucose after 15 minutes. Notify provider. 37.5 gram tube = 15 grams glucose = 1 each glucose chew tab 16 g 16 g, Oral, PRN Hypoglycemia, Other, For blood glucose 54 - 69 mg/dL or 70 - 100 mg/dL with symptoms and patient alert without difficulty chewing/swallowing., Starting on 11/23/22 at 1943, Until Fri11/29/22 at 1441 HYDROmorphone (Dilaudid) inj 0.2 mg 0.2 mg, IV Push, Q4H PRN Pain, Breakthrough, Starting on Fri11/24/22 at 2249, Until Fri11/29/22 at 1441 0233 (Given - Provider: Sumaya Lyons, BIJAL)2030 (Given - Provider: Tuyet Junior, BIJAL) 014 (Given - Provider: Tuyet Junior RN)215 (Given - Provider: Danisha Eugene, BIJAL) Ipratropium-Albuterol (Combivent Respimat) inhaler 1 Puff 1 Puff, Inhalation, Q6H PRN Other, wheezing, Starting on Fri11/29/22 at 0142, Until Fri11/29/22 at 1441, Shake well before use! WASTE INFO ( IF NOT SENT HOME WITH PATIENT) : Return unused medication to pharmacy in zip lock bag for disposal into black container labeled SP. 0146 (Given - Provider: Ruma Smiley, BIJAL) melatonin tab 3 mg 3 mg, Oral, HS PRN Sleep, Starting on Fri11/29/22 at 0101, Until Fri11/29/22 at 1441 0129 (Given - Provider: Ruma Smiley, BIJAL) ondansetron (Zofran) inj 4 mg(Linked Group 1) 4 mg, IV Push, Q6H PRN Other, May use for nausea or vomiting if patient unable to take oral ondansetron, Starting on 11/23/22 at 1920, Until Fri11/29/22 at 1441, Admission 1803 (Given - Provider: Deborah Monroy, BIJAL) 0143 (See Alternative - Provider: Tuyet Junior, BIJAL)1939 (See Alternative - Provider: Ruma Smiley RN) 0959 (See Alternative - Provider: Kaylene Fregoso, BIJAL) ondansetron ODT (Zofran) tab 4 mg(Linked Group 1) 4 mg, On Tongue, Q6H PRN Nausea, Vomiting, Starting on 11/23/22 at 1920, Until 11/29/22 at 1441, Admission 1803 (See Alternative - Provider: Deborah Monroy RN) 0143 (Given - Provider: Tuyet Junior, BIJAL)1939 (Given - Provider: Ruma Smiley RN) 0959 (Given - Provider: Kaylene Fregoso, BIJAL) oxyCODONE (Oxy IR) tab 5 mg 5 mg, Oral, Q4H PRN Pain, Severe, Starting on 11/23/22 at 1942, Until 11/29/22 at 1441 0055 (Given - Provider: Sumaya Lyons RN)0600 (Given - Provider: Sumaya Lyons RN)1805 (Given - Provider: Deborah Monroy, BIJAL)2221 (Given - Provider: Danisha Eugene RN) 1940 (Given - Provider: Ruma Smiley RN) 0449 (Given - Provider: Ruma Smiley, BIJAL)1036 (Given - Provider: Kaylene Fregoso, BIJAL) oxyCODONE (Roxicodone) oral syrup 2.5 mg 2.5 mg, Oral, Q4H PRN Pain, Moderate, Starting on 11/23/22 at 1942, Until 11/29/22 at 1441 prochlorperazine (Compazine) inj 10 mg 10 mg, IV Push, Q6H PRN Nausea, Vomiting, 2nd line for nausea/vomiting if zofran doesnt work, Starting on 11/24/22 at 1234, Until 11/29/22 at 1441 0235 (Given - Provider: Sumaya Lyons, BIJAL)2030 (Given - Provider: Tuyet Junior RN) 2155 (Given - Provider: Danisha Eugene RN) Linked Groups Order Group 1: ondansetron ODT (Zofran) tab 4 mgJump to med 4 mg, On Tongue, Q6H PRN Nausea, Vomiting
Starting on 11/23/22 at 1920, Until 11/29/22 at 1441
Admission Or ondansetron (Zofran) inj 4 mgJump to med 4 mg, IV Push, Q6H PRN Other, May use for nausea or vomiting if patient unable to take oral ondansetron
Starting on 11/23/22 at 1920, Until Fri11/29/22 at 1441
Admission documented in this encounter Additional Health Concerns Infection Onset Date Last Indicated Resolved Time ESBL 10/18/2022 10/18/2022 11/25/2022 8:50 AM EST COVID-19 (confirmed) Comment:[facility] 11/1611/16/2022 11/25/2022 11/26/2022 9:17 AM EST COVID-19 (confirmed) Comment:10 days past positive test, asymptomatic 11/16/2022 11/26/2022 11/27/2022 6:[address] ESBL Comment:[facility] 11/1911/19/2022 11/25/2022 documented as of this [...] Advance Directives occurred with: Patient Care Teams Academic Services Coordinator Relationship Specialty Start Date End Date Marcela Pinto MD [address] [facility] [place] [address] PCP - General Internal Medicine 08/04/14 documented as of this encounter
--- OUTSIDE RECORDS SUMMARY | 2023-06-18 02:24 | External Medical Summary ---
Author Name Unknown Address Unknown Organization [facility] [address] [place] [id number] Laboratory Report Ordering Provider Test Date Status FANG CASSIDY 12/02/2022 05:41:00 Final Observation Date Value Abnormality Reference (Units ) Status BUN 12/02/2022 05:41:00 10 6-20 (mg/dL) Final Creatinine 12/02/2022 05:41:00 0.9 0.5-1.0 (mg/dL) Final Glomerular filtration rate/1.73 sq M.predicted [Volume Rate/Area] in Serum, Plasma or Blood by Creatinine-based formula (CKD-EPI) 12/02/2022 05:41:00 68 >=60 (mL/min) Final Performing Location [facility]ORY [facility] [address] [place] [id number]
--- OUTSIDE RECORDS SUMMARY | 2023-06-18 02:24 | External Medical Summary | Summary of Care ---
Author Name Unknown Organization [place] [address] Care Team Providers Care Health Director Name Role Phone Marcela Pinto MD Primary Care Provider + Encounter Details Date Type Department Care Team Description 12/02/2022 Orders Only Lab Mobile Phlebotomy [facility] [address] [facility] [place] [id number] Michelle Gallegos MD [address] [place] [address] [place] [id number] Anemia* Allergies Active Allergy Reactions Severity Noted Date Comments Valsartan 07/10/2010 Enalapril 05/21/2006 Escitalopram Oxalate Nausea/vomiting 10/11/2009 Nauseated Iodinated Contrast Media Nausea/vomiting 2009 IV Contrast Iodine Hives 12/18/2009 IV Contrast [place] Oil-Black Currant-Vit E 07/10/2010 Verapamil 03/21/2004 Bupropion Hcl 10/30/2009 Makes pt sick in the stomach documented as of this encounter (statuses as of 12/02/2022) Medications Medication Sig Dispensed Refills Start Date [...] Respimat 1.25 MCG/ACT Inhalation Aerosol Solution (Tiotropium [place] Monohydrate) Inhale 2 Puffs by mouth in [...] Oral Tablet Extended Release 24 Hour (toPROL XL)Indications: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 [...] as of this encounter (statuses as of 12/02/2022) Active Problems Problem Noted Date Post-op pain [...] as of this encounter (statuses as of 12/02/2022) Resolved Problems Problem Noted Date Resolved Date [...] Hypoxemia 10/08/2011 10/30/2015 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 07/25/2011 05/15/2016 COPD, moderate 07/19/2011 07/28/2019 Overview: [...] as of this encounter (statuses as of 12/02/2022) Immunizations Name Administration Dates Next Due COVID-19 mRNA, LNP-s, No Pre serve, 2-Dose Series (Notice Kiosk) 08/21/2021,12/22/2020,2020 COVID-19, LNP-s, No Preserve , Tyler-sucrose, Ages 12+ (Pfizer) 04/16/2022 Hepatitis B, 20+ yrs 10/01/2017,04/21/2017,03/20 Pneumococcal Conjugate Vacc, 13 Valent (Prevnar) 03/28/2015 Pneumococcal Conjugate Vacci ne, 20-valent ([id number]) 04/01/2022 Pneumococcal Polysaccharide PPV23 (Pneumovax) 05/21/2006 Seasonal [...] Encounters Date Type Specialty Care Team Description 12/02/2022 Laboratory Laboratory Processing [address] [place] [address] 12/04/2022 Snf Visit Family Medicine Michelle Gallegos MD [address] [place] [address] [place] [id number] 12/13/2022 Office Visit General Surgery Teresita Padron PA-Edmund [address] [place] [address] 12/23/2022 Office Visit Orthopedics Eliezer Gifford, DO [address] [facility] [place] [address] 01/03/2023 Office Visit Cardiology Hammad Lopez, DO [address] [place] [address] 01/07/2023 Office Visit Internal Medicine Marcela Pinto MD [address] [place] [address] Scheduled Orders Name Type Priority Associated Diagnoses Orde r Schedule BASIC METABOLIC PANEL Lab Routine Anemia Expected: 12/02/2022, Expires: 12/02/2023 CBC Lab Routine Anemia Expected: 12/02/2022, Expires: 12/02/2023 Health Maintenance Due Date Last Done Comments [...] Additional history exists CKD PHOS USE SMARTSET 92254 08/05/202307/14, 02/19/2022, 03/09/2021, Additional history exists DIABETES-FOOT EXAM 10/10/2023 10/10/2022, 0 11/19/2021, 12/21/2020, Additional history exists Depression Screening, Annual for Pts 12 and Over 10/10/2023 10/10/2022 O2 ASSESSMENT COMPLETED IN PAST YEAR FOR COPD 11/24/2023 11/24/2022 CKD HGB USE SMARTSET 47224 11/29/202311/29, 11/28/2022, 11/27/2022, Additional history exists DXA [...] Date Last Indicated Resolved Time ESBL Comment:[facility] 11/1911/19/2022 11/25/2022 documented as of [...] Advance Directives occurred with: Patient Care Teams Health Director Relationship Specialty Start Date End Date Marcela Pinto MD [address] [place] [address], [place] [address] PCP - General Internal Medicine 08/04/14 documented as of this encounter
--- OUTSIDE RECORDS SUMMARY | 2023-06-18 02:24 | External Medical Summary | Continuity Of Care Document ---
Author Name Unknown Address [address] [place] [address] Organization [facility] ( ) Care Team Providers Care Underwater Hunter Name Role Phone Gabriel Gallegosyoon Primary Care Provider +[phone] VITAL SIGNS Date Time Diastolic blood pressure Systolic blood pressure Body height Body weight Temperature SpO2 Blood Sugar Pulse Respirations 48392 217 89782 6 81.00 mm[Hg] - Sitting 145.00 mm[Hg] - Sitting 97.90 Ear 88.00/ min 18.00/min 13821 217 74852 3 212.00 NI 33862 217 90888 7 65 NI 35573 218 72274 8 29952 218 48685 5 84.00 mm[Hg] - Sitting 154.00 mm[Hg] - Sitting 97.70 X-Other 92.00/ min 26093 218 36977 0 84.00 mm[Hg] - Lying Down 154.00 mm[Hg] - Lying Down 97.70 Ear 92.00/ min 18.00/min 05890 218 35110 4 97.70 Oral 02794 218 33921 1 84.00 mm[Hg] - Sitting 154.00 mm[Hg] - Sitting 18.00/min 08162 218 76748 5 53.00 mm[Hg] - Sitting 95.00 mm[Hg] - Sitting 97.20 X-Other 93.00 % 75.00/ min 14967 218 40691 0 66875 219 35657 1 78.00 mm[Hg] - Lying Down 137.00 mm[Hg] - Lying Down 96.10 Oral 96.00 % 65.00/ min 13269 219 67736 9 78.00 mm[Hg] - Sitting 137.00 mm[Hg] - Sitting 96.10 Ear 65.00/ min 18.00/min 13730 219 53693 0 78.00 mm[Hg] - Sitting 137.00 mm[Hg] - Sitting 95.70 Axillary 65.00/ min 18.00/min 26023 220 21643 0 Immunizations Vaccine Date Status COVID-19 2020 Completed COVID-19 12/22/2020 Completed COVID-19 08/21/2021 Completed COVID-19 04/16/2022 Completed Influenza 06/27/2022 Completed
--- OUTSIDE RECORDS SUMMARY | 2023-06-18 02:24 | External Medical Summary ---
Author Name Unknown Address Unknown Organization [facility] [address] [place] [id number] Laboratory Report Ordering Provider Test Date Status FANG CASSIDY 12/06/2022 05:40:00 Final Observation Date Value Abnormality Reference (Units ) Status BUN 12/06/2022 05:40:00 12 6-20 (mg/dL) Final Creatinine 12/06/2022 05:40:00 0.9 0.5-1.0 (mg/dL) Final Glomerular filtration rate/1.73 sq M.predicted [Volume Rate/Area] in Serum, Plasma or Blood by Creatinine-based formula (CKD-EPI) 12/06/2022 05:40:00 63 >=60 (mL/min) Final Performing Location LAB[facility]ATORY [facility] [address] [place] [address]
--- OUTSIDE RECORDS SUMMARY | 2023-06-18 02:24 | External Medical Summary | Summary of Care ---
Author Name Unknown Organization [place] [address] Care Team Providers Care Elevator Installer Name Role Phone Marcela Pinto MD Primary Care Provider + Reason for Visit * Reason Onset Date Comments Prison Visit - Admission 12/04/2022 Encounter Details Date Type Department Care Team Description 12/04/2022 Prison Visit [address] [place] [address] Michelle Gallegos MD [address] [place] [address] [place] [phone] Wound dehiscence*; History of 2019 novel coronavirus disease (COVID-19); Acute blood loss anemia; Chronic systolic heart failure ([facility]); Type 2 diabetes mellitus with stage 3a chronic kidney disease, without long-term current use of insulin ([facility]); HTN, goal below 140/90; Subclinical hyperthyroidism; Chronic hypoxemic respiratory failure ([facility]); Pulmonary HTN ([facility]); Paroxysmal atrial fibrillation ([facility]); Morbid obesity with BMI of 40.0-44.9, adult ([facility]); COPD, group B, 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 ([facility]); Sleep apnea, obstructive; Presence of Watchman left atrial appendage closure device Allergies Active Allergy Reactions Severity Noted Date Comments Valsartan 07/10/2010 Enalapril 05/21/2006 Escitalopram Oxalate Nausea/vomiting 10/11/2009 Nauseated Iodinated Contrast Media Nausea/vomiting 2009 IV Contrast Iodine Hives 12/18/2009 IV Contrast Gervais Oil-Black Currant-Vit E 07/10/2010 Verapamil 03/21/2004 Bupropion Hcl 10/30/2009 Makes pt sick in the stomach documented as of this encounter (statuses as of 12/04/2022) Medications Medication Sig Dispensed Refills Start Date [...] Respimat 1.25 MCG/ACT Inhalation Aerosol Solution (Tiotropium [place] Monohydrate) Inhale 2 Puffs by mouth in the morning. 0 Active Dicyclomine HCl 20 MG Oral Tablet (Bentyl)Indication s:Chronic constipation TAKE 1 TABLET BY MOUTH EVERY DAY 90 Tablet 2 2 Active Ferrous Sulfate 325 (65 Fe) MG Oral Tablet (Feosol) Take 1 Tablet by mouth in the morning. 0 2 Active Zafirlukast 20 MG Oral Tablet (Accolate)Indicati [...] 2 Active predniSONE 50 MG Oral Tablet (Deltasone)Indicat ions:Colonic diverticular abscess One tablet 13 hours, 7 hours and 1 hour prior to scheduled dye 3 Tablet 0 2 Active Ipratropium-Albute rol 20-100 MCG/ACT Inhalation Aerosol [...] and at bedtime. 120 Tablet 0 3 023 Active oxyCODONE HCl 5 MG Oral [...] for cough. 120 mL 0 3 Active Enoxaparin Sodium 40 MG/0.4ML Injection Solution Prefilled Syringe (Lovenox) Inject 40 mg under the skin in the morning for 5 days. Last dose on 12/04/22.. 2.8 mL 0 3 023 Discontinued documented as of this encounter (statuses as of 12/04/2022) Active Problems Problem Noted Date Presence of Watchman left atrial appenda ge [...] as of this encounter (statuses as of 12/04/2022) Resolved Problems Problem Noted Date Resolved Date [...] Hypoxemia 10/08/2011 10/30/2015 Genetic Sleep Disorder Research Other*[id number] 07/25/2011 05/15/2016 COPD, moderate 07/19/2011 07/28/2019 Overview: [...] as of this encounter (statuses as of 12/04/2022) Immunizations Name Administration Dates Next Due COVID-19 mRNA, LNP-s, No Pre serve, 2-Dose Series (LOYAL3) 08/21/2021,12/22/2020,2020 COVID-19, LNP-s, No Preserve , Tyler-sucrose, Ages 12+ (Pfizer) 04/16/2022 Hepatitis B, 20+ yrs 10/01/2017,04/21/2017,03/20 Pneumococcal Conjugate Vacc, 13 Valent (Prevnar) 03/28/2015 Pneumococcal Conjugate Vacci ne, 20-valent ([id number]) 04/01/2022 Pneumococcal Polysaccharide PPV23 (Pneumovax) 05/21/2006 Seasonal [...] as of this encounter Progress Notes * Michelle Gallegos MD - 12/04/2022 2:44 PM EST ADMISSION HISTORY and PHYSICAL TRANSITION EVENT: Type: SNF admission Date: November 29 Code Status: Full Code Name: Nina Harrington Date of : 1940 This note pertains to care provided at [facility]. Please see facility medical record for original note. This note is not to be edited or addended in [employer]. Editing or addending needs to occur in the facilities medical record. S: Nina Harrington had been admitted to [facility] from [facility] for PT and OT. Recently admitted to [facility] on 11/23/22 because of wound dehiscence and respiratory failure due to COVID-19 infection and was transferred here and admitted on 11/29/2022. Patient of Dr. Marcela Pinto with complicated PMH of type 2 diabetes mellitus with stage 3a CKD, hypertension, chronic systolic CHF, asthma/COPD with chronic respiratory failure on chronic oxygen, JORDAN, dyslipidemia, morbid obesity,GERD, PAF s/p Watchman's device, pulmonary hypertensin, hyperthyroidism, h/o ESBL E Coli UTIs, and IBS who was originally admitted to [facility] on 11/01/22 for planned low anterior resection partial colectomy and takedown of colorectal fistula. Patient improved after the surgery and was discharged for rehab at [facility]. While at [facility], patient became ill and tested positive for COVID-19 infection on 11/15/22 and developed acute on chronic hypoxic respiratory failure and was transferred to [facility] and admitted. She was treated with IV remdesivir and dexamethasone with improvement in her oxygen levels. Patient was coughing from the COVID-19 and developed wound dehiscence at [facility] with visualization of intestines. She was then transferred back to [facility] on 11/23/22 for further management. Patient was taken back to the OR on 11/24/2022 and underwent exploratory laparotomy and fascial closure. She had no complications postoperatively. She was given Tylenol and oxycodone for pain control. She was placedon Lovenox for DVT prophylaxis, with the last dose being today. She was given guaifenesin-DM cough syrup as well. Patient's hemoglobin on discharge was 7.6 (11/29/22) and creatinine was 0.7. Hemoglobin dropped to 7.1 on 12/02/22 and patient reported worsening fatigue and shortness of breath. She was sent to [facility] for outpatient transfusion of 1 unit of PRBCs on 12/03/22. Patient reports she is still feeling fatigued. Feels her shortness of breath is back to baseline and cough is improving. Notes some drainage from her abdominal incision, which is being loosely packedand wearing abdominal binder as per orders. Feels her pain is controlled. Does report worse edema in her legs since being in the hospital. Her Lasix 40 mg twice a day was continued on discharge and she reports voiding large amounts. She is on oxygen 2 L during the day and 4 L at night. Patient also reports a sore, red area on her left upper arm at former IV site. Appetite is fair. Reports moving her bowels. Lives at home alone. Past Medical History: Patient Active Problem List Diagnosis Code Asthma [...] hemoglobin A1c goal of less than 7.5% ([facility]) E11.9 Elevated plasma metanephrines R79.89 Irritable bowel syndrome with constipation K58.1 HECTOR (generalized anxiety disorder) F41.1 COPD, group B, 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 ([facility]) J44.9 Morbid obesity with BMI of 40.0-44.9, adult ([facility]) E66.01, Z68.41 Gastro-esophageal reflux disease without esophagitis K21.9 Paroxysmal atrial fibrillation ([facility]) I48.0 Chronic systolic heart failure ([facility]) I50.22 Pulmonary HTN ([facility]) I27.20 Chronic hypoxemic respiratory failure ([facility]) J96.11 Chronic kidney disease, stage 3a ([facility]) N18.31 Subclinical hyperthyroidism E05.90 History of ESBL E. coli infection Z86.19 Type 2 diabetes mellitus with stage 3a chronic kidney disease, without long- term current use ofinsulin ([facility]) E11.22, N18.31 Gastroparesis K31.84 Ischemic colitis ([facility]) K55.9 Asthma, mild persistent J45.30 Diverticulitis of intestine with abscess K57.80 Protein-calorie malnutrition ([facility]) E46 UTI due to extended-spectrum beta lactamase (ESBL) producing Escherichia coli N39.0, B96.29, Z16.12 History of colon resection Z90.49 Wound dehiscence T81.30XA History of 2019 novel coronavirus disease (COVID-19) Z86.16 Post-op pain G89.18 Presence of Watchman left atrial appendage closure device Z95.818 Current Outpatient Medications Medication Sig Dispense Refill VITAMIN D 1000 UNITS PO TABS Take 2 Tablets by mouth in the morning. LUMIGAN 0.01 % OP SOLN INSTILL 1 DROP BY TOPICAL ROUTE EVERY BEDTIME 4 AZOPT 1 % OP SUSP INSTILL 1 DROP BY OPHTHALMIC ROUTE 2 TIMES EVERY DAY INTO BOTH EYES (Patient not taking: Reported on 10/31/2022) 4 oxygen GAS Use 2 L/min(Oxygen) as directed daily. and 4 L/min at night. Multiple Vitamins-Minerals (ONE DAILY MULTIVITAMIN WOMEN) TABS one pill each day docusate sodium (COLACE) 100 MG Capsule Take 1 Cap by mouth daily. 90 Cap 0 albuterol sulfate (PROVENTIL) (2.5 MG/3ML) 0.083% nebulizer solution USE ONE NEBULIZER TREATMENT TWICE A DAY DIRECTED FOR WORSENING ASTHMA. J45.909, J44.9 225 mL 1 Albuterol Sulfate (VENTOLIN HFA) 108 (90 Base) MCG/ACT AERS Inhale 2 Puffs by mouth 2 times a day. Aspirin 81 MG Oral Tablet Delayed Release Take 1 Tablet by mouth in the morning. Spiriva Respimat 1.25 MCG/ACT Inhalation Aerosol Solution (Tiotropium [place] Monohydrate) Inhale 2 Puffs by mouth in the morning. Dicyclomine HCl 20 MG Oral Tablet (Bentyl) TAKE 1 TABLET BY MOUTH EVERY DAY 90 Tablet 2 Ferrous Sulfate 325 (65 Fe) MG Oral Tablet (Feosol) Take 1 Tablet by mouth in the morning. Zafirlukast 20 MG Oral Tablet (Accolate) TAKE 1 TABLET BY MOUTH EVERY DAY 90 Tablet 3 Sertraline HCl 25 MG Oral Tablet (Zoloft) TAKE 1 TABLET BY MOUTH EVERY DAY IN THE MORNING 90 Tablet 1 Omeprazole 20 MG Oral Capsule Delayed Release (PriLOSEC) TAKE 1 CAPSULE BY MOUTH TWICE A DAY 180 Capsule 3 Ondansetron 8 MG Oral Tablet Disintegrating (Zofran) DISSOLVE 1 TABLET ON TONGUE EVERY 8 HOURS NEEDED FOR NAUSEA 60 Tablet 5 Polyethylene Glycol 3350 17 GM Oral Packet (Miralax) Take 1 Packet by mouth 2 times a day as needed for Constipation. Glimepiride 2 MG Oral Tablet (Amaryl) TAKE 1 TABLET BY MOUTH EVERY DAY WITH BREAKFAST 90 Tablet1 Magnesium Chloride 64 MG Oral Tablet Delayed Release (Mag-64) Take 1 Tablet by mouth in the morning. Klor-Con M20 20 MEQ Oral Tablet Extended Release (Potassium Chloride Annalisa ER) TAKE 1 TABLET BY MOUTH EVERY DAY 90 Tablet 3 predniSONE 50 MG Oral Tablet (Deltasone) One tablet 13 hours, 7 hours and 1 hour prior to scheduled dye 3 Tablet 0 Ipratropium-Albuterol 20-100 MCG/ACT Inhalation Aerosol Solution (Combivent Respimat) TAKE 1 PUFF BY MOUTH 4 TIMES A DAY 12 g 1 Furosemide 40 MG Oral Tablet (Lasix) Take 1 Tablet (40 mg) by mouth in the morning and 1 Tablet(40 mg) before bedtime. 180 Tablet 3 Atorvastatin Calcium 40 MG Oral Tablet (Lipitor) TAKE BY MOUTH 1 TABLET IN THE MORNING. 90 Tablet 4 Spironolactone 25 MG Oral Tablet (Aldactone) Take 0.5 Tablets (12.5 mg) by mouth once a day on Friday, Friday, and Friday only. 45 Tablet 3 methIMAzole 5 MG Oral Tablet (Tapazole) Take 1 Tablet (5 mg) by mouth in the morning. 90 Tablet1 Metoprolol Succinate ER 25 MG Oral Tablet Extended Release 24 Hour (toPROL XL) TAKE 1/2 TABLET BY MOUTH EVERY DAY 45 Tablet 3 Promethazine HCl 25 MG Oral Tablet (Phenergan) TAKE 1 TABLET BY MOUTH EVERY 6 HOURS NEEDED FOR NAUSEA 60 Tablet 2 Alum & Mag Hydroxide-Simeth 400-400-40 MG/5ML Oral Suspension (Mi-Acid II) Take 30 mL by mouth every 4 hours as needed for Indigestion. 355 mL 0 Sucralfate 1 GM Oral Tablet (Carafate) Take 1 Tablet by mouth 4 times a day before meals and atbedtime. 120 Tablet 0 oxyCODONE HCl 5 MG Oral Tablet (Oxy IR) Take 1 Tablet by mouth every 4 hours as needed for Other (severe incisional pain). 30 Tablet 0 Acetaminophen 500 MG Oral Tablet (Tylenol) 2 caps every 8 hours for 3 days, then 1 cap every 4 hours as needed for pain. Do not exceed 3000mg acetaminophen (Tylenol) every 24 hours. 1 Tablet 0 guaiFENesin-DM 100-10 MG/5ML Oral Syrup (Robitussin DM) Take 5 mL by mouth every 6 hours. For 3days then as needed for cough. 120 mL 0 No current facility-administered medications for this visit. Review of patient's allergies indicates: Allergen Reactions Diovan [Valsartan] Enalapril Escitalopram Oxalate Nausea/vomiting Nauseated Iodinated Contrast Media Nausea/vomiting IV Contrast Iodine Hives IV Contrast Gervais Oil-Black Currant-Vit E Verapamil Wellbutrin [Bupropion Hcl] Makes pt sick in the stomach 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 Tobacco Use Smoking status: Never Smokeless tobacco: Never Substance Use Topics Alcohol use: No Vaping/E-Cigarette Use Vaping/E-Cigarette Use Never User Vaping/E-Cigarette Substances Nicotine No Other No Flavoring No THC No Cannabidiol (CBD) No Vaping/E-Cigarette Devices Disposable No Pre-filled or Refillable Cartridge No Refillable Tank No Pre-filled Pod No Past Surgical History: Procedure Laterality Date APPENDECTOMY W/OTHER PROCEDURE 1960 when removed gall bladder COLONOSCOPY THRU STOMA, W/BIOPSY 03/20/2012 hyperplastic polyps rpt 3 years. COLONOSCOPY, DIAGNOSTIC (RECTUM) 05/29/2016 poor prep, diverticulosis/inpt [facility] COLONOSCOPY, DIAGNOSTIC (RECTUM) 06/05/2017 diverticulosis, repeat 3 yrs/[facility] COLONOSCOPY, DIAGNOSTIC (RECTUM) 02/28/2018 adenomatous polyps, diverticulosis, repeat 3 yrs / [facility] COLONOSCOPY, DIAGNOSTIC (RECTUM) 05/08/2020 inflammatory tissue on bx, diverticulosis / [facility] CYSTOSCOPY/INSERTION OF STENT Bilateral 11/01/2022 CYSTOURETHROSCOPY WITH INSERTION URETERAL STENT DUAL SERVICE performed by Saeed Flores MD at [facility] EGD, FLEXIBLE, DIAGNOSTIC 04/29/2014 normal/inpt [facility] EGD, FLEXIBLE, DIAGNOSTIC 05/29/2016 fundic submucosal mass/inpt [facility] EGD, FLEXIBLE, DIAGNOSTIC 05/08/2020 normal / [facility] EGD, FLEXIBLE,W/ENDOSCOPIC US 11/08/2016 inflammatory changes, stomach lesion, repeat EUS 1.5 yrs/[facility] EGD, FLEXIBLE,W/ENDOSCOPIC US 05/01/2018 stromal cell (smooth muscle) neoplasm, CBD dilation, repeat 2 yrs (needs OV prior)/[facility] EGD, FLEXIBLE,W/ENDOSCOPIC US 09/01/2020 leiomyoma / [facility] EXPLORATION OF ABDOMEN N/A 11/23/2022 EXPLORATORY LAPAROTOMY performed by Mendoza Rodriguez MD at OR [facility] EXPLORATION OF ABDOMEN N/A 11/24/2022 EXPLORATORY LAPAROTOMY performed by Mendoza Rodriguez MD at [facility] INCISIONAL HERNIA REPAIR, LAP, REDUCIBLE 09/29/2012 Repair of incarcerated supraumbilical (incisional) hernia with Atrium mesh 09/29/12 IR ASPIRATION ABSCESS/COLLECTION 07/25/2022 LAPAROSCOPIC PARTIAL COLECTOMY W/COLOPROCTOSTOMY N/A 11/01/2022 LAPAROSCOPIC PARTIAL COLECTOMY WITH COLOPROCTOSTOMY performed by Dionte Snyder MD at [facility] LIGATE/CUT OVIDUCT(S) REMOVAL OF TONSILS, AGE 12+ age 11 REMOVE GALLBLADDER 1960 SIGMOIDOSCOPY, DIAGNOSTIC 04/29/2014 stool in rectum/inpt [facility] SMALL BOWEL ENDOSCOPY, REMOVE FOREIGN BODY mesh from prior hernia surgery, wrapped around small bowel. small bowel surgery Family History Problem Relation Age of Onset Breast Cancer Mother Heart disease Father No Known Problems Sister COPD Brother COPD Brother COPD Brother Diabetes Aunt (Unspecified) Other (JORDAN) Son not diagnosed Lung Disorder Grandfather (Paternal) ?COPD vs asthma Asthma Daughter Family Status Relation Status Mo at age 61 breasst cancer Fa at age 63 fall injury Sis Alive Bro Alive Bro Alive Bro Alive AUNT (Not Specified) Son Niko Alive PGFA (Not Specified) Son Son Alive Niko Alive Niko Alive Results for orders placed or performed in visit on 12/02/22 BASIC METABOLIC PANEL Result Value Ref Range BUN 10 6 - 20 mg/dL Creatinine 0.9 0.5 - 1.0 mg/dL Estimated Glomerular Filtration Rate 68 >=60 mL/min Sodium 137 135 - 146 mmol/L Potassium 3.8 3.5 - 5.1 mmol/L Chloride 99 98 - 107 mmol/L CO2 31 22 - 32 mmol/L Anion Gap 7 7 - 15 mmol/L Glucose 68 (L) 70 - 120 mg/dL Calcium 8.2 (L) 8.4 - 10.2 mg/dL CBC Result Value Ref Range WBC 7.90 4.00 - 10.80 K/uL RBC 2.58 3.85 - 5.15 M/uL HGB 7.1 (L) 12.0 - 15.3 g/dL HCT 23.7 (L) 36.0 - 45.2 % MCV 91.9 81.5 - 97.5 fL MCH 27.5 27.0 - 34.0 pg MCHC 30.0 32.0 - 36.0 g/dL RDW 15.0 11.5 - 15.5 % PLT 320 140 - 400 K/uL MPV 9.8 6.6 - 11.1 fL *Note: Due to a large number of results and/or encounters for the requested time period, some results have not been displayed. A complete set of results can be found in Results Review. Review of Systems: Constitutional ROS: No change in weight, No fevers, sweats, or chills and +weakness and fatigue Eye ROS: No recent significant change in vision and No eye pain, redness, discharge Ear ROS: No ear pain, No drainage and No tinnitus or vertigo Nose ROS: No history of frequent colds or sinusitis, No nasal stuffiness and No history of Hay Fever Mouth/Throat ROS: No bleeding gums, No thrush or No sore throat Pulmonary ROS: No cough, sputum, or hemoptysis, No wheezing and +as per HPI Cardiovascular ROS: No chest pain, No orthopnea, No paroxysmal nocturnal dyspnea, No palpitations, No syncope and +SOB and edema Gastrointestinal ROS: No significant heartburn, No hematemesis, No blood in stools or black tarry stools, No abdominal bloating or early satiety, No dysphagia and +recent abdominal surgery as above Genito-Urinary Female ROS: No dysuria and No frequency Musculoskeletal/Extremities ROS: +osteoarthritis Hematologic/Lymphatic ROS: No coagulation disorder, No chills and +s/p transfusion 12/03/22 Skin/Integumentary ROS: No rash Neurologic ROS: No headaches and No seizures Endocrine ROS: +type 2 diabetes Psychiatric ROS: +depression on sertraline ADL skills: dependent Ambulates with walker OBJECTIVE: PHYSICAL EXAM: I reviewed the most recent facilities vitals. Refer to vital signs flowsheet in [facility] chart.General: alert, no distress, well nourished, well developed, obese and chronically ill appearing Head: Normocephalic, No masses, lesions, tenderness or abnormalities Eye Exam: PERRLA, extraocular movements intact, conjunctiva are pink and non- injected, sclera clear Ears: External ears normal Nose: no mucosal erythema, no mucosal edema, no purulent discharge Oropharynx: no exudate, no erythema, lips, buccal mucosa, and tongue normal and mucous membranes are moist Neck: supple, no adenopathy, no bruits Heart: regular rate & rhythm, no gallops and distant heart tones Lungs: chest symmetric with normal AP diameter, no chest deformities noted, no chest wall tenderness, decreased breath sounds Abdomen: abdomen soft, no masses or organomegaly and +large midline incision with deann in place and skin edges gaping in between deann. Packing in place with small amount of serosanguinous drainage on dressings. No surrounding erythema, warmth, or tenderness Extremities: no clubbing, no cyanosis, 2+ edema bilateral lower extremities Neuro Exam: alert & oriented x 3 with fluent speech, no focal motor/sensory deficits ASSESSMENT: Wound dehiscence (Primary) History of 2019 novel coronavirus disease (COVID-19) Acute blood loss anemia Chronic systolic heart failure (HCC) Type 2 diabetes mellitus with stage 3a chronic kidney disease, without long-term current use of insulin (HCC) HTN, goal below 140/90 Subclinical hyperthyroidism Chronic hypoxemic respiratory failure (HCC) Pulmonary HTN (HCC) Paroxysmal atrial fibrillation (HCC) Morbid obesity with BMI of 40.0-44.9, adult (HCC) COPD, group B, 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 (HCC) Sleep apnea, obstructive Presence of Watchman left atrial appendage closure device PLAN: 1. Continue present medication(s): Schedule labs: CBC and BMP on 12/06/22 for f/u of acute blood loss anemia s/p transfusion of 1 unit and CKD on furosemide for edema/CHF. Warm compresses every shift for 7 days to left upper extremity tender IV site. 2. Admission orders, medications, labs, hospital records and care plan reviewed. 3. Physical Therapy, Occupational Therapy and Speech Therapy ordered. 4. Care plan reviewed. 5. Advance Directives were discussed: Full Code 6. Longterm Home Treatment Given: Other n/a Electronically signed by: Michelle Gallegos MD documented in this encounter Plan of Treatment Upcoming Encounters Date Type Specialty Care Team Description 12/13/2022 Office Visit General Surgery Teresita Padron, PA-C [address] [place] [address] 12/23/2022 Office Visit Orthopedics Eliezer Gifford, DO [address] [place] [address] 01/03/2023 Office Visit Cardiology Hammad Lopez, DO [address] [place] [address] 01/07/2023 Office Visit Internal Medicine Marcela Pinto MD [address] [place] [id number] Health Maintenance Due Date Last Done Comments [...] Additional history exists CKD PHOS USE SMARTSET 83638 08/05/202307/14, 02/19/2022, 03/09/2021, Additional history exists DIABETES-FOOT EXAM 10/10/2023 10/10/2022, 0 11/19/2021, 12/21/2020, Additional history exists Depression Screening, Annual for Pts 12 and Over 10/10/2023 10/10/2022 O2 ASSESSMENT COMPLETED IN PAST YEAR FOR COPD 11/24/2023 11/24/2022 CKD HGB USE SMARTSET 11340 12/02/202312/02, 11/29/2022, 11/28/2022, Additional history exists DXA [...] Primary Disruption of external operation (surgical) wound History of 2019 novel coronavirus disease (COVID-19) Acute blood loss anemia Acute posthemorrhagic anemia Chronic systolic heart failure (HCC) Chronic systolic heart failure Type 2 diabetes mellitus with stage 3a chronic kidney disease, without long-term current use of insulin (HCC) HTN, goal below 140/90 Unspecified essential hypertension Subclinical hyperthyroidism Thyrotoxicosis without mention of goiter or other cause, without mention of thyrotoxic crisis or storm Chronic hypoxemic respiratory failure (HCC) Chronic respiratory failure Pulmonary HTN (HCC) Other chronic pulmonary heart diseases Paroxysmal atrial fibrillation (HCC) Atrial fibrillation Morbid obesity with BMI of 40.0-44.9, adult (HCC) Morbid obesity COPD, group B, 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 (HCC) Sleep apnea, obstructive Obstructive sleep apnea (adult) (pediatric) Presence of Watchman left atrial appendage closure device documented in this encounter Additional Health Concerns [...] Advance Directives occurred with: Patient Care Teams Elevator Installer Relationship Specialty Start Date End Date Marcela Pinto MD [address] [place] [address] [place] [address] PCP - General Internal Medicine 08/04/14 documented as of this encounter
--- OUTSIDE RECORDS SUMMARY | 2023-06-18 02:24 | External Medical Summary | Summary of Care ---
Author Name Unknown Organization [place] [address] Care Team Providers Care Popcorn Candy Maker Name Role Phone Marcela Pinto MD Primary Care Provider + Reason for Visit * Reason Onset Date Comments Skilled Visit 12/05/2022 Encounter Details Date Type Department Care Team Description 12/05/2022 Senior Living Visit [facility] [address] [place] [address] Mabel Paul PA-C [address] [place] [address] Wound dehiscence*; Acute blood loss anemia; History of 2019 novel coronavirus disease (COVID-19); Type 2 diabetes mellitus with stage 3a chronic kidney disease, without long-term current use of insulin (HCC); Paroxysmal atrial fibrillation (HCC) Allergies Active Allergy Reactions Severity Noted Date Comments Valsartan 07/10/2010 Enalapril 05/21/2006 Escitalopram Oxalate Nausea/vomiting 10/11/2009 Nauseated Iodinated Contrast Media Nausea/vomiting 2009 IV Contrast Iodine Hives 12/18/2009 IV Contrast [place] Oil-Black Currant-Vit E 07/10/2010 Verapamil 03/21/2004 Bupropion Hcl 10/30/2009 Makes pt sick in the stomach documented as of this encounter (statuses as of 12/05/2022) Medications Medication Sig Dispensed Refills Start Date [...] Respimat 1.25 MCG/ACT Inhalation Aerosol Solution (Tiotropium Blue Grass Monohydrate) Inhale 2 Puffs by mouth in [...] Oral Tablet Extended Release 24 Hour (toPROL XL)Indications: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 heart failure with reduced ejection fraction [...] as of this encounter (statuses as of 12/05/2022) Active Problems Problem Noted Date Full code [...] as of this encounter (statuses as of 12/05/2022) Resolved Problems Problem Noted Date Resolved Date [...] Hypoxemia 10/08/2011 10/30/2015 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 07/25/2011 05/15/2016 COPD, moderate 07/19/2011 07/28/2019 Overview: [...] as of this encounter (statuses as of 12/05/2022) Immunizations Name Administration Dates Next Due COVID-19 mRNA, LNP-s, No Pre serve, 2-Dose Series ([employer] 08/21/2021,12/22/2020,2020 COVID-19, LNP-s, No Preserve , Tyler-sucrose, Ages 12+ (Pfizer) 04/16/2022 Hepatitis B, 20+ yrs 10/01/2017,04/21/2017,03/20 Pneumococcal Conjugate Vacc, 13 Valent (Prevnar) 03/28/2015 Pneumococcal Conjugate Vacci ne, 20-valent ([id number]) 04/01/2022 Pneumococcal Polysaccharide PPV23 (Pneumovax) 05/21/2006 Seasonal [...] Progress Notes * Mabel Paul PA-C - 12/05/2022 1:46 PM EST Name: Nina Harrington Date of :1940 TRANSITION EVENT: Type: Skilled visit Date: December 05 Code Status: Full Code This note pertains to care provided at [facility]. Please see facility medical record for original note. This note is not to be edited or addended in [facility]. Ed[facility]. Subjective: Nina Harrington is a 82 year old female. Patient being seen for skilled visit Chief Complaint Patient presents with Skilled Visit HPI: pt is here for rehabilitation following repair of abdominal incisional dehiscence. Still some serous drainage noted on dressing but not much. No significant pain in incision. No nausea, vomiting, eating well. No chills or fever. BMs stable. Pt had one unit PRBCs two days ago as outpatient due to acute blood loss anemia. States she feels abit stronger less fatigue. Family who was present state pt "looks good today". Vital signs stable. CBC Results: Results for orders placed or performed in visit on 12/02/22 CBC Result Value Ref Range WBC 7.90 [...] K/uL MPV 9.8 6.6 - 11.1 fL Hemoglobin Results: Lab Results Component Value Date/Time HGB - [facility] 7.1 (L) 12/02/2022 05:41 AM HGB - [facility] 7.6 (L) 11/29/2022 08:04 AM HGB - [facility] 8.0 (L) 11/28/2022 07:51 AM HGB - [facility] 11.4 (L) 05/27/2020 04:51 PM HGB - [facility] 11.7 (L) 05/18/2020 01:13 PM HGB - [facility] 12.3 04/03/2020 01:58 PM Basic Panel Results: Results for orders placed or [...] Calcium 8.2 (L) 8.4 - 10.2 mg/dL Creatinine Results: Lab Results Component Value Date/Time CREATININE - [facility] 0.9 12/02/2022 05:41 AM CREATININE - [facility] 0.7 11/29/2022 08:04 AM CREATININE - [facility] 0.7 11/28/2022 07:51 AM CREATININE - [facility] 1.0 05/27/2020 04:51 PM CREATININE - [facility] 1.1 (H) 05/18/2020 01:13 PM CREATININE - [facility] 1.0 12/30/2019 10:53 AM CREATININE NIKO 221 08/26/2019 02:57 PM CREATININE NIKO 57 01/16/2018 01:58 PM CREATININE NIKO - [facility] 78 06/27/2022 03:41 PM CREATININE NIKO - [facility] 75 04/24/2021 01:21 PM CREATININE, 24 HOUR URINE - [facility] 1.106 02/26/2017 09:11 AM CREATININE, RANDOM URINE - [facility] 69 02/19/2022 04:09 PM CREATININE, RANDOM URINE - [facility] 128 07/09/2019 01:57 PM CREATININE, RANDOM URINE - [facility] 90 07/27/2018 11:32 AM CREATININE, RANDOM URINE - [facility] 101 05/19/2017 12:09 PM CREATININE-OUTSIDE LAB 0.84 08/19/2022 12:00 AM CREATININE-OUTSIDE LAB 0.80 08/12/2022 12:00 AM CREATININE-OUTSIDE LAB 1.15 (A) 06/21/2022 12:00 AM Potassium Results: Lab Results Component Value Date/Time POTASSIUM - [facility] 3.8 12/02/2022 05:41 AM POTASSIUM - [facility] 3.5 11/29/2022 08:04 AM POTASSIUM - [facility] 3.8 11/28/2022 07:51 AM POTASSIUM - [facility] 4.0 05/27/2020 04:51 PM POTASSIUM - [facility] 4.3 05/18/2020 01:13 PM POTASSIUM - [facility] 4.7 12/30/2019 10:53 AM POTASSIUM-OUTSIDE LAB 3.8 08/19/2022 12:00 AM POTASSIUM-OUTSIDE LAB 3.9 08/12/2022 12:00 AM POTASSIUM-OUTSIDE LAB 4.0 06/21/2022 12:00 AM Sodium Results: Lab Results Component Value Date/Time SODIUM - [facility] 137 12/02/2022 05:41 AM SODIUM - [facility] 138 11/29/2022 08:04 AM SODIUM - [facility] 138 11/28/2022 07:51 AM SODIUM - [facility] 140 05/27/2020 04:51 PM SODIUM - [facility] 141 05/18/2020 01:13 PM SODIUM - [facility] 139 12/30/2019 10:53 AM Patient Active Problem List Diagnosis Code Asthma [...] Watchman left atrial appendage closure device Z95.818 Past Medical History: Diagnosis Date ACEI/ARB contraindicated Asthma Carpal tunnel syndrome DM type 2, goal: symptom mgmt ([facility]) Generalized osteoarthritis HTN, goal below 140/90 Mixed dyslipidemia Past Surgical History: Procedure Laterality Date APPENDECTOMY W/OTHER PROCEDURE 1960 when removed gall bladder COLONOSCOPY THRU STOMA, W/BIOPSY 03/20/2012 hyperplastic polyps rpt 3 years. COLONOSCOPY, DIAGNOSTIC (RECTUM) 05/29/2016 poor prep, diverticulosis/inpt [facility] COLONOSCOPY, DIAGNOSTIC (RECTUM) 06/05/2017 diverticulosis, repeat 3 yrs/[facility] COLONOSCOPY, DIAGNOSTIC (RECTUM) 02/28/2018 adenomatous polyps, diverticulosis, repeat 3 yrs / [facility] COLONOSCOPY, DIAGNOSTIC (RECTUM) 05/08/2020 inflammatory tissue on bx, diverticulosis / [facility] CYSTOSCOPY/INSERTION OF STENT Bilateral 11/01/2022 CYSTOURETHROSCOPY WITH INSERTION URETERAL STENT DUAL SERVICE performed by Saeed Flores MD at OR [facility] EGD, FLEXIBLE, DIAGNOSTIC 04/29/2014 normal/inpt [facility] EGD, FLEXIBLE, DIAGNOSTIC 05/29/2016 [facility], [facility] 05/08/2020 normal / [facility] EGD, FLEXIBLE,W/ENDOSCOPIC US 11/08/2016 inflammatory changes, stomach lesion, repeat EUS 1.5 yrs/[facility] EGD, FLEXIBLE,W/ENDOSCOPIC US 05/01/2018 stromal cell (smooth muscle) neoplasm, CBD dilation, repeat 2 yrs (needs OV prior)/[facility] EGD, FLEXIBLE,W/ENDOSCOPIC US 09/01/2020 leiomyoma / [facility] EXPLORATION OF ABDOMEN N/A 11/23/2022 EXPLORATORY LAPAROTOMY performed by Mendoza Rodriguez MD at [facility] EXPLORATION OF ABDOMEN N/A 11/24/2022 EXPLORATORY LAPAROTOMY performed by Mendoza Rodriguez MD at OR [facility] [place] INCISIONAL HERNIA REPAIR, LAP, REDUCIBLE 09/29/2012 Repair of incarcerated supraumbilical (incisional) hernia with Atrium mesh 09/29/12 IR ASPIRATION ABSCESS/COLLECTION 07/25/2022 LAPAROSCOPIC PARTIAL COLECTOMY W/COLOPROCTOSTOMY N/A 11/01/2022 LAPAROSCOPIC PARTIAL COLECTOMY WITH COLOPROCTOSTOMY performed by Dionte Snyder MD at [facility] LIGATE/CUT OVIDUCT(S) REMOVAL OF TONSILS, AGE 12+ age 11 REMOVE GALLBLADDER 1960 SIGMOIDOSCOPY, DIAGNOSTIC 04/29/2014 stool in rectum/[facility] SMALL BOWEL ENDOSCOPY, REMOVE FOREIGN BODY mesh [...] Son Son Alive Niko Alive Niko Alive 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 Socioeconomic History Marital status: Spouse name: Not on file Number of children: 6 Years of education: Not on file Highest education level: Not on file Occupational History Occupation: Disability 1998 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, 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, 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 Tobacco Use Smoking status: Never Smokeless tobacco: Never Vaping Use Vaping Use: Never used Substance and Sexual Activity Alcohol use: No Drug use: No Sexual activity: Not Currently Other Topics Concern Service Not Asked Blood Transfusions No Caffeine Concern Not Asked Occupational Exposure Not Asked Hobby Hazards Not Asked Sleep Concern Not Asked Stress Concern Not Asked Weight Concern Not Asked Special Diet Not Asked Back Care Not Asked Exercise Not Asked Bike Helmet Not Asked Seat Belt Not Asked Self-Exams Not Asked 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 Narrative Not on file Social Determinants of Health Financial Resource Strain: Not on file Food Insecurity: No Food Insecurity Worried About Running Out of Food in the Last Year: Never true Ran Out of Food in the Last Year: Never true Transportation Needs: Not on file Physical Activity: Not on file Stress: Not on file Social Connections: Not on file Intimate Partner Violence: Not on file Housing Stability: Not on file Review of patient's allergies indicates: Allergen Reactions Diovan [Valsartan] Enalapril Escitalopram Oxalate Nausea/vomiting Nauseated Iodinated Contrast Media Nausea/vomiting IV Contrast Iodine Hives IV Contrast [place] Oil-Black Currant-Vit E Verapamil Wellbutrin [Bupropion Hcl] Makes pt sick in the stomach I have reviewed medications and allergies. Please refer to MAR in the facility's medical record forthe most up-to-date medication list as this cannot be edited in [employer]. Review of Systems: Constitutional ROS: No change in weight, less Weakness, less fatigue and No fevers, sweats, or chills Nose ROS: No nasal stuffiness and No significant epistaxis Mouth/Throat ROS: No thrush or No sore throat Neck ROS: No lumps or masses, No swollen glands, No recent swelling in thyroid area and No significant pain in neck Pulmonary ROS: No cough, sputum, or hemoptysis, No wheezing, No shortness of breath and No recent change in breathing Cardiovascular ROS: No chest pain, No shortness of breath, No edema, No palpitations and No syncope Gastrointestinal ROS: No abdominal pain, No change in bowel habits, No significant change in appetite, No nausea, vomiting, diarrhea, or constipation and No dysphagia Skin/Integumentary ROS: see HPI Neurologic ROS: No headaches and No seizures Psychiatric ROS: No depression, No anxiety and No psychosis Sleep: No sleep disorders OBJECTIVE: PHYSICALEXAM: I reviewed the most recent facilities vitals. General: alert, no distress, well nourished and well developed Eye Exam: Conjunctiva are pink and non-injected, sclera clear Nose: no mucosal erythema, no mucosal edema, no purulent discharge Oropharynx: no exudate, no erythema, lips, buccal mucosa, and tongue normal and mucous membranes are moist Neck: supple, no adenopathy, non-tender, neck veins flat, trachea midline Heart: regular rate & rhythm, no murmurs and no gallops Lungs: normal respiratory rate and rhythm, no chest wall tenderness, lungs clear to auscultation Abdomen: abdomen soft, non-tender, normal bowel sounds and no masses or organomegaly. Incision clean, dressing clean Extremities: no edema, no clubbing, no cyanosis Neuro Exam: alert with fluent speech, no focal motor/sensory deficits Skin: skin color, texture, turgor are normal, no rashes or significant lesions ASSESSMENT: Wound dehiscence (Primary) Incision looks stable and noninfected Continue with current dressing changes Acute blood loss anemia S/p blood transfusion Repeat CBC in AM Stools for occult blood pending History of 2019 novel coronavirus disease (COVID-19) Stable No respiratory symptoms at present Will follow Type 2 diabetes mellitus with stage 3a chronic kidney disease, without long-term current use of insulin (HCC) Stable glucoses and renal function Continue with glimipiride 2mg daily Will follow glucoses Paroxysmal atrial fibrillation (HCC) Stable rate Continue with ASA 81mg daily PLAN: reviewed CBC, BmP, Lytes, BUN, creatinine and Continue present medication(s):as ordered. Assisted Home Treatment Given: Other as above Electronically signed by: Mabel Paul PA-C Over 35 minutes were spent in this visit more than half the time was spent counselling or coordinating care. documented in this encounter Plan of Treatment Upcoming Encounters Date Type Specialty Care Team Description 12/13/2022 Office Visit General Surgery Teresita Padron PA-C [address] [place] [address] 12/23/2022 Office Visit Orthopedics Eliezer Gifford, DO [address] [place] [address] 01/03/2023 Office Visit Cardiology Hammad Lopez, DO [address] [place] [address] 01/07/2023 Office Visit Internal Medicine Marcela Pinto MD [address] [facility], [place] [address] Health Maintenance Due Date Last Done Comments [...] Additional history exists CKD PHOS USE SMARTSET 07074 08/05/202307/14, 02/19/2022, 03/09/2021, Additional history exists DIABETES-FOOT EXAM 10/10/2023 10/10/2022, 0 11/19/2021, 12/21/2020, Additional history exists Depression Screening, Annual for Pts 12 and Over 10/10/2023 10/10/2022 O2 ASSESSMENT COMPLETED IN PAST YEAR FOR COPD 11/24/2023 11/24/2022 CKD HGB USE SMARTSET 18068 12/02/202312/02, 11/29/2022, 11/28/2022, Additional history exists DXA [...] Primary Disruption of external operation (surgical) wound Acute blood loss anemia Acute posthemorrhagic anemia History of 2019 novel coronavirus disease (COVID-19) Type 2 diabetes mellitus with stage 3a chronic kidney disease, without long-term current use of insulin (HCC) Paroxysmal atrial fibrillation (HCC) Atrial fibrillation documented in this encounter Additional Health Concerns Infection Onset Date Last Indicated Resolved Time ESBL Comment:[facility] 2/7 11/19/2022 11/25/2022 documented as of this [...] Advance Directives occurred with: Patient Care Teams Popcorn Candy Maker Relationship Specialty Start Date End Date Marcela Pinto MD [address] [facility] [place] [address] PCP - General Internal Medicine 08/04/14 documented as of this encounter
--- OUTSIDE RECORDS SUMMARY | 2023-06-18 02:24 | External Medical Summary ---
Author Name Unknown Address Unknown Organization [id number][facility] [address] [place] [id number] Laboratory Report Ordering Provider Test Date Status FANG CASSIDY 12/02/2022 05:41:00 Final Observation Date Value Abnormality Reference (Units ) Status WBC, Total 12/02/2022 05:41:00 7.90 4.00-10.8 0 (K/uL) Final RBC 12/02/2022 05:41:00 2.58 3.85-5.15 (M/uL) Final Hemoglobin 12/02/2022 05:41:00 7.1 Below low normal 12 .0-15.3 (g/dL) Final HCT 12/02/2022 05:41:00 23.7 Below low normal 36. 0-45.2 (%) Final MCV 12/02/2022 05:41:00 91.9 81.5-97.5 (fL) Final MCH 12/02/2022 05:41:00 27.5 27.0-34.0 (pg) Final MCHC 12/02/2022 05:41:00 30.0 32.0-36.0 (g/dL) Final RDW 12/02/2022 05:41:00 15.0 11.5-15.5 (%) Final Platelets 12/02/2022 05:41:00 320 140-400 (K /uL) Final MPV 12/02/2022 05:41:00 9.8 6.6-11.1 ( fL) Final [facility] Location [facility] [address] [place] [address]
--- OUTSIDE RECORDS SUMMARY | 2023-06-18 02:25 | External Medical Summary | Summary of Care ---
Author Name Unknown Organization [place] [address] Care Team Providers Care Software Security Architect Name Role Phone Marcela Pinto MD Primary Care Provider + Reason for Visit * Reason Onset Date Comments Appointment 11/28/2022 Encounter Details Date Type Department Care Team Description [facility]/28[facility] [address] [place] [address] Services, [facility] [address] [place] [address] Appointment Allergies Active Allergy Reactions Severity Noted Date Comments Valsartan 07/10/2010 Enalapril 05/21/2006 Escitalopram Oxalate Nausea/vomiting 10/11/2009 Nauseated Iodinated Contrast Media Nausea/vomiting 2009 IV Contrast Iodine Hives 12/18/2009 IV Contrast Sugar Tree Oil-Black Currant-Vit E 07/10/2010 Verapamil 03/21/2004 Bupropion Hcl 10/30/2009 Makes pt sick in the stomach documented as of this encounter (statuses as of 11/28/2022) Medications Medication Sig Dispensed Refills Start Date End Date Status oxyCODONE HCl 5 MG Oral Tablet (Oxy [...] 24 hours. 1 Tablet 0 3 Active Enoxaparin Sodium 40 MG/0.4ML Injection Solution Prefilled Syringe (Lovenox) Inject 40 mg under the skin in the morning for 7 days. Last dose on 12/04/22.. 2.8 mL 0 3 12/04/19 23 Active guaiFENesin-DM 100-10 MG/5ML Oral Syrup (Robitussin DM) Take 5 mL by mouth every 6 hours. For 3 days then as needed for cough. 120 mL 0 3 Active VITAMIN D 1000 UNITS PO TABS Take 2 Tablets by mouth in the morning. 0 2 Suspended LUMIGAN 0.01 % OP SOLN INSTILL 1 DROP BY TOPICAL ROUTE EVERY BEDTIME 4 5 Suspended AZOPT 1 % OP SUSP INSTILL 1 DROP BY OPHTHALMIC ROUTE 2 TIMES EVERY DAY INTO BOTH EYES 4 5 Suspended oxygen GAS Use 2 L/min(Oxygen) as directed daily. and 4 L/min at night. 0 Suspended Multiple Vitamins-Minerals (ONE DAILY MULTIVITAMIN WOMEN) TABS one pill each day 0 7 Suspended docusate sodium (COLACE) 100 MG Capsule Take 1 Cap by mouth daily. 90 Cap 0 9 Suspended Additional Information albuterol sulfate (PROVENTIL) (2.5 MG/3ML) 0.083% nebulizer solutionIndications :Asthma with severity to be determined,COPD, moderate (HCC) USE ONE NEBULIZER TREATMENT TWICE A DAY DIRECTED FOR WORSENING ASTHMA. J45.909, J44.9 225 mL 1 9 Suspended Additional Information Albuterol Sulfate (VENTOLIN HFA) 108 (90 Base) MCG/ACT AERS Inhale 2 Puffs by mouth 2 times a day. 0 0 Suspended Aspirin 81 MG Oral Tablet Delayed Release Take 1 Tablet by mouth in the morning. 0 1 Suspended Spiriva Respimat 1.25 MCG/ACT Inhalation Aerosol Solution (Tiotropium [place] Monohydrate) Inhale 2 Puffs by mouth in the morning. 0 Suspended Dicyclomine HCl 20 MG Oral Tablet (Bentyl)Indications :Chronic constipation TAKE 1 TABLET BY MOUTH EVERY DAY 90 Tablet 2 2 Suspended Additional Information Ferrous Sulfate 325 (65 Fe) MG Oral Tablet (Feosol) Take 1 Tablet by mouth in the morning. 0 2 Suspended Zafirlukast 20 MG Oral Tablet (Accolate)Indicatio ns:Asthma with severity to be determined TAKE 1 TABLET BY MOUTH EVERY DAY 90 Tablet 3 2 Suspended Additional Information Sertraline HCl 25 MG Oral Tablet (Zoloft)Indications :Major depressive disorder with single episode, in partial remission (HCC),HECTOR (generalized anxiety disorder) TAKE 1 TABLET BY MOUTH EVERY DAY IN THE MORNING 90 Tablet 1 2 Suspended Additional Information Omeprazole 20 MG Oral Capsule Delayed Release (PriLOSEC)Indicatio ns:Ischemic colitis ([facility]) TAKE 1 CAPSULE BY MOUTH TWICE A DAY 180 Capsule 3 2 Suspended Additional Information Ondansetron 8 MG Oral Tablet Disintegrating (Zofran) DISSOLVE 1 TABLET ON TONGUE EVERY 8 HOURS NEEDED FOR NAUSEA 60 Tablet 5 2 Suspended Additional Information Polyethylene Glycol 3350 17 GM Oral Packet (Miralax) Take 1 Packet by mouth 2 times a day as needed for Constipation. 0 Suspended Glimepiride 2 MG Oral Tablet (Amaryl) TAKE 1 TABLET BY MOUTH EVERY DAY WITH BREAKFAST 90 Tablet 1 2 Suspended Additional Information Magnesium Chloride 64 MG Oral Tablet Delayed Release (Mag-64) Take 1 Tablet by mouth in the morning. 0 2 Suspended Klor-Con M20 20 MEQ Oral Tablet Extended Release (Potassium Chloride Annalisa ER)Indications:HTN, goal below 140/90 TAKE 1 TABLET BY MOUTH EVERY DAY 90 Tablet 3 2 Suspended Additional Information predniSONE 50 MG Oral Tablet (Deltasone)Indicati ons:Colonic diverticular abscess One tablet 13 hours, 7 hours and 1 hour prior to scheduled dye 3 Tablet 0 2 Suspended Additional Information Ipratropium-Albuter ol 20-100 MCG/ACT Inhalation Aerosol Solution (Combivent Respimat)Indication s:Asthma with severity to be determined,COPD, moderate (HCC) TAKE 1 PUFF BY MOUTH 4 TIMES A DAY 12 g 1 2 Suspended Additional Information Furosemide 40 MG Oral Tablet (Lasix) Take 1 Tablet (40 mg) by mouth in the morning and 1 Tablet (40 mg) before bedtime. 180 Tablet 3 2 Suspended Additional Information Atorvastatin Calcium 40 MG Oral Tablet (Lipitor)Indication s:Hyperlipidemia with target LDL less than 100 TAKE BY MOUTH 1 TABLET IN THE MORNING. 90 Tablet 4 2 Suspended Additional Information Spironolactone 25 MG Oral Tablet (Aldactone) Take 0.5 Tablets (12.5 mg) by mouth once a day on Friday, Friday, and Friday only. 45 Tablet 3 2 Suspended Additional Information methIMAzole 5 MG Oral Tablet (Tapazole) Take 1 Tablet (5 mg) by mouth in the morning. 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 355 mL 0 3 Suspended Additional Information Sucralfate 1 GM Oral Tablet (Carafate) Take 1 Tablet by mouth 4 times a day before meals and at bedtime. 120 Tablet 0 3 12/12/19 23 Suspended Additional Information documented as of this encounter (statuses as of 11/28/2022) Active Problems Problem Noted Date Post-op pain [...] as of this encounter (statuses as of 11/28/2022) Resolved Problems Problem Noted Date Resolved Date [...] Hypoxemia 10/08/2011 10/30/2015 Genetic Sleep Disorder Research Other*[id number] 07/25/2011 05/15/2016 COPD, moderate 07/19/2011 07/28/2019 Overview: [...] as of this encounter (statuses as of 11/28/2022) Immunizations Name Administration Dates Next Due COVID-19 mRNA, LNP-s, No Pre serve, 2-Dose Series ([employer]) 08/21/2021,12/22/2020,2020 COVID-19, LNP-s, No Preserve , Tyler-sucrose, Ages 12+ (Pfizer) 04/16/2022 Hepatitis B, 20+ yrs 10/01/2017,04/21/2017,03/20 Pneumococcal Conjugate Vacc, 13 Valent (Prevnar) 03/28/2015 Pneumococcal Conjugate Vacci ne, 20-valent ([id number]) 04/01/2022 Pneumococcal Polysaccharide PPV23 (Pneumovax) 05/21/2006 Seasonal [...] encounter Miscellaneous Notes * Telephone Encounter - Jagruti Meredith LPN - 11/28/2022 10:20 AM EST Returned call to patient's daughter and she wanted to know if there was another day for her to comeand get her deann out. I left her know that 12/04/22 is too early to have her deann removed and I'll call her back when I find another day. * Telephone Encounter - JORDAN Gibson - 11/28/2022 9:15 AM EST Pt daughter Kaci is the pt transportation and does not think she will be able to bring her on fri for staple removal as she has to work. She said Friday or Friday would be better. Please contact Kaci documented in this encounter Plan of Treatment Upcoming Encounters Date Type Specialty Care Team Description 12/04/2022 Halfway Visit Family Medicine Michelle Gallegos MD [address] [place] [address] [place] [address] 12/04/2022 Office Visit General Surgery Teresita Padron PA-C [address] [facility] [place] [address] 12/23/2022 Office Visit Orthopedics Eliezer Gifford, DO [address] [facility] [place] [address] 01/03/2023 Office Visit Cardiology Hammad Lopez, [address] [place] [address] 01/07/2023 Office Visit Internal Medicine Marcela Pinto MD [address] [place] [address] Health Maintenance Due Date Last Done Comments [...] Additional history exists GFR - Renal Function 05/28/2023 11/28/2022, 11/27/2022, 11/26/2022, Additional history exists CKD PHOS USE SMARTSET 65612 08/05/202307/14, 02/19/2022, 03/09/2021, Additional history exists DIABETES-FOOT EXAM 10/10/2023 10/10/2022, 0 11/19/2021, 12/21/2020, Additional history exists Depression Screening, Annual for Pts 12 and Over 10/10/2023 10/10/2022 O2 ASSESSMENT COMPLETED IN PAST YEAR FOR COPD 11/24/2023 11/24/2022 CKD HGB USE SMARTSET 87625 11/28/202311/28, 11/27/2022, 11/26/2022, Additional history exists DXA Scan 08/08/2025 08/08/2020, [...] Onset Date Last Indicated Resolved Time ESBL Comment:[facility] 11/1911/19/2022 11/25/2022 documented as of this encounter Advance Directives Latest Code Status on File Code Status Date Activated Date Inactivated Comments Full Code 11/23/2022 7:22 PM Question Answer Comments Discussion of Advance [...] Advance Directives occurred with: Patient Care Teams Software Security Architect Relationship Specialty Start Date End Date Marcela Pinto MD [address] [facility] [place] [address] PCP - General Internal Medicine 08/04/14 documented as of this encounter
--- OUTSIDE RECORDS SUMMARY | 2023-06-18 02:25 | External Medical Summary ---
Author Name Unknown Address Unknown Organization : Laboratory Report Ordering Provider Test Date Status PEDRO LUIS CELAYA 11/28/2022 12:06:53 Final Observation Date Value Abnormality Reference (Units ) Status Glucose Point of Care 11/28/2022 12:06:53 164 Above high normal 70-120 (mg/dL) Final Performing Location
--- OUTSIDE RECORDS SUMMARY | 2023-06-18 02:25 | External Medical Summary ---
Author Name Unknown Address Unknown Organization K01:[facility] [place] - [address] [place] [address] Laboratory Report Ordering Provider Test Date Status VALENTIN BE 11/28/2022 07:51:00 Final Observation Date Value Abnormality Reference (Units ) Status WBC, Total 11/28/2022 07:51:00 9.97 4.00-10.80 (K/uL) Final RBC 11/28/2022 07:51:00 2.91 3.85-5.15 (M/uL) Final Hemoglobin 11/28/2022 07:51:00 8.0 Below low normal 12.0-15.3 (g/dL) Final HCT 11/28/2022 07:51:00 27.6 Below low normal 36.0-45.2 (%) Final MCV 11/28/2022 07:51:00 94.8 81.5-97.5 (fL) Final MCH 11/28/2022 07:51:00 27.5 27.0-34.0 (pg) Final MCHC 11/28/2022 07:51:00 29.0 32.0-36.0 (g/dL) Final RDW 11/28/2022 07:51:00 14.8 11.5-15.5 (%) Final Platelets 11/28/2022 07:51:00 276 140-400 (K/uL) Final MPV 11/28/2022 07:51:00 10.0 6.6-11.1 (fL) Final Nucleated erythrocytes/100 leukocytes [Ratio] in Blood by Automated count 11/28/2022 07:51:00 0 <=0 (/100 WBCs) Final Performing Location [facility] - [address] [place] [address]
--- OUTSIDE RECORDS SUMMARY | 2023-06-18 02:25 | External Medical Summary ---
Author Name Unknown Address Unknown Organization K01:[facility] [place] - [address] [place] [address] Laboratory Report Ordering Provider Test Date Status VALENTIN BE 11/29/2022 08:04:00 Final Observation Date Value Abnormality Reference (Units ) Status WBC, Total 11/29/2022 08:04:00 8.89 4.00-10.80 (K/uL) Final RBC 11/29/2022 08:04:00 2.70 3.85-5.15 (M/uL) Final Hemoglobin 11/29/2022 08:04:00 7.6 Below low normal 12.0-15.3 (g/dL) Final HCT 11/29/2022 08:04:00 25.4 Below low normal 36.0-45.2 (%) Final MCV 11/29/2022 08:04:00 94.1 81.5-97.5 (fL) Final MCH 11/29/2022 08:04:00 28.1 27.0-34.0 (pg) Final MCHC 11/29/2022 08:04:00 29.9 32.0-36.0 (g/dL) Final RDW 11/29/2022 08:04:00 14.7 11.5-15.5 (%) Final Platelets 11/29/2022 08:04:00 279 140-400 (K/uL) Final MPV 11/29/2022 08:04:00 10.0 6.6-11.1 (fL) Final Nucleated erythrocytes/100 leukocytes [Ratio] in Blood by Automated count 11/29/2022 08:04:00 0 <=0 (/100 WBCs) Final Performing Location [facility] - [address] [place] [address]
--- OUTSIDE RECORDS SUMMARY | 2023-06-18 02:25 | External Medical Summary ---
Author Name Unknown Address Unknown Organization : Laboratory Report Ordering Provider Test Date Status PEDRO LUIS CELAYA 11/27/2022 22:21:26 Final Observation Date Value Abnormality Reference (Units ) Status Glucose Point of Care 11/27/2022 22:21:26 126 Above high normal 70-120 (mg/dL) Final Performing Location
--- OUTSIDE RECORDS SUMMARY | 2023-06-18 02:25 | External Medical Summary | Summary of Care ---
Author Name Unknown Organization [place] [address] Care Team Providers Care Decorating Kiln Operator Name Role Phone Marcela Pinto MD Primary Care Provider + Reason for Visit * Reason Onset Date Comments Appointment 11/28/2022 Encounter Details Date Type Department Care Team Description [facility]/28[facility] [address] [place] [address] [facility], [facility] [address] [place] [address] Appointment Allergies Active Allergy Reactions Severity Noted [...] Respimat 1.25 MCG/ACT Inhalation Aerosol Solution (Tiotropium [place] Monohydrate) Inhale 2 Puffs by mouth in [...] Oral Capsule Delayed Release (PriLOSEC)Indicatio ns:Ischemic colitis ([facility]) TAKE 1 CAPSULE BY MOUTH TWICE A [...] Oral Tablet Extended Release 24 Hour (toPROL XL)Indications:Radio Reporter akin heart failure with reduced ejection fraction [...] Hypoxemia 10/08/2011 10/30/2015 Genetic Sleep Disorder Research Other*[id number] 07/25/2011 05/15/2016 COPD, moderate 07/19/2011 07/28/2019 Overview: [...] mRNA, LNP-s, No Pre serve, 2-Dose Series ([employer]) 08/21/2021,12/22/2020,2020 COVID-19, LNP-s, No Preserve , Tyler-sucrose, Ages 12+ (Pfizer) 04/16/2022 Hepatitis B, 20+ yrs 10/01/2017,04/21/2017,03/20 Pneumococcal Conjugate Vacc, 13 Valent (Prevnar) 03/28/2015 Pneumococcal Conjugate Vacci ne, 20-valent ([id number]) 04/01/2022 Pneumococcal Polysaccharide PPV23 (Pneumovax) 05/21/2006 Seasonal [...] Encounter - Jagruti Meredith LPN - 11/28/2022 10:24 AM EST Attempted to call daughter back and not able to leave a message due to inbox being full. * Telephone Encounter - Jagruti Meredith LPN [...] Date Type Specialty Care Team Description 12/04/2022 Skilled Nursing Visit Family Medicine Michelle Gallegos MD [address] [place] [address] [place] [address] 12/04/2022 Office Visit General Surgery SaTeresita gómez PA-C [address] [place] [address] 12/23/2022 Office Visit Orthopedics Eliezer Gifford, DO [address] [facility] [place] [address] 01/03/2023 Office Visit Cardiology Hammad Lopez, DO [address] [place] [address] 01/07/2023 Office Visit Internal Medicine Marcela Pinto MD [address] [facility], [place] [address] Health Maintenance Due Date Last Done Comments [...] Additional history exists CKD PHOS USE SMARTSET 95473 08/05/202307/14, 02/19/2022, 03/09/2021, Additional history exists DIABETES-FOOT EXAM 10/10/2023 10/10/2022, 0 11/19/2021, 12/21/2020, Additional history exists Depression Screening, Annual for Pts 12 and Over 10/10/2023 10/10/2022 O2 ASSESSMENT COMPLETED IN PAST YEAR FOR COPD 11/24/2023 11/24/2022 CKD HGB USE SMARTSET 91596 11/28/202311/28, 11/27/2022, 11/26/2022, Additional history exists DXA [...] Date Last Indicated Resolved Time ESBL Comment:[facility] 2/11/19/2022 11/25/2022 documented as of this encounter [...] Advance Directives occurred with: Patient Care Teams Decorating Kiln Operator Relationship Specialty Start Date End Date Marcela Pinto MD [address] [facility] [place] [address] PCP - General Internal Medicine 08/04/14 documented as of this encounter
--- OUTSIDE RECORDS SUMMARY | 2023-06-18 02:25 | External Medical Summary | Summary of Care ---
Author Name Unknown Organization [place] [address] Care Team Providers Care Snuff Drier Name Role Phone Marcela Pinto MD Primary Care Provider + Reason for Visit * Reason Onset Date Comments Appointment 11/28/2022 Encounter Details Date Type Department Care Team Description [facility] [address] [place] [address] Services, [facility] [address] [place] [address] Appointment Allergies Active Allergy Reactions Severity Noted Date Comments Valsartan 07/10/2010 Enalapril 05/21/2006 Escitalopram Oxalate Nausea/vomiting 10/11/2009 Nauseated Iodinated Contrast Media Nausea/vomiting 2009 IV Contrast Iodine Hives 12/18/2009 IV Contrast [place] Oil-Black Currant-Vit E 07/10/2010 Verapamil 03/21/2004 Bupropion [...] Respimat 1.25 MCG/ACT Inhalation Aerosol Solution (Tiotropium [place] Monohydrate) Inhale 2 Puffs by mouth in [...] Oral Capsule Delayed Release (PriLOSEC)Indicatio ns:Ischemic colitis ([facility]) TAKE 1 CAPSULE BY MOUTH [...] Oral Tablet Extended Release 24 Hour (toPROL XL)Indications: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 [...] Hypoxemia 10/08/2011 10/30/2015 Genetic Sleep Disorder Research Other*[id number] 07/25/2011 05/15/2016 COPD, moderate 07/19/2011 07/28/2019 Overview: [...] mRNA, LNP-s, No Pre serve, 2-Dose Series ([employer]) 08/21/2021,12/22/2020,2020 COVID-19, LNP-s, No Preserve , Tyler-sucrose, Ages 12+ (Pfizer) 04/16/2022 Hepatitis B, 20+ yrs 10/01/2017,04/21/2017,03/20 Pneumococcal Conjugate Vacc, 13 Valent (Prevnar) 03/28/2015 Pneumococcal Conjugate Vacci ne, 20-valent ([id number]) 04/01/2022 Pneumococcal Polysaccharide PPV23 (Pneumovax) 05/21/2006 Seasonal [...] Encounter - Jagruti Meredith LPN - 11/28/2022 11:58 AM EST Returned call to patient's daughter Kaci and left her know that 12/04/22 is too early for her motherto have her deann removed. Offered her an appointment on 12/13/22 at 2:30 pm and she accepted the appointment. * Telephone Encounter - Jagruti Meredith LPN [...] Date Type Specialty Care Team Description 12/04/2022 Residential Visit Family Medicine Michelle Gallegos MD [address] [place] [address] [place] [address] 12/04/2022 Office Visit General Surgery Teresita Padron, PA-C [address] [facility] [address] 12/23/2022 Office Visit Orthopedics Eilezer Gifford, DO [address] [place] [address] 01/03/2023 Office Visit Cardiology Hammad Lopez, DO [address] [place] [address] 01/07/2023 Office Visit Internal Medicine Marcela Pinto MD [address] [facility] [address] Health Maintenance Due Date Last Done Comments [...] Additional history exists CKD PHOS USE SMARTSET 30548 08/05/202307/14, 02/19/2022, 03/09/2021, Additional history exists DIABETES-FOOT EXAM 10/10/2023 10/10/2022, 0 11/19/2021, 12/21/2020, Additional history exists Depression Screening, Annual for Pts 12 and Over 10/10/2023 10/10/2022 O2 ASSESSMENT COMPLETED IN PAST YEAR FOR COPD 11/24/2023 11/24/2022 CKD HGB USE SMARTSET 12673 11/28/202311/28, 11/27/2022, 11/26/2022, Additional history exists DXA [...] Onset Date Last Indicated Resolved Time ESBL Comment:[facility] 11/1911/19/2022 11/25/2022 documented as of this [...] Advance Directives occurred with: Patient Care Teams Snuff Drier Relationship Specialty Start Date End Date Marcela Pinto MD [address] [place] [address] PCP - General Internal Medicine 08/04/14 documented as of this encounter
--- OUTSIDE RECORDS SUMMARY | 2023-06-18 02:25 | External Medical Summary ---
Author Name Unknown Address Unknown Organization : Laboratory Report Ordering Provider Test Date Status PEDRO LUIS CELAYA 11/29/2022 08:00:11 Final Observation Date Value Abnormality Reference (Units ) Status Glucose Point of Care 11/29/2022 08:00:11 108 70-120 (mg/dL) Final Performing Location
--- OUTSIDE RECORDS SUMMARY | 2023-06-18 02:25 | External Medical Summary ---
Author Name Unknown Address Unknown Organization : Laboratory Report Ordering Provider Test Date Status PEDRO LUIS CELAYA 11/28/2022 07:36:06 Final Observation Date Value Abnormality Reference (Units ) Status Glucose Point of Care 11/28/2022 07:36:06 105 70-120 (mg/dL) Final Performing Location
--- OUTSIDE RECORDS SUMMARY | 2023-06-18 02:25 | External Medical Summary ---
Author Name Unknown Address Unknown Organization : Laboratory Report Ordering Provider Test Date Status PEDRO LUIS CELAYA 11/28/2022 16:04:28 Final Observation Date Value Abnormality Reference (Units ) Status Glucose Point of Care 11/28/2022 16:04:28 161 Above high normal 70-120 (mg/dL) Final Performing Location
--- OUTSIDE RECORDS SUMMARY | 2023-06-18 02:25 | External Medical Summary ---
Author Name Unknown Address Unknown Organization K01:[facility] [place] [address] [place] [address] Laboratory Report Ordering Provider Test Date Status MARGOT BEON 11/29/2022 08:04:00 Final Observation Date Value Abnormality Reference (Units ) Status BUN 11/29/2022 08:04:00 9 6-20 (mg/dL) Final Creatinine 11/29/2022 08:04:00 0.7 0.5-1.0 (mg/dL) Final Glomerular filtration rate/1.73 sq M.predicted [Volume Rate/Area] in Serum, Plasma or Blood by Creatinine-based formula (CKD-EPI) 11/29/2022 08:04:00 86 >=60 (mL/min) Final Performing Location [facility] [place] [address] [place] [address]
--- OUTSIDE RECORDS SUMMARY | 2023-06-18 02:25 | External Medical Summary ---
Author Name Unknown Address Unknown Organization K01:[facility] [place] [address] [place] [address] Laboratory Report Ordering Provider Test Date Status MARGOT BEON 11/28/2022 07:51:00 Final Observation Date Value Abnormality Reference (Units ) Status BUN 11/28/2022 07:51:00 10 6-20 (mg/dL) Final Creatinine 11/28/2022 07:51:00 0.7 0.5-1.0 (mg/dL) Final Glomerular filtration rate/1.73 sq M.predicted [Volume Rate/Area] in Serum, Plasma or Blood by Creatinine-based formula (CKD-EPI) 11/28/2022 07:51:00 83 >=60 (mL/min) Final Performing Location [facility] [address] [facility] [address]
--- OUTSIDE RECORDS SUMMARY | 2023-06-18 02:25 | External Medical Summary ---
Author Name Unknown Address Unknown Organization : Laboratory Report Ordering Provider Test Date Status PEDRO LUIS CELAYA 11/28/2022 21:05:10 Final Observation Date Value Abnormality Reference (Units ) Status Glucose Point of Care 11/28/2022 21:05:10 133 Above high normal 70-120 (mg/dL) Final Performing Location
--- OUTSIDE RECORDS SUMMARY | 2023-06-18 02:25 | External Medical Summary | Summary of Care ---
Author Name Unknown Organization [place] [address] Care Team Providers Care Sliver Handler Name Role Phone Marcela Pinto MD Primary Care Provider + Reason for Visit * Reason Onset Date Comments Appointment 11/28/2022 Encounter Details Date Type Department Care Team Description [facility] [address] [place] [address] Services, [facility] [address] [place] [address] Appointment Allergies Active Allergy Reactions Severity Noted Date Comments Valsartan 07/10/2010 Enalapril 05/21/2006 Escitalopram Oxalate Nausea/vomiting 10/11/2009 Nauseated Iodinated Contrast Media Nausea/vomiting 2009 IV Contrast Iodine Hives 12/18/2009 IV Contrast [place] Oil-Black Currant-Vit E 07/10/2010 Verapamil 03/21/2004 Bupropion [...] Respimat 1.25 MCG/ACT Inhalation Aerosol Solution (Tiotropium [place] Monohydrate) Inhale 2 Puffs by mouth in [...] Oral Capsule Delayed Release (PriLOSEC)Indicatio ns:Ischemic colitis ([facility]) TAKE 1 CAPSULE BY MOUTH TWICE A [...] Oral Tablet Extended Release 24 Hour (toPROL XL)Indications:Breaker Up akin heart failure with reduced ejection fraction [...] Hypoxemia 10/08/2011 10/30/2015 Genetic Sleep Disorder Research Other*[id number] 07/25/2011 05/15/2016 COPD, moderate 07/19/2011 07/28/2019 Overview: [...] mRNA, LNP-s, No Pre serve, 2-Dose Series (Troodon) 08/21/2021,12/22/2020,2020 COVID-19, LNP-s, No Preserve , Tyler-sucrose, Ages 12+ (Pfizer) 04/16/2022 Hepatitis B, 20+ yrs 10/01/2017,04/21/2017,03/20 Pneumococcal Conjugate Vacc, 13 Valent (Prevnar) 03/28/2015 Pneumococcal Conjugate Vacci ne, 20-valent ([id number]) 04/01/2022 Pneumococcal Polysaccharide PPV23 (Pneumovax) 05/21/2006 Seasonal [...] Date Type Specialty Care Team Description 12/04/2022 [facility] Visit Family Medicine Michelle Gallegos MD [address] [place] [address] [place] [phone] 12/04/2022 Office Visit General Surgery Teresita Padron PA-C [address] [facility] [address] 12/23/2022 Office Visit Orthopedics Eliezer Gifford, DO [address] [place] [address] 01/03/2023 Office Visit Cardiology Hammad Lopez, DO [address] [place] [address] 01/07/2023 Office Visit Internal Medicine Marcela Pinto MD [address] [place] [address] Health Maintenance Due Date Last Done Comments [...] Additional history exists CKD PHOS USE SMARTSET 95307 08/05/202307/14, 02/19/2022, 03/09/2021, Additional history exists DIABETES-FOOT EXAM 10/10/2023 10/10/2022, 0 11/19/2021, 12/21/2020, Additional history exists Depression Screening, Annual for Pts 12 and Over 10/10/2023 10/10/2022 O2 ASSESSMENT COMPLETED IN PAST YEAR FOR COPD 11/24/2023 11/24/2022 CKD HGB USE SMARTSET 81508 11/28/202311/28, 11/27/2022, 11/26/2022, Additional history exists DXA [...] Onset Date Last Indicated Resolved Time ESBL Comment:[facility] 11/1911/19/2022 11/25/2022 documented as of [...] Advance Directives occurred with: Patient Care Teams Sliver Handler Relationship Specialty Start Date End Date Marcela Pinto MD [address] [place] [address] PCP - General Internal Medicine 08/04/14 documented as of this encounter
--- OUTSIDE RECORDS SUMMARY | 2023-06-18 02:25 | External Medical Summary | Summary of Care ---
Author Name Unknown Organization [place] [address] Care Team Providers Care Case Management Coordinator Name Role Phone Marcela Pinto MD Primary Care Provider + Reason for Visit * Reason Onset Date Comments Appointment 11/28/2022 Encounter Details Date Type Department Care Team Description [facility] [address] [place] [address] Services, [facility] [address] [place] [address] Appointment Allergies Active Allergy Reactions Severity Noted Date Comments Valsartan 07/10/2010 Enalapril 05/21/2006 Escitalopram Oxalate Nausea/vomiting 10/11/2009 Nauseated Iodinated Contrast Media Nausea/vomiting 2009 IV Contrast Iodine Hives 12/18/2009 IV Contrast [place] Oil-Black Currant-Vit E 07/10/2010 Verapamil 03/21/2004 Bupropion [...] Respimat 1.25 MCG/ACT Inhalation Aerosol Solution (Tiotropium [place] Monohydrate) Inhale 2 Puffs by mouth in [...] Oral Capsule Delayed Release (PriLOSEC)Indicatio ns:Ischemic colitis ([facility]) TAKE 1 CAPSULE BY MOUTH TWICE A [...] Tablet Extended Release 24 Hour (toPROL XL)Indications:Rn Diabetes akin heart failure with reduced ejection fraction [...] Hypoxemia 10/08/2011 10/30/2015 Genetic Sleep Disorder Research Other*[id number] 07/25/2011 05/15/2016 COPD, moderate 07/19/2011 07/28/2019 Overview: [...] mRNA, LNP-s, No Pre serve, 2-Dose Series (TwentyFeet) 08/21/2021,12/22/2020,2020 COVID-19, LNP-s, No Preserve , Tyler-sucrose, Ages 12+ (Pfizer) 04/16/2022 Hepatitis B, 20+ yrs 10/01/2017,04/21/2017,03/20 Pneumococcal Conjugate Vacc, 13 Valent (Prevnar) 03/28/2015 Pneumococcal Conjugate Vacci ne, 20-valent ([id number]) 04/01/2022 Pneumococcal Polysaccharide PPV23 (Pneumovax) 05/21/2006 Seasonal [...] Date Type Specialty Care Team Description 12/04/2022 [facility] Visit Family Medicine Michelle Gallegos MD [address] [place] [address] [place] [address] 12/04/2022 Office Visit General Surgery Teresita Padron PA-C [address] [facility] [address] 12/23/2022 Office Visit Orthopedics Eliezer Gifford, DO [address] [place] [address] 01/03/2023 Office Visit Cardiology Hammad Lopez, DO [address] [place] [address] 01/07/2023 Office Visit Internal Medicine Marcela Pinto MD [address] [place] [address] Health Maintenance Due Date Last Done Comments [...] Additional history exists CKD PHOS USE SMARTSET 31087 08/05/202307/14, 02/19/2022, 03/09/2021, Additional history exists DIABETES-FOOT EXAM 10/10/2023 10/10/2022, 0 11/19/2021, 12/21/2020, Additional history exists Depression Screening, Annual for Pts 12 and Over 10/10/2023 10/10/2022 O2 ASSESSMENT COMPLETED IN PAST YEAR FOR COPD 11/24/2023 11/24/2022 CKD HGB USE SMARTSET 69379 11/28/202311/28, 11/27/2022, 11/26/2022, Additional history exists DXA [...] Onset Date Last Indicated Resolved Time ESBL Comment:[facility] 11/1911/19/2022 11/25/2022 documented as of [...] Advance Directives occurred with: Patient Care Teams Case Management Coordinator Relationship Specialty Start Date End Date Marcela Pinto MD [address] [place] [address] PCP - General Internal Medicine 08/04/14 documented as of this encounter
--- OUTSIDE RECORDS SUMMARY | 2023-06-18 02:26 | External Medical Summary ---
Author Name Unknown Address Unknown Organization [id number]:LABORATORY [facility] [place] - [facility] [address] [place] [address] Laboratory Report Ordering Provider Test Date Status BELLE VILLALOBOS 11/24/2022 16:18:00 Final Observation Date Value Abnormality Reference (Units ) Status WBC, Total 11/24/2022 16:18:00 12.69 Above high normal 4.00-10.80 (K/uL) Final RBC 11/24/2022 16:18:00 3.25 3.85-5.15 (M/uL) Final Hemoglobin 11/24/2022 16:18:00 9.0 Below low normal 12.0-15.3 (g/dL) Final HCT 11/24/2022 16:18:00 30.0 Below low normal 36.0-45.2 (%) Final MCV 11/24/2022 16:18:00 92.3 81.5-97.5 (fL) Final MCH 11/24/2022 16:18:00 27.7 27.0-34.0 (pg) Final MCHC 11/24/2022 16:18:00 30.0 32.0-36.0 (g/dL) Final RDW 11/24/2022 16:18:00 14.8 11.5-15.5 (%) Final Platelets 11/24/2022 16:18:00 329 140-400 (K/uL) Final MPV 11/24/2022 16:18:00 10.0 6.6-11.1 (fL) Final Nucleated erythrocytes/100 leukocytes [Ratio] in Blood by Automated count 11/24/2022 16:18:00 0 <=0 (/100 WBCs) Final Performing Location LABORATORY [facility] [place] - [address] [place] [address]
--- OUTSIDE RECORDS SUMMARY | 2023-06-18 02:26 | External Medical Summary ---
Author Name Unknown Address Unknown Organization [id number]:LABORATORY [facility] - [address] [place] [address] Laboratory Report Ordering Provider Test Date Status VALENTIN BE 11/27/2022 08:02:00 Final Observation Date Value Abnormality Reference (Units ) Status WBC, Total 11/27/2022 08:02:00 9.98 4.00-10.80 (K/uL) Final RBC 11/27/2022 08:02:00 2.81 3.85-5.15 (M/uL) Final Hemoglobin 11/27/2022 08:02:00 7.9 Below low normal 12.0-15.3 (g/dL) Final HCT 11/27/2022 08:02:00 26.7 Below low normal 36.0-45.2 (%) Final MCV 11/27/2022 08:02:00 95.0 81.5-97.5 (fL) Final MCH 11/27/2022 08:02:00 28.1 27.0-34.0 (pg) Final MCHC 11/27/2022 08:02:00 29.6 32.0-36.0 (g/dL) Final RDW 11/27/2022 08:02:00 14.8 11.5-15.5 (%) Final Platelets 11/27/2022 08:02:00 254 140-400 (K/uL) Final MPV 11/27/2022 08:02:00 10.2 6.6-11.1 (fL) Final Nucleated erythrocytes/100 leukocytes [Ratio] in Blood by Automated count 11/27/2022 08:02:00 0 <=0 (/100 WBCs) Final Performing Location LABORATORY [facility] - [address] [place] [address]
--- OUTSIDE RECORDS SUMMARY | 2023-06-18 02:26 | External Medical Summary ---
Author Name Unknown Address Unknown Organization : Laboratory Report Ordering Provider Test Date Status PEDRO LUIS CELAYA 11/26/2022 08:50:10 Final Observation Date Value Abnormality Reference (Units ) Status Glucose Point of Care 11/26/2022 08:50:10 119 70-120 (mg/dL) Final Performing Location
--- OUTSIDE RECORDS SUMMARY | 2023-06-18 02:26 | External Medical Summary ---
Author Name Unknown Address Unknown Organization : Laboratory Report Ordering Provider Test Date Status PEDRO LUIS CELAYA 11/24/2022 16:36:11 Final Observation Date Value Abnormality Reference (Units ) Status Glucose Point of Care 11/24/2022 16:36:11 172 Above high normal 70-120 (mg/dL) Final Performing Location
--- OUTSIDE RECORDS SUMMARY | 2023-06-18 02:26 | External Medical Summary ---
Author Name Unknown Address Unknown Organization : Laboratory Report Ordering Provider Test Date Status PEDRO LUIS CELAYA 11/27/2022 11:51:33 Final Observation Date Value Abnormality Reference (Units ) Status Glucose Point of Care 11/27/2022 11:51:33 140 Above high normal 70-120 (mg/dL) Final Performing Location
--- OUTSIDE RECORDS SUMMARY | 2023-06-18 02:26 | External Medical Summary ---
Author Name Unknown Address Unknown Organization [id number]:[facility] [address] [place] [address] Laboratory Report Ordering Provider Test Date Status MARGOT BEON 11/26/2022 07:11:00 Final Observation Date Value Abnormality Reference (Units ) Status BUN 11/26/2022 07:11:00 20 6-20 (mg/dL) Final Creatinine 11/26/2022 07:11:00 0.8 0.5-1.0 (mg/dL) Final Glomerular filtration rate/1.73 sq M.predicted [Volume Rate/Area] in Serum, Plasma or Blood by Creatinine-based formula (CKD-EPI) 11/26/2022 07:11:00 70 >=60 (mL/min) Final Performing Location LABORATORY C - [address] [place] [address]
--- OUTSIDE RECORDS SUMMARY | 2023-06-18 02:26 | External Medical Summary ---
Author Name Unknown Address Unknown Organization K01:LABORATORY [facility] [place] - [address] [facility] [address] Laboratory Report Ordering Provider Test Date Status BELLE VILLALOBOS 11/24/2022 16:18:00 Final Observation Date Value Abnormality Reference (Units ) Status Lactic Acid 11/24/2022 16:18:00 1.8 0.4-2.0 (mmol/L) Final Performing Location LABORATORY C - [address] [facility] [address]
--- OUTSIDE RECORDS SUMMARY | 2023-06-18 02:26 | External Medical Summary ---
Author Name Unknown Address Unknown Organization : Laboratory Report Ordering Provider Test Date Status PEDRO LUIS CELAYA 11/25/2022 12:36:34 Final Observation Date Value Abnormality Reference (Units ) Status Glucose Point of Care 11/25/2022 12:36:34 156 Above high normal 70-120 (mg/dL) Final Performing Location
--- OUTSIDE RECORDS SUMMARY | 2023-06-18 02:26 | External Medical Summary ---
Author Name Unknown Address Unknown Organization : Laboratory Report Ordering Provider Test Date Status PEDRO LUIS CELAYA 11/24/2022 11:28:25 Final Observation Date Value Abnormality Reference (Units ) Status Glucose Point of Care 11/24/2022 11:28:25 159 Above high normal 70-120 (mg/dL) Final Performing Location
--- OUTSIDE RECORDS SUMMARY | 2023-06-18 02:26 | External Medical Summary ---
Author Name Unknown Address Unknown Organization : Laboratory Report Ordering Provider Test Date Status PEDRO LUIS CELAYA 11/25/2022 18:19:16 Final Observation Date Value Abnormality Reference (Units ) Status Glucose Point of Care 11/25/2022 18:19:16 162 Above high normal 70-120 (mg/dL) Final Performing Location
--- OUTSIDE RECORDS SUMMARY | 2023-06-18 02:26 | External Medical Summary ---
Author Name Unknown Address Unknown Organization [id number]:[facility]ATORY [facility] [place] - [address] [place] [address] Laboratory Report Ordering Provider Test Date Status VALENTIN BE 11/25/2022 06:35:00 Final Observation Date Value Abnormality Reference (Units ) Status BUN 11/25/2022 06:35:00 28 Above high normal 6-20 (mg/dL) Final Creatinine 11/25/2022 06:35:00 1.2 Above high normal 0.5-1.0 (mg/dL) Final Glomerular filtration rate/1.73 sq M.predicted [Volume Rate/Area] in Serum, Plasma or Blood by Creatinine-based formula (CKD-EPI) 11/25/2022 06:35:00 43 Below low normal >=60 (mL/min) Final Performing Location LAB[facility]ORY [facility] [place] - [address] [place] [address]
--- OUTSIDE RECORDS SUMMARY | 2023-06-18 02:26 | External Medical Summary ---
Author Name Unknown Address Unknown Organization : Laboratory Report Ordering Provider Test Date Status PEDRO LUIS CELAYA 11/27/2022 07:43:14 Final Observation Date Value Abnormality Reference (Units ) Status Glucose Point of Care 11/27/2022 07:43:14 106 70-120 (mg/dL) Final Performing Location
--- OUTSIDE RECORDS SUMMARY | 2023-06-18 02:26 | External Medical Summary ---
Author Name Unknown Address Unknown Organization : Laboratory Report Ordering Provider Test Date Status PEDRO LUIS CELAYA 11/26/2022 16:44:11 Final Observation Date Value Abnormality Reference (Units ) Status Glucose Point of Care 11/26/2022 16:44:11 126 Above high normal 70-120 (mg/dL) Final Performing Location
--- OUTSIDE RECORDS SUMMARY | 2023-06-18 02:26 | External Medical Summary ---
Author Name Unknown Address Unknown Organization : Laboratory Report Ordering Provider Test Date Status PEDRO LUIS CELAYA 11/26/2022 11:22:54 Final Observation Date Value Abnormality Reference (Units ) Status Glucose Point of Care 11/26/2022 11:22:54 150 Above high normal 70-120 (mg/dL) Final Performing Location
--- OUTSIDE RECORDS SUMMARY | 2023-06-18 02:26 | External Medical Summary ---
Author Name Unknown Address Unknown Organization K01:LABORATORY [facility] [place] - [facility] [address] [place] [address] Laboratory Report Ordering Provider Test Date Status VALENTIN BE 11/25/2022 06:35:00 Final Observation Date Value Abnormality Reference (Units ) Status WBC, Total 11/25/2022 06:35:00 12.56 Above high normal 4.00-10.80 (K/uL) Final RBC 11/25/2022 06:35:00 3.29 3.85-5.15 (M/uL) Final Hemoglobin 11/25/2022 06:35:00 9.3 Below low normal 12.0-15.3 (g/dL) Final HCT 11/25/2022 06:35:00 30.2 Below low normal 36.0-45.2 (%) Final MCV 11/25/2022 06:35:00 91.8 81.5-97.5 (fL) Final MCH 11/25/2022 06:35:00 28.3 27.0-34.0 (pg) Final MCHC 11/25/2022 06:35:00 30.8 32.0-36.0 (g/dL) Final RDW 11/25/2022 06:35:00 15.0 11.5-15.5 (%) Final Platelets 11/25/2022 06:35:00 308 140-400 (K/uL) Final MPV 11/25/2022 06:35:00 10.3 6.6-11.1 (fL) Final Nucleated erythrocytes/100 leukocytes [Ratio] in Blood by Automated count 11/25/2022 06:35:00 0 <=0 (/100 WBCs) Final Performing Location LABORATORY [facility] [place] - [address] [place] [address]
--- OUTSIDE RECORDS SUMMARY | 2023-06-18 02:26 | External Medical Summary ---
Author Name Unknown Address Unknown Organization K01:LABORATORY [facility] [place] - [address] [place] [address] Laboratory Report Ordering Provider Test Date Status VALENTIN BE 11/26/2022 07:11:00 Final Observation Date Value Abnormality Reference (Units ) Status WBC, Total 11/26/2022 07:11:00 10.80 4.00-10.80 (K/uL) Final RBC 11/26/2022 07:11:00 2.95 3.85-5.15 (M/uL) Final Hemoglobin 11/26/2022 07:11:00 8.3 Below low normal 12.0-15.3 (g/dL) Final HCT 11/26/2022 07:11:00 27.5 Below low normal 36.0-45.2 (%) Final MCV 11/26/2022 07:11:00 93.2 81.5-97.5 (fL) Final MCH 11/26/2022 07:11:00 28.1 27.0-34.0 (pg) Final MCHC 11/26/2022 07:11:00 30.2 32.0-36.0 (g/dL) Final RDW 11/26/2022 07:11:00 14.9 11.5-15.5 (%) Final Platelets 11/26/2022 07:11:00 260 140-400 (K/uL) Final MPV 11/26/2022 07:11:00 10.5 6.6-11.1 (fL) Final Nucleated erythrocytes/100 leukocytes [Ratio] in Blood by Automated count 11/26/2022 07:11:00 0 <=0 (/100 WBCs) Final Performing Location LABORATORY [facility] [place] - [address] [place] [address]
--- OUTSIDE RECORDS SUMMARY | 2023-06-18 02:26 | External Medical Summary ---
Author Name Unknown Address Unknown Organization : Laboratory Report Ordering Provider Test Date Status PEDRO LUIS CELAYA 11/25/2022 23:15:06 Final Observation Date Value Abnormality Reference (Units ) Status Glucose Point of Care 11/25/2022 23:15:06 156 Above high normal 70-120 (mg/dL) Final Performing Location
--- OUTSIDE RECORDS SUMMARY | 2023-06-18 02:26 | External Medical Summary ---
Author Name Unknown Address Unknown Organization : Laboratory Report Ordering Provider Test Date Status PEDRO LUIS CELAYA 11/24/2022 23:17:56 Final Observation Date Value Abnormality Reference (Units ) Status Glucose Point of Care 11/24/2022 23:17:56 137 Above high normal 70-120 (mg/dL) Final Performing Location
--- OUTSIDE RECORDS SUMMARY | 2023-06-18 02:26 | External Medical Summary ---
Author Name Unknown Address Unknown Organization K01:LABORATORY [facility] [place] - [address] [place] [address] Laboratory Report Ordering Provider Test Date Status BELLE VILLALOBOS 11/24/2022 16:18:00 Final Observation Date Value Abnormality Reference (Units ) Status BUN 11/24/2022 16:18:00 28 Above high normal 6-20 (mg/dL) Final Creatinine 11/24/2022 16:18:00 1.2 Above high normal 0.5-1.0 (mg/dL) Final Glomerular filtration rate/1.73 sq M.predicted [Volume Rate/Area] in Serum, Plasma or Blood by Creatinine-based formula (CKD-EPI) 11/24/2022 16:18:00 47 Below low normal >=60 (mL/min) Final Performing Location LABORATORY [facility] [place] - [address] [place] [address]
--- OUTSIDE RECORDS SUMMARY | 2023-06-18 02:26 | External Medical Summary ---
Author Name Unknown Address Unknown Organization : Laboratory Report Ordering Provider Test Date Status PEDRO LUIS CELAYA 11/25/2022 06:34:43 Final Observation Date Value Abnormality Reference (Units ) Status Glucose Point of Care 11/25/2022 06:34:43 121 Above high normal 70-120 (mg/dL) Final Performing Location
--- OUTSIDE RECORDS SUMMARY | 2023-06-18 02:26 | External Medical Summary ---
Author Name Unknown Address Unknown Organization : Laboratory Report Ordering Provider Test Date Status PEDRO LUIS CELAYA 11/26/2022 22:10:43 Final Observation Date Value Abnormality Reference (Units ) Status Glucose Point of Care 11/26/2022 22:10:43 168 Above high normal 70-120 (mg/dL) Final Performing Location
--- OUTSIDE RECORDS SUMMARY | 2023-06-18 02:26 | External Medical Summary ---
Author Name Unknown Address Unknown Organization K01:LAB[facility]ORY [facility] [place] [address] [place] [address] Laboratory Report Ordering Provider Test Date Status [place],VALENTIN 11/27/2022 08:02:00 Final Observation Date Value Abnormality Reference (Units ) Status BUN 11/27/2022 08:02:00 12 6-20 (mg/dL) Final Creatinine 11/27/2022 08:02:00 0.8 0.5-1.0 (mg/dL) Final Glomerular filtration rate/1.73 sq M.predicted [Volume Rate/Area] in Serum, Plasma or Blood by Creatinine-based formula (CKD-EPI) 11/27/2022 08:02:00 75 >=60 (mL/min) Final Performing Location LABORATORY C - [address] [place] [address]
--- OUTSIDE RECORDS SUMMARY | 2023-06-18 02:26 | External Medical Summary ---
Author Name Unknown Address Unknown Organization : Laboratory Report Ordering Provider Test Date Status PEDRO LUIS CELAYA 11/25/2022 17:50:57 Final Observation Date Value Abnormality Reference (Units ) Status Glucose Point of Care 11/25/2022 17:50:57 144 Above high normal 70-120 (mg/dL) Final Performing Location
--- OUTSIDE RECORDS SUMMARY | 2023-06-18 02:26 | External Medical Summary ---
Author Name Unknown Address Unknown Organization : Laboratory Report Ordering Provider Test Date Status PEDRO LUIS CELAYA 11/27/2022 16:59:51 Final Observation Date Value Abnormality Reference (Units ) Status Glucose Point of Care 11/27/2022 16:59:51 168 Above high normal 70-120 (mg/dL) Final Performing Location
--- OUTSIDE RECORDS SUMMARY | 2023-06-18 02:27 | External Medical Summary ---
Author Name Unknown Address Unknown Organization K0G[facility] [address] [place] [address] Laboratory Report Ordering Provider Test Date Status SURI VO 11/16/2022 06:30:00 Final Observation Date Value Abnormality Reference (Units ) Status WBC, Total 11/16/2022 06:30:00 14.08 Above high normal 4 .00-10.80 (K/uL) Final RBC 11/16/2022 06:30:00 3.53 3.85-5.15 (M/uL) Final Hemoglobin 11/16/2022 06:30:00 9.7 Below low normal 12 .0-15.3 (g/dL) Final HCT 11/16/2022 06:30:00 31.5 Below low normal 36. 0-45.2 (%) Final MCV 11/16/2022 06:30:00 89.2 81.5-97.5 (fL) Final MCH 11/16/2022 06:30:00 27.5 27.0-34.0 (pg) Final MCHC 11/16/2022 06:30:00 30.8 32.0-36.0 (g/dL) Final RDW 11/16/2022 06:30:00 14.5 11.5-15.5 (%) Final Platelets 11/16/2022 06:30:00 429 Above high normal 14 0-400 (K/uL) Final MPV 11/16/2022 06:30:00 10.1 6.6-11.1 ( fL) Final Performing Location LABORATORY [facility] [address] - [address] [place] [address]
--- OUTSIDE RECORDS SUMMARY | 2023-06-18 02:27 | External Medical Summary | Summary of Care ---
Author Name Unknown Organization [place] [address] Care Team Providers Care Mechanical Design Drafter Name Role Phone Marcela Pinto MD Primary Care Provider + Reason for Visit * Reason Onset Date Comments Medical Records Request 11/14/2022 Specialt y Medical Equipment Encounter Details Date Type Department Care Team Description 11/14/2022 Telephone General Internal Medicine [facility] [address] [facility] [place] [address] Marcela Pinto MD [address] [place] [address] Medical Records Request (Specialty Medical... Allergies Active Allergy Reactions Severity Noted Date Comments Valsartan 07/10/2010 Enalapril 05/21/2006 Escitalopram Oxalate Nausea/vomiting 10/11/2009 Nauseated Iodinated Contrast Media Nausea/vomiting 2009 IV Contrast Iodine Hives 12/18/2009 IV Contrast Metoprolol Tartrate 11/18/2006 Made pulse low [place] Oil-Black Currant-Vit E 07/10/2010 Verapamil 03/21/2004 Bupropion Hcl 10/30/2009 Makes pt sick in the stomach documented as of this encounter (statuses as of 11/14/2022) Medications Medication Sig Dispensed Refills Start Date [...] albuterol sulfate (PROVENTIL) (2.5 MG/3ML) 0.083% nebulizer solutionIndications: Asthma with severity to be determined,COPD, moderate (HCC) USE ONE NEBULIZER TREATMENT TWICE A DAY DIRECTED FOR WORSENING ASTHMA. J45.909, J44.9 225 mL 1 06/29/2019 Active Additional Information Patient not taking.Reported on 10/31/2022 Albuterol Sulfate (VENTOLIN HFA) 108 (90 Base) MCG/ACT AERS Inhale 2 Puffs by mouth 2 times a day. 0 12/27/2019 Active Aspirin 81 MG Oral Tablet Delayed Release Take 1 Tablet by mouth in the morning. 0 02/05/2021 Active Spiriva Respimat 1.25 MCG/ACT Inhalation Aerosol Solution (Tiotropium [place] Monohydrate) Inhale 2 Puffs by mouth in the morning. 0 Active Dicyclomine HCl 20 MG Oral Tablet (Bentyl)Indications: Chronic constipation TAKE 1 TABLET BY MOUTH EVERY DAY 90 Tablet 2 03/25/2022 Active Ferrous Sulfate 325 (65 Fe) MG Oral Tablet (Feosol) Take 1 Tablet by mouth in the morning. 0 04/22/2022 Active Zafirlukast 20 MG Oral Tablet (Accolate)Indication s:Asthma with severity to be determined TAKE 1 TABLET BY MOUTH EVERY DAY 90 Tablet 3 05/02/2022 Active Additional Information Patient not taking.Reported on 10/31/2022 Sertraline HCl 25 MG Oral Tablet (Zoloft)Indications: Major depressive disorder with single episode, in partial remission (HCC),HECTOR (generalized anxiety disorder) TAKE 1 TABLET BY MOUTH EVERY DAY IN THE MORNING 90 Tablet 1 06/12/2022 Active Omeprazole 20 MG Oral Capsule Delayed Release (PriLOSEC)Indication s:Ischemic colitis (HCC) TAKE 1 CAPSULE BY MOUTH [...] 08/19/2022 Active predniSONE 50 MG Oral Tablet (Deltasone)Indicatio ns:Colonic diverticular abscess One tablet 13 hours, 7 hours and 1 hour prior to scheduled dye 3 Tablet 0 08/21/2022 Active Additional Information Patient not taking.Reported on 10/15/2022 Ipratropium-Albutero l 20-100 MCG/ACT Inhalation Aerosol Solution (Combivent Respimat)Indications :Asthma with severity to be determined,COPD, moderate (HCC) TAKE 1 PUFF BY MOUTH 4 TIMES A DAY 12 g 1 09/10/2022 Active Furosemide 40 MG Oral Tablet (Lasix) Take 1 Tablet (40 mg) by mouth in the morning and 1 Tablet (40 mg) before bedtime. 180 Tablet 3 09/11/2022 Active Atorvastatin Calcium 40 MG Oral Tablet (Lipitor)Indications :Hyperlipidemia with target LDL less than 100 TAKE [...] Oral Tablet Extended Release 24 Hour (toPROL XL)Indications:Chron ic 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),NICM (nonischemic cardiomyopathy) (HCC),Presence of Watchman left atrial appendage closure device TAKE 1/2 TABLET BY MOUTH EVERY DAY 45 Tablet 3 09/19/2022 Active Promethazine HCl 25 MG Oral Tablet (Phenergan)Indicatio ns:Generalized osteoarthritis TAKE 1 TABLET BY MOUTH EVERY 6 HOURS NEEDED FOR NAUSEA 60 Tablet 2 10/18/2022 Active oxyCODONE HCl 5 MG Oral Tablet (Oxy IR) Take 1 Tablet by mouth every 4 hours as needed for Pain, Moderate. 20 Tablet 0 11/11/2022 Active Alum & Mag Hydroxide-Simeth 400-400-40 MG/5ML Oral Suspension (Mi-Acid II) Take 30 mL by mouth every 4 hours as needed for Indigestion. 355 mL 0 11/11/2022 Active Sulfamethoxazole-Tri methoprim 800-160 MG Oral Tablet (Bactrim DS) Take 1 Tablet by mouth in the morning and 1 Tablet before bedtime. Do all this for 3 days. 6 Tablet 0 11/11/2022 3 Active Sucralfate 1 GM Oral Tablet (Carafate) Take 1 Tablet by mouth 4 times a day before meals and at bedtime. 120 Tablet 0 11/11/2022 3 Active documented as of this encounter (statuses as of 11/14/2022) Active Problems Problem Noted Date Protein-calorie malnutrition 08/15/2022 Diverticulitis of intestine with [...] as of this encounter (statuses as of 11/14/2022) Resolved Problems Problem Noted Date Resolved Date [...] Hypoxemia 10/08/2011 10/30/2015 Genetic Sleep Disorder Research Other*[id number] 07/25/2011 05/15/2016 COPD, moderate 07/19/2011 07/28/2019 Overview: [...] as of this encounter (statuses as of 11/14/2022) Immunizations Name Administration Dates Next Due COVID-19 mRNA, LNP-s, No Pre serve, 2-Dose Series ([employer]) 08/21/2021,12/22/2020,2020 COVID-19, LNP-s, No Preserve , Tyler-sucrose, Ages 12+ (Pfizer) 04/16/2022 Hepatitis B, 20+ yrs 10/01/2017,04/21/2017,03/20 Pneumococcal Conjugate Vacc, 13 Valent (Prevnar) 03/28/2015 Pneumococcal Conjugate Vacci ne, 20-valent ([id number]) 04/01/2022 Pneumococcal Polysaccharide PPV23 (Pneumovax) 05/21/2006 Seasonal [...] you have serious difficulty h earing? No 07/25/2022 Are you blind or do you have serious difficulty seeing, even when wearing glasses? No 07/25/2022 Do you have serious difficul ty walking or climbing stairs? (5 years old or older) No 07/25/2022 Do you have difficulty dress ing or bathing? (5 years old or older) No 07/25/2022 Because of a physical, menta l, or emotional condition, do you have difficulty doing errands alone such as visiting a doctor s office or shopping? (15 years old or older) Yes 07/25/20 Cognitive Status Response Date of Assessm ent Because of a physical, menta l, or emotional condition, do you have serious difficulty concentrating, remembering, or making decisions? (5 years old or older No 07/25/2022 documented as of this encounter Miscellaneous Notes * Telephone Encounter - JORDAN Pritchard - 11/14/2022 8:45 AM EST Medical Record Request Med Recs from Specialty Medical Equipment Med Recs forwarded to [facility] documented in this encounter Plan of Treatment Upcoming Encounters Date Type Specialty Care Team Description 11/26/2022 Office Visit General Surgery Teresita Padron, PA-C [address] [place] [address] 12/23/2022 Office Visit Orthopedics Eliezer Gifford, DO [address] [facility] [address] 01/03/2023 Office Visit Cardiology Hammad Lopez, DO [address] [facility] [address] 01/07/2023 Office Visit Internal Medicine Marcela Pinto MD [address] [facility] [place] [address] Health Maintenance Due Date Last Done Comments Alpha-1 Antitrypsin 1956 Zoster Vaccines (3 of 3) 05/27/2022 04/01/2022, 06/14 COVID-19 Vaccine (5 - Booster for Pfizer series) 06/11/2022 04/16/2022, 08/21/2021, 12/22/2020, Additional history exists HgA1C 12/08/2022 06/07/2022, 02/10, 08/23/2021, Additional history exists Alb / Creat Ratio 02/19/2023 02/19/2022, , 07/27/2018, Additional history exists DIABETES-EYE EXAM 03/08/2023 03/08/2022, , 08/07/2020, Additional history exists GFR - Renal Function 05/12/2023 11/12/2022, 11/11/2022, 11/10/2022, Additional history exists CKD PHOS USE SMARTSET 63653 08/05/202307/14, 02/19/2022, 03/09/2021, Additional history exists DIABETES-FOOT EXAM 10/10/2023 10/10/2022, 0 11/19/2021, 12/21/2020, Additional history exists Depression Screening, Annual for Pts 12 and Over 10/10/2023 10/10/2022 O2 ASSESSMENT COMPLETED IN PAST YEAR FOR COPD 11/01/2023 11/01/2022 CKD HGB USE SMARTSET 32739 11/12/202311/12, 11/11/2022, 11/11/2022, Additional history exists DXA Scan 08/08/2025 08/08/2020, [...] Last Indicated Resolved Time ESBL 10/18/2022 10/18/2022 documented as of this encounter Advance Directives Latest Code Status on File Code Status Date Activated Date Inactivated Comments Full Code 11/01/2022 1:29 PM 11/11/2022 5:34 PM This order reflects the patients wishes and were consensually agreed upon. Question Answer Comments Discussion of Advance Directives occurred with: Patient Code Status History Code Status Date Activated Date Inactivated Comments Full Code 10/31/2022 5:11 PM 11/01/2022 1:29 [...] Advance Directives occurred with: Patient Full Code 06/06/2022 12:31 PM 06/10/2022 4:44 PM Question Answer Comments Discussion of Advance Directives occurred with: Not Discussed Care Teams Mechanical Design Drafter Relationship Specialty Start Date End Date Marcela Pinto MD [address] [place], [place] [address] [address] PCP - General Internal Medicine 08/04/14 documented as of this encounter
--- OUTSIDE RECORDS SUMMARY | 2023-06-18 02:27 | External Medical Summary ---
Author Name Unknown Address Unknown Organization [id number]:[facility] [place] [address] [place] [address] Laboratory Report Ordering Provider Test Date Status VALENTIN BE 11/23/2022 20:02:00 Final Observation Date Value Abnormality Reference (Units ) Status WBC, Total 11/23/2022 20:02:00 12.53 Above high normal 4.00-10.80 (K/uL) Final RBC 11/23/2022 20:02:00 3.59 3.85-5.15 (M/uL) Final Hemoglobin 11/23/2022 20:02:00 10.1 Below low normal 12.0-15.3 (g/dL) Final HCT 11/23/2022 20:02:00 32.8 Below low normal 36.0-45.2 (%) Final MCV 11/23/2022 20:02:00 91.4 81.5-97.5 (fL) Final MCH 11/23/2022 20:02:00 28.1 27.0-34.0 (pg) Final MCHC 11/23/2022 20:02:00 30.8 32.0-36.0 (g/dL) Final RDW 11/23/2022 20:02:00 14.4 11.5-15.5 (%) Final Platelets 11/23/2022 20:02:00 410 Above high normal 140-400 (K/uL) Final MPV 11/23/2022 20:02:00 10.0 6.6-11.1 (fL) Final Nucleated erythrocytes/100 leukocytes [Ratio] in Blood by Automated count 11/23/2022 20:02:00 0 <=0 (/100 WBCs) Final Performing Location [facility] [place] [address] [place] [address]
--- OUTSIDE RECORDS SUMMARY | 2023-06-18 02:27 | External Medical Summary ---
Author Name Unknown Address Unknown Organization [id number]:[facility] [place] [address] [place] [address] Laboratory Report Ordering Provider Test Date Status VALENTIN BE 11/24/2022 06:57:00 Final Observation Date Value Abnormality Reference (Units ) Status BUN 11/24/2022 06:57:00 24 Above high normal 6-20 (mg/dL) Final Creatinine 11/24/2022 06:57:00 0.8 0.5-1.0 (mg/dL) Final Glomerular filtration rate/1.73 sq M.predicted [Volume Rate/Area] in Serum, Plasma or Blood by Creatinine-based formula (CKD-EPI) 11/24/2022 06:57:00 69 >=60 (mL/min) Final Performing Location [facility] [place] [address] [place] [address]
--- OUTSIDE RECORDS SUMMARY | 2023-06-18 02:27 | External Medical Summary ---
Author Name Unknown Address Unknown Organization : Laboratory Report Ordering Provider Test Date Status PEDRO LUIS CELAYA 11/24/2022 02:34:20 Final Observation Date Value Abnormality Reference (Units ) Status Glucose Point of Care 11/24/2022 02:34:20 124 Above high normal 70-120 (mg/dL) Final Performing Location
--- OUTSIDE RECORDS SUMMARY | 2023-06-18 02:27 | External Medical Summary ---
Author Name Unknown Address Unknown Organization [id number][place] [facility] [place] [address] [place] [address] Laboratory Report Ordering Provider Test Date Status VALENTIN BE 11/24/2022 06:57:00 Final Observation Date Value Abnormality Reference (Units ) Status HbA1C 11/24/2022 06:57:00 6.2 Above high normal 4. 0-5.6 (%) Final Performing Location LABORATORY C - [address] [place] [address]
--- OUTSIDE RECORDS SUMMARY | 2023-06-18 02:27 | External Medical Summary ---
Author Name Unknown Address Unknown Organization K01:LABORATORY [facility] [place] [address] [place] [address] Laboratory Report Ordering Provider Test Date Status VALENTIN BE 11/24/2022 06:57:00 Final Observation Date Value Abnormality Reference (Units ) Status WBC, Total 11/24/2022 06:57:00 20.54 Above high normal 4.00-10.80 (K/uL) Final RBC 11/24/2022 06:57:00 3.70 3.85-5.15 (M/uL) Final Hemoglobin 11/24/2022 06:57:00 10.0 Below low normal 12.0-15.3 (g/dL) Final HCT 11/24/2022 06:57:00 33.8 Below low normal 36.0-45.2 (%) Final MCV 11/24/2022 06:57:00 91.4 81.5-97.5 (fL) Final MCH 11/24/2022 06:57:00 27.0 27.0-34.0 (pg) Final MCHC 11/24/2022 06:57:00 29.6 32.0-36.0 (g/dL) Final RDW 11/24/2022 06:57:00 14.7 11.5-15.5 (%) Final Platelets 11/24/2022 06:57:00 410 Above high normal 140-400 (K/uL) Final MPV 11/24/2022 06:57:00 10.4 6.6-11.1 (fL) Final Nucleated erythrocytes/100 leukocytes [Ratio] in Blood by Automated count 11/24/2022 06:57:00 0 <=0 (/100 WBCs) Final Performing Location LABORATORY [facility] [place] - [address] [place] [address]
--- OUTSIDE RECORDS SUMMARY | 2023-06-18 02:27 | External Medical Summary ---
Author Name Unknown Address Unknown Organization : Laboratory Report Ordering Provider Test Date Status PEDRO LUIS CELAYA 11/24/2022 05:22:43 Final Observation Date Value Abnormality Reference (Units ) Status Glucose Point of Care 11/24/2022 05:22:43 101 70-120 (mg/dL) Final Performing Location
--- OUTSIDE RECORDS SUMMARY | 2023-06-18 02:27 | External Medical Summary ---
Author Name Unknown Address Unknown Organization K01:[facility] [place] [address] [place] [address] Laboratory Report Ordering Provider Test Date Status VALENTIN BE 11/23/2022 23:34:00 Final Observation Date Value Abnormality Reference (Units ) Status BUN 11/23/2022 23:34:00 25 Above high normal 6-20 (mg/dL) Final Creatinine 11/23/2022 23:34:00 0.8 0.5-1.0 (mg/dL) Final Glomerular filtration rate/1.73 sq M.predicted [Volume Rate/Area] in Serum, Plasma or Blood by Creatinine-based formula (CKD-EPI) 11/23/2022 23:34:00 76 >=60 (mL/min) Final Performing Location [facility] [place] [address] [place] [address]
--- OUTSIDE RECORDS SUMMARY | 2023-06-18 02:27 | External Medical Summary ---
Author Name Unknown Address Unknown Organization : Laboratory Report Ordering Provider Test Date Status PEDRO LUIS CELAYA 11/23/2022 21:05:57 Final Observation Date Value Abnormality Reference (Units ) Status Glucose Point of Care 11/23/2022 21:05:57 146 Above high normal 70-120 (mg/dL) Final Performing Location
--- OUTSIDE RECORDS SUMMARY | 2023-06-18 02:27 | External Medical Summary | Summary of Care ---
Author Name Unknown Organization [place] [address] Care Team Providers Care Processing Archivist Name Role Phone Marcela Pinto MD Primary Care Provider + Encounter Details Date Type Department Care Team Description 11/21/2022 [employer] ArchitectIce Skating Instructor Practice [facility] [address] [place] [address] Joanna Smith, RN Medical home patient encounter* Allergies Active Allergy Reactions Severity Noted Date Comments Valsartan 07/10/2010 Enalapril 05/21/2006 Escitalopram Oxalate Nausea/vomiting 10/11/2009 Nauseated Iodinated Contrast Media Nausea/vomiting 2009 IV Contrast Iodine Hives 12/18/2009 IV Contrast Metoprolol Tartrate 11/18/2006 Made pulse low [place] Oil-Black Currant-Vit E 07/10/2010 Verapamil 03/21/2004 Bupropion Hcl 10/30/2009 Makes pt sick in the stomach documented as of this encounter (statuses as of 11/21/2022) Medications Medication Sig Dispensed Refills Start Date [...] Asthma with severity to be determined,COPD, moderate ([facility]) USE ONE NEBULIZER TREATMENT TWICE A DAY [...] Respimat 1.25 MCG/ACT Inhalation Aerosol Solution (Tiotropium [place] Monohydrate) Inhale 2 Puffs by mouth in [...] as of this encounter (statuses as of 11/21/2022) Active Problems Problem Noted Date Protein-calorie malnutrition [...] as of this encounter (statuses as of 11/21/2022) Resolved Problems Problem Noted Date Resolved Date [...] Hypoxemia 10/08/2011 10/30/2015 Genetic Sleep Disorder Research Other*[id number] 07/25/2011 05/15/2016 COPD, moderate 07/19/2011 07/28/2019 Overview: [...] as of this encounter (statuses as of 11/21/2022) Immunizations Name Administration Dates Next Due COVID-19 mRNA, LNP-s, No Pre serve, 2-Dose Series ([employer]) 08/21/2021,12/22/2020,2020 COVID-19, LNP-s, No Preserve , Tyler-sucrose, Ages 12+ (Pfizer) 04/16/2022 Hepatitis B, 20+ yrs 10/01/2017,04/21/2017,03/20 Pneumococcal Conjugate Vacc, 13 Valent (Prevnar) 03/28/2015 Pneumococcal Conjugate Vacci ne, 20-valent ([id number]) 04/01/2022 Pneumococcal Polysaccharide PPV23 (Pneumovax) 05/21/2006 Seasonal [...] No 07/25/2022 documented as of this encounter Progress Notes * Joanna Smith RN - 11/21/2022 2:18 PM EST Entered in Error documented in this encounter Plan of Treatment Upcoming Encounters Date Type Specialty Care Team Description 11/26/2022 Office Visit General Surgery Teresita Padron PA-C [address] [place] [address] 12/23/2022 Office Visit Orthopedics Eliezer Gifford, DO [address] [place] [address] 01/03/2023 Office Visit Cardiology Hammad Lopez, DO [address] [place] [address] 01/07/2023 Office Visit [facility] [address] Health Maintenance Due Date Last Done Comments [...] Additional history exists GFR - Renal Function 05/16/2023 11/16/2022, 11/12/2022, 11/11/2022, Additional history exists CKD PHOS USE SMARTSET 24528 08/05/202307/14, 02/19/2022, 03/09/2021, Additional history exists DIABETES-FOOT EXAM 10/10/2023 10/10/2022, 0 11/19/2021, 12/21/2020, Additional history exists Depression Screening, Annual for Pts 12 and Over 10/10/2023 10/10/2022 O2 ASSESSMENT COMPLETED IN PAST YEAR FOR COPD 11/01/2023 11/01/2022 CKD HGB USE SMARTSET 22744 11/16/202311/16, 11/12/2022, 11/11/2022, Additional history exists DXA Scan 08/08/2025 [...] Directives occurred with: Not Discussed Care Teams Processing Archivist Relationship Specialty Start Date End Date Marcela Pinto MD [address] [place] [address] PCP - General Internal Medicine 08/04/14 documented as of this encounter
--- OUTSIDE RECORDS SUMMARY | 2023-06-18 02:27 | External Medical Summary ---
Author Name Unknown Address Unknown Organization K01:[facility] [place] [facility] - [address] [place] [address] Laboratory Report Ordering Provider Test Date Status VALENTIN BE 11/23/2022 20:02:00 Final Observation Date Value Abnormality Reference (Units ) Status ABO 11/23/2022 20:02:00 O Final RH 11/23/2022 20:02:00 Positive Final RED BLOOD CELL ANTIBODY SCREEN 11/23/2022 20:02:00 Negative Final SPECIMEN EXPIRATION DATE 11/23/2022 20:02:00 11/26/2022 23:59 Final Performing Location [facility] [place] [facility] - [address] [place] [address]
--- OUTSIDE RECORDS SUMMARY | 2023-06-18 02:27 | External Medical Summary | Summary of Care ---
Author Name Unknown Organization [place] [address] Care Team Providers Care Administrative Appeals Tribunal Member Name Role Phone Marcela Pinto MD Primary Care Provider + Reason for Visit * Reason Onset Date Comments Advice 11/20/2022 Encounter Details Date Type Department Care Team Description 11/20/2022 Telephone General Surgery, [place] [address] [phone] Teresita Padron PA-C [address] [place] [address] Advice Allergies Active Allergy Reactions Severity Noted Date Comments Valsartan 07/10/2010 Enalapril 05/21/2006 Escitalopram Oxalate Nausea/vomiting 10/11/2009 Nauseated Iodinated Contrast Media Nausea/vomiting 2009 IV Contrast Iodine Hives 12/18/2009 IV Contrast Metoprolol Tartrate 11/18/2006 Made pulse low [place] Oil-Black Currant-Vit E 07/10/2010 Verapamil 03/21/2004 Bupropion Hcl 10/30/2009 Makes pt sick in the stomach documented as of this encounter (statuses as of 11/20/2022) Medications Medication Sig Dispensed Refills Start Date [...] Asthma with severity to be determined,COPD, moderate ([facility]) USE ONE NEBULIZER TREATMENT TWICE A [...] Respimat 1.25 MCG/ACT Inhalation Aerosol Solution (Tiotropium [place] Monohydrate) Inhale 2 Puffs by mouth in [...] as of this encounter (statuses as of 11/20/2022) Active Problems Problem Noted Date Protein-calorie malnutrition [...] as of this encounter (statuses as of 11/20/2022) Resolved Problems Problem Noted Date Resolved Date [...] Hypoxemia 10/08/2011 10/30/2015 Genetic Sleep Disorder Research Other*[id number] 07/25/2011 05/15/2016 COPD, moderate 07/19/2011 07/28/2019 Overview: [...] as of this encounter (statuses as of 11/20/2022) Immunizations Name Administration Dates Next Due COVID-19 mRNA, LNP-s, No Pre serve, 2-Dose Series ([employer]) 08/21/2021,12/22/2020,2020 COVID-19, LNP-s, No Preserve , Tyler-sucrose, Ages 12+ (Pfizer) 04/16/2022 Hepatitis B, 20+ yrs 10/01/2017,04/21/2017,03/20 Pneumococcal Conjugate Vacc, 13 Valent (Prevnar) 03/28/2015 Pneumococcal Conjugate Vacci ne, 20-valent ([id number]) 04/01/2022 Pneumococcal Polysaccharide PPV23 (Pneumovax) 05/21/2006 Seasonal [...] Miscellaneous Notes * Telephone Encounter - Teresita Padron PA-C - 11/20/2022 4:25 PM EST Received TT from hospitalist (Dr. Gould) at [facility]. Pt currently admitted due to Covid. Noted small area of skin separation on incision which is 2 cm deep, no sign of infection, minimal serousdrainage noted, no purulence, no erythema. Pt is tolerating diet and having regular bowel function.No abdominal pain. Recommended dry gauze dressing changes daily until seen in clinic or call soonerwith any concerns. documented in this encounter Plan of Treatment Upcoming Encounters Date Type Specialty Care Team Description 11/26/2022 Office Visit General Surgery Teresita Padron PA-C [address] [place] [address] 12/23/2022 Office Visit Orthopedics Eliezer Gifford, DO [address] [facility] [phone] 01/03/2023 Office Visit Cardiology Hammad Lopez, DO [address] [place] [address] 01/07/2023 Office Visit Internal Medicine Marcela Pinto MD [address] [place] [address] Health Maintenance Due Date Last Done Comments [...] Additional history exists CKD PHOS USE SMARTSET 30056 08/05/202307/14, 02/19/2022, 03/09/2021, Additional history exists DIABETES-FOOT EXAM 10/10/2023 10/10/2022, 0 11/19/2021, 12/21/2020, Additional history exists Depression Screening, Annual for Pts 12 and Over 10/10/2023 10/10/2022 O2 ASSESSMENT COMPLETED IN PAST YEAR FOR COPD 11/01/2023 11/01/2022 CKD HGB USE SMARTSET 88888 11/16/202311/16, 11/12/2022, 11/11/2022, Additional history exists DXA [...] Directives occurred with: Not Discussed Care Teams Administrative Appeals Tribunal Member Relationship Specialty Start Date End Date Marcela Pinto MD [address] [place] [address] [place] [address] PCP - General Internal Medicine 08/04/14 documented as of this encounter
--- OUTSIDE RECORDS SUMMARY | 2023-06-18 02:27 | External Medical Summary ---
Author Name Unknown Address Unknown Organization K0G:LAB[facility]ATORY [facility] - [address] [place] [address] Laboratory Report Ordering Provider Test Date Status SURI VO 11/16/2022 06:30:00 Final Observation Date Value Abnormality Reference (Units ) Status BUN 11/16/2022 06:30:00 18 6-20 (mg/dL) Final Creatinine 11/16/2022 06:30:00 1.2 Above high normal 0.5-1.0 (mg/dL) Final Glomerular filtration rate/1.73 sq M.predicted [Volume Rate/Area] in Serum, Plasma or Blood by Creatinine-based formula (CKD-EPI) 11/16/2022 06:30:00 45 Below low normal >=60 (mL/min) Final Performing Location LABORATORY [facility] - [address] [place] [address]
--- OUTSIDE RECORDS SUMMARY | 2023-06-18 02:28 | External Medical Summary ---
Author Name Unknown Address Unknown Organization : Laboratory Report Ordering Provider Test Date Status NADIRA GURROLA 11/11/2022 07:55:20 Final Observation Date Value Abnormality Reference (Units ) Status Glucose Point of Care 11/11/2022 07:55:20 119 70-120 (mg/dL) Final Performing Location
--- OUTSIDE RECORDS SUMMARY | 2023-06-18 02:28 | External Medical Summary ---
Author Name Unknown Address Unknown Organization [id number]:[facility] [place] [id number] Laboratory Report Ordering Provider Test Date Status SURI VO 11/12/2022 05:35:00 Final Observation Date Value Abnormality Reference (Units ) Status BUN 11/12/2022 05:35:00 35 Above high normal 6-20 (mg/dL) Final Creatinine 11/12/2022 05:35:00 1.2 Above high normal 0.5-1.0 (mg/dL) Final Glomerular filtration rate/1.73 sq M.predicted [Volume Rate/Area] in Serum, Plasma or Blood by Creatinine-based formula (CKD-EPI) 11/12/2022 05:35:00 46 Below low normal >=60 (mL/min) Final Performing Location [facility] [place] [id number]
--- OUTSIDE RECORDS SUMMARY | 2023-06-18 02:28 | External Medical Summary ---
Author Name Unknown Address Unknown Organization [id number]:[facility] [place] [address] Laboratory Report Ordering Provider Test Date Status SURI VO 11/12/2022 05:35:00 Final Observation Date Value Abnormality Reference (Units ) Status WBC, Total 11/12/2022 05:35:00 13.40 Above high normal 4 .00-10.80 (K/uL) Final RBC 11/12/2022 05:35:00 3.56 3.85-5.15 (M/uL) Final Hemoglobin 11/12/2022 05:35:00 9.9 Below low normal 12 .0-15.3 (g/dL) Final HCT 11/12/2022 05:35:00 32.1 Below low normal 36. 0-45.2 (%) Final MCV 11/12/2022 05:35:00 90.2 81.5-97.5 (fL) Final MCH 11/12/2022 05:35:00 27.8 27.0-34.0 (pg) Final MCHC 11/12/2022 05:35:00 30.8 32.0-36.0 (g/dL) Final RDW 11/12/2022 05:35:00 14.8 11.5-15.5 (%) Final Platelets 11/12/2022 05:35:00 501 Above high normal 14 0-400 (K/uL) Final MPV 11/12/2022 05:35:00 9.8 6.6-11.1 ( fL) Final Performing Location [facility] [place] [address]
--- OUTSIDE RECORDS SUMMARY | 2023-06-18 02:28 | External Medical Summary | Summary of Care ---
Author Name Unknown Organization [place] [address] Care Team Providers Care Robot Technician Name Role Phone Marcela Pinto MD Primary Care Provider + Reason for Referral * Precert (Within 10 days (routine)) - Authorized Specialty Diagnoses / Procedures Referred By Miguel Angel roe Referred To Contact Radiology Diagnoses Diverticulitis of colon Procedures CT CYSTOGRAM W CONTRAST ONLY Ronan Burgess, Jaylon Mi MD [address] [place] [address] Referral ID Status Reason Start Date Expiration Date V isits Requested Visits Authorized [id number] Authorized 11/08/2022 999 999 Reason for Visit * Auth/Cert Specialty Diagnoses / Procedures Referred By Miguel Angel roe Referred To Contact Diagnoses Colocutaneous fistula colorectal fistula Referral ID Status Reason Start Date Expiration Date Visits Re quested Visits Authorized [id number] Encounter Details Date Type Department Care Team Description 10/31/2022 - 11/11/2022 Hospital Encounter [id number] [address] [place] [address] Dionte Snyder MD [address] [place] [address] Various: KRAVS,CDIQDC Allergies Active Allergy Reactions Severity Noted Date Comments Valsartan 07/10/2010 Enalapril 05/21/2006 Escitalopram Oxalate Nausea/vomiting 10/11/2009 Nauseated Iodinated Contrast Media Nausea/vomiting 2009 IV Contrast Iodine Hives 12/18/2009 IV Contrast Metoprolol Tartrate 11/18/2006 Made pulse low [place] Oil-Black Currant-Vit E 07/10/2010 Verapamil 03/21/2004 Bupropion Hcl 10/30/2009 Makes pt sick in the stomach documented as of this encounter (statuses as of 11/12/2022) Medications Medication Sig Dispensed Refills Start Date [...] J45.909, J44.9 225 mL 1 9 Active Additional Information Patient not taking.Reported on 10/31/2022 Albuterol Sulfate (VENTOLIN HFA) 108 (90 Base) MCG/ACT AERS Inhale 2 Puffs by mouth 2 times a day. 0 0 Active Aspirin 81 MG Oral Tablet Delayed Release Take 1 Tablet by mouth in the morning. 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 20 Tablet 0 3 Active Alum & Mag Hydroxide-Simeth 400-400-40 MG/5ML Oral Suspension (Mi-Acid II) Take 30 mL by mouth every 4 hours as needed for Indigestion. 355 mL 0 3 Active Sulfamethoxazole-Tr imethoprim 800-160 MG Oral Tablet (Bactrim DS) Take 1 Tablet by mouth in the morning and 1 Tablet before bedtime. Do all this for 3 days. 6 Tablet 0 3 11/14/19 23 Active Sucralfate 1 GM Oral Tablet (Carafate) Take 1 Tablet by mouth 4 times a day before meals and at bedtime. 120 Tablet 0 3 12/12/19 23 Active Probiotic Product (PROBIOTIC DAILY) Capsule Take 1 Cap by mouth daily. 0 5 11/11/19 23 Discontinued [facility] SENNA 8.6 MG Tablet Take 1 Tablet by mouth 2 times a day as needed for Constipation. 0 8 11/11/19 23 Discontinued Ciprofloxacin HCl 500 MG Oral Tablet (Cipro) Take 1 Tablet (500 mg) by mouth in the morning and 1 Tablet (500 mg) before bedtime. 80 Tablet 0 2 11/11/19 23 Discontinued metroNIDAZOLE 500 MG Oral Tablet Take 1 Tablet (500 mg) by mouth in the morning and 1 Tablet (500 mg) at noon and 1 Tablet (500 mg) before bedtime. 120 Tablet 0 2 11/11/19 23 Discontinued HYDROcodone-Acetami nophen 5-325 MG Oral TabletIndications:G eneralized osteoarthritis Take 1 Tablet by mouth every 6 hours as needed for Pain, Mild. 120 Tablet 0 3 11/11/19 23 Discontinued documented as of this encounter (statuses as of 11/12/2022) Active Problems Problem Noted Date Protein-calorie malnutrition [...] as of this encounter (statuses as of 11/12/2022) Resolved Problems Problem Noted Date Resolved Date [...] Hypoxemia 10/08/2011 10/30/2015 Genetic Sleep Disorder Research Other*[id number] 07/25/2011 05/15/2016 COPD, moderate 07/19/2011 07/28/2019 Overview: [...] as of this encounter (statuses as of 11/12/2022) Immunizations Name Administration Dates Next Due COVID-19 mRNA, LNP-s, No Pre serve, 2-Dose Series (Mobi) 08/21/2021,12/22/2020,2020 COVID-19, LNP-s, No Preserve , Tyler-sucrose, Ages 12+ (Pfizer) 04/16/2022 Hepatitis B, 20+ yrs 10/01/2017,04/21/2017,03/20 Pneumococcal Conjugate Vacc, 13 Valent (Prevnar) 03/28/2015 Pneumococcal Conjugate Vacci ne, 20-valent ([id number]) 04/01/2022 Pneumococcal Polysaccharide PPV23 (Pneumovax) 05/21/2006 Seasonal [...] Sign Reading Time Taken Comments Blood Pressure 101/83 11/11/2022 7:47 AM EST Pulse 97 11/11/2022 7:47 AM EST Temperature 35.8 C (96.4 F) 11/11/2022 7:47 AM ES T Respiratory Rate 20 11/11/2022 7:47 AM EST Oxygen Saturation 95% 11/11/2022 7:47 AM EST Inhaled Oxygen Concentration - - Weight 95.7 kg (211 lb) 11/08/2022 2:00 PM EST Height 165.1 cm (5' 5") 10/31/2022 12:38 PM EST Body Mass Index 35.11 10/31/2022 12:38 PM EST documented in this encounter Functional [...] No 07/25/2022 documented as of this encounter Discharge Instructions * Discharge Instr - AVS* NIECY Tubbs - 11/04/2022 10:23 AM EST Discharge Date: 11/11/2022 Check your Patient Education Brochure for further information. You may call Dr. Snyder of the department of Colorectal Surgery at [phone] during business hoursfor any questions or test results. For after-hours emergencies, call [phone] and have the provider relationship management lead paged. The information below provides you with [...] your inpatient care: You were admitted to [facility] on 10/31/22. Youhad surgery on 11/01/22. You tolerated the operation well, had adequate pain control, and tolerated a diet before discharge. 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 Research has shown that you will have less complications and return to your normal activity level sooner if you follow these simple instructions. Please follow these instructions carefully. Diet: You should continue on a fiber restricted diet unless otherwise directed by your surgeon. (Avoid fiber supplements, whole grains and raw vegetables.) A fiber restricted diet reduces the size [...] your daily activities or household preparations. Incisions: DERMABOND surgical adhesive covers your incision. This will begin to fall off in about 2 weeks. Do not pick at the wound. Do not apply any ointment or lotion to the incision. You may shower, but do not scrub vigorously over the incisions. Do not immerse the incision (for example, no swimming, no tub baths, no hot tubs). Do not pick at the wound. Do not apply any ointment or lotion to the incision. Wound care: Continue daily packing to lower incision with damp gauze- cover with an ABD pad- you may reduce the amount of packing in the wound as healing occurs Warnings: Once home, call the surgeon promptly [...] habits should become more regular. Additional Instruction: Additional Instructions: - May shower, but do not scrub vigorously over the incisions. - Do not immerse the incision (for example, no swimming, no tub baths, no hot tubs). - Previous JERALD site: you may remove the dressing tomorrow. Change dressings daily and as needed. If it is healed, you may leave it open to air. - Continue oxygen 2 liters per n/c. Date you may return to work or school: N/A Follow up appointment with Teresita GUTIERRES on 11/26/2022 Inpatient test results pending: None Operations & Procedures: Laparoscopic hand assist low anterior resection Complications: none Advance Directive Documented: Advance Directive Does the Patient have an Advance Directive? Not Addressed documented in this encounter Progress Notes * Harjeet Waters MD - 11/02/2022 8:27 AM EST PROGRESS NOTE - [place] [facility] [place] [address] Name: Nina Harrington [place] [facility] [place] B520/A Date: 11/02/2022 Time: 8:27 AM SUBJECTIVE: Patient seen during AM rounds. Reports abdominal pain overnight and nausea. Sánchez in place draining well. PHYSICAL EXAMINATION: Most Recent Vital Signs: BP: 111 mmHg/68 mmHg (11/02/22720) Pulse: 106 (11/02/22720) Temp: 36.11 C (11/02/22720) Resp: 16 (11/02/22720) SpO2: 95 % (11/02/22720) Vital Signs Last 24 Hours: Systolic BP: Most Recent Systolic BP Av.9 mmHg Min: 99 mmHg Max: 158 mmHg Temperature: Most Recent Temperature Av.4 C Min: 35.89 C Max: 37.28 C Pulse: Pulse Av.2 Min: 68 Max: 107 Respirations: Resp Av.8 Min: 14 Max: 24 SpO2: SpO2 Av.8 % Min: 92 % Max: 100 % Intake/Output Summary (Last 24 hours) at 11/02/2022 0827 Last data filed at 11/02/2022 0600 Gross per 24 hour Intake 2975 ml Output 830 ml Net 2145 ml General: awake, alert and responsive Heart:: Regular rate Chest: Normal WOB Abdomen: soft, nondistended, aTTP around incision, JERALD SS Extremities: no deformities : Sánchez in and draining clear yellow urine, ureteral catheter in place x1 CURRENT HOSPITAL MEDICATIONS: Note that completed medications (per the MAR) continue to display for 24 hours. Ordered medicationsto be given in the future also display. Current Facility-Administered Medications Medication Dose Route Frequency Provider Carisoprodol (Soma) tab 175 mg 175 mg Oral Q6H PRN Jaylon Ferraro Jr., MD Furosemide (Lasix) tab 40 mg 40 mg Oral BID(AM/PM) Jaylon Ferraro Jr., MD Acetaminophen (Tylenol) tab 975 mg 975 mg Oral Q6H Chuck Virgen MD Alvimopan (Entereg) cap 12 mg 12 mg Oral BID(AM/PM) Chuck Virgen MD atorvaSTATin (Lipitor) tab 40 mg 40 mg Oral Daily(AM) Jaylon Ferraro Jr., MD HYDROmorphone (Dilaudid) inj 0.5 mg 0.5 mg IV Push Q3H PRN Chuck Virgen MD insulin aspart (NovoLOG) inj Subcutaneous With Meals and HS Chuck Virgen MD isolyte-S pH 7.4 infusion Intravenous Continuous Chuck Virgen MD metoprolol succinate XL (toPROL XL) tab 12.5 mg 12.5 mg Oral Daily(AM) Jaylon Ferraro Jr., MD naloxone (Narcan) 0.4 MG/ML inj 0.08 mg 0.08 mg IV Push PRN Chuck Virgen MD omeprazole (PriLOSEC) cap 20 mg 20 mg Oral BID(AM/PM) Jaylon Ferraro Jr., MD ondansetron ODT (Zofran) tab 4 mg 4 mg On Tongue Q6H PRN Chuck Vrigen MD Or ondansetron (Zofran) inj 4 mg 4 mg IV Push Q6H PRN Chuck Virgen MD oxyCODONE (Oxy IR) tab 10 mg 10 mg Oral Q4H PRN Chuck Virgen MD oxyCODONE (Oxy IR) tab 5 mg 5 mg Oral Q4H PRN Chuck Virgen MD prochlorperazine (Compazine) inj 10 mg 10 mg IV Push Q6H PRN Nicolas Clay DO sertraline (Zoloft) tab 25 mg 25 mg Oral Daily(AM) Jaylon Ferraro Jr., MD traMADol (Ultram) tab 50 mg 50 mg Oral Q6H Chuck Virgen MD Albuterol Sulfate (Proventil) (2.5 MG/3ML) 0.083% inhalation solution 2.5 mg 2.5 mg Nebulizer Q4H PRN Dionte Snyder MD dextrose 50 % inj 25 mL 25 mL IV Push PRN Jaylon Ferraro Jr., MD dextrose 50 % inj 50 mL 50 mL IV Push PRN Jaylon Ferraro Jr., MD glucagon (Glucagen) inj 1 mg 1 mg Intramuscular PRN Jaylon Ferraro Jr., MD Glucose (Glutose 15) 40 % gel 15 g of glucose 15 g of glucose Oral PRN Jaylon Ferraro Jr., MD Glucose (Glutose 15) 40 % gel 30 g of glucose 30 g of glucose Oral PRN Jaylon Ferraro Jr., MD glucose chew tab 16 g 16 g Oral PRN Jaylon Ferraro Jr., MD Ipratropium-Albuterol (Combivent Respimat) inhaler 1 Puff 1 Puff Inhalation Resp QID Dionte Sam MD LABS: CHEMISTRY: BUN, Creatinine, GFR Estimated, Sodium, Potassium, Chloride, Carbon Dioxide, Glucose, Calcium (see below for most recent value): Lab Results Component Value Date/Time BUN 15 11/02/2022 03:27 AM BUN 12 05/27/2020 04:51 PM CREAT 0.9 11/02/2022 03:27 AM CREAT 0.84 08/19/2022 12:00 AM CREAT 1.0 05/27/2020 04:51 PM GFRESTIMATED 50.3 (L) 05/27/2020 04:51 PM NA 138 11/02/2022 03:27 AM NA 140 05/27/2020 04:51 PM POTASSIUM 3.9 11/02/2022 03:27 AM POTASSIUM 3.8 08/19/2022 12:00 AM POTASSIUM 4.0 05/27/2020 04:51 PM CL 103 11/02/2022 03:27 AM CL 97 (L) 05/27/2020 04:51 PM CO2 23 11/02/2022 03:27 AM CO2 32 05/27/2020 04:51 PM CA 8.9 11/02/2022 03:27 AM CA 10.0 05/27/2020 04:51 PM BLOOD COUNT: WBC, Hgb, Platelets (see below for most recent value): Lab Results Component Value Date/Time WBC 22.95 (H) 11/02/2022 03:27 AM WBC 11.86 (H) 05/27/2020 04:51 PM HGB 10.9 (L) 11/02/2022 03:27 AM HGB 9.0 (A) 08/19/2022 12:00 AM HGB 12.3 12/11/2020 05:44 AM HGB 11.4 (L) 05/27/2020 04:51 PM PLT 413 (H) 11/02/2022 03:27 AM PLT 435 (H) 05/27/2020 04:51 PM CULTURES: Lab Results Component Value Date/Time CULTURE LESS THAN 10,000 COLONIES/ML MIXED NORMAL STEVAN 07/09/2019 01:57 PM CULTURE GROWTH No aerobic or anaerobic growth 07/25/2022 02:25 PM IMAGING: No imaging results in the last 72 hours ASSESSMENT: 81F s/p laparoscopic LAR with colorectal surgery and placement of bilateral ureteral catheters by urology PLAN: - Sánchez remains in place and can be removed per primary team - Single ureteral catheter remains in place to be removed by CRS - Rest of care per primary team - Urology will sign off Patient to be discussed with Dr. Sandra Waters MD 11/02/2022 8:27 AM Associated attestation - Saeed Flores MD - 11/02/2022 11:08 AM EST I saw and evaluated the patient today. I have reviewed the trainee note and agree. * Jaylon Ferraro Jr., MD - 11/01/2022 8:02 AM EST PROGRESS NOTE - Colorectal Surgery [facility] [place] [address] Name: Nina Harrington Location: [facility] [place] B520/A Date: 11/01/2022 Time: 8:02 AM DIAGNOSIS: Recurrent diverticulitis PROCEDURE: none this admission DATE OF SURGERY: N/a POST OP DAY: n/a SUBJECTIVE: NAEON, AFVSS. Tolerated bowel prep overnight. Breathing well and denies CP/SOB - states at home shewears 2LNC during the day and 4LNC at night. Denies n/v/abd pain. Last Bowel Movement: 11/01/22 OBJECTIVE: Most Recent Vital Signs: BP: 104 mmHg/69 mmHg (11/01/22724) Pulse: 92 (11/01/22724) Temp: 36.39 C (11/01/22724) Resp: 16 (11/01/22724) SpO2: 97 % (11/01/22724) Vital Signs Last 24 Hours: Systolic BP: Most Recent Systolic BP Av.3 mmHg Min: 97 mmHg Max: 124 mmHg Temperature: Most Recent Temperature Av.5 C Min: 36.22 C Max: 36.72 C Pulse: Pulse Av Min: 61 Max: 104 Respirations: Resp Av Min: 16 Max: 20 SpO2: SpO2 Av.3 % Min: 94 % Max: 100 % In / Out Past 24 Hrs: No intake or output data in the 24 hours ending 11/01/22801 Physical Exam: Constitutional: no acute distress Head/Neck: normal: normocephalic, atraumatic; no masses, tenderness, or adenopathy Eyes: sclera and conjunctiva normal Neck: supple, trachea midline CV: normal rate and rhythm Chest: normal respiratory effort, chest wall normal, CTAB Abdomen: soft, nondistended, nontender Musculoskeletal: (-) negative Extremities: no clubbing or cyanosis, minimal BLE pitting edema Skin: warm, dry Neuro: alert, GCS 15 LABS: Labs reviewed as indicated below: Recent Results (from the past 12 hour(s)) GLUCOSE METER, POINT OF CARE Collection Time: 10/31/22 11:44 PM Result Value Ref Range Glucose Meter 120 70 - 120 mg/dL GLUCOSE METER, POINT OF CARE Collection Time: 11/01/22 4:51 AM Result Value Ref Range Glucose Meter 97 70 - 120 mg/dL CBC Collection Time: 11/01/22 5:13 AM Result Value Ref Range WBC 16.36 (H) 4.00 - 10.80 K/uL RBC 3.48 3.85 - 5.15 M/uL HGB 9.8 (L) 12.0 - 15.3 g/dL HCT 32.8 (L) 36.0 - 45.2 % MCV 94.3 81.5 - 97.5 fL MCH 28.2 27.0 - 34.0 pg MCHC 29.9 32.0 - 36.0 g/dL RDW 15.0 11.5 - 15.5 % PLT 402 (H) 140 - 400 K/uL MPV 9.3 6.6 - 11.1 fL nRBCs 0 <=0 /100 WBCs BASIC METABOLIC PANEL Collection Time: 11/01/22 5:13 AM Result Value Ref Range BUN 19 6 - 20 mg/dL Creatinine 0.9 0.5 - 1.0 mg/dL Estimated Glomerular Filtration Rate 67 >=60 mL/min Sodium 136 135 - 146 mmol/L Potassium 4.2 3.5 - 5.1 mmol/L Chloride 102 98 - 107 mmol/L CO2 26 22 - 32 mmol/L Anion Gap 8 7 - 15 mmol/L Glucose 124 (H) 70 - 120 mg/dL Calcium 8.9 8.4 - 10.2 mg/dL IMAGING: No imaging results in the last 24 hours IMPRESSION: Principal Problem: Diverticulitis of colon Active Problems: Asthma with severity to be determined HTN, goal below 140/90 Type 2 diabetes mellitus with hemoglobin A1c goal of less than 7.5% ([facility]) HECTOR (generalized anxiety disorder) COPD, group B, 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 ([facility]) Morbid obesity with BMI of 40.0-44.9, adult ([facility]) Paroxysmal atrial fibrillation (HCC) Chronic systolic heart failure ([facility]) Chronic kidney disease, stage 3a ([facility]) Resolved Problems: * No resolved hospital problems. * 81 year old female PMH as above presents for LAR today. PLAN: IVF: isolyte @ 100 mL/hr DVT/PE ppx: sequential compression devices (SCD's) Analgesia: preop pain meds ordered Diet: clears, NPO x meds GI ppx: Proton Pump Inhibitor Nausea: zofran Bowel Regimen: bowel prep as ordered Sánchez: N/A Antibiotics: bowel prep and preop abx ordered Labs: AM CBC, BMP Drains/Lines: PIV [place]/Sutures: none Activity: OOB ad elia Respiratory: RPDP Home Medications: restart SOLAR POOL HEATING INSTALLER metoprolol, lipitor, combivent, zoloft, albuterol, omeprazole. Interchange incruse ellipta for SOLAR POOL HEATING INSTALLER spiriva and SSI for SOLAR POOL HEATING INSTALLER glimepiride per protocol. Holding vitamins, SOLAR POOL HEATING INSTALLER abx, phenergan, bentyl, probiotic, vicodin, eye drops. Holding SOLAR POOL HEATING INSTALLER lasix/spironolactone preop, will consider restarting postop Consults Requested: Urology - stents preop Dispo: med surg - surgery today Patient was examined and will be discussed with Dr. Snyedr. Jaylon Ferraro Jr, MD PGY-3, Department of General Surgery 11/01/2022 8:05 AM Associated attestation - Dionte Snyder MD - 11/08/2022 5:21 PM EST I saw and evaluated the patient 11/01/2022. I have reviewed the trainee note and agree. documented in this encounter H&P Notes * Jaylon Ferraro Jr., MD - 10/31/2022 4:56 PM EST HISTORY AND PHYSICAL EXAMINATION - Colorectal Surgery [address] [address] Name: Nina Harrington [place] [facility] [place] [facility] Date: 10/31/2022 Time: 4:57 PM PRESENTING PROBLEM: Colovesical fistula HISTORY OF PRESENT ILLNESS: Nina Harrington is a 81 year old female with PMH as listed below who presents as a pre-admit for surgery tomorrow. Feels well overall, no new complaints. Denies nausea, vomiting, CP, SOB, changes in bowel or bladder, fever, chills, headache, lightheadedness, changes in vision or hearing, or loss of balance. HOSPITAL PROBLEM LIST: Principal Problem: Diverticulitis of colon POA: Yes Active Problems: Asthma with severity to be determined POA: Yes HTN, goal below 140/90 POA: Yes Overview: Per HTN Protocol #27. Type 2 diabetes mellitus with hemoglobin A1c goal of less than 7.5% ([facility]) POA: Yes HECTOR (generalized anxiety disorder) POA: Yes COPD, group B, 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 ([facility]) POA: Yes Overview: Per COPD GOLD Classification Morbid obesity with BMI of 40.0-44.9, adult ([facility]) POA: Yes Paroxysmal atrial fibrillation ([facility]) POA: Yes Chronic systolic heart failure ([facility]) POA: Yes Chronic kidney disease, stage 3a ([facility]) POA: Yes Overview: Per CKD protocol POA = Present On Admission PAST MEDICAL HISTORY: Past Medical History: Diagnosis Date ACEI/ARB contraindicated Asthma Carpal tunnel syndrome DM type 2, goal: symptom mgmt ([facility]) Generalized osteoarthritis HTN, goal below 140/90 Mixed dyslipidemia PAST SURGICAL HISTORY: Past Surgical History: Procedure Laterality Date APPENDECTOMY W/OTHER PROCEDURE 1960 when removed gall bladder COLONOSCOPY, DIAGNOSTIC (RECTUM) 05/29/2016 poor prep, diverticulosis/inpt [facility] COLONOSCOPY, DIAGNOSTIC (RECTUM) 06/05/2017 diverticulosis, repeat 3 yrs/[facility] COLONOSCOPY, DIAGNOSTIC (RECTUM) 02/28/2018 adenomatous polyps, diverticulosis, repeat 3 yrs / [facility] COLONOSCOPY, DIAGNOSTIC (RECTUM) 05/08/2020 inflammatory tissue on bx, diverticulosis / [facility] COLONOSCOPY, W/BIOPSY 03/20/2012 hyperplastic polyps rpt 3 years. EGD, FLEXIBLE, DIAGNOSTIC 04/29/2014 normal/inpt [facility] EGD, FLEXIBLE, DIAGNOSTIC 05/29/2016 fundic submucosal mass/inpt [facility] EGD, FLEXIBLE, DIAGNOSTIC 05/08/2020 normal / [facility] EGD, FLEXIBLE,W/ENDOSCOPIC US 11/08/2016 inflammatory changes, stomach lesion, repeat EUS 1.5 yrs/[facility] EGD, FLEXIBLE,W/ENDOSCOPIC US 05/01/2018 stromal cell (smooth muscle) neoplasm, CBD dilation, repeat 2 yrs (needs OV prior)/[facility] EGD, FLEXIBLE,W/ENDOSCOPIC US 09/01/2020 leiomyoma / [facility] INCISIONAL HERNIA REPAIR, LAP, REDUCIBLE 09/29/2012 Repair of incarcerated supraumbilical (incisional) hernia with [facility] mesh 09/29/12 IR ASPIRATION ABSCESS/COLLECTION 07/25/2022 LIGATE/CUT OVIDUCT(S) REMOVAL OF TONSILS, AGE 12+ age 11 REMOVE GALLBLADDER 1960 SIGMOIDOSCOPY, DIAGNOSTIC 04/29/2014 stool in rectum/inpt [facility] SMALL BOWEL ENDOSCOPY, REMOVE FOREIGN BODY mesh [...] Facility-Administered Medications Medication Dose Route Frequency Provider [START ON 11/01/2022] Acetaminophen (Tylenol) tab 975 mg 975 mg Oral Pre-Op Jaylon Ferraro Jr., MD [START ON 11/01/2022] Alvimopan (Entereg) cap 12 mg 12 mg Oral Cloth Shearing Supervisor Jaylon Ferraro Jr., MD Bisacodyl (Dulcolax) tab 20 mg 20 mg Oral Once Jaylon Ferraro Jr., MD [START ON 11/01/2022] cefOXitin in dextrose (Mefoxin) ivpb 2 g 2 g IV Piggyback Cloth Shearing Supervisor Jaylon Ferraro Jr., MD [START ON 11/01/2022] isolyte-S pH 7.4 infusion Intravenous Continuous Jaylon Ferraro Jr., MD metroNIDAZOLE (Flagyl) tab 1,000 mg 1,000 mg Oral Once Jaylon Ferraro Jr., MD metroNIDAZOLE (Flagyl) tab 1,000 mg 1,000 mg Oral Once Jaylon Ferraro Jr., MD [START ON 11/01/2022] metroNIDAZOLE (Flagyl) tab 1,000 mg 1,000 mg Oral Once Jaylon Ferraro Jr., MD Neomycin Sulfate tab 1,000 mg 1,000 mg Oral Once Jaylon Ferraro Jr., MD Neomycin Sulfate tab 1,000 mg 1,000 mg Oral Once Jaylon Ferraro Jr., MD [START ON 11/01/2022] Neomycin Sulfate tab 1,000 mg 1,000 mg Oral Once Jaylon Ferraro Jr., MD ondansetron ODT (Zofran) tab 8 mg 8 mg On Tongue Once Jaylon Ferraro Jr., MD ondansetron ODT (Zofran) tab 8 mg 8 mg On Tongue Q6H PRN Jaylon Ferraro Jr., MD Polyethylene Glycol 3350 (Miralax) oral powder 238 g 238 g Oral Once Jaylon Ferraro Jr., MD [START ON 11/01/2022] traMADol ER (Ultram ER) tab 200 mg 200 mg Oral Pre-Op Jaylon Ferraro Jr., MD ALLERGIES: Diovan [valsartan], Enalapril, Escitalopram oxalate, Iodinated contrast media, Iodine, Metoprolol tartrate, [place] oil-black currant-vit e, Verapamil, and Wellbutrin [bupropion hcl] ROS: All others negative other than those noted in the HPI. PHYSICAL EXAMINATION: Most Recent Vital Signs: BP: 119 mmHg/72 mmHg (10/31/22 1442) Pulse: 98 (10/31/22 1442) Temp: 36.61 C (10/31/22 1442) Resp: 18 (10/31/22 1442) SpO2: 98 % (10/31/22 1442) Physical Exam: Constitutional: no acute distress Head/Neck: normal: normocephalic, atraumatic; no masses, tenderness, or adenopathy Eyes: sclera and conjunctiva normal Neck: supple, trachea midline CV: normal rate and rhythm Chest: normal respiratory effort, chest wall normal Abdomen: soft, nondistended, nontender Musculoskeletal: (-) negative Extremities: no clubbing, cyanosis, or edema, otherwise grossly normal, warm, and dry Skin: warm, dry Neuro: alert, GCS 15 LABS: Labs reviewed as indicated below: No results found for this or any previous visit (from the past 12 hour(s)). IMAGING: No imaging results in the last 24 hours IMPRESSION and PLAN: 81 year old female PMH as above presents for prep tonight in anticipation of LAR tomorrow IVF: isolyte @ 100 mL/hr DVT/PE ppx: sequential compression devices (SCD's) and subcutaneous low molecular weight heparin Analgesia: preop pain meds ordered Diet: clears, NPO x meds after 2400 GI ppx: Proton Pump Inhibitor Nausea: zofran Bowel Regimen: bowel prep as ordered Sánchez: N/A Antibiotics: bowel prep and preop abx ordered Labs: AM CBC, BMP Drains/Lines: PIV Deann/Sutures: none Activity: OOB ad elia Respiratory: RPDP Consults Requested: none Dispo: med surg - surgery tomorrow REFERRING PHYSICIAN: 1. Dionte Snyder MD PRIMARY CARE PHYSICIAN: Marcela Pinto MD Patient was examined and will be discussed with Dr. Snyder. Jaylon Ferraro Jr, MD PGY-3, Department of General Surgery 10/31/2022 5:04 PM documented in this encounter Consult Notes * Laverne Barth, AKIKO - 11/03/2022 11:48 AM ESTAssociated Order(s): NUTRITION SERVICES (DIETITIAN) CONSULT IP CLINICAL NUTRITION ADULT RISK ASSESSMENT [address] [address] Name: Nina Harrington [place] [facility] [place] Date: 11/03/2022 Time: 11:48 AM How patient was identified (select 2): Medical record number and date Nina Harrington is a 81 year old female being assessed for clinical nutrition risk related to consultby provider and education Primary diagnosis: Patient admitted for colovesical fistula and diverticulitis. Procedure: 11/01/2022 - Hand-assist laparoscopic low anterior resection, takedown of splenic flexure, bilaterallaparoscopic transversus abdominus block Other pertinent information: Patient was alert and oriented at visit. Denies n/v and diarrhea/constipation at this time. Reports primarily consuming coffee and apple juice since procedure. States shetried a few bites of solids before getting nauseous and stopping. Encouraged patient to continue trying a few bites at meals. Patient has had a ~17.5% weight loss over the past 1 year, not nutritionally significant. Weight has been stable since July 2022. Provided patient with low fiber diet education. Patient verbalized understanding. Provided this race and sports book writer's phone number should diet related questions arise post discharge. Provided Joceline Low Fiber Diet education. Gave patient paper copy and shared to patient portal. Anthropometrics Measurements Admission weight (for dietitians): 96.6 kg Height: 165.1 cm (5' 5") (10/31/22 1238) Weight: 96.6 kg (213 lb) (10/31/22 1238) BMI: 35.44 (10/31/22 1238) Usual Body Weight or EDW for Dialysis Patients: 111-115 1 year ago; ~96 lbs for the past 3 months. Diet: Fiber Restricted Previously followed diet: Regular Food Allergies/Intolerances: none known Oral Nutrition Supplement (ONS): none Pertinent medications/vitamins/minerals/supplements: Lasix, novolog, prilosec RISK FACTORS: Adult Energy Intake: No significant decrease - decreased PO intake since procedure on 11/01 Interpretation of Weight Change: No recent/significant weight change Skin: Compromise without nutrition-related implications - abdominal surgical wound NUTRITION RISK CATEGORY: Nutrition Risk Category: Low/Moderate (0-1 factors) Clinical Nutrition Recommendations: Diet: Advance diet when clinically feasible NUTRITION INTERVENTION/PLAN: Education provided: Patient verbalized understanding Continue current care plan Will follow and adjust nutritional plan as medical condition requires. Please contact for change(s)in patient condition requiring earlier intervention. Laverne Barth MS, RDN, LDN Clinical Dietitian I [facility] * Raven Campos, PT - 11/03/2022 8:14 AM EST GENERAL EVALUATION - Physical Therapy OOB Evaluation [address] [address] Name: Nina Harrington [place] [facility] [place] B520/A Date: 11/03/2022 Time: 1:50 PM Nina Harrington is a/an 81 year old female. Patient Status: Inpatient Insurance: Payor: MEDICARE Plan: MEDICARE A AND B Product Type: *No Product type* Payor: [employer] [place] Plan: [employer] [facility] Product Type: HMO Patient Seen: at bedside, nursing cleared patient for therapy Patient Identified By: Name, ID Band and Date Diagnosis: colocutaneous fistula, diverticulitis (11/03/22813) Status of treatment: OOB evaluation completed (11/03/22813) Orders: PT evaluation and treatment (11/03/22813) Weight Bearing Status: Weight bearing as tolerated (11/03/22813) Precautions: Alarms;Falls;Safety;Isolation (contact isolation for ESBL) (11/03/22813) Total Treatment Time--free text: 16 minutes (11/03/22813) Past Medical History: Past Medical History: Diagnosis Date ACEI/ARB contraindicated Asthma Carpal tunnel syndrome DM type 2, goal: symptom mgmt (HCC) Generalized osteoarthritis HTN, goal below 140/90 Mixed dyslipidemia Past Surgical History: Past Surgical History: Procedure Laterality Date APPENDECTOMY W/OTHER PROCEDURE 1960 when removed gall bladder COLONOSCOPY, DIAGNOSTIC (RECTUM) 05/29/2016 poor prep, diverticulosis/inpt [facility] COLONOSCOPY, DIAGNOSTIC (RECTUM) 06/05/2017 diverticulosis, repeat 3 yrs/[facility] COLONOSCOPY, DIAGNOSTIC (RECTUM) 02/28/2018 adenomatous polyps, diverticulosis, repeat 3 yrs / [facility] COLONOSCOPY, DIAGNOSTIC (RECTUM) 05/08/2020 inflammatory tissue on bx, diverticulosis / [facility] COLONOSCOPY, W/BIOPSY 03/20/2012 hyperplastic polyps rpt 3 years. EGD, FLEXIBLE, DIAGNOSTIC 04/29/2014 normal/inpt [facility] EGD, FLEXIBLE, DIAGNOSTIC 05/29/2016 fundic submucosal mass/inpt [facility] EGD, FLEXIBLE, DIAGNOSTIC 05/08/2020 normal / [facility] EGD, FLEXIBLE,W/ENDOSCOPIC US 11/08/2016 inflammatory changes, stomach lesion, repeat EUS 1.5 yrs/[facility] EGD, FLEXIBLE,W/ENDOSCOPIC US 05/01/2018 stromal cell (smooth muscle) neoplasm, CBD dilation, repeat 2 yrs (needs OV prior)/[facility] EGD, FLEXIBLE,W/ENDOSCOPIC US 09/01/2020 leiomyoma / [facility] INCISIONAL HERNIA REPAIR, LAP, REDUCIBLE 09/29/2012 Repair of incarcerated supraumbilical (incisional) hernia with Atrium mesh 09/29/12 IR ASPIRATION ABSCESS/COLLECTION 07/25/2022 LIGATE/CUT OVIDUCT(S) REMOVAL OF TONSILS, AGE 12+ age 11 REMOVE GALLBLADDER 1960 SIGMOIDOSCOPY, DIAGNOSTIC 04/29/2014 stool in rectum/inpt [facility] SMALL BOWEL ENDOSCOPY, REMOVE FOREIGN BODY mesh from prior hernia surgery, wrapped around small bowel. small bowel surgery Subjective: Pt in bed and willing to get up to the chair. 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/Disposition Lives with: Alone (11/03/22813) Assistance available: Yes (11/03/22813) Dwelling type: Single story home (11/03/22813) Entry steps: 4 (11/03/22813) Inside steps: None (11/03/22813) Bedroom location: 1st floor (11/03/22813) Bath location: 1st floor full bath (11/03/22813) Prior Level of Function Reported by: Patient (11/03/22813) Ambulation: Ambulatory with device (11/03/22813) Ambulatory Device: (RW or cane PRN) (11/03/22813) Devices at home: Rolling walker;Straight cane (11/03/22813) Observations Consciousness: Alert (11/03/22813) Orientation: Oriented times 4 (11/03/22813) Psychosocial: Patient can communicate basic needs;Patient can converse in a social setting (11/03/22813) Other Findings: Yes (11/03/22813) Findings: Light touch sensation (11/03/22813) Light Touch Sensation Results: Intact;LLE;RLE (11/03/22813) Sitting Posture: Not assessed (11/03/22813) Standing Posture: Not assessed (11/03/22813) Pain: No complaints of pain Range of Motion Range of Motion: WNL (11/03/22813) Strength Assessment Strength Assessment: Deficits noted (11/03/22813) WNL, except: LLE;RLE (11/03/22813) LLE: Hip;2+/5;Knee;4/5;Ankle;4+/5 (11/03/22813) RLE: Hip;2+/5;Knee;4/5;Ankle;4+/5 (11/03/22813) P.T. Bed Mobility Supine-Sit: Minimal Assistance (Ax2) (11/03/22813) Sit-Supine: Minimal Assistance (Ax2) (11/03/22813) Transfers Sit-Stand: Moderate Assistance (Ax2) (11/03/22813) Stand-Sit: Moderate Assistance (Ax2) (11/03/22813) Ambulation: Distance ambulated (feet): 5 ft Assistive Device: Rolling walker Assist: Minimal Assistance Ax2 Balance Sit (Static): Good (11/03/22813) Sit (Dynamic): Good (11/03/22813) Stand (Static): Fair (11/03/22813) Stand (Dynamic): Fair (F-) (11/03/22813) Patient and or Family Goal(s): to get well Patient Education Review of Precautions: Safety (11/03/22813) Safety Awareness: Patient verbalizes insight of current deficits (11/03/22813) Preferred learning method: Combination (11/03/22813) Barriers to learning: Medical Status;Medication (pain) (11/03/22813) Method of Education: Verbalized to patient (11/03/22813) Topic of Education: Safety with mobility, Goals/plan of care and Use of assistive device Method of Education: Verbal discussion and explanation provided to patient: verbalized understanding and or agreement of this information Treatment Provided: Therapeutic Activities 16 minutes: bed mobility training transfer training Alarm Status Patient positioned in: Chair (11/03/22813) With: Pressure pad alarm intact and functioning and call harrison in reach (11/03/22813) Treatment Status: Treatment at bedside (11/03/22813) Goals: Demonstrate Bed Mobility with: Supine to Sit: independent (pt does 100%) Demonstrate Transfers with: Bed to chair: independent (pt does 100%) Demonstrate Ambulation: assistive device: rolling walker distance in feet: 150 ft level of assistance on level surface: supervision (with cues) Demonstrate Stairclimbing: Number of steps: 4 and Level of Assistance: supervision (with cues) Increase Balance: G Time Frame: 10 visits Assessment: Pt seen for out of bed assessment today. Pt was able to complete all bed mobility with Min Ax2 and all transfers with Mod Ax2. She was able to ambulate 5 ft with wheeled walker Min Ax2 with cues for safety and reaching back for the chair. Feel pt would benefit from PT services in orderto increase overall functional mobility as well as activity tolerance. Please consider post- acute care services which may include home health, penitentiary, outpatient therapy or inpatient rehabilitation. The level of care will be determined in collaboration with patient, family/caregiver and care team members. Deficits requiring P.T. treatment needs: Weakness;Endurance (11/03/22813) Equipment Needs: Treatment Plan: Bed mobility training, Transfer training, Gait training, Elevation training and Balance activities Anticipated Frequency (on eval): 1 to 3 times per week (11/03/22813) AM PAC Score with Stairs: 16 A portion of this AM-PAC assessment not scored based on functional assessment due to no assessment of elevations; rather clinical decision making utilized based on current findings and/or prior levelof function. Please refer to future AM-PAC calculations of functional ability as they become available. * Octavio Cao OTR/L - 11/03/2022 8:14 AM EST GENERAL OOB EVALUATION - Occupational Therapy [address] [address] Name: Nnia Harrington [place] [facility] [place] Date: 11/03/2022 Time: 2:18 PM Nina Harrington is a 81 year old female. Patient Status: Inpatient Insurance: Payor: MEDICARE Plan: MEDICARE A AND B Product Type: *No Product type* Payor: [employer] [place] Plan: [employer] [facility] Product Type: HMO Patient Seen: at bedside, nursing cleared patient for therapy Patient Identified By: Name, ID Band and Date Diagnosis: colocutaneous fistula, diverticulitis (11/03/22813) Status of treatment: OOB evaluation completed (11/03/22813) Orders: OT evaluation and treatment;OT OOB (11/03/22813) Weight Bearing Status: Weight bearing as tolerated (11/03/22813) Precautions: Alarms;Falls;Safety (11/03/22813) Total Treatment Time: 16 (11/03/22813) Past Medical History: Past Medical History: Diagnosis Date ACEI/ARB contraindicated Asthma Carpal tunnel syndrome DM type 2, goal: symptom mgmt (HCC) Generalized osteoarthritis HTN, goal below 140/90 Mixed dyslipidemia Past Surgical History: Past Surgical History: Procedure Laterality Date APPENDECTOMY W/OTHER PROCEDURE 1960 when removed gall bladder COLONOSCOPY, DIAGNOSTIC (RECTUM) [facility]29[facility], [facility] 06/05/2017 diverticulosis, repeat 3 yrs/[facility] COLONOSCOPY, DIAGNOSTIC (RECTUM) 02/28/2018 adenomatous polyps, diverticulosis, repeat 3 yrs / [facility] COLONOSCOPY, DIAGNOSTIC (RECTUM) 05/08/2020 inflammatory tissue on bx, diverticulosis / [facility] COLONOSCOPY, W/BIOPSY 03/20/2012 hyperplastic polyps rpt 3 years. EGD, FLEXIBLE, DIAGNOSTIC 04/29/2014 normal/[facility] EGD, FLEXIBLE, DIAGNOSTIC 05/29/2016 fundic submucosal mass/[facility] EGD, FLEXIBLE, DIAGNOSTIC 05/08/2020 normal / [facility] EGD, FLEXIBLE,W/ENDOSCOPIC US 11/08/2016 inflammatory changes, stomach lesion, repeat EUS 1.5 yrs/[facility] EGD, FLEXIBLE,W/ENDOSCOPIC US 05/01/2018 stromal cell (smooth muscle) neoplasm, CBD dilation, repeat 2 yrs (needs OV prior)/[facility] EGD, FLEXIBLE,W/ENDOSCOPIC US 09/01/2020 leiomyoma / [facility] INCISIONAL HERNIA REPAIR, LAP, REDUCIBLE 09/29/2012 Repair of incarcerated supraumbilical (incisional) hernia with Atrium mesh 09/29/12 IR ASPIRATION ABSCESS/COLLECTION 07/25/2022 LIGATE/CUT OVIDUCT(S) REMOVAL OF TONSILS, AGE 12+ age 11 REMOVE GALLBLADDER 1960 SIGMOIDOSCOPY, DIAGNOSTIC 04/29/2014 stool in rectum/[facility] SMALL BOWEL ENDOSCOPY, REMOVE FOREIGN BODY mesh from prior hernia surgery, wrapped around small bowel. small bowel surgery 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/Disposition Lives with: Alone (11/03/22813) Assistance available: Yes (11/03/22813) Dwelling type: Single story home (11/03/22813) Entry steps: 4 (11/03/22813) Inside steps: None (11/03/22813) Bedroom location: 1st floor (11/03/22813) Bath location: 1st floor full bath (11/03/22813) Prior Level of Function Reported by: Patient (11/03/22813) Ambulation: Ambulatory with device (11/03/22813) Ambulatory Device: Rolling walker (11/03/22813) Grooming: Independent (11/03/22813) Bathing: Independent (11/03/22813) Dressing: Independent (11/03/22813) Feeding: Independent (11/03/22813) Toileting: Independent (11/03/22813) Durable Medical Equipment at home: Rolling walker;Straight cane (11/03/22813) Pain: Patient has complaints of pain. Pain located in abdominal area. Did not rate pain, Nursing aware and addressing. Observations Consciousness: Alert (11/03/22813) Orientation: Oriented times 4 (11/03/22813) Psychosocial: Patient can communicate basic needs;Patient can converse in a social setting (11/03/22813) Sitting posture: Forward head;Rounded shoulders (11/03/22813) Standing posture: Forward head;Rounded shoulders (11/03/22813) Safety awareness: The Patient verbalizes insight of current deficits. (11/03/22813) Other Findings Endurance: Fair (11/03/22813) Light touch sensation: LUE;RUE;Intact (11/03/22813) Coordination: LUE;RUE;Intact (11/03/22813) Current Functional Status: Bilateral Upper Extremity Range of Motion: WFL (11/03/22813) Self Care Able to provide self care: Yes (11/03/22813) Grooming: Supervision (Please comment) (washing face) (11/03/22813) Dressing Upper Body: Not Tested (Pt declined gown) (11/03/22813) Lower Body: Maximal Assistance (to don socks due to pain) (11/03/22813) Functional Ambulation Assistive Device: Rolling walker (11/03/22813) Distance in feet:: 5 (11/03/22813) Level of Assistance: Minimal Assistance (x2) (11/03/22813) Bed Mobility Supine-Sit: Minimal Assistance (x2) (11/03/22813) OT Transfers Sit-Stand: Moderate Assistance (x2) (11/03/22813) Stand-Sit: Moderate Assistance (x2) (11/03/22813) Balance Sit (Static): Fair (11/03/22813) Sit (Dynamic): Fair (-) (11/03/22813) Stand (Static): Poor (11/03/22813) Stand (Dynamic): Poor (11/03/22813) Alarm Status Patient positioned in: Chair (11/03/22813) With: Pressure pad alarm intact and functioning and call harrison in reach (11/03/22813) Patient and Family Goals: to get well and to return home Patient Education Education Topic: Role of OT;Plan of care goals (11/03/22813) Review of Precautions: Safety;Fall (11/03/22813) Method of Education: Verbalized to patient (11/03/22813) Education Provided to: Patient (11/03/22813) Response to Education: Receptive and agreeable to education (11/03/22813) Barriers to learning: None (11/03/22813) Preferred learning method: Combination (11/03/22813) Treatment Provided: Therapeutic Activity: 16 minutes Deficits Requiring O.T. Treatment: Deficits requiring O.T. treatment needs: ADL/self-care;Balance;Endurance;Functional mobility;Safety;Upper extremity strength;Upper extremity range of motion;Weakness (11/03/22813) Goals: Dressing/ Bathing: Pt will complete UB dressing with modified independence Pt will complete LB dressing with modified independence Pt will complete UB bathing with modified independence Pt will complete LB bathing with modified independence Grooming: Pt will complete grooming with modified independence Toileting: Pt will complete toileting with modified independence Transfers/ Mobility: Pt will complete bed mobility (supine <> sit) with modified independence Pt will complete transfers with modified independence Pt will complete functional mobility using least restrictive device with modified independence Strength/ROM: Pt will increase BUE strength at least 1/2 muscle grade Pt will increase ROM in BUE Endurance: Pt will increase standing balance to Fair+ grade Pt will increase dynamic sitting balance to Fair+ grade Pt will be edu and use adaptive equipment prn Goal Time Frame: 8 visits Assessment: Pt seen for out of bed and functional assessment this date. Pt supine in bed upon entering, agreeable to work with therapy. Pt completed bed mobility supine > sit edge of bed with Min A x2. Pt sat edge of bed with fair to fair- sitting balance to engage in core strengthening. Pt required Max A for LB dressing this date due to limited anterior reach due to pain. Pt declined new gown, Pt able to simulate UB dressing as BUE ROM was WFL. Pt transferred with Mod A x2 and able to mobilize from bed to chair ~5ft at Min A x2 before sitting. Pt sat in recliner and washed face with supervision and setup. Further ADLs and mobility deferred due to Pt's pain and limited activity tolerance. Following session patient seated OOB in chair with chair alarm activated and cord plugged into call harrison system. Pt will benefit from OT services to maximize independence with ADLs and functional mobility prior to d/c. Please consider post-acute care services which may include home health, skillednursing, outpatient therapy or inpatient rehabilitation. The level of care will be determined in collaboration with patient, family/caregiver and care team members. Treatment Plan: Energy Conservation, Safety, Bed mobility training, Functional Ambulation, Transfertraining, Upper extremity strengthening, Balance activities, ADL training, and Endurance Anticipated Frequency (on eval): 1 to 3 times per week (11/03/22813) AM-PAC Help From Another Person Eating Meals: None (11/03/22813) Help From Another Person Taking Care of Personal Grooming: A little (11/03/22813) Help From Another Person To Put On/Take Off Upper Body Clothing: A little (11/03/22813) Help From Another Person To Put On/Take Off Lower Body Clothing: A lot (11/03/22813) Help From Another Person Toileting: A lot (11/03/22813) Help From Another Person Bathing: A lot (11/03/22813) OT AM-PAC Score: 16 (11/03/22813) OT AM-PAC t-Scale Score: 35.96 (11/03/22813) HLM (Highest Level of Mobility) Goal: Level 5 standing (1 or more minutes) (11/03/22813) A portion of this AM-PAC assessment not scored based on functional assessment, rather clinical decsion making utilized based on current findings and/or prior level of function. Please refer to futureAM-PAC calculations of functional ability as they become available. * Elenita Francois DPT - 11/02/2022 12:42 PM ESTAssociated Order(s): ADULT PHYSICAL THERAPY CONSULT IP GENERAL EVALUATION - Physical Therapy [facility] [address] [address] Name: Nina Harrington [place] [facility] [place] B[place] Date: 11/02/2022 Time: 12:42 PM Nina Harrington is a/an 81 year old female. Patient Status: Inpatient Insurance: Payor: MEDICARE Plan: MEDICARE A AND B Product Type: *No Product type* Payor: [employer] [place] Plan: [employer] [facility] Product Type: HM Patient Seen: at bedside, nursing cleared patient for therapy Patient Identified By: Name, ID Band and Date Diagnosis: colocutaneous fistula, diverticulitis (11/02/22837) Status of treatment: Bedrest evaluation completed (11/02/22837) Orders: PT evaluation and treatment (11/02/22837) Weight Bearing Status: Weight bearing as tolerated (11/02/22837) Precautions: Alarms;Falls;Safety;Isolation (contact isolation for ESBL) (11/02/22837) Total Treatment Time--free text: 8 (11/02/22837) Per Epic: DIAGNOSIS: Recurrent diverticulitis, colovesical fistula PROCEDURE: Hand-assisted laparoscopic low anterior resection with primary anastomosis DATE OF SURGERY: 11/01/2022 Past Medical History: Past Medical History: Diagnosis Date ACEI/ARB contraindicated Asthma Carpal tunnel syndrome DM type 2, goal: symptom mgmt (HCC) Generalized osteoarthritis HTN, goal below 140/90 Mixed dyslipidemia Past Surgical History: Past Surgical History: Procedure Laterality Date APPENDECTOMY W/OTHER PROCEDURE 1960 when removed gall bladder COLONOSCOPY, DIAGNOSTIC (RECTUM) [facility], [facility]) 06/05/2017 diverticulosis, repeat 3 yrs/[facility] COLONOSCOPY, DIAGNOSTIC (RECTUM) 02/28/2018 adenomatous polyps, diverticulosis, repeat 3 yrs / [facility] COLONOSCOPY, DIAGNOSTIC (RECTUM) 05/08/2020 inflammatory tissue on bx, diverticulosis / [facility] COLONOSCOPY, W/BIOPSY 03/20/2012 hyperplastic polyps rpt 3 years. EGD, FLEXIBLE, DIAGNOSTIC 04/29/2014 normal/inpt [facility] EGD, FLEXIBLE, DIAGNOSTIC 05/29/2016 [facility], DIAGNOSTIC 05/08/2020 normal / [facility] EGD, FLEXIBLE,W/ENDOSCOPIC US 11/08/2016 inflammatory changes, stomach lesion, repeat EUS 1.5 yrs/[facility] EGD, FLEXIBLE,W/ENDOSCOPIC US 05/01/2018 stromal cell (smooth muscle) neoplasm, CBD dilation, repeat 2 yrs (needs OV prior)/[facility] EGD, FLEXIBLE,W/ENDOSCOPIC US 09/01/2020 leiomyoma / [facility] INCISIONAL HERNIA REPAIR, LAP, REDUCIBLE 09/29/2012 Repair of incarcerated supraumbilical (incisional) hernia with Atrium mesh 09/29/12 IR ASPIRATION ABSCESS/COLLECTION 07/25/2022 LIGATE/CUT OVIDUCT(S) REMOVAL OF TONSILS, AGE 12+ age 11 REMOVE GALLBLADDER 1960 SIGMOIDOSCOPY, DIAGNOSTIC 04/29/2014 stool in rectum/[facility] SMALL BOWEL ENDOSCOPY, REMOVE FOREIGN BODY mesh from prior hernia surgery, wrapped around small bowel. small bowel surgery Subjective: Patient declined OOB at this time due to pain and reported that she just received pain medications that make her sleepy so she declined to get OOB at this time. 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/Disposition Lives with: Alone (11/02/22837) Assistance available: Yes (11/02/22837) Dwelling type: Single story home (11/02/22837) Entry steps: 4 (11/02/22837) Inside steps: None (11/02/22837) Bedroom location: 1st floor (11/02/22837) Bath location: 1st floor full bath (11/02/22837) Prior Level of Function Reported by: Patient (11/02/22837) Ambulation: Ambulatory with device (11/02/22837) Ambulatory Device: (RW or cane PRN) (11/02/22837) Devices at home: Rolling walker;Straight cane (11/02/22837) Observations Consciousness: Alert (11/02/22837) Orientation: Oriented times 4 (11/02/22837) Psychosocial: Patient can communicate basic needs;Patient can converse in a social setting (11/02/22837) Other Findings: Yes (11/02/22837) Findings: Light touch sensation (11/02/22837) Light Touch Sensation Results: Intact;LLE;RLE (11/02/22837) Sitting Posture: Not assessed (11/02/22837) Standing Posture: Not assessed (11/02/22837) Pain: Patient has complaints of pain. Pain located abdomen. 8/10 Range of Motion Range of Motion: WNL (11/02/22837) Strength Assessment Strength Assessment: Deficits noted (11/02/22837) WNL, except: LLE;RLE (11/02/22837) LLE: Hip;2+/5;Knee;4/5;Ankle;4+/5 (11/02/22837) RLE: Hip;2+/5;Knee;4/5;Ankle;4+/5 (11/02/22837) Patient and or Family Goal(s): unable to obtain Patient Education Barriers to learning: Willingness to learn;Medical Status;Medication (pain) (11/02/22837) Topic of Education: Safety with mobility, Goals/plan of care and role of PT Method of Education: Verbal discussion and explanation provided to patient: verbalized understanding and or agreement of this information Treatment Provided: Evaluation Moderate Complexity 8 minutes - 70408: Patient was pleasant during treatment session. Moderate complexity evaluation performed and 1-2 personal factors or comorbiditieswere identified that will impact plan of care, including lives alone at home, obesity and has 4 FERNANDO. Patient presents with limitations in strength and endurance, which will impact plan of care. Theselimitations will be addressed by the goals set for this patient. Alarm Status Patient positioned in: Bed (11/02/22837) With: Bed alarm intact and functioning and call harrison in reach (11/02/22837) Goals: Increase ROM of: WNL Increase Strength of: 4+/5 BLE Other: Assess bed mobility, balance, transfers, gait, and stairs Time Frame: 10 visits Assessment: Patient is an 81 year old female admitted [place] [facility] with dx as stated above. The patient was seen today for PT evaluation, but pt declined OOB assessment due to pain and affectsof pain medications. Currently, the patient demonstrated a decrease in LE strength, especially hips, due to pain and therefore has decreased endurance as well. She would benefit from con't services for strengthening and for overall functional mobility and balance assessment as able at which time discharge needs can be determined. Deficits requiring P.T. treatment needs: Weakness;Endurance (11/02/22837) Equipment Needs: Treatment Plan: ROM exercises: and Strengthening exercises: Anticipated Frequency (on eval): 1 to 3 times per week (11/02/22837) AM PAC Score with Stairs: AM-PAC assessment not scored at this time due to bedrest evaluation only.Please refer to future AM-PAC calculations of functional mobility as they become available. * ASAD Piper - 11/02/2022 8:46 AM ESTAssociated Order(s): CARE MANAGEMENT CONSULT IP Thank you for your consult request. Please see ancillary tab for further care management involvement. * Brayden Cali OT - 11/02/2022 8:38 AM ESTAssociated Order(s): ADULT OCCUPATIONAL THERAPY CONSULT IP GENERAL BEDREST EVALUATION- Occupational Therapy [address] [address] Name: Nina Harrington [place] [facility] [place] B520/A Date: 11/02/2022 Time: 2:18 PM HPI: Per EPIC, "Nina Harrington is a 81 year old female with PMH as listed below who presents as a pre-admit for surgery tomorrow. Feels well overall, no new complaints. Denies nausea, vomiting, CP, SOB, changes in bowel or bladder, fever, chills, headache, lightheadedness, changes in vision or hearing, or loss of balance." Patient Status: Inpatient Insurance: Payor: MEDICARE Plan: MEDICARE A AND B Product Type: *No Product type* Payor: [employer] [place] Plan: [employer] [facility] Product Type: HMO Patient Seen: at bedside, nursing cleared patient for therapy Patient Identified By: Name, ID Band and Date Diagnosis: colocutaneous fistula, diverticulitis (11/02/22837) Status of treatment: Bedrest evaluation completed (11/02/22837) Orders: OT evaluation and treatment;OT OOB (11/02/22837) Weight Bearing Status: Weight bearing as tolerated (11/02/22837) Precautions: Alarms;Falls;Safety (11/02/22837) Total Treatment Time: 10 (11/02/22837) Past Medical History: Past Medical History: Diagnosis Date ACEI/ARB contraindicated Asthma Carpal tunnel syndrome DM type 2, goal: symptom mgmt (HCC) Generalized osteoarthritis HTN, goal below 140/90 Mixed dyslipidemia Past Surgical History: Past Surgical History: Procedure Laterality Date APPENDECTOMY W/OTHER PROCEDURE 1960 when removed gall bladder COLONOSCOPY, DIAGNOSTIC (RECTUM) 05/29/2016 poor prep, diverticulosis/inpt [facility] COLONOSCOPY, DIAGNOSTIC (RECTUM) 06/05/2017 diverticulosis, repeat 3 yrs/[facility] COLONOSCOPY, DIAGNOSTIC (RECTUM) 02/28/2018 adenomatous polyps, diverticulosis, repeat 3 yrs / [facility] COLONOSCOPY, DIAGNOSTIC (RECTUM) 05/08/2020 inflammatory tissue on bx, diverticulosis / [facility] COLONOSCOPY, W/BIOPSY 03/20/2012 hyperplastic polyps rpt 3 years. EGD, FLEXIBLE, DIAGNOSTIC 04/29/2014 normal/inpt [facility] EGD, FLEXIBLE, DIAGNOSTIC 05/29/2016 fundic submucosal mass/inpt [facility] EGD, FLEXIBLE, DIAGNOSTIC 05/08/2020 normal / [facility] EGD, FLEXIBLE,W/ENDOSCOPIC US 11/08/2016 inflammatory changes, stomach lesion, repeat EUS 1.5 yrs/[facility] EGD, FLEXIBLE,W/ENDOSCOPIC US 05/01/2018 stromal cell (smooth muscle) neoplasm, CBD dilation, repeat 2 yrs (needs OV prior)/[facility] EGD, FLEXIBLE,W/ENDOSCOPIC US 09/01/2020 leiomyoma / [facility] INCISIONAL HERNIA REPAIR, LAP, REDUCIBLE 09/29/2012 Repair of incarcerated supraumbilical (incisional) hernia with Atrium mesh 09/29/12 IR ASPIRATION ABSCESS/COLLECTION 07/25/2022 LIGATE/CUT OVIDUCT(S) REMOVAL OF TONSILS, AGE 12+ age 11 REMOVE GALLBLADDER 1960 SIGMOIDOSCOPY, DIAGNOSTIC 04/29/2014 stool in rectum/inpt [facility] SMALL BOWEL ENDOSCOPY, REMOVE FOREIGN BODY mesh from prior hernia surgery, wrapped around small bowel. small bowel surgery 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/Disposition Lives with: Alone (11/02/22837) Assistance available: Yes (11/02/22837) Dwelling type: Single story home (11/02/22837) Entry steps: 4 (11/02/22837) Inside steps: None (11/02/22837) Bedroom location: 1st floor (11/02/22837) Bath location: 1st floor full bath (11/02/22837) Prior Level of Function Reported by: Patient (11/02/22837) Ambulation: Ambulatory with device (11/02/22837) Ambulatory Device: (RW/Straight Cane) (11/02/22837) Grooming: Independent (11/02/22837) Bathing: Independent (11/02/22837) Dressing: Independent (11/02/22837) Feeding: Independent (11/02/22837) Toileting: Independent (11/02/22837) Durable Medical Equipment at home: Rolling walker;Straight cane (11/02/22837) Observations Consciousness: Alert (11/02/22837) Orientation: Oriented times 4 (11/02/22837) Psychosocial: Patient can communicate basic needs;Patient can converse in a social setting (11/02/22837) Safety awareness: The Patient verbalizes insight of current deficits. (11/02/22837) Pain: Patient has complaints of moderate-sever surgical site pain Current Functional Status: UE Strength/ROM: BUE are WFL and 4/5 throughout Self Care Able to provide self care: Yes (11/02/22837) Patient and or Family Goal(s): None Alarm Status Patient positioned in: Bed (11/02/22837) With: Bed alarm intact and functioning and call harrison in reach (11/02/22837) Treatment Provided: Evaluation Low Complexity 10 minutes - 39932: Patient was cooperative during treatment session. Low complexity evaluation performed and decreased strength and decreased endurance deficits were identified that result in activity limitation. The patient does not have any comorbidities that affect occupational performance. There were no modifications necessary to complete the evaluation. Patient Education Education Topic: Role of OT;Plan of care goals (11/02/22837) Review of Precautions: Safety;Fall (11/02/22837) Method of Education: Verbalized to patient (11/02/22837) Education Provided to: Patient (11/02/22837) Response to Education: Receptive and agreeable to education (11/02/22837) Barriers to learning: None (11/02/22837) Preferred learning method: Combination (11/02/22837) Method of Education: Verbal discussion and explanation provided to patient: verbalized understanding and or agreement of this information Assessment: Patient is an 81 year old female admitted on 10/31/22 with diverticulitis, now seen postop. She was previously living at home and reports being independent for ADLs/mobility. On exam, patient presents with minor weakness throughout BUE. She declined further activity at this time due to p ain/wanting to rest. She was educated on importance of mobility post op, however, continued to decline. Patient would benefit from follow up to assess ADLs/mobility as able. AM-PAC assessment not scored at this time due to bedrest eval only. Please refer to future AM-PAC calculations of functional mobility as they become available. Deficits requiring O.T. treatment needs: ADL/self-care;Endurance;Upper extremity strength;Weakness (11/02/22837) Goals: Assess as able: OOB mobility and self care Increase strength of BUE by one grade throughout Treatment Plan: Accuracy with Precautions, Safety, Bed mobility training, Functional Ambulation, Transfer training, Coordination Tasks, Upper extremity strengthening, Balance activities, ADL trainingand Endurance Goal Time Frame:8 visits Anticipated Frequency (on eval): 1 to 3 times per week (11/02/22837) * Caitlin Farias MD - 11/01/2022 7:41 AM ESTAssociated Order(s): UROLOGY CONSULT IP CONSULT - U[place] [facility] [place] [address] Name: Nina Harrington Location: [facility] [place] B5/A Date: 11/01/2022 Time: 7:41 AM HPI: Nina Harrington is a 81 year old female with history of recurrent diverticulitis who is scheduled to undergo lap/possible open low anterior resection with colorectal surgery. prophylatic ureteral stent placement was requested by primary service. Patient denies history of problems with kidney or bladder. She never had any surgery. Surgical hx significant for open cholecystectomy and tubal ligation She has complained of pneumaturia for past several months which led to evaluation for colovesical fistula Past Medical History: Diagnosis Date ACEI/ARB contraindicated Asthma Carpal tunnel syndrome DM type 2, goal: symptom mgmt (HCC) Generalized osteoarthritis HTN, goal below 140/90 Mixed dyslipidemia Past Surgical History: Procedure Laterality Date APPENDECTOMY W/OTHER PROCEDURE 1960 when removed gall bladder COLONOSCOPY, DIAGNOSTIC (RECTUM) 05/29/2016 poor prep, diverticulosis/inpt [facility] COLONOSCOPY, DIAGNOSTIC (RECTUM) 06/05/2017 diverticulosis, repeat 3 yrs/[facility] COLONOSCOPY, DIAGNOSTIC (RECTUM) 02/28/2018 adenomatous polyps, diverticulosis, repeat 3 yrs / [facility] COLONOSCOPY, DIAGNOSTIC (RECTUM) 05/08/2020 inflammatory tissue on bx, diverticulosis / [facility] COLONOSCOPY, W/BIOPSY 03/20/2012 hyperplastic polyps rpt 3 years. EGD, FLEXIBLE, DIAGNOSTIC 04/29/2014 normal/inpt [facility] EGD, FLEXIBLE, DIAGNOSTIC 05/29/2016 fundic submucosal mass/inpt [facility] EGD, FLEXIBLE, DIAGNOSTIC 05/08/2020 normal / [facility] EGD, FLEXIBLE,W/ENDOSCOPIC US 11/08/2016 inflammatory changes, stomach lesion, repeat EUS 1.5 yrs/[facility] EGD, FLEXIBLE,W/ENDOSCOPIC US 05/01/2018 stromal cell (smooth muscle) neoplasm, CBD dilation, repeat 2 yrs (needs OV prior)/[facility] EGD, FLEXIBLE,W/ENDOSCOPIC US 09/01/2020 leiomyoma / [facility] INCISIONAL HERNIA REPAIR, LAP, REDUCIBLE 09/29/2012 Repair of incarcerated supraumbilical (incisional) hernia with Atrium mesh 09/29/12 IR ASPIRATION ABSCESS/COLLECTION 07/25/2022 LIGATE/CUT OVIDUCT(S) REMOVAL OF TONSILS, AGE 12+ age 11 REMOVE GALLBLADDER 1960 SIGMOIDOSCOPY, DIAGNOSTIC 04/29/2014 stool in rectum/inpt [facility] SMALL BOWEL ENDOSCOPY, REMOVE FOREIGN BODY mesh from prior hernia surgery, wrapped around small bowel. 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 Tobacco Use Smoking status: Never Smokeless tobacco: [...] on file Housing Stability: Not on file Current Facility-Administered Medications Medication Dose Route Frequency Provider atorvaSTATin (Lipitor) tab 40 mg 40 mg Oral Daily(AM) Jaylon Freraro Jr., MD meropenem (Merrem) IVPB 1,000 mg 1,000 mg IV Piggyback Cloth Shearing Supervisor Caitlin Farias MD metoprolol succinate XL (toPROL XL) tab 12.5 mg 12.5 mg Oral Daily(AM) Jaylon Ferraro Jr., MD omeprazole (PriLOSEC) cap 20 mg 20 mg Oral BID(AM/PM) Jaylon Ferraro Jr., MD sertraline (Zoloft) tab 25 mg 25 mg Oral Daily(AM) Jaylon Ferraro Jr., MD Acetaminophen (Tylenol) tab 975 mg 975 mg Oral Pre-Op Jaylon Ferraro Jr., MD Albuterol Sulfate (Proventil) (2.5 MG/3ML) 0.083% inhalation solution 2.5 mg 2.5 mg Nebulizer Q4H PRN Dionte Snyder MD Alvimopan (Entereg) cap 12 mg 12 mg Oral Cloth Shearing Supervisor Jaylon Ferraro Jr., MD Carisoprodol (Soma) tab 175 mg 175 mg Oral Q6H PRN Sundeep Melara MD dextrose 50 % inj 25 mL 25 mL IV Push PRN Jaylon Ferraro Jr., MD dextrose 50 % inj 50 mL 50 mL IV Push PRN Jaylon Ferraro Jr., MD glucagon (Glucagen) inj 1 mg 1 mg Intramuscular PRN Jaylon Ferraro Jr., MD Glucose (Glutose 15) 40 % gel 15 g of glucose 15 g of glucose Oral PRN Jaylon Ferraro Jr., MD Glucose (Glutose 15) 40 % gel 30 g of glucose 30 g of glucose Oral PRN Jaylon Ferraro Jr., MD glucose chew tab 16 g 16 g Oral PRN Jaylon Ferraro Jr., MD hEParin inj 5,000 Units 5,000 Units Subcutaneous Once Jaylon Ferraro Jr., MD insulin aspart (NovoLOG) inj Subcutaneous Q6H Jaylon Ferraro Jr., MD Ipratropium-Albuterol (Combivent Respimat) inhaler 1 Puff 1 Puff Inhalation Resp QID Dionte Sam MD isolyte-S pH 7.4 infusion Intravenous Continuous Jaylon Ferraro Jr., MD ondansetron ODT (Zofran) tab 8 mg 8 mg On Tongue Q6H PRN Jaylon Ferraro Jr., MD traMADol ER (Ultram ER) tab 200 mg 200 mg Oral Pre-Op Jaylon Ferraro Jr., MD Review of patient's allergies indicates: Allergen Reactions Diovan [Valsartan] Enalapril Escitalopram Oxalate Nausea/vomiting Nauseated Iodinated Contrast Media Nausea/vomiting IV Contrast Iodine Hives IV Contrast Metoprolol Tartrate Made pulse low [place] Oil-Black Currant-Vit E Verapamil Wellbutrin [Bupropion Hcl] Makes pt sick in the stomach REVIEW OF SYSTEMS: Constitutional: (-) fever Eyes: (-) changes in vision ENT: (-) changes in hearing Cardiovascular: (-) chest pain Pulmonary: (-) shortness of breath Abdominal/GI: (+) pain (-) nausea, vomiting, diarrhea Musculoskeletal: (-) weakness Endocrine: (-) heat or cold intolerance Skin: (-) new rashes : (-) frequency, urgency, incontinence, gross hematuria PHYSICAL EXAMINATION: BP 104/69 | Pulse 92 | Temp 36.4 C (97.5 F) (Tympanic) | Resp 16 | Ht 1.651 m (5' 5") | Wt 96.6kg (213 lb) | SpO2 97% | BMI 35.45 kg/m | BSA 2.1 m Constitutional: Alert, no acute distress Skin: No obvious rashes or lesions Eyes: No scleral icterus ENT/Mouth: No tracheal deviation Cardiovascular: Normal rate, regular rhythm Respiratory: Non-labored breathing Gastrointestinal: Abdomen is soft, non-tender, non-distended Neurological: No gross focal deficits Psychiatric: Normal mood and affect Genitourinary: Voiding volitionally LABS: CHEMISTRY: BUN, Creatinine, GFR Estimated, Sodium, Potassium, Chloride, Carbon Dioxide, Glucose, Calcium (see below for most recent value): Lab Results Component Value Date/Time BUN 19 11/01/2022 05:13 AM BUN 12 05/27/2020 04:51 PM CREAT 0.9 11/01/2022 05:13 AM CREAT 0.84 08/19/2022 12:00 AM CREAT 1.0 05/27/2020 04:51 PM GFRESTIMATED 50.3 (L) 05/27/2020 04:51 PM NA 136 11/01/2022 05:13 AM NA 140 05/27/2020 04:51 PM POTASSIUM 4.2 11/01/2022 05:13 AM POTASSIUM 3.8 08/19/2022 12:00 AM POTASSIUM 4.0 05/27/2020 04:51 PM CL 102 11/01/2022 05:13 AM CL 97 (L) 05/27/2020 04:51 PM CO2 26 11/01/2022 05:13 AM CO2 32 05/27/2020 04:51 PM CA 8.9 11/01/2022 05:13 AM CA 10.0 05/27/2020 04:51 PM BLOOD COUNT: WBC, Hgb, Platelets (see below for most recent value): Lab Results Component Value Date/Time WBC 16.36 (H) 11/01/2022 05:13 AM WBC 11.86 (H) 05/27/2020 04:51 PM HGB 9.8 (L) 11/01/2022 05:13 AM HGB 9.0 (A) 08/19/2022 12:00 AM HGB 12.3 12/11/2020 05:44 AM HGB 11.4 (L) 05/27/2020 04:51 PM PLT 402 (H) 11/01/2022 05:13 AM PLT 435 (H) 05/27/2020 04:51 PM URINALYSIS Results for orders placed or performed in visit on 03/29/21 URINALYSIS, REFLEX TO MICROSCOPIC Result Value Ref Range PROTEIN, UA-OUTSIDE LAB NEG NEG MG/DL Results for orders placed or performed in visit on 07/09/19 URINE W/ MICROSCOPIC Result Value Ref Range Color, Urine YELLOW YEL Clarity, Urine CLEAR CLEAR Glucose, Urine NEGATIVE NEG mg/dL Bilirubin, Urine NEGATIVE NEG Ketone, Urine NEGATIVE NEG mg/dL Specific [place], Urine 1.015 1.003 - 1.030 Blood, Urine NEGATIVE NEG pH, Urine 6.5 5.0 - 7.5 units Protein, Urine TRACE (A) NEG mg/dL Urobilinogen, Urine NORMAL NORM mg/dL Nitrite, Urine NEGATIVE NEG Esterase, Urine NEGATIVE NEG Bacteria, Urine 0-25 [id number] /HPF WBC, Urine 0-2 U02 /HPF RBC, Urine 0-2 U02 /HPF SQ EPITH CELLS,UA MANY (A) NONE /HPF IMAGING: No imaging results in the last 24 hours IMPRESSION: 81 year old female with 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 RECOMMENDATIONS: - Images reviewed, no hydronephrosis bilaterally with normal course of ureter - Risks/benefits of cystoscopy, bilateral ureteral stent placement, possible retrograde pyelogram discussed. Includes but are not limited to bleeding, infection, ureteral injury, reflux anuria. Patient's questions were answered to satisfaction. Consent obtained - Meropenem relationship management lead Thank you for this consult. Please page the on-call Urology provider for any questions or concerns Patient to be discussed with Dr. Flores. Caitlin Farias MD Resident [facility] [phone] Associated attestation - Saeed Flores MD - 11/01/2022 8:48 AM EST I saw and evaluated the patient today. I have reviewed the trainee note and agree. documented in this encounter Nursing Notes * Oksana Purvis RN - 11/11/2022 11:07 AM EST NURSING DISCHARGE PROGRESS NOTE [address] [address] Name: Nina Harrington [place] [facility] [place] B520/A Date: 11/11/2022 Time: 11:07 AM The nursing measures listed below are those which were carried out while the patient was at the facility noted above and are not to be interpreted as physician orders for extended care. ACCOMPANIED BY: ZUHAIR Copeland DESTINATION: DISCHARGE NURSE: Oksana Purvis RN Height: Height: 165.1 cm (5' 5") (10/31/22 1238) Weight: Weight: 95.7 kg (211 lb) (11/08/22 1400) Most Recent Vital Signs: BP: 101 mmHg/83 mmHg (11/11/22746) Pulse: 97 (11/11/22746) Temp: 35.78 C (11/11/22746) Resp: 20 (11/11/22746) SpO2: 95 % (11/11/22746) PAIN LEVEL AT DISCHARGE: Level of Pain: 0/10 Pain Scale Type: [facility] Adult Scale 0-10 BELONGINGS PRESENT ON DISCHARGE: Patient Belongings at Bedside Belongings at Bedside: Clothing;Dentures;Other valuables (11/11/22 1106) Dentures: Uppers (11/01/22 0841) Vision - Corrective Lenses: Glasses (10/31/22 1244) Clothing: Pants;Shirt;Jacket/coat;Bathrobe;Bra;Footwear (10/31/22 1244) Other Valuables: Purse (10/31/22 1244) Patient Belongings Sent to Safe/Locker Belongings Sent to Safe: None (11/11/22 110) I verified that all belongings were present at discharge. (Nurse initials - EH) Medications Brought by Patient?: No (11/11/22 110) Home Medications: N/A (11/11/22 110) I verified that all remaining home medications were returned to patient at discharge. (Nurse initials - EH) HARD COPY OF NARCOTIC PRESCRIPTION SIGNED AND PROVIDED TO PATIENT UPON HOSPITAL DISCHARGE: N/A READMISSION RISK (SCORE): Readmission Risk Score: 30.92 (11/11/22 08) RESTRAINTS THIS HOSPITALIZATION: no BEHAVIORAL CONCERNS: none IMMUNIZATIONS GIVEN THIS ADMISSION: none NEUROLOGICAL Terry Coma Scale: Best Verbal Response: Verbally appropriate for age (11/11/22 08) Best Motor Response: Obeys commands appropriate for age (11/11/22 08) Coma Score: 15 (11/11/22 08) Extremity Movement: RLE Motor Strength: 5-Active movement with full resistance (11/10/222002) RUE Motor Strength: 5-Active movement with full resistance (11/10/222002) LLE Motor Strength: 5-Active movement with full resistance (11/10/222002) LUE Motor Strength: 5-Active movement with full resistance (11/10/222002) Pupil Size/Reaction: SEIZURE PRECAUTIONS: no SENSORY DEFICITS: no SPEECH, HEARING, VISION PROBLEMS: Is patient non-verbal or have difficulty speaking? no LANGUAGE BARRIER: no FEEDING: feeds self if all food prepared ORAL HYGIENE: brushes own teeth Functional [place] Measure (must be completed for all patients on discharge): Feedin = complete independence Locomotion: 2 = modified dependence Expression: 4 = complete independence Transfer Mobility/Ambulation Status: 2 = modified dependence Social Interaction: 4 = complete independence Dressin = modified dependence Hygiene: 2 = modified dependence RESPIRATORY: Discharged with Oxygen: yes, O2 flow rate: 4 L/MIN (11/11/22 07), Ventilator: no Trach/Date of Trach: no Left Breath Sounds: Diminshed (11/09/22799) Right Breath Sounds: Diminished (11/09/22799) CARDIOVASCULAR: (Cardiovascular WNL = Rhythm regular, normal rate per age, normal heart sounds (not accentuated, diminished or split,) no edema, brisk capillary refill, pulses present, no murmur.) Observation WNL = Observation WNL: WNL except for items charted below (11/11/22799) Heart Sounds: S1;S2 (11/10/222002) Rhythm: Regular (11/11/22746) Extremities: +Sensation;Right;Left;Upper;Lower (11/10/222002) Pulses Right: Dorsalis Pedis +;Palpable;Radial + (11/10/222002) Pulses Left: Dorsalis Pedis +;Palpable;Radial + (11/10/222002) Edema: Yes (11/11/22799) Edema Location: Both; Lower extremities (11/11/22799) Edema Assessment: +1 - Description (11/11/22799) Capillary Refill: 3 sec (11/10/22799) Intravenous Lines: other - Removed for discharge INTEGUMENTARY: Integumentary Observations: incision - to mid abdomen, lap sites Wound(s): Excoriated abdominal folds MUSCULOSKELETAL: Equipment needs: Rolling walker (11/07/22 0832) Prosthetic(s): no GI ELIMINATION: (GI WNL = Abdomen flat, soft, no tenderness, symmetrical. Normal active bowel sounds present in all4 quadrants.) Observation WNL: Observation WNL: Yes (11/11/22799) Last Bowel Movement: 11/08/22 (11/08/22 2237) Ostomy Present: no ELIMINATION: ( WNL = Genitalia intact without discharge, swelling or pain. Urine clear and pale yellow, no foul smell. Continence appropriate for age. No bladder distention - absence of urinary devices - no hemo or peritoneal dialysis.) Observation WNL: Observational WNL: Yes (11/11/22799) Ostomy Present: no REPRODUCTIVE: Reproductive/Sexual Concerns: no Drainage: None noted COPING: Family/Community Support Systems in Place: Yes, Emergency Contact Name: Chute Worker: Kaci (11/01/22799) Emergency Contact Number: Contact's (11/01/22799) Patient aware of discharge plans, no concerns voiced. Report called to BIJAL Rodas - no questions at this time. Belongings gathered. Patient condition stable upon discharge. Discharge Checklist: Discharge Instructions - Initials: Prescriptions for Controlled Substances: N/A - Initials: Nursing Discharge Assessment - Initials: Most Recent Medication Administration Record (MAR) - Initials: Home Medications Returned: N/A - Initials: POLST Form (if applicable): N/A - Initials: All IV Fluid sites have been discontinued - yes, date - 11/11/22 - Initials: Lines/Drains/Airways (LDAs) have been completed in flowsheet rows: yes, date - 11/11/22 - Initials: EH * Kayli Horne LPN - 11/10/2022 8:15 PM EST Upon evening assessment, this nurse noticed a change in pts abd wound, with concern of possible reopening of the wound. Provider paged to bedside, provider placed dressing. Pt educated on how to offload her abdominal muscles when turning and getting OOB to BSC. No new orders at this time. * Yolette Velazquez RN - 11/06/2022 6:26 PM EST I agree with Karthikeyan Roth LPN assessment and charting, unless otherwise noted. * Samuel Fleming RN - 11/04/2022 6:12 AM EST Clinical Goal(s): patient will remain safe during my shift (11/03/221999) Possible barriers to meeting goal(s)/advancing plan of care: Stability of the patient: Moderately stable - low risk of patient condition declining or worsening Summary regarding today's goal(s): Met: Patient remained safe during my shift Recommendations: Continue plan of care * ENOC Palumbo - 11/01/2022 3:34 PM EST Post Anesthesia Care Unit Transport Note [address] [address] Dept[address] Nina Harrington Transported from PeriOp to : [facility] Time: 1525 Care of patient transferred to: Christina APPIAH Transported via: Bed Belongings with Patient: NO Pulse : 87 Temp : 36.3 BP : 118 70 Respirations : 14 Pulse Ox : 97 O2 : 4L SCDS: On but not activated/no machine * Storm Hernández RN - 11/01/2022 2:57 PM EST PERIOP TO IP HANDOFF COMMUNICATION NOTE [address] [address] Name: Nina Harrington AGE: [age] year old [place] [facility] [place]: 11/01/2022 Attention to: Svetlana Purvis RN Report from: Storm Hernández RN Patient arriving via: Bed Time of call: 2:57 PM Phone Ext: TT Reason for SBAR (Situation, Background, Assessment, Recommendation) handoff: OR Sending to: [facility] Emotional/Personal Events & Special Needs: none Prescriptions in chart: No Code Status: Full Code Discussion of adv directives occurred with - adult: Patient Safety Concerns: no safety concerns identified Allergies: Diovan [valsartan], Enalapril, Escitalopram oxalate, Iodinated contrast media, Iodine, Metoprolol tartrate, [place] oil-black currant-vit e, Verapamil, and Wellbutrin [bupropion hcl] PMH: Past Medical History: Diagnosis Date ACEI/ARB contraindicated Asthma Carpal tunnel syndrome DM type 2, goal: symptom mgmt (HCC) Generalized osteoarthritis HTN, goal below 140/90 Mixed dyslipidemia PSH: Past Surgical History: Procedure Laterality Date APPENDECTOMY W/OTHER PROCEDURE 1960 when removed gall bladder COLONOSCOPY, DIAGNOSTIC (RECTUM) [facility], [facility] 06/05/2017 diverticulosis, repeat 3 yrs/[facility] COLONOSCOPY, DIAGNOSTIC (RECTUM) 02/28/2018 adenomatous polyps, diverticulosis, repeat 3 yrs / [facility] COLONOSCOPY, DIAGNOSTIC (RECTUM) 05/08/2020 inflammatory tissue on bx, diverticulosis / [facility] COLONOSCOPY, W/BIOPSY 03/20/2012 hyperplastic polyps rpt 3 years. EGD, FLEXIBLE, DIAGNOSTIC 04/29/2014 normal/[facility] EGD, FLEXIBLE, DIAGNOSTIC 05/29/2016 fundic submucosal mass/[facility] EGD, FLEXIBLE, DIAGNOSTIC 05/08/2020 normal / [facility] EGD, FLEXIBLE,W/ENDOSCOPIC US 11/08/2016 inflammatory changes, stomach lesion, repeat EUS 1.5 yrs/[facility] EGD, FLEXIBLE,W/ENDOSCOPIC US 05/01/2018 stromal cell (smooth muscle) neoplasm, CBD dilation, repeat 2 yrs (needs OV prior)/[facility] EGD, FLEXIBLE,W/ENDOSCOPIC US 09/01/2020 leiomyoma / [facility] INCISIONAL HERNIA REPAIR, LAP, REDUCIBLE 09/29/2012 Repair of incarcerated supraumbilical (incisional) hernia with Atrium mesh 09/29/12 IR ASPIRATION ABSCESS/COLLECTION 07/25/2022 LIGATE/CUT OVIDUCT(S) REMOVAL OF TONSILS, AGE 12+ age 11 REMOVE GALLBLADDER 1960 SIGMOIDOSCOPY, DIAGNOSTIC 04/29/2014 stool in rectum/[facility] SMALL BOWEL ENDOSCOPY, REMOVE FOREIGN BODY mesh from prior hernia surgery, wrapped around small bowel. small bowel surgery Isolation: Isolation: Contact Procedure: LAPAROSCOPIC PARTIAL COLECTOMY WITH COLOPROCTOSTOMY General Panel 2 Urology CYSTOURETHROSCOPY WITH INSERTION URETERAL STENT DUAL SERVICE - Bilateral Type of Anesthesia: General endotracheal anesthesia Block: TAP Block IV intake: 2000 mL EBL: OR: 50 mL PACU: 0 mL Urine output: OR 30 mL PACU scant mL IUBC (Sánchez): Incision location: mid abdomen and trochar sites Dressing location: open to air with skin glue and JERALD drain, no drainage counted Time of last skin assessment: 2 Pressure injuries or areas of concern: nothing newly noted Lines: Peripheral Line Left Wrist 20 Gauge (Active) Status Fluids infusing 11/01/22 1300 Tubing Changed Yes 11/01/22 1300 Phlebitis Scale 0 11/01/22 1300 Infiltration Scale 0 11/01/22 1300 Site Description (Other) Without redness, swelling or drainage 11/01/22 1300 Site Intervention Flushed 11/01/22 1300 Dressing Assessment Dressing clean, dry, and intact 11/01/22 1300 Dressing Intervention None required 11/01/22 1300 Number of days: 1 Drain Lonnie Left;Lower;Quadrant Abdomen (Active) Status Bulb Suction 11/01/22 1340 Suction Bulb Suction 11/01/22 1340 Site Description Not visualized, dressing intact 11/01/22 1340 Dressing Assessment Dressing clean, dry, and intact 11/01/22 134 Description of Output Serosanguineous 11/01/22 1340 Dressing Intervention None required 11/01/22 1340 Number of days: 0 Vital Signs: BP: 93/65 (11/01/22 1430) Temp: 36.1 C (97 F) (11/01/22 143) Pulse: 98 (11/01/22 143) Resp: 18 (11/01/22 143) SpO2: 95 % (11/01/221429) O2 flow rate: 4 L/MIN (11/01/221429) Glucose (Bedside): 162 (11/01/22 1400) Time of last pain medication: 1357 Med: Dilaudid 0.2 Time of last antibiotic: n/s Med: n/a Time of last antiemetic: 1255 Med: zofran 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 Drips: no Neurological: Neuro WNL: WNL - within normal limits (11/01/22 0750) Speech: Hoarse (11/01/22 143) Level of Consciousness: Responds to voice (11/01/22 143) RUE Motor Strength: 5-Active movement with full resistance (11/01/22 1430) RLE Motor Strength: 5-Active movement with full resistance (11/01/22 1430) LUE Motor Strength: 5-Active movement with full resistance (11/01/22 1430) LLE Motor Strength: 5-Active movement with full resistance (11/01/22 1430) Coma Score: 15 (11/01/22 1430) Respiratory: Respiratory WNL: X- Exceptions to WNL (11/01/22 1430) Cough: Productive (11/01/22 1340) Depth/Rhythm: Irregular (11/01/22 1340) Dyspnea Occurance: At Rest (11/01/22 1340) Effort: Labored (11/01/22 1340) Effort Characteristics: Gasping (11/01/22 1340) Oxygen therapy/ Mechanical vent O2 flow rate: 4 L/MIN (11/01/22 1430) Supplemental O2 Delivery: Nasal Cannula (11/01/22 143) Cardiac: Observation WNL: WNL except for items charted below (11/01/22 143) Heart Sounds: S1;S2 (11/01/22 134) Rhythm: Irregular;AFib (11/01/22 134) Extremities: +Sensation;Right;Left;Upper;Lower;Gray;Warm (11/01/22 143) Pulses Right: Dorsalis Pedis +;Palpable;Radial + (11/01/22 143) Pulses Left: Dorsalis Pedis +;Palpable;Radial + (11/01/22 1430) Edema: No (11/01/22 143) Edema Location: Lower extremities;Both (11/01/22 075) Edema Assessment: +1 - Description (11/01/22 075) Capillary Refill: 3 sec (11/01/22 0820) GI: Observation WNL: WNL except for items charted below (11/01/22 1430) Abdomen: Soft;Tender;Rounded (11/01/22 143) Bowel Sounds: All Quadrants;Hypoactive (11/01/22 1430) : Observational WNL: WNL except for items charted below (11/01/22 1430) Urine Description: Blood Tinged;Cloudy (11/01/22 143) Due to Void: N/a sánchez in place Integumentary:Observation WNL: Yes (11/01/22 143) Skin Description: Dry;Warm (11/01/22 1340) Skin Color: Flesh Tone (11/01/22 1340) Skin Lesion: Other - Describe (small scab to abdomen from previous drain, COTY, scabbed) (11/01/22 0750) Environment / Interventions: Bed (11/01/22 1340) Raciel Score (auto-calculation): 21 (11/01/22 0800) Family updated on transfer: yes Additional Assessment Information: none * Storm Hernández RN - 11/01/2022 2:22 PM EST Dual Licensed Skin Assessment completed by Santi APPIAH and Lester APPIAH. The patient is/has a N/A Skin Breakdown (includes non blanchable erythema): Yes - Surgical/Procedural changes only. * Georgette Lassiter RN - 11/01/2022 8:21 AM EST Dual Licensed Skin Assessment completed by Georgette Martin RN and Berny Martin RN. The patient is/has a N/A Skin Breakdown (includes non blanchable erythema): No * Brayden Saunders RN - 11/01/2022 6:07 AM EST IP TO PERIOP HANDOFF COMMUNICATION NOTE [address] [address] Name: Nina Harrington AGE: [age] year old [place] [facility] [place] Date: 11/01/2022 Attention to: PACU Report from: Brayden Saunders RN Patient arriving via: Bed Time of Call: 6:08 AM Phone Ext.: [phone] Reason for SBAR handoff: OR Consent: Emotional/Personal Events & Special Needs: N/A Allergies: Diovan [valsartan], Enalapril, Escitalopram oxalate, Iodinated contrast media, Iodine, Metoprolol tartrate, [place] oil-black currant-vit e, Verapamil, and Wellbutrin [bupropion hcl] PMH: Past Medical History: Diagnosis Date ACEI/ARB contraindicated Asthma Carpal tunnel syndrome DM type 2, goal: symptom mgmt (HCC) Generalized osteoarthritis HTN, goal below 140/90 Mixed dyslipidemia PSH: Past Surgical History: Procedure Laterality Date APPENDECTOMY W/OTHER PROCEDURE 1960 when removed gall bladder COLONOSCOPY, DIAGNOSTIC (RECTUM) 05/29/2016 poor prep, diverticulosis/inpt [facility] COLONOSCOPY, DIAGNOSTIC (RECTUM) 06/05/2017 diverticulosis, repeat 3 yrs/[facility] COLONOSCOPY, DIAGNOSTIC (RECTUM) 02/28/2018 adenomatous polyps, diverticulosis, repeat 3 yrs / [facility] COLONOSCOPY, DIAGNOSTIC (RECTUM) 05/08/2020 inflammatory tissue on bx, diverticulosis / [facility] COLONOSCOPY, W/BIOPSY 03/20/2012 hyperplastic polyps rpt 3 years. EGD, FLEXIBLE, [facility], [facility], [facility]STIC 05/29/2016 fundic submucosal mass/[facility] EGD, FLEXIBLE, DIAGNOSTIC 05/08/2020 normal / [facility] EGD, FLEXIBLE,W/ENDOSCOPIC US 11/08/2016 inflammatory changes, stomach lesion, repeat EUS 1.5 yrs/[facility] EGD, FLEXIBLE,W/ENDOSCOPIC US 05/01/2018 stromal cell (smooth muscle) neoplasm, CBD dilation, repeat 2 yrs (needs OV prior)/[facility] EGD, FLEXIBLE,W/ENDOSCOPIC US 09/01/2020 leiomyoma / [facility] INCISIONAL HERNIA REPAIR, LAP, REDUCIBLE 09/29/2012 Repair of incarcerated supraumbilical (incisional) hernia with Atrium mesh 09/29/12 IR ASPIRATION ABSCESS/COLLECTION 07/25/2022 LIGATE/CUT OVIDUCT(S) REMOVAL OF TONSILS, AGE 12+ age 11 REMOVE GALLBLADDER 1960 SIGMOIDOSCOPY, DIAGNOSTIC 04/29/[facility], REMOVE FOREIGN BODY mesh from prior hernia surgery, wrapped around small bowel. small bowel surgery Isolation: Situation/Background Admission Date: 10/31/2022 Patient Service: Surgery Yellow Attending: Dionte Snyder MD Level of Care: Med Surg [3] Assessment Vital Signs: BP: 104/66 (11/01/22311) Temp: 36.2 C (97.2 F) (11/01/22311) Pulse: 104 (11/01/22311) Resp: 18 (11/01/22311) SpO2: 97 % (11/01/22311) O2 flow rate: 4 L/MIN (11/01/22311) Glucose (Bedside): 97 (11/01/22 0454) Lines: Peripheral Line Left Wrist 20 Gauge (Active) Status Flushes easily;Fluids infusing 11/01/22 Tubing Changed Yes 11/01/22 Phlebitis Scale 0 11/01/22 Infiltration Scale 0 11/01/22 Site Description (Other) Without redness, swelling or drainage 11/01/22 Site Intervention Flushed 11/01/22 Dressing Assessment Dressing clean, dry, and intact;Transparent dressing 11/01/22 Dressing Intervention None required 11/01/22 Number of days: 1 Restraints: No orders of the defined types were placed in this encounter. Labs: Please see Lab Flowsheet for lab values. Lab Comments: N/A Diet: Orders Placed This Encounter Procedures NPO After 2400 Except Meds NPO: Additional Diet Information: N/A Intake and Output: No intake or output data in the 24 hours ending 11/01/22 0607 Belongings Remaining with Patient: N/A What were AM meds taken with:water Time of last pain medication: 2348 Med: Soma Time of last antibiotic: 025 Med: Flagyl Time of last skin assessment: 1999 Pressure injuries or areas of concern: N/A Neurological: Neuro WNL: WNL - within normal limits (11/01/22399) Coma Score: 15 (11/01/22399) Respiratory: Respiratory WNL: X- Exceptions to WNL (10/31/221999) Cough: Non-Productive (10/31/222022) Depth/Rhythm: Regular (10/31/221999) Dyspnea Occurance: None (10/31/221999) Effort: Unlabored (10/31/221999) Oxygen therapy/ Mechanical vent O2 flow rate: 4 L/MIN (11/01/22311) Supplemental O2 Delivery: Nasal Cannula (11/01/22311) Cardiac: Observation WNL: WNL except for items charted below (10/31/221999) Extremities: +Sensation;Right;Left;Upper;Lower (10/31/221999) Pulses Right: Dorsalis Pedis +;Radial +;Palpable (10/31/221999) Pulses Left: Dorsalis Pedis +;Radial +;Palpable (10/31/221999) Edema: Yes (10/31/221999) Edema Location: Lower extremities;Both (10/31/221999) Edema Assessment: +1 - Description (10/31/221999) Capillary Refill: 3 sec (10/31/221999) GI: Observation WNL: Yes (10/31/221999) : Observational WNL: Yes (10/31/221999) Integumentary: Observation WNL: WNL except for items charted below (10/31/221999) Skin Description: Dry;Warm (10/31/221999) Skin Color: Flesh Tone;Mucus Membranes Gray;Nail beds pink (10/31/221999) Skin Lesion: Other - Describe (small scab abdomen) (10/31/221999) Environment / Interventions: Bed (10/31/221999) Raciel Score (auto-calculation): 18 (11/01/22) Additional Assessment Information: N/A * Courtney Duong RN - 10/31/2022 12:51 PM EST Dual Licensed Skin Assessment completed by Robert Duong RN and Laura Purvis RN. The patient is/has a N/A Skin Breakdown (includes non blanchable erythema): No documented in this encounter OR Notes * OR Surgeon - Dionte Snyder MD - 11/01/2022 1:56 PM EST CRS Operative Note Name: Nina Harrington : 1940 Date of Surgery: 11/01/2022 Pre-op Diagnosis: Colovesical fistula Post-op Diagnosis: same Procedure: Hand-assist laparoscopic low anterior resection, takedown of splenic flexure, bilateral laparoscopic transversus abdominus block Surgeon: Dionte Snyder MD Assistants: Chuck Virgen MD Anesthesia: General IV Fluids: 1000 ml crystalloid, 250 ml albumin Estimated Blood Loss: 75 ml Drains: 19 Fr Lonnie drain in pelvis Implants: None Specimen: 1. Sigmoid and upper rectum to pathology 2. Anastomotic rings to pathology Findings Severely diseased sigmoid colon densely adherent to left pelvic sidewall and bladder anteriorly. Complications No complications Procedure: After appropriate consent including risks, benefits and alternatives was obtained, the patient was brought to the OR, and anesthesia was then administered. Patient was placed in lithotomy position. All nakia prominences were padded, antibiotics were given, and scds placed. Prior to this procedure, u reteral stents were placed by Urology. Please see the separate operative note for details. The patient was then prepped and drapped in usual sterile fashion. A lower midline incision was made, the fascia was divided and the abdomen entered into carefully soas not to injure intra-abdominal contents. A wound retractor and gel port were then inserted. A 12mm port was placed through the gel port and the abdomen insufflated to 15mm Hg. A bilateral TAP blockwas the performed under direct visualization of the laparoscope. A right lateral and supraumbilicalincision was made with cautery and a 12mm port placed in each incision under direct vision of the laparoscope. A 5 mm port was placed in the left lower quadrant under direct visualization. The abdomen was then explored. The sigmoid colon was severely diseased and densely adhesed to the left pelvic sidewall and the bladder anteriorly. The diseased colon was taken down off the sidewall using gentle finger fracture technique along the inflammatory plane. The colon was then taken down off the bladder using the same technique. There was no obvious defect in the bladder. The dissection then took place in a medial to lateral fashion. The inferior mesenteric vessels wereretracted towards the abdominal wall and a window created in the peritoneum around these vessels. The left ureter was visualized to be away from this dissection and left in situ. A vascular load of the Winthrop stapler was used to divide the vessels. The mesentery of the colon was then mobilized off of the retroperitoneum laterally toward the abdominal wall and superiorly toward the splenic flexure. The omentum was taken off the colon using the ligasure and cautery. A full mobilization of the splenic flexure was undertaken to ensure no tension on the anastomosis. The dissection then took place inferiorly. The mesentery was elevated off of the retroperitoneal structures leading into the mesorectal plane of dissection. A region of the proximal rectum was chosenand a window created in the mesentery. The mesentery was then divided and the rectum divided using an Winthrop blue load stapler. At this point the abdomen was desufflated and the colon was brought out through the gel port. A point proximal to the diseased segment was chosen and a window created into the mesentery of the colon.The mesentery was divided with ligasure. The colon was clamped distally and an automatic purse string device used to place a purse string proximal to the clamp. The colon was then divided and the specimen handed off. The purse string was then tied down over the anvil of the 29 EEA stapler. We then placed the colon back into the abdomen and insufflated the abdomen. Using the laparoscope for visualization, the EEA stapler was inserted transanally and the spike deployed in the anterior ofthe rectal wall in an end to side manner. The anvil and stapler were mated assuring the mesentery was properly positioned and the stapler tightened and fired. Two intact donuts were retrieved from the stapler. The anastomosis was directly visualized with the flexible sigmoidoscope and air-leak tested and no bubbles were seen emanating from the anastomosis. The abdomen was once again explored, irrigated and hemostasis confirmed. The 12 mm port sites were closed under direct visualization using the Gutierrez Christelle device and 0 vicryl suture. A 19 Fr Lonnie drain was placed in the pelvis and secured to the skin with nylon suture. The omentum was draped over the anastomosis. Seprafilm was placed above the omentum. The fascia was closed with a running #1 looped PDS suture and the skin incisions closed with 4-0 monocryl suture after irrigating the wounds. Dermabond was applied as dressing and the case concluded. Counts: Instrument, sponge, and needle counts were correct prior to closure and at the conclusion of the case. Disposition: The patient was taken to PACU in good condition. * OR Surgeon - Saeed Flores MD - 11/01/2022 9:32 AM EST [facility] [address] [facility] [id number] OPERATIVE REPORT Name: Nina Harrington Date: 11/01/2022 Time: 9:32 AM Location: [facility] Date of Operation: 11/01/2022 Service: Urology Pre-op Diagnosis: Diverticulitis, colovesical fistula Post-op Diagnosis: Same Operation: - Cystoscopy - Placement of Bilateral ureteral catheter - Fluoroscopic guidance - Bilateral retrograde pyelogram - Placement of sánchez catheter Surgeon: Jarrett Alonzo Assistants: None Anesthesia: ETT Drains: Bilateral 5 Bhutanese ureteral catheter Estimated Blood Loss: Minimal IV Fluids: <1000 mL Urine Output: N/A Specimens: None Apparent Intraoperative Complications: None Patient Condition: Stable Disposition: Colorectal surgery for their portion of the case Antibiotics: Meropenem Indications: 81 year old female with history recurrent diverticulitis presenting with pneumaturia concerning fora colovesical fistula. Patient is undergoing lap possible open low anterior resection with colorectal surgery. Prophylactic ureteral catheter placement was requested by primary service. Risks, benefits and alternatives to catheter placement were dicussed with the patient who elected to proceed Findings: Normal urethra Squamous metaplasia of the trigone. No neoplastic changes of the bladder mucosa ureteral orifices in normal position. Successful placement of Bilateral ureteral catheter. Operative Report: The patient was identified and the procedure verified. After induction of anesthesia the patient was prepped and draped in the dorsal lithotomy position. A formal time out was led by the operating surgeon. A rigid cystoscope was passed per urethra to the bladder. Inspection of the bladder mucosa revealed no evidence for neoplastic changes. The ureteral orifices were of normal position and configuration. Using a 5 Fr open ended catheter, a guidewire was fed up the left ureter under fluoroscopic guidance until a curl was seen in the renal pelvis. The catheter was advanced up to the UPJ and the guidewire was removed. The same procedure was performed on the right side. We deferred retrograde joanie logram as patient has a contrast allergy. The position of the catheters on fluoroscopy is consistent with the level of kidney seen on recent CT scan. The patient's bladder was emptied. Sánchez catheter was placed with 10cc in the balloon. Ureteral catheters were secured to the Sánchez. Patient was transferred over to Colorectal surgery for their portion of the case. Dr. Flores was present and scrubbed for the entire procedure. Clinical Plan: 1. Stage ureteral catheter removal 2. If there are any concerns of ureteral injury or low urine output, please keep catheters in placeand call Urology Service Caitlin Farias MD Department of Urology 11/01/2022 9:32 AM A procedure was performed. I was present for entire procedure. I agree with the trainee note. documented in this encounter Miscellaneous Notes * Progress Notes - Non-Billable - NIECY Tubbs - 11/11/2022 9:24 AM EST PROGRESS NOTE - General Surgery Discharge Transition [facility] [place] [address] Name: Nina Harrington Location: [facility] [place] B5/A Date: 11/11/2022 Time: 9:24 AM Admitting Diagnosis: Recurrent diverticulitis, colovesical fistula PROCEDURE: Hand-assisted laparoscopic low anterior resection with primary anastomosis Estimated Discharge Date: 11/11/2022 Subjective: Nina was resting in her recliner comfortably. Tolerating diet, has tolerated denied nausea/vomiting. Incisional pain controlled with current therapy. Ambulating without any difficulty, with a walker Voiding without difficulty. (+) flatus. last BM 11/08 She will be transported home by ambulance Review of Systems: Constitutional: (-) fever chills sweats or weight loss and (+) fatigue Abdominal/GI: (-) dysphagia, (-) heartburn, (-) nausea and (-) vomiting Female : (-) dysuria Most Recent Vital Signs: BP: 101 mmHg/83 mmHg (11/11/22746) Pulse: 97 (11/11/22746) Temp: 35.78 C (11/11/22746) Resp: 20 (11/11/22746) SpO2: 95 % (11/11/22746) Constitutional: no acute distress Abdomen: soft Extremities: DUCKWORTH- used walker and assist x1 to get to BSC, voided Surgical site: wound acre completed- lower incision packed with moistened saline gauze and ABD applied The JERALD drain was removed. All sutures around JERALD drain were removed. The drain was examined and was intact, including the tip. Pressure was held over the site until hemostasis was achieved. 4x4 gauze dressings were applied. Pt tolerated the procedure well. 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 Patient verbalized understanding and agreed to call if there is any concern. * Ancillary Progress Note - Mendel Nye RN - 11/11/2022 8:09 AM EST ADULT CARE MANAGEMENT - DISCHARGE NOTE [facility] [place] [address] Name: Nina Harrington Location[place] [facility] [place] B520[place]A Date: 11/11/2022 Time: 8:09 AM The following coordination of care and discharge plan has been coordinated with the care team, patient, family and/or caregiver according to the patients needs and preferences. Discharge Discharge Second Notice Important Message from Medicare delivered: Not Applicable (discharge to IRF) (11/11/22808) Discharge Transportation: BLS (11/11/22808) Date of scheduled discharge transportation: 11/11/22 (11/11/22808) Time of scheduled discharge transportation: 1100 (11/11/22808) Patient declined post-hospital transition of care recommendation: N/A (11/11/22808) Final D/C Plan - Complete at time of D/C Final Discharge Plan (Complete only at time of Discharge): IP Rehab (11/11/22808) Destination - Admitted Since 10/31/2022 Service Provider Selected Services Address Phone Fax Patient Preferred Last Updated [facility] [address] [place] [address] [phone] -- Mendel Nye RN 11/05/2022 1351 Narrative: discharge today to above IRF at 1100 via [facility] (oxgyen need). CM confirmed bed with Nina at [facility]. Surgery patient discussed with Cynthia PEMBERTON this morning. CM called and updated daughter Kaci- agreeable with discharge plan. * Care Plan - Kayli Horne LPN - 11/11/2022 2:30 AM EST Clinical Goal(s): pt will remain free from falls during shift (11/10/221999) Possible barriers to meeting goal(s)/advancing plan of care: pt condition Stability of the patient: Moderately stable - low risk of patient condition declining or worsening Summary regarding today's goal(s): Met: pt will remain free from falls during shift Recommendations: continue with fall precautions * Communication - Sundeep Melara MD - 11/10/2022 8:58 PM EST Images from the original note were not included. Paged by RN with concern for opening of abdominal wound. Please note the picture below. Went to bedside. Pt resting comfortably with no complaints. Endorsing mild soreness of whole abdomen but feeling well overall. She did not know the wound had opened and is unsure of when that could have occurred. Per RN, she is using her abdominal muscles mainly to ambulate and turn over despite attempts to guide her using railing and other supports to offload her abdominal muscles. BP 103/70 | Pulse 90 | Temp 36 C (96.8 F) (Tympanic) | Resp 17 | Ht 1.651 m (5' 5") | Wt 95.7 kg (211 lb) | SpO2 95% | BMI 35.11 kg/m | BSA 2.09 m I swabbed the wound with a cutip, and the depth was approximately 3-4cm. Looking at CT from August, her subcutaneous tissue appears to be roughly 4 cm. I could not directly visualize the bottom of the wound, but did hit resistance. The wound was packed with a moist 4x4 gauze and covered with a stack of 4x4s, although it had no active drainage whatsoever. Pt tolerated the procedure very well andsaid she couldn't feel a thing. -Will check on again later tonight. -Will make sure day team is aware. -No changes to plan at this time, will continue to monitor closely. Sundeep Melara MD PGY-1, General Surgery * Care Plan - Yolette Velazquez RN - 11/10/2022 4:55 PM EST Clinical Goal(s): Patient will remain free from falls this shift (11/10/22699) Possible barriers to meeting goal(s)/advancing plan of care: Patient condition Stability of the patient: Moderately stable - low risk of patient condition declining or worsening Summary regarding today's goal(s): Met: Patient remained free from falls this shift Recommendations: Continue to implement appropriate fall precautions and hourly safety rounding * Ancillary Progress Note - MONTY Whitley - 11/10/2022 9:04 AM EST CARE MANAGEMENT - ADULT TRANSITION NOTE [facility] [place] [address] Name: Nina Harrington Location: [address] Date: 11/10/2022 Time: 9:04 AM Prescription Coverage: Yes (11/02/22799) Risk Stratification Risk Stratification Psycho Social/Care Gaps concerns identified upon admission:: Adjustment to illness/injury () OBRA or OPTIONS needed for placement: No (11/02/22799) Readmission Risk Score: 30.82 (11/10/22799) AM-PAC Score With Stairs : 17 (11/10/22799) Caregiver Information Patient Contacts Name Relation Home Work Mobile Stephani Horta Adult Child [phone] Taylor Adams Adult Child [phone] Kaci Moreno [phone] Transition of Care Checklist Transition of Care Checklist (aka Readmission Risk Score) Readmission Risk Score: 30.82 (11/10/22 0800) Narrative: ADA coordinated with Dr. Lafleur, patient not medically stable today, ok to arrange for tenative dc on 11/11. SW left VM with Saida in admissions at [facility] regarding the above. BLS ride rearranged for pickup on 11/11 @ 11AM. Awaiting claimed ride at this time. DC paperwork placed at BP5CM desk. Anticipated Transportation at Discharge: [facility] Patient/Family Expectations: [facility] Transition Planning Transition Planning Transition Plan/Considerations: Needs uncertain at this time - Continue monitoring for needs;Discussed at Interdisciplinary Team / Boost Rounds (11/02/22 08) Additional Considerations: NA Care Management will continue to monitor and assist with discharge planning needs * Care Plan - Kayli Horne LPN - 11/10/2022 2:34 AM EST Clinical Goal(s): pt will remain free from falls during shift (11/09/22 2100) Possible barriers to meeting goal(s)/advancing plan of care: pt condition Stability of the patient: Moderately stable - low risk of patient condition declining or worsening Summary regarding today's goal(s): Met: pt was free from falls during shift Recommendations: continue with fall precautions * Care Plan - Barby Sands RN - 11/09/2022 6:13 PM EST Clinical Goal(s): Patient remained free from falls and injuries this shift (11/09/22 0800) Possible barriers to meeting goal(s)/advancing plan of care: Patient condition Stability of the patient: Moderately stable - low risk of patient condition declining or worsening Summary regarding today's goal(s): Met: Patient remained free from falls and injuries Recommendations: Continue with current patient plan of care and fall precautions * Ancillary Progress Note - MONTY Whitley - 11/09/2022 9:42 AM EST CARE MANAGEMENT - ADULT TRANSITION NOTE [address] [address] Name: Nina Harrington [place] [facility] [place] [facility] Date: 11/09/2022 Time: 9:42 AM Prescription Coverage: Yes (11/02/22799) Risk Stratification Risk Stratification Psycho Social/Care Gaps concerns identified upon admission:: Adjustment to illness/injury () OBRA or OPTIONS needed for placement: No (11/02/22799) Readmission Risk Score: 28.57 (11/09/22799) AM-PAC Score With Stairs : 17 (11/09/22927) Caregiver Information Patient Contacts Name Relation Home Work Mobile Stephani Horta Adult Child [phone] BryanTaylor franks Adult Child [phone] Kaci Moreno [phone] Transition of Care Checklist Transition of Care Checklist (aka Readmission Risk Score) Readmission Risk Score: 28.57 (11/09/22799) Narrative: ADA spoke with Saida in admissions at [facility] @ [phone], patient will have a bed on 11/10. ADA spoke with kaite Morin for mo. S ride escalated to GPS, ride remains unclaimedat this time. Anticipated Transportation at Discharge: S Patient/Family Expectations: rehab Transition Planning Transition Planning Transition Plan/Considerations: Needs uncertain at this time - Continue monitoring for needs;Discussed at Interdisciplinary Team / Boost Rounds (11/02/22799) Additional Considerations: NA Care Management will continue to monitor and assist with discharge planning needs * Progress Notes - Post-Op Global - Estrada French MD - 11/09/2022 5:28 AM EST PROGRESS NOTE - Colorectal Surgery [address] [address] Name: Nina Harrington [place] [facility] [place] [facility] Date: 11/09/2022 Time: 8:06 AM DIAGNOSIS: Recurrent diverticulitis, colovesical fistula PROCEDURE: Hand-assisted laparoscopic low anterior resection with primary anastomosis DATE OF SURGERY: 11/01/2022 POST OP DAY: 8 SUBJECTIVE: NAEON, VSS, afebrile. On 2LNC overnight. On O2 at home. This AM, doing well. Does note she is having some urinary incontinence. Last Bowel Movement: 11/08/22 OBJECTIVE: Most Recent Vital Signs: BP: 116 mmHg/84 mmHg (11/09/22713) Pulse: 105 (11/09/22713) Temp: 36.22 C (11/09/22713) Resp: 20 (11/09/22713) SpO2: 95 % (11/09/22729) Vital Signs Last 24 Hours: Systolic BP: Most Recent Systolic BP Av.8 mmHg Min: 103 mmHg Max: 116 mmHg Temperature: Most Recent Temperature Av.3 C Min: 35.78 C Max: 36.89 C Pulse: Pulse Av Min: 74 Max: 105 Respirations: Resp Av.3 Min: 16 Max: 20 SpO2: SpO2 Av % Min: 65 % Max: 100 % In / Out Past 24 Hrs: Intake/Output Summary (Last 24 hours) at 11/09/2022 0806 Last data filed at 11/09/2022 0735 Gross per 24 hour Intake 780 ml Output 1360 ml Net -580 ml Physical Exam: Constitutional: no acute distress Head/Neck: normal: normocephalic, atraumatic; no masses, tenderness, or adenopathy Eyes: sclera and conjunctiva normal Neck: supple, trachea midline CV: normal rate and rhythm Chest: normal respiratory effort, chest wall normal Abdomen: soft, nondistended, nontender, incisions dressed with dermabond c/d/i, LLQ JERALD in place draining SS fluid Musculoskeletal: (-) negative Extremities: no clubbing or cyanosis, minimal BLE pitting edema Skin: warm, dry Neuro: alert, GCS 15 LABS: Labs reviewed as indicated below: Recent Results (from the past 12 hour(s)) GLUCOSE METER, POINT OF CARE Collection Time: 11/08/22 10:35 PM Result Value Ref Range Glucose Meter 191 (H) 70 - 120 mg/dL CBC Collection Time: 11/09/22 4:05 AM Result Value Ref Range WBC 14.28 (H) 4.00 - 10.80 K/uL RBC 3.37 3.85 - 5.15 M/uL HGB 9.3 (L) 12.0 - 15.3 g/dL HCT 31.6 (L) 36.0 - 45.2 % MCV 93.8 81.5 - 97.5 fL MCH 27.6 27.0 - 34.0 pg MCHC 29.4 32.0 - 36.0 g/dL RDW 14.6 11.5 - 15.5 % PLT 515 (H) 140 - 400 K/uL MPV 9.2 6.6 - 11.1 fL nRBCs 0 <=0 /100 WBCs BASIC METABOLIC PANEL Collection Time: 11/09/22 4:05 AM Result Value Ref Range BUN 21 (H) 6 - 20 mg/dL Creatinine 0.9 0.5 - 1.0 mg/dL Estimated Glomerular Filtration Rate 67 >=60 mL/min Sodium 132 (L) 135 - 146 mmol/L Potassium 4.1 3.5 - 5.1 mmol/L Chloride 94 (L) 98 - 107 mmol/L CO2 30 22 - 32 mmol/L Anion Gap 8 7 - 15 mmol/L Glucose 176 (H) 70 - 120 mg/dL Calcium 9.1 8.4 - 10.2 mg/dL GLUCOSE METER, POINT OF CARE Collection Time: 11/09/22 7:13 AM Result Value Ref Range Glucose Meter 178 (H) 70 - 120 mg/dL IMAGING: FLUORO CYSTOGRAM Result Date: 11/08/2022 IMPRESSION Minimal residual irregularity of the bladder dome with no evidence of bladder leak. IMPRESSION: Principal Problem: Diverticulitis of colon Active Problems: Asthma with severity to be determined HTN, goal below 140/90 Type 2 diabetes mellitus with hemoglobin A1c goal of less than 7.5% ([facility]) HECTOR (generalized anxiety disorder) COPD, group B, 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 ([facility]) Morbid obesity with BMI of 40.0-44.9, adult ([facility]) Paroxysmal atrial fibrillation (HCC) Chronic systolic heart failure (HCC) Chronic kidney disease, stage 3a ([facility]) Resolved Problems: * No resolved hospital problems. * 81 year old female PMH as above now s/p LAR for recurrent diverticulitis with c/f colovesical fistula. PLAN: IVF: off DVT/PE ppx: LMWH Analgesia: tylenol ATC, tramadol ATC, oxy 5/10 prn Diet: low fiber diet GI ppx: Proton Pump Inhibitor, carafate, house antacid Nausea: zofran and compazine Sánchez: removed 11/08 Labs: AM CBC, BMP Drains/Lines: PIV [place]/Sutures: none Activity: OOB ad elia Respiratory: RPDP Home Medications: restart SOLAR POOL HEATING INSTALLER metoprolol, lipitor, combivent, zoloft, albuterol, omeprazole, lasix.Interchange incruse ellipta for SOLAR POOL HEATING INSTALLER spiriva and SSI for SOLAR POOL HEATING INSTALLER glimepiride per protocol. Resume SOLAR POOL HEATING INSTALLER spironolactone, bASA. Holding vitamins, SOLAR POOL HEATING INSTALLER abx, phenergan, bentyl, probiotic, vicodin, eye drops. Consults Requested: none new Dispo: med surg -discharge to SNF 11/10 Patient was examined and was discussed with Dr. Manolo Mccallum MD General Surgery Resident - PGY 4 Attending Attestation: I have discussed the patient's management with the medical trainee and agree with the note. Please refer to the documented findings and plan of care. The patient's bedside service today consisted of an evaluation. I was present and confirmed the findings of the history and exam. Diet DC planning * Care Plan - Alma Rosa Loya RN - 11/09/2022 5:18 AM EST Clinical Goal(s): Pt will remain free from injury/falls this shift (11/08/22 2300) Possible barriers to meeting goal(s)/advancing plan of care: pt condition Stability of the patient: Moderately stable - low risk of patient condition declining or worsening Summary regarding today's goal(s): Met: pt remained free from injury/falls this shift Recommendations: Frequent safety assessments with hourly rounds; continue all fall precautions * Care Plan - Yolette Velazquez RN - 11/08/2022 5:03 PM EST Clinical Goal(s): Patient will remain free from falls this shift (11/08/22 0700) Possible barriers to meeting goal(s)/advancing plan of care: Patient condition Stability of the patient: Moderately stable - low risk of patient condition declining or worsening Summary regarding today's goal(s): Met: Patient remained free from falls this shift Recommendations: Continue to implement appropriate fall precautions and hourly safety rounding * Ancillary Progress Note - Maggie Contreras RDN - 11/08/2022 12:35 PM EST CLINICAL NUTRITION ADULT RISK ASSESSMENT [facility] [place] [address] Name: Nnia Harrington Location: [facility] [place] [facility] Date: 11/08/2022 Time: 12:58 PM How patient was identified (select 2): date and Name Nina Harrington is a 81 year old female being assessed for clinical nutrition risk related to follow-up Primary diagnosis: Admitted for colovesical fistula and diverticulitis 11/01/2022 - Hand-assist laparoscopic low anterior resection, takedown of splenic flexure, bilaterallaparoscopic transversus abdominus block Other pertinent information: Pt voices her appetite has not been good. She voices that solid foods tend to make her nauseated. She also voices that pain causes nausea as well. 5-25% of meals consumedusually. She states she has not thrown up for a few days now. She notes that she has had some smallbowel movements, but has not had one for a couple of days. No chewing or swallowing difficulties noted at this time. Will place order for weight to follow weight trends during admission. She does voice that she likes the food, though it just makes her nauseated. She does drink Glucerna prior to admission and is open to having Boost Glucose Control during admission. Will monitor intakes and toleran ce to diet. Anthropometrics Measurements Admission weight (for dietitians): 96.6 kg Height: 165.1 cm (5' 5") (10/31/22 1238) Weight: 96.6 kg (213 lb) (10/31/22 1238) BMI: 35.44 (10/31/22 1238) Usual Body Weight or EDW for Dialysis Patients: 111-115 lb 1 year ago; ~96 lbs for the past 3 months. Diet: 4 Choices (60 gm) Consistent Carbohydrate Fiber Restricted Previously followed diet: Regular Food Allergies/Intolerances: No known food allergies Oral Nutrition Supplement (ONS): None Pertinent medications/vitamins/minerals/supplements: Furosemide, novolog, omeprazole, spironolactone RISK FACTORS: Adult Energy Intake: Less than 75% of estimated energy requirement for greater than 7 days (moderate, acute illness). Interpretation of Weight Change: No recent/significant weight change Skin: Compromise without nutrition-related implications - abdominal surgical wound NUTRITION RISK CATEGORY: Nutrition Risk Category: Low/Moderate (0-1 factors) Clinical Nutrition Recommendations: Diet: Continue current nutrition plan NUTRITION INTERVENTION/PLAN: Orders: Oral nutrition supplement added Boost Glucose Control (1 cup provides 190 calories, 16 grams protein, 16 grams carbohydrate, 30 mcg vitamin K) BID Weight Will follow and adjust nutritional plan as medical condition requires. Please contact for change(s)in patient condition requiring earlier intervention. Maggie Contreras RDN, LDN Clinical Dietitian Extension: [phone] [employer] * Ancillary Progress Note - Mendel Nye RN - 11/08/2022 9:01 AM EST CARE MANAGEMENT - ADULT TRANSITION NOTE [facility] [place] [address] Name: Nina Harrington Location: [facility] [place] [facility] Date: 11/08/2022 Time: 9:02 AM Prescription Coverage: Yes (11/02/22799) Risk Stratification Risk Stratification Psycho Social/Care Gaps concerns identified upon admission:: Adjustment to illness/injury () OBRA or OPTIONS needed for placement: No (11/02/22799) Readmission Risk Score: 25.88 (11/08/22 0801) AM-PAC Score With Stairs : 17 (01/27/23 0800) Caregiver Information Patient Contacts Name Relation Home Work Mobile Stephani Horta Adult Child [phone] Taylor Adams Adult Child [phone] Kaci Moreno [phone] Transition of Care Checklist Transition of Care Checklist (aka Readmission Risk Score) Readmission Risk Score: 25.88 (11/08/22 0801) Narrative: Pt discussed in IDT Rounds today. Surgery patient discussed with Cynthia PEMBERTON this morning. Cysto pending this morning for stent and Sánhcez removal. Accepted by Sourav MARQUEZ for today. BLS ride requested in RT for 1400- claim pending. CM escalated to GPS RT Specialist this morning. CM called and left VM for Sourav Jacome Liaison at [phone], to confirm. CM received return message from Ayaz confirming admission today. CM to update with transportation time when claimed. UPDATES: CM received notice from Ayaz at [facility] that facility unable to accept/admit today d/t isolation bed needs. Looking at possibly accepting on Friday11/10/2022- confirmation pending. CM changed BLS request time in RT to 11/10/2022 at 1100- claim pending. Weekend CM to contact facility on Friday to confirm bed availability. CM updated Nina at bedside and left VM for daughter Kaci at number above. CM messaged Cynthia PEMBERTON to update. Please contact CM with any further concerns. Anticipated Transportation at Discharge: BLS Patient/Family Expectations: IRF Transition Planning Transition Planning Transition Plan/Considerations: Needs uncertain at this time - Continue monitoring for needs;Discussed at Interdisciplinary Team / Boost Rounds (11/02/22 0800) Additional Considerations: none Care Management will continue to monitor and assist with discharge planning needs * Progress Notes - Post-Op Global - Jaylon Ferraro Jr., MD - 11/08/2022 7:01 AM EST PROGRESS NOTE - Colorectal Surgery [facility] [place] [address] Name: Nina Harrington Location: [place] [address]/A Date: 11/08/2022 Time: 7:01 AM DIAGNOSIS: Recurrent diverticulitis, colovesical fistula PROCEDURE: Hand-assisted laparoscopic low anterior resection with primary anastomosis DATE OF SURGERY: 11/01/2022 POST OP DAY: 7 SUBJECTIVE: AFVSS, NAEON. On NC4L overnight, which is her baseline night home oxygen for COPD. Having bowel function and tolerating diet. Continues to complain of some nausea. Last Bowel Movement: 11/06/22 OBJECTIVE: Most Recent Vital Signs: BP: 113 mmHg/66 mmHg (11/08/22222) Pulse: 104 (11/08/22222) Temp: 36.89 C (11/08/22222) Resp: 18 (11/08/22222) SpO2: 95 % (11/08/22222) Vital Signs Last 24 Hours: Systolic BP: Most Recent Systolic BP Av.5 mmHg Min: 98 mmHg Max: 117 mmHg Temperature: Most Recent Temperature Av.1 C Min: 35.5 C Max: 36.89 C Pulse: Pulse Av.3 Min: 100 Max: 108 Respirations: Resp Av.3 Min: 16 Max: 18 SpO2: SpO2 Av.7 % Min: 93 % Max: 99 % In / Out Past 24 Hrs: Intake/Output Summary (Last 24 hours) at 11/08/2022 0701 Last data filed at 11/08/2022 0532 Gross per 24 hour Intake 680 ml Output 2163 ml Net -1483 ml Physical Exam: Constitutional: no acute distress Head/Neck: normal: normocephalic, atraumatic; no masses, tenderness, or adenopathy Eyes: sclera and conjunctiva normal Neck: supple, trachea midline CV: normal rate and rhythm Chest: normal respiratory effort, chest wall normal Abdomen: soft, nondistended, nontender, incisions dressed with dermabond c/d/i, LLQ JERALD in place draining SS fluid Musculoskeletal: (-) negative Extremities: no clubbing or cyanosis, minimal BLE pitting edema Skin: warm, dry Neuro: alert, GCS 15 LABS: Labs reviewed as indicated below: Recent Results (from the past 12 hour(s)) GLUCOSE METER, POINT OF CARE Collection Time: 11/07/22 9:27 PM Result Value Ref Range Glucose Meter 131 (H) 70 - 120 mg/dL CBC Collection Time: 11/08/22 5:02 AM Result Value Ref Range WBC 12.33 (H) 4.00 - 10.80 K/uL RBC 3.66 3.85 - 5.15 M/uL HGB 10.4 (L) 12.0 - 15.3 g/dL HCT 33.0 (L) 36.0 - 45.2 % MCV 90.2 81.5 - 97.5 fL MCH 28.4 27.0 - 34.0 pg MCHC 31.5 32.0 - 36.0 g/dL RDW 14.6 11.5 - 15.5 % PLT 522 (H) 140 - 400 K/uL MPV 9.3 6.6 - 11.1 fL nRBCs 0 <=0 /100 WBCs BASIC METABOLIC PANEL Collection Time: 11/08/22 5:02 AM Result Value Ref Range BUN 18 6 - 20 mg/dL Creatinine 0.8 0.5 - 1.0 mg/dL Estimated Glomerular Filtration Rate 76 >=60 mL/min Sodium 135 135 - 146 mmol/L Potassium 4.5 3.5 - 5.1 mmol/L Chloride 97 (L) 98 - 107 mmol/L CO2 30 22 - 32 mmol/L Anion Gap 8 7 - 15 mmol/L Glucose 171 (H) 70 - 120 mg/dL Calcium 9.0 8.4 - 10.2 mg/dL IMAGING: No imaging results in the last 24 hours IMPRESSION: Principal Problem: Diverticulitis of colon Active Problems: Asthma with severity to be determined HTN, goal below 140/90 Type 2 diabetes mellitus with hemoglobin A1c goal of less than 7.5% ([facility]) HECTOR (generalized anxiety disorder) COPD, group B, 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 ([facility]) Morbid obesity with BMI of 40.0-44.9, adult (HCC) Paroxysmal atrial fibrillation (HCC) Chronic systolic heart failure (HCC) Chronic kidney disease, stage 3a ([facility]) Resolved Problems: * No resolved hospital problems. * 81 year old female PMH as above now s/p LAR for recurrent diverticulitis with c/f colovesical fistula. PLAN: IVF: off DVT/PE ppx: LMWH Analgesia: tylenol ATC, tramadol ATC, oxy 5/10 prn Diet: low fiber diet GI ppx: Proton Pump Inhibitor, carafate, house antacid Nausea: zofran and compazine Sánchez: Will remove today pending cystogram results Labs: AM CBC, BMP Drains/Lines: PIV [place]/Sutures: none Activity: OOB ad elia Respiratory: RPDP Home Medications: restart SOLAR POOL HEATING INSTALLER metoprolol, lipitor, combivent, zoloft, albuterol, omeprazole, lasix.Interchange incruse ellipta for SOLAR POOL HEATING INSTALLER spiriva and SSI for SOLAR POOL HEATING INSTALLER glimepiride per protocol. Resume SOLAR POOL HEATING INSTALLER spironolactone, bASA. Holding vitamins, SOLAR POOL HEATING INSTALLER abx, phenergan, bentyl, probiotic, vicodin, eye drops. Consults Requested: none new Dispo: med surg - OOB, cystogram this AM, discharge to SNF today Patient was examined and will be discussed with Dr. Claudio Ferraro Jr, MD PGY-3, Department of General Surgery 11/08/2022 7:03 AM Associated attestation - Dionte Snyder MD - 11/08/2022 5:02 PM EST I saw and evaluated the patient today. I have reviewed the trainee note and agree. * Care Plan - Alize Velasquez RN - 11/08/2022 4:21 AM EST Problem: Pain & Impaired Comfort Goal: Patient's pain & discomfort is manageable. Outcome: Progressing Clinical Goal(s): pain will be tolerable through shift (11/08/22 0400) Possible barriers to meeting goal(s)/advancing plan of care: pain medication ineffective Stability of the patient: Moderately stable - low risk of patient condition declining or worsening Summary regarding today's goal(s): Met: Pain decreased to a tolerable level for patient after scheduled, PRN, and breakthrough medication given. Pt able to rest over night. Abd remains soft with hypo bowel sounds. Occasional complaints of nausea with no vomiting. Recommendations: Continue to assess pain number and need for pain medication. Encourage repositioning in bed and OOB when awake. * Care Plan - Mariana Roth LPN - 11/07/2022 3:26 PM EST Clinical Goal(s): Patient will remain free of falls this shift. (11/07/22799) Possible barriers to meeting goal(s)/advancing plan of care: Patient condition. Stability of the patient: Moderately stable - low risk of patient condition declining or worsening Summary regarding today's goal(s): Met: . Recommendations: Maintain adequate fall precautions. * Ancillary Progress Note - Mendel Nye RN - 11/07/2022 10:18 AM EST CARE MANAGEMENT - ADULT TRANSITION NOTE [facility] [place] [address] Name: Nina Harrington Location: [place] [address]/A Date: 11/07/2022 Time: 10:18 AM Prescription Coverage: Yes (11/02/22799) Risk Stratification Risk Stratification Psycho Social/Care Gaps concerns identified upon admission:: Adjustment to illness/injury () OBRA or OPTIONS needed for placement: No (11/02/22799) Readmission Risk Score: 27.86 (11/07/22799) AM-PAC Score With Stairs : 17 (11/07/22831) Caregiver Information Patient Contacts Name Relation Home Work Mobile Stephani Horta Adult Child [phone] Taylor Adams Adult Child [phone] Kaci Josh [phone] Transition of Care Checklist Transition of Care Checklist (aka Readmission Risk Score) Readmission Risk Score: 27.86 (11/07/22799) Narrative: Pt discussed in IDT Rounds today. Surgery patient discussed with Cynthia PEMBERTON this morning. Cystogram postponed from today to tomorrow at 1030. Accepted by [facility] for Friday11/08/2022. PT OT updates provided this morning. S transport originally requested for 1000 pickup- request changed to 1400. Ride claim pending. CM spoke with daughter Kaci via phone and updated on discharge planning Please contact CM with any further concerns. Anticipated Transportation at Discharge: BLS requested for 11/08 (oxygen need) Patient/Family Expectations: Acute Rehab Transition Planning Transition Planning Transition Plan/Considerations: Needs uncertain at this time - Continue monitoring for needs;Discussed at Interdisciplinary Team / Boost Rounds (11/02/22 0800) Additional Considerations: none Care Management will continue to monitor and assist with discharge planning needs * Ancillary Progress Note - JENNIFER Barry - 11/07/2022 10:13 AM EST PROGRESS NOTE - Occupational Therapy [facility] [place] [address] Name: Nina Harrington Location: [facility] [place] [facility] Date: 11/07/2022 Time: 10:13 AM Nina Harrington is a 81 year old female. Patient Status: Inpatient Insurance: Payor: MEDICARE Plan: MEDICARE A AND B Product Type: *No Product type* Payor: [employer] [place] Plan: [employer] [facility] Product Type: HMO Patient Seen: at bedside, nursing cleared patient for therapy Patient Identified By: Name, ID Band and Date Diagnosis: colocutaneous fistula, diverticulitis (11/07/22 1010) Status of treatment: Treatment completed (11/07/22 101) Orders: OT evaluation and treatment;OT OOB (11/07/22 101) Weight Bearing Status: Weight bearing as tolerated (11/07/22 1010) Precautions: Alarms;Falls;Safety (11/07/22 1010) Total Treatment Time: (11/07/22 1010) Pain: Patient has complaints of pain. Pain located abdomen and back . Current Functional Status: Activities of Daily Living: Self Care Grooming: Supervision (Please comment) (11/07/22 1010) Dressing Upper Body: Supervision (Please comment) (11/07/22 1010) Lower Body: Maximal Assistance (don slipper socks; Supervision doff slipper socks) (11/07/22 1010) Bathing Upper Body: Supervision (Please comment) (11/07/221009) Functional Ambulation Assistive Device: Rolling walker (11/07/221009) Distance in feet:: 3 (11/07/221009) Level of Assistance: Contact Guard (11/07/221009) OT Transfers Sit-Stand: Supervision (Please comment) (11/07/221009) Stand-Sit: Supervision (Please comment) (11/07/221009) Bed-Chair: Contact Guard (11/07/221009) Balance Sit (Static): Fair (11/07/221009) Sit (Dynamic): Fair (11/07/221009) Stand (Static): Fair (11/07/221009) Stand (Dynamic): (Fair-) (11/07/221009) Alarm Status Patient positioned in: Chair (11/07/221009) With: Pressure pad alarm intact and functioning and call harrison in reach (11/07/221009) Following session patient seated OOB in chair with chair alarm activated and cord plugged into callbell system. Following session patient seated OOB in chair with chair alarm activated. Patient's nurse was made aware. Treatment Provided: Self Fpc Management Trainin minutes Therapeutic Activity: 8 minutes Deficits requiring O.T. treatment needs: ADL/self- care;Balance;Endurance;Functional mobility;Safety;Upper extremity strength;Upper extremity range of motion;Weakness (11/03/22813) Assessment: Seated in recliner upon entering room. Patient demonstrates grooming and upper body bathing and dressing supervision level set up. Patient able to doff slipper socks supervision level with increased time. Patient required assistance with donning slipper socks secondary to abdominal pain. Patient demonstrates functional transfers and ambulation supervision level to contact guard assistance using rolling walker. Please consider post-acute care services which may include home health, penitentiary, outpatient therapy or inpatient rehabilitation. The level of care will be determinedin collaboration with patient, family/caregiver and care team members. Plan: Will continue to follow as per plan. Anticipated Frequency (on eval): 1 to 3 times per week (11/07/221009) AM-PAC Help From Another Person Eating Meals: None (11/07/221009) Help From Another Person Taking Care of Personal Grooming: A little (01/26/23 1010) Help From Another Person To Put On/Take Off Upper Body Clothing: A little (11/07/221009) Help From Another Person To Put On/Take Off Lower Body Clothing: A lot (11/07/221009) Help From Another Person Toileting: A lot (11/07/221009) Help From Another Person Bathing: A lot (11/07/221009) OT AM-PAC Score: 16 (11/07/221009) OT AM-PAC t-Scale Score: 35.96 (11/07/221009) A portion of this AM-PAC assessment not scored based on functional assessment; rather clinical decision making utilized based on current findings and/or prior level of function. Please refer to future AM-PAC calculations of functional ability as they become available. * Ancillary Progress Note - Lexi Solo PTA - 11/07/2022 8:34 AM EST PROGRESS NOTE - Physical Therapy [facility] [place] [address] Name: Nina Harrington Location[place] [facility] [place] [facility] Date: 11/07/2022 Time: 8:35 AM Nina Harrington is a/an 81 year old female. Patient Status: Inpatient Insurance: Payor: MEDICARE Plan: MEDICARE A AND B Product Type: *No Product type* Payor: [employer] [place] Plan: [employer] [facility] Product Type: HMO Patient Identified By: Name, ID Band and Date Diagnosis: colocutaneous fistula, diverticulitis (11/07/22831) Status of treatment: Treatment completed (11/07/22831) Orders: PT evaluation and treatment (11/07/22831) Weight Bearing Status: Weight bearing as tolerated (11/07/22831) Precautions: Alarms;Falls;Safety;Isolation;Sánchez;Oxygen (11/07/22831) Total Treatment Time--free text: 12 (11/07/22831) Treatment Provided: Therapeutic Activities 12 minutes: bed mobility training transfer training short distance ambulation, exercises Pain: No complaints of pain P.T. Bed Mobility Supine-Sit: Minimal Assistance (11/07/22831) Transfers Sit-Stand: Minimal Assistance (1st transfer, contact guard 2nd transfer) (11/07/22831) Stand-Sit: Contact Guard (for 2 transfers) (11/07/22831) Ambulation: Distance ambulated (feet): 12' Assistive Device: Rolling walker Assist: Contact Guard Balance Sit (Static): Fair (11/07/22831) Sit (Dynamic): Fair (11/07/22831) Stand (Static): (fair -) (11/07/22831) Stand (Dynamic): (fair -) (11/07/22831) Extremity Exercise Sitting: Hip;Knee (11/07/22831) Hip : Bilateral LE;Flexion;2 sets of 10 (11/07/22831) Knee : Bilateral LE;Extension;2 sets of 10 (11/07/22831) Topic of Education: Safety with mobility, Goals/plan of care, Use of assistive device and Fall prevention Method of Education: Verbal discussion and explanation provided to pt: Alarm Status Patient positioned in: Chair (11/07/22831) With: Pressure pad alarm intact and functioning and call harrison in reach (11/07/22831) Patient Education Review of Precautions: Safety;Fall (11/07/22831) Safety Awareness: Patient verbalizes insight of current deficits;Patient demonstrates carryover of insight during functional tasks;Patient can communicate basic needs;Needs cueing supervision (11/07/22831) Assessment: Pt required minimal assist for supine to sit. Once seated edge of bed she was able to support herself with supervision. She required minimal assist for the 1st stand and contact guard assist for the 2nd stand with cues for proper hand placement. She ambulated 12' using a rolling walker requiring contact guard assistance. Pt presents with a slow gait speed. Pt reported LE instability. Seated exercises were done to increase LE strength. Pt reported nausea throughout mobility, which appeared to limit mobility. RN aware. Please consider post-acute care services which may include home health, penitentiary, outpatient therapy or inpatient rehabilitation. The level of care will be determined in collaboration with patient, family/caregiver and care team members. Deficits requiring P.T. treatment needs: Weakness;Endurance (11/07/22831) Equipment needs: Rolling walker (11/07/22831) Plan: Continue with current treatment plan established on evaluation. AM PAC Score with Stairs: 17 A portion of this AM-PAC assessment not scored based on functional assessment; rather clinical decision making utilized based on current findings and/or prior level of function. Please refer to future AM-PAC calculations of functional ability as they become available. * Care Plan - Mariana Roth LPN - 11/06/2022 6:22 PM EST Clinical Goal(s): Patient will remain free from falls this shift (11/06/22699) Possible barriers to meeting goal(s)/advancing plan of care: Patient condition. Stability of the patient: Moderately stable - low risk of patient condition declining or worsening Summary regarding today's goal(s): Met: Patient remained free of falls during this shift. Recommendations: Continue appropriate fall precautions and hourly rounding. * Ancillary Progress Note - Mendel Nye RN - 11/06/2022 10:05 AM EST CARE MANAGEMENT - ADULT TRANSITION NOTE [facility] [place] [address] Name: Nina Harrington Location: [facility] [place] [facility] Date: 11/06/2022 Time: 10:05 AM Prescription Coverage: Yes (11/02/22799) Risk Stratification Risk Stratification Psycho Social/Care Gaps concerns identified upon admission:: Adjustment to illness/injury () OBRA or OPTIONS needed for placement: No (11/02/22799) Readmission Risk Score: 29.61 (11/06/22799) AM-PAC Score With Stairs : 17 (11/06/22799) Caregiver Information Patient Contacts Name Relation Home Work Mobile Stephani Horta Adult Child [phone] Taylor Adams Adult Child [phone] Kaci Moreno [phone] Transition of Care Checklist Transition of Care Checklist (aka Readmission Risk Score) Readmission Risk Score: 29.61 (11/06/22 0800) Narrative: Pt discussed in IDT Rounds today. Surgery patient discussed with Cynthia PEMBERTON this morning. Cysto planned for 11/07 for Sánchez and stent removal. Anticipated medically ready afterwards for discharge to rehab. [facility] accepted. Family requesting CM assistance in arranging transport. CM updated Liliana with [facility]- checking on discharges and when pt could be accepted on Friday. CM to arrrange BLS ride via RT- oxygen need. Will need PT OT updates on 11/07/2022 CM submitted BLS request in RT for 11/08/22 at 1000. CM to update Ayaz with [facility] at [phone] (Liliana off /Fri) Please contact CM with any further concerns. Anticipated Transportation at Discharge: BLS Patient/Family Expectations: [facility]. Transition Planning Transition Planning Transition Plan/Considerations: Needs uncertain at this time - Continue monitoring for needs;Discussed at Interdisciplinary Team / Boost Rounds (11/02/22 0800) Additional Considerations: none Care Management will continue to monitor and assist with discharge planning needs * Progress Notes - Post-Op Global - Jaylon Ferraro Jr., MD - 11/06/2022 7:45 AM EST PROGRESS NOTE - Colorectal Surgery [facility] [place] [address] Name: Nina Harrington Location: [facility] [place] [facility] Date: 11/06/2022 Time: 7:45 AM DIAGNOSIS: Recurrent diverticulitis, colovesical fistula PROCEDURE: Hand-assisted laparoscopic low anterior resection with primary anastomosis DATE OF SURGERY: 11/01/2022 POST OP DAY: 4 SUBJECTIVE: AFVSS, NAEON. On NC4L overnight, which is her baseline night home oxygen for COPD. (+)flatus (+)BM.Still complaining of some reflux, but much improved since yesterday. Encouraged to continue gettingOOB as much as possible. Last Bowel Movement: 11/06/22 OBJECTIVE: Most Recent Vital Signs: BP: 121 mmHg/64 mmHg (11/06/22356) Pulse: 108 (11/06/22346) Temp: 36.5 C (11/06/22346) Resp: 18 (11/06/22346) SpO2: 98 % (11/06/22356) Vital Signs Last 24 Hours: Systolic BP: Most Recent Systolic BP Av.1 mmHg Min: 91 mmHg Max: 121 mmHg Temperature: Most Recent Temperature Av.1 C Min: 35.89 C Max: 36.5 C Pulse: Pulse Av.7 Min: 68 Max: 108 Respirations: Resp Av.6 Min: 17 Max: 18 SpO2: SpO2 Av.8 % Min: 98 % Max: 100 % In / Out Past 24 Hrs: Intake/Output Summary (Last 24 hours) at 11/06/2022 0745 Last data filed at 11/06/2022 0400 Gross per 24 hour Intake 240 ml Output 945 ml Net -705 ml Physical Exam: Constitutional: no acute distress Head/Neck: normal: normocephalic, atraumatic; no masses, tenderness, or adenopathy Eyes: sclera and conjunctiva normal Neck: supple, trachea midline CV: normal rate and rhythm Chest: normal respiratory effort, chest wall normal Abdomen: soft, nondistended, aTTP, incisions dressed with dermabond c/d/i, LLQ JERALD in place drainingSS fluid Musculoskeletal: (-) negative Extremities: no clubbing or cyanosis, minimal BLE pitting edema Skin: warm, dry Neuro: alert, GCS 15 LABS: Labs reviewed as indicated below: Recent Results (from the past 12 hour(s)) GLUCOSE METER, POINT OF CARE Collection Time: 11/05/22 8:28 PM Result Value Ref Range Glucose Meter 136 (H) 70 - 120 mg/dL CBC Collection Time: 11/06/22 4:06 AM Result Value Ref Range WBC 15.35 (H) 4.00 - 10.80 K/uL RBC 3.54 3.85 - 5.15 M/uL HGB 9.8 (L) 12.0 - 15.3 g/dL HCT 31.2 (L) 36.0 - 45.2 % MCV 88.1 81.5 - 97.5 fL MCH 27.7 27.0 - 34.0 pg MCHC 31.4 32.0 - 36.0 g/dL RDW 14.6 11.5 - 15.5 % PLT 475 (H) 140 - 400 K/uL MPV 9.7 6.6 - 11.1 fL nRBCs 0 <=0 /100 WBCs BASIC METABOLIC PANEL Collection Time: 11/06/22 4:06 AM Result Value Ref Range BUN 33 (H) 6 - 20 mg/dL Creatinine 1.2 (H) 0.5 - 1.0 mg/dL Estimated Glomerular Filtration Rate 43 (L) >=60 mL/min Sodium 134 (L) 135 - 146 mmol/L Potassium 3.6 3.5 - 5.1 mmol/L Chloride 99 98 - 107 mmol/L CO2 26 22 - 32 mmol/L Anion Gap 9 7 - 15 mmol/L Glucose 137 (H) 70 - 120 mg/dL Calcium 9.3 8.4 - 10.2 mg/dL GLUCOSE METER, POINT OF CARE Collection Time: 11/06/22 7:39 AM Result Value Ref Range Glucose Meter 126 (H) 70 - 120 mg/dL IMAGING: No imaging results in the last 24 hours IMPRESSION: Principal Problem: Diverticulitis of colon Active Problems: Asthma with severity to be determined HTN, goal below 140/90 Type 2 diabetes mellitus with hemoglobin A1c goal of less than 7.5% ([facility]) HECTOR (generalized anxiety disorder) COPD, group B, 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 ([facility]) Morbid obesity with BMI of 40.0-44.9, adult ([facility]) Paroxysmal atrial fibrillation (H[facility]) Chronic systolic heart failure ([facility]) Chronic kidney disease, stage 3a ([facility]) Resolved Problems: * No resolved hospital problems. * 81 year old female PMH as above now s/p LAR for recurrent diverticulitis with c/f colovesical fistula. PLAN: IVF: dc'd 11/03 DVT/PE ppx: LMWH Analgesia: tylenol ATC, tramadol ATC, oxy 5/10 prn Diet: low fiber diet GI ppx: Proton Pump Inhibitor, carafate, house antacid Nausea: zofran and compazine Sánchez: Will remain in place until 11/[address] cysto Labs: AM CBC, BMP Drains/Lines: PIV Deann/Sutures: none Activity: OOB ad elia Respiratory: RPDP Home Medications: restart SOLAR POOL HEATING INSTALLER metoprolol, lipitor, combivent, zoloft, albuterol, omeprazole, lasix.Interchange incruse ellipta for SOLAR POOL HEATING INSTALLER spiriva and SSI for SOLAR POOL HEATING INSTALLER glimepiride per protocol. Resume SOLAR POOL HEATING INSTALLER spironolactone, bASA. Holding vitamins, SOLAR POOL HEATING INSTALLER abx, phenergan, bentyl, probiotic, vicodin, eye drops. Consults Requested: none new Dispo: med surg - OOB, cystogram tomorrow, continue monitoring PO intake Patient was examined and will be discussed with Dr. Snyder. Jaylon Ferraro Jr, MD PGY-3, Department of General Surgery 11/06/2022 7:48 AM Associated attestation - Dionte Snyder MD - 11/08/2022 4:59 PM EST I saw and evaluated the patient 11/06/2022. I have reviewed the trainee note and agree. * Care Plan - Kayli Horne LPN - 11/06/2022 1:54 AM EST Problem: Safety & Risk for Injury Goal: Patient will remain free from injury. Outcome: Progressing Clinical Goal(s): pt will remain free from falls during shift (11/05/222010) Possible barriers to meeting goal(s)/advancing plan of care: pt condition Stability of the patient: Moderately stable - low risk of patient condition declining or worsening Summary regarding today's goal(s): Met: pt was free from falls during shift Recommendations: continue with fall precautions * Care Plan - Yolette Velazquez RN - 11/05/2022 6:18 PM EST Clinical Goal(s): Patient will remain free from falls this shift (11/05/221199) Possible barriers to meeting goal(s)/advancing plan of care: Patient condition Stability of the patient: Moderately stable - low risk of patient condition declining or worsening Summary regarding today's goal(s): Met: Patient will remain free from falls this shift Recommendations: Continue to implement appropriate fall precautions and hourly safety rounding * Ancillary Progress Note - Mendel Nye RN - 11/05/2022 11:55 AM EST POST ACUTE CARE CARE MANAGEMENT [address] [address] Name: Nina Harrington [place] [facility] [place] [facility] Date: 11/05/2022 Time: 11:56 AM Post-Acute Care Patient General Information Living Quarters: House (11/02/22799) How many stories is the dwelling?: One Story (11/02/22799) Number of steps to enter living quarters:: 5 (w/ handrails) (11/02/22799) Location of bathroom(s): All floors or Single story dwelling (11/02/22799) History of falling: No (11/05/22799) What was your living situation prior to admission/observation?: Independently;Alone (11/02/22799) Do you have any children, pets, or other dependents that you are currently caring for?: No (11/02/22799) AM-PAC Score With Stairs : 16 (11/05/22910) Post-Acute Care with AM-PAC < 17.99 Rehab diagnosis: Does not meet criteria (11/05/221154) Nursing Home Facility (SNF) Guidelines For Medical Approval (must select both): Care must be provided by an RN/SVP RESEARCH AND STRATEGIC ANALYSIS and cannot be managed at home;Care requires observation, monitoring and evaluation of effectiveness on a daily basis (11/05/22 115) SNF guidelines for Rehab Approval (All selections required): Able to participate for at least 1 hour of therapy per day;Services required only able to be provided in an inpatient setting;Established rehabilitative progress;One or more therapy modalities (PT/OT/ST) at least 5 times a week;Requires intense care planning with realistic goals as identified by 1 of the following;Frequent monitoring and or revision of treatment plan;Requries Training (select at least one);Frequent re-assessment of established rehabilitative progress (11/05/221154) Therapy Modalities: Physical Therapy;Occupational Therapy (11/05/221154) Intense Care Plan Goals: Assistance with application for community services;Coordination of multiple community services;Completion of home evaluation, assistance with home modifications;Family medication and/or transfer training (11/05/221154) SNF Required Training: Gait training;Transfer Training;ADL training, with or without adaptive equipment (11/05/221154) Approved for Nursing Home Rehab: Approved for Nursing Home Rehab (11/05/221154) CM met with patient and daughters at bedside, and described differences between IRF and SNF rehab levels. SNF facility list presented to pt earlier in day. Family requesting referral to [facility] IRF first, based on previous experience/stay. Requesting referral to [facility] SNF as second choice, if declined by [facility]. * Ancillary Progress Note - Mendel Nye RN - 11/05/2022 9:30 AM EST CARE MANAGEMENT - ADULT TRANSITION NOTE [facility] [place] [address] Name: Nina Harrington Location: [facility] [place] [facility]A Date: 11/05/2022 Time: 9:30 AM Prescription Coverage: Yes (11/02/22799) Risk Stratification Risk Stratification Psycho Social/Care Gaps concerns identified upon admission:: Adjustment to illness/injury () OBRA or OPTIONS needed for placement: No (11/02/22799) Readmission Risk Score: 28.98 (11/05/22799) AM-PAC Score With Stairs : 16 (11/05/22910) Caregiver Information Patient Contacts Name Relation Home Work Mobile Stephani Horta Adult Child [phone] BryanTaylor Adult Child [phone] Kaci Moreno [phone] Transition of Care Checklist Transition of Care Checklist (aka Readmission Risk Score) Readmission Risk Score: 28.98 (11/05/22 0800) Narrative: Pt discussed in IDT Rounds today. Surgery patient discussed with Cynthia PEMBERTON this morning. Medically ready for discharge- pt requesting rehab stay. S/p Lap colectomy on 11/01/22 To keep drain at discharge. Sánchez catheter remaining until Fri11/08/22- to return for cysto/stent removal. PT OT to evaluate today. CM met with pt at bedside and presented [facility] List of SNF rehab facilities. Pt started to review, but stated "my girls coming in... can I talk about it with them". CM to f/u with pt and daughtersthis afternoon- instructed to have CM paged with any questions. UPDATE: CM met with patient and daughters at bedside to discuss rehab placement. IRF and SNF levels explained. Pt with prior experience at [facility]. Family requesting referral to [facility] first. If declined, [facility] is second choice. CM released referrals to both facilities in [facility]. CM spoke with Liliana at [facility]- accepting for rehab stay. Made aware of cysto and Sánchez removalon Friday11/08/2022. Will accept afterwards. CM updated Cynthia PEMBERTON- will see if cysto can be scheduled earlier to ensure discharge on Friday. CM updated pt and daughters at bedside. Family prefers medical transportation be arranged. Please contact CM with any further concerns. Anticipated Transportation at Discharge: family Patient/Family Expectations: SNF rehab Transition Planning Transition Planning Transition Plan/Considerations: Needs uncertain at this time - Continue monitoring for needs;Discussed at Interdisciplinary Team / Boost Rounds (11/02/22 0800) Additional Considerations: none Care Management will continue to monitor and assist with discharge planning needs * Ancillary Progress Note - Lexi Solo PTA - 11/05/2022 9:13 AM EST PROGRESS NOTE - Physical Therapy [facility] [place] [address] Name: Nina Harrington Location: [facility] [place] [facility] Date: 11/05/2022 Time: 9:13 AM Nina Harrington is a/an 81 year old female. Patient Status: Inpatient Insurance: Payor: MEDICARE Plan: MEDICARE A AND B Product Type: *No Product type* Payor: [employer] [place] Plan: [employer] [facility] Product Type: HMO Patient Identified By: Name, ID Band and Date Diagnosis: colocutaneous fistula, diverticulitis (11/05/22910) Status of treatment: Treatment completed (11/05/22910) Orders: PT evaluation and treatment (11/05/22910) Weight Bearing Status: Weight bearing as tolerated (11/05/22910) Precautions: Alarms;Falls;Safety;Isolation;Sánchez;Oxygen (11/05/22910) Total Treatment Time--free text: 14 (11/05/22910) Treatment Provided: Therapeutic Activities 14 minutes: transfer training short distance ambulation, exercises Pain: Patient has complaints of pain. Pain located side, back. 04/21 Rn aware and present Transfers Sit-Stand: Contact Guard (11/05/22910) Stand-Sit: Contact Guard (11/05/22910) Ambulation: Distance ambulated (feet): 12' Assistive Device: Rolling walker Assist: Contact Guard (limited by nausea) Balance Sit (Static): Fair (11/05/22910) Sit (Dynamic): Fair (11/05/22910) Stand (Static): (fair -) (11/05/22910) Stand (Dynamic): (fair -) (11/05/22910) Extremity Exercise Sitting: Hip;Knee (11/05/22910) Hip : Bilateral LE;Flexion;2 sets of 10 (11/05/22910) Knee : Bilateral LE;Extension;2 sets of 10 (11/05/22910) Topic of Education: Safety with mobility, Goals/plan of care, Use of assistive device and Fall prevention Method of Education: Verbal discussion and explanation provided to pt: Alarm Status Patient positioned in: Chair (11/05/22910) With: Pressure pad alarm intact and functioning and call harrison in reach (11/05/22910) Following session patient seated OOB in chair with chair alarm activated and cord plugged into callbell system. Patient Education Review of Precautions: Safety;Fall (11/05/22910) Safety Awareness: Patient verbalizes insight of current deficits;Patient demonstrates carryover of insight during functional tasks;Patient can communicate basic needs;Needs cueing supervision (11/05/22910) Assessment: pt required contact guard for transfers with cues for hand placement. She ambulated 12'using a rolling walker requiring contact guard assistance. Pt presents with with a slow gait speed and imbalanced gait. Distance was limited by nausea. Pt had received medication for that just before mobility. Seated exercises were done to increase LE strength. Please consider post-acute care services which may include home health, penitentiary, outpatient therapy or inpatient rehabilitation. The level of care will be determined in collaboration with patient, family/caregiver and care team me mack. Deficits requiring P.T. treatment needs: Weakness;Endurance (11/05/22910) Equipment needs: Rolling walker (11/05/22910) Plan: Continue with current treatment plan established on evaluation. AM PAC Score with Stairs: 16 A portion of this AM-PAC assessment not scored based on functional assessment; rather clinical decision making utilized based on current findings and/or prior level of function. Please refer to future AM-PAC calculations of functional ability as they become available. * Ancillary Progress Note - JENNIFER Barry - 11/05/2022 9:03 AM EST PROGRESS NOTE - Occupational Therapy [facility] [place] [address] Name: Nina Harrington Location: [facility] [place] [facility] Date: 11/05/2022 Time: 9:03 AM Nina Harrington is a 81 year old female. Patient Status: Inpatient Insurance: Payor: MEDICARE Plan: MEDICARE A AND B Product Type: *No Product type* Payor: [employer] [place] Plan: [employer] [facility] Product Type: HMO Patient Seen: at bedside, nursing cleared patient for therapy Patient Identified By: Name, ID Band and Date Diagnosis: colocutaneous fistula, diverticulitis (11/05/22900) Status of treatment: Treatment completed (11/05/22900) Orders: OT evaluation and treatment;OT OOB (11/05/22900) Weight Bearing Status: Weight bearing as tolerated (11/05/22900) Precautions: Alarms;Falls;Safety (11/05/22900) Total Treatment Time: (11/05/22900) Pain: No complaints of pain Current Functional Status: Activities of Daily Living: Self Care Grooming: Supervision (Please comment) (11/05/22900) Dressing Upper Body: Supervision (Please comment) (don gown) (11/05/22900) Lower Body: Maximal Assistance (don slipper socks) (11/05/22900) Bathing Upper Body: Supervision (Please comment) (11/05/22900) Functional Ambulation Assistive Device: Rolling walker (11/05/22900) Distance in feet:: 5 (11/05/22900) Level of Assistance: Minimal Assistance (11/05/22900) Bed Mobility Supine-Sit: Minimal Assistance (11/05/22900) OT Transfers Sit-Stand: Contact Guard (from elevated bed surface) (11/05/22900) Stand-Sit: Minimal Assistance (11/05/22900) Bed-Chair: Minimal Assistance (11/05/22900) Balance Sit (Static): Fair (11/05/22900) Sit (Dynamic): Fair (11/05/22900) Stand (Static): (Fair-) (11/05/22900) Stand (Dynamic): (Fair- to Poor+) (11/05/22900) Alarm Status Patient left seated in recliner with nursing and physical therapy present Treatment Provided: Self Fpc Management Trainin minutes Therapeutic Activity: 10 minutes Deficits requiring O.T. treatment needs: ADL/self- care;Balance;Endurance;Functional mobility;Safety;Upper extremity strength;Upper extremity range of motion;Weakness (11/03/22813) Assessment: Supine in bed upon entering room covered in emesis. Patient demonstrates grooming and upper body bathing supervision level set up. Patient donned gown supervision level set in long sitting. Patient demonstrates supine to sit edge of bed with minimal assistance of 1 and head of bed elevated. Patient required assistance with lower body dressing seated at edge of bed. Patient performed functional transfers and ambulation with assistance of 1 using rolling walker. Please consider post-acute care services which may include home health, penitentiary, outpatient therapy or inpatient rehabilitation. The level of care will be determined in collaboration with patient, family/caregiver and care team members. Plan: Will continue to follow as per plan. Anticipated Frequency (on eval): 1 to 3 times per week (11/05/22900) AM-PAC Help From Another Person Eating Meals: None (11/05/22900) Help From Another Person Taking Care of Personal Grooming: A little (11/05/22900) Help From Another Person To Put On/Take Off Upper Body Clothing: A little (11/05/22900) Help From Another Person To Put On/Take Off Lower Body Clothing: A lot (11/05/22900) Help From Another Person Toileting: A lot (11/05/22900) Help From Another Person Bathing: A lot (11/05/22900) OT AM-PAC Score: 16 (11/05/22900) OT AM-PAC t-Scale Score: 35.96 (11/05/22900) A portion of this AM-PAC assessment not scored based on functional assessment; rather clinical decision making utilized based on current findings and/or prior level of function. Please refer to future AM-PAC calculations of functional ability as they become available. * Progress Notes - Post-Op Global - Chuck Lawton MD - 11/05/2022 5:13 AM EST PROGRESS NOTE - Colorectal Surgery [facility] [place] [address] Name: Nina Harrington Location: [facility] [place] [facility] Date: 11/05/2022 Time: 5:13 AM DIAGNOSIS: Recurrent diverticulitis, colovesical fistula PROCEDURE: Hand-assisted laparoscopic low anterior resection with primary anastomosis DATE OF SURGERY: 11/01/2022 POST OP DAY: 4 SUBJECTIVE: AFVSS, NAEON. On NC4L overnight, which is her baseline night home oxygen for COPD.. (+)flatus (+)BM. Had emesis 100mL overnight. States she "cannot eat". She has been eating sherbet in bed but is eating semi-recumbent and her major complaint is reflux and phlegm. Encouraged to get OOB and eat in chair. States she is throwing up, but denies nausea and the emesis is mainly phlegm. Has not been OOB;encouraged to work with PT OT. States she would feel safer at a penitentiary facility rather than home with her daughter. Better renal indices UOP 1.1L last 24 Hrs Drain: 65 SS Last Bowel Movement: 11/04/22 (per Pt) OBJECTIVE: Most Recent Vital Signs: BP: 110 mmHg/64 mmHg (11/05/22244) Pulse: 68 (11/05/22244) Temp: 36.72 C (11/05/22244) Resp: 16 (11/05/22244) SpO2: 98 % (11/05/22244) Vital Signs Last 24 Hours: Systolic BP: Most Recent Systolic BP Av mmHg Min: 102 mmHg Max: 135 mmHg Temperature: Most Recent Temperature Av.4 C Min: 35.78 C Max: 36.72 C Pulse: Pulse Av Min: 60 Max: 105 Respirations: Resp Av.2 Min: 16 Max: 18 SpO2: SpO2 Av.7 % Min: 97 % Max: 100 % In / Out Past 24 Hrs: Intake/Output Summary (Last 24 hours) at 11/05/2022 0576 Last data filed at 11/05/2022 0440 Gross per 24 hour Intake -- Output 1685 ml Net -1685 ml Physical Exam: Constitutional: no acute distress Head/Neck: normal: normocephalic, atraumatic; no masses, tenderness, or adenopathy Eyes: sclera and conjunctiva normal Neck: supple, trachea midline CV: normal rate and rhythm Chest: normal respiratory effort, chest wall normal Abdomen: soft, nondistended, aTTP, incisions dressed with dermabond c/d/i, LLQ JERALD in place drainingSS fluid Musculoskeletal: (-) negative Extremities: no clubbing or cyanosis, minimal BLE pitting edema Skin: warm, dry Neuro: alert, GCS 15 LABS: Labs reviewed as indicated below: No results found for this or any previous visit (from the past 12 hour(s)). IMAGING: No imaging results in the last 24 hours IMPRESSION: Principal Problem: Diverticulitis of colon Active Problems: Asthma with severity to be determined HTN, goal below 140/90 Type 2 diabetes mellitus with hemoglobin A1c goal of less than 7.5% ([facility]) HECTOR (generalized anxiety disorder) COPD, group B, 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 ([facility]) Morbid obesity with BMI of 40.0-44.9, adult ([facility]) Paroxysmal atrial fibrillation (HCC) Chronic systolic heart failure ([facility]) Chronic kidney disease, stage 3a ([facility]) Resolved Problems: * No resolved hospital problems. * 81 year old female PMH as above now s/p LAR for recurrent diverticulitis with c/f colovesical fistula. PLAN: IVF: dc'd 11/03 DVT/PE ppx: SQH Analgesia: tylenol ATC, tramadol ATC, oxy 5/10 prn Diet: low fiber diet GI ppx: Proton Pump Inhibitor Nausea: zofran and compazine Sánchez: Will remain in place until 11/08 Labs: AM CBC, BMP Drains/Lines: PIV Deann/Sutures: none Activity: OOB ad elia Respiratory: RPDP Home Medications: restart SOLAR POOL HEATING INSTALLER metoprolol, lipitor, combivent, zoloft, albuterol, omeprazole, lasix.Interchange incruse ellipta for SOLAR POOL HEATING INSTALLER spiriva and SSI for SOLAR POOL HEATING INSTALLER glimepiride per protocol. Resume SOLAR POOL HEATING INSTALLER spironolactone, bASA. Holding vitamins, SOLAR POOL HEATING INSTALLER abx, phenergan, bentyl, probiotic, vicodin, eye drops. Consults Requested: PT/OT postop Needs to get OOB and ambulate Aggressive IS Discuss with CM referrals and placement Agreed to work with PT OT Today Added carafate 1g ACHS for reflux Dispo: med surg - monitor PO tolerance, OOB, OP cystogram, keep drain on DC Patient was examined and was discussed with Dr. Little Lawton MD PGY-1 General Surgery Resident [facility] Associated attestation - Cristiane Fitch MD - 11/06/2022 3:53 PM EST I saw and evaluated the patient 11/05/22. I have reviewed the trainee note and agree. Agree with continuing to watch PO tolerance. Cristiane Fitch MD [address] [place] [id number] 11/06/2022 * Care Plan - Alycia Cee LPN - 11/04/2022 4:23 PM EST Clinical Goal(s): pt will maintain adequate pain control this shift (11/04/22 0700) Possible barriers to meeting goal(s)/advancing plan of care: condition Stability of the patient: Moderately stable - low risk of patient condition declining or worsening Summary regarding today's goal(s): Met: pt had adequate pain control this shift Recommendations: continue to offer pain medications * Ancillary Progress Note - Lexi Solo PTA - 11/04/2022 2:34 PM EST PROGRESS NOTE - Physical Therapy [facility] [place] [address] Name: Nina Harrington Location: [place] [address]A Date: 11/04/2022 Time: 2:34 PM Nina Harrington is a/an 81 year old female. Patient Status: Inpatient Insurance: Payor: MEDICARE Plan: MEDICARE A AND B Product Type: *No Product type* Payor: [employer] [place] Plan: [employer] [facility] Product Type: HMO Patient Identified By: Name, ID Band and Date Diagnosis: colocutaneous fistula, diverticulitis (11/04/221432) Status of treatment: Treatment completed (11/04/221432) Orders: PT evaluation and treatment (11/04/221432) Weight Bearing Status: Weight bearing as tolerated (11/04/221432) Precautions: Alarms;Falls;Safety;Isolation;Sánchez;Oxygen (11/04/221432) Total Treatment Time--free text: 10 (11/04/221432) Treatment Provided: Therapeutic Exercises: 10 minutes Pain: No complaints of pain Extremity Exercise Supine: Hip;Knee;Isometrics (11/04/221432) Hip : Bilateral LE;Flexion;Adduction;Abduction;2 sets of 10 (11/04/221432) Knee : Bilateral LE;Heel slide;2 sets of 10 (11/04/221432) Isometrics: Bilateral LE;Glute sets;Quad sets;2 sets of 10 (11/04/221432) Topic of Education: Goals/plan of care Method of Education: Verbal discussion and explanation provided to pt: Alarm Status Patient positioned in: Bed (11/04/221432) With: Bed alarm intact and functioning and call harrison in reach (11/04/221432) Patient Education Review of Precautions: Safety (11/03/22813) Safety Awareness: Patient verbalizes insight of current deficits (11/03/22813) Assessment: Pt completed supine exercises to increase LE strength. Pt politely declined mobility atthis time due to nausea. Please consider post-acute care services which may include home health, penitentiary, outpatient therapy or inpatient rehabilitation. The level of care will be determined in collaboration with patient, family/caregiver and care team members. Deficits requiring P.T. treatment needs: Weakness;Endurance (11/04/221432) Plan: Continue with current treatment plan established on evaluation. AM-PAC assessment not scored at this time due to no mobility being performed. Please refer to future AM-PAC calculations of functional mobility as they become available. * Diagnostic Clarification - Chuck Lawton MD - 11/04/2022 12:17 PM EST The patient has been diagnosed with JOSE DAVID on CKD3a. * Ancillary Progress Note - Mendel Nye RN - 11/04/2022 11:56 AM EST CARE MANAGEMENT - ADULT TRANSITION NOTE [facility] [place] [address] Name: Nina Harrington Location: [facility] [place] [facility] Date: 11/04/2022 Time: 11:57 AM Prescription Coverage: Yes (11/02/22799) Risk Stratification Risk Stratification Psycho Social/Care Gaps concerns identified upon admission:: Adjustment to illness/injury () OBRA or OPTIONS needed for placement: No (11/02/22799) Readmission Risk Score: 28.12 (11/04/22799) AM-PAC Score With Stairs : 16 (11/04/22 1000) Caregiver Information Patient Contacts Name Relation Home Work Mobile Stephani Horta Adult Child [phone] Taylor Adams Adult Child [phone] Kaci Moreno [phone] Transition of Care Checklist Transition of Care Checklist (aka Readmission Risk Score) Readmission Risk Score: 28.12 (11/04/22799) Narrative: Pt discussed in IDT Rounds today. Surgery patient discussed with Cynthia PEMBERTON this morning. Anticipated discharge later this week. JERALD LLQ in place- keeping at discharge. Sánchez catheter in place- keeping unitil 11/08/22. Diet advanced- AROBF. Has baseline home oxygen use- 4Lpm at night. [facility] currently = 17. Possible need for rehab stay pending mobility progression. Please contact CM with any further concerns. Anticipated Transportation at Discharge: family Patient/Family Expectations: home vs rehab Transition Planning Transition Planning Transition Plan/Considerations: Needs uncertain at this time - Continue monitoring for needs;Discussed at Interdisciplinary Team / Boost Rounds (11/02/22799) Additional Considerations: none Care Management will continue to monitor and assist with discharge planning needs * Progress Notes - Post-Op Global - Chuck Lawton MD - 11/04/2022 5:38 AM EST PROGRESS NOTE - Colorectal Surgery [facility] [place] [address] Name: Nina Harrington Location: [facility] [place] [facility] Date: 11/04/2022 Time: 5:38 AM DIAGNOSIS: Recurrent diverticulitis, colovesical fistula PROCEDURE: Hand-assisted laparoscopic low anterior resection with primary anastomosis DATE OF SURGERY: 11/01/2022 POST OP DAY: 3 SUBJECTIVE: AFVSS, NAEON. On NC4L overnight, which is her baseline night home oxygen for COPD.. (+)flatus (-)BM. Had emesis 100mL overnight and received compazine which resolved her nausea. No urine output charted from 0700 to 2359 on 11/03, UOP 300mL last 6 Hrs Drain: 50 SS Last Bowel Movement: 11/01/22 (per Pt) OBJECTIVE: Most Recent Vital Signs: BP: 108 mmHg/63 mmHg (11/04/2231) Pulse: 59 (11/04/2231) Temp: 36.22 C (11/04/2231) Resp: 18 (11/04/2231) SpO2: 96 % (11/04/2231) Vital Signs Last 24 Hours: Systolic BP: Most Recent Systolic BP Av.5 mmHg Min: 108 mmHg Max: 144 mmHg Temperature: Most Recent Temperature Av.3 C Min: 36 C Max: 36.39 C Pulse: Pulse Av.3 Min: 59 Max: 97 Respirations: Resp Av Min: 18 Max: 18 SpO2: SpO2 Av % Min: 94 % Max: 100 % In / Out Past 24 Hrs: Intake/Output Summary (Last 24 hours) at 11/04/2022 0538 Last data filed at 11/04/2022 0000 Gross per 24 hour Intake 360 ml Output 450 ml Net -90 ml Physical Exam: Constitutional: no acute distress Head/Neck: normal: normocephalic, atraumatic; no masses, tenderness, or adenopathy Eyes: sclera and conjunctiva normal Neck: supple, trachea midline CV: normal rate and rhythm Chest: normal respiratory effort, chest wall normal Abdomen: soft, nondistended, aTTP, incisions dressed with dermabond c/d/i, LLQ JERALD in place drainingSS fluid Musculoskeletal: (-) negative Extremities: no clubbing or cyanosis, minimal BLE pitting edema Skin: warm, dry Neuro: alert, GCS 15 LABS: Labs reviewed as indicated below: Recent Results (from the past 12 hour(s)) CBC Collection Time: 11/04/22 4:21 AM Result Value Ref Range WBC 19.15 (H) 4.00 - 10.80 K/uL RBC 3.54 3.85 - 5.15 M/uL HGB 10.1 (L) 12.0 - 15.3 g/dL HCT 33.0 (L) 36.0 - 45.2 % MCV 93.2 81.5 - 97.5 fL MCH 28.5 27.0 - 34.0 pg MCHC 30.6 32.0 - 36.0 g/dL RDW 14.9 11.5 - 15.5 % PLT 397 140 - 400 K/uL MPV 9.5 6.6 - 11.1 fL nRBCs 0 <=0 /100 WBCs BASIC METABOLIC PANEL Collection Time: 11/04/22 4:21 AM Result Value Ref Range BUN 26 (H) 6 - 20 mg/dL Creatinine 1.3 (H) 0.5 - 1.0 mg/dL Estimated Glomerular Filtration Rate 42 (L) >=60 mL/min Sodium 129 (L) 135 - 146 mmol/L Potassium 3.9 3.5 - 5.1 mmol/L Chloride 95 (L) 98 - 107 mmol/L CO2 24 22 - 32 mmol/L Anion Gap 10 7 - 15 mmol/L Glucose 132 (H) 70 - 120 mg/dL Calcium 9.2 8.4 - 10.2 mg/dL IMAGING: No imaging results in the last 24 hours IMPRESSION: Principal Problem: Diverticulitis of colon Active Problems: Asthma with severity to be determined HTN, goal below 140/90 Type 2 diabetes mellitus with hemoglobin A1c goal of less than 7.5% ([facility]) HECTOR (generalized anxiety disorder) COPD, group B, 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 ([facility]) Morbid obesity with BMI of 40.0-44.9, adult ([facility]) Paroxysmal atrial fibrillation (HCC) Chronic systolic heart failure ([facility]) Chronic kidney disease, stage 3a ([facility]) Resolved Problems: * No resolved hospital problems. * 81 year old female PMH as above now s/p LAR for recurrent diverticulitis with c/f colovesical fistula. PLAN: IVF: dc'd 11/03 DVT/PE ppx: SQH Analgesia: tylenol ATC, tramadol ATC, oxy 5/10 prn Diet: advance to LFD GI ppx: Proton Pump Inhibitor Nausea: zofran Sánchez: Will remain in place until 11/08 Labs: AM CBC, BMP Drains/Lines: PIV Deann/Sutures: none Activity: OOB ad elia Respiratory: RPDP Home Medications: restart SOLAR POOL HEATING INSTALLER metoprolol, lipitor, combivent, zoloft, albuterol, omeprazole, lasix.Interchange incruse ellipta for SOLAR POOL HEATING INSTALLER spiriva and SSI for SOLAR POOL HEATING INSTALLER glimepiride per protocol. Resume SOLAR POOL HEATING INSTALLER spironolactone, bASA. Holding vitamins, SOLAR POOL HEATING INSTALLER abx, phenergan, bentyl, probiotic, vicodin, eye drops. Consults Requested: PT/OT postop Needs to get OOB and ambulate Aggressive IS Dispo: med surg - AROBF, monitor PO tolerance, OOB, OP cystogram, keep drain on DC Patient was examined and was discussed with Dr. Snyder Associated attestation - Dionte Snyder MD - 11/08/2022 4:57 PM EST I saw and evaluated the patient 11/04/2022. I have reviewed the trainee note and agree. * Care Plan - Silver Santoro RN - 11/03/2022 5:56 PM EST Clinical Goal(s): pt will remain free from falls (11/03/22 0740) Possible barriers to meeting goal(s)/advancing plan of care: None Stability of the patient: Moderately stable - low risk of patient condition declining or worsening Summary regarding today's goal(s): Met: NB Recommendations: c/o heartburn, tums and compazine MD juliette notified. * Pt Handout (on AVS) - Laverne Barth RDN - 11/03/2022 9:35 AM EST Images from the original note were not included. [id number] Low-Fiber Diet Eggs are high in protein and easy to digest. Eating a low-fiber diet means eating foods that don?t have much fiber. These foods are easy to digest. Most of the fiber that you eat passes undigested through your bowel. This is what forms stool. Low-fiber foods can help to slow down your bowel movements. When you eat a low-fiber diet, you have fewer stools. This lets your intestine rest. Your healthcare provider will tell you how long you need to be on this diet. It may only be for a short time. Low-fiber foods often don?t give you all the nutrients you need to stay healthy. Your healthcare provider may have you take certain vitamins while you are on this diet. Reasons to eat a low-fiber diet The goal of a low-fiber diet is to limit the size and number of your stools. It may be prescribed if you: Are going through chemotherapy or radiation treatments Have had intestinal surgery Have trouble digesting food Have a condition that affects your intestine, such as irritable bowel syndrome, Crohn?s disease,ulcerative colitis, or diverticulitis General guidelines for a low-fiber diet In general, a low-fiber diet means having fewer than 13 grams of fiber a day. Your healthcare provider may give you a list of things you can and can?t eat or drink. Read food labels. Choose foods anddrinks that have as close to zero grams of fiber as possible. Here are general guidelines to follow: Breads, pasta, cereal, rice, and other starches (6 to 11 servings daily) What to choose: white bread, biscuits, muffins, and white rolls; plain crackers; waffles; white pasta; white rice; cream of wheat; grits; white pancakes; corn flakes; cooked potatoes without skin;pretzels. Fiber content of these foods should be less than 0.5 () gram per serving. What to pass up: whole-wheat or whole-grain breads, crackers, and pasta; breads with seeds or nuts; wheat germ; beckie crackers; cornbread; wild or brown rice; cereals with whole-grain, bran, and granola; cereals with seeds, nuts, coconut, or dried fruit; potatoes with skin Milk and dairy (2 servings daily) What to choose: milk and buttermilk; yogurt or ice cream without seeds or nuts; custard or pudding; sour cream; cheese and cottage cheese; cream sauces, soups, and casseroles What to pass up: ice cream and yogurt with seeds, nuts, or fruit chunks Fruit (2 to 4 servings daily) What to choose: ripe banana; ripe nectarine, peach, apricot, papaya, and plum; soft honeydew melon and cantaloupe; cooked or canned fruit without skin or seeds (not sweetened with sorbitol); applesauce; strained fruit juice (without pulp) What to pass up: raw or dried fruit; all berries; raisins; canned and raw pineapple; prunes and prune juice; fruit juice with pulp Vegetables (3 to 5 servings daily) What to choose: well-cooked or canned vegetables without seeds, such as spinach, eggplant, greenand wax beans, carrots, yellow squash, and pumpkin; lettuce on a sandwich What to pass up: all raw or steamed vegetables; vegetables with seeds, such as unstrained tomatosauce; green peas; chavez beans; broccoli; corn; parsnips Meats and protein (4 to 6 ounces daily) What to choose: tender, well-cooked meat, including ground meat, poultry, and fish; eggs; tofu; creamy peanut butter What to pass up: processed meats such as hot dogs and sausages, tough, chewy meat with gristle; peas, including split, yellow, and black-eyed; beans, including navy, chavez, black, garbanzo, soy, yu, and lentil; peanuts and crunchy peanut butter Fats, oils, sauces, and condiments (fewer than 8 teaspoons daily) What to choose: butter, margarine, oils, whipped cream, sour cream, mayonnaise, smooth dressingsand sauces; plain gravy; smooth condiments What to pass up: dressing with seeds or fruit chunks; pickles and relishes Other foods and drinks What to choose: water; plain gelatin; plain puddings; pretzels; plain cookies and cakes; honey, syrup; decaffeinated drinks, including tea and coffee What to pass up: popcorn; potato chips; spicy foods; fried, greasy foods; alcohol (ask your healthcare provider); marmalade, jam, and preserves; desserts that have seeds, nuts, coconut, dried fruit, whole grains, or bran; candy that has seeds or nuts; drinks sweetened with sorbitol or other sugar substitutes; caffeinated drinks, including tea, coffee, soda, and energy drinks Last Reviewed Date: 09/12/202219992878-9497 [employer]. All rights reserved. This information is not intended as a substitute for professional medical care. Always follow your healthcare professional's instructions. * Pt Handout (on AVS) - Laverne Barth RDN - 11/03/2022 8:07 AM EST Images from the original note were not included. [id number] Low-Fiber Diet Eggs are high in protein and easy to digest. Eating a low-fiber diet means eating foods that don?t have much fiber. These foods are easy to digest. Most of the fiber that you eat passes undigested through your bowel. This is what forms stool. Low-fiber foods can help to slow down your bowel movements. When you eat a low-fiber diet, you have fewer stools. This lets your intestine rest. Your healthcare provider will tell you how long you need to be on this diet. It may only be for a short time. Low-fiber foods often don?t give you all the nutrients you need to stay healthy. Your healthcare provider may have you take certain vitamins while you are on this diet. Reasons to eat a low-fiber diet The goal of a low-fiber diet is to limit the size and number of your stools. It may be prescribed if you: Are going through chemotherapy or radiation treatments Have had intestinal surgery Have trouble digesting food Have a condition that affects your intestine, such as irritable bowel syndrome, Crohn?s disease,ulcerative colitis, or diverticulitis General guidelines for a low-fiber diet In general, a low-fiber diet means having fewer than 13 grams of fiber a day. Your healthcare provider may give you a list of things you can and can?t eat or drink. Read food labels. Choose foods anddrinks that have as close to zero grams of fiber as possible. Here are general guidelines to follow: Breads, pasta, cereal, rice, and other starches (6 to 11 servings daily) What to choose: white bread, biscuits, muffins, and white rolls; plain crackers; waffles; white pasta; white rice; cream of wheat; grits; white pancakes; corn flakes; cooked potatoes without skin;pretzels. Fiber content of these foods should be less than 0.5 () gram per serving. What to pass up: whole-wheat or whole-grain breads, crackers, and pasta; breads with seeds or nuts; wheat germ; beckie crackers; cornbread; wild or brown rice; cereals with whole-grain, bran, and granola; cereals with seeds, nuts, coconut, or dried fruit; potatoes with skin Milk and dairy (2 servings daily) What to choose: milk and buttermilk; yogurt or ice cream without seeds or nuts; custard or pudding; sour cream; cheese and cottage cheese; cream sauces, soups, and casseroles What to pass up: ice cream and yogurt with seeds, nuts, or fruit chunks Fruit (2 to 4 servings daily) What to choose: ripe banana; ripe nectarine, peach, apricot, papaya, and plum; soft honeydew melon and cantaloupe; cooked or canned fruit without skin or seeds (not sweetened with sorbitol); applesauce; strained fruit juice (without pulp) What to pass up: raw or dried fruit; all berries; raisins; canned and raw pineapple; prunes and prune juice; fruit juice with pulp Vegetables (3 to 5 servings daily) What to choose: well-cooked or canned vegetables without seeds, such as spinach, eggplant, greenand wax beans, carrots, yellow squash, and pumpkin; lettuce on a sandwich What to pass up: all raw or steamed vegetables; vegetables with seeds, such as unstrained tomatosauce; green peas; chavez beans; broccoli; corn; parsnips Meats and protein (4 to 6 ounces daily) What to choose: tender, well-cooked meat, including ground meat, poultry, and fish; eggs; tofu; creamy peanut butter What to pass up: processed meats such as hot dogs and sausages, tough, chewy meat with gristle; peas, including split, yellow, and black-eyed; beans, including navy, chavez, black, garbanzo, soy, yu, and lentil; peanuts and crunchy peanut butter Fats, oils, sauces, and condiments (fewer than 8 teaspoons daily) What to choose: butter, margarine, oils, whipped cream, sour cream, mayonnaise, smooth dressingsand sauces; plain gravy; smooth condiments What to pass up: dressing with seeds or fruit chunks; pickles and relishes Other foods and drinks What to choose: water; plain gelatin; plain puddings; pretzels; plain cookies and cakes; honey, syrup; decaffeinated drinks, including tea and coffee What to pass up: popcorn; potato chips; spicy foods; fried, greasy foods; alcohol (ask your healthcare provider); marmalade, jam, and preserves; desserts that have seeds, nuts, coconut, dried fruit, whole grains, or bran; candy that has seeds or nuts; drinks sweetened with sorbitol or other sugar substitutes; caffeinated drinks, including tea, coffee, soda, and energy drinks Last Reviewed Date: 09/12/202219996542-1357 [employer]. All rights reserved. This information is not intended as a substitute for professional medical care. Always follow your healthcare professional's instructions. * Care Plan - Samuel Fleming RN - 11/02/2022 8:17 PM EST Clinical Goal(s): patient will remain safe during my shift (11/02/221999) Possible barriers to meeting goal(s)/advancing plan of care: Stability of the patient: Moderately stable - low risk of patient condition declining or worsening Summary regarding today's goal(s): Met: patient remained safe during my shift Recommendations: Continue plan of care * Ancillary Progress Note - Janny Wood COMPUTER SYSTEMS ENGINEER - 11/02/2022 8:45 AM EST CARE MANAGEMENT - ADULT INITIAL [place]CREENING [facility] [place] [address] Name: Nina Harrington [place] [facility] [place] [facility] Date: 11/02/2022 Time: 8:45 AM Patient Class: Inpatient (11/02/22799) Discussed patient with the interdisciplinary care team. This Industrial Engineering Technician performed a chart review and met with patient at bedside to complete admission screen and assessed needs for transition planning. The childcare aide role and services were explained and emotional support was provided. 30 Day Readmission Screening 30 Day Readmission Readmission within 30 days?: No (11/02/22799) Chief Complaint: No chief complaint on file. Prior Living Arrangements What was your living situation prior to admission/observation?: Independently;Alone (11/02/22799) Do you have any children, pets, or other dependents that you are currently caring for?: No (11/02/22799) Living Quarters: House (11/02/22799) How many stories is the dwelling?: One Story (11/02/22799) Number of steps to enter living quarters:: 5 (w/ handrails) (11/02/22799) Location of bathroom(s): All floors or Single story dwelling (11/02/22799) History of falling: No (11/01/221999) Prior Level of Functioning Describe the patient's ability prior to admission/observation to perform ADLs: Performs independently (11/02/22799) Describe the patient's mobility status prior to admission: Patient ambulates independently (11/02/22799) Patient uses assistive device: Yes (11/02/22799) If yes, choose:: Cane;Walker (11/02/22799) Caregiver Information Patient Contacts Name Relation Home Work Mobile Stephani Horta Adult Child [phone] Taylor Adams Adult Child [phone] Kaci Moreno [phone] Risk Stratification/Psychosocial/Care Gaps Risk Stratification Psycho Social/Care Gaps concerns identified upon admission:: Adjustment to illness/injury () OBRA or OPTIONS needed for placement: No (11/02/22799) Readmission Risk Score: 21.43 (11/02/22799) AM-PAC Score With Stairs : 20 (11/01/221999) Comments: Resides alone in 1 story home with 5 FERNANDO. Independent with ADLs and mobility. Uses cane or RW for ambulation. History of acute rehab at [facility]. No MH or substance use concerns noted. Will follow for needs and dispo planning as appropriate. Prior to Admission Services Services Prior to Admission SOLAR POOL HEATING INSTALLER Services (Services received within the last 30 days with exception, Psych within last two years): N/A (11/02/22799) [place] Dept. of Aging (PDA) Waiver Program: N/A (11/02/22799) SOLAR POOL HEATING INSTALLER Transportation (Services received within the last 30 days): Family/Friends Personal Vehicle (11/02/22799) Outpatient Industrial Engineering Technician: no, not applicable Patient/Family Expectations: Home Anticipated Disposition Plan & Post Acute Needs Anticipated Plan Anticipated D/C disposition per abbreviated screening: Other - Describe (pending clinical course) (11/02/22799) For further screening information, please refer to the Care Management flow document. * Care Plan - Samuel Fleming RN - 11/01/2022 9:54 PM EST Clinical Goal(s): Patient will remain safe during my shift (11/01/221999) Possible barriers to meeting goal(s)/advancing plan of care: Stability of the patient: Moderately stable - low risk of patient condition declining or worsening Summary regarding today's goal(s): Met: Patient remained safe during my shift Recommendations: Continue plan of care * Progress Notes - Non-Billable - Jaylon Ferraro Jr., MD - 11/01/2022 5:10 PM EST PROGRESS NOTE - Colorectal Surgery [facility] [place] [address] Name: Nina Harrington Location: [facility] [place] [facility] Date: 11/01/2022 Time: 5:10 PM DIAGNOSIS: Recurrent diverticulitis, colovesical fistula PROCEDURE: Hand-assisted laparoscopic low anterior resection with primary anastomosis DATE OF SURGERY: 11/01/2022 POST OP DAY: 0 - POC SUBJECTIVE: Examined at bedside postoperatively. Endorses mild generalized abdominal pain. Denies nausea, vomiting, CP, or SOB. Sánchez in place draining concentrated yellow urine. (-)flatus (-)BM. Has not yet attempted ambulation or PO intake. Last Bowel Movement: 11/01/22 OBJECTIVE: Most Recent Vital Signs: BP: 118 mmHg/70 mmHg (11/01/221524) Pulse: 87 (11/01/221524) Temp: 36.28 C (11/01/221524) Resp: 14 (11/01/221524) SpO2: 97 % (11/01/221524) Vital Signs Last 24 Hours: Systolic BP: Most Recent Systolic BP Av.6 mmHg Min: 99 mmHg Max: 127 mmHg Temperature: Most Recent Temperature Av.3 C Min: 35.89 C Max: 36.72 C Pulse: Pulse Av.9 Min: 61 Max: 107 Respirations: Resp Av.3 Min: 14 Max: 24 SpO2: SpO2 Av.3 % Min: 92 % Max: 100 % In / Out Past 24 Hrs: Intake/Output Summary (Last 24 hours) at 11/01/2022 1710 Last data filed at 11/01/2022 1500 Gross per 24 hour Intake 2150 ml Output 170 ml Net 1980 ml Physical Exam: Constitutional: no acute distress Head/Neck: normal: normocephalic, atraumatic; no masses, tenderness, or adenopathy Eyes: sclera and conjunctiva normal Neck: supple, trachea midline CV: normal rate and rhythm Chest: normal respiratory effort, chest wall normal Abdomen: soft, nondistended, aTTP, incisions dressed with dermabond c/d/i, LLQ JERALD in place drainingdark SS fluid Musculoskeletal: (-) negative Extremities: no clubbing or cyanosis, minimal BLE pitting edema Skin: warm, dry Neuro: alert, GCS 15 LABS: Labs reviewed as indicated below: Recent Results (from the past 12 hour(s)) CBC Collection Time: 11/01/22 5:13 AM Result Value Ref Range WBC 16.36 (H) 4.00 - 10.80 K/uL RBC 3.48 3.85 - 5.15 M/uL HGB 9.8 (L) 12.0 - 15.3 g/dL HCT 32.8 (L) 36.0 - 45.2 % MCV 94.3 81.5 - 97.5 fL MCH 28.2 27.0 - 34.0 pg MCHC 29.9 32.0 - 36.0 g/dL RDW 15.0 11.5 - 15.5 % PLT 402 (H) 140 - 400 K/uL MPV 9.3 6.6 - 11.1 fL nRBCs 0 <=0 /100 WBCs BASIC METABOLIC PANEL Collection Time: 11/01/22 5:13 AM Result Value Ref Range BUN 19 6 - 20 mg/dL Creatinine 0.9 0.5 - 1.0 mg/dL Estimated Glomerular Filtration Rate 67 >=60 mL/min Sodium 136 135 - 146 mmol/L Potassium 4.2 3.5 - 5.1 mmol/L Chloride 102 98 - 107 mmol/L CO2 26 22 - 32 mmol/L Anion Gap 8 7 - 15 mmol/L Glucose 124 (H) 70 - 120 mg/dL Calcium 8.9 8.4 - 10.2 mg/dL GLUCOSE METER, POINT OF CARE Collection Time: 11/01/22 8:27 AM Result Value Ref Range Glucose Meter 126 (H) 70 - 120 mg/dL GLUCOSE METER, POINT OF CARE Collection Time: 11/01/22 11:47 AM Result Value Ref Range Glucose Meter 90 70 - 120 mg/dL GLUCOSE METER, POINT OF CARE Collection Time: 11/01/22 2:06 PM Result Value Ref Range Glucose Meter 162 (H) 70 - 120 mg/dL IMAGING: No imaging results in the last 24 hours IMPRESSION: Principal Problem: Diverticulitis of colon Active Problems: Asthma with severity to be determined HTN, goal below 140/90 Type 2 diabetes mellitus with hemoglobin A1c goal of less than 7.5% ([facility]) HECTOR (generalized anxiety disorder) COPD, group B, 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 ([facility]) Morbid obesity with BMI of 40.0-44.9, adult (HCC) Paroxysmal atrial fibrillation (HCC) Chronic systolic heart failure (HCC) Chronic kidney disease, stage 3a (HCC) Resolved Problems: * No resolved hospital problems. * 81 year old female PMH as above presents for LAR today. PLAN: IVF: isolyte @ 75 mL/hr until reliably tolerating PO DVT/PE ppx: sequential compression devices (SCD's) Analgesia: tylenol ATC, tramadol ATC, oxy 5/10 prn Diet: clears GI ppx: Proton Pump Inhibitor Nausea: zofran Bowel Regimen: n/a Sánchez: Will remain in place until 11/08 Antibiotics: postop cefoxitin x2 doses postop Labs: AM CBC, BMP Drains/Lines: PIV [place]/Sutures: none Activity: OOB ad elia Respiratory: RPDP Home Medications: restart SOLAR POOL HEATING INSTALLER metoprolol, lipitor, combivent, zoloft, albuterol, omeprazole. Interchange incruse ellipta for SOLAR POOL HEATING INSTALLER spiriva and SSI for SOLAR POOL HEATING INSTALLER glimepiride per protocol. Holding vitamins, SOLAR POOL HEATING INSTALLER abx, phenergan, bentyl, probiotic, vicodin, eye drops. Holding SOLAR POOL HEATING INSTALLER lasix/spironolactone Consults Requested: PT/OT postop Dispo: med surg - AROBF Jaylon Ferraro Jr, MD PGY-3, Department of General Surgery 11/01/2022 5:10 PM * Care Plan - Brayden Saunders RN - 11/01/2022 5:06 AM EST Clinical Goal(s): Pt will be free from falls during this shift (10/31/22 2300) Possible barriers to meeting goal(s)/advancing plan of care: Pain, weakness Stability of the patient: Moderately stable - low risk of patient condition declining or worsening Summary regarding today's goal(s): Met: Pt did not fall Recommendations: Continue to monitor and fall precautions * Respiratory Progress Note - Tania Ovalles RRT - 10/31/2022 5:52 PM EST PATIENT DRIVEN PROTOCOL - Respiratory Care Services [address] [address] Name: Nina Harrington Location[place] [facility] [place] [facility] Date: 10/31/2022 Time: 5:54 PM Patient Driven Protocol Summary: Initial evaluation performed. This Treatment Plan and medications will be reviewed by the Primary Care Team for any contraindications. Respiratory Care Treatment Plan Aerosol Therapy Treatment:: Hand Held Nebulizer Tx PRN with Albuterol Sulfate: Unit dose 0.083%. to reduce work of breathing and improve pulmonary gas exchange. Additional Aerosolized Treatments: Inhaler(s) QID with Combivent Respimat: (20mcg Ipratrpium [place] and 100mcg Albuterol) / 1 puff. to reduce work of breathing and improve pulmonary gas exchange. . Pulmonary Volume Expansion Therapy: Incentive Spirometry PRN to prevent or treat alveolar consolidation and atelectasis. . The patient will be re-evaluated: No re-evaluation needed. Indications for treatment met. The Triage Level is: (Assessment Score = 6 -10) Level 4. Triage Level Definitions: Level 1 Severe Respiratory/Airway [...] Medical Record Assessment Clinical Findings Pulmonary Status: 3 - Pulm Impairment (acute or chronic) w/o exacerbation, or 1 - 2 rib fractures Surgical Status: 0 - No Surgical History Chest X-Ray: 0 - Not Performed or performed greater than 3 days ago Assessment Score: 3 Patient Assessment Clinical Findings Respiratory Pattern: 0 - RR 12 - 20; Patient only gets breathless with strenuous exercise. Breath Sounds: 2 - Diminished bilaterally Cough Effectiveness: 0 - Strong non-productive Sputum Production: 0 - No sputum production Level of Activity: 1 - Ambulatory with assist O2 needed to keep SpO2 greater than or equal to 92%: 1 - Oxygen 1-3 LPM or FiO2 less than 35% Assessment Score: 4 Total Assessment Score: 7 Breath Sounds: Inspiratory and expiratory diminished bilaterally.. Cough and Sputum: An effective cough produced no sputum... CXR: n/a. Vital Signs: Resp: 18 (10/31/22 1442) Pulse: 98 (10/31/22 1442) Temp: 36.6 C (97.9 F) (10/31/22 1442) BP: 119/72 (10/31/22 1442) SpO2: 98 % (10/31/22 1442) PFT: Minimal Predicted IC: 0.855 L. Inspiratory capacity: 2.0 L. Primary Service: Surgery Yellow. 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 Prescriptions/Home Medications/Durable Medical Equipment: per patient albuterol prn, combivent prn,Sprivia respimat, 2L day, 4L at night .(patient states she cant take the powder inhalers) documented in this encounter Plan of Treatment Upcoming Encounters Date Type Specialty Care Team Description 11/12/2022 Laboratory Laboratory Processing [place], [facility] [place] [address] [place] [address] Arrived 11/26/2022 Office Visit General Surgery Teresita Padron PA-C [address] [place] [address] 12/23/2022 Office Visit Orthopedics Eliezer Gifford, DO [address] [place] [address] 01/03/2023 Office Visit Cardiology Hammad Lopez, DO [address] [place] [address] 01/07/2023 Office Visit Internal Medicine Marcela Pinto MD [address] [place] [address] Scheduled Orders Name Type Priority Associated Diagnoses Orde r Schedule CT CYSTOGRAM W CONTRAST ONLY Medical Imaging Routine Diverticulitis of colon Expected: 11/08/2022, Expires: 12/06/2023 FLUORO CYSTOGRAM Medical Imaging Routine One Time for 1 Occurrences starting 11/08/2022 until 11/08/2022 Health Maintenance Due Date Last Done Comments [...] Additional history exists GFR - Renal Function 05/11/2023 11/11/2022, 11/10/2022, 11/09/2022, Additional history exists CKD PHOS USE SMARTSET 60148 08/05/202307/14, 02/19/2022, 03/09/2021, Additional history exists DIABETES-FOOT EXAM 10/10/2023 10/10/2022, 0 11/19/2021, 12/21/2020, Additional history exists Depression Screening, Annual for Pts 12 and Over 10/10/2023 10/10/2022 O2 ASSESSMENT COMPLETED IN PAST YEAR FOR COPD 11/01/2023 11/01/2022 CKD HGB USE SMARTSET 52929 11/11/202311/11, 11/11/2022, 11/10/2022, Additional history exists DXA Scan 08/08/2025 08/08/2020, [...] Procedure Name Priority Date/Time Associated Diagnosis Comments DIFFERENTIAL, AUTOMATED Routine 11/11/19 8:10 AM EST BASIC METABOLIC PANEL Routine 11/11/2022 8:10 AM EST CBC WITH WBC DIFFERENTIAL Routine 2022 8:10 AM EST CBC Routine 11/11/2022 8:10 AM EST GLUCOSE METER, POINT OF CARE [facility] 11/11/2022 7:55 AM EST GLUCOSE METER, POINT OF CARE [facility] 11/10/2022 9:20 PM EST GLUCOSE METER, POINT OF CARE [facility] 11/10/2022 4:17 PM EST GLUCOSE METER, POINT OF CARE [facility] 11/10/2022 10:59 AM EST GLUCOSE METER, POINT OF CARE [facility] 11/10/2022 7:16 AM EST BASIC METABOLIC PANEL Routine 11/10/2022 4:20 AM EST CBC Routine 11/10/2022 4:20 AM EST URINALYSIS WITH MICROSCOPIC EXAM Routine 11/09/2022 9:27 PM EST GLUCOSE METER, POINT OF CARE [facility] 11/09/2022 8:59 PM EST GLUCOSE METER, POINT OF CARE [facility] 11/09/2022 5:01 PM EST GLUCOSE METER, POINT OF CARE [facility] 11/09/2022 11:36 AM EST GLUCOSE METER, POINT OF CARE [facility] 11/09/2022 7:13 AM EST BASIC METABOLIC PANEL Routine 11/09/2022 4:05 AM EST CBC Routine 11/09/2022 4:05 AM EST GLUCOSE METER, POINT OF CARE [facility] 11/08/2022 10:35 PM EST GLUCOSE METER, POINT OF CARE [facility] 11/08/2022 4:25 PM EST GLUCOSE METER, POINT OF CARE [facility] 11/08/2022 11:50 AM EST FLUORO CYSTOGRAM Routine 11/08/2022 11:3 5 AM EST GLUCOSE METER, POINT OF CARE [facility] 11/08/2022 7:45 AM EST BASIC METABOLIC PANEL Routine 11/08/2022 5:02 AM EST CBC Routine 11/08/2022 5:02 AM EST GLUCOSE METER, POINT OF CARE [facility] 11/07/2022 9:27 PM EST GLUCOSE METER, POINT OF CARE [facility] 11/07/2022 3:57 PM EST GLUCOSE METER, POINT OF CARE [facility] 11/07/2022 11:16 AM EST GLUCOSE METER, POINT OF CARE [facility] 11/07/2022 7:41 AM EST BASIC METABOLIC PANEL Routine 11/07/2022 3:41 AM EST CBC Routine 11/07/2022 3:41 AM EST GLUCOSE METER, POINT OF CARE [facility] 11/06/2022 8:49 PM EST GLUCOSE METER, POINT OF CARE [facility] 11/06/2022 4:25 PM EST GLUCOSE METER, POINT OF CARE [facility] 11/06/2022 11:41 AM EST GLUCOSE METER, POINT OF CARE [facility] 11/06/2022 7:39 AM EST BASIC METABOLIC PANEL Routine 11/06/2022 4:06 AM EST CBC Routine 11/06/2022 4:06 AM EST GLUCOSE METER, POINT OF CARE [facility] 11/05/2022 8:28 PM EST GLUCOSE METER, POINT OF CARE [facility] 11/05/2022 3:56 PM EST GLUCOSE METER, POINT OF CARE [facility] 11/05/2022 11:23 AM EST GLUCOSE METER, POINT OF CARE [facility] 11/05/2022 7:37 AM EST BASIC METABOLIC PANEL Routine 11/05/2022 5:10 AM EST CBC Routine 11/05/2022 5:10 AM EST GLUCOSE METER, POINT OF CARE [facility] 11/04/2022 9:25 PM EST GLUCOSE METER, POINT OF CARE [facility] 11/04/2022 3:55 PM EST GLUCOSE METER, POINT OF CARE [facility] 11/04/2022 11:56 AM EST GLUCOSE METER, POINT OF CARE [facility] 11/04/2022 7:28 AM EST BASIC METABOLIC PANEL Routine 11/04/2022 4:21 AM EST CBC Routine 11/04/2022 4:21 AM EST GLUCOSE METER, POINT OF CARE [facility] 11/03/2022 9:15 PM EST GLUCOSE METER, POINT OF CARE [facility] 11/03/2022 4:24 PM EST GLUCOSE METER, POINT OF CARE [facility] 11/03/2022 11:46 AM EST GLUCOSE METER, POINT OF CARE [facility] 11/03/2022 7:09 AM EST BASIC METABOLIC PANEL Routine 11/03/2022 3:38 AM EST CBC Routine 11/03/2022 3:38 AM EST GLUCOSE METER, POINT OF CARE [facility] 11/02/2022 9:08 PM EST GLUCOSE METER, POINT OF CARE [facility] 11/02/2022 4:44 PM EST XR CHEST 1 VIEW STAT 11/02/2022 4:41 PM EST GLUCOSE METER, POINT OF CARE [facility] 11/02/2022 11:11 AM EST GLUCOSE METER, POINT OF CARE [facility] 11/02/2022 5:46 AM EST BASIC METABOLIC PANEL Routine 11/02/2022 3:27 AM EST CBC Routine 11/02/2022 3:27 AM EST GLUCOSE METER, POINT OF CARE [facility] 11/01/2022 10:02 PM EST GLUCOSE METER, POINT OF CARE [facility] 11/01/2022 4:03 PM EST GLUCOSE METER, POINT OF CARE [facility] 11/01/2022 2:06 PM EST SURGICAL PATHOLOGY Routine 11/01/2022 12 :20 PM EST Colovesical fistula GLUCOSE METER, POINT OF CARE [facility] 11/01/2022 11:47 AM EST XR INTRA-OP C-ARM CASE Routine 11:04 AM EST CYSTOURETHROSCOPY WITH INSERTION URETERAL STENT DUAL SERVICE 11/01/2022 9:14 AM EST Colovesical fistula LAPAROSCOPIC PARTIAL COLECTOMY WITH COLOPROCTOSTOMY 11/01/2022 9:14 AM EST Colovesical fistula GLUCOSE METER, POINT OF CARE [facility] 11/01/2022 8:27 AM EST BASIC METABOLIC PANEL Routine 11/01/2022 5:13 AM EST CBC Routine 11/01/2022 5:13 AM EST GLUCOSE METER, POINT OF CARE [facility] 11/01/2022 4:51 AM EST GLUCOSE METER, POINT OF CARE [facility] 10/31/2022 11:44 PM EST GLUCOSE METER, POINT OF CARE [facility] 10/31/2022 5:22 PM EST documented in this encounter Results * (ABNORMAL) DIFFERENTIAL, AUTOMATED (11/11/2022 8:10 AM EST) WBC 18.53(H) 4.00 - 10.80 K/uL 11/11/2022 8:49 AM EST [facility] Neutrophils % 56.7 40.0 - 75.0 % 11/11/2022 8:49 AM EST [facility] Lymphocytes % 24.3 18.0 - 42.0 % 11/11/2022 8:49 AM EST [facility] Monocytes % 11.2(H) 1.0 - 11.0 % 11/11/2022 8:49 AM EST [facility] Eosinophils % 4.2 0.0 - 6.0 % 11/11/2022 8:49 AM EST [facility] Basophils % 0.3 0.0 - 2.0 % 11/11/2022 8:49 AM EST [facility] Immature Granulocytes % 3.3(H) 0.0 - 2.0 % 11/11/2022 8:49 AM EST [facility] Absolute Neutrophils 10.50(H) 1.80 - 7.70 K/uL 11/11/2022 8:49 AM EST [facility] Absolute Lymphocytes 4.51 1.00 - 4.80 K/ul 11/11/2022 8:49 AM EST [facility] Absolute Monocytes 2.07(H) 0.00 - 1.10 K/uL 11/11/2022 8:49 AM EST [facility] Absolute Eosinophils 0.78(H) 0.00 - 0.70 K/uL 11/11/2022 8:49 AM EST [facility] Absolute Basophils 0.05 0.00 - 0.20 K/uL 11/11/2022 8:49 AM EST [facility] Absolute Immature Granulocytes 0.62(H) 0.00 - 0.20 K/uL 11/11/2022 8:49 AM EST [facility] Blood Venous blood specimen / Unknown Venipuncture / Unknown 11/11/2022 8:10 AM EST 11/11/2022 8:36 AM EST Chuck Virgen MD LAB BLOOD ORDERABLES Performing Organization Address City/State/[facility] Co de Phone Number [facility] [address] [place] [address] * (ABNORMAL) CBC (11/11/2022 8:10 AM EST) Pathologist [facility] [place] WBC 18.53(H) 4.00 - 10.80 K/uL 11/11/2022 8:49 AM EST [facility] RBC 3.98 3.85 - 5.15 M/uL 11/11/2022 8:49 AM EST [facility] HGB 11.1(L) 12.0 - 15.3 g/dL 11/11/2022 8:49 AM EST [facility] HCT 36.3 36.0 - 45.2 % 11/11/2022 8:49 AM EST [facility] MCV 91.2 81.5 - 97.5 fL 11/11/2022 8:49 AM EST [facility] MCH 27.9 27.0 - 34.0 pg 11/11/2022 8:49 AM EST [facility] MCHC 30.6 32.0 - 36.0 g/dL 11/11/2022 8:49 AM EST [facility] RDW 14.4 11.5 - 15.5 % 11/11/2022 8:49 AM EST [facility] PLT 645(H) 140 - 400 K/uL 11/11/2022 8:49 AM EST [facility] MPV 9.3 6.6 - 11.1 fL 11/11/2022 8:49 AM EST [facility] nRBCs 0 <=0 /100 WBCs 11/11/2022 8:49 AM EST LABORATORY [facility] Blood Venous blood specimen / Unknown Venipuncture / Unknown 11/11/2022 8:10 AM EST 11/11/2022 8:36 AM EST Chuck Virgen MD LAB BLOOD ORDERABLES Performing Organization Address City/State/[facility] Co de Phone Number LABORATORY [facility] [address] [place] [address] * (ABNORMAL) BASIC METABOLIC PANEL (11/11/2022 8:10 AM EST) BUN 36(H) 6 - 20 mg/dL 11/11/2022 9:03 AM EST [facility] Creatinine 1.1(H) 0.5 - 1.0 mg/dL 11/11/2022 9:03 AM EST [facility] Estimated Glomerular Filtration Rate 49(L) >=60 mL/min 11/11/2022 9:03 AM EST [facility] Comment:eGFR is calculated b ased on the CKD-EPI 2020 equation Sodium 133(L) 135 - 146 mmol/L 11/11/2022 9:03 AM EST [facility] Potassium 3.3(L) 3.5 - 5.1 mmol/L 11/11/2022 9:03 AM EST [facility] Chloride 90(L) 98 - 107 mmol/L 11/11/2022 9:03 AM EST [facility] CO2 34(H) 22 - 32 mmol/L 11/11/2022 9:03 AM EST [facility] Anion Gap 9 7 - 15 mmol/L 11/11/2022 9:03 AM EST [facility] Glucose 122(H) 70 - 120 mg/dL 11/11/2022 9:03 AM EST [facility] Calcium 9.4 8.4 - 10.2 mg/dL 11/11/2022 9:03 AM EST LABORATORY C Blood Venous blood specimen / Unknown Venipuncture / Unknown 11/11/2022 8:10 AM EST 11/11/2022 8:37 AM EST Chuck Virgen MD LAB BLOOD ORDERABLES LABORATORY [facility] [address] [place] [address] * GLUCOSE METER, POINT OF CARE (11/11/2022 7:55 AM EST) Glucose Meter 119 70 - 120 mg/dL 11/11/2022 9:00 AM EST [facility] Blood Whole blood specimen / Unknown 11/11/2022 7:55 AM EST 11/11/2022 9:00 AM EST Dionte Snyder MD LAB POINT OF CARE TE ST DOCKED DEVICE UNSOLICITED RESULTS [facility] [facility] [address] [place] [address] * GLUCOSE METER, POINT OF CARE (11/10/2022 9:20 PM EST) Glucose Meter 115 70 - 120 mg/dL 11/11/2022 3:48 AM EST [facility] Blood Whole blood specimen / Unknown 11/10/2022 9:20 PM EST 11/11/2022 3:48 AM EST Dionte Snyder MD LAB POINT OF CARE TE ST DOCKED DEVICE UNSOLICITED RESULTS [facility] [address] [place] [address] * (ABNORMAL) GLUCOSE METER, POINT OF CARE (11/10/2022 4:17 PM EST) Glucose Meter 138(H) 70 - 120 mg/dL 11/10/2022 4:19 PM EST [employer] Blood Whole blood specimen / Unknown 11/10/2022 4:17 PM EST 11/10/2022 4:19 PM EST Dionte Snyder MD LAB POINT OF CARE TE ST DOCKED DEVICE UNSOLICITED RESULTS Performing Organization Address City/[facility]/ZIP Co de Phone Number [facility] [address] [place] [address] * (ABNORMAL) GLUCOSE METER, POINT OF CARE (11/10/2022 10:59 AM EST) Glucose Meter 147(H) 70 - 120 mg/dL 11/10/2022 11:16 AM EST [employer] Blood Whole blood specimen / Unknown 11/10/2022 10:59 AM EST 11/10/2022 11:16 AM EST Dionte Snyder MD LAB POINT OF CARE TE ST DOCKED DEVICE UNSOLICITED RESULTS Performing Organization Address City/[facility]/ZIP Co de Phone Number [facility] [address] [place] [address] * (ABNORMAL) GLUCOSE METER, POINT OF CARE (11/10/2022 7:16 AM EST) Glucose Meter 145(H) 70 - 120 mg/dL 11/10/2022 7:35 AM EST [employer] Blood Whole blood specimen / Unknown 11/10/2022 7:16 AM EST 11/10/2022 7:35 AM EST Dionte Snyder MD LAB POINT OF CARE TE ST DOCKED DEVICE UNSOLICITED RESULTS [facility] [address] [place] [address] * (ABNORMAL) BASIC METABOLIC PANEL (11/10/2022 4:20 AM EST) BUN 32(H) 6 - 20 mg/dL 11/10/2022 5:12 AM EST [facility] Creatinine 1.2(H) 0.5 - 1.0 mg/dL 11/10/2022 5:12 AM EST [facility] Estimated Glomerular Filtration Rate 47(L) >=60 mL/min 11/10/2022 5:12 AM EST [facility] Comment:eGFR is calculated b ased on the CKD-EPI 2020 equation Sodium 130(L) 135 - 146 mmol/L 11/10/2022 5:12 AM EST [facility] Potassium 4.2 3.5 - 5.1 mmol/L 11/10/2022 5:12 AM EST [facility] Chloride 92(L) 98 - 107 mmol/L 11/10/2022 5:12 AM EST [facility] CO2 31 22 - 32 mmol/L 11/10/2022 5:12 AM EST [facility] Anion Gap 7 7 - 15 mmol/L 11/10/2022 5:12 AM EST [facility] Glucose 171(H) 70 - 120 mg/dL 11/10/2022 5:12 AM EST [facility] Calcium 9.5 8.4 - 10.2 mg/dL 11/10/2022 5:12 AM EST [facility] Blood Venous blood specimen / Unknown Venipuncture / Unknown 11/10/2022 4:20 AM EST 11/10/2022 4:49 AM EST Jaylon Ferraro Jr., MD LAB BLOO D ORDERABLES [facility] [address], [place] [id number] * (ABNORMAL) CBC (11/10/2022 4:20 AM EST) WBC 15.57(H) 4.00 - 10.80 K/uL 11/10/2022 5:01 AM EST [facility] RBC 3.22 3.85 - 5.15 M/uL 11/10/2022 5:01 AM EST [facility] HGB 8.9(L) 12.0 - 15.3 g/dL 11/10/2022 5:01 AM EST [facility] HCT 29.5(L) 36.0 - 45.2 % 11/10/2022 5:01 AM EST [facility] MCV 91.6 81.5 - 97.5 fL 11/10/2022 5:01 AM EST [facility] MCH 27.6 27.0 - 34.0 pg 11/10/2022 5:01 AM EST [facility] MCHC 30.2 32.0 - 36.0 g/dL 11/10/2022 5:01 AM EST [facility] RDW 14.4 11.5 - 15.5 % 11/10/2022 5:01 AM EST [facility] PLT 533(H) 140 - 400 K/uL 11/10/2022 5:01 AM EST LABORATORY [facility] MPV 9.3 6.6 - 11.1 fL 11/10/2022 5:01 AM EST LABORATORY [facility] nRBCs 0 <=0 /100 WBCs 11/10/2022 5:01 AM EST LABORATORY [facility] Blood Venous blood specimen / Unknown Venipuncture / Unknown 11/10/2022 4:20 AM EST 11/10/2022 4:49 AM EST Jaylon Ferraro Jr., MD LAB BLOO D ORDERABLES Performing Organization Address City/State/[facility] Co de Phone Number LABORATORY [facility] [address] [place] [address] * (ABNORMAL) URINALYSIS WITH MICROSCOPIC EXAM (11/09/2022 9:27 PM EST) Color, Urine Yellow Colorless, Light Yellow, Yellow, Dark Yellow 11/09/2022 10:07 PM EST [facility] Clarity, Urine Slightly Cloudy(A) Clear 11/09/2022 10:07 PM EST [facility] Glucose, Urine Negative Negative mg/dL 11/09/2022 10:07 PM EST [facility] Bilirubin, Urine Negative Negative 11/09/2022 10:07 PM EST LABORATORY [facility] Ketone, Urine Negative Negative mg/dL 11/09/2022 10:07 PM EST LABORATORY [facility] Specific [place], Urine 1.014 1.003 - 1.030 11/09/2022 10:07 PM EST LAB[facility]ATORY [facility] Blood, Urine Negative Negative 11/09/2022 10:07 PM EST LABORATORY [facility] pH, Urine 5.0 5.0 - 7.5 Units 11/09/2022 10:07 PM EST LAB[facility]ATORY [facility] Protein, Urine Negative Negative mg/dL 11/09/2022 10:07 PM EST LABORATORY [facility] Urobilinogen, Urine Normal Normal mg/dL 11/09/2022 10:07 PM EST LABORATORY [facility] Nitrite, Urine Positive(A) Negative 10:07 PM EST LABORATORY [facility] Esterase, Urine Moderate(A) Negative 11/09/2022 10:07 PM EST LABORATORY [facility] RBC, Urine 0-2 0 - 2 /HPF 11/09/2022 10:07 PM EST LAB[facility]ATORY [facility] WBC, Urine 10-19(A) 0 - 2 /HPF 11/09/2022 10:07 PM EST LABORATORY [facility] Bacteria, Urine 0-25 0 - 25 /HPF 11/09/2022 10:07 PM EST LABORATORY [facility] Squamous Epithelial Cells, Urine Many(A) None /HPF 11/09/2022 10:07 PM EST LABORATORY [facility] Hyaline, Cast, Urine 10-19(A) None /LPF 11/09/2022 10:07 PM EST LAB[facility]ORY [facility] Urine Non-blood Collection / Unknown 11/09/2022 9:27 PM EST 11/09/2022 9:40 PM EST Missy Pinzon MD LAB URINE ORDERABLES LABORATORY [facility] [address] [place] [address] * (ABNORMAL) GLUCOSE METER, POINT OF CARE (11/09/2022 8:59 PM EST) Glucose Meter 183(H) 70 - 120 mg/dL 11/09/2022 9:04 PM EST [facility] Blood Whole blood specimen / Unknown 11/09/2022 8:59 PM EST 11/09/2022 9:04 PM EST Dionte Snyder MD LAB POINT OF CARE TE ST DOCKED DEVICE UNSOLICITED RESULTS [facility] [address] [place] [address] * (ABNORMAL) GLUCOSE METER, POINT OF CARE (11/09/2022 5:01 PM EST) Glucose Meter 178(H) 70 - 120 mg/dL 11/09/2022 5:05 PM EST [facility] Blood Whole blood specimen / Unknown 11/09/2022 5:01 PM EST 11/09/2022 5:05 PM EST Dionte Snyder MD LAB POINT OF CARE TE ST DOCKED DEVICE UNSOLICITED RESULTS Performing Organization Address City/[facility]/ZIP Co de Phone Number [facility] [address] [place] [address] * (ABNORMAL) GLUCOSE METER, POINT OF CARE (11/09/2022 11:36 AM EST) Glucose Meter 174(H) 70 - 120 mg/dL 11/09/2022 12:04 PM EST [facility] Blood Whole blood specimen / Unknown 11/09/2022 11:36 AM EST 11/09/2022 12:04 PM EST Dionte Snyder MD LAB POINT OF CARE TE ST DOCKED DEVICE UNSOLICITED RESULTS [facility] [address] [place] [address] * (ABNORMAL) GLUCOSE METER, POINT OF CARE (11/09/2022 7:13 AM EST) Glucose Meter 178(H) 70 - 120 mg/dL 11/09/2022 7:39 AM EST [facility] Blood Whole blood specimen / Unknown 11/09/2022 7:13 AM EST 11/09/2022 7:39 AM EST Dionte Snyder MD LAB POINT OF CARE TE ST DOCKED DEVICE UNSOLICITED RESULTS [facility] [address] [place] [address] * (ABNORMAL) BASIC METABOLIC PANEL (11/09/2022 4:05 AM EST) BUN 21(H) 6 - 20 mg/dL 11/09/2022 5:01 AM EST [facility] Creatinine 0.9 0.5 - 1.0 mg/dL 11/09/2022 5:01 AM EST [facility] Estimated Glomerular Filtration Rate 67 >=60 mL/min 11/09/2022 5:01 AM EST [facility] Comment:eGFR is calculated b ased on the CKD-EPI 2020 equation Sodium 132(L) 135 - 146 mmol/L 11/09/2022 5:01 AM EST [facility] Potassium 4.1 3.5 - 5.1 mmol/L 11/09/2022 5:01 AM EST [facility] Chloride 94(L) 98 - 107 mmol/L 11/09/2022 5:01 AM EST [facility] CO2 30 22 - 32 mmol/L 11/09/2022 5:01 AM EST [facility] Anion Gap 8 7 - 15 mmol/L 11/09/2022 5:01 AM EST [facility] Glucose 176(H) 70 - 120 mg/dL 11/09/2022 5:01 AM EST [facility] Calcium 9.1 8.4 - 10.2 mg/dL 11/09/2022 5:01 AM EST [facility] Blood Venous blood specimen / Unknown Venipuncture / Unknown 11/09/2022 4:05 AM EST 11/09/2022 4:11 AM EST Jaylon Ferraro Jr., MD LAB BLOO D ORDERABLES [facility] [address] [place] [address] * (ABNORMAL) CBC (11/09/2022 4:05 AM EST) WBC 14.28(H) 4.00 - 10.80 K/uL 11/09/2022 5:16 AM EST [facility] Comment:CBC results may be i naccurate due to low collection volume, recommend recollection. RBC 3.37 3.85 - 5.15 M/uL 11/09/2022 5:16 AM EST LABORATORY [facility] HGB 9.3(L) 12.0 - 15.3 g/dL 11/09/2022 5:16 AM EST [facility] HCT 31.6(L) 36.0 - 45.2 % 11/09/2022 5:16 AM EST [facility] MCV 93.8 81.5 - 97.5 fL 11/09/2022 5:16 AM EST LABORATORY [facility] MCH 27.6 27.0 - 34.0 pg 11/09/2022 5:16 AM EST LABORATORY [facility] MCHC 29.4 32.0 - 36.0 g/dL 11/09/2022 5:16 AM EST LABORATORY [facility] RDW 14.6 11.5 - 15.5 % 11/09/2022 5:16 AM EST LABORATORY [facility] PLT 515(H) 140 - 400 K/uL 11/09/2022 5:16 AM EST LABORATORY [facility] MPV 9.2 6.6 - 11.1 fL 11/09/2022 5:16 AM EST LABORATORY [facility] nRBCs 0 <=0 /100 WBCs 11/09/2022 5:16 AM EST LABORATORY [facility] Blood Venous blood specimen / Unknown Venipuncture / Unknown 11/09/2022 4:05 AM EST 11/09/2022 4:11 AM EST Jaylon Ferraro Jr., MD LAB BLOO D ORDERABLES LABORATORY [facility] [address] [place] [address] * (ABNORMAL) GLUCOSE METER, POINT OF CARE (11/08/2022 10:35 PM EST) Glucose Meter 191(H) 70 - 120 mg/dL 11/08/2022 10:42 PM EST [facility] Blood Whole blood specimen / Unknown 11/08/2022 10:35 PM EST 11/08/2022 10:42 PM EST Dionte Snyder MD LAB POINT OF CARE TE ST DOCKED DEVICE UNSOLICITED RESULTS [facility] [address] [place] [address] * (ABNORMAL) GLUCOSE METER, POINT OF CARE (11/08/2022 4:25 PM EST) Glucose Meter 150(H) 70 - 120 mg/dL 11/08/2022 4:42 PM EST [facility] Blood Whole blood specimen / Unknown 11/08/2022 4:25 PM EST 11/08/2022 4:42 PM EST Dionte Snyder MD LAB POINT OF CARE TE ST DOCKED DEVICE UNSOLICITED RESULTS Performing Organization Address City/[facility]/ZIP Co de Phone Number [facility] [address] [place] [address] * (ABNORMAL) GLUCOSE METER, POINT OF CARE (11/08/2022 11:50 AM EST) Glucose Meter 166(H) 70 - 120 mg/dL 11/09/2022 4:43 AM EST [facility] Blood Whole blood specimen / Unknown 11/08/2022 11:50 AM EST 11/09/2022 4:43 AM EST Dionte Snyder MD LAB POINT OF CARE TE ST DOCKED DEVICE UNSOLICITED RESULTS Performing Organization Address City/[facility]/ZIP Co de Phone Number [facility] [address] [place] [address] * FLUORO CYSTOGRAM (11/08/2022 11:35 AM EST) Anatomical Region Laterality Modality Pelvis, Radio Fluoroscop y 11/08/2022 12:2 5 PM EST Impressions 11/08/2022 12:23 PM EST IMPRESSION Minimal residual irregularity of the bladder dome with no evidence of bladder leak. Narrative 11/08/2022 12:23 PM EST EXAM FLUORO CYSTOGRAM-11/08/2022 11:35 am HISTORY Low pelvic disection eval for bladder injury TECHNIQUE Fluoroscopically-guided cystogram was performed with 300 cc of Conray contrast infused through the indwelling Sánchez catheter. COMPARISON CT 09/09/2022. FINDINGS Initial radiograph of the pelvis shows a surgical drain in the pelvis and degenerative osseous changes. The imaged bowel gas pattern is nonobstructive. The bladder was slowly infused by gravity drip. There was a tiny focal outpouching of the bladder dome that persisted throughout the exam. This can be related to minor postsurgical irregularity, prior colovesical fistula, and/or indentation from the Sánchez catheter, although the Sánchez was protruding more to the right on the current study. No filling defects or extravasation into the pelvis seen. There was no reflux into the ureters. Postvoid image shows a tiny amount of residual contrast in the bladder. Procedure Note Brady Reyes MD - 11/08/2022 EXAM FLUORO CYSTOGRAM-11/08/2022 11:35 am HISTORY Low pelvic disection eval for bladder injury TECHNIQUE Fluoroscopically-guided cystogram was performed with 300 cc of Conraycontrast infused through the indwelling Sánchez catheter. COMPARISON CT 09/09/2022. FINDINGS Initial radiograph of the pelvis shows a surgical drain in the pelvis anddegenerative osseous changes. The imaged bowel gas pattern isnonobstructive. The bladder was slowly infused by gravity drip. There was a tiny focaloutpouching of the bladder dome that persisted throughout the exam. Thiscan be related to minor postsurgical irregularity, prior colovesicalfistula, and/or indentation from the Sánchez catheter, although the Foleywas protruding more to the right on the current study. No filling defectsor extravasation into the pelvis seen. There was no reflux into theureters. Postvoid image shows a tiny amount of residual contrast in the bladder. IMPRESSION IMPRESSION Minimal residual irregularity of the bladder dome with no evidence ofbladder leak. Chuck Lawton MD RAD FLUOROSCOPY * (ABNORMAL) GLUCOSE METER, POINT OF CARE (11/08/2022 7:45 AM EST) Glucose Meter 158(H) 70 - 120 mg/dL 11/08/2022 8:03 AM EST [facility] [facility] Blood Whole blood specimen / Unknown 11/08/2022 7:45 AM EST 11/08/2022 8:03 AM EST Dionte Snyder MD LAB POINT OF CARE TE ST DOCKED DEVICE UNSOLICITED RESULTS [facility] [address] [place] [address] * (ABNORMAL) BASIC METABOLIC PANEL (11/08/2022 5:02 AM EST) BUN 18 6 - 20 mg/dL 11/08/2022 5:47 AM EST [facility] Creatinine 0.8 0.5 - 1.0 mg/dL 11/08/2022 5:47 AM EST [facility] Estimated Glomerular Filtration Rate 76 >=60 mL/min 11/08/2022 5:47 AM EST [facility] Comment:eGFR is calculated b ased on the CKD-EPI 2020 equation Sodium 135 135 - 146 mmol/L 11/08/2022 5:47 AM EST [facility] Potassium 4.5 3.5 - 5.1 mmol/L 11/08/2022 5:47 AM EST [facility] Chloride 97(L) 98 - 107 mmol/L 11/08/2022 5:47 AM EST [facility] CO2 30 22 - 32 mmol/L 11/08/2022 5:47 AM EST [facility] Anion Gap 8 7 - 15 mmol/L 11/08/2022 5:47 AM EST [facility] Glucose 171(H) 70 - 120 mg/dL 11/08/2022 5:47 AM EST [facility] Calcium 9.0 8.4 - 10.2 mg/dL 11/08/2022 5:47 AM EST [facility] Blood Venous blood specimen / Unknown Venipuncture / Unknown 11/08/2022 5:02 AM EST 11/08/2022 5:12 AM EST Jaylon Ferraro Jr., MD LAB BLOO D ORDERABLES Performing Organization Address City/[facility]/ZIP Co de Phone Number LAB[facility]ATORY [facility] [address] [place] [address] * (ABNORMAL) CBC (11/08/2022 5:02 AM EST) [facility] WBC 12.33(H) 4.00 - 10.80 K/uL 11/08/2022 5:27 AM EST [facility] RBC 3.66 3.85 - 5.15 M/uL 11/08/2022 5:27 AM EST [facility] HGB 10.4(L) 12.0 - 15.3 g/dL 11/08/2022 5:27 AM EST [facility] HCT 33.0(L) 36.0 - 45.2 % 11/08/2022 5:27 AM EST [facility] MCV 90.2 81.5 - 97.5 fL 11/08/2022 5:27 AM EST [facility] MCH 28.4 27.0 - 34.0 pg 11/08/2022 5:27 AM EST [facility] MCHC 31.5 32.0 - 36.0 g/dL 11/08/2022 5:27 AM EST [facility] RDW 14.6 11.5 - 15.5 % 11/08/2022 5:27 AM EST [facility] PLT 522(H) 140 - 400 K/uL 11/08/2022 5:27 AM EST [facility] MPV 9.3 6.6 - 11.1 fL 11/08/2022 5:27 AM EST [facility] nRBCs 0 <=0 /100 WBCs 11/08/2022 5:27 AM EST [facility] Blood Venous blood specimen / Unknown Venipuncture / Unknown 11/08/2022 5:02 AM EST 11/08/2022 5:12 AM EST Jaylon Ferraro Jr., MD LAB BLOO D ORDERABLES [facility] [address] [place] [address] * (ABNORMAL) GLUCOSE METER, POINT OF CARE (11/07/2022 9:27 PM EST) Glucose Meter 131(H) 70 - 120 mg/dL 11/07/2022 9:37 PM EST [facility] Blood Whole blood specimen / Unknown 11/07/2022 9:27 PM EST 11/07/2022 9:37 PM EST Dionte Snyder MD LAB POINT OF CARE TE ST DOCKED DEVICE UNSOLICITED RESULTS [facility] [address] [place] [address] * (ABNORMAL) GLUCOSE METER, POINT OF CARE (11/07/2022 3:57 PM EST) Glucose Meter 130(H) 70 - 120 mg/dL 11/07/2022 4:00 PM EST [facility] Blood Whole blood specimen / Unknown 11/07/2022 3:57 PM EST 11/07/2022 4:00 PM EST Dionte Snyder MD LAB POINT OF CARE TE ST DOCKED DEVICE UNSOLICITED RESULTS [facility] [address] [place] [address] * (ABNORMAL) GLUCOSE METER, POINT OF CARE (11/07/2022 11:16 AM EST) Glucose Meter 141(H) 70 - 120 mg/dL 11/07/2022 11:39 AM EST [facility] Blood Whole blood specimen / Unknown 11/07/2022 11:16 AM EST 11/07/2022 11:39 AM EST Dionte Snyder MD LAB POINT OF CARE TE ST DOCKED DEVICE UNSOLICITED RESULTS [facility] [address] [place] [address] * GLUCOSE METER, POINT OF CARE (11/07/2022 7:41 AM EST) Glucose Meter 109 70 - 120 mg/dL 11/07/2022 8:00 AM EST [facility] Blood Whole blood specimen / Unknown 11/07/2022 7:41 AM EST 11/07/2022 8:00 AM EST Dionte Snyder MD LAB POINT OF CARE TE ST DOCKED DEVICE UNSOLICITED RESULTS Performing Organization Address City/State/[facility] Co de Phone Number [facility] [address] [place] [address] * (ABNORMAL) BASIC METABOLIC PANEL (11/07/2022 3:41 AM EST) BUN 26(H) 6 - 20 mg/dL 11/07/2022 4:42 AM EST LABORATORY [facility] Creatinine 0.9 0.5 - 1.0 mg/dL 11/07/2022 4:42 AM EST LABORATORY [facility] Estimated Glomerular Filtration Rate 62 >=60 mL/min 11/07/2022 4:42 AM EST LABORATORY [facility] Comment:eGFR is calculated b ased on the CKD-EPI 2020 equation Sodium 133(L) 135 - 146 mmol/L 11/07/2022 4:42 AM EST LABORATORY [facility] Potassium 3.8 3.5 - 5.1 mmol/L 11/07/2022 4:42 AM EST LABORATORY [facility] Chloride 99 98 - 107 mmol/L 11/07/2022 4:42 AM EST LABORATORY [facility] CO2 28 22 - 32 mmol/L 11/07/2022 4:42 AM EST LABORATORY [facility] Anion Gap 6(L) 7 - 15 mmol/L 11/07/2022 4:42 AM EST LABORATORY [facility] Glucose 113 70 - 120 mg/dL 11/07/2022 4:42 AM EST LABORATORY [facility] Calcium 9.0 8.4 - 10.2 mg/dL 11/07/2022 4:42 AM EST LABORATORY [facility] Blood Venous blood specimen / Unknown Venipuncture / Unknown 11/07/2022 3:41 AM EST 11/07/2022 4:06 AM EST Jaylon Ferraro Jr., MD LAB BLOO D ORDERABLES LABORATORY [facility] [address] [place] [address] * (ABNORMAL) CBC (11/07/2022 3:41 AM EST) [facility] Signature WBC 15.22(H) 4.00 - 10.80 K/uL 11/07/2022 4:32 AM EST LABORATORY [facility] RBC 3.33 3.85 - 5.15 M/uL 11/07/2022 4:32 AM EST LABORATORY [facility] HGB 9.4(L) 12.0 - 15.3 g/dL 11/07/2022 4:32 AM EST LABORATORY [facility] HCT 30.5(L) 36.0 - 45.2 % 11/07/2022 4:32 AM EST LABORATORY [facility] MCV 91.6 81.5 - 97.5 fL 11/07/2022 4:32 AM EST LABORATORY [facility] MCH 28.2 27.0 - 34.0 pg 11/07/2022 4:32 AM EST LABORATORY [facility] MCHC 30.8 32.0 - 36.0 g/dL 11/07/2022 4:32 AM EST LABORATORY [facility] RDW 14.6 11.5 - 15.5 % 11/07/2022 4:32 AM EST LABORATORY [facility] PLT 480(H) 140 - 400 K/uL 11/07/2022 4:32 AM EST LABORATORY [facility] MPV 9.2 6.6 - 11.1 fL 11/07/2022 4:32 AM EST LABORATORY [facility] nRBCs 0 <=0 /100 WBCs 11/07/2022 4:32 AM EST LABORATORY [facility] Blood Venous blood specimen / Unknown Venipuncture / Unknown 11/07/2022 3:41 AM EST 11/07/2022 4:06 AM EST Jaylon Ferraro Jr., MD LAB BLOO D ORDERABLES LABORATORY [facility] [address] [place] [address] * (ABNORMAL) GLUCOSE METER, POINT OF CARE (11/06/2022 8:49 PM EST) Glucose Meter 127(H) 70 - 120 mg/dL 11/06/2022 8:52 PM EST [facility] Blood Whole blood specimen / Unknown 11/06/2022 8:49 PM EST 11/06/2022 8:52 PM EST Dionte Snyder MD LAB POINT OF CARE TE ST DOCKED DEVICE UNSOLICITED RESULTS [facility] [address] [place] [address] * (ABNORMAL) GLUCOSE METER, POINT OF CARE (11/06/2022 4:25 PM EST) Glucose Meter 131(H) 70 - 120 mg/dL 11/06/2022 4:29 PM EST [facility] Blood Whole blood specimen / Unknown 11/06/2022 4:25 PM EST 11/06/2022 4:29 PM EST Dionte Snyder MD LAB POINT OF CARE TE ST DOCKED DEVICE UNSOLICITED RESULTS [address] [address] * (ABNORMAL) GLUCOSE METER, POINT OF CARE (11/06/2022 11:41 AM EST) Glucose Meter 136(H) 70 - 120 mg/dL 11/06/2022 11:45 AM EST [facility] Blood Whole blood specimen / Unknown 11/06/2022 11:41 AM EST 11/06/2022 11:45 AM EST Dionte Snyder MD LAB POINT OF CARE TE ST DOCKED DEVICE UNSOLICITED RESULTS [facility] [address] [place] [address] * (ABNORMAL) GLUCOSE METER, POINT OF CARE (11/06/2022 7:39 AM EST) Glucose Meter 126(H) 70 - 120 mg/dL 11/06/2022 7:42 AM EST [facility] Blood Whole blood specimen / Unknown 11/06/2022 7:39 AM EST 11/06/2022 7:42 AM EST Dionte Snyder MD LAB POINT OF CARE TE ST DOCKED DEVICE UNSOLICITED RESULTS [facility] [address] [place] [address] * (ABNORMAL) BASIC METABOLIC PANEL (11/06/2022 4:06 AM EST) BUN 33(H) 6 - 20 mg/dL 11/06/2022 4:40 AM EST LABORATORY [facility] Creatinine 1.2(H) 0.5 - 1.0 mg/dL 11/06/2022 4:40 AM EST LABORATORY [facility] Estimated Glomerular Filtration Rate 43(L) >=60 mL/min 11/06/2022 4:40 AM EST LABORATORY [facility] Comment:eGFR is calculated b ased on the CKD-EPI 2020 equation Sodium 134(L) 135 - 146 mmol/L 11/06/2022 4:40 AM EST LABORATORY [facility] Potassium 3.6 3.5 - 5.1 mmol/L 11/06/2022 4:40 AM EST LABORATORY [facility] Chloride 99 98 - 107 mmol/L 11/06/2022 4:40 AM EST LABORATORY [facility] CO2 26 22 - 32 mmol/L 11/06/2022 4:40 AM EST LABORATORY [facility] Anion Gap 9 7 - 15 mmol/L 11/06/2022 4:40 AM EST LABORATORY [facility] Glucose 137(H) 70 - 120 mg/dL 11/06/2022 4:40 AM EST LABORATORY [facility] Calcium 9.3 8.4 - 10.2 mg/dL 11/06/2022 4:40 AM EST LABORATORY [facility] Blood Venous blood specimen / Unknown Venipuncture / Unknown 11/06/2022 4:06 AM EST 11/06/2022 4:15 AM EST Jaylon Ferraro Jr., MD LAB BLOO D ORDERABLES LABORATORY [facility] [address] [place] [address] * (ABNORMAL) CBC (11/06/2022 4:06 AM EST) WBC 15.35(H) 4.00 - 10.80 K/uL 11/06/2022 4:24 AM EST LABORATORY [facility] RBC 3.54 3.85 - 5.15 M/uL 11/06/2022 4:24 AM EST LABORATORY [facility] HGB 9.8(L) 12.0 - 15.3 g/dL 11/06/2022 4:24 AM EST LABORATORY [facility] HCT 31.2(L) 36.0 - 45.2 % 11/06/2022 4:24 AM EST LABORATORY [facility] MCV 88.1 81.5 - 97.5 fL 11/06/2022 4:24 AM EST LABORATORY [facility] MCH 27.7 27.0 - 34.0 pg 11/06/2022 4:24 AM EST LABORATORY [facility] MCHC 31.4 32.0 - 36.0 g/dL 11/06/2022 4:24 AM EST LABORATORY [facility] RDW 14.6 11.5 - 15.5 % 11/06/2022 4:24 AM EST LABORATORY [facility] PLT 475(H) 140 - 400 K/uL 11/06/2022 4:24 AM EST LABORATORY [facility] MPV 9.7 6.6 - 11.1 fL 11/06/2022 4:24 AM EST LABORATORY [facility] nRBCs 0 <=0 /100 WBCs 11/06/2022 4:24 AM EST LABORATORY [facility] Blood Venous blood specimen / Unknown Venipuncture / Unknown 11/06/2022 4:06 AM EST 11/06/2022 4:15 AM EST Jaylon Ferraro Jr., MD LAB BLOO D ORDERABLES LABORATORY [facility] [address] [place] [address] * (ABNORMAL) GLUCOSE METER, POINT OF CARE (11/05/2022 8:28 PM EST) Glucose Meter 136(H) 70 - 120 mg/dL 11/05/2022 8:35 PM EST [facility] Blood Whole blood specimen / Unknown 11/05/2022 8:28 PM EST 11/05/2022 8:35 PM EST Dionte Snyder MD LAB POINT OF CARE TE ST DOCKED DEVICE UNSOLICITED RESULTS [facility] [address] [place] [address] * (ABNORMAL) GLUCOSE METER, POINT OF CARE (11/05/2022 3:56 PM EST) Glucose Meter 158(H) 70 - 120 mg/dL 11/05/2022 4:05 PM EST [facility] Blood Whole blood specimen / Unknown 11/05/2022 3:56 PM EST 11/05/2022 4:05 PM EST Dionte Snyder MD LAB POINT OF CARE TE ST DOCKED DEVICE UNSOLICITED RESULTS [facility] [address] [place] [address] * (ABNORMAL) GLUCOSE METER, POINT OF CARE (11/05/2022 11:23 AM EST) Glucose Meter 137(H) 70 - 120 mg/dL 11/05/2022 11:34 AM EST [facility] Blood Whole blood specimen / Unknown 11/05/2022 11:23 AM EST 11/05/2022 11:34 AM EST Dionte Snyder MD LAB POINT OF CARE TE ST DOCKED DEVICE UNSOLICITED RESULTS [facility] [address] [place] [address] * (ABNORMAL) GLUCOSE METER, POINT OF CARE (11/05/2022 7:37 AM EST) Glucose Meter 129(H) 70 - 120 mg/dL 11/05/2022 9:35 AM EST [facility] Blood Whole blood specimen / Unknown 11/05/2022 7:37 AM EST 11/05/2022 9:35 AM EST Dionte Snyder MD LAB POINT OF CARE TE ST DOCKED DEVICE UNSOLICITED RESULTS [facility] [address] [place] [address] * (ABNORMAL) BASIC METABOLIC PANEL (11/05/2022 5:10 AM EST) BUN 27(H) 6 - 20 mg/dL 11/05/2022 6:00 AM EST LABORATORY [facility] Creatinine 1.2(H) 0.5 - 1.0 mg/dL 11/05/2022 6:00 AM EST LABORATORY [facility] Estimated Glomerular Filtration Rate 44(L) >=60 mL/min 11/05/2022 6:00 AM EST LABORATORY [facility] Comment:eGFR is calculated b ased on the CKD-EPI 2020 equation Sodium 138 135 - 146 mmol/L 11/05/2022 6:00 AM EST LABORATORY [facility] Potassium 3.7 3.5 - 5.1 mmol/L 11/05/2022 6:00 AM EST LABORATORY [facility] Chloride 99 98 - 107 mmol/L 11/05/2022 6:00 AM EST LABORATORY [facility] CO2 25 22 - 32 mmol/L 11/05/2022 6:00 AM EST LABORATORY [facility] Anion Gap 14 7 - 15 mmol/L 11/05/2022 6:00 AM EST LABORATORY [facility] Glucose 137(H) 70 - 120 mg/dL 11/05/2022 6:00 AM EST LABORATORY [facility] Calcium 9.5 8.4 - 10.2 mg/dL 11/05/2022 6:00 AM EST LABORATORY [facility] Blood Venous blood specimen / Unknown Venipuncture / Unknown 11/05/2022 5:10 AM EST 11/05/2022 5:22 AM EST Jaylon Ferraro Jr., MD LAB BLOO D ORDERABLES LABORATORY [facility] [address] [place] [address] * (ABNORMAL) CBC (11/05/2022 5:10 AM EST) WBC 17.65(H) 4.00 - 10.80 K/uL 11/05/2022 5:39 AM EST LABORATORY [facility] RBC 3.63 3.85 - 5.15 M/uL 11/05/2022 5:39 AM EST LABORATORY [facility] HGB 10.2(L) 12.0 - 15.3 g/dL 11/05/2022 5:39 AM EST LABORATORY [facility] HCT 33.1(L) 36.0 - 45.2 % 11/05/2022 5:39 AM EST LABORATORY [facility] MCV 91.2 81.5 - 97.5 fL 11/05/2022 5:39 AM EST LABORATORY [facility] MCH 28.1 27.0 - 34.0 pg 11/05/2022 5:39 AM EST LABORATORY [facility] MCHC 30.8 32.0 - 36.0 g/dL 11/05/2022 5:39 AM EST LABORATORY [facility] RDW 14.7 11.5 - 15.5 % 11/05/2022 5:39 AM EST LABORATORY [facility] PLT 464(H) 140 - 400 K/uL 11/05/2022 5:39 AM EST LABORATORY [facility] MPV 9.4 6.6 - 11.1 fL 11/05/2022 5:39 AM EST LABORATORY GM nRBCs 0 <=0 /100 WBCs 11/05/2022 5:39 AM EST LABORATORY [facility] Blood Venous blood specimen / Unknown Venipuncture / Unknown 11/05/2022 5:10 AM EST 11/05/2022 5:22 AM EST Jaylon Ferraro Jr., MD LAB BLOO D ORDERABLES LABORATORY [facility] [address] [place] [address] * (ABNORMAL) GLUCOSE METER, POINT OF CARE (11/04/2022 9:25 PM EST) Glucose Meter 123(H) 70 - 120 mg/dL 11/05/2022 5:56 AM EST [facility] Blood Whole blood specimen / Unknown 11/04/2022 9:25 PM EST 11/05/2022 5:56 AM EST Dionte Snyder MD LAB POINT OF CARE TE ST DOCKED DEVICE UNSOLICITED RESULTS [facility] [address] [place] [address] * (ABNORMAL) GLUCOSE METER, POINT OF CARE (11/04/2022 3:55 PM EST) Glucose Meter 130(H) 70 - 120 mg/dL 11/04/2022 4:07 PM EST [facility] Blood Whole blood specimen / Unknown 11/04/2022 3:55 PM EST 11/04/2022 4:07 PM EST Dionte Snyder MD LAB POINT OF CARE TE ST DOCKED DEVICE UNSOLICITED RESULTS [facility] [address] [place] [address] * (ABNORMAL) GLUCOSE METER, POINT OF CARE (11/04/2022 11:56 AM EST) Glucose Meter 147(H) 70 - 120 mg/dL 11/04/2022 12:03 PM EST [facility] Blood Whole blood specimen / Unknown 11/04/2022 11:56 AM EST 11/04/2022 12:03 PM EST Dionte Snyder MD LAB POINT OF CARE TE ST DOCKED DEVICE UNSOLICITED RESULTS [facility] [address] [place] [address] * (ABNORMAL) GLUCOSE METER, POINT OF CARE (11/04/2022 7:28 AM EST) Glucose Meter 131(H) 70 - 120 mg/dL 11/04/2022 7:33 AM EST [facility] Blood Whole blood specimen / Unknown 11/04/2022 7:28 AM EST 11/04/2022 7:33 AM EST Dionte Snyder MD LAB POINT OF CARE TE ST DOCKED DEVICE UNSOLICITED RESULTS [facility] [address] [place] [address] * (ABNORMAL) BASIC METABOLIC PANEL (11/04/2022 4:21 AM EST) BUN 26(H) 6 - 20 mg/dL 11/04/2022 5:11 AM EST LABORATORY [facility] Creatinine 1.3(H) 0.5 - 1.0 mg/dL 11/04/2022 5:11 AM EST LABORATORY [facility] Estimated Glomerular Filtration Rate 42(L) >=60 mL/min 11/04/2022 5:11 AM EST LABORATORY [facility] Comment:eGFR is calculated b ased on the CKD-EPI 2020 equation Sodium 129(L) 135 - 146 mmol/L 11/04/2022 5:11 AM EST LABORATORY [facility] Potassium 3.9 3.5 - 5.1 mmol/L 11/04/2022 5:11 AM EST LABORATORY [facility] Chloride 95(L) 98 - 107 mmol/L 11/04/2022 5:11 AM EST LABORATORY [facility] CO2 24 22 - 32 mmol/L 11/04/2022 5:11 AM EST LABORATORY [facility] Anion Gap 10 7 - 15 mmol/L 11/04/2022 5:11 AM EST LABORATORY [facility] Glucose 132(H) 70 - 120 mg/dL 11/04/2022 5:11 AM EST LABORATORY [facility] Calcium 9.2 8.4 - 10.2 mg/dL 11/04/2022 5:11 AM EST LABORATORY [facility] Blood Venous blood specimen / Unknown Venipuncture / Unknown 11/04/2022 4:21 AM EST 11/04/2022 4:41 AM EST Jaylon Ferraro Jr., MD LAB BLOO D ORDERABLES LABORATORY [facility] [address] [place] [address] * (ABNORMAL) CBC (11/04/2022 4:21 AM EST) WBC 19.15(H) 4.00 - 10.80 K/uL 11/04/2022 4:55 AM EST LABORATORY [facility] RBC 3.54 3.85 - 5.15 M/uL 11/04/2022 4:55 AM EST LABORATORY [facility] HGB 10.1(L) 12.0 - 15.3 g/dL 11/04/2022 4:55 AM EST LABORATORY [facility] HCT 33.0(L) 36.0 - 45.2 % 11/04/2022 4:55 AM EST LABORATORY [facility] MCV 93.2 81.5 - 97.5 fL 11/04/2022 4:55 AM EST LABORATORY [facility] MCH 28.5 27.0 - 34.0 pg 11/04/2022 4:55 AM EST LABORATORY [facility] MCHC 30.6 32.0 - 36.0 g/dL 11/04/2022 4:55 AM EST LABORATORY [facility] RDW 14.9 11.5 - 15.5 % 11/04/2022 4:55 AM EST LABORATORY [facility] PLT 397 140 - 400 K/uL 11/04/2022 4:55 AM EST LABORATORY [facility] MPV 9.5 6.6 - 11.1 fL 11/04/2022 4:55 AM EST LABORATORY [facility] nRBCs 0 <=0 /100 WBCs 11/04/2022 4:55 AM EST LABORATORY [facility] Blood Venous blood specimen / Unknown Venipuncture / Unknown 11/04/2022 4:21 AM EST 11/04/2022 4:41 AM EST Jaylon Ferraro Jr., MD LAB BLOO D ORDERABLES LABORATORY [facility] [address] [place] [address] * GLUCOSE METER, POINT OF CARE (11/03/2022 9:15 PM EST) Glucose Meter 119 70 - 120 mg/dL 11/04/2022 11:39 AM EST [facility] Blood Whole blood specimen / Unknown 11/03/2022 9:15 PM EST 11/04/2022 11:39 AM EST Dionte Snyder MD LAB POINT OF CARE TE ST DOCKED DEVICE UNSOLICITED RESULTS [facility] [address] [place] [address] * (ABNORMAL) GLUCOSE METER, POINT OF CARE (11/03/2022 4:24 PM EST) Glucose Meter 123(H) 70 - 120 mg/dL 11/03/2022 4:40 PM EST [facility] Blood Whole blood specimen / Unknown 11/03/2022 4:24 PM EST 11/03/2022 4:39 PM EST Dionte Snyder MD LAB POINT OF CARE TE ST DOCKED DEVICE UNSOLICITED RESULTS [facility] [address] [place] [address] * (ABNORMAL) GLUCOSE METER, POINT OF CARE (11/03/2022 11:46 AM EST) Glucose Meter 132(H) 70 - 120 mg/dL 11/03/2022 2:44 PM EST [facility] Blood Whole blood specimen / Unknown 11/03/2022 11:46 AM EST 11/03/2022 2:44 PM EST Dionte Snyder MD LAB POINT OF CARE TE ST DOCKED DEVICE UNSOLICITED RESULTS [facility] [address] [place] [address] * GLUCOSE METER, POINT OF CARE (11/03/2022 7:09 AM EST) Glucose Meter 104 70 - 120 mg/dL 11/03/2022 7:23 AM EST [facility] Blood Whole blood specimen / Unknown 11/03/2022 7:09 AM EST 11/03/2022 7:23 AM EST Dionte Snyder MD LAB POINT OF CARE TE ST DOCKED DEVICE UNSOLICITED RESULTS [facility] [address] [place] [address] * (ABNORMAL) BASIC METABOLIC PANEL (11/03/2022 3:38 AM EST) BUN 20 6 - 20 mg/dL 11/03/2022 4:39 AM EST LABORATORY [facility] Creatinine 1.1(H) 0.5 - 1.0 mg/dL 11/03/2022 4:39 AM EST LABORATORY [facility] Estimated Glomerular Filtration Rate 50(L) >=60 mL/min 11/03/2022 4:39 AM EST LABORATORY [facility] Comment:eGFR is calculated b ased on the CKD-EPI 2020 equation Sodium 134(L) 135 - 146 mmol/L 11/03/2022 4:39 AM EST LABORATORY [facility] Potassium 3.5 3.5 - 5.1 mmol/L 11/03/2022 4:39 AM EST LABORATORY [facility] Chloride 101 98 - 107 mmol/L 11/03/2022 4:39 AM EST LABORATORY [facility] CO2 25 22 - 32 mmol/L 11/03/2022 4:39 AM EST LABORATORY [facility] Anion Gap 8 7 - 15 mmol/L 11/03/2022 4:39 AM EST LABORATORY [facility] Glucose 99 70 - 120 mg/dL 11/03/2022 4:39 AM EST LABORATORY [facility] Calcium 8.4 8.4 - 10.2 mg/dL 11/03/2022 4:39 AM EST LABORATORY [facility] Blood Venous blood specimen / Unknown Venipuncture / Unknown 11/03/2022 3:38 AM EST 11/03/2022 3:48 AM EST Jaylon Ferraro Jr., MD LAB BLOO D ORDERABLES LABORATORY [facility] [address] [place] [address] * (ABNORMAL) CBC (11/03/2022 3:38 AM EST) WBC 21.28(H) 4.00 - 10.80 K/uL 11/03/2022 4:21 AM EST LABORATORY [facility] RBC 3.41 3.85 - 5.15 M/uL 11/03/2022 4:21 AM EST LABORATORY [facility] HGB 9.8(L) 12.0 - 15.3 g/dL 11/03/2022 4:21 AM EST LABORATORY [facility] HCT 32.6(L) 36.0 - 45.2 % 11/03/2022 4:21 AM EST LABORATORY [facility] MCV 95.6 81.5 - 97.5 fL 11/03/2022 4:21 AM EST LABORATORY [facility] MCH 28.7 27.0 - 34.0 pg 11/03/2022 4:21 AM EST LABORATORY [facility] MCHC 30.1 32.0 - 36.0 g/dL 11/03/2022 4:21 AM EST LABORATORY [facility] RDW 15.2 11.5 - 15.5 % 11/03/2022 4:21 AM EST LABORATORY [facility] PLT 356 140 - 400 K/uL 11/03/2022 4:21 AM EST LABORATORY [facility] MPV 9.6 6.6 - 11.1 fL 11/03/2022 4:21 AM EST LABORATORY [facility] nRBCs 0 <=0 /100 WBCs 11/03/2022 4:21 AM EST LABORATORY [facility] Blood Venous blood specimen / Unknown Venipuncture / Unknown 11/03/2022 3:38 AM EST 11/03/2022 3:48 AM EST Jaylon Ferraro Jr., MD LAB BLOO D ORDERABLES Performing Organization Address City/State/[facility] Co de Phone Number LABORATORY [facility] [address] [place] [address] * GLUCOSE METER, POINT OF CARE (11/02/2022 9:08 PM EST) Glucose Meter 115 70 - 120 mg/dL 11/03/2022 2:01 AM EST [facility] Blood Whole blood specimen / Unknown 11/02/2022 9:08 PM EST 11/03/2022 2:01 AM EST Dionte Snyder MD LAB POINT OF CARE TE ST DOCKED DEVICE UNSOLICITED RESULTS [facility] [address] [place] [address] * GLUCOSE METER, POINT OF CARE (11/02/2022 4:44 PM EST) [facility] Signature Glucose Meter 119 70 - 120 mg/dL 11/02/2022 4:47 PM EST [facility] Blood Whole blood specimen / Unknown 11/02/2022 4:44 PM EST 11/02/2022 4:47 PM EST Dionte Snyder MD LAB POINT OF CARE TE ST DOCKED DEVICE UNSOLICITED RESULTS Performing Organization Address City/[facility]/ZIP Co de Phone Number [address] [address] * XR CHEST 1 VIEW (11/02/2022 4:41 PM EST) Anatomical Region Laterality Modality Chest Computed Radiogr aphy 11/02/2022 5:30 PM EST Impressions 11/02/2022 7:23 PM EST IMPRESSION No evidence of acute cardiopulmonary disease. Opacity in the left base may represent subsegmental atelectasis. Recommend follow-up examination for further evaluation I have personally reviewed this examination and agree with the resident/fellow physician's interpretation. Narrative 11/02/2022 7:23 PM EST EXAM XR CHEST 1 VIEW-11/02/2022 4:41 pm HISTORY eval fluid status COMPARISON Chest radiograph dated 07/26/2022. TECHNIQUE Single portable frontal view of the chest. FINDINGS Lines/Tubes: Interval removal of right-sided PICC line. Closure device overlies the left cardiac silhouette likely left atrial exclusion device Lungs/Pleura: Left lower lobe linear density, favor subsegmental atelectasis. Bibasilar atelectasis/scarring. No focal consolidation. No discernible pleural effusion or pneumothorax. Heart/Mediastinum: Unchanged cardiomediastinal silhouette. Bones/Soft Tissues: Degenerative changes of the spine. Upper Abdomen: Visualized portions are unremarkable. Procedure Note Skyla Matute MD - 11/02/2022 EXAM XR CHEST 1 VIEW-11/02/2022 4:41 pm HISTORY eval fluid status COMPARISON Chest radiograph dated 07/26/2022. TECHNIQUE Single portable frontal view of the chest. FINDINGS Lines/Tubes: Interval removal of right-sided PICC line. Closure deviceoverlies the left cardiac silhouette likely left atrial exclusion device Lungs/Pleura: Left lower lobe linear density, favor subsegmentalatelectasis. Bibasilar atelectasis/scarring. No focal consolidation. Nodiscernible pleural effusion or pneumothorax. Heart/Mediastinum: Unchanged cardiomediastinal silhouette. Bones/Soft Tissues: Degenerative changes of the spine. Upper Abdomen: Visualized portions are unremarkable. IMPRESSION IMPRESSION No evidence of acute cardiopulmonary disease. Opacity in the left base may represent subsegmental atelectasis.Recommend follow-up examination for further evaluation I have personally reviewed this examination and agree with the resident/fellow physician's interpretation. Shaila Gonzalez DO RADIOLOGY (RAD GENERAL) * (ABNORMAL) GLUCOSE METER, POINT OF CARE (11/02/2022 11:11 AM EST) Glucose Meter 146(H) 70 - 120 mg/dL 11/02/2022 11:35 AM EST [facility] [email or web address] [facility] Blood Whole blood specimen / Unknown 11/02/2022 11:11 AM EST 11/02/2022 11:35 AM EST Dionte Snyder MD LAB POINT OF CARE TE ST DOCKED DEVICE UNSOLICITED RESULTS [facility] [address] [place] [address] * (ABNORMAL) GLUCOSE METER, POINT OF CARE (11/02/2022 5:46 AM EST) Glucose Meter 152(H) 70 - 120 mg/dL 11/02/2022 5:52 AM EST [facility] Blood Whole blood specimen / Unknown 11/02/2022 5:46 AM EST 11/02/2022 5:52 AM EST Dionte Snyder MD LAB POINT OF CARE TE ST DOCKED DEVICE UNSOLICITED RESULTS [facility] [address] [place] [address] * (ABNORMAL) BASIC METABOLIC PANEL (11/02/2022 3:27 AM EST) BUN 15 6 - 20 mg/dL 11/02/2022 4:10 AM EST LABORATORY [facility] Creatinine 0.9 0.5 - 1.0 mg/dL 11/02/2022 4:10 AM EST LABORATORY [facility] Estimated Glomerular Filtration Rate 65 >=60 mL/min 11/02/2022 4:10 AM EST LABORATORY [facility] Comment:eGFR is calculated b ased on the CKD-EPI 2020 equation Sodium 138 135 - 146 mmol/L 11/02/2022 4:10 AM EST LABORATORY [facility] Potassium 3.9 3.5 - 5.1 mmol/L 11/02/2022 4:10 AM EST LABORATORY [facility] Chloride 103 98 - 107 mmol/L 11/02/2022 4:10 AM EST LABORATORY [facility] CO2 23 22 - 32 mmol/L 11/02/2022 4:10 AM EST LABORATORY [facility] Anion Gap 12 7 - 15 mmol/L 11/02/2022 4:10 AM EST LABORATORY [facility] Glucose 149(H) 70 - 120 mg/dL 11/02/2022 4:10 AM EST LABORATORY [facility] Calcium 8.9 8.4 - 10.2 mg/dL 11/02/2022 4:10 AM EST LABORATORY [facility] Blood Venous blood specimen / Unknown Venipuncture / Unknown 11/02/2022 3:27 AM EST 11/02/2022 3:43 AM EST aJylon Ferraro Jr., MD LAB BLOO D ORDERABLES LABORATORY [facility] [address] [place] [address] * (ABNORMAL) CBC (11/02/2022 3:27 AM EST) WBC 22.95(H) 4.00 - 10.80 K/uL 11/02/2022 3:56 AM EST LABORATORY [facility] RBC 3.85 3.85 - 5.15 M/uL 11/02/2022 3:56 AM EST LABORATORY [facility] HGB 10.9(L) 12.0 - 15.3 g/dL 11/02/2022 3:56 AM EST LABORATORY [facility] HCT 36.4 36.0 - 45.2 % 11/02/2022 3:56 AM EST LABORATORY [facility] MCV 94.5 81.5 - 97.5 fL 11/02/2022 3:56 AM EST LABORATORY [facility] MCH 28.3 27.0 - 34.0 pg 11/02/2022 3:56 AM EST LABORATORY [facility] MCHC 29.9 32.0 - 36.0 g/dL 11/02/2022 3:56 AM EST LABORATORY [facility] RDW 14.9 11.5 - 15.5 % 11/02/2022 3:56 AM EST LABORATORY [facility] PLT 413(H) 140 - 400 K/uL 11/02/2022 3:56 AM EST LABORATORY [facility] MPV 9.5 6.6 - 11.1 fL 11/02/2022 3:56 AM EST LABORATORY [facility] nRBCs 0 <=0 /100 WBCs 11/02/2022 3:56 AM EST LABORATORY [facility] Blood Venous blood specimen / Unknown Venipuncture / Unknown 11/02/2022 3:27 AM EST 11/02/2022 3:43 AM EST Jaylon Ferraro Jr., MD LAB BLOO D ORDERABLES Performing Organization Address City/State/[facility] Co de Phone Number LABORATORY [facility] [address] [place] [address] * (ABNORMAL) GLUCOSE METER, POINT OF CARE (11/01/2022 10:02 PM EST) Glucose Meter 141(H) 70 - 120 mg/dL 11/01/2022 11:30 PM EST [facility] Blood Whole blood specimen / Unknown 11/01/2022 10:02 PM EST 11/01/2022 11:30 PM EST Dionte Snyder MD LAB POINT OF CARE TE ST DOCKED DEVICE UNSOLICITED RESULTS [facility] [address] [place] [address] * (ABNORMAL) GLUCOSE METER, POINT OF CARE (11/01/2022 4:03 PM EST) Glucose Meter 146(H) 70 - 120 mg/dL 11/01/2022 11:29 PM EST [employer] Blood Whole blood specimen / Unknown 11/01/2022 4:03 PM EST 11/01/2022 11:29 PM EST Dionte Snyder MD LAB POINT OF CARE TE ST DOCKED DEVICE UNSOLICITED RESULTS Performing Organization Address City/[facility]/ZIP Co de Phone Number [facility] [address] [place] [address] * (ABNORMAL) GLUCOSE METER, POINT OF CARE (11/01/2022 2:06 PM EST) Glucose Meter 162(H) 70 - 120 mg/dL 11/01/2022 2:10 PM EST [employer] Blood Whole blood specimen / Unknown 11/01/2022 2:06 PM EST 11/01/2022 2:10 PM EST Dionte Snyder MD LAB POINT OF CARE TE ST DOCKED DEVICE UNSOLICITED RESULTS [facility] [address] [place] [address] * SURGICAL PATHOLOGY (11/01/2022 12:20 PM EST) Final Diagnosis A. Colon, sigmoid and upper rectum, resection: Diverticulitis in a colonic tissue wall with Diverticular disease. Extensive serosal fibrous adhesions Resection margins are viable and uninvolved. One (1) benign lymph node identified. B. Anastomotic rings, resection: Anastomotic ring showing focal active colitis and submucosal abscess. 11/06/2022 11:48 AM EST LABORATORY [facility] Gross Description A. Colon, Sigmoid. Received fresh with a container labeled with "Nina Harrington", "[id number]" and "1940" and " sigmoid, upper rectum". The specimen consists of an unopened, unoriented portion of large bowel measuring 25.0 x 9.5 x 7.5 cm. One bowel margin is stapled. The bowel serosal surface is burgess-pink, congested with a central area of adhesion of the mesenteric tissue with hemorrhage and congestion and fibropurulent exudate and a defect with exposure into the underlying bowel mucosa. The bowel is opened and corresponding to the area of adhesions, the bowel is obstructed greater than 90%. The bowel mucosa is burgess-pink, congested, raised and edematous in this area. There are no obvious gross mucosal lesions identified. The specimen is serially sectioned and reveals multiple diverticula, with some dilated with a diameter of 2.8 cm which are filled with fecal material and have an abscessed appearance. The wall is uniformly thickened corresponding to the diverticula and at the area of obstruction with the largest area of wall thickening measuring 3.5 cm. Finance Vice President sections are submitted. A photograph is taken. Summary of sections: A1 non stapled bowel margin, A2 stapled bowel margin, A3-A4 sections of the adherent area of bowel and mesenteric tissue, A5-A8 additional random sections of bowel, including diverticula. B. Colon, Sigmoid. Colon, resection margin (donut) Received fresh with a container labeled with "Nina Harrington", "[id number]" and "1940" and " anastomotic rings". The specimen consists of 2, undesignated portions of burgess-pink, annular bowel ranging in size from 2.0-2.5 cm in greatest dimension. There are surgical sutures and deann present. The bowel mucosal surfaces are burgess-pink, congested and smooth and glistening and there are no gross lesions identified. A retail field representative section of each portion of bowel is submitted in cassette B1. Grossed by: KYRIE 11/06/2022 11:48 AM EST LABORATORY [facility] Microscopic Description A to B: Microscopic examination is performed. 11/06/2022 11:48 AM EST LABORATORY [facility] Sign Out Location Pathologist sign out performed at [facility] ([facility]), [address] [place] [id number]. 11/06/2022 11:48 AM EST LABORATORY [facility] Photographic images and diagrams represent goetz findings in this case; they are not intended to replace a complete review of the final diagnostic report. The following statement applies to Flow Cytometry, Histology, In situ Hybridization Assays and Molecular Genetics. This test was developed and performed at [facility] and its performance characteristics determined by [facility]. It has not been cleared or approved by the U.S. Food and Drug Administration. The FDA has determined that such clearance or approval is not necessary. This test is used for clinical purposes. It should not be regarded as investigational or for research. Special stains, including histochemical stains, and studies using immunologic and ALY methodology (where applicable) are performed with appropriate positive and negative control reactions. 11/06/2022 11:48 AM EST LAB[facility]ATORY [facility] Tissue Specimen from colon obtained by sigmoidectomy / Unknown 11/01/2022 12:20 PM EST 11/01/2022 3:09 PM EST Specimen from wound (specimen) Specimen from colon obtained by sigmoidectomy / Unknown 11/01/2022 12:42 PM EST 11/01/2022 3:09 PM EST Dionte Snyder MD LAB PATHOLOGY ORDERA BLES [facility] [address] [place] [address] * GLUCOSE METER, POINT OF CARE (11/01/2022 11:47 AM EST) Glucose Meter 90 70 - 120 mg/dL 11/01/2022 2:10 PM EST [facility] Blood Whole blood specimen / Unknown 11/01/2022 11:47 AM EST 11/01/2022 2:10 PM EST Dionte Snyder MD LAB POINT OF CARE TE ST DOCKED DEVICE UNSOLICITED RESULTS [facility] [address] [place] [address] * XR INTRA-OP C-ARM CASE (11/01/2022 11:04 AM EST) Narrative Scheduling, Silent - 11/01/2022 11:04 AM EST This procedure will not be read by a Radiologist. Please see operative note. Saeed Flores MD RADIOLOGY (RAD GENER AL) * (ABNORMAL) GLUCOSE METER, POINT OF CARE (11/01/2022 8:27 AM EST) Glucose Meter 126(H) 70 - 120 mg/dL 11/01/2022 8:30 AM EST [facility] Blood Whole blood specimen / Unknown 11/01/2022 8:27 AM EST 11/01/2022 8:30 AM EST Dionte Snyder MD LAB POINT OF CARE TE ST DOCKED DEVICE UNSOLICITED RESULTS Performing Organization Address City/[facility]/ZIP Co de Phone Number [facility] [address] [place] [address] * (ABNORMAL) BASIC METABOLIC PANEL (11/01/2022 5:13 AM EST) BUN 19 6 - 20 mg/dL 11/01/2022 5:51 AM EST LAB[facility]AT[facility] Creatinine 0.9 0.5 - 1.0 mg/dL 11/01/2022 5:51 AM EST [facility] Estimated Glomerular Filtration Rate 67 >=60 mL/min 11/01/2022 5:51 AM EST LAB[facility]AT[facility] Comment:eGFR is calculated b ased on the CKD-EPI 2020 equation Sodium 136 135 - 146 mmol/L 11/01/2022 5:51 AM EST [facility] Potassium 4.2 3.5 - 5.1 mmol/L 11/01/2022 5:51 AM EST [facility] Chloride 102 98 - 107 mmol/L 11/01/2022 5:51 AM EST [facility] CO2 26 22 - 32 mmol/L 11/01/2022 5:51 AM EST [facility] Anion Gap 8 7 - 15 mmol/L 11/01/2022 5:51 AM EST LABORATORY [facility] Glucose 124(H) 70 - 120 mg/dL 11/01/2022 5:51 AM EST [facility] Calcium 8.9 8.4 - 10.2 mg/dL 11/01/2022 5:51 AM EST LABORATORY [facility] Blood Venous blood specimen / Unknown Venipuncture / Unknown 11/01/2022 5:13 AM EST 11/01/2022 5:19 AM EST Jaylon Ferraro Jr., MD LAB BLOO D ORDERABLES [facility] [address] [place] [address] * (ABNORMAL) CBC (11/01/2022 5:13 AM EST) WBC 16.36(H) 4.00 - 10.80 K/uL 11/01/2022 5:34 AM EST [facility] RBC 3.48 3.85 - 5.15 M/uL 11/01/2022 5:34 AM EST [facility] HGB 9.8(L) 12.0 - 15.3 g/dL 11/01/2022 5:34 AM EST [facility] HCT 32.8(L) 36.0 - 45.2 % 11/01/2022 5:34 AM EST [facility] MCV 94.3 81.5 - 97.5 fL 11/01/2022 5:34 AM EST LAB[facility] MCH 28.2 27.0 - 34.0 pg 11/01/2022 5:34 AM EST [facility] MCHC 29.9 32.0 - 36.0 g/dL 11/01/2022 5:34 AM EST [facility] RDW 15.0 11.5 - 15.5 % 11/01/2022 5:34 AM EST [facility] PLT 402(H) 140 - 400 K/uL 11/01/2022 5:34 AM EST [facility] MPV 9.3 6.6 - 11.1 fL 11/01/2022 5:34 AM EST [facility] nRBCs 0 <=0 /100 WBCs 11/01/2022 5:34 AM EST [facility] Blood Venous blood specimen / Unknown Venipuncture / Unknown 11/01/2022 5:13 AM EST 11/01/2022 5:19 AM EST Jaylon Ferraro Jr., MD LAB BLOO D ORDERABLES LAB[facility] [address] [place] [address] * GLUCOSE METER, POINT OF CARE (11/01/2022 4:51 AM EST) Glucose Meter 97 70 - 120 mg/dL 11/01/2022 4:53 AM EST [facility] Blood Whole blood specimen / Unknown 11/01/2022 4:51 AM EST 11/01/2022 4:53 AM EST Dionte Snyder MD LAB POINT OF CARE TE ST DOCKED DEVICE UNSOLICITED RESULTS Performing Organization Address City/[facility]/ZIP Co de Phone Number [facility] [address] [place] [address] * GLUCOSE METER, POINT OF CARE (10/31/2022 11:44 PM EST) Glucose Meter 120 70 - 120 mg/dL 10/31/2022 11:48 PM EST [facility] Blood Whole blood specimen / Unknown 10/31/2022 11:44 PM EST 10/31/2022 11:48 PM EST Dionte Snyder MD LAB POINT OF CARE TE ST DOCKED DEVICE UNSOLICITED RESULTS [facility] [address] [place] [address] * (ABNORMAL) GLUCOSE METER, POINT OF CARE (10/31/2022 5:22 PM EST) Glucose Meter 146(H) 70 - 120 mg/dL 10/31/2022 5:27 PM EST [facility] Blood Whole blood specimen / Unknown 10/31/2022 5:22 PM EST 10/31/2022 5:27 PM EST Dionte Snyder MD LAB POINT OF CARE TE ST DOCKED DEVICE UNSOLICITED RESULTS [facility] [address] [place] [address] documented in this encounter Visit Diagnoses Diagnosis Diverticulitis of colon- Primary Diverticulitis of colon (without mention of hemorrhage) Diverticulitis Diverticulitis of colon (without mention of hemorrhage) Colovesical fistula Intestinovesical fistula Diverticulitis of colon Diverticulitis of colon (without mention of hemorrhage) Asthma with severity to be determined Chronic kidney disease, stage 3a (HCC) Chronic systolic heart failure (HCC) Chronic systolic heart failure COPD, group B, 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 ([facility]) HECTOR (generalized anxiety disorder) Generalized anxiety disorder HTN, goal below 140/90 Unspecified essential hypertension Morbid obesity with BMI of 40.0-44.9, adult ([facility]) Morbid obesity Paroxysmal atrial fibrillation (HCC) Atrial fibrillation Type 2 diabetes mellitus with hemoglobin A1c goal of less than 7.5% ([facility]) documented in this encounter Administered Medications Inactive Administered Medications - up to 3 most recent administrations Medication Order MAR Action Action Date Dose Rate Site Acetaminophen (Tylenol) tab 975 mg 975 mg, Oral, PREOP, First dose on Fri11/01/22 at 0800, Last dose on Fri11/01/22 at 0800, For 1 dose, Maximum 4 g acetaminophen/day. Avoid in patients with severe hepatic impairment or severe active liver disease. Administer 60 minutes prior to OR., Pre-Op Given 11/01/2022 8:42 AM EST 975 mg Acetaminophen (Tylenol) tab 975 mg 975 mg, Oral, Q6H, First dose on Fri11/01/22 at 1400, Last dose on Fri11/06/22 at 0600, For 5 days, Maximum 4 g acetaminophen/day. Avoid in patients with severe hepatic impairment or severe active liver disease. Use for 5 days., Post-op Given 11/06/2022 5:29 AM EST 975 mg documented in this encounter Active and Recently Administered Medications Times are shown in EST. Scheduled Medication Order 11/09/2022 11/10/2022 11/11/2022 aspirin chew tab 81 mg 81 mg, Oral, Daily(AM), First dose on Fri11/03/22 at 0945, Until Discontinued 08 (Given - Provider: Barby Sands RN) 075 (Given - Provider: Yolette Velazquez RN) 08 (Given - Provider: Oksana Purvis, BIJAL) atorvaSTATin (Lipitor) tab 40 mg 40 mg, Oral, Daily(AM), First dose on Fri11/01/22 at 0900, Until Discontinued 08 (Given - Provider: Barby Sands RN) 075 (Given - Provider: Yolette Velazquez, BIJAL) 08 (Given - Provider: Oksana Purvis, BIJAL) Enoxaparin (Lovenox) inj 40 mg 40 mg, Subcutaneous, [id number], First dose on Fri11/05/22 at 1000, Until Discontinued, If patient is on warfarin, inform provider if daily INR value is 2 or greater! 1000 (Not Given - Provider: Barby Sands RN - Reason: Refused-Notify Provider - Comment: Keysha Pinzon MD notified) 1000 (Not Given - Provider: Yolette Velazquez RN - Reason: Refused-Notify Provider - Comment: Gonzalez Boggs made aware) 1000 (Not Given - Provider: Oksana Purvis RN - Reason: Refused-Notify Provider) Furosemide (Lasix) tab 40 mg 40 mg, Oral, BID(AM/PM), First dose on Fri11/02/22 at 0900, Until Discontinued 811 (Given - Provider: Barby Sands RN)2109 (Given - Provider: Kayli Horne LPN) 758 (Given - Provider: Yolette Velazquez RN)2134 (Given - Provider: Kayli Horne LPN) 08 (Given - Provider: Oksana Purvis RN) insulin aspart (NovoLOG) inj Subcutaneous, W/MEALS AND HS, First dose (after last modification) on Fri11/01/22 at 1700, Until Discontinued, Serum Blood Sugar less than 70 mg/dl or symptomatic (obtain STAT lab blood sugar and call covering provider); 80-150 (0 units); 151-200 (2 units); 201-250 (4 units); 251-300 (6 units); greater than 300 (give 8 units and call covering provider). Correctional insulin may be given if the patient is NPO. 0812 (Given - Provider: Barby Sands RN)1205 (Given - Provider: Barby Sands RN)1710 (Given - Provider: Barby Sands RN)2109 (Given - Provider: Kayli Horne LPN) 0803 (Not Given - Provider: Yolette Velazquez RN - Reason: Parameter(s) Not Met)1105 (Not Given - Provider: Yolette Velazquez RN - Reason: Parameter(s) Not Met)1644 (Not Given - Provider: Yolette Velazquez RN - Reason: Parameter(s) Not Met)2126 (No Insulin - Provider: Kyali Horne LPN - Reason: Parameter(s) Not Met - Comment: 115) 0800 (No Insulin - Provider: Oksana Purvis RN - Reason: Parameter(s) Not Met)1200 (Due) Ipratropium-Albuterol (Combivent Respimat) inhaler 1 Puff 1 Puff, Inhalation, RESPQID, First dose on Mary Carmne 10/31/22 at 2000, Until Discontinued, Shake well before use! NURSING TO FOLLOW PATIENT WITH MDI/DPI ADMINISTRATION WASTE INFO ( IF NOT SENT HOME WITH PATIENT) : Return unused medication to pharmacy in zip lock bag for disposal into black container labeled SP. 0812 (Given - Provider: Barby Sands RN)1205 (Given - Provider: Barby Sands RN)1606 (Given - Provider: Barby Sands RN)2109 (Given - Provider: Kyali Horne LPN) 0759 (Given - Provider: Yolette Velazquez RN)1053 (Given - Provider: Yolette Velazquez RN)1644 (Given - Provider: Yolette Velazquez RN)2135 (Given - Provider: Kayli Horne LPN) 0824 (Given - Provider: Oksana Purvis RN)1200 (Due) methIMAzole (Tapazole) tab 5 mg 5 mg, Oral, Daily(AM), First dose on Fri11/03/22 at 0945, Until Discontinued 08 (Given - Provider: Barby Sands RN) 075 (Given - Provider: Yolette Velazquez RN) 08 (Given - Provider: Oksana Purvis, BIJAL) metoprolol succinate XL (toPROL XL) tab 12.5 mg 12.5 mg, Oral, Daily(AM), First dose on Fri11/01/22 at 0900, Until Discontinued, Hold for HR less than 60 or SBP below 100 and notify service if dose is held This med should NOT be Crushed or Chewed. 08 (Given - Provider: Barby Sands RN) 757 (Given - Provider: Yolette Velazquez RN) 823 (Given - Provider: Oksana Purvis, BIJAL) omeprazole (PriLOSEC) cap 20 mg 20 mg, Oral, BID(AM/PM), First dose on Fri11/01/22 at 0900, Until Discontinued, This med should NOT be Crushed or Chewed 08 (Given - Provider: Barby Sands RN)2109 (Given - Provider: Kayli Horne LPN) 757 (Given - Provider: Yolette Velazquez RN)2134 (Given - Provider: Kayli Horne LPN) 824 (Given - Provider: Oksana Purvis RN) sertraline (Zoloft) tab 25 mg 25 mg, Oral, Daily(AM), First dose on Fri11/01/22 at 0900, Until Discontinued 811 (Given - Provider: Barby Sands RN) 075 (Given - Provider: Yolette Velazquez RN) 08 (Given - Provider: Oksana Purvis, BIJAL) Spironolactone (Aldactone) tab 12.5 mg 12.5 mg, Oral, MWF, First dose on Fri11/04/22 at 0900, Until Discontinued 823 (Given - Provider: Oksana Purvis, BIJAL) Sucralfate (Carafate) tab 1 g 1 g, Oral, ACHS, First dose on Fri11/05/22 at 0730, Until Discontinued 08 (Given - Provider: Barby Sands RN)1204 (Given - Provider: Barby Sands RN)1709 (Given - Provider: Barby Sands RN)2109 (Given - Provider: Kayli Horne LPN) 0615 (Given - Provider: Kayli Horne LPN)1052 (Given - Provider: Yolette Velazquez RN)1643 (Given - Provider: Yolette Velazquez RN)2134 (Given - Provider: Kayli Horne LPN) 0824 (Given - Provider: Oksana Purvis RN)1130 (Due) sulfamethoxazole-trimetho prim DS (Bactrim DS) 800-160 MG 1 Tablet 1 Tablet, Oral, Q12H, First dose on Fri11/10/22 at 0900, Last dose on Fri11/14/22 at 2100, For 5 days 0758 (Given - Provider: Yolette Velazquez RN)2135 (Given - Provider: Kayli Horne LPN) 0825 (Given - Provider: Oksana Purvis RN) traMADol (Ultram) tab 50 mg (COMPLETED) 50 mg, Oral, Q6H, First dose (after last reorder) on Fri11/06/22 at 1200, Last dose on Fri11/11/22 at 0600, For 5 days, Post-op 0616 (Given - Provider: Alma Rosa Loya RN)1205 (Given - Provider: Barby Sands RN)1836 (Given - Provider: Barby Sands RN)2321 (Given - Provider: Kayli Horne LPN) 0615 (Given - Provider: Kayli Horne LPN)1052 (Given - Provider: Yolette Velazquez RN)1644 (Given - Provider: Yolette Velazquez RN)2311 (Given - Provider: Kayli Horne LPN) 0534 (Given - Provider: Kayli Horne LPN) PRN Medication Order 11/09/2022 11/10/2022 11/11/2022 Albuterol Sulfate (Proventil) (2.5 MG/3ML) 0.083% inhalation solution 2.5 mg 2.5 mg, Nebulizer, Q4H PRN Dyspnea, Starting on Fri10/31/22 at 1800, Until Fri11/11/22 at 1734 Benzonatate (Tessalon Perles) cap 100 mg 100 mg, Oral, Q6H PRN Cough, Starting on Fri11/03/22 at 0846, Until Fri11/11/22 at 1734, This med should NOT be Crushed or Chewed calcium CARBonate (Tums E-X) tab CHEW 750 mg 750 mg, Oral, Q6H PRN Indigestion, Starting on Fri11/03/22 at 1442, Until Fri11/11/22 at 1734 dextrose 50 % inj 25 mL 25 mL, IV Push, PRN Hypoglycemia, Other, For blood glucose 54 - 69 mg/dL or 70 - 100 mg/dL with symptoms AND patient is unresponsive, NPO, OR unable to swallow, Starting on Fri10/31/22 at 1713, Until Fri11/11/22 at 1734, Administer IV. Recheck blood glucose after 15 minutes. Notify provider. dextrose 50 % inj 50 mL 50 mL, IV Push, PRN Hypoglycemia, Other, For blood glucose below 54 mg/dL AND patient unresponsive, NPO, OR unable to swallow, Starting on Fri10/31/22 at 1713, Until Fri11/11/22 at 1734, Administer IV. Recheck blood glucose in 15 minutes. Notify provider. glucagon (Glucagen) inj 1 mg 1 mg, Intramuscular, PRN Hypoglycemia, Other, If patient is unresponsive, or NPO and has no IV access, Starting on Fri10/31/22 at 1713, Until Fri11/11/22 at 1734, NPO and no IV access with either [...] patient alert WITH difficulty chewing/swallowing, Starting on Fri10/31/22 at 1713, Until Fri11/11/22 at 1734, Administer gel. Recheck blood glucose after 15 minutes. Notify provider. 37.5 gram tube = 15 grams glucose = 1 each Glucose (Glutose 15) 40 % gel 30 g of glucose 30 g of glucose, Oral, PRN Hypoglycemia (low sugar), Other, For blood glucose below 54 mg/dL AND patient alert WITH difficulty chewing/swallowing, Starting on Mary Carmen 10/31/22 at 1713, Until 11/11/22 at 1734, Administer gel. Recheck blood glucose after 15 minutes. Notify provider. 37.5 gram tube = 15 grams glucose = 1 each glucose chew tab 16 g 16 g, Oral, PRN Hypoglycemia, Other, For blood glucose 54 - 69 mg/dL or 70 - 100 mg/dL with symptoms and patient alert without difficulty chewing/swallowing., Starting on Mary Carmen 10/31/22 at 1713, Until Fri11/11/22 at 1734 house antacid (Mi-Acid II) oral susp 30 mL 30 mL, Oral, Q4H PRN Indigestion, Starting on Fri11/05/22 at 0506, Until Fri11/11/22 at 1734, If tums ineffective SHAKE WELL HYDROmorphone (Dilaudid) inj 0.5 mg 0.5 mg, IV Push, Q3H PRN Pain, Breakthrough, Starting on Fri11/01/22 at 1328, Until Fri11/11/22 at 1734, Do not use with [employer] (unless directed by provider). May use if patient unable to take oral oxycodone., Post-op 0445 (Given - Provider: Alma Rosa Loya, BIJAL)0929 (Given - Provider: Qiana Valladares RN)1606 (Given - Provider: Barby Sands, BIJAL) 0327 (Given - Provider: Nita Brown, BIJAL)1313 (Given - Provider: Yolette Velazquez, BIJAL)2058 (Given - Provider: Wilton Adams, BIJAL) 0101 (Given - Provider: Alma Rosa Loya RN) naloxone (Narcan) 0.4 MG/ML inj 0.08 mg 0.08 mg, IV Push, PRN Other, If patient is over sedated or Respiratory Rate less than 8, Starting on Fri11/01/22 at 1328, Until Fri11/11/22 at 1734, Call provider if patient is over sedated or Respiratory Rate is less than 8, Post-op ondansetron (Zofran) inj 4 mg(Linked Group 1) 4 mg, IV Push, Q6H PRN Other, May use for nausea or vomiting if patient unable to take oral ondansetron, Starting on Fri11/01/22 at 1327, Until Fri11/11/22 at 1734, Post-op 0320 (Given - Provider: Alma Rosa Loya RN)141 (Given - Provider: Barby Sands RN)2109 (See Alternative - Provider: Kayli Horne LPN) 105 (See Alternative - Provider: Yolette Velazquez RN)2056 (See Alternative - Provider: Wilton Adams RN) ondansetron ODT (Zofran) tab 4 mg(Linked Group 1) 4 mg, On Tongue, Q6H PRN Nausea, Vomiting, Starting on Fri11/01/22 at 1327, Until Fri11/11/22 at 1734, Post-op 0320 (See Alternative - Provider: Alma Rosa Loya RN)141 (See Alternative - Provider: Barby Sands RN)2109 (Given - Provider: Kayil Horne LPN) 1051 (Given - Provider: Yolette Velazquez RN)2056 (Given - Provider: Wilton Adams RN) oxyCODONE (Oxy IR) tab 10 mg 10 mg, Oral, Q4H PRN Pain, Severe, Starting on Fri11/01/22 at 1328, Until Fri11/11/22 at 1734, Hold for somnolence or respiratory rate less than 10, Post-op 0320 (Given - Provider: Alma Rosa Loya RN)08 (Given - Provider: Barby Sands RN)141 (Given - Provider: Barby Sands RN)2108 (Given - Provider: Kayli Horne LPN) 014 (Given - Provider: Kayli Horne LPN)105 (Given - Provider: Yolette Velazquez RN)181 (Given - Provider: Yolette Velazquez RN) 0016 (Given - Provider: Kayli Seebold, SVP [employer])0825 (Given - Provider: Oksana Purvis, BIJAL) oxyCODONE (Oxy IR) tab 5 mg 5 mg, Oral, Q4H PRN Pain, Moderate, Starting on Fri11/01/22 at 1328, Until 11/11/22 at 1734, Hold for somnolence or respiratory rate less than 10, Post-op prochlorperazine (Compazine) inj 10 mg 10 mg, IV Push, Q6H PRN Nausea, Vomiting, Starting on Fri11/01/22 at 2038, Until Fri11/11/22 at 1734 0616 (Given - Provider: Alma Rosa Loya, RN)2328 (Given - Provider: Kimberly Mckinnon, BIJAL) 1313 (Given - Provider: Yolette Velazquez RN) Linked Groups Order Group 1: ondansetron ODT (Zofran) tab 4 mgJump to med 4 mg, On Tongue, Q6H PRN Nausea, Vomiting
Starting on Fri11/01/22 at 1327, Until Fri11/11/22 at 1734
Post-op Or ondansetron (Zofran) inj 4 mgJump to med 4 mg, IV Push, Q6H PRN Other, May use for nausea or vomiting if patient unable to take oral ondansetron
Starting on Fri11/01/22 at 1327, Until Fri11/11/22 at 1734
Post-op documented in this encounter Additional Health Concerns [...] Directives occurred with: Not Discussed Care Teams Robot Technician Relationship Specialty Start Date End Date Marcela Pinto MD [address] [place] [address] PCP - General Internal Medicine 08/04/14 documented as of this encounter
--- OUTSIDE RECORDS SUMMARY | 2023-06-18 02:28 | External Medical Summary ---
Author Name Unknown Address Unknown Organization [id number]:LABORATORY [facility] - [address] [facility] [address] Laboratory Report Ordering Provider Test Date Status HENOK VALDOVINOS 11/11/2022 08:10:00 Final Observation Date Value Abnormality Reference (Units ) Status SYNC LEUKOCYTES IN BLOOD BY AUTOMATED COUNT 11/11/2022 08:10:00 18.53 Above high normal 4.00-10.80 (K/uL) Final Segs 11/11/2022 08:10:00 56.7 40.0-75.0 (%) Final Lymphs % 11/11/2022 08:10:00 24.3 18.0-42.0 (%) Final Monos 11/11/2022 08:10:00 11.2 Above high normal 1.0-11.0 (%) Final Eosinophils 11/11/2022 08:10:00 4.2 0.0-6.0 (%) Final Basos 11/11/2022 08:10:00 0.3 0.0-2.0 (%) Final Immature Granulocyte, Percent 11/11/2022 08:10:00 3.3 Above high normal 0.0-2.0 (%) Final Absolute Segs 11/11/2022 08:10:00 10.50 Above high normal 1.80-7.70 (K/uL) Final Lymphs, absolute 11/11/2022 08:10:00 4.51 1.00-4.80 (K/ul) Final Monos, Abs 11/11/2022 08:10:00 2.07 Above high normal 0.00-1.10 (K/uL) Final Eos, Abs 11/11/2022 08:10:00 0.78 Above high normal 0.00-0.70 (K/uL) Final Basos, Abs 11/11/2022 08:10:00 0.05 0.00-0.20 (K/uL) Final Immature Granulocytes, Number 11/11/2022 08:10:00 0.62 Above high normal 0.00-0.20 (K/uL) Final Performing Location LABORATORY [facility] - [facility] [address] [facility] [address]
--- OUTSIDE RECORDS SUMMARY | 2023-06-18 02:28 | External Medical Summary ---
Author Name Unknown Address Unknown Organization : Laboratory Report Ordering Provider Test Date Status NADIRA GURROLA 11/09/2022 17:01:34 Final Observation Date Value Abnormality Reference (Units ) Status Glucose Point of Care 11/09/2022 17:01:34 178 Above high normal 70-120 (mg/dL) Final Performing Location
--- OUTSIDE RECORDS SUMMARY | 2023-06-18 02:28 | External Medical Summary ---
Author Name Unknown Address Unknown Organization : Laboratory Report Ordering Provider Test Date Status NADIRA GURROLA 11/09/2022 20:59:27 Final Observation Date Value Abnormality Reference (Units ) Status Glucose Point of Care 11/09/2022 20:59:27 183 Above high normal 70-120 (mg/dL) Final Performing Location
--- OUTSIDE RECORDS SUMMARY | 2023-06-18 02:28 | External Medical Summary ---
Author Name Unknown Address Unknown Organization [id number]:LABORATORY [facility] - [facility] [address] [facility] [address] Laboratory Report Ordering Provider Test Date Status AYANADAVID JR 11/10/2022 04:20:00 Final Observation Date Value Abnormality Reference (Units ) Status WBC, Total 11/10/2022 04:20:00 15.57 Above high normal 4.00-10.80 (K/uL) Final RBC 11/10/2022 04:20:00 3.22 3.85-5.15 (M/uL) Final Hemoglobin 11/10/2022 04:20:00 8.9 Below low normal 12.0-15.3 (g/dL) Final HCT 11/10/2022 04:20:00 29.5 Below low normal 36.0-45.2 (%) Final MCV 11/10/2022 04:20:00 91.6 81.5-97.5 (fL) Final MCH 11/10/2022 04:20:00 27.6 27.0-34.0 (pg) Final MCHC 11/10/2022 04:20:00 30.2 32.0-36.0 (g/dL) Final RDW 11/10/2022 04:20:00 14.4 11.5-15.5 (%) Final Platelets 11/10/2022 04:20:00 533 Above high normal 140-400 (K/uL) Final MPV 11/10/2022 04:20:00 9.3 6.6-11.1 (fL) Final Nucleated erythrocytes/100 leukocytes [Ratio] in Blood by Automated count 11/10/2022 04:20:00 0 <=0 (/100 WBCs) Final Performing Location LABORATORY [facility] - [address] [place] [address]
--- OUTSIDE RECORDS SUMMARY | 2023-06-18 02:28 | External Medical Summary ---
Author Name Unknown Address Unknown Organization : Laboratory Report Ordering Provider Test Date Status NADIRA GURROLA 11/10/2022 07:16:07 Final Observation Date Value Abnormality Reference (Units ) Status Glucose Point of Care 11/10/2022 07:16:07 145 Above high normal 70-120 (mg/dL) Final Performing Location
--- OUTSIDE RECORDS SUMMARY | 2023-06-18 02:28 | External Medical Summary ---
Author Name Unknown Address Unknown Organization K01:LAB[facility]ORY [facility] - [address] [address] Laboratory Report Ordering Provider Test Date Status DAVID PIÑA JR 11/10/2022 04:20:00 Final Observation Date Value Abnormality Reference (Units ) Status BUN 11/10/2022 04:20:00 32 Above high normal 6-20 (mg/dL) Final Creatinine 11/10/2022 04:20:00 1.2 Above high normal 0.5-1.0 (mg/dL) Final Glomerular filtration rate/1.73 sq M.predicted [Volume Rate/Area] in Serum, Plasma or Blood by Creatinine-based formula (CKD-EPI) 11/10/2022 04:20:00 47 Below low normal >=60 (mL/min) Final Performing Location LABOR[facility]ORY [facility] - [address] [place] [address]
--- OUTSIDE RECORDS SUMMARY | 2023-06-18 02:28 | External Medical Summary ---
Author Name Unknown Address Unknown Organization : Laboratory Report Ordering Provider Test Date Status NADIRA GURROLA 11/10/2022 21:20:20 Final Observation Date Value Abnormality Reference (Units ) Status Glucose Point of Care 11/10/2022 21:20:20 115 70-120 (mg/dL) Final Performing Location
--- OUTSIDE RECORDS SUMMARY | 2023-06-18 02:28 | External Medical Summary ---
Author Name Unknown Address Unknown Organization [id number]:LABORATORY [facility] [place] - [facility] [address] [facility] [address] Laboratory Report Ordering Provider Test Date Status HENOK VALDOVINOS 11/11/2022 08:10:00 Final Observation Date Value Abnormality Reference (Units ) Status WBC, Total 11/11/2022 08:10:00 18.53 Above high normal 4.00-10.80 (K/uL) Final RBC 11/11/2022 08:10:00 3.98 3.85-5.15 (M/uL) Final Hemoglobin 11/11/2022 08:10:00 11.1 Below low normal 12.0-15.3 (g/dL) Final HCT 11/11/2022 08:10:00 36.3 36.0-45.2 (%) Final MCV 11/11/2022 08:10:00 91.2 81.5-97.5 (fL) Final MCH 11/11/2022 08:10:00 27.9 27.0-34.0 (pg) Final MCHC 11/11/2022 08:10:00 30.6 32.0-36.0 (g/dL) Final RDW 11/11/2022 08:10:00 14.4 11.5-15.5 (%) Final Platelets 11/11/2022 08:10:00 645 Above high normal 140-400 (K/uL) Final MPV 11/11/2022 08:10:00 9.3 6.6-11.1 (fL) Final Nucleated erythrocytes/100 leukocytes [Ratio] in Blood by Automated count 11/11/2022 08:10:00 0 <=0 (/100 WBCs) Final Performing Location LABORATORY [facility] [place] - [address] [place] [address]
--- OUTSIDE RECORDS SUMMARY | 2023-06-18 02:28 | External Medical Summary ---
Author Name Unknown Address Unknown Organization [id number]:[place]ORY [facility] [place] [address] [place] [address] Laboratory Report Ordering Provider Test Date Status HENOK VALDOVINOS 11/11/2022 08:10:00 Final Observation Date Value Abnormality Reference (Units ) Status BUN 11/11/2022 08:10:00 36 Above high normal 6-20 (mg/dL) Final Creatinine 11/11/2022 08:10:00 1.1 Above high normal 0.5-1.0 (mg/dL) Final Glomerular filtration rate/1.73 sq M.predicted [Volume Rate/Area] in Serum, Plasma or Blood by Creatinine-based formula (CKD-EPI) 11/11/2022 08:10:00 49 Below low normal >=60 (mL/min) Final Performing Location LABORATORY [facility] [place] - [address] [place] [address]
--- OUTSIDE RECORDS SUMMARY | 2023-06-18 02:28 | External Medical Summary ---
Author Name Unknown Address Unknown Organization : Laboratory Report Ordering Provider Test Date Status NADIRA GURROLA 11/10/2022 10:59:54 Final Observation Date Value Abnormality Reference (Units ) Status Glucose Point of Care 11/10/2022 10:59:54 147 Above high normal 70-120 (mg/dL) Final Performing Location
--- OUTSIDE RECORDS SUMMARY | 2023-06-18 02:28 | External Medical Summary ---
Author Name Unknown Address Unknown Organization [id number]:LABORATORY [facility] [place] - [address] [place] [address] Laboratory Report Ordering Provider Test Date Status BELLE VILLALOBOS 11/09/2022 21:27:26 Final Observation Date Value Abnormality Reference (Units ) Status Color of Urine by Auto 11/09/2022 21:27:26 Yellow Colorless, Light Yellow, Yellow, Dark Yellow Final Clarity, Urine 11/09/2022 21:27:26 Slightly Cloudy Abnormal Clear Final Glucose [Mass/volume] in Urine by Automated test strip 11/09/2022 21:27:26 Negative Negative (mg/dL) Final Bilirubin.total [Presence] in Urine by Automated test strip 11/09/2022 21:27:26 Negative Negative Final Ketones [Mass/volume] in Urine by Automated test strip 11/09/2022 21:27:26 Negative Negative (mg/dL) Final Specific gravity, Urine 11/09/2022 21:27:26 1.014 1.003-1.030 Final Hemoglobin [Presence] in Urine by Automated test strip 11/09/2022 21:27:26 Negative Negative Final pH, Urine 11/09/2022 21:27:26 5.0 5.0-7.5 (Units) Final Protein [Mass/volume] in Urine by Automated test strip 11/09/2022 21:27:26 Negative Negative (mg/dL) Final Urobilinogen [Mass/volume] in Urine by Automated test strip 11/09/2022 21:27:26 Normal Normal (mg/dL) Final Nitrite [Presence] in Urine by Automated test strip 11/09/2022 21:27:26 Positive Abnormal Negative Final Leukocyte esterase [Presence] in Urine by Automated test strip 11/09/2022 21:27:26 Moderate Abnormal Negative Final RBC, Urine 11/09/2022 21:27:26 0-2 0-2 (/HPF) Final WBC, Urine 11/09/2022 21:27:26 10-19 Abnormal 0-2 (/HPF) Final Bacteria [#/area] in Urine sediment by Microscopy high power field 11/09/2022 21:27:26 0-25 0-25 (/HPF) Final Epithelial cells.squamous [#/area] in Urine sediment by Microscopy high power field 11/09/2022 21:27:26 Many Abnormal None (/HPF) Final Hyaline casts, Urine 11/09/2022 21:27:26 10-19 Abnormal None (/LPF) Final Performing Location LABORATORY [facility] [place] - [address] [facility] [address]
--- OUTSIDE RECORDS SUMMARY | 2023-06-18 02:28 | External Medical Summary ---
Author Name Unknown Address Unknown Organization : Laboratory Report Ordering Provider Test Date Status NADIRA GURROLA 11/10/2022 16:17:10 Final Observation Date Value Abnormality Reference (Units ) Status Glucose Point of Care 11/10/2022 16:17:10 138 Above high normal 70-120 (mg/dL) Final Performing Location
--- OUTSIDE RECORDS SUMMARY | 2023-06-18 02:29 | External Medical Summary ---
Author Name Unknown Address Unknown Organization : Laboratory Report Ordering Provider Test Date Status NADIRA GURROLA 11/05/2022 15:56:01 Final Observation Date Value Abnormality Reference (Units ) Status Glucose Point of Care 11/05/2022 15:56:01 158 Above high normal 70-120 (mg/dL) Final Performing Location
--- OUTSIDE RECORDS SUMMARY | 2023-06-18 02:29 | External Medical Summary ---
Author Name Unknown Address Unknown Organization : Laboratory Report Ordering Provider Test Date Status NADIRA GURROLA 11/09/2022 07:13:01 Final Observation Date Value Abnormality Reference (Units ) Status Glucose Point of Care 11/09/2022 07:13:01 178 Above high normal 70-120 (mg/dL) Final Performing Location
--- OUTSIDE RECORDS SUMMARY | 2023-06-18 02:29 | External Medical Summary ---
Author Name Unknown Address Unknown Organization : Laboratory Report Ordering Provider Test Date Status NADIRA GURROLA 11/06/2022 20:49:35 Final Observation Date Value Abnormality Reference (Units ) Status Glucose Point of Care 11/06/2022 20:49:35 127 Above high normal 70-120 (mg/dL) Final Performing Location
--- OUTSIDE RECORDS SUMMARY | 2023-06-18 02:29 | External Medical Summary ---
Author Name Unknown Address Unknown Organization : Laboratory Report Ordering Provider Test Date Status NADIRA GURROLA 11/07/2022 21:27:26 Final Observation Date Value Abnormality Reference (Units ) Status Glucose Point of Care 11/07/2022 21:27:26 131 Above high normal 70-120 (mg/dL) Final Performing Location
--- OUTSIDE RECORDS SUMMARY | 2023-06-18 02:29 | External Medical Summary ---
Author Name Unknown Address Unknown Organization [id number]:[facility]ATORY [facility] [place] - [address] [place] [address] Laboratory Report Ordering Provider Test Date Status DAVID PIÑA JR 11/06/2022 04:06:00 Final Observation Date Value Abnormality Reference (Units ) Status BUN 11/06/2022 04:06:00 33 Above high normal 6-20 (mg/dL) Final Creatinine 11/06/2022 04:06:00 1.2 Above high normal 0.5-1.0 (mg/dL) Final Glomerular filtration rate/1.73 sq M.predicted [Volume Rate/Area] in Serum, Plasma or Blood by Creatinine-based formula (CKD-EPI) 11/06/2022 04:06:00 43 Below low normal >=60 (mL/min) Final Performing Location LABORATORY [facility] [place] - [address] [place] [address]
--- OUTSIDE RECORDS SUMMARY | 2023-06-18 02:29 | External Medical Summary ---
Author Name Unknown Address Unknown Organization : Laboratory Report Ordering Provider Test Date Status NADIRA GURROLA 11/06/2022 07:39:32 Final Observation Date Value Abnormality Reference (Units ) Status Glucose Point of Care 11/06/2022 07:39:32 126 Above high normal 70-120 (mg/dL) Final Performing Location
--- OUTSIDE RECORDS SUMMARY | 2023-06-18 02:29 | External Medical Summary ---
Author Name Unknown Address Unknown Organization : Laboratory Report Ordering Provider Test Date Status NADIRA GURROLA 11/07/2022 07:41:01 Final Observation Date Value Abnormality Reference (Units ) Status Glucose Point of Care 11/07/2022 07:41:01 109 70-120 (mg/dL) Final Performing Location
--- OUTSIDE RECORDS SUMMARY | 2023-06-18 02:29 | External Medical Summary ---
Author Name Unknown Address Unknown Organization [id number]:[place] [facility] [place] [address] [facility] [place] [address] Laboratory Report Ordering Provider Test Date Status DAVID PIÑA JR 11/09/2022 04:05:00 Correctio n Observation Date Value Abnormality Reference (Units ) Status WBC, Total 11/09/2022 04:05:00 14.28 Above high normal 4 .00-10.80 (K/uL) Correction Performing Location LABORATORY [facility] - [address] [facility] [place] [address]
--- OUTSIDE RECORDS SUMMARY | 2023-06-18 02:29 | External Medical Summary ---
Author Name Unknown Address Unknown Organization : Laboratory Report Ordering Provider Test Date Status NADIRA GURROLA 11/06/2022 11:41:12 Final Observation Date Value Abnormality Reference (Units ) Status Glucose Point of Care 11/06/2022 11:41:12 136 Above high normal 70-120 (mg/dL) Final Performing Location
--- OUTSIDE RECORDS SUMMARY | 2023-06-18 02:29 | External Medical Summary ---
Author Name Unknown Address Unknown Organization : Laboratory Report Ordering Provider Test Date Status NADIRA GURROLA 11/06/2022 16:25:53 Final Observation Date Value Abnormality Reference (Units ) Status Glucose Point of Care 11/06/2022 16:25:53 131 Above high normal 70-120 (mg/dL) Final Performing Location
--- OUTSIDE RECORDS SUMMARY | 2023-06-18 02:29 | External Medical Summary ---
Author Name Unknown Address Unknown Organization : Laboratory Report Ordering Provider Test Date Status NADIRA GURROLA 11/08/2022 07:45:56 Final Observation Date Value Abnormality Reference (Units ) Status Glucose Point of Care 11/08/2022 07:45:56 158 Above high normal 70-120 (mg/dL) Final Performing Location
--- OUTSIDE RECORDS SUMMARY | 2023-06-18 02:29 | External Medical Summary ---
Author Name Unknown Address Unknown Organization [id number]:[place] [facility] [place] [address] [place] [address] Laboratory Report Ordering Provider Test Date Status DAVID PIÑA JR 11/07/2022 03:41:00 Final Observation Date Value Abnormality Reference (Units ) Status BUN 11/07/2022 03:41:00 26 Above high normal 6-20 (mg/dL) Final Creatinine 11/07/2022 03:41:00 0.9 0.5-1.0 (mg/dL) Final Glomerular filtration rate/1.73 sq M.predicted [Volume Rate/Area] in Serum, Plasma or Blood by Creatinine-based formula (CKD-EPI) 11/07/2022 03:41:00 62 >=60 (mL/min) Final Performing Location [place] [place] [address] [place] [address]
--- OUTSIDE RECORDS SUMMARY | 2023-06-18 02:29 | External Medical Summary ---
Author Name Unknown Address Unknown Organization [id number]:LABORATORY [facility] [place] - [facility] [address] [facility] [address] Laboratory Report Ordering Provider Test Date Status AYANADAVID JR 11/08/2022 05:02:00 Final Observation Date Value Abnormality Reference (Units ) Status WBC, Total 11/08/2022 05:02:00 12.33 Above high normal 4.00-10.80 (K/uL) Final RBC 11/08/2022 05:02:00 3.66 3.85-5.15 (M/uL) Final Hemoglobin 11/08/2022 05:02:00 10.4 Below low normal 12.0-15.3 (g/dL) Final HCT 11/08/2022 05:02:00 33.0 Below low normal 36.0-45.2 (%) Final MCV 11/08/2022 05:02:00 90.2 81.5-97.5 (fL) Final MCH 11/08/2022 05:02:00 28.4 27.0-34.0 (pg) Final MCHC 11/08/2022 05:02:00 31.5 32.0-36.0 (g/dL) Final RDW 11/08/2022 05:02:00 14.6 11.5-15.5 (%) Final Platelets 11/08/2022 05:02:00 522 Above high normal 140-400 (K/uL) Final MPV 11/08/2022 05:02:00 9.3 6.6-11.1 (fL) Final Nucleated erythrocytes/100 leukocytes [Ratio] in Blood by Automated count 11/08/2022 05:02:00 0 <=0 (/100 WBCs) Final Performing Location LABORATORY [facility] [place] - [address] [facility] [address]
--- OUTSIDE RECORDS SUMMARY | 2023-06-18 02:29 | External Medical Summary ---
Author Name Unknown Address Unknown Organization : Laboratory Report Ordering Provider Test Date Status NADIRA GURROLA 11/07/2022 11:16:44 Final Observation Date Value Abnormality Reference (Units ) Status Glucose Point of Care 11/07/2022 11:16:44 141 Above high normal 70-120 (mg/dL) Final Performing Location
--- OUTSIDE RECORDS SUMMARY | 2023-06-18 02:29 | External Medical Summary ---
Author Name Unknown Address Unknown Organization : Laboratory Report Ordering Provider Test Date Status NADIRA GURROLA 11/07/2022 15:57:10 Final Observation Date Value Abnormality Reference (Units ) Status Glucose Point of Care 11/07/2022 15:57:10 130 Above high normal 70-120 (mg/dL) Final Performing Location
--- OUTSIDE RECORDS SUMMARY | 2023-06-18 02:29 | External Medical Summary ---
Author Name Unknown Address Unknown Organization : Laboratory Report Ordering Provider Test Date Status NADIRA GURROLA 11/08/2022 11:50:57 Final Observation Date Value Abnormality Reference (Units ) Status Glucose Point of Care 11/08/2022 11:50:57 166 Above high normal 70-120 (mg/dL) Final Performing Location
--- OUTSIDE RECORDS SUMMARY | 2023-06-18 02:29 | External Medical Summary ---
Author Name Unknown Address Unknown Organization : Laboratory Report Ordering Provider Test Date Status NADIRA GURROLA 11/09/2022 11:36:12 Final Observation Date Value Abnormality Reference (Units ) Status Glucose Point of Care 11/09/2022 11:36:12 174 Above high normal 70-120 (mg/dL) Final Performing Location
--- OUTSIDE RECORDS SUMMARY | 2023-06-18 02:29 | External Medical Summary ---
Author Name Unknown Address Unknown Organization K01:[facility]ORY [facility] [place] - [address] [place] [address] Laboratory Report Ordering Provider Test Date Status DAVID PIÑA JR 11/09/2022 04:05:00 Final Observation Date Value Abnormality Reference (Units ) Status BUN 11/09/2022 04:05:00 21 Above high normal 6-20 (mg/dL) Final Creatinine 11/09/2022 04:05:00 0.9 0.5-1.0 (mg/dL) Final Glomerular filtration rate/1.73 sq M.predicted [Volume Rate/Area] in Serum, Plasma or Blood by Creatinine-based formula (CKD-EPI) 11/09/2022 04:05:00 67 >=60 (mL/min) Final Performing Location LABORATORY [facility] [place] - [address] [place] [address]
--- OUTSIDE RECORDS SUMMARY | 2023-06-18 02:29 | External Medical Summary ---
Author Name Unknown Address Unknown Organization : Laboratory Report Ordering Provider Test Date Status NADIRA GURROLA 11/05/2022 20:28:22 Final Observation Date Value Abnormality Reference (Units ) Status Glucose Point of Care 11/05/2022 20:28:22 136 Above high normal 70-120 (mg/dL) Final Performing Location
--- OUTSIDE RECORDS SUMMARY | 2023-06-18 02:29 | External Medical Summary ---
Author Name Unknown Address Unknown Organization : Laboratory Report Ordering Provider Test Date Status NADIRA GURROLA 11/08/2022 22:35:51 Final Observation Date Value Abnormality Reference (Units ) Status Glucose Point of Care 11/08/2022 22:35:51 191 Above high normal 70-120 (mg/dL) Final Performing Location
--- OUTSIDE RECORDS SUMMARY | 2023-06-18 02:29 | External Medical Summary ---
Author Name Unknown Address Unknown Organization K01:LABORATORY [facility] [place] - [facility] [address] [facility] [address] Laboratory Report Ordering Provider Test Date Status AYANADAVID JR 11/07/2022 03:41:00 Final Observation Date Value Abnormality Reference (Units ) Status WBC, Total 11/07/2022 03:41:00 15.22 Above high normal 4.00-10.80 (K/uL) Final RBC 11/07/2022 03:41:00 3.33 3.85-5.15 (M/uL) Final Hemoglobin 11/07/2022 03:41:00 9.4 Below low normal 12.0-15.3 (g/dL) Final HCT 11/07/2022 03:41:00 30.5 Below low normal 36.0-45.2 (%) Final MCV 11/07/2022 03:41:00 91.6 81.5-97.5 (fL) Final MCH 11/07/2022 03:41:00 28.2 27.0-34.0 (pg) Final MCHC 11/07/2022 03:41:00 30.8 32.0-36.0 (g/dL) Final RDW 11/07/2022 03:41:00 14.6 11.5-15.5 (%) Final Platelets 11/07/2022 03:41:00 480 Above high normal 140-400 (K/uL) Final MPV 11/07/2022 03:41:00 9.2 6.6-11.1 (fL) Final Nucleated erythrocytes/100 leukocytes [Ratio] in Blood by Automated count 11/07/2022 03:41:00 0 <=0 (/100 WBCs) Final Performing Location LABOR[facility]ORY [facility] [place] [facility] [address] [facility] [address]
--- OUTSIDE RECORDS SUMMARY | 2023-06-18 02:29 | External Medical Summary ---
Author Name Unknown Address Unknown Organization : Laboratory Report Ordering Provider Test Date Status NADIRA GURROLA 11/08/2022 16:25:22 Final Observation Date Value Abnormality Reference (Units ) Status Glucose Point of Care 11/08/2022 16:25:22 150 Above high normal 70-120 (mg/dL) Final Performing Location
--- OUTSIDE RECORDS SUMMARY | 2023-06-18 02:29 | External Medical Summary ---
Author Name Unknown Address Unknown Organization K01:[place] [facility] [place] [address] [place] [address] Laboratory Report Ordering Provider Test Date Status DAVID PIÑA JR 11/08/2022 05:02:00 Final Observation Date Value Abnormality Reference (Units ) Status BUN 11/08/2022 05:02:00 18 6-20 (mg/dL) Final Creatinine 11/08/2022 05:02:00 0.8 0.5-1.0 (mg/dL) Final Glomerular filtration rate/1.73 sq M.predicted [Volume Rate/Area] in Serum, Plasma or Blood by Creatinine-based formula (CKD-EPI) 11/08/2022 05:02:00 76 >=60 (mL/min) Final Performing Location LAB[facility]ATORY [facility] [address] [facility] [address]
--- OUTSIDE RECORDS SUMMARY | 2023-06-18 02:29 | External Medical Summary ---
Author Name Unknown Address Unknown Organization K01:LAB[facility]ORY [facility] [place] [facility] [place] [address] [facility] [address] Laboratory Report Ordering Provider Test Date Status AYANADAVID JR 11/06/2022 04:06:00 Final Observation Date Value Abnormality Reference (Units ) Status WBC, Total 11/06/2022 04:06:00 15.35 Above high normal 4.00-10.80 (K/uL) Final RBC 11/06/2022 04:06:00 3.54 3.85-5.15 (M/uL) Final Hemoglobin 11/06/2022 04:06:00 9.8 Below low normal 12.0-15.3 (g/dL) Final HCT 11/06/2022 04:06:00 31.2 Below low normal 36.0-45.2 (%) Final MCV 11/06/2022 04:06:00 88.1 81.5-97.5 (fL) Final MCH 11/06/2022 04:06:00 27.7 27.0-34.0 (pg) Final MCHC 11/06/2022 04:06:00 31.4 32.0-36.0 (g/dL) Final RDW 11/06/2022 04:06:00 14.6 11.5-15.5 (%) Final Platelets 11/06/2022 04:06:00 475 Above high normal 140-400 (K/uL) Final MPV 11/06/2022 04:06:00 9.7 6.6-11.1 (fL) Final Nucleated erythrocytes/100 leukocytes [Ratio] in Blood by Automated count 11/06/2022 04:06:00 0 <=0 (/100 WBCs) Final Performing Location LABORATORY [facility] [place] [facility] [place] - [address] [place] [address]
--- OUTSIDE RECORDS SUMMARY | 2023-06-18 02:30 | External Medical Summary ---
Author Name Unknown Address Unknown Organization : Laboratory Report Ordering Provider Test Date Status NADIRA GURROLA 11/05/2022 11:23:55 Final Observation Date Value Abnormality Reference (Units ) Status Glucose Point of Care 11/05/2022 11:23:55 137 Above high normal 70-120 (mg/dL) Final Performing Location
--- OUTSIDE RECORDS SUMMARY | 2023-06-18 02:30 | External Medical Summary ---
Author Name Unknown Address Unknown Organization : Laboratory Report Ordering Provider Test Date Status NADIRA GURROLA 11/04/2022 21:25:19 Final Observation Date Value Abnormality Reference (Units ) Status Glucose Point of Care 11/04/2022 21:25:19 123 Above high normal 70-120 (mg/dL) Final Performing Location
--- OUTSIDE RECORDS SUMMARY | 2023-06-18 02:30 | External Medical Summary ---
Author Name Unknown Address Unknown Organization K01:[place] [facility] [place] [address] [place] [address] Laboratory Report Ordering Provider Test Date Status DAVID PIÑA JR 11/02/2022 03:27:00 Final Observation Date Value Abnormality Reference (Units ) Status BUN 11/02/2022 03:27:00 15 6-20 (mg/dL) Final Creatinine 11/02/2022 03:27:00 0.9 0.5-1.0 (mg/dL) Final Glomerular filtration rate/1.73 sq M.predicted [Volume Rate/Area] in Serum, Plasma or Blood by Creatinine-based formula (CKD-EPI) 11/02/2022 03:27:00 65 >=60 (mL/min) Final Performing Location LABORATORY [facility] - [address] [facility] [address]
--- OUTSIDE RECORDS SUMMARY | 2023-06-18 02:30 | External Medical Summary ---
Author Name Unknown Address Unknown Organization K01:LABORATORY [facility] - [facility] [address] [facility] [address] Laboratory Report Ordering Provider Test Date Status AYANADAVID JR 11/04/2022 04:21:00 Final Observation Date Value Abnormality Reference (Units ) Status WBC, Total 11/04/2022 04:21:00 19.15 Above high normal 4.00-10.80 (K/uL) Final RBC 11/04/2022 04:21:00 3.54 3.85-5.15 (M/uL) Final Hemoglobin 11/04/2022 04:21:00 10.1 Below low normal 12.0-15.3 (g/dL) Final HCT 11/04/2022 04:21:00 33.0 Below low normal 36.0-45.2 (%) Final MCV 11/04/2022 04:21:00 93.2 81.5-97.5 (fL) Final MCH 11/04/2022 04:21:00 28.5 27.0-34.0 (pg) Final MCHC 11/04/2022 04:21:00 30.6 32.0-36.0 (g/dL) Final RDW 11/04/2022 04:21:00 14.9 11.5-15.5 (%) Final Platelets 11/04/2022 04:21:00 397 140-400 (K/uL) Final MPV 11/04/2022 04:21:00 9.5 6.6-11.1 (fL) Final Nucleated erythrocytes/100 leukocytes [Ratio] in Blood by Automated count 11/04/2022 04:21:00 0 <=0 (/100 WBCs) Final Performing Location LABORATORY [facility] - [address] [place] [address]
--- OUTSIDE RECORDS SUMMARY | 2023-06-18 02:30 | External Medical Summary ---
Author Name Unknown Address Unknown Organization : Laboratory Report Ordering Provider Test Date Status NADIRA GURROLA 11/04/2022 15:55:10 Final Observation Date Value Abnormality Reference (Units ) Status Glucose Point of Care 11/04/2022 15:55:10 130 Above high normal 70-120 (mg/dL) Final Performing Location
--- OUTSIDE RECORDS SUMMARY | 2023-06-18 02:30 | External Medical Summary ---
Author Name Unknown Address Unknown Organization K01:LABORATORY [facility] [place] - [facility] [address] [facility] [address] Laboratory Report Ordering Provider Test Date Status AYANADAVID JR 11/02/2022 03:27:00 Final Observation Date Value Abnormality Reference (Units ) Status WBC, Total 11/02/2022 03:27:00 22.95 Above high normal 4.00-10.80 (K/uL) Final RBC 11/02/2022 03:27:00 3.85 3.85-5.15 (M/uL) Final Hemoglobin 11/02/2022 03:27:00 10.9 Below low normal 12.0-15.3 (g/dL) Final HCT 11/02/2022 03:27:00 36.4 36.0-45.2 (%) Final MCV 11/02/2022 03:27:00 94.5 81.5-97.5 (fL) Final MCH 11/02/2022 03:27:00 28.3 27.0-34.0 (pg) Final MCHC 11/02/2022 03:27:00 29.9 32.0-36.0 (g/dL) Final RDW 11/02/2022 03:27:00 14.9 11.5-15.5 (%) Final Platelets 11/02/2022 03:27:00 413 Above high normal 140-400 (K/uL) Final MPV 11/02/2022 03:27:00 9.5 6.6-11.1 (fL) Final Nucleated erythrocytes/100 leukocytes [Ratio] in Blood by Automated count 11/02/2022 03:27:00 0 <=0 (/100 WBCs) Final Performing Location LABORATORY [facility] [place] - [address] [place] [address]
--- OUTSIDE RECORDS SUMMARY | 2023-06-18 02:30 | External Medical Summary ---
Author Name Unknown Address Unknown Organization : Laboratory Report Ordering Provider Test Date Status NADIRA GURROLA 11/03/2022 07:09:55 Final Observation Date Value Abnormality Reference (Units ) Status Glucose Point of Care 11/03/2022 07:09:55 104 70-120 (mg/dL) Final Performing Location
--- OUTSIDE RECORDS SUMMARY | 2023-06-18 02:30 | External Medical Summary ---
Author Name Unknown Address Unknown Organization [id number]:[facility] [place] [address] [place] [address] Laboratory Report Ordering Provider Test Date Status DAVID PIÑA JR 11/03/2022 03:38:00 Final Observation Date Value Abnormality Reference (Units ) Status BUN 11/03/2022 03:38:00 20 6-20 (mg/dL) Final Creatinine 11/03/2022 03:38:00 1.1 Above high normal 0.5-1.0 (mg/dL) Final Glomerular filtration rate/1.73 sq M.predicted [Volume Rate/Area] in Serum, Plasma or Blood by Creatinine-based formula (CKD-EPI) 11/03/2022 03:38:00 50 Below low normal >=60 (mL/min) Final Performing Location [facility] [place] [address] [place] [address]
--- OUTSIDE RECORDS SUMMARY | 2023-06-18 02:30 | External Medical Summary ---
Author Name Unknown Address Unknown Organization : Laboratory Report Ordering Provider Test Date Status NADIRA GURROLA 11/03/2022 21:15:45 Final Observation Date Value Abnormality Reference (Units ) Status Glucose Point of Care 11/03/2022 21:15:45 119 70-120 (mg/dL) Final Performing Location
--- OUTSIDE RECORDS SUMMARY | 2023-06-18 02:30 | External Medical Summary ---
Author Name Unknown Address Unknown Organization : Laboratory Report Ordering Provider Test Date Status NADIRA GURROLA 11/02/2022 05:46:31 Final Observation Date Value Abnormality Reference (Units ) Status Glucose Point of Care 11/02/2022 05:46:31 152 Above high normal 70-120 (mg/dL) Final Performing Location
--- OUTSIDE RECORDS SUMMARY | 2023-06-18 02:30 | External Medical Summary ---
Author Name Unknown Address Unknown Organization : Laboratory Report Ordering Provider Test Date Status NADIRA GURROLA 11/02/2022 21:08:39 Final Observation Date Value Abnormality Reference (Units ) Status Glucose Point of Care 11/02/2022 21:08:39 115 70-120 (mg/dL) Final Performing Location
--- OUTSIDE RECORDS SUMMARY | 2023-06-18 02:30 | External Medical Summary ---
Author Name Unknown Address Unknown Organization K01:LABORATORY [facility] [place] - [address] [facility] [address] Laboratory Report Ordering Provider Test Date Status MEAGAN PIÑAJOHN QUINONES 11/05/2022 05:10:00 Final Observation Date Value Abnormality Reference (Units ) Status WBC, Total 11/05/2022 05:10:00 17.65 Above high normal 4.00-10.80 (K/uL) Final RBC 11/05/2022 05:10:00 3.63 3.85-5.15 (M/uL) Final Hemoglobin 11/05/2022 05:10:00 10.2 Below low normal 12.0-15.3 (g/dL) Final HCT 11/05/2022 05:10:00 33.1 Below low normal 36.0-45.2 (%) Final MCV 11/05/2022 05:10:00 91.2 81.5-97.5 (fL) Final MCH 11/05/2022 05:10:00 28.1 27.0-34.0 (pg) Final MCHC 11/05/2022 05:10:00 30.8 32.0-36.0 (g/dL) Final RDW 11/05/2022 05:10:00 14.7 11.5-15.5 (%) Final Platelets 11/05/2022 05:10:00 464 Above high normal 140-400 (K/uL) Final MPV 11/05/2022 05:10:00 9.4 6.6-11.1 (fL) Final Nucleated erythrocytes/100 leukocytes [Ratio] in Blood by Automated count 11/05/2022 05:10:00 0 <=0 (/100 WBCs) Final Performing Location LABORATORY [facility] [place] - [address] [place] [address]
--- OUTSIDE RECORDS SUMMARY | 2023-06-18 02:30 | External Medical Summary ---
Author Name Unknown Address Unknown Organization K01:[facility] [place] [facility] [address] [facility] [address] Laboratory Report Ordering Provider Test Date Status AYANADAVID JR 11/03/2022 03:38:00 Final Observation Date Value Abnormality Reference (Units ) Status WBC, Total 11/03/2022 03:38:00 21.28 Above high normal 4.00-10.80 (K/uL) Final RBC 11/03/2022 03:38:00 3.41 3.85-5.15 (M/uL) Final Hemoglobin 11/03/2022 03:38:00 9.8 Below low normal 12.0-15.3 (g/dL) Final HCT 11/03/2022 03:38:00 32.6 Below low normal 36.0-45.2 (%) Final MCV 11/03/2022 03:38:00 95.6 81.5-97.5 (fL) Final MCH 11/03/2022 03:38:00 28.7 27.0-34.0 (pg) Final MCHC 11/03/2022 03:38:00 30.1 32.0-36.0 (g/dL) Final RDW 11/03/2022 03:38:00 15.2 11.5-15.5 (%) Final Platelets 11/03/2022 03:38:00 356 140-400 (K/uL) Final MPV 11/03/2022 03:38:00 9.6 6.6-11.1 (fL) Final Nucleated erythrocytes/100 leukocytes [Ratio] in Blood by Automated count 11/03/2022 03:38:00 0 <=0 (/100 WBCs) Final Performing Location [facility] [place] [address] [place] [address]
--- OUTSIDE RECORDS SUMMARY | 2023-06-18 02:30 | External Medical Summary ---
Author Name Unknown Address Unknown Organization K01:[facility]ORY [facility] [place] - [address] [address] Laboratory Report Ordering Provider Test Date Status DAVID PIÑA JR 11/05/2022 05:10:00 Final Observation Date Value Abnormality Reference (Units ) Status BUN 11/05/2022 05:10:00 27 Above high normal 6-20 (mg/dL) Final Creatinine 11/05/2022 05:10:00 1.2 Above high normal 0.5-1.0 (mg/dL) Final Glomerular filtration rate/1.73 sq M.predicted [Volume Rate/Area] in Serum, Plasma or Blood by Creatinine-based formula (CKD-EPI) 11/05/2022 05:10:00 44 Below low normal >=60 (mL/min) Final Performing Location LABORATORY [facility] [place] - [address] [place] [address]
--- OUTSIDE RECORDS SUMMARY | 2023-06-18 02:30 | External Medical Summary ---
Author Name Unknown Address Unknown Organization : Laboratory Report Ordering Provider Test Date Status NADIRA GURROLA 11/01/2022 16:03:17 Final Observation Date Value Abnormality Reference (Units ) Status Glucose Point of Care 11/01/2022 16:03:17 146 Above high normal 70-120 (mg/dL) Final Performing Location
--- OUTSIDE RECORDS SUMMARY | 2023-06-18 02:30 | External Medical Summary ---
Author Name Unknown Address Unknown Organization : Laboratory Report Ordering Provider Test Date Status NADIRA GURROLA 11/04/2022 11:56:18 Final Observation Date Value Abnormality Reference (Units ) Status Glucose Point of Care 11/04/2022 11:56:18 147 Above high normal 70-120 (mg/dL) Final Performing Location
--- OUTSIDE RECORDS SUMMARY | 2023-06-18 02:30 | External Medical Summary ---
Author Name Unknown Address Unknown Organization : Laboratory Report Ordering Provider Test Date Status NADIRA GURROLA 11/03/2022 11:46:37 Final Observation Date Value Abnormality Reference (Units ) Status Glucose Point of Care 11/03/2022 11:46:37 132 Above high normal 70-120 (mg/dL) Final Performing Location
--- OUTSIDE RECORDS SUMMARY | 2023-06-18 02:30 | External Medical Summary ---
Author Name Unknown Address Unknown Organization : Laboratory Report Ordering Provider Test Date Status NADIRA GURROLA 11/02/2022 11:11:24 Final Observation Date Value Abnormality Reference (Units ) Status Glucose Point of Care 11/02/2022 11:11:24 146 Above high normal 70-120 (mg/dL) Final Performing Location
--- OUTSIDE RECORDS SUMMARY | 2023-06-18 02:30 | External Medical Summary ---
Author Name Unknown Address Unknown Organization : Laboratory Report Ordering Provider Test Date Status NADIRA GURROLA 11/02/2022 16:44:42 Final Observation Date Value Abnormality Reference (Units ) Status Glucose Point of Care 11/02/2022 16:44:42 119 70-120 (mg/dL) Final Performing Location
--- OUTSIDE RECORDS SUMMARY | 2023-06-18 02:30 | External Medical Summary ---
Author Name Unknown Address Unknown Organization : Laboratory Report Ordering Provider Test Date Status NADIRA GURROLA 11/01/2022 14:06:51 Final Observation Date Value Abnormality Reference (Units ) Status Glucose Point of Care 11/01/2022 14:06:51 162 Above high normal 70-120 (mg/dL) Final Performing Location
--- OUTSIDE RECORDS SUMMARY | 2023-06-18 02:30 | External Medical Summary ---
Author Name Unknown Address Unknown Organization K01:LABORATORY [facility] [place] - [address] [address] Laboratory Report Ordering Provider Test Date Status DAVID PIÑA JR 11/04/2022 04:21:00 Final Observation Date Value Abnormality Reference (Units ) Status BUN 11/04/2022 04:21:00 26 Above high normal 6-20 (mg/dL) Final Creatinine 11/04/2022 04:21:00 1.3 Above high normal 0.5-1.0 (mg/dL) Final Glomerular filtration rate/1.73 sq M.predicted [Volume Rate/Area] in Serum, Plasma or Blood by Creatinine-based formula (CKD-EPI) 11/04/2022 04:21:00 42 Below low normal >=60 (mL/min) Final Performing Location LABORATORY [facility] [place] - [address] [place] [address]
--- OUTSIDE RECORDS SUMMARY | 2023-06-18 02:30 | External Medical Summary ---
Author Name Unknown Address Unknown Organization : Laboratory Report Ordering Provider Test Date Status NADIRA GURROLA 11/05/2022 07:37:00 Final Observation Date Value Abnormality Reference (Units ) Status Glucose Point of Care 11/05/2022 07:37:00 129 Above high normal 70-120 (mg/dL) Final Performing Location
--- OUTSIDE RECORDS SUMMARY | 2023-06-18 02:30 | External Medical Summary ---
Author Name Unknown Address Unknown Organization : Laboratory Report Ordering Provider Test Date Status NADIRA GURROLA 11/04/2022 07:28:10 Final Observation Date Value Abnormality Reference (Units ) Status Glucose Point of Care 11/04/2022 07:28:10 131 Above high normal 70-120 (mg/dL) Final Performing Location
--- OUTSIDE RECORDS SUMMARY | 2023-06-18 02:30 | External Medical Summary ---
Author Name Unknown Address Unknown Organization : Laboratory Report Ordering Provider Test Date Status NADIRA GURROLA 11/03/2022 16:24:27 Final Observation Date Value Abnormality Reference (Units ) Status Glucose Point of Care 11/03/2022 16:24:27 123 Above high normal 70-120 (mg/dL) Final Performing Location
--- OUTSIDE RECORDS SUMMARY | 2023-06-18 02:30 | External Medical Summary ---
Author Name Unknown Address Unknown Organization : Laboratory Report Ordering Provider Test Date Status NADIRA GURROLA 11/01/2022 22:02:46 Final Observation Date Value Abnormality Reference (Units ) Status Glucose Point of Care 11/01/2022 22:02:46 141 Above high normal 70-120 (mg/dL) Final Performing Location
--- OUTSIDE RECORDS SUMMARY | 2023-06-18 02:31 | External Medical Summary | Summary of Care ---
Author Name Unknown Organization [place] [address] Care Team Providers Care Nitrocellulose Maker Name Role Phone Marcela Pinto MD Primary Care Provider + Reason for Visit * Reason Comments eRx-Medication Refill Encounter Details Date Type Department Care Team Description 10/16/2022 Refill General Internal Medicine [facility] [address] [facility] [place] [address] Marcela Pinto MD [address] [place] [address] Hyperthyroidism; GENERAL OSTEOARTHROSIS Allergies Active Allergy Reactions Severity Noted Date Comments Valsartan 07/10/2010 Enalapril 05/21/2006 Escitalopram Oxalate Nausea/vomiting 10/11/2009 Nauseated Iodinated Contrast Media Nausea/vomiting 2009 IV Contrast Iodine Hives 12/18/2009 IV Contrast Metoprolol Tartrate 11/18/2006 Made pulse low [place] Oil-Black Currant-Vit E 07/10/2010 Verapamil 03/21/2004 Bupropion Hcl 10/30/2009 Makes pt sick in the stomach documented as of this encounter (statuses as of 10/18/2022) Medications Medication Sig Dispensed Refills Start Date End Date Status VITAMIN D 1000 UNITS PO TABS one tablet daily 0 2 Active LUMIGAN 0.01 % OP SOLN INSTILL 1 DROP BY TOPICAL ROUTE EVERY BEDTIME 4 5 Active AZOPT 1 % OP SUSP INSTILL 1 DROP BY OPHTHALMIC ROUTE 2 TIMES EVERY DAY INTO BOTH EYES 4 5 Active Probiotic Product (PROBIOTIC DAILY) Capsule Take 1 Cap by mouth daily. 0 5 Active oxygen GAS Use 4 L/min(Oxygen) as directed. Uses 2 LPM during the day and 4 LPM at night 0 Active Multiple Vitamins-Minerals (ONE DAILY MULTIVITAMIN WOMEN) TABS one pill each day 0 7 Active [facility] SENNA 8.6 MG Tablet TAKE 2 TABLETS BY MOUTH EVERY EVENING FOR 10 DAYS NEEDED FOR CONSTIPATION 0 8 Active docusate sodium (COLACE) 100 MG Capsule [...] Respimat 1.25 MCG/ACT Inhalation Aerosol Solution (Tiotropium [place] Monohydrate) Inhale 2 Puffs by mouth in [...] 64 MG Oral Tablet Delayed Release (Mag-64) 1 Tablet . 0 2 Active Klor-Con M20 20 MEQ [...] Additional Information Patient not taking.Reported on 10/15/2022 Ipratropium-[place] rol 20-100 MCG/ACT Inhalation Aerosol Solution [...] EVERY DAY 45 Tablet 3 2 Active Ciprofloxacin HCl 500 MG Oral Tablet (Cipro) Take 1 Tablet (500 mg) by mouth in the morning and 1 Tablet (500 mg) before bedtime. 80 Tablet 0 2 11/03/19 23 Active metroNIDAZOLE 500 MG Oral Tablet Take 1 Tablet (500 mg) by mouth in the morning and 1 Tablet (500 mg) at noon and 1 Tablet (500 mg) before bedtime. 120 Tablet 0 2 11/03/19 23 Active HYDROcodone-Acetam inophen 5-325 MG Oral TabletIndications: Generalized osteoarthritis Take 1 Tablet by mouth every 6 hours as needed for Pain, Mild. 120 Tablet 0 3 Active Promethazine HCl 25 MG Oral Tablet (Phenergan)Indicat ions:Generalized osteoarthritis TAKE 1 TABLET BY MOUTH EVERY 6 HOURS NEEDED FOR NAUSEA 60 Tablet 2 3 Active Promethazine HCl 25 MG Oral Tablet (Phenergan)Indicat ions:Generalized osteoarthritis TAKE 1 TABLET BY MOUTH EVERY 6 HOURS NEEDED FOR NAUSEA 60 Tablet 2 2 10/18/19 23 Discontinued documented as of this encounter (statuses as of 10/18/2022) Active Problems Problem Noted Date Protein-calorie malnutrition [...] as of this encounter (statuses as of 10/18/2022) Resolved Problems Problem Noted Date Resolved Date [...] Hypoxemia 10/08/2011 10/30/2015 Genetic Sleep Disorder Research Other*[id number] 07/25/2011 05/15/2016 COPD, moderate 07/19/2011 07/28/2019 Overview: [...] as of this encounter (statuses as of 10/18/2022) Immunizations Name Administration Dates Next Due COVID-19 mRNA, LNP-s, No Pre serve, 2-Dose Series (Pfizer) 08/21/2021,12/22/2020,2020 COVID-19, LNP-s, No Preserve , Tyler-sucrose, Ages 12+ (Pfizer) 04/16/2022 Hepatitis B, 20+ yrs 10/01/2017,04/21/2017,03/20 Pneumococcal Conjugate Vacc, 13 Valent (Prevnar) 03/28/2015 Pneumococcal Conjugate Vacci ne, 20-valent ([id number]) 04/01/2022 Pneumococcal Polysaccharide PPV23 (Pneumovax) 05/21/2006 Seasonal [...] Telephone Encounter - Marcela Pinto MD - 10/18/2022 11:19 AM ESTSigned Prescriptions: Disp Refills Promethazine HCl 25 MG Oral Tablet (Phener*60 Tab*2 Sig: TAKE 1 TABLET BY MOUTH EVERY 6 HOURS NEEDED FOR NAUSEA Authorizing Provider: MARCELA PINTO Refused Prescriptions: Disp Refills metroNIDAZOLE 500 MG Oral Tablet (Flagyl) 120 Ta*0 Sig: TAKE 1 TABLET BY MOUTH IN THE MORNING AND 1 TABLET AT< BR> NOON AND 1 TABLET BEFORE BEDTIME. Refused By: MAYELIN CHAVES Reason for Refusal: Refill Not Appropriate methIMAzole 10 MG Oral Tablet (Tapazole) 90 Tab*1 Sig: TAKE 1 TABLET BY MOUTH EVERY DAY Refused By: MAYELIN CHAVES Reason for Refusal: Dose needs clarification Reason for Refusal Comment: on 5mg * Telephone Encounter - [facility] - 10/18/2022 9:54 AM ESTPending Prescriptions: Disp Refills Promethazine HCl 25 MG Oral Tablet (Phener*60 Tab*2 Sig: TAKE 1 TABLET BY MOUTH EVERY 6 HOURS NEEDED FOR NAUSEA Refused Prescriptions: Disp Refills metroNIDAZOLE 500 MG Oral Tablet (Flagyl) 120 Ta*0 Sig: TAKE 1 TABLET BY MOUTH IN THE MORNING AND 1 TABLET AT NOON AND 1 TABLET BEFORE BEDTIME. Re fused By: MAYELIN CHAVES Reason for Refusal: Refill Not Appropriate methIMAzole 10 MG Oral Tablet (Tapazole) 90 Tab*1 Sig: TAKE 1 TABLET BY MOUTH EVERY DAY Refused By: MAYELIN CHAVES Reason for Refusal: Dose needs clarification Reason for Refusal Comment: on 5mg * Telephone Encounter - Mayelin Chaves RP - 10/18/2022 9:52 AM EST [facility] is currently not authorized to approve refills for the pended medication(s) per refillprotocol. Please approve if appropriate. Thanks, Mayelin Chaves PharmD Clinical Pharmacist [facility] [phone] 10/18/2022, 9:52 AM * Telephone Encounter - Mayelin Chaves RP - 10/18/2022 9:51 AM EST Pending Prescriptions: Disp Refills metroNIDAZOLE 500 MG Oral Tablet (Flagyl)*120 Ta*0 Sig: TAKE 1 TABLET BY MOUTH IN THE MORNING AND 1 TABLET AT NOON AND 1 TABLET BEFORE BEDTIME. methIMAzole 10 MG Oral Tablet (Tapazole) *90 Tab*1 Sig: TAKE 1 TABLET BY MOUTH EVERY DAY Promethazine HCl 25 MG Oral Tablet (Phene*60 Tab*2 Sig: TAKE 1 TABLET BY MOUTH EVERY 6 HOURS NEEDED FOR NAUSEA Last Visit: 10/10/2022 (in office), 08/08/2020 (telemedicine) Next Visit: 01/07/2023 If no future appointments scheduled, and last appointment is greater than a year ago, please schedule patient for a follow-up appointment Last date the medication was ordered: 09/23/22 Pharmacy: [id number] [id number] [facility] Is this request for a controlled substance? [...] Labs: Lab Results Component Value Date/Time CREAT 0.84 08/19/2022 12:00 AM CREAT 1.0 05/27/2020 04:51 PM POTASSIUM 3.8 08/19/2022 12:00 AM POTASSIUM 4.0 05/27/2020 04:51 PM TSH 1.13 02/19/2022 04:04 PM TSH 0.965 12/05/2020 12:00 AM TSH 0.42 07/27/2018 11:32 AM LDLCALC 76 08/07/2021 09:05 AM LDLCALC 106 12/06/2020 05:15 AM LDLCALC 95 07/27/2018 11:32 AM LDLDIRECT 85 12/05/2020 12:00 AM LDLDIRECT 97 07/27/2018 11:32 AM ALT 6 (L) 07/11/2022 02:15 PM ALT 15 05/27/2020 04:51 PM HGBA1C 6.8 (H) 06/07/2022 06:28 AM HGBA1C 6.8 12/06/2020 05:15 AM HGBA1C 6.6 (H) 08/26/2019 02:55 PM documented in this encounter Plan of Treatment Upcoming Encounters Date Type Specialty Care Team Description 10/29/2022 Nurse Only Ancillary Espinoza, Pre Surgical Covid Testing Connie [address] [place] [id number] 10/31/2022 Hospital Encounter [facility] [address] [facility] [phone] 11/01/2022 Hospital Encounter Surgery Dionte Snyder MD [address] [place] [address] 11/01/2022 Surgery Surgery Dionte Snyder MD [address] [place] [address] LAPAROSCOPIC PARTIAL COLECTOMY WITH COLOPROCTOSTOMY 11/04/2022 Office Visit Hematology Oncology Ida Cueva CRNP [address] [place], [place] [id number] 11/08/2022 Scheduled Telephone General Surgery Colorectal, Nurse Follow Up Phone Call Schedule [address] [place] [address] 11/26/2022 Office Visit General Surgery Teresita Padron PA-C [address] [place] [address] 12/23/2022 Office Visit Orthopedics Eliezer Gifford, DO [address] [place] [address] 01/03/2023 Office Visit Cardiology Hammad Lopez, DO [address] [place] [address] 01/07/2023 Office Visit Internal Medicine Marcela Pinto MD [address] [place] [address] Scheduled Procedures Name Priority Associated Diagnoses Date/Ti me LAPAROSCOPIC PARTIAL COLECTO MY WITH COLOPROCTOSTOMY Colovesical fistula 11/01/2022 9:22 AM EST CYSTOURETHROSCOPY WITH INSERTION URETERAL STENT DUAL SERVICE Colovesical fistula 11/01/2022 9:22 AM EST Health Maintenance Due Date Last Done Comments Zoster Vaccines (3 of 3) 05/27/2022 04/01/2022, 06/14 COVID-19 Vaccine (5 - Booster for Pfizer series) 06/11/2022 04/16/2022, 08/21/2021, 12/22/2020, Additional history exists DIABETES-HGBA1C EVERY 6 MONTHS 12/08/2022 06/07/2022, 02/19/2022, 08/23/2021, Additional history exists GFR - Renal Function 02/16/2023 08/19/2022, 08/12/2022, 08/06/2022, Additional history exists Alb / Creat Ratio 02/19/2023 02/19/2022, , 07/27/2018, Additional history exists DIABETES-EYE EXAM 03/08/2023 03/08/2022, , 08/07/2020, Additional history exists CKD PHOS USE SMARTSET 84772 08/05/202307/14, 02/19/2022, 03/09/2021, Additional history exists CKD HGB USE SMARTSET 31733 08/19/202308/19, 08/12/2022, 08/06/2022, Additional history exists DIABETES-FOOT EXAM 10/10/2023 10/10/2022, 0 11/19/2021, 12/21/2020, Additional history exists Depression Screening, Annual for Pts 12 and Over 10/10/2023 10/10/2022 O2 ASSESSMENT COMPLETED IN PAST YEAR FOR COPD 10/10/2023 10/10/2022 DXA Scan 08/08/2025 08/08/2020, 04/13, 06/19/2010, Additional [...] without mention of thyrotoxic crisis or storm GENERAL OSTEOARTHROSIS Generalized osteoarthrosis, unspecified site Colovesical fistula Intestinovesical fistula documented in this encounter Advance Directives Latest Code Status on File Code Status Date Activated Date Inactivated Comments Full Code 07/25/2022 12:40 PM 07/29/2022 7:19 PM Th is order reflects the patients wishes and were consensually agreed upon. Question Answer Comments Discussion of Advance Directives occurred with: Patient Code Status History Code Status Date Activated Date Inactivated Comments Full Code 06/06/2022 12:31 PM 06/10/2022 4:44 PM Question Answer Comments Discussion of Advance Direct daniel occurred with: Not Discussed Care Teams Nitrocellulose Maker Relationship Specialty Start Date End Date Marcela Pinto MD [address] [facility] [place] [address] PCP - General Internal Medicine 08/04/14 documented as of this encounter
--- OUTSIDE RECORDS SUMMARY | 2023-06-18 02:31 | External Medical Summary ---
Author Name Unknown Address Unknown Organization : Laboratory Report Ordering Provider Test Date Status NADIRA GURROLA 11/01/2022 08:27:24 Final Observation Date Value Abnormality Reference (Units ) Status Glucose Point of Care 11/01/2022 08:27:24 126 Above high normal 70-120 (mg/dL) Final Performing Location
--- OUTSIDE RECORDS SUMMARY | 2023-06-18 02:31 | External Medical Summary ---
Author Name Unknown Address Unknown Organization : Laboratory Report Ordering Provider Test Date Status NADIRA GURROLA 11/01/2022 11:47:05 Final Observation Date Value Abnormality Reference (Units ) Status Glucose Point of Care 11/01/2022 11:47:05 90 70-120 (mg/dL) Final Performing Location
--- OUTSIDE RECORDS SUMMARY | 2023-06-18 02:31 | External Medical Summary ---
Author Name Unknown Address Unknown Organization : Laboratory Report Ordering Provider Test Date Status NADIRA GURROLA 11/01/2022 04:51:36 Final Observation Date Value Abnormality Reference (Units ) Status Glucose Point of Care 11/01/2022 04:51:36 97 70-120 (mg/dL) Final Performing Location
--- OUTSIDE RECORDS SUMMARY | 2023-06-18 02:31 | External Medical Summary | Summary of Care ---
Author Name Unknown Organization [place] [address] Care Team Providers Care Collar Separator Name Role Phone Marcela Pinto MD Primary Care Provider + Reason for Visit * Reason Onset Date Comments Advice 10/30/2022 Encounter Details Date Type Department Care Team Description 10/30/2022 Telephone General Surgery, [place] [address] [phone] Jagruti Meredith, [facility] [address] [place] [address] Advice Allergies Active Allergy Reactions Severity Noted Date Comments Valsartan 07/10/2010 Enalapril 05/21/2006 Escitalopram Oxalate Nausea/vomiting 10/11/2009 Nauseated Iodinated Contrast Media Nausea/vomiting 2009 IV Contrast Iodine Hives 12/18/2009 IV Contrast Metoprolol Tartrate 11/18/2006 Made pulse low [place] Oil-Black Currant-Vit E 07/10/2010 Verapamil 03/21/2004 Bupropion Hcl 10/30/2009 Makes pt sick in the stomach documented as of this encounter (statuses as of 10/30/2022) Medications Medication Sig Dispensed Refills Start Date End Date Status VITAMIN D 1000 UNITS PO TABS one tablet daily 0 07/27/2012 Active LUMIGAN 0.01 % OP SOLN INSTILL 1 DROP BY TOPICAL ROUTE EVERY BEDTIME 4 10/29/2014 Active AZOPT 1 % OP SUSP INSTILL 1 DROP BY OPHTHALMIC ROUTE 2 TIMES EVERY DAY INTO BOTH EYES 4 10/29/2014 Active Probiotic Product (PROBIOTIC DAILY) Capsule Take 1 Cap by mouth daily. 0 02/06/2015 Active oxygen GAS Use 4 L/min(Oxygen) as directed. Uses 2 LPM during the day and 4 LPM at night 0 Active Multiple Vitamins-Minerals (ONE DAILY MULTIVITAMIN WOMEN) TABS one pill each day 0 04/21/2017 Active [facility] SENNA 8.6 MG Tablet TAKE 2 TABLETS BY MOUTH EVERY EVENING FOR 10 DAYS NEEDED FOR CONSTIPATION 0 11/26/2017 Active docusate sodium (COLACE) 100 MG Capsule [...] Respimat 1.25 MCG/ACT Inhalation Aerosol Solution (Tiotropium Am[place] Monohydrate) Inhale 2 Puffs by mouth in [...] Active Sertraline HCl 25 MG Oral Tablet (Zoloft)Indications: [...] Delayed Release (Mag-64) 1 Tablet . 0 07/25/2022 Active Klor-Con M20 20 MEQ [...] EVERY DAY 45 Tablet 3 09/19/2022 Active Ciprofloxacin HCl 500 MG Oral Tablet (Cipro) Take 1 Tablet (500 mg) by mouth in the morning and 1 Tablet (500 mg) before bedtime. 80 Tablet 0 09/24/2022 3 Active metroNIDAZOLE 500 MG Oral Tablet Take 1 Tablet (500 mg) by mouth in the morning and 1 Tablet (500 mg) at noon and 1 Tablet (500 mg) before bedtime. 120 Tablet 0 09/24/2022 3 Active HYDROcodone-Acetamin ophen 5-325 MG Oral TabletIndications:Ge neralized osteoarthritis Take 1 Tablet by mouth every 6 hours as needed for Pain, Mild. 120 Tablet 0 10/15/2022 Active Promethazine HCl 25 MG Oral Tablet (Phenergan)Indicatio ns:Generalized osteoarthritis TAKE 1 TABLET BY MOUTH EVERY 6 HOURS NEEDED FOR NAUSEA 60 Tablet 2 10/18/2022 Active documented as of this encounter (statuses as of 10/30/2022) Active Problems Problem Noted Date Protein-calorie malnutrition [...] as of this encounter (statuses as of 10/30/2022) Resolved Problems Problem Noted Date Resolved Date [...] Hypoxemia 10/08/2011 10/30/2015 Genetic Sleep Disorder Research Other*[id number] 07/25/2011 05/15/2016 COPD, moderate 07/19/2011 07/28/2019 Overview: [...] as of this encounter (statuses as of 10/30/2022) Immunizations Name Administration Dates Next Due COVID-19 mRNA, LNP-s, No Pre serve, 2-Dose Series ([employer]) 08/21/2021,12/22/2020,2020 COVID-19, LNP-s, No Preserve , Tyler-sucrose, Ages 12+ (Pfizer) 04/16/2022 Hepatitis B, 20+ yrs 10/01/2017,04/21/2017,03/20 Pneumococcal Conjugate Vacc, 13 Valent (Prevnar) 03/28/2015 Pneumococcal Conjugate Vacci ne, 20-valent ([id number]) 04/01/2022 Pneumococcal Polysaccharide PPV23 (Pneumovax) 05/21/2006 Seasonal [...] (15 years old or older) Yes 07/25/20 22 Cognitive Status Response Date of Assessm ent Because of a physical, menta l, or emotional condition, do you have serious difficulty concentrating, remembering, or making decisions? (5 years old or older No 07/25/2022 documented as of this encounter Miscellaneous Notes * Telephone Encounter - Jagruti Meredith, NICOL - 10/30/2022 11:02 AM EST Patient's daughter called and had questions concerning her mothers prep that's to start tomorrow she wanted to know if she should be on clear liquids. I left her know that she should start clear liquids tomorrow morning. Being admitted the day prior to surgery for her bowel prep. documented in this encounter Plan of Treatment Upcoming Encounters Date Type Specialty Care Team Description 10/31/2022 Hospital Encounter Dionte Snyder MD [address], [place] [phone] 11/01/2022 Hospital Encounter Surgery Dionte Snyder MD [address] [place] [address] 11/01/2022 Surgery Surgery Dionte Snyder MD [address], [place] [phone] LAPAROSCOPIC PARTIAL COLECTOMY WITH COLOPROCTOSTOMY 11/04/2022 Office Visit Hematology Oncology Ida Cueva CRNP [address] [place] [address] 11/08/2022 Scheduled Telephone General Surgery Colorectal, Nurse Follow Up Phone Call Schedule [address] [place] [address] 11/26/2022 Office Visit General Surgery Teresita Padron PA-C [address] [place] [address] 12/23/2022 Office Visit Orthopedics Eliezer Gifford, DO [address] [facility] [address] 01/03/2023 Office Visit Cardiology Hammad Lopez, DO [address] [facility] [place] [address] 01/07/2023 Office Visit Internal Medicine Marcela Pinto MD [address] [facility], [place] [phone] Scheduled Procedures Name Priority Associated Diagnoses Date/Ti me LAPAROSCOPIC PARTIAL COLECTO MY WITH COLOPROCTOSTOMY Colovesical fistula 11/01/2022 9:02 AM EST CYSTOURETHROSCOPY WITH INSERTION URETERAL STENT DUAL SERVICE Colovesical fistula 11/01/2022 9:02 AM EST Health Maintenance Due Date Last Done Comments Alpha-1 Antitrypsin 1956 Zoster Vaccines (3 of 3) 05/27/2022 04/01/2022, 06/14 COVID-19 Vaccine (5 - Booster for Pfizer series) 06/11/2022 04/16/2022, 08/21/2021, 12/22/2020, Additional history exists HgA1C 12/08/2022 06/07/2022, 02/10, 08/23/2021, Additional history exists GFR - Renal Function 02/16/2023 08/19/2022, 08/12/2022, 08/06/2022, Additional history exists Alb / Creat Ratio 02/19/2023 02/19/2022, , 07/27/2018, Additional history exists DIABETES-EYE EXAM 03/08/2023 03/08/2022, , 08/07/2020, Additional history exists CKD PHOS USE SMARTSET 13438 08/05/202307/14, 02/19/2022, 03/09/2021, Additional history exists CKD HGB USE SMARTSET 26692 08/19/202308/19, 08/12/2022, 08/06/2022, Additional history exists DIABETES-FOOT [...] daniel occurred with: Not Discussed Care Teams Collar Separator Relationship Specialty Start Date End Date Marcela Pinto MD [address] [facility] [place], [place] [address] PCP - General Internal Medicine 08/04/14 documented as of this encounter
--- OUTSIDE RECORDS SUMMARY | 2023-06-18 02:31 | External Medical Summary ---
Author Name Unknown Address Unknown Organization [id number]:LABORATORY [facility] - [address] [place] [address] Laboratory Report Ordering Provider Test Date Status DAVID PIÑA JR 11/01/2022 05:13:00 Final Observation Date Value Abnormality Reference (Units ) Status BUN 11/01/2022 05:13:00 19 6-20 (mg/dL) Final Creatinine 11/01/2022 05:13:00 0.9 0.5-1.0 (mg/dL) Final Glomerular filtration rate/1.73 sq M.predicted [Volume Rate/Area] in Serum, Plasma or Blood by Creatinine-based formula (CKD-EPI) 11/01/2022 05:13:00 67 >=60 (mL/min) Final Performing Location LABORATORY [facility] - [address] [facility] [address]
--- OUTSIDE RECORDS SUMMARY | 2023-06-18 02:31 | External Medical Summary ---
Author Name Unknown Address Unknown Organization : Laboratory Report Ordering Provider Test Date Status NADIRA GURROLA 10/31/2022 23:44:58 Final Observation Date Value Abnormality Reference (Units ) Status Glucose Point of Care 10/31/2022 23:44:58 120 70-120 (mg/dL) Final Performing Location
--- OUTSIDE RECORDS SUMMARY | 2023-06-18 02:31 | External Medical Summary ---
Author Name Unknown Address Unknown Organization K01:[place] [place] [address] [facility] [address] Laboratory Report Ordering Provider Test Date Status MEAGAN PIÑAJOHN QUINONES 11/01/2022 05:13:00 Final Observation Date Value Abnormality Reference (Units ) Status WBC, Total 11/01/2022 05:13:00 16.36 Above high normal 4.00-10.80 (K/uL) Final RBC 11/01/2022 05:13:00 3.48 3.85-5.15 (M/uL) Final Hemoglobin 11/01/2022 05:13:00 9.8 Below low normal 12.0-15.3 (g/dL) Final HCT 11/01/2022 05:13:00 32.8 Below low normal 36.0-45.2 (%) Final MCV 11/01/2022 05:13:00 94.3 81.5-97.5 (fL) Final MCH 11/01/2022 05:13:00 28.2 27.0-34.0 (pg) Final MCHC 11/01/2022 05:13:00 29.9 32.0-36.0 (g/dL) Final RDW 11/01/2022 05:13:00 15.0 11.5-15.5 (%) Final Platelets 11/01/2022 05:13:00 402 Above high normal 140-400 (K/uL) Final MPV 11/01/2022 05:13:00 9.3 6.6-11.1 (fL) Final Nucleated erythrocytes/100 leukocytes [Ratio] in Blood by Automated count 11/01/2022 05:13:00 0 <=0 (/100 WBCs) Final Performing Location [facility] [place] [address] [facility] [address]
--- OUTSIDE RECORDS SUMMARY | 2023-06-18 02:31 | External Medical Summary ---
Author Name Unknown Address Unknown Organization K01:[facility]ATORY [facility] - [address] [facility] [address] Laboratory Report Ordering Provider Test Date Status NOE GUSTAFSON 10/18/2022 12:49:32 Final Observation Date Value Abnormality Reference (Units ) Status Bacteria identified in Unspecified specimen by Culture 10/18/2022 12:49:32 [id number]^ESCHE RICHIA COLI ESBL Abnormal Final Performing Location [facility] - [address] [facility] [address] Ordering Provider Test Date Status NOE GUSTAFSON 10/18/2022 12:49:32 Final Observation Date Value Abnormality Reference (Units ) Status Ampicillin 10/18/2022 12:49:32 >=32 Resistant Final Ampicillin + Sulbactam 10/18/2022 12:49:32 16 Intermediate Final Cefazolin 10/18/2022 12:49:32 >=64 Resistant Final Cefepime susceptibility 10/18/2022 12:49:32 Resistant Final Performing Location [facility] - [address] [facility] [address] Ordering Provider Test Date Status NOE GUSTAFSON 10/18/2022 12:49:32 Final Observation Date Value Abnormality Reference (Units ) Status Ertapenem [Susceptibility] 10/18/2022 12:49:32 27 Susceptible Susceptible >21 , Intermediate <=21 , Resistant <=18 Final Performing Location [facility] - [address] [facility] [address]
--- OUTSIDE RECORDS SUMMARY | 2023-06-18 02:31 | External Medical Summary | Summary of Care ---
Author Name Unknown Organization [place] [address] Care Team Providers Care Wood Flour Miller Name Role Phone Marcela Pinto MD Primary Care Provider + Reason for Visit * Reason Onset Date Comments Medication Refill 10/15/2022 Encounter Details Date Type Department Care Team Description 10/15/2022 Refill General Internal Medicine [facility] [place] [address] [facility] [place] [address] Marcela Pinto MD [address] [facility] [place] [address] GENERAL OSTEOARTHROSIS Allergies Active Allergy Reactions Severity Noted Date Comments Valsartan 07/10/2010 Enalapril 05/21/2006 Escitalopram Oxalate Nausea/vomiting 10/11/2009 Nauseated Iodinated Contrast Media Nausea/vomiting 2009 IV Contrast Iodine Hives 12/18/2009 IV Contrast Metoprolol Tartrate 11/18/2006 Made pulse low [place] Oil-Black Currant-Vit E 07/10/2010 Verapamil 03/21/2004 Bupropion Hcl 10/30/2009 Makes pt sick in the stomach documented as of this encounter (statuses as of 10/15/2022) Medications Medication Sig Dispensed Refills Start Date [...] Respimat 1.25 MCG/ACT Inhalation Aerosol Solution (Tiotropium Russell Monohydrate) Inhale 2 Puffs by mouth in [...] the morning. 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 120 Tablet 0 3 Active HYDROcodone-Acetami nophen 5-325 MG Oral TabletIndications:G eneralized osteoarthritis Take 1 Tablet by mouth every 6 hours as needed for Pain, Mild. 120 Tablet 0 2 10/15/19 23 Discontinu ed(Refill) documented as of this encounter (statuses as of 10/15/2022) Active Problems Problem Noted Date Protein-calorie malnutrition [...] as of this encounter (statuses as of 10/15/2022) Resolved Problems Problem Noted Date Resolved Date [...] Hypoxemia 10/08/2011 10/30/2015 Genetic Sleep Disorder Research Other*[id number] 07/25/2011 05/15/2016 COPD, moderate 07/19/2011 07/28/2019 Overview: [...] as of this encounter (statuses as of 10/15/2022) Immunizations Name Administration Dates Next Due COVID-19 mRNA, LNP-s, No Pre serve, 2-Dose Series (Fliptop) 08/21/2021,12/22/2020,2020 COVID-19, LNP-s, No Preserve , Tyler-sucrose, Ages 12+ (Pfizer) 04/16/2022 Hepatitis B, 20+ yrs 10/01/2017,04/21/2017,03/20 Pneumococcal Conjugate Vacc, 13 Valent (Prevnar) 03/28/2015 Pneumococcal Conjugate Vacci ne, 20-valent ([id number]) 04/01/2022 Pneumococcal Polysaccharide PPV23 (Pneumovax) 05/21/2006 Seasonal [...] encounter Miscellaneous Notes * Telephone Encounter - Briseyda Barber MD - 10/15/2022 3:23 PM ESTSigned Prescriptions: Disp Refills HYDROcodone-Acetaminophen 5-325 MG Oral Ta*120 Ta*0 Sig: Take 1 Tablet by mouth every 6 hours as needed for Pain, Mild.Authorizing Provider: BRISEYDA BARBER--------- * Telephone Encounter - Briseyda Barber MD - 10/15/2022 3:19 PM EST I have reviewed the patients controlled substance dispensing history in the Prescription Drug Monitoring Program in compliance with the [facility] regulations before prescribing a controlled substance. * Telephone Encounter - Nicole Saeed LPN - 10/15/2022 12:37 PM EST Pending Prescriptions: Disp Refills HYDROcodone-Acetaminophen 5-325 MG Oral T*120 Ta*0 Sig: Take 1 Tablet by mouth every 6 hours as needed for Pain, Mild. Last Visit: 10/10/2022 (in office), 08/08/2020 (telemedicine) Next Visit: 01/07/2023 Last date the medication was ordered: 09/19/22 Patient Active Problem List Diagnosis Code Asthma [...] Protein-calorie malnutrition ([facility]) E46 Labs: Lab Results Component Value Date/Time CREATININE - [facility] 0.8 08/06/2022 05:50 AM CREATININE - [facility] 1.0 05/27/2020 04:51 [...] Results Component Value Date/Time POTASSIUM - [facility] 4.3 08/06/2022 05:50 AM POTASSIUM - [facility] 4.0 05/27/2020 04:51 PM POTASSIUM-OUTSIDE LAB 3.8 08/19/2022 12:00 AM Lab Results Component Value Date/Time TSH - [facility] 1.13 02/19/2022 04:04 PM TSH - [facility] 0.42 07/27/2018 11:32 [...] Results Component Value Date/Time ALT - [facility] 6 (L) 07/11/2022 02:15 PM ALT - [facility] 15 05/27/2020 04:51 PM ALT-OUTSIDE LAB 16 04/16/2017 12:00 AM Hemoglobin AIC Results: Lab Results Component Value Date/Time HEMOGLOBIN A1C - [facility] 6.8 (H) 06/07/2022 06:28 AM HEMOGLOBIN A1C - [facility] 6.8 (H) 02/19/2022 04:04 PM HEMOGLOBIN A1C - [facility] 6.8 (H) 08/23/2021 02:34 PM HEMOGLOBIN A1C - [facility] 6.6 (H) 08/26/2019 02:55 PM HEMOGLOBIN A1C - [facility] 6.8 (H) 07/27/2018 11:32 AM HEMOGLOBIN A1C - [facility] 6.2 01/14/2018 12:03 PM documented in this encounter Plan of Treatment Upcoming Encounters Date Type Specialty Care Team Description 10/29/2022 Nurse Only Ancillary Doran, Pre Surgical Covid Testing Connie [address] [place] [address] 10/31/2022 Hospital Encounter [facility] [address] [facility] [phone] 11/01/2022 Hospital Encounter Surgery Dionte Snyder MD [address] [place] [address] 11/01/2022 Surgery Surgery Dionte Snyder MD [address] [place] [address] LAPAROSCOPIC PARTIAL COLECTOMY WITH COLOPROCTOSTOMY 11/04/2022 Office Visit Hematology Oncology Ida Cueva CRNP [address] [place], [place] [phone] 11/08/2022 Scheduled Telephone General Surgery Colorectal, Nurse Follow Up Phone Call Schedule [address] [place], [place] [phone] 11/26/2022 Office Visit General Surgery Teresita Padron PA-C [address] [place] [address] 12/23/2022 Office Visit Orthopedics Eliezer Gifford S, DO [address] [place] [address] 01/03/2023 Office Visit Cardiology Hammad Lopez, DO [address] [place] [address] 01/07/2023 Office Visit Internal Medicine Marcela Pinto MD [address] [place] [address] Scheduled Procedures Name Priority Associated Diagnoses Date/Ti [...] Additional history exists CKD PHOS USE SMARTSET 54591 08/05/202307/14, 02/19/2022, 03/09/2021, Additional history exists CKD HGB USE SMARTSET 41606 08/19/202308/19, 08/12/2022, 08/06/2022, Additional history exists DIABETES-FOOT [...] Diagnosis GENERAL OSTEOARTHROSIS Generalized osteoarthrosis, unspecified site Colovesical [...] daniel occurred with: Not Discussed Care Teams Wood Flour Miller Relationship Specialty Start Date End Date Marcela Pinto MD [address] [facility] [place] [address] PCP - General Internal Medicine 08/04/14 documented as of this encounter
--- OUTSIDE RECORDS SUMMARY | 2023-06-18 02:31 | External Medical Summary ---
Author Name Unknown Address Unknown Organization : Laboratory Report Ordering Provider Test Date Status NADIRA GURROLA 10/31/2022 17:22:58 Final Observation Date Value Abnormality Reference (Units ) Status Glucose Point of Care 10/31/2022 17:22:58 146 Above high normal 70-120 (mg/dL) Final Performing Location
--- OUTSIDE RECORDS SUMMARY | 2023-06-18 02:31 | External Medical Summary ---
Author Name Unknown Address Unknown Organization K01:LABORATORY [facility] - [address] [place] [address] [place] [address] Laboratory Report Ordering Provider Test Date Status NADIRA GURROLA 10/29/2022 13:26:44 Final Observation Date Value Abnormality Reference (Units ) Status SARS Coronavirus 2 10/29/2022 13:26:44 Negative N egative Final Performing Location [facility] - [address] [place] [address]
--- OUTSIDE RECORDS SUMMARY | 2023-06-18 02:31 | External Medical Summary | Summary of Care ---
Author Name Unknown Organization [place] [address] Care Team Providers Care Rivet Tapping Machine Operator Name Role Phone Marcela Pinto MD Primary Care Provider + Reason for Visit * Reason Comments Outpatient Testing Encounter Details Date Type Department Care Team Description 10/18/2022 Laboratory Laboratory [address] [place] [phone] [place] [address] Diverticulitis of colon; Pre-op testing; Diverticulitis of intestine with abscess Allergies Active Allergy Reactions Severity Noted Date Comments Valsartan 07/10/2010 Enalapril 05/21/2006 Escitalopram Oxalate Nausea/vomiting 10/11/2009 Nauseated Iodinated Contrast Media Nausea/vomiting 2009 IV Contrast Iodine Hives 12/18/2009 IV Contrast Metoprolol Tartrate 11/18/2006 Made pulse low [place] Oil-Black Currant-Vit E 07/10/2010 Verapamil 03/21/2004 Bupropion [...] Respimat 1.25 MCG/ACT Inhalation Aerosol Solution (Tiotropium [place] Monohydrate) Inhale 2 Puffs by mouth in [...] Hypoxemia 10/08/2011 10/30/2015 Genetic Sleep Disorder Research Other*[id number] 07/25/2011 05/15/2016 COPD, moderate 07/19/2011 07/28/2019 Overview: [...] mRNA, LNP-s, No Pre serve, 2-Dose Series ([employer]) 08/21/2021,12/22/2020,2020 COVID-19, LNP-s, No Preserve , Tyler-sucrose, Ages 12+ (Pfizer) 04/16/2022 Hepatitis B, 20+ yrs 10/01/2017,04/21/2017,03/20 Pneumococcal Conjugate Vacc, 13 Valent (Prevnar) 03/28/2015 Pneumococcal Conjugate Vacci ne, 20-valent ([id number]) 04/01/2022 Pneumococcal Polysaccharide PPV23 (Pneumovax) 05/21/2006 Seasonal [...] No 07/25/2022 documented as of this encounter Plan of Treatment Upcoming Encounters Date Type Specialty Care Team Description 10/29/2022 Nurse Only Ancillary Doran, Pre Surgical Covid Testing Connie [address] [place] [address] 10/31/2022 Hospital Encounter Dionte Snyder MD [address] [place] [facility] [place] [address] 11/01/2022 Hospital Encounter Surgery Dionte Snyder MD [address] [place] [address] 11/01/2022 Surgery Surgery Dionte Snyder MD [address] [place] [address] LAPAROSCOPIC PARTIAL COLECTOMY WITH COLOPROCTOSTOMY 11/04/2022 Office Visit Hematology Oncology Ida Cueva CRNP [address] [place], [place] [phone] 11/08/2022 Scheduled Telephone General Surgery Colorectal, Nurse Follow Up Phone Call Schedule [address] [place] [address] 11/26/2022 Office Visit General Surgery Teresita Padron PA-C [address] [place] [address] 12/23/2022 Office Visit Orthopedics Eliezer Gifford, DO [address] [place] [address] 01/03/2023 Office Visit Cardiology Hammad Lopez, DO [address] [place] [address] 01/07/2023 Office Visit Internal Medicine Marcela Pinto MD 200 [place] [address] Pending Results Name Type Priority Associated Diagnoses Date /Time CULTURE, URINE, QUANTITATIVE Lab Routine Diverticulitis of colon Pre-op testing Diverticulitis of intestine with abscess 10/18/2022 12:49 PM EST Scheduled Procedures Name Priority Associated Diagnoses Date/Ti [...] Additional history exists CKD PHOS USE SMARTSET 65223 08/05/202307/14, 02/19/2022, 03/09/2021, Additional history exists CKD HGB USE SMARTSET 53460 08/19/202308/19, 08/12/2022, 08/06/2022, Additional history exists DIABETES-FOOT [...] as of this encounter Visit Diagnoses Diagnosis Diverticulitis of colon Diverticulitis of colon (without mention of hemorrhage) Pre-op testing Preoperative examination, unspecified Diverticulitis of intestine with abscess Colovesical fistula Intestinovesical fistula documented in this [...] daniel occurred with: Not Discussed Care Teams Rivet Tapping Machine Operator Relationship Specialty Start Date End Date Marcela Pinto MD [address] [place] [address] [place] [address] PCP - General Internal Medicine 08/04/14 documented as of this encounter
--- OUTSIDE RECORDS SUMMARY | 2023-06-18 02:31 | External Medical Summary | Summary of Care ---
Author Name Unknown Organization [place] [address] Care Team Providers Care Geologist Name Role Phone Marcela Pinto MD Primary Care Provider + Reason for Visit * Reason Onset Date Comments COVID-19 Screening 10/30/2022 Encounter Details Date Type Department Care Team Description 10/30/2022 Telephone COVID19 Screening [facility] DEPT CLOSED 07/24/21 [address] [place] [phone], Automated Provider COVID-19 Screening Allergies Active Allergy Reactions Severity Noted Date Comments Valsartan 07/10/2010 Enalapril 05/21/2006 Escitalopram Oxalate Nausea/vomiting 10/11/2009 Nauseated Iodinated Contrast Media Nausea/vomiting 2009 IV Contrast Iodine Hives 12/18/2009 IV Contrast Metoprolol Tartrate 11/18/2006 Made pulse low [place] Oil-Black Currant-Vit E 07/10/2010 Verapamil 03/21/2004 Bupropion Hcl 10/30/2009 Makes pt sick in the stomach documented as of this encounter (statuses as of 10/31/2022) Medications Medication Sig Dispensed Refills Start Date [...] Respimat 1.25 MCG/ACT Inhalation Aerosol Solution (Tiotropium [place] Monohydrate) Inhale 2 Puffs by mouth in [...] as of this encounter (statuses as of 10/31/2022) Active Problems Problem Noted Date Protein-calorie malnutrition [...] on 07/26/2019 Overview: Per COPD GOLD Classification HECOTR (generalized anxiety disorder) 07/09 Irritable bowel syndrome [...] as of this encounter (statuses as of 10/31/2022) Resolved Problems Problem Noted Date Resolved Date [...] Hypoxemia 10/08/2011 10/30/2015 Genetic Sleep Disorder Research Other*[id number] 07/25/2011 05/15/2016 COPD, moderate 07/19/2011 07/28/2019 Overview: [...] as of this encounter (statuses as of 10/31/2022) Immunizations Name Administration Dates Next Due COVID-19 mRNA, LNP-s, No Pre serve, 2-Dose Series (ScratchJr) 08/21/2021,12/22/2020,2020 COVID-19, LNP-s, No Preserve , Tyler-sucrose, Ages 12+ (Pfizer) 04/16/2022 Hepatitis B, 20+ yrs 10/01/2017,04/21/2017,03/20 Pneumococcal Conjugate Vacc, 13 Valent (Prevnar) 03/28/2015 Pneumococcal Conjugate Vacci ne, 20-valent ([id number]) 04/01/2022 Pneumococcal Polysaccharide PPV23 (Pneumovax) 05/21/2006 Seasonal [...] encounter Miscellaneous Notes * Telephone Encounter - Covid Results [facility] - 10/31/2022 1:19 AM EST Outreach Attempts IVR Call Oct 30 2022 5:05PM Answered - Success Results COVID: Negative IVR Message: Ann Marie Wood. Your COVID-19 from 10/29/2022 00:00:00 results are negative. This means you are NOT infected with coronavirus 19. If your cold/flu symptoms last longer than 7 days or get worse, contact your primary care physician. If you don't have a primary care physician, go to the nearest [facility] or urgent care clinic. To establish care with a [facility] provider, please call [phone]. Practice social distancing and good hand hygiene to keep yourself and others safe. Your results are also available for your reference in your [employer] account under 'Test & Lab Results.' If you are not enrolled in [employer], you can create an account by going to [email or web address]. You will also receive a letter in the mail with your results. If you are a [facility] staff member or employee, when you receive your result, please call [employer] between 7 a.m. and 4 p.m. at [phone]. Notify them of your test results and for instructions on returning to work after your quarantine period. Press 1 if you would like to speak with a nurse, press 2 to hear this message again. Electronically signed by Izabella Mcpherson [facility] at 10/31/2022 1:20 AM EST documented in this encounter Plan of Treatment Upcoming Encounters Date Type Specialty Care Team Description 11/01/2022 Hospital Encounter Surgery Dionte Snyder MD [address] [place] [address] 11/01/2022 Surgery Surgery Dionte Snyder MD [address] [place] [address] LAPAROSCOPIC PARTIAL COLECTOMY WITH COLOPROCTOSTOMY 11/04/2022 Office Visit Hematology Oncology Ida Cueva CRNP [address] [place] [address] 11/08/2022 Scheduled Telephone General Surgery Colorectal, Nurse Follow Up Phone Call Schedule [address] [place] [address] 11/26/2022 Office Visit General Surgery Teresita Padron PA-C [address] [facility] [place] [address] 12/23/2022 Office Visit Orthopedics Eliezer Gifford, DO [address] [facility] [place] [address] 01/03/2023 Office Visit Cardiology Hammad Lopez, DO [address] [place] [address] 01/07/2023 Office Visit Internal Medicine Marcela Pinto MD [address] [facility], [place] [address] Scheduled Procedures Name Priority Associated Diagnoses Date/Ti [...] Additional history exists CKD PHOS USE SMARTSET 33356 08/05/202307/14, 02/19/2022, 03/09/2021, Additional history exists CKD HGB USE SMARTSET 93445 08/19/202308/19, 08/12/2022, 08/06/2022, Additional history exists DIABETES-FOOT [...] daniel occurred with: Not Discussed Care Teams Geologist Relationship Specialty Start Date End Date Marcela Pinto MD [address] [facility] [place] [place] [address] PCP - General Internal Medicine 08/04/14 documented as of this encounter
--- OUTSIDE RECORDS SUMMARY | 2023-06-18 02:32 | External Medical Summary | Summary of Care ---
Author Name Unknown Organization [place] [address] Care Team Providers Care Watch Crystal Edge Grinder Name Role Phone Marcela Pinto MD Primary Care Provider + Reason for Visit * Reason Comments Joint Pain Right shoulder Encounter Details Date Type Department Care Team Description 09/24/2022 Office Visit Orthopaedics [facility] [address] [facility] [place] [address] Eliezer Gifford, [address] [facility] [place] [address] Primary osteoarthritis of right shoulder*; Nontraumatic complete tear of right rotator cuff Allergies Active Allergy Reactions Severity Noted Date Comments Valsartan 07/10/2010 Enalapril 05/21/2006 Escitalopram Oxalate Nausea/vomiting 10/11/2009 Nauseated Iodinated Diagnostic Agents Nausea/vomiting 05/2010 IV Contrast Iodine Hives 12/18/2009 IV Contrast Metoprolol Tartrate 11/18/2006 Made pulse low [place] Oil-Black Currant-Vit E 07/10/2010 Verapamil 03/21/2004 Bupropion Hcl 10/30/2009 Makes pt sick in the stomach documented as of this encounter (statuses as of 09/24/2022) Medications Medication Sig Dispensed Refills Start Date [...] 81 MG Oral Tablet Delayed Release Take 81 mg by mouth daily. 0 02/05/2021 Active Spiriva Respimat 1.25 MCG/ACT Inhalation Aerosol Solution (Tiotropium [place] Monohydrate) Inhale by mouth 2 Puffs daily . 0 Active Dicyclomine HCl 20 MG Oral Tablet (Bentyl)Indications: Chronic constipation TAKE 1 TABLET BY MOUTH EVERY DAY 90 Tablet 2 03/25/2022 Active Ferrous Sulfate 325 (65 Fe) MG Oral Tablet (Feosol) Take by mouth 1 Tablet in the morning. 0 04/22/2022 Active Zafirlukast [...] 3350 17 GM Oral Packet (Miralax) Take by mouth 17 g 2 times a day as needed for Constipation. 0 Active Glimepiride 2 MG Oral Tablet (Amaryl) TAKE 1 TABLET BY MOUTH EVERY DAY WITH BREAKFAST 90 Tablet 1 08/09/2022 Active Magnesium Chloride 64 MG Oral Tablet Delayed Release (Mag-64) 64 mg . 0 07/25/2022 Active Klor-Con M20 20 MEQ Oral Tablet Extended Release (Potassium Chloride Annalisa ER)Indications:HTN, goal below 140/90 TAKE 1 TABLET BY MOUTH EVERY DAY 90 Tablet 3 08/19/2022 Active predniSONE 50 MG Oral Tablet (Deltasone)Indicatio ns:Colonic diverticular abscess One tablet 13 hours, 7 hours and 1 hour prior to scheduled dye 3 Tablet 0 08/21/2022 Active Ipratropium-Albutero l 20-100 MCG/ACT Inhalation Aerosol Solution [...] the morning. 90 Tablet 1 09/13/2022 Active Ciprofloxacin HCl 500 MG Oral Tablet (Cipro)Indications:D iverticulitis of intestine with abscess, unspecified bleeding status, unspecified part of intestinal tract Take 1 Tablet (500 mg) by mouth in the morning and 1 Tablet (500 mg) before bedtime. Do all this for 10 days. 20 Tablet 0 09/16/2022 2 Active metroNIDAZOLE 500 MG Oral TabletIndications:Di verticulitis of intestine with abscess, unspecified bleeding status, unspecified part of intestinal tract Take 1 Tablet (500 mg) by mouth in the morning and 1 Tablet (500 mg) at noon and 1 Tablet (500 mg) before bedtime. Do all this for 10 days. 30 Tablet 0 09/16/2022 2 Active HYDROcodone-Acetamin ophen 5-325 MG Oral TabletIndications:Ge neralized osteoarthritis Take 1 Tablet by mouth every 6 hours as needed for Pain, Mild. 120 Tablet 0 09/19/2022 Active Promethazine HCl 25 MG Oral Tablet (Phenergan)Indicatio ns:Generalized osteoarthritis TAKE 1 TABLET BY MOUTH EVERY 6 HOURS NEEDED FOR NAUSEA 60 Tablet 2 09/23/2022 Active Metoprolol Succinate ER 25 MG Oral [...] bedtime. 120 Tablet 0 09/24/2022 3 Active Hospital, Clinic, or Other Facility Administered Medication Ordered Dose Route Frequency Start Date End Date Status lidocaine 1% 1 mL - triamcinolone acetonide 40 mg/mL 1 mL inj 2 mLIndications:Primary osteoarthritis of right shoulder,Nontraumatic complete tear of right rotator cuff 2 mL IJ ONCE 09/24/2022 09/24/2022 Ended documented as of this encounter (statuses as of 09/24/2022) Active Problems Problem Noted Date Protein-calorie malnutrition [...] as of this encounter (statuses as of 09/24/2022) Resolved Problems Problem Noted Date Resolved Date [...] Hypoxemia 10/08/2011 10/30/2015 Genetic Sleep Disorder Research Other*[id number] 07/25/2011 05/15/2016 COPD, moderate 07/19/2011 07/28/2019 Overview: [...] as of this encounter (statuses as of 09/24/2022) Immunizations Name Administration Dates Next Due COVID-19 mRNA, LNP-s, No Pre serve, 2-Dose Series (Rewind Me) 08/21/2021,12/22/2020,2020 COVID-19, LNP-s, No Preserve , Tyler-sucrose, Ages 12+ (Pfizer) 04/16/2022 Hepatitis B, 20+ yrs 10/01/2017,04/21/2017,03/20 Pneumococcal Conjugate Vacc, 13 Valent (Prevnar) 03/28/2015 Pneumococcal Conjugate Vacci ne, 20-valent ([id number]) 04/01/2022 Pneumococcal Polysaccharide PPV23 (Pneumovax) 05/21/2006 Seasonal [...] got money to buy more. Never true 08/08/2020 Within the past 12 months, t he food you bought just didn't last and you didn't have money to get more. Never true 08/08/2020 Sex Assigned at Date Recorded Female 04/06/2019 [...] Progress Notes * Eliezer Gifford, DO - 09/24/2022 1:00 PM EST Nina Harrington [id number] Nina Harrington is a 81 year old female who presents for f/u to [facility] Medicine for right shoulder injury/pain. Nina Harrington is here unaccompanied Date of Injury: no injury, pain since early 2021 getting worse, more pain at night Sport or Occupation: retired Handedness: right History: seen by me on 07/01/22 and had RIGHt G jt inj with 50% relief Previous Surgery / Subluxation / dislocation: no ROS EXAM: Constitional: No change in weight, No weakness, No fatigue and No fevers, sweats, or chills Past Medical History: Diagnosis Date ACEI/ARB contraindicated Asthma Carpal tunnel syndrome DM type 2, goal: symptom mgmt (HCC) Generalized osteoarthritis HTN, goal below 140/90 Mixed dyslipidemia Family History Problem Relation Age of Onset 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, 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 Tobacco Use Smoking status: Never Smokeless [...] Resource Strain: Not on file Food Insecurity: Not on file Transportation Needs: Not on file Physical Activity: Not on file Stress: Not on file Social Connections: Not on file Intimate Partner Violence: Not on file Housing Stability: Not on file Current Outpatient Medications Medication Sig Dispense Refill VITAMIN D 1000 UNITS PO TABS one tablet daily LUMIGAN 0.01 % OP SOLN INSTILL 1 DROP BY TOPICAL ROUTE EVERY BEDTIME 4 AZOPT 1 % OP SUSP INSTILL 1 DROP BY OPHTHALMIC ROUTE 2 TIMES EVERY DAY INTO BOTH EYES 4 Probiotic Product (PROBIOTIC DAILY) Capsule Take 1 Cap by mouth daily. oxygen GAS Use 4 L/min(Oxygen) as directed. Uses 2 LPM during the day and 4 LPM at night Multiple Vitamins-Minerals (ONE DAILY MULTIVITAMIN WOMEN) TABS one pill each day [facility] SENNA 8.6 MG Tablet TAKE 2 TABLETS BY MOUTH EVERY EVENING FOR 10 DAYS NEEDED FOR CONSTIPATION 0 docusate sodium (COLACE) 100 MG Capsule Take [...] 81 MG Oral Tablet Delayed Release Take 81 mg by mouth daily. Spiriva Respimat 1.25 MCG/ACT Inhalation Aerosol Solution (Tiotropium [place] Monohydrate) Inhale by mouth 2 Puffs daily . Dicyclomine HCl 20 MG Oral Tablet (Bentyl) TAKE 1 TABLET BY MOUTH EVERY DAY 90 Tablet 2 Ferrous Sulfate 325 (65 Fe) MG Oral Tablet (Feosol) Take by mouth 1 Tablet in the morning. Zafirlukast 20 MG Oral [...] 3350 17 GM Oral Packet (Miralax) Take by mouth 17 g 2 times a day as neededfor Constipation. Glimepiride 2 MG Oral Tablet (Amaryl) TAKE 1 TABLET BY MOUTH EVERY DAY WITH BREAKFAST 90 Tablet1 Magnesium Chloride 64 MG Oral Tablet Delayed Release (Mag-64) 64 mg . (Patient not taking: Reported on 08/15/2022 ) Klor-Con M20 20 MEQ Oral Tablet Extended [...] by mouth in the morning. 90 Tablet1 Ciprofloxacin HCl 500 MG Oral Tablet (Cipro) Take 1 Tablet (500 mg) by mouth in the morning and1 Tablet (500 mg) before bedtime. Do all this for 10 days. 20 Tablet 0 metroNIDAZOLE 500 MG Oral Tablet Take 1 Tablet (500 mg) by mouth in the morning and 1 Tablet (500 mg) at noon and 1 Tablet (500 mg) before bedtime. Do all this for 10 days. 30 Tablet 0 HYDROcodone-Acetaminophen 5-325 MG Oral Tablet Take 1 Tablet by mouth every 6 hours as needed for Pain, Mild. 120 Tablet 0 Promethazine HCl 25 MG Oral Tablet (Phenergan) TAKE 1 TABLET BY MOUTH EVERY 6 HOURS NEEDED FOR NAUSEA 60 Tablet 2 Metoprolol Succinate ER 25 MG Oral Tablet Extended Release 24 Hour (toPROL XL) TAKE 1/2 TABLET BY MOUTH EVERY DAY 45 Tablet 3 No current facility-administered medications for this visit. [...] and Station: significantly antalgic, here in wheelchair Shoulder exam, bilateral Shoulder glenohumeral range of motion: ABD (100') - Right - 80 degrees Left - 100 degrees ER (90') - Right - 70 degrees Left - 90 degrees IR (60') - Right - 30 degrees Left - 40 degrees FF (110') - Right - 90+ degrees Left - 110+ degrees Palpation: positive tenderness to palpation diffuse Assessment and Plan: watch blood glucose, see procedure note f/u 3 months Primary osteoarthritis of right shoulder (Primary) - POINT OF CARE US MAJOR JOINT INJECTION, ORTHO - lidocaine 1% 1 mL - triamcinolone acetonide 40 mg/mL 1 mL inj 2 mL Nontraumatic complete tear of right rotator cuff - POINT OF CARE US MAJOR JOINT INJECTION, ORTHO - lidocaine 1% 1 mL - triamcinolone acetonide 40 mg/mL 1 mL inj 2 mL Eliezer Gifford, DO Primary Care Sports Medicine Orthopaedics [facility] [address] [facility] [place] [address] Procedure note (shoulder glenohumoral joint injection) on right: pt moved several times during procedure in wheelchair, I took anterior to post aproach Time out: Prior to injection, a time [...] Nursing Notes * Shanita Ramos LPN - 09/24/2022 12:04 PM EST Follow up Patient Follow up: Shoulder Side: Right Date of last visit: 07/01/22 Improvement since last office visit: 0 percent. Prior Treatment: injection Here for Test Results: no Goals for this appointment: injection Shanita Shaffer LPN documented in this encounter Plan of Treatment Upcoming Encounters Date Type Specialty Care Team Description 09/30/2022 [facility] [phone] 10/10/2022 [facility] Visit [facility] [address] 10/29/2022 Nurse Only Ancillary Doran, Pre Surgical Covid Testing Connie [address] [place] [address] 10/31/2022 Hospital Encounter Dionte Snyder MD [address] [place] [address] 11/01/2022 Hospital Encounter Surgery Dionte Snyder MD [address], [place] [id number] 11/01/2022 Surgery Surgery Dionte Snyder MD [address] [place] [address] LAPAROSCOPIC PARTIAL COLECTOMY WITH COLOPROCTOSTOMY 11/04/2022 Office Visit Hematology Oncology Ida Cueva CRNP [address] [facility] [place] [id number] 11/08/2022 Scheduled Telephone General Surgery Colorectal, Nurse Follow Up Phone Call Schedule [address] [place] [address] 11/26/2022 Office Visit General Surgery Teresita Padron PA-C [address] [place] [address] 12/23/2022 Office Visit Orthopedics Eliezer Gifford, DO [address] [facility] [address] 01/03/2023 Office Visit Cardiology Hammad Lopez, DO [address] [place] [address] Scheduled Procedures Name Priority Associated Diagnoses Date/Ti me LAPAROSCOPIC PARTIAL COLECTO MY WITH COLOPROCTOSTOMY Colovesical fistula 11/01/2022 9:22 AM EST CYSTOURETHROSCOPY WITH INSERTION URETERAL STENT DUAL SERVICE Colovesical fistula 11/01/2022 9:22 AM EST Health Maintenance Due Date Last Done Comments Zoster Vaccines (3 of 3) 05/27/2022 04/01/2022, 06/14 COVID-19 Vaccine (5 - Booster for Pfizer series) 06/11/2022 04/16/2022, 08/21/2021, 12/22/2020, Additional history exists Depression Screening, Annual for Pts 12 and Over 08/08/2022 08/08/2021 DIABETES-FOOT EXAM 11/19/2022 11/19/2021, 0 12/21/2020, 10/19/2019, Additional history exists DIABETES-HGBA1C EVERY 6 MONTHS 12/08/2022 06/07/2022, 02/19/2022, 08/23/2021, Additional history exists GFR - Renal Function 02/16/2023 08/19/2022, 08/12/2022, 08/06/2022, Additional history exists Alb / Creat Ratio 02/19/2023 02/19/2022, , 07/27/2018, Additional history exists DIABETES-EYE EXAM 03/08/2023 03/08/2022, , 08/07/2020, Additional history exists CKD PHOS USE SMARTSET 25825 08/05/202307/14, 02/19/2022, 03/09/2021, Additional history exists CKD HGB USE SMARTSET 41990 08/19/202308/19, 08/12/2022, 08/06/2022, Additional history exists O2 ASSESSMENT COMPLETED IN PAST YEAR FOR COPD 09/11/2023 09/11/2022 DXA Scan 08/08/2025 08/08/2020, 04/13, 06/19/2010, Additional [...] CARE US MAJOR JOINT INJECTION, ORTHO Routine 09/24/2022 1:22 PM EST Primary osteoarthritis of right shoulder Nontraumatic complete tear of right rotator cuff documented in this encounter Results * POINT OF CARE US MAJOR JOINT INJECTION, ORTHO (09/24/2022 1:22 PM EST) Anatomical Region Laterality Modality Musculoskeletal Radiographic Gracie ging 09/24/2022 1:22 PM EST Narrative 09/24/2022 1:16 PM EST [facility] - Ultrasound Program Exam Date: 09/24/2022 Exam Type: Ortho Security Compliance Engineer: Eliezer Gifford Attending: Eliezer Gifford Worksheet: Ortho Injection Exam Information: Impression: Procedure note (shoulder glenohumoral joint injection) on right: pt moved several times during procedure in wheelchair, I took anterior to post aproach ? Time out: Prior to injection, a [...] documentation above.: Signed by Eliezer Gifford on Saturday, September 24, 2022 at 1:16:25 PM Procedure Note Eliezer Gifford DO - 09/24/2022 [facility] - Ultrasound Program Exam Date: 09/24/2022 Exam Type: Ortho Security Compliance Engineer: Eliezer Gifford Attending: Eliezer Gifford Worksheet: Ortho Injection Exam Information: Impression: Procedure note (shoulder glenohumoral joint injection) on right: ptmoved several times during procedure in wheelchair, I took anterior topost aproach ? Time out: Prior to injection, a [...] the documentation above.: Signed byEliezer Gifford on Saturday, September 24, 2022 at 1:16:25 PM Eliezer Gifford DO RAD ULTRASOUND documented in this encounter Visit Diagnoses Diagnosis Primary osteoarthritis of right shoulder- Primary Primary localized osteoarthrosis, shoulder region Nontraumatic complete tear of right rotator cuff Colovesical fistula Intestinovesical fistula documented in this encounter Administered Medications Inactive Administered Medications - up to 3 most recent administrations Medication Order MAR Action Action Date Dose Rate Site lidocaine 1% 1 mL - triamcinolone acetonide 40 mg/mL 1 mL inj 2 mL 2 mL, Injection, ONCE, On Fri09/24/22 at 1345, For 1 dose, Lidocaine 1% 1mL Triamcinolone Acetonide 40 mg/mL 1 mL (Final concentration = 20 mg/mL) REFRIGERATE and SHAKE WELL Given 09/24/2022 1:42 PM EST 2 mL Shoulder Right documented in this [...] daniel occurred with: Not Discussed Care Teams Watch Crystal Edge Grinder Relationship Specialty Start Date End Date Marcela Pinto MD [address] [place] [address], [place] [address] PCP - General Internal Medicine 08/04/14 documented as of this encounter
--- OUTSIDE RECORDS SUMMARY | 2023-06-18 02:32 | External Medical Summary | Summary of Care ---
Author Name Unknown Organization [place] [address] Care Team Providers Care Film Processor Name Role Phone Marcela Pinto MD Primary Care Provider + Reason for Visit * Reason Comments Acute 3 month follow up. P atient denied any new concerns. Encounter Details Date Type Department Care Team Description 10/10/2022 Office Visit General Internal Medicine [facility] [place] [address] [facility] [place] [address] Marcela Pinto MD [address] [place] [address] Type 2 diabetes mellitus with hemoglobin A1c goal of less than 7.5% ([facility])*; DM type 2 nursing care encounter ([facility]); Chronic kidney disease, stage 3a ([facility]); Subclinical hyperthyroidism; Hyperlipidemia with target LDL less than 100; HTN, goal below 140/90; Sleep apnea, obstructive; Diverticulitis of colon Allergies Active Allergy Reactions Severity Noted Date Comments Valsartan 07/10/2010 Enalapril 05/21/2006 Escitalopram Oxalate Nausea/vomiting 10/11/2009 Nauseated Iodinated Contrast Media Nausea/vomiting 2009 IV Contrast Iodine Hives 12/18/2009 IV Contrast Metoprolol Tartrate 11/18/2006 Made pulse low [place] Oil-Black Currant-Vit E 07/10/2010 Verapamil 03/21/2004 Bupropion Hcl 10/30/2009 Makes pt sick in the stomach documented as of this encounter (statuses as of 10/10/2022) Medications Medication Sig Dispensed Refills Start Date [...] Respimat 1.25 MCG/ACT Inhalation Aerosol Solution (Tiotropium [place] Monohydrate) Inhale 2 Puffs by mouth in [...] :Asthma with severity to be determined,COPD, moderate ([facility]) TAKE 1 PUFF BY MOUTH 4 TIMES [...] the morning. 90 Tablet 1 09/13/2022 Active HYDROcodone-Acetamin ophen 5-325 MG Oral TabletIndications:Ge [...] bedtime. 120 Tablet 0 09/24/2022 3 Active documented as of this encounter (statuses as of 10/10/2022) Active Problems Problem Noted Date Protein-calorie malnutrition [...] as of this encounter (statuses as of 10/10/2022) Resolved Problems Problem Noted Date Resolved Date [...] Hypoxemia 10/08/2011 10/30/2015 Genetic Sleep Disorder Research Other*[id number] 07/25/2011 05/15/2016 COPD, moderate 07/19/2011 07/28/2019 Overview: [...] as of this encounter (statuses as of 10/10/2022) Immunizations Name Administration Dates Next Due COVID-19 mRNA, LNP-s, No Pre serve, 2-Dose Series (Flowboard) 08/21/2021,12/22/2020,2020 COVID-19, LNP-s, No Preserve , Tyler-sucrose, Ages 12+ (Pfizer) 04/16/2022 Hepatitis B, 20+ yrs 10/01/2017,04/21/2017,03/20 Pneumococcal Conjugate Vacc, 13 Valent (Prevnar) 03/28/2015 Pneumococcal Conjugate Vacci ne, 20-valent (Dydjopo15) 04/01/2022 Pneumococcal Polysaccharide PPV23 (Pneumovax) 05/21/2006 Seasonal [...] Sign Reading Time Taken Comments Blood Pressure 110/70 10/10/2022 2:49 PM EST Pulse 71 10/10/2022 2:49 PM EST Temperature 36.4 C (97.6 F) 10/10/2022 2:49 PM ES T Respiratory Rate - - Oxygen Saturation 98% 10/10/2022 2:49 PM EST Inhaled Oxygen Concentration - - Weight 96.6 kg (213 lb) 10/10/2022 2:49 PM EST Height 165.1 cm (5' 5") 10/10/2022 2:49 PM EST Body Mass Index 35.45 10/10/2022 2:49 PM EST documented in this encounter Functional [...] No 07/25/2022 documented as of this encounter Patient Instructions * Patient Instructions* Donovan Lutz, TRUCK DRIVER - 10/10/2022 2:54 PM EST Diabetes: Keeping Feet Healthy Inspect your feet every day for signs of a problem. Diabetes can damage nerves in your feet and cause neuropathy. This condition makes it hard for you to feel injuries or sore spots. Diabetes can also change blood flow, making it harder for small problems, like a blister, to heal properly. In fact, minor injuries can quickly become serious infections that send you to the hospital. Practice self-care to protect your feet and keep them healthy. Take Special Care Inspect your feet daily for problems such as redness, blisters, cracks, dry skin, or numbness. Use a mirror to see the bottoms of your feet. Or, ask for help. Manage your diabetes. Monitor and control your blood sugar. Take all your medications as prescribed. Avoid walking barefoot, even indoors. Wash your feet with warm water and mild soap. Dry well, especially between toes. Dont treat corns or calluses yourself. Talk to your doctor or global ceo (a doctor who specializes in foot care) if you need assistance trimming your toenails. Use moisturizing cream or lotion if you have dry skin, but dont use it between toes. Dont use heating pads on your feet. If you have neuropathy, you could get a burn and not feel it. Stop smoking. Smoking restricts blood flow and can make it harder for wounds to heal. Have Regular Checkups Foot problems can develop quickly. So be sure to follow your healthcare teams schedule for regular checkups. During office visits, take off your shoes and socks as soon as you get in the exam room. Ask your healthcare provider to examine your feet for problems. This will make it easier to find and treat small skin irritations before they get worse. Regular checkups can also help keep track of the blood flow and feeling in your feet. If you have neuropathy, you may need to have checkups more often. Wear Proper Footwear Wearing proper footwear is very important. If areas of your feet have been damaged by too much pressure, your healthcare provider may recommend changing your footwear. In some cases, avoiding high heels or tight work boots may be all thats needed. Or, your healthcare provider may recommend special shoes or custom inserts. These help protect your feet and keep existing irritations from getting worse. If you need special footwear, ask your healthcare provider if you qualify for [employer] diabetic shoe program. Make Sure Shoes and Socks Fit Any pair of shoes--new or old--should feel comfortable as soon as you put them on. There shouldnt be any rubbing when you walk. Wear the right shoe for any activity. For instance, a running shoe is designed to keep your feet injury-free while jogging. Buy shoes at the end of the day, when your feet are larger. Make sure they provide support without feeling too loose. Make sure your socks fit, t oo. Wear soft, seamless, well-padded socks for activity. Cotton or microfiber socks are best to help to absorb sweat. To protect your feet, avoid shoes that are open-toed or open-heeled. If you have questions about what kinds of shoes and socks are best, talk to your healthcare team. Get Regular Exercise Regular exercise improves blood flow in your feet. It also increases foot strength and flexibility.Gentle exercises, like walking or riding a stationary bicycle, are best. You can also do special foot exercises. Just be sure to talk with your healthcare provider before starting any exercise program. Also mention if any exercise causes pain, redness, or other signs of foot problems. Note: If you have any kind of break in the skin of your foot or ankle, keep the area clean. Then call your doctor--especially if the area doesnt appear to be healing. [id number] [employer], [address] [place] [address], [place] [address]. All rights reserved. This information is not intended as a substitute for professional medical care. Always follow your healthcare professional's instructions. documented in this encounter Progress Notes * Marcela Pinto MD - 10/10/2022 3:04 PM EST Images from the original note were not included. History of Present Illness Nina Harrington is a 81 year old female with hx of HTN, Type 2 DM, Hyperlipidemia, recurrent diverticulitis, that presents for Acute (3 month follow up. Patient denied any new concerns.) Pt has hx of diverticular abscess s/p drainage catheter insertion on 07/25/2022. She reports there has been minimal output for the last few weeks, catheter was removed recently by IR. Pt is scheduledfor partial colectomy with coloproctostomy next month. Pt is currently on cipro and flagyl which she will be continuing till the date of surgery. No fever, chills. Denies any chestpain/sob/palpitation/swealling in the legs. Denies any chestpain/sob/palpitation/swealling in the legs. denies any cough/sob/wheezing/chestpain. Current antibiotics are helping with GI s/s. No fever, chills. Feels fine emotionally. States will get shingrix and last covid booster in pharmacy at [facility]. Physical Exam Vitals: 10/10/22 1449 Temp: 36.4 C (97.6 F) Pulse: 71 SpO2: 98% BP: 110/70 BMI: 35.44 BP Readings from Last 3 Encounters: 10/10/22 110/70 09/11/22 122/81 08/15/22 110/68 Wt Readings from Last 3 Encounters: 10/10/22 96.6 kg (213 lb) 09/11/22 92.2 kg (203 lb 4.8 oz) 08/15/22 96.2 kg (212 lb 0.2 oz) BMI Readings from Last 3 Encounters: 10/10/22 35.45 kg/m 09/11/22 33.83 kg/m 08/15/22 35.28 kg/m Ht Readings from Last 3 Encounters: 10/10/22 1.651 m (5' 5") 09/11/22 1.651 m (5' 5") 08/15/22 1.651 m (5' 5") HEENT: PERRLA, EOMI, anicteric sclera, b/l tympanic membrane is pearly white, no erythema, no pharyngeal erythema, no lymphadenopathy, neck supple CVS: RRR, no murmurs, rubs or gallops, s1 s 2normal. RESP: clear to auscultation, no wheezing or crackles ABD: soft, NT/ND, drain site is well healing, no sign of infection. EXT: no edema, cyanosis, peripheral pulses palpable bilaterally No large joint swelling, no redness, range of motion normal. Skin normal. Gait normal. Mood stable No focal weakness I have reviewed the following results: CMP and CBC Assessment and Plan Type 2 diabetes mellitus with hemoglobin A1c goal of less than 7.5% ([facility]) (Primary) On Amaryl. Hemoglobin AIC Results: Lab Results Component Value Date/Time HEMOGLOBIN A1C - [facility] 6.8 (H) 06/07/2022 06:28 AM HEMOGLOBIN A1C - [facility] 6.8 (H) 02/19/2022 04:04 PM HEMOGLOBIN A1C - [facility] 6.8 (H) 08/23/2021 02:34 PM HEMOGLOBIN A1C - [facility] 6.6 (H) 08/26/2019 02:55 PM HEMOGLOBIN A1C - [facility] 6.8 (H) 07/27/2018 11:32 AM HEMOGLOBIN A1C - [facility] 6.2 01/14/2018 12:03 PM DM type 2 nursing care encounter ([facility]) - DIABETES FOOT EXAM Chronic kidney disease, stage 3a ([facility]) Avoid nsaids, drink more water. Subclinical hyperthyroidism On Methimazole. Hyperlipidemia with target LDL less than 100 On statin. HTN, goal below 140/90 Stable. Continue current meds. Sleep apnea, obstructive Pt uses only oxygen 2 lit during day and 4 l/min at night time. Diverticulitis of colon Currently on cipro and flagyl until the day of surgery on 11/01/21. Pain well controlled. Wrap-Up Time: I spent a total of 30-39 minutes (exact time 35 mins) on the date of service in preparation, delivery, and documentation of the care provided to Nina Harrington excluding any time spent in the performance of separately billed services. * Donovan Lutz CMA - 10/10/2022 2:52 PM EST DM Foot Exam completed today. Provider aware. Donovan Lutz CMA Socks and Shoes Removed for Annual Diabetic Foot Screening RIGHT FOOT: No Reddened, Cracking, Or Open Areas Noted. RIGHT Dorsalis Pedis Pulse: Palpable RIGHT Posterior Tibial Pulse: Palpable RIGHT Monofilament:Patient reports feeling monofilament pressure on plantar surface of foot LEFT FOOT: No Reddened, Cracking or Open Areas Noted. LEFT Dorsalis Pedis Pulse: Palpable LEFT Posterior Tibial Pulse: Palpable LEFT Monofilament:Patient reports feeling monofilament pressure on plantar surface of foot Do you need diabetic shoes: No documented in this encounter Nursing Notes * Donovan Lutz CMA - 10/10/2022 2:49 PM EST Chief Complaint Patient presents with Acute 3 month follow up. Patient denied any new concerns. documented in this encounter Plan of Treatment Upcoming Encounters Date Type Specialty Care Team Description 10/29/2022 Nurse Only Ancillary Doran, Pre Surgical Covid Testing Connie [address] [place] [address] 10/31/2022 Hospital Encounter Dionte Snyder MD [address] [place] [address] 11/01/2022 Hospital Encounter Surgery Dionte Snyder MD [address] [place] [address] 11/01/2022 Surgery Surgery Dionte Snyder MD [address] [place] [address] LAPAROSCOPIC PARTIAL COLECTOMY WITH COLOPROCTOSTOMY 11/04/2022 Office Visit Hematology Oncology Ida Cueva CRNP [address] [place], [place] [id number] 11/08/2022 Scheduled Telephone General Surgery Colorectal, Nurse Follow Up Phone Call Schedule [address] [place] [address] 11/26/2022 Office Visit General Surgery Teresita Padron PA-C [address] [place] [address] 12/23/2022 Office Visit Orthopedics Eliezer Gifford, DO [address] [facility], [place] [address] 01/03/2023 Office Visit Cardiology Hammad Lopez, DO [address] [place], [place] [address] 01/07/2023 Office Visit Internal Medicine Marcela Pinto MD [address] [place] [address] Scheduled Procedures Name Priority Associated Diagnoses Date/Ti [...] Annual for Pts 12 and Over 08/08/2022 10/10/2022 DIABETES-HGBA1C EVERY 6 MONTHS 12/08/2022 06/07/2022, 02/19/2022, 08/23/2021, Additional history exists GFR - Renal Function 02/16/2023 08/19/2022, 08/12/2022, 08/06/2022, Additional history exists Alb / Creat Ratio 02/19/2023 02/19/2022, , 07/27/2018, Additional history exists DIABETES-EYE EXAM 03/08/2023 03/08/2022, , 08/07/2020, Additional history exists CKD PHOS USE SMARTSET 67116 08/05/202307/14, 02/19/2022, 03/09/2021, Additional history exists CKD HGB USE SMARTSET 46099 08/19/202308/19, 08/12/2022, 08/06/2022, Additional history exists O2 ASSESSMENT COMPLETED IN PAST YEAR FOR COPD 09/11/2023 10/10/2022 DIABETES-FOOT EXAM 10/10/2023 10/10/2022, 0 11/19/2021, 12/21/2020, Additional history exists DXA Scan 08/08/2025 08/08/2020, [...] A1c goal of less than 7.5% ([facility])- Primary DM type 2 nursing care encounter ([facility]) Type II or unspecified type diabetes mellitus without mention of complication, not stated as uncontrolled Chronic kidney disease, stage 3a ([facility]) Subclinical hyperthyroidism Thyrotoxicosis without mention of goiter or other cause, without mention of thyrotoxic crisis or storm Hyperlipidemia with target LDL less than 100 Other and unspecified hyperlipidemia HTN, goal below 140/90 Unspecified essential hypertension Sleep apnea, obstructive Obstructive sleep apnea (adult) (pediatric) Diverticulitis of colon Diverticulitis of colon (without mention of hemorrhage) Colovesical fistula Intestinovesical fistula documented in this [...] daniel occurred with: Not Discussed Care Teams Film Processor Relationship Specialty Start Date End Date Marcela Pinto MD [address] [place] [address] PCP - General Internal Medicine 08/04/14 documented as of this encounter
--- OUTSIDE RECORDS SUMMARY | 2023-06-18 02:32 | External Medical Summary | Summary of Care ---
Author Name Unknown Organization [place] [address] Care Team Providers Care Die Presser Name Role Phone Marcela Pinto MD Primary Care Provider + Reason for Visit * Reason Onset Date Comments Advice 09/10/2022 Encounter Details Date Type Department Care Team Description 09/10/2022 Telephone General Internal Medicine [facility] [address] [place] [address] Marcela Pinto MD [address] [place] [address] Advice Allergies Active Allergy Reactions Severity Noted Date Comments Valsartan 07/10/2010 Enalapril 05/21/2006 Escitalopram Oxalate Nausea/vomiting 10/11/2009 Nauseated Iodinated Diagnostic Agents Nausea/vomiting 05/2010 IV Contrast Iodine Hives 12/18/2009 IV Contrast Metoprolol Tartrate 11/18/2006 Made pulse low [place] Oil-Black Currant-Vit E 07/10/2010 Verapamil 03/21/2004 Bupropion Hcl 10/30/2009 Makes pt sick in the stomach documented as of this encounter (statuses as of 09/25/2022) Medications Medication Sig Dispensed Refills Start Date End Date Status VITAMIN D 1000 UNITS PO TABS one tablet daily 0 07/27/20 12 Active LUMIGAN 0.01 % OP SOLN INSTILL 1 DROP BY TOPICAL ROUTE EVERY BEDTIME 4 10/29/19 15 Active AZOPT 1 % OP SUSP INSTILL 1 DROP BY OPHTHALMIC ROUTE 2 TIMES EVERY DAY INTO BOTH EYES 4 10/29/19 15 Active Probiotic Product (PROBIOTIC DAILY) Capsule Take 1 Cap by mouth daily. 0 02/07/20 15 Active oxygen GAS Use 4 L/min(Oxygen) as directed. Uses 2 LPM during the day and 4 LPM at night 0 Active Multiple Vitamins-Minerals (ONE DAILY MULTIVITAMIN WOMEN) TABS one pill each day 0 04/21/20 17 Active [facility] SENNA 8.6 MG Tablet TAKE 2 TABLETS BY MOUTH EVERY EVENING FOR 10 DAYS NEEDED FOR CONSTIPATION 0 11/26/19 18 Active docusate sodium (COLACE) 100 MG Capsule [...] Take 81 mg by mouth daily. 0 02/06/20 21 Active Spiriva Respimat 1.25 MCG/ACT Inhalation Aerosol Solution (Tiotropium [place] Monohydrate) Inhale by mouth 2 Puffs daily . 0 Active Dicyclomine HCl 20 MG Oral Tablet (Bentyl)Indication s:Chronic constipation TAKE 1 TABLET BY MOUTH EVERY DAY 90 Tablet 2 03/25/20 22 Active Ferrous Sulfate 325 (65 Fe) MG Oral Tablet (Feosol) Take by mouth 1 Tablet in the morning. 0 04/22/20 22 Active [...] TWICE A DAY 180 Capsule 3 06/14/20 Active Ondansetron 8 MG Oral Tablet Disintegrating (Zofran) DISSOLVE 1 TABLET ON TONGUE EVERY 8 HOURS NEEDED FOR NAUSEA 60 Tablet 5 06/14/20 Active Polyethylene Glycol 3350 17 GM Oral Packet (Miralax) Take by mouth 17 g 2 times a day as needed for Constipation. 0 Active Glimepiride 2 MG Oral Tablet (Amaryl) TAKE 1 TABLET BY MOUTH EVERY DAY WITH BREAKFAST 90 Tablet 1 08/09/20 Active Magnesium Chloride 64 MG Oral Tablet Delayed Release (Mag-64) 64 mg . 0 07/25/20 Active Klor-Con M20 20 MEQ Oral Tablet Extended Release (Potassium Chloride Annalisa ER)Indications:HTN , goal below 140/90 TAKE 1 TABLET BY MOUTH EVERY DAY 90 Tablet 3 08/19/20 Active predniSONE 50 MG Oral Tablet (Deltasone)Indicat ions:Colonic diverticular abscess One tablet 13 hours, 7 hours and 1 hour prior to scheduled dye 3 Tablet 0 08/21/20 Active Ipratropium-[place] rol 20-100 MCG/ACT Inhalation Aerosol Solution (Combivent Respimat)Indicatio ns:Asthma with severity to be determined,COPD, moderate (HCC) TAKE 1 PUFF BY MOUTH 4 TIMES A DAY 12 g 1 09/10/20 Active Spironolactone 25 MG Oral Tablet (Aldactone) Take by mouth 0.5 Tablets once a day on Friday, Friday, and Friday only . 45 Tablet 3 12/29/19 22 022 Discontinued(Re fill) Atorvastatin Calcium 40 MG Oral Tablet (Lipitor) Take by mouth 1 Tablet in the morning. 100 Tablet 3 12/28/19 22 Discontinued Promethazine HCl 25 MG Oral Tablet (Phenergan)Indicat ions:Generalized osteoarthritis TAKE 1 TABLET BY MOUTH EVERY 6 HOURS NEEDED FOR NAUSEA 60 Tablet 2 05/03/20 22 Discontinued methIMAzole 5 MG Oral Tablet (Tapazole) Take by mouth 5 mg in the morning. 0 Discontinued(Re fill) HYDROcodone-Acetam inophen 5-325 MG Oral TabletIndications: Generalized osteoarthritis Take by mouth 1 Tablet every 6 hours as needed for Pain, Mild. 120 Tablet 0 08/08/20 22 022 Discontinued(Re fill) Metoprolol Succinate ER 25 MG Oral Tablet Extended Release 24 Hour (toPROL XL)Indications:Chr onic 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 135 Tablet 3 08/09/20 22 022 Discontinued documented as of this encounter (statuses as of 09/25/2022) Active Problems Problem Noted Date Protein-calorie malnutrition [...] as of this encounter (statuses as of 09/25/2022) Resolved Problems Problem Noted Date Resolved Date [...] Hypoxemia 10/08/2011 10/30/2015 Genetic Sleep Disorder Research Other*[id number] 07/25/2011 05/15/2016 COPD, moderate 07/19/2011 07/28/2019 Overview: [...] as of this encounter (statuses as of 09/25/2022) Immunizations Name Administration Dates Next Due COVID-19 mRNA, LNP-s, No Pre serve, 2-Dose Series (Driblet) 08/21/2021,12/22/2020,2020 COVID-19, LNP-s, No Preserve , Tyler-sucrose, Ages 12+ (Pfizer) 04/16/2022 Hepatitis B, 20+ yrs 10/01/2017,04/21/2017,03/20 Pneumococcal Conjugate Vacc, 13 Valent (Prevnar) 03/28/2015 Pneumococcal Conjugate Vacci ne, 20-valent ([id number]) 04/01/2022 Pneumococcal Polysaccharide PPV23 (Pneumovax) 05/21/2006 Seasonal [...] Telephone Encounter - Bobbi Fitch LPN - 09/25/2022 1:13 PM EST See other TE. * Telephone Encounter - Marcela Pinto MD - 09/13/2022 4:45 PM EST Noted. I got message back from ID Dr. Quinones, through [facility] and they recommended not to remove PICC line until surgery id [email or web address]. If PICC line is removed already, no worries and as per recommendations by ?, general surgery, can always put back the line. If pt is doing fine, no need for any intervention but has any fever, abd pain, or signs of diverticulitis or infection can start Cipro and flagyl orally. Script sent and pick it up if need to until the day of surgery. Dr. Snyder: As per ID, they are recommending intraoperative cultures including bacterial( aerobic, anerobic)fungal, mycobacterial. Can consult ID inpatient at the time of surgery as needed. Thanks. Nursing: please inform the patient. * Telephone Encounter - Susana Quiroz LPN - 09/13/2022 1:23 PM EST Stephani, patient daughter stated they did remove her PICC line on 09/12/2022. Daughter states that hersurgery for fistula is scheduled for 11/01/2022. Patient stated that surgeon who removed the PICC line saw the CT scan and was not concerned, he stated that if needed be, they could give her oral antibiotics. Daughter states patient is doing better than what she had been. Susana Quiroz LPN * Telephone Encounter - Marcela Pinto MD - 09/13/2022 9:37 AM EST Scan still shows possibility of abcess, diverticulitis, fistula. Please call the pt and see how sheis doing. Hope they have not removed the PICC line. Need to confirm with ID regarding can remove the PICC line or not. Dr. Sen: You reviewed her chart and had suggested to wait till CT and then decide on removal ofPICC line or not. Nina is also scheduled for upcoming surgery regarding her fistula. I would appreciate your input. Thanks. * Telephone Encounter - Allie Horton, verification clerk - 09/11/2022 10:51 AM EST Raissa calling from [email or web address] regarding PICC line in pt. States pt was to have PICC line until CT scan, requesting if PICC line can be removed at this time or is therapy to continue. Please review, requesting a return call high priority with update. Raissa can be reached at [phone] Thank you, Allie Horton Collection Development Librarian [facility] 09/11/2022,10:52 AM * Telephone Encounter - JORDAN Mendenhall - 09/10/2022 10:52 AM EST Tamara with [facility] is needing to know if they need to still keep the line in patient. Please call Tamara back at [phone] documented in this encounter Plan of Treatment Upcoming Encounters Date Type Specialty Care Team Description 09/30/2022 Office Visit Interventional Radiology Jerry Hernandez DO [address] [place] [address] 10/10/2022 Office Visit Internal Medicine Marcela Pinto MD [address] [place], [place] [id number] 10/29/2022 Nurse Only Ancillary Doran, Pre Surgical Covid Testing Connie [address] [place] [address] 10/31/2022 Hospital Encounter Dionte Snyder MD [address] [place] [address] 11/01/2022 Hospital Encounter Surgery Dionte Snyder MD [address] [place] [address] 11/01/2022 Surgery Surgery Dionte Snyder MD [address] [place] [address] LAPAROSCOPIC PARTIAL COLECTOMY WITH COLOPROCTOSTOMY 11/04/2022 Office Visit Hematology Oncology Ida Cueva CRNP [address] [place] [address] 11/08/2022 Scheduled Telephone General Surgery Colorectal, Nurse Follow Up Phone Call Schedule [address] [place] [address] 11/26/2022 Office Visit General Surgery Teresita Padron PA-C [address] [place] [address] 12/23/2022 Office Visit Orthopedics Eliezer Gifford, DO [address] [place] [address] 01/03/2023 Office Visit Cardiology Hammad Lopez, DO [address] [place] [address] Scheduled Procedures Name Priority Associated Diagnoses Date/Ti [...] Additional history exists CKD PHOS USE SMARTSET 61173 08/05/202307/14, 02/19/2022, 03/09/2021, Additional history exists CKD HGB USE SMARTSET 67240 08/19/202308/19, 08/12/2022, 08/06/2022, Additional history exists O2 [...] daniel occurred with: Not Discussed Care Teams Die Presser Relationship Specialty Start Date End Date Marcela Pinto MD [address] [place] [address] PCP - General Internal Medicine 08/04/14 documented as of this encounter
--- OUTSIDE RECORDS SUMMARY | 2023-06-18 02:32 | External Medical Summary | Summary of Care ---
Author Name Unknown Organization [place] [address] Care Team Providers Care Block Out Machine Operator Name Role Phone Marcela Pinto MD Primary Care Provider + Reason for Visit * Reason Comments eRx-Medication Refill Encounter Details Date Type Department Care Team Description 09/26/2022 Refill General Internal Medicine [facility] [address] [facility] [place] [address] Marcela Pinto MD [address] [place] [address] Hyperthyroidism Allergies Active Allergy Reactions Severity Noted Date Comments Valsartan 07/10/2010 Enalapril 05/21/2006 Escitalopram Oxalate Nausea/vomiting 10/11/2009 Nauseated Iodinated Diagnostic Agents Nausea/vomiting 05/2010 IV Contrast Iodine Hives 12/18/2009 IV Contrast Metoprolol Tartrate 11/18/2006 Made pulse low [place] Oil-Black Currant-Vit E 07/10/2010 Verapamil 03/21/2004 Bupropion Hcl 10/30/2009 Makes pt sick in the stomach documented as of this encounter (statuses as of 09/27/2022) Medications Medication Sig Dispensed Refills Start Date [...] Respimat 1.25 MCG/ACT Inhalation Aerosol Solution (Tiotropium [place] Monohydrate) Inhale by mouth 2 Puffs daily [...] as of this encounter (statuses as of 09/27/2022) Active Problems Problem Noted Date Protein-calorie malnutrition [...] as of this encounter (statuses as of 09/27/2022) Resolved Problems Problem Noted Date Resolved Date [...] Hypoxemia 10/08/2011 10/30/2015 Genetic Sleep Disorder Research Other*[id number] 07/25/2011 05/15/2016 COPD, moderate 07/19/2011 07/28/2019 Overview: [...] as of this encounter (statuses as of 09/27/2022) Immunizations Name Administration Dates Next Due COVID-19 mRNA, LNP-s, No Pre serve, 2-Dose Series (Auxmoney) 08/21/2021,12/22/2020,2020 COVID-19, LNP-s, No Preserve , Tyler-sucrose, Ages 12+ (Pfizer) 04/16/2022 Hepatitis B, 20+ yrs 10/01/2017,04/21/2017,03/20 Pneumococcal Conjugate Vacc, 13 Valent (Prevnar) 03/28/2015 Pneumococcal Conjugate Vacci ne, 20-valent ([id number]) 04/01/2022 Pneumococcal Polysaccharide PPV23 (Pneumovax) 05/21/2006 Seasonal [...] encounter Miscellaneous Notes * Telephone Encounter - Margret Bergman [facility] - 09/27/2022 9:15 AM ESTRefused Prescriptions: Disp Refills methIMAzole 10 MG Oral Tablet (Tapazole) 90 Tab*1 Sig: TAKE 1 TABLET BY MOUTH EVERY DAYRefused By: MARGRET BERGMAN LReason for Refusal: Refill Not AppropriateReason for Refusal Comment: dosage change to 5mg - order sent 09/13/22 metroNIDAZOLE 500 MG Oral Tablet (Flagyl) 120 Ta*0 Sig: TAKE 1 TABLET BY MOUTH IN THE MORNING AND 1 TABLET AT NOON AND 1 TABLET BEFORE BEDTIME.Refused By: MARGRET BERGMAN for Refusal: Duplicate RequestReason for Refusal Comment: sent 09/24/22 documented in this encounter Plan of Treatment Upcoming Encounters Date Type Specialty Care Team Description 09/30/2022 Office Visit Interventional Radiology Jerry Hernandez DO [address] [place] [address] 10/10/2022 Office Visit Internal Medicine Marcela Pinto MD [address] [facility] [place], [place] [phone] 10/29/2022 Nurse Only Ancillary Doran, Pre Surgical Covid Testing Connie [address] [place] [address] 10/31/2022 Hospital Encounter Dionte Snyder MD [address] [place] [address] 11/01/2022 Hospital Encounter Surgery Dionte Snyder MD [address] [place] [address] 11/01/2022 Surgery Surgery Dionte Snyder MD [address] [place] [address] LAPAROSCOPIC PARTIAL COLECTOMY WITH COLOPROCTOSTOMY 11/04/2022 Office Visit Hematology Oncology Ida Cueva CRNP [address] [place] [address] 11/08/2022 Scheduled Telephone General Surgery Colorectal, Nurse Follow Up Phone Call Schedule [address] [place] [address] 11/26/2022 Office Visit General Surgery Teresita Padron, DEREK [address] [place] [address] 12/23/2022 Office Visit Orthopedics Eliezer Gifford, DO [address] [place] [address] 01/03/2023 Office Visit Cardiology Hammad Lopez, DO [address] [place] [address] Scheduled Procedures Name Priority Associated Diagnoses Date/Ti [...] Additional history exists CKD PHOS USE SMARTSET 92202 08/05/202307/14, 02/19/2022, 03/09/2021, Additional history exists CKD HGB USE SMARTSET 75622 08/19/202308/19, 08/12/2022, 08/06/2022, Additional history exists O2 [...] without mention of thyrotoxic crisis or storm Colovesical fistula Intestinovesical fistula documented in this [...] daniel occurred with: Not Discussed Care Teams Block Out Machine Operator Relationship Specialty Start Date End Date Marcela Pinto MD [address] [facility] [place] [address] PCP - General Internal Medicine 08/04/14 documented as of this encounter
--- OUTSIDE RECORDS SUMMARY | 2023-06-18 02:32 | External Medical Summary | Summary of Care ---
Author Name Unknown Organization [place] [address] Care Team Providers Care Pattern Maker Programer Name Role Phone Marcela Pinto MD Primary Care Provider + Reason for Visit * Reason Comments Follow Up Drainage catheter re moval Encounter Details Date Type Department Care Team Description 09/30/2022 Office Visit Interventional Radiology, [facility] [address] [place] [address] Jerry Hernandez DO [address] [place] [address] Diverticulitis of large intestine with abscess without bleeding* Allergies Active Allergy Reactions Severity Noted Date Comments Valsartan 07/10/2010 Enalapril 05/21/2006 Escitalopram Oxalate Nausea/vomiting 10/11/2009 Nauseated Iodinated Diagnostic Agents Nausea/vomiting 05/2010 IV Contrast Iodine Hives 12/18/2009 IV Contrast Metoprolol Tartrate 11/18/2006 Made pulse low [place] Oil-Black Currant-Vit E 07/10/2010 Verapamil 03/21/2004 Bupropion Hcl 10/30/2009 Makes pt sick in the stomach documented as of this encounter (statuses as of 09/30/2022) Medications Medication Sig Dispensed Refills Start Date [...] 1.25 MCG/ACT Inhalation Aerosol Solution (Tiotropium [place] Monohydrate) Inhale by mouth 2 Puffs daily [...] as of this encounter (statuses as of 09/30/2022) Active Problems Problem Noted Date Protein-calorie malnutrition [...] as of this encounter (statuses as of 09/30/2022) Resolved Problems Problem Noted Date Resolved Date [...] Hypoxemia 10/08/2011 10/30/2015 Genetic Sleep Disorder Research Other*[id number] 07/25/2011 05/15/2016 COPD, moderate 07/19/2011 07/28/2019 Overview: [...] as of this encounter (statuses as of 09/30/2022) Immunizations Name Administration Dates Next Due COVID-19 mRNA, LNP-s, No Pre serve, 2-Dose Series ([employer]) 08/21/2021,12/22/2020,2020 COVID-19, LNP-s, No Preserve , Tyler-sucrose, Ages 12+ (Pfizer) 04/16/2022 Hepatitis B, 20+ yrs 10/01/2017,04/21/2017,03/20 Pneumococcal Conjugate Vacc, 13 Valent (Prevnar) 03/28/2015 Pneumococcal Conjugate Vacci ne, 20-valent ([id number]) 04/01/2022 Pneumococcal Polysaccharide PPV23 (Pneumovax) 05/21/2006 Seasonal [...] as of this encounter Progress Notes * Jerry Hernandez DO - 09/30/2022 1:32 PM EST FOLLOW UP - Interventional Radiology [address] [address] Subjective: Nina Harrington is a 81 year old female seen today for a follow up of pelvic drainage catheter. Chief Complaint: Follow up HISTORY OF PRESENT ILLNESS: Nina Harrington is a 81 year old female with history of diverticular abscess s/p drainage catheter insertion on 07/25/2022. She reports there has been minimal output for thelast few weeks. Scheduled for surgery in October. Is currently taking cipro and flagyl. Denies fever/chills or abdominal pain. Has known fistulous connections with the colon. No other acute issues otherwise. Past Medical History: Diagnosis Date ACEI/ARB contraindicated Asthma Carpal tunnel syndrome DM type 2, goal: symptom mgmt (HCC) Generalized osteoarthritis HTN, goal below 140/90 Mixed dyslipidemia Past Surgical History: Procedure Laterality Date APPENDECTOMY W/OTHER PROCEDURE 1959 when removed gall bladder COLONOSCOPY, DIAGNOSTIC (RECTUM) [facility], [facility]RECTUM) 06/05/2017 diverticulosis, repeat 3 yrs/[facility] COLONOSCOPY, DIAGNOSTIC (RECTUM) 02/28/2018 adenomatous polyps, diverticulosis, repeat 3 yrs / [facility] COLONOSCOPY, DIAGNOSTIC (RECTUM) 05/08/2020 inflammatory tissue on bx, diverticulosis / [facility] COLONOSCOPY, W/BIOPSY 03/20/2012 hyperplastic polyps rpt 3 years. EGD, FLEXIBLE, DIAGNOSTIC 04/29/2014 normal/inpt [facility] EGD, FLEXIBLE, DIAGNOSTIC 05/29/2016 fundic submucosal mass/inpt [facility] EGD, FLEXIBLE, DIAGNOSTIC 05/08/2020 normal / [facility] EGD, FLEXIBLE,W/ENDOSCOPIC US 11/08/2016 inflammatory changes, stomach lesion, repeat EUS 1.5 yrs/[facility] EGD, FLEXIBLE,W/ENDOSCOPIC US 05/01/2018 stromal cell (smooth muscle) neoplasm, CBD dilation, repeat 2 yrs (needs OV prior)/[facility] EGD, FLEXIBLE,W/ENDOSCOPIC US 09/01/2020 leiomyoma / [facility] INCISIONAL HERNIA REPAIR, LAP, REDUCIBLE 09/29/2012 Repair of incarcerated supraumbilical (incisional) hernia with [facility] mesh 09/29/12 IR ASPIRATION ABSCESS/COLLECTION 07/25/2022 LIGATE/CUT OVIDUCT(S) REMOVAL OF TONSILS, AGE 12+ age 11 REMOVE GALLBLADDER 1959 SIGMOIDOSCOPY, DIAGNOSTIC 04/29/2014 stool in rectum/inpt [facility] SMALL BOWEL ENDOSCOPY, REMOVE FOREIGN BODY mesh from prior hernia surgery, wrapped around small bowel. 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 Tobacco Use Smoking status: Never Smokeless tobacco: [...] on file Housing Stability: Not on file Family History Problem Relation Age of Onset Breast Cancer Mother Heart disease Father No Known Problems Sister COPD Brother COPD Brother COPD Brother Diabetes Aunt (Unspecified) Other (JORDAN) Son not diagnosed Lung Disorder Grandfather (Paternal) ?COPD vs asthma Asthma Daughter Review of patient's allergies indicates: Allergen Reactions Diovan [Valsartan] Enalapril Escitalopram Oxalate Nausea/vomiting Nauseated Iodinated Diagnostic Agents Nausea/vomiting IV Contrast Iodine Hives IV Contrast Metoprolol Tartrate Made pulse low [place] Oil-Black Currant-Vit E Verapamil Wellbutrin [Bupropion Hcl] Makes pt sick in the stomach REVIEW OF SYSTEMS: Per HPI. OBJECTIVE: There were no vitals taken for this visit. PHYSICAL EXAM: Constitutional: no acute distress Head: NC/AT Eyes: anicteric sclera Chest: normal respiratory effort Abdomen: soft, no tenderness, nondistended Neuro: alert, oriented to person, place, and time Psych: pleasant, appropriate mood and affect IMPRESSION/PLAN: Nina Harrington is a 81 year old with history of diverticulitis s/p pelvic drainage catheter. We discussed risks and benefits of drainage catheter removal. I explained the collection may reoccur although this is unlikely since she has not had any drainage for a few weeks and has no symptoms. She is also on antibiotics. The suture was removed, the catheter was cut, the catheter and retentionsuture were removed without complication. Non occlusive dressing was placed. Follow up with surgeryas planned. documented in this encounter Nursing Notes * Liam Muñoz RN - 09/30/2022 12:57 PM EST Patient brought to Fluoro room via wheelchair for abdominal drain removal. Pt denies pain, nausea, SOB, or dizziness, reports very little drainage from abdominal drain, no drainage currently present in collection bag. Dr. Jerry Hernandez present in room, described removal procedure to patient, removed suture and removed abdominal drain with tip intact. Wound covered with gauze and tape, wound care instructions given, pt escorted out of radiology via wheelchair. Pt tolerated procedure well. documented in this encounter Plan of Treatment Upcoming Encounters Date Type Specialty Care Team Description 10/10/2022 Office Visit Internal Medicine Marcela Pinto MD [address] [place] [address] 10/29/2022 Nurse Only Ancillary Doran, Pre Surgical Covid Testing Connie [address] [place] [address] 10/31/2022 Hospital Encounter Dionte Snyder MD [address] [place] [address] 11/01/2022 Hospital Encounter Surgery Dionte Snyder MD [address] [place] [address] 11/01/2022 Surgery Surgery Dionte Snyder MD [address] [place], [place] [id number] LAPAROSCOPIC PARTIAL COLECTOMY WITH COLOPROCTOSTOMY 11/04/2022 Office Visit Hematology Oncology Ida Cueva CRNP [address], [place] [phone] 11/08/2022 Scheduled Telephone General Surgery Colorectal, Nurse Follow Up Phone Call Schedule [address] [place] [address] 11/26/2022 Office Visit General Surgery Teresita Padron, DEREK [address] [place] [address] 12/23/2022 Office Visit Orthopedics Eliezer Gifford, DO [address] [facility] [place] [address] 01/03/2023 Office Visit Cardiology Hammad Lopez, DO [address] [place] [address] Scheduled Procedures Name Priority Associated Diagnoses Date/Ti [...] Additional history exists CKD PHOS USE SMARTSET 49474 08/05/202307/14, 02/19/2022, 03/09/2021, Additional history exists CKD HGB USE SMARTSET 30294 08/19/202308/19, 08/12/2022, 08/06/2022, Additional history exists O2 [...] this encounter Visit Diagnoses Diagnosis Diverticulitis of large intestine with abscess without bleeding- Primary Colovesical fistula Intestinovesical fistula documented in this [...] daniel occurred with: Not Discussed Care Teams Pattern Maker Programer Relationship Specialty Start Date End Date Marcela Pinto MD [address] [place] [address] PCP - General Internal Medicine 08/04/14 documented as of this encounter
--- OUTSIDE RECORDS SUMMARY | 2023-06-18 02:32 | External Medical Summary | Summary of Care ---
Author Name Unknown Organization [place] [address] Care Team Providers Care Nutrition Aide Name Role Phone Marcela Pinto MD Primary Care Provider + Reason for Visit * Reason Onset Date Comments Medication Problem 09/24/2022 HYDROCODONE N EEDS PRIOR AUTH Encounter Details Date Type Department Care Team Description 09/24/2022 Telephone General Internal Medicine [facility] [address] [place] [address] Marcela Pinto MD [address] [place] [address] Medication Problem (HYDROCODONE NEEDS PRIO... Allergies Active Allergy Reactions Severity Noted Date Comments Valsartan 07/10/2010 Enalapril 05/21/2006 Escitalopram Oxalate Nausea/vomiting 10/11/2009 Nauseated Iodinated Diagnostic Agents Nausea/vomiting 05/2010 IV Contrast Iodine Hives 12/18/2009 IV Contrast Metoprolol Tartrate 11/18/2006 Made pulse low [place] Oil-Black Currant-Vit E 07/10/2010 Verapamil 03/21/2004 Bupropion Hcl 10/30/2009 Makes pt sick in the stomach documented as of this encounter (statuses as of 10/08/2022) Medications Medication Sig Dispensed Refills Start Date End Date Status VITAMIN D 1000 UNITS PO TABS one tablet daily 0 07/27/2012 Activ e LUMIGAN 0.01 % OP SOLN INSTILL 1 [...] Respimat 1.25 MCG/ACT Inhalation Aerosol Solution (Tiotropium [place] Monohydrate) Inhale by mouth 2 Puffs daily [...] the morning. 90 Tablet 1 09/13/2022 Active HYDROcodone-Acetami nophen 5-325 MG Oral TabletIndications:G [...] Oral Tablet Extended Release 24 Hour (toPROL XL)Indications:Computer Recycling Worker akin heart failure with reduced ejection [...] bedtime. 120 Tablet 0 09/24/2022 3 Active Ciprofloxacin HCl 500 MG Oral Tablet (Cipro)Indications: Diverticulitis of intestine with abscess, unspecified bleeding status, unspecified part of intestinal tract Take 1 Tablet (500 mg) by mouth in the morning and 1 Tablet (500 mg) before bedtime. Do all this for 10 days. 20 Tablet 0 09/16/2022 2 metroNIDAZOLE 500 MG Oral TabletIndications:D iverticulitis of intestine with abscess, unspecified bleeding status, unspecified part of intestinal tract Take 1 Tablet (500 mg) by mouth in the morning and 1 Tablet (500 mg) at noon and 1 Tablet (500 mg) before bedtime. Do all this for 10 days. 30 Tablet 0 09/16/2022 2 documented as of this encounter (statuses as of 10/08/2022) Active Problems Problem Noted Date Protein-calorie malnutrition [...] as of this encounter (statuses as of 10/08/2022) Resolved Problems Problem Noted Date Resolved Date [...] Hypoxemia 10/08/2011 10/30/2015 Genetic Sleep Disorder Research Other*[id number] 07/25/2011 05/15/2016 COPD, moderate 07/19/2011 07/28/2019 Overview: [...] as of this encounter (statuses as of 10/08/2022) Immunizations Name Administration Dates Next Due COVID-19 mRNA, LNP-s, No Pre serve, 2-Dose Series (2d2c) 08/21/2021,12/22/2020,2020 COVID-19, LNP-s, No Preserve , Tyler-sucrose, Ages 12+ (Pfizer) 04/16/2022 Hepatitis B, 20+ yrs 10/01/2017,04/21/2017,03/20 Pneumococcal Conjugate Vacc, 13 Valent (Prevnar) 03/28/2015 Pneumococcal Conjugate Vacci ne, 20-valent ([id number]) 04/01/2022 Pneumococcal Polysaccharide PPV23 (Pneumovax) 05/21/2006 Seasonal [...] encounter Miscellaneous Notes * Telephone Encounter - Angelina Linder LPN - 10/08/2022 8:22 AM EST Cristiane calling from [facility] with one question --has patient been prescribed an opoid in the last 108 days. Informed she has, patient has been on this medication - not first script. Medication approved 08/25/22-10/08/2023 Case # [id number] * Telephone Encounter - Sigrid Montano RN - 09/24/2022 10:05 AM EST Phone call to [facility] in [facility] Medicare Part D put an initial fill limit of 7 days -- he has no idea why Medicare D help deck [phone] I called Medicare D This medication needs prior auth They faxed form to [phone] Please be on the lookout for it and complete in timely fashion -- MUST BE RETURNED IN 72 HOURS Thanks! * Telephone Encounter - Nicole Saeed LPN - 09/24/2022 9:06 AM EST Patient is calling. The hydrocodone was sent. Insurance will only pay for 7 days. The pharmacy toldher to let the doctors office know. She doesn't understand the problem. They have paid it all along. Please advise. documented in this encounter Plan of Treatment Upcoming Encounters Date Type Specialty Care Team Description 10/10/2022 Office Visit Internal Medicine Marcela Pinto MD [address] [place] [address], [place] [address] 10/29/2022 Nurse Only Ancillary Doran, Pre Surgical Covid Testing Connie [address] [place] [address] 10/31/2022 Hospital Encounter Dionte Snyder MD [address] [place] [address] 11/01/2022 Hospital Encounter Surgery Dionte Snyder MD [address] [place] [address] 11/01/2022 Surgery Surgery Dionte Snyder MD [address], [place] [id number] LAPAROSCOPIC PARTIAL COLECTOMY WITH COLOPROCTOSTOMY 11/04/2022 Office Visit Hematology Oncology Ida Cueva CRNP [address] [facility] [id number] 11/08/2022 Scheduled Telephone General Surgery Colorectal, Nurse Follow Up Phone Call Schedule [address] [place], [place] [phone] 11/26/2022 Office Visit General Surgery Teresita Padron PA-C [address] [place], [place] [phone] 12/23/2022 Office Visit Orthopedics Eliezer Gifford, DO [address] [place] [address] 01/03/2023 Office Visit Cardiology Hammad Lopez, DO [address] [place] [address] Scheduled Procedures Name Priority Associated Diagnoses Date/Ti [...] Additional history exists CKD PHOS USE SMARTSET 86167 08/05/202307/14, 02/19/2022, 03/09/2021, Additional history exists CKD HGB USE SMARTSET 21554 08/19/202308/19, 08/12/2022, 08/06/2022, Additional history exists O2 [...] daniel occurred with: Not Discussed Care Teams Nutrition Aide Relationship Specialty Start Date End Date Marcela Pinto MD [address] [facility] [place] [address] PCP - General Internal Medicine 08/04/14 documented as of this encounter
--- OUTSIDE RECORDS SUMMARY | 2023-06-18 02:32 | External Medical Summary | Summary of Care ---
Author Name Unknown Organization [place] [address] Care Team Providers Care Industrial Health Engineer Name Role Phone Marcela Pinto MD Primary Care Provider + Reason for Visit * Reason Comments case management Encounter Details Date Type Department Care Team Description 10/15/2022 Continuous Towel RollerDoor Fitter Practice [facility] [address] [place] [address] Joanna Smith, RN Medical home patient encounter* Allergies Active Allergy Reactions Severity Noted Date Comments Valsartan 07/10/2010 Enalapril 05/21/2006 Escitalopram Oxalate Nausea/vomiting 10/11/2009 Nauseated Iodinated Contrast Media Nausea/vomiting 2009 IV Contrast Iodine Hives 12/18/2009 IV Contrast Metoprolol Tartrate 11/18/2006 Made pulse low [place] Oil-Black Currant-Vit E 07/10/2010 Verapamil 03/21/2004 Bupropion [...] Respimat 1.25 MCG/ACT Inhalation Aerosol Solution (Tiotropium [place] Monohydrate) Inhale 2 Puffs by mouth in [...] Hypoxemia 10/08/2011 10/30/2015 Genetic Sleep Disorder Research Other*[id number] 07/25/2011 05/15/2016 COPD, moderate 07/19/2011 07/28/2019 Overview: [...] mRNA, LNP-s, No Pre serve, 2-Dose Series ([employer]) 08/21/2021,12/22/2020,2020 COVID-19, LNP-s, No Preserve , Tyler-sucrose, Ages 12+ (Pfizer) 04/16/2022 Hepatitis B, 20+ yrs 10/01/2017,04/21/2017,03/20 Pneumococcal Conjugate Vacc, 13 Valent (Prevnar) 03/28/2015 Pneumococcal Conjugate Vacci ne, 20-valent ([id number]) 04/01/2022 Pneumococcal Polysaccharide PPV23 (Pneumovax) 05/21/2006 Seasonal [...] Progress Notes * Joanna Smith RN - 10/15/2022 2:02 PM EST Continuous Towel Roller Progress Note: Date: 10/15/22 Current Patient Tier: 3 Assessment: Case Management Assessment Does this patient have COVID-19: NO Is this call for a hospital, prison or rehab facility discharge to home? No Review of Current goals: Connected with patient via telephone. Pt. Noted the following: Pt feels she is doing well, though she is having some GI pain which she feels is related to antibiotics. She is currently taking Cipro and Flagyl for s/p diverticular abscess. She recently had drain removed by IR and is scheduled for partial colectomy with coloproctostomy this month. She denies any fevers or chills at this time and denies any pain. She has zofran and phenergan for nausea but has not had to use these. Discussed the following patient-centered CM goals with the patient during this discussion: -Pain: Patient will have pain well managed -Status: On Track -GI: Patient will have GI issues addressed -Status: On Track -Prevention: Prevent admission/readmission -Status: On Track Plan for Future Contacts: Plan to follow up 1-2 months to check progress on the following goals/needs: F/U with surgery. Advancement/Closure Plan: CM Plan : GI: Notify us if you have any worsening n/v or GI pain. Continue to take probiotics and antibiotics as ordered. Report any fevers or chills. Pain: Take medication as ordered for pain control. Prevention: Take antibiotics as ordered. Keep patient at current Tier with reassessment per workflow. Patient provided CM contact information and encouraged to call with any changes in condition. SNP Member? No Does this patient qualify for an annual wellness visit? Yes, Sent to [facility] nurse to schedule PCP Notified of enrollment in CM/HM program: Yes Is Provider in agreement with POC? Yes Joanna Smith RN Outpatient Case Management documented in this encounter Plan of Treatment Upcoming Encounters Date Type Specialty Care Team Description 10/29/2022 Nurse Only Ancillary Doran, Pre Surgical Covid Testing Connie [address] [place] [address] 10/31/2022 Hospital Encounter Dionte Snyder MD [address] [facility] [place] [phone] 11/01/2022 [facility] En[facility] [address] [facility] [place] [phone] 11/01/2022 Surgery Surgery Dionte Snyder MD [address] [place] [address] LAPAROSCOPIC PARTIAL COLECTOMY WITH COLOPROCTOSTOMY 11/04/2022 Office Visit Hematology Oncology Ida Cueva CRNP [address] [place] [address] 11/08/2022 Scheduled Telephone General Surgery Colorectal, Nurse Follow Up Phone Call Schedule [address] [place] [address] 11/26/2022 Office Visit General Surgery Teresita Padron PA-C [address] [facility] [place] [address] 12/23/2022 Office Visit Orthopedics Eliezer Gifford, DO [address] [facility] [address] 01/03/2023 Office Visit Cardiology Hammad Lopez, DO [address] [place] [address] 01/07/2023 Office Visit Internal Medicine Marcela Pinto MD [address] [place] [address] Scheduled Procedures Name Priority Associated Diagnoses Date/Ti [...] Additional history exists CKD PHOS USE SMARTSET 01247 08/05/202307/14, 02/19/2022, 03/09/2021, Additional history exists CKD HGB USE SMARTSET 89399 08/19/202308/19, 08/12/2022, 08/06/2022, Additional history exists DIABETES-FOOT [...] home patient encounter- Primary Other specified examination Colovesical fistula Intestinovesical fistula documented in this [...] daniel occurred with: Not Discussed Care Teams Industrial Health Engineer Relationship Specialty Start Date End Date Marcela Pinot MD [address] [place] [address] PCP - General Internal Medicine 08/04/14 documented as of this encounter
--- OUTSIDE RECORDS SUMMARY | 2023-06-18 02:32 | External Medical Summary | Summary of Care ---
Author Name [place] [address] Care Team Providers Care Felt Hat Mellowing Machine Operator Name Role Phone Marcela Pinto MD Primary Care Provider + Reason for Visit * Reason Onset Date Comments Advice 08/12/2022 Encounter Details Date Type Department Care Team Description 08/12/2022 Telephone Interventional Radiology, [facility] [address] [place] [address] Requisition, External Radiology [address] [place], [place] [phone] Advice Allergies Active Allergy Reactions Severity Noted Date Comments Valsartan 07/10/2010 Enalapril 05/21/2006 Escitalopram Oxalate Nausea/vomiting 10/11/2009 Nauseated Iodinated Diagnostic Agents Nausea/vomiting 05/2010 IV Contrast Iodine Hives 12/18/2009 IV Contrast Metoprolol Tartrate 11/18/2006 Made pulse low [place] Oil-Black Currant-Vit E 07/10/2010 Verapamil 03/21/2004 Bupropion [...] Inhalation Aerosol Solution (Tiotropium [place] Monohydrate) Inhale by mouth 2 Puffs daily [...] BREAKFAST 90 Tablet 1 08/09/20 22 Active Klor-Con M20 20 MEQ Oral Tablet Extended Release (Potassium Chloride Annalisa ER)Indications:HTN , goal below 140/90 TAKE 1 TABLET BY MOUTH EVERY DAY 90 Tablet 3 09/28/20 21 Discontinued Spironolactone 25 MG Oral Tablet (Aldactone) Take by mouth 0.5 Tablets once a day on Friday, Friday, and Friday only . 45 Tablet 3 12/29/19 22 022 Discontinued(Re fill) Atorvastatin Calcium 40 MG Oral Tablet (Lipitor) Take by mouth 1 Tablet in the morning. 100 Tablet 3 12/28/19 22 022 Discontinued Ipratropium-[place] rol 20-100 MCG/ACT Inhalation Aerosol Solution (Combivent Respimat)Indicatio ns:Asthma with severity to be determined,COPD, moderate (HCC) TAKE 1 PUFF BY MOUTH 4 TIMES A DAY 12 g 1 02/01/20 22 022 Discontinued Promethazine HCl 25 MG Oral Tablet (Phenergan)Indicat ions:Generalized osteoarthritis TAKE 1 TABLET BY MOUTH EVERY 6 HOURS NEEDED FOR NAUSEA 60 Tablet 2 05/03/20 22 022 Discontinued Furosemide 40 MG Oral Tablet (Lasix) Take by mouth 1 Tablet in the morning AND 1 Tablet before bedtime. 60 Tablet 6 06/25/20 22 022 Discontinued(Re fill) methIMAzole 5 MG Oral Tablet (Tapazole) Take by mouth 5 mg in the morning. 0 022 Discontinued(Re fill) ertapenem INJ IV (AMBULATORY) Administer intravenously 1 g in the morning for 24 days. 24 g 0 07/29/20 22 HYDROcodone-Acetam inophen 5-325 MG Oral TabletIndications: Generalized [...] Hypoxemia 10/08/2011 10/30/2015 Genetic Sleep Disorder Research Other*[id number] 07/25/2011 05/15/2016 COPD, moderate 07/19/2011 07/28/2019 Overview: [...] mRNA, LNP-s, No Pre serve, 2-Dose Series ([employer]) 08/21/2021,12/22/2020,2020 COVID-19, LNP-s, No Preserve , Tyler-sucrose, Ages 12+ (Pfizer) 04/16/2022 Hepatitis B, 20+ yrs 10/01/2017,04/21/2017,03/20 Pneumococcal Conjugate Vacc, 13 Valent (Prevnar) 03/28/2015 Pneumococcal Conjugate Vacci ne, 20-valent ([id number]) 04/01/2022 Pneumococcal Polysaccharide PPV23 (Pneumovax) 05/21/2006 Seasonal [...] Miscellaneous Notes * Telephone Encounter - JORDAN Rios - 09/25/2022 9:59 AM EST Patient is scheduled for a drain removal on 09/30 at [facility]. Patient identified by: name/birthdate Person taught: Patients daughter PATIENT INSTRUCTIONS GIVEN: - No food or fluid restrictions prior procedure -Location and check-in instructions Verbalizes understanding of education: Yes The Patients daughter was given the opportunity to ask questions concerning the procedure. Signature: JORDAN Rios 09/25/2022 * Telephone Encounter - JORDAN Balderrama - 08/12/2022 3:52 PM EDT Daughter, Stephani, called to ask when patient should have her drain removed. Per Dr. Hernandez's instructions, when output is less than 10 mL daily for 2 consecutive days, drainage catheter may be removed. This collection will not require follow up imaging for the drain removal appointment. Daughter will call back to schedule when the output is as ordered above. documented in this encounter Plan of Treatment Upcoming Encounters Date Type Specialty Care Team Description 09/30/2022 Office Visit Interventional Radiology Jerry Hernandez DO [address] [place] [address] 10/10/2022 Office Visit Internal Medicine Marcela Pinto MD [address] [place] [address] 10/29/2022 Nurse Only Ancillary Doran, Pre Surgical Covid Testing Connie [address] [place] [address] 10/31/2022 Hospital Encounter Dionte Snyder MD [address] [place] [address] 11/01/2022 Hospital Encounter Surgery Dionte Snyder MD [address] [place] [address] 11/01/2022 Surgery Surgery Dionte Snyder MD [address] [place] [address] LAPAROSCOPIC PARTIAL COLECTOMY WITH COLOPROCTOSTOMY 11/04/2022 Office Visit Hematology Oncology Ida Cueva CRNP [address] [place] [address] 11/08/2022 Scheduled Telephone General Surgery Colorectal, Nurse Follow Up Phone Call Schedule [address] [place] [address] 11/26/2022 Office Visit General Surgery Teresita Padron PA-C [address] [place] [address] 12/23/2022 Office Visit Orthopedics Eliezer Gifford, DO [address] [place] [address] 01/03/2023 Office Visit Cardiology Hammad Lopez, DO [address] [place] [address] Scheduled Procedures Name Priority Associated Diagnoses Date/Ti [...] Additional history exists CKD PHOS USE SMARTSET 04337 08/05/202307/14, 02/19/2022, 03/09/2021, Additional history exists CKD HGB USE SMARTSET 41614 08/19/202308/19, 08/12/2022, 08/06/2022, Additional history exists O2 [...] daniel occurred with: Not Discussed Care Teams Felt Hat Mellowing Machine Operator Relationship Specialty Start Date End Date Marcela Pinto MD [address] [facility] [place] [address] PCP - General Internal Medicine 08/04/14 documented as of this encounter
--- OUTSIDE RECORDS SUMMARY | 2023-06-18 02:32 | External Medical Summary | Summary of Care ---
Author Name Unknown Organization [place] [address] Care Team Providers Care Public Speaker Name Role Phone Marcela Pinto MD Primary Care Provider + Reason for Visit * Reason Onset Date Comments Specimen Urine 10/09/2022 Encounter Details Date Type Department Care Team Description [facility] [address] [place] [address] Mirlande [place] RN [address] [place] [address] Specimen Urine Allergies Active Allergy Reactions Severity Noted Date Comments Valsartan 07/10/2010 Enalapril 05/21/2006 Escitalopram Oxalate Nausea/vomiting 10/11/2009 Nauseated Iodinated Diagnostic Agents Nausea/vomiting 05/2010 IV Contrast Iodine Hives 12/18/2009 IV Contrast Metoprolol Tartrate 11/18/2006 Made pulse low [place] Oil-Black Currant-Vit E 07/10/2010 Verapamil 03/21/2004 Bupropion Hcl 10/30/2009 Makes pt sick in the stomach documented as of this encounter (statuses as of 10/09/2022) Medications Medication Sig Dispensed Refills Start Date [...] Respimat 1.25 MCG/ACT Inhalation Aerosol Solution (Tiotropium [place] Monohydrate) Inhale by mouth 2 Puffs daily [...] as of this encounter (statuses as of 10/09/2022) Active Problems Problem Noted Date Protein-calorie malnutrition [...] as of this encounter (statuses as of 10/09/2022) Resolved Problems Problem Noted Date Resolved Date [...] Hypoxemia 10/08/2011 10/30/2015 Genetic Sleep Disorder Research Other*[id number] 07/25/2011 05/15/2016 COPD, moderate 07/19/2011 07/28/2019 Overview: [...] as of this encounter (statuses as of 10/09/2022) Immunizations Name Administration Dates Next Due COVID-19 mRNA, LNP-s, No Pre serve, 2-Dose Series ([employer]) 08/21/2021,12/22/2020,2020 COVID-19, LNP-s, No Preserve , Tyler-sucrose, Ages 12+ (Pfizer) 04/16/2022 Hepatitis B, 20+ yrs 10/01/2017,04/21/2017,03/20 Pneumococcal Conjugate Vacc, 13 Valent (Prevnar) 03/28/2015 Pneumococcal Conjugate Vacci ne, 20-valent ([id number]) 04/01/2022 Pneumococcal Polysaccharide PPV23 (Pneumovax) 05/21/2006 Seasonal [...] encounter Miscellaneous Notes * Telephone Encounter - Mirlande [place] RN - 10/09/2022 9:02 AM EST Attempted to call pts daughter Stephani, no answer. LMOM that per Urology pt needs a urine culture done before surgery. Can go to any [facility] to provide specimen. Should be within 2 weeks of surgery. Provided our office number for any questions. documented in this encounter Plan of Treatment Upcoming Encounters Date Type Specialty Care Team Description 10/10/2022 Office Visit Internal Medicine Marcela iPnto MD [address] [place] [address] 10/29/2022 Nurse Only Ancillary Doran, Pre Surgical Covid Testing Connie [address] [facility] [place] [address] 10/31/2022 Hospital Encounter Dionte Snyder MD [address] [place] [address] 11/01/2022 Hospital Encounter Surgery Dionte Snyder MD [address] [place] [address] 11/01/2022 Surgery Surgery Dionte Snyder MD [address] [place] [address] LAPAROSCOPIC PARTIAL COLECTOMY WITH COLOPROCTOSTOMY 11/04/2022 Office Visit Hematology Oncology Ida Cueva CRNP [address] [place], [place] [phone] 11/08/2022 Scheduled Telephone General Surgery Colorectal, Nurse Follow Up Phone Call Schedule [address] [place] [address] 11/26/2022 Office Visit General Surgery Teresita Padron, PAAvelinoC [address] [place], [place] [phone] 12/23/2022 Office Visit Orthopedics Eliezer Gifford, DO [address] [facility] [place] [address] 01/03/2023 Office Visit Cardiology Hammad Lopez, DO [address] [place] [address] Scheduled Procedures Name Priority Associated Diagnoses Date/Ti [...] Additional history exists CKD PHOS USE SMARTSET 77477 08/05/202307/14, 02/19/2022, 03/09/2021, Additional history exists CKD HGB USE SMARTSET 26704 08/19/202308/19, 08/12/2022, 08/06/2022, Additional history exists O2 [...] daniel occurred with: Not Discussed Care Teams Public Speaker Relationship Specialty Start Date End Date Marcela Pinto MD [address] [place] [address] PCP - General Internal Medicine 08/04/14 documented as of this encounter
--- OUTSIDE RECORDS SUMMARY | 2023-06-18 02:33 | External Medical Summary | Summary of Care ---
Author Name Unknown Organization [place] [address] Care Team Providers Care Cosmetic Account Coordinator Name Role Phone Marcela Pinto MD Primary Care Provider + Reason for Visit * Reason Onset Date Comments Appointment 09/20/2022 Encounter Details Date Type Department Care Team Description 09/20/2022 Correctional Officer Telephone Care Coordination [address] [place] [address] Joanna Smith, RN Appointment Allergies Active Allergy Reactions Severity Noted Date Comments Valsartan 07/10/2010 Enalapril 05/21/2006 Escitalopram Oxalate Nausea/vomiting 10/11/2009 Nauseated Iodinated Diagnostic Agents Nausea/vomiting 05/2010 IV Contrast Iodine Hives 12/18/2009 IV Contrast Metoprolol Tartrate 11/18/2006 Made pulse low [place] Oil-Black Currant-Vit E 07/10/2010 Verapamil 03/21/2004 Bupropion Hcl 10/30/2009 Makes pt sick in the stomach documented as of this encounter (statuses as of 09/20/2022) Medications Medication Sig Dispensed Refills Start Date [...] Respimat 1.25 MCG/ACT Inhalation Aerosol Solution (Tiotropium [place] Monohydrate) Inhale by mouth 2 Puffs daily [...] EVERY DAY 90 Tablet 3 05/02/2022 Active Promethazine HCl 25 MG Oral Tablet (Phenergan)Indicatio ns:Generalized osteoarthritis TAKE 1 TABLET BY MOUTH EVERY 6 HOURS NEEDED FOR NAUSEA 60 Tablet 2 05/03/2022 Active Sertraline HCl 25 MG Oral Tablet (Zoloft)Indications: Major depressive disorder with single episode, in partial remission (HCC),HECTOR (generalized anxiety disorder) TAKE 1 TABLET BY MOUTH EVERY DAY IN THE MORNING 90 Tablet 1 06/12/2022 Active Omeprazole 20 MG Oral Capsule Delayed Release (PriLOSEC)Indication s:Ischemic colitis ([facility]) TAKE 1 CAPSULE BY MOUTH TWICE A [...] Pain, Mild. 120 Tablet 0 09/19/2022 Active Metoprolol Succinate ER 25 MG Oral Tablet Extended Release 24 Hour (toPROL XL)Indications:Chron ic 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),NICM (nonischemic cardiomyopathy) (HCC),Presence of Watchman left atrial appendage closure device TAKE 1/2 TABLET BY MOUTH EVERY DAY 45 Tablet 3 09/19/2022 Active documented as of this encounter (statuses as of 09/20/2022) Active Problems Problem Noted Date Protein-calorie malnutrition [...] as of this encounter (statuses as of 09/20/2022) Resolved Problems Problem Noted Date Resolved Date [...] Hypoxemia 10/08/2011 10/30/2015 Genetic Sleep Disorder Research Other*[id number] 07/25/2011 05/15/2016 COPD, moderate 07/19/2011 07/28/2019 Overview: [...] as of this encounter (statuses as of 09/20/2022) Immunizations Name Administration Dates Next Due COVID-19 mRNA, LNP-s, No Pre serve, 2-Dose Series ([employer]) 08/21/2021,12/22/2020,2020 COVID-19, LNP-s, No Preserve , Tyler-sucrose, Ages 12+ (Pfizer) 04/16/2022 Hepatitis B, 20+ yrs 10/01/2017,04/21/2017,03/20 Pneumococcal Conjugate Vacc, 13 Valent (Prevnar) 03/28/2015 Pneumococcal Conjugate Vacci ne, 20-valent ([id number]) 04/01/2022 Pneumococcal Polysaccharide PPV23 (Pneumovax) 05/21/2006 Seasonal [...] encounter Miscellaneous Notes * Telephone Encounter - Joanna Smith RN - 09/20/2022 9:59 AM EST Entered in error documented in this encounter Plan of Treatment Upcoming Encounters Date Type Specialty Care Team Description 09/24/2022 Office Visit Orthopedics Eliezer Gifford, DO [address] [facility] [address] 09/26/2022 Office Visit Interventional Radiology David JerryDO [address] [place] [address] 10/10/2022 Office Visit Internal Medicine Marcela Pinto MD 200 [place] [address] 10/29/2022 Nurse Only Ancillary Doran, Pre Surgical Covid Testing Connie [address] [place] [address] 10/31/2022 Hospital Encounter Dionte Snyder MD [address] [place], [place] [phone] 11/01/2022 Hospital Encounter Surgery Dionte Snyder MD [address] [place] [address] 11/01/2022 Surgery Surgery Dionte Snyder MD [address] [place] [address] LAPAROSCOPIC PARTIAL COLECTOMY WITH COLOPROCTOSTOMY 11/04/2022 Office Visit Hematology Oncology Ida Cueva CRNP [address] [place] [address] 11/08/2022 Scheduled Telephone General Surgery Colorectal, Nurse Follow Up Phone Call Schedule [address] [place] [address] 11/26/2022 Office Visit General Surgery Teresita Padron PA-C [address] [place], [place] [id number] 01/03/2023 Office Visit Cardiology Hammad Lopez, DO [address] [place] [address] Scheduled Procedures Name Priority Associated Diagnoses Date/Ti [...] Additional history exists CKD PHOS USE SMARTSET 91469 08/05/202307/14, 02/19/2022, 03/09/2021, Additional history exists CKD HGB USE SMARTSET 75763 08/19/202308/19, 08/12/2022, 08/06/2022, Additional history exists O2 [...] daniel occurred with: Not Discussed Care Teams Cosmetic Account Coordinator Relationship Specialty Start Date End Date Marcela Pinto MD 200 [facility] [place], [place] [address] PCP - General Internal Medicine 08/04/14 documented as of this encounter
--- OUTSIDE RECORDS SUMMARY | 2023-06-18 02:33 | External Medical Summary | Summary of Care ---
Author Name Unknown Organization [place] [address] Care Team Providers Care Bioprocess Development Engineer Name Role Phone Marcela Pinto MD Primary Care Provider + Reason for Visit * Reason Onset Date Comments Med Request 09/19/2022 Advice 09/19/2022 Encounter Details Date Type Department Care Team Description 09/19/2022 Telephone General Internal Medicine [facility] [address] [place] [address] Marcela Pinto MD [address] [place] [address] Med Request; Advice Allergies Active Allergy Reactions Severity Noted Date Comments Valsartan 07/10/2010 Enalapril 05/21/2006 Escitalopram Oxalate Nausea/vomiting 10/11/2009 Nauseated Iodinated Diagnostic Agents Nausea/vomiting 05/2010 IV Contrast Iodine Hives 12/18/2009 IV Contrast Metoprolol Tartrate 11/18/2006 Made pulse low [place] Oil-Black Currant-Vit E 07/10/2010 Verapamil 03/21/2004 Bupropion Hcl 10/30/2009 Makes pt sick in the stomach documented as of this encounter (statuses as of 09/23/2022) Medications Medication Sig Dispensed Refills Start Date [...] Take 81 mg by mouth daily. 0 1 Active Spiriva Respimat 1.25 MCG/ACT Inhalation Aerosol Solution (Tiotropium [place] Monohydrate) Inhale by mouth 2 Puffs daily . 0 Active Dicyclomine HCl 20 MG Oral Tablet (Bentyl)Indication s:Chronic constipation TAKE 1 TABLET BY MOUTH EVERY DAY 90 Tablet 2 2 Active Ferrous Sulfate 325 (65 Fe) MG Oral Tablet (Feosol) Take by mouth 1 Tablet in the morning. 0 2 Active Zafirlukast [...] Delayed Release (Mag-64) 64 mg . 0 2 Active Klor-Con M20 20 [...] the morning. 90 Tablet 1 2 Active Ciprofloxacin HCl 500 MG Oral Tablet (Cipro)Indications :Diverticulitis of intestine with abscess, unspecified bleeding status, unspecified part of intestinal tract Take 1 Tablet (500 mg) by mouth in the morning and 1 Tablet (500 mg) before bedtime. Do all this for 10 days. 20 Tablet 0 2 09/26/20 22 Active metroNIDAZOLE 500 MG Oral TabletIndications: Diverticulitis of intestine with abscess, unspecified bleeding status, unspecified part of intestinal tract Take 1 Tablet (500 mg) by mouth in the morning and 1 Tablet (500 mg) at noon and 1 Tablet (500 mg) before bedtime. Do all this for 10 days. 30 Tablet 0 2 09/26/20 22 Active HYDROcodone-Acetam inophen 5-325 MG Oral TabletIndications: Generalized osteoarthritis Take 1 Tablet by mouth every 6 hours as needed for Pain, Mild. 120 Tablet 0 2 Active Metoprolol Succinate ER 25 MG [...] NEEDED FOR NAUSEA 60 Tablet 2 2 09/23/20 22 Discontinued documented as of this encounter (statuses as of 09/23/2022) Active Problems Problem Noted Date Protein-calorie malnutrition [...] as of this encounter (statuses as of 09/23/2022) Resolved Problems Problem Noted Date Resolved Date Type 2 diabetes mellitus wit h stage 3a chronic kidney disease 05/21/2021 11/19/2021 Overview: Per CKD protocol Asthma in remission 01/09/2021 03/05/2021 Asthma, mild persistent 01/09/2021 03/05/20 21 Asthma, moderate persistent 01/09/2021 0501/2021 Asthma, severe persistent 01/09/20212020 Intermittent asthma with reliever use up to twic e per week 01/09/2021 03/05/2021 Diabetes mellitus with stage 3 chronic kidney di henriettae 05/22/2020 05/29/2021 Overview: Per CKD protocol Body [...] Hypoxemia 10/08/2011 10/30/2015 Genetic Sleep Disorder Research Other*[id number] 07/25/2011 05/15/2016 COPD, moderate 07/19/2011 07/28/2019 Overview: [...] as of this encounter (statuses as of 09/23/2022) Immunizations Name Administration Dates Next Due COVID-19 mRNA, LNP-s, No Pre serve, 2-Dose Series ([employer]) 08/21/2021,12/22/2020,2020 COVID-19, LNP-s, No Preserve , Tyler-sucrose, Ages 12+ (Pfizer) 04/16/2022 Hepatitis B, 20+ yrs 10/01/2017,04/21/2017,03/20 Pneumococcal Conjugate Vacc, 13 Valent (Prevnar) 03/28/2015 Pneumococcal Conjugate Vacci ne, 20-valent ([id number]) 04/01/2022 Pneumococcal Polysaccharide PPV23 (Pneumovax) 05/21/2006 Seasonal [...] Telephone Encounter - Marcela Pinto MD - 09/23/2022 12:42 PM EST See another encounter I sent to nurse briones and Sigrid pillowcase cleaner. If patient feels she has a flare-up of diverticulitis at this time then she should start taking Cipro and Flagyl I have sent to her pharmacy last week. She should also continue both antibiotic until the day of her surgery in October. This is the recommendation by ID when I asked this question through ask a doc. * Telephone Encounter - JORDAN Shelley - 09/19/2022 10:09 AM EST Pt's daughter Stephani called regarding medication refill. She needs to know if pt needs to take medication everyday til the surgery. Also Stephani is returning call to Joanna pillowcase cleaner, however unable to transfer to her, so please advise Joanna that Stephani returned her call. CallbacK: [phone] * Telephone Encounter - Dodie Carson LPN - 09/19/2022 9:52 AM EST Pt calling in today with complaints of of left sided abdominal pain Believes its her diverticulitis acting up again Reviewed TE from 09/16/22 Pt aware and conveyed verbal understanding and will start meds now documented in this encounter Plan of Treatment Upcoming Encounters Date Type Specialty Care Team Description 09/24/2022 Office Visit Orthopedics Eliezer Gifford, DO [address] [facility] [place] [address] 09/30/2022 Office Visit Interventional Radiology Jerry Hernandez DO [address] [place] [address] 10/10/2022 Office Visit Internal Medicine Marcela Pinto MD 200 [place] [address] 10/29/2022 Nurse Only Ancillary Doran, Pre Surgical Covid Testing Connie [address] [place] [address] 10/31/2022 Hospital Encounter Dionte Snyder MD [address] [place] [address] 11/01/2022 Hospital Encounter Surgery Dionte Snyder MD [address] [place] [address] 11/01/2022 Surgery Surgery Dionte Snyder MD [address] [place] [address] LAPAROSCOPIC PARTIAL COLECTOMY WITH COLOPROCTOSTOMY 11/04/2022 Office Visit Hematology Oncology Ida Cueva CRNP 400 [facility] [place], [place] [phone] 11/08/2022 Scheduled Telephone General Surgery Colorectal, Nurse Follow Up Phone Call Schedule [address] [place], [place] [address] 11/26/2022 Office Visit General Surgery Teresita Padron PA-C [address] [place] [address] 01/03/2023 Office Visit Cardiology Hammad Lopez, [address] [place] [address] Scheduled Procedures Name Priority Associated Diagnoses Date/Ti [...] Additional history exists CKD PHOS USE SMARTSET 44771 08/05/202307/14, 02/19/2022, 03/09/2021, Additional history exists CKD HGB USE SMARTSET 83715 08/19/202308/19, 08/12/2022, 08/06/2022, Additional history exists O2 [...] daniel occurred with: Not Discussed Care Teams Bioprocess Development Engineer Relationship Specialty Start Date End Date Marcela Pinto MD 200 [facility] [place] [address] PCP - General Internal Medicine 08/04/14 documented as of this encounter
--- OUTSIDE RECORDS SUMMARY | 2023-06-18 02:33 | External Medical Summary | Summary of Care ---
Author Name Unknown Organization [place] [address] Care Team Providers Care Harness Rigger Name Role Phone Marcela Pinto MD Primary Care Provider + Reason for Visit * Reason Comments Joint Pain Right shoulder Encounter Details Date Type Department Care Team Description 09/24/2022 Office Visit Orthopaedics [facility] [address] [facility] [place] [address] Eliezer Gifford, 132 [facility] [place] [address] Primary osteoarthritis of right shoulder*; Nontraumatic complete tear of right rotator cuff Allergies Active Allergy Reactions Severity Noted Date Comments Valsartan 07/10/2010 Enalapril 05/21/2006 Escitalopram Oxalate Nausea/vomiting 10/11/2009 Nauseated Iodinated Diagnostic Agents Nausea/vomiting 05/2010 IV Contrast Iodine Hives 12/18/2009 IV Contrast Metoprolol Tartrate 11/18/2006 Made pulse low [place] Oil-Black Currant-Vit E 07/10/2010 Verapamil 03/21/2004 Bupropion [...] Respimat 1.25 MCG/ACT Inhalation Aerosol Solution (Tiotropium [place] Monohydrate) Inhale by mouth 2 Puffs daily [...] rotator cuff 2 mL IJ ONCE 09/24/2022 09/25/2022 Active documented as of this encounter (statuses [...] Hypoxemia 10/08/2011 10/30/2015 Genetic Sleep Disorder Research Other*[id number] 07/25/2011 05/15/2016 COPD, moderate 07/19/2011 07/28/2019 Overview: [...] mRNA, LNP-s, No Pre serve, 2-Dose Series ([employer]) 08/21/2021,12/22/2020,2020 COVID-19, LNP-s, No Preserve , Tyler-sucrose, Ages 12+ (Pfizer) 04/16/2022 Hepatitis B, 20+ yrs 10/01/2017,04/21/2017,03/20 Pneumococcal Conjugate Vacc, 13 Valent (Prevnar) 03/28/2015 Pneumococcal Conjugate Vacci ne, 20-valent ([id number]) 04/01/2022 Pneumococcal Polysaccharide PPV23 (Pneumovax) 05/21/2006 Seasonal [...] - 09/24/2022 1:00 PM EST Nina Harrington [phone] Nina Harrington is a 81 year old female who presents for f/u to [facility] for right shoulder injury/pain. 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 Tobacco Use Smoking status: Never Smokeless tobacco: [...] Respimat 1.25 MCG/ACT Inhalation Aerosol Solution (Tiotropium [place] Monohydrate) Inhale by mouth 2 Puffs daily [...] Gifford, DO Primary Care Sports Medicine Orthopaedics [facility] [address] [facility] [place] [address] Procedure note (shoulder glenohumoral joint injection) on [...] Visit Interventional Radiology [facility] [phone] 10/10/2022 Office Visit Internal Medicine [facility] [address] 10/29/2022 Nurse Only Ancillary Doran, Pre Surgical Covid Testing Connie [address] [place] [address] 10/31/2022 Hospital Encounter Dionte Snyder MD [address] [place] [address] 11/01/2022 Hospital Encounter Surgery Dionte Snyder MD [address] [place], [place] [phone] 11/01/2022 Surgery Surgery Dionte Snyder MD [address] [place] [address] LAPAROSCOPIC PARTIAL COLECTOMY WITH COLOPROCTOSTOMY 11/04/2022 Office Visit Hematology Oncology Ida Cueva CRNP 400 [facility] [place] [phone] 11/08/2022 Scheduled Telephone General Surgery Colorectal, Nurse Follow Up Phone Call Schedule [address] [place] [address] 11/26/2022 Office Visit General Surgery Teresita Padron PA-C [address] [place] [address] 12/23/2022 Office Visit Orthopedics Eliezer Gifford, DO [address] [facility] [address] 01/03/2023 Office Visit Cardiology Hammad Lopez, DO [address] [place] [address] Scheduled Procedures Name Priority Associated Diagnoses Date/Ti [...] Additional history exists CKD PHOS USE SMARTSET 84571 08/05/202307/14, 02/19/2022, 03/09/2021, Additional history exists CKD HGB USE SMARTSET 65786 08/19/202308/19, 08/12/2022, 08/06/2022, Additional history exists O2 [...] PM EST Narrative 09/24/2022 1:16 PM EST [facility] - Ultrasound Program Exam Date: 09/24/2022 Exam Type: Ortho Microfiche Duplicator: Eliezer Gifford Attending: Eliezer Gifford Worksheet: Ortho [...] Procedure Note Eliezer Gifford DO - 09/24/2022 [facility] - Ultrasound Program Exam Date: 09/24/2022 Exam Type: Ortho Microfiche Duplicator: Eliezer Gifford Attending: Eliezer Gifford Worksheet: Ortho [...] daniel occurred with: Not Discussed Care Teams Harness Rigger Relationship Specialty Start Date End Date Marcela Pinto MD 200 [facility] [place] [address] PCP - General Internal Medicine 08/04/14 documented as of this encounter
--- OUTSIDE RECORDS SUMMARY | 2023-06-18 02:33 | External Medical Summary | Summary of Care ---
Author Name Unknown Organization [place] [address] Care Team Providers Care Information Systems Auditor Name Role Phone Marcela Pinto MD Primary Care Provider + Reason for Referral * Medication Prior Authorization - Pending Review Specialty Diagnoses / Procedures Referred By Contac t Referred To Contact Diagnoses Generalized osteoarthritis Marcela Pinto MD 200 [facility] [place] [address] Referral ID Status Reason Start Date Expiration Date V isits Requested Visits Authorized [id number] Pending Review 999 999 Reason for Visit * Reason Comments eRx-Medication Refill Encounter Details Date Type Department Care Team Description 09/18/2022 Refill General Internal Medicine [facility] [address] [place] [address] Marcela Pinto MD 200 [facility] [place] [address] GENERAL OSTEOARTHROSIS Allergies Active Allergy Reactions Severity Noted Date Comments Valsartan 07/10/2010 Enalapril 05/21/2006 Escitalopram Oxalate Nausea/vomiting 10/11/2009 Nauseated Iodinated Diagnostic Agents Nausea/vomiting 05/2010 IV Contrast Iodine Hives 12/18/2009 IV Contrast Metoprolol Tartrate 11/18/2006 Made pulse low [place] Oil-Black Currant-Vit E 07/10/2010 Verapamil 03/21/2004 Bupropion [...] Respimat 1.25 MCG/ACT Inhalation Aerosol Solution (Tiotropium [place] Monohydrate) Inhale by mouth 2 Puffs daily [...] ns:Asthma with severity to be determined,COPD, moderate ([place] [...] Pain, Mild. 120 Tablet 0 2 Active Promethazine HCl 25 [...] Hypoxemia 10/08/2011 10/30/2015 Genetic Sleep Disorder Research Other*[id number] 07/25/2011 05/15/2016 COPD, moderate 07/19/2011 07/28/2019 Overview: [...] (Prevnar) 03/28/2015 Pneumococcal Conjugate Vacci ne, 20-valent ([id number]) 04/01/2022 Pneumococcal Polysaccharide PPV23 (Pneumovax) 05/21/2006 Seasonal [...] Encounter - Marcela Pinto MD - 09/23/2022 11:23 AM ESTSigned Prescriptions: Disp Refills Promethazine HCl 25 MG Oral Tablet (Phener*60 Tab*2 Sig: TAKE 1 TABLET BY MOUTH EVERY 6 HOURS NEEDED FOR NAUSEA Authorizing Provider: MARCELA PINTO * Telephone Encounter - Bobbi Fitch LPN - 09/23/2022 10:59 AM ESTPending Prescriptions: Disp Refills Promethazine HCl 25 MG Oral Tablet [Pharma*60 Tab*2 Sig: TAKE 1 TABLET BY MOUTH EVERY 6 HOURS NEEDED FOR NAUSEA * Telephone Encounter - Bobbi Fitch LPN - 09/23/2022 10:59 AM EST Did you pend patient's preferred pharmacy and medication before forwarding?yes Pharmacy: [id number] [facility] Pending Prescriptions: Disp Refills Promethazine HCl 25 MG Oral Tablet (Phene*60 Tab*2 Sig: TAKE 1 TABLET BY MOUTH EVERY 6 HOURS NEEDED FOR NAUSEA Last Visit: 08/15/2022 (in office), 08/08/2020 (telemedicine) Next Visit: 10/10/2022 If no future appointments scheduled, and last appointment is greater than a year ago, please schedule patient for a follow-up appointment Last date the medication was ordered: 05/03/2022 Is this request for a controlled substance?No [...] AM HGBA1C 6.6 (H) 08/26/2019 02:55 PM * Telephone Encounter - Amanda Dubose - 09/18/2022 6:33 PM ESTPending Prescriptions: Disp Refills Promethazine HCl 25 MG Oral Tablet [Pharma*60 Tab*2 Sig: TAKE 1 TABLET BY MOUTH EVERY 6 HOURS NEEDED FOR NAUSEA documented in this encounter Plan of Treatment Upcoming Encounters Date Type Specialty Care Team Description 09/24/2022 Office Visit Orthopedics Eliezer Gifford DO 132 [facility] [place] [address] 09/30/2022 Office Visit Interventional Radiology Jerry Hernandez DO [address] [place] [phone] 10/10/2022 Office Visit Internal Medicine Marcela Pinto MD 200 [place] [address] 10/29/2022 Nurse Only Ancillary Doran, Pre Surgical Covid Testing Connie [address] [place] [address] 10/31/2022 Hospital Encounter Dionte Snyder MD [address] [place] [address] 11/01/2022 Hospital Encounter Surgery Dionte Snyder MD [address] [place], [place] [phone] 11/01/2022 Surgery Surgery Dionte Snyder MD [address] [place], [place] [phone] LAPAROSCOPIC PARTIAL COLECTOMY WITH COLOPROCTOSTOMY 11/04/2022 Office Visit Hematology Oncology Ida Cueva CRNP [address] [place] [address] 11/08/2022 Scheduled Telephone General Surgery Colorectal, Nurse Follow Up Phone Call Schedule [address] [place], [place] [phone] 11/26/2022 Office Visit General Surgery Teresita Padron PA-C [address] [place] [address] 01/03/2023 Office Visit Cardiology Hammad Lopez DO [address] [place] [address] Scheduled Procedures Name Priority Associated Diagnoses Date/Ti [...] Additional history exists CKD PHOS USE SMARTSET 70627 08/05/202307/14, 02/19/2022, 03/09/2021, Additional history exists CKD HGB USE SMARTSET 11299 08/19/202308/19, 08/12/2022, 08/06/2022, Additional history exists O2 [...] daniel occurred with: Not Discussed Care Teams Information Systems Auditor Relationship Specialty Start Date End Date Marcela Pinto MD 200 [facility] [place] [address] PCP - General Internal Medicine 08/04/14 documented as of this encounter
--- OUTSIDE RECORDS SUMMARY | 2023-06-18 02:33 | External Medical Summary | Summary of Care ---
Author Name Unknown Organization [place] [address] Care Team Providers Care Door Liner Helper Name Role Phone Marcela Pinto MD Primary Care Provider + Reason for Visit * Reason Onset Date Comments Case Management Plan Of Care 09/23/2022 New antibiotics / abd pain / diverticular flare Encounter Details Date Type Department Care Team Description 09/23/2022 Telephone General Internal Medicine [facility] [place] [address] [facility] [place] [address] Marcela Pinto MD [address] [facility] [place] [phone] Case Management Plan Of Care (New antibiot... Allergies Active Allergy Reactions Severity Noted Date Comments Valsartan 07/10/2010 Enalapril 05/21/2006 Escitalopram Oxalate Nausea/vomiting 10/11/2009 Nauseated Iodinated Diagnostic Agents Nausea/vomiting 05/2010 IV Contrast Iodine Hives 12/18/2009 IV Contrast Metoprolol Tartrate 11/18/2006 Made pulse low [place] Oil-Black Currant-Vit E 07/10/2010 Verapamil 03/21/2004 Bupropion [...] Respimat 1.25 MCG/ACT Inhalation Aerosol Solution (Tiotropium [place] Monohydrate) Inhale by mouth 2 Puffs daily [...] Hypoxemia 10/08/2011 10/30/2015 Genetic Sleep Disorder Research Other*[id number] 07/25/2011 05/15/2016 COPD, moderate 07/19/2011 07/28/2019 Overview: [...] mRNA, LNP-s, No Pre serve, 2-Dose Series (Ice Energy) 08/21/2021,12/22/2020,2020 COVID-19, LNP-s, No Preserve , Tyler-sucrose, Ages 12+ (Pfizer) 04/16/2022 Hepatitis B, 20+ yrs 10/01/2017,04/21/2017,03/20 Pneumococcal Conjugate Vacc, 13 Valent (Prevnar) 03/28/2015 Pneumococcal Conjugate Vacci ne, 20-valent ([id number]) 04/01/2022 Pneumococcal Polysaccharide PPV23 (Pneumovax) 05/21/2006 Seasonal [...] Telephone Encounter - Marcela Pinto MD - 09/24/2022 9:29 AM EST Jose Matta, Yes as per ID if she is symptomatic, start cipro and flagyl and continue patrice the day of the surgery. It was an error and I sent only for 10 days. Will send another script for little over month whichcan last till the day of surgery. Please inform. She should also watch for any side effects and take probiotics. Thanks. * Telephone Encounter - Sigrid Montano RN - 09/23/2022 1:43 PM EST Jose Pinto -- I sent you a teams message to clarify as the 09/13 ask-a-doc seems to say to take these antibiotics until date of surgery, not just for 10 days I did try to call Stephani (daughter) and left message requesting a call back to my direct number or to IM. I also tried Nina: "I am in a lot of pain in the one spot way down low" Also using probiotic BM are good "better than they've been in a long time" - denies diarrhea or blood, real dark but is on iron Voiding okay Denies fever or other symptoms States she started the new antibiotics two days ago "and they really upset my stomach" Advised to finish this entire 10 days worth and let us know immediately if any continuing symptoms. Thank you. * Telephone Encounter - Marcela Pinto MD - 09/23/2022 12:40 PM EST Sigrid, Thanks for the info. I tried calling patient and her daughter Mitali but I could not talk to her and I left her a voicemail. I explained that if she has any fever, any ongoing symptoms of diverticulitis flare-up then she should start taking Cipro and Flagyl which I sent it to her pharmacy not ID. I also advised her to call the office or contact you if any further questions. If he can call billie find out how patient is doing I would appreciate. Again if she has any ongoing symptoms including but not limited to fever, abdominal pain or any symptoms similar to diverticular flare-up then she should start taking Cipro and Flagyl I sent it to her pharmacy few days back and continue until the date of surgery. She should also inform the surgeon or update them regarding this. Thanks. documented in this encounter Plan of Treatment Upcoming Encounters Date Type Specialty Care Team Description 09/24/2022 Office Visit Orthopedics Eliezer Gifford DO [address] [facility] [place] [address] 09/30/2022 Office Visit Interventional Radiology [facility] [address] [facility] [place] [id number] 10/10/2022 Office Visit Internal Medicine Marcela Pinto MD [address] [place] [address] 10/29/2022 Nurse Only Ancillary Doran, Pre Surgical Covid Testing Connie [address] [place] [address] 10/31/2022 Hospital Encounter Dionte Snyder MD [address] [place] [address] 11/01/2022 Hospital Encounter Surgery Dionte Snyder MD [address] [place], [place] [phone] 11/01/2022 Surgery Surgery Dionte Snyder MD [address] [place] [address] LAPAROSCOPIC PARTIAL COLECTOMY WITH COLOPROCTOSTOMY 11/04/2022 Office Visit Hematology Oncology Ida Cueva CRNP [address] [place] [id number] 11/08/2022 Scheduled Telephone General Surgery Colorectal, Nurse Follow Up Phone Call Schedule [address] [place] [address] 11/26/2022 Office Visit General Surgery Teresita Padron PA-C [address] [facility] [place] [address] 01/03/2023 Office Visit Cardiology Hammad Lopez, DO [address] [place] [address] Scheduled Procedures Name Priority Associated Diagnoses Date/Ti [...] Additional history exists CKD PHOS USE SMARTSET 70725 08/05/202307/14, 02/19/2022, 03/09/2021, Additional history exists CKD HGB USE SMARTSET 23630 08/19/202308/19, 08/12/2022, 08/06/2022, Additional history exists O2 [...] daniel occurred with: Not Discussed Care Teams Door Liner Helper Relationship Specialty Start Date End Date Marcela Pinto MD 200 [facility] [address] PCP - General Internal Medicine 08/04/14 documented as of this encounter
--- OUTSIDE RECORDS SUMMARY | 2023-06-18 02:33 | External Medical Summary | Summary of Care ---
Author Name Unknown Organization [place] [address] Care Team Providers Care Load Test Mechanic Name Role Phone Marcela Pinto MD Primary Care Provider + Reason for Visit * Reason Onset Date Comments Med Request 09/19/2022 Advice 09/19/2022 Encounter Details Date Type Department Care Team Description 09/19/2022 Telephone General Internal Medicine [facility] [address] [place] [address] Marcela Pinto MD [address] [place] [address] Med Request; Advice Allergies Active Allergy Reactions Severity Noted Date Comments Valsartan 07/10/2010 Enalapril 05/21/2006 Escitalopram Oxalate Nausea/vomiting 10/11/2009 Nauseated Iodinated Diagnostic Agents Nausea/vomiting 05/2010 IV Contrast Iodine Hives 12/18/2009 IV Contrast Metoprolol Tartrate 11/18/2006 Made pulse low [place] Oil-Black Currant-Vit E 07/10/2010 Verapamil 03/21/2004 Bupropion Hcl 10/30/2009 Makes pt sick in the stomach documented as of this encounter (statuses as of 09/19/2022) Medications Medication Sig Dispensed Refills Start Date [...] Respimat 1.25 MCG/ACT Inhalation Aerosol Solution (Tiotropium [place] Monohydrate) Inhale by mouth 2 Puffs daily [...] :Asthma with severity to be determined,COPD, moderate ([facility]) TAKE 1 PUFF BY MOUTH 4 TIMES [...] as of this encounter (statuses as of 09/19/2022) Active Problems Problem Noted Date Protein-calorie malnutrition [...] as of this encounter (statuses as of 09/19/2022) Resolved Problems Problem Noted Date Resolved Date [...] Hypoxemia 10/08/2011 10/30/2015 Genetic Sleep Disorder Research Other*[id number] 07/25/2011 05/15/2016 COPD, moderate 07/19/2011 07/28/2019 Overview: [...] as of this encounter (statuses as of 09/19/2022) Immunizations Name Administration Dates Next Due COVID-19 mRNA, LNP-s, No Pre serve, 2-Dose Series (Omaze) 08/21/2021,12/22/2020,2020 COVID-19, LNP-s, No Preserve , Tyler-sucrose, Ages 12+ (Pfizer) 04/16/2022 Hepatitis B, 20+ yrs 10/01/2017,04/21/2017,03/20 Pneumococcal Conjugate Vacc, 13 Valent (Prevnar) 03/28/2015 Pneumococcal Conjugate Vacci ne, 20-valent ([id number]) 04/01/2022 Pneumococcal Polysaccharide PPV23 (Pneumovax) 05/21/2006 Seasonal [...] Miscellaneous Notes * Telephone Encounter - JORDAN Shelley - 09/19/2022 10:09 AM EST Pt's daughter Stephani called regarding medication refill. She needs to know if pt needs to take medication everyday til the surgery. Also Stephani is returning call to Joanna, field nurse case manager, however unable to transfer to her, so please advise Joanna that Stephani returned her call. CallbacK: [phone] * Telephone Encounter - Dodie Carson LPN [...] Description 09/24/2022 Office Visit Orthopedics Eliezer Gifford, [address] [facility] [place] [address] 10/10/2022 Office Visit Internal Medicine Marcela Pinto MD [address] [place] [address] 10/29/2022 Nurse Only Ancillary Doran, Pre Surgical Covid Testing Connie [address] [place] [address] 10/31/2022 Hospital Encounter Dionte Snyder MD [address] [place] [address] 11/01/2022 Hospital Encounter Surgery Dionte Snyder MD [address] [place], [place] [phone] 11/01/2022 Surgery Surgery Dionte Snyder MD [address] [place], [place] [phone] LAPAROSCOPIC PARTIAL COLECTOMY WITH COLOPROCTOSTOMY 11/04/2022 Office Visit Hematology Oncology Ida Cueva CRNP [address] [place] [address] 11/08/2022 Scheduled Telephone General Surgery Colorectal, Nurse Follow Up Phone Call Schedule [address] [place] [address] 11/26/2022 Office Visit General Surgery Teresita Padron PA-C [address] [place] [address] 01/03/2023 Office Visit Cardiology Hammad Lopez, DO [address] [place] [address] Scheduled Procedures Name Priority Associated Diagnoses Date/Ti [...] Additional history exists CKD PHOS USE SMARTSET 70090 08/05/202307/14, 02/19/2022, 03/09/2021, Additional history exists CKD HGB USE SMARTSET 64565 08/19/202308/19, 08/12/2022, 08/06/2022, Additional history exists O2 [...] daniel occurred with: Not Discussed Care Teams Load Test Mechanic Relationship Specialty Start Date End Date Marcela Pinto MD [address] [place] [address] PCP - General Internal Medicine 08/04/14 documented as of this encounter
--- OUTSIDE RECORDS SUMMARY | 2023-06-18 02:33 | External Medical Summary | Summary of Care ---
Author Name Unknown Organization [place] [address] Care Team Providers Care Director Day Care Center Name Role Phone Marcela Pinto MD Primary Care Provider + Reason for Visit * Reason Comments case management Encounter Details Date Type Department Care Team Description 09/20/2022 Special Forces Specialist Care Coordination [address] [place] [address] Joanna Smith, RN Medical home patient encounter* Allergies Active Allergy Reactions Severity Noted Date Comments Valsartan 07/10/2010 Enalapril 05/21/2006 Escitalopram Oxalate Nausea/vomiting 10/11/2009 Nauseated Iodinated Diagnostic Agents Nausea/vomiting 05/2010 IV Contrast Iodine Hives 12/18/2009 IV Contrast Metoprolol Tartrate 11/18/2006 Made pulse low [place] Oil-Black Currant-Vit E 07/10/2010 Verapamil 03/21/2004 Bupropion [...] Respimat 1.25 MCG/ACT Inhalation Aerosol Solution (Tiotropium [place] Monohydrate) Inhale by mouth 2 Puffs daily [...] Hypoxemia 10/08/2011 10/30/2015 Genetic Sleep Disorder Research Other*[id number] 07/25/2011 05/15/2016 COPD, moderate 07/19/2011 07/28/2019 Overview: [...] mRNA, LNP-s, No Pre serve, 2-Dose Series (Booklr) 08/21/2021,12/22/2020,2020 COVID-19, LNP-s, No Preserve , Tyler-sucrose, Ages 12+ (Pfizer) 04/16/2022 Hepatitis B, 20+ yrs 10/01/2017,04/21/2017,03/20 Pneumococcal Conjugate Vacc, 13 Valent (Prevnar) 03/28/2015 Pneumococcal Conjugate Vacci ne, 20-valent ([id number]) 04/01/2022 Pneumococcal Polysaccharide PPV23 (Pneumovax) 05/21/2006 Seasonal [...] Progress Notes * Joanna Smith RN - 09/20/2022 9:48 AM EST CM placed follow up call to pt's daughter, Stephani. Stephani states that pt's drain is draining less than 10ml and she has reached out to IR but has not yet received a return call. She also has not yet gotten a call back from [place] regarding pt's PICC line.She picked up the antibiotics for pt yesterday, but there is only a ten day supply of each (Cipro and Flagyl). She is confused about how long she is supposed to take these for as she was told pt was supposed to be on these until her surgery on 10/31/22. documented in this encounter Plan of Treatment Upcoming Encounters Date Type Specialty Care Team Description 09/24/2022 Office Visit Orthopedics Eliezer Gifford, DO [address] [place] [address] 09/26/2022 Office Visit Interventional Radiology [facility] [address] 10/10/2022 Office Visit Internal Medicine Marcela Pinto MD [address] [place] [address] 10/29/2022 Nurse Only Ancillary Doran, Pre Surgical Covid Testing Connie [address] [place] [address] 10/31/2022 Hospital Encounter Dionte Snyder MD [address] [place] [address] 11/01/2022 Hospital Encounter Surgery Dionte Snyder MD [address] [place], [place] [address] 11/01/2022 Surgery Surgery Dionte Snyder MD [address] [place] [address] LAPAROSCOPIC PARTIAL COLECTOMY WITH COLOPROCTOSTOMY 11/04/2022 Office Visit Hematology Oncology Ida Cueva CRNP 400 [facility] [place] [address] 11/08/2022 Scheduled Telephone General Surgery Colorectal, Nurse Follow Up Phone Call Schedule [address] [facility] [address] 11/26/2022 Office Visit General Surgery Teresita Padron PA-C [address] [facility] [place] [address] 01/03/2023 Office Visit Cardiology Hammad Lopez, DO [address] [place] [address] Scheduled Procedures Name Priority Associated Diagnoses Date/Ti [...] Additional history exists CKD PHOS USE SMARTSET 46123 08/05/202307/142, 02/19/2022, 03/09/2021, Additional history exists CKD HGB USE SMARTSET 45268 08/19/202308/19, 08/12/2022, 08/06/2022, Additional history exists O2 [...] daniel occurred with: Not Discussed Care Teams Director Day Care Center Relationship Specialty Start Date End Date Marcela Pinto MD 200 [facility] [place] [address] PCP - General Internal Medicine 08/04/14 documented as of this encounter
--- OUTSIDE RECORDS SUMMARY | 2023-06-18 02:33 | External Medical Summary | Summary of Care ---
Author Name Unknown Organization [place] [address] Care Team Providers Care Radiocommunications Technician Name Role Phone Marcela Pinto MD Primary Care Provider + Reason for Visit * Reason Onset Date Comments Case Management Plan Of Care 09/23/2022 New antibiotics / abd pain / diverticular flare Encounter Details Date Type Department Care Team Description 09/23/2022 Telephone General Internal Medicine [facility] [place] 200 [facility] [place] [address] Marcela Pinto MD [address] [facility] [place] [phone] Case Management Plan Of Care (New antibiot... Allergies Active Allergy Reactions Severity Noted Date Comments Valsartan 07/10/2010 Enalapril 05/21/2006 Escitalopram Oxalate Nausea/vomiting 10/11/2009 Nauseated Iodinated Diagnostic Agents Nausea/vomiting 05/2010 IV Contrast Iodine Hives 12/18/2009 IV Contrast Metoprolol Tartrate 11/18/2006 Made pulse low [place] Oil-Black Currant-Vit E 07/10/2010 Verapamil 03/21/2004 Bupropion [...] Respimat 1.25 MCG/ACT Inhalation Aerosol Solution (Tiotropium [place] Monohydrate) Inhale by mouth 2 Puffs daily [...] Hypoxemia 10/08/2011 10/30/2015 Genetic Sleep Disorder Research Other*[id number] 07/25/2011 05/15/2016 COPD, moderate 07/19/2011 07/28/2019 Overview: [...] mRNA, LNP-s, No Pre serve, 2-Dose Series (Only [place]) 08/21/2021,12/22/2020,2020 COVID-19, LNP-s, No Preserve , Tyler-sucrose, Ages 12+ (Pfizer) 04/16/2022 Hepatitis B, 20+ yrs 10/01/2017,04/21/2017,03/20 Pneumococcal Conjugate Vacc, 13 Valent (Prevnar) 03/28/2015 Pneumococcal Conjugate Vacci ne, 20-valent ([id number]) 04/01/2022 Pneumococcal Polysaccharide PPV23 (Pneumovax) 05/21/2006 Seasonal [...] encounter Miscellaneous Notes * Telephone Encounter - Sigrid Montano RN - 09/24/2022 9:56 AM EST Discussed with daughter Stephania who voiced understanding. * Telephone Encounter - Marcela Pinto MD [...] Montano RN - 09/23/2022 1:[address] Pinto -- I sent you a teams message to clarify as the 09/13 ask-a-doc seems to say to take these antibiotics until date of surgery, not just for 10 days I did try to call Stephania (daughter) and left message requesting a call [...] any further questions. If he can call stephaniaand find out how patient is doing I [...] Visit Orthopedics Eliezer Gifford DO [address] [place] [address] 09/30/2022 Office Visit Interventional Radiology [facility] DO [address] [facility] [id number] 10/10/2022 Office Visit Internal Medicine Marcela Pinto MD [address] [facility] [place] [address] 10/29/2022 Nurse Only Ancillary Doran, Pre Surgical Covid Testing Connie [address] [place] [address] 10/31/2022 Hospital Encounter Dionte Snyder MD [address] [place] [address] 11/01/2022 Hospital Encounter Surgery Dionte Snyder MD [address] [place] [address] 11/01/2022 Surgery Surgery Dionte Snyder MD [address] [place] [address] LAPAROSCOPIC PARTIAL COLECTOMY WITH COLOPROCTOSTOMY 11/04/2022 Office Visit Hematology Oncology Ida Cueva CRNP 400 [facility] [place] [address] 11/08/2022 Scheduled Telephone General Surgery Colorectal, Nurse Follow Up Phone Call Schedule [address] [place] [address] 11/26/2022 Office Visit General Surgery Teresita Padron PA-C [address] [place] [address] 01/03/2023 Office Visit Cardiology Hammad Lopez, DO [address] [place] [address] Scheduled Procedures Name Priority Associated [...] Additional history exists CKD PHOS USE SMARTSET 41431 08/05/202307/14, 02/19/2022, 03/09/2021, Additional history exists CKD HGB USE SMARTSET 25911 08/19/202308/19, 08/12/2022, 08/06/2022, Additional history exists O2 [...] daniel occurred with: Not Discussed Care Teams Radiocommunications Technician Relationship Specialty Start Date End Date Marcela Pinto MD [address] [place] [address] PCP - General Internal Medicine 08/04/14 documented as of this encounter
--- OUTSIDE RECORDS SUMMARY | 2023-06-18 02:33 | External Medical Summary | Summary of Care ---
Author Name Unknown Organization [place] [address] Care Team Providers Care Hand I Thermal Cutter Name Role Phone Marcela Pinto MD Primary Care Provider + Reason for Visit * Reason Onset Date Comments Med Request 09/19/2022 Advice 09/19/2022 Encounter Details Date Type Department Care Team Description 09/19/2022 Telephone General Internal Medicine [facility] [place] [address] [place] [address] Marcela Pinto MD [address] [place] [address] Med Request; Advice Allergies Active Allergy Reactions Severity Noted Date Comments Valsartan 07/10/2010 Enalapril 05/21/2006 Escitalopram Oxalate Nausea/vomiting 10/11/2009 Nauseated Iodinated Diagnostic Agents Nausea/vomiting 05/2010 IV Contrast Iodine Hives 12/18/2009 IV Contrast Metoprolol Tartrate 11/18/2006 Made pulse low [place] Oil-Black Currant-Vit E 07/10/2010 Verapamil 03/21/2004 Bupropion [...] Respimat 1.25 MCG/ACT Inhalation Aerosol Solution (Tiotropium [place] Monohydrate) Inhale by mouth 2 Puffs daily [...] mean 85%, <89% 6:18 hrs, SOERN 18.7 Refusing CPAP AHP Diverticulitis of colon [...] Hypoxemia 10/08/2011 10/30/2015 Genetic Sleep Disorder Research Other*[id number] 07/25/2011 05/15/2016 COPD, moderate 07/19/2011 07/28/2019 Overview: [...] mRNA, LNP-s, No Pre serve, 2-Dose Series (Gruvi) 08/21/2021,12/22/2020,2020 COVID-19, LNP-s, No Preserve , Tyler-sucrose, Ages 12+ (Pfizer) 04/16/2022 Hepatitis B, 20+ yrs 10/01/2017,04/21/2017,03/20 Pneumococcal Conjugate Vacc, 13 Valent (Prevnar) 03/28/2015 Pneumococcal Conjugate Vacci ne, 20-valent ([id number]) 04/01/2022 Pneumococcal Polysaccharide PPV23 (Pneumovax) 05/21/2006 Seasonal [...] Encounter - Sigrid Montano RN - 09/23/2022 1:23 PM EST See 09/23/22 Tele encounter. * Telephone Encounter - Marcela Pnito MD - 09/23/2022 12:42 PM EST See another encounter I sent to nurse briones and Sigrid returned case inspector. If patient feels she has a flare-up [...] Also Stephani is returning call to Joanna returned case inspector, however unable to transfer to her, so please advise Joanna that Stephani returned her call. CallbacK: [phone] * Telephone Encounter - Dodie [place] LPN [...] Office Visit Orthopedics Eliezer Gifford, DO 132 [facility] [place] [address] 09/30/2022 Office Visit Interventional Radiology Jerry Hernandez DO [address] [place] [address] 10/10/2022 Office Visit Internal Medicine Marcela Pinto MD 200 [place] [address] 10/29/2022 Nurse Only Ancillary Doran, Pre Surgical Covid Testing Connie [address] [place] [address] 10/31/2022 Hospital Encounter Dionte Snyder MD [address] [place], [place] [id number] 11/01/2022 Hospital Encounter Surgery Dionte Snyder MD [address] [place] [address] 11/01/2022 Surgery Surgery Dionte Snyder MD [address] [place] [address] LAPAROSCOPIC PARTIAL COLECTOMY WITH COLOPROCTOSTOMY 11/04/2022 Office Visit Hematology Oncology Ida Cueva CRNP [address] [place] [address] 11/08/2022 Scheduled Telephone General Surgery Colorectal, Nurse Follow Up Phone Call Schedule [address] [place], [place] [phone] 11/26/2022 Office Visit General Surgery Teresita Padron PA-C [address] [place] [address] 01/03/2023 Office Visit Cardiology Hammad Lopez DO [address] [place] [address] Scheduled Procedures Name Priority Associated [...] Additional history exists CKD PHOS USE SMARTSET 78155 08/05/202307/14, 02/19/2022, 03/09/2021, Additional history exists CKD HGB USE SMARTSET 72153 08/19/202308/19, 08/12/2022, 08/06/2022, Additional history exists O2 [...] daniel occurred with: Not Discussed Care Teams Hand I Thermal Cutter Relationship Specialty Start Date End Date Marcela Pinto MD 200 [place] [address] PCP - General Internal Medicine 08/04/14 documented as of this encounter
--- OUTSIDE RECORDS SUMMARY | 2023-06-18 02:34 | External Medical Summary | Summary of Care ---
Author Name Unknown Organization [place] [address] Care Team Providers Care Lay Out Inspector Name Role Phone Marcela Pinto MD Primary Care Provider + Reason for Visit * Reason Onset Date Comments Advice 09/17/2022 Pain med refill Encounter Details Date Type Department Care Team Description 09/17/2022 Telephone General Internal Medicine [facility] [place] [address] [facility] [place] [address] Marcela Pinto MD [address] [place] [place] [address] Advice (Pain med refill) Allergies Active Allergy Reactions Severity Noted Date Comments Valsartan 07/10/2010 Enalapril 05/21/2006 Escitalopram Oxalate Nausea/vomiting 10/11/2009 Nauseated Iodinated Diagnostic Agents Nausea/vomiting 05/2010 IV Contrast Iodine Hives 12/18/2009 IV Contrast Metoprolol Tartrate 11/18/2006 Made pulse low [place] Oil-Black Currant-Vit E 07/10/2010 Verapamil 03/21/2004 Bupropion [...] Respimat 1.25 MCG/ACT Inhalation Aerosol Solution (Tiotropium [place] Monohydrate) Inhale by mouth 2 Puffs daily [...] EVERY DAY 90 Tablet 3 2 Active Promethazine HCl 25 MG Oral Tablet (Phenergan)Indicati ons:Generalized osteoarthritis TAKE 1 TABLET BY MOUTH EVERY 6 HOURS NEEDED FOR NAUSEA 60 Tablet 2 2 Active Sertraline HCl 25 MG Oral [...] to be determined,COPD, moderate ([facility]) TAKE 1 PUFF BY MOUTH 4 TIMES [...] 09/26/20 22 Active metroNIDAZOLE 500 MG Oral TabletIndications:D iverticulitis of intestine with abscess, unspecified bleeding status, unspecified part of intestinal tract Take 1 Tablet (500 mg) by mouth in the morning and 1 Tablet (500 mg) at noon and 1 Tablet (500 mg) before bedtime. Do all this for 10 days. 30 Tablet 0 2 09/26/20 22 Active HYDROcodone-Acetami nophen 5-325 MG Oral TabletIndications:G eneralized osteoarthritis Take 1 Tablet by mouth every 6 hours as needed for Pain, Mild. 120 Tablet 0 2 Active HYDROcodone-Acetami nophen 5-325 MG Oral TabletIndications:G eneralized osteoarthritis Take by mouth 1 Tablet every 6 hours as needed for Pain, Mild. 120 Tablet 0 2 09/17/20 22 Discontinu ed(Refill) documented as of this encounter [...] Hypoxemia 10/08/2011 10/30/2015 Genetic Sleep Disorder Research Other*[id number] 07/25/2011 05/15/2016 COPD, moderate 07/19/2011 07/28/2019 Overview: [...] mRNA, LNP-s, No Pre serve, 2-Dose Series ([employer]) 08/21/2021,12/22/2020,2020 COVID-19, LNP-s, No Preserve , Tyler-sucrose, Ages 12+ (Pfizer) 04/16/2022 Hepatitis B, 20+ yrs 10/01/2017,04/21/2017,03/20 Pneumococcal Conjugate Vacc, 13 Valent (Prevnar) 03/28/2015 Pneumococcal Conjugate Vacci ne, 20-valent ([id number]) 04/01/2022 Pneumococcal Polysaccharide PPV23 (Pneumovax) 05/21/2006 Seasonal [...] Telephone Encounter - Bobbi Fitch LPN - 09/17/2022 3:59 PM EST Did you pend patient's preferred pharmacy and medication before forwarding?yes Pharmacy: [id number] [facility] Pending Prescriptions: Disp Refills HYDROcodone-Acetaminophen 5-325 MG Oral T*120 Ta*0 Sig: Take 1 Tablet by mouth every 6 hours as needed for Pain, Mild. Last Visit: 08/15/2022 (in office), 08/08/2020 (telemedicine) Next Visit: 10/10/2022 If no future appointments scheduled, and last appointment is greater than a year ago, please schedule patient for a follow-up appointment Last date the medication was ordered: 08/08/2022 Is this request for a controlled substance?Yes, What was the last refill date 08/08/2022 w/ quantity 120 and dosage 5-325mg and Urine Drug Screen Not completed Urine Drug Screen: Results for orders placed [...] 08/26/2019 02:55 PM * Telephone Encounter - JORDAN Chappell - 09/17/2022 2:49 PM EST Pt calling in to ask Dr. Pinto to refill the pain medication, hydrocodone. documented in this encounter Plan of Treatment Upcoming Encounters Date Type Specialty Care Team Description 09/24/2022 Office Visit Orthopedics Eliezer Gifford DO [address] [place] [address] 10/10/2022 Office Visit Internal Medicine Marcela Pinto MD [address] [place] [address] 10/29/2022 Nurse Only Ancillary Doran, Pre Surgical Covid Testing Connie [address] [place] [address] 10/31/2022 [facility] En[facility] [address] [facility] [place] [address] 11/01/2022 Hospital Encounter Surgery Dionte Snyder MD [address] [place] [address] 11/01/2022 Surgery Surgery Dionte Snyder MD [address] [place] [address] LAPAROSCOPIC PARTIAL COLECTOMY WITH COLOPROCTOSTOMY 11/04/2022 Office Visit Hematology Oncology Ida Cueva CRNP [address] [facility] [place] [address] 11/08/2022 Scheduled Telephone General Surgery Colorectal, Nurse Follow Up Phone Call Schedule [address] [place], [place] [id number] 11/26/2022 Office Visit General Surgery Teresita Padron PA-C [address] [place] [address] 01/03/2023 Office Visit Cardiology Hammad Lopez, DO [address] [place] [address] Scheduled Procedures Name Priority Associated [...] Additional history exists CKD PHOS USE SMARTSET 18810 08/05/202307/14, 02/19/2022, 03/09/2021, Additional history exists CKD HGB USE SMARTSET 63797 08/19/202308/19, 08/12/2022, 08/06/2022, Additional history exists O2 [...] daniel occurred with: Not Discussed Care Teams Lay Out Inspector Relationship Specialty Start Date End Date Marcela Pinto MD [address] [place] [place] [address] PCP - General Internal Medicine 08/04/14 documented as of this encounter
--- OUTSIDE RECORDS SUMMARY | 2023-06-18 02:34 | External Medical Summary | Summary of Care ---
Author Name Unknown Organization [place] [address] Care Team Providers Care Obedience Trainer Name Role Phone Marcela Pinto MD Primary Care Provider + Encounter Details Date Type Department Care Team Description 08/01/2022 Telephone Infectious Disease, [place] [address] [place] [address] Chavez Jarrell MD [address] [place] [address] Allergies Active Allergy Reactions Severity Noted Date Comments Valsartan 07/10/2010 Enalapril 05/21/2006 Escitalopram Oxalate Nausea/vomiting 10/11/2009 Nauseated Iodinated Diagnostic Agents Nausea/vomiting 05/2010 IV Contrast Iodine Hives 12/18/2009 IV Contrast Metoprolol Tartrate 11/18/2006 Made pulse low [place] Oil-Black Currant-Vit E 07/10/2010 Verapamil 03/21/2004 Bupropion Hcl 10/30/2009 Makes pt sick in the stomach documented as of this encounter (statuses as of 09/16/2022) Medications Medication Sig Dispensed Refills Start Date [...] 1.25 MCG/ACT Inhalation Aerosol Solution (Tiotropium [place] Monohydrate) Inhale by mouth 2 Puffs daily [...] DAY 90 Tablet 3 05/02/20 22 Active Promethazine HCl 25 MG Oral Tablet (Phenergan)Indicat ions:Generalized osteoarthritis TAKE 1 TABLET BY MOUTH EVERY 6 HOURS NEEDED FOR NAUSEA 60 Tablet 2 05/03/20 22 Active Sertraline HCl 25 MG Oral [...] day as needed for Constipation. 0 Active Klor-Con M20 20 MEQ Oral Tablet Extended Release (Potassium Chloride Annalisa ER)Indications:HTN , goal below 140/90 TAKE 1 TABLET BY MOUTH EVERY DAY 90 Tablet 3 09/28/20 21 022 Discontinued Metoprolol Succinate ER 25 MG Oral Tablet Extended Release 24 Hour (toPROL XL)Indications:Chr onic 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 135 Tablet 3 10/04/20 21 022 Discontinued Spironolactone 25 MG Oral Tablet (Aldactone) [...] 12 g 1 02/01/20 22 022 Discontinued Glimepiride 2 MG Oral Tablet (Amaryl) TAKE 1 TABLET BY MOUTH EVERY DAY WITH BREAKFAST 90 Tablet 1 02/08/20 22 022 Discontinued HYDROcodone-Acetam inophen 5-325 MG Oral TabletIndications: Generalized osteoarthritis Take by mouth 1 Tablet every 6 hours as needed for Pain, Mild. 120 Tablet 0 05/20/20 22 022 Discontinued(Re fill) Furosemide 40 MG Oral Tablet [...] 24 days. 24 g 0 07/29/20 22 022 documented as of this encounter (statuses as of 09/16/2022) Active Problems Problem Noted Date Protein-calorie malnutrition [...] as of this encounter (statuses as of 09/16/2022) Resolved Problems Problem Noted Date Resolved Date [...] Hypoxemia 10/08/2011 10/30/2015 Genetic Sleep Disorder Research Other*[id number] 07/25/2011 05/15/2016 COPD, moderate 07/19/2011 07/28/2019 Overview: [...] as of this encounter (statuses as of 09/16/2022) Immunizations Name Administration Dates Next Due COVID-19 mRNA, LNP-s, No Pre serve, 2-Dose Series ([employer]) 08/21/2021,12/22/2020,2020 COVID-19, LNP-s, No Preserve , Tyler-sucrose, Ages 12+ (Pfizer) 04/16/2022 Hepatitis B, 20+ yrs 10/01/2017,04/21/2017,03/20 Pneumococcal Conjugate Vacc, 13 Valent (Prevnar) 03/28/2015 Pneumococcal Conjugate Vacci ne, 20-valent ([id number]) 04/01/2022 Pneumococcal Polysaccharide PPV23 (Pneumovax) 05/21/2006 Seasonal [...] encounter Miscellaneous Notes * Telephone Encounter - Shelly Ott LPN - 09/16/2022 7:43 AM EST This has been answered by Dr. Quinones in an AAD. Shelly Ott LPN Nurse Navigator ID * Telephone Encounter - Shelly Ott LPN - 09/11/2022 7:[address] Sen, please review recent completed CT and advise on EOT plan and PICC line. Thank you Shelly Ott LPN Nurse Navigator ID * Telephone Encounter - Shelly Ott LPN - 08/22/2022 12:[address] scheduled for 09/09. * Telephone Encounter - Shelly Ott LPN - 08/01/2022 8:12 AM EDT Pt discharged to [facility] [phone] FINAL IMPRESSION AND RECOMMENDATIONS: Syndrome Intraabdominal infection Microbiology N/A Antibiotic Ertapenem Route IV Dose 1gram Frequency Daily End Date 08/22/22 Vascular access: Do not remove PICC line until the infectious disease physician approves Recommended followup imaging studies: Computed tomography (with options for abdomen/pelvis/chest/head/extremity) LABORATORY MONITORING: Lab Test Frequency End Date BMP CBC with diff Q week 08/22/22 PROVIDERS: Ordering ID Physician Following ID Physician ID clinic follow-up date Chavez Jarrell Darrell 2-4 weeks Total duration of therapy will depend on getting a follow-up CT of her abdomen near the 4 week ashutosh. ID will sign off for now. Please call with any questions or should her clinical course change. documented in this encounter Plan of Treatment Upcoming Encounters Date Type Specialty Care Team Description 09/24/2022 Office Visit Orthopedics Eliezer Gifford DO [address] [place] [address] 10/10/2022 Office Visit Internal Medicine Marcela Pinto MD [address] [facility] [place] [address] 10/29/2022 Nurse Only Ancillary Doran, Pre Surgical Covid Testing Connie [address] [place] [address] 10/31/2022 Hospital Encounter Dionte Snyder MD [address] [place] [address] 11/04/2022 Office Visit Hematology Oncology Ida Cueva CRNP [address] [place] [address] 11/08/2022 Scheduled Telephone General Surgery Colorectal, Nurse Follow Up Phone Call Schedule [address] [place] [address] 11/26/2022 Office Visit General Surgery Teresita Padron PA-C [address] [place] [place] [address] 01/03/2023 Office Visit Cardiology Hammad Lopez, [address] [facility] [place] [address] Health Maintenance Due Date Last Done Comments [...] Additional history exists CKD PHOS USE SMARTSET 72040 08/05/202307/14, 02/19/2022, 03/09/2021, Additional history exists CKD HGB USE SMARTSET 50466 08/19/202308/19, 08/12/2022, 08/06/2022, Additional history exists O2 [...] daniel occurred with: Not Discussed Care Teams Obedience Trainer Relationship Specialty Start Date End Date Marcela Pinto MD [address] [facility], [place] [address] PCP - General Internal Medicine 08/04/14 documented as of this encounter
--- OUTSIDE RECORDS SUMMARY | 2023-06-18 02:34 | External Medical Summary | Summary of Care ---
Author Name Unknown Organization [place] [address] Care Team Providers Care Manager Of Loss Prevention Operations Name Role Phone Marcela Pinto MD Primary Care Provider + Reason for Visit * Reason Comments eRx-Medication Refill Encounter Details Date Type Department Care Team Description 09/18/2022 Refill Cardiology, [facility] [address] [place] [address] Dulce Merino CRNP [address] [facility] [place] [address] Chronic 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); NICM (nonischemic cardiomyopathy) (HCC); Presence of Watchman left atrial appendage closure device Allergies Active Allergy Reactions Severity Noted Date Comments Valsartan 07/10/2010 Enalapril 05/21/2006 Escitalopram Oxalate Nausea/vomiting 10/11/2009 Nauseated Iodinated Diagnostic Agents Nausea/vomiting 05/2010 IV Contrast Iodine Hives 12/18/2009 IV Contrast Metoprolol Tartrate 11/18/2006 Made pulse low [place] Oil-Black Currant-Vit E 07/10/2010 Verapamil 03/21/2004 Bupropion [...] Respimat 1.25 MCG/ACT Inhalation Aerosol Solution (Tiotropium [place] Monohydrate) Inhale by mouth 2 Puffs daily [...] day as needed for Constipation. 0 Active HYDROcodone-Acetam inophen 5-325 MG Oral TabletIndications: Generalized osteoarthritis Take by mouth 1 Tablet every 6 hours as needed for Pain, Mild. 120 Tablet 0 2 Active Glimepiride 2 MG Oral Tablet (Amaryl) [...] 30 Tablet 0 2 09/26/20 22 Active Metoprolol Succinate ER 25 MG Oral Tablet Extended Release 24 Hour (toPROL XL)Indications:Chr onic 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),NICM (nonischemic cardiomyopathy) (HCC),Presence of Watchman left atrial appendage closure device TAKE 1/2 TABLET BY MOUTH EVERY DAY 45 Tablet 3 2 Active Metoprolol Succinate ER 25 MG Oral Tablet Extended Release 24 Hour (toPROL XL)Indications:Chr onic 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 135 Tablet 3 2 09/19/20 22 Discontinued documented as of this encounter [...] Hypoxemia 10/08/2011 10/30/2015 Genetic Sleep Disorder Research Other*[id number] 07/25/2011 05/15/2016 COPD, moderate 07/19/2011 07/28/2019 Overview: [...] mRNA, LNP-s, No Pre serve, 2-Dose Series ([employer]) 08/21/2021,12/22/2020,2020 COVID-19, LNP-s, No Preserve , Tyler-sucrose, Ages 12+ (Pfizer) 04/16/2022 Hepatitis B, 20+ yrs 10/01/2017,04/21/2017,03/20 Pneumococcal Conjugate Vacc, 13 Valent (Prevnar) 03/28/2015 Pneumococcal Conjugate Vacci ne, 20-valent ([id number]) 04/01/2022 Pneumococcal Polysaccharide PPV23 (Pneumovax) 05/21/2006 Seasonal [...] encounter Miscellaneous Notes * Telephone Encounter - Ant Daniel PA-C - 09/19/2022 8:09 AM EST Signed Prescriptions: Disp Refills Metoprolol Succinate ER 25 MG Oral Tablet *45 Tab*3 Sig: TAKE 1/2 TABLET BY MOUTH EVERY DAY Authorizing Provider: ANT DANIEL * Telephone Encounter - Darren Mejia RN - 09/19/2022 7:29 AM ESTPending Prescriptions: Disp Refills Metoprolol Succinate ER 25 MG Oral Tablet *45 Tab*3 Sig: TAKE 1/2 TABLET BY MOUTH EVERY DAY * Telephone Encounter - Darren Mejia RN - 09/19/2022 7:28 AM EST Pending Prescriptions: Disp Refills Metoprolol Succinate ER 25 MG Oral Tablet*45 Tab*3 Sig: TAKE 1/2 TABLET BY MOUTH EVERY DAY Last Visit: 07/15/2022 (in office), Visit date not found (telemedicine) Next Visit: 01/03/2023 Last medication order date: 08/09/2022 Have you choosen a preferred pharm?? yes Patient Active Problem List Diagnosis Code Asthma [...] A1c goal of less than 7.5% ([facility]) E11.9 Elevated plasma metanephrines R79.89 Irritable bowel syndrome with constipation K58.1 HECTOR (generalized anxiety disorder) F41.1 COPD, group B, 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 ([facility]) J44.9 Morbid obesity with BMI of 40.0-44.9, adult ([facility]) E66.01, Z68.41 Gastro-esophageal reflux disease without esophagitis K21.9 Paroxysmal atrial fibrillation ([facility]) I48.0 Chronic systolic heart failure ([facility]) I50.22 Pulmonary HTN ([facility]) I27.20 Chronic hypoxemic respiratory failure ([facility]) J96.11 Chronic kidney disease, stage 3a ([facility]) N18.31 Subclinical hyperthyroidism E05.90 History of ESBL E. coli infection Z86.19 Type 2 diabetes mellitus with stage 3a chronic kidney disease, without long- term current use ofinsulin ([facility]) E11.22, N18.31 Gastroparesis K31.84 Ischemic colitis ([facility]) K55.9 Asthma, mild persistent J45.30 Diverticulitis of intestine with abscess K57.80 Protein-calorie malnutrition ([facility]) E46 Labs: Lab Results Component [...] Orthopedics Eliezer Gifford DO [address] [place] [address] 10/10/2022 Office Visit Internal Medicine Marcela Pinto MD [address] [place] [address] 10/29/2022 Nurse Only Ancillary Doran, Pre Surgical Covid Testing Connie [address] [place] [address] 10/31/2022 Hospital Encounter Dionte Snyder MD [address] [place] [address] 11/01/2022 Hospital Encounter Surgery Dionte Snyder MD [address] [place] [address] 11/01/2022 Surgery Surgery Dionte Snyder MD [address] [place] [address] LAPAROSCOPIC PARTIAL COLECTOMY WITH COLOPROCTOSTOMY 11/04/2022 Office Visit Hematology Oncology Ida Cueva CRNP [address] [facility] [place] [address] 11/08/2022 Scheduled Telephone General Surgery Colorectal, Nurse Follow Up Phone Call Schedule [address] [place] [facility] [address] 11/26/2022 Office Visit General Surgery Teresita Padron PA-C [address] [place] [facility] [place] [address] 01/03/2023 Office Visit Cardiology Hammad Lopez O, DO [address] [facility] [place] [address] Scheduled Procedures Name Priority Associated Diagnoses Date/Ti [...] Additional history exists CKD PHOS USE SMARTSET 80771 08/05/202307/14, 02/19/2022, 03/09/2021, Additional history exists CKD HGB USE SMARTSET 12220 08/19/202308/19, 08/12/2022, 08/06/2022, Additional history exists O2 [...] of Watchman left atrial appendage closure device Colovesical fistula Intestinovesical fistula documented in this [...] daniel occurred with: Not Discussed Care Teams Manager Of Loss Prevention Operations Relationship Specialty Start Date End Date Marcela Pinto MD [address] [place] [address], [place] [address] PCP - General Internal Medicine 08/04/14 documented as of this encounter
--- OUTSIDE RECORDS SUMMARY | 2023-06-18 02:34 | External Medical Summary | Summary of Care ---
Author Name Unknown Organization [place] [address] Care Team Providers Care Middle School Band Teacher Name Role Phone Marcela Pinto MD Primary Care Provider + Reason for Visit * Reason Comments case management Encounter Details Date Type Department Care Team Description 09/19/2022 Translator Deaf Care Coordination [address] [place] [address] Joanna Smith, RN Medical home patient encounter* Allergies Active Allergy Reactions Severity Noted Date Comments Valsartan 07/10/2010 Enalapril 05/21/2006 Escitalopram Oxalate Nausea/vomiting 10/11/2009 Nauseated Iodinated Diagnostic Agents Nausea/vomiting 05/2010 IV Contrast Iodine Hives 12/18/2009 IV Contrast Metoprolol Tartrate 11/18/2006 Made pulse low [place] Oil-Black Currant-Vit E 07/10/2010 Verapamil 03/21/2004 Bupropion [...] Inhalation Aerosol Solution (Tiotropium [place] Monohydrate) Inhale by mouth 2 Puffs daily [...] Hypoxemia 10/08/2011 10/30/2015 Genetic Sleep Disorder Research Other*[id number] 07/25/2011 05/15/2016 COPD, moderate 07/19/2011 07/28/2019 Overview: [...] mRNA, LNP-s, No Pre serve, 2-Dose Series ([employer]) 08/21/2021,12/22/2020,2020 COVID-19, LNP-s, No Preserve , Tyler-sucrose, Ages 12+ (Pfizer) 04/16/2022 Hepatitis B, 20+ yrs 10/01/2017,04/21/2017,03/20 Pneumococcal Conjugate Vacc, 13 Valent (Prevnar) 03/28/2015 Pneumococcal Conjugate Vacci ne, 20-valent ([id number]) 04/01/2022 Pneumococcal Polysaccharide PPV23 (Pneumovax) 05/21/2006 Seasonal [...] Progress Notes * Joanna Smith RN - 09/19/2022 9:58 AM EST 1. Follow-up Routine 2. Attempted Phone Call First Attempt 3. Call Unanswered Left Voicemail 4. Plan To attempt Follow-up documented in this encounter Plan of Treatment Upcoming Encounters Date Type Specialty Care Team Description 09/24/2022 Office Visit Orthopedics Eliezer Gifford, [address] [place] [address] 10/10/2022 Office Visit Internal Medicine Marcela Pinto MD [address] [place], [place] [address] 10/29/2022 Nurse Only Ancillary Doran, Pre Surgical Covid Testing Connie [address] [place] [address] 10/31/2022 Hospital Encounter Dionte Snyder MD [address] [place] [address] 11/01/2022 Hospital Encounter Surgery Dionte Snyder MD [address] [place] [address] 11/01/2022 Surgery Surgery Dionte Snyder MD [address] [place] [address] LAPAROSCOPIC PARTIAL COLECTOMY WITH COLOPROCTOSTOMY 11/04/2022 Office Visit Hematology Oncology Ida Cueva CRNP [address] [place] [address] 11/08/2022 Scheduled Telephone General Surgery Colorectal, Nurse Follow Up Phone Call Schedule [address] [place] [facility] [place] [address] 11/26/2022 Office Visit General Surgery Teresita Padron PA-C [address] [place] [facility] [place] [address] 01/03/2023 Office Visit Cardiology Hammad Lopez DO [address] [place], [place] [phone] Scheduled Procedures Name Priority Associated Diagnoses Date/Ti [...] Additional history exists CKD PHOS USE SMARTSET 18499 08/05/202307/14, 02/19/2022, 03/09/2021, Additional history exists CKD HGB USE SMARTSET 16202 08/19/202308/19, 08/12/2022, 08/06/2022, Additional history exists O2 [...] daniel occurred with: Not Discussed Care Teams Middle School Band Teacher Relationship Specialty Start Date End Date Marcela Pinto MD [address] [place] [address] PCP - General Internal Medicine 08/04/14 documented as of this encounter
--- OUTSIDE RECORDS SUMMARY | 2023-06-18 02:34 | External Medical Summary | Summary of Care ---
Author Name Unknown [place] [address] Care Team Providers Care Concaver Name Role Phone Marcela Pinto MD Primary Care Provider + Reason for Visit * Reason Onset Date Comments FYI 09/16/2022 Drain removal Encounter Details Date Type Department Care Team Description 09/16/2022 Telephone Interventional Radiology, [facility] [address] [place] [address] Jerry Hernandez [address] [place] [address], [place] [id number] FYI (Drain removal ) Allergies Active Allergy Reactions Severity Noted Date Comments Valsartan 07/10/2010 Enalapril 05/21/2006 Escitalopram Oxalate Nausea/vomiting 10/11/2009 Nauseated Iodinated Diagnostic Agents Nausea/vomiting 05/2010 IV Contrast Iodine Hives 12/18/2009 IV Contrast Metoprolol Tartrate 11/18/2006 Made pulse low [place] Oil-Black Currant-Vit E 07/10/2010 Verapamil 03/21/2004 Bupropion [...] Respimat 1.25 MCG/ACT Inhalation Aerosol Solution (Tiotropium [place] Monohydrate) Inhale by mouth 2 Puffs daily [...] Oral Capsule Delayed Release (PriLOSEC)Indication s:Ischemic colitis ([facility]) TAKE 1 [...] day as needed for Constipation. 0 Active HYDROcodone-Acetamin ophen 5-325 MG Oral TabletIndications:Ge neralized osteoarthritis Take by mouth 1 Tablet every 6 hours as needed for Pain, Mild. 120 Tablet 0 08/08/2022 Active Glimepiride 2 MG Oral Tablet (Amaryl) TAKE 1 TABLET BY MOUTH EVERY DAY WITH BREAKFAST 90 Tablet 1 08/09/2022 Active Metoprolol Succinate ER 25 MG Oral Tablet Extended Release 24 Hour (toPROL XL)Indications:Chron ic 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 ([facility]),NICM (nonischemic cardiomyopathy) ([facility]),Presence of Watchman left atrial appendage closure device TAKE 1 TAB IN THE MORNING AND 1/2 TAB IN THE EVENING. 135 Tablet 3 08/09/2022 Active Magnesium Chloride 64 MG Oral [...] :Asthma with severity to be determined,COPD, moderate ([facility] [...] days. 30 Tablet 0 09/16/2022 2 Active documented as of this encounter (statuses [...] Hypoxemia 10/08/2011 10/30/2015 Genetic Sleep Disorder Research Other*[id number] 07/25/2011 05/15/2016 COPD, moderate 07/19/2011 07/28/2019 Overview: [...] mRNA, LNP-s, No Pre serve, 2-Dose Series ([employer]x) 08/21/2021,12/22/2020,2020 COVID-19, LNP-s, No Preserve , Tyler-sucrose, Ages 12+ (Pfizer) 04/16/2022 Hepatitis B, 20+ yrs 10/01/2017,04/21/2017,03/20 Pneumococcal Conjugate Vacc, 13 Valent (Prevnar) 03/28/2015 Pneumococcal Conjugate Vacci ne, 20-valent ([id number]) 04/01/2022 Pneumococcal Polysaccharide PPV23 (Pneumovax) 05/21/2006 Seasonal [...] encounter Miscellaneous Notes * Telephone Encounter - Tamar Smiley LPN - 09/16/2022 2:44 PM EST Pts daughter Stephani, whom verified patient name and is calling to make an appointment for a drain removal. Patient had drain inserted by Dr. Hernandez from IR on 07/25/22 Information given to the patient to call Dr. Hernandez at IR dept [phone] to schedule appt for drain removal. documented in this encounter Plan of Treatment Upcoming Encounters Date Type Specialty Care Team Description 09/24/2022 Office Visit Orthopedics Eliezer Gifford, DO [address] [facility] [place] [address] 10/10/2022 Office Visit Internal Medicine Marcela Pinto MD [address] [place] [address] 10/29/2022 Nurse Only Ancillary Doran, Pre Surgical Covid Testing Connie [address] [place] [address] 10/31/2022 Hospital Encounter Dionte Snyder MD [address] [place], [place] [phone] 11/04/2022 Office Visit Hematology Oncology Ida Cueva CRNP 400 [facility] [place] [address] 11/08/2022 Scheduled Telephone General Surgery Colorectal, Nurse Follow Up Phone Call Schedule [address] [place] [facility] [place] [address] 11/26/2022 Office Visit General Surgery Teresita Padron PA-C [address] [facility] [place] [address] 01/03/2023 Office Visit Cardiology Hammda Lopez, DO [address] [place] [address] Health Maintenance Due Date Last Done Comments [...] Additional history exists CKD PHOS USE SMARTSET 17625 08/05/202307/14, 02/19/2022, 03/09/2021, Additional history exists CKD HGB USE SMARTSET 78932 08/19/202308/19, 08/12/2022, 08/06/2022, Additional history exists O2 [...] daniel occurred with: Not Discussed Care Teams Concaver Relationship Specialty Start Date End Date Marcela Pinto MD [address] [place] [address] PCP - General Internal Medicine 08/04/14 documented as of this encounter
--- OUTSIDE RECORDS SUMMARY | 2023-06-18 02:34 | External Medical Summary | Summary of Care ---
Author Name Unknown Organization [place] [address] Care Team Providers Care Photography Instructor Name Role Phone Marcela Pinto MD Primary Care Provider + Reason for Visit * Reason Comments case management Encounter Details Date Type Department Care Team Description 09/19/2022 [employer] Police Officer Care Coordination [address] [place] [address] Joanna Smith, RN Medical home patient encounter* Allergies Active Allergy Reactions Severity Noted Date Comments Valsartan 07/10/2010 Enalapril 05/21/2006 Escitalopram Oxalate Nausea/vomiting 10/11/2009 Nauseated Iodinated Diagnostic Agents Nausea/vomiting 05/2010 IV Contrast Iodine Hives 12/18/2009 IV Contrast Metoprolol Tartrate 11/18/2006 Made pulse low [place] Oil-Black Currant-Vit E 07/10/2010 Verapamil 03/21/2004 Bupropion [...] Respimat 1.25 MCG/ACT Inhalation Aerosol Solution (Tiotropium [place] Monohydrate) Inhale by mouth 2 Puffs daily [...] Hypoxemia 10/08/2011 10/30/2015 Genetic Sleep Disorder Research Other*[id number] 07/25/2011 05/15/2016 COPD, moderate 07/19/2011 07/28/2019 Overview: [...] mRNA, LNP-s, No Pre serve, 2-Dose Series ([employer]) 08/21/2021,12/22/2020,2020 COVID-19, LNP-s, No Preserve , Tyler-sucrose, Ages 12+ (Pfizer) 04/16/2022 Hepatitis B, 20+ yrs 10/01/2017,04/21/2017,03/20 Pneumococcal Conjugate Vacc, 13 Valent (Prevnar) 03/28/2015 Pneumococcal Conjugate Vacci ne, 20-valent ([id number]) 04/01/2022 Pneumococcal Polysaccharide PPV23 (Pneumovax) 05/21/2006 Seasonal [...] Gifford, [address] [place] [address] 10/10/2022 Office Visit Internal Medicine Marcela Pinto MD [address] [place], [place] [phone] 10/29/2022 Nurse Only Ancillary Doran, Pre Surgical Covid Testing Connie [address] [place] [address] 10/31/2022 Hospital Encounter Dionte Snyder MD [address] [place] [address] 11/01/2022 Hospital Encounter Surgery Dionte Snyder MD [address] [place] [address] 11/01/2022 Surgery Surgery Dionte Snyder MD [address] [place] [address] LAPAROSCOPIC PARTIAL COLECTOMY WITH COLOPROCTOSTOMY 11/04/2022 Office Visit Hematology Oncology Ida Cueva CRNP [address] [place] [address] 11/08/2022 Scheduled Telephone General Surgery Colorectal, Nurse Follow Up Phone Call Schedule [address] [facility] [place] [address] 11/26/2022 Office Visit General Surgery Teresita Padron PA-C [address] [place] [address] 01/03/2023 Office Visit Cardiology Hammad Lopez DO [address] [place], [place] [phone] Scheduled Procedures Name Priority Associated Diagnoses Date/Ti [...] Additional history exists CKD PHOS USE SMARTSET 89068 08/05/202307/14, 02/19/2022, 03/09/2021, Additional history exists CKD HGB USE SMARTSET 35927 08/19/202308/19, 08/12/2022, 08/06/2022, Additional history exists O2 [...] daniel occurred with: Not Discussed Care Teams Photography Instructor Relationship Specialty Start Date End Date Marcela Pinto MD [address] [facility] [place] [address] PCP - General Internal Medicine 08/04/14 documented as of this encounter
--- OUTSIDE RECORDS SUMMARY | 2023-06-18 02:34 | External Medical Summary | Summary of Care ---
Author Name Unknown Organization [place] [address] Care Team Providers Care Latex Thread Machine Operator Name Role Phone Marcela Pinto MD Primary Care Provider + Reason for Visit * Reason Onset Date Comments Home Health 09/11/2022 Order to remove PICC line Encounter Details Date Type Department Care Team Description 09/11/2022 Telephone General Internal Medicine [facility] [address] [place] [address] Marcela Pinto MD 200 [place] [address] Home Health (Order to remove PICC line ) Allergies Active Allergy Reactions Severity Noted Date Comments Valsartan 07/10/2010 Enalapril 05/21/2006 Escitalopram Oxalate Nausea/vomiting 10/11/2009 Nauseated Iodinated Diagnostic Agents Nausea/vomiting 05/2010 IV Contrast Iodine Hives 12/18/2009 IV Contrast Metoprolol Tartrate 11/18/2006 Made pulse low [place] Oil-Black Currant-Vit E 07/10/2010 Verapamil 03/21/2004 Bupropion [...] Respimat 1.25 MCG/ACT Inhalation Aerosol Solution (Tiotropium [place] Monohydrate) Inhale by mouth 2 Puffs daily [...] single episode, in partial remission ([facility]),HECTOR (generalized anxiety disorder) TAKE 1 TABLET BY MOUTH EVERY DAY IN THE MORNING 90 Tablet 1 06/12/2022 Active Omeprazole 20 MG Oral Capsule Delayed Release (PriLOSEC)Indication s:Ischemic colitis ([facility]) TAKE 1 CAPSULE BY MOUTH TWICE A [...] with reduced ejection fraction and diastolic dysfunction ([facility]),NICM (nonischemic cardiomyopathy) ([facility]),Presence of Watchman left atrial appendage closure [...] :Asthma with severity to be determined,COPD, moderate ([facility]) TAKE 1 PUFF BY MOUTH 4 TIMES A DAY 12 g 1 09/10/2022 Active Furosemide 40 MG Oral Tablet (Lasix) Take 1 Tablet (40 mg) by mouth in the morning and 1 Tablet (40 mg) before bedtime. 180 Tablet 3 09/11/2022 Active Ciprofloxacin HCl 500 MG Oral Tablet [...] Hypoxemia 10/08/2011 10/30/2015 Genetic Sleep Disorder Research Other*[id number] 07/25/2011 05/15/2016 COPD, moderate 07/19/2011 07/28/2019 Overview: [...] mRNA, LNP-s, No Pre serve, 2-Dose Series ([employer]) 08/21/2021,12/22/2020,2020 COVID-19, LNP-s, No Preserve , [place]-sucrose, Ages 12+ (Pfizer) 04/16/2022 Hepatitis B, 20+ yrs 10/01/2017,04/21/2017,03/20 Pneumococcal Conjugate Vacc, 13 Valent (Prevnar) 03/28/2015 Pneumococcal Conjugate Vacci ne, 20-valent ([id number]) 04/01/2022 Pneumococcal Polysaccharide PPV23 (Pneumovax) 05/21/2006 Seasonal [...] Telephone Encounter - Marcela Pinto MD - 09/16/2022 11:20 AM EST See another encounter. Ab sent if needs to use. * Telephone Encounter - Angelina Linder LPN - 09/13/2022 12:18 PM EST Ashley did remove the PICC. Mirlande Morris RN from Dr nSyder's office contacted [facility] on 09/11 trino faxed his office visit notes that said: She was recently admitted 07/25-07/29/2022 at [facility] [place] complicated divert[place] and treated medically with IV Abx (ertapenem). IR drain in place from previous admission for drainage of ovarian cyst. PICC line in place, finished her course of Abx 1 week ago. Home health RN to remove. Mirlande documented below. * Telephone Encounter - Marcela Pinto MD - 09/13/2022 10:49 AM EST Sure. Thanks for the info Angelina. So did they remove the PICC line without the order from the provider? * Telephone Encounter - Angelina Linder LPN - 09/13/2022 10:25 AM EST Contacted Lonny , spoke with Adrianna. Informed that [facility] and is awaiting an answer regarding patients CT scan results. When Adrianna pulled the PICC line yesterday, patient was feeling well. Afebrile. No complaints of pain. Vitals were good. If the PICC line needs placed again, orders would need to go to [facility] and she would need to have PICC line placed. Lonny can only do the dressing changes. * Telephone Encounter - Marcela Pinto MD - 09/13/2022 9:50 AM EST See the encounter I just sent this morning. Awaiting the response from ID if they can review the recent scan and let us know whether the PICC line can be removed or not as they wanted to make sure weget their input before removing the PICC line. Recent CT still shows signs of infection in the formof possible abscess and still have acute diverticulitis. Need to find out how patient is doing clinically. * Telephone Encounter - Mirlande Morris RN - 09/11/2022 3:27 PM EST Spoke with staff at [facility]. Cn accept physician notes stating PICC line can be removed.provided their fax number and faxed notes. * Telephone Encounter - Angelina Linder LPN - 09/11/2022 2:00 PM EST Spoke with Yoly RN from [facility]. Asking if picc line could be removed? Patient will be out of heparin tomorrow. [facility] needs to know if the PICC line can be removed orif patient needs more heparin to keep the PICC line in place. Informed Yoly of Dr Snyder's office note that says: She was recently admitted 07/25-07/29/2022 [place] [facility] [place] complicated divert[place] and treated medically with IV Abx (ertapenem). IR drain in place from previous admission for drainage of ovarian cyst. PICC line in place, finished her course of Abx 1 week ago. Home health RN to remove. Yoly states that it needs to be an order or documented in an encounter. [facility] needs contacted at [phone]. PCP and/or Dr Snyder can you please advise. * Telephone Encounter - JORDAN Powers - 09/11/2022 1:57 PM EST Reason for patient's call: yoly/Lonny Caller was transferred to [facility] at the nurse line. documented in this encounter Plan of Treatment Upcoming Encounters Date Type Specialty Care Team Description 09/24/2022 Office Visit Orthopedics Eliezer Gifford, DO [address] [facility] [place] [address] 10/10/2022 Office Visit Internal Medicine Marcela Pinto MD [address] [place] [address] 10/29/2022 Nurse Only Ancillary Doran, Pre Surgical Covid Testing Connie [address] [place] [address] 10/31/2022 Hospital Encounter Dionte Snyder MD [address] [place], [place] [phone] 11/04/2022 Office Visit Hematology Oncology Ida Cueva CRNP [address] [place] [address] 11/08/2022 Scheduled Telephone General Surgery Colorectal, Nurse Follow Up Phone Call Schedule [address] [place] [address] 11/26/2022 Office Visit General Surgery Teresita Padron PA-C [address] [place] [address] 01/03/2023 Office Visit Cardiology Hammad Lopez DO [address] [place] [address] Health Maintenance Due Date Last Done [...] Additional history exists CKD PHOS USE SMARTSET 06983 08/05/202307/14, 02/19/2022, 03/09/2021, Additional history exists CKD HGB USE SMARTSET 28280 08/19/202308/19, 08/12/2022, 08/06/2022, Additional history exists O2 [...] this encounter Visit Diagnoses Diagnosis Diverticulitis of intestine with abscess, unspecified bleeding status, unspecified part of intestinal tract- Primary documented in this encounter Advance Directives [...] daniel occurred with: Not Discussed Care Teams Latex Thread Machine Operator Relationship Specialty Start Date End Date Marcela Pinto MD [address] [facility] [address] PCP - General Internal Medicine 08/04/14 documented as of this encounter
--- OUTSIDE RECORDS SUMMARY | 2023-06-18 02:34 | External Medical Summary | Summary of Care ---
Author Name Unknown Organization [place] [address] Care Team Providers Care Shovel Engineer Name Role Phone Marcela Pinto MD Primary Care Provider + Reason for Visit * Reason Onset Date Comments Home Health 09/11/2022 Order to remove PICC line Encounter Details Date Type Department Care Team Description 09/11/2022 Telephone General Internal Medicine [facility] [place] [address] [place] [address] Marcela Pinto MD 200 [place] [address] Home Health (Order to remove PICC line ) Allergies Active Allergy Reactions Severity Noted Date Comments Valsartan 07/10/2010 Enalapril 05/21/2006 Escitalopram Oxalate Nausea/vomiting 10/11/2009 Nauseated Iodinated Diagnostic Agents Nausea/vomiting 05/2010 IV Contrast Iodine Hives 12/18/2009 IV Contrast Metoprolol Tartrate 11/18/2006 Made pulse low [place] Oil-Black Currant-Vit E 07/10/2010 Verapamil 03/21/2004 Bupropion [...] Respimat 1.25 MCG/ACT Inhalation Aerosol Solution (Tiotropium [place] Monohydrate) Inhale by mouth 2 Puffs daily [...] single episode, in partial remission ([facility]),HECTOR (generalized anxiety disorder) TAKE 1 TABLET BY MOUTH EVERY DAY IN THE MORNING 90 Tablet 1 06/12/2022 Active Omeprazole 20 MG Oral Capsule Delayed Release (PriLOSEC)Indication s:Ischemic colitis ([facility]) TAKE 1 CAPSULE BY MOUTH TWICE [...] with reduced ejection fraction and diastolic dysfunction ([facility]),NICM (nonischemic cardiomyopathy) ([facility]),Presence of Watchman left atrial appendage [...] :Asthma with severity to be determined,COPD, moderate ([facility]) TAKE 1 PUFF BY MOUTH [...] Hypoxemia 10/08/2011 10/30/2015 Genetic Sleep Disorder Research Other*[id number] 07/25/2011 05/15/2016 COPD, moderate 07/19/2011 07/28/2019 Overview: [...] mRNA, LNP-s, No Pre serve, 2-Dose Series ([employer]) 08/21/2021,12/22/2020,2020 COVID-19, LNP-s, No Preserve , Tyler-sucrose, Ages 12+ (Pfizer) 04/16/2022 Hepatitis B, 20+ yrs 10/01/2017,04/21/2017,03/20 Pneumococcal Conjugate Vacc, 13 Valent (Prevnar) 03/28/2015 Pneumococcal Conjugate Vacci ne, 20-valent ([id number]) 04/01/2022 Pneumococcal Polysaccharide PPV23 (Pneumovax) 05/21/2006 Seasonal [...] the PICC. Mirlande Morris RN from Dr Snyder's office contacted [facility] on 09/11 trino faxed his office visit notes that said: She was recently admitted 07/25-07/29/2022 at [facility] for complicated diverticulitis and treated medically with [...] again, orders would need to go to [facility] and she would need to have PICC [...] 3:27 PM EST Spoke with staff at [facility]. Cn accept physician notes stating PICC line can be removed.provided their fax number and faxed notes. * Telephone Encounter - Angelina Linder LPN - 09/11/2022 2:00 PM EST Spoke with Yoly RN from [facility]. Asking if picc line could be removed? Patient will be out of heparin tomorrow. [facility] needs to know if the PICC line can be removed orif patient needs more heparin to keep the PICC line in place. Informed Yoly of Dr Snyder's office note that says: She was recently admitted 07/25-07/29/2022 at [facility] for complicated diverticulitis and treated medically with IV Abx (ertapenem). IR drain in place from previous admission for drainage of ovarian cyst. PICC line in place, finished her course of Abx 1 week ago. Home health RN to remove. Yoly states that it needs to be an order or documented in an encounter. [facility] needs contacted at [phone]. PCP and/or Dr Snyder can you please advise. * Telephone Encounter - JORDAN Powers - 09/11/2022 1:57 PM EST Reason for patient's call: yoly/Lonny Caller was transferred to [facility] at the nurse line. documented in this encounter Plan of Treatment Upcoming Encounters Date Type Specialty Care Team Description 09/24/2022 Office Visit Orthopedics Eliezer Gifford, DO [address] [facility] [place] [address] 10/10/2022 Office Visit Internal Medicine Marcela Pinto MD [address] [place] [address] 10/29/2022 Nurse Only Ancillary Doran, Pre Surgical Covid Testing Connie [address] [place] [address] 10/31/2022 Hospital Encounter Dionte Snyder MD [address] [place], [place] [address] 11/04/2022 Office Visit Hematology Oncology Ida Cueva CRNP [address] [place] [address] 11/08/2022 Scheduled Telephone General Surgery Colorectal, Nurse Follow Up Phone Call Schedule [address] [place] [address] 11/26/2022 Office Visit General Surgery Teresita Padron PA-C [address] [place] [address] 01/03/2023 Office Visit Cardiology Hammad [...] Additional history exists CKD PHOS USE SMARTSET 89448 08/05/202307/14, 02/19/2022, 03/09/2021, Additional history exists CKD HGB USE SMARTSET 82771 08/19/202308/19, 08/12/2022, 08/06/2022, Additional history exists O2 [...] daniel occurred with: Not Discussed Care Teams Shovel Engineer Relationship Specialty Start Date End Date Marcela Pinto MD [address] [facility] [place] [address] PCP - General Internal Medicine 08/04/14 documented as of this encounter
--- OUTSIDE RECORDS SUMMARY | 2023-06-18 02:34 | External Medical Summary | Summary of Care ---
Author Name Unknown Organization [place] [address] Care Team Providers Care Tire Design Engineer Name Role Phone Marcela Pinto MD Primary Care Provider + Reason for Visit * Reason Onset Date Comments Med Request 09/19/2022 Advice 09/19/2022 Encounter Details Date Type Department Care Team Description 09/19/2022 Telephone General Internal Medicine [facility] [address] [place] [address] Marcela Pinto MD [address] [place] [address] Med Request; Advice Allergies Active Allergy Reactions Severity Noted Date Comments Valsartan 07/10/2010 Enalapril 05/21/2006 Escitalopram Oxalate Nausea/vomiting 10/11/2009 Nauseated Iodinated Diagnostic Agents Nausea/vomiting 05/2010 IV Contrast Iodine Hives 12/18/2009 IV Contrast Metoprolol Tartrate 11/18/2006 Made pulse low [place] Oil-Black Currant-Vit E 07/10/2010 Verapamil 03/21/2004 Bupropion [...] Respimat 1.25 MCG/ACT Inhalation Aerosol Solution (Tiotropium [place] Monohydrate) Inhale by mouth 2 Puffs daily [...] severity to be determined,COPD, moderate ([facility]) TAKE 1 PUFF BY MOUTH [...] Hypoxemia 10/08/2011 10/30/2015 Genetic Sleep Disorder Research Other*[id number] 07/25/2011 05/15/2016 COPD, moderate 07/19/2011 07/28/2019 Overview: [...] mRNA, LNP-s, No Pre serve, 2-Dose Series ([employer]) 08/21/2021,12/22/2020,2020 COVID-19, LNP-s, No Preserve , Tyler-sucrose, Ages 12+ (Pfizer) 04/16/2022 Hepatitis B, 20+ yrs 10/01/2017,04/21/2017,03/20 Pneumococcal Conjugate Vacc, 13 Valent (Prevnar) 03/28/2015 Pneumococcal Conjugate Vacci ne, 20-valent ([id number]) 04/01/2022 Pneumococcal Polysaccharide PPV23 (Pneumovax) 05/21/2006 Seasonal [...] encounter Miscellaneous Notes * Telephone Encounter - Dodie Carson LPN [...] Gifford, [address] [place] [address] 10/10/2022 Office Visit Internal Medicine Marcela Pinto MD [address] [place] [address] 10/29/2022 Nurse Only Ancillary Doran, Pre Surgical Covid Testing Connie [address] [place] [address] 10/31/2022 Hospital Encounter Dionte Snyder MD [address] [place] [address] 11/01/2022 Hospital Encounter Surgery Dionte Snyder MD [address] [place] [address] 11/01/2022 Surgery Surgery Dionte Snyder MD [address] [place] [address] LAPAROSCOPIC PARTIAL COLECTOMY WITH COLOPROCTOSTOMY 11/04/2022 Office Visit Hematology Oncology Ida Cueva CRNP 400 [facility] [place] [phone] 11/08/2022 Scheduled Telephone General Surgery Colorectal, Nurse Follow Up Phone Call Schedule [address] [place] [address] 11/26/2022 Office Visit General Surgery Teresita Padron PA-C [address] [place] [address] 01/03/2023 Office Visit Cardiology Hammad Lopez O, DO [address] [place] [address] Scheduled Procedures Name Priority Associated Diagnoses Date/Ti [...] Additional history exists CKD PHOS USE SMARTSET 16004 08/05/202307/14, 02/19/2022, 03/09/2021, Additional history exists CKD HGB USE SMARTSET 29817 08/19/202308/19, 08/12/2022, 08/06/2022, Additional history exists O2 [...] daniel occurred with: Not Discussed Care Teams Tire Design Engineer Relationship Specialty Start Date End Date Marcela Pinto MD 200 [facility] [place] [address] PCP - General Internal Medicine 08/04/14 documented as of this encounter
--- OUTSIDE RECORDS SUMMARY | 2023-06-18 02:34 | External Medical Summary | Summary of Care ---
Author Name Unknown Organization [place] [address] Care Team Providers Care Coal Conveyor Operator Name Role Phone Marcela Pinto MD Primary Care Provider + Reason for Visit * Reason Onset Date Comments Med Request 09/19/2022 Advice 09/19/2022 Encounter Details Date Type Department Care Team Description 09/19/2022 Telephone General Internal Medicine [facility] [address] [place] [address] Marcela Pinto MD [address] [place] [address] Med Request; Advice Allergies Active Allergy Reactions Severity Noted Date Comments Valsartan 07/10/2010 Enalapril 05/21/2006 Escitalopram Oxalate Nausea/vomiting 10/11/2009 Nauseated Iodinated Diagnostic Agents Nausea/vomiting 05/2010 IV Contrast Iodine Hives 12/18/2009 IV Contrast Metoprolol Tartrate 11/18/2006 Made pulse low [place] Oil-Black Currant-Vit E 07/10/2010 Verapamil 03/21/2004 Bupropion [...] Respimat 1.25 MCG/ACT Inhalation Aerosol Solution (Tiotropium [place] Monohydrate) Inhale by mouth 2 Puffs daily [...] Hypoxemia 10/08/2011 10/30/2015 Genetic Sleep Disorder Research Other*[id number] 07/25/2011 05/15/2016 COPD, moderate 07/19/2011 07/28/2019 Overview: [...] mRNA, LNP-s, No Pre serve, 2-Dose Series ([employer]) 08/21/2021,12/22/2020,2020 COVID-19, LNP-s, No Preserve , Tyler-sucrose, Ages 12+ (Pfizer) 04/16/2022 Hepatitis B, 20+ yrs 10/01/2017,04/21/2017,03/20 Pneumococcal Conjugate Vacc, 13 Valent (Prevnar) 03/28/2015 Pneumococcal Conjugate Vacci ne, 20-valent ([id number]) 04/01/2022 Pneumococcal Polysaccharide PPV23 (Pneumovax) 05/21/2006 Seasonal [...] Also Stephani is returning call to Joanna, case repairer, however unable to transfer to her, so please advise Joanna that Stephani returned her call. CallbacK: [phone] * Telephone Encounter - Dodie Carson LPN [...] Orthopedics Eliezer Gifford, [address] [place] [address] 10/10/2022 Office Visit Internal Medicine Marcela Pinto MD [address] [place] [address] 10/29/2022 Nurse Only Ancillary Doran, Pre Surgical Covid Testing Connie [address] [place] [address] 10/31/2022 Hospital Encounter Dionte Snyder MD [address] [place] [address] 11/01/2022 Hospital Encounter Surgery Dionte Snyder MD [address] [place], [place] [id number] 11/01/2022 Surgery Surgery Dionte Snyder MD [address] [place], [place] [phone] LAPAROSCOPIC PARTIAL COLECTOMY WITH COLOPROCTOSTOMY 11/04/2022 Office Visit Hematology Oncology Ida Cueva CRNP [address] [place] [address] 11/08/2022 Scheduled Telephone General Surgery Colorectal, Nurse Follow Up Phone Call Schedule [address] [place] [address] 11/26/2022 Office Visit General Surgery Teresita Padron PA-C [address] [place] [address] 01/03/2023 Office Visit Cardiology Hammad Lopez, DO [address] [place] [address] Scheduled Procedures Name Priority Associated Diagnoses Date/Ti [...] Additional history exists CKD PHOS USE SMARTSET 14069 08/05/202307/14, 02/19/2022, 03/09/2021, Additional history exists CKD HGB USE SMARTSET 89060 08/19/202308/19, 08/12/2022, 08/06/2022, Additional history exists O2 [...] daniel occurred with: Not Discussed Care Teams Coal Conveyor Operator Relationship Specialty Start Date End Date Marcela Pinto MD [address] [place] [address] PCP - General Internal Medicine 08/04/14 documented as of this encounter
--- OUTSIDE RECORDS SUMMARY | 2023-06-18 02:35 | External Medical Summary | Summary of Care ---
Author Name Unknown Organization [place] [address] Care Team Providers Care Rug Setter [place]minster Name Role Phone Marcela Pinto MD Primary Care Provider + Reason for Visit * Reason Onset Date Comments Outpatient Testing 09/12/2022 Encounter Details Date Type Department Care Team Description 09/12/2022 Telephone General Surgery, [place] [address] [place] [address] Mirlande Morris RN [address] [place] [address] Outpatient Testing Allergies Active Allergy Reactions Severity Noted Date Comments Valsartan 07/10/2010 Enalapril 05/21/2006 Escitalopram Oxalate Nausea/vomiting 10/11/2009 Nauseated Iodinated Diagnostic Agents Nausea/vomiting 05/2010 IV Contrast Iodine Hives 12/18/2009 IV Contrast Metoprolol Tartrate 11/18/2006 Made pulse low [place] Oil-Black Currant-Vit E 07/10/2010 Verapamil 03/21/2004 Bupropion Hcl 10/30/2009 Makes pt sick in the stomach documented as of this encounter (statuses as of 09/12/2022) Medications Medication Sig Dispensed Refills Start Date [...] Respimat 1.25 MCG/ACT Inhalation Aerosol Solution (Tiotropium [place] Monohydrate) Inhale by mouth 2 Puffs daily [...] day as needed for Constipation. 0 Active methIMAzole 5 MG Oral Tablet (Tapazole) Take by mouth 5 mg in the morning. 0 Active HYDROcodone-Acetamin ophen 5-325 MG Oral [...] ejection fraction and diastolic dysfunction ([facility]),NICM (nonischemic cardiomyopathy) ([facility]),Presence of Watchman left atrial appendage closure [...] Friday only. 45 Tablet 3 09/11/2022 Active documented as of this encounter (statuses as of 09/12/2022) Active Problems Problem Noted Date Protein-calorie malnutrition [...] as of this encounter (statuses as of 09/12/2022) Resolved Problems Problem Noted Date Resolved Date [...] Hypoxemia 10/08/2011 10/30/2015 Genetic Sleep Disorder Research Other*[id number] 07/25/2011 05/15/2016 COPD, moderate 07/19/2011 07/28/2019 Overview: [...] as of this encounter (statuses as of 09/12/2022) Immunizations Name Administration Dates Next Due COVID-19 mRNA, LNP-s, No Pre serve, 2-Dose Series ([employer]) 08/21/2021,12/22/2020,2020 COVID-19, LNP-s, No Preserve , Tyler-sucrose, Ages 12+ (Pfizer) 04/16/2022 Hepatitis B, 20+ yrs 10/01/2017,04/21/2017,03/20 Pneumococcal Conjugate Vacc, 13 Valent (Prevnar) 03/28/2015 Pneumococcal Conjugate Vacci ne, 20-valent ([id number]) 04/01/2022 Pneumococcal Polysaccharide PPV23 (Pneumovax) 05/21/2006 Seasonal [...] Telephone Encounter - Mirlande Morris RN - 09/12/2022 10:51 AM EST Called pts daughter Stephani. No answer. LMOM That per urology pt will need a urine test done 2 weeks prior to srugery and t be done at any [facility]. [facility]. documented in this encounter Plan of Treatment Upcoming Encounters Date Type Specialty Care Team Description 09/24/2022 Office Visit Orthopedics Eliezer Gifford DO [address] [place] [address] 10/10/2022 Office Visit Internal Medicine Marcela Pinto MD [address] [facility] [place] [id number] 10/29/2022 Nurse Only Ancillary Doran, Pre Surgical Covid Testing Connie [address] [place] [address] 10/31/2022 Hospital Encounter Dionte Snyder MD [address] [place] [address] 11/04/2022 Office Visit Hematology Oncology Ida Cueva CRNP [address] [facility] [place] [address] 11/08/2022 Scheduled Telephone General Surgery Colorectal, Nurse Follow Up Phone Call Schedule [address] [place] [address] 11/26/2022 Office Visit General Surgery Teresita Padron PA-C [address] [place] [address] 01/03/2023 Office Visit Cardiology Hammad Lopez DO [address] [place] [address] Health Maintenance Due Date Last Done Comments [...] Additional history exists CKD PHOS USE SMARTSET 28377 08/05/202307/14, 02/19/2022, 03/09/2021, Additional history exists CKD HGB USE SMARTSET 00082 08/19/202308/19, 08/12/2022, 08/06/2022, Additional history exists O2 [...] daniel occurred with: Not Discussed Care Teams Rug Setter [place] Relationship Specialty Start Date End Date Marcela Pinto MD [address] [facility] [place] [address] PCP - General Internal Medicine 08/04/14 documented as of this encounter
--- OUTSIDE RECORDS SUMMARY | 2023-06-18 02:35 | External Medical Summary | Summary of Care ---
Author Name Unknown Organization [place] [address] Care Team Providers Care Orthodontic Lab Technician Name Role Phone Marcela Pinto MD Primary Care Provider + Reason for Referral * Evaluate & Treat - Unlimited Visits (Within 30 days (routine)) - Authorized Specialty Diagnoses / Procedures Referred By Miguel Angel t Referred To Contact Urology Diagnoses Preop examination Dionte Snyder MD [address] [place] [address] Referral ID Status Reason Start Date Expiration Date Visits Requested Visits Authorized [id number] Authorized Specialty Services Required 2 [phone] Question Answer Referral Priority Within 30 days (routine) What is the patient being referred for? Other conditions Comments Needs luz ureterals tents for surgery with Dr snyder on 11/01/22 Pt lives 2.5 hrs away, admitting pt day before for bowel prep and due to co morbidities consnet please on day of admission ( 10/31/22) Reason for Visit * Reason Comments Follow Up Resection eval Encounter Details Date Type Department Care Team Description 09/11/2022 Office Visit General Surgery, [place] [address] [place] [address] Dionte Snyder MD [address] [place] [address] Colovesical fistula*; Preop examination Allergies Active Allergy Reactions Severity Noted Date Comments Valsartan 07/10/2010 Enalapril 05/21/2006 Escitalopram Oxalate Nausea/vomiting 10/11/2009 Nauseated Iodinated Diagnostic Agents Nausea/vomiting 05/2010 IV Contrast Iodine Hives 12/18/2009 IV Contrast Metoprolol Tartrate 11/18/2006 Made pulse low [place] Oil-Black Currant-Vit E 07/10/2010 Verapamil 03/21/2004 Bupropion Hcl 10/30/2009 Makes pt sick in the stomach documented as of this encounter (statuses as of 09/11/2022) Medications Medication Sig Dispensed Refills Start Date [...] Respimat 1.25 MCG/ACT Inhalation Aerosol Solution (Tiotropium [place] Monohydrate) Inhale by mouth 2 Puffs daily . 0 Active Spironolactone 25 MG Oral Tablet (Aldactone) Take by mouth 0.5 Tablets once a day on Friday, Friday, and Friday only . 45 Tablet 3 2 Active Atorvastatin Calcium 40 MG Oral Tablet (Lipitor) Take by mouth 1 Tablet in the morning. 100 Tablet 3 2 Active Dicyclomine HCl 20 MG Oral Tablet [...] 5 mg in the morning. 0 Active HYDROcodone-Acetami nophen 5-325 MG Oral TabletIndications:G eneralized osteoarthritis Take by mouth 1 Tablet every 6 hours as needed for Pain, Mild. 120 Tablet 0 2 Active Glimepiride 2 MG Oral Tablet (Amaryl) TAKE 1 TABLET BY MOUTH EVERY DAY WITH BREAKFAST 90 Tablet 1 2 Active Metoprolol Succinate ER 25 MG Oral Tablet Extended Release 24 Hour (toPROL XL)Indications:Party Director akin 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 135 Tablet 3 2 Active Magnesium Chloride 64 MG Oral [...] 1 Tablet before bedtime. 60 Tablet 6 2 09/11/20 22 Discontinu ed(Refill) documented as of this encounter (statuses as of 09/11/2022) Active Problems Problem Noted Date Protein-calorie malnutrition [...] as of this encounter (statuses as of 09/11/2022) Resolved Problems Problem Noted Date Resolved Date [...] Hypoxemia 10/08/2011 10/30/2015 Genetic Sleep Disorder Research Other*[id number] 07/25/2011 05/15/2016 COPD, moderate 07/19/2011 07/28/2019 Overview: [...] Lipid Taxonomy. HTN, GOAL BELOW 140/90 08/18/2009 01/27/201 0 Overview: Modified per HTN Taxonomy. Type [...] as of this encounter (statuses as of 09/11/2022) Immunizations Name Administration Dates Next Due COVID-19 mRNA, LNP-s, No Pre serve, 2-Dose Series (RF Code) 08/21/2021,12/22/2020,2020 COVID-19, LNP-s, No Preserve , Tyler-sucrose, Ages 12+ (Pfizer) 04/16/2022 Hepatitis B, 20+ yrs 10/01/2017,04/21/2017,03/20 Pneumococcal Conjugate Vacc, 13 Valent (Prevnar) 03/28/2015 Pneumococcal Conjugate Vacci ne, 20-valent ([id number]) 04/01/2022 Pneumococcal Polysaccharide PPV23 (Pneumovax) 05/21/2006 Seasonal [...] Sign Reading Time Taken Comments Blood Pressure 122/81 09/11/2022 8:01 AM EST Pulse 98 09/11/2022 8:01 AM EST Temperature 36.8 C (98.2 F) 09/11/2022 8:01 AM ES T Respiratory Rate - - Oxygen Saturation 99% 09/11/2022 8:01 AM EST 2L Inhaled Oxygen Concentration - - Weight 92.2 kg (203 lb 4.8 oz) 09/11/2022 8:01 A M EST Height 165.1 cm (5' 5") 09/11/2022 8:01 AM EST Body Mass Index 33.83 09/11/2022 8:01 AM EST documented in this encounter Functional [...] as of this encounter Progress Notes * Missy Pinzon MD - 09/11/2022 8:05 AM EST COLORECTAL SURGERY HISTORY AND PHYSICAL [place], [place] Nina Champagne Juany 09/11/2022 [id number] Referring Physician: 1. Marcela Pinto MD Primary Care Physician: Marcela Pinto MD CHIEF COMPLAINT: Complicated diverticulitis and colovesical fistula HISTORY OF PRESENT ILLNESS: 81 y/o F with PMHx below presenting for surgical evaluation of colovesical fistula Last clinic note 07/08/2022 with Teresita: 81 y/o F with PMHx of heart failure(last cath and echo 12/2020 with EF 35%, non-occlusive disease), Afib with Watchman,asthmaand COPDon 2L NC daytime and 4L NC night, DM II on oral antihyperglycemics, HTN, hyperthyroidism who presents for evaluation after recent admission to [facility] from 06/06/22to 06/10/22 for complicated diverticulitis with colovesical fistula. Pt was managed non- operatively and discharged on Cipro/Flagyl. She presents today with her two daughters to discuss surgical intervention. Pt states she has had several episodes of diverticulitis in the past. Her last colonoscopy was completed in 2019 noting diverticulosis and 5 mm polyp. Pt also with hx of multiple diverticular bleeds requiring transfusion which is why she is not on Coumadin anymore. Due to her cardiac historyshe was deemed not a surgical candidate in the past. Since discharge she passes air when urinating.She currently denies abdominal pain. She is tolerating a low residue diet and having regular bowel f unction. At today's visit, Denies N/V/Sob/ chest pain, changes in appetite. She was recently admitted 07/25-07/29/2022 at [facility] for complicated diverticulitis and treated medically with IV Abx (ertapenem). IR drain in place from previous admission for drainage of ovarian cyst. PICC line in place, finished her course of Abx 1 week ago. Home health RN to remove. She was seen by cardiology clinic 07/15/2022 for cardiac pre op risk assessment Cardiovascular preoperative risk stratification Patient's risk for surgery is multifactorial due to her history of nonischemic cardiomyopathy and severe oxygen-dependent COPD. In terms of preop risk assessment, per Abel Criteria, patient was counseled that she would be placed at a moderate to high riskfor any adverse perioperative cardiovascular events associated with colorectal surgery. We discussed risks with anesthesia related to her heartfailure and lung disease. She also has chronic iron deficiency anemia with a hemoglobin of 9. This also places her at risk for complications. She appears well compensated from a cardiac standpoint.Patient is on a good medication regime and no other cardiac testing or interventions would further lo wer that risk.Patient states she understands her risk but would like to avoid surgery if at allpossible. States that she will consider her risk and reach out to General surgery to discuss conservative measures versus surgery again. PSHx includes tubal ligation,opencholecystectomy, and epigastric incisional hernia repair with mesh. REVIEW OF SYSTEMS: ROS negative unless otherwise noted in HPI. PAST MEDICAL HISTORY: Past Medical History: Diagnosis Date ACEI/ARB contraindicated Asthma Carpal tunnel syndrome DM type 2, goal: symptom mgmt (HCC) Generalized osteoarthritis HTN, goal below 140/90 Mixed dyslipidemia MEDICATIONS: Outpatient Medications Marked as Taking for the 09/11/22 encounter (Office Visit) with Dionte Snyder MD Medication Sig Ipratropium-Albuterol 20-100 MCG/ACT Inhalation Aerosol Solution (Combivent Respimat) TAKE 1 PUFF BY MOUTH 4 TIMES A DAY Klor-Con M20 20 MEQ Oral Tablet Extended Release (Potassium Chloride Annalisa ER) TAKE 1 TABLET BY MOUTH EVERY DAY Glimepiride 2 MG Oral Tablet (Amaryl) TAKE 1 TABLET BY MOUTH EVERY DAY WITH BREAKFAST Metoprolol Succinate ER 25 MG Oral Tablet Extended Release 24 Hour (toPROL XL) TAKE 1 TAB IN THE MORNING AND 1/2 TAB IN THE EVENING. HYDROcodone-Acetaminophen 5-325 MG Oral Tablet Take by mouth 1 Tablet every 6 hours as needed for Pain, Mild. methIMAzole 5 MG Oral Tablet (Tapazole) Take by mouth 5 mg in the morning. Polyethylene Glycol 3350 17 GM Oral Packet (Miralax) Take by mouth 17 g 2 times a day as neededfor Constipation. Furosemide 40 MG Oral Tablet (Lasix) Take by mouth 1 Tablet in the morning AND 1 Tablet before bedtime. Omeprazole 20 MG Oral Capsule Delayed Release (PriLOSEC) TAKE 1 CAPSULE BY MOUTH TWICE A DAY Ondansetron 8 MG Oral Tablet Disintegrating (Zofran) DISSOLVE 1 TABLET ON TONGUE EVERY 8 HOURS NEEDED FOR NAUSEA Sertraline HCl 25 MG Oral Tablet (Zoloft) TAKE 1 TABLET BY MOUTH EVERY DAY IN THE MORNING Promethazine HCl 25 MG Oral Tablet (Phenergan) TAKE 1 TABLET BY MOUTH EVERY 6 HOURS NEEDED FOR NAUSEA Zafirlukast 20 MG Oral Tablet (Accolate) TAKE 1 TABLET BY MOUTH EVERY DAY Ferrous Sulfate 325 (65 Fe) MG Oral Tablet (Feosol) Take by mouth 1 Tablet in the morning. Dicyclomine HCl 20 MG Oral Tablet (Bentyl) TAKE 1 TABLET BY MOUTH EVERY DAY Atorvastatin Calcium 40 MG Oral Tablet (Lipitor) Take by mouth 1 Tablet in the morning. Spironolactone 25 MG Oral Tablet (Aldactone) Take by mouth 0.5 Tablets once a day on Friday, Friday, and Friday only . Spiriva Respimat 1.25 MCG/ACT Inhalation Aerosol Solution (Tiotropium [place] Monohydrate) Inhale by mouth 2 Puffs daily . Aspirin 81 MG Oral Tablet Delayed Release Take 81 mg by mouth daily. Albuterol Sulfate (VENTOLIN HFA) 108 (90 Base) MCG/ACT AERS Inhale 2 Puffs by mouth 2 times a day. albuterol sulfate (PROVENTIL) (2.5 MG/3ML) 0.083% nebulizer solution USE ONE NEBULIZER TREATMENT TWICE A DAY DIRECTED FOR WORSENING ASTHMA. J45.909, J44.9 docusate sodium (COLACE) 100 MG Capsule Take 1 Cap by mouth daily. [facility] SENNA 8.6 MG Tablet TAKE 2 TABLETS BY MOUTH EVERY EVENING FOR 10 DAYS NEEDED FOR CONSTIPATION Multiple Vitamins-Minerals (ONE DAILY MULTIVITAMIN WOMEN) TABS one pill each day oxygen GAS Use 4 L/min(Oxygen) as directed. Uses 2 LPM during the day and 4 LPM at night Probiotic Product (PROBIOTIC DAILY) Capsule Take 1 Cap by mouth daily. AZOPT 1 % OP SUSP INSTILL 1 DROP BY OPHTHALMIC ROUTE 2 TIMES EVERY DAY INTO BOTH EYES LUMIGAN 0.01 % OP SOLN INSTILL 1 DROP BY TOPICAL ROUTE EVERY BEDTIME VITAMIN D 1000 UNITS PO TABS one tablet daily ALLERGIES TO MEDICATIONS: Review of patient's allergies indicates: Review of patient's allergies indicates: Allergen Reactions Diovan [Valsartan] Enalapril Escitalopram Oxalate Nausea/vomiting Nauseated Iodinated Diagnostic Agents Nausea/vomiting IV Contrast Iodine Hives IV Contrast Metoprolol Tartrate Made pulse low [place] Oil-Black Currant-Vit E Verapamil Wellbutrin [Bupropion Hcl] Makes pt sick in the stomach PAST SURGICAL HISTORY: Past Surgical History: Procedure Laterality Date APPENDECTOMY W/OTHER PROCEDURE 1960 when removed gall bladder COLONOSCOPY, DIAGNOSTIC (RECTUM) 05/29/2016 poor prep, diverticulosis/inpt [facility] COLONOSCOPY, DIAGNOSTIC (RECTUM) 06/05/2017 diverticulosis, repeat 3 yrs/[facility] COLONOSCOPY, DIAGNOSTIC (RECTUM) 02/28/2018 adenomatous polyps, diverticulosis, repeat 3 yrs / [facility] COLONOSCOPY, DIAGNOSTIC (RECTUM) 05/08/2020 inflammatory tissue on bx, diverticulosis / [facility] COLONOSCOPY, W/BIOPSY 03/20/2012 hyperplastic polyps rpt 3 years. EGD, FLEXIBLE, DIAGNOSTIC 04/29/2014 normal/inpt [facility] EGD, FLEXIBLE, DIAGNOSTIC 05/29/2016 fundic submucosal mass/inpt [facility] EGD, FLEXIBLE, DIAGNOSTIC 05/08/2020 normal / [facility] EGD, FLEXIBLE,W/ENDOSCOPIC US 11/08/2016 inflammatory changes, stomach lesion, repeat EUS 1.5 yrs/[facility] EGD, FLEXIBLE,W/ENDOSCOPIC US 05/01/2018 stromal cell (smooth muscle) neoplasm, CBD dilation, repeat 2 yrs (needs OV prior)/[facility] EGD, FLEXIBLE,W/ENDOSCOPIC US 09/01/2020 leiomyoma / [facility] INCISIONAL HERNIA REPAIR, LAP, REDUCIBLE 09/29/2012 Repair of incarcerated supraumbilical (incisional) hernia with [facility] mesh 09/29/12 IR ASPIRATION ABSCESS/COLLECTION 07/25/2022 LIGATE/CUT OVIDUCT(S) REMOVAL OF TONSILS, AGE 12+ age 11 REMOVE GALLBLADDER 1960 SIGMOIDOSCOPY, DIAGNOSTIC 04/29/2014 stool in rectum/inpt [facility] SMALL BOWEL ENDOSCOPY, REMOVE FOREIGN BODY [...] asthma Asthma Daughter SOCIAL HISTORY: 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 Socioeconomic History Marital status: Spouse name: Not on file Number of children: 6 Years of education: Not on file Highest education level: Not on file Occupational History Occupation: Disability 1998 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, 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, 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 Tobacco Use Smoking status: Never Smokeless tobacco: [...] on file Housing Stability: Not on file PHYSICAL EXAMINATION: BP 122/81 | Pulse 98 | Temp 36.8 C (98.2 F) | Ht 1.651 m (5' 5") | Wt 92.2 kg (203 lb 4.8 oz) |SpO2 99% Comment: 2L | BMI 33.83 kg/m | BSA 2.06 m Constitutional: well nourished, well developed, no acute distress Neck: Supple, full ROM Chest: normal respiratory effort Abdomen: soft, NTTP, ND Ext: no edema Skin: complete exam not performed, but no obvious gross lesions Neuro: alert, oriented to person, place, and time, motor and sensation grossly intact IMPRESSION: 81 y/o female with recurrent diverticulitis and colovesical fistula PLAN: Discussed surgical intervention which would include laparoscopic possible open low anterior resection and takedown of colovesical fistula. Patient consented, risks and benefits of procedure reviewed. Plan for OR after hol. Plan discussed with Dr. Claudio Pinzon MD - PGY1 General Surgery Resident [facility] ATTENDING ADDENDUM: I have discussed the patient's management with the medical trainee and agree with the note. Please refer to the documented findings and plan of care. This patient's visit today consisted of an evaluation. I was present and confirmed the findings of the history and exam. History and exam as above. We discussed the proposed operation which will be a laparoscopic, possible open, low anterior resection, possible ostomy. We discussed the risks including bleeding, infection, damage to surrounding structures (small bowel, ureter, spleen, kidney, liver), anastomotic leak, hernia, DVT, PE, pneumonia, MS stroke and . She is at increased risk for all complications secondary to her medical comorbidities and we discussed this. Additional procedures may be necessary asthe situation dictates. We discussed the expected postoperative course. Patient understands and agrees to proceed. Consent signed today. Dionte Snyder MD Colorectal Surgery documented in this encounter Plan of Treatment Upcoming Encounters Date Type Specialty Care Team Description 09/24/2022 Office Visit Orthopedics Eliezer Gifford DO [address] [facility] [place] [id number] 10/10/2022 Office Visit Internal Medicine Marcela Pinto MD [address] [facility] [place] [address] 10/29/2022 Nurse Only Ancillary Doran, Pre Surgical Covid Testing Connie [address] [place] [address] 10/31/2022 Hospital Encounter Dionte Snyder MD [address] [place] [address] 11/04/2022 Office Visit Hematology Oncology Ida Cueva CRNP [address] [facility] [place] [address] 11/08/2022 Scheduled Telephone General Surgery Colorectal, Nurse Follow Up Phone Call Schedule [address] [place] [address] 11/26/2022 Office Visit General Surgery Teresita Padron PA-C [address] [place] [address] 01/03/2023 Office Visit Cardiology Hammad Lopez DO [address] [place] [address] Scheduled Orders Name Type Priority Associated Diagnoses Orde r Schedule SARS-COV-2 (COVID-19), NAAT Lab Routine Preop examination Expected: 10/29/2022, Expires: 09/11/2023 Scheduled Referrals Name Type Priority Associated Diagnoses Orde r Schedule UROLOGY REFERRAL OP Referral Within 30 da ys (routine) Preop examination Ordered: 09/11/2022 Health Maintenance Due Date Last Done Comments [...] Additional history exists CKD PHOS USE SMARTSET 32747 08/05/202307/14, 02/19/2022, 03/09/2021, Additional history exists CKD HGB USE SMARTSET 32374 08/19/202308/19, 08/12/2022, 08/06/2022, Additional history exists O2 [...] as of this encounter Visit Diagnoses Diagnosis Colovesical fistula- Primary Intestinovesical fistula Preop examination Preoperative examination, unspecified documented in this encounter Advance Directives Latest [...] daniel occurred with: Not Discussed Care Teams Orthodontic Lab Technician Relationship Specialty Start Date End Date Marcela Pinto MD [address] [place] [address] PCP - General Internal Medicine 08/04/14 documented as of this encounter
--- OUTSIDE RECORDS SUMMARY | 2023-06-18 02:35 | External Medical Summary | Summary of Care ---
Author Name Unknown Organization [place] [address] Care Team Providers Care Rigging Engineer Name Role Phone Marcela Pinto MD Primary Care Provider + Reason for Visit * Reason Comments eRx-Medication Refill Encounter Details Date Type Department Care Team Description 09/11/2022 Refill Cardiology, [facility] [address] [place] [address] Eron Harris, DO [address] [facility] [place] [address] Hyperlipidemia with target LDL less than 100* Allergies Active Allergy Reactions Severity Noted Date Comments Valsartan 07/10/2010 Enalapril 05/21/2006 Escitalopram Oxalate Nausea/vomiting 10/11/2009 Nauseated Iodinated Diagnostic Agents Nausea/vomiting 05/2010 IV Contrast Iodine Hives 12/18/2009 IV Contrast Metoprolol Tartrate 11/18/2006 Made pulse low [place] Oil-Black Currant-Vit E 07/10/2010 Verapamil 03/21/2004 Bupropion [...] Respimat 1.25 MCG/ACT Inhalation Aerosol Solution (Tiotropium [place] Monohydrate) Inhale by mouth 2 Puffs daily [...] 5 mg in the morning. 0 Active HYDROcodone-Acetam inophen 5-325 MG Oral [...] reduced ejection fraction and diastolic dysfunction ([facility]),NICM (nonischemic cardiomyopathy) ([facility]),Presence of Watchman left atrial appendage closure [...] Friday only. 45 Tablet 3 2 Active Atorvastatin Calcium 40 MG Oral Tablet (Lipitor) Take by mouth 1 Tablet in the morning. 100 Tablet 3 2 09/11/20 22 Discontinued documented as of this encounter [...] Hypoxemia 10/08/2011 10/30/2015 Genetic Sleep Disorder Research Other*[id number] 07/25/2011 05/15/2016 COPD, moderate 07/19/2011 07/28/2019 Overview: [...] mRNA, LNP-s, No Pre serve, 2-Dose Series (NexMed) 08/21/2021,12/22/2020,2020 COVID-19, LNP-s, No Preserve , Tyler-sucrose, Ages 12+ (Pfizer) 04/16/2022 Hepatitis B, 20+ yrs 10/01/2017,04/21/2017,03/20 Pneumococcal Conjugate Vacc, 13 Valent (Prevnar) 03/28/2015 Pneumococcal Conjugate Vacci ne, 20-valent ([id number]) 04/01/2022 Pneumococcal Polysaccharide PPV23 (Pneumovax) 05/21/2006 Seasonal [...] encounter Miscellaneous Notes * Telephone Encounter - Eron Harris DO - 09/11/2022 4:07 PM ESTSigned Prescriptions: Disp Refills Atorvastatin Calcium 40 MG Oral Tablet (Li*90 Tab*4 Sig: TAKE BY MOUTH 1 TABLET IN THE MORNING. Authorizing Provider: ERON HARRIS * Telephone Encounter - Janny Waterman LPN - 09/11/2022 3:07 PM ESTPending Prescriptions: Disp Refills Atorvastatin Calcium 40 MG Oral Tablet [Ph*90 Tab*4 Sig: Take by mouth 1 Tablet in the morning. * Telephone Encounter - Janny Waterman LPN - 09/11/2022 3:05 PM EST Did you pend patient's preferred pharmacy and medication before forwarding?yes Pharmacy: [id number] [id number] [facility] Pending Prescriptions: Disp Refills Atorvastatin Calcium 40 MG Oral Tablet (L*90 Tab*4 Sig: TAKE BY MOUTH 1 TABLET IN THE MORNING. Last Visit: 07/15/2022 (in office), Visit date not found (telemedicine) Next Visit: 01/03/2023 If no future appointments scheduled, and last appointment is greater than a year ago, please schedule patient for a follow-up appointment Last date the medication was ordered: 12/27/2021 Is this request for a controlled substance?No [...] Gifford, DO [address] [place] [address] 10/10/2022 Office Visit Internal Medicine Marcela Pinto MD [address] [facility] [place] [address] 10/29/2022 Nurse Only Ancillary Doran, Pre Surgical Covid Testing Connie [address] [place] [address] 10/31/2022 Hospital Encounter LongDionte MD [address], [place] [id number] 11/04/2022 Office Visit Hematology Oncology Ida Cueva CRNP [address] [facility] [place] [address] 11/08/2022 Scheduled Telephone General Surgery Colorectal, Nurse Follow Up Phone Call Schedule [address] [place] [address] 11/26/2022 Office Visit General Surgery Teresita Padron PA-C [address] [place] [address] 01/03/2023 Office Visit Cardiology Eron Harris DO [address] [place] [address] Health Maintenance Due Date Last Done Comments [...] Additional history exists CKD PHOS USE SMARTSET 90242 08/05/202307/14, 02/19/2022, 03/09/2021, Additional history exists CKD HGB USE SMARTSET 50260 08/19/202308/19, 08/12/2022, 08/06/2022, Additional history exists O2 [...] as of this encounter Visit Diagnoses Diagnosis Hyperlipidemia with target LDL less than 100- Primary Other and unspecified hyperlipidemia documented in this encounter Advance Directives Latest [...] daniel occurred with: Not Discussed Care Teams Rigging Engineer Relationship Specialty Start Date End Date Marcela Pinto MD [address] [facility] [place] [address] PCP - General Internal Medicine 08/04/14 documented as of this encounter
--- OUTSIDE RECORDS SUMMARY | 2023-06-18 02:35 | External Medical Summary | Summary of Care ---
Author Name Unknown Organization [place] [address] Care Team Providers Care Mission Systems Engineer Name Role Phone Marcela Pinto MD Primary Care Provider + Reason for Referral * Evaluate & Treat - Unlimited Visits (Within 30 days (routine)) - Authorized Specialty Diagnoses / Procedures Referred By Miguel Angel t Referred To Contact Urology Diagnoses Preop examination Dionte Snyder MD [address] [place] [address] Referral ID Status Reason Start Date Expiration Date Visits Requested Visits Authorized [id number] Authorized Specialty Services Required 2 999 999 [...] Team Description 09/11/2022 Office Visit General Surgery, [place] [address] [place] [address] Dionte Snyder MD [address] [place] [address] Colovesical fistula*; Preop examination Allergies Active Allergy Reactions Severity Noted Date Comments Valsartan 07/10/2010 Enalapril 05/21/2006 Escitalopram Oxalate Nausea/vomiting 10/11/2009 Nauseated Iodinated Diagnostic Agents Nausea/vomiting 05/2010 IV Contrast Iodine Hives 12/18/2009 IV Contrast Metoprolol Tartrate 11/18/2006 Made pulse low [place] Oil-Black Currant-Vit E 07/10/2010 Verapamil 03/21/2004 Bupropion [...] Respimat 1.25 MCG/ACT Inhalation Aerosol Solution (Tiotropium [place] Monohydrate) Inhale by mouth 2 Puffs daily [...] Pain, Mild. 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 135 Tablet 3 08/09/20 Active Magnesium Chloride 64 MG Oral [...] 100 Tablet 3 12/28/19 22 022 Discontinued Furosemide 40 MG Oral Tablet (Lasix) Take by mouth 1 Tablet in the morning AND 1 Tablet before bedtime. 60 Tablet 6 06/25/20 22 022 Discontinued(Re fill) documented as of this encounter [...] Hypoxemia 10/08/2011 10/30/2015 Genetic Sleep Disorder Research Other*[id number] 07/25/2011 05/15/2016 COPD, moderate 07/19/2011 07/28/2019 Overview: [...] mRNA, LNP-s, No Pre serve, 2-Dose Series ([email or web address]) 08/21/2021,12/22/2020,2020 COVID-19, LNP-s, No Preserve , Tyler-sucrose, Ages 12+ (Pfizer) 04/16/2022 Hepatitis B, 20+ yrs 10/01/2017,04/21/2017,03/20 Pneumococcal Conjugate Vacc, 13 Valent (Prevnar) 03/28/2015 Pneumococcal Conjugate Vacci ne, 20-valent ([id number]) 04/01/2022 Pneumococcal Polysaccharide PPV23 (Pneumovax) 05/21/2006 Seasonal [...] AM EST COLORECTAL SURGERY HISTORY AND PHYSICAL [place], [place] Nina Ihsan Harrington 09/11/2022 [id number] Referring Physician: 1. Marcela Pinto MD Primary [...] presents for evaluation after recent admission to [facility]06/22[place] 06/10/22 for complicated diverticulitis [...] appetite. She was recently admitted 07/25-07/29/2022 at [facility] [place] for complicated diverticulitis [...] Respimat 1.25 MCG/ACT Inhalation Aerosol Solution (Tiotropium [place] Monohydrate) Inhale by mouth 2 Puffs daily [...] IV Contrast Metoprolol Tartrate Made pulse low [place] Oil-Black Currant-Vit E Verapamil Wellbutrin [Bupropion Hcl] Makes pt sick in the stomach PAST SURGICAL HISTORY: Past Surgical History: Procedure Laterality Date APPENDECTOMY W/OTHER PROCEDURE 1960 when removed gall bladder COLONOSCOPY, DIAGNOSTIC (RECTUM) 05/29/2016 poor prep, diverticulosis/inpt [facility] COLONOSCOPY, DIAGNOSTIC (RECTUM) 06/05/2017 diverticulosis, repeat 3 yrs/[facility] COLONOSCOPY, DIAGNOSTIC (RECTUM) 02/28/2018 adenomatous polyps, diverticulosis, repeat 3 yrs / [facility] COLONOSCOPY, DIAGNOSTIC (RECTUM) 05/08/2020 inflammatory tissue on bx, diverticulosis / [facility] COLONOSCOPY, W/BIOPSY 03/20/2012 hyperplastic polyps rpt 3 years. EGD, FLEXIBLE, DIAGNOSTIC 04/29/2014 normal/inpt [facility] EGD, FLEXIBLE, DIAGNOSTIC 05/29/2016 fundic submucosal mass/inpt [facility] EGD, FLEXIBLE, DIAGNOSTIC 05/08/2020 normal / [facility] EGD, FLEXIBLE,W/ENDOSCOPIC US 11/08/2016 inflammatory changes, stomach lesion, repeat EUS 1.5 yrs/[facility] EGD, FLEXIBLE,W/ENDOSCOPIC US 05/01/2018 stromal cell (smooth muscle) neoplasm, CBD dilation, repeat 2 yrs (needs OV prior)/[facility] EGD, FLEXIBLE,W/ENDOSCOPIC US 09/01/2020 leiomyoma / [facility] INCISIONAL HERNIA REPAIR, LAP, REDUCIBLE 09/29/2012 Repair of incarcerated supraumbilical (incisional) hernia with Atrium mesh 09/29/12 IR ASPIRATION ABSCESS/COLLECTION 07/25/2022 LIGATE/CUT OVIDUCT(S) REMOVAL OF TONSILS, AGE 12+ age 11 REMOVE GALLBLADDER 1960 SIGMOIDOSCOPY, DIAGNOSTIC 04/29/2014 stool in rectum/inpt [facility] SMALL BOWEL ENDOSCOPY, REMOVE FOREIGN [...] Disability 1998 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 She is at increased [...] Visit Orthopedics Eliezer Gifford, [address] [place] [address] 10/10/2022 Office Visit Internal Medicine Marcela Pinto MD [address] [facility] [place] [address] 10/29/2022 Nurse Only Ancillary Doran, Pre Surgical Covid Testing Connie [address] [place] [address] 10/31/2022 Hospital Encounter Dionte Snyder MD [address] [place] [address] 11/04/2022 Office Visit Hematology Oncology Ida Cueva CRNP [address] [facility] [place] [id number] 11/08/2022 Scheduled Telephone General Surgery Colorectal, Nurse Follow Up Phone Call Schedule [address] [place] [address] 11/26/2022 Office Visit General Surgery Teresita Padron PA-C [address] [place] [address] 01/03/2023 Office Visit Cardiology Hammad Lopez DO [address] [place] [address] Scheduled Orders Name Type Priority Associated Diagnoses [...] Additional history exists CKD PHOS USE SMARTSET 29047 08/05/202307/14, 02/19/2022, 03/09/2021, Additional history exists CKD HGB USE SMARTSET 19449 08/19/202308/19, 08/12/2022, 08/06/2022, Additional history exists O2 [...] daniel occurred with: Not Discussed Care Teams Mission Systems Engineer Relationship Specialty Start Date End Date Marcela Pinto MD [address] [facility] [address] PCP - General Internal Medicine 08/04/14 documented as of this encounter
--- OUTSIDE RECORDS SUMMARY | 2023-06-18 02:35 | External Medical Summary | Summary of Care ---
Author Name Unknown Organization [place] [address] Care Team Providers Care Skilled Labor Name Role Phone Marcela Pinto MD Primary Care Provider + Reason for Visit * Reason Onset Date Comments Medication Refill 09/11/2022 Encounter Details Date Type Department Care Team Description 09/11/2022 Refill Cardiology, [facility] [address] [facility] [place] [address] Hammad Lopez, [address] [place] [address] Allergies Active Allergy Reactions Severity Noted Date Comments Valsartan 07/10/2010 Enalapril 05/21/2006 Escitalopram Oxalate Nausea/vomiting 10/11/2009 Nauseated Iodinated Diagnostic Agents Nausea/vomiting 05/2010 IV Contrast Iodine Hives 12/18/2009 IV Contrast Metoprolol Tartrate 11/18/2006 Made pulse low [place] Oil-Black Currant-Vit E 07/10/2010 Verapamil 03/21/2004 Bupropion [...] Respimat 1.25 MCG/ACT Inhalation Aerosol Solution (Tiotropium [place] Monohydrate) Inhale by mouth 2 Puffs daily . 0 Active Atorvastatin Calcium 40 MG Oral Tablet [...] Oral Tablet Extended Release 24 Hour (toPROL XL)Indications:Shoulder Boner akin 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 ([facility]),NICM (nonischemic cardiomyopathy) ([facility]),Presence of Watchman left atrial appendage closure device [...] before bedtime. 180 Tablet 3 2 Active Spironolactone 25 MG Oral Tablet (Aldactone) Take 0.5 Tablets (12.5 mg) by mouth once a day on Friday, Friday, and Friday only. 45 Tablet 3 2 Active Spironolactone 25 MG Oral Tablet (Aldactone) Take by mouth 0.5 Tablets once a day on Friday, Friday, and Friday only . 45 Tablet 3 2 09/11/20 22 Discontinu ed(Refill) documented as [...] Hypoxemia 10/08/2011 10/30/2015 Genetic Sleep Disorder Research Other*[id number] 07/25/2011 05/15/2016 COPD, moderate 07/19/2011 07/28/2019 Overview: [...] mRNA, LNP-s, No Pre serve, 2-Dose Series (Luv[employer]) 08/21/2021,12/22/2020,2020 COVID-19, LNP-s, No Preserve , Tyler-sucrose, Ages 12+ (Pfizer) 04/16/2022 Hepatitis B, 20+ yrs 10/01/2017,04/21/2017,03/20 Pneumococcal Conjugate Vacc, 13 Valent (Prevnar) 03/28/2015 Pneumococcal Conjugate Vacci ne, 20-valent ([id number]) 04/01/2022 Pneumococcal Polysaccharide PPV23 (Pneumovax) 05/21/2006 Seasonal [...] encounter Miscellaneous Notes * Telephone Encounter - Ida Meza RN - 09/11/2022 2:43 PM EST Did you pend patient's preferred pharmacy and medication before forwarding?yes Pharmacy: [id number] [id number] [facility] Pending Prescriptions: Disp Refills Spironolactone 25 MG Oral Tablet (Aldacto*45 Tab*3 Sig: Take 0.5 Tablets (12.5 mg) by mouth once a day on Friday, Friday, and Friday only. Last Visit: 07/15/2022 (in office), Visit date [...] Visit Orthopedics Eliezer Gifford, DO [address] [facility] [place] [address] 10/10/2022 Office Visit Internal Medicine Marcela Pinto MD [address] [place] [address] 10/29/2022 Nurse Only Ancillary Espinoza, Pre Surgical Covid Testing Connie [address] [place] [address] 10/31/2022 Hospital Encounter Dionte Snyder MD [address] [place] [address] 11/04/2022 Office Visit Hematology Oncology Ida Cueva CRNP [address] [place], [place] [phone] 11/08/2022 Scheduled Telephone General Surgery Colorectal, Nurse Follow Up Phone Call Schedule [address] [place] [facility] [place] [address] 11/26/2022 Office Visit General Surgery Teresita Padron PA-C [address] [place] [address] 01/03/2023 Office Visit Cardiology Hammad Lopez DO [address] [place] [address] Health Maintenance Due Date Last Done Comments [...] Additional history exists CKD PHOS USE SMARTSET 67967 08/05/202307/14, 02/19/2022, 03/09/2021, Additional history exists CKD HGB USE SMARTSET 70829 08/19/202308/19, 08/12/2022, 08/06/2022, Additional history exists O2 [...] daniel occurred with: Not Discussed Care Teams Skilled Labor Relationship Specialty Start Date End Date Marcela Pinto MD [address] [place] [address] PCP - General Internal Medicine 08/04/14 documented as of this encounter
--- OUTSIDE RECORDS SUMMARY | 2023-06-18 02:35 | External Medical Summary | Summary of Care ---
Author Name Unknown Organization [place] [address] Care Team Providers Care Well Drill Operator Cable Tool Name Role Phone Marcela Pinto MD Primary Care Provider + Reason for Referral * Evaluate & Treat - Unlimited Visits (Within 30 days (routine)) - Authorized Specialty Diagnoses / Procedures Referred By Miguel Angel t Referred To Contact Urology Diagnoses Preop examination Dionte Snyder MD [address] [place] [address] Referral ID Status Reason Start Date Expiration Date Visits Requested Visits Authorized [id number] Authorized Specialty Services Required 2 999 999 [...] Team Description 09/11/2022 Office Visit General Surgery, [place] [address] [place] [address] Dionte Snyder MD [address] [place] [address] Colovesical fistula*; Preop examination Allergies Active Allergy Reactions Severity Noted Date Comments Valsartan 07/10/2010 Enalapril 05/21/2006 Escitalopram Oxalate Nausea/vomiting 10/11/2009 Nauseated Iodinated Diagnostic Agents Nausea/vomiting 05/2010 IV Contrast Iodine Hives 12/18/2009 IV Contrast Metoprolol Tartrate 11/18/2006 Made pulse low [place] Oil-Black Currant-Vit E 07/10/2010 Verapamil 03/21/2004 Bupropion [...] Respimat 1.25 MCG/ACT Inhalation Aerosol Solution (Tiotropium [place] Monohydrate) Inhale by mouth 2 Puffs daily . 0 Active Spironolactone 25 MG Oral Tablet (Aldactone) Take by mouth 0.5 Tablets once a day on Friday, Friday, and Friday only . 45 Tablet 3 12/28/2021 Active Atorvastatin Calcium 40 MG Oral Tablet (Lipitor) Take by mouth 1 Tablet in the morning. 100 Tablet 3 12/27/2021 Active Dicyclomine HCl 20 MG Oral Tablet [...] FOR NAUSEA 60 Tablet 5 06/14/2022 Active Furosemide 40 MG Oral Tablet (Lasix) Take by mouth 1 Tablet in the morning AND 1 Tablet before bedtime. 60 Tablet 6 06/25/2022 Active Polyethylene Glycol 3350 17 GM Oral [...] A DAY 12 g 1 09/10/2022 Active documented as of this encounter (statuses [...] Hypoxemia 10/08/2011 10/30/2015 Genetic Sleep Disorder Research Other*[id number] 07/25/2011 05/15/2016 COPD, moderate 07/19/2011 07/28/2019 Overview: [...] mRNA, LNP-s, No Pre serve, 2-Dose Series (Papirus) 08/21/2021,12/22/2020,2020 COVID-19, LNP-s, No Preserve , Tyler-sucrose, Ages 12+ (Pfizer) 04/16/2022 Hepatitis B, 20+ yrs 10/01/2017,04/21/2017,03/20 Pneumococcal Conjugate Vacc, 13 Valent (Prevnar) 03/28/2015 Pneumococcal Conjugate Vacci ne, 20-valent ([id number]) 04/01/2022 Pneumococcal Polysaccharide PPV23 (Pneumovax) 05/21/2006 Seasonal [...] AM EST COLORECTAL SURGERY HISTORY AND PHYSICAL [place], [place] Nina Harrington 09/11/[phone] Referring Physician: 1. Marcela Pinto MD Primary Care Physician: Marcela Pitno MD CHIEF COMPLAINT: Complicated diverticulitis and colovesical [...] presents for evaluation after [place] [facility] [place] for complicated diverticulitis with [...] appetite. She was recently admitted 07/25-07/29/2022 [place] [facility] [place] and treated medically with [...] Respimat 1.25 MCG/ACT Inhalation Aerosol Solution (Tiotropium [place] Monohydrate) Inhale by mouth 2 Puffs daily [...] IV Contrast Metoprolol Tartrate Made pulse low [place] Oil-Black Currant-Vit E Verapamil Wellbutrin [Bupropion Hcl] Makes pt sick in the stomach PAST SURGICAL HISTORY: Past Surgical History: Procedure Laterality Date APPENDECTOMY W/OTHER PROCEDURE 1960 when removed gall bladder COLONOSCOPY, DIAGNOSTIC (RECTUM) 05/29/2016 poor prep, diverticulosis/inpt [facility] COLONOSCOPY, DIAGNOSTIC (RECTUM) 06/05/2017 diverticulosis, repeat 3 yrs/[facility] COLONOSCOPY, DIAGNOSTIC (RECTUM) 02/28/2018 adenomatous polyps, diverticulosis, repeat 3 yrs / [facility] COLONOSCOPY, DIAGNOSTIC (RECTUM) 05/08/2020 inflammatory tissue on bx, diverticulosis / [facility] COLONOSCOPY, W/BIOPSY 03/20/2012 hyperplastic polyps rpt 3 years. EGD, FLEXIBLE, DIAGNOSTIC 04/29/2014 normal/inpt [facility] EGD, FLEXIBLE, DIAGNOSTIC 05/29/2016 fundic submucosal mass/inpt [facility] EGD, FLEXIBLE, DIAGNOSTIC 05/08/2020 normal / [facility] EGD, FLEXIBLE,W/ENDOSCOPIC US 11/08/2016 inflammatory changes, stomach lesion, repeat EUS 1.5 yrs/[facility] EGD, FLEXIBLE,W/ENDOSCOPIC US 05/01/2018 stromal cell (smooth muscle) neoplasm, CBD dilation, repeat 2 yrs (needs OV prior)/[facility] EGD, FLEXIBLE,W/ENDOSCOPIC US 09/01/2020 leiomyoma / [facility] INCISIONAL HERNIA REPAIR, LAP, REDUCIBLE 09/29/2012 Repair of incarcerated supraumbilical (incisional) hernia with Atrium mesh 09/29/12 IR ASPIRATION ABSCESS/COLLECTION 07/25/2022 LIGATE/CUT OVIDUCT(S) REMOVAL OF TONSILS, AGE 12+ age 11 REMOVE GALLBLADDER 1960 SIGMOIDOSCOPY, DIAGNOSTIC 04/29/2014 stool in rectum/inpt [facility] SMALL BOWEL ENDOSCOPY, REMOVE FOREIGN BODY [...] Disability 1998 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 Plan for OR after . Plan discussed with Dr. Claudio Pinzon MD - PGY1 General Surgery Resident [facility] ATTENDING ADDENDUM: I have discussed the patient's [...] liver), anastomotic leak, hernia, DVT, PE, pneumonia, [place] stroke and . She is at increased [...] Gifford DO [address] [place] [address] 10/10/2022 Office Visit Internal Medicine Marcela Pinto MD [address] [facility] [place] [address] 10/29/2022 Nurse Only Ancillary Doran, Pre Surgical Covid Testing Connie [address] [place] [address] 10/31/2022 Hospital Encounter Dionte Snyder MD [address] [place], [place] [phone] 11/04/2022 Office Visit Hematology Oncology Ida Cueva CRNP [address] [facility] [place] [id number] 11/08/2022 Scheduled Telephone General Surgery Colorectal, Nurse Follow Up Phone Call Schedule [address] [place] [address] 11/26/2022 Office Visit General Surgery Teresita Padron PA-C [address] [place] [address] 01/03/2023 Office Visit Cardiology Hammad Lopez DO [address] [place] [address] Scheduled Orders Name Type Priority Associated Diagnoses [...] Additional history exists CKD PHOS USE SMARTSET 94469 08/05/202307/14, 02/19/2022, 03/09/2021, Additional history exists O2 ASSESSMENT COMPLETED IN PAST YEAR FOR COPD 08/15/2023 09/11/2022 CKD HGB USE SMARTSET 08252 08/19/202308/19, 08/12/2022, 08/06/2022, Additional history exists DXA Scan 08/08/2025 08/08/2020, [...] daniel occurred with: Not Discussed Care Teams Well Drill Operator Cable Tool Relationship Specialty Start Date End Date Marcela Pinto MD [address] [facility], [place] [id number] PCP - General Internal Medicine 08/04/14 documented as of this encounter
--- OUTSIDE RECORDS SUMMARY | 2023-06-18 02:35 | External Medical Summary | Summary of Care ---
Author Name Unknown Organization [place] [address] Care Team Providers Care Fund Development Manager Name Role Phone Marcela Pinto MD Primary Care Provider + Reason for Visit * Reason Onset Date Comments Advice 09/10/2022 Encounter Details Date Type Department Care Team Description 09/10/2022 Telephone General Internal Medicine [facility] [address] [facility] [place] [address] Marcela Pinto MD [address] [place] [address] Advice Allergies Active Allergy Reactions Severity Noted Date Comments Valsartan 07/10/2010 Enalapril 05/21/2006 Escitalopram Oxalate Nausea/vomiting 10/11/2009 Nauseated Iodinated Diagnostic Agents Nausea/vomiting 05/2010 IV Contrast Iodine Hives 12/18/2009 IV Contrast Metoprolol Tartrate 11/18/2006 Made pulse low [place] Oil-Black Currant-Vit E 07/10/2010 Verapamil 03/21/2004 Bupropion Hcl 10/30/2009 Makes pt sick in the stomach documented as of this encounter (statuses as of 09/13/2022) Medications Medication Sig Dispensed Refills Start Date [...] Respimat 1.25 MCG/ACT Inhalation Aerosol Solution (Tiotropium [place] Monohydrate) Inhale by mouth 2 Puffs daily [...] THE EVENING. 135 Tablet 3 08/09/20 22 Active Magnesium Chloride 64 MG Oral Tablet Delayed Release (Mag-64) 64 mg . 0 07/25/20 22 Active Klor-Con M20 20 [...] DAY 12 g 1 09/10/20 22 Active Spironolactone 25 MG Oral Tablet (Aldactone) Take by mouth 0.5 Tablets once a day on Friday, Friday, and Friday only . 45 Tablet 3 12/29/19 22 022 Discontinued(Re fill) Atorvastatin Calcium 40 MG Oral Tablet (Lipitor) Take by mouth 1 Tablet in the morning. 100 Tablet 3 12/28/19 22 022 Discontinued methIMAzole 5 MG Oral Tablet (Tapazole) Take by mouth 5 mg in the morning. 0 Discontinued(Re fill) documented as of this encounter (statuses as of 09/13/2022) Active Problems Problem Noted Date Protein-calorie malnutrition 08/15/2022 Diverticulitis of intestine with abscess 07/25/2022 Ischemic colitis 06/27/2022 Asthma, mild persistent 06/27/2022 Gastroparesis 05/13/2022 Type 2 diabetes mellitus wit h stage 3a chronic kidney disease, without long-term current use of insulin 11/19/2021 History of ESBL E. coli infection 2020 Subclinical hyperthyroidism 08/20/2021 Chronic kidney disease, stage 3a Overview: Per CKD protocol Chronic systolic heart [...] as of this encounter (statuses as of 09/13/2022) Resolved Problems Problem Noted Date Resolved Date [...] Hypoxemia 10/08/2011 10/30/2015 Genetic Sleep Disorder Research Other*[id number] 07/25/2011 05/15/2016 COPD, moderate 07/19/2011 07/28/2019 Overview: [...] as of this encounter (statuses as of 09/13/2022) Immunizations Name Administration Dates Next Due COVID-19 mRNA, LNP-s, No Pre serve, 2-Dose Series ([employer]) 08/21/2021,12/22/2020,2020 COVID-19, LNP-s, No Preserve , Tyler-sucrose, Ages 12+ (Pfizer) 04/16/2022 Hepatitis B, 20+ yrs 10/01/2017,04/21/2017,03/20 Pneumococcal Conjugate Vacc, 13 Valent (Prevnar) 03/28/2015 Pneumococcal Conjugate Vacci ne, 20-valent ([id number]) 04/01/2022 Pneumococcal Polysaccharide PPV23 (Pneumovax) 05/21/2006 Seasonal [...] input. Thanks. * Telephone Encounter - Allie Horton waxed bag machine operator - 09/11/2022 10:51 AM EST Raissa calling from [facility] regarding PICC line in pt. States pt was to have PICC line until CT scan, requesting if PICC line can be removed at this time or is therapy to continue. Please review, requesting a return call high priority with update. Raissa can be reached at [phone] Thank you, Allie Horton Emergency Medical Technician [facility] 09/11/2022,10:52 AM * Telephone Encounter - JORDAN Mendenhall - 09/10/2022 10:52 AM EST Tamara with [facility] is needing to know if they need to still keep the line in patient. Please call Tamara back at [phone] documented in this encounter Plan of Treatment Upcoming Encounters Date Type Specialty Care Team Description 09/24/2022 Office Visit Orthopedics Eliezer Gifford, DO [address] [place] [address] 10/10/2022 Office Visit Internal Medicine Marcela Pinto MD [address] [place] [address] 10/29/2022 Nurse Only Ancillary Doran, Pre Surgical Covid Testing Connie [address] [place] [address] 10/31/2022 Hospital Encounter Dionte Snyder MD [address] [place] [facility] [place] [address] 11/04/2022 Office Visit Hematology Oncology Ida Cueva CRNP [address] [facility] [place] [id number] 11/08/2022 Scheduled Telephone General Surgery Colorectal, Nurse Follow Up Phone Call Schedule [address] [facility] [place] [address] 11/26/2022 Office Visit General Surgery Teresita Padron PA-C [address] [facility] [place] [phone] 01/03/2023 Office Visit Cardiology Hammad Lopez DO [address] [place] [address] Health Maintenance Due Date Last Done Comments [...] Additional history exists CKD PHOS USE SMARTSET 40211 08/05/202307/14, 02/19/2022, 03/09/2021, Additional history exists CKD HGB USE SMARTSET 79441 08/19/202308/19, 08/12/2022, 08/06/2022, Additional history exists O2 [...] daniel occurred with: Not Discussed Care Teams Fund Development Manager Relationship Specialty Start Date End Date Marcela Pinto MD [address] [facility] [place] [address] PCP - General Internal Medicine 08/04/14 documented as of this encounter
--- OUTSIDE RECORDS SUMMARY | 2023-06-18 02:35 | External Medical Summary | Summary of Care ---
Author Name Unknown Organization [place] [address] Care Team Providers Care Instructional Design Manager Name Role Phone Marcela Pinto MD Primary Care Provider + Reason for Visit * Reason Comments eRx-Medication Refill Encounter Details Date Type Department Care Team Description 09/11/2022 Refill General Internal Medicine [facility] [address] [facility] [place] [address] Marcela Pinto MD [address] [place] [address] Hyperthyroidism Allergies Active Allergy Reactions Severity Noted Date Comments Valsartan 07/10/2010 Enalapril 05/21/2006 Escitalopram Oxalate Nausea/vomiting 10/11/2009 Nauseated Iodinated Diagnostic Agents Nausea/vomiting 05/2010 IV Contrast Iodine Hives 12/18/2009 IV Contrast Metoprolol Tartrate 11/18/2006 Made pulse low [place] Oil-Black Currant-Vit E 07/10/2010 Verapamil 03/21/2004 Bupropion [...] Respimat 1.25 MCG/ACT Inhalation Aerosol Solution (Tiotropium [place] Monohydrate) Inhale by mouth 2 Puffs daily [...] day as needed for Constipation. 0 Active HYDROcodone-Acetami nophen 5-325 MG Oral TabletIndications:G eneralized osteoarthritis Take by mouth 1 Tablet every 6 hours as needed for Pain, Mild. 120 Tablet 0 2 Active Glimepiride 2 MG Oral Tablet (Amaryl) TAKE 1 TABLET BY MOUTH EVERY DAY WITH BREAKFAST 90 Tablet 1 2 Active Metoprolol Succinate ER 25 MG Oral Tablet Extended Release 24 Hour (toPROL XL)Indications:Reinforcement Maker akin heart failure with reduced ejection fraction [...] s:Asthma with severity to be determined,COPD, moderate ([facility]) TAKE 1 PUFF BY [...] the morning. 90 Tablet 1 2 Active methIMAzole 5 MG Oral Tablet (Tapazole) Take by mouth 5 mg in the morning. 0 09/12/20 22 Discontinu ed(Refill) documented as of this [...] Hypoxemia 10/08/2011 10/30/2015 Genetic Sleep Disorder Research Other*[id number] 07/25/2011 05/15/2016 COPD, moderate 07/19/2011 07/28/2019 Overview: [...] mRNA, LNP-s, No Pre serve, 2-Dose Series ([employer]) 08/21/2021,12/22/2020,2020 COVID-19, LNP-s, No Preserve , Tyler-sucrose, Ages 12+ (Pfizer) 04/16/2022 Hepatitis B, 20+ yrs 10/01/2017,04/21/2017,03/20 Pneumococcal Conjugate Vacc, 13 Valent (Prevnar) 03/28/2015 Pneumococcal Conjugate Vacci ne, 20-valent (Rrerlyq23) 04/01/2022 Pneumococcal Polysaccharide PPV23 (Pneumovax) 05/21/2006 Seasonal [...] Encounter - Marcela Pinto MD - 09/13/2022 8:07 AM ESTSigned Prescriptions: Disp Refills methIMAzole 5 MG Oral Tablet (Tapazole) 90 Tab*1 Sig: Take 1 Tablet (5 mg) by mouth in the morning. Authorizing Provider: MARCELA PINTO Refused Prescriptions: Disp Refills methIMAzole 10 MG Oral Tablet (Tapazole) 90 Tab*1 Sig: TAKE 1 TABLET BY MOUTH EVERY DAY Refused By: ADRIEL DARBY Reason f or Refusal: Refill Not Appropriate Reason for Refusal Comment: dose dec to 5 mg in hospital * Telephone Encounter - Adriel Darby [facility] - 09/12/2022 3:53 PM ESTPending Prescriptions: Disp Refills methIMAzole 5 MG Oral Tablet (Tapazole) 90 Tab*1 Sig: Take 1 Tablet (5 mg) by mouth in the morning. Refused Prescriptions: Disp Refills methIMAzole 10 MG Oral Tablet (Tapazole) 90 Tab*1 Sig: TAKE 1 TABLET BY MOUTH EVERY DAY Refused By: ADRIEL DARBY Reason for Refusal: Refill Not Appropriate Reason for Re fusal Comment: dose dec to 5 mg in hospital * Telephone Encounter - Adriel Darby [facility] - 09/12/2022 3:49 PM EST Methimazole decreased from 10 mg to 5 mg on 07/29/22 [facility] discharge. Pharmacists cannot authorize refills for meds listed as "historical" in chart. Please approve if appropriate. Thank you, Adriel Darby, PharmD Clinical Pharmacist [facility] [phone] 09/12/2022, 3:52 PM Pending Prescriptions: Disp Refills methIMAzole 5 MG Oral Tablet (Tapazole) 90 Tab*1 Sig: Take 1 Tablet (5 mg) by mouth in the morning. Refused Prescriptions: Disp Refills methIMAzole 10 MG Oral Tablet (Tapazole) 90 Tab*1 Sig: TAKE 1 TABLET BY MOUTH EVERY DAY Refused By: BISCOTTO, ADRIEL T Reason for Refusal: Refill Not Appropriate Reason for Refusal Comment: dose dec to 5 mg in hospital Last Visit: 08/15/2022 (in office), 08/08/2020 (telemedicine) Next Visit: 10/10/2022 If no future appointments scheduled, and last appointment is greater than a year ago, please schedule patient for a follow-up appointment Pharmacy: [id number] [facility] Is this request for a controlled [...] Gifford DO [address] [place] [address] 10/10/2022 Office Visit Internal Medicine Marcela Pinto MD [address] [place] [address] 10/29/2022 Nurse Only Ancillary Doran, Pre Surgical Covid Testing Connie [address] [place] [address] 10/31/2022 Hospital Encounter Dionte Snyder MD [address] [place], [place] [phone] 11/04/2022 Office Visit Hematology Oncology Ida Cueva CRNP [address] [facility] [place] [address] 11/08/2022 Scheduled Telephone General Surgery Colorectal, Nurse Follow Up Phone Call Schedule [address] [facility] [place] [address] 11/26/2022 Office Visit General Surgery Teresita Padron PA-C [address] [facility] [place] [address] 01/03/2023 Office Visit Cardiology Hammad Lopez, DO [address] [place] [address] Health Maintenance Due Date Last Done Comments [...] Additional history exists CKD PHOS USE SMARTSET 75451 08/05/202307/14, 02/19/2022, 03/09/2021, Additional history exists CKD HGB USE SMARTSET 29499 08/19/202308/19, 08/12/2022, 08/06/2022, Additional history exists O2 [...] daniel occurred with: Not Discussed Care Teams Instructional Design Manager Relationship Specialty Start Date End Date Marcela Pinto MD [address] [facility] [place], [place] [address] PCP - General Internal Medicine 08/04/14 documented as of this encounter
--- OUTSIDE RECORDS SUMMARY | 2023-06-18 02:35 | External Medical Summary | Summary of Care ---
Author Name Unknown Organization [place] [address] Care Team Providers Care Truck Engine Technician Name Role Phone Marcela iPnto MD Primary Care Provider + Reason for Visit * Reason Onset Date Comments Medication Refill 09/11/2022 Encounter Details Date Type Department Care Team Description 09/11/2022 Refill Cardiology, [facility] [address] [facility] [address] AngeliqueDulce hernandez CRNP [address] [place] [address] Allergies Active Allergy Reactions Severity Noted Date Comments Valsartan 07/10/2010 Enalapril 05/21/2006 Escitalopram Oxalate Nausea/vomiting 10/11/2009 Nauseated Iodinated Diagnostic Agents Nausea/vomiting 05/2010 IV Contrast Iodine Hives 12/18/2009 IV Contrast Metoprolol Tartrate 11/18/2006 Made pulse low [place] Oil-Black Currant-Vit E 07/10/2010 Verapamil 03/21/2004 Bupropion [...] Respimat 1.25 MCG/ACT Inhalation Aerosol Solution (Tiotropium [place] Monohydrate) Inhale by mouth 2 Puffs daily [...] Oral Tablet Extended Release 24 Hour (toPROL XL)Indications:Chief Pilot akin 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 ([facility]),NICM (nonischemic cardiomyopathy) ([facility]),Presence of Watchman left atrial appendage closure device [...] before bedtime. 180 Tablet 3 2 Active Furosemide 40 MG Oral Tablet [...] Hypoxemia 10/08/2011 10/30/2015 Genetic Sleep Disorder Research Other*[id number] 07/25/2011 05/15/2016 COPD, moderate 07/19/2011 07/28/2019 Overview: [...] mRNA, LNP-s, No Pre serve, 2-Dose Series ([employer]) 08/21/2021,12/22/2020,2020 COVID-19, LNP-s, No Preserve , Tyler-sucrose, Ages 12+ (Pfizer) 04/16/2022 Hepatitis B, 20+ yrs 10/01/2017,04/21/2017,03/20 Pneumococcal Conjugate Vacc, 13 Valent (Prevnar) 03/28/2015 Pneumococcal Conjugate Vacci ne, 20-valent ([id number]) 04/01/2022 Pneumococcal Polysaccharide PPV23 (Pneumovax) 05/21/2006 Seasonal [...] encounter Miscellaneous Notes * Telephone Encounter - NIECY Gaines - 09/11/2022 10:51 AM ESTSigned Prescriptions: Disp Refills Furosemide 40 MG Oral Tablet (Lasix) 180 Ta*3 Sig: Take 1 Tablet (40 mg) by mouth in the morning and 1 Tablet (40 mg) before bedtime. Authorizing Provider: WNECESLAO GORDON * Telephone Encounter - Darrne Mejia RN - 09/11/2022 10:03 AM EST Pending Prescriptions: Disp Refills Furosemide 40 MG Oral Tablet (Lasix) 180 Ta*3 Sig: Take 1 Tablet (40 mg) by mouth in the morning and 1 Tablet (40 mg) before bedtime. Last Visit: 07/15/2022 (in office), Visit date not found (telemedicine) Next Visit: 01/03/2023 Last medication order date: 06/25/2022 Have you choosen a preferred pharm?? yes [...] hemoglobin A1c goal of less than 7.5% ([facility]) E11.9 Elevated plasma metanephrines R79.89 Irritable bowel syndrome with constipation K58.1 HECTOR (generalized anxiety disorder) F41.1 COPD, group B, 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 ([facility]) J44.9 Morbid obesity with BMI of 40.0-44.9, adult ([facility]) E66.01, Z68.41 Gastro-esophageal reflux disease without esophagitis K21.9 Paroxysmal atrial fibrillation ([facility]) I48.0 Chronic systolic heart failure ([facility]) I50.22 Pulmonary HTN ([facility]) I27.20 Chronic hypoxemic respiratory failure ([facility]) J96.11 Chronic kidney disease, stage 3a ([facility]) N18.31 Subclinical hyperthyroidism E05.90 History of ESBL E. coli infection Z86.19 Type 2 diabetes mellitus with stage 3a chronic kidney disease, without long- term current use ofinsulin ([facility]) E11.22, N18.31 Gastroparesis K31.84 Ischemic colitis ([facility]) K55.9 Asthma, mild persistent J45.30 Diverticulitis of intestine with abscess K57.80 Protein-calorie malnutrition ([facility]) E46 Labs: Lab Results Component Value Date/Time [...] Gifford DO [address] [place] [address] 10/10/2022 Office Visit Internal Medicine Marcela Pinto MD [address] [facility] [place] [address] 10/29/2022 Nurse Only Ancillary Doran, Pre Surgical Covid Testing Connie [address] [place] [address] 10/31/2022 Hospital Encounter Dionte Snyder MD [address] [place] [address] 11/04/2022 Office Visit Hematology Oncology Ida Cueva CRNP [address] [place] [id number] 11/08/2022 Scheduled Telephone General Surgery Colorectal, Nurse Follow Up Phone Call Schedule [address] [place] [address] 11/26/2022 Office Visit General Surgery Teresita Padron PA-C [address] [place] [address] 01/03/2023 Office Visit Cardiology Hammad Lopez, [address] [place] [address] Health Maintenance Due Date Last Done Comments [...] Additional history exists CKD PHOS USE SMARTSET 33117 08/05/202307/14, 02/19/2022, 03/09/2021, Additional history exists CKD HGB USE SMARTSET 02443 08/19/202308/19, 08/12/2022, 08/06/2022, Additional history exists O2 [...] daniel occurred with: Not Discussed Care Teams Truck Engine Technician Relationship Specialty Start Date End Date Marcela Pinto MD [address] [facility] [place] [address] PCP - General Internal Medicine 08/04/14 documented as of this encounter
--- OUTSIDE RECORDS SUMMARY | 2023-06-18 02:36 | External Medical Summary | Summary of Care ---
Author Name Unknown Organization [place] [address] Care Team Providers Care Lockstitch Zipper Setter Name Role Phone Marcela Pinto MD Primary Care Provider + Reason for Visit * Reason Onset Date Comments Letter Requests 08/22/2022 Encounter Details Date Type Department Care Team Description 08/22/2022 Telephone General Internal Medicine [facility] [place] [address] [facility] [place] [address] Marcela Pinto MD [address] [facility] [place] [address] Letter Requests Allergies Active Allergy Reactions Severity Noted Date Comments Valsartan 07/10/2010 Enalapril 05/21/2006 Escitalopram Oxalate Nausea/vomiting 10/11/2009 Nauseated Iodinated Diagnostic Agents Nausea/vomiting 05/2010 IV Contrast Iodine Hives 12/18/2009 IV Contrast Metoprolol Tartrate 11/18/2006 Made pulse low [place] Oil-Black Currant-Vit E 07/10/2010 Verapamil 03/21/2004 Bupropion Hcl 10/30/2009 Makes pt sick in the stomach documented as of this encounter (statuses as of 08/29/2022) Medications Medication Sig Dispensed Refills Start Date [...] Respimat 1.25 MCG/ACT Inhalation Aerosol Solution (Tiotropium [place] Monohydrate) Inhale by mouth 2 Puffs daily . 0 Active Spironolactone 25 MG Oral Tablet (Aldactone) Take by mouth 0.5 Tablets once a day on Friday, Friday, and Friday only . 45 Tablet 3 12/28/2021 Active Atorvastatin Calcium 40 MG Oral Tablet (Lipitor) Take by mouth 1 Tablet in the morning. 100 Tablet 3 12/27/2021 Active Ipratropium-Albutero l 20-100 MCG/ACT Inhalation Aerosol Solution (Combivent Respimat)Indications :Asthma with severity to be determined,COPD, moderate ([facility]) TAKE 1 PUFF BY MOUTH 4 TIMES A DAY 12 g 1 01/31/2022 Active Dicyclomine HCl 20 MG Oral Tablet [...] disorder with single episode, in partial remission ([facility]),HECTOR (generalized anxiety disorder) TAKE 1 TABLET BY MOUTH EVERY DAY IN THE MORNING 90 Tablet 1 06/12/2022 Active Omeprazole 20 MG Oral Capsule Delayed Release (PriLOSEC)Indication s:Ischemic colitis ([facility]) TAKE 1 CAPSULE BY MOUTH TWICE A [...] ejection fraction and diastolic dysfunction ([facility]),NICM (nonischemic cardiomyopathy) ([facility]),Presence of Watchman left atrial appendage closure device [...] scheduled dye 3 Tablet 0 08/21/2022 Active documented as of this encounter (statuses as of 08/29/2022) Active Problems Problem Noted Date Protein-calorie malnutrition [...] as of this encounter (statuses as of 08/29/2022) Resolved Problems Problem Noted Date Resolved Date [...] Hypoxemia 10/08/2011 10/30/2015 Genetic Sleep Disorder Research Other*[id number] 07/25/2011 05/15/2016 COPD, moderate 07/19/2011 07/28/2019 Overview: [...] as of this encounter (statuses as of 08/29/2022) Immunizations Name Administration Dates Next Due COVID-19 mRNA, LNP-s, No Pre serve, 2-Dose Series ([employer]) 08/21/2021,12/22/2020,2020 COVID-19, LNP-s, No Preserve , Tyler-sucrose, Ages 12+ (Pfizer) 04/16/2022 Hepatitis B, 20+ yrs 10/01/2017,04/21/2017,03/20 Pneumococcal Conjugate Vacc, 13 Valent (Prevnar) 03/28/2015 Pneumococcal Conjugate Vacci ne, 20-valent ([id number]) 04/01/2022 Pneumococcal Polysaccharide PPV23 (Pneumovax) 05/21/2006 Seasonal [...] Telephone Encounter - Bobbi Fitch LPN - 08/29/2022 9:48 AM EST Letter signed by Dr. Pinto. Faxed to number requested. Confirmation received. Patient's daughter notified. * Telephone Encounter - Bobbi Fitch LPN - 08/28/2022 3:31 PM EST Letter prepared and printed. Placed on Dr. Pinto's desk for review and signature. * Telephone Encounter - Marcela Pinto MD - 08/22/2022 4:17 PM EST Noted. Can type a letter staing she is under our care and list the medical problems including COPD, recurrent diverticulitis, Type 2 DM, subclinical hyperthyroidism, Chronic kidney disease, hyperlipidemia.GERD, noctural hypoxemia. Thanks. * Telephone Encounter - Nicole Saeed LPN - 08/22/2022 12:08 PM EST Patient is calling. Said she needs proof that she has health problems. Said she is trying to get Medicaid and needs a letter faxed to them saying what her medical problems are. Fax is [phone] Case record number is [id number] and it has to be on the letter. Please advise. Asking for it to be done as soon as possible. documented in this encounter Plan of Treatment Upcoming Encounters Date Type Specialty Care Team Description 09/09/2022 Imaging Radiology 09/11/2022 Office Visit General Surgery Dionte Snyder MD [address] [place] [address] 09/24/2022 Office Visit Orthopedics Eliezer Gifford, DO [address] [place] [phone] 10/10/2022 Office Visit Internal Medicine Marcela Pinto MD [address] [place] [address] 11/04/2022 Office Visit Hematology Oncology [facility] [address] [facility] [id number] 01/03/2023 Office Visit Cardiology Hammad Lopez, [address] [place] [address] Health Maintenance Due Date Last Done Comments [...] Additional history exists CKD PHOS USE SMARTSET 87617 08/05/202307/14, 02/19/2022, 03/09/2021, Additional history exists O2 ASSESSMENT COMPLETED IN PAST YEAR FOR COPD 08/15/2023 08/15/2022 CKD HGB USE SMARTSET 80838 08/19/202308/19, 08/12/2022, 08/06/2022, Additional history exists DXA [...] daniel occurred with: Not Discussed Care Teams Lockstitch Zipper Setter Relationship Specialty Start Date End Date Marcela Pinto MD [address] [facility] [place] [address] PCP - General Internal Medicine 08/04/14 documented as of this encounter
--- OUTSIDE RECORDS SUMMARY | 2023-06-18 02:36 | External Medical Summary | Summary of Care ---
Author Name Unknown Organization [place] [address] Care Team Providers Care Lace Burn Out Tender Name Role Phone Marcela Pinto MD Primary Care Provider + Reason for Visit * Reason Onset Date Comments Letter Requests 08/22/2022 Encounter Details Date Type Department Care Team Description 08/22/2022 Telephone General Internal Medicine [facility] [place] [address] [facility] [address] Marcela Pinto MD [address] [facility] [place] [address] Letter Requests Allergies Active Allergy Reactions Severity Noted Date Comments Valsartan 07/10/2010 Enalapril 05/21/2006 Escitalopram Oxalate Nausea/vomiting 10/11/2009 Nauseated Iodinated Diagnostic Agents Nausea/vomiting 05/2010 IV Contrast Iodine Hives 12/18/2009 IV Contrast Metoprolol Tartrate 11/18/2006 Made pulse low [place] Oil-Black Currant-Vit E 07/10/2010 Verapamil 03/21/2004 Bupropion [...] Respimat 1.25 MCG/ACT Inhalation Aerosol Solution (Tiotropium [place] Monohydrate) Inhale by mouth 2 Puffs daily [...] disorder with single episode, in partial remission ([facility]),HECTOR (generalized anxiety disorder) TAKE 1 TABLET BY MOUTH EVERY DAY IN THE MORNING 90 Tablet 1 06/12/2022 Active Omeprazole 20 MG Oral Capsule Delayed Release (PriLOSEC)Indication s:Ischemic colitis ([facility]) TAKE 1 CAPSULE BY MOUTH [...] with reduced ejection fraction and diastolic dysfunction ([facility]),NICM (nonischemic cardiomyopathy) ([facility]),Presence of Watchman left atrial appendage [...] Hypoxemia 10/08/2011 10/30/2015 Genetic Sleep Disorder Research Other*[id number] 07/25/2011 05/15/2016 COPD, moderate 07/19/2011 07/28/2019 Overview: [...] mRNA, LNP-s, No Pre serve, 2-Dose Series ([employer]) 08/21/2021,12/22/2020,2020 COVID-19, LNP-s, No Preserve , Tyler-sucrose, Ages 12+ (Pfizer) 04/16/2022 Hepatitis B, 20+ yrs 10/01/2017,04/21/2017,03/20 Pneumococcal Conjugate Vacc, 13 Valent (Prevnar) 03/28/2015 Pneumococcal Conjugate Vacci ne, 20-valent ([id number]) 04/01/2022 Pneumococcal Polysaccharide PPV23 (Pneumovax) 05/21/2006 Seasonal [...] Telephone Encounter - Marcela Pinto MD - 08/29/2022 9:52 PM EST Noted. * Telephone Encounter - Bobbi Fitch LPN [...] what her medical problems are. Fax is [phone] Case record number is [id number] and it has to be on the letter. Please advise. Asking for it to be done as soon as possible. documented in this encounter Plan of Treatment Upcoming Encounters Date Type Specialty Care Team Description 09/09/2022 Imaging Radiology 09/11/2022 Office Visit General Surgery Dionte Snyder MD [address] [place] [address] 09/24/2022 Office Visit Orthopedics Eliezer Gifford, DO [address] [place] [address] 10/10/2022 Office Visit Internal Medicine Marcela Pinto MD 200 [facility] [place] [address] 11/04/2022 Office Visit Hematology Oncology Ida Cueva CRNP [address] [facility] [place] [phone] 01/03/2023 Office Visit Cardiology Hammad Lopez, DO [address] [place] [address] Health Maintenance Due Date Last Done Comments [...] Additional history exists CKD PHOS USE SMARTSET 73567 08/05/202307/14, 02/19/2022, 03/09/2021, Additional history exists O2 ASSESSMENT COMPLETED IN PAST YEAR FOR COPD 08/15/2023 08/15/2022 CKD HGB USE SMARTSET 28316 08/19/202308/19, 08/12/2022, 08/06/2022, Additional history exists DXA [...] daniel occurred with: Not Discussed Care Teams Lace Burn Out Tender Relationship Specialty Start Date End Date Marcela Pinto MD [address] [facility] [place] [address] PCP - General Internal Medicine 08/04/14 documented as of this encounter
--- OUTSIDE RECORDS SUMMARY | 2023-06-18 02:36 | External Medical Summary | Summary of Care ---
Author Name Unknown Organization [place] [address] Care Team Providers Care Mastic Sprayer Name Role Phone Marcela Pinto MD Primary Care Provider + Reason for Visit * Reason Onset Date Comments Order Request 08/20/2022 Encounter Details Date Type Department Care Team Description 08/20/2022 Telephone Infectious Disease, [place] [address] [id number] [facility] [address] [place] [address] Order Request Allergies Active Allergy Reactions Severity Noted Date Comments Valsartan 07/10/2010 Enalapril 05/21/2006 Escitalopram Oxalate Nausea/vomiting 10/11/2009 Nauseated Iodinated Diagnostic Agents Nausea/vomiting 05/2010 IV Contrast Iodine Hives 12/18/2009 IV Contrast Metoprolol Tartrate 11/18/2006 Made pulse low [place] Oil-Black Currant-Vit E 07/10/2010 Verapamil 03/21/2004 Bupropion Hcl 10/30/2009 Makes pt sick in the stomach documented as of this encounter (statuses as of 08/21/2022) Medications Medication Sig Dispensed Refills Start Date [...] Respimat 1.25 MCG/ACT Inhalation Aerosol Solution (Tiotropium [place] Monohydrate) Inhale by mouth 2 Puffs daily . 0 Active Spironolactone 25 MG Oral Tablet (Aldactone) Take by mouth 0.5 Tablets once a day on Friday, Friday, and Friday only . 45 Tablet 3 12/28/2021 Active Atorvastatin Calcium 40 MG Oral Tablet (Lipitor) Take by mouth 1 Tablet in the morning. 100 Tablet 3 12/27/2021 Active Ipratropium-Albuter ol 20-100 MCG/ACT Inhalation Aerosol [...] single episode, in partial remission ([facility]),HECTOR (generalized anxiety disorder) TAKE 1 TABLET BY MOUTH EVERY DAY IN THE MORNING 90 Tablet 1 06/12/2022 Active Omeprazole 20 MG Oral Capsule Delayed Release (PriLOSEC)Indicatio ns:Ischemic colitis ([facility]) TAKE 1 CAPSULE BY MOUTH TWICE A [...] 5 mg in the morning. 0 Active ertapenem INJ IV (AMBULATORY) Administer intravenously 1 g in the morning for 24 days. 24 g 0 07/29/2022 2 Active HYDROcodone-Acetami nophen 5-325 MG Oral TabletIndications:G eneralized osteoarthritis Take by mouth 1 Tablet every 6 hours as needed for Pain, Mild. 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 ([facility]),NICM (nonischemic cardiomyopathy) ([facility]),Presence of Watchman left atrial appendage closure device [...] EVERY DAY 90 Tablet 3 08/19/2022 Active documented as of this encounter (statuses as of 08/21/2022) Active Problems Problem Noted Date Protein-calorie malnutrition [...] as of this encounter (statuses as of 08/21/2022) Resolved Problems Problem Noted Date Resolved Date [...] Hypoxemia 10/08/2011 10/30/2015 Genetic Sleep Disorder Research Other*[id number] 07/25/2011 05/15/2016 COPD, moderate 07/19/2011 07/28/2019 Overview: [...] as of this encounter (statuses as of 08/21/2022) Immunizations Name Administration Dates Next Due COVID-19 mRNA, LNP-s, No Pre serve, 2-Dose Series ([employer]) 08/21/2021,12/22/2020,2020 COVID-19, LNP-s, No Preserve , Tyler-sucrose, Ages 12+ (Pfizer) 04/16/2022 Hepatitis B, 20+ yrs 10/01/2017,04/21/2017,03/20 Pneumococcal Conjugate Vacc, 13 Valent (Prevnar) 03/28/2015 Pneumococcal Conjugate Vacci ne, 20-valent ([id number]) 04/01/2022 Pneumococcal Polysaccharide PPV23 (Pneumovax) 05/21/2006 Seasonal [...] Telephone Encounter - Shelly Ott LPN - 08/21/2022 2:[address] order entered today by internal med MD. NN will watch for results, Shelly Ott LPN Nurse Navigator ID * Telephone Encounter - Nellie Mckay RP - 08/20/2022 9:13 AM EST Notified by inpatient ID pharmacist of voicemail left by conner Bates at [facility] inquiring about end of therapy plans for ertapenem - contact number for update: [phone]. Per OPAT note, tentative end date 08/22/[address] abdomen to assess improvement of intraabdominal infection. It appears CT imaging may need to be ordered. Routing to ID nurse navigator, ID physician. Nellie Mckay RP, PharmD, BCPS [facility] Clinical Pharmacist, Antimicrobial Stewardship/Infectious Disease [facility], [place] 08/20/2022, 9:18 AM documented in this encounter Plan of Treatment Upcoming Encounters Date Type Specialty Care Team Description 09/11/2022 Office Visit General Surgery Dionte Snyder MD [address] [place] [address] 09/24/2022 Office Visit Orthoped[facility] Gifford[facility] [address] [facility] [address] 10/10/2022 Office Visit Internal Medicine Marcela Pinto MD [address] [place] [address] 11/04/2022 Office Visit Hematology Oncology Ida Cueva CRNP [address] [place] [address] 01/03/2023 Office Visit Cardiology Hammad Lopez, DO [address] [facility] [place] [address] Health Maintenance Due Date Last Done Comments [...] Additional history exists CKD PHOS USE SMARTSET 16380 08/05/202307/14, 02/19/2022, 03/09/2021, Additional history exists O2 ASSESSMENT COMPLETED IN PAST YEAR FOR COPD 08/15/2023 08/15/2022 CKD HGB USE SMARTSET 01442 08/19/202308/19, 08/12/2022, 08/06/2022, Additional history exists DXA [...] daniel occurred with: Not Discussed Care Teams Mastic Sprayer Relationship Specialty Start Date End Date Marcela Pinto MD [address] [place] [address] PCP - General Internal Medicine 08/04/14 documented as of this encounter
--- OUTSIDE RECORDS SUMMARY | 2023-06-18 02:36 | External Medical Summary | Summary of Care ---
Author Name Unknown Organization [place] [address] Care Team Providers Care Horticultural Specialty Grower Name Role Phone Marcela Pinto MD Primary Care Provider + Reason for Referral * Precert (Within 10 days (routine)) - Authorized Specialty Diagnoses / Procedures Referred By Contac t Referred To Contact Radiology Diagnoses Colonic diverticular abscess Procedures CT ABD/PELVIS W IV AND W ORAL CONTRAST Marcela Pinto MD [address] [facility] [place] [address] Referral ID Status Reason Start Date Expiration Date V isits Requested Visits Authorized [id number] Authorized 08/21/2022 999 999 Reason for Visit * Reason Onset Date Comments Advice 08/20/2022 Encounter Details Date Type Department Care Team Description 08/20/2022 Telephone General Internal Medicine Ash[address] Rom[address] [place] [address] [place] [address] Marcela Pinto MD [address] [place] [address] Advice Allergies Active Allergy Reactions Severity Noted Date Comments Valsartan 07/10/2010 Enalapril 05/21/2006 Escitalopram Oxalate Nausea/vomiting 10/11/2009 Nauseated Iodinated Diagnostic Agents Nausea/vomiting 05/2010 IV Contrast Iodine Hives 12/18/2009 IV Contrast Metoprolol Tartrate 11/18/2006 Made pulse low [place] Oil-Black Currant-Vit E 07/10/2010 Verapamil 03/21/2004 Bupropion Hcl 10/30/2009 Makes pt sick in the stomach documented as of this encounter (statuses as of 08/22/2022) Medications Medication Sig Dispensed Refills Start Date [...] Respimat 1.25 MCG/ACT Inhalation Aerosol Solution (Tiotropium [place] Monohydrate) Inhale by mouth 2 Puffs daily [...] for 24 days. 24 g 0 07/29/2022 08/22/20 22 Active HYDROcodone-Acetami nophen 5-325 MG Oral TabletIndications:G eneralized osteoarthritis Take by mouth 1 Tablet every 6 hours as needed for Pain, Mild. 120 Tablet 0 08/08/2022 Active Glimepiride 2 MG Oral Tablet (Amaryl) TAKE 1 TABLET BY MOUTH EVERY DAY WITH BREAKFAST 90 Tablet 1 08/09/2022 Active Metoprolol Succinate ER 25 MG Oral Tablet Extended Release 24 Hour (toPROL XL)Indications:Filing And Polishing Supervisor akin heart failure with reduced ejection fraction [...] scheduled dye 3 Tablet 0 08/21/2022 Active diphenhydrAMINE HCl 50 MG Oral Capsule (Benadryl)Indicatio ns:Colonic diverticular abscess Take 1 Capsule (50 mg) by mouth once for 1 dose. Give one hour prior to the imaging study. 1 Capsule 0 08/21/2022 08/21/20 22 documented as of this encounter (statuses as of 08/22/2022) Active Problems Problem Noted Date Protein-calorie malnutrition [...] as of this encounter (statuses as of 08/22/2022) Resolved Problems Problem Noted Date Resolved Date [...] Hypoxemia 10/08/2011 10/30/2015 Genetic Sleep Disorder Research Other*[id number] 07/25/2011 05/15/2016 COPD, moderate 07/19/2011 07/28/2019 Overview: [...] as of this encounter (statuses as of 08/22/2022) Immunizations Name Administration Dates Next Due COVID-19 mRNA, LNP-s, No Pre serve, 2-Dose Series (Genaps[employer]) 08/21/2021,12/22/2020,2020 COVID-19, LNP-s, No Preserve , Tyler-sucrose, Ages 12+ (Pfizer) 04/16/2022 Hepatitis B, 20+ yrs 10/01/2017,04/21/2017,03/20 Pneumococcal Conjugate Vacc, 13 Valent (Prevnar) 03/28/2015 Pneumococcal Conjugate Vacci ne, 20-valent ([id number]) 04/01/2022 Pneumococcal Polysaccharide PPV23 (Pneumovax) 05/21/2006 Seasonal [...] Encounter - Marcela Pinto MD - 08/22/2022 4:05 PM EST I would get an opinion from ID provider before removing the PICC line as per recommended by Dr. Kisha Byrne . See the note from ID from 08/01/22. Recommendation was not to remove the line until input from ID. I have send a message through Ask A doc too. Dr. Byrne: would appreciate your input on removal of PICC line for this patient. Hx of recurrent diverticulitis, abcess, had drainage and finished her Ertapenem . She is not scheduled for CT abd until end of this month and we are working on getting it sooner. Scheduling: can we try to get sooner appointment for CT Abd so we can decide on removal of PICC line. THis was suggested by ID last month too. Thanks. * Telephone Encounter - JORDAN Melton - 08/21/2022 3:35 PM EST Marisa from [facility] called to verify pic line removal. Relayed message from primary. * Addendum Note - Marcela Pinto MD - 08/21/2022 11:09 AM ESTAddended by: MARCELA PINTO on: 08/21/2022 11:09 AM Modules accepted: Orders, SmartSet * Telephone Encounter - Marcela Pinto MD - 08/21/2022 11:01 AM EST Noted. Reviewed last ID note from 08/01/[address] Byrne. 1. Needs repeat CT abd pelvis. Order is in, help with scheduling. 2. End date for an antibiotic is 08/22/22 so can stop an antibiotic as far as no fever and s/s muchbetter but do not remove the PICC line until CT done and hear back from ID for the next step. 3. Needs ID follow up, televideo is okay. Have seen Dr. Wesly Byrne last month on 08/01 and he wantd to see her back in 2-3 weeks. 4. Keep visit with surgery for end of this month. Thanks * Telephone Encounter - Angelina Linder LPN - 08/21/2022 9:14 AM EST Spoke with Raissa from [facility]. IV ABX ordered until tomorrow. They can not supply any more supplies after tomorrow. [facility] needs extension orders or DC orders. Order could be to DC ABX and maintain IV line per protocol. ID encounter from Nellie Mckay RPH yesterday says: Notified by inpatient ID pharmacist of voicemail left by conner Bates at [facility] inquiring about end of therapy plans for ertapenem - contact number for update: [phone]. Per OPAT note, tentative end date 08/22/[address] abdomen to assess improvement of intraabdominal infection. It appears CT imaging may need to be ordered. Routing to ID nurse navigator, ID physician. Nellie Mckay RPh, PharmD, BCPS [facility] Clinical Pharmacist, Antimicrobial Stewardship/Infectious Disease [facility] 08/20/2022, 9:18 AM Please advise. * Telephone Encounter - JORDAN Devries - 08/21/2022 9:12 AM EST Reason for patient's call: Requesting to speak nurse Caller was transferred to Angelina at the nurse line. * Telephone Encounter - Teresita Raymundo LPN - 08/21/2022 8:28 AM EST See TE from 08/20/22 - sent to ID * Telephone Encounter - CRISTIANO Solis - 08/20/2022 8:22 AM EST Chart well home health calling to ask if the Ertapenem iv will finish on time or will they need to send more medication. If it does finish, there needs to be orders for Home Health to remove the IV access Please call [facility] at [phone] Please advise Thank you, Anastasiia Oleary, [facility] Hunting Sales Associate [facility] 08/20/2022,8:28 AM documented in this encounter Plan of Treatment Upcoming Encounters Date Type Specialty Care Team Description 09/09/2022 Imaging Radiology 09/11/2022 Office Visit General Surgery Dionte Snyder MD [address] [place] [address] 09/24/2022 Office Visit Orthopedics Eliezer Gifford, DO [address] [facility] [place] [address] 10/10/2022 Office Visit Internal Medicine Marcela Pinto MD [address] [place] [address] 11/04/2022 Office Visit Hematology Oncology Ida Cueva CRNP [address] [facility] [place] [address] 01/03/2023 Office Visit Cardiology Hammad Lopez, DO [address] [place] [address] Scheduled Orders Name Type Priority Associated Diagnoses Orde r Schedule CT ABD/PELVIS W IV AND W ORAL CONTRAST Medical Imaging Routine Colonic diverticular abscess Expected: 08/21/2022, Expires: 09/20/2023 Health Maintenance Due Date Last Done Comments [...] Additional history exists CKD PHOS USE SMARTSET 21323 08/05/202307/14, 02/19/2022, 03/09/2021, Additional history exists O2 ASSESSMENT COMPLETED IN PAST YEAR FOR COPD 08/15/2023 08/15/2022 CKD HGB USE SMARTSET 73121 08/19/202308/19, 08/12/2022, 08/06/2022, Additional history exists DXA [...] as of this encounter Visit Diagnoses Diagnosis Colonic diverticular abscess- Primary Abscess of intestine documented in this encounter Advance Directives Latest [...] daniel occurred with: Not Discussed Care Teams Horticultural Specialty Grower Relationship Specialty Start Date End Date Marcela Pinto MD [address] [facility] [place] [address] PCP - General Internal Medicine 08/04/14 documented as of this encounter
--- OUTSIDE RECORDS SUMMARY | 2023-06-18 02:36 | External Medical Summary | Summary of Care ---
Author Name Unknown Organization [place] [address] Care Team Providers Care Chairman Of The Board Name Role Phone Marcela Pinto MD Primary Care Provider + Reason for Visit * Reason Comments eRx-Medication Refill Encounter Details Date Type Department Care Team Description 09/07/2022 Refill General Internal Medicine [facility] [address] [facility] [place] [address] Marcela Pinto MD [address] [place] [address] Hyperthyroidism; Asthma with severity to be determined; COPD, moderate ([facility]) Allergies Active Allergy Reactions Severity Noted Date Comments Valsartan 07/10/2010 Enalapril 05/21/2006 Escitalopram Oxalate Nausea/vomiting 10/11/2009 Nauseated Iodinated Diagnostic Agents Nausea/vomiting 05/2010 IV Contrast Iodine Hives 12/18/2009 IV Contrast Metoprolol Tartrate 11/18/2006 Made pulse low [place] Oil-Black Currant-Vit E 07/10/2010 Verapamil 03/21/2004 Bupropion Hcl 10/30/2009 Makes pt sick in the stomach documented as of this encounter (statuses as of 09/10/2022) Medications Medication Sig Dispensed Refills Start Date [...] Respimat 1.25 MCG/ACT Inhalation Aerosol Solution (Tiotropium [place] Monohydrate) Inhale by mouth 2 Puffs daily [...] FOR NAUSEA 60 Tablet 5 2 Active Furosemide 40 MG Oral Tablet (Lasix) Take by mouth 1 Tablet in the morning AND 1 Tablet before bedtime. 60 Tablet 6 2 Active Polyethylene Glycol 3350 17 GM [...] with reduced ejection fraction and diastolic dysfunction ([facility]),NICM (nonischemic cardiomyopathy) ([facility]),Presence of Watchman left atrial appendage [...] A DAY 12 g 1 2 Active Ipratropium-Alb[place] rol 20-100 MCG/ACT Inhalation Aerosol Solution (Combivent Respimat)Indicatio ns:Asthma with severity to be determined,COPD, moderate ([facility]) TAKE 1 PUFF BY MOUTH 4 TIMES A DAY 12 g 1 2 09/10/20 22 Discontinued documented as of this encounter (statuses as of 09/10/2022) Active Problems Problem Noted Date Protein-calorie malnutrition [...] as of this encounter (statuses as of 09/10/2022) Resolved Problems Problem Noted Date Resolved Date [...] Hypoxemia 10/08/2011 10/30/2015 Genetic Sleep Disorder Research Other*[id number] 07/25/2011 05/15/2016 COPD, moderate 07/19/2011 07/28/2019 Overview: [...] as of this encounter (statuses as of 09/10/2022) Immunizations Name Administration Dates Next Due COVID-19 mRNA, LNP-s, No Pre serve, 2-Dose Series (Pfizer) 08/21/2021,12/22/2020,2020 COVID-19, LNP-s, No Preserve , Tyler-sucrose, Ages 12+ (Pfizer) 04/16/2022 Hepatitis B, 20+ yrs 10/01/2017,04/21/2017,03/20 Pneumococcal Conjugate Vacc, 13 Valent (Prevnar) 03/28/2015 Pneumococcal Conjugate Vacci ne, 20-valent ([id number]) 04/01/2022 Pneumococcal Polysaccharide PPV23 (Pneumovax) 05/21/2006 Seasonal [...] encounter Miscellaneous Notes * Telephone Encounter - Frank Wooten [facility] - 09/10/2022 9:59 AM ESTSigned Prescriptions: Disp Refills Ipratropium-Albuterol 20-100 MCG/ACT Inhal*12 g 1 Sig: TAKE 1 PUFF BY MOUTH 4 TIMES A DAYAuthorizing Provider: MARCELA PINTO User: FRANK WOOTENRefused Prescriptions: Disp Refills methIMAzole 10 MG Oral Tablet (Tapazole) 90 Tab*1 Sig: TAKE 1TABLET BY MOUTH EVERY DAYRefused By: FRANK WOOTEN for Refusal: Other (comment below)Reason for Refusal Comment: med was d/c documented in this encounter Plan of Treatment Upcoming Encounters Date Type Specialty Care Team Description 09/11/2022 Office Visit General Surgery Dionte Snyder MD [address] [place] [address] 09/24/2022 Office Visit Orthopedics Eliezer Gifford, DO 132 [facility] [place] [address] 10/10/2022 Office Visit Internal Medicine Marcela Pinto MD [address] [place], [place] [address] 11/04/2022 Office Visit Hematology Oncology Ida Cueva CRNP [address] [place] [address] 01/03/2023 Office Visit [facility]iology Hammad Lopez, DO [address] [facility] [place] [address] Health Maintenance Due Date [...] Additional history exists CKD PHOS USE SMARTSET 23064 08/05/202307/14, 02/19/2022, 03/09/2021, Additional history exists O2 ASSESSMENT COMPLETED IN PAST YEAR FOR COPD 08/15/2023 08/15/2022 CKD HGB USE SMARTSET 96607 08/19/202308/19, 08/12/2022, 08/06/2022, Additional history exists DXA [...] without mention of thyrotoxic crisis or storm Asthma with severity to be determined COPD, [...] daniel occurred with: Not Discussed Care Teams Chairman Of The Board Relationship Specialty Start Date End Date Marcela Pinto MD [address] [facility] [place], [place] [address] PCP - General Internal Medicine 08/04/14 documented as of this encounter
--- OUTSIDE RECORDS SUMMARY | 2023-06-18 02:36 | External Medical Summary | Summary of Care ---
Author Name Unknown Organization [place] [address] Care Team Providers Care Lifestyle Director Name Role Phone Marcela Pinto MD Primary Care Provider + Reason for Referral * Precert (Within 10 days (routine)) - Authorized Specialty Diagnoses / Procedures Referred By Contac t Referred To Contact Radiology Diagnoses Colonic diverticular abscess Procedures CT ABD/PELVIS W IV AND W ORAL CONTRAST Marcela Pinto MD [address] [facility] [place] [facility] [place] [address] Referral ID Status Reason Start Date Expiration Date V isits Requested Visits Authorized [id number] Authorized 08/21/2022 999 999 Reason for Visit * Reason Onset Date Comments Advice 08/20/2022 Encounter Details Date Type Department Care Team Description 08/20/2022 Telephone General Internal Medicine Ash[place] Rom[place] [address] [place] [address] Marcela Pinto MD [address] [place] [address] Advice Allergies Active Allergy Reactions Severity Noted Date Comments Valsartan 07/10/2010 Enalapril 05/21/2006 Escitalopram Oxalate Nausea/vomiting 10/11/2009 Nauseated Iodinated Diagnostic Agents Nausea/vomiting 05/2010 IV Contrast Iodine Hives 12/18/2009 IV Contrast Metoprolol Tartrate 11/18/2006 Made pulse low [place] Oil-Black Currant-Vit E 07/10/2010 Verapamil 03/21/2004 Bupropion [...] Respimat 1.25 MCG/ACT Inhalation Aerosol Solution (Tiotropium [place] Monohydrate) Inhale by mouth 2 Puffs daily [...] Oral Tablet Extended Release 24 Hour (toPROL XL)Indications:Dietary Services Director akin heart failure with reduced ejection [...] the imaging study. 1 Capsule 0 08/21/2022 2 Active documented as of this encounter [...] Hypoxemia 10/08/2011 10/30/2015 Genetic Sleep Disorder Research Other*[id number] 07/25/2011 05/15/2016 COPD, moderate 07/19/2011 07/28/2019 Overview: [...] mRNA, LNP-s, No Pre serve, 2-Dose Series ([employer]) 08/21/2021,12/22/2020,2020 COVID-19, LNP-s, No Preserve , Tyler-sucrose, Ages 12+ (Pfizer) 04/16/2022 Hepatitis B, 20+ yrs 10/01/2017,04/21/2017,03/20 Pneumococcal Conjugate Vacc, 13 Valent (Prevnar) 03/28/2015 Pneumococcal Conjugate Vacci ne, 20-valent ([id number]) 04/01/2022 Pneumococcal Polysaccharide PPV23 (Pneumovax) 05/21/2006 Seasonal [...] Miscellaneous Notes * Telephone Encounter - JORDAN Melton - 08/21/2022 3:35 PM EST Marisa from [facility] called to verify pic line removal. Relayed [...] 9:14 AM EST Spoke with Raissa from [facility]. IV ABX ordered until tomorrow. They can not supply any more supplies after tomorrow. Mariela needs extension orders or DC orders. Order could be to DC ABX and maintain IV line per protocol. ID encounter from Nellie Mckay [facility] yesterday says: Notified by inpatient ID pharmacist of voicemail left by conner Bates at [facility] inquiring about end of therapy plans for ertapenem - contact number for update: [phone]. Per OPAT note, tentative end date 08/22/[address] abdomen to assess improvement of intraabdominal infection. It appears CT imaging may need to be ordered. Routing to ID nurse navigator, ID physician. Nellie Mckay, [facility], PharmD, BCPS [facility] Clinical Pharmacist, Antimicrobial Stewardship/Infectious Disease [facility] 08/20/2022, 9:18 AM Please advise. * Telephone [...] to remove the IV access Please call [facility] at [phone] Please advise Thank you, Anastasiia Oleary CPhT [employer] Re[employer] [facility] 08/20/2022,8:28 AM documented in this encounter Plan of Treatment Upcoming Encounters Date Type Specialty Care Team Description 09/11/2022 Office Visit General Surgery Dionte Snyder MD [address] [place] [address] 09/24/2022 Office Visit Orthopedics Eliezer Gifford, DO [address] [facility] [place] [address] 10/10/2022 Office Visit Internal Medicine Marcela Pinto MD 200 [facility], [place] [address] 11/04/2022 Office Visit Hematology Oncology Ida Cueva CRNP [address] [place] [address] 01/03/2023 Office Visit Cardiology Hammad Lopez, DO [address] [place] [address] Scheduled Orders Name Type Priority Associated Diagnoses [...] Additional history exists CKD PHOS USE SMARTSET 83756 08/05/202307/14, 02/19/2022, 03/09/2021, Additional history exists O2 ASSESSMENT COMPLETED IN PAST YEAR FOR COPD 08/15/2023 08/15/2022 CKD HGB USE SMARTSET 92287 08/19/202308/19, 08/12/2022, 08/06/2022, Additional history exists DXA [...] daniel occurred with: Not Discussed Care Teams Lifestyle Director Relationship Specialty Start Date End Date Marcela Pinto MD [address] [place] [address] PCP - General Internal Medicine 08/04/14 documented as of this encounter
--- OUTSIDE RECORDS SUMMARY | 2023-06-18 02:36 | External Medical Summary | Summary of Care ---
Author Name Unknown Organization [place] [address] Care Team Providers Care Board Machine Set Up Operator Name Role Phone Marcela Pinto MD Primary Care Provider + Reason for Referral * Precert (Within 10 days (routine)) - Authorized Specialty Diagnoses / Procedures Referred By Contac t Referred To Contact Radiology Diagnoses Colonic diverticular abscess Procedures CT ABD/PELVIS W IV AND W ORAL CONTRAST Marcela Pinto MD [address] [facility] [place] [address] Referral ID Status Reason Start Date Expiration Date V isits Requested Visits Authorized [id number] Authorized 08/21/2022 999 999 Reason for Visit * Reason Onset Date Comments Advice 08/20/2022 Encounter Details Date Type Department Care Team Description 08/20/2022 Telephone General Internal Medicine [facility] [place] [address] [place] [address] Marcela Pinto MD [address] [place] [address] Advice Allergies Active Allergy Reactions Severity Noted Date Comments Valsartan 07/10/2010 Enalapril 05/21/2006 Escitalopram Oxalate Nausea/vomiting 10/11/2009 Nauseated Iodinated Diagnostic Agents Nausea/vomiting 05/2010 IV Contrast Iodine Hives 12/18/2009 IV Contrast Metoprolol Tartrate 11/18/2006 Made pulse low [place] Oil-Black Currant-Vit E 07/10/2010 Verapamil 03/21/2004 Bupropion [...] Respimat 1.25 MCG/ACT Inhalation Aerosol Solution (Tiotropium [place] Monohydrate) Inhale by mouth 2 Puffs daily [...] Oral Tablet Extended Release 24 Hour (toPROL XL)Indications:Radioisotope Technologist akin heart failure with reduced ejection fraction [...] Hypoxemia 10/08/2011 10/30/2015 Genetic Sleep Disorder Research Other*[id number] 07/25/2011 05/15/2016 COPD, moderate 07/19/2011 07/28/2019 Overview: [...] mRNA, LNP-s, No Pre serve, 2-Dose Series (ThetaRay) 08/21/2021,12/22/2020,2020 COVID-19, LNP-s, No Preserve , Tyler-sucrose, Ages 12+ (Pfizer) 04/16/2022 Hepatitis B, 20+ yrs 10/01/2017,04/21/2017,03/20 Pneumococcal Conjugate Vacc, 13 Valent (Prevnar) 03/28/2015 Pneumococcal Conjugate Vacci ne, 20-valent ([id number]) 04/01/2022 Pneumococcal Polysaccharide PPV23 (Pneumovax) 05/21/2006 Seasonal [...] Telephone Encounter - Bobbi Fitch LPN - 08/22/2022 5:08 PM EST Contacted [facility] to let them know we are going to wait to hear from ID following thepatient's CT scan to decide on the removal of the PICC line. Spoke with the patient's daughter, Stephani. Let her know Nina needs a follow up appointment with ID within the next couple weeks and that the PICC line will stay in until after the CT scan. She was aware of that. Scheduling-please contact Stephani to schedule ID follow up appointment. Per 08/01 encounter, he wanted to see her 2-4 weeks after that. Also, I think the CT scan was scheduled for 09/[address] Jarrell wanted it scheduled near the 4 week ashutosh. FYI * Telephone Encounter - Marcela Pinto MD [...] - 08/21/2022 3:35 PM EST Marisa from [facility] called to verify pic line removal. [...] 9:14 AM EST Spoke with Raissa from [facility]. IV ABX ordered until tomorrow. They can not supply any more supplies after tomorrow. [facility] needs extension orders or DC orders. Order could be to DC ABX and maintain IV line per protocol. ID encounter from Nellie Mckay, [facility] yesterday says: Notified by inpatient ID pharmacist of voicemail left by conner Bates at [facility] inquiring about end of therapy plans for ertapenem - contact number for update: [phone]. Per OPAT note, tentative end date 08/22/[address] abdomen to assess improvement of intraabdominal infection. It appears CT imaging may need to be ordered. Routing to ID nurse navigator, ID physician. Nellie Mckay, [facility], PharmD, [facility] Clinical Pharmacist, Antimicrobial Stewardship/Infectious Disease [facility] 08/20/2022, 9:18 AM Please advise. [...] to remove the IV access Please call [facility] at [phone] Please advise Thank you, Anastasiia Oleary, [facility] Cream Ripener II [facility] Telepharmacy 08/20/2022,8:28 AM documented in this encounter Plan of Treatment Upcoming Encounters Date Type Specialty Care Team Description 09/09/2022 Imaging Radiology 09/11/2022 Office Visit General Surgery Dionte Snyder MD [address] [facility] [place] [address] 09/24/2022 Office Visit Orthopedics Eliezer Gifford, DO [address] [facility] [place] [address] 10/10/2022 Office Visit Internal Medicine Marcela Pinto MD [address] [place] [address] 11/04/2022 Office Visit Hematology Oncology Ida Cueva CRNP [address] [place] [address] 01/03/2023 Office Visit Cardiology Hammad Lopez, DO [address] [place] [address] Scheduled Orders Name Type Priority Associated Diagnoses [...] Additional history exists CKD PHOS USE SMARTSET 22514 08/05/202307/14, 02/19/2022, 03/09/2021, Additional history exists O2 ASSESSMENT COMPLETED IN PAST YEAR FOR COPD 08/15/2023 08/15/2022 CKD HGB USE SMARTSET 31425 08/19/202308/19, 08/12/2022, 08/06/2022, Additional history exists DXA [...] daniel occurred with: Not Discussed Care Teams Board Machine Set Up Operator Relationship Specialty Start Date End Date Marcela Pinto MD [address] [facility] [place] [address] PCP - General Internal Medicine 08/04/14 documented as of this encounter
--- OUTSIDE RECORDS SUMMARY | 2023-06-18 02:36 | External Medical Summary | Summary of Care ---
Author Name Unknown Organization [place] [address] Care Team Providers Care Tankage Supervisor Name Role Phone Marcela Pinto MD Primary Care Provider + Encounter Details Date Type Department Care Team Description 08/01/2022 Telephone Infectious Disease, [place] [address] [place] [address] Chavez Jarrell MD [address] [place] [address] Allergies Active Allergy Reactions Severity Noted Date Comments Valsartan 07/10/2010 Enalapril 05/21/2006 Escitalopram Oxalate Nausea/vomiting 10/11/2009 Nauseated Iodinated Diagnostic Agents Nausea/vomiting 05/2010 IV Contrast Iodine Hives 12/18/2009 IV Contrast Metoprolol Tartrate 11/18/2006 Made pulse low [place] Oil-Black Currant-Vit E 07/10/2010 Verapamil 03/21/2004 Bupropion [...] 1.25 MCG/ACT Inhalation Aerosol Solution (Tiotropium [place] Monohydrate) Inhale by mouth 2 Puffs daily . 0 Active Spironolactone 25 MG Oral Tablet (Aldactone) Take by mouth 0.5 Tablets once a day on Friday, Friday, and Friday only . 45 Tablet 3 12/29/19 22 Active Atorvastatin Calcium 40 MG Oral Tablet (Lipitor) Take by mouth 1 Tablet in the morning. 100 Tablet 3 12/28/19 22 Active Dicyclomine HCl 20 MG Oral Tablet [...] single episode, in partial remission ([facility]),HECTOR (generalized anxiety disorder) TAKE 1 TABLET BY MOUTH EVERY DAY IN THE MORNING 90 Tablet 1 06/12/20 22 Active Omeprazole 20 MG Oral Capsule Delayed Release (PriLOSEC)Indicati ons:Ischemic colitis ([facility]) TAKE 1 CAPSULE BY MOUTH TWICE A DAY 180 Capsule 3 06/14/20 22 Active Ondansetron 8 MG Oral Tablet Disintegrating (Zofran) DISSOLVE 1 TABLET ON TONGUE EVERY 8 HOURS NEEDED FOR NAUSEA 60 Tablet 5 06/14/20 22 Active Furosemide 40 MG Oral Tablet (Lasix) Take by mouth 1 Tablet in the morning AND 1 Tablet before bedtime. 60 Tablet 6 06/25/20 22 Active Polyethylene Glycol 3350 17 GM Oral Packet (Miralax) Take by mouth 17 g 2 times a day as needed for Constipation. 0 Active methIMAzole 5 MG Oral Tablet (Tapazole) Take by mouth 5 mg in the morning. 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 135 Tablet 3 10/04/20 21 022 Discontinued Ipratropium-[place] rol 20-100 MCG/ACT Inhalation Aerosol Solution (Combivent Respimat)Indicatio ns:Asthma with severity to be determined,COPD, moderate ([facility]) TAKE 1 PUFF BY MOUTH 4 TIMES [...] Tablet 0 05/20/20 22 022 Discontinued(Re fill) ertapenem INJ IV (AMBULATORY) [...] Hypoxemia 10/08/2011 10/30/2015 Genetic Sleep Disorder Research Other*[id number] 07/25/2011 05/15/2016 COPD, moderate 07/19/2011 07/28/2019 Overview: [...] mRNA, LNP-s, No Pre serve, 2-Dose Series ([employer]) 08/21/2021,12/22/2020,2020 COVID-19, LNP-s, No Preserve , Tyler-sucrose, Ages 12+ (Pfizer) 04/16/2022 Hepatitis B, 20+ yrs 10/01/2017,04/21/2017,03/20 Pneumococcal Conjugate Vacc, 13 Valent (Prevnar) 03/28/2015 Pneumococcal Conjugate Vacci ne, 20-valent ([id number]) 04/01/2022 Pneumococcal Polysaccharide PPV23 (Pneumovax) 05/21/2006 Seasonal [...] 08/01/2022 8:12 AM EDT Pt discharged to [facility] [phone] FINAL IMPRESSION AND RECOMMENDATIONS: Syndrome Intraabdominal infection [...] General Surgery Dionte Snyder MD [address] [place] [address] 09/24/2022 Office Visit Orthopedics Eliezer Gifford, DO [address] [place] [address] 10/10/2022 Office Visit Internal Medicine Marcela Pinto MD [address] [place] [address] 11/04/2022 Office Visit Hematology Oncology Ida Cueva CRNP [address] [facility] [place] [id number] 01/03/2023 Office Visit Cardiology Hammad Lopez, DO [address] [place] [address] Health Maintenance Due Date Last Done Comments [...] Additional history exists CKD PHOS USE SMARTSET 88521 08/05/202307/14, 02/19/2022, 03/09/2021, Additional history exists O2 ASSESSMENT COMPLETED IN PAST YEAR FOR COPD 08/15/2023 08/15/2022 CKD HGB USE SMARTSET 26479 08/19/202308/19, 08/12/2022, 08/06/2022, Additional history exists DXA [...] daniel occurred with: Not Discussed Care Teams Tankage Supervisor Relationship Specialty Start Date End Date Marcela Pinto MD [address] [place] [address] PCP - General Internal Medicine 08/04/14 documented as of this encounter
--- OUTSIDE RECORDS SUMMARY | 2023-06-18 02:36 | External Medical Summary | Summary of Care ---
Author Name Unknown Organization [place] [address] Care Team Providers Care Graphic Design Specialist Name Role Phone Marcela Pinto MD Primary Care Provider + Encounter Details Date Type Department Care Team Description 08/01/2022 Telephone Infectious Disease, [place] [address] [place] [address] Chavez Jarrell MD [address] [place] [address] Allergies Active Allergy Reactions Severity Noted Date Comments Valsartan 07/10/2010 Enalapril 05/21/2006 Escitalopram Oxalate Nausea/vomiting 10/11/2009 Nauseated Iodinated Diagnostic Agents Nausea/vomiting 05/2010 IV Contrast Iodine Hives 12/18/2009 IV Contrast Metoprolol Tartrate 11/18/2006 Made pulse low [place] Oil-Black Currant-Vit E 07/10/2010 Verapamil 03/21/2004 Bupropion [...] Respimat 1.25 MCG/ACT Inhalation Aerosol Solution (Tiotropium [place] Monohydrate) Inhale by mouth 2 Puffs daily . 0 Active Spironolactone 25 MG Oral Tablet (Aldactone) Take by mouth 0.5 Tablets once a day on Friday, Friday, and Friday only . 45 Tablet 3 12/29/19 22 Active Atorvastatin Calcium 40 MG Oral Tablet (Lipitor) Take by mouth 1 Tablet in the morning. 100 Tablet 3 12/28/19 22 Active Ipratropium-Albute rol 20-100 MCG/ACT Inhalation Aerosol Solution (Combivent Respimat)Indicatio ns:Asthma with severity to be determined,COPD, moderate ([facility]) TAKE 1 PUFF BY MOUTH 4 TIMES A DAY 12 g 1 02/01/20 22 Active Dicyclomine HCl 20 MG Oral [...] Oral Capsule Delayed Release (PriLOSEC)Indicati ons:Ischemic colitis ([facility]) TAKE 1 CAPSULE BY MOUTH TWICE A [...] days. 24 g 0 07/29/20 22 022 Active Klor-Con M20 20 MEQ Oral Tablet Extended Release (Potassium Chloride Annalisa ER)Indications:HTN , goal below 140/90 TAKE 1 TABLET BY MOUTH EVERY DAY 90 Tablet 3 09/28/20 21 022 Discontinued Metoprolol Succinate ER 25 MG Oral Tablet Extended Release 24 Hour (toPROL XL)Indications:Chr onic 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 ([facility]),NICM (nonischemic cardiomyopathy) ([facility]),Presence of Watchman left atrial appendage closure device Take 1 tab in the morning and 1/2 tab in the evening. 135 Tablet 3 10/04/20 21 022 Discontinued Glimepiride 2 MG Oral Tablet (Amaryl) TAKE 1 TABLET BY MOUTH EVERY DAY WITH BREAKFAST 90 Tablet 1 02/08/20 22 022 Discontinued HYDROcodone-Acetam inophen 5-325 MG Oral TabletIndications: Generalized osteoarthritis Take by mouth 1 Tablet every 6 hours as needed for Pain, Mild. 120 Tablet 0 05/20/20 22 022 Discontinued(Re fill) documented as of [...] low 45%, mean 85%, <89% 6:18 hrs, SROEN 18.7 Refusing CPAP AHP Diverticulitis of colon [...] Hypoxemia 10/08/2011 10/30/2015 Genetic Sleep Disorder Research Other*[id number] 07/25/2011 05/15/2016 COPD, moderate 07/19/2011 07/28/2019 Overview: [...] mRNA, LNP-s, No Pre serve, 2-Dose Series ([employer]) 08/21/2021,12/22/2020,2020 COVID-19, LNP-s, No Preserve , Tyler-sucrose, Ages 12+ (Pfizer) 04/16/2022 Hepatitis B, 20+ yrs 10/01/2017,04/21/2017,03/20 Pneumococcal Conjugate Vacc, 13 Valent (Prevnar) 03/28/2015 Pneumococcal Conjugate Vacci ne, 20-valent ([id number]) 04/01/2022 Pneumococcal Polysaccharide PPV23 (Pneumovax) 05/21/2006 Seasonal [...] 08/01/2022 8:12 AM EDT Pt discharged to [facility] [phone] FINAL IMPRESSION AND RECOMMENDATIONS: Syndrome Intraabdominal infection [...] General Surgery Dionte Snyder MD [address] [place] [address] 09/24/2022 Office Visit Orthopedics Eliezer Gifford, DO [address] [facility] [place] [address] 10/10/2022 Office Visit Internal Medicine Marcela Pinto MD [address] [place] [address] 11/04/2022 Office Visit Hematology Oncology Ida Cueva CRNP [address] [place], [place] [phone] 01/03/2023 Office Visit Cardiology Hammad Lopez, DO [address] [place] [address] Health Maintenance Due Date Last Done Comments [...] Additional history exists CKD PHOS USE SMARTSET 88707 08/05/202307/14, 02/19/2022, 03/09/2021, Additional history exists O2 ASSESSMENT COMPLETED IN PAST YEAR FOR COPD 08/15/2023 08/15/2022 CKD HGB USE SMARTSET 67036 08/19/202308/19, 08/12/2022, 08/06/2022, Additional history exists DXA [...] daniel occurred with: Not Discussed Care Teams Graphic Design Specialist Relationship Specialty Start Date End Date Marcela Pinto MD [address] [facility] [place], [place] [address] PCP - General Internal Medicine 08/04/14 documented as of this encounter
--- OUTSIDE RECORDS SUMMARY | 2023-06-18 02:36 | External Medical Summary | Summary of Care ---
Author Name Unknown Organization [place] [address] Care Team Providers Care Ocean Freight Agent Name Role Phone Marcela Pinto MD Primary Care Provider + Reason for Visit * Reason Onset Date Comments Case Management Plan Of Care 08/27/2022 [place] le #2 post hospital discharge follow up call Encounter Details Date Type Department Care Team Description 08/27/2022 [employer] Brakeman Telephone Care Coordination [address] [place] [address] Sigrid Montano RN [address] [place] [address] Case Management Plan Of Care (Week #2 post... Allergies Active Allergy Reactions Severity Noted Date Comments Valsartan 07/10/2010 Enalapril 05/21/2006 Escitalopram Oxalate Nausea/vomiting 10/11/2009 Nauseated Iodinated Diagnostic Agents Nausea/vomiting 05/2010 IV Contrast Iodine Hives 12/18/2009 IV Contrast Metoprolol Tartrate 11/18/2006 Made pulse low [place] Oil-Black Currant-Vit E 07/10/2010 Verapamil 03/21/2004 Bupropion Hcl 10/30/2009 Makes pt sick in the stomach documented as of this encounter (statuses as of 08/27/2022) Medications Medication Sig Dispensed Refills Start Date [...] Respimat 1.25 MCG/ACT Inhalation Aerosol Solution (Tiotropium [place] Monohydrate) Inhale by mouth 2 Puffs daily [...] as of this encounter (statuses as of 08/27/2022) Active Problems Problem Noted Date Protein-calorie malnutrition [...] as of this encounter (statuses as of 08/27/2022) Resolved Problems Problem Noted Date Resolved Date [...] Hypoxemia 10/08/2011 10/30/2015 Genetic Sleep Disorder Research Other*[id number] 07/25/2011 05/15/2016 COPD, moderate 07/19/2011 07/28/2019 Overview: [...] as of this encounter (statuses as of 08/27/2022) Immunizations Name Administration Dates Next Due COVID-19 mRNA, LNP-s, No Pre serve, 2-Dose Series ([employer]) 08/21/2021,12/22/2020,2020 COVID-19, LNP-s, No Preserve , Tyler-sucrose, Ages 12+ (Pfizer) 04/16/2022 Hepatitis B, 20+ yrs 10/01/2017,04/21/2017,03/20 Pneumococcal Conjugate Vacc, 13 Valent (Prevnar) 03/28/2015 Pneumococcal Conjugate Vacci ne, 20-valent ([id number]) 04/01/2022 Pneumococcal Polysaccharide PPV23 (Pneumovax) 05/21/2006 Seasonal [...] Telephone Encounter - Sigrid Montano RN - 08/27/2022 3:33 PM EST Pt admitted to [facility] 07/25/22-07/29/22 d/t diverticulitis w/ intestine abscess. Discharged to [facility] w/ IV ertanpenem 1 gram IV Q day x 24 days (until 08/22/22). Transitioned from [facility] 08/08/22 w/ home infusion provided by [facility] and [facility] for nursing, PT/OT w/ [facility]. PCP appt 08/15/22. Ertapenem d/c 08/22, PICC left in until CT scan pt needs CT abd pelvis to show resolved infection -- scheduled 09/09 -- PCP trying to get scheduledsooner Per 08/01/[address] Byrne, can stop atbx as long as no fever and feeling better but do not remove PICC until CT back and reviewed by ID CT abdomen/pelvis on 09/09 Gen Surg 09/11 Enrolled in weekly x 4 weeks post discharge telehealth IVR calls starting 08/23/22 Phone call to patient for week 2 post hospital discharge follow up She reports: Feels she is still shaky on her feet side still hurts done with atbx, PICC being flushed by home health nurse and daughter denies fevers, cardiac symptoms, new breathing problems, new edema, new falls. gets sob walking far distances or activity Using a cane because she is wobbly, she is doing home PT exercises and PT is still coming in appetite is not very good (probably gets 2 meals a day), Loose stools, just once a day Voiding well Has a drain in abdomen, emptied daily, color is clear yellow, no blood or pus, not foul smelling MEDS:denies changes, states adherent, using oxygen as ordered, still taking probiotic APPTS: reviewed and will keep Red Flags reviewed Reminded pt of weekly IVR calls on Fridays at 10am and encouraged her to answer the phone CM f/u in 2-3 weeks or prn documented in this encounter Plan of Treatment Upcoming Encounters Date Type Specialty Care Team Description 09/09/2022 Imaging Radiology 09/11/2022 Office Visit General Surgery Dionte Snyder MD [address] [place] [address] 09/24/2022 Office Visit Orthopedics [facility]zer [facility]ifford[facility] [address] 10/10/2022 Office Visit Internal Medicine Marcela Pinto MD [address] [place], [place] [phone] 11/04/2022 Office Visit Hematology Oncology Ida Cueva CRNP [address] [facility] [place] [address] 01/03/2023 Office Visit Cardiology Hammad Lopez, DO [address] [place] [address] Health Maintenance Due Date Last Done Comments [...] Additional history exists CKD PHOS USE SMARTSET 69193 08/05/202307/14, 02/19/2022, 03/09/2021, Additional history exists O2 ASSESSMENT COMPLETED IN PAST YEAR FOR COPD 08/15/2023 08/15/2022 CKD HGB USE SMARTSET 07165 08/19/202308/19, 08/12/2022, 08/06/2022, Additional history exists DXA [...] daniel occurred with: Not Discussed Care Teams Ocean Freight Agent Relationship Specialty Start Date End Date Marcela Pinto MD [address] [facility], [place] [address] PCP - General Internal Medicine 08/04/14 documented as of this encounter
--- OUTSIDE RECORDS SUMMARY | 2023-06-18 02:37 | External Medical Summary | Summary of Care ---
Author Name Unknown Organization [place] [address] Care Team Providers Care Director Community Organization Name Role Phone Marcela Pinto MD Primary Care Provider + Reason for Referral * Precert (Within 10 days (routine)) - Authorized Specialty Diagnoses / Procedures Referred By Contac t Referred To Contact Radiology Diagnoses Colonic diverticular abscess Procedures CT ABD/PELVIS W IV AND W ORAL CONTRAST Marcela Pinto MD [address] [facility] [place] [address] Referral ID Status Reason Start Date Expiration Date V isits Requested Visits Authorized [id number] Authorized 08/21/2022 999 999 Reason for Visit * Reason Onset Date Comments Advice 08/20/2022 Encounter Details Date Type Department Care Team Description 08/20/2022 Telephone General Internal Medicine [facility] [place] [address] [place] [address] Marcela Pinto MD [address] [place] [address] Advice Allergies Active Allergy Reactions Severity Noted Date Comments Valsartan 07/10/2010 Enalapril 05/21/2006 Escitalopram Oxalate Nausea/vomiting 10/11/2009 Nauseated Iodinated Diagnostic Agents Nausea/vomiting 05/2010 IV Contrast Iodine Hives 12/18/2009 IV Contrast Metoprolol Tartrate 11/18/2006 Made pulse low [place] Oil-Black Currant-Vit E 07/10/2010 Verapamil 03/21/2004 Bupropion [...] Respimat 1.25 MCG/ACT Inhalation Aerosol Solution (Tiotropium [place] Monohydrate) Inhale by mouth 2 Puffs daily [...] Oral Tablet Extended Release 24 Hour (toPROL XL)Indications:Milk Vendor akin 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 failure with reduced ejection fraction [...] Hypoxemia 10/08/2011 10/30/2015 Genetic Sleep Disorder Research Other*[id number] 07/25/2011 05/15/2016 COPD, moderate 07/19/2011 07/28/2019 Overview: [...] mRNA, LNP-s, No Pre serve, 2-Dose Series ([employer]) 08/21/2021,12/22/2020,2020 COVID-19, LNP-s, No Preserve , Tyler-sucrose, Ages 12+ (Pfizer) 04/16/2022 Hepatitis B, 20+ yrs 10/01/2017,04/21/2017,03/20 Pneumococcal Conjugate Vacc, 13 Valent (Prevnar) 03/28/2015 Pneumococcal Conjugate Vacci ne, 20-valent ([id number]) 04/01/2022 Pneumococcal Polysaccharide PPV23 (Pneumovax) 05/21/2006 Seasonal [...] 9:14 AM EST Spoke with Raissa from [facility]. IV ABX ordered until tomorrow. They can not supply any more supplies after tomorrow. [facility] needs extension orders or DC orders. Order could be to DC ABX and maintain IV line per protocol. ID encounter from Nellie Mckay, [facility] yesterday says: Notified by inpatient ID pharmacist of voicemail left by conner Bates at [facility] inquiring about end of therapy plans for ertapenem - contact number for update: [phone]. Per OPAT note, tentative end date 08/22/[address] abdomen to assess improvement of intraabdominal infection. It appears CT imaging may need to be ordered. Routing to ID nurse navigator, ID physician. Nellie Mckay, [facility], PharmD, BCPS [facility] Clinical Pharmacist, Antimicrobial Stewardship/Infectious Disease [facility] 08/20/2022, 9:18 AM Please advise. [...] to remove the IV access Please call [facility] at [phone] Please advise Thank you, Anastasiia Oleary [facility] Tool Coordinator II [facility] Telepharmacy 08/20/2022,8:28 AM documented in this encounter Plan of Treatment Upcoming Encounters Date Type Specialty Care Team Description 09/11/2022 Office Visit General Surgery Dionte Snyder MD [address] [place] [address] 09/24/2022 Office Visit Orthopedics Eliezer Gifford, DO [address] [facility] [place] [address] 10/10/2022 Office Visit Internal Medicine Marcela Pinto MD [address] [place] [address] 11/04/2022 Office Visit Hematology Oncology Ida Cueva CRNP [address] [place] [address] 01/03/2023 Office Visit Cardiology Hammad Lopez, DO [address] [place] [address] Scheduled Orders Name Type Priority Associated Diagnoses [...] Additional history exists CKD PHOS USE SMARTSET 55717 08/05/202307/14, 02/19/2022, 03/09/2021, Additional history exists O2 ASSESSMENT COMPLETED IN PAST YEAR FOR COPD 08/15/2023 08/15/2022 CKD HGB USE SMARTSET 79720 08/19/202308/19, 08/12/2022, 08/06/2022, Additional history exists DXA [...] occurred with: Not Discussed Care Teams Director Community Organization Relationship Specialty Start Date End Date Marcela Pinto MD [address] [place], [place] [address] PCP - General Internal Medicine 08/04/14 documented as of this encounter
--- OUTSIDE RECORDS SUMMARY | 2023-06-18 02:37 | External Medical Summary | Summary of Care ---
Author Name Unknown Organization [place] [address] Care Team Providers Care Double End Tenon Operator Name Role Phone Marcela Pinto MD Primary Care Provider + Reason for Visit * Reason Comments eRx-Medication Refill Encounter Details Date Type Department Care Team Description 08/18/2022 Refill General Internal Medicine [facility] [address] [facility] [place] [address] Marcela Pinto MD [address] [place] [address] HTN, goal below 140/90 Allergies Active Allergy Reactions Severity Noted Date Comments Valsartan 07/10/2010 Enalapril 05/21/2006 Escitalopram Oxalate Nausea/vomiting 10/11/2009 Nauseated Iodinated Diagnostic Agents Nausea/vomiting 05/2010 IV Contrast Iodine Hives 12/18/2009 IV Contrast Metoprolol Tartrate 11/18/2006 Made pulse low [place] Oil-Black Currant-Vit E 07/10/2010 Verapamil 03/21/2004 Bupropion Hcl 10/30/2009 Makes pt sick in the stomach documented as of this encounter (statuses as of 08/19/2022) Medications Medication Sig Dispensed Refills Start Date [...] Respimat 1.25 MCG/ACT Inhalation Aerosol Solution (Tiotropium [place] Monohydrate) Inhale by mouth 2 Puffs daily . 0 Active Spironolactone 25 MG Oral Tablet (Aldactone) Take by mouth 0.5 Tablets once a day on Friday, Friday, and Friday only . 45 Tablet 3 2 Active Atorvastatin Calcium 40 MG Oral Tablet (Lipitor) Take by mouth 1 Tablet in the morning. 100 Tablet 3 2 Active Ipratropium-[place] rol 20-100 MCG/ACT Inhalation Aerosol Solution (Combivent Respimat)Indicatio ns:Asthma with severity to be determined,COPD, moderate (HCC) TAKE 1 PUFF BY MOUTH 4 TIMES A DAY 12 g 1 2 Active Dicyclomine HCl 20 MG Oral [...] single episode, in partial remission ([facility]),HECTOR (generalized anxiety disorder) TAKE 1 TABLET BY MOUTH EVERY DAY IN THE MORNING 90 Tablet 1 2 Active Omeprazole 20 MG Oral Capsule Delayed Release (PriLOSEC)Indicati ons:Ischemic colitis ([facility]) TAKE [...] morning for 24 days. 24 g 0 2 022 Active HYDROcodone-Acetam inophen 5-325 MG Oral TabletIndications: [...] ejection fraction and diastolic dysfunction ([facility]),NICM (nonischemic cardiomyopathy) ([facility]),Presence [...] EVERY DAY 90 Tablet 3 2 Active Klor-Con M20 20 MEQ Oral Tablet Extended Release (Potassium Chloride Annalisa ER)Indications:HTN , goal below 140/90 TAKE 1 TABLET BY MOUTH EVERY DAY 90 Tablet 3 1 022 Discontinued documented as of this encounter (statuses as of 08/19/2022) Active Problems Problem Noted Date Protein-calorie malnutrition [...] as of this encounter (statuses as of 08/19/2022) Resolved Problems Problem Noted Date Resolved Date [...] Hypoxemia 10/08/2011 10/30/2015 Genetic Sleep Disorder Research Other*[id number] 07/25/2011 05/15/2016 COPD, moderate 07/19/2011 07/28/2019 Overview: [...] as of this encounter (statuses as of 08/19/2022) Immunizations Name Administration Dates Next Due COVID-19 mRNA, LNP-s, No Pre serve, 2-Dose Series ([employer]) 08/21/2021,12/22/2020,2020 COVID-19, LNP-s, No Preserve , Tyler-sucrose, Ages 12+ (Pfizer) 04/16/2022 Hepatitis B, 20+ yrs 10/01/2017,04/21/2017,03/20 Pneumococcal Conjugate Vacc, 13 Valent (Prevnar) 03/28/2015 Pneumococcal Conjugate Vacci ne, 20-valent ([id number]) 04/01/2022 Pneumococcal Polysaccharide PPV23 (Pneumovax) 05/21/2006 Seasonal [...] Notes * Telephone Encounter - Pablo Cr RPh - 08/19/2022 4:08 PM EST Signed Prescriptions: Disp Refills Klor-Con M20 20 MEQ Oral Tablet Extended R*90 Tab*3 Sig: TAKE 1 TABLET BY MOUTH EVERY DAYAuthorizing Provider: MARCELA PINTO User: PABLO CR documented in this encounter Plan of Treatment Upcoming Encounters Date Type Specialty Care Team Description 09/11/2022 Office Visit General Surgery Dionte Snyder MD [address] [place] [address] 10/08/2022 Office Visit [facility]oped[facility]ord[facility] [address] [facility] [id number] 10/10/2022 Office Visit Internal Medicine Marcela Pinto MD [address] [place] [address] 11/04/2022 Office Visit Hematology Oncology Ida Cueva CRNP [address] [facility] [place] [id number] 01/03/2023 Office Visit Cardiology [facility]ammad Lopez, DO [address] [facility] [place] [address] Health Maintenance Due Date Last Done Comments [...] Additional history exists GFR - Renal Function 02/09/2023 08/12/2022, 08/06/2022, 08/05/2022, Additional history exists Alb / Creat Ratio 02/19/2023 02/19/2022, , 07/27/2018, Additional history exists DIABETES-EYE EXAM 03/08/2023 03/08/2022, , 08/07/2020, Additional history exists CKD PHOS USE SMARTSET 02200 08/05/202307/14, 02/19/2022, 03/09/2021, Additional history exists CKD HGB USE SMARTSET 30073 08/12/202308/12, 08/06/2022, 08/05/2022, Additional history exists O2 ASSESSMENT COMPLETED IN PAST YEAR FOR COPD 08/15/2023 08/15/2022 DXA Scan 08/08/2025 08/08/2020, 04/13, 06/19/2010, Additional [...] daniel occurred with: Not Discussed Care Teams Double End Tenon Operator Relationship Specialty Start Date End Date Marcela Pinto MD [address] [place] [address] PCP - General Internal Medicine 08/04/14 documented as of this encounter
--- OUTSIDE RECORDS SUMMARY | 2023-06-18 02:37 | External Medical Summary | Summary of Care ---
Author Name Unknown Organization [place] [address] Care Team Providers Care Water Resources Technical Officer Name Role Phone Marcela Pinto MD Primary Care Provider + Encounter Details Date Type Department Care Team Description 08/20/2022 Orders Only General Internal Medicine [facility] [address] [place] [address] Marcela Pinto MD [address] [place] [address] Allergies Active Allergy Reactions Severity Noted Date Comments Valsartan 07/10/2010 Enalapril 05/21/2006 Escitalopram Oxalate Nausea/vomiting 10/11/2009 Nauseated Iodinated Diagnostic Agents Nausea/vomiting 05/2010 IV Contrast Iodine Hives 12/18/2009 IV Contrast Metoprolol Tartrate 11/18/2006 Made pulse low [place] Oil-Black Currant-Vit E 07/10/2010 Verapamil 03/21/2004 Bupropion Hcl 10/30/2009 Makes pt sick in the stomach documented as of this encounter (statuses as of 08/20/2022) Medications Medication Sig Dispensed Refills Start Date [...] Respimat 1.25 MCG/ACT Inhalation Aerosol Solution (Tiotropium [place] Monohydrate) Inhale by mouth 2 Puffs daily [...] Oral Capsule Delayed Release (PriLOSEC)Indicatio ns:Ischemic colitis ([facility]) TAKE 1 CAPSULE BY MOUTH [...] for 24 days. 24 g 0 07/29/2022 Active HYDROcodone-Acetami nophen 5-325 MG Oral TabletIndications:G eneralized osteoarthritis Take by mouth 1 Tablet every 6 hours as needed for Pain, Mild. 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),NICM (nonischemic cardiomyopathy) ([facility]),Presence of Watchman left atrial appendage [...] as of this encounter (statuses as of 08/20/2022) Active Problems Problem Noted Date Protein-calorie malnutrition [...] as of this encounter (statuses as of 08/20/2022) Resolved Problems Problem Noted Date Resolved Date [...] Hypoxemia 10/08/2011 10/30/2015 Genetic Sleep Disorder Research Other*[id number] 07/25/2011 05/15/2016 COPD, moderate 07/19/2011 07/28/2019 Overview: [...] as of this encounter (statuses as of 08/20/2022) Immunizations Name Administration Dates Next Due COVID-19 mRNA, LNP-s, No Pre serve, 2-Dose Series ([employer]) 08/21/2021,12/22/2020,2020 COVID-19, LNP-s, No Preserve , Tyler-sucrose, Ages 12+ (Pfizer) 04/16/2022 Hepatitis B, 20+ yrs 10/01/2017,04/21/2017,03/20 Pneumococcal Conjugate Vacc, 13 Valent (Prevnar) 03/28/2015 Pneumococcal Conjugate Vacci ne, 20-valent ([id number]) 04/01/2022 Pneumococcal Polysaccharide PPV23 (Pneumovax) 05/21/2006 Seasonal [...] General Surgery Dionte Snyder MD [address] [place] [address] 10/08/2022 Office Visit Orthopedics Eliezer Gifford, DO [address] [facility] [place] [address] 10/10/2022 Office Visit Internal Medicine Marcela Pinto MD [address] [place] [address] 11/04/2022 Office Visit Hematology Oncology [facility]ue[facility] [address] [facility] [place] [address] 01/03/2023 Office Visit Cardiology Hammad Lopez, DO [address] [place] [address] Health Maintenance Due Date Last Done Comments [...] Additional history exists CKD PHOS USE SMARTSET 77423 08/05/202307/14, 02/19/2022, 03/09/2021, Additional history exists O2 ASSESSMENT COMPLETED IN PAST YEAR FOR COPD 08/15/2023 08/15/2022 CKD HGB USE SMARTSET 57031 08/19/202308/19, 08/12/2022, 08/06/2022, Additional history exists DXA [...] Procedure Name Priority Date/Time Associated Diagnosis Comments CHEMISTRY-OUTSIDE Routine 08/19/2022 documented in this encounter Results * (ABNORMAL) CHEMISTRY-OUTSIDE (08/19/2022) CREATININE-OUTSID E LAB 0.84 0.55 - 1.02 MG/DL OUTSIDE LAB (SEE SCANNED REPORT) EGFR-OUTSIDE LAB >60 >=60 ML/MIN/1.7 3M2 OUTSIDE LAB (SEE SCANNED REPORT) POTASSIUM-OUTSIDE LAB 3.8 3.5 - 5.1 MMOL/L OUTSIDE LAB (SEE SCANNED REPORT) GLUCOSE-OUTSIDE LAB 171(A) 70 - 110 MG/DL OUTSIDE LAB (SEE SCANNED REPORT) HOURS FASTING OUTSID E LAB (SEE SCANNED REPORT) TRIGLYCERIDES-OUT SIDE LAB OUTSIDE LAB (SEE SCANNED REPORT) CHOLESTEROL-OUTSI DE LAB OUTSIDE LAB (SEE SCANNED REPORT) HDL-OUTSIDE LAB OUTS [place] [facility] (SEE SCANNED REPORT) CHOL/HDL RATIO-OUTSIDE LAB OUTSIDE LA B (SEE SCANNED REPORT) LDL (CALCULATED)-OUTS [place] [facility] OUTSIDE LAB (SEE SCANNED REPORT) LDL (DIRECT MEASURE)-OUTSIDE LAB OUTSIDE LAB (SEE SCANNED REPORT) HEMOGLOBIN, [id number] LAB OUTSIDE LAB (SEE SCANNED REPORT) PHOSPHORUS-OUTSID E LAB OUTSIDE LAB (SEE SCANNED REPORT) PTH-OUTSIDE LAB OUTS [place] [facility] (SEE SCANNED REPORT) MICROALBUMIN RATIO-OUTSIDE LAB OUTSIDE LA B (SEE SCANNED REPORT) PROTEIN, UA-OUTSIDE LAB OUTSIDE LAB (SEE SCANNED REPORT) HEMOGLOBIN-OUTSID E LAB 9.0(A) 12.0 - 16.0 GM/DL OUTSIDE LAB (SEE SCANNED REPORT) CHEMISTRY COMMENT-OUTSIDE LAB OUTSIDE LAB (SEE SCANNED REPORT) Comment:SEE SCAN: BMP, CBCD 08/19/2022 Marcela Pinto MD LABORATORY OUTSIDE LAB (SEE SCANNED REPORT) documented in [...] daniel occurred with: Not Discussed Care Teams Water Resources Technical Officer Relationship Specialty Start Date End Date Marcela Pinto MD [address] [place] [address], [place] [address] PCP - General Internal Medicine 08/04/14 documented as of this encounter
--- OUTSIDE RECORDS SUMMARY | 2023-06-18 02:37 | External Medical Summary | Summary of Care ---
Author Name Unknown Organization [place] [address] Care Team Providers Care Nurse Practitioner Manager Name Role Phone Marcela Pinto MD Primary Care Provider + Encounter Details Date Type Department Care Team Description 08/13/2022 Orders Only General Internal Medicine [facility] [address] [place] [address] Marcela Pinto MD [address] [facility] [place] [address] Allergies Active Allergy Reactions Severity Noted Date Comments Valsartan 07/10/2010 Enalapril 05/21/2006 Escitalopram Oxalate Nausea/vomiting 10/11/2009 Nauseated Iodinated Diagnostic Agents Nausea/vomiting 05/2010 IV Contrast Iodine Hives 12/18/2009 IV Contrast Metoprolol Tartrate 11/18/2006 Made pulse low [place] Oil-Black Currant-Vit E 07/10/2010 Verapamil 03/21/2004 Bupropion Hcl 10/30/2009 Makes pt sick in the stomach documented as of this encounter (statuses as of 08/13/2022) Medications Medication Sig Dispensed Refills Start Date [...] mg by mouth daily. 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 135 Tablet 3 08/09/2022 Active documented as of this encounter (statuses as of 08/13/2022) Active Problems Problem Noted Date Diverticulitis of intestine with abscess 07/25/2022 Ischemic [...] as of this encounter (statuses as of 08/13/2022) Resolved Problems Problem Noted Date Resolved Date [...] Hypoxemia 10/08/2011 10/30/2015 Genetic Sleep Disorder Research Other*[id number] 07/25/2011 05/15/2016 COPD, moderate 07/19/2011 07/28/2019 Overview: [...] as of this encounter (statuses as of 08/13/2022) Immunizations Name Administration Dates Next Due COVID-19 mRNA, LNP-s, No Pre serve, 2-Dose Series (Pfizer) 08/21/2021,12/22/2020,2020 COVID-19, LNP-s, No Preserve , Tyler-sucrose, Ages 12+ (Pfizer) 04/16/2022 Hepatitis B, 20+ yrs 10/01/2017,04/21/2017,03/20 Pneumococcal Conjugate Vacc, 13 Valent (Prevnar) 03/28/2015 Pneumococcal Polysaccharide PPV23 (Pneumovax) 05/21/2006 Seasonal Influenza, [...] older)(Boostrix) 06/04/2018 Varicella Zoster Vaccine (Adult) 07/06/2012 documented as of this encounter 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 Tobacco Use Types Packs/Day Years Used Date Never Smoker Smokeless Tobacco: Never Used Alcohol Use Standard Drinks/Week Comments No 0 [...] Encounters Date Type Specialty Care Team Description 08/15/2022 Office Visit Internal Medicine Marcela Pinto MD [address] [place] [address] 09/11/2022 Office Visit General Surgery Dionte Snyder MD [address] [place] [address] 10/08/2022 Office Visit [facility]oped[facility] Gifford[facility] [address] [facility] [address] 10/10/2022 Office Visit Internal Medicine Marcela Pinto MD [address] [place] [address] 11/04/2022 Office Visit Hematology Oncology Ida Cueva CRNP [address] [facility] [place] [id number] 01/03/2023 Office Visit [facility]iology [facility] Lopez, DO [address] [facility] [address] Health Maintenance Due Date Last Done Comments Zoster Vaccines (2 of 3) 08/31/2012 07/06/2012 COVID-19 Vaccine (5 - Booster for Pfizer series) 06/11/2022 04/16/2022, 08/21/2021, 12/22/2020, Additional history exists Depression Screening, Annual for Pts 12 and Over 08/08/2022 08/08/2021 DIABETES-FOOT EXAM 11/19/2022 11/19/2021, 0 12/21/2020, 10/19/2019, Additional history exists DIABETES-HGBA1C EVERY 6 MONTHS 12/08/2022 06/07/2022, 02/19/2022, 08/23/2021, Additional history exists GFR - Renal Function 02/04/2023 08/12/2022, 08/06/2022, 08/05/2022, Additional history exists Alb / Creat Ratio 02/19/2023 02/19/2022, , 07/27/2018, Additional history exists DIABETES-EYE EXAM 03/08/2023 03/08/2022, , 08/07/2020, Additional history exists O2 ASSESSMENT COMPLETED IN PAST YEAR FOR COPD 07/29/2023 07/29/2022 CKD PHOS USE SMARTSET 36686 08/05/202307/14, 02/19/2022, 03/09/2021, Additional history exists CKD HGB USE SMARTSET 25183 08/06/202308/12, 08/06/2022, 08/05/2022, Additional history exists DXA Scan 08/08/2025 08/08/2020, 04/13, 06/19/2010, Additional history exists DTaP,Tdap,and Td Vaccines (2 - Td or Tdap) 06/04/2028 06/04/2018, 02/28/2009 Pneumococcal Vaccine: 65+ Years Completed 03/28/2015, 05/21/2006 Hepatitis B Aged Out 10/01/2017, 04/12, 03/20/2017 No longer eligible based on patient's age to complete this topic Influenza Vaccine (FLU shot) Completed , 07/10/2021, 06/22/2020, Additional history exists GARDASIL-HPV IMMUNIZATION SERIES Aged Out No longer eligible based on patient's age to complete this topic MENINGOCOCCAL (MENACTRA/MENVEO) Aged Out No longer eligible based on patient's age to complete this topic documented as of this encounter Implants Not on filedocumented as of this encounter Procedures Procedure Name Priority Date/Time Associated Diagnosis Comments CHEMISTRY-OUTSIDE Routine 08/12/2022 documented in this encounter Results * (ABNORMAL) CHEMISTRY-OUTSIDE (08/12/2022) CREATININE-OUTSIDE LAB 0.80 0.55 - 1.02 MG/DL OUTSIDE LAB (SEE SCANNED REPORT) EGFR-OUTSIDE LAB >60 >=60 ML/MIN/1.73M2 OUTSIDE LAB (SEE SCANNED REPORT) POTASSIUM-OUTSIDE LAB 3.9 3.5 - 5.1 MMOL/L OUTSIDE LAB (SEE SCANNED REPORT) GLUCOSE-OUTSIDE LAB 120(A) 70 - 110 MG/DL OUTSID E LAB (SEE SCANNED REPORT) HOURS FASTING OUTSIDE LAB (S EE SCANNED REPORT) TRIGLYCERIDES-OUTSIDE LAB OUTSIDE LAB (SEE SCANNED REPORT) CHOLESTEROL-OUTSIDE LAB OUTSIDE LAB (SEE SCANNED REPORT) HDL-OUTSIDE LAB OUTSIDE LAB (SEE SCANNED REPORT) CHOL/HDL RATIO-OUTSIDE LAB OUTSIDE LAB (SEE SCANNED REPORT) LDL (CALCULATED)-OUTSIDE LAB OUTSIDE LAB (SEE SCANNED REPORT) LDL (DIRECT MEASURE)-OUTSIDE LAB OUTSIDE LAB (SEE SCANNED REPORT) HEMOGLOBIN, [id number] LAB OUTSIDE LAB (SEE SCANNED REPORT) PHOSPHORUS-OUTSIDE LAB OUTSIDE LAB (SEE SCANNED REPORT) PTH-OUTSIDE LAB OUTSIDE LAB (SEE SCANNED REPORT) MICROALBUMIN RATIO-OUTSIDE LAB OUTSIDE LAB (SEE SCANNED REPORT) PROTEIN, UA-OUTSIDE LAB OUTSIDE LAB (SEE SCANNED REPORT) HEMOGLOBIN-OUTSIDE LAB 9.1(A) 12.0 - 16.0 GM/DL OUTSIDE LAB (SEE SCANNED REPORT) CHEMISTRY COMMENT-OUTSIDE LAB Comment:SEE SCAN - BMP, CBCD OUTSIDE LAB (SEE SCANNED REPORT) Specimen Narrative OUTSIDE LAB (SEE SCANNED REPORT) documented in this encounter Advance Directives Documents on File Type Date Recorded Patient Big Machine Consultant 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 Advanced Directive Advanced Directive Advanced Directive Advanced Directive Advanced Directive Advanced Directive Advanced Directive Advanced Directive Advanced Directive Advanced Directive Advanced Directive Advanced Directive Advanced Directive Advanced Directive Advanced Directive Advanced Directive Advanced Directive Advanced Directive Advanced Directive Advanced Directive Advanced Directive Advanced Directive Advanced Directive Advanced Directive Advanced Directive Advanced Directive Advanced Directive Advanced Directive Advanced Directive Advanced Directive Advanced Directive Advanced Directive Advanced Directive Advanced Directive Advanced Directive Advanced Directive Advanced Directive Advanced Directive Advanced Directive Advanced Directive Advanced Directive Advanced Directive Advanced Directive Advanced Directive Advanced Directive Advanced Directive Advanced Directive Advanced Directive Advanced Directive Advanced Directive Advanced Directive Advanced Directive Advanced Directive Advanced Directive Advanced Directive Advanced Directive Advanced Directive Advanced Directive Advanced Directive Advanced Directive Advanced Directive Advanced Directive Advanced Directive Advanced Directive Advanced Directive Advanced Directive Advanced Directive Advanced Directive Advanced Directive Advanced Directive Advanced Directive Advanced Directive Advanced Directive Advanced Directive Advanced Directive Advanced Directive Advanced Directive Advanced Directive Advanced Directive Advanced Directive Advanced Directive Advanced Directive Advanced Directive Advanced Directive Advanced Directive Advanced Directive Advanced Directive Advanced Directive Advanced Directive Advanced Directive 07/25/2022 2:14 PM Advanced Directive 06/06/2022 2:05 PM Latest Code Status on File Code Status Date Activated Date Inactivated Comments Full Code 07/25/2022 12:40 PM 07/29/2022 7:19 PM Th is order reflects the patients wishes and were consensually agreed upon. Discussion of Advance Directives occurred with: Patient Full Code 06/06/2022 12:31 PM 06/10/2022 4:44 PM Discussion of Advance Directives occurred with: Not Discussed Care Teams Nurse Practitioner Manager Relationship Specialty Start Date End Date Marcela Pinto MD [address] [place] [address] PCP - General Internal Medicine 08/04/14 documented as of this encounter
--- OUTSIDE RECORDS SUMMARY | 2023-06-18 02:37 | External Medical Summary | Summary of Care ---
Author Name Unknown Organization [place] [address] Care Team Providers Care Permit Agent Name Role Phone Marcela Pinto MD Primary Care Provider + Reason for Visit * Reason Onset Date Comments Advice 08/20/2022 Encounter Details Date Type Department Care Team Description 08/20/2022 Telephone General Internal Medicine [facility] [address] [facility] [place] [address] Marcela Pinto MD [address] [place] [address] Advice Allergies Active Allergy Reactions Severity Noted Date Comments Valsartan 07/10/2010 Enalapril 05/21/2006 Escitalopram Oxalate Nausea/vomiting 10/11/2009 Nauseated Iodinated Diagnostic Agents Nausea/vomiting 05/2010 IV Contrast Iodine Hives 12/18/2009 IV Contrast Metoprolol Tartrate 11/18/2006 Made pulse low [place] Oil-Black Currant-Vit E 07/10/2010 Verapamil 03/21/2004 Bupropion [...] Respimat 1.25 MCG/ACT Inhalation Aerosol Solution (Tiotropium [place] Monohydrate) Inhale by mouth 2 Puffs daily [...] Oral Capsule Delayed Release (PriLOSEC)Indicatio ns:Ischemic colitis ([facility]) TAKE 1 CAPSULE [...] Oral Tablet Extended Release 24 Hour (toPROL XL)Indications:Branding Specialist akin heart failure with reduced ejection fraction [...] Hypoxemia 10/08/2011 10/30/2015 Genetic Sleep Disorder Research Other*[id number] 07/25/2011 05/15/2016 COPD, moderate 07/19/2011 07/28/2019 Overview: [...] mRNA, LNP-s, No Pre serve, 2-Dose Series ([employer]) 08/21/2021,12/22/2020,2020 COVID-19, LNP-s, No Preserve , Tyler-sucrose, Ages 12+ (Pfizer) 04/16/2022 Hepatitis B, 20+ yrs 10/01/2017,04/21/2017,03/20 Pneumococcal Conjugate Vacc, 13 Valent (Prevnar) 03/28/2015 Pneumococcal Conjugate Vacci ne, 20-valent ([id number]) 04/01/2022 Pneumococcal Polysaccharide PPV23 (Pneumovax) 05/21/2006 Seasonal [...] [facility] - 08/20/2022 8:22 AM EST Chart formerly [facility] home health calling to ask if the Ertapenem iv will finish on time or will they need to send more medication. If it does finish, there needs to be orders for Home Health to remove the IV access Please call [facility] at [phone] Please advise Thank you, Anastasiia Oleary, real estate recruiter Battery Repairer II [employer] Fundguthrie [facility] hospital[facility] Telepharmacy 08/20/2022,8:28 AM documented in this encounter Plan of Treatment Upcoming Encounters Date Type Specialty Care Team Description 09/11/2022 Office Visit General Surgery Dionte Snyder MD [address] [place] [address] 09/24/2022 Office Visit Orthopedics Eliezer Gifford, DO [address] [facility] [place] [address] 10/10/2022 Office Visit Internal Medicine Marcela Pinto MD [address] [place] [address] 11/04/2022 Office Visit Hematology Oncology Ida Cueva CRNP [address] [facility] [place] [address] 01/03/2023 Office Visit Cardiology Hammad Lopez, DO [address] [place] [address] Health Maintenance Due Date Last Done [...] Additional history exists CKD PHOS USE SMARTSET 06956 08/05/202307/14, 02/19/2022, 03/09/2021, Additional history exists O2 ASSESSMENT COMPLETED IN PAST YEAR FOR COPD 08/15/2023 08/15/2022 CKD HGB USE SMARTSET 70784 08/19/202308/19, 08/12/2022, 08/06/2022, Additional history exists DXA [...] daniel occurred with: Not Discussed Care Teams Permit Agent Relationship Specialty Start Date End Date Marcela Pinto MD [address] [facility] [place] [address] PCP - General Internal Medicine 08/04/14 documented as of this encounter
--- OUTSIDE RECORDS SUMMARY | 2023-06-18 02:37 | External Medical Summary | Summary of Care ---
Author Name Unknown Organization [place] [address] Care Team Providers Care Dry Heat Cabinet Attendant Name Role Phone Marcela Pinto MD Primary Care Provider + Reason for Visit * Reason Onset Date Comments Hospital Follow-Up Hospital Follow-Up 08/15/2022 Encounter Details Date Type Department Care Team Description 08/15/2022 Office Visit General Internal Medicine Ashok Romero Guinda [address] [place] [address] Marcela Pinto MD [address] [place] [address] Diverticulitis of intestine with abscess, unspecified bleeding status, unspecified part of intestinal tract*; Protein-calorie malnutrition, unspecified severity ([facility]); Hospital discharge follow-up; Type 2 diabetes mellitus with hemoglobin A1c goal of less than 7.5% ([facility]); Chronic hypoxemic respiratory failure ([facility]); Hyperlipidemia with target LDL less than 100; Subclinical hyperthyroidism; Type 2 diabetes mellitus with stage 3a chronic kidney disease, without long-term current use of insulin ([facility]); Asthma with severity to be determined; HTN, goal below 140/90; Pulmonary HTN ([facility]); Paroxysmal atrial fibrillation ([facility]); Urinary tract infection without hematuria, site unspecified; COPD, group B, 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 ([facility]) Allergies Active Allergy Reactions Severity Noted Date Comments Valsartan 07/10/2010 Enalapril 05/21/2006 Escitalopram Oxalate Nausea/vomiting 10/11/2009 Nauseated Iodinated Diagnostic Agents Nausea/vomiting 05/2010 IV Contrast Iodine Hives 12/18/2009 IV Contrast Metoprolol Tartrate 11/18/2006 Made pulse low [place] Oil-Black Currant-Vit E 07/10/2010 Verapamil 03/21/2004 Bupropion Hcl 10/30/2009 Makes pt sick in the stomach documented as of this encounter (statuses as of 08/15/2022) Medications Medication Sig Dispensed Refills Start Date [...] 1.25 MCG/ACT Inhalation Aerosol Solution (Tiotropium [place] Monohydrate) Inhale by mouth 2 Puffs daily [...] Oral Tablet Extended Release 24 Hour (toPROL XL)Indications:Rib Sawyer akin 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 135 Tablet 3 08/09/2022 Active Magnesium Chloride 64 MG Oral Tablet Delayed Release (Mag-64) 64 mg . 0 07/25/2022 Active documented as of this encounter (statuses as of 08/15/2022) Active Problems Problem Noted Date Protein-calorie malnutrition [...] as of this encounter (statuses as of 08/15/2022) Resolved Problems Problem Noted Date Resolved Date [...] Hypoxemia 10/08/2011 10/30/2015 Genetic Sleep Disorder Research Other*[id number] 07/25/2011 05/15/2016 COPD, moderate 07/19/2011 07/28/2019 Overview: [...] as of this encounter (statuses as of 08/15/2022) Immunizations Name Administration Dates Next Due COVID-19 mRNA, LNP-s, No Pre serve, 2-Dose Series ([employer]) 08/21/2021,12/22/2020,2020 COVID-19, LNP-s, No Preserve , Tyler-sucrose, Ages 12+ (Pfizer) 04/16/2022 Hepatitis B, 20+ yrs 10/01/2017,04/21/2017,03/20 Pneumococcal Conjugate Vacc, 13 Valent (Prevnar) 03/28/2015 Pneumococcal Conjugate Vacci ne, 20-valent ([id number]) 04/01/2022 Pneumococcal Polysaccharide PPV23 (Pneumovax) 05/21/2006 Seasonal [...] Sign Reading Time Taken Comments Blood Pressure 110/68 08/15/2022 2:21 PM EDT Pulse 90 08/15/2022 2:21 PM EDT Temperature 37.2 C (98.9 F) 08/15/2022 2:21 PM ED T Respiratory Rate 16 08/15/2022 2:21 PM EDT Oxygen Saturation 97% 08/15/2022 2:21 PM EDT Inhaled Oxygen Concentration - - Weight 96.2 kg (212 lb 0.2 oz) 08/15/2022 2:21 P M EDT Height 165.1 cm (5' 5") 08/15/2022 2:21 PM EDT Body Mass Index 35.28 08/15/2022 2:21 PM EDT documented in this encounter Functional Status Functional [...] * Patient Instructions* Marcela Pinto MD - 08/15/2022 2:25 PM EDT BMI (Body Mass Index) is the number obtained by dividing a person's weight in kilograms by his or her height in meters squared. BMI is used in determining obesity. BMI is not used to determine a person's actual percentage of body fat, but it is a good tool to order packer weight in terms of what is healthy and unhealthy. It is used to identify adults at increased risk for developing weight related medical problems. Estimated body mass index is 35.28 kg/m as calculated from the following: Height as of this encounter: 1.651 m (5' 5"). Weight as of this encounter: 96.2 kg (212 lb 0.2 oz). Obesity - BMI 35 kg/m2 to 39.9 kg/mg - Obese individuals are at a risk for developing * Heart disease * Stroke * Diabetes * High Blood Pressure * High Cholesterol * GERD (acid reflux) * Sleep Apnea * Osteoarthritis * Fatty Liver Disease * Certain Types of Cancers * Gout * Gall Bladder Disease - Weight loss has been shown to decrease weight related medical problems. - Those with a BMI 35 kg/m2 or higher are almost ten times more likely to develop diabetes in theirlifetimes than those with a normal BMI. - A 12-week weight management text message program is also available. Go to [employer] and seethe message under '[employer] News' for more information and enrollment. Patient is Instructed to: Diet: * Limit total fat intake to no more than 40 grams per day (low fat diet). * Increase fruits and vegetables to 5 servings per day, combined. * Limited starches (breads, pasta, rice, potatoes, corn, cereals) to 4 servings per day. Avoid Calorie Containing Drinks: * No fruit juices, regular sodas or sweetened drinks. * Water is preferred - 64 ounces per day unless advised of a fluid restriction. * Diet sodas and drinks permitted. Keep Honest, Accurate Food logs: * www.[employer] * www.Ev[employer]ize[employer] * If you bite it - write it! Weigh Yourself Weekly: * Morning is best. * Try to do this outside your home. * Have a friend/spouse remind you to weigh yourself, accountability to others helps. Perform 30 minutes of physical activity daily: * Can do all at once or 5 minutes 6 times per day * 8, 000-10,000 steps per day using a pedometer * Make it fun! documented in this encounter Progress Notes * Marcela Pinto MD - 08/15/2022 2:25 PM EDT HPI: Nina Harrington is a 81 year old female who presents with: Chief Complaint Patient presents with Hospital Follow-Up Hospital Follow-Up Pt is here for the hospital follow up. Chart reviewed from the hospital including admission note, Hand P, consult notes, labs, EKG, imaging and discharge note including discharge meds. Patient states she is feeling better since went back home. Pt was admitted to [facility] first on 07/17/22 and got transfer to [facility] on 07/25/22,the [facility] hospital on 07/25/22 and was discharged on 07/29/22. . Admission Diagnosis : UTI, acute sigmoid diverticultiis with abcess, s/p IR drain at [place]. Pt has been followed up by case coordinator and specialists. As per discharge by Dr. Kelley on 07/29/22: Patient w/PMH of COPD, chronic respiratory failure (on 2 L NC during the day and 4 L NC at night), HFrEF, PAF (s/p watchman device so is no longer on anticoagulation), DM, recurrent diverticulitis, colovesicular fistula presents to ED today for diverticulitis w/abscess. Patient had hospitalization for diverticulitis in May (she was initially admitted to [facility] then she was transferred to [facility]). She was deemed high risk for surgery and she was managed conservatively and discharged on PO antibiotics. She ended up being admitted again to [facility] on 07/17/2022 for LLQ pain and hematochezia. She was found to have diverticulitis w/small non-drainable abscess. Surgery recommended conservative management. ID was consulted and recommended 4 weeksof zosyn (end date 08/14/2022), they were unsuccessful in getting a PICC line placed yesterday. However, her symptoms were not getting better so they got a repeat CT scan which showed worsening ofthe abscess. Patient was transferred to [facility] for IR procedure to drain the abscess. Patient states she still has LLQ and LUQ, sharp and stabbing in nature. She gets nauseated if she tries to eatanything but she hasn't vomited. She reports her stools are loose and dark in appearance. Of note, she required 1 unit PRBCs during her stay at [facility] Pt was transferred to [facility] on 07/29/22 and was d/miguel on 08/08/22. Urinary s/s are better than before. Reviewed all the imaging or venous duplex. Pt is currently getting Invanz/Ertapenem once daily through PICC line, last day is on 08/22/22. No side effects. Patient Active Problem List Diagnosis Code Asthma [...] than 7.5% ([facility]) E11.9 Elevated plasma metanephrines R79.89 Irritable bowel syndrome with constipation K58.1 HECTOR (generalized anxiety disorder) F41.1 COPD, group B, 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 ([facility]) J44.9 Morbid obesity with BMI of 40.0-44.9, adult ([facility]) E66.01, Z68.41 Gastro-esophageal reflux disease without esophagitis K21.9 Paroxysmal atrial fibrillation ([facility]) I48.0 Chronic systolic heart failure ([facility]) I50.22 Pulmonary HTN ([facility]) I27.20 Chronic hypoxemic respiratory failure ([facility]) J96.11 Chronic kidney disease, stage 3a ([facility]) N18.31 Subclinical hyperthyroidism E05.90 History of ESBL E. coli infection Z86.19 Type 2 diabetes mellitus with stage 3a chronic kidney disease, without long- term current use ofinsulin ([facility]) E11.22, N18.31 Gastroparesis K31.84 Ischemic colitis ([facility]) K55.9 Asthma, mild persistent J45.30 Diverticulitis of intestine with abscess K57.80 Protein-calorie malnutrition ([facility]) E46 Current Outpatient Medications Medication Sig Dispense Refill [...] WORSENING ASTHMA. J45.909, J44.9 225 mL 1 Aspirin 81 MG Oral Tablet Delayed Release Take 81 mg by mouth daily. Klor-Con M20 20 MEQ Oral Tablet Extended Release (Potassium Chloride Annalisa ER) TAKE 1 TABLET BY MOUTH EVERY DAY 90 Tablet 3 Spiriva Respimat 1.25 MCG/ACT Inhalation Aerosol Solution (Tiotropium [place] Monohydrate) Inhale by mouth 2 Puffs daily . Spironolactone 25 MG Oral Tablet (Aldactone) Take by mouth 0.5 Tablets once a day on Friday, Friday, and Friday only . 45 Tablet 3 Atorvastatin Calcium 40 MG Oral Tablet (Lipitor) Take by mouth 1 Tablet in the morning. 100 Tablet 3 Ipratropium-Albuterol 20-100 MCG/ACT Inhalation Aerosol Solution (Combivent Respimat) TAKE 1 PUFF BY MOUTH 4 TIMES A DAY 12 g 1 Dicyclomine HCl 20 MG Oral Tablet (Bentyl) TAKE 1 TABLET BY MOUTH EVERY DAY 90 Tablet 2 Ferrous Sulfate 325 (65 Fe) MG Oral Tablet (Feosol) Take by mouth 1 Tablet in the morning. Zafirlukast 20 MG Oral Tablet (Accolate) TAKE 1 TABLET BY MOUTH EVERY DAY 90 Tablet 3 Promethazine HCl 25 MG Oral Tablet (Phenergan) TAKE 1 TABLET BY MOUTH EVERY 6 HOURS NEEDED FOR NAUSEA 60 Tablet 2 Sertraline HCl 25 MG Oral Tablet (Zoloft) TAKE 1 TABLET BY MOUTH EVERY DAY IN THE MORNING 90 Tablet 1 Omeprazole 20 MG Oral Capsule Delayed Release (PriLOSEC) TAKE 1 CAPSULE BY MOUTH TWICE A DAY 180 Capsule 3 Ondansetron 8 MG Oral Tablet Disintegrating (Zofran) DISSOLVE 1 TABLET ON TONGUE EVERY 8 HOURS NEEDED FOR NAUSEA 60 Tablet 5 Furosemide 40 MG Oral Tablet (Lasix) Take by mouth 1 Tablet in the morning AND 1 Tablet before bedtime. 60 Tablet 6 methIMAzole 5 MG Oral Tablet (Tapazole) Take by mouth 5 mg in the morning. ertapenem INJ IV (AMBULATORY) Administer intravenously 1 g in the morning for 24 days. 24 g 0 HYDROcodone-Acetaminophen 5-325 MG Oral Tablet Take by mouth 1 Tablet every 6 hours as needed for Pain, Mild. 120 Tablet 0 Glimepiride 2 MG Oral Tablet (Amaryl) TAKE 1 TABLET BY MOUTH EVERY DAY WITH BREAKFAST 90 Tablet1 Metoprolol Succinate ER 25 MG Oral Tablet Extended Release 24 Hour (toPROL XL) TAKE 1 TAB IN THE MORNING AND 1/2 TAB IN THE EVENING. 135 Tablet 3 Albuterol Sulfate (VENTOLIN HFA) 108 (90 Base) MCG/ACT AERS Inhale 2 Puffs by mouth 2 times a day. Polyethylene Glycol 3350 17 GM Oral Packet (Miralax) Take by mouth 17 g 2 times a day as neededfor Constipation. Magnesium Chloride 64 MG Oral Tablet Delayed Release (Mag-64) 64 mg . (Patient not taking: Reported on 08/15/2022 ) No current facility-administered medications for this visit. The patient's medication list was reviewed and updated as needed. Review of patient's allergies indicates: Allergen Reactions Diovan [Valsartan] Enalapril Escitalopram Oxalate Nausea/vomiting Nauseated Iodinated Diagnostic Agents Nausea/vomiting IV Contrast Iodine Hives IV Contrast Metoprolol Tartrate Made pulse low [place] Oil-Black Currant-Vit E Verapamil Wellbutrin [Bupropion Hcl] Makes pt sick in the stomach Past Medical History: Diagnosis Date ACEI/ARB contraindicated Asthma Carpal tunnel syndrome DM type 2, goal: symptom mgmt (HCC) Generalized osteoarthritis HTN, goal below 140/90 Mixed dyslipidemia 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 Socioeconomic History Marital status: Spouse name: Not on file Number of children: 6 Years of education: Not on file Highest education level: Not on file Occupational History Occupation: Disability 1998 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 OBJECTIVE: BP 110/68 | Pulse 90 | Temp 37.2 C (98.9 F) (Tympanic) | Resp 16 | Ht 1.651 m (5' 5") | Wt 96.2kg (212 lb 0.2 oz) | SpO2 97% | BMI 35.28 kg/m | BSA 2.1 m PHYSICAL EXAM: HEENT: PERRLA, EOMI, anicteric sclera, , no lymphadenopathy, neck supple CVS: RRR, no murmurs, rubs or gallops, s1 s 2normal. RESP: clear to auscultation, + wheezing or crackles ABD: soft, NT/ND, has drain left lower abd with not much drain right now. EXT: no edema, cyanosis, peripheral pulses palpable bilaterally No large joint swelling, no redness, range of motion normal. Skin normal. Gait normal. Mood stable No focal weakness ASSESSMENT AND PLAN: Diverticulitis of intestine with abscess, unspecified bleeding status, unspecified part of intestinal tract (Primary) Protein-calorie malnutrition, unspecified severity (HCC) Hospital discharge follow-up - DISCH MED RECON CUR MED LIS Type 2 diabetes mellitus with hemoglobin A1c goal of less than 7.5% (HCC) On Amaryl. Since came back home, has more fluctuating glucose. Advised to watch. Chronic hypoxemic respiratory failure (HCC) On oxygen 2 lit during day and 4 at night and excertion. Hyperlipidemia with target LDL less than 100 On statin. Subclinical hyperthyroidism On methimazole. Type 2 diabetes mellitus with stage 3a chronic kidney disease, without long-term current use of insulin (HCC) Rate controlled. Asthma with severity to be determined - [id number], QN; Future; Expected date: 08/15/2022 HTN, goal below 140/90 Well controlled. Pulmonary HTN (HCC) Has sleep apnoea, doesn't and can not use Cpap machine. Paroxysmal atrial fibrillation (HCC) Rate controlled. On baby aspirin. Urinary tract infection without hematuria, site unspecified Resoled. COPD, group B, 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 (HCC) - [id number], QN; Future; Expected date: 08/15/2022 On spiriva, albuterol as needed. On daily inhaler and also rescue albuterol as needed. documented in this encounter Nursing Notes * Alejandra Le LPN - 08/15/2022 2:19 PM EDT Patient presents today for a hospital follow up. She was diagnosed with a uti in the hospital and is on an antibiotic for it. She said that she is having dreams that are very vivid and she sees things but when she goes to pick it up it isn't there. documented in this encounter Plan of Treatment Upcoming Encounters Date Type Specialty Care Team Description 09/11/2022 Office Visit General Surgery Dionte Snyder MD [address] [place] [address] 10/08/2022 Office Visit [facility]oped[facility] Eliezer Gifford, DO [address] [facility] [address] 10/10/2022 Office Visit Internal Medicine Marcela Pinto MD [address] [place], [place] [id number] 11/04/2022 Office Visit Hematology Oncology Ida Cueva CRNP [address] [place] [address] 01/03/2023 Office Visit Cardiology Hammad Lopez, DO [address] [facility] [place] [address] Scheduled Orders Name Type Priority Associated Diagnoses Orde r Schedule [id number] , QN Lab Routine Asthma with severity to be determined COPD, group B, 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 ([facility]) Expected: 08/15/2022, Expires: 08/15/2023 Health Maintenance Due Date Last Done Comments [...] COPD 07/29/2023 07/29/2022 CKD PHOS USE SMARTSET 86845 08/05/202307/14, 02/19/2022, 03/09/2021, Additional history exists CKD HGB USE SMARTSET 37973 08/12/202308/12, 08/06/2022, 08/05/2022, Additional history exists DXA Scan 08/08/2025 08/08/2020, 04/13, 06/19/2010, Additional history exists DTaP,Tdap,and Td Vaccines (2 - Td or Tdap) 06/04/2028 06/04/2018, 02/28/2009 Hepatitis B Aged Out 10/01/2017, 04/12, 03/20/2017 No longer eligible based on patient's age to complete this topic Pneumococcal Vaccine: 65+ Years Completed 04/01/2022, 03/28/2015, 05/21/2006 Influenza Vaccine (FLU shot) Completed , 07/10/2021, [...] status, unspecified part of intestinal tract- Primary Protein-calorie malnutrition, unspecified severity (HCC) Hospital discharge follow-up Other follow-up examination Type 2 diabetes mellitus with hemoglobin A1c goal of less than 7.5% (HCC) Chronic hypoxemic respiratory failure (HCC) Chronic respiratory failure Hyperlipidemia with target LDL less than 100 Other and unspecified hyperlipidemia Subclinical hyperthyroidism Thyrotoxicosis without mention of goiter or other cause, without mention of thyrotoxic crisis or storm Type 2 diabetes mellitus with stage 3a chronic kidney disease, without long-term current use of insulin (HCC) Asthma with severity to be determined HTN, goal below 140/90 Unspecified essential hypertension Pulmonary HTN (HCC) Other chronic pulmonary heart diseases Paroxysmal atrial fibrillation (HCC) Atrial fibrillation Urinary tract infection without hematuria, site unspecified COPD, group B, 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 (HCC) documented in this encounter Advance Directives Documents on File Type Date Recorded 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
--- OUTSIDE RECORDS SUMMARY | 2023-06-18 02:37 | External Medical Summary | Summary of Care ---
Author Name Unknown Organization [place] [address] Care Team Providers Care Residential Driver Name Role Phone Marcela Pinto MD Primary Care Provider + Reason for Visit * Reason Onset Date Comments Advice 08/20/2022 Encounter Details Date Type Department Care Team Description 08/20/2022 Telephone General Internal Medicine [facility] [address] [facility] [place] [address] Marcela Pinto MD [address] [place] [address] Advice Allergies Active Allergy Reactions Severity Noted Date Comments Valsartan 07/10/2010 Enalapril 05/21/2006 Escitalopram Oxalate Nausea/vomiting 10/11/2009 Nauseated Iodinated Diagnostic Agents Nausea/vomiting 05/2010 IV Contrast Iodine Hives 12/18/2009 IV Contrast Metoprolol Tartrate 11/18/2006 Made pulse low [place] Oil-Black Currant-Vit E 07/10/2010 Verapamil 03/21/2004 Bupropion [...] Respimat 1.25 MCG/ACT Inhalation Aerosol Solution (Tiotropium [place] Monohydrate) Inhale by mouth 2 Puffs daily [...] Capsule Delayed Release (PriLOSEC)Indicatio ns:Ischemic colitis ([facility]) [...] Oral Tablet Extended Release 24 Hour (toPROL XL)Indications: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 08/21/2021,12/22/2020,2020 COVID-19, LNP-s, No Preserve , Tyler-sucrose, Ages 12+ (Pfizer) 04/16/2022 Hepatitis B, 20+ yrs 10/01/2017,04/21/2017,03/20 Pneumococcal Conjugate Vacc, 13 Valent (Prevnar) 03/28/2015 Pneumococcal Conjugate Vacci ne, 20-valent ([id number]) 04/01/2022 Pneumococcal Polysaccharide PPV23 (Pneumovax) 05/21/2006 Seasonal [...] Miscellaneous Notes * Telephone Encounter - Angelina Lugo Kailash, NICOL - 08/21/2022 9:14 AM EST Spoke with Raissa from [facility]. IV ABX ordered until tomorrow. They can not supply any more supplies after tomorrow. [facility] needs extension orders or DC orders. Order could be to DC ABX and maintain IV line per protocol. ID encounter from Nellie Mckay RP yesterday says: Notified by inpatient ID pharmacist of voicemail left by Jana pharmacist at [facility] inquiring about end of therapy plans for ertapenem - contact number for update: [phone]. Per OPAT note, tentative end date 08/22/[address] abdomen to assess improvement of intraabdominal infection. It appears CT imaging may need to be ordered. Routing to ID nurse navigator, ID physician. Nellie Mckay RPh, PharmD, BCPS [facility] Clinical Pharmacist, Antimicrobial Stewardship/Infectious Disease [facility] 08/20/2022, 9:18 AM Please advise. * Telephone [...] Solis - 08/20/2022 8:22 AM EST Chart [facility] home health calling to ask if the Ertapenem iv will finish on time or will they need to send more medication. If it does finish, there needs to be orders for Home Health to remove the IV access Please call [facility] at [phone] Please advise Thank you, Anastasiia Oleary, [facility] [employer]ier [employer] [facility] 08/20/2022,8:28 AM documented in this encounter Plan of Treatment Upcoming Encounters Date Type Specialty Care Team Description 09/11/2022 Office Visit General Surgery Dionte Snyder MD [address] [facility] [place] [address] 09/24/2022 Office Visit Orthopedics Eliezer Gifford, [address] [place] [address] 10/10/2022 Office Visit Internal Medicine [facility] [address] [facility] [address] 11/04/2022 Office Visit Hematology Oncology Ida Cueva CRNP [address] [place] [address] 01/03/2023 Office Visit Cardiology Hammad Lopez, DO [address] [place] [address] Health Maintenance Due Date Last Done Comments [...] Additional history exists CKD PHOS USE SMARTSET 45528 08/05/202307/14, 02/19/2022, 03/09/2021, Additional history exists O2 ASSESSMENT COMPLETED IN PAST YEAR FOR COPD 08/15/2023 08/15/2022 CKD HGB USE SMARTSET 75666 08/19/202308/19, 08/12/2022, 08/06/2022, Additional history exists DXA [...] daniel occurred with: Not Discussed Care Teams Residential Driver Relationship Specialty Start Date End Date Marcela Pinto MD [address] [facility] [place] [address] PCP - General Internal Medicine 08/04/14 documented as of this encounter
--- OUTSIDE RECORDS SUMMARY | 2023-06-18 02:37 | External Medical Summary | Summary of Care ---
Author Name Unknown Organization [place] [address] Care Team Providers Care Middle School Technology Teacher Name Role Phone Marcela Pinto MD Primary Care Provider + Reason for Visit * Reason Comments case management HERMAN/CM comp Encounter Details Date Type Department Care Team Description 08/14/2022 Manager Internet Retails SalesWood Car Builder[address] [place] [address] Carmen Sahu, RN 56 [facility] E[place] [phone] Diverticulitis of intestine with abscess, unspecified bleeding status, unspecified part of intestinal tract* Allergies Active Allergy Reactions Severity Noted Date Comments Valsartan 07/10/2010 Enalapril 05/21/2006 Escitalopram Oxalate Nausea/vomiting 10/11/2009 Nauseated Iodinated Diagnostic Agents Nausea/vomiting 05/2010 IV Contrast Iodine Hives 12/18/2009 IV Contrast Metoprolol Tartrate 11/18/2006 Made pulse low [place] Oil-Black Currant-Vit E 07/10/2010 Verapamil 03/21/2004 Bupropion Hcl 10/30/2009 Makes pt sick in the stomach documented as of this encounter (statuses as of 08/14/2022) Medications Medication Sig Dispensed Refills Start Date [...] MEQ Oral Tablet Extended Release (Potassium Chloride Ann[place]ia ER)Indications:HTN, goal below 140/90 TAKE 1 TABLET BY MOUTH EVERY DAY 90 Tablet 3 09/28/2021 Active Spiriva Respimat 1.25 MCG/ACT Inhalation Aerosol Solution (Tiotropium [place] Monohydrate) Inhale by mouth 2 Puffs daily [...] Oral Tablet Extended Release 24 Hour (toPROL XL)Indications: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 135 Tablet 3 08/09/2022 Active documented as of this encounter (statuses as of 08/14/2022) Active Problems Problem Noted Date Diverticulitis of [...] as of this encounter (statuses as of 08/14/2022) Resolved Problems Problem Noted Date Resolved Date [...] Hypoxemia 10/08/2011 10/30/2015 Genetic Sleep Disorder Research Other*[id number] 07/25/2011 05/15/2016 COPD, moderate 07/19/2011 07/28/2019 Overview: [...] as of this encounter (statuses as of 08/14/2022) Immunizations Name Administration Dates Next Due COVID-19 [...] as of this encounter Progress Notes * Carmen Sahu RN - 08/14/2022 2:48 PM EDT Manager Internet Retails Sales Progress Note: Date: 08/14/22 Current Patient Tier: 2 Assessment: Case Management Assessment Is this call for a hospital, fpc or rehab facility discharge to home? Yes Pt admitted to [facility] 07/25/22-07/29/22 d/t diverticulitis w/ intestine abscess. Discharged to [facility] w/ IV ertanpenem 1 gram IV Q day x 24 days (until 08/22/22). Transitioned from [facility] 08/08/22 w/ home infusion provided by [facility] for nursing, PT/OT w/ [facility]. PCP appt 08/15/22. Readmission risk score 19. Review of Current goals: Connected with patient via telephone. Pt. Noted the following: CM/HERMAN comp- Called pt a number listed. She lives alone in a mobile home w/ daughter living near by. She is independent w/ ADLs, meal prep and medication management. Daughter provides transportation. She uses [facility] in [place] for medications. She has SPC, walker and shower chair. She has drain right abd that she/daughter monitor and empty. Plan to remove drainage once drainage <10ml daily x 2 days. Daughter administers IV abx daily until 08/22/22. She admits to some left sided abd "soreness" w/ some activity. She has oxycodone/acetaminophen 5/325mg PO 1 tab PO Q6hr prn. Admits to feeling somewhat on unsteady on her feet but reports gait is improving and each day. She is now able to ambulate in her home w/o SPC. Uses home O2 2L during the day and 4L @HS. SOB w/ activity such as walking >household distance/ exertion. Appetite remains decreased and she has loose BMdaily. She believes this is r/t the IV abx. Is taking probiotic daily. Reports baseline edema ankles and feet depending on her activity level. Sleeps well. Admits to fall, unsure of when, she reports she had pain in right arm and left go of the railing and fell backward down 3-4 steps. Admits she has problem/pain right shoulder and knows she needs an injection but is waiting until she heals from this infection. Does not have ACP. Is agreeable to CM sending documents. Declines SAJAN home visit. Denies needs for falls alert system. Is agreeable to IVR and will plan for calls on Fridays. Has PCP d/c follow up 08/15/22 Denies CM needs at this time. Discussed the following patient-centered CM goals with the patient during this discussion: -Prevent post-surgical complications -Status: On Track denies s/s infection. -SAFETY: Prevent falls or injuries -Status: On Track reports gait improving daily. -Prevention: Prevent admission/readmission -Status: On Track reviewed 3 red flags to report to CM/PCP. Plan for Future Contacts: Plan to follow up early next week to check progress on the following goals/needs safety/prevention. Noting that contacts from the following parties will occur this week: PCP office visit as additional contacts per workflow. Advancement/Closure Plan: CM Plan : Keep patient at current Tier with reassessment per workflow. Patient provided CM contact information and encouraged to call with any changes in condition. SNP Member? No Does this patient qualify for an annual wellness visit? Yes, not discussed PCP Notified of enrollment in CM/HM program: Yes Is Provider in agreement with POC? Yes Carmen Sahu RN Outpatient Case Management documented in this encounter Plan of Treatment Upcoming Encounters Date Type Specialty Care Team Description 08/15/2022 Office Visit Internal Medicine Marcela Pinto MD 200 [facility] [place] [address] 09/11/2022 Office Visit General Surgery Dionte Snyder MD [address] [place] [address] 10/08/2022 Office Visit [facility]oped[facility]iezer Gifford, DO [facility] [address] 10/10/2022 Office Visit Internal Medicine Marcela Pinto MD 200 [facility] [place] [address] 11/04/2022 Office Visit Hematology Oncology Ida Cueva CRNP [address] [place] [address] 01/03/2023 Office Visit Cardiology Hammad Lopez, DO [address] [facility] [place] [address] Health Maintenance Due Date Last Done Comments [...] COPD 07/29/2023 07/29/2022 CKD PHOS USE SMARTSET 27628 08/05/202307/14, 02/19/2022, 03/09/2021, Additional history exists CKD HGB USE SMARTSET 54311 08/12/202308/12, 08/06/2022, 08/05/2022, Additional history exists DXA [...] Primary documented in this encounter Advance Directives Documents on File Type Date Recorded Patient Supervisor Cleaning And Annealing Expl anation Advanced 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 Directives occurred with: Not Discussed Care Teams Middle School Technology Teacher Relationship Specialty Start Date End Date aMrcela Pinto MD [address] [place] [address] PCP - General Internal Medicine 08/04/14 documented as of this encounter
--- OUTSIDE RECORDS SUMMARY | 2023-06-18 02:37 | External Medical Summary | Summary of Care ---
Author Name Unknown Organization [place] [address] Care Team Providers Care Consignee Name Role Phone Marcela Pinto MD Primary Care Provider + Reason for Visit * Reason Onset Date Comments Advice 08/20/2022 Encounter Details Date Type Department Care Team Description 08/20/2022 Telephone General Internal Medicine [facility] [address] [place] [address] Marcela Pinto MD [address] [place] [address] Advice Allergies Active Allergy Reactions Severity Noted Date Comments Valsartan 07/10/2010 Enalapril 05/21/2006 Escitalopram Oxalate Nausea/vomiting 10/11/2009 Nauseated Iodinated Diagnostic Agents Nausea/vomiting 05/2010 IV Contrast Iodine Hives 12/18/2009 IV Contrast Metoprolol Tartrate 11/18/2006 Made pulse low [place] Oil-Black Currant-Vit E 07/10/2010 Verapamil 03/21/2004 Bupropion [...] Respimat 1.25 MCG/ACT Inhalation Aerosol Solution (Tiotropium [place] Monohydrate) Inhale by mouth 2 Puffs daily [...] disorder with single episode, in partial remission ([facility]),HECTOR (generalized anxiety disorder) TAKE 1 TABLET BY MOUTH EVERY DAY IN THE MORNING 90 Tablet 1 06/12/2022 Active Omeprazole 20 MG Oral Capsule Delayed Release (PriLOSEC)Indicatio ns:Ischemic colitis ([facility]) TAKE 1 CAPSULE BY MOUTH [...] Oral Tablet Extended Release 24 Hour (toPROL XL)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 akin 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 ([facility]),NICM (nonischemic cardiomyopathy) ([facility]),Presence of Watchman left atrial appendage [...] Hypoxemia 10/08/2011 10/30/2015 Genetic Sleep Disorder Research Other*[id number] 07/25/2011 05/15/2016 COPD, moderate 07/19/2011 07/28/2019 Overview: [...] mRNA, LNP-s, No Pre serve, 2-Dose Series ([employer]) 08/21/2021,12/22/2020,2020 COVID-19, LNP-s, No Preserve , Tyler-sucrose, Ages 12+ (Pfizer) 04/16/2022 Hepatitis B, 20+ yrs 10/01/2017,04/21/2017,03/20 Pneumococcal Conjugate Vacc, 13 Valent (Prevnar) 03/28/2015 Pneumococcal Conjugate Vacci ne, 20-valent ([id number]) 04/01/2022 Pneumococcal Polysaccharide PPV23 (Pneumovax) 05/21/2006 Seasonal [...] Miscellaneous Notes * Telephone Encounter - JORDAN Devries - 08/21/2022 9:12 AM EST Reason for patient's call: Requesting to speak nurse Caller was transferred to [facility] at the nurse line. * Telephone Encounter - Teresita Raymundo LPN - 08/21/2022 8:28 AM EST See TE from 08/20/22 - sent to ID * Telephone Encounter - CRISTIANO Solis Tech - 08/20/2022 8:22 AM EST Chart [facility] home health calling to ask if the Ertapenem iv will finish on time or will they need to send more medication. If it does finish, there needs to be orders for Home Health to remove the IV access Please call [facility] at [phone] Please advise Thank you, Anastasiia Oleary, [facility] Qc Lab Technician II [facility] 08/20/2022,8:28 AM documented in this encounter Plan of Treatment Upcoming Encounters Date Type Specialty Care Team Description 09/11/2022 Office Visit General Surgery Dionte Snyder MD [address] [place], [place] [phone] 09/24/2022 Office Visit Orthopedics Eliezer Gifford, DO [facility] [place] [address] 10/10/2022 Office Visit Internal Medicine Marcela Pinto MD [address] [place], [place] [phone] 11/04/2022 Office Visit Hematology Oncology Ida Cueva CRNP [address] [place] [address] 01/03/2023 Office Visit Cardiology Hammad Lopez, DO [address] [place] [address] Health Maintenance Due Date Last Done Comments [...] Additional history exists CKD PHOS USE SMARTSET 65931 08/05/202307/14, 02/19/2022, 03/09/2021, Additional history exists O2 ASSESSMENT COMPLETED IN PAST YEAR FOR COPD 08/15/2023 08/15/2022 CKD HGB USE SMARTSET 36901 08/19/202308/19, 08/12/2022, 08/06/2022, Additional history exists DXA [...] daniel occurred with: Not Discussed Care Teams Consignee Relationship Specialty Start Date End Date Marcela Pinto MD [address] [place] [address] PCP - General Internal Medicine 08/04/14 documented as of this encounter
--- OUTSIDE RECORDS SUMMARY | 2023-06-18 02:37 | External Medical Summary | Summary of Care ---
Author Name Unknown Organization [place] [address] Care Team Providers Care Manager Combination Name Role Phone Marcela Pinto MD Primary Care Provider + Reason for Visit * Reason Onset Date Comments Order Request 08/20/2022 Encounter Details Date Type Department Care Team Description 08/20/2022 Telephone Infectious Disease, [place] [address] [phone] [facility] [address] [place] [address] Order Request Allergies Active Allergy Reactions Severity Noted Date Comments Valsartan 07/10/2010 Enalapril 05/21/2006 Escitalopram Oxalate Nausea/vomiting 10/11/2009 Nauseated Iodinated Diagnostic Agents Nausea/vomiting 05/2010 IV Contrast Iodine Hives 12/18/2009 IV Contrast Metoprolol Tartrate 11/18/2006 Made pulse low [place] Oil-Black Currant-Vit E 07/10/2010 Verapamil 03/21/2004 Bupropion [...] Respimat 1.25 MCG/ACT Inhalation Aerosol Solution (Tiotropium [place] Monohydrate) Inhale by mouth 2 Puffs daily [...] Oral Capsule Delayed Release (PriLOSEC)Indicatio ns:Ischemic colitis ([facility]) TAKE 1 CAPSULE BY MOUTH [...] Oral Tablet Extended Release 24 Hour (toPROL XL)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 akin 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 ([facility]),NICM (nonischemic cardiomyopathy) ([facility]),Presence of Watchman left atrial appendage [...] Hypoxemia 10/08/2011 10/30/2015 Genetic Sleep Disorder Research Other*[id number] 07/25/2011 05/15/2016 COPD, moderate 07/19/2011 07/28/2019 Overview: [...] mRNA, LNP-s, No Pre serve, 2-Dose Series ([employer]) 08/21/2021,12/22/2020,2020 COVID-19, LNP-s, No Preserve , Tyler-sucrose, Ages 12+ (Pfizer) 04/16/2022 Hepatitis B, 20+ yrs 10/01/2017,04/21/2017,03/20 Pneumococcal Conjugate Vacc, 13 Valent (Prevnar) 03/28/2015 Pneumococcal Conjugate Vacci ne, 20-valent ([id number]) 04/01/2022 Pneumococcal Polysaccharide PPV23 (Pneumovax) 05/21/2006 Seasonal [...] encounter Miscellaneous Notes * Telephone Encounter - Nellie Mckay RPh - 08/20/2022 9:13 AM EST Notified by inpatient ID pharmacist of voicemail left by conner Bates at [facility] inquiring about end of therapy plans for ertapenem - contact number for update: [phone]. Per OPAT note, tentative end date 08/22/[address] abdomen to assess improvement of intraabdominal infection. It appears CT imaging may need to be ordered. Routing to ID nurse navigator, ID physician. Nellie Mckay RPh, PharmD, BCPS [facility] Clinical Pharmacist, Antimicrobial Stewardship/Infectious Disease [facility] 08/20/2022, 9:18 AM documented in this encounter Plan of Treatment Upcoming Encounters Date Type Specialty Care Team Description 09/11/2022 Office Visit General Surgery Dionte Snyder MD [address] [place] [address] 10/08/2022 Office Visit Orthopedics Eliezer Gifford, DO [address] [facility] [place] [address] 10/10/2022 Office Visit Internal Medicine Marcela Pinto MD 200 [place], [place] [phone] 11/04/2022 Office Visit Hematology Oncology Ida Cueva CRNP 400 [facility] [place] [address] 01/03/2023 Office Visit Cardiology Hammad Lopez, DO [address] [place] [address] Health Maintenance Due Date Last Done Comments [...] Additional history exists CKD PHOS USE SMARTSET 31507 08/05/202307/14, 02/19/2022, 03/09/2021, Additional history exists CKD HGB USE SMARTSET 92701 08/12/202308/12, 08/06/2022, 08/05/2022, Additional history exists O2 [...] occurred with: Not Discussed Care Teams Manager Combination Relationship Specialty Start Date End Date Marcela Pinto MD 200 [facility] [place] [address] PCP - General Internal Medicine 08/04/14 documented as of this encounter
--- OUTSIDE RECORDS SUMMARY | 2023-06-18 02:38 | External Medical Summary | Summary of Care ---
Author Name Unknown Organization [place] [address] Care Team Providers Care Product Designer Name Role Phone Marcela Pinto MD Primary Care Provider + Reason for Visit * Reason Comments eRx-Medication Refill Encounter Details Date Type Department Care Team Description 08/09/2022 Refill Cardiology, [facility] [address] [place] [address] Tavo Gerber CRNP 132 [facility] [place] [address] NICM (nonischemic cardiomyopathy) (HCC)*; Chronic 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); Presence of Watchman left atrial appendage closure device Allergies Active Allergy Reactions Severity Noted Date Comments Valsartan 07/10/2010 Enalapril 05/21/2006 Escitalopram Oxalate Nausea/vomiting 10/11/2009 Nauseated Iodinated Diagnostic Agents Nausea/vomiting 05/2010 IV Contrast Iodine Hives 12/18/2009 IV Contrast Metoprolol Tartrate 11/18/2006 Made pulse low [place] Oil-Black Currant-Vit E 07/10/2010 Verapamil 03/21/2004 Bupropion Hcl 10/30/2009 Makes pt sick in the stomach documented as of this encounter (statuses as of 08/09/2022) Medications Medication Sig Dispensed Refills Start Date [...] mg by mouth daily. 0 1 Active Klor-Con M20 20 MEQ Oral Tablet Extended Release (Potassium Chloride Annalisa ER)Indications:HTN , goal below 140/90 TAKE 1 TABLET BY MOUTH EVERY DAY 90 Tablet 3 1 Active Spiriva Respimat 1.25 MCG/ACT Inhalation Aerosol Solution (Tiotropium [place] Monohydrate) Inhale by mouth 2 Puffs daily [...] A DAY 12 g 1 2 Active Glimepiride 2 MG Oral Tablet (Amaryl) TAKE 1 TABLET BY MOUTH EVERY DAY WITH BREAKFAST 90 Tablet 1 2 Active Dicyclomine HCl 20 MG [...] THE EVENING. 135 Tablet 3 2 Active Metoprolol Succinate ER 25 MG Oral Tablet Extended Release 24 Hour (toPROL XL)Indications:Chr onic 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 135 Tablet 3 1 022 Discontinued documented as of this encounter (statuses as of 08/09/2022) Active Problems Problem Noted Date Diverticulitis of [...] as of this encounter (statuses as of 08/09/2022) Resolved Problems Problem Noted Date Resolved Date [...] Hypoxemia 10/08/2011 10/30/2015 Genetic Sleep Disorder Research Other*[id number] 07/25/2011 05/15/2016 COPD, moderate 07/19/2011 07/28/2019 Overview: [...] as of this encounter (statuses as of 08/09/2022) Immunizations Name Administration Dates Next Due COVID-19 mRNA, LNP-s, No Pre serve, 2-Dose Series ([employer]) 08/21/2021,12/22/2020,2020 COVID-19, LNP-s, No Preserve , [...] Miscellaneous Notes * Telephone Encounter - NIECY Holder - 08/09/2022 12:50 PM EDT Signed Prescriptions: Disp Refills Metoprolol Succinate ER 25 MG Oral Tablet *135 Ta*3 Sig: TAKE 1 TAB IN THE MORNING AND 1/2 TAB IN THE EVENING. Authorizing Provider: TAVO GERBER * Telephone Encounter - Yoan Lawson LPN - 08/09/2022 11:31 AM EDT Pending Prescriptions: Disp Refills Metoprolol Succinate ER 25 MG Oral Tablet*135 Ta*3 Sig: TAKE 1 TAB IN THE MORNING AND 1/2 TAB IN THE EVENING. * Telephone Encounter - Yoan Lawson LPN - 08/09/2022 11:30 AM EDT Did you pend patient's preferred pharmacy and medication before forwarding?yes Pharmacy: [id number] [address] [facility] Pending Prescriptions: Disp Refills Metoprolol Succinate ER 25 MG Oral Tablet*135 Ta*3 Sig: TAKE 1 TAB IN THE MORNING AND 1/2 TAB IN THE EVENING. Last Visit: 07/15/2022 (in office), Visit date not found (telemedicine) Next Visit: 01/03/2023 If no future appointments scheduled, and last appointment is greater than a year ago, please schedule patient for a follow-up appointment Last date the medication was ordered: 10/04/21 Is this request for a controlled substance?No [...] Lab Results Component Value Date/Time CREAT 0.8 08/06/2022 05:50 AM CREAT 1.15 (A) 06/21/2022 12:00 AM CREAT 1.0 05/27/2020 04:51 PM POTASSIUM 4.3 08/06/2022 05:50 AM POTASSIUM 4.0 06/21/2022 12:00 AM POTASSIUM 4.0 05/27/2020 04:51 PM [...] Visit Internal Medicine Marcela Pinto MD 200 [place] [address] 09/11/2022 Office Visit General Surgery Dionte Snyder MD [address] [place] [address] 10/08/2022 Office Visit Orthopedics Eliezer Gifford, DO [address] [facility] [place] [address] 10/10/2022 Office Visit Internal Medicine Marcela Pinto MD 200 [place] [address] 01/03/2023 Office Visit Cardiology Hammad Lopez, DO [address] [place] [address] Health Maintenance Due Date Last Done Comments [...] history exists GFR - Renal Function 02/04/2023 08/06/2022, 08/05/2022, 07/30/2022, Additional history exists Alb / Creat Ratio 02/19/2023 02/19/2022, , 07/27/2018, Additional history exists DIABETES-EYE EXAM 03/08/2023 03/08/2022, , 08/07/2020, Additional history exists O2 ASSESSMENT COMPLETED IN PAST YEAR FOR COPD 07/29/2023 07/29/2022 CKD PHOS USE SMARTSET 95497 08/05/2023 1001/2022, 02/19/2022, 03/09/2021, Additional history exists CKD HGB USE SMARTSET 37079 08/06/202308/06, 08/05/2022, 08/05/2022, Additional history exists DXA Scan 08/08/2025 [...] as of this encounter Visit Diagnoses Diagnosis NICM (nonischemic cardiomyopathy) (HCC)- Primary Other primary cardiomyopathies Chronic 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) Presence of Watchman left atrial appendage closure device documented in this encounter Advance Directives Documents on File Type Date Recorded 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 [place] [address] PCP - General Internal Medicine 08/04/14 documented as of this encounter
--- OUTSIDE RECORDS SUMMARY | 2023-06-18 02:38 | External Medical Summary | Summary of Care ---
Author Name Unknown Organization [place] [address] Care Team Providers Care Zinc Miner Blasting Name Role Phone Marcela Pinto MD Primary Care Provider + Reason for Visit * Reason Comments Follow Up Encounter Details Date Type Department Care Team Description 08/05/2022 Telemedicine Hematology/Oncology [facility] [address] [place], [place] [id number] Ida Cueva CRNP [address] [place] [address] Anemia of chronic disease*; Reactive thrombocytosis Allergies Active Allergy Reactions Severity Noted Date Comments Valsartan 07/10/2010 Enalapril 05/21/2006 Escitalopram Oxalate Nausea/vomiting 10/11/2009 Nauseated Iodinated Diagnostic Agents Nausea/vomiting 05/2010 IV Contrast Iodine Hives 12/18/2009 IV Contrast Metoprolol Tartrate 11/18/2006 Made pulse low [place] Oil-Black Currant-Vit E 07/10/2010 Verapamil 03/21/2004 Bupropion [...] EVERY DAY 90 Tablet 3 09/28/2021 Active Metoprolol Succinate ER 25 MG Oral Tablet Extended Release 24 Hour (toPROL XL)Indications:Hardscape Foreman akin 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),NICM (nonischemic cardiomyopathy) ([facility]),Presence of Watchman left atrial appendage closure device Take 1 tab in the morning and 1/2 tab in the evening. 135 Tablet 3 10/04/2021 Active Spiriva Respimat 1.25 MCG/ACT Inhalation Aerosol Solution (Tiotropium [place] Monohydrate) Inhale by mouth 2 Puffs daily [...] A DAY 12 g 1 01/31/2022 Active Glimepiride 2 MG Oral Tablet (Amaryl) TAKE 1 TABLET BY MOUTH EVERY DAY WITH BREAKFAST 90 Tablet 1 02/07/2022 Active Dicyclomine HCl 20 MG Oral Tablet [...] days. 24 g 0 07/29/2022 2 Active documented as of this encounter [...] Hypoxemia 10/08/2011 10/30/2015 Genetic Sleep Disorder Research Other*[id number] 07/25/2011 05/15/2016 COPD, moderate 07/19/2011 07/28/2019 Overview: [...] mRNA, LNP-s, No Pre serve, 2-Dose Series ([employer]) 08/21/2021,12/22/2020,2020 COVID-19, LNP-s, No Preserve , Tyler-sucrose, [...] as of this encounter Progress Notes * NIECY Beverly - 08/05/2022 4:33 PM EDT Hematology/Oncology Telephone Note [facility] Name: Nina Harrington Date: 08/05/2022 CHIEF COMPLAINT: Nina Harrington is a 81 year old female patient of Dr. Jose Maria Pinto completing a telephone visit in lieu of scheduled follow-up visit due to Covid-19 pandemic. Oncology history from patient chart, confirmed with patient. HEMATOLOGY/ONCOLOGY DIAGNOSIS: Anemia of chronic disease/inflammation Reactive thrombocytosis CURRENT TREATMENT: Ferrous sulfate 1 tab daily HISTORY OF PRESENT ILLNESS: Component Latest Ref Rng & Units 06/06/2022 06/07/2022 06/08/2022 06/09/2022 WBC 4.00 - 10.80 K/uL 15.12 (H) 9.21 10.49 9.08 RBC 3.85 - 5.15 M/uL 3.78 3.25 3.59 3.36 HGB 12.0 - 15.3 g/dL 10.4 (L) 8.8 (L) 9.7 (L) 9.2 (L) HCT 36.0 - 45.2 % 34.2 (L) 29.1 (L) 32.6 (L) 30.5 (L) MCV 81.5 - 97.5 fL 90.5 89.5 90.8 90.8 MCH 27.0 - 34.0 pg 27.5 27.1 27.0 27.4 MCHC 32.0 - 36.0 g/dL 30.4 30.2 29.8 30.2 RDW 11.5 - 15.5 % 15.6 15.6 15.7 15.9 MPV 6.6 - 11.1 fL 9.1 9.2 9.4 9.1 nRBCs <=0 /100 WBCs 0 0 0 0 PLT 140 - 400 K/uL 546 (H) 426 (H) 438 (H) 415 (H) Component Latest Ref Rng & Units 06/10/2022 WBC 4.00 - 10.80 K/uL 8.73 RBC 3.85 - 5.15 M/uL 3.37 HGB 12.0 - 15.3 g/dL 9.1 (L) HCT 36.0 - 45.2 % 30.2 (L) MCV 81.5 - 97.5 fL 89.6 MCH 27.0 - 34.0 pg 27.0 MCHC 32.0 - 36.0 g/dL 30.1 RDW 11.5 - 15.5 % 16.0 MPV 6.6 - 11.1 fL 9.0 nRBCs <=0 /100 WBCs 0 PLT 140 - 400 K/uL 410 (H) Patient with PMH including heart failure, Afib with Watchman,asthmaand COPDon 2L NC daytime and 4L NC night, DM II on oral antihyperglycemics, HTN, hyperthyroidism. Has also been suffering withrepeated bought's of diverticulitis and a colovesical fistula. Most recently hospitalized at the end of May.Chart review reveals that since 2018 baseline Hgb has been in the 10-11 range. Over the last year this has dropped into the 9-10 range. Also noted is intermittent thrombocytosis since 2019, platelet count in 400K range. Has been taking ferrous sulfate 1 tab daily for the last year, andis now taking with vitamin c. HOSPITAL COURSE 06/06/22 - 06/10/22 (focused): Nina Harrington [facility] she wastreated with non- operative management. she did well.she had adequate pain control with oral pain medications, had return of bowel function, [facility] diet[facility]. she was voiding without difficulty, ambulating, and was tolerating her diet. she was stable for discharge home on06/10/2022. Patient presents with daughter Stephani today. Patient reports intermittent rectal bleeding but this has not been an issue for the last couple years. Does take a baby aspirin d/t cardiac history. Was having some GI adverse effects from the oral iron but now that she is taking with vitamin c she seems to be tolerating it better. Takes colace and Miralax daily d/t chronic constipation. Reports on average she is in the ED a couple times a year with bowel problems and will require antibiotics. Thus far she has been told she is not a surgical candidate for treatment of her diverticulitis. Follows with endocrinology in [place] for hyperthyroidism and is treated with methimazole. Takes omeprazole twice a day as well. Was feeling weak right after discharge from [facility] in May but is starting to feelimproved. Denies dizziness. Energy level is poor but this is chronic for her. Has a poor appetite d/t issues with gastroparesis though feels like she has been eating better lately. Has chronic issueswith SOB that has not worsened. Patient is a nonsmoker. Denies drinking alcohol. Denies erythromelalgia, pruritus, or facial flushing. Was having flushing prior to starting on methimazole. Denies fevers or night sweats. Has never had a blood clot. Family history include mother and three maternal aunts with breast cancer. Patient continues to getmammograms. Brother with colon cancer and is currently being treated. Interval History: ADMISSION HISTORY & PHYSICAL EXAM 07/25/22 (focused): PRESENTING PROBLEM:Diverticulitis w/abscess HPI:Patient w/PMH of COPD, chronic respiratory failure (on 2 L NC during the day and 4 L NC at night), HFrEF, PAF (s/p watchman device so is no longer on anticoagulation), DM, recurrent diverticulitis, colovesicular fistula presents to ED today for diverticulitis w/abscess. Patient had hospitalization for diverticulitis in May (she was initially admitted to [facility] then she was transferred to [facility]). She was deemed high risk for surgery and she was managed conservatively and discharged onPO antibiotics. She ended up being admitted again to [facility] on 07/17/2022 for LLQ pain and hematochezia. She was found to have diverticulitis w/small non-drainable abscess. Surgery recommended conser vative management. ID was consulted and recommended 4 weeks of zosyn (end date 08/14/2022), they were unsuccessful in getting a PICC line placed yesterday. However, her symptoms were not gettingbetter so they got a repeat CT scan which showed worsening of the abscess. Patient was transferred to [facility] for IR procedure to drain the abscess. Patient states she still has LLQ and LUQ, sharp and stabbing in nature. She gets nauseated if she tries to eat anything but she hasn't vomited. She reports her stools are loose and dark in appearance. Of note, she required 1 unit PRBCs during her stay at [facility]. HOSPITAL COURSE 07/25/22 - 07/29/22 (focused): Patient admitted to a medical bed. Patient underwentIR placement of a pelvic drainage catheter without complications. We consulted Infectious Disease for final antibiotic regimen. Infectious Disease recommended ertapenem 1 g daily until August 22.Patient will need weekly CBC with diff and BMP while on IV antibiotics. Patient's nausea and abdominal pain improved and patient felt much better. Care management was consulted for discharge planning. Care management arranged for transfer to [facility]. IMPRESSION: Anemia of chronic disease/inflammation Reactive thrombocytosis PLAN: Patient recently admitted again to [facility] with diverticulitis with abscess. Now in [facility] for rehab. Follow up lab results reviewed with daughter who is POA: Consistent with anemia of inflammation with reactive thrombocytosis No definitive signs of iron deficiency at this time but with level of inflammation should continue PO iron supplement at this time. After connecting to the patient via telephone, the patient was identified by name and date of . Patient was then informed that this was a telephone call only visit. The patient agreed to participate. Visit Disposition: Routine follow-up in three months with physician with cbc/diff, cmp, iron screenand ferritin Total call duration was 5 minutes. INTERVAL HISTORY: Nina Harrington is a 81 year old female with a history as outlined above. Being contacted for a telephone follow-up visit today. Reviewed labs with daughter Stephani today who is her POA. Patient currently in [facility]. Review of patient's allergies indicates: Allergen Reactions Diovan [Valsartan] Enalapril Escitalopram Oxalate Nausea/vomiting Nauseated Iodinated Diagnostic Agents Nausea/vomiting IV Contrast Iodine Hives IV Contrast Metoprolol Tartrate Made pulse low [place] Oil-Black Currant-Vit E Verapamil Wellbutrin [Bupropion Hcl] [...] BY MOUTH EVERY DAY 90 Tablet 3 Metoprolol Succinate ER 25 MG Oral Tablet Extended Release 24 Hour (toPROL XL) Take 1 tab in the morning and 1/2 tab in the evening. 135 Tablet 3 Spiriva Respimat 1.25 MCG/ACT Inhalation Aerosol Solution (Tiotropium [place] Monohydrate) Inhale by mouth 2 Puffs daily [...] 4 TIMES A DAY 12 g 1 Glimepiride 2 MG Oral Tablet (Amaryl) TAKE 1 TABLET BY MOUTH EVERY DAY WITH BREAKFAST 90 Tablet1 Dicyclomine HCl 20 MG Oral Tablet (Bentyl) [...] HOURS NEEDED FOR NAUSEA 60 Tablet 2 HYDROcodone-Acetaminophen 5-325 MG Oral Tablet Take by mouth 1 Tablet every 6 hours as needed for Pain, Mild. 120 Tablet 0 Sertraline HCl 25 MG Oral Tablet (Zoloft) [...] 1 Tablet before bedtime. 60 Tablet 6 Polyethylene Glycol 3350 17 GM Oral Packet (Miralax) Take by mouth 17 g 2 times a day as neededfor Constipation. methIMAzole 5 MG Oral Tablet (Tapazole) Take by mouth 5 mg in the morning. ertapenem INJ IV (AMBULATORY) Administer intravenously 1 g in the morning for 24 days. 24 g 0 No current facility-administered medications for this visit. Past Medical History: Diagnosis Date ACEI/ARB contraindicated Asthma Carpal tunnel syndrome DM type 2, goal: symptom mgmt (HCC) Generalized osteoarthritis HTN, goal below 140/90 Mixed dyslipidemia REVIEW OF SYSTEMS: see interval history; otherwise WNL OBJECTIVE: Vital signs not available for review at time of call Wt Readings from Last 5 Encounters: 07/25/22 99.9 kg (220 lb 2.1 oz) 07/15/22 96.6 kg (213 lb) 06/25/22 103.8 kg (228 lb 12.8 oz) 06/06/22 101.3 kg (223 lb 4.8 oz) 05/13/22 104.7 kg (230 lb 14.4 oz) PHYSICAL EXAM: N/A, telephone visit LABS: Results for orders placed or performed in visit on 08/05/22 RENAL FUNCTION PANEL Result Value Ref Range BUN 11 6 - 20 mg/dL Creatinine 0.8 0.5 - 1.0 mg/dL Estimated Glomerular Filtration Rate 72 >=60 mL/min Sodium 139 135 - 146 mmol/L Potassium 4.4 3.5 - 5.1 mmol/L Chloride 100 98 - 107 mmol/L CO2 32 22 - 32 mmol/L Anion Gap 7 7 - 15 mmol/L Glucose 86 70 - 120 mg/dL Calcium 9.0 8.4 - 10.2 mg/dL Albumin 3.0 (L) 3.8 - 5.0 g/dL Phosphorus 3.5 2.5 - 4.8 mg/dL CBC Result Value Ref Range WBC 13.52 (H) 4.00 - 10.80 K/uL RBC 3.31 3.85 - 5.15 M/uL HGB 9.3 (L) 12.0 - 15.3 g/dL HCT 30.4 (L) 36.0 - 45.2 % MCV 91.8 81.5 - 97.5 fL MCH 28.1 27.0 - 34.0 pg MCHC 30.6 32.0 - 36.0 g/dL RDW 16.7 11.5 - 15.5 % PLT 374 140 - 400 K/uL MPV 9.8 6.6 - 11.1 fL DIFFERENTIAL, AUTOMATED Result Value Ref Range WBC 13.52 (H) 4.00 - 10.80 K/uL Neutrophils % 47.7 40.0 - 75.0 % Lymphocytes % 37.0 18.0 - 42.0 % Monocytes % 10.7 1.0 - 11.0 % Eosinophils % 4.3 0.0 - 6.0 % Basophils % 0.3 0.0 - 2.0 % Absolute Neutrophils 6.45 1.80 - 7.70 K/uL Absolute Lymphocytes 5.00 (H) 1.00 - 4.80 K/ul Absolute Monocytes 1.45 (H) 0.00 - 1.10 K/uL Absolute Eosinophils 0.58 0.00 - 0.70 K/uL Absolute Basophils 0.04 0.00 - 0.20 K/uL *Note: Due to a large number of results and/or encounters for the requested time period, some results have not been displayed. A complete set of results can be found in Results Review. Please, see top of note for IMPRESSION and PLAN. NIECY Schaffer documented in this encounter Plan of Treatment Upcoming Encounters Date Type Specialty Care Team Description 08/15/2022 Office Visit Internal Medicine Marcela Pinto MD [address] [place] [address] 09/11/2022 Office Visit General Surgery Dionte Snyder MD [address] [place], [place] [phone] 10/08/2022 Office Visit Orthopedics [facility]iezer Gifford, [facility] [address] [facility] [place] [address] 10/10/2022 Office Visit Internal Medicine Marcela Pinto MD [address] [facility] [place] [address] 01/03/2023 Office Visit Cardiology Hammad Lopez, DO [address] [place] [address] Scheduled Orders Name Type Priority Associated Diagnoses Orde r Schedule CBC WITH WBC DIFFERENTIAL Lab STAT Anemia of chronic disease Reactive thrombocytosis Expected: 11/05/2022 (Approximate), Expires: 02/03/2023 COMPREHENSIVE METABOLIC PANEL Lab STAT Anemia of chronic disease Reactive thrombocytosis Expected: 11/05/2022 (Approximate), Expires: 02/03/2023 IRON SCREEN, INCLUDING TIBC Lab STAT Anemia of chronic disease Reactive thrombocytosis Expected: 11/05/2022 (Approximate), Expires: 02/03/2023 FERRITIN Lab STAT Anemia of chronic disease Reactive thrombocytosis Expected: 11/05/2022 (Approximate), Expires: 02/03/2023 Health Maintenance Due Date Last Done Comments [...] COPD 07/29/2023 07/29/2022 CKD PHOS USE SMARTSET 69756 08/05/2023 1001/2022, 02/19/2022, 03/09/2021, Additional history exists CKD HGB USE SMARTSET 75077 08/06/202308/06, 08/05/2022, 08/05/2022, Additional history exists DXA [...] encounter Visit Diagnoses Diagnosis Anemia of chronic disease- Primary Anemia of other chronic disease Reactive thrombocytosis documented in this encounter Advance Directives Documents on File Type Date Recorded Patient Engineering Psychologist Expl anation Advanced 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 Directives occurred with: Not Discussed Care Teams Zinc Miner Blasting Relationship Specialty Start Date End Date Marcela Pinto MD [address] [place] [address] PCP - General Internal Medicine 08/04/14 documented as of this encounter
--- OUTSIDE RECORDS SUMMARY | 2023-06-18 02:38 | External Medical Summary | Summary of Care ---
Author Name Unknown Organization [place] [address] Care Team Providers Care Appeals Analyst Name Role Phone Marcela Pinto MD Primary Care Provider + Encounter Details Date Type Department Care Team Description 08/08/2022 Scan Encounter General Internal Medicine [facility] [address] [place] [address] Marcela Pinto MD [address] [place] [address] <No scans attached> Allergies Active Allergy Reactions Severity Noted Date Comments Valsartan 07/10/2010 Enalapril 05/21/2006 Escitalopram Oxalate Nausea/vomiting 10/11/2009 Nauseated Iodinated Diagnostic Agents Nausea/vomiting 05/2010 IV Contrast Iodine Hives 12/18/2009 IV Contrast Metoprolol Tartrate 11/18/2006 Made pulse low [place] Oil-Black Currant-Vit E 07/10/2010 Verapamil 03/21/2004 Bupropion Hcl 10/30/2009 Makes pt sick in the stomach documented as of this encounter (statuses as of 08/12/2022) Medications Medication Sig Dispensed Refills Start Date [...] Respimat 1.25 MCG/ACT Inhalation Aerosol Solution (Tiotropium [place] Monohydrate) Inhale by mouth 2 Puffs daily [...] Pain, Mild. 120 Tablet 0 08/08/2022 Active documented as of this encounter (statuses as of 08/12/2022) Active Problems Problem Noted Date Diverticulitis of [...] as of this encounter (statuses as of 08/12/2022) Resolved Problems Problem Noted Date Resolved Date [...] Hypoxemia 10/08/2011 10/30/2015 Genetic Sleep Disorder Research Other*[id number] 07/25/2011 05/15/2016 COPD, moderate 07/19/2011 07/28/2019 Overview: [...] as of this encounter (statuses as of 08/12/2022) Immunizations Name Administration Dates Next Due COVID-19 mRNA, LNP-s, No Pre serve, 2-Dose Series ([employer] 08/21/2021,12/22/2020,2020 COVID-19, LNP-s, No Preserve , [...] Internal Medicine Marcela Pinto MD [address] [facility] [place] [place] [address] 09/11/2022 Office Visit General Surgery Dionte Snyder MD [address] [place] [address] 10/08/2022 Office Visit Orthopedics Eliezer Gifford, DO [address] [place] [address] 10/10/2022 Office Visit Internal Medicine Marcela Pinto MD [address] [place] [address] 01/03/2023 Office Visit Cardiology Hammad Lopez, DO [address] [place] [address] Health Maintenance Due Date Last Done Comments [...] COPD 07/29/2023 07/29/2022 CKD PHOS USE SMARTSET 51457 08/05/202307/14, 02/19/2022, 03/09/2021, Additional history exists CKD HGB USE SMARTSET 29279 08/06/202308/06, 08/05/2022, 08/05/2022, Additional history exists DXA [...] filedocumented as of this encounter Advance Directives Documents on File Type Date Recorded Patient Slip Seat Coverer Expl anation Advanced 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 Directives occurred with: Not Discussed Care Teams Appeals Analyst Relationship Specialty Start Date End Date Marcela Pinto MD [address] [place] [facility] [address] PCP - General Internal Medicine 08/04/14 documented as of this encounter
--- OUTSIDE RECORDS SUMMARY | 2023-06-18 02:38 | External Medical Summary | Summary of Care ---
Author Name Unknown Organization [place] [address] Care Team Providers Care Scientologist Name Role Phone Marcela Pinto MD Primary Care Provider + Encounter Details Date Type Department Care Team Description 08/08/2022 Scan Encounter General Internal Medicine [facility] [address] [place] [address] Marcela Pinto MD [address] [place] [facility] [place] [address] <No scans attached> Allergies Active Allergy Reactions Severity Noted Date Comments Valsartan 07/10/2010 Enalapril 05/21/2006 Escitalopram Oxalate Nausea/vomiting 10/11/2009 Nauseated Iodinated Diagnostic Agents Nausea/vomiting 05/2010 IV Contrast Iodine Hives 12/18/2009 IV Contrast Metoprolol Tartrate 11/18/2006 Made pulse low [place] Oil-Black Currant-Vit E 07/10/2010 Verapamil 03/21/2004 Bupropion [...] 1.25 MCG/ACT Inhalation Aerosol Solution (Tiotropium [place] Monohydrate) Inhale by mouth 2 Puffs daily [...] Hypoxemia 10/08/2011 10/30/2015 Genetic Sleep Disorder Research Other*[id number] 07/25/2011 05/15/2016 COPD, moderate 07/19/2011 07/28/2019 Overview: [...] mRNA, LNP-s, No Pre serve, 2-Dose Series ([employer]) 08/21/2021,12/22/2020,2020 COVID-19, LNP-s, No Preserve , Tyler-sucrose, [...] Visit Internal Medicine Marcela Pinto MD [address] [facility] [place] [address] 09/11/2022 Office Visit General Surgery Dionte Snyder MD [address] [place] [address] 10/08/2022 Office Visit Orthopedics Eliezer Gifford, DO [address] [place] [address] 10/10/2022 Office Visit Internal Medicine Marcela Pinto MD [address] [facility] [place] [address] 11/04/2022 Office Visit Hematology Oncology [facility]da [facility]ueva [facility] [address] [facility] [place] [address] 01/03/2023 Office Visit Cardiology Hammad Lopez, DO [address] [place] [address] Health Maintenance Due Date Last Done Comments [...] COPD 07/29/2023 07/29/2022 CKD PHOS USE SMARTSET 29329 08/05/202307/14, 02/19/2022, 03/09/2021, Additional history exists CKD HGB USE SMARTSET 50103 08/06/202308/06, 08/05/2022, 08/05/2022, Additional history exists DXA [...] Documents on File Type Date Recorded Patient Cdl Service Technician Expl anation Advanced 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 Directives occurred with: Not Discussed Care Teams Scientologist Relationship Specialty Start Date End Date Marcela Pinto MD [address] [place] [address] PCP - General Internal Medicine 08/04/14 documented as of this encounter
--- OUTSIDE RECORDS SUMMARY | 2023-06-18 02:38 | External Medical Summary | Summary of Care ---
Author [place] [address] Care Team Providers Care Fire Control Officer Name Role Phone Marcela Pinto MD Primary Care Provider + Reason for Visit * Reason Onset Date Comments Advice 08/12/2022 Encounter Details Date Type Department Care Team Description 08/12/2022 Telephone Interventional Radiology, [facility] [address] [place] [address] Requisition, External Radiology [address] [place], [place] [id number] Advice Allergies Active Allergy Reactions Severity Noted Date Comments Valsartan 07/10/2010 Enalapril 05/21/2006 Escitalopram Oxalate Nausea/vomiting 10/11/2009 Nauseated Iodinated Diagnostic Agents Nausea/vomiting 05/2010 IV Contrast Iodine Hives 12/18/2009 IV Contrast Metoprolol Tartrate 11/18/2006 Made pulse low [place] Oil-Black Currant-Vit E 07/10/2010 Verapamil 03/21/2004 Bupropion [...] Respimat 1.25 MCG/ACT Inhalation Aerosol Solution (Tiotropium [place] Monohydrate) Inhale by mouth 2 Puffs daily [...] Capsule Delayed Release (PriLOSEC)Indicatio ns:Ischemic colitis ([facility]) TAKE 1 CAPSULE BY MOUTH [...] Oral Tablet Extended Release 24 Hour (toPROL XL)Indications:Glass Installer akin heart failure with reduced ejection fraction [...] Hypoxemia 10/08/2011 10/30/2015 Genetic Sleep Disorder Research Other*[id number] 07/25/2011 05/15/2016 COPD, moderate 07/19/2011 07/28/2019 Overview: [...] mRNA, LNP-s, No Pre serve, 2-Dose Series ([employer]) 08/21/2021,12/22/2020,2020 COVID-19, LNP-s, No Preserve , Tyler-sucrose, [...] Miscellaneous Notes * Telephone Encounter - JORDAN Balderrama - [...] Visit Internal Medicine Marcela Pinto MD [address] [place] [address] 09/11/2022 Office Visit General Surgery Dionte Snyder MD [address] [place] [address] 10/08/2022 Office Visit Orthopedics Eliezer Gifford DO [address] [place] [address] 10/10/2022 Office Visit Internal Medicine Marcela Pinto MD [address] [facility] [place] [address] 11/04/2022 Office Visit Hematology Oncology Ida Cueva CRNP [address] [place] [address] 01/03/2023 Office Visit Cardiology Hammad Lopez, DO [address] [place] [address] Health Maintenance Due Date Last Done Comments [...] COPD 07/29/2023 07/29/2022 CKD PHOS USE SMARTSET 73962 08/05/202307/14, 02/19/2022, 03/09/2021, Additional history exists CKD HGB USE SMARTSET 33847 08/06/202308/06, 08/05/2022, 08/05/2022, Additional history exists DXA [...] Documents on File Type Date Recorded 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
--- OUTSIDE RECORDS SUMMARY | 2023-06-18 02:38 | External Medical Summary | Summary of Care ---
Author Name Unknown Organization [place] [address] Care Team Providers Care Electrician Technician Name Role Phone Marcela Pinto MD Primary Care Provider + Reason for Visit * Reason Onset Date Comments Test Results 07/08/2022 LMOM 07/08 Encounter Details Date Type Department Care Team Description 07/08/2022 Telephone General Internal Medicine [facility] [address] [facility] [address] Marcela Pinto MD 200 [place] [address] Test Results ([facility] [place] 07/08) Allergies Active Allergy Reactions Severity Noted Date Comments Valsartan 07/10/2010 Enalapril 05/21/2006 Escitalopram Oxalate Nausea/vomiting 10/11/2009 Nauseated Iodinated Diagnostic Agents Nausea/vomiting 05/2010 IV Contrast Iodine Hives 12/18/2009 IV Contrast Metoprolol Tartrate 11/18/2006 Made pulse low [place] Oil-Black Currant-Vit E 07/10/2010 Verapamil 03/21/2004 Bupropion Hcl 10/30/2009 Makes pt sick in the stomach documented as of this encounter (statuses as of 08/07/2022) Medications Medication Sig Dispensed Refills Start Date [...] with reduced ejection fraction and diastolic dysfunction ([facility]),NICM (nonischemic cardiomyopathy) ([facility]),Presence of Watchman left atrial appendage closure device Take 1 tab in the morning and 1/2 tab in the evening. 135 Tablet 3 10/04/2021 Active Spiriva Respimat 1.25 MCG/ACT Inhalation Aerosol Solution (Tiotropium [place] Monohydrate) Inhale by mouth 2 Puffs daily [...] FOR NAUSEA 60 Tablet 2 05/03/2022 Active HYDROcodone-Acetamin ophen 5-325 MG Oral TabletIndications:Ge neralized osteoarthritis Take by mouth 1 Tablet every 6 hours as needed for Pain, Mild. 120 Tablet 0 05/20/2022 Active Sertraline HCl 25 MG Oral Tablet [...] before bedtime. 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 No 06/06/2022 Are you blind or do you have serious difficulty seeing, even when wearing glasses? No 06/06/2022 Do you have serious difficul ty walking or climbing stairs? (5 years old or older) No 06/07/2022 Do you have difficulty dress ing or bathing? (5 years old or older) No 06/06/2022 Because of a physical, menta l, or emotional condition, do you have difficulty doing errands alone such as visiting a doctor s office or shopping? (15 years old or older) Yes 06/06/20 22 Cognitive Status Response Date of Assessm ent Because of a physical, menta l, or emotional condition, do you have serious difficulty concentrating, remembering, or making decisions? (5 years old or older No 06/06/2022 documented as of this encounter Miscellaneous Notes * Telephone Encounter - Teresita Raymundo LPN - 08/07/2022 3:58 PM EDT Had appts with hematology * Telephone Encounter - Pascale Burns LPN - 07/08/2022 3:44 PM EDT Called and LM for her to return call ----- Message from Marcela Pinto MD sent at 06/30/2022 2:07 PM EDT ----- Last hb was slightly lower. Make sure she continue ferrous sulfate one every other day. Repeat cbcdin 2 week sfrom now. Order is in. documented in this encounter Plan of Treatment Upcoming Encounters Date Type Specialty Care Team Description 09/12/2022 Office Visit General Surgery [facility] [address] [facility] [id number] 10/08/2022 Office Visit Orthopedics Eliezer Gifford, DO [address] [facility] [place] [address] 10/10/2022 Office Visit Internal Medicine Marcela Pinto MD 200 [place] [address] 01/03/2023 Office Visit Cardiology Hammad Lopez, DO [address] [place] [address] Health Maintenance Due Date Last Done Comments [...] COPD 07/29/2023 07/29/2022 CKD PHOS USE SMARTSET 98586 08/05/202307/14, 02/19/2022, 03/09/2021, Additional history exists CKD HGB USE SMARTSET 01644 08/06/202308/06, 08/05/2022, 08/05/2022, Additional history exists DXA [...] Infection Onset Date Last Indicated Resolved Time Respiratory Rule-Out 07/25/2022 07/25/2022 022 1:56 PM EDT documented as of this encounter Advance Directives Documents on File Type Date Recorded 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
--- OUTSIDE RECORDS SUMMARY | 2023-06-18 02:38 | External Medical Summary | Summary of Care ---
Author Name Unknown Organization [place] [address] Care Team Providers Care Welding Inspector Name Role Phone Marcela Pinto MD Primary Care Provider + Reason for Referral * Medication Prior Authorization - Pending Review Specialty Diagnoses / Procedures Referred By Contac t Referred To Contact Diagnoses Generalized osteoarthritis Marcela Pinto MD [address] [place] [address] [place] [address] Referral ID Status Reason Start Date Expiration Date V isits Requested Visits Authorized [id number] Pending Review [phone] Reason for Visit * Reason Onset Date Comments Medication Refill 08/08/2022 Encounter Details Date Type Department Care Team Description 08/08/2022 Refill General Internal Medicine [facility] [place] [address] [place] [address] Marcela Pinto MD 200 [facility] [place] [address] GENERAL OSTEOARTHROSIS Allergies Active Allergy Reactions Severity Noted Date Comments Valsartan 07/10/2010 Enalapril 05/21/2006 Escitalopram Oxalate Nausea/vomiting 10/11/2009 Nauseated Iodinated Diagnostic Agents Nausea/vomiting 05/2010 IV Contrast Iodine Hives 12/18/2009 IV Contrast Metoprolol Tartrate 11/18/2006 Made pulse low [place] Oil-Black Currant-Vit E 07/10/2010 Verapamil 03/21/2004 Bupropion Hcl 10/30/2009 Makes pt sick in the stomach documented as of this encounter (statuses as of 08/08/2022) Medications Medication Sig Dispensed Refills Start Date [...] EVERY DAY 90 Tablet 3 1 Active Metoprolol Succinate ER 25 MG Oral Tablet Extended Release 24 Hour (toPROL XL)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 135 Tablet 3 1 Active Spiriva Respimat 1.25 MCG/ACT Inhalation Aerosol Solution (Tiotropium [place] Monohydrate) Inhale by mouth 2 Puffs daily . 0 Active Spironolactone 25 MG Oral Tablet (Aldactone) Take by mouth 0.5 Tablets once a day on Friday, Friday, and Friday only . 45 Tablet 3 2 Active Atorvastatin Calcium 40 MG Oral Tablet (Lipitor) Take by mouth 1 Tablet in the morning. 100 Tablet 3 2 Active Ipratropium-Albuter ol 20-100 MCG/ACT Inhalation [...] Delayed Release (PriLOSEC)Indicatio ns:Ischemic colitis ([facility]) TAKE 1 CAPSULE BY MOUTH TWICE [...] for 24 days. 24 g 0 2 08/22/20 22 Active HYDROcodone-Acetami nophen 5-325 MG Oral TabletIndications:G eneralized osteoarthritis Take by mouth 1 Tablet every 6 hours as needed for Pain, Mild. 120 Tablet 0 2 Active HYDROcodone-Acetami nophen 5-325 MG Oral TabletIndications:G eneralized osteoarthritis Take by mouth 1 Tablet every 6 hours as needed for Pain, Mild. 120 Tablet 0 2 08/08/20 22 Discontinu ed(Refill) documented as of this encounter (statuses as of 08/08/2022) Active Problems Problem Noted Date Diverticulitis of [...] as of this encounter (statuses as of 08/08/2022) Resolved Problems Problem Noted Date Resolved Date [...] Hypoxemia 10/08/2011 10/30/2015 Genetic Sleep Disorder Research Other*[id number] 07/25/2011 05/15/2016 COPD, moderate 07/19/2011 07/28/2019 Overview: [...] as of this encounter (statuses as of 08/08/2022) Immunizations Name Administration Dates Next Due COVID-19 mRNA, LNP-s, No Pre serve, 2-Dose Series (hike) 08/21/2021,12/22/2020,2020 COVID-19, LNP-s, No Preserve , Tyler-sucrose, [...] Telephone Encounter - Marcela Pinto MD - 08/08/2022 2:06 PM EDT Signed Prescriptions: Disp Refills HYDROcodone-Acetaminophen 5-325 MG Oral Ta*120 Ta*0 Sig: Take by mouth 1 Tablet every 6 hours as needed for Pain, Mild. Authorizing Provider: MARCELA PINTO * Telephone Encounter - Nicole SaeedNICOL - 08/08/2022 2:03 PM EDT Pending Prescriptions: Disp Refills HYDROcodone-Acetaminophen 5-325 MG Oral T*120 Ta*0 Sig: Take by mouth 1 Tablet every 6 hours as needed for Pain, Mild. Last Visit: 06/27/2022 (in office), 08/08/2020 (telemedicine) Next Visit: 08/15/2022 Last date the medication was ordered: 05/20/22 Patient Active Problem List Diagnosis Code Asthma [...] J45.30 Diverticulitis of intestine with abscess K57.80 Labs: Lab Results Component Value Date/Time CREATININE [...] [facility] 07/09/2019 01:57 PM CREATININE-OUTSIDE LAB 1.15 (A) 06/21/2022 12:00 AM Lab Results Component Value Date/Time POTASSIUM - [facility] 4.3 08/06/2022 05:50 AM POTASSIUM - [facility] 4.0 05/27/2020 04:51 PM POTASSIUM-OUTSIDE LAB 4.0 06/21/2022 12:00 AM Lab Results Component Value Date/Time [...] Visit Internal Medicine Marcela Pinto MD [address] [facility] [place] [address] 09/11/2022 Office Visit General Surgery Dionte Snyder MD [address] [place] [address] 10/08/2022 Office Visit Orthopedics Eliezer Gifford, DO [address] [place] [address] 10/10/2022 Office Visit Internal Medicine Marcela Pinto MD 200 [facility] [place] [address] 01/03/2023 Office Visit Cardiology Hammad Lopez, DO [address] [place] [address] Health Maintenance Due Date Last Done Comments [...] COPD 07/29/2023 07/29/2022 CKD PHOS USE SMARTSET 83855 08/05/202307/14, 02/19/2022, 03/09/2021, Additional history exists CKD HGB USE SMARTSET 35661 08/06/202308/06, 08/05/2022, 08/05/2022, Additional history exists DXA [...] site documented in this encounter Advance Directives Documents on File Type Date Recorded Patient Roll Threader Operator Expl anation Advanced 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 Directives occurred with: Not Discussed Care Teams Welding Inspector Relationship Specialty Start Date End Date Marcela Pinto MD [address] [facility] [place] [address] PCP - General Internal Medicine 08/04/14 documented as of this encounter
--- OUTSIDE RECORDS SUMMARY | 2023-06-18 02:38 | External Medical Summary | Summary of Care ---
Author Name Unknown Organization [place] [address] Care Team Providers Care Sql Manager Name Role Phone Marcela Pinto MD Primary Care Provider + Encounter Details Date Type Department Care Team Description 08/08/2022 Result Scan Unspecified Department <No scans attached> Allergies Active Allergy Reactions Severity Noted Date Comments Valsartan 07/10/2010 Enalapril 05/21/2006 Escitalopram Oxalate Nausea/vomiting 10/11/2009 Nauseated Iodinated Diagnostic Agents Nausea/vomiting 05/2010 IV Contrast Iodine Hives 12/18/2009 IV Contrast Metoprolol Tartrate 11/18/2006 Made pulse low [place] Oil-Black Currant-Vit E 07/10/2010 Verapamil 03/21/2004 Bupropion [...] Respimat 1.25 MCG/ACT Inhalation Aerosol Solution (Tiotropium [place] Monohydrate) Inhale by mouth 2 Puffs daily [...] Hypoxemia 10/08/2011 10/30/2015 Genetic Sleep Disorder Research Other*[id number] 07/25/2011 05/15/2016 COPD, moderate 07/19/2011 07/28/2019 Overview: [...] mRNA, LNP-s, No Pre serve, 2-Dose Series (StrongView) 08/21/2021,12/22/2020,2020 COVID-19, LNP-s, No Preserve , Tyler-sucrose, [...] Visit Internal Medicine Marcela Pinto MD [address] [place] [address] 09/11/2022 Office Visit General Surgery Dionte Snyder MD [address] [place] [address] 10/08/2022 Office Visit Orthopedics Eliezer Gifford, DO [address] [facility] [address] 10/10/2022 Office Visit Internal Medicine Marcela Pinto MD 200 [facility] [place] [address] 01/03/2023 Office Visit Cardiology Hammad Lopez, DO [address] [facility] [address] Health Maintenance Due Date Last Done Comments [...] COPD 07/29/2023 07/29/2022 CKD PHOS USE SMARTSET 26257 08/05/202307/14, 02/19/2022, 03/09/2021, Additional history exists CKD HGB USE SMARTSET 06061 08/06/202308/06, 08/05/2022, 08/05/2022, Additional history exists DXA [...] Procedure Name Priority Date/Time Associated Diagnosis Comments RADIOLOGY SCANNED RESULT 08/08/2022 RADIOLOGY SCANNED RESULT 08/08/2022 RADIOLOGY SCANNED RESULT 08/08/2022 documented in this encounter Results * RADIOLOGY SCANNED RESULT (08/08/2022) Specimen Narrative * RADIOLOGY SCANNED RESULT (08/08/2022) Specimen Narrative * RADIOLOGY SCANNED RESULT (08/08/2022) Specimen Narrative documented in this encounter Advance Directives Documents on File Type Date Recorded Patient Web Design Specialist Expl anation Advanced 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 Directives occurred with: Not Discussed Care Teams Sql Manager Relationship Specialty Start Date End Date Marcela Pinto MD 200 [facility] [place] [address] PCP - General Internal Medicine 08/04/14 documented as of this encounter
--- OUTSIDE RECORDS SUMMARY | 2023-06-18 02:38 | External Medical Summary | Summary of Care ---
Author Name Unknown Organization [place] [address] Care Team Providers Care Fisher Hoop Net Name Role Phone Alex Pinto MD Primary Care Provider + Reason for Visit * Reason Comments eRx-Medication Refill Encounter Details Date Type Department Care Team Description 08/09/2022 Refill General Internal Medicine [facility] 200 [place] [address] Alex Pinto MD [address] [place] [address] Allergies Active Allergy Reactions Severity Noted Date Comments Valsartan 07/10/2010 Enalapril 05/21/2006 Escitalopram Oxalate Nausea/vomiting 10/11/2009 Nauseated Iodinated Diagnostic Agents Nausea/vomiting 05/2010 IV Contrast Iodine Hives 12/18/2009 IV Contrast Metoprolol Tartrate 11/18/2006 Made pulse low [place] Oil-Black Currant-Vit E 07/10/2010 Verapamil 03/21/2004 Bupropion [...] Respimat 1.25 MCG/ACT Inhalation Aerosol Solution (Tiotropium [place] Monohydrate) Inhale by mouth 2 Puffs daily [...] THE EVENING. 135 Tablet 3 2 Active Glimepiride 2 MG Oral Tablet (Amaryl) TAKE 1 TABLET BY MOUTH EVERY DAY WITH BREAKFAST 90 Tablet 1 2 022 Discontinued documented as of this encounter [...] Hypoxemia 10/08/2011 10/30/2015 Genetic Sleep Disorder Research Other*[id number] 07/25/2011 05/15/2016 COPD, moderate 07/19/2011 07/28/2019 Overview: [...] encounter Miscellaneous Notes * Telephone Encounter - Melvi Juan RPh - 08/09/2022 5:06 PM EDT Signed Prescriptions: Disp Refills Glimepiride 2 MG Oral Tablet (Amaryl) 90 Tab*1 Sig: TAKE 1 TABLET BY MOUTH EVERY DAY WITH BREAKFASTAuthorizing Provider: ALEX PINTO User: MELVI JUAN documented in this encounter Plan of Treatment Upcoming Encounters Date Type Specialty Care Team Description 08/15/2022 Office Visit Internal Medicine Alex Pinot MD [address] [facility] [place] [address] 09/11/2022 Office Visit General Surgery Dionte Snyder MD [address] [facility] [place] [address] 10/08/2022 Office Visit Orthopedics Eliezer Gifford, DO [address] [place] [address] 10/10/2022 Office Visit Internal Medicine Alex Pinto MD 200 [facility] [place] [address] 01/03/2023 Office Visit Cardiology Hammad Lopez, DO [address] [place] [address] Health Maintenance Due Date Last Done Comments [...] COPD 07/29/2023 07/29/2022 CKD PHOS USE SMARTSET 65875 08/05/202307/14, 02/19/2022, 03/09/2021, Additional history exists CKD HGB USE SMARTSET 82755 08/06/202308/06, 08/05/2022, 08/05/2022, Additional history exists DXA [...] Documents on File Type Date Recorded 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
--- OUTSIDE RECORDS SUMMARY | 2023-06-18 02:39 | External Medical Summary ---
Author Name Unknown Address Unknown Organization K09[facility] [place] [address] Laboratory Report Ordering Provider Test Date Status AYANAARCHANA 08/06/2022 05:50:00 Final Observation Date Value Abnormality Reference (Units ) Status BUN 08/06/2022 05:50:00 10 6-20 (mg/dL) Final Creatinine 08/06/2022 05:50:00 0.8 0.5-1.0 (mg/dL) Final Glomerular filtration rate/1.73 sq M.predicted [Volume Rate/Area] in Serum, Plasma or Blood by Creatinine-based formula (CKD-EPI) 08/06/2022 05:50:00 76 >=60 (mL/min) Final Performing Location [facility] [place] [address]
--- OUTSIDE RECORDS SUMMARY | 2023-06-18 02:39 | External Medical Summary ---
Author Name Unknown Address Unknown Organization : Laboratory Report Ordering Provider Test Date Status ZAKI GILLESPIE 07/28/2022 16:43:02 Final Observation Date Value Abnormality Reference (Units ) Status Glucose Point of Care 07/28/2022 16:43:02 109 70-120 (mg/dL) Final Performing Location
--- OUTSIDE RECORDS SUMMARY | 2023-06-18 02:39 | External Medical Summary ---
Author Name Unknown Address Unknown Organization K09:[facility] [place] [address] Laboratory Report Ordering Provider Test Date Status RA VALDEZ 08/05/2022 12:50:00 Final Observation Date Value Abnormality Reference (Units ) Status BUN 08/05/2022 12:50:00 11 6-20 (mg/dL) Final Creatinine 08/05/2022 12:50:00 0.8 0.5-1.0 (mg/dL) Final Glomerular filtration rate/1.73 sq M.predicted [Volume Rate/Area] in Serum, Plasma or Blood by Creatinine-based formula (CKD-EPI) 08/05/2022 12:50:00 72 >=60 (mL/min) Final Performing Location [facility] [place] [address]
--- OUTSIDE RECORDS SUMMARY | 2023-06-18 02:39 | External Medical Summary ---
Author Name Unknown Address Unknown Organization K09:[facility] [place] [address] Laboratory Report Ordering Provider Test Date Status ARCHANA PIÑA 08/06/2022 05:50:00 Final Observation Date Value Abnormality Reference (Units ) Status WBC, Total 08/06/2022 05:50:00 12.32 Above high normal 4 .00-10.80 (K/uL) Final RBC 08/06/2022 05:50:00 3.47 3.85-5.15 (M/uL) Final Hemoglobin 08/06/2022 05:50:00 9.7 Below low normal 12 .0-15.3 (g/dL) Final HCT 08/06/2022 05:50:00 32.0 Below low normal 36. 0-45.2 (%) Final MCV 08/06/2022 05:50:00 92.2 81.5-97.5 (fL) Final MCH 08/06/2022 05:50:00 28.0 27.0-34.0 (pg) Final MCHC 08/06/2022 05:50:00 30.3 32.0-36.0 (g/dL) Final RDW 08/06/2022 05:50:00 16.7 11.5-15.5 (%) Final Platelets 08/06/2022 05:50:00 387 140-400 (K /uL) Final MPV 08/06/2022 05:50:00 9.7 6.6-11.1 ( fL) Final Performing Location [facility] [place] [address]
--- OUTSIDE RECORDS SUMMARY | 2023-06-18 02:39 | External Medical Summary ---
Author Name Unknown Address Unknown Organization K09:[facility] [place] [address] Laboratory Report Ordering Provider Test Date Status ARCHANA PIÑA 07/30/2022 05:35:00 Final Observation Date Value Abnormality Reference (Units ) Status BUN 07/30/2022 05:35:00 7 6-20 (mg/dL) Final Creatinine 07/30/2022 05:35:00 0.7 0.5-1.0 (mg/dL) Final Glomerular filtration rate/1.73 sq M.predicted [Volume Rate/Area] in Serum, Plasma or Blood by Creatinine-based formula (CKD-EPI) 07/30/2022 05:35:00 84 >=60 (mL/min) Final Performing Location [facility] [place] [address]
--- OUTSIDE RECORDS SUMMARY | 2023-06-18 02:39 | External Medical Summary ---
Author Name Unknown Address Unknown Organization : Laboratory Report Ordering Provider Test Date Status ZAKI GILLESPIE 07/28/2022 11:20:40 Final Observation Date Value Abnormality Reference (Units ) Status Glucose Point of Care 07/28/2022 11:20:40 120 70-120 (mg/dL) Final Performing Location
--- OUTSIDE RECORDS SUMMARY | 2023-06-18 02:39 | External Medical Summary ---
Author Name Unknown Address Unknown Organization K1F:[facility] - [address] [place] [address] Laboratory Report Ordering Provider Test Date Status ZAKI GILLESPIE 07/29/2022 05:12:00 Final Observation Date Value Abnormality Reference (Units ) Status BUN 07/29/2022 05:12:00 7 6-20 (mg/dL) Final Creatinine 07/29/2022 05:12:00 0.7 0.5-1.0 (mg/dL) Final Glomerular filtration rate/1.73 sq M.predicted [Volume Rate/Area] in Serum, Plasma or Blood by Creatinine-based formula (CKD-EPI) 07/29/2022 05:12:00 84 >=60 (mL/min) Final Performing Location [facility] - [address] [place] [address]
--- OUTSIDE RECORDS SUMMARY | 2023-06-18 02:39 | External Medical Summary | Summary of Care ---
Author Name Unknown Organization [place] [address] Care Team Providers Care Certified Medical Assistant Name Role Phone Marcela Pinto MD Primary Care Provider + Encounter Details Date Type Department Care Team Description 08/01/2022 Telephone Infectious Disease, [place] [address] [place] [address] Chavez Jarrell MD [address] [place] [address] Allergies Active Allergy Reactions Severity Noted Date Comments Valsartan 07/10/2010 Enalapril 05/21/2006 Escitalopram Oxalate Nausea/vomiting 10/11/2009 Nauseated Iodinated Diagnostic Agents Nausea/vomiting 05/2010 IV Contrast Iodine Hives 12/18/2009 IV Contrast Metoprolol Tartrate 11/18/2006 Made pulse low [place] Oil-Black Currant-Vit E 07/10/2010 Verapamil 03/21/2004 Bupropion Hcl 10/30/2009 Makes pt sick in the stomach documented as of this encounter (statuses as of 08/01/2022) Medications Medication Sig Dispensed Refills Start Date [...] Oral Tablet Extended Release 24 Hour (toPROL XL)Indications:Hand Pleater 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 07/25/2011 05/15/2016 COPD, moderate 07/19/2011 07/28/2019 Overview: [...] as of this encounter (statuses as of 08/01/2022) Immunizations Name Administration Dates Next Due COVID-19 mRNA, LNP-s, No Pre serve, 2-Dose Series (Wi3) 08/21/2021,12/22/2020,2020 COVID-19, LNP-s, No Preserve , Tyler-sucrose, [...] 08/01/2022 8:12 AM EDT Pt discharged to [facility] [phone] FINAL IMPRESSION AND RECOMMENDATIONS: Syndrome Intraabdominal infection [...] Encounters Date Type Specialty Care Team Description 08/05/2022 Telemedicine Hematology Oncology Ida Cueva CRNP [address] [place] [address] 09/12/2022 Office Visit General Surgery Dionte Snyder MD [address] [place] [address] 10/08/2022 Office Visit Orthopedics Eliezer Gifford, DO [address] [place] [address] 10/10/2022 Office Visit Internal Medicine Marcela Pinto MD [address] [facility], [place] [address] 01/03/2023 Office Visit Cardiology Hammad Lopez, DO [address] [place] [address] Health Maintenance Due Date Last Done Comments [...] Additional history exists GFR - Renal Function 01/28/2023 07/30/2022, 07/29/2022, 07/28/2022, Additional history exists Alb / Creat Ratio 02/19/2023 02/19/2022, , 07/27/2018, Additional history exists CKD PHOS USE SMARTSET 78866 02/19/2023 05, 03/09/2021, 03/22/2019 DIABETES-EYE EXAM 03/08/2023 03/08/2022, , 08/07/2020, Additional history exists O2 ASSESSMENT COMPLETED IN PAST YEAR FOR COPD 07/29/2023 07/29/2022 CKD HGB USE SMARTSET 61399 07/30/202307/30, 07/29/2022, 07/28/2022, Additional history exists DXA Scan 08/08/2025 08/08/2020, [...] Documents on File Type Date Recorded Patient Physician Advisor Expl anation Advanced 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 Directives occurred with: Not Discussed Care Teams Certified Medical Assistant Relationship Specialty Start Date End Date Marcela Pinto MD [address] [place] [address] [phone] PCP - General Internal Medicine 08/04/14 documented as of this encounter
--- OUTSIDE RECORDS SUMMARY | 2023-06-18 02:39 | External Medical Summary ---
Author Name Unknown Address Unknown Organization [id number]:[facility] [place] [place] [address] Laboratory Report Ordering Provider Test Date Status ARCHANA PIÑA 07/30/2022 05:35:00 Final Observation Date Value Abnormality Reference (Units ) Status WBC, Total 07/30/2022 05:35:00 8.44 4.00-10.8 0 (K/uL) Final RBC 07/30/2022 05:35:00 3.31 3.85-5.15 (M/uL) Final Hemoglobin 07/30/2022 05:35:00 9.1 Below low normal 12 .0-15.3 (g/dL) Final HCT 07/30/2022 05:35:00 30.4 Below low normal 36. 0-45.2 (%) Final MCV 07/30/2022 05:35:00 91.8 81.5-97.5 (fL) Final MCH 07/30/2022 05:35:00 27.5 27.0-34.0 (pg) Final MCHC 07/30/2022 05:35:00 29.9 32.0-36.0 (g/dL) Final RDW 07/30/2022 05:35:00 16.9 11.5-15.5 (%) Final Platelets 07/30/2022 05:35:00 395 140-400 (K /uL) Final MPV 07/30/2022 05:35:00 9.4 6.6-11.1 ( fL) Final Performing Location [facility] [place] [place] [address]
--- OUTSIDE RECORDS SUMMARY | 2023-06-18 02:39 | External Medical Summary ---
Author Name Unknown Address Unknown Organization [id number]:[facility] [place] [address] Laboratory Report Ordering Provider Test Date Status RA VALDEZ 08/05/2022 12:50:00 Final Observation Date Value Abnormality Reference (Units ) Status WBC, Total 08/05/2022 12:50:00 13.52 Above high normal 4 .00-10.80 (K/uL) Final RBC 08/05/2022 12:50:00 3.31 3.85-5.15 (M/uL) Final Hemoglobin 08/05/2022 12:50:00 9.3 Below low normal 12 .0-15.3 (g/dL) Final HCT 08/05/2022 12:50:00 30.4 Below low normal 36. 0-45.2 (%) Final MCV 08/05/2022 12:50:00 91.8 81.5-97.5 (fL) Final MCH 08/05/2022 12:50:00 28.1 27.0-34.0 (pg) Final MCHC 08/05/2022 12:50:00 30.6 32.0-36.0 (g/dL) Final RDW 08/05/2022 12:50:00 16.7 11.5-15.5 (%) Final Platelets 08/05/2022 12:50:00 374 140-400 (K /uL) Final MPV 08/05/2022 12:50:00 9.8 6.6-11.1 ( fL) Final Performing Location [facility] [place] [address]
--- OUTSIDE RECORDS SUMMARY | 2023-06-18 02:39 | External Medical Summary ---
Author Name Unknown Address Unknown Organization : Laboratory Report Ordering Provider Test Date Status ZAKI GILLESPIE 07/29/2022 07:28:36 Final Observation Date Value Abnormality Reference (Units ) Status Glucose Point of Care 07/29/2022 07:28:36 119 70-120 (mg/dL) Final Performing Location
--- OUTSIDE RECORDS SUMMARY | 2023-06-18 02:39 | External Medical Summary ---
Author Name Unknown Address Unknown Organization [id number]:[facility] [place] [address] Laboratory Report Ordering Provider Test Date Status ZAKI GILLESPIE 07/29/2022 05:12:00 Final Observation Date Value Abnormality Reference (Units ) Status WBC, Total 07/29/2022 05:12:00 8.83 4.00-10.80 (K/uL) Final RBC 07/29/2022 05:12:00 3.26 3.85-5.15 (M/uL) Final Hemoglobin 07/29/2022 05:12:00 9.1 Below low normal 12.0-15.3 (g/dL) Final HCT 07/29/2022 05:12:00 29.4 Below low normal 36.0-45.2 (%) Final MCV 07/29/2022 05:12:00 90.2 81.5-97.5 (fL) Final MCH 07/29/2022 05:12:00 27.9 27.0-34.0 (pg) Final MCHC 07/29/2022 05:12:00 31.0 32.0-36.0 (g/dL) Final RDW 07/29/2022 05:12:00 16.7 11.5-15.5 (%) Final Platelets 07/29/2022 05:12:00 399 140-400 (K/uL) Final MPV 07/29/2022 05:12:00 9.0 6.6-11.1 (fL) Final Nucleated erythrocytes/100 leukocytes [Ratio] in Blood by Automated count 07/29/2022 05:12:00 0 <=0 (/100 WBCs) Final Performing Location [facility] - [address] [place] [address]
--- OUTSIDE RECORDS SUMMARY | 2023-06-18 02:39 | External Medical Summary ---
Author Name Unknown Address Unknown Organization : Laboratory Report Ordering Provider Test Date Status ZAKI GILLESPIE 07/29/2022 11:49:29 Final Observation Date Value Abnormality Reference (Units ) Status Glucose Point of Care 07/29/2022 11:49:29 115 70-120 (mg/dL) Final Performing Location
--- OUTSIDE RECORDS SUMMARY | 2023-06-18 02:39 | External Medical Summary ---
Author Name Unknown Address Unknown Organization : Laboratory Report Ordering Provider Test Date Status ZKAI GILLESPIE 07/28/2022 08:00:34 Final Observation Date Value Abnormality Reference (Units ) Status Glucose Point of Care 07/28/2022 08:00:34 98 70-120 (mg/dL) Final Performing Location
--- OUTSIDE RECORDS SUMMARY | 2023-06-18 02:39 | External Medical Summary ---
Author Name Unknown Address Unknown Organization K09:[facility] [place] [address] Laboratory Report Ordering Provider Test Date Status RA VALDEZ 08/05/2022 12:50:00 Final Observation Date Value Abnormality Reference (Units ) Status SYNC LEUKOCYTES IN BLOOD BY AUTOMATED COUNT 08/05/2022 12:50:00 13.52 Above high normal 4.00-10.80 (K/uL) Final Segs 08/05/2022 12:50:00 47.7 40.0-75.0 (%) Final Lymphs % 08/05/2022 12:50:00 37.0 18.0-42.0 (%) Final Monos 08/05/2022 12:50:00 10.7 1.0-11.0 (%) Final Eosinophils 08/05/2022 12:50:00 4.3 0.0-6.0 (%) Final Basos 08/05/2022 12:50:00 0.3 0.0-2.0 (%) Final Absolute Segs 08/05/2022 12:50:00 6.45 1.80-7.70 (K/uL) Final Lymphs, absolute 08/05/2022 12:50:00 5.00 Above high normal 1.00-4.80 (K/ul) Final Monos, Abs 08/05/2022 12:50:00 1.45 Above high normal 0.00-1.10 (K/uL) Final Eos, Abs 08/05/2022 12:50:00 0.58 0.00-0.70 (K/uL) Final Basos, Abs 08/05/2022 12:50:00 0.04 0.00-0.20 (K/uL) Final Performing Location [facility] [place] [address]
--- OUTSIDE RECORDS SUMMARY | 2023-06-18 02:39 | External Medical Summary | Summary of Care ---
Author Name Unknown Organization [place] [address] Care Team Providers Care Mattress Specialist Name Role Phone Marcela Pinto MD Primary Care Provider + Reason for Visit * Auth/Cert Specialty Diagnoses / Procedures Referred By Contac t Referred To Contact Diagnoses Abscess of sigmoid colon due to diverticulitis acute sigmoid diverticulitis with abscess Referral ID Status Reason Start Date Expiration Date Visits Re quested Visits Authorized [id number] Encounter Details Date Type Department Care Team Description 07/25/2022 - 07/29/2022 Hospital Encounter 5A [facility] 5th Floor [address] [place] [address] Wayne Kelley MD [address] [place] [address] Areli Dela Cruz MD [address] [place] [address] EKG Report Allergies Active Allergy Reactions Severity Noted Date Comments Valsartan 07/10/2010 Enalapril 05/21/2006 Escitalopram Oxalate Nausea/vomiting 10/11/2009 Nauseated Iodinated Diagnostic Agents Nausea/vomiting 05/2010 IV Contrast Iodine Hives 12/18/2009 IV Contrast Metoprolol Tartrate 11/18/2006 Made pulse low [place] Oil-Black Currant-Vit E 07/10/2010 Verapamil 03/21/2004 Bupropion Hcl 10/30/2009 Makes pt sick in the stomach documented as of this encounter (statuses as of 07/30/2022) Medications Medication Sig Dispensed Refills Start Date [...] by mouth daily. 0 02/06/20 21 Active Klor-Con M20 20 MEQ Oral Tablet Extended Release (Potassium Chloride Annalisa ER)Indications:HTN , goal below 140/90 TAKE 1 TABLET BY MOUTH EVERY DAY 90 Tablet 3 09/28/20 21 Active Metoprolol Succinate ER 25 MG Oral Tablet Extended Release 24 Hour (toPROL XL)Indications:Chr onic 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 ([facility]),NICM (nonischemic cardiomyopathy) ([facility]),Presence of Watchman left atrial appendage closure device Take 1 tab in the morning and 1/2 tab in the evening. 135 Tablet 3 10/04/20 21 Active Spiriva Respimat 1.25 MCG/ACT Inhalation Aerosol Solution (Tiotropium Northridge Monohydrate) Inhale by mouth 2 Puffs daily [...] DAY 12 g 1 02/01/20 22 Active Glimepiride 2 MG Oral Tablet (Amaryl) TAKE 1 TABLET BY MOUTH EVERY DAY WITH BREAKFAST 90 Tablet 1 02/08/20 22 Active Dicyclomine HCl 20 MG Oral [...] NAUSEA 60 Tablet 2 05/03/20 22 Active HYDROcodone-Acetam inophen 5-325 MG Oral TabletIndications: Generalized osteoarthritis Take by mouth 1 Tablet every 6 hours as needed for Pain, Mild. 120 Tablet 0 05/20/20 22 Active Sertraline HCl 25 MG Oral [...] Tablet before bedtime. 60 Tablet 6 06/25/20 Active Polyethylene Glycol 3350 17 GM Oral Packet (Miralax) Take by mouth 17 g 2 times a day as needed for Constipation. 0 Active methIMAzole 5 MG Oral Tablet (Tapazole) Take by mouth 5 mg in the morning. 0 Active ertapenem INJ IV (AMBULATORY) Administer intravenously 1 g in the morning for 24 days. 24 g 0 07/29/20 22 Active polyethylene glycol 3350 (MIRALAX) 255 gram powder Take 17 g by mouth 2 times a day. One cap full in juice, to effect 1 stool per day. . 2 Bottle 3 10/01/20 16 Discontinued(Nm dication List Clean Up) Lancets MISCIndications:Ty pe 2 diabetes mellitus with hemoglobin A1c goal of less than 7.0% ([facility]) Use as directed. USE TO TEST BLOOD SUGAR 3 TIMES A DAY FOR DIAGNOSIS CODE OF E11.9 300 Each 1 01/05/20 20 Discontinued CareSens N Voice System Device Use as directed. Tests three times daily/E11.9 0 Discontinued CareSens N Glucose Test In Vitro Strip (Glucose Blood) Test as directed. Tests three times daily 0 Discontinued Lisinopril 2.5 MG Oral Tablet (Prinivil)Indicati ons:Paroxysmal atrial fibrillation (HCC),Chronic systolic heart failure (HCC) Take by mouth 1 Tablet in the morning. 90 Tablet 3 11/12/19 22 Discontinued Ketoconazole 2 % External Cream APPLY TO GROIN AREA TWICE A DAY 60 g 11 12/27/19 22 Discontinued methIMAzole 10 MG Oral Tablet (Tapazole)Indicati ons:Hyperthyroidis m TAKE 1 TABLET BY MOUTH EVERY DAY 90 Tablet 1 01/11/20 22 Discontinued(Nm dication List Clean Up) OneTouch Verio In Vitro Strip (Glucose Blood) Checks blood sugar 3 times a day. E11.9 DX 100 Strip 5 03/18/20 22 022 Discontinued documented as of this encounter (statuses as of 07/30/2022) Active Problems Problem Noted Date Diverticulitis of [...] as of this encounter (statuses as of 07/30/2022) Resolved Problems Problem Noted Date Resolved Date [...] Hypoxemia 10/08/2011 10/30/2015 Genetic Sleep Disorder Research Other*[id number] 07/25/2011 05/15/2016 COPD, moderate 07/19/2011 07/28/2019 Overview: [...] as of this encounter (statuses as of 07/30/2022) Immunizations Name Administration Dates Next Due COVID-19 mRNA, LNP-s, No Pre serve, 2-Dose Series (Twist and Shout) 08/21/2021,12/22/2020,2020 COVID-19, LNP-s, No Preserve , Tyler-sucrose, [...] Sign Reading Time Taken Comments Blood Pressure 120/85 07/29/2022 7:26 AM EDT Pulse 107 07/29/2022 7:26 AM EDT Temperature 36.2 C (97.2 F) 07/29/2022 7:26 AM ED T Respiratory Rate 18 07/29/2022 7:26 AM EDT Oxygen Saturation 95% 07/29/2022 7:26 AM EDT Inhaled Oxygen Concentration - - Weight 99.9 kg (220 lb 2.1 oz) 07/25/2022 10:34 AM EDT Height 165.1 cm (5' 5") 07/25/2022 10:34 AM EDT Body Mass Index 36.63 07/25/2022 10:34 AM EDT documented in this encounter Functional Status [...] 07/25/2022 documented as of this encounter Discharge Summaries * Wayne Kelley MD - 07/29/2022 1:31 PM EDT Images from the original note were not included. DISCHARGE SUMMARY [address] [id number] Name: Savita Harrington Sex: female Age: [age] year old Admission Date: 07/25/2022 Discharge Date: 07/29/2022 RECOMMENDED TO DO FOR NEXT PROVIDER(S): Dr. Marcela Pinto MD (or Covering PCP), Ensure completion of IV antibiotic Ensure Infectious Disease follow-up in 2-4 weeks Routine chronic disease management REASON(S) FOR MEDICATION CHANGE(S): We added eratapenem DISPOSITION ON DISCHARGE: encompass DISCHARGE DIAGNOSES: Active Hospital Problems Diagnosis *Principal Diagnosis - Diverticulitis of intestine with abscess Pulmonary HTN ([facility]) Chronic systolic heart failure ([facility]) Chronic hypoxemic respiratory failure ([facility]) Paroxysmal atrial fibrillation ([facility]) Morbid obesity with BMI of 40.0-44.9, adult ([facility]) COPD, group B, 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 ([facility]) Type 2 diabetes mellitus with hemoglobin A1c goal of less than 7.5% ([facility]) Sleep apnea, obstructive Resolved Hospital Problems No resolved problems to display. ADMISSION HISTORY & PHYSICAL EXAM (focused): PRESENTING PROBLEM: Diverticulitis w/abscess HPI: Patient w/PMH of COPD, chronic respiratory failure (on 2 L NC during the day and 4 L NC at night), HFrEF, PAF (s/p watchman device so is no longer on anticoagulation), DM, recurrent diverticulitis, colovesicular fistula presents to ED today for diverticulitis w/abscess. Patient had hospitalization for diverticulitis in May (she was initially admitted to [facility] then she was transferred [place] [facility] She was deemed high risk for surgery and she was managed conservatively and discharged on PO antibiotics. She ended up being admitted again to [facility] on 07/17/2022 for LLQ pain [...] of the abscess. Patient was transferred to [facility] for IR procedure to drain the abscess. Patient states she still has LLQ and LUQ, sharp and stabbing in nature.She gets nauseated if she tries to eat anything but she hasn't vomited. She reports her stools are loose and dark in appearance. Of note, she required 1 unit PRBCs during her stay at [facility]. Subjective ROS: Constitutional: no unintentional weight loss, no weakness and no dizziness Eyes: no worsening of vision, no diplopia or eye pain Ears: no hearing loss or ear pain Oropharynx: No sore throat or difficulty swallowing Resp: No increased SOB, no cough, no sputum and no wheezing Cardiac: no chest pain, no edema and no palpitations GI: + abd pain,+nausea, + loose stool. No vomiting. No visible blood in stool. Musculoskeletal: no significant joint or muscle pain and no swelling : No dysuria, no hematuria Neuro: No headache, no one sided weakness, no numbness or tingling and no vertigo Psych: denies feeling depressed or anxious and no difficulty sleeping Heme: no fever, no chills, no sweats and no abnormal bleeding Skin: no rash, no itching and no sores HOSPITAL COURSE (focused): Patient admitted to a medical bed. Patient underwent IR placement of a pelvic drainage catheter without complications. We consulted Infectious Disease for final antibiotic regimen. Infectious Disease recommended ertapenem 1 g daily until August 22. Patient will need weekly CBC with diff and BMP while on IV antibiotics. Patient's nausea and abdominal pain improved and patient felt much better. Care management was consulted for discharge planning. Care management arranged for transfer to [facility]. Operations & Procedures: IR placement of drainage catheter, PICC line Complications: none applicable Significant Lab and Imaging Results: XR CHEST 1 VIEW Final Result PROCEDURE INFORMATION: Exam: XR Chest Exam date and time: 07/26/2022 4:51 PM Age: 81 years old Clinical indication: Other: Picc placement TECHNIQUE: Imaging protocol: Radiologic exam of the chest. Views: 1 view. COMPARISON: DX XR CHEST 2 VIEWS 08/23/2021 3:14 PM FINDINGS: Tubes, catheters and devices: A right-sided PICC line is in place with the distal tip terminating at the level of the atrial caval junction/proximal right atrium. Lungs: Mild left basilar atelectasis. No consolidation. Pleural spaces: Unremarkable. No pleural effusion. No pneumothorax. Heart/Mediastinum: The heart is mildly enlarged. Bones/joints: Unremarkable. IMPRESSION IMPRESSION: Right-sided PICC line terminates at the level of the atrial caval junction/proximal right atrium. THIS DOCUMENT HAS BEEN ELECTRONICALLY SIGNED BY JANETTE NIXON MD IR ASPIRATION ABSCESS/COLLECTION Final Result PROCEDURE: CT guided left pelvic fluid collection drainage catheter placement. INDICATION: 81-year-old female with diverticulitis and an enlarging left pelvic fluid collection concerning for abscess presents for drainage catheter insertion. ATTENDING (OPERATING PHYSICIAN): Jerry Hernandez DO SCRUBTIFFANY RESIDENT (OPERATING PHYSICIAN): None SUPPORTING PROVIDER (ROLL FORMER): None. CONSENT: After a detailed discussion of the procedure, risks, benefits and alternative treatment options, informed consent was obtained. TIME OUT: A time out procedure was performed. The patient's identification was verified. Informed consent with agreement of procedure, site and position was obtained. All necessary equipment was available prior to procedure. CONTRAST: No contrast was administered. COMPLICATIONS: None. ANESTHESIA: Local lidocaine. IV Versed. IV Fentanyl. SEDATION TIME: Start to end: 6612-2346. Qualified nurse sedation observer Yoon Saucedo RN, Liam Muñoz RN, and Tram Butler RN. MEDICATIONS: See MAR PROCEDURE DESCRIPTION: After survey CT images of the pelvis were performed, the collection in the left pelvis was studied. Then the access site was selected in the ventral abdominal wall and the site was prepped and draped in the usual sterile fashion. The skin and deep soft tissues were anesthetized and using image guidance, a 5 Fr one-step catheter-needle was inserted into the collection. Approximately 60 mL of cloudy, serous fluid was removed, placed in empty vials and sent to microbiology. An 035 wire was inserted into the collection via the access and after tract dilation, a 14 Fr locking loop catheter was inserted over the wire. The catheter was secured to the patient and attached to a gravity drainage bag. I personally performed the procedure. FINDINGS: Survey CT images demonstrate a left pelvic fluid collection, similar to recent imaging. Further imaging shows that the needle is in the collection. After aspiration, there is no significant residual collection. Final imaging demonstrates the catheter looped in the collection. No complication noted on post placement imaging. IMPRESSION IMPRESSION: Successful CT-guided percutaneous drainage catheter placement in the left pelvic fluid collection. Given fluid aspirated was cloudy and serous, fluid collection may be an ovarian cyst rather than a diverticular abscess. PLAN: Follow-up of cytology and culture results and appropriate management per the hospitalist service. The gravity drainage bag should always be attached to the patient's drainage catheter. Please record drain output daily. When output is less than 10 mL daily for 2 consecutive days, drainage catheter may be removed. This collection will not require follow up imaging for the drain removal appointment. Lab results within last 7 days (see chart for full results) Units 07/29/22 0507/28/226 07/27/22 0810 Sodium mmol/L 142 139 138 Potassium mmol/L 4.1 3.5 4.0 Chloride mmol/L 103 100 101 CO2 mmol/L 34* 33* 30 BUN mg/dL 7 9 9 Creatinine mg/dL 0.7 0.9 0.9 Lab results within last 7 days (see chart for full results) Units 07/29/22 0507/28/226 07/27/22 0810 Sodium mmol/L 142 139 138 Potassium mmol/L 4.1 3.5 4.0 Chloride mmol/L 103 100 101 CO2 mmol/L 34* 33* 30 BUN mg/dL 7 9 9 Creatinine mg/dL 0.7 0.9 0.9 Test Results Still Pending at Discharge: final cx's of drainage fluid MEDICATIONS: MEDICATION UPDATES AT DISCHARGE START taking these medications INSTRUCTIONS ertapenem INJ (AMBULATORY) Commonly known as: INVanz Administer intravenously 1 g in the morning for 24 days. CONTINUE taking these medications INSTRUCTIONS * Albuterol Sulfate (2.5 MG/3ML) 0.083% nebulizer solution Commonly known as: Proventil USE ONE NEBULIZER TREATMENT TWICE A DAY DIRECTED FOR WORSENING ASTHMA. J45.909, J44.9 * Ventolin HFA 108 (90 Base) MCG/ACT Aers Inhale 2 Puffs by mouth 2 times a day. aspirin enteric coated 81 MG Tbec Take 81 mg by mouth daily. atorvaSTATin 40 MG Tablet Commonly known as: Lipitor Take by mouth 1 Tablet in the morning. Azopt 1 % ophthalmic suspension Generic drug: brinZOLamide INSTILL 1 DROP BY OPHTHALMIC ROUTE 2 TIMES EVERY DAY INTO BOTH EYES [facility] Senna Tablet Generic drug: senna TAKE 2 TABLETS BY MOUTH EVERY EVENING FOR 10 DAYS NEEDED FOR CONSTIPATION dicyclomine 20 MG Tablet Commonly known as: Bentyl TAKE 1 TABLET BY MOUTH EVERY DAY Docusate Sodium 100 MG Capsule Commonly known as: Colace Take 1 Cap by mouth daily. Ferrous Sulfate 325 (65 FE) MG Tablet Commonly known as: Feosol Take by mouth 1 Tablet in the morning. Furosemide 40 MG Tablet Commonly known as: Lasix Take by mouth 1 Tablet in the morning AND 1 Tablet before bedtime. Glimepiride 2 MG Tablet Commonly known as: Amaryl TAKE 1 TABLET BY MOUTH EVERY DAY WITH BREAKFAST HYDROcodone-acetaminophen 5-325 mg per tab 5-325 MG per tablet Take by mouth 1 Tablet every 6 hours as needed for Pain, Mild. Ipratropium-Albuterol 20-100 MCG/ACT Inhaler Commonly known as: Combivent Respimat TAKE 1 PUFF BY MOUTH 4 TIMES A DAY Klor-Con M20 20 MEQ Tbcr Generic drug: Potassium Chloride Annalisa ER TAKE 1 TABLET BY MOUTH EVERY DAY Lumigan 0.01 % ophthalmic solution Generic drug: Bimatoprost INSTILL 1 DROP BY TOPICAL ROUTE EVERY BEDTIME methIMAzole 5 MG Tablet Commonly known as: Tapazole Take by mouth 5 mg in the morning. metoprolol succinate XL 25 MG Tb24 Commonly known as: toPROL XL Take 1 tab in the morning and 1/2 tab in the evening. omeprazole 20 MG Cpdr Commonly known as: PriLOSEC TAKE 1 CAPSULE BY MOUTH TWICE A DAY ondansetron ODT 8 MG Tbdp Commonly known as: Zofran DISSOLVE 1 TABLET ON TONGUE EVERY 8 HOURS NEEDED FOR NAUSEA One Daily Multivitamin Women Tabs one pill each day oxygen Gas Use 4 L/min(Oxygen) as directed. Uses 2 LPM during the day and 4 LPM at night Polyethylene Glycol 3350 packet Commonly known as: Miralax Take by mouth 17 g 2 times a day as needed for Constipation. Probiotic Daily Capsule Take 1 Cap by mouth daily. promethazine 25 MG Tablet Commonly known as: Phenergan TAKE 1 TABLET BY MOUTH EVERY 6 HOURS NEEDED FOR NAUSEA sertraline 25 MG Tablet Commonly known as: Zoloft TAKE 1 TABLET BY MOUTH EVERY DAY IN THE MORNING Spiriva Respimat 1.25 MCG/ACT Aers Generic drug: Tiotropium [place]ridge Monohydrate Inhale by mouth 2 Puffs daily . Spironolactone 25 MG Tablet Commonly known as: Aldactone Take by mouth 0.5 Tablets once a day on Friday, Friday, and Friday only . Vitamin D 1000 units Tablet one tablet daily Zafirlukast 20 MG Tablet Commonly known as: Accolate TAKE 1 TABLET BY MOUTH EVERY DAY * This list has 2 medication(s) that are the same as other medications prescribed for you. Read thedirections carefully, and ask your doctor or other care provider to review them with you. STOP taking these medications CareSens N Glucose Test Strp Generic drug: Glucose Blood CareSens N Voice System Harriet Ketoconazole 2 % cream Lancets Misc Lisinopril 2.5 MG Tablet Commonly known as: Prinivil OneTouch Verio Strp Generic drug: Glucose Blood SCHEDULED FOLLOW-UP: Future Appointments Appt Date/Time Provider Department 08/05/2022 5:00 PM NIECY Beverly Hematology/Oncology [facility] 09/12/2022 8:00 AM [facility]/08/[facility]22 1:00 PM Eliezer Gifford DO Orthopaedics [facility] 10/10/2022 3:00 PM Marcela Pinto MD General Internal Medicine [facility] 01/03/2023 3:30 PM Hammad Lopez DO Cardiology, [facility] OTHER INFORMATION: Vital Signs (last recorded): Most Recent Systolic BP: 120 mmHg (07/29/22725) Most Recent Diastolic BP: 85 mmHg (07/29/22725) Pulse: 107 (07/29/22725) Resp: 18 (07/29/22725) Most Recent Temperature: 36.22 C (07/29/22725) Weight: 99.9 kg (220 lb 2.1 oz) (07/25/22 1034) SpO2: 95 % (07/29/22725) O2 flow rate: 2 L/MIN (07/29/22725) Allergies: Diovan [valsartan], Enalapril, Escitalopram oxalate, Iodinated diagnostic agents, Iodine, Metoprolol tartrate, [place] oil-black currant-vit e, Verapamil, and Wellbutrin [bupropion hcl] Activity: as tolerated Diet: Orders Placed This Encounter Procedures Adult Complex Diet : Consistent Carbohydrate - 4 Choices (60 grams) --- Heart Healthy --- FiberRestricted Code status (this admission): Full Code Discussion of adv directives occurred with - adult: Patient Condition on Discharge: stable Indwelling Devices: PICC line Zhu Fall Scale: Fall Score: 60 (07/29/22 0912) Reference range: 0-24=minimal fall risk; 25-50=moderate fall risk; greater than 50=high fall risk. Isolation status: None Cognition: normal CONSULTS ORDERED: INTERVENTIONAL RADIOLOGY CONSULT IP CARE MANAGEMENT CONSULT IP INFECTIOUS DISEASE CONSULT IP IV THERAPY CONSULT IP REFERRING PHYSICIAN: Ref: OTILIA MALAVE[[id number]] [address] [place] [address] (office) [phone] (fax) PRIMARY CARE PROVIDER: PCP: Marcela Pinto MD [address] [place] [address] / [facility] [address] (office) [phone] (fax) Note: To contact a physician responsible for this patients hospital care, please call [address] [phone]. I spent a total of 38 minutes providing discharge day management for this patient. The management included final examination of the patient, discussion of the hospital stay with the patient and/or caregivers, and preparation of discharge records, prescriptions, and referral forms that relate to thepatient's hospital stay. This time is reflective of my part in the discharge day management as documented in the summary and notes, and doesn't include resident or other providers time providing the above to the patient. documented in this encounter Discharge Instructions * Discharge Instr - AVS* Jerry Hernandez DO - 07/26/2022 2:10 PM EDT Interventional Radiology Procedure Date: 07/25/2022 Provider: Dr. Jerry Hernandez If you are experiencing any problems related to your procedure, please contact Interventional Radiology at [phone] during normal business hours: Friday - Friday, 8:00 am - 4:00 pm. If a problem occurs outside of normal business hours, please call the hospital pbx operator at [phone] and ask for the Interventional Radiologist subscription agent. Contact scheduling for Interventional Radiology at [phone] during normal business hours: Friday - Friday, 8:00 am - 4:00 pm. The information below provides you with the instructions and the list of medications you need to betaking following discharge from the hospital. If you have any questions, please ask before leaving.Please carry this letter with you when you see your doctor in the clinic. If you have questions, you can reach us at the numbers above. SPECIAL INSTRUCTIONS Drainage Catheter Insertion A catheter was placed in your body under imaging guidance. Home Care When showering, please cover your incisions and/or exit site of catheter from skin with plastic wrap to avoid them getting wet. Do not go swimming, take baths, or soak in a hot tub. Check site daily to make sure the catheter is secure. If your physician placed a securement device and it starts to come off, please replace. We can then call a prescription into the [facility] pharmacy for an additional securement device. If your physician placed sutures, and they are no longer securing the catheter to your skin, please call our department. Be sure to empty drainage bag and record the output. Follow Up When less than 10 mL drainage is collected in a 24 hour time period, please call Interventional Radiology. If there continues to be drainage greater than 10 mL each day for 7 days, contact Interventional Radiology about drainage catheter removal. When to Call Interventional Radiology Call Interventional Radiology right away if you have any of the following: Fever above 100 degrees Fahrenheit Increased bleeding, redness, swelling, warmth, or discharge at the incision site. Constant or increasing pain, numbness, coldness, or tingling around the incision area. Leaking noted around the catheter. Vomiting or nausea that does not go away. If at any time you feel you have a medical emergency, call 911 for emergency assistance. Symptoms can include: Chest Pain Sudden, severe shortness of breath Rapid heart rate Sudden onset of weakness documented in this encounter Progress Notes * Wayne Kelley MD - 07/28/2022 2:47 PM EDT Images from the original note were not included. [facility] [id number] INTERVAL HISTORY: 81 josé antonio/PMH of COPD, chronic respiratory failure (on 2 L NC during the day and 4L NC at night), HFrEF, PAF (s/p watchman device so is no longer on anticoagulation), DM, recurrent diverticulitis, colovesicular fistulatransfer to [facility] from [facility] fordiverticulitis w/abscess Pt admitted to [facility] on 07/17/22. S/p 1 unit prbcs at [facility]. [facility] unable to place picc as well for IV abx. S/p IR drain placement on07/25/2022 S/p Picc Some nausea and abd pain, overall feels better than prior to procedure ROS: Review of Systems All other systems reviewed and are negative. Objective Physical Exam Most Recent Vital Signs: BP: 93 mmHg/57 mmHg (07/28/22722) Pulse: 86 (07/28/22722) Temp: 35.89 C (07/28/22722) Resp: 18 (07/28/22722) SpO2: 98 % (07/28/22722) Physical Exam Vitals and nursing note reviewed. Exam conducted with a church supervisor present. Constitutional: General: She is not in acute distress. Appearance: Normal appearance. Cardiovascular: Rate and Rhythm: Normal rate and regular rhythm. Pulses: Normal pulses. Heart sounds: Normal heart sounds. No murmur heard. No friction rub. No gallop. Pulmonary: Effort: Pulmonary effort is normal. No respiratory distress. Breath sounds: Normal breath sounds. No wheezing, rhonchi or rales. Abdominal: General: Abdomen is flat. Bowel sounds are normal. Palpations: Abdomen is soft. Comments: +IR drain Musculoskeletal: Right lower leg: No edema. Left lower leg: No edema. Skin: General: Skin is warm and dry. Capillary Refill: Capillary refill takes less than 2 seconds. Neurological: General: No focal deficit present. Mental Status: She is alert and oriented to person, place, and time. Drain Left;Lower;Quadrant Abdomen (Active) Number of days: 3 Power PICC Single Lumen Right;Upper Arm (Active) Number of days: 2 STUDIES: Labs and other studies reviewed with pertinent findings noted below: Lab results within last 7 days (see chart for full results) Units 07/28/22 0456 07/27/22 0810 07/26/22 0451 HGB g/dL 8.6* 8.4* 8.4* HCT % 28.3* 27.7* 27.9* WBC K/uL 9.82 10.89* 12.77* PLT K/uL 398 413* 418* Lab results within last 7 days (see chart for full results) Units 07/28/22 0456 07/27/22 0810 07/26/22 0451 Sodium mmol/L 139 138 139 Potassium mmol/L 3.5 4.0 4.7 Chloride mmol/L 100 101 103 CO2 mmol/L 33* 30 32 BUN mg/dL 9 9 9 Creatinine mg/dL 0.9 0.9 0.9 Assessment and Plan IMPRESSION : Principal Problem: Diverticulitis of intestine with abscess Active Problems: Sleep apnea, obstructive Type 2 diabetes mellitus with hemoglobin A1c goal of less than 7.5% (HCC) COPD, group B, 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 ([facility]) Morbid obesity with BMI of 40.0-44.9, adult (HCC) Paroxysmal atrial fibrillation (HCC) Chronic systolic heart failure (HCC) Pulmonary HTN (HCC) Chronic hypoxemic respiratory failure (HCC) Resolved Problems: * No resolved hospital problems. * DIFFERENTIAL AND PLAN: 81 josé antonio/PMH of COPD, chronic respiratory failure (on 2 L NC during the day and 4 L NC at night), HFrEF, PAF (s/p watchman device so is no longer on anticoagulation), DM, recurrent diverticulitis, colovesicular fistulatransfer to [facility] fordiverticulitis w/abscess drain management per IR. ?abscess vs ovarian cyst. IR help appreciated Inf dz help for IV abx appreciated. Await cx results Cont ertapenem per inf dz recs. End date 08/22/22 Pt will need infectious dz f/u in 2-4 wks Cont current meds ertapenem (INVanz) 1 gram in NSS 50 mL ivpb LOCKED DOSE chlorhexidine gluconate cloth 2 % pad insulin aspart (NovoLOG) inj sodium chloride 0.9 % flush/inj 10 mL Acetaminophen (Tylenol) tab 975 mg Albuterol Sulfate (Proventil) (2.5 MG/3ML) 0.083% inhalation solution 2.5 mg albuterol-ipratropium (Duoneb) inhalation solution 3 mL aspirin chew tab 81 mg atorvaSTATin (Lipitor) tab 40 mg brinZOLamide (Azopt) 1 % ophthalmic suspension 1 Drop dextrose 50 % inj 25 mL dextrose 50 % inj 50 mL dicyclomine (Bentyl) tab 20 mg Docusate Sodium (Colace) cap 100 mg Ferrous Sulfate (Feosol) tab 325 mg Furosemide (Lasix) tab 40 mg glucagon (Glucagen) inj 1 mg Glucose (Glutose 15) 40 % gel 15 g of glucose Glucose (Glutose 15) 40 % gel 30 g of glucose glucose chew tab 16 g HYDROmorphone (Dilaudid) inj 0.5 mg lactobacillus rhamnosus (GG) (Culturelle) cap 1 Capsule Latanoprost (Xalatan) 0.005 % ophthalmic solution 1 Drop melatonin tab 3 mg methIMAzole (Tapazole) tab 5 mg metoprolol succinate XL (toPROL XL) tab 12.5 mg metoprolol succinate XL (toPROL XL) tab 25 mg omeprazole (PriLOSEC) cap 20 mg ondansetron (Zofran) inj 4 mg oxygen GAS Polyethylene Glycol 3350 (Miralax) oral powder 17 g potassium chloride ER tab 20 mEq sertraline (Zoloft) tab 25 mg Spironolactone (Aldactone) tab 12.5 mg umeclidinium [place] (INCRUSE ellipta) 62.5 MCG/INH inhaler 1 Puff Zafirlukast (Accolate) tab 20 mg PHARMACOLOGIC VTE PROPHYLAXIS: This patient does not have an active medication from one of the medication groupers. CODE STATUS: Full Code EXPECTED DISCHARGE DATE: 07/29/2022 * Wayne Kelley MD - 07/27/2022 2:20 PM EDT Images from the original note were not included. [facility] 5A-5108/W INTERVAL HISTORY: 81 yo w/PMH of COPD, chronic respiratory failure (on 2 L NC during the day and 4 L NC at night), HFrEF, PAF (s/p watchman device so is no longer on anticoagulation), DM, recurrent diverticulitis, colovesicular fistula transfer to [facility] from [facility] for diverticulitis w/abscess Pt admitted to [facility] on 07/17/22. S/p 1 unit prbcs at [facility]. [facility] unable to place picc as well for IV abx. S/p IR drain placement on 07/25/2022 S/p Picc Some nausea and abd pain, overall feels ROS: Review of Systems All other systems reviewed and are negative. Objective Physical Exam Most Recent Vital Signs: BP: 94 mmHg/55 mmHg (07/27/22716) Pulse: 73 (07/27/22 1025) Temp: 35.89 C (07/27/22 07) Resp: 18 (07/27/22716) SpO2: 97 % (07/27/22 1025) Physical Exam Vitals and nursing note reviewed. Exam conducted with a church supervisor present. Constitutional: General: She is not in acute distress. Appearance: Normal appearance. Cardiovascular: Rate and Rhythm: Normal rate and regular rhythm. Pulses: Normal pulses. Heart sounds: Normal heart sounds. No murmur heard. No friction rub. No gallop. Pulmonary: Effort: Pulmonary effort is normal. No respiratory distress. Breath sounds: Normal breath sounds. No wheezing, rhonchi or rales. Abdominal: General: Abdomen is flat. Bowel sounds are normal. Palpations: Abdomen is soft. Comments: +IR drain Musculoskeletal: Right lower leg: No edema. Left lower leg: No edema. Skin: General: Skin is warm and dry. Capillary Refill: Capillary refill takes less than 2 seconds. Neurological: General: No focal deficit present. Mental Status: She is alert and oriented to person, place, and time. Drain Left;Lower;Quadrant Abdomen (Active) Number of days: 2 Power PICC Single Lumen Right;Upper Arm (Active) Number of days: 1 STUDIES: Labs and other studies reviewed with pertinent findings noted below: Lab results within last 7 days (see chart for full results) Units 07/27/22 0810 07/26/22 0451 07/25/22 1243 HGB g/dL 8.4* 8.4* 9.3* HCT % 27.7* 27.9* 29.7* WBC K/uL 10.89* 12.77* 11.87* PLT K/uL 413* 418* 462* Lab results within last 7 days (see chart for full results) Units 07/27/22 0810 07/26/22 0451 07/25/22 1243 Sodium mmol/L 138 139 140 Potassium mmol/L 4.0 4.7 4.3 Chloride mmol/L 101 103 103 CO2 mmol/L 30 32 30 BUN mg/dL 9 9 8 Creatinine mg/dL 0.9 0.9 0.8 Cx pending. Assessment and Plan IMPRESSION : Principal Problem: Diverticulitis of intestine with abscess Active Problems: Sleep apnea, obstructive Type 2 diabetes mellitus with hemoglobin A1c goal of less than 7.5% (HCC) COPD, group B, 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 ([facility]) Morbid obesity with BMI of 40.0-44.9, adult (HCC) Paroxysmal atrial fibrillation (HCC) Chronic systolic heart failure (HCC) Pulmonary HTN (HCC) Chronic hypoxemic respiratory failure (HCC) Resolved Problems: * No resolved hospital problems. * DIFFERENTIAL AND PLAN: 81 yo w/PMH of COPD, chronic respiratory failure (on 2 L NC during the day and 4 L NC at night), HFrEF, PAF (s/p watchman device so is no longer on anticoagulation), DM, recurrent diverticulitis, colovesicular fistula transfer to [facility] from [facility] for diverticulitis w/abscess drain management per IR. ?abscess vs ovarian cyst. IR help appreciated Inf dz help for IV abx appreciated. Await cx results start ertapenem per inf dz recs. End date 08/22/22 Pt will need infectious dz f/u in 2-4 wks Cont current meds ertapenem (INVanz) 1 gram in NSS 50 mL ivpb LOCKED DOSE chlorhexidine gluconate cloth 2 % pad insulin aspart (NovoLOG) inj sodium chloride 0.9 % flush/inj 10 mL Acetaminophen (Tylenol) tab 975 mg Albuterol Sulfate (Proventil) (2.5 MG/3ML) 0.083% inhalation solution 2.5 mg albuterol-ipratropium (Duoneb) inhalation solution 3 mL aspirin chew tab 81 mg atorvaSTATin (Lipitor) tab 40 mg brinZOLamide (Azopt) 1 % ophthalmic suspension 1 Drop dextrose 50 % inj 25 mL dextrose 50 % inj 50 mL dicyclomine (Bentyl) tab 20 mg Docusate Sodium (Colace) cap 100 mg Ferrous Sulfate (Feosol) tab 325 mg Furosemide (Lasix) tab 40 mg glucagon (Glucagen) inj 1 mg Glucose (Glutose 15) 40 % gel 15 g of glucose Glucose (Glutose 15) 40 % gel 30 g of glucose glucose chew tab 16 g HYDROmorphone (Dilaudid) inj 0.5 mg lactobacillus rhamnosus (GG) (Culturelle) cap 1 Capsule Latanoprost (Xalatan) 0.005 % ophthalmic solution 1 Drop melatonin tab 3 mg methIMAzole (Tapazole) tab 5 mg metoprolol succinate XL (toPROL XL) tab 12.5 mg metoprolol succinate XL (toPROL XL) tab 25 mg omeprazole (PriLOSEC) cap 20 mg ondansetron (Zofran) inj 4 mg oxygen GAS Polyethylene Glycol 3350 (Miralax) oral powder 17 g potassium chloride ER tab 20 mEq sertraline (Zoloft) tab 25 mg Spironolactone (Aldactone) tab 12.5 mg umeclidinium [place] (INCRUSE ellipta) 62.5 MCG/INH inhaler 1 Puff Zafirlukast (Accolate) tab 20 mg PHARMACOLOGIC VTE PROPHYLAXIS: This patient does not have an active medication from one of the medication groupers. CODE STATUS: Full Code EXPECTED DISCHARGE DATE: 07/29/2022 * Wayne Kelley MD - 07/26/2022 3:16 PM EDT Images from the original note were not included. [facility] 5A-5108/W INTERVAL HISTORY: 81 yo w/PMH of COPD, chronic respiratory failure (on 2 L NC during the day and 4 L NC at night), HFrEF, PAF (s/p watchman device so is no longer on anticoagulation), DM, recurrent diverticulitis, colovesicular fistula transfer to [facility] from [facility] for diverticulitis w/abscess Pt admitted to [facility] on 07/17/22. S/p 1 unit prbcs at [facility]. [facility] unable to place picc as well for IV abx. S/p IR drain placement on 07/25/2022 Some nausea and abd pain, overall feels better after procedure ROS: Review of Systems All other systems reviewed and are negative. Objective Physical Exam Most Recent Vital Signs: BP: 128 mmHg/74 mmHg (07/26/22 1100) Pulse: 81 (07/26/22 1400) Temp: 36.39 C (07/26/22 1100) Resp: 16 (07/26/22 1100) SpO2: 96 % (07/26/22 1400) Physical Exam Vitals and nursing note reviewed. Exam conducted with a church supervisor present. Constitutional: General: She is not in acute distress. Appearance: Normal appearance. Cardiovascular: Rate and Rhythm: Normal rate and regular rhythm. Pulses: Normal pulses. Heart sounds: Normal heart sounds. No murmur heard. No friction rub. No gallop. Pulmonary: Effort: Pulmonary effort is normal. No respiratory distress. Breath sounds: Normal breath sounds. No wheezing, rhonchi or rales. Abdominal: General: Abdomen is flat. Bowel sounds are normal. Palpations: Abdomen is soft. Comments: +IR drain Musculoskeletal: Right lower leg: No edema. Left lower leg: No edema. Skin: General: Skin is warm and dry. Capillary Refill: Capillary refill takes less than 2 seconds. Neurological: General: No focal deficit present. Mental Status: She is alert and oriented to person, place, and time. Peripheral Line Left;Lower Arm 22 Gauge (Active) Number of days: 1 Drain Left;Lower;Quadrant Abdomen (Active) Number of days: 1 STUDIES: Labs and other studies reviewed with pertinent findings noted below: .IR ASPIRATION ABSCESS/COLLECTION Result Date: 07/25/2022 IMPRESSION: Successful CT-guided percutaneous drainage catheter placement in the left pelvic fluid collection. Given fluid aspirated was cloudy and serous, fluid collection may be an ovarian cyst rather than a diverticular abscess. PLAN: Follow-up of cytology and culture results and appropriate management per the hospitalist service. The gravity drainage bag should always be attached to the patient's drainage catheter. Please record drain output daily. When output is less than 10 mL daily for 2consecutive days, drainage catheter may be removed. This collection will not require follow up imaging for the drain removal appointment. Lab results within last 7 days (see chart for full results) Units 07/26/22 0451 07/25/22 1243 HGB g/dL 8.4* 9.3* HCT % 27.9* 29.7* WBC K/uL 12.77* 11.87* PLT K/uL 418* 462* Lab results within last 7 days (see chart for full results) Units 07/26/22 0451 07/25/22 1243 Sodium mmol/L 139 140 Potassium mmol/L 4.7 4.3 Chloride mmol/L 103 103 CO2 mmol/L 32 30 BUN mg/dL 9 8 Creatinine mg/dL 0.9 0.8 Assessment and Plan IMPRESSION : Principal Problem: Diverticulitis of intestine with abscess Active Problems: Sleep apnea, obstructive Type 2 diabetes mellitus with hemoglobin A1c goal of less than 7.5% ([facility]) COPD, group B, 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 ([facility]) Morbid obesity with BMI of 40.0-44.9, adult (HCC) Paroxysmal atrial fibrillation (HCC) Chronic systolic heart failure (HCC) Pulmonary HTN (HCC) Chronic hypoxemic respiratory failure (HCC) Resolved Problems: * No resolved hospital problems. * DIFFERENTIAL AND PLAN: 81 yo w/PMH of COPD, chronic respiratory failure (on 2 L NC during the day and 4 L NC at night), HFrEF, PAF (s/p watchman device so is no longer on anticoagulation), DM, recurrent diverticulitis, colovesicular fistula transfer to [facility] from [facility] for diverticulitis w/abscess drain management per IR. ?abscess vs ovarian cyst. IR help appreciated IV team for picc line placement. If unable to place picc, pt will need IR placement of picc line. Inf dz help for IV abx appreciated. Await cx results Will start ertapenem after piccline is placed. Cont zosyn for now. Cont current meds Acetaminophen (Tylenol) tab 975 mg Albuterol Sulfate (Proventil) (2.5 MG/3ML) 0.083% inhalation solution 2.5 mg albuterol-ipratropium (Duoneb) inhalation solution 3 mL aspirin chew tab 81 mg atorvaSTATin (Lipitor) tab 40 mg brinZOLamide (Azopt) 1 % ophthalmic suspension 1 Drop dextrose 50 % inj 25 mL dextrose 50 % inj 50 mL dicyclomine (Bentyl) tab 20 mg Docusate Sodium (Colace) cap 100 mg Ferrous Sulfate (Feosol) tab 325 mg Furosemide (Lasix) tab 40 mg glucagon (Glucagen) inj 1 mg Glucose (Glutose 15) 40 % gel 15 g of glucose Glucose (Glutose 15) 40 % gel 30 g of glucose glucose chew tab 16 g HYDROmorphone (Dilaudid) inj 0.5 mg insulin aspart (NovoLOG) inj lactobacillus rhamnosus (GG) (Culturelle) cap 1 Capsule Latanoprost (Xalatan) 0.005 % ophthalmic solution 1 Drop melatonin tab 3 mg methIMAzole (Tapazole) tab 5 mg metoprolol succinate XL (toPROL XL) tab 12.5 mg metoprolol succinate XL (toPROL XL) tab 25 mg omeprazole (PriLOSEC) cap 20 mg ondansetron (Zofran) inj 4 mg oxygen GAS piperacillin-tazobactam (ZOSYN) 4.5 g in D5W 100 mL (FOUR hour infusion) Polyethylene Glycol 3350 (Miralax) oral powder 17 g potassium chloride ER tab 20 mEq sertraline (Zoloft) tab 25 mg Spironolactone (Aldactone) tab 12.5 mg umeclidinium [place] (INCRUSE ellipta) 62.5 MCG/INH inhaler 1 Puff Zafirlukast (Accolate) tab 20 mg PHARMACOLOGIC VTE PROPHYLAXIS: This patient does not have an active medication from one of the medication groupers. CODE STATUS: Full Code EXPECTED DISCHARGE DATE: 07/29/2022 A total of 37 minutes was spent providing care for this patient on the unit/floor. More than half of the time was spent counseling and coordinating care for the patient. Hare elements of the counseling and coordination of care included medical management and care coordination. * Jerry Hernandez DO - 07/26/2022 2:07 PM EDT PROGRESS NOTE - Interventional Radiology [facility]-[address] [place] [id number] Name: Savita Harrington Location: [facility] 5A-5108/W Date: 07/26/2022 Time: 2:08 PM Patient seen at bedside. Reports nausea and abdominal pain. States abdominal pain is improved. Still having output from drainage catheter. BP 128/74 | Pulse 81 | Temp 36.4 C (97.5 F) (Temporal Artery) | Resp 16 | Ht 1.651 m (5' 5") | Wt 99.9 kg (220 lb 2.1 oz) | SpO2 96% | BMI 36.63 kg/m | BSA 2.14 m General: NAD Head: NC/AT Eyes: anicteric sclera Resp: unlabored Abd: Obese, drainage catheter in place, serous fluid in drainage leg bag Results for SAVITA HARRINGTON ( ) as of 07/26/2022 14:29 Ref. Range 07/11/2022 14:15 07/25/2022 12:43 07/26/2022 04:51 WBC Latest Ref Range: 4.00 - 10.80 K/uL 18.94 (H) 11.87 (H) 12.77 (H) HGB Latest Ref Range: 12.0 - 15.3 g/dL 9.6 (L) 9.3 (L) 8.4 (L) HCT Latest Ref Range: 36.0 - 45.2 % 31.6 (L) 29.7 (L) 27.9 (L) MCV Latest Ref Range: 81.5 - 97.5 fL 91.6 89.2 90.9 PLT Latest Ref Range: 140 - 400 K/uL 369 462 (H) 418 (H) Cultures negative so far. Savita Harrington is a 81 year old female with pelvic fluid collection s/p drainage catheter insertion PPD 1. Suspect collection is ovarian cyst, not diverticular abscess. Plan to remove drainage catheter whenoutput is less than 10 mL daily or after 7 days, whichever is sooner. No repeat imaging is necessary. Phone number for IR placed in discharge instructions. Please contact IR with any questions/concerns. documented in this encounter H&P Notes * Jerry Hernandez DO - 07/25/2022 1:42 PM EDT PRE-SEDATION ASSESSMENT: Drainage Catheter Insertion Level of sedation planned: Moderate Patient's allergies reviewed: Yes H&P Review / Interval Note Documentation: I have reviewed the H&P previously performed, examined the patient today, and there are no new findings. Difficulty with sedation / anesthesia: No Sleep apnea: No (4L NC while sleeping, 2L NC when awake) History of snoring: No History of difficult intubation: No Decreased ROM neck flexion/extension: No Tracheal deviation: No Decreased ability to open mouth / TMJ: No Loose teeth / dentures / partial: Yes (upper dentures) Congenital deformities / abnormalities: No Dysphagia: No Mallampati Classification: II - soft palate, uvula, fauces visible Chest: Clear Heart: Irregular Rhythm Adequate Vascular Access: Yes ASA Risk Stratification (Select One): ASA 3 - Severe systemic disease, definite functional limitations The patient was identified and the procedure verified: Yes The patient was reevaluated immediately prior to the sedation: 07/25/2022 1:42 PM Consent obtained. * Areli Dela Cruz MD - 07/25/2022 12:50 PM EDT Images from the original note were not included. [facility] 5A-5108/W Hospital Medicine H&P PRESENTING PROBLEM: Diverticulitis w/abscess HPI: Patient w/PMH of COPD, chronic respiratory failure (on 2 L NC during the day and 4 L NC at night), HFrEF, PAF (s/p watchman device so is no longer on anticoagulation), DM, recurrent diverticulitis, colovesicular fistula presents to ED today for diverticulitis w/abscess. Patient had hospitalization for diverticulitis in May (she was initially admitted to [facility] then [place] [facility] She was deemed high risk for surgery and she was managed conservatively and discharged on PO antibiotics. She ended up being admitted again to [facility] on 07/17/2022 for LLQ pain [...] of the abscess. Patient was transferred to [facility] for IR proc edure to drain the abscess. Patient states she still has LLQ and LUQ, sharp and stabbing in nature.She gets nauseated if she tries to eat anything but she hasn't vomited. She reports her stools are loose and dark in appearance. Of note, she required 1 unit PRBCs during her stay at [facility]. Subjective ROS: Constitutional: no unintentional weight loss, no weakness and no dizziness Eyes: no worsening of vision, no diplopia or eye pain Ears: no hearing loss or ear pain Oropharynx: No sore throat or difficulty swallowing Resp: No increased SOB, no cough, no sputum and no wheezing Cardiac: no chest pain, no edema and no palpitations GI: + abd pain,+nausea, + loose stool. No vomiting. No visible blood in stool. Musculoskeletal: no significant joint or muscle pain and no swelling : No dysuria, no hematuria Neuro: No headache, no one sided weakness, no numbness or tingling and no vertigo Psych: denies feeling depressed or anxious and no difficulty sleeping Heme: no fever, no chills, no sweats and no abnormal bleeding Skin: no rash, no itching and no sores Past Medical History: Diagnosis Date ACEI/ARB contraindicated Asthma Carpal tunnel syndrome DM type 2, goal: symptom mgmt (HCC) Generalized osteoarthritis HTN, goal below 140/90 Mixed dyslipidemia Past Surgical History: Procedure Laterality Date APPENDECTOMY W/OTHER PROCEDURE 1960 when removed gall bladder COLONOSCOPY, DIAGNOSTIC (RECTUM) 05/29/2016 poor prep, diverticulosis/inpt [facility] COLONOSCOPY, DIAGNOSTIC (RECTUM) 06/05/2017 diverticulosis, repeat 3 yrs/[facility] COLONOSCOPY, DIAGNOSTIC (RECTUM) 02/28/2018 adenomatous polyps, diverticulosis, repeat 3 yrs / [facility] COLONOSCOPY, DIAGNOSTIC (RECTUM) 05/08/2020 inflammatory tissue on bx, diverticulosis / [facility] COLONOSCOPY, W/BIOPSY 03/20/2012 hyperplastic polyps rpt 3 years. EGD, FLEXIBLE, DIAGNOSTIC 04/29/2014 normal/inpt [facility] EGD, FLEXIBLE, DIAGNOSTIC 05/29/2016 fundic submucosal mass/inpt [facility] EGD, FLEXIBLE, DIAGNOSTIC 05/08/2020 normal / [facility] EGD, FLEXIBLE,W/ENDOSCOPIC US 11/08/2016 inflammatory changes, stomach lesion, repeat EUS 1.5 yrs/[facility] EGD, FLEXIBLE,W/ENDOSCOPIC US 05/01/2018 stromal cell (smooth muscle) neoplasm, CBD dilation, repeat 2 yrs (needs OV prior)/[facility] EGD, FLEXIBLE,W/ENDOSCOPIC US 09/01/2020 leiomyoma / [facility] INCISIONAL HERNIA REPAIR, LAP, REDUCIBLE 09/29/2012 Repair of incarcerated supraumbilical (incisional) hernia with [employer] mesh 09/29/12 LIGATE/CUT OVIDUCT(S) REMOVAL OF TONSILS, AGE 12+ age 11 REMOVE GALLBLADDER 1960 SIGMOIDOSCOPY, DIAGNOSTIC 04/29/2014 stool in rectum/inpt [facility] SMALL BOWEL ENDOSCOPY, REMOVE FOREIGN BODY mesh from prior hernia surgery, wrapped around small bowel. small bowel surgery Family History Problem Relation Age of Onset Breast Cancer Mother Heart disease Father No Known Problems Sister COPD Brother COPD Brother COPD Brother Diabetes Aunt (Unspecified) Other (JORDAN) Son not diagnosed Lung Disorder Grandfather (Paternal) ?COPD vs asthma Asthma Daughter As above otherwise non-contributory 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 Tobacco Use Smoking status: Never Smoker Smokeless tobacco: Never Used Vaping Use Vaping Use: Never used Substance Use Topics Alcohol use: No Drug use: No MEDICATIONS: Prior to admission medications have been reviewed. ALLERGIES: Diovan [valsartan], Enalapril, Escitalopram oxalate, Iodinated diagnostic agents, Iodine, Metoprolol tartrate, [place] oil-black currant-vit e, Verapamil, and Wellbutrin [bupropion hcl] Objective Physical Exam Most Recent Vital Signs: BP: 114 mmHg/77 mmHg (07/25/22 1103) Pulse: 97 (07/25/22 1103) Temp: 36.28 C (07/25/22 1103) Resp: 14 (07/25/22 1103) SpO2: General: Pt in bed, alert, in no acute distress Head: Normocephalic, No masses, lesions, tenderness or abnormalities Eye Exam: Conjunctiva are pink and non-injected, sclera clear Ears: External ears normal Oropharynx: mucous membranes moist without erythema or exudates Neck: supple, nontender, no cervical adenopathy palpable Heart: regular rate & rhythm and no murmur appreciated Lungs: no respiratory distress, CTA, without wheeze, rhonchi or crackles Abdomen: + BS, soft, +tender LLQ, nondistended, no rebound tenderness or guarding Lower Extremities: trace edema, no calf tenderness, no stasis changes noted Peripheral Line Left;Lower Arm 22 Gauge (Active) Number of days: 0 STUDIES: Labs and other studies reviewed with pertinent findings noted below: CBC, BMP and INR pending EKG pending Assessment and Plan IMPRESSION/PLAN: Principal Problem: Diverticulitis of intestine with abscess Active Problems: Sleep apnea, obstructive Type 2 diabetes mellitus with hemoglobin A1c goal of less than 7.5% ([facility]) COPD, group B, 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 ([facility]) Morbid obesity with BMI of 40.0-44.9, adult (HCC) Paroxysmal atrial fibrillation (HCC) Chronic systolic heart failure (HCC) Pulmonary HTN (HCC) Chronic hypoxemic respiratory failure (HCC) Resolved Problems: * No resolved hospital problems. * Admit to med surg floor NPO except meds pending IR procedure today Continue zosyn (planned end date is 08/14) We may need to re-consult ID since she's having the abscess drained, unsure if that will change theantibiotic plan Hold home glimepiride, use novolog sliding scale while inpatient Continue home oxygen 2 L during the day and 4 L at HS Plan to resume home lasix, potassium and spironolactone tomorrow Holding home low dose lisinopril for now CM consult PHARMACOLOGIC VTE PROPHYLAXIS: will use SCDs since she's planned to have a procedure CODE STATUS: Full Code EXPECTED DISCHARGE DATE: No information available Patient seen along with Dr. Dela Cruz and we discussed the case and plan of care. Dahlia Juan PA-C Attending Attestation: I performed a history and physical examination of the patient on 07/25/2022 81-year-old woman with history of COPD, chronic respiratory failure on 2 L of nasal cannula during the day and 4 L at night, heart failure with reduced ejection fraction, proximal AFib status post Watchman device, diabetes, recurrent diverticulitis was transferred from [facility] for IR procedure for recurrent diverticulitis with abscess has been worsening. Patient reports left-sided pain, intermittent nausea. Denies any vomiting. Reports occasional loosestool. Exam notable for elderly woman in no obvious distress, left upper lower tenderness, trace pedal edema. Recurrent diverticulitis with abscess. Transferred from [facility] for IR procedure management of abscess. Discussed with Dr. at [facility]. ID had seen early on admission over day and recommended four weeks of IV antibiotics. We need to consult ID here tomorrow after IR procedure plan for today to determine final antibiotics recommendations Continue IV zosyn for now. Keep NPO for now for IR procedure Get admission labs I have discussed the patient's management with the advanced practitioner. Please refer to the physician administration assistant's note for the documented findings and plan of care. documented in this encounter Procedure Notes * Sigrid Payne RN - 07/26/2022 4:57 PM EDT Associated Order(s): Central Line PROCEDURE NOTE [facility]-[address] [address] Name: Savita Harrington Location: [facility] 5A-5108/W Date: 07/26/2022 Time: 4:57 PM Central Line General Information and Staff: Performed by: Sigrid Payne RN Assisted by: Ayana Walsh RN Procedure Date/Time: 07/26/2022 4:45 PM Patient Location: Med/Surg Indication: venous access Other: IV antibiotics x4 weeks Patient identity confirmed: Verbally with patient Verbal confirmation: Name and date of Verbal consent obtained: Yes Written consent obtained: Yes Consent given by: Patient Understanding of procedure being performed: Yes Understanding of procedure matches verbalized consent: Yes Procedure consent matches procedure scheduled: Yes Allergies reviewed: Yes Site marked: yes Verify correct position: Yes Radiology Studies available/reviewed: yes Relevant Lab Results available/reviewed: yes Required items available: yes Other healthcare professional(s) verbalize(s) agreement with time out: Yes Name(s): Ayana Walsh RN Time out: Immediately prior to the procedure a time out was completed Anticoagulation/Anti-platelet therapy: Yes Medication: Other (comment) (Aspirin) Procedure Detail: Sterility Preparation: mask worn, sterile gloves worn, cap worn, sterile sheet used, sterile gown worn and full body drape Provider Hand Hygiene: alcohol-based hand rub Placement conditions: Elective Patient Position: Supine Prep: Chlorhexidine Local Anesthetic Used: Yes (2 ml lidocaine given with intradermal wheal) Catheter Type: Power PICC PICC Laterality: Right and Upper PICC General Location: Arm PICC Specific Location: Cephalic Catheter size: 4 Fr Catheter Total Length (cm): 40 Catheter Internal Length (cm): 40 Catheter External Length (cm): 0 Lot Number: [id number] Number of Lumens: Single lumen Number of Needle Passes: 1 Placement: target vein identified, needle advanced into vein and blood aspirated and guidewire advanced into vein Radiologic Support with Sterile Technique: ultrasound guidance used Sterile gel and probe cover used for ultrasound?: Yes Intravenous Verification: verified by ultrasound, venous blood return and verified by x-ray Outcomes/Complications: patient tolerated procedure well with no complications Estimated blood loss (mL): 2 ml Post Insertion: Post Insertion Details: all ports aspirated, all ports flushed easily, guidewire was removed, examined and appears intact and dressing was applied Site cleansed: Chlorhexidine Line secured with: Commercial Device (StatLock) Dressing applied: Gel Chlorhexidine Gluconate Attestation: Attestation: I personally performed the procedure myself Additional Comments: PICC insertion and maintenance reviewed with pt; verbalized understanding. Of note, [facility] was unable to insert PICC at their facility prior to transfer here. Catheter to vein ratio 15%. Ayana Walsh RN unsuccessful x3 in L arm- unable to cannulate veins (attempted basilic, brachial, and cephalic) even though ultrasound appeared to have needle tip in vein. All new sterile fiel d set up; this nurse then moved to R arm- able to cannulate R cephalic vein without difficulty although had to reposition pt multiple times to get catheter past R shoulder. Pt tolerated all very well. Limb alert band applied. 1700- Waiting for CXR verification. 1800- CXR verified tip @ cavoatrial junction. Guidewire removed intact. PICC may now be used. * Darrion Davis DO - 07/25/2022 1:14 PM EDT Associated Order(s): EKG REASON FOR STUDY: Preop examination CONCLUSIONS: Atrial fibrillation Left anterior fascicular block Nonspecific ST abnormality Abnormal ECG When compared with ECG of 25-JUN-2022 15:24, No significant change was found Ventricular Rate: 85 Atrial Rate: 108 QRS Duration: 124 QT/QTc: 370/440 ms P-R-T [place]: 0 : -45 : 91 degrees documented in this encounter Consult Notes * Chavez Jarrell MD - 07/26/2022 1:18 PM EDT Associated Order(s): INFECTIOUS DISEASE CONSULT IP CONSULT - Infectious Disease [facility]-[address] [address] Name: Savita Harrington Location: [address] Date: 07/26/2022 Time: 1:18 PM REQUESTING SERVICE: Medicine REASON FOR CONSULT: Diverticular abscess HPI: Patient is a 81 year old female admitted to the hospital on 07/25/2022. Ms. 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 She was hospitalized in May with the same and managed conservatively. She was discharged on po abx and then wound up being readmitted to [facility] on 07/17/22. The plan was then to place her on 4 weeks of IV pip-tazo, but a PICC line could not be placed and she had worsening of the abscess. She was transfered to [facility]. Here she was evaluated by IR and had a drain placed (?abscess vs ovarian cyst). Overall she is feeling somewhat better, but still has some pain. She also has some nausea after eating, but no vomiting. Her bowel movements have improved, however. No more hematochezia or diarrhea. ALLERGIES: Diovan [valsartan], Enalapril, Escitalopram oxalate, Iodinated diagnostic agents, Iodine, Metoprolol tartrate, Euclid oil-black currant-vit e, Verapamil, and Wellbutrin [bupropion hcl] PAST MEDICAL HISTORY: Past Medical History: Diagnosis Date ACEI/ARB contraindicated Asthma Carpal tunnel syndrome DM type 2, goal: symptom mgmt (HCC) Generalized osteoarthritis HTN, goal below 140/90 Mixed dyslipidemia PAST SURGICAL HISTORY: Past Surgical History: Procedure Laterality Date APPENDECTOMY W/OTHER PROCEDURE 1959 when removed gall bladder COLONOSCOPY, DIAGNOSTIC (RECTUM) 05/29/2016 poor prep, diverticulosis/inpt [facility] COLONOSCOPY, DIAGNOSTIC (RECTUM) 06/05/2017 diverticulosis, repeat 3 yrs/[facility] COLONOSCOPY, DIAGNOSTIC (RECTUM) 02/28/2018 adenomatous polyps, diverticulosis, repeat 3 yrs / [facility] COLONOSCOPY, DIAGNOSTIC (RECTUM) 05/08/2020 inflammatory tissue on bx, diverticulosis / [facility] COLONOSCOPY, W/BIOPSY 03/20/2012 hyperplastic polyps rpt 3 years. EGD, FLEXIBLE, DIAGNOSTIC 04/29/2014 normal/inpt [facility] EGD, FLEXIBLE, DIAGNOSTIC 05/29/2016 fundic submucosal mass/inpt [facility] EGD, FLEXIBLE, DIAGNOSTIC 05/08/2020 normal / [facility] EGD, FLEXIBLE,W/ENDOSCOPIC US 11/08/2016 inflammatory changes, stomach lesion, repeat EUS 1.5 yrs/[facility] EGD, FLEXIBLE,W/ENDOSCOPIC US 05/01/2018 stromal cell (smooth muscle) neoplasm, CBD dilation, repeat 2 yrs (needs OV prior)/[facility] EGD, FLEXIBLE,W/ENDOSCOPIC US 09/01/2020 leiomyoma / [facility] INCISIONAL HERNIA REPAIR, LAP, REDUCIBLE 09/29/2012 Repair of incarcerated supraumbilical (incisional) hernia with Atrium mesh 09/29/12 IR ASPIRATION ABSCESS/COLLECTION 07/25/2022 LIGATE/CUT OVIDUCT(S) REMOVAL OF TONSILS, AGE 12+ age 11 REMOVE GALLBLADDER 1960 SIGMOIDOSCOPY, DIAGNOSTIC 04/29/2014 stool in rectum/inpt [facility] SMALL BOWEL ENDOSCOPY, REMOVE FOREIGN BODY mesh from prior hernia surgery, wrapped around small bowel. small bowel surgery SOCIAL HISTORY: 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 Tobacco Use Smoking status: Never Smoker Smokeless tobacco: Never Used Vaping Use Vaping Use: Never used Substance Use Topics Alcohol use: No Drug use: No FAMILY HISTORY and FAMILY STATUS: Family History Problem Relation Age of Onset [...] Son Son Alive Niko Alive Niko Alive ROS: Constitutional: (+) fever and (+) chills Eyes: (-) negative, no amaurosis fugax, pain, blurred vision, or redness ENT: (-) negative: no headaches, vertigo, hearing loss, sinus, ear, or throat problems Cardiovascular: (-) negative: no chest pain, dyspnea, syncope, or palpitations Pulmonary: (-) negative: no cough, wheezing, or shortness of breath Abdominal/GI: (+) abdominal pain Female : (-) negative: no dysuria, pelvic pain, irregular menses, or vaginal discharge Musculoskeletal: (-) negative: no pain Hematology/oncology: (-) otherwise negative Skin: (-) negative: no rash or new or changing moles Neurology: (-) negative: no focal neurologic defect PHYSICAL EXAMINATION: Most Recent Vital Signs: BP: 128 mmHg/74 mmHg (07/26/221099) Pulse: 62 (07/26/221099) Temp: 36.39 C (07/26/221099) Resp: 16 (07/26/221099) SpO2: 97 % (07/26/221099) Vital Signs Last 24 Hours: Systolic BP: Most Recent Systolic BP Av.8 mmHg Min: 89 mmHg Max: 135 mmHg Temperature: Most Recent Temperature Av.4 C Min: 35.89 C Max: 36.78 C Pulse: Pulse Av.1 Min: 62 Max: 98 Respirations: Resp Av.4 Min: 16 Max: 18 SpO2: SpO2 Av.4 % Min: 91 % Max: 99 % Constitutional: (+) chronically ill HEENT: normal: normocephalic, atraumatic; no masses, tenderness, or adenopathy Eyes: sclera and conjunctiva normal Neck: supple, normal range of motion CV: normal rate, normal rhythm Chest: normal respiratory effort, breath sounds normal Abdomen: soft, mildly tender, no guarding or rebund Musculoskeletal: (-) negative Extremities: no clubbing, cyanosis, or edema, otherwise grossly normal, warm, and dry Lymph Nodes: no adenopathy Skin: warm, dry: Neuro: alert, oriented to person, place, and time LABS: Labs reviewed as indicated below: WBC 12.77 Hgb 8.4 Platelets 418 Creatinine 0.9 BUN 9 MICROBIOLOGY DATA: Gram stain from IR drainage negative. Cultures show no growth to date. IMAGING: CT from May reviewed: IMPRESSION: 1. Colonic diverticulosis. There is colonic wall thickening and pericolonic fat stranding within the midportion of the sigmoid colon. There is suggestion of a diverticular abscess measuring 3.1 x 2.3 cm (series 2, image 57). 2. Stable left adrenal nodule IR procedure from 07/25/22 also reviewed IMPRESSION: 1. Diverticulitis and abscess RECOMMENDATIONS: OK to continue IV pip-tazo while in the hospital, but it would be easier to use ertapenem once daily as an outpatient. She failed po therapy and had progression so we should stick with IV therapy andfollow-up imaging to guide duration of treatment. Please see separate discharge note for details. * Cora Wilkins RN - 07/26/2022 11:37 AM EDT Associated Order(s): CARE MANAGEMENT CONSULT IP See ancillary assessment note * Jerry Hernandez DO - 07/25/2022 1:41 PM EDT Associated Order(s): INTERVENTIONAL RADIOLOGY CONSULT IP Interventional Radiology Note Plan for pelvic fluid collection drainage catheter insertion today. documented in this encounter Nursing Notes * Marly Jones RN - 07/29/2022 3:00 PM EDT NURSING DISCHARGE PROGRESS NOTE [address] [address] Name: Savita Harrington Location: [facility] 5A-5108/W Date: 07/29/2022 Time: 3:00 PM FUNCTIONAL INDEPENDENCE MEASURE (must be completed for all patients on discharge): Feedin = Complete independence Locomotion: 4 = Complete independence Expression: 4 = Complete independence Transfer Mobility: 4 = Complete independence Social Interaction: 4 = Complete independence Destination: Transferred to SNF OXYGENATION: Discharged with O2: Yes, Liter Flow: 2L/min and Type: NC PATIENT DEVICES: abdominal drain Pt discharged to [facility]. Pt has drain in abdomen in place, draining clear yellow fluids. Report called to BIJAL Beyer. Pt belongings packed and with patient at discharge. Pt discharged with O2in place, wears 2L/min NC in daytime and 4L/min NC HS. * Marly Jones RN - 07/29/2022 2:59 PM EDT Pt being discharged to [facility]. Report called to BIJAL Beyer. * Ruma Garcia LPN - 07/28/2022 6:29 PM EDT [place] [address] End Shift Added Details Name: Savita Harrington Date: 07/28/2022 Time: 6:29 PM Overall impression: Stable. New or worsening signs and/or symptoms this shift: None. Plan for next shift: Continue to monitor output from drain. * Ruma Garcia LPN - 07/27/2022 5:56 PM EDT [address] [address] End Shift Added Details Name: Savita Harrington Date: 07/27/2022 Time: 5:56 PM Overall impression: Stable. New or worsening signs and/or symptoms this shift: None. Plan for next shift: Continue to monitor drain output. * Yoon Saucedo RN - 07/25/2022 3:38 PM EDT Procedure: CT Guided abdominal abscess aspiration/drain placement Pt placed on procedure table with comfort measures intact. Hemodynamic monitoring placed and initiated, VS stable. Pt denies any complaints at current time. 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 Timeout performed by Dr. Jerry Hernandez at 1540. Dr. Hernandez reassessed patient immediately prior to moderate sedation administration and procedure start. Patient prepped for procedure. Skin around biopsy area cleaned with chloraprep and dried. 10 mL 1% buffered lidocaine administered locally to left lower abdomen by . Access obtained. Images obtained. Access advanced. Images obtained. 14g pigtail catheter inserted into the area of fluid collection in the abdomen. 40 ml yellow, translucent fluid obtained and sent for cytology and cultures. Catheter secured to skin with suture, left open to air. Attached to leg bag which was secured to patient's left leg. Post procedure image obtained. Patient tolerated procedure well without complications. All wires, catheters, sheaths and other devices have been inspected prior to the procedure for damage. All items not intended to remain in the patient have been inspected, accounted for and have beenremoved from the patient at the end of the procedure. This has been confirmed by the operating physician. Pt recieved moderate sedation for their procedure, the patient recieved fentanyl and versed and wassedated for a total of 19 minutes. Start 1541 End 1600 Total medications given Versed: 1 mg Fentanyl: 25 mcg 1% buffered lidocaine: 10 mL * Marly Jones RN - 07/25/2022 11:11 AM EDT Pt admitted to room 5108W. Pt AO x 3, on 2L O2 via NC. Pt direct admit from [facility]. Pt ambulated from stretcher to bed and was able to ambulate to bathroom without assistive device. Pt does have guaze on RUE, inner arm from failed PICC attempt performed at [facility]. Pt oriented to room, call harrison in reach. documented in this encounter Miscellaneous Notes * Ancillary Progress Note - Cora Wilkins RN - 07/29/2022 2:53 PM EDT ADULT CARE MANAGEMENT - DISCHARGE NOTE [facility] [address] Name: Savita Harrington Location: [place] [id number] Date: 07/29/2022 Time: 2:53 PM The following coordination of care and discharge plan has been coordinated with the care team, patient, family and/or caregiver according to the patients needs and preferences. Discharge Discharge Insurance considerations verified and completed: Yes (07/29/221450) Discharge Transportation: Wheelchair Van (07/29/221450) Date of scheduled discharge transportation: 07/29/22 (07/29/221450) Time of scheduled discharge transportation: 1600 (07/29/221450) Patient declined post-hospital transition of care recommendation: Inpatient Rehab ([facility]) (07/29/221450) Final D/C Plan - Complete at time of D/C Final Discharge Plan (Complete only at time of Discharge): IP Rehab (07/29/221450) Destination - Admitted Since 07/25/2022 Service Provider Selected Services Address Phone Fax Patient Preferred Last Updated [facility] [address] [place] [phone] Cora Wilkins RN 07/29/2022 5966 Narrative: Discussed with patient plan for discharge to [facility] today. Voiced acceptance and understanding. Liliana at [facility] made aware transport set up for 1600 today. * Communication - Roxanna Leong RN - 07/29/2022 2:02 PM EDT Please call Interventional Radiology for drain removal when drainage is <10mL/day for 2 consecutive days. [phone] * Ancillary Progress Note - Cora Wilkins RN - 07/29/2022 12:57 PM EDT Spoke with Liliana from [facility]. Verified patient can go to facility today anytime after 1400. Dr. Kelley made aware. Stated will discharge to [facility] today. Notified Lindsey from [facility] Plan to discharge patient to [facility] today. 1420: Discussed with patient plan for discharge to [facility] today. Voiced acceptance and understanding. Liliana at [facility] made aware transport set up for 1600 today. * Care Plan - Whitley Kennedy RN - 07/29/2022 6:34 AM EDT Clinical Goal(s): Pt will have no falls or injuries this shift (07/28/222105) Possible barriers to meeting goal(s)/advancing plan of care: O2 tubing, pain, SE of pain medication Stability of the patient: Moderately stable - low risk of patient condition declining or worsening Summary regarding today's goal(s): Met: Pt without fall or injury this shift Recommendations: Continue plan of care * Care Plan - Talia Hargrove RN - 07/28/2022 5:57 AM EDT Clinical Goal(s): Pt will report adequate pain control this shift (07/27/221999) Possible barriers to meeting goal(s)/advancing plan of care: clinical condition Stability of the patient: Moderately stable - low risk of patient condition declining or worsening Summary regarding today's goal(s): Met: Pt reported adequate pain control with PRN pain medications Recommendations: continue with plan of care and administering PRN pain medications as needed * Progress Notes - Non-Billable - Chavez Jarrell MD - 07/26/2022 1:38 PM EDT DISCHARGE PROGRESS NOTE - Infectious Disease [facility]-[address] [address] Name: Savita Harrington Location: [facility] 5A-5108/W Date: 07/26/2022 Time: 1:38 PM FINAL IMPRESSION AND RECOMMENDATIONS: Syndrome Intraabdominal infection [...] of her abdomen near the 4 week jerry. ID will sign off for now. Please call with any questions or should her clinical course change. * Ancillary Progress Note - Doreen Dixon RDN - 07/26/2022 12:57 PM EDT CLINICAL NUTRITION ADULT RISK ASSESSMENT [address] [address] Name: Savita Harrington Location: [facility] 5A-5108/W Date: 07/26/2022 Time: 12:57 PM How patient was identified (select 2): date and Name Savita Harrington is a 81 year old female being assessed for clinical nutrition risk related to reduceddietary intake and skin breakdown Primary diagnosis: Diverticulitis; drain in LLQ for pelvic fluid Other pertinent information: Met with patient at bedside for nutrition risk assessment. Pt reports a diminished appetite due to feeling nauseous after eating. She denies any vomiting. Pt does use ONS(Glucerna) daily and would like to receive Boost Glucose Control daily during admission. Pt reportsshe follows a low fiber diet at home, due to patient's condition pt will need this added to her diet order. Pt's current weight is her usual body weight. Anthropometrics Measurements Admission weight (for dietitians): 99.9 kg Height: 165.1 cm (5' 5") (07/25/22 1034) Weight: 99.9 kg (220 lb 2.1 oz) (07/25/22 1034) BMI: 36.63 (07/25/22 1034) Usual Body Weight or EDW for Dialysis Patients: 100 kg Diet: 4 Choices (60 gm) Consistent Carbohydrate Heart Healthy, 2 gm Sodium Previously followed diet: Low fiber Food Allergies/Intolerances: [place]ucl[place] oil black currant vitamin E Oral Nutrition Supplement (ONS): None Pertinent medications/vitamins/minerals/supplements: Colace (not provided), Ferrous Sulfate, Lasix,Novolog, Culturelle, Prilosec, Potassium Chloride RISK FACTORS: Adult Energy Intake: Less than 75% of estimated energy requirement for greater than 7 days (moderate, acute illness). Interpretation of Weight Change: No recent/significant weight change Skin: Compromise with nutrition-related implications NUTRITION RISK CATEGORY: Nutrition Risk Category: Low/Moderate (0-1 factors) Clinical Nutrition Recommendations: Diet: Add fiber restricted due to diverticulitis NUTRITION INTERVENTION/PLAN: Orders: Change diet to Fiber Restricted, Hearth Healthy 2gm, Consistent Carbohydrate 60gm/meal Oral nutrition supplement added Boost Glucose Control (1 cup provides 190 calories, 16 grams protein, 16 grams carbohydrate, 30 mcg vitamin K) daily Risk/Re-risk Assessment completed. Continue current care plan Will follow and adjust nutritional plan as medical condition requires. Please contact for change(s)in patient condition requiring earlier intervention. MEENU Guerra, RDN, LDN Clinical Dietitian I Available via [employer] * Ancillary Progress Note - Cora Wilkins RN - 07/26/2022 11:30 AM EDT CARE MANAGEMENT - ADULT INITIAL SCREENING [address] [address] Name: Savita Harrington Location: [facility] 5A-5108/W Date: 07/26/2022 Time: 11:31 AM Patient Class: Inpatient (07/26/221122) Discussed patient with the interdisciplinary care team. This Electronic Court Recorder performed a chart review and met with patient at bedside to complete admission screen and assessed needs for transition planning. The daycare manager role and services were explained and emotional support was provided. 30 Day Readmission Screening 30 Day Readmission Readmission within 30 days?: No (07/26/221122) Chief Complaint: No chief complaint on file. Prior Living Arrangements What was your living situation prior to admission/observation?: Independently (07/26/221122) Do you have any children, pets, or other dependents that you are currently caring for?: No (07/26/221122) Living Quarters: House (07/26/221122) How many stories is the dwelling?: One Story (07/26/221122) Number of steps to enter living quarters:: 5 with rails (07/26/221122) Location of bathroom(s): All floors or Single story dwelling (07/26/221122) Do you have serious difficulty walking or climbing stairs? (5 years old or older): No (07/25/22 1034) History of falling: Yes (07/26/22999) Prior Level of Functioning Describe the patient's ability prior to admission/observation to perform ADLs: Performs independently (07/26/221122) Patient uses assistive device: Yes (07/26/221122) If yes, choose:: Walker;Cane (07/26/221122) Caregiver Information Emergency Contact(s) Name Relation Home Work Mobile Stephani Horta Child [phone] Taylor Adams Child [phone] Kaci Moreno [phone] Risk Stratification/Psychosocial/Care Gaps Risk Stratification Medical and Behavioral Health Concerns Identified: Chronic disease;Multiple comorbidities;Advanced age with fragility (07/26/221122) Psycho Social/Care Gaps concerns identified upon admission:: Adjustment to illness/injury () Accessed Neighborly to connect patients to social care resources: No (07/26/221122) OBRA or OPTIONS needed for placement: No (07/26/221122) Readmission Risk Score: 18 (07/26/221122) AM-PAC Score With Stairs : 23 (07/26/22999) Comments: Patient was a transfer from [facility]. PMH: DM2, COPD, CHF, pulmonary HTN, chronic hypoxic respiratory failure, paroxysmal Afib, morbid obesity, diverticulitis. Consutls with ID, CM and interventional radiology. Lives alone in 1 story home with 5 steps, that have rails on both sides, to enter.Has walker, cane and home O2 through [facility] Patient. Family live close and help as needed. Family transports. Patient voices no needs at home at this time. Healthcare coverage with Medicare and [email or web address]. Prior to Admission Services Services Prior to Admission RN STAFF Services (Services received within the last 30 days with exception, Psych within last two years): Home Health (07/26/221122) List All Provider/Service Name: HH 1x/wk. Not sure what provider/service (07/26/221122) RN STAFF Transportation (Services received within the last 30 days): Family/Friends Personal Vehicle (07/26/221122) Outpatient Electronic Court Recorder: no, not applicable Patient/Family Expectations: Discharge home. Anticipated Disposition Plan & Post Acute Needs Anticipated Plan Anticipated D/C disposition per abbreviated screening: Routine discharge or self care, No D/C planning needs identified. Will monitor for status change (07/26/221122) For further screening information, please refer to the Care Management flow document. * Care Plan - Marly Michael RN - 07/26/2022 4:54 AM EDT Clinical Goal(s): pt will have adequate pain control this shift (07/25/22 2300) Possible barriers to meeting goal(s)/advancing plan of care: Patient came in with diverticulitis Stability of the patient: Moderately stable - low risk of patient condition declining or worsening Summary regarding today's goal(s): Met: pt had adequate pain control this shift Recommendations: Continue to assess pain and intervene as needed * Care Plan - Marly Jones RN - 07/25/2022 6:30 PM EDT Clinical Goal(s): Pt will report pain <6 this shift (07/25/22 1101) Possible barriers to meeting goal(s)/advancing plan of care: Admitting diagnosis. Stability of the patient: Moderately stable - low risk of patient condition declining or worsening Summary regarding today's goal(s): Not met: Patient had pain of 7/10 this shift. Recommendations: Continue to follow plan of care. * Ancillary Progress Note - Joanna Smith RN - 07/25/2022 3:44 PM EDT CM received text message from Liliana at [facility]. They had been following patient for possible admission while she was at [facility]. She requested pt be open in TENA as she was transferred here. CM opened patient up for review. documented in this encounter Plan of Treatment Upcoming Encounters Date Type Specialty Care Team Description 07/30/2022 Laboratory Laboratory Processing [place], [facility] [address] [place] [address] Arrived 08/05/2022 Telemedicine Hematology Oncology [facility]ue[facility] [address] [facility] [address] 09/12/2022 Office Visit General Surgery Dionte Snyder MD [address] [place] [address] 10/08/2022 Office Visit Orthopedics Eliezer Gifford, DO [address] [facility] [place] [address] 10/10/2022 Office Visit Internal Medicine Marcela Pinto MD [address] [place] [address] 01/03/2023 Office Visit Cardiology Hammad Lopez, DO [facility] [place] [address] Pending Results Name Type Priority Associated Diagnoses Date /Time CULTURE, WOUND, DEEP, AEROBIC AND ANAEROBIC Lab Routine 07/25/2022 2:25 PM EDT Health Maintenance Due Date Last [...] Additional history exists GFR - Renal Function 01/27/2023 07/29/2022, 07/28/2022, 07/27/2022, Additional history exists Alb / Creat Ratio 02/19/2023 02/19/2022, , 07/27/2018, Additional history exists CKD PHOS USE SMARTSET 02202 02/19/202302/10, 03/09/2021, 03/22/2019 DIABETES-EYE EXAM 03/08/2023 03/08/2022, , 08/07/2020, Additional history exists CKD HGB USE SMARTSET 15273 07/29/202307/29, 07/28/2022, 07/27/2022, Additional history exists O2 ASSESSMENT COMPLETED IN PAST YEAR FOR COPD 07/29/2023 07/29/2022 DXA Scan 08/08/2025 08/08/2020, 04/13, 06/19/2010, Additional [...] Procedure Name Priority Date/Time Associated Diagnosis Comments GLUCOSE METER, POINT OF CARE PREMA 07/29/2022 11:49 AM EDT GLUCOSE METER, POINT OF CARE PREMA 07/29/2022 7:28 AM EDT BASIC METABOLIC PANEL Routine 07/29/2022 5:12 AM EDT CBC Routine 07/29/2022 5:12 AM EDT GLUCOSE METER, POINT OF CARE PREMA 07/28/2022 9:23 PM EDT GLUCOSE METER, POINT OF CARE PREMA 07/28/2022 4:43 PM EDT GLUCOSE METER, POINT OF CARE PREMA 07/28/2022 11:20 AM EDT GLUCOSE METER, POINT OF CARE PREMA 07/28/2022 8:00 AM EDT BASIC METABOLIC PANEL Routine 07/28/2022 4:56 AM EDT CBC Routine 07/28/2022 4:56 AM EDT GLUCOSE METER, POINT OF CARE PREMA 07/27/2022 9:27 PM EDT GLUCOSE METER, POINT OF CARE PREMA 07/27/2022 4:36 PM EDT GLUCOSE METER, POINT OF CARE PREMA 07/27/2022 12:00 PM EDT BASIC METABOLIC PANEL Routine 07/27/2022 8:10 AM EDT CBC Routine 07/27/2022 8:10 AM EDT GLUCOSE METER, POINT OF CARE PREMA 07/27/2022 7:19 AM EDT GLUCOSE METER, POINT OF CARE PREMA 07/26/2022 9:21 PM EDT XR CHEST 1 VIEW STAT 07/26/2022 5:06 PM EDT ANE GHS CENTRAL LINE Routine 07/26/2022 4:57 PM EDT GLUCOSE METER, POINT OF CARE PREMA 07/26/2022 4:57 PM EDT GLUCOSE METER, POINT OF CARE PREMA 07/26/2022 11:29 AM EDT GLUCOSE METER, POINT OF CARE PREMA 07/26/2022 7:43 AM EDT BASIC METABOLIC PANEL Routine 07/26/2022 4:51 AM EDT CBC Routine 07/26/2022 4:51 AM EDT GLUCOSE METER, POINT OF CARE PREMA 07/25/2022 9:14 PM EDT GLUCOSE METER, POINT OF CARE PREMA 07/25/2022 4:26 PM EDT IR ASPIRATION ABSCESS/COLLECTION Routine 07/25/2022 3:59 PM EDT CYTOLOGY Routine 07/25/2022 3:59 PM EDT GLUCOSE METER, POINT OF CARE PREMA 07/25/2022 2:57 PM EDT CULTURE, WOUND, DEEP, AEROBIC AND ANAEROBIC Routine 07/25/2022 2:25 PM EDT HC ECG TRACING ONLY STAT 07/25/2022 1 :14 PM EDT Preop examination INFLUENZA A/B RSV SARS-COV2,PCR STAT 07/25/2022 1:05 PM EDT MRSA SCREEN, PCR Routine 07/25/2022 1:05 PM EDT PT INR STAT 07/25/2022 12:44 PM EDT BASIC METABOLIC PANEL STAT 07/25/2022 12:43 PM EDT CBC STAT 07/25/2022 12:43 PM EDT documented in this encounter Results * GLUCOSE METER, POINT OF CARE (07/29/2022 11:49 AM EDT) Glucose Meter 115 70 - 120 mg/dL [facility] Specimen Blood - Whole blood specimen (specimen) Performing Organization Address [facility] de Phone Number [facility] [address] [place] [address] * GLUCOSE METER, POINT OF CARE (07/29/2022 7:28 AM EDT) Glucose Meter 119 70 - 120 mg/dL [facility] Specimen Blood - Whole blood specimen (specimen) Performing Organization Address [facility] de Phone Number [facility] [address] [place] [address] * (ABNORMAL) BASIC METABOLIC PANEL (07/29/2022 5:12 AM EDT) BUN 7 6 - 20 mg/dL [facility] Creatinine 0.7 0.5 - 1.0 mg/dL [facility] Estimated Glomerular Filtration Rate 84Comment:eGFR is calculated based on the CKD-EPI 2020 equation >=60 mL/min [facility] Sodium 142 135 - 146 mmol/L [facility] Potassium 4.1 3.5 - 5.1 mmol/L [facility] Chloride 103 98 - 107 mmol/L [facility] CO2 34(H) 22 - 32 mmol/L [facility] Anion Gap 5(L) 7 - 15 mmol/L [facility] Glucose 127(H) 70 - 120 mg/dL [facility] Calcium 9.0 8.4 - 10.2 mg/dL [facility] Specimen Blood - Venous blood specime n (specimen) Performing Organization Address [facility] de Phone Number [facility] [address] [place] [address] * (ABNORMAL) CBC (07/29/2022 5:12 AM EDT) WBC 8.83 4.00 - 10.80 K/uL [facility] RBC 3.26 3.85 - 5.15 M/uL [facility] HGB 9.1(L) 12.0 - 15.3 g/dL [facility] HCT 29.4(L) 36.0 - 45.2 % [facility] MCV 90.2 81.5 - 97.5 fL [facility] MCH 27.9 27.0 - 34.0 pg [facility] MCHC 31.0 32.0 - 36.0 g/dL [facility] RDW 16.7 11.5 - 15.5 % [facility] PLT 399 140 - 400 K/uL [facility] MPV 9.0 6.6 - 11.1 fL [facility] nRBCs 0 <=0 /100 WBCs [facility] Specimen Blood - Venous blood specime n (specimen) Performing Organization Address [facility] Co de Phone Number LABORATORY [address] [address] * (ABNORMAL) GLUCOSE METER, POINT OF CARE (07/28/2022 9:23 PM EDT) Glucose Meter 150(H) 70 - 120 mg/dL [facility] Specimen Blood - Whole blood specimen (specimen) Performing Organization Address [facility] Co de Phone Number [facility] [address] [place] [address] * GLUCOSE METER, POINT OF CARE (07/28/2022 4:43 PM EDT) Glucose Meter 109 70 - 120 mg/dL [facility] Specimen Blood - Whole blood specimen (specimen) Performing Organization Address [facility] de Phone Number [facility] [address] [place] [phone] * GLUCOSE METER, POINT OF CARE (07/28/2022 11:20 AM EDT) Glucose Meter 120 70 - 120 mg/dL [facility] Specimen Blood - Whole blood specimen (specimen) Performing Organization Address [facility] de Phone Number [facility] [address] [place] [address] * GLUCOSE METER, POINT OF CARE (07/28/2022 8:00 AM EDT) Glucose Meter 98 70 - 120 mg/dL [facility] Specimen Blood - Whole blood specimen (specimen) Performing Organization Address [facility] Co de Phone Number [facility] [address] [place] [address] * (ABNORMAL) BASIC METABOLIC PANEL (07/28/2022 4:56 AM EDT) BUN 9 6 - 20 mg/dL [facility] Creatinine 0.9 0.5 - 1.0 mg/dL [facility] Estimated Glomerular Filtration Rate 65Comment:eGFR is calculated based on the CKD-EPI 2020 equation >=60 mL/min [facility] Sodium 139 135 - 146 mmol/L [facility] Potassium 3.5 3.5 - 5.1 mmol/L [facility] Chloride 100 98 - 107 mmol/L [facility] CO2 33(H) 22 - 32 mmol/L [facility] Anion Gap 6(L) 7 - 15 mmol/L [facility] Glucose 115 70 - 120 mg/dL [facility] Calcium 9.1 8.4 - 10.2 mg/dL [facility] Specimen Blood - Venous blood specime n (specimen) Performing Organization Address [facility] Co de Phone Number [facility] [address] [place], [place] [phone] * (ABNORMAL) CBC (07/28/2022 4:56 AM EDT) WBC 9.82 4.00 - 10.80 K/uL LAB[facility] GL RBC 3.14 3.85 - 5.15 M/uL [facility] GL HGB 8.6(L) 12.0 - 15.3 g/dL [facility] HCT 28.3(L) 36.0 - 45.2 % [facility] MCV 90.1 81.5 - 97.5 fL [facility] MCH 27.4 27.0 - 34.0 pg [facility] MCHC 30.4 32.0 - 36.0 g/dL [facility] RDW 16.7 11.5 - 15.5 % [facility] PLT 398 140 - 400 K/uL [facility] MPV 9.3 6.6 - 11.1 fL [facility] nRBCs 0 <=0 /100 WBCs [facility] Specimen Blood - Venous blood specime n (specimen) Performing Organization Address [facility] Co de Phone Number [facility] [address] [place], [place] [id number] * (ABNORMAL) GLUCOSE METER, POINT OF CARE (07/27/2022 9:27 PM EDT) Glucose Meter 155(H) 70 - 120 mg/dL [facility] Specimen Blood - Whole blood specimen (specimen) Performing Organization Address [facility] de Phone Number [facility] [address] [place] [phone] * (ABNORMAL) GLUCOSE METER, POINT OF CARE (07/27/2022 4:36 PM EDT) Glucose Meter 128(H) 70 - 120 mg/dL [facility] Specimen Blood - Whole blood specimen (specimen) Performing Organization Address [facility] Co de Phone Number [facility] [address] [place] [phone] * (ABNORMAL) GLUCOSE METER, POINT OF CARE (07/27/2022 12:00 PM EDT) Glucose Meter 126(H) 70 - 120 mg/dL [facility] Specimen Blood - Whole blood specimen (specimen) Performing Organization Address [facility] de Phone Number [facility] [address] [place] [phone] * BASIC METABOLIC PANEL (07/27/2022 8:10 AM EDT) BUN 9 6 - 20 mg/dL [facility] GL Creatinine 0.9 0.5 - 1.0 mg/dL [facility] GL Estimated Glomerular Filtration Rate 66Comment:eGFR is calculated based on the CKD-EPI 2020 equation >=60 mL/min [facility] Sodium 138 135 - 146 mmol/L [facility] Potassium 4.0 3.5 - 5.1 mmol/L [facility] Chloride 101 98 - 107 mmol/L [facility] CO2 30 22 - 32 mmol/L [facility] Anion Gap 7 7 - 15 mmol/L [facility] Glucose 115 70 - 120 mg/dL [facility] Calcium 8.7 8.4 - 10.2 mg/dL [facility] Specimen Blood - Venous blood specime n (specimen) Performing Organization Address [facility] de Phone Number LABORATORY [address] [address] * (ABNORMAL) CBC (07/27/2022 8:10 AM EDT) WBC 10.89(H) 4.00 - 10.80 K/uL [facility] RBC 3.06 3.85 - 5.15 M/uL [facility] HGB 8.4(L) 12.0 - 15.3 g/dL [facility] HCT 27.7(L) 36.0 - 45.2 % [facility] MCV 90.5 81.5 - 97.5 fL [facility] MCH 27.5 27.0 - 34.0 pg [facility] MCHC 30.3 32.0 - 36.0 g/dL [facility] RDW 16.8 11.5 - 15.5 % [facility] PLT 413(H) 140 - 400 K/uL [facility] MPV 9.0 6.6 - 11.1 fL [facility] nRBCs 0 <=0 /100 WBCs [facility] Specimen Blood - Venous blood specime n (specimen) Performing Organization Address [facility] de Phone Number LABORATORY [address] [address] * GLUCOSE METER, POINT OF CARE (07/27/2022 7:19 AM EDT) Glucose Meter 114 70 - 120 mg/dL [facility] Specimen Blood - Whole blood specimen (specimen) Performing Organization Address [facility] de Phone Number [facility] [address] [place] [phone] * (ABNORMAL) GLUCOSE METER, POINT OF CARE (07/26/2022 9:21 PM EDT) Glucose Meter 156(H) 70 - 120 mg/dL [facility] Specimen Blood - Whole blood specimen (specimen) Performing Organization Address [facility] Co de Phone Number [facility] [address] [place] [place] [address] * XR CHEST 1 VIEW (07/26/2022 5:06 PM EDT) Anatomical Region Laterality Modality Chest Digital Radiogra phy Specimen Impressions [facility] - 07/26/2022 5:51 PM EDT IMPRESSION: Right-sided PICC line terminates at the level of the atrial caval junction/proximal right atrium. THIS DOCUMENT HAS BEEN ELECTRONICALLY SIGNED BY JANETTE NIXON MD Narrative [facility] - 07/26/2022 5:51 PM EDT PROCEDURE INFORMATION: Exam: XR Chest Exam date and time: 07/26/2022 4:51 PM Age: 81 years old Clinical indication: Other: Picc placement TECHNIQUE: Imaging protocol: Radiologic exam of the chest. Views: 1 view. COMPARISON: DX XR CHEST 2 VIEWS 08/23/2021 3:14 PM FINDINGS: Tubes, catheters and devices: A right-sided PICC line is in place with the distal tip terminating at the level of the atrial caval junction/proximal right atrium. Lungs: Mild left basilar atelectasis. No consolidation. Pleural spaces: Unremarkable. No pleural effusion. No pneumothorax. Heart/Mediastinum: The heart is mildly enlarged. Bones/joints: Unremarkable. Procedure Note Janette Nixon MD - 07/26/2022 PROCEDURE INFORMATION: Exam: XR Chest Exam date and time: 07/26/2022 4:51 PM Age: 81 years old Clinical indication: Other: Picc placement TECHNIQUE: Imaging protocol: Radiologic exam of the chest. Views: 1 view. COMPARISON: DX XR CHEST 2 VIEWS 08/23/2021 3:14 PM FINDINGS: Tubes, catheters and devices: A right-sided PICC line is in place with the distal tip terminating at the level of the atrial caval junction/proximalright atrium. Lungs: Mild left basilar atelectasis. No consolidation. Pleural spaces: Unremarkable. No pleural effusion. No pneumothorax. Heart/Mediastinum: The heart is mildly enlarged. Bones/joints: Unremarkable. IMPRESSION IMPRESSION: Right-sided PICC line terminates at the level of the atrial caval junction/proximal right atrium. THIS DOCUMENT HAS BEEN ELECTRONICALLY SIGNED BY JANETTE NIXON MD [facility] * Central Line (07/26/2022 4:57 PM EDT) Sigrid Amaya RN - 07/26/2022 4:57 PM EDT Sigrid Payne RN 07/26/2022 6:08 PM Central Line General Information and Staff: Performed by: Sigrid Payne RN Assisted by: Ayana Walsh RN Procedure Date/Time: 07/26/2022 4:45 PM Patient Location: Med/Surg Indication: venous access Other: IV antibiotics x4 weeks Patient identity confirmed: Verbally with patient Verbal confirmation: Name and date of Verbal consent obtained: Yes Written consent obtained: Yes Consent given by: Patient Understanding of procedure being performed: Yes Understanding of procedure matches verbalized consent: Yes Procedure consent matches procedure scheduled: Yes Allergies reviewed: Yes Site marked: yes Verify correct position: Yes Radiology Studies available/reviewed: yes Relevant Lab Results available/reviewed: yes Required items available: yes Other healthcare professional(s) verbalize(s) agreement with time out: Yes Name(s): Ayana Walsh RN Time out: Immediately prior to the procedure a time out was completed Anticoagulation/Anti-platelet therapy: Yes Medication: Other (comment) (Aspirin) Procedure Detail: Sterility Preparation: mask worn, sterile gloves worn, cap worn, sterile sheet used, sterile gown worn and full body drape Provider Hand Hygiene: alcohol-based hand rub Placement conditions: Elective Patient Position: Supine Prep: Chlorhexidine Local Anesthetic Used: Yes (2 ml lidocaine given with intradermal wheal) Catheter Type: Power PICC PICC Laterality: Right and Upper PICC General Location: Arm PICC Specific Location: Cephalic Catheter size: 4 Fr Catheter Total Length (cm): 40 Catheter Internal Length (cm): 40 Catheter External Length (cm): 0 Lot Number: [id number] Number of Lumens: Single lumen Number of Needle Passes: 1 Placement: target vein identified, needle advanced into vein and blood aspirated and guidewire advanced into vein Radiologic Support with Sterile Technique: ultrasound guidance used Sterile gel and probe cover used for ultrasound?: Yes Intravenous Verification: verified by ultrasound, venous blood return and verified by x-ray Outcomes/Complications: patient tolerated procedure well with no complications Estimated blood loss (mL): 2 ml Post Insertion: Post Insertion Details: all ports aspirated, all ports flushed easily, guidewire was removed, examined and appears intact and dressing was applied Site cleansed: Chlorhexidine Line secured with: Commercial Device (StatLock) Dressing applied: Gel Chlorhexidine Gluconate Attestation: Attestation: I personally performed the procedure myself Additional Comments: PICC insertion and maintenance reviewed with pt; verbalized understanding. Of note, [facility] was unable to insert PICC at their facility prior to transfer here. Catheter to vein ratio 15%. Ayana Walsh RN unsuccessful x3 in L arm- unable to cannulate veins (attempted basilic, brachial, and cephalic) even though ultrasound appeared to have needle tip in vein. All new sterile field set up; this nurse then moved to R arm- able to cannulate R cephalic vein without difficulty although had to reposition pt multiple times to get catheter past R shoulder. Pt tolerated all very well. Limb alert band applied. 1700- Waiting for CXR verification. 1800- CXR verified tip @ cavoatrial junction. Guidewire removed intact. PICC may now be used. * (ABNORMAL) GLUCOSE METER, POINT OF CARE (07/26/2022 4:57 PM EDT) Glucose Meter 137(H) 70 - 120 mg/dL [facility] Specimen Blood - Whole blood specimen (specimen) Performing Organization Address [facility] de Phone Number [facility] [address] [place] [address] * (ABNORMAL) GLUCOSE METER, POINT OF CARE (07/26/2022 11:29 AM EDT) Glucose Meter 122(H) 70 - 120 mg/dL [facility] Specimen Blood - Whole blood specimen (specimen) Performing Organization Address [facility] de Phone Number [facility] [address] [place] [address] * GLUCOSE METER, POINT OF CARE (07/26/2022 7:43 AM EDT) Glucose Meter 115 70 - 120 mg/dL [facility] Specimen Blood - Whole blood specimen (specimen) Performing Organization Address [facility] de Phone Number [facility] [address] [place] [address] * (ABNORMAL) CBC (07/26/2022 4:51 AM EDT) WBC 12.77(H) 4.00 - 10.80 K/uL [facility] RBC 3.07 3.85 - 5.15 M/uL [facility] HGB 8.4(L) 12.0 - 15.3 g/dL [facility] HCT 27.9(L) 36.0 - 45.2 % [facility] MCV 90.9 81.5 - 97.5 fL [facility] MCH 27.4 27.0 - 34.0 pg [facility] MCHC 30.1 32.0 - 36.0 g/dL [facility] RDW 17.0 11.5 - 15.5 % [facility] PLT 418(H) 140 - 400 K/uL [facility] MPV 9.1 6.6 - 11.1 fL [facility] nRBCs 0 <=0 /100 WBCs [facility] Specimen Blood - Venous blood specime n (specimen) Performing Organization Address [facility] de Phone Number [facility] [address] [address] [address] * (ABNORMAL) BASIC METABOLIC PANEL (07/26/2022 4:51 AM EDT) Pathologist [facility] BUN 9 6 - 20 mg/dL [facility] Creatinine 0.9 0.5 - 1.0 mg/dL [facility] Estimated Glomerular Filtration Rate 66Comment:eGFR is calculated based on the CKD-EPI 2020 equation >=60 mL/min [facility] Sodium 139 135 - 146 mmol/L LABORATORY GL Potassium 4.7 3.5 - 5.1 mmol/L LABORATORY GL Chloride 103 98 - 107 mmol/L LABORATORY GLH CO2 32 22 - 32 mmol/L LABORATORY GL Anion Gap 4(L) 7 - 15 mmol/L [facility] Glucose 114 70 - 120 mg/dL LABORATORY GL Calcium 8.8 8.4 - 10.2 mg/dL [facility] Specimen Blood - Venous blood specime n (specimen) Performing Organization Address [facility] de Phone Number LABORATORY [address] [address] * (ABNORMAL) GLUCOSE METER, POINT OF CARE (07/25/2022 9:14 PM EDT) Glucose Meter 140(H) 70 - 120 mg/dL [facility] Specimen Blood - Whole blood specimen (specimen) Performing Organization Address [facility] Co de Phone Number [facility] [address] [place] [address] * GLUCOSE METER, POINT OF CARE (07/25/2022 4:26 PM EDT) Glucose Meter 105 70 - 120 mg/dL [facility] Specimen Blood - Whole blood specimen (specimen) Performing Organization Address [facility] Co de Phone Number [facility] [address] [place] [address] * IR ASPIRATION ABSCESS/COLLECTION (07/25/2022 3:59 PM EDT) Anatomical Region Laterality Modality Any Computed Tomogra phy Specimen Impressions [facility] - 07/25/2022 4:20 PM EDT IMPRESSION: Successful CT-guided percutaneous drainage catheter placement in the left pelvic fluid collection. Given fluid aspirated was cloudy and serous, fluid collection may be an ovarian cyst rather than a diverticular abscess. PLAN: Follow-up of cytology and culture results and appropriate management per the hospitalist service. The gravity drainage bag should always be attached to the patient's drainage catheter. Please record drain output daily. When output is less than 10 mL daily for 2 consecutive days, drainage catheter may be removed. This collection will not require follow up imaging for the drain removal appointment. Narrative [facility] - 07/25/2022 4:20 PM EDT PROCEDURE: CT guided left pelvic fluid collection drainage catheter placement. INDICATION: 81-year-old female with diverticulitis and an enlarging left pelvic fluid collection concerning for abscess presents for drainage catheter insertion. ATTENDING (OPERATING PHYSICIAN): DO NOEMI Cm RESIDENT (OPERATING PHYSICIAN): None SUPPORTING PROVIDER (ROLL FORMER): None. CONSENT: After a detailed discussion of the procedure, risks, benefits and alternative treatment options, informed consent was obtained. TIME OUT: A time out procedure was performed. The patient's identification was verified. Informed consent with agreement of procedure, site and position was obtained. All necessary equipment was available prior to procedure. CONTRAST: No contrast was administered. COMPLICATIONS: None. ANESTHESIA: Local lidocaine. IV Versed. IV Fentanyl. SEDATION TIME: Start to end: [id number]. Qualified nurse sedation observer Yoon Lewis, RN, Liam Muñoz, RN, and Tram Butler, RN. MEDICATIONS: See [facility] PROCEDURE DESCRIPTION: After survey CT images of the pelvis were performed, the collection in the left pelvis was studied. Then the access site was selected in the ventral abdominal wall and the site was prepped and draped in the usual sterile fashion. The skin and deep soft tissues were anesthetized and using image guidance, a 5 Fr one-step catheter-needle was inserted into the collection. Approximately 60 mL of cloudy, serous fluid was removed, placed in empty vials and sent to microbiology. An 035 wire was inserted into the collection via the access and after tract dilation, a 14 Fr locking loop catheter was inserted over the wire. The catheter was secured to the patient and attached to a gravity drainage bag. I personally performed the procedure. FINDINGS: Survey CT images demonstrate a left pelvic fluid collection, similar to recent imaging. Further imaging shows that the needle is in the collection. After aspiration, there is no significant residual collection. Final imaging demonstrates the catheter looped in the collection. No complication noted on post placement imaging. Procedure Note Jerry Hernandez DO - 07/25/2022 PROCEDURE: CT guided left pelvic fluid collection drainage catheter placement. INDICATION: 81-year-old female with diverticulitis and an enlarging leftpelvic fluid collection concerning for abscess presents for drainagecatheter insertion. ATTENDING (OPERATING PHYSICIAN): Jerry Hernandez DO SCRUBBED RESIDENT (OPERATING PHYSICIAN): None SUPPORTING PROVIDER (ROLL FORMER): None. CONSENT: After a detailed discussion of the procedure, risks, benefits andalternative treatment options, informed consent was obtained. TIME OUT: A time out procedure was performed. The patient's identificationwas verified. Informed consent with agreement of procedure, site andposition was obtained. All necessary equipment was available prior toprocedure. CONTRAST: No contrast was administered. COMPLICATIONS: None. ANESTHESIA: Local lidocaine. IV Versed. IV Fentanyl. SEDATION TIME: Start to end: [id number]. Qualified nurse sedation observerYoon Saucedo RN, Liam Muñoz, RN, and Tram Butler, RN. MEDICATIONS: See [facility] PROCEDURE DESCRIPTION: After survey CT images of the pelvis wereperformed, the collection in the left pelvis was studied. Then the accesssite was selected in the ventral abdominal wall and the site was preppedand draped in the usual sterile fashion. The skin and deep soft tissueswere anesthetized and using image guidance, a 5 Fr [id number]-ubmvbi was inserted into the collection. Approximately 60 mL ofcloudy, serous fluid was removed, placed in empty vials and sent tomicrobiology. An 035 wire was inserted into the collection via the accessand after tract dilation, a 14 Fr locking loop catheter was inserted overthe wire. The catheter was secured to the patient and attached to agravity drainage bag. I personally performed the procedure. FINDINGS: Survey CT images demonstrate a left pelvic fluid collection, similar torecent imaging. Further imaging shows that the needle is in thecollection. After aspiration, there is no significant residual collection.Final imaging demonstrates the catheter looped in the collection. Nocomplication noted on post placement imaging. IMPRESSION IMPRESSION: Successful CT-guided percutaneous drainage catheter placement in the leftpelvic fluid collection. Given fluid aspirated was cloudy and serous,fluid collection may be an ovarian cyst rather than a diverticularabscess. PLAN: Follow-up of cytology and culture results and appropriate managementper the hospitalist service. The gravity drainage bag should always beattached to the patient's drainage catheter. Please record drain outputdaily. When output is less than 10 mL daily for 2 consecutive days,drainage catheter may be removed. This collection will not require followup imaging for the drain removal appointment. Performing Organization Address [facility] de Phone Number [facility] * CYTOLOGY (07/25/2022 3:59 PM EDT) Specimen Performing Organization Address [facility] de Phone Number [facility] * GLUCOSE METER, POINT OF CARE (07/25/2022 2:57 PM EDT) Glucose Meter 100 70 - 120 mg/dL [facility] Specimen Blood - Whole blood specimen (specimen) Performing Organization Address [facility] de Phone Number [facility] [address] [facility] [place] [address] * EKG (07/25/2022 1:14 PM EDT) Specimen Procedure Note Darrion Davis DO - 07/25/2022 1:14 PM EDT REASON FOR STUDY: Preop examination CONCLUSIONS: Atrial fibrillation Left anterior fascicular block Nonspecific ST abnormality Abnormal ECG When compared with ECG of 25-JUN-2022 15:24, No significant change was found Ventricular Rate: 85 Atrial Rate: 108 QRS Duration: 124 QT/QTc: 370/440 ms P-R-T [place]: 0 : -45 : 91 degrees [facility] CARDIOLOGY * INFLUENZA A/B RSV SARS-COV2,PCR (07/25/2022 1:05 PM EDT) SARS-CoV-2 (COVID-19) Result Negative Comment: No SARS-CoV2 Coronavirus RNA detected by PCR (amplified probe). This express test was developed and its performance characteristics determined by [facility]. It has not been cleared or approved by the U.S. Food and Drug Administration (FDA). FDA does not require this test to go thru premarket FDA review. This test is used for clinical purposes. It should not be regarded as investigational or for research. This laboratory is certified under the Clinical Laboratory Improvement Amendments (CLIA) as qualified to perform high complexity clinical laboratory testing. This test is a nucleic acid amplification test (NAAT), a reverse transcriptase polymerase chain reaction (RT-PCR) test, or a Centers for Disease Control-acceptable equivalent. The test is performed in a high complexity Clinical Laboratory Improvement Amendments-(CLIA) certified laboratory. The test is acceptable for SARS-CoV-2 diagnosis, surveillance, and travel within the [place] and to most countries. Please check with local testing authorities about requirements before travel. The validation of bronchial specimens, tracheal aspirates, and sputum for this assay was developed and performance characteristics determined by [facility]. The validation of alternate specimen types has not been cleared or approved by the U.S. Food and Drug Administration (FDA). It has been determined that such clearance is not necessary. The validation of bronchial specimens, tracheal aspirates, and sputum for this assay was developed and performance characteristics determined by [facility]. The validation of alternate specimen types has not been cleared or approved by the U.S. Food and Drug Administration (FDA). It has been determined that such clearance or approval is not necessary. Negative LAB[facility]ORY [facility] Influenza A PCR Result NegativeComment:No Influenza A RNA detected by PCR (amplified probe) Negative [facility] Influenza B PCR Result NegativeComment:No Influenza B RNA detected by PCR (amplified probe) Negative [facility] RSV PCR Result NegativeComment:No Respiratory Syncytial Virus RNA detected by PCR (amplified probe) Negative [facility] Specimen Upper Respiratory - Swab spe cimen from nasal mid-turbinate (specimen) Performing Organization Address [facility] Co de Phone Number LAB[facility]ATORY [facility] [address] [place], [place] [id number] * MRSA SCREEN, PCR (07/25/2022 1:05 PM EDT) [facility] MRSA PCR Result NegativeComment:No Methicillin resistant Staphylococcus aureus detected by PCR (amplified probe). Negative [facility] Specimen Upper Respiratory - Swab of internal nose (specimen) Performing Organization Address [facility] de Phone Number [facility] [address] [place] [address] * PT INR (07/25/2022 12:44 PM EDT) [facility] Prothrombin Time 14.2 11.6 - 15.2 seconds [facility] INR 1.1 0.8 - 1.2 [facility] Specimen Blood - Venous blood specime n (specimen) Narrative [facility] - 07/25/2022 1:08 PM EDT Warfarin Therapy INR: 2.0-3.0 conventional anticoagulation INR: 2.5-3.5 high intensity anticoagulation Performing Organization Address [facility] de Phone Number LABORATORY [address] [address] * BASIC METABOLIC PANEL (07/25/2022 12:43 PM EDT) [facility] BUN 8 6 - 20 mg/dL [facility] Creatinine 0.8 0.5 - 1.0 mg/dL [facility] Estimated Glomerular Filtration Rate 71Comment:eGFR is calculated based on the CKD-EPI 2020 equation >=60 mL/min LABORATORY GL Sodium 140 135 - 146 mmol/L LABORATORY GL Potassium 4.3 3.5 - 5.1 mmol/L LABORATORY GL Chloride 103 98 - 107 mmol/L LABORATORY GLH CO2 30 22 - 32 mmol/L LABORATORY GL Anion Gap 7 7 - 15 mmol/L LABORATORY GL Glucose 116 70 - 120 mg/dL LABORATORY GL Calcium 9.0 8.4 - 10.2 mg/dL LABORATORY GL Specimen Blood - Venous blood specime n (specimen) Performing Organization Address [facility] de Phone Number LAB[facility]ATORY [facility] [address] [place] [address] * (ABNORMAL) CBC (07/25/2022 12:43 PM EDT) WBC 11.87(H) 4.00 - 10.80 K/uL LABORATORY GL RBC 3.33 3.85 - 5.15 M/uL LABORATORY GLH HGB 9.3(L) 12.0 - 15.3 g/dL LABORATORY GLH HCT 29.7(L) 36.0 - 45.2 % LABORATORY GL MCV 89.2 81.5 - 97.5 fL LABORATORY GL MCH 27.9 27.0 - 34.0 pg LABORATORY GL MCHC 31.3 32.0 - 36.0 g/dL LABORATORY GL RDW 16.8 11.5 - 15.5 % LAB[facility]ORY [facility] PLT 462(H) 140 - 400 K/uL [facility] MPV 8.8 6.6 - 11.1 fL [facility] nRBCs 0 <=0 /100 WBCs LAB[facility] Specimen Blood - Venous blood specime n (specimen) Performing Organization Address [facility] de Phone Number LAB[facility]ATORY [facility] [address] [place] [address] documented in this encounter Visit Diagnoses Diagnosis Diverticulitis of intestine with abscess- Primary Preop examination Preoperative examination, unspecified Pelvic fluid collection Other ascites Diverticulitis of colon Diverticulitis of colon (without mention of hemorrhage) Type 2 diabetes mellitus with hemoglobin A1c goal of less than 7.5% (HCC) Sleep apnea, obstructive Obstructive sleep apnea (adult) (pediatric) Pulmonary HTN (HCC) Other chronic pulmonary heart diseases Paroxysmal atrial fibrillation (HCC) Atrial fibrillation Morbid obesity with BMI of 40.0-44.9, adult (HCC) Morbid obesity COPD, group B, 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 ([facility]) Chronic systolic heart failure (HCC) Chronic systolic heart failure Chronic hypoxemic respiratory failure (HCC) Chronic respiratory failure documented in this encounter Administered Medications Inactive Administered Medications - up to 3 most recent administrations Medication Order MAR Action Action Date Dose Rate Site Acetaminophen (Tylenol) tab 975 mg 975 mg, Oral, Q4H PRN Pain, Mild, Pain, Moderate, Starting on Mary Carmen 07/25/22 at 1236, Until 07/29/22 at 1914, Maximum of 4 grams (4000 mg) per day. Given 07/28/2022 9:02 PM EDT 975 mg documented in this encounter Active and Recently Administered Medications Times are shown in EDT. Scheduled Medication Order 07/27/2022 07/28/2022 07/29/2022 albuterol-ipratropium (Duoneb) inhalation solution 3 mL (CANCELED) 3 mL, Nebulizer, RESPQID, First dose on Mary Carmen 07/25/22 at 1545, Until Discontinued, 3 mL = 0.5 mg ipratropium/ 2.5 mg albuterol 0729 (Given - Provider: Laura Mcintyre, RESIDENT IN DIAGNOSTIC RADIOLOGY)1023 (Given - Provider: Laura Mcintyre, RESIDENT IN DIAGNOSTIC RADIOLOGY)1418 (Given - Provider: Laura Mcintyre, RESIDENT IN DIAGNOSTIC RADIOLOGY)1908 (Given - Provider: Usha Hair, PHILIPPE) 0731 (Given - Provider: Christ Cantrell, PHILIPPE)1100 (Not Given - Provider: Christ Cantrell RRT - Reason: Other-Notify Provider)1428 (Given - Provider: Crhist Cantrell, PHILIPPE) aspirin chew tab 81 mg 81 mg, Oral, DAILY, First dose on Fri07/26/22 at 0900, Until Discontinued 0849 (Given - Provider: Ruma Garcia LPN) 1011 (Given - Provider: Ruma Garcia LPN) 0912 (Given - Provider: Marly Jones RN) atorvaSTATin (Lipitor) tab 40 mg 40 mg, Oral, DAILY, First dose on Fri07/25/22 at 1300, Until Discontinued 0850 (Given - Provider: Ruma Garcia LPN) 1010 (Given - Provider: Ruma Garcia LPN) 0913 (Given - Provider: Marly Jones RN) brinZOLamide (Azopt) 1 % ophthalmic suspension 1 Drop 1 Drop, Both eyes, BID, First dose on Mary Carmen 07/25/22 at 2100, Until Discontinued 0849 (Given - Provider: Ruma Garcia LPN)2222 (Given - Provider: Talia Hargrove RN) 1010 (Given - Provider: Ruma Garcia LPN)2102 (Given - Provider: Whitley Kennedy, BIJAL) 0913 (Given - Provider: Marly Jones, BIJAL) chlorhexidine gluconate cloth 2 % pad External, [id number], First dose on 07/27/22 at 1000, Until Discontinued, Applied to appropriate patients per window shade cutter and mounter's recommendations following daily care. May use more than one Pad (cloth/wipe) as needed to complete care. 1000 (Given - Provider: Ruma Garcia LPN) 1000 (Given - Provider: Ruma Garcia LPN) 1000 (Due) dicyclomine (Bentyl) tab 20 mg 20 mg, Oral, DAILY, First dose on Fri07/26/22 at 0900, Until Discontinued 0850 (Given - Provider: Ruma Garcia LPN) 1011 (Given - Provider: Ruma Garcia LPN) 0913 (Given - Provider: Marly Jones RN) Docusate Sodium (Colace) cap 100 mg 100 mg, Oral, DAILY, First dose on Fri07/26/22 at 0900, Until Discontinued, For oral administration ONLY, if route of administration is other than oral and alternative product must be ordered. 0900 (Not Given - Provider: Ruma Garcia LPN - Reason: Refused-Notify Provider) 0900 (Not Given - Provider: Ruma Garcia LPN - Reason: Refused-Notify Provider) 0900 (Not Given - Provider: Marly Jones RN - Reason: Refused-Notify Provider) ertapenem (INVanz) 1 gram in NSS 50 mL ivpb LOCKED DOSE 1,000 mg, IV Piggyback, Q24H, 26 doses, First dose on 07/27/22 at 1100, Last dose on Fri08/21/22 at 1100, Administer over 30 Minutes, . 1135 (New Bag - Provider: Ruma Garcia LPN) 1010 (New Bag - Provider: Ruma Garcia LPN) 1236 (New Bag - Provider: Marly Jones, BIJAL) Ferrous Sulfate (Feosol) tab 325 mg 325 mg, Oral, DAILY, First dose on Fri07/26/22 at 0900, Until Discontinued, This med should NOT be Crushed or Chewed 0850 (Given - Provider: Ruma Garcia LPN) 1011 (Given - Provider: Ruma Garcia LPN) 0913 (Given - Provider: Marly Jones RN) Furosemide (Lasix) tab 40 mg 40 mg, Oral, BID, First dose on Fri07/26/22 at 2100, Until Discontinued 0850 (Given - Provider: Ruma Garcia LPN)2100 (Not Given - Provider: Talia Hargrove RN - Reason: Refused-Notify Provider) 0900 (Not Given - Provider: Ruma Garcia LPN - Reason: Clinician Judgement-Notify Provider)2100 (Not Given - Provider: Whitley Kennedy RN - Reason: Parameter(s) Not Met) 0900 (Not Given - Provider: Marly Jones RN - Reason: Refused-Notify Provider) insulin aspart (NovoLOG) inj Subcutaneous, ACHS, First dose (after last modification) on Fri07/27/22 at 0730, Until Discontinued, LOW DOSE, Insulin sensitivity factor (ISF) = 50 (Elderly insulin sensitive patient) Serum blood sugar less than 70 mg/dl or symptomatic (obtain lab blood sugar and notify provider); 151 - 200 mg/dl (1 units); 201 - 250 mg/dl (2 units); 251 - 300 mg/dl (3 units); 301 - 350 mg/dl (4 units); 351 - 400 mg/dl (5 units); greater than 400 mg/dl (call provider) Correctional insulin may be given if the patient is NPO. 0730 (No Insulin - Provider: Ruma Garcia LPN - Reason: Parameter(s) Not Met)1130 (No Insulin - Provider: Ruma Garcia LPN - Reason: Parameter(s) Not Met)1630 (No Insulin - Provider: Ruma Garcia LPN - Reason: Parameter(s) Not Met)2218 (Given - Provider: Talia Hargrove RN) 0730 (No Insulin - Provider: Ruma Garcia LPN - Reason: Parameter(s) Not Met)1130 (No Insulin - Provider: Ruma Garcia LPN - Reason: Parameter(s) Not Met)1630 (No Insulin - Provider: Ruma Garcia LPN - Reason: Parameter(s) Not Met)2200 (Not Given - Provider: Whitley Kennedy RN - Reason: Parameter(s) Not Met) 0730 (No Insulin - Provider: Marly Jones RN - Reason: Parameter(s) Not Met)1130 (No Insulin - Provider: Marly Jones RN - Reason: Parameter(s) Not Met) lactobacillus rhamnosus (GG) (Culturelle) cap 1 Capsule 1 Capsule, Oral, DAILY, First dose on Fri07/26/22 at 0900, Until Discontinued 0850 (Given - Provider: Ruma Garcia LPN) 1011 (Given - Provider: Ruma Garcia LPN) 0913 (Given - Provider: Marly Jones RN) Latanoprost (Xalatan) 0.005 % ophthalmic solution 1 Drop 1 Drop, Both eyes, HS, First dose on Fri07/25/22 at 2200, Until Discontinued 222 (Given - Provider: Talia Hargrove RN) 2101 (Given - Provider: Whitley Kennedy RN) methIMAzole (Tapazole) tab 5 mg 5 mg, Oral, DAILY, First dose on Fri07/26/22 at 0900, Until Discontinued 0850 (Given - Provider: Ruma Garcia LPN) 1010 (Given - Provider: Ruma Garcia LPN) 0913 (Given - Provider: Marly Jones RN) metoprolol succinate XL (toPROL XL) tab 12.5 mg 12.5 mg, Oral, HS, First dose on Fri07/25/22 at 2200, Until Discontinued, Hold for HR less than 60 or SBP below 100 and notify service if dose is held This med should NOT be Crushed or Chewed. 2220 (Given - Provider: Talia Hargrove RN) 2105 (Not Given - Provider: Whitley Kennedy RN - Reason: Parameter(s) Not Met) metoprolol succinate XL (toPROL XL) tab 25 mg 25 mg, Oral, DAILY, First dose on Fri07/26/22 at 0900, Until Discontinued, Hold for HR less than 60 or SBP below 100 and notify service if dose is held This med should NOT be Crushed or Chewed. 0849 (Given - Provider: Ruma Garcia LPN) 0900 (Not Given - Provider: Ruma Garcia LPN - Reason: Parameter(s) Not Met) 0913 (Given - Provider: Marly Jones, RN) omeprazole (PriLOSEC) cap 20 mg 20 mg, Oral, BID, First dose on Fri07/26/22 at 2100, Until Discontinued, This med should NOT be Crushed or Chewed 0850 (Given - Provider: Ruma Garcia LPN)2218 (Given - Provider: Talia Hargrove RN) 1011 (Given - Provider: Ruma Garcia LPN)2103 (Given - Provider: Whitley Kennedy, BIJAL) 0912 (Given - Provider: Marly Jones, RN) oxygen GAS Nasal cannula, OXYGEN, First dose on Fri07/25/22 at 1600, Until Discontinued, Device/Managed by: Low Flow Device, Goal SPO2 (%): 88-94, Starting Device: Nasal Cannula, Inital Flow Rate (LPM): 2L, Lowest Support: Nasal Cannula: Flow 0-6 LPM. Titrate up/down by 1 LPM., Titration Interval: Q2 minutes and as needed., Notify Provider: For sudden DECREASE in resting SPO2 to less than 85% and when escalating delivery device., 2 L via NC during the day and 4 L via NC at HS 0000 (Oxygen On - Provider: Talia Hargrove RN)0800 (Oxygen On - Provider: Ruma Garcia LPN)1600 (Oxygen On - Provider: Ruma Garcia LPN) 0000 (Oxygen On - Provider: Talia Hargrove RN)0800 (Oxygen On - Provider: Ruma Garcia LPN)1600 (Oxygen On - Provider: Rmua Garcia LPN) 0000 (Oxygen On - Provider: Whitley Kennedy, BIJAL)0800 (Oxygen On - Provider: Marly Jones, BIJAL) piperacillin-tazobactam (ZOSYN) 4.5 g in D5W 100 mL (FOUR hour infusion) (CANCELED) IV Piggyback, 4.5 g, Q8HNOW, 15 doses, First dose on Fri07/25/22 at 1830, Last dose on Fri07/30/22 at 1030, Administer over 4 Hours, at 25 mL/hr, FOUR HOUR INFUSION 0258 (New Bag - Provider: Talia Hargrove RN) potassium chloride ER tab 20 mEq 20 mEq, Oral, DAILY, First dose on Fri07/26/22 at 0900, Until Discontinued 0850 (Given - Provider: Ruma Garcia LPN) 1010 (Given - Provider: Ruma Garcia LPN) 0912 (Given - Provider: Marly Jones, RN) sertraline (Zoloft) tab 25 mg 25 mg, Oral, DAILY, First dose on Fri07/25/22 at 1300, Until Discontinued 0849 (Given - Provider: Ruma Garcia LPN) 1011 (Given - Provider: Ruma Garcia LPN) 0913 (Given - Provider: Marly Jones RN) sodium chloride 0.9 % flush/inj 10 mL 10 mL, IV Push, Q8H, First dose on Fri07/26/22 at 2200, Until Discontinued, To each lumen if no medications are ordered. And before and after drawing labs from PICC catheter. 0600 (Given - Provider: Talia Hargrove RN)1400 (Given - Provider: Ruma Garcia LPN - Comment: given)2200 (Given - Provider: Talia Hargrove RN) 0600 (Given - Provider: Talia Hargrove RN)1400 (Given - Provider: Ruma Garcia LPN)2200 (Given - Provider: Wihtley Kennedy RN) 0600 (Given - Provider: Whitley Kennedy RN)1237 (Given - Provider: Marly Jones RN) Spironolactone (Aldactone) tab 12.5 mg 12.5 mg, Oral, MWF, First dose on Fri07/26/22 at 0900, Until Discontinued 912 (Given - Provider: Marly Jones, BIJAL) umeclidinium [place] (INCRUSE ellipta) 62.5 MCG/INH inhaler 1 Puff (CANCELED) 1 Puff, Inhalation, DAILY, First dose on Fri07/26/22 at 0900, Until Discontinued 0900 (Not Given - Provider: Laura Mcintyre, RESIDENT IN DIAGNOSTIC RADIOLOGY - Reason: Other-Notify Provider - Comment: PT REFUSED) 730 (Given - Provider: Christ Cantrell, PHILIPPE) 0756 (Not Given - Provider: Arabella Kuo, PHILIPPE - Reason: Refused-Notify Provider) Zafirlukast (Accolate) tab 20 mg 20 mg, Oral, DAILY, First dose on Fri07/26/22 at 0900, Until Discontinued 0850 (Given - Provider: Ruma Garcia LPN) 1011 (Given - Provider: Ruma Garcia LPN) 0913 (Given - Provider: Marly Jones RN) PRN Medication Order 07/27/2022 07/28/2022 07/29/2022 Acetaminophen (Tylenol) tab 975 mg 975 mg, Oral, Q4H PRN Pain, Mild, Pain, Moderate, Starting on Fri07/25/22 at 1236, Until Fri07/29/22 at 1914, Maximum of 4 grams (4000 mg) per day. 1343 (Given - Provider: Ruma Garcia LPN)2102 (Given - Provider: Whitley Kennedy RN) Albuterol Sulfate (Proventil) (2.5 MG/3ML) 0.083% inhalation solution 2.5 mg 2.5 mg, Nebulizer, Q4H PRN Dyspnea, Starting on Mary Carmen 07/25/22 at 1231, Until Fri07/29/22 at 1914 albuterol-ipratropium (Duoneb) inhalation solution 3 mL 3 mL, Nebulizer, Q4H PRN Dyspnea, Starting on Fri07/28/22 at 1615, Until Fri07/29/22 at 1914, 3 mL = 0.5 mg ipratropium/ 2.5 mg albuterol dextrose 50 % inj 25 mL 25 mL, IV Push, PRN Hypoglycemia, Other, For blood glucose 54 - 69 mg/dL or 70 - 100 mg/dL with symptoms AND patient is unresponsive, NPO, OR unable to swallow, Starting on Fri07/25/22 at 1302, Until Fri07/29/22 at 1914, Administer IV. Recheck blood glucose after 15 minutes. Notify provider. dextrose 50 % inj 50 mL 50 mL, IV Push, PRN Hypoglycemia, Other, For blood glucose below 54 mg/dL AND patient unresponsive, NPO, OR unable to swallow, Starting on Fri07/25/22 at 1302, Until Fri07/29/22 at 1914, Administer IV. Recheck blood glucose in 15 minutes. Notify provider. glucagon (Glucagen) inj 1 mg 1 mg, Intramuscular, PRN Hypoglycemia, Other, If patient is unresponsive, or NPO and has no IV access, Starting on Fri07/25/22 at 1302, Until Fri07/29/22 at 1914, NPO and no IV access with either [...] patient alert WITH difficulty chewing/swallowing, Starting on Fri07/25/22 at 1302, Until Fri07/29/22 at 1914, Administer gel. Recheck blood glucose after 15 minutes. Notify provider. 37.5 gram tube = 15 grams glucose = 1 each Glucose (Glutose 15) 40 % gel 30 g of glucose 30 g of glucose, Oral, PRN Hypoglycemia (low sugar), Other, For blood glucose below 54 mg/dL AND patient alert WITH difficulty chewing/swallowing, Starting on Fri07/25/22 at 1302, Until Fri07/29/22 at 191, Administer gel. Recheck blood glucose after 15 minutes. Notify provider. 37.5 gram tube = 15 grams glucose = 1 each glucose chew tab 16 g 16 g, Oral, PRN Hypoglycemia, Other, For blood glucose 54 - 69 mg/dL or 70 - 100 mg/dL with symptoms and patient alert without difficulty chewing/swallowing., Starting on Fri07/25/22 at 1302, Until Fri07/29/22 at 1914 HYDROmorphone (Dilaudid) inj 0.5 mg 0.5 mg, IV Push, Q4H PRN Pain, Severe, Starting on Fri07/25/22 at 1236, Until Fri07/29/22 at 1914 0357 (Given - Provider: Talia Hargrove RN)0838 (Given - Provider: Marichuy Hyde RN)1306 (Given - Provider: Bernadette Villasenor RN)1951 (Given - Provider: Talia Hargrove RN) 0400 (Given - Provider: Talia Hargrove RN)1055 (Given - Provider: Sheridan Loja RN)1754 (Given - Provider: Sheridan Loja RN)2238 (Given - Provider: Whitley Kennedy RN) 0932 (Given - Provider: Marly Jones RN)1444 (Given - Provider: Marly Jones RN) melatonin tab 3 mg 3 mg, Oral, HS PRN Insomnia, Starting on Mary Carmen 07/25/22 at 1237, Until 07/29/22 at 1914 ondansetron (Zofran) inj 4 mg 4 mg, IV Push, Q6H PRN Nausea, Starting on Mary Carmen 07/25/22 at 1237, Until 07/29/22 at 1914 0357 (Given - Provider: Talia Hargrove RN)1951 (Given - Provider: Talia Hargrove RN) 1753 (Given - Provider: Sheridan Loja RN)2239 (Given - Provider: Whitley Kennedy RN) 0913 (Given - Provider: Marly Jones RN) Polyethylene Glycol 3350 (Miralax) oral powder 17 g 17 g, Oral, BID PRN Constipation, Starting on Mary Carmen 07/25/22 at 1233, Until 07/29/22 at 1914, Mix in 8 oz of water, juice, soda, coffee, or tea. 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
--- OUTSIDE RECORDS SUMMARY | 2023-06-18 02:39 | External Medical Summary ---
Author Name Unknown Address Unknown Organization : Laboratory Report Ordering Provider Test Date Status ZAKI GILLESPIE 07/28/2022 21:23:30 Final Observation Date Value Abnormality Reference (Units ) Status Glucose Point of Care 07/28/2022 21:23:30 150 Above high normal 70-120 (mg/dL) Final Performing Location
--- OUTSIDE RECORDS SUMMARY | 2023-06-18 02:40 | External Medical Summary ---
Author Name Unknown Address Unknown Organization K01:LABORATORY [facility] [place] [facility] [address] [facility] [address] Laboratory Report Ordering Provider Test Date Status TRISTAN MARTINEZ 07/25/2022 13:05:18 Final Observation Date Value Abnormality Reference (Units ) Status Methicillin resistant Staphylococcus aureus (MRSA) DNA [Presence] in Nose by THALIA with probe detection 07/25/2022 13:05:18 Negative Negative Final Performing Location LABORATORY [facility] [place] - [address] [facility] [address]
--- OUTSIDE RECORDS SUMMARY | 2023-06-18 02:40 | External Medical Summary ---
Author Name Unknown Address Unknown Organization : Laboratory Report Ordering Provider Test Date Status BAM SPENCE 07/25/2022 14:57:21 Final Observation Date Value Abnormality Reference (Units ) Status Glucose Point of Care 07/25/2022 14:57:21 100 70-120 (mg/dL) Final Performing Location
--- OUTSIDE RECORDS SUMMARY | 2023-06-18 02:40 | External Medical Summary ---
Author Name Unknown Address Unknown Organization K01:[place] [place] [address] [place] [address] Laboratory Report Ordering Provider Test Date Status VERNAZAKI 07/25/2022 14:25:00 Final Observation Date Value Abnormality Reference (Units) Status Bacteria identified in Unspecified specimen by Culture 07/25/2022 14:25:00 No aerobic or anaerobic growth Final Gram Stain 07/25/2022 14:25:00 Occasional Polymorphonuclear leukocytes Final Gram Stain 07/25/2022 14:25:00 No organisms seen Final Performing Location LABORATORY [facility] - [address] [place] [address]
--- OUTSIDE RECORDS SUMMARY | 2023-06-18 02:40 | External Medical Summary ---
Author Name Unknown Address Unknown Organization : Laboratory Report Ordering Provider Test Date Status BAM SPENCE 07/25/2022 16:26:42 Final Observation Date Value Abnormality Reference (Units ) Status Glucose Point of Care 07/25/2022 16:26:42 105 70-120 (mg/dL) Final Performing Location
--- OUTSIDE RECORDS SUMMARY | 2023-06-18 02:40 | External Medical Summary ---
Author Name Unknown Address Unknown Organization K1F:LABORATORY [place] [address] [place] [address] Laboratory Report Ordering Provider Test Date Status ZAKI GILLESPIE 07/27/2022 08:10:00 Final Observation Date Value Abnormality Reference (Units ) Status WBC, Total 07/27/2022 08:10:00 10.89 Above high normal 4.00-10.80 (K/uL) Final RBC 07/27/2022 08:10:00 3.06 3.85-5.15 (M/uL) Final Hemoglobin 07/27/2022 08:10:00 8.4 Below low normal 12.0-15.3 (g/dL) Final HCT 07/27/2022 08:10:00 27.7 Below low normal 36.0-45.2 (%) Final MCV 07/27/2022 08:10:00 90.5 81.5-97.5 (fL) Final MCH 07/27/2022 08:10:00 27.5 27.0-34.0 (pg) Final MCHC 07/27/2022 08:10:00 30.3 32.0-36.0 (g/dL) Final RDW 07/27/2022 08:10:00 16.8 11.5-15.5 (%) Final Platelets 07/27/2022 08:10:00 413 Above high normal 140-400 (K/uL) Final MPV 07/27/2022 08:10:00 9.0 6.6-11.1 (fL) Final Nucleated erythrocytes/100 leukocytes [Ratio] in Blood by Automated count 07/27/2022 08:10:00 0 <=0 (/100 WBCs) Final Performing Location LABORATORY [facility] - [address] [place] [address]
--- OUTSIDE RECORDS SUMMARY | 2023-06-18 02:40 | External Medical Summary ---
Author Name Unknown Address Unknown Organization K1F:LABORATORY [facility] - [facility] [address] [place] [address] Laboratory Report Ordering Provider Test Date Status TRISTAN MARTINEZ 07/26/2022 04:51:00 Final Observation Date Value Abnormality Reference (Units ) Status WBC, Total 07/26/2022 04:51:00 12.77 Above high normal 4.00-10.80 (K/uL) Final RBC 07/26/2022 04:51:00 3.07 3.85-5.15 (M/uL) Final Hemoglobin 07/26/2022 04:51:00 8.4 Below low normal 12.0-15.3 (g/dL) Final HCT 07/26/2022 04:51:00 27.9 Below low normal 36.0-45.2 (%) Final MCV 07/26/2022 04:51:00 90.9 81.5-97.5 (fL) Final MCH 07/26/2022 04:51:00 27.4 27.0-34.0 (pg) Final MCHC 07/26/2022 04:51:00 30.1 32.0-36.0 (g/dL) Final RDW 07/26/2022 04:51:00 17.0 11.5-15.5 (%) Final Platelets 07/26/2022 04:51:00 418 Above high normal 140-400 (K/uL) Final MPV 07/26/2022 04:51:00 9.1 6.6-11.1 (fL) Final Nucleated erythrocytes/100 leukocytes [Ratio] in Blood by Automated count 07/26/2022 04:51:00 0 <=0 (/100 WBCs) Final Performing Location LABORATORY [facility] - [address] [place] [address]
--- OUTSIDE RECORDS SUMMARY | 2023-06-18 02:40 | External Medical Summary ---
Author Name Unknown Address Unknown Organization K1F:LABORATORY [facility] - [address] [place] [address] Laboratory Report Ordering Provider Test Date Status TRISTAN MARTINEZ 07/25/2022 13:05:17 Final Observation Date Value Abnormality Reference (Units ) Status SARS Coronavirus 2 07/25/2022 13:05:17 Negative N egative Final Performing Location LABORATORY [facility] - [address] [place] [address]
--- OUTSIDE RECORDS SUMMARY | 2023-06-18 02:40 | External Medical Summary ---
Author Name Unknown Address Unknown Organization : Laboratory Report Ordering Provider Test Date Status ZAKI GILLESPIE 07/26/2022 07:43:57 Final Observation Date Value Abnormality Reference (Units ) Status Glucose Point of Care 07/26/2022 07:43:57 115 70-120 (mg/dL) Final Performing Location
--- OUTSIDE RECORDS SUMMARY | 2023-06-18 02:40 | External Medical Summary ---
Author Name Unknown Address Unknown Organization : Laboratory Report Ordering Provider Test Date Status ZAKI GILLESPIE 07/27/2022 21:27:41 Final Observation Date Value Abnormality Reference (Units ) Status Glucose Point of Care 07/27/2022 21:27:41 155 Above high normal 70-120 (mg/dL) Final Performing Location
--- OUTSIDE RECORDS SUMMARY | 2023-06-18 02:40 | External Medical Summary ---
Author Name Unknown Address Unknown Organization : Laboratory Report Ordering Provider Test Date Status ZAKI GILLESPIE 07/27/2022 12:00:58 Final Observation Date Value Abnormality Reference (Units ) Status Glucose Point of Care 07/27/2022 12:00:58 126 Above high normal 70-120 (mg/dL) Final Performing Location
--- OUTSIDE RECORDS SUMMARY | 2023-06-18 02:40 | External Medical Summary ---
Author Name Unknown Address Unknown Organization : Laboratory Report Ordering Provider Test Date Status ZAKI GILLESPIE 07/25/2022 21:14:34 Final Observation Date Value Abnormality Reference (Units ) Status Glucose Point of Care 07/25/2022 21:14:34 140 Above high normal 70-120 (mg/dL) Final Performing Location
--- OUTSIDE RECORDS SUMMARY | 2023-06-18 02:40 | External Medical Summary ---
Author Name Unknown Address Unknown Organization : Laboratory Report Ordering Provider Test Date Status ZAKI GILLESPIE 07/26/2022 16:57:51 Final Observation Date Value Abnormality Reference (Units ) Status Glucose Point of Care 07/26/2022 16:57:51 137 Above high normal 70-120 (mg/dL) Final Performing Location
--- OUTSIDE RECORDS SUMMARY | 2023-06-18 02:40 | External Medical Summary ---
Author Name Unknown Address Unknown Organization : Laboratory Report Ordering Provider Test Date Status ZAKI GILLESPIE 07/26/2022 11:29:55 Final Observation Date Value Abnormality Reference (Units ) Status Glucose Point of Care 07/26/2022 11:29:55 122 Above high normal 70-120 (mg/dL) Final Performing Location
--- OUTSIDE RECORDS SUMMARY | 2023-06-18 02:40 | External Medical Summary ---
Author Name Unknown Address Unknown Organization K1F:LABORATORY [facility] - [address] [place] [address] Laboratory Report Ordering Provider Test Date Status ZAKI GILLESPIE 07/28/2022 04:56:00 Final Observation Date Value Abnormality Reference (Units ) Status BUN 07/28/2022 04:56:00 9 6-20 (mg/dL) Final Creatinine 07/28/2022 04:56:00 0.9 0.5-1.0 (mg/dL) Final Glomerular filtration rate/1.73 sq M.predicted [Volume Rate/Area] in Serum, Plasma or Blood by Creatinine-based formula (CKD-EPI) 07/28/2022 04:56:00 65 >=60 (mL/min) Final Performing Location LABORATORY [facility] - [address] [place] [address]
--- OUTSIDE RECORDS SUMMARY | 2023-06-18 02:40 | External Medical Summary ---
Author Name Unknown Address Unknown Organization K1F:LABORATORY [facility] - [address] [place] [address] Laboratory Report Ordering Provider Test Date Status RADHA MARTINEZDE 07/25/2022 12:44:00 Final Observation Date Value Abnormality Reference (Units ) Status PT 07/25/2022 12:44:00 14.2 11.6-15.2 (seconds) Final INR 07/25/2022 12:44:00 1.1 0.8-1.2 Final Performing Location LABORATORY [facility] - [address] [place] [address]
--- OUTSIDE RECORDS SUMMARY | 2023-06-18 02:40 | External Medical Summary | Summary of Care ---
Author Name Unknown Organization [place] [address] Care Team Providers Care Twister Operator Name Role Phone Marcela Pinto MD Primary Care Provider + Encounter Details Date Type Department Care Team Description 07/25/2022 Scan Encounter General Internal Medicine [facility] [address] [place] [address] Marcela Pinto MD [address] [facility] [place] [address] <No scans attached> Allergies Active Allergy Reactions Severity Noted Date Comments Valsartan 07/10/2010 Enalapril 05/21/2006 Escitalopram Oxalate Nausea/vomiting 10/11/2009 Nauseated Iodinated Diagnostic Agents Nausea/vomiting 05/2010 IV Contrast Iodine Hives 12/18/2009 IV Contrast Metoprolol Tartrate 11/18/2006 Made pulse low [place] Oil-Black Currant-Vit E 07/10/2010 Verapamil 03/21/2004 Bupropion Hcl 10/30/2009 Makes pt sick in the stomach documented as of this encounter (statuses as of 07/26/2022) Medications Medication Sig Dispensed Refills Start Date End Date Status VITAMIN D 1000 UNITS PO TABS one tablet daily 0 2 Suspended LUMIGAN 0.01 % OP SOLN INSTILL 1 DROP BY TOPICAL ROUTE EVERY BEDTIME 4 5 Suspended AZOPT 1 % OP SUSP INSTILL 1 DROP BY OPHTHALMIC ROUTE 2 TIMES EVERY DAY INTO BOTH EYES 4 5 Suspended Probiotic Product (PROBIOTIC DAILY) Capsule Take 1 Cap by mouth daily. 0 5 Suspended oxygen GAS Use 4 L/min(Oxygen) as directed. Uses 2 LPM during the day and 4 LPM at night 0 Suspended Multiple Vitamins-Minerals (ONE DAILY MULTIVITAMIN WOMEN) TABS one pill each day 0 7 Suspended [facility] SENNA 8.6 MG Tablet TAKE 2 TABLETS BY MOUTH EVERY EVENING FOR 10 DAYS NEEDED FOR CONSTIPATION 0 8 Suspended docusate sodium (COLACE) 100 MG Capsule Take 1 Cap by mouth daily. 90 Cap 0 9 Suspended Additional Information albuterol sulfate (PROVENTIL) (2.5 MG/3ML) 0.083% nebulizer solutionIndications :Asthma with severity to be determined,COPD, moderate ([facility]) USE ONE NEBULIZER TREATMENT TWICE A DAY DIRECTED FOR WORSENING ASTHMA. J45.909, J44.9 225 mL 1 9 Suspended Additional Information Albuterol Sulfate (VENTOLIN HFA) 108 (90 Base) MCG/ACT AERS Inhale 2 Puffs by mouth 2 times a day. 0 0 Suspended Lancets MISCIndications:Typ e 2 diabetes mellitus with hemoglobin A1c goal of less than 7.0% ([facility]) Use as directed. USE TO TEST BLOOD SUGAR 3 TIMES A DAY FOR DIAGNOSIS CODE OF E11.9 300 Each 1 0 Suspended Additional Information CareSens N Voice System Device Use as directed. Tests three times daily/E11.9 0 Suspended CareSens N Glucose Test In Vitro Strip (Glucose Blood) Test as directed. Tests three times daily 0 Suspended Aspirin 81 MG Oral Tablet Delayed Release Take 81 mg by mouth daily. 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 135 Tablet 3 1 Suspended Additional Information Spiriva Respimat 1.25 MCG/ACT Inhalation Aerosol Solution (Tiotropium [place] Monohydrate) Inhale by mouth 2 Puffs daily . 0 Suspended Lisinopril 2.5 MG Oral Tablet (Prinivil)Indicatio ns:Paroxysmal atrial fibrillation (HCC),Chronic systolic heart failure (HCC) Take by mouth 1 Tablet in the morning. 90 Tablet 3 2 Suspended Additional Information Ketoconazole 2 % External Cream APPLY TO GROIN AREA TWICE A DAY 60 g 11 2 Suspended Additional Information Patient not taking. Reported on 07/15/2022 Spironolactone 25 MG Oral Tablet (Aldactone) Take by mouth 0.5 Tablets once a day on Friday, Friday, and Friday only . 45 Tablet 3 2 Suspended Additional Information Atorvastatin Calcium 40 MG Oral Tablet (Lipitor) Take by mouth 1 Tablet in the morning. 100 Tablet 3 2 Suspended Additional Information Ipratropium-Albuter ol 20-100 MCG/ACT Inhalation Aerosol Solution (Combivent Respimat)Indication s:Asthma with severity to be determined,COPD, moderate (HCC) TAKE 1 PUFF BY MOUTH 4 TIMES A DAY 12 g 1 2 Suspended Additional Information Glimepiride 2 MG Oral Tablet (Amaryl) TAKE 1 TABLET BY MOUTH EVERY DAY WITH BREAKFAST 90 Tablet 1 2 Suspended Additional Information Pumodoio In Vitro Strip (Glucose Blood) Checks blood sugar 3 times a day. E11.9 DX 100 Strip 5 2 Suspended Additional Information Dicyclomine HCl 20 MG Oral Tablet (Bentyl)Indications :Chronic constipation TAKE 1 TABLET BY MOUTH EVERY DAY 90 Tablet 2 2 Suspended Additional Information Ferrous Sulfate 325 (65 Fe) MG Oral Tablet (Feosol) Take by mouth 1 Tablet in the morning. 0 2 Suspended Zafirlukast 20 MG Oral Tablet (Accolate)Indicatio ns:Asthma with severity to be determined TAKE 1 TABLET BY MOUTH EVERY DAY 90 Tablet 3 2 Suspended Additional Information Promethazine HCl 25 MG Oral Tablet (Phenergan)Indicati ons:Generalized osteoarthritis TAKE 1 TABLET BY MOUTH EVERY 6 HOURS NEEDED FOR NAUSEA 60 Tablet 2 2 Suspended Additional Information HYDROcodone-Acetami nophen 5-325 MG Oral TabletIndications:G eneralized osteoarthritis Take by mouth 1 Tablet every 6 hours as needed for Pain, Mild. 120 Tablet 0 2 Suspended Additional Information Sertraline HCl 25 [...] 60 Tablet 5 2 Suspended Additional Information Furosemide 40 MG Oral Tablet (Lasix) Take by mouth 1 Tablet in the morning AND 1 Tablet before bedtime. 60 Tablet 6 2 Suspended Additional Information Polyethylene Glycol 3350 17 GM Oral Packet (Miralax) Take by mouth 17 g 2 times a day as needed for Constipation. 0 Suspended methIMAzole 5 MG Oral Tablet (Tapazole) Take by mouth 5 mg in the morning. 0 Suspended documented as of this encounter (statuses as of 07/26/2022) Active Problems Problem Noted Date Diverticulitis of [...] as of this encounter (statuses as of 07/26/2022) Resolved Problems Problem Noted Date Resolved Date [...] Hypoxemia 10/08/2011 10/30/2015 Genetic Sleep Disorder Research Other*[id number] 07/25/2011 05/15/2016 COPD, moderate 07/19/2011 07/28/2019 Overview: [...] as of this encounter (statuses as of 07/26/2022) Immunizations Name Administration Dates Next Due COVID-19 [...] Telemedicine Hematology Oncology Ida Cueva CRNP [address] [place] [address] 09/12/2022 Office Visit General Surgery Dionte Snyder MD [address] [facility], [place] [address] 10/08/2022 Office Visit Orthopedics Eliezer Gifford, DO [address] [place] [address] 10/10/2022 Office Visit Internal Medicine Marcela Pinto MD [address] [place] [address] 01/03/2023 Office Visit Cardiology Hammad Lopez, DO [address] [place] [address] Health Maintenance Due Date Last Done Comments [...] Additional history exists GFR - Renal Function 01/24/2023 07/26/2022, 07/25/2022, 07/15/2022, Additional history exists Alb / Creat Ratio 02/19/2023 02/19/2022, , 07/27/2018, Additional history exists CKD PHOS USE SMARTSET 06030 02/19/202302/10, 03/09/2021, 03/22/2019 DIABETES-EYE EXAM 03/08/2023 03/08/2022, , 08/07/2020, Additional history exists O2 ASSESSMENT COMPLETED IN PAST YEAR FOR COPD 07/25/2023 07/26/2022 CKD HGB USE SMARTSET 53070 07/26/202307/26, 07/25/2022, 07/11/2022, Additional history exists DXA Scan 08/08/2025 08/08/2020, [...] Documents on File Type Date Recorded Patient Shank Turner Expl anation Advanced 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 Inactivated Comments Full Code 07/25/2022 12:40 PM This ord er reflects the patients wishes and were consensually agreed upon. Discussion of Advance Directives occurred with: Patient Full Code 06/06/2022 12:31 PM 06/10/2022 4:44 PM Discussion of Advance Directives occurred with: Not Discussed Care Teams Twister Operator Relationship Specialty Start Date End Date Marcela Pinto MD [address] [facility] [place] [address] PCP - General Internal Medicine 08/04/14 documented as of this encounter
--- OUTSIDE RECORDS SUMMARY | 2023-06-18 02:40 | External Medical Summary ---
Author Name Unknown Address Unknown Organization : Laboratory Report Ordering Provider Test Date Status ZAKI GILLESPIE 07/27/2022 07:19:57 Final Observation Date Value Abnormality Reference (Units ) Status Glucose Point of Care 07/27/2022 07:19:57 114 70-120 (mg/dL) Final Performing Location
--- OUTSIDE RECORDS SUMMARY | 2023-06-18 02:40 | External Medical Summary ---
Author Name Unknown Address Unknown Organization K1F:LABORATORY [facility] - [facility] [address] [place] [address] Laboratory Report Ordering Provider Test Date Status ZAKI GILLESPIE 07/28/2022 04:56:00 Final Observation Date Value Abnormality Reference (Units ) Status WBC, Total 07/28/2022 04:56:00 9.82 4.00-10.80 (K/uL) Final RBC 07/28/2022 04:56:00 3.14 3.85-5.15 (M/uL) Final Hemoglobin 07/28/2022 04:56:00 8.6 Below low normal 12.0-15.3 (g/dL) Final HCT 07/28/2022 04:56:00 28.3 Below low normal 36.0-45.2 (%) Final MCV 07/28/2022 04:56:00 90.1 81.5-97.5 (fL) Final MCH 07/28/2022 04:56:00 27.4 27.0-34.0 (pg) Final MCHC 07/28/2022 04:56:00 30.4 32.0-36.0 (g/dL) Final RDW 07/28/2022 04:56:00 16.7 11.5-15.5 (%) Final Platelets 07/28/2022 04:56:00 398 140-400 (K/uL) Final MPV 07/28/2022 04:56:00 9.3 6.6-11.1 (fL) Final Nucleated erythrocytes/100 leukocytes [Ratio] in Blood by Automated count 07/28/2022 04:56:00 0 <=0 (/100 WBCs) Final Performing Location LABORATORY [facility] - [address] [place] [id number]
--- OUTSIDE RECORDS SUMMARY | 2023-06-18 02:40 | External Medical Summary ---
Author Name Unknown Address Unknown Organization K1F:LABORATORY [facility] - [address] [place] [address] Laboratory Report Ordering Provider Test Date Status TRISTAN MARTINEZ 07/25/2022 12:43:00 Final Observation Date Value Abnormality Reference (Units ) Status WBC, Total 07/25/2022 12:43:00 11.87 Above high normal 4.00-10.80 (K/uL) Final RBC 07/25/2022 12:43:00 3.33 3.85-5.15 (M/uL) Final Hemoglobin 07/25/2022 12:43:00 9.3 Below low normal 12.0-15.3 (g/dL) Final HCT 07/25/2022 12:43:00 29.7 Below low normal 36.0-45.2 (%) Final MCV 07/25/2022 12:43:00 89.2 81.5-97.5 (fL) Final MCH 07/25/2022 12:43:00 27.9 27.0-34.0 (pg) Final MCHC 07/25/2022 12:43:00 31.3 32.0-36.0 (g/dL) Final RDW 07/25/2022 12:43:00 16.8 11.5-15.5 (%) Final Platelets 07/25/2022 12:43:00 462 Above high normal 140-400 (K/uL) Final MPV 07/25/2022 12:43:00 8.8 6.6-11.1 (fL) Final Nucleated erythrocytes/100 leukocytes [Ratio] in Blood by Automated count 07/25/2022 12:43:00 0 <=0 (/100 WBCs) Final Performing Location LABORATORY [facility] - [address] [place] [address]
--- OUTSIDE RECORDS SUMMARY | 2023-06-18 02:40 | External Medical Summary ---
Author Name Unknown Address Unknown Organization K1F:LABORATORY [facility] - [address] [place] [address] Laboratory Report Ordering Provider Test Date Status ZAKI GILLESPIE 07/27/2022 08:10:00 Final Observation Date Value Abnormality Reference (Units ) Status BUN 07/27/2022 08:10:00 9 6-20 (mg/dL) Final Creatinine 07/27/2022 08:10:00 0.9 0.5-1.0 (mg/dL) Final Glomerular filtration rate/1.73 sq M.predicted [Volume Rate/Area] in Serum, Plasma or Blood by Creatinine-based formula (CKD-EPI) 07/27/2022 08:10:00 66 >=60 (mL/min) Final Performing Location LABORATORY [facility] - [address] [place] [address]
--- OUTSIDE RECORDS SUMMARY | 2023-06-18 02:40 | External Medical Summary ---
Author Name Unknown Address Unknown Organization : Laboratory Report Ordering Provider Test Date Status ZAKI GILLESPIE 07/27/2022 16:36:12 Final Observation Date Value Abnormality Reference (Units ) Status Glucose Point of Care 07/27/2022 16:36:12 128 Above high normal 70-120 (mg/dL) Final Performing Location
--- OUTSIDE RECORDS SUMMARY | 2023-06-18 02:40 | External Medical Summary ---
Author Name Unknown Address Unknown Organization : Laboratory Report Ordering Provider Test Date Status ZAKI GILLESPIE 07/26/2022 21:21:34 Final Observation Date Value Abnormality Reference (Units ) Status Glucose Point of Care 07/26/2022 21:21:34 156 Above high normal 70-120 (mg/dL) Final Performing Location
--- OUTSIDE RECORDS SUMMARY | 2023-06-18 02:40 | External Medical Summary ---
Author Name Unknown Address Unknown Organization K1F:LABORATORY [facility] - [address] [place] [address] Laboratory Report Ordering Provider Test Date Status TRISTAN MARTINEZ 07/25/2022 12:43:00 Final Observation Date Value Abnormality Reference (Units ) Status BUN 07/25/2022 12:43:00 8 6-20 (mg/dL) Final Creatinine 07/25/2022 12:43:00 0.8 0.5-1.0 (mg/dL) Final Glomerular filtration rate/1.73 sq M.predicted [Volume Rate/Area] in Serum, Plasma or Blood by Creatinine-based formula (CKD-EPI) 07/25/2022 12:43:00 71 >=60 (mL/min) Final Performing Location LABORATORY [facility] - [address] [place] [address]
--- OUTSIDE RECORDS SUMMARY | 2023-06-18 02:40 | External Medical Summary ---
Author Name Unknown Address Unknown Organization K1F:LABORATORY [facility] - [address] [place] [address] Laboratory Report Ordering Provider Test Date Status TRISTAN MARTINEZ 07/26/2022 04:51:00 Final Observation Date Value Abnormality Reference (Units ) Status BUN 07/26/2022 04:51:00 9 6-20 (mg/dL) Final Creatinine 07/26/2022 04:51:00 0.9 0.5-1.0 (mg/dL) Final Glomerular filtration rate/1.73 sq M.predicted [Volume Rate/Area] in Serum, Plasma or Blood by Creatinine-based formula (CKD-EPI) 07/26/2022 04:51:00 66 >=60 (mL/min) Final Performing Location LABORATORY [facility] - [address] [place] [address]
--- OUTSIDE RECORDS SUMMARY | 2023-06-18 02:41 | External Medical Summary | Summary of Care ---
Author Name Unknown Organization [place] [address] Care Team Providers Care Outcomes Specialist Name Role Phone Marcela Pinto MD Primary Care Provider + Encounter Details Date Type Department Care Team Description 07/17/2022 Scan Encounter General Internal Medicine [facility] [address] [place] [address] Marcela Pinto MD [address] [place] [address] <No scans attached> Allergies Active Allergy Reactions Severity Noted Date Comments Valsartan 07/10/2010 Enalapril 05/21/2006 Escitalopram Oxalate Nausea/vomiting 10/11/2009 Nauseated Iodinated Diagnostic Agents Nausea/vomiting 05/2010 IV Contrast Iodine Hives 12/18/2009 IV Contrast Metoprolol Tartrate 11/18/2006 Made pulse low Oxford Oil-Black Currant-Vit E 07/10/2010 Verapamil 03/21/2004 Bupropion Hcl 10/30/2009 Makes pt sick in the stomach documented as of this encounter (statuses as of 07/18/2022) Medications Medication Sig Dispensed Refills Start Date [...] and 4 LPM at night 0 Active polyethylene glycol 3350 (MIRALAX) 255 gram powder Take 17 g by mouth 2 times a day. One cap full in juice, to effect 1 stool per day. . 2 Bottle 3 10/01/2016 Active Multiple Vitamins-Minerals (ONE DAILY MULTIVITAMIN WOMEN) [...] Asthma with severity to be determined,COPD, moderate ([facility]) USE ONE NEBULIZER TREATMENT TWICE A DAY DIRECTED FOR WORSENING ASTHMA. J45.909, J44.9 225 mL 1 06/29/2019 Active Albuterol Sulfate (VENTOLIN HFA) 108 (90 Base) MCG/ACT AERS Inhale 2 Puffs by mouth 2 times a day. 0 12/27/2019 Active Lancets MISCIndications:Type 2 diabetes mellitus with hemoglobin A1c goal of less than 7.0% ([facility]) Use as directed. USE TO TEST BLOOD SUGAR 3 TIMES A DAY FOR DIAGNOSIS CODE OF E11.9 300 Each 1 01/05/2020 Active CareSens N Voice System Device Use as directed. Tests three times daily/E11.9 0 Active CareSens N Glucose Test In Vitro Strip (Glucose Blood) Test as directed. Tests three times daily 0 Active Aspirin 81 MG Oral Tablet [...] Respimat 1.25 MCG/ACT Inhalation Aerosol Solution (Tiotropium [place] Monohydrate) Inhale by mouth 2 Puffs daily . 0 Active Lisinopril 2.5 MG Oral Tablet (Prinivil)Indication s:Paroxysmal atrial fibrillation (HCC),Chronic systolic heart failure (HCC) Take by mouth 1 Tablet in the morning. 90 Tablet 3 11/12/2021 Active Ketoconazole 2 % External Cream APPLY TO GROIN AREA TWICE A DAY 60 g 11 12/26/2021 Active Additional Information Patient not taking. Reported on 07/15/2022 Spironolactone 25 MG Oral Tablet (Aldactone) Take by mouth 0.5 Tablets once a day on Friday, Friday, and Friday only . 45 Tablet 3 12/28/2021 Active Atorvastatin Calcium 40 MG Oral Tablet (Lipitor) Take by mouth 1 Tablet in the morning. 100 Tablet 3 12/27/2021 Active methIMAzole 10 MG Oral Tablet (Tapazole)Indication s:Hyperthyroidism TAKE 1 TABLET BY MOUTH EVERY DAY 90 Tablet 1 01/10/2022 Active Additional Information Patient taking differently: 5 mg Oral DAILY, Reported on 06/25/2022 Ipratropium-Albutero l 20-100 MCG/ACT Inhalation Aerosol Solution (Combivent Respimat)Indications :Asthma with severity to be determined,COPD, moderate (HCC) TAKE 1 PUFF BY MOUTH 4 TIMES A DAY 12 g 1 01/31/2022 Active Glimepiride 2 MG Oral Tablet (Amaryl) TAKE 1 TABLET BY MOUTH EVERY DAY WITH BREAKFAST 90 Tablet 1 02/07/2022 Active OneTouch Verio In Vitro Strip (Glucose Blood) Checks blood sugar 3 times a day. E11.9 DX 100 Strip 5 03/18/2022 Active Dicyclomine HCl 20 MG Oral Tablet [...] as of this encounter (statuses as of 07/18/2022) Active Problems Problem Noted Date Ischemic colitis 06/27/2022 Asthma, mild persistent 06/27/2022 [...] as of this encounter (statuses as of 07/18/2022) Resolved Problems Problem Noted Date Resolved Date [...] Hypoxemia 10/08/2011 10/30/2015 Genetic Sleep Disorder Research Other*[id number] 07/25/2011 05/15/2016 COPD, moderate 07/19/2011 07/28/2019 Overview: [...] as of this encounter (statuses as of 07/18/2022) Immunizations Name Administration Dates Next Due COVID-19 mRNA, LNP-s, No Pre serve, 2-Dose Series (Senor Sirloin) 08/21/2021,12/22/2020,2020 COVID-19, LNP-s, No Preserve , Tyler-sucrose, [...] (15 years old or older) Yes 06/06/20 Cognitive Status Response Date of Assessm ent Because of a physical, menta l, or emotional condition, do you have serious difficulty concentrating, remembering, or making decisions? (5 years old or older No 06/06/2022 documented as of this encounter Plan of Treatment Upcoming Encounters Date Type Specialty Care Team Description 08/05/2022 Telemedicine Hematology Oncology Ida Cueva CRNP [address] [place] [address] 09/12/2022 Office Visit General Surgery Dionte Snyder MD [address] [facility] [place] [address] 10/08/2022 Office Visit Orthopedics Eliezer Gifford, DO [address] [place] [address] 10/10/2022 Office Visit Internal Medicine Marcela Pinto MD [address] [facility] [place] [address] 01/03/2023 Office Visit Cardiology Hammad Lopez, DO [address] [place] [address] Health Maintenance Due Date Last Done Comments [...] Additional history exists GFR - Renal Function 01/13/2023 07/15/2022, 07/11/2022, 06/27/2022, Additional history exists Alb / Creat Ratio 02/19/2023 02/19/2022, , 07/27/2018, Additional history exists CKD PHOS USE SMARTSET 24963 02/19/202302/10, 03/09/2021, 03/22/2019 DIABETES-EYE EXAM 03/08/2023 03/08/2022, , 08/07/2020, Additional history exists CKD HGB USE SMARTSET 82814 07/11/202307/11, 07/11/2022, 06/21/2022, Additional history exists O2 ASSESSMENT COMPLETED IN PAST YEAR FOR COPD 07/11/2023 07/11/2022 DXA Scan 08/08/2025 08/08/2020, 04/13, 06/19/2010, Additional [...] Documents on File Type Date Recorded Patient [employer] Expl anation Advanced 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 Directive Advanced Directive Advanced Directive Advanced Directive 06/06/2022 2:05 PM Latest Code Status on File Code Status Date Activated Date Inactivated Comments Full Code 06/06/2022 12:31 PM 06/10/2022 4:44 PM Discussion of Advance Directives occurred with: Not Discussed Care Teams Outcomes Specialist Relationship Specialty Start Date End Date Pinto, Marcela Jose Maria, MD [address] [place] [address] PCP - General Internal Medicine 08/04/14 documented as of this encounter
--- OUTSIDE RECORDS SUMMARY | 2023-06-18 02:41 | External Medical Summary | Summary of Care ---
Author Name Unknown Organization [place] [address] Care Team Providers Care Talent Sourcing Specialist Name Role Phone Marcela Pinto MD Primary Care Provider + Reason for Visit * Reason Comments NEW PATIENT * Evaluate & Treat - Unlimited Visits (Within 30 days (routine)) - Authorized Specialty Diagnoses / Procedures Referred By Miguel Angel roe Referred To Contact Hematology/Oncology / Hematology Oncology Diagnoses Anemia, unspecified type Thrombocytosis Leukocytosis, unspecified type David Duke PA-C [address] [facility] [place] [address] Referral ID Status Reason Start Date Expiration Date Visits Requested Visits Authorized [id number] Authorized Specialty Services Required 05/14/[phone] Encounter Details Date Type Department Care Team Description 07/11/2022 Office Visit Hematology/Oncology [facility] [place] [address] [facility] [place] [place] [address] Ida Cueva CRNP [address] [place] [address] [place] [id number] Iron deficiency anemia due to chronic blood loss*; Thrombocytosis; Diverticulitis of colon; Chronic kidney disease, stage 3a (HCC); Encounter for long-term (current) use of medications Allergies Active Allergy Reactions Severity Noted Date Comments Valsartan 07/10/2010 Enalapril 05/21/2006 Escitalopram Oxalate Nausea/vomiting 10/11/2009 Nauseated Iodinated Diagnostic Agents Nausea/vomiting 05/2010 IV Contrast Iodine Hives 12/18/2009 IV Contrast Metoprolol Tartrate 11/18/2006 Made pulse low [place] Oil-Black Currant-Vit E 07/10/2010 Verapamil 03/21/2004 Bupropion Hcl 10/30/2009 Makes pt sick in the stomach documented as of this encounter (statuses as of 07/20/2022) Medications Medication Sig Dispensed Refills Start Date [...] be determined,COPD, moderate ([facility]) USE ONE NEBULIZER TREATMENT TWICE A DAY DIRECTED FOR WORSENING ASTHMA. J45.909, J44.9 225 mL 1 06/29/2019 Active Albuterol Sulfate (VENTOLIN HFA) 108 (90 Base) MCG/ACT AERS Inhale 2 Puffs by mouth 2 times a day. 0 12/27/2019 Active Lancets MISCIndications:Type 2 diabetes mellitus with hemoglobin A1c goal of less than 7.0% ([facility]) Use as directed. USE TO TEST [...] Respimat 1.25 MCG/ACT Inhalation Aerosol Solution (Tiotropium [place] Monohydrate) Inhale by mouth 2 Puffs daily [...] WITH BREAKFAST 90 Tablet 1 02/07/2022 Active EdithPrimitivo Amandamichelle In Vitro Strip (Glucose Blood) Checks blood [...] as of this encounter (statuses as of 07/20/2022) Active Problems Problem Noted Date Ischemic colitis [...] as of this encounter (statuses as of 07/20/2022) Resolved Problems Problem Noted Date Resolved Date [...] Hypoxemia 10/08/2011 10/30/2015 Genetic Sleep Disorder Research Other*[id number] 07/25/2011 05/15/2016 COPD, moderate 07/19/2011 07/28/2019 Overview: [...] as of this encounter (statuses as of 07/20/2022) Immunizations Name Administration Dates Next Due COVID-19 mRNA, LNP-s, No Pre serve, 2-Dose Series ([employer]) 08/21/2021,12/22/2020,2020 COVID-19, LNP-s, No Preserve , Tyler-sucrose, [...] Sign Reading Time Taken Comments Blood Pressure 130/58 07/11/2022 12:53 PM EDT Pulse 79 07/11/2022 12:53 PM EDT Temperature 36.7 C (98 F) 07/11/2022 12:53 PM EDT Respiratory Rate 18 07/11/2022 12:53 PM EDT Oxygen Saturation 100% 07/11/2022 12:53 PM EDT on 2L o2 Inhaled Oxygen Concentration - - Weight - [...] No 06/06/2022 documented as of this encounter Progress Notes * NIECY Beverly - 07/11/2022 1:13 PM EDT Hematology/Oncology Outpatient Clinic note [facility] [place] [address] Name: Nina Harrington Date: 07/11/2022 REFERRED BY: David Duke PA-C CHIEF COMPLAINT: Nina Harrington is a 81 year old female here today for new consultation for anemia and thrombocytosis. HISTORY OF PRESENT ILLNESS: Component Latest Ref [...] Most recently hospitalized at the end of May. Chart review reveals that since 2017 baseline Hgb has been in the 10-11 range. Over thelast year this has dropped into the 9-10 range. Also noted is intermittent thrombocytosis since 2019, platelet count in 400K range. Has been taking ferrous sulfate 1 tab daily for the last year, and is now taking with vitamin c. HOSPITAL COURSE 8/25/22 - 06/10/22 (focused): Nina Harrington was admitted on 06/06/2022 as a transfer from [facility] with complicated diverticulitis. she was treated with non-operative management. she did well. she had adequate pain control with oral pain medications, had return of bowel function, was started on a clear liquiddiet at [facility] and advanced to a low fiber diet during this admission. she was voiding without difficulty, ambulating, and was tolerating her diet. she was stable for discharge home on 06/10/2022. Patient presents with daughter Stephani today. Patient [...] of her diverticulitis. Follows with endocrinology in [place] for hyperthyroidism and is treated with methimazole. Takes omeprazole twice a day as well. Was feeling weak right after discharge from [facility] in May but is starting to feelimproved. [...] colon cancer and is currently being treated. Patient's past medical history, social history, and family history were reviewed and updated. Past Medical History: Diagnosis Date ACEI/ARB contraindicated Asthma Carpal tunnel syndrome DM type 2, goal: symptom mgmt (HCC) Generalized osteoarthritis HTN, goal below 140/90 Mixed dyslipidemia Past Surgical History: Procedure Laterality Date APPENDECTOMY W/OTHER PROCEDURE 1960 when removed gall bladder COLONOSCOPY, DIAGNOSTIC (RECTUM) [facility], [facility] (RECTUM) 06/05/2017 diverticulosis, repeat [...] EGD, FLEXIBLE, DIAGNOSTIC 05/29/2016 [facility], [facility]ST[facility] 05/08/2020 normal / [...] GALLBLADDER 1960 SIGMOIDOSCOPY, DIAGNOSTIC 04/29/2014 stool in rectum/[facility] SMALL BOWEL ENDOSCOPY, REMOVE FOREIGN BODY mesh from prior hernia surgery, wrapped around small bowel. small bowel surgery Family History Problem Relation Age of Onset Breast Cancer Mother Heart disease Father No Known Problems Sister COPD Brother COPD Brother COPD Brother Diabetes Aunt (Unspecified) Other (JORDAN) Son not diagnosed Lung Disorder Grandfather (Paternal) ?COPD vs asthma Asthma Daughter 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 Tobacco Use Smoking status: Never Smoker Smokeless tobacco: Never Used Vaping Use Vaping Use: Never used Substance and Sexual Activity Alcohol use: No Drug use: No Review of patient's allergies indicates: Allergen Reactions Diovan [Valsartan] Enalapril Escitalopram Oxalate Nausea/vomiting Nauseated Iodinated Diagnostic Agents Nausea/vomiting IV Contrast Iodine Hives IV Contrast Metoprolol Tartrate Made pulse low [place] Oil-Black Currant-Vit E Verapamil Wellbutrin [Bupropion Hcl] [...] the day and 4 LPM at night polyethylene glycol 3350 (MIRALAX) 255 gram powder Take 17 g by mouth 2 times a day. One cap full in juice, to effect 1 stool per day. . 2 Bottle 3 Multiple Vitamins-Minerals (ONE DAILY MULTIVITAMIN WOMEN) TABS [...] Puffs by mouth 2 times a day. Lancets MISC Use as directed. USE TO TEST BLOOD SUGAR 3 TIMES A DAY FOR DIAGNOSIS CODE OF E11.9300 Each 1 CareSens N Voice System Device Use as directed. Tests three times daily/E11.9 CareSens N Glucose Test In Vitro Strip (Glucose Blood) Test as directed. Tests three times daily Aspirin 81 MG Oral Tablet Delayed Release [...] Respimat 1.25 MCG/ACT Inhalation Aerosol Solution (Tiotropium [place] Monohydrate) Inhale by mouth 2 Puffs daily . Lisinopril 2.5 MG Oral Tablet (Prinivil) Take by mouth 1 Tablet in the morning. 90 Tablet 3 Ketoconazole 2 % External Cream APPLY TO GROIN AREA TWICE A DAY 60 g 11 Spironolactone 25 MG Oral Tablet (Aldactone) Take by mouth 0.5 Tablets once a day on Friday, Friday, and Friday only . 45 Tablet 3 Atorvastatin Calcium 40 MG Oral Tablet (Lipitor) Take by mouth 1 Tablet in the morning. 100 Tablet 3 methIMAzole 10 MG Oral Tablet (Tapazole) TAKE 1 TABLET BY MOUTH EVERY DAY (Patient taking differently: Take by mouth 5 mg daily . ) 90 Tablet 1 Ipratropium-Albuterol 20-100 MCG/ACT Inhalation Aerosol Solution (Combivent Respimat) TAKE 1 PUFF BY MOUTH 4 TIMES A DAY 12 g 1 Glimepiride 2 MG Oral Tablet (Amaryl) TAKE 1 TABLET BY MOUTH EVERY DAY WITH BREAKFAST 90 Tablet1 OneTouch Verio In Vitro Strip (Glucose Blood) Checks blood sugar 3 times a day. E11.9 DX 100 Strip 5 Dicyclomine HCl 20 MG Oral Tablet (Bentyl) [...] 1 Tablet before bedtime. 60 Tablet 6 No current facility-administered medications for this visit. REVIEW OF SYSTEMS: SEE HPI - otherwise negative OBJECTIVE: Filed Vitals: 07/11/22 1253 BP: 130/58 Pulse: 79 Resp: 18 Temp: 36.7 C (98 F) TempSrc: Tympanic SpO2: 100% Wt Readings from Last 5 Encounters: 06/25/22 103.8 kg (228 lb 12.8 oz) 06/06/22 101.3 kg (223 lb 4.8 oz) 05/13/22 104.7 kg (230 lb 14.4 oz) 02/19/22 111.1 kg (244 lb 14.4 oz) 12/27/21 114.3 kg (251 lb 14.4 oz) PHYSICAL EXAM: Constitutional: no acute distress Neuro: alert, oriented to person, place, and time, gait normal HEENT: normal: normocephalic, atraumatic; neck with no masses or tenderness; no cervical/supraclavicular lymphadenopathy CV: normal rate and rhythm, no murmur Chest: normal respiratory effort, lungs clear and diminished to auscultation, chronic O2 per NC 2L Abdomen: soft, bowel sounds normal Extremities: trace edema bilateral ankles Skin: warm and dry, pale LABS: SEE HPI IMPRESSION: Anemia and Thrombocytosis - Patient with PMH including heart failure, Afib with Watchman,asthmaand COPDon 2L NC daytime and 4L NC night, DM II on oral antihyperglycemics, HTN, hyperthyroidism on methimazole. Has also been suffering with repeated bought's of diverticulitis and a colovesical fistula. Most recently hospitalized at the end of May and [facility]. Chart review reveals that since 2018baseline Hgb has been in the 10-11 range. Over the last year this has dropped into the 9-10 range. Also noted is intermittent thrombocytosis since 2019, platelet count in 400K range. Has been taking ferrous sulfate 1 tab daily for the last year, and is now taking with vitamin c. PLAN: Believe this is most likely an anemia of chronic disease/anemia of inflammation and a reactive thrombocytosis related to patient chronic health conditions, specially diverticulitis and colovesical fistula. Lab order placed to be completed today include cbc/diff, cmp, iron screen, ferritin, peripheral smear, retic panel, ldh, SPEP, immunofixation, serum FLC, vitamin b12, folic acid, CRP, and ESR. Continue ferrous sulfate 1 tab daily with vitamin c at this time RTC with me by telephone to review lab results in 1-2 weeks RTC with me by telephone to review lab results in 1-2 weeks NIECY Schaffer documented in this encounter Nursing Notes * Angelina Ambrocio LPN - 07/11/2022 12:53 PM EDT Patient identifed by name and birthdate Do you have any concerns about pain management for today's visit? No Living Will or Advance Directive for Health Care as noted on the problem list. [facility] is a way you can talk to your provider on line through e-mail. Would you like to sign up? I can activate it for you? DECLINES Filed Vitals: 07/11/22 1253 BP: 130/58 Pulse: 79 Resp: 18 Temp: 36.7 C (98 F) TempSrc: Tympanic SpO2: 100% documented in this encounter Plan of Treatment Upcoming Encounters Date Type Specialty Care Team Description 08/05/2022 Telemedicine Hematology Oncology Ida Cueva CRNP [address] [facility] [place] [id number] 09/12/2022 Office Visit General Surgery Dionte Snyder MD [address] [place] [address] 10/08/2022 Office Visit Orthopedics Eliezer Gifford, DO [address] [place] [address] 10/10/2022 Office Visit Internal Medicine Marcela Pinto MD [address] [place] [address] 01/03/2023 Office Visit Cardiology Eron Lopez, DO [address] [place] [address] Health Maintenance Due Date Last Done Comments [...] Additional history exists CKD PHOS USE SMARTSET 89999 02/19/202302/10, 03/09/2021, 03/22/2019 DIABETES-EYE EXAM 03/08/2023 03/08/2022, , 08/07/2020, Additional history exists CKD HGB USE SMARTSET 77016 07/11/202307/11, 07/11/2022, 06/21/2022, Additional history exists O2 [...] filedocumented as of this encounter Results * SOLUBLE TRANSFERRIN RECEPTOR (07/11/2022 2:15 PM EDT) Pathologist [facility] Soluble Tranferrin Receptor 1.36 Comment: Test performed by [employer] [address] [place] [id number] Gusset Maker: ERON VALLE M.D. Test Reported by [facility], [facility], [address] [place] [address] Greg Bay M.D., Ph.D., Director of Laboratories , CLIA [id number] 0.76 - 1.76 mg/L [place] OTIS Specimen Blood - Venous blood specime n (specimen) Performing Organization Address [facility] Co de Phone Number [place] [address] [address] * (ABNORMAL) ERYTHROCYTE SEDIMENTATION RATE (ESR) (07/11/2022 2:15 PM EDT) Pathologist [facility] ESR 90(H) <30 mm/hour LABORATORY [facility] Specimen Blood - Venous blood specime n (specimen) Performing Organization Address City/[facility]/ZIP Co de Phone Number LABORATORY [facility] [address] [place] [address] * (ABNORMAL) CRP (INFLAMMATORY MARKER) (07/11/2022 2:15 PM EDT) Pathologist [facility] CRP (Inflammatory Marker) 114(H) <=5 mg/L LABORATORY [facility] Specimen Blood - Venous blood specime n (specimen) Performing Organization Address [facility] Co de Phone Number LAB[facility]ORY [facility] [address] [place] [address] * FOLIC ACID (07/11/2022 2:15 PM EDT) Folic Acid 7.4 >4.5 ng/mL LABORATORY [facility] Specimen Blood - Venous blood specime n (specimen) Performing Organization Address [facility] de Phone Number LABORATORY C [address] [place] [address] * VITAMIN B12 (07/11/2022 2:15 PM EDT) Vitamin B12 728 232-1,245 pg/mL LABORATORY [facility] Specimen Blood - Venous blood specime n (specimen) Performing Organization Address [facility] de Phone Number LABORATORY [facility] [address] [place] [address] * LD (07/11/2022 2:15 PM EDT) LD 151 <=250 U/L LABORATORY [facility] Specimen Blood - Venous blood specime n (specimen) Performing Organization Address [facility] de Phone Number LABORATORY [facility] [address] [place] [address] * (ABNORMAL) RETICULOCYTE PANEL (07/11/2022 2:15 PM EDT) Pathologist [facility] Reticulocyte Percent 2.01(H) 0.80 - 1.90 % LABORATORY [facility] Absolute Reticulocyte 69.3 31.3 - 100 .1 K/uL LABORATORY [facility] Immature Reticuloctye Fraction 27.5(H) 2.5 - 20.6 % LABORATORY [facility] Reticulocyte Hemoglobin 32.5 29.7 - 37.4 pg LABORATO RY [facility] Specimen Blood - Venous blood specime n (specimen) Performing Organization Address [facility] de Phone Number LABORATORY [facility] [address] [place] [address] documented in this encounter Visit Diagnoses Diagnosis Iron deficiency anemia due to chronic blood loss- Primary Iron deficiency anemia secondary to blood loss (chronic) Thrombocytosis Essential thrombocythemia Diverticulitis of colon Diverticulitis of colon (without mention of hemorrhage) Chronic kidney disease, stage 3a (HCC) Encounter for long-term (current) use of medications Encounter for long-term (current) use of other medications documented in this encounter Advance Directives Documents on File Type Date Recorded Patient Forms Examiner Expl anation Advanced 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 Directives occurred with: Not Discussed Care Teams Talent Sourcing Specialist Relationship Specialty Start Date End Date Marcela Pinto MD [address] [facility] [place] [address] PCP - General Internal Medicine 08/04/14 documented as of this encounter
--- OUTSIDE RECORDS SUMMARY | 2023-06-18 02:41 | External Medical Summary | Summary of Care ---
Author Name Unknown Organization [place] [address] Care Team Providers Care General Accountant Name Role Phone Marcela Pinto MD Primary Care Provider + Encounter Details Date Type Department Care Team Description 07/17/2022 Scan Encounter General Internal Medicine [facility] [address] [place] [address] Marcela Pinto MD [address] [place] [place] [address] <No scans attached> Allergies Active Allergy Reactions Severity Noted Date Comments Valsartan 07/10/2010 Enalapril 05/21/2006 Escitalopram Oxalate Nausea/vomiting 10/11/2009 Nauseated Iodinated Diagnostic Agents Nausea/vomiting 05/2010 IV Contrast Iodine Hives 12/18/2009 IV Contrast Metoprolol Tartrate 11/18/2006 Made pulse low [place] Oil-Black Currant-Vit E 07/10/2010 Verapamil 03/21/2004 Bupropion Hcl 10/30/2009 Makes pt sick in the stomach documented as of this encounter (statuses as of 07/19/2022) Medications Medication Sig Dispensed Refills Start Date [...] Asthma with severity to be determined,COPD, moderate ([facility]) USE ONE NEBULIZER TREATMENT TWICE A DAY DIRECTED FOR WORSENING ASTHMA. J45.909, J44.9 225 mL 1 06/29/2019 Active Albuterol Sulfate (VENTOLIN HFA) 108 (90 Base) MCG/ACT AERS Inhale 2 Puffs by mouth 2 times a day. 0 12/27/2019 Active Lancets MISCIndications:Type 2 diabetes mellitus with hemoglobin A1c goal of less than 7.0% ([facility]) Use as directed. USE TO TEST BLOOD [...] Respimat 1.25 MCG/ACT Inhalation Aerosol Solution (Tiotropium [place] Monohydrate) Inhale by mouth 2 Puffs daily [...] as of this encounter (statuses as of 07/19/2022) Active Problems Problem Noted Date Ischemic colitis [...] as of this encounter (statuses as of 07/19/2022) Resolved Problems Problem Noted Date Resolved Date [...] Hypoxemia 10/08/2011 10/30/2015 Genetic Sleep Disorder Research Other*[id number] 07/25/2011 05/15/2016 COPD, moderate 07/19/2011 07/28/2019 Overview: [...] as of this encounter (statuses as of 07/19/2022) Immunizations Name Administration Dates Next Due COVID-19 mRNA, LNP-s, No Pre serve, 2-Dose Series ([employer]) 08/21/2021,12/22/2020,2020 COVID-19, LNP-s, No Preserve , [...] Telemedicine Hematology Oncology Ida Cueva CRNP [address] [place] [address] 09/12/2022 Office Visit General Surgery Dionte Snyder MD [address] [facility] [place] [address] 10/08/2022 Office Visit Orthopedics Eliezer Gifford, DO [address] [place] [address] 10/10/2022 Office Visit Internal Medicine Marcela Pinto MD [address] [place] [address] 01/03/2023 Office Visit Cardiology Hammad Lopez, DO [address] [place] [address] Health Maintenance Due Date Last Done Comments [...] Additional history exists CKD PHOS USE SMARTSET 67381 02/19/202302/10, 03/09/2021, 03/22/2019 DIABETES-EYE EXAM 03/08/2023 03/08/2022, , 08/07/2020, Additional history exists CKD HGB USE SMARTSET 25697 07/11/202307/11, 07/11/2022, 06/21/2022, Additional history exists O2 [...] Documents on File Type Date Recorded Patient Office Services Manager Expl anation Advanced 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 Directives occurred with: Not Discussed Care Teams General Accountant Relationship Specialty Start Date End Date Pinto, Marcela Jose Maria, MD [address] [place] [address] PCP - General Internal Medicine 08/04/14 documented as of this encounter
--- OUTSIDE RECORDS SUMMARY | 2023-06-18 02:41 | External Medical Summary | Summary of Care ---
Author Name Unknown Organization [place] [address] Care Team Providers Care Friction Saw Operator Name Role Phone Marcela Pinto MD Primary Care Provider + Encounter Details Date Type Department Care Team Description 07/17/2022 Orders Only Unspecified Department Wayne Kelley MD [address] [place] [address] [place] [address] Allergies Active Allergy Reactions Severity Noted Date Comments Valsartan 07/10/2010 Enalapril 05/21/2006 Escitalopram Oxalate Nausea/vomiting 10/11/2009 Nauseated Iodinated Diagnostic Agents Nausea/vomiting 05/2010 IV Contrast Iodine Hives 12/18/2009 IV Contrast Metoprolol Tartrate 11/18/2006 Made pulse low [place] Oil-Black Currant-Vit E 07/10/2010 Verapamil 03/21/2004 Bupropion Hcl 10/30/2009 Makes pt sick in the stomach documented as of this encounter (statuses as of 07/23/2022) Medications Medication Sig Dispensed Refills Start Date [...] Asthma with severity to be determined,COPD, moderate ([facility]) USE ONE NEBULIZER TREATMENT TWICE A DAY DIRECTED FOR WORSENING ASTHMA. J45.909, J44.9 225 mL 1 06/29/2019 Active Albuterol Sulfate (VENTOLIN HFA) 108 (90 Base) MCG/ACT AERS Inhale 2 Puffs by mouth 2 times a day. 0 12/27/2019 Active Lancets MISCIndications:Type 2 diabetes mellitus with hemoglobin A1c goal of less than 7.0% ([facility]) Use as directed. USE TO TEST BLOOD [...] ejection fraction and diastolic dysfunction ([facility]),NICM (nonischemic cardiomyopathy) ([facility]),Presence of Watchman left atrial appendage closure device Take 1 tab in the morning and 1/2 tab in the evening. 135 Tablet 3 10/04/2021 Active Spiriva Respimat 1.25 MCG/ACT Inhalation Aerosol Solution (Tiotropium [place] Monohydrate) Inhale by mouth 2 Puffs daily [...] WITH BREAKFAST 90 Tablet 1 02/07/2022 Active Delilahuch Vermichelle In Vitro Strip (Glucose Blood) Checks blood [...] as of this encounter (statuses as of 07/23/2022) Active Problems Problem Noted Date Ischemic colitis [...] as of this encounter (statuses as of 07/23/2022) Resolved Problems Problem Noted Date Resolved Date [...] Hypoxemia 10/08/2011 10/30/2015 Genetic Sleep Disorder Research Other*[id number] 07/25/2011 05/15/2016 COPD, moderate 07/19/2011 07/28/2019 Overview: [...] as of this encounter (statuses as of 07/23/2022) Immunizations Name Administration Dates Next Due COVID-19 mRNA, LNP-s, No Pre serve, 2-Dose Series (Curriculet) 08/21/2021,12/22/2020,2020 COVID-19, LNP-s, No Preserve , Tyler-sucrose, [...] Encounters Date Type Specialty Care Team Description 07/25/2022 Hospital Encounter Wayne Kelley MD [address] [facility] [place] [address] 07/29/2022 Office Visit Internal Medicine Leanne Soriano MD [address] [place] [address] 08/05/2022 Telemedicine Hematology Oncology Ida Cueva CRNP [address] [facility] [place] [id number] 09/12/2022 Office Visit General Surgery Dionte Snyder MD [address] [facility] [place] [address] 10/08/2022 Office Visit Orthopedics Eliezer Gifford, DO [address] [facility] [place] [address] 10/10/2022 Office Visit Internal Medicine Marcela Pinto MD [address] [place] [address] 01/03/2023 Office Visit Cardiology Hammad Lopez, DO [address] [place] [address] Health Maintenance Due Date Last Done Comments [...] Additional history exists CKD PHOS USE SMARTSET 97634 02/19/202302/10, 03/09/2021, 03/22/2019 DIABETES-EYE EXAM 03/08/2023 03/08/2022, , 08/07/2020, Additional history exists CKD HGB USE SMARTSET 03924 07/11/202307/11, 07/11/2022, 06/21/2022, Additional history exists O2 [...] Name Priority Date/Time Associated Diagnosis Comments RADIOLOGY EXAM - CT (IMAGES ONLY, NO REPORT) Routine 07/17/2022 2:15 PM EDT documented in this encounter Results * RADIOLOGY EXAM - CT (IMAGES ONLY, NO REPORT) (07/17/2022 2:15 PM EDT) Specimen Narrative Scheduling, Silent - 07/23/2022 7:46 PM EDT This is an imaging study not interpreted or resulted by a [facility] or [facility] contracted radiologist. documented in this encounter Advance Directives Documents on File Type Date Recorded Patient Director Of Physician Practices Expl anation Advanced 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 Directives occurred with: Not Discussed Care Teams Friction Saw Operator Relationship Specialty Start Date End Date Marcela Pinto MD [address] [place] [address] PCP - General Internal Medicine 08/04/14 documented as of this encounter
--- OUTSIDE RECORDS SUMMARY | 2023-06-18 02:41 | External Medical Summary | Summary of Care ---
Author Name Unknown Organization [place] [address] Care Team Providers Care Building Performance Consultant Name Role Phone Marcela Pinto MD Primary Care Provider + Encounter Details Date Type Department Care Team Description 07/17/2022 Hospital Encounter Radiology Film File [address] [place], [place] [id number] Allergies Active Allergy Reactions Severity Noted Date Comments Valsartan 07/10/2010 Enalapril 05/21/2006 Escitalopram Oxalate Nausea/vomiting 10/11/2009 Nauseated Iodinated Diagnostic Agents Nausea/vomiting 05/2010 IV Contrast Iodine Hives 12/18/2009 IV Contrast Metoprolol Tartrate 11/18/2006 Made pulse low [place] Oil-Black Currant-Vit E 07/10/2010 Verapamil 03/21/2004 Bupropion Hcl 10/30/2009 Makes pt sick in the stomach documented as of this encounter (statuses as of 07/24/2022) Medications Medication Sig Dispensed Refills Start Date [...] Asthma with severity to be determined,COPD, moderate ([facility]) USE ONE NEBULIZER TREATMENT TWICE A DAY DIRECTED FOR WORSENING ASTHMA. J45.909, J44.9 225 mL 1 06/29/2019 Active Albuterol Sulfate (VENTOLIN HFA) 108 (90 Base) MCG/ACT AERS Inhale 2 Puffs by mouth 2 times a day. 0 12/27/2019 Active Lancets MISCIndications:Type 2 diabetes mellitus with hemoglobin A1c goal of less than 7.0% ([facility]) Use as directed. USE TO TEST BLOOD SUGAR 3 TIMES A DAY FOR DIAGNOSIS CODE OF E11.9 300 Each 1 01/05/2020 Active BonafideSens N Voice System Device Use as directed. [...] Respimat 1.25 MCG/ACT Inhalation Aerosol Solution (Tiotropium [place] Monohydrate) Inhale by mouth 2 Puffs daily [...] WITH BREAKFAST 90 Tablet 1 02/07/2022 Active Elda Sanches In Vitro Strip (Glucose Blood) Checks blood [...] as of this encounter (statuses as of 07/24/2022) Active Problems Problem Noted Date Ischemic colitis [...] as of this encounter (statuses as of 07/24/2022) Resolved Problems Problem Noted Date Resolved Date [...] Hypoxemia 10/08/2011 10/30/2015 Genetic Sleep Disorder Research Other*[id number] 07/25/2011 05/15/2016 COPD, moderate 07/19/2011 07/28/2019 Overview: [...] as of this encounter (statuses as of 07/24/2022) Immunizations Name Administration Dates Next Due COVID-19 mRNA, LNP-s, No Pre serve, 2-Dose Series (Collaborate Cloud) 08/21/2021,12/22/2020,2020 COVID-19, LNP-s, No Preserve , Tyler-sucrose, [...] 07/25/2022 Hospital Encounter Wayne Kelley MD [address] [facility] [place] [address] 08/05/2022 Telemedicine Hematology Oncology Ida Cueva CRNP [address] [facility] [place] [address] 09/12/2022 Office Visit General Surgery Dionte Snyder MD [address] [place] [address] 10/08/2022 Office Visit Orthopedics Eliezer Gifford, DO [address] [place] [address] 10/10/2022 Office Visit Internal Medicine [facility] [address] 01/03/2023 Office Visit Cardiology Hammad Lopez, DO [address] [place] [address] Health Maintenance Due Date Last Done Comments [...] Additional history exists CKD PHOS USE SMARTSET 54984 02/19/2023 05, 03/09/2021, 03/22/2019 DIABETES-EYE EXAM 03/08/2023 03/08/2022, , 08/07/2020, Additional history exists CKD HGB USE SMARTSET 35516 07/11/202307/11, 07/11/2022, 06/21/2022, Additional history exists O2 [...] interpreted or resulted by a [facility] or [facility] radiologist. documented in this encounter Advance Directives Documents on File Type Date Recorded Patient Occupational Therapy Instructor Expl anation Advanced 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 Directives occurred with: Not Discussed Care Teams Building Performance Consultant Relationship Specialty Start Date End Date Marcela Pinto MD [address] [place] [address] PCP - General Internal Medicine 08/04/14 documented as of this encounter
--- OUTSIDE RECORDS SUMMARY | 2023-06-18 02:41 | External Medical Summary | Summary of Care ---
Author Name Unknown Organization [place] [address] Care Team Providers Care Shipping Clerk Name Role Phone Marcela Pinto MD Primary Care Provider + Encounter Details Date Type Department Care Team Description 07/18/2022 Emergency Telemedicine IP Allergies Active Allergy Reactions Severity Noted Date Comments Valsartan 07/10/2010 Enalapril 05/21/2006 Escitalopram Oxalate Nausea/vomiting 10/11/2009 Nauseated Iodinated Diagnostic Agents Nausea/vomiting 05/2010 IV Contrast Iodine Hives 12/18/2009 IV Contrast Metoprolol Tartrate 11/18/2006 Made pulse low [place] Oil-Black Currant-Vit E 07/10/2010 Verapamil 03/21/2004 Bupropion [...] severity to be determined,COPD, moderate ([facility]) USE ONE NEBULIZER TREATMENT TWICE A DAY DIRECTED FOR WORSENING ASTHMA. J45.909, J44.9 225 mL 1 06/29/2019 Active Albuterol Sulfate (VENTOLIN HFA) 108 (90 Base) MCG/ACT AERS Inhale 2 Puffs by mouth 2 times a day. 0 12/27/2019 Active Lancets MISCIndications:Type 2 diabetes mellitus with hemoglobin A1c goal of less than 7.0% ([facility]) Use as directed. USE TO TEST BLOOD SUGAR 3 TIMES A DAY FOR DIAGNOSIS CODE OF E11.9 300 Each 1 01/05/2020 Active SchoolEdge MobileSens N Voice System Device Use as directed. [...] 1.25 MCG/ACT Inhalation Aerosol Solution (Tiotropium [place] Monohydrate) Inhale by mouth 2 Puffs daily [...] BREAKFAST 90 Tablet 1 02/07/2022 Active Elda Vermichelle In Vitro Strip (Glucose Blood) Checks [...] Hypoxemia 10/08/2011 10/30/2015 Genetic Sleep Disorder Research Other*[id number] 07/25/2011 05/15/2016 COPD, moderate 07/19/2011 07/28/2019 Overview: [...] mRNA, LNP-s, No Pre serve, 2-Dose Series ([employer]) 08/21/2021,12/22/2020,2020 COVID-19, LNP-s, No Preserve , Tyler-sucrose, [...] No 06/06/2022 documented as of this encounter Consult Notes * Dhruv Sen II, DO - 07/18/2022 10:55 AM EDT CONSULT - Infectious Disease TELEHEALTH IP Name: Nina Harrington Location: MAIN IP TELEMEDICINE/Tel* Date: 07/18/2022 Time: 10:55 AM REQUESTING SERVICE: [facility] REASON FOR CONSULT: Telemedicine Consult - recurrent diverticulitis After connecting through [employer], patient was identified by name and date of and wristband checked. Patient was then informed that this was a Telemedicine visit and that the exam was being conducted confidentially over secure lines. My office door was closed. No one else was in the room with me. Patient acknowledged consent and understanding of privacy and security of the Telemedicine visit, and gave us permission to have the care restaurant hourly team member stay in the room in order to assist with thehistory and to conduct the exam. I informed the patient that I have reviewed their record in [facility] and presented the opportunity for them to ask any questions regarding the visit today. The patient agreed to participate. HPI: Patient is a 81 year old female with PMHx of chronic hypoxemic respiratory failure on 2 L of oxygen during day and 4 L at night, COPD with asthma overlap, chronic HFrEF, PAF status post watchmandevice, CKD stage III, HTN, HLD, T2DM, gastroparesis, history of ischemic colitis, history of diverticulitis, known colovesicular fistula presented to [facility] on 07/17/2022 for left lower quadrant pain x2 to 3 days as well as hematochezia x1 day prior to hospital presentation. At [facility], pt had CT abd/pelvis showed acute sigmoid diverticulitis with contained perforations and small abscess. No drainable abscesses found. Pt was started on Zosyn IV. ID consulted for evaluation and management. ALLERGIES: Diovan [valsartan], Enalapril, Escitalopram oxalate, Iodinated diagnostic agents, Iodine, Metoprolol tartrate, [place] oil-black currant-vit e, Verapamil, and Wellbutrin [bupropion hcl] PAST MEDICAL HISTORY: Past Medical History: Diagnosis Date ACEI/ARB contraindicated Asthma Carpal tunnel syndrome DM type 2, goal: symptom mgmt (HCC) Generalized osteoarthritis HTN, goal below 140/90 Mixed dyslipidemia PAST SURGICAL HISTORY: Past Surgical History: Procedure Laterality Date APPENDECTOMY W/OTHER PROCEDURE 1960 when removed gall bladder COLONOSCOPY, DIAGNOSTIC (RECTUM) 05/29/2016 poor prep, diverticulosis/inpt [facility] COLONOSCOPY, DIAGNOSTIC (RECTUM) 06/05/2017 diverticulosis, repeat 3 yrs/[facility] COLONOSCOPY, DIAGNOSTIC (RECTUM) 02/28/2018 adenomatous polyps, diverticulosis, repeat 3 yrs / [facility] COLONOSCOPY, DIAGNOSTIC (RECTUM) 05/08/2020 inflammatory tissue on bx, diverticulosis / [facility] COLONOSCOPY, W/BIOPSY 03/20/2012 hyperplastic polyps rpt 3 years. EGD, FLEXIBLE, DIAGNOSTIC 04/29/2014 normal/inpt [facility] EGD, FLEXIBLE, DIAGNOSTIC 05/29/2016 fundic submucosal mass/inpt [facility] EGD, FLEXIBLE, DIAGNOSTIC 05/08/2020 normal / [facility] EGD, FLEXIBLE,W/ENDOSCOPIC US 11/08/2016 inflammatory changes, stomach lesion, repeat EUS 1.5 yrs/[facility] EGD, FLEXIBLE,W/ENDOSCOPIC US 05/01/2018 stromal cell (smooth muscle) neoplasm, CBD dilation, repeat 2 yrs (needs OV prior)/[facility] EGD, FLEXIBLE,W/ENDOSCOPIC US 09/01/2020 leiomyoma / [facility] INCISIONAL HERNIA REPAIR, LAP, REDUCIBLE 09/29/2012 Repair of incarcerated supraumbilical (incisional) hernia with Atrium mesh 09/29/12 LIGATE/CUT OVIDUCT(S) REMOVAL OF TONSILS, AGE 12+ age 11 REMOVE GALLBLADDER 1960 SIGMOIDOSCOPY, DIAGNOSTIC 04/29/2014 stool in rectum/inpt [facility] SMALL BOWEL ENDOSCOPY, REMOVE FOREIGN BODY [...] Alive Niko Alive Niko Alive ROS: Constitutional: (-) fever chills sweats or weight loss Eyes: (-) negative, no amaurosis fugax, pain, blurred vision, or redness ENT: (-) negative: no headaches, vertigo, hearing loss, sinus, ear, or throat problems Cardiovascular: (-) negative: no chest pain, dyspnea, syncope, or palpitations Pulmonary: (-) negative: no cough, wheezing, or shortness of breath Abdominal/GI: (+) abdominal pain Musculoskeletal: (-) negative: no pain Endocrine: (-) negative: no weight change, heat or cold intolerance, polyuria Hematology/oncology: (-) negative: no fever, night sweats, masses, or swollen nodes Skin: (-) negative: no rash or new or changing moles Neurology: (-) negative: no focal neurologic defect Psychiatry: (-) negative: no depression or anxiety PHYSICAL EXAMINATION: Most Recent Vital Signs: BP: 95/68 Pulse: 56 Temp: 37.2 C Resp: 18 SpO2: 98% on 2L Constitutional: no acute distress, (+) chronically ill HEENT: normal: normocephalic, atraumatic; no masses, tenderness, or adenopathy Eyes: PERRLA, sclera and conjunctiva normal LABS: Labs reviewed personally MICROBIOLOGY DATA: personally reviewed all micro data [facility] Blood culture on 07/17/2022 NGTD IMAGING: personally reviewed all imaging data, agree with rads read. CT abd/pelvis on 07/17/2022 1. Acute sigmoid diverticulitis with several small gas and fluid containing collections within the sigmoid mesocolon compatible with contained perforations/small abscesses. These findings are similarto the 06/04/2022 study. No drainable fluid collection identified. 2. Probable colovesicular fistula with a large amount of air again noted within the urinary bladderlumen. 3. The previously described endometrial thickening is better seen on the comparison contrast-enhanced study. 4. No bowel obstruction. IMPRESSION: Patient is a 81 year old female with PMHx of chronic hypoxemic respiratory failure on 2L of oxygen during day and 4 L at night, COPD with asthma overlap, chronic HFrEF, PAF status post watchman device, CKD stage III, HTN, HLD, T2DM, gastroparesis, history of ischemic colitis, history of diverticulitis, known colovesicular fistula presented to [facility] on 07/17/2022 for left lower quadrantpain x2 to 3 days as well as hematochezia x1 day prior to hospital presentation. Pt diagnosed with Acute Diverticulitis with contained perforations and small abscesses. RECOMMENDATIONS: - Recommend continuing Zosyn 4.5g q8 IV for a total of 4 weeks (start date: 07/17/2022 and End date:08/14/2022) - Recommend CMP and CBC weekly. - Recommend repeat CT abd/pelvis with oral contrast in 2-3 weeks. - we will sign off, we will not actively monitor patient or follow patient labs, if ID f/u is wanted, pt will need a f/u appointment with ID within the treatment timeline and seen in person prior to ID managing antibiotics. Please call or tiger text for additional recommendation. Thank you. documented in this encounter Plan of Treatment Upcoming Encounters Date Type Specialty Care Team Description 08/05/2022 Telemedicine Hematology Oncology Ida Cueva CRNP [address] [place] [phone] 09/12/2022 Office Visit General Surgery Dionte Snyder MD [address] [place] [address] 10/08/2022 Office Visit Orthopedics Eliezer Gifford DO [address] [facility] [place] [address] 10/10/2022 Office Visit Internal Medicine Marcela Pinto MD [address] [place], [place] [address] 01/03/2023 Office Visit [facility]iology [facility]ammad Lopez [facility] [address] [facility] [place] [address] Health Maintenance Due Date Last Done Comments [...] Additional history exists CKD PHOS USE SMARTSET 70665 02/19/202302/10, 03/09/2021, 03/22/2019 DIABETES-EYE EXAM 03/08/2023 03/08/2022, , 08/07/2020, Additional history exists CKD HGB USE SMARTSET 05966 07/11/202307/11, 07/11/2022, 06/21/2022, Additional history exists O2 [...] Documents on File Type Date Recorded Patient Tool Grinding Machine 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 Directives occurred with: Not Discussed Care Teams Shipping Clerk Relationship Specialty Start Date End Date Marcela Pinto MD [address] [place], [place] [id number] PCP - General Internal Medicine 08/04/14 documented as of this encounter
--- OUTSIDE RECORDS SUMMARY | 2023-06-18 02:41 | External Medical Summary | Summary of Care ---
Author Name Unknown Organization [place] [address] Care Team Providers Care Store Clerk Name Role Phone Marcela Pinto MD Primary Care Provider + Encounter Details Date Type Department Care Team Description 07/22/2022 Hospital Encounter Radiology Film File [address] [place], [place] [id number] Arrived Allergies Active Allergy Reactions Severity Noted Date Comments Valsartan 07/10/2010 Enalapril 05/21/2006 Escitalopram Oxalate Nausea/vomiting 10/11/2009 Nauseated Iodinated Diagnostic Agents Nausea/vomiting 05/2010 IV Contrast Iodine Hives 12/18/2009 IV Contrast Metoprolol Tartrate 11/18/2006 Made pulse low [place] Oil-Black Currant-Vit E 07/10/2010 Verapamil 03/21/2004 Bupropion [...] Asthma with severity to be determined,COPD, moderate ([facility]) USE ONE NEBULIZER TREATMENT TWICE A DAY DIRECTED FOR WORSENING ASTHMA. J45.909, J44.9 225 mL 1 06/29/2019 Active Albuterol Sulfate (VENTOLIN HFA) 108 (90 Base) MCG/ACT AERS Inhale 2 Puffs by mouth 2 times a day. 0 12/27/2019 Active Lancets MISCIndications:Type 2 diabetes mellitus with hemoglobin A1c goal of less than 7.0% ([facility]) Use as directed. USE TO TEST BLOOD SUGAR 3 TIMES A DAY FOR DIAGNOSIS CODE OF E11.9 300 Each 1 01/05/2020 Active WatchupSens N Voice System Device Use as directed. [...] ejection fraction and diastolic dysfunction ([facility]),NICM (nonischemic cardiomyopathy) ([facility]),Presence of Watchman left atrial appendage closure device Take 1 tab in the morning and 1/2 tab in the evening. 135 Tablet 3 10/04/2021 Active Spiriva Respimat 1.25 MCG/ACT Inhalation Aerosol Solution (Tiotropium [place] Monohydrate) Inhale by mouth 2 Puffs daily [...] Hypoxemia 10/08/2011 10/30/2015 Genetic Sleep Disorder Research Other*[id number] 07/25/2011 05/15/2016 COPD, moderate 07/19/2011 07/28/2019 Overview: [...] mRNA, LNP-s, No Pre serve, 2-Dose Series ([email or web address]) 08/21/2021,12/22/2020,2020 COVID-19, LNP-s, No Preserve , Tyler-sucrose, [...] 07/25/2022 Hospital Encounter Wayne Kelley MD [address] [facility] [place] [address] 08/05/2022 Telemedicine Hematology Oncology Ida Cueva CRNP [address] [facility] [place] [address] 09/12/2022 Office Visit General Surgery Dionte Snyder MD [address] [place] [address] 10/08/2022 Office Visit Orthopedics Eliezer Gifford, DO [address] [place] [address] 10/10/2022 Office Visit Internal Medicine [facility] [address] [facility] [address] 01/03/2023 Office Visit Cardiology Hammad Lopez, DO [address] [place] [address] Health Maintenance Due Date Last Done Comments [...] Additional history exists CKD PHOS USE SMARTSET 85007 02/19/202302/10, 03/09/2021, 03/22/2019 DIABETES-EYE EXAM 03/08/2023 03/08/2022, , 08/07/2020, Additional history exists CKD HGB USE SMARTSET 31848 07/11/202307/11, 07/11/2022, 06/21/2022, Additional history exists O2 ASSESSMENT COMPLETED IN PAST YEAR FOR COPD 07/11/2023 07/11/2022 DXA Scan 08/08/2025 08/08/2020, /, 06/19/2010, Additional history exists DTaP,Tdap,and Td Vaccines [...] - CT (IMAGES ONLY, NO REPORT) Routine 07/22/2022 11:30 AM EDT documented in this encounter Results * RADIOLOGY EXAM - CT (IMAGES ONLY, NO REPORT) (07/22/2022 11:30 AM EDT) Specimen Narrative Scheduling, Silent - 07/23/2022 7:43 PM EDT This is an imaging study not interpreted or resulted by a [facility] or [facility] contracted radiologist. 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
--- OUTSIDE RECORDS SUMMARY | 2023-06-18 02:41 | External Medical Summary | Summary of Care ---
Author Name Unknown Organization [place] [address] Care Team Providers Care Geodetic Engineer Name Role Phone Marcela Pinto MD Primary Care Provider + Encounter Details Date Type Department Care Team Description 07/17/2022 Scan Encounter General Internal Medicine [facility] [address] [place] [address] Marcela Pinto MD [address] [facility] [place] [address] <No scans attached> Allergies Active Allergy Reactions Severity Noted Date Comments Valsartan 07/10/2010 Enalapril 05/21/2006 Escitalopram Oxalate Nausea/vomiting 10/11/2009 Nauseated Iodinated Diagnostic Agents Nausea/vomiting 05/2010 IV Contrast Iodine Hives 12/18/2009 IV Contrast Metoprolol Tartrate 11/18/2006 Made pulse low [place] Oil-Black Currant-Vit E 07/10/2010 Verapamil 03/21/2004 Bupropion [...] severity to be determined,COPD, moderate ([facility]) USE ONE NEBULIZER TREATMENT TWICE A DAY DIRECTED FOR WORSENING ASTHMA. J45.909, J44.9 225 mL 1 06/29/2019 Active Albuterol Sulfate (VENTOLIN HFA) 108 (90 Base) MCG/ACT AERS Inhale 2 Puffs by mouth 2 times a day. 0 12/27/2019 Active Lancets MISCIndications:Type 2 diabetes mellitus with hemoglobin A1c goal of less than 7.0% ([facility]) Use as directed. USE TO TEST [...] Respimat 1.25 MCG/ACT Inhalation Aerosol Solution (Tiotropium [place] Monohydrate) Inhale by mouth 2 Puffs daily [...] Hypoxemia 10/08/2011 10/30/2015 Genetic Sleep Disorder Research Other*[id number] 07/25/2011 05/15/2016 COPD, moderate 07/19/2011 07/28/2019 Overview: [...] mRNA, LNP-s, No Pre serve, 2-Dose Series ([employer]) 08/21/2021,12/22/2020,2020 COVID-19, LNP-s, No Preserve , Tyler-sucrose, [...] Telemedicine Hematology Oncology Ida Cueva CRNP [address] [place] [address] 09/12/2022 Office Visit General Surgery Dionte Snyder MD [address] [facility] [place] [address] 10/08/2022 Office Visit Orthopedics Eliezer Gifford, DO [address] [place] [address] 10/10/2022 Office Visit Internal Medicine Marcela Pinto MD [address] [place] [address] 01/03/2023 Office Visit Cardiology Hammad Lopez, DO [address] [place] [address] Health Maintenance Due Date Last Done Comments [...] Additional history exists CKD PHOS USE SMARTSET 81390 02/19/202302/10, 03/09/2021, 03/22/2019 DIABETES-EYE EXAM 03/08/2023 03/08/2022, , 08/07/2020, Additional history exists CKD HGB USE SMARTSET 66024 07/11/202307/11, 07/11/2022, 06/21/2022, Additional history exists O2 [...] Documents on File Type Date Recorded 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
--- OUTSIDE RECORDS SUMMARY | 2023-06-18 02:41 | External Medical Summary | Summary of Care ---
Author Name Unknown Organization [place] [address] Care Team Providers Care Quality Assurance Technician Name Role Phone Marecla Pinto MD Primary Care Provider + Encounter Details Date Type Department Care Team Description 07/22/2022 Orders Only Unspecified Department Wayne Kelley MD [address] [place] [address] [place] [address] Allergies Active Allergy Reactions Severity Noted Date Comments Valsartan 07/10/2010 Enalapril 05/21/2006 Escitalopram Oxalate Nausea/vomiting 10/11/2009 Nauseated Iodinated Diagnostic Agents Nausea/vomiting 05/2010 IV Contrast Iodine Hives 12/18/2009 IV Contrast Metoprolol Tartrate 11/18/2006 Made pulse low [place] Oil-Black Currant-Vit E 07/10/2010 Verapamil 03/21/2004 Bupropion [...] determined,COPD, moderate ([facility]) USE ONE NEBULIZER TREATMENT TWICE A DAY DIRECTED FOR WORSENING ASTHMA. J45.909, J44.9 225 mL 1 06/29/2019 Active Albuterol Sulfate (VENTOLIN HFA) 108 (90 Base) MCG/ACT AERS Inhale 2 Puffs by mouth 2 times a day. 0 12/27/2019 Active Lancets MISCIndications:Type 2 diabetes mellitus with hemoglobin A1c goal of less than 7.0% ([facility]) Use as directed. USE TO [...] Respimat 1.25 MCG/ACT Inhalation Aerosol Solution (Tiotropium [place] Monohydrate) Inhale by mouth 2 Puffs daily [...] Hypoxemia 10/08/2011 10/30/2015 Genetic Sleep Disorder Research Other*[id number] 07/25/2011 05/15/2016 COPD, moderate 07/19/2011 07/28/2019 Overview: [...] mRNA, LNP-s, No Pre serve, 2-Dose Series ([employer]) 08/21/2021,12/22/2020,2020 COVID-19, LNP-s, No Preserve , Tyler-sucrose, [...] 07/25/2022 Hospital Encounter Wayne Kelley MD [address] [facility] [place] [address] 07/29/2022 Office Visit Internal Medicine Leanne Soriano MD [address] [place] [address] 08/05/2022 Telemedicine Hematology Oncology Ida Cueva CRNP [address] [facility] [place] [id number] 09/12/2022 Office Visit General Surgery Dionte Snyder MD [address] [facility] [place] [address] 10/08/2022 Office Visit Orthopedics Eliezer Gifford, DO [address] [facility] [place] [address] 10/10/2022 Office Visit Internal Medicine Marcela Pinto MD [address] [place] [facility] [address] 01/03/2023 Office Visit Cardiology Hammad Lopez, DO [address] [place] [address] Health Maintenance Due Date Last Done Comments [...] Additional history exists CKD PHOS USE SMARTSET 09643 02/19/202302/10, 03/09/2021, 03/22/2019 DIABETES-EYE EXAM 03/08/2023 03/08/2022, , 08/07/2020, Additional history exists CKD HGB USE SMARTSET 57360 07/11/202307/11, 07/11/2022, 06/21/2022, Additional history exists O2 [...] interpreted or resulted by a [facility] or [facility] contracted radiologist. 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
--- OUTSIDE RECORDS SUMMARY | 2023-06-18 02:42 | External Medical Summary ---
Author Name Unknown Address Unknown Organization K01:LABORATORY [facility] [place] - [address] [facility] [address] Laboratory Report Ordering Provider Test Date Status JOSE A JOHNSON 07/11/2022 14:15:01 Final Observation Date Value Abnormality Reference (Units ) Status SYNC LEUKOCYTES IN BLOOD BY AUTOMATED COUNT 07/11/2022 14:15:01 18.94 Above high normal 4.00-10.80 (K/uL) Final Segs 07/11/2022 14:15:01 77.6 Above high normal 40.0-75.0 (%) Final Lymphs % 07/11/2022 14:15:01 11.0 Below low normal 18.0-42.0 (%) Final Monos 07/11/2022 14:15:01 9.7 1.0-11.0 (%) Final Eosinophils 07/11/2022 14:15:01 0.9 0.0-6.0 (%) Final Basos 07/11/2022 14:15:01 0.3 0.0-2.0 (%) Final Immature Granulocyte, Percent 07/11/2022 14:15:01 0.5 0.0-2.0 (%) Final Absolute Segs 07/11/2022 14:15:01 14.69 Above high normal 1.80-7.70 (K/uL) Final Lymphs, absolute 07/11/2022 14:15:01 2.08 1.00-4.80 (K/ul) Final Monos, Abs 07/11/2022 14:15:01 1.84 Above high normal 0.00-1.10 (K/uL) Final Eos, Abs 07/11/2022 14:15:01 0.17 0.00-0.70 (K/uL) Final Basos, Abs 07/11/2022 14:15:01 0.06 0.00-0.20 (K/uL) Final Immature Granulocytes, Number 07/11/2022 14:15:01 0.10 0.00-0.20 (K/uL) Final Performing Location LABORATORY [facility] [place] - [facility] [address] [facility] [address]
--- OUTSIDE RECORDS SUMMARY | 2023-06-18 02:42 | External Medical Summary ---
Author Name Unknown Address Unknown Organization K01:[facility]ATORY [facility] [place] - [address] [facility] [address] Laboratory Report Ordering Provider Test Date Status KUSH,ERON 07/11/2022 14:15:01 Final Observation Date Value Abnormality Reference (Units ) Status Folic Acid 07/11/2022 14:15:01 7.4 >4.5 (ng/ mL) Final Performing Location LABORATORY [facility] - [address] [facility] [address]
--- OUTSIDE RECORDS SUMMARY | 2023-06-18 02:42 | External Medical Summary | Summary of Care ---
Author Name Unknown Organization [place] [address] Care Team Providers Care Credit Processor Name Role Phone Marcela Pinto MD Primary Care Provider + Reason for Visit * Reason Onset Date Comments Home Health 06/14/2022 UPDATE Encounter Details Date Type Department Care Team Description 06/14/2022 Telephone General Internal Medicine [facility] [place] [address] [place] [address] Marcela Pinto MD [address] [place] [address] Home Health (UPDATE ) Allergies Active Allergy Reactions Severity Noted Date Comments Valsartan 07/10/2010 Enalapril 05/21/2006 Escitalopram Oxalate Nausea/vomiting 10/11/2009 Nauseated Iodinated Diagnostic Agents Nausea/vomiting 05/2010 IV Contrast Iodine Hives 12/18/2009 IV Contrast Metoprolol Tartrate 11/18/2006 Made pulse low [place] Oil-Black Currant-Vit E 07/10/2010 Verapamil 03/21/2004 Bupropion Hcl 10/30/2009 Makes pt sick in the stomach documented as of this encounter (statuses as of 07/11/2022) Medications Medication Sig Dispensed Refills Start Date [...] stool per day. . 2 Bottle 3 6 Active Multiple Vitamins-Minerals (ONE DAILY MULTIVITAMIN WOMEN) [...] 2 times a day. 0 0 Active Lancets MISCIndications:Typ e 2 diabetes mellitus with hemoglobin A1c goal of less than 7.0% ([facility]) Use as directed. 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 135 Tablet 3 1 Active Spiriva Respimat 1.25 MCG/ACT Inhalation Aerosol Solution (Tiotropium [place] Monohydrate) Inhale by mouth 2 Puffs daily . 0 Active Lisinopril 2.5 MG Oral Tablet (Prinivil)Indicatio ns:Paroxysmal atrial fibrillation (HCC),Chronic systolic heart failure (HCC) Take by mouth 1 Tablet in the morning. 90 Tablet 3 2 Active Ketoconazole 2 % External Cream APPLY TO GROIN AREA TWICE A DAY 60 g 11 2 Active Spironolactone 25 MG Oral Tablet (Aldactone) Take by mouth 0.5 Tablets once a day on Friday, Friday, and Friday only . 45 Tablet 3 2 Active Atorvastatin Calcium 40 MG Oral Tablet (Lipitor) Take by mouth 1 Tablet in the morning. 100 Tablet 3 2 Active methIMAzole 10 MG Oral Tablet (Tapazole)Indicatio ns:Hyperthyroidism TAKE 1 TABLET BY MOUTH EVERY DAY 90 Tablet 1 2 Active Additional Information Patient taking differently: 5 mg Oral DAILY, Reported on 06/25/2022 Ipratropium-Albuter ol 20-100 MCG/ACT Inhalation Aerosol Solution (Combivent Respimat)Indication s:Asthma with severity to be determined,COPD, moderate (HCC) TAKE 1 PUFF BY MOUTH 4 TIMES A DAY 12 g 1 2 Active Glimepiride 2 MG Oral Tablet (Amaryl) TAKE 1 TABLET BY MOUTH EVERY DAY WITH BREAKFAST 90 Tablet 1 2 Active OneTouch Verio In Vitro Strip (Glucose Blood) Checks blood sugar 3 times a day. E11.9 DX 100 Strip 5 2 Active Dicyclomine HCl 20 MG Oral [...] FOR NAUSEA 60 Tablet 2 2 Active HYDROcodone-Acetami nophen 5-325 MG Oral TabletIndications:G eneralized osteoarthritis Take by mouth 1 Tablet every 6 hours as needed for Pain, Mild. 120 Tablet 0 2 Active Sertraline HCl 25 MG Oral [...] FOR NAUSEA 60 Tablet 5 2 Active predniSONE 50 MG Oral Tablet (Deltasone)Indicati ons:Lower abdominal pain,Diverticulitis of colon Take 1 tab 13 hrs before scan, take 1 tab 7 hrs before scan, take 1 tab 1 hr before scan with Benadryl 3 Tablet 0 2 06/25/20 22 Discontinue d(Patient preference/ discontinua tion) Ciprofloxacin HCl 500 MG Oral Tablet (Cipro) Take by mouth 1 Tablet in the morning AND 1 Tablet before bedtime. Do all this for 12 days. 24 Tablet 0 2 06/19/20 22 metroNIDAZOLE 500 MG Oral Tablet Take by mouth 1 Tablet in the morning AND 1 Tablet at noon AND 1 Tablet before bedtime. Do all this for 12 days. 36 Tablet 0 2 06/19/20 22 Furosemide 40 MG Oral Tablet (Lasix)Indications: Chronic systolic heart failure (HCC),Paroxysmal atrial fibrillation (HCC),Chronic 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),NICM (nonischemic cardiomyopathy) (HCC),Chronic atrial fibrillation (HCC),Hospital discharge follow-up,Presence of Watchman left atrial appendage closure device TAKE 1 TABLET BY MOUTH IN THE MORNING, AND 1/2 TABLET IN THE EVENING 135 Tablet 3 2 06/25/20 22 Discontinue d(Medicatio n/Dose Changed) documented as of this encounter (statuses as of 07/11/2022) Active Problems Problem Noted Date Ischemic colitis [...] as of this encounter (statuses as of 07/11/2022) Resolved Problems Problem Noted Date Resolved Date [...] Hypoxemia 10/08/2011 10/30/2015 Genetic Sleep Disorder Research Other*[id number] 07/25/2011 05/15/2016 COPD, moderate 07/19/2011 07/28/2019 Overview: [...] as of this encounter (statuses as of 07/11/2022) Immunizations Name Administration Dates Next Due COVID-19 mRNA, LNP-s, No Pre serve, 2-Dose Series ([employer]) 08/21/2021,12/22/2020,2020 COVID-19, LNP-s, No Preserve , Tyler-sucrose, [...] Telephone Encounter - Chantel Miranda LPN - 06/20/2022 10:26 AM EDT Patient returned call. Informed of message. Verbalized understanding. * Telephone Encounter - Angelina Linder LPN - 06/20/2022 8:20 AM EDT Attempted to contact Nieves, left a voice mail with the labs needed, but to call back with further questions. Faxed orders with confirmation it was received * Telephone Encounter - Marcela Pinto MD - 06/20/2022 7:00 AM EDT Noted. Lets get labs as just signed. Please inform so they can draw on 06/21. * Telephone Encounter - Angelina Linder LPN - 06/19/2022 8:55 AM EDT Nieves APPIAH from [facility] with an update. Seeing patient currently. Weight 221lb -stable. Edema bilateral lower extremities, pitting edema of pedal, ankle, calf. Worse than on 06/14 Lungs clear, no cough. Still looks pale BP 90/58 sitting SP O2 96% 2lpm T 97 HR 83 Still complaining of nausea, appetite is poor. Taking Zofran and/or promethazine for Zofran. Takes Lasix 60mg daily. No acute distress. Nieves sees patient again on 06/21, she can get lab work if you'd like. Patient is scheduled for 06/[address] Pinto. Please advise. * Telephone Encounter - Nicole Saeed LPN - 06/14/2022 2:21 PM EDT Nieves calling from [facility]. Patient is home. Opened up today for nursing, PT and OT. Hasan abscess in her abdomen. Complaining of nausea all the time. On zofran and Promethazine. Is on anantibiotic. Cipro. Very nauseated. Said she takes one or two zofran and up to 2 of the promethazinea day. Zofran helps more than anything. Blood pressure is low. 92/60. Denies dizziness. Did not do standing blood pressure because patient had to run to the bathroom. Rest of the vitals good. Said she is unable to bring them up and give them to us because of her computer. Patient is not drinking a whole lot, not eating a whole lot. Looks pale. Eating a lot of jello. Nothing smelling good or tasting good other than the jello. documented in this encounter Plan of Treatment Upcoming Encounters Date Type Specialty Care Team Description 07/15/2022 Office Visit [facility]iology [facility] [address] [facility] [place] [address] 08/05/2022 Telemedicine Hematology Oncology Ida Cueva CRNP [address] [place] [address] [place] [address] 09/12/2022 Office Visit General Surgery Dionte Snyder MD [address] [place] [address] 10/08/2022 Office Visit Orthopedics Eliezer Gifford, DO [address] [place] [address] 10/10/2022 Office Visit Internal Medicine Marcela Pinto MD [address] [place] [address] 01/03/2023 Office Visit Cardiology Hammad Lopez, DO [address] [place] [address] Pending Results Name Type Priority Associated Diagnoses Date /Time BNP (NT-PROBNP) Lab STAT Pitting edema 07/11/2022 2:15 PM EDT COMPREHENSIVE METABOLIC PANEL Lab Routine Pitting edema Abdominal pain, left lower quadrant 07/11/2022 2:15 PM EDT CBC WITH WBC DIFFERENTIAL Lab Routine SOB (shortness of breath) Abdominal pain, left lower quadrant 07/11/2022 2:15 PM EDT LIPASE Lab Routine Abdominal pain, left lower quadrant 07/11/2022 2:15 PM EDT Scheduled Orders Name Type Priority Associated Diagnoses Orde r Schedule COMPREHENSIVE METABOLIC PANEL Lab Routine Pitting edema Abdominal pain, left lower quadrant Expected: 06/20/2022 (Approximate), Expires: 06/20/2023 CBC WITH WBC DIFFERENTIAL Lab Routine SOB (shortness of breath) Abdominal pain, left lower quadrant Expected: 06/20/2022 (Approximate), Expires: 06/20/2023 LIPASE Lab Routine Abdominal pain, left lower quadrant Expected: 06/20/2022 (Approximate), Expires: 06/20/2023 Health Maintenance Due Date Last Done Comments [...] Additional history exists GFR - Renal Function 12/25/2022 06/27/2022, 06/21/2022, 06/10/2022, Additional history exists Alb / Creat Ratio 02/19/2023 02/19/2022, , 07/27/2018, Additional history exists CKD PHOS USE SMARTSET 39747 02/19/202302/10, 03/09/2021, 03/22/2019 DIABETES-EYE EXAM 03/08/2023 03/08/2022, , 08/07/2020, Additional history exists CKD HGB USE SMARTSET 23747 06/21/202306/21, 06/10/2022, 06/10/2022, Additional history exists O2 ASSESSMENT COMPLETED IN [...] as of this encounter Visit Diagnoses Diagnosis Pitting edema- Primary Edema SOB (shortness of breath) Shortness of breath Abdominal pain, left lower quadrant documented in this encounter Advance Directives Documents on File Type Date Recorded 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
--- OUTSIDE RECORDS SUMMARY | 2023-06-18 02:42 | External Medical Summary ---
Author Name Unknown Address Unknown Organization K0G:LAB[facility]ATORY [phone] - [address] [place] [address] Laboratory Report Ordering Provider Test Date Status BUZZ VO 07/15/2022 12:03:02 Final Observation Date Value Abnormality Reference (Units ) Status BUN 07/15/2022 12:03:02 15 6-20 (mg/dL) Final Creatinine 07/15/2022 12:03:02 0.9 0.5-1.0 (mg/dL) Final Glomerular filtration rate/1.73 sq M.predicted [Volume Rate/Area] in Serum, Plasma or Blood by Creatinine-based formula (CKD-EPI) 07/15/2022 12:03:02 61 >=60 (mL/min) Final Performing Location LABORATORY [phone] - [address] [place] [address]
--- OUTSIDE RECORDS SUMMARY | 2023-06-18 02:42 | External Medical Summary | Summary of Care ---
Author Name Unknown Organization [place] [address] Care Team Providers Care Senior Teller Name Role Phone Marcela Pinto MD Primary Care Provider + Reason for Visit * Reason Comments Outpatient Testing Encounter Details Date Type Department Care Team Description 07/15/2022 Laboratory Laboratory, [facility] [address] [facility] 132 [place] [address] Chronic systolic heart failure (HCC) Allergies Active Allergy Reactions Severity Noted Date Comments Valsartan 07/10/2010 Enalapril 05/21/2006 Escitalopram Oxalate Nausea/vomiting 10/11/2009 Nauseated Iodinated Diagnostic Agents Nausea/vomiting 05/2010 IV Contrast Iodine Hives 12/18/2009 IV Contrast Metoprolol Tartrate 11/18/2006 Made pulse low [place] Oil-Black Currant-Vit E 07/10/2010 Verapamil 03/21/2004 Bupropion Hcl 10/30/2009 Makes pt sick in the stomach documented as of this encounter (statuses as of 07/15/2022) Medications Medication Sig Dispensed Refills Start Date [...] Asthma with severity to be determined,COPD, moderate ([facility]) USE ONE NEBULIZER TREATMENT TWICE A DAY DIRECTED FOR WORSENING ASTHMA. J45.909, J44.9 225 mL 1 06/29/2019 Active Albuterol Sulfate (VENTOLIN HFA) 108 (90 Base) MCG/ACT AERS Inhale 2 Puffs by mouth 2 times a day. 0 12/27/2019 Active Lancets MISCIndications:Type 2 diabetes mellitus with hemoglobin A1c goal of less than 7.0% ([facility]) Use as directed. USE TO TEST [...] fraction and diastolic dysfunction (HCC),NICM (nonischemic cardiomyopathy) ([facility]),Presence of Watchman left atrial appendage closure device Take 1 tab in the morning and 1/2 tab in the evening. 135 Tablet 3 10/04/2021 Active Spiriva Respimat 1.25 MCG/ACT Inhalation Aerosol Solution (Tiotropium [place] Monohydrate) Inhale by mouth 2 Puffs daily [...] :Asthma with severity to be determined,COPD, moderate ([facility] [...] as of this encounter (statuses as of 07/15/2022) Active Problems Problem Noted Date Ischemic colitis [...] as of this encounter (statuses as of 07/15/2022) Resolved Problems Problem Noted Date Resolved Date [...] Hypoxemia 10/08/2011 10/30/2015 Genetic Sleep Disorder Research Other*[id number] 07/25/2011 05/15/2016 COPD, moderate 07/19/2011 07/28/2019 Overview: [...] as of this encounter (statuses as of 07/15/2022) Immunizations Name Administration Dates Next Due COVID-19 mRNA, LNP-s, No Pre serve, 2-Dose Series ([employer]) 08/21/2021,12/22/2020,2020 COVID-19, LNP-s, No Preserve , Tyler-sucrose, [...] as of this encounter Miscellaneous Notes * Result QuickNote - NIECY Holder - 07/15/2022 2:27 PM EDT Renal function electrolytes stable. Okay to continue Lasix as ordered. documented in this encounter Plan of Treatment Upcoming Encounters Date Type Specialty Care Team Description 08/05/2022 Telemedicine Hematology Oncology Ida Cueva CRNP [address] [facility] [place] [id number] 09/12/2022 Office Visit General Surgery Dionte Snyder MD [address] [place] [address] 10/08/2022 Office Visit Orthopedics Eliezer Gifford, DO [address] [facility] [place] [place] [address] 10/10/2022 Office Visit Internal Medicine Marcela Pinto MD [address] [facility], [place] [id number] 01/03/2023 Office Visit Cardiology Hammad Lopez, DO [address] [place] [address] Health Maintenance Due Date Last Done Comments [...] Additional history exists CKD PHOS USE SMARTSET 05161 02/19/202302/10, 03/09/2021, 03/22/2019 DIABETES-EYE EXAM 03/08/2023 03/08/2022, , 08/07/2020, Additional history exists CKD HGB USE SMARTSET 29855 07/11/202307/11, 07/11/2022, 06/21/2022, Additional history exists O2 [...] Associated Diagnosis Comments BASIC METABOLIC PANEL Routine 07/15/2022 12:03 PM EDT Chronic systolic heart failure (HCC) documented in this encounter Results * BASIC METABOLIC PANEL (07/15/2022 12:03 PM EDT) BUN 15 6 - 20 mg/dL [facility] Creatinine 0.9 0.5 - 1.0 mg/dL [facility] Estimated Glomerular Filtration Rate 61Comment:eGFR is calculated based on the CKD-EPI 2020 equation >=60 mL/min [facility] Sodium 140 135 - 146 mmol/L [facility] Potassium 4.1 3.5 - 5.1 mmol/L [facility] Chloride 98 98 - 107 mmol/L [facility] CO2 27 22 - 32 mmol/L [facility] Anion Gap 15 7 - 15 mmol/L [facility] Glucose 113 70 - 120 mg/dL [facility] Calcium 9.2 8.4 - 10.2 mg/dL [facility] Specimen Blood - Venous blood specime n (specimen) Performing Organization Address City/State/[facility] Co de Phone Number [phone] [place], [place] [address] documented in this encounter Visit Diagnoses Diagnosis Chronic systolic heart failure (HCC) Chronic systolic heart failure documented in this encounter Advance Directives Documents on File Type Date Recorded Patient Director Student Union Expl anation Advanced 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 Directives occurred with: Not Discussed Care Teams Senior Teller Relationship Specialty Start Date End Date Marcela Pinto MD [address] [place] [address] PCP - General Internal Medicine 08/04/14 documented as of this encounter
--- OUTSIDE RECORDS SUMMARY | 2023-06-18 02:42 | External Medical Summary | Summary of Care ---
Author Name Unknown Organization [place] [address] Care Team Providers Care Replanter Name Role Phone Marcela Pinto MD Primary Care Provider + Reason for Visit * Reason Comments Outpatient Testing Encounter Details Date Type Department Care Team Description 07/15/2022 Laboratory Laboratory, [facility] [address] [facility] 132 [facility] [place] [address] Chronic systolic heart failure (HCC) Allergies Active Allergy Reactions Severity Noted Date Comments Valsartan 07/10/2010 Enalapril 05/21/2006 Escitalopram Oxalate Nausea/vomiting 10/11/2009 Nauseated Iodinated Diagnostic Agents Nausea/vomiting 05/2010 IV Contrast Iodine Hives 12/18/2009 IV Contrast Metoprolol Tartrate 11/18/2006 Made pulse low [place] Oil-Black Currant-Vit E 07/10/2010 Verapamil 03/21/2004 Bupropion [...] fraction and diastolic dysfunction (HCC),NICM (nonischemic cardiomyopathy) ([facility]),Presence of Watchman left atrial appendage closure device Take 1 tab in the morning and 1/2 tab in the evening. 135 Tablet 3 10/04/2021 Active Spiriva Respimat 1.25 MCG/ACT Inhalation Aerosol Solution (Tiotropium [place] Monohydrate) Inhale by mouth 2 Puffs daily [...] :Asthma with severity to be determined,COPD, moderate ([facility]) TAKE 1 PUFF BY MOUTH 4 TIMES [...] Hypoxemia 10/08/2011 10/30/2015 Genetic Sleep Disorder Research Other*[id number] 07/25/2011 05/15/2016 COPD, moderate 07/19/2011 07/28/2019 Overview: [...] mRNA, LNP-s, No Pre serve, 2-Dose Series ([employer]) 08/21/2021,12/22/2020,2020 COVID-19, LNP-s, No Preserve , Tyler-sucrose, [...] Oncology [facility] [place] [address] 09/12/2022 Office Visit General Surgery Dionte Snyder MD [address] [place] [address] 10/08/2022 Office Visit Orthopedics Eliezer Gifford, DO [address] [place] [address] 10/10/2022 Office Visit Internal Medicine Marcela Pinto MD [address] [place] [address] 01/03/2023 Office Visit Cardiology Hammad Lopez, DO [address] [place] [address] Pending Results Name Type Priority Associated Diagnoses Date /Time BASIC METABOLIC PANEL Lab Routine Chronic systolic heart failure (HCC) 07/15/2022 12:03 PM EDT Health Maintenance Due Date Last [...] Additional history exists GFR - Renal Function 01/08/2023 07/11/2022, 06/27/2022, 06/21/2022, Additional history exists Alb / Creat Ratio 02/19/2023 02/19/2022, , 07/27/2018, Additional history exists CKD PHOS USE SMARTSET 20455 02/19/202302/10, 03/09/2021, 03/22/2019 DIABETES-EYE EXAM 03/08/2023 03/08/2022, , 08/07/2020, Additional history exists CKD HGB USE SMARTSET 11313 07/11/202307/11, 07/11/2022, 06/21/2022, Additional history exists O2 [...] Documents on File Type Date Recorded Patient Wildlife Manager Expl 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 Directives occurred with: Not Discussed Care Teams Replanter Relationship Specialty Start Date End Date Marcela Pinto MD [address] [place] [address] PCP - General Internal Medicine 08/04/14 documented as of this encounter
--- OUTSIDE RECORDS SUMMARY | 2023-06-18 02:42 | External Medical Summary | Summary of Care ---
Author Name Unknown Organization [place] [address] Care Team Providers Care Information Systems Operator Name Role Phone Marcela Pinto MD Primary Care Provider + Reason for Visit * Reason Comments Outpatient Testing Encounter Details Date Type Department Care Team Description 07/11/2022 Laboratory Laboratory [facility] [address] [place] [address] [facility] Scenery [address] [place] [address] Pitting edema; Abdominal pain, left lower quadrant; SOB (shortness of breath); Iron deficiency anemia, unspecified iron deficiency anemia type; Iron deficiency anemia due to chronic blood loss; Diverticulitis of colon; Chronic kidney disease, stage 3a (HCC); Thrombocytosis; Encounter for long-term (current) use of medications Allergies Active Allergy Reactions Severity Noted Date Comments Valsartan 07/10/2010 Enalapril 05/21/2006 Escitalopram Oxalate Nausea/vomiting 10/11/2009 Nauseated Iodinated Diagnostic Agents Nausea/vomiting 05/2010 IV Contrast Iodine Hives 12/18/2009 IV Contrast Metoprolol Tartrate 11/18/2006 Made pulse low [place] Oil-Black Currant-Vit E 07/10/2010 Verapamil 03/21/2004 Bupropion [...] to be determined,COPD, moderate ([facility]) USE ONE NEBULIZER TREATMENT TWICE A [...] Respimat 1.25 MCG/ACT Inhalation Aerosol Solution (Tiotropium [place] Monohydrate) Inhale by mouth 2 Puffs daily . 0 Active Lisinopril 2.5 MG Oral Tablet (Prinivil)Indication s:Paroxysmal atrial fibrillation (HCC),Chronic systolic heart failure (HCC) Take by mouth 1 Tablet in the morning. 90 Tablet 3 11/12/2021 Active Ketoconazole 2 % External Cream APPLY TO GROIN AREA TWICE A DAY 60 g 11 12/26/2021 Active Spironolactone 25 MG Oral Tablet (Aldactone) [...] BREAKFAST 90 Tablet 1 02/07/2022 Active OneTouch Vermichelle In Vitro Strip (Glucose Blood) Checks [...] Hypoxemia 10/08/2011 10/30/2015 Genetic Sleep Disorder Research Other*[id number] 07/25/2011 05/15/2016 COPD, moderate 07/19/2011 07/28/2019 Overview: [...] mRNA, LNP-s, No Pre serve, 2-Dose Series ([email or web address]) 08/21/2021,12/22/2020,2020 COVID-19, LNP-s, No Preserve , Tyler-sucrose, [...] Office Visit Cardiology Dulce Merino CRNP 132 [facility] [place] [address] 08/05/2022 Telemedicine Hematology Oncology [facility] [address] 09/12/2022 Office Visit General Surgery Dionte Snyder MD [address] [place] [address] 10/08/2022 Office Visit Orthopedics Eliezer Gifford, DO [facility] [address] 10/10/2022 Office Visit Internal Medicine Marcela Pinto MD [address] [facility] [place] [address] 01/03/2023 Office Visit Cardiology Hammad Lopez, DO [address] [facility] [address] Pending Results Name Type Priority Associated Diagnoses Date /Time COMPREHENSIVE METABOLIC PANEL Lab Routine Pitting edema Abdominal pain, left lower quadrant 07/11/2022 2:15 PM EDT CBC WITH WBC DIFFERENTIAL Lab Routine SOB (shortness of breath) Abdominal pain, left lower quadrant 07/11/2022 2:15 PM EDT LIPASE Lab Routine Abdominal pain, left lower quadrant 07/11/2022 2:15 PM EDT FERRITIN Lab Routine Iron deficiency anemia, unspecified iron deficiency anemia type 07/11/2022 2:15 PM EDT IRON SCREEN, INCLUDING TIBC Lab Routine Iron deficiency anemia, unspecified iron deficiency anemia type 07/11/2022 2:15 PM EDT BLOOD SMEAR INTERPRETATION BY PATHOLOGIST Lab Routine Iron deficiency anemia due to chronic blood loss Diverticulitis of colon Chronic kidney disease, stage 3a (HCC) Thrombocytosis Encounter for long-term (current) use of medications 07/11/2022 2:15 PM EDT RETICULOCYTE PANEL Lab Routine Iron deficiency anemia due to chronic blood loss Diverticulitis of colon Chronic kidney disease, stage 3a (HCC) Thrombocytosis Encounter for long-term (current) use of medications 07/11/2022 2:15 PM EDT LD Lab Routine Iron deficiency anemia due to chronic blood loss Diverticulitis of colon Chronic kidney disease, stage 3a (HCC) Thrombocytosis Encounter for long-term (current) use of medications 07/11/2022 2:15 PM EDT VITAMIN B12 Lab Routine Iron deficiency anemia due to chronic blood loss Diverticulitis of colon Chronic kidney disease, stage 3a (HCC) Thrombocytosis Encounter for long-term (current) use of medications 07/11/2022 2:15 PM EDT FOLIC ACID Lab Routine Iron deficiency anemia due to chronic blood loss Diverticulitis of colon Chronic kidney disease, stage 3a (HCC) Thrombocytosis Encounter for long-term (current) use of medications 07/11/2022 2:15 PM EDT CRP (INFLAMMATORY MARKER) Lab Routine Iron deficiency anemia due to chronic blood loss Diverticulitis of colon Chronic kidney disease, stage 3a (HCC) Thrombocytosis Encounter for long-term (current) use of medications 07/11/2022 2:15 PM EDT ERYTHROCYTE SEDIMENTATION RATE (ESR) Lab Routine Iron deficiency anemia due to chronic blood loss Diverticulitis of colon Chronic kidney disease, stage 3a (HCC) Thrombocytosis Encounter for long-term (current) use of medications 07/11/2022 2:15 PM EDT SOLUBLE TRANSFERRIN RECEPTOR Lab Routine Iron deficiency anemia due to chronic blood loss Diverticulitis of colon Chronic kidney disease, stage 3a (HCC) Thrombocytosis Encounter for long-term (current) use of medications 07/11/2022 2:15 PM EDT CBC Lab Routine SOB (shortness of breath) Abdominal pain, left lower quadrant 07/11/2022 2:15 PM EDT DIFFERENTIAL, AUTOMATED Lab Routine SOB (shortness of breath) Abdominal pain, left lower quadrant 07/11/2022 2:15 PM EDT BLOOD SMEAR INTERPRETATION BY PATHOLOGIST Lab Routine Iron deficiency anemia due to chronic blood loss Diverticulitis of colon Chronic kidney disease, stage 3a (HCC) Thrombocytosis Encounter for long-term (current) use of medications 07/11/2022 2:15 PM EDT Health Maintenance Due Date Last [...] Additional history exists CKD PHOS USE SMARTSET 42603 02/19/202302/10, 03/09/2021, 03/22/2019 DIABETES-EYE EXAM 03/08/2023 03/08/2022, , 08/07/2020, Additional history exists CKD HGB USE SMARTSET 86895 06/21/202306/21, 06/10/2022, 06/10/2022, Additional history exists O2 [...] of this encounter Visit Diagnoses Diagnosis Pitting edema Edema Abdominal pain, left lower quadrant SOB (shortness of breath) Shortness of breath Iron deficiency anemia, unspecified iron deficiency anemia type Iron deficiency anemia due to chronic blood loss Iron deficiency anemia secondary to blood loss (chronic) Diverticulitis of colon Diverticulitis of colon (without mention of hemorrhage) Chronic kidney disease, stage 3a (HCC) Thrombocytosis Essential thrombocythemia Encounter for long-term (current) use of medications Encounter for long-term (current) use of other medications documented in this encounter Advance Directives Documents on File Type Date Recorded Patient Pitch Filler Expl anation Advanced 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 Directives occurred with: Not Discussed Care Teams Information Systems Operator Relationship Specialty Start Date End Date Marcela Pinto MD 200 [facility], [place] [id number] PCP - General Internal Medicine 08/04/14 documented as of this encounter
--- OUTSIDE RECORDS SUMMARY | 2023-06-18 02:42 | External Medical Summary | Summary of Care ---
Author Name Unknown Organization [place] [address] Care Team Providers Care Patient Relations Specialist Name Role Phone Marcela Pinto MD Primary Care Provider + Reason for Visit * Reason Onset Date Comments Advice 07/17/2022 Encounter Details Date Type Department Care Team Description 07/17/2022 Telephone General Internal Medicine [facility] 200 [facility] [place] [address] Marcela Pinto MD [address] [place] [address] Advice Allergies Active Allergy Reactions Severity Noted Date Comments Valsartan 07/10/2010 Enalapril 05/21/2006 Escitalopram Oxalate Nausea/vomiting 10/11/2009 Nauseated Iodinated Diagnostic Agents Nausea/vomiting 05/2010 IV Contrast Iodine Hives 12/18/2009 IV Contrast Metoprolol Tartrate 11/18/2006 Made pulse low [place] Oil-Black Currant-Vit E 07/10/2010 Verapamil 03/21/2004 Bupropion Hcl 10/30/2009 Makes pt sick in the stomach documented as of this encounter (statuses as of 07/17/2022) Medications Medication Sig Dispensed Refills Start Date [...] with severity to be determined,COPD, moderate ([facility]) USE ONE NEBULIZER TREATMENT TWICE A DAY DIRECTED FOR WORSENING ASTHMA. J45.909, J44.9 225 mL 1 06/29/2019 Active Albuterol Sulfate (VENTOLIN HFA) 108 (90 Base) MCG/ACT AERS Inhale 2 Puffs by mouth 2 times a day. 0 12/27/2019 Active Lancets MISCIndications:Type 2 diabetes mellitus with hemoglobin A1c goal of less than 7.0% ([facility]) Use as directed. USE TO TEST [...] Respimat 1.25 MCG/ACT Inhalation Aerosol Solution (Tiotropium [place] Monohydrate) Inhale by mouth 2 Puffs daily [...] with severity to be determined,COPD, moderate ([facility]) TAKE 1 PUFF BY MOUTH 4 [...] as of this encounter (statuses as of 07/17/2022) Active Problems Problem Noted Date Ischemic colitis [...] as of this encounter (statuses as of 07/17/2022) Resolved Problems Problem Noted Date Resolved Date [...] Hypoxemia 10/08/2011 10/30/2015 Genetic Sleep Disorder Research Other*[id number] 07/25/2011 05/15/2016 COPD, moderate 07/19/2011 07/28/2019 Overview: [...] as of this encounter (statuses as of 07/17/2022) Immunizations Name Administration Dates Next Due COVID-19 mRNA, LNP-s, No Pre serve, 2-Dose Series ([employer]) 08/21/2021,12/22/2020,2020 COVID-19, LNP-s, No Preserve , Tyler-sucrose, [...] Miscellaneous Notes * Telephone Encounter - Cari Porter PA-C - 07/17/2022 12:43 PM EDT Agree with below * Telephone Encounter - Pascale Burns LPN - 07/17/2022 10:37 AM EDT Spoke with Trinidad re: pt. Consulted Cari Porter PA-C as Dr. Pinto is out, who stated sending to ER would be appropriate. Informed Trinidad, who stated that she'd inform pt. * Telephone Encounter - Trinidad Dempsey LPN - 07/17/2022 10:24 AM EDT Pt calling and states that she has diverticulitis and has had this for a long time. States that since last night around 8-9 PM started bleeding dark red blood via rectum and not occurring with BM's. Has quite a bit of dark red blood seeping from rectum on a pad that she is wearing. Denies fever and dizziness. Left lower side is hurting and rates pain a 6/10. Just took Tylenol, so pain isn't as it was. Was previously 8/10. Has been feeling nauseated all week. Is asking if she should go to the ED? Called PCP office and spoke with Pascale, whom spoke Cari Porter PA-C and advised ED. Pt aware and will comply. documented in this encounter Plan of Treatment Upcoming Encounters Date Type Specialty Care Team Description 08/05/2022 Telemedicine Hematology Oncology Ida Cueva CRNP [address] [place] [address] 09/12/2022 Office Visit General Surgery Dionte Snyder MD [address] [place] [address] 10/08/2022 Office Visit Orthopedics Eliezer Gifford, [facility] [place] [address] 10/10/2022 Office Visit Internal Medicine [facility] [address] [facility] [address] 01/03/2023 Office Visit Cardiology Hammad Lopez, DO 132 [facility] [place] [address] Health Maintenance Due Date Last Done Comments [...] Additional history exists CKD PHOS USE SMARTSET 47155 02/19/202302/10, 03/09/2021, 03/22/2019 DIABETES-EYE EXAM 03/08/2023 03/08/2022, , 08/07/2020, Additional history exists CKD HGB USE SMARTSET 61399 07/11/202307/11, 07/11/2022, 06/21/2022, Additional history exists O2 [...] Documents on File Type Date Recorded Patient Felt Tipping Machine Tender Expl anation Advanced 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 Directives occurred with: Not Discussed Care Teams Patient Relations Specialist Relationship Specialty Start Date End Date Marcela Pinto MD 200 [place] [address] PCP - General Internal Medicine 08/04/14 documented as of this encounter
--- OUTSIDE RECORDS SUMMARY | 2023-06-18 02:42 | External Medical Summary ---
Author Name Unknown Address Unknown Organization : Laboratory Report Ordering Provider Test Date Status ERON CURRIE 07/11/2022 14:15:00 Final Observation Date Value Abnormality Reference (Units ) Status Transferrin receptor.soluble [Mass/volume] in Serum or Plasma 07/11/2022 14:15:00 1.36 0.76-1.76 (mg/L) Final Performing Location
--- OUTSIDE RECORDS SUMMARY | 2023-06-18 02:42 | External Medical Summary ---
Author Name Unknown Address Unknown Organization K01:[facility] [place] [address] [facility] [address] Laboratory Report Ordering Provider Test Date Status JOSE A JOHNSON 07/11/2022 14:15:01 Final Observation Date Value Abnormality Reference (Units ) Status WBC, Total 07/11/2022 14:15:01 18.94 Above high normal 4.00-10.80 (K/uL) Final RBC 07/11/2022 14:15:01 3.45 3.85-5.15 (M/uL) Final Hemoglobin 07/11/2022 14:15:01 9.6 Below low normal 12.0-15.3 (g/dL) Final HCT 07/11/2022 14:15:01 31.6 Below low normal 36.0-45.2 (%) Final MCV 07/11/2022 14:15:01 91.6 81.5-97.5 (fL) Final MCH 07/11/2022 14:15:01 27.8 27.0-34.0 (pg) Final MCHC 07/11/2022 14:15:01 30.4 32.0-36.0 (g/dL) Final RDW 07/11/2022 14:15:01 17.0 11.5-15.5 (%) Final Platelets 07/11/2022 14:15:01 369 140-400 (K/uL) Final MPV 07/11/2022 14:15:01 10.1 6.6-11.1 (fL) Final Nucleated erythrocytes/100 leukocytes [Ratio] in Blood by Automated count 07/11/2022 14:15:01 0 <=0 (/100 WBCs) Final Performing Location [facility] - [facility] [place] [place] [address]
--- OUTSIDE RECORDS SUMMARY | 2023-06-18 02:42 | External Medical Summary | Summary of Care ---
Author Name Unknown Organization [place] [address] Care Team Providers Care Pad Tufter Name Role Phone Marcela Pinto MD Primary Care Provider + Encounter Details Date Type Department Care Team Description 07/18/2022 Scan Encounter Infectious Disease, [facility] [address] [place] [address] Dhruv Sen II, [address] [place] [address] <No scans attached> Allergies Active Allergy Reactions Severity Noted Date Comments Valsartan 07/10/2010 Enalapril 05/21/2006 Escitalopram Oxalate Nausea/vomiting 10/11/2009 Nauseated Iodinated Diagnostic Agents Nausea/vomiting 05/2010 IV Contrast Iodine Hives 12/18/2009 IV Contrast Metoprolol Tartrate 11/18/2006 Made pulse low [place] Oil-Black Currant-Vit E 07/10/2010 Verapamil 03/21/2004 Bupropion [...] with severity to be determined,COPD, moderate ([facility]) USE ONE NEBULIZER TREATMENT TWICE A DAY DIRECTED FOR WORSENING ASTHMA. J45.909, J44.9 225 mL 1 06/29/2019 Active Albuterol Sulfate (VENTOLIN HFA) 108 (90 Base) MCG/ACT AERS Inhale 2 Puffs by mouth 2 times a day. 0 12/27/2019 Active Lancets MISCIndications:Type 2 diabetes mellitus with hemoglobin A1c goal of less than 7.0% ([facility]) Use as directed. USE TO [...] reduced ejection fraction and diastolic dysfunction ([facility]),NICM (nonischemic cardiomyopathy) (HCC),Presence of Watchman left atrial appendage closure device Take 1 tab in the morning and 1/2 tab in the evening. 135 Tablet 3 10/04/2021 Active Spiriva Respimat 1.25 MCG/ACT Inhalation Aerosol Solution (Tiotropium [place] Monohydrate) Inhale by mouth 2 Puffs daily [...] Hypoxemia 10/08/2011 10/30/2015 Genetic Sleep Disorder Research Other*[id number] 07/25/2011 05/15/2016 COPD, moderate 07/19/2011 07/28/2019 Overview: [...] mRNA, LNP-s, No Pre serve, 2-Dose Series (Table8) 08/21/2021,12/22/2020,2020 COVID-19, LNP-s, No Preserve , Tyler-sucrose, [...] Telemedicine Hematology Oncology Ida Cueva CRNP [address] [place] [address] 09/12/2022 Office Visit General Surgery Dionte Snyder MD [address] [facility] [place] [address] 10/08/2022 Office Visit Orthopedics Eliezer Gifford, DO [address] [place] [address] 10/10/2022 Office Visit Internal Medicine Marcela Pinto MD [address] [facility] [place] [address] 01/03/2023 Office Visit Cardiology Hammad Lopez, DO [address] [place] [address] Health Maintenance Due Date Last Done Comments [...] Additional history exists CKD PHOS USE SMARTSET 95329 02/19/202302/10, 03/09/2021, 03/22/2019 DIABETES-EYE EXAM 03/08/2023 03/08/2022, , 08/07/2020, Additional history exists CKD HGB USE SMARTSET 23758 07/11/202307/11, 07/11/2022, 06/21/2022, Additional history exists O2 [...] Documents on File Type Date Recorded Patient Licensed Occupational Therapy Assistant Expl anation Advanced 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 Directives occurred with: Not Discussed Care Teams Pad Tufter Relationship Specialty Start Date End Date Marcela Pinto MD [address] [place] [address] PCP - General Internal Medicine 08/04/14 documented as of this encounter
--- OUTSIDE RECORDS SUMMARY | 2023-06-18 02:42 | External Medical Summary ---
Author Name Unknown Address Unknown Organization K01:[facility] [place] - [address] [facility] [address] Laboratory Report Ordering Provider Test Date Status JOSE A JOHNSON 07/11/2022 14:15:01 Final Observation Date Value Abnormality Reference (Units ) Status Lipase 07/11/2022 14:15:01 8 Below low normal 13- 60 (U/L) Final Performing Location LABORATORY [facility] - [address] [facility] [address]
--- OUTSIDE RECORDS SUMMARY | 2023-06-18 02:42 | External Medical Summary | Summary of Care ---
Author Name Unknown Organization [place] [address] Care Team Providers Care Services Host Name Role Phone Marcela Pinto MD Primary Care Provider + Reason for Visit * Reason Comments Pre-op Clearance * Evaluate & Treat - Unlimited Visits (Within 10 days (routine)) - Authorized Specialty Diagnoses / Procedures Referred By Contact Referred To Contact Cardiovascular Medicine / Cardiology Diagnoses Diverticulitis of sigmoid colon Teresita Padron PA-C [address] [place] [address] Referral ID Status Reason Start Date Expiration Date Visits Requested Visits Authorized [id number] Authorized Specialty Services Required 07/08/[phone] Encounter Details Date Type Department Care Team Description 07/15/2022 Office Visit Cardiology, [facility] [address] [facility] [place] [address] Dulce Merino CRNP [address] [place] [address] Chronic systolic heart failure (HCC)* Allergies Active Allergy Reactions Severity Noted Date Comments Valsartan 07/10/2010 Enalapril 05/21/2006 Escitalopram Oxalate Nausea/vomiting 10/11/2009 Nauseated Iodinated Diagnostic Agents Nausea/vomiting 05/2010 IV Contrast Iodine Hives 12/18/2009 IV Contrast Metoprolol Tartrate 11/18/2006 Made pulse low [place] Oil-Black Currant-Vit E 07/10/2010 Verapamil 03/21/2004 Bupropion [...] hemoglobin A1c goal of less than 7.0% ([facility]) Use as directed. USE TO [...] Respimat 1.25 MCG/ACT Inhalation Aerosol Solution (Tiotropium [place] Monohydrate) Inhale by mouth 2 Puffs daily [...] remission 01/09/2021 03/05/2021 Asthma, mild persistent 01/09/2021 05/24/20 21 Asthma, moderate persistent 01/09/2021 05/2 01/2021 [...] Hypoxemia 10/08/2011 10/30/2015 Genetic Sleep Disorder Research Other*[id number] 07/25/2011 05/15/2016 COPD, moderate 07/19/2011 07/28/2019 Overview: [...] mRNA, LNP-s, No Pre serve, 2-Dose Series (Vionic) 08/21/2021,12/22/2020,2020 COVID-19, LNP-s, No Preserve , Tyler-sucrose, [...] Sign Reading Time Taken Comments Blood Pressure 126/64 07/15/2022 11:26 AM EDT Pulse 72 07/15/2022 11:26 AM EDT irre gular Temperature 36.2 C (97.2 F) 07/15/2022 11:26 AM E DT Respiratory Rate 16 07/15/2022 11:26 AM EDT Oxygen Saturation - - Inhaled Oxygen Concentration - - Weight 96.6 kg (213 lb) 07/15/2022 11:26 AM EDT Height - - Body Mass Index 35.45 06/06/2022 4:26 PM EDT documented in this encounter Functional [...] of this encounter Progress Notes * NIECY Holder - 07/15/2022 11:30 AM EDT Cardiology Outpatient Visit 07/15/[address] Lopez Past medical history: 1. Chronic heart failure with reduced ejection fraction, EF 40-45% 02/2021, NYHA class 3 2. Nonischemic cardiomyopathy, cardiac catheterization performed 11/2020 in [place] demonstrated mild nonobstructive CAD 3. Permanent atrial fibrillation, [id number] score of 5 (age 1, female, CHF, hypertension), no ACs/p watchman implant 11/2019 4. Severe oxygen-dependent COPD with chronic hypercapnia 5. Iron deficiency anemia, following with Hematology/Oncology HPI 81-year-old female presenting to the cardiology office today for preoperative cardiovascular risk stratification regarding upcoming colorectal surgery. At the end of May patient was admitted to [facility] due to complicated diverticulitis. She was initially treated with non operative management and did well. Patient was evaluated byDr. Lopez on 06/25 following her admission and was found to be mildly hypervolemic. Furosemide was increased to 40 mg twice daily. She was seen on 07/08 by General surgery in follow-up to discuss possible surgical intervention. Per surgery's last note, she noted passing air when urinating, denied any abdominal pain. Surgical intervention which included laparoscopic/possible open low anterior resection and takedown of colovesical fistula was discussed. She was deemed a high surgical risk given her cardiac history and comorbidities Today the patient presents with her daughter per her usual routine. From a cardiac standpoint she is feeling well. States that since her increase in Lasix her lower extremity edema has completely resolved. She is also noticed a slight improvement in her shortness of breath. She is down approximately 15 lb from her last appointment. States that she does not have a good appetite and she feels nauseous often. She denies any exertional chest pain. No palpitations. No dizziness or syncope. No orthopnea or PND. No fever, chills, cough, hematochezia, melena, or hemoptysis. She states she is compliant with all medications, and offers no side effects. She voices concern regarding the possibility of an upcoming procedure. States that there is "air in her bladder" does notbothersome for her. She denies any pain with urination. Happens intermittently, does not occur eachtime she voids. Current Outpatient Medications Medication Sig Dispense Refill [...] Respimat 1.25 MCG/ACT Inhalation Aerosol Solution (Tiotropium [place] Monohydrate) Inhale by mouth 2 Puffs daily . Lisinopril 2.5 MG Oral Tablet (Prinivil) Take by mouth 1 Tablet in the morning. 90 Tablet 3 Spironolactone 25 MG Oral Tablet [...] by mouth 1 Tablet in the morning. HYDROcodone-Acetaminophen 5-325 MG Oral Tablet Take by [...] 1 Tablet before bedtime. 60 Tablet 6 Lancets [facility] Use as directed. USE TO TEST BLOOD SUGAR 3 TIMES A DAY FOR DIAGNOSIS CODE OF E11.9300 Each 1 Assured Labor Voice System Device Use as directed. Tests three times daily/E11.9 CareSens N Glucose Test In Vitro Strip (Glucose Blood) Test as directed. Tests three times daily Ketoconazole 2 % External Cream APPLY TO GROIN AREA TWICE A DAY (Patient not taking: Reported on 07/15/2022) 60 g 11 OneTouch Verio In Vitro Strip (Glucose Blood) Checks blood sugar 3 times a day. E11.9 DX 100 Strip 5 Zafirlukast 20 MG Oral Tablet (Accolate) TAKE 1 TABLET BY MOUTH EVERY DAY 90 Tablet 3 Promethazine HCl 25 MG Oral Tablet (Phenergan) TAKE 1 TABLET BY MOUTH EVERY 6 HOURS NEEDED FOR NAUSEA 60 Tablet 2 No current facility-administered medications for this visit. Past Medical History: Diagnosis Date ACEI/ARB contraindicated Asthma Carpal tunnel syndrome DM type 2, goal: symptom mgmt (HCC) Generalized osteoarthritis HTN, goal below 140/90 Mixed dyslipidemia Past Surgical History: Procedure Laterality Date APPENDECTOMY W/OTHER PROCEDURE 1960 when removed gall bladder COLONOSCOPY, DIAGNOSTIC (RECTUM) 05/29/2016 poor prep, diverticulosis/inpt [facility] COLONOSCOPY, DIAGNOSTIC (RECTUM) 06/05/2017 diverticulosis, repeat [...] 1960 SIGMOIDOSCOPY, DIAGNOSTIC 04/29/2014 stool in rectum/inpt [facility] SMALL BOWEL ENDOSCOPY, REMOVE FOREIGN BODY mesh from prior hernia surgery, wrapped around small bowel. small bowel surgery 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 Tobacco Use Smoking status: Never Smoker Smokeless tobacco: Never Used Vaping Use Vaping Use: Never used Substance Use Topics Alcohol use: No Drug use: No Review of patient's allergies indicates: Allergen Reactions Diovan [Valsartan] Enalapril Escitalopram Oxalate Nausea/vomiting Nauseated Iodinated Diagnostic Agents Nausea/vomiting IV Contrast Iodine Hives IV Contrast Metoprolol Tartrate Made pulse low [place] Oil-Black Currant-Vit E Verapamil Wellbutrin [Bupropion Hcl] Makes pt sick in the stomach Review of Systems: See HPI for pertinent positives. All others negative, other than those noted in HPI. Physical Exam BP 126/64 (BP Site: Left Arm, BP Position: Sitting, BP Cuff Size: Large) | Pulse 72 Comment: irregular | Temp 36.2 C (97.2 F) (Infrared ) | Resp 16 | Wt 96.6 kg (213 lb) | BMI 35.45 kg/m | BSA 2.1 m General: No acute distress. A+Ox3. HEENT: Normocephalic. Atraumatic. Conjunctiva and sclera clear. NECK: No carotid bruits. No JVD. Carotid upstrokes are brisk. Heart: Irregular rhythm, regular rate. Distant heart sounds. Lungs: Diminished lung sounds bilaterally, no wheezing rhonchi or rales. Abdomen: Normal bowel sounds. Soft. Obese Extremities: Trace nonpitting ankle edema. No clubbing or cyanosis. Pulses: radial=2/4, posterior tibial=2/4, dorsalis pedis = 2/4. NEURO: No focal deficits. PSYCH: Normal. Lab data/imaging study review: [facility] 10/2021 Atrial Fibrillation occurred continuously (100% burden), ranging from 44- 153 bpm (avg of 78 bpm). Isolated VEs were frequent (17.5%, 27364), VE Couplets were rare (<1.0%, 1152), and VE Triplets were rare (<1.0%, 148). Ventricular Bigeminy and Trigeminy were present. The patient is submitted 1 diary entry /event marker which correlated with atrial fibrillation withventricular trigeminy Echo 09/03/2021 The examination is limited quality but adequate for evaluation of the referral indication. The rhythm during the transthoracic echo examination [...] is 44mm Hg. 2D echo report summary [facility] 02/26/21: LV systolic function is mildly reduced. Ejection fraction 40-45% Mild concentric left ventricular hypertrophy. Mild global hypokinesis. Moderate aortic valve sclerosis without stenosis. Mild mitral regurgitation. Impression/Plan: 1. Heart failure with reduced EF, NYHA class 3 2. Nonischemic cardiomyopathy Nonobstructive CAD per cardiac catheterization 11/2020 in [place]. Stable, no angina. EF 40-45% 02/2021. Euvolemic on exam. Weight down 15 lb. Breathing at baseline. Does have severe COPD, oxygen dependent, 2-4 L daily. On max tolerated goal-directed medical therapy. 1. Continue lasix 40 mg twice daily, repeat BMP following this appointment. 2. Continue spironolactone to 12.5 mg every Friday, Friday, Friday 3. Continue metoprolol succinate 25 mg in the morning and 12.5 mg in the evening 4. Continue lisinopril 2.5 mg daily. 3. Permanent Atrial Fibrillation [id number] score of 5 (age 1, female, CHF, hypertension), no AC s/p watchman implant 11/2019. HR in the 70s today in office. 1. Continue metoprolol succinate 25 mg in the morning and 12.5 mg in the evening 4. Dyslipidemia, LDL goal below 70 1. Continue Lipitor 40 mg daily 5. Cardiovascular preoperative risk stratification Patient's risk for [...] to discuss conservative measures versus surgery again. The patient agrees to the above plan and will call with additional questions or concerns. ER with all emergencies advised. Check-out note: Labs today. Keep follow up as schedled. I spent a total of 40 minutes on the date of service in preparation, delivery, and documentation ofthe care provided to Nina Harrington excluding any time spent in the performance of separately billedservices. NIECY Shepard, Department of Cardiology This chart was completed in part utilizing [employer] Speech Voice Recognition Software. Grammatical errors, random word insertions, prounoun errors, and incomplete sentences are an occasional consequence of this system due to software limitations, ambient noise, and hardware issues. Any formal questions or concerns about the content, text, or information contained within the body of this dictation should be directly addressed to the provider for clarification. documented in this encounter Nursing Notes * Darren Mejia RN - 07/15/2022 11:24 AM EDT Examination Room: room 4 Name: Nina Harrington Date of : (1940). Reason for Visit: for pre-op clearance Interim Hospitalization(s): denies Problems/Concerns: denies Chest Pain/SOB: denies C.P. But does wear 02 therapy [facility] Discussed: Not applicable [facility] is a way you can talk to your provider online through e-mail. Would you like to sign up? I can activate it for you? NO INTERNET ACCESS Patient was instructed to not get up [...] Date Type Specialty Care Team Description 07/15/2022 Laboratory Laboratory [place], Lab Connie [address] [place] [address] Chronic systolic heart failure (HCC) 08/05/2022 Telemedicine Hematology Oncology Ida Cueva CRNP [address] [place] [address] 09/12/2022 Office Visit General Surgery Dionte Snyder MD [address] [place] [address] 10/08/2022 Office Visit Orthopedics Eliezer Gifford, DO [address] [place] [address] 10/10/2022 Office Visit Internal Medicine Marcela Pinto MD [address] [place] [address] 01/03/2023 Office Visit Cardiology Hammad Lopez, DO [address] [place] [address] Pending Results Name Type Priority Associated Diagnoses Date /Time BASIC METABOLIC PANEL Lab Routine Chronic systolic heart failure (HCC) 07/15/2022 12:03 PM EDT Scheduled Orders Name Type Priority Associated Diagnoses Orde r Schedule BASIC METABOLIC PANEL Lab Routine Chronic systolic heart failure (HCC) Expected: 07/15/2022, Expires: 07/15/2023 Health Maintenance Due Date Last Done Comments [...] Additional history exists CKD PHOS USE SMARTSET 12694 02/19/202302/10, 03/09/2021, 03/22/2019 DIABETES-EYE EXAM 03/08/2023 03/08/2022, , 08/07/2020, Additional history exists CKD HGB USE SMARTSET 98354 07/11/202307/11, 07/11/2022, 06/21/2022, Additional history exists O2 [...] Visit Diagnoses Diagnosis Chronic systolic heart failure (HCC)- Primary Chronic systolic heart failure Chronic systolic heart failure (HCC) Chronic systolic heart failure documented in this encounter Advance Directives Documents on File Type Date Recorded Patient Safety Director Expl anation Advanced 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 Directives occurred with: Not Discussed Care Teams Services Host Relationship Specialty Start Date End Date Marcela Pinto MD [address] [place] [address] PCP - General Internal Medicine 08/04/14 documented as of this encounter
--- OUTSIDE RECORDS SUMMARY | 2023-06-18 02:43 | External Medical Summary | Summary of Care ---
Author Name Unknown Organization [place] [address] Care Team Providers Care Window Shade Ring Coverer Name Role Phone Marcela Pinto MD Primary Care Provider + Reason for Referral * Evaluate & Treat - Unlimited Visits (Within 10 days (routine)) - Authorized Specialty Diagnoses / Procedures Referred By Miguel Angel roe Referred To Contact Orthopaedic Surgery / Orthopedics Diagnoses Pain in joint of right shoulder Marcela Pinto MD [address] [place] [id number] Referral ID Status Reason Start Date Expiration Date Visits Requested Visits Authorized [id number] Authorized Specialty Services Required 06/27/[phone] Question Answer Referral Priority Within 10 days (routine) What body part is the patient being seen for? Shoulder What condition is the patient being seen for? Sprain/Strain/Tear/Other Comments Please eval for shoulder pain, needs cortisol shot. Thanks. Reason for Visit * Reason Onset Date Comments Hospital Follow-Up Medication Administration 06/27/2022 Flu an d/or Pneumo Inj Hospital Follow-Up 06/27/2022 Encounter Details Date Type Department Care Team Description 06/27/2022 Office Visit General Internal Medicine [facility] [address] [place] [address] [id number] Marcela Pinto MD [address] [place] [id number] Diverticulitis of colon*; Need for prophylactic vaccination and inoculation against influenza; Ischemic colitis (HCC); HECTOR (generalized anxiety disorder); Chronic kidney disease, stage 3a (HCC); Morbid obesity with BMI of 40.0-44.9, adult (HCC); Paroxysmal atrial fibrillation (HCC); Pulmonary HTN (HCC); Chronic systolic heart failure (HCC); Sleep apnea, obstructive; Nocturnal hypoxia; Type 2 diabetes mellitus with hemoglobin A1c goal of less than 7.5% (HCC); Hyperlipidemia with target LDL less than 100; Subclinical hyperthyroidism; Pain in joint of right shoulder; Hospital discharge follow-up; Controlled substance agreement signed Allergies Active Allergy Reactions Severity Noted Date Comments Valsartan 07/10/2010 Enalapril 05/21/2006 Escitalopram Oxalate Nausea/vomiting 10/11/2009 Nauseated Iodinated Diagnostic Agents Nausea/vomiting 05/2010 IV Contrast Iodine Hives 12/18/2009 IV Contrast Metoprolol Tartrate 11/18/2006 Made pulse low [place] Oil-Black Currant-Vit E 07/10/2010 Verapamil 03/21/2004 Bupropion Hcl 10/30/2009 Makes pt sick in the stomach documented as of this encounter (statuses as of 07/01/2022) Medications Medication Sig Dispensed Refills Start Date [...] Asthma with severity to be determined,COPD, moderate ([facility]) USE ONE NEBULIZER TREATMENT TWICE A DAY DIRECTED FOR WORSENING ASTHMA. J45.909, J44.9 225 mL 1 06/29/2019 Active Albuterol Sulfate (VENTOLIN HFA) 108 (90 Base) MCG/ACT AERS Inhale 2 Puffs by mouth 2 times a day. 0 12/27/2019 Active Lancets MISCIndications:Type 2 diabetes mellitus with hemoglobin A1c goal of less than 7.0% ([facility]) Use as directed. USE TO TEST BLOOD SUGAR 3 TIMES A DAY FOR DIAGNOSIS CODE OF E11.9 300 Each 1 01/05/2020 Active DisceraSens N Voice System Device Use as directed. [...] with reduced ejection fraction and diastolic dysfunction ([facility]),NICM (nonischemic cardiomyopathy) ([facility]),Presence of Watchman left atrial appendage closure device Take 1 tab in the morning and 1/2 tab in the evening. 135 Tablet 3 10/04/2021 Active Spiriva Respimat 1.25 MCG/ACT Inhalation Aerosol Solution (Tiotropium [place] Monohydrate) Inhale by mouth 2 Puffs daily . 0 Active Lisinopril 2.5 MG Oral Tablet (Prinivil)Indication s:Paroxysmal atrial fibrillation ([facility]),Chronic systolic heart failure ([facility]) Take by mouth 1 Tablet in the [...] WITH BREAKFAST 90 Tablet 1 02/07/2022 Active OneToPopdustio In Vitro Strip (Glucose Blood) Checks blood [...] as of this encounter (statuses as of 07/01/2022) Active Problems Problem Noted Date Ischemic colitis [...] as of this encounter (statuses as of 07/01/2022) Resolved Problems Problem Noted Date Resolved Date [...] Hypoxemia 10/08/2011 10/30/2015 Genetic Sleep Disorder Research Other*[id number] 07/25/2011 05/15/2016 COPD, moderate 07/19/2011 07/28/2019 Overview: [...] as of this encounter (statuses as of 07/01/2022) Immunizations Name Administration Dates Next Due COVID-19 [...] Sign Reading Time Taken Comments Blood Pressure 102/60 06/27/2022 2:33 PM EDT Pulse 102 06/27/2022 2:33 PM EDT Temperature 37.7 C (99.9 F) 06/27/2022 2:33 PM ED T Respiratory Rate 18 06/27/2022 2:33 PM EDT Oxygen Saturation 99% 06/27/2022 2:33 PM EDT Inhaled Oxygen Concentration - - [...] Progress Notes * Marcela Pinto MD - 06/27/2022 2:48 PM EDT Images from the original note were not included. History of Present Illness Nina Harrington is a 81 year old female with hx of Chronic Anemia, had scopes done,currently on iron every other day,recurrent diverticulitis, not a surgical candidate, type 2 diabetes mellitus, hyperlipidemia, subclinical hypothyroidism, on methimazole, history of asthma, COPD, allergic rhinitis, nocturnal hypoxemia, history of sleep apnea, hypertension, chronic heart failure with reduced ejectionfraction, nonischemic cardiomyopathy, and permanent atrial fibrillation status post watchman deviceimplantatione, CKD, history of ischemic colitis, GERD, gastroparesis,HCETOR that presents for HospitalFollow-Up and Medication Administration (Flu and/or Pneumo Inj) Pt was admitted on 06/06/22 and discharged on 06/10/22 from [facility]. As per hospital admission note at [place]: ADMISSION HISTORY & PHYSICAL EXAM (focused): Nina Harrington is a 81 year old female who presents withcomplicated diverticulitis.Patient reports she has hadleftsided abdominal pain on and off for yearsand has had several episodes of diverticulitis.She initially presented [facility] on Friday (05/31) aftershe saw her PCP on 05/[address] scan ordered due to LLQ pain along with initiation of antibiotics for presumed diverticulitis. The CT came back Friday and showed an abscess and she was sent to the ED. She wasnoted to have WBC 16 and wasstarted on zosynand kept on clear liquid diet. She also reportsnoticing some gas in her urine since 06/01. 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 She was transferred to [facility] due to failure to significantly improve. This morning her WBC was 8.Today she reports she's not in much painnowbut was in a lot of pain when first admitted at [facility]. Reports history of diverticulitis. Denies fevers, chills, or dysuria, hematuria, or noticing sediment in urine. Endorses flatus. Last colonoscopy 2020 with diverticulosis and a 5mm polyp. Does also have a history of multiple diverticular bleeds requiring transfusion which is why she is not on coumadin anymore. Labs: CBC Lab Results Component Value Date/Time WBC 8.73 06/10/2022 07:11 AM WBC 11.86 (H) 05/27/2020 04:51 PM HGB 9.1 (L) 06/10/2022 07:11 AM HGB 11.1 (A) 05/28/2021 12:00 AM HGB 11.4 (L) 05/27/2020 04:51 PM HCT 30.2 (L) 06/10/2022 07:11 AM HCT 37.5 05/27/2020 04:51 PM PLT 410 (H) 06/10/2022 07:11 AM PLT 435 (H) 05/27/2020 04:51 PM Hgb Lab Results Component Value Date/Time HGB 9.1 (L) 06/10/2022 07:11 AM HGB 9.2 (L) 06/09/2022 08:36 AM HGB 9.7 (L) 06/08/2022 08:28 AM HGB 11.1 (A) 05/28/2021 12:00 AM HGB 10.5 (A) 05/21/2021 12:00 AM HGB 10.8 (A) 01/24/2021 12:00 AM HGB 11.4 (L) 05/27/2020 04:51 PM HGB 11.7 (L) 05/18/2020 01:13 PM HGB 12.3 04/03/2020 01:58 PM Has worsening rt shoulder pain, discussed seeing Ortho and get cortisol shot. Physical Exam Vitals: 06/27/22 1433 Temp: 37.7 C (99.9 F) Pulse: 102 Resp: 18 SpO2: 99% BP: 102/60 BP Readings from Last 3 Encounters: 06/27/22 102/60 06/25/22 110/66 06/10/22 118/77 Wt Readings from Last 3 Encounters: 06/25/22 103.8 kg (228 lb 12.8 oz) 06/06/22 101.3 kg (223 lb 4.8 oz) 05/13/22 104.7 kg (230 lb 14.4 oz) BMI Readings from Last 3 Encounters: 06/25/22 38.07 kg/m 06/06/22 37.16 kg/m 05/13/22 38.42 kg/m Ht Readings from Last 3 Encounters: 06/06/22 1.651 m (5' 5") 05/13/22 1.651 m (5' 5") 11/19/21 1.651 m (5' 5") HEENT: PERRLA, EOMI, anicteric sclera, b/l tympanic membrane is pearly white, no erythema, no pharyngeal erythema, no lymphadenopathy, neck supple CVS: RRR, no murmurs, rubs or gallops, s1 s 2normal. RESP: clear to auscultation, no wheezing or crackles ABD: soft, NT/ND, BS normal, no hepatosplenomegaly EXT: no edema, cyanosis, peripheral pulses palpable bilaterally No large joint swelling, no redness, range of motion normal. Skin normal. Gait normal. Mood stable No focal weakness ROM rt shoulder painful in abduction. I have reviewed the following results: CMP, Hemoglobin A1C and CBC Assessment and Plan Diverticulitis of colon (Primary) Finished an antibiotics. Has f/u with surgery at [facility] on 07/08/[facility]. Need for prophylactic vaccination and inoculation against influenza - INFLUENZA VACC, QUAD, HIGH DOSE (FLUZONE HD) Ischemic colitis (HCC) Stable. HECTOR (generalized anxiety disorder) Stable. Chronic kidney disease, stage 3a (HCC) Avoid nsaids, advised hydration. Morbid obesity with BMI of 40.0-44.9, adult (HCC) tdiscussed. Paroxysmal atrial fibrillation (HCC) Rate controlled. Pulmonary HTN (HCC) Chronic systolic heart failure (HCC) Compensated on lasix 40 mg twice daily. Sleep apnea, obstructive Doesn't prefer use of cpap. Uses 2 lit ogygen during day and 4 lit at night. Nocturnal hypoxia On oxygen 2 lit during day and 4 lit at night. Type 2 diabetes mellitus with hemoglobin A1c goal of less than 7.5% (HCC) On Amaryl Hyperlipidemia with target LDL less than 100 Subclinical hyperthyroidism On methimazole. Pain in joint of right shoulder - ORTHOPAEDICS REFERRAL OP Hospital discharge follow-up - DISCH MED RECON CUR MED LIS Wrap-Up Time: I spent a total of 40-54 minutes (exact time 40 mins) on the date of service in preparation, delivery, and documentation of the care provided to Nina Harrington excluding any time spent in the performance of separately billed services. * Teresita Raymundo LPN - 06/27/2022 2:32 PM EDT PRE - ADMINISTRATION DOCUMENTATION Are you experiencing any cold symptoms or fever? No Have you had Guillain-[place] Syndrome (an illness that causes paralysis) within the last 6 weeks? No Have you had the flu shot in the past? YES Have you ever had a reaction to the flu shot? No Teresita Raymundo LPN, 06/27/2022 2:32 PM Immunization Administration Documentation Time Out Procedure Performed: Yes Patient Identified (Ask Name/Date of ): Yes Does the patient have a fever greater than 101 degrees today? No Patient allergic to latex? No VFC Stock: No Immunization(s) verified: Yes, Immunization Name: Flu, VIS Sheet(s) given: Yes Verified Side and Site: Yes Verified Shot(s) with Parent(s)/Patient: Yes documented in this encounter Nursing Notes * Teresita Raymundo LPN - 06/27/2022 2:28 PM EDT Pt in today for a hospital follow up Pt having pain in her right arm/shoulder x couple months. Getting worse documented in this encounter Miscellaneous Notes * Addendum Note - Marcela Pinto MD - 06/27/2022 3:18 PM EDT Addended by: MARCELA PINTO on: 06/27/2022 03:18 PM Modules accepted: Orders, SmartSet documented in this encounter Plan of Treatment Upcoming Encounters Date Type Specialty Care Team Description 07/08/2022 Office Visit General Surgery Teresita Padron PA-C [address] [place] [address] 07/11/2022 Office Visit Hematology Oncology Ida Cueva CRNP [address] [facility] [place] [address] 10/08/2022 Office Visit Orthopedics Eliezer Gifford, DO [address] [facility] [place] [address] 10/10/2022 Office Visit Internal Medicine [facility] [address] [facility] [address] 01/03/2023 Office Visit Cardiology Hammad Lopez, DO [address] [facility] [address] [address] Pending Results Name Type Priority Associated Diagnoses Date /Time PAIN MANAGEMENT DRUG PANEL, URINE W/ INTERPRETATION Lab Routine Controlled substance agreement signed 06/27/2022 3:41 PM EDT Scheduled Referrals Name Type Priority Associated Diagnoses Order Schedule ORTHOPAEDICS REFERRAL OP Referral Within 10 days (routine) Pain in joint of right shoulder Ordered: 06/27/2022 Health Maintenance Due Date Last Done Comments Zoster Vaccines (2 of 3) 08/31/2012 07/06/2012 Depression Screening, Annual for Pts 12 and Over 08/08/2022 08/08/2021 COVID-19 Vaccine (5 - Booster for Pfizer series) 08/17/2022 04/16/2022, 08/21/2021, 12/22/2020, Additional history exists DIABETES-FOOT EXAM 11/19/2022 11/19/2021, 0 12/21/2020, 10/19/2019, Additional history exists DIABETES-HGBA1C EVERY 6 MONTHS 12/08/2022 06/07/2022, 02/19/2022, 08/23/2021, Additional history exists GFR - Renal Function 12/25/2022 06/27/2022, 06/21/2022, 06/10/2022, Additional history exists Alb / Creat Ratio 02/19/2023 02/19/2022, , 07/27/2018, Additional history exists CKD PHOS USE SMARTSET 77699 02/19/202302/10, 03/09/2021, 03/22/2019 DIABETES-EYE EXAM 03/08/2023 03/08/2022, , 08/07/2020, Additional history exists CKD HGB USE SMARTSET 23756 06/21/202306/21, 06/10/2022, 06/10/2022, Additional history exists O2 ASSESSMENT COMPLETED IN PAST YEAR FOR COPD 06/27/2023 06/27/2022 DXA Scan 08/08/2025 08/08/2020, 07/, 06/19/2010, Additional history exists DTaP,Tdap,and Td Vaccines [...] Diverticulitis of colon (without mention of hemorrhage) Need for prophylactic vaccination and inoculation against influenza Ischemic colitis (HCC) Unspecified vascular insufficiency of intestine HECTOR (generalized anxiety disorder) Generalized anxiety disorder Chronic kidney disease, stage 3a (HCC) Morbid obesity with BMI of 40.0-44.9, adult (HCC) Morbid obesity Paroxysmal atrial fibrillation (HCC) Atrial fibrillation Pulmonary HTN (HCC) Other chronic pulmonary heart diseases Chronic systolic heart failure (HCC) Chronic systolic heart failure Sleep apnea, obstructive Obstructive sleep apnea (adult) (pediatric) Nocturnal hypoxia Hypoxemia Type 2 diabetes mellitus with hemoglobin A1c goal of less than 7.5% (HCC) Hyperlipidemia with target LDL less than 100 Other and unspecified hyperlipidemia Subclinical hyperthyroidism Thyrotoxicosis without mention of goiter or other cause, without mention of thyrotoxic crisis or storm Pain in joint of right shoulder Pain in joint, shoulder region Hospital discharge follow-up Other follow-up examination Controlled substance agreement signed Encounter for long-term (current) use of other medications documented in this encounter Advance Directives Documents on File Type Date Recorded 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
--- OUTSIDE RECORDS SUMMARY | 2023-06-18 02:43 | External Medical Summary | Summary of Care ---
Author Name Unknown Organization [place] [address] Care Team Providers Care Revenue Integrity Analyst Name Role Phone Marcela Pinto MD Primary Care Provider + Reason for Referral * Evaluate & Treat - Unlimited Visits (Within 10 days (routine)) - Authorized Specialty Diagnoses / Procedures Referred By Contact Referred To Contact Cardiovascular Medicine / Cardiology Diagnoses Diverticulitis of sigmoid colon Teresita Padron PA-C [address] [place] [address] Referral ID Status Reason Start Date Expiration Date Visits Requested Visits Authorized [id number] Authorized Specialty Services Required 07/08/2022 999 999 Question Answer Referral Priority Within 10 days (routine) To which of the following clinics are you referring your patient? Heart Failure Clinic Comments Requesting preoperative clearance evaluation for risk stratification prior to considering low anterior resection for complicated diverticulitis Reason for Visit * Reason Comments Follow Up Encounter Details Date Type Department Care Team Description 07/08/2022 Office Visit General Surgery, [place] [address] [place] [address] Teresita Padron PA-C [address] [place] [address] Diverticulitis of sigmoid colon* Allergies Active Allergy Reactions Severity Noted Date Comments Valsartan 07/10/2010 Enalapril 05/21/2006 Escitalopram Oxalate Nausea/vomiting 10/11/2009 Nauseated Iodinated Diagnostic Agents Nausea/vomiting 05/2010 IV Contrast Iodine Hives 12/18/2009 IV Contrast Metoprolol Tartrate 11/18/2006 Made pulse low [place] Oil-Black Currant-Vit E 07/10/2010 Verapamil 03/21/2004 Bupropion Hcl 10/30/2009 Makes pt sick in the stomach documented as of this encounter (statuses as of 07/10/2022) Medications Medication Sig Dispensed Refills Start Date [...] determined,COPD, moderate ([facility]) USE ONE NEBULIZER TREATMENT TWICE A DAY DIRECTED FOR WORSENING ASTHMA. J45.909, J44.9 225 mL 1 06/29/2019 Active Albuterol Sulfate (VENTOLIN HFA) 108 (90 Base) MCG/ACT AERS Inhale 2 Puffs by mouth 2 times a day. 0 12/27/2019 Active Lancets MISCIndications:Type 2 diabetes mellitus with hemoglobin A1c goal of less than 7.0% ([facility]) Use as directed. USE TO [...] ejection fraction and diastolic dysfunction ([facility]),NICM (nonischemic cardiomyopathy) ([facility]),Presence of Watchman left atrial appendage closure device Take 1 tab in the morning and 1/2 tab in the evening. 135 Tablet 3 10/04/2021 Active Spiriva Respimat 1.25 MCG/ACT Inhalation Aerosol Solution (Tiotropium [place] Monohydrate) Inhale by mouth 2 Puffs daily [...] as of this encounter (statuses as of 07/10/2022) Active Problems Problem Noted Date Ischemic colitis [...] as of this encounter (statuses as of 07/10/2022) Resolved Problems Problem Noted Date Resolved Date [...] Hypoxemia 10/08/2011 10/30/2015 Genetic Sleep Disorder Research Other*[id number] 07/25/2011 05/15/2016 COPD, moderate 07/19/2011 07/28/2019 Overview: [...] as of this encounter (statuses as of 07/10/2022) Immunizations Name Administration Dates Next Due COVID-19 mRNA, LNP-s, No Pre serve, 2-Dose Series ([employer]) 08/21/2021,12/22/2020,2020 COVID-19, LNP-s, No Preserve , Tyler-sucrose, [...] Sign Reading Time Taken Comments Blood Pressure 98/53 07/08/2022 12:09 PM EDT Pulse 111 07/08/2022 12:09 PM EDT Temperature 36.1 C (97 F) 07/08/2022 12:09 PM EDT Respiratory Rate - - Oxygen Saturation - - Inhaled Oxygen Concentration - - Weight - [...] Progress Notes * Teresita Padron PA-C - 07/08/2022 12:55 PM EDT [facility] [place] Nina [place] 07/08/2022 [id number] Referring Physician: 1. Marcela Pinto MD Primary Care Physician: Marcela Pinto MD CHIEF COMPLAINT: Complicated diverticulitis and colovesical fistula HISTORY OF PRESENT ILLNESS: 81 y/o F with PMHx of heart failure(last cath and echo 12/2020 with EF 35%, non-occlusive disease), Afib with Watchman,asthmaand COPDon 2L NC daytime and 4L NC night, DM II on oral antihyperglycemics, HTN, hyperthyroidism who presents for evaluation after recent admission to [facility] from 06/06/22to 06/10/22 for complicated diverticulitis with [...] on Coumadin anymore. Due to her cardiac historycharlotte was deemed not a surgical candidate in the past. Since discharge she passes air when urinating.She currently denies abdominal pain. She is tolerating a low residue diet and having regular bowel f unction. PSHx includes tubal ligation,opencholecystectomy, and epigastric incisional hernia repair with mesh. REVIEW OF SYSTEMS: CONSTITUTIONAL: No change in weight, No weakness, No fatigue and No fevers, sweats, or chills EYE: No recent significant change in vision, No eye pain, redness, discharge, No diplopia, No h/o cataracts and No h/o glaucoma EARS: No ear pain, No drainage, No tinnitus or vertigo and No recent change in hearing NOSE: No history of frequent colds or sinusitis, No nasal stuffiness, No history of Hay Fever and No significant epistaxis MOUTH: No bleeding gums, No thrush or No sore throat NECK: No lumps or masses, No swollen glands, No recent swelling in thyroid area, No significant pain in neck and No h/o goiter or thyroid disease PULMONARY: No cough, sputum, or hemoptysis, No wheezing, No rales, No shortness of breath and No recent change in breathing CARDIOVASCULAR: No chest pain, No shortness of breath, No dyspnea on exertion, No orthopnea, No paroxysmal nocturnal dyspnea, No edema, No palpitations and No syncope GASTROINTESTINAL: No change in bowel habits, No nausea, vomiting, diarrhea, or constipation and No blood in stools or black tarry stools FEMALE: No dysuria and No frequency NEUROLOGIC: Normal balance, No headaches, No seizures and No weakness PSYCHIATRIC: No depression, No anxiety and No psychosis PAST MEDICAL HISTORY: Past Medical History: Diagnosis Date ACEI/ARB contraindicated Asthma Carpal tunnel syndrome DM type 2, goal: symptom mgmt (HCC) Generalized osteoarthritis HTN, goal below 140/90 Mixed dyslipidemia MEDICATIONS: Outpatient Medications Marked as Taking for the 07/08/22 encounter (Office Visit) with Teresita Padron PA-C Medication Sig Furosemide 40 MG Oral Tablet (Lasix) Take [...] BY MOUTH EVERY DAY IN THE MORNING HYDROcodone-Acetaminophen 5-325 MG Oral Tablet Take by mouth 1 Tablet every 6 hours as needed for Pain, Mild. Promethazine HCl 25 MG Oral Tablet (Phenergan) [...] TABLET BY MOUTH EVERY DAY WITH BREAKFAST Ipratropium-Albuterol 20-100 MCG/ACT Inhalation Aerosol Solution (Combivent Respimat) TAKE 1 PUFF BY MOUTH 4 TIMES A DAY methIMAzole 10 MG Oral Tablet (Tapazole) TAKE 1 TABLET BY MOUTH EVERY DAY (Patient taking differently: Take by mouth 5 mg daily . ) Atorvastatin Calcium 40 MG Oral Tablet (Lipitor) Take by mouth 1 Tablet in the morning. Spironolactone 25 MG Oral Tablet (Aldactone) Take by mouth 0.5 Tablets once a day on Friday, Friday, and Friday only . Ketoconazole 2 % External Cream APPLY TO GROIN AREA TWICE A DAY Lisinopril 2.5 MG Oral Tablet (Prinivil) Take by mouth 1 Tablet in the morning. Spiriva Respimat 1.25 MCG/ACT Inhalation Aerosol Solution (Tiotropium [place] Monohydrate) Inhale by mouth 2 Puffs daily . Metoprolol Succinate ER 25 MG Oral Tablet Extended Release 24 Hour (toPROL XL) Take 1 tab in the morning and 1/2 tab in the evening. Aspirin 81 MG Oral Tablet Delayed Release [...] MULTIVITAMIN WOMEN) TABS one pill each day polyethylene glycol 3350 (MIRALAX) 255 gram powder Take 17 g by mouth 2 times a day. One cap full in juice, to effect 1 stool per day. . oxygen GAS Use 4 L/min(Oxygen) as directed. [...] IV Contrast Metoprolol Tartrate Made pulse low [place] Oil-Black Currant-Vit E Verapamil Wellbutrin [Bupropion Hcl] Makes pt sick in the stomach PAST SURGICAL HISTORY: Past Surgical History: Procedure Laterality Date APPENDECTOMY W/OTHER PROCEDURE 1960 when removed gall bladder COLONOSCOPY, DIAGNOSTIC (RECTUM) 05/29/2016 poor prep, diverticulosis/inpt [facility] COLONOSCOPY, DIAGNOSTIC (RECTUM) 06/05/2017 diverticulosis, repeat 3 yrs/[facility] COLONOSCOPY, DIAGNOSTIC (RECTUM) 02/28/2018 adenomatous polyps, diverticulosis, repeat 3 yrs / [facility] COLONOSCOPY, DIAGNOSTIC (RECTUM) 05/08/2020 inflammatory tissue on bx, diverticulosis / [facility] COLONOSCOPY, W/BIOPSY 03/20/2012 hyperplastic polyps rpt 3 years. EGD, FLEXIBLE, DIAGNOSTIC 04/29/2014 normal/inpt [facility] EGD, FLEXIBLE, DIAGNOSTIC 05/29/2016 fundic submucosal mass/inpt [facility] EGD, FLEXIBLE, DIAGNOSTIC 05/08/2020 normal / [facility] EGD, FLEXIBLE,W/ENDOSCOPIC US 11/08/2016 inflammatory changes, stomach lesion, repeat EUS 1.5 yrs/[facility] EGD, FLEXIBLE,W/ENDOSCOPIC US 05/01/2018 stromal cell (smooth muscle) neoplasm, CBD dilation, repeat 2 yrs (needs OV prior)/[facility] EGD, FLEXIBLE,W/ENDOSCOPIC US 09/01/2020 leiomyoma / [facility] INCISIONAL HERNIA REPAIR, LAP, REDUCIBLE 09/29/2012 Repair of incarcerated supraumbilical (incisional) hernia with [facility]rium mesh 09/29/12 LIGATE/CUT OVIDUCT(S) REMOVAL OF TONSILS, AGE 12+ age 11 REMOVE GALLBLADDER 1960 SIGMOIDOSCOPY, DIAGNOSTIC 04/29/2014 stool in rectum/inpt [facility] SMALL BOWEL ENDOSCOPY, REMOVE FOREIGN BODY mesh 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, 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 Tobacco Use Smoking status: Never Smoker Smokeless [...] Stability: Not on file PHYSICAL EXAMINATION: BP 98/53 | Pulse 111 | Temp 36.1 C (97 F) (Tympanic) Constitutional: well nourished, well developed, no acute distress Neck: Supple, full ROM CV: normal rate, normal rhythm Chest: normal respiratory effort Abdomen: soft, NTTP, ND, no abnormal bowel sounds Ext: no edema Skin: complete exam not performed, but no obvious gross lesions Neuro: alert, oriented to person, place, and time, motor and sensation grossly intact IMPRESSION: 81 y/o female with recurrent diverticulitis and colovesical fistula PLAN: Discussed surgical intervention which would include laparoscopic possible open low anterior resection and takedown of colovesical fistula. Given her cardiac history and other comorbidities explained that pt would be high risk for the procedure. Will request preoperative Cardiology evaluation for risk stratification prior to considering surgery. Pt can return to clinic with Colorectal Surgeon to discuss future care plan after the Cardiology visit. Pt and her daughters agree with plan. Plan discussed with Dr. Pavon. Teresita Padron PA-C 07/08/2022 12:56 PM documented in this encounter Plan of Treatment Upcoming Encounters Date Type Specialty Care Team Description 07/11/2022 Office Visit Hematology Oncology Ida Cueva CRNP [address] [facility] [place] [id number] 07/15/2022 Office Visit Cardiology Dulce Merino CRNP [address] [facility] [place] [address] 09/12/2022 Office Visit General Surgery Dionte Snyder MD [address] [place] [address] 10/08/2022 Office Visit Orthopedics Eliezer Gifford DO [address] [facility] [place] [address] 10/10/2022 Office Visit Internal Medicine Marcela Pinto MD [address] [place] [address] 01/03/2023 Office Visit Card[facility]ammad Lopez DO [address] [facility] [place] [address] Scheduled Referrals Name Type Priority Associated Diagnoses Orde r Schedule CARDIOLOGY REFERRAL OP Referral Within 10 days (routine) Diverticulitis of sigmoid colon Ordered: 07/08/2022 Health Maintenance Due Date Last Done Comments [...] Additional history exists CKD PHOS USE SMARTSET 40497 02/19/202302/10, 03/09/2021, 03/22/2019 DIABETES-EYE EXAM 03/08/2023 03/08/2022, , 08/07/2020, Additional history exists CKD HGB USE SMARTSET 05619 06/21/202306/21, 06/10/2022, 06/10/2022, Additional history exists O2 ASSESSMENT COMPLETED IN PAST YEAR FOR COPD 06/27/2023 06/27/2022 DXA Scan 08/08/2025 08/08/2020, 04/13, 06/19/2010, Additional [...] this encounter Visit Diagnoses Diagnosis Diverticulitis of sigmoid colon- Primary Diverticulitis of colon (without mention of hemorrhage) documented in this encounter Advance Directives Documents on File Type Date Recorded Patient Reed Repairer Expl anation Advanced 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 Directives occurred with: Not Discussed Care Teams Revenue Integrity Analyst Relationship Specialty Start Date End Date Marcela Pinto MD [address] [place] [address] PCP - General Internal Medicine 08/04/14 documented as of this encounter"
--- OUTSIDE RECORDS SUMMARY | 2023-06-18 02:43 | External Medical Summary ---
Author Name Unknown Address Unknown Organization K01:[facility] [place] [address] [facility] [address] Laboratory Report Ordering Provider Test Date Status ERON CURRIE 07/11/2022 14:15:01 Final Observation Date Value Abnormality Reference (Units ) Status Retic, % (auto) 07/11/2022 14:15:01 2.01 Above high normal 0.80-1.90 (%) Final Reticulocytes, Absolute 07/11/2022 14:15:01 69.3 31.3-100.1 (K/uL) Final Reticulocyte fraction, immature 07/11/2022 14:15:01 27.5 Above high normal 2.5-20.6 (%) Final Reticulocyte HGB 07/11/2022 14:15:01 32.5 29.7-37.4 (pg) Final Performing Location LABORATORY [facility] - [facility] [address] [facility] [address] [facility] [address]
--- OUTSIDE RECORDS SUMMARY | 2023-06-18 02:43 | External Medical Summary | Summary of Care ---
Author Name Unknown Organization [place] [address] Care Team Providers Care Rand Butter Name Role Phone Marcela Pinto MD Primary Care Provider + Reason for Visit * Reason Comments NEW PATIENT right shoulder * Evaluate & Treat - Unlimited Visits (Within 10 days (routine)) - Authorized Specialty Diagnoses / Procedures Referred By Contnesha t Referred To Contact Orthopaedic Surgery / Orthopedics Diagnoses Pain in joint of right shoulder Marcela Pinto MD [address] [place] [address] Referral ID Status Reason Start Date Expiration Date Visits Requested Visits Authorized [id number] Authorized Specialty Services Required 06/27/2022 999 999 Encounter Details Date Type Department Care Team Description 07/01/2022 Office Visit Orthopaedics [facility] [address] [place] [address] Eliezer Gifford, DO [address] [place] [address] Primary osteoarthritis of right shoulder*; Nontraumatic complete tear of right rotator cuff Allergies Active Allergy Reactions Severity Noted Date Comments Valsartan 07/10/2010 Enalapril 05/21/2006 Escitalopram Oxalate Nausea/vomiting 10/11/2009 Nauseated Iodinated Diagnostic Agents Nausea/vomiting 05/2010 IV Contrast Iodine Hives 12/18/2009 IV Contrast Metoprolol Tartrate 11/18/2006 Made pulse low [place] Oil-Black Currant-Vit E 07/10/2010 Verapamil 03/21/2004 Bupropion [...] Asthma with severity to be determined,COPD, moderate ([facility]) USE ONE NEBULIZER TREATMENT TWICE A DAY DIRECTED FOR WORSENING ASTHMA. J45.909, J44.9 225 mL 1 06/29/2019 Active Albuterol Sulfate (VENTOLIN HFA) 108 (90 Base) MCG/ACT AERS Inhale 2 Puffs by mouth 2 times a day. 0 12/27/2019 Active Lancets MISCIndications:Type 2 diabetes mellitus with hemoglobin A1c goal of less than 7.0% ([facility]) Use as directed. USE TO [...] fraction and diastolic dysfunction (HCC),NICM (nonischemic cardiomyopathy) ([facility]),Presence of Watchman left atrial appendage closure device Take 1 tab in the morning and 1/2 tab in the evening. 135 Tablet 3 10/04/2021 Active Spiriva Respimat 1.25 MCG/ACT Inhalation Aerosol Solution (Tiotropium [place] Monohydrate) Inhale by mouth 2 Puffs daily [...] before bedtime. 60 Tablet 6 06/25/2022 Active Hospital, Clinic, or Other Facility Administered Medication Ordered Dose Route Frequency Start Date End Date Status lidocaine 1% 1 mL - triamcinolone acetonide 40 mg/mL 1 mL inj 2 mLIndications:Primary osteoarthritis of right shoulder,Nontraumatic complete tear of right rotator cuff 2 mL IJ ONCE 07/01/2022 07/01/2022 Ended documented as of this encounter (statuses [...] Hypoxemia 10/08/2011 10/30/2015 Genetic Sleep Disorder Research Other*[id number] 07/25/2011 05/15/2016 COPD, moderate 07/19/2011 07/28/2019 Overview: [...] mRNA, LNP-s, No Pre serve, 2-Dose Series ([employer]) 08/21/2021,12/22/2020,2020 COVID-19, LNP-s, No Preserve , Tyler-sucrose, [...] Progress Notes * Eliezer Gifford, DO - 07/01/2022 2:30 PM EDT Nina Harrington [id number] Nina Harrington is a 81 year old female who [facility]. Consult requested by Marcela Pinto MD. Nina Harrington is here unaccompanied Date of Injury: npo injury, pain x months getting worse,more pain at night Sport or Occupation: retired Handedness: right History: Level of pain: reviewed and agree with Nursing Notes for HPI elements Modifying factors: activity exacerbates and night pain History - As above Patient has tried ibuprofen and tylenol. No formal physical therapy. 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 Tobacco Use Smoking status: Never Smoker Smokeless [...] Respimat 1.25 MCG/ACT Inhalation Aerosol Solution (Tiotropium [place] Monohydrate) Inhale by mouth 2 Puffs daily [...] MOUTH EVERY DAY WITH BREAKFAST 90 Tablet1 [employer] Verio In Vitro Strip (Glucose Blood) Checks [...] degrees Palpation: positive tenderness to palpation diffuse Strength and cuff tests: supraspinatous (empty can): Right - 4/5 Left - 5/5 infraspinatous/teres minor (resisted external rotation): Right - 4/5 Left - 5/5 subscapularis (resisted internal rotation): Right - 4/5 Left - 5/5 drop arm negative Bilateral Impingment tests: Hawkin's sign not able to access due to patient pain and guarding Right Acromioclavicular joint: crossed arm not able to access due to patient pain and guarding Right Biceps and labral tests: speed (biceps) negative Right Cervical Spine: Patient denies neck symptoms and/or numbness/tingling in upper extremities Radiology (I have personally reviewed the films done today): Right shoulder x- ray reveals no fracture and mild- mod GH OA, high riding humeral head Bedside US for edu purpose shows complete tear of supra on the right Assessment and Plan: given age and health, no surgical consult will try GH jt inj, she wishes to hold on PT, watch blood glucose, see procedure note 1) Primary osteoarthritis of right shoulder (Primary) - POINT OF CARE US MAJOR JOINT INJECTION, ORTHO - lidocaine 1% 1 mL - triamcinolone acetonide 40 mg/mL 1 mL inj 2 mL Nontraumatic complete tear of right rotator cuff - POINT OF CARE US MAJOR JOINT INJECTION, ORTHO - lidocaine 1% 1 mL - triamcinolone acetonide 40 mg/mL 1 mL inj 2 mL Other orders - XR SHOULDER, 2 OR MORE VIEWS Eliezer Gifford DO Primary Care Sports Medicine Orthopaedics [address] [place] [address] Procedure note (shoulder glenohumoral joint injection) on [...] tolerated procedure with no significant bleeding or adversereaction. Patient instructed to call or return to clinic for fever or warmth and redness at injection site for potential infection. Patient also advised as to potential for steroid flare reaction including increased pain and redness at injection site which should be treated with ice and resolve within 24 hours. Eliezer Gifford DO documented in this encounter Nursing Notes * LISA Guerra - 07/01/2022 2:03 PM EDT New Patient Here for todays visit regarding: shoulder Side: right Injury: NKI Recent Imaging: today Prior treatment: no Goals for this appointment: injection if possible Chantel champion cma documented in this encounter Plan of Treatment Upcoming Encounters Date Type Specialty Care Team Description 07/01/2022 Imaging Radiology Arrived 07/08/2022 Office Visit General Surgery Teresita Padron PA-C [address] [place] [address] 07/11/2022 Office Visit Hematology Oncology Ida Cueva CRNP [address] [facility] [place] [address] 10/08/2022 Office Visit Orthopedics Eliezer Gifford, DO [address] [facility] [address] 10/10/2022 Office Visit Internal Medicine Marcela Pinto MD [address] [facility] [place] [address] 01/03/2023 Office Visit Cardiology Hammad Lopez, DO [address] [place] [address] Pending Results Name Type Priority Associated Diagnoses Date /Time XR SHOULDER, 2 OR MORE VIEWS Medical Imaging Routine 07/01/2022 2:22 PM EDT Scheduled Orders Name Type Priority Associated Diagnoses Orde r Schedule POINT OF CARE US MAJOR JOINT INJECTION, ORTHO Medical Imaging Routine Primary osteoarthritis of right shoulder Nontraumatic complete tear of right rotator cuff Ordered: 07/01/2022 Health Maintenance Due Date Last Done Comments [...] Additional history exists CKD PHOS USE SMARTSET 83218 02/19/202302/10, 03/09/2021, 03/22/2019 DIABETES-EYE EXAM 03/08/2023 03/08/2022, , 08/07/2020, Additional history exists CKD HGB USE SMARTSET 70861 06/21/202306/21, 06/10/2022, 06/10/2022, Additional history exists O2 [...] 2 mL 2 mL, Injection, ONCE, On 07/01/22 at 1515, For 1 dose, Lidocaine 1% 1mL Triamcinolone Acetonide 40 mg/mL 1 mL (Final concentration = 20 mg/mL) REFRIGERATE and SHAKE WELL Given 07/01/2022 2:42 PM EDT 2 mL Shoulder Right documented in this encounter Advance Directives Documents on File Type Date Recorded Patient Roustabout Crew Expl anation Advanced 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 Directives occurred with: Not Discussed Care Teams Rand Butter Relationship Specialty Start Date End Date Marcela Pinto MD [address] [place] [facility] [place] [address] PCP - General Internal Medicine 08/04/14 documented as of this encounter
--- OUTSIDE RECORDS SUMMARY | 2023-06-18 02:43 | External Medical Summary ---
Author Name Unknown Address Unknown Organization K01:[facility] [address] [place] [address] Laboratory Report Ordering Provider Test Date Status ERON CURRIE 07/11/2022 14:15:01 Final Observation Date Value Abnormality Reference (Units ) Status Erythrocyte sedimentation rate by Photometric method 07/11/2022 14:15:01 90 Above high normal <30 (mm/hour) Final Performing Location LABORATORY [facility] - [address] [place] [address]
--- OUTSIDE RECORDS SUMMARY | 2023-06-18 02:43 | External Medical Summary ---
Author Name Unknown Address Unknown Organization K09:[facility] [place] [address] Laboratory Report Ordering Provider Test Date Status JOSE A JOHNSON 07/11/2022 14:15:00 Final Observation Date Value Abnormality Reference (Units ) Status BUN 07/11/2022 14:15:00 13 6-20 (mg/dL) Final Creatinine 07/11/2022 14:15:00 0.8 0.5-1.0 (mg/dL) Final Glomerular filtration rate/1.73 sq M.predicted [Volume Rate/Area] in Serum, Plasma or Blood by Creatinine-based formula (CKD-EPI) 07/11/2022 14:15:00 78 >=60 (mL/min) Final Performing Location [facility] [place] [address]
--- OUTSIDE RECORDS SUMMARY | 2023-06-18 02:43 | External Medical Summary ---
Author Name Unknown Address Unknown Organization K01:[facility] [place] [address] [place] [address] Laboratory Report Ordering Provider Test Date Status JOSE A JOHNSON 07/11/2022 14:15:01 Final Observation Date Value Abnormality Reference (Units ) Status BNP, Pro-hormone 07/11/2022 14:15:01 6443 Above high no rmal <300 (pg/mL) Final Performing Location LABORATORY [facility] - [address] [place] [address]
--- OUTSIDE RECORDS SUMMARY | 2023-06-18 02:43 | External Medical Summary ---
Author Name Unknown Address Unknown Organization K2I:LAB[facility]ATORY [address] [place]mol [place] [address] Laboratory Report Ordering Provider Test Date Status ERON CURRIE 07/11/2022 14:15:01 Final Observation Date Value Abnormality Reference (Units) Status Pathologist review of Blood tests 07/11/2022 14:15:01 Peripheral Blood Smear: Final Pathologist review of Blood tests 07/11/2022 14:15:01 Leukocytosis with absolute neutrophilia. Final Pathologist review of Blood tests 07/11/2022 14:15:01 Normocytic normochromic anemia. Final Pathologist review of Blood tests 07/11/2022 14:15:01 Final Pathologist review of Blood tests 07/11/2022 14:15:01 COMMENT: Neutrophilia with toxic granulation may be associated with acute infectious process or acute inflammatory disorders. Clinical correlation is recommended. Final Pathologist review of Blood tests 07/11/2022 14:15:01 Final Pathologist review of Blood tests 07/11/2022 14:15:01 RWBC: Leukocytosis with absolute neutrophilia and toxic changes. No increase in blasts or dysplastic cells seen. Final Pathologist review of Blood tests 07/11/2022 14:15:01 RBC: Normocytic normochromic anemia with mild anisopoikilocytosis . No increase in schistocytes seen. Final Pathologist review of Blood tests 07/11/2022 14:15:01 PLT: The platelet morphology and distribution are unremarkable. Final CLINICAL INDICATION FOR SMEAR 07/11/2022 14:15:01 Workup of Anemia Final Performing Location LABORATORY [address] [place]mol [place] [address]
--- OUTSIDE RECORDS SUMMARY | 2023-06-18 02:43 | External Medical Summary ---
Author Name Unknown Address Unknown Organization K01:[facility]ATORY [place] - [address] [place] [address] Laboratory Report Ordering Provider Test Date Status JOSE A JOHNSON 07/11/2022 14:15:01 Final Observation Date Value Abnormality Reference (Units ) Status Iron 07/11/2022 14:15:01 10 Below low normal 33-151 (ug/dL) Final Iron-binding capacity 07/11/2022 14:15:01 162 Below low normal 250-425 (ug/dL) Final Transferrin Sat % 07/11/2022 14:15:01 6 Below low normal 15-55 (%) Final Performing Location LAB[facility]ATORY [place] - [address] [place] [address]
--- OUTSIDE RECORDS SUMMARY | 2023-06-18 02:43 | External Medical Summary ---
Author Name Unknown Address Unknown Organization K01:LABORATORY [facility] - [address] [place] [address] Laboratory Report Ordering Provider Test Date Status ERON CURRIE 07/11/2022 14:15:01 Final Observation Date Value Abnormality Reference (Units ) Status LDH 07/11/2022 14:15:01 151 <=250 (U/L ) Final Performing Location [facility] [address] [facility] [address]
--- OUTSIDE RECORDS SUMMARY | 2023-06-18 02:43 | External Medical Summary ---
Author Name Unknown Address Unknown Organization K01:[facility] - [address] [place] [address] Laboratory Report Ordering Provider Test Date Status ERON CURRIE 07/11/2022 14:15:01 Final Observation Date Value Abnormality Reference (Units ) Status CRP, low-sensitivity 07/11/2022 14:15:01 114 Above high normal <=5 (mg/L) Final Performing Location LAB[facility] - [address] [place] [address]
--- OUTSIDE RECORDS SUMMARY | 2023-06-18 02:43 | External Medical Summary ---
Author Name Unknown Address Unknown Organization K01:[facility] [place] - [address] [facility] [address] Laboratory Report Ordering Provider Test Date Status KUSHERON 07/11/2022 14:15:01 Final Observation Date Value Abnormality Reference (Units ) Status Vitamin B12 07/11/2022 14:15:01 728 232-1,24 5 (pg/mL) Final Performing Location [facility] - [address] [facility] [address]
--- OUTSIDE RECORDS SUMMARY | 2023-06-18 02:43 | External Medical Summary ---
Author Name Unknown Address Unknown Organization K01:[facility] [place] [address] [facility] [address] Laboratory Report Ordering Provider Test Date Status JOSE A JOHNSON 07/11/2022 14:15:01 Final Observation Date Value Abnormality Reference (Units ) Status Ferritin 07/11/2022 14:15:01 214 Above high normal 13 -150 (ng/mL) Final Performing Location LAB[facility]AT[facility] - [address] [facility] [address]
--- OUTSIDE RECORDS SUMMARY | 2023-06-18 02:43 | External Medical Summary | Summary of Care ---
Author Name Unknown Organization [place] [address] Care Team Providers Care Statistical Geneticist Name Role Phone Marcela Pinto MD Primary Care Provider + Reason for Visit * Reason Onset Date Comments NEW PATIENT 07/04/2022 Encounter Details Date Type Department Care Team Description 07/04/2022 Telephone Hematology/Oncology [facility] [address] [place], [place] [phone] Ida Cueva CRNP [address] [facility] [place] [id number] NEW PATIENT Allergies Active Allergy Reactions Severity Noted Date Comments Valsartan 07/10/2010 Enalapril 05/21/2006 Escitalopram Oxalate Nausea/vomiting 10/11/2009 Nauseated Iodinated Diagnostic Agents Nausea/vomiting 05/2010 IV Contrast Iodine Hives 12/18/2009 IV Contrast Metoprolol Tartrate 11/18/2006 Made pulse low [place] Oil-Black Currant-Vit E 07/10/2010 Verapamil 03/21/2004 Bupropion Hcl 10/30/2009 Makes pt sick in the stomach documented as of this encounter (statuses as of 07/04/2022) Medications Medication Sig Dispensed Refills Start Date [...] ejection fraction and diastolic dysfunction ([facility]),NICM (nonischemic cardiomyopathy) (HCC),Presence of Watchman left atrial appendage closure device Take 1 tab in the morning and 1/2 tab in the evening. 135 Tablet 3 10/04/2021 Active Spiriva Respimat 1.25 MCG/ACT Inhalation Aerosol Solution (Tiotropium [place] Monohydrate) Inhale by mouth 2 Puffs daily [...] as of this encounter (statuses as of 07/04/2022) Active Problems Problem Noted Date Ischemic colitis [...] as of this encounter (statuses as of 07/04/2022) Resolved Problems Problem Noted Date Resolved Date [...] Hypoxemia 10/08/2011 10/30/2015 Genetic Sleep Disorder Research Other*[id number] 07/25/2011 05/15/2016 COPD, moderate 07/19/2011 07/28/2019 Overview: [...] as of this encounter (statuses as of 07/04/2022) Immunizations Name Administration Dates Next Due COVID-19 mRNA, LNP-s, No Pre serve, 2-Dose Series ([place]) 08/21/2021,12/22/2020,2020 COVID-19, LNP-s, No Preserve , Tyler-sucrose, [...] encounter Miscellaneous Notes * Telephone Encounter - Raudel Maurizio Samina, KAYLA - 07/04/2022 12:41 PM EDT Called and left a message on pt's primary number in regards to her upcoming new pt appt scheduled for 07/11 at 1:00 PM with NIECY Nava. Pt was informed of her arrival time (12:45 PM), the office location and the phone number to call with any questions or to reschedule. Instructed pt to bring photo ID, insurance card and copayment to the appt. documented in this encounter Plan of Treatment Upcoming Encounters Date Type Specialty Care Team Description 07/08/2022 Office Visit General Surgery Teresita Padron PA-C [address] [place] [address] 07/11/2022 Office Visit Hematology Oncology Ida Cueva CRNP [address] [place], [place] [phone] 10/08/2022 Office Visit Orthopedics Eliezer Gifford, DO [address] [place] [address] 10/10/2022 Office Visit Internal Medicine Marcela Pinto MD [address] [place], [place] [phone] 01/03/2023 Office Visit Cardiology Hammad Lopez, DO [address] [place] [address] Health Maintenance Due Date Last Done Comments [...] Additional history exists CKD PHOS USE SMARTSET 82677 02/19/202302/10, 03/09/2021, 03/22/2019 DIABETES-EYE EXAM 03/08/2023 03/08/2022, , 08/07/2020, Additional history exists CKD HGB USE SMARTSET 49315 06/21/202306/21, 06/10/2022, 06/10/2022, Additional history exists O2 [...] Documents on File Type Date Recorded Patient 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
--- OUTSIDE RECORDS SUMMARY | 2023-06-18 02:43 | External Medical Summary | Summary of Care ---
Author Name Unknown Organization [place] [address] Care Team Providers Care Fruit Or Nut Farmworker Name Role Phone Marcela Pinto MD Primary Care Provider + Reason for Referral * Evaluate & Treat - Unlimited Visits (Within 10 days (routine)) - Authorized Specialty Diagnoses / Procedures Referred By Miguel Angel roe Referred To Contact Orthopaedic Surgery / Orthopedics Diagnoses Pain in joint of right shoulder Marcela Pinto MD [address] [place] [address] Referral ID Status Reason Start Date Expiration Date Visits Requested Visits Authorized [id number] Authorized Specialty Services Required 06/27/2022 999 999 [...] State [place] [address] [place] [address] Marcela Pinto MD [address] [place] [address] [address] Diverticulitis of colon*; Need for prophylactic vaccination [...] Contrast Metoprolol Tartrate 11/18/2006 Made pulse low [place] Oil-Black Currant-Vit E 07/10/2010 Verapamil 03/21/2004 Bupropion [...] severity to be determined,COPD, moderate ([facility]) USE ONE NEBULIZER TREATMENT TWICE A DAY DIRECTED FOR WORSENING ASTHMA. J45.909, J44.9 225 mL 1 06/29/2019 Active Albuterol Sulfate (VENTOLIN HFA) 108 (90 Base) MCG/ACT AERS Inhale 2 Puffs by mouth 2 times a day. 0 12/27/2019 Active Lancets MISCIndications:Type 2 diabetes mellitus with hemoglobin A1c goal of less than 7.0% ([facility]) Use as directed. USE TO TEST BLOOD SUGAR 3 TIMES A DAY FOR DIAGNOSIS CODE OF E11.9 300 Each 1 01/05/2020 Active [place] AxonSens N Voice System Device Use as directed. [...] ejection fraction and diastolic dysfunction ([facility]),NICM (nonischemic cardiomyopathy) ([facility]),Presence of Watchman left atrial appendage closure device Take 1 tab in the morning and 1/2 tab in the evening. 135 Tablet 3 10/04/2021 Active Spiriva Respimat 1.25 MCG/ACT Inhalation Aerosol Solution (Tiotropium [place] Monohydrate) Inhale by mouth 2 Puffs daily . 0 Active Lisinopril 2.5 MG Oral Tablet (Prinivil)Indication s:Paroxysmal atrial fibrillation ([facility]),Chronic systolic heart failure ([facility]) Take by mouth 1 Tablet in the [...] WITH BREAKFAST 90 Tablet 1 02/07/2022 Active OneToFnboxio In Vitro Strip (Glucose Blood) Checks blood [...] Hypoxemia 10/08/2011 10/30/2015 Genetic Sleep Disorder Research Other*[id number] 07/25/2011 05/15/2016 COPD, moderate 07/19/2011 07/28/2019 Overview: [...] deviceimplantatione, CKD, history of ischemic colitis, GERD, gastroparesis,HECTOR that presents for HospitalFollow-Up and Medication Administration (Flu and/or Pneumo Inj) As per hospital admission note at [facility] [place]: ADMISSION HISTORY & PHYSICAL EXAM (focused): Nina Harrington is a 81 year old female who presents withcomplicated diverticulitis.Patient reports she has hadleftsided abdominal pain on and off for yearsand has had several episodes of diverticulitis.She initially presented [facility] on Friday (05/31) aftershe saw her PCP [...] a colovesical fistula. She was transferred to [facility] due to failure to significantly improve. This morning her WBC was 8.Today she reports she's not in much painnowbut was in a lot of pain when first admitted at [facility]. Reports history of diverticulitis. Denies fevers, chills, or dysuria, hematuria, or noticing sediment in urine. Endorses flatus. Last colonoscopy 2019 with diverticulosis and a 5mm polyp. Does [...] an antibiotics. Has f/u with surgery at [facility] on 07/08/22. Need for prophylactic vaccination and [...] symptoms or fever? No Have you had Guillain-Zeeland Syndrome (an illness that causes paralysis) within [...] Description 07/08/2022 Office Visit General Surgery Teresita Padron, DEREK [address] [place] [address] 07/11/2022 Office Visit Hematology Oncology Ida Cueva CRNP [address] [place] [address] 10/08/2022 Office Visit Orthopedics Eliezer Gifford, DO [address] [facility] [place] [address] 10/10/2022 Office Visit Internal Medicine Marcela Pinto MD [address] [place] [address] 01/03/2023 Office Visit [facility]iology [facility]ammad Lopez, DO [address] [facility] [place] [address] Pending Results Name Type Priority Associated Diagnoses [...] Additional history exists CKD PHOS USE SMARTSET 62618 02/19/2023 05, 03/09/2021, 03/22/2019 DIABETES-EYE EXAM 03/08/2023 03/08/2022, , 08/07/2020, Additional history exists CKD HGB USE SMARTSET 89246 06/21/202306/21, 06/10/2022, 06/10/2022, Additional history exists O2 [...] Documents on File Type Date Recorded Patient Arch Pad Cementer Expl anation Advanced 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 Directives occurred with: Not Discussed Care Teams Fruit Or Nut Farmworker Relationship Specialty Start Date End Date Marcela Pinto MD [address] [place] [address] PCP - General Internal Medicine 08/04/14 documented as of this encounter
--- OUTSIDE RECORDS SUMMARY | 2023-06-18 02:44 | External Medical Summary | Summary of Care ---
Author Name Unknown Organization [place] [address] Care Team Providers Care Produce Department Manager Name Role Phone Alex Pinto MD Primary Care Provider + Encounter Details Date Type Department Care Team Description 06/24/2022 Orders Only General Internal Medicine [facility] [address] [place] [address] Alex Pinto MD [address] [place] [address] Iron deficiency anemia, unspecified iron deficiency anemia type* Allergies Active Allergy Reactions Severity Noted Date Comments Valsartan 07/10/2010 Enalapril 05/21/2006 Escitalopram Oxalate Nausea/vomiting 10/11/2009 Nauseated Iodinated Diagnostic Agents Nausea/vomiting 05/2010 IV Contrast Iodine Hives 12/18/2009 IV Contrast Metoprolol Tartrate 11/18/2006 Made pulse low [place] Oil-Black Currant-Vit E 07/10/2010 Verapamil 03/21/2004 Bupropion Hcl 10/30/2009 Makes pt sick in the stomach documented as of this encounter (statuses as of 06/30/2022) Medications Medication Sig Dispensed Refills Start Date [...] :Asthma with severity to be determined,COPD, moderate ([facility]) USE ONE NEBULIZER TREATMENT TWICE A DAY DIRECTED FOR WORSENING ASTHMA. J45.909, J44.9 225 mL 1 9 Active Albuterol Sulfate (VENTOLIN HFA) 108 (90 Base) MCG/ACT AERS Inhale 2 Puffs by mouth 2 times a day. 0 0 Active Lancets MISCIndications:Typ e 2 diabetes mellitus with hemoglobin A1c goal of less than 7.0% ([facility]) Use as directed. USE TO TEST BLOOD [...] Oral Tablet Extended Release 24 Hour (toPROL XL)Indications:Hair Dryer akin 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 135 Tablet 3 1 Active Spiriva Respimat 1.25 MCG/ACT Inhalation Aerosol Solution (Tiotropium [place] Monohydrate) Inhale by mouth 2 Puffs daily [...] with Benadryl 3 Tablet 0 2 06/25/20 Discontinu ed(Patient preference /discontin uation) Furosemide 40 MG Oral Tablet (Lasix)Indications: Chronic systolic heart failure (HCC),Paroxysmal atrial fibrillation (HCC),Chronic 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),NICM (nonischemic cardiomyopathy) (HCC),Chronic atrial fibrillation (HCC),Hospital discharge follow-up,Presence of Watchman left atrial appendage closure device TAKE 1 TABLET BY MOUTH IN THE MORNING, AND 1/2 TABLET IN THE EVENING 135 Tablet 3 2 06/25/20 Discontinu ed(Medicat ion/Dose Changed) documented as of this encounter (statuses as of 06/30/2022) Active Problems Problem Noted Date Ischemic colitis [...] as of this encounter (statuses as of 06/30/2022) Resolved Problems Problem Noted Date Resolved Date [...] Hypoxemia 10/08/2011 10/30/2015 Genetic Sleep Disorder Research Other*[id number] 07/25/2011 05/15/2016 COPD, moderate 07/19/2011 07/28/2019 Overview: [...] as of this encounter (statuses as of 06/30/2022) Immunizations Name Administration Dates Next Due COVID-19 mRNA, LNP-s, No Pre serve, 2-Dose Series ([employer]) 08/21/2021,12/22/2020,2020 COVID-19, LNP-s, No Preserve , Tyler-sucrose, [...] encounter Miscellaneous Notes * Addendum Note - Alex Pinto MD - 06/30/2022 2:07 PM EDT Addended by: ALEX PINTO on: 06/30/2022 02:07 PM Modules accepted: Orders * Result QuickNote - Alex Pinto MD - 06/30/2022 2:07 PM EDT Last hb was slightly lower. Make sure she continue ferrous sulfate one every other day. Repeat cbcdin 2 week sfrom now. Order is in. documented in this encounter Plan of Treatment Upcoming Encounters Date Type Specialty Care Team Description 07/01/2022 Office Visit Orthopedics Eliezer Gifford, DO [address] [address] 07/08/2022 Office Visit General Surgery Teresita Padron PA-C [address] [place] [address] 07/11/2022 Office Visit Hematology Oncology Ida Cueva [facility]NP [address] [facility] [address] 10/10/2022 Office Visit Internal Medicine Alex Pinto MD 200 [place] [address] 01/03/2023 Office Visit Cardiology Hammad Lopez, DO [address] [place] [address] Scheduled Orders Name Type Priority Associated Diagnoses Orde r Schedule CBC WITH WBC DIFFERENTIAL Lab Routine Iron deficiency anemia, unspecified iron deficiency anemia type Expected: 07/14/2022, Expires: 06/30/2023 FERRITIN Lab Routine Iron deficiency anemia, unspecified iron deficiency anemia type Expected: 07/14/2022, Expires: 06/30/2023 IRON SCREEN, INCLUDING TIBC Lab Routine Iron deficiency anemia, unspecified iron deficiency anemia type Expected: 07/14/2022, Expires: 06/30/2023 Health Maintenance Due Date Last Done Comments [...] Additional history exists CKD PHOS USE SMARTSET 33416 02/19/202302/10, 03/09/2021, 03/22/2019 DIABETES-EYE EXAM 03/08/2023 03/08/2022, , 08/07/2020, Additional history exists CKD HGB USE SMARTSET 88232 06/21/202306/21, 06/10/2022, 06/10/2022, Additional history exists O2 [...] Procedure Name Priority Date/Time Associated Diagnosis Comments CBC WITH WBC DIFFERENTIAL Routine 06/21/2022 documented in this encounter Results * (ABNORMAL) CBC WITH WBC DIFFERENTIAL (06/21/2022) HEMOGLOBIN-OUTSIDE LAB 9.9(A) 12.0 - 16.0 G/DL OUTSIDE LAB (SEE SCANNED REPORT) Specimen Blood - Venous blood specime n (specimen) Narrative OUTSIDE LAB (SEE SCANNED REPORT) documented in this encounter Visit Diagnoses Diagnosis Iron deficiency anemia, unspecified iron deficiency anemia type- Primary documented in this encounter Advance Directives Documents on File Type Date Recorded 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
--- OUTSIDE RECORDS SUMMARY | 2023-06-18 02:44 | External Medical Summary | Summary of Care ---
Author Name Unknown Organization [place] [address] Care Team Providers Care Steward/Stewardess Room Name Role Phone Marcela Pinto MD Primary Care Provider + Reason for Visit * Reason Comments Outpatient Testing Encounter Details Date Type Department Care Team Description 06/27/2022 Laboratory Laboratory [facility] [place] [address] [place] [address] [facility] [address] [place] [address] NICM (nonischemic cardiomyopathy) (HCC); Chronic systolic heart failure (HCC); Controlled substance agreement signed Allergies Active Allergy Reactions Severity Noted Date Comments Valsartan 07/10/2010 Enalapril 05/21/2006 Escitalopram Oxalate Nausea/vomiting 10/11/2009 Nauseated Iodinated Diagnostic Agents Nausea/vomiting 05/2010 IV Contrast Iodine Hives 12/18/2009 IV Contrast Metoprolol Tartrate 11/18/2006 Made pulse low [place] Oil-Black Currant-Vit E 07/10/2010 Verapamil 03/21/2004 Bupropion [...] Respimat 1.25 MCG/ACT Inhalation Aerosol Solution (Tiotropium [place] Monohydrate) Inhale by mouth 2 Puffs daily [...] Hypoxemia 10/08/2011 10/30/2015 Genetic Sleep Disorder Research Other*[id number] 07/25/2011 05/15/2016 COPD, moderate 07/19/2011 07/28/2019 Overview: [...] mRNA, LNP-s, No Pre serve, 2-Dose Series ([employer]) 08/21/2021,12/22/2020,2020 COVID-19, LNP-s, No Preserve , Tyler-sucrose, [...] Orthopedics Eliezer Gifford, DO [address] [place] [address] 07/08/2022 Office Visit General Surgery Teresita Padron PA-C [address] [facility] [place] [address] 07/11/2022 Office Visit Hematology Oncology Ida Cueva CRNP [address] [place] [address] [address] 10/10/2022 Office Visit Internal Medicine Marcela Pinto MD 200 [facility] [place] [address] 01/03/2023 Office Visit Cardiology Hammad Lopez, DO 132 [facility] [place] [address] Pending Results Name Type Priority Associated Diagnoses Date /Time PAIN MANAGEMENT DRUG PANEL, URINE W/ INTERPRETATION Lab Routine Controlled substance agreement signed 06/27/2022 3:41 PM EDT OPIOIDS, URINE CONFIRMATION Lab Routine Controlled substance agreement signed 06/27/2022 3:41 PM EDT Health Maintenance Due Date Last [...] Additional history exists CKD PHOS USE SMARTSET 49722 02/19/2023 05, 03/09/2021, 03/22/2019 DIABETES-EYE EXAM 03/08/2023 03/08/2022, , 08/07/2020, Additional history exists CKD HGB USE SMARTSET 34664 06/21/202306/21, 06/10/2022, 06/10/2022, Additional history exists O2 [...] Procedure Name Priority Date/Time Associated Diagnosis Comments PAIN MANAGEMENT DRUG PANEL, URINE W/ INTERPRETATION Routine 06/27/2022 3:41 PM EDT Controlled substance agreement signed BASIC METABOLIC PANEL Routine 06/27/2022 3:32 PM EDT NICM (nonischemic cardiomyopathy) (HCC) Chronic systolic heart failure (HCC) documented in this encounter Results * (ABNORMAL) BASIC METABOLIC PANEL (06/27/2022 3:32 PM EDT) BUN 14 6 - 20 mg/dL [facility] [place] [facility] Creatinine 0.8 0.5 - 1.0 mg/dL [facility] [place] [facility] Estimated Glomerular Filtration Rate 78Comment:eGFR is calculated based on the CKD-EPI 2020 equation >=60 mL/min [facility] [place] [facility] Sodium 135 135 - 146 mmol/L [facility] 56-02 Potassium 4.4 3.5 - 5.1 mmol/L [facility] [place] [facility]02 Chloride 97(L) 98 - 107 mmol/L [facility] 56- CO2 31 22 - 32 mmol/L [facility] 56-02 Anion Gap 7 7 - 15 mmol/L [facility] 56-02 Glucose 129(H) 70 - 120 mg/dL [facility] 56- Calcium 9.0 8.4 - 10.2 mg/dL [facility] 56-02 Specimen Blood - Venous blood specime n (specimen) Performing Organization Address City/State/[facility] Co de Phone Number [facility] 56-02 [address] [facility] [place] [address] documented in this encounter Visit Diagnoses Diagnosis NICM (nonischemic cardiomyopathy) (HCC) Other primary cardiomyopathies Chronic systolic heart failure (HCC) Chronic systolic heart failure Controlled substance agreement signed Encounter for long-term (current) use of other medications documented in this encounter Advance Directives Documents on File Type Date Recorded Patient Equipment Driver Expl anation Advanced 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 Directives occurred with: Not Discussed Care Teams Steward/Stewardess Room Relationship Specialty Start Date End Date Marcela Pinto MD 200 [place] [address] PCP - General Internal Medicine 08/04/14 documented as of this encounter
--- OUTSIDE RECORDS SUMMARY | 2023-06-18 02:44 | External Medical Summary | Summary of Care ---
Author Name Unknown Organization [place] [address] Care Team Providers Care Small Animal Caretaker Name Role Phone Marcela Pinto MD Primary Care Provider + Reason for Visit * Reason Comments Outpatient Testing Encounter Details Date Type Department Care Team Description 06/27/2022 Laboratory Laboratory [facility] [place] [address] [place] [address] [facility] [address] [place] [address] NICM (nonischemic cardiomyopathy) (HCC); Chronic systolic heart failure (HCC); Controlled substance agreement signed Allergies Active Allergy Reactions Severity Noted Date Comments Valsartan 07/10/2010 Enalapril 05/21/2006 Escitalopram Oxalate Nausea/vomiting 10/11/2009 Nauseated Iodinated Diagnostic Agents Nausea/vomiting 05/2010 IV Contrast Iodine Hives 12/18/2009 IV Contrast Metoprolol Tartrate 11/18/2006 Made pulse low Sneads Oil-Black Currant-Vit E 07/10/2010 Verapamil 03/21/2004 Bupropion Hcl 10/30/2009 Makes pt sick in the stomach documented as of this encounter (statuses as of 06/27/2022) Medications Medication Sig Dispensed Refills Start Date [...] Asthma with severity to be determined,COPD, moderate ([facility]) USE ONE NEBULIZER TREATMENT TWICE A DAY DIRECTED FOR WORSENING ASTHMA. J45.909, J44.9 225 mL 1 06/29/2019 Active Albuterol Sulfate (VENTOLIN HFA) 108 (90 Base) MCG/ACT AERS Inhale 2 Puffs by mouth 2 times a day. 0 12/27/2019 Active Lancets MISCIndications:Type 2 diabetes mellitus with hemoglobin A1c goal of less than 7.0% ([facility]) Use as directed. USE TO [...] Respimat 1.25 MCG/ACT Inhalation Aerosol Solution (Tiotropium [place] Monohydrate) Inhale by mouth 2 Puffs daily [...] as of this encounter (statuses as of 06/27/2022) Active Problems Problem Noted Date Ischemic colitis [...] as of this encounter (statuses as of 06/27/2022) Resolved Problems Problem Noted Date Resolved Date [...] Hypoxemia 10/08/2011 10/30/2015 Genetic Sleep Disorder Research Other*[id number] 07/25/2011 05/15/2016 COPD, moderate 07/19/2011 07/28/2019 Overview: [...] as of this encounter (statuses as of 06/27/2022) Immunizations Name Administration Dates Next Due COVID-19 mRNA, LNP-s, No Pre serve, 2-Dose Series ([email or web address]) 08/21/2021,12/22/2020,2020 COVID-19, LNP-s, No Preserve , Tyler-sucrose, [...] General Surgery Teresita Padron PA-C [address] [place], [place] [id number] 07/11/2022 Office Visit Hematology Oncology Ida Cueva CRNP [address] [facility] [place] [address] 10/10/2022 Office Visit Internal Medicine Marcela Pinto MD 200 [facility] [place] [address] 01/03/2023 Office Visit Cardiology Hammad Lopez DO [address] [place] [address] Pending Results Name Type Priority Associated Diagnoses [...] Additional history exists CKD PHOS USE SMARTSET 68605 02/19/2023 05, 03/09/2021, 03/22/2019 DIABETES-EYE EXAM 03/08/2023 03/08/2022, , 08/07/2020, Additional history exists CKD HGB USE SMARTSET 05030 06/21/202306/21, 06/10/2022, 06/10/2022, Additional history exists O2 ASSESSMENT COMPLETED IN PAST YEAR FOR COPD 06/25/2023 06/27/2022 DXA Scan 08/08/2025 08/08/2020, 04/13, 06/19/2010, [...] Associated Diagnosis Comments BASIC METABOLIC PANEL Routine 06/27/2022 3:32 PM EDT NICM (nonischemic cardiomyopathy) (HCC) Chronic systolic heart failure (HCC) documented in this encounter Results * (ABNORMAL) BASIC METABOLIC PANEL (06/27/2022 3:32 PM EDT) BUN 14 6 - 20 mg/dL LABORATORY STAT E [facility] 56- Creatinine 0.8 0.5 - 1.0 mg/dL LABORATORY [place] 56- Estimated Glomerular Filtration Rate 78Comment:eGFR is calculated based on the CKD-EPI 2020 equation >=60 mL/min LABORATORY [facility] 56- Sodium 135 135 - 146 mmol/L LAB[facility]AT[facility] 56- Potassium 4.4 3.5 - 5.1 mmol/L LAB[facility]ATORY [facility] 56- Chloride 97(L) 98 - 107 mmol/L LAB[facility]ATORY [facility] 56- CO2 31 22 - 32 mmol/L LAB[facility]ATORY [place] 56- Anion Gap 7 7 - 15 mmol/L LABORATORY [facility] TE [facility] 56- Glucose 129(H) 70 - 120 mg/dL LAB[facility]ATORY [place] 56- Calcium 9.0 8.4 - 10.2 mg/dL LAB[facility]ATORY [facility] 56-02 Specimen Blood - Venous blood specime n (specimen) LABORATORY [place] 56-02 [address] [place] [address] documented in this encounter Visit Diagnoses Diagnosis NICM (nonischemic cardiomyopathy) (HCC) Other primary cardiomyopathies Chronic systolic heart failure (HCC) Chronic systolic heart failure Controlled substance agreement signed Encounter for long-term (current) use of other medications documented in this encounter Advance Directives Documents on File Type Date Recorded Patient Hydraulic Tester Expl anation Advanced 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 Directives occurred with: Not Discussed Care Teams Small Animal Caretaker Relationship Specialty Start Date End Date Marcela P[facility] [address] [facility] [address] PCP - General Internal Medicine 08/04/14 documented as of this encounter
--- OUTSIDE RECORDS SUMMARY | 2023-06-18 02:44 | External Medical Summary ---
Author Name Unknown Address Unknown Organization K01:LABORATORY [facility] [place] - [address] [place] [address] Laboratory Report Ordering Provider Test Date Status JOSE A JOHNSON 06/27/2022 15:41:58 Final Observation Date Value Abnormality Reference (Units ) Status METHODOLOGY 06/27/2022 15:41:58 Final Codeine 06/27/2022 15:41:58 Negative Negative Final Morphine, Urine confirmatory 06/27/2022 15:41:58 Negative Negative Final Hydrocodone cutoff [Mass/volume] in Urine for Confirmatory method 06/27/2022 15:41:58 484 Above high normal Negative (ng/mL) Final Hydromorphone [Mass/volume] in Urine 06/27/2022 15:41:58 Negative Negative Final Dihydrocodeine [Mass/volume] in Urine by Confirmatory method 06/27/2022 15:41:58 1476 Above high normal Negative (ng/mL) Final Oxycodone [Presence] in Urine by Screen method 06/27/2022 15:41:58 Negative Negative Final oxyMORphone cutoff [Mass/volume] in Urine for Confirmatory method 06/27/2022 15:41:58 Negative Negative Final Performing Location LABORATORY [facility] - [facility] [place] [address]
--- OUTSIDE RECORDS SUMMARY | 2023-06-18 02:44 | External Medical Summary ---
Author Name Unknown Address Unknown Organization K01:LABORATORY [facility] - [address] [place] [address] Laboratory Report Ordering Provider Test Date Status JOSE A JOHNSON 06/27/2022 15:41:58 Final Observation Date Value Abnormality Reference (Units) Status COMPLIANCE INTERPRETATION 06/27/2022 15:41:58 Based on the medication information provided: Final COMPLIANCE INTERPRETATION 06/27/2022 15:41:58 The presence of hydrocodone and dihydrocodeine is CONSISTENT with hydrocodone use. Final Performing Location LABORATORY [facility] - [address] [place] [place] [address]
--- OUTSIDE RECORDS SUMMARY | 2023-06-18 02:44 | External Medical Summary | Summary of Care ---
Author Name Unknown Organization [place] [address] Care Team Providers Care Allied Health Instructor Name Role Phone Marcela Pinto MD Primary Care Provider + Encounter Details Date Type Department Care Team Description 06/27/2022 Result Scan Unspecified Department <No scans attached> Allergies Active Allergy Reactions Severity Noted Date Comments Valsartan 07/10/2010 Enalapril 05/21/2006 Escitalopram Oxalate Nausea/vomiting 10/11/2009 Nauseated Iodinated Diagnostic Agents Nausea/vomiting 05/2010 IV Contrast Iodine Hives 12/18/2009 IV Contrast Metoprolol Tartrate 11/18/2006 Made pulse low [place] Oil-Black Currant-Vit E 07/10/2010 Verapamil 03/21/2004 Bupropion [...] be determined,COPD, moderate ([facility]) USE ONE NEBULIZER TREATMENT TWICE A DAY DIRECTED FOR WORSENING ASTHMA. J45.909, J44.9 225 mL 1 06/29/2019 Active Albuterol Sulfate (VENTOLIN HFA) 108 (90 Base) MCG/ACT AERS Inhale 2 Puffs by mouth 2 times a day. 0 12/27/2019 Active Lancets MISCIndications:Type 2 diabetes mellitus with hemoglobin A1c goal of less than 7.0% ([facility]) Use as directed. USE TO TEST BLOOD [...] MEQ Oral Tablet Extended Release (Potassium Chloride Annalias ER)Indications:HTN, goal below 140/90 TAKE 1 TABLET BY MOUTH EVERY DAY 90 Tablet 3 09/28/2021 Active Metoprolol Succinate ER 25 MG Oral Tablet Extended Release 24 Hour (toPROL XL)Indications:Chron ic 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 ([facility]),NICM (nonischemic cardiomyopathy) ([facility]),Presence of Watchman left atrial appendage closure device Take 1 tab in the morning and 1/2 tab in the evening. 135 Tablet 3 10/04/2021 Active Spiriva Respimat 1.25 MCG/ACT Inhalation Aerosol Solution (Tiotropium [place] Monohydrate) Inhale by mouth 2 Puffs daily [...] Hypoxemia 10/08/2011 10/30/2015 Genetic Sleep Disorder Research Other*[id number] 07/25/2011 05/15/2016 COPD, moderate 07/19/2011 07/28/2019 Overview: [...] Office Visit Orthopedics Eliezer Gifford, DO [address] [facility] [address] 07/08/2022 Office Visit General Surgery Teresita Padron PA-C [address] [place], [place] [phone] 07/11/2022 Office Visit Hematology Oncology Ida Cueva CRNP 400 [facility] [place] [id number] 10/10/2022 Office Visit Internal Medicine Marcela Pinto MD [address] [place] [address] 01/03/2023 Office Visit Cardiology Hammad Lopez, DO 132 [facility] [place] [address] Health Maintenance Due Date Last Done Comments [...] Additional history exists CKD PHOS USE SMARTSET 51133 02/19/2023 05, 03/09/2021, 03/22/2019 DIABETES-EYE EXAM 03/08/2023 03/08/2022, , 08/07/2020, Additional history exists CKD HGB USE SMARTSET 16697 06/21/202306/21, 06/10/2022, 06/10/2022, Additional history exists O2 [...] Date/Time Associated Diagnosis Comments RADIOLOGY SCANNED RESULT 06/27/2022 RADIOLOGY SCANNED RESULT 06/27/2022 RADIOLOGY SCANNED RESULT 06/27/2022 documented in this encounter Results * RADIOLOGY SCANNED RESULT (06/27/2022) Specimen Narrative * RADIOLOGY SCANNED RESULT (06/27/2022) Specimen Narrative * RADIOLOGY SCANNED RESULT (06/27/2022) Specimen Narrative documented in this encounter Advance Directives Documents on File Type Date Recorded Patient Child Support Agent Expl anation Advanced 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 Directives occurred with: Not Discussed Care Teams Allied Health Instructor Relationship Specialty Start Date End Date Marcela Pinto MD [address] [facility] [place] [address] PCP - General Internal Medicine 08/04/14 documented as of this encounter
--- OUTSIDE RECORDS SUMMARY | 2023-06-18 02:44 | External Medical Summary | Summary of Care ---
Author Name Unknown Organization [place] [address] Care Team Providers Care Labor Gang Supervisor Name Role Phone Marcela Pinto MD Primary Care Provider + Encounter Details Date Type Department Care Team Description 06/27/2022 Scan Encounter General Internal Medicine [facility] 200 [facility] [place], [place] [id number] Marcela Pinto MD [address] [place] [address] <No scans attached> Allergies Active Allergy Reactions Severity Noted Date Comments Valsartan 07/10/2010 Enalapril 05/21/2006 Escitalopram Oxalate Nausea/vomiting 10/11/2009 Nauseated Iodinated Diagnostic Agents Nausea/vomiting 05/2010 IV Contrast Iodine Hives 12/18/2009 IV Contrast Metoprolol Tartrate 11/18/2006 Made pulse low [place] Oil-Black Currant-Vit E 07/10/2010 Verapamil 03/21/2004 Bupropion [...] Respimat 1.25 MCG/ACT Inhalation Aerosol Solution (Tiotropium [place] Monohydrate) Inhale by mouth 2 Puffs daily [...] WITH BREAKFAST 90 Tablet 1 02/07/2022 Active DelilahLeroy Brothers Vermichelle In Vitro Strip (Glucose Blood) Checks [...] Hypoxemia 10/08/2011 10/30/2015 Genetic Sleep Disorder Research Other*[id number] 07/25/2011 05/15/2016 COPD, moderate 07/19/2011 07/28/2019 Overview: [...] mRNA, LNP-s, No Pre serve, 2-Dose Series ([employer]) 08/21/2021,12/22/2020,2020 COVID-19, LNP-s, No Preserve , Tyler-sucrose, [...] Office Visit Orthopedics Eliezer Gifford, DO 132 [facility] [place] [address] 07/08/2022 Office Visit General Surgery Teresita Padron PA-C [address] [facility] [place] [address] 07/11/2022 Office Visit Hematology Oncology Ida Cueva CRNP 400 [place] [address] 10/10/2022 Office Visit Internal Medicine Marcela Pinto MD 200 [facility] [place] [address] 01/03/2023 Office Visit Cardiology Hammad Lopez, [address] [place] [address] Health Maintenance Due Date Last Done Comments [...] Additional history exists CKD PHOS USE SMARTSET 12472 02/19/202302/10, 03/09/2021, 03/22/2019 DIABETES-EYE EXAM 03/08/2023 03/08/2022, , 08/07/2020, Additional history exists CKD HGB USE SMARTSET 30053 06/21/202306/21, 06/10/2022, 06/10/2022, Additional history exists O2 [...] Documents on File Type Date Recorded Patient Lead Customer Service Representative Expl anation Advanced 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 Directives occurred with: Not Discussed Care Teams Labor Gang Supervisor Relationship Specialty Start Date End Date Marcela Pinto MD 200 [place] [address] PCP - General Internal Medicine 08/04/14 documented as of this encounter
--- OUTSIDE RECORDS SUMMARY | 2023-06-18 02:44 | External Medical Summary | Summary of Care ---
Author Name Unknown Organization [place] [address] Care Team Providers Care Boom Tender Name Role Phone Marcela Pinto MD Primary Care Provider + Reason for Visit * Reason Comments NEW PATIENT right shoulder * Evaluate & Treat - Unlimited Visits (Within 10 days (routine)) - Authorized Specialty Diagnoses / Procedures Referred By Contnesha t Referred To Contact Orthopaedic Surgery / Orthopedics Diagnoses Pain in joint of right shoulder Marcela Pinto MD [address] [place] [address] Referral ID Status Reason Start Date Expiration Date Visits Requested Visits Authorized [id number] Authorized Specialty Services Required 06/27/2022 999 999 Encounter Details Date Type Department Care Team Description 07/01/2022 Office Visit Orthopaedics [facility] [address] [place] [address] Eliezer Gifford, DO [address] [place] [address] Primary osteoarthritis of right shoulder*; Nontraumatic complete tear of right rotator cuff Allergies Active Allergy Reactions Severity Noted Date Comments Valsartan 07/10/2010 Enalapril 05/21/2006 Escitalopram Oxalate Nausea/vomiting 10/11/2009 Nauseated Iodinated Diagnostic Agents Nausea/vomiting 05/2010 IV Contrast Iodine Hives 12/18/2009 IV Contrast Metoprolol Tartrate 11/18/2006 Made pulse low [place] Oil-Black Currant-Vit E 07/10/2010 Verapamil 03/21/2004 Bupropion [...] fraction and diastolic dysfunction (HCC),NICM (nonischemic cardiomyopathy) ([facility]),Presence of Watchman left atrial appendage closure device Take 1 tab in the morning and 1/2 tab in the evening. 135 Tablet 3 10/04/2021 Active Spiriva Respimat 1.25 MCG/ACT Inhalation Aerosol Solution (Tiotropium [place] Monohydrate) Inhale by mouth 2 Puffs daily [...] Hypoxemia 10/08/2011 10/30/2015 Genetic Sleep Disorder Research Other*[id number] 07/25/2011 05/15/2016 COPD, moderate 07/19/2011 07/28/2019 Overview: [...] mRNA, LNP-s, No Pre serve, 2-Dose Series ([employer]) 08/21/2021,12/22/2020,2020 COVID-19, LNP-s, No Preserve , Tyler-sucrose, [...] - 07/01/2022 2:30 PM EDT Nina Harrington [id number] Nina Harrington is a 81 year old female who [facility] Medicinefor [facility] shoulder [facility]/pain. 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 Tobacco Use Smoking status: Never Smoker Smokeless [...] Respimat 1.25 MCG/ACT Inhalation Aerosol Solution (Tiotropium [place] Monohydrate) Inhale by mouth 2 Puffs daily [...] MOUTH EVERY DAY WITH BREAKFAST 90 Tablet1 OneToLoc[employer] Verio In Vitro Strip (Glucose Blood) Checks [...] Gifford DO Primary Care Sports Medicine Orthopaedics [address] [place] [address] Procedure note (shoulder glenohumoral joint injection) on [...] General Surgery Teresita Padron PA-C [address] [place] [address] 07/11/2022 Office Visit Hematology Oncology Ida Cueva CRNP 400 [facility] [place] [address] 10/08/2022 Office Visit Orthopedics Eliezer Gifford, DO [address] [facility] [address] 10/10/2022 Office Visit Internal Medicine Marcela Pinto MD 200 [place] [address] 01/03/2023 Office Visit Cardiology Hammad Lopez, DO [address] [facility] [place] [address] Pending Results Name Type Priority Associated Diagnoses [...] Additional history exists CKD PHOS USE SMARTSET 24008 02/19/202302/10, 03/09/2021, 03/22/2019 DIABETES-EYE EXAM 03/08/2023 03/08/2022, , 08/07/2020, Additional history exists CKD HGB USE SMARTSET 57588 06/21/202306/21, 06/10/2022, 06/10/2022, Additional history exists O2 [...] Documents on File Type Date Recorded Patient Business Employment Specialist Expl 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 Directives occurred with: Not Discussed Care Teams Boom Tender Relationship Specialty Start Date End Date Marcela Pinto MD [address] [facility] [place] [address] PCP - General Internal Medicine 08/04/14 documented as of this encounter
--- OUTSIDE RECORDS SUMMARY | 2023-06-18 02:44 | External Medical Summary | Summary of Care ---
Author Name Unknown Organization [place] [address] Care Team Providers Care Body Press Operator Name Role Phone Alex Pinto MD Primary Care Provider + Reason for Referral * Evaluate & Treat - Unlimited Visits (Within 10 days (routine)) - Authorized Specialty Diagnoses / Procedures Referred By Miguel Angel roe Referred To Contact Orthopaedic Surgery / Orthopedics Diagnoses Pain in joint of right shoulder Alex Pinto MD [address] [place] [address] Referral ID Status Reason Start Date Expiration Date Visits Requested Visits Authorized [id number] Authorized Specialty Services Required 06/27/2022 999 999 [...] State [place] [address] [place] [address] Alex Pinto MD [address] [place] [address] Diverticulitis of colon*; Need for prophylactic vaccination [...] Contrast Metoprolol Tartrate 11/18/2006 Made pulse low [place] Oil-Black Currant-Vit E 07/10/2010 Verapamil 03/21/2004 Bupropion [...] to be determined,COPD, moderate ([facility]) USE ONE NEBULIZER TREATMENT TWICE A DAY DIRECTED FOR WORSENING ASTHMA. J45.909, J44.9 225 mL 1 06/29/2019 Active Albuterol Sulfate (VENTOLIN HFA) 108 (90 Base) MCG/ACT AERS Inhale 2 Puffs by mouth 2 times a day. 0 12/27/2019 Active Lancets MISCIndications:Type 2 diabetes mellitus with hemoglobin A1c goal of less than 7.0% ([facility]) Use as directed. USE TO TEST BLOOD SUGAR 3 TIMES A DAY FOR DIAGNOSIS CODE OF E11.9 300 Each 1 01/05/2020 Active IdeaSquaresSens N Voice System Device Use as directed. [...] Respimat 1.25 MCG/ACT Inhalation Aerosol Solution (Tiotropium [place] Monohydrate) Inhale by mouth 2 Puffs daily . 0 Active Lisinopril 2.5 MG Oral Tablet (Prinivil)Indication s:Paroxysmal atrial fibrillation ([facility]),Chronic systolic heart failure ([facility]) Take by mouth 1 Tablet in the [...] WITH BREAKFAST 90 Tablet 1 02/07/2022 Active OneToBox & Automation Solutionsio In Vitro Strip (Glucose Blood) Checks blood [...] Hypoxemia 10/08/2011 10/30/2015 Genetic Sleep Disorder Research Other*[id number] 07/25/2011 05/15/2016 COPD, moderate 07/19/2011 07/28/2019 Overview: [...] as of this encounter Progress Notes * Alex Pinto MD - 06/27/2022 2:48 PM EDT [...] Inj) As per hospital admission note at [place]: ADMISSION HISTORY & PHYSICAL EXAM (focused): Nina Harrington is a 81 year old female who presents withcomplicated diverticulitis.Patient reports she has hadleftsided abdominal pain on and off for yearsand has had several episodes of diverticulitis.She initially presented [facility] on Friday (05/31) aftershe saw her [...] a colovesical fistula. She was transferred to [facility] due to failure to significantly improve. This morning her WBC was 8.Today she reports she's not in much painnowbut was in a lot of pain when first admitted at [facility]. Reports history of diverticulitis. Denies fevers, chills, [...] an antibiotics. Has f/u with surgery at [facility] on 07/08/22. Need for prophylactic vaccination and [...] symptoms or fever? No Have you had Guillain-Moore Syndrome (an illness that causes paralysis) within [...] Addendum Note - Alex Pinto MD - 06/27/2022 3:18 PM EDT Addended by: ALEX PINTO on: 06/27/2022 03:18 PM Modules accepted: Orders, SmartSet documented in this encounter Plan of Treatment Upcoming Encounters Date Type Specialty Care Team Description 07/08/2022 Office Visit General Surgery Teresita Padron PA-C [address] [place] [address] 07/11/2022 Office Visit Hematology Oncology [facility]da [facility]ueva CRNP [facility] [place] [id number] 01/03/2023 Office Visit Cardiology Hammad Lopez, DO 132 [facility] [place] [address] Scheduled Orders Name Type Priority Associated Diagnoses Orde r Schedule PAIN MANAGEMENT DRUG PANEL, URINE W/ INTERPRETATION Lab Routine Controlled substance agreement signed Expected: 06/27/2022, Expires: 06/27/2023 Scheduled Referrals Name Type Priority Associated Diagnoses [...] Additional history exists GFR - Renal Function 12/19/2022 06/21/2022, 06/10/2022, 06/09/2022, Additional history exists Alb / Creat Ratio 02/19/2023 02/19/2022, , 07/27/2018, Additional history exists CKD PHOS USE SMARTSET 24490 02/19/202302/10, 03/09/2021, 03/22/2019 DIABETES-EYE EXAM 03/08/2023 03/08/2022, , 08/07/2020, Additional history exists CKD HGB USE SMARTSET 85889 06/21/202306/21, 06/10/2022, 06/10/2022, Additional history exists O2 [...] Documents on File Type Date Recorded Patient Multimedia Instructional Designer Expl anation Advanced 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 Directives occurred with: Not Discussed Care Teams Body Press Operator Relationship Specialty Start Date End Date Alex Pinto MD 200 [place] [address] PCP - General Internal Medicine 08/04/14 documented as of this encounter
--- OUTSIDE RECORDS SUMMARY | 2023-06-18 02:44 | External Medical Summary | Summary of Care ---
Author Name Unknown Organization [place] [address] Care Team Providers Care Child Caregiver Private Home Name Role Phone Marcela Pinto MD Primary Care Provider + Reason for Referral * Evaluate & Treat - Unlimited Visits (Within 10 days (routine)) - Authorized Specialty Diagnoses / Procedures Referred By Miguel Angel roe Referred To Contact Orthopaedic Surgery / Orthopedics Diagnoses Pain in joint of right shoulder Marcela Pinto MD [address] [place] [address] Referral ID Status Reason Start Date Expiration Date Visits Requested Visits Authorized [id number] Authorized Specialty Services Required 06/27/2022 999 999 [...] State [place] [address] [place] [address] Marcela Pinto MD [address] [place] [address] [address] Diverticulitis of colon*; Need for prophylactic vaccination [...] Contrast Metoprolol Tartrate 11/18/2006 Made pulse low [place] Oil-Black Currant-Vit E 07/10/2010 Verapamil 03/21/2004 Bupropion [...] determined,COPD, moderate ([facility]) USE ONE NEBULIZER TREATMENT TWICE A DAY DIRECTED FOR WORSENING ASTHMA. J45.909, J44.9 225 mL 1 06/29/2019 Active Albuterol Sulfate (VENTOLIN HFA) 108 (90 Base) MCG/ACT AERS Inhale 2 Puffs by mouth 2 times a day. 0 12/27/2019 Active Lancets MISCIndications:Type 2 diabetes mellitus with hemoglobin A1c goal of less than 7.0% ([facility]) Use as directed. USE TO TEST BLOOD SUGAR 3 TIMES A DAY FOR DIAGNOSIS CODE OF E11.9 300 Each 1 01/05/2020 Active SplingSens N Voice System Device Use as directed. [...] Respimat 1.25 MCG/ACT Inhalation Aerosol Solution (Tiotropium [place] Monohydrate) Inhale by mouth 2 Puffs daily . 0 Active Lisinopril 2.5 MG Oral Tablet (Prinivil)Indication s:Paroxysmal atrial fibrillation ([facility]),Chronic systolic heart failure ([facility]) Take by mouth 1 Tablet in [...] WITH BREAKFAST 90 Tablet 1 02/07/2022 Active OneToLootWorksio In Vitro Strip (Glucose Blood) Checks blood [...] Hypoxemia 10/08/2011 10/30/2015 Genetic Sleep Disorder Research Other*[id number] 07/25/2011 05/15/2016 COPD, moderate 07/19/2011 07/28/2019 Overview: [...] Inj) As per hospital admission note at [place]: ADMISSION HISTORY & PHYSICAL EXAM (focused): Nina Harrington is a 81 year old female who presents withcomplicated diverticulitis.Patient reports she has hadleftsided abdominal pain on and off for yearsand has had several episodes of diverticulitis.She initially presented [facility] on Friday (05/31) aftershe saw her [...] a colovesical fistula. She was transferred to [facility] due to failure to significantly improve. This morning her WBC was 8.Today she reports she's not in much painnowbut was in a lot of pain when first admitted at [facility]. Reports history of diverticulitis. Denies fevers, chills, [...] an antibiotics. Has f/u with surgery at [place] on 07/08/22. Need for prophylactic vaccination and [...] symptoms or fever? No Have you had Guillain-[place] Syndrome (an illness that causes paralysis) within [...] Encounters Date Type Specialty Care Team Description 06/27/2022 Laboratory Laboratory [facility], [facility] [address] [place] [address] NICM (nonischemic cardiomyopathy) (HCC); Chronic systolic heart failure (HCC) 07/08/2022 Office Visit General Surgery Teresita Padron PA-C [address] [place] [address] 07/11/2022 Office Visit Hematology Oncology Ida Cueva CRNP [address] [facility] [place] [id number] 10/10/2022 Office Visit Internal Medicine Marcela Pinto MD [address] [place] [address] 01/03/2023 Office Visit Cardiology Hammad Lopez, DO [address] [place] [address] Scheduled Orders Name Type Priority Associated Diagnoses [...] Additional history exists CKD PHOS USE SMARTSET 21008 02/19/202302/10, 03/09/2021, 03/22/2019 DIABETES-EYE EXAM 03/08/2023 03/08/2022, , 08/07/2020, Additional history exists CKD HGB USE SMARTSET 48065 06/21/202306/21, 06/10/2022, 06/10/2022, Additional history exists O2 ASSESSMENT COMPLETED IN PAST YEAR FOR COPD 06/25/2023 06/27/2022 DXA Scan 08/08/2025 08/08/2020, 07/, 06/19/2010, [...] for long-term (current) use of other medications NICM (nonischemic cardiomyopathy) (HCC) Other primary cardiomyopathies Chronic systolic heart failure (HCC) Chronic systolic heart failure documented in this encounter Advance Directives Documents on File Type Date Recorded 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
--- OUTSIDE RECORDS SUMMARY | 2023-06-18 02:45 | External Medical Summary ---
Author Name Unknown Address Unknown Organization K09:[facility] [place] [address] Laboratory Report Ordering Provider Test Date Status KIMBERLY LITTLEJOHN 06/27/2022 15:32:10 Final Observation Date Value Abnormality Reference (Units ) Status BUN 06/27/2022 15:32:10 14 6-20 (mg/dL) Final Creatinine 06/27/2022 15:32:10 0.8 0.5-1.0 (mg/dL) Final Glomerular filtration rate/1.73 sq M.predicted [Volume Rate/Area] in Serum, Plasma or Blood by Creatinine-based formula (CKD-EPI) 06/27/2022 15:32:10 78 >=60 (mL/min) Final Performing Location [facility] [place] [address]
--- OUTSIDE RECORDS SUMMARY | 2023-06-18 02:45 | External Medical Summary | Summary of Care ---
Author Name Unknown Organization [place] [address] Care Team Providers Care Forging Press Lever Tender Name Role Phone Marcela Pinto MD Primary Care Provider + Reason for Visit * Reason Onset Date Comments Home Health 06/14/2022 UPDATE Encounter Details Date Type Department Care Team Description 06/14/2022 Telephone General Internal Medicine [facility] [address] [place] [address] Marcela Pinto MD [address] [place] [address] Home Health (UPDATE ) Allergies Active Allergy Reactions Severity Noted Date Comments Valsartan 07/10/2010 Enalapril 05/21/2006 Escitalopram Oxalate Nausea/vomiting 10/11/2009 Nauseated Iodinated Diagnostic Agents Nausea/vomiting 05/2010 IV Contrast Iodine Hives 12/18/2009 IV Contrast Metoprolol Tartrate 11/18/2006 Made pulse low [place] Oil-Black Currant-Vit E 07/10/2010 Verapamil 03/21/2004 Bupropion Hcl 10/30/2009 Makes pt sick in the stomach documented as of this encounter (statuses as of 06/20/2022) Medications Medication Sig Dispensed Refills Start Date [...] times a day. 0 12/27/2019 Active Lancets MISCIndications:Typ e 2 diabetes mellitus [...] Oral Tablet Extended Release 24 Hour (toPROL XL)Indications:Systems Technician akin 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 135 Tablet 3 10/04/2021 Active Spiriva Respimat 1.25 MCG/ACT Inhalation Aerosol Solution (Tiotropium [place] Monohydrate) Inhale by mouth. 0 Active Lisinopril 2.5 MG Oral Tablet [...] 12/27/2021 Active methIMAzole 10 MG Oral Tablet (Tapazole)Indicatio ns:Hyperthyroidism TAKE 1 TABLET BY MOUTH EVERY DAY 90 Tablet 1 01/10/2022 Active Ipratropium-Albuter ol 20-100 MCG/ACT Inhalation Aerosol [...] FOR NAUSEA 60 Tablet 2 05/03/2022 Active predniSONE 50 MG Oral Tablet (Deltasone)Indicati ons:Lower abdominal pain,Diverticulitis of colon Take 1 tab 13 hrs before scan, take 1 tab 7 hrs before scan, take 1 tab 1 hr before scan with Benadryl 3 Tablet 0 05/13/2022 Active HYDROcodone-Acetami nophen 5-325 MG Oral TabletIndications:G [...] A DAY 180 Capsule 3 06/14/2022 Active Furosemide 40 MG Oral Tablet (Lasix)Indications: Chronic systolic heart failure (HCC),Paroxysmal atrial fibrillation (HCC),Chronic 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),NICM (nonischemic cardiomyopathy) (HCC),Chronic atrial fibrillation (HCC),Hospital discharge follow-up,Presence of Watchman left atrial appendage closure device TAKE 1 TABLET BY MOUTH IN THE MORNING, AND 1/2 TABLET IN THE EVENING 135 Tablet 3 06/14/2022 Active Ondansetron 8 MG Oral Tablet Disintegrating (Zofran) DISSOLVE 1 TABLET ON TONGUE EVERY 8 HOURS NEEDED FOR NAUSEA 60 Tablet 5 06/14/2022 Active Ciprofloxacin HCl 500 MG Oral Tablet (Cipro) Take by mouth 1 Tablet in the morning AND 1 Tablet before bedtime. Do all this for 12 days. 24 Tablet 0 06/07/2022 2 metroNIDAZOLE 500 MG Oral Tablet Take by mouth 1 Tablet in the morning AND 1 Tablet at noon AND 1 Tablet before bedtime. Do all this for 12 days. 36 Tablet 0 06/07/2022 2 documented as of this encounter (statuses as of 06/20/2022) Active Problems Problem Noted Date Gastroparesis 05/13/2022 Type 2 diabetes mellitus wit [...] as of this encounter (statuses as of 06/20/2022) Resolved Problems Problem Noted Date Resolved Date [...] Hypoxemia 10/08/2011 10/30/2015 Genetic Sleep Disorder Research Other*[id number] 07/25/2011 05/15/2016 COPD, moderate 07/19/2011 07/28/2019 Overview: [...] as of this encounter (statuses as of 06/20/2022) Immunizations Name Administration Dates Next Due COVID-19 mRNA, LNP-s, No Pre serve, 2-Dose Series ([employer]) 08/21/2021,12/22/2020,2020 COVID-19, LNP-s, No Preserve , Tyler-sucrose, Ages 12+ (Pfizer) 04/16/2022 Hepatitis B, 20+ yrs 10/01/2017,04/21/2017,03/20 Pneumococcal Conjugate Vacc, 13 Valent (Prevnar) 03/28/2015 Pneumococcal Polysaccharide PPV23 (Pneumovax) 05/21/2006 Seasonal Influenza, Quadriva lent Hd (Fluzone Hd) 07/10/2021 Seasonal Influenza, Quadriva lent, No Preserve, 6 [...] 06/19/2022 8:55 AM EDT Nieves APPIAH from [facility] with an update. Seeing patient currently. Weight [...] 06/14/2022 2:21 PM EDT Nieves calling from [facility]. Patient is home. Opened up today for [...] Encounters Date Type Specialty Care Team Description 06/25/2022 Office Visit Cardiology Hammad Lopez, [address] [place] [address] 06/27/2022 Office Visit Internal Medicine Marcela Pinto MD [address] [place] [address] 07/08/2022 Office Visit General Surgery Teresita Padron PA-C [address] [place] [address] 07/11/2022 Office Visit Hematology Oncology Ida Cueva CRNP [address] [place] [address] [place] [address] Scheduled Orders Name Type Priority Associated Diagnoses Orde r Schedule COMPREHENSIVE METABOLIC PANEL Lab Routine Pitting edema Abdominal pain, left lower quadrant Expected: 06/20/2022 (Approximate), Expires: 06/20/2023 CBC WITH WBC DIFFERENTIAL Lab Routine SOB (shortness of breath) Abdominal pain, left lower quadrant Expected: 06/20/2022 (Approximate), Expires: 06/20/2023 LIPASE Lab Routine Abdominal pain, left lower quadrant Expected: 06/20/2022 (Approximate), Expires: 06/20/2023 BNP (NT-PROBNP) Lab STAT Pitting edema Ordered: 06/20/2022 Health Maintenance Due Date Last Done Comments Zoster Vaccines (2 of 3) 08/31/2012 07/06/2012 Influenza Vaccine (FLU shot) (#1) 2022 07/10/2021, 06/22/2020, 07/09/2019, Additional history exists Depression Screening, Annual for Pts 12 and Over 08/08/2022 08/08/2021 COVID-19 Vaccine (5 - Booster for Pfizer series) 08/17/2022 04/16/2022, 08/21/2021, 12/22/2020, Additional history exists DIABETES-FOOT EXAM 11/19/2022 11/19/2021, 0 12/21/2020, 10/19/2019, Additional history exists DIABETES-HGBA1C EVERY 6 MONTHS 12/08/2022 06/07/2022, 02/19/2022, 08/23/2021, Additional history exists GFR - Renal Function 12/10/2022 06/10/2022, 06/09/2022, 06/08/2022, Additional history exists Alb / Creat Ratio 02/19/2023 02/19/2022, , 07/27/2018, Additional history exists CKD PHOS USE SMARTSET 81903 02/19/2023 05, 03/09/2021, 03/22/2019 DIABETES-EYE EXAM 03/08/2023 03/08/2022, , 08/07/2020, Additional history exists CKD HGB USE SMARTSET 91185 06/10/202306/10, 06/10/2022, 06/09/2022, Additional history exists O2 ASSESSMENT COMPLETED IN PAST YEAR FOR COPD 06/10/2023 06/10/2022 DXA Scan 08/08/2025 08/08/2020, 04/13, 06/19/2010, Additional history exists DTaP,Tdap,and Td Vaccines (2 - Td or Tdap) 06/04/2028 06/04/2018, 02/28/2009 Pneumococcal Vaccine: 65+ Years Completed 03/28/2015, 05/21/2006 Hepatitis B Aged Out 10/01/2017, 04/12, 03/20/2017 No longer eligible based on patient's age to complete this topic GARDASIL-HPV IMMUNIZATION SERIES Aged Out No longer [...] Documents on File Type Date Recorded 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
--- OUTSIDE RECORDS SUMMARY | 2023-06-18 02:45 | External Medical Summary | Summary of Care ---
Author Name Unknown Organization [place] [address] Care Team Providers Care Product Safety Head Name Role Phone Marcela Pinto MD Primary Care Provider + Encounter Details Date Type Department Care Team Description 06/24/2022 Orders Only General Internal Medicine [facility] [address] [facility] [place] [address] Marcela Pinto MD [address] [place] [address] Allergies Active Allergy Reactions Severity Noted Date Comments Valsartan 07/10/2010 Enalapril 05/21/2006 Escitalopram Oxalate Nausea/vomiting 10/11/2009 Nauseated Iodinated Diagnostic Agents Nausea/vomiting 05/2010 IV Contrast Iodine Hives 12/18/2009 IV Contrast Metoprolol Tartrate 11/18/2006 Made pulse low [place] Oil-Black Currant-Vit E 07/10/2010 Verapamil 03/21/2004 Bupropion Hcl 10/30/2009 Makes pt sick in the stomach documented as of this encounter (statuses as of 06/24/2022) Medications Medication Sig Dispensed Refills Start Date [...] determined,COPD, moderate ([facility]) USE ONE NEBULIZER TREATMENT TWICE A DAY DIRECTED FOR WORSENING ASTHMA. J45.909, J44.9 225 mL 1 06/29/2019 Active Albuterol Sulfate (VENTOLIN HFA) 108 (90 Base) MCG/ACT AERS Inhale 2 Puffs by mouth 2 times a day. 0 12/27/2019 Active Lancets MISCIndications:Type 2 diabetes mellitus with hemoglobin A1c goal of less than 7.0% ([facility]) Use as directed. USE TO TEST [...] diastolic dysfunction ([facility]),NICM (nonischemic cardiomyopathy) ([facility]),Presence of Watchman left atrial appendage closure device Take 1 tab in the morning and 1/2 tab in the evening. 135 Tablet 3 10/04/2021 Active Spiriva Respimat 1.25 MCG/ACT Inhalation Aerosol Solution (Tiotropium [place] Monohydrate) Inhale by mouth. 0 Active Lisinopril [...] EVERY DAY 90 Tablet 1 01/10/2022 Active Ipratropium-Albutero l 20-100 MCG/ACT Inhalation Aerosol [...] 05/03/2022 Active predniSONE 50 MG Oral Tablet (Deltasone)Indicatio ns:Lower abdominal pain,Diverticulitis of colon Take 1 tab 13 hrs before scan, take 1 tab 7 hrs before scan, take 1 tab 1 hr before scan with Benadryl 3 Tablet 0 05/13/2022 Active HYDROcodone-Acetamin ophen 5-325 MG Oral TabletIndications:Ge [...] 06/14/2022 Active Furosemide 40 MG Oral Tablet (Lasix)Indications:C hronic systolic heart failure (HCC),Paroxysmal atrial fibrillation (HCC),Chronic [...] FOR NAUSEA 60 Tablet 5 06/14/2022 Active documented as of this encounter (statuses as of 06/24/2022) Active Problems Problem Noted Date Gastroparesis 05/13/2022 [...] as of this encounter (statuses as of 06/24/2022) Resolved Problems Problem Noted Date Resolved Date [...] Hypoxemia 10/08/2011 10/30/2015 Genetic Sleep Disorder Research Other*[id number] 07/25/2011 05/15/2016 COPD, moderate 07/19/2011 07/28/2019 Overview: [...] as of this encounter (statuses as of 06/24/2022) Immunizations Name Administration Dates Next Due COVID-19 mRNA, LNP-s, No Pre serve, 2-Dose Series ([employer]) 08/21/2021,12/22/2020,2020 COVID-19, LNP-s, No Preserve , Tyler-sucrose, [...] Description 06/25/2022 Office Visit Cardiology Hammad Lopez, DO [address] [facility] [place] [address] 06/27/2022 Office Visit Internal Medicine Marcela Pinto MD [address] [place] [address] 07/08/2022 Office Visit General Surgery Teresita Padron PA-C [address] [place] [address] 07/11/2022 Office Visit Hematology Oncology Ida Cueva CRNP [address] [place] [address] Health Maintenance Due Date Last Done Comments [...] Additional history exists CKD PHOS USE SMARTSET 90407 02/19/2023 05, 03/09/2021, 03/22/2019 DIABETES-EYE EXAM 03/08/2023 03/08/2022, , 08/07/2020, Additional history exists O2 ASSESSMENT COMPLETED IN PAST YEAR FOR COPD 06/10/2023 06/10/2022 CKD HGB USE SMARTSET 14211 06/21/202306/21, 06/10/2022, 06/10/2022, Additional history exists DXA Scan 08/08/2025 08/08/2020, [...] Priority Date/Time Associated Diagnosis Comments CHEMISTRY-OUTSIDE Routine 06/21/2022 documented in this encounter Results * (ABNORMAL) CHEMISTRY-OUTSIDE (06/21/2022) CREATININE-OUTSIDE LAB 1.15(A) 0.55 - 1.02 MG/DL OUTSIDE LAB (SEE SCANNED REPORT) EGFR-OUTSIDE LAB 48(A) >=60 ML/MIN/1.73M2 OUTSIDE LAB (SEE SCANNED REPORT) POTASSIUM-OUTSIDE LAB 4.0 3.5 - 5.1 MMOL/L OUTSIDE LAB (SEE SCANNED REPORT) GLUCOSE-OUTSIDE LAB 125(A) 70 - 110 MG/DL OUTSIDE LAB (SEE SCANNED REPORT) HOURS FASTING OUTSIDE LAB (S EE SCANNED REPORT) TRIGLYCERIDES-OUTSIDE LAB OUTSIDE LAB (SEE SCANNED REPORT) CHOLESTEROL-OUTSIDE LAB OUTSIDE LAB (SEE SCANNED REPORT) HDL-OUTSIDE LAB OUTSIDE LAB (SEE SCANNED REPORT) CHOL/HDL RATIO-OUTSIDE LAB OUTSIDE LAB (SEE SCANNED REPORT) LDL (CALCULATED)-OUTSIDE LAB OUTSIDE LAB (SEE SCANNED REPORT) LDL (DIRECT MEASURE)-OUTSIDE LAB OUTSIDE LAB (SEE SCANNED REPORT) HEMOGLOBIN, [id number] LAB OUTSIDE LAB (SEE SCANNED REPORT) PHOSPHORUS-OUTSIDE LAB OUTSIDE LAB (SEE SCANNED REPORT) PTH-OUTSIDE LAB OUTSIDE LAB (SEE SCANNED REPORT) MICROALBUMIN RATIO-OUTSIDE LAB OUTSIDE LAB (SEE SCANNED REPORT) PROTEIN, UA-OUTSIDE LAB OUTSIDE LAB (SEE SCANNED REPORT) HEMOGLOBIN-OUTSIDE LAB OUTSIDE LAB (SEE SCANNED REPORT) CHEMISTRY COMMENT-OUTSIDE LAB Comment:SEE SCAN: CMP, LIPASE LVL, PROBNP OUTSIDE LAB (SEE SCANNED REPORT) Specimen Narrative Performing Organization Address City/State/[facility] Co de Phone Number OUTSIDE LAB (SEE SCANNED REPORT) documented in this encounter Advance Directives Documents on File Type Date Recorded 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
--- OUTSIDE RECORDS SUMMARY | 2023-06-18 02:45 | External Medical Summary | Summary of Care ---
Author Name Unknown Organization [place] [address] Care Team Providers Care Hand Iii Cutter Name Role Phone Marcela Pinto MD Primary Care Provider + Reason for Visit * Reason Onset Date Comments Home Health 06/14/2022 UPDATE Encounter Details Date Type Department Care Team Description 06/14/2022 Telephone General Internal Medicine [facility] [address] [place] [address] Marcela Pinto MD [address] [place] [address] Home Health (UPDATE ) Allergies Active Allergy Reactions Severity Noted Date Comments Valsartan 07/10/2010 Enalapril 05/21/2006 Escitalopram Oxalate Nausea/vomiting 10/11/2009 Nauseated Iodinated Diagnostic Agents Nausea/vomiting 05/2010 IV Contrast Iodine Hives 12/18/2009 IV Contrast Metoprolol Tartrate 11/18/2006 Made pulse low [place] Oil-Black Currant-Vit E 07/10/2010 Verapamil 03/21/2004 Bupropion [...] hemoglobin A1c goal of less than 7.0% ([facility]) Use as directed. USE TO TEST BLOOD [...] Oral Tablet Extended Release 24 Hour (toPROL XL)Indications:Casing Soaker akin 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 135 Tablet 3 10/04/2021 Active Spiriva Respimat 1.25 MCG/ACT Inhalation Aerosol Solution (Tiotropium [place] Monohydrate) Inhale by mouth. 0 Active Lisinopril [...] Hypoxemia 10/08/2011 10/30/2015 Genetic Sleep Disorder Research Other*[id number] 07/25/2011 05/15/2016 COPD, moderate 07/19/2011 07/28/2019 Overview: [...] mRNA, LNP-s, No Pre serve, 2-Dose Series ([employer]) 08/21/2021,12/22/2020,2020 COVID-19, LNP-s, No Preserve , Tyler-sucrose, [...] Linder LPN - 06/19/2022 8:55 AM EDT iNeves APPIAH from [facility] with an update. Seeing patient currently. Weight [...] LPN - 06/14/2022 2:21 PM EDT Nieves blanco from [facility]. Patient is home. Opened up today for [...] Team Description 06/25/2022 Office Visit Cardiology Hammad Lopez O, DO [address] [facility] [address] 06/27/2022 Office Visit Internal Medicine Marcela Pinto MD [address] [place] [address] 07/08/2022 Office Visit General Surgery Teresita Padron PA-C [address] [place] [address] 07/11/2022 Office Visit Hematology Oncology Ida Cueva CRNP [address] [facility] [place] [address] Scheduled Orders Name Type [...] Additional history exists CKD PHOS USE SMARTSET 50629 02/19/2023 05/, 03/09/2021, 03/22/2019 DIABETES-EYE EXAM 03/08/2023 03/08/2022, , 08/07/2020, Additional history exists CKD HGB USE SMARTSET 07819 06/10/202306/10, 06/10/2022, 06/09/2022, Additional history exists O2 [...] Documents on File Type Date Recorded 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
--- OUTSIDE RECORDS SUMMARY | 2023-06-18 02:45 | External Medical Summary | Summary of Care ---
Author Name Unknown Organization [place] [address] Care Team Providers Care Credit Adjuster Name Role Phone Marcela Pinto MD Primary Care Provider + Reason for Visit * Reason Comments Follow Up 6M f/u * Additional Visits (Within 10 days (routine)) - Closed Specialty Diagnoses / Procedures Referred By Contac t Referred To Contact Cardiovascular Medicine / Cardiology Diagnoses Chronic systolic (congestive) heart failure (HCC) Paroxysmal atrial fibrillation (HCC) Procedures [place] OFFICE/OUTPATIENT ESTABLISHED MOD MDM 30-39 MIN [facility] VISIT Marcela Pinto MD [address] [facility] [place] [address] Cardiology [facility] [address] [facility] [address] Referral ID Status Reason Start Date Expiration Date V isits Requested Visits Authorized [id number] Closed Specialty Services Required 06/25/2022 12/23/2022 2 2 Encounter Details Date Type Department Care Team Description 06/25/2022 Office Visit Cardiology, [facility] [address] [place] [address] Hammad Lopez DO [address] [facility] [place] [address] Paroxysmal atrial fibrillation (HCC)*; NICM (nonischemic cardiomyopathy) (HCC); Chronic systolic heart failure (HCC) Allergies Active Allergy Reactions Severity Noted Date Comments Valsartan 07/10/2010 Enalapril 05/21/2006 Escitalopram Oxalate Nausea/vomiting 10/11/2009 Nauseated Iodinated Diagnostic Agents Nausea/vomiting 05/2010 IV Contrast Iodine Hives 12/18/2009 IV Contrast Metoprolol Tartrate 11/18/2006 Made pulse low [place] Oil-Black Currant-Vit E 07/10/2010 Verapamil 03/21/2004 Bupropion Hcl 10/30/2009 Makes pt sick in the stomach documented as of this encounter (statuses as of 06/25/2022) Medications Medication Sig Dispensed Refills Start Date [...] Oral Tablet Extended Release 24 Hour (toPROL XL)Indications:Employment Interviewer akin 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),NICM (nonischemic cardiomyopathy) ([facility]),Presence of Watchman left atrial appendage closure device Take 1 tab in the morning and 1/2 tab in the evening. 135 Tablet 3 1 Active Spiriva Respimat 1.25 MCG/ACT Inhalation Aerosol Solution (Tiotropium [place] Monohydrate) Inhale by mouth 2 Puffs daily [...] WITH BREAKFAST 90 Tablet 1 2 Active EdithDavidalbert Sanches In Vitro Strip (Glucose Blood) Checks [...] before bedtime. 60 Tablet 6 2 Active predniSONE 50 MG Oral Tablet (Deltasone)Indicati ons:Lower abdominal pain,Diverticulitis of colon Take 1 tab 13 hrs before scan, take 1 tab 7 hrs before scan, take 1 tab 1 hr before scan with Benadryl 3 Tablet 0 2 06/25/20 22 Discontinu ed(Patient preference /discontin uation) Furosemide 40 [...] EVENING 135 Tablet 3 2 06/25/20 22 Discontinu ed(Medicat ion/Dose Changed) documented as of this encounter (statuses as of 06/25/2022) Active Problems Problem Noted Date Gastroparesis 05/13/2022 [...] as of this encounter (statuses as of 06/25/2022) Resolved Problems Problem Noted Date Resolved Date [...] Hypoxemia 10/08/2011 10/30/2015 Genetic Sleep Disorder Research Other*[id number] 07/25/2011 05/15/2016 COPD, moderate 07/19/2011 07/28/2019 Overview: [...] as of this encounter (statuses as of 06/25/2022) Immunizations Name Administration Dates Next Due COVID-19 mRNA, LNP-s, No Pre serve, 2-Dose Series ([employer]) 08/21/2021,12/22/2020,2020 COVID-19, LNP-s, No Preserve , Tyler-sucrose, [...] Sign Reading Time Taken Comments Blood Pressure 110/66 06/25/2022 3:15 PM EDT Pulse 88 06/25/2022 3:15 PM EDT Temperature 36.3 C (97.3 F) 06/25/2022 3:15 PM ED T Respiratory Rate 20 06/25/2022 3:15 PM EDT Oxygen Saturation 95% 06/25/2022 3:15 PM EDT 2.5L NC Inhaled Oxygen Concentration - - Weight 103.8 kg (228 lb 12.8 oz) 06/25/2022 3:15 PM EDT Height - - Body Mass Index 38.07 06/06/2022 4:26 PM EDT documented in this [...] this encounter Progress Notes * Hammad Lopez, - 06/25/2022 3:22 PM EDT SUBJECTIVE: Patient returns today for follow-up of chronic heart failure with reduced ejection fraction, nonischemic cardiomyopathy, and permanent atrial fibrillation status post watchman device implantation. Recently hospitalized with diverticulitis. Managed conservatively. Today, notes bilateral pedal and ankle edema. Edema worsening over the past few weeks. Treated withhigh-dose furosemide in the past, 60 mg in the morning, 40 in the evening. Over the past 6 months she has been treated with 40 mg in the morning, 20 mg in the evening. Tolerating other cardiovascularmedications listed below. Denies orthopnea. Oxygen-dependent and wheelchair-bound. Scheduled for follow-up with surgery next week for follow-up of recent diverticulitis. ROS: All others negative other than those noted in the HPI. 3 Day Zio monitor report 11/12/2021: Atrial Fibrillation occurred continuously (100% burden), ranging from 44- 153 bpm (avg of 78 bpm). Isolated VEs were frequent (17.5%, 25250), VE Couplets were rare (<1.0%, 1152), and VE Triplets were rare (<1.0%, 148). Ventricular Bigeminy and Trigeminy were present. The patient is submitted 1 diary entry /event marker which correlated with atrial fibrillation withventricular trigeminy 2D echocardiogram report September 03, 2021: The [...] is 44mm Hg. 2D echo report summary [facility] 02/26/21: LV systolic function is [...] than 7.5% ([facility]) E11.9 Elevated plasma metanephrines R79.89 Irritable bowel syndrome with constipation K58.1 HECTOR (generalized anxiety disorder) F41.1 COPD, group B, 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 ([facility]) J44.9 Morbid obesity with BMI of 40.0-44.9, adult ([facility]) E66.01, Z68.41 Gastro-esophageal reflux disease without esophagitis K21.9 Paroxysmal atrial fibrillation ([facility]) I48.0 Chronic systolic heart failure ([facility]) I50.22 Pulmonary HTN ([facility]) I27.20 Chronic hypoxemic respiratory failure ([facility]) J96.11 Chronic kidney disease, stage 3a ([facility]) N18.31 Subclinical hyperthyroidism E05.90 History of ESBL E. coli infection Z86.19 Type 2 diabetes mellitus with stage 3a chronic kidney disease, without long- term current use ofinsulin ([facility]) E11.22, N18.31 Gastroparesis K31.84 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 Tobacco Use Smoking status: Never [...] IV Contrast Metoprolol Tartrate Made pulse low [place] Oil-Black Currant-Vit E Verapamil Wellbutrin [Bupropion Hcl] [...] Respimat 1.25 MCG/ACT Inhalation Aerosol Solution (Tiotropium [place] Monohydrate) Inhale by mouth 2 Puffs daily [...] BY MOUTH EVERY DAY 90 Tablet 3 HYDROcodone-Acetaminophen 5-325 MG Oral Tablet Take by mouth 1 Tablet every 6 hours as needed for Pain, Mild. 120 Tablet 0 Sertraline HCl 25 MG Oral Tablet (Zoloft) TAKE 1 TABLET BY MOUTH EVERY DAY IN THE MORNING 90 Tablet 1 Omeprazole 20 MG Oral Capsule Delayed Release (PriLOSEC) TAKE 1 CAPSULE BY MOUTH TWICE A DAY 180 Capsule 3 Furosemide 40 MG Oral Tablet (Lasix) TAKE 1 TABLET BY MOUTH IN THE MORNING, AND 1/2 TABLET IN THE EVENING (Patient taking differently: Take by mouth 40 mg 2 times a day . ) 135 Tablet 3 Ondansetron 8 MG Oral Tablet Disintegrating (Zofran) DISSOLVE 1 TABLET ON TONGUE EVERY 8 HOURS NEEDED FOR NAUSEA 60 Tablet 5 Lancets MISC Use as directed. USE TO TEST BLOOD SUGAR 3 TIMES A DAY FOR DIAGNOSIS CODE OF E11.9300 Each 1 Care24PageBooks N Voice System Device Use as directed. Tests three times daily/E11.9 CareSens N Glucose Test In Vitro Strip (Glucose Blood) Test as directed. Tests three times daily OneTouch Verio In Vitro Strip (Glucose Blood) Checks blood sugar 3 times a day. E11.9 DX 100 Strip 5 Promethazine HCl 25 MG Oral Tablet (Phenergan) [...] 6.6 - 11.1 fL OBJECTIVE/PHYSICAL EXAMINATION: BP 110/66 (BP Site: Left Arm, BP Position: Sitting, BP Cuff Size: Large) | Pulse 88 | Temp 36.3 C(97.3 F) (Temporal Artery) | Resp 20 | Wt 103.8 kg (228 lb 12.8 oz) | SpO2 95% Comment: 2.5L NC |BMI 38.07 kg/m | BSA 2.18 m General: NAD, AAO x3, well nourished. Obese. HEENT: Normocephalic. Atraumatic. Conjunctiva pink, noscleral icterus. No carotid bruits, the carotid upstrokes are brisk. No JVD. No HJR Heart: Irregular rhythm, normal S-1 and S-2. Soft, 1/6 systolic ejection murmur heard best at the right 2nd intercostal space. PMI is not displaced. No RV heave. Lungs: Clear bilateral without rales , rhonchi, or wheeze. Abdomen: Normal bowel sounds. Soft. Nontender. No masses or organomegaly. No abdominal bruits.Extremities: 1+ bilateral pedal and ankle edema No clubbing, or cyanosis. Pulses: radial=2/4, Dorsalis pedis =2/4, posterior tibial=2/4. Neuro: No focal deficits. ASSESSMENT: 1. Chronic heart failure with reduced ejection fraction -stable class 3 functional capacity -lower extremity edema somewhat more significant after recent prolonged hospitalization 2. Nonischemic cardiomyopathy -cardiac catheterization performed November 2020 in [employer] demonstrating mild nonobstructive coronary disease. 3. Chronic rate controlled atrial fibrillation s/p watchman device implant 4. Moderate mitral regurgitation 5. Dyslipidemia - patient reports myalgia associated with 80 mg Lipitor 6. Severe oxygen-dependent COPD with chronic hypercapnia 7. CKD stage 3a 8. Hyperthyroid on tapazole - dose recently reduced PLAN: Titrate furosemide to 40 mg twice daily. Repeat basic metabolic panel in 1 week. Monitor daily weight. Restrict sodium intake to less than 2 g daily. Diuretic protocol reviewed: Instructed to take anadditional 40 mg of Lasix in the afternoon if weight increases more than 2 lb in a 48 hour period, or 5 lb in 1 week. Continue other cardiovascular medications including atorvastatin, spironolactone, aspirin, metoprolol succinate, and lisinopril. All questions answered to patient's satisfaction. Follow Up: Return in about 6 months (around 12/23/2022). I spent a total of 40-54 minutes (exact time 41 mins) on the date of service in preparation, delivery, and documentation of the care provided to Nina Harrington excluding any time spent in the performance of separately billed services. Hammad Lopez DO, [facility] Associate Cardiology - [facility] documented in this encounter Nursing Notes * Mary Oglesby CMA - 06/25/2022 3:13 PM EDT Examination Room: 13 Name: Nina Harrington Date of : (1940). Reason for Visit: 6M f/u Interim Hospitalization(s): [facility] transferred to [facility] 06/06-06/10 diverticulitis with abscess Problems/Concerns: edema in feet and ankles Chest Pain/SOB: SOB all of the time, uses O2 [facility] Discussed: Not applicable [facility] is a way you can talk to your provider online through e-mail. Would you like to sign up? I can activate it for you? DECLINES Patient was instructed to not get up [...] Date Type Specialty Care Team Description 06/27/2022 Office Visit Internal Medicine Marcela Pinto MD [address] [place] [address] 07/08/2022 Office Visit General Surgery Teresita Padron PA-C [address] [place] [address] 07/11/2022 Office Visit Hematology Oncology Ida Cueva CRNP [address] [place] [address] 01/03/2023 Office Visit Cardiology Hammad Lopez, DO [address] [place] [address] Scheduled Orders Name Type Priority Associated Diagnoses Orde r Schedule EKG COMPLETE (TRACING AND INTERP) EKG Routine Paroxysmal atrial fibrillation (HCC) Ordered: 06/25/2022 BASIC METABOLIC PANEL Lab Routine NICM (nonischemic cardiomyopathy) (HCC) Chronic systolic heart failure (HCC) Expected: 07/02/2022, Expires: 06/25/2023 Health Maintenance Due Date Last Done Comments [...] Additional history exists CKD PHOS USE SMARTSET 96362 02/19/202302/10, 03/09/2021, 03/22/2019 DIABETES-EYE EXAM 03/08/2023 03/08/2022, , 08/07/2020, Additional history exists O2 ASSESSMENT COMPLETED IN PAST YEAR FOR COPD 06/10/2023 06/10/2022 CKD HGB USE SMARTSET 43553 06/21/202306/21, 06/10/2022, 06/10/2022, Additional history exists DXA [...] as of this encounter Visit Diagnoses Diagnosis Paroxysmal atrial fibrillation (HCC)- Primary Atrial fibrillation NICM (nonischemic cardiomyopathy) (HCC) Other primary cardiomyopathies Chronic systolic heart failure (HCC) Chronic systolic heart failure documented in this encounter Advance Directives Documents on File Type Date Recorded Patient Suppression Crew Leader Expl anation Advanced 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 occurred with: Not Discussed Care Teams Credit Adjuster Relationship Specialty Start Date End Date Marcela Pinto MD [address] [facility] [place] [address] PCP - General Internal Medicine 08/04/14 documented as of this encounter"
--- OUTSIDE RECORDS SUMMARY | 2023-06-18 02:45 | External Medical Summary | Summary of Care ---
Author Name Unknown Organization [place] [address] Care Team Providers Care Freelance Director Name Role Phone Marcela Pinto MD Primary Care Provider + Encounter Details Date Type Department Care Team Description 06/13/2022 Scan Encounter General Internal Medicine [facility] [address] [facility] [place], [place] [id number] Marcela Pinto MD [address] [place] [address] <No scans attached> Allergies Active Allergy Reactions Severity Noted Date Comments Valsartan 07/10/2010 Enalapril 05/21/2006 Escitalopram Oxalate Nausea/vomiting 10/11/2009 Nauseated Iodinated Diagnostic Agents Nausea/vomiting 05/2010 IV Contrast Iodine Hives 12/18/2009 IV Contrast Metoprolol Tartrate 11/18/2006 Made pulse low [place] Oil-Black Currant-Vit E 07/10/2010 Verapamil 03/21/2004 Bupropion Hcl 10/30/2009 Makes pt sick in the stomach documented as of this encounter (statuses as of 06/18/2022) Medications Medication Sig Dispensed Refills Start Date [...] moderate ([facility]) USE ONE NEBULIZER TREATMENT TWICE A DAY DIRECTED FOR WORSENING ASTHMA. J45.909, J44.9 225 mL 1 06/29/2019 Active Albuterol Sulfate (VENTOLIN HFA) 108 (90 Base) MCG/ACT AERS Inhale 2 Puffs by mouth 2 times a day. 0 12/27/2019 Active Lancets MISCIndications:Type 2 diabetes mellitus with hemoglobin A1c goal of less than 7.0% ([facility]) Use as directed. USE TO TEST BLOOD [...] fraction and diastolic dysfunction ([facility]),NICM (nonischemic cardiomyopathy) ([facility]),Presence of Watchman left atrial appendage closure device Take 1 tab in the morning and 1/2 tab in the evening. 135 Tablet 3 10/04/2021 Active Spiriva Respimat 1.25 MCG/ACT Inhalation Aerosol Solution (Tiotropium [place] Monohydrate) Inhale by mouth. 0 Active Lisinopril [...] Pain, Mild. 120 Tablet 0 05/20/2022 Active Ciprofloxacin HCl 500 MG Oral Tablet (Cipro) Take by mouth 1 Tablet in the morning AND 1 Tablet before bedtime. Do all this for 12 days. 24 Tablet 0 06/07/2022 2 Active metroNIDAZOLE 500 MG Oral Tablet Take by mouth 1 Tablet in the morning AND 1 Tablet at noon AND 1 Tablet before bedtime. Do all this for 12 days. 36 Tablet 0 06/07/2022 2 Active Sertraline HCl 25 MG Oral Tablet (Zoloft)Indications: Major depressive disorder with single episode, in partial remission (HCC),HECTOR (generalized anxiety disorder) TAKE 1 TABLET BY MOUTH EVERY DAY IN THE MORNING 90 Tablet 1 06/12/2022 Active documented as of this encounter (statuses as of 06/18/2022) Active Problems Problem Noted Date Gastroparesis 05/13/2022 [...] as of this encounter (statuses as of 06/18/2022) Resolved Problems Problem Noted Date Resolved Date [...] Hypoxemia 10/08/2011 10/30/2015 Genetic Sleep Disorder Research Other*[id number] 07/25/2011 05/15/2016 COPD, moderate 07/19/2011 07/28/2019 Overview: [...] as of this encounter (statuses as of 06/18/2022) Immunizations Name Administration Dates Next Due COVID-19 mRNA, LNP-s, No Pre serve, 2-Dose Series ([employer]) 08/21/2021,12/22/2020,2020 COVID-19, LNP-s, No Preserve , Tyler-sucrose, [...] Office Visit Cardiology Hammad Lopez, DO [address] [facility] [place] [address] 07/08/2022 Office Visit General Surgery Teresita Padron PA-C [address] [facility] [place] [address] 07/11/2022 Office Visit Hematology Oncology Ida Cueva CRNP [address] [place] [address] Health Maintenance Due Date Last Done Comments [...] Additional history exists CKD PHOS USE SMARTSET 21649 02/19/2023 05, 03/09/2021, 03/22/2019 DIABETES-EYE EXAM 03/08/2023 03/08/2022, , 08/07/2020, Additional history exists CKD HGB USE SMARTSET 61867 06/10/202306/10, 06/10/2022, 06/09/2022, Additional history exists O2 [...] Documents on File Type Date Recorded Patient Battery Container Tester Aluminum Expl anation Advanced 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 Directives occurred with: Not Discussed Care Teams Freelance Director Relationship Specialty Start Date End Date Marcela Pinto MD [address] [facility] [place] [address] PCP - General Internal Medicine 08/04/14 documented as of this encounter
--- OUTSIDE RECORDS SUMMARY | 2023-06-18 02:45 | External Medical Summary | Summary of Care ---
Author Name Unknown Organization [place] [address] Care Team Providers Care Cyber Systems Administrator Name Role Phone Marcela Pinto MD Primary Care Provider + Reason for Visit * Reason Onset Date Comments Home Health 06/14/2022 UPDATE Encounter Details Date Type Department Care Team Description 06/14/2022 Telephone General Internal Medicine [facility] [address] [place] [address] Marcela Pinto MD [address] [place] [address] Home Health (UPDATE ) Allergies Active Allergy Reactions Severity Noted Date Comments Valsartan 07/10/2010 Enalapril 05/21/2006 Escitalopram Oxalate Nausea/vomiting 10/11/2009 Nauseated Iodinated Diagnostic Agents Nausea/vomiting 05/2010 IV Contrast Iodine Hives 12/18/2009 IV Contrast Metoprolol Tartrate 11/18/2006 Made pulse low [place] Oil-Black Currant-Vit E 07/10/2010 Verapamil 03/21/2004 Bupropion [...] hemoglobin A1c goal of less than 7.0% ([facility]) Use as directed. 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 135 Tablet 3 10/04/2021 Active Spiriva Respimat 1.25 MCG/ACT Inhalation Aerosol Solution (Tiotropium [place] Monohydrate) Inhale by mouth. 0 Active Lisinopril [...] Hypoxemia 10/08/2011 10/30/2015 Genetic Sleep Disorder Research Other*[id number] 07/25/2011 05/15/2016 COPD, moderate 07/19/2011 07/28/2019 Overview: [...] mRNA, LNP-s, No Pre serve, 2-Dose Series ([employer]) 08/21/2021,12/22/2020,2020 COVID-19, LNP-s, No Preserve , Tyler-sucrose, [...] but to call back with further questions. * Telephone Encounter - Marcela Pinto MD - 06/20/2022 7:00 AM EDT Noted. Lets get labs as just signed. Please inform so they can draw on 06/21. * Telephone Encounter - Angelina Linder LPN - 06/19/2022 8:55 AM EDT Nieves APPIAH from [facility] with an update. Seeing patient currently. Weight [...] 06/14/2022 2:21 PM EDT Nieves calling from [facility]. Patient is home. Opened up today for [...] Cardiology Hammad Lopez, DO [address] [place] [address] 06/27/2022 Office Visit Internal Medicine Marcela Pinto MD [address] [place] [address] 07/08/2022 Office Visit General Surgery Teresita Padron PA-C [address] [place] [address] 07/11/2022 Office Visit Hematology Oncology Ida Cueva CRNP [address] [facility] [place] [address] Scheduled Orders Name Type [...] Additional history exists CKD PHOS USE SMARTSET 89187 02/19/2023 05/, 03/09/2021, 03/22/2019 DIABETES-EYE EXAM 03/08/2023 03/08/2022, , 08/07/2020, Additional history exists CKD HGB USE SMARTSET 31996 06/10/202306/10, 06/10/2022, 06/09/2022, Additional history exists O2 ASSESSMENT COMPLETED IN PAST YEAR FOR COPD 06/10/2023 06/10/2022 DXA Scan 08/08/2025 08/08/2020, 07, 06/19/2010, Additional history exists DTaP,Tdap,and Td Vaccines [...] Documents on File Type Date Recorded Patient Detail Supervisor Expl anation Advanced 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 Directives occurred with: Not Discussed Care Teams Cyber Systems Administrator Relationship Specialty Start Date End Date Marcela Pinto MD [address] [facility] [place] [address] PCP - General Internal Medicine 08/04/14 documented as of this encounter
--- OUTSIDE RECORDS SUMMARY | 2023-06-18 02:45 | External Medical Summary | Summary of Care ---
Author Name Unknown Organization [place] [address] Care Team Providers Care Supervisor Endless Track Vehicle Name Role Phone Marcela Pinto MD Primary Care Provider + Encounter Details Date Type Department Care Team Description 06/24/2022 Orders Only General Internal Medicine [facility] [address] [place] [address] Marcela Pinto MD [address] [place] [address] Allergies Active Allergy Reactions Severity Noted Date Comments Valsartan 07/10/2010 Enalapril 05/21/2006 Escitalopram Oxalate Nausea/vomiting 10/11/2009 Nauseated Iodinated Diagnostic Agents Nausea/vomiting 05/2010 IV Contrast Iodine Hives 12/18/2009 IV Contrast Metoprolol Tartrate 11/18/2006 Made pulse low [place] Oil-Black Currant-Vit E 07/10/2010 Verapamil 03/21/2004 Bupropion [...] Asthma with severity to be determined,COPD, moderate ([facility]) USE ONE NEBULIZER TREATMENT TWICE A DAY DIRECTED FOR WORSENING ASTHMA. J45.909, J44.9 225 mL 1 06/29/2019 Active Albuterol Sulfate (VENTOLIN HFA) 108 (90 Base) MCG/ACT AERS Inhale 2 Puffs by mouth 2 times a day. 0 12/27/2019 Active Lancets MISCIndications:Type 2 diabetes mellitus with hemoglobin A1c goal of less than 7.0% ([facility]) Use as directed. USE TO [...] with reduced ejection fraction and diastolic dysfunction ([facility]),NICM (nonischemic cardiomyopathy) ([facility]),Presence of Watchman left atrial appendage closure device Take 1 tab in the morning and 1/2 tab in the evening. 135 Tablet 3 10/04/2021 Active Spiriva Respimat 1.25 MCG/ACT Inhalation Aerosol Solution (Tiotropium [place] Monohydrate) Inhale by mouth. 0 Active Lisinopril [...] Hypoxemia 10/08/2011 10/30/2015 Genetic Sleep Disorder Research Other*[id number] 07/25/2011 05/15/2016 COPD, moderate 07/19/2011 07/28/2019 Overview: [...] mRNA, LNP-s, No Pre serve, 2-Dose Series ([employer]) 08/21/2021,12/22/2020,2020 COVID-19, LNP-s, No Preserve , Tyler-sucrose, [...] Office Visit Cardiology Hammad Lopez, DO [address] [facility] [place] [address] 06/27/2022 Office Visit Internal Medicine Marcela Pinto MD [address] [place] [address] 07/08/2022 Office Visit General Surgery Teresita Pardon PA-C [address] [place] [address] 07/11/2022 Office Visit Hematology Oncology Ida Cueva CRNP [address] [place] [address] Health Maintenance Due Date Last [...] Additional history exists CKD PHOS USE SMARTSET 69364 02/19/2023 05, 03/09/2021, 03/22/2019 DIABETES-EYE EXAM 03/08/2023 03/08/2022, , 08/07/2020, Additional history exists CKD HGB USE SMARTSET 27967 06/10/202306/21, 06/10/2022, 06/10/2022, Additional history exists O2 ASSESSMENT [...] Documents on File Type Date Recorded Patient Electron Beam Welder Expl anation Advanced 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 Directives occurred with: Not Discussed Care Teams Supervisor Endless Track Vehicle Relationship Specialty Start Date End Date Marcela Pinto MD [address] [place] [address] PCP - General Internal Medicine 08/04/14 documented as of this encounter
--- OUTSIDE RECORDS SUMMARY | 2023-06-18 02:45 | External Medical Summary | Summary of Care ---
Author Name Unknown Organization [place] [address] Care Team Providers Care Pie Baker Name Role Phone Marcela Pinto MD Primary Care Provider + Encounter Details Date Type Department Care Team Description 05/31/2022 Scan Encounter General Internal Medicine [facility] [address] [facility] [place], [place] [id number] Marcela Pinto MD [address] [place] [address] <No scans attached> Allergies Active Allergy Reactions Severity Noted Date Comments Valsartan 07/10/2010 Enalapril 05/21/2006 Escitalopram Oxalate Nausea/vomiting 10/11/2009 Nauseated Iodinated Diagnostic Agents Nausea/vomiting 05/2010 IV Contrast Iodine Hives 12/18/2009 IV Contrast Metoprolol Tartrate 11/18/2006 Made pulse low [place] Oil-Black Currant-Vit E 07/10/2010 Verapamil 03/21/2004 Bupropion [...] Respimat 1.25 MCG/ACT Inhalation Aerosol Solution (Tiotropium [place] Monohydrate) Inhale by mouth. 0 Active Lisinopril [...] Pain, Mild. 120 Tablet 0 05/20/2022 Active documented as of this encounter (statuses [...] Hypoxemia 10/08/2011 10/30/2015 Genetic Sleep Disorder Research Other*[id number] 07/25/2011 05/15/2016 COPD, moderate 07/19/2011 07/28/2019 Overview: [...] on file documented as of this encounter Plan of Treatment Upcoming Encounters Date Type Specialty Care Team Description 06/25/2022 Office Visit Cardiology Hammad Lopez, DO [address] [facility] [place] [address] 06/27/2022 Office Visit Internal Medicine Marcela Pinto MD [address] [place], [place] [phone] 07/08/2022 Office Visit General Surgery Teresita Padron PA-C [address] [place] [address] 07/11/2022 Office Visit Hematology Oncology Ida Cueva CRNP [address] [place] [address] Health Maintenance Due Date Last [...] Additional history exists CKD PHOS USE SMARTSET 24277 02/19/202302/10, 03/09/2021, 03/22/2019 DIABETES-EYE EXAM 03/08/2023 03/08/2022, , 08/07/2020, Additional history exists CKD HGB USE SMARTSET 74784 06/10/202306/10, 06/10/2022, 06/09/2022, Additional history exists O2 [...] Documents on File Type Date Recorded Patient Core Manager Expl 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 Directives occurred with: Not Discussed Care Teams Pie Baker Relationship Specialty Start Date End Date Marcela Pinto MD [address] [place] [address] PCP - General Internal Medicine 08/04/14 documented as of this encounter
--- OUTSIDE RECORDS SUMMARY | 2023-06-18 02:46 | External Medical Summary | Summary of Care ---
Author Name Unknown Organization [place] [address] Care Team Providers Care Fashion Photographer Name Role Phone Marcela Pinto MD Primary Care Provider + Reason for Visit * Reason Onset Date Comments Appointment 06/12/2022 Encounter Details Date Type Department Care Team Description 06/12/2022 Telephone General Surgery, [place] [address] [place] [address] Services, [facility] [address] [place] [address] Appointment Allergies Active Allergy Reactions Severity Noted Date Comments Valsartan 07/10/2010 Enalapril 05/21/2006 Escitalopram Oxalate Nausea/vomiting 10/11/2009 Nauseated Iodinated Diagnostic Agents Nausea/vomiting 05/2010 IV Contrast Iodine Hives 12/18/2009 IV Contrast Metoprolol Tartrate 11/18/2006 Made pulse low [place] Oil-Black Currant-Vit E 07/10/2010 Verapamil 03/21/2004 Bupropion Hcl 10/30/2009 Makes pt sick in the stomach documented as of this encounter (statuses as of 06/12/2022) Medications Medication Sig Dispensed Refills Start Date [...] be determined,COPD, moderate ([facility]) USE ONE NEBULIZER TREATMENT TWICE A DAY DIRECTED FOR WORSENING ASTHMA. J45.909, J44.9 225 mL 1 06/29/2019 Active Albuterol Sulfate (VENTOLIN HFA) 108 (90 Base) MCG/ACT AERS Inhale 2 Puffs by mouth 2 times a day. 0 12/27/2019 Active Lancets MISCIndications:Type 2 diabetes mellitus with hemoglobin A1c goal of less than 7.0% ([facility]) Use as directed. USE TO TEST BLOOD SUGAR 3 TIMES A DAY FOR DIAGNOSIS CODE OF E11.9 300 Each 1 01/05/2020 Active ondansetron ODT (ZOFRAN) [address] 8 mg on tongue every 8 hours as needed for Nausea. dissolve on tongue. 0 Active CareSens N Voice System Device Use as directed. Tests three times daily/E11.9 0 Active CareSens N Glucose Test In Vitro Strip (Glucose Blood) Test as directed. Tests three times daily 0 Active Aspirin 81 MG Oral Tablet Delayed Release Take 81 mg by mouth daily. 0 02/05/2021 Active Omeprazole 20 MG Oral Capsule Delayed Release (PriLOSEC)Indication s:Ischemic colitis (HCC) TAKE 1 CAPSULE BY MOUTH TWICE A DAY 180 Capsule 3 09/20/2021 Active Klor-Con M20 20 MEQ Oral Tablet Extended Release (Potassium Chloride Annalisa ER)Indications:HTN, goal below 140/90 TAKE 1 TABLET BY MOUTH EVERY DAY 90 Tablet 3 09/28/2021 Active Metoprolol Succinate ER 25 MG Oral Tablet Extended Release 24 Hour (toPROL XL)Indications:Chron ic 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),NICM (nonischemic cardiomyopathy) ([facility]),Presence of Watchman left atrial appendage closure device Take 1 tab in the morning and 1/2 tab in the evening. 135 Tablet 3 10/04/2021 Active Spiriva Respimat 1.25 MCG/ACT Inhalation Aerosol Solution (Tiotropium [place] Monohydrate) Inhale by mouth. 0 Active Lisinopril [...] days. 36 Tablet 0 06/07/2022 2 Active Furosemide 40 MG Oral Tablet (Lasix)Indications:C hronic systolic heart failure (HCC),Paroxysmal atrial fibrillation (HCC),Chronic 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),NICM (nonischemic cardiomyopathy) (HCC),Chronic atrial fibrillation (HCC),Hospital discharge follow-up,Presence of Watchman left atrial appendage closure device TAKE 1 AND 1/2 TABLETS BY MOUTH 2 TIMES A DAY 270 Tablet 3 06/11/2022 Active Sertraline HCl 25 MG Oral Tablet (Zoloft)Indications: Major depressive disorder with single episode, in partial remission (HCC),HECTOR (generalized anxiety disorder) TAKE 1 TABLET BY MOUTH EVERY DAY IN THE MORNING 90 Tablet 1 06/12/2022 Active documented as of this encounter (statuses as of 06/12/2022) Active Problems Problem Noted Date Gastroparesis 05/13/2022 [...] as of this encounter (statuses as of 06/12/2022) Resolved Problems Problem Noted Date Resolved Date Type 2 diabetes mellitus wit h stage 3a chronic kidney disease 05/21/2021 11/19/2021 Overview: Per CKD protocol Asthma in remission 01/09/2021 03/05/2021 Asthma, mild persistent 01/09/2021 03/05/20 21 Asthma, moderate persistent 01/09/202102/11 01/2021 Asthma, severe persistent 01/09/20212020 Intermittent asthma [...] Hypoxemia 10/08/2011 10/30/2015 Genetic Sleep Disorder Research Other*[id number] 07/25/2011 05/15/2016 COPD, moderate 07/19/2011 07/28/2019 Overview: [...] as of this encounter (statuses as of 06/12/2022) Immunizations Name Administration Dates Next Due COVID-19 mRNA, LNP-s, No Pre serve, 2-Dose Series ([employer]) 08/21/2021,12/22/2020,2020 COVID-19, LNP-s, No Preserve , Tyler-sucrose, [...] Miscellaneous Notes * Telephone Encounter - JORDAN Elizalde - 06/12/2022 3:19 PM EDT Pt has hd 06/19/22 with Teresita Padron. Cannot make appt. First available more than two weeks out. Pt said that she was told in hospital that she could have follow up in [place] Please advise if that's possible, and with which provider. Thank you! JORDAN Elizalde documented in this encounter Plan of Treatment Upcoming Encounters Date Type Specialty Care Team Description 06/19/2022 Office Visit General Surgery Teresita Padron PA-C [address] [facility] [place] [address] 06/25/2022 Office Visit Cardiology Hammad Lopez, DO [address] [facility] [place] [address] 07/11/2022 Office Visit Hematology Oncology Ida Cueva CRNP [address] [facility] [place] [address] Health Maintenance Due Date Last Done [...] Additional history exists CKD PHOS USE SMARTSET 50939 02/19/202302/10, 03/09/2021, 03/22/2019 DIABETES-EYE EXAM 03/08/2023 03/08/2022, , 08/07/2020, Additional history exists CKD HGB USE SMARTSET 74332 06/10/202306/10, 06/10/2022, 06/09/2022, Additional history exists O2 [...] Documents on File Type Date Recorded Patient Client Representative Expl 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 Directives occurred with: Not Discussed Care Teams Fashion Photographer Relationship Specialty Start Date End Date Marcela Pinto MD [address] [place] [address] PCP - General Internal Medicine 08/04/14 documented as of this encounter
--- OUTSIDE RECORDS SUMMARY | 2023-06-18 02:46 | External Medical Summary | Summary of Care ---
Author Name Unknown Organization [place] [address] Care Team Providers Care Wall Worker Name Role Phone Marcela Pinto MD Primary Care Provider + Reason for Visit * Reason Onset Date Comments Other 06/10/2022 Encounter Details Date Type Department Care Team Description 06/10/2022 Telephone General Internal Medicine [facility] [address] [place] [phone] Marcela Pinto MD [address] [place] [address] Other Allergies Active Allergy Reactions Severity Noted Date Comments Valsartan 07/10/2010 Enalapril 05/21/2006 Escitalopram Oxalate Nausea/vomiting 10/11/2009 Nauseated Iodinated Diagnostic Agents Nausea/vomiting 05/2010 IV Contrast Iodine Hives 12/18/2009 IV Contrast Metoprolol Tartrate 11/18/2006 Made pulse low [place] Oil-Black Currant-Vit E 07/10/2010 Verapamil 03/21/2004 Bupropion [...] be determined,COPD, moderate ([facility]) USE ONE NEBULIZER TREATMENT TWICE A DAY DIRECTED FOR WORSENING ASTHMA. J45.909, J44.9 225 mL 1 06/29/2019 Active Albuterol Sulfate (VENTOLIN HFA) 108 (90 Base) MCG/ACT AERS Inhale 2 Puffs by mouth 2 times a day. 0 12/27/2019 Active Lancets MISCIndications:Type 2 diabetes mellitus with hemoglobin A1c goal of less than 7.0% ([facility]) Use as directed. USE [...] reduced ejection fraction and diastolic dysfunction ([facility]),NICM (nonischemic cardiomyopathy) ([facility]),Presence of Watchman left atrial appendage closure device Take 1 tab in the morning and 1/2 tab in the evening. 135 Tablet 3 10/04/2021 Active Spiriva Respimat 1.25 MCG/ACT Inhalation Aerosol Solution (Tiotropium [place] Monohydrate) Inhale by mouth. 0 Active Lisinopril 2.5 MG Oral Tablet (Prinivil)Indication s:Paroxysmal atrial fibrillation ([facility]),Chronic systolic heart failure ([facility]) Take by mouth 1 Tablet [...] WITH BREAKFAST 90 Tablet 1 02/07/2022 Active Sertraline HCl 25 MG Oral Tablet (Zoloft)Indications: Major depressive disorder with single episode, in partial remission (HCC),HECTOR (generalized anxiety disorder) Take by mouth 1 Tablet in the morning. 30 Tablet 5 02/19/2022 Active OneTouch Verio In Vitro Strip (Glucose [...] days. 36 Tablet 0 06/07/2022 2 Active documented as of this encounter [...] Hypoxemia 10/08/2011 10/30/2015 Genetic Sleep Disorder Research Other*[id number] 07/25/2011 05/15/2016 COPD, moderate 07/19/2011 07/28/2019 Overview: [...] encounter Miscellaneous Notes * Telephone Encounter - Mohinder Landry RN - 06/12/2022 7:56 AM EDT Called and spoke with Rosa Elena from [facility] and informed her of Dr. Pinto'sprevious message. She verbalized understanding of all information. Rosa Elena said she was just calling to let Dr. Pinto know they would going out to see the patient andalso to confirm the patient's address. Nothing else further needed. FYI. * Telephone Encounter - Marcela Pinto MD - 06/10/2022 4:47 PM EDT Not sure what is there question. Usually MICROSOFT APPLICATION DEVELOPER sends us the update on pt's condition and we follow through. They can update and let us know if need anything further. * Telephone Encounter - Pascale Burns LPN - 06/10/2022 3:26 PM EDT Please advise * Telephone Encounter - JORDAN Carnes - 06/10/2022 3:10 PM EDT Rosa Elena calling stating that she received the referral for the pt. Wanting to know if PCP will follow pt through home health. Please advise documented in this encounter Plan of Treatment Upcoming Encounters Date Type Specialty Care Team Description 06/19/2022 Office Visit General Surgery Teresita Padron, PA-C [address] [place], [place] [phone] 06/25/2022 Office Visit Cardiology Hammad Lopez, DO [address] [facility] [place] [address] 07/11/2022 Office Visit Hematology Oncology Ida Cueva CRNP [address] [facility] [place] [address] Health Maintenance Due [...] Additional history exists CKD PHOS USE SMARTSET 18143 02/19/202302/10, 03/09/2021, 03/22/2019 DIABETES-EYE EXAM 03/08/2023 03/08/2022, , 08/07/2020, Additional history exists CKD HGB USE SMARTSET 55611 06/10/202306/10, 06/10/2022, 06/09/2022, Additional history exists O2 [...] Documents on File Type Date Recorded 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
--- OUTSIDE RECORDS SUMMARY | 2023-06-18 02:46 | External Medical Summary | Summary of Care ---
Author Name Unknown Organization [place] [address] Care Team Providers Care Rn Telephone Triage Name Role Phone Alex Pinto MD Primary Care Provider + Reason for Visit * Reason Comments eRx-Medication Refill Encounter Details Date Type Department Care Team Description 06/11/2022 Refill General Internal Medicine [facility] [address] [place] [address] Alex Pinto MD [address] [place] [address] Major depressive disorder with single episode, in partial remission (HCC); HECTOR (generalized anxiety disorder) Allergies Active Allergy Reactions Severity Noted Date Comments Valsartan 07/10/2010 Enalapril 05/21/2006 Escitalopram Oxalate Nausea/vomiting 10/11/2009 Nauseated Iodinated Diagnostic Agents Nausea/vomiting 05/2010 IV Contrast Iodine Hives 12/18/2009 IV Contrast Metoprolol Tartrate 11/18/2006 Made pulse low [place] Oil-Black Currant-Vit E 07/10/2010 Verapamil 03/21/2004 Bupropion [...] to be determined,COPD, moderate ([facility]) USE ONE NEBULIZER TREATMENT TWICE A DAY DIRECTED FOR WORSENING ASTHMA. J45.909, J44.9 225 mL 1 9 Active Albuterol Sulfate (VENTOLIN HFA) 108 (90 Base) MCG/ACT AERS Inhale 2 Puffs by mouth 2 times a day. 0 0 Active Lancets MISCIndications:Ty pe 2 diabetes mellitus with hemoglobin A1c goal of less than 7.0% ([facility]) Use as directed. USE TO TEST BLOOD SUGAR 3 TIMES A DAY FOR DIAGNOSIS CODE OF E11.9 300 Each 1 0 Active ondansetron ODT (ZOFRAN) 8 MG TBDP [...] mg by mouth daily. 0 1 Active Omeprazole 20 MG Oral Capsule Delayed Release (PriLOSEC)Indicati ons:Ischemic colitis (HCC) TAKE 1 CAPSULE BY MOUTH TWICE A DAY 180 Capsule 3 1 Active Klor-Con M20 20 MEQ Oral [...] Respimat 1.25 MCG/ACT Inhalation Aerosol Solution (Tiotropium [place] Monohydrate) Inhale by mouth. 0 Active Lisinopril 2.5 MG Oral Tablet (Prinivil)Indicati ons:Paroxysmal [...] 2 Active methIMAzole 10 MG Oral Tablet (Tapazole)Indicati ons:Hyperthyroidis m TAKE 1 TABLET BY MOUTH EVERY DAY 90 Tablet 1 2 Active Ipratropium-[place] rol 20-100 MCG/ACT [...] FOR NAUSEA 60 Tablet 2 2 Active predniSONE 50 MG Oral Tablet (Deltasone)Indicat ions:Lower abdominal pain,Diverticuliti s of colon Take 1 tab 13 hrs before scan, take 1 tab 7 hrs before scan, take 1 tab 1 hr before scan with Benadryl 3 Tablet 0 2 Active HYDROcodone-Acetam inophen 5-325 MG Oral TabletIndications: Generalized osteoarthritis Take by mouth 1 Tablet every 6 hours as needed for Pain, Mild. 120 Tablet 0 2 Active Ciprofloxacin HCl 500 MG Oral Tablet (Cipro) Take by mouth 1 Tablet in the morning AND 1 Tablet before bedtime. Do all this for 12 days. 24 Tablet 0 2 06/19/20 22 Active metroNIDAZOLE 500 MG Oral Tablet Take by mouth 1 Tablet in the morning AND 1 Tablet at noon AND 1 Tablet before bedtime. Do all this for 12 days. 36 Tablet 0 2 06/19/20 22 Active Furosemide 40 MG Oral Tablet (Lasix)Indications :Chronic systolic heart failure (HCC),Paroxysmal atrial fibrillation (HCC),Chronic 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),NICM (nonischemic cardiomyopathy) (HCC),Chronic atrial fibrillation (HCC),Hospital discharge follow-up,Presence of Watchman left atrial appendage closure device TAKE 1 AND 1/2 TABLETS BY MOUTH 2 TIMES A DAY 270 Tablet 3 2 Active Sertraline HCl 25 MG Oral Tablet (Zoloft)Indication s:Major depressive disorder with single episode, in partial remission (HCC),HECTOR (generalized anxiety disorder) TAKE 1 TABLET BY MOUTH EVERY DAY IN THE MORNING 90 Tablet 1 2 Active Sertraline HCl 25 MG Oral Tablet (Zoloft)Indication s:Major depressive disorder with single episode, in partial remission (HCC),HECTOR (generalized anxiety disorder) Take by mouth 1 Tablet in the morning. 30 Tablet 5 2 06/12/20 22 Discontinued documented as of this encounter [...] Hypoxemia 10/08/2011 10/30/2015 Genetic Sleep Disorder Research Other*[id number] 07/25/2011 05/15/2016 COPD, moderate 07/19/2011 07/28/2019 Overview: [...] mRNA, LNP-s, No Pre serve, 2-Dose Series ([employer]riends) 08/21/2021,12/22/2020,2020 COVID-19, LNP-s, No Preserve , Tyler-sucrose, Ages 12+ (mobifriends) 04/16/2022 Hepatitis B, 20+ yrs 10/01/2017,04/21/2017,03/20 Pneumococcal [...] encounter Miscellaneous Notes * Telephone Encounter - Doug Hayward [facility] - 06/12/2022 11:00 AM EDT Signed Prescriptions: Disp Refills Sertraline HCl 25 MG Oral Tablet (Zoloft) 90 Tab*1 Sig: TAKE 1 TABLET BY MOUTH EVERY DAY IN THE MORNINGAuthorizing Provider: ALEX PINTO User: DOUG GONZALEZ documented in this encounter Plan of Treatment Upcoming Encounters Date Type Specialty Care Team Description 06/19/2022 Office Visit General Surgery Teresita Padron, KRISTAC [address] [place] [address] 06/25/2022 Office Visit Cardiology Hammad Lopez, 132 [facility] [place] [address] 07/11/2022 Office Visit Hematology Oncology Ida Cueva CRNP [address] [facility] [place] [address] Health Maintenance Due Date [...] Additional history exists CKD PHOS USE SMARTSET 35205 02/19/202302/10, 03/09/2021, 03/22/2019 DIABETES-EYE EXAM 03/08/2023 03/08/2022, , 08/07/2020, Additional history exists CKD HGB USE SMARTSET 59538 06/10/202306/10, 06/10/2022, 06/09/2022, Additional history exists O2 [...] disorder documented in this encounter Advance Directives Documents on File Type Date Recorded Patient Winterizer Expl anation Advanced 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 Directives occurred with: Not Discussed Care Teams Rn Telephone Triage Relationship Specialty Start Date End Date Alex Pinto MD [address] [place] [address] PCP - General Internal Medicine 08/04/14 documented as of this encounter
--- OUTSIDE RECORDS SUMMARY | 2023-06-18 02:46 | External Medical Summary | Summary of Care ---
Author Name Unknown Organization [place] [address] Care Team Providers Care Blunger Machine Operator Name Role Phone Marcela Pinto MD Primary Care Provider + Reason for Visit * Reason Onset Date Comments Appointment 06/12/2022 Encounter Details Date Type Department Care Team Description 06/12/2022 Telephone General Surgery, [place] [address] [place] [address] Services, [facility] [address] [place] [address] Appointment Allergies Active Allergy Reactions Severity Noted Date Comments Valsartan 07/10/2010 Enalapril 05/21/2006 Escitalopram Oxalate Nausea/vomiting 10/11/2009 Nauseated Iodinated Diagnostic Agents Nausea/vomiting 05/2010 IV Contrast Iodine Hives 12/18/2009 IV Contrast Metoprolol Tartrate 11/18/2006 Made pulse low [place] Oil-Black Currant-Vit E 07/10/2010 Verapamil 03/21/2004 Bupropion [...] Asthma with severity to be determined,COPD, moderate ([facility]) USE ONE NEBULIZER TREATMENT TWICE A DAY DIRECTED FOR WORSENING ASTHMA. J45.909, J44.9 225 mL 1 06/29/2019 Active Albuterol Sulfate (VENTOLIN HFA) 108 (90 Base) MCG/ACT AERS Inhale 2 Puffs by mouth 2 times a day. 0 12/27/2019 Active Lancets MISCIndications:Type 2 diabetes mellitus with hemoglobin A1c goal of less than 7.0% ([facility]) Use as directed. USE TO TEST BLOOD [...] fraction and diastolic dysfunction (HCC),NICM (nonischemic cardiomyopathy) ([facility]),Presence of Watchman left atrial appendage closure device Take 1 tab in the morning and 1/2 tab in the evening. 135 Tablet 3 10/04/2021 Active Spiriva Respimat 1.25 MCG/ACT Inhalation Aerosol Solution (Tiotropium [place] Monohydrate) Inhale by mouth. 0 Active Lisinopril [...] :Asthma with severity to be determined,COPD, moderate ([facility]) TAKE 1 PUFF BY MOUTH 4 TIMES [...] Hypoxemia 10/08/2011 10/30/2015 Genetic Sleep Disorder Research Other*[id number] 07/25/2011 05/15/2016 COPD, moderate 07/19/2011 07/28/2019 Overview: [...] mRNA, LNP-s, No Pre serve, 2-Dose Series ([employer]) 08/21/2021,12/22/2020,2020 COVID-19, LNP-s, No Preserve , Tyler-sucrose, [...] that she could have follow up in [place] Please advise if that's possible, and with which provider. Thank you! JORDAN Elizalde documented in this encounter Plan of Treatment Upcoming Encounters Date Type Specialty Care Team Description 06/19/2022 Office Visit General Surgery Teresita Padron PA-C [address] [facility] [place] [address] 06/25/2022 Office Visit Cardiology Hammad Lopez, DO [address] [facility] [place] [address] 07/11/2022 Office Visit Hematology Oncology Ida Cueva CRNP [address] 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
--- OUTSIDE RECORDS SUMMARY | 2023-06-18 02:46 | External Medical Summary | Summary of Care ---
Author Name Unknown Organization [place] [address] Care Team Providers Care Aircraft Shipping Checker Name Role Phone Marcela Pinto MD Primary Care Provider + Reason for Visit * Reason Onset Date Comments Other 06/10/2022 Encounter Details Date Type Department Care Team Description 06/10/2022 Telephone General Internal Medicine [facility] [address] [place] [id number] Marcela Pinto MD [address] [place] [address] Other Allergies Active Allergy Reactions Severity Noted Date Comments Valsartan 07/10/2010 Enalapril 05/21/2006 Escitalopram Oxalate Nausea/vomiting 10/11/2009 Nauseated Iodinated Diagnostic Agents Nausea/vomiting 05/2010 IV Contrast Iodine Hives 12/18/2009 IV Contrast Metoprolol Tartrate 11/18/2006 Made pulse low [place] Oil-Black Currant-Vit E 07/10/2010 Verapamil 03/21/2004 Bupropion [...] to be determined,COPD, moderate ([facility]) USE ONE NEBULIZER TREATMENT TWICE A DAY DIRECTED FOR WORSENING ASTHMA. J45.909, J44.9 225 mL 1 06/29/2019 Active Albuterol Sulfate (VENTOLIN HFA) 108 (90 Base) MCG/ACT AERS Inhale 2 Puffs by mouth 2 times a day. 0 12/27/2019 Active Lancets MISCIndications:Type 2 diabetes mellitus with hemoglobin A1c goal of less than 7.0% ([facility]) Use as directed. USE TO TEST BLOOD [...] Inhalation Aerosol Solution (Tiotropium [place] Monohydrate) Inhale by mouth. 0 Active Lisinopril 2.5 MG Oral Tablet (Prinivil)Indication s:Paroxysmal atrial fibrillation ([facility]),Chronic systolic heart failure ([facility]) Take by mouth 1 Tablet in the [...] Hypoxemia 10/08/2011 10/30/2015 Genetic Sleep Disorder Research Other*[id number] 07/25/2011 05/15/2016 COPD, moderate 07/19/2011 07/28/2019 Overview: [...] Called and spoke with Rosa Elena from [facility] and informed her of Dr. Pinto'sprevious message. She verbalized understanding of all information. Rosa Elena said she was just calling to let Dr. Pinto know they would going out to see the patient andalso to confirm the patient's address. Nothing else further needed. FYI. * Telephone Encounter - Marcela Pinto MD - 06/10/2022 4:47 PM EDT Not sure what is there question. Usually COMMERCIAL DEVELOPMENT MANAGER sends us the update on pt's condition [...] General Surgery Teresita Padron, PA-C [address] [place], [place] [id number] 06/25/2022 Office Visit Cardiology Hammad Lopez, DO [address] [facility] [place] [address] 07/11/2022 Office Visit Hematology Oncology Ida Cueva CRNP [address] [facility] [place] [address] Health Maintenance [...] Additional history exists CKD PHOS USE SMARTSET 75692 02/19/202302/10, 03/09/2021, 03/22/2019 DIABETES-EYE EXAM 03/08/2023 03/08/2022, , 08/07/2020, Additional history exists CKD HGB USE SMARTSET 57302 06/10/202306/10, 06/10/2022, 06/09/2022, Additional history exists O2 [...] Documents on File Type Date Recorded Patient Pulling Unit Floorhand Expl anation Advanced 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 Directives occurred with: Not Discussed Care Teams Aircraft Shipping Checker Relationship Specialty Start Date End Date Marcela Pinto MD [address] [place] [address] PCP - General Internal Medicine 08/04/14 documented as of this encounter
--- OUTSIDE RECORDS SUMMARY | 2023-06-18 02:46 | External Medical Summary | Summary of Care ---
Author Name Unknown Organization [place] [address] Care Team Providers Care Reinforcing Rod Layer Name Role Phone Marcela Pinto MD Primary Care Provider + Reason for Visit * Reason Comments eRx-Medication Refill Encounter Details Date Type Department Care Team Description 06/14/2022 Refill General Internal Medicine [facility] [place] [address] [facility] [place] [id number] Marcela Pinto MD [address] [facility] [place] [id number] Ischemic colitis (HCC); Chronic systolic heart failure (HCC); Paroxysmal atrial fibrillation (HCC); Chronic 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); NICM (nonischemic cardiomyopathy) (HCC); Chronic atrial fibrillation (HCC); Hospital discharge follow-up; Presence of Watchman left atrial appendage closure device Allergies Active Allergy Reactions Severity Noted Date Comments Valsartan 07/10/2010 Enalapril 05/21/2006 Escitalopram Oxalate Nausea/vomiting 10/11/2009 Nauseated Iodinated Diagnostic Agents Nausea/vomiting 05/2010 IV Contrast Iodine Hives 12/18/2009 IV Contrast Metoprolol Tartrate 11/18/2006 Made pulse low [place] Oil-Black Currant-Vit E 07/10/2010 Verapamil 03/21/2004 Bupropion Hcl 10/30/2009 Makes pt sick in the stomach documented as of this encounter (statuses as of 06/14/2022) Medications Medication Sig Dispensed Refills Start Date [...] than 7.0% ([facility]) Use as directed. USE TO TEST BLOOD [...] Respimat 1.25 MCG/ACT Inhalation Aerosol Solution (Tiotropium [place] Monohydrate) Inhale by mouth. 0 Active Lisinopril [...] WITH BREAKFAST 90 Tablet 1 2 Active EdithTouch [place] In Vitro Strip (Glucose Blood) Checks blood [...] 36 Tablet 0 2 06/19/20 22 Active Sertraline HCl 25 MG Oral Tablet (Zoloft)Indication s:Major depressive disorder with single episode, in partial remission (HCC),HECTOR (generalized anxiety disorder) TAKE 1 TABLET BY MOUTH EVERY DAY IN THE MORNING 90 Tablet 1 2 Active Omeprazole 20 MG Oral Capsule Delayed Release (PriLOSEC)Indicati ons:Ischemic colitis (HCC) TAKE 1 CAPSULE BY MOUTH TWICE A DAY 180 Capsule 3 2 Active Furosemide 40 MG Oral Tablet (Lasix)Indications :Chronic systolic heart failure (HCC),Paroxysmal atrial fibrillation (HCC),Chronic 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),NICM (nonischemic cardiomyopathy) (HCC),Chronic atrial fibrillation (HCC),Hospital discharge follow-up,Presence of Watchman left atrial appendage closure device TAKE 1 TABLET BY MOUTH IN THE MORNING, AND 1/2 TABLET IN THE EVENING 135 Tablet 3 2 Active Ondansetron 8 MG Oral Tablet Disintegrating (Zofran) DISSOLVE 1 TABLET ON TONGUE EVERY 8 HOURS NEEDED FOR NAUSEA 60 Tablet 5 2 Active ondansetron ODT (ZOFRAN) [address] 8 mg on tongue every 8 hours as needed for Nausea. dissolve on tongue. 0 06/14/20 22 Discontinued Omeprazole 20 MG Oral Capsule Delayed Release (PriLOSEC)Indicati ons:Ischemic colitis (HCC) TAKE 1 CAPSULE BY MOUTH TWICE A DAY 180 Capsule 3 1 06/14/20 22 Discontinued Furosemide 40 MG Oral Tablet (Lasix)Indications :Chronic systolic heart failure (HCC),Paroxysmal atrial fibrillation (HCC),Chronic 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),NICM (nonischemic cardiomyopathy) (HCC),Chronic atrial fibrillation (HCC),Hospital discharge follow-up,Presence of Watchman left atrial appendage closure device TAKE 1 AND 1/2 TABLETS BY MOUTH 2 TIMES A DAY 270 Tablet 3 2 06/14/20 22 Discontinued documented as of this encounter (statuses as of 06/14/2022) Active Problems Problem Noted Date Gastroparesis 05/13/2022 [...] as of this encounter (statuses as of 06/14/2022) Resolved Problems Problem Noted Date Resolved Date [...] Hypoxemia 10/08/2011 10/30/2015 Genetic Sleep Disorder Research Other*[id number] 07/25/2011 05/15/2016 COPD, moderate 07/19/2011 07/28/2019 Overview: [...] as of this encounter (statuses as of 06/14/2022) Immunizations Name Administration Dates Next Due COVID-19 mRNA, LNP-s, No Pre serve, 2-Dose Series (RxAnte) 08/21/2021,12/22/2020,2020 COVID-19, LNP-s, No Preserve , Tyler-sucrose, [...] encounter Miscellaneous Notes * Telephone Encounter - María Hay, [facility] - 06/14/2022 2:11 PM EDT Signed Prescriptions: Disp Refills Omeprazole 20 MG Oral Capsule Delayed Rele*180 Ca*3 Sig: TAKE 1 CAPSULE BY MOUTH TWICE A DAYAuthorizing Provider: CATHY DICKINSON User: MARÍA HAY Furosemide 40 MG Oral Tablet (Lasix) 135 Ta*3 Sig: TAKE 1 TABLET BY MOUTH IN THE MORNING, AND 1/2 TABLET IN THE EVENINGAuthorizing Provider: CATHY DICKINSON User: DELMY HAY Ondansetron 8 MG Oral Tablet Disintegratin*60 Tab*5 Sig: DISSOLVE 1 TABLET ON TONGUE EVERY 8 HOURS NEEDED FOR NAUSEAAuthorizing Provider: CATHY DICKINSON User: MARÍA HAY- documented in this encounter Plan of Treatment Upcoming Encounters Date Type Specialty Care Team Description 06/25/2022 Office Visit Cardiology Hammad Lopez, DO [address] [facility] [place] [address] 07/08/2022 Office Visit General Surgery Teresita Padron PA-C [address] [place] [address] 07/11/2022 Office Visit Hematology Oncology Ida Cueva CRNP [address] [place] [address] Health Maintenance Due Date Last [...] Additional history exists CKD PHOS USE SMARTSET 84180 02/19/202302/10, 03/09/2021, 03/22/2019 DIABETES-EYE EXAM 03/08/2023 03/08/2022, , 08/07/2020, Additional history exists CKD HGB USE SMARTSET 45581 06/10/202306/10, 06/10/2022, 06/09/2022, Additional history exists O2 [...] as of this encounter Visit Diagnoses Diagnosis Ischemic colitis (HCC) Unspecified vascular insufficiency of intestine Chronic systolic heart failure (HCC) Chronic systolic heart failure Paroxysmal atrial fibrillation (HCC) Atrial fibrillation Chronic 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) NICM (nonischemic cardiomyopathy) (HCC) Other primary cardiomyopathies Chronic atrial fibrillation (HCC) Atrial fibrillation Hospital discharge follow-up Other follow-up examination Presence of Watchman left atrial appendage closure device documented in this encounter Advance Directives Documents on File Type Date Recorded Patient Director Teen Post Expl anation Advanced 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 Directives occurred with: Not Discussed Care Teams Reinforcing Rod Layer Relationship Specialty Start Date End Date Marcela Pinto MD [address] [place] [address] PCP - General Internal Medicine 08/04/14 documented as of this encounter
--- OUTSIDE RECORDS SUMMARY | 2023-06-18 02:46 | External Medical Summary | Summary of Care ---
Author Name Unknown Organization [place] [address] Care Team Providers Care Clamp Remover Name Role Phone Marcela Pinto MD Primary Care Provider + Reason for Visit * Reason Comments eRx-Medication Refill Encounter Details Date Type Department Care Team Description 06/08/2022 Refill Cardiology, [facility] [address] [place] [address] Dulce Gerber CRNP [address] [place] [address] Chronic systolic heart failure (HCC); Paroxysmal atrial [...] Contrast Metoprolol Tartrate 11/18/2006 Made pulse low [place] Oil-Black Currant-Vit E 07/10/2010 Verapamil 03/21/2004 Bupropion Hcl 10/30/2009 Makes pt sick in the stomach documented as of this encounter (statuses as of 06/11/2022) Medications Medication Sig Dispensed Refills Start Date [...] Respimat 1.25 MCG/ACT Inhalation Aerosol Solution (Tiotropium [place] Monohydrate) Inhale by mouth. 0 Active Lisinopril [...] WITH BREAKFAST 90 Tablet 1 2 Active Sertraline HCl 25 MG Oral Tablet (Zoloft)Indication s:Major depressive disorder with single episode, in partial remission (HCC),HECTOR (generalized anxiety disorder) Take by mouth 1 Tablet in the morning. 30 Tablet 5 2 Active OneTouch Verio In Vitro Strip [...] A DAY 270 Tablet 3 2 Active Furosemide 40 MG Oral Tablet (Lasix)Indications :Chronic systolic heart failure (HCC),Paroxysmal atrial fibrillation (HCC),Chronic 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),NICM (nonischemic cardiomyopathy) (HCC),Chronic atrial fibrillation (HCC),Hospital discharge follow-up,Presence of Watchman left atrial appendage closure device Take 1.5 Tablets by mouth 2 times a day. 270 Tablet 1 2 06/11/20 22 Discontinued documented as of this encounter (statuses as of 06/11/2022) Active Problems Problem Noted Date Gastroparesis 05/13/2022 [...] as of this encounter (statuses as of 06/11/2022) Resolved Problems Problem Noted Date Resolved Date [...] Hypoxemia 10/08/2011 10/30/2015 Genetic Sleep Disorder Research Other*[id number] 07/25/2011 05/15/2016 COPD, moderate 07/19/2011 07/28/2019 Overview: [...] as of this encounter (statuses as of 06/11/2022) Immunizations Name Administration Dates Next Due COVID-19 [...] * Telephone Encounter - NIECY Holder - 06/11/2022 3:01 PM EDT Signed Prescriptions: Disp Refills Furosemide 40 MG Oral Tablet (Lasix) 270 Ta*3 Sig: TAKE 1 AND 1/2 TABLETS BY MOUTH 2 TIMES A DAY Authorizing Provider: DULCE GERBER * Telephone Encounter - Darren Mejia RN - 06/11/2022 2:55 PM EDT Pending Prescriptions: Disp Refills Furosemide 40 MG Oral Tablet (Lasix) [Pha*270 Ta*3 Sig: TAKE 1 AND 1/2 TABLETS BY MOUTH 2 TIMES A DAY * Telephone Encounter - Darren Mejia RN - 06/11/2022 2:54 PM EDT Pending Prescriptions: Disp Refills Furosemide 40 MG Oral Tablet (Lasix) [Pha*270 Ta*3 Sig: TAKE 1 AND 1/2 TABLETS BY MOUTH 2 TIMES A DAY Last Visit: 12/27/2021 (in office), Visit date not found (telemedicine) Next Visit: 06/25/2022 Last medication order date: 10/31/2021 Have you choosen a preferred pharm?? yes [...] of less than 7.5% ([facility]) E11.9 Elevated plasma metanephrines R79.89 Irritable bowel syndrome with constipation K58.1 HECTOR (generalized anxiety disorder) F41.1 COPD, group B, 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 ([facility]) J44.9 Morbid obesity with BMI of 40.0-44.9, adult ([facility]) E66.01, Z68.41 Gastro-esophageal reflux disease without esophagitis K21.9 Paroxysmal atrial fibrillation ([facility]) I48.0 Chronic systolic heart failure ([facility]) I50.22 Pulmonary HTN ([facility]) I27.20 Chronic hypoxemic respiratory failure ([facility]) J96.11 Chronic kidney disease, stage 3a ([facility]) N18.31 Subclinical hyperthyroidism E05.90 History of ESBL E. coli infection Z86.19 Type 2 diabetes mellitus with stage 3a chronic kidney disease, without long- term current use ofinsulin ([facility]) E11.22, N18.31 Gastroparesis K31.84 Labs: Lab Results Component Value Date/Time CREATININE - [facility] 0.7 06/10/2022 07:11 AM CREATININE - [facility] 1.0 05/27/2020 04:51 PM CREATININE TIM 221 08/26/2019 02:57 PM CREATININE TIM - [facility] 75 04/24/2021 01:21 PM CREATININE, 24 HOUR URINE - [facility] 1.106 02/26/2017 09:11 AM CREATININE, RANDOM URINE - [facility] 69 02/19/2022 04:09 PM CREATININE, RANDOM URINE - [facility] 128 07/09/2019 01:57 PM CREATININE-OUTSIDE LAB 1.08 (A) 06/12/2021 12:00 AM Lab Results Component Value Date/Time POTASSIUM - [facility] 3.6 06/10/2022 07:11 AM POTASSIUM - [facility] 4.0 05/27/2020 04:51 PM POTASSIUM-OUTSIDE LAB 4.1 06/12/2021 12:00 AM Lab Results Component Value Date/Time [...] MEASURE) - [facility] 114 01/14/2018 12:03 PM Lab Results Component Value Date/Time ALT - [facility] 6 (L) 05/13/2022 02:23 PM ALT - [facility] 15 05/27/2020 04:51 [...] General Surgery Teresita Padron, PA-C [address] [place] [address] 06/25/2022 Office Visit Cardiology Hammad Lopez, DO [address] [facility] [place] [address] 07/11/2022 Office Visit Hematology Oncology Ida Cueva CRNP [address] [facility] [place] [address] Health Maintenance [...] Additional history exists CKD PHOS USE SMARTSET 00899 02/19/202302/10, 03/09/2021, 03/22/2019 DIABETES-EYE EXAM 03/08/2023 03/08/2022, , 08/07/2020, Additional history exists CKD HGB USE SMARTSET 49089 06/10/202306/10, 06/10/2022, 06/09/2022, Additional history exists O2 [...] Documents on File Type Date Recorded Patient Hooking Machine Operator Expl 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 Directives occurred with: Not Discussed Care Teams Clamp Remover Relationship Specialty Start Date End Date Marcela Pinto MD [address] [place] [address] PCP - General Internal Medicine 08/04/14 documented as of this encounter
--- OUTSIDE RECORDS SUMMARY | 2023-06-18 02:46 | External Medical Summary | Summary of Care ---
Author Name Unknown Organization [place] [address] Care Team Providers Care Zone Supervisor Firearms Name Role Phone Marcela Pinto MD Primary Care Provider + Reason for Visit * Reason Onset Date Comments Appointment 06/12/2022 Encounter Details Date Type Department Care Team Description 06/12/2022 Telephone General Surgery, [place] [address] [place] [address] Services, [facility] [address] [place] [address] Appointment Allergies Active Allergy Reactions Severity Noted Date Comments Valsartan 07/10/2010 Enalapril 05/21/2006 Escitalopram Oxalate Nausea/vomiting 10/11/2009 Nauseated Iodinated Diagnostic Agents Nausea/vomiting 05/2010 IV Contrast Iodine Hives 12/18/2009 IV Contrast Metoprolol Tartrate 11/18/2006 Made pulse low [place] Oil-Black Currant-Vit E 07/10/2010 Verapamil 03/21/2004 Bupropion [...] Asthma with severity to be determined,COPD, moderate ([facility]) USE ONE NEBULIZER TREATMENT TWICE A DAY DIRECTED FOR WORSENING ASTHMA. J45.909, J44.9 225 mL 1 06/29/2019 Active Albuterol Sulfate (VENTOLIN HFA) 108 (90 Base) MCG/ACT AERS Inhale 2 Puffs by mouth 2 times a day. 0 12/27/2019 Active Lancets MISCIndications:Type 2 diabetes mellitus with hemoglobin A1c goal of less than 7.0% ([facility]) Use as directed. USE [...] fraction and diastolic dysfunction (HCC),NICM (nonischemic cardiomyopathy) ([facility]),Presence of Watchman left atrial appendage closure device Take 1 tab in the morning and 1/2 tab in the evening. 135 Tablet 3 10/04/2021 Active Spiriva Respimat 1.25 MCG/ACT Inhalation Aerosol Solution (Tiotropium [place] Monohydrate) Inhale by mouth. 0 Active Lisinopril [...] :Asthma with severity to be determined,COPD, moderate ([facility] [...] Hypoxemia 10/08/2011 10/30/2015 Genetic Sleep Disorder Research Other*[id number] 07/25/2011 05/15/2016 COPD, moderate 07/19/2011 07/28/2019 Overview: [...] mRNA, LNP-s, No Pre serve, 2-Dose Series ([employer]) 08/21/2021,12/22/2020,2020 COVID-19, LNP-s, No Preserve , Tyler-sucrose, [...] that she could have follow up in [place] Please advise if that's possible, and with which provider. Thank you! JORDAN Elizalde documented in this encounter Plan of Treatment Upcoming Encounters Date Type Specialty Care Team Description 06/19/2022 Office Visit General Surgery Teresita Padron PA-C [address] [facility] [place] [address] 06/25/2022 Office Visit Cardiology Hammad Lopez, DO [address] [facility] [place] [address] 07/11/2022 Office Visit Hematology Oncology Ida Cueva CRNP [address] [facility] [place] [address] Health Maintenance [...] Additional history exists CKD PHOS USE SMARTSET 65971 02/19/202302/10, 03/09/2021, 03/22/2019 DIABETES-EYE EXAM 03/08/2023 03/08/2022, , 08/07/2020, Additional history exists CKD HGB USE SMARTSET 90607 06/10/202306/10, 06/10/2022, 06/09/2022, Additional history exists O2 [...] Documents on File Type Date Recorded Patient Weight Control Engineer Expl 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 Directives occurred with: Not Discussed Care Teams Zone Supervisor Firearms Relationship Specialty Start Date End Date Marcela Pinto MD [address] [place] [address] PCP - General Internal Medicine 08/04/14 documented as of this encounter
--- OUTSIDE RECORDS SUMMARY | 2023-06-18 02:46 | External Medical Summary | Summary of Care ---
Author Name Unknown Organization [place] [address] Care Team Providers Care Skate Shop Attendant Name Role Phone Marcela Pinto MD Primary Care Provider + Reason for Visit * Reason Onset Date Comments Appointment 06/12/2022 Encounter Details Date Type Department Care Team Description 06/12/2022 Telephone General Surgery, [place] [address] [place], [place] [address] Services, [facility] [address] [place] [address] Appointment Allergies Active Allergy Reactions Severity Noted Date Comments Valsartan 07/10/2010 Enalapril 05/21/2006 Escitalopram Oxalate Nausea/vomiting 10/11/2009 Nauseated Iodinated Diagnostic Agents Nausea/vomiting 05/2010 IV Contrast Iodine Hives 12/18/2009 IV Contrast Metoprolol Tartrate 11/18/2006 Made pulse low [place] Oil-Black Currant-Vit E 07/10/2010 Verapamil 03/21/2004 Bupropion Hcl 10/30/2009 Makes pt sick in the stomach documented as of this encounter (statuses as of 06/13/2022) Medications Medication Sig Dispensed Refills Start Date [...] be determined,COPD, moderate ([facility]) USE ONE NEBULIZER TREATMENT TWICE A DAY DIRECTED FOR WORSENING ASTHMA. J45.909, J44.9 225 mL 1 06/29/2019 Active Albuterol Sulfate (VENTOLIN HFA) 108 (90 Base) MCG/ACT AERS Inhale 2 Puffs by mouth 2 times a day. 0 12/27/2019 Active Lancets MISCIndications:Type 2 diabetes mellitus with hemoglobin A1c goal of less than 7.0% ([facility]) Use as directed. USE TO TEST BLOOD [...] fraction and diastolic dysfunction (HCC),NICM (nonischemic cardiomyopathy) ([facility]),Presence of Watchman left atrial appendage closure device Take 1 tab in the morning and 1/2 tab in the evening. 135 Tablet 3 10/04/2021 Active Spiriva Respimat 1.25 MCG/ACT Inhalation Aerosol Solution (Tiotropium [place] Monohydrate) Inhale by mouth. 0 Active Lisinopril [...] :Asthma with severity to be determined,COPD, moderate ([facility]) TAKE 1 PUFF BY MOUTH 4 TIMES [...] as of this encounter (statuses as of 06/13/2022) Active Problems Problem Noted Date Gastroparesis 05/13/2022 [...] as of this encounter (statuses as of 06/13/2022) Resolved Problems Problem Noted Date Resolved Date [...] Hypoxemia 10/08/2011 10/30/2015 Genetic Sleep Disorder Research Other*[id number] 07/25/2011 05/15/2016 COPD, moderate 07/19/2011 07/28/2019 Overview: [...] as of this encounter (statuses as of 06/13/2022) Immunizations Name Administration Dates Next Due COVID-19 [...] * Telephone Encounter - JORDAN Elizalde - 06/13/2022 11:02 AM EDT FYI Pt scheduled 07/08/22 HD at [place] with Teresita Padron Thanks for your help! JORDAN Elizalde * Telephone Encounter - JORDAN Elizalde - 06/12/2022 3:19 PM EDT Pt has hd 06/19/22 with Teresita Padron. Cannot make appt. First available more than two weeks out. Pt said that she was told in hospital that she could have follow up in [place] Please advise if that's possible, and with which provider. Thank you! JORDAN Elizalde documented in this encounter Plan of Treatment Upcoming Encounters Date Type Specialty Care Team Description 06/25/2022 Office Visit Cardiology Hammad Lopez, DO [address] [facility] [place] [address] 07/08/2022 Office Visit General Surgery Teresita Padron PA-C [address] [place] [address] 07/11/2022 Office Visit Hematology Oncology Ida Cueva CRNP [address] [place] [address] Health Maintenance Due Date Last [...] Additional history exists CKD PHOS USE SMARTSET 63047 02/19/202302/10, 03/09/2021, 03/22/2019 DIABETES-EYE EXAM 03/08/2023 03/08/2022, , 08/07/2020, Additional history exists CKD HGB USE SMARTSET 94484 06/10/202306/10, 06/10/2022, 06/09/2022, Additional history exists O2 [...] Documents on File Type Date Recorded Patient Tension Machine Operator Expl 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 Directives occurred with: Not Discussed Care Teams Skate Shop Attendant Relationship Specialty Start Date End Date Marcela Pinto MD [address] [place] [address] PCP - General Internal Medicine 08/04/14 documented as of this encounter
--- OUTSIDE RECORDS SUMMARY | 2023-06-18 02:47 | External Medical Summary ---
Author Name Unknown Address Unknown Organization [id number] [place] [address] [facility] [address] Laboratory Report Ordering Provider Test Date Status AMI GRADY 06/09/2022 08:36:00 Final Observation Date Value Abnormality Reference (Units ) Status SYNC LEUKOCYTES IN BLOOD BY AUTOMATED COUNT 06/09/2022 08:36:00 9.08 4.00-10.80 (K/uL) Final Segs 06/09/2022 08:36:00 54.8 40.0-75.0 (%) Final Lymphs % 06/09/2022 08:36:00 23.7 18.0-42.0 (%) Final Monos 06/09/2022 08:36:00 12.2 Above high normal 1.0-11.0 (%) Final Eosinophils 06/09/2022 08:36:00 7.6 Above high normal 0.0-6.0 (%) Final Basos 06/09/2022 08:36:00 0.6 0.0-2.0 (%) Final Immature Granulocyte, Percent 06/09/2022 08:36:00 1.1 0.0-2.0 (%) Final Absolute Segs 06/09/2022 08:36:00 4.98 1.80-7.70 (K/uL) Final Lymphs, absolute 06/09/2022 08:36:00 2.15 1.00-4.80 (K/ul) Final Monos, Abs 06/09/2022 08:36:00 1.11 Above high normal 0.00-1.10 (K/uL) Final Eos, Abs 06/09/2022 08:36:00 0.69 0.00-0.70 (K/uL) Final Basos, Abs 06/09/2022 08:36:00 0.05 0.00-0.20 (K/uL) Final Immature Granulocytes, Number 06/09/2022 08:36:00 0.10 0.00-0.20 (K/uL) Final Performing Location [facility] [place] [facility] [address] [facility] [address]
--- OUTSIDE RECORDS SUMMARY | 2023-06-18 02:47 | External Medical Summary ---
Author Name Unknown Address Unknown Organization [id number]:[facility] [place] [address] [facility] [address] Laboratory Report Ordering Provider Test Date Status AMI GRADY 06/08/2022 08:28:00 Final Observation Date Value Abnormality Reference (Units ) Status SYNC LEUKOCYTES IN BLOOD BY AUTOMATED COUNT 06/08/2022 08:28:00 10.49 4.00-10.80 (K/uL) Final Segs 06/08/2022 08:28:00 59.3 40.0-75.0 (%) Final Lymphs % 06/08/2022 08:28:00 22.3 18.0-42.0 (%) Final Monos 06/08/2022 08:28:00 10.8 1.0-11.0 (%) Final Eosinophils 06/08/2022 08:28:00 6.3 Above high normal 0.0-6.0 (%) Final Basos 06/08/2022 08:28:00 0.4 0.0-2.0 (%) Final Immature Granulocyte, Percent 06/08/2022 08:28:00 0.9 0.0-2.0 (%) Final Absolute Segs 06/08/2022 08:28:00 6.23 1.80-7.70 (K/uL) Final Lymphs, absolute 06/08/2022 08:28:00 2.34 1.00-4.80 (K/ul) Final Monos, Abs 06/08/2022 08:28:00 1.13 Above high normal 0.00-1.10 (K/uL) Final Eos, Abs 06/08/2022 08:28:00 0.66 0.00-0.70 (K/uL) Final Basos, Abs 06/08/2022 08:28:00 0.04 0.00-0.20 (K/uL) Final Immature Granulocytes, Number 06/08/2022 08:28:00 0.09 0.00-0.20 (K/uL) Final Performing Location [facility] [place] - [facility] [place] [address] [address]
--- OUTSIDE RECORDS SUMMARY | 2023-06-18 02:47 | External Medical Summary ---
Author Name Unknown Address Unknown Organization : Laboratory Report Ordering Provider Test Date Status NADIRA GURROLA 06/09/2022 11:23:57 Final Observation Date Value Abnormality Reference (Units ) Status Glucose Point of Care 06/09/2022 11:23:57 125 Above high normal 70-120 (mg/dL) Final Performing Location
--- OUTSIDE RECORDS SUMMARY | 2023-06-18 02:47 | External Medical Summary ---
Author Name Unknown Address Unknown Organization : Laboratory Report Ordering Provider Test Date Status NADIRA GURROLA 06/08/2022 21:17:23 Final Observation Date Value Abnormality Reference (Units ) Status Glucose Point of Care 06/08/2022 21:17:23 153 Above high normal 70-120 (mg/dL) Final Performing Location
--- OUTSIDE RECORDS SUMMARY | 2023-06-18 02:47 | External Medical Summary ---
Author Name Unknown Address Unknown Organization : Laboratory Report Ordering Provider Test Date Status NADIRA GURROLA 06/10/2022 07:50:58 Final Observation Date Value Abnormality Reference (Units ) Status Glucose Point of Care 06/10/2022 07:50:58 98 70-120 (mg/dL) Final Performing Location
--- OUTSIDE RECORDS SUMMARY | 2023-06-18 02:47 | External Medical Summary ---
Author Name Unknown Address Unknown Organization : Laboratory Report Ordering Provider Test Date Status NADIRA GURROLA 06/08/2022 07:23:45 Final Observation Date Value Abnormality Reference (Units ) Status Glucose Point of Care 06/08/2022 07:23:45 95 70-120 (mg/dL) Final Performing Location
--- OUTSIDE RECORDS SUMMARY | 2023-06-18 02:47 | External Medical Summary | Summary of Care ---
Author Name Unknown Organization [place] [address] Care Team Providers Care Talent Specialist Name Role Phone Marcela Pinto MD Primary Care Provider + Reason for Visit * Auth/Cert Specialty Diagnoses / Procedures Referred By Miguel Angel roe Referred To Contact Diagnoses Diverticulitis complicated diverticulitis Referral ID Status Reason Start Date Expiration Date Visits Re quested Visits Authorized [id number] Encounter Details Date Type Department Care Team Description 06/06/2022 - 06/10/2022 Hospital Encounter [id number] [address] [place] [address] Dionte Snyder MD [address] [place], [place] [id number] Allergies Active Allergy Reactions Severity Noted Date Comments Valsartan 07/10/2010 Enalapril 05/21/2006 Escitalopram Oxalate Nausea/vomiting 10/11/2009 Nauseated Iodinated Diagnostic Agents Nausea/vomiting 05/2010 IV Contrast Iodine Hives 12/18/2009 IV Contrast Metoprolol Tartrate 11/18/2006 Made pulse low [place] Oil-Black Currant-Vit E 07/10/2010 Verapamil 03/21/2004 [...] Respimat 1.25 MCG/ACT Inhalation Aerosol Solution (Tiotropium Brantley Monohydrate) Inhale by mouth. 0 Active Furosemide 40 MG Oral Tablet (Lasix)Indications:C hronic systolic heart failure (HCC),Paroxysmal atrial fibrillation (HCC),Chronic 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),NICM (nonischemic cardiomyopathy) (HCC),Chronic atrial fibrillation (HCC),Hospital discharge follow-up,Presence of Watchman left atrial appendage closure device Take 1.5 Tablets by mouth 2 times a day. 270 Tablet 1 10/31/2021 Active Lisinopril 2.5 MG Oral Tablet (Prinivil)Indication [...] Hypoxemia 10/08/2011 10/30/2015 Genetic Sleep Disorder Research Other*[id number] 07/25/2011 05/15/2016 COPD, moderate 07/19/2011 07/28/2019 Overview: [...] mRNA, LNP-s, No Pre serve, 2-Dose Series (eCullet) 08/21/2021,12/22/2020,2020 COVID-19, LNP-s, No Preserve , Tyler-sucrose, [...] Sign Reading Time Taken Comments Blood Pressure 118/77 06/10/2022 8:20 AM EDT Pulse 61 06/10/2022 8:20 AM EDT Temperature 36.3 C (97.4 F) 06/10/2022 8:20 AM ED T Respiratory Rate 18 06/10/2022 8:20 AM EDT Oxygen Saturation 98% 06/10/2022 8:20 AM EDT Inhaled Oxygen Concentration - - Weight 101.3 kg (223 lb 4.8 oz) 06/06/2022 4:26 PM EDT Height 165.1 cm (5' 5") 06/06/2022 4:26 PM EDT Body Mass Index 37.16 06/06/2022 4:26 PM EDT documented in this [...] No 06/06/2022 documented as of this encounter Discharge Instructions * Discharge Instr - AVS* NIECY Newman - 06/07/2022 1:09 PM EDT Discharge Date: 06/10/2022 You may call Doctor Snyder of the department of Colorectal Surgery at [phone] during business hours for any questions or test results. For after-hours emergencies call [phone] and have your doctor paged. The information below provides you with [...] your inpatient care: You were admitted to [facility] on 06/06/22 for diverticulitis. You were treated non-surgically and tolerated it well. You had adequate pain controland tolerated a diet before discharge. Your primary diagnosis at discharge was diverticulitis. Your doctors during this hospitalization included: - Dr Snyder (Colorectal Surgery) Inpatient test results pending: None Operations & Procedures: None Complications: none Advance Directive Documented: Advance Directive Does the Patient have an Advance Directive? No Diet: Fiber restricted diet. - A fiber restricted diet reduces the size and number of your stools. No fresh fruit or vegetables. Examples of fiber restricted diet: Refined breads, cereals, crackers, chips and pasta with less than 1 gram of fiber per serving, white rice, juices without seeds or pulp, milk, yogurt, pudding, ice cream, and cream-based soups and sauces (strained), tender meat, poultry, fish, eggs, oil, broth-based soups (strained), jelly, honey and syrup. Activity: As tolerated Driving: Don't drive until you are off narcotics for one full week and can walk normally and firmlyapply the brake without pain. If you are still having pain with exertion or rapid movement, you should not drive. Date you may return to work or school: N/A See your primary care physician (Marcela Pinto MD) as needed. Special Instructions: Call the Surgery office at [phone] if you have any questions or concerns or if you experience any of the following: - Elevated temperatures of 101.5 degrees or greater - Persistent nausea and vomiting - Pain that is not controlled with prescribed medications - Follow up with Teresita Padron PA-C on 06/19/22. - You are being discharged with a prescription for metronidazole. Avoid ALL alcohol containing products (including mouthwash, medication, etc) while taking metronidazole. Combining alcohol and metronidazole will result in severe vomiting and abdominal pain documented in this encounter Progress Notes * Chuck Virgen MD - 06/09/2022 7:35 AM EDT PROGRESS NOTE - Trauma/Emergency Surgery [facility] [address] Name: Nina Harrington Location: [facility] B643/A Date: 06/09/2022 Time: 7:37 AM DIAGNOSIS: Complicated diverticulitis, colovaginal fistula SUBJECTIVE: Examined at bedside Doing better overall No acute events overnight Pain is better controlled AF HDS Having bowel function Denies any fevers, chills, CP, SOB, N/V OBJECTIVE: Most Recent Vital Signs: BP: 121 mmHg/63 mmHg (06/09/22656) Pulse: 99 (06/09/22656) Temp: 35.78 C (06/09/22656) Resp: 18 (06/09/22656) SpO2: 99 % (06/09/22656) Vital Signs Last 24 Hours: Systolic BP: Most Recent Systolic BP Av.6 mmHg Min: 96 mmHg Max: 121 mmHg Temperature: Most Recent Temperature Av.4 C Min: 35.78 C Max: 37.22 C Pulse: Pulse Av.4 Min: 67 Max: 99 Respirations: Resp Av.8 Min: 17 Max: 18 SpO2: SpO2 Av % Min: 97 % Max: 99 % Intake/Output Summary (Last 24 hours) at 06/09/2022 0737 Last data filed at 06/09/2022 0600 Gross per 24 hour Intake 344 ml Output 1725 ml Net -1381 ml Physical Exam: Constitutional: no acute distress HEENT: normocephalic, atraumatic Eyes: sclera and conjunctiva normal CV: normal rate Chest: normal respiratory effort Abdomen: soft, nondistended, mild TTP most in the LLQ, no rebound or gaurding Extremities: no clubbing, cyanosis, or edema, otherwise grossly normal, warm, and dry Skin: warm, dry Neuro: alert, oriented LABS: Labs reviewed as indicated below: CBC Lab Results Component Value Date/Time WBC 10.49 06/08/2022 08:28 AM WBC 11.86 (H) 05/27/2020 04:51 PM HGB 9.7 (L) 06/08/2022 08:28 AM HGB 11.1 (A) 05/28/2021 12:00 AM HGB 11.4 (L) 05/27/2020 04:51 PM HCT 32.6 (L) 06/08/2022 08:28 AM HCT 37.5 05/27/2020 04:51 PM PLT 438 (H) 06/08/2022 08:28 AM PLT 435 (H) 05/27/2020 04:51 PM BMP Lab Results Component Value Date/Time NA 139 06/08/2022 08:27 AM NA 140 05/27/2020 04:51 PM POTASSIUM 3.9 06/08/2022 08:27 AM POTASSIUM 4.1 06/12/2021 12:00 AM POTASSIUM 4.0 05/27/2020 04:51 PM CL 102 06/08/2022 08:27 AM CL 97 (L) 05/27/2020 04:51 PM CO2 29 06/08/2022 08:27 AM CO2 32 05/27/2020 04:51 PM BUN 10 06/08/2022 08:27 AM BUN 12 05/27/2020 04:51 PM CREAT 0.9 06/08/2022 08:27 AM CREAT 1.08 (A) 06/12/2021 12:00 AM CREAT 1.0 05/27/2020 04:51 PM CA, MG, PHOS Lab Results Component Value Date/Time CA 9.0 06/08/2022 08:27 AM CA 10.0 05/27/2020 04:51 PM MG 2.0 12/13/2020 05:46 AM MG 1.9 07/27/2018 11:32 AM PHOSPHORUS 3.4 02/19/2022 04:04 PM PHOSPHORUS 3.8 03/22/2019 12:00 AM IMAGING: reviewed IMPRESSION: Principal Problem: Diverticulitis of colon Active Problems: Type 2 diabetes mellitus with hemoglobin A1c goal of less than 7.5% ([facility]) HECTOR (generalized anxiety disorder) COPD, group B, 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 ([facility]) Gastro-esophageal reflux disease without esophagitis Paroxysmal atrial fibrillation ([facility]) Chronic systolic heart failure ([facility]) Chronic kidney disease, stage 3a ([facility]) Type 2 diabetes mellitus with stage 3a chronic kidney disease, without long-term current use of insulin ([facility]) Resolved Problems: * No resolved hospital problems. * I have examined the patient and consistent with the dietitian's findings found malnutrition presentof Severe (06/07/22 1500) degree. This is consistent with such due to Inadequate energy intake;Weight loss (06/07/22 1500). I have also reviewed and agree with the dietitian's plan of care which include . Nina Harrington is a 81 year old female with complicated diverticulitis with attempted nonoperative management PLAN: Antibiotics: Cipro/flagyl PO Diet: LFD DVT/PE ppx: lovenox Analgesia: tylenol, oxycodone 5/10mg prn Nausea: zofran Labs: now and daily Drains/Lines: PIVs CKD III - stable Home Medications: Restart: sertraline, inhalers, methimazole, statin, metoprolol replace succinate with tartrate). 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 Disposition: med surg, dc tomorrow Associated attestation - Cristiane Fitch MD - 06/09/2022 9:21 AM EDT I have discussed the patient's management with the medical trainee and agree with the note. Please refer to the documented findings and plan of care. The patient's service consisted of a service. I was readily available for immediate [id number] consultation and assistance. I have reviewed the medical history, physical examination, diagnosis, and plan. WBC down to 9 today. Cristiane Fitch MD [address] [place] [id number] 06/09/2022 * Steven Medrano MD - 06/08/2022 5:42 AM EDT PROGRESS NOTE - Trauma/Emergency Surgery [facility] [address] Name: Nina Harrington Location: [facility] B643/A Date: 06/08/2022 Time: 5:43 AM DIAGNOSIS: Complicated diverticulitis, colovaginal fistula SUBJECTIVE: NAEON, VSS, afebrile. This AM, pain is better this morning compared to admission but about the same to yesterday - LLQ pain. Abdominal pain not getting worse. Tolerating low fiber diet. Voiding a lot of air. OBJECTIVE: Most Recent Vital Signs: BP: 107 mmHg/50 mmHg (06/08/22 035) Pulse: 66 (06/08/22349) Temp: 36 C (06/08/22349) Resp: 18 (06/08/22349) SpO2: 97 % (06/08/22349) Vital Signs Last 24 Hours: Systolic BP: Most Recent Systolic BP Av.7 mmHg Min: 92 mmHg Max: 116 mmHg Temperature: Most Recent Temperature Av.2 C Min: 35.89 C Max: 36.89 C Pulse: Pulse Av.8 Min: 66 Max: 94 Respirations: Resp Av.7 Min: 14 Max: 18 SpO2: SpO2 Av.2 % Min: 96 % Max: 100 % Intake/Output Summary (Last 24 hours) at 06/08/2022 0543 Last data filed at 06/08/2022 0338 Gross per 24 hour Intake 1317 ml Output 1525 ml Net -208 ml Physical Exam: Constitutional: no acute distress HEENT: normocephalic, atraumatic Eyes: sclera and conjunctiva normal CV: normal rate Chest: normal respiratory effort Abdomen: soft, nondistended, mild TTP most in the LLQ, no rebound or gaurding Extremities: no clubbing, cyanosis, or edema, otherwise grossly normal, warm, and dry Skin: warm, dry Neuro: alert, oriented LABS: Labs reviewed as indicated below: CBC Lab Results Component Value Date/Time WBC 9.21 06/07/2022 06:28 AM WBC 11.86 (H) 05/27/2020 04:51 PM HGB 8.8 (L) 06/07/2022 06:28 AM HGB 11.1 (A) 05/28/2021 12:00 AM HGB 11.4 (L) 05/27/2020 04:51 PM HCT 29.1 (L) 06/07/2022 06:28 AM HCT 37.5 05/27/2020 04:51 PM PLT 426 (H) 06/07/2022 06:28 AM PLT 435 (H) 05/27/2020 04:51 PM BMP Lab Results Component Value Date/Time NA 138 06/07/2022 06:28 AM NA 140 05/27/2020 04:51 PM POTASSIUM 3.5 06/07/2022 06:28 AM POTASSIUM 4.1 06/12/2021 12:00 AM POTASSIUM 4.0 05/27/2020 04:51 PM CL 101 06/07/2022 06:28 AM CL 97 (L) 05/27/2020 04:51 PM CO2 30 06/07/2022 06:28 AM CO2 32 05/27/2020 04:51 PM BUN 12 06/07/2022 06:28 AM BUN 12 05/27/2020 04:51 PM CREAT 1.2 (H) 06/07/2022 06:28 AM CREAT 1.08 (A) 06/12/2021 12:00 AM CREAT 1.0 05/27/2020 04:51 PM CA, MG, PHOS Lab Results Component Value Date/Time CA 8.5 06/07/2022 06:28 AM CA 10.0 05/27/2020 04:51 PM MG 2.0 12/13/2020 05:46 AM MG 1.9 07/27/2018 11:32 AM PHOSPHORUS 3.4 02/19/2022 04:04 PM PHOSPHORUS 3.8 03/22/2019 12:00 AM IMAGING: reviewed IMPRESSION: Principal Problem: Diverticulitis of colon Active Problems: Type 2 diabetes mellitus with hemoglobin A1c goal of less than 7.5% ([facility]) HECTOR (generalized anxiety disorder) COPD, group B, 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 ([facility]) Gastro-esophageal reflux disease without esophagitis Paroxysmal atrial fibrillation ([facility]) Chronic systolic heart failure ([facility]) Chronic kidney disease, stage 3a ([facility]) Type 2 diabetes mellitus with stage 3a chronic kidney disease, without long-term current use of insulin ([facility]) Resolved Problems: * No resolved hospital problems. * I have examined the patient and consistent with the dietitian's findings found malnutrition presentof Severe (06/07/22 1500) degree. This is consistent with such due to Inadequate energy intake;Weight loss (06/07/22 1500). I have also reviewed and agree with the dietitian's plan of care which include . Nina Harrington is a 81 year old female with complicated diverticulitis with attempted nonoperative management PLAN: Antibiotics: cipro/flagyl Diet: LFD IVF: none DVT/PE ppx: lovenox Analgesia: tylenol, oxycodone 5/10mg prn GI ppx: none indicated Nausea: zofran Bowel Regimen: hold Sánchez: none Labs: now and daily Drains/Lines: PIVs CKD III - stable Home Medications: Restart: sertraline, inhalers, methimazole, statin, metoprolol replace succinate with tartrate). 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 Disposition: med surg, possible dc tomorrow Will be examined and discussed with Dr. Marcela Mabry MD 06/08/2022 5:44 AM Patient seen & independently examined. Note above by Dr. Mabry reviewed & agree with goetz components, assessment, plan. In sum: 81yo F w/ CV fistula & diverticular phlegmon (not drainable). Continues slow trend toward improvement. --Continue nonOp for CV/diverticulitis. --Potentially transition to PO tomorrow. Kvng Medrano MD / for Cristiane Fitch MD Associated attestation - Cristiane Fitch MD - 06/08/2022 8:50 AM EDT I have discussed the patient's management with the medical trainee and agree with the note. Please refer to the documented findings and plan of care. The patient's service consisted of a service. I was readily available for immediate [id number] consultation and assistance. I have reviewed the medical history, physical examination, diagnosis, and plan. At this point will continue with the oral ciprofloxacin and Flagyl and see how the next day or so goes. We may need to escalate to Augmentin or different antibiotic to facilitate improvement. Cristiane Fitch MD [address] [place] [id number] 06/08/2022 * Geri Mendoza MD - 06/07/2022 7:34 AM EDT PROGRESS NOTE - Trauma/Emergency Surgery [facility] [facility] [address] Name: Nina Harrington Location: [facility] B6/ Date: 06/07/2022 Time: 7:34 AM DIAGNOSIS: Complicated diverticulitis SUBJECTIVE: No acute issues overnight. Abdominal pain not getting worse. Tolerating low fiber diet.Systolic in the 80s but asymptomatic. OBJECTIVE: Most Recent Vital Signs: BP: 87 mmHg/49 mmHg (06/06/222251) Pulse: 74 (06/06/222251) Temp: 36.22 C (06/06/222251) Resp: 15 (06/06/222251) SpO2: 97 % (06/06/222251) Vital Signs Last 24 Hours: Systolic BP: Most Recent Systolic BP Av mmHg Min: 83 mmHg Max: 108 mmHg Temperature: Most Recent Temperature Av.3 C Min: 36.22 C Max: 36.5 C Pulse: Pulse Av.3 Min: 65 Max: 75 Respirations: Resp Av Min: 15 Max: 20 SpO2: SpO2 Av.2 % Min: 94 % Max: 100 % Intake/Output Summary (Last 24 hours) at 06/07/2022 0734 Last data filed at 06/07/2022 0733 Gross per 24 hour Intake 1027 ml Output 1200 ml Net -173 ml Physical Exam: Constitutional: no acute distress HEENT: normocephalic, atraumatic Eyes: sclera and conjunctiva normal CV: normal rate Chest: normal respiratory effort Abdomen: soft, nondistended, mild TTP, no rebound or gaurding Extremities: no clubbing, cyanosis, or edema, otherwise grossly normal, warm, and dry Skin: warm, dry Neuro: alert, oriented LABS: Labs reviewed as indicated below: CBC Lab Results Component Value Date/Time WBC 9.21 06/07/2022 06:28 AM WBC 11.86 (H) 05/27/2020 04:51 PM HGB 8.8 (L) 06/07/2022 06:28 AM HGB 11.1 (A) 05/28/2021 12:00 AM HGB 11.4 (L) 05/27/2020 04:51 PM HCT 29.1 (L) 06/07/2022 06:28 AM HCT 37.5 05/27/2020 04:51 PM PLT 426 (H) 06/07/2022 06:28 AM PLT 435 (H) 05/27/2020 04:51 PM BMP Lab Results Component Value Date/Time NA 138 06/07/2022 06:28 AM NA 140 05/27/2020 04:51 PM POTASSIUM 3.5 06/07/2022 06:28 AM POTASSIUM 4.1 06/12/2021 12:00 AM POTASSIUM 4.0 05/27/2020 04:51 PM CL 101 06/07/2022 06:28 AM CL 97 (L) 05/27/2020 04:51 PM CO2 30 06/07/2022 06:28 AM CO2 32 05/27/2020 04:51 PM BUN 12 06/07/2022 06:28 AM BUN 12 05/27/2020 04:51 PM CREAT 1.2 (H) 06/07/2022 06:28 AM CREAT 1.08 (A) 06/12/2021 12:00 AM CREAT 1.0 05/27/2020 04:51 PM CA, MG, PHOS Lab Results Component Value Date/Time CA 8.5 06/07/2022 06:28 AM CA 10.0 05/27/2020 04:51 PM MG 2.0 12/13/2020 05:46 AM MG 1.9 07/27/2018 11:32 AM PHOSPHORUS 3.4 02/19/2022 04:04 PM PHOSPHORUS 3.8 03/22/2019 12:00 AM IMAGING: reviewed IMPRESSION: Principal Problem: Diverticulitis of colon Active Problems: Type 2 diabetes mellitus with hemoglobin A1c goal of less than 7.5% ([facility]) HECTOR (generalized anxiety disorder) COPD, group B, 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 ([facility]) Gastro-esophageal reflux disease without esophagitis Paroxysmal atrial fibrillation ([facility]) Chronic systolic heart failure ([facility]) Chronic kidney disease, stage 3a ([facility]) Type 2 diabetes mellitus with stage 3a chronic kidney disease, without long-term current use of insulin ([facility]) Resolved Problems: * No resolved hospital problems. * Nina Harrington is a 81 year old female with complicated diverticulitis with attempted nonoperative management for 7 days PLAN: Antibiotics:zosyn Diet:try LFD IVF:stop DVT/PE ppx:lovenox Analgesia:tylenol, oxycodone 5/10mg prn GI ppx:none indicated Nausea:zofran Bowel Regimen:hold Sánchez:none Labs:now and daily Drains/Lines:PIVs CKD III - stable Home Medications: Restart: sertraline, inhalers, methimazole, statin, metoprolol replace succinate with tartrate). 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 Disposition: med surg, possible discharge in the next 24-48 hours Will be examined and discussed with Dr. Little Mendoza MD 06/07/2022 7:52 AM Associated attestation - Cristiane Fitch MD - 06/07/2022 5:58 PM EDT I have discussed the patient's management with the medical trainee and agree with the note. Please refer to the documented findings and plan of care. The patient's service consisted of an evaluation.I have seen and evaluated the patient. Seems to a little bit better today. Does endorsed passing gas when she urinates indicating a colovesicular fistula. Ultimately will she will need surgery but apparently has discussed this with other surgeons an outside hospital. We will continue to manage her non operatively in the acute setting and see her back as she desires in the office. We will do this 24 hours with p.o. antibiotics and see how she does tomorrow possible discharge in the next day or so. Cristiane Fitch MD [address] [place] [phone] 06/07/2022 documented in this encounter H&P Notes * Geri Mendoza MD - 06/05/2022 3:35 PM EDT HISTORY & PHYSICAL EXAM - Colorectal Surgery [facility] [address] Name: Nina Harrington Location: [facility] B643/A Date: 06/06/2022 Time: 3:13 PM PRESENTING PROBLEM: Complicated diverticulitis HISTORY OF PRESENT ILLNESS: Nina Harrington is a 81 year old female who presents with complicated diverticulitis. Patient reportsshe has had left sided abdominal pain on and off for years and has had several episodes of diverticulitis. She initially presented to [facility] on Friday (05/31) after she saw her PCP on and had a CT scan ordered due to LLQ pain along with initiation of antibiotics for presumed diverticulitis. The CT came back Friday and showed an abscess and she was sent to the ED. She was notedto have WBC 16 and was started on zosyn and kept on clear liquid diet. She also reports noticing some gas in her urine since 06/01. 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 She was transferred to [facility] due to failure to significantly improve. This morning her WBC was 8. Today she reports she's not in much pain now but was in a lot of pain when first admitted at [facility]. Reports history of diverticulitis. Denies fevers, chills, or dysuria, hematuria, or noticing sediment in urine. Endorses flatus. Last colonoscopy 2019 with diverticulosis and a 5mm polyp. Does also have a history of multiple diverticular bleeds requiring transfusion which is why she is not on coumadin anymore. Relevant Medical History: heart failure (last cath and echo 12/2020 with EF 35%, non-occlusive disease), Afib with Watchman, asthma and COPD on 2L NC daytime and 4L NC night, DM II on oral antihyperglycemics, HTN, hyperthyroidism Relevant Surgical History: Prior tubal ligation, open cholecystectomy, and epigastric incisional hernia repair with mesh. Last colonoscopy 2019. 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: never smoked, lives at home alone with daughter next door Anticoagulation/Antiplatelet status: asa 81mg HOSPITAL PROBLEM LIST: Active Problems: * No active hospital problems. * POA = Present On Admission PAST MEDICAL HISTORY: Past Medical History: Diagnosis Date ACEI/ARB contraindicated Asthma Carpal tunnel syndrome DM type 2, goal: symptom mgmt (HCC) Generalized osteoarthritis HTN, goal below 140/90 Mixed dyslipidemia PAST SURGICAL HISTORY: Past Surgical History: Procedure Laterality Date APPENDECTOMY W/OTHER PROCEDURE 1960 when removed gall bladder COLONOSCOPY, DIAGNOSTIC (RECTUM) 05/29/2016 poor prep, diverticulosis/[facility] COLONOSCOPY, DIAGNOSTIC (RECTUM) 06/05/2017 diverticulosis, repeat 3 yrs/[facility] COLONOSCOPY, DIAGNOSTIC (RECTUM) 02/28/2018 adenomatous polyps, diverticulosis, repeat 3 yrs / [facility] COLONOSCOPY, DIAGNOSTIC (RECTUM) 05/08/2020 inflammatory tissue on bx, diverticulosis / [facility] COLONOSCOPY, W/BIOPSY 03/20/2012 hyperplastic polyps rpt 3 years. EGD, FLEXIBLE, DIAGNOSTIC 04/29/2014 normal/[facility] EGD, FLEXIBLE, DIAGNOSTIC 05/29/2016 fundic submucosal mass/[facility] EGD, FLEXIBLE, DIAGNOSTIC 05/08/2020 normal / [facility] EGD, FLEXIBLE,W/ENDOSCOPIC US 11/08/2016 inflammatory changes, stomach lesion, repeat EUS 1.5 yrs/[facility] EGD, FLEXIBLE,W/ENDOSCOPIC US 05/01/2018 stromal cell (smooth muscle) neoplasm, CBD dilation, repeat 2 yrs (needs OV prior)/[facility] EGD, FLEXIBLE,W/ENDOSCOPIC US 09/01/2020 leiomyoma / [facility] INCISIONAL HERNIA REPAIR, LAP, REDUCIBLE 09/29/2012 Repair of incarcerated supraumbilical (incisional) hernia with [facility] mesh 09/29/12 LIGATE/CUT OVIDUCT(S) REMOVAL OF TONSILS, AGE 12+ age 11 REMOVE GALLBLADDER 1960 SIGMOIDOSCOPY, DIAGNOSTIC 04/29/2014 stool in rectum/[facility] SMALL BOWEL ENDOSCOPY, REMOVE FOREIGN BODY mesh from prior hernia surgery, wrapped around small bowel. small bowel surgery MEDICATIONS: Prior to Admission medications Medication Sig Last Dose Discont. HYDROcodone-Acetaminophen 5-325 MG Oral Tablet Take by mouth 1 Tablet every 6 hours as needed for Pain, Mild. predniSONE 50 MG Oral Tablet (Deltasone) Take 1 tab 13 hrs before scan, take 1 tab 7 hrs before scan, take 1 tab 1 hr before scan with Benadryl Promethazine HCl 25 MG Oral Tablet (Phenergan) TAKE 1 TABLET BY MOUTH EVERY 6 HOURS NEEDED FOR NAUSEA Zafirlukast 20 MG Oral Tablet (Accolate) TAKE 1 TABLET BY MOUTH EVERY DAY Ferrous Sulfate 325 (65 Fe) MG Oral Tablet (Feosol) Take by mouth 1 Tablet in the morning. Dicyclomine HCl 20 MG Oral Tablet (Bentyl) TAKE 1 TABLET BY MOUTH EVERY DAY OneToZumigo Verio In Vitro Strip (Glucose Blood) Checks blood sugar 3 times a day. E11.9 DX Sertraline HCl 25 MG Oral Tablet (Zoloft) Take by mouth 1 Tablet in the morning. Glimepiride 2 MG Oral Tablet (Amaryl) TAKE [...] Tablet in the morning. Furosemide 40 MG Oral Tablet (Lasix) Take 1.5 Tablets by mouth 2 times a day. Spiriva Respimat 1.25 MCG/ACT Inhalation Aerosol Solution (Tiotropium Brantley Monohydrate) Inhale by mouth. Metoprolol Succinate ER 25 MG Oral Tablet Extended Release 24 Hour (toPROL XL) Take 1 tab in the morning and 1/2 tab in the evening. Klor-Con M20 20 MEQ Oral Tablet Extended Release (Potassium Chloride Annalisa ER) TAKE 1 TABLET BY MOUTH EVERY DAY Omeprazole 20 MG Oral Capsule Delayed Release (PriLOSEC) TAKE 1 CAPSULE BY MOUTH TWICE A DAY Aspirin 81 MG Oral Tablet Delayed Release Take 81 mg by mouth daily. CareSens N Glucose Test In Vitro Strip (Glucose Blood) Test as directed. Tests three times daily [employer] Voice System Device Use as directed. Tests three times daily/E11.9 ondansetron ODT (ZOFRAN) [address] 8 mg on tongue every 8 hours as needed for Nausea. dissolve on tongue. Lancets MISC Use as directed. USE TO TEST BLOOD SUGAR 3 TIMES A DAY FOR DIAGNOSIS CODE OF E11.9 Albuterol Sulfate (VENTOLIN HFA) 108 (90 Base) [...] 1000 UNITS PO TABS one tablet daily FAMILY HISTORY: Family History Problem Relation Age [...] Topics Alcohol use: No Drug use: No ALLERGIES: Diovan [valsartan], Enalapril, Escitalopram oxalate, Iodinated diagnostic agents, Iodine, Metoprolol tartrate, [place] oil-black currant-vit e, Verapamil, and Wellbutrin [bupropion hcl] ROS: I have performed a review of symptoms, including: Consitutional, Eyes, ENT, Cardiovascular, Respiratory, Gastrointestinal, Musculoskeletal, Skin, Neurological, & Hematologic/Lymphatic. All positives noted in HPI, otherwise negative. PHYSICAL EXAMINATION: Most Recent Vital Signs: BP: 108 mmHg/62 mmHg (06/06/22 1240) Pulse: 65 (06/06/22 1240) Temp: 36.5 C (06/06/22 1240) Resp: 20 (06/06/22 1240) SpO2: 100 % (06/06/22 1240) Vital Signs Over Last 24 Hours: Systolic BP: Most Recent Systolic BP Av mmHg Min: 108 mmHg Max: 108 mmHg Temperature: Most Recent Temperature Av.5 C Min: 36.5 C Max: 36.5 C Pulse: Pulse Av Min: 65 Max: 65 Respirations: Resp Av Min: 20 Max: 20 SpO2: SpO2 Av % Min: 100 % Max: 100 % Physical Exam: Constitutional: alert, no acute distress HEENT: normocephalic, atraumatic, on 2L NC, conjunctiva non-injected, sclera white Neck: supple, trachea midline Lungs: normal respiratory effort Heart: regular rate & rhythm Abdomen: soft, non-distended, no rebound or guarding, minimal tenderness to palpation in LLQ and suprapubic regions, well-healed scars consistent with prior abdominal history Back: no CVA tenderness Extremities: no joint deformities, effusion, or inflammation, no edema, no skin discoloration Neuro: alert, motor & sensation grossly intact Skin: no obvious rashes or significant lesions, no jaundice : Deferred Psych: normal mood and affect CBC Lab Results Component Value Date/Time WBC 15.13 (H) 05/13/2022 02:23 PM WBC 11.86 (H) 05/27/2020 04:51 PM HGB 10.1 (L) 05/13/2022 02:23 PM HGB 11.1 (A) 05/28/2021 12:00 AM HGB 11.4 (L) 05/27/2020 04:51 PM HCT 32.9 (L) 05/13/2022 02:23 PM HCT 37.5 05/27/2020 04:51 PM PLT 480 (H) 05/13/2022 02:23 PM PLT 435 (H) 05/27/2020 04:51 PM BMP Lab Results Component Value Date/Time NA 136 05/13/2022 02:23 PM NA 140 05/27/2020 04:51 PM POTASSIUM 4.9 05/13/2022 02:23 PM POTASSIUM 4.1 06/12/2021 12:00 AM POTASSIUM 4.0 05/27/2020 04:51 PM CL 99 05/13/2022 02:23 PM CL 97 (L) 05/27/2020 04:51 PM CO2 28 05/13/2022 02:23 PM CO2 32 05/27/2020 04:51 PM BUN 19 05/13/2022 02:23 PM BUN 12 05/27/2020 04:51 PM CREAT 1.1 (H) 05/13/2022 02:23 PM CREAT 1.08 (A) 06/12/2021 12:00 AM CREAT 1.0 05/27/2020 04:51 PM CA 9.3 05/13/2022 02:23 PM CA 10.0 05/27/2020 04:51 PM Lactate No results found for: LAC Ca, Mg, Phos Lab Results Component Value Date/Time CA 9.3 05/13/2022 02:23 PM CA 10.0 05/27/2020 04:51 PM MG 2.0 12/13/2020 05:46 AM MG 1.9 07/27/2018 11:32 AM PHOSPHORUS 3.4 02/19/2022 04:04 PM PHOSPHORUS 3.8 03/22/2019 12:00 AM Hepatic Function Panel Lab Results Component Value Date/Time TBIL 0.3 05/13/2022 02:23 PM TBIL 0.3 05/27/2020 04:51 PM DBIL <0.2 08/07/2021 09:05 AM DBIL <0.2 07/27/2018 11:32 AM ALKP 107 05/13/2022 02:23 PM ALKP 106 05/27/2020 04:51 PM AST 12 05/13/2022 02:23 PM AST 20 05/27/2020 04:51 PM ALT 6 (L) 05/13/2022 02:23 PM ALT 15 05/27/2020 04:51 PM PROT 6.5 05/13/2022 02:23 PM PROT 7.7 05/27/2020 04:51 PM LIPA 10 (L) 05/27/2020 04:51 PM Coags Lab Results Component Value Date/Time INR 0.95 03/02/2013 11:36 AM IMAGING: CTAP 06/04 with small pericolonic abscesses, sigmoid thickening and inflammation consistent with complicated diverticulitis. Air in the bladder. Colonoscopy 2019 Findings: - Multiple small and large-mouthed diverticula were found in the sigmoid colon and descending colon. - A 5 mm polyp was found at 30 cm proximal to the anus. The polyp was sessile. The polyp was removed with a cold snare. Resection and retrieval were complete. Verification of patient identification for the specimen was done by the physician and nurse using the patient's name and medical record number. Estimated blood loss was minimal. - The exam was otherwise without abnormality on direct and retroflexion views. IMPRESSION and PLAN: Nina Harrington is a 81 year old female with complicated diverticulitis with attempted nonoperative management for 7 days, now presenting in transfer. Plan Antibiotics: zosyn Diet:try LFD tonight IVF: isolyte 100/hr DVT/PE ppx: lovenox Analgesia: tylenol, oxycodone 5/10mg prn GI ppx: none indicated Nausea: zofran Bowel Regimen: hold Sánchez: none Labs: now and daily Drains/Lines: PIVs Home Medications: Restart: sertraline, inhalers, methimazole, statin, metoprolol replace succinate with tartrate) Hold: Bentyl, glimepiride (replace with SSI), lsiinopril, lasix, spironolactone, asa 81mg Consults: none Disposition: med surg Patient examined & discussed with Dr. Claudio Mendoza MD 06/06/2022 3:22 PM REFERRING PHYSICIAN: 1. Frank Abdi MD PRIMARY CARE PHYSICIAN: Marcela Pinto MD Associated attestation - Dionte Snyder MD - 06/07/2022 2:32 PM EDT I have discussed the patient's management with the medical trainee and agree with the note. Please refer to the documented findings and plan of care. The patient's service consisted of an evaluation.This is a late entry for 06/06/2022. I have seen and evaluated the patient. documented in this encounter Consult Notes * Jared Panda, OTR/L - 06/07/2022 3:00 PM EDT Associated Order(s): ADULT OCCUPATIONAL THERAPY CONSULT IP GENERAL EVALUATION - Occupational Therapy [facility] [id number] Name: Nina Harrington Location: [facility] B643/[id number] Date: 06/07/2022 Time: 3:00 PM Nina Harrington is a 81 year old female. Per [facility] Note: HISTORY OF PRESENT ILLNESS: "Nina Harrington is a 81 year old female who presents with complicated diverticulitis. Patient reports she has had left sided abdominal pain on and off for years and has hadseveral episodes of diverticulitis. She initially presented to [facility] on Friday (05/13) after she saw her PCP on 05/[address] scan ordered due to LLQ pain along with initiation ofantibiotics for presumed diverticulitis. The CT came back Friday and showed an abscess and she was sent to the ED. She was noted to have WBC 16 and was started on zosyn and kept on clear liquid diet.She also reports noticing some gas in her urine since 06/01. 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 She was transferred to [facility] due to failure to significantly improve. This morning her WBC was 8. Today she reports she's not in much pain now but was in a lot of pain when first admitted at [facility]. Reports history of diverticulitis. Denies fevers, chills, or dysuria, hematuria, or noticing sediment in urine. Endorses flatus. Last colonoscopy 2020 with diverticulosis and a 5mm polyp. Does also have a history of multiple diverticular bleeds requiring transfusion which is why she is not on coumadin anymore." Patient Status: Inpatient Insurance: Payor: [employer] MEDICARE ADVANTAGE Plan: [employer]TRA MEDIC[employer] ADVANTAGE Product Type: *No Product type* Payor: [employer] [place] Plan: [employer] [facility] Product Type: HMO Patient Seen: at bedside, nursing cleared patient for therapy Patient Identified By: Name, ID Band and Date Diagnosis: diverticuluitis of colon (06/07/221432) Status of treatment: Evaluation completed (06/07/221432) Orders: OT evaluation and treatment (06/07/221432) Weight Bearing Status: Weight bearing as tolerated (06/07/221432) Precautions: Falls;Oxygen;Safety (06/07/221432) Total Treatment Time: 15 (06/07/221432) Past Medical History: Past Medical History: Diagnosis Date ACEI/ARB contraindicated Asthma Carpal tunnel syndrome DM type 2, goal: symptom mgmt (HCC) Generalized osteoarthritis HTN, goal below 140/90 Mixed dyslipidemia Past Surgical History: Past Surgical History: Procedure Laterality Date APPENDECTOMY W/OTHER PROCEDURE 1960 when removed gall bladder COLONOSCOPY, DIAGNOSTIC (RECTUM) [facility], [facility] 06/05/2017 diverticulosis, repeat 3 yrs/[facility] COLONOSCOPY, DIAGNOSTIC (RECTUM) 02/28/2018 adenomatous polyps, diverticulosis, repeat 3 yrs / [facility] COLONOSCOPY, DIAGNOSTIC (RECTUM) 05/08/2020 inflammatory tissue on bx, diverticulosis / [facility] COLONOSCOPY, W/BIOPSY 03/20/2012 hyperplastic polyps rpt 3 years. EGD, FLEXIBLE, DIAGNOSTIC 04/29/2014 normal/inpt [facility] EGD, FLEXIBLE, DIAGNOSTIC 05/29/2016 [facility], [facility]ST[facility] 05/08/2020 normal / [facility] EGD, FLEXIBLE,W/ENDOSCOPIC US 11/08/2016 inflammatory changes, stomach lesion, repeat EUS 1.5 yrs/[facility] EGD, FLEXIBLE,W/ENDOSCOPIC US 05/01/2018 stromal cell (smooth muscle) neoplasm, CBD dilation, repeat 2 yrs (needs OV prior)/[facility] EGD, FLEXIBLE,W/ENDOSCOPIC US 09/01/2020 leiomyoma / [facility] INCISIONAL HERNIA REPAIR, LAP, REDUCIBLE 09/29/2012 Repair of incarcerated supraumbilical (incisional) hernia with Atrium mesh 09/29/12 LIGATE/CUT OVIDUCT(S) REMOVAL OF TONSILS, AGE 12+ age 11 REMOVE GALLBLADDER 1960 SIGMOIDOSCOPY, DIAGNOSTIC 04/29/2014 stool in rectum/inpt [facility] SMALL BOWEL ENDOSCOPY, REMOVE FOREIGN BODY mesh from prior hernia surgery, wrapped around small bowel. small bowel surgery 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/Disposition Lives with: Alone (06/07/221432) Assistance available: Yes (daughter nearby) (06/07/221432) Dwelling type: Single story home (06/07/221432) Entry steps: 4 (06/07/221432) Inside steps: None (06/07/221432) Bedroom location: 1st floor (06/07/221432) Bath location: 1st floor full bath (06/07/221432) Prior Level of Function Reported by: Patient (06/07/221432) Ambulation: Ambulatory without device (06/07/221432) Grooming: Independent (06/07/221432) Bathing: Independent (06/07/221432) Dressing: Independent (06/07/221432) Feeding: Independent (06/07/221432) Toileting: Independent (06/07/221432) Shopping: Assistance (06/07/221432) Durable Medical Equipment at home: Shower chair;Rolling walker;Straight cane (06/07/221432) Pain: Patient has complaints of pain. Pain located at abdomen and back, 03/22 this date. Observations Consciousness: Alert (06/07/221432) Orientation: Oriented times 4 (06/07/221432) Psychosocial: Patient can communicate basic needs;Patient can converse in a social setting (06/07/221432) Sitting posture: Forward head;Rounded shoulders (06/07/221432) Standing posture: Forward head;Rounded shoulders (06/07/221432) Safety awareness: The Patient verbalizes insight of current deficits.;Needs cueing supervision. (06/07/221432) Other Findings Endurance: Fair (06/07/221432) Light touch sensation: LUE;RUE;Intact (06/07/221432) Tone: LUE;RUE;Normal tone (06/07/221432) Edema: No edema noted (06/07/221432) Current Functional Status: Bilateral Upper Extremity Range of Motion: WFL, except (06/07/221432) RUE: (~90 degrees shoulder flexion) (06/07/221432) Strength Assessment: Deficits noted (06/07/221432) LUE: Shoulder;3+/5;Elbow;Grasp;4-/5 (06/07/221432) RUE: Shoulder;3-/5;Elbow;Grasp;4-/5 (06/07/221432) Self Care Able to provide self care: Yes (06/07/221432) Dressing Upper Body: Minimal Assistance (simulated) (06/07/221432) Lower Body: Moderate Assistance (to don slipper socks) (06/07/221432) Functional Ambulation Assistive Device: No device (HR CLERK) (06/07/221432) Distance in feet:: 3 (06/07/221432) Level of Assistance: Contact Guard (06/07/221432) Bed Mobility Supine-Sit: Minimal Assistance (06/07/221432) OT Transfers Sit-Stand: Contact Guard (06/07/221432) Stand-Sit: Contact Guard (06/07/221432) Bed-Chair: Contact Guard (06/07/221432) Balance Sit (Static): Fair (06/07/221432) Sit (Dynamic): Fair (06/07/221432) Stand (Static): Fair (-) (06/07/221432) Stand (Dynamic): Fair (-) (06/07/221432) Alarm Status Patient positioned in: Chair (06/07/221432) With: Call harrison in reach (no alarm on bed upon arrival) (06/07/221432) Patient and Family Goals: to get well and to return home Patient Education Education Topic: Role of OT;Plan of care goals (06/07/221432) Review of Precautions: Safety;Fall (06/07/221432) Method of Education: Verbalized to patient (06/07/221432) Education Provided to: Patient (06/07/221432) Response to Education: Receptive and agreeable to education (06/07/221432) Barriers to learning: Medical status (06/07/221432) Preferred learning method: Combination (06/07/221432) Treatment Provided: Evaluation Moderate Complexity 15 minutes - 24065: Patient was cooperative and pleasant during treatment session. Moderate complexity evaluation performed and 3-5 activity limitations were identified, including ADL deficit, functional mobility deficit, bed mobility deficit, cognitive deficit, decreased strength, decreased endurance and impaired balance. Minimal or moderate modification of the functional task was necessary to complete the evaluation. Deficits Requiring O.T. Treatment: Deficits requiring O.T. treatment needs: ADL/self-care;Balance;Endurance;Functional mobility;Safety;Upper extremity strength;Weakness (06/07/221432) Assessment: Patient was admitted to [facility] on [place]22 for diverticulitis of colon. Patient was cooperative and agreeable to participate in OT evaluation this date. Patient reported that prior to admission she was independent with ADLs and mobility. Pt lives alone but has daughter nearby to help if needed. On time of evaluation, pt completed bed mobility with Diamante, sit to stand transfers and ambulation with CG. Pt ambulated 3ft to chair with HR CLERK. Pt demonstrates limited active ROM of RUE, but states it has been an issue for a while now; active ROM of LUE is WFL. Pt required Diamante-ModA for dressing tasks this session. Currently, due to medical status patient is presenting with deficits in ADLs and functional mobility, as well as decreased strength, decreased endurance, decreased balance and safety. Patient would benefit from continued OT services to improve independence in ADLs and functional mobility. When medically appropriate, please consider rehab at this time with possible home pending progress with therapy goals. Treatment Plan: Safety, Bed mobility training, Functional Ambulation, Transfer training, Upper extremity strengthening, Balance activities, ADL training and Endurance Goals: Demonstrates Self-Care at: UB Bathing: modified independent LB Bathing: modified independent UB Dressing: modified independent LB Dressing: modified independent Grooming: modified independent Toileting: modified independent Demonstrates Bed Mobility at: Supine to sit: modified independent Sit to supine: modified independent Demonstrates balance at: Sitting balance: Fair+ Standing balance: Fair+ Transfers: Sit to Stand: modified independent Stand to Sit: modified independent Toilet: modified independent Functional Ambulation at modified independent with AD PRN Demonstrates endurance at 20-25 minutes to engage in functional OT tasks Increase Strength of B UEs 1/2 muscle grade Goal Time Frame: 8 visits Anticipated Frequency (on eval): 1 to 3 times per week (06/07/22 1433) AM-PAC Help From Another Person Eating Meals: None (06/07/221432) Help From Another Person Taking Care of Personal Grooming: A little (06/07/221432) Help From Another Person To Put On/Take Off Upper Body Clothing: A little (06/07/221432) Help From Another Person To Put On/Take Off Lower Body Clothing: A lot (06/07/221432) Help From Another Person Toileting: A little (06/07/221432) Help From Another Person Bathing: A little (06/07/221432) OT AM-PAC Score: 18 (06/07/221432) OT AM-PAC t-Scale Score: 38.66 (06/07/221432) HLM (Highest Level of Mobility) Goal: Level 6 walk 10 steps or more (06/06/22 1240) A portion of this AM-PAC assessment not scored based on functional assessment; rather clinical decision making utilized based on current findings and/or prior level of function. Please refer to future AM-PAC calculations of functional ability as they become available. * Corinne Berger, PT - 06/07/2022 2:47 PM EDT Associated Order(s): ADULT PHYSICAL THERAPY CONSULT IP GENERAL EVALUATION - Physical Therapy [address] [address] Name: Nina Harrington Location: [facility] B643/A Date: 06/07/2022 Time: 3:15 PM Nina Harrington is a/an 81 year old female. Patient Status: Inpatient Insurance: Payor: [employer] MEDICARE ADVANTAGE Plan: [employer]TRA MEDICARE ADVANTAGE Product Type: *No Product type* Payor: [employer] [place] Plan: [employer] [facility] Product Type: HMO Patient Seen: at bedside, nursing cleared patient for therapy Patient Identified By: Name, ID Band and Date Diagnosis: diverticulitis of colon (06/07/221446) Status of treatment: Evaluation completed (06/07/221446) Orders: PT evaluation and treatment;OOB (06/07/221446) Weight Bearing Status: Weight bearing as tolerated (06/07/221446) Precautions: Alarms;Falls;Safety;Oxygen (06/07/221446) Total Treatment Time--free text: 19 (06/07/221446) Past Medical History: Past Medical History: Diagnosis Date ACEI/ARB contraindicated Asthma Carpal tunnel syndrome DM type 2, goal: symptom mgmt (HCC) Generalized osteoarthritis HTN, goal below 140/90 Mixed dyslipidemia Past Surgical History: Past Surgical History: Procedure Laterality Date APPENDECTOMY W/OTHER PROCEDURE 1960 when removed gall bladder COLONOSCOPY, DIAGNOSTIC (RECTUM) 05/29/2016 poor prep, diverticulosis/[facility] COLONOSCOPY, DIAGNOSTIC (RECTUM) 06/05/2017 diverticulosis, repeat 3 yrs/[facility] COLONOSCOPY, DIAGNOSTIC (RECTUM) 02/28/2018 adenomatous polyps, diverticulosis, repeat 3 yrs / [facility] COLONOSCOPY, DIAGNOSTIC (RECTUM) 05/08/2020 inflammatory tissue on bx, diverticulosis / [facility] COLONOSCOPY, W/BIOPSY 03/20/2012 hyperplastic polyps rpt 3 years. EGD, FLEXIBLE, [facility]ST[facility], [facility], DIAGNOSTIC 05/29/2016 fundic submucosal mass/[facility] EGD, FLEXIBLE, DIAGNOSTIC 05/08/2020 normal / [facility] EGD, FLEXIBLE,W/ENDOSCOPIC US 11/08/2016 inflammatory changes, stomach lesion, repeat EUS 1.5 yrs/[facility] EGD, FLEXIBLE,W/ENDOSCOPIC US 05/01/2018 stromal cell (smooth muscle) neoplasm, CBD dilation, repeat 2 yrs (needs OV prior)/[facility] EGD, FLEXIBLE,W/ENDOSCOPIC US 09/01/2020 leiomyoma / [facility] INCISIONAL HERNIA REPAIR, LAP, REDUCIBLE 09/29/2012 Repair of incarcerated supraumbilical (incisional) hernia with Atrium mesh 09/29/12 LIGATE/CUT OVIDUCT(S) REMOVAL OF TONSILS, AGE 12+ age 11 REMOVE GALLBLADDER 1960 SIGMOIDOSCOPY, DIAGNOSTIC 04/29/2014 stool in rectum/[facility] SMALL BOWEL ENDOSCOPY, REMOVE FOREIGN BODY mesh from prior hernia surgery, wrapped around small bowel. small bowel surgery Subjective: Pt awake in bed, agreeable to PT. 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/Disposition Lives with: Alone (06/07/221446) Assistance available: Yes (06/07/221446) Dwelling type: Single story home (06/07/221446) Entry steps: 4 (06/07/221446) Inside steps: None (06/07/221446) Bedroom location: 1st floor (06/07/221446) Bath location: 1st floor full bath (06/07/221446) Prior Level of Function Reported by: Patient (06/07/221446) Ambulation: Ambulatory without device (06/07/221446) Devices at home: Rolling walker;Straight cane;Shower chair (06/07/221446) Observations Consciousness: Alert (06/07/221446) Orientation: Oriented times 4 (06/07/221446) Psychosocial: Patient can communicate basic needs;Patient can converse in a social setting (06/07/221446) Other Findings: Yes (06/07/221446) Findings: Light touch sensation (06/07/221446) Light Touch Sensation Results: Intact;LLE;RLE (06/07/221446) Sitting Posture: Rounded shoulders;Forward head (06/07/221446) Standing Posture: Rounded shoulders;Forward head (06/07/221446) Pain: Patient has complaints of pain. Pain located in abdomen and back, 6/10, nursing aware. Range of Motion Range of Motion: WFL (06/07/221446) Strength Assessment Strength Assessment: (4/5 B/L LE) (06/07/221446) P.T. Bed Mobility Supine-Sit: Minimal Assistance (06/07/221446) Transfers Sit-Stand: Contact Guard (06/07/221446) Stand-Sit: Contact Guard (06/07/221446) Ambulation: Distance ambulated (feet): 5 ft to chair Assistive Device: No device Assist: Contact Guard Balance Sit (Static): Fair (06/07/221446) Sit (Dynamic): Fair (-) (06/07/221446) Stand (Static): Fair (-) (06/07/221446) Stand (Dynamic): Fair (-) (06/07/221446) Patient and or Family Goal(s): to get well and to return home Patient Education Review of Precautions: Safety;Fall (role of PT) (06/07/221446) Safety Awareness: Patient verbalizes insight of current deficits;Patient demonstrates carryover of insight during functional tasks;Patient can communicate basic needs (06/07/221446) Preferred learning method: Combination (06/07/221446) Barriers to learning: Medical Status (06/07/221446) Method of Education: Verbalized to patient;Patient demonstrated task (06/07/221446) Topic of Education: Safety with mobility, Goals/plan of care and Fall prevention Method of Education: Verbal discussion and explanation provided to pt: verbalized understanding andor agreement of this information and demonstrated the exercise and or task Treatment Provided: Evaluation Moderate Complexity 19 minutes - 05767: Patient was cooperative and pleasant during treatment session. Moderate complexity evaluation performed and 1-2 personal factorsor comorbidities were identified that will impact plan of care, including multiple steps at home, lives alone at home and obesity. Patient presents with limitations in strength, bed mobility, transfers, gait, elevations, balance, endurance and safety, which will impact plan of care. These limitations will be addressed by the goals set for this patient. Alarm Status Patient positioned in: Chair (06/07/221446) With: Call harrison in reach (no alarm was set by nursing) (06/07/221446) Treatment Status: Treatment at bedside (06/07/221446) Goals: Demonstrate Bed Mobility with: modified independent Demonstrate Sit to Stand or Stand Pivot Transfers with: modified independent Demonstrate Ambulation: assistive device: least restrictive AD, distance in feet: 150 ft , modifiedindependent Demonstrate Stairclimbing: Number of steps: 4 and modified independent Increase Strength of: B/L LE by 1/2-1 muscle grade Increase Balance: dynamic standing balance to fair+ Increase Safety: with all functional mobility Time Frame: 7-8 visits Assessment: Pt is 81 year old female presenting with diverticulitis of colon. Pt seen on this date for initial evaluation. Pt reports 6/10 pain in abdomen and back, nursing aware. Prior to admission,pt reports living in 1-story house (4 steps to enter) alone, has daughter who is able to assist if needed. Pt reports ambulating with no assistive device. During session, pt was cooperative. Upon initial evaluation, pt was able to perform bed mobility with Diamante, sit to stand transfers with CG, and ambulated 5 ft to chair with CG and no assistive device. Pt was slightly unsteady with ambulation. Pt declined further mobility at this time due to not feeling well. Following session, pt positioned in chair with alarm and call harrison in reach. Pt presents with deficits in strength, endurance, mobility, ambulation, and balance, all of which are currently negatively impacting pt's quality of life andtolerance to ADLs/IADLs. Pt would continue to benefit from skilled PT services while inpatient at hospital to reach established goals and address deficits. Upon discharge, please consider rehab stay at this time. If pt is able to reach therapy goals as listed above prior to discharge, please consider home with initial supervision as needed. All needs met. Deficits requiring P.T. treatment needs: Safety;Mobility;Balance;Weakness;Endurance;Lower extremitystrength (06/07/221446) Equipment Needs: Equipment needs: (TBD) (06/07/221446) Treatment Plan: Bed mobility training, Transfer training, Gait training, Elevation training, Strengthening exercises: B/L LE, Balance activities and Educate on safety with functional mobility Anticipated Frequency (on eval): 1 to 3 times per week (06/07/221446) AM PAC Score with Stairs: 17 A portion of this AM-PAC assessment not scored based on functional assessment ; rather clinical decision making utilized based on current findings and/or prior level of function. Please refer to future AM-PAC calculations of functional ability as they become available. * Lisa Romo RN - 06/07/2022 11:54 AM EDT Associated Order(s): CARE MANAGEMENT CONSULT IP Chart reviewed. CM met with pt at bedside. Care Management will continue to follow. Please see CM notes under ancillary tab. Thank you. documented in this encounter Nursing Notes * Donna Rios RN - 06/10/2022 12:08 PM EDT NURSING DISCHARGE PROGRESS NOTE [address] [address] Name: Nina Harrington [place] [facility] Date: 06/10/2022 Time: 12:09 PM The nursing measures listed below are those which were carried out while the patient was at the facility noted above and are not to be interpreted as physician orders for extended care. ACCOMPANIED BY: children DESTINATION: home DISCHARGE NURSE: Donna Rios RN Height: Height: 165.1 cm (5' 5") (06/06/221625) Weight: Weight: 101.3 kg (223 lb 4.8 oz) (06/06/221625) Most Recent Vital Signs: BP: 118 mmHg/77 mmHg (06/10/22819) Pulse: 61 (06/10/22819) Temp: 36.33 C (06/10/22819) Resp: 18 (06/10/22819) SpO2: 98 % (06/10/22819) PAIN LEVEL AT DISCHARGE: Level of Pain: 0/10 Pain Scale Type: [facility] Adult Scale 0-10 Type of Pain: Location: Radiation: Intervention: Instructions for Pain Management Post Discharge Given: yes BELONGINGS PRESENT ON DISCHARGE: Patient Belongings at Bedside Belongings at Bedside: Vision;Dentures;Clothing (06/10/221206) Dentures: Uppers (06/10/221206) Vision - Corrective Lenses: Contacts (06/10/221206) Clothing: Pants;Socks;Underpants;Shirt;Footwear;Bra (06/10/221206) Other Valuables: Purse (06/10/221206) Patient Belongings Sent to Safe/Locker Belongings Sent to Safe: None (06/10/221206) I verified that all belongings were present at discharge. (Nurse initials - [facility]) Medications Brought by Patient?: No (06/10/221206) Home Medications: N/A (06/10/221206) I verified that all remaining home medications were returned to patient at discharge. (Nurse initials - [facility]) HARD COPY OF NARCOTIC PRESCRIPTION SIGNED AND PROVIDED TO PATIENT UPON HOSPITAL DISCHARGE: N/A READMISSION RISK (SCORE): Readmission Risk Score: 14 (06/10/22 1200) RESTRAINTS THIS HOSPITALIZATION: no BEHAVIORAL CONCERNS: none IMMUNIZATIONS GIVEN THIS ADMISSION: none NEUROLOGICAL Terry Coma Scale: Best Verbal Response: Verbally appropriate for age (06/10/22 1000) Best Motor Response: Obeys commands appropriate for age (06/10/22 1000) Coma Score: 15 (06/10/22 1000) Extremity Movement: RLE Motor Strength: 5-Active movement with full resistance (06/10/22 1000) RUE Motor Strength: 5-Active movement with full resistance (06/10/22 1000) LLE Motor Strength: 5-Active movement with full resistance (06/10/22 1000) LUE Motor Strength: 5-Active movement with full resistance (06/10/22 1000) Pupil Size/Reaction: SEIZURE PRECAUTIONS: no SENSORY DEFICITS: no SPEECH, HEARING, VISION PROBLEMS: Are you deaf or do you have serious difficulty hearing?: No (06/06/221625) Are you blind or do you have serious difficulty seeing, even when wearing glasses?: No (06/06/221625) Is patient non-verbal or have difficulty speaking? no LANGUAGE BARRIER: no FEEDING: independent ORAL HYGIENE: wears dentures Functional [place] Measure (must be completed for all patients on discharge): Feedin = complete independence Locomotion: 4 = complete independence Expression: 4 = complete independence Transfer Mobility/Ambulation Status: 4 = complete independence Social Interaction: 4 = complete independence Dressin = complete independence Hygiene: 4 = complete independence RESPIRATORY: Discharged with Oxygen: yes, O2 flow rate: 2 L/MIN (06/10/22 1000), Ventilator: no Trach/Date of Trach: no Left Breath Sounds: Diminshed (06/10/22 1000) Right Breath Sounds: Diminished (06/10/22 1000) CARDIOVASCULAR: (Cardiovascular WNL = Rhythm regular, normal rate per age, normal heart sounds (not accentuated, diminished or split,) no edema, brisk capillary refill, pulses present, no murmur.) Observation WNL = Observation WNL: WNL except for items charted below (06/10/22 1000) Heart Sounds: S1;S2 (06/10/22 1000) Rhythm: Regular (06/10/22 1000) Extremities: +Sensation;Right;Left;Upper;Lower (06/10/22 1000) Pulses Right: Dorsalis Pedis +;Radial + (06/10/22 1000) Pulses Left: Dorsalis Pedis +;Radial + (06/10/22 1000) Edema: No (06/10/22 1000) Edema Location: Generalized (06/09/22 2100) Edema Assessment: +1 - Description (06/09/22 2100) Capillary Refill: 3 sec (06/10/22 1000) Intravenous Lines: other - peripheral removed INTEGUMENTARY: Integumentary Observations: none Wound(s): na MUSCULOSKELETAL: Equipment needs: (TBD) (06/07/22 1447) Prosthetic(s): no GI ELIMINATION: (GI WNL = Abdomen flat, soft, no tenderness, symmetrical. Normal active bowel sounds present in all4 quadrants.) Observation WNL: Observation WNL: WNL except for items charted below (06/10/22 1000) Abdomen: Soft;Tender (06/10/22 1000) Bowel Sounds: All Quadrants;Present (06/10/22 1000) Last Bowel Movement: 06/08/22 (06/08/22 0930) Ostomy Present: no ELIMINATION: ( WNL = Genitalia intact without discharge, swelling or pain. Urine clear and pale yellow, no foul smell. Continence appropriate for age. No bladder distention - absence of urinary devices - no hemo or peritoneal dialysis.) Observation WNL: Observational WNL: WNL except for items charted below (06/10/22 1000) Urine Description: Clear;Yellow (06/10/22 1000) Observational WNL: WNL except for items charted below (06/10/22 1000) Ostomy Present: no REPRODUCTIVE: Reproductive/Sexual Concerns: no Drainage: kjc COPING: Family/Community Support Systems in Place: Yes, Emergency Contact Name: Emergency Contact Number: Discharge instructions were reviewed with patient and children. Patient verbalized understanding and denied questions at this time. Patient left unit via wheelchair accompanied by transport staff andfamily. Discharge Checklist: Discharge Instructions - Initials: [facility] Prescriptions for Controlled Substances: N/A - Initials: [facility] Home Medications Returned: N/A - Initials: [facility] POLST Form (if applicable): N/A - Initials: [facility] All IV Fluid sites have been discontinued: yes, date - 06/10/22 - Initials: [facility] Lines/Drains/Airways (LDAs) have been completed in flowsheet rows: yes, date - 06/10/22 - Initials: kjc * Vilma Reed RN - 06/09/2022 12:20 PM EDT 0758 - Sent a text to Dr Giovanny Hicks making his aware of pt coming up as a Sepsis Alert and did he want more labs drawn besides the am CBC and BMP. Dr Hicks asked what was driving the alert and I told him I believed that it was the tempeture documented of 35.8 (96.4) and that we obtained a new oraltemp of 36.6 (97.9) and that the pt was resting comfortably in bed. Dr Hicks texted that there would be no new labs that needed to be ordered and that he was "aware of sepsis alert, no sepsis present". Will continue to monitor pt. * Adeline Medina RN - 06/06/2022 4:38 PM EDT Dual Licensed Skin Assessment completed by Adeline Medina RN and Amairani Rosales LPN. The patient is/has a N/A Skin Breakdown (includes non blanchable erythema): No documented in this encounter Miscellaneous Notes * Ancillary Progress Note - Lisa Romo RN - 06/10/2022 12:39 PM EDT ADULT CARE MANAGEMENT - DISCHARGE NOTE [facility] [address] Name: Nina Harrington Location: [facility]643/A Date: 06/10/2022 Time: 2:35 PM The following coordination of care and discharge plan has been coordinated with the care team, patient, family and/or caregiver according to the patients needs and preferences. Discharge Discharge Insurance considerations verified and completed: Yes (06/10/22 390) Second Notice Important Message from Medicare delivered: Yes (06/10/221433) Date Delivered: 06/09/22 (06/10/22 143) Retain copy in EHR: Yes (06/10/221433) Was Caregiver/Family contacted regarding discharge: Yes (06/10/221433) Discharge Transportation: Family/Friends drive (06/10/221433) Date of scheduled discharge transportation: 06/10/22 (06/10/221433) Time of scheduled discharge transportation: (afternoon) (06/10/221433) Patient declined post-hospital transition of care recommendation: N/A (06/10/221433) Final D/C Plan - Complete at time of D/C Final Discharge Plan (Complete only at time of Discharge): Home with Services (06/10/221433) Home Medical Care - Discharged on 06/10/2022 Admission date: 06/06/2022 - Discharge disposition: Home- Self Care Service Provider Selected Services Address Phone Fax Patient Preferred Last Updated [facility] [address] [place] [address] [phone] Lisa Romo RN 06/10/2022 1433 Narrative: Pt discussed in IDT rounds with attending service. As per attending service pt is medically stable for discharge. CM followed up with open referral for [facility]. As per luigi Richard at [facility], SOC will be within 24-48 hours. * Ancillary Progress Note - Lisa Romo RN - 06/10/2022 10:59 AM EDT CARE MANAGEMENT - ADULT TRANSITION NOTE [facility] [address] Name: Nina Harrington Location: [facility]643/A Date: 06/10/2022 Time: 10:59 AM Prescription Coverage: Yes (06/07/22 115) RX Plan and Comment: RAPHAEL Malik (06/07/22 1150) Risk Stratification Risk Stratification Medical and Behavioral Health Concerns Identified: Chronic disease (06/07/22 1150) Psycho Social/Care Gaps concerns identified upon admission:: Adjustment to illness/injury () OBRA or OPTIONS needed for placement: No (06/07/22 1150) Readmission Risk Score: 14 (06/10/22 0800) AM-PAC Score With Stairs : 17 (06/07/22 1447) Caregiver Information Emergency Contact(s) Name Relation Home Work Mobile Stephani Horta Child [phone] Taylor Adams Child [phone] Transition of Care Checklist Transition of Care Checklist (aka Readmission Risk Score) Readmission Risk Score: 14 (06/10/22799) At time of discharge, if assistance is needed, does your family/caregiver have readiness, willingness and the ability to provide care for you at HOME?: Yes (06/09/221748) Discharge Disposition: Home w/Home Health (06/09/221748) Home or Home w/Home Health: Moderate (12-17%) (14) (06/09/221748) Outpatient Diamond Powder Technician: No, not applicable (06/09/221748) Narrative: Pt discussed in IDT rounds today with attending service. As per attending service pt is medically stable for discharge today. CM followed up with an open TENA for [facility] and [facility]. As per both agencies they need referral clinical information faxed to each agencies. KAYLA Benz sent a TT regarding the same. CM met with pt at bedside to update the same. Anticipated Transportation at Discharge: family Patient/Family Expectations: home with services. Transition Planning Transition Planning Transition Plan/Considerations: Needs identified - discharge planning services explained to patientfamily / caregiver - choices offered;Instructed to call with concerns;Discussed at Interdisciplinary Team / Boost Rounds (06/09/221748) Transition services explained and patient/family/caregiver agreeable: Home with Home Care () Transition plan discussed with - Enter name and phone #: PT, bp6 rn (06/09/221748) Additional Considerations: Care Management will continue to monitor and assist with discharge planning needs * Ancillary Progress Note - Kathi Padron PTA - 06/10/2022 10:00 AM EDT PROGRESS NOTE - Physical Therapy [address] [address] Name: Nina Harrington Location: [facility]A Date: 06/10/2022 Time: 11:02 AM Nina Harrington is a/an 81 year old female. Patient Status: Inpatient Insurance: Payor: [employer] MEDICARE ADVANTAGE Plan: [employer] MEDICARE ADVANTAGE Product Type: *No Product type* Payor: [employer] [place] Plan: [employer] [facility] Product Type: HMO Patient Seen: at bedside, nursing cleared patient for therapy Patient Identified By: Name, ID Band and Date Diagnosis: diverticulitis of colon (06/10/22999) Status of treatment: Treatment completed (06/10/22999) Orders: PT evaluation and treatment;OOB (06/10/22999) Weight Bearing Status: Weight bearing as tolerated (06/10/22999) Precautions: Falls;Safety;Oxygen (06/10/22999) Total Treatment Time--free text: 25 (06/10/22999) Subjective: Agreeable " I get SOB" Pain: No complaints of pain P.T. Bed Mobility Supine-Sit: Minimal Assistance (06/10/22999) Sit-Supine: Not Tested (06/10/22999) Transfers Sit-Stand: Supervision (06/10/22999) Stand-Sit: Supervision (06/10/22999) W/C-Bed/Mat: Supervision (06/10/22999) Ambulation: Distance ambulated (feet): 100 Assistive Device: Rolling walker Assist: Supervision Extremity Exercise Sitting: Hip;Knee;Ankle (06/10/22999) Hip : Flexion;Bilateral LE;1 set of 10 (06/10/22999) Knee : Bilateral LE;Flexion;Extension;1 set of 10 (06/10/22999) Ankle: Bilateral LE;Plantar flexion;Dorsiflexion;1 set of 10 (06/10/22999) Treatment Provided: Gait Training 11 minutes: gait training with rolling walker Therapeutic Exercises: 14 minutes Alarm Status Patient positioned in: Chair (06/10/22999) With: Call harrison in reach (RN aware Pt. is not alarmed) (06/10/22 1000) Assessment: Patient supine in bed upon arrival to room. She required assistance to transfer to EOB.Pt. ambulated 100' with RW and supervision. Declined further ambulation 2* to c/o SOB. Patient participated in seated therapeutic exercises listed above to promote LE strength/ ROM. Left in chair. Upon discharge, please consider rehab stay at this time. If pt is able to reach therapy goals prior to discharge, please consider home with initial supervision as needed. Deficits requiring P.T. treatment needs: Safety;Mobility;Balance;Weakness;Endurance;Lower extremitystrength (06/10/22 1000) Equipment needs: (TBD) (06/07/22 1447) Plan: Continue with current treatment plan established on evaluation. AM PAC Score with Stairs: 17 A portion of this AM-PAC assessment not scored based on functional assessment; rather clinical decision making utilized based on current findings and/or prior level of function. Please refer to future AM-PAC calculations of functional ability as they become available. * Progress Notes - Non-Billable - NIECY Newman - 06/10/2022 9:24 AM EDT PROGRESS NOTE - General Surgery Discharge Transition [facility] [address] Name: Nina Harrington Location: [facility]A Date: 06/10/2022 Time: 9:24 AM Admitting Diagnosis: Complicated diverticulitis, colovaginal fistula PROCEDURE: None at this admission Estimated Discharge Date: 06/10/2022 Subjective: Pt was resting in bed comfortably. 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 Tolerated breakfast, denied nausea/vomiting. abd pain controlled. 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 Ambulating. Voiding without difficulty. Had BM yesterday. Lives alone but 2 daughters live next door and will assist at home. Review of Systems: Constitutional: (-) fever chills sweats or weight loss Abdominal/GI: (-) negative: no pain, heartburn, dysphagia, bleeding, change in bowel habits, nauseaor vomiting Most Recent Vital Signs: BP: 118 mmHg/77 mmHg (06/10/22819) Pulse: 61 (06/10/22819) Temp: 36.33 C (06/10/22819) Resp: 18 (06/10/22819) SpO2: 98 % (06/10/22819) Constitutional: no acute distress Abdomen: soft, no tenderness, nondistended Lab and Radiology: Pending results: No results pending Discharge Preparation: Consultation: No pending consultations to be completed Discharge Medication Plans: Pain Management: resume vicodin DVT Needs: None GI: None Antibiotics: Cipro and Flagyl Stool Softener: None Anticipated Diet at Discharge: Low Residue Disposition / Needs Post Discharge: Home Return Appointments Planned: Surgeon in 2 weeks Reviewed d/c instructions with patient and answered questions patient had. Patient showed understanding and agreed to call if there is any concern. NIECY Brandon 06/10/2022 9:26 AM * Care Plan - Sigrid Myers RN - 06/10/2022 2:15 AM EDT Clinical Goal(s): Patient will remain free from injury 06/08/22 (06/08/221929) Possible barriers to meeting goal(s)/advancing plan of care: Unfamiliar environment. Stability of the patient: Moderately unstable - medium risk of patient condition declining or worsening Summary regarding today's goal(s): Met: Has remained free from injury. Recommendations: Continue to educate and reinforce fall risk protocol. * Ancillary Progress Note - Lisa Romo RN - 06/09/2022 5:55 PM EDT HOME HEALTH/HOSPICE REFERRAL FORM CARE MANAGEMENT [facility] [address] Referred By: MONTY Alexander Admission Date: 06/06/2022 Discharge Date: 06/10/22 Discharge Time: TBD Start Date: Within 48 hours Agency Referred To: [facility] PATIENT INFORMATION: Name: Nina Harrington [address]: [address] [place] [id number] : 1940 (home) SSN: [id number] County: [place] Caregiver Name: Stephani Horta Relationship: Daughter ) Emergency Contacts: Extended Emergency Contact Information Primary Emergency Contact: Stephani Horta Mobile Relation: Child Real Estate Loan Officer needed? No Secondary Emergency Contact: Taylor Adams Relation: Child Real Estate Loan Officer needed? No MEDICAL INFORMATION: Principal Diagnosis: Diverticulitis of colon Other Diagnosis: See attached History and Physical Surgery and Dates: Past Surgical History: Procedure Laterality Date APPENDECTOMY W/OTHER PROCEDURE 1960 when removed gall bladder COLONOSCOPY, DIAGNOSTIC (RECTUM) 05/29/2016 poor prep, diverticulosis/inpt [facility] COLONOSCOPY, DIAGNOSTIC (RECTUM) 06/05/2017 diverticulosis, repeat 3 yrs/[facility] COLONOSCOPY, DIAGNOSTIC (RECTUM) 02/28/2018 adenomatous polyps, diverticulosis, repeat 3 yrs / [facility] COLONOSCOPY, DIAGNOSTIC (RECTUM) 05/08/2020 inflammatory tissue on bx, diverticulosis / [facility] COLONOSCOPY, W/BIOPSY 03/20/2012 hyperplastic polyps rpt 3 years. EGD, FLEXIBLE, DIAGNOSTIC 04/29/2014 normal/inpt [facility] EGD, FLEXIBLE, DIAGNOSTIC 05/29/2016 fundic submucosal mass/inpt [facility] EGD, FLEXIBLE, DIAGNOSTIC 05/08/2020 normal / [facility] EGD, FLEXIBLE,W/ENDOSCOPIC US 11/08/2016 inflammatory changes, stomach lesion, repeat EUS 1.5 yrs/[facility] EGD, FLEXIBLE,W/ENDOSCOPIC US 05/01/2018 stromal cell (smooth muscle) neoplasm, CBD dilation, repeat 2 yrs (needs OV prior)/[facility] EGD, FLEXIBLE,W/ENDOSCOPIC US 09/01/2020 leiomyoma / [facility] INCISIONAL HERNIA REPAIR, LAP, REDUCIBLE 09/29/2012 Repair of incarcerated supraumbilical (incisional) hernia with [facility] mesh 09/29/12 LIGATE/CUT OVIDUCT(S) REMOVAL OF TONSILS, AGE 12+ age 11 REMOVE GALLBLADDER 1960 SIGMOIDOSCOPY, DIAGNOSTIC 04/29/2014 stool in rectum/inpt [facility] SMALL BOWEL ENDOSCOPY, REMOVE FOREIGN BODY mesh from prior hernia surgery, wrapped around small bowel. small bowel surgery Diet: Refer to Physician discharge instructions. Allergies: Diovan [valsartan], Enalapril, Escitalopram oxalate, Iodinated diagnostic agents, Iodine, Metoprolol tartrate, [place] oil-black currant-vit e, Verapamil, and Wellbutrin [bupropion hcl] Isolation Type: None Activity Restrictions: Refer to Physician discharge instructions. Isolation For: None HOME CARE ORDERS: (Discipline and Frequency): Assisted to assess patient's post hospital discharge. Assisted to assess patient's medical condition. -General assessment with vitals -Check for signs and symptoms of infection -Medication management/review and teach Home safety evaluation - PT/OT assess and treat. Lab work as needed. Medications Dose, Frequency, & Route: Refer to Physician's Discharge Instructions Equipment and Supplies: Ordering Physician and Contact Information: Dionte Snyder MD Comments: PCP: PCP: MARCELA PINTO[address] [address] [phone] D/C Physician: Dionte Snyder MD Insurance: See attached facesheet. * Ancillary Progress Note - MONTY Alexander - 06/09/2022 5:44 PM EDT CARE MANAGEMENT - ADULT TRANSITION NOTE [facility] [address] Name: Nina Harrington Location: [facility]/A Date: 06/09/2022 Time: 5:44 PM Prescription Coverage: Yes (06/07/22 115) RX Plan and Comment: RAPHAEL Malik (06/07/22 115) Risk Stratification Risk Stratification Medical and Behavioral Health Concerns Identified: Chronic disease (06/07/22 115) Psycho Social/Care Gaps concerns identified upon admission:: Adjustment to illness/injury () OBRA or OPTIONS needed for placement: No (06/07/22 1150) Readmission Risk Score: 14 (06/09/22 1600) AM-PAC Score With Stairs : 17 (06/07/22 1447) Caregiver Information Emergency Contact(s) Name Relation Home Work Mobile Stephani Horta Child [phone] Taylor Adams Child [phone] Transition of Care Checklist Transition of Care Checklist (aka Readmission Risk Score) Readmission Risk Score: 14 (06/09/22 1600) Narrative: Awaiting PT/OT updates. Last PT/OT assessment () indicates recommendation for home with / initial supervision Pt reports Surgery Yellow service was in to discuss plan for d/c home tomorrow. Pt reports prior hx of home health services with [facility]. Pt agreeable to home health referral. 06/10/22 CM to follow up with home health referral. Pt is established with [facility] for home oxygen needs. Family will bring oxygen tank from home for transport home. Talent Development Manager spoke with Pt's daughter/ Stephani by phone to provide update. Daughter/Stephani will call in around 7:30 AM tomorrow to confirm whether or not Pt is being discharge. Daughter/ Kaci to provide transport home. Anticipated Transportation at Discharge: Family/ eldest daughter - Kaci Patient/Family Expectations: Home with family support and home health services. Transition Planning Transition Planning Transition Plan/Considerations: Needs identified - discharge planning services explained to patientfamily / caregiver - choices offered;Instructed to call with concerns;Discussed at Interdisciplinary Team / Boost Rounds (06/09/221748) Transition services explained and patient/family/caregiver agreeable: Home with Home Care ([phone]) Transition plan discussed with - Enter name and phone #: PT, bp6 rn (06/09/221748) Additional Considerations: Care Management will continue to monitor and assist with discharge planning needs * Respiratory Progress Note - Tania Ovalles RRT - 06/09/2022 11:02 AM EDT PDP RE-EVALUATION NOTE - Respiratory Care Services [facility] [address] Name: Nina Harrington Location: [facility] B643/A Date: 06/09/2022 Time: 11:02 AM Patient Driven Protocol Summary: Re-evaluation . This Treatment Plan and medications will be reviewed by the Primary Care Team for any contraindications. Respiratory Care Treatment Plan Aerosol Therapy Treatment:: Inhaler(s) QID with Combivent Respimat: (20mcg Ipratrpium Brantley and 100mcg Albuterol) / 1 puff. to reduce work of breathing and improve pulmonary gas exchange. Additional Aerosolized Treatments: Hand Held Nebulizer Tx PRN with Albuterol Sulfate: Unit dose 0.083%. to reduce work of breathing and improve pulmonary gas exchange. . Pulmonary Volume Expansion Therapy: Incentive Spirometry PRN to prevent or treat alveolar consolidation and atelectasis. .. The patient will be re-evaluated: No re-evaluation [...] Cough Effectiveness: 0 - Strong non-productive Sputum Production 0 - No sputum production Level of Activity: 1 - Ambulatory with assist O2 needed to keep SpO2 greater than or equal to 92%: 1 - Oxygen 1-3 LPM or FiO2 less than 35% Assessment Score: 4 Total Assessment Score: 7 Breath Sounds: Inspiratory and expiratory diminished bilaterally.. Cough and Sputum: An effective cough produced no sputum... Vital Signs: Resp: 18 (06/09/22 0657) Pulse: 99 (06/09/22 0657) Temp: 36.6 C (97.9 F) (06/09/22 0750) BP: 121/63 (06/09/22 0657) SpO2: 99 % (06/09/22 0657) Primary Service: Surgery Yellow. Admitting Diagnosis: Diverticulitis [K57.92] Diverticulitis of colon with perforation [K57.20] Pulmonary Diagnosis: COPD. * Care Plan - Juany Oleary RN - 06/09/2022 6:52 AM EDT Clinical Goal(s): Patient will remain free from injury 06/08/22 (06/08/22 1930) Possible barriers to meeting goal(s)/advancing plan of care: decreased mobility Stability of the patient: Moderately stable - low risk of patient condition declining or worsening Summary regarding today's goal(s): Met: No injuries reported 06/08/22 Recommendations: Floor free of clutter, hourly rounding, call hrarison within reach * Ancillary Progress Note - MONTY Alexander - 06/08/2022 1:11 PM EDT CARE MANAGEMENT - ADULT TRANSITION NOTE [facility] [address] Name: Nina Harrington Location: [facility] B643/A Date: 06/08/2022 Time: 1:11 PM Prescription Coverage: Yes (06/07/22 1150) RX Plan and Comment: RAPHAEL Malik (06/07/22 1150) Risk Stratification Risk Stratification Medical and Behavioral Health Concerns Identified: Chronic disease (06/07/22 1150) Psycho Social/Care Gaps concerns identified upon admission:: Adjustment to illness/injury () OBRA or OPTIONS needed for placement: No (06/07/22 1150) Readmission Risk Score: 14 (06/08/22 1200) AM-PAC Score With Stairs : 17 (06/07/22 1447) Caregiver Information Emergency Contact(s) Name Relation Home Work Mobile Stephani Horta Child [phone] Taylor Adams Child [phone] Transition of Care Checklist Transition of Care Checklist (aka Readmission Risk Score) Readmission Risk Score: 14 (06/08/22 1200) Narrative: Talent Development Manager met with Pt to discuss role and any anticipated disposition planning needs. PT/OT consults ordered. Pt reports her daughters will be in to visit tomorrow. Talent Development Manager to meet with Pt and family to discuss PT/OT evals and disposition planning options. Pt shared she resides next door to her Daughter (Stephani) who checks in regularly during the day. Message received from BP6 RN - Pt's son and DIL arrived for visit. Awaiting PT/OT evaluations. Pt reports prior hx of rehab stay at [facility] and reports she would be agreeable to a referral to rehab facility to determine rehab eligibility. Anticipated Transportation at Discharge: Family Patient/Family Expectations: Uncertain at present time Transition Planning Additional Considerations: Care Management will continue to monitor and assist with discharge planning needs * Ancillary Progress Note - Ellis Subramanian Board Design Engineer - 06/07/2022 1:25 PM EDT CLINICAL NUTRITION CONSULT/PROGRESS NOTE [facility] [address] Name: Nina Harrington Location: [facility] B643/A Date: 06/07/2022 Time: 2:12 PM How patient was identified (select 2): date and Name Discussed in interdisciplinary rounds: No Nina Harrington is a 81 year old female being seen for reduced dietary intake and significant unintentional weight loss. Primary Diagnosis: Presents with complicated diverticulitis. History of T2DM and CKD stage 3. Other pertinent information: At home, patient has a fair appetite consuming small portions when shefeels like eating. She reported pain after eating, contributing to her poor appetite. This resultedin a loss of 22-25 lb since February. At home she is on Glucerna, consuming one bottle at breakfast withher coffee and patient is willing to try vanilla boost. Prior to hospitalization, performs ADL's. NUTRITION ASSESSMENT: Past medical/surgical history and medications reviewed. Food/Nutrition-Related History Diet: Fiber Restricted Previously followed diet: Regular. Food Allergies/Intolerances: None known. Adult Energy Intake: Less than 75% of estimated energy requirement for greater than 1 month (moderate/severe, chronic illness). Percentage of meal intake: 50-75% Oral Nutrition Supplement (ONS): None Pertinent medications/vitamins/minerals/supplements: Lipitor, Novolog, Prilosec, Cipro, Flagyl. Pertinent Biochemical Data: Elevated A1c (6.8). Nutrition-Focused Physical Findings: Appearance: Obese Respiratory support: LFNC Nasal/Oral: Dentition: Dentures: Partial Digestive: No issues identified Last Bowel Movement: 06/07/22 (06/07/22 0553) Cognition: Awake, alert Skin: Intact Enteral access: None. Nutrition Focused Physical Exam: NFPE completed on 06/07/22 Subcutaneous Fat Loss: Orbital fat pads: WNL Tricep: Mild Muscle Loss: Temples: Mild Clavicles: WNL Shoulders: WNL Quadriceps: WNL Calves: WNL Micronutrient Exam: No concerns for micronutrient exam Edema Location: Generalized (06/07/22 0809) Edema Assessment: +1 - Description (06/07/22 0809) Anthropometrics Measurements Height: 165.1 cm (5' 5") (06/06/22 1626) Admission weight: 101.1 kg (223 lb 4.8 oz) Weight: 101.3 kg (223 lb 4.8 oz) (06/06/22 1626) BMI: 37.16 (06/06/22 1626) Usual Body Weight: 256 lb [place] weight: 67.9 kg (149.4 lb) [place] Weight Based on BMI: 24.9 Adjusted ideal weight: 76.3 kg (167.75 lb) Interpretation of Weight Change:Greater than 7.5% weight loss in 3 months (Severe) Weight Comment: Patient lost 22 lbs since February. Nutrition Prescription: Energy needs: 25-30 Kcal/kg Kcal/day: 0340-6383 Based on [place] weight Protein needs: 1.0-1.2 gm/kg Protein: 68-81 Based on [place] weight Fluid needs: 25 ml/kg Fluid: 1907 ml/day Based on adjusted ideal weight Malnutrition: Malnutrition Present: Yes (06/07/22 1500) Adult Malnutrition Classification: Severe (06/07/22 1500) Malnutrition Characteristics: Inadequate energy intake;Weight loss (06/07/22 1500) Malnutrition Care Plan: Patient meets ASPEN/AND criteria for severe malnutrition. Plan to meet 50-75% of estimated calorie and 50-75% of estimated protein requirements via therapeutic diet and a nutrition intervention of oral nutrition supplements. If patient unable to achieve estimated requirements over next 5 days, will need to consider enteral nutrition. NUTRITION DIAGNOSIS: Malnutrition severe related to chronic illness as evidenced by patient consuming less than 75% of estimated energy requirements x 1 month and greater than 7.5% weight loss x 3 months. Altered GI function related to diverticulitis as evidenced by need for fiber restricted diet. Goals: Patient to consume greater than 50 % of daily meals and 75% of daily supplements within 5 days. NUTRITION INTERVENTION/PLAN: Orders: Oral nutrition supplement added Boost (1 cup provides 240 calories, 10 grams protein, 41 grams carbohydrate, 32 mcg vitamin K) TID Clinical Nutrition Recommendations: Continue current nutrition plan of care. NUTRITION MONITORING AND EVALUATION: Tolerance of supplement per patient/nursing report Weight for trends Plan follow-up: Will follow and adjust nutrition plan of care as medical condition requires. Please contact for change(s) in patient condition requiring earlier intervention. Courtney Guerra Investor Relations Manager * Ancillary Progress Note - Lisa Romo RN - 06/07/2022 11:55 AM EDT CARE MANAGEMENT - ADULT INITIAL SCREENING [address] [address] Name: Nina Harrington Location: [facility] B643/A Date: 06/07/2022 Time: 11:55 AM Patient Class: Inpatient (06/07/22 1150) Discussed patient with the interdisciplinary care team. This Metal Furniture Polisher performed a chart review and met with pt at bedside to complete admission screen and assessed needs for transition planning. The career technical education instructor role and services were explained and emotional support was provided. 30 Day Readmission Screening 30 Day Readmission Readmission within 30 days?: No (06/07/22 1150) Chief Complaint: No chief complaint on file. Prior Living Arrangements What was your living situation prior to admission/observation?: Independently;Alone (06/07/221149) Do you have any children, pets, or other dependents that you are currently caring for?: No (06/07/221149) Living Quarters: House (06/07/221149) How many stories is the dwelling?: One Story (06/07/221149) Number of steps to enter living quarters:: 4-5 (06/07/221149) Location of bathroom(s): All floors or Single story dwelling (06/07/221149) Do you have serious difficulty walking or climbing stairs? (5 years old or older): No (06/07/221149) History of falling: No (06/07/221149) Prior Level of Functioning Describe the patient's ability prior to admission/observation to perform ADLs: Performs independently (06/07/221149) Describe the patient's mobility status prior to admission: Patient ambulates independently;Patient is able to sit on bedside;Patient can sit up in bed (06/07/221149) Patient uses assistive device: No (06/07/221149) Caregiver Information Emergency Contact(s) Name Relation Home Work Mobile Stephani Horta Child [phone] Taylor Adams Child [phone] Risk Stratification/Psychosocial/Care Gaps Risk Stratification Medical and Behavioral Health Concerns Identified: Chronic disease (06/07/221149) Psycho Social/Care Gaps concerns identified upon admission:: Adjustment to illness/injury () OBRA or OPTIONS needed for placement: No (06/07/221149) Readmission Risk Score: 14 (06/07/221149) AM-PAC Score With Stairs : 18 (06/06/22 124) Comments: Pt lives alone in a one story home. As per pt her daughter, Stephani lives next door. Pt has4-5 steps to enter the home but as per pt she does not have any difficulty with steps. As per pt she has a cane and walker at home but does not use them. Pt has home O2 and as per pt it is provided by [facility] Patient. The pt does not drive but as per pt Stephani provides transportation and helpswith the things she needs. Pt did have a prior stay at [facility] in [place] and had HHservices through [facility] for PT as per pt. Prior to Admission Services Services Prior to Admission MARINE SUPERINTENDENT Services (Services received within the last 30 days with exception, Psych within last two years): N/A (06/07/22 115) [place] Dept. of Aging (PDA) Waiver Program: N/A (06/07/22 115) MARINE SUPERINTENDENT Transportation (Services received within the last 30 days): Family/Friends Personal Vehicle (06/07/22 115) Outpatient Metal Furniture Polisher: no, not applicable Patient/Family Expectations: home Anticipated Disposition Plan & Post Acute Needs Anticipated Plan Anticipated D/C disposition per abbreviated screening: Routine discharge or self care, No D/C planning needs identified. Will monitor for status change (06/07/221149) Anticipated Post-Acute Care needs identified: N/A (06/07/221149) For further screening information, please refer to the Care Management flow document. * Ancillary Progress Note - Myranda Pinto RRT - 06/06/2022 1:54 PM EDT PATIENT DRIVEN PROTOCOL - Respiratory Care Services [address] [address] Name: Nina Harrington Location: [facility] B643/A Date: 06/06/2022 Time: 1:54 PM Patient Driven Protocol Summary: Initial evaluation performed. This Treatment Plan and medications will be reviewed by the Primary Care Team for any contraindications. Respiratory Care Treatment Plan Aerosol Therapy Treatment:: Inhaler(s) QID with Combivent Respimat: (20mcg Ipratrpium Brantley and 100mcg Albuterol) / 1 puff. to reduce work of breathing and improve pulmonary gas exchange. Additional Aerosolized Treatments: Inhaler(s) QDAY with Incruse Ellipta (Umeclidinium 62.5 mcg inhalation powder) / 1 inhalation. to reduce work of breathing and improve pulmonary gas exchange. Albuterol PRN to reduced WOB . Pulmonary Volume Expansion Therapy: Incentive Spirometry PRN to prevent or treat alveolar consolidation and atelectasis. The patient will be re-evaluated: No re-evaluation [...] 35% Assessment Score: 2 Total Assessment Score: 5 Breath Sounds: Inspiratory and expiratory clear and diminished bilaterally.. Cough and Sputum: An effective cough produced no sputum... CXR: N/A. Vital Signs: Resp: 20 (06/06/22 1240) Pulse: 65 (06/06/22 1240) Temp: 36.5 C (97.7 F) (06/06/22 1240) BP: 108/62 (06/06/22 1240) SpO2: 100 % (06/06/22 1240) PFT: Minimal Predicted IC: 0.855 L. Inspiratory capacity: 2.0L. Patient unable to perform Inspiratory Capacity. Reason: . Primary Service: Surgery Yellow. Admitting Diagnosis: Diverticulitis [K57.92] Diverticulitis of colon with perforation [K57.20] Pulmonary Diagnosis: COPD. Prescriptions/Home Medications/Durable Medical Equipment: Spiriva and Combivent QID per pt . Recommended New home medications/durable medical equipment/outpatient pulmonary/sleep referral None. documented in this encounter Plan of Treatment Upcoming Encounters Date Type Specialty Care Team Description 06/19/2022 Office Visit General Surgery Teresita Padron, [facility] [address] [facility] [place] [address] 06/25/2022 Office Visit Cardiology Hammad Lopez, [address] [facility] [place] [address] 07/11/2022 Office Visit Hematology Oncology Ida Cueva CRNP [address] [place] [address] Health Maintenance Due Date Last Done [...] Additional history exists CKD PHOS USE SMARTSET 60163 02/19/202302/10, 03/09/2021, 03/22/2019 DIABETES-EYE EXAM 03/08/2023 03/08/2022, , 08/07/2020, Additional history exists O2 ASSESSMENT COMPLETED IN PAST YEAR FOR COPD 06/09/2023 06/10/2022 CKD HGB USE SMARTSET 00662 06/10/202306/10, 06/10/2022, 06/09/2022, Additional history exists DXA Scan 08/08/2025 08/08/2020, [...] Comments GLUCOSE METER, POINT OF CARE PREMA 06/10/2022 7:50 AM EDT DIFFERENTIAL, AUTOMATED STAT 06/10/2022 7:11 AM EDT BASIC METABOLIC PANEL STAT 06/10/2022 7:11 AM EDT CBC WITH WBC DIFFERENTIAL STAT 06/10/2022 7:11 AM EDT CBC STAT 06/10/2022 7:11 AM EDT GLUCOSE METER, POINT OF CARE PREMA 06/09/2022 9:58 PM EDT GLUCOSE METER, POINT OF CARE PREMA 06/09/2022 4:32 PM EDT GLUCOSE METER, POINT OF CARE PREMA 06/09/2022 11:23 AM EDT BASIC METABOLIC PANEL STAT 06/09/2022 8:37 AM EDT DIFFERENTIAL, AUTOMATED STAT 06/09/2022 8:36 AM EDT CBC WITH WBC DIFFERENTIAL STAT 06/09/2022 8:36 AM EDT CBC STAT 06/09/2022 8:36 AM EDT GLUCOSE METER, POINT OF CARE PREMA 06/09/2022 7:07 AM EDT GLUCOSE METER, POINT OF CARE PREMA 06/08/2022 9:17 PM EDT GLUCOSE METER, POINT OF CARE PREMA 06/08/2022 4:15 PM EDT GLUCOSE METER, POINT OF CARE PREMA 06/08/2022 10:56 AM EDT DIFFERENTIAL, AUTOMATED STAT 06/08/2022 8:28 AM EDT CBC WITH WBC DIFFERENTIAL STAT 06/08/2022 8:28 AM EDT CBC STAT 06/08/2022 8:28 AM EDT BASIC METABOLIC PANEL STAT 06/08/2022 8:27 AM EDT GLUCOSE METER, POINT OF CARE PREMA 06/08/2022 7:23 AM EDT GLUCOSE METER, POINT OF CARE PREMA 06/07/2022 8:57 PM EDT GLUCOSE METER, POINT OF CARE PREMA 06/07/2022 4:14 PM EDT GLUCOSE METER, POINT OF CARE PREMA 06/07/2022 11:08 AM EDT GLUCOSE METER, POINT OF CARE PREMA 06/07/2022 7:39 AM EDT DIFFERENTIAL, AUTOMATED STAT 06/07/2022 6:28 AM EDT HEMOGLOBIN A1C Routine 06/07/2022 6:28 AM EDT BASIC METABOLIC PANEL STAT 06/07/2022 6:28 AM EDT CBC WITH WBC DIFFERENTIAL STAT 06/07/2022 6:28 AM EDT CBC STAT 06/07/2022 6:28 AM EDT GLUCOSE METER, POINT OF CARE PREMA 06/06/2022 9:26 PM EDT GLUCOSE METER, POINT OF CARE PREMA 06/06/2022 4:43 PM EDT DIFFERENTIAL, AUTOMATED STAT 06/06/2022 12:49 PM EDT BASIC METABOLIC PANEL STAT 06/06/2022 12:49 PM EDT ABO/RH STAT 06/06/2022 12:49 PM EDT TYPE AND SCREEN STAT 06/06/2022 12:49 PM EDT CBC WITH WBC DIFFERENTIAL STAT 06/06/2022 12:49 PM EDT CBC STAT 06/06/2022 12:49 PM EDT documented in this encounter Results * GLUCOSE METER, POINT OF CARE (06/10/2022 7:50 AM EDT) Glucose Meter 98 70 - 120 mg/dL [facility] [employer] Specimen Blood - Whole blood sample ( specimen) [facility] [address] [place] [address] * (ABNORMAL) DIFFERENTIAL, AUTOMATED (06/10/2022 7:11 AM EDT) WBC 8.73 4.00 - 10.80 K/uL [facility] Neutrophils % 50.4 40.0 - 75.0 % [facility] Lymphocytes % 27.1 18.0 - 42.0 % [facility] Monocytes % 11.7(H) 1.0 - 11.0 % [facility] Eosinophils % 9.2(H) 0.0 - 6.0 % [facility] Basophils % 0.5 0.0 - 2.0 % [facility] Immature Granulocytes % 1.1 0.0 - 2.0 % [facility] Absolute Neutrophils 4.40 1.80 - 7.70 K/uL LABORATOR Y [facility] Absolute Lymphocytes 2.37 1.00 - 4.80 K/ul LABORATOR Y [facility] Absolute Monocytes 1.02 0.00 - 1.10 K/uL [facility] Absolute Eosinophils 0.80(H) 0.00 - 0.70 K/uL LABOR[facility] Y [facility] Absolute Basophils 0.04 0.00 - 0.20 K/uL [facility] Absolute Immature Granulocytes 0.10 0.00 - 0.20 K/uL [facility] Specimen Blood - Venous blood specime n (specimen) Performing Organization Address [facility] de Phone Number [facility] [address] [place] [address] * (ABNORMAL) CBC (06/10/2022 7:11 AM EDT) WBC 8.73 4.00 - 10.80 K/uL [facility] RBC 3.37 3.85 - 5.15 M/uL [facility] HGB 9.1(L) 12.0 - 15.3 g/dL [facility] HCT 30.2(L) 36.0 - 45.2 % [facility] MCV 89.6 81.5 - 97.5 fL [facility] MCH 27.0 27.0 - 34.0 pg [facility] MCHC 30.1 32.0 - 36.0 g/dL [facility] RDW 16.0 11.5 - 15.5 % [facility] PLT 410(H) 140 - 400 K/uL [facility] MPV 9.0 6.6 - 11.1 fL [facility] nRBCs 0 <=0 /100 WBCs [facility] Specimen Blood - Venous blood specime n (specimen) Performing Organization Address [facility] de Phone Number LAB[facility] [address] [place] [address] * (ABNORMAL) BASIC METABOLIC PANEL (06/10/2022 7:11 AM EDT) BUN 7 6 - 20 mg/dL [facility] Creatinine 0.7 0.5 - 1.0 mg/dL [facility] Estimated Glomerular Filtration Rate 82Comment:eGFR is calculated based on the CKD-EPI 2020 equation >=60 mL/min [facility] Sodium 139 135 - 146 mmol/L [facility] Potassium 3.6 3.5 - 5.1 mmol/L [facility] Chloride 104 98 - 107 mmol/L [facility] CO2 31 22 - 32 mmol/L [facility] Anion Gap 4(L) 7 - 15 mmol/L [facility] C Glucose 111 70 - 120 mg/dL [facility] Calcium 8.5 8.4 - 10.2 mg/dL [facility] Specimen Blood - Venous blood specime n (specimen) Performing Organization Address [facility] de Phone Number LAB[facility] [address] [place] [address] * (ABNORMAL) GLUCOSE METER, POINT OF CARE (06/09/2022 9:58 PM EDT) Glucose Meter 128(H) 70 - 120 mg/dL [facility] [employer] Specimen Blood - Whole blood sample ( specimen) Performing Organization Address [facility] de Phone Number [facility] [address] [place] [address] * (ABNORMAL) GLUCOSE METER, POINT OF CARE (06/09/2022 4:32 PM EDT) Glucose Meter 162(H) 70 - 120 mg/dL [facility] Specimen Blood - Whole blood sample ( specimen) Performing Organization Address [facility] de Phone Number [facility] [address] [place] [address] * (ABNORMAL) GLUCOSE METER, POINT OF CARE (06/09/2022 11:23 AM EDT) Glucose Meter 125(H) 70 - 120 mg/dL [facility] Specimen Blood - Whole blood sample ( specimen) Performing Organization Address [facility] de Phone Number [facility] [address] [place] [address] * (ABNORMAL) BASIC METABOLIC PANEL (06/09/2022 8:37 AM EDT) BUN 9 6 - 20 mg/dL [facility] Creatinine 0.8 0.5 - 1.0 mg/dL [facility] Estimated Glomerular Filtration Rate 79Comment:eGFR is calculated based on the CKD-EPI 2020 equation >=60 mL/min [facility] Sodium 139 135 - 146 mmol/L [facility] Potassium 3.7 3.5 - 5.1 mmol/L [facility] Chloride 103 98 - 107 mmol/L [facility] CO2 30 22 - 32 mmol/L [facility] Anion Gap 6(L) 7 - 15 mmol/L [facility] Glucose 135(H) 70 - 120 mg/dL [facility] Calcium 8.9 8.4 - 10.2 mg/dL [facility] Specimen Blood - Venous blood specime n (specimen) Performing Organization Address [facility] de Phone Number [facility] [address] [place] [address] * (ABNORMAL) DIFFERENTIAL, AUTOMATED (06/09/2022 8:36 AM EDT) WBC 9.08 4.00 - 10.80 K/uL [facility] Neutrophils % 54.8 40.0 - 75.0 % [facility] Lymphocytes % 23.7 18.0 - 42.0 % [facility] Monocytes % 12.2(H) 1.0 - 11.0 % [facility] Eosinophils % 7.6(H) 0.0 - 6.0 % [facility] Basophils % 0.6 0.0 - 2.0 % [facility] Immature Granulocytes % 1.1 0.0 - 2.0 % [facility] Absolute Neutrophils 4.98 1.80 - 7.70 K/uL LAB[facility] Absolute Lymphocytes 2.15 1.00 - 4.80 K/ul LABORATOR [facility] Absolute Monocytes 1.11(H) 0.00 - 1.10 K/uL [facility] Absolute Eosinophils 0.69 0.00 - 0.70 K/uL [facility] Absolute Basophils 0.05 0.00 - 0.20 K/uL [facility] Absolute Immature Granulocytes 0.10 0.00 - 0.20 K/uL [facility] Specimen Blood - Venous blood specime n (specimen) Performing Organization Address [facility] de Phone Number LABORATORY [facility] [address] [place] [address] * (ABNORMAL) CBC (06/09/2022 8:36 AM EDT) WBC 9.08 4.00 - 10.80 K/uL LABORATORY [facility] RBC 3.36 3.85 - 5.15 M/uL LABORATORY [facility] HGB 9.2(L) 12.0 - 15.3 g/dL LAB[facility]ORY [facility] HCT 30.5(L) 36.0 - 45.2 % LABORATORY [facility] MCV 90.8 81.5 - 97.5 fL LABORATORY [facility] MCH 27.4 27.0 - 34.0 pg LABORATORY [facility] MCHC 30.2 32.0 - 36.0 g/dL LABORATORY [facility] RDW 15.9 11.5 - 15.5 % LABORATORY [facility] PLT 415(H) 140 - 400 K/uL LABORATORY [facility] MPV 9.1 6.6 - 11.1 fL LABORATORY [facility] nRBCs 0 <=0 /100 WBCs LAB[facility]ATORY [facility] Specimen Blood - Venous blood specime n (specimen) Performing Organization Address [facility] de Phone Number LABORATORY [facility] [address] [place] [address] * GLUCOSE METER, POINT OF CARE (06/09/2022 7:07 AM EDT) Glucose Meter 104 70 - 120 mg/dL [facility] Specimen Blood - Whole blood sample ( specimen) Performing Organization Address [facility] Co de Phone Number [facility] [address] [place] [address] * (ABNORMAL) GLUCOSE METER, POINT OF CARE (06/08/2022 9:17 PM EDT) Glucose Meter 153(H) 70 - 120 mg/dL [facility] [employer] Specimen Blood - Whole blood sample ( specimen) Performing Organization Address [facility] Co de Phone Number [facility] [address] [place] [address] * (ABNORMAL) GLUCOSE METER, POINT OF CARE (06/08/2022 4:15 PM EDT) Glucose Meter 121(H) 70 - 120 mg/dL [facility] Specimen Blood - Whole blood sample ( specimen) Performing Organization Address City/[facility]/ZIP Co de Phone Number [facility] [address] [place] [address] * (ABNORMAL) GLUCOSE METER, POINT OF CARE (06/08/2022 10:56 AM EDT) Glucose Meter 130(H) 70 - 120 mg/dL [facility] Specimen Blood - Whole blood sample ( specimen) Performing Organization Address [facility] Co de Phone Number [facility] [address] [place] [address] * (ABNORMAL) DIFFERENTIAL, AUTOMATED (06/08/2022 8:28 AM EDT) WBC 10.49 4.00 - 10.80 K/uL LAB[facility]ATORY [facility] Neutrophils % 59.3 40.0 - 75.0 % LAB[facility]ATORY [facility] Lymphocytes % 22.3 18.0 - 42.0 % [facility] Monocytes % 10.8 1.0 - 11.0 % LAB[facility]ORY [facility] Eosinophils % 6.3(H) 0.0 - 6.0 % LAB[facility]ORY [facility] Basophils % 0.4 0.0 - 2.0 % LAB[facility]ORY [facility] Immature Granulocytes % 0.9 0.0 - 2.0 % LAB[facility]ORY [facility] Absolute Neutrophils 6.23 1.80 - 7.70 K/uL [facility] Absolute Lymphocytes 2.34 1.00 - 4.80 K/ul [facility] Absolute Monocytes 1.13(H) 0.00 - 1.10 K/uL LAB[facility]ATORY [facility] Absolute Eosinophils 0.66 0.00 - 0.70 K/uL [facility] Absolute Basophils 0.04 0.00 - 0.20 K/uL LAB[facility]ORY [facility] Absolute Immature Granulocytes 0.09 0.00 - 0.20 K/uL LAB[facility]ORY [facility] Specimen Blood - Venous blood specime n (specimen) Performing Organization Address City/[facility]/ZIP Co de Phone Number LABORATORY [facility] [address] [place] [address] * (ABNORMAL) CBC (06/08/2022 8:28 AM EDT) WBC 10.49 4.00 - 10.80 K/uL LABORATORY [facility] RBC 3.59 3.85 - 5.15 M/uL LABORATORY [facility] HGB 9.7(L) 12.0 - 15.3 g/dL LABORATORY GM HCT 32.6(L) 36.0 - 45.2 % LABORATORY GM MCV 90.8 81.5 - 97.5 fL LABORATORY [facility] MCH 27.0 27.0 - 34.0 pg LABORATORY GM MCHC 29.8 32.0 - 36.0 g/dL LABORATORY [facility] RDW 15.7 11.5 - 15.5 % LABORATORY [facility] PLT 438(H) 140 - 400 K/uL LABORATORY [facility] MPV 9.4 6.6 - 11.1 fL LABORATORY [facility] nRBCs 0 <=0 /100 WBCs LAB[facility]ATORY [facility] Specimen Blood - Venous blood specime n (specimen) Performing Organization Address [facility] de Phone Number LABORATORY [facility] [address] [place] [address] * BASIC METABOLIC PANEL (06/08/2022 8:27 AM EDT) BUN 10 6 - 20 mg/dL LABORATORY [facility] Creatinine 0.9 0.5 - 1.0 mg/dL LABORATORY [facility] Estimated Glomerular Filtration Rate 64Comment:eGFR is calculated based on the CKD-EPI 2020 equation >=60 mL/min LABORATORY C Sodium 139 135 - 146 mmol/L LAB[facility]ATORY [facility] Potassium 3.9 3.5 - 5.1 mmol/L LABORATORY C Chloride 102 98 - 107 mmol/L LABORATORY C CO2 29 22 - 32 mmol/L LABORATORY C Anion Gap 8 7 - 15 mmol/L LABORATORY [facility] Glucose 115 70 - 120 mg/dL LABORATORY C Calcium 9.0 8.4 - 10.2 mg/dL LAB[facility]ORY [facility] Specimen Blood - Venous blood specime n (specimen) Performing Organization Address [facility] de Phone Number LABORATORY [facility] [address] [place], [place] [id number] * GLUCOSE METER, POINT OF CARE (06/08/2022 7:23 AM EDT) Glucose Meter 95 70 - 120 mg/dL [facility] Specimen Blood - Whole blood sample ( specimen) Performing Organization Address [facility] Co de Phone Number [facility] [address] [place] [address] * GLUCOSE METER, POINT OF CARE (06/07/2022 8:57 PM EDT) Glucose Meter 95 70 - 120 mg/dL [facility] Specimen Blood - Whole blood sample ( specimen) Performing Organization Address [facility] Co de Phone Number [facility] [address] [place] [address] * (ABNORMAL) GLUCOSE METER, POINT OF CARE (06/07/2022 4:14 PM EDT) Glucose Meter 180(H) 70 - 120 mg/dL [facility] Specimen Blood - Whole blood sample ( specimen) Performing Organization Address [facility] Co de Phone Number [facility] [address] [place] [address] * (ABNORMAL) GLUCOSE METER, POINT OF CARE (06/07/2022 11:08 AM EDT) Glucose Meter 144(H) 70 - 120 mg/dL [facility] Specimen Blood - Whole blood sample ( specimen) Performing Organization Address [facility] de Phone Number [facility] [address] [place] [address] * GLUCOSE METER, POINT OF CARE (06/07/2022 7:39 AM EDT) Glucose Meter 91 70 - 120 mg/dL [facility] Specimen Blood - Whole blood sample ( specimen) Performing Organization Address [facility] Co de Phone Number [facility] [address] [place] [address] * (ABNORMAL) DIFFERENTIAL, AUTOMATED (06/07/2022 6:28 AM EDT) WBC 9.21 4.00 - 10.80 K/uL LAB[facility]ATORY [facility] Neutrophils % 51.1 40.0 - 75.0 % LAB[facility]ATORY [facility] Lymphocytes % 28.1 18.0 - 42.0 % LAB[facility]ATORY [facility] Monocytes % 11.1(H) 1.0 - 11.0 % LABORATORY [facility] Eosinophils % 8.1(H) 0.0 - 6.0 % LAB[facility]ATORY [facility] Basophils % 0.7 0.0 - 2.0 % LAB[facility]ATORY [facility] Immature Granulocytes % 0.9 0.0 - 2.0 % LAB[facility]ATORY [facility] Absolute Neutrophils 4.71 1.80 - 7.70 K/uL [facility] Absolute Lymphocytes 2.59 1.00 - 4.80 K/ul [facility] Absolute Monocytes 1.02 0.00 - 1.10 K/uL LAB[facility]ORY [facility] Absolute Eosinophils 0.75(H) 0.00 - 0.70 K/uL [facility] Absolute Basophils 0.06 0.00 - 0.20 K/uL LAB[facility]ATORY [facility] Absolute Immature Granulocytes 0.08 0.00 - 0.20 K/uL LAB[facility]ORY [facility] Specimen Blood - Venous blood specime n (specimen) Performing Organization Address [facility] de Phone Number LAB[facility]ATORY [facility] [address] [place] [address] * (ABNORMAL) CBC (06/07/2022 6:28 AM EDT) WBC 9.21 4.00 - 10.80 K/uL LAB[facility]ATORY [facility] RBC 3.25 3.85 - 5.15 M/uL LAB[facility] HGB 8.8(L) 12.0 - 15.3 g/dL [facility] HCT 29.1(L) 36.0 - 45.2 % LAB[facility]ORY [facility] MCV 89.5 81.5 - 97.5 fL LAB[facility]ORY [facility] MCH 27.1 27.0 - 34.0 pg LAB[facility]ATORY [facility] MCHC 30.2 32.0 - 36.0 g/dL [facility] RDW 15.6 11.5 - 15.5 % LAB[facility]ATORY [facility] PLT 426(H) 140 - 400 K/uL LAB[facility]ORY [facility] MPV 9.2 6.6 - 11.1 fL LAB[facility]ATORY [facility] nRBCs 0 <=0 /100 WBCs LABORATORY [facility] Specimen Blood - Venous blood specime n (specimen) Performing Organization Address [facility] de Phone Number LABORATORY [facility] [address] [place] [address] * (ABNORMAL) BASIC METABOLIC PANEL (06/07/2022 6:28 AM EDT) BUN 12 6 - 20 mg/dL [facility] Creatinine 1.2(H) 0.5 - 1.0 mg/dL LABORATORY [facility] Estimated Glomerular Filtration Rate 46(L)Comment:eGFR is calculated based on the CKD-EPI 2020 equation >=60 mL/min LABORATORY C Sodium 138 135 - 146 mmol/L LAB[facility]ORY [facility] Potassium 3.5 3.5 - 5.1 mmol/L [facility] Chloride 101 98 - 107 mmol/L [facility] CO2 30 22 - 32 mmol/L LABORATORY C Anion Gap 7 7 - 15 mmol/L LABORATORY C Glucose 115 70 - 120 mg/dL LABORATORY C Calcium 8.5 8.4 - 10.2 mg/dL LABORATORY [facility] Specimen Blood - Venous blood specime n (specimen) Performing Organization Address [facility] de Phone Number LABORATORY [facility] [address] [place] [address] * (ABNORMAL) HEMOGLOBIN A1C (06/07/2022 6:28 AM EDT) Hemoglobin A1C 6.8(H)Comment:The use of HbA1c to monitor glycemic status is based on normal hemoglobin and HbA composition. This test should not be used in patients with abnormal hemoglobin that affects the half life of the red blood cell or the in vivo glycation rates. 4.0 - 5.6 % LABORATORY [facility] Estimated Average Glucose 148(H) <126 mg/dL LABORATORY [facility] Specimen Blood - Venous blood specime n (specimen) Performing Organization Address [facility] de Phone Number LABORATORY [facility] [address] [place] [address] * (ABNORMAL) GLUCOSE METER, POINT OF CARE (06/06/2022 9:26 PM EDT) Glucose Meter 134(H) 70 - 120 mg/dL [facility] [employer] [employer] Specimen Blood - Whole blood sample ( specimen) Performing Organization Address [facility] de Phone Number [facility] [address] [place] [address] * GLUCOSE METER, POINT OF CARE (06/06/2022 4:43 PM EDT) Glucose Meter 94 70 - 120 mg/dL [facility] Specimen Blood - Whole blood sample ( specimen) Performing Organization Address [facility]/ZIP Co de Phone Number [facility] [address] [place] [address] * ABO/RH (06/06/2022 12:49 PM EDT) ABO O LABORATORY [facility] Rh Positive LAB[facility]ATORY [facility] Specimen Blood - Venous blood specime n (specimen) Performing Organization Address [facility] Co de Phone Number LABORATORY [facility] [address] [place] [address] * (ABNORMAL) DIFFERENTIAL, AUTOMATED (06/06/2022 12:49 PM EDT) WBC 15.12(H) 4.00 - 10.80 K/uL LABORATORY [facility] Neutrophils % 69.6 40.0 - 75.0 % LAB[facility]ATORY [facility] Lymphocytes % 17.3(L) 18.0 - 42.0 % LAB[facility]ATORY [facility] Monocytes % 8.7 1.0 - 11.0 % LAB[facility]ATORY [facility] Eosinophils % 2.9 0.0 - 6.0 % LAB[facility]ORY [facility] Basophils % 0.4 0.0 - 2.0 % LAB[facility]ORY [facility] Immature Granulocytes % 1.1 0.0 - 2.0 % LAB[facility]ATORY [facility] Absolute Neutrophils 10.52(H) 1.80 - 7.70 K/uL [facility] Absolute Lymphocytes 2.61 1.00 - 4.80 K/ul [facility] Absolute Monocytes 1.32(H) 0.00 - 1.10 K/uL LABORATORY [facility] Absolute Eosinophils 0.44 0.00 - 0.70 K/uL [facility] Absolute Basophils 0.06 0.00 - 0.20 K/uL LAB[facility]ATORY [facility] Absolute Immature Granulocytes 0.17 0.00 - 0.20 K/uL LABORATORY C Specimen Blood - Venous blood specime n (specimen) Performing Organization Address [facility]/ZIP Co de Phone Number LABORATORY [facility] [address] [place] [address] * (ABNORMAL) CBC (06/06/2022 12:49 PM EDT) WBC 15.12(H) 4.00 - 10.80 K/uL LAB[facility]ATORY [facility] RBC 3.78 3.85 - 5.15 M/uL LAB[facility]ORY [facility] HGB 10.4(L) 12.0 - 15.3 g/dL [facility] HCT 34.2(L) 36.0 - 45.2 % LABORATORY [facility] MCV 90.5 81.5 - 97.5 fL LABORATORY [facility] MCH 27.5 27.0 - 34.0 pg LABORATORY [facility] MCHC 30.4 32.0 - 36.0 g/dL LABORATORY [facility] RDW 15.6 11.5 - 15.5 % LABORATORY [facility] PLT 546(H) 140 - 400 K/uL LABORATORY [facility] MPV 9.1 6.6 - 11.1 fL LABORATORY [facility] nRBCs 0 <=0 /100 WBCs LABORATORY [facility] Specimen Blood - Venous blood specime n (specimen) Performing Organization Address [facility] de Phone Number LABORATORY [facility] [address] [place] [address] * (ABNORMAL) BASIC METABOLIC PANEL (06/06/2022 12:49 PM EDT) BUN 11 6 - 20 mg/dL LABORATORY [facility] Creatinine 0.9 0.5 - 1.0 mg/dL LABORATORY [facility] Estimated Glomerular Filtration Rate 63Comment:eGFR is calculated based on the CKD-EPI 2020 equation >=60 mL/min LABORATORY C Sodium 137 135 - 146 mmol/L LABORATORY [facility] Potassium 3.2(L) 3.5 - 5.1 mmol/L LABOR[facility]ORY [facility] Chloride 101 98 - 107 mmol/L LABORATORY C CO2 24 22 - 32 mmol/L LABORATORY [facility] Anion Gap 12 7 - 15 mmol/L LABORATORY [facility] Glucose 144(H) 70 - 120 mg/dL LABOR[facility]ORY [facility] Calcium 9.0 8.4 - 10.2 mg/dL LABORATORY [facility] Specimen Blood - Venous blood specime n (specimen) Performing Organization Address [facility] de Phone Number LABORATORY [facility] [address] [place] [address] * TYPE AND SCREEN (06/06/2022 12:49 PM EDT) ABO O LABORATORY [facility] Rh Positive LABORATORY [facility] Red Blood Cell Antibody Screen Negative LABORATORY [facility] Specimen Expiration Date 06/09/2022 23:59 LABORATORY [facility] Specimen Blood - Venous blood specime n (specimen) Performing Organization Address [facility] de Phone Number LABORATORY [facility] [address] [place] [address] documented in this encounter Visit Diagnoses Diagnosis Diverticulitis of colon- Primary Diverticulitis of colon (without mention of hemorrhage) Diverticulitis of colon with perforation Diverticulitis of colon (without mention of hemorrhage) Type 2 diabetes mellitus with stage 3a chronic kidney disease, without long-term current use of insulin (HCC) Chronic kidney disease, stage 3a (HCC) Chronic systolic heart failure (HCC) Chronic systolic heart failure Paroxysmal atrial fibrillation (HCC) Atrial fibrillation COPD, group B, 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 ([facility]) Gastro-esophageal reflux disease without esophagitis Esophageal reflux HECTOR (generalized anxiety disorder) Generalized anxiety disorder Type 2 diabetes mellitus with hemoglobin A1c goal of less than 7.5% ([facility]) documented in this encounter Administered Medications Inactive Administered Medications - up to 3 most recent administrations Medication Order MAR Action Action Date Dose Rate Site Acetaminophen (Tylenol) tab 975 mg 975 mg, Oral, Q6H, First dose on Mary Carmen 06/06/22 at 1315, Until Discontinued, Maximum of 4 grams (4000 mg) per day. Given 06/10/2022 7:51 AM EDT 975 mg documented in this encounter Active and Recently Administered Medications Times are shown in EDT. Scheduled Medication Order 06/08/2022 06/09/2022 06/10/2022 Acetaminophen (Tylenol) tab 975 mg 975 mg, Oral, Q6H, First dose on Mary Carmen 06/06/22 at 1315, Until Discontinued, Maximum of 4 grams (4000 mg) per day. 0043 (Given - Provider: Juany Oleary RN)0609 (Given - Provider: Juany Oleary RN)1256 (Given - Provider: Vilma Reed RN)1818 (Given - Provider: Vilma Reed RN) 0016 (Given - Provider: Juany Oleary RN)0556 (Given - Provider: Juany Oleary RN)1242 (Given - Provider: Vilma Reed RN)1830 (Given - Provider: Vilma Reed RN) 0025 (Given - Provider: Sigrid Myers, BIJAL)0751 (Given - Provider: Sigrid Myers, BIJAL)1200 (Due) aspirin chew tab 81 mg 81 mg, Oral, DAILY, First dose on Fri06/07/22 at 1230, Until Discontinued 919 (Given - Provider: Vilma Reed RN) 908 (Given - Provider: Vilma Reed RN) 940 (Given - Provider: Donna Rios, RN) atorvaSTATin (Lipitor) tab 40 mg 40 mg, Oral, DAILY, First dose on Fri06/07/22 at 0900, Until Discontinued 2122 (Given - Provider: Juany Oleary, RN - Comment: Pt request) 2219 (Given - Provider: Sigrid Myers, BIJAL) 940 (Given - Provider: Donna Rios, RN) ciprofloxacin (Cipro) tab 500 mg 500 mg, Oral, Q12H, First dose on Fri06/07/22 at 1045, Last dose on Fri06/11/22 at 2100, For 5 days, Hold antacids and iron for 3-4 hours before and after administration. 920 (Given - Provider: Vilma Reed RN)2122 (Given - Provider: Juany Oleary RN) 906 (Given - Provider: Vilma Reed RN)2099 (Given - Provider: Sigrid Myers, BIJAL) 940 (Given - Provider: Donna Rios, RN) Enoxaparin (Lovenox) inj 40 mg 40 mg, Subcutaneous, [id number], First dose on Fri06/07/22 at 1000, Until Discontinued, If patient is on warfarin, inform provider if daily INR value is 2 or greater! 923 (Not Given - Provider: Vilma Reed RN - Reason: Refused-Notify Provider - Comment: Sent text to Dr Sundeep Melara) 904 (Not Given - Provider: Vilma Reed RN - Reason: Refused-Notify Provider - Comment: Sent text to Dr Giovanny iHcks) 09 (Not Given - Provider: Donna Rios, RN - Reason: Refused-Notify Provider) insulin aspart (NovoLOG) inj Subcutaneous, W/MEALS AND HS, First dose on Fri06/06/22 at 1700, Until Discontinued, MEDIUM DOSE (Usual starting dose): [...] suggested insulin dose and call covering provider. 0920 (Not Given - Provider: Vilma Reed RN - Reason: Parameter(s) Not Met)1138 (Not Given - Provider: Vilma Reed RN - Reason: Parameter(s) Not Met)1640 (Not Given - Provider: Vilma Reed RN - Reason: Parameter(s) Not Met)2124 (Given - Provider: Juany Oleary, BIJAL) 0905 (Not Given - Provider: Vilma Reed RN - Reason: Parameter(s) Not Met)1241 (Not Given - Provider: Vilma Reed RN - Reason: Parameter(s) Not Met)1637 (Given - Provider: Vilma Reed RN)2200 (Not Given - Provider: Sigrid Myers RN - Reason: Parameter(s) Not Met) 0800 (Not Given - Provider: Sigrid Myers RN - Reason: Parameter(s) Not Met)1200 (Due) Ipratropium-Albuterol (Combivent Respimat) inhaler 1 Puff 1 Puff, Inhalation, RESPQID, First dose on Mary Carmen 06/06/22 at 1600, Until Discontinued, NURSING TO FOLLOW PATIENT WITH MDI/DPI ADMINISTRATION Shake well before use! WASTE INFO ( IF NOT SENT HOME WITH PATIENT) : Return unused medication to pharmacy in zip lock bag for disposal into black container labeled SP. 0925 (Given - Provider: Vilma Reed RN)1256 (Given - Provider: Vilma Reed RN)1704 (Given - Provider: Vilma Reed RN)2124 (Given - Provider: Juany Oleary, BIJAL) 0905 (Given - Provider: Vilma Reed RN)1241 (Given - Provider: Vilma Reed RN)1637 (Given - Provider: Vilma Reed RN)2105 (Given - Provider: Sigrid Myers RN) 0800 (Due)1200 (Due) methIMAzole (Tapazole) tab 10 mg 10 mg, Oral, DAILY, First dose on Fri06/07/22 at 0900, Until Discontinued 09 (Given - Provider: Vilma Reed RN) 09 (Given - Provider: Vilma Reed RN) 09 (Given - Provider: Donna Rios, RN) Metoprolol Tartrate (Lopressor) tab 12.5 mg 12.5 mg, Oral, Q12H, First dose on Fri06/06/22 at 2100, Until Discontinued, Hold for HR less than 60 or SBP below 100 and notify service if dose is held 09 (Given - Provider: Vilma Reed RN)2099 (Not Given - Provider: Juany Oleary RN - Reason: Parameter(s) Not Met) 09 (Given - Provider: Vilma Reed RN)2099 (Not Given - Provider: Sigrid Myers RN - Reason: Parameter(s) Not Met) 0942 (Given - Provider: Donna Rios, BIJAL) metroNIDAZOLE (Flagyl) tab 500 mg 500 mg, Oral, Q8H, First dose on Fri06/07/22 at 1400, Last dose on Fri06/12/22 at 0600, For 5 days 0609 (Given - Provider: Juany Oleary RN)1426 (Given - Provider: Vilma Reed RN)2123 (Given - Provider: Juany Oleary RN) 0556 (Given - Provider: Juany Oleary RN)1524 (Given - Provider: Vilma Reed RN)2220 (Given - Provider: Sigrid Myers, BIJAL) 0751 (Given - Provider: Sigrid Myers, BIJAL) omeprazole (PriLOSEC) cap 20 mg 20 mg, Oral, BID, First dose on Fri06/06/22 at 2100, Until Discontinued, This med should NOT be Crushed or Chewed 0043 (Given - Provider: Juany Oleary RN - Comment: staggered for abx)0920 (Given - Provider: Vilma Reed RN) 0016 (Given - Provider: Juany Oleary RN)09 (Given - Provider: Vilma Reed RN)2099 (Given - Provider: Sigrid Myers RN) 0941 (Given - Provider: Donna Rios, RN) potassium chloride ER tab 40 mEq (COMPLETED) 40 mEq, Oral, ONCE, On Fri06/10/22 at 1015, For 1 dose, This med should NOT be Crushed or Chewed 0952 (Given - Provider: Donna Rios, RN) sertraline (Zoloft) tab 25 mg 25 mg, Oral, DAILY, First dose on Fri06/07/22 at 0900, Until Discontinued 09 (Given - Provider: Vilma Reed RN) 09 (Given - Provider: Vilma Reed RN) 0942 (Given - Provider: Donna Rios, RN) Zafirlukast (Accolate) tab 20 mg 20 mg, Oral, DAILY, First dose on Fri06/07/22 at 0900, Until Discontinued 924 (Given - Provider: Vilma Reed RN) 09 (Given - Provider: Vilma Reed RN) 0944 (Given - Provider: Donna Rios, RN) PRN Medication Order 06/08/2022 06/09/2022 06/10/2022 Albuterol Sulfate (Proventil) (2.5 MG/3ML) 0.083% inhalation solution 2.5 mg 2.5 mg, Nebulizer, Q4H PRN Dyspnea, Starting on Fri06/06/22 at 1359, Until Fri06/10/22 at 1639 dextrose 50 % inj 25 mL 25 mL, IV Push, PRN Hypoglycemia, Other, For blood glucose 54 - 69 mg/dL or 70 - 100 mg/dL with symptoms AND patient is unresponsive, NPO, OR unable to swallow, Starting on Fri06/06/22 at 1522, Until Fri06/10/22 at 1639, Administer IV. Recheck blood glucose after 15 minutes. Notify provider. dextrose 50 % inj 50 mL 50 mL, IV Push, PRN Hypoglycemia, Other, For blood glucose below 54 mg/dL AND patient unresponsive, NPO, OR unable to swallow, Starting on Fri06/06/22 at 1522, Until Fri06/10/22 at 1639, Administer IV. Recheck blood glucose in 15 minutes. Notify provider. glucagon (Glucagen) inj 1 mg 1 mg, Intramuscular, PRN Hypoglycemia, Other, If patient is unresponsive, or NPO and has no IV access, Starting on Fri06/06/22 at 1522, Until Fri06/10/22 at 1639, NPO and no IV access with either [...] patient alert WITH difficulty chewing/swallowing, Starting on Fri06/06/22 at 1522, Until Fri06/10/22 at 1639, Administer gel. Recheck blood glucose after 15 minutes. Notify provider. 37.5 gram tube = 15 grams glucose = 1 each Glucose (Glutose 15) 40 % gel 30 g of glucose 30 g of glucose, Oral, PRN Hypoglycemia (low sugar), Other, For blood glucose below 54 mg/dL AND patient alert WITH difficulty chewing/swallowing, Starting on Fri06/06/22 at 1522, Until Fri06/10/22 at 1639, Administer gel. Recheck blood glucose after 15 minutes. Notify provider. 37.5 gram tube = 15 grams glucose = 1 each glucose chew tab 16 g 16 g, Oral, PRN Hypoglycemia, Other, For blood glucose 54 - 69 mg/dL or 70 - 100 mg/dL with symptoms and patient alert without difficulty chewing/swallowing., Starting on Fri06/06/22 at 1522, Until Fri06/10/22 at 1639 ondansetron (Zofran) inj 4 mg 4 mg, IV Push, Q4H PRN Nausea, Starting on Fri06/06/22 at 1231, Until Fri06/10/22 at 1639 1138 (Given - Provider: Vilma Reed RN) oxyCODONE (Oxy IR) tab 10 mg 10 mg, Oral, Q4H PRN Pain, Severe, Starting on Fri06/06/22 at 1231, Until Fri06/10/22 at 1639 oxyCODONE (Oxy IR) tab 5 mg 5 mg, Oral, Q4H PRN Pain, Moderate, Starting on Fri06/06/22 at 1231, Until Fri06/10/22 at 1639 1707 (Given - Provider: Vilma Reed RN)213 (Given - Provider: Juany Oleary RN) 1531 (Given - Provider: Vilma Reed RN)503 (Given - Provider: Sigrid Myers RN) 1056 (Given - Provider: Sigrid Myers RN)9519 (Given - Provider: Donna Rios RN) documented in this encounter Advance Directives Documents on File Type Date Recorded Patient Sample Prep Technician Expl 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 occurred with: Not Discussed Care Teams Talent Specialist Relationship Specialty Start Date End Date Marcela Pinto MD [address] [place] [address] PCP - General Internal Medicine 08/04/14 documented as of this encounter
--- OUTSIDE RECORDS SUMMARY | 2023-06-18 02:47 | External Medical Summary ---
Author Name Unknown Address Unknown Organization : Laboratory Report Ordering Provider Test Date Status NADIRA GURROLA 06/09/2022 16:32:42 Final Observation Date Value Abnormality Reference (Units ) Status Glucose Point of Care 06/09/2022 16:32:42 162 Above high normal 70-120 (mg/dL) Final Performing Location
--- OUTSIDE RECORDS SUMMARY | 2023-06-18 02:47 | External Medical Summary ---
Author Name Unknown Address Unknown Organization [id number]:LABORATORY [facility] [place] - [address] [place] [address] Laboratory Report Ordering Provider Test Date Status AMI GRADY 06/10/2022 07:11:00 Final Observation Date Value Abnormality Reference (Units ) Status BUN 06/10/2022 07:11:00 7 6-20 (mg/dL) Final Creatinine 06/10/2022 07:11:00 0.7 0.5-1.0 (mg/dL) Final Glomerular filtration rate/1.73 sq M.predicted [Volume Rate/Area] in Serum, Plasma or Blood by Creatinine-based formula (CKD-EPI) 06/10/2022 07:11:00 82 >=60 (mL/min) Final Performing Location LABORATORY C - [address] [facility] [address]
--- OUTSIDE RECORDS SUMMARY | 2023-06-18 02:47 | External Medical Summary ---
Author Name Unknown Address Unknown Organization : Laboratory Report Ordering Provider Test Date Status NADIRA GURROLA 06/09/2022 21:58:22 Final Observation Date Value Abnormality Reference (Units ) Status Glucose Point of Care 06/09/2022 21:58:22 128 Above high normal 70-120 (mg/dL) Final Performing Location
--- OUTSIDE RECORDS SUMMARY | 2023-06-18 02:47 | External Medical Summary ---
Author Name Unknown Address Unknown Organization [id number]:[place]ORY [facility] [place] [facility] [address] [facility] [address] Laboratory Report Ordering Provider Test Date Status AMI GRADY 06/08/2022 08:28:00 Final Observation Date Value Abnormality Reference (Units ) Status WBC, Total 06/08/2022 08:28:00 10.49 4.00-10.80 (K/uL) Final RBC 06/08/2022 08:28:00 3.59 3.85-5.15 (M/uL) Final Hemoglobin 06/08/2022 08:28:00 9.7 Below low normal 12.0-15.3 (g/dL) Final HCT 06/08/2022 08:28:00 32.6 Below low normal 36.0-45.2 (%) Final MCV 06/08/2022 08:28:00 90.8 81.5-97.5 (fL) Final MCH 06/08/2022 08:28:00 27.0 27.0-34.0 (pg) Final MCHC 06/08/2022 08:28:00 29.8 32.0-36.0 (g/dL) Final RDW 06/08/2022 08:28:00 15.7 11.5-15.5 (%) Final Platelets 06/08/2022 08:28:00 438 Above high normal 140-400 (K/uL) Final MPV 06/08/2022 08:28:00 9.4 6.6-11.1 (fL) Final Nucleated erythrocytes/100 leukocytes [Ratio] in Blood by Automated count 06/08/2022 08:28:00 0 <=0 (/100 WBCs) Final Performing Location LAB[facility]ATORY [facility] [place] - [address] [place] [address]
--- OUTSIDE RECORDS SUMMARY | 2023-06-18 02:47 | External Medical Summary ---
Author Name Unknown Address Unknown Organization : Laboratory Report Ordering Provider Test Date Status NADIRA GURROLA 06/08/2022 16:15:31 Final Observation Date Value Abnormality Reference (Units ) Status Glucose Point of Care 06/08/2022 16:15:31 121 Above high normal 70-120 (mg/dL) Final Performing Location
--- OUTSIDE RECORDS SUMMARY | 2023-06-18 02:47 | External Medical Summary ---
Author Name Unknown Address Unknown Organization [id number]:[place] [facility] [place] [facility] [address] [facility] [address] Laboratory Report Ordering Provider Test Date Status AMI GRADY 06/09/2022 08:36:00 Final Observation Date Value Abnormality Reference (Units ) Status WBC, Total 06/09/2022 08:36:00 9.08 4.00-10.80 (K/uL) Final RBC 06/09/2022 08:36:00 3.36 3.85-5.15 (M/uL) Final Hemoglobin 06/09/2022 08:36:00 9.2 Below low normal 12.0-15.3 (g/dL) Final HCT 06/09/2022 08:36:00 30.5 Below low normal 36.0-45.2 (%) Final MCV 06/09/2022 08:36:00 90.8 81.5-97.5 (fL) Final MCH 06/09/2022 08:36:00 27.4 27.0-34.0 (pg) Final MCHC 06/09/2022 08:36:00 30.2 32.0-36.0 (g/dL) Final RDW 06/09/2022 08:36:00 15.9 11.5-15.5 (%) Final Platelets 06/09/2022 08:36:00 415 Above high normal 140-400 (K/uL) Final MPV 06/09/2022 08:36:00 9.1 6.6-11.1 (fL) Final Nucleated erythrocytes/100 leukocytes [Ratio] in Blood by Automated count 06/09/2022 08:36:00 0 <=0 (/100 WBCs) Final Performing Location [place] [facility] [place] [address] [facility] [address]
--- OUTSIDE RECORDS SUMMARY | 2023-06-18 02:47 | External Medical Summary ---
Author Name Unknown Address Unknown Organization [id number]:[place] [facility] [place] [address] [place] [address] Laboratory Report Ordering Provider Test Date Status AMI GRADY 06/09/2022 08:37:00 Final Observation Date Value Abnormality Reference (Units ) Status BUN 06/09/2022 08:37:00 9 6-20 (mg/dL) Final Creatinine 06/09/2022 08:37:00 0.8 0.5-1.0 (mg/dL) Final Glomerular filtration rate/1.73 sq M.predicted [Volume Rate/Area] in Serum, Plasma or Blood by Creatinine-based formula (CKD-EPI) 06/09/2022 08:37:00 79 >=60 (mL/min) Final Performing Location LABORATORY C - [address] [facility] [address]
--- OUTSIDE RECORDS SUMMARY | 2023-06-18 02:47 | External Medical Summary ---
Author Name Unknown Address Unknown Organization : Laboratory Report Ordering Provider Test Date Status NADIRA GURROLA 06/08/2022 10:56:11 Final Observation Date Value Abnormality Reference (Units ) Status Glucose Point of Care 06/08/2022 10:56:11 130 Above high normal 70-120 (mg/dL) Final Performing Location
--- OUTSIDE RECORDS SUMMARY | 2023-06-18 02:47 | External Medical Summary ---
Author Name Unknown Address Unknown Organization K01:LABORATORY [facility] [place] - [facility] [address] [facility] [address] Laboratory Report Ordering Provider Test Date Status AMI GRADY 06/10/2022 07:11:00 Final Observation Date Value Abnormality Reference (Units ) Status WBC, Total 06/10/2022 07:11:00 8.73 4.00-10.80 (K/uL) Final RBC 06/10/2022 07:11:00 3.37 3.85-5.15 (M/uL) Final Hemoglobin 06/10/2022 07:11:00 9.1 Below low normal 12.0-15.3 (g/dL) Final HCT 06/10/2022 07:11:00 30.2 Below low normal 36.0-45.2 (%) Final MCV 06/10/2022 07:11:00 89.6 81.5-97.5 (fL) Final MCH 06/10/2022 07:11:00 27.0 27.0-34.0 (pg) Final MCHC 06/10/2022 07:11:00 30.1 32.0-36.0 (g/dL) Final RDW 06/10/2022 07:11:00 16.0 11.5-15.5 (%) Final Platelets 06/10/2022 07:11:00 410 Above high normal 140-400 (K/uL) Final MPV 06/10/2022 07:11:00 9.0 6.6-11.1 (fL) Final Nucleated erythrocytes/100 leukocytes [Ratio] in Blood by Automated count 06/10/2022 07:11:00 0 <=0 (/100 WBCs) Final Performing Location LABORATORY [facility] [place] - [address] [place] [address]
--- OUTSIDE RECORDS SUMMARY | 2023-06-18 02:47 | External Medical Summary ---
Author Name Unknown Address Unknown Organization K01:[place]ORY [facility] [place] - [address] [place] [address] Laboratory Report Ordering Provider Test Date Status AMI GRADY 06/10/2022 07:11:00 Final Observation Date Value Abnormality Reference (Units ) Status SYNC LEUKOCYTES IN BLOOD BY AUTOMATED COUNT 06/10/2022 07:11:00 8.73 4.00-10.80 (K/uL) Final Segs 06/10/2022 07:11:00 50.4 40.0-75.0 (%) Final Lymphs % 06/10/2022 07:11:00 27.1 18.0-42.0 (%) Final Monos 06/10/2022 07:11:00 11.7 Above high normal 1.0-11.0 (%) Final Eosinophils 06/10/2022 07:11:00 9.2 Above high normal 0.0-6.0 (%) Final Basos 06/10/2022 07:11:00 0.5 0.0-2.0 (%) Final Immature Granulocyte, Percent 06/10/2022 07:11:00 1.1 0.0-2.0 (%) Final Absolute Segs 06/10/2022 07:11:00 4.40 1.80-7.70 (K/uL) Final Lymphs, absolute 06/10/2022 07:11:00 2.37 1.00-4.80 (K/ul) Final Monos, Abs 06/10/2022 07:11:00 1.02 0.00-1.10 (K/uL) Final Eos, Abs 06/10/2022 07:11:00 0.80 Above high normal 0.00-0.70 (K/uL) Final Basos, Abs 06/10/2022 07:11:00 0.04 0.00-0.20 (K/uL) Final Immature Granulocytes, Number 06/10/2022 07:11:00 0.10 0.00-0.20 (K/uL) Final Performing Location LAB[place]ORY [facility] [place] - [facility] [address] [facility] [address]
--- OUTSIDE RECORDS SUMMARY | 2023-06-18 02:47 | External Medical Summary ---
Author Name Unknown Address Unknown Organization : Laboratory Report Ordering Provider Test Date Status NADIRA GURROLA 06/09/2022 07:07:55 Final Observation Date Value Abnormality Reference (Units ) Status Glucose Point of Care 06/09/2022 07:07:55 104 70-120 (mg/dL) Final Performing Location
--- OUTSIDE RECORDS SUMMARY | 2023-06-18 02:47 | External Medical Summary | Summary of Care ---
Author Name Unknown Organization [place] [address] Care Team Providers Care Grades 9 Thru 12 Visiting Teacher Name Role Phone Marcela Pinto MD Primary Care Provider + Reason for Visit * Reason Onset Date Comments Hospital Follow-Up 06/11/2022 Encounter Details Date Type Department Care Team Description 06/11/2022 Telephone Family Practice [facility] [address] [place], [place] [id number] Mirlande Fleming RN Hospital Follow-Up Allergies Active Allergy Reactions Severity Noted Date Comments Valsartan 07/10/2010 Enalapril 05/21/2006 Escitalopram Oxalate Nausea/vomiting 10/11/2009 Nauseated Iodinated Diagnostic Agents Nausea/vomiting 05/2010 IV Contrast Iodine Hives 12/18/2009 IV Contrast Metoprolol Tartrate 11/18/2006 Made pulse low [place] Oil-Black Currant-Vit E 07/10/2010 Verapamil 03/21/2004 Bupropion [...] with severity to be determined,COPD, moderate ([facility]) USE ONE NEBULIZER TREATMENT TWICE A DAY DIRECTED FOR WORSENING ASTHMA. J45.909, J44.9 225 mL 1 06/29/2019 Active Albuterol Sulfate (VENTOLIN HFA) 108 (90 Base) MCG/ACT AERS Inhale 2 Puffs by mouth 2 times a day. 0 12/27/2019 Active Lancets MISCIndications:Type 2 diabetes mellitus with hemoglobin A1c goal of less than 7.0% ([facility]) Use as directed. USE [...] Respimat 1.25 MCG/ACT Inhalation Aerosol Solution (Tiotropium [place] Monohydrate) Inhale by mouth. 0 Active Furosemide [...] with severity to be determined,COPD, moderate ([facility]) TAKE 1 PUFF BY [...] morning. 30 Tablet 5 02/19/2022 Active OneTouch Vermichelle In Vitro Strip (Glucose [...] Hypoxemia 10/08/2011 10/30/2015 Genetic Sleep Disorder Research Other*[id number] 07/25/2011 05/15/2016 COPD, moderate 07/19/2011 07/28/2019 Overview: [...] mRNA, LNP-s, No Pre serve, 2-Dose Series ([employer]) 08/21/2021,12/22/2020,2020 COVID-19, LNP-s, No Preserve , Tyler-sucrose, [...] Miscellaneous Notes * Telephone Encounter - Mirlande Fleming RN - 06/11/2022 8:06 AM EDT No transition of care call needed, patient was surgical patient and is following up with general surgery. No PCP follow-up needed per d/c summary and instructions. documented in this encounter Plan of Treatment Upcoming Encounters Date Type Specialty Care Team Description 06/19/2022 Office Visit General Surgery Teresita Padron, PA-C [address] [place] [address] 06/25/2022 Office Visit Cardiology Hammad Lopez DO [address] [facility] [place] [address] 07/11/2022 Office Visit Hematology Oncology Ida Cueva CRNP [address] [facility] [place] [address] Health Maintenance Due [...] Additional history exists CKD PHOS USE SMARTSET 05320 02/19/202302/10, 03/09/2021, 03/22/2019 DIABETES-EYE EXAM 03/08/2023 03/08/2022, , 08/07/2020, Additional history exists CKD HGB USE SMARTSET 70363 06/10/202306/10, 06/10/2022, 06/09/2022, Additional history exists O2 [...] Documents on File Type Date Recorded 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
--- OUTSIDE RECORDS SUMMARY | 2023-06-18 02:47 | External Medical Summary ---
Author Name Unknown Address Unknown Organization K01:LAB[place]ATORY [facility] [place] [facility] [place] [address] [place] [address] Laboratory Report Ordering Provider Test Date Status AMI GRADY 06/08/2022 08:27:00 Final Observation Date Value Abnormality Reference (Units ) Status BUN 06/08/2022 08:27:00 10 6-20 (mg/dL) Final Creatinine 06/08/2022 08:27:00 0.9 0.5-1.0 (mg/dL) Final Glomerular filtration rate/1.73 sq M.predicted [Volume Rate/Area] in Serum, Plasma or Blood by Creatinine-based formula (CKD-EPI) 06/08/2022 08:27:00 64 >=60 (mL/min) Final Performing Location LABORATORY C - [address] [facility] [address]
--- OUTSIDE RECORDS SUMMARY | 2023-06-18 02:48 | External Medical Summary | Summary of Care ---
Author Name Unknown Organization [place] [address] Care Team Providers Care Ice Guard Inspector Name Role Phone Marcela Pinto MD Primary Care Provider + Encounter Details Date Type Department Care Team Description 05/31/2022 Hospital Encounter Radiology Film File [address] [place], [place] [phone] Allergies Active Allergy Reactions Severity Noted Date Comments Valsartan 07/10/2010 Enalapril 05/21/2006 Escitalopram Oxalate Nausea/vomiting 10/11/2009 Nauseated Iodinated Diagnostic Agents Nausea/vomiting 05/2010 IV Contrast Iodine Hives 12/18/2009 IV Contrast Metoprolol Tartrate 11/18/2006 Made pulse low [place] Oil-Black Currant-Vit E 07/10/2010 Verapamil 03/21/2004 Bupropion Hcl 10/30/2009 Makes pt sick in the stomach documented as of this encounter (statuses as of 06/07/2022) Medications Medication Sig Dispensed Refills Start Date [...] and 4 LPM at night 0 Suspended polyethylene glycol 3350 (MIRALAX) 255 gram powder Take 17 g by mouth 2 times a day. One cap full in juice, to effect 1 stool per day. . 2 Bottle 3 6 Suspended Additional Information Multiple Vitamins-Minerals (ONE DAILY MULTIVITAMIN WOMEN) TABS [...] :Asthma with severity to be determined,COPD, moderate ([facility]) USE ONE NEBULIZER TREATMENT TWICE A DAY DIRECTED FOR WORSENING ASTHMA. J45.909, J44.9 225 mL 1 9 Suspended Additional Information Albuterol Sulfate (VENTOLIN HFA) 108 (90 Base) MCG/ACT AERS Inhale 2 Puffs by mouth 2 times a day. 0 0 Suspended Lancets MISCIndications:Typ e 2 diabetes mellitus with hemoglobin A1c goal of less than 7.0% ([facility]) Use as directed. USE TO TEST BLOOD SUGAR 3 TIMES A DAY FOR DIAGNOSIS CODE OF E11.9 300 Each 1 0 Suspended Additional Information ondansetron ODT (ZOFRAN) [address] 8 mg on tongue every 8 hours as needed for Nausea. dissolve on tongue. 0 Suspended CareSens N Voice System Device Use as directed. Tests three times daily/E11.9 0 Suspended CareSens N Glucose Test In Vitro Strip (Glucose Blood) Test as directed. Tests three times daily 0 Suspended Aspirin 81 MG Oral Tablet Delayed Release Take 81 mg by mouth daily. 0 1 Suspended Omeprazole 20 MG Oral Capsule Delayed Release (PriLOSEC)Indicatio ns:Ischemic colitis ([facility]) TAKE 1 CAPSULE BY MOUTH TWICE A DAY 180 Capsule 3 1 Suspended Additional Information Klor-Con M20 20 MEQ Oral Tablet Extended Release (Potassium Chloride Annalisa ER)Indications:HTN, goal below 140/90 TAKE 1 TABLET BY MOUTH EVERY DAY 90 Tablet 3 1 Suspended Additional Information Metoprolol Succinate ER 25 MG Oral Tablet Extended Release 24 Hour (toPROL XL)Indications:Carbon Accountant akin 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 135 Tablet 3 1 Suspended Additional Information Spiriva Respimat 1.25 MCG/ACT Inhalation Aerosol Solution (Tiotropium [place] Monohydrate) Inhale by mouth. 0 [address] Furosemide 40 MG Oral Tablet (Lasix)Indications: Chronic systolic heart failure (HCC),Paroxysmal atrial fibrillation (HCC),Chronic 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),NICM (nonischemic cardiomyopathy) (HCC),Chronic atrial fibrillation (HCC),Hospital discharge follow-up,Presence of Watchman left atrial appendage closure device Take 1.5 Tablets by mouth 2 times a day. 270 Tablet 1 2 Suspended Additional Information Lisinopril 2.5 MG Oral Tablet (Prinivil)Indicatio ns:Paroxysmal atrial fibrillation (HCC),Chronic systolic heart failure (HCC) Take by mouth 1 Tablet in the morning. 90 Tablet 3 2 Suspended Additional Information Ketoconazole 2 % External Cream APPLY TO GROIN AREA TWICE A DAY 60 g 11 2 Suspended Additional Information Spironolactone 25 MG Oral Tablet (Aldactone) Take by mouth 0.5 Tablets once a day on Friday, Friday, and Friday only . 45 Tablet 3 2 Suspended Additional Information Atorvastatin Calcium 40 MG Oral Tablet (Lipitor) Take by mouth 1 Tablet in the morning. 100 Tablet 3 2 Suspended Additional Information methIMAzole 10 MG Oral Tablet (Tapazole)Indicatio ns:Hyperthyroidism TAKE 1 TABLET BY MOUTH EVERY DAY 90 Tablet 1 2 Suspended Additional Information Ipratropium-Albuter ol 20-100 MCG/ACT Inhalation Aerosol Solution (Combivent Respimat)Indication s:Asthma with severity to be determined,COPD, moderate (HCC) TAKE 1 PUFF BY MOUTH 4 TIMES A DAY 12 g 1 2 Suspended Additional Information Glimepiride 2 MG Oral Tablet (Amaryl) TAKE 1 TABLET BY MOUTH EVERY DAY WITH BREAKFAST 90 Tablet 1 2 Suspended Additional Information Sertraline HCl 25 MG Oral Tablet (Zoloft)Indications :Major depressive disorder with single episode, in partial remission (HCC),HECTOR (generalized anxiety disorder) Take by mouth 1 Tablet in the morning. 30 Tablet 5 2 Suspended Additional Information Elda Sanches In Vitro Strip (Glucose Blood) [...] 60 Tablet 2 2 Suspended Additional Information predniSONE 50 MG Oral Tablet (Deltasone)Indicati ons:Lower abdominal pain,Diverticulitis of colon Take 1 tab 13 hrs before scan, take 1 tab 7 hrs before scan, take 1 tab 1 hr before scan with Benadryl 3 Tablet 0 2 Suspended Additional Information HYDROcodone-Acetami nophen 5-325 MG Oral TabletIndications:G eneralized osteoarthritis Take by mouth 1 Tablet every 6 hours as needed for Pain, Mild. 120 Tablet 0 2 Suspended Additional Information documented as of this encounter (statuses as of 06/07/2022) Active Problems Problem Noted Date Gastroparesis 05/13/2022 [...] as of this encounter (statuses as of 06/07/2022) Resolved Problems Problem Noted Date Resolved Date [...] Hypoxemia 10/08/2011 10/30/2015 Genetic Sleep Disorder Research Other*[id number] 07/25/2011 05/15/2016 COPD, moderate 07/19/2011 07/28/2019 Overview: [...] as of this encounter (statuses as of 06/07/2022) Immunizations Name Administration Dates Next Due COVID-19 mRNA, LNP-s, No Pre serve, 2-Dose Series ([employer]) 08/21/2021,12/22/2020,2020 COVID-19, LNP-s, No Preserve , Tyler-sucrose, [...] Office Visit Cardiology Hammad Lopez, DO [address] [facility] [place] [address] 07/11/2022 Office Visit Hematology Oncology Ida Cueva CRNP [address] [place] [address] Health Maintenance Due Date [...] Additional history exists GFR - Renal Function 12/08/2022 06/07/2022, 06/06/2022, 05/13/2022, Additional history exists Alb / Creat Ratio 02/19/2023 02/19/2022, , 07/27/2018, Additional history exists CKD PHOS USE SMARTSET 61753 02/19/202302/10, 03/09/2021, 03/22/2019 DIABETES-EYE EXAM 03/08/2023 03/08/2022, , 08/07/2020, Additional history exists O2 ASSESSMENT COMPLETED IN PAST YEAR FOR COPD 06/06/2023 06/07/2022 CKD HGB USE SMARTSET 85250 06/07/202306/07, 06/07/2022, 06/06/2022, Additional history exists DXA Scan 08/08/2025 08/08/2020, [...] - CT (IMAGES ONLY, NO REPORT) Routine 05/31/2022 4:15 PM EDT documented in this encounter Results * RADIOLOGY EXAM - CT (IMAGES ONLY, NO REPORT) (05/31/2022 4:15 PM EDT) Specimen Narrative Scheduling, Silent - 06/06/2022 11:06 PM EDT This is an imaging study not interpreted or resulted by a [facility] or [facility] contracted radiologist. 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
--- OUTSIDE RECORDS SUMMARY | 2023-06-18 02:48 | External Medical Summary ---
Author Name Unknown Address Unknown Organization K01:[place] [place] [facility] [place] [address] [place] [address] Laboratory Report Ordering Provider Test Date Status YSABEL,NEBIBIANA 06/06/2022 12:49:00 Final Observation Date Value Abnormality Reference (Units ) Status ABO 06/06/2022 12:49:00 O Final RH 06/06/2022 12:49:00 Positive Final RED BLOOD CELL ANTIBODY SCREEN 06/06/2022 12:49:00 Negative Final SPECIMEN EXPIRATION DATE 06/06/2022 12:49:00 06/09/2022 23:59 Final Performing Location [facility] [place] [address] [place] [address]
--- OUTSIDE RECORDS SUMMARY | 2023-06-18 02:48 | External Medical Summary ---
Author Name Unknown Address Unknown Organization K01:[place] [facility] [place] [facility] [address] [facility] [address] Laboratory Report Ordering Provider Test Date Status AMI GRADY 06/07/2022 06:28:00 Final Observation Date Value Abnormality Reference (Units ) Status WBC, Total 06/07/2022 06:28:00 9.21 4.00-10.80 (K/uL) Final RBC 06/07/2022 06:28:00 3.25 3.85-5.15 (M/uL) Final Hemoglobin 06/07/2022 06:28:00 8.8 Below low normal 12.0-15.3 (g/dL) Final HCT 06/07/2022 06:28:00 29.1 Below low normal 36.0-45.2 (%) Final MCV 06/07/2022 06:28:00 89.5 81.5-97.5 (fL) Final MCH 06/07/2022 06:28:00 27.1 27.0-34.0 (pg) Final MCHC 06/07/2022 06:28:00 30.2 32.0-36.0 (g/dL) Final RDW 06/07/2022 06:28:00 15.6 11.5-15.5 (%) Final Platelets 06/07/2022 06:28:00 426 Above high normal 140-400 (K/uL) Final MPV 06/07/2022 06:28:00 9.2 6.6-11.1 (fL) Final Nucleated erythrocytes/100 leukocytes [Ratio] in Blood by Automated count 06/07/2022 06:28:00 0 <=0 (/100 WBCs) Final Performing Location LAB[facility]ORY [facility] [place] [address] [place] [address]
--- OUTSIDE RECORDS SUMMARY | 2023-06-18 02:48 | External Medical Summary ---
Author Name Unknown Address Unknown Organization : Laboratory Report Ordering Provider Test Date Status NADIRA GURROLA 06/06/2022 16:43:48 Final Observation Date Value Abnormality Reference (Units ) Status Glucose Point of Care 06/06/2022 16:43:48 94 70-120 (mg/dL) Final Performing Location
--- OUTSIDE RECORDS SUMMARY | 2023-06-18 02:48 | External Medical Summary ---
Author Name Unknown Address Unknown Organization [id number]:LABORATORY [facility] - [address] [place] [address] Laboratory Report Ordering Provider Test Date Status YSABELELLIOTBIBIANA 06/06/2022 12:49:00 Final Observation Date Value Abnormality Reference (Units ) Status ABO 06/06/2022 12:49:00 O Final RH 06/06/2022 12:49:00 Positive Final Performing Location LABORATORY [facility] - [address] [place] [address]
--- OUTSIDE RECORDS SUMMARY | 2023-06-18 02:48 | External Medical Summary ---
Author Name Unknown Address Unknown Organization : Laboratory Report Ordering Provider Test Date Status NADIRA GURROAL 06/07/2022 07:39:09 Final Observation Date Value Abnormality Reference (Units ) Status Glucose Point of Care 06/07/2022 07:39:09 91 70-120 (mg/dL) Final Performing Location
--- OUTSIDE RECORDS SUMMARY | 2023-06-18 02:48 | External Medical Summary | Summary of Care ---
Author Name Unknown Organization [place] [address] Care Team Providers Care Drag Car Racer Name Role Phone Marcela Pinto MD Primary Care Provider + Encounter Details Date Type Department Care Team Description 06/05/2022 Scan Encounter General Internal Medicine [facility] [address] [place] [address] Marcela Pinto MD [address] [place] [address] <No scans attached> Allergies Active Allergy Reactions Severity Noted Date Comments Valsartan 07/10/2010 Enalapril 05/21/2006 Escitalopram Oxalate Nausea/vomiting 10/11/2009 Nauseated Iodinated Diagnostic Agents Nausea/vomiting 05/2010 IV Contrast Iodine Hives 12/18/2009 IV Contrast Metoprolol Tartrate 11/18/2006 Made pulse low [place] Oil-Black Currant-Vit E 07/10/2010 Verapamil 03/21/2004 Bupropion Hcl 10/30/2009 Makes pt sick in the stomach documented as of this encounter (statuses as of 06/06/2022) Medications Medication Sig Dispensed Refills Start Date [...] moderate ([facility]) USE ONE NEBULIZER TREATMENT TWICE A DAY DIRECTED FOR WORSENING ASTHMA. J45.909, J44.9 225 mL 1 06/29/2019 Active Albuterol Sulfate (VENTOLIN HFA) 108 (90 Base) MCG/ACT AERS Inhale 2 Puffs by mouth 2 times a day. 0 12/27/2019 Active Lancets MISCIndications:Type 2 diabetes mellitus with hemoglobin A1c goal of less than 7.0% ([facility]) Use as directed. USE TO TEST BLOOD [...] Respimat 1.25 MCG/ACT Inhalation Aerosol Solution (Tiotropium [place] Monohydrate) Inhale by mouth. 0 Active Furosemide [...] as of this encounter (statuses as of 06/06/2022) Active Problems Problem Noted Date Gastroparesis 05/13/2022 [...] 6:18 hrs, SOREN 18.7 Refusing CPAP AHP Allergic rhinitis 07/19/2011 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 Asthma with severity to be determined Generalized osteoarthritis documented as of this encounter (statuses as of 06/06/2022) Resolved Problems Problem Noted Date Resolved Date [...] Hypoxemia 10/08/2011 10/30/2015 Genetic Sleep Disorder Research Other*[id number] 07/25/2011 05/15/2016 Diverticulitis of colon 07/25/2011 01/06/20 19 COPD, moderate 07/19/2011 07/28/2019 Overview: Dr Bhatti [...] as of this encounter (statuses as of 06/06/2022) Immunizations Name Administration Dates Next Due COVID-19 mRNA, LNP-s, No Pre serve, 2-Dose Series (LaserLeap) 08/21/2021,12/22/2020,2020 COVID-19, LNP-s, No Preserve , Tyler-sucrose, [...] Office Visit Cardiology Hammad Lopez, DO [address] [facility] [place] [address] 07/11/2022 Office Visit Hematology Oncology Ida Cueva CRNP [address] [place] [address] Health Maintenance Due Date Last Done Comments Zoster Vaccines (2 of 3) 08/31/2012 07/06/2012 Influenza Vaccine (FLU shot) (#1) 2022 07/10/2021, 06/22/2020, 07/09/2019, Additional history exists Depression Screening, Annual for Pts 12 and Over 08/08/2022 08/08/2021 COVID-19 Vaccine (5 - Booster for Pfizer series) 08/17/2022 04/16/2022, 08/21/2021, 12/22/2020, Additional history exists DIABETES-HGBA1C EVERY 6 MONTHS 08/22/2022 02/19/2022, 08/23/2021, 03/09/2021, Additional history exists GFR - Renal Function 11/13/2022 05/13/2022, 04/11/2022, 02/19/2022, Additional history exists DIABETES-FOOT EXAM 11/19/2022 11/19/2021, 0 12/21/2020, 10/19/2019, Additional history exists Alb / Creat Ratio 02/19/2023 02/19/2022, , 07/27/2018, Additional history exists CKD PHOS USE SMARTSET 03984 02/19/202302/10, 03/09/2021, 03/22/2019 DIABETES-EYE EXAM 03/08/2023 03/08/2022, , 08/07/2020, Additional history exists CKD HGB USE SMARTSET 52924 05/13/202305/13, 05/13/2022, 04/11/2022, Additional history exists O2 ASSESSMENT COMPLETED IN PAST YEAR FOR COPD 05/13/2023 05/13/2022 DXA Scan 08/08/2025 08/08/2020, 04/13, 06/19/2010, Additional [...] Documents on File Type Date Recorded 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
--- OUTSIDE RECORDS SUMMARY | 2023-06-18 02:48 | External Medical Summary ---
Author Name Unknown Address Unknown Organization : Laboratory Report Ordering Provider Test Date Status NADIRA GURROLA 06/07/2022 20:57:20 Final Observation Date Value Abnormality Reference (Units ) Status Glucose Point of Care 06/07/2022 20:57:20 95 70-120 (mg/dL) Final Performing Location
--- OUTSIDE RECORDS SUMMARY | 2023-06-18 02:48 | External Medical Summary | Summary of Care ---
Author Name Unknown Organization [place] [address] Care Team Providers Care Recep Name Role Phone Marcela Pinto MD Primary Care Provider + Encounter Details Date Type Department Care Team Description 05/31/2022 Orders Only Unspecified Department Geri Mendoza MD [address] [place] [address] Allergies Active Allergy Reactions Severity Noted Date Comments Valsartan 07/10/2010 Enalapril 05/21/2006 Escitalopram Oxalate Nausea/vomiting 10/11/2009 Nauseated Iodinated Diagnostic Agents Nausea/vomiting 05/2010 IV Contrast Iodine Hives 12/18/2009 IV Contrast Metoprolol Tartrate 11/18/2006 Made pulse low [place] Oil-Black Currant-Vit E 07/10/2010 Verapamil 03/21/2004 Bupropion [...] Oral Tablet Extended Release 24 Hour (toPROL XL)Indications:Circulation Director akin 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 135 Tablet 3 1 Suspended Additional Information Spiriva Respimat 1.25 MCG/ACT Inhalation Aerosol Solution (Tiotropium [place] Monohydrate) Inhale by mouth. 0 Suspen ded [...] Tablet 5 2 Suspended Additional Information Elda Amandamichelle In Vitro Strip (Glucose Blood) Checks [...] Hypoxemia 10/08/2011 10/30/2015 Genetic Sleep Disorder Research Other*[id number] 07/25/2011 05/15/2016 Diverticulitis of colon 07/25/2011 01/06/20 [...] mRNA, LNP-s, No Pre serve, 2-Dose Series (Stratasan) 08/21/2021,12/22/2020,2020 COVID-19, LNP-s, No Preserve , Tyler-sucrose, [...] Visit Cardiology Hammad Lopez, DO [address] [facility] [place] [address] 07/11/2022 Office Visit Hematology Oncology Ida Cueva CRNP [address] [place] [address] Health Maintenance Due Date [...] 08/22/2022 02/19/2022, 08/23/2021, 03/09/2021, Additional history exists DIABETES-FOOT EXAM 11/19/2022 11/19/2021, 0 12/21/2020, 10/19/2019, Additional history exists GFR - Renal Function 12/07/2022 06/06/2022, 05/13/2022, 04/11/2022, Additional history exists Alb / Creat Ratio 02/19/2023 02/19/2022, , 07/27/2018, Additional history exists CKD PHOS USE SMARTSET 72558 02/19/202302/10, 03/09/2021, 03/22/2019 DIABETES-EYE EXAM 03/08/2023 03/08/2022, , 08/07/2020, Additional history exists CKD HGB USE SMARTSET 70172 06/06/202306/06, 06/06/2022, 05/13/2022, Additional history exists O2 ASSESSMENT COMPLETED IN PAST YEAR FOR COPD 06/06/2023 06/06/2022 DXA Scan 08/08/2025 08/08/2020, 04/13, 06/19/2010, Additional [...] interpreted or [facility] by [facility]. documented in this encounter Advance Directives Documents on File Type Date Recorded Patient Fixed Assets Accountant Expl anation Advanced 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 Directives occurred with: Not Discussed Care Teams Recep Relationship Specialty Start Date End Date Marcela Pinto MD [address] [place] [address] PCP - General Internal Medicine 08/04/14 documented as of this encounter
--- OUTSIDE RECORDS SUMMARY | 2023-06-18 02:48 | External Medical Summary | Summary of Care ---
Author Name Unknown Organization [place] [address] Care Team Providers Care Shoe Clerk Name Role Phone Marcela Pinto MD Primary Care Provider + Encounter Details Date Type Department Care Team Description 06/04/2022 Hospital Encounter Radiology Film File [address] [place], [place] [id number] Arrived Allergies Active Allergy Reactions Severity Noted Date Comments Valsartan 07/10/2010 Enalapril 05/21/2006 Escitalopram Oxalate Nausea/vomiting 10/11/2009 Nauseated Iodinated Diagnostic Agents Nausea/vomiting 05/2010 IV Contrast Iodine Hives 12/18/2009 IV Contrast Metoprolol Tartrate 11/18/2006 Made pulse low [place] Oil-Black Currant-Vit E 07/10/2010 Verapamil 03/21/2004 Bupropion [...] be determined,COPD, moderate ([facility]) USE ONE NEBULIZER TREATMENT TWICE A DAY [...] Oral Tablet Extended Release 24 Hour (toPROL XL)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 135 Tablet 3 1 Suspended Additional Information Spiriva Respimat 1.25 MCG/ACT Inhalation Aerosol Solution (Tiotropium [place] Monohydrate) Inhale by mouth. 0 Suspen ded [...] Hypoxemia 10/08/2011 10/30/2015 Genetic Sleep Disorder Research Other*[id number] 07/25/2011 05/15/2016 COPD, moderate 07/19/2011 07/28/2019 Overview: [...] mRNA, LNP-s, No Pre serve, 2-Dose Series ([employer]) 08/21/2021,12/22/2020,2020 COVID-19, LNP-s, No Preserve , [...] Office Visit Cardiology Hammad Lopez, DO [address] [facility] [place] [address] 07/11/2022 Office Visit Hematology Oncology Ida Cueva CRNP [address] [place] [address] Health Maintenance Due Date [...] Additional history exists CKD PHOS USE SMARTSET 14849 02/19/202302/10, 03/09/2021, 03/22/2019 DIABETES-EYE EXAM 03/08/2023 03/08/2022, , 08/07/2020, Additional history exists O2 ASSESSMENT COMPLETED IN PAST YEAR FOR COPD 06/06/2023 06/07/2022 CKD HGB USE SMARTSET 16969 06/07/202306/07, 06/07/2022, 06/06/2022, Additional history exists DXA [...] - CT (IMAGES ONLY, NO REPORT) Routine 06/04/2022 6:05 PM EDT documented in this encounter Results * RADIOLOGY EXAM - CT (IMAGES ONLY, NO REPORT) (06/04/2022 6:05 PM EDT) Specimen Narrative Scheduling, Silent - 06/06/2022 11:01 PM EDT This is an imaging study not interpreted or resulted by a [facility] radiologist. documented in this encounter Advance Directives Documents on File Type Date Recorded Patient Pelletizer 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 Directives occurred with: Not Discussed Care Teams Shoe Clerk Relationship Specialty Start Date End Date Marcela Pinto MD [address] [facility] [place] [address] PCP - General Internal Medicine 08/04/14 documented as of this encounter
--- OUTSIDE RECORDS SUMMARY | 2023-06-18 02:48 | External Medical Summary ---
Author Name Unknown Address Unknown Organization K01:LABORATORY [facility] - [address] [facility] [address] Laboratory Report Ordering Provider Test Date Status AMI GRADY 06/07/2022 06:28:00 Final Observation Date Value Abnormality Reference (Units ) Status SYNC LEUKOCYTES IN BLOOD BY AUTOMATED COUNT 06/07/2022 06:28:00 9.21 4.00-10.80 (K/uL) Final Segs 06/07/2022 06:28:00 51.1 40.0-75.0 (%) Final Lymphs % 06/07/2022 06:28:00 28.1 18.0-42.0 (%) Final Monos 06/07/2022 06:28:00 11.1 Above high normal 1.0-11.0 (%) Final Eosinophils 06/07/2022 06:28:00 8.1 Above high normal 0.0-6.0 (%) Final Basos 06/07/2022 06:28:00 0.7 0.0-2.0 (%) Final Immature Granulocyte, Percent 06/07/2022 06:28:00 0.9 0.0-2.0 (%) Final Absolute Segs 06/07/2022 06:28:00 4.71 1.80-7.70 (K/uL) Final Lymphs, absolute 06/07/2022 06:28:00 2.59 1.00-4.80 (K/ul) Final Monos, Abs 06/07/2022 06:28:00 1.02 0.00-1.10 (K/uL) Final Eos, Abs 06/07/2022 06:28:00 0.75 Above high normal 0.00-0.70 (K/uL) Final Basos, Abs 06/07/2022 06:28:00 0.06 0.00-0.20 (K/uL) Final Immature Granulocytes, Number 06/07/2022 06:28:00 0.08 0.00-0.20 (K/uL) Final Performing Location LABORATORY [facility] - [facility] [address] [facility] [address]
--- OUTSIDE RECORDS SUMMARY | 2023-06-18 02:48 | External Medical Summary ---
Author Name Unknown Address Unknown Organization : Laboratory Report Ordering Provider Test Date Status NADIRA GURROLA 06/07/2022 16:14:48 Final Observation Date Value Abnormality Reference (Units ) Status Glucose Point of Care 06/07/2022 16:14:48 180 Above high normal 70-120 (mg/dL) Final Performing Location
--- OUTSIDE RECORDS SUMMARY | 2023-06-18 02:48 | External Medical Summary ---
Author Name Unknown Address Unknown Organization K01:LABORATORY [facility] - [address] [facility] [address] [facility] [address] Laboratory Report Ordering Provider Test Date Status AMI GRADY 06/07/2022 06:28:00 Final Observation Date Value Abnormality Reference (Units ) Status HbA1C 06/07/2022 06:28:00 6.8 Above high normal 4. 0-5.6 (%) Final Performing Location LABORATORY C - [address] [facility] [address]
--- OUTSIDE RECORDS SUMMARY | 2023-06-18 02:48 | External Medical Summary ---
Author Name Unknown Address Unknown Organization : Laboratory Report Ordering Provider Test Date Status NADIRA GURROLA 06/07/2022 11:08:48 Final Observation Date Value Abnormality Reference (Units ) Status Glucose Point of Care 06/07/2022 11:08:48 144 Above high normal 70-120 (mg/dL) Final Performing Location
--- OUTSIDE RECORDS SUMMARY | 2023-06-18 02:48 | External Medical Summary | Summary of Care ---
Author Name Unknown Organization [place] [address] Care Team Providers Care Merry Go Round Operator Name Role Phone Marcela Pinto MD Primary Care Provider + Encounter Details Date Type Department Care Team Description 06/04/2022 Orders Only Unspecified Department Geri Mendoza MD [address] [place] [address] Allergies Active Allergy Reactions Severity Noted Date Comments Valsartan 07/10/2010 Enalapril 05/21/2006 Escitalopram Oxalate Nausea/vomiting 10/11/2009 Nauseated Iodinated Diagnostic Agents Nausea/vomiting 05/2010 IV Contrast Iodine Hives 12/18/2009 IV Contrast Metoprolol Tartrate 11/18/2006 Made pulse low [place] Oil-Black Currant-Vit E 07/10/2010 Verapamil 03/21/2004 Bupropion [...] with severity to be determined,COPD, moderate ([facility]) USE ONE NEBULIZER TREATMENT TWICE A DAY DIRECTED FOR WORSENING ASTHMA. J45.909, J44.9 225 mL 1 9 Suspended Additional Information Albuterol Sulfate (VENTOLIN HFA) 108 (90 Base) MCG/ACT AERS Inhale 2 Puffs by mouth 2 times a day. 0 0 Suspended Lancets MISCIndications:Typ e 2 diabetes mellitus with hemoglobin A1c goal of less than 7.0% ([facility]) Use as directed. 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 135 Tablet 3 1 Suspended Additional Information Spiriva Respimat 1.25 MCG/ACT Inhalation Aerosol Solution (Tiotropium [place] Monohydrate) Inhale by mouth. 0 Suspen ded [...] Hypoxemia 10/08/2011 10/30/2015 Genetic Sleep Disorder Research Other*[id number] 07/25/2011 05/15/2016 Diverticulitis of colon 07/25/2011 01/06/20 [...] mRNA, LNP-s, No Pre serve, 2-Dose Series (STYLHUNT) 08/21/2021,12/22/2020,2020 COVID-19, LNP-s, No Preserve , Tyler-sucrose, [...] Visit Cardiology Hammad Lopez, DO [address] [place] [address] 07/11/2022 Office Visit Hematology Oncology Ida Cueva CRNP [address] [place] [address] Health Maintenance Due Date [...] Additional history exists CKD PHOS USE SMARTSET 05532 02/19/202302/10, 03/09/2021, 03/22/2019 DIABETES-EYE EXAM 03/08/2023 03/08/2022, , 08/07/2020, Additional history exists CKD HGB USE SMARTSET 18761 06/06/202306/06, 06/06/2022, 05/13/2022, Additional history exists O2 [...] interpreted [facility]. 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
--- OUTSIDE RECORDS SUMMARY | 2023-06-18 02:48 | External Medical Summary ---
Author Name Unknown Address Unknown Organization : Laboratory Report Ordering Provider Test Date Status NADIRA GURROLA 06/06/2022 21:26:56 Final Observation Date Value Abnormality Reference (Units ) Status Glucose Point of Care 06/06/2022 21:26:56 134 Above high normal 70-120 (mg/dL) Final Performing Location
--- OUTSIDE RECORDS SUMMARY | 2023-06-18 02:48 | External Medical Summary ---
Author Name Unknown Address Unknown Organization K01:LABORATORY [facility] [place] - [address] [place] [address] Laboratory Report Ordering Provider Test Date Status AMI GRADY 06/07/2022 06:28:00 Final Observation Date Value Abnormality Reference (Units ) Status BUN 06/07/2022 06:28:00 12 6-20 (mg/dL) Final Creatinine 06/07/2022 06:28:00 1.2 Above high normal 0.5-1.0 (mg/dL) Final Glomerular filtration rate/1.73 sq M.predicted [Volume Rate/Area] in Serum, Plasma or Blood by Creatinine-based formula (CKD-EPI) 06/07/2022 06:28:00 46 Below low normal >=60 (mL/min) Final Performing Location LABORATORY [facility] - [address] [place] [address]
--- OUTSIDE RECORDS SUMMARY | 2023-06-18 02:49 | External Medical Summary ---
Author Name Unknown Address Unknown Organization K01:LABORATORY [facility] - [address] [facility] [address] Laboratory Report Ordering Provider Test Date Status AMI GRADY 06/06/2022 12:49:00 Final Observation Date Value Abnormality Reference (Units ) Status SYNC LEUKOCYTES IN BLOOD BY AUTOMATED COUNT 06/06/2022 12:49:00 15.12 Above high normal 4.00-10.80 (K/uL) Final Segs 06/06/2022 12:49:00 69.6 40.0-75.0 (%) Final Lymphs % 06/06/2022 12:49:00 17.3 Below low normal 18.0-42.0 (%) Final Monos 06/06/2022 12:49:00 8.7 1.0-11.0 (%) Final Eosinophils 06/06/2022 12:49:00 2.9 0.0-6.0 (%) Final Basos 06/06/2022 12:49:00 0.4 0.0-2.0 (%) Final Immature Granulocyte, Percent 06/06/2022 12:49:00 1.1 0.0-2.0 (%) Final Absolute Segs 06/06/2022 12:49:00 10.52 Above high normal 1.80-7.70 (K/uL) Final Lymphs, absolute 06/06/2022 12:49:00 2.61 1.00-4.80 (K/ul) Final Monos, Abs 06/06/2022 12:49:00 1.32 Above high normal 0.00-1.10 (K/uL) Final Eos, Abs 06/06/2022 12:49:00 0.44 0.00-0.70 (K/uL) Final Basos, Abs 06/06/2022 12:49:00 0.06 0.00-0.20 (K/uL) Final Immature Granulocytes, Number 06/06/2022 12:49:00 0.17 0.00-0.20 (K/uL) Final Performing Location LABORATORY [facility] - [facility] [address] [facility] [address]
--- OUTSIDE RECORDS SUMMARY | 2023-06-18 02:49 | External Medical Summary | Summary of Care ---
Author Name Unknown Organization [place] [address] Care Team Providers Care Squeegeer And Former Name Role Phone Marcela Pinto MD Primary Care Provider + Reason for Visit * Reason Onset Date Comments Fax 05/20/2022 Fax 05/28/2022 Encounter Details Date Type Department Care Team Description 05/20/2022 Telephone General Internal Medicine [facility] [address] [facility] [place] [address] Marcela Pinto MD 200 [place] [address] Fax; Fax Allergies Active Allergy Reactions Severity Noted Date Comments Valsartan 07/10/2010 Enalapril 05/21/2006 Escitalopram Oxalate Nausea/vomiting 10/11/2009 Nauseated Iodinated Diagnostic Agents Nausea/vomiting 05/2010 IV Contrast Iodine Hives 12/18/2009 IV Contrast Metoprolol Tartrate 11/18/2006 Made pulse low [place] Oil-Black Currant-Vit E 07/10/2010 Verapamil 03/21/2004 Bupropion Hcl 10/30/2009 Makes pt sick in the stomach documented as of this encounter (statuses as of 06/03/2022) Medications Medication Sig Dispensed Refills Start Date [...] severity to be determined,COPD, moderate ([facility]) USE ONE NEBULIZER TREATMENT TWICE A DAY DIRECTED FOR WORSENING ASTHMA. J45.909, J44.9 225 mL 1 06/29/2019 Active Albuterol Sulfate (VENTOLIN HFA) 108 (90 Base) MCG/ACT AERS Inhale 2 Puffs by mouth 2 times a day. 0 12/27/2019 Active Lancets MISCIndications:Type 2 diabetes mellitus with hemoglobin A1c goal of less than 7.0% ([facility]) Use as directed. USE TO TEST BLOOD [...] Respimat 1.25 MCG/ACT Inhalation Aerosol Solution (Tiotropium [place] Monohydrate) Inhale by mouth. 0 Active Furosemide [...] MOUTH 4 TIMES A DAY 12 g 01/31/2022 Active Glimepiride 2 MG Oral Tablet [...] as of this encounter (statuses as of 06/03/2022) Active Problems Problem Noted Date Gastroparesis 05/13/2022 [...] as of this encounter (statuses as of 06/03/2022) Resolved Problems Problem Noted Date Resolved Date [...] Hypoxemia 10/08/2011 10/30/2015 Genetic Sleep Disorder Research Other*[id number] 07/25/2011 05/15/2016 Diverticulitis of colon 07/25/2011 01/06/20 [...] as of this encounter (statuses as of 06/03/2022) Immunizations Name Administration Dates Next Due COVID-19 mRNA, LNP-s, No Pre serve, 2-Dose Series ([employer]) 08/21/2021,12/22/2020,2020 COVID-19, LNP-s, No Preserve , Tyler-sucrose, [...] on file documented as of this encounter Miscellaneous Notes * Telephone Encounter - Mohinder Landry RN - 06/03/2022 9:34 AM EDT Office note from 05/13/2022 along with David's previous 2 messages printed and faxed to [employer] attn: [employer] at [phone] with confirmation. * Telephone Encounter - David Duke PA-C - 06/02/2022 12:20 PM EDT It is already stated in my current note. Why does an addendum need made to state the exact same thing? Fax current note. Need to read entirety of note which states it in the note. * Telephone Encounter - Marcela Pinto MD - 05/30/2022 12:09 PM EDT Noted. See previous encounters and seems David has already documented earlier why pt needs to checkit 3 times a Day. If still need addendum in David's note, have to wait till he comes back.please inform. * Telephone Encounter - Mohinder Landry RN - 05/29/2022 2:51 PM EDT Please see Nina's previous message. Form along with instructions placed in Dr. Pinto's orange folder for review. Instructions are asking for addendum to office note from 05/13/2022. States it is missing the reason why patient should be testing 3 times per day. * Telephone Encounter - JORDAN Cifuentes - 05/28/2022 9:35 AM EDT Form being fax back needs why pt is testing 3 times a day/ Instructions on what is needed will be sent along with form * Telephone Encounter - Mohinder Landry RN - 05/22/2022 12:31 PM EDT Office note from 05/13/2022 along with David's previous message printed and faxed to [employer] Attn: Ivett at number given in previous message with confirmation. * Telephone Encounter - David Duke PA-C - 05/22/2022 11:51 AM EDT That is already documented in my office note. Dx of noninsulin diabetes type two. Plan noting she is testing blood sugar three times a day at endocrinology recommendation. * Telephone Encounter - JORDAN Fletcher - 05/21/2022 4:53 PM EDT [employer] is calling to check status of request. Please fax addended OV and script with provider signature shelli. * Telephone Encounter - Teresita Raymundo LPN - 05/20/2022 2:30 PM EDT OV note will need addended with reason pt is testing 3 times a day when not using insulin * Telephone Encounter - JORDAN Diaz - 05/20/2022 9:48 AM EDT Caller requesting the following information to be faxed: Name/Company of caller: [employer] Information requested to be faxed: Addendum to 05/13/22 office note stating why Pt is testing three times daily for non insulin diabetes as well as doctor's signature.. Fax number: [phone] Attention to Name/Company: [employer] Any additional information?: Information needed to process Pt's diabetic testing supplies order that they received. documented in this encounter Plan of Treatment Upcoming Encounters Date Type Specialty Care Team Description 06/03/2022 Office Visit Internal Medicine David Duke PA-C [address] [place], [place] [address] 06/25/2022 Office Visit Internal Medicine Briseyda Barber MD [address] [place] [address] 06/25/2022 Office Visit Cardiology Hammad Lopez, DO [address] [facility] [place] [address] 07/11/2022 Office Visit Hematology Oncology Ida Cueva CRNP [address] [place] [address] Health Maintenance Due Date [...] Additional history exists CKD PHOS USE SMARTSET 63500 02/19/2023 05/, 03/09/2021, 03/22/2019 DIABETES-EYE EXAM 03/08/2023 03/08/2022, , 08/07/2020, Additional history exists CKD HGB USE SMARTSET 67570 05/13/202305/13, 05/13/2022, 04/11/2022, Additional history exists O2 [...] Documents on File Type Date Recorded Patient Cardiopulmonary Technologist Chief Expl anation Advanced 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 Directive Advanced Directive Advanced Directive Care Teams Squeegeer And Former Relationship Specialty Start Date End Date Marcela Pinto MD [address] [place] [address] PCP - General Internal Medicine 08/04/14 documented as of this encounter
--- OUTSIDE RECORDS SUMMARY | 2023-06-18 02:49 | External Medical Summary ---
Author Name Unknown Address Unknown Organization K01:[place] [facility] [place] [address] [facility] [address] Laboratory Report Ordering Provider Test Date Status AMI GRADY 06/06/2022 12:49:00 Final Observation Date Value Abnormality Reference (Units ) Status WBC, Total 06/06/2022 12:49:00 15.12 Above high normal 4.00-10.80 (K/uL) Final RBC 06/06/2022 12:49:00 3.78 3.85-5.15 (M/uL) Final Hemoglobin 06/06/2022 12:49:00 10.4 Below low normal 12.0-15.3 (g/dL) Final HCT 06/06/2022 12:49:00 34.2 Below low normal 36.0-45.2 (%) Final MCV 06/06/2022 12:49:00 90.5 81.5-97.5 (fL) Final MCH 06/06/2022 12:49:00 27.5 27.0-34.0 (pg) Final MCHC 06/06/2022 12:49:00 30.4 32.0-36.0 (g/dL) Final RDW 06/06/2022 12:49:00 15.6 11.5-15.5 (%) Final Platelets 06/06/2022 12:49:00 546 Above high normal 140-400 (K/uL) Final MPV 06/06/2022 12:49:00 9.1 6.6-11.1 (fL) Final Nucleated erythrocytes/100 leukocytes [Ratio] in Blood by Automated count 06/06/2022 12:49:00 0 <=0 (/100 WBCs) Final Performing Location [facility] [place] [address] [place] [address]
--- OUTSIDE RECORDS SUMMARY | 2023-06-18 02:49 | External Medical Summary | Summary of Care ---
Author Name Unknown Organization [place] [address] Care Team Providers Care Cook House Supervisor Name Role Phone Marcela Pinto MD Primary Care Provider + Reason for Visit * Reason Onset Date Comments Test Results 06/03/2022 Encounter Details Date Type Department Care Team Description 06/03/2022 Telephone General Internal Medicine [facility] 200 [facility] [place] [address] Marcela iPnto MD 200 [place] [address] Test Results Allergies Active Allergy Reactions Severity Noted Date Comments Valsartan 07/10/2010 Enalapril 05/21/2006 Escitalopram Oxalate Nausea/vomiting 10/11/2009 Nauseated Iodinated Diagnostic Agents Nausea/vomiting 05/2010 IV Contrast Iodine Hives 12/18/2009 IV Contrast Metoprolol Tartrate 11/18/2006 Made pulse low [place] Oil-Black Currant-Vit E 07/10/2010 Verapamil 03/21/2004 Bupropion [...] be determined,COPD, moderate ([facility]) USE ONE NEBULIZER TREATMENT TWICE A DAY DIRECTED FOR WORSENING ASTHMA. J45.909, J44.9 225 mL 1 06/29/2019 Active Albuterol Sulfate (VENTOLIN HFA) 108 (90 Base) MCG/ACT AERS Inhale 2 Puffs by mouth 2 times a day. 0 12/27/2019 Active Lancets MISCIndications:Type 2 diabetes mellitus with hemoglobin A1c goal of less than 7.0% ([facility]) Use as directed. USE TO [...] Respimat 1.25 MCG/ACT Inhalation Aerosol Solution (Tiotropium [place] Monohydrate) Inhale by mouth. 0 Active Furosemide [...] Hypoxemia 10/08/2011 10/30/2015 Genetic Sleep Disorder Research Other*[id number] 07/25/2011 05/15/2016 Diverticulitis of colon 07/25/2011 01/06/20 [...] mRNA, LNP-s, No Pre serve, 2-Dose Series ([employer]) 08/21/2021,12/22/2020,2020 COVID-19, LNP-s, No Preserve , Tyler-sucrose, [...] Miscellaneous Notes * Telephone Encounter - JORDAN Ramirez - 06/03/2022 2:56 PM EDT Please push cat scan images from 05/28/2022 to [facility]. documented in this encounter Plan of Treatment Upcoming Encounters Date Type Specialty Care Team Description 06/03/2022 Office Visit Internal Medicine David Duke PA-C [address] [place] [address] 06/25/2022 Office Visit Internal Medicine Briseyda Barber MD [address] [place], [place] [address] 06/25/2022 Office Visit Cardiology Hammad Lopez, DO [address] [facility] [place] [address] 07/11/2022 Office Visit Hematology Oncology Ida Cueva, NIECY [address] [place] [address] Health Maintenance Due Date [...] Additional history exists CKD PHOS USE SMARTSET 13308 02/19/202302/10, 03/09/2021, 03/22/2019 DIABETES-EYE EXAM 03/08/2023 03/08/2022, , 08/07/2020, Additional history exists CKD HGB USE SMARTSET 81113 05/13/202305/13, 05/13/2022, 04/11/2022, Additional history exists O2 ASSESSMENT COMPLETED IN PAST YEAR FOR COPD 05/13/2023 05/13/2022 DXA Scan 08/08/2025 08/08/2020, 07, 06/19/2010, Additional [...] Documents on File Type Date Recorded Patient Inward Toll 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 Directive Advanced Directive Advanced Directive Care Teams Cook House Supervisor Relationship Specialty Start Date End Date Marcela Pinto MD 200 [facility] [place] [address] PCP - General Internal Medicine 08/04/14 documented as of this encounter
--- OUTSIDE RECORDS SUMMARY | 2023-06-18 02:49 | External Medical Summary | Summary of Care ---
Author Name Unknown Organization [place] [address] Care Team Providers Care Emery Grinder Name Role Phone Marcela Pinto MD Primary Care Provider + Reason for Visit * Reason Onset Date Comments Test Results 06/03/2022 Encounter Details Date Type Department Care Team Description 06/03/2022 Telephone General Internal Medicine [facility] 200 [facility] [place] [address] Marcela Pinto MD 200 [facility] [place] [address] Test Results Allergies Active Allergy Reactions Severity Noted Date Comments Valsartan 07/10/2010 Enalapril 05/21/2006 Escitalopram Oxalate Nausea/vomiting 10/11/2009 Nauseated Iodinated Diagnostic Agents Nausea/vomiting 05/2010 IV Contrast Iodine Hives 12/18/2009 IV Contrast Metoprolol Tartrate 11/18/2006 Made pulse low [place] Oil-Black Currant-Vit E 07/10/2010 Verapamil 03/21/2004 Bupropion [...] severity to be determined,COPD, moderate ([facility]) USE ONE NEBULIZER TREATMENT TWICE A DAY DIRECTED FOR WORSENING ASTHMA. J45.909, J44.9 225 mL 1 06/29/2019 Active Albuterol Sulfate (VENTOLIN HFA) 108 (90 Base) MCG/ACT AERS Inhale 2 Puffs by mouth 2 times a day. 0 12/27/2019 Active Lancets MISCIndications:Type 2 diabetes mellitus with hemoglobin A1c goal of less than 7.0% ([facility]) Use as directed. USE TO [...] Respimat 1.25 MCG/ACT Inhalation Aerosol Solution (Tiotropium [place] Monohydrate) Inhale by mouth. 0 Active Furosemide [...] Hypoxemia 10/08/2011 10/30/2015 Genetic Sleep Disorder Research Other*[id number] 07/25/2011 05/15/2016 Diverticulitis of colon 07/25/2011 01/06/20 [...] mRNA, LNP-s, No Pre serve, 2-Dose Series ([employer]) 08/21/2021,12/22/2020,2020 COVID-19, LNP-s, No Preserve , [...] Miscellaneous Notes * Telephone Encounter - JORDAN Hill - 06/03/2022 4:27 PM EDT [place] Authorization to Release on file. Images pushed to [facility]. * Telephone Encounter - JORDAN Ramirez - 06/03/2022 2:56 PM EDT Please push cat scan images from 05/28/2022 to [facility]. documented in this encounter Plan of Treatment Upcoming Encounters Date Type Specialty Care Team Description 06/03/2022 Office Visit Internal Medicine David Duke PA-C [address] [place] [address] 06/25/2022 Office Visit Internal Medicine Briseyda Barber MD [address] [place] [address] 06/25/2022 Office Visit Cardiology Hammad Lopez DO [address] [place] [address] 07/11/2022 Office Visit Hematology Oncology Ida Cueva CRNP [address] [place] [address] Health Maintenance Due Date [...] Additional history exists CKD PHOS USE SMARTSET 53580 02/19/2023 05/, 03/09/2021, 03/22/2019 DIABETES-EYE EXAM 03/08/2023 03/08/2022, , 08/07/2020, Additional history exists CKD HGB USE SMARTSET 46810 05/13/202305/13, 05/13/2022, 04/11/2022, Additional history exists O2 [...] Documents on File Type Date Recorded Patient Risk And Insurance Manager Expl 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 Directive Advanced Directive Advanced Directive Care Teams Emery Grinder Relationship Specialty Start Date End Date Marcela Pinto MD 200 [facility] [place] [address] PCP - General Internal Medicine 08/04/14 documented as of this encounter
--- OUTSIDE RECORDS SUMMARY | 2023-06-18 02:49 | External Medical Summary | Summary of Care ---
Author Name Unknown Organization [place] [address] Care Team Providers Care Activities Assistant Name Role Phone Marcela Pinto MD Primary Care Provider + Encounter Details Date Type Department Care Team Description 06/02/2022 Scan Encounter General Internal Medicine [facility] 200 [facility] [address] David Duke PA-C [address] [facility] [place] [address] <No scans attached> Allergies Active Allergy Reactions Severity Noted Date Comments Valsartan 07/10/2010 Enalapril 05/21/2006 Escitalopram Oxalate Nausea/vomiting 10/11/2009 Nauseated Iodinated Diagnostic Agents Nausea/vomiting 05/2010 IV Contrast Iodine Hives 12/18/2009 IV Contrast Metoprolol Tartrate 11/18/2006 Made pulse low [place] Oil-Black Currant-Vit E 07/10/2010 Verapamil 03/21/2004 Bupropion [...] Asthma with severity to be determined,COPD, moderate ([facility]) USE ONE NEBULIZER TREATMENT TWICE A DAY DIRECTED FOR WORSENING ASTHMA. J45.909, J44.9 225 mL 1 06/29/2019 Active Albuterol Sulfate (VENTOLIN HFA) 108 (90 Base) MCG/ACT AERS Inhale 2 Puffs by mouth 2 times a day. 0 12/27/2019 Active Lancets MISCIndications:Type 2 diabetes mellitus with hemoglobin A1c goal of less than 7.0% ([facility]) Use as directed. USE TO [...] Respimat 1.25 MCG/ACT Inhalation Aerosol Solution (Tiotropium [place] Monohydrate) Inhale by mouth. 0 Active Furosemide [...] 6:18 hrs, SOERN 18.7 Refusing CPAP AHP Allergic rhinitis 07/19/2011 [...] Hypoxemia 10/08/2011 10/30/2015 Genetic Sleep Disorder Research Other*[id number] 07/25/2011 05/15/2016 Diverticulitis of colon 07/25/2011 01/06/20 [...] mRNA, LNP-s, No Pre serve, 2-Dose Series ([employer]) 08/21/2021,12/22/2020,2020 COVID-19, LNP-s, No Preserve , [place]-sucrose, Ages 12+ ([employer]) 04/16/2022 Hepatitis B, 20+ [...] Visit Internal Medicine David Duke PA-C [address] [facility] [place] [address] 06/25/2022 Office Visit Internal Medicine Briseyda Barber MD [address] [facility] [place] [address] 06/25/2022 Office Visit Cardiology Hammad Lopez, DO [address] [facility] [place] [address] 07/11/2022 Office Visit Hematology Oncology Ida Cueva CRNP [address] [place] [address] Health Maintenance Due Date [...] Additional history exists CKD PHOS USE SMARTSET 40671 02/19/202302/10, 03/09/2021, 03/22/2019 DIABETES-EYE EXAM 03/08/2023 03/08/2022, , 08/07/2020, Additional history exists CKD HGB USE SMARTSET 17313 05/13/202305/13, 05/13/2022, 04/11/2022, Additional history exists O2 [...] Documents on File Type Date Recorded Patient Time Study Statistician Expl anation Advanced 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 Directive Advanced Directive Advanced Directive Care Teams Activities Assistant Relationship Specialty Start Date End Date Marcela Pinto MD [address] [facility] [place] [address] PCP - General Internal Medicine 08/04/14 documented as of this encounter
--- OUTSIDE RECORDS SUMMARY | 2023-06-18 02:49 | External Medical Summary | Summary of Care ---
Author Name Unknown Organization [place] [address] Care Team Providers Care Bottling Line Operator Name Role Phone Marcela Pinto MD Primary Care Provider + Encounter Details Date Type Department Care Team Description 05/31/2022 Scan Encounter General Internal Medicine [facility] 200 [place] [address] Marcela Pinto MD 200 [facility] [place] [address] <No scans attached> Allergies Active Allergy Reactions Severity Noted Date Comments Valsartan 07/10/2010 Enalapril 05/21/2006 Escitalopram Oxalate Nausea/vomiting 10/11/2009 Nauseated Iodinated Diagnostic Agents Nausea/vomiting 05/2010 IV Contrast Iodine Hives 12/18/2009 IV Contrast Metoprolol Tartrate 11/18/2006 Made pulse low [place] Oil-Black Currant-Vit E 07/10/2010 Verapamil 03/21/2004 Bupropion [...] to be determined,COPD, moderate ([facility]) USE ONE NEBULIZER TREATMENT TWICE A DAY DIRECTED FOR WORSENING ASTHMA. J45.909, J44.9 225 mL 1 06/29/2019 Active Albuterol Sulfate (VENTOLIN HFA) 108 (90 Base) MCG/ACT AERS Inhale 2 Puffs by mouth 2 times a day. 0 12/27/2019 Active Lancets MISCIndications:Type 2 diabetes mellitus with hemoglobin A1c goal of less than 7.0% ([facility]) Use as directed. USE TO TEST [...] 1.25 MCG/ACT Inhalation Aerosol Solution (Tiotropium [place] Monohydrate) Inhale by mouth. 0 Active Furosemide [...] the morning. 30 Tablet 5 02/19/2022 Active Elda Sanches In Vitro Strip (Glucose [...] Hypoxemia 10/08/2011 10/30/2015 Genetic Sleep Disorder Research Other*[id number] 07/25/2011 05/15/2016 Diverticulitis of colon 07/25/2011 01/06/20 [...] mRNA, LNP-s, No Pre serve, 2-Dose Series ([employer]) 08/21/2021,12/22/2020,2020 COVID-19, LNP-s, No Preserve , [...] Visit Internal Medicine David Duke PA-C [address] [facility] [place] [address] 06/25/2022 Office Visit Internal Medicine Briseyda Barber MD [address] [facility] [place] [address] 06/25/2022 Office Visit Cardiology Hammad Lopez, DO [address] [facility] [place] [address] 07/11/2022 Office Visit Hematology Oncology Ida Cueva CRNP [address] [place] [place] [address] Health Maintenance Due Date [...] Additional history exists CKD PHOS USE SMARTSET 63765 02/19/202302/10, 03/09/2021, 03/22/2019 DIABETES-EYE EXAM 03/08/2023 03/08/2022, , 08/07/2020, Additional history exists CKD HGB USE SMARTSET 51742 05/13/202305/13, 05/13/2022, 04/11/2022, Additional history exists O2 [...] Documents on File Type Date Recorded Patient Package Sealer Machine Expl 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 Directive Advanced Directive Advanced Directive Care Teams Bottling Line Operator Relationship Specialty Start Date End Date Marcela Pinto MD [address] [place] [address] PCP - General Internal Medicine 08/04/14 documented as of this encounter
--- OUTSIDE RECORDS SUMMARY | 2023-06-18 02:49 | External Medical Summary ---
Author Name Unknown Address Unknown Organization K01:[facility] [place] [address] [facility] [address] Laboratory Report Ordering Provider Test Date Status AMI GRADY 06/06/2022 12:49:00 Final Observation Date Value Abnormality Reference (Units ) Status BUN 06/06/2022 12:49:00 11 6-20 (mg/dL) Final Creatinine 06/06/2022 12:49:00 0.9 0.5-1.0 (mg/dL) Final Glomerular filtration rate/1.73 sq M.predicted [Volume Rate/Area] in Serum, Plasma or Blood by Creatinine-based formula (CKD-EPI) 06/06/2022 12:49:00 63 >=60 (mL/min) Final Performing Location [facility] [place] - [address] [facility] [address]
--- OUTSIDE RECORDS SUMMARY | 2023-06-18 02:49 | External Medical Summary | Summary of Care ---
Author Name Unknown Organization [place] [address] Care Team Providers Care Systems Integration Manager Name Role Phone Marcela Pinto MD Primary Care Provider + Encounter Details Date Type Department Care Team Description 05/31/2022 Result Scan Unspecified Department <No scans attached> Allergies Active Allergy Reactions Severity Noted Date Comments Valsartan 07/10/2010 Enalapril 05/21/2006 Escitalopram Oxalate Nausea/vomiting 10/11/2009 Nauseated Iodinated Diagnostic Agents Nausea/vomiting 05/2010 IV Contrast Iodine Hives 12/18/2009 IV Contrast Metoprolol Tartrate 11/18/2006 Made pulse low [place] Oil-Black Currant-Vit E 07/10/2010 Verapamil 03/21/2004 Bupropion Hcl 10/30/2009 Makes pt sick in the stomach documented as of this encounter (statuses as of 06/05/2022) Medications Medication Sig Dispensed Refills Start Date [...] Capsule Delayed Release (PriLOSEC)Indication s:Ischemic colitis ([facility]) TAKE 1 [...] Respimat 1.25 MCG/ACT Inhalation Aerosol Solution (Tiotropium [place] Monohydrate) Inhale by mouth. 0 Active Furosemide 40 MG Oral Tablet (Lasix)Indications:C hronic systolic heart failure ([facility]),Paroxysmal atrial fibrillation ([facility]),Chronic 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 ([facility]),NICM (nonischemic cardiomyopathy) ([facility]),Chronic atrial fibrillation ([facility]),Hospital discharge follow-up,Presence of Watchman left atrial appendage closure device Take 1.5 Tablets by mouth 2 times a day. 270 Tablet 1 10/31/2021 Active Lisinopril 2.5 MG Oral Tablet (Prinivil)Indication s:Paroxysmal atrial fibrillation ([facility]),Chronic systolic heart failure ([facility]) Take by mouth 1 Tablet in [...] be determined,COPD, moderate ([facility]) TAKE 1 PUFF BY MOUTH 4 TIMES A DAY 12 g 1 01/31/2022 Active Glimepiride 2 MG Oral Tablet (Amaryl) TAKE 1 TABLET BY MOUTH EVERY DAY WITH BREAKFAST 90 Tablet 1 02/07/2022 Active Sertraline HCl 25 MG Oral Tablet (Zoloft)Indications: Major depressive disorder with single episode, in partial remission ([facility]),HECTOR (generalized anxiety disorder) Take by mouth 1 [...] as of this encounter (statuses as of 06/05/2022) Active Problems Problem Noted Date Gastroparesis 05/13/2022 [...] as of this encounter (statuses as of 06/05/2022) Resolved Problems Problem Noted Date Resolved Date [...] Hypoxemia 10/08/2011 10/30/2015 Genetic Sleep Disorder Research Other*[id number] 07/25/2011 05/15/2016 Diverticulitis of colon 07/25/2011 01/06/20 [...] as of this encounter (statuses as of 06/05/2022) Immunizations Name Administration Dates Next Due COVID-19 mRNA, LNP-s, No Pre serve, 2-Dose Series ([employer]) 08/21/2021,12/22/2020,2020 COVID-19, LNP-s, No Preserve , Tyler-sucrose, [...] Visit Cardiology Hammad Lopez, DO [address] [place] [address] 07/11/2022 Office Visit Hematology Oncology Ida Cueva CRNP [address] [place] [address] Health Maintenance Due Date [...] Additional history exists CKD PHOS USE SMARTSET 28196 02/19/202302/10, 03/09/2021, 03/22/2019 DIABETES-EYE EXAM 03/08/2023 03/08/2022, , 08/07/2020, Additional history exists CKD HGB USE SMARTSET 36083 05/13/202305/13, 05/13/2022, 04/11/2022, Additional history exists O2 [...] Date/Time Associated Diagnosis Comments RADIOLOGY SCANNED RESULT 05/31/2022 documented in this encounter Results * RADIOLOGY SCANNED RESULT (05/31/2022) Specimen Narrative documented in this encounter Advance Directives Documents on File Type Date Recorded Patient Curtain Mender Expl 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 Directive Advanced Directive Advanced Directive Care Teams Systems Integration Manager Relationship Specialty Start Date End Date Marcela Pinto MD [address] [place] [address] PCP - General Internal Medicine 08/04/14 documented as of this encounter
--- OUTSIDE RECORDS SUMMARY | 2023-06-18 02:49 | External Medical Summary | Summary of Care ---
Author Name Unknown Organization [place] [address] Care Team Providers Care Timber Skidder Name Role Phone Marcela Pinto MD Primary Care Provider + Reason for Visit * Reason Onset Date Comments Fax 05/20/2022 Fax 05/28/2022 Encounter Details Date Type Department Care Team Description 05/20/2022 Telephone General Internal Medicine [facility] [address] [facility] [place] [address] Marcela Pinto MD 200 [place] [address] Fax; Fax Allergies Active Allergy Reactions Severity Noted Date Comments Valsartan 07/10/2010 Enalapril 05/21/2006 Escitalopram Oxalate Nausea/vomiting 10/11/2009 Nauseated Iodinated Diagnostic Agents Nausea/vomiting 05/2010 IV Contrast Iodine Hives 12/18/2009 IV Contrast Metoprolol Tartrate 11/18/2006 Made pulse low [place] Oil-Black Currant-Vit E 07/10/2010 Verapamil 03/21/2004 Bupropion Hcl 10/30/2009 Makes pt sick in the stomach documented as of this encounter (statuses as of 06/02/2022) Medications Medication Sig Dispensed Refills Start Date [...] Respimat 1.25 MCG/ACT Inhalation Aerosol Solution (Tiotropium [place] Monohydrate) Inhale by mouth. 0 Active Furosemide [...] as of this encounter (statuses as of 06/02/2022) Active Problems Problem Noted Date Gastroparesis 05/13/2022 [...] as of this encounter (statuses as of 06/02/2022) Resolved Problems Problem Noted Date Resolved Date [...] Hypoxemia 10/08/2011 10/30/2015 Genetic Sleep Disorder Research Other*[id number] 07/25/2011 05/15/2016 Diverticulitis of colon 07/25/2011 01/06/20 [...] as of this encounter (statuses as of 06/02/2022) Immunizations Name Administration Dates Next Due COVID-19 mRNA, LNP-s, No Pre serve, 2-Dose Series ([employer]) 08/21/2021,12/22/2020,2020 COVID-19, LNP-s, No Preserve , Tyler-sucrose, [...] encounter Miscellaneous Notes * Telephone Encounter - David Duke PA-C [...] as well as doctor's signature.. Fax number: [phone] Attention to Name/Company: [employer] Any additional information?: Information needed to process Pt's diabetic testing supplies order that they received. documented in this encounter Plan of Treatment Upcoming Encounters Date Type Specialty Care Team Description 06/03/2022 Office Visit Internal [facility] [address] 06/25/2022 Office Visit Internal Medicine Briseyda Barber MD 200 [place] [address] 06/25/2022 Office Visit Cardiology Hammad Lopez, DO [address] [facility] [place] [address] 07/11/2022 Office Visit Hematology Oncology Ida Cueva CRNP [address] [place] [address] [place] [address] Health Maintenance Due Date [...] Additional history exists CKD PHOS USE SMARTSET 18602 02/19/202302/10, 03/09/2021, 03/22/2019 DIABETES-EYE EXAM 03/08/2023 03/08/2022, , 08/07/2020, Additional history exists CKD HGB USE SMARTSET 65952 05/13/202305/13, 05/13/2022, 04/11/2022, Additional history exists O2 [...] Documents on File Type Date Recorded Patient Lamina Searcher Expl anation Advanced 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 Directive Advanced Directive Advanced Directive Care Teams Timber Skidder Relationship Specialty Start Date End Date Marcela Pinto MD [address] [place] [address] PCP - General Internal Medicine 08/04/14 documented as of this encounter
--- OUTSIDE RECORDS SUMMARY | 2023-06-18 02:49 | External Medical Summary | Summary of Care ---
Author Name Unknown Organization [place] [address] Care Team Providers Care Loan Consultant Name Role Phone Marcela Pinto MD Primary Care Provider + Encounter Details Date Type Department Care Team Description 06/01/2022 Scan Encounter General Internal Medicine [facility] 200 [facility] [place] [address] Marcela Pinto MD [address] [place] [address] <No scans attached> Allergies Active Allergy Reactions Severity Noted Date Comments Valsartan 07/10/2010 Enalapril 05/21/2006 Escitalopram Oxalate Nausea/vomiting 10/11/2009 Nauseated Iodinated Diagnostic Agents Nausea/vomiting 05/2010 IV Contrast Iodine Hives 12/18/2009 IV Contrast Metoprolol Tartrate 11/18/2006 Made pulse low [place] Oil-Black Currant-Vit E 07/10/2010 Verapamil 03/21/2004 Bupropion [...] Respimat 1.25 MCG/ACT Inhalation Aerosol Solution (Tiotropium [place] Monohydrate) Inhale by mouth. 0 Active [...] Hypoxemia 10/08/2011 10/30/2015 Genetic Sleep Disorder Research Other*[id number] 07/25/2011 05/15/2016 Diverticulitis of colon 07/25/2011 01/06/20 [...] mRNA, LNP-s, No Pre serve, 2-Dose Series ([employer]) 08/21/2021,12/22/2020,2020 COVID-19, LNP-s, No Preserve , Tyler-sucrose, [...] Visit Internal Medicine David Duke PA-C [address] [facility] [place] [address] 06/25/2022 Office Visit Internal Medicine Briseyda Barber MD [address] [facility] [place] [address] 06/25/2022 Office Visit Cardiology Hammad Lopez, DO 132 [facility] [place] [address] 07/11/2022 Office Visit Hematology Oncology Ida Cueva CRNP [address] [place] [address] Health Maintenance Due Date [...] Additional history exists CKD PHOS USE SMARTSET 09300 02/19/202302/10, 03/09/2021, 03/22/2019 DIABETES-EYE EXAM 03/08/2023 03/08/2022, , 08/07/2020, Additional history exists CKD HGB USE SMARTSET 84297 05/13/202305/13, 05/13/2022, 04/11/2022, Additional history exists O2 [...] Documents on File Type Date Recorded Patient Dresser Tender Expl 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 Directive Advanced Directive Advanced Directive Care Teams Loan Consultant Relationship Specialty Start Date End Date Marcela Pinto MD [address] [facility] [place] [address] PCP - General Internal Medicine 08/04/14 documented as of this encounter
--- OUTSIDE RECORDS SUMMARY | 2023-06-18 02:50 | External Medical Summary | Summary of Care ---
Author Name Unknown Organization [place] [address] Care Team Providers Care Tandem Mill Roller Name Role Phone Marcela Pinto MD Primary Care Provider + Reason for Visit * Reason Onset Date Comments Fax 05/20/2022 Fax 05/28/2022 Encounter Details Date Type Department Care Team Description 05/20/2022 Telephone General Internal Medicine [facility] 200 [place] [address] Marcela Pinto MD 200 [place] [address] Fax; Fax Allergies Active Allergy Reactions Severity Noted Date Comments Valsartan 07/10/2010 Enalapril 05/21/2006 Escitalopram Oxalate Nausea/vomiting 10/11/2009 Nauseated Iodinated Diagnostic Agents Nausea/vomiting 05/2010 IV Contrast Iodine Hives 12/18/2009 IV Contrast Metoprolol Tartrate 11/18/2006 Made pulse low [place] Oil-Black Currant-Vit E 07/10/2010 Verapamil 03/21/2004 Bupropion Hcl 10/30/2009 Makes pt sick in the stomach documented as of this encounter (statuses as of 05/30/2022) Medications Medication Sig Dispensed Refills Start Date [...] ([facility]) USE ONE NEBULIZER TREATMENT TWICE A DAY DIRECTED FOR WORSENING ASTHMA. J45.909, J44.9 225 mL 1 06/29/2019 Active Albuterol Sulfate (VENTOLIN HFA) 108 (90 Base) MCG/ACT AERS Inhale 2 Puffs by mouth 2 times a day. 0 12/27/2019 Active Lancets MISCIndications:Type 2 diabetes mellitus with hemoglobin A1c goal of less than 7.0% ([facility]) Use as directed. USE TO [...] Respimat 1.25 MCG/ACT Inhalation Aerosol Solution (Tiotropium [place] Monohydrate) Inhale by mouth. 0 Active Furosemide [...] as of this encounter (statuses as of 05/30/2022) Active Problems Problem Noted Date Gastroparesis 05/13/2022 [...] as of this encounter (statuses as of 05/30/2022) Resolved Problems Problem Noted Date Resolved Date [...] Hypoxemia 10/08/2011 10/30/2015 Genetic Sleep Disorder Research Other*[id number] 07/25/2011 05/15/2016 Diverticulitis of colon 07/25/2011 01/06/20 [...] as of this encounter (statuses as of 05/30/2022) Immunizations Name Administration Dates Next Due COVID-19 mRNA, LNP-s, No Pre serve, 2-Dose Series ([employer]) 08/21/2021,12/22/2020,2020 COVID-19, LNP-s, No Preserve , [...] as well as doctor's signature.. Fax number: [phone] Attention to Name/Company: [employer] Any additional information?: Information needed to process Pt's diabetic testing supplies order that they received. documented in this encounter Plan of Treatment Upcoming Encounters Date Type Specialty Care Team Description 06/03/2022 Office Visit Internal Medicine David Duke PA-C 200 [place] [address] 06/25/2022 Office Visit Internal Medicine Briseyda Barber MD 200 [place] [address] 06/25/2022 Office [facility], DO [facility] [address] 07/11/2022 Office Visit Hematology Oncology Ida Cueva CRNP 400 [facility] [place] [address] Health Maintenance Due Date Last Done [...] Additional history exists CKD PHOS USE SMARTSET 27219 02/19/202302/10, 03/09/2021, 03/22/2019 DIABETES-EYE EXAM 03/08/2023 03/08/2022, , 08/07/2020, Additional history exists CKD HGB USE SMARTSET 30265 05/13/202305/13, 05/13/2022, 04/11/2022, Additional history exists O2 [...] Documents on File Type Date Recorded 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
--- OUTSIDE RECORDS SUMMARY | 2023-06-18 02:50 | External Medical Summary | Summary of Care ---
Author Name Unknown Organization [place] [address] Care Team Providers Care Probation Counselor Name Role Phone Marcela Pinto MD Primary Care Provider + Reason for Visit * Reason Onset Date Comments Fax 05/20/2022 Encounter Details Date Type Department Care Team Description 05/20/2022 Telephone General Internal Medicine [facility] [address] [facility] [place] [address] Marcela Pinto MD 200 [place] [address] Fax Allergies Active Allergy Reactions Severity Noted Date Comments Valsartan 07/10/2010 Enalapril 05/21/2006 Escitalopram Oxalate Nausea/vomiting 10/11/2009 Nauseated Iodinated Diagnostic Agents Nausea/vomiting 05/2010 IV Contrast Iodine Hives 12/18/2009 IV Contrast Metoprolol Tartrate 11/18/2006 Made pulse low [place] Oil-Black Currant-Vit E 07/10/2010 Verapamil 03/21/2004 Bupropion Hcl 10/30/2009 Makes pt sick in the stomach documented as of this encounter (statuses as of 05/22/2022) Medications Medication Sig Dispensed Refills Start Date [...] Asthma with severity to be determined,COPD, moderate ([facility] [...] Respimat 1.25 MCG/ACT Inhalation Aerosol Solution (Tiotropium [place] Monohydrate) Inhale by mouth. 0 Active Furosemide [...] as of this encounter (statuses as of 05/22/2022) Active Problems Problem Noted Date Gastroparesis 05/13/2022 [...] as of this encounter (statuses as of 05/22/2022) Resolved Problems Problem Noted Date Resolved Date [...] Hypoxemia 10/08/2011 10/30/2015 Genetic Sleep Disorder Research Other*[id number] 07/25/2011 05/15/2016 Diverticulitis of colon 07/25/2011 01/06/20 [...] as of this encounter (statuses as of 05/22/2022) Immunizations Name Administration Dates Next Due COVID-19 mRNA, LNP-s, No Pre serve, 2-Dose Series ([employer]) 08/21/2021,12/22/2020,2020 COVID-19, LNP-s, No Preserve , [...] JORDAN Fletcher - 05/21/2022 4:53 PM EDT [employer] is calling to check status of request. [...] as well as doctor's signature.. Fax number: [phone] Attention to Name/Company: [employer] Any additional information?: Information needed to process Pt's diabetic testing supplies order that they received. documented in this encounter Plan of Treatment Upcoming Encounters Date Type Specialty Care Team Description 05/28/2022 Imaging Radiology 06/03/2022 Office Visit Internal Medicine David Duke PA-C 200 [facility] [place] [address] 06/25/2022 Office Visit Internal Medicine Briseyda Barber MD 200 [facility] [place] [address] 06/25/2022 Office [facility]ammad Lopez, DO [facility] [place] [address] 07/11/2022 Office Visit Hematology Oncology Ida Cueva CRNP [address] [place], [place] [address] [id number] Health Maintenance Due Date Last Done Comments [...] 11/19/2021, 0 12/21/2020, 10/19/2019, Additional history exists CKD PHOS USE SMARTSET 11912 02/19/202302/10, 03/09/2021, 03/22/2019 DIABETES-URINE ALBUMIN/CREATININE EVERY 12 MONTHS 02/19/2023 02/19/2022, 07/09/2019, 07/27/2018, Additional history exists DIABETES-EYE EXAM 03/08/2023 03/08/2022, , 08/07/2020, Additional history exists CKD HGB USE SMARTSET 18941 05/13/202305/13, 05/13/2022, 04/11/2022, Additional history exists O2 [...] Documents on File Type Date Recorded 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
--- OUTSIDE RECORDS SUMMARY | 2023-06-18 02:50 | External Medical Summary | Summary of Care ---
Author Name Unknown Organization [place] [address] Care Team Providers Care Office Service Coordinator Name Role Phone Marcela Pinto MD Primary Care Provider + Reason for Visit * Reason Onset Date Comments Fax 05/20/2022 Fax 05/28/2022 Encounter Details Date Type Department Care Team Description 05/20/2022 Telephone General Internal Medicine [facility] 200 [place] [address] Marcela Pinto MD 200 [place] [address] Fax; Fax Allergies Active Allergy Reactions Severity Noted Date Comments Valsartan 07/10/2010 Enalapril 05/21/2006 Escitalopram Oxalate Nausea/vomiting 10/11/2009 Nauseated Iodinated Diagnostic Agents Nausea/vomiting 05/2010 IV Contrast Iodine Hives 12/18/2009 IV Contrast Metoprolol Tartrate 11/18/2006 Made pulse low [place] Oil-Black Currant-Vit E 07/10/2010 Verapamil 03/21/2004 Bupropion [...] severity to be determined,COPD, moderate ([facility]) USE ONE NEBULIZER TREATMENT TWICE A DAY DIRECTED FOR WORSENING ASTHMA. J45.909, J44.9 225 mL 1 06/29/2019 Active Albuterol Sulfate (VENTOLIN HFA) 108 (90 Base) MCG/ACT AERS Inhale 2 Puffs by mouth 2 times a day. 0 12/27/2019 Active Lancets MISCIndications:Type 2 diabetes mellitus with hemoglobin A1c goal of less than 7.0% ([facility]) Use as directed. USE TO TEST [...] Respimat 1.25 MCG/ACT Inhalation Aerosol Solution (Tiotropium [place] Monohydrate) Inhale by mouth. 0 Active Furosemide [...] Hypoxemia 10/08/2011 10/30/2015 Genetic Sleep Disorder Research Other*[id number] 07/25/2011 05/15/2016 Diverticulitis of colon 07/25/2011 01/06/20 [...] mRNA, LNP-s, No Pre serve, 2-Dose Series ([employer]) 08/21/2021,12/22/2020,2020 COVID-19, LNP-s, No Preserve , Tyler-sucrose, [...] made to state the exact same thing? * Telephone Encounter - Marcela Pinto MD [...] as well as doctor's signature.. Fax number: [phone] Attention to Name/Company: [employer] Any additional information?: Information needed to process Pt's diabetic testing supplies order that they received. documented in this encounter Plan of Treatment Upcoming Encounters Date Type Specialty Care Team Description 06/03/2022 Office Visit Internal Medicine David Duke PA-C [address] [place] [address] 06/25/2022 Office Visit Internal Medicine Briseyda Barber MD [address] [place] [address] 06/25/2022 [facility] [address] 07/11/2022 Office Visit Hematology Oncology Ida Cueva CRNP [address] [place] [address] Health Maintenance Due Date [...] Additional history exists CKD PHOS USE SMARTSET 27381 02/19/202302/10, 03/09/2021, 03/22/2019 DIABETES-EYE EXAM 03/08/2023 03/08/2022, , 08/07/2020, Additional history exists CKD HGB USE SMARTSET 67090 05/13/202305/13, 05/13/2022, 04/11/2022, Additional history exists O2 [...] Documents on File Type Date Recorded Patient Lightout Examiner Expl 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 Directive Advanced Directive Advanced Directive Care Teams Office Service Coordinator Relationship Specialty Start Date End Date Marcela Pinto MD [address] [place] [address] PCP - General Internal Medicine 08/04/14 documented as of this encounter
--- OUTSIDE RECORDS SUMMARY | 2023-06-18 02:50 | External Medical Summary | Summary of Care ---
Author Name Unknown Organization [place] [address] Care Team Providers Care Boring And Filling Machine Operator Name Role Phone Marcela Pinto MD Primary Care Provider + Reason for Visit * Reason Onset Date Comments Forms Request 05/31/2022 Encounter Details Date Type Department Care Team Description 05/31/2022 Telephone General Internal Medicine [facility] [address] [facility] [place] [address] Marcela Pinto MD 200 [place] [address] Forms Request Allergies Active Allergy Reactions Severity Noted Date Comments Valsartan 07/10/2010 Enalapril 05/21/2006 Escitalopram Oxalate Nausea/vomiting 10/11/2009 Nauseated Iodinated Diagnostic Agents Nausea/vomiting 05/2010 IV Contrast Iodine Hives 12/18/2009 IV Contrast Metoprolol Tartrate 11/18/2006 Made pulse low [place] Oil-Black Currant-Vit E 07/10/2010 Verapamil 03/21/2004 Bupropion Hcl 10/30/2009 Makes pt sick in the stomach documented as of this encounter (statuses as of 05/31/2022) Medications Medication Sig Dispensed Refills Start Date [...] to be determined,COPD, moderate ([facility]) USE ONE NEBULIZER TREATMENT TWICE A DAY DIRECTED FOR WORSENING ASTHMA. J45.909, J44.9 225 mL 1 06/29/2019 Active Albuterol Sulfate (VENTOLIN HFA) 108 (90 Base) MCG/ACT AERS Inhale 2 Puffs by mouth 2 times a day. 0 12/27/2019 Active Lancets MISCIndications:Type 2 diabetes mellitus with hemoglobin A1c goal of less than 7.0% ([facility]) Use as directed. USE TO TEST [...] Respimat 1.25 MCG/ACT Inhalation Aerosol Solution (Tiotropium [place] Monohydrate) Inhale by mouth. 0 Active Furosemide [...] as of this encounter (statuses as of 05/31/2022) Active Problems Problem Noted Date Gastroparesis 05/13/2022 [...] as of this encounter (statuses as of 05/31/2022) Resolved Problems Problem Noted Date Resolved Date [...] Hypoxemia 10/08/2011 10/30/2015 Genetic Sleep Disorder Research Other*[id number] 07/25/2011 05/15/2016 Diverticulitis of colon 07/25/2011 01/06/20 [...] as of this encounter (statuses as of 05/31/2022) Immunizations Name Administration Dates Next Due COVID-19 mRNA, LNP-s, No Pre serve, 2-Dose Series ([employer]) 08/21/2021,12/22/2020,2020 COVID-19, LNP-s, No Preserve , Tyler-sucrose, [...] Telephone Encounter - Mohinder Landry RN - 05/31/2022 9:11 AM EDT Signed confirmation of order forms for nebulizer machine and albuterol nebulizer faxed to [address] attn: Rachel at [phone] with confirmation. [place] [address] pre request on the forms. Copy of forms made and sent to [facility]. documented in this encounter Plan of Treatment Upcoming Encounters Date Type Specialty Care Team Description 06/03/2022 Office Visit Internal Medicine David Duke PA-C [address] [place] [address] 06/25/2022 Office Visit Internal Medicine Briseyda Barber MD [address] [place] [address] 06/25/2022 Office Visit Cardiology Hammad Lopez, DO [address] [place] [address] 07/11/2022 Office Visit Hematology Oncology Ida Cueva CRNP [address] [place] [address] Health Maintenance Due Date [...] Additional history exists CKD PHOS USE SMARTSET 95772 02/19/2023 05/, 03/09/2021, 03/22/2019 DIABETES-EYE EXAM 03/08/2023 03/08/2022, , 08/07/2020, Additional history exists CKD HGB USE SMARTSET 57925 05/13/202305/13, 05/13/2022, 04/11/2022, Additional history exists O2 [...] Documents on File Type Date Recorded 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
--- OUTSIDE RECORDS SUMMARY | 2023-06-18 02:50 | External Medical Summary | Summary of Care ---
Author Name Unknown Organization [place] [address] Care Team Providers Care News Camera Operator Name Role Phone Marcela Pinto MD Primary Care Provider + Reason for Visit * Reason Onset Date Comments Fax 05/20/2022 Fax 05/28/2022 Encounter Details Date Type Department Care Team Description 05/20/2022 Telephone General Internal Medicine [facility] 200 [facility] [place] [address] Marcela Pinto MD 200 [place] [address] Fax; Fax Allergies Active Allergy Reactions Severity Noted Date Comments Valsartan 07/10/2010 Enalapril 05/21/2006 Escitalopram Oxalate Nausea/vomiting 10/11/2009 Nauseated Iodinated Diagnostic Agents Nausea/vomiting 05/2010 IV Contrast Iodine Hives 12/18/2009 IV Contrast Metoprolol Tartrate 11/18/2006 Made pulse low [place] Oil-Black Currant-Vit E 07/10/2010 Verapamil 03/21/2004 Bupropion Hcl 10/30/2009 Makes pt sick in the stomach documented as of this encounter (statuses as of 05/29/2022) Medications Medication Sig Dispensed Refills Start Date [...] A1c goal of less than 7.0% ([facility]) Use as directed. USE TO [...] Respimat 1.25 MCG/ACT Inhalation Aerosol Solution (Tiotropium [place] Monohydrate) Inhale by mouth. 0 Active Furosemide [...] as of this encounter (statuses as of 05/29/2022) Active Problems Problem Noted Date Gastroparesis 05/13/2022 [...] as of this encounter (statuses as of 05/29/2022) Resolved Problems Problem Noted Date Resolved Date [...] Hypoxemia 10/08/2011 10/30/2015 Genetic Sleep Disorder Research Other*[id number] 07/25/2011 05/15/2016 Diverticulitis of colon 07/25/2011 01/06/20 [...] as of this encounter (statuses as of 05/29/2022) Immunizations Name Administration Dates Next Due COVID-19 mRNA, LNP-s, No Pre serve, 2-Dose Series ([employer]) 08/21/2021,12/22/2020,2020 COVID-19, LNP-s, No Preserve , [...] as well as doctor's signature.. Fax number: [phone] Attention to Name/Company: [employer] Any additional information?: Information needed to process Pt's diabetic testing supplies order that they received. documented in this encounter Plan of Treatment Upcoming Encounters Date Type Specialty Care Team Description 06/03/2022 Office Visit Internal Medicine David Duke PA-C 200 [facility] [place] [address] 06/25/2022 Office Visit Internal Medicine Briseyda Barber MD 200 [facility] [place] [address] 06/25/2022 Office Visit Cardiology Hammad Lopez, 132 [facility] [place] [address] 07/11/2022 Office Visit Hematology Oncology Ida Cueva CRNP 400 [facility] [place] [address] Health Maintenance Due [...] Additional history exists CKD PHOS USE SMARTSET 68549 02/19/202302/10, 03/09/2021, 03/22/2019 DIABETES-EYE EXAM 03/08/2023 03/08/2022, , 08/07/2020, Additional history exists CKD HGB USE SMARTSET 45515 05/13/202305/13, 05/13/2022, 04/11/2022, Additional history exists O2 [...] Documents on File Type Date Recorded Patient Actuarial Assistant Expl 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 Directive Advanced Directive Advanced Directive Care Teams News Camera Operator Relationship Specialty Start Date End Date Marcela Pinto MD [address] [place] [address] PCP - General Internal Medicine 08/04/14 documented as of this encounter
--- OUTSIDE RECORDS SUMMARY | 2023-06-18 02:50 | External Medical Summary | Summary of Care ---
Author Name Unknown Organization [place] [address] Care Team Providers Care Litigation Docket Manager Name Role Phone Marcela Pinto MD Primary Care Provider + Reason for Visit * Reason Onset Date Comments Test Results 05/31/2022 Encounter Details Date Type Department Care Team Description 05/31/2022 Telephone General Internal Medicine [facility] 200 [facility] [place] [address] Nicolas Oro MD 200 [place] [address] Test Results Allergies Active Allergy Reactions Severity Noted Date Comments Valsartan 07/10/2010 Enalapril 05/21/2006 Escitalopram Oxalate Nausea/vomiting 10/11/2009 Nauseated Iodinated Diagnostic Agents Nausea/vomiting 05/2010 IV Contrast Iodine Hives 12/18/2009 IV Contrast Metoprolol Tartrate 11/18/2006 Made pulse low [place] Oil-Black Currant-Vit E 07/10/2010 Verapamil 03/21/2004 Bupropion [...] Asthma with severity to be determined,COPD, moderate ([facility]) USE ONE NEBULIZER TREATMENT TWICE A DAY DIRECTED FOR WORSENING ASTHMA. J45.909, J44.9 225 mL 1 06/29/2019 Active Albuterol Sulfate (VENTOLIN HFA) 108 (90 Base) MCG/ACT AERS Inhale 2 Puffs by mouth 2 times a day. 0 12/27/2019 Active Lancets MISCIndications:Type 2 diabetes mellitus with hemoglobin A1c goal of less than 7.0% ([facility]) Use as directed. USE TO TEST [...] Respimat 1.25 MCG/ACT Inhalation Aerosol Solution (Tiotropium [place] Monohydrate) Inhale by mouth. 0 Active Furosemide [...] Chronic hypoxemic respiratory failure Paroxysmal atrial fibrillation 03/11/202 1 Morbid obesity with BMI of 40.0-44.9, [...] Hypoxemia 10/08/2011 10/30/2015 Genetic Sleep Disorder Research Other*[id number] 07/25/2011 05/15/2016 Diverticulitis of colon 07/25/2011 01/06/20 [...] mRNA, LNP-s, No Pre serve, 2-Dose Series ([employer]) 08/21/2021,12/22/2020,2020 COVID-19, LNP-s, No Preserve , [...] Telephone Encounter - Bobbi Fitch LPN - 05/31/2022 12:07 PM EDT Patient notified of message below. Verbalized understanding. ----- Message from Nicolas Oro MD sent at 05/31/2022 11:57 AM EDT ----- Please call - may have a diverticular abscess or infection measuring 3 cm. I would suggest ER as may need to have surgery to have this drained. Has a stable left adrenal nodule, f/u pcp fo rhtis documented in this encounter Plan of Treatment Upcoming Encounters Date Type Specialty Care Team Description 06/03/2022 Office Visit Internal Medicine David Duke PA-C [address] [place] [address] 06/25/2022 Office Visit Internal Medicine Briseyda Barber MD [address] [place] [address] 06/25/2022 Office Visit Cardiology Hammad Lopez, DO [address] [place] [address] 07/11/2022 Office Visit Hematology Oncology Ida Cueva CRNP [address] [place] [address] Health Maintenance Due Date [...] Additional history exists CKD PHOS USE SMARTSET 77950 02/19/2023 05, 03/09/2021, 03/22/2019 DIABETES-EYE EXAM 03/08/2023 03/08/2022, , 08/07/2020, Additional history exists CKD HGB USE SMARTSET 11845 05/13/202305/13, 05/13/2022, 04/11/2022, Additional history exists O2 [...] Documents on File Type Date Recorded Patient Greenhouse Specialist Expl 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 Directive Advanced Directive Advanced Directive Care Teams Litigation Docket Manager Relationship Specialty Start Date End Date Marcela Pinto MD 200 [place] [address] PCP - General Internal Medicine 08/04/14 documented as of this encounter
--- OUTSIDE RECORDS SUMMARY | 2023-06-18 02:50 | External Medical Summary | Summary of Care ---
Author Name Unknown Organization [place] [address] Care Team Providers Care History Card Clerk Name Role Phone Marcela Pinto MD Primary Care Provider + Reason for Visit * Reason Onset Date Comments Test Results 05/31/2022 Encounter Details Date Type Department Care Team Description 05/31/2022 Telephone General Internal Medicine [facility] 200 [place] [address] Nicolas Oro MD 200 [place] [address] Test Results Allergies Active Allergy Reactions Severity Noted Date Comments Valsartan 07/10/2010 Enalapril 05/21/2006 Escitalopram Oxalate Nausea/vomiting 10/11/2009 Nauseated Iodinated Diagnostic Agents Nausea/vomiting 05/2010 IV Contrast Iodine Hives 12/18/2009 IV Contrast Metoprolol Tartrate 11/18/2006 Made pulse low [place] Oil-Black Currant-Vit E 07/10/2010 Verapamil 03/21/2004 Bupropion [...] with severity to be determined,COPD, moderate ([facility]) USE ONE NEBULIZER TREATMENT TWICE A DAY DIRECTED FOR WORSENING ASTHMA. J45.909, J44.9 225 mL 1 06/29/2019 Active Albuterol Sulfate (VENTOLIN HFA) 108 (90 Base) MCG/ACT AERS Inhale 2 Puffs by mouth 2 times a day. 0 12/27/2019 Active Lancets MISCIndications:Type 2 diabetes mellitus with hemoglobin A1c goal of less than 7.0% ([facility]) Use as directed. USE TO TEST [...] Respimat 1.25 MCG/ACT Inhalation Aerosol Solution (Tiotropium [place] Monohydrate) Inhale by mouth. 0 Active Furosemide [...] Hypoxemia 10/08/2011 10/30/2015 Genetic Sleep Disorder Research Other*[id number] 07/25/2011 05/15/2016 Diverticulitis of colon 07/25/2011 01/06/20 [...] Patient notified of message below. Verbalized understanding. CT scan report faxed to [facility] and ER has been notified. ----- Message from Nicolas Oro MD sent [...] Visit Internal Medicine David Duke PA-C [address] [facility] [place] [address] 06/25/2022 Office Visit Internal Medicine Briseyda Barber MD 200 [facility] [place] [address] 06/25/2022 Office Visit Cardiology Hammad Lopez DO [address] [place] [address] 07/11/2022 Office Visit Hematology Oncology Ida Cueva CRNP [address] [place] [address] Health Maintenance Due Date [...] Additional history exists CKD PHOS USE SMARTSET 49930 02/19/2023 05, 03/09/2021, 03/22/2019 DIABETES-EYE EXAM 03/08/2023 03/08/2022, , 08/07/2020, Additional history exists CKD HGB USE SMARTSET 70587 05/13/202305/13, 05/13/2022, 04/11/2022, Additional history exists O2 [...] Documents on File Type Date Recorded Patient Check Totaler Expl anation Advanced 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 Directive Advanced Directive Advanced Directive Care Teams History Card Clerk Relationship Specialty Start Date End Date Marcela Pinto MD 200 [place] [address] PCP - General Internal Medicine 08/04/14 documented as of this encounter
--- OUTSIDE RECORDS SUMMARY | 2023-06-18 02:50 | External Medical Summary | Summary of Care ---
Author Name Unknown Organization [place] [address] Care Team Providers Care Truss Maker Name Role Phone Marcela Pinto MD Primary Care Provider + Reason for Visit * Reason Onset Date Comments Fax 05/20/2022 Fax 05/28/2022 Encounter Details Date Type Department Care Team Description 05/20/2022 Telephone General Internal Medicine [facility] 200 [facility] [place] [address] Marcela Pinto MD 200 [place] [address] Fax; Fax Allergies Active Allergy Reactions Severity Noted Date Comments Valsartan 07/10/2010 Enalapril 05/21/2006 Escitalopram Oxalate Nausea/vomiting 10/11/2009 Nauseated Iodinated Diagnostic Agents Nausea/vomiting 05/2010 IV Contrast Iodine Hives 12/18/2009 IV Contrast Metoprolol Tartrate 11/18/2006 Made pulse low [place] Oil-Black Currant-Vit E 07/10/2010 Verapamil 03/21/2004 Bupropion Hcl 10/30/2009 Makes pt sick in the stomach documented as of this encounter (statuses as of 05/28/2022) Medications Medication Sig Dispensed Refills Start Date [...] Respimat 1.25 MCG/ACT Inhalation Aerosol Solution (Tiotropium [place] Monohydrate) Inhale by mouth. 0 Active Furosemide [...] as of this encounter (statuses as of 05/28/2022) Active Problems Problem Noted Date Gastroparesis 05/13/2022 [...] as of this encounter (statuses as of 05/28/2022) Resolved Problems Problem Noted Date Resolved Date [...] Hypoxemia 10/08/2011 10/30/2015 Genetic Sleep Disorder Research Other*[id number] 07/25/2011 05/15/2016 Diverticulitis of colon 07/25/2011 01/06/20 [...] as of this encounter (statuses as of 05/28/2022) Immunizations Name Administration Dates Next Due COVID-19 mRNA, LNP-s, No Pre serve, 2-Dose Series ([email or web address]) 08/21/2021,12/22/2020,2020 COVID-19, LNP-s, No Preserve , Tyler-sucrose, [...] Miscellaneous Notes * Telephone Encounter - JORDAN Cifuentes - [...] as well as doctor's signature.. Fax number: [phone] Attention to Name/Company: [employer] Any additional information?: Information needed to process Pt's diabetic testing supplies order that they received. documented in this encounter Plan of Treatment Upcoming Encounters Date Type Specialty Care Team Description 05/28/2022 Imaging Radiology 06/03/2022 Office Visit Internal Medicine David Duke PA-C [address] [place] [address] [address] 06/25/2022 Office Visit Internal Medicine Briseyda Barber MD [address] [place] [address] 06/25/2022 Office Visit Cardiology Hammad Lopez, [address] [place] [address] 07/11/2022 Office Visit Hematology Oncology Ida Cueva CRNP [address] [place] [address] Health Maintenance Due Date [...] Additional history exists CKD PHOS USE SMARTSET 36273 02/19/2023 05, 03/09/2021, 03/22/2019 DIABETES-EYE EXAM 03/08/2023 03/08/2022, , 08/07/2020, Additional history exists CKD HGB USE SMARTSET 58373 05/13/202305/13, 05/13/2022, 04/11/2022, Additional history exists O2 [...] File Type Date Recorded Patient Director Of Marketing Analytics Expl anation Advanced 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 Directive Advanced Directive Advanced Directive Care Teams Truss Maker Relationship Specialty Start Date End Date Marcela Pinto MD [address] [place] [address] PCP - General Internal Medicine 08/04/14 documented as of this encounter
--- OUTSIDE RECORDS SUMMARY | 2023-06-18 02:50 | External Medical Summary | Summary of Care ---
Author Name Unknown Organization [place] [address] Care Team Providers Care Soil Sampler Name Role Phone Marcela Pinto MD Primary Care Provider + Reason for Visit * Reason Onset Date Comments Fax 05/20/2022 Fax 05/28/2022 Encounter Details Date Type Department Care Team Description 05/20/2022 Telephone General Internal Medicine [facility] 200 [facility] [place] [address] Marcela Pinto MD 200 [place] [address] Fax; Fax Allergies Active Allergy Reactions Severity Noted Date Comments Valsartan 07/10/2010 Enalapril 05/21/2006 Escitalopram Oxalate Nausea/vomiting 10/11/2009 Nauseated Iodinated Diagnostic Agents Nausea/vomiting 05/2010 IV Contrast Iodine Hives 12/18/2009 IV Contrast Metoprolol Tartrate 11/18/2006 Made pulse low [place] Oil-Black Currant-Vit E 07/10/2010 Verapamil 03/21/2004 Bupropion [...] be determined,COPD, moderate ([facility]) USE ONE NEBULIZER TREATMENT TWICE A DAY DIRECTED FOR WORSENING ASTHMA. J45.909, J44.9 225 mL 1 06/29/2019 Active Albuterol Sulfate (VENTOLIN HFA) 108 (90 Base) MCG/ACT AERS Inhale 2 Puffs by mouth 2 times a day. 0 12/27/2019 Active Lancets MISCIndications:Type 2 diabetes mellitus with hemoglobin A1c goal of less than 7.0% ([facility]) Use as directed. USE TO TEST BLOOD [...] Respimat 1.25 MCG/ACT Inhalation Aerosol Solution (Tiotropium [place] Monohydrate) Inhale by mouth. 0 Active Furosemide [...] Hypoxemia 10/08/2011 10/30/2015 Genetic Sleep Disorder Research Other*[id number] 07/25/2011 05/15/2016 Diverticulitis of colon 07/25/2011 01/06/20 [...] mRNA, LNP-s, No Pre serve, 2-Dose Series ([employer]) 08/21/2021,12/22/2020,2020 COVID-19, LNP-s, No Preserve , Tyler-sucrose, [...] as well as doctor's signature.. Fax number: [phone] Attention to Name/Company: [employer] Any additional information?: Information needed to process Pt's diabetic testing supplies order that they received. documented in this encounter Plan of Treatment Upcoming Encounters Date Type Specialty Care Team Description 06/03/2022 Office Visit Internal Medicine David Duke PA-C 200 [place] [address] 06/25/2022 Office Visit Internal Medicine Briseyda Barber MD 200 [place] [address] 06/25/2022 Office Visit [facility] [address] 07/11/2022 Office Visit Hematology Oncology Ida Cueva CRNP 400 [facility] [place] [address] Health Maintenance Due Date Last [...] Additional history exists CKD PHOS USE SMARTSET 10559 02/19/202302/10, 03/09/2021, 03/22/2019 DIABETES-EYE EXAM 03/08/2023 03/08/2022, , 08/07/2020, Additional history exists CKD HGB USE SMARTSET 69614 05/13/202305/13, 05/13/2022, 04/11/2022, Additional history exists O2 [...] Documents on File Type Date Recorded 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
--- OUTSIDE RECORDS SUMMARY | 2023-06-18 02:51 | External Medical Summary | Summary of Care ---
Author Name Unknown Organization [place] [address] Care Team Providers Care Body Welder Name Role Phone Marcela Pinto MD Primary Care Provider + Reason for Visit * Reason Onset Date Comments NEW PATIENT 05/15/2022 SUDHAKAR SEEN SOONER Encounter Details Date Type Department Care Team Description 05/15/2022 Telephone Hematology/Oncology [facility] [address] [place], [place] [id number] Ida Cueva CRNP [address] [place] [address] NEW PATIENT (SUDHAKAR SEEN SOONER) Allergies Active Allergy Reactions Severity Noted Date Comments Valsartan 07/10/2010 Enalapril 05/21/2006 Escitalopram Oxalate Nausea/vomiting 10/11/2009 Nauseated Iodinated Diagnostic Agents Nausea/vomiting 05/2010 IV Contrast Iodine Hives 12/18/2009 IV Contrast Metoprolol Tartrate 11/18/2006 Made pulse low [place] Oil-Black Currant-Vit E 07/10/2010 Verapamil 03/21/2004 Bupropion Hcl 10/30/2009 Makes pt sick in the stomach documented as of this encounter (statuses as of 05/15/2022) Medications Medication Sig Dispensed Refills Start Date [...] Respimat 1.25 MCG/ACT Inhalation Aerosol Solution (Tiotropium [place] Monohydrate) Inhale by mouth. 0 Active Furosemide [...] EVERY DAY 90 Tablet 2 03/25/2022 Active HYDROcodone-Acetamin ophen 5-325 MG Oral TabletIndications:Ge neralized osteoarthritis Take by mouth 1 Tablet every 6 hours as needed for Pain, Mild. 120 Tablet 0 04/16/2022 Active Ferrous Sulfate 325 (65 Fe) MG [...] with Benadryl 3 Tablet 0 05/13/2022 Active documented as of this encounter (statuses as of 05/15/2022) Active Problems Problem Noted Date Gastroparesis 05/13/2022 [...] as of this encounter (statuses as of 05/15/2022) Resolved Problems Problem Noted Date Resolved Date [...] Hypoxemia 10/08/2011 10/30/2015 Genetic Sleep Disorder Research Other*[id number] 07/25/2011 05/15/2016 Diverticulitis of colon 07/25/2011 01/06/20 [...] as of this encounter (statuses as of 05/15/2022) Immunizations Name Administration Dates Next Due COVID-19 mRNA, LNP-s, No Pre serve, 2-Dose Series ([employer]) 08/21/2021,12/22/2020,2020 COVID-19, LNP-s, No Preserve , Tyler-sucrose, [...] encounter Miscellaneous Notes * Telephone Encounter - Olga Lassiter CMA - 05/15/2022 11:38 AM EDT Referral received for patient to be seen as New Hematology Consult requested by NENITA Dailey for diagnosis of Anemia, Thrombocytosis. Called home number; left message on voicemail to contact our office to set up new patient appt. documented in this encounter Plan of Treatment Upcoming Encounters Date Type Specialty Care Team Description 05/28/2022 Imaging Radiology 06/03/2022 Office Visit Internal Medicine David Duke PA-C [address] [place] [address] 06/25/2022 Office Visit Internal Medicine Briseyda Barber MD [address] [place] [address] [address] 06/25/2022 Office Visit Cardiology Hammad Lopez, DO [address] [address] Health Maintenance Due Date Last Done Comments [...] Additional history exists CKD PHOS USE SMARTSET 62834 02/19/202302/10, 03/09/2021, 03/22/2019 DIABETES-URINE ALBUMIN/CREATININE EVERY 12 MONTHS 02/19/2023 02/19/2022, 07/09/2019, 07/27/2018, Additional history exists DIABETES-EYE EXAM 03/08/2023 03/08/2022, , 08/07/2020, Additional history exists CKD HGB USE SMARTSET 92495 05/13/202305/13, 05/13/2022, 04/11/2022, Additional history exists O2 ASSESSMENT COMPLETED IN PAST YEAR FOR COPD 05/13/2023 05/13/2022 DXA Scan 08/08/2025 08/08/2020, 07/, 06/19/2010, Additional [...] Documents on File Type Date Recorded 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
--- OUTSIDE RECORDS SUMMARY | 2023-06-18 02:51 | External Medical Summary | Summary of Care ---
Author Name Unknown Organization [place] [address] Care Team Providers Care Cable Placer Name Role Phone Marcela Pinto MD Primary Care Provider + Encounter Details Date Type Department Care Team Description 05/20/2022 Scan Encounter General Internal Medicine [facility] [address] [facility] [place] [address] Marcela Pinto MD [address] [place] [address] <No scans attached> Allergies Active Allergy Reactions Severity Noted Date Comments Valsartan 07/10/2010 Enalapril 05/21/2006 Escitalopram Oxalate Nausea/vomiting 10/11/2009 Nauseated Iodinated Diagnostic Agents Nausea/vomiting 05/2010 IV Contrast Iodine Hives 12/18/2009 IV Contrast Metoprolol Tartrate 11/18/2006 Made pulse low [place] Oil-Black Currant-Vit E 07/10/2010 Verapamil 03/21/2004 Bupropion Hcl 10/30/2009 Makes pt sick in the stomach documented as of this encounter (statuses as of 05/21/2022) Medications Medication Sig Dispensed Refills Start Date [...] moderate ([facility]) USE ONE NEBULIZER TREATMENT TWICE A DAY DIRECTED FOR WORSENING ASTHMA. J45.909, J44.9 225 mL 1 06/29/2019 Active Albuterol Sulfate (VENTOLIN HFA) 108 (90 Base) MCG/ACT AERS Inhale 2 Puffs by mouth 2 times a day. 0 12/27/2019 Active Lancets MISCIndications:Type 2 diabetes mellitus with hemoglobin A1c goal of less than 7.0% ([facility]) Use as directed. USE TO TEST [...] Respimat 1.25 MCG/ACT Inhalation Aerosol Solution (Tiotropium [place] Monohydrate) Inhale by mouth. 0 Active Furosemide [...] as of this encounter (statuses as of 05/21/2022) Active Problems Problem Noted Date Gastroparesis 05/13/2022 [...] as of this encounter (statuses as of 05/21/2022) Resolved Problems Problem Noted Date Resolved Date [...] Hypoxemia 10/08/2011 10/30/2015 Genetic Sleep Disorder Research Other*[id number] 07/25/2011 05/15/2016 Diverticulitis of colon 07/25/2011 01/06/20 [...] as of this encounter (statuses as of 05/21/2022) Immunizations Name Administration Dates Next Due COVID-19 mRNA, LNP-s, No Pre serve, 2-Dose Series ([employer]) 08/21/2021,12/22/2020,2020 COVID-19, LNP-s, No Preserve , Tyler-sucrose, [...] Visit Internal Medicine David Duke PA-C [address] [facility] [place] [address] 06/25/2022 Office Visit Internal Medicine Briseyda Barber MD [address] [facility] [place] [address] 06/25/2022 Office Visit Cardiology Hammad Lopez, DO [address] [facility] [place] [address] 07/11/2022 Office Visit Hematology Oncology Ida Cueva CRNP [address] [place] [address] Health Maintenance Due Date [...] Additional history exists CKD PHOS USE SMARTSET 91690 02/19/202302/10, 03/09/2021, 03/22/2019 DIABETES-URINE ALBUMIN/CREATININE EVERY 12 MONTHS 02/19/2023 02/19/2022, 07/09/2019, 07/27/2018, Additional history exists DIABETES-EYE EXAM 03/08/2023 03/08/2022, , 08/07/2020, Additional history exists CKD HGB USE SMARTSET 90769 05/13/202305/13, 05/13/2022, 04/11/2022, Additional history exists O2 [...] Documents on File Type Date Recorded Patient Control Room Helper Expl 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 Directive Advanced Directive Advanced Directive Care Teams Cable Placer Relationship Specialty Start Date End Date Marcela Pinto MD [address] [place] [address] PCP - General Internal Medicine 08/04/14 documented as of this encounter
--- OUTSIDE RECORDS SUMMARY | 2023-06-18 02:51 | External Medical Summary | Summary of Care ---
Author Name Unknown Organization [place] [address] Care Team Providers Care Boat Puller Name Role Phone Marcela Pinto MD Primary Care Provider + Reason for Visit * Reason Onset Date Comments Test Results 05/16/2022 Encounter Details Date Type Department Care Team Description 05/16/2022 Telephone General Internal Medicine [facility] [address] [facility] [address] David Duke PA-C [address] [facility] [place] [address] Test Results Allergies Active Allergy Reactions Severity Noted Date Comments Valsartan 07/10/2010 Enalapril 05/21/2006 Escitalopram Oxalate Nausea/vomiting 10/11/2009 Nauseated Iodinated Diagnostic Agents Nausea/vomiting 05/2010 IV Contrast Iodine Hives 12/18/2009 IV Contrast Metoprolol Tartrate 11/18/2006 Made pulse low [place] Oil-Black Currant-Vit E 07/10/2010 Verapamil 03/21/2004 Bupropion Hcl 10/30/2009 Makes pt sick in the stomach documented as of this encounter (statuses as of 05/16/2022) Medications Medication Sig Dispensed Refills Start Date [...] Respimat 1.25 MCG/ACT Inhalation Aerosol Solution (Tiotropium [place] Monohydrate) Inhale by mouth. 0 Active Furosemide [...] as of this encounter (statuses as of 05/16/2022) Active Problems Problem Noted Date Gastroparesis 05/13/2022 [...] as of this encounter (statuses as of 05/16/2022) Resolved Problems Problem Noted Date Resolved Date [...] Hypoxemia 10/08/2011 10/30/2015 Genetic Sleep Disorder Research Other*[id number] 07/25/2011 05/15/2016 Diverticulitis of colon 07/25/2011 01/06/20 [...] as of this encounter (statuses as of 05/16/2022) Immunizations Name Administration Dates Next Due COVID-19 mRNA, LNP-s, No Pre serve, 2-Dose Series ([employer]) 08/21/2021,12/22/2020,2020 COVID-19, LNP-s, No Preserve , Tyler-sucrose, [...] encounter Miscellaneous Notes * Telephone Encounter - Nicole Saeed LPN - 05/16/2022 9:58 AM EDT Patient is calling. Given message. She already has an appt. * Telephone Encounter - Teresita Raymundo LPN - 05/16/2022 9:53 AM EDT left message for patient to call back. Pt already scheduled with hematology * Telephone Encounter - Teresita Raymundo LPN - 05/16/2022 9:52 AM EDT ----- Message from David Duke PA-C sent at 05/14/2022 3:45 PM EDT ----- Patient with continued iron deficiency. Persistent elevated platelets and and white blood cell count. Recommend hematology evaluation. documented in this encounter Plan of Treatment Upcoming Encounters Date Type Specialty Care Team Description 05/28/2022 Imaging Radiology 06/03/2022 Office Visit Internal Medicine David Duke PA-C 200 [place] [address] 06/25/2022 Office Visit Internal Medicine Briseyda Barber MD [address] [facility] [place] [address] 06/25/2022 Office Visit Cardiology Hammad Lopez DO [address] [facility] [place] [address] 07/11/2022 Office Visit Hematology Oncology Ida Cueva CRNP [address] [facility] [place] [address] Health Maintenance [...] Additional history exists CKD PHOS USE SMARTSET 61997 02/19/202302/10, 03/09/2021, 03/22/2019 DIABETES-URINE ALBUMIN/CREATININE EVERY 12 MONTHS 02/19/2023 02/19/2022, 07/09/2019, 07/27/2018, Additional history exists DIABETES-EYE EXAM 03/08/2023 03/08/2022, , 08/07/2020, Additional history exists CKD HGB USE SMARTSET 91157 05/13/202305/13, 05/13/2022, 04/11/2022, Additional history exists O2 [...] Documents on File Type Date Recorded 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
--- OUTSIDE RECORDS SUMMARY | 2023-06-18 02:51 | External Medical Summary | Summary of Care ---
Author Name Unknown Organization [place] [address] Care Team Providers Care Talent Acquisition Associate Name Role Phone Marcela Pinto MD Primary Care Provider + Reason for Visit * Reason Onset Date Comments Test Results 05/16/2022 Encounter Details Date Type Department Care Team Description 05/16/2022 Telephone General Internal Medicine [facility] [address] [facility] [place] [address] David Duke PA-C [address] [facility] [place] [address] Test Results Allergies Active Allergy Reactions Severity Noted Date Comments Valsartan 07/10/2010 Enalapril 05/21/2006 Escitalopram Oxalate Nausea/vomiting 10/11/2009 Nauseated Iodinated Diagnostic Agents Nausea/vomiting 05/2010 IV Contrast Iodine Hives 12/18/2009 IV Contrast Metoprolol Tartrate 11/18/2006 Made pulse low [place] Oil-Black Currant-Vit E 07/10/2010 Verapamil 03/21/2004 Bupropion Hcl 10/30/2009 Makes pt sick in the stomach documented as of this encounter (statuses as of 05/20/2022) Medications Medication Sig Dispensed Refills Start Date [...] Respimat 1.25 MCG/ACT Inhalation Aerosol Solution (Tiotropium [place] Monohydrate) Inhale by mouth. 0 Active Furosemide [...] as of this encounter (statuses as of 05/20/2022) Active Problems Problem Noted Date Gastroparesis 05/13/2022 [...] as of this encounter (statuses as of 05/20/2022) Resolved Problems Problem Noted Date Resolved Date [...] Hypoxemia 10/08/2011 10/30/2015 Genetic Sleep Disorder Research Other*[id number] 07/25/2011 05/15/2016 Diverticulitis of colon 07/25/2011 01/06/20 [...] as of this encounter (statuses as of 05/20/2022) Immunizations Name Administration Dates Next Due COVID-19 mRNA, LNP-s, No Pre serve, 2-Dose Series ([employer]) 08/21/2021,12/22/2020,2020 COVID-19, LNP-s, No Preserve , Tyler-sucrose, [...] Visit Internal Medicine David Duke PA-C 200 [place] [address] 06/25/2022 Office Visit Internal Medicine Briseyda Barber MD 200 [facility] [place] [address] 06/25/2022 Office Visit Cardiology Hammad Lopez DO [address] [facility] [place] [address] 07/11/2022 Office Visit Hematology Oncology Ida Cueva CRNP 400 [facility] [place] [address] Health Maintenance [...] Additional history exists CKD PHOS USE SMARTSET 29381 02/19/202302/10, 03/09/2021, 03/22/2019 DIABETES-URINE ALBUMIN/CREATININE EVERY 12 MONTHS 02/19/2023 02/19/2022, 07/09/2019, 07/27/2018, Additional history exists DIABETES-EYE EXAM 03/08/2023 03/08/2022, , 08/07/2020, Additional history exists CKD HGB USE SMARTSET 93948 05/13/202305/13, 05/13/2022, 04/11/2022, Additional history exists O2 [...] Documents on File Type Date Recorded Patient Sustainability Executive Director Expl 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 Directive Advanced Directive Advanced Directive Care Teams Talent Acquisition Associate Relationship Specialty Start Date End Date Marcela Pinto MD [address] [place] [address] PCP - General Internal Medicine 08/04/14 documented as of this encounter
--- OUTSIDE RECORDS SUMMARY | 2023-06-18 02:51 | External Medical Summary | Summary of Care ---
Author Name Unknown Organization [place] [address] Care Team Providers Care Pnp Name Role Phone Marcela Pinto MD Primary Care Provider + Reason for Visit * Reason Onset Date Comments NEW PATIENT 05/15/2022 SUDHAKAR SEEN SOONER Encounter Details Date Type Department Care Team Description 05/15/2022 Telephone Hematology/Oncology [facility] [address] [place], [place] [phone] Ida Cueva CRNP [address] [place] [address] NEW PATIENT (SUDHAKAR SEEN SOONER) Allergies Active Allergy Reactions Severity Noted Date Comments Valsartan 07/10/2010 Enalapril 05/21/2006 Escitalopram Oxalate Nausea/vomiting 10/11/2009 Nauseated Iodinated Diagnostic Agents Nausea/vomiting 05/2010 IV Contrast Iodine Hives 12/18/2009 IV Contrast Metoprolol Tartrate 11/18/2006 Made pulse low [place] Oil-Black Currant-Vit E 07/10/2010 Verapamil 03/21/2004 Bupropion [...] Respimat 1.25 MCG/ACT Inhalation Aerosol Solution (Tiotropium [place] Monohydrate) Inhale by mouth. 0 Active Furosemide [...] Hypoxemia 10/08/2011 10/30/2015 Genetic Sleep Disorder Research Other*[id number] 07/25/2011 05/15/2016 Diverticulitis of colon 07/25/2011 01/06/20 [...] mRNA, LNP-s, No Pre serve, 2-Dose Series ([employer]) 08/21/2021,12/22/2020,2020 COVID-19, LNP-s, No Preserve , Tyler-sucrose, [...] Encounter - Olga Lassiter CMA - 05/15/2022 1:38 PM EDT Daughter called stated she was returning my call to set up Nina for a New patient appt. Agreed to be scheduled for 07/11 at 1pm with NIECY Nava and put on cancellation list for sooner appt * Telephone Encounter - Olga Lassiter CMA - 05/15/2022 1:32 PM EDT Called cell; left message on voicemail * Telephone Encounter - Raudel Haas CMA - 05/15/2022 1:27 PM EDT Pt called and left a message returning call in regards to scheduling a new pt appt. She can be reached at [phone]. * Telephone Encounter - Olga Lassiter CMA [...] Visit Internal Medicine David Duke PA-C [address] [place] [address] 06/25/2022 Office Visit Internal Medicine Briseyda Barber MD 200 [facility] [place] [address] 06/25/2022 Office Visit Cardiology Hammad Lopez, DO [address] [facility] [place] [address] 07/11/2022 Office Visit Hematology Oncology Ida Cueva CRNP 400 [facility] [place] [address] Health Maintenance [...] Additional history exists CKD PHOS USE SMARTSET 23407 02/19/202302/10, 03/09/2021, 03/22/2019 DIABETES-URINE ALBUMIN/CREATININE EVERY 12 MONTHS 02/19/2023 02/19/2022, 07/09/2019, 07/27/2018, Additional history exists DIABETES-EYE EXAM 03/08/2023 03/08/2022, , 08/07/2020, Additional history exists CKD HGB USE SMARTSET 50821 05/13/202305/13, 05/13/2022, 04/11/2022, Additional history exists O2 [...] Documents on File Type Date Recorded 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
--- OUTSIDE RECORDS SUMMARY | 2023-06-18 02:51 | External Medical Summary | Summary of Care ---
Author Name Unknown Organization [place] [address] Care Team Providers Care Road Manager Name Role Phone Marcela Pinto MD Primary Care Provider + Reason for Referral * Evaluate & Treat - Unlimited Visits (Within 30 days (routine)) - Pending Review Specialty Diagnoses / Procedures Referred By Miguel Angel t Referred To Contact Hematology/Oncology / Hematology Oncology Diagnoses Anemia, unspecified type Thrombocytosis Leukocytosis, unspecified type David Duke PA-C [address] [place] [address] [address] Referral ID Status Reason Start Date Expiration Date Visits Requested Visits Authorized [id number] Pending Review Specialty Services Required 05/14/[phone] Question Answer Referral Priority Within 30 days (routine) Reason for Referral Anemia Encounter Details Date Type Department Care Team Description 05/14/2022 Orders Only General Internal Medicine [facility] [address] [place] [address] David Duke PA-C [address] [place] [facility] [place] [address] Anemia, unspecified type*; Thrombocytosis; Leukocytosis, unspecified type Allergies Active Allergy Reactions Severity Noted Date Comments Valsartan 07/10/2010 Enalapril 05/21/2006 Escitalopram Oxalate Nausea/vomiting 10/11/2009 Nauseated Iodinated Diagnostic Agents Nausea/vomiting 05/2010 IV Contrast Iodine Hives 12/18/2009 IV Contrast Metoprolol Tartrate 11/18/2006 Made pulse low [place] Oil-Black Currant-Vit E 07/10/2010 Verapamil 03/21/2004 Bupropion Hcl 10/30/2009 Makes pt sick in the stomach documented as of this encounter (statuses as of 05/14/2022) Medications Medication Sig Dispensed Refills Start Date [...] Inhalation Aerosol Solution (Tiotropium [place] Monohydrate) Inhale by mouth. 0 Active Furosemide [...] as of this encounter (statuses as of 05/14/2022) Active Problems Problem Noted Date Gastroparesis 05/13/2022 [...] as of this encounter (statuses as of 05/14/2022) Resolved Problems Problem Noted Date Resolved Date [...] Hypoxemia 10/08/2011 10/30/2015 Genetic Sleep Disorder Research Other*[id number] 07/25/2011 05/15/2016 Diverticulitis of colon 07/25/2011 01/06/20 [...] as of this encounter (statuses as of 05/14/2022) Immunizations Name Administration Dates Next Due COVID-19 mRNA, LNP-s, No Pre serve, 2-Dose Series ([employer]) 08/21/2021,12/22/2020,2020 COVID-19, LNP-s, No Preserve , Tyler-sucrose, [...] Visit Internal Medicine David Duke PA-C 200 [facility] [place] [address] 06/25/2022 Office Visit Internal Medicine Briseyda Barber MD [address] [facility] [place] [address] 06/25/2022 Office Visit Cardiology Hammad Lopez DO [address] [place] [address] Scheduled Referrals Name Type Priority Associated Diagnoses Orde r Schedule HEMATOLOGY/ONCOLOGY REFERRAL OP Referral Within 30 days (routine) Anemia, unspecified type Thrombocytosis Leukocytosis, unspecified type Ordered: 05/14/2022 Health Maintenance Due Date Last Done Comments [...] Additional history exists CKD PHOS USE SMARTSET 93981 02/19/2023 05, 03/09/2021, 03/22/2019 DIABETES-URINE ALBUMIN/CREATININE EVERY 12 MONTHS 02/19/2023 02/19/2022, 07/09/2019, 07/27/2018, Additional history exists DIABETES-EYE EXAM 03/08/2023 03/08/2022, , 08/07/2020, Additional history exists CKD HGB USE SMARTSET 23412 05/13/202305/13, 05/13/2022, 04/11/2022, Additional history exists O2 [...] as of this encounter Visit Diagnoses Diagnosis Anemia, unspecified type- Primary Thrombocytosis Essential thrombocythemia Leukocytosis, unspecified type documented in this encounter Advance Directives Documents on File Type Date Recorded Patient Peer Tutor Expl 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 Directive Advanced Directive Advanced Directive Care Teams Road Manager Relationship Specialty Start Date End Date Marcela Pinto MD 200 [place] [address] PCP - General Internal Medicine 08/04/14 documented as of this encounter
--- OUTSIDE RECORDS SUMMARY | 2023-06-18 02:51 | External Medical Summary | Summary of Care ---
Author Name Unknown Organization [facility] [address] Care Team Providers Care Inside Polisher Name Role Phone Marcela Pinto MD Primary Care Provider + Reason for Visit * Reason Onset Date Comments NEW PATIENT 05/15/2022 SUDHAKAR SEEN SOONER Encounter Details Date Type Department Care Team Description 05/15/2022 Telephone Hematology/Oncology [facility] [address] [place], [place] [id number] Ida Cueva CRNP [address] [place] [address] NEW PATIENT (SUDHAKAR SEEN SOONER) Allergies Active Allergy Reactions Severity Noted Date Comments Valsartan 07/10/2010 Enalapril 05/21/2006 Escitalopram Oxalate Nausea/vomiting 10/11/2009 Nauseated Iodinated Diagnostic Agents Nausea/vomiting 05/2010 IV Contrast Iodine Hives 12/18/2009 IV Contrast Metoprolol Tartrate 11/18/2006 Made pulse low [place] Oil-Black Currant-Vit E 07/10/2010 Verapamil 03/21/2004 Bupropion [...] with severity to be determined,COPD, moderate ([facility]) USE ONE NEBULIZER TREATMENT [...] Respimat 1.25 MCG/ACT Inhalation Aerosol Solution (Tiotropium [place] Monohydrate) Inhale by mouth. 0 Active Furosemide [...] Hypoxemia 10/08/2011 10/30/2015 Genetic Sleep Disorder Research Other*[id number] 07/25/2011 05/15/2016 Diverticulitis of colon 07/25/2011 01/06/20 [...] mRNA, LNP-s, No Pre serve, 2-Dose Series ([employer]) 08/21/2021,12/22/2020,2020 COVID-19, LNP-s, No Preserve , Tyler-sucrose, [...] pt appt. She can be reached at [phone]. * Telephone Encounter - Olga Lassiter CMA [...] Visit Internal Medicine David Duke PA-C [address] [place] [address] 06/25/2022 Office Visit Internal Medicine Briseyda Barber MD [address] [place] [address] 06/25/2022 Office Visit Cardiology Hammad Lopez, [address] [facility] [place] [address] Health Maintenance Due Date Last Done Comments [...] Additional history exists CKD PHOS USE SMARTSET 26310 02/19/2023 05, 03/09/2021, 03/22/2019 DIABETES-URINE ALBUMIN/CREATININE EVERY 12 MONTHS 02/19/2023 02/19/2022, 07/09/2019, 07/27/2018, Additional history exists DIABETES-EYE EXAM 03/08/2023 03/08/2022, , 08/07/2020, Additional history exists CKD HGB USE SMARTSET 24310 05/13/202305/13, 05/13/2022, 04/11/2022, Additional history exists O2 [...] Documents on File Type Date Recorded Patient Histopathologist Expl anation Advanced 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 Directive Advanced Directive Advanced Directive Care Teams Inside Polisher Relationship Specialty Start Date End Date Marcela Pinto MD [address] [place] [address] PCP - General Internal Medicine 08/04/14 documented as of this encounter
--- OUTSIDE RECORDS SUMMARY | 2023-06-18 02:51 | External Medical Summary | Summary of Care ---
Author Name Unknown Organization [place] [address] Care Team Providers Care Rn Chronic Name Role Phone Marcela Pinto MD Primary Care Provider + Encounter Details Date Type Department Care Team Description 05/09/2022 External Data Patient Risk Medial Allergies Active Allergy Reactions Severity Noted Date Comments Valsartan 07/10/2010 Enalapril 05/21/2006 Escitalopram Oxalate Nausea/vomiting 10/11/2009 Nauseated Iodinated Diagnostic Agents Nausea/vomiting 05/2010 IV Contrast Iodine Hives 12/18/2009 IV Contrast Metoprolol Tartrate 11/18/2006 Made pulse low [place] Oil-Black Currant-Vit E 07/10/2010 Verapamil 03/21/2004 Bupropion [...] of less than 7.0% ([facility]) Use as directed. USE TO TEST [...] Delayed Release (PriLOSEC)Indication s:Ischemic colitis ([facility]) TAKE 1 CAPSULE BY MOUTH TWICE [...] fraction and diastolic dysfunction ([facility]),NICM (nonischemic cardiomyopathy) ([facility]),Presence of Watchman left atrial appendage closure device Take 1 tab in the morning and 1/2 tab in the evening. 135 Tablet 3 10/04/2021 Active Spiriva Respimat 1.25 MCG/ACT Inhalation Aerosol Solution (Tiotropium [place] Monohydrate) Inhale by mouth. 0 Active Furosemide 40 MG Oral Tablet (Lasix)Indications:C hronic systolic heart failure (HCC),Paroxysmal atrial fibrillation (HCC),Chronic 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),NICM (nonischemic cardiomyopathy) ([facility]),Chronic atrial fibrillation (HCC),Hospital discharge follow-up,Presence of Watchman [...] be determined,COPD, moderate ([facility]) TAKE 1 PUFF BY MOUTH 4 [...] the morning. 30 Tablet 5 02/19/2022 Active OneSourceDNAuch Verio In Vitro Strip (Glucose Blood) Checks [...] FOR NAUSEA 60 Tablet 2 05/03/2022 Active documented as of this encounter (statuses [...] Hypoxemia 10/08/2011 10/30/2015 Genetic Sleep Disorder Research Other*[id number] 07/25/2011 05/15/2016 Diverticulitis of colon 07/25/2011 01/06/20 [...] mRNA, LNP-s, No Pre serve, 2-Dose Series ([employer]) 08/21/2021,12/22/2020,2020 COVID-19, LNP-s, No Preserve , Tyler-sucrose, [...] Visit Internal Medicine David Duke PA-C [address] [facility] [place] [address] 06/25/2022 Office Visit Internal Medicine Briseyda Barber MD [address] [facility] [place] [address] 06/25/2022 Office Visit Cardiology Hammad Lopez, DO [address] [facility] [place] [address] 07/11/2022 Office Visit Hematology Oncology Ida Cueva CRNP [address] [facility] [place] [address] Health Maintenance Due [...] Additional history exists CKD PHOS USE SMARTSET 46801 02/19/2023 05/, 03/09/2021, 03/22/2019 DIABETES-URINE ALBUMIN/CREATININE EVERY 12 MONTHS 02/19/2023 02/19/2022, 07/09/2019, 07/27/2018, Additional history exists DIABETES-EYE EXAM 03/08/2023 03/08/2022, , 08/07/2020, Additional history exists CKD HGB USE SMARTSET 87710 05/13/202305/13, 05/13/2022, 04/11/2022, Additional history exists O2 [...] Documents on File Type Date Recorded Patient Delicatessen Clerk Expl anation Advanced 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 Directive Advanced Directive Advanced Directive Care Teams Rn Chronic Relationship Specialty Start Date End Date Marcela Pinto MD [address] [place] [address] PCP - General Internal Medicine 08/04/14 documented as of this encounter
--- OUTSIDE RECORDS SUMMARY | 2023-06-18 02:51 | External Medical Summary | Summary of Care ---
Author Name Unknown Organization [place] [address] Care Team Providers Care Pulmonary Physician Name Role Phone Marcela Pinto MD Primary Care Provider + Reason for Visit * Reason Onset Date Comments Medication Refill 05/20/2022 Encounter Details Date Type Department Care Team Description 05/20/2022 Refill General Internal Medicine [facility] [address] [facility] [place] [address] Marcela Pinto MD [address] [facility] [place] [address] GENERAL OSTEOARTHROSIS Allergies Active Allergy Reactions Severity Noted Date Comments Valsartan 07/10/2010 Enalapril 05/21/2006 Escitalopram Oxalate Nausea/vomiting 10/11/2009 Nauseated Iodinated Diagnostic Agents Nausea/vomiting 05/2010 IV Contrast Iodine Hives 12/18/2009 IV Contrast Metoprolol Tartrate 11/18/2006 Made pulse low [place] Oil-Black Currant-Vit E 07/10/2010 Verapamil 03/21/2004 Bupropion [...] :Asthma with severity to be determined,COPD, moderate ([facility]) USE ONE NEBULIZER TREATMENT TWICE A DAY DIRECTED FOR WORSENING ASTHMA. J45.909, J44.9 225 mL 1 9 Active Albuterol Sulfate (VENTOLIN HFA) 108 (90 Base) MCG/ACT AERS Inhale 2 Puffs by mouth 2 times a day. 0 0 Active Lancets MISCIndications:Typ e 2 diabetes mellitus with hemoglobin A1c goal of less than 7.0% ([facility]) Use as directed. 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 135 Tablet 3 1 Active Spiriva Respimat 1.25 MCG/ACT Inhalation Aerosol Solution (Tiotropium [place] Monohydrate) Inhale by mouth. 0 Active Furosemide 40 MG Oral Tablet (Lasix)Indications: Chronic systolic heart failure (HCC),Paroxysmal atrial fibrillation (HCC),Chronic 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),NICM (nonischemic cardiomyopathy) (HCC),Chronic atrial fibrillation (HCC),Hospital discharge follow-up,Presence of Watchman left atrial appendage closure device Take 1.5 Tablets by mouth 2 times a day. 270 Tablet 1 2 Active Lisinopril 2.5 MG Oral Tablet (Prinivil)Indicatio [...] EVERY DAY 90 Tablet 1 2 Active Ipratropium-Albuter ol 20-100 MCG/ACT Inhalation [...] with Benadryl 3 Tablet 0 2 Active HYDROcodone-Acetami nophen 5-325 MG Oral TabletIndications:G eneralized osteoarthritis Take by mouth 1 Tablet every 6 hours as needed for Pain, Mild. 120 Tablet 0 2 Active HYDROcodone-Acetami nophen 5-325 MG Oral TabletIndications:G eneralized osteoarthritis Take by mouth 1 Tablet every 6 hours as needed for Pain, Mild. 120 Tablet 0 2 05/20/20 22 Discontinu ed(Refill) documented as of this [...] Hypoxemia 10/08/2011 10/30/2015 Genetic Sleep Disorder Research Other*[id number] 07/25/2011 05/15/2016 Diverticulitis of colon 07/25/2011 01/06/20 [...] Telephone Encounter - Marcela Pinto MD - 05/20/2022 11:07 AM EDT Signed Prescriptions: Disp Refills HYDROcodone-Acetaminophen 5-325 MG Oral Ta*120 Ta*0 Sig: Take by mouth 1 Tablet every 6 hours as needed for Pain, Mild. Authorizing Provider: MARCELA PINTO * Telephone Encounter - Renetta Michaels RN - 05/20/2022 10:08 AM EDT I have reviewed the patients controlled substance dispensing history in the Prescription Drug Monitoring Program in compliance with the [facility] regulations. Last Tox Screen Results: Results for orders placed or performed in visit on 04/24/21 PAIN MANAGEMENT DRUG PANEL, URINE W/ INTERPRETATION Result Value Compliance Interpretation Based on the medication information provided: The presence of hydrocodone and dihydrocodeine is CONSISTENT with current hydrocodone use. Amphetamine Negative Benzodiazepines Negative Cannabinoids Negative Cocaine Metabolite Negative Hydrocodone / Hydromorphone Refer to confirmation results (A) Methadone Metabolite Negative Morphine / Codeine Refer to confirmation results (A) Oxycodone / Oxymorphone Refer to confirmation results (A) Valid Interpretation Normal Creatinine TIM 75 Narrative Cutoff Concentrations: Drug Level Amphetamines 500 ng/mL Benzodiazepines 100 ng/mL Cannabinoids 50 ng/mL Cocaine Metabolite 150 ng/mL Hydrocodone / Hydromorphone 100 ng/mL Methadone Metabolite 100 ng/mL Morphine / [...] results can be found in Results Review. Hydrocodone-acetaminophen 5-325 mg 1 tab every 6 hr as needed for pain, moderate Last filled 04/16/22, #120, 30 day supply Next refill due 05/15/22. * Telephone Encounter - Dodie Carson LPN - 05/20/2022 9:08 AM EDT Pending Prescriptions: Disp Refills HYDROcodone-Acetaminophen 5-325 MG Oral T*120 Ta*0 Sig: Take by mouth 1 Tablet every 6 hours as needed for Pain, Mild. 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 Allergic rhinitis J30.9 Nocturnal hypoxia G47.34 Sleep apnea, obstructive G47.33 HTN, goal below 140/90 I10 Hyperlipidemia with target LDL less than 100 E78.5 Controlled substance agreement signed Z79.899 Type 2 diabetes mellitus with hemoglobin A1c goal of less than 7.5% ([facility]) E11.9 Elevated plasma metanephrines R79.89 Irritable bowel syndrome with constipation K58.1 HECTOR (generalized anxiety disorder) F41.1 COPD, group B, 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 ([facility]) J44.9 Morbid obesity with BMI of 40.0-44.9, adult ([facility]) E66.01, Z68.41 Gastro-esophageal reflux disease without esophagitis K21.9 Paroxysmal atrial fibrillation ([facility]) I48.0 Chronic systolic heart failure ([facility]) I50.22 Pulmonary HTN ([facility]) I27.20 Chronic hypoxemic respiratory failure ([facility]) J96.11 Chronic kidney disease, stage 3a ([facility]) N18.31 Subclinical hyperthyroidism E05.90 History of ESBL E. coli infection Z86.19 Type 2 diabetes mellitus with stage 3a chronic kidney disease, without long- term current use ofinsulin ([facility]) E11.22, N18.31 Gastroparesis K31.84 Labs: Lab Results Component Value Date/Time CREATININE - [facility] 1.1 (H) 05/13/2022 02:23 PM CREATININE - [facility] 1.0 05/27/2020 04:51 PM [...] Results Component Value Date/Time POTASSIUM - [facility] 4.9 05/13/2022 02:23 PM POTASSIUM - [facility] 4.0 05/27/2020 04:51 PM [...] Date/Time HEMOGLOBIN A1C - [facility] 6.8 (H) 02/19/2022 04:04 PM HEMOGLOBIN A1C - [facility] 6.8 (H) 08/23/2021 02:34 PM HEMOGLOBIN A1C - [facility] 7.2 (H) 03/09/2021 10:49 AM HEMOGLOBIN A1C - [facility] 6.6 (H) 08/26/2019 02:55 PM HEMOGLOBIN A1C - [facility] 6.8 (H) 07/27/2018 11:32 AM HEMOGLOBIN A1C - [facility] 6.2 01/14/2018 12:03 PM documented in this encounter Plan of Treatment Upcoming Encounters Date Type Specialty Care Team Description 05/28/2022 Imaging Radiology 06/03/2022 Office Visit Internal Medicine David Duke PA-C [address] [facility] [place] [address] 06/25/2022 Office Visit Internal Medicine Briseyda Barber MD [address] [facility] [place] [address] 06/25/2022 Office Visit Cardiology Hammad Lopez DO [address] [facility] [place] [address] 07/11/2022 Office Visit Hematology Oncology Ida Cueva CRNP [address] [place] [address] Health Maintenance Due Date [...] Additional history exists CKD PHOS USE SMARTSET 06872 02/19/2023 05, 03/09/2021, 03/22/2019 DIABETES-URINE ALBUMIN/CREATININE EVERY 12 MONTHS 02/19/2023 02/19/2022, 07/09/2019, 07/27/2018, Additional history exists DIABETES-EYE EXAM 03/08/2023 03/08/2022, , 08/07/2020, Additional history exists CKD HGB USE SMARTSET 92339 05/13/202305/13, 05/13/2022, 04/11/2022, Additional history exists O2 [...] Documents on File Type Date Recorded Patient Financial Service Professional Expl anation Advanced 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 Directive Advanced Directive Advanced Directive Care Teams Pulmonary Physician Relationship Specialty Start Date End Date Marcela Pinto MD [address] [facility] [place] [address] PCP - General Internal Medicine 08/04/14 documented as of this encounter
--- OUTSIDE RECORDS SUMMARY | 2023-06-18 02:51 | External Medical Summary | Summary of Care ---
Author Name Unknown Organization [place] [address] Care Team Providers Care Field Representative/Health Education Name Role Phone Marcela Pinto MD Primary Care Provider + Reason for Visit * Reason Onset Date Comments NEW PATIENT 05/15/2022 SUDHAKAR SEEN SOONER Encounter Details Date Type Department Care Team Description 05/15/2022 Telephone Hematology/Oncology [facility] [address] [place], [place] [phone] Ida Cueva CRNP [address] [place] [address] NEW PATIENT (SUDHAKAR SEEN SOONER) Allergies Active Allergy Reactions Severity Noted Date Comments Valsartan 07/10/2010 Enalapril 05/21/2006 Escitalopram Oxalate Nausea/vomiting 10/11/2009 Nauseated Iodinated Diagnostic Agents Nausea/vomiting 05/2010 IV Contrast Iodine Hives 12/18/2009 IV Contrast Metoprolol Tartrate 11/18/2006 Made pulse low [place] Oil-Black Currant-Vit E 07/10/2010 Verapamil 03/21/2004 Bupropion [...] determined,COPD, moderate ([facility]) USE ONE NEBULIZER TREATMENT TWICE A DAY [...] Respimat 1.25 MCG/ACT Inhalation Aerosol Solution (Tiotropium [place] Monohydrate) Inhale by mouth. 0 Active Furosemide [...] Hypoxemia 10/08/2011 10/30/2015 Genetic Sleep Disorder Research Other*[id number] 07/25/2011 05/15/2016 Diverticulitis of colon 07/25/2011 01/06/20 [...] mRNA, LNP-s, No Pre serve, 2-Dose Series ([employer]) 08/21/2021,12/22/2020,2020 COVID-19, LNP-s, No Preserve , Tyler-sucrose, [...] Miscellaneous Notes * Telephone Encounter - Raudel Haas CMA - 05/15/2022 1:27 PM EDT Pt called and left a message returning call in regards to scheduling a new pt appt. She can be reached at [phone]. * Telephone Encounter - Olga Lassiter CMA [...] Visit Internal Medicine David Duke PA-C [address] [facility] [place] [address] 06/25/2022 Office Visit Internal Medicine Briseyda Barber MD [address] [facility] [place] [address] 06/25/2022 Office Visit Cardiology Hammad Lopez DO [address] [facility] [place] [address] Health Maintenance Due Date Last Done Comments [...] Additional history exists CKD PHOS USE SMARTSET 30149 02/19/2023 05/, 03/09/2021, 03/22/2019 DIABETES-URINE ALBUMIN/CREATININE EVERY 12 MONTHS 02/19/2023 02/19/2022, 07/09/2019, 07/27/2018, Additional history exists DIABETES-EYE EXAM 03/08/2023 03/08/2022, , 08/07/2020, Additional history exists CKD HGB USE SMARTSET 51992 05/13/202305/13, 05/13/2022, 04/11/2022, Additional history exists O2 [...] File Type Date Recorded Patient Director Of Occupational Health Expl anation Advanced 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 Directive Advanced Directive Advanced Directive Care Teams Field Representative/Health Education Relationship Specialty Start Date End Date Marcela Pinto MD [address] [place] [address] PCP - General Internal Medicine 08/04/14 documented as of this encounter
--- OUTSIDE RECORDS SUMMARY | 2023-06-18 02:52 | External Medical Summary ---
Author Name Unknown Address Unknown Organization K01:[facility] - [address] [place] [address] Laboratory Report Ordering Provider Test Date Status ALOK MORGAN 05/13/2022 14:23:40 Final Observation Date Value Abnormality Reference (Units ) Status Ferritin 05/13/2022 14:23:40 193 Above high normal 13 -150 (ng/mL) Final Performing Location [facility] [address] [facility] [address]
--- OUTSIDE RECORDS SUMMARY | 2023-06-18 02:52 | External Medical Summary ---
Author Name Unknown Address Unknown Organization K01:[facility] [place] [address] [place] [address] Laboratory Report Ordering Provider Test Date Status ALOK MORGAN 05/13/2022 14:23:40 Final Observation Date Value Abnormality Reference (Units ) Status Iron 05/13/2022 14:23:40 17 Below low normal 33-151 (ug/dL) Final Iron-binding capacity 05/13/2022 14:23:40 157 Below low normal 250-425 (ug/dL) Final Transferrin Sat % 05/13/2022 14:23:40 11 Below low normal 15-55 (%) Final Performing Location [facility] - [address] [place] [address]
--- OUTSIDE RECORDS SUMMARY | 2023-06-18 02:52 | External Medical Summary ---
Author Name Unknown Address Unknown Organization K09:[facility] [place] [address] Laboratory Report Ordering Provider Test Date Status ALOK MORGAN 05/13/2022 14:23:40 Final Observation Date Value Abnormality Reference (Units ) Status WBC, Total 05/13/2022 14:23:40 15.13 Above high normal 4 .00-10.80 (K/uL) Final RBC 05/13/2022 14:23:40 3.69 3.85-5.15 (M/uL) Final Hemoglobin 05/13/2022 14:23:40 10.1 Below low normal 12 .0-15.3 (g/dL) Final HCT 05/13/2022 14:23:40 32.9 Below low normal 36. 0-45.2 (%) Final MCV 05/13/2022 14:23:40 89.2 81.5-97.5 (fL) Final MCH 05/13/2022 14:23:40 27.4 27.0-34.0 (pg) Final MCHC 05/13/2022 14:23:40 30.7 32.0-36.0 (g/dL) Final RDW 05/13/2022 14:23:40 15.0 11.5-15.5 (%) Final Platelets 05/13/2022 14:23:40 480 Above high normal 14 0-400 (K/uL) Final MPV 05/13/2022 14:23:40 9.4 6.6-11.1 ( fL) Final Performing Location [facility] [place] [address]
--- OUTSIDE RECORDS SUMMARY | 2023-06-18 02:52 | External Medical Summary ---
Author Name Unknown Address Unknown Organization K09:[facility] [place] [address] Laboratory Report Ordering Provider Test Date Status ALOK MORGAN 05/13/2022 14:23:40 Final Observation Date Value Abnormality Reference (Units ) Status SYNC LEUKOCYTES IN BLOOD BY AUTOMATED COUNT 05/13/2022 14:23:40 15.13 Above high normal 4.00-10.80 (K/uL) Final Segs 05/13/2022 14:23:40 68.8 40.0-75.0 (%) Final Lymphs % 05/13/2022 14:23:40 15.0 Below low normal 18.0-42.0 (%) Final Monos 05/13/2022 14:23:40 14.1 Above high normal 1.0-11.0 (%) Final Eosinophils 05/13/2022 14:23:40 1.9 0.0-6.0 (%) Final Basos 05/13/2022 14:23:40 0.2 0.0-2.0 (%) Final Absolute Segs 05/13/2022 14:23:40 10.40 Above high normal 1.80-7.70 (K/uL) Final Lymphs, absolute 05/13/2022 14:23:40 2.27 1.00-4.80 (K/ul) Final Monos, Abs 05/13/2022 14:23:40 2.14 Above high normal 0.00-1.10 (K/uL) Final Eos, Abs 05/13/2022 14:23:40 0.29 0.00-0.70 (K/uL) Final Basos, Abs 05/13/2022 14:23:40 0.03 0.00-0.20 (K/uL) Final Performing Location [facility] [place] [address]
--- OUTSIDE RECORDS SUMMARY | 2023-06-18 02:52 | External Medical Summary | Summary of Care ---
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 Name Role Phone Marcela Pinto MD Primary Care Provider + Reason for Referral * Precert (Within 10 days (routine)) - Pending Review Specialty Diagnoses / Procedures Referred By Contnesha t Referred To Contact Radiology Diagnoses Lower abdominal pain Diverticulitis of colon Loss of weight Procedures CT ABD/PELVIS W IV AND W ORAL CONTRAST Cathy Dickinson PA-C [address] [facility] [place] [address] Referral ID Status Reason Start Date Expiration Date V isits Requested Visits Authorized [id number] Pending Review 05/13/2022 999 999 Reason for Visit * Reason Comments Acute Pt thinks she has a UTI. Pt is complaining of frequent urination and cannot void bladder completely and lower abdominal pain. Pt thought abdominal pain was diverticulitis and took Cipro and flagyl for 10 days (finished yesterday)and it did not help symptoms. Pt also stated that she has not had a " true " bowel movement in over a month. Pt states its all mucous and liquid taht comes out Pt also stated that Right arm started hurting about a month ago and has frozen ROM too painful to lift, no injury Encounter Details Date Type Department Care Team Description 05/13/2022 Office Visit General Internal Medicine Ashok Romero [place] [address] [facility] [place] [address] Cathy Dickinson PA-C [address] [facility] [place] [address] Lower abdominal pain*; Frequent urination; Urgency of urination; Bandemia; Loss of weight; Chronic constipation; Type 2 diabetes mellitus with hemoglobin A1c goal of less than 7.5% ([facility]); Stage 3a chronic kidney disease ([facility]); Iron deficiency anemia, unspecified iron deficiency anemia type; Diverticulitis of colon; Type 2 diabetes mellitus with stage 3a chronic kidney disease, without long-term current use of insulin ([facility]); Impingement syndrome of right shoulder; Gastroparesis Allergies Active Allergy Reactions Severity Noted Date Comments Valsartan 07/10/2010 Enalapril 05/21/2006 Escitalopram Oxalate Nausea/vomiting 10/11/2009 Nauseated Iodinated Diagnostic Agents Nausea/vomiting 05/2010 IV Contrast Iodine Hives 12/18/2009 IV Contrast Metoprolol Tartrate 11/18/2006 Made pulse low Mcpherson Oil-Black Currant-Vit E 07/10/2010 Verapamil 03/21/2004 Bupropion Hcl 10/30/2009 Makes pt sick in the stomach documented as of this encounter (statuses as of 05/13/2022) Medications Medication Sig Dispensed Refills Start Date [...] Oral Capsule Delayed Release (PriLOSEC)Indicati ons:Ischemic colitis ([facility]) TAKE 1 CAPSULE BY MOUTH [...] reduced ejection fraction and diastolic dysfunction ([facility]),NICM (nonischemic cardiomyopathy) ([facility]),Presence of Watchman left atrial appendage closure device Take 1 tab in the morning and 1/2 tab in the evening. 135 Tablet 3 1 Active Spiriva Respimat 1.25 MCG/ACT Inhalation Aerosol Solution (Tiotropium [place] Monohydrate) Inhale by mouth. 0 Active Furosemide 40 MG Oral Tablet (Lasix)Indications :Chronic systolic heart failure (HCC),Paroxysmal atrial fibrillation (HCC),Chronic 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),NICM (nonischemic cardiomyopathy) (HCC),Chronic atrial fibrillation (HCC),Hospital discharge follow-up,Presence of Watchman left atrial appendage closure device Take 1.5 Tablets by mouth 2 times a day. 270 Tablet 1 2 Active Lisinopril 2.5 MG Oral Tablet (Prinivil)Indicati [...] be determined,COPD, moderate ([facility]) TAKE 1 PUFF BY MOUTH 4 TIMES A DAY 12 g 2 Active Glimepiride 2 MG Oral Tablet (Amaryl) TAKE 1 TABLET BY MOUTH EVERY DAY WITH BREAKFAST 90 Tablet 1 2 Active Sertraline HCl 25 MG Oral Tablet (Zoloft)Indication s:Major depressive disorder with single episode, in partial remission ([facility]),HECTOR (generalized anxiety disorder) Take by mouth 1 Tablet in the morning. 30 Tablet 5 2 Active OneTouch Verio In Vitro Strip (Glucose Blood) Checks blood sugar 3 times a day. E11.9 DX 100 Strip 5 2 Active Dicyclomine HCl 20 MG Oral Tablet (Bentyl)Indication s:Chronic constipation TAKE 1 TABLET BY MOUTH EVERY DAY 90 Tablet 2 2 Active HYDROcodone-Acetam inophen 5-325 MG Oral TabletIndications: Generalized osteoarthritis Take by mouth 1 Tablet every 6 hours as needed for Pain, Mild. 120 Tablet 0 2 Active Ferrous Sulfate 325 (65 Fe) [...] with Benadryl 3 Tablet 0 2 Active doxycycline 100 MG Tablet Take by mouth 100 mg 2 times a day . RESCUE KIT: Take for Colds. 0 05/13/20 22 Discontinued Zoster Vac Recomb Adjuvanted 50 MCG/0.5ML Intramuscular Suspension Reconstituted (Shingrix) Inject 0.5 mL into a large muscle now and repeat dose in 60 to 180 days 1 Each 1 1 05/13/20 22 Discontinued documented as of this encounter (statuses as of 05/13/2022) Active Problems Problem Noted Date Gastroparesis 05/13/2022 [...] as of this encounter (statuses as of 05/13/2022) Resolved Problems Problem Noted Date Resolved Date [...] Hypoxemia 10/08/2011 10/30/2015 Genetic Sleep Disorder Research Other*[id number] 07/25/2011 05/15/2016 Diverticulitis of colon 07/25/2011 01/06/20 [...] as of this encounter (statuses as of 05/13/2022) Immunizations Name Administration Dates Next Due COVID-19 [...] Sign Reading Time Taken Comments Blood Pressure 112/62 05/13/2022 1:38 PM EDT Pulse 83 05/13/2022 1:38 PM EDT Temperature 36.8 C (98.2 F) 05/13/2022 1:38 PM ED T Respiratory Rate - - Oxygen Saturation 96% 05/13/2022 1:38 PM EDT Inhaled Oxygen Concentration - - Weight 104.7 kg (230 lb 14.4 oz) 05/13/2022 1:38 PM EDT Height 165.1 cm (5' 5") 05/13/2022 1:38 PM EDT Body Mass Index 38.42 05/13/2022 1:38 PM EDT documented in this encounter Progress Notes * Cathy Dickinson PA-C - 05/13/2022 1:33 PM EDT Subjective: Nina Harrington is a 81 year old female. Chief Complaint Patient presents with Acute Pt thinks she has a UTI. Pt is complaining of frequent urination and cannot void bladder completelyand lower abdominal pain. Pt thought abdominal pain was diverticulitis and took Cipro and flagyl for 10 days (finished yesterday)and it did not help symptoms. Pt also stated that she has not had a " true " bowel movement in over a month. Pt states its all mucous and liquid taht comes out Pt also stated that Right arm started hurting about a month ago and has frozen ROM too painful to lift, no injury HPI: 81 y/o female with COPD with respiratory failure, DM II, CKD III, HLD, sleep apnea, heart failure, GERD, IVS, obesity, pAF, pulm HTN, HECTOR seen today with complaint with about one month of LLQ tolower abdominal pain that she thought was a diverticulitis flare so she took some cipro and Flagyl she had at home without improvement. Bowels have been mucousy and thin as well. Still using Colace, but not using Miralax. Has some urinary urgency and frequency, occasional dysuria, but feels like she can not completely void. Will move her bowels during urination, but can not tell when this is occurring. Long hx of recurrent diverticulitis. Not considered to be surgical candidate. She is on Amaryl only for diabetes. Tests blood sugar TID at endocrinology recommendation. She has had 2-3 weeks of right shoulder pain that is worse with elevation of the arm with some radiation to mid humeral area. No trauma. No weakness distally, numbness/tingling. 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 Allergic rhinitis J30.9 Nocturnal hypoxia G47.34 Sleep apnea, obstructive G47.33 HTN, goal below 140/90 I10 Hyperlipidemia with target LDL less than 100 E78.5 Controlled substance agreement signed Z79.899 Type 2 diabetes mellitus with hemoglobin A1c goal of less than 7.5% ([facility]) E11.9 Elevated plasma metanephrines R79.89 Irritable bowel syndrome with constipation K58.1 HECTOR (generalized anxiety disorder) F41.1 COPD, group B, 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 ([facility]) J44.9 Morbid obesity with BMI of 40.0-44.9, adult ([facility]) E66.01, Z68.41 Gastro-esophageal reflux disease without esophagitis K21.9 Paroxysmal atrial fibrillation ([facility]) I48.0 Chronic systolic heart failure ([facility]) I50.22 Pulmonary HTN ([facility]) I27.20 Chronic hypoxemic respiratory failure ([facility]) J96.11 Chronic kidney disease, stage 3a ([facility]) N18.31 Subclinical hyperthyroidism E05.90 History of ESBL E. coli infection Z86.19 Type 2 diabetes mellitus with stage 3a chronic kidney disease, without long- term current use ofinsulin ([facility]) E11.22, N18.31 Gastroparesis K31.84 Current Outpatient Medications Medication Sig Dispense Refill [...] FOR DIAGNOSIS CODE OF E11.9300 Each 1 ondansetron ODT (ZOFRAN) [address] 8 mg on tongue every 8 hours as needed for Nausea. dissolve on tongue. AggredyneSenOrnicept N Voice System Device Use as directed. Tests three times daily/E11.9 CareSens N Glucose Test In Vitro Strip (Glucose Blood) Test as directed. Tests three times daily Aspirin 81 MG Oral Tablet Delayed Release Take 81 mg by mouth daily. Omeprazole 20 MG Oral Capsule Delayed Release (PriLOSEC) TAKE 1 CAPSULE BY MOUTH TWICE A DAY 180 Capsule 3 Klor-Con M20 20 MEQ Oral Tablet Extended Release (Potassium Chloride Annalisa ER) TAKE 1 TABLET BY MOUTH EVERY DAY 90 Tablet 3 Metoprolol Succinate ER 25 MG Oral Tablet Extended Release 24 Hour (toPROL XL) Take 1 tab in the morning and 1/2 tab in the evening. 135 Tablet 3 Spiriva Respimat 1.25 MCG/ACT Inhalation Aerosol Solution (Tiotropium [place] Monohydrate) Inhale by mouth. Furosemide 40 MG Oral Tablet (Lasix) Take 1.5 Tablets by mouth 2 times a day. 270 Tablet 1 Lisinopril 2.5 MG Oral Tablet (Prinivil) Take [...] BY MOUTH EVERY DAY 90 Tablet 1 Ipratropium-Albuterol 20-100 MCG/ACT Inhalation Aerosol Solution (Combivent Respimat) TAKE 1 PUFF BY MOUTH 4 TIMES A DAY 12 g 1 Glimepiride 2 MG Oral Tablet (Amaryl) TAKE 1 TABLET BY MOUTH EVERY DAY WITH BREAKFAST 90 Tablet1 Sertraline HCl 25 MG Oral Tablet (Zoloft) Take by mouth 1 Tablet in the morning. 30 Tablet 5 OneTouch Verio In Vitro Strip (Glucose Blood) Checks blood sugar 3 times a day. E11.9 DX 100 Strip 5 Dicyclomine HCl 20 MG Oral Tablet (Bentyl) TAKE 1 TABLET BY MOUTH EVERY DAY 90 Tablet 2 HYDROcodone-Acetaminophen 5-325 MG Oral Tablet Take by mouth 1 Tablet every 6 hours as needed for Pain, Mild. 120 Tablet 0 Ferrous Sulfate 325 (65 Fe) MG Oral Tablet (Feosol) Take by mouth 1 Tablet in the morning. Zafirlukast 20 MG Oral Tablet (Accolate) TAKE 1 TABLET BY MOUTH EVERY DAY 90 Tablet 3 Promethazine HCl 25 MG Oral Tablet (Phenergan) TAKE 1 TABLET BY MOUTH EVERY 6 HOURS NEEDED FOR NAUSEA 60 Tablet 2 predniSONE 50 MG Oral Tablet (Deltasone) Take 1 tab 13 hrs before scan, take 1 tab 7 hrs beforescan, take 1 tab 1 hr before scan with Benadryl 3 Tablet 0 No current facility-administered medications for this visit. Review of patient's allergies indicates: Allergen Reactions Diovan [Valsartan] Enalapril Escitalopram Oxalate Nausea/vomiting Nauseated Iodinated Diagnostic Agents Nausea/vomiting IV Contrast Iodine Hives IV Contrast Metoprolol Tartrate Made pulse low Mcpherson Oil-Black Currant-Vit E Verapamil Wellbutrin [Bupropion Hcl] Makes pt sick in the stomach All other review of systems reviewed and negative other than mentioned in HPI. Objective: BP 112/62 | Pulse 83 | Temp 36.8 C (98.2 F) (Tympanic) | Ht 1.651 m (5' 5") | Wt 104.7 kg (230 lb 14.4 oz) | SpO2 96% | BMI 38.42 kg/m | BSA 2.19 m Results for orders placed or performed in visit on 04/11/22 BASIC METABOLIC PANEL Result Value Ref Range BUN 16 6 - 20 mg/dL Creatinine 1.0 0.5 - 1.0 mg/dL Estimated Glomerular Filtration Rate 53 (L) >=60 mL/min Sodium 138 135 - 146 mmol/L Potassium 4.5 3.5 - 5.1 mmol/L Chloride 96 (L) 98 - 107 mmol/L CO2 32 22 - 32 mmol/L Anion Gap 10 7 - 15 mmol/L Glucose 160 (H) 70 - 120 mg/dL Calcium 9.4 8.4 - 10.2 mg/dL FERRITIN Result Value Ref Range Ferritin 157 (H) 13 - 150 ng/mL CBC Result Value Ref Range WBC 15.06 (H) 4.00 - 10.80 K/uL RBC 3.93 3.85 - 5.15 M/uL HGB 10.8 (L) 12.0 - 15.3 g/dL HCT 35.9 (L) 36.0 - 45.2 % MCV 91.3 81.5 - 97.5 fL MCH 27.5 27.0 - 34.0 pg MCHC 30.1 32.0 - 36.0 g/dL RDW 15.1 11.5 - 15.5 % MPV 10.2 6.6 - 11.1 fL nRBCs 0 <=0 /100 WBCs PLT 429 (H) 140 - 400 K/uL DIFFERENTIAL, AUTOMATED Result Value Ref Range WBC 15.06 (H) 4.00 - 10.80 K/uL Neutrophils % 63.2 40.0 - 75.0 % Lymphocytes % 17.2 (L) 18.0 - 42.0 % Monocytes % 8.5 1.0 - 11.0 % Eosinophils % 9.6 (H) 0.0 - 6.0 % Basophils % 0.6 0.0 - 2.0 % Immature Granulocytes % 0.9 0.0 - 2.0 % Absolute Neutrophils 9.52 (H) 1.80 - 7.70 K/uL Absolute Lymphocytes 2.59 1.00 - 4.80 K/ul Absolute Monocytes 1.28 (H) 0.00 - 1.10 K/uL Absolute Eosinophils 1.44 (H) 0.00 - 0.70 K/uL Absolute Basophils 0.09 0.00 - 0.20 K/uL Absolute Immature Granulocytes 0.14 0.00 - 0.20 K/uL *Note: Due to a large number of results and/or encounters for the requested time period, some results have not been displayed. A complete set of results can be found in Results Review. CT ABD/PELVIS WO IV CONTRAST - W ORAL CONTRAST Order: [id number] Status: Final result Visible to patient: No (inaccessible in MyChart) Next appt: 06/25/2022 at 01:40 PM in *Primary Care* (Briseyda Barber MD) Dx: Abdominal pain, generalized 0 Result Notes Findings Acuity Comment Non-Specific Finding Significant Abnormal Details Reading Physician Reading Date Result Priority Pablo Rodriguez MD [phone] 06/03/2020 Narrative & Impression EXAM: CT ABDOMEN AND PELVIS WITHOUT CONTRAST HISTORY: abd pain COMPARISON: CT abdomen and pelvis 01/04/2010 TECHNIQUE: CT abdomen and pelvis without contrast was performed. FINDINGS: LOWER CHEST: Mild bibasal atelectasis. LIVER: Unremarkable. GALLBLADDER/BILE DUCTS: Cholecystectomy. No bile duct dilation. PANCREAS: Unremarkable. GI TRACT: Examination of the sigmoid colon shows diverticulosis. There is thickening of the wall ofthe sigmoid colon. Mild inflammatory stranding around the area of the sigmoid colon adjacent to theleft ovary. The left ovary has always been intimately associated adjacent to the sigmoid colon evendating back to the previous CT from 2009. On today's exam air droplets a noted possibly within the left ovary. I am uncertain if these represent diverticula extending near the ovary or if this is secondary to fistulous communication between the left ovary and the adjacent sigmoid with infected leftovary. No bowel obstruction. Appendix not visualized. No right lower quadrant inflammation. SPLEEN: Unremarkable. LYMPH NODES: No lymphadenopathy. ADRENAL GLANDS: Left adrenal 1.7 cm rounded nodule with Hounsfield unit measurement -8 compatible with benign adenoma. Smaller 1 cm right adrenal nodule with Hounsfield unit measurement of 9 compatible with benign adenoma. Both of these appear to be present on previous exam from 2009. KIDNEYS/URETERS: Right kidney exophytic upper pole 1.8 cm lesion and right kidney lower pole cortical 1.2 cm lesion both with Hounsfield unit measurements less than 20 compatible with simple cysts. Left kidney 1.5 cm interpolar area rounded low-density lesion with Hounsfield unit measurement less than 20 compatible with simple cyst. URINARY BLADDER: Unremarkable. REPRODUCTIVE ORGANS: Uterus unremarkable. Right ovarian 2 cm cyst. Left ovary as described above. VASCULATURE: Scattered atherosclerotic calcifications without aortic aneurysm. MISCELLANEOUS: No free fluid or free air. MUSCULOSKELETAL: Unremarkable. IMPRESSION: Findings compatible with mild sigmoid diverticulitis. The left ovary is intimately associated with the inflamed sigmoid colon. Small droplets of air could be within the left ovary versus adjacent to the left ovary in diverticula. Fistulous communication between inflamed sigmoid and adjacent ovariespossible. Infection of the left ovary cannot be excluded. Cyst in the right ovary. Better evaluation with sonography. Physical Exam Constitutional: General: She is not in acute distress. Appearance: Normal appearance. She is normal weight. She is not ill-appearing or toxic-appearing. HENT: Head: Normocephalic and atraumatic. Eyes: Extraocular Movements: Extraocular movements intact. Conjunctiva/sclera: Conjunctivae normal. Pupils: Pupils are equal, round, and reactive to light. Cardiovascular: Rate and Rhythm: Normal rate and regular rhythm. Heart sounds: Normal heart sounds. No murmur heard. No friction rub. No gallop. Pulmonary: Effort: Pulmonary effort is normal. Breath sounds: No wheezing, rhonchi or rales. Comments: Diminished. On Oxygen Abdominal: General: Bowel sounds are normal. There is no distension. Palpations: Abdomen is soft. There is no mass. Tenderness: There is abdominal tenderness. There is no right CVA tenderness, left CVA tenderness, guarding or rebound. Musculoskeletal: Comments: Right shoulder flexion and abduction to 90 degrees before pain. Neurological: Mental Status: She is alert. ASSESSMENT: Lower abdominal pain (Primary) - URINALYSIS, POINT OF CARE (ENTER/EDIT) - COMPREHENSIVE METABOLIC PANEL; Future; Expected date: 05/13/2022 - predniSONE 50 MG Oral Tablet (Deltasone); Take 1 tab 13 hrs before scan, take 1 tab 7 hrs before scan, take 1 tab 1 hr before scan with Benadryl - CT ABD/PELVIS W IV AND W ORAL CONTRAST; Future; Expected date: 05/13/2022 Persistent symptoms despite antibiotic therapy which she typically responds to in the past with recurrent episodes. 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 Not considered surgical candidate. Does have some leukocytosis on recent labs. Will repeat and proceed with CT imaging for further evaluation. She has done well with contrast if given pre-treatment. Given change in bowel habits, weight loss, concern for possible obstructive process. Less suspicion for UTI. She was unable to give clean sample today. Will have her take had and materials to try and collect another sample. She does have gastroparesis most likely complicated by chronic pain medication and anti-motility medications. Possible cause of early satiety and nausea with eating contributing to weight loss. Discussed with fever, chills, worsening pain she should proceed to ER. Hx bowel obstruction, if has recurrent symptoms should proceed to ER as well. Frequent urination - URINALYSIS, POINT OF CARE (ENTER/EDIT) Urgency of urination - URINALYSIS, POINT OF CARE (ENTER/EDIT) Bandemia - CBC WITH WBC DIFFERENTIAL; Future; Expected date: 05/13/2022 Loss of weight - CBC WITH WBC DIFFERENTIAL; Future; Expected date: 05/13/2022 - COMPREHENSIVE METABOLIC PANEL; Future; Expected date: 05/13/2022 - CT ABD/PELVIS W IV AND W ORAL CONTRAST; Future; Expected date: 05/13/2022 Chronic constipation Restart miralax daily Type 2 diabetes mellitus with hemoglobin A1c goal of less than 7.5% (HCC) Stage 3a chronic kidney disease (HCC) - COMPREHENSIVE METABOLIC PANEL; Future; Expected date: 05/13/2022 Iron deficiency anemia, unspecified iron deficiency anemia type - IRON SCREEN, INCLUDING TIBC; Future; Expected date: 05/13/2022 - FERRITIN; Future; Expected date: 05/13/2022 Diverticulitis of colon - predniSONE 50 MG Oral Tablet (Deltasone); Take 1 tab 13 hrs before scan, take 1 tab 7 hrs before scan, take 1 tab 1 hr before scan with Benadryl - CT ABD/PELVIS W IV AND W ORAL CONTRAST; Future; Expected date: 05/13/2022 Type 2 diabetes mellitus with stage 3a chronic kidney disease, without long-term current use of insulin (HCC) DM II controlled and followed by endocrinology. Reports that she is testing TID at endocrinology direction. On Amaryl therapy. Believe she has impingement syndrome of right shoulder. Discussed possible shoulder injection to see if symptoms improve. She is agreeable. This is to be scheduled. Follow-up: Return if symptoms worsen or fail to improve. | Check-out note: Schedule shoulder injection 2-3 weeks with me I spent a total of 40-54 minutes (exact time 40 mins) on the date of service in preparation, delivery, and documentation of the care provided to Nina Harrington excluding any time spent in the performance of separately billed services. Cathy Dickinson PA-C * PARIS Arita - 05/13/2022 1:27 PM EDT Chief Complaint Patient presents with Acute Pt thinks she has a UTI. Pt is complaining of frequent urination and cannot void bladder completelyand lower abdominal pain. Pt thought abdominal pain was diverticulitis and took Cipro and flagyl for 10 days (finished yesterday)and it did not help symptoms. Pt also stated that she has not had a " true " bowel movement in over a month. Pt states its all mucous and liquid taht comes out Pt also stated that Right arm started hurting about a month ago and has frozen ROM too painful to lift, no injury documented in this encounter Miscellaneous Notes * Addendum Note - Cathy Dickinson PA-C - 05/13/2022 6:52 PM EDT Addended by: CATHY DICKINSON on: 05/13/2022 06:52 PM Modules accepted: Orders documented in this encounter Plan of Treatment Upcoming Encounters Date Type Specialty Care Team Description 05/28/2022 Imaging Radiology 06/03/2022 Office Visit Internal Medicine Cathy Dickinson PA-C [address] [place] [address] 06/25/2022 Office Visit Internal Medicine Briseyda Barber MD [address] [place] [address] 06/25/2022 Office Visit Cardiology Hammad Lopez, DO [address] [facility] [place] [address] Pending Results Name Type Priority Associated Diagnoses Date /Time IRON SCREEN, INCLUDING TIBC Lab Routine Iron deficiency anemia, unspecified iron deficiency anemia type 05/13/2022 2:23 PM EDT FERRITIN Lab Routine Iron deficiency anemia, unspecified iron deficiency anemia type 05/13/2022 2:23 PM EDT Scheduled Orders Name Type Priority Associated Diagnoses Orde r Schedule IRON SCREEN, INCLUDING TIBC Lab Routine Iron deficiency anemia, unspecified iron deficiency anemia type Expected: 05/13/2022 (Approximate), Expires: 05/13/2023 FERRITIN Lab Routine Iron deficiency anemia, unspecified iron deficiency anemia type Expected: 05/13/2022 (Approximate), Expires: 05/13/2023 CT ABD/PELVIS W IV AND W ORAL CONTRAST Medical Imaging Routine Lower abdominal pain Diverticulitis of colon Loss of weight Expected: 05/13/2022 (Approximate), Expires: 06/13/2023 URINALYSIS, REFLEX TO MICROSCOPIC Lab Routine Frequent urination Urgency of urination Expected: 05/13/2022 (Approximate), Expires: 05/13/2023 CULTURE, URINE, QUANTITATIVE Lab Routine Frequent urination Urgency of urination Expected: 05/13/2022 (Approximate), Expires: 05/13/2023 Health Maintenance Due Date Last Done Comments [...] 11/19/2021, 0 12/21/2020, 10/19/2019, Additional history exists O2 ASSESSMENT COMPLETED IN PAST YEAR FOR COPD 12/18/2022 05/13/2022 CKD PHOS USE SMARTSET 94838 02/19/202302/10, 03/09/2021, 03/22/2019 DIABETES-URINE ALBUMIN/CREATININE EVERY 12 MONTHS 02/19/2023 02/19/2022, 07/09/2019, 07/27/2018, Additional history exists DIABETES-EYE EXAM 03/08/2023 03/08/2022, , 08/07/2020, Additional history exists CKD HGB USE SMARTSET 25182 05/13/202305/13, 05/13/2022, 04/11/2022, Additional history exists DXA Scan 08/08/2025 08/08/2020, [...] encounter Results * (ABNORMAL) COMPREHENSIVE METABOLIC PANEL (05/13/2022 2:23 PM EDT) BUN 19 6 - 20 mg/dL [place] [address] Creatinine 1.1(H) 0.5 - 1.0 mg/dL [place] [address] Estimated Glomerular Filtration Rate 48(L)Comment:eGFR is calculated based on the CKD-EPI 2020 equation >=60 mL/min [place] [address] Sodium 136 135 - 146 mmol/L [place] [address] Potassium 4.9 3.5 - 5.1 mmol/L [place] [address] Chloride 99 98 - 107 mmol/L [place] [address] CO2 28 22 - 32 mmol/L [place] [address] Anion Gap 9 7 - 15 mmol/L [facility] [place] [address] Glucose 154(H) 70 - 120 mg/dL [place] [address] Albumin 3.5(L) 3.8 - 5.0 g/dL [place] [address] AST 12 10 - 35 U/L [place] [address] Alkaline Phosphatase 107 35 - 130 U/L [place] [address] Bilirubin, Total 0.3 <=1.2 mg/dL [place] [address] Calcium 9.3 8.4 - 10.2 mg/dL [place] [address] Protein 6.5 6.0 - 8.3 g/dL [place] [address] ALT 6(L) 10 - 35 U/L [place] [address] Specimen Blood - Venous blood specime n (specimen) [place] [address] [place] [address] documented in this encounter Visit Diagnoses Diagnosis Lower abdominal pain- Primary Abdominal pain, other specified site Frequent urination Urinary frequency Urgency of urination Bandemia Loss of weight Chronic constipation Unspecified constipation Type 2 diabetes mellitus with hemoglobin A1c goal of less than 7.5% (HCC) Stage 3a chronic kidney disease (HCC) Iron deficiency anemia, unspecified iron deficiency anemia type Diverticulitis of colon Diverticulitis of colon (without mention of hemorrhage) Type 2 diabetes mellitus with stage 3a chronic kidney disease, without long-term current use of insulin (HCC) Impingement syndrome of right shoulder Other affections of shoulder region, not elsewhere classified Gastroparesis documented in this encounter Advance Directives Documents on File Type Date Recorded Patient Magazine Supervisor Expl 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 Directive Advanced Directive Advanced Directive Care Teams Can Machine Operator Relationship Specialty Start Date End Date Marcela Pinto MD [address] [place] [address] PCP - General Internal Medicine 08/04/14 documented as of this encounter
--- OUTSIDE RECORDS SUMMARY | 2023-06-18 02:52 | External Medical Summary | Summary of Care ---
Author Name Unknown Organization [facility] [address] Care Team Providers Care Manager Drug Safety Name Role Phone Mracela Pinto MD Primary Care Provider + Reason for Visit * Reason Comments Outpatient Testing Encounter Details Date Type Department Care Team Description 05/13/2022 Laboratory Laboratory [address] [place] [address] [place] [address] [facility] [address] [place] [address] Loss of weight; Bandemia; Iron deficiency anemia, unspecified iron deficiency anemia type; Lower abdominal pain; Stage 3a chronic kidney disease (HCC) Allergies Active Allergy Reactions Severity Noted Date Comments Valsartan 07/10/2010 Enalapril 05/21/2006 Escitalopram Oxalate Nausea/vomiting 10/11/2009 Nauseated Iodinated Diagnostic Agents Nausea/vomiting 05/2010 IV Contrast Iodine Hives 12/18/2009 IV Contrast Metoprolol Tartrate 11/18/2006 Made pulse low [place] Oil-Black Currant-Vit E 07/10/2010 Verapamil 03/21/2004 Bupropion [...] Respimat 1.25 MCG/ACT Inhalation Aerosol Solution (Tiotropium [place] Monohydrate) Inhale by mouth. 0 Active Furosemide [...] Hypoxemia 10/08/2011 10/30/2015 Genetic Sleep Disorder Research Other*[id number] 07/25/2011 05/15/2016 Diverticulitis of colon 07/25/2011 01/06/20 [...] mRNA, LNP-s, No Pre serve, 2-Dose Series ([employer]) 08/21/2021,12/22/2020,2020 COVID-19, LNP-s, No Preserve , Tyler-sucrose, [...] Visit Internal Medicine David Duke PA-C [address] [facility] [place] [address] 06/25/2022 Office Visit Internal Medicine Briseyda Barber MD [address] [facility] [place] [address] 06/25/2022 Office Visit Cardiology Hammad Lopez, DO [address] [facility] [place] [address] Pending Results Name Type Priority Associated Diagnoses Date /Time IRON SCREEN, INCLUDING TIBC Lab Routine Iron deficiency anemia, unspecified iron deficiency anemia type 05/13/2022 2:23 PM EDT FERRITIN Lab Routine Iron deficiency anemia, unspecified iron deficiency anemia type 05/13/2022 2:23 PM EDT COMPREHENSIVE METABOLIC PANEL Lab Routine Lower abdominal pain Stage 3a chronic kidney disease (HCC) Loss of weight 05/13/2022 2:23 PM EDT Health Maintenance Due Date Last [...] Additional history exists GFR - Renal Function 10/11/2022 04/11/2022, 02/19/2022, 11/19/2021, Additional history exists DIABETES-FOOT EXAM 11/19/2022 11/19/2021, 0 12/21/2020, 10/19/2019, Additional history exists O2 ASSESSMENT COMPLETED IN PAST YEAR FOR COPD 12/18/2022 05/13/2022 CKD PHOS USE SMARTSET 57739 02/19/2023 05, 03/09/2021, 03/22/2019 DIABETES-URINE ALBUMIN/CREATININE EVERY 12 MONTHS 02/19/2023 02/19/2022, 07/09/2019, 07/27/2018, Additional history exists DIABETES-EYE EXAM 03/08/2023 03/08/2022, , 08/07/2020, Additional history exists CKD HGB USE SMARTSET 91461 04/11/202305/13, 05/13/2022, 04/11/2022, Additional history exists DXA Scan [...] Date/Time Associated Diagnosis Comments DIFFERENTIAL, AUTOMATED Routine 05/13/2022 2:23 PM EDT Loss of weight Bandemia CBC WITH WBC DIFFERENTIAL Routine 05/13/2022 2:23 PM EDT Loss of weight Bandemia CBC Routine 05/13/2022 2:23 PM EDT Loss of weight Bandemia documented in this encounter Results * (ABNORMAL) DIFFERENTIAL, AUTOMATED (05/13/2022 2:23 PM EDT) WBC 15.13(H) 4.00 - 10.80 K/uL [facility]AT[facility] [place] Neutrophils % 68.8 40.0 - 75.0 % [facility]ATORY [facility] 56-02 Lymphocytes % 15.0(L) 18.0 - 42.0 % [facility]ATORY [facility] 56-02 Monocytes % 14.1(H) 1.0 - 11.0 % LABORATORY STAT E [facility] 56-02 Eosinophils % 1.9 0.0 - 6.0 % LABORATORY [facility] 56-02 Basophils % 0.2 0.0 - 2.0 % LABORATORY STAT E [facility] 56-02 Absolute Neutrophils 10.40(H) 1.80 - 7.70 K/uL [facility] [place] 56-02 Absolute Lymphocytes 2.27 1.00 - 4.80 K/ul [facility] [place] 56-02 Absolute Monocytes 2.14(H) 0.00 - 1.10 K/uL [facility] [place] 56-02 Absolute Eosinophils 0.29 0.00 - 0.70 K/uL [facility] [place] 56-02 Absolute Basophils 0.03 0.00 - 0.20 K/uL [facility] [place] 56-02 Specimen Blood - Venous blood specime n (specimen) Performing Organization Address [facility] de Phone Number [facility] [address] [place] [address] * (ABNORMAL) CBC (05/13/2022 2:23 PM EDT) WBC 15.13(H) 4.00 - 10.80 K/uL [place] [address] RBC 3.69 3.85 - 5.15 M/uL [place] [address] HGB 10.1(L) 12.0 - 15.3 g/dL [address] HCT 32.9(L) 36.0 - 45.2 % LABORATORY [address] MCV 89.2 81.5 - 97.5 fL LABORATORY [address] MCH 27.4 27.0 - 34.[address] [facility] MCHC 30.7 32.0 - 36.0 g/dL [place] [address] RDW 15.0 11.5 - 15.5 % LABORATORY [address] PLT 480(H) 140 - 400 K/uL LABORATORY [address] MPV 9.4 6.6 - 11.1 fL LABORATORY [facility] - Specimen Blood - Venous blood specime n (specimen) Performing Organization Address [facility] de Phone Number [facility] [address] [place] [address] documented in this encounter Visit Diagnoses Diagnosis Loss of weight Bandemia Iron deficiency anemia, unspecified iron deficiency anemia type Lower abdominal pain Abdominal pain, other specified site Stage 3a chronic kidney disease (HCC) documented in this encounter Advance Directives Documents on File Type Date Recorded Patient Senior Developer Expl anation Advanced 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 Directive Advanced Directive Advanced Directive Care Teams Manager Drug Safety Relationship Specialty Start Date End Date Marcela Pinto MD [address] [place] [address] PCP - General Internal Medicine 08/04/14 documented as of this encounter
--- OUTSIDE RECORDS SUMMARY | 2023-06-18 02:52 | External Medical Summary | Summary of Care ---
Author Name Unknown Organization [place] [address] Care Team Providers Care Degreasing Solution Mixer Name Role Phone Marcela Pinto MD Primary Care Provider + Encounter Details Date Type Department Care Team Description 04/17/2022 Result Scan Unspecified Department <No scans attached> Allergies Active Allergy Reactions Severity Noted Date Comments Valsartan 07/10/2010 Enalapril 05/21/2006 Escitalopram Oxalate Nausea/vomiting 10/11/2009 Nauseated Iodinated Diagnostic Agents Nausea/vomiting 05/2010 IV Contrast Iodine Hives 12/18/2009 IV Contrast Metoprolol Tartrate 11/18/2006 Made pulse low [place] Oil-Black Currant-Vit E 07/10/2010 Verapamil 03/21/2004 Bupropion [...] to be determined,COPD, moderate ([facility]) USE ONE NEBULIZER TREATMENT TWICE A DAY DIRECTED FOR WORSENING ASTHMA. J45.909, J44.9 225 mL 1 9 Active Albuterol Sulfate (VENTOLIN HFA) 108 (90 Base) MCG/ACT AERS Inhale 2 Puffs by mouth 2 times a day. 0 0 Active Lancets MISCIndications:Ty pe 2 diabetes mellitus with hemoglobin A1c goal of less than 7.0% ([facility]) Use as directed. USE TO TEST [...] Respimat 1.25 MCG/ACT Inhalation Aerosol Solution (Tiotropium [place] Monohydrate) Inhale by mouth. 0 Active Furosemide [...] ns:Asthma with severity to be determined,COPD, moderate ([facility]) TAKE 1 PUFF BY MOUTH 4 [...] Pain, Mild. 120 Tablet 0 2 Active doxycycline 100 MG [...] of 05/13/2022) Active Problems Problem Noted Date Type 2 diabetes mellitus wit h [...] Hypoxemia 10/08/2011 10/30/2015 Genetic Sleep Disorder Research Other*[id number] 07/25/2011 05/15/2016 Diverticulitis of colon 07/25/2011 01/06/20 [...] mRNA, LNP-s, No Pre serve, 2-Dose Series ([email or web address]) 08/21/2021,12/22/2020,2020 COVID-19, LNP-s, No Preserve , Tyler-sucrose, [...] Specialty Care Team Description 06/25/2022 Office Visit Internal Medicine Briseyda Barber MD 200 [facility] [place] [address] 06/25/2022 Office Visit Cardiology [facility]ammad Lopez DO [facility] [place] [address] Health Maintenance Due Date Last Done Comments [...] COMPLETED IN PAST YEAR FOR COPD 12/18/2022 12/18/2021 CKD PHOS USE SMARTSET 76035 02/19/2023 05, 03/09/2021, 03/22/2019 DIABETES-URINE ALBUMIN/CREATININE EVERY 12 MONTHS 02/19/2023 02/19/2022, 07/09/2019, 07/27/2018, Additional history exists DIABETES-EYE EXAM 03/08/2023 03/08/2022, , 08/07/2020, Additional history exists CKD HGB USE SMARTSET 18182 04/11/202304/11, 04/11/2022, 02/19/2022, Additional history exists DXA Scan 08/08/2025 [...] Date/Time Associated Diagnosis Comments RADIOLOGY SCANNED RESULT 04/17/2022 documented in this encounter Results * RADIOLOGY SCANNED RESULT (04/17/2022) Specimen Narrative documented in this encounter Advance Directives Documents on File Type Date Recorded 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
--- OUTSIDE RECORDS SUMMARY | 2023-06-18 02:52 | External Medical Summary | Summary of Care ---
Author Name Unknown Organization [place] [address] Care Team Providers Care Saw Repairer Name Role Phone Alex Pinto MD Primary Care Provider + Reason for Visit * Reason Comments eRx-Medication Refill Encounter Details Date Type Department Care Team Description 05/01/2022 Refill General Internal Medicine [facility] [address] [facility] [place] [address] Alex Pinto MD [address] [place] [address] Asthma with severity to be determined; GENERAL OSTEOARTHROSIS Allergies Active Allergy Reactions Severity Noted Date Comments Valsartan 07/10/2010 Enalapril 05/21/2006 Escitalopram Oxalate Nausea/vomiting 10/11/2009 Nauseated Iodinated Diagnostic Agents Nausea/vomiting 05/2010 IV Contrast Iodine Hives 12/18/2009 IV Contrast Metoprolol Tartrate 11/18/2006 Made pulse low [place] Oil-Black Currant-Vit E 07/10/2010 Verapamil 03/21/2004 Bupropion Hcl 10/30/2009 Makes pt sick in the stomach documented as of this encounter (statuses as of 05/03/2022) Medications Medication Sig Dispensed Refills Start Date [...] for Nausea. dissolve on tongue. 0 Active doxycycline 100 MG Tablet Take by mouth 100 mg 2 times a day . RESCUE KIT: Take for Colds. 0 Active CareSens N Voice System Device Use as directed. Tests three times daily/E11.9 0 Active CareSens N Glucose Test In Vitro Strip (Glucose Blood) Test as directed. Tests three times daily 0 Active Aspirin 81 MG Oral Tablet Delayed Release Take 81 mg by mouth daily. 0 1 Active Zoster Vac Recomb Adjuvanted 50 MCG/0.5ML Intramuscular Suspension Reconstituted (Shingrix) Inject 0.5 mL into a large muscle now and repeat dose in 60 to 180 days 1 Each 1 1 Active Additional Information Patient not taking. Reported on 02/19/2022 Omeprazole 20 MG Oral Capsule Delayed Release [...] Respimat 1.25 MCG/ACT Inhalation Aerosol Solution (Tiotropium [place] Monohydrate) Inhale by mouth. 0 Active Furosemide [...] FOR NAUSEA 60 Tablet 2 2 Active Zafirlukast 20 MG Oral Tablet (Accolate)Indicati ons:Asthma with severity to be determined TAKE 1 TABLET BY MOUTH EVERY DAY 90 Tab 3 1 05/02/20 22 Discontinued Promethazine HCl 25 MG Oral Tablet (Phenergan)Indicat ions:Generalized osteoarthritis TAKE 1 TABLET BY MOUTH EVERY 6 HOURS NEEDED FOR NAUSEA 60 Tablet 2 2 05/03/20 22 Discontinued documented as of this encounter (statuses as of 05/03/2022) Active Problems Problem Noted Date Type 2 [...] as of this encounter (statuses as of 05/03/2022) Resolved Problems Problem Noted Date Resolved Date [...] Hypoxemia 10/08/2011 10/30/2015 Genetic Sleep Disorder Research Other*[id number] 07/25/2011 05/15/2016 Diverticulitis of colon 07/25/2011 01/06/20 [...] as of this encounter (statuses as of 05/03/2022) Immunizations Name Administration Dates Next Due COVID-19 [...] Telephone Encounter - Alex Pinto MD - 05/03/2022 9:57 AM EDT Signed Prescriptions: Disp Refills Zafirlukast 20 MG Oral Tablet (Accolate) 90 Tab*3 Sig: TAKE 1 TABLET BY MOUTH EVERY DAY Authorizing Provider: ALEX PINTO Ordering User: ADRIEL DARBY Promethazine HCl 25 MG Oral Tablet (Phener*60 Tab*2 Sig: TAKE 1 TABLET BY MOUTH EVERY 6 HOURS NEEDED FOR NAUSEA Authorizing Provider: ALEX PINTO < BR> * Telephone Encounter - Adriel Darby [facility] - 05/02/2022 2:27 PM EDT Pending Prescriptions: Disp Refills Promethazine HCl 25 MG Oral Tablet (Phene*60 Tab*2 Sig: TAKE 1 TABLET BY MOUTH EVERY 6 HOURS NEEDED FOR NAUSEA Signed Prescriptions: Disp Refills Zafirlukast 20 MG Oral Tablet (Accolate) 90 Tab*3 Sig: TAKE 1 TABLET BY MOUTH EVERY DAY Authorizing Provider: ALEX PINTO Ordering User: ADRIEL DARBY * Telephone Encounter - Adriel Darby [facility] - 05/02/2022 2:27 PM EDT [facility] is currently not authorized to approve refills for the pended medication(s) per refillprotocol. Please approve if appropriate. Thank you, Adriel Darby, PharmD Clinical Pharmacist [facility] [phone] 05/02/2022, 2:27 PM Pending Prescriptions: Disp Refills Promethazine HCl 25 MG Oral Tablet (Phene*60 Tab*2 Sig: TAKE 1 TABLET BY MOUTH EVERY 6 HOURS NEEDED FOR NAUSEA Signed Prescriptions: Disp Refills Zafirlukast 20 MG Oral Tablet (Accolate) 90 Tab*3 Sig: TAKE 1 TABLET BY MOUTH EVERY DAY Authorizing Provider: ALEX PINTO Ordering User: ADRIEL DARBY Last Visit: 02/19/2022 (in office), 08/08/2020 (telemedicine) Next Visit: 05/13/2022 If no future appointments scheduled, and last appointment is greater than a year ago, please schedule patient for a follow-up appointment Last date the medication was ordered: 03/01/22 Pharmacy: [id number] [address] [facility] Is this request for a controlled substance? [...] found in Results Review. Patient Phone Numbers Couple [phone] Labs: Lab Results Component Value Date/Time CREAT 1.0 04/11/2022 11:45 AM CREAT 1.08 (A) 06/12/2021 12:00 AM CREAT 1.0 05/27/2020 04:51 PM POTASSIUM 4.5 04/11/2022 11:45 AM POTASSIUM 4.1 06/12/2021 12:00 AM POTASSIUM 4.0 05/27/2020 04:51 PM TSH 1.13 02/19/2022 04:04 PM TSH 0.965 12/05/2020 12:00 AM TSH 0.42 07/27/2018 11:32 AM LDLCALC 76 08/07/2021 09:05 AM LDLCALC 75.20 12/05/2020 12:00 AM LDLCALC 95 07/27/2018 11:32 AM LDLDIRECT 85 12/05/2020 12:00 AM LDLDIRECT 97 07/27/2018 11:32 AM ALT 11 02/19/2022 04:04 PM ALT 15 05/27/2020 04:51 PM HGBA1C 6.8 (H) 02/19/2022 04:04 PM HGBA1C 6.5 (A) 12/05/2020 12:00 AM HGBA1C 6.6 (H) 08/26/2019 02:55 PM documented in this encounter Plan of Treatment Upcoming Encounters Date Type Specialty Care Team Description 05/13/2022 Office Visit Internal Medicine David Duke PA-C [address] [facility] [place] [address] 06/25/2022 Office Visit Internal Medicine Briseyda Barber MD [address] [facility] [place] [address] 06/25/2022 Office Visit Cardiology Hammad Lopez, [address] [facility] [place] [address] Health Maintenance Due Date Last Done Comments [...] COPD 12/18/2022 12/18/2021 CKD PHOS USE SMARTSET 45023 02/19/202302/10, 03/09/2021, 03/22/2019 DIABETES-URINE ALBUMIN/CREATININE EVERY 12 MONTHS 02/19/2023 02/19/2022, 07/09/2019, 07/27/2018, Additional history exists DIABETES-EYE EXAM 03/08/2023 03/08/2022, , 08/07/2020, Additional history exists CKD HGB USE SMARTSET 73502 04/11/202304/11, 04/11/2022, 02/19/2022, Additional history exists DXA [...] Diagnosis Asthma with severity to be determined GENERAL OSTEOARTHROSIS Generalized osteoarthrosis, unspecified site documented in this encounter Advance Directives Documents on File Type Date Recorded 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
--- OUTSIDE RECORDS SUMMARY | 2023-06-18 02:52 | External Medical Summary | Summary of Care ---
Author Name Unknown Organization [facility] [address] Care Team Providers Care Pattern Chart Writer Name Role Phone Marcela Pinto MD Primary Care Provider + Reason for Referral * Precert (Within 10 days (routine)) - Pending Review Specialty Diagnoses / Procedures Referred By Contnesha t Referred To Contact Radiology Diagnoses Lower abdominal pain Diverticulitis of colon Loss of weight Procedures CT ABD/PELVIS W IV AND W ORAL CONTRAST David Duke PA-C [address] [facility] [place] [address] Referral ID Status Reason Start Date Expiration Date V isits Requested Visits Authorized [id number] Pending Review 05/13/2022 999 999 Reason for [...] Office Visit General Internal Medicine Ashok Romero [place] 200 [facility] [place] [address] David Duke PA-C [address] [facility] [place] [address] Lower abdominal pain*; Frequent urination; Urgency of urination; Bandemia; Loss of weight; Chronic constipation; Type 2 diabetes mellitus with hemoglobin A1c goal of less than 7.5% ([facility]); Stage 3a chronic kidney disease ([facility]); Iron deficiency anemia, unspecified iron deficiency anemia type; Diverticulitis of colon; Type 2 diabetes mellitus with stage 3a chronic kidney disease, without long-term current use of insulin ([facility]); Impingement syndrome of right shoulder; Gastroparesis Allergies Active Allergy Reactions Severity Noted Date Comments Valsartan 07/10/2010 Enalapril 05/21/2006 Escitalopram Oxalate Nausea/vomiting 10/11/2009 Nauseated Iodinated Diagnostic Agents Nausea/vomiting 05/2010 IV Contrast Iodine Hives 12/18/2009 IV Contrast Metoprolol Tartrate 11/18/2006 Made pulse low [place] Oil-Black Currant-Vit E 07/10/2010 Verapamil 03/21/2004 Bupropion [...] to be determined,COPD, moderate ([facility]) USE ONE NEBULIZER TREATMENT TWICE A DAY DIRECTED FOR WORSENING ASTHMA. J45.909, J44.9 225 mL 1 9 Active Albuterol Sulfate (VENTOLIN HFA) 108 (90 Base) MCG/ACT AERS Inhale 2 Puffs by mouth 2 times a day. 0 0 Active Lancets MISCIndications:Ty pe 2 diabetes mellitus with hemoglobin A1c goal of less than 7.0% ([facility]) Use as directed. USE TO TEST BLOOD [...] Oral Capsule Delayed Release (PriLOSEC)Indicati ons:Ischemic colitis ([facility]) TAKE 1 CAPSULE BY MOUTH TWICE A [...] fraction and diastolic dysfunction ([facility]),NICM (nonischemic cardiomyopathy) ([facility]),Presence of Watchman left atrial appendage closure device Take 1 tab in the morning and 1/2 tab in the evening. 135 Tablet 3 1 Active Spiriva Respimat 1.25 MCG/ACT Inhalation Aerosol Solution (Tiotropium [place] Monohydrate) Inhale by mouth. 0 Active Furosemide [...] ns:Asthma with severity to be determined,COPD, moderate ([facility]) TAKE 1 PUFF BY MOUTH 4 TIMES A DAY 12 g 2 Active Glimepiride 2 MG Oral Tablet (Amaryl) TAKE 1 TABLET BY MOUTH EVERY DAY WITH BREAKFAST 90 Tablet 1 2 Active Sertraline HCl 25 MG Oral Tablet (Zoloft)Indication s:Major depressive disorder with single episode, in partial remission ([facility]),HECTOR (generalized anxiety disorder) Take by mouth 1 [...] Hypoxemia 10/08/2011 10/30/2015 Genetic Sleep Disorder Research Other*[id number] 07/25/2011 05/15/2016 Diverticulitis of colon 07/25/2011 01/06/20 [...] documented in this encounter Progress Notes * David Duke PA-C - 05/13/2022 1:33 PM EDT Subjective: [facility]) E11.22, N18.31 Gastroparesis K31.84 Current Outpatient Medications [...] as needed for Nausea. dissolve on tongue. [email or web address] N Voice System Device Use as directed. [...] Respimat 1.25 MCG/ACT Inhalation Aerosol Solution (Tiotropium [place] Monohydrate) Inhale by mouth. Furosemide 40 MG [...] IV Contrast Metoprolol Tartrate Made pulse low [place] Oil-Black Currant-Vit E Verapamil Wellbutrin [Bupropion Hcl] [...] IV CONTRAST - W ORAL CONTRAST Order: [id number] Status: Final result Visible to patient: No (inaccessible in MyChart) Next appt: 06/25/2022 at 01:40 PM in *Primary Care* (Briseyda Barber MD) Dx: Abdominal pain, generalized 0 Result Notes Findings Acuity Comment Non-Specific Finding Significant Abnormal Details Reading Physician Reading Date Result Priority Pablo Rodriguez MD [phone] 06/03/2020 Narrative & Impression EXAM: CT ABDOMEN [...] in the performance of separately billed services. David Duke PA-C * PARIS Arita - 05/13/2022 1:27 [...] lift, no injury documented in this encounter Plan of Treatment Upcoming Encounters Date Type Specialty Care Team Description 05/28/2022 Imaging Radiology 06/03/2022 Office Visit Internal Medicine David Duke PA-C [address] [facility] [place] [address] 06/25/2022 Office Visit Internal Medicine Briseyda Barber MD [address] [facility] [place] [address] 06/25/2022 Office Visit Cardiology Hammad Lopez, DO [address] [place] [address] Pending Results Name Type Priority Associated Diagnoses Date /Time IRON SCREEN, INCLUDING TIBC Lab Routine Iron deficiency anemia, unspecified iron deficiency anemia type 05/13/2022 2:23 PM EDT FERRITIN Lab Routine Iron deficiency anemia, unspecified iron deficiency anemia type 05/13/2022 2:23 PM EDT COMPREHENSIVE METABOLIC PANEL Lab Routine Lower abdominal pain Stage 3a chronic kidney disease (HCC) Loss of weight 05/13/2022 2:23 PM EDT Scheduled Orders Name Type Priority Associated Diagnoses Orde r Schedule URINALYSIS, POINT OF CARE (ENTER/EDIT) Point of Care Testing Routine Frequent urination Urgency of urination Lower abdominal pain Ordered: 05/13/2022 IRON SCREEN, INCLUDING TIBC Lab Routine Iron deficiency anemia, unspecified iron deficiency anemia type Expected: 05/13/2022 (Approximate), Expires: 05/13/2023 FERRITIN Lab Routine Iron deficiency anemia, unspecified iron deficiency anemia type Expected: 05/13/2022 (Approximate), Expires: 05/13/2023 COMPREHENSIVE METABOLIC PANEL Lab Routine Lower abdominal pain Stage 3a chronic kidney disease (HCC) Loss of weight Expected: 05/13/2022 (Approximate), Expires: 05/13/2023 CT ABD/PELVIS W IV AND W ORAL CONTRAST Medical Imaging Routine Lower abdominal pain Diverticulitis of colon Loss of weight Expected: 05/13/2022 (Approximate), Expires: 06/13/2023 Health Maintenance Due Date Last Done Comments [...] COPD 12/18/2022 05/13/2022 CKD PHOS USE SMARTSET 08152 02/19/202302/10, 03/09/2021, 03/22/2019 DIABETES-URINE ALBUMIN/CREATININE EVERY 12 MONTHS 02/19/2023 02/19/2022, 07/09/2019, 07/27/2018, Additional history exists DIABETES-EYE EXAM 03/08/2023 03/08/2022, , 08/07/2020, Additional history exists CKD HGB USE SMARTSET 45332 04/11/202305/13, 05/13/2022, 04/11/2022, Additional history exists DXA [...] as of this encounter Visit Diagnoses Diagnosis Lower abdominal [...] Documents on File Type Date Recorded 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
--- OUTSIDE RECORDS SUMMARY | 2023-06-18 02:52 | External Medical Summary | Summary of Care ---
Author Name Unknown Organization [place] [address] Care Team Providers Care Senior Electrical Controls Engineer Name Role Phone Marcela Pinto MD Primary Care Provider + Reason for Visit * Reason Onset Date Comments Diabetes Follow-Up 05/13/2022 Encounter Details Date Type Department Care Team Description 05/13/2022 Telephone General Internal Medicine [facility] [address] [place] [address] David Duke PA-C 200 [facility] [place] [address] Diabetes Follow-Up Allergies Active Allergy Reactions Severity Noted Date Comments Valsartan 07/10/2010 Enalapril 05/21/2006 Escitalopram Oxalate Nausea/vomiting 10/11/2009 Nauseated Iodinated Diagnostic Agents Nausea/vomiting 05/2010 IV Contrast Iodine Hives 12/18/2009 IV Contrast Metoprolol Tartrate 11/18/2006 Made pulse low [place] Oil-Black Currant-Vit E 07/10/2010 Verapamil 03/21/2004 Bupropion [...] Respimat 1.25 MCG/ACT Inhalation Aerosol Solution (Tiotropium [place] Monohydrate) Inhale by mouth. 0 Active Furosemide [...] Hypoxemia 10/08/2011 10/30/2015 Genetic Sleep Disorder Research Other*[id number] 07/25/2011 05/15/2016 Diverticulitis of colon 07/25/2011 01/06/20 [...] mRNA, LNP-s, No Pre serve, 2-Dose Series ([employer]) 08/21/2021,12/22/2020,2020 COVID-19, LNP-s, No Preserve , Tyler-sucrose, [...] encounter Miscellaneous Notes * Telephone Encounter - PARIS Arita - 05/13/2022 4:16 PM EDT Asked to fax note to follow up on why Pt is testing 3 times daily for diabetes. todays office visitnote was faxed to [phone] and received fax confirmation PARIS Arita documented in this encounter Plan of Treatment Upcoming Encounters Date Type Specialty Care Team Description 05/28/2022 Imaging Radiology 06/03/2022 Office Visit Internal Medicine David Duke PA-C [address] [place] [address] 06/25/2022 Office Visit Internal Medicine Briseyda Barber MD [address] [place] [address] 06/25/2022 Office Visit Cardiology Hammad Lopez DO [address] [place] [address] Health Maintenance Due Date Last Done Comments [...] COPD 12/18/2022 05/13/2022 CKD PHOS USE SMARTSET 88851 02/19/202302/10, 03/09/2021, 03/22/2019 DIABETES-URINE ALBUMIN/CREATININE EVERY 12 MONTHS 02/19/2023 02/19/2022, 07/09/2019, 07/27/2018, Additional history exists DIABETES-EYE EXAM 03/08/2023 03/08/2022, , 08/07/2020, Additional history exists CKD HGB USE SMARTSET 21667 05/13/202305/13, 05/13/2022, 04/11/2022, Additional history exists DXA [...] Documents on File Type Date Recorded Patient Circle Beveler Expl anation Advanced 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 Directive Advanced Directive Advanced Directive Care Teams Senior Electrical Controls Engineer Relationship Specialty Start Date End Date Marcela Pinto MD [address] [place] [address] PCP - General Internal Medicine 08/04/14 documented as of this encounter
--- OUTSIDE RECORDS SUMMARY | 2023-06-18 02:52 | External Medical Summary | Summary of Care ---
Author Name Unknown Organization [place] [address] Care Team Providers Care Barrel Planer Name Role Phone Marcela Pinto MD Primary Care Provider + Reason for Visit * Reason Onset Date Comments FYI 04/23/2022 Encounter Details Date Type Department Care Team Description 04/23/2022 Telephone General Internal Medicine [facility] 200 [facility] [place] [address] Marcela Pinto MD 200 [facility] [place] [address] FYI Allergies Active Allergy Reactions Severity Noted Date Comments Valsartan 07/10/2010 Enalapril 05/21/2006 Escitalopram Oxalate Nausea/vomiting 10/11/2009 Nauseated Iodinated Diagnostic Agents Nausea/vomiting 05/2010 IV Contrast Iodine Hives 12/18/2009 IV Contrast Metoprolol Tartrate 11/18/2006 Made pulse low [place] Oil-Black Currant-Vit E 07/10/2010 Verapamil 03/21/2004 Bupropion Hcl 10/30/2009 Makes pt sick in the stomach documented as of this encounter (statuses as of 04/23/2022) Medications Medication Sig Dispensed Refills Start Date [...] Asthma with severity to be determined,COPD, moderate ([facility] [...] mg by mouth daily. 0 02/05/2021 Active Zafirlukast 20 MG Oral Tablet (Accolate)Indication s:Asthma with severity to be determined TAKE 1 TABLET BY MOUTH EVERY DAY 90 Tab 3 05/18/2021 Active Zoster Vac Recomb Adjuvanted 50 MCG/0.5ML Intramuscular Suspension Reconstituted (Shingrix) Inject 0.5 mL into a large muscle now and repeat dose in 60 to 180 days 1 Each 1 08/09/2021 Active Additional Information Patient not taking. Reported [...] Respimat 1.25 MCG/ACT Inhalation Aerosol Solution (Tiotropium [place] Monohydrate) Inhale by mouth. 0 Active Furosemide [...] the morning. 30 Tablet 5 02/19/2022 Active Promethazine HCl 25 MG Oral Tablet (Phenergan)Indicatio ns:Generalized osteoarthritis TAKE 1 TABLET BY MOUTH EVERY 6 HOURS NEEDED FOR NAUSEA 60 Tablet 2 03/01/2022 Active OneTouch Verio In Vitro Strip (Glucose [...] Tablet in the morning. 0 04/22/2022 Active documented as of this encounter (statuses as of 04/23/2022) Active Problems Problem Noted Date Type 2 [...] as of this encounter (statuses as of 04/23/2022) Resolved Problems Problem Noted Date Resolved Date [...] Hypoxemia 10/08/2011 10/30/2015 Genetic Sleep Disorder Research Other*[id number] 07/25/2011 05/15/2016 Diverticulitis of colon 07/25/2011 01/06/20 [...] as of this encounter (statuses as of 04/23/2022) Immunizations Name Administration Dates Next Due COVID-19 mRNA, LNP-s, No Pre serve, 2-Dose Series ([employer]) 08/21/2021,12/22/2020,2020 COVID-19, LNP-s, No Preserve , Tyler-sucrose, [...] Miscellaneous Notes * Telephone Encounter - JORDAN Brewer - 04/23/2022 3:58 PM EDT Patient is scheduled and aware of appt on 05/13/22. * Telephone Encounter - Samra Barrera, JORDAN - 04/23/2022 1:57 PM EDT Doris called from [employer] [employer] to inform the provider that the chart notes they received from 02/19/22 office visit does not have listed a reason why the pt is testing blood sugar 3 times daily and they need it to be stated in chart notes. Asked if the note can be addended but he stated it would not be able to addend because it is past 60 days. Pt will need to have a new visit scheduled with a reason why she is testing 3 times daily, pt will not be able to receive supply order until pt is seen and new chart notes are faxed. when pt has new visit. documented in this encounter Plan of Treatment Upcoming Encounters Date Type Specialty Care Team Description 05/13/2022 Office Visit Internal Medicine David Duke PA-C 200 [place] [address] 06/25/2022 Office Visit Internal Medicine Briseyda Barber MD [address] [place] [address] 06/25/2022 Office Visit Cardiology Hammad Lopez, [address] [facility] [place] [address] Health Maintenance Due Date Last Done Comments [...] COPD 12/18/2022 12/18/2021 CKD PHOS USE SMARTSET 34656 02/19/2023 05, 03/09/2021, 03/22/2019 DIABETES-URINE ALBUMIN/CREATININE EVERY 12 MONTHS 02/19/2023 02/19/2022, 07/09/2019, 07/27/2018, Additional history exists DIABETES-EYE EXAM 03/08/2023 03/08/2022, , 08/07/2020, Additional history exists CKD HGB USE SMARTSET 40948 04/11/202304/11, 04/11/2022, 02/19/2022, Additional history exists Dexa Scan 08/08/2025 08/08/2020, /, 06/19/2010, Additional history exists DTaP,Tdap,and Td Vaccines (2 - Td or Tdap) 06/04/2028 06/04/2018, 02/28/2009 Pneumococcal Vaccine: 65+ Years Completed 03/28/2015, 05/21/2006 GARDASIL-HPV IMMUNIZATION SERIES Aged Out No longer eligible based on patient's age to complete this topic MENINGOCOCCAL (MENACTRA/MENVEO) Aged Out No longer eligible based on patient's age to complete this topic documented as of this encounter Implants Not on filedocumented as of this encounter Advance Directives Documents on File Type Date Recorded Patient Clinical Biochemical Geneticist Expl anation Advanced 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 Directive Advanced Directive Advanced Directive Care Teams Barrel Planer Relationship Specialty Start Date End Date Marcela Pinto MD [address] [place] [address] PCP - General Internal Medicine 08/04/14 documented as of this encounter
--- OUTSIDE RECORDS SUMMARY | 2023-06-18 02:52 | External Medical Summary ---
Author Name Unknown Address Unknown Organization K09:[facility] [place] [address] Laboratory Report Ordering Provider Test Date Status ALOK MORGAN 05/13/2022 14:23:40 Final Observation Date Value Abnormality Reference (Units ) Status BUN 05/13/2022 14:23:40 19 6-20 (mg/dL) Final Creatinine 05/13/2022 14:23:40 1.1 Above high normal 0.5-1.0 (mg/dL) Final Glomerular filtration rate/1.73 sq M.predicted [Volume Rate/Area] in Serum, Plasma or Blood by Creatinine-based formula (CKD-EPI) 05/13/2022 14:23:40 48 Below low normal >=60 (mL/min) Final Performing Location [facility] [address]
--- OUTSIDE RECORDS SUMMARY | 2023-06-18 02:53 | External Medical Summary ---
Author Name Unknown Address Unknown Organization K01:[facility] [place] [facility] [address] [facility] [address] Laboratory Report Ordering Provider Test Date Status JOSE A JOHNSON 04/11/2022 11:45:35 Final Observation Date Value Abnormality Reference (Units ) Status SYNC LEUKOCYTES IN BLOOD BY AUTOMATED COUNT 04/11/2022 11:45:35 15.06 Above high normal 4.00-10.80 (K/uL) Final Segs 04/11/2022 11:45:35 63.2 40.0-75.0 (%) Final Lymphs % 04/11/2022 11:45:35 17.2 Below low normal 18.0-42.0 (%) Final Monos 04/11/2022 11:45:35 8.5 1.0-11.0 (%) Final Eosinophils 04/11/2022 11:45:35 9.6 Above high normal 0.0-6.0 (%) Final Basos 04/11/2022 11:45:35 0.6 0.0-2.0 (%) Final Immature Granulocyte, Percent 04/11/2022 11:45:35 0.9 0.0-2.0 (%) Final Absolute Segs 04/11/2022 11:45:35 9.52 Above high normal 1.80-7.70 (K/uL) Final Lymphs, absolute 04/11/2022 11:45:35 2.59 1.00-4.80 (K/ul) Final Monos, Abs 04/11/2022 11:45:35 1.28 Above high normal 0.00-1.10 (K/uL) Final Eos, Abs 04/11/2022 11:45:35 1.44 Above high normal 0.00-0.70 (K/uL) Final Basos, Abs 04/11/2022 11:45:35 0.09 0.00-0.20 (K/uL) Final Immature Granulocytes, Number 04/11/2022 11:45:35 0.14 0.00-0.20 (K/uL) Final Performing Location [facility] [place] [facility] [place] [facility] [place] [address] [facility] [address]
--- OUTSIDE RECORDS SUMMARY | 2023-06-18 02:53 | External Medical Summary | Summary of Care ---
Author Name Unknown Organization [place] [address] Care Team Providers Care Home Aide Name Role Phone Marcela Pinto MD Primary Care Provider + Reason for Visit * Reason Onset Date Comments Fax 04/02/2022 Status Check 04/02/2022 Encounter Details Date Type Department Care Team Description 04/02/2022 Telephone General Internal Medicine [facility] 200 [facility] [place] [address] Marcela Pinto MD 200 [facility] [address] Fax; Status Check Allergies Active Allergy Reactions Severity Noted Date Comments Valsartan 07/10/2010 Enalapril 05/21/2006 Escitalopram Oxalate Nausea/vomiting 10/11/2009 Nauseated Iodinated Diagnostic Agents Nausea/vomiting 05/2010 IV Contrast Iodine Hives 12/18/2009 IV Contrast Metoprolol Tartrate 11/18/2006 Made pulse low [place] Oil-Black Currant-Vit E 07/10/2010 Verapamil 03/21/2004 Bupropion Hcl 10/30/2009 Makes pt sick in the stomach documented as of this encounter (statuses as of 04/10/2022) Medications Medication Sig Dispensed Refills Start Date [...] mouth daily. 90 Cap 0 03/31/2019 Active ferrous sulfate (FEOSOL) 325 (65 FE) MG Tablet One tablet every other day 60 Tab 11 04/16/2019 Active albuterol sulfate (PROVENTIL) (2.5 MG/3ML) 0.083% [...] 1.25 MCG/ACT Inhalation Aerosol Solution (Tiotropium [place] Monohydrate) Inhale by mouth. 0 Active Furosemide [...] FOR NAUSEA 60 Tablet 2 03/01/2022 Active HYDROcodone-Acetamin ophen 5-325 MG Oral TabletIndications:Ge neralized osteoarthritis Take by mouth 1 Tablet every 6 hours as needed for Pain, Mild. 120 Tablet 0 03/13/2022 Active OneTouch Verio In Vitro Strip (Glucose Blood) Checks blood sugar 3 times a day. E11.9 DX 100 Strip 5 03/18/2022 Active Dicyclomine HCl 20 MG Oral Tablet (Bentyl)Indications: Chronic constipation TAKE 1 TABLET BY MOUTH EVERY DAY 90 Tablet 2 03/25/2022 Active documented as of this encounter (statuses as of 04/10/2022) Active Problems Problem Noted Date Type 2 diabetes mellitus wit h stage 3a chronic kidney disease, without long-term current use of insulin 11/19/2021 History of ESBL E. coli infection 2020 Subclinical hyperthyroidism 08/20/2021 Chronic kidney disease, stage 3a 021 Overview: Per CKD protocol Chronic systolic heart failure 05/24/202 1 Pulmonary HTN 03/05/2021 Chronic hypoxemic respiratory [...] as of this encounter (statuses as of 04/10/2022) Resolved Problems Problem Noted Date Resolved Date [...] Hypoxemia 10/08/2011 10/30/2015 Genetic Sleep Disorder Research Other*[id number] 07/25/2011 05/15/2016 Diverticulitis of colon 07/25/2011 01/06/20 [...] as of this encounter (statuses as of 04/10/2022) Immunizations Name Administration Dates Next Due COVID-19 mRNA, LNP-s, No Pre serve, 2-Dose Series ([employer]) 08/21/2021,12/22/2020,2020 Hepatitis B, 20+ yrs 10/01/2017,04/21/2017,03/20 Pneumococcal Conjugate [...] Telephone Encounter - Mohinder Landry RN - 04/10/2022 2:00 PM EDT Signed form along with last office visit note from 02/19/2022 faxed to [facility] at [phone] with confirmation. Form sent to scanning. * Telephone Encounter - Bobbi Fitch LPN - 04/08/2022 1:38 PM EDT Form has been received. Placed in provider's folder for review and signature. She returns to the office tomorrow. * Telephone Encounter - JORDAN Pate - 04/08/2022 1:25 PM EDT Patient calling in to check on the status of previous message. * Telephone Encounter - JORDAN Chowdary - 04/05/2022 2:28 PM EDT Dodie = [facility] is calling in to check on the status of previous message. Dodie adv there is no note documented the office received the fax * Telephone Encounter - JORDAN Youngblood - 04/02/2022 10:59 AM EDT Caller requesting the following information to be faxed: Name/Company of caller: [employer] Information requested to be faxed: Order for glucose monitor and chart notes Fax number: [phone] Attention to Name/Company: [facility] Any additional information?: [employer] is sending a form today with requested information for the provider to fill out. Once completed, she is asking that it be sent back to them at the number above. documented in this encounter Plan of Treatment Upcoming Encounters Date Type Specialty Care Team Description 06/25/2022 Office Visit [facility] [address] 06/25/2022 Office Visit Cardiology Hammad Lopez, DO [address] [facility] [place] [address] Health Maintenance Due Date Last Done Comments Zoster Vaccines (2 of 3) 08/31/2012 07/06/2012 COVID-19 Vaccine (4 - Booster for Pfizer series) 11/21/2021 08/21/2021, 12/22/2020, 2020 Depression Screening, Annual for Pts 12 and Over 08/08/2022 08/08/2021 CKD GFR USE SMARTSET 62088 08/22/202202/19, 11/19/2021, 11/08/2021, Additional history exists DIABETES-HGBA1C EVERY 6 MONTHS 08/22/2022 02/19/2022, 08/23/2021, 03/09/2021, Additional history exists DIABETES-FOOT EXAM 11/19/2022 11/19/2021, 0 12/21/2020, 10/19/2019, Additional history exists O2 ASSESSMENT COMPLETED IN PAST YEAR FOR COPD 12/18/2022 12/18/2021 BASIC METABOLIC PANEL (BMP) FOR HTN YEARLY 02/19/2023 02/19/2022, 11/19/2021, 11/08/2021, Additional history exists CKD HGB USE SMARTSET 92503 02/19/202302/19, 02/19/2022, 10/25/2021, Additional history exists CKD PHOS USE SMARTSET 71896 02/19/2023 05, 03/09/2021, 03/22/2019 DIABETES-URINE ALBUMIN/CREATININE EVERY 12 MONTHS 02/19/2023 02/19/2022, 07/09/2019, 07/27/2018, Additional history exists DIABETES-EYE EXAM 03/08/2023 03/08/2022, , 08/07/2020, Additional history exists Dexa Scan 08/08/2025 08/08/2020, 04/13, 06/19/2010, Additional history exists DTaP,Tdap,and Td Vaccines (2 - Td or Tdap) 06/04/2028 06/04/2018, 02/28/2009 Pneumococcal Vaccine: 65+ Years Completed 03/28/2015, 05/21/2006 Influenza Vaccine (FLU shot) Completed , 06/22/2020, 07/09/2019, Additional history exists GARDASIL-HPV IMMUNIZATION SERIES Aged Out No longer eligible based on patient's age to complete this topic MENINGOCOCCAL (MENACTRA/MENVEO) Aged Out No longer eligible based on patient's age to complete this topic documented as of this encounter Implants Not on filedocumented as of this encounter Advance Directives Documents on File Type Date Recorded Patient Window Trimmer Expl anation Advanced 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 Directive Advanced Directive Advanced Directive Care Teams Home Aide Relationship Specialty Start Date End Date Marcela Pinto MD [address] [place] [address] PCP - General Internal Medicine 08/04/14 documented as of this encounter
--- OUTSIDE RECORDS SUMMARY | 2023-06-18 02:53 | External Medical Summary | Summary of Care ---
Author Name Unknown Organization [place] [address] Care Team Providers Care Bullet Maker Name Role Phone Marcela Pinto MD Primary Care Provider + Encounter Details Date Type Department Care Team Description 04/16[facility]20[facility] [address] [place] [phone] [place], Covid Vaccine [address] [place] [phone] Encounter for immunization* Allergies Active Allergy Reactions Severity Noted Date Comments Valsartan 07/10/2010 Enalapril 05/21/2006 Escitalopram Oxalate Nausea/vomiting 10/11/2009 Nauseated Iodinated Diagnostic Agents Nausea/vomiting 05/2010 IV Contrast Iodine Hives 12/18/2009 IV Contrast Metoprolol Tartrate 11/18/2006 Made pulse low [place] Oil-Black Currant-Vit E 07/10/2010 Verapamil 03/21/2004 Bupropion Hcl 10/30/2009 Makes pt sick in the stomach documented as of this encounter (statuses as of 04/16/2022) Medications Medication Sig Dispensed Refills Start Date [...] Respimat 1.25 MCG/ACT Inhalation Aerosol Solution (Tiotropium [place] Monohydrate) Inhale by mouth. 0 Active Furosemide [...] as of this encounter (statuses as of 04/16/2022) Active Problems Problem Noted Date Type 2 [...] as of this encounter (statuses as of 04/16/2022) Resolved Problems Problem Noted Date Resolved Date [...] Hypoxemia 10/08/2011 10/30/2015 Genetic Sleep Disorder Research Other*[id number] 07/25/2011 05/15/2016 Diverticulitis of colon 07/25/2011 01/06/20 [...] as of this encounter (statuses as of 04/16/2022) Immunizations Name Administration Dates Next Due COVID-19 mRNA, LNP-s, No Pre serve, 2-Dose Series ([employer]) 08/21/2021,12/22/2020,2020 COVID-19, LNP-s, No Preserve , [place]-sucrose, [...] Internal Medicine Briseyda Barber MD [address] [place] [address] 06/25/2022 Office Visit Cardiology Hammad Lopez DO 132 [facility] [place] [address] Health Maintenance Due Date Last Done Comments Zoster Vaccines (2 of 3) 08/31/2012 07/06/2012 Influenza Vaccine (FLU shot) (#1) 2022 07/10/2021, 06/22/2020, 07/09/2019, Additional history exists Depression Screening, Annual for Pts 12 and Over 08/08/2022 08/08/2021 COVID-19 Vaccine (5 - Booster for Pfizer series) 08/17/2022 04/16/2022, 08/21/2021, 12/22/2020, Additional history exists DIABETES-HGBA1C EVERY 6 MONTHS 08/22/2022 02/19/2022, 08/23/2021, 03/09/2021, Additional history exists CKD GFR USE SMARTSET 36484 10/11/202204/11, 02/19/2022, 11/19/2021, Additional history exists DIABETES-FOOT EXAM 11/19/2022 11/19/2021, 0 12/21/2020, 10/19/2019, Additional history exists O2 ASSESSMENT COMPLETED IN PAST YEAR FOR COPD 12/18/2022 12/18/2021 CKD PHOS USE SMARTSET 54937 02/19/2023 05/, 03/09/2021, 03/22/2019 DIABETES-URINE ALBUMIN/CREATININE EVERY 12 MONTHS 02/19/2023 02/19/2022, 07/09/2019, 07/27/2018, Additional history exists DIABETES-EYE EXAM 03/08/2023 03/08/2022, , 08/07/2020, Additional history exists BASIC METABOLIC PANEL (BMP) FOR HTN YEARLY 04/11/2023 04/11/2022, 02/19/2022, 11/19/2021, Additional history exists CKD HGB USE SMARTSET 55912 04/11/202304/11, 04/11/2022, 02/19/2022, Additional history exists Dexa [...] of this encounter Visit Diagnoses Diagnosis Encounter for immunization- Primary Need for other specified prophylactic vaccination against single bacterial disease documented in this encounter Advance Directives Documents on File Type Date Recorded Patient Head Of Maintenance Expl anation Advanced 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 Directive Advanced Directive Advanced Directive Care Teams Bullet Maker Relationship Specialty Start Date End Date Marcela Pinto MD [address] [place], [place] [phone] PCP - General Internal Medicine 08/04/14 documented as of this encounter
--- OUTSIDE RECORDS SUMMARY | 2023-06-18 02:53 | External Medical Summary | Summary of Care ---
Author Name Unknown Organization [place] [address] Care Team Providers Care Zig Zag Stitcher Name Role Phone Marcela Pinto MD Primary Care Provider + Reason for Visit * Reason Comments Outpatient Testing Encounter Details Date Type Department Care Team Description 04/11/2022 Laboratory Laboratory [address] [place] [id number] [place] [phone] Fatigue, unspecified type; Iron deficiency anemia, unspecified iron deficiency anemia type Allergies Active Allergy Reactions Severity Noted Date Comments Valsartan 07/10/2010 Enalapril 05/21/2006 Escitalopram Oxalate Nausea/vomiting 10/11/2009 Nauseated Iodinated Diagnostic Agents Nausea/vomiting 05/2010 IV Contrast Iodine Hives 12/18/2009 IV Contrast Metoprolol Tartrate 11/18/2006 Made pulse low [place] Oil-Black Currant-Vit E 07/10/2010 Verapamil 03/21/2004 Bupropion Hcl 10/30/2009 Makes pt sick in the stomach documented as of this encounter (statuses as of 04/11/2022) Medications Medication Sig Dispensed Refills Start Date [...] Respimat 1.25 MCG/ACT Inhalation Aerosol Solution (Tiotropium [place] Monohydrate) Inhale by mouth. 0 Active Furosemide [...] as of this encounter (statuses as of 04/11/2022) Active Problems Problem Noted Date Type 2 [...] as of this encounter (statuses as of 04/11/2022) Resolved Problems Problem Noted Date Resolved Date [...] Hypoxemia 10/08/2011 10/30/2015 Genetic Sleep Disorder Research Other*[id number] 07/25/2011 05/15/2016 Diverticulitis of colon 07/25/2011 01/06/20 [...] as of this encounter (statuses as of 04/11/2022) Immunizations Name Administration Dates Next Due COVID-19 mRNA, LNP-s, No Pre serve, 2-Dose Series ([employer]) 08/21/2021,12/22/2020,2020 Hepatitis B, 20+ yrs 10/01/2017,04/21/2017,03/20 Pneumococcal [...] Encounters Date Type Specialty Care Team Description 04/16/2022 Immunization Ancillary [place], Covid19 Vaccine [address] [place] [address] 06/25/2022 Office Visit Internal Medicine Briseyda Barber MD 200 [facility] [place] [address] 06/25/2022 Office Visit Cardiology Hammad Lopez, DO 132 [facility] [place] [address] Pending Results Name Type Priority Associated Diagnoses Date /Time CBC WITH WBC DIFFERENTIAL Lab Routine Fatigue, unspecified type Iron deficiency anemia, unspecified iron deficiency anemia type 04/11/2022 11:45 AM EDT BASIC METABOLIC PANEL Lab Routine Fatigue, unspecified type 04/11/2022 11:45 AM EDT FERRITIN Lab Routine Fatigue, unspecified type Iron deficiency anemia, unspecified iron deficiency anemia type 04/11/2022 11:45 AM EDT CBC Lab Routine Fatigue, unspecified type Iron deficiency anemia, unspecified iron deficiency anemia type 04/11/2022 11:45 AM EDT DIFFERENTIAL, AUTOMATED Lab Routine Fatigue, unspecified type Iron deficiency anemia, unspecified iron deficiency anemia type 04/11/2022 11:45 AM EDT Health Maintenance Due Date Last Done Comments Zoster Vaccines (2 of 3) 08/31/2012 07/06/2012 COVID-19 Vaccine (4 - Booster for Pfizer series) 11/21/2021 08/21/2021, 12/22/2020, 2020 Depression Screening, Annual for Pts 12 and Over 08/08/2022 08/08/2021 CKD GFR USE SMARTSET 85598 08/22/202202/19, 11/19/2021, 11/08/2021, Additional history exists DIABETES-HGBA1C EVERY 6 MONTHS 08/22/2022 02/19/2022, 08/23/2021, 03/09/2021, Additional history exists DIABETES-FOOT EXAM 11/19/2022 11/19/2021, 0 12/21/2020, 10/19/2019, Additional history exists O2 ASSESSMENT COMPLETED IN PAST YEAR FOR COPD 12/18/2022 12/18/2021 BASIC METABOLIC PANEL (BMP) FOR HTN YEARLY 02/19/2023 02/19/2022, 11/19/2021, 11/08/2021, Additional history exists CKD HGB USE SMARTSET 39331 02/19/202302/19, 02/19/2022, 10/25/2021, Additional history exists CKD PHOS USE SMARTSET 73348 02/19/2023 05/, 03/09/2021, 03/22/2019 DIABETES-URINE ALBUMIN/CREATININE EVERY 12 MONTHS 02/19/2023 02/19/2022, 07/09/2019, 07/27/2018, Additional history exists DIABETES-EYE EXAM 03/08/2023 03/08/2022, , 08/07/2020, Additional history exists Dexa Scan 08/08/2025 08/08/2020, 07, 06/19/2010, Additional history [...] as of this encounter Visit Diagnoses Diagnosis Fatigue, unspecified type Iron deficiency anemia, unspecified iron deficiency anemia type documented in this encounter Advance Directives Documents on File Type Date Recorded Patient Hospice Clinical Supervisor Expl 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 Directive Advanced Directive Advanced Directive Care Teams Zig Zag Stitcher Relationship Specialty Start Date End Date Marcela Pinto MD [address] [place] [address] PCP - General Internal Medicine 08/04/14 documented as of this encounter
--- OUTSIDE RECORDS SUMMARY | 2023-06-18 02:53 | External Medical Summary | Summary of Care ---
Author Name Unknown Organization [place] [address] Care Team Providers Care Belly Dancer Name Role Phone Marcela Pinto MD Primary Care Provider + Reason for Visit * Reason Onset Date Comments Test Results 03/18/2022 Encounter Details Date Type Department Care Team Description 03/18/2022 Telephone General Internal Medicine [facility] 200 [facility] [place] [address] Marcela Pinto MD [address] [place] [address] Test Results Allergies Active Allergy Reactions Severity Noted Date Comments Valsartan 07/10/2010 Enalapril 05/21/2006 Escitalopram Oxalate Nausea/vomiting 10/11/2009 Nauseated Iodinated Diagnostic Agents Nausea/vomiting 05/2010 IV Contrast Iodine Hives 12/18/2009 IV Contrast Metoprolol Tartrate 11/18/2006 Made pulse low [place] Oil-Black Currant-Vit E 07/10/2010 Verapamil 03/21/2004 Bupropion Hcl 10/30/2009 Makes pt sick in the stomach documented as of this encounter (statuses as of 03/19/2022) Medications Medication Sig Dispensed Refills Start Date [...] EVERY DAY 90 Tablet 3 09/28/2021 Active Dicyclomine HCl 20 MG Oral Tablet (Bentyl)Indications: Chronic constipation TAKE 1 TABLET BY MOUTH EVERY DAY 90 Tablet 2 10/04/2021 Active Metoprolol Succinate ER 25 MG Oral Tablet Extended Release 24 Hour (toPROL XL)Indications: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 135 Tablet 3 10/04/2021 Active Spiriva Respimat 1.25 MCG/ACT Inhalation Aerosol Solution (Tiotropium [place] Monohydrate) Inhale by mouth. 0 Active Furosemide [...] E11.9 DX 100 Strip 5 03/18/2022 Active documented as of this encounter (statuses as of 03/19/2022) Active Problems Problem Noted Date Type 2 [...] as of this encounter (statuses as of 03/19/2022) Resolved Problems Problem Noted Date Resolved Date [...] Hypoxemia 10/08/2011 10/30/2015 Genetic Sleep Disorder Research Other*[id number] 07/25/2011 05/15/2016 Diverticulitis of colon 07/25/2011 01/06/20 [...] as of this encounter (statuses as of 03/19/2022) Immunizations Name Administration Dates Next Due COVID-19 mRNA, LNP-s, No Pre serve, 2-Dose Series ([employer]) 08/21/2021,12/22/2020,2020 Hepatitis B, 20+ yrs 10/01/2017,04/21/2017,03/20 Pneumococcal [...] encounter Miscellaneous Notes * Telephone Encounter - Eliezer Bernard RPh - 03/19/2022 3:14 PM EDT Patient called confused about ferrous sulfate. Says she has already been taking 1 tablet every day for quite a while, at least for several months. Since iron is still low while taking 1 tab daily, patient is questioning if she should just continue 1 tab daily + add vit C, or increase to 2 tabs daily, or 2 tabs daily + vit C. Please advise patient on iron tx. Patient Phone Numbers Thanks, Ihsan Metz.Ph. Clinical Pharmacist Telepharmacy [phone] 03/19/2022,3:18 PM * Telephone Encounter - Sherwin Callejas V multiple needle stitcher - 03/19/2022 3:09 PM EDT Pt calling about script for ferrous sulfate. Warm transferred to [facility]. Thanks, Sherwin Callejas, Pht Door Cutter Pharmacy Refill Call Center 03/19/2022,3:09 PM * Telephone Encounter - PARIS Arita - 03/18/2022 1:33 PM EDT Pt informed of results and verbalized understanding PARIS Arita * Telephone Encounter - PARIS Arita - 03/18/2022 1:29 PM EDT ----- Message from Marcela Pinto MD sent at 03/16/2022 7:01 PM EDT ----- Need to let her know that Hb and iron is chronically low and still low. She should take OTC Ferrosusulfate 325 mg one or every other day with vit C. Potassium was borderline high and continue hydration. Repeat cbcd, ferritin, bmp in addition to occult blood in a week or sometime next week. Orders are in. documented in this encounter Plan of Treatment Upcoming Encounters Date Type Specialty Care Team Description 06/25/2022 Office Visit Internal Medicine [facility]da Barber [facility] [address] [facility] [address] 06/25/2022 Office Visit Cardiology Hammad Lopez, 132 [facility] [place] [address] Health Maintenance Due Date Last Done Comments Zoster Vaccines (2 of 3) 08/31/2012 07/06/2012 COVID-19 Vaccine (4 - Booster for Pfizer series) 11/21/2021 08/21/2021, 12/22/2020, 2020 Depression Screening, Annual for Pts 12 and Over 08/08/2022 08/08/2021 CKD GFR USE SMARTSET 49959 08/22/202202/19, 11/19/2021, 11/08/2021, Additional history exists DIABETES-HGBA1C EVERY 6 MONTHS 08/22/2022 02/19/2022, 08/23/2021, 03/09/2021, Additional history exists DIABETES-FOOT EXAM 11/19/2022 11/19/2021, 0 12/21/2020, 10/19/2019, Additional history exists O2 ASSESSMENT COMPLETED IN PAST YEAR FOR COPD 12/18/2022 12/18/2021 BASIC METABOLIC PANEL (BMP) FOR HTN YEARLY 02/19/2023 02/19/2022, 11/19/2021, 11/08/2021, Additional history exists CKD HGB USE SMARTSET 78035 02/19/202302/19, 02/19/2022, 10/25/2021, Additional history exists CKD PHOS USE SMARTSET 69732 02/19/2023 05/, 03/09/2021, 03/22/2019 DIABETES-URINE ALBUMIN/CREATININE EVERY [...] Documents on File Type Date Recorded Patient Principal Administrative Clerk Expl 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 Directive Advanced Directive Advanced Directive Care Teams Belly Dancer Relationship Specialty Start Date End Date Marcela Pinto MD 200 [place] [address] PCP - General Internal Medicine 08/04/14 documented as of this encounter
--- OUTSIDE RECORDS SUMMARY | 2023-06-18 02:53 | External Medical Summary ---
Author Name Unknown Address Unknown Organization K01:[place] [facility] [place] [address] [facility] [address] Laboratory Report Ordering Provider Test Date Status JOSE A JOHNSON 04/11/2022 11:45:35 Final Observation Date Value Abnormality Reference (Units ) Status WBC, Total 04/11/2022 11:45:35 15.06 Above high normal 4.00-10.80 (K/uL) Final RBC 04/11/2022 11:45:35 3.93 3.85-5.15 (M/uL) Final Hemoglobin 04/11/2022 11:45:35 10.8 Below low normal 12.0-15.3 (g/dL) Final HCT 04/11/2022 11:45:35 35.9 Below low normal 36.0-45.2 (%) Final MCV 04/11/2022 11:45:35 91.3 81.5-97.5 (fL) Final MCH 04/11/2022 11:45:35 27.5 27.0-34.0 (pg) Final MCHC 04/11/2022 11:45:35 30.1 32.0-36.0 (g/dL) Final RDW 04/11/2022 11:45:35 15.1 11.5-15.5 (%) Final MPV 04/11/2022 11:45:35 10.2 6.6-11.1 (fL) Final Nucleated erythrocytes/100 leukocytes [Ratio] in Blood by Automated count 04/11/2022 11:45:35 0 <=0 (/100 WBCs) Final Platelets 04/11/2022 11:45:35 429 Above high normal 140-400 (K/uL) Final Performing Location [facility] [place] [address] [place] [address]
--- OUTSIDE RECORDS SUMMARY | 2023-06-18 02:53 | External Medical Summary | Summary of Care ---
Author Name Unknown Organization [place] [address] Care Team Providers Care Senior Mechanical Designer Name Role Phone Alex Pinto MD Primary Care Provider + Reason for Visit * Reason Comments eRx-Medication Refill Encounter Details Date Type Department Care Team Description 03/21/2022 Refill General Internal Medicine [facility] [address] [facility] [place] [address] Alex Pinto MD [address] [place] [address] Chronic constipation Allergies Active Allergy Reactions Severity Noted Date Comments Valsartan 07/10/2010 Enalapril 05/21/2006 Escitalopram Oxalate Nausea/vomiting 10/11/2009 Nauseated Iodinated Diagnostic Agents Nausea/vomiting 05/2010 IV Contrast Iodine Hives 12/18/2009 IV Contrast Metoprolol Tartrate 11/18/2006 Made pulse low [place] Oil-Black Currant-Vit E 07/10/2010 Verapamil 03/21/2004 Bupropion Hcl 10/30/2009 Makes pt sick in the stomach documented as of this encounter (statuses as of 03/25/2022) Medications Medication Sig Dispensed Refills Start Date [...] mouth daily. 90 Cap 0 9 Active ferrous sulfate (FEOSOL) 325 (65 FE) MG Tablet One tablet every other day 60 Tab 11 9 Active albuterol sulfate (PROVENTIL) (2.5 MG/3ML) [...] mg by mouth daily. 0 1 Active Zafirlukast 20 MG Oral Tablet (Accolate)Indicati ons:Asthma with severity to be determined TAKE 1 TABLET BY MOUTH EVERY DAY 90 Tab 3 1 Active Zoster Vac Recomb Adjuvanted 50 [...] Respimat 1.25 MCG/ACT Inhalation Aerosol Solution (Tiotropium [place] Monohydrate) Inhale by mouth. 0 Active Furosemide [...] the morning. 30 Tablet 5 2 Active Promethazine HCl 25 MG Oral Tablet (Phenergan)Indicat ions:Generalized osteoarthritis TAKE 1 TABLET BY MOUTH EVERY 6 HOURS NEEDED FOR NAUSEA 60 Tablet 2 2 Active HYDROcodone-Acetam inophen 5-325 MG Oral TabletIndications: Generalized osteoarthritis Take by mouth 1 Tablet every 6 hours as needed for Pain, Mild. 120 Tablet 0 2 Active OneTouch Verio In Vitro Strip (Glucose Blood) Checks blood sugar 3 times a day. E11.9 DX 100 Strip 5 2 Active Dicyclomine HCl 20 MG Oral Tablet (Bentyl)Indication s:Chronic constipation TAKE 1 TABLET BY MOUTH EVERY DAY 90 Tablet 2 2 Active Dicyclomine HCl 20 MG Oral Tablet (Bentyl)Indication s:Chronic constipation TAKE 1 TABLET BY MOUTH EVERY DAY 90 Tablet 2 1 03/25/20 22 Discontinued documented as of this encounter (statuses as of 03/25/2022) Active Problems Problem Noted Date Type 2 [...] as of this encounter (statuses as of 03/25/2022) Resolved Problems Problem Noted Date Resolved Date [...] Hypoxemia 10/08/2011 10/30/2015 Genetic Sleep Disorder Research Other*[id number] 07/25/2011 05/15/2016 Diverticulitis of colon 07/25/2011 01/06/20 [...] as of this encounter (statuses as of 03/25/2022) Immunizations Name Administration Dates Next Due COVID-19 mRNA, LNP-s, No Pre serve, 2-Dose Series (MyClasses) 08/21/2021,12/22/2020,2020 Hepatitis B, 20+ yrs 10/01/2017,04/21/2017,03/20 Pneumococcal [...] Telephone Encounter - Alex Pinto MD - 03/25/2022 7:55 AM EDT Signed Prescriptions: Disp Refills Dicyclomine HCl 20 MG Oral Tablet (Bentyl) 90 Tab*2 Sig: TAKE 1 TABLET BY MOUTH EVERY DAY Authorizing Provider: ALEX PINTO * Telephone Encounter - Eliezer Bernard [facility] - 03/24/2022 12:34 PM EDT Pending Prescriptions: Disp Refills Dicyclomine HCl 20 MG Oral Tablet [Pharmac*90 Tab*2 Sig: TAKE 1 TABLET BY MOUTH EVERY DAY * Telephone Encounter - Eliezer Bernard RPh - 03/24/2022 12:34 PM EDT Refill pharmacists currently not authorized to approve refills for the pended medication(s) per refill protocol. Please approve if appropriate. Thanks, Eliezer Bernard, Ihsan.Ph. Clinical Pharmacist [facility] [phone] 03/24/2022,12:34 PM Pending Prescriptions: Disp Refills Dicyclomine HCl 20 MG Oral Tablet [Pharmac*90 Tab*2 Sig: TAKE 1 TABLET BY MOUTH EVERY DAY Last Visit: 02/19/2022 (in office), 08/08/2020 (telemedicine) Next Visit: 06/25/2022 If no future appointments scheduled, and last appointment is greater than a year ago, please schedule patient for a follow-up appointment Last date the medication was ordered: 10-04-21 Pharmacy: [id number] [id number] [facility] Is this request for a controlled substance?No [...] Lab Results Component Value Date/Time CREAT 0.8 02/19/2022 04:04 PM CREAT 1.08 (A) 06/12/2021 12:00 AM CREAT 1.0 05/27/2020 04:51 PM POTASSIUM 5.4 (H) 02/19/2022 04:04 PM POTASSIUM 4.1 06/12/2021 12:00 AM POTASSIUM [...] Visit Internal Medicine Briseyda Barber MD [address] [place] [address] 06/25/2022 Office Visit Cardiology Hammad Lopez, [address] [place] [address] Health Maintenance Due Date Last Done Comments Zoster Vaccines (2 of 3) 08/31/2012 07/06/2012 COVID-19 Vaccine (4 - Booster for Pfizer series) 11/21/2021 08/21/2021, 12/22/2020, 2020 Depression Screening, Annual for Pts 12 and Over 08/08/2022 08/08/2021 CKD GFR USE SMARTSET 97370 08/22/202202/19, 11/19/2021, 11/08/2021, Additional history exists DIABETES-HGBA1C EVERY 6 MONTHS 08/22/2022 02/19/2022, 08/23/2021, 03/09/2021, Additional history exists DIABETES-FOOT EXAM 11/19/2022 11/19/2021, 0 12/21/2020, 10/19/2019, Additional history exists O2 ASSESSMENT COMPLETED IN PAST YEAR FOR COPD 12/18/2022 12/18/2021 BASIC METABOLIC PANEL (BMP) FOR HTN YEARLY 02/19/2023 02/19/2022, 11/19/2021, 11/08/2021, Additional history exists CKD HGB USE SMARTSET 31284 02/19/202302/19, 02/19/2022, 10/25/2021, Additional history exists CKD PHOS USE SMARTSET 96952 02/19/2023 05, 03/09/2021, 03/22/2019 DIABETES-URINE ALBUMIN/CREATININE EVERY [...] of this encounter Visit Diagnoses Diagnosis Chronic constipation Unspecified constipation documented in this encounter Advance Directives Documents on File Type Date Recorded Patient Site Coordinator Expl anation Advanced 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 Advanced Directive Advanced Directive Care Teams Senior Mechanical Designer Relationship Specialty Start Date End Date Alex Pinto MD [address] [place] [address] PCP - General Internal Medicine 08/04/14 documented as of this encounter
--- OUTSIDE RECORDS SUMMARY | 2023-06-18 02:53 | External Medical Summary | Summary of Care ---
Author Name Unknown Organization [place] [address] Care Team Providers Care Steel Heater Name Role Phone Alex Pinto MD Primary Care Provider + Reason for Visit * Reason Onset Date Comments Medication Refill 04/16/2022 Encounter Details Date Type Department Care Team Description 04/16/2022 Refill General Internal Medicine [facility] [address] [place] [address] Alex Pinto MD [address] [facility] [place] [address] GENERAL OSTEOARTHROSIS Allergies Active Allergy Reactions Severity Noted Date Comments Valsartan 07/10/2010 Enalapril 05/21/2006 Escitalopram Oxalate Nausea/vomiting 10/11/2009 Nauseated Iodinated Diagnostic Agents Nausea/vomiting 05/2010 IV Contrast Iodine Hives 12/18/2009 IV Contrast Metoprolol Tartrate 11/18/2006 Made pulse low [place] Oil-Black Currant-Vit E 07/10/2010 Verapamil 03/21/2004 Bupropion [...] :Asthma with severity to be determined,COPD, moderate ([facility], [...] Take 81 mg by mouth daily. 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 135 Tablet 3 1 Active Spiriva Respimat 1.25 MCG/ACT Inhalation Aerosol Solution (Tiotropium [place] Monohydrate) Inhale by mouth. 0 Active Furosemide [...] FOR NAUSEA 60 Tablet 2 2 Active OneTouch Verio In Vitro Strip (Glucose Blood) Checks blood sugar 3 times a day. E11.9 DX 100 Strip 5 2 Active Dicyclomine HCl 20 MG Oral Tablet (Bentyl)Indications :Chronic constipation TAKE 1 TABLET BY MOUTH EVERY DAY 90 Tablet 2 2 Active HYDROcodone-Acetami nophen 5-325 MG Oral TabletIndications:G eneralized osteoarthritis Take by mouth 1 Tablet every 6 hours as needed for Pain, Mild. 120 Tablet 0 2 Active HYDROcodone-Acetami nophen 5-325 MG Oral TabletIndications:G eneralized osteoarthritis Take by mouth 1 Tablet every 6 hours as needed for Pain, Mild. 120 Tablet 0 2 04/16/20 22 Discontinu ed(Refill) documented as of this [...] Hypoxemia 10/08/2011 10/30/2015 Genetic Sleep Disorder Research Other*[id number] 07/25/2011 05/15/2016 Diverticulitis of colon 07/25/2011 01/06/20 [...] mRNA, LNP-s, No Pre serve, 2-Dose Series (i-nexus) 08/21/2021,12/22/2020,2020 COVID-19, LNP-s, No Preserve , [place]-sucrose, [...] Telephone Encounter - Alex Pinto MD - 04/16/2022 1:19 PM EDT Signed Prescriptions: Disp Refills HYDROcodone-Acetaminophen 5-325 MG Oral Ta*120 Ta*0 Sig: Take by mouth 1 Tablet every 6 hours as needed for Pain, Mild. Authorizing Provider: ALEX PINTO * Telephone Encounter - Chantel MirandaNICOL - 04/16/2022 9:23 AM EDT Pending Prescriptions: Disp Refills HYDROcodone-Acetaminophen 5-325 MG Oral T*120 Ta*0 Sig: Take by mouth 1 Tablet every 6 hours as needed for Pain, Mild. Last Visit: 02/19/2022 (in office), 08/08/2020 (telemedicine) Next Visit: 06/25/2022 Last date the medication was ordered: 03/13/22 Patient Active Problem List Diagnosis Code Asthma [...] [facility]) E11.9 Elevated plasma metanephrines R79.89 Irritable bowel syndrome with constipation K58.1 HECTOR (generalized anxiety disorder) F41.1 COPD, group B, 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 ([facility]) J44.9 Morbid obesity with BMI of 40.0-44.9, adult ([facility]) E66.01, Z68.41 Gastro-esophageal reflux disease without esophagitis K21.9 Paroxysmal atrial fibrillation ([facility]) I48.0 Chronic systolic heart failure ([facility]) I50.22 Pulmonary HTN ([facility]) I27.20 Chronic hypoxemic respiratory failure ([facility]) J96.11 Chronic kidney disease, stage 3a ([facility]) N18.31 Subclinical hyperthyroidism E05.90 History of ESBL E. coli infection Z86.19 Type 2 diabetes mellitus with stage 3a chronic kidney disease, without long- term current use ofinsulin ([facility]) E11.22, N18.31 Labs: Lab Results Component Value Date/Time CREATININE - [facility] 1.0 04/11/2022 11:45 AM CREATININE - [facility] 1.0 05/27/2020 04:51 [...] Results Component Value Date/Time POTASSIUM - [facility] 4.5 04/11/2022 11:45 AM POTASSIUM - [facility] 4.0 05/27/2020 04:51 [...] Results Component Value Date/Time ALT - [facility] 11 02/19/2022 04:04 PM ALT - [facility] 15 05/27/2020 04:51 [...] Visit Internal Medicine Briseyda Barber MD [address] [facility], [place] [id number] 06/25/2022 Office Visit Cardiology Hammad Lopez DO [address] [facility] [place] [address] Health Maintenance Due Date Last Done Comments [...] Additional history exists CKD GFR USE SMARTSET 07893 10/11/202204/11, 02/19/2022, 11/19/2021, Additional history exists DIABETES-FOOT EXAM 11/19/2022 11/19/2021, 0 12/21/2020, 10/19/2019, Additional history exists O2 ASSESSMENT COMPLETED IN PAST YEAR FOR COPD 12/18/2022 12/18/2021 CKD PHOS USE SMARTSET 45972 02/19/2023 02/10, 03/09/2021, 03/22/2019 DIABETES-URINE ALBUMIN/CREATININE EVERY 12 MONTHS 02/19/2023 02/19/2022, 07/09/2019, 07/27/2018, Additional history exists DIABETES-EYE EXAM 03/08/2023 03/08/2022, , 08/07/2020, Additional history exists BASIC METABOLIC PANEL (BMP) FOR HTN YEARLY 04/11/2023 04/11/2022, 02/19/2022, 11/19/2021, Additional history exists CKD HGB USE SMARTSET 91369 04/11/202304/11, 04/11/2022, 02/19/2022, Additional history exists Dexa [...] on File Type Date Recorded Patient Supervisor Fiber Locking Expl anation Advanced 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 Directive Advanced Directive Advanced Directive Care Teams Steel Heater Relationship Specialty Start Date End Date Alex Pinto MD [address] [place] [address] PCP - General Internal Medicine 08/04/14 documented as of this encounter
--- OUTSIDE RECORDS SUMMARY | 2023-06-18 02:53 | External Medical Summary ---
Author Name Unknown Address Unknown Organization K01:[facility] [place] [address] [place] [address] Laboratory Report Ordering Provider Test Date Status JOSE A JOHNSON 04/11/2022 11:45:35 Final Observation Date Value Abnormality Reference (Units ) Status BUN 04/11/2022 11:45:35 16 6-20 (mg/dL) Final Creatinine 04/11/2022 11:45:35 1.0 0.5-1.0 (mg/dL) Final Glomerular filtration rate/1.73 sq M.predicted [Volume Rate/Area] in Serum, Plasma or Blood by Creatinine-based formula (CKD-EPI) 04/11/2022 11:45:35 53 Below low normal >=60 (mL/min) Final Performing Location [facility] - [address] [place] [address]
--- OUTSIDE RECORDS SUMMARY | 2023-06-18 02:53 | External Medical Summary ---
Author Name Unknown Address Unknown Organization K01:[facility] - [address] [facility] [address] Laboratory Report Ordering Provider Test Date Status JOSE A JOHNSON 04/11/2022 11:45:35 Final Observation Date Value Abnormality Reference (Units ) Status Ferritin 04/11/2022 11:45:35 157 Above high normal 13 -150 (ng/mL) Final Performing Location LABORATORY [facility] - [address] [facility] [address]
--- OUTSIDE RECORDS SUMMARY | 2023-06-18 02:53 | External Medical Summary | Summary of Care ---
Author Name Unknown Organization [place] [address] Care Team Providers Care Armature Winder Repair Helper Name Role Phone Marcela Pinto MD Primary Care Provider + Reason for Visit * Reason Onset Date Comments Test Results 03/18/2022 Encounter Details Date Type Department Care Team Description 03/18/2022 Telephone General Internal Medicine [facility] [address] [facility] [place] [address] Marcela Pinto MD [address] [place] [address] Test Results Allergies Active Allergy Reactions Severity Noted Date Comments Valsartan 07/10/2010 Enalapril 05/21/2006 Escitalopram Oxalate Nausea/vomiting 10/11/2009 Nauseated Iodinated Diagnostic Agents Nausea/vomiting 05/2010 IV Contrast Iodine Hives 12/18/2009 IV Contrast Metoprolol Tartrate 11/18/2006 Made pulse low [place] Oil-Black Currant-Vit E 07/10/2010 Verapamil 03/21/2004 Bupropion Hcl 10/30/2009 Makes pt sick in the stomach documented as of this encounter (statuses as of 03/20/2022) Medications Medication Sig Dispensed Refills Start Date [...] Asthma with severity to be determined,COPD, moderate ([facility]) USE ONE NEBULIZER TREATMENT TWICE A DAY DIRECTED FOR WORSENING ASTHMA. J45.909, J44.9 225 mL 1 06/29/2019 Active Albuterol Sulfate (VENTOLIN HFA) 108 (90 Base) MCG/ACT AERS Inhale 2 Puffs by mouth 2 times a day. 0 12/27/2019 Active Lancets MISCIndications:Type 2 diabetes mellitus with hemoglobin A1c goal of less than 7.0% ([facility]) Use as directed. USE TO TEST [...] Respimat 1.25 MCG/ACT Inhalation Aerosol Solution (Tiotropium [place] Monohydrate) Inhale by mouth. 0 Active Furosemide [...] as of this encounter (statuses as of 03/20/2022) Active Problems Problem Noted Date Type 2 [...] as of this encounter (statuses as of 03/20/2022) Resolved Problems Problem Noted Date Resolved Date [...] Hypoxemia 10/08/2011 10/30/2015 Genetic Sleep Disorder Research Other*[id number] 07/25/2011 05/15/2016 Diverticulitis of colon 07/25/2011 01/06/20 [...] as of this encounter (statuses as of 03/20/2022) Immunizations Name Administration Dates Next Due COVID-19 mRNA, LNP-s, No Pre serve, 2-Dose Series ([employer]) 08/21/2021,12/22/2020,2020 Hepatitis B, 20+ yrs 10/01/2017,04/21/2017,03/20 Pneumococcal [...] Telephone Encounter - Eliezer Bernard RPh - 03/20/2022 11:39 AM EDT Patient informed to continue ferrous sulfate 1 tab daily and to add vit C daily. Patient picked up both at pharmacy yesterday. Will get repeat labs as ordered. Thanks, Eliezer Bernard, Ihsan.Ph. Clinical Pharmacist [facility] [phone] 03/20/2022,11:40 AM * Telephone Encounter - Marcela Pinto MD - 03/20/2022 11:26 AM EDT Ideally, iron pill should be one pill every other day with vit C if possible for better absorption and also to avoid constipation but if she is used to taking one daily its okay. No need for 2 pills daily. * Telephone Encounter - Eliezer Bernard RPh [...] on iron tx. Patient Phone Numbers Thanks, Eliezer Bernard, R.Ph. Clinical Pharmacist [facility] [phone] 03/19/2022,3:18 PM * Telephone Encounter - Sherwin Callejas V grade and center marker - 03/19/2022 3:09 PM EDT Pt calling about script for ferrous sulfate. Warm transferred to [facility]. Thanks, Sherwin Callejas Pht Income Tax Preparer Pharmacy Refill Call Center 03/19/2022,3:09 PM * [...] Visit Internal Medicine Briseyda Barber MD [address] [facility] [place] [address] 06/25/2022 Office Visit Cardiology Hmamad Lopez, DO [address] [place] [address] Health Maintenance Due Date Last Done Comments Zoster Vaccines (2 of 3) 08/31/2012 07/06/2012 COVID-19 Vaccine (4 - Booster for Pfizer series) 11/21/2021 08/21/2021, 12/22/2020, 2020 Depression Screening, Annual for Pts 12 and Over 08/08/2022 08/08/2021 CKD GFR USE SMARTSET 97586 08/22/202202/19, 11/19/2021, 11/08/2021, Additional history exists DIABETES-HGBA1C EVERY 6 MONTHS 08/22/2022 02/19/2022, 08/23/2021, 03/09/2021, Additional history exists DIABETES-FOOT EXAM 11/19/2022 11/19/2021, 0 12/21/2020, 10/19/2019, Additional history exists O2 ASSESSMENT COMPLETED IN PAST YEAR FOR COPD 12/18/2022 12/18/2021 BASIC METABOLIC PANEL (BMP) FOR HTN YEARLY 02/19/2023 02/19/2022, 11/19/2021, 11/08/2021, Additional history exists CKD HGB USE SMARTSET 27443 02/19/202302/19, 02/19/2022, 10/25/2021, Additional history exists CKD PHOS USE SMARTSET 20930 02/19/2023 05, 03/09/2021, 03/22/2019 DIABETES-URINE ALBUMIN/CREATININE EVERY [...] Documents on File Type Date Recorded Patient Wall Washer Expl anation Advanced 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 Directive Advanced Directive Advanced Directive Care Teams Armature Winder Repair Helper Relationship Specialty Start Date End Date Marcela Pinto MD [address] [place] [address] PCP - General Internal Medicine 08/04/14 documented as of this encounter
--- OUTSIDE RECORDS SUMMARY | 2023-06-18 02:53 | External Medical Summary | Summary of Care ---
Author Name Unknown Organization [place] [address] Care Team Providers Care Whip Sawyer Name Role Phone Marcela Pnito MD Primary Care Provider + Reason for Visit * Reason Onset Date Comments Test Results 03/18/2022 Encounter Details Date Type Department Care Team Description 03/18/2022 Telephone General Internal Medicine [facility] [address] [facility] [place] [address] Marcela Pinto MD [address] [place] [address] Test Results Allergies Active Allergy Reactions Severity Noted Date Comments Valsartan 07/10/2010 Enalapril 05/21/2006 Escitalopram Oxalate Nausea/vomiting 10/11/2009 Nauseated Iodinated Diagnostic Agents Nausea/vomiting 05/2010 IV Contrast Iodine Hives 12/18/2009 IV Contrast Metoprolol Tartrate 11/18/2006 Made pulse low [place] Oil-Black Currant-Vit E 07/10/2010 Verapamil 03/21/2004 Bupropion [...] Respimat 1.25 MCG/ACT Inhalation Aerosol Solution (Tiotropium [place] Monohydrate) Inhale by mouth. 0 Active [...] Hypoxemia 10/08/2011 10/30/2015 Genetic Sleep Disorder Research Other*[id number] 07/25/2011 05/15/2016 Diverticulitis of colon 07/25/2011 01/06/20 [...] mRNA, LNP-s, No Pre serve, 2-Dose Series ([employer]) 08/21/2021,12/22/2020,2020 Hepatitis B, 20+ yrs 10/01/2017,04/21/2017,03/20 Pneumococcal [...] daily. * Telephone Encounter - Eliezer Bernard [facility] - 03/19/2022 3:14 PM EDT Patient called [...] Numbers Thanks, Eliezer Bernard, R.Ph. Clinical Pharmacist Telepharmacy [phone] 03/19/2022,3:18 PM * Telephone Encounter - CRISTIANO Livingston - 03/19/2022 3:09 PM EDT Pt calling about script for ferrous sulfate. Warm transferred to [facility]. Thanks, Sherwin Callejas Pht Cosmetic Sales Assistant Pharmacy Refill Call Center 03/19/2022,3:09 PM * [...] Visit Internal Medicine Briseyda Barber MD [address] [place] [address] 06/25/2022 Office Visit Cardiology Hammad Lopez, DO [address] [facility] [place] [address] Health Maintenance Due Date Last Done Comments Zoster Vaccines (2 of 3) 08/31/2012 07/06/2012 COVID-19 Vaccine (4 - Booster for Pfizer series) 11/21/2021 08/21/2021, 12/22/2020, 2020 Depression Screening, Annual for Pts 12 and Over 08/08/2022 08/08/2021 CKD GFR USE SMARTSET 29084 08/22/202202/19, 11/19/2021, 11/08/2021, Additional history exists DIABETES-HGBA1C EVERY 6 MONTHS 08/22/2022 02/19/2022, 08/23/2021, 03/09/2021, Additional history exists DIABETES-FOOT EXAM 11/19/2022 11/19/2021, 0 12/21/2020, 10/19/2019, Additional history exists O2 ASSESSMENT COMPLETED IN PAST YEAR FOR COPD 12/18/2022 12/18/2021 BASIC METABOLIC PANEL (BMP) FOR HTN YEARLY 02/19/2023 02/19/2022, 11/19/2021, 11/08/2021, Additional history exists CKD HGB USE SMARTSET 39897 02/19/202302/19, 02/19/2022, 10/25/2021, Additional history exists CKD PHOS USE SMARTSET 51301 02/19/2023 05, 03/09/2021, 03/22/2019 DIABETES-URINE ALBUMIN/CREATININE EVERY [...] Documents on File Type Date Recorded Patient Nuclear Engineering Technician Expl 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 Directive Advanced Directive Advanced Directive Care Teams Whip Sawyer Relationship Specialty Start Date End Date Marcela Pinto MD [address] [place] [address] PCP - General Internal Medicine 08/04/14 documented as of this encounter
--- OUTSIDE RECORDS SUMMARY | 2023-06-18 02:53 | External Medical Summary | Summary of Care ---
Author Name Unknown Organization [place] [address] Care Team Providers Care Chemistry Intern Name Role Phone Marcela Pinto MD Primary Care Provider + Reason for Visit * Reason Onset Date Comments Test Results 04/22/2022 Encounter Details Date Type Department Care Team Description 04/22/2022 Telephone General Internal Medicine [facility] [place] [address] [facility] [place] [address] Marcela Pinto MD 200 [facility] [place] [address] Test Results Allergies Active Allergy Reactions Severity Noted Date Comments Valsartan 07/10/2010 Enalapril 05/21/2006 Escitalopram Oxalate Nausea/vomiting 10/11/2009 Nauseated Iodinated Diagnostic Agents Nausea/vomiting 05/2010 IV Contrast Iodine Hives 12/18/2009 IV Contrast Metoprolol Tartrate 11/18/2006 Made pulse low [place] Oil-Black Currant-Vit E 07/10/2010 Verapamil 03/21/2004 Bupropion [...] Respimat 1.25 MCG/ACT Inhalation Aerosol Solution (Tiotropium [place] Monohydrate) Inhale by mouth. 0 Active Furosemide [...] Tablet in the morning. 0 2 Active ferrous sulfate (FEOSOL) 325 (65 FE) MG Tablet One tablet every other day 60 Tab 11 9 04/22/20 22 Discontinued documented as of this encounter [...] Hypoxemia 10/08/2011 10/30/2015 Genetic Sleep Disorder Research Other*[id number] 07/25/2011 05/15/2016 Diverticulitis of colon 07/25/2011 01/06/20 [...] mRNA, LNP-s, No Pre serve, 2-Dose Series (Showpitch) 08/21/2021,12/22/2020,2020 COVID-19, LNP-s, No Preserve , [place]-sucrose, [...] Telephone Encounter - Marcela Pinto MD - 04/23/2022 1:58 PM EDT Noted. * Telephone Encounter - Mohinder Landry RN - 04/22/2022 1:37 PM EDT Called patient and informed her of Dr. Pinto's result message. She verbalized understanding of all information. Patient said she is taking the iron tablet once daily along with vitamin C. Medication list updated. Patient denies any abdominal pain. Patient said sometimes gets abdominal cramping but not pain. Patient said she had a headache yesterday and felt dizzy, but does not have that today. She said she has not got up yet today. FYI. * Telephone Encounter - Mohinder Landry RN - 04/22/2022 1:34 PM EDT ----- Message from Marcela Pinto MD sent at 04/19/2022 9:51 AM EDT ----- Recent labs shows low but stable hemoglobin, slightly low kidney functions. I am hoping that patient is taking still libo-yor-pppawbs iron pill 1 every other day. Please find out how she is doing clinically. If she has any ongoing abdominal pain we need to make sure she follow-up with GI as she hasa history of recurrent diverticulitis and she is not a surgical candidate. documented in this encounter Plan of Treatment Upcoming Encounters Date Type Specialty Care Team Description 06/25/2022 Office Visit Internal Medicine [facility]iseyda Barber MD 200 [facility] [address] 06/25/2022 Office Visit Cardiology Hammad Lopez DO [address] [facility] [place] [address] Health Maintenance Due Date Last Done Comments [...] COPD 12/18/2022 12/18/2021 CKD PHOS USE SMARTSET [id number] 02/19/2023 05, 03/09/2021, 03/22/2019 DIABETES-URINE ALBUMIN/CREATININE EVERY 12 MONTHS 02/19/2023 02/19/2022, 07/09/2019, 07/27/2018, Additional history exists DIABETES-EYE EXAM 03/08/2023 03/08/2022, , 08/07/2020, Additional history exists CKD HGB USE SMARTSET 59471 04/11/202304/11, 04/11/2022, 02/19/2022, Additional history exists Dexa [...] Documents on File Type Date Recorded Patient Dipper Fish Expl anation Advanced 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 Directive Advanced Directive Advanced Directive Care Teams Chemistry Intern Relationship Specialty Start Date End Date Marcela Pinto MD [address] [place] [address] PCP - General Internal Medicine 08/04/14 documented as of this encounter
--- OUTSIDE RECORDS SUMMARY | 2023-06-18 02:54 | External Medical Summary | Summary of Care ---
Author Name Unknown Organization [place] [address] Care Team Providers Care Remote Encoding Center Manager Name Role Phone Marcela Pinto MD Primary Care Provider + Reason for Visit * Reason Onset Date Comments Test Results 03/18/2022 Encounter Details Date Type Department Care Team Description 03/18/2022 Telephone General Internal Medicine [facility] [address] [facility] [place] [address] Marcela Pinto MD 200 [place] [address] Test Results Allergies Active Allergy Reactions Severity Noted Date Comments Valsartan 07/10/2010 Enalapril 05/21/2006 Escitalopram Oxalate Nausea/vomiting 10/11/2009 Nauseated Iodinated Diagnostic Agents Nausea/vomiting 05/2010 IV Contrast Iodine Hives 12/18/2009 IV Contrast Metoprolol Tartrate 11/18/2006 Made pulse low [place] Oil-Black Currant-Vit E 07/10/2010 Verapamil 03/21/2004 Bupropion [...] severity to be determined,COPD, moderate ([facility]) USE ONE NEBULIZER TREATMENT TWICE A DAY DIRECTED FOR WORSENING ASTHMA. J45.909, J44.9 225 mL 1 06/29/2019 Active Albuterol Sulfate (VENTOLIN HFA) 108 (90 Base) MCG/ACT AERS Inhale 2 Puffs by mouth 2 times a day. 0 12/27/2019 Active Lancets MISCIndications:Type 2 diabetes mellitus with hemoglobin A1c goal of less than 7.0% ([facility]) Use as directed. USE TO TEST [...] Respimat 1.25 MCG/ACT Inhalation Aerosol Solution (Tiotropium [place] Monohydrate) Inhale by mouth. 0 Active Furosemide [...] Hypoxemia 10/08/2011 10/30/2015 Genetic Sleep Disorder Research Other*[id number] 07/25/2011 05/15/2016 Diverticulitis of colon 07/25/2011 01/06/20 [...] mRNA, LNP-s, No Pre serve, 2-Dose Series (Amnis) 08/21/2021,12/22/2020,2020 Hepatitis B, 20+ yrs 10/01/2017,04/21/2017,03/20 Pneumococcal [...] encounter Miscellaneous Notes * Telephone Encounter - Sherwin Callejas V supervisor dumping - 03/19/2022 3:09 PM EDT Pt calling about script for ferrous sulfate. Warm transferred to [facility]. ThanksSherwin Pht [facility] Refill Call Center 03/19/2022,3:09 PM * [...] Visit Internal Medicine Briseyda Barber MD 200 [facility], [place] [id number] 06/25/2022 Office Visit Cardiology Hammad Lopez DO [address] [facility] [place] [address] Health Maintenance Due Date Last Done Comments Zoster Vaccines (2 of 3) 08/31/2012 07/06/2012 COVID-19 Vaccine (4 - Booster for Pfizer series) 11/21/2021 08/21/2021, 12/22/2020, 2020 Depression Screening, Annual for Pts 12 and Over 08/08/2022 08/08/2021 CKD GFR USE SMARTSET 83987 08/22/202202/19, 11/19/2021, 11/08/2021, Additional history exists DIABETES-HGBA1C EVERY 6 MONTHS 08/22/2022 02/19/2022, 08/23/2021, 03/09/2021, Additional history exists DIABETES-FOOT EXAM 11/19/2022 11/19/2021, 0 12/21/2020, 10/19/2019, Additional history exists O2 ASSESSMENT COMPLETED IN PAST YEAR FOR COPD 12/18/2022 12/18/2021 BASIC METABOLIC PANEL (BMP) FOR HTN YEARLY 02/19/2023 02/19/2022, 11/19/2021, 11/08/2021, Additional history exists CKD HGB USE SMARTSET 93252 02/19/202302/19, 02/19/2022, 10/25/2021, Additional history exists CKD PHOS USE SMARTSET 37505 02/19/2023 05, 03/09/2021, 03/22/2019 DIABETES-URINE ALBUMIN/CREATININE EVERY [...] Documents on File Type Date Recorded Patient Salt Lifter Expl anation Advanced 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 Directive Advanced Directive Advanced Directive Care Teams Remote Encoding Center Manager Relationship Specialty Start Date End Date Marcela Pinto MD [address] [place] [address] PCP - General Internal Medicine 08/04/14 documented as of this encounter
--- OUTSIDE RECORDS SUMMARY | 2023-06-18 02:54 | External Medical Summary | Summary of Care ---
Author Name Unknown Organization [place] [address] Care Team Providers Care Chief Console Operator Name Role Phone aMrcela Pinto MD Primary Care Provider + Reason for Visit * Reason Onset Date Comments Med Request 03/18/2022 Encounter Details Date Type Department Care Team Description 03/18/2022 Telephone General Internal Medicine [facility] 200 [facility] [place] [address] Marcela Pinto MD 200 [place] [address] Med Request Allergies Active Allergy Reactions Severity Noted Date Comments Valsartan 07/10/2010 Enalapril 05/21/2006 Escitalopram Oxalate Nausea/vomiting 10/11/2009 Nauseated Iodinated Diagnostic Agents Nausea/vomiting 05/2010 IV Contrast Iodine Hives 12/18/2009 IV Contrast Metoprolol Tartrate 11/18/2006 Made pulse low [place] Oil-Black Currant-Vit E 07/10/2010 Verapamil 03/21/2004 Bupropion Hcl 10/30/2009 Makes pt sick in the stomach documented as of this encounter (statuses as of 03/18/2022) Medications Medication Sig Dispensed Refills Start Date [...] Respimat 1.25 MCG/ACT Inhalation Aerosol Solution (Tiotropium [place] Monohydrate) Inhale by mouth. 0 Active Furosemide [...] as of this encounter (statuses as of 03/18/2022) Active Problems Problem Noted Date Type 2 [...] as of this encounter (statuses as of 03/18/2022) Resolved Problems Problem Noted Date Resolved Date [...] Hypoxemia 10/08/2011 10/30/2015 Genetic Sleep Disorder Research Other*[id number] 07/25/2011 05/15/2016 Diverticulitis of colon 07/25/2011 01/06/20 [...] as of this encounter (statuses as of 03/18/2022) Immunizations Name Administration Dates Next Due COVID-19 mRNA, LNP-s, No Pre serve, 2-Dose Series (Sw[employer]Station) 08/21/2021,12/22/2020,2020 Hepatitis B, 20+ yrs 10/01/2017,04/21/2017,03/20 Pneumococcal [...] encounter Miscellaneous Notes * Telephone Encounter - aMrcela Pinto MD - 03/18/2022 1:21 PM EDT Script sent. * Telephone Encounter - Nicole Saeed LPN - 03/18/2022 12:55 PM EDT Patient is calling. Got a new one touch machine. Asking for one touch verio strips to be sent. * Telephone Encounter - Nicole Saeed LPN - 03/18/2022 12:51 PM EDT Pending Prescriptions: Disp Refills OneTouch Verio In Vitro Strip (Glucose Bl*100 St*5 Sig: Checks blood sugar 3 times a day. E11.9 DX Last Visit: 02/19/2022 (in office), 08/08/2020 (telemedicine) Next Visit: 06/25/2022 Last date the medication was ordered: new order Patient Active Problem List Diagnosis Code Asthma [...] 7.5% ([facility]) E11.9 Elevated plasma metanephrines R79.89 Irritable bowel syndrome with constipation K58.1 HECTOR (generalized anxiety disorder) F41.1 COPD, group B, 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 ([facility]) J44.9 Morbid obesity with BMI of 40.0-44.9, adult ([facility]) E66.01, Z68.41 Gastro-esophageal reflux disease without esophagitis K21.9 Paroxysmal atrial fibrillation ([facility]) I48.0 Chronic systolic heart failure ([facility]) I50.22 Pulmonary HTN ([facility]) I27.20 Chronic hypoxemic respiratory failure ([facility]) J96.11 Chronic kidney disease, stage 3a ([facility]) N18.31 Subclinical hyperthyroidism E05.90 History of ESBL E. coli infection Z86.19 Type 2 diabetes mellitus with stage 3a chronic kidney disease, without long- term current use ofinsulin ([facility]) E11.22, N18.31 Labs: Lab Results Component Value Date/Time CREATININE - [facility] 0.8 02/19/2022 04:04 PM CREATININE - [facility] 1.0 05/27/2020 04:51 [...] Results Component Value Date/Time POTASSIUM - [facility] 5.4 (H) 02/19/2022 04:04 PM POTASSIUM - [facility] 4.0 05/27/2020 04:51 [...] Visit Internal Medicine Briseyda Barber MD [address] [place] [address] 06/25/2022 Office Visit Cardiology Hammad Lopez DO [address] [place] [address] Health Maintenance Due Date Last Done Comments Zoster Vaccines (2 of 3) 08/31/2012 07/06/2012 COVID-19 Vaccine (4 - Booster for Pfizer series) 11/21/2021 08/21/2021, 12/22/2020, 2020 Depression Screening, Annual for Pts 12 and Over 08/08/2022 08/08/2021 CKD GFR USE SMARTSET 77964 08/22/202202/19, 11/19/2021, 11/08/2021, Additional history exists DIABETES-HGBA1C EVERY 6 MONTHS 08/22/2022 02/19/2022, 08/23/2021, 03/09/2021, Additional history exists DIABETES-FOOT EXAM 11/19/2022 11/19/2021, 0 12/21/2020, 10/19/2019, Additional history exists O2 ASSESSMENT COMPLETED IN PAST YEAR FOR COPD 12/18/2022 12/18/2021 BASIC METABOLIC PANEL (BMP) FOR HTN YEARLY 02/19/2023 02/19/2022, 11/19/2021, 11/08/2021, Additional history exists CKD HGB USE SMARTSET 33467 02/19/202302/19, 02/19/2022, 10/25/2021, Additional history exists CKD PHOS USE SMARTSET 50179 02/19/2023 05, 03/09/2021, 03/22/2019 DIABETES-URINE ALBUMIN/CREATININE EVERY 12 MONTHS 02/19/2023 02/19/2022, 07/09/2019, 07/27/2018, Additional history exists DIABETES-EYE EXAM 03/08/2023 03/08/2022, , 08/07/2020, Additional history exists Dexa Scan 08/08/2025 08/08/2020, 07/2 , 06/19/2010, Additional history exists DTaP,Tdap,and Td Vaccines [...] Documents on File Type Date Recorded Patient Undergraduate Intern Expl anation Advanced 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 Directive Advanced Directive Advanced Directive Care Teams Chief Console Operator Relationship Specialty Start Date End Date Marcela Pinto MD [address] [place] [address] PCP - General Internal Medicine 08/04/14 documented as of this encounter
--- OUTSIDE RECORDS SUMMARY | 2023-06-18 02:54 | External Medical Summary | Summary of Care ---
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 Role Phone Marcela Pinto MD Primary Care Provider + Reason for Referral * Medication Prior Authorization - Closed Specialty Diagnoses / Procedures Referred By Miguel Angel roe Referred To Contact Diagnoses Diverticulitis of colon Marcela Pinto MD [address] [facility] [place] [address] Referral ID Status Reason Start Date Expiration Date Visits Re quested Visits Authorized Closed 1 1 * Medication Prior Authorization - Pending Review Specialty Diagnoses / Procedures Referred By Miguel Angel roe Referred To Contact Diagnoses Major depressive disorder with single episode, in partial remission (HCC) HECTOR (generalized anxiety disorder) Marcela Pinto MD [address] [place] [address] Referral ID Status Reason Start Date Expiration Date V isits Requested Visits Authorized Pending Review 1 1 Reason for Visit * Reason Comments Re-Check routine check up; Fatigue ongoing for at least a month Loss of Appetite Abdominal Pain left lower abdomen - started about 1 week ago after finishing antibiotic Encounter Details Date Type Department Care Team Description 02/19/2022 Office Visit General Internal Medicine [facility] [address] [place] [address] Marcela Pinto MD [address] [place] [id number] Type 2 diabetes mellitus with hemoglobin A1c goal of less than 7.5% ([facility])*; Risk and functional assessment; Stage 3a chronic kidney disease (HCC); Fatigue, unspecified type; Iron deficiency anemia, unspecified iron deficiency anemia type; Subclinical hyperthyroidism; Major depressive disorder with single episode, in partial remission (HCC); HECTOR (generalized anxiety disorder); Diverticulitis of colon Allergies Active Allergy Reactions Severity Noted Date Comments Valsartan 07/10/2010 Enalapril 05/21/2006 Escitalopram Oxalate Nausea/vomiting 10/11/2009 Nauseated Iodinated Diagnostic Agents Nausea/vomiting 05/2010 IV Contrast Iodine Hives 12/18/2009 IV Contrast Metoprolol Tartrate 11/18/2006 Made pulse low [place] Oil-Black Currant-Vit E 07/10/2010 Verapamil 03/21/2004 Bupropion Hcl 10/30/2009 Makes pt sick in the stomach documented as of this encounter (statuses as of 03/16/2022) Medications Medication Sig Dispensed Refills Start Date [...] day. . 2 Bottle 3 10/01/20 16 Active Multiple Vitamins-Minerals (ONE DAILY MULTIVITAMIN WOMEN) TABS one pill each day 0 04/21/20 17 Active [facility] SENNA 8.6 MG Tablet TAKE 2 TABLETS BY MOUTH EVERY EVENING FOR 10 DAYS NEEDED FOR CONSTIPATION 0 11/26/19 18 Active docusate sodium (COLACE) 100 MG Capsule Take 1 Cap by mouth daily. 90 Cap 0 03/31/20 19 Active ferrous sulfate (FEOSOL) 325 (65 FE) MG Tablet One tablet every other day 60 Tab 11 04/16/20 19 Active albuterol sulfate (PROVENTIL) (2.5 MG/3ML) 0.083% nebulizer solutionIndication s:Asthma with severity to be determined,COPD, moderate ([facility]) USE ONE NEBULIZER TREATMENT TWICE A DAY DIRECTED FOR WORSENING ASTHMA. J45.909, J44.9 225 mL 1 06/29/20 19 Active Albuterol Sulfate (VENTOLIN HFA) 108 (90 Base) MCG/ACT AERS Inhale 2 Puffs by mouth 2 times a day. 0 12/27/19 20 Active Lancets MISCIndications:Ty pe 2 diabetes mellitus with hemoglobin A1c goal of less than 7.0% ([facility]) Use as directed. USE TO TEST BLOOD SUGAR 3 TIMES A DAY FOR DIAGNOSIS CODE OF E11.9 300 Each 1 01/05/20 20 Active ondansetron ODT (ZOFRAN) 8 MG TBDP [...] by mouth daily. 0 02/06/20 21 Active Zafirlukast 20 MG Oral Tablet (Accolate)Indicati ons:Asthma with severity to be determined TAKE 1 TABLET BY MOUTH EVERY DAY 90 Tab 3 05/18/20 21 Active Zoster Vac Recomb Adjuvanted 50 MCG/0.5ML Intramuscular Suspension Reconstituted (Shingrix) Inject 0.5 mL into a large muscle now and repeat dose in 60 to 180 days 1 Each 1 08/09/20 21 Active Additional Information Patient not taking. Reported on 02/19/2022 Omeprazole 20 MG Oral Capsule Delayed Release (PriLOSEC)Indicati ons:Ischemic colitis (HCC) TAKE 1 CAPSULE BY MOUTH TWICE A DAY 180 Capsule 3 09/20/20 21 Active Klor-Con M20 20 MEQ Oral Tablet Extended Release (Potassium Chloride Annalisa ER)Indications:HTN , goal below 140/90 TAKE 1 TABLET BY MOUTH EVERY DAY 90 Tablet 3 09/28/20 21 Active Dicyclomine HCl 20 MG Oral Tablet (Bentyl)Indication s:Chronic constipation TAKE 1 TABLET BY MOUTH EVERY DAY 90 Tablet 2 10/04/20 21 Active Metoprolol Succinate ER 25 MG Oral Tablet Extended Release 24 Hour (toPROL XL)Indications:Chr onic 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 135 Tablet 3 10/04/20 21 Active Spiriva Respimat 1.25 MCG/ACT Inhalation Aerosol Solution (Tiotropium Line [place] Monohydrate) Inhale by mouth. 0 Active Furosemide 40 MG Oral Tablet (Lasix)Indications :Chronic systolic heart failure (HCC),Paroxysmal atrial fibrillation (HCC),Chronic 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),NICM (nonischemic cardiomyopathy) (HCC),Chronic atrial fibrillation (HCC),Hospital discharge follow-up,Presence of Watchman left atrial appendage closure device Take 1.5 Tablets by mouth 2 times a day. 270 Tablet 1 10/31/19 22 Active Lisinopril 2.5 MG Oral Tablet (Prinivil)Indicati ons:Paroxysmal atrial fibrillation (HCC),Chronic systolic heart failure (HCC) Take by mouth 1 Tablet in the morning. 90 Tablet 3 11/12/19 22 Active Ketoconazole 2 % External Cream APPLY TO GROIN AREA TWICE A DAY 60 g 11 12/27/19 22 Active Spironolactone 25 MG Oral Tablet (Aldactone) Take by mouth 0.5 Tablets once a day on Friday, Friday, and Friday only . 45 Tablet 3 12/29/19 22 Active Atorvastatin Calcium 40 MG Oral Tablet (Lipitor) Take by mouth 1 Tablet in the morning. 100 Tablet 3 12/28/19 22 Active methIMAzole 10 MG Oral Tablet (Tapazole)Indicati ons:Hyperthyroidis m TAKE 1 TABLET BY MOUTH EVERY DAY 90 Tablet 1 01/11/20 22 Active Ipratropium-[place] rol 20-100 MCG/ACT Inhalation Aerosol Solution (Combivent Respimat)Indicatio ns:Asthma with severity to be determined,COPD, moderate (HCC) TAKE 1 PUFF BY MOUTH 4 TIMES A DAY 12 g 1 02/01/20 22 Active Glimepiride 2 MG Oral Tablet (Amaryl) TAKE 1 TABLET BY MOUTH EVERY DAY WITH BREAKFAST 90 Tablet 1 02/08/20 Active Sertraline HCl 25 MG Oral Tablet (Zoloft)Indication s:Major depressive disorder with single episode, in partial remission (HCC),HECTOR (generalized anxiety disorder) Take by mouth 1 Tablet in the morning. 30 Tablet 5 02/20/20 22 Active Promethazine HCl 25 MG Oral Tablet (Phenergan)Indicat ions:Generalized osteoarthritis TAKE 1 TABLET BY MOUTH EVERY 6 HOURS NEEDED FOR NAUSEA 60 Tablet 2 01/12/20 22 022 Discontinued Ciprofloxacin HCl 500 MG Oral Tablet (Cipro)Indications :Acute diverticulitis Take by mouth 1 Tablet in the morning AND 1 Tablet before bedtime. 20 Tablet 0 01/12/20 22 022 Discontinued(Me dication List Clean Up) metroNIDAZOLE 500 MG Oral TabletIndications: Acute diverticulitis Take by mouth 1 Tablet in the morning AND 1 Tablet at noon AND 1 Tablet before bedtime. 30 Tablet 0 01/12/20 22 022 Discontinued(Me dication List Clean Up) HYDROcodone-Acetam inophen 5-325 MG Oral TabletIndications: Generalized osteoarthritis Take by mouth 1 Tablet every 6 hours as needed for Pain, Mild. 120 Tablet 0 02/06/20 22 022 Discontinued(Re fill) Ciprofloxacin HCl 500 MG Oral Tablet (Cipro)Indications :Diverticulitis of colon Take by mouth 1 Tablet in the morning AND 1 Tablet before bedtime. Do all this for 10 days. 20 Tablet 0 02/20/20 22 022 metroNIDAZOLE 500 MG Oral TabletIndications: Diverticulitis of colon Take by mouth 1 Tablet in the morning AND 1 Tablet at noon AND 1 Tablet before bedtime. Do all this for 10 days. 30 Tablet 0 02/20/20 22 022 documented as of this encounter (statuses as of 03/16/2022) Active Problems Problem Noted Date Type 2 [...] as of this encounter (statuses as of 03/16/2022) Resolved Problems Problem Noted Date Resolved Date [...] Hypoxemia 10/08/2011 10/30/2015 Genetic Sleep Disorder Research Other*[id number] 07/25/2011 05/15/2016 Diverticulitis of colon 07/25/2011 01/06/20 [...] as of this encounter (statuses as of 03/16/2022) Immunizations Name Administration Dates Next Due COVID-19 mRNA, LNP-s, No Pre serve, 2-Dose Series ([place]) 08/21/2021,12/22/2020,2020 Hepatitis B, 20+ yrs 10/01/2017,04/21/2017,03/20 Pneumococcal [...] Reading Time Taken Comments Blood Pressure 110/66 02/19/2022 3:20 PM EDT Pulse 84 02/19/2022 3:20 PM EDT Temperature 36.9 C (98.4 F) 02/19/2022 3:20 PM ED T Respiratory Rate 14 02/19/2022 3:20 PM EDT Oxygen Saturation - - Inhaled Oxygen Concentration - - Weight 111.1 kg (244 lb 14.4 oz) 02/19/2022 3:20 PM EDT Height - - Body Mass Index 40.75 11/19/2021 2:45 PM EST documented in this encounter Patient Instructions * Patient Instructions* Mohinder Landry RN - 02/19/2022 3:16 PM EDT Patient Instructions - Fall Prevention (This education is for all patients over 65 regardless of symptoms) Remember to take your current medications as prescribed. In order to prevent falls, you are encouraged to: Exercise Utilize assistive/adaptive devices Avoid multifocal lenses when walking Avoid hazards in home Maintain a regular toileting schedule Any questions please contact our office. Preventing Falls in the Home (This education is for all patients over 65 regardless of symptoms) As you get older, falls are more likely. Thats because your reaction time slows. Your muscles and joints may also get stiffer, making them less flexible. Illness, medications, and vision changes can also affect your balance. A fall could leave you unable to live on your own. To make your home safer, follow these tips: Floors Put nonskid pads under area rugs Remove throw rugs Replace worn floor coverings Tack carpets firmly to each step on carpeted stairs. Put nonskid strips on the edges of uncarpeted stairs Keep floors and stairs free of clutter and cords Arrange furniture so there are clear pathways Clean up any spills right away Bathrooms Install grab bars in the tub or shower Apply nonskid strips or put a nonskid rubber mat in the tub or shower Sit on a bath chair to bathe Use bathmats with nonskid backing Lighting Keep a flashlight in each room Put a nightlight along the pathway between the bedroom and the bathroom [employer] Patient Education Copyright 2008 - 2010 [employer] except where otherwise noted Preventing Falls: Exercises to Improve Balance, Flexibility, Strength, and Staying Power (This education is for all patients over 65 regardless of symptoms) Certain types of exercises may help make you less likely to fall. Try the ones below. Or do other exercises that your healthcare provider suggests. Depending on your health, you may need to start slowly. Dont let that stop you. Even small amounts of exercise can help you. Be sure to talk to yourhealthcare provider before starting any exercise program. Improve Balance Many types of exercise can help improve balance. Dre chi and yoga are good examples. Heres another one to try. You can do it anytime and almost anywhere. Stand next to a counter or solid support. Push yourself up onto your tiptoes. Hold for 5 seconds. If you start to lose your balance, hold on to the counter. Rest and repeat 5 times. Work up to holding for 20 to 30 seconds, if you can. Increase Flexibility Being more flexible makes it easier for you to move around safely. Try exercises like the seated hamstring stretch. Sit in a chair and put one foot on a stool. Straighten your leg and reach with both hands down either side of your leg. Reach as far down your leg as you can. Hold for about 20 seconds. Go back to the starting position. Then repeat 5 times. Switch legs. Build Strength Resistance exercises help build strength. You can do them without equipment. Or you can use weights, elastic bands, or special machines. One such exercise is called the biceps curl. You can hold a 1 pound weight or even a can of soup. Do this exercise at least 3 times a week. Strive for everyday. Sit up straight in a chair. Keep your elbow close to your body and your wrist straight. Bend your arm, moving your hand up to your shoulder. Then slowly lower your arm. Repeat 5 times. Switch to the other arm. Build Your Staying Power Aerobic exercises make your heart and lungs stronger so you can keep moving longer. Walking and swimming are two of the best types of exercises you can do. Using a stationary bike is great, too. Find an aerobic exercise that you enjoy. Start slowly and build up. Even 5 minutes is helpful. Aimfor a goal of 30 minutes, at least 3 times a week. You dont have to do 30 minutes in one session. Break it up and walk a little throughout the day. More Helpful Tips Start easy. Slowly work up to doing more. Talk with your healthcare provider about the best exercises for you. Call senior centers or health clubs about exercise programs. If needed, have a family member watch you walk every so often to check your stability. Exercise with a friend. Choose an activity you both enjoy. Try exercises that you can do anytime, anywhere. Here are two examples. Have someone with you when you first try these: Practice walking by placing one foot right in front of the other. Stand up and sit down 10 times. Repeat this throughout the day. [employer]eline Patient Education Copyright 2009 - 2010 [employer]oceline except where otherwise noted. Preventing Falls: Moving Safely Using a Cane or Walker (This education is for all patients over 65 regardless of symptoms) Keep the cane away from your feet so you dont trip. A walking aid, such as a cane or walker, can help you stay more independent and avoid falls. Remember to keep your walking aid within easy reach when youre in a chair or in bed. And learn how to use it safely so you dont injure yourself. Using a Cane If you have a stronger side, hold the cane on that side. 17. Get your balance. 18. Move the cane and your weaker leg forward. 19. Support your weight on both the cane and your weaker side. 20. Step with your stronger leg. 21. Start again from step 1. If youre using a folding walker, be sure you know how to lock it open. Check that its locked open before each use. Using a Walker 7. Roll the walker (or lift it, if youre using one without wheels) forward about 12 inches. 8. Step forward with your weaker leg first. 9. Use the walker to help keep your balance. 10. Bring your other foot forward to the center of the walker. 11. Start again from step 1. Helpful Tips Check with your healthcare provider about the right walking aid to use. Ask about a walker with a seat attached. Check the tips of your cane or walker to make sure they have nonskid covers. Move slowly from room to room. Dont boggs. Sit down to get dressed. Use a paco pack or backpack to keep your hands free. Get help for jobs that mean climbing, even on a stepstool. [employer]oceline Patient Education Copyright 2008 - 2010 [employer]oceline except where otherwise noted. Urinary Incontinence Plan of Care Documentation: (This education is for all patients over 65 regardless of symptoms) Current medications reconciled. Patient encouraged to: Practice kegal exercises Provide education materials Use the restroom every 2 hours throughout the day Limit caffeine, alcohol, spicy foods and acidic foods Keep a bladder diary Limit fluid intake 3-4 hours before bed Lose weight Prevent constipation Take fluid pills at a time when you can get to the bathroom quickly Control sugar better if diabetic Limit fluid intake to 60 oz. per day Wear support stockings (TEDs)if you have edema Mohinder Landry RN 02/19/2022 Kegel Exercises Kegel exercises dont require special clothing or equipment. Theyre easy to learn and simple to do. And if you do them right, no one can tell youre doing them, so they can be done almost anywhere. Your doctor, nurse, or physical therapist can answer any questions you have and help you get started. A Weak Pelvic Floor The pelvic floor muscles may weaken due to aging, and vaginal childbirth, injury, surgery, chronic cough, or lack of exercise. If the pelvic floor is weak, your bladder and other pelvic organs may sag out of place. The urethra may also open too easily and allow urine to leak out. Kegel exercises can help you strengthen your pelvic floor muscles so they can better support the pelvic organs and control urine flow. How Kegel Exercises Are Done Try each of the Kegel exercises described below. When youre doing them, try not to move your leg, buttock, or stomach muscles. While youre urinating, try to stop the flow of urine. Start and stop it as often as you can. Contract as if you were stopping your urine stream, but do it when youre not urinating. Tighten your rectum as if trying not to pass gas. Contract your anus, but dont move your buttocks. Helpful Hints Do your Kegels as often as you can. The more you do them, the faster youll feel the results. Pick an activity you do often as a reminder. For instance, do your Kegels every time you sit down. Tighten your pelvic floor before you sneeze, get up from a chair, cough, laugh, or lift. This protects your pelvic floor from injury and can help prevent urine leakage. Try to hold each Kegel for a slow count to five. You probably wont be able to hold them for thatlong at first, but keep practicing. It will get easier as your pelvic floor gets stronger. Eventually, special weights that you place in your vagina may be recommended to help make your Kegels even more effective. Joceline Patient Education Copyright 2009 - 2010 Joceline except where otherwise noted. Here are some helpful tips for your urinary incontinence: (This education is for all patients over 65 regardless of symptoms) Practice Kegel exercises Use the restroom every 2 hours throughout the day Limit caffeine, alcohol, spicy foods, and acidic foods Keep a bladder diary Limit fluid intake 3-4 hours before bed Lose weight Prevent constipation Take fluid pills at a time when can get to the bathroom quickly Control sugar better if diabetic Limit fluid intake to 60 oz. per day Any questions, please feel free to contact our office. documented in this encounter Progress Notes * Marcela Pinto MD - 02/19/2022 3:41 PM EDT HPI: Nina Harrington is a 81 year old female who presents with: Chief Complaint Patient presents with Re-Check routine check up; Fatigue ongoing for at least a month Loss of Appetite Abdominal Pain left lower abdomen - started about 1 week ago after finishing antibiotic Patient is here for the recheck. Chart reviewed with the patient including current meds, last labs and HM. Pt states she feels less appetite, feels tired. Takes iron pill every other day. Recent iron in 11/2021 was low. Advised daily iron pill and to get labs today. Today GI s/s are stable. Last took cipro and flagyl a week back. Had surgery consult in recent pastand was told not a candidate for surgery. Diet discussed, high fiber and hydration. Feels sad emotionally discussed oral pills and counsellor. Doesn't prefer seeing them. Pt follows with Dr. Magy alvarez for COPD, uses oxygen 2 lit during day and 4 lit at night. Pt sees Dr. Camargo every 4-6 months for hyperthyroidism and Type 2 DM. Rt shoulder and arm pain+ discussed PT. States high dose of statin gave her more s/s and dose was decreased. Tries to drink more water. Hemoglobin AIC Results: Lab Results Component Value Date/Time HEMOGLOBIN A1C - [facility] 6.8 (H) 08/23/2021 02:34 PM HEMOGLOBIN A1C - [facility] 7.2 (H) 03/09/2021 10:49 AM HEMOGLOBIN A1C - [facility] 6.6 (H) 08/26/2019 02:55 PM HEMOGLOBIN A1C - [facility] 6.8 (H) 07/27/2018 11:32 AM HEMOGLOBIN A1C - [facility] 6.2 01/14/2018 12:03 PM Patient Active Problem List Diagnosis Code Asthma [...] less than 7.5% ([facility]) E11.9 Elevated plasma metanephrines R79.89 Irritable bowel syndrome with constipation K58.1 HECTOR (generalized anxiety disorder) F41.1 COPD, group B, 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 ([facility]) J44.9 Morbid obesity with BMI of 40.0-44.9, adult ([facility]) E66.01, Z68.41 Gastro-esophageal reflux disease without esophagitis K21.9 Paroxysmal atrial fibrillation ([facility]) I48.0 Chronic systolic heart failure ([facility]) I50.22 Pulmonary HTN ([facility]) I27.20 Chronic hypoxemic respiratory failure ([facility]) J96.11 Chronic kidney disease, stage 3a ([facility]) N18.31 Subclinical hyperthyroidism E05.90 History of ESBL E. coli infection Z86.19 Type 2 diabetes mellitus with stage 3a chronic kidney disease, without long- term current use ofinsulin ([facility]) E11.22, N18.31 Current Outpatient Medications Medication Sig Dispense Refill [...] Cap by mouth daily. 90 Cap 0 ferrous sulfate (FEOSOL) 325 (65 FE) MG Tablet One tablet every other day 60 Tab 11 albuterol sulfate (PROVENTIL) (2.5 MG/3ML) 0.083% nebulizer [...] as needed for Nausea. dissolve on tongue. doxycycline 100 MG Tablet Take by mouth 100 mg 2 times a day . RESCUE KIT: Take for Colds. CareSens N Voice System Device Use as directed. Tests three times daily/E11.9 CareSens N Glucose Test In Vitro Strip (Glucose Blood) Test as directed. Tests three times daily Aspirin 81 MG Oral Tablet Delayed Release Take 81 mg by mouth daily. Zafirlukast 20 MG Oral Tablet (Accolate) TAKE 1 TABLET BY MOUTH EVERY DAY 90 Tab 3 Omeprazole 20 MG Oral Capsule Delayed Release (PriLOSEC) TAKE 1 CAPSULE BY MOUTH TWICE A DAY 180 Capsule 3 Klor-Con M20 20 MEQ Oral Tablet Extended Release (Potassium Chloride Annalisa ER) TAKE 1 TABLET BY MOUTH EVERY DAY 90 Tablet 3 Dicyclomine HCl 20 MG Oral Tablet (Bentyl) TAKE 1 TABLET BY MOUTH EVERY DAY 90 Tablet 2 Metoprolol Succinate ER 25 MG Oral Tablet Extended Release 24 Hour (toPROL XL) Take 1 tab in the morning and 1/2 tab in the evening. 135 Tablet 3 Spiriva Respimat 1.25 MCG/ACT Inhalation Aerosol Solution (Tiotropium Line [place] Monohydrate) Inhale by mouth. Furosemide 40 MG [...] BY MOUTH EVERY DAY 90 Tablet 1 Promethazine HCl 25 MG Oral Tablet (Phenergan) TAKE 1 TABLET BY MOUTH EVERY 6 HOURS NEEDED FOR NAUSEA 60 Tablet 2 Ipratropium-Albuterol 20-100 MCG/ACT Inhalation Aerosol Solution (Combivent Respimat) TAKE 1 PUFF BY MOUTH 4 TIMES A DAY 12 g 1 HYDROcodone-Acetaminophen 5-325 MG Oral Tablet Take by mouth 1 Tablet every 6 hours as needed for Pain, Mild. 120 Tablet 0 Glimepiride 2 MG Oral Tablet (Amaryl) TAKE 1 TABLET BY MOUTH EVERY DAY WITH BREAKFAST 90 Tablet1 Zoster Vac Recomb Adjuvanted 50 MCG/0.5ML Intramuscular Suspension Reconstituted (Shingrix) Inject 0.5 mL into a large muscle now and repeat dose in 60 to 180 days (Patient not taking: Reported on 02/19/2022 ) 1 Each 1 No current facility-administered medications [...] negative except as per hpi. OBJECTIVE: BP 110/66 (BP Site: Left Arm, BP Position: Sitting, BP Cuff Size: Regular) | Pulse 84 | Temp 36.9 C (98.4 F) (Tympanic) | Resp 14 | Wt 111.1 kg (244 lb 14.4 oz) | BMI 40.75 kg/m | BSA 2.26 m PHYSICAL EXAM: HEENT: PERRLA, EOMI, anicteric [...] stable No focal weakness ASSESSMENT AND PLAN: Type 2 diabetes mellitus with hemoglobin A1c goal of less than 7.5% ([facility]) (Primary) - ALBUMIN / CREATININE RATIO, URINE; Future; Expected date: 02/19/2022 - HEMOGLOBIN A1C; Future; Expected date: 02/19/2022 On Amaryl. Risk and functional assessment Kidney disease, chronic, stage III (GFR 30-59 ml/min) ([facility]) - PHOSPHORUS; Future; Expected date: 02/19/2022 Avoid Any Nsaids. Fatigue, unspecified type Multifactorial. Iron deficiency anemia, unspecified iron deficiency anemia type - FERRITIN; Future; Expected date: 02/19/2022 - IRON SCREEN, INCLUDING TIBC; Future; Expected date: 02/19/2022 - CBC WITH WBC DIFFERENTIAL; Future; Expected date: 02/19/2022 Subclinical hyperthyroidism - TSH WITH FREE T4 IF INDICATED; Future; Expected date: 02/19/2022 Recently the dose of Methimazole was decreased. Major depressive disorder with single episode, in partial remission (HCC) Start zoloft 25 mg po daily. HECTOR (generalized anxiety disorder) Start zoloft. Reassured. Refusing counselling. * Mohinder Landry RN - 02/19/2022 3:16 PM EDT Urinary Incontinence Plan of Care Documentation: (This education is for all patients over 65 regardless of symptoms) Current medications reconciled. Patient encouraged to: Practice kegal exercises Provide education materials Use the restroom every 2 hours throughout the day Limit caffeine, alcohol, spicy foods and acidic foods Keep a bladder diary Limit fluid intake 3-4 hours before bed Lose weight Prevent constipation Take fluid pills at a time when you can get to the bathroom quickly Control sugar better if diabetic Limit fluid intake to 60 oz. per day Wear support stockings (TEDs)if you have edema Mohinder Landry RN 02/19/2022 documented in this encounter Nursing Notes * Mohinder Landry RN - 02/19/2022 3:16 PM EDT Chief Complaint Patient presents with Re-Check routine check up; Fatigue ongoing for at least a month Loss of Appetite Abdominal Pain left lower abdomen - started about 1 week ago after finishing antibiotic documented in this encounter Miscellaneous Notes * Addendum Note - Marcela Pinto MD - 03/16/2022 7:02 PM EDT Addended by: MARCELA PINTO on: 03/16/2022 07:02 PM Modules accepted: Orders documented in this encounter Plan of Treatment Upcoming Encounters Date Type Specialty Care Team Description 06/25/2022 [facility] Visit [facility] [address] [facility] [address] 06/25/2022 Office Visit Cardiology Hammad Lopez, DO [address] [facility] [place] [address] Scheduled Orders Name Type Priority Associated Diagnoses Orde r Schedule CBC WITH WBC DIFFERENTIAL Lab Routine Fatigue, unspecified type Iron deficiency anemia, unspecified iron deficiency anemia type Expected: 03/16/2022, Expires: 03/16/2023 BASIC METABOLIC PANEL Lab Routine Fatigue, unspecified type Expected: 03/16/2022, Expires: 03/16/2023 FERRITIN Lab Routine Fatigue, unspecified type Iron deficiency anemia, unspecified iron deficiency anemia type Expected: 03/16/2022, Expires: 03/16/2023 HEMOCCULT SCREEN, POINT OF CARE (ENTER/EDIT) Point of Care Testing Routine Fatigue, unspecified type Iron deficiency anemia, unspecified iron deficiency anemia type Expected: 03/16/2022, Expires: 04/15/2023 Health Maintenance Due Date Last Done Comments Zoster Vaccines (2 of 3) 08/31/2012 07/06/2012 COVID-19 Vaccine (4 - Booster for Pfizer series) 11/21/2021 08/21/2021, 12/22/2020, 2020 Depression Screening, Annual for Pts 12 and Over 08/08/2022 08/08/2021 CKD GFR USE SMARTSET 81896 08/22/202202/19, 11/19/2021, 11/08/2021, Additional history exists DIABETES-HGBA1C EVERY 6 MONTHS 08/22/2022 02/19/2022, 08/23/2021, 03/09/2021, Additional history exists DIABETES-FOOT EXAM 11/19/2022 11/19/2021, 0 12/21/2020, 10/19/2019, Additional history exists O2 ASSESSMENT COMPLETED IN PAST YEAR FOR COPD 12/18/2022 12/18/2021 BASIC METABOLIC PANEL (BMP) FOR HTN YEARLY 02/19/2023 02/19/2022, 11/19/2021, 11/08/2021, Additional history exists CKD HGB USE SMARTSET 41816 02/19/202302/19, 02/19/2022, 10/25/2021, Additional history exists CKD PHOS USE SMARTSET 23212 02/19/2023 05/, 03/09/2021, 03/22/2019 DIABETES-URINE ALBUMIN/CREATININE EVERY [...] as of this encounter Results * (ABNORMAL) ALBUMIN / CREATININE RATIO, URINE (02/19/2022 4:09 PM EDT) Albumin, Random Urine 7.78 mg/dL [facility] Creatinine, Random Urine 69 mg/dL [facility] Albumin / Creatinine Ratio, Urine 113(H) <30 mg/g Creat [facility] Specimen Urine - Urine specimen obtai annette by clean catch procedure (specimen) Narrative [facility] - 02/20/2022 12:51 AM EDT Normal: <30 mg/g creatinine High: 30-300 mg/g creatinine Very High: >300 mg/g creatinine Nephrotic: >2200 mg/g creatinine [facility] [address] [place] [address] * (ABNORMAL) COMPREHENSIVE METABOLIC PANEL (02/19/2022 4:04 PM EDT) BUN 13 6 - 20 mg/dL [facility] Creatinine 0.8 0.5 - 1.0 mg/dL [facility] Estimated Glomerular Filtration Rate 74Comment:eGFR is calculated based on the CKD-EPI 2020 equation >=60 mL/min [facility] Sodium 137 135 - 146 mmol/L [facility] Potassium 5.4(H) 3.5 - 5.1 mmol/L [facility] Chloride 99 98 - 107 mmol/L [facility] CO2 31 22 - 32 mmol/L [facility] Anion Gap 7 7 - 15 mmol/L [facility] Glucose 131(H) 70 - 120 mg/dL [facility] Albumin 3.6(L) 3.8 - 5.0 g/dL [facility] AST 14 10 - 35 U/L [facility] Alkaline Phosphatase 103 35 - 130 U/L [facility] Bilirubin, Total 0.2 <=1.2 mg/dL [facility] Calcium 9.6 8.4 - 10.2 mg/dL [facility] Protein 6.5 6.0 - 8.3 g/dL [facility] ALT 11 10 - 35 U/L [facility] Specimen Blood - Venous blood specime n (specimen) Performing Organization Address [facility] de Phone Number [facility] [address] [place] [address] * TSH WITH FREE T4 IF INDICATED (02/19/2022 4:04 PM EDT) TSH 1.13 0.27 - 4.20 uIU/mL [facility] Specimen Blood - Venous blood specime n (specimen) Performing Organization Address [facility] de Phone Number [facility] [address] [place] [address] * (ABNORMAL) IRON SCREEN, INCLUDING TIBC (02/19/2022 4:04 PM EDT) Iron 29(L) 33 - 151 ug/dL [facility] Iron Binding Capacity 195(L) 250 - 425 ug/dL [facility] Transferrin Saturation Percent 15 15 - 55 % [facility] Specimen Blood - Venous blood specime n (specimen) Performing Organization Address [facility] de Phone Number [facility] [address] [place] [address] * FERRITIN (02/19/2022 4:04 PM EDT) Ferritin 132Comment:Postmenop aus al women have higher ferritin levels than pre-menopausal women. The above reference interval is based on pre-menopausal women. 13 - 150 ng/mL [facility] Specimen Blood - Venous blood specime n (specimen) Performing Organization Address [facility] de Phone Number [facility] [address] [place] [address] * (ABNORMAL) HEMOGLOBIN A1C (02/19/2022 4:04 PM EDT) Hemoglobin A1C 6.8(H)Comment:The use of HbA1c to monitor glycemic status is based on normal hemoglobin and HbA composition. This test should not be used in patients with abnormal hemoglobin that affects the half life of the red blood cell or the in vivo glycation rates. 4.0 - 5.6 % [facility] Estimated Average Glucose 148(H) <126 mg/dL [facility] Specimen Blood - Venous blood specime n (specimen) Performing Organization Address [facility] de Phone Number [facility] [address] [place] [address] * PHOSPHORUS (02/19/2022 4:04 PM EDT) Phosphorus 3.4 2.5 - 4.8 mg/dL [facility] Specimen Blood - Venous blood specime n (specimen) Performing Organization Address [facility] de Phone Number [facility] [address] [place] [address] documented in this encounter Visit Diagnoses Diagnosis Type 2 diabetes mellitus with hemoglobin A1c goal of less than 7.5% (HCC)- Primary Risk and functional assessment Screening for unspecified condition Stage 3a chronic kidney disease (HCC) Fatigue, unspecified type Iron deficiency anemia, unspecified iron deficiency anemia type Subclinical hyperthyroidism Thyrotoxicosis without mention of goiter or other cause, without mention of thyrotoxic crisis or storm Major depressive disorder with single episode, in partial remission (HCC) HECTOR (generalized anxiety disorder) Generalized anxiety disorder Diverticulitis of colon Diverticulitis of colon (without mention of hemorrhage) documented in this encounter Advance Directives Documents on File Type Date Recorded 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
--- OUTSIDE RECORDS SUMMARY | 2023-06-18 02:54 | External Medical Summary | Summary of Care ---
Author Name Unknown Organization [place] [address] Care Team Providers Care Top Case Assembler Name Role Phone Marcela Pinto MD Primary Care Provider + Encounter Details Date Type Department Care Team Description 03/14/2022 Orders Only Outcomes Research Department [address] [place] [address] Wily Zurita CHRA MyCode Research Other*[id number] Allergies Active Allergy Reactions Severity Noted Date Comments Valsartan 07/10/2010 Enalapril 05/21/2006 Escitalopram Oxalate Nausea/vomiting 10/11/2009 Nauseated Iodinated Diagnostic Agents Nausea/vomiting 05/2010 IV Contrast Iodine Hives 12/18/2009 IV Contrast Metoprolol Tartrate 11/18/2006 Made pulse low [place] Oil-Black Currant-Vit E 07/10/2010 Verapamil 03/21/2004 Bupropion Hcl 10/30/2009 Makes pt sick in the stomach documented as of this encounter (statuses as of 03/14/2022) Medications Medication Sig Dispensed Refills Start Date [...] severity to be determined,COPD, moderate ([facility]) USE ONE NEBULIZER TREATMENT TWICE [...] Respimat 1.25 MCG/ACT Inhalation Aerosol Solution (Tiotropium [place] Monohydrate) Inhale by mouth. 0 Active Furosemide [...] Pain, Mild. 120 Tablet 0 03/13/2022 Active documented as of this encounter (statuses as of 03/14/2022) Active Problems Problem Noted Date Type 2 [...] as of this encounter (statuses as of 03/14/2022) Resolved Problems Problem Noted Date Resolved Date [...] mellitus with stage [facility] 05/22[facility]2020 05/29/2021 Overview: Per CKD protocol Body [...] Hypoxemia 10/08/2011 10/30/2015 Genetic Sleep Disorder Research Other*[id number] 07/25/2011 05/15/2016 Diverticulitis of colon 07/25/2011 01/06/20 [...] as of this encounter (statuses as of 03/14/2022) Immunizations Name Administration Dates Next Due COVID-19 mRNA, LNP-s, No Pre serve, 2-Dose Series (PF Changs) 08/21/2021,12/22/2020,2020 Hepatitis B, 20+ yrs 10/01/2017,04/21/2017,03/20 Pneumococcal [...] Visit Internal Medicine Briseyda Barber MD [address] [facility] [address] 06/25/2022 Office Visit Cardiology Hammad Lopez DO [address] [facility] [place] [address] Scheduled Orders Name Type Priority Associated Diagnoses Orde r Schedule MYCODE SUBSEQUENT ADULT Lab Routine MyCode Research Other*[id number] Every 6 Months for 2 Occurrences starting 03/14/2022 until 04/03/2023 Health Maintenance Due Date Last Done Comments Zoster Vaccines (2 of 3) 08/31/2012 07/06/2012 COVID-19 Vaccine (4 - Booster for Pfizer series) 11/21/2021 08/21/2021, 12/22/2020, 2020 Depression Screening, Annual for Pts 12 and Over 08/08/2022 08/08/2021 CKD GFR USE SMARTSET 08749 08/22/202202/19, 11/19/2021, 11/08/2021, Additional history exists DIABETES-HGBA1C EVERY 6 MONTHS 08/22/2022 02/19/2022, 08/23/2021, 03/09/2021, Additional history exists DIABETES-FOOT EXAM 11/19/2022 11/19/2021, 0 12/21/2020, 10/19/2019, Additional history exists O2 ASSESSMENT COMPLETED IN PAST YEAR FOR COPD 12/18/2022 12/18/2021 BASIC METABOLIC PANEL (BMP) FOR HTN YEARLY 02/19/2023 02/19/2022, 11/19/2021, 11/08/2021, Additional history exists CKD HGB USE SMARTSET 95145 02/19/202302/19, 02/19/2022, 10/25/2021, Additional history exists CKD PHOS USE SMARTSET 24680 02/19/202302/10, 03/09/2021, 03/22/2019 DIABETES-URINE ALBUMIN/CREATININE EVERY 12 [...] this encounter Visit Diagnoses Diagnosis MyCode Research Other*[id number] documented in this encounter Advance Directives Documents on File Type Date Recorded 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
--- OUTSIDE RECORDS SUMMARY | 2023-06-18 02:54 | External Medical Summary | Summary of Care ---
Author Name Unknown Organization [place] [address] Care Team Providers Care Research Librarian Name Role Phone Alex Pinto MD Primary Care Provider + Reason for Visit * Reason Comments eRx-Medication Refill Encounter Details Date Type Department Care Team Description 02/27/2022 Refill General Internal Medicine [facility] [address] [facility] [place] [address] Alex Pinto MD [address] [facility] [place] [address] Chronic constipation; GENERAL OSTEOARTHROSIS Allergies Active Allergy Reactions Severity Noted Date Comments Valsartan 07/10/2010 Enalapril 05/21/2006 Escitalopram Oxalate Nausea/vomiting 10/11/2009 Nauseated Iodinated Diagnostic Agents Nausea/vomiting 05/2010 IV Contrast Iodine Hives 12/18/2009 IV Contrast Metoprolol Tartrate 11/18/2006 Made pulse low [place] Oil-Black Currant-Vit E 07/10/2010 Verapamil 03/21/2004 Bupropion Hcl 10/30/2009 Makes pt sick in the stomach documented as of this encounter (statuses as of 03/01/2022) Medications Medication Sig Dispensed Refills Start Date [...] severity to be determined,COPD, moderate ([facility]) USE ONE NEBULIZER TREATMENT TWICE A DAY DIRECTED FOR WORSENING ASTHMA. J45.909, J44.9 225 mL 1 9 Active Albuterol Sulfate (VENTOLIN HFA) 108 (90 Base) MCG/ACT AERS Inhale 2 Puffs by mouth 2 times a day. 0 0 Active Lancets MISCIndications:Ty pe 2 diabetes mellitus with hemoglobin A1c goal of less than 7.0% ([facility]) Use as directed. USE TO [...] EVERY DAY 90 Tablet 3 1 Active Dicyclomine HCl 20 MG Oral Tablet (Bentyl)Indication s:Chronic constipation TAKE 1 TABLET BY MOUTH EVERY DAY 90 Tablet 2 1 Active Metoprolol Succinate ER 25 MG Oral Tablet Extended Release 24 Hour (toPROL XL)Indications:Chr onic 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 135 Tablet 3 1 Active Spiriva Respimat 1.25 MCG/ACT Inhalation Aerosol Solution (Tiotropium [place] Monohydrate) Inhale by mouth. 0 Active Furosemide [...] A DAY 12 g 1 2 Active HYDROcodone-Acetam inophen 5-325 MG Oral [...] the morning. 30 Tablet 5 2 Active Ciprofloxacin HCl 500 MG Oral Tablet (Cipro)Indications :Diverticulitis of colon Take by mouth 1 Tablet in the morning AND 1 Tablet before bedtime. Do all this for 10 days. 20 Tablet 0 2 03/01/20 22 Active metroNIDAZOLE 500 MG Oral TabletIndications: Diverticulitis of colon Take by mouth 1 Tablet in the morning AND 1 Tablet at noon AND 1 Tablet before bedtime. Do all this for 10 days. 30 Tablet 0 2 03/01/20 22 Active Promethazine HCl 25 MG Oral Tablet (Phenergan)Indicat ions:Generalized osteoarthritis TAKE 1 TABLET BY MOUTH EVERY 6 HOURS NEEDED FOR NAUSEA 60 Tablet 2 2 Active Promethazine HCl 25 MG Oral Tablet (Phenergan)Indicat ions:Generalized osteoarthritis TAKE 1 TABLET BY MOUTH EVERY 6 HOURS NEEDED FOR NAUSEA 60 Tablet 2 2 03/01/20 22 Discontinued documented as of this encounter (statuses as of 03/01/2022) Active Problems Problem Noted Date Type 2 [...] as of this encounter (statuses as of 03/01/2022) Resolved Problems Problem Noted Date Resolved Date [...] Hypoxemia 10/08/2011 10/30/2015 Genetic Sleep Disorder Research Other*[id number] 07/25/2011 05/15/2016 Diverticulitis of colon 07/25/2011 01/06/20 [...] as of this encounter (statuses as of 03/01/2022) Immunizations Name Administration Dates Next Due COVID-19 mRNA, LNP-s, No Pre serve, 2-Dose Series (VBI Vaccines) 08/21/2021,12/22/2020,2020 Hepatitis B, 20+ yrs 10/01/2017,04/21/2017,03/20 Pneumococcal [...] Telephone Encounter - Alex Pinto MD - 03/01/2022 11:22 AM EDT Signed Prescriptions: Disp Refills Promethazine HCl 25 MG Oral Tablet (Phener*60 Tab*2 Sig: TAKE 1 TABLET BY MOUTH EVERY 6 HOURS NEEDED FOR NAUSEA Authorizing Provider: ALEX PINTO Refused Prescriptions: Disp Refills Dicyclomine HCl 20 MG Oral Tablet (Bentyl) 90 Tab*2 Sig: TAKE 1 TABLET BY MOUTH EVERY DAY Refused By: FRANK HEART Reason for Refusal: Too soon * [facility]01/[facility]22 7:57 AM EDT Pending Prescriptions: Disp Refills Promethazine HCl 25 MG Oral Tablet (Phener*60 Tab*2 Sig: TAKE 1 TABLET BY MOUTH EVERY 6 HOURS NEEDED FOR NAUSEA Refused Prescriptions: Disp Refills Dicyclomine HCl 20 MG Oral Tablet (Bentyl) 90 Tab*2 Sig: TAKE 1 TABLET BY MOUTH EVERY DAY Refused By: FRANK WOOTEN Reason for Refusal: Too soon < BR> * Telephone Encounter - Frank Wooten, [facility] - 03/01/2022 7:57 AM EDT Refill pharmacists currently not authorized to approve refills for this class of medication per refill protocol. Please approve if appropriate. Pending Prescriptions: Disp Refills Promethazine HCl 25 MG Oral Tablet (Phener*60 Tab*2 Sig: TAKE 1 TABLET BY MOUTH EVERY 6 HOURS NEEDED FOR NAUSEA Refused Prescriptions: Disp Refills Dicyclomine HCl 20 MG Oral Tablet (Bentyl) 90 Tab*2 Sig: TAKE 1 TABLET BY MOUTH EVERY DAY Refused By: FRANK WOOTEN Reason for Refusal: Too soon 02/19/2022 (in office), 08/08/2020 (telemedicine) 06/25/2022 If no future appointments scheduled, and last appointment is greater than a year ago, please schedule patient for a follow-up appointment Last date the medication was ordered: 01/11/2022 Pharmacy: [id number] [address] Is this request for a controlled substance? no Patient Phone Numbers Labs: Lab Results Component [...] AM HGBA1C 6.6 (H) 08/26/2019 02:55 PM Thank You, Frank Wooten, Pharm-D Clinical Pharmacist Telepharmacy 03/01/2022, 7:57 AM documented in this encounter Plan of Treatment Upcoming Encounters Date Type Specialty Care Team Description 06/25/2022 [facility] Visit [facility] [address] [facility]/25[facility]2022 Office Visit Cardiology Hammad Lopez, DO [address] [facility] [place] [address] Health Maintenance Due Date Last Done Comments Zoster Vaccines (2 of 3) 08/31/2012 07/06/2012 COVID-19 Vaccine (4 - Booster for Pfizer series) 11/21/2021 08/21/2021, 12/22/2020, 2020 DIABETES-EYE EXAM 03/26/2022 03/26/2021, , 08/10/2019, Additional history exists Depression Screening, Annual for Pts 12 and Over 08/08/2022 08/08/2021 CKD GFR USE SMARTSET 89540 08/22/202202/19, 11/19/2021, 11/08/2021, Additional history exists DIABETES-HGBA1C EVERY 6 MONTHS 08/22/2022 02/19/2022, 08/23/2021, 03/09/2021, Additional history exists DIABETES-FOOT EXAM 11/19/2022 11/19/2021, 0 12/21/2020, 10/19/2019, Additional history exists O2 ASSESSMENT COMPLETED IN PAST YEAR FOR COPD 12/18/2022 12/18/2021 BASIC METABOLIC PANEL (BMP) FOR HTN YEARLY 02/19/2023 02/19/2022, 11/19/2021, 11/08/2021, Additional history exists CKD HGB USE SMARTSET 97858 02/19/202302/19, 02/19/2022, 10/25/2021, Additional history exists CKD PHOS USE SMARTSET 96940 02/19/202302/10, 03/09/2021, 03/22/2019 DIABETES-URINE ALBUMIN/CREATININE EVERY 12 MONTHS 02/19/2023 02/19/2022, 07/09/2019, 07/27/2018, Additional history exists Dexa Scan 08/08/2025 08/08/2020, [...] Visit Diagnoses Diagnosis Chronic constipation Unspecified constipation GENERAL OSTEOARTHROSIS Generalized osteoarthrosis, unspecified site documented in this encounter Advance Directives Documents on File Type Date Recorded Patient Dynamic Balancer Expl anation Advanced 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 Directive Advanced Directive Advanced Directive Care Teams Research Librarian Relationship Specialty Start Date End Date Alex Pinto MD [address] [place] [address] PCP - General Internal Medicine 08/04/14 documented as of this encounter
--- OUTSIDE RECORDS SUMMARY | 2023-06-18 02:54 | External Medical Summary | Summary of Care ---
Author Name Unknown Organization [place] [address] Care Team Providers Care Payroll Tax Specialist Name Role Phone Marcela Pinto MD Primary Care Provider + Encounter Details Date Type Department Care Team Description 03/13/2022 Orders Only General Internal Medicine [facility] [address] [place] [address] Marcela Pinto MD [address] [place] [address] Allergies Active Allergy Reactions Severity Noted Date Comments Valsartan 07/10/2010 Enalapril 05/21/2006 Escitalopram Oxalate Nausea/vomiting 10/11/2009 Nauseated Iodinated Diagnostic Agents Nausea/vomiting 05/2010 IV Contrast Iodine Hives 12/18/2009 IV Contrast Metoprolol Tartrate 11/18/2006 Made pulse low [place] Oil-Black Currant-Vit E 07/10/2010 Verapamil 03/21/2004 Bupropion Hcl 10/30/2009 Makes pt sick in the stomach documented as of this encounter (statuses as of 03/13/2022) Medications Medication Sig Dispensed Refills Start Date [...] Asthma with severity to be determined,COPD, moderate ([facility]) USE ONE NEBULIZER TREATMENT TWICE A DAY DIRECTED FOR WORSENING ASTHMA. J45.909, J44.9 225 mL 1 06/29/2019 Active Albuterol Sulfate (VENTOLIN HFA) 108 (90 Base) MCG/ACT AERS Inhale 2 Puffs by mouth 2 times a day. 0 12/27/2019 Active Lancets MISCIndications:Type 2 diabetes mellitus with hemoglobin A1c goal of less than 7.0% ([facility]) Use as directed. USE TO [...] Respimat 1.25 MCG/ACT Inhalation Aerosol Solution (Tiotropium [place] Monohydrate) Inhale by mouth. 0 Active Furosemide [...] A DAY 12 g 1 01/31/2022 Active HYDROcodone-Acetamin ophen 5-325 MG Oral TabletIndications:Ge neralized osteoarthritis Take by mouth 1 Tablet every 6 hours as needed for Pain, Mild. 120 Tablet 0 02/05/2022 Active Glimepiride 2 MG Oral Tablet (Amaryl) [...] FOR NAUSEA 60 Tablet 2 03/01/2022 Active documented as of this encounter (statuses as of 03/13/2022) Active Problems Problem Noted Date Type 2 [...] as of this encounter (statuses as of 03/13/2022) Resolved Problems Problem Noted Date Resolved Date [...] Hypoxemia 10/08/2011 10/30/2015 Genetic Sleep Disorder Research Other*[id number] 07/25/2011 05/15/2016 Diverticulitis of colon 07/25/2011 01/06/20 [...] as of this encounter (statuses as of 03/13/2022) Immunizations Name Administration Dates Next Due COVID-19 mRNA, LNP-s, No Pre serve, 2-Dose Series ([employer]) 08/21/2021,12/22/2020,2020 Hepatitis B, 20+ yrs 10/01/2017,04/21/2017,03/20 Pneumococcal [...] Visit Internal Medicine Briseyda Barber MD [address] [facility] [place] [address] 06/25/2022 Office Visit Cardiology Hammad Lopez, DO [address] [place] [address] Health Maintenance Due Date Last Done Comments Zoster Vaccines (2 of 3) 08/31/2012 07/06/2012 COVID-19 Vaccine (4 - Booster for Pfizer series) 11/21/2021 08/21/2021, 12/22/2020, 2020 Depression Screening, Annual for Pts 12 and Over 08/08/2022 08/08/2021 CKD GFR USE SMARTSET 21073 08/22/202202/19, 11/19/2021, 11/08/2021, Additional history exists DIABETES-HGBA1C EVERY 6 MONTHS 08/22/2022 02/19/2022, 08/23/2021, 03/09/2021, Additional history exists DIABETES-FOOT EXAM 11/19/2022 11/19/2021, 0 12/21/2020, 10/19/2019, Additional history exists O2 ASSESSMENT COMPLETED IN PAST YEAR FOR COPD 12/18/2022 12/18/2021 BASIC METABOLIC PANEL (BMP) FOR HTN YEARLY 02/19/2023 02/19/2022, 11/19/2021, 11/08/2021, Additional history exists CKD HGB USE SMARTSET 70883 02/19/202302/19, 02/19/2022, 10/25/2021, Additional history exists CKD PHOS USE SMARTSET 72000 02/19/202302/10, 03/09/2021, 03/22/2019 DIABETES-URINE ALBUMIN/CREATININE EVERY 12 MONTHS 02/19/2023 02/19/2022, 07/09/2019, 07/27/2018, Additional history exists DIABETES-EYE EXAM 03/13/2023 03/08/2022, , 08/07/2020, Additional history exists Dexa [...] Associated Diagnosis Comments DIABETIC EYE EXAM Routine 03/08/2022 documented in this encounter Results * DIABETIC EYE EXAM (03/08/2022) Specimen Narrative OUTSIDE LAB (SEE SCANNED REPORT) documented in this encounter Advance Directives Documents on File Type Date Recorded Patient Skewer Up Expl anation Advanced 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 Directive Advanced Directive Advanced Directive Care Teams Payroll Tax Specialist Relationship Specialty Start Date End Date Marcela Pinto MD [address] [place] [address] PCP - General Internal Medicine 08/04/14 documented as of this encounter
--- OUTSIDE RECORDS SUMMARY | 2023-06-18 02:54 | External Medical Summary | Summary of Care ---
Author Name Unknown Organization [place] [address] Care Team Providers Care Collar Shaper Operator Name Role Phone Marcela Pinto MD Primary Care Provider + Reason for Visit * Reason Onset Date Comments Test Results 03/18/2022 Encounter Details Date Type Department Care Team Description 03/18/2022 Telephone General Internal Medicine [facility] [address] Marcela Pinto MD [address] [place] [address] Test Results Allergies Active Allergy Reactions Severity Noted Date Comments Valsartan 07/10/2010 Enalapril 05/21/2006 Escitalopram Oxalate Nausea/vomiting 10/11/2009 Nauseated Iodinated Diagnostic Agents Nausea/vomiting 05/2010 IV Contrast Iodine Hives 12/18/2009 IV Contrast Metoprolol Tartrate 11/18/2006 Made pulse low [place] Oil-Black Currant-Vit E 07/10/2010 Verapamil 03/21/2004 [...] Solution (Tiotropium [place] Monohydrate) Inhale by mouth. 0 Active Furosemide [...] Hypoxemia 10/08/2011 10/30/2015 Genetic Sleep Disorder Research Other*[id number] 07/25/2011 05/15/2016 Diverticulitis of colon 07/25/2011 01/06/20 [...] mRNA, LNP-s, No Pre serve, 2-Dose Series (VaxInnate) 08/21/2021,12/22/2020,2020 Hepatitis B, 20+ yrs 10/01/2017,04/21/2017,03/20 Pneumococcal [...] Internal Medicine Briseyda Barber MD [address] [place] [address] 06/25/2022 Office Visit Cardiology Hammad Lopez DO [address] [place] [address] Health Maintenance Due Date Last Done Comments Zoster Vaccines (2 of 3) 08/31/2012 07/06/2012 COVID-19 Vaccine (4 - Booster for Pfizer series) 11/21/2021 08/21/2021, 12/22/2020, 2020 Depression Screening, Annual for Pts 12 and Over 08/08/2022 08/08/2021 CKD GFR USE SMARTSET 00385 08/22/202202/19, 11/19/2021, 11/08/2021, Additional history exists DIABETES-HGBA1C EVERY 6 MONTHS 08/22/2022 02/19/2022, 08/23/2021, 03/09/2021, Additional history exists DIABETES-FOOT EXAM 11/19/2022 11/19/2021, 0 12/21/2020, 10/19/2019, Additional history exists O2 ASSESSMENT COMPLETED IN PAST YEAR FOR COPD 12/18/2022 12/18/2021 BASIC METABOLIC PANEL (BMP) FOR HTN YEARLY 02/19/2023 02/19/2022, 11/19/2021, 11/08/2021, Additional history exists CKD HGB USE SMARTSET 68702 02/19/202302/19, 02/19/2022, 10/25/2021, Additional history exists CKD PHOS USE SMARTSET 43983 02/19/2023 05, 03/09/2021, 03/22/2019 DIABETES-URINE ALBUMIN/CREATININE EVERY [...] Documents on File Type Date Recorded Patient Medical Billing Instructor Expl 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 Directive Advanced Directive Advanced Directive Care Teams Collar Shaper Operator Relationship Specialty Start Date End Date Marcela Pinto MD [address] [place] [address] PCP - General Internal Medicine 08/04/14 documented as of this encounter
--- OUTSIDE RECORDS SUMMARY | 2023-06-18 02:54 | External Medical Summary | Summary of Care ---
Author Name Unknown Organization [place] [address] Care Team Providers Care Pulley Maintainer Name Role Phone Marcela Pinto MD Primary Care Provider + Encounter Details Date Type Department Care Team Description 03/13/2022 Scan Encounter General Internal Medicine [facility] 200 [facility] [place] [address] Marcela Pinto MD 200 [facility] [place] [address] <No scans attached> Allergies Active Allergy Reactions Severity Noted Date Comments Valsartan 07/10/2010 Enalapril 05/21/2006 Escitalopram Oxalate Nausea/vomiting 10/11/2009 Nauseated Iodinated Diagnostic Agents Nausea/vomiting 05/2010 IV Contrast Iodine Hives 12/18/2009 IV Contrast Metoprolol Tartrate 11/18/2006 Made pulse low [place] Oil-Black Currant-Vit E 07/10/2010 Verapamil 03/21/2004 Bupropion [...] Respimat 1.25 MCG/ACT Inhalation Aerosol Solution (Tiotropium [place] Monohydrate) Inhale by mouth. 0 Active Furosemide [...] Hypoxemia 10/08/2011 10/30/2015 Genetic Sleep Disorder Research Other*[id number] 07/25/2011 05/15/2016 Diverticulitis of colon 07/25/2011 01/06/20 [...] mRNA, LNP-s, No Pre serve, 2-Dose Series ([employer]) 08/21/2021,12/22/2020,2020 Hepatitis B, 20+ yrs 10/01/2017,04/21/2017,03/20 Pneumococcal [...] Internal Medicine Briseyda Barber MD [address] [facility], [place] [id number] 06/25/2022 Office Visit Cardiology Hammad Lopez, DO [address] [facility] [place] [address] Health Maintenance Due Date Last Done Comments Zoster Vaccines (2 of 3) 08/31/2012 07/06/2012 COVID-19 Vaccine (4 - Booster for Pfizer series) 11/21/2021 08/21/2021, 12/22/2020, 2020 Depression Screening, Annual for Pts 12 and Over 08/08/2022 08/08/2021 CKD GFR USE SMARTSET 77928 08/22/202202/19, 11/19/2021, 11/08/2021, Additional history exists DIABETES-HGBA1C EVERY 6 MONTHS 08/22/2022 02/19/2022, 08/23/2021, 03/09/2021, Additional history exists DIABETES-FOOT EXAM 11/19/2022 11/19/2021, 0 12/21/2020, 10/19/2019, Additional history exists O2 ASSESSMENT COMPLETED IN PAST YEAR FOR COPD 12/18/2022 12/18/2021 BASIC METABOLIC PANEL (BMP) FOR HTN YEARLY 02/19/2023 02/19/2022, 11/19/2021, 11/08/2021, Additional history exists CKD HGB USE SMARTSET 17568 02/19/202302/19, 02/19/2022, 10/25/2021, Additional history exists CKD PHOS USE SMARTSET 23817 02/19/202302/10, 03/09/2021, 03/22/2019 DIABETES-URINE ALBUMIN/CREATININE EVERY 12 [...] Documents on File Type Date Recorded 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
--- OUTSIDE RECORDS SUMMARY | 2023-06-18 02:54 | External Medical Summary | Summary of Care ---
Author Name Unknown Organization [place] [address] Care Team Providers Care Unemployment Insurance Director Name Role Phone Alex Pinto MD Primary Care Provider + Reason for Visit * Reason Onset Date Comments Medication Refill 03/13/2022 Encounter Details Date Type Department Care Team Description 03/13/2022 Refill General Internal Medicine 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 135 Tablet 3 1 Active Spiriva Respimat 1.25 MCG/ACT Inhalation Aerosol Solution (Tiotropium [place] Monohydrate) Inhale by mouth. 0 Active Furosemide [...] for Pain, Mild. 120 Tablet 0 2 03/13/20 22 Discontinu ed(Refill) documented as of this [...] Hypoxemia 10/08/2011 10/30/2015 Genetic Sleep Disorder Research Other*[id number] 07/25/2011 05/15/2016 Diverticulitis of colon 07/25/2011 01/06/20 [...] mRNA, LNP-s, No Pre serve, 2-Dose Series (Korbitec) 08/21/2021,12/22/2020,2020 Hepatitis B, 20+ yrs 10/01/2017,04/21/2017,03/20 Pneumococcal [...] Telephone Encounter - Alex Pinto MD - 03/13/2022 1:43 PM EDT Signed Prescriptions: Disp Refills HYDROcodone-Acetaminophen 5-325 MG Oral Ta*120 Ta*0 Sig: Take bymouth 1 Tablet every 6 hours as needed for Pain, Mild.Authorizing Provider: ALEX PINTO--- * Telephone Encounter - Alex Pinto MD - 03/13/2022 1:43 PM EDT I have reviewed the patients controlled substance dispensing history in the Prescription Drug Monitoring Program in compliance with the [facility] regulations before prescribing a controlled substance. Last Tox Screen Results: Results for orders [...] results can be found in Results Review. * Telephone Encounter - Angelina Linder LPN - 03/13/2022 8:07 AM EDT Pending Prescriptions: Disp Refills HYDROcodone-Acetaminophen 5-325 MG Oral T*120 Ta*0 Sig: Take by mouth 1 Tablet every 6 hours as needed for Pain, Mild. Last Visit: 02/19/2022 (in office), 08/08/2020 (telemedicine) Next Visit: 06/25/2022 Last date the medication was ordered: 02/05/22 Patient Active Problem List Diagnosis Code Asthma [...] than 7.5% ([facility]) E11.9 Elevated plasma metanephrines R79.89 Irritable bowel syndrome with constipation K58.1 HECTOR (generalized anxiety disorder) F41.1 COPD, group B, 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 ([facility]) J44.9 Morbid obesity with BMI of 40.0-44.9, adult ([facility]) E66.01, Z68.41 Gastro-esophageal reflux disease without esophagitis K21.9 Paroxysmal atrial fibrillation ([facility]) I48.0 Chronic systolic heart failure ([facility]) I50.22 Pulmonary HTN ([facility]) I27.20 Chronic hypoxemic respiratory failure ([facility]) J96.11 Chronic kidney disease, stage 3a ([facility]) N18.31 Subclinical hyperthyroidism E05.90 History of ESBL E. coli infection Z86.19 Type 2 diabetes mellitus with stage 3a chronic kidney disease, without long- term current use ofinsulin ([facility]) E11.22, N18.31 Labs: Lab Results Component Value [...] Visit Internal Medicine Briseyda Barber MD [address] [facility] [place] [address] 06/25/2022 Office Visit Cardiology Hammad Lopez, DO [address] [facility] [place] [address] Health Maintenance Due Date Last Done Comments Zoster Vaccines (2 of 3) 08/31/2012 07/06/2012 COVID-19 Vaccine (4 - Booster for Pfizer series) 11/21/2021 08/21/2021, 12/22/2020, 2020 Depression Screening, Annual for Pts 12 and Over 08/08/2022 08/08/2021 CKD GFR USE SMARTSET 65661 08/22/202202/19, 11/19/2021, 11/08/2021, Additional history exists DIABETES-HGBA1C EVERY 6 MONTHS 08/22/2022 02/19/2022, 08/23/2021, 03/09/2021, Additional history exists DIABETES-FOOT EXAM 11/19/2022 11/19/2021, 0 12/21/2020, 10/19/2019, Additional history exists O2 ASSESSMENT COMPLETED IN PAST YEAR FOR COPD 12/18/2022 12/18/2021 BASIC METABOLIC PANEL (BMP) FOR HTN YEARLY 02/19/2023 02/19/2022, 11/19/2021, 11/08/2021, Additional history exists CKD HGB USE SMARTSET 99038 02/19/202302/19, 02/19/2022, 10/25/2021, Additional history exists CKD PHOS USE SMARTSET 64819 02/19/2023 05/, 03/09/2021, 03/22/2019 DIABETES-URINE ALBUMIN/CREATININE EVERY [...] Documents on File Type Date Recorded Patient Phone Engineer Expl 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 Directive Advanced Directive Advanced Directive Care Teams Unemployment Insurance Director Relationship Specialty Start Date End Date Alex Pinto MD [address] [place] [address] PCP - General Internal Medicine 08/04/14 documented as of this encounter
--- OUTSIDE RECORDS SUMMARY | 2023-06-18 02:55 | External Medical Summary ---
Author Name Unknown Address Unknown Organization K01:[facility] - [address] [place] [facility] [place] [address] Laboratory Report Ordering Provider Test Date Status JOSE A JOHNSON 02/19/2022 16:04:56 Final Observation Date Value Abnormality Reference (Units ) Status SYNC LEUKOCYTES IN BLOOD BY AUTOMATED COUNT 02/19/2022 16:04:56 12.18 Above high normal 4.00-10.80 (K/uL) Final Segs 02/19/2022 16:04:56 68.8 40.0-75.0 (%) Final Lymphs % 02/19/2022 16:04:56 17.2 Below low normal 18.0-42.0 (%) Final Monos 02/19/2022 16:04:56 9.7 1.0-11.0 (%) Final Eosinophils 02/19/2022 16:04:56 2.1 0.0-6.0 (%) Final Basos 02/19/2022 16:04:56 0.6 0.0-2.0 (%) Final Immature Granulocyte, Percent 02/19/2022 16:04:56 1.6 0.0-2.0 (%) Final Absolute Segs 02/19/2022 16:04:56 8.37 Above high normal 1.80-7.70 (K/uL) Final Lymphs, absolute 02/19/2022 16:04:56 2.10 1.00-4.80 (K/ul) Final Monos, Abs 02/19/2022 16:04:56 1.18 Above high normal 0.00-1.10 (K/uL) Final Eos, Abs 02/19/2022 16:04:56 0.26 0.00-0.70 (K/uL) Final Basos, Abs 02/19/2022 16:04:56 0.07 0.00-0.20 (K/uL) Final Immature Granulocytes, Number 02/19/2022 16:04:56 0.20 0.00-0.20 (K/uL) Final Performing Location [facility] - [facility] [address] [facility] [address]
--- OUTSIDE RECORDS SUMMARY | 2023-06-18 02:55 | External Medical Summary ---
Author Name Unknown Address Unknown Organization K01:[facility] [place] [address] [place] [address] Laboratory Report Ordering Provider Test Date Status JOSE A JOHNSON 02/19/2022 16:04:56 Final Observation Date Value Abnormality Reference (Units ) Status TSH 02/19/2022 16:04:56 1.13 0.27-4.20 (uIU/mL) Final Performing Location LABORATORY [facility] - [address] [place] [address]
--- OUTSIDE RECORDS SUMMARY | 2023-06-18 02:55 | External Medical Summary | Summary of Care ---
Author Name Unknown Organization [place] [address] Care Team Providers Care Pen And Pencil Repairer Name Role Phone Marcela Pinto MD Primary Care Provider + Reason for Visit * Reason Onset Date Comments Med Request 02/05/2022 Encounter Details Date Type Department Care Team Description 02/05/2022 Telephone General Internal Medicine [facility] [address] [facility] [place] [id number] [facility] [address] Med Request Allergies Active Allergy Reactions Severity Noted Date Comments Valsartan 07/10/2010 Enalapril 05/21/2006 Escitalopram Oxalate Nausea/vomiting 10/11/2009 Nauseated Iodinated Diagnostic Agents Nausea/vomiting 05/2010 IV Contrast Iodine Hives 12/18/2009 IV Contrast Metoprolol Tartrate 11/18/2006 Made pulse low [place] Oil-Black Currant-Vit E 07/10/2010 Verapamil 03/21/2004 Bupropion Hcl 10/30/2009 Makes pt sick in the stomach documented as of this encounter (statuses as of 02/06/2022) Medications Medication Sig Dispensed Refills Start Date [...] Asthma with severity to be determined,COPD, moderate ([facility]) USE ONE NEBULIZER TREATMENT TWICE A DAY DIRECTED FOR WORSENING ASTHMA. J45.909, J44.9 225 mL 1 06/29/2019 Active Albuterol Sulfate (VENTOLIN HFA) 108 (90 Base) MCG/ACT AERS Inhale 2 Puffs by mouth 2 times a day. 0 12/27/2019 Active Lancets MISCIndications:Type 2 diabetes mellitus with hemoglobin A1c goal of less than 7.0% ([facility]) Use as directed. USE TO [...] 180 days 1 Each 1 08/09/2021 Active Omeprazole 20 MG Oral Capsule Delayed [...] the evening. 135 Tablet 3 10/04/2021 Active Glimepiride 2 MG Oral Tablet (Amaryl) TAKE 1 TABLET BY MOUTH EVERY DAY WITH BREAKFAST 90 Tablet 1 10/26/2021 Active Spiriva Respimat 1.25 MCG/ACT Inhalation Aerosol Solution (Tiotropium [place] Monohydrate) Inhale by mouth. 0 Active [...] EVERY DAY 90 Tablet 1 01/10/2022 Active Promethazine HCl 25 MG Oral Tablet (Phenergan)Indicatio ns:Generalized osteoarthritis TAKE 1 TABLET BY MOUTH EVERY 6 HOURS NEEDED FOR NAUSEA 60 Tablet 2 01/11/2022 Active Ciprofloxacin HCl 500 MG Oral Tablet (Cipro)Indications:A cute diverticulitis Take by mouth 1 Tablet in the morning AND 1 Tablet before bedtime. 20 Tablet 0 01/11/2022 Active metroNIDAZOLE 500 MG Oral TabletIndications:Ac edis diverticulitis Take by mouth 1 Tablet in the morning AND 1 Tablet at noon AND 1 Tablet before bedtime. 30 Tablet 0 01/11/2022 Active Ipratropium-Albutero l 20-100 MCG/ACT Inhalation Aerosol Solution (Combivent Respimat)Indications :Asthma with severity to be determined,COPD, moderate ([facility]) TAKE 1 PUFF BY MOUTH 4 TIMES A DAY 12 g 1 01/31/2022 Active HYDROcodone-Acetamin ophen 5-325 MG Oral TabletIndications:Ge neralized osteoarthritis Take by mouth 1 Tablet every 6 hours as needed for Pain, Mild. 120 Tablet 0 02/05/2022 Active documented as of this encounter (statuses as of 02/06/2022) Active Problems Problem Noted Date Type 2 [...] as of this encounter (statuses as of 02/06/2022) Resolved Problems Problem Noted Date Resolved Date [...] Hypoxemia 10/08/2011 10/30/2015 Genetic Sleep Disorder Research Other*[id number] 07/25/2011 05/15/2016 Diverticulitis of colon 07/25/2011 01/06/20 [...] Per Lipid Taxonomy. HTN, GOAL BELOW 140/90 08/18/200911/08/201 0 Overview: Modified per HTN Taxonomy. Type [...] as of this encounter (statuses as of 02/06/2022) Immunizations Name Administration Dates Next Due COVID-19 mRNA, LNP-s, No Pre serve, 2-Dose Series ([place]) 08/21/2021,12/22/2020,2020 Hepatitis B, 20+ yrs 10/01/2017,04/21/2017,03/20 Pneumococcal [...] Telephone Encounter - Marcela Pinto MD - 02/06/2022 6:05 PM EDT As I had issue with accessing Epic from home, I called in cipro and flagyl for 10 days for this patient. * Telephone Encounter - Mohinder Landry RN - 02/06/2022 3:05 PM EDT Spoke with Dr. Pinto and informed her of Nicole's previous message. Dr. Pinto said she is going to call in prescriptions for the patient to [facility] pharmacy. Called patient and informed her of Dr. Pinto's message. She verbalized understanding. * Telephone Encounter - Mohinder Landry RN - 02/06/2022 2:16 PM EDT Just spoke with patient. Patient said she spoke with her daughter, and her daughter told her she did get the prescriptions sent on 01/11/2022. Patient is requesting both medications to be sent to thepharmacy. Patient did state her side is really hurting her. Please also see Angelina's previous message. * Telephone Encounter - Nicole Saeed LPN - 02/06/2022 2:06 PM EDT Patient is calling. Her daughter said they did pick it up on the and she took it. She said sheis sick and needs the flagyl and the cipro. It is for the pain in her side and her stomach. Said the nausea medicine is not helping. * Telephone Encounter - Mohinder Landry RN - 02/06/2022 11:48 AM EDT Please see previous message. Please also see telephone encounter from 01/31/2022 for more information. Patient said she never picked up the prescriptions for Cipro and Flagyl that were sent on 01/11/2022. Patient said she will check at the pharmacy and will call us back if anything further is needed. FYI. * Telephone Encounter - Angelina Linder LPN - 02/05/2022 2:55 PM EDT Patient calling in to request Cipro and Flagyl. She was prescribed them on 12/18 for Diverticulitis. It did improve, but she ate a piece of coconut cake on 02/03 and the pain has return. Lower left abdominal pain-- hurts even when she walks. Loose stools, mucousy. Denies fever or chills. Denies blood in stool. Denies nausea or vomiting. Patient prefers meds be sent in, declines in appt at this time. documented in this encounter Plan of Treatment Upcoming Encounters Date Type Specialty Care Team Description 02/19/2022 Office Visit Internal Medicine Marcela Pinto MD [address] [place] [address] 06/25/2022 Office Visit Cardiology Hammad Lopez DO [address] [place] [address] Health Maintenance Due Date Last Done Comments Zoster Vaccines (2 of 3) 08/31/2012 07/06/2012 DIABETES-URINE ALBUMIN/CREATININE EVERY 12 MONTHS 07/09/2020 07/09/2019, 07/27/2018, 05/19/2017, Additional history exists COVID-19 Vaccine (4 - Booster for Pfizer series) 01/19/2022 08/21/2021, 12/22/2020, 2020 DIABETES-HGBA1C EVERY 6 MONTHS 02/20/2022 08/23/2021, 03/09/2021, 12/05/2020, Additional history exists CKD PHOS USE SMARTSET 29767 03/09/2022 03/09/2021, 0 03/22/2019 DIABETES-EYE EXAM 03/26/2022 03/26/2021, , 08/10/2019, Additional history exists CKD GFR USE SMARTSET 54933 05/19/202211/19, 11/08/2021, 10/25/2021, Additional history exists Depression Screening, Annual for Pts 12 and Over 08/08/2022 08/08/2021 CKD HGB USE SMARTSET 26551 10/25/202210/25, 08/28/2021, 08/28/2021, Additional history exists BASIC METABOLIC PANEL (BMP) FOR HTN YEARLY 11/19/2022 11/19/2021, 11/08/2021, 10/25/2021, Additional history exists DIABETES-FOOT EXAM 11/19/2022 11/19/2021, 0 12/21/2020, 10/19/2019, Additional history exists O2 ASSESSMENT COMPLETED IN PAST YEAR FOR COPD 12/18/2022 12/18/2021 Dexa Scan 08/08/2025 08/08/2020, 04/13, 06/19/2010, Additional [...] Documents on File Type Date Recorded Patient Sagger Preparer Expl anation Advanced 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 Directive Advanced Directive Advanced Directive Care Teams Pen And Pencil Repairer Relationship Specialty Start Date End Date Marcela Pinto MD [address] [place] [address] PCP - General Internal Medicine 08/04/14 documented as of this encounter
--- OUTSIDE RECORDS SUMMARY | 2023-06-18 02:55 | External Medical Summary ---
Author Name Unknown Address Unknown Organization K01:LABORATORY [facility] [place] - [address] [place] [address] Laboratory Report Ordering Provider Test Date Status MADAI MIRANDA 02/19/2022 16:04:56 Elisa l Observation Date Value Abnormality Reference (Units ) Status MYCODE SPECIMEN-LAV 02/19/2022 16:04:56 Freezing of extracted DNA, whole blood and/or serum. Final Performing Location [facility] - [address] [place] [address]
--- OUTSIDE RECORDS SUMMARY | 2023-06-18 02:55 | External Medical Summary ---
Author Name Unknown Address Unknown Organization [id number]:LABORATORY [facility] [place] - [address] [place] [address] Laboratory Report Ordering Provider Test Date Status MADAI MIRANDA 02/19/2022 16:04:56 Elisa l Observation Date Value Abnormality Reference (Units ) Status MYCODE SPECIMEN-SST 02/19/2022 16:04:56 Freezing of extracted DNA, whole blood and/or serum. Final Performing Location [facility] - [address] [place] [address]
--- OUTSIDE RECORDS SUMMARY | 2023-06-18 02:55 | External Medical Summary ---
Author Name Unknown Address Unknown Organization [id number]:LABORATORY [facility] [place] - [address] [place] [address] Laboratory Report Ordering Provider Test Date Status JOSE A JOHNSON 02/19/2022 16:09:59 Final Observation Date Value Abnormality Reference (Units ) Status Albumin, Urine 02/19/2022 16:09:59 7.78 (mg/dL) Final Creatinine, Urine 02/19/2022 16:09:59 69 (mg/dL) Final Albumin/Creatinine [Mass Ratio] in Urine 02/19/2022 16:09:59 113 Above high normal <30 (mg/g Creat) Final Performing Location LABORATORY [facility] [place] - [address] [place] [address]
--- OUTSIDE RECORDS SUMMARY | 2023-06-18 02:55 | External Medical Summary ---
Author Name Unknown Address Unknown Organization K01:[place] [place] [address] [place] [address] Laboratory Report Ordering Provider Test Date Status JOSE A JOHNSON 02/19/2022 16:04:56 Final Observation Date Value Abnormality Reference (Units ) Status Iron 02/19/2022 16:04:56 29 Below low normal 33-151 (ug/dL) Final Iron-binding capacity 02/19/2022 16:04:56 195 Below low normal 250-425 (ug/dL) Final Transferrin Sat % 02/19/2022 16:04:56 15 15-55 (%) Final Performing Location [facility] [place] [address] [place] [address]
--- OUTSIDE RECORDS SUMMARY | 2023-06-18 02:55 | External Medical Summary ---
Author Name Unknown Address Unknown Organization K01:LABORATORY [facility] - [address] [place] [address] [place] [address] Laboratory Report Ordering Provider Test Date Status JOSE A JOHNSON 02/19/2022 16:04:56 Final Observation Date Value Abnormality Reference (Units ) Status Phosphate 02/19/2022 16:04:56 3.4 2.5-4.8 (m g/dL) Final Performing Location [facility] - [address] [facility] [address]
--- OUTSIDE RECORDS SUMMARY | 2023-06-18 02:55 | External Medical Summary ---
Author Name Unknown Address Unknown Organization K01:LABORATORY [place] [address] [facility] [address] Laboratory Report Ordering Provider Test Date Status JOSE A JOHNSON 02/19/2022 16:04:56 Final Observation Date Value Abnormality Reference (Units ) Status WBC, Total 02/19/2022 16:04:56 12.18 Above high normal 4.00-10.80 (K/uL) Final RBC 02/19/2022 16:04:56 4.04 3.85-5.15 (M/uL) Final Hemoglobin 02/19/2022 16:04:56 10.9 Below low normal 12.0-15.3 (g/dL) Final HCT 02/19/2022 16:04:56 35.0 Below low normal 36.0-45.2 (%) Final MCV 02/19/2022 16:04:56 86.6 81.5-97.5 (fL) Final MCH 02/19/2022 16:04:56 27.0 27.0-34.0 (pg) Final MCHC 02/19/2022 16:04:56 31.1 Below low normal 32.0-36.0 (g/dL) Final RDW 02/19/2022 16:04:56 16.7 Above high normal 11.5-15.5 (%) Final MPV 02/19/2022 16:04:56 10.1 6.6-11.1 (fL) Final Nucleated erythrocytes/100 leukocytes [Ratio] in Blood by Automated count 02/19/2022 16:04:56 0 <=0 (/100 WBCs) Final Platelets 02/19/2022 16:04:56 495 Above high normal 140-400 (K/uL) Final Performing Location LABORATORY [facility] [place] - [address] [facility] [address]
--- OUTSIDE RECORDS SUMMARY | 2023-06-18 02:55 | External Medical Summary ---
Author Name Unknown Address Unknown Organization K01:LABORATORY [facility] [place] - [address] [place] [address] Laboratory Report Ordering Provider Test Date Status MADAI MIRANDA 02/19/2022 16:04:56 Elisa l Observation Date Value Abnormality Reference (Units ) Status MYCODE SPECIMEN-SST 02/19/2022 16:04:56 Freezing of extracted DNA, whole blood and/or serum. Final Performing Location [facility] - [address] [place] [address]
--- OUTSIDE RECORDS SUMMARY | 2023-06-18 02:55 | External Medical Summary ---
Author Name Unknown Address Unknown Organization K01:LABORATORY [facility] [place] - [address] [place] [address] Laboratory Report Ordering Provider Test Date Status JOSE A JOHNSON 02/19/2022 16:04:56 Final Observation Date Value Abnormality Reference (Units ) Status HbA1C 02/19/2022 16:04:56 6.8 Above high normal 4. 0-5.6 (%) Final Performing Location [facility]ORY [facility] [address] [facility] [address]
--- OUTSIDE RECORDS SUMMARY | 2023-06-18 02:55 | External Medical Summary | Summary of Care ---
Author Name Unknown Organization [place] [address] Care Team Providers Care Kennel Technician Name Role Phone Alex Pinto MD Primary Care Provider + Reason for Visit * Reason Comments eRx-Medication Refill Encounter Details Date Type Department Care Team Description 02/06/2022 Refill General Internal Medicine [facility] 200 [facility] [place] [address] Alex Pinto MD [address] [facility] [place] [address] Allergies Active Allergy Reactions Severity Noted Date Comments Valsartan 07/10/2010 Enalapril 05/21/2006 Escitalopram Oxalate Nausea/vomiting 10/11/2009 Nauseated Iodinated Diagnostic Agents Nausea/vomiting 05/2010 IV Contrast Iodine Hives 12/18/2009 IV Contrast Metoprolol Tartrate 11/18/2006 Made pulse low [place] Oil-Black Currant-Vit E 07/10/2010 Verapamil 03/21/2004 Bupropion Hcl 10/30/2009 Makes pt sick in the stomach documented as of this encounter (statuses as of 02/07/2022) Medications Medication Sig Dispensed Refills Start Date [...] 180 days 1 Each 1 1 Active Omeprazole 20 MG Oral Capsule [...] Respimat 1.25 MCG/ACT Inhalation Aerosol Solution (Tiotropium [place] Monohydrate) Inhale by mouth. 0 Active Furosemide [...] EVERY DAY 90 Tablet 1 2 Active Promethazine HCl 25 MG Oral Tablet (Phenergan)Indicat ions:Generalized osteoarthritis TAKE 1 TABLET BY MOUTH EVERY 6 HOURS NEEDED FOR NAUSEA 60 Tablet 2 2 Active Ciprofloxacin HCl 500 MG Oral Tablet (Cipro)Indications :Acute diverticulitis Take by mouth 1 Tablet in the morning AND 1 Tablet before bedtime. 20 Tablet 0 2 Active metroNIDAZOLE 500 MG Oral TabletIndications: Acute diverticulitis Take by mouth 1 Tablet in the morning AND 1 Tablet at noon AND 1 Tablet before bedtime. 30 Tablet 0 2 Active Ipratropium-[place] rol 20-100 [...] WITH BREAKFAST 90 Tablet 1 2 Active Glimepiride 2 MG Oral Tablet (Amaryl) TAKE 1 TABLET BY MOUTH EVERY DAY WITH BREAKFAST 90 Tablet 1 2 02/08/20 22 Discontinued documented as of this encounter (statuses as of 02/07/2022) Active Problems Problem Noted Date Type 2 [...] as of this encounter (statuses as of 02/07/2022) Resolved Problems Problem Noted Date Resolved Date [...] Hypoxemia 10/08/2011 10/30/2015 Genetic Sleep Disorder Research Other*[id number] 07/25/2011 05/15/2016 Diverticulitis of colon 07/25/2011 01/06/20 [...] as of this encounter (statuses as of 02/07/2022) Immunizations Name Administration Dates Next Due COVID-19 mRNA, LNP-s, No Pre serve, 2-Dose Series ([employer]) 08/21/2021,12/22/2020,2020 Hepatitis B, 20+ yrs 10/01/2017,04/21/2017,03/20 Pneumococcal [...] encounter Miscellaneous Notes * Telephone Encounter - Allyson Perales RPh - 02/07/2022 12:39 PM EDT Signed Prescriptions: Disp Refills Glimepiride 2 MG Oral Tablet (Amaryl) 90 Tab*1 Sig: TAKE 1 TABLET BY MOUTH EVERY DAY WITH BREAKFASTAuthorizing Provider: ALEX PINTO User: ALLYSON PERALES documented in this encounter Plan of Treatment Upcoming Encounters Date Type Specialty Care Team Description 02/19/2022 Office Visit Internal Medicine Alex Pinto MD [address] [place] [address] 06/25/2022 Office Visit Cardiology Hammad Lopez, DO [address] [facility] [place] [address] Health Maintenance Due Date Last Done Comments Zoster Vaccines (2 of 3) 08/31/2012 07/06/2012 DIABETES-URINE ALBUMIN/CREATININE EVERY 12 MONTHS 07/09/2020 07/09/2019, 07/27/2018, 05/19/2017, Additional history exists COVID-19 Vaccine (4 - Booster for Pfizer series) 01/19/2022 08/21/2021, 12/22/2020, 2020 DIABETES-HGBA1C EVERY 6 MONTHS 02/20/2022 08/23/2021, 03/09/2021, 12/05/2020, Additional history exists CKD PHOS USE SMARTSET 58528 03/09/2022 03/09/2021, 0 03/22/2019 DIABETES-EYE EXAM 03/26/2022 03/26/2021, , 08/10/2019, Additional history exists CKD GFR USE SMARTSET 30157 05/19/202211/19, 11/08/2021, 10/25/2021, Additional history exists Depression Screening, Annual for Pts 12 and Over 08/08/2022 08/08/2021 CKD HGB USE SMARTSET 89833 10/25/202210/25, 08/28/2021, 08/28/2021, Additional history exists BASIC [...] Documents on File Type Date Recorded Patient Quad Stayer Expl anation Advanced 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 Directive Advanced Directive Advanced Directive Care Teams Kennel Technician Relationship Specialty Start Date End Date Alex Pinto MD [address] [place] [address] PCP - General Internal Medicine 08/04/14 documented as of this encounter
--- OUTSIDE RECORDS SUMMARY | 2023-06-18 02:55 | External Medical Summary | Summary of Care ---
Author Name Unknown Organization [place] [address] Care Team Providers Care Coal Hauler Operator Name Role Phone Marcela Pinto MD Primary Care Provider + Reason for Visit * Reason Onset Date Comments Medication Question 02/27/2022 Encounter Details Date Type Department Care Team Description 02/27/2022 Telephone General Internal Medicine [facility] [address] [facility] [place] [address] [facility] [address] Medication Question Allergies Active Allergy Reactions Severity Noted Date Comments Valsartan 07/10/2010 Enalapril 05/21/2006 Escitalopram Oxalate Nausea/vomiting 10/11/2009 Nauseated Iodinated Diagnostic Agents Nausea/vomiting 05/2010 IV Contrast Iodine Hives 12/18/2009 IV Contrast Metoprolol Tartrate 11/18/2006 Made pulse low [place] Oil-Black Currant-Vit E 07/10/2010 Verapamil 03/21/2004 Bupropion Hcl 10/30/2009 Makes pt sick in the stomach documented as of this encounter (statuses as of 02/27/2022) Medications Medication Sig Dispensed Refills Start Date [...] Asthma with severity to be determined,COPD, moderate ([facility]) USE ONE NEBULIZER TREATMENT TWICE A DAY DIRECTED FOR WORSENING ASTHMA. J45.909, J44.9 225 mL 1 06/29/2019 Active Albuterol Sulfate (VENTOLIN HFA) 108 (90 Base) MCG/ACT AERS Inhale 2 Puffs by mouth 2 times a day. 0 12/27/2019 Active Lancets MISCIndications:Type 2 diabetes mellitus with hemoglobin A1c goal of less than 7.0% ([facility]) Use as directed. USE TO TEST [...] Respimat 1.25 MCG/ACT Inhalation Aerosol Solution (Tiotropium [place] Monohydrate) Inhale by mouth. 0 Active Furosemide [...] FOR NAUSEA 60 Tablet 2 01/11/2022 Active Ipratropium-Albutero l 20-100 MCG/ACT Inhalation [...] the morning. 30 Tablet 5 02/19/2022 Active Ciprofloxacin HCl 500 MG Oral Tablet (Cipro)Indications:D iverticulitis of colon Take by mouth 1 Tablet in the morning AND 1 Tablet before bedtime. Do all this for 10 days. 20 Tablet 0 02/19/2022 2 Active metroNIDAZOLE 500 MG Oral TabletIndications:Di verticulitis of colon Take by mouth 1 Tablet in the morning AND 1 Tablet at noon AND 1 Tablet before bedtime. Do all this for 10 days. 30 Tablet 0 02/19/2022 2 Active documented as of this encounter (statuses as of 02/27/2022) Active Problems Problem Noted Date Type 2 [...] as of this encounter (statuses as of 02/27/2022) Resolved Problems Problem Noted Date Resolved Date [...] Hypoxemia 10/08/2011 10/30/2015 Genetic Sleep Disorder Research Other*[id number] 07/25/2011 05/15/2016 Diverticulitis of colon 07/25/2011 01/06/20 [...] as of this encounter (statuses as of 02/27/2022) Immunizations Name Administration Dates Next Due COVID-19 mRNA, LNP-s, No Pre serve, 2-Dose Series ([employer]) 08/21/2021,12/22/2020,2020 Hepatitis B, 20+ yrs 10/01/2017,04/21/2017,03/20 Pneumococcal [...] Telephone Encounter - Angelina Linder LPN - 02/27/2022 3:51 PM EDT Patient calling to check on the Zoloft script. The pharmacy hasn't received it. Reviewed the chart, it was sent for payor response. Released script, went to pharmacy successfully. Patient will check with pharm to make sure the med is covered. documented in this encounter Plan of Treatment Upcoming Encounters Date Type Specialty Care Team Description 06/25/2022 Office Visit Internal Medicine Briseyda Barber MD 200 [place] [address] 06/25/2022 Office Visit Cardiology Hammad Lopez, DO [address] [place] [address] Health Maintenance Due Date Last Done Comments Zoster Vaccines (2 of 3) 08/31/2012 07/06/2012 COVID-19 Vaccine (4 - Booster for Pfizer series) 11/21/2021 08/21/2021, 12/22/2020, 2020 DIABETES-EYE EXAM 03/26/2022 03/26/2021, , 08/10/2019, Additional history exists Depression Screening, Annual for Pts 12 and Over 08/08/2022 08/08/2021 CKD GFR USE SMARTSET 94263 08/22/202202/19, 11/19/2021, 11/08/2021, Additional history exists DIABETES-HGBA1C EVERY 6 MONTHS 08/22/2022 02/19/2022, 08/23/2021, 03/09/2021, Additional history exists DIABETES-FOOT EXAM 11/19/2022 11/19/2021, 0 12/21/2020, 10/19/2019, Additional history exists O2 ASSESSMENT COMPLETED IN PAST YEAR FOR COPD 12/18/2022 12/18/2021 BASIC METABOLIC PANEL (BMP) FOR HTN YEARLY 02/19/2023 02/19/2022, 11/19/2021, 11/08/2021, Additional history exists CKD HGB USE SMARTSET 80115 02/19/202302/19, 02/19/2022, 10/25/2021, Additional history exists CKD PHOS USE SMARTSET 07865 02/19/2023 05/, 03/09/2021, 03/22/2019 DIABETES-URINE ALBUMIN/CREATININE EVERY [...] Documents on File Type Date Recorded Patient Manager Concrete Expl anation Advanced 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 Directive Advanced Directive Advanced Directive Care Teams Coal Hauler Operator Relationship Specialty Start Date End Date Marcela Pinto MD [address] [place] [address] PCP - General Internal Medicine 08/04/14 documented as of this encounter
--- OUTSIDE RECORDS SUMMARY | 2023-06-18 02:55 | External Medical Summary ---
Author Name Unknown Address Unknown Organization K01:LABORATORY [facility] [place] [place] - [address] [place] [address] Laboratory Report Ordering Provider Test Date Status JOSE A JOHNSON 02/19/2022 16:04:56 Final Observation Date Value Abnormality Reference (Units ) Status BUN 02/19/2022 16:04:56 13 6-20 (mg/dL) Final Creatinine 02/19/2022 16:04:56 0.8 0.5-1.0 (mg/dL) Final Glomerular filtration rate/1.73 sq M.predicted [Volume Rate/Area] in Serum, Plasma or Blood by Creatinine-based formula (CKD-EPI) 02/19/2022 16:04:56 74 >=60 (mL/min) Final Performing Location LABORATORY [facility] [place] [place] - [address] [facility] [address]
--- OUTSIDE RECORDS SUMMARY | 2023-06-18 02:55 | External Medical Summary ---
Author Name Unknown Address Unknown Organization K01:LABORATORY [facility] - [address] [place] [address] Laboratory Report Ordering Provider Test Date Status JOSE A JOHNSON 02/19/2022 16:04:56 Final Observation Date Value Abnormality Reference (Units ) Status Ferritin 02/19/2022 16:04:56 132 13-150 (ng /mL) Final Performing Location [facility] [address] [facility] [address]
--- OUTSIDE RECORDS SUMMARY | 2023-06-18 02:55 | External Medical Summary | Summary of Care ---
Author Name Unknown Organization [place] [address] Care Team Providers Care Resident Intern Name Role Phone Marcela Pinto MD Primary Care Provider + Reason for Visit * Reason Onset Date Comments Pre Cert/Prior Auth 01/29/2022 Encounter Details Date Type Department Care Team Description 01/29/2022 Telephone General Internal Medicine [facility] [address] [place] [address] Marcela Pinto MD [address] [place] [address] Pre Cert/Prior Auth Allergies Active Allergy Reactions Severity Noted Date Comments Valsartan 07/10/2010 Enalapril 05/21/2006 Escitalopram Oxalate Nausea/vomiting 10/11/2009 Nauseated Iodinated Diagnostic Agents Nausea/vomiting 05/2010 IV Contrast Iodine Hives 12/18/2009 IV Contrast Metoprolol Tartrate 11/18/2006 Made pulse low [place] Oil-Black Currant-Vit E 07/10/2010 Verapamil 03/21/2004 Bupropion [...] s:Asthma with severity to be determined,COPD, moderate ([facility]) USE ONE NEBULIZER TREATMENT TWICE A DAY DIRECTED FOR WORSENING ASTHMA. J45.909, J44.9 225 mL 1 06/29/20 19 Active Albuterol Sulfate (VENTOLIN HFA) 108 (90 Base) MCG/ACT AERS Inhale 2 Puffs by mouth 2 times a day. 0 12/27/19 20 Active Lancets MISCIndications:Ty pe 2 diabetes mellitus with hemoglobin A1c goal of less than 7.0% ([facility]) Use as directed. USE TO [...] days 1 Each 1 08/09/20 21 Active Omeprazole 20 MG Oral Capsule Delayed [...] evening. 135 Tablet 3 10/04/20 21 Active Glimepiride 2 MG Oral Tablet (Amaryl) TAKE 1 TABLET BY MOUTH EVERY DAY WITH BREAKFAST 90 Tablet 1 10/26/19 22 Active Spiriva Respimat 1.25 MCG/ACT Inhalation Aerosol Solution (Tiotropium [place] Monohydrate) Inhale by mouth. 0 Active Furosemide [...] DAY 90 Tablet 1 01/11/20 22 Active Promethazine HCl 25 MG Oral Tablet (Phenergan)Indicat ions:Generalized osteoarthritis TAKE 1 TABLET BY MOUTH EVERY 6 HOURS NEEDED FOR NAUSEA 60 Tablet 2 01/12/20 22 Active Ciprofloxacin HCl 500 MG Oral Tablet (Cipro)Indications :Acute diverticulitis Take by mouth 1 Tablet in the morning AND 1 Tablet before bedtime. 20 Tablet 0 01/12/20 22 Active metroNIDAZOLE 500 MG Oral TabletIndications: Acute diverticulitis Take by mouth 1 Tablet in the morning AND 1 Tablet at noon AND 1 Tablet before bedtime. 30 Tablet 0 01/12/20 22 Active Ipratropium-[place] rol 20-100 MCG/ACT Inhalation Aerosol Solution (Combivent Respimat)Indicatio ns:Asthma with severity to be determined,COPD, moderate (HCC) TAKE 1 PUFF BY MOUTH 4 TIMES A DAY 12 g 1 10/11/20 21 022 Discontinued HYDROcodone-Acetam inophen 5-325 MG Oral TabletIndications: Generalized osteoarthritis Take by mouth 1 Tablet every 6 hours as needed for Pain, Mild. 120 Tablet 0 01/01/20 22 022 Discontinued(Re fill) documented as of [...] Hypoxemia 10/08/2011 10/30/2015 Genetic Sleep Disorder Research Other*[id number] 07/25/2011 05/15/2016 Diverticulitis of colon 07/25/2011 01/06/20 [...] mRNA, LNP-s, No Pre serve, 2-Dose Series ([employer]) 08/21/2021,12/22/2020,2020 Hepatitis B, 20+ yrs 10/01/2017,04/21/2017,03/20 Pneumococcal [...] Encounter - Mohinder Landry RN - 02/06/2022 1:28 PM EDT Called and spoke with pharmacist at [facility] and they said the patient picked up both prescriptions on 01/24/2022 and did not have to pay anything for either prescription. She said the full 60 grams of the cream were dispensed, but only 30 tablets of dicyclomine were dispensed. Prior-authorization for Dicyclomine submitted via [facility] and it was approved from 01/11/2022thru 10/12/2022. Prior-authorization also attempted for Ketoconazole cream 2% but received message from patient's insurance that prior-authorization not needed as patient already has access to the medication. Called and spoke with pharmacist at [facility] and informed her that prior- authorization for Dicyclomine was approved. Called patient and informed her prior-authorization for Dicyclomine was approved. She verbalized understanding. * Telephone Encounter - Marcela Pinto MD - 01/30/2022 4:29 PM EDT Yes, that should be fine. Thanks. * Telephone Encounter - Mohinder Landry RN - 01/29/2022 1:27 PM EDT Received fax from [employer] stating that Ketoconazole 2% cream is subject to a quantity limit which is 60 grams every 30 days. Also received fax from [employer] stating that Dicyclomine 20 mg tablet requires prior-authorization. Ok to request quantity limit exception Ketoconazole cream and also do prior- authorization for Dicyclomine? Please advise. documented in this encounter Plan of Treatment Upcoming Encounters Date Type Specialty Care Team Description 02/19/2022 Office Visit Internal Medicine Marcela Pinto MD [address] [place] [address] 06/25/2022 Office Visit Cardiology [facility]ammad Lopez, DO [address] [facility] [id number] Health Maintenance Due Date Last Done Comments Zoster Vaccines (2 of 3) 08/31/2012 07/06/2012 DIABETES-URINE ALBUMIN/CREATININE EVERY 12 MONTHS 07/09/2020 07/09/2019, 07/27/2018, 05/19/2017, Additional history exists COVID-19 Vaccine (4 - Booster for Pfizer series) 01/19/2022 08/21/2021, 12/22/2020, 2020 DIABETES-HGBA1C EVERY 6 MONTHS 02/20/2022 08/23/2021, 03/09/2021, 12/05/2020, Additional history exists CKD PHOS USE SMARTSET 53089 03/09/2022 03/09/2021, 0 03/22/2019 DIABETES-EYE EXAM 03/26/2022 03/26/2021, , 08/10/2019, Additional history exists CKD GFR USE SMARTSET 98752 05/19/202211/19, 11/08/2021, 10/25/2021, Additional history exists Depression Screening, Annual for Pts 12 and Over 08/08/2022 08/08/2021 CKD HGB USE SMARTSET [id number] 10/25/202210/25, 08/28/2021, 08/28/2021, Additional history exists BASIC [...] Documents on File Type Date Recorded Patient Traveling Sales Executive Expl anation Advanced 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 Directive Advanced Directive Advanced Directive Care Teams Resident Intern Relationship Specialty Start Date End Date Marcela Pinto MD [address] [place] [address] PCP - General Internal Medicine 08/04/14 documented as of this encounter
--- OUTSIDE RECORDS SUMMARY | 2023-06-18 02:55 | External Medical Summary | Summary of Care ---
Author Name Unknown Organization [place] [address] Care Team Providers Care Soft Mud Molder Name Role Phone Marcela Pinto MD Primary Care Provider + Reason for Referral * Medication Prior Authorization - Closed Specialty Diagnoses / Procedures Referred By Miguel Angel roe Referred To Contact Diagnoses Diverticulitis of colon Marcela Pinto MD [address] [place] [address] Referral ID Status Reason Start Date Expiration Date Visits Re quested Visits Authorized Closed 1 1 * Medication Prior Authorization - Pending Review Specialty Diagnoses / Procedures Referred By Miguel Angel roe Referred To Contact Diagnoses Major depressive disorder with single episode, in partial remission (HCC) HECTOR (generalized anxiety disorder) Marcela Pinto MD [address] [place] [address] Referral ID Status Reason Start Date Expiration [...] 02/19/2022 Office Visit General Internal Medicine [employer] [address] [place] [address] Marcela Pinto MD [address] [place] [id number] Type 2 diabetes mellitus with hemoglobin A1c goal of less than 7.5% ([facility])*; Risk and functional assessment; Stage 3a chronic [...] Contrast Metoprolol Tartrate 11/18/2006 Made pulse low [place] Oil-Black Currant-Vit E 07/10/2010 Verapamil 03/21/2004 Bupropion Hcl 10/30/2009 Makes pt sick in the stomach documented as of this encounter (statuses as of 02/19/2022) Medications Medication Sig Dispensed Refills Start Date [...] Oral Tablet Extended Release 24 Hour (toPROL XL)Indications:Medicaid Specialist akin 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 135 Tablet 3 1 Active Spiriva Respimat 1.25 MCG/ACT Inhalation Aerosol Solution (Tiotropium Flas[place] Monohydrate) Inhale by mouth. 0 Active Furosemide [...] FOR NAUSEA 60 Tablet 2 2 Active Ipratropium-Albuter ol 20-100 MCG/ACT Inhalation Aerosol Solution (Combivent Respimat)Indication s:Asthma with severity to be determined,COPD, moderate (HCC) TAKE 1 PUFF BY MOUTH 4 TIMES A DAY 12 g 1 2 Active HYDROcodone-Acetami nophen 5-325 MG Oral [...] 500 MG Oral Tablet (Cipro)Indications: Diverticulitis of colon Take by mouth 1 Tablet in the morning AND 1 Tablet before bedtime. Do all this for 10 days. 20 Tablet 0 2 03/01/20 22 Active metroNIDAZOLE 500 MG Oral TabletIndications:D iverticulitis of colon Take by mouth 1 Tablet in the morning AND 1 Tablet at noon AND 1 Tablet before bedtime. Do all this for 10 days. 30 Tablet 0 2 03/01/20 22 Active Ciprofloxacin HCl 500 MG Oral Tablet (Cipro)Indications: Acute diverticulitis Take by mouth 1 Tablet in the morning AND 1 Tablet before bedtime. 20 Tablet 0 2 02/20/20 22 Discontinu ed(Medicat ion List Clean Up) metroNIDAZOLE 500 MG Oral TabletIndications:A cute diverticulitis Take by mouth 1 Tablet in the morning AND 1 Tablet at noon AND 1 Tablet before bedtime. 30 Tablet 0 2 02/20/20 22 Discontinu ed(Medicat ion List Clean Up) documented as of this encounter (statuses as of 02/19/2022) Active Problems Problem Noted Date Type 2 diabetes mellitus wit h stage 3a chronic kidney disease, without long-term current use of insulin 11/19/2021 History of ESBL E. coli infection 12/10/ 2021 Subclinical hyperthyroidism 08/20/2021 Chronic kidney disease, stage [...] as of this encounter (statuses as of 02/19/2022) Resolved Problems Problem Noted Date Resolved Date Type 2 diabetes mellitus wit h stage 3a chronic kidney disease 05/21/2021 11/19/2021 Overview: Per CKD protocol Asthma in remission 01/09/2021 03/05/2021 Asthma, mild persistent 01/09/2021 03/05/20 21 Asthma, moderate persistent 01/09/202102/112021 Asthma, severe persistent 01/09/20212020 Intermittent asthma with [...] Hypoxemia 10/08/2011 10/30/2015 Genetic Sleep Disorder Research Other*[id number] 07/25/2011 05/15/2016 Diverticulitis of colon 07/25/2011 01/06/20 [...] as of this encounter (statuses as of 02/19/2022) Immunizations Name Administration Dates Next Due COVID-19 mRNA, LNP-s, No Pre serve, 2-Dose Series ([employer]) 08/21/2021,12/22/2020,2020 Hepatitis B, 20+ yrs 10/01/2017,04/21/2017,03/20 Pneumococcal [...] of less than 7.5% ([facility]) E11.9 Elevated plasma metanephrines R79.89 Irritable bowel syndrome with constipation K58.1 HECTOR (generalized anxiety disorder) F41.1 COPD, group B, 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 ([facility]) J44.9 Morbid obesity with BMI of 40.0-44.9, adult ([facility]) E66.01, Z68.41 Gastro-esophageal reflux disease without esophagitis K21.9 Paroxysmal atrial fibrillation ([facility]) I48.0 Chronic systolic heart failure ([facility]) I50.22 Pulmonary HTN ([facility]) I27.20 Chronic hypoxemic respiratory failure ([facility]) J96.11 Chronic kidney disease, stage 3a ([facility]) N18.31 Subclinical hyperthyroidism E05.90 History of ESBL E. coli infection Z86.19 Type 2 diabetes mellitus with stage 3a chronic kidney disease, without long- term current use ofinsulin ([facility]) E11.22, N18.31 Current Outpatient Medications Medication Sig [...] Respimat 1.25 MCG/ACT Inhalation Aerosol Solution (Tiotropium Flasher Monohydrate) Inhale by mouth. 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 Risk and functional assessment Kidney disease, chronic, stage III (GFR 30-59 ml/min) ([facility]) - PHOSPHORUS; Future; Expected date: 02/19/2022 Avoid [...] after finishing antibiotic documented in this encounter Plan of Treatment Upcoming Encounters Date Type Specialty Care Team Description 02/19/2022 Laboratory Laboratory Moon Romero [address] [place] [address] [address] [email or web address] Research Other*[id number]; Stage 3a chronic kidney disease (HCC); Type 2 diabetes mellitus with hemoglobin A1c goal of less than 7.5% (HCC); Iron deficiency anemia, unspecified iron deficiency anemia type; Subclinical hyperthyroidism 06/25/2022 Office Visit Internal Medicine Briseyda Barber MD [address] [place] [address] 06/25/2022 Office Visit Cardiology Hammad Lopez, DO [address] [facility] [place] [id number] Pending Results Name Type Priority Associated Diagnoses Date /Time PHOSPHORUS Lab Routine Stage 3a chronic kidney disease (HCC) 02/19/2022 4:04 PM EDT HEMOGLOBIN A1C Lab Routine Type 2 diabetes mellitus with hemoglobin A1c goal of less than 7.5% (HCC) 02/19/2022 4:04 PM EDT FERRITIN Lab Routine Iron deficiency anemia, unspecified iron deficiency anemia type 02/19/2022 4:04 PM EDT IRON SCREEN, INCLUDING TIBC Lab Routine Iron deficiency anemia, unspecified iron deficiency anemia type 02/19/2022 4:04 PM EDT CBC WITH WBC DIFFERENTIAL Lab Routine Iron deficiency anemia, unspecified iron deficiency anemia type 02/19/2022 4:04 PM EDT TSH WITH FREE T4 IF INDICATED Lab Routine Subclinical hyperthyroidism 02/19/2022 4:04 PM EDT COMPREHENSIVE METABOLIC PANEL Lab Routine Type 2 diabetes mellitus with hemoglobin A1c goal of less than 7.5% (HCC) Stage 3a chronic kidney disease (HCC) 02/19/2022 4:04 PM EDT Scheduled Orders Name Type Priority Associated Diagnoses Orde r Schedule PHOSPHORUS Lab Routine Stage 3a chronic kidney disease (HCC) Expected: 02/19/2022, Expires: 02/18/2023 ALBUMIN / CREATININE RATIO, URINE Lab Routine Type 2 diabetes mellitus with hemoglobin A1c goal of less than 7.5% (HCC) Expected: 02/19/2022, Expires: 02/19/2023 HEMOGLOBIN A1C Lab Routine Type 2 diabetes mellitus with hemoglobin A1c goal of less than 7.5% (HCC) Expected: 02/19/2022 (Approximate), Expires: 02/19/2023 FERRITIN Lab Routine Iron deficiency anemia, unspecified iron deficiency anemia type Expected: 02/19/2022 (Approximate), Expires: 02/19/2023 IRON SCREEN, INCLUDING TIBC Lab Routine Iron deficiency anemia, unspecified iron deficiency anemia type Expected: 02/19/2022 (Approximate), Expires: 02/19/2023 CBC WITH WBC DIFFERENTIAL Lab Routine Iron deficiency anemia, unspecified iron deficiency anemia type Expected: 02/19/2022 (Approximate), Expires: 02/19/2023 TSH WITH FREE T4 IF INDICATED Lab Routine Subclinical hyperthyroidism Expected: 02/19/2022 (Approximate), Expires: 02/19/2023 COMPREHENSIVE METABOLIC PANEL Lab Routine Type 2 diabetes mellitus with hemoglobin A1c goal of less than 7.5% (HCC) Stage 3a chronic kidney disease (HCC) Expected: 02/19/2022 (Approximate), Expires: 02/19/2023 Health Maintenance Due Date Last Done Comments Zoster Vaccines (2 of 3) 08/31/2012 07/06/2012 DIABETES-URINE ALBUMIN/CREATININE EVERY 12 MONTHS 07/09/2020 07/09/2019, 07/27/2018, 05/19/2017, Additional history exists COVID-19 Vaccine (4 - Booster for Pfizer series) 01/19/2022 08/21/2021, 12/22/2020, 2020 DIABETES-HGBA1C EVERY 6 MONTHS 02/20/2022 08/23/2021, 03/09/2021, 12/05/2020, Additional history exists CKD PHOS USE SMARTSET 06156 03/09/2022 03/09/2021, 0 03/22/2019 DIABETES-EYE EXAM 03/26/2022 03/26/2021, , 08/10/2019, Additional history exists CKD GFR USE SMARTSET 63632 05/19/202211/19, 11/08/2021, 10/25/2021, Additional history exists Depression Screening, Annual for Pts 12 and Over 08/08/2022 08/08/2021 CKD HGB USE SMARTSET 43483 10/25/202210/25, 08/28/2021, 08/28/2021, Additional history exists BASIC [...] Diverticulitis of colon (without mention of hemorrhage) [employer] Other*[id number] Stage 3a chronic kidney disease (HCC) Type 2 diabetes mellitus with hemoglobin A1c goal of less than 7.5% (HCC) Iron deficiency anemia, unspecified iron deficiency anemia type Subclinical hyperthyroidism Thyrotoxicosis without mention of goiter or other cause, without mention of thyrotoxic crisis or storm documented in this encounter Advance Directives Documents on File Type Date Recorded Patient Licensed Appraiser Expl anation Advanced 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 Directive Advanced Directive Advanced Directive Care Teams Soft Mud Molder Relationship Specialty Start Date End Date Marcela Pinto MD [address] [place] [address] PCP - General Internal Medicine 08/04/14 documented as of this encounter"
--- OUTSIDE RECORDS SUMMARY | 2023-06-18 02:56 | External Medical Summary | Summary of Care ---
Author Name Unknown Organization [place] [address] Care Team Providers Care Monomer Recovery Operator Name Role Phone Alex Pinto MD Primary Care Provider + Reason for Visit * Reason Onset Date Comments Medication Refill 12/28/2021 Encounter Details Date Type Department Care Team Description 12/28/2021 Refill General Internal Medicine [facility] [address] [place] [address] Alex Pinto MD [address] [place] [address] GENERAL OSTEOARTHROSIS Allergies Active Allergy Reactions Severity Noted Date Comments Valsartan 07/10/2010 Enalapril 05/21/2006 Escitalopram Oxalate Nausea/vomiting 10/11/2009 Nauseated Iodinated Diagnostic Agents Nausea/vomiting 05/2010 IV Contrast Iodine Hives 12/18/2009 IV Contrast Metoprolol Tartrate 11/18/2006 Made pulse low [place] Oil-Black Currant-Vit E 07/10/2010 Verapamil 03/21/2004 Bupropion Hcl 10/30/2009 Makes pt sick in the stomach documented as of this encounter (statuses as of 12/31/2021) Medications Medication Sig Dispensed Refills Start Date [...] :Asthma with severity to be determined,COPD, moderate ([facility]) USE ONE NEBULIZER TREATMENT TWICE A DAY DIRECTED FOR WORSENING ASTHMA. J45.909, J44.9 225 mL 1 9 Active Albuterol Sulfate (VENTOLIN HFA) 108 (90 Base) MCG/ACT AERS Inhale 2 Puffs by mouth 2 times a day. 0 0 Active Lancets MISCIndications:Typ e 2 diabetes mellitus with hemoglobin A1c goal of less than 7.0% ([facility]) Use as directed. USE TO TEST [...] 180 days 1 Each 1 1 Active methIMAzole 10 MG Oral Tablet (Tapazole)Indicatio ns:Hyperthyroidism TAKE 1 TABLET BY MOUTH EVERY DAY 90 Tablet 1 1 Active Omeprazole 20 MG Oral [...] Oral Tablet Extended Release 24 Hour (toPROL XL)Indications:Crepe Maker akin 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 135 Tablet 3 1 Active Ipratropium-Albuter ol 20-100 MCG/ACT Inhalation Aerosol Solution (Combivent Respimat)Indication s:Asthma with severity to be determined,COPD, moderate (HCC) TAKE 1 PUFF BY MOUTH 4 TIMES A DAY 12 g 1 1 Active Glimepiride 2 MG Oral Tablet (Amaryl) TAKE 1 TABLET BY MOUTH EVERY DAY WITH BREAKFAST 90 Tablet 1 2 Active Spiriva Respimat 1.25 MCG/ACT Inhalation Aerosol Solution (Tiotropium [place] Monohydrate) Inhale by mouth. 0 Active Furosemide 40 MG Oral Tablet (Lasix)Indications: Chronic systolic heart failure (HCC),Paroxysmal atrial fibrillation (HCC),Chronic 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),NICM (nonischemic cardiomyopathy) (HCC),Chronic atrial fibrillation (HCC),Hospital discharge follow-up,Presence of Watchman left atrial appendage closure device Take 1.5 Tablets by mouth 2 times a day. 270 Tablet 1 2 Active Promethazine HCl 25 MG Oral Tablet (Phenergan)Indicati ons:Generalized osteoarthritis TAKE 1 TABLET BY MOUTH EVERY 6 HOURS NEEDED FOR NAUSEA 60 Tablet 2 2 Active Lisinopril 2.5 MG Oral Tablet [...] the morning. 100 Tablet 3 2 Active HYDROcodone-Acetami nophen 5-325 MG Oral TabletIndications:G eneralized osteoarthritis Take by mouth 1 Tablet every 6 hours as needed for Pain, Mild. 120 Tablet 0 2 Active HYDROcodone-Acetami nophen 5-325 MG Oral TabletIndications:G eneralized osteoarthritis Take by mouth 1 Tablet every 6 hours as needed for Pain, Mild. 120 Tablet 0 2 12/29/19 22 Discontinu ed(Refill) documented as of this encounter (statuses as of 12/31/2021) Active Problems Problem Noted Date Type 2 [...] as of this encounter (statuses as of 12/31/2021) Resolved Problems Problem Noted Date Resolved Date Type 2 diabetes mellitus wit h stage 3a chronic kidney disease 05/21/2021 11/19/2021 Overview: Per CKD protocol Asthma in remission 01/09/2021 03/05/2021 Asthma, mild persistent 01/09/2021 03/05/20 Asthma, moderate persistent 01/09/2021/2 01/2021 Asthma, severe persistent 01/09/20212020 Intermittent asthma [...] Hypoxemia 10/08/2011 10/30/2015 Genetic Sleep Disorder Research Other*[id number] 07/25/2011 05/15/2016 Diverticulitis of colon 07/25/2011 01/06/20 [...] as of this encounter (statuses as of 12/31/2021) Immunizations Name Administration Dates Next Due COVID-19 mRNA, LNP-s, No Pre serve, 2-Dose Series ([employer] 08/21/2021,12/22/2020,2020 Hepatitis B, 20+ yrs 10/01/2017,04/21/2017,03/20 Pneumococcal [...] Telephone Encounter - Alex Pinto MD - 12/31/2021 12:15 PM EDT Signed Prescriptions: Disp Refills HYDROcodone-Acetaminophen 5-325 MG Oral Ta*120 Ta*0 Sig: Take by mouth 1 Tablet every 6 hours as needed for Pain, Mild. Authorizing Provider: ALEX PINTO * Telephone Encounter - Sharonda Clark [facility] - 12/29/2021 9:32 AM EDT Pending Prescriptions: Disp Refills HYDROcodone-Acetaminophen 5-325 MG Oral T*120 Ta*0 Sig: Take by mouth 1 Tablet every 6 hours as needed for Pain, Mild. * Telephone Encounter - Sharonda Clark RP - 12/29/2021 9:31 AM EDT I have reviewed the patients controlled substance dispensing history in the Prescription Drug Monitoring Program in compliance with the [facility] regulations before prescribing a controlled substance. PDMP checked on 12/29/2021. Pending Prescriptions: Disp Refills HYDROcodone-Acetaminophen 5-325 MG Oral T*120 Ta*0 Sig: Take by mouth 1 Tablet every 6 hours as needed for Pain, Mild. Last Visit: 12/18/2021 (in office), 08/08/2020 (telemedicine) Next Visit: 02/19/2022 Date medication was last filled: 11/21/21 Date medication is due for refill: 12/21/21 Pharmacy: [facility] #[id number] [id number] [facility] Is this request for a controlled substance?Yes and Urine Drug Screen completed Toxicology results: Results for orders placed or performed in [...] results can be found in Results Review. Please approve if appropriate. Thank You, Sharonda Clark RPh Pharmacist Telepharmacy [phone] 12/29/2021, 9:32 AM * Telephone Encounter - Lexie Riley, supervisor hanging and trimming - 12/28/2021 11:49 AM EDT Pending Prescriptions: Disp Refills HYDROcodone-Acetaminophen 5-325 MG Oral T*120 Ta*0 Sig: Take by mouth 1 Tablet every 6 hours as needed for Pain, Mild. Last Visit: 12/18/2021 (in office), 08/08/2020 (telemedicine) Next Visit: 02/19/2022 If no future appointments scheduled, and last appointment is greater than a year ago, please schedule patient for a follow-up appointment Last date the medication was ordered: 11/21/2021 Pharmacy: [facility] #[id number] [id number] [facility] Is this request for a controlled substance?Yes and Urine Drug Screen completed Urine Drug Screen: Results for orders [...] Labs: Lab Results Component Value Date/Time CREAT 0.9 11/19/2021 03:29 PM CREAT 1.08 (A) 06/12/2021 12:00 AM CREAT 1.0 05/27/2020 04:51 PM POTASSIUM 4.7 11/19/2021 03:29 PM POTASSIUM 4.1 06/12/2021 12:00 AM POTASSIUM 4.0 05/27/2020 04:51 PM TSH 13.40 (H) 11/19/2021 03:29 PM TSH 0.965 12/05/2020 12:00 AM TSH 0.42 07/27/2018 11:32 AM LDLCALC 76 08/07/2021 09:05 AM LDLCALC 75.20 12/05/2020 12:00 AM LDLCALC 95 07/27/2018 11:32 AM LDLDIRECT 85 12/05/2020 12:00 AM LDLDIRECT 97 07/27/2018 11:32 AM ALT 11 08/07/2021 09:05 AM ALT 15 05/27/2020 04:51 PM HGBA1C 6.8 (H) 08/23/2021 02:34 PM HGBA1C 6.5 (A) 12/05/2020 12:00 AM HGBA1C 6.6 (H) 08/26/2019 02:55 PM documented in this encounter Plan of Treatment Upcoming Encounters Date Type Specialty Care Team Description 02/19/2022 Office Visit Internal Medicine Alex Pinto MD [address] [facility] [place] [address] 06/25/2022 Office Visit Cardiology Hammad Lopez, DO [address] [place] [address] Health Maintenance Due Date Last Done Comments Zoster Vaccines (2 of 3) 08/31/2012 07/06/2012 DIABETES-URINE ALBUMIN/CREATININE EVERY 12 MONTHS 07/09/2020 07/09/2019, 07/27/2018, 05/19/2017, Additional history exists COVID-19 Vaccine (4 - Booster for Pfizer series) 01/19/2022 08/21/2021, 12/22/2020, 2020 DIABETES-HGBA1C EVERY 6 MONTHS 02/20/2022 08/23/2021, 03/09/2021, 12/05/2020, Additional history exists CKD PHOS USE SMARTSET 09464 03/09/2022 03/09/2021, 0 03/22/2019 DIABETES-EYE EXAM 03/26/2022 03/26/2021, , 08/10/2019, Additional history exists CKD GFR USE SMARTSET 35617 05/19/202211/19, 11/08/2021, 10/25/2021, Additional history exists Depression Screening, Annual for Pts 12 and Over 08/08/2022 08/08/2021 CKD HGB USE SMARTSET 85054 10/25/202210/25, 08/28/2021, 08/28/2021, Additional history exists BASIC [...] on File Type Date Recorded 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
--- OUTSIDE RECORDS SUMMARY | 2023-06-18 02:56 | External Medical Summary | Summary of Care ---
Author Name Unknown Organization [place] [address] Care Team Providers Care Compliance Specialist Name Role Phone Alex Pinto MD Primary Care Provider + Reason for Visit * Reason Comments eRx-Medication Refill Encounter Details Date Type Department Care Team Description 01/09/2022 Refill General Internal Medicine [facility] [address] [facility] [place] [id number] Alex Pinto MD [address] [place] [address] Hyperthyroidism Allergies Active Allergy Reactions Severity Noted Date Comments Valsartan 07/10/2010 Enalapril 05/21/2006 Escitalopram Oxalate Nausea/vomiting 10/11/2009 Nauseated Iodinated Diagnostic Agents Nausea/vomiting 05/2010 IV Contrast Iodine Hives 12/18/2009 IV Contrast Metoprolol Tartrate 11/18/2006 Made pulse low [place] Oil-Black Currant-Vit E 07/10/2010 Verapamil 03/21/2004 Bupropion Hcl 10/30/2009 Makes pt sick in the stomach documented as of this encounter (statuses as of 01/10/2022) Medications Medication Sig Dispensed Refills Start Date [...] s:Asthma with severity to be determined,COPD, moderate ([place] [...] the evening. 135 Tablet 3 1 Active Ipratropium-[place] rol 20-100 MCG/ACT Inhalation Aerosol Solution (Combivent Respimat)Indicatio ns:Asthma with severity to be determined,COPD, moderate (HCC) TAKE 1 PUFF BY MOUTH 4 TIMES A DAY 12 g 1 1 Active Glimepiride 2 MG Oral Tablet (Amaryl) TAKE 1 TABLET BY MOUTH EVERY DAY WITH BREAKFAST 90 Tablet 1 2 Active Spiriva Respimat 1.25 MCG/ACT Inhalation Aerosol Solution (Tiotropium [place] Monohydrate) Inhale by mouth. 0 Active Furosemide [...] the morning. 100 Tablet 3 2 Active HYDROcodone-Acetam inophen 5-325 MG Oral TabletIndications: Generalized osteoarthritis Take by mouth 1 Tablet every 6 hours as needed for Pain, Mild. 120 Tablet 0 2 Active methIMAzole 10 MG Oral Tablet (Tapazole)Indicati ons:Hyperthyroidis m TAKE 1 TABLET BY MOUTH EVERY DAY 90 Tablet 1 2 Active methIMAzole 10 MG Oral Tablet (Tapazole)Indicati ons:Hyperthyroidis m TAKE 1 TABLET BY MOUTH EVERY DAY 90 Tablet 1 1 01/11/20 22 Discontinued documented as of this encounter (statuses as of 01/10/2022) Active Problems Problem Noted Date Type 2 [...] as of this encounter (statuses as of 01/10/2022) Resolved Problems Problem Noted Date Resolved Date [...] Hypoxemia 10/08/2011 10/30/2015 Genetic Sleep Disorder Research Other*[id number] 07/25/2011 05/15/2016 Diverticulitis of colon 07/25/2011 01/06/20 [...] as of this encounter (statuses as of 01/10/2022) Immunizations Name Administration Dates Next Due COVID-19 mRNA, LNP-s, No Pre serve, 2-Dose Series ([employer]) 08/21/2021,12/22/2020,2020 Hepatitis B, 20+ yrs 10/01/2017,04/21/2017,03/20 Pneumococcal [...] Telephone Encounter - Alex Pinto MD - 01/10/2022 12:27 PM EDT Signed Prescriptions: Disp Refills methIMAzole 10 MG Oral Tablet (Tapazole) 90 Tab*1 Sig: TAKE 1 TABLET BY MOUTH EVERY DAY Authorizing Provider: ALEX PINTO * Telephone Encounter - Gabe Jo RPh - 01/10/2022 8:15 AM EDT Pending Prescriptions: Disp Refills methIMAzole 10 MG Oral Tablet (Tapazole) *90 Tab*1 Sig: TAKE 1 TABLET BY MOUTH EVERY DAY * Telephone Encounter - Gabe Jo RP - 01/10/2022 8:14 AM EDT Unable to authorize medication refills for pended medication(s) at this time. Part of the protocol criteria used for refill authorization was not satisfied. Patient's TSH and T4 are not within protocol parameters. Please approve if appropriate. TSH Results: Lab Results Component Value Date/Time TSH - [facility] 13.40 (H) 11/19/2021 03:29 PM TSH - [facility] 0.42 07/27/2018 11:32 AM TSH - [facility] 0.60 01/14/2018 12:03 PM TSH - [facility] 0.88 05/19/2017 12:11 PM TSH - [facility] 0.965 12/05/2020 12:00 AM TSH - [facility] 0.241 (A) 06/28/2020 12:00 AM TSH - [facility] 0.443 03/10/2020 12:00 AM T4 Results: Lab Results Component Value Date/Time FREE T4 REFLEXIVE NOT APPLICABLE 03/28/2015 11:43 AM T4, FREE - [facility] 0.7 (L) 11/19/2021 03:29 PM T4, FREE - [facility] 1.29 07/27/2018 11:32 AM T4, FREE - [facility] 1.20 01/14/2018 12:03 PM T4, FREE - [facility] 1.16 05/19/2017 12:11 PM ThanksGabe, PharmD Clinical Pharmacist [facility] [phone] 01/10/2022 8:14 AM * Telephone Encounter - Gabe Jo RPh - 01/10/2022 8:13 AM EDT Pending Prescriptions: Disp Refills methIMAzole 10 MG Oral Tablet (Tapazole) *90 Tab*1 Sig: TAKE 1 TABLET BY MOUTH EVERY DAY Last Visit: 12/18/2021 (in office), 08/08/2020 (telemedicine) Next Visit: 02/19/2022 If no future appointments scheduled, and last appointment is greater than a year ago, please schedule patient for a follow-up appointment Last date the medication was ordered: Pharmacy: [id number] [address] [facility] Is this request for a controlled substance?No [...] Visit Internal Medicine [facility] [address] 06/25/2022 Office Visit Cardiology Hammad Lopez, [address] [facility] [place] [address] Health Maintenance Due Date Last Done Comments Zoster Vaccines (2 of 3) 08/31/2012 07/06/2012 DIABETES-URINE ALBUMIN/CREATININE EVERY 12 MONTHS 07/09/2020 07/09/2019, 07/27/2018, 05/19/2017, Additional history exists COVID-19 Vaccine (4 - Booster for Pfizer series) 01/19/2022 08/21/2021, 12/22/2020, 2020 DIABETES-HGBA1C EVERY 6 MONTHS 02/20/2022 08/23/2021, 03/09/2021, 12/05/2020, Additional history exists CKD PHOS USE SMARTSET 03830 03/09/2022 03/09/2021, 0 03/22/2019 DIABETES-EYE EXAM 03/26/2022 03/26/2021, , 08/10/2019, Additional history exists CKD GFR USE SMARTSET 09862 05/19/202211/19, 11/08/2021, 10/25/2021, Additional history exists Depression Screening, Annual for Pts 12 and Over 08/08/2022 08/08/2021 CKD HGB USE SMARTSET 56603 10/25/202210/25, 08/28/2021, 08/28/2021, Additional history exists BASIC [...] Documents on File Type Date Recorded 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
--- OUTSIDE RECORDS SUMMARY | 2023-06-18 02:56 | External Medical Summary | Summary of Care ---
Author Name Unknown Organization [place] [address] Care Team Providers Care Christmas Tree Contractor Name Role Phone Alex Pinto MD Primary Care Provider + Reason for Visit * Reason Comments eRx-Medication Refill Encounter Details Date Type Department Care Team Description 01/10/2022 Refill General Internal Medicine [facility] [address] [facility] [place] [address] Alex Pinto MD [address] [place] [address] GENERAL OSTEOARTHROSIS Allergies Active Allergy Reactions Severity Noted Date Comments Valsartan 07/10/2010 Enalapril 05/21/2006 Escitalopram Oxalate Nausea/vomiting 10/11/2009 Nauseated Iodinated Diagnostic Agents Nausea/vomiting 05/2010 IV Contrast Iodine Hives 12/18/2009 IV Contrast Metoprolol Tartrate 11/18/2006 Made pulse low [place] Oil-Black Currant-Vit E 07/10/2010 Verapamil 03/21/2004 Bupropion Hcl 10/30/2009 Makes pt sick in the stomach documented as of this encounter (statuses as of 01/11/2022) Medications Medication Sig Dispensed Refills Start Date [...] s:Asthma with severity to be determined,COPD, moderate ([facility]) USE ONE NEBULIZER TREATMENT TWICE A DAY DIRECTED FOR WORSENING ASTHMA. J45.909, J44.9 225 mL 1 9 Active Albuterol Sulfate (VENTOLIN HFA) 108 (90 Base) MCG/ACT AERS Inhale 2 Puffs by mouth 2 times a day. 0 0 Active Lancets MISCIndications:Ty pe 2 diabetes mellitus with hemoglobin A1c goal of less than 7.0% ([facility]) Use as directed. USE TO TEST [...] Respimat 1.25 MCG/ACT Inhalation Aerosol Solution (Tiotropium [place] Monohydrate) Inhale by mouth. 0 Active Furosemide [...] NEEDED FOR NAUSEA 60 Tablet 2 2 01/12/20 22 Discontinued documented as of this encounter (statuses as of 01/11/2022) Active Problems Problem Noted Date Type 2 [...] as of this encounter (statuses as of 01/11/2022) Resolved Problems Problem Noted Date Resolved Date [...] Hypoxemia 10/08/2011 10/30/2015 Genetic Sleep Disorder Research Other*[id number] 07/25/2011 05/15/2016 Diverticulitis of colon 07/25/2011 01/06/20 [...] as of this encounter (statuses as of 01/11/2022) Immunizations Name Administration Dates Next Due COVID-19 mRNA, LNP-s, No Pre serve, 2-Dose Series ([employer]) 08/21/2021,12/22/2020,2020 Hepatitis B, 20+ yrs 10/01/2017,04/21/2017,03/20 Pneumococcal [...] Telephone Encounter - Alex Pinto MD - 01/11/2022 2:08 PM EDT Signed Prescriptions: Disp Refills Promethazine HCl 25 MG Oral Tablet (Phener*60 Tab*2 Sig: TAKE 1 TABLET BY MOUTH EVERY 6 HOURS NEEDED FOR NAUSEA Authorizing Provider: ALEX PINTO * Telephone Encounter - Pablo Jimenez [facility] - 01/11/2022 10:17 AM EDT Pending Prescriptions: Disp Refills Promethazine HCl 25 MG Oral Tablet [Pharma*60 Tab*2 Sig: TAKE 1 TABLET BY MOUTH EVERY 6 HOURS NEEDED FOR NAUSEA * Telephone Encounter - Pablo Jimenez RPh - 01/11/2022 10:17 AM EDT Telepharmacy not authorized to fill for this medication per protocol. Please approve if appropriate. Pending Prescriptions: Disp Refills Promethazine HCl 25 MG Oral Tablet [Pharma*60 Tab*2 Sig: TAKE 1 TABLET BY MOUTH EVERY 6 HOURS NEEDED FOR NAUSEA 12/18/2021 (in office), 08/08/2020 (telemedicine) 02/19/2022 If no future appointments scheduled, and last appointment is greater than a year ago, please schedule patient for a follow-up appointment Last date the medication was ordered: Pharmacy: [id number] [address] [facility] Is this request for a controlled substance? [...] Visit Internal Medicine Alex Pinto MD [address] [facility] [place] [address] 06/25/2022 Office Visit Cardiology Hammad Lopez DO [address] [facility] [place] [address] Health Maintenance Due Date Last Done Comments Zoster Vaccines (2 of 3) 08/31/2012 07/06/2012 DIABETES-URINE ALBUMIN/CREATININE EVERY 12 MONTHS 07/09/2020 07/09/2019, 07/27/2018, 05/19/2017, Additional history exists COVID-19 Vaccine (4 - Booster for Pfizer series) 01/19/2022 08/21/2021, 12/22/2020, 2020 DIABETES-HGBA1C EVERY 6 MONTHS 02/20/2022 08/23/2021, 03/09/2021, 12/05/2020, Additional history exists CKD PHOS USE SMARTSET 97447 03/09/2022 03/09/2021, 0 03/22/2019 DIABETES-EYE EXAM 03/26/2022 03/26/2021, , 08/10/2019, Additional history exists CKD GFR USE SMARTSET 05164 05/19/202211/19, 11/08/2021, 10/25/2021, Additional history exists Depression Screening, Annual for Pts 12 and Over 08/08/2022 08/08/2021 CKD HGB USE SMARTSET 57320 10/25/202210/25, 08/28/2021, 08/28/2021, Additional history exists BASIC [...] Documents on File Type Date Recorded 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
--- OUTSIDE RECORDS SUMMARY | 2023-06-18 02:56 | External Medical Summary | Summary of Care ---
Author Name Unknown Organization [place] [address] Care Team Providers Care Rectifying Operator Name Role Phone Alex Pinto MD Primary Care Provider + Reason for Visit * Reason Comments eRx-Medication Refill Encounter Details Date Type Department Care Team Description 01/30/2022 Refill General Internal Medicine [facility] [address] [facility] [place] [id number] Alex Pinto MD 200 [facility] [place] [address] Asthma with severity to be determined; COPD, moderate ([facility]) Allergies Active Allergy Reactions Severity Noted Date Comments Valsartan 07/10/2010 Enalapril 05/21/2006 Escitalopram Oxalate Nausea/vomiting 10/11/2009 Nauseated Iodinated Diagnostic Agents Nausea/vomiting 05/2010 IV Contrast Iodine Hives 12/18/2009 IV Contrast Metoprolol Tartrate 11/18/2006 Made pulse low [place] Oil-Black Currant-Vit E 07/10/2010 Verapamil 03/21/2004 Bupropion Hcl 10/30/2009 Makes pt sick in the stomach documented as of this encounter (statuses as of 01/31/2022) Medications Medication Sig Dispensed Refills Start Date [...] the evening. 135 Tablet 3 1 Active Glimepiride 2 MG Oral Tablet (Amaryl) TAKE 1 TABLET BY MOUTH EVERY DAY WITH BREAKFAST 90 Tablet 1 2 Active Spiriva Respimat 1.25 MCG/ACT Inhalation Aerosol Solution (Tiotropium [place] Monohydrate) Inhale by mouth. 0 Active Furosemide [...] TIMES A DAY 12 g 1 1 02/01/20 22 Discontinued documented as of this encounter (statuses as of 01/31/2022) Active Problems Problem Noted Date Type 2 [...] as of this encounter (statuses as of 01/31/2022) Resolved Problems Problem Noted Date Resolved Date [...] Hypoxemia 10/08/2011 10/30/2015 Genetic Sleep Disorder Research Other*[id number] 07/25/2011 05/15/2016 Diverticulitis of colon 07/25/2011 01/06/20 [...] as of this encounter (statuses as of 01/31/2022) Immunizations Name Administration Dates Next Due COVID-19 mRNA, LNP-s, No Pre serve, 2-Dose Series ([employer]) 08/21/2021,12/22/2020,2020 Hepatitis B, 20+ yrs 10/01/2017,04/21/2017,03/20 Pneumococcal [...] Telephone Encounter - Allyson Perales RPh - 01/31/2022 9:47 AM EDT Signed Prescriptions: Disp Refills Ipratropium-Albuterol 20-100 MCG/ACT Inhal*12 g 1 Sig: TAKE 1 PUFF BY MOUTH 4 TIMES A DAYAuthorizing Provider: ALEX PINTO User: ALLYSON PERALES---- documented in this encounter Plan of Treatment Upcoming Encounters Date Type Specialty Care Team Description 02/19/2022 Office Visit Internal Medicine Alex Pinto MD 200 [facility] [place] [address] 06/25/2022 Office Visit Cardiology Hammad Lopez DO [address] [place] [address] Health Maintenance Due Date Last Done Comments Zoster Vaccines (2 of 3) 08/31/2012 07/06/2012 DIABETES-URINE ALBUMIN/CREATININE EVERY 12 MONTHS 07/09/2020 07/09/2019, 07/27/2018, 05/19/2017, Additional history exists COVID-19 Vaccine (4 - Booster for Pfizer series) 01/19/2022 08/21/2021, 12/22/2020, 2020 DIABETES-HGBA1C EVERY 6 MONTHS 02/20/2022 08/23/2021, 03/09/2021, 12/05/2020, Additional history exists CKD PHOS USE SMARTSET 51234 03/09/2022 03/09/2021, 0 03/22/2019 DIABETES-EYE EXAM 03/26/2022 03/26/2021, , 08/10/2019, Additional history exists CKD GFR USE SMARTSET 90472 05/19/202211/19, 11/08/2021, 10/25/2021, Additional history exists Depression Screening, Annual for Pts 12 and Over 08/08/2022 08/08/2021 CKD HGB USE SMARTSET 50873 10/25/202210/25, 08/28/2021, 08/28/2021, Additional history exists BASIC METABOLIC PANEL (BMP) FOR HTN YEARLY 11/19/2022 11/19/2021, 11/08/2021, 10/25/2021, Additional history exists DIABETES-FOOT EXAM 11/19/2022 11/19/2021, 0 12/21/2020, 10/19/2019, Additional history exists O2 ASSESSMENT COMPLETED IN PAST YEAR FOR COPD 12/18/2022 12/18/2021 Dexa Scan 08/08/2025 08/08/2020, 07/, 06/19/2010, Additional history [...] classified documented in this encounter Advance Directives Documents on File Type Date Recorded Patient Blind Teacher Expl 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 Directive Advanced Directive Advanced Directive Care Teams Rectifying Operator Relationship Specialty Start Date End Date Alex Pinto MD [address] [place] [address] PCP - General Internal Medicine 08/04/14 documented as of this encounter
--- OUTSIDE RECORDS SUMMARY | 2023-06-18 02:56 | External Medical Summary | Summary of Care ---
Author Name Unknown Organization [place] [address] Care Team Providers Care Information Scientist Name Role Phone Marcela Pinto MD Primary Care Provider + Reason for Visit * Reason Onset Date Comments Medication Refill 01/11/2022 Encounter Details Date Type Department Care Team Description 01/11/2022 Telephone General Internal Medicine [facility] 200 [facility] [place] [address] Marcela Pinto MD 200 [facility] [address] Medication Refill Allergies Active Allergy Reactions Severity Noted Date Comments Valsartan 07/10/2010 Enalapril 05/21/2006 Escitalopram Oxalate Nausea/vomiting 10/11/2009 Nauseated Iodinated Diagnostic Agents Nausea/vomiting 05/2010 IV Contrast Iodine Hives 12/18/2009 IV Contrast Metoprolol Tartrate 11/18/2006 Made pulse low [place] Oil-Black Currant-Vit E 07/10/2010 Verapamil 03/21/2004 Bupropion Hcl 10/30/2009 Makes pt sick in the stomach documented as of this encounter (statuses as of 01/16/2022) Medications Medication Sig Dispensed Refills Start Date [...] the evening. 135 Tablet 3 10/04/2021 Active Ipratropium-Albutero l 20-100 MCG/ACT Inhalation Aerosol Solution (Combivent Respimat)Indications :Asthma with severity to be determined,COPD, moderate (HCC) TAKE 1 PUFF BY MOUTH 4 TIMES A DAY 12 g 1 10/11/2021 Active Glimepiride 2 MG Oral Tablet (Amaryl) TAKE 1 TABLET BY MOUTH EVERY DAY WITH BREAKFAST 90 Tablet 1 10/26/2021 Active Spiriva Respimat 1.25 MCG/ACT Inhalation Aerosol Solution (Tiotropium [place] Monohydrate) Inhale by mouth. 0 Active Furosemide [...] the morning. 100 Tablet 3 12/27/2021 Active HYDROcodone-Acetamin ophen 5-325 MG Oral TabletIndications:Ge neralized osteoarthritis Take by mouth 1 Tablet every 6 hours as needed for Pain, Mild. 120 Tablet 0 12/31/2021 Active methIMAzole 10 MG Oral Tablet (Tapazole)Indication [...] 01/11/2022 Active metroNIDAZOLE 500 MG Oral TabletIndications:Ac [place] diverticulitis Take by mouth 1 Tablet in the morning AND 1 Tablet at noon AND 1 Tablet before bedtime. 30 Tablet 0 01/11/2022 Active documented as of this encounter (statuses as of 01/16/2022) Active Problems Problem Noted Date Type 2 [...] low 45%, mean 85%, <89% 6:18 hrs, SORNE 18.7 AHP Sleep apnea, obstructive 10/02/2011 Overview: 4 LPM qhs 09/27/11 2 LPM -- low 45%, mean 85%, <89% 6:18 hrs, SOREN 18.7 Refusing CPAP AHP Allergic rhinitis 07/19/2011 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 Asthma with severity to be determined Generalized osteoarthritis documented as of this encounter (statuses as of 01/16/2022) Resolved Problems Problem Noted Date Resolved Date [...] Hypoxemia 10/08/2011 10/30/2015 Genetic Sleep Disorder Research Other*[id number] 07/25/2011 05/15/2016 Diverticulitis of colon 07/25/2011 01/06/20 [...] as of this encounter (statuses as of 01/16/2022) Immunizations Name Administration Dates Next Due COVID-19 mRNA, LNP-s, No Pre serve, 2-Dose Series ([employer]) 08/21/2021,12/22/2020,2020 Hepatitis B, 20+ yrs 10/01/2017,04/21/2017,03/20 Pneumococcal [...] Telephone Encounter - Marcela Pinto MD - 01/11/2022 2:18 PM EDT Patient with history of recurrent diverticulitis and not a surgical candidate. Script sent. Make sure she hydrate well while on Cipro. * Telephone Encounter - CRISTIANO Horta - 01/11/2022 12:40 PM EDT Patient requesting refills for metroNIDAZOLE 500 MG Oral Tablet and Ciprofloxacin HCl 500 MG Oral Tablet (Cipro. Upon chart review, medication is listed as as of 12/28/2021. Please advise if you wish to continue this therapy for the patient. Thank you, Lexie Riley Childcare Administrator Pharmacy Refill Call Center 01/11/2022,12:40 PM documented in this encounter Plan of Treatment Upcoming Encounters Date Type Specialty Care Team Description 02/19/2022 Office Visit Internal Medicine Marcela Pinto MD [address] [place] [address] 06/25/2022 Office Visit Cardiology Hammad Lopez DO [address] [place] [address] Health Maintenance Due Date Last Done Comments Zoster Vaccines (2 of 3) 08/31/2012 07/06/2012 DIABETES-URINE ALBUMIN/CREATININE EVERY 12 MONTHS 07/09/2020 07/09/2019, 07/27/2018, 05/19/2017, Additional history exists COVID-19 Vaccine (4 - Booster for Pfizer series) 01/19/2022 08/21/2021, 12/22/2020, 2020 DIABETES-HGBA1C EVERY 6 MONTHS 02/20/2022 08/23/2021, 03/09/2021, 12/05/2020, Additional history exists CKD PHOS USE SMARTSET 09271 03/09/2022 03/09/2021, 0 03/22/2019 DIABETES-EYE EXAM 03/26/2022 03/26/2021, , 08/10/2019, Additional history exists CKD GFR USE SMARTSET 23201 05/19/202211/19, 11/08/2021, 10/25/2021, Additional history exists Depression Screening, Annual for Pts 12 and Over 08/08/2022 08/08/2021 CKD HGB USE SMARTSET 27562 10/25/202210/25, 08/28/2021, 08/28/2021, Additional history exists BASIC [...] as of this encounter Visit Diagnoses Diagnosis Acute diverticulitis Diverticulitis of colon (without mention of hemorrhage) documented in this encounter Advance Directives Documents on File Type Date Recorded 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
--- OUTSIDE RECORDS SUMMARY | 2023-06-18 02:56 | External Medical Summary | Summary of Care ---
Author Name Unknown Organization [place] [address] Care Team Providers Care Traveling Engineer Name Role Phone Marcela Pinto MD Primary Care Provider + Encounter Details Date Type Department Care Team Description 01/14/2022 Scan Encounter General Internal Medicine [facility] 200 [facility] [place] [address] Marcela Pinot MD 200 [place] [address] <No scans attached> Allergies Active Allergy Reactions Severity Noted Date Comments Valsartan 07/10/2010 Enalapril 05/21/2006 Escitalopram Oxalate Nausea/vomiting 10/11/2009 Nauseated Iodinated Diagnostic Agents Nausea/vomiting 05/2010 IV Contrast Iodine Hives 12/18/2009 IV Contrast Metoprolol Tartrate 11/18/2006 Made pulse low [place] Oil-Black Currant-Vit E 07/10/2010 Verapamil 03/21/2004 Bupropion Hcl 10/30/2009 Makes pt sick in the stomach documented as of this encounter (statuses as of 01/15/2022) Medications Medication Sig Dispensed Refills Start Date [...] Respimat 1.25 MCG/ACT Inhalation Aerosol Solution (Tiotropium [place] Monohydrate) Inhale by mouth. 0 Active Furosemide [...] 01/11/2022 Active metroNIDAZOLE 500 MG Oral TabletIndications:Ac [place] diverticulitis Take by mouth 1 Tablet in the morning AND 1 Tablet at noon AND 1 Tablet before bedtime. 30 Tablet 0 01/11/2022 Active documented as of this encounter (statuses as of 01/15/2022) Active Problems Problem Noted Date Type 2 [...] as of this encounter (statuses as of 01/15/2022) Resolved Problems Problem Noted Date Resolved Date Type 2 diabetes mellitus wit h stage 3a chronic kidney disease 05/21/2021 11/19/2021 Overview: Per CKD protocol Asthma in remission 01/09/2021 03/05/2021 Asthma, mild persistent 01/09/2021 03/05/20 21 Asthma, moderate persistent 01/09/2021/2 01/2021 Asthma, severe [...] Hypoxemia 10/08/2011 10/30/2015 Genetic Sleep Disorder Research Other*[id number] 07/25/2011 05/15/2016 Diverticulitis of colon 07/25/2011 01/06/20 [...] as of this encounter (statuses as of 01/15/2022) Immunizations Name Administration Dates Next Due COVID-19 mRNA, LNP-s, No Pre serve, 2-Dose Series ([employer]) 08/21/2021,12/22/2020,2020 Hepatitis B, 20+ yrs 10/01/2017,04/21/2017,03/20 Pneumococcal [...] Internal Medicine Marcela Pinto MD [address] [place] [address] 06/25/2022 Office Visit Cardiology Hammad Lopez, DO [address] [facility] [place] [address] Health Maintenance Due Date Last Done Comments Zoster Vaccines (2 of 3) 08/31/2012 07/06/2012 DIABETES-URINE ALBUMIN/CREATININE EVERY 12 MONTHS 07/09/2020 07/09/2019, 07/27/2018, 05/19/2017, Additional history exists COVID-19 Vaccine (4 - Booster for Pfizer series) 01/19/2022 08/21/2021, 12/22/2020, 2020 DIABETES-HGBA1C EVERY 6 MONTHS 02/20/2022 08/23/2021, 03/09/2021, 12/05/2020, Additional history exists CKD PHOS USE SMARTSET 32326 03/09/2022 03/09/2021, 0 03/22/2019 DIABETES-EYE EXAM 03/26/2022 03/26/2021, , 08/10/2019, Additional history exists CKD GFR USE SMARTSET 45551 05/19/202211/19, 11/08/2021, 10/25/2021, Additional history exists Depression Screening, Annual for Pts 12 and Over 08/08/2022 08/08/2021 CKD HGB USE SMARTSET 58743 10/25/202210/25, 08/28/2021, 08/28/2021, Additional history exists BASIC [...] Documents on File Type Date Recorded Patient Vapor Coater Expl anation Advanced 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 Directive Advanced Directive Advanced Directive Care Teams Traveling Engineer Relationship Specialty Start Date End Date Marcela Pinto MD [address] [place] [address] PCP - General Internal Medicine 08/04/14 documented as of this encounter
--- OUTSIDE RECORDS SUMMARY | 2023-06-18 02:56 | External Medical Summary | Summary of Care ---
Author Name Unknown Organization [place] [address] Care Team Providers Care Disabilities Services Officer Name Role Phone Marcela Pinto MD Primary Care Provider + Reason for Visit * Reason Onset Date Comments Pre Cert/Prior Auth 01/15/2022 Encounter Details Date Type Department Care Team Description 01/15/2022 Telephone General Internal Medicine [facility] [address] [place] [address] Marcela Pinto MD [address] [place] [address] Pre Cert/Prior Auth Allergies Active Allergy Reactions Severity Noted Date Comments Valsartan 07/10/2010 Enalapril 05/21/2006 Escitalopram Oxalate Nausea/vomiting 10/11/2009 Nauseated Iodinated Diagnostic Agents Nausea/vomiting 05/2010 IV Contrast Iodine Hives 12/18/2009 IV Contrast Metoprolol Tartrate 11/18/2006 Made pulse low [place] Oil-Black Currant-Vit E 07/10/2010 Verapamil 03/21/2004 Bupropion [...] Respimat 1.25 MCG/ACT Inhalation Aerosol Solution (Tiotropium [place] Monohydrate) Inhale by mouth. 0 Active Furosemide [...] 01/11/2022 Active metroNIDAZOLE 500 MG Oral TabletIndications:Ac [place] diverticulitis Take by mouth 1 Tablet in [...] Hypoxemia 10/08/2011 10/30/2015 Genetic Sleep Disorder Research Other*[id number] 07/25/2011 05/15/2016 Diverticulitis of colon 07/25/2011 01/06/20 [...] mRNA, LNP-s, No Pre serve, 2-Dose Series ([employer]) 08/21/2021,12/22/2020,2020 Hepatitis B, 20+ yrs 10/01/2017,04/21/2017,03/20 Pneumococcal [...] Telephone Encounter - Mohinder Landry RN - 01/15/2022 3:35 PM EDT Received response from patient's insurance and prior-authorization has been approved. Called and spoke with Rosa Elena at [facility] pharmacy and informed her of message above. She verbalized understanding. Rosa Elena said the patient picked up the medication yesterday and there was no copay. * Telephone Encounter - Mohinder Landry RN - 01/15/2022 3:28 PM EDT Received fax from [facility] pharmacy stating that promethazine 25 mg tablets are not covered and require prior-authorization. Prior-authorization completed and submitted via Cover Meds along with officenotes from 12/18/2021 and also from 02/07/2015. Awaiting response from patient's insurance. documented in this encounter Plan of Treatment Upcoming Encounters Date Type Specialty Care Team Description 02/19/2022 Office Visit Internal Medicine Marcela Pinto MD [address] [place] [address] 06/25/2022 Office Visit Cardiology Hammad Lopez DO [address] [place] [address] Health Maintenance Due Date Last Done Comments Zoster Vaccines (2 of 3) 08/31/2012 07/06/2012 DIABETES-URINE ALBUMIN/CREATININE EVERY 12 MONTHS 07/09/2020 07/09/2019, 07/27/2018, 05/19/2017, Additional history exists COVID-19 Vaccine (4 - Booster for Pfizer series) 01/19/2022 08/21/2021, 12/22/2020, 2020 DIABETES-HGBA1C EVERY 6 MONTHS 02/20/2022 08/23/2021, 03/09/2021, 12/05/2020, Additional history exists CKD PHOS USE SMARTSET 29517 03/09/2022 03/09/2021, 0 03/22/2019 DIABETES-EYE EXAM 03/26/2022 03/26/2021, , 08/10/2019, Additional history exists CKD GFR USE SMARTSET 03602 05/19/202211/19, 11/08/2021, 10/25/2021, Additional history exists Depression Screening, Annual for Pts 12 and Over 08/08/2022 08/08/2021 CKD HGB USE SMARTSET 10602 10/25/202210/25, 08/28/2021, 08/28/2021, Additional history exists BASIC [...] Documents on File Type Date Recorded 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
--- OUTSIDE RECORDS SUMMARY | 2023-06-18 02:56 | External Medical Summary | Summary of Care ---
Author Name Unknown Organization [place] [address] Care Team Providers Care Rn First Assist Name Role Phone Alex Pinto MD Primary Care Provider + Reason for Visit * Reason Onset Date Comments Medication Refill 02/05/2022 Encounter Details Date Type Department Care Team Description 02/05/2022 Refill General Internal Medicine [facility] [address] [place] [id number] Alex Pinto MD [address] [facility] [place] [address] GENERAL OSTEOARTHROSIS Allergies Active Allergy Reactions Severity Noted Date Comments Valsartan 07/10/2010 Enalapril 05/21/2006 Escitalopram Oxalate Nausea/vomiting 10/11/2009 Nauseated Iodinated Diagnostic Agents Nausea/vomiting 05/2010 IV Contrast Iodine Hives 12/18/2009 IV Contrast Metoprolol Tartrate 11/18/2006 Made pulse low [place] Oil-Black Currant-Vit E 07/10/2010 Verapamil 03/21/2004 Bupropion Hcl 10/30/2009 Makes pt sick in the stomach documented as of this encounter (statuses as of 02/05/2022) Medications Medication Sig Dispensed Refills Start Date [...] :Asthma with severity to be determined,COPD, moderate ([facility]) USE ONE NEBULIZER TREATMENT TWICE A DAY DIRECTED FOR WORSENING ASTHMA. J45.909, J44.9 225 mL 1 9 Active Albuterol Sulfate (VENTOLIN HFA) 108 (90 Base) MCG/ACT AERS Inhale 2 Puffs by mouth 2 times a day. 0 0 Active Lancets MISCIndications:Typ e 2 diabetes mellitus with hemoglobin A1c goal of less than 7.0% ([facility]) Use as directed. USE TO TEST [...] Oral Tablet Extended Release 24 Hour (toPROL XL)Indications:Diamond Powder Mixer akin heart failure with reduced ejection [...] Respimat 1.25 MCG/ACT Inhalation Aerosol Solution (Tiotropium [place] Monohydrate) Inhale by mouth. 0 Active Furosemide [...] 0 2 Active metroNIDAZOLE 500 MG Oral TabletIndications:A cute diverticulitis Take by mouth 1 Tablet in the morning AND 1 Tablet at noon AND 1 Tablet before bedtime. 30 Tablet 0 2 Active Ipratropium-Albuter ol 20-100 [...] for Pain, Mild. 120 Tablet 0 2 02/06/20 22 Discontinu ed(Refill) documented as of this encounter (statuses as of 02/05/2022) Active Problems Problem Noted Date Type 2 [...] as of this encounter (statuses as of 02/05/2022) Resolved Problems Problem Noted Date Resolved Date [...] Hypoxemia 10/08/2011 10/30/2015 Genetic Sleep Disorder Research Other*[id number] 07/25/2011 05/15/2016 Diverticulitis of colon 07/25/2011 01/06/20 [...] as of this encounter (statuses as of 02/05/2022) Immunizations Name Administration Dates Next Due COVID-19 mRNA, LNP-s, No Pre serve, 2-Dose Series (Notegraphy) 08/21/2021,12/22/2020,2020 Hepatitis B, 20+ yrs 10/01/2017,04/21/2017,03/20 Pneumococcal [...] Telephone Encounter - Alex Pinto MD - 02/05/2022 2:31 PM EDT Signed Prescriptions: Disp Refills HYDROcodone-Acetaminophen 5-325 MG Oral Ta*120 Ta*0 Sig: Take by mouth 1 Tablet every 6 hours as needed for Pain, Mild. Authorizing Provider: ALEX PINTO * Telephone Encounter - Angelina Linder LPN - 02/05/2022 11:20 AM EDT Pending Prescriptions: Disp Refills HYDROcodone-Acetaminophen 5-325 MG Oral T*120 Ta*0 Sig: Take by mouth 1 Tablet every 6 hours as needed for Pain, Mild. 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 Allergic rhinitis J30.9 Nocturnal hypoxia G47.34 Sleep apnea, obstructive G47.33 HTN, goal below 140/90 I10 Hyperlipidemia with target LDL less than 100 E78.5 Controlled substance agreement signed Z79.899 Type 2 diabetes mellitus with hemoglobin A1c goal of less than 7.5% ([facility]) E11.9 Elevated plasma metanephrines R79.89 Irritable bowel syndrome with constipation K58.1 HECTOR (generalized anxiety disorder) F41.1 COPD, group B, 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 ([facility]) J44.9 Morbid obesity with BMI of 40.0-44.9, adult ([facility]) E66.01, Z68.41 Gastro-esophageal reflux disease without esophagitis K21.9 Paroxysmal atrial fibrillation ([facility]) I48.0 Chronic systolic heart failure ([facility]) I50.22 Pulmonary HTN ([facility]) I27.20 Chronic hypoxemic respiratory failure ([facility]) J96.11 Chronic kidney disease, stage 3a ([facility]) N18.31 Subclinical hyperthyroidism E05.90 History of ESBL E. coli infection Z86.19 Type 2 diabetes mellitus with stage 3a chronic kidney disease, without long- term current use ofinsulin ([facility]) E11.22, N18.31 Labs: Lab Results Component Value Date/Time CREATININE - [facility] 0.9 11/19/2021 03:29 PM CREATININE - [facility] 1.0 05/27/2020 04:51 PM CREATININE TIM 221 08/26/2019 02:57 PM CREATININE TIM - [facility] 75 04/24/2021 01:21 PM CREATININE, 24 HOUR URINE - [facility] 1.106 02/26/2017 09:11 AM CREATININE, RANDOM URINE - [facility] 128 07/09/2019 01:57 PM CREATININE-OUTSIDE LAB 1.08 (A) 06/12/2021 12:00 AM Lab Results Component Value Date/Time POTASSIUM - [facility] 4.7 11/19/2021 03:29 PM POTASSIUM - [facility] 4.0 05/27/2020 04:51 [...] Component Value Date/Time ALT - [facility] 11 08/07/2021 09:05 AM ALT - [facility] 15 05/27/2020 04:51 [...] Visit Internal Medicine Alex Pinto MD [address] [place] [address] 06/25/2022 Office Visit Cardiology Hammad Lopez, [address] [place] [address] Health Maintenance Due Date Last Done Comments Zoster Vaccines (2 of 3) 08/31/2012 07/06/2012 DIABETES-URINE ALBUMIN/CREATININE EVERY 12 MONTHS 07/09/2020 07/09/2019, 07/27/2018, 05/19/2017, Additional history exists COVID-19 Vaccine (4 - Booster for Pfizer series) 01/19/2022 08/21/2021, 12/22/2020, 2020 DIABETES-HGBA1C EVERY 6 MONTHS 02/20/2022 08/23/2021, 03/09/2021, 12/05/2020, Additional history exists CKD PHOS USE SMARTSET 98769 03/09/2022 03/09/2021, 0 03/22/2019 DIABETES-EYE EXAM 03/26/2022 03/26/2021, , 08/10/2019, Additional history exists CKD GFR USE SMARTSET 83053 05/19/202211/19, 11/08/2021, 10/25/2021, Additional history exists Depression Screening, Annual for Pts 12 and Over 08/08/2022 08/08/2021 CKD HGB USE SMARTSET 23664 10/25/202210/25, 08/28/2021, 08/28/2021, Additional history exists BASIC [...] Documents on File Type Date Recorded 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
--- OUTSIDE RECORDS SUMMARY | 2023-06-18 02:56 | External Medical Summary | Summary of Care ---
Author Name Unknown Organization [place] [address] Care Team Providers Care Paper Mill Superintendent Name Role Phone Marcela Pinto MD Primary Care Provider + Reason for Visit * Reason Onset Date Comments Pre Cert/Prior Auth 01/15/2022 Encounter Details Date Type Department Care Team Description 01/15/2022 Telephone General Internal Medicine [facility] [address] [place] [address] Marcela Pinto MD [address] [facility] [place] [address] Pre Cert/Prior Auth Allergies Active Allergy Reactions Severity Noted Date Comments Valsartan 07/10/2010 Enalapril 05/21/2006 Escitalopram Oxalate Nausea/vomiting 10/11/2009 Nauseated Iodinated Diagnostic Agents Nausea/vomiting 05/2010 IV Contrast Iodine Hives 12/18/2009 IV Contrast Metoprolol Tartrate 11/18/2006 Made pulse low [place] Oil-Black Currant-Vit E 07/10/2010 Verapamil 03/21/2004 Bupropion [...] Respimat 1.25 MCG/ACT Inhalation Aerosol Solution (Tiotropium [place] Monohydrate) Inhale by mouth. 0 Active Furosemide [...] 01/11/2022 Active metroNIDAZOLE 500 MG Oral TabletIndications:Ac mentasta diverticulitis Take by mouth 1 Tablet in [...] Hypoxemia 10/08/2011 10/30/2015 Genetic Sleep Disorder Research Other*[id number] 07/25/2011 05/15/2016 Diverticulitis of colon 07/25/2011 01/06/20 [...] mRNA, LNP-s, No Pre serve, 2-Dose Series (Domobios) 08/21/2021,12/22/2020,2020 Hepatitis B, 20+ yrs 10/01/2017,04/21/2017,03/20 Pneumococcal [...] Called and spoke with Rosa Elena at [facility] pharmacy and informed her of message above. She verbalized understanding. Rosa Elena said the patient picked up the medication yesterday and there was no copay. * Telephone Encounter - Mohinder Landry RN - 01/15/2022 3:28 PM EDT Received fax from [facility] pharmacy stating that promethazine 25 mg tablets are not covered and require prior-authorization. Prior-authorization completed and submitted via Cover Meds along with officenotes from 12/18/2021 and also from 02/07/2015. Awaiting response from patient's insurance. documented in this encounter Plan of Treatment Upcoming Encounters Date Type Specialty Care Team Description 02/19/2022 Office Visit Internal Medicine Marcela Pinto MD [address] [place] [address] 06/25/2022 Office Visit Cardiology Hammad Lopez DO [address] [place] [address] Health Maintenance Due Date Last Done Comments Zoster Vaccines (2 of 3) 08/31/2012 07/06/2012 DIABETES-URINE ALBUMIN/CREATININE EVERY 12 MONTHS 07/09/2020 07/09/2019, 07/27/2018, 05/19/2017, Additional history exists COVID-19 Vaccine (4 - Booster for Pfizer series) 01/19/2022 08/21/2021, 12/22/2020, 2020 DIABETES-HGBA1C EVERY 6 MONTHS 02/20/2022 08/23/2021, 03/09/2021, 12/05/2020, Additional history exists CKD PHOS USE SMARTSET 44347 03/09/2022 03/09/2021, 0 03/22/2019 DIABETES-EYE EXAM 03/26/2022 03/26/2021, , 08/10/2019, Additional history exists CKD GFR USE SMARTSET 83443 05/19/202211/19, 11/08/2021, 10/25/2021, Additional history exists Depression Screening, Annual for Pts 12 and Over 08/08/2022 08/08/2021 CKD HGB USE SMARTSET 61536 10/25/202210/25, 08/28/2021, 08/28/2021, Additional history exists BASIC [...] Documents on File Type Date Recorded 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
--- OUTSIDE RECORDS SUMMARY | 2023-06-18 02:56 | External Medical Summary | Summary of Care ---
Author Name Unknown Organization [place] [address] Care Team Providers Care Delineator Name Role Phone Marcela Pinto MD Primary Care Provider + Reason for Visit * Reason Comments Follow Up Encounter Details Date Type Department Care Team Description 12/27/2021 Office Visit Cardiology, [facility] [address] [facility] [place] [address] Hammad Lopez, [address] [facility] [place] [address] Chronic systolic heart failure (HCC)*; NICM (nonischemic cardiomyopathy) (HCC); Presence of Watchman left atrial appendage closure device; Permanent atrial fibrillation (HCC); Dyslipidemia; Nonrheumatic mitral valve regurgitation Allergies Active Allergy Reactions Severity Noted Date Comments Valsartan 07/10/2010 Enalapril 05/21/2006 Escitalopram Oxalate Nausea/vomiting 10/11/2009 Nauseated Iodinated Diagnostic Agents Nausea/vomiting 05/2010 IV Contrast Iodine Hives 12/18/2009 IV Contrast Metoprolol Tartrate 11/18/2006 Made pulse low [place] Oil-Black Currant-Vit E 07/10/2010 Verapamil 03/21/2004 Bupropion Hcl 10/30/2009 Makes pt sick in the stomach documented as of this encounter (statuses as of 12/27/2021) Medications Medication Sig Dispensed Refills Start Date [...] RESCUE KIT: Take for Colds. 0 Active HumanCloud System Device Use as directed. Tests three [...] Oral Tablet Extended Release 24 Hour (toPROL XL)Indications:Inspector Scales akin heart failure with reduced ejection fraction [...] Respimat 1.25 MCG/ACT Inhalation Aerosol Solution (Tiotropium [place] Monohydrate) Inhale by mouth. 0 Active Furosemide [...] the morning. 90 Tablet 3 2 Active HYDROcodone-Acetami nophen 5-325 MG Oral TabletIndications:G eneralized osteoarthritis Take by mouth 1 Tablet every 6 hours as needed for Pain, Mild. 120 Tablet 0 2 Active Ciprofloxacin HCl 500 MG Oral Tablet (Cipro)Indications: Acute diverticulitis Take by mouth 1 Tablet in the morning AND 1 Tablet before bedtime. Do all this for 10 days. 20 Tablet 0 2 12/29/19 22 Active metroNIDAZOLE 500 MG Oral TabletIndications:A cute diverticulitis Take by mouth 1 Tablet in the morning AND 1 Tablet at noon AND 1 Tablet before bedtime. Do all this for 10 days. 30 Tablet 0 2 12/29/19 22 Active Ketoconazole 2 % External Cream [...] the morning. 100 Tablet 3 2 Active Atorvastatin Calcium 80 MG Oral Tablet (Lipitor)Indication s:Hyperlipidemia with target LDL less than 100,Chronic systolic heart failure (HCC),Paroxysmal atrial fibrillation (HCC),Chronic 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),NICM (nonischemic cardiomyopathy) (HCC),Chronic atrial fibrillation (HCC),Hospital discharge follow-up,Presence of Watchman left atrial appendage closure device Take 1 Tab by mouth daily. 90 Tab 3 1 12/28/19 22 Discontinu ed(Medicat ion/Dose Changed) Spironolactone 25 MG Oral Tablet (Aldactone) Take 0.5 Tabs by mouth once a day on Friday, Friday, and Friday only. 30 Tab 3 1 12/28/19 22 Discontinu ed(Refill) documented as of this encounter (statuses as of 12/27/2021) Active Problems Problem Noted Date Type 2 [...] as of this encounter (statuses as of 12/27/2021) Resolved Problems Problem Noted Date Resolved Date [...] Hypoxemia 10/08/2011 10/30/2015 Genetic Sleep Disorder Research Other*[id number] 07/25/2011 05/15/2016 Diverticulitis of colon 07/25/2011 01/06/20 [...] as of this encounter (statuses as of 12/27/2021) Immunizations Name Administration Dates Next Due COVID-19 mRNA, LNP-s, No Pre serve, 2-Dose Series (Pfizer) 08/21/2021,12/22/2020,2020 Hepatitis B, 20+ yrs 10/01/2017,04/21/2017,03/20 Pneumococcal [...] Date Never Smoker Smokeless Tobacco: Never Used Tobacco Cessation:Counseling Given: No Alcohol Use Standard Drinks/Week Comments No 0 [...] Sign Reading Time Taken Comments Blood Pressure 112/60 12/27/2021 3:55 PM EDT Pulse 96 12/27/2021 3:55 PM EDT Temperature 36 C (96.8 F) 12/27/2021 3:55 PM EDT Respiratory Rate 18 12/27/2021 3:55 PM EDT Oxygen Saturation - - Inhaled Oxygen Concentration - - Weight 114.3 kg (251 lb 14.4 oz) 12/27/2021 3:55 PM EDT Height - - Body Mass Index 41.92 11/19/2021 2:45 PM EST documented in this encounter Progress Notes * Hammad Lopez, DO - 12/27/2021 4:05 PM EDT SUBJECTIVE: Patient returns today for follow-up of chronic heart failure with reduced ejection fraction, nonischemic cardiomyopathy, and permanent atrial fibrillation status post watchman device implantation. Carvedilol transition to metoprolol due to hypotension and AFib with RVR since most recent office visit with the undersigned March 09, 2020. Followed by Venancio PEMBERTON in the interim. Feeling well from a cardiovascular perspective. Weight is stable. Reports musculoskeletal discomfort coinciding with titration of atorvastatin to 80 mg daily. Denies orthopnea or PND. Chronic dyspneaon exertion and functional capacity unchanged. Continues to live independently with the help of herdaughter and son. No palpitations, lightheadedness, dizziness, syncope, or near syncope. Toleratingother medications listed below. No interim hospitalizations. ROS: All others negative other than those noted in the HPI. 3 Day Zio monitor report 11/12/2021: Atrial Fibrillation occurred continuously (100% burden), ranging from 44- 153 bpm (avg of 78 bpm). Isolated VEs were frequent (17.5%, 82773), VE Couplets were rare (<1.0%, 1152), and [...] is 44mm Hg. 2D echo report summary [facility] 02/26/21: LV systolic function is [...] less than 7.5% ([facility]) E11.9 Elevated plasma metanephrines R79.89 Irritable bowel syndrome with constipation K58.1 HECTOR (generalized anxiety disorder) F41.1 COPD, group B, 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 ([facility]) J44.9 Morbid obesity with BMI of 40.0-44.9, adult ([facility]) E66.01, Z68.41 Gastro-esophageal reflux disease without esophagitis K21.9 Paroxysmal atrial fibrillation ([facility]) I48.0 Chronic systolic heart failure ([facility]) I50.22 Pulmonary HTN ([facility]) I27.20 Chronic hypoxemic respiratory failure ([facility]) J96.11 Chronic kidney disease, stage 3a ([facility]) N18.31 Subclinical hyperthyroidism E05.90 History of ESBL E. coli infection Z86.19 Type 2 diabetes mellitus with stage 3a chronic kidney disease, without long- term current use ofinsulin ([facility]) E11.22, N18.31 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 Tobacco Use Smoking status: Never [...] IV Contrast Metoprolol Tartrate Made pulse low [place] Oil-Black Currant-Vit E Verapamil Wellbutrin [Bupropion Hcl] [...] day . RESCUE KIT: Take for Colds. HumanCloud System Device Use as directed. Tests three times daily/E11.9 [facility] Glucose Test In Vitro Strip (Glucose Blood) Test as directed. Tests three times daily Aspirin 81 MG Oral Tablet Delayed Release Take 81 mg by mouth daily. Zafirlukast 20 MG Oral Tablet (Accolate) TAKE 1 TABLET BY MOUTH EVERY DAY 90 Tab 3 Atorvastatin Calcium 80 MG Oral Tablet (Lipitor) Take 1 Tab by mouth daily. 90 Tab 3 Spironolactone 25 MG Oral Tablet (Aldactone) Take 0.5 Tabs by mouth once a day on Friday, Friday, and Friday only. 30 Tab 3 methIMAzole 10 MG Oral Tablet (Tapazole) TAKE 1 TABLET BY MOUTH EVERY DAY 90 Tablet 1 Omeprazole 20 MG Oral [...] tab in the evening. 135 Tablet 3 Ipratropium-Albuterol 20-100 MCG/ACT Inhalation Aerosol Solution (Combivent Respimat) TAKE 1 PUFF BY MOUTH 4 TIMES A DAY 12 g 1 Glimepiride 2 MG Oral Tablet (Amaryl) TAKE 1 TABLET BY MOUTH EVERY DAY WITH BREAKFAST 90 Tablet1 Spiriva Respimat 1.25 MCG/ACT Inhalation Aerosol Solution (Tiotropium [place] Monohydrate) Inhale by mouth. Furosemide 40 MG Oral Tablet (Lasix) Take 1.5 Tablets by mouth 2 times a day. 270 Tablet 1 Promethazine HCl 25 MG Oral Tablet (Phenergan) TAKE 1 TABLET BY MOUTH EVERY 6 HOURS NEEDED FOR NAUSEA 60 Tablet 2 Lisinopril 2.5 MG Oral Tablet (Prinivil) Take by mouth 1 Tablet in the morning. 90 Tablet 3 HYDROcodone-Acetaminophen 5-325 MG Oral Tablet Take by mouth 1 Tablet every 6 hours as needed for Pain, Mild. 120 Tablet 0 Ciprofloxacin HCl 500 MG Oral Tablet (Cipro) Take by mouth 1 Tablet in the morning AND 1 Tabletbefore bedtime. Do all this for 10 days. 20 Tablet 0 metroNIDAZOLE 500 MG Oral Tablet Take by mouth 1 Tablet in the morning AND 1 Tablet at noon AND1 Tablet before bedtime. Do all this for 10 days. 30 Tablet 0 Ketoconazole 2 % External Cream APPLY TO GROIN AREA TWICE A DAY 60 g 11 Zoster Vac Recomb Adjuvanted 50 MCG/0.5ML Intramuscular [...] 6.6 - 11.1 fL OBJECTIVE/PHYSICAL EXAMINATION: BP 112/60 (BP Site: Left Arm, BP Position: Sitting, BP Cuff Size: Large) | Pulse 96 | Temp 36 C (96.8 F) | Resp 18 | Wt 114.3 kg (251 lb 14.4 oz) | BMI 41.92 kg/m | BSA 2.29 m General: NAD, AAO x3, well nourished. [...] No masses or organomegaly. No abdominal bruits.Extremities: No clubbing, cyanosis, or edema. Pulses: radial=2/4, Dorsalis pedis =2/4, posterior tibial=2/4. Neuro: No focal deficits. ASSESSMENT: 1. Chronic heart failure with reduced ejection fraction -compensated with Class 3 functional capacity 2. Nonischemic cardiomyopathy -cardiac catheterization performed November 2020 in [place] demonstrating mild nonobstructive coronary disease. 3. Chronic rate controlled atrial fibrillation s/p watchman device implant 4. Moderate mitral regurgitation 5. Dyslipidemia - patient reports myalgia associated with 80 mg Lipitor 6. Severe oxygen-dependent COPD with chronic hypercapnia 7. Hyperthyroid on tapazole - dose recently reduced PLAN: Reduce atorvastatin to 40 mg daily. Continue other cardiovascular medications as listed above. Assess daily weight. Diuretic protocol reviewed: Instructed to take an additional 40 mg of Lasix inthe afternoon if weight increases more than 2 lb in a 48 hour period, or 5 lb in 1 week. Sodium restriction advised. All questions answered to patient's satisfaction. Follow Up: Return in about 4 months (around 04/28/2022). Hammad Lopez DO, FACC Associate Cardiology - Connie Doran documented in this encounter Nursing Notes * Ida Meza RN - 12/27/2021 3:59 PM EDT Examination Room: Name: Nina Harrington Date of : (1940). Reason for Visit: Follow up Interim Hospitalization(s): No Problems/Concerns: Weight stable. Denies increase shortness of breath or swelling. Is noting increase myalgias, questions atorvastatin. Chest Pain/SOB: Denies changes. [facility] Discussed: Not applicable [...] Visit Internal Medicine Marcela Pinto MD [address] [facility] [address] 06/25/2022 Office Visit Cardiology Hammad Lopez DO [address] [facility] [place] [address] Health Maintenance Due Date Last Done Comments Zoster Vaccines (2 of 3) 08/31/2012 07/06/2012 DIABETES-URINE ALBUMIN/CREATININE EVERY 12 MONTHS 07/09/2020 07/09/2019, 07/27/2018, 05/19/2017, Additional history exists COVID-19 Vaccine (4 - Booster for Pfizer series) 01/19/2022 08/21/2021, 12/22/2020, 2020 DIABETES-HGBA1C EVERY 6 MONTHS 02/20/2022 08/23/2021, 03/09/2021, 12/05/2020, Additional history exists CKD PHOS USE SMARTSET 75197 03/09/2022 03/09/2021, 0 03/22/2019 DIABETES-EYE EXAM 03/26/2022 03/26/2021, , 08/10/2019, Additional history exists CKD GFR USE SMARTSET 31466 05/19/202211/19, 11/08/2021, 10/25/2021, Additional history exists Depression Screening, Annual for Pts 12 and Over 08/08/2022 08/08/2021 CKD HGB USE SMARTSET 98933 10/25/202210/25, 08/28/2021, 08/28/2021, Additional history exists BASIC [...] failure (HCC)- Primary Chronic systolic heart failure NICM (nonischemic cardiomyopathy) (HCC) Other primary cardiomyopathies Presence of Watchman left atrial appendage closure device Permanent atrial fibrillation (HCC) Atrial fibrillation Dyslipidemia Other and unspecified hyperlipidemia Nonrheumatic mitral valve regurgitation documented in this encounter Advance Directives Documents on File Type Date Recorded Patient 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
--- OUTSIDE RECORDS SUMMARY | 2023-06-18 02:57 | External Medical Summary | Summary of Care ---
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 Patient states she has be getting the cold sweat x 2 months. Encounter Details Date Type Department Care Team Description 11/19/2021 Office Visit General Internal [facility] [address] [facility] [place] [address] David Duke PA-C [address] [facility] [place] [address] Subclinical hyperthyroidism*; Iron deficiency anemia, unspecified iron deficiency anemia type; COPD, group B, 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 ([facility]); Chronic hypoxemic respiratory failure ([facility]); Pulmonary HTN ([facility]); Sleep apnea, obstructive; Chronic systolic heart failure ([facility]); Paroxysmal atrial fibrillation ([facility]); Type 2 diabetes mellitus with stage 3a chronic kidney disease, without long-term current use of insulin ([facility]); Type 2 diabetes mellitus with hemoglobin A1c goal of less than 7.5% ([facility]); Hyperlipidemia with target LDL less than 100; HTN, goal below 140/90; Gastro-esophageal reflux disease without esophagitis; Morbid obesity with BMI of 40.0-44.9, adult ([facility]); DM type 2 nursing care encounter ([facility]) Allergies Active Allergy Reactions Severity Noted Date Comments Valsartan 07/10/2010 Enalapril 05/21/2006 Escitalopram Oxalate Nausea/vomiting 10/11/2009 Nauseated Iodinated Diagnostic Agents Nausea/vomiting 05/2010 IV Contrast Iodine Hives 12/18/2009 IV Contrast Metoprolol Tartrate 11/18/2006 Made pulse low [place] Oil-Black Currant-Vit E 07/10/2010 Verapamil 03/21/2004 Bupropion Hcl 10/30/2009 Makes pt sick in the stomach documented as of this encounter (statuses as of 11/19/2021) Medications Medication Sig Dispensed Refills Start Date [...] mg by mouth daily. 0 02/05/2021 Active Advair HFA 230-21 MCG/ACT Inhalation Aerosol (fluticasone-[place]met[place] rol) Inhale by mouth 2 Puffs 2 times a day . 0 04/09/2021 Active Zafirlukast 20 MG Oral Tablet (Accolate)Indication s:Asthma with severity to be determined TAKE 1 TABLET BY MOUTH EVERY DAY 90 Tab 3 05/18/2021 Active Atorvastatin Calcium 80 MG Oral Tablet (Lipitor)Indications :Hyperlipidemia with target LDL less than 100,Chronic systolic heart failure ([facility]),Paroxysmal atrial fibrillation ([facility]),Chronic 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 ([facility]),NICM (nonischemic cardiomyopathy) ([facility]),Chronic atrial fibrillation ([facility]),Hospital discharge follow-up,Presence of Watchman left atrial appendage closure device Take 1 Tab by mouth daily. 90 Tab 3 06/26/2021 Active Spironolactone 25 MG Oral Tablet (Aldactone) Take 0.5 Tabs by mouth once a day on Friday, Friday, and Friday only. 30 Tab 3 07/13/2021 Active Zoster Vac Recomb Adjuvanted 50 MCG/0.5ML Intramuscular Suspension Reconstituted (Shingrix) Inject 0.5 mL into a large muscle now and repeat dose in 60 to 180 days 1 Each 1 08/09/2021 Active methIMAzole 10 MG Oral Tablet (Tapazole)Indication s:Hyperthyroidism TAKE 1 TABLET BY MOUTH EVERY DAY 90 Tablet 1 09/05/2021 Active Omeprazole 20 MG Oral Capsule Delayed [...] the evening. 135 Tablet 3 10/04/2021 Active HYDROcodone-Acetamin ophen 5-325 MG Oral TabletIndications:Ge neralized osteoarthritis Take 1 Tablet by mouth every 6 hours as needed for Pain, Mild. 120 Tablet 0 10/14/2021 Active Ipratropium-Albutero l 20-100 MCG/ACT Inhalation Aerosol Solution (Combivent Respimat)Indications :Asthma with severity to be determined,COPD, moderate (HCC) TAKE 1 PUFF BY MOUTH 4 TIMES A DAY 12 g 1 10/11/2021 Active Glimepiride 2 MG Oral Tablet (Amaryl) TAKE 1 TABLET BY MOUTH EVERY DAY WITH BREAKFAST 90 Tablet 1 10/26/2021 Active Spiriva Respimat 1.25 MCG/ACT Inhalation Aerosol Solution (Tiotropium [place] Monohydrate) Inhale by mouth. 0 Active Furosemide 40 MG Oral Tablet (Lasix)Indications:C hronic systolic heart failure (HCC),Paroxysmal atrial fibrillation (HCC),Chronic 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),NICM (nonischemic cardiomyopathy) (HCC),Chronic atrial fibrillation (HCC),Hospital discharge follow-up,Presence of Watchman left atrial appendage closure device Take 1.5 Tablets by mouth 2 times a day. 270 Tablet 1 10/31/2021 Active Promethazine HCl 25 MG Oral Tablet (Phenergan)Indicatio ns:Generalized osteoarthritis TAKE 1 TABLET BY MOUTH EVERY 6 HOURS NEEDED FOR NAUSEA 60 Tablet 2 11/07/2021 Active Lisinopril 2.5 MG Oral Tablet (Prinivil)Indication s:Paroxysmal atrial fibrillation (HCC),Chronic systolic heart failure (HCC) Take by mouth 1 Tablet in the morning. 90 Tablet 3 11/12/2021 Active documented as of this encounter (statuses as of 11/19/2021) Active Problems Problem Noted Date Type 2 [...] as of this encounter (statuses as of 11/19/2021) Resolved Problems Problem Noted Date Resolved Date [...] Hypoxemia 10/08/2011 10/30/2015 Genetic Sleep Disorder Research Other*[id number] 07/25/2011 05/15/2016 Diverticulitis of colon 07/25/2011 01/06/20 [...] as of this encounter (statuses as of 11/19/2021) Immunizations Name Administration Dates Next Due COVID-19 mRNA, LNP-s, No Pre serve, 2-Dose Series (BIOeCON) 08/21/2021,12/22/2020,2020 Hepatitis B, 20+ yrs 10/01/2017,04/21/2017,03/20 Pneumococcal [...] Sign Reading Time Taken Comments Blood Pressure 110/62 11/19/2021 2:45 PM EST Pulse 77 11/19/2021 2:45 PM EST Temperature 36.9 C (98.4 F) 11/19/2021 2:45 PM ES T Respiratory Rate - - Oxygen Saturation 98% 11/19/2021 2:45 PM EST Inhaled Oxygen Concentration - - Weight 115.9 kg (255 lb 8 oz) 11/19/2021 2:45 PM EST Height 165.1 cm (5' 5") 11/19/2021 2:45 PM EST Body Mass Index 42.52 11/19/2021 2:45 PM EST documented in this encounter Patient Instructions * Patient Instructions* Amanda RussoNICOL - 11/19/2021 2:50 PM EST Diabetes: Keeping Feet Healthy Inspect [...] calluses yourself. Talk to your doctor or tire buster (a doctor who specializes in foot care) [...] Shoes and Socks Fit Any pair of shoesnew or oldshould feel comfortable as soon as you put them on. There shouldnt be any rubbing when you walk. Wear the right shoe for any activity. For instance, a running shoeis designed to keep your feet injury-free while jogging. Buy shoes at the end of the day, when yourfeet are larger. Make sure they provide support without feeling too loose. Make sure your socks fit, too. Wear soft, seamless, well-padded socks for activity. [...] keep the area clean. Then call your doctorespecially if the area doesnt appear to be healing. [phone] [employer], [address] [place] [address], [place] [address]. All rights reserved. This information is not intended as a substitute for professional medical care. Always follow your healthcare professional's instructions. Diabetes: Keeping Feet Healthy Inspect your feet [...] calluses yourself. Talk to your doctor or tire buster (a doctor who specializes in foot care) [...] Shoes and Socks Fit Any pair of shoesnew or oldshould feel comfortable as soon as you put them on. There shouldnt be any rubbing when you walk. Wear the right shoe for any activity. For instance, a running shoeis designed to keep your feet injury-free while jogging. Buy shoes at the end of the day, when yourfeet are larger. Make sure they provide support without feeling too loose. Make sure your socks fit, too. Wear soft, seamless, well-padded socks for activity. [...] keep the area clean. Then call your doctorespecially if the area doesnt appear to be healing. [phone] [employer], [address] [place], [place] [id number]. All rights reserved. This information is not intended as a substitute for professional medical care. Always follow your healthcare professional's instructions. documented in this encounter Progress Notes * David Duke PA-C - 11/19/2021 2:58 PM EST Subjective: Nina Harrington is a 80 year old female. Chief Complaint Patient presents with Follow Up Pt c/o 3 month follow up. Patient states she has be getting the cold sweat x 2 months. HPI: 80 y/o female with HTN, HLD, DM II, IBS, HECTOR, COPD, asthma, sleep apnea, GERD, heart failure, CKD III, pAF, hypoxic respiratory failure seen today in follow up. Notes cold sweats for the last two months where she feels hot and sweaty. Will typically feel warmer than everyone in room. Still on methimazole for sublinical hyperthyroidism. Follows with [facility] endocrinology. Denies fever, chills,myalgias, dysuria, abdominal pain, cough, sinus congestion. Recent increase in diuretics by cardiology. Breathing better and weight back down. Now on Lasix 60 mg BID. Following with [facility] pulm. PMH: Patient Active Problem List Diagnosis Code [...] less than 7.5% ([facility]) E11.9 Hypercalcemia E83.52 Elevated plasma metanephrines R79.89 Irritable bowel syndrome with constipation K58.1 Ischemic colitis ([facility]) K55.9 HECTOR (generalized anxiety disorder) F41.1 COPD, group B, 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 ([facility]) J44.9 Morbid obesity with BMI of 40.0-44.9, adult ([facility]) E66.01, Z68.41 Gastro-esophageal reflux disease without esophagitis K21.9 Paroxysmal atrial fibrillation ([facility]) I48.0 Chronic systolic heart failure ([facility]) I50.22 Pulmonary HTN ([facility]) I27.20 Chronic hypoxemic respiratory failure ([facility]) J96.11 Type 2 diabetes mellitus with stage 3a chronic kidney disease ([facility]) E11.22, N18.31 Chronic kidney disease, stage 3a ([facility]) N18.31 Subclinical hyperthyroidism E05.90 History of ESBL E. coli infection Z86.19 Current Outpatient Medications Medication Sig Dispense Refill [...] day . RESCUE KIT: Take for Colds. [employer] Voice System Device Use as directed. [...] Friday, and Friday only. 30 Tab 3 Zoster Vac Recomb Adjuvanted 50 MCG/0.5ML Intramuscular Suspension Reconstituted (Shingrix) Inject 0.5 mL into a large muscle now and repeat dose in 60 to 180 days 1 Each 1 methIMAzole 10 MG Oral Tablet (Tapazole) TAKE [...] tab in the evening. 135 Tablet 3 HYDROcodone-Acetaminophen 5-325 MG Oral Tablet Take 1 Tablet by mouth every 6 hours as needed for Pain, Mild. 120 Tablet 0 Ipratropium-Albuterol 20-100 MCG/ACT Inhalation Aerosol Solution (Combivent Respimat) TAKE 1 PUFF BY MOUTH 4 TIMES A DAY 12 g 1 Glimepiride 2 MG Oral Tablet (Amaryl) TAKE 1 TABLET BY MOUTH EVERY DAY WITH BREAKFAST 90 Tablet1 Spiriva Respimat 1.25 MCG/ACT Inhalation Aerosol Solution (Tiotropium [place] Monohydrate) Inhale by mouth. Furosemide 40 MG Oral Tablet (Lasix) Take 1.5 Tablets by mouth 2 times a day. 270 Tablet 1 Promethazine HCl 25 MG Oral Tablet (Phenergan) TAKE 1 TABLET BY MOUTH EVERY 6 HOURS NEEDED FOR NAUSEA 60 Tablet 2 Lisinopril 2.5 MG Oral Tablet (Prinivil) Take by mouth 1 Tablet in the morning. 90 Tablet 3 Advair HFA 230-21 MCG/ACT Inhalation Aerosol (fluticasone-Salmeterol) Inhale by mouth 2 Puffs 2times a day . (Patient not taking: Reported on 11/19/2021 ) No current facility-administered medications for this visit. Review of patient's allergies indicates: Allergen Reactions Diovan [Valsartan] Enalapril Escitalopram Oxalate Nausea/vomiting Nauseated Iodinated Diagnostic Agents Nausea/vomiting IV Contrast Iodine Hives IV Contrast Metoprolol Tartrate Made pulse low [place] Oil-Black Currant-Vit E Verapamil Wellbutrin [Bupropion Hcl] Makes pt sick in the stomach All other review of systems reviewed and negative other than mentioned in HPI. Objective: BP 110/62 | Pulse 77 | Temp 36.9 C (98.4 F) (Tympanic) | Ht 1.651 m (5' 5") | Wt 115.9 kg (255 lb 8 oz) | SpO2 98% | BMI 42.52 kg/m | BSA 2.31 m Results for orders placed or performed in visit on 11/08/21 BASIC METABOLIC PANEL Result Value Ref Range BUN 13 6 - 20 mg/dL Creatinine 1.1 (H) 0.5 - 1.0 mg/dL Estimated Glomerular Filtration Rate 52 (L) >=60 mL/min Sodium 141 135 - 146 mmol/L Potassium 4.5 3.5 - 5.1 mmol/L Chloride 97 (L) 98 - 107 mmol/L CO2 35 (H) 22 - 32 mmol/L Anion Gap 9 7 - 15 mmol/L Glucose 106 70 - 120 mg/dL Calcium 8.7 8.4 - 10.2 mg/dL *Note: Due to a large number of results and/or encounters for the requested time period, some results have not been displayed. A complete set of results can be found in Results Review. Cardiology note: "Impression/Plan: 1. Heart failure with reduced EF, NYHA class 3 EF 40-45% 02/2021. Mostly euvolemic on exam with some mild ankle edema. Weight down 5 lbs. Breathingat baseline. Does have severe COPD, oxygen dependent- SpO2 96% on 2 L. 1. Continue lasix 60 mg twice daily (previously 60 in the am and 40 in the pm). 2. Continue spironolactone to 12.5 mg every Friday, Friday, Friday 3. Continue metoprolol succinate 25 mg in the morning and 12.5 mg in the evening- questionable episodes of bradycardia, patient to wear a 3 day zio monitor. May benefit from reduction in dosing to 12.5 mg twice daily. This could also improve her breathing. 4. Continue lisinopril 2.5 mg daily- refill provided. Repeat BMP in 1 week. 6. I will call follow-up with the patient on Friday/Friday to see how she is doing. 2. Nonischemic cardiomyopathy Cardiac catheterization performed 11/2020 in [place] demonstrated mild nonobstructive CAD 3. Permanent Atrial Fibrillation [id number] score of 5 (age 1, female, CHF, hypertension), no AC s/p watchman implant 11/2019. HR in the 70s today in office. Questionable episodes of bradycardia as noted above 1. For now continue metoprolol succinate 25 mg in the morning and 12.5 mg in the evening- plan as stated above. 4. Dyslipidemia, LDL goal below 70 1. Continue Lipitor 40 mg daily" Physical Exam Constitutional: General: She is not in acute distress. Appearance: Normal appearance. She is normal weight. She is not ill-appearing, toxic-appearing or diaphoretic. HENT: Head: Normocephalic and atraumatic. Eyes: Extraocular Movements: Extraocular movements intact. Conjunctiva/sclera: Conjunctivae normal. Pupils: Pupils are equal, round, and reactive to light. Cardiovascular: Rate and Rhythm: Normal rate. Rhythm irregular. Heart sounds: Normal heart sounds. No murmur heard. No friction rub. No gallop. Pulmonary: Effort: Pulmonary effort is normal. Breath sounds: No wheezing, rhonchi or rales. Comments: diminished Abdominal: General: Bowel sounds are normal. There is no distension. Palpations: Abdomen is soft. There is no mass. Tenderness: There is no abdominal tenderness. There is no guarding or rebound. Neurological: Mental Status: She is alert. ASSESSMENT: Subclinical hyperthyroidism - TSH; Future; Expected date: 11/19/2021 - T4, FREE; Future; Expected date: 11/19/2021 Possible symptoms related to thyroid. Update levels. Iron deficiency anemia, unspecified iron deficiency anemia type - FECAL OCCULT BLOOD, EIA; Future; Expected date: 11/19/2021 - IRON SCREEN, INCLUDING TIBC; Future; Expected date: 11/19/2021 Has fluctuated between 10-13 dating back prior to 2017. Recent drop to 9. Iron is low on every other day supplement. Will update iron levels and consider daily therapy. Repeat fecal occult blood. Unable to process last sample. COPD, group B, 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 ([facility]) Following with pulm Chronic hypoxemic respiratory failure (HCC) Following with pulm. 2 L oxygen daily Pulmonary HTN ([facility]) Following with pulm Sleep apnea, obstructive 4L oxygen at night. Chronic systolic heart failure (HCC) As noted in HPI Paroxysmal atrial fibrillation ([facility]) S/p Watchmen Type 2 diabetes mellitus with stage 3a chronic kidney disease, without long-term current use of insulin ([facility]) Renal function stable relatively stable with diuretic adjustment. Has follow up study today Type 2 diabetes mellitus with hemoglobin A1c goal of less than 7.5% ([facility]) Controlled. Continue amaryl Hyperlipidemia with target LDL less than 100 Continue statin HTN, goal below 140/90 Controlled. Gastro-esophageal reflux disease without esophagitis Continue PPI Morbid obesity with BMI of 40.0-44.9, adult ([facility]) Dietary discretion. Unable to have much exercise component secondary to respiratory status. DM type 2 nursing care encounter (HCC) (Primary) - DIABETES FOOT EXAM I spent a total of 40-54 minutes (exact time 40 mins) on the date of service in preparation, delivery, and documentation of the care provided to Nina Harrington excluding any time spent in the performance of separately billed services. David Duke PA-C * Amanda Russo LPN - 11/19/2021 2:41 PM EST Chief Complaint Patient presents with Follow Up Pt c/o 3 month follow up. Patient states she has be getting the cold sweat x 2 months. DM Foot Exam completed today. Provider aware. Amanda Russo LPN Socks and Shoes Removed for Annual Diabetic [...] monofilament pressure on plantar surface of foot documented in this encounter Miscellaneous Notes * Addendum Note - Amanda Russo LPN - 11/19/2021 4:08 PM EST Addended by: AMANDA RUSSO on: 11/19/2021 04:08 PM Modules accepted: SmartSet documented in this encounter Plan of Treatment Upcoming Encounters Date Type Specialty Care Team Description 12/27/2021 Office Visit Cardiology Hammad Lopez, DO [address] [place] [id number] 02/19/2022 Office Visit Internal Medicine Marcela Pinto MD [address] [facility] [address] Pending Results Name Type Priority Associated Diagnoses Date /Time TSH Lab Routine Subclinical hyperthyroidism 11/19/2021 3:29 PM EST T4, FREE Lab Routine Subclinical hyperthyroidism 11/19/2021 3:29 PM EST IRON SCREEN, INCLUDING TIBC Lab Routine Iron deficiency anemia, unspecified iron deficiency anemia type 11/19/2021 3:29 PM EST Scheduled Orders Name Type Priority Associated Diagnoses Orde r Schedule TSH Lab Routine Subclinical hyperthyroidism Expected: 11/19/2021 (Approximate), Expires: 11/19/2022 T4, FREE Lab Routine Subclinical hyperthyroidism Expected: 11/19/2021 (Approximate), Expires: 11/19/2022 FECAL OCCULT BLOOD, EIA Lab Routine Iron deficiency anemia, unspecified iron deficiency anemia type Expected: 11/19/2021 (Approximate), Expires: 11/19/2022 IRON SCREEN, INCLUDING TIBC Lab Routine Iron deficiency anemia, unspecified iron deficiency anemia type Expected: 11/19/2021 (Approximate), Expires: 11/19/2022 Health Maintenance Due Date Last Done Comments Zoster Vaccines (2 of 3) 08/31/2012 07/06/2012 DIABETES-URINE ALBUMIN/CREATININE EVERY 12 MONTHS 07/09/2020 07/09/2019, 07/27/2018, 05/19/2017, Additional history exists COVID-19 Vaccine (4 - Booster for Pfizer series) 01/19/2022 08/21/2021, 12/22/2020, 2020 DIABETES-HGBA1C EVERY 6 MONTHS 02/20/2022 08/23/2021, 03/09/2021, 12/05/2020, Additional history exists CKD PHOS USE SMARTSET 45229 03/09/2022 03/09/2021, 0 03/22/2019 DIABETES-EYE EXAM 03/26/2022 03/26/2021, , 08/10/2019, Additional history exists CKD GFR USE SMARTSET 12185 05/08/202211/08, 10/25/2021, 09/03/2021, Additional history exists Depression Screening, Annual for Pts 12 and Over 08/08/2022 08/08/2021 CKD HGB USE SMARTSET 73225 10/25/202210/25, 08/28/2021, 08/28/2021, Additional history exists DIABETES-FOOT EXAM 11/19/2022 11/19/2021, 0 12/21/2020, 10/19/2019, Additional history exists Dexa Scan 08/08/2025 08/08/2020, [...] as of this encounter Visit Diagnoses Diagnosis Subclinical hyperthyroidism- Primary Thyrotoxicosis without mention of goiter or other cause, without mention of thyrotoxic crisis or storm Iron deficiency anemia, unspecified iron deficiency anemia type COPD, group B, 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 (HCC) Chronic hypoxemic respiratory failure (HCC) Chronic respiratory failure Pulmonary HTN (HCC) Other chronic pulmonary heart diseases Sleep apnea, obstructive Obstructive sleep apnea (adult) (pediatric) Chronic systolic heart failure (HCC) Chronic systolic heart failure Paroxysmal atrial fibrillation (HCC) Atrial fibrillation Type 2 diabetes mellitus with stage 3a chronic kidney disease, without long-term current use of insulin (HCC) Type 2 diabetes mellitus with hemoglobin A1c goal of less than 7.5% (HCC) Hyperlipidemia with target LDL less than 100 Other and unspecified hyperlipidemia HTN, goal below 140/90 Unspecified essential hypertension Gastro-esophageal reflux disease without esophagitis Esophageal reflux Morbid obesity with BMI of 40.0-44.9, adult (HCC) Morbid obesity DM type 2 nursing care encounter (HCC) Type II or unspecified type diabetes mellitus without mention of complication, not stated as uncontrolled documented in this encounter Advance Directives Documents on File Type Date Recorded Patient Income Auditor Expl anation Advanced 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 Directive Advanced Directive Advanced Directive Care Teams 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
--- OUTSIDE RECORDS SUMMARY | 2023-06-18 02:57 | External Medical Summary | Summary of Care ---
Author Name Unknown Organization [place] [address] Care Team Providers Care Set And Exhibit Designer Name Role Phone Marcela Pinto MD Primary Care Provider + Reason for Visit * Reason Comments eRx-Medication Refill Encounter Details Date Type Department Care Team Description 12/25/2021 Refill Family Medicine [facility] [address] [place] [address] Jessica Andrade DO [address] [place] [address] Allergies Active Allergy Reactions Severity Noted Date Comments Valsartan 07/10/2010 Enalapril 05/21/2006 Escitalopram Oxalate Nausea/vomiting 10/11/2009 Nauseated Iodinated Diagnostic Agents Nausea/vomiting 05/2010 IV Contrast Iodine Hives 12/18/2009 IV Contrast Metoprolol Tartrate 11/18/2006 Made pulse low [place] Oil-Black Currant-Vit E 07/10/2010 Verapamil 03/21/2004 Bupropion Hcl 10/30/2009 Makes pt sick in the stomach documented as of this encounter (statuses as of 12/26/2021) Medications Medication Sig Dispensed Refills Start Date [...] moderate ([facility]) USE ONE NEBULIZER TREATMENT TWICE A DAY DIRECTED FOR WORSENING ASTHMA. J45.909, J44.9 225 mL 1 06/29/2019 Active Albuterol Sulfate (VENTOLIN HFA) 108 (90 Base) MCG/ACT AERS Inhale 2 Puffs by mouth 2 times a day. 0 12/27/2019 Active Lancets MISCIndications:Type 2 diabetes mellitus with hemoglobin A1c goal of less than 7.0% ([facility]) Use as directed. USE TO TEST [...] diastolic dysfunction (HCC),NICM (nonischemic cardiomyopathy) ([facility]),Presence of Watchman left atrial appendage closure device [...] 1.25 MCG/ACT Inhalation Aerosol Solution (Tiotropium [place] Monohydrate) Inhale by mouth. 0 Active Furosemide [...] the morning. 90 Tablet 3 11/12/2021 Active HYDROcodone-Acetamin ophen 5-325 MG Oral TabletIndications:Ge neralized osteoarthritis Take by mouth 1 Tablet every 6 hours as needed for Pain, Mild. 120 Tablet 0 11/21/2021 Active Ciprofloxacin HCl 500 MG Oral Tablet (Cipro)Indications:A cute diverticulitis Take by mouth 1 Tablet in the morning AND 1 Tablet before bedtime. Do all this for 10 days. 20 Tablet 0 12/18/2021 2 Active metroNIDAZOLE 500 MG Oral TabletIndications:Ac edis diverticulitis Take by mouth 1 Tablet in the morning AND 1 Tablet at noon AND 1 Tablet before bedtime. Do all this for 10 days. 30 Tablet 0 12/18/2021 2 Active Ketoconazole 2 % External Cream APPLY TO GROIN AREA TWICE A DAY 60 g 11 12/26/2021 Active documented as of this encounter (statuses as of 12/26/2021) Active Problems Problem Noted Date Type 2 [...] as of this encounter (statuses as of 12/26/2021) Resolved Problems Problem Noted Date Resolved Date [...] Hypoxemia 10/08/2011 10/30/2015 Genetic Sleep Disorder Research Other*[id number] 07/25/2011 05/15/2016 Diverticulitis of colon 07/25/2011 01/06/20 [...] as of this encounter (statuses as of 12/26/2021) Immunizations Name Administration Dates Next Due COVID-19 mRNA, LNP-s, No Pre serve, 2-Dose Series ([employer]) 08/21/2021,12/22/2020,2020 Hepatitis B, 20+ yrs 10/01/2017,04/21/2017,03/20 Pneumococcal [...] Telephone Encounter - Marcela Pinto MD - 12/26/2021 8:31 PM EDT Signed Prescriptions: Disp Refills Ketoconazole 2 % External Cream 60 g 11 Sig: APPLY TO GROIN AREA TWICE A DAY Authorizing Provider: MARCELA PINTO * Telephone Encounter - Sheridan Wills [facility] - 12/26/2021 12:05 PM EDT Pending Prescriptions: Disp Refills Ketoconazole 2 % External Cream [Pharmacy*60 g 11 Sig: APPLY TO GROIN AREA TWICE A DAY * Telephone Encounter - Sheriadn Wills RPh - 12/26/2021 12:04 PM EDT Telepharmacy is currently not authorized to approve refills for the pended medication(s) per refillprotocol. Please approve if appropriate. Thanks, Sheridan Wills, PharmD Clinical Pharmacist Telephaacy [phone] 12/26/2021, 12:05 PM Pending Prescriptions: Disp Refills Ketoconazole 2 % External Cream [Pharmacy*60 g 11 Sig: APPLY TO GROIN AREA TWICE A DAY Last Visit: 05/27/2020 (in office), Visit date not found (telemedicine) Next Visit: Visit date not found If no future appointments scheduled, and last appointment is greater than a year ago, please schedule patient for a follow-up appointment Last date the medication was ordered: 05/27/2020 Pharmacy: [id number] [id number] [facility] Is this request for a [...] Office Visit Cardiology Hammad Lopez, DO 132 [facility] [place] [address] 02/19/2022 Office Visit Internal Medicine Marcela Pinto MD 200 [facility] [place] [address] Health Maintenance Due Date Last Done Comments Zoster Vaccines (2 of 3) 08/31/2012 07/06/2012 DIABETES-URINE ALBUMIN/CREATININE EVERY 12 MONTHS 07/09/2020 07/09/2019, 07/27/2018, 05/19/2017, Additional history exists COVID-19 Vaccine (4 - Booster for Pfizer series) 01/19/2022 08/21/2021, 12/22/2020, 2020 DIABETES-HGBA1C EVERY 6 MONTHS 02/20/2022 08/23/2021, 03/09/2021, 12/05/2020, Additional history exists CKD PHOS USE SMARTSET 44608 03/09/2022 03/09/2021, 0 03/22/2019 DIABETES-EYE EXAM 03/26/2022 03/26/2021, , 08/10/2019, Additional history exists CKD GFR USE SMARTSET 38392 05/19/202211/19, 11/08/2021, 10/25/2021, Additional history exists Depression Screening, Annual for Pts 12 and Over 08/08/2022 08/08/2021 CKD HGB USE SMARTSET 40119 10/25/202210/25, 08/28/2021, 08/28/2021, Additional history exists BASIC [...] Documents on File Type Date Recorded Patient Heel Cover Softener Expl anation Advanced 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 Directive Advanced Directive Advanced Directive Care Teams Set And Exhibit Designer Relationship Specialty Start Date End Date Marcela Pinto MD [address] [place] [address] PCP - General Internal Medicine 08/04/14 documented as of this encounter
--- OUTSIDE RECORDS SUMMARY | 2023-06-18 02:57 | External Medical Summary | Summary of Care ---
Author Name Unknown Organization [place] [address] Care Team Providers Care Stripping Shovel Oiler Name Role Phone Marcela Pinto MD Primary Care Provider + Reason for Visit * Reason Onset Date Comments Information 12/13/2021 Encounter Details Date Type Department Care Team Description 12/13/2021 Telephone General Internal Medicine [facility] 200 [facility] [place] [id number] Marcela Pinto MD 200 [place] [address] Information Allergies Active Allergy Reactions Severity Noted Date Comments Valsartan 07/10/2010 Enalapril 05/21/2006 Escitalopram Oxalate Nausea/vomiting 10/11/2009 Nauseated Iodinated Diagnostic Agents Nausea/vomiting 05/2010 IV Contrast Iodine Hives 12/18/2009 IV Contrast Metoprolol Tartrate 11/18/2006 Made pulse low [place] Oil-Black Currant-Vit E 07/10/2010 Verapamil 03/21/2004 Bupropion Hcl 10/30/2009 Makes pt sick in the stomach documented as of this encounter (statuses as of 12/13/2021) Medications Medication Sig Dispensed Refills Start Date [...] Aerosol Solution (Tiotropium [place] Monohydrate) Inhale by mouth. 0 Active Furosemide [...] Pain, Mild. 120 Tablet 0 11/21/2021 Active documented as of this encounter (statuses as of 12/13/2021) Active Problems Problem Noted Date Type 2 [...] as of this encounter (statuses as of 12/13/2021) Resolved Problems Problem Noted Date Resolved Date [...] Hypoxemia 10/08/2011 10/30/2015 Genetic Sleep Disorder Research Other*[id number] 07/25/2011 05/15/2016 Diverticulitis of colon 07/25/2011 01/06/20 [...] as of this encounter (statuses as of 12/13/2021) Immunizations Name Administration Dates Next Due COVID-19 mRNA, LNP-s, No Pre serve, 2-Dose Series ([employer]) 08/21/2021,12/22/2020,2020 Hepatitis B, 20+ yrs 10/01/2017,04/21/2017,03/20 Pneumococcal [...] Telephone Encounter - Mohinder Landry RN - 12/13/2021 11:58 AM EST Received request for office notes from [employer] for Medicare required documentation. Office notes from 07/10/2021, 08/20/2021, and 11/19/2021 faxed to them at [phone] with confirmation. Request sent to scanning. documented in this encounter Plan of Treatment Upcoming Encounters Date Type Specialty Care Team Description 12/27/2021 Office Visit Cardiology Hammad Lopez, DO 132 [facility] [place] [address] 02/19/2022 Office Visit Internal Medicine Marcela Pinto MD 200 [facility] [place] [address] Health Maintenance Due Date Last Done Comments Zoster Vaccines (2 of 3) 08/31/2012 07/06/2012 DIABETES-URINE ALBUMIN/CREATININE EVERY 12 MONTHS 07/09/2020 07/09/2019, 07/27/2018, 05/19/2017, Additional history exists COVID-19 Vaccine (4 - Booster for Pfizer series) 01/19/2022 08/21/2021, 12/22/2020, 2020 DIABETES-HGBA1C EVERY 6 MONTHS 02/20/2022 08/23/2021, 03/09/2021, 12/05/2020, Additional history exists CKD PHOS USE SMARTSET 76898 03/09/2022 03/09/2021, 0 03/22/2019 DIABETES-EYE EXAM 03/26/2022 03/26/2021, , 08/10/2019, Additional history exists CKD GFR USE SMARTSET 70040 05/19/202211/19, 11/08/2021, 10/25/2021, Additional history exists Depression Screening, Annual for Pts 12 and Over 08/08/2022 08/08/2021 CKD HGB USE SMARTSET 77266 10/25/202210/25, 08/28/2021, 08/28/2021, Additional history exists BASIC METABOLIC PANEL (BMP) FOR HTN YEARLY 11/19/2022 11/19/2021, 11/08/2021, 10/25/2021, Additional history exists DIABETES-FOOT EXAM 11/19/2022 11/19/2021, 0 12/21/2020, 10/19/2019, Additional history exists O2 ASSESSMENT COMPLETED IN PAST YEAR FOR COPD 11/19/2022 11/19/2021 Dexa Scan 08/08/2025 08/08/2020, 07, 06/19/2010, Additional [...] Documents on File Type Date Recorded Patient Lawn Technician Expl 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 Directive Advanced Directive Advanced Directive Care Teams Stripping Shovel Oiler Relationship Specialty Start Date End Date Marcela Pinto MD [address] [place] [address] PCP - General Internal Medicine 08/04/14 documented as of this encounter
--- OUTSIDE RECORDS SUMMARY | 2023-06-18 02:57 | External Medical Summary | Summary of Care ---
Author Name Unknown Organization [place] [address] Care Team Providers Care Blender Snuff Name Role Phone Marcela Pinto MD Primary Care Provider + Reason for Visit * Reason Onset Date Comments Test Results 11/20/2021 Encounter Details Date Type Department Care Team Description 11/20/2021 Telephone General Internal Medicine [facility] 200 [place] [place] [address] David Duke PA-C [address] [facility] [place] [address] Test Results Allergies Active Allergy Reactions Severity Noted Date Comments Valsartan 07/10/2010 Enalapril 05/21/2006 Escitalopram Oxalate Nausea/vomiting 10/11/2009 Nauseated Iodinated Diagnostic Agents Nausea/vomiting 05/2010 IV Contrast Iodine Hives 12/18/2009 IV Contrast Metoprolol Tartrate 11/18/2006 Made pulse low [place] Oil-Black Currant-Vit E 07/10/2010 Verapamil 03/21/2004 Bupropion Hcl 10/30/2009 Makes pt sick in the stomach documented as of this encounter (statuses as of 11/20/2021) Medications Medication Sig Dispensed Refills Start Date [...] Respimat 1.25 MCG/ACT Inhalation Aerosol Solution (Tiotropium [place] Monohydrate) Inhale by mouth. 0 Active Furosemide [...] as of this encounter (statuses as of 11/20/2021) Active Problems Problem Noted Date Type 2 [...] as of this encounter (statuses as of 11/20/2021) Resolved Problems Problem Noted Date Resolved Date [...] Hypoxemia 10/08/2011 10/30/2015 Genetic Sleep Disorder Research Other*[id number] 07/25/2011 05/15/2016 Diverticulitis of colon 07/25/2011 01/06/20 [...] as of this encounter (statuses as of 11/20/2021) Immunizations Name Administration Dates Next Due COVID-19 mRNA, LNP-s, No Pre serve, 2-Dose Series ([employer]) 08/21/2021,12/22/2020,2020 Hepatitis B, 20+ yrs 10/01/2017,04/21/2017,03/20 Pneumococcal [...] Telephone Encounter - Mohinder Landry RN - 11/20/2021 4:01 PM EST TSH and Free T4 lab results printed and faxed to [facility] Endocrinology at [phone] with confirmation. * Telephone Encounter - Trinidad Dempsey LPN - 11/20/2021 1:01 PM EST Patient aware and verbalized understanding, will comply. Please assist with faxing lab results to [facility] endocrinology. * Telephone Encounter - Dodie Carson LPN - 11/20/2021 12:35 PM EST ----- Message from David Duke PA-C sent at 11/20/2021 8:34 AM EST ----- Patient is hypothyroid. Stop methimazole (tapazole). Would recommend she reach out to her cotton agent as well to get their recommendations. Can fax thyroid labs to [facility] endocrinology for their review as well. Iron is still low. Recommend taking iron supplement daily. documented in this encounter Plan of Treatment Upcoming Encounters Date Type Specialty Care Team Description 12/27/2021 Office Visit Cardiology Hammad Lopez DO [address] [place] [address] 02/19/2022 Office Visit Internal Medicine Marcela Pinto MD [address] [place] [address] Health Maintenance Due Date Last Done Comments Zoster Vaccines (2 of 3) 08/31/2012 07/06/2012 DIABETES-URINE ALBUMIN/CREATININE EVERY 12 MONTHS 07/09/2020 07/09/2019, 07/27/2018, 05/19/2017, Additional history exists COVID-19 Vaccine (4 - Booster for Pfizer series) 01/19/2022 08/21/2021, 12/22/2020, 2020 DIABETES-HGBA1C EVERY 6 MONTHS 02/20/2022 08/23/2021, 03/09/2021, 12/05/2020, Additional history exists CKD PHOS USE SMARTSET 73425 03/09/2022 03/09/2021, 0 03/22/2019 DIABETES-EYE EXAM 03/26/2022 03/26/2021, , 08/10/2019, Additional history exists CKD GFR USE SMARTSET 32011 05/19/202211/19, 11/08/2021, 10/25/2021, Additional history exists Depression Screening, Annual for Pts 12 and Over 08/08/2022 08/08/2021 CKD HGB USE SMARTSET 79519 10/25/202210/25, 08/28/2021, 08/28/2021, Additional history exists DIABETES-FOOT [...] Documents on File Type Date Recorded Patient Cut To Length 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 Directive Advanced Directive Advanced Directive Care Teams Blender Snuff Relationship Specialty Start Date End Date Marcela Pinto MD [address] [place] [address] PCP - General Internal Medicine 08/04/14 documented as of this encounter
--- OUTSIDE RECORDS SUMMARY | 2023-06-18 02:57 | External Medical Summary | Summary of Care ---
Author Name Unknown Organization [place] [address] Care Team Providers Care Fine Dining Server Name Role Phone Marcela Pinto MD Primary Care Provider + Reason for Visit * Reason Comments Follow Up Pt c/o 3 month follo w up. Patient states she has be getting the cold sweat x 2 months. Encounter Details Date Type Department Care Team Description 11/19/2021 [facility] 200 [facility] [place] [address] David Duke PA-C 200 [facility] [place] [address] Subclinical hyperthyroidism*; Iron deficiency anemia, unspecified iron deficiency anemia type; COPD, group B, 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 ([facility]); Chronic hypoxemic respiratory failure ([facility]); Pulmonary HTN ([facility]); Sleep apnea, obstructive; Chronic systolic heart failure ([facility]); Paroxysmal atrial fibrillation ([facility]); Type 2 diabetes mellitus with stage 3a chronic kidney disease, without long-term current use of insulin ([facility]); Type 2 diabetes mellitus with hemoglobin A1c goal of less than 7.5% ([facility]); Hyperlipidemia with target LDL less than 100; HTN, goal below 140/90; Gastro-esophageal reflux disease without esophagitis; Morbid obesity with BMI of 40.0-44.9, adult ([facility]); DM type 2 nursing care encounter ([facility]) Allergies Active Allergy Reactions Severity Noted Date Comments Valsartan 07/10/2010 Enalapril 05/21/2006 Escitalopram Oxalate Nausea/vomiting 10/11/2009 Nauseated Iodinated Diagnostic Agents Nausea/vomiting 05/2010 IV Contrast Iodine Hives 12/18/2009 IV Contrast Metoprolol Tartrate 11/18/2006 Made pulse low [place] Oil-Black Currant-Vit E 07/10/2010 Verapamil 03/21/2004 Bupropion [...] LDL less than 100,Chronic systolic heart failure ([facility]),Paroxysmal atrial fibrillation ([facility]),Chronic 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 ([facility]),NICM (nonischemic cardiomyopathy) ([facility]),Chronic atrial fibrillation ([facility]),Hospital discharge follow-up,Presence of Watchman left atrial appendage [...] Respimat 1.25 MCG/ACT Inhalation Aerosol Solution (Tiotropium [place] Monohydrate) Inhale by mouth. 0 Active Furosemide [...] Hypoxemia 10/08/2011 10/30/2015 Genetic Sleep Disorder Research Other*[id number] 07/25/2011 05/15/2016 Diverticulitis of colon 07/25/2011 01/06/20 [...] mRNA, LNP-s, No Pre serve, 2-Dose Series ([employer]) 08/21/2021,12/22/2020,2020 Hepatitis B, 20+ yrs 10/01/2017,04/21/2017,03/20 Pneumococcal [...] this encounter Patient Instructions * Patient Instructions* Susana QuirozNICOL - 11/19/2021 2:50 PM EST Diabetes: Keeping [...] calluses yourself. Talk to your doctor or travel registered nurse icu (a doctor who specializes in foot care) [...] the area doesnt appear to be healing. [id number] [employer], [address] [place] [address], [place] [address]. All rights reserved. This information is not [...] on methimazole for sublinical hyperthyroidism. Follows with [facility] endocrinology. Denies fever, chills,myalgias, dysuria, abdominal pain, cough, sinus congestion. Recent increase in diuretics by cardiology. Breathing better and weight back down. Now on Lasix 60 mg BID. Following with [facility] pulm. PMH: Patient Active Problem List Diagnosis [...] less than 7.5% ([facility]) E11.9 Hypercalcemia E83.52 Elevated plasma metanephrines R79.89 Irritable bowel syndrome with constipation K58.1 Ischemic colitis ([facility]) K55.9 HECTOR (generalized anxiety disorder) F41.1 COPD, [...] hypoxemic respiratory failure ([facility]) J96.11 Type 2 diabetes mellitus with stage 3a chronic kidney disease (HCC) E11.22, N18.31 Chronic kidney disease, stage 3a ([facility] [...] Respimat 1.25 MCG/ACT Inhalation Aerosol Solution (Tiotropium [place] Monohydrate) Inhale by mouth. Furosemide 40 MG [...] IV Contrast Metoprolol Tartrate Made pulse low [place] Oil-Black Currant-Vit E Verapamil Wellbutrin [Bupropion Hcl] [...] Nonischemic cardiomyopathy Cardiac catheterization performed 11/2020 in [place] demonstrated mild nonobstructive CAD 3. Permanent Atrial Fibrillation [id number] score of 5 (age 1, female, CHF, [...] group B, 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 (HCC) Following with pulm Chronic hypoxemic respiratory failure (HCC) Following with pulm. 2 L oxygen daily Pulmonary HTN (HCC) Following with pulm Sleep apnea, obstructive 4L oxygen at night. Chronic systolic heart failure (HCC) As noted in HPI Paroxysmal atrial fibrillation (HCC) S/p Watchmen Type 2 diabetes mellitus with stage 3a chronic kidney disease, without long-term current use of insulin ([facility]) Renal function stable relatively stable with diuretic adjustment. Has follow up study today Type 2 diabetes mellitus with hemoglobin A1c goal of less than 7.5% ([facility]) Controlled. Continue amaryl Hyperlipidemia with target LDL less than 100 Continue statin HTN, goal below 140/90 Controlled. Gastro-esophageal reflux disease without esophagitis Continue PPI Morbid obesity with BMI of 40.0-44.9, adult ([facility]) Dietary discretion. Unable to have much exercise component secondary to respiratory status. DM type 2 nursing care encounter ([facility]) (Primary) - DIABETES FOOT EXAM I spent a total of 40-54 minutes (exact time 40 mins) on the date of service in preparation, delivery, and documentation of the care provided to Nina Harrington excluding any time spent in the performance of separately billed services. David Duke PA-C * Susana Quiroz LPN - 11/19/2021 2:41 PM EST Chief Complaint Patient presents with Follow Up Pt c/o 3 month follow up. Patient states she has be getting the cold sweat x 2 months. documented in this encounter Plan of Treatment Upcoming Encounters Date Type Specialty Care Team Description 12/27/2021 Office Visit Cardiology Hammad Lopez O, DO 132 [facility] [place] [address] 02/19/2022 Office Visit Internal Medicine Marcela Pinto MD [address] [place], [place] [address] [address] Pending Results Name Type Priority Associated Diagnoses [...] Additional history exists CKD PHOS USE SMARTSET 18005 03/09/2022 03/09/2021, 0 03/22/2019 DIABETES-EYE EXAM 03/26/2022 03/26/2021, , 08/10/2019, Additional history exists CKD GFR USE SMARTSET 05790 05/08/202211/08, 10/25/2021, 09/03/2021, Additional history exists Depression Screening, Annual for Pts 12 and Over 08/08/2022 08/08/2021 CKD HGB USE SMARTSET 68599 10/25/202210/25, 08/28/2021, 08/28/2021, Additional history exists DIABETES-FOOT [...] Documents on File Type Date Recorded Patient Chicken Boner Expl anation Advanced 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 Directive Advanced Directive Advanced Directive Care Teams Fine Dining Server Relationship Specialty Start Date End Date Marcela Pinot MD [address] [place] [address] PCP - General Internal Medicine 08/04/14 documented as of this encounter
--- OUTSIDE RECORDS SUMMARY | 2023-06-18 02:57 | External Medical Summary | Summary of Care ---
Author Name Unknown Organization [place] [address] Care Team Providers Care Case Managers Name Role Phone Marcela Pinto MD Primary Care Provider + Reason for Visit * Reason Onset Date Comments MyCode Consent 11/19/2021 Encounter Details Date Type Department Care Team Description 11/19/2021 Orders Only Outcomes Research Department [address], [place] [id number] Ros Umanzor CHRA MyCode Research Other*[id number]* Allergies Active Allergy Reactions Severity Noted Date Comments Valsartan 07/10/2010 Enalapril 05/21/2006 Escitalopram Oxalate Nausea/vomiting 10/11/2009 Nauseated Iodinated Diagnostic Agents Nausea/vomiting 05/2010 IV Contrast Iodine Hives 12/18/2009 IV Contrast Metoprolol Tartrate 11/18/2006 Made pulse low [place] Oil-Black Currant-Vit E 07/10/2010 Verapamil 03/21/2004 Bupropion [...] moderate ([facility]) USE ONE NEBULIZER TREATMENT TWICE A DAY DIRECTED FOR WORSENING ASTHMA. J45.909, J44.9 225 mL 1 06/29/2019 Active Albuterol Sulfate (VENTOLIN HFA) 108 (90 Base) MCG/ACT AERS Inhale 2 Puffs by mouth 2 times a day. 0 12/27/2019 Active Lancets MISCIndications:Type 2 diabetes mellitus with hemoglobin A1c goal of less than 7.0% ([facility]) Use as directed. USE TO [...] Respimat 1.25 MCG/ACT Inhalation Aerosol Solution (Tiotropium [place] Monohydrate) Inhale by mouth. 0 Active [...] Hypoxemia 10/08/2011 10/30/2015 Genetic Sleep Disorder Research Other*[id number] 07/25/2011 05/15/2016 Diverticulitis of colon 07/25/2011 01/06/20 [...] mRNA, LNP-s, No Pre serve, 2-Dose Series ([employer]) 08/21/2021,12/22/2020,2020 Hepatitis B, 20+ yrs 10/01/2017,04/21/2017,03/20 Pneumococcal [...] on file documented as of this encounter Progress Notes * ALEXIS Ramon - 11/19/2021 3:41 PM EST MyCode Consent Documentation Nina Harrington provided consent/authorization to participate in the MyCode Project. documented in this encounter Plan of Treatment Upcoming Encounters Date Type Specialty Care Team Description 12/27/2021 Office Visit Cardiology Hammad Lopez, DO [address] [facility] [place] [address] 02/19/2022 Office Visit Internal Medicine Marcela Pinto MD [address] [facility] [place], [place] [address] Scheduled Orders Name Type Priority Associated Diagnoses Orde r Schedule MYCODE INITIAL ADULT Lab Routine MyCode Research Other*[id number] Expected: 11/19/2021 (Approximate), Expires: 12/09/2022 Health Maintenance Due Date Last Done Comments Zoster Vaccines (2 of 3) 08/31/2012 07/06/2012 DIABETES-URINE ALBUMIN/CREATININE EVERY 12 MONTHS 07/09/2020 07/09/2019, 07/27/2018, 05/19/2017, Additional history exists COVID-19 Vaccine (4 - Booster for Pfizer series) 01/19/2022 08/21/2021, 12/22/2020, 2020 DIABETES-HGBA1C EVERY 6 MONTHS 02/20/2022 08/23/2021, 03/09/2021, 12/05/2020, Additional history exists CKD PHOS USE SMARTSET 85961 03/09/2022 03/09/2021, 0 03/22/2019 DIABETES-EYE EXAM 03/26/2022 03/26/2021, , 08/10/2019, Additional history exists CKD GFR USE SMARTSET 41341 05/08/202211/08, 10/25/2021, 09/03/2021, Additional history exists Depression Screening, Annual for Pts 12 and Over 08/08/2022 08/08/2021 CKD HGB USE SMARTSET 95210 10/25/202210/25, 08/28/2021, 08/28/2021, Additional history exists DIABETES-FOOT [...] this encounter Visit Diagnoses Diagnosis MyCode Research Other*[id number]- Primary documented in this encounter Advance Directives Documents on File Type Date Recorded Patient Wellness Director Expl 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 Directive Advanced Directive Advanced Directive Care Teams Case Managers Relationship Specialty Start Date End Date Marcela Pinto MD [address] [place] [address] PCP - General Internal Medicine 08/04/14 documented as of this encounter
--- OUTSIDE RECORDS SUMMARY | 2023-06-18 02:57 | External Medical Summary | Summary of Care ---
Author Name Unknown Organization [place] [address] Care Team Providers Care Supervisor Rework Name Role Phone Marcela Pinto MD Primary Care Provider + Reason for Visit * Reason Onset Date Comments Medication Refill 11/20/2021 Encounter Details Date Type Department Care Team Description 11/20/2021 Refill General Internal Medicine [facility] [address] [place] [address] Marcela Pinto MD 200 [facility] [place] [address] GENERAL OSTEOARTHROSIS Allergies Active Allergy Reactions Severity Noted Date Comments Valsartan 07/10/2010 Enalapril 05/21/2006 Escitalopram Oxalate Nausea/vomiting 10/11/2009 Nauseated Iodinated Diagnostic Agents Nausea/vomiting 05/2010 IV Contrast Iodine Hives 12/18/2009 IV Contrast Metoprolol Tartrate 11/18/2006 Made pulse low [place] Oil-Black Currant-Vit E 07/10/2010 Verapamil 03/21/2004 Bupropion Hcl 10/30/2009 Makes pt sick in the stomach documented as of this encounter (statuses as of 11/21/2021) Medications Medication Sig Dispensed Refills Start Date [...] severity to be determined,COPD, moderate ([facility]) USE ONE NEBULIZER TREATMENT TWICE A DAY DIRECTED FOR WORSENING ASTHMA. J45.909, J44.9 225 mL 1 9 Active Albuterol Sulfate (VENTOLIN HFA) 108 (90 Base) MCG/ACT AERS Inhale 2 Puffs by mouth 2 times a day. 0 0 Active Lancets MISCIndications:Typ e 2 diabetes mellitus with hemoglobin A1c goal of less than 7.0% ([facility]) Use as directed. USE TO [...] by mouth daily. 0 04/26/202 1 Active Advair HFA 230-21 MCG/ACT Inhalation Aerosol (fluticasone-[place] reg) Inhale by mouth 2 Puffs 2 times a day . 0 1 Active Zafirlukast 20 MG Oral Tablet (Accolate)Indicatio ns:Asthma with severity to be determined TAKE 1 TABLET BY MOUTH EVERY DAY 90 Tab 3 1 Active Atorvastatin Calcium 80 MG Oral Tablet (Lipitor)Indication s:Hyperlipidemia with target LDL less than 100,Chronic systolic heart failure (HCC),Paroxysmal atrial fibrillation (HCC),Chronic 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),NICM (nonischemic cardiomyopathy) (HCC),Chronic atrial fibrillation (HCC),Hospital discharge follow-up,Presence of Watchman left atrial appendage closure device Take 1 Tab by mouth daily. 90 Tab 3 1 Active Spironolactone 25 MG Oral Tablet (Aldactone) Take 0.5 Tabs by mouth once a day on Friday, Friday, and Friday only. 30 Tab 3 1 Active Zoster Vac Recomb [...] Oral Tablet Extended Release 24 Hour (toPROL XL)Indications:Bolt Threader akin heart failure with reduced ejection fraction [...] Respimat 1.25 MCG/ACT Inhalation Aerosol Solution (Tiotropium [place] Monohydrate) Inhale by mouth. 0 Active Furosemide [...] for Pain, Mild. 120 Tablet 0 2 11/20/19 22 Discontinu ed(Refill) documented as of this encounter (statuses as of 11/21/2021) Active Problems Problem Noted Date Type 2 [...] as of this encounter (statuses as of 11/21/2021) Resolved Problems Problem Noted Date Resolved Date [...] Hypoxemia 10/08/2011 10/30/2015 Genetic Sleep Disorder Research Other*[id number] 07/25/2011 05/15/2016 Diverticulitis of colon 07/25/2011 01/06/20 [...] as of this encounter (statuses as of 11/21/2021) Immunizations Name Administration Dates Next Due COVID-19 mRNA, LNP-s, No Pre serve, 2-Dose Series ([employer]) 08/21/2021,12/22/2020,2020 Hepatitis B, 20+ yrs 10/01/2017,04/21/2017,03/20 Pneumococcal [...] Telephone Encounter - Marcela Pinto MD - 11/21/2021 2:01 PM EST Signed Prescriptions: Disp Refills HYDROcodone-Acetaminophen 5-325 MG Oral Ta*120 Ta*0 Sig: Take by mouth 1 Tablet every 6 hours as needed for Pain, Mild. Authorizing Provider: MARCELA PINTO * Telephone Encounter - Jordan Pinto [facility] - 11/21/2021 8:59 AM EST Pending Prescriptions: Disp Refills HYDROcodone-Acetaminophen 5-325 MG Oral T*120 Ta*0 Sig: Take by mouth 1 Tablet every 6 hours as needed for Pain, Mild. * Telephone Encounter - Jordan Pinto RP - 11/21/2021 8:58 AM EST I have reviewed the patients controlled substance dispensing history in the Prescription Drug Monitoring Program in compliance with the [facility] regulations before prescribing a controlled substance. PDMP checked on 11/21/2021. Pending Prescriptions: Disp Refills HYDROcodone-Acetaminophen 5-325 MG Oral T*120 Ta*0 Sig: Take by mouth 1 Tablet every 6 hours as needed for Pain, Mild. Last Visit: 11/19/2021 Next Visit: 02/19/2022 Date medication was last filled: 10/14/21 Date medication is due for refill: 11/12/21 Pharmacy: [id number] [id number] [facility] Is this request for a controlled substance?Yes [...] in Results Review. Please approve if appropriate. Thanks, Jordan Riojas PharmD Clinical Pharmacist [facility] [phone] 11/21/2021,8:58 AM * Telephone Encounter - CRISTIANO Maldonado - 11/20/2021 10:48 AM EST Pending Prescriptions: Disp Refills HYDROcodone-Acetaminophen 5-325 MG Oral T*120 Ta*0 Sig: Take by mouth 1 Tablet every 6 hours as needed for Pain, Mild. Last Visit: 11/19/2021 Next Visit: 02/19/2022 If no future appointments scheduled, and last appointment is greater than a year ago, please schedule patient for a follow-up appointment Last date the medication was ordered: 10/14/2021 Pharmacy: [id number] [id number] [facility] Is this request for a controlled substance?Yes [...] Hammad Lopez, DO [address] [place] [address] 02/19/2022 Office Visit Internal Medicine Marcela Pinto MD 200 [facility] [place] [address] Health Maintenance Due Date Last Done Comments Zoster Vaccines (2 of 3) 08/31/2012 07/06/2012 DIABETES-URINE ALBUMIN/CREATININE EVERY 12 MONTHS 07/09/2020 07/09/2019, 07/27/2018, 05/19/2017, Additional history exists COVID-19 Vaccine (4 - Booster for Pfizer series) 01/19/2022 08/21/2021, 12/22/2020, 2020 DIABETES-HGBA1C EVERY 6 MONTHS 02/20/2022 08/23/2021, 03/09/2021, 12/05/2020, Additional history exists CKD PHOS USE SMARTSET 73575 03/09/2022 03/09/2021, 0 03/22/2019 DIABETES-EYE EXAM 03/26/2022 03/26/2021, , 08/10/2019, Additional history exists CKD GFR USE SMARTSET 41654 05/19/202211/19, 11/08/2021, 10/25/2021, Additional history exists Depression Screening, Annual for Pts 12 and Over 08/08/2022 08/08/2021 CKD HGB USE SMARTSET 93644 10/25/202210/25, 08/28/2021, 08/28/2021, Additional history exists DIABETES-FOOT [...] Documents on File Type Date Recorded Patient In House Counsel Expl anation Advanced 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 Directive Advanced Directive Advanced Directive Care Teams Supervisor Rework Relationship Specialty Start Date End Date Marcela Pinto MD [address] [place] [address] PCP - General Internal Medicine 08/04/14 documented as of this encounter
--- OUTSIDE RECORDS SUMMARY | 2023-06-18 02:57 | External Medical Summary | Summary of Care ---
Author Name Unknown Organization [place] [address] Care Team Providers Care Supervisor Type Photography Name Role Phone Marcela Pinto MD Primary Care Provider + Encounter Details Date Type Department Care Team Description 11/19/2021 Documentation Laboratory Scenery [facility] [address] [place] [address] [place], Lab Scenery [address] [place] [address] Chronic systolic heart failure (HCC); Subclinical hyperthyroidism; Iron deficiency anemia, unspecified iron deficiency anemia type Allergies Active Allergy Reactions Severity Noted Date Comments Valsartan 07/10/2010 Enalapril 05/21/2006 Escitalopram Oxalate Nausea/vomiting 10/11/2009 Nauseated Iodinated Diagnostic Agents Nausea/vomiting 05/2010 IV Contrast Iodine Hives 12/18/2009 IV Contrast Metoprolol Tartrate 11/18/2006 Made pulse low [place] Oil-Black Currant-Vit E 07/10/2010 Verapamil 03/21/2004 Bupropion [...] Asthma with severity to be determined,COPD, moderate ([facility]) USE ONE NEBULIZER TREATMENT TWICE [...] Aerosol Solution (Tiotropium [place] Monohydrate) Inhale by mouth. 0 Active Furosemide [...] Hypoxemia 10/08/2011 10/30/2015 Genetic Sleep Disorder Research Other*[id number] 07/25/2011 05/15/2016 Diverticulitis of colon 07/25/2011 01/06/20 [...] mRNA, LNP-s, No Pre serve, 2-Dose Series ([employer]) 08/21/2021,12/22/2020,2020 Hepatitis B, 20+ yrs 10/01/2017,04/21/2017,03/20 Pneumococcal [...] on file documented as of this encounter Nursing Notes * Entry Data - 11/20/2021 5:32 AM EST Automated conversion to a Documentation Encounter documented in this encounter Miscellaneous Notes * Result QuickNote - NIECY Holder - 11/20/2021 11:28 AM EST BMP stable. * Result QuickNote - David Duke PA-C - 11/20/2021 8:34 AM EST Patient is hypothyroid. Stop methimazole (tapazole). Would recommend she reach out to her teamsite developer as well to get their recommendations. Can fax thyroid labs to [facility] endocrinology for their review as well. Iron is still low. Recommend taking iron supplement daily. documented in this encounter Plan of Treatment Upcoming Encounters Date Type Specialty Care Team Description 12/27/2021 Office Visit Cardiology Hammad Lopez, DO [address] [place] [address] 02/19/2022 Office Visit Internal Medicine Marcela Pinto MD 200 [facility] [place] [address] Health Maintenance Due Date Last Done Comments Zoster Vaccines (2 of 3) 08/31/2012 07/06/2012 DIABETES-URINE ALBUMIN/CREATININE EVERY 12 MONTHS 07/09/2020 07/09/2019, 07/27/2018, 05/19/2017, Additional history exists COVID-19 Vaccine (4 - Booster for Pfizer series) 01/19/2022 08/21/2021, 12/22/2020, 2020 DIABETES-HGBA1C EVERY 6 MONTHS 02/20/2022 08/23/2021, 03/09/2021, 12/05/2020, Additional history exists CKD PHOS USE SMARTSET 55636 03/09/2022 03/09/2021, 0 03/22/2019 DIABETES-EYE EXAM 03/26/2022 03/26/2021, , 08/10/2019, Additional history exists CKD GFR USE SMARTSET 33778 05/19/202211/19, 11/08/2021, 10/25/2021, Additional history exists Depression Screening, Annual for Pts 12 and Over 08/08/2022 08/08/2021 CKD HGB USE SMARTSET 67608 10/25/202210/25, 08/28/2021, 08/28/2021, Additional history exists DIABETES-FOOT [...] Date/Time Associated Diagnosis Comments BASIC METABOLIC PANEL STAT 11/19/2021 3:29 PM EST Chronic systolic heart failure (HCC) IRON SCREEN, INCLUDING TIBC Routine 11/19/2021 3:29 PM EST Iron deficiency anemia, unspecified iron deficiency anemia type TSH Routine 11/19/2021 3:29 PM EST Subclinical hyperthyroidism T4, FREE Routine 11/19/2021 3:29 PM EST Subclinical hyperthyroidism documented in this encounter Results * IRON SCREEN, INCLUDING TIBC (11/19/2021 3:29 PM EST) Iron 29(L) 33 - 151 ug/dL [facility] Iron Binding Capacity 280 250 - 425 ug/dL [facility]OR[facility] Y [facility] Transferrin Saturation Percent 10(L) 15 - 55 % [facility] Specimen Blood - Venous blood specime n (specimen) Performing Organization Address [facility] de Phone Number [facility] [address] [place] [address] * T4, FREE (11/19/2021 3:29 PM EST) T4, Free 0.7(L) 0.9 - 1.7 ng/dL [facility] Specimen Blood - Venous blood specime n (specimen) Performing Organization Address [facility] de Phone Number [facility] [address] [place] [address] * TSH (11/19/2021 3:29 PM EST) TSH 13.40(H) 0.27 - 4.20 uIU/mL [facility] Specimen Blood - Venous blood specime n (specimen) Performing Organization Address [facility] de Phone Number [facility] [address] [place] [address] * BASIC METABOLIC PANEL (11/19/2021 3:29 PM EST) BUN 22(H) 6 - 20 mg/dL [place] [address] Creatinine 0.9 0.5 - 1.0 mg/dL [place] [address] Estimated Glomerular Filtration Rate 61Comment:eGFR is calculated based on the CKD-EPI 2020 equation >=60 mL/min [place] [address] Sodium 140 135 - 146 mmol/L [place] [address] Potassium 4.7 3.5 - 5.1 mmol/L [place] [address] Chloride 99 98 - 107 mmol/L [place] [address] CO2 33(H) 22 - 32 mmol/L [place] [address] Anion Gap 8 7 - 15 mmol/L [facility] [place] [address] Glucose 109 70 - 120 mg/dL [place] [address] Calcium 9.6 8.4 - 10.2 mg/dL [place] [address] Specimen Blood - Venous blood specime n (specimen) Performing Organization Address City/State/[facility] de Phone Number [place] [address] [place] [address] documented in this encounter Visit Diagnoses Diagnosis Chronic systolic heart failure (HCC) Chronic systolic heart failure Subclinical hyperthyroidism Thyrotoxicosis without mention of goiter or other cause, without mention of thyrotoxic crisis or storm Iron deficiency anemia, unspecified iron deficiency anemia type documented in this encounter Advance Directives Documents on File Type Date Recorded 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
--- OUTSIDE RECORDS SUMMARY | 2023-06-18 02:57 | External Medical Summary | Summary of Care ---
Author Name Unknown Organization [place] [address] Care Team Providers Care Tearoom Hostess Name Role Phone Marcela Pinto MD Primary Care Provider + Reason for Visit * Reason Comments Acute Stomach/side have be en sick and hurting for a couple weeks, gets hot and then cold and clammy, believes it's her diverticulitis acting up Encounter Details Date Type Department Care Team Description 12/18/2021 Office Visit General Internal Medicine [facility] [address] [place] [address] Leanne Soriano MD [address] [place] [address] Acute diverticulitis*; COPD, group B, 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 ([facility]); Pulmonary HTN ([facility]); HTN, goal below 140/90; Type 2 diabetes mellitus with hemoglobin A1c goal of less than 7.5% ([facility]) Allergies Active Allergy Reactions Severity Noted Date Comments Valsartan 07/10/2010 Enalapril 05/21/2006 Escitalopram Oxalate Nausea/vomiting 10/11/2009 Nauseated Iodinated Diagnostic Agents Nausea/vomiting 05/2010 IV Contrast Iodine Hives 12/18/2009 IV Contrast Metoprolol Tartrate 11/18/2006 Made pulse low [place] Oil-Black Currant-Vit E 07/10/2010 Verapamil 03/21/2004 Bupropion Hcl 10/30/2009 Makes pt sick in the stomach documented as of this encounter (statuses as of 12/18/2021) Medications Medication Sig Dispensed Refills Start Date [...] Oral Tablet Extended Release 24 Hour (toPROL XL)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 0 Active Furosemide [...] 30 Tablet 0 2 12/29/19 22 Active Advair HFA 230-21 MCG/ACT Inhalation Aerosol (fluticasone-Salmet reg) Inhale by mouth 2 Puffs 2 times a day . 0 1 12/19/19 22 Discontinu ed(Medicat ion List Clean Up) documented as of this encounter (statuses as of 12/18/2021) Active Problems Problem Noted Date Type 2 [...] as of this encounter (statuses as of 12/18/2021) Resolved Problems Problem Noted Date Resolved Date [...] Hypoxemia 10/08/2011 10/30/2015 Genetic Sleep Disorder Research Other*[id number] 07/25/2011 05/15/2016 Diverticulitis of colon 07/25/2011 01/06/20 [...] as of this encounter (statuses as of 12/18/2021) Immunizations Name Administration Dates Next Due COVID-19 mRNA, LNP-s, No Pre serve, 2-Dose Series (Feesheh) 08/21/2021,12/22/2020,2020 Hepatitis B, 20+ yrs 10/01/2017,04/21/2017,03/20 Pneumococcal [...] Sign Reading Time Taken Comments Blood Pressure 110/60 12/18/2021 2:44 PM EST Pulse 59 12/18/2021 2:44 PM EST Temperature 36.9 C (98.4 F) 12/18/2021 2:44 PM ES T Respiratory Rate 14 12/18/2021 2:44 PM EST Oxygen Saturation 95% 12/18/2021 2:44 PM EST Inhaled Oxygen Concentration - - Weight 113.6 kg (250 lb 6.4 oz) 12/18/2021 2:44 PM EST Height - - Body Mass Index 41.67 11/19/2021 2:45 PM EST documented in this encounter Patient Instructions * Patient Instructions* Leanne Soriano MD - 12/18/2021 3:17 PM EST Images from the original note were not included. Discharge Instructions for Diverticulitis You have been diagnosed with diverticulitis. This is a conditionin whichsmall pouches form in your colon (large intestine) and become inflamed or infected. Follow the guidelines below for home care. As you recover Tips for recovery include: Eat a low-fiber diet. Your healthcare provider mayadvise a liquid diet.This gives your bowela chance to rest so that it can recover. Foods to include: flake cereal, mashed potatoes, pancakes, waffles, pasta, white bread, rice, applesauce, bananas, eggs, fish, poultry, tofu, and well- cooked vegetables Take your medicinesas directed. Do not stop taking the medicines, even if you feel better. Monitor your temperature and report any rising temperature to your healthcare provider. Take antibiotics exactly as directed. Do not miss any and keep taking them even if you feel better. Drink 6 to 8 glasses of water every day, unless directed otherwise. Use a heating pad or hot water bottle to reduce abdominal cramping or pain. Preventing diverticulitis in the future Tips for prevention include: Eat a high-fiber diet. Fiber adds bulk to the stool so that it passes through the large intestine more easily. Keep drinking 6 to 8 glasses of water every day, unless directed otherwise. Begin an exercise program. Ask your healthcare provider how to get started. You can benefit fromsimple activities such as walking or gardening. Treat diarrhea with a bland diet. Start with liquids only,then slowly add fiber over time. Watch for changes in your bowel movements (constipation to diarrhea). Avoid constipation with fiber and add a stool softener if needed. Get plenty of rest and sleep. Follow-up care Make a follow-up appointment as directed by our staff. When to call your healthcare provider Call your healthcare provider immediately if you have any of the following: Fever of 100.4F (38.0C) or higher, or as directed by your healthcare provider Chills Severe cramps inthe belly, most commonly the lower left side Tenderness inthe belly, most commonly the lower left side Nausea and vomiting Bleeding from your rectum Date Last Reviewed: 04/12/201619990834-4485 [employer]. [address] [place] [address]. All rights reserved. This information is not intended as a substitute for professional medical care. Always follow your healthcare professional's instructions. Discharge Instructions for Diverticulitis You have been diagnosed with diverticulitis. This is a conditionin whichsmall pouches form in your colon (large intestine) and become inflamed or infected. Follow the guidelines below for home care. As you recover Tips for recovery include: Eat a low-fiber diet. Your healthcare provider mayadvise a liquid diet.This gives your bowela chance to rest so that it can recover. Foods to include: flake cereal, mashed potatoes, pancakes, waffles, pasta, white bread, rice, applesauce, bananas, eggs, fish, poultry, tofu, and well- cooked vegetables Take your medicinesas directed. Do not stop taking the medicines, even if you feel better. Monitor your temperature and report any rising temperature to your healthcare provider. Take antibiotics exactly as directed. Do not miss any and keep taking them even if you feel better. Drink 6 to 8 glasses of water every day, unless directed otherwise. Use a heating pad or hot water bottle to reduce abdominal cramping or pain. Preventing diverticulitis in the future Tips for prevention include: Eat a high-fiber diet. Fiber adds bulk to the stool so that it passes through the large intestine more easily. Keep drinking 6 to 8 glasses of water every day, unless directed otherwise. Begin an exercise program. Ask your healthcare provider how to get started. You can benefit fromsimple activities such as walking or gardening. Treat diarrhea with a bland diet. Start with liquids only,then slowly add fiber over time. Watch for changes in your bowel movements (constipation to diarrhea). Avoid constipation with fiber and add a stool softener if needed. Get plenty of rest and sleep. Follow-up care Make a follow-up appointment as directed by our staff. When to call your healthcare provider Call your healthcare provider immediately if you have any of the following: Fever of 100.4F (38.0C) or higher, or as directed by your healthcare provider Chills Severe cramps inthe belly, most commonly the lower left side Tenderness inthe belly, most commonly the lower left side Nausea and vomiting Bleeding from your rectum Date Last Reviewed: 04/12/201619994960-0885 [employer]. [address] [place] [address]. All rights reserved. This information is not intended as a substitute for professional medical care. Always follow your healthcare professional's instructions. documented in this encounter Progress Notes * Leanne Soriano MD - 12/18/2021 3:06 PM EST SUBJECTIVE: Nina Harrington is a 81 year old female. Chief Complaint Patient presents with Acute Stomach/side have been sick and hurting for a couple weeks, gets hot and then cold and clammy, believes it's her diverticulitis acting up HPI: Patient presents today for acute appointment with some 2 week onset of some symptoms. Admits pain in the left lower quadrant and in the left side of the abdomen intermittently, dull ache, no radiation. Mild nausea intermittently, took Zofran this morning. No vomiting. No fever or chills but admits to feeling cold and clammy sometimes. Has been on a regular diet. History of diverticulitis in the past, history of diverticular bleeding as well in 2019. Colonoscopy April 2020-multiple small and large-mouthed diverticula in the sigmoid and descending colon, 5 mm polyp 30 cm from the anus. Fasting sugar was 111 this morning. She is not on CPAP, on oxygen 2 L in the day and 4 L at night. Last BMP reviewed Hemoglobin AIC Results: Lab Results Component Value [...] goal of less than 7.5% ([facility]) E11.9 Elevated plasma metanephrines R79.89 Irritable bowel syndrome with constipation K58.1 HECTOR (generalized anxiety disorder) F41.1 COPD, group B, 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 ([facility]) J44.9 Morbid obesity with BMI of 40.0-44.9, adult ([facility]) E66.01, Z68.41 Gastro-esophageal reflux disease without esophagitis K21.9 Paroxysmal atrial fibrillation ([facility]) I48.0 Chronic systolic heart failure ([facility]) I50.22 Pulmonary HTN ([facility]) I27.20 Chronic hypoxemic respiratory failure ([facility]) J96.11 Chronic kidney disease, stage 3a ([facility]) N18.31 Subclinical hyperthyroidism E05.90 History of ESBL E. coli infection Z86.19 Type 2 diabetes mellitus with stage 3a chronic kidney disease, without long- term current use ofinsulin ([facility]) E11.22, N18.31 Current Outpatient Medications Medication [...] tablet every other day 60 Tab 11 Albuterol Sulfate (VENTOLIN HFA) 108 (90 Base) [...] Respimat 1.25 MCG/ACT Inhalation Aerosol Solution (Tiotropium [place] Monohydrate) Inhale by mouth. Furosemide 40 MG Oral Tablet (Lasix) Take 1.5 Tablets by mouth 2 times a day. 270 Tablet 1 Lisinopril 2.5 MG Oral Tablet (Prinivil) Take by mouth 1 Tablet in the morning. 90 Tablet 3 albuterol sulfate (PROVENTIL) (2.5 MG/3ML) 0.083% nebulizer solution USE ONE NEBULIZER TREATMENT TWICE A DAY DIRECTED FOR WORSENING ASTHMA. J45.909, J44.9 225 mL 1 ondansetron ODT (ZOFRAN) [address] 8 mg on tongue every 8 hours as needed for Nausea. dissolve on tongue. doxycycline 100 MG Tablet Take by mouth 100 mg 2 times a day . RESCUE KIT: Take for Colds. Zoster Vac Recomb Adjuvanted 50 MCG/0.5ML Intramuscular Suspension Reconstituted (Shingrix) Inject 0.5 mL into a large muscle now and repeat dose in 60 to 180 days 1 Each 1 Promethazine HCl 25 MG Oral Tablet (Phenergan) TAKE 1 TABLET BY MOUTH EVERY 6 HOURS NEEDED FOR NAUSEA 60 Tablet 2 HYDROcodone-Acetaminophen 5-325 MG Oral Tablet Take by mouth 1 Tablet every 6 hours as needed for Pain, Mild. 120 Tablet 0 No current facility-administered medications for this visit. Outpatient Medications Prior to Visit Medication Sig Dispense Refill Lisinopril 2.5 MG Oral Tablet (Prinivil) Take by mouth 1 Tablet in the morning. 90 Tablet 3 Furosemide 40 MG Oral Tablet (Lasix) Take 1.5 Tablets by mouth 2 times a day. 270 Tablet 1 Glimepiride 2 MG Oral Tablet (Amaryl) TAKE 1 TABLET BY MOUTH EVERY DAY WITH BREAKFAST 90 Tablet1 Spiriva Respimat 1.25 MCG/ACT Inhalation Aerosol Solution (Tiotropium [place] Monohydrate) Inhale by mouth. Ipratropium-Albuterol 20-100 MCG/ACT Inhalation Aerosol Solution (Combivent [...] tab in the evening. 135 Tablet 3 Klor-Con M20 20 MEQ Oral Tablet Extended Release (Potassium Chloride Annalisa ER) TAKE 1 TABLET BY MOUTH EVERY DAY 90 Tablet 3 Omeprazole 20 MG Oral Capsule Delayed Release (PriLOSEC) TAKE 1 CAPSULE BY MOUTH TWICE A DAY 180 Capsule 3 methIMAzole 10 MG Oral Tablet (Tapazole) TAKE 1 TABLET BY MOUTH EVERY DAY 90 Tablet 1 Spironolactone 25 MG Oral Tablet (Aldactone) Take 0.5 Tabs by mouth once a day on Friday, Friday, and Friday only. 30 Tab 3 Atorvastatin Calcium 80 MG Oral Tablet (Lipitor) Take 1 Tab by mouth daily. 90 Tab 3 Zafirlukast 20 MG Oral Tablet (Accolate) TAKE 1 TABLET BY MOUTH EVERY DAY 90 Tab 3 Aspirin 81 MG Oral Tablet Delayed Release Take 81 mg by mouth daily. CareSens N Glucose Test In Vitro Strip (Glucose Blood) Test as directed. Tests three times daily [employer] N Voice System Device Use as directed. Tests three times daily/E11.9 Lancets [facility] Use as directed. USE TO TEST BLOOD SUGAR 3 TIMES A DAY FOR DIAGNOSIS CODE OF E11.9300 Each 1 Albuterol Sulfate (VENTOLIN HFA) 108 (90 Base) MCG/ACT AERS Inhale 2 Puffs by mouth 2 times a day. ferrous sulfate (FEOSOL) 325 (65 FE) MG Tablet One tablet every other day 60 Tab 11 docusate sodium (COLACE) 100 MG Capsule Take 1 Cap by mouth daily. 90 Cap 0 [facility] SENNA 8.6 MG Tablet TAKE 2 TABLETS BY MOUTH EVERY EVENING FOR 10 DAYS NEEDED FOR CONSTIPATION 0 Multiple Vitamins-Minerals (ONE DAILY MULTIVITAMIN WOMEN) TABS one pill each day polyethylene glycol 3350 (MIRALAX) 255 gram powder Take 17 g by mouth 2 times a day. One cap full in juice, to effect 1 stool per day. . 2 Bottle 3 oxygen GAS Use 4 L/min(Oxygen) as directed. Uses 2 LPM during the day and 4 LPM at night Probiotic Product (PROBIOTIC DAILY) Capsule Take 1 Cap by mouth daily. AZOPT 1 % OP SUSP INSTILL 1 DROP BY OPHTHALMIC ROUTE 2 TIMES EVERY DAY INTO BOTH EYES 4 LUMIGAN 0.01 % OP SOLN INSTILL 1 DROP BY TOPICAL ROUTE EVERY BEDTIME 4 VITAMIN D 1000 UNITS PO TABS one tablet daily HYDROcodone-Acetaminophen 5-325 MG Oral Tablet Take by mouth 1 Tablet every 6 hours as needed for Pain, Mild. 120 Tablet 0 Promethazine HCl 25 MG Oral Tablet (Phenergan) TAKE 1 TABLET BY MOUTH EVERY 6 HOURS NEEDED FOR NAUSEA 60 Tablet 2 Zoster Vac Recomb Adjuvanted 50 MCG/0.5ML Intramuscular Suspension Reconstituted (Shingrix) Inject 0.5 mL into a large muscle now and repeat dose in 60 to 180 days 1 Each 1 [DISCONTINUED] Advair HFA 230-21 MCG/ACT Inhalation Aerosol (fluticasone- Salmeterol) Inhale by mouth 2 Puffs 2 times a day . (Patient not taking: Reported on 11/19/2021 ) doxycycline 100 MG Tablet Take by mouth 100 mg 2 times a day . RESCUE KIT: Take for Colds. ondansetron ODT (ZOFRAN) [address] 8 mg on tongue every 8 hours as needed for Nausea. dissolve on tongue. albuterol sulfate (PROVENTIL) (2.5 MG/3ML) 0.083% nebulizer solution USE ONE NEBULIZER TREATMENT TWICE A DAY DIRECTED FOR WORSENING ASTHMA. J45.909, J44.9 225 mL 1 No facility-administered medications prior to visit. Last reviewed on 12/18/2021 2:44 PM by Pascale Burns LPN Review of patient's allergies indicates: Allergen Reactions Diovan [Valsartan] Enalapril Escitalopram Oxalate Nausea/vomiting Nauseated Iodinated Diagnostic Agents Nausea/vomiting IV Contrast Iodine Hives IV Contrast Metoprolol Tartrate Made pulse low [place] Oil-Black Currant-Vit E Verapamil Wellbutrin [Bupropion Hcl] Makes pt sick in the stomach OBJECTIVE: BP 110/60 | Pulse 59 | Temp 36.9 C (98.4 F) | Resp 14 | Wt 113.6 kg (250 lb 6.4 oz) | SpO2 95% | BMI 41.67 kg/m | BSA 2.28 m PHYSICAL EXAM: General: alert, healthy, no distress, well developed Neck: supple Heart: regular rhythm and rate,No murmurs. Lungs: lungs clear to auscultation Extremities: no edema Abdomen: Soft, +LLQ and left lumbar mild -tenderness, no rebound/rigidity/guarding. normal bowel sounds, no masses or organomegaly ASSESSMENT/PLAN: Acute diverticulitis (Primary) - Ciprofloxacin HCl 500 MG Oral Tablet (Cipro); Take by mouth 1 Tablet in the morning AND 1 Tablet before bedtime. Do all this for 10 days. - metroNIDAZOLE 500 MG Oral Tablet; Take by mouth 1 Tablet in the morning AND 1 Tablet at noon AND 1 Tablet before bedtime. Do all this for 10 days. liquid diet x 1-2 days, then low fiber diet till better --see instrn. -- then high fiber diet. Patient advised that if symptoms get worse or if has fever with chills to go to the ER for further evaluation and treatment. COPD, group B, 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 (HCC) Pulmonary HTN (HCC) HTN, goal below 140/90 Type 2 diabetes mellitus with hemoglobin A1c goal of less than 7.5% (HCC) Follow Up: Return if symptoms worsen or fail to improve. (This note was completed using the dictation program Fluency Direct. As such, there may be misspellings, word substitutions, or other variations that should not change the essence of the clinical content of this encounter note. If there is need for further clarification, please direct questions to the provider listed above.) Patient and / caregiver verbalizes understanding of above instructions and agrees with plan of care. Leanne Soriano MD 12/18/2021 * Pascale Burns LPN - 12/18/2021 2:40 PM EST Chief Complaint Patient presents with Acute Stomach/side have been sick and hurting for a couple weeks, gets hot and then cold and clammy, believes it's her diverticulitis acting up documented in this encounter Plan of Treatment Upcoming Encounters Date Type Specialty Care Team Description 12/27/2021 Office Visit Cardiology Hammad Lopez, DO [address] [facility] [place] [id number] 02/19/2022 Office Visit Internal Medicine Marcela Pinto MD [address] [facility] [place], [place] [address] Health Maintenance Due Date Last Done Comments Zoster Vaccines (2 of 3) 08/31/2012 07/06/2012 DIABETES-URINE ALBUMIN/CREATININE EVERY 12 MONTHS 07/09/2020 07/09/2019, 07/27/2018, 05/19/2017, Additional history exists COVID-19 Vaccine (4 - Booster for Pfizer series) 01/19/2022 08/21/2021, 12/22/2020, 2020 DIABETES-HGBA1C EVERY 6 MONTHS 02/20/2022 08/23/2021, 03/09/2021, 12/05/2020, Additional history exists CKD PHOS USE SMARTSET 60919 03/09/2022 03/09/2021, 0 03/22/2019 DIABETES-EYE EXAM 03/26/2022 03/26/2021, , 08/10/2019, Additional history exists CKD GFR USE SMARTSET 05606 05/19/202211/19, 11/08/2021, 10/25/2021, Additional history exists Depression Screening, Annual for Pts 12 and Over 08/08/2022 08/08/2021 CKD HGB USE SMARTSET 02022 10/25/202210/25, 08/28/2021, 08/28/2021, Additional history exists BASIC METABOLIC PANEL (BMP) FOR HTN YEARLY 11/19/2022 11/19/2021, 11/08/2021, 10/25/2021, Additional history exists DIABETES-FOOT EXAM 11/19/2022 11/19/2021, 0 12/21/2020, 10/19/2019, Additional history exists O2 ASSESSMENT COMPLETED IN PAST YEAR FOR COPD 11/19/2022 12/18/2021 Dexa Scan 08/08/2025 08/08/2020, 04/13, 06/19/2010, [...] of this encounter Visit Diagnoses Diagnosis Acute diverticulitis- Primary Diverticulitis of colon (without mention of hemorrhage) COPD, group B, 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 (HCC) Pulmonary HTN (HCC) Other chronic pulmonary heart diseases HTN, goal below 140/90 Unspecified essential hypertension Type 2 diabetes mellitus with hemoglobin A1c goal of less than 7.5% (HCC) documented in this encounter Advance Directives Documents on File Type Date Recorded Patient Manager Clinical Pharmacy Expl anation Advanced 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 Directive Advanced Directive Advanced Directive Care Teams Tearoom Hostess Relationship Specialty Start Date End Date Marcela Pinto MD [address] [place] [address] PCP - General Internal Medicine 08/04/14 documented as of this encounter"
--- OUTSIDE RECORDS SUMMARY | 2023-06-18 02:58 | External Medical Summary ---
Author Name Unknown Address Unknown Organization K01:[facility] [place] - [address] [facility] [address] Laboratory Report Ordering Provider Test Date Status ALOK MORGAN 11/19/2021 15:29:51 Final Observation Date Value Abnormality Reference (Units ) Status TSH 11/19/2021 15:29:51 13.40 Above high normal 0. 27-4.20 (uIU/mL) Final Performing Location LAB[facility]AT[facility] - [address] [facility] [id number]
--- OUTSIDE RECORDS SUMMARY | 2023-06-18 02:58 | External Medical Summary | Summary of Care ---
Author Name Unknown Organization [place] [address] Care Team Providers Care Road Train Driver Name Role Phone Marcela Pinto MD Primary Care Provider + Reason for Visit * Reason Comments Follow Up Encounter Details Date Type Department Care Team Description 11/12/2021 Office Visit Cardiology, [facility] [address] [place] [address] Dulce Merino CRNP [address] [place] [address] Paroxysmal atrial fibrillation (HCC)*; Chronic systolic heart failure (HCC) Allergies Active Allergy Reactions Severity Noted Date Comments Valsartan 07/10/2010 Enalapril 05/21/2006 Escitalopram Oxalate Nausea/vomiting 10/11/2009 Nauseated Iodinated Diagnostic Agents Nausea/vomiting 05/2010 IV Contrast Iodine Hives 12/18/2009 IV Contrast Metoprolol Tartrate 11/18/2006 Made pulse low [place] Oil-Black Currant-Vit E 07/10/2010 Verapamil 03/21/2004 Bupropion Hcl 10/30/2009 Makes pt sick in the stomach documented as of this encounter (statuses as of 11/12/2021) Medications Medication Sig Dispensed Refills Start Date [...] day. . 2 Bottle 3 6 Active Additional Information Patient not taking. Reported on 10/25/2021 Multiple Vitamins-Minerals (ONE DAILY MULTIVITAMIN WOMEN) TABS [...] be determined,COPD, moderate ([facility]) USE ONE NEBULIZER TREATMENT TWICE A DAY DIRECTED FOR WORSENING ASTHMA. J45.909, J44.9 225 mL 1 9 Active Albuterol Sulfate (VENTOLIN HFA) 108 (90 Base) MCG/ACT AERS Inhale 2 Puffs by mouth 2 times a day. 0 0 Active Lancets MISCIndications:Typ e 2 diabetes mellitus with hemoglobin A1c goal of less than 7.0% ([facility]) Use as directed. USE TO TEST BLOOD SUGAR 3 TIMES A DAY FOR DIAGNOSIS CODE OF E11.9 300 Each 1 0 Active ondansetron ODT (ZOFRAN) [address] 8 mg on tongue every 8 hours as needed for Nausea. dissolve on tongue. 0 Active doxycycline 100 MG Tablet Take 100 mg by mouth 2 times a day. RESCUE KIT: Take for Colds. 0 Active CareSens N Voice System Device Use as directed. Tests three times daily/E11.9 0 Active CareSens N Glucose Test In Vitro Strip (Glucose Blood) Test as directed. Tests three times daily 0 Active Aspirin 81 MG Oral Tablet Delayed Release Take 81 mg by mouth daily. 0 1 Active Advair HFA 230-21 MCG/ACT Inhalation Aerosol (fluticasone-Salmet reg) Inhale 2 Puffs by mouth 2 times a day. 0 1 Active Zafirlukast 20 MG Oral [...] Oral Tablet Extended Release 24 Hour (toPROL XL)Indications:Palliative Care Specialist akin 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 135 Tablet 3 1 Active HYDROcodone-Acetami nophen 5-325 MG Oral TabletIndications:G eneralized osteoarthritis Take 1 Tablet by mouth every 6 hours as needed for Pain, Mild. 120 Tablet 0 2 Active Ipratropium-Albuter ol 20-100 [...] Aerosol Solution (Tiotropium Jasper Monohydrate) Inhale by mouth. 0 Active Furosemide [...] the morning. 90 Tablet 3 2 Active Lisinopril 2.5 MG Oral Tablet (Prinivil) Take 2.5 mg by mouth daily. 0 1 11/12/19 22 Discontinu ed(Refill) documented as of this encounter (statuses as of 11/12/2021) Active Problems Problem Noted Date History of ESBL E. coli infection 2020 Subclinical hyperthyroidism 08/20/2021 Chronic kidney disease, stage 3a 021 Overview: Per CKD protocol Type 2 diabetes mellitus with stage 3a c hronic kidney disease 05/21/2021 Overview: Per CKD protocol Chronic systolic heart failure 1 Pulmonary HTN 03/05/2021 Chronic hypoxemic respiratory failure Paroxysmal atrial fibrillation 1 Morbid obesity with BMI of 40.0-44.9, ad ult 10/19/2019 Gastro-esophageal reflux disease without esophagitis 10/19/2019 COPD, group B, by GOLD 2017 classificati on 07/26/2019 Overview: Per COPD GOLD Classification HECTOR (generalized anxiety disorder) 07/09 Ischemic colitis 10/01/2017 Irritable bowel syndrome with constipati on 04/21/2017 Elevated plasma metanephrines 02/20/2017 Type 2 diabetes mellitus with hemoglobin A1c goal of less than 7.5% 02/12/2017 Hypercalcemia 02/12/2017 Controlled substance agreement signed Hyperlipidemia with [...] as of this encounter (statuses as of 11/12/2021) Resolved Problems Problem Noted Date Resolved Date Asthma in remission 01/09/2021 03/05/2021 Asthma, mild [...] 1 10/28/2019 Overview: Per Obesity protocol #1 Lower GI bleed 04/21/2017 01/05/2019 Severe obesity with body mas s index (BMI) of 35.0 to 39.9 with serious comorbidity 05/15/2016 08/28/2018 Overview: ICD-10 update of inactive diagnosis DM (diabetes mellitus), type 2 08/07/2015 0 06/25/2017 Incisional hernia 10/08/2012 02/01/2020 Nausea 09/05/2012 06/25/2017 Overview: ICD-10 update of inactive term HTN, GOAL BELOW 140/80 06/01/2012 6 Overview: Per HTN Protocol #27. Hypoxemia 10/08/2011 10/30/2015 Genetic Sleep Disorder Research Other*[id number] 07/25/2011 05/15/2016 Diverticulitis of colon 07/25/2011 01/06/20 [...] as of this encounter (statuses as of 11/12/2021) Immunizations Name Administration Dates Next Due COVID-19 mRNA, LNP-s, No Pre serve, 2-Dose Series (BragBet) 08/21/2021,12/22/2020,2020 Hepatitis B, 20+ yrs 10/01/2017,04/21/2017,03/20 Pneumococcal [...] Sign Reading Time Taken Comments Blood Pressure 124/76 11/12/2021 1:21 PM EST Pulse 74 11/12/2021 1:21 PM EST irreg ular Temperature 36.4 C (97.5 F) 11/12/2021 1:21 PM ES T Respiratory Rate 22 11/12/2021 1:21 PM EST Oxygen Saturation 96% 11/12/2021 1:21 PM EST on 2L/min Inhaled Oxygen Concentration - - Weight 117.5 kg (259 lb) 11/12/2021 1:21 PM EST Height - - Body Mass Index 43.1 08/20/2021 2:10 PM EST documented in this encounter Progress Notes * NIECY Holder - 11/12/2021 1:30 PM EST Cardiology Outpatient Visit 11/12/[address] Lopez Past medical history: 1. Chronic heart failure with reduced ejection fraction, EF 40-45% 02/2021, NYHA class 3 2. Nonischemic cardiomyopathy, cardiac catheterization performed 11/2020 in [place] demonstrated mild nonobstructive CAD 3. Permanent atrial fibrillation, [id number] score of 5 (age 1, female, CHF, hypertension), no ACs/p watchman implant 11/2019 4. Severe oxygen-dependent COPD with chronic hypercapnia HPI 80-year-old female presenting to the cardiology office today in follow-up for CHF. Was last seen bythe undersigned approximately 3 weeks ago. At her last appt she was up about 8 lbs with worsening shortness of breath. Patient was to increase lasix to 80 mg twice a day x3 days. After DTP she was down about 3 lbs. Maintenance dose was increase to 60 mg twice daily- repeat labs showed a slight decline in renal function. Today the patient presents feeling improved. Notes that her breathing is back to baseline. Down about 5 lbs at home. Did not take her diuretic yet today and notes some swelling in her ankles. States that she feels better on this increased dose of lasix. She is making good urine. She has been more fatigued recently, but has been more sedentary at home. She has been monitoring her pulse at home andnotes readings in the 40-50s at times. No palpitations or dizziness, no syncope. No chest pain. She states she is compliant with all medications, and offers no side effects. Requesting a refill for her lisinopril. Current Outpatient Medications Medication Sig Dispense Refill [...] Puffs by mouth 2 times a day. ondansetron ODT (ZOFRAN) [address] 8 mg on tongue every 8 hours as needed for Nausea. dissolve on tongue. Aspirin 81 MG Oral Tablet Delayed Release Take 81 mg by mouth daily. Zafirlukast 20 MG Oral Tablet (Accolate) TAKE 1 TABLET BY MOUTH EVERY DAY 90 Tab 3 Atorvastatin Calcium 80 MG Oral Tablet (Lipitor) Take 1 Tab by mouth daily. 90 Tab 3 methIMAzole 10 MG Oral Tablet [...] Aerosol Solution (Tiotropium Jasper Monohydrate) Inhale by mouth. Furosemide 40 MG Oral Tablet (Lasix) Take 1.5 Tablets by mouth 2 times a day. 270 Tablet 1 Promethazine HCl 25 MG Oral Tablet (Phenergan) TAKE 1 TABLET BY MOUTH EVERY 6 HOURS NEEDED FOR NAUSEA 60 Tablet 2 Lisinopril 2.5 MG Oral Tablet (Prinivil) Take by mouth 1 Tablet in the morning. 90 Tablet 3 polyethylene glycol 3350 (MIRALAX) 255 gram powder Take 17 g by mouth 2 times a day. One cap full in juice, to effect 1 stool per day. . (Patient not taking: Reported on 10/25/2021) 2 Bottle 3 [facility] SENNA 8.6 MG Tablet TAKE 2 TABLETS BY MOUTH EVERY EVENING FOR 10 DAYS NEEDED FOR CONSTIPATION (Patient not taking: Reported on 11/12/2021 ) 0 Lancets MISC Use as directed. USE TO TEST BLOOD SUGAR 3 TIMES A DAY FOR DIAGNOSIS CODE OF E11.9300 Each 1 doxycycline 100 MG Tablet Take 100 mg by mouth 2 times a day. RESCUE KIT: Take for Colds. (Patient not taking: Reported on 11/12/2021 ) CareSens N Voice System Device Use as directed. Tests three times daily/E11.9 CareSens N Glucose Test In Vitro Strip (Glucose Blood) Test as directed. Tests three times daily Advair HFA 230-21 MCG/ACT Inhalation Aerosol (fluticasone-Salmeterol) Inhale 2 Puffs by mouth 2times a day. (Patient not taking: Reported on 10/25/2021) Spironolactone 25 MG Oral Tablet (Aldactone) Take [...] COLONOSCOPY, DIAGNOSTIC (RECTUM) 05/29/2016 poor prep, diverticulosis/inpt [facility] COLONOSCOPY, DIAGNOSTIC (RECTUM) 06/05/2017 diverticulosis, repeat 3 yrs/[facility] COLONOSCOPY, DIAGNOSTIC (RECTUM) 02/28/2018 adenomatous polyps, diverticulosis, repeat 3 yrs / [facility] COLONOSCOPY, DIAGNOSTIC (RECTUM) 05/08/2020 inflammatory tissue on bx, diverticulosis / [facility] COLONOSCOPY, W/BIOPSY 03/20/2012 hyperplastic polyps rpt 3 years. EGD, FLEXIBLE, DIAGNOSTIC 04/29/2014 normal/inpt [facility] EGD, FLEXIBLE, DIAGNOSTIC 05/29/2016 fundic submucosal mass/inpt [facility] EGD, FLEXIBLE, DIAGNOSTIC 05/08/2020 normal / [facility] EGD, FLEXIBLE,W/ENDOSCOPIC US 11/08/2016 inflammatory changes, stomach lesion, repeat EUS 1.5 yrs/[facility] EGD, FLEXIBLE,W/ENDOSCOPIC US 05/01/2018 stromal cell (smooth muscle) neoplasm, CBD dilation, repeat 2 yrs (needs OV prior)/[facility] EGD, FLEXIBLE,W/ENDOSCOPIC US 09/01/2020 leiomyoma / [facility] INCISIONAL HERNIA REPAIR, LAP, REDUCIBLE 09/29/2012 Repair of incarcerated supraumbilical (incisional) hernia with [facility]rium mesh 09/29/12 LIGATE/CUT OVIDUCT(S) REMOVAL OF TONSILS, AGE 12+ age 11 REMOVE GALLBLADDER 1960 SIGMOIDOSCOPY, DIAGNOSTIC 04/29/2014 stool in rectum/inpt [facility] SMALL BOWEL ENDOSCOPY, REMOVE FOREIGN BODY [...] IV Contrast Metoprolol Tartrate Made pulse low [place] Oil-Black Currant-Vit E Verapamil Wellbutrin [Bupropion Hcl] Makes pt sick in the stomach Review of Systems: See HPI for pertinent positives. All others negative, other than those noted in HPI. Physical Exam BP 124/76 (BP Site: Left Arm, BP Position: Sitting, BP Cuff Size: Large) | Pulse 74 Comment: irregular | Temp 36.4 C (97.5 F) | Resp 22 | Wt 117.5 kg (259 lb) | SpO2 96% Comment: on 2L/min | BMI 43.10 kg/m | BSA 2.32 m General: No acute distress. A+Ox3. HEENT: [...] deficits. PSYCH: Normal. Lab data/imaging study review: Echo 09/03/2021 The examination is limited quality [...] is 44mm Hg. 2D echo report summary [facility] 02/26/21: LV systolic function is mildly [...] Nonischemic cardiomyopathy Cardiac catheterization performed 11/2020 in [place] demonstrated mild nonobstructive CAD 3. Permanent Atrial Fibrillation [id number] score of 5 (age 1, female, CHF, hypertension), no AC s/p watchman implant 11/2019. HR in the 70s today in office. Questionable episodes of bradycardia as noted above 1. For now continue metoprolol succinate 25 mg in the morning and 12.5 mg in the evening- plan as stated above. 4. Dyslipidemia, LDL goal below 70 1. Continue Lipitor 40 mg daily The patient agrees to the above plan and will call with additional questions or concerns. ER with all emergencies advised. Check-out note: Follow up as scheduled. I spent a total of 40 minutes on the date of service in preparation, delivery, and documentation ofthe care provided to Nina Harrington excluding any time spent in the performance of separately billedservices. NIECY Shepard, Department of Cardiology This chart was completed in part utilizing [employer] Speech Voice Recognition Software. Grammatical errors, random [...] Nursing Notes * Darren Mejia RN - 11/12/2021 1:28 PM EST Examination Room: room 7 Name: Nina Harrington Date of : (1940). Reason for Visit: for follow up Interim Hospitalization(s): denies Problems/Concerns: c/o of being weak and tired Chest Pain/SOB: states breathing is better [facility] Discussed: Not applicable [facility] a way you can talk to [...] Encounters Date Type Specialty Care Team Description 11/15/2021 Office Visit Internal Medicine Marcela Pinto MD [address] [place] [address] 12/27/2021 Office Visit Cardiology Hammad Lopez, [address] [place] [address] Scheduled Orders Name Type Priority Associated Diagnoses Orde r Schedule BASIC METABOLIC PANEL Lab STAT Chronic systolic heart failure (HCC) Expected: 11/19/2021, Expires: 11/12/2022 EXTERNAL EKG 2 TO 7 DAYS Holter Routine Paroxysmal atrial fibrillation (HCC) Expected: 11/13/2021 (Approximate), Expires: 11/12/2022 Health Maintenance Due Date Last Done Comments Zoster Vaccines (2 of 3) 08/31/2012 07/06/2012 DIABETES-URINE ALBUMIN/CREATININE EVERY 12 MONTHS 07/09/2020 07/09/2019, 07/27/2018, 05/19/2017, Additional history exists DIABETES-FOOT EXAM 12/21/2021 12/21/2020, 0 10/19/2019, 01/05/2019, Additional history exists COVID-19 Vaccine (4 - Booster for Pfizer series) 01/19/2022 08/21/2021, 12/22/2020, 2020 DIABETES-HGBA1C EVERY 6 MONTHS 02/20/2022 08/23/2021, 03/09/2021, 12/05/2020, Additional history exists CKD PHOS USE SMARTSET 16156 03/09/2022 03/09/2021, 0 03/22/2019 DIABETES-EYE EXAM 03/26/2022 03/26/2021, , 08/10/2019, Additional history exists CKD GFR USE SMARTSET 88340 05/08/202211/08, 10/25/2021, 09/03/2021, Additional history exists Depression Screening, Annual for Pts 12 and Over 08/08/2022 08/08/2021 CKD HGB USE SMARTSET 45421 10/25/202210/25, 08/28/2021, 08/28/2021, Additional history exists Dexa Scan 08/08/2025 08/08/2020, [...] Paroxysmal atrial fibrillation (HCC)- Primary Atrial fibrillation Chronic systolic heart failure (HCC) Chronic systolic heart failure documented in this encounter Advance Directives Documents on File Type Date Recorded 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
--- OUTSIDE RECORDS SUMMARY | 2023-06-18 02:58 | External Medical Summary | Summary of Care ---
Author Name Unknown Organization [place] [address] Care Team Providers Care Supervisor Sawing And Assembly Name Role Phone Alex Pinto MD Primary Care Provider + Reason for Visit * Reason Comments eRx-Medication Refill Encounter Details Date Type Department Care Team Description 10/25/2021 Refill General Internal Medicine [facility] [address] [facility] [place] [place] [address] Alex Pinto MD [address] [facility] [place] [address] Allergies Active Allergy Reactions Severity Noted Date Comments Valsartan 07/10/2010 Enalapril 05/21/2006 Escitalopram Oxalate Nausea/vomiting 10/11/2009 Nauseated Iodinated Diagnostic Agents Nausea/vomiting 05/2010 IV Contrast Iodine Hives 12/18/2009 IV Contrast Metoprolol Tartrate 11/18/2006 Made pulse low [place] Oil-Black Currant-Vit E 07/10/2010 Verapamil 03/21/2004 Bupropion Hcl 10/30/2009 Makes pt sick in the stomach documented as of this encounter (statuses as of 10/26/2021) Medications Medication Sig Dispensed Refills Start Date [...] s:Asthma with severity to be determined,COPD, moderate ([facility] [...] RESCUE KIT: Take for Colds. 0 Active Lisinopril 2.5 MG Oral Tablet (Prinivil) Take 2.5 mg by mouth daily. 0 1 Active Precog System Device Use as directed. Tests three times daily/E11.9 0 Active CareSens N Glucose Test In Vitro Strip (Glucose Blood) Test as directed. Tests three times daily 0 Active Aspirin 81 MG Oral Tablet Delayed Release Take 81 mg by mouth daily. 0 1 Active Advair HFA 230-21 MCG/ACT Inhalation Aerosol (fluticasone-Salme terol) Inhale 2 Puffs by mouth 2 times a day. 0 1 Active Zafirlukast 20 MG Oral Tablet (Accolate)Indicati ons:Asthma with severity to be determined TAKE 1 TABLET BY MOUTH EVERY DAY 90 Tab 3 1 Active Atorvastatin Calcium 80 MG Oral Tablet (Lipitor)Indicatio ns:Hyperlipidemia with target LDL less than 100,Chronic systolic [...] Friday only. 30 Tab 3 1 Active Promethazine HCl 25 MG Oral Tablet (Phenergan)Indicat ions:Generalized osteoarthritis TAKE 1 TABLET BY MOUTH EVERY 6 HOURS NEEDED FOR NAUSEA 60 Tab 2 1 Active Zoster Vac Recomb Adjuvanted 50 MCG/0.5ML Intramuscular Suspension Reconstituted (Shingrix) Inject 0.5 mL into a large muscle now and repeat dose in 60 to 180 days 1 Each 1 1 Active Furosemide 40 MG Oral Tablet (Lasix)Indications :Chronic systolic heart failure (HCC),Paroxysmal atrial fibrillation (HCC),Chronic 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),NICM (nonischemic cardiomyopathy) (HCC),Chronic atrial fibrillation (HCC),Hospital discharge follow-up,Presence of Watchman left atrial appendage closure device 60 mg in AM, 40 mg in PM 270 Tablet 1 1 Active methIMAzole 10 MG Oral Tablet (Tapazole)Indicati [...] the evening. 135 Tablet 3 1 Active HYDROcodone-Acetam inophen 5-325 MG Oral TabletIndications: Generalized osteoarthritis Take 1 Tablet by mouth every 6 hours as needed for Pain, Mild. 120 Tablet 0 2 Active Ipratropium-Alb[place] rol 20-100 MCG/ACT Inhalation Aerosol Solution (Combivent Respimat)Indicatio ns:Asthma with severity to be determined,COPD, moderate (HCC) TAKE 1 PUFF BY MOUTH 4 TIMES A DAY 12 g 1 1 Active Glimepiride 2 MG Oral Tablet (Amaryl) TAKE 1 TABLET BY MOUTH EVERY DAY WITH BREAKFAST 90 Tablet 1 2 Active Spiriva Respimat 1.25 MCG/ACT Inhalation Aerosol Solution (Tiotropium [place] Monohydrate) Inhale by mouth. 0 Active Glimepiride 2 MG Oral Tablet (Amaryl) TAKE 1 TABLET BY MOUTH EVERY DAY WITH BREAKFAST 30 Tab 2 1 10/26/19 22 Discontinued documented as of this encounter (statuses as of 10/26/2021) Active Problems Problem Noted Date History of [...] as of this encounter (statuses as of 10/26/2021) Resolved Problems Problem Noted Date Resolved Date [...] Hypoxemia 10/08/2011 10/30/2015 Genetic Sleep Disorder Research Other*[id number] 07/25/2011 05/15/2016 Diverticulitis of colon 07/25/2011 01/06/20 [...] as of this encounter (statuses as of 10/26/2021) Immunizations Name Administration Dates Next Due COVID-19 mRNA, LNP-s, No Pre serve, 2-Dose Series (Beaut[employer]) 08/21/2021,12/22/2020,2020 Hepatitis B, 20+ yrs 10/01/2017,04/21/2017,03/20 Pneumococcal [...] Telephone Encounter - Alex Pinto MD - 10/26/2021 1:37 PM EST Signed Prescriptions: Disp Refills Glimepiride 2 MG Oral Tablet (Amaryl) 90 Tab*1 Sig: TAKE 1 TABLET BY MOUTH EVERY DAY WITH BREAKFAST Authorizing Provider: ALEX PINTO * Telephone Encounter - Sharonda Clark [facility] - 10/26/2021 11:47 AM EST Pending Prescriptions: Disp Refills Glimepiride 2 MG Oral Tablet (Amaryl) [Ph*90 Tab*1 Sig: TAKE 1 TABLET BY MOUTH EVERY DAY WITH BREAKFAST * Telephone Encounter - Sharonda Clark [facility] - 10/26/2021 11:44 AM EST I spoke with patient and confirmed she is only taking 1/2 tablet daily unless her sugar is really high and she will take a whole tablet. Please approve with appropriate directions. Thank You, Sharonda Clark [facility] Pharmacist Telepharmacy [phone] 10/26/2021, 11:46 AM documented in this encounter Plan of Treatment Upcoming Encounters Date Type Specialty Care Team Description 11/15/2021 Office Visit Internal Medicine Alex Pinto MD [address] [facility] [place] [address] 12/27/2021 Office Visit Cardiology Hammad Lopez, [address] [place] [address] Health Maintenance Due Date Last Done Comments Zoster Vaccines (2 of 3) 08/31/2012 07/06/2012 DIABETES-URINE ALBUMIN/CREATININE EVERY 12 MONTHS 07/09/2020 07/09/2019, 07/27/2018, 05/19/2017, Additional history exists DIABETES-FOOT EXAM 12/21/2021 12/21/2020, 0 10/19/2019, 01/05/2019, Additional history exists COVID-19 Vaccine (4 - Booster for Pfizer series) 02/18/2022 08/21/2021, 12/22/2020, 2020 DIABETES-HGBA1C EVERY 6 MONTHS 02/20/2022 08/23/2021, 03/09/2021, 12/05/2020, Additional history exists CKD PHOS USE SMARTSET 11512 03/09/2022 03/09/2021, 0 03/22/2019 DIABETES-EYE EXAM 03/26/2022 03/26/2021, , 08/10/2019, Additional history exists CKD GFR USE SMARTSET 26516 04/24/202210/25, 09/03/2021, 08/28/2021, Additional history exists Depression Screening, Annual for Pts 12 and Over 08/08/2022 08/08/2021 CKD HGB USE SMARTSET 99994 10/25/202210/25, 08/28/2021, 08/28/2021, Additional history exists Dexa [...] Documents on File Type Date Recorded Patient [place] Expl anation Advanced 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 Advanced Directive Advanced Directive Care Teams Supervisor Sawing And Assembly Relationship Specialty Start Date End Date Alex Pinto MD [address] [place] [address] PCP - General Internal Medicine 08/04/14 documented as of this encounter
--- OUTSIDE RECORDS SUMMARY | 2023-06-18 02:58 | External Medical Summary ---
Author Name Unknown Address Unknown Organization K01:[facility] [address] [place] [address] Laboratory Report Ordering Provider Test Date Status ALOK MORGAN 11/19/2021 15:29:51 Final Observation Date Value Abnormality Reference (Units ) Status Iron 11/19/2021 15:29:51 29 Below low normal 33-151 (ug/dL) Final Iron-binding capacity 11/19/2021 15:29:51 280 250-425 (ug/dL) Final Transferrin Sat % 11/19/2021 15:29:51 10 Below low normal 15-55 (%) Final Performing Location [facility] [address] [place] [address]
--- OUTSIDE RECORDS SUMMARY | 2023-06-18 02:58 | External Medical Summary | Summary of Care ---
Author Name Unknown Organization [place] [address] Care Team Providers Care Risk Mgr Name Role Phone Marcela Pinto MD Primary Care Provider + Reason for Visit * Reason Onset Date Comments FYI 10/30/2021 Encounter Details Date Type Department Care Team Description 10/30/2021 Telephone Cardiology, [facility] [address] [place] [address] AngeliqueDulce hernandez CRNP [address] [place] [address] FYI Allergies Active Allergy Reactions Severity Noted Date Comments Valsartan 07/10/2010 Enalapril 05/21/2006 Escitalopram Oxalate Nausea/vomiting 10/11/2009 Nauseated Iodinated Diagnostic Agents Nausea/vomiting 05/2010 IV Contrast Iodine Hives 12/18/2009 IV Contrast Metoprolol Tartrate 11/18/2006 Made pulse low [place] Oil-Black Currant-Vit E 07/10/2010 Verapamil 03/21/2004 Bupropion Hcl 10/30/2009 Makes pt sick in the stomach documented as of this encounter (statuses as of 11/01/2021) Medications Medication Sig Dispensed Refills Start Date [...] mg by mouth daily. 0 1 Active CareSens N Voice System Device Use [...] Respimat 1.25 MCG/ACT Inhalation Aerosol Solution (Tiotropium [place] Monohydrate) Inhale by mouth. 0 Active Furosemide 40 MG Oral Tablet (Lasix)Indications :Chronic systolic heart failure (HCC),Paroxysmal atrial fibrillation (HCC),Chronic 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),NICM (nonischemic cardiomyopathy) (HCC),Chronic atrial fibrillation (HCC),Hospital discharge follow-up,Presence of Watchman left atrial appendage closure device Take 1.5 Tablets by mouth 2 times a day. 270 Tablet 1 2 Active Furosemide 40 MG Oral Tablet (Lasix)Indications :Chronic systolic heart failure (HCC),Paroxysmal atrial fibrillation (HCC),Chronic 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),NICM (nonischemic cardiomyopathy) (HCC),Chronic atrial fibrillation (HCC),Hospital discharge follow-up,Presence of Watchman left atrial appendage closure device 60 mg in AM, 40 mg in PM 270 Tablet 1 1 10/31/19 22 Discontinued documented as of this encounter (statuses as of 11/01/2021) Active Problems Problem Noted Date History of [...] as of this encounter (statuses as of 11/01/2021) Resolved Problems Problem Noted Date Resolved Date [...] Hypoxemia 10/08/2011 10/30/2015 Genetic Sleep Disorder Research Other*[id number] 07/25/2011 05/15/2016 Diverticulitis of colon 07/25/2011 01/06/20 [...] as of this encounter (statuses as of 11/01/2021) Immunizations Name Administration Dates Next Due COVID-19 mRNA, LNP-s, No Pre serve, 2-Dose Series ([employer]) 08/21/2021,12/22/2020,2020 Hepatitis B, 20+ yrs 10/01/2017,04/21/2017,03/20 Pneumococcal [...] Miscellaneous Notes * Telephone Encounter - JORDAN Borrero - 10/31/2021 2:39 PM EST Spoke with pt. Pt is scheduled 11/12/21 with Dulce. * Telephone Encounter - NIECY Holder - 10/31/2021 1:43 PM EST Called and spoke with patient. She is feeling slightly better, but shortness of breath is still a little more labored than normal when she is doing any type of activity. Colbert like she was making goodurine with increased Lasix dosing. Patient was instructed to: 1. Increase lasix to 60 mg twice daily as a new maintenance dose. 2. Labs early next week Scheduling, please assist patient with making an appt the first week in November. Thanks, NIECY Gonzalez * Telephone Encounter - FAYE Oneal - 10/31/2021 11:59 AM EST Pt reports weight is decreased by 2.5 lb and SOB has improved mildly. She states that she is starting to fell better. FAYE Oneal * Telephone Encounter - NIECY Holder - 10/30/2021 5:15 PM EST Patient recently completed a DTP. Please follow up and see if weight decreased as well as improvement in her shortness of breath. If no real improvement would recommend sooner appointment in office. Thanks, NIECY Gonzalez documented in this encounter Plan of Treatment Upcoming Encounters Date Type Specialty Care Team Description 11/12/2021 Office Visit Cardiology Dulce Merino CRNP [address] [place] [address] 11/15/2021 Office Visit [facility] [address] 12/27/2021 Office Visit Cardiology Hammad Lopez DO [address] [place] [address] Scheduled Orders Name Type Priority Associated Diagnoses Orde r Schedule BASIC METABOLIC PANEL Lab STAT Chronic systolic heart failure (HCC) Paroxysmal atrial fibrillation (HCC) Chronic 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) NICM (nonischemic cardiomyopathy) (HCC) Chronic atrial fibrillation (HCC) Hospital discharge follow-up Presence of Watchman left atrial appendage closure device Expected: 10/31/2021, Expires: 10/31/2022 Health Maintenance Due Date Last Done Comments Zoster Vaccines (2 of 3) 08/31/2012 07/06/2012 DIABETES-URINE ALBUMIN/CREATININE EVERY 12 MONTHS 07/09/2020 07/09/2019, 07/27/2018, 05/19/2017, Additional history exists DIABETES-FOOT EXAM 12/21/2021 12/21/2020, 0 10/19/2019, 01/05/2019, Additional history exists COVID-19 Vaccine (4 - Booster for Pfizer series) 01/19/2022 08/21/2021, 12/22/2020, 2020 DIABETES-HGBA1C EVERY 6 MONTHS 02/20/2022 08/23/2021, 03/09/2021, 12/05/2020, Additional history exists CKD PHOS USE SMARTSET 97700 03/09/2022 03/09/2021, 0 03/22/2019 DIABETES-EYE EXAM 03/26/2022 03/26/2021, , 08/10/2019, Additional history exists CKD GFR USE SMARTSET 09953 04/24/202210/25, 09/03/2021, 08/28/2021, Additional history exists Depression Screening, Annual for Pts 12 and Over 08/08/2022 08/08/2021 CKD HGB USE SMARTSET 78921 10/25/202210/25, 08/28/2021, 08/28/2021, Additional history exists Dexa [...] Documents on File Type Date Recorded Patient Technical Consultant Expl 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 Directive Advanced Directive Advanced Directive Care Teams Risk Mgr Relationship Specialty Start Date End Date Marcela Pinto MD [address] [place] [address] PCP - General Internal Medicine 08/04/14 documented as of this encounter
--- OUTSIDE RECORDS SUMMARY | 2023-06-18 02:58 | External Medical Summary | Summary of Care ---
Author Name Unknown Organization [place] [address] Care Team Providers Care Procurement Clerk Name Role Phone Alex Pinto MD Primary Care Provider + Reason for Visit * Reason Comments eRx-Medication Refill Encounter Details Date Type Department Care Team Description 11/07/2021 Refill General Internal Medicine [facility] [address] [place] [address] Alex Pinto MD [address] [place] [address] GENERAL OSTEOARTHROSIS Allergies Active Allergy Reactions Severity Noted Date Comments Valsartan 07/10/2010 Enalapril 05/21/2006 Escitalopram Oxalate Nausea/vomiting 10/11/2009 Nauseated Iodinated Diagnostic Agents Nausea/vomiting 05/2010 IV Contrast Iodine Hives 12/18/2009 IV Contrast Metoprolol Tartrate 11/18/2006 Made pulse low [place] Oil-Black Currant-Vit E 07/10/2010 Verapamil 03/21/2004 Bupropion Hcl 10/30/2009 Makes pt sick in the stomach documented as of this encounter (statuses as of 11/07/2021) Medications Medication Sig Dispensed Refills Start Date [...] mg by mouth daily. 0 1 Active [employer] System Device Use as directed. Tests three [...] Respimat 1.25 MCG/ACT Inhalation Aerosol Solution (Tiotropium [place] Monohydrate) Inhale by mouth. 0 Active Furosemide [...] NEEDED FOR NAUSEA 60 Tab 2 1 11/07/19 22 Discontinued documented as of this encounter (statuses as of 11/07/2021) Active Problems Problem Noted Date History of [...] as of this encounter (statuses as of 11/07/2021) Resolved Problems Problem Noted Date Resolved Date [...] Hypoxemia 10/08/2011 10/30/2015 Genetic Sleep Disorder Research Other*[id number] 07/25/2011 05/15/2016 Diverticulitis of colon 07/25/2011 01/06/20 [...] as of this encounter (statuses as of 11/07/2021) Immunizations Name Administration Dates Next Due COVID-19 mRNA, LNP-s, No Pre serve, 2-Dose Series ([employer]) 08/21/2021,12/22/2020,2020 Hepatitis B, 20+ yrs 10/01/2017,04/21/2017,03/20 Pneumococcal [...] Telephone Encounter - Alex Pinto MD - 11/07/2021 5:41 PM EST Signed Prescriptions: Disp Refills Promethazine HCl 25 MG Oral Tablet (Phener*60 Tab*2 Sig: TAKE 1 TABLET BY MOUTH EVERY 6 HOURS NEEDED FOR NAUSEA Authorizing Provider: ALEX PINTO * Telephone Encounter - Butch Duval [facility] - 11/07/2021 4:39 PM EST Pending Prescriptions: Disp Refills Promethazine HCl 25 MG Oral Tablet (Phene*60 Tab*2 Sig: TAKE 1 TABLET BY MOUTH EVERY 6 HOURS NEEDED FOR NAUSEA * Telephone Encounter - Butch Duval RPh - 11/07/2021 4:39 PM EST Telepharmacy is currently not authorized to approve refills for the pended medication(s) per refillprotocol. Please approve if appropriate. Pending Prescriptions: Disp Refills Promethazine HCl 25 MG Oral Tablet (Phene*60 Tab*2 Sig: TAKE 1 TABLET BY MOUTH EVERY 6 HOURS NEEDED FOR NAUSEA Last Visit: 08/20/2021 Next Visit: 11/15/2021 If no future appointments scheduled, and last appointment is greater than a year ago, please schedule patient for a follow-up appointment Last date the medication was ordered: 07/18/21 Pharmacy: [id number] [id number] [facility] Is this request for a controlled substance?No [...] Lab Results Component Value Date/Time CREAT 0.9 10/25/2021 12:04 PM CREAT 1.08 (A) 06/12/2021 12:00 AM CREAT 1.0 05/27/2020 04:51 PM POTASSIUM 5.0 10/25/2021 12:04 PM POTASSIUM 4.1 06/12/2021 12:00 AM POTASSIUM 4.0 05/27/2020 04:51 PM TSH 0.965 12/05/2020 12:00 AM TSH [...] 11/12/2021 Office Visit Cardiology Dulce Merino CRNP [address] [address] 11/15/2021 Office Visit Internal Medicine Alex Pinto MD 200 [place] [address] 12/27/2021 Office Visit Cardiology Hammad Lopez DO [address] [place] [address] Health Maintenance Due Date Last Done Comments Zoster Vaccines (2 of 3) 08/31/2012 07/06/2012 DIABETES-URINE ALBUMIN/CREATININE EVERY 12 MONTHS 07/09/2020 07/09/2019, 07/27/2018, 05/19/2017, Additional history exists DIABETES-FOOT EXAM 12/21/2021 12/21/2020, 0 10/19/2019, 01/05/2019, Additional history exists COVID-19 Vaccine (4 - Booster for Pfizer series) 01/19/2022 08/21/2021, 12/22/2020, 2020 DIABETES-HGBA1C EVERY 6 MONTHS 02/20/2022 08/23/2021, 03/09/2021, 12/05/2020, Additional history exists CKD PHOS USE SMARTSET 95142 03/09/2022 03/09/2021, 0 03/22/2019 DIABETES-EYE EXAM 03/26/2022 03/26/2021, , 08/10/2019, Additional history exists CKD GFR USE SMARTSET 78895 04/24/202210/25, 09/03/2021, 08/28/2021, Additional history exists Depression Screening, Annual for Pts 12 and Over 08/08/2022 08/08/2021 CKD HGB USE SMARTSET 99504 10/25/202210/25, 08/28/2021, 08/28/2021, Additional history exists Dexa [...] Documents on File Type Date Recorded Patient Packing Supervisor Expl 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 Directive Advanced Directive Advanced Directive Care Teams Procurement Clerk Relationship Specialty Start Date End Date Alex Pinto MD [address] [place] [address] PCP - General Internal Medicine 08/04/14 documented as of this encounter
--- OUTSIDE RECORDS SUMMARY | 2023-06-18 02:58 | External Medical Summary ---
Author Name Unknown Address Unknown Organization K09:[place] [address] Laboratory Report Ordering Provider Test Date Status GEMA VOISO 11/19/2021 15:29:51 Final Observation Date Value Abnormality Reference (Units ) Status BUN 11/19/2021 15:29:51 22 Above high normal 6-20 (mg/dL) Final Creatinine 11/19/2021 15:29:51 0.9 0.5-1.0 (mg/dL) Final Glomerular filtration rate/1.73 sq M.predicted [Volume Rate/Area] in Serum, Plasma or Blood by Creatinine-based formula (CKD-EPI) 11/19/2021 15:29:51 61 >=60 (mL/min) Final Performing Location [place] [address]
--- OUTSIDE RECORDS SUMMARY | 2023-06-18 02:58 | External Medical Summary | Summary of Care ---
Author Name Unknown Organization [place] [address] Care Team Providers Care Police Shift Commander Name Role Phone Marcela Pinto MD Primary Care Provider + Reason for Visit * Reason Comments Outpatient Testing Encounter Details Date Type Department Care Team Description 11/08/2021 Laboratory Laboratory [address] [place] [phone] [facility] [address] [place] [phone] Chronic systolic heart failure (HCC); Paroxysmal atrial [...] Contrast Metoprolol Tartrate 11/18/2006 Made pulse low [place] Oil-Black Currant-Vit E 07/10/2010 Verapamil 03/21/2004 Bupropion Hcl 10/30/2009 Makes pt sick in the stomach documented as of this encounter (statuses as of 11/08/2021) Medications Medication Sig Dispensed Refills Start Date [...] day. . 2 Bottle 3 10/01/2016 Active Additional Information Patient not taking. Reported [...] Take 2.5 mg by mouth daily. 0 12/13/2020 Active CareSens N Voice System Device Use as directed. Tests three times daily/E11.9 0 Active CareSens N Glucose Test In Vitro Strip (Glucose Blood) Test as directed. Tests three times daily 0 Active Aspirin 81 MG Oral Tablet Delayed Release Take 81 mg by mouth daily. 0 02/05/2021 Active Advair HFA 230-21 MCG/ACT Inhalation Aerosol (fluticasone-[place] rol) Inhale 2 Puffs by mouth 2 times a day. 0 04/09/2021 Active Zafirlukast 20 MG Oral [...] Respimat 1.25 MCG/ACT Inhalation Aerosol Solution (Tiotropium [place] Monohydrate) Inhale by mouth. 0 Active Furosemide [...] FOR NAUSEA 60 Tablet 2 11/07/2021 Active documented as of this encounter (statuses as of 11/08/2021) Active Problems Problem Noted Date History of [...] as of this encounter (statuses as of 11/08/2021) Resolved Problems Problem Noted Date Resolved Date [...] Hypoxemia 10/08/2011 10/30/2015 Genetic Sleep Disorder Research Other*[id number] 07/25/2011 05/15/2016 Diverticulitis of colon 07/25/2011 01/06/20 [...] as of this encounter (statuses as of 11/08/2021) Immunizations Name Administration Dates Next Due COVID-19 mRNA, LNP-s, No Pre serve, 2-Dose Series ([employer] 08/21/2021,12/22/2020,2020 Hepatitis B, 20+ yrs 10/01/2017,04/21/2017,03/20 Pneumococcal [...] Cardiology Dulce Merino CRNP [address] [place] [address] 11/15/2021 Office Visit Internal Medicine [facility] [address] 12/27/2021 Office Visit Cardiology Hammad Lopez DO [address] [place] [address] Pending Results Name Type Priority Associated Diagnoses Date /Time BASIC METABOLIC PANEL Lab STAT Chronic systolic heart failure (HCC) Paroxysmal atrial fibrillation (HCC) Chronic 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) NICM (nonischemic cardiomyopathy) (HCC) Chronic atrial fibrillation (HCC) Hospital discharge follow-up Presence of Watchman left atrial appendage closure device 11/08/2021 12:58 PM EST Health Maintenance Due Date Last Done [...] Additional history exists CKD PHOS USE SMARTSET 59046 03/09/2022 03/09/2021, 0 03/22/2019 DIABETES-EYE EXAM 03/26/2022 03/26/2021, , 08/10/2019, Additional history exists CKD GFR USE SMARTSET 05933 04/24/202210/25, 09/03/2021, 08/28/2021, Additional history exists Depression Screening, Annual for Pts 12 and Over 08/08/2022 08/08/2021 CKD HGB USE SMARTSET 62287 10/25/202210/25, 08/28/2021, 08/28/2021, Additional history exists Dexa [...] Documents on File Type Date Recorded Patient Procurement Professional Logistics Expl anation Advanced 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 Directive Advanced Directive Advanced Directive Care Teams Police Shift Commander Relationship Specialty Start Date End Date Marcela Pinto MD [address] [facility] [place] [address] PCP - General Internal Medicine 08/04/14 documented as of this encounter
--- OUTSIDE RECORDS SUMMARY | 2023-06-18 02:58 | External Medical Summary ---
Author Name Unknown Address Unknown Organization K01:LAB[facility]ATORY [facility] - [address] [place] [address] Laboratory Report Ordering Provider Test Date Status BUZZ VO 11/08/2021 12:58:23 Final Observation Date Value Abnormality Reference (Units ) Status BUN 11/08/2021 12:58:23 13 6-20 (mg/dL) Final Creatinine 11/08/2021 12:58:23 1.1 Above high normal 0.5-1.0 (mg/dL) Final Glomerular filtration rate/1.73 sq M.predicted [Volume Rate/Area] in Serum, Plasma or Blood by Creatinine-based formula (CKD-EPI) 11/08/2021 12:58:23 52 Below low normal >=60 (mL/min) Final Performing Location LABORATORY [facility] [place] - [address] [place] [address]
--- OUTSIDE RECORDS SUMMARY | 2023-06-18 02:58 | External Medical Summary | Summary of Care ---
Author Name Unknown Organization [place] [address] Care Team Providers Care Desulfurizer Machine Name Role Phone Marcela Pinto MD Primary Care Provider + Reason for Visit * Reason Onset Date Comments Test Results 11/09/2021 Encounter Details Date Type Department Care Team Description 11/09/2021 Telephone Cardiology, [facility] [address] [place] [address] AngeliqueDulce hernandez CRNP [address] [place] [address] Test Results Allergies Active Allergy Reactions Severity Noted Date Comments Valsartan 07/10/2010 Enalapril 05/21/2006 Escitalopram Oxalate Nausea/vomiting 10/11/2009 Nauseated Iodinated Diagnostic Agents Nausea/vomiting 05/2010 IV Contrast Iodine Hives 12/18/2009 IV Contrast Metoprolol Tartrate 11/18/2006 Made pulse low [place] Oil-Black Currant-Vit E 07/10/2010 Verapamil 03/21/2004 Bupropion Hcl 10/30/2009 Makes pt sick in the stomach documented as of this encounter (statuses as of 11/09/2021) Medications Medication Sig Dispensed Refills Start Date [...] Asthma with severity to be determined,COPD, moderate ([facility]) USE ONE NEBULIZER TREATMENT TWICE A DAY DIRECTED FOR WORSENING ASTHMA. J45.909, J44.9 225 mL 1 06/29/2019 Active Albuterol Sulfate (VENTOLIN HFA) 108 (90 Base) MCG/ACT AERS Inhale 2 Puffs by mouth 2 times a day. 0 12/27/2019 Active Lancets MISCIndications:Type 2 diabetes mellitus with hemoglobin A1c goal of less than 7.0% ([facility]) Use as directed. USE TO [...] mg by mouth daily. 0 12/13/2020 Active [employer] Voice System Device Use as directed. Tests [...] Respimat 1.25 MCG/ACT Inhalation Aerosol Solution (Tiotropium [place] Monohydrate) Inhale by mouth. 0 Active Furosemide [...] as of this encounter (statuses as of 11/09/2021) Active Problems Problem Noted Date History of [...] as of this encounter (statuses as of 11/09/2021) Resolved Problems Problem Noted Date Resolved Date [...] Hypoxemia 10/08/2011 10/30/2015 Genetic Sleep Disorder Research Other*[id number] 07/25/2011 05/15/2016 Diverticulitis of colon 07/25/2011 01/06/20 [...] as of this encounter (statuses as of 11/09/2021) Immunizations Name Administration Dates Next Due COVID-19 [...] encounter Miscellaneous Notes * Telephone Encounter - FAYE Oneal - 11/09/2021 1:52 PM EST Pt notified via phone and states understanding. FAYE Oneal * Telephone Encounter - FAYE Oneal - 11/09/2021 1:51 PM EST ----- Message from NIECY Holder sent at 11/09/2021 11:02 AM EST ----- Slight decline in renal function. Patient to be seen in office on 11/12- remain on lasix as ordered.Encourage fluid intake of 50 oz daily. Will discuss further in office. documented in this encounter Plan of Treatment Upcoming Encounters Date Type Specialty Care Team Description 11/12/2021 Office Visit Cardiology Dulce Merino CRNP [address] [place] [address] 11/15/2021 Office Visit Internal Medicine Marcela Pinto MD [address] [facility] [place] [address] 12/27/2021 Office Visit Cardiology Hammad Lopez, DO [address] [place] [address] Health Maintenance Due Date Last Done Comments Zoster Vaccines (2 of 3) 08/31/2012 07/06/2012 DIABETES-URINE ALBUMIN/CREATININE EVERY 12 MONTHS 07/09/2020 07/09/2019, 07/27/2018, 05/19/2017, Additional history exists DIABETES-FOOT EXAM 12/21/2021 12/21/2020, 0 10/19/2019, 01/05/2019, Additional history exists COVID-19 Vaccine (4 - Booster for Pfizer series) 01/19/2022 08/21/2021, 12/22/2020, 2020 DIABETES-HGBA1C EVERY 6 MONTHS 02/20/2022 08/23/2021, 03/09/2021, 12/05/2020, Additional history exists CKD PHOS USE SMARTSET 47223 03/09/2022 03/09/2021, 0 03/22/2019 DIABETES-EYE EXAM 03/26/2022 03/26/2021, , 08/10/2019, Additional history exists CKD GFR USE SMARTSET 69763 05/08/202211/08, 10/25/2021, 09/03/2021, Additional history exists Depression Screening, Annual for Pts 12 and Over 08/08/2022 08/08/2021 CKD HGB USE SMARTSET 33759 10/25/202210/25, 08/28/2021, 08/28/2021, Additional history exists Dexa [...] Documents on File Type Date Recorded Patient Logistics Coordinator Expl 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 Directive Advanced Directive Advanced Directive Care Teams Desulfurizer Machine Relationship Specialty Start Date End Date Marcela Pinto MD [address] [place] [address] PCP - General Internal Medicine 08/04/14 documented as of this encounter
--- OUTSIDE RECORDS SUMMARY | 2023-06-18 02:58 | External Medical Summary ---
Author Name Unknown Address Unknown Organization K01:LAB[facility]ATORY [facility] - [address] [place] [address] Laboratory Report Ordering Provider Test Date Status ALOK MORGAN 11/19/2021 15:29:51 Final Observation Date Value Abnormality Reference (Units ) Status T4, Free 11/19/2021 15:29:51 0.7 Below low normal 0.9 -1.7 (ng/dL) Final Performing Location [facility] [address] [facility] [address]
--- OUTSIDE RECORDS SUMMARY | 2023-06-18 02:58 | External Medical Summary | Summary of Care ---
Author Name Unknown Organization [place] [address] Care Team Providers Care Pot Tender Name Role Phone Marcela Pinto MD Primary Care Provider + Reason for Visit * Reason Comments Outpatient Testing Encounter Details Date Type Department Care Team Description 11/08/2021 Laboratory Laboratory [address] [place] [phone] [facility] Lab [address] [place] [phone] Chronic systolic heart failure (HCC); Paroxysmal atrial [...] Contrast Metoprolol Tartrate 11/18/2006 Made pulse low [place] Oil-Black Currant-Vit E 07/10/2010 Verapamil 03/21/2004 Bupropion [...] Respimat 1.25 MCG/ACT Inhalation Aerosol Solution (Tiotropium [place] Monohydrate) Inhale by mouth. 0 Active Furosemide [...] Hypoxemia 10/08/2011 10/30/2015 Genetic Sleep Disorder Research Other*[id number] 07/25/2011 05/15/2016 Diverticulitis of colon 07/25/2011 01/06/20 [...] mRNA, LNP-s, No Pre serve, 2-Dose Series ([employer]) 08/21/2021,12/22/2020,2020 Hepatitis B, 20+ yrs 10/01/2017,04/21/2017,03/20 Pneumococcal [...] Cardiology Dulce Merino CRNP [address] [place] [address] 11/15/2021 Office Visit Internal Medicine [facility] [address] 12/27/2021 Office Visit Cardiology Hammad Lopez DO [address] [place] [address] Pending Results Name Type Priority Associated Diagnoses [...] Additional history exists CKD PHOS USE SMARTSET 32765 03/09/2022 03/09/2021, 0 03/22/2019 DIABETES-EYE EXAM 03/26/2022 03/26/2021, , 08/10/2019, Additional history exists CKD GFR USE SMARTSET 23796 04/24/202210/25, 09/03/2021, 08/28/2021, Additional history exists Depression Screening, Annual for Pts 12 and Over 08/08/2022 08/08/2021 CKD HGB USE SMARTSET 50745 10/25/202210/25, 08/28/2021, 08/28/2021, Additional history exists Dexa [...] on File Type Date Recorded Patient Manager Music Expl anation Advanced 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 Directive Advanced Directive Advanced Directive Care Teams Pot Tender Relationship Specialty Start Date End Date Marcela Pinto MD [address] [place] [address] PCP - General Internal Medicine 08/04/14 documented as of this encounter
--- OUTSIDE RECORDS SUMMARY | 2023-06-18 02:59 | External Medical Summary | Summary of Care ---
Author Name Unknown Organization [place] [address] Care Team Providers Care Clip Baker Name Role Phone Marcela Pinto MD Primary Care Provider + Encounter Details Date Type Department Care Team Description 07/12/2021 Scan Encounter General Internal Medicine [facility] [address] [place] [address] Marcela Pinto MD [address] [place] [address] <No scans attached> Allergies Active Allergy Reactions Severity Noted Date Comments Valsartan 07/10/2010 Enalapril 05/21/2006 Escitalopram Oxalate Nausea/vomiting 10/11/2009 Nauseated Iodinated Diagnostic Agents Nausea/vomiting 05/2010 IV Contrast Iodine Hives 12/18/2009 IV Contrast Metoprolol Tartrate 11/18/2006 Made pulse low [place] Oil-Black Currant-Vit E 07/10/2010 Verapamil 03/21/2004 Bupropion Hcl 10/30/2009 Makes pt sick in the stomach documented as of this encounter (statuses as of 10/18/2021) Medications Medication Sig Dispensed Refills Start Date [...] Bottle 3 10/01/2016 Active Additional Information Patient taking differently: 17 g Oral DAILY PRN, Constipation, One cap full in juice, to effect 1 stool per day. ., Reported on 04/24/2021 Multiple Vitamins-Minerals (ONE DAILY MULTIVITAMIN WOMEN) TABS one pill each day 0 04/21/2017 Active [facility] SENNA 8.6 MG Tablet TAKE 2 TABLETS BY MOUTH EVERY EVENING FOR 10 DAYS NEEDED FOR CONSTIPATION 0 11/26/2017 Active docusate sodium (COLACE) 100 MG Capsule Take 1 Cap by mouth daily. 90 Cap 0 03/31/2019 Active ferrous sulfate (FEOSOL) 325 (65 FE) MG Tablet One tablet every day 60 Tab 11 04/16/2019 Active albuterol [...] mg by mouth daily. 0 12/13/2020 Active RETAIL PRO System Device Use as directed. Tests three [...] Friday only. 30 Tab 3 07/13/2021 Active documented as of this encounter (statuses as of 10/18/2021) Active Problems Problem Noted Date History of [...] as of this encounter (statuses as of 10/18/2021) Resolved Problems Problem Noted Date Resolved Date [...] Hypoxemia 10/08/2011 10/30/2015 Genetic Sleep Disorder Research Other*[id number] 07/25/2011 05/15/2016 Diverticulitis of colon 07/25/2011 01/06/20 [...] as of this encounter (statuses as of 10/18/2021) Immunizations Name Administration Dates Next Due COVID-19 mRNA, LNP-s, No Pre serve, 2-Dose Series ([employer]) 12/22/2020,2020 Hepatitis B, 20+ yrs 10/01/2017,04/21/2017,03/20 Pneumococcal Conjugate [...] Encounters Date Type Specialty Care Team Description 10/19/2021 Office Visit Cardiology Dulce Merino CRNP [address] [place] [address] 11/15/2021 [facility] Visit [facility] [address] 12/27/2021 Office Visit Cardiology Hammad Lopez DO [address] [place] [address] Health Maintenance Due Date Last Done Comments Zoster Vaccines (2 of 3) 08/31/2012 07/06/2012 DIABETES-FOOT EXAM 12/21/2021 12/21/2020, 0 10/19/2019, 01/05/2019, Additional history exists COVID-19 Vaccine (4 - Booster for Pfizer series) 02/18/2022 08/21/2021, 12/22/2020, 2020 DIABETES-HGBA1C EVERY 6 MONTHS 02/20/2022 08/23/2021, 03/09/2021, 12/05/2020, Additional history exists CKD GFR USE SMARTSET 93685 03/03/202209/03, 08/28/2021, 07/19/2021, Additional history exists CKD PHOS USE SMARTSET 28797 03/09/2022 03/09/2021, 0 03/22/2019 DIABETES-EYE EXAM 03/26/2022 03/26/2021, , 08/10/2019, Additional history exists Depression Screening, Annual for Pts 12 and Over 08/08/2022 08/08/2021 CKD HGB USE SMARTSET 90020 08/28/202208/28, 08/28/2021, 08/23/2021, Additional history exists Dexa Scan 08/08/2025 08/08/2020, [...] Documents on File Type Date Recorded Patient Media Aid Expl anation Advanced 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 Directive Advanced Directive Advanced Directive Care Teams Clip Baker Relationship Specialty Start Date End Date Marcela Pinto MD [address] [place] [address] PCP - General Internal Medicine 08/04/14 documented as of this encounter
--- OUTSIDE RECORDS SUMMARY | 2023-06-18 02:59 | External Medical Summary ---
Author Name Unknown Address Unknown Organization [facility] [address] [place] [id number] Laboratory Report Ordering Provider Test Date Status BUZZ VO 10/25/2021 12:04:17 Final Observation Date Value Abnormality Reference (Units ) Status BUN 10/25/2021 12:04:17 14 6-20 (mg/dL) Final Creatinine 10/25/2021 12:04:17 0.9 0.5-1.0 (mg/dL) Final Glomerular filtration rate/1.73 sq M.predicted [Volume Rate/Area] in Serum, Plasma or Blood by Creatinine-based formula (CKD-EPI) 10/25/2021 12:04:17 62 >=60 (mL/min) Final Performing Location [facility] [address] [place] [id number]
--- OUTSIDE RECORDS SUMMARY | 2023-06-18 02:59 | External Medical Summary | Summary of Care ---
Author Name Unknown Organization [place] [address] Care Team Providers Care Coal Miner Name Role Phone Alex Pinto MD Primary Care Provider + Reason for Visit * Reason Comments eRx-Medication Refill Encounter Details Date Type Department Care Team Description 09/28/2021 Refill General Internal Medicine [facility] [address] [facility] [place] [address] Alex Pinto MD [address] [place] [address] HTN, goal below 140/90 Allergies Active Allergy Reactions Severity Noted Date Comments Valsartan 07/10/2010 Enalapril 05/21/2006 Escitalopram Oxalate Nausea/vomiting 10/11/2009 Nauseated Iodinated Diagnostic Agents Nausea/vomiting 05/2010 IV Contrast Iodine Hives 12/18/2009 IV Contrast Metoprolol Tartrate 11/18/2006 Made pulse low [place] Oil-Black Currant-Vit E 07/10/2010 Verapamil 03/21/2004 Bupropion Hcl 10/30/2009 Makes pt sick in the stomach documented as of this encounter (statuses as of 09/28/2021) Medications Medication Sig Dispensed Refills Start Date [...] Bottle 3 6 Active Additional Information Patient taking differently: 17 [...] One tablet every day 60 Tab 11 9 Active albuterol sulfate (PROVENTIL) (2.5 MG/3ML) 0.083% nebulizer solutionIndication s:Asthma with severity to be determined,COPD, moderate ([facility]) USE ONE NEBULIZER TREATMENT TWICE A DAY DIRECTED FOR WORSENING ASTHMA. J45.909, J44.9 225 mL 1 9 Active Albuterol Sulfate (VENTOLIN HFA) 108 (90 Base) MCG/ACT AERS Inhale 2 Puffs by mouth 2 times a day. 0 0 Active Lancets MISCIndications:Ty pe 2 diabetes mellitus with hemoglobin A1c goal of less than 7.0% ([facility]) Use as directed. USE [...] mg by mouth daily. 0 1 Active Dicyclomine HCl 20 MG Oral Tablet (Bentyl)Indication s:Chronic constipation TAKE 1 TABLET BY MOUTH EVERY DAY 90 Tab 2 1 Active CareSens N Voice System Device [...] mouth daily. 90 Tab 3 1 Active Metoprolol Succinate ER 25 MG Oral Tablet Extended Release 24 Hour (toPROL XL)Indications:Chr onic 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 135 Tab 3 1 Active Spironolactone 25 MG Oral Tablet (Aldactone) Take 0.5 Tabs by mouth once a day on Friday, Friday, and Friday only. 30 Tab 3 1 Active Glimepiride 2 MG Oral Tablet (Amaryl) TAKE 1 TABLET BY MOUTH EVERY DAY WITH BREAKFAST 30 Tab 2 1 Active Additional Information Patient taking differently: 1 mg Oral BEFORE BREAKFAST, Reported on 08/23/2021 Promethazine HCl 25 MG Oral Tablet (Phenergan)Indicat ions:Generalized osteoarthritis TAKE 1 TABLET BY MOUTH EVERY 6 HOURS NEEDED FOR NAUSEA 60 Tab 2 1 Active Ipratropium-Albute rol 20-100 MCG/ACT Inhalation Aerosol Solution (Combivent Respimat)Indicatio ns:Asthma with severity to be determined,COPD, moderate (HCC) TAKE 1 PUFF BY MOUTH 4 TIMES A DAY 12 g 0 1 Active Zoster Vac Recomb Adjuvanted 50 MCG/0.5ML Intramuscular Suspension Reconstituted (Shingrix) Inject 0.5 mL into a large muscle now and repeat dose in 60 to 180 days 1 Each 1 1 Active HYDROcodone-Acetam inophen 5-325 MG Oral TabletIndications: Generalized osteoarthritis Take 1 Tablet by mouth every 6 hours as needed for Pain, Mild. 120 Tablet 0 1 Active Furosemide 40 MG Oral Tablet [...] EVERY DAY 90 Tablet 3 1 Active Klor-Con M20 20 MEQ Oral Tablet Extended Release (Potassium Chloride Annalisa ER)Indications:HTN , goal below 140/90 TAKE 1 TABLET BY MOUTH EVERY DAY 90 Tab 1 1 09/28/20 21 Discontinued documented as of this encounter (statuses as of 09/28/2021) Active Problems Problem Noted Date History of [...] as of this encounter (statuses as of 09/28/2021) Resolved Problems Problem Noted Date Resolved Date Asthma in remission 01/09/2021 03/05/2021 Asthma, mild persistent 01/09/2021 03/05/20 21 Asthma, moderate persistent 01/09/20212 01/2021 Asthma, severe persistent 01/09/20212020 Intermittent asthma [...] Hypoxemia 10/08/2011 10/30/2015 Genetic Sleep Disorder Research Other*[id number] 07/25/2011 05/15/2016 Diverticulitis of colon 07/25/2011 01/06/20 [...] as of this encounter (statuses as of 09/28/2021) Immunizations Name Administration Dates Next Due COVID-19 mRNA, LNP-s, No Pre serve, 2-Dose Series ([employer]) 08/21/2021,12/22/2020,2020 Hepatitis B, 20+ yrs 10/01/2017,04/21/2017,03/20 Pneumococcal [...] encounter Miscellaneous Notes * Telephone Encounter - Hellen Gambino RPh - 09/28/2021 11:31 AM EST Signed Prescriptions: Disp Refills Klor-Con M20 20 MEQ Oral Tablet Extended R*90 Tab*3 Sig: TAKE 1 TABLET BY MOUTH EVERY DAYAuthorizing Provider: ALEX PINTO User: HELLEN GAMBINO- documented in this encounter Plan of Treatment Upcoming Encounters Date Type Specialty Care Team Description 11/15/2021 Office Visit Internal Medicine Alex Pinto MD [address] [place] [address], [place] [address] 12/27/2021 Office Visit Cardiology Hammad Lopez, DO [address] [place] [address] Health Maintenance Due Date Last Done Comments Zoster Vaccines (2 of 3) 08/31/2012 07/06/2012 DIABETES-FOOT EXAM 12/21/2021 12/21/2020, 0 10/19/2019, 01/05/2019, Additional history exists COVID-19 Vaccine (4 - Booster for Pfizer series) 02/18/2022 08/21/2021, 12/22/2020, 2020 DIABETES-HGBA1C EVERY 6 MONTHS 02/20/2022 08/23/2021, 03/09/2021, 12/05/2020, Additional history exists CKD GFR USE SMARTSET 44271 03/03/202209/03, 08/28/2021, 07/19/2021, Additional history exists CKD PHOS USE SMARTSET 73863 03/09/2022 03/09/2021, 0 03/22/2019 DIABETES-EYE EXAM 03/26/2022 03/26/2021, , 08/10/2019, Additional history exists CKD HGB USE SMARTSET 06517 08/28/202208/28, 08/28/2021, 08/23/2021, Additional history exists Dexa Scan 08/08/2025 08/08/2020, 04/13, 06/19/2010, Additional history exists DTaP,Tdap,and Td Vaccines (2 - Td or Tdap) 06/04/2028 06/04/2018, 02/28/2009 Pneumococcal Vaccine: 65+ Years Completed 03/28/2015, 05/21/2006 Influenza Vaccine (FLU shot) Completed , 06/22/2020, 07/09/2019, Additional history exists MENINGOCOCCAL (MENACTRA/MENVEO) Aged Out No longer eligible based on patient's age to complete this topic documented as of this encounter Implants Not on filedocumented as of this encounter Visit Diagnoses Diagnosis HTN, goal below 140/90 Unspecified essential hypertension documented in this encounter Advance Directives Documents on File Type Date Recorded Patient Business Project Manager Expl 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 Advanced Directive Advanced Directive Care Teams Coal Miner Relationship Specialty Start Date End Date Alex Pinto MD [address] [place] [address] PCP - General Internal Medicine 08/04/14 documented as of this encounter
--- OUTSIDE RECORDS SUMMARY | 2023-06-18 02:59 | External Medical Summary ---
Author Name Unknown Address Unknown Organization [facility] [address] [place] [address] Laboratory Report Ordering Provider Test Date Status BUZZ VO 10/25/2021 12:04:17 Final Observation Date Value Abnormality Reference (Units ) Status BNP, Pro-hormone 10/25/2021 12:04:17 4952 Above high no rmal <300 (pg/mL) Final Performing Location [facility] - [address] [place] [address]
--- OUTSIDE RECORDS SUMMARY | 2023-06-18 02:59 | External Medical Summary ---
Author Name Unknown Address Unknown Organization [facility] [address] [place] [id number] Laboratory Report Ordering Provider Test Date Status BUZZ VO 10/25/2021 12:04:17 Final Observation Date Value Abnormality Reference (Units ) Status WBC, Total 10/25/2021 12:04:17 8.39 4.00-10.8 0 (K/uL) Final RBC 10/25/2021 12:04:17 3.36 Below low normal 3.8 5-5.15 (M/uL) Final Hemoglobin 10/25/2021 12:04:17 9.2 Below low normal 12 .0-15.3 (g/dL) Final HCT 10/25/2021 12:04:17 31.2 Below low normal 36. 0-45.2 (%) Final MCV 10/25/2021 12:04:17 92.9 81.5-97.5 (fL) Final MCH 10/25/2021 12:04:17 27.4 27.0-34.0 (pg) Final MCHC 10/25/2021 12:04:17 29.5 Below low normal 32. 0-36.0 (g/dL) Final RDW 10/25/2021 12:04:17 15.1 11.5-15.5 (%) Final Platelets 10/25/2021 12:04:17 319 140-400 (K /uL) Final MPV 10/25/2021 12:04:17 9.5 6.6-11.1 ( fL) Final Performing Location [facility] [address] [place] [address]
--- OUTSIDE RECORDS SUMMARY | 2023-06-18 02:59 | External Medical Summary | Summary of Care ---
Author Name Unknown Organization [place] [address] Care Team Providers Care Professor Of History Name Role Phone Alex Pinto MD Primary Care Provider + Reason for Visit * Reason Comments eRx-Medication Refill Encounter Details Date Type Department Care Team Description 10/04/2021 Refill General Internal Medicine [facility] [address] [place] [place] [address] Alex Pinto MD [address] [facility] [place] [address] Chronic constipation Allergies Active Allergy Reactions Severity Noted Date Comments Valsartan 07/10/2010 Enalapril 05/21/2006 Escitalopram Oxalate Nausea/vomiting 10/11/2009 Nauseated Iodinated Diagnostic Agents Nausea/vomiting 05/2010 IV Contrast Iodine Hives 12/18/2009 IV Contrast Metoprolol Tartrate 11/18/2006 Made pulse low [place] Oil-Black Currant-Vit E 07/10/2010 Verapamil 03/21/2004 Bupropion Hcl 10/30/2009 Makes pt sick in the stomach documented as of this encounter (statuses as of 10/04/2021) Medications Medication Sig Dispensed Refills Start Date [...] the evening. 135 Tablet 3 1 Active Dicyclomine HCl 20 MG Oral Tablet (Bentyl)Indication s:Chronic constipation TAKE 1 TABLET BY MOUTH EVERY DAY 90 Tab 2 1 10/04/20 21 Discontinued documented as of this encounter (statuses as of 10/04/2021) Active Problems Problem Noted Date History of [...] as of this encounter (statuses as of 10/04/2021) Resolved Problems Problem Noted Date Resolved Date [...] Hypoxemia 10/08/2011 10/30/2015 Genetic Sleep Disorder Research Other*[id number] 07/25/2011 05/15/2016 Diverticulitis of colon 07/25/2011 01/06/20 [...] as of this encounter (statuses as of 10/04/2021) Immunizations Name Administration Dates Next Due COVID-19 mRNA, LNP-s, No Pre serve, 2-Dose Series ([employer]) 08/21/2021,12/22/2020,2020 Hepatitis B, 20+ yrs 10/01/2017,04/21/2017,03/20 Pneumococcal [...] Telephone Encounter - Alex Pinto MD - 10/04/2021 12:15 PM EST Signed Prescriptions: Disp Refills Dicyclomine HCl 20 MG Oral Tablet (Bentyl) 90 Tab*2 Sig: TAKE 1 TABLET BY MOUTH EVERY DAY Authorizing Provider: ALEX PINTO * Telephone Encounter - Sharonda Clark [facility] - 10/04/2021 9:24 AM EST Pending Prescriptions: Disp Refills Dicyclomine HCl 20 MG Oral Tablet [Pharmac*90 Tab*2 Sig: TAKE 1 TABLET BY MOUTH EVERY DAY * Telephone Encounter - Sharonda Clark [facility] - 10/04/2021 9:24 AM EST Refill pharmacists currently not authorized to approve refills for this class of medication per refill protocol. Please approve if appropriate. Thank You, Sharonda Clark [facility]ist [facility] 10/04/2021, 9:24 AM documented in this encounter Plan of Treatment Upcoming Encounters Date Type Specialty Care Team Description 11/15/2021 Office Visit Internal Medicine Alex Pinto MD [address] [place] [address] 12/27/2021 Office Visit Cardiology Hammad Lopez, [address] [place] [address] Health Maintenance Due Date Last Done Comments Zoster Vaccines (2 of 3) 08/31/2012 07/06/2012 DIABETES-FOOT EXAM 12/21/2021 12/21/2020, 0 10/19/2019, 01/05/2019, Additional history exists COVID-19 Vaccine (4 - Booster for Pfizer series) 02/18/2022 08/21/2021, 12/22/2020, 2020 DIABETES-HGBA1C EVERY 6 MONTHS 02/20/2022 08/23/2021, 03/09/2021, 12/05/2020, Additional history exists CKD GFR USE SMARTSET 25288 03/03/202209/03, 08/28/2021, 07/19/2021, Additional history exists CKD PHOS USE SMARTSET 33385 03/09/2022 03/09/2021, 0 03/22/2019 DIABETES-EYE EXAM 03/26/2022 03/26/2021, , 08/10/2019, Additional history exists Depression Screening, Annual for Pts 12 and Over 08/08/2022 08/08/2021 CKD HGB USE SMARTSET 40240 08/28/202208/28, 08/28/2021, 08/23/2021, Additional history exists Dexa [...] Documents on File Type Date Recorded 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
--- OUTSIDE RECORDS SUMMARY | 2023-06-18 02:59 | External Medical Summary | Summary of Care ---
Author Name Unknown Organization [place] [address] Care Team Providers Care Director Of Income Tax Name Role Phone Marcela Pinto MD Primary Care Provider + Reason for Visit * Reason Onset Date Comments Test Results 09/24/2021 Encounter Details Date Type Department Care Team Description 09/24/[address] [place] [address] Valentine Duke PA-C [address] [place] [address] [place] [address] Test Results Allergies Active Allergy Reactions Severity Noted Date Comments Valsartan 07/10/2010 Enalapril 05/21/2006 Escitalopram Oxalate Nausea/vomiting 10/11/2009 Nauseated Iodinated Diagnostic Agents Nausea/vomiting 05/2010 IV Contrast Iodine Hives 12/18/2009 IV Contrast Metoprolol Tartrate 11/18/2006 Made pulse low [place] Oil-Black Currant-Vit E 07/10/2010 Verapamil 03/21/2004 Bupropion Hcl 10/30/2009 Makes pt sick in the stomach documented as of this encounter (statuses as of 09/25/2021) Medications Medication Sig Dispensed Refills Start Date [...] mg by mouth daily. 0 12/13/2020 Active Dicyclomine HCl 20 MG Oral Tablet (Bentyl)Indications: Chronic constipation TAKE 1 TABLET BY MOUTH EVERY DAY 90 Tab 2 01/25/2021 Active CareSens N Voice System Device Use as directed. Tests three times daily/E11.9 0 Active CareSens N Glucose Test In Vitro Strip (Glucose Blood) Test as directed. Tests three times daily 0 Active Klor-Con M20 20 MEQ Oral Tablet Extended Release (Potassium Chloride Annalias ER)Indications:HTN, goal below 140/90 TAKE 1 TABLET BY MOUTH EVERY DAY 90 Tab 1 04/13/2021 Active Aspirin 81 MG Oral Tablet Delayed [...] mouth daily. 90 Tab 3 06/26/2021 Active Metoprolol Succinate ER 25 MG Oral Tablet Extended Release 24 Hour (toPROL XL)Indications: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 135 Tab 3 07/12/2021 Active Spironolactone 25 MG Oral Tablet (Aldactone) Take 0.5 Tabs by mouth once a day on Friday, Friday, and Friday only. 30 Tab 3 07/13/2021 Active Glimepiride 2 MG Oral Tablet (Amaryl) TAKE 1 TABLET BY MOUTH EVERY DAY WITH BREAKFAST 30 Tab 2 07/18/2021 Active Additional Information Patient taking differently: 1 mg Oral BEFORE BREAKFAST, Reported on 08/23/2021 Promethazine HCl 25 MG Oral Tablet (Phenergan)Indicatio ns:Generalized osteoarthritis TAKE 1 TABLET BY MOUTH EVERY 6 HOURS NEEDED FOR NAUSEA 60 Tab 2 07/18/2021 Active Ipratropium-Albutero l 20-100 MCG/ACT Inhalation Aerosol Solution (Combivent Respimat)Indications :Asthma with severity to be determined,COPD, moderate (HCC) TAKE 1 PUFF BY MOUTH 4 TIMES A DAY 12 g 0 08/09/2021 Active Zoster Vac Recomb Adjuvanted 50 MCG/0.5ML Intramuscular Suspension Reconstituted (Shingrix) Inject 0.5 mL into a large muscle now and repeat dose in 60 to 180 days 1 Each 1 08/09/2021 Active HYDROcodone-Acetamin ophen 5-325 MG Oral TabletIndications:Ge neralized osteoarthritis Take 1 Tablet by mouth every 6 hours as needed for Pain, Mild. 120 Tablet 0 08/29/2021 Active Furosemide 40 MG Oral Tablet (Lasix)Indications:C hronic systolic heart failure (HCC),Paroxysmal atrial fibrillation (HCC),Chronic 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),NICM (nonischemic cardiomyopathy) (HCC),Chronic atrial fibrillation (HCC),Hospital discharge follow-up,Presence of Watchman left atrial appendage closure device 60 mg in AM, 40 mg in PM 270 Tablet 1 08/29/2021 Active methIMAzole 10 MG Oral Tablet (Tapazole)Indication s:Hyperthyroidism TAKE 1 TABLET BY MOUTH EVERY DAY 90 Tablet 1 09/05/2021 Active Omeprazole 20 MG Oral Capsule Delayed Release (PriLOSEC)Indication s:Ischemic colitis (HCC) TAKE 1 CAPSULE BY MOUTH TWICE A DAY 180 Capsule 3 09/20/2021 Active documented as of this encounter (statuses as of 09/25/2021) Active Problems Problem Noted Date History of [...] as of this encounter (statuses as of 09/25/2021) Resolved Problems Problem Noted Date Resolved Date [...] Hypoxemia 10/08/2011 10/30/2015 Genetic Sleep Disorder Research Other*[id number] 07/25/2011 05/15/2016 Diverticulitis of colon 07/25/2011 01/06/20 [...] as of this encounter (statuses as of 09/25/2021) Immunizations Name Administration Dates Next Due COVID-19 mRNA, LNP-s, No Pre serve, 2-Dose Series (Kik) 08/21/2021,12/22/2020,2020 Hepatitis B, 20+ yrs 10/01/2017,04/21/2017,03/20 Pneumococcal [...] encounter Miscellaneous Notes * Telephone Encounter - Valentine Duke PA-C - 09/25/2021 7:28 AM EST Noted * Telephone Encounter - PARIS Wolfe - 09/24/2021 5:24 PM EST Spoke with patient. Agreed to increase water consumption. Says that she has dealt with constipation "most of her life". Dr Pinto ordered a fecal occult bloodtest on her last month that she said she still needs to complete. She was told not to use Miralax all the time, but she is going to try this tomorrow and see if she feels any relief or not. * Telephone Encounter - Valentine Duke PA-C - 09/24/2021 1:35 PM EST She should increase her water consumption over the next few days, but if no improvement, recommend repeating urine culture. May be vaginal rather than urinary. Or is she constipated? Possibly lower abdominal pressure could be related. If not, may need Travel Rn exam. * Telephone Encounter - PARIS Wolfe - 09/24/2021 1:30 PM EST Spoke with patient. States that she does not have any itching. Still having complaints of burning with urination, and having pains in her lower stomach. States no changes since seeing her last week. * Telephone Encounter - PARIS Wolfe - 09/24/2021 10:33 AM EST ----- Message from Valentine Duke PA-C sent at 09/24/2021 7:43 AM EST ----- Please let patient know: Her urine culture was negative. If she is still having symptoms, maybe she could have a yeast infection? Or something else going on. See if she has any itching. Thanks documented in this encounter Plan of Treatment Upcoming Encounters Date Type Specialty Care Team Description 11/15/2021 Office Visit [facility] [address] [facility] [address] [facility] Office Visit Cardiology Hammad Lopez, DO [address] [facility] [place] [address] Health Maintenance Due Date Last Done Comments Zoster Vaccines (2 of 3) 08/31/2012 07/06/2012 DIABETES-FOOT EXAM 12/21/2021 12/21/2020, 0 10/19/2019, 01/05/2019, Additional history exists COVID-19 Vaccine (4 - Booster for Pfizer series) 02/18/2022 08/21/2021, 12/22/2020, 2020 DIABETES-HGBA1C EVERY 6 MONTHS 02/20/2022 08/23/2021, 03/09/2021, 12/05/2020, Additional history exists CKD GFR USE SMARTSET 32009 03/03/202209/03, 08/28/2021, 07/19/2021, Additional history exists CKD PHOS USE SMARTSET 58254 03/09/2022 03/09/2021, 0 03/22/2019 DIABETES-EYE EXAM 03/26/2022 03/26/2021, , 08/10/2019, Additional history exists CKD HGB USE SMARTSET 16577 08/28/202208/28, 08/28/2021, 08/23/2021, Additional history exists Dexa [...] Documents on File Type Date Recorded 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
--- OUTSIDE RECORDS SUMMARY | 2023-06-18 02:59 | External Medical Summary | Summary of Care ---
Author Name Unknown Organization [place] [address] Care Team Providers Care Security Monitor Name Role Phone Alex Pinto MD Primary Care Provider + Reason for Visit * Reason Comments eRx-Medication Refill Encounter Details Date Type Department Care Team Description 10/11/2021 Refill General Internal Medicine [facility] [address] [facility] [place] [id number] Alex Pinto MD [address] [facility] [place] [address] Asthma with severity to be determined; COPD, moderate ([facility]) Allergies Active Allergy Reactions Severity Noted Date Comments Valsartan 07/10/2010 Enalapril 05/21/2006 Escitalopram Oxalate Nausea/vomiting 10/11/2009 Nauseated Iodinated Diagnostic Agents Nausea/vomiting 05/2010 IV Contrast Iodine Hives 12/18/2009 IV Contrast Metoprolol Tartrate 11/18/2006 Made pulse low [place] Oil-Black Currant-Vit E 07/10/2010 Verapamil 03/21/2004 Bupropion Hcl 10/30/2009 Makes pt sick in the stomach documented as of this encounter (statuses as of 10/11/2021) Medications Medication Sig Dispensed Refills Start Date [...] A DAY 12 g 1 1 Active Ipratropium-[place] rol 20-100 MCG/ACT Inhalation Aerosol Solution (Combivent Respimat)Indicatio ns:Asthma with severity to be determined,COPD, moderate (HCC) TAKE 1 PUFF BY MOUTH 4 TIMES A DAY 12 g 0 1 10/11/20 21 Discontinued documented as of this encounter (statuses as of 10/11/2021) Active Problems Problem Noted Date History of [...] as of this encounter (statuses as of 10/11/2021) Resolved Problems Problem Noted Date Resolved Date [...] Hypoxemia 10/08/2011 10/30/2015 Genetic Sleep Disorder Research Other*[id number] 07/25/2011 05/15/2016 Diverticulitis of colon 07/25/2011 01/06/20 [...] as of this encounter (statuses as of 10/11/2021) Immunizations Name Administration Dates Next Due COVID-19 mRNA, LNP-s, No Pre serve, 2-Dose Series (GeckoGo) 08/21/2021,12/22/2020,2020 Hepatitis B, 20+ yrs 10/01/2017,04/21/2017,03/20 Pneumococcal [...] Notes * Telephone Encounter - Gabe Quintana RPh - 10/11/2021 6:29 PM EST Signed Prescriptions: Disp Refills Ipratropium-Albuterol 20-100 MCG/ACT Inhal*12 g 1 Sig: TAKE 1 PUFF BY MOUTH 4 TIMES A DAYAuthorizing Provider: ALEX PINTO User: GABE QUINTANA documented in this encounter Plan of Treatment Upcoming Encounters Date Type Specialty Care Team Description 11/15/2021 Office Visit Internal Medicine Alex Pinto MD [address] [place] [address] 12/27/2021 Office Visit Cardiology Hammad Lopez DO [address] [place] [address] Health Maintenance Due Date Last Done Comments Zoster Vaccines (2 of 3) 08/31/2012 07/06/2012 DIABETES-FOOT EXAM 12/21/2021 12/21/2020, 0 10/19/2019, 01/05/2019, Additional history exists COVID-19 Vaccine (4 - Booster for Pfizer series) 02/18/2022 08/21/2021, 12/22/2020, 2020 DIABETES-HGBA1C EVERY 6 MONTHS 02/20/2022 08/23/2021, 03/09/2021, 12/05/2020, Additional history exists CKD GFR USE SMARTSET 70566 03/03/202209/03, 08/28/2021, 07/19/2021, Additional history exists CKD PHOS USE SMARTSET 69303 03/09/2022 03/09/2021, 0 03/22/2019 DIABETES-EYE EXAM 03/26/2022 03/26/2021, , 08/10/2019, Additional history exists Depression Screening, Annual for Pts 12 and Over 08/08/2022 08/08/2021 CKD HGB USE SMARTSET 29818 08/28/202208/28, 08/28/2021, 08/23/2021, Additional history exists Dexa [...] Documents on File Type Date Recorded 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
--- OUTSIDE RECORDS SUMMARY | 2023-06-18 02:59 | External Medical Summary | Summary of Care ---
Author Name Unknown Organization [place] [address] Care Team Providers Care Personal Lines Sales Executive Name Role Phone Alex Pinto MD Primary Care Provider + Reason for Visit * Reason Onset Date Comments Medication Refill 10/10/2021 Encounter Details Date Type Department Care Team Description 10/10/2021 Refill General Internal Medicine [facility] [address] [place] [address] Alex Pinto MD [address] [facility] [place] [address] GENERAL OSTEOARTHROSIS Allergies Active Allergy Reactions Severity Noted Date Comments Valsartan 07/10/2010 Enalapril 05/21/2006 Escitalopram Oxalate Nausea/vomiting 10/11/2009 Nauseated Iodinated Diagnostic Agents Nausea/vomiting 05/2010 IV Contrast Iodine Hives 12/18/2009 IV Contrast Metoprolol Tartrate 11/18/2006 Made pulse low [place] Oil-Black Currant-Vit E 07/10/2010 Verapamil 03/21/2004 Bupropion Hcl 10/30/2009 Makes pt sick in the stomach documented as of this encounter (statuses as of 10/14/2021) Medications Medication Sig Dispensed Refills Start Date [...] 08/23/2021 Promethazine HCl 25 MG Oral Tablet (Phenergan)Indicati ons:Generalized osteoarthritis TAKE 1 TABLET BY MOUTH EVERY 6 HOURS NEEDED FOR NAUSEA 60 Tab 2 1 Active Zoster Vac Recomb Adjuvanted 50 MCG/0.5ML Intramuscular Suspension Reconstituted (Shingrix) Inject 0.5 mL into a large muscle now and repeat dose in 60 to 180 days 1 Each 1 1 Active Furosemide 40 MG Oral Tablet (Lasix)Indications: [...] Oral Tablet Extended Release 24 Hour (toPROL XL)Indications:Rattan Worker akin heart failure with reduced ejection [...] for Pain, Mild. 120 Tablet 0 1 10/10/20 21 Discontinu ed(Refill) documented as of this encounter (statuses as of 10/14/2021) Active Problems Problem Noted Date History of [...] as of this encounter (statuses as of 10/14/2021) Resolved Problems Problem Noted Date Resolved Date [...] Hypoxemia 10/08/2011 10/30/2015 Genetic Sleep Disorder Research Other*[id number] 07/25/2011 05/15/2016 Diverticulitis of colon 07/25/2011 01/06/20 [...] as of this encounter (statuses as of 10/14/2021) Immunizations Name Administration Dates Next Due COVID-19 mRNA, LNP-s, No Pre serve, 2-Dose Series (Elite Form) 08/21/2021,12/22/2020,2020 Hepatitis B, 20+ yrs 10/01/2017,04/21/2017,03/20 Pneumococcal [...] Telephone Encounter - Alex Pinto MD - 10/14/2021 1:14 PM EST Signed Prescriptions: Disp Refills HYDROcodone-Acetaminophen 5-325 MG Oral Ta*120 Ta*0 Sig: Take 1 Tablet by mouth every 6 hours as needed for Pain, Mild. Authorizing Provider: ALEX PINTO * Telephone Encounter - Nicole Saeed LPN - 10/10/2021 11:27 AM EST Pending Prescriptions: Disp Refills HYDROcodone-Acetaminophen 5-325 MG Oral T*120 Ta*0 Sig: Take 1 Tablet by mouth every 6 hours as needed for Pain, Mild. Last Office/Telemedicine Visit: 08/20/2021 11/15/2021 Last date the medication was ordered: 08/29/21 Patient Active Problem List Diagnosis Code Asthma [...] ([facility]) E11.9 Hypercalcemia E83.52 Elevated plasma metanephrines R79.89 Irritable bowel syndrome with constipation K58.1 Ischemic colitis ([facility]) K55.9 HECTOR (generalized anxiety disorder) F41.1 [...] ([facility]) J96.11 Type 2 diabetes mellitus with stage 3a chronic kidney disease ([facility]) E11.22, N18.31 Chronic kidney disease, stage 3a ([facility]) N18.31 Subclinical hyperthyroidism E05.90 History of ESBL E. coli infection Z86.19 Labs: Lab Results Component Value Date/Time CREATININE - [facility] 1.1 (H) 09/03/2021 04:04 PM CREATININE - [facility] 1.0 05/27/2020 04:51 PM CREATININE TIM 221 08/26/2019 02:57 PM CREATININE TIM - [facility] 75 04/24/2021 01:21 PM CREATININE, 24 HOUR URINE - [facility] 1.106 02/26/2017 09:11 AM CREATININE, RANDOM URINE - [facility] 128 07/09/2019 01:57 PM CREATININE-OUTSIDE LAB 1.08 (A) 06/12/2021 12:00 AM Lab Results Component Value Date/Time POTASSIUM - [facility] 4.4 09/03/2021 04:04 PM POTASSIUM - [facility] 4.0 05/27/2020 04:51 PM POTASSIUM-OUTSIDE LAB 4.1 06/12/2021 12:00 AM Lab Results Component Value Date/Time TSH - [facility] 0.42 07/27/2018 11:32 AM [...] Visit Internal Medicine Alex Pinto MD [address] [facility] [place] [address] 12/27/2021 Office Visit Cardiology Hammad Lopez, DO [address] [place] [address] Health Maintenance Due Date Last Done Comments Zoster Vaccines (2 of 3) 08/31/2012 07/06/2012 DIABETES-FOOT EXAM 12/21/2021 12/21/2020, 0 10/19/2019, 01/05/2019, Additional history exists COVID-19 Vaccine (4 - Booster for Pfizer series) 02/18/2022 08/21/2021, 12/22/2020, 2020 DIABETES-HGBA1C EVERY 6 MONTHS 02/20/2022 08/23/2021, 03/09/2021, 12/05/2020, Additional history exists CKD GFR USE SMARTSET 16612 03/03/202209/03, 08/28/2021, 07/19/2021, Additional history exists CKD PHOS USE SMARTSET 89776 03/09/2022 03/09/2021, 0 03/22/2019 DIABETES-EYE EXAM 03/26/2022 03/26/2021, , 08/10/2019, Additional history exists Depression Screening, Annual for Pts 12 and Over 08/08/2022 08/08/2021 CKD HGB USE SMARTSET 81026 08/28/202208/28, 08/28/2021, 08/23/2021, Additional history exists Dexa [...] Documents on File Type Date Recorded 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
--- OUTSIDE RECORDS SUMMARY | 2023-06-18 02:59 | External Medical Summary | Summary of Care ---
Author Name Unknown Organization [place] [address] Care Team Providers Care Hand Pattern Marker Name Role Phone Marcela Pinto MD Primary Care Provider + Reason for Visit * Reason Comments Follow Up Encounter Details Date Type Department Care Team Description 10/25/2021 Office Visit Cardiology, [facility] [address] [place] [address] Dulce Merino CRNP [address] [place] [address] Chronic 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)* Allergies Active Allergy Reactions Severity Noted Date Comments Valsartan 07/10/2010 Enalapril 05/21/2006 Escitalopram Oxalate Nausea/vomiting 10/11/2009 Nauseated Iodinated Diagnostic Agents Nausea/vomiting 05/2010 IV Contrast Iodine Hives 12/18/2009 IV Contrast Metoprolol Tartrate 11/18/2006 Made pulse low [place] Oil-Black Currant-Vit E 07/10/2010 Verapamil 03/21/2004 Bupropion Hcl 10/30/2009 Makes pt sick in the stomach documented as of this encounter (statuses as of 10/25/2021) Medications Medication Sig Dispensed Refills Start Date [...] mg by mouth daily. 0 12/13/2020 Active Bruxie System Device Use as directed. Tests three [...] FOR NAUSEA 60 Tab 2 07/18/2021 Active Zoster Vac Recomb Adjuvanted 50 MCG/0.5ML Intramuscular Suspension Reconstituted (Shingrix) Inject 0.5 mL into a large muscle now and repeat dose in 60 to 180 days 1 Each 1 08/09/2021 Active Furosemide 40 MG Oral Tablet (Lasix)Indications:C [...] fraction and diastolic dysfunction (HCC),NICM (nonischemic cardiomyopathy) ([facility]),Presence of [...] be determined,COPD, moderate ([facility]) TAKE 1 PUFF BY MOUTH 4 TIMES A DAY 12 g 1 10/11/2021 Active Spiriva Respimat 1.25 MCG/ACT Inhalation Aerosol Solution (Tiotropium [place] Monohydrate) Inhale by mouth. 0 Active documented as of this encounter (statuses as of 10/25/2021) Active Problems Problem Noted Date History of [...] as of this encounter (statuses as of 10/25/2021) Resolved Problems Problem Noted Date Resolved Date [...] Hypoxemia 10/08/2011 10/30/2015 Genetic Sleep Disorder Research Other*[id number] 07/25/2011 05/15/2016 Diverticulitis of colon 07/25/2011 01/06/20 [...] as of this encounter (statuses as of 10/25/2021) Immunizations Name Administration Dates Next Due COVID-19 mRNA, LNP-s, No Pre serve, 2-Dose Series (Health Enhancement Products) 08/21/2021,12/22/2020,2020 Hepatitis B, 20+ yrs 10/01/2017,04/21/2017,03/20 Pneumococcal [...] Sign Reading Time Taken Comments Blood Pressure 120/70 10/25/2021 11:28 AM EST Pulse 94 10/25/2021 11:28 AM EST Temperature 36.7 C (98 F) 10/25/2021 11:28 AM EST Respiratory Rate 22 10/25/2021 11:28 AM EST Oxygen Saturation 96% 10/25/2021 11:28 AM EST on 3L 02 Inhaled Oxygen Concentration - - Weight 119.3 kg (263 lb) 10/25/2021 11:28 AM EST Height - - Body Mass Index 43.77 08/20/2021 2:10 PM EST documented in this encounter Patient Instructions * Patient Instructions* NIECY Holder - 10/25/2021 11:48 AM EST 1. Increase lasix x3 days Take 80 mg of lasix twice a day x3 days (Friday and Friday) On Friday resume normal maintenance dose of lasix 60 mg in the morning and 40 mg in the afternoon 2. Lab work today 3. I will call and follow up on Friday to see how you're doing. 4. Call with any concerns in the meantime. [facility] Cardiology: (ask to be connected to [facility] cardiology) 5. Follow a low-sodium diet (less than 2g/2000mg daily). Start daily weights- weigh first thing in the morning after using the bathroom. Should weight increase 3 pounds in 1 day or 5 pounds in 1 week, notify cardiology. documented in this encounter Progress Notes * NIECY Holder - 10/25/2021 11:30 AM EST Cardiology Outpatient Visit 10/25/2021 Primary Occupational Therapy Program Director Dr. Lopez Past medical history: 1. Chronic heart failure with reduced ejection fraction, EF 40-45% 02/2021, NYHA class 3 2. Nonischemic cardiomyopathy, cardiac catheterization performed 11/2020 in [place] demonstrated mild nonobstructive CAD 3. Permanent atrial fibrillation, [id number] score of 5 (age 1, female, CHF, hypertension), no ACs/p watchman implant 11/2019 4. Severe oxygen-dependent COPD with chronic hypercapnia HPI 80-year-old female presenting to the cardiology office today in follow-up for CHF. Was last seen bythe diannigned approximately 6 weeks ago. At her last appointment she was feeling generally well but did note a slight increase in her shortness of breath since the weather change. She was using hernebulizer with relief. Today the patient presents with worsening shortness of breath. Notes that over the holiday she has put on about 8 lb. Notes dietary indiscretions. Denies any exertional chest pain. No palpitations, dizziness or syncopal episodes. No increased lower extremity edema but does notice worsening abdominal bloating. Chronic oxygen therapy and recently had to increased from 2 L to 3. Oxygen today in office was 96%. She states she is compliant with all medications, and offers no side effects. Current Outpatient Medications Medication Sig Dispense Refill VITAMIN D 1000 UNITS PO TABS one tablet daily LUMIGAN 0.01 % OP SOLN INSTILL 1 DROP BY TOPICAL ROUTE EVERY BEDTIME 4 AZOPT 1 % OP SUSP INSTILL 1 DROP BY OPHTHALMIC ROUTE 2 TIMES EVERY DAY INTO BOTH EYES 4 Probiotic Product (PROBIOTIC DAILY) Capsule Take 1 Cap by mouth daily. Multiple Vitamins-Minerals (ONE DAILY MULTIVITAMIN WOMEN) TABS [...] as needed for Nausea. dissolve on tongue. Lisinopril 2.5 MG Oral Tablet (Prinivil) Take 2.5 mg by mouth daily. Aspirin 81 MG Oral Tablet Delayed Release [...] Friday, and Friday only. 30 Tab 3 Glimepiride 2 MG Oral Tablet (Amaryl) TAKE 1 TABLET BY MOUTH EVERY DAY WITH BREAKFAST (Patient taking differently: Take 1 mg by mouth daily before breakfast.) 30 Tab 2 Promethazine HCl 25 MG Oral Tablet (Phenergan) TAKE 1 TABLET BY MOUTH EVERY 6 HOURS NEEDED FOR NAUSEA 60 Tab 2 Furosemide 40 MG Oral Tablet (Lasix) 60 mg in AM, 40 mg in PM 270 Tablet 1 methIMAzole 10 MG Oral Tablet (Tapazole) TAKE 1 TABLET BY MOUTH EVERY DAY 90 Tablet 1 Klor-Con M20 20 MEQ Oral Tablet Extended [...] 4 TIMES A DAY 12 g 1 Spiriva Respimat 1.25 MCG/ACT Inhalation Aerosol Solution (Tiotropium [place] Monohydrate) Inhale by mouth. oxygen GAS Use 4 L/min(Oxygen) as directed. [...] FOR 10 DAYS NEEDED FOR CONSTIPATION 0 Lancets MISC Use as directed. USE TO TEST BLOOD SUGAR 3 TIMES A DAY FOR DIAGNOSIS CODE OF E11.9300 Each 1 doxycycline 100 MG Tablet Take 100 mg by mouth 2 times a day. RESCUE KIT: Take for Colds. [employer] N Voice System Device Use as directed. Tests three times daily/E11.9 CareSens N Glucose Test In Vitro Strip (Glucose Blood) Test as directed. Tests three times daily Advair HFA 230-21 MCG/ACT Inhalation Aerosol (fluticasone-Salmeterol) Inhale 2 Puffs by mouth 2times a day. (Patient not taking: Reported on 10/25/2021) Zoster Vac Recomb Adjuvanted 50 MCG/0.5ML Intramuscular Suspension Reconstituted (Shingrix) Inject 0.5 mL into a large muscle now and repeat dose in 60 to 180 days 1 Each 1 Omeprazole 20 MG Oral Capsule Delayed Release (PriLOSEC) TAKE 1 CAPSULE BY MOUTH TWICE A DAY 180 Capsule 3 No current facility-administered medications for this visit. Past Medical History: Diagnosis Date ACEI/ARB contraindicated Asthma Carpal tunnel syndrome DM type 2, goal: symptom mgmt (HCC) Generalized osteoarthritis HTN, goal below 140/90 Mixed dyslipidemia Past Surgical History: Procedure Laterality Date APPENDECTOMY W/OTHER PROCEDURE 1960 when removed gall bladder COLONOSCOPY, DIAGNOSTIC (RECTUM) 05/29/2016 poor prep, diverticulosis/inpt [facility] COLONOSCOPY, DIAGNOSTIC (RECTUM) 06/05/2017 diverticulosis, repeat 3 yrs/[facility] COLONOSCOPY, DIAGNOSTIC (RECTUM) 02/28/2018 adenomatous polyps, diverticulosis, repeat 3 yrs / [facility] COLONOSCOPY, DIAGNOSTIC (RECTUM) 05/08/2020 inflammatory tissue on bx, diverticulosis / [facility] COLONOSCOPY, W/BIOPSY 03/20/2012 hyperplastic polyps rpt 3 years. EGD, FLEXIBLE, DIAGNOSTIC 04/29/2014 normal/inpt [facility] EGD, FLEXIBLE, DIAGNOSTIC 05/29/2016 [facility] 05/08/2020 normal / [facility] EGD, FLEXIBLE,W/ENDOSCOPIC US 11/08/2016 inflammatory changes, stomach lesion, repeat EUS 1.5 yrs/[facility] EGD, FLEXIBLE,W/ENDOSCOPIC US 05/01/2018 stromal cell (smooth muscle) neoplasm, CBD dilation, repeat 2 yrs (needs OV prior)/[facility] EGD, FLEXIBLE,W/ENDOSCOPIC US 09/01/2020 leiomyoma / [facility] INCISIONAL HERNIA REPAIR, LAP, REDUCIBLE 09/29/2012 Repair of incarcerated supraumbilical (incisional) hernia with Atrium mesh 09/29/12 LIGATE/CUT OVIDUCT(S) REMOVAL OF TONSILS, AGE 12+ age 11 REMOVE GALLBLADDER 1960 SIGMOIDOSCOPY, DIAGNOSTIC 04/29/2014 [facility], REMOVE FOREIGN BODY [...] IV Contrast Metoprolol Tartrate Made pulse low Crawford Oil-Black Currant-Vit E Verapamil Wellbutrin [Bupropion Hcl] Makes pt sick in the stomach Review of Systems: See HPI for pertinent positives. All others negative, other than those noted in HPI. Physical Exam BP 120/70 (BP Site: Left Arm, BP Position: Sitting, BP Cuff Size: Large) | Pulse 94 | Temp 36.7 C(98 F) (Infrared ) | Resp 22 | Wt 119.3 kg (263 lb) | SpO2 96% Comment: on 3L 02 | BMI 43.77 kg/m | BSA 2.34 m General: No acute distress. A+Ox3. HEENT: Normocephalic. Atraumatic. Conjunctiva and sclera clear. NECK: No carotid bruits. No JVD. Carotid upstrokes are brisk. Heart: Irregular rhythm, regular rate. Distant heart sounds. Lungs: Diminished lung sounds bilaterally, no wheezing rhonchi or rales. Abdomen: Normal bowel sounds. Distended/taut. Extremities: No edema No clubbing or cyanosis. Pulses: radial=2/4, posterior [...] is 44mm Hg. 2D echo report summary [facility] 02/26/21: LV systolic function is mildly reduced. Ejection fraction 40-45% Mild concentric left ventricular hypertrophy. Mild global hypokinesis. Moderate aortic valve sclerosis without stenosis. Mild mitral regurgitation. Impression/Plan: 1. Heart failure with reduced EF, NYHA class 3 EF 40-45% 02/2021. Hypervolemic on exam due to dietary indiscretions over the holidays. Weight up 8 lb. Worsening shortness of breath. Does have severe COPD, oxygen dependent- possible exacerbation. SpO2 96% on 3 L. 1. Patient was instructed to increase furosemide to 80 mg twice daily x3 days. On Friday she shouldresume her normal dose of Lasix 60 mg in the morning and 40 mg the afternoon. 2. Continue spironolactone to 12.5 mg every Friday, Friday, Friday 3. Continue metoprolol succinate 25 mg in the morning and 12.5 mg in the evening 4. Continue lisinopril 2.5 mg daily 6. Repeat labs today including a CBC, BMP, BNP 7. I will call follow-up with the patient on Friday to see how she is doing. If she does not respond well and is not back to baseline will schedule a sooner appointment. 2. Nonischemic cardiomyopathy Cardiac catheterization performed 11/2020 in [place] demonstrated mild nonobstructive CAD 3. Permanent Atrial Fibrillation [id number] score of 5 (age 1, female, CHF, hypertension), no AC s/p watchman implant 11/2019. Ventricular rates ranging between 90s and 120s at home. 100% atrial fib burden with Frequent ventricularectopy with short salvos of V-tach noted on Zio monitor with an average heart rate of 77 beats per minute, asymptomatic. 1. Continue metoprolol succinate 25 mg in the morning and 12.5 mg in the evening 4. Dyslipidemia, LDL goal below 70 1. Continue Lipitor 40 mg daily The patient agrees to the above plan and will call with additional questions or concerns. ER with all emergencies advised. Check-out note: Labs today. Keep as scheduled I spent a total of 40 minutes on the date of service in preparation, delivery, and documentation ofthe care provided to Nina Harrington excluding any time spent in the performance of separately billedservices. NIECY Shepard, Department of Cardiology This chart was completed in part utilizing [employer] Speech Voice Recognition Software. Grammatical errors, random [...] Nursing Notes * Darren Mejia RN - 10/25/2021 11:38 AM EST Examination Room: room 4 Name: Nina Harrington Date of : (1940). Reason for Visit: for follow up Interim Hospitalization(s): denies Problems/Concerns: denies Chest Pain/SOB: increasing SOB [facility] Discussed: Not applicable [...] personnel. Patient voiced full comprehension of instructions. 4 documented in this encounter Plan of Treatment Upcoming Encounters Date Type Specialty Care Team Description 11/15/2021 Office Visit Internal Medicine [facility] [address] [facility] [address] 12/27/2021 Office Visit Cardiology Hammad Lopez, [address] [facility] [place] [address] Pending Results Name Type Priority Associated Diagnoses Date /Time CBC Lab Routine Chronic 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) 10/25/2021 12:04 PM EST BASIC METABOLIC PANEL Lab Routine Chronic 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) 10/25/2021 12:04 PM EST BNP (NT-PROBNP) Lab Routine Chronic 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) 10/25/2021 12:04 PM EST Scheduled Orders Name Type Priority Associated Diagnoses Orde r Schedule CBC Lab Routine Chronic 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) Expected: 10/25/2021, Expires: 10/25/2022 BASIC METABOLIC PANEL Lab Routine Chronic 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) Expected: 10/25/2021, Expires: 10/25/2022 BNP (NT-PROBNP) Lab Routine Chronic 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) Expected: 10/25/2021, Expires: 10/25/2022 Health Maintenance Due Date Last Done Comments Zoster Vaccines (2 of 3) 08/31/2012 07/06/2012 DIABETES-FOOT EXAM 12/21/2021 12/21/2020, 0 10/19/2019, 01/05/2019, Additional history exists COVID-19 Vaccine (4 - Booster for Pfizer series) 02/18/2022 08/21/2021, 12/22/2020, 2020 DIABETES-HGBA1C EVERY 6 MONTHS 02/20/2022 08/23/2021, 03/09/2021, 12/05/2020, Additional history exists CKD GFR USE SMARTSET 40236 03/03/202209/03, 08/28/2021, 07/19/2021, Additional history exists CKD PHOS USE SMARTSET 79659 03/09/2022 03/09/2021, 0 03/22/2019 DIABETES-EYE EXAM 03/26/2022 03/26/2021, , 08/10/2019, Additional history exists DIABETES-URINE ALBUMIN/CREATININE EVERY 12 MONTHS 03/28/2022 03/28/2021, 12/08/2019, 10/30/2019, Additional history exists Depression Screening, Annual for Pts 12 and Over 08/08/2022 08/08/2021 CKD HGB USE SMARTSET 64550 08/28/202208/28, 08/28/2021, 08/23/2021, Additional history exists Dexa [...] ejection fraction and diastolic dysfunction (HCC)- Primary documented in this encounter Advance Directives Documents on File Type Date Recorded 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
--- OUTSIDE RECORDS SUMMARY | 2023-06-18 02:59 | External Medical Summary | Summary of Care ---
Author Name Unknown Organization [place] [address] Care Team Providers Care Dry End Tester Name Role Phone Marcela Pinto MD Primary Care Provider + Reason for Visit * Reason Onset Date Comments Medication Refill 10/04/2021 Encounter Details Date Type Department Care Team Description 10/04/2021 Refill Cardiology, [facility] [address] [place], [place] [id number] AngeliqueDulce hernandez CRNP [address] [place] [address] Chronic 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); NICM (nonischemic cardiomyopathy) (HCC); Presence of Watchman left atrial appendage closure device Allergies Active Allergy Reactions Severity Noted Date Comments Valsartan 07/10/2010 Enalapril 05/21/2006 Escitalopram Oxalate Nausea/vomiting 10/11/2009 Nauseated Iodinated Diagnostic Agents Nausea/vomiting 05/2010 IV Contrast Iodine Hives 12/18/2009 IV Contrast Metoprolol Tartrate 11/18/2006 Made pulse low [place] Oil-Black Currant-Vit E 07/10/2010 Verapamil 03/21/2004 Bupropion [...] . 2 Bottle 3 10/01/20 16 Active Additional Information Patient taking differently: 17 [...] One tablet every day 60 Tab 11 04/16/20 19 Active [...] Take 2.5 mg by mouth daily. 0 12/14/19 21 Active CareSens N Voice System Device Use as directed. Tests three times daily/E11.9 0 Active CareSens N Glucose Test In Vitro Strip (Glucose Blood) Test as directed. Tests three times daily 0 Active Aspirin 81 MG Oral Tablet Delayed Release Take 81 mg by mouth daily. 0 02/06/20 21 Active Advair HFA 230-21 MCG/ACT Inhalation Aerosol (fluticasone-Salme terol) Inhale 2 Puffs by mouth 2 times a day. 0 04/09/20 21 Active Zafirlukast 20 MG Oral Tablet (Accolate)Indicati ons:Asthma with severity to be determined TAKE 1 TABLET BY MOUTH EVERY DAY 90 Tab 3 05/18/20 21 Active Atorvastatin Calcium 80 MG Oral Tablet (Lipitor)Indicatio ns:Hyperlipidemia with target LDL less than 100,Chronic systolic heart failure (HCC),Paroxysmal atrial fibrillation (HCC),Chronic 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),NICM (nonischemic cardiomyopathy) (HCC),Chronic atrial fibrillation (HCC),Hospital discharge follow-up,Presence of Watchman left atrial appendage closure device Take 1 Tab by mouth daily. 90 Tab 3 06/26/20 21 Active Spironolactone 25 MG Oral Tablet (Aldactone) Take 0.5 Tabs by mouth once a day on Friday, Friday, and Friday only. 30 Tab 3 07/13/20 21 Active Glimepiride 2 MG Oral Tablet (Amaryl) TAKE 1 TABLET BY MOUTH EVERY DAY WITH BREAKFAST 30 Tab 2 07/18/20 21 Active Additional Information Patient taking differently: 1 mg Oral BEFORE BREAKFAST, Reported on 08/23/2021 Promethazine HCl 25 MG Oral Tablet (Phenergan)Indicat ions:Generalized osteoarthritis TAKE 1 TABLET BY MOUTH EVERY 6 HOURS NEEDED FOR NAUSEA 60 Tab 2 07/18/20 21 Active Ipratropium-Albute rol 20-100 MCG/ACT Inhalation Aerosol Solution (Combivent Respimat)Indicatio ns:Asthma with severity to be determined,COPD, moderate (HCC) TAKE 1 PUFF BY MOUTH 4 TIMES A DAY 12 g 0 08/09/20 Active Zoster Vac Recomb Adjuvanted 50 MCG/0.5ML Intramuscular Suspension Reconstituted (Shingrix) Inject 0.5 mL into a large muscle now and repeat dose in 60 to 180 days 1 Each 1 08/09/20 Active HYDROcodone-Acetam inophen 5-325 MG Oral TabletIndications: Generalized osteoarthritis Take 1 Tablet by mouth every 6 hours as needed for Pain, Mild. 120 Tablet 0 08/29/20 21 Active Furosemide 40 MG Oral Tablet (Lasix)Indications :Chronic systolic heart failure (HCC),Paroxysmal atrial fibrillation (HCC),Chronic 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),NICM (nonischemic cardiomyopathy) (HCC),Chronic atrial fibrillation (HCC),Hospital discharge follow-up,Presence of Watchman left atrial appendage closure device 60 mg in AM, 40 mg in PM 270 Tablet 1 08/29/20 Active methIMAzole 10 MG Oral Tablet (Tapazole)Indicati ons:Hyperthyroidis m TAKE 1 TABLET BY MOUTH EVERY DAY 90 Tablet 1 09/05/20 21 Active Omeprazole 20 MG Oral Capsule [...] evening. 135 Tablet 3 10/04/20 21 Active Dicyclomine HCl 20 MG Oral Tablet (Bentyl)Indication s:Chronic constipation TAKE 1 TABLET BY MOUTH EVERY DAY 90 Tab 2 01/26/20 21 021 Discontinued Metoprolol Succinate ER 25 MG Oral Tablet Extended Release 24 Hour (toPROL XL)Indications:Chr onic 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 135 Tab 3 07/12/20 21 021 Discontinued(Re fill) documented as of this encounter [...] Hypoxemia 10/08/2011 10/30/2015 Genetic Sleep Disorder Research Other*[id number] 07/25/2011 05/15/2016 Diverticulitis of colon 07/25/2011 01/06/20 [...] mRNA, LNP-s, No Pre serve, 2-Dose Series (Sojern) 08/21/2021,12/22/2020,2020 Hepatitis B, 20+ yrs 10/01/2017,04/21/2017,03/20 Pneumococcal [...] * Telephone Encounter - NIECY Holder - 10/04/2021 12:11 PM EST Signed Prescriptions: Disp Refills Metoprolol Succinate ER 25 MG Oral Tablet *135 Ta*3 Sig: Take 1 tab in the morning and 1/2 tab in the evening.Authorizing Provider: DULCE GERBER * Telephone Encounter - NIECY Holder - 10/04/2021 12:11 PM EST Signed Prescriptions: Disp Refills Metoprolol Succinate ER 25 MG Oral Tablet *135 Ta*3 Sig: Take 1 tab in the morning and 1/2 tab in the evening. Authorizing Provider: DULCE GERBER * Telephone Encounter - Nita Velasquez CPhT - 10/04/2021 11:16 AM EST PT NEEDS UPDATED RX SENT TO PHARMACY. Medication(s) is/are listed as "Historical". Pt confirmed the current dosage, directions, and qty that they are normally prescribed, as reflected in the pending order below. This is also indicated from encounter on 08/23/2021. Confirmed patient has been seen within the last year.. Please review andapprove if appropriate. Pending Prescriptions: Disp Refills Metoprolol Succinate ER 25 MG Oral Tablet*135 Ta*3 Sig: Take 1 tab in the morning and 1/2 tab in the evening. Last Office/Telemedicine Visit: 08/23/2021 Next Office Visit: 12/27/2021 Scheduled Provider(s): Hammad Lopez, If no future appointments scheduled, and last appointment is greater than a year ago, please schedule patient for a follow-up appointment Last date the medication was ordered: Historical Patient Phone Numbers [facility] [phone] Labs: Lab Results Component Value Date/Time CREAT 1.1 (H) 09/03/2021 04:04 PM CREAT 1.08 (A) 06/12/2021 12:00 AM CREAT 1.0 05/27/2020 04:51 PM POTASSIUM 4.4 09/03/2021 04:04 PM POTASSIUM 4.1 06/12/2021 12:00 AM [...] Internal Medicine Marcela Pinto MD [address] [place] [address] 12/27/2021 Office Visit Cardiology Hammad Lopez, [address] [facility] [place] [address] Health Maintenance Due Date Last Done Comments Zoster Vaccines (2 of 3) 08/31/2012 07/06/2012 DIABETES-FOOT EXAM 12/21/2021 12/21/2020, 0 10/19/2019, 01/05/2019, Additional history exists COVID-19 Vaccine (4 - Booster for Pfizer series) 02/18/2022 08/21/2021, 12/22/2020, 2020 DIABETES-HGBA1C EVERY 6 MONTHS 02/20/2022 08/23/2021, 03/09/2021, 12/05/2020, Additional history exists CKD GFR USE SMARTSET 86703 03/03/202209/03, 08/28/2021, 07/19/2021, Additional history exists CKD PHOS USE SMARTSET 46170 03/09/2022 03/09/2021, 0 03/22/2019 DIABETES-EYE EXAM 03/26/2022 03/26/2021, , 08/10/2019, Additional history exists Depression Screening, Annual for Pts 12 and Over 08/08/2022 08/08/2021 CKD HGB USE SMARTSET 02318 08/28/202208/28, 08/28/2021, 08/23/2021, Additional history exists Dexa [...] Documents on File Type Date Recorded Patient Key Worker Expl 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 Directive Advanced Directive Advanced Directive Care Teams Dry End Tester Relationship Specialty Start Date End Date Marcela Pinto MD [address] [place] [address] PCP - General Internal Medicine 08/04/14 documented as of this encounter
--- OUTSIDE RECORDS SUMMARY | 2023-06-18 02:59 | External Medical Summary | Summary of Care ---
Author Name Unknown Organization [place] [address] Care Team Providers Care Campus Security Director Name Role Phone Marcela Pinto MD Primary Care Provider + Encounter Details Date Type Department Care Team Description 10/25/2021 Documentation Laboratory, [facility] [address] [facility] [place] [id number] [facility] [address] [facility] [address] Chronic 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) Allergies Active Allergy Reactions Severity Noted Date Comments Valsartan 07/10/2010 Enalapril 05/21/2006 Escitalopram Oxalate Nausea/vomiting 10/11/2009 Nauseated Iodinated Diagnostic Agents Nausea/vomiting 05/2010 IV Contrast Iodine Hives 12/18/2009 IV Contrast Metoprolol Tartrate 11/18/2006 Made pulse low [place] Oil-Black Currant-Vit E 07/10/2010 Verapamil 03/21/2004 [...] Respimat 1.25 MCG/ACT Inhalation Aerosol Solution (Tiotropium [place] Monohydrate) Inhale by mouth. 0 Active documented [...] Hypoxemia 10/08/2011 10/30/2015 Genetic Sleep Disorder Research Other*[id number] 07/25/2011 05/15/2016 Diverticulitis of colon 07/25/2011 01/06/20 [...] mRNA, LNP-s, No Pre serve, 2-Dose Series ([employer]) 08/21/2021,12/22/2020,2020 Hepatitis B, 20+ yrs 10/01/2017,04/21/2017,03/20 Pneumococcal [...] encounter Nursing Notes * Entry Data - 10/26/2021 5:32 AM EST Automated conversion to a Documentation Encounter documented in this encounter Miscellaneous Notes * Result QuickNote - NIECY Holder - 10/26/2021 7:56 AM EST Lab work stable. BMP indicates that he she is holding on to fluid. Please continue with plan as outlined in office yesterday. documented in this encounter Plan of Treatment Upcoming Encounters Date Type Specialty Care Team Description 11/15/2021 Office Visit Internal Medicine Marcela Pinto MD 200 [facility] [place] [address] 12/27/2021 Office Visit Cardiology Hammad Lopez, 132 [facility] [place] [address] Health Maintenance Due Date Last Done Comments Zoster Vaccines (2 of 3) 08/31/2012 07/06/2012 DIABETES-URINE ALBUMIN/CREATININE EVERY 12 MONTHS 07/09/2020 07/09/2019, 07/27/2018, 05/19/2017, Additional history exists DIABETES-FOOT EXAM 12/21/2021 12/21/2020, 0 10/19/2019, 01/05/2019, Additional history exists COVID-19 Vaccine (4 - Booster for Pfizer series) 02/18/2022 08/21/2021, 12/22/2020, 2020 DIABETES-HGBA1C EVERY 6 MONTHS 02/20/2022 08/23/2021, 03/09/2021, 12/05/2020, Additional history exists CKD PHOS USE SMARTSET 08629 03/09/2022 03/09/2021, 0 03/22/2019 DIABETES-EYE EXAM 03/26/2022 03/26/2021, , 08/10/2019, Additional history exists CKD GFR USE SMARTSET 27282 04/24/202210/25, 09/03/2021, 08/28/2021, Additional history exists Depression Screening, Annual for Pts 12 and Over 08/08/2022 08/08/2021 CKD HGB USE SMARTSET 76564 10/25/202210/25, 08/28/2021, 08/28/2021, Additional history exists Dexa [...] Procedure Name Priority Date/Time Associated Diagnosis Comments BNP (NT-PROBNP) Routine 10/25/2021 12:04 PM EST Chronic 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) BASIC METABOLIC PANEL Routine 10/25/2021 12:04 PM EST Chronic 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) CBC Routine 10/25/2021 12:04 PM EST Chronic 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) documented in this encounter Results * BNP (NT-PROBNP) (10/25/2021 12:04 PM EST) Pathologist [facility] BNP (NT-PRO-BNP) 4,952(H) <300 pg/mL [facility] Spec[place] Blood - Venous blood specime n (specimen) Narrative [facility] - 10/25/2021 7:40 PM EST Exclude Heart Failure: <300 pg/mL Diagnose Heart Failure: Age <50 yr: >450 pg/mL 50-75 yr: >900 pg/mL >75 yr: >1800 pg/mL GFR is 30-59 mL/min: >1200 pg/mL or Age-adjusted values GFR <30 mL/min: do not use, not reliable Prognostic threshold: 1000 pg/mL [facility] [address] [place] [address] * BASIC METABOLIC PANEL (10/25/2021 12:04 PM EST) Pathologist [facility] BUN 14 6 - 20 mg/dL [facility] [place] [facility] Creatinine 0.9 0.5 - 1.0 mg/dL [facility] [place] [facility] Estimated Glomerular Filtration Rate 62Comment:eGFR is calculated based on the CKD-EPI 2020 equation >=60 mL/min [facility] [place] [facility] Sodium 137 135 - 146 mmol/L [facility] [place] [facility] Potassium 5.0 3.5 - 5.1 mmol/L [facility] [place] [facility] Chloride 97(L) 98 - 107 mmol/L [facility] [place] [facility] CO2 34(H) 22 - 32 mmol/L [facility] [place] [facility] Anion Gap 6(L) 7 - 15 mmol/L [facility] [place] [facility] Glucose 143(H) 70 - 120 mg/dL [facility] [place] [facility] Calcium 9.3 8.4 - 10.2 mg/dL [facility] [place] [facility]10 Specimen Blood - Venous blood specime n (specimen) Performing Organization Address [facility] de Phone Number [facility] [phone] [facility] [place] [address] * CBC (10/25/2021 12:04 PM EST) WBC 8.39 4.00 - 10.80 K/uL [facility] [place] [facility]10 RBC 3.36(L) 3.85 - 5.15 M/uL [facility] [place] [facility] HGB 9.2(L) 12.0 - 15.3 g/dL [facility] [place] [facility]10 HCT 31.2(L) 36.0 - 45.2 % [facility] [place] [facility] MCV 92.9 81.5 - 97.5 fL [facility]ORY [place] [facility]10 MCH 27.4 27.0 - 34.0 pg [facility]ORY [place] [facility] [place] [facility]10 MCHC 29.5(L) 32.0 - 36.0 g/dL [facility] [place] [facility] RDW 15.1 11.5 - 15.5 % [facility] [place] [facility]10 Plt 319 140 - 400 K/uL [facility] [place] [facility]10 MPV 9.5 6.6 - 11.1 fL [facility] [place] [facility]10 Specimen Blood - Venous blood specime n (specimen) Performing Organization Address [facility] de Phone Number LAB[facility]ATORY [facility] [place] [phone] [place] [address] documented in this encounter Visit Diagnoses Diagnosis Chronic 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) documented in this encounter Advance Directives Documents on File Type Date Recorded Patient Cannoneer Expl anation Advanced 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 Directive Advanced Directive Advanced Directive Care Teams Campus Security Director Relationship Specialty Start Date End Date Marcela Pinto MD [address] [place] [address] PCP - General Internal Medicine 08/04/14 documented as of this encounter
--- OUTSIDE RECORDS SUMMARY | 2023-06-18 03:00 | External Medical Summary ---
Author Name Unknown Address Unknown Organization K01:LABORATORY [facility] - [address] [place] [address] Laboratory Report Ordering Provider Test Date Status ALOK SAENZ 09/21/2021 14:09:07 Final Observation Date Value Abnormality Reference (Units) Status Bacteria identified in Unspecified specimen by Culture 09/21/2021 14:09:07 No significant growth Final Performing Location LAB[facility]ATORY [facility] - [address] [facility] [address]
--- OUTSIDE RECORDS SUMMARY | 2023-06-18 03:00 | External Medical Summary | Summary of Care ---
Author Name Unknown Organization [place] [address] Care Team Providers Care Molder Trimmer Name Role Phone Marcela Pinto MD Primary Care Provider + Reason for Visit * Reason Comments Acute Encounter Details Date Type Department Care Team Description 09/21/2021 Office Visit Family Medicine [address] [place] [address] Valentine Duke PA-C [address] [place] [address] [place] [address] Complicated UTI (urinary tract infection)*; UTI symptoms; History of ESBL E. coli infection; Type 2 diabetes mellitus with hemoglobin A1c goal of less than 7.5% ([facility]); Incontinence of feces, unspecified fecal incontinence type Allergies Active Allergy Reactions Severity Noted Date Comments Valsartan 07/10/2010 Enalapril 05/21/2006 Escitalopram Oxalate Nausea/vomiting 10/11/2009 Nauseated Iodinated Diagnostic Agents Nausea/vomiting 05/2010 IV Contrast Iodine Hives 12/18/2009 IV Contrast Metoprolol Tartrate 11/18/2006 Made pulse low [place] Oil-Black Currant-Vit E 07/10/2010 Verapamil 03/21/2004 Bupropion Hcl 10/30/2009 Makes pt sick in the stomach documented as of this encounter (statuses as of 09/21/2021) Medications Medication Sig Dispensed Refills Start Date [...] as of this encounter (statuses as of 09/21/2021) Active Problems Problem Noted Date History of [...] as of this encounter (statuses as of 09/21/2021) Resolved Problems Problem Noted Date Resolved Date [...] Hypoxemia 10/08/2011 10/30/2015 Genetic Sleep Disorder Research Other*[id number] 07/25/2011 05/15/2016 Diverticulitis of colon 07/25/2011 01/06/20 [...] as of this encounter (statuses as of 09/21/2021) Immunizations Name Administration Dates Next Due COVID-19 mRNA, LNP-s, No Pre serve, 2-Dose Series ([employer]) 08/21/2021,12/22/2020,2020 Hepatitis B, 20+ yrs 10/01/2017,04/21/2017,03/20 Pneumococcal [...] Sign Reading Time Taken Comments Blood Pressure 122/74 09/21/2021 1:37 PM EST Pulse 87 09/21/2021 1:37 PM EST Temperature 37.1 C (98.7 F) 09/21/2021 1:37 PM ES T Respiratory Rate 16 09/21/2021 1:37 PM EST Oxygen Saturation 94% 09/21/2021 1:37 PM EST Inhaled Oxygen Concentration - - Weight 116.2 kg (256 lb 3.2 oz) 09/21/2021 1:37 PM EST Height - - Body Mass Index 42.63 08/20/2021 2:10 PM EST documented in this encounter Progress Notes * Valentine Duke PA-C - 09/21/2021 1:48 PM EST Subjective Nina Harrington is a 80 year old female that presents for Acute HPI Nursing Notes: Tsering Lassiter, [place] 09/21/21 1350 Signed Lower stomach pain with urination. Symptoms started 1 week ago. HPI: Nina Harrington is a 80 year old female presenting to the office today for complicated UTI. She has mostly had lower abdominal pain with urinary freuqnecy. She has recent history of severely resistant ESBL E. Coli. Fosfomycin was the only PO abx that was suggested by ID. She has since had stool leakage chronically because of history of diverticulitis. She has never tried metamucil daily. She still takes a stool softener. Objective BP 122/74 | Pulse 87 | Temp 37.1 C (98.7 F) (Tympanic) | Resp 16 | Wt 116.2 kg (256 lb 3.2 oz) | SpO2 94% | BMI 42.63 kg/m | BSA 2.31 m Body mass index is 42.63 kg/m. BP Readings from Last 3 Encounters: 09/21/21 122/74 08/23/21 102/62 08/20/21 122/74 Wt Readings from Last 3 Encounters: 09/21/21 116.2 kg (256 lb 3.2 oz) 08/23/21 116.5 kg (256 lb 12 oz) 08/20/21 116.8 kg (257 lb 6.4 oz) Physical Exam General: Well-Developed. Well nourished. Well appearing. No acute distress. HENT: Normocephalic. Atraumatic. Hearing normal. Cardiovascular: RRR. Normal S1/S2 noted. No murmur, rub or gallop appreciated. Pulmonary: No respiratory distress. No accessory muscle use. No adventitious sounds appreciated. Normal breath sounds Neurologic: Alert. Oriented x 3. Appears stated age. CN 2-12 grossly intact. Skin: Warm and dry. No apparent rashes or ecchymoses. No jaundice or pallor noted. Psych: Mood and affect normal. Assessment and plan Complicated UTI (urinary tract infection) Recommended waiting for cx to start abx because of recent history of ESBL E. Coli. She agreed. - Culture, Urine, Quantitative UTI symptoms - Urinalysis, Point of Care (Enter/Edit) - Culture, Urine, Quantitative History of ESBL E. coli infection Type 2 diabetes mellitus with hemoglobin A1c goal of less than 7.5% (HCC) Incontinence of feces, unspecified fecal incontinence type Start Metamucil daily to help bulk stools. She agreed. Follow up PRN The above was discussed and understanding was expressed. Valentine Duke PA-C documented in this encounter Nursing Notes * PARIS Wolfe - 09/21/2021 1:36 PM EST Lower stomach pain with urination. Symptoms started 1 week ago. documented in this encounter Plan of Treatment Upcoming Encounters Date Type Specialty Care Team Description 11/15/2021 Office Visit Internal Medicine Marcela Pinto MD [address] [place] [address] 12/27/2021 Office Visit Cardiology Hammad Lopez, DO 132 [facility] [place] [address] Scheduled Orders Name Type Priority Associated Diagnoses Orde r Schedule CULTURE, URINE, QUANTITATIVE Lab Routine UTI symptoms Complicated UTI (urinary tract infection) Ordered: 09/21/2021 Health Maintenance Due Date Last Done Comments Zoster Vaccines (2 of 3) 08/31/2012 07/06/2012 DIABETES-FOOT EXAM 12/21/2021 12/21/2020, 0 10/19/2019, 01/05/2019, Additional history exists COVID-19 Vaccine (4 - Booster for Pfizer series) 02/18/2022 08/21/2021, 12/22/2020, 2020 DIABETES-HGBA1C EVERY 6 MONTHS 02/20/2022 08/23/2021, 03/09/2021, 12/05/2020, Additional history exists CKD GFR USE SMARTSET 54713 03/03/202209/03, 08/28/2021, 07/19/2021, Additional history exists CKD PHOS USE SMARTSET 73901 03/09/2022 03/09/2021, 0 03/22/2019 DIABETES-EYE EXAM 03/26/2022 03/26/2021, , 08/10/2019, Additional history exists CKD HGB USE SMARTSET 36332 08/28/202208/28, 08/28/2021, 08/23/2021, Additional history exists Dexa Scan 08/08/2025 08/08/2020, 07/, 06/19/2010, Additional [...] Procedure Name Priority Date/Time Associated Diagnosis Comments URINALYSIS, POINT OF CARE (ENTER/EDIT) Routine 09/21/2021 UTI symptoms documented in this encounter Results * URINALYSIS, POINT OF CARE (ENTER/EDIT) (09/21/2021) Color, Urine Yellow Yellow or Light Yellow Clarity, Urine Clear Clear Glucose, Urine Negative Negative mg/dL Bilirubin, Urine Negative Negative Ketone, Urine Negative Negative mg/dL Specific Malone, Urine 1.005 1.003 - 1.030 Blood, Urine Negative Negative pH, Urine 7.0 5.0 - 7.5 units Protein, Urine Negative Negative mg/dL Urobilinogen, Urine 0.2 0.2 - 1.0 mg/dL Nitrite, Urine Negative Negative Esterase, Urine Moderate Negative Specimen Urine documented in this encounter Visit Diagnoses Diagnosis Complicated UTI (urinary tract infection)- Primary Urinary tract infection, site not specified UTI symptoms Other symptoms involving urinary system History of ESBL E. coli infection Personal history of other infectious and parasitic disease Type 2 diabetes mellitus with hemoglobin A1c goal of less than 7.5% (HCC) Incontinence of feces, unspecified fecal incontinence type documented in this encounter Advance Directives Documents on File Type Date Recorded Patient Band Saw Filer Expl anation Advanced 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 Directive Advanced Directive Advanced Directive Care Teams Molder Trimmer Relationship Specialty Start Date End Date Marcela Pinto MD [address] [place] [address] PCP - General Internal Medicine 08/04/14 documented as of this encounter"
--- OUTSIDE RECORDS SUMMARY | 2023-06-18 03:00 | External Medical Summary | Summary of Care ---
Author Name Unknown Organization [place] [address] Care Team Providers Care Furnace Hand Name Role Phone Marcela Pinto MD Primary Care Provider + Reason for Visit * Reason Onset Date Comments Test Results 09/05/2021 Encounter Details Date Type Department Care Team Description 09/05/2021 Telephone Cardiology, [facility] [address] [place] [address] Dulce Merino CRNP [address] [place] [address] Test Results Allergies Active Allergy Reactions Severity Noted Date Comments Valsartan 07/10/2010 Enalapril 05/21/2006 Escitalopram Oxalate Nausea/vomiting 10/11/2009 Nauseated Iodinated Diagnostic Agents Nausea/vomiting 05/2010 IV Contrast Iodine Hives 12/18/2009 IV Contrast Metoprolol Tartrate 11/18/2006 Made pulse low [place] Oil-Black Currant-Vit E 07/10/2010 Verapamil 03/21/2004 Bupropion Hcl 10/30/2009 Makes pt sick in the stomach documented as of this encounter (statuses as of 09/05/2021) Medications Medication Sig Dispensed Refills Start Date [...] EVERY DAY 90 Tab 2 01/25/2021 Active Omeprazole 20 MG Oral Capsule Delayed Release (PriLOSEC)Indication s:Ischemic colitis (HCC) TAKE 1 CAPSULE BY MOUTH TWICE A DAY 180 Cap 1 04/03/2021 Active CareSens N Voice System Device Use [...] EVERY DAY 90 Tablet 1 09/05/2021 Active documented as of this encounter (statuses as of 09/05/2021) Active Problems Problem Noted Date Subclinical hyperthyroidism 08/20/2021 Chronic kidney disease, stage [...] as of this encounter (statuses as of 09/05/2021) Resolved Problems Problem Noted Date Resolved Date [...] Hypoxemia 10/08/2011 10/30/2015 Genetic Sleep Disorder Research Other*[id number] 07/25/2011 05/15/2016 Diverticulitis of colon 07/25/2011 01/06/20 [...] as of this encounter (statuses as of 09/05/2021) Immunizations Name Administration Dates Next Due COVID-19 mRNA, LNP-s, No Pre serve, 2-Dose Series ([employer]) 08/21/2021,12/22/2020,2020 Hepatitis B, 20+ yrs 10/01/2017,04/21/2017,03/20 Pneumococcal [...] encounter Miscellaneous Notes * Telephone Encounter - Dionte Billy LPN - 09/05/2021 4:33 PM EST Called patient and informed of Dulce's message. Patient verbalized understanding. ----- Message from NIECY Holder sent at 09/05/2021 4:22 PM EST ----- Echo reviewed. LVEF stable at 40 to 44%. 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 Known aortic valve sclerosis without stenosis. Moderate MR (slight increase) and mild TR. Pulmonary artery systolic pressure 44 mmHg (moderate pulm HTN)- no changes at this time. Overall testing is stable. Will continue to monitor documented in this encounter Plan of Treatment Upcoming Encounters Date Type Specialty Care Team Description 11/15/2021 Office Visit Internal Medicine Marcela Pinto MD [address] [place] [address] 12/27/2021 Office Visit Cardiology Hammad Lopez DO 132 [facility] [place] [address] Health Maintenance Due Date Last Done Comments Zoster Vaccines (2 of 3) 08/31/2012 07/06/2012 DIABETES-FOOT EXAM 12/21/2021 12/21/2020, 0 10/19/2019, 01/05/2019, Additional history exists COVID-19 Vaccine (4 - Booster for Pfizer series) 02/18/2022 08/21/2021, 12/22/2020, 2020 DIABETES-HGBA1C EVERY 6 MONTHS 02/20/2022 08/23/2021, 03/09/2021, 12/05/2020, Additional history exists CKD GFR USE SMARTSET 42662 03/03/202209/03, 08/28/2021, 07/19/2021, Additional history exists CKD PHOS USE SMARTSET 50636 03/09/2022 03/09/2021, 0 03/22/2019 DIABETES-EYE EXAM 03/26/2022 03/26/2021, , 08/10/2019, Additional history exists CKD HGB USE SMARTSET 07547 08/28/202208/28, 08/28/2021, 08/23/2021, Additional history exists Dexa [...] Documents on File Type Date Recorded 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
--- OUTSIDE RECORDS SUMMARY | 2023-06-18 03:00 | External Medical Summary | Summary of Care ---
Author Name Unknown Organization [place] [address] Care Team Providers Care Operations Forester Name Role Phone Marcela Pinto MD Primary Care Provider + Encounter Details Date Type Department Care Team Description 09/10/2021 Scan Encounter General Internal Medicine [facility] [address] [place] [address] Marcela Pinto MD [address] [place] [address] <No scans attached> Allergies Active Allergy Reactions Severity Noted Date Comments Valsartan 07/10/2010 Enalapril 05/21/2006 Escitalopram Oxalate Nausea/vomiting 10/11/2009 Nauseated Iodinated Diagnostic Agents Nausea/vomiting 05/2010 IV Contrast Iodine Hives 12/18/2009 IV Contrast Metoprolol Tartrate 11/18/2006 Made pulse low [place] Oil-Black Currant-Vit E 07/10/2010 Verapamil 03/21/2004 Bupropion Hcl 10/30/2009 Makes pt sick in the stomach documented as of this encounter (statuses as of 09/11/2021) Medications Medication Sig Dispensed Refills Start Date [...] as of this encounter (statuses as of 09/11/2021) Active Problems Problem Noted Date Subclinical hyperthyroidism [...] as of this encounter (statuses as of 09/11/2021) Resolved Problems Problem Noted Date Resolved Date [...] Hypoxemia 10/08/2011 10/30/2015 Genetic Sleep Disorder Research Other*[id number] 07/25/2011 05/15/2016 Diverticulitis of colon 07/25/2011 01/06/20 [...] as of this encounter (statuses as of 09/11/2021) Immunizations Name Administration Dates Next Due COVID-19 mRNA, LNP-s, No Pre serve, 2-Dose Series ([employer]) 08/21/2021,12/22/2020,2020 Hepatitis B, 20+ yrs 10/01/2017,04/21/2017,03/20 Pneumococcal [...] Internal Medicine Marcela Pinto MD [address] [place] [address] 12/27/2021 Office Visit Cardiology Hammad Lopez DO [address] [place] [address] Health Maintenance Due Date Last Done Comments Zoster Vaccines (2 of 3) 08/31/2012 07/06/2012 DIABETES-FOOT EXAM 12/21/2021 12/21/2020, 0 10/19/2019, 01/05/2019, Additional history exists COVID-19 Vaccine (4 - Booster for Pfizer series) 02/18/2022 08/21/2021, 12/22/2020, 2020 DIABETES-HGBA1C EVERY 6 MONTHS 02/20/2022 08/23/2021, 03/09/2021, 12/05/2020, Additional history exists CKD GFR USE SMARTSET 53944 03/03/202209/03, 08/28/2021, 07/19/2021, Additional history exists CKD PHOS USE SMARTSET 23148 03/09/2022 03/09/2021, 0 03/22/2019 DIABETES-EYE EXAM 03/26/2022 03/26/2021, , 08/10/2019, Additional history exists CKD HGB USE SMARTSET 06770 08/28/202208/28, 08/28/2021, 08/23/2021, Additional history exists Dexa [...] Documents on File Type Date Recorded 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
--- OUTSIDE RECORDS SUMMARY | 2023-06-18 03:00 | External Medical Summary | Summary of Care ---
Author Name Unknown Organization [place] [address] Care Team Providers Care Blow Molder Name Role Phone Marcela Pinto MD Primary Care Provider + Reason for Visit * Reason Onset Date Comments FYI 09/04/2021 Encounter Details Date Type Department Care Team Description 09/04/2021 Telephone General Internal Medicine [facility] [address] [place] [address] Marcela Pinto MD [address] [place] [address] FYI Allergies Active Allergy Reactions Severity Noted Date Comments Valsartan 07/10/2010 Enalapril 05/21/2006 Escitalopram Oxalate Nausea/vomiting 10/11/2009 Nauseated Iodinated Diagnostic Agents Nausea/vomiting 05/2010 IV Contrast Iodine Hives 12/18/2009 IV Contrast Metoprolol Tartrate 11/18/2006 Made pulse low [place] Oil-Black Currant-Vit E 07/10/2010 Verapamil 03/21/2004 [...] EVERY DAY 90 Tab 2 1 Active Omeprazole 20 MG Oral Capsule Delayed Release (PriLOSEC)Indicati ons:Ischemic colitis (HCC) TAKE 1 CAPSULE BY MOUTH TWICE A DAY 180 Cap 1 1 Active CareSens N Voice System Device Use as directed. Tests three times daily/E11.9 0 Active CareSens N Glucose Test In Vitro Strip (Glucose Blood) Test as directed. Tests three times daily 0 Active Klor-Con M20 20 MEQ Oral Tablet Extended Release (Potassium Chloride Annalisa ER)Indications:HTN , goal below 140/90 TAKE 1 TABLET BY MOUTH EVERY DAY 90 Tab 1 1 Active Aspirin 81 MG Oral Tablet Delayed [...] 10 MG Oral Tablet (Tapazole)Indicati ons:Hyperthyroidis m Take 1 Tab by mouth daily. 30 Tab 3 1 09/05/20 21 Discontinued documented as of this encounter [...] Hypoxemia 10/08/2011 10/30/2015 Genetic Sleep Disorder Research Other*[id number] 07/25/2011 05/15/2016 Diverticulitis of colon 07/25/2011 01/06/20 [...] mRNA, LNP-s, No Pre serve, 2-Dose Series ([employer]ago) 08/21/2021,12/22/2020,2020 Hepatitis B, 20+ yrs 10/01/2017,04/21/2017,03/20 Pneumococcal [...] Telephone Encounter - Marcela Pinto MD - 09/05/2021 8:48 AM EST Noted. Thanks. * Telephone Encounter - Jelly Lassiter LPN - 09/04/2021 1:22 PM EST Contacted patient and gave her test results. Patient stated that she is still somewhat SOB on exertion, however she if fine is just sitting. Patient is not taking prednisone at this time She is taking the iron w/ Vit C as prescribed. Will mail the FOBT kit to her. * Telephone Encounter - Jelly Lassiter LPN - 09/04/2021 1:18 PM EST ----- Message from Marcela Pinto MD sent at 09/04/2021 10:31 AM EST ----- Slightly high wbc and low but stable Hb. Please find out how patient is doing currently. Any GI symptoms? Any upper respiratory symptoms? Isshe taking any prednisone? Also I was notified by the lab that they could not drawn her stool for occult blood as specimen submitted was not proper. Please inform the patient to resubmit the stool specimen for occult blood. Ifpatient prefers we can mail her the specimen container or she can pick it up from the lab dependingon her preference. Thanks Also make sure she is taking oral iron pill 1 every other day with vitamin-C. ER for any emergencies in the meantime. Thanks documented in this encounter Plan of Treatment Upcoming Encounters Date Type Specialty Care Team Description 11/15/2021 Office Visit Internal Medicine Mracela Pinto MD 200 [facility] [place] [address] 12/27/2021 Office Visit Cardiology Hammad Lopez DO [address] [facility] [place] [address] Health Maintenance Due Date Last Done Comments Zoster Vaccines (2 of 3) 08/31/2012 07/06/2012 DIABETES-FOOT EXAM 12/21/2021 12/21/2020, 0 10/19/2019, 01/05/2019, Additional history exists COVID-19 Vaccine (4 - Booster for Pfizer series) 02/18/2022 08/21/2021, 12/22/2020, 2020 DIABETES-HGBA1C EVERY 6 MONTHS 02/20/2022 08/23/2021, 03/09/2021, 12/05/2020, Additional history exists CKD GFR USE SMARTSET 57281 03/03/202209/03, 08/28/2021, 07/19/2021, Additional history exists CKD PHOS USE SMARTSET 92667 03/09/2022 03/09/2021, 0 03/22/2019 DIABETES-EYE EXAM 03/26/2022 03/26/2021, , 08/10/2019, Additional history exists CKD HGB USE SMARTSET 41551 08/28/202208/28, 08/28/2021, 08/23/2021, Additional history exists Dexa [...] Documents on File Type Date Recorded 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
--- OUTSIDE RECORDS SUMMARY | 2023-06-18 03:00 | External Medical Summary | Summary of Care ---
Author Name Unknown Organization [place] [address] Care Team Providers Care Regulatory Affairs Consultant Name Role Phone Alex Pinto MD Primary Care Provider + Reason for Visit * Reason Comments eRx-Medication Refill Encounter Details Date Type Department Care Team Description 09/20/2021 Refill General Internal Medicine [facility] 200 [facility] [place] [address] Alex Pinto MD [address] [place] [address] Ischemic colitis (HCC) Allergies Active Allergy Reactions Severity Noted Date Comments Valsartan 07/10/2010 Enalapril 05/21/2006 Escitalopram Oxalate Nausea/vomiting 10/11/2009 Nauseated Iodinated Diagnostic Agents Nausea/vomiting 05/2010 IV Contrast Iodine Hives 12/18/2009 IV Contrast Metoprolol Tartrate 11/18/2006 Made pulse low [place] Oil-Black Currant-Vit E 07/10/2010 Verapamil 03/21/2004 Bupropion Hcl 10/30/2009 Makes pt sick in the stomach documented as of this encounter (statuses as of 09/20/2021) Medications Medication Sig Dispensed Refills Start Date [...] Take 2.5 mg by mouth daily. 0 03/03/202 1 Active Dicyclomine HCl 20 MG Oral [...] A DAY 180 Capsule 3 1 Active Omeprazole 20 MG Oral Capsule Delayed Release (PriLOSEC)Indicati ons:Ischemic colitis (HCC) TAKE 1 CAPSULE BY MOUTH TWICE A DAY 180 Cap 1 1 09/20/20 21 Discontinued documented as of this encounter (statuses as of 09/20/2021) Active Problems Problem Noted Date Subclinical hyperthyroidism [...] as of this encounter (statuses as of 09/20/2021) Resolved Problems Problem Noted Date Resolved Date [...] Hypoxemia 10/08/2011 10/30/2015 Genetic Sleep Disorder Research Other*[id number] 07/25/2011 05/15/2016 Diverticulitis of colon 07/25/2011 01/06/20 [...] as of this encounter (statuses as of 09/20/2021) Immunizations Name Administration Dates Next Due COVID-19 mRNA, LNP-s, No Pre serve, 2-Dose Series (Tablus) 08/21/2021,12/22/2020,2020 Hepatitis B, 20+ yrs 10/01/2017,04/21/2017,03/20 Pneumococcal [...] encounter Miscellaneous Notes * Telephone Encounter - Ce Jacobo RPh - 09/20/2021 3:31 PM EST Signed Prescriptions: Disp Refills Omeprazole 20 MG Oral Capsule Delayed Rele*180 Ca*3 Sig: TAKE 1 CAPSULE BY MOUTH TWICE A DAYAuthorizing Provider: ALEX PINTO User: CE JACOBO documented in this encounter Plan of Treatment Upcoming Encounters Date Type Specialty Care Team Description 09/21/2021 Office Visit Family Medicine Valentine Duke PA-C [address] [place] [address] [place] [address] 11/15/2021 Office Visit Internal Medicine Alex Pinto MD 200 [facility] [place] [address] 12/27/2021 Office Visit Cardiology Hammad Lopez, [address] [place] [address] Health Maintenance Due Date Last Done Comments Zoster Vaccines (2 of 3) 08/31/2012 07/06/2012 DIABETES-FOOT EXAM 12/21/2021 12/21/2020, 0 10/19/2019, 01/05/2019, Additional history exists COVID-19 Vaccine (4 - Booster for Pfizer series) 02/18/2022 08/21/2021, 12/22/2020, 2020 DIABETES-HGBA1C EVERY 6 MONTHS 02/20/2022 08/23/2021, 03/09/2021, 12/05/2020, Additional history exists CKD GFR USE SMARTSET 93341 03/03/202209/03, 08/28/2021, 07/19/2021, Additional history exists CKD PHOS USE SMARTSET 49609 03/09/2022 03/09/2021, 0 03/22/2019 DIABETES-EYE EXAM 03/26/2022 03/26/2021, , 08/10/2019, Additional history exists CKD HGB USE SMARTSET 65994 08/28/202208/28, 08/28/2021, 08/23/2021, Additional history exists Dexa [...] insufficiency of intestine documented in this encounter Advance Directives Documents on File Type Date Recorded Patient Manager Qa Expl anation Advanced 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 Directive Advanced Directive Advanced Directive Care Teams Regulatory Affairs Consultant Relationship Specialty Start Date End Date Alex Pinto MD [address] [facility] [place] [address] PCP - General Internal Medicine 08/04/14 documented as of this encounter
--- OUTSIDE RECORDS SUMMARY | 2023-06-18 03:00 | External Medical Summary | Summary of Care ---
Author Name Unknown Organization [place] [address] Care Team Providers Care Chair Mender Name Role Phone Marcela Pinto MD Primary Care Provider + Reason for Visit * Reason Comments Acute Encounter Details Date Type Department Care Team Description 09/21/2021 Office Visit Family Medicine [address] [place] [address] Valentine Duke PA-C [address] [place] [address] [place] [address] Complicated UTI (urinary tract infection)*; UTI symptoms; History of ESBL E. coli infection; Type 2 diabetes mellitus with hemoglobin A1c goal of less than 7.5% ([facility]); Incontinence of feces, unspecified fecal incontinence type Allergies Active Allergy Reactions Severity Noted Date Comments Valsartan 07/10/2010 Enalapril 05/21/2006 Escitalopram Oxalate Nausea/vomiting 10/11/2009 Nauseated Iodinated Diagnostic Agents Nausea/vomiting 05/2010 IV Contrast Iodine Hives 12/18/2009 IV Contrast Metoprolol Tartrate 11/18/2006 Made pulse low [place] Oil-Black Currant-Vit E 07/10/2010 Verapamil 03/21/2004 Bupropion [...] Hypoxemia 10/08/2011 10/30/2015 Genetic Sleep Disorder Research Other*[id number] 07/25/2011 05/15/2016 Diverticulitis of colon 07/25/2011 01/06/20 [...] mRNA, LNP-s, No Pre serve, 2-Dose Series ([employer]) 08/21/2021,12/22/2020,2020 Hepatitis B, 20+ yrs 10/01/2017,04/21/2017,03/20 [...] Internal Medicine Marcela Pinto MD [address] [place] [address] 12/27/2021 Office Visit Cardiology Hammad Lopez, DO 132 [facility] [place] [address] Scheduled Orders Name Type Priority Associated Diagnoses [...] Additional history exists CKD GFR USE SMARTSET 44660 03/03/202209/03, 08/28/2021, 07/19/2021, Additional history exists CKD PHOS USE SMARTSET 10700 03/09/2022 03/09/2021, 0 03/22/2019 DIABETES-EYE EXAM 03/26/2022 03/26/2021, , 08/10/2019, Additional history exists CKD HGB USE SMARTSET 47483 08/28/202208/28, 08/28/2021, 08/23/2021, Additional history exists Dexa [...] Negative Ketone, Urine Negative Negative mg/dL Specific [place], Urine 1.005 1.003 - 1.030 Blood, Urine [...] Documents on File Type Date Recorded 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
--- OUTSIDE RECORDS SUMMARY | 2023-06-18 03:00 | External Medical Summary | Summary of Care ---
Author Name Unknown Organization [place] [address] Care Team Providers Care Oil Burner Servicer And Installer Name Role Phone Marcela Pinto MD Primary Care Provider + Reason for Visit * Reason Comments Acute Encounter Details Date Type Department Care Team Description 09/21/2021 Office Visit Family Medicine [address] [place] [address] Valentine Duke PA-C [address] [place] [address] [place] [address] Complicated UTI (urinary tract infection)*; UTI symptoms; History of ESBL E. coli infection; Type 2 diabetes mellitus with hemoglobin A1c goal of less than 7.5% ([facility]); Incontinence of feces, unspecified fecal incontinence type Allergies Active Allergy Reactions Severity Noted Date Comments Valsartan 07/10/2010 Enalapril 05/21/2006 Escitalopram Oxalate Nausea/vomiting 10/11/2009 Nauseated Iodinated Diagnostic Agents Nausea/vomiting 05/2010 IV Contrast Iodine Hives 12/18/2009 IV Contrast Metoprolol Tartrate 11/18/2006 Made pulse low [place] Oil-Black Currant-Vit E 07/10/2010 Verapamil 03/21/2004 Bupropion [...] Hypoxemia 10/08/2011 10/30/2015 Genetic Sleep Disorder Research Other*[id number] 07/25/2011 05/15/2016 Diverticulitis of colon 07/25/2011 01/06/20 [...] mRNA, LNP-s, No Pre serve, 2-Dose Series ([employer]) 08/21/2021,12/22/2020,2020 Hepatitis B, 20+ yrs 10/01/2017,04/21/2017,03/20 Pneumococcal [...] Internal Medicine Marcela Pinto MD [address] [place] [address] 12/27/2021 Office Visit Cardiology Hammad Lopez, DO [address] [facility] [place] [address] Scheduled Orders Name Type Priority Associated Diagnoses [...] Additional history exists CKD GFR USE SMARTSET 31982 03/03/202209/03, 08/28/2021, 07/19/2021, Additional history exists CKD PHOS USE SMARTSET 76322 03/09/2022 03/09/2021, 0 03/22/2019 DIABETES-EYE EXAM 03/26/2022 03/26/2021, , 08/10/2019, Additional history exists CKD HGB USE SMARTSET 90446 08/28/202208/28, 08/28/2021, 08/23/2021, Additional history exists Dexa [...] Negative Ketone, Urine Negative Negative mg/dL Specific [place], Urine 1.005 1.003 - 1.030 Blood, Urine [...] Documents on File Type Date Recorded Patient Attending Pathologist Expl anation Advanced 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 Directive Advanced Directive Advanced Directive Care Teams Oil Burner Servicer And Installer Relationship Specialty Start Date End Date Marcela Pinto MD [address] [place] [address] PCP - General Internal Medicine 08/04/14 documented as of this encounter"
--- OUTSIDE RECORDS SUMMARY | 2023-06-18 03:00 | External Medical Summary | Summary of Care ---
Author Name Unknown Organization [place] [address] Care Team Providers Care Pole Tester Name Role Phone Marcela Pinto MD Primary Care Provider + Reason for Visit * Reason Onset Date Comments Test Results 09/04/2021 Encounter Details Date Type Department Care Team Description 09/04/2021 Telephone [address]iology, [facility] [address] [place] [address] Dulce Merino CRNP [address] [place] [address] Test Results Allergies Active Allergy Reactions Severity Noted Date Comments Valsartan 07/10/2010 Enalapril 05/21/2006 Escitalopram Oxalate Nausea/vomiting 10/11/2009 Nauseated Iodinated Diagnostic Agents Nausea/vomiting 05/2010 IV Contrast Iodine Hives 12/18/2009 IV Contrast Metoprolol Tartrate 11/18/2006 Made pulse low [place] Oil-Black Currant-Vit E 07/10/2010 Verapamil 03/21/2004 Bupropion Hcl 10/30/2009 Makes pt sick in the stomach documented as of this encounter (statuses as of 09/04/2021) Medications Medication Sig Dispensed Refills Start Date [...] EVERY DAY 90 Tab 3 05/18/2021 Active methIMAzole 10 MG Oral Tablet (Tapazole)Indication s:Hyperthyroidism Take 1 Tab by mouth daily. 30 Tab 3 06/12/2021 Active Atorvastatin Calcium 80 MG Oral Tablet [...] in PM 270 Tablet 1 08/29/2021 Active documented as of this encounter (statuses as of 09/04/2021) Active Problems Problem Noted Date Subclinical hyperthyroidism [...] as of this encounter (statuses as of 09/04/2021) Resolved Problems Problem Noted Date Resolved Date [...] Hypoxemia 10/08/2011 10/30/2015 Genetic Sleep Disorder Research Other*[id number] 07/25/2011 05/15/2016 Diverticulitis of colon 07/25/2011 01/06/20 [...] as of this encounter (statuses as of 09/04/2021) Immunizations Name Administration Dates Next Due COVID-19 mRNA, LNP-s, No Pre serve, 2-Dose Series ([employer]) 08/21/2021,12/22/2020,2020 Hepatitis B, 20+ yrs 10/01/2017,04/21/2017,03/20 Pneumococcal [...] Telephone Encounter - Dionte Billy LPN - 09/04/2021 3:37 PM EST Called patient and left a message to make patient aware. ----- Message from NIECY Holder sent at 09/04/2021 12:40 PM EST ----- Stable documented in this encounter Plan of Treatment Upcoming Encounters Date Type Specialty Care Team Description 11/15/2021 Office Visit Internal Medicine Marcela Pinto MD [address] [place] [facility] [place] [address] 12/27/2021 Office Visit Cardiology Hammad Lopez, DO [address] [facility] [place] [address] Health Maintenance Due Date Last Done Comments Zoster Vaccines (2 of 3) 08/31/2012 07/06/2012 DIABETES-FOOT EXAM 12/21/2021 12/21/2020, 0 10/19/2019, 01/05/2019, Additional history exists COVID-19 Vaccine (4 - Booster for Pfizer series) 02/18/2022 08/21/2021, 12/22/2020, 2020 DIABETES-HGBA1C EVERY 6 MONTHS 02/20/2022 08/23/2021, 03/09/2021, 12/05/2020, Additional history exists CKD GFR USE SMARTSET 40975 03/03/202209/03, 08/28/2021, 07/19/2021, Additional history exists CKD PHOS USE SMARTSET 77515 03/09/2022 03/09/2021, 0 03/22/2019 DIABETES-EYE EXAM 03/26/2022 03/26/2021, , 08/10/2019, Additional history exists CKD HGB USE SMARTSET 20114 08/28/202208/28, 08/28/2021, 08/23/2021, Additional history exists Dexa [...] Documents on File Type Date Recorded 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
--- OUTSIDE RECORDS SUMMARY | 2023-06-18 03:00 | External Medical Summary | Summary of Care ---
Author Name Unknown Organization [place] [address] Care Team Providers Care Geochemical Manager Name Role Phone Alex Pinto MD Primary Care Provider + Reason for Visit * Reason Comments eRx-Medication Refill Encounter Details Date Type Department Care Team Description 09/05/2021 Refill General Internal Medicine [facility] [address] [place] [address] Alex Pinto MD [address] [place] [address] Hyperthyroidism Allergies Active Allergy Reactions Severity Noted Date Comments Valsartan 07/10/2010 Enalapril 05/21/2006 Escitalopram Oxalate Nausea/vomiting 10/11/2009 Nauseated Iodinated Diagnostic Agents Nausea/vomiting 05/2010 IV Contrast Iodine Hives 12/18/2009 IV Contrast Metoprolol Tartrate 11/18/2006 Made pulse low [place] Oil-Black Currant-Vit E 07/10/2010 Verapamil 03/21/2004 [...] s:Asthma with severity to be determined,COPD, moderate ([facility]) USE ONE NEBULIZER TREATMENT TWICE A DAY DIRECTED FOR WORSENING ASTHMA. J45.909, J44.9 225 mL 1 9 Active Albuterol Sulfate (VENTOLIN HFA) 108 (90 Base) MCG/ACT AERS Inhale 2 Puffs by mouth 2 times a day. 0 0 Active Lancets MISCIndications:Ty pe 2 diabetes mellitus with hemoglobin A1c goal of less than 7.0% ([facility]) Use as directed. USE TO [...] EVERY DAY 90 Tablet 1 1 Active methIMAzole 10 MG [...] Hypoxemia 10/08/2011 10/30/2015 Genetic Sleep Disorder Research Other*[id number] 07/25/2011 05/15/2016 Diverticulitis of colon 07/25/2011 01/06/20 [...] mRNA, LNP-s, No Pre serve, 2-Dose Series ([employer]) 08/21/2021,12/22/2020,2020 Hepatitis B, 20+ yrs 10/01/2017,04/21/2017,03/20 Pneumococcal [...] Telephone Encounter - Alex Pinto MD - 09/05/2021 8:53 AM EST Signed Prescriptions: Disp Refills methIMAzole 10 MG Oral Tablet (Tapazole) 90 Tab*1 Sig: TAKE 1 TABLET BY MOUTH EVERY DAY Authorizing Provider: ALEX PINTO * Telephone Encounter - Jordan Pinto [facility] - 09/05/2021 8:47 AM EST Pending Prescriptions: Disp Refills methIMAzole 10 MG Oral Tablet [Pharmacy Me*90 Tab*1 Sig: TAKE 1 TABLET BY MOUTH EVERY DAY * Telephone Encounter - Jordan Pinto [place] - 09/05/2021 8:47 AM EST Unable to authorize medication refills for pended medication(s) at this time. Part of the protocol criteria used for refill authorization was not satisfied. Patient's WBC is not within normal limits.Please approve if appropriate. Pending Prescriptions: Disp Refills methIMAzole 10 MG Oral Tablet [Pharmacy Me*90 Tab*1 Sig: TAKE 1 TABLET BY MOUTH EVERY DAY Last Office/Telemedicine Visit: 08/20/2021 Next Office Visit: 11/15/2021 Scheduled Provider(s): Alex Pinto MD If no future appointments scheduled, and last appointment is greater than a year ago, please schedule patient for a follow-up appointment Last date the medication was ordered: 06/12/21 Pharmacy: [id number] [facility] Is this request for a controlled [...] Internal Medicine Alex Pinto MD [address] [facility] [place] [address] 12/27/2021 Office Visit Cardiology Hammad Lopez DO [address] [facility] [place] [address] Health Maintenance Due Date Last Done Comments Zoster Vaccines (2 of 3) 08/31/2012 07/06/2012 DIABETES-FOOT EXAM 12/21/2021 12/21/2020, 0 10/19/2019, 01/05/2019, Additional history exists COVID-19 Vaccine (4 - Booster for Pfizer series) 02/18/2022 08/21/2021, 12/22/2020, 2020 DIABETES-HGBA1C EVERY 6 MONTHS 02/20/2022 08/23/2021, 03/09/2021, 12/05/2020, Additional history exists CKD GFR USE SMARTSET 92833 03/03/202209/03, 08/28/2021, 07/19/2021, Additional history exists CKD PHOS USE SMARTSET 78875 03/09/2022 03/09/2021, 0 03/22/2019 DIABETES-EYE EXAM 03/26/2022 03/26/2021, , 08/10/2019, Additional history exists CKD HGB USE SMARTSET 19192 08/28/202208/28, 08/28/2021, 08/23/2021, Additional history exists Dexa [...] Documents on File Type Date Recorded 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
--- OUTSIDE RECORDS SUMMARY | 2023-06-18 03:01 | External Medical Summary | Summary of Care ---
Author Name Unknown Organization [place] [address] Care Team Providers Care Satellite Tv Technician Name Role Phone Marcela Pinto MD Primary Care Provider + Reason for Visit * Reason Onset Date Comments case management 06/26/2021 Encounter Details Date Type Department Care Team Description 06/26/2021 Starch Dumper Telephone Family Practice [address] [address] Cici Gama, RN [address] [place] [address] case management Allergies Active Allergy Reactions Severity Noted Date Comments Valsartan 07/10/2010 Enalapril 05/21/2006 Escitalopram Oxalate Nausea/vomiting 10/11/2009 Nauseated Iodinated Diagnostic Agents Nausea/vomiting 05/2010 IV Contrast Iodine Hives 12/18/2009 IV Contrast Metoprolol Tartrate 11/18/2006 Made pulse low [place] Oil-Black Currant-Vit E 07/10/2010 Verapamil 03/21/2004 Bupropion Hcl 10/30/2009 Makes pt sick in the stomach documented as of this encounter (statuses as of 08/28/2021) Medications Medication Sig Dispensed Refills Start Date [...] mouth daily. 30 Tab 3 06/12/2021 Active Furosemide 40 MG Oral Tablet (Lasix)Indications:C hronic systolic heart failure (HCC),Paroxysmal atrial fibrillation (HCC),Chronic 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),NICM (nonischemic cardiomyopathy) (HCC),Chronic atrial fibrillation (HCC),Hospital discharge follow-up,Presence of Watchman left atrial appendage closure device 40 mg in AM, 40 mg in PM 270 Tab 1 06/13/2021 Active documented as of this encounter (statuses as of 08/28/2021) Active Problems Problem Noted Date Subclinical hyperthyroidism [...] as of this encounter (statuses as of 08/28/2021) Resolved Problems Problem Noted Date Resolved Date [...] Hypoxemia 10/08/2011 10/30/2015 Genetic Sleep Disorder Research Other*[id number] 07/25/2011 05/15/2016 Diverticulitis of colon 07/25/2011 01/06/20 [...] as of this encounter (statuses as of 08/28/2021) Immunizations Name Administration Dates Next Due COVID-19 mRNA, LNP-s, No Pre serve, 2-Dose Series ([employer]) 12/22/2020,2020 Hepatitis B, 20+ yrs 10/01/2017,04/21/2017,03/20 Pneumococcal Conjugate Vacc, 13 Valent (Prevnar) 03/28/2015 Pneumococcal Polysaccharide PPV23 (Pneumovax) 05/21/2006 Seasonal Influenza, Quadriva lent, No Preserve, 6 [...] encounter Miscellaneous Notes * Telephone Encounter - Cici Gama RN - 06/26/2021 11:11 AM EDT Follow up call..... Spoke with patient. Alert, oriented, pleasant. 1) Prednisone worked. Symptoms resolved. "It helped quite a bit." Patient reports she always has shortness of breath with exertion, but she is at her normal. 2) Follow up to [facility] home visit: -re amaryl. Discussed with patient. She is taking the correct dose. 1/2 of a 4 mg tablet daily. = 2mg daily. -difficulty paying for medications? CM called pharmacy, ensured medications are being billed through her [employer]/medicaid. Discussed with patient - no issues. Has medical assistance. Pays $1.30 - $4 co pays, and some medications have zero dollar co pays. No issue. Pharmacy will mail her scripts to her, so she doesn't have to worry about picking them up. Patient said thank you for the case of Glucerna, along with all the coupons. This will help save on use of her food stamps. No other current issues or needs. Reinforced role of casey saw operator. Encouraged to call with any issues or concerns. Confirmed patient has CM direct phone number and contact information. documented in this encounter Plan of Treatment Upcoming Encounters Date Type Specialty Care Team Description 08/31/2021 Laboratory Laboratory [address] [place] [address] 09/03/2021 Cardiac Studies Cardiac Studies 11/15/2021 Office Visit Internal Medicine Marcela Pinto MD [address] [place] [address] 12/27/2021 Office Visit Cardiology Hammad Lopez, DO [address] [place] [address] Health Maintenance Due Date Last Done Comments Zoster Vaccines (2 of 3) 08/31/2012 07/06/2012 DIABETES-FOOT EXAM 12/21/2021 12/21/2020, 0 10/19/2019, 01/05/2019, Additional history exists CKD GFR USE SMARTSET 98260 01/17/202207/19, 06/20/2021, 06/12/2021, Additional history exists COVID-19 Vaccine (4 - Booster for Pfizer series) 02/18/2022 08/21/2021, 12/22/2020, 2020 DIABETES-HGBA1C EVERY 6 MONTHS 02/20/2022 08/23/2021, 03/09/2021, 12/05/2020, Additional history exists CKD PHOS USE SMARTSET 75511 03/09/2022 03/09/2021, 0 03/22/2019 DIABETES-EYE EXAM 03/26/2022 03/26/2021, , 08/10/2019, Additional history exists CKD HGB USE SMARTSET 45329 08/23/202208/23, 05/28/2021, 05/21/2021, Additional history exists Dexa Scan 08/08/2025 08/08/2020, [...] Documents on File Type Date Recorded 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
--- OUTSIDE RECORDS SUMMARY | 2023-06-18 03:01 | External Medical Summary | Summary of Care ---
Author Name Unknown Organization [place] [address] Care Team Providers Care Devops Consultant Name Role Phone Marcela Pinto MD Primary Care Provider + Reason for Visit * Reason Comments Outpatient Testing Encounter Details Date Type Department Care Team Description 08/31/2021 Laboratory Laboratory [address] [place] [id number] , Specimen Drop Off [address] [place] [address] Screening for iron deficiency anemia Allergies Active Allergy Reactions Severity Noted Date Comments Valsartan 07/10/2010 Enalapril 05/21/2006 Escitalopram Oxalate Nausea/vomiting 10/11/2009 Nauseated Iodinated Diagnostic Agents Nausea/vomiting 05/2010 IV Contrast Iodine Hives 12/18/2009 IV Contrast Metoprolol Tartrate 11/18/2006 Made pulse low [place] Oil-Black Currant-Vit E 07/10/2010 Verapamil 03/21/2004 Bupropion Hcl 10/30/2009 Makes pt sick in the stomach documented as of this encounter (statuses as of 08/31/2021) Medications Medication Sig Dispensed Refills Start Date [...] Asthma with severity to be determined,COPD, moderate ([place] [...] as of this encounter (statuses as of 08/31/2021) Active Problems Problem Noted Date Subclinical hyperthyroidism [...] as of this encounter (statuses as of 08/31/2021) Resolved Problems Problem Noted Date Resolved Date [...] Hypoxemia 10/08/2011 10/30/2015 Genetic Sleep Disorder Research Other*[id number] 07/25/2011 05/15/2016 Diverticulitis of colon 07/25/2011 01/06/20 [...] as of this encounter (statuses as of 08/31/2021) Immunizations Name Administration Dates Next Due COVID-19 mRNA, LNP-s, No Pre serve, 2-Dose Series (NEHP) 08/21/2021,12/22/2020,2020 Hepatitis B, 20+ yrs 10/01/2017,04/21/2017,03/20 Pneumococcal [...] Encounters Date Type Specialty Care Team Description 09/03/2021 Cardiac Studies Cardiac Studies 11/15/2021 Office Visit Internal Medicine Marcela Pinto MD [address] [place] [facility] [place] [address] 12/27/2021 Office Visit Cardiology Hammad Lopez, DO [address] [facility] [place] [address] Pending Results Name Type Priority Associated Diagnoses Date /Time FECAL OCCULT BLOOD, EIA Lab Routine Screening for iron deficiency anemia 08/31/2021 9:42 AM EST Health Maintenance Due Date Last Done Comments Zoster Vaccines (2 of 3) 08/31/2012 07/06/2012 DIABETES-FOOT EXAM 12/21/2021 12/21/2020, 0 10/19/2019, 01/05/2019, Additional history exists COVID-19 Vaccine (4 - Booster for Pfizer series) 02/18/2022 08/21/2021, 12/22/2020, 2020 DIABETES-HGBA1C EVERY 6 MONTHS 02/20/2022 08/23/2021, 03/09/2021, 12/05/2020, Additional history exists CKD GFR USE SMARTSET 74100 02/25/202208/28, 07/19/2021, 06/20/2021, Additional history exists CKD PHOS USE SMARTSET 58390 03/09/2022 03/09/2021, 0 03/22/2019 DIABETES-EYE EXAM 03/26/2022 03/26/2021, , 08/10/2019, Additional history exists CKD HGB USE SMARTSET 73255 08/28/202208/28, 08/28/2021, 08/23/2021, Additional history exists Dexa [...] as of this encounter Visit Diagnoses Diagnosis Screening for iron deficiency anemia documented in this encounter Advance Directives Documents on File Type Date Recorded 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
--- OUTSIDE RECORDS SUMMARY | 2023-06-18 03:01 | External Medical Summary | Summary of Care ---
Author Name Unknown Organization [place] [address] Care Team Providers Care Pens And Pencils Repairer Name Role Phone Alex Pinto MD Primary Care Provider + Reason for Visit * Reason Onset Date Comments Medication Refill 08/28/2021 Encounter Details Date Type Department Care Team Description 08/28/2021 Refill General Internal Medicine [facility] [address] [facility] [address] Alex Pinto MD [address] [place] [address] GENERAL OSTEOARTHROSIS Allergies Active Allergy Reactions Severity Noted Date Comments Valsartan 07/10/2010 Enalapril 05/21/2006 Escitalopram Oxalate Nausea/vomiting 10/11/2009 Nauseated Iodinated Diagnostic Agents Nausea/vomiting 05/2010 IV Contrast Iodine Hives 12/18/2009 IV Contrast Metoprolol Tartrate 11/18/2006 Made pulse low [place] Oil-Black Currant-Vit E 07/10/2010 Verapamil 03/21/2004 Bupropion Hcl 10/30/2009 Makes pt sick in the stomach documented as of this encounter (statuses as of 08/29/2021) Medications Medication Sig Dispensed Refills Start Date [...] 04/09/2021 Active Zafirlukast 20 MG Oral Tablet (Accolate)Indicatio ns:Asthma with severity to be determined TAKE 1 TABLET BY MOUTH EVERY DAY 90 Tab 3 05/18/2021 Active methIMAzole 10 MG Oral Tablet (Tapazole)Indicatio ns:Hyperthyroidism Take 1 Tab by mouth daily. 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 120 Tablet 0 08/29/2021 Active HYDROcodone-Acetami nophen 5-325 MG Oral TabletIndications:G eneralized osteoarthritis Take 1 Tab by mouth every 6 hours as needed for Pain, Mild. 120 Tab 0 07/18/2021 08/28/20 21 Discontinu ed(Refill) documented as of this encounter (statuses as of 08/29/2021) Active Problems Problem Noted Date Subclinical hyperthyroidism [...] as of this encounter (statuses as of 08/29/2021) Resolved Problems Problem Noted Date Resolved Date [...] Hypoxemia 10/08/2011 10/30/2015 Genetic Sleep Disorder Research Other*[id number] 07/25/2011 05/15/2016 Diverticulitis of colon 07/25/2011 01/06/20 [...] as of this encounter (statuses as of 08/29/2021) Immunizations Name Administration Dates Next Due COVID-19 mRNA, LNP-s, No Pre serve, 2-Dose Series ([place]) 08/21/2021,12/22/2020,2020 Hepatitis B, 20+ yrs 10/01/2017,04/21/2017,03/20 Pneumococcal [...] Telephone Encounter - Alex Pinto MD - 08/29/2021 1:57 PM EST Signed Prescriptions: Disp Refills HYDROcodone-Acetaminophen 5-325 MG Oral Ta*120 Ta*0 Sig: Take 1 Tablet by mouth every 6 hours as needed for Pain, Mild. Authorizing Provider: ALEX PINTO * Telephone Encounter - Missy Carbajal [facility] - 08/29/2021 8:27 AM EST Pending Prescriptions: Disp Refills HYDROcodone-Acetaminophen 5-325 MG Oral T*120 Ta*0 Sig: Take 1 Tablet by mouth every 6 hours as needed for Pain, Mild. * Telephone Encounter - Missy Carbajal RPh - 08/29/2021 8:27 AM EST I have reviewed the patients controlled substance dispensing history in the Prescription Drug Monitoring Program in compliance with the [facility] regulations before prescribing a controlled substance. PDMP checked on 08/29/2021. Pending Prescriptions: Disp Refills HYDROcodone-Acetaminophen 5-325 MG Oral T*120 Ta*0 Sig: Take 1 Tablet by mouth every 6 hours as needed for Pain, Mild. Last Office/Telemedicine Visit: 08/20/2021 Next Office Visit: 11/15/2021 Scheduled Provider(s): Alex Pinto MD Date medication was last filled: 07/23 Date medication is due for refill: 08/22 Pharmacy: [id number] [facility] Is [...] Results Review. Please approve if appropriate. Thank you, Missy Carbajal PharmD. Clinical Pharmacist Pharmacy Refill Call Center 08/29/2021, 8:27 AM * Telephone Encounter - CRISTIANO Cat - 08/28/2021 10:37 AM EST Pending Prescriptions: Disp Refills HYDROcodone-Acetaminophen 5-325 MG Oral T*120 Ta*0 Sig: Take 1 Tablet by mouth every 6 hours as needed for Pain, Mild. Last Office/Telemedicine Visit: 08/20/2021 Next Office Visit: 11/15/2021 Scheduled Provider(s): Alex Pinto MD If no future appointments scheduled, and last appointment is greater than a year ago, please schedule patient for a follow-up appointment Last date the medication was ordered: 07/18/2021 Pharmacy: [id number] [facility] Is [...] Lab Results Component Value Date/Time CREAT 1.0 07/19/2021 01:05 PM CREAT 1.08 (A) 06/12/2021 12:00 AM CREAT 1.0 05/27/2020 04:51 PM POTASSIUM 4.6 07/19/2021 01:05 PM POTASSIUM 4.1 06/12/2021 12:00 AM POTASSIUM [...] Specialty Care Team Description 08/31/2021 Laboratory Laboratory [address] [place] [address] 09/03/2021 Cardiac Studies Cardiac Studies 11/15/2021 Office Visit Internal Medicine Alex Pinto MD [address] [facility] [place] [address] 12/27/2021 Office Visit Cardiology Hammad Lopez, DO [address] [facility] [place] [address] Health Maintenance Due Date Last Done Comments Zoster Vaccines (2 of 3) 08/31/2012 07/06/2012 DIABETES-FOOT EXAM 12/21/2021 12/21/2020, 0 10/19/2019, 01/05/2019, Additional history exists COVID-19 Vaccine (4 - Booster for Pfizer series) 02/18/2022 08/21/2021, 12/22/2020, 2020 DIABETES-HGBA1C EVERY 6 MONTHS 02/20/2022 08/23/2021, 03/09/2021, 12/05/2020, Additional history exists CKD GFR USE SMARTSET 54261 02/25/202208/28, 07/19/2021, 06/20/2021, Additional history exists CKD PHOS USE SMARTSET 14060 03/09/2022 03/09/2021, 0 03/22/2019 DIABETES-EYE EXAM 03/26/2022 03/26/2021, , 08/10/2019, Additional history exists CKD HGB USE SMARTSET 01034 08/23/202208/28, 08/28/2021, 08/23/2021, Additional history exists Dexa Scan [...] Documents on File Type Date Recorded 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
--- OUTSIDE RECORDS SUMMARY | 2023-06-18 03:01 | External Medical Summary | Summary of Care ---
Author Name Unknown Organization [place] [address] Care Team Providers Care Flight Operations Coordinator Name Role Phone Marcela Pinto MD Primary Care Provider + Reason for Visit * Reason Onset Date Comments Test Results 08/24/2021 08/24/2021 Encounter Details Date Type Department Care Team Description 08/24/2021 Telephone [facility], [facility] [address] Tavo Gerber CRNP [address] [facility] [address] Test Results (08/24/2021) Allergies Active Allergy Reactions Severity Noted Date Comments Valsartan 07/10/2010 Enalapril 05/21/2006 Escitalopram Oxalate Nausea/vomiting 10/11/2009 Nauseated Iodinated Diagnostic Agents Nausea/vomiting 05/2010 IV Contrast Iodine Hives 12/18/2009 IV Contrast Metoprolol Tartrate 11/18/2006 Made pulse low [place] Oil-Black Currant-Vit E 07/10/2010 Verapamil 03/21/2004 Bupropion Hcl 10/30/2009 Makes pt sick in the stomach documented as of this encounter (statuses as of 08/30/2021) Medications Medication Sig Dispensed Refills Start Date [...] s:Asthma with severity to be determined,COPD, moderate (RALPH [...] by mouth daily. 0 12/14/19 21 Active Dicyclomine HCl 20 MG Oral Tablet (Bentyl)Indication s:Chronic constipation TAKE 1 TABLET BY MOUTH EVERY DAY 90 Tab 2 01/26/20 21 Active Omeprazole 20 MG Oral Capsule Delayed Release (PriLOSEC)Indicati ons:Ischemic colitis (HCC) TAKE 1 CAPSULE BY MOUTH TWICE A DAY 180 Cap 1 04/03/20 21 Active CareSens N Voice System Device Use as directed. Tests three times daily/E11.9 0 Active CareSens N Glucose Test In Vitro Strip (Glucose Blood) Test as directed. Tests three times daily 0 Active Klor-Con M20 20 MEQ Oral Tablet Extended Release (Potassium Chloride Annalisa ER)Indications:HTN , goal below 140/90 TAKE 1 TABLET BY MOUTH EVERY DAY 90 Tab 1 04/13/20 21 Active Aspirin 81 MG Oral Tablet Delayed [...] DAY 90 Tab 3 05/18/20 21 Active methIMAzole 10 MG Oral Tablet (Tapazole)Indicati ons:Hyperthyroidis m Take 1 Tab by mouth daily. 30 Tab 3 06/12/20 21 Active Atorvastatin Calcium 80 MG Oral Tablet (Lipitor)Indicatio ns:Hyperlipidemia with target LDL less than 100,Chronic systolic heart failure (HCC),Paroxysmal atrial fibrillation (HCC),Chronic 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),NICM (nonischemic cardiomyopathy) (HCC),Chronic atrial fibrillation (HCC),Hospital discharge follow-up,Presence of Watchman left atrial appendage closure device Take 1 Tab by mouth daily. 90 Tab 3 06/26/20 21 Active Metoprolol Succinate ER 25 MG Oral Tablet Extended Release 24 Hour (toPROL XL)Indications:Chr onic 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 135 Tab 3 07/12/20 21 Active Spironolactone 25 MG Oral Tablet [...] NEEDED FOR NAUSEA 60 Tab 2 07/18/20 Active Ipratropium-[place] rol 20-100 MCG/ACT Inhalation Aerosol Solution (Combivent Respimat)Indicatio ns:Asthma with severity to be determined,COPD, moderate (HCC) TAKE 1 PUFF BY MOUTH 4 TIMES A DAY 12 g 0 08/09/20 21 Active Zoster Vac Recomb Adjuvanted 50 MCG/0.5ML Intramuscular Suspension Reconstituted (Shingrix) Inject 0.5 mL into a large muscle now and repeat dose in 60 to 180 days 1 Each 1 08/09/20 Active Furosemide 40 MG Oral Tablet (Lasix)Indications :Chronic systolic heart failure (HCC),Paroxysmal atrial fibrillation (HCC),Chronic 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),NICM (nonischemic cardiomyopathy) (HCC),Chronic atrial fibrillation (HCC),Hospital discharge follow-up,Presence of Watchman left atrial appendage closure device 60 mg in AM, 40 mg in PM 270 Tablet 1 08/29/20 21 Active Furosemide 40 MG Oral Tablet (Lasix)Indications :Chronic systolic heart failure (HCC),Paroxysmal atrial fibrillation (HCC),Chronic 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),NICM (nonischemic cardiomyopathy) (HCC),Chronic atrial fibrillation (HCC),Hospital discharge follow-up,Presence of Watchman left atrial appendage closure device 40 mg in AM, 40 mg in PM 270 Tab 1 06/13/20 21 021 Discontinued HYDROcodone-Acetam inophen 5-325 MG Oral TabletIndications: Generalized osteoarthritis Take 1 Tab by mouth every 6 hours as needed for Pain, Mild. 120 Tab 0 07/18/20 21 021 Discontinued(Re fill) documented as of this encounter (statuses as of 08/30/2021) Active Problems Problem Noted Date Subclinical hyperthyroidism [...] as of this encounter (statuses as of 08/30/2021) Resolved Problems Problem Noted Date Resolved Date [...] Hypoxemia 10/08/2011 10/30/2015 Genetic Sleep Disorder Research Other*[id number] 07/25/2011 05/15/2016 Diverticulitis of colon 07/25/2011 01/06/20 [...] as of this encounter (statuses as of 08/30/2021) Immunizations Name Administration Dates Next Due COVID-19 mRNA, LNP-s, No Pre serve, 2-Dose Series ([employer]) 08/21/2021,12/22/2020,2020 Hepatitis B, 20+ yrs 10/01/2017,04/21/2017,03/20 Pneumococcal [...] encounter Miscellaneous Notes * Telephone Encounter - Yoan Lawson LPN - 08/30/2021 4:12 PM EST Pt verbalized understanding & agreeable to plan. * Addendum Note - INECY Holder - 08/29/2021 4:40 PM EST Addended by: TAVO GERBER on: 08/29/2021 04:40 PM Modules accepted: Orders * Telephone Encounter - NIECY Holder - 08/29/2021 4:38 PM EST Since patient felt better on increased dose of Lasix, would recommend continuing with Lasix 60 mg in the morning and 40 mg in the afternoon as a new maintenance dose. Repeat BMP in 1 week. NIECY Gonzalez * Telephone Encounter - Ida Meza RN - 08/29/2021 1:46 PM EST Called, spoke with patient. States did note improvement in symptoms of bloating with additional diuretic use. Has not weighed self today. * Telephone Encounter - NIECY Holder - 08/29/2021 8:55 AM EST Kidney function stable. BNP elevated. Did she notice any improvement in her symptoms on her increased dose of diuretic those 2 days ? Thanks, NIECY Gonzalez * Telephone Encounter - Marcela Pinto MD - 08/27/2021 2:27 PM EST Noted. * Telephone Encounter - Dodie Carson LPN - 08/24/2021 4:19 PM EST Patient is aware and verbalizes understanding. Both lab appts scheduled Pt states that she was already taking ferrous sulfate 325 mg every day But she has not been taking Vit C with it She will start taking it every other day with Vit C as advised * Telephone Encounter - PARIS Arita - 08/24/2021 4:10 PM EST Tried calling Patient to follow up, Phone number rings and then goes to message that ask's you to please enter cammy number and then you cannot leave a message, Pt does not have My G. Will try again \ PARIS Arita * Telephone Encounter - Marcela Pinto MD - 08/24/2021 3:35 PM EST Noted. Patient does have a history of diverticular/GI bleed and have received transfusion in the past whenshe was admitted in the hospital. Need to get additional blood work as ordered and need to take iron pill , ferrous sulfate 325 mg tablet 1 every other day with vitamin-C tablet. Need to get stool occult blood now with the next blood work and also repeat CBCD again in a week from now. All the orders are in. Please inform the patient. For any significant shortness of breath, any obvious blood in the stool or dark blood with or without abdominal pain she should go to emergency room. Thanks * Telephone Encounter - Darren Mejia RN - 08/24/2021 9:58 AM EST Called and spoke tot he patient and reviewed the message with her from Tavo PEMBERTON in regards to he chest xray and lab work and medication adjustment. She stated she understood. Explained to contact Dr. Marcela Pinto in regards to her lab work for follow up. She stated she would. * Telephone Encounter - Darren Mejia RN - 08/24/2021 9:58 AM EST ----- Message from NIECY Holder sent at 08/23/2021 3:56 PM EST ----- Please let the patient know that I reviewed her chest xray- they are calling the image small effusions and mild central central congestion. I am not entirely convinced that she was holding onto much fluid by exam. I did have her get a CBC also which showed a decline in her hemoglobin which could beanother cause of shortness of breath. I would like her to obtain some more lab work for me to look a little further. I would also like her to see her PCP soon in follow up to evaluate the anemia and other causes of shortness of breath. In the mean time though- starting tomorrow please have her take 60 mg of lasix in the morning and 40 mg in the afternoon x2 days- see if this improves her symptoms at all through out the day. documented in this encounter Plan of Treatment Upcoming Encounters Date Type Specialty Care Team Description 08/31/2021 Laboratory Laboratory [address] [place] [address] 09/03/2021 Cardiac Studies Cardiac Studies 11/15/2021 Office Visit Internal Medicine Marcela Pinto MD [address] [place] [address] 12/27/2021 Office Visit Cardiology Hammad Lopez, DO [address] [facility] [place] [address] Scheduled Orders Name Type Priority Associated Diagnoses Orde r Schedule OCCULT BLOOD SCREEN, 3 CARD MAIL IN Lab Routine Screening for deficiency anemia Expected: 08/24/2021, Expires: 08/24/2022 BASIC METABOLIC PANEL Lab STAT Screening for deficiency anemia Chronic systolic heart failure (HCC) Paroxysmal atrial fibrillation (HCC) Chronic 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) NICM (nonischemic cardiomyopathy) (HCC) Chronic atrial fibrillation (HCC) Hospital discharge follow-up Presence of Watchman left atrial appendage closure device Expected: 09/05/2021, Expires: 08/29/2022 Health Maintenance Due Date Last Done Comments Zoster Vaccines (2 of 3) 08/31/2012 07/06/2012 DIABETES-FOOT EXAM 12/21/2021 12/21/2020, 0 10/19/2019, 01/05/2019, Additional history exists COVID-19 Vaccine (4 - Booster for Pfizer series) 02/18/2022 08/21/2021, 12/22/2020, 2020 DIABETES-HGBA1C EVERY 6 MONTHS 02/20/2022 08/23/2021, 03/09/2021, 12/05/2020, Additional history exists CKD GFR USE SMARTSET 80770 02/25/202208/28, 07/19/2021, 06/20/2021, Additional history exists CKD PHOS USE SMARTSET 47183 03/09/2022 03/09/2021, 0 03/22/2019 DIABETES-EYE EXAM 03/26/2022 03/26/2021, , 08/10/2019, Additional history exists CKD HGB USE SMARTSET 16793 08/28/202208/28, 08/28/2021, 08/23/2021, Additional history exists Dexa [...] this encounter Visit Diagnoses Diagnosis Screening for deficiency anemia- Primary Screening for other and unspecified deficiency anemia Chronic systolic heart failure (HCC) Chronic [...] on File Type Date Recorded Patient Director Surgical Expl anation Advanced 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 Directive Advanced Directive Advanced Directive Care Teams Flight Operations Coordinator Relationship Specialty Start Date End Date Marcela Pinto MD [address] [place] [address] PCP - General Internal Medicine 08/04/14 documented as of this encounter
--- OUTSIDE RECORDS SUMMARY | 2023-06-18 03:01 | External Medical Summary | Summary of Care ---
Author Name Unknown Organization [place] [address] Care Team Providers Care Project Construction Assistant Manager Name Role Phone Marcela Pinto MD Primary Care Provider + Reason for Visit * Reason Onset Date Comments Test Results 08/24/2021 08/24/2021 Encounter Details Date Type Department Care Team Description 08/24/2021 [facility]phone [facility] [address] Tavo Gerber CRNP [address] [facility] [place] [place] [address] Test Results (08/24/2021) Allergies Active Allergy Reactions Severity Noted Date Comments Valsartan 07/10/2010 Enalapril 05/21/2006 Escitalopram Oxalate Nausea/vomiting 10/11/2009 Nauseated Iodinated Diagnostic Agents Nausea/vomiting 05/2010 IV Contrast Iodine Hives 12/18/2009 IV Contrast Metoprolol Tartrate 11/18/2006 Made pulse low [place] Oil-Black Currant-Vit E 07/10/2010 Verapamil 03/21/2004 Bupropion [...] Hypoxemia 10/08/2011 10/30/2015 Genetic Sleep Disorder Research Other*[id number] 07/25/2011 05/15/2016 Diverticulitis of colon 07/25/2011 01/06/20 [...] mRNA, LNP-s, No Pre serve, 2-Dose Series ([employer]) 08/21/2021,12/22/2020,2020 Hepatitis B, 20+ yrs 10/01/2017,04/21/2017,03/20 Pneumococcal [...] encounter Miscellaneous Notes * Addendum Note - NIECY Holder - 08/29/2021 4:40 PM EST Addended [...] Specialty Care Team Description 08/31/2021 Laboratory Laboratory [address] [place] [address] 09/03/2021 Cardiac Studies Cardiac Studies 11/15/2021 Office Visit Internal Medicine Marcela Pinto MD [address] [place] [address] 12/27/2021 Office Visit Cardiology Hammad Lopez, 132 [facility] [place] [address] Scheduled Orders Name Type Priority Associated Diagnoses [...] Additional history exists CKD GFR USE SMARTSET 82399 02/25/202208/28, 07/19/2021, 06/20/2021, Additional history exists CKD PHOS USE SMARTSET 90713 03/09/2022 03/09/2021, 0 03/22/2019 DIABETES-EYE EXAM 03/26/2022 03/26/2021, , 08/10/2019, Additional history exists CKD HGB USE SMARTSET 10277 08/23/202208/28, 08/28/2021, 08/23/2021, Additional history exists Dexa [...] Documents on File Type Date Recorded Patient Belt Builder Expl 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 Directive Advanced Directive Advanced Directive Care Teams Project Construction Assistant Manager Relationship Specialty Start Date End Date Marcela Pinto MD [address] [facility] [place], [place] [id number] PCP - General Internal Medicine 08/04/14 documented as of this encounter
--- OUTSIDE RECORDS SUMMARY | 2023-06-18 03:01 | External Medical Summary ---
Author Name Unknown Address Unknown Organization [facility] [place] [address] Laboratory Report Ordering Provider Test Date Status GEMA VOISO 09/03/2021 16:04:41 Final Observation Date Value Abnormality Reference (Units ) Status BUN 09/03/2021 16:04:41 18 6-20 (mg/dL) Final Creatinine 09/03/2021 16:04:41 1.1 Above high normal 0.5-1.0 (mg/dL) Final Glomerular filtration rate/1.73 sq M.predicted [Volume Rate/Area] in Serum, Plasma or Blood by Creatinine-based formula (CKD-EPI) 09/03/2021 16:04:41 48 Below low normal >=60 (mL/min) Final Performing Location [facility] [place] [address]
--- OUTSIDE RECORDS SUMMARY | 2023-06-18 03:01 | External Medical Summary | Summary of Care ---
Author Name Unknown Organization [place] [address] Care Team Providers Care Unit Controller Name Role Phone Marcela Pinto MD Primary Care Provider + Reason for Visit * Reason Onset Date Comments Test Results 08/24/2021 08/24/2021 Encounter Details Date Type Department Care Team Description 08/24/2021 Telephone Cardiology, [facility] [address] Dulce Merino CRNP [address] [facility] [place] [address] Test Results (08/24/2021) Allergies Active Allergy Reactions Severity Noted Date Comments Valsartan 07/10/2010 Enalapril 05/21/2006 Escitalopram Oxalate Nausea/vomiting 10/11/2009 Nauseated Iodinated Diagnostic Agents Nausea/vomiting 05/2010 IV Contrast Iodine Hives 12/18/2009 IV Contrast Metoprolol Tartrate 11/18/2006 Made pulse low [place] Oil-Black Currant-Vit E 07/10/2010 Verapamil 03/21/2004 Bupropion [...] albuterol sulfate (PROVENTIL) (2.5 MG/3ML) 0.083% nebulizer solutionIndications:A sthma with severity to be determined,COPD, moderate ([facility] [...] Active Dicyclomine HCl 20 MG Oral Tablet (Bentyl)Indications:C hronic constipation TAKE 1 TABLET BY MOUTH EVERY DAY 90 Tab 2 01/25/2021 Active Omeprazole 20 MG Oral Capsule Delayed Release (PriLOSEC)Indications :Ischemic colitis (HCC) TAKE 1 CAPSULE BY MOUTH [...] Active Advair HFA 230-21 MCG/ACT Inhalation Aerosol (fluticasone-Salmeter ol) Inhale 2 Puffs by mouth 2 times a day. 0 04/09/2021 Active Zafirlukast 20 MG Oral Tablet (Accolate)Indications :Asthma with severity to be determined TAKE 1 TABLET BY MOUTH EVERY DAY 90 Tab 3 05/18/2021 Active methIMAzole 10 MG Oral Tablet (Tapazole)Indications :Hyperthyroidism Take 1 Tab by mouth daily. 30 Tab 3 06/12/2021 Active Furosemide 40 MG Oral Tablet (Lasix)Indications:Ch ronic systolic heart failure (HCC),Paroxysmal atrial fibrillation (HCC),Chronic 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),NICM (nonischemic cardiomyopathy) (HCC),Chronic atrial fibrillation (HCC),Hospital discharge follow-up,Presence of Watchman left atrial appendage closure device 40 mg in AM, 40 mg in PM 270 Tab 1 06/13/2021 Active Atorvastatin Calcium 80 MG Oral Tablet (Lipitor)Indications: Hyperlipidemia with target LDL less than 100,Chronic systolic heart failure (HCC),Paroxysmal atrial fibrillation (HCC),Chronic 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),NICM (nonischemic cardiomyopathy) (HCC),Chronic atrial fibrillation (HCC),Hospital discharge follow-up,Presence of Watchman left atrial appendage closure device Take 1 Tab by mouth daily. 90 Tab 3 06/26/2021 Active Metoprolol Succinate ER 25 MG Oral Tablet Extended Release 24 Hour (toPROL XL)Indications:Chroni c heart failure with reduced ejection fraction and [...] 08/23/2021 Promethazine HCl 25 MG Oral Tablet (Phenergan)Indication s:Generalized osteoarthritis TAKE 1 TABLET BY MOUTH EVERY 6 HOURS NEEDED FOR NAUSEA 60 Tab 2 07/18/2021 Active HYDROcodone-Acetamino phen 5-325 MG Oral TabletIndications:Gen eralized osteoarthritis Take 1 Tab by mouth every 6 hours as needed for Pain, Mild. 120 Tab 0 07/18/2021 Active Ipratropium-Albuterol 20-100 MCG/ACT Inhalation Aerosol Solution (Combivent Respimat)Indications: Asthma with severity to be determined,COPD, moderate ([facility]) TAKE 1 PUFF BY MOUTH 4 TIMES A DAY 12 g 0 08/09/2021 Active Zoster Vac Recomb Adjuvanted 50 MCG/0.5ML Intramuscular Suspension Reconstituted (Shingrix) Inject 0.5 mL into a large muscle now and repeat dose in 60 to 180 days 1 Each 1 08/09/2021 Active documented as of this encounter (statuses [...] Hypoxemia 10/08/2011 10/30/2015 Genetic Sleep Disorder Research Other*[id number] 07/25/2011 05/15/2016 Diverticulitis of colon 07/25/2011 01/06/20 [...] mRNA, LNP-s, No Pre serve, 2-Dose Series ([employer]) 08/21/2021,12/22/2020,2020 Hepatitis B, 20+ yrs 10/01/2017,04/21/2017,03/20 Pneumococcal [...] and reviewed the message with her from Dulce PEMBERTON in regards to he chest xray [...] Specialty Care Team Description 08/31/2021 Laboratory Laboratory [place], [address] [place] [address] 09/03/2021 Cardiac Studies Cardiac Studies 11/15/2021 Office Visit Internal Medicine Marcela Pinto MD [address] [place] [address] 12/27/2021 Office Visit Cardiology Hammad Lopez, DO [address] [facility] [place] [address] Scheduled Orders Name Type Priority Associated Diagnoses Orde r Schedule OCCULT BLOOD SCREEN, 3 CARD MAIL IN Lab Routine Screening for deficiency anemia Expected: 08/24/2021, Expires: 08/24/2022 Health Maintenance Due Date Last Done Comments Zoster Vaccines (2 of 3) 08/31/2012 07/06/2012 DIABETES-FOOT EXAM 12/21/2021 12/21/2020, 0 10/19/2019, 01/05/2019, Additional history exists COVID-19 Vaccine (4 - Booster for Pfizer series) 02/18/2022 08/21/2021, 12/22/2020, 2020 DIABETES-HGBA1C EVERY 6 MONTHS 02/20/2022 08/23/2021, 03/09/2021, 12/05/2020, Additional history exists CKD GFR USE SMARTSET 00300 02/25/202208/28, 07/19/2021, 06/20/2021, Additional history exists CKD PHOS USE SMARTSET 91658 03/09/2022 03/09/2021, 0 03/22/2019 DIABETES-EYE EXAM 03/26/2022 03/26/2021, , 08/10/2019, Additional history exists CKD HGB USE SMARTSET 76823 08/23/202208/28, 08/28/2021, 08/23/2021, Additional history exists Dexa [...] Screening for other and unspecified deficiency anemia documented in this encounter Advance Directives Documents on File Type Date Recorded Patient Floor Assembler Expl 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 Directive Advanced Directive Advanced Directive Care Teams Unit Controller Relationship Specialty Start Date End Date Marcela Pinto MD [address] [facility] [place] [address] PCP - General Internal Medicine 08/04/14 documented as of this encounter
--- OUTSIDE RECORDS SUMMARY | 2023-06-18 03:01 | External Medical Summary | Summary of Care ---
Author Name Unknown Organization [place] [address] Care Team Providers Care Marker Assembler Name Role Phone Marcela Pinto MD Primary Care Provider + Reason for Visit * Reason Onset Date Comments Test Results 08/24/2021 08/24/2021 Encounter Details Date Type Department Care Team Description 08/24/2021 Telephone Cardiology, [facility] [address] Dulce Merino CRNP [address] [place] [address] Test Results (08/24/2021) Allergies Active Allergy Reactions Severity Noted Date Comments Valsartan 07/10/2010 Enalapril 05/21/2006 Escitalopram Oxalate Nausea/vomiting 10/11/2009 Nauseated Iodinated Diagnostic Agents Nausea/vomiting 05/2010 IV Contrast Iodine Hives 12/18/2009 IV Contrast Metoprolol Tartrate 11/18/2006 Made pulse low [place] Oil-Black Currant-Vit E 07/10/2010 Verapamil 03/21/2004 Bupropion [...] sthma with severity to be determined,COPD, moderate ([facility], [...] Hypoxemia 10/08/2011 10/30/2015 Genetic Sleep Disorder Research Other*[id number] 07/25/2011 05/15/2016 Diverticulitis of colon 07/25/2011 01/06/20 [...] mRNA, LNP-s, No Pre serve, 2-Dose Series ([employer]) 08/21/2021,12/22/2020,2020 Hepatitis B, 20+ yrs 10/01/2017,04/21/2017,03/20 [...] Specialty Care Team Description 08/31/2021 Laboratory Laboratory [address] [place] [address] 09/03/2021 Cardiac Studies Cardiac Studies 11/15/2021 Office Visit Internal Medicine [facility]a [facility]into MD [address] [facility] [address] 12/27/2021 Office Visit Cardiology Hammad Lopez, DO [address] [facility] [place] [address] Scheduled Orders Name Type Priority Associated Diagnoses [...] Additional history exists CKD GFR USE SMARTSET 38640 02/25/202208/28, 07/19/2021, 06/20/2021, Additional history exists CKD PHOS USE SMARTSET 26326 03/09/2022 03/09/2021, 0 03/22/2019 DIABETES-EYE EXAM 03/26/2022 03/26/2021, , 08/10/2019, Additional history exists CKD HGB USE SMARTSET 92469 08/23/202208/28, 08/28/2021, 08/23/2021, Additional history exists Dexa [...] Documents on File Type Date Recorded Patient Histology Manager Expl 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 Directive Advanced Directive Advanced Directive Care Teams Marker Assembler Relationship Specialty Start Date End Date Marcela Pinto MD [address] [place] [address] PCP - General Internal Medicine 08/04/14 documented as of this encounter
--- OUTSIDE RECORDS SUMMARY | 2023-06-18 03:01 | External Medical Summary | Summary of Care ---
Author Name Unknown Organization [place] [address] Care Team Providers Care Metal Stamper Name Role Phone Marcela Pinto MD Primary Care Provider + Reason for Visit * Reason Comments Outpatient Testing Encounter Details Date Type Department Care Team Description 08/28/2021 Laboratory Laboratory [address] [place] [phone] [place] [phone] Chronic systolic heart failure (HCC); Paroxysmal atrial fibrillation (HCC); KULKARNI (dyspnea on exertion); Anemia, unspecified type; Screening for deficiency anemia Allergies Active Allergy Reactions Severity Noted Date Comments Valsartan 07/10/2010 Enalapril 05/21/2006 Escitalopram Oxalate Nausea/vomiting 10/11/2009 Nauseated Iodinated Diagnostic Agents Nausea/vomiting 05/2010 IV Contrast Iodine Hives 12/18/2009 IV Contrast Metoprolol Tartrate 11/18/2006 Made pulse low [place] Oil-Black Currant-Vit E 07/10/2010 Verapamil 03/21/2004 Bupropion [...] EVERY DAY 90 Tab 3 1 Active methIMAzole 10 MG Oral Tablet (Tapazole)Indicati ons:Hyperthyroidis m Take 1 Tab by mouth daily. 30 Tab 3 1 Active Atorvastatin Calcium 80 [...] 40 mg in PM 270 Tab 1 1 08/29/20 21 Discontinued HYDROcodone-Acetam inophen 5-325 MG Oral TabletIndications: Generalized osteoarthritis Take 1 Tab by mouth every 6 hours as needed for Pain, Mild. 120 Tab 0 1 08/28/20 21 Discontinued(Re fill) documented as of this encounter [...] Hypoxemia 10/08/2011 10/30/2015 Genetic Sleep Disorder Research Other*[id number] 07/25/2011 05/15/2016 Diverticulitis of colon 07/25/2011 01/06/20 [...] mRNA, LNP-s, No Pre serve, 2-Dose Series (Call [place]) 08/21/2021,12/22/2020,2020 Hepatitis B, 20+ yrs 10/01/2017,04/21/2017,03/20 Pneumococcal [...] Internal Medicine Marcela Pinto MD [address] [facility] [place] [address] 12/27/2021 Office Visit Cardiology Hammad Lopez DO [address] [facility] [place] [address] Health Maintenance Due Date Last Done Comments Zoster Vaccines (2 of 3) 08/31/2012 07/06/2012 DIABETES-FOOT EXAM 12/21/2021 12/21/2020, 0 10/19/2019, 01/05/2019, Additional history exists COVID-19 Vaccine (4 - Booster for Pfizer series) 02/18/2022 08/21/2021, 12/22/2020, 2020 DIABETES-HGBA1C EVERY 6 MONTHS 02/20/2022 08/23/2021, 03/09/2021, 12/05/2020, Additional history exists CKD GFR USE SMARTSET 12308 02/25/202208/28, 07/19/2021, 06/20/2021, Additional history exists CKD PHOS USE SMARTSET 03260 03/09/2022 03/09/2021, 0 03/22/2019 DIABETES-EYE EXAM 03/26/2022 03/26/2021, , 08/10/2019, Additional history exists CKD HGB USE SMARTSET 72988 08/28/202208/28, 08/28/2021, 08/23/2021, Additional history exists Dexa [...] Date/Time Associated Diagnosis Comments DIFFERENTIAL, AUTOMATED Routine 08/28/2021 1:06 PM EST Screening for deficiency anemia BNP (NT-PROBNP) Routine 08/28/2021 1:06 PM EST KULKARNI (dyspnea on exertion) Anemia, unspecified type BASIC METABOLIC PANEL Routine 08/28/2021 1:06 PM EST KULKARNI (dyspnea on exertion) Anemia, unspecified type IRON SCREEN, INCLUDING TIBC Routine 08/28/2021 1:06 PM EST KULKARNI (dyspnea on exertion) Anemia, unspecified type CBC WITH WBC DIFFERENTIAL Routine 08/28/2021 1:06 PM EST Screening for deficiency anemia CBC Routine 08/28/2021 1:06 PM EST Screening for deficiency anemia FERRITIN Routine 08/28/2021 1:06 PM EST KULKARNI (dyspnea on exertion) Anemia, unspecified type DIGOXIN LEVEL Routine 08/28/2021 1:06 PM EST Chronic systolic heart failure (HCC) Paroxysmal atrial fibrillation (HCC) documented in this encounter Results * DIFFERENTIAL, AUTOMATED (08/28/2021 1:06 PM EST) WBC 13.14(H) 4.00 - 10.80 K/uL [facility] Neutrophils % 66.4 40.0 - 75.0 % [facility] Lymphocytes % 20.0 18.0 - 42.0 % [facility] Monocytes % 8.8 1.0 - 11.0 % [facility] Eosinophils % 3.8 0.0 - 6.0 % [facility] Basophils % 0.5 0.0 - 2.0 % [facility] Immature Granulocyte % 0.5 0.0 - 2.0 % LABORATORY G Absolute Neutrophils 8.74(H) 1.80 - 7.70 K/uL [facility] Absolute Lymphocytes 2.63 1.00 - 4.80 K/ul [facility] Absolute Monocytes 1.15(H) 0.00 - 1.10 K/uL [facility] Absolute Eosinophils 0.50 0.00 - 0.70 K/uL [facility] Absolute Basophils 0.06 0.00 - 0.20 K/uL [facility] Absolute Immature Granulocytes 0.06 0.00 - 0.20 K/uL [facility] Specimen Blood - Venous blood specime n (specimen) Performing Organization Address City/State/[facility] Co de Phone Number [facility] [address] [place] [address] * CBC (08/28/2021 1:06 PM EST) WBC 13.14(H) 4.00 - 10.80 K/uL [facility] RBC 3.68(L) 3.85 - 5.15 M/uL [facility] HGB 10.2(L) 12.0 - 15.3 g/dL [facility] HCT 35.1(L) 36.0 - 45.2 % [facility] MCV 95.4 81.5 - 97.5 fL [facility] MCH 27.7 27.0 - 34.0 pg [facility] MCHC 29.1(L) 32.0 - 36.0 g/dL [facility] RDW 13.8 11.5 - 15.5 % [facility] MPV 10.9 6.6 - 11.1 fL [facility] Nucleated RBC 0 <=0 /100 WBCs [facility] Plt 357 140 - 400 K/uL [facility] Specimen Blood - Venous blood specime n (specimen) Performing Organization Address [facility] de Phone Number [facility] [address] [place] [address] * BNP (NT-PROBNP) (08/28/2021 1:06 PM EST) BNP (NT-PRO-BNP) 3,921(H) <300 pg/mL [facility] Specimen Blood - Venous blood specime n (specimen) Narrative [facility] - 08/29/2021 2:25 AM EST Exclude Heart Failure: <300 pg/mL Diagnose Heart Failure: Age <50 yr: >450 pg/mL 50-75 yr: >900 pg/mL >75 yr: >1800 pg/mL GFR is 30-59 mL/min: >1200 pg/mL or Age-adjusted values GFR <30 mL/min: do not use, not reliable Prognostic threshold: 1000 pg/mL Performing Organization Address [facility] de Phone Number LABORATORY [address] [address] * BASIC METABOLIC PANEL (08/28/2021 1:06 PM EST) BUN 12 6 - 20 mg/dL [facility] Creatinine 1.2(H) 0.5 - 1.0 mg/dL [facility] Estimated Glomerular Filtration Rate 43(L)Comment:If patient is , multiply estimated GFR by 1.159. >=60 mL/min LAB[facility] Sodium 142 135 - 146 mmol/L [facility] Potassium 4.6 3.5 - 5.1 mmol/L [facility] Chloride 99 98 - 107 mmol/L [facility] CO2 36(H) 22 - 32 mmol/L [facility] Anion Gap 7 7 - 15 mmol/L [facility] C Glucose 113 70 - 120 mg/dL [facility] C Calcium 9.2 8.4 - 10.2 mg/dL [facility] Specimen Blood - Venous blood specime n (specimen) Performing Organization Address [facility] de Phone Number [facility] [address] [place] [address] * FERRITIN (08/28/2021 1:06 PM EST) Ferritin 79Comment:Postmenopa usa l women have higher ferritin levels than pre-menopausal women. The above reference interval is based on pre-menopausal women. 13 - 150 ng/mL [facility] Specimen Blood - Venous blood specime n (specimen) Performing Organization Address [facility] de Phone Number [facility] [address] [place] [address] * IRON SCREEN, INCLUDING TIBC (08/28/2021 1:06 PM EST) Iron 33 33 - 151 ug/dL [facility] Iron Binding Capacity 245(L) 250 - 425 ug/dL [facility] Transferrin Saturation Percent 13(L) 15 - 55 % [facility] Specimen Blood - Venous blood specime n (specimen) Performing Organization Address [facility] de Phone Number [facility] [address] [place] [address] * DIGOXIN LEVEL (08/28/2021 1:06 PM EST) Digoxin Level <0.4(L) 0.5 - 2.0 ng/mL [facility] Specimen Blood - Venous blood specime n (specimen) Performing Organization Address [facility] de Phone Number [facility] [address] [place] [address] documented in this encounter Visit Diagnoses Diagnosis Chronic systolic heart failure (HCC) Chronic systolic heart failure Paroxysmal atrial fibrillation (HCC) Atrial fibrillation KULKARNI (dyspnea on exertion) Other dyspnea and respiratory abnormality Anemia, unspecified type Screening for deficiency anemia Screening for other and unspecified deficiency anemia documented in this encounter Advance Directives Documents on File Type Date Recorded Patient 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
--- OUTSIDE RECORDS SUMMARY | 2023-06-18 03:02 | External Medical Summary ---
Author Name Unknown Address Unknown Organization [id number]:[facility]ATORY C - [address] [place] [address] Laboratory Report Ordering Provider Test Date Status BUZZ VO 08/28/2021 13:06:17 Final Observation Date Value Abnormality Reference (Units ) Status BNP, Pro-hormone 08/28/2021 13:06:17 3921 Above high no rmal <300 (pg/mL) Final Performing Location [facility] - [address] [place] [address]
--- OUTSIDE RECORDS SUMMARY | 2023-06-18 03:02 | External Medical Summary ---
Author Name Unknown Address Unknown Organization [id number]:[facility] [address] [place] [address] Laboratory Report Ordering Provider Test Date Status BUZZ VO 08/28/2021 13:06:17 Final Observation Date Value Abnormality Reference (Units ) Status Iron 08/28/2021 13:06:17 33 33-151 (ug/dL) Final Iron-binding capacity 08/28/2021 13:06:17 245 Below low normal 250-425 (ug/dL) Final Transferrin Sat % 08/28/2021 13:06:17 13 Below low normal 15-55 (%) Final Performing Location [facility] C - [address] [place] [address]
--- OUTSIDE RECORDS SUMMARY | 2023-06-18 03:02 | External Medical Summary | Summary of Care ---
Author Name Unknown Organization [facility] Address [facility] [place] [address] Care Team Providers Care Bevel Face Stoner And Polisher Name Role Phone Marcela Pinto MD Primary Care Provider + Reason for Visit * Reason Comments Outpatient Testing Encounter Details Date Type Department Care Team Description 08/28/2021 Laboratory Laboratory [address] [place] [phone] [place] [phone] Chronic systolic heart failure (HCC); Paroxysmal atrial fibrillation (HCC); KULKARNI (dyspnea on exertion); Anemia, unspecified type; Screening for deficiency anemia Allergies Active Allergy Reactions Severity Noted Date Comments Valsartan 07/10/2010 Enalapril 05/21/2006 Escitalopram Oxalate Nausea/vomiting 10/11/2009 Nauseated Iodinated Diagnostic Agents Nausea/vomiting 05/2010 IV Contrast Iodine Hives 12/18/2009 IV Contrast Metoprolol Tartrate 11/18/2006 Made pulse low [place] Oil-Black Currant-Vit E 07/10/2010 Verapamil 03/21/2004 Bupropion [...] Hypoxemia 10/08/2011 10/30/2015 Genetic Sleep Disorder Research Other*[id number] 07/25/2011 05/15/2016 Diverticulitis of colon 07/25/2011 01/06/20 [...] Specialty Care Team Description 08/31/2021 Laboratory Laboratory [address] [place] [address] 09/03/2021 Cardiac Studies Cardiac Studies 11/15/2021 Office Visit Internal Medicine Marcela Pinto MD [address] [place] [address] 12/27/2021 Office Visit Cardiology Hammad Lopez, [address] [facility] [place] [address] Pending Results Name Type Priority Associated Diagnoses Date /Time DIGOXIN LEVEL Lab Routine Chronic systolic heart failure (HCC) Paroxysmal atrial fibrillation (HCC) 08/28/2021 1:06 PM EST IRON SCREEN, INCLUDING TIBC Lab Routine KULKARNI (dyspnea on exertion) Anemia, unspecified type 08/28/2021 1:06 PM EST FERRITIN Lab Routine KULKARNI (dyspnea on exertion) Anemia, unspecified type 08/28/2021 1:06 PM EST BASIC METABOLIC PANEL Lab Routine KULKARNI (dyspnea on exertion) Anemia, unspecified type 08/28/2021 1:06 PM EST BNP (NT-PROBNP) Lab Routine KULKARNI (dyspnea on exertion) Anemia, unspecified type 08/28/2021 1:06 PM EST CBC WITH WBC DIFFERENTIAL Lab Routine Screening for deficiency anemia 08/28/2021 1:06 PM EST CBC Lab Routine Screening for deficiency anemia 08/28/2021 1:06 PM EST DIFFERENTIAL, AUTOMATED Lab Routine Screening for deficiency anemia 08/28/2021 1:06 PM EST Health Maintenance Due Date Last Done Comments Zoster Vaccines (2 of 3) 08/31/2012 07/06/2012 DIABETES-FOOT EXAM 12/21/2021 12/21/2020, 0 10/19/2019, 01/05/2019, Additional history exists CKD GFR USE SMARTSET 12186 01/17/202207/19, 06/20/2021, 06/12/2021, Additional history exists COVID-19 Vaccine (4 - Booster for Pfizer series) 02/18/2022 08/21/2021, 12/22/2020, 2020 DIABETES-HGBA1C EVERY 6 MONTHS 02/20/2022 08/23/2021, 03/09/2021, 12/05/2020, Additional history exists CKD PHOS USE SMARTSET 04848 03/09/2022 03/09/2021, 0 03/22/2019 DIABETES-EYE EXAM 03/26/2022 03/26/2021, , 08/10/2019, Additional history exists CKD HGB USE SMARTSET 41268 08/23/202208/23, 05/28/2021, 05/21/2021, Additional history exists Dexa [...] Documents on File Type Date Recorded 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
--- OUTSIDE RECORDS SUMMARY | 2023-06-18 03:02 | External Medical Summary ---
Author Name Unknown Address Unknown Organization K01:[facility]ATORY [facility] [place] - [address] [place] [address] Laboratory Report Ordering Provider Test Date Status BUZZ VO 08/28/2021 13:06:17 Final Observation Date Value Abnormality Reference (Units ) Status BUN 08/28/2021 13:06:17 12 6-20 (mg/dL) Final Creatinine 08/28/2021 13:06:17 1.2 Above high normal 0.5-1.0 (mg/dL) Final Glomerular filtration rate/1.73 sq M.predicted [Volume Rate/Area] in Serum, Plasma or Blood by Creatinine-based formula (CKD-EPI) 08/28/2021 13:06:17 43 Below low normal >=60 (mL/min) Final Performing Location [facility] [place] - [address] [place] [address]
--- OUTSIDE RECORDS SUMMARY | 2023-06-18 03:02 | External Medical Summary ---
Author Name Unknown Address Unknown Organization [id number][facility] [address] [place] [address] Laboratory Report Ordering Provider Test Date Status BUZZ VO 08/23/2021 14:34:15 Final Observation Date Value Abnormality Reference (Units ) Status WBC, Total 08/23/2021 14:34:15 14.37 Above high normal 4 .00-10.80 (K/uL) Final RBC 08/23/2021 14:34:15 3.52 Below low normal 3.8 5-5.15 (M/uL) Final Hemoglobin 08/23/2021 14:34:15 9.9 Below low normal 12 .0-15.3 (g/dL) Final HCT 08/23/2021 14:34:15 33.7 Below low normal 36. 0-45.2 (%) Final MCV 08/23/2021 14:34:15 95.7 81.5-97.5 (fL) Final MCH 08/23/2021 14:34:15 28.1 27.0-34.0 (pg) Final MCHC 08/23/2021 14:34:15 29.4 Below low normal 32. 0-36.0 (g/dL) Final RDW 08/23/2021 14:34:15 13.9 11.5-15.5 (%) Final Platelets 08/23/2021 14:34:15 353 140-400 (K /uL) Final MPV 08/23/2021 14:34:15 9.6 6.6-11.1 ( fL) Final Performing Location [facility] - [address] [place] [address]
--- OUTSIDE RECORDS SUMMARY | 2023-06-18 03:02 | External Medical Summary | Summary of Care ---
Author Name Unknown Organization [place] [address] Care Team Providers Care Clothing Examiner Name Role Phone Marcela Pinto MD Primary Care Provider + Reason for Visit * Reason Onset Date Comments case management 06/15/2021 Medication Question 06/15/2021 Encounter Details Date Type Department Care Team Description 06/15/2021 Shade Maker Telephone Family Practice [facility] [address] [facility] [place] [address] Cici Gama, BIJAL [address] [place] [address] case management; Medication Question Allergies Active Allergy Reactions Severity Noted Date Comments Valsartan 07/10/2010 Enalapril 05/21/2006 Escitalopram Oxalate Nausea/vomiting 10/11/2009 Nauseated Iodinated Diagnostic Agents Nausea/vomiting 05/2010 IV Contrast Iodine Hives 12/18/2009 IV Contrast Metoprolol Tartrate 11/18/2006 Made pulse low [place] Oil-Black Currant-Vit E 07/10/2010 Verapamil 03/21/2004 Bupropion [...] mouth daily. 30 Tab 3 1 Active Furosemide 40 MG Oral Tablet (Lasix)Indications :Chronic systolic heart failure (HCC),Paroxysmal atrial fibrillation (HCC),Chronic 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),NICM (nonischemic cardiomyopathy) (HCC),Chronic atrial fibrillation (HCC),Hospital discharge follow-up,Presence of Watchman left atrial appendage closure device 40 mg in AM, 40 mg in PM 270 Tab 1 1 Active Nebulizers (NEBULIZER COMPRESSOR) MISC Inhale via nebulizer. Use as directed. Please give tubing to use with it. 1 Each 1 9 07/12/20 21 Discontinued(Mn dication List Clean Up) glimepiride (AMARYL) 4 MG TabletIndications: Type 2 diabetes mellitus with hemoglobin A1c goal of less than 7.5% (HCC) Take 2 mg by mouth daily before breakfast. 90 Tab 3 9 08/23/20 21 Discontinued(Dilip palacios preference/disc ontinuation) zoster vac recomb adjuvanted (SHINGRIX) 50 MCG/0.5ML injectionIndicatio ns:Need for shingles vaccine Inject 0.5 mL into a large muscle now and repeat dose in 60 to 180 days. Please fax date this was given to our office. 1 Each 1 0 07/12/20 21 Discontinued(Me dication List Clean Up) Combivent Respimat 20-100 MCG/ACT Inhalation Aerosol Solution (Ipratropium-Albut reg)Indications:A sthma with severity to be determined,COPD, moderate (HCC) TAKE 1 PUFF BY MOUTH 4 TIMES A DAY 12 g 3 1 08/08/20 21 Discontinued(Re fill) Spironolactone 25 MG Oral Tablet (Aldactone)Indicat ions:Chronic systolic heart failure (HCC) Take 0.5 Tabs by mouth daily. 30 Tab 3 1 07/12/20 21 Discontinued Promethazine HCl 25 MG Oral Tablet (Phenergan)Indicat ions:Generalized osteoarthritis TAKE 1 TABLET BY MOUTH EVERY 6 HOURS NEEDED FOR NAUSEA 60 Tab 0 1 07/18/20 21 Discontinued Atorvastatin Calcium 40 MG Oral Tablet (Lipitor)Indicatio ns:Hyperlipidemia with target LDL less than 100 TAKE 1 TABLET BY MOUTH EVERY DAY 90 Tab 1 1 06/26/20 21 Discontinued(Re fill) Fludrocortisone Acetate 0.1 MG Oral Tablet (Florinef) TAKE 1 TABLET BY MOUTH EVERY DAY 30 Tab 1 1 07/12/20 21 Discontinued(Dilip palacios preference/disc ontinuation) Glimepiride 2 MG Oral Tablet (Amaryl) TAKE 1 TABLET BY MOUTH EVERY DAY WITH BREAKFAST 30 Tab 0 1 06/20/20 21 Discontinued(Me dication List Clean Up) HYDROcodone-Acetam inophen 5-325 MG Oral TabletIndications: Generalized osteoarthritis Take 1 Tab by mouth every 6 hours as needed for Pain, Mild. 120 Tab 0 1 07/16/20 21 Discontinued(Re fill) Metoprolol Succinate ER 25 MG Oral Tablet Extended Release 24 Hour (toPROL XL)Indications:Chr onic systolic heart failure (HCC),Paroxysmal atrial fibrillation (HCC),Chronic 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),NICM (nonischemic cardiomyopathy) (HCC),Chronic atrial fibrillation (HCC),Hospital discharge follow-up,Presence of Watchman left atrial appendage closure device Take 0.5 Tabs by mouth 2 times a day. 30 Tab 5 1 06/26/20 21 Discontinued(Re fill) predniSONE 10 MG Oral Tablet (Deltasone) Take by mouth. Taper as directed. Take 4 tabs daily x 4 days, then take 3 tabs daily x 3 days, then take 2 tabs daily x 2 days, then take 1 tab daily x 2 days, then stop. 0 1 06/22/20 21 documented as of this encounter (statuses as [...] Hypoxemia 10/08/2011 10/30/2015 Genetic Sleep Disorder Research Other*[id number] 07/25/2011 05/15/2016 Diverticulitis of colon 07/25/2011 01/06/20 [...] LNP-s, No Pre serve, 2-Dose Series (Pfizer) 12/22/2020,2020 Hepatitis B, 20+ yrs 10/01/2017,04/21/2017,03/20 Pneumococcal [...] * Telephone Encounter - NIECY Holder - 06/17/2021 2:18 PM EDT How is the patient feeling on the increased dose of Lasix? Will reassess following repeat BMP. NIECY Gonzalez * Telephone Encounter - Cici Gama RN - 06/15/2021 12:54 PM EDT Patient's weight has remained steady the last days, at 254 lbs. Did you want patient to have a DTP in place? (diuretic titration protocol) Currently taking Lasix 40 mg twice daily. Please advise..... documented in this encounter Plan of Treatment Upcoming Encounters Date Type Specialty Care Team Description 08/31/2021 Laboratory Laboratory [place], [address] [place] [address] 09/03/2021 Cardiac Studies Cardiac Studies 11/15/2021 Office Visit Internal Medicine Marcela Pinto MD [address] [place] [address] 12/27/2021 Office Visit Cardiology Hammad Lopez, DO [address] [facility] [place] [address] Health Maintenance Due Date Last Done Comments Zoster Vaccines (2 of 3) 08/31/2012 07/06/2012 DIABETES-FOOT EXAM 12/21/2021 12/21/2020, 0 10/19/2019, 01/05/2019, Additional history exists CKD GFR USE SMARTSET 26608 01/17/202207/19, 06/20/2021, 06/12/2021, Additional history exists COVID-19 Vaccine (4 - Booster for Pfizer series) 02/18/2022 08/21/2021, 12/22/2020, 2020 DIABETES-HGBA1C EVERY 6 MONTHS 02/20/2022 08/23/2021, 03/09/2021, 12/05/2020, Additional history exists CKD PHOS USE SMARTSET 96498 03/09/2022 03/09/2021, 0 03/22/2019 DIABETES-EYE EXAM 03/26/2022 03/26/2021, , 08/10/2019, Additional history exists CKD HGB USE SMARTSET 36256 08/23/202208/23, 05/28/2021, 05/21/2021, Additional history exists Dexa [...] Documents on File Type Date Recorded 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
--- OUTSIDE RECORDS SUMMARY | 2023-06-18 03:02 | External Medical Summary ---
Author Name Unknown Address Unknown Organization K01:LABORATORY [facility] [place] - [address] [facility] [address] Laboratory Report Ordering Provider Test Date Status ALOK MORGAN 08/23/2021 14:34:17 Final Observation Date Value Abnormality Reference (Units ) Status HbA1C 08/23/2021 14:34:17 6.8 Above high normal 4. 0-5.6 (%) Final Performing Location LABORATORY C - [address] [facility] [address]
--- OUTSIDE RECORDS SUMMARY | 2023-06-18 03:02 | External Medical Summary ---
Author Name Unknown Address Unknown Organization K01:[facility] [place] [address] [place] [facility] [place] [address] Laboratory Report Ordering Provider Test Date Status JOSE A JOHNSON 08/28/2021 13:06:17 Final Observation Date Value Abnormality Reference (Units ) Status SYNC LEUKOCYTES IN BLOOD BY AUTOMATED COUNT 08/28/2021 13:06:17 13.14 Above high normal 4.00-10.80 (K/uL) Final Segs 08/28/2021 13:06:17 66.4 40.0-75.0 (%) Final Lymphs % 08/28/2021 13:06:17 20.0 18.0-42.0 (%) Final Monos 08/28/2021 13:06:17 8.8 1.0-11.0 (%) Final Eosinophils 08/28/2021 13:06:17 3.8 0.0-6.0 (%) Final Basos 08/28/2021 13:06:17 0.5 0.0-2.0 (%) Final Immature Granulocyte, Percent 08/28/2021 13:06:17 0.5 0.0-2.0 (%) Final Absolute Segs 08/28/2021 13:06:17 8.74 Above high normal 1.80-7.70 (K/uL) Final Lymphs, absolute 08/28/2021 13:06:17 2.63 1.00-4.80 (K/ul) Final Monos, Abs 08/28/2021 13:06:17 1.15 Above high normal 0.00-1.10 (K/uL) Final Eos, Abs 08/28/2021 13:06:17 0.50 0.00-0.70 (K/uL) Final Basos, Abs 08/28/2021 13:06:17 0.06 0.00-0.20 (K/uL) Final Immature Granulocytes, Number 08/28/2021 13:06:17 0.06 0.00-0.20 (K/uL) Final Performing Location [facility] [place] [facility] [place] [address]
--- OUTSIDE RECORDS SUMMARY | 2023-06-18 03:02 | External Medical Summary ---
Author Name Unknown Address Unknown Organization K01:LABORATORY [facility] [place] - [address] [facility] [address] Laboratory Report Ordering Provider Test Date Status KIMBERLY LITTLEJOHN 08/28/2021 13:06:17 Final Observation Date Value Abnormality Reference (Units ) Status Digoxin 08/28/2021 13:06:17 <0.4 Below low normal 0.5 -2.0 (ng/mL) Final Performing Location LABORATORY C - [address] [facility] [address]
--- OUTSIDE RECORDS SUMMARY | 2023-06-18 03:02 | External Medical Summary ---
Author Name Unknown Address Unknown Organization K01:LABORATORY [place] [address] [facility] [address] Laboratory Report Ordering Provider Test Date Status JOSE A JOHNSON 08/28/2021 13:06:17 Final Observation Date Value Abnormality Reference (Units ) Status WBC, Total 08/28/2021 13:06:17 13.14 Above high normal 4.00-10.80 (K/uL) Final RBC 08/28/2021 13:06:17 3.68 Below low normal 3.85-5.15 (M/uL) Final Hemoglobin 08/28/2021 13:06:17 10.2 Below low normal 12.0-15.3 (g/dL) Final HCT 08/28/2021 13:06:17 35.1 Below low normal 36.0-45.2 (%) Final MCV 08/28/2021 13:06:17 95.4 81.5-97.5 (fL) Final MCH 08/28/2021 13:06:17 27.7 27.0-34.0 (pg) Final MCHC 08/28/2021 13:06:17 29.1 Below low normal 32.0-36.0 (g/dL) Final RDW 08/28/2021 13:06:17 13.8 11.5-15.5 (%) Final MPV 08/28/2021 13:06:17 10.9 6.6-11.1 (fL) Final Nucleated erythrocytes/100 leukocytes [Ratio] in Blood by Automated count 08/28/2021 13:06:17 0 <=0 (/100 WBCs) Final Platelets 08/28/2021 13:06:17 357 140-400 (K/uL) Final Performing Location LABORATORY [place] [address] [facility] [address]
--- OUTSIDE RECORDS SUMMARY | 2023-06-18 03:02 | External Medical Summary | Summary of Care ---
Author Name Unknown Organization [place] [address] Care Team Providers Care Jump Roll Operator Name Role Phone Marcela Pinto MD Primary Care Provider + Reason for Referral * Precert (Within 10 days (routine)) - Authorized Specialty Diagnoses / Procedures Referred By Contac t Referred To Contact Cardiac Studies Diagnoses Chronic 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) NICM (nonischemic cardiomyopathy) (HCC) Permanent atrial fibrillation (HCC) Procedures ECHO, COMPLETE (2D), TRANS-THORACIC Dulce Merino CRNP [address] [facility] [place] [address] Referral ID Status Reason Start Date Expiration Date V isits Requested Visits Authorized [id number] Authorized Precert 08/23/2021 1 1 Reason for Visit * Reason Comments Follow Up Encounter Details Date Type Department Care Team Description 08/23/2021 Office Visit Cardiology, [facility] [address] [place] [address] Dulce Merino CRNP [address] [place] [address] Chronic 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)*; NICM (nonischemic cardiomyopathy) (HCC); Permanent atrial fibrillation (HCC); Chronic obstructive pulmonary disease, unspecified COPD type (HCC) Allergies Active Allergy Reactions Severity Noted Date Comments Valsartan 07/10/2010 Enalapril 05/21/2006 Escitalopram Oxalate Nausea/vomiting 10/11/2009 Nauseated Iodinated Diagnostic Agents Nausea/vomiting 05/2010 IV Contrast Iodine Hives 12/18/2009 IV Contrast Metoprolol Tartrate 11/18/2006 Made pulse low [place] Oil-Black Currant-Vit E 07/10/2010 Verapamil 03/21/2004 Bupropion Hcl 10/30/2009 Makes pt sick in the stomach documented as of this encounter (statuses as of 08/23/2021) Medications Medication Sig Dispensed Refills Start Date [...] A DAY 180 Cap 1 04/03/2021 Active LendsquareSens N Voice System Device Use as directed. 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 120 Tab 0 07/18/2021 Active Ipratropium-Albuter ol 20-100 MCG/ACT Inhalation [...] 180 days 1 Each 1 08/09/2021 Active glimepiride (AMARYL) 4 MG TabletIndications:T ype 2 diabetes mellitus with hemoglobin A1c goal of less than 7.5% (HCC) Take 2 mg by mouth daily before breakfast. 90 Tab 3 01/05/2019 1 Discontinue d(Patient preference/ discontinua tion) documented as of this encounter (statuses as of 08/23/2021) Active Problems Problem Noted Date Subclinical hyperthyroidism [...] as of this encounter (statuses as of 08/23/2021) Resolved Problems Problem Noted Date Resolved Date [...] Hypoxemia 10/08/2011 10/30/2015 Genetic Sleep Disorder Research Other*[id number] 07/25/2011 05/15/2016 Diverticulitis of colon 07/25/2011 01/06/20 [...] as of this encounter (statuses as of 08/23/2021) Immunizations Name Administration Dates Next Due COVID-19 [...] Sign Reading Time Taken Comments Blood Pressure 102/62 08/23/2021 1:35 PM EST palp/doppler Pulse 76 08/23/2021 1:35 PM EST Temperature 36.3 C (97.3 F) 08/23/2021 1 :35 PM EST Respiratory Rate 14 08/23/2021 1:35 PM EST Oxygen Saturation 94% 08/23/2021 1:3 5 PM EST Inhaled Oxygen Concentration - - Weight 116.5 kg (256 lb 12 oz) 08/23/20 21 1:35 PM EST Height - - Body Mass Index 42.73 08/20/2021 2:10 PM EST documented in this encounter Progress Notes * NIECY Holder - 08/23/2021 1:30 PM EST Cardiology Outpatient Visit 08/23/[address] Lopez Past medical history: 1. Chronic heart failure with reduced ejection fraction, EF 40-45% 02/2021, NYHA class 3 2. Nonischemic cardiomyopathy, cardiac catheterization performed 11/2020 in [place] demonstrated mild nonobstructive CAD 3. Permanent atrial fibrillation, [id number] score of 5 (age 1, female, CHF, hypertension), no ACs/p watchman implant 11/2019 4. Severe oxygen-dependent COPD with chronic hypercapnia HPI 80-year-old female presenting to the cardiology office today in follow-up for CHF. Was last seen bythe undersigned approximately 3 months ago. At this appointment she was feeling improved and offersno acute concerns. Patient was dealing with some lower blood pressure readings and spironolactone was reduced to 12.5 mg every Friday, Friday, Friday- kidney function remains stable. Was seen by PCP on 08/20 without complaint. Today the patient presents feeling generally well. Denies any exertional chest pain. Notes a slightincrease in shortness of breath since the weather changed. Utilizing her nebulizer 2-4 times per day with some relief. She has no difficulty when she is at rest or when she is lying down in bed at night. Denies any orthopnea. Only uses 1 pillow. Able to lay flat without the head of the bed elevated. Notes that housework does cause her significant dyspnea but she does not believe that has been anyworse recently. Able to walk to the bathroom in her home without difficulty. Continues to wear oxygen. No palpitations, dizziness, or syncope. No lower extremity edema or abdominal bloating. Weights have been stable. No fever, chills, cough, hematochezia, melena, or hemoptysis. Little of her symptoms are due to deconditioning. Notes that she lives in extremely sedentary lifestyle and she recentlystarted exercising with her foot peddler. Follows with Pulmonary, Dr. Real, [facility]- plans on [facility] on 09/08. She states she is compliant with all medications, and offers no side effects. Of note, she has had all 3 Pfizer vaccines for COVID. Her 3rd COVID dose was given on Friday. She did have some mild symptoms of achiness. Got her Flu vaccine approximately 1 month ago. Current Outpatient Medications Medication Sig Dispense Refill [...] effect 1 stool per day. . (Patient taking differently: Take 17 g by mouth daily as needed for Constipation. One cap full in juice, to effect 1 stool per day. .) 2 Bottle 3 Multiple Vitamins-Minerals (ONE DAILY MULTIVITAMIN WOMEN) TABS one pill each day [facility] SENNA 8.6 MG Tablet TAKE 2 TABLETS BY MOUTH EVERY EVENING FOR 10 DAYS NEEDED FOR CONSTIPATION 0 docusate sodium (COLACE) 100 MG Capsule Take 1 Cap by mouth daily. 90 Cap 0 ferrous sulfate (FEOSOL) 325 (65 FE) MG Tablet One tablet every day 60 Tab 11 albuterol sulfate (PROVENTIL) [...] (Prinivil) Take 2.5 mg by mouth daily. Dicyclomine HCl 20 MG Oral Tablet (Bentyl) TAKE 1 TABLET BY MOUTH EVERY DAY 90 Tab 2 Omeprazole 20 MG Oral Capsule Delayed Release (PriLOSEC) TAKE 1 CAPSULE BY MOUTH TWICE A DAY 180 Cap 1 CareSens N Voice System Device Use as directed. Tests three times daily/E11.9 CareSens N Glucose Test In Vitro Strip (Glucose Blood) Test as directed. Tests three times daily Klor-Con M20 20 MEQ Oral Tablet Extended Release (Potassium Chloride Annalisa ER) TAKE 1 TABLET BY MOUTH EVERY DAY 90 Tab 1 Aspirin 81 MG Oral Tablet Delayed Release Take 81 mg by mouth daily. Advair HFA 230-21 MCG/ACT Inhalation Aerosol (fluticasone-Salmeterol) Inhale 2 Puffs by mouth 2times a day. Zafirlukast 20 MG Oral Tablet (Accolate) TAKE 1 TABLET BY MOUTH EVERY DAY 90 Tab 3 methIMAzole 10 MG Oral Tablet (Tapazole) Take 1 Tab by mouth daily. 30 Tab 3 Furosemide 40 MG Oral Tablet (Lasix) 40 mg in AM, 40 mg in PM 270 Tab 1 Atorvastatin Calcium 80 MG Oral Tablet (Lipitor) Take 1 Tab by mouth daily. 90 Tab 3 Metoprolol Succinate ER 25 MG Oral Tablet Extended Release 24 Hour (toPROL XL) Take 1 tab in the morning and 1/2 tab in the evening. 135 Tab 3 Spironolactone 25 MG Oral Tablet [...] HOURS NEEDED FOR NAUSEA 60 Tab 2 HYDROcodone-Acetaminophen 5-325 MG Oral Tablet Take 1 Tab by mouth every 6 hours as needed for Pain, Mild. 120 Tab 0 Ipratropium-Albuterol 20-100 MCG/ACT Inhalation Aerosol Solution (Combivent Respimat) TAKE 1 PUFF BY MOUTH 4 TIMES A DAY 12 g 0 doxycycline 100 MG Tablet Take 100 mg by mouth 2 times a day. RESCUE KIT: Take for Colds. Zoster Vac [...] COLONOSCOPY, DIAGNOSTIC (RECTUM) 05/29/2016 poor prep, diverticulosis/inpt [facility] COLONOSCOPY, DIAGNOSTIC (RECTUM) 06/05/2017 diverticulosis, repeat 3 yrs/[facility] COLONOSCOPY, DIAGNOSTIC (RECTUM) 02/28/2018 adenomatous polyps, diverticulosis, repeat 3 yrs / [facility] COLONOSCOPY, DIAGNOSTIC (RECTUM) 05/08/2020 inflammatory tissue on bx, diverticulosis / [facility] COLONOSCOPY, W/BIOPSY 03/20/2012 hyperplastic polyps rpt 3 years. EGD, FLEXIBLE, DIAGNOSTIC 04/29/2014 normal/inpt [facility] EGD, FLEXIBLE, DIAGNOSTIC 05/29/2016 fundic submucosal mass/[facility] EGD, FLEXIBLE, DIAGNOSTIC 05/08/2020 normal / [facility] EGD, FLEXIBLE,W/ENDOSCOPIC US 11/08/2016 inflammatory changes, stomach lesion, repeat EUS 1.5 yrs/[facility] EGD, FLEXIBLE,W/ENDOSCOPIC US 05/01/2018 stromal cell (smooth muscle) neoplasm, CBD dilation, repeat 2 yrs (needs OV prior)/[facility] EGD, FLEXIBLE,W/ENDOSCOPIC US 09/01/2020 leiomyoma / [facility] INCISIONAL HERNIA REPAIR, LAP, REDUCIBLE 09/29/2012 Repair of incarcerated supraumbilical (incisional) hernia with [facility] mesh 09/29/12 LIGATE/CUT OVIDUCT(S) REMOVAL OF TONSILS, AGE 12+ age 11 REMOVE GALLBLADDER 1960 SIGMOIDOSCOPY, DIAGNOSTIC 04/29/2014 [facility], REMOVE FOREIGN BODY [...] IV Contrast Metoprolol Tartrate Made pulse low [place] Oil-Black Currant-Vit E Verapamil Wellbutrin [Bupropion Hcl] Makes pt sick in the stomach Review of Systems: See HPI for pertinent positives. All others negative, other than those noted in HPI. Physical Exam BP 102/62 (BP Site: Left Arm, BP Position: Sitting) Comment: palp/doppler Comment (BP Site): forearm | Pulse 76 | Temp 36.3 C (97.3 F) | Resp 14 | Wt 116.5 kg (256 lb 12 oz) | SpO2 94% | BMI 42.73 kg/m | BSA 2.31 m General: No acute distress. A+Ox3. HEENT: Normocephalic. Atraumatic. Conjunctiva and sclera clear. NECK: No carotid bruits. No JVD. Carotid upstrokes are brisk. Heart: Irregular rhythm, regular rate. Distant heart sounds. Lungs: Diminished lung sounds bilaterally, no wheezing rhonchi or rales. Abdomen: Normal bowel sounds. Soft. Obese. Extremities: No edema No clubbing or cyanosis. Pulses: radial=2/4, posterior tibial=2/4, dorsalis pedis = 2/4. NEURO: No focal deficits. PSYCH: Normal. Lab data/imaging study review: 2D echo report summary [facility] 02/26/21: LV systolic function is mildly reduced. Ejection fraction 40-45% Mild concentric left ventricular hypertrophy. Mild global hypokinesis. Moderate aortic valve sclerosis without stenosis. Mild mitral regurgitation. Impression/Plan: 1. Heart failure with reduced EF, NYHA class 3 EF 40-45% 02/2021. Appears euvolemic on exam. Weight is stable. No orthopnea or signs of fluid retention. No lower extremity edema. Slightly worsening shortness of breath has been using her nebulizer more frequently. Does have severe COPD, oxygen dependent- possible exacerbation. SpO2 averaging between 92 and 94% 1. Continue furosemide to 40 mg twice daily 2. Continue spironolactone to 12.5 mg every Friday, Friday, Friday 3. Continue metoprolol succinate 25 mg in the morning and 12.5 mg in the evening 4. Continue lisinopril 2.5 mg daily 5. Repeat resting echocardiogram to reassess LV systolic function. 6. Stat chest x-ray today to ensure no acute pulmonary processes or pulmonary effusions- will cc PCP regarding possible COPD exacerbation 7. Continue all pulmonary medicines and regular use of nebs. 2. Nonischemic cardiomyopathy Cardiac catheterization performed 11/2020 in [place] demonstrated mild nonobstructive CAD 3. Permanent Atrial Fibrillation [id number] score of 5 (age 1, female, CHF, [...] or concerns. ER with all emergencies advised. Follow-up: Return in about 3 months (around 11/23/2021). | Check-out note: Echo. Labs and chest xraytoday. With TK in about 3 months I spent a total of 40 minutes on the date of service in preparation, delivery, and documentation ofthe care provided to Nina Harrington excluding any time spent in the performance of separately billedservices. NIECY Shepard [facility], Department of Cardiology This chart was completed in part utilizing [employer] Speech Voice Recognition Software. Grammatical errors, random [...] documented in this encounter Nursing Notes * Vargas Shabazz RN - 08/23/2021 1:44 PM EST Pt being seen in cardiology clinic today for routine 6 week follow up appt. Pt denies chest pain, SOB, palpitations, swelling and lightheadedness BP (!) 102/0 (BP Site: Left Arm, BP Position: Sitting, BP Cuff Size: Regular) Comment: palp/dopplerComment (BP Site): forearm | Pulse 76 | Temp 36.3 C (97.3 F) | Resp 14 | Wt 116.5 kg (256 lb 12oz) | BMI 42.73 kg/m | BSA 2.31 m Wt Readings from Last 3 Encounters: 08/23/21 116.5 kg (256 lb 12 oz) 08/20/21 116.8 kg (257 lb 6.4 oz) 08/08/21 113.9 kg (251 lb) Patient was instructed to: - not get up on the exam table until directed and assisted by their provider - to remain seated in the chair/ wheelchair/ exam table for fall prevention and safety reasons. - Wait to step down off exam table until personnel and present to assist them Patient voiced full comprehension of instructions. Sam Shabazz RN documented in this encounter Plan of Treatment Upcoming Encounters Date Type Specialty Care Team Description 08/23/2021 Laboratory Laboratory [facility] [address] [place] [id number] Type 2 diabetes mellitus with hemoglobin A1c goal of less than 7.5% (HCC); Chronic 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); NICM (nonischemic cardiomyopathy) ([facility]); Permanent atrial fibrillation (HCC); Chronic obstructive pulmonary disease, unspecified COPD type (HCC) 09/03/2021 Cardiac Studies Cardiac Studies 11/15/2021 Office Visit Internal Medicine Marcela Pinto MD [address] [place] [address] 12/27/2021 Office Visit Cardiology Hammad Lopez DO [address] [place] [address] Pending Results Name Type Priority Associated Diagnoses Date /Time CBC Lab Routine Chronic 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) NICM (nonischemic cardiomyopathy) (HCC) Permanent atrial fibrillation (HCC) Chronic obstructive pulmonary disease, unspecified COPD type (HCC) 08/23/2021 2:34 PM EST XR CHEST 2 VIEWS Medical Imaging STAT Chronic 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) NICM (nonischemic cardiomyopathy) (HCC) Permanent atrial fibrillation (HCC) Chronic obstructive pulmonary disease, unspecified COPD type (HCC) 08/23/2021 2:12 PM EST Scheduled Orders Name Type Priority Associated Diagnoses Orde r Schedule ECHO, COMPLETE (2D), TRANS-THORACIC Echocardiology Routine Chronic 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) NICM (nonischemic cardiomyopathy) (HCC) Permanent atrial fibrillation (HCC) Expected: 08/23/2021, Expires: 08/23/2022 CBC Lab Routine Chronic 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) NICM (nonischemic cardiomyopathy) (HCC) Permanent atrial fibrillation (HCC) Chronic obstructive pulmonary disease, unspecified COPD type (HCC) Expected: 08/23/2021, Expires: 08/23/2022 XR CHEST 2 VIEWS Medical Imaging STAT Chronic 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) NICM (nonischemic cardiomyopathy) (HCC) Permanent atrial fibrillation (HCC) Chronic obstructive pulmonary disease, unspecified COPD type (HCC) Expected: 08/23/2021, Expires: 08/23/2022 Health Maintenance Due Date Last Done Comments Zoster Vaccines (2 of 3) 08/31/2012 07/06/2012 DIABETES-HGBA1C EVERY 6 MONTHS 09/09/2021 03/09/2021, 12/05/2020, 08/10/2020, Additional history exists DIABETES-FOOT EXAM 12/21/2021 12/21/2020, 0 10/19/2019, 01/05/2019, Additional history exists CKD GFR USE SMARTSET 23463 01/17/202207/19, 06/20/2021, 06/12/2021, Additional history exists COVID-19 Vaccine (4 - Booster for Pfizer series) 02/18/2022 08/21/2021, 12/22/2020, 2020 CKD PHOS USE SMARTSET 93863 03/09/2022 03/09/2021, 0 03/22/2019 DIABETES-EYE EXAM 03/26/2022 03/26/2021, , 08/10/2019, Additional history exists CKD HGB USE SMARTSET 68528 05/28/202205/28, 05/21/2021, 05/18/2021, Additional history exists Dexa Scan 08/08/2025 08/08/2020, [...] NICM (nonischemic cardiomyopathy) (HCC) Other primary cardiomyopathies Permanent atrial fibrillation (HCC) Atrial fibrillation Chronic obstructive pulmonary disease, unspecified COPD type (HCC) Type 2 diabetes mellitus with hemoglobin A1c goal of less than 7.5% (HCC) Chronic 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) NICM (nonischemic cardiomyopathy) (HCC) Other primary cardiomyopathies Permanent atrial fibrillation (HCC) Atrial fibrillation Chronic obstructive pulmonary disease, unspecified COPD type (HCC) documented in this encounter Advance Directives Documents on File Type Date Recorded Patient Substance Abuse Therapist Expl anation Advanced 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 Directive Advanced Directive Advanced Directive Care Teams Jump Roll Operator Relationship Specialty Start Date End Date Marcela Pinto MD [address] [place] [address] PCP - General Internal Medicine 08/04/14 documented as of this encounter"
--- OUTSIDE RECORDS SUMMARY | 2023-06-18 03:02 | External Medical Summary ---
Author Name Unknown Address Unknown Organization K01:[place]ORY [facility] [place] [address] [place] [address] Laboratory Report Ordering Provider Test Date Status BUZZ VO 08/28/2021 13:06:17 Final Observation Date Value Abnormality Reference (Units ) Status Ferritin 08/28/2021 13:06:17 79 13-150 (ng /mL) Final Performing Location [facility] [address] [facility] [address]
--- OUTSIDE RECORDS SUMMARY | 2023-06-18 03:02 | External Medical Summary | Summary of Care ---
Author Name Unknown Organization [facility] Address [facility] [place] [address] Care Team Providers Care Associate Professor Of Mathematics Name Role Phone Marcela Pinto MD Primary Care Provider + Reason for Visit * Reason Comments Outpatient Testing Encounter Details Date Type Department Care Team Description 08/28/2021 Laboratory Laboratory [address] [place] [id number] [place] [id number] Chronic systolic heart failure (HCC); Paroxysmal atrial fibrillation (HCC); KULKARNI (dyspnea on exertion); Anemia, unspecified type; Screening for deficiency anemia Allergies Active Allergy Reactions Severity Noted Date Comments Valsartan 07/10/2010 Enalapril 05/21/2006 Escitalopram Oxalate Nausea/vomiting 10/11/2009 Nauseated Iodinated Diagnostic Agents Nausea/vomiting 05/2010 IV Contrast Iodine Hives 12/18/2009 IV Contrast Metoprolol Tartrate 11/18/2006 Made pulse low [place] Oil-Black Currant-Vit E 07/10/2010 Verapamil 03/21/2004 Bupropion [...] sthma with severity to be determined,COPD, moderate (ROPER [...] Hypoxemia 10/08/2011 10/30/2015 Genetic Sleep Disorder Research Other*[id number] 07/25/2011 05/15/2016 Diverticulitis of colon 07/25/2011 01/06/20 [...] Specialty Care Team Description 08/31/2021 Laboratory Laboratory [address] [place] [address] 09/03/2021 Cardiac Studies Cardiac Studies 11/15/2021 Office Visit Internal Medicine Marcela Pinto MD [address] [place] [address] 12/27/2021 Office Visit Cardiology Hammad Lopez, [address] [facility] [place] [address] Pending Results Name Type Priority Associated Diagnoses [...] Additional history exists CKD GFR USE SMARTSET 33003 01/17/202207/19, 06/20/2021, 06/12/2021, Additional history exists COVID-19 Vaccine (4 - Booster for Pfizer series) 02/18/2022 08/21/2021, 12/22/2020, 2020 DIABETES-HGBA1C EVERY 6 MONTHS 02/20/2022 08/23/2021, 03/09/2021, 12/05/2020, Additional history exists CKD PHOS USE SMARTSET 77616 03/09/2022 03/09/2021, 0 03/22/2019 DIABETES-EYE EXAM 03/26/2022 03/26/2021, , 08/10/2019, Additional history exists CKD HGB USE SMARTSET 88729 08/23/202208/23, 05/28/2021, 05/21/2021, Additional history exists Dexa [...] on File Type Date Recorded Patient Director Cloud Transformation Expl anation Advanced 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 Directive Advanced Directive Advanced Directive Care Teams Associate Professor Of Mathematics Relationship Specialty Start Date End Date Marcela Pinto MD [address] [place] [address] PCP - General Internal Medicine 08/04/14 documented as of this encounter
--- OUTSIDE RECORDS SUMMARY | 2023-06-18 03:02 | External Medical Summary | Summary of Care ---
Author Name Unknown Organization [place] [address] Care Team Providers Care Shop Repairer Name Role Phone Marcela Pinto MD Primary Care Provider + Reason for Visit * Reason Onset Date Comments Test Results 08/24/2021 08/24/2021 Encounter Details Date Type Department Care Team Description 08/24/2021 Telephone [facility] [address] [facility] [address] Dulce Merino CRNP [address] [place] [address] Test Results (08/24/2021) Allergies Active Allergy Reactions Severity Noted Date Comments Valsartan 07/10/2010 Enalapril 05/21/2006 Escitalopram Oxalate Nausea/vomiting 10/11/2009 Nauseated Iodinated Diagnostic Agents Nausea/vomiting 05/2010 IV Contrast Iodine Hives 12/18/2009 IV Contrast Metoprolol Tartrate 11/18/2006 Made pulse low Kelly Oil-Black Currant-Vit E 07/10/2010 Verapamil 03/21/2004 Bupropion Hcl 10/30/2009 Makes pt sick in the stomach documented as of this encounter (statuses as of 08/27/2021) Medications Medication Sig Dispensed Refills Start Date [...] determined,COPD, moderate ([facility]) TAKE 1 PUFF BY MOUTH 4 TIMES A DAY 12 g 0 08/09/2021 Active Zoster Vac Recomb Adjuvanted 50 MCG/0.5ML Intramuscular Suspension Reconstituted (Shingrix) Inject 0.5 mL into a large muscle now and repeat dose in 60 to 180 days 1 Each 1 08/09/2021 Active documented as of this encounter (statuses as of 08/27/2021) Active Problems Problem Noted Date Subclinical hyperthyroidism [...] as of this encounter (statuses as of 08/27/2021) Resolved Problems Problem Noted Date Resolved Date [...] Hypoxemia 10/08/2011 10/30/2015 Genetic Sleep Disorder Research Other*[id number] 07/25/2011 05/15/2016 Diverticulitis of colon 07/25/2011 01/06/20 [...] as of this encounter (statuses as of 08/27/2021) Immunizations Name Administration Dates Next Due COVID-19 mRNA, LNP-s, No Pre serve, 2-Dose Series ([employer]) 08/21/2021,12/22/2020,2020 Hepatitis B, 20+ yrs 10/01/2017,04/21/2017,03/20 Pneumococcal [...] \ [place] Arita * Telephone Encounter - Marecla Pinto MD - 08/24/2021 3:35 PM EST [...] Encounters Date Type Specialty Care Team Description 08/28/2021 Laboratory Laboratory [address] [place] [address] 08/31/2021 Laboratory Laboratory [address] [place] [address] 09/03/2021 Cardiac Studies Cardiac Studies 11/15/2021 Office Visit Internal Medicine [facility] [address] [facility] [address] 12/27/2021 Office Visit Cardiology Hammad Lopez, DO [address] [facility] [place] [address] Scheduled Orders Name Type Priority Associated Diagnoses Orde r Schedule OCCULT BLOOD SCREEN, 3 CARD MAIL IN Lab Routine Screening for deficiency anemia Expected: 08/24/2021, Expires: 08/24/2022 CBC WITH WBC DIFFERENTIAL Lab Routine Screening for deficiency anemia Expected: 08/29/2021 (Approximate), Expires: 08/24/2022 Health Maintenance Due Date Last Done Comments Zoster Vaccines (2 of 3) 08/31/2012 07/06/2012 DIABETES-FOOT EXAM 12/21/2021 12/21/2020, 0 10/19/2019, 01/05/2019, Additional history exists CKD GFR USE SMARTSET 01519 01/17/202207/19, 06/20/2021, 06/12/2021, Additional history exists COVID-19 Vaccine (4 - Booster for Pfizer series) 02/18/2022 08/21/2021, 12/22/2020, 2020 DIABETES-HGBA1C EVERY 6 MONTHS 02/20/2022 08/23/2021, 03/09/2021, 12/05/2020, Additional history exists CKD PHOS USE SMARTSET 07271 03/09/2022 03/09/2021, 0 03/22/2019 DIABETES-EYE EXAM 03/26/2022 03/26/2021, , 08/10/2019, Additional history exists CKD HGB USE SMARTSET 02779 08/23/202208/23, 05/28/2021, 05/21/2021, Additional history exists Dexa [...] Documents on File Type Date Recorded Patient Light Bulb Replacer Expl anation Advanced 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 Directive Advanced Directive Advanced Directive Care Teams Shop Repairer Relationship Specialty Start Date End Date Marcela Pinto MD [address] [place] [address] PCP - General Internal Medicine 08/04/14 documented as of this encounter
--- OUTSIDE RECORDS SUMMARY | 2023-06-18 03:03 | External Medical Summary | Summary of Care ---
Author Name Unknown Organization [place] [address] Care Team Providers Care Hot Dip Galvanizer Name Role Phone Marcela Pinto MD Primary Care Provider + Reason for Visit * Reason Onset Date Comments Status Check 08/16/2021 Encounter Details Date Type Department Care Team Description 08/16/2021 Telephone General Internal Medicine [facility] [address] [place] [address] Marcela Pinto MD [address] [place] [address] [phone] Status Check Allergies Active Allergy Reactions Severity Noted Date Comments Valsartan 07/10/2010 Enalapril 05/21/2006 Escitalopram Oxalate Nausea/vomiting 10/11/2009 Nauseated Iodinated Diagnostic Agents Nausea/vomiting 05/2010 IV Contrast Iodine Hives 12/18/2009 IV Contrast Metoprolol Tartrate 11/18/2006 Made pulse low [place] Oil-Black Currant-Vit E 07/10/2010 Verapamil 03/21/2004 Bupropion Hcl 10/30/2009 Makes pt sick in the stomach documented as of this encounter (statuses as of 08/17/2021) Medications Medication Sig Dispensed Refills Start Date [...] DAYS NEEDED FOR CONSTIPATION 0 11/26/2017 Active glimepiride (AMARYL) 4 MG TabletIndications:Ty pe 2 diabetes mellitus with hemoglobin A1c goal of less than 7.5% (HCC) Take 2 mg by mouth daily before breakfast. 90 Tab 3 01/05/2019 Active docusate sodium (COLACE) 100 MG Capsule [...] hemoglobin A1c goal of less than 7.0% (HCC) Use as directed. USE TO TEST BLOOD [...] diastolic dysfunction (HCC),NICM (nonischemic cardiomyopathy) ([facility]),Presence of [...] WITH BREAKFAST 30 Tab 2 07/18/2021 Active Promethazine HCl 25 MG Oral Tablet (Phenergan)Indicatio ns:Generalized osteoarthritis TAKE 1 TABLET BY MOUTH EVERY 6 HOURS NEEDED FOR NAUSEA 60 Tab 2 07/18/2021 Active HYDROcodone-Acetamin ophen 5-325 MG Oral TabletIndications:Ge neralized osteoarthritis Take 1 Tab by mouth every 6 hours as needed for Pain, Mild. 120 Tab 0 07/18/2021 Active Ipratropium-Albutero l 20-100 MCG/ACT Inhalation Aerosol Solution (Combivent Respimat)Indications :Asthma with severity to be determined,COPD, moderate ([facility]) TAKE 1 PUFF BY MOUTH 4 TIMES A DAY 12 g 0 08/09/2021 Active Zoster Vac Recomb Adjuvanted 50 MCG/0.5ML Intramuscular Suspension Reconstituted (Shingrix) Inject 0.5 mL into a large muscle now and repeat dose in 60 to 180 days 1 Each 1 08/09/2021 Active metroNIDAZOLE 500 MG Oral Tablet Take 1 Tab by mouth 3 times a day. 30 Tab 0 08/10/2021 Active Ciprofloxacin HCl 500 MG Oral Tablet (Cipro) Take 1 Tab by mouth every 12 hours. 20 Tab 0 08/11/2021 Active levoFLOXacin 750 MG Oral Tablet (Levaquin) Take 1 Tab by mouth daily for 10 days. 10 Tab 0 08/17/2021 08/27/2021 Active documented as of this encounter (statuses as of 08/17/2021) Active Problems Problem Noted Date Chronic kidney disease, stage 3a 021 Overview: [...] as of this encounter (statuses as of 08/17/2021) Resolved Problems Problem Noted Date Resolved Date [...] Hypoxemia 10/08/2011 10/30/2015 Genetic Sleep Disorder Research Other*[id number] 07/25/2011 05/15/2016 Diverticulitis of colon 07/25/2011 01/06/20 [...] as of this encounter (statuses as of 08/17/2021) Immunizations Name Administration Dates Next Due COVID-19 mRNA, LNP-s, No Pre serve, 2-Dose Series ([employer]) 12/22/2020,2020 Hepatitis B, 20+ yrs 10/01/2017,04/21/2017,03/20 Pneumococcal [...] Smoker Smokeless Tobacco: Never Used Alcohol Use Drinks/Week oz/Week Comments No Food Insecurity Answer Date Recorded Within the past 12 months, y ou worried that your food would run out before you got money to buy more. Never true Within the past 12 months, t he food you bought just didn't last and you didn't have money to get more. Never true Sex Assigned at Date Recorded Female 04/06/2019 2:19 PM E [employer] Job Start Date Occupation Industry Not on file Not on file Not on file documented as of this encounter Miscellaneous Notes * Telephone Encounter - Marcela Pinto MD - 08/17/2021 1:07 PM EDT Noted. Script for Levaquin was sent through another encounter. Please inform. Also need to make sure that she take probiotic and take this medication with food and hydration. There is a high risk forAchilles tendon rupture and also C diff diarrhea with this medications so she should take all the precautions. Thanks * Addendum Note - Marcela Pinto MD - 08/17/2021 1:06 PM EDT Addended by: MARCELA PINTO on: 08/17/2021 01:06 PM Modules accepted: Orders * Addendum Note - Mayelin Chaves [facility] - 08/16/2021 1:13 PM EDT Addended by: MAYELIN CHAVES on: 08/16/2021 01:13 PM Modules accepted: Orders * Telephone Encounter - Mayelin Chaves RPh - 08/16/2021 1:11 PM EDT Patient calling stating cipro is on a backorder. This medication has been sent to 2 pharmacies and patient has not been able to get it. Recommend changing antibiotic. Pended new rx per guidelines. Pending Prescriptions: Disp Refills levoFLOXacin 750 MG Oral Tablet (Levaquin)10 Tab 0 Sig: Take 1 Tab by mouth daily for 10 days. Please approve if appropriate and route back to me to advise patient. Thanks, Mayelin Chaves PharmD Clinical Pharmacist [facility] 08/16/2021, 1:12 PM * Telephone Encounter - Em Duarte PHARM Tech - 08/16/2021 12:32 PM EDT Pt calling to inform doctor that the pt's medication is on backorder and requesting an alternative.. Did confirm this information with the pharmacy. Pt's current insurance information is as follows: Patient name: Nina Harrington ID number: [id number] BIN number: [id number] PCN number: [id number] Group number: [id number] Subscriber name: Nina Harrington Primary or Secondary Insurance:Primary Medication: Ciprofloxacin HCl 500 MG Oral Tablet (Cipro) Reason for Request: med on b/.o Pharmacy and phone number: [facility] [address] [place] [address] Rx plan and phone number: [facility] [phone] What alternative medications does the pharmacy have in stock?: n/a List of medications pt has tried and failed: n/a Thank you, Em Duarte, [facility] Attendant [facility] 08/16/2021,12:32 PM * Telephone Encounter - Janny Mercedes PHARM Tech - 08/16/2021 11:34 AM EDT Pt calling to request cipro. Informed pt that RX is available at their pharmacy. Pt verbalized understanding and stated they will check with their pharmacy regarding this medication. Thank you, Janny Mercedes [facility] Attendant [facility] 08/16/2021, 11:36 AM documented in this encounter Plan of Treatment Upcoming Encounters Date Type Specialty Care Team Description 08/20/2021 Office Visit Internal Medicine David Duke PA-C [address] [place] [address] [phone] 08/21/2021 Immunization [place], Covid19 Vaccine [address] [place] [address] 08/23/2021 Office Visit Cardiology Dulce Merino CRNP [address] [facility] [place] [address] [phone] Health Maintenance Due Date Last Done Comments Zoster Vaccines (2 of 3) 08/31/2012 07/06/2012 COVID-19 Vaccine (3 - Pfizer risk 3-dose series) 01/19/2021 12/22/2020, 2020 DIABETES-HGBA1C EVERY 6 MONTHS 09/09/2021 03/09/2021, 12/05/2020, 08/10/2020, Additional history exists DIABETES-FOOT EXAM 12/21/2021 12/21/2020, 0 10/19/2019, 01/05/2019, Additional history exists CKD GFR USE SMARTSET 26368 01/17/202207/19, 06/20/2021, 06/12/2021, Additional history exists CKD PHOS USE SMARTSET 45787 03/09/2022 03/09/2021, 0 03/22/2019 DIABETES-EYE EXAM 03/26/2022 03/26/2021, , 08/10/2019, Additional history exists CKD HGB USE SMARTSET 79384 05/28/202205/28, 05/21/2021, 05/18/2021, Additional history exists Dexa Scan 08/08/2025 08/08/2020, 04/13, 06/19/2010, Additional history exists DTaP,Tdap,and Td Vaccines (2 - Td) 06/04/2028 06/04/2018, 02/28/2009 Pneumococcal Vaccine: 65+ Years Completed 03/28/2015, 05/21/2006 Influenza Vaccine (FLU shot) Completed , 06/22/2020, 07/09/2019, Additional history exists MENINGOCOCCAL (MENACTRA/MENVEO) Aged Out No longer eligible based on patient's age to complete this topic documented as of this encounter Implants Not on filedocumented as of this encounter Advance Directives Documents on File Type Date 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
--- OUTSIDE RECORDS SUMMARY | 2023-06-18 03:03 | External Medical Summary | Summary of Care ---
Author Name Unknown Organization [place] [address] Care Team Providers Care Critical Care Transport Nurse Name Role Phone Marcela Pinto MD Primary Care Provider + Reason for Visit * Reason Comments Follow Up voices no concerns Encounter Details Date Type Department Care Team Description 08/20/2021 Office Visit General Internal Medicine [facility] [address] [facility] [place] [address] David Duke PA-C [address] [facility] [place], [place] [id number] COPD, group B, 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 ([facility])*; Chronic hypoxemic respiratory failure ([facility]); Type 2 diabetes mellitus with stage 3a chronic kidney disease, without long-term current use of insulin ([facility]); Type 2 diabetes mellitus with hemoglobin A1c goal of less than 7.5% ([facility]); Hyperlipidemia with target LDL less than 100; Sleep apnea, obstructive; Chronic systolic heart failure ([facility]); HTN, goal below 140/90; Pulmonary HTN ([facility]); Paroxysmal atrial fibrillation ([facility]); Gastro-esophageal reflux disease without esophagitis; Irritable bowel syndrome with constipation; Ischemic colitis ([facility]); Subclinical hyperthyroidism; Morbid obesity with BMI of 40.0-44.9, adult ([facility]) Allergies Active Allergy Reactions Severity Noted Date Comments Valsartan 07/10/2010 Enalapril 05/21/2006 Escitalopram Oxalate Nausea/vomiting 10/11/2009 Nauseated Iodinated Diagnostic Agents Nausea/vomiting 05/2010 IV Contrast Iodine Hives 12/18/2009 IV Contrast Metoprolol Tartrate 11/18/2006 Made pulse low [place] Oil-Black Currant-Vit E 07/10/2010 Verapamil 03/21/2004 Bupropion Hcl 10/30/2009 Makes pt sick in the stomach documented as of this encounter (statuses as of 08/20/2021) Medications Medication Sig Dispensed Refills Start Date [...] DAYS NEEDED FOR CONSTIPATION 0 8 Active glimepiride (AMARYL) 4 MG TabletIndications:T ype 2 diabetes mellitus with hemoglobin A1c goal of less than 7.5% ([facility]) Take 2 mg by mouth daily before breakfast. 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 120 Tab 0 1 Active Ipratropium-Albuter ol 20-100 MCG/ACT Inhalation [...] 180 days 1 Each 1 1 Active metroNIDAZOLE 500 MG Oral Tablet Take 1 Tab by mouth 3 times a day. 30 Tab 0 1 08/20/20 21 Discontinued levoFLOXacin 750 MG Oral Tablet (Levaquin) Take 1 Tab by mouth daily for 10 days. 10 Tab 0 1 08/20/20 21 Discontinued documented as of this encounter (statuses as of 08/20/2021) Active Problems Problem Noted Date Subclinical hyperthyroidism [...] as of this encounter (statuses as of 08/20/2021) Resolved Problems Problem Noted Date Resolved Date [...] Hypoxemia 10/08/2011 10/30/2015 Genetic Sleep Disorder Research Other*[id number] 07/25/2011 05/15/2016 Diverticulitis of colon 07/25/2011 01/06/20 [...] as of this encounter (statuses as of 08/20/2021) Immunizations Name Administration Dates Next Due COVID-19 mRNA, LNP-s, No Pre serve, 2-Dose Series ([employer]) 12/22/2020,2020 Hepatitis B, 20+ yrs 10/01/2017,04/21/2017,03/20 Pneumococcal [...] Reading Time Taken Comments Blood Pressure 122/74 08/20/2021 2:10 PM EST Pulse 68 08/20/2021 2:10 PM EST Temperature 36.6 C (97.9 F) 08/20/2021 2:10 PM ES T Respiratory Rate 16 08/20/2021 2:10 PM EST Oxygen Saturation - - Inhaled Oxygen Concentration - - Weight 116.8 kg (257 lb 6.4 oz) 08/20/2021 2:10 PM EST Height 165.1 cm (5' 5") 08/20/2021 2:10 PM EST Body Mass Index 42.83 08/20/2021 2:10 PM EST documented in this encounter Progress Notes * Bisi Cruz LPN - 08/20/2021 2:10 PM EST Chief Complaint Patient presents with Follow Up voices no concerns * David Duke PA-C - 08/20/2021 2:05 PM EST Subjective: Nina Harrington is a 80 year old female. Chief Complaint Patient presents with Follow Up voices no concerns HPI: 80 y/o female with HTN, HLD, DM II, IBS, HECTOR, COPD, asthma, sleep apnea, GERD, heart failure, CKD III, pAF, hypoxic respiratory failure seen today for follow up. Denies any complaints today. Hasstable SOB with oxygen use. [facility] Sees [facility] endocrinology for subclinical hyperthyroidism. Has labs coming up prior to her next appointment. Was given cipro and flagyl 07/10 for LLQ pain suspected possible diverticulitis. Has not worsened and has not taken therapy to date. Does have underlying constipation which she uses Miralax for usually. No blood or melena. PMH: Patient Active Problem List Diagnosis Code [...] A1c goal of less than 7.5% ([facility]) E11.9 Hypercalcemia E83.52 Elevated plasma metanephrines R79.89 Irritable bowel syndrome with constipation K58.1 Ischemic colitis ([facility]) K55.9 HECTOR (generalized anxiety disorder) F41.1 COPD, group B, 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 ([facility]) J44.9 Morbid obesity with BMI of 40.0-44.9, adult ([facility]) E66.01, Z68.41 Gastro-esophageal reflux disease without esophagitis K21.9 Paroxysmal atrial fibrillation ([facility]) I48.0 Chronic systolic heart failure ([facility]) I50.22 Pulmonary HTN ([facility]) I27.20 Chronic hypoxemic respiratory failure ([facility]) J96.11 Type 2 diabetes mellitus with stage 3a chronic kidney disease ([facility]) E11.22, N18.31 Chronic kidney disease, stage 3a ([facility]) N18.31 Subclinical hyperthyroidism E05.90 Current Outpatient Medications Medication Sig Dispense Refill [...] FOR 10 DAYS NEEDED FOR CONSTIPATION 0 glimepiride (AMARYL) 4 MG Tablet Take 2 mg by mouth daily before breakfast. 90 Tab 3 docusate sodium (COLACE) 100 MG Capsule Take [...] MOUTH TWICE A DAY 180 Cap 1 [employer] N Voice System Device Use as [...] EVERY DAY WITH BREAKFAST 30 Tab 2 Promethazine HCl 25 MG [...] HOSPITAL EGD, FLEXIBLE, DIAGNOSTIC 05/29/2016 fundic submucosal mass/[facility] EGD, FLEXIBLE, DIAGNOSTIC 05/08/2020 normal / [facility] [...] GALLBLADDER 1960 SIGMOIDOSCOPY, DIAGNOSTIC 04/29/2014 [facility], REMOVE FOREIGN BODY mesh from prior hernia surgery, wrapped around small bowel. 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 Objective: BP 122/74 | Pulse 68 | Temp 36.6 C (97.9 F) | Resp 16 | Ht 1.651 m (5' 5") | Wt 116.8 kg (257 lb 6.4 oz) | BMI 42.83 kg/m | BSA 2.31 m Physical Exam Constitutional: General: She is not in acute distress. Appearance: Normal appearance. She is obese. She is not ill-appearing or toxic-appearing. HENT: Head: Normocephalic and atraumatic. Eyes: Extraocular Movements: Extraocular movements intact. Conjunctiva/sclera: Conjunctivae normal. Pupils: Pupils are equal, round, and reactive to light. Cardiovascular: Rate and Rhythm: Normal rate. Rhythm irregular. Heart sounds: Normal heart sounds. No murmur heard. No friction rub. No gallop. Pulmonary: Effort: Pulmonary effort is normal. Breath sounds: Normal breath sounds. No wheezing, rhonchi or rales. Comments: Diminished Abdominal: General: Bowel sounds are normal. There is no distension. Palpations: Abdomen is soft. There is no mass. Tenderness: There is no abdominal tenderness. There is no guarding or rebound. Neurological: Mental Status: She is alert. ASSESSMENT: COPD, group B, 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 ([facility]) (Primary) Follow with pulm. Continue current therapay. Stable. Chronic hypoxemic respiratory failure ([facility]) 2 liters during day and 4L at night Type 2 diabetes mellitus with stage 3a chronic kidney disease, without long-term current use of insulin ([facility]) Renal function stable with recent diuretic adjustment. Type 2 diabetes mellitus with hemoglobin A1c goal of less than 7.5% ([facility]) - HEMOGLOBIN A1C; Future; Expected date: 08/20/2021 Continue glimepiride. At goal Hyperlipidemia with target LDL less than 100 Continue statin. Cholesterol good. Sleep apnea, obstructive Chronic systolic heart failure ([facility]) Followed by cardiology. Non-obstructive CAD on most recent cath. Continue medical management at their direction. HTN controlled. HTN, goal below 140/90 Pulmonary HTN ([facility]) Paroxysmal atrial fibrillation ([facility]) S/p Watchmen. Rate controlled. Gastro-esophageal reflux disease without esophagitis Continue PPI. Irritable bowel syndrome with constipation LLQ pain secondary to constipation most likely given she has not taken antibiotics and symptoms have not worsened. Do not think she needs to take antibiotics at this time. Would be diligent with Miralax to see if symptoms resolve. Ischemic colitis ([facility]) Subclinical hyperthyroidism Followed by endocrinology. Tapazole at their direction. Morbid obesity with BMI of 40.0-44.9, adult ([facility]) Follow Up: Return in about 3 months (around 11/20/2021), or if symptoms worsen or fail to improve, for Return with Physician. | For: Return with Physician | Check-out note: Print off a1c order I spent a total of 40-54 minutes (exact time 40 mins) on the date of service in preparation, delivery, and documentation of the care provided to Nina Harrington excluding any time spent in the performance of separately billed services. David Duke PA-C documented in this encounter Plan of Treatment Upcoming Encounters Date Type Specialty Care Team Description 08/21/2021 Immunization [place], Covid19 Vaccine [address] [place] [address] 08/23/2021 Office Visit Cardiology Dulce Merino CRNP [address] [facility] [place] [address] 11/15/2021 Office Visit Internal Medicine Marcela Pinto MD [address] [facility] [place] [address] Scheduled Orders Name Type Priority Associated Diagnoses Orde r Schedule HEMOGLOBIN A1C Lab Routine Type 2 diabetes mellitus with hemoglobin A1c goal of less than 7.5% (HCC) Expected: 08/20/2021 (Approximate), Expires: 08/20/2022 Health Maintenance Due Date Last Done Comments Zoster Vaccines (2 of 3) 08/31/2012 07/06/2012 COVID-19 Vaccine (3 - Pfizer risk 3-dose series) 01/19/2021 12/22/2020, 2020 DIABETES-HGBA1C EVERY 6 MONTHS 09/09/2021 03/09/2021, 12/05/2020, 08/10/2020, Additional history exists DIABETES-FOOT EXAM 12/21/2021 12/21/2020, 0 10/19/2019, 01/05/2019, Additional history exists CKD GFR USE SMARTSET 08834 01/17/202207/19, 06/20/2021, 06/12/2021, Additional history exists CKD PHOS USE SMARTSET 67133 03/09/2022 03/09/2021, 0 03/22/2019 DIABETES-EYE EXAM 03/26/2022 03/26/2021, , 08/10/2019, Additional history exists CKD HGB USE SMARTSET 82147 05/28/202205/28, 05/21/2021, 05/18/2021, Additional history exists Dexa [...] as of this encounter Visit Diagnoses Diagnosis COPD, group B, 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 ([facility])- Primary Chronic hypoxemic respiratory failure (HCC) Chronic respiratory failure Type 2 diabetes mellitus with stage [...] diseases Paroxysmal atrial fibrillation (HCC) Atrial fibrillation Gastro-esophageal reflux disease without esophagitis Esophageal reflux Irritable bowel syndrome with constipation Irritable bowel syndrome Ischemic colitis (HCC) Unspecified vascular insufficiency of intestine Subclinical hyperthyroidism Thyrotoxicosis without mention of goiter or other cause, without mention of thyrotoxic crisis or storm Morbid obesity with BMI of 40.0-44.9, adult (HCC) Morbid obesity documented in this encounter Advance Directives Documents on File Type Date Recorded 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
--- OUTSIDE RECORDS SUMMARY | 2023-06-18 03:03 | External Medical Summary | Summary of Care ---
Author Name Unknown Organization [place] [address] Care Team Providers Care Inventory Control Specialist Name Role Phone Marcela Pinto MD Primary Care Provider + Reason for Visit * Reason Onset Date Comments Status Check 08/16/2021 Encounter Details Date Type Department Care Team Description 08/16/2021 Telephone General Internal Medicine [facility] [address] [facility] [place] [address] Marcela Pinto MD [address] [place] [address] [phone] Status Check Allergies Active Allergy Reactions Severity Noted Date Comments Valsartan 07/10/2010 Enalapril 05/21/2006 Escitalopram Oxalate Nausea/vomiting 10/11/2009 Nauseated Iodinated Diagnostic Agents Nausea/vomiting 05/2010 IV Contrast Iodine Hives 12/18/2009 IV Contrast Metoprolol Tartrate 11/18/2006 Made pulse low [place] Oil-Black Currant-Vit E 07/10/2010 Verapamil 03/21/2004 Bupropion [...] diastolic dysfunction (HCC),NICM (nonischemic cardiomyopathy) ([facility]),Presence of Watchman [...] Hypoxemia 10/08/2011 10/30/2015 Genetic Sleep Disorder Research Other*[id number] 07/25/2011 05/15/2016 Diverticulitis of colon 07/25/2011 01/06/20 [...] mRNA, LNP-s, No Pre serve, 2-Dose Series ([employer]) 12/22/2020,2020 Hepatitis B, 20+ yrs 10/01/2017,04/21/2017,03/20 Pneumococcal [...] Orders * Addendum Note - Mayelin Chaves RPh - 08/16/2021 1:13 PM EDT Addended by: [...] patient. Thanks, Mayelin Chaves PharmD Clinical Pharmacist [facility] 08/16/2021, 1:12 PM * Telephone Encounter - Em Duarte PHARM Tech - 08/16/2021 12:32 PM EDT Pt calling to inform doctor that the pt's medication is on backorder and requesting an alternative.. Did confirm this information with the pharmacy. Pt's current insurance information is as follows: Patient name: Nina Harrington ID number: [id number] BIN number: [id number] PCN number: [id number] Group number: [id number] Subscriber name: Nina Harrington Primary or Secondary Insurance:Primary Medication: Ciprofloxacin HCl 500 MG Oral Tablet (Cipro) Reason for Request: med on b/.o Pharmacy and phone number: [facility] [address] [place] [address] Rx plan and phone number: [facility] [employer] [phone] What alternative medications does the pharmacy have in stock?: n/a List of medications pt has tried and failed: n/a Thank you, Em Duarte, Instructor Programmable Controllers [facility] 08/16/2021,12:32 PM * Telephone Encounter - Janny Mercedes PHARM Tech - 08/16/2021 11:34 AM EDT Pt calling to request cipro. Informed pt that RX is available at their pharmacy. Pt verbalized understanding and stated they will check with their pharmacy regarding this medication. Thank you, Janny Mercedes Instructor Programmable Controllers [employer] [facility] 08/16/2021, 11:36 AM documented in this encounter Plan of Treatment Upcoming Encounters Date Type Specialty Care Team Description 08/20/2021 Office Visit Internal Medicine David Duke PA-C [address] [place] [address] [phone] 08/21/2021 Immunization [place], Covid19 Vaccine [address] [place] [address] [phone] 08/23/2021 Office Visit Cardiology Dulce Merino CRNP [address] [facility] [place] [address] [phone] Health Maintenance Due Date Last Done Comments Zoster Vaccines (2 of 3) 08/31/2012 07/06/2012 COVID-19 Vaccine (3 - Pfizer risk 3-dose series) 01/19/2021 12/22/2020, 2020 DIABETES-HGBA1C EVERY 6 MONTHS 09/09/2021 03/09/2021, 12/05/2020, 08/10/2020, Additional history exists DIABETES-FOOT EXAM 12/21/2021 12/21/2020, 0 10/19/2019, 01/05/2019, Additional history exists CKD GFR USE SMARTSET 68404 01/17/202207/19, 06/20/2021, 06/12/2021, Additional history exists CKD PHOS USE SMARTSET 49724 03/09/2022 03/09/2021, 0 03/22/2019 DIABETES-EYE EXAM 03/26/2022 03/26/2021, , 08/10/2019, Additional history exists CKD HGB USE SMARTSET 25788 05/28/202205/28, 05/21/2021, 05/18/2021, Additional history exists Dexa [...] Documents on File Type Date Recorded Patient Superintendent Logging Expl anation Advanced 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
--- OUTSIDE RECORDS SUMMARY | 2023-06-18 03:03 | External Medical Summary | Summary of Care ---
Author Name Unknown Organization [place] [address] Care Team Providers Care School Cleaner Name Role Phone Marcela Pinto MD Primary Care Provider + Reason for Visit * Reason Onset Date Comments Medication Refill 08/17/2021 Encounter Details Date Type Department Care Team Description 08/17/2021 Telephone General Internal Medicine [facility] 200 [facility] [place] [address] Marcela Pinto MD [address] [place] [address] [phone] Medication Refill Allergies Active Allergy Reactions Severity Noted Date Comments Valsartan 07/10/2010 Enalapril 05/21/2006 Escitalopram Oxalate Nausea/vomiting 10/11/2009 Nauseated Iodinated Diagnostic Agents Nausea/vomiting 05/2010 IV Contrast Iodine Hives 12/18/2009 IV Contrast Metoprolol Tartrate 11/18/2006 Made pulse low [place] Oil-Black Currant-Vit E 07/10/2010 Verapamil 03/21/2004 [...] and diastolic dysfunction (HCC),NICM (nonischemic cardiomyopathy) ([facility]),Presence of [...] a day. 30 Tab 0 08/10/2021 Active levoFLOXacin 750 MG Oral Tablet (Levaquin) [...] persistent 01/09/2021 05/2 01/2021 Asthma, severe persistent 01/09/20211 Intermittent asthma with reliever use up to [...] Hypoxemia 10/08/2011 10/30/2015 Genetic Sleep Disorder Research Other*[id number] 07/25/2011 05/15/2016 Diverticulitis of colon 07/25/2011 01/06/20 [...] mRNA, LNP-s, No Pre serve, 2-Dose Series ([employer]) 12/22/2020,2020 Hepatitis B, 20+ yrs 10/01/2017,04/21/2017,03/20 Pneumococcal [...] encounter Miscellaneous Notes * Telephone Encounter - Kristal Rebolledo RP - 08/17/2021 2:28 PM EDT Verified interactions in 3 sources: Drugs in this analysis: Advair HFA Inhalation, HYDROcodone-Acetaminophen Oral, levoFLOXacin Oral Drug-Allergy Interactions: No interactions identified in the database Advised pharmacy okay to fill; pt was counseled on points that provider noted. Thank you, Kristal Rebolledo [facility] Clinical Pharmacist Telepharmacy [phone] 08/17/2021, 2:34 PM * Telephone Encounter - Lexie Riley vendor analyst - 08/17/2021 2:16 PM EDT [facility] Pharmacy is calling regarding a potential drug interaction between two medications that the pt has been prescribed. The interaction is as follows: Drug Interaction 1. Advair HFA 230-21 MCG/ACT Inhalation Aerosol (fluticasone-Salmeterol 2.HYDROcodone-Acetaminophen 5-325 MG Oral Tablet 3 levoFLOXacin 750 MG Oral Tablet (Levaquin Drug interaction heart agriothymia Also muscle and tendon rupture Please review and advise provider appropriately. Thank you, Lexie Riley Merchandising Assistant Pharmacy Refill Call Center 08/17/2021,2:16 PM documented in this encounter Plan of Treatment Upcoming Encounters Date Type Specialty Care Team Description 08/20/2021 Office Visit Internal Medicine David Duke PA-C [address] [place] [address] [phone] 08/21/2021 Immunization [place], Covid19 Vaccine [address] [place] [address] [phone] 08/23/2021 Office Visit Cardiology Dulce Merino CRNP [address] [place] [address] [phone] Health Maintenance Due Date Last Done Comments Zoster Vaccines (2 of 3) 08/31/2012 07/06/2012 COVID-19 Vaccine (3 - Pfizer risk 3-dose series) 01/19/2021 12/22/2020, 2020 DIABETES-HGBA1C EVERY 6 MONTHS 09/09/2021 03/09/2021, 12/05/2020, 08/10/2020, Additional history exists DIABETES-FOOT EXAM 12/21/2021 12/21/2020, 0 10/19/2019, 01/05/2019, Additional history exists CKD GFR USE SMARTSET 83167 01/17/202207/19, 06/20/2021, 06/12/2021, Additional history exists CKD PHOS USE SMARTSET 54230 03/09/2022 03/09/2021, 0 03/22/2019 DIABETES-EYE EXAM 03/26/2022 03/26/2021, , 08/10/2019, Additional history exists CKD HGB USE SMARTSET 23632 05/28/202205/28, 05/21/2021, 05/18/2021, Additional history exists Dexa [...] Documents on File Type Date Recorded Patient Language Teacher Expl 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
--- OUTSIDE RECORDS SUMMARY | 2023-06-18 03:03 | External Medical Summary | Summary of Care ---
Author Name Unknown Organization [place] [address] Care Team Providers Care Answering Service Operator Name Role Phone Marcela Pinto MD Primary Care Provider + Reason for Visit * Reason Onset Date Comments Status Check 08/16/2021 Encounter Details Date Type Department Care Team Description 08/16/2021 Telephone General Internal Medicine [facility] [address] [facility] [place] [address] Marcela Pinto MD [address] [place] [address] [phone] Status Check Allergies Active Allergy Reactions Severity Noted Date Comments Valsartan 07/10/2010 Enalapril 05/21/2006 Escitalopram Oxalate Nausea/vomiting 10/11/2009 Nauseated Iodinated Diagnostic Agents Nausea/vomiting 05/2010 IV Contrast Iodine Hives 12/18/2009 IV Contrast Metoprolol Tartrate 11/18/2006 Made pulse low [place] Oil-Black Currant-Vit E 07/10/2010 Verapamil 03/21/2004 Bupropion Hcl 10/30/2009 Makes pt sick in the stomach documented as of this encounter (statuses as of 08/16/2021) Medications Medication Sig Dispensed Refills Start Date [...] 0 11/26/2017 Active glimepiride (AMARYL) 4 MG TabletIndications:Typ e 2 diabetes mellitus with hemoglobin A1c [...] fraction and diastolic dysfunction (HCC),NICM (nonischemic cardiomyopathy) ([facility]),Presence of Watchman left atrial appendage [...] Active Promethazine HCl 25 MG Oral Tablet (Phenergan)Indication [...] 12 hours. 20 Tab 0 08/11/2021 Active documented as of this encounter (statuses as of 08/16/2021) Active Problems Problem Noted Date Chronic kidney [...] as of this encounter (statuses as of 08/16/2021) Resolved Problems Problem Noted Date Resolved Date [...] Hypoxemia 10/08/2011 10/30/2015 Genetic Sleep Disorder Research Other*[id number] 07/25/2011 05/15/2016 Diverticulitis of colon 07/25/2011 01/06/20 [...] as of this encounter (statuses as of 08/16/2021) Immunizations Name Administration Dates Next Due COVID-19 mRNA, LNP-s, No Pre serve, 2-Dose Series ([employer]) 12/22/2020,2020 Hepatitis B, 20+ yrs 10/01/2017,04/21/2017,03/20 Pneumococcal [...] encounter Miscellaneous Notes * Addendum Note - Sheridan Chaves RPh - 08/16/2021 1:13 PM EDT Addended by: SHERIDAN CHAVES on: 08/16/2021 01:13 PM Modules accepted: Orders * Telephone Encounter - Sheridan Chaves RPh - 08/16/2021 1:11 PM EDT [...] back to me to advise patient. Thanks, Sheridan Chaves PharmD Clinical Pharmacist Telepharmacy 08/16/2021, 1:12 PM * Telephone Encounter - Em Duarte PHARM Tech - 08/16/2021 12:32 PM EDT Pt calling to inform doctor that the pt's medication is on backorder and requesting an alternative.. Did confirm this information with the pharmacy. Pt's current insurance information is as follows: Patient name: Nina Harrington ID number: [id number] BIN number: [id number] PCN number: [id number] Group number: [id number] Subscriber name: Nina Harrington Primary or Secondary Insurance:Primary Medication: Ciprofloxacin HCl 500 MG Oral Tablet (Cipro) Reason for Request: med on b/.o Pharmacy and phone number: [facility] [address] [place] [address] Rx plan and phone number: [facility] [employer] [phone] What alternative medications does the pharmacy have in stock?: n/a List of medications pt has tried and failed: n/a Thank you, Em Duarte, Publications Distribution Clerk [employer] 08/16/2021,12:32 PM * Telephone Encounter - Janny Mercedes PHARM Tech - 08/16/2021 11:34 AM EDT Pt calling to request cipro. Informed pt that RX is available at their pharmacy. Pt verbalized understanding and stated they will check with their pharmacy regarding this medication. Thank you, Janny Mercedes Publications Distribution Clerk [employer] 08/16/2021, 11:36 AM documented in this encounter Plan of Treatment Upcoming Encounters Date Type Specialty Care Team Description 08/20/2021 Office Visit Internal Medicine David Duke PA-C [address] [place] [address] [phone] 08/21/2021 Immunization [place], Covid19 Vaccine [address] [place] [address] [phone] 08/23/2021 Office Visit Cardiology Dulce Merino CRNP [address] [facility] [place] [address] Health Maintenance Due Date Last Done Comments Zoster Vaccines (2 of 3) 08/31/2012 07/06/2012 COVID-19 Vaccine (3 - Pfizer risk 3-dose series) 01/19/2021 12/22/2020, 2020 DIABETES-HGBA1C EVERY 6 MONTHS 09/09/2021 03/09/2021, 12/05/2020, 08/10/2020, Additional history exists DIABETES-FOOT EXAM 12/21/2021 12/21/2020, 0 10/19/2019, 01/05/2019, Additional history exists CKD GFR USE SMARTSET 19885 01/17/202207/19, 06/20/2021, 06/12/2021, Additional history exists CKD PHOS USE SMARTSET 31861 03/09/2022 03/09/2021, 0 03/22/2019 DIABETES-EYE EXAM 03/26/2022 03/26/2021, , 08/10/2019, Additional history exists CKD HGB USE SMARTSET 30127 05/28/202205/28, 05/21/2021, 05/18/2021, Additional history exists Dexa [...] on File Type Date Recorded Patient Body Line Finisher Expl anation Advanced 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
--- OUTSIDE RECORDS SUMMARY | 2023-06-18 03:03 | External Medical Summary | Summary of Care ---
Author Name Unknown Organization [place] [address] Care Team Providers Care Motorized Squad Sergeant Name Role Phone Marcela Pinto MD Primary Care Provider + Reason for Visit * Reason Onset Date Comments Status Check 08/16/2021 Encounter Details Date Type Department Care Team Description 08/16/2021 Telephone General Internal Medicine [facility] 200 [facility] [place] [address] Marcela Pinto MD [address] [place] [address] [phone] Status Check Allergies Active Allergy Reactions Severity Noted Date Comments Valsartan 07/10/2010 Enalapril 05/21/2006 Escitalopram Oxalate Nausea/vomiting 10/11/2009 Nauseated Iodinated Diagnostic Agents Nausea/vomiting 05/2010 IV Contrast Iodine Hives 12/18/2009 IV Contrast Metoprolol Tartrate 11/18/2006 Made pulse low [place] Oil-Black Currant-Vit E 07/10/2010 Verapamil 03/21/2004 Bupropion [...] 0 11/26/2017 Active glimepiride (AMARYL) 4 MG TabletIndications:T ype [...] Oral Tablet Extended Release 24 Hour (toPROL XL)Indications:Art Therapist akin 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),NICM (nonischemic cardiomyopathy) ([facility]),Presence of Watchman left atrial appendage [...] for 10 days. 10 Tab 0 08/17/2021 1 Active Ciprofloxacin HCl 500 MG Oral Tablet (Cipro) Take 1 Tab by mouth every 12 hours. 20 Tab 0 08/11/2021 1 Discontinue d(Medicatio n List Clean Up) documented as of this [...] Hypoxemia 10/08/2011 10/30/2015 Genetic Sleep Disorder Research Other*[id number] 07/25/2011 05/15/2016 Diverticulitis of colon 07/25/2011 01/06/20 [...] mRNA, LNP-s, No Pre serve, 2-Dose Series ([employer]) 12/22/2020,2020 Hepatitis B, 20+ yrs 10/01/2017,04/21/2017,03/20 Pneumococcal [...] encounter Miscellaneous Notes * Addendum Note - Mayelin Chaves RPh - 08/17/2021 1:47 PM EDT Addended by: MAYELIN CHAVES on: 08/17/2021 01:47 PM Modules accepted: Orders * Telephone Encounter - Mayelin Chaves RPh - 08/17/2021 1:19 PM EDT Called patient to advise on change of medication. Counseled patient to take probiotic and to avoid strenuous activity while taking this medication. Patient understood. Thanks, Mayelin Chaves, PharmD Clinical Pharmacist Telepharmacy 08/17/2021, 1:20 PM * Telephone Encounter - Marcela Pinto MD [...] patient. Thanks, Mayelin Chaves PharmD Clinical Pharmacist Telepharmacy 08/16/2021, 1:12 PM * Telephone Encounter - Em Duarte PHARM Tech - 08/16/2021 12:32 PM EDT Pt calling to inform doctor that the pt's medication is on backorder and requesting an alternative.. Did confirm this information with the pharmacy. Pt's current insurance information is as follows: Patient name: Nina Harrington ID number: [id number] BIN number: [id number] PCN number: [id number] Group number: [id number] Subscriber name: Nina Harrington Primary or Secondary Insurance:Primary Medication: Ciprofloxacin HCl 500 MG Oral Tablet (Cipro) Reason for Request: med on b/.o Pharmacy and phone number: [facility] [address] [place] [address] Rx plan and phone number: [facility] [phone] What alternative medications does the pharmacy have in stock?: n/a List of medications pt has tried and failed: n/a Thank you, Em Duarte, Sheet Sewer [place] 08/16/2021,12:32 PM * Telephone Encounter - Janny Mercedes PHARM Tech - 08/16/2021 11:34 AM EDT Pt calling to request cipro. Informed pt that RX is available at their pharmacy. Pt verbalized understanding and stated they will check with their pharmacy regarding this medication. Thank you, Janny Mercedes Sheet Sewer [place] 08/16/2021, 11:36 AM documented in this encounter Plan of Treatment Upcoming Encounters Date Type Specialty Care Team Description 08/20/2021 Office Visit Internal Medicine David Duke PA-C 200 [facility] [place] [address] [phone] 08/21/2021 Immunization [place], Covid19 Vaccine [address] [place] [address] [phone] 08/23/2021 Office Visit Cardiology Dulce Merino CRNP [address] [place] [address] [phone] Health Maintenance Due Date Last Done Comments Zoster Vaccines (2 of 3) 08/31/2012 07/06/2012 COVID-19 Vaccine (3 - Pfizer risk 3-dose series) 01/19/2021 12/22/2020, 2020 DIABETES-HGBA1C EVERY 6 MONTHS 09/09/2021 03/09/2021, 12/05/2020, 08/10/2020, Additional history exists DIABETES-FOOT EXAM 12/21/2021 12/21/2020, 0 10/19/2019, 01/05/2019, Additional history exists CKD GFR USE SMARTSET 52844 01/17/202207/19, 06/20/2021, 06/12/2021, Additional history exists CKD PHOS USE SMARTSET 59963 03/09/2022 03/09/2021, 0 03/22/2019 DIABETES-EYE EXAM 03/26/2022 03/26/2021, , 08/10/2019, Additional history exists CKD HGB USE SMARTSET 65789 05/28/202205/28, 05/21/2021, 05/18/2021, Additional history exists Dexa [...] Documents on File Type Date Recorded Patient Card Tape Converter 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
--- OUTSIDE RECORDS SUMMARY | 2023-06-18 03:03 | External Medical Summary | Summary of Care ---
Author Name Unknown Organization [place] [address] Care Team Providers Care Industrial Recruiter Name Role Phone Marcela Pinto MD Primary Care Provider + Reason for Visit * Reason Onset Date Comments Status Check 08/16/2021 Encounter Details Date Type Department Care Team Description 08/16/2021 Telephone General Internal Medicine [facility] 200 [place] [address] Marcela Pinto MD [address] [place] [address] [phone] Status Check Allergies Active Allergy Reactions Severity Noted Date Comments Valsartan 07/10/2010 Enalapril 05/21/2006 Escitalopram Oxalate Nausea/vomiting 10/11/2009 Nauseated Iodinated Diagnostic Agents Nausea/vomiting 05/2010 IV Contrast Iodine Hives 12/18/2009 IV Contrast Metoprolol Tartrate 11/18/2006 Made pulse low [place] Oil-Black Currant-Vit E 07/10/2010 Verapamil 03/21/2004 [...] fraction and diastolic dysfunction (HCC),NICM (nonischemic cardiomyopathy) ([facility] [...] :Asthma with severity to be determined,COPD, moderate ([facility]) TAKE 1 PUFF BY MOUTH 4 [...] Hypoxemia 10/08/2011 10/30/2015 Genetic Sleep Disorder Research Other*[id number] 07/25/2011 05/15/2016 Diverticulitis of colon 07/25/2011 01/06/20 [...] mRNA, LNP-s, No Pre serve, 2-Dose Series ([employer]) 12/22/2020,2020 Hepatitis B, 20+ yrs 10/01/2017,04/21/2017,03/20 Pneumococcal [...] encounter Miscellaneous Notes * Telephone Encounter - Mayelin Chaves RPh - 08/17/2021 1:19 PM EDT Called patient to advise on change of medication. Counseled patient to take probiotic and to avoid strenuous activity while taking this medication. Patient understood. Thanks, Vadim BobD Clinical Pharmacist Telepharmacy 08/17/2021, 1:20 PM * [...] follows: Patient name: Nina Harrington ID number: [id number] BIN number: [id number] PCN number: [id number] Group number: [id number] Subscriber name: Nina Harrington Primary or Secondary Insurance:Primary Medication: Ciprofloxacin HCl 500 MG Oral Tablet (Cipro) Reason for Request: med on b/.o Pharmacy and phone number: [facility] [address] [place] [address] Rx plan and phone number: corey cervantes [phone] What alternative medications does the pharmacy have in stock?: n/a List of medications pt has tried and failed: n/a Thank you, Em Duarte, Information Analyst [employer] 08/16/2021,12:32 PM * Telephone Encounter - Janny Mercedes PHARM Tech - 08/16/2021 11:34 AM EDT Pt calling to request cipro. Informed pt that RX is available at their pharmacy. Pt verbalized understanding and stated they will check with their pharmacy regarding this medication. Thank you, Janny Mercedes Information Analyst [employer] 08/16/2021, 11:36 AM documented in this encounter Plan of Treatment Upcoming Encounters Date Type Specialty Care Team Description 08/20/2021 Office Visit Internal Medicine David Duke PA-C [address] [place] [address] [phone] 08/21/2021 Immunization [place], Covid19 Vaccine [address] [place] [address] [phone] 08/23/2021 Office Visit Cardiology Dulce Merino CRNP [address] [facility] [place] [address] [phone] Health Maintenance Due Date Last Done Comments Zoster Vaccines (2 of 3) 08/31/2012 07/06/2012 COVID-19 Vaccine (3 - Pfizer risk 3-dose series) 01/19/2021 12/22/2020, 2020 DIABETES-HGBA1C EVERY 6 MONTHS 09/09/2021 03/09/2021, 12/05/2020, 08/10/2020, Additional history exists DIABETES-FOOT EXAM 12/21/2021 12/21/2020, 0 10/19/2019, 01/05/2019, Additional history exists CKD GFR USE SMARTSET 68880 01/17/202207/19, 06/20/2021, 06/12/2021, Additional history exists CKD PHOS USE SMARTSET 51673 03/09/2022 03/09/2021, 0 03/22/2019 DIABETES-EYE EXAM 03/26/2022 03/26/2021, , 08/10/2019, Additional history exists CKD HGB USE SMARTSET 99906 05/28/202205/28, 05/21/2021, 05/18/2021, Additional history exists Dexa [...] Documents on File Type Date Recorded 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
--- OUTSIDE RECORDS SUMMARY | 2023-06-18 03:03 | External Medical Summary | Summary of Care ---
Author Name Unknown Organization [place] [address] Care Team Providers Care Band Manager Name Role Phone Marcela Pinto MD Primary Care Provider + Reason for Visit * Reason Onset Date Comments Status Check 08/16/2021 Encounter Details Date Type Department Care Team Description 08/16/2021 Telephone General Internal Medicine [facility] [address] [facility] [place] [address] Marcela Pinto MD [address] [place] [address] [phone] Status Check Allergies Active Allergy Reactions Severity Noted Date Comments Valsartan 07/10/2010 Enalapril 05/21/2006 Escitalopram Oxalate Nausea/vomiting 10/11/2009 Nauseated Iodinated Diagnostic Agents Nausea/vomiting 05/2010 IV Contrast Iodine Hives 12/18/2009 IV Contrast Metoprolol Tartrate 11/18/2006 Made pulse low [place] Oil-Black Currant-Vit E 07/10/2010 Verapamil 03/21/2004 Bupropion [...] determined,COPD, moderate ([facility]) TAKE 1 PUFF BY MOUTH 4 [...] Hypoxemia 10/08/2011 10/30/2015 Genetic Sleep Disorder Research Other*[id number] 07/25/2011 05/15/2016 Diverticulitis of colon 07/25/2011 01/06/20 [...] mRNA, LNP-s, No Pre serve, 2-Dose Series ([employer]) 12/22/2020,2020 Hepatitis B, 20+ yrs 10/01/2017,04/21/2017,03/20 Pneumococcal [...] follows: Patient name: Nina Harrington ID number: [id number] BIN number: [id number] PCN number: [id number] Group number: [id number] Subscriber name: Nina Harrington Primary or Secondary Insurance:Primary Medication: Ciprofloxacin HCl 500 MG Oral Tablet (Cipro) Reason for Request: med on b/.o Pharmacy and phone number: [facility] [address] [place] [address] Rx plan and phone number: [facility] [employer] [phone] What alternative medications does the pharmacy have in stock?: n/a List of medications pt has tried and failed: n/a Thank you, Em Duarte, Jewelry Drilling Machine Operator [employer] 08/16/2021,12:32 PM * Telephone Encounter - Janny Mercedes PHARM Tech - 08/16/2021 11:34 AM EDT Pt calling to request cipro. Informed pt that RX is available at their pharmacy. Pt verbalized understanding and stated they will check with their pharmacy regarding this medication. Thank you, Janny Mercedes Jewelry Drilling Machine Operator [employer] 08/16/2021, 11:36 AM documented in this encounter Plan of Treatment Upcoming Encounters Date Type Specialty Care Team Description 08/20/2021 Office Visit Internal Medicine David Duke PA-C [address] [place] [address] [phone] 08/21/2021 Immunization [place], Covid19 Vaccine [address] [place] [address] [phone] 08/23/2021 Office Visit Cardiology Dulce Merino CRNP [address] [facility] [place] [address] Health Maintenance Due Date Last Done Comments Zoster Vaccines (2 of 3) 08/31/2012 07/06/2012 COVID-19 Vaccine (3 - Pfizer risk 3-dose series) 01/19/2021 12/22/2020, 2020 DIABETES-HGBA1C EVERY 6 MONTHS 09/09/2021 03/09/2021, 12/05/2020, 08/10/2020, Additional history exists DIABETES-FOOT EXAM 12/21/2021 12/21/2020, 0 10/19/2019, 01/05/2019, Additional history exists CKD GFR USE SMARTSET 10663 01/17/202207/19, 06/20/2021, 06/12/2021, Additional history exists CKD PHOS USE SMARTSET 72534 03/09/2022 03/09/2021, 0 03/22/2019 DIABETES-EYE EXAM 03/26/2022 03/26/2021, , 08/10/2019, Additional history exists CKD HGB USE SMARTSET 30714 05/28/202205/28, 05/21/2021, 05/18/2021, Additional history exists Dexa [...] Documents on File Type Date Recorded Patient Agricultural Agent Expl 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
--- OUTSIDE RECORDS SUMMARY | 2023-06-18 03:03 | External Medical Summary | Summary of Care ---
Author Name Unknown Organization [facility] Address [facility] [place] [address] Care Team Providers Care Video Game Repair Technician Name Role Phone Marcela Pinto MD Primary Care Provider + Encounter Details Date Type Department Care Team Description 08/21/2021 Immunization [place] [address] [place] [id number] [facility] Covid Vaccine [address] [place] [id number] Encounter for immunization* Allergies Active Allergy Reactions Severity Noted Date Comments Valsartan 07/10/2010 Enalapril 05/21/2006 Escitalopram Oxalate Nausea/vomiting 10/11/2009 Nauseated Iodinated Diagnostic Agents Nausea/vomiting 05/2010 IV Contrast Iodine Hives 12/18/2009 IV Contrast Metoprolol Tartrate 11/18/2006 Made pulse low [place] Oil-Black Currant-Vit E 07/10/2010 Verapamil 03/21/2004 Bupropion Hcl 10/30/2009 Makes pt sick in the stomach documented as of this encounter (statuses as of 08/21/2021) Medications Medication Sig Dispensed Refills Start Date [...] than 7.5% ([facility]) Take 2 mg by mouth daily before [...] 0 Active Lisinopril 2.5 MG Oral Tablet (ivil) Take 2.5 mg by mouth daily. 0 [...] as of this encounter (statuses as of 08/21/2021) Active Problems Problem Noted Date Subclinical hyperthyroidism [...] 6:18 hrs, SROEN 18.7 Refusing CPAP AHP Allergic rhinitis 07/19/2011 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 Asthma with severity to be determined Generalized osteoarthritis documented as of this encounter (statuses as of 08/21/2021) Resolved Problems Problem Noted Date Resolved Date [...] Hypoxemia 10/08/2011 10/30/2015 Genetic Sleep Disorder Research Other*[id number] 07/25/2011 05/15/2016 Diverticulitis of colon 07/25/2011 01/06/20 [...] as of this encounter (statuses as of 08/21/2021) Immunizations Name Administration Dates Next Due COVID-19 mRNA, LNP-s, No Pre serve, 2-Dose Series ([employer]) 08/21/2021,12/22/2020,2020 Hepatitis B, 20+ yrs 10/01/2017,04/21/2017,03/20 Pneumococcal [...] Date Type Specialty Care Team Description 08/23/2021 Office Visit Cardiology Dulce Merino CRNP [address] [place] [address] 11/15/2021 Office Visit Internal Medicine Marcela Pinto MD [address] [place] [address] Health Maintenance Due Date Last Done Comments Zoster Vaccines (2 of 3) 08/31/2012 07/06/2012 DIABETES-HGBA1C EVERY 6 MONTHS 09/09/2021 03/09/2021, 12/05/2020, 08/10/2020, Additional history exists DIABETES-FOOT EXAM 12/21/2021 12/21/2020, 0 10/19/2019, 01/05/2019, Additional history exists CKD GFR USE SMARTSET 92041 01/17/202207/19, 06/20/2021, 06/12/2021, Additional history exists CKD PHOS USE SMARTSET 60157 03/09/2022 03/09/2021, 0 03/22/2019 DIABETES-EYE EXAM 03/26/2022 03/26/2021, , 08/10/2019, Additional history exists CKD HGB USE SMARTSET 53269 05/28/202205/28, 05/21/2021, 05/18/2021, Additional history exists Dexa Scan 08/08/2025 08/08/2020, 04/13, 06/19/2010, Additional history exists DTaP,Tdap,and Td Vaccines (2 - Td or Tdap) 06/04/2028 06/04/2018, 02/28/2009 Pneumococcal Vaccine: 65+ Years Completed 03/28/2015, 05/21/2006 Influenza Vaccine (FLU shot) Completed , 06/22/2020, 07/09/2019, Additional history exists COVID-19 Vaccine Completed 08/21/2021, 09/2021, 2020 MENINGOCOCCAL (MENACTRA/MENVEO) Aged Out No longer eligible based on patient's age to complete this topic documented as of this encounter Implants Not on filedocumented as of this encounter Visit Diagnoses Diagnosis Encounter for immunization- Primary Need for other specified prophylactic vaccination against single bacterial disease documented in this encounter Advance Directives Documents on File Type Date Recorded Patient Community Health Education Coordinator Expl 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 Directive Advanced Directive Advanced Directive Care Teams Video Game Repair Technician Relationship Specialty Start Date End Date Marcela Pinto MD [address] [facility] [place] [place] [address] PCP - General Internal Medicine 08/04/14 documented as of this encounter
--- OUTSIDE RECORDS SUMMARY | 2023-06-18 03:04 | External Medical Summary | Summary of Care ---
Author Name Unknown Organization [place] [address] Care Team Providers Care Textile Machine Maintenance Mechanic Name Role Phone Marcela Pinto MD Primary Care Provider + Reason for Visit * Reason Onset Date Comments Status Check 08/16/2021 Encounter Details Date Type Department Care Team Description 08/16/2021 Telephone General Internal Medicine [facility] [address] [place] [address] Marcela Pinto MD [address] [place] [address] [phone] Status Check Allergies Active Allergy Reactions Severity Noted Date Comments Valsartan 07/10/2010 Enalapril 05/21/2006 Escitalopram Oxalate Nausea/vomiting 10/11/2009 Nauseated Iodinated Diagnostic Agents Nausea/vomiting 05/2010 IV Contrast Iodine Hives 12/18/2009 IV Contrast Metoprolol Tartrate 11/18/2006 Made pulse low [place] Oil-Black Currant-Vit E 07/10/2010 Verapamil 03/21/2004 Bupropion [...] fraction and diastolic dysfunction (HCC),NICM (nonischemic cardiomyopathy) ([facility]),Presence of Watchman left atrial appendage [...] Hypoxemia 10/08/2011 10/30/2015 Genetic Sleep Disorder Research Other*[id number] 07/25/2011 05/15/2016 Diverticulitis of colon 07/25/2011 01/06/20 [...] mRNA, LNP-s, No Pre serve, 2-Dose Series ([facility]) 12/22/2020,2020 Hepatitis B, 20+ yrs 10/01/2017,04/21/2017,03/20 Pneumococcal [...] encounter Miscellaneous Notes * Telephone Encounter - Janny Mercedes PHARM Tech - 08/16/2021 11:34 AM EDT Pt calling to request cipro. Informed pt that RX is available at their pharmacy. Pt verbalized understanding and stated they will check with their pharmacy regarding this medication. Thank you, Janny Mercedes [employer] [facility] 08/16/2021, 11:36 AM documented in this encounter Plan of Treatment Upcoming Encounters Date Type Specialty Care Team Description 08/20/2021 Office Visit Internal Medicine David Duke PA-C [address] [place] [address] [phone] 08/21/2021 Immunization [place], Covid19 Vaccine [address] [place] [address] [phone] 08/23/2021 Office Visit Cardiology Dulce Merino CRNP [address] [facility] [place] [address] Health Maintenance Due Date Last Done Comments Zoster Vaccines (2 of 3) 08/31/2012 07/06/2012 COVID-19 Vaccine (3 - Pfizer risk 3-dose series) 01/19/2021 12/22/2020, 2020 DIABETES-HGBA1C EVERY 6 MONTHS 09/09/2021 03/09/2021, 12/05/2020, 08/10/2020, Additional history exists DIABETES-FOOT EXAM 12/21/2021 12/21/2020, 0 10/19/2019, 01/05/2019, Additional history exists CKD GFR USE SMARTSET 62443 01/17/202207/19, 06/20/2021, 06/12/2021, Additional history exists CKD PHOS USE SMARTSET 05141 03/09/2022 03/09/2021, 0 03/22/2019 DIABETES-EYE EXAM 03/26/2022 03/26/2021, , 08/10/2019, Additional history exists CKD HGB USE SMARTSET 05490 05/28/202205/28, 05/21/2021, 05/18/2021, Additional history exists Dexa [...] Documents on File Type Date Recorded Patient Optical Advisor Expl 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
--- OUTSIDE RECORDS SUMMARY | 2023-06-18 03:04 | External Medical Summary | Summary of Care ---
Author Name Unknown Organization [place] [address] Care Team Providers Care Director Patient Accounting Name Role Phone Marcela Pinto MD Primary Care Provider + Reason for Visit * Reason Onset Date Comments Adult Annual Wellness Visit, Subsequent Visit Adult Annual Wellness Visit, Subsequent Visit Encounter Details Date Type Department Care Team Description 08/08/2021 Nurse Only Ancillary [facility] [address] [place] [address] Im, Nurse Annual Wellness [facility] [address] [place] [address] [phone] Adult Annual Wellness Visit, Subsequent Vi... Allergies Active Allergy Reactions Severity Noted Date Comments Valsartan 07/10/2010 Enalapril 05/21/2006 Escitalopram Oxalate Nausea/vomiting 10/11/2009 Nauseated Iodinated Diagnostic Agents Nausea/vomiting 05/2010 IV Contrast Iodine Hives 12/18/2009 IV Contrast Metoprolol Tartrate 11/18/2006 Made pulse low [place] Oil-Black Currant-Vit E 07/10/2010 Verapamil 03/21/2004 Bupropion Hcl 10/30/2009 Makes pt sick in the stomach documented as of this encounter (statuses as of 08/08/2021) Medications Medication Sig Dispensed Refills Start Date [...] RESCUE KIT: Take for Colds. 0 Active Combivent Respimat 20-100 MCG/ACT Inhalation Aerosol Solution (Ipratropium-Albutero l)Indications:Asthma with severity to be determined,COPD, moderate (HCC) TAKE 1 PUFF BY MOUTH 4 TIMES A DAY 12 g 3 12/14/2020 Active Lisinopril 2.5 MG Oral Tablet (Prinivil) [...] Pain, Mild. 120 Tab 0 07/18/2021 Active documented as of this encounter (statuses as of 08/08/2021) Active Problems Problem Noted Date Chronic kidney [...] as of this encounter (statuses as of 08/08/2021) Resolved Problems Problem Noted Date Resolved Date [...] Hypoxemia 10/08/2011 10/30/2015 Genetic Sleep Disorder Research Other*[id number] 07/25/2011 05/15/2016 Diverticulitis of colon 07/25/2011 01/06/20 [...] as of this encounter (statuses as of 08/08/2021) Immunizations Name Administration Dates Next Due COVID-19 mRNA, LNP-s, No Pre serve, 2-Dose Series (Humedica) 12/22/2020,2020 Hepatitis B, 20+ yrs 10/01/2017,04/21/2017,03/20 Pneumococcal [...] Sign Reading Time Taken Comments Blood Pressure 130/72 08/08/2021 2:25 PM EDT Pulse 60 08/08/2021 2:25 PM EDT Temperature 36.9 C (98.5 F) 08/08/2021 2 :25 PM EDT Respiratory Rate - - Oxygen Saturation 97% 08/08/2021 2:2 5 PM EDT Inhaled Oxygen Concentration - - Weight 113.9 kg (251 lb) 08/08/2021 2:2 5 PM EDT done at home this AM Height 165.1 cm (5' 5") 08/08/2021 2:2 5 PM EDT Body Mass Index 41.77 08/08/2021 2:25 PM EDT documented in this encounter Patient Instructions * Patient Instructions* Renetta Michaels RN - 08/08/2021 2:52 PM EDT Hi Ms. Harrington, As your primary care physician, I know that regular visits with my patients who have several chronic conditions can go a long way in helping you stay healthy. Many times, the clinic team and I are in touch with you and/or other care team members between office visits to adjust medications, discuss any changes in your health, and review our care plan to make sure it is still meeting your needs. I am dedicated to helping you take a more active role in your overall care. It is important that there are resources available to you, so I created a personalized plan of care with a Health Calendar for you, which is included on the next page of this letter. Below is a list that summarizes your electronic health record: Health Maintenance Due: Health Maintenance Due Topic Date Due Zoster Vaccines (2 of 3) 08/31/2012 COVID-19 Vaccine (3 - Pfizer risk 3-dose series) 01/19/2021 *DEPRESSION SCREENING,ANNUAL FOR PTS 12 AND OVER Never done Current Medication List: (as of Last Office/Telemedicine Visit: No Previous Office/Telemedicine Visits) Current Outpatient Medications Medication Sig Dispense Refill [...] MULTIVITAMIN WOMEN) TABS one pill each day glimepiride (AMARYL) 4 MG Tablet Take 2 [...] as needed for Nausea. dissolve on tongue. Combivent Respimat 20-100 MCG/ACT Inhalation Aerosol Solution (Ipratropium- Albuterol) TAKE 1 PUFF BY MOUTH 4 TIMES A DAY 12 g 3 Lisinopril 2.5 MG Oral Tablet (Prinivil) Take [...] Friday, and Friday only. 30 Tab 3 Promethazine HCl 25 MG Oral Tablet (Phenergan) TAKE 1 TABLET BY MOUTH EVERY 6 HOURS NEEDED FOR NAUSEA 60 Tab 2 [facility] SENNA 8.6 MG Tablet TAKE 2 TABLETS BY MOUTH EVERY EVENING FOR 10 DAYS NEEDED FOR CONSTIPATION 0 doxycycline 100 MG Tablet Take 100 mg by mouth 2 times a day. RESCUE KIT: Take for Colds. Advair HFA 230-21 MCG/ACT Inhalation Aerosol (fluticasone-Salmeterol) Inhale 2 Puffs by mouth 2times a day. Glimepiride 2 MG Oral Tablet (Amaryl) TAKE 1 TABLET BY MOUTH EVERY DAY WITH BREAKFAST 30 Tab 2 HYDROcodone-Acetaminophen 5-325 MG Oral Tablet Take 1 Tab by mouth every 6 hours as needed for Pain, Mild. 120 Tab 0 No current facility-administered medications for this visit. Current List of Allergies: (as of Last Office/Telemedicine Visit: No Previous Office/Telemedicine Visits) Review of patient's allergies indicates: Allergen Reactions Diovan [Valsartan] Enalapril Escitalopram Oxalate Nausea/vomiting Nauseated Iodinated Diagnostic Agents Nausea/vomiting IV Contrast Iodine Hives IV Contrast Metoprolol Tartrate Made pulse low [place] Oil-Black Currant-Vit E Verapamil Wellbutrin [Bupropion Hcl] Makes pt sick in the stomach Most Recent Lab Results: Results for orders placed or performed in visit on 08/07/21 LIPID PANEL WITH DIRECT LDL IF TG IS HIGH Result Value Ref Range Triglycerides 149 <=174 mg/dL Cholesterol 150 <200 mg/dL HDL Cholesterol 44 (L) >49 mg/dL Non-HDL Cholesterol 106 <=159 mg/dL LDL Cholesterol 76 <=129 mg/dL HEPATIC FUNCTION PANEL Result Value Ref Range Albumin 3.9 3.8 - 5.0 g/dL AST 15 10 - 35 U/L Alkaline Phosphatase 118 35 - 130 U/L ALT 11 10 - 35 U/L Bilirubin, Total 0.3 <=1.2 mg/dL Bilirubin, Direct <0.2 0.0 - 0.3 mg/dL Protein 6.4 6.0 - 8.3 g/dL *Note: Due to a large number of results and/or encounters for the requested time period, some results have not been displayed. A complete set of results can be found in Results Review. Sincerely, Marcela Pinto MD 08/08/2021 [facility] Calendar (as of Last Office/Telemedicine Visit: No Previous Office/Telemedicine Visits) Check off each item when done! Due Now or Overdue Care needs: Frequency: Last completed: Due next: Zoster (Shingles) Vaccine (#2[2 of 3) Series 07/06/2012 08/31/2012 Covid-19 Vaccine (#3[3 - Pfizer risk 3-dose series) Series 12/22/2020 01/19/2021 Screen For Depression Yearly Once 06/24/2021 Due in 3 Months Care needs: Frequency: Last completed: Due next: A1c Blood Sugar Test - Every 6 Months 6 Months 03/09/2021 09/09/2021 Due in 6 Months Care needs: Frequency: Last completed: Due next: Yearly Foot Exam 1 Year 12/21/2020 12/21/2021 Kidney Function Test (Kidney Disease) 6 Months 07/19/2021 01/17/2022 Due This Year or Later Care needs: Frequency: Last completed: Due next: Phosphorus Monitoring (Kidney Disease) 1 Year 03/09/2021 03/09/2022 Dilated Eye Exam (By Eye Doctor Or Retinal Camera) 1 Year 03/26/2021 03/26/2022 Anemia Monitoring (Kidney Disease) 1 Year 05/28/2021 05/28/2022 Bone Density 1 Year 08/08/2020 08/08/2025 Diphtheria, Tetanus & Pertussis Vaccines (#2[2 - Td) Series 06/04/2018 06/04/2028 As you look over the recommended services, be sure to check with your insurance company to determine what's covered. [employer] is a great tool that helps you review your medical record online, including test results, doctor notes and your health summary. You can also schedule appointments with me and other members of your care team, request prescription refills and ask for advice related to your medical conditions at [employer]Message Bus. documented in this encounter Progress Notes * Renetta Michaels RN - 08/08/2021 2:29 PM EDT AD8 Dementia Screening Interview Person answering questions: patient Remember, "Yes, a change" indicates that there has been a change in the last several years caused by cognitive (thinking and memory) problems 1. Problems with judgement (eg: problems making decisions, bad financial decisions, problems with thinking). No (0) 2. Less interest in hobbies/activities. No (0) 3. Repeats the same things over and over (questions, stories, or statements). No (0) 4. Trouble learning how to use a tool, appliance, or gadget (eg: VCR, computer, microwave, remote control). No (0) 5. Forgets correct month or year. No (0) 6. Trouble handling complicated financial affairs (eg: balancing checkbook, income taxes, paying bills). No (0) 7. Trouble remembering appointments. No (0) 8. Daily problems with thinking and/or memory. No (0) TOTAL AD8: 0 - AD8 Dementia Screening Score The final score is a sum of the number items marked "Yes, A Change". 0 - 1: Normal cognition; 2 or greater: Cognitive impairments is likely to be present - further testing required Adult Annual Wellness Visit: Nina Harrington is a 80 year old female who presents for an Adult Annual Wellness Visit. Depression Screening: Did the patient complete the screening questionnaire for Depression? Yes Is the patient's total score for Depression 15 or greater? No, no further intervention needed, unless requested by patient. Did the patient answer positively to the suicide question? No, no further intervention needed, unless requested by patient. In general, compared to other people your age, what would you say that your health is? Fair Ht Readings from Last 1 Encounters: 08/08/21 1.651 m (5' 5") Wt Readings from Last 1 Encounters: 08/08/21 113.9 kg (251 lb) Body Mass Index: BMI Greater than 30 Body mass index is 41.77 kg/m. BP Readings from Last 1 Encounters: 08/08/21 130/72 Medical/Surgical/Family History Reviewed: Yes Past Medical History: Diagnosis Date ACEI/ARB contraindicated Asthma Carpal tunnel syndrome DM type 2, goal: symptom mgmt (HCC) Generalized osteoarthritis HTN, goal below 140/90 Mixed dyslipidemia Past Surgical History: Procedure Laterality Date APPENDECTOMY W/OTHER PROCEDURE 1960 when removed gall bladder COLONOSCOPY, DIAGNOSTIC (RECTUM) 05/29/2016 poor prep, diverticulosis/inpt [facility] COLONOSCOPY, DIAGNOSTIC (RECTUM) 06/05/2017 diverticulosis, repeat 3 yrs/[facility] COLONOSCOPY, DIAGNOSTIC (RECTUM) 02/28/2018 adenomatous polyps, diverticulosis, repeat 3 yrs / [facility] COLONOSCOPY, DIAGNOSTIC (RECTUM) 05/08/2020 inflammatory tissue on bx, diverticulosis / [facility] COLONOSCOPY, W/BIOPSY 03/20/2012 hyperplastic polyps rpt 3 years. EGD, FLEXIBLE, DIAGNOSTIC 04/29/2014 normal/inpt [facility] EGD, FLEXIBLE, DIAGNOSTIC 05/29/2016 fundic submucosal mass/inpt [facility] EGD, FLEXIBLE, DIAGNOSTIC 05/08/2020 normal / [facility] EGD, FLEXIBLE,W/ENDOSCOPIC US 11/08/2016 inflammatory changes, stomach lesion, repeat EUS 1.5 yrs/[facility] EGD, FLEXIBLE,W/ENDOSCOPIC US 05/01/2018 stromal cell (smooth muscle) neoplasm, CBD dilation, repeat 2 yrs (needs OV prior)/[facility] EGD, FLEXIBLE,W/ENDOSCOPIC US 09/01/2020 leiomyoma / [facility] INCISIONAL HERNIA REPAIR, LAP, REDUCIBLE 09/29/2012 Repair of incarcerated supraumbilical (incisional) hernia with [facility]rium mesh 09/29/12 LIGATE/CUT OVIDUCT(S) REMOVAL OF TONSILS, AGE 12+ age 11 REMOVE GALLBLADDER 1960 SIGMOIDOSCOPY, DIAGNOSTIC 04/29/2014 stool in rectum/inpt [facility] SMALL BOWEL ENDOSCOPY, REMOVE FOREIGN BODY mesh from prior hernia surgery, wrapped around small bowel. small bowel surgery Family History Problem Relation Age of Onset Breast Cancer Mother Heart disease Father No Known Problems Sister COPD Brother COPD Brother COPD Brother Diabetes Aunt (Unspecified) Other (JORDNA) Son not diagnosed Lung Disorder Grandfather (Paternal) ?COPD vs asthma Asthma Daughter Has patient ever had cancer? No 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 Tobacco Use Smoking status: Never Smoker Smokeless tobacco: Never Used Substance Use Topics Alcohol use: No Vaping/E-Cigarette Use Vaping/E-Cigarette Use Never User Vaping/E-Cigarette Substances Nicotine No Other No Flavoring No THC No Cannabidiol (CBD) No Vaping/E-Cigarette Devices Disposable No Pre-filled or Refillable Cartridge No Refillable Tank No Pre-filled Pod No Tobacco/Alcohol screening completed today? Yes Hospital Care: Admissions (within the last year): Hospital, Location: [facility] Date of Admission: 05/05/21, 04/09/21, 02/24/21 ER within 30 days: No Does the patient have an Advance Directives/Living Will? No. Does the patient want information? Yes. Information given to patient Last Physical Exam: Last physical exam: 07/10/21 Does patient see primary provider regularly? Yes Does patient see other providers? Yes, Specialist Patient Care Team updated? Yes Review of patient's allergies indicates: Allergen Reactions Diovan [Valsartan] Enalapril Escitalopram Oxalate Nausea/vomiting Nauseated Iodinated Diagnostic Agents Nausea/vomiting IV Contrast Iodine Hives IV Contrast Metoprolol Tartrate Made pulse low [place] Oil-Black Currant-Vit E Verapamil Wellbutrin [Bupropion Hcl] Makes pt sick in the stomach Immunization History Administered Date(s) Administered COVID-19 mRNA, LNP-s, No Preserve, 2-Dose Series (Humedica) 2020, 12/22/2020 Hepatitis B, 20+ yrs 03/20/2017, 04/21/2017, 10/01/2017 Pneumococcal Conjugate Vacc, 13 Valent (Prevnar) 03/28/2015 Pneumococcal Polysaccharide PPV23 (Pneumovax) 05/21/2006 Seasonal Influenza, Quadrivalent Hd (Fluzone Hd) 07/10/2021 Seasonal Influenza, Quadrivalent, No Preserve, 6 Mons & Above, IM 07/30/2017, 06/16/2018 Seasonal Influenza, Quadrivalent, No Preserve, Adjuvanted, 65+ Yrs, IM 06/22/2020 Seasonal Influenza, Quadrivalent, No Preserve, IM 07/14/2015, 08/15/2016 Seasonal Influenza, Split, IIV3, With Preserve, Inj 08/12/2006, 09/01/2008, 07/18/2009, 08/16/2010, 08/06/2011, 06/26/2012, 07/26/2013, 08/04/2014 Seasonal Influenza, Trivalent, Adjuvanted, 65+ yrs 07/09/2019 TD, Preservative Free 02/28/2009 TDAP (age 10 and older)(Boostrix) 06/04/2018 Varicella Zoster Vaccine (Adult) 07/06/2012 Current Outpatient Medications Medication Sig Dispense Refill [...] MULTIVITAMIN WOMEN) TABS one pill each day glimepiride (AMARYL) 4 MG Tablet Take 2 [...] as needed for Nausea. dissolve on tongue. Combivent Respimat 20-100 MCG/ACT Inhalation Aerosol Solution (Ipratropium- Albuterol) TAKE 1 PUFF BY MOUTH 4 TIMES A DAY 12 g 3 Lisinopril 2.5 MG Oral Tablet (Prinivil) Take [...] Friday, and Friday only. 30 Tab 3 Promethazine HCl 25 MG Oral Tablet (Phenergan) TAKE 1 TABLET BY MOUTH EVERY 6 HOURS NEEDED FOR NAUSEA 60 Tab 2 [facility] SENNA 8.6 MG Tablet TAKE 2 TABLETS BY MOUTH EVERY EVENING FOR 10 DAYS NEEDED FOR CONSTIPATION 0 doxycycline 100 MG Tablet Take 100 mg by mouth 2 times a day. RESCUE KIT: Take for Colds. Advair HFA 230-21 MCG/ACT Inhalation Aerosol (fluticasone-Salmeterol) Inhale 2 Puffs by mouth 2times a day. Glimepiride 2 MG Oral Tablet (Amaryl) TAKE 1 TABLET BY MOUTH EVERY DAY WITH BREAKFAST 30 Tab 2 HYDROcodone-Acetaminophen 5-325 MG Oral Tablet Take 1 Tab by mouth every 6 hours as needed for Pain, Mild. 120 Tab 0 No current facility-administered medications for this visit. Patient Active Problem List Diagnosis Code Asthma [...] than 7.5% ([facility]) E11.9 Hypercalcemia E83.52 Elevated plasma metanephrines R79.89 Irritable bowel syndrome with constipation K58.1 Ischemic colitis ([facility]) K55.9 HECTOR (generalized anxiety disorder) F41.1 COPD, group B, 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 ([facility]) J44.9 Morbid obesity with BMI of 40.0-44.9, adult ([facility]) E66.01, Z68.41 Gastro-esophageal reflux disease without esophagitis K21.9 Paroxysmal atrial fibrillation ([facility]) I48.0 Chronic systolic heart failure ([facility]) I50.22 Pulmonary HTN ([facility]) I27.20 Chronic hypoxemic respiratory failure ([facility]) J96.11 Type 2 diabetes mellitus with stage 3a chronic kidney disease ([facility]) E11.22, N18.31 Chronic kidney disease, stage 3a ([facility]) N18.31 Medication Compliance: Patient is able to obtain all of her medications? Yes Patient takes medications as prescribed? Yes Patient manages own medications: Yes Patient uses a pill box? No Dental Exam: No no teeth on bottom and plate on top Eye Screening: Yes: Every 6 months Are you having trouble with hearing? Yes-a little-decline need for audiology referral Do you use an assistive device to help your hearing? No Exercise Screening: exercises 5-6 times per week-uses a stationary bike pedaling machine Nutrition Assessment: Eats a balanced diet and Eats three meals a day Pain Screening: Are you having any pain? Yes. Pain Scale: 4 out of 10; Location: back, When: all the time, Duration: years, Aggravating Factors: increased activity, Relieved by: rest, pain med Sleep Screening Tool 'STOP': 1. Do you snore? No 2. Do you feel fatigued during the day? Yes 3. Do you wake up feeling like you haven't slept? Yes 4. Have you been told you stop breathing at night? Yes 5. Do you gasp for air or choke while sleeping? Yes 6. Have you been told you have Sleep Apnea? Yes 7. Do you have high blood pressure or are on medication(s) to control high blood pressure? Yes SCORE: If you check YES to two or more questions, make a referral for Obstructive Sleep Apnea Pt currently uses 4L O2 at night-did not tolerate the c-pap Patient and Caregiver Support System: Patient lives alone Means of Transportation: Drives. Concerns identified are: hard to drive because is on O2 all the time-family usually takes her where she needs to go but pt is able to drive if needed and Family transports Patient lives in [place] Resources: help with fuel and food stamps Functional Status and ADL Skills: Has patient ever had an amputation? No Functional Assessment: 68- Cares for self: unable to carry on normal activity or active work Ambulation: Patient ambulates with assistive device. Cane, Walker and Wheelchair Dressing: Gets clothes and dresses without any assistance: Independent Able to move freely in chair or bed including turning over: Independent Repositioning (bed or chair): Not applicable Transfers: Independent Toileting: Goes to bathroom, uses toilet, arranges clothes and returns without any assistance: Independent Toileting: continent of bladder and continent of bowel-wears pad-has an occasional accidentFeeding:Self Bathing: Self; Shower Chair and showers inside tub, rubber mat in tub, steps out onto towel/rug Requires none assistance with ADLs. Instrumental ADL's: Shopping: Maximum Assistance Housekeeping: Moderate Assistance Handling Finances: Independent DME Vendor Name: [facility] Patient Fall Risk Assessment: Can the patient demonstrate that she can stand from a sitting position? Yes Has the patient had a fall within the last 6 months? No Does the patient have a problem with her gait or balance? No Does the patient take 4 or more prescription medicines? Yes Does the patient use sedatives or narcotics? Yes Fall Risk Factors Present: Uses more than 4 medications Uses sedatives or narcotics Uses assistive devices Older than age 70 Fam-Uq-qrg-Go Test: Time began at 2:00. Patient stood from sitting position and walked approximately 10 feet, returned and sat down. Total time for tns-zn-yra-go test was seconds. Wsk-Pl-wcc-Go Test completed? No, [id number] SOB breath today and requested not to stand up and walk Gender Specific Preventative Plan: Health Maintenance Topic Date Due Zoster Vaccines (2 of 3) 08/31/2012 COVID-19 Vaccine (3 - Pfizer risk 3-dose series) 01/19/2021 *DEPRESSION SCREENING,ANNUAL FOR PTS 12 AND OVER Never done DIABETES-HGBA1C EVERY 6 MONTHS 09/09/2021 DIABETES-FOOT EXAM 12/21/2021 CKD GFR USE SMARTSET 10685 01/17/2022 CKD PHOS USE SMARTSET 23073 03/09/2022 DIABETES-EYE EXAM 03/26/2022 CKD HGB USE SMARTSET 86106 05/28/2022 Dexa Scan 08/08/2025 DTaP,Tdap,and Td Vaccines (2 - Td) 06/04/2028 Influenza Vaccine (FLU shot) Completed Pneumococcal Vaccine: 65+ Years Completed MENINGOCOCCAL (MENACTRA/MENVEO) Aged Out Follow Up/ Referrals/Handouts: No further action needed Routine general medical examination at a health care facility (Primary) Type 2 diabetes mellitus with stage 3a chronic kidney disease, without long-term current use of insulin ([facility]) Type 2 diabetes mellitus with hemoglobin A1c goal of less than 7.5% ([facility]) Hemoglobin AIC Results: Lab Results Component Value Date/Time HEMOGLOBIN A1C - [facility] 7.2 (H) 03/09/2021 10:49 AM HEMOGLOBIN A1C - [facility] 6.6 (H) 08/26/2019 02:55 PM HEMOGLOBIN A1C - [facility] 6.8 (H) 07/27/2018 11:32 AM HEMOGLOBIN A1C - [facility] 6.2 01/14/2018 12:03 PM Continue to monitor diet and with current medication. Sleep apnea, obstructive Nocturnal hypoxia Continue with nightly use of O2 at 4L Pulmonary HTN (HCC) HTN, goal below 140/90 BP Readings from Last 3 Encounters: 08/08/21 130/72 07/12/21 102/62 07/10/21 94/60 Continue to monitor and with current medication Paroxysmal atrial fibrillation (HCC) Chronic systolic heart failure (HCC) Continue to monitor and with current medication. Continue to follow with cardiology Morbid obesity with BMI of 40.0-44.9, adult ([facility]) Continue to monitor diet. Discussed increasing activity-will try using her bike pedal exercise machine. Ischemic colitis (HCC) Irritable bowel syndrome with constipation Continue to monitor and with current medication. Continue to follow with gastroenterology Hyperlipidemia with target LDL less than 100 Lab Results Component Value Date/Time LDL (CALCULATED)-OUTSIDE LAB 75.20 12/05/2020 LDL (DIRECT MEASURE)-OUTSIDE LAB 85 12/05/2020 LDL CHOLESTEROL (CALCULATED) - [facility] 76 08/07/2021 09:05 AM LDL CHOLESTEROL (CALCULATED) - [facility] 95 07/27/2018 11:32 AM LDL CHOLESTEROL (DIRECT MEASURE) - [facility] 97 07/27/2018 11:32 AM Continue to monitor diet and with current medication. Generalized osteoarthritis Continue to monitor and with current medication Gastro-esophageal reflux disease without esophagitis Continue to monitor diet and with current medication HECTOR (generalized anxiety disorder) Pt scored a 3 on her depression screening today-no depression. Continue to monitor and reach out ifneeded. COPD, group B, 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 ([facility]) Chronic hypoxemic respiratory failure (HCC) Continue with use of O2 at 2L during dayt and 4L at night. Continue with current medications. Continue to follow with pulmonology Chronic kidney disease, stage 3a ([facility]) Continue to monitor and monitor BP-continue with current medication. Pt has both of her covid vaccines-already updated in her immunization record. Pt scheduled for her booster on 08/21/21. Patient has been verbally educated on the need or importance of Immunizations: shingrix Pt agreeable-rx pended and sent to Dr Pinto for review. Pt states that she lost her combivent inhaler-must have slipped out of her pocket. Had called her pharmacy and they told her it couldn't be refilled until 08/14/21. Called RAPHAEL Malik and was told that can call her insurance to see if will jeannette an override for1 time to get inhaler early. Told I would send a message to Dr Pinto for recommendations. Would patient like to schedule next AWV visit? Yes Renetta Michaels RN documented in this encounter Plan of Treatment Upcoming Encounters Date Type Specialty Care Team Description 08/20/2021 Office Visit Internal Medicine David Duke PA-C [address] [place] [id number] 08/21/2021 Immunization [facility] [place], Covid19 Vaccine [address] [place] [address] 08/23/2021 Office Visit Cardiology Dulce Merino CRNP [address] [facility] [place] [address] Health Maintenance Due Date Last Done Comments Zoster Vaccines (2 of 3) 08/31/2012 07/06/2012 COVID-19 Vaccine (3 - Pfizer risk 3-dose series) 01/19/2021 12/22/2020, 2020 *DEPRESSION SCREENING,ANNUAL FOR PTS 12 AND OVER 06/24/2021 DIABETES-HGBA1C EVERY 6 MONTHS 09/09/2021 03/09/2021, 12/05/2020, 08/10/2020, Additional history exists DIABETES-FOOT EXAM 12/21/2021 12/21/2020, 0 10/19/2019, 01/05/2019, Additional history exists CKD GFR USE SMARTSET 99257 01/17/202207/19, 06/20/2021, 06/12/2021, Additional history exists CKD PHOS USE SMARTSET 10054 03/09/2022 03/09/2021, 0 03/22/2019 DIABETES-EYE EXAM 03/26/2022 03/26/2021, , 08/10/2019, Additional history exists CKD HGB USE SMARTSET 10216 05/28/202205/28, 05/21/2021, 05/18/2021, Additional history exists Dexa [...] as of this encounter Visit Diagnoses Diagnosis Routine general medical examination at a health care facility- Primary Type 2 diabetes mellitus with stage 3a chronic kidney disease, without long-term current use of insulin (HCC) Type 2 diabetes mellitus with hemoglobin A1c goal of less than 7.5% (HCC) Sleep apnea, obstructive Obstructive sleep apnea (adult) (pediatric) Pulmonary HTN (HCC) Other chronic pulmonary heart diseases Paroxysmal atrial fibrillation (HCC) Atrial fibrillation Nocturnal hypoxia Hypoxemia Morbid obesity with BMI of 40.0-44.9, adult (HCC) Morbid obesity Ischemic colitis (HCC) Unspecified vascular insufficiency of intestine Irritable bowel syndrome with constipation Irritable bowel syndrome Hyperlipidemia with target LDL less than 100 Other and unspecified hyperlipidemia HTN, goal below 140/90 Unspecified essential hypertension Generalized osteoarthritis Generalized osteoarthrosis, unspecified site Gastro-esophageal reflux disease without esophagitis Esophageal reflux HECTOR (generalized anxiety disorder) Generalized anxiety disorder COPD, group B, 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 (HCC) Chronic systolic heart failure (HCC) Chronic systolic heart failure Chronic kidney disease, stage 3a (HCC) Chronic hypoxemic respiratory failure (HCC) Chronic respiratory failure Asthma with severity to be determined documented in this encounter Advance Directives Documents on File Type Date Recorded Patient Enrollment Representative Expl 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
--- OUTSIDE RECORDS SUMMARY | 2023-06-18 03:04 | External Medical Summary | Summary of Care ---
Author Name Unknown Organization [place] [address] Care Team Providers Care Orthodontic Band Maker Name Role Phone Marcela Pinto MD Primary Care Provider + Reason for Visit * Reason Onset Date Comments Advice 08/08/2021 Encounter Details Date Type Department Care Team Description 08/08/2021 Telephone General Internal Medicine [facility] [address] [place] [address] Marcela Pinto MD [address] [place] [address] [phone] Advice Allergies Active Allergy Reactions Severity Noted Date Comments Valsartan 07/10/2010 Enalapril 05/21/2006 Escitalopram Oxalate Nausea/vomiting 10/11/2009 Nauseated Iodinated Diagnostic Agents Nausea/vomiting 05/2010 IV Contrast Iodine Hives 12/18/2009 IV Contrast Metoprolol Tartrate 11/18/2006 Made pulse low [place] Oil-Black Currant-Vit E 07/10/2010 Verapamil 03/21/2004 Bupropion Hcl 10/30/2009 Makes pt sick in the stomach documented as of this encounter (statuses as of 08/09/2021) Medications Medication Sig Dispensed Refills Start Date [...] Oral Tablet Extended Release 24 Hour (toPROL XL)Indications:Film Splicer akin heart failure with reduced ejection fraction [...] A DAY 12 g 0 08/09/2021 Active Combivent Respimat 20-100 MCG/ACT Inhalation Aerosol Solution (Ipratropium-[place] rol)Indications:Ast hma with severity to be determined,COPD, moderate (HCC) TAKE 1 PUFF BY MOUTH 4 TIMES A DAY 12 g 3 12/14/2020 1 Discontinue d(Refill) documented as of this encounter (statuses as of 08/09/2021) Active Problems Problem Noted Date Chronic kidney [...] as of this encounter (statuses as of 08/09/2021) Resolved Problems Problem Noted Date Resolved Date [...] Hypoxemia 10/08/2011 10/30/2015 Genetic Sleep Disorder Research Other*[id number] 07/25/2011 05/15/2016 Diverticulitis of colon 07/25/2011 01/06/20 [...] as of this encounter (statuses as of 08/09/2021) Immunizations Name Administration Dates Next Due COVID-19 mRNA, LNP-s, No Pre serve, 2-Dose Series ([place]) 12/22/2020,2020 Hepatitis B, 20+ yrs 10/01/2017,04/21/2017,03/20 Pneumococcal [...] encounter Miscellaneous Notes * Telephone Encounter - Renetta Michaels RN - 08/09/2021 3:00 PM EDT Farhat from [facility] called back stating that the override to get her Combivent inhaler was finally approved-pt can pick it up at the pharmacy. Pt notified-states her daughter is going to the pharmacy now and will have her pick it up. Pt also notified that the shingrix vaccine rx was sent to the pharmacy and she can stop in at her convenience for her vaccine. Pt verbalized understanding. * Telephone Encounter - Renetta Michaels RN - 08/09/2021 10:40 AM EDT Call to [facility] kSARIA help desk at [phone]-to get override approval to refill her Combivent rx early. Was given a case number for pharmacy to watch for if it gets approved case # [id number]. Call to [facility] in [place]-case number given. He will watch for approval and will call me back at [phone]. * Telephone Encounter - Marcela Pinto MD - 08/09/2021 9:35 AM EDT Noted. Script sent to [facility]. Can try To override. Thanks. * Telephone Encounter - Renetta Michaels RN - 08/08/2021 4:05 PM EDT Pt was in for her Annual Wellness Visit today. States she had her Combivent inhaler in her pocket and it must have slipped out and she lost it. She had contacted her pharmacy and they said that they couldn't refill it until 08/14/21. She has her albuterol inhaler-which doesn't work as well-and her O2-states she turns it up to 3L as needed. Spokewith [facility] in [facility] we can contact her insurance to see if can get a one time override for early refill. Message to Dr Pinto to see if ok to contact insurance or if she should wait until next week. documented in this encounter Plan of Treatment Upcoming Encounters Date Type Specialty Care Team Description 08/20/2021 Office Visit Internal Medicine David Duke PA-C [address] [place] [address] [phone] 08/21/2021 Immunization [place], Covid19 Vaccine [address] [place] [address] [phone] 08/23/2021 Office Visit Cardiology Dulce Merino CRNP [address] [place] [address] [phone] Health Maintenance Due Date Last Done Comments Zoster Vaccines (2 of 3) 08/31/2012 07/06/2012 COVID-19 Vaccine (3 - Pfizer risk 3-dose series) 01/19/2021 12/22/2020, 2020 *DEPRESSION SCREENING,ANNUAL FOR PTS 12 AND OVER 06/24/2021 DIABETES-HGBA1C EVERY 6 MONTHS 09/09/2021 03/09/2021, 12/05/2020, 08/10/2020, Additional history exists DIABETES-FOOT EXAM 12/21/2021 12/21/2020, 0 10/19/2019, 01/05/2019, Additional history exists CKD GFR USE SMARTSET 43607 01/17/202207/19, 06/20/2021, 06/12/2021, Additional history exists CKD PHOS USE SMARTSET 40526 03/09/2022 03/09/2021, 0 03/22/2019 DIABETES-EYE EXAM 03/26/2022 03/26/2021, , 08/10/2019, Additional history exists CKD HGB USE SMARTSET 08993 05/28/202205/28, 05/21/2021, 05/18/2021, Additional history exists Dexa [...] Documents on File Type Date Recorded Patient Configuration Management Architect Expl anation Advanced 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
--- OUTSIDE RECORDS SUMMARY | 2023-06-18 03:04 | External Medical Summary | Summary of Care ---
Author Name Unknown Organization [place] [address] Care Team Providers Care Grinder Mill Operator Name Role Phone Marcela Pinto MD Primary Care Provider + Reason for Visit * Reason Onset Date Comments Order Request 08/08/2021 Zostavax Prescri ption Order Encounter Details Date Type Department Care Team Description 08/08/2021 Telephone General Internal Medicine [facility] [address] [place] [address] Marcela Pinto MD [address] [place] [address] [phone] Order Request (Zostavax Prescription Order) Allergies Active Allergy Reactions Severity Noted Date Comments Valsartan 07/10/2010 Enalapril 05/21/2006 Escitalopram Oxalate Nausea/vomiting 10/11/2009 Nauseated Iodinated Diagnostic Agents Nausea/vomiting 05/2010 IV Contrast Iodine Hives 12/18/2009 IV Contrast Metoprolol Tartrate 11/18/2006 Made pulse low [place] Oil-Black Currant-Vit E 07/10/2010 Verapamil 03/21/2004 Bupropion [...] Pain, Mild. 120 Tab 0 07/18/2021 Active Zoster Vac Recomb Adjuvanted 50 [...] Hypoxemia 10/08/2011 10/30/2015 Genetic Sleep Disorder Research Other*[id number] 07/25/2011 05/15/2016 Diverticulitis of colon 07/25/2011 01/06/20 [...] mRNA, LNP-s, No Pre serve, 2-Dose Series ([employer]) 12/22/2020,2020 Hepatitis B, 20+ yrs 10/01/2017,04/21/2017,03/20 Pneumococcal [...] Encounter - Renetta Michaels RN - 08/09/2021 3:04 PM EDT Pt notified-see other encounter. * Telephone Encounter - Marcela Pinto MD - 08/09/2021 9:36 AM EDT Script sent. * Telephone Encounter - Renetta Michaels RN - 08/08/2021 5:07 PM EDT Patient would like to receive the Zoster Vaccination. Due to their insurance, they need a prescription order to be filled at the pharmacy. Please sign/approve the pended medication order. Renetta Michaels RN documented in this encounter Plan of Treatment Upcoming Encounters Date Type Specialty Care Team Description 08/20/2021 Office Visit Internal Medicine David Duke PA-C [address] [place] [address] [phone] 08/21/2021 Immunization [place], Covid19 Vaccine [address] [place] [address] [phone] 08/23/2021 Office Visit Cardiology Dulce Merino CRNP [address] [facility] [place] [address] [phone] Health Maintenance Due Date Last Done Comments Zoster Vaccines (2 of 3) 08/31/2012 07/06/2012 COVID-19 Vaccine (3 - Pfizer risk 3-dose series) 01/19/2021 12/22/2020, 2020 *DEPRESSION SCREENING,ANNUAL FOR PTS 12 AND OVER 06/24/2021 DIABETES-HGBA1C EVERY 6 MONTHS 09/09/2021 03/09/2021, 12/05/2020, 08/10/2020, Additional history exists DIABETES-FOOT EXAM 12/21/2021 12/21/2020, 0 10/19/2019, 01/05/2019, Additional history exists CKD GFR USE SMARTSET 79329 01/17/202207/19, 06/20/2021, 06/12/2021, Additional history exists CKD PHOS USE SMARTSET 33118 03/09/2022 03/09/2021, 0 03/22/2019 DIABETES-EYE EXAM 03/26/2022 03/26/2021, , 08/10/2019, Additional history exists CKD HGB USE SMARTSET 38796 05/28/202205/28, 05/21/2021, 05/18/2021, Additional history exists Dexa [...] as of this encounter Visit Diagnoses Diagnosis Need for prophylactic vaccination and inoculation against varicella- Primary documented in this encounter Advance Directives Documents on File Type Date Recorded Patient Forestry Support Specialist Expl 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
--- OUTSIDE RECORDS SUMMARY | 2023-06-18 03:04 | External Medical Summary | Summary of Care ---
Author Name Unknown Organization [place] [address] Care Team Providers Care Civil Engineering Professional Name Role Phone Marcela Pinto MD Primary Care Provider + Reason for Visit * Reason Onset Date Comments Medication Refill 08/10/2021 Med Request 08/11/2021 Encounter Details Date Type Department Care Team Description 08/10/2021 Refill General Internal Medicine [facility] [address] [facility] [place] [address] Marcela Pinto MD 200 [place] [address] [phone] Allergies Active Allergy Reactions Severity Noted Date Comments Valsartan 07/10/2010 Enalapril 05/21/2006 Escitalopram Oxalate Nausea/vomiting 10/11/2009 Nauseated Iodinated Diagnostic Agents Nausea/vomiting 05/2010 IV Contrast Iodine Hives 12/18/2009 IV Contrast Metoprolol Tartrate 11/18/2006 Made pulse low [place] Oil-Black Currant-Vit E 07/10/2010 Verapamil 03/21/2004 Bupropion Hcl 10/30/2009 Makes pt sick in the stomach documented as of this encounter (statuses as of 08/11/2021) Medications Medication Sig Dispensed Refills Start Date [...] 180 days 1 Each 1 08/09/2021 Active Ciprofloxacin HCl 500 MG Oral Tablet (Cipro) Take 1 Tab by mouth every 12 hours. 20 Tab 0 08/10/2021 Active metroNIDAZOLE 500 MG Oral Tablet Take 1 Tab by mouth 3 times a day. 30 Tab 0 08/10/2021 Active documented as of this encounter (statuses as of 08/11/2021) Active Problems Problem Noted Date Chronic kidney [...] as of this encounter (statuses as of 08/11/2021) Resolved Problems Problem Noted Date Resolved Date [...] Hypoxemia 10/08/2011 10/30/2015 Genetic Sleep Disorder Research Other*[id number] 07/25/2011 05/15/2016 Diverticulitis of colon 07/25/2011 01/06/20 [...] as of this encounter (statuses as of 08/11/2021) Immunizations Name Administration Dates Next Due COVID-19 mRNA, LNP-s, No Pre serve, 2-Dose Series ([employer]) 12/22/2020,2020 Hepatitis B, 20+ yrs 10/01/2017,04/21/2017,03/20 Pneumococcal [...] encounter Miscellaneous Notes * Addendum Note - Renetta Gu LPN - 08/11/2021 12:48 PM EDT Addended by: RENETTA GU on: 08/11/2021 12:48 PM Modules accepted: Orders * Telephone Encounter - Renetta Gu LPN - 08/11/2021 12:48 PM EDT Pended. Will just need new pharmacy. * Telephone Encounter - Angelina Kilgore OSA - 08/11/2021 9:31 AM EDT Pt called in stated that she went to pharmacy to picker / packer medications and pharmacy made her aware they are unable to get : Medication Name: Ciprofloxacin Strength: 500 mg Asking if an alternative can be ordered to pharmacy. * Telephone Encounter - Mamta Ware CCMA - 08/10/2021 3:43 PM EDT Pt informed and verbalized understanding PARIS Arita * Telephone Encounter - Marcela Pinto MD - 08/10/2021 3:30 PM EDT Med signed.please inform. For any ongoing or worsening symptoms patient should see us in the office or go to emergency room depending on severity. * Telephone Encounter - Italia Nichols PHARM Tech - 08/10/2021 9:16 AM EDT For diverticulitis Pt calling requesting the following medication below that is listed as "Historical". The following information was provided: Medication Name: Ciprofloxacin Strength: 500 mg Directions: 1 Q12H for 10D Preferred Quantity: 20 Previous Prescriber: Kisha Pinto [id number] [address] [facility] [place] Medication Name: metronidazole Strength: 500 mg Directions: 1 PO TID for 10D Preferred Quantity: 30 Previous Prescriber: Winston Pinto Preferred Pharmacy: [id number] [address] [place] [place] Please review and approve if appropriate. Thank you, Italia Nichols CPhT Rum Processing Operator II [employer] 08/10/2021,9:19 AM Please review and approve if appropriate. Thank you, Italia Nichols CPhT Rum Processing Operator II [employer] 08/10/2021,9:18 AM documented in this encounter Plan of Treatment Upcoming Encounters Date Type Specialty Care Team Description 08/20/2021 Office Visit Internal Medicine David Duke PA-C [address] [place] [address] [phone] 08/21/2021 Immunization [place], Covid19 Vaccine [address] [place] [address] [phone] 08/23/2021 Office Visit Cardiology Dulce Merino CRNP [address] [facility] [place] [address] [phone] Health Maintenance Due Date Last Done Comments Zoster Vaccines (2 of 3) 08/31/2012 07/06/2012 COVID-19 Vaccine (3 - Pfizer risk 3-dose series) 01/19/2021 12/22/2020, 2020 DIABETES-HGBA1C EVERY 6 MONTHS 09/09/2021 03/09/2021, 12/05/2020, 08/10/2020, Additional history exists DIABETES-FOOT EXAM 12/21/2021 12/21/2020, 0 10/19/2019, 01/05/2019, Additional history exists CKD GFR USE SMARTSET 35602 01/17/202207/19, 06/20/2021, 06/12/2021, Additional history exists CKD PHOS USE SMARTSET 63565 03/09/2022 03/09/2021, 0 03/22/2019 DIABETES-EYE EXAM 03/26/2022 03/26/2021, , 08/10/2019, Additional history exists CKD HGB USE SMARTSET 37280 05/28/202205/28, 05/21/2021, 05/18/2021, Additional history exists Dexa [...] Documents on File Type Date Recorded Patient Salesperson Fashion Accessories Expl anation Advanced 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
--- OUTSIDE RECORDS SUMMARY | 2023-06-18 03:04 | External Medical Summary | Summary of Care ---
Author Name Unknown Organization [place] [address] Care Team Providers Care Hand Or Machine Paster Name Role Phone Marcela Pinto MD Primary Care Provider + Reason for Visit * Reason Onset Date Comments Medication Refill 08/10/2021 Med Request 08/11/2021 Encounter Details Date Type Department Care Team Description 08/10/2021 Telephone General Internal Medicine [facility] [address] [facility] [address] Marcela Pinto MD [address] [place] [address] [phone] Medication Refill; Med Request Allergies Active Allergy Reactions Severity Noted Date Comments Valsartan 07/10/2010 Enalapril 05/21/2006 Escitalopram Oxalate Nausea/vomiting 10/11/2009 Nauseated Iodinated Diagnostic Agents Nausea/vomiting 05/2010 IV Contrast Iodine Hives 12/18/2009 IV Contrast Metoprolol Tartrate 11/18/2006 Made pulse low [place] Oil-Black Currant-Vit E 07/10/2010 Verapamil 03/21/2004 [...] fraction and diastolic dysfunction (HCC),NICM (nonischemic cardiomyopathy) ([facility]),Chronic atrial fibrillation ([facility]),Hospital discharge follow-up,Presence of Watchman left atrial appendage closure device Take 1 Tab by mouth daily. 90 Tab 3 06/26/2021 Active Metoprolol Succinate ER 25 MG Oral Tablet Extended Release 24 Hour (toPROL XL)Indications:Chroni c 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 ([facility]),NICM (nonischemic cardiomyopathy) ([facility]),Presence of Watchman left atrial appendage [...] Asthma with severity to be determined,COPD, moderate ([facility] [...] Hypoxemia 10/08/2011 10/30/2015 Genetic Sleep Disorder Research Other*[id number] 07/25/2011 05/15/2016 Diverticulitis of colon 07/25/2011 01/06/20 [...] mRNA, LNP-s, No Pre serve, 2-Dose Series ([place]) 12/22/2020,2020 Hepatitis B, 20+ yrs 10/01/2017,04/21/2017,03/20 Pneumococcal [...] Miscellaneous Notes * Telephone Encounter - Angelina Kilgore OSA - 08/11/2021 9:31 AM EDT Pt called in stated that she went to pharmacy to machine operator hop picker medications and pharmacy made her aware they [...] Previous Prescriber: Kisha Pinto [id number] [address] [facility] Medication Name: metronidazole Strength: 500 mg Directions: 1 PO TID for 10D Preferred Quantity: 30 Previous Prescriber: Winston Pinto [id number] [address] [facility] Please review and approve if appropriate. Thank you, Italia Nichols CPhT Musical Instrument Maker II [facility] 08/10/2021,9:19 AM Please review and approve if appropriate. Thank you, Italia Nichols CPhT Musical Instrument Maker II [facility] 08/10/2021,9:18 AM documented in this encounter Plan of Treatment Upcoming Encounters Date Type Specialty Care Team Description 08/20/2021 Office Visit Internal Medicine David Duke PA-C [address] [place] [address] [phone] 08/21/2021 Immunization [place], Covid19 Vaccine [address] [place] [phone] 08/23/2021 Office Visit Cardiology Dulce Merino CRNP [address] [facility] [place] [address] Health Maintenance Due Date Last Done Comments Zoster Vaccines (2 of 3) 08/31/2012 07/06/2012 COVID-19 Vaccine (3 - Pfizer risk 3-dose series) 01/19/2021 12/22/2020, 2020 DIABETES-HGBA1C EVERY 6 MONTHS 09/09/2021 03/09/2021, 12/05/2020, 08/10/2020, Additional history exists DIABETES-FOOT EXAM 12/21/2021 12/21/2020, 0 10/19/2019, 01/05/2019, Additional history exists CKD GFR USE SMARTSET 97201 01/17/202207/19, 06/20/2021, 06/12/2021, Additional history exists CKD PHOS USE SMARTSET 13587 03/09/2022 03/09/2021, 0 03/22/2019 DIABETES-EYE EXAM 03/26/2022 03/26/2021, , 08/10/2019, Additional history exists CKD HGB USE SMARTSET 20084 05/28/202205/28, 05/21/2021, 05/18/2021, Additional history exists Dexa [...] Documents on File Type Date Recorded Patient Analysis Lead Expl anation Advanced 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
--- OUTSIDE RECORDS SUMMARY | 2023-06-18 03:04 | External Medical Summary | Summary of Care ---
Author Name Unknown Organization [place] [address] Care Team Providers Care Scalper Operator Name Role Phone Marcela Pinto MD Primary Care Provider + Reason for Visit * Reason Comments Outpatient Testing Encounter Details Date Type Department Care Team Description 08/07/2021 Laboratory Laboratory [address] [place] [id number] [place] [address] Hyperlipidemia with target LDL less than 100 Allergies Active Allergy Reactions Severity Noted Date Comments Valsartan 07/10/2010 Enalapril 05/21/2006 Escitalopram Oxalate Nausea/vomiting 10/11/2009 Nauseated Iodinated Diagnostic Agents Nausea/vomiting 05/2010 IV Contrast Iodine Hives 12/18/2009 IV Contrast Metoprolol Tartrate 11/18/2006 Made pulse low [place] Oil-Black Currant-Vit E 07/10/2010 Verapamil 03/21/2004 Bupropion Hcl 10/30/2009 Makes pt sick in the stomach documented as of this encounter (statuses as of 08/07/2021) Medications Medication Sig Dispensed Refills Start Date [...] less than 7.5% ([facility]) Take 2 mg by mouth [...] as of this encounter (statuses as of 08/07/2021) Active Problems Problem Noted Date Chronic kidney [...] as of this encounter (statuses as of 08/07/2021) Resolved Problems Problem Noted Date Resolved Date [...] Hypoxemia 10/08/2011 10/30/2015 Genetic Sleep Disorder Research Other*[id number] 07/25/2011 05/15/2016 Diverticulitis of colon 07/25/2011 01/06/20 [...] as of this encounter (statuses as of 08/07/2021) Immunizations Name Administration Dates Next Due COVID-19 mRNA, LNP-s, No Pre serve, 2-Dose Series ([employer]) 12/22/2020,2020 Hepatitis B, 20+ yrs 10/01/2017,04/21/2017,03/20 Pneumococcal [...] Encounters Date Type Specialty Care Team Description 08/08/2021 Nurse Only Ancillary Im, Nurse Annual [facility] [place] [address] [place] [address] [phone] 08/20/2021 Office Visit Internal Medicine David Duke PA-C [address] [place] [address] [phone] 08/21/2021 Immunization [place], Covid19 Vaccine [address] [place] [address] [phone] 08/23/2021 Office Visit Cardiology Dulce Merino CRNP [address] [facility] [place] [address] Pending Results Name Type Priority Associated Diagnoses Date /Time LIPID PANEL WITH DIRECT LDL IF TG IS HIGH Lab Routine Hyperlipidemia with target LDL less than 100 08/07/2021 9:05 AM EDT HEPATIC FUNCTION PANEL Lab Routine Hyperlipidemia with target LDL less than 100 08/07/2021 9:05 AM EDT Health Maintenance Due Date Last Done Comments Zoster Vaccines (2 of 3) 08/31/2012 07/06/2012 COVID-19 Vaccine (3 - Pfizer risk 3-dose series) 01/19/2021 12/22/2020, 2020 *DEPRESSION SCREENING,ANNUAL FOR PTS 12 AND OVER 06/24/2021 DIABETES-HGBA1C EVERY 6 MONTHS 09/09/2021 03/09/2021, 12/05/2020, 08/10/2020, Additional history exists DIABETES-FOOT EXAM 12/21/2021 12/21/2020, 0 10/19/2019, 01/05/2019, Additional history exists CKD GFR USE SMARTSET 61388 01/17/202207/19, 06/20/2021, 06/12/2021, Additional history exists CKD PHOS USE SMARTSET 08593 03/09/2022 03/09/2021, 0 03/22/2019 DIABETES-EYE EXAM 03/26/2022 03/26/2021, , 08/10/2019, Additional history exists CKD HGB USE SMARTSET 51193 05/28/202205/28, 05/21/2021, 05/18/2021, Additional history exists Dexa [...] Diagnosis Hyperlipidemia with target LDL less than 100 Other and unspecified hyperlipidemia documented in this encounter Advance Directives Documents on File Type Date Recorded Patient Fuel Cell Engineer Expl 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
--- OUTSIDE RECORDS SUMMARY | 2023-06-18 03:04 | External Medical Summary | Summary of Care ---
Author Name Unknown Organization [place] [address] Care Team Providers Care Lab Technician Name Role Phone Marcela Pinto MD Primary Care Provider + Reason for Visit * Reason Onset Date Comments Status Check 08/16/2021 Encounter Details Date Type Department Care Team Description 08/16/2021 Telephone General Internal Medicine [facility] 200 [facility] [place] [address] Marcela Pinto MD [address] [place] [address] [phone] Status Check Allergies Active Allergy Reactions Severity Noted Date Comments Valsartan 07/10/2010 Enalapril 05/21/2006 Escitalopram Oxalate Nausea/vomiting 10/11/2009 Nauseated Iodinated Diagnostic Agents Nausea/vomiting 05/2010 IV Contrast Iodine Hives 12/18/2009 IV Contrast Metoprolol Tartrate 11/18/2006 Made pulse low [place] Oil-Black Currant-Vit E 07/10/2010 Verapamil 03/21/2004 Bupropion [...] diastolic dysfunction (HCC),NICM (nonischemic cardiomyopathy) ([facility]),Presence of [...] Hypoxemia 10/08/2011 10/30/2015 Genetic Sleep Disorder Research Other*[id number] 07/25/2011 05/15/2016 Diverticulitis of colon 07/25/2011 01/06/20 [...] mRNA, LNP-s, No Pre serve, 2-Dose Series ([employer]) 12/22/2020,2020 Hepatitis B, 20+ yrs 10/01/2017,04/21/2017,03/20 Pneumococcal [...] encounter Miscellaneous Notes * Telephone Encounter - Em Duarte PHARM Tech - 08/16/2021 12:32 PM EDT Pt calling to inform doctor that the pt's medication is on backorder and requesting an alternative.. Did confirm this information with the pharmacy. Pt's current insurance information is as follows: Patient name: Nina Harrington ID number: [id number] BIN number: [id number] PCN number: [id number] Group number: [id number] Subscriber name: Nina Harrington Primary or Secondary Insurance:Primary Medication: Ciprofloxacin HCl 500 MG Oral Tablet (Cipro) Reason for Request: med on b/.o Pharmacy and phone number: [facility] [address] [place] [address] Rx plan and phone number: [facility] [phone] What alternative medications does the pharmacy have in stock?: n/a List of medications pt has tried and failed: n/a Thank you, Em Duarte, Trimmer Climber [facility] 08/16/2021,12:32 PM * Telephone Encounter - Janny Mercedes PHARM Tech - 08/16/2021 11:34 AM EDT Pt calling to request cipro. Informed pt that RX is available at their pharmacy. Pt verbalized understanding and stated they will check with their pharmacy regarding this medication. Thank you, Janny Mercedes Trimmer Climber [email or web address] 08/16/2021, 11:36 AM documented in this encounter Plan of Treatment Upcoming Encounters Date Type Specialty Care Team Description 08/20/2021 Office Visit Internal Medicine David Duke PA-C [address] [place] [facility] [place] [address] [phone] 08/21/2021 Immunization [place], Covid19 Vaccine [address] [place] [address] [phone] 08/23/2021 Office Visit Cardiology Dulce Merino CRNP [address] [facility] [place] [address] Health Maintenance Due Date Last Done Comments Zoster Vaccines (2 of 3) 08/31/2012 07/06/2012 COVID-19 Vaccine (3 - Pfizer risk 3-dose series) 01/19/2021 12/22/2020, 2020 DIABETES-HGBA1C EVERY 6 MONTHS 09/09/2021 03/09/2021, 12/05/2020, 08/10/2020, Additional history exists DIABETES-FOOT EXAM 12/21/2021 12/21/2020, 0 10/19/2019, 01/05/2019, Additional history exists CKD GFR USE SMARTSET 74816 01/17/202207/19, 06/20/2021, 06/12/2021, Additional history exists CKD PHOS USE SMARTSET 93802 03/09/2022 03/09/2021, 0 03/22/2019 DIABETES-EYE EXAM 03/26/2022 03/26/2021, , 08/10/2019, Additional history exists CKD HGB USE SMARTSET 48030 05/28/202205/28, 05/21/2021, 05/18/2021, Additional history exists Dexa [...] Documents on File Type Date Recorded Patient Dealer Relationship Manager Expl 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
--- OUTSIDE RECORDS SUMMARY | 2023-06-18 03:04 | External Medical Summary | Summary of Care ---
Author Name Unknown Organization [place] [address] Care Team Providers Care Marketing Technology Specialist Name Role Phone Marcela Pinto MD Primary Care Provider + Reason for Visit * Reason Onset Date Comments Medication Refill 08/10/2021 Med Request 08/11/2021 Encounter Details Date Type Department Care Team Description 08/10/2021 Refill General Internal Medicine [facility] [address] [facility] [place] [address] Marcela Pinto MD 200 [facility] [place] [address] [phone] Allergies Active Allergy Reactions Severity Noted Date Comments Valsartan 07/10/2010 Enalapril 05/21/2006 Escitalopram Oxalate Nausea/vomiting 10/11/2009 Nauseated Iodinated Diagnostic Agents Nausea/vomiting 05/2010 IV Contrast Iodine Hives 12/18/2009 IV Contrast Metoprolol Tartrate 11/18/2006 Made pulse low [place] Oil-Black Currant-Vit E 07/10/2010 Verapamil 03/21/2004 [...] diastolic dysfunction (HCC),NICM (nonischemic cardiomyopathy) ([facility]),Chronic atrial fibrillation (HCC),Hospital discharge follow-up,Presence of Watchman left atrial appendage closure device Take 1 Tab by mouth daily. 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 20 Tab 0 08/11/2021 Active Ciprofloxacin HCl 500 MG Oral Tablet (Cipro) Take 1 Tab by mouth every 12 hours. 20 Tab 0 08/10/2021 1 Discontinue d(Refill) documented as of this [...] Hypoxemia 10/08/2011 10/30/2015 Genetic Sleep Disorder Research Other*[id number] 07/25/2011 05/15/2016 Diverticulitis of colon 07/25/2011 01/06/20 [...] mRNA, LNP-s, No Pre serve, 2-Dose Series ([employer]) 12/22/2020,2020 Hepatitis B, 20+ yrs 10/01/2017,04/21/2017,03/20 Pneumococcal [...] Telephone Encounter - Briseyda Barber MD - 08/11/2021 3:09 PM EDT Signed Prescriptions: Disp Refills metroNIDAZOLE 500 MG Oral Tablet 30 Tab 0 Sig: Take 1 Tab by mouth 3 times a day.Authorizing Provider: MARCELA PINTO Ciprofloxacin HCl 500 MG Oral Tablet (Cipr*20 Tab 0 Sig: Take 1 Tab by mouth every 12 hours.Authorizing Provider: MARCELA PINTO----- * Addendum Note - Renetta Gu LPN - 08/11/2021 12:48 PM EDT Addended by: RENETTA GU on: 08/11/2021 12:48 PM Modules accepted: Orders * Telephone Encounter - Renetta Gu LPN - 08/11/2021 12:48 PM EDT Pended. Will just need new pharmacy. 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 * Telephone Encounter - Italia Nichols law librarian - 08/10/2021 9:16 AM EDT For diverticulitis Pt calling requesting the following medication below that is listed as "Historical". The following information was provided: Medication Name: Ciprofloxacin Strength: 500 mg Directions: 1 Q12H for 10D Preferred Quantity: 20 Previous Prescriber: Kisha Pinto Preferred Pharmacy: [facility] #[id number] Medication Name: metronidazole Strength: 500 mg Directions: 1 PO TID for 10D Preferred Quantity: 30 Previous Prescriber: Winston Pinto [facility]erred Pharmacy: [id number] [facility] Please review and approve if appropriate. Thank you, Italia Nichols CPhT Guest Service Team Leader II [facility] 08/10/2021,9:19 AM Please review and approve if appropriate. Thank you, Italia Nichols CPhT Guest Service Team Leader [facility] 08/10/2021,9:18 AM documented in this encounter Plan of Treatment Upcoming Encounters Date Type Specialty Care Team Description 08/20/2021 Office Visit Internal Medicine David Duke PA-C [address] [place] [address] [phone] 08/21/2021 Immunization [place], Covid19 Vaccine [address] [place] [address] 08/23/2021 Office Visit [facility] [address] Health Maintenance Due Date Last Done Comments Zoster Vaccines (2 of 3) 08/31/2012 07/06/2012 COVID-19 Vaccine (3 - Pfizer risk 3-dose series) 01/19/2021 12/22/2020, 2020 DIABETES-HGBA1C EVERY 6 MONTHS 09/09/2021 03/09/2021, 12/05/2020, 08/10/2020, Additional history exists DIABETES-FOOT EXAM 12/21/2021 12/21/2020, 0 10/19/2019, 01/05/2019, Additional history exists CKD GFR USE SMARTSET 67222 01/17/202207/19, 06/20/2021, 06/12/2021, Additional history exists CKD PHOS USE SMARTSET 30051 03/09/2022 03/09/2021, 0 03/22/2019 DIABETES-EYE EXAM 03/26/2022 03/26/2021, , 08/10/2019, Additional history exists CKD HGB USE SMARTSET 38067 05/28/202205/28, 05/21/2021, 05/18/2021, Additional history exists Dexa [...] Documents on File Type Date Recorded Patient Skin Toggler Expl anation Advanced 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
--- OUTSIDE RECORDS SUMMARY | 2023-06-18 03:04 | External Medical Summary | Summary of Care ---
Author Name Unknown Organization [place] [address] Care Team Providers Care Regulatory Lead Name Role Phone Marcela Pinto MD Primary Care Provider + Reason for Visit * Reason Onset Date Comments Medication Refill 08/10/2021 Encounter Details Date Type Department Care Team Description 08/10/2021 Telephone General Internal Medicine [facility] 200 [facility] [place] [address] Marcela Pinto MD 200 [place] [address] [phone] Medication Refill Allergies Active Allergy Reactions Severity Noted Date Comments Valsartan 07/10/2010 Enalapril 05/21/2006 Escitalopram Oxalate Nausea/vomiting 10/11/2009 Nauseated Iodinated Diagnostic Agents Nausea/vomiting 05/2010 IV Contrast Iodine Hives 12/18/2009 IV Contrast Metoprolol Tartrate 11/18/2006 Made pulse low [place] Oil-Black Currant-Vit E 07/10/2010 Verapamil 03/21/2004 Bupropion Hcl 10/30/2009 Makes pt sick in the stomach documented as of this encounter (statuses as of 08/10/2021) Medications Medication Sig Dispensed Refills Start Date [...] as of this encounter (statuses as of 08/10/2021) Active Problems Problem Noted Date Chronic kidney [...] as of this encounter (statuses as of 08/10/2021) Resolved Problems Problem Noted Date Resolved Date [...] Hypoxemia 10/08/2011 10/30/2015 Genetic Sleep Disorder Research Other*[id number] 07/25/2011 05/15/2016 Diverticulitis of colon 07/25/2011 01/06/20 [...] as of this encounter (statuses as of 08/10/2021) Immunizations Name Administration Dates Next Due COVID-19 mRNA, LNP-s, No Pre serve, 2-Dose Series ([employer]) 12/22/2020,2020 Hepatitis B, 20+ yrs 10/01/2017,04/21/2017,03/20 Pneumococcal [...] encounter Miscellaneous Notes * Telephone Encounter - Mamta Ware CCMA [...] Previous Prescriber: Kisha Pinto Preferred Pharmacy: [id number] [id number] [facility] Medication Name: metronidazole Strength: 500 mg Directions: 1 PO TID for 10D Preferred Quantity: 30 Previous Prescriber: Winston Pinto Preferred Pharmacy: [facility][id number] [facility] Please review and approve if appropriate. Thank you, Italia Nichols CPhT Income Tax Manager II [facility] 08/10/2021,9:19 AM Please review and approve if appropriate. Thank you, Italia Nichols CPhT Income Tax Manager [facility] 08/10/2021,9:18 AM documented in this encounter Plan of Treatment Upcoming Encounters Date Type Specialty Care Team Description 08/20/2021 Office Visit Internal Medicine David Duke PA-C [address] [place] [address] [phone] 08/21/2021 Immunization [place], Covid19 Vaccine [address] [place] [address] 08/23/2021 Office Visit Cardiology [facility]ino CR[facility] [address] Health Maintenance Due Date Last Done Comments Zoster Vaccines (2 of 3) 08/31/2012 07/06/2012 COVID-19 Vaccine (3 - Pfizer risk 3-dose series) 01/19/2021 12/22/2020, 2020 *DEPRESSION SCREENING,ANNUAL FOR PTS 12 AND OVER 06/24/2021 DIABETES-HGBA1C EVERY 6 MONTHS 09/09/2021 03/09/2021, 12/05/2020, 08/10/2020, Additional history exists DIABETES-FOOT EXAM 12/21/2021 12/21/2020, 0 10/19/2019, 01/05/2019, Additional history exists CKD GFR USE SMARTSET 88738 01/17/202207/19, 06/20/2021, 06/12/2021, Additional history exists CKD PHOS USE SMARTSET 40622 03/09/2022 03/09/2021, 0 03/22/2019 DIABETES-EYE EXAM 03/26/2022 03/26/2021, , 08/10/2019, Additional history exists CKD HGB USE SMARTSET 07739 05/28/202205/28, 05/21/2021, 05/18/2021, Additional history exists Dexa [...] Documents on File Type Date Recorded Patient Project Control Analyst Expl 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
--- OUTSIDE RECORDS SUMMARY | 2023-06-18 03:05 | External Medical Summary ---
Author Name Unknown Address Unknown Organization K01:LABORATORY [facility] [place] - [address] [place] [address] Laboratory Report Ordering Provider Test Date Status BUZZ VO 07/19/2021 13:05:52 Final Observation Date Value Abnormality Reference (Units ) Status BUN 07/19/2021 13:05:52 11 6-20 (mg/dL) Final Creatinine 07/19/2021 13:05:52 1.0 0.5-1.0 (mg/dL) Final Glomerular filtration rate/1.73 sq M.predicted [Volume Rate/Area] in Serum, Plasma or Blood by Creatinine-based formula (CKD-EPI) 07/19/2021 13:05:52 50.2 Below low normal >=60.0 (mL/min) Final Performing Location [facility] [place] - [address] [place] [address]
--- OUTSIDE RECORDS SUMMARY | 2023-06-18 03:05 | External Medical Summary ---
Author Name Unknown Address Unknown Organization K01:[facility]ORY [facility] [place] - [address] [place] [address] Laboratory Report Ordering Provider Test Date Status GEMA VOISO 07/19/2021 13:05:52 Final Observation Date Value Abnormality Reference (Units ) Status Albumin 07/19/2021 13:05:52 4.0 3.8-5.0 (g/dL) Final AST (Aspartate aminotransferase) 07/19/2021 13:05:52 18 10-35 (U/L) Final Alk Phos 07/19/2021 13:05:52 124 35-130 (U/L) Final ALT (Alanine aminotransferase) 07/19/2021 13:05:52 8 Below low normal 10-35 (U/L) Final Bilirubin, Total 07/19/2021 13:05:52 <0.2 <=1.2 (mg/dL) Final Bilirubin, Direct 07/19/2021 13:05:52 <0.2 0.0-0.3 (mg/dL) Final Protein 07/19/2021 13:05:52 6.6 6.0-8.3 (g/dL) Final Performing Location [facility]ORY [facility] [place] - [address] [place] [address]
--- OUTSIDE RECORDS SUMMARY | 2023-06-18 03:05 | External Medical Summary | Summary of Care ---
Author Name Unknown Organization [place] [address] Care Team Providers Care School Custodian Name Role Phone Alex Pinto MD Primary Care Provider + Reason for Referral * Medication Prior Authorization (Routine) Status Reason Specialty Diagnoses / Procedures Re ferred By Contact Referred To Contact Pending Review Diagnoses Generalized osteoarthritis Alex Pinto MD [address] [facility] [place] [address] Electronically signed by Alex Pinto MD at Reason for Visit * Reason Onset Date Comments Medication Refill 07/16/2021 Encounter Details Date Type Department Care Team Description 07/16/2021 Refill General [facility] [place] [address] [facility] [place] [address] Alex Pinto MD [address] [place] [address] [phone] GENERAL OSTEOARTHROSIS Allergies Active Allergy Reactions Severity Noted Date Comments Valsartan 07/10/2010 Enalapril 05/21/2006 Escitalopram Oxalate Nausea/vomiting 10/11/2009 Nauseated Iodinated Diagnostic Agents Nausea/vomiting 05/2010 IV Contrast Iodine Hives 12/18/2009 IV Contrast Metoprolol Tartrate 11/18/2006 Made pulse low [place] Oil-Black Currant-Vit E 07/10/2010 Verapamil 03/21/2004 Bupropion Hcl 10/30/2009 Makes pt sick in the stomach documented as of this encounter (statuses as of 07/18/2021) Medications Medication Sig Dispensed Refills Start Date [...] 0 8 Active glimepiride (AMARYL) 4 MG TabletIndications: Type 2 [...] TIMES A DAY 12 g 3 1 Active Lisinopril 2.5 MG Oral Tablet (Prinivil) [...] mouth daily. 90 Tab 3 1 Active Ciprofloxacin HCl 500 MG Oral Tablet (Cipro) Take 1 Tab by mouth every 12 hours for 10 days. 20 Tab 0 1 07/20/20 21 Active metroNIDAZOLE 500 MG Oral Tablet (Flagyl) Take 1 Tab by mouth 3 times a day for 10 days. 30 Tab 0 1 07/20/20 21 Active Metoprolol Succinate ER 25 MG [...] Friday only. 30 Tab 3 1 Active HYDROcodone-Acetam inophen 5-325 MG Oral TabletIndications: Generalized osteoarthritis Take 1 Tab by mouth every 6 hours as needed for Pain, Mild. 120 Tab 0 1 Active Promethazine HCl 25 MG Oral Tablet (Phenergan)Indicat ions:Generalized osteoarthritis TAKE 1 TABLET BY MOUTH EVERY 6 HOURS NEEDED FOR NAUSEA 60 Tab 0 1 07/18/20 21 Discontinued HYDROcodone-Acetam inophen 5-325 MG Oral TabletIndications: Generalized osteoarthritis Take 1 Tab by mouth every 6 hours as needed for Pain, Mild. 120 Tab 0 1 07/16/20 21 Discontinued(Re fill) Glimepiride 2 MG Oral Tablet (Amaryl) TAKE 1 TABLET BY MOUTH EVERY DAY WITH BREAKFAST 30 Tab 0 1 07/18/20 21 Discontinued documented as of this encounter (statuses as of 07/18/2021) Active Problems Problem Noted Date Chronic kidney [...] as of this encounter (statuses as of 07/18/2021) Resolved Problems Problem Noted Date Resolved Date [...] Hypoxemia 10/08/2011 10/30/2015 Genetic Sleep Disorder Research Other*[id number] 07/25/2011 05/15/2016 Diverticulitis of colon 07/25/2011 01/06/20 [...] as of this encounter (statuses as of 07/18/2021) Immunizations Name Administration Dates Next Due COVID-19 mRNA, LNP-s, No Pre serve, 2-Dose Series (tamyca) 12/22/2020,2020 Hepatitis B, 20+ yrs 10/01/2017,04/21/2017,03/20 Pneumococcal [...] Telephone Encounter - Alex Pinto MD - 07/18/2021 1:15 PM EDT Signed Prescriptions: Disp Refills HYDROcodone-Acetaminophen 5-325 MG Oral Ta*120 Tab0 Sig: Take 1 Tab by mouth every 6 hours as needed for Pain, Mild. Authorizing Provider: ALEX PINTO * Telephone Encounter - María Mane [facility] - 07/18/2021 9:26 AM EDT Pending Prescriptions: Disp Refills HYDROcodone-Acetaminophen 5-325 MG Oral T*120 Tab0 Sig: Take 1 Tab by mouth every 6 hours as needed for Pain, Mild. * Telephone Encounter - María Mane [facility] - 07/18/2021 9:26 AM EDT I have reviewed the patients controlled substance dispensing history in the Prescription Drug Monitoring Program in compliance with the [facility] regulations before prescribing a controlled substance. PDMP checked on 07/18/2021. Pending Prescriptions: Disp Refills HYDROcodone-Acetaminophen 5-325 MG Oral T*120 Tab0 Sig: Take 1 Tab by mouth every 6 hours as needed for Pain, Mild. Last Office/Telemedicine Visit: 07/10/2021 Next Office Visit: 08/14/2021 Scheduled Provider(s): Alex Pinto MD Date medication was last filled: 06/13/21 Date medication is due for refill: 07/11/21 Pharmacy: [id number] [facility] Is this request for a controlled substance?Yes [...] Results Review. Please approve if appropriate. Thanks, María Mane [facility] Clinical Pharmacist Telepharmacy * Telephone Encounter - Carolyne Leal [employer] - 07/16/2021 11:25 AM EDT Pending Prescriptions: Disp Refills HYDROcodone-Acetaminophen 5-325 MG Oral T*120 Tab0 Sig: Take 1 Tab by mouth every 6 hours as needed for Pain, Mild. Last Office/Telemedicine Visit: 07/10/2021 Next Office Visit: 08/14/2021 Scheduled Provider(s): Alex Pinto MD If no future appointments scheduled, and last appointment is greater than a year ago, please schedule patient for a follow-up appointment Last date the medication was ordered: 06/13/2021 Pharmacy: [id number] [facility] Is this request for a controlled substance?Yes [...] Lab Results Component Value Date/Time CREAT 1.0 06/20/2021 01:47 PM CREAT 1.08 (A) 06/12/2021 CREAT 1.0 05/27/2020 04:51 PM POTASSIUM 4.8 06/20/2021 01:47 PM POTASSIUM 4.1 06/12/2021 POTASSIUM 4.0 05/27/2020 04:51 PM TSH 0.965 12/05/2020 TSH 0.42 07/27/2018 11:32 AM LDLCALC 95 06/20/2021 01:47 PM LDLCALC 75.20 12/05/2020 LDLCALC 95 07/27/2018 11:32 AM LDLDIRECT 85 12/05/2020 LDLDIRECT 97 07/27/2018 11:32 AM ALT 15 05/27/2020 04:51 PM HGBA1C 7.2 (H) 03/09/2021 10:49 AM HGBA1C 6.5 (A) 12/05/2020 HGBA1C 6.6 (H) 08/26/2019 02:55 PM documented in this encounter Plan of Treatment Upcoming Encounters Date Type Specialty Care Team Description 07/19/2021 Laboratory Laboratory [address] [place] [address] [phone] 08/07/2021 Laboratory Laboratory [address] [place] [address] [phone] 08/08/2021 Nurse Only Ancillary Im, Nurse Annual Wellness [place] [address] [place] [address] [phone] 08/14/2021 Office Visit Internal Medicine Alex Pinto MD [address] [place] [address] [phone] 08/23/2021 Office Visit Cardiology Dulce Merino CRNP [address] [facility] [place] [address] [phone] Health Maintenance Due Date Last Done Comments Zoster Vaccines (2 of 3) 08/31/2012 07/06/2012 *DEPRESSION SCREENING,ANNUAL FOR PTS 12 AND OVER 06/24/2021 DIABETES-HGBA1C EVERY 6 MONTHS 09/09/2021 03/09/2021, 12/05/2020, 08/10/2020, Additional history exists CKD GFR USE SMARTSET 48901 12/18/202106/20, 06/12/2021, 05/28/2021, Additional history exists DIABETES-FOOT EXAM 12/21/2021 12/21/2020, 0 10/19/2019, 01/05/2019, Additional history exists CKD PHOS USE SMARTSET 34260 03/09/2022 03/09/2021, 0 03/22/2019 DIABETES-EYE EXAM 03/26/2022 03/26/2021, , 08/10/2019, Additional history exists CKD HGB USE SMARTSET 34509 05/28/202205/28, 05/21/2021, 05/18/2021, Additional history exists Dexa Scan 08/08/2025 08/08/2020, 07/, 06/19/2010, Additional history exists DTaP,Tdap,and Td Vaccines (2 - Td) 06/04/2028 06/04/2018, 02/28/2009 Pneumococcal Vaccine: 65+ Years Completed 03/28/2015, 05/21/2006 COVID-19 Vaccine Completed 12/22/2020, 2020 Influenza Vaccine (FLU shot) Completed , 06/22/2020, 07/09/2019, Additional history exists MENINGOCOCCAL (MENACTRA/MENVEO) Aged Out No longer eligible based on patient's age to complete this topic documented as of this encounter Implants Not on filedocumented as of this encounter Visit Diagnoses Diagnosis GENERAL OSTEOARTHROSIS Generalized osteoarthrosis, unspecified site documented in this encounter Advance Directives Documents on File Type Date Recorded Patient Application Counselor Expl anation Advanced 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
--- OUTSIDE RECORDS SUMMARY | 2023-06-18 03:05 | External Medical Summary ---
Author Name Unknown Address Unknown Organization K01:[facility] [address] [place] [address] Laboratory Report Ordering Provider Test Date Status GEMA VOISO 08/07/2021 09:05:47 Final Observation Date Value Abnormality Reference (Units ) Status Albumin 08/07/2021 09:05:47 3.9 3.8-5.0 (g/dL) Final AST (Aspartate aminotransferase) 08/07/2021 09:05:47 15 10-35 (U/L) Final Alk Phos 08/07/2021 09:05:47 118 35-130 (U/L) Final ALT (Alanine aminotransferase) 08/07/2021 09:05:47 11 10-35 (U/L) Final Bilirubin, Total 08/07/2021 09:05:47 0.3 <=1.2 (mg/dL) Final Bilirubin, Direct 08/07/2021 09:05:47 <0.2 0.0-0.3 (mg/dL) Final Protein 08/07/2021 09:05:47 6.4 6.0-8.3 (g/dL) Final Performing Location [facility] [place] [address] [place] [address]
--- OUTSIDE RECORDS SUMMARY | 2023-06-18 03:05 | External Medical Summary | Summary of Care ---
Author Name Unknown Organization [place] [address] Care Team Providers Care Sales Development Director Name Role Phone Alex Pinto MD Primary Care Provider + Reason for Visit * Reason Comments eRx-Medication Refill Encounter Details Date Type Department Care Team Description 07/16/2021 Refill General Internal Medicine [facility] [address] [place] [address] Alex Pinto MD [address] [place] [address] [phone] GENERAL OSTEOARTHROSIS Allergies Active Allergy Reactions Severity Noted Date Comments Valsartan 07/10/2010 Enalapril 05/21/2006 Escitalopram Oxalate Nausea/vomiting 10/11/2009 Nauseated Iodinated Diagnostic Agents Nausea/vomiting 05/2010 IV Contrast Iodine Hives 12/18/2009 IV Contrast Metoprolol Tartrate 11/18/2006 Made pulse low [place] Oil-Black Currant-Vit E 07/10/2010 Verapamil 03/21/2004 Bupropion [...] LOCATED WITHIN [facility]) Take 2 mg by mouth daily before [...] FOR NAUSEA 60 Tab 2 1 Active Promethazine HCl 25 [...] Hypoxemia 10/08/2011 10/30/2015 Genetic Sleep Disorder Research Other*[id number] 07/25/2011 05/15/2016 Diverticulitis of colon 07/25/2011 01/06/20 [...] 1:15 PM EDT Signed Prescriptions: Disp Refills Glimepiride 2 MG Oral Tablet (Amaryl) 30 Tab 2 Sig: TAKE 1 TABLET BY MOUTH EVERY DAY WITH BREAKFAST Authorizing Provider: ALEX PINTO Promethazine HCl 25 MG Oral Tablet (Phener*60 Tab 2 Sig: TAKE 1 TABLET BY MOUTH EVERY 6 HOURS NEEDED FOR NAUSEA Authorizing Provider: ALEX PINTO * Telephone Encounter - Missy Carbajal [facility] - 07/18/2021 9:17 AM EDT Pending Prescriptions: Disp Refills Glimepiride 2 MG Oral Tablet (Amaryl) 30 Tab 2 Sig: TAKE 1 TABLET BY MOUTH EVERY DAY WITH BREAKFAST Promethazine HCl 25 MG Oral Tablet (Phener*60 Tab 2 Sig: TAKE 1 TABLET BY MOUTH EVERY 6 HOURS NEEDED FOR NAUSEA * Telephone Encounter - Marly Sharif [facility] - 07/18/2021 9:14 AM EDT Pending Prescriptions: Disp Refills Glimepiride 2 MG Oral Tablet (Amaryl) [Ph*30 Tab 2 Sig: TAKE 1 TABLET BY MOUTH EVERY DAY WITH BREAKFAST Promethazine HCl 25 MG Oral Tablet (Phene*60 Tab 2 Sig: TAKE 1 TABLET BY MOUTH EVERY 6 HOURS NEEDED FOR NAUSEA * Telephone Encounter - Marly Sharif [facility] - 07/18/2021 9:13 AM EDT Please approve added refills on glimepiride if patient is to continue. Thanks, Marly Sharif Clinical Pharmacist Telepharmacy 07/18/2021, 9:13 AM * Telephone Encounter - KnashCarolyne PHARM Tech - 07/16/2021 11:35 AM EDT Pharmacy requesting glimepiride to have on file. Pending Prescriptions: Disp Refills Glimepiride 2 MG Oral Tablet (Amaryl) [Ph*30 Tab 0 Sig: TAKE 1 TABLET BY MOUTH EVERY DAY WITH BREAKFAST Promethazine HCl 25 MG Oral Tablet (Phene*60 Tab 0 Sig: TAKE 1 TABLET BY MOUTH EVERY 6 HOURS NEEDED FOR NAUSEA Last Office/Telemedicine Visit: 07/10/2021 Next Office Visit: 08/14/2021 Scheduled Provider(s): Alex Pinto MD If no future appointments scheduled, and last appointment is greater than a year ago, please schedule patient for a follow-up appointment Last date the medication was ordered: 07/10/2021,04/03/2021 Pharmacy: [id number] [id number] [facility] Is this request for a controlled substance?No [...] Specialty Care Team Description 07/19/2021 Laboratory Laboratory [address] [place] [address] [phone] 08/07/2021 Laboratory Laboratory [address] [place] [address] [phone] 08/08/2021 Nurse Only Ancillary Im, Nurse Annual Wellness [facility] [address] [place] [address] [phone] 08/14/2021 Office Visit Internal Medicine Alex Pinto MD [address] [facility] [place] [address] [phone] 08/23/2021 Office Visit Cardiology Dulce Merino CRNP [address] [place] [address] [phone] Health Maintenance Due Date Last Done Comments Zoster Vaccines (2 of 3) 08/31/2012 07/06/2012 *DEPRESSION SCREENING,ANNUAL FOR PTS 12 AND OVER 06/24/2021 DIABETES-HGBA1C EVERY 6 MONTHS 09/09/2021 03/09/2021, 12/05/2020, 08/10/2020, Additional history exists CKD GFR USE SMARTSET 83949 12/18/202106/20, 06/12/2021, 05/28/2021, Additional history exists DIABETES-FOOT EXAM 12/21/2021 12/21/2020, 0 10/19/2019, 01/05/2019, Additional history exists CKD PHOS USE SMARTSET 44068 03/09/2022 03/09/2021, 0 03/22/2019 DIABETES-EYE EXAM 03/26/2022 03/26/2021, , 08/10/2019, Additional history exists CKD HGB USE SMARTSET 84093 05/28/202205/28, 05/21/2021, 05/18/2021, Additional history exists Dexa [...] on File Type Date Recorded 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
--- OUTSIDE RECORDS SUMMARY | 2023-06-18 03:05 | External Medical Summary | Summary of Care ---
Author Name Unknown Organization [place] [address] Care Team Providers Care Residential Therapist Name Role Phone Marcela Pinto MD Primary Care Provider + Reason for Visit * Reason Comments Outpatient Testing Encounter Details Date Type Department Care Team Description 07/19/2021 Laboratory Laboratory [address] [place] [phone] [place] [address] Chronic systolic heart failure (HCC); Paroxysmal atrial fibrillation (HCC); Chronic 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); NICM (nonischemic cardiomyopathy) ([facility]); Chronic atrial fibrillation (HCC); Hospital discharge follow-up; Presence of Watchman left atrial appendage closure device; Hyperlipidemia with target LDL less than 100 Allergies Active Allergy Reactions Severity Noted Date Comments Valsartan 07/10/2010 Enalapril 05/21/2006 Escitalopram Oxalate Nausea/vomiting 10/11/2009 Nauseated Iodinated Diagnostic Agents Nausea/vomiting 05/2010 IV Contrast Iodine Hives 12/18/2009 IV Contrast Metoprolol Tartrate 11/18/2006 Made pulse low [place] Oil-Black Currant-Vit E 07/10/2010 Verapamil 03/21/2004 Bupropion Hcl 10/30/2009 Makes pt sick in the stomach documented as of this encounter (statuses as of 07/19/2021) Medications Medication Sig Dispensed Refills Start Date [...] Combivent Respimat 20-100 MCG/ACT Inhalation Aerosol Solution (Ipratropium-Albuter ol)Indications:Asthm a with severity to be determined,COPD, moderate (HCC) [...] mouth daily. 90 Tab 3 06/26/2021 Active Ciprofloxacin HCl 500 MG Oral Tablet (Cipro) Take 1 Tab by mouth every 12 hours for 10 days. 20 Tab 0 07/10/2021 07/20/2021 Active metroNIDAZOLE 500 MG Oral Tablet (Flagyl) Take 1 Tab by mouth 3 times a day for 10 days. 30 Tab 0 07/10/2021 07/20/2021 Active Metoprolol Succinate ER 25 MG Oral Tablet Extended Release 24 Hour (toPROL XL)Indications:Chron ic 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),NICM (nonischemic cardiomyopathy) ([facility]),Presence of Watchman [...] as of this encounter (statuses as of 07/19/2021) Active Problems Problem Noted Date Chronic kidney [...] as of this encounter (statuses as of 07/19/2021) Resolved Problems Problem Noted Date Resolved Date [...] Hypoxemia 10/08/2011 10/30/2015 Genetic Sleep Disorder Research Other*[id number] 07/25/2011 05/15/2016 Diverticulitis of colon 07/25/2011 01/06/20 [...] as of this encounter (statuses as of 07/19/2021) Immunizations Name Administration Dates Next Due COVID-19 mRNA, LNP-s, No Pre serve, 2-Dose Series ([employer])) 12/22/2020,2020 Hepatitis B, 20+ yrs 10/01/2017,04/21/2017,03/20 Pneumococcal [...] Encounters Date Type Specialty Care Team Description 08/07/2021 Laboratory Laboratory [address] [place] [address] [phone] 08/08/2021 Nurse Only Ancillary Im, Nurse Annual Wellness [facility] [address] [facility] [place] [address] [phone] 08/14/2021 Office Visit Internal Medicine Marcela Pinto MD [address] [facility] [place] [address] [phone] 08/23/2021 Office Visit Cardiology Dulce Merino CRNP [address] [facility] [place] [address] [phone] Pending Results Name Type Priority Associated Diagnoses Date /Time LIPID PANEL WITH DIRECT LDL IF TG IS HIGH Lab Routine Chronic systolic heart failure (HCC) Paroxysmal atrial fibrillation (HCC) Chronic 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) NICM (nonischemic cardiomyopathy) (HCC) Chronic atrial fibrillation (HCC) Hospital discharge follow-up Presence of Watchman left atrial appendage closure device Hyperlipidemia with target LDL less than 100 07/19/2021 1:05 PM EDT HEPATIC FUNCTION PANEL Lab Routine Chronic systolic heart failure (HCC) Paroxysmal atrial fibrillation (HCC) Chronic 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) NICM (nonischemic cardiomyopathy) (HCC) Chronic atrial fibrillation (HCC) Hospital discharge follow-up Presence of Watchman left atrial appendage closure device Hyperlipidemia with target LDL less than 100 07/19/2021 1:05 PM EDT BASIC METABOLIC PANEL Lab Routine Chronic 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) NICM (nonischemic cardiomyopathy) (HCC) Presence of Watchman left atrial appendage closure device 07/19/2021 1:05 PM EDT Health Maintenance Due Date Last Done Comments Zoster Vaccines (2 of 3) 08/31/2012 07/06/2012 *DEPRESSION SCREENING,ANNUAL FOR PTS 12 AND OVER 06/24/2021 DIABETES-HGBA1C EVERY 6 MONTHS 09/09/2021 03/09/2021, 12/05/2020, 08/10/2020, Additional history exists CKD GFR USE SMARTSET 65518 12/18/202106/20, 06/12/2021, 05/28/2021, Additional history exists DIABETES-FOOT EXAM 12/21/2021 12/21/2020, 0 10/19/2019, 01/05/2019, Additional history exists CKD PHOS USE SMARTSET 93664 03/09/2022 03/09/2021, 0 03/22/2019 DIABETES-EYE EXAM 03/26/2022 03/26/2021, , 08/10/2019, Additional history exists CKD HGB USE SMARTSET 52085 05/28/202205/28, 05/21/2021, 05/18/2021, Additional history exists Dexa [...] Documents on File Type Date 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
--- OUTSIDE RECORDS SUMMARY | 2023-06-18 03:05 | External Medical Summary | Summary of Care ---
Author Name Unknown Organization [place] [address] Care Team Providers Care Crook Operator Name Role Phone Marcela Pinto MD Primary Care Provider + Reason for Visit * Reason Onset Date Comments Test Results 07/20/2021 labs Encounter Details Date Type Department Care Team Description 07/20/2021 Telephone Cardiology, [facility] [address] [place] [address] Dulce Merino CRNP [address] [place] [address] Test Results (labs) Allergies Active Allergy Reactions Severity Noted Date Comments Valsartan 07/10/2010 Enalapril 05/21/2006 Escitalopram Oxalate Nausea/vomiting 10/11/2009 Nauseated Iodinated Diagnostic Agents Nausea/vomiting 05/2010 IV Contrast Iodine Hives 12/18/2009 IV Contrast Metoprolol Tartrate 11/18/2006 Made pulse low [place] Oil-Black Currant-Vit E 07/10/2010 Verapamil 03/21/2004 Bupropion Hcl 10/30/2009 Makes pt sick in the stomach documented as of this encounter (statuses as of 07/20/2021) Medications Medication Sig Dispensed Refills Start Date [...] A DAY 180 Cap 1 04/03/2021 Active [employer] N Voice System Device Use as directed. [...] as of this encounter (statuses as of 07/20/2021) Active Problems Problem Noted Date Chronic kidney [...] low 45%, mean 85%, <89% 6:18 hrs, OSREN 18.7 Refusing CPAP AHP Allergic rhinitis 07/19/2011 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 Asthma with severity to be determined Generalized osteoarthritis documented as of this encounter (statuses as of 07/20/2021) Resolved Problems Problem Noted Date Resolved Date [...] Hypoxemia 10/08/2011 10/30/2015 Genetic Sleep Disorder Research Other*[id number] 07/25/2011 05/15/2016 Diverticulitis of colon 07/25/2011 01/06/20 [...] as of this encounter (statuses as of 07/20/2021) Immunizations Name Administration Dates Next Due COVID-19 mRNA, LNP-s, No Pre serve, 2-Dose Series ([employer]) 12/22/2020,2020 Hepatitis B, 20+ yrs 10/01/2017,04/21/2017,03/20 Pneumococcal [...] Telephone Encounter - Yoan Lawson LPN - 07/20/2021 10:30 AM EDT MyG sent. * Telephone Encounter - Yoan Lawson LPN - 07/20/2021 10:27 AM EDT ----- Message from NIECY Holder sent at 07/20/2021 9:47 AM EDT ----- Kidney liver function stable. LDL well controlled. documented in this encounter Plan of Treatment Upcoming Encounters Date Type Specialty Care Team Description 08/07/2021 Laboratory Laboratory [address] [place] [address] [phone] 08/08/2021 Nurse Only Ancillary Im, Nurse Annual Wellness [place] [facility] [address] [facility] [place] [address] [phone] 08/14/2021 Office Visit Internal Medicine Marcela Pinto MD [address] [place] [address] [phone] 08/23/2021 Office Visit Cardiology Dulce Merino CRNP [address] [place] [address] [phone] Health Maintenance Due Date Last Done Comments Zoster Vaccines (2 of 3) 08/31/2012 07/06/2012 *DEPRESSION SCREENING,ANNUAL FOR PTS 12 AND OVER 06/24/2021 DIABETES-HGBA1C EVERY 6 MONTHS 09/09/2021 03/09/2021, 12/05/2020, 08/10/2020, Additional history exists DIABETES-FOOT EXAM 12/21/2021 12/21/2020, 0 10/19/2019, 01/05/2019, Additional history exists CKD GFR USE SMARTSET 56136 01/17/202207/19, 06/20/2021, 06/12/2021, Additional history exists CKD PHOS USE SMARTSET 86208 03/09/2022 03/09/2021, 0 03/22/2019 DIABETES-EYE EXAM 03/26/2022 03/26/2021, , 08/10/2019, Additional history exists CKD HGB USE SMARTSET 04415 05/28/202205/28, 05/21/2021, 05/18/2021, Additional history exists Dexa [...] Documents on File Type Date 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
--- OUTSIDE RECORDS SUMMARY | 2023-06-18 03:05 | External Medical Summary | Summary of Care ---
Author Name Unknown Organization [place] [address] Care Team Providers Care Department [employer] Name Role Phone Marcela Pinto MD Primary Care Provider + Reason for Visit * Reason Comments eRx-Medication Refill Encounter Details Date Type Department Care Team Description 07/25/2021 Refill General Internal Medicine [facility] [address] [place] [address] Marcela Pinto MD [address] [place] [address] [phone] Allergies Active Allergy Reactions Severity Noted Date Comments Valsartan 07/10/2010 Enalapril 05/21/2006 Escitalopram Oxalate Nausea/vomiting 10/11/2009 Nauseated Iodinated Diagnostic Agents Nausea/vomiting 05/2010 IV Contrast Iodine Hives 12/18/2009 IV Contrast Metoprolol Tartrate 11/18/2006 Made pulse low [place] Oil-Black Currant-Vit E 07/10/2010 Verapamil 03/21/2004 Bupropion Hcl 10/30/2009 Makes pt sick in the stomach documented as of this encounter (statuses as of 07/27/2021) Medications Medication Sig Dispensed Refills Start Date [...] as of this encounter (statuses as of 07/27/2021) Active Problems Problem Noted Date Chronic kidney [...] as of this encounter (statuses as of 07/27/2021) Resolved Problems Problem Noted Date Resolved Date [...] Hypoxemia 10/08/2011 10/30/2015 Genetic Sleep Disorder Research Other*[id number] 07/25/2011 05/15/2016 Diverticulitis of colon 07/25/2011 01/06/20 [...] as of this encounter (statuses as of 07/27/2021) Immunizations Name Administration Dates Next Due COVID-19 mRNA, LNP-s, No Pre serve, 2-Dose Series ([employer]) 12/22/2020,2020 Hepatitis B, 20+ yrs 10/01/2017,04/21/2017,03/20 Pneumococcal [...] Notes * Telephone Encounter - Doug Hayward [facility] - 07/27/2021 9:44 AM EDT Refused Prescriptions: Disp Refills metroNIDAZOLE 500 MG Oral Tablet (Flagyl) 30 Tab 0 Sig: TAKE 1 TAB BY MOUTH 3 TIMES A DAY FOR 10 DAYS.Refused By: DOUG GONZALEZ for Refusal: Patient Should Contact Provider First Ciprofloxacin HCl 500 MG Oral Tablet (Cipr*20 Tab 0 Sig: TAKE 1 TABLET BY MOUTH EVERY 12 HOURS FOR 10 DAYSRefused By: DOUG GONZALEZ for Refusal: Patient Should Conta ctProvider First * Telephone Encounter - Doug Hayward [facility] - 07/27/2021 9:43 AM EDT Pending Prescriptions: Disp Refills metroNIDAZOLE 500 MG Oral Tablet (Flagyl)*30 Tab 0 Sig: TAKE 1 TAB BY MOUTH 3 TIMES A DAY FOR 10 DAYS. Ciprofloxacin HCl 500 MG Oral Tablet (Cip*20 Tab 0 Sig: TAKE 1 TABLET BY MOUTH EVERY 12 HOURS FOR 10 DAYS Last Office/Telemedicine Visit: 07/10/2021 Next Office Visit: 08/14/2021 Scheduled Provider(s): Marcela Pinto MD If no future appointments scheduled, and last appointment is greater than a year ago, please schedule patient for a follow-up appointment Last date the medication was ordered: 07/10/21 Pharmacy: [facility][id number] [address] [facility] Is this request for a controlled [...] 07/19/2021 01:05 PM CREAT 1.08 (A) 06/12/2021 CREAT 1.0 05/27/2020 04:51 PM POTASSIUM 4.6 07/19/2021 01:05 PM POTASSIUM 4.1 06/12/2021 POTASSIUM 4.0 05/27/2020 04:51 PM TSH 0.965 12/05/2020 TSH 0.42 07/27/2018 11:32 AM LDLCALC 61 07/19/2021 01:05 PM LDLCALC 75.20 12/05/2020 LDLCALC 95 07/27/2018 11:32 AM LDLDIRECT 85 12/05/2020 LDLDIRECT 97 07/27/2018 11:32 AM ALT 8 (L) 07/19/2021 01:05 PM ALT 15 05/27/2020 04:51 PM HGBA1C 7.2 (H) 03/09/2021 10:49 AM HGBA1C 6.5 (A) 12/05/2020 HGBA1C 6.6 (H) 08/26/2019 02:55 PM documented in this encounter Plan of Treatment Upcoming Encounters Date Type Specialty Care Team Description 08/07/2021 Laboratory Laboratory [place], [address] [place] [address] [phone] 08/08/2021 Nurse Only Ancillary Im, Nurse Annual Wellness [facility] [place] [address] [place] [address] [phone] 08/14/2021 Office Visit Internal Medicine Marcela Pinto MD [address] [place] [address] [phone] 08/23/2021 Office Visit Cardiology Dulce Merino CRNP [address] [facility] [place] [address] Health Maintenance Due Date Last Done Comments Zoster Vaccines (2 of 3) 08/31/2012 07/06/2012 *DEPRESSION SCREENING,ANNUAL FOR PTS 12 AND OVER 06/24/2021 COVID-19 Vaccine (3 - Pfizer booster) 06/24/2021 12/22/2020, 2020 DIABETES-HGBA1C EVERY 6 MONTHS 09/09/2021 03/09/2021, 12/05/2020, 08/10/2020, Additional history exists DIABETES-FOOT EXAM 12/21/2021 12/21/2020, 0 10/19/2019, 01/05/2019, Additional history exists CKD GFR USE SMARTSET 58231 01/17/202207/19, 06/20/2021, 06/12/2021, Additional history exists CKD PHOS USE SMARTSET 71808 03/09/2022 03/09/2021, 0 03/22/2019 DIABETES-EYE EXAM 03/26/2022 03/26/2021, , 08/10/2019, Additional history exists CKD HGB USE SMARTSET 76782 05/28/202205/28, 05/21/2021, 05/18/2021, Additional history exists Dexa [...] on File Type Date 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
--- OUTSIDE RECORDS SUMMARY | 2023-06-18 03:05 | External Medical Summary | Summary of Care ---
Author Name Unknown Organization [place] [address] Care Team Providers Care Medical Records Specialist Name Role Phone Marcela Pinto MD Primary Care Provider + Reason for Referral * Medication Prior Authorization (Routine) Status Reason Specialty Diagnoses / Procedures Re ferred By Contact Referred To Contact Pending Review Diagnoses Generalized osteoarthritis Marcela Pinto MD [address] [facility] [place] [address] Electronically signed by Marcela Pinto MD at Reason for Visit * Reason Onset Date Comments Medication Refill 07/16/2021 Medication Refill 07/23/2021 Encounter Details Date Type Department Care Team Description 07/16/2021 Refill General Internal Medicine [facility] [place] [address] [place] [address] Marcela Pinto MD [address] [facility] [place] [address] [phone] GENERAL OSTEOARTHROSIS Allergies Active Allergy Reactions Severity Noted Date Comments Valsartan 07/10/2010 Enalapril 05/21/2006 Escitalopram Oxalate Nausea/vomiting 10/11/2009 Nauseated Iodinated Diagnostic Agents Nausea/vomiting 05/2010 IV Contrast Iodine Hives 12/18/2009 IV Contrast Metoprolol Tartrate 11/18/2006 Made pulse low [place] Oil-Black Currant-Vit E 07/10/2010 Verapamil 03/21/2004 Bupropion Hcl 10/30/2009 Makes pt sick in the stomach documented as of this encounter (statuses as of 07/23/2021) Medications Medication Sig Dispensed Refills Start Date [...] A DAY 180 Cap 1 1 Active AMS-QiSens N Voice System Device Use as directed. [...] 30 Tab 0 1 07/18/20 21 Discontinued Ciprofloxacin HCl 500 MG Oral Tablet (Cipro) Take 1 Tab by mouth every 12 hours for 10 days. 20 Tab 0 1 07/20/20 21 metroNIDAZOLE 500 MG Oral Tablet (Flagyl) Take 1 Tab by mouth 3 times a day for 10 days. 30 Tab 0 1 07/20/20 21 documented as of this encounter (statuses as of 07/23/2021) Active Problems Problem Noted Date Chronic kidney [...] as of this encounter (statuses as of 07/23/2021) Resolved Problems Problem Noted Date Resolved Date [...] Hypoxemia 10/08/2011 10/30/2015 Genetic Sleep Disorder Research Other*[id number] 07/25/2011 05/15/2016 Diverticulitis of colon 07/25/2011 01/06/20 [...] as of this encounter (statuses as of 07/23/2021) Immunizations Name Administration Dates Next Due COVID-19 mRNA, LNP-s, No Pre serve, 2-Dose Series ([employer]) 12/22/2020,2020 Hepatitis B, 20+ yrs 10/01/2017,04/21/2017,03/20 Pneumococcal [...] Encounter - Em Duarte PHARM Tech - 07/23/2021 10:40 AM EDT Pt calling to request HYDROcodone-Acetaminophen 5-325 MG Oral Tablet. Informed pt that RX is available at their pharmacy. Pt verbalized understanding and stated they will check with their pharmacy regarding this medication. Thank you, Em Duarte, Safety Compliance Specialist [facility] Telepharmacy 07/23/2021,10:40 AM * Telephone Encounter - Marcela Pinto MD - 07/18/2021 1:15 PM EDT Signed Prescriptions: Disp Refills HYDROcodone-Acetaminophen 5-325 MG Oral Ta*120 Tab0 Sig: Take 1 Tab by mouth every 6 hours as needed for Pain, Mild. Authorizing Provider: MARCELA PINTO * Telephone Encounter - María Mane [facility] - 07/18/2021 9:26 AM EDT Pending Prescriptions: Disp Refills HYDROcodone-Acetaminophen 5-325 MG Oral T*120 Tab0 Sig: Take 1 Tab by mouth every 6 hours as needed for Pain, Mild. * Telephone Encounter - María Mane [facility] - 07/18/2021 9:26 AM EDT I have reviewed the patients controlled substance dispensing history in the Prescription Drug Monitoring Program in compliance with the [facility] regulations before prescribing a controlled substance. PDMP checked on 07/18/2021. Pending Prescriptions: Disp Refills HYDROcodone-Acetaminophen 5-325 MG Oral T*120 Tab0 Sig: Take 1 Tab by mouth every 6 hours as needed for Pain, Mild. Last Office/Telemedicine Visit: 07/10/2021 Next Office Visit: 08/14/2021 Scheduled Provider(s): Marcela Pinto MD Date medication was last filled: 06/13/21 Date medication is due for refill: 07/11/21 Pharmacy: [facility] #[id number] [address] [facility] Is [...] Please approve if appropriate. Thanks, María Mane [facility] Clinical Pharmacist Telepharmacy * Telephone Encounter - Carolyne Leal PHARM Tech - 07/16/2021 11:25 AM EDT Pending Prescriptions: [...] date the medication was ordered: 06/13/2021 Pharmacy: [facility][id number] [address] [facility] Is [...] Specialty Care Team Description 08/07/2021 Laboratory Laboratory [address] [place] [address] [phone] 08/08/2021 Nurse Only Ancillary Im, Nurse Annual Wellness [facility] [address] [place] [address] [phone] 08/14/2021 Office Visit Internal Medicine Marcela Pinto MD [address] [facility] [address] [phone] 08/23/2021 Office Visit Cardiology Dulce Merino CRNP [address] [facility] [place] [address] [phone] Health Maintenance Due Date Last Done Comments Zoster Vaccines (2 of 3) 08/31/2012 07/06/2012 *DEPRESSION SCREENING,ANNUAL FOR PTS 12 AND OVER 06/24/2021 DIABETES-HGBA1C EVERY 6 MONTHS 09/09/2021 03/09/2021, 12/05/2020, 08/10/2020, Additional history exists DIABETES-FOOT EXAM 12/21/2021 12/21/2020, 0 10/19/2019, 01/05/2019, Additional history exists CKD GFR USE SMARTSET 24160 01/17/202207/19, 06/20/2021, 06/12/2021, Additional history exists CKD PHOS USE SMARTSET 83311 03/09/2022 03/09/2021, 0 03/22/2019 DIABETES-EYE EXAM 03/26/2022 03/26/2021, , 08/10/2019, Additional history exists CKD HGB USE SMARTSET 26658 05/28/202205/28, 05/21/2021, 05/18/2021, Additional history exists Dexa [...] Documents on File Type Date 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
--- OUTSIDE RECORDS SUMMARY | 2023-06-18 03:05 | External Medical Summary ---
Author Name Unknown Address Unknown Organization [id number]:LABORATORY [facility] [place] - [address] [place] [address] Laboratory Report Ordering Provider Test Date Status BUZZ VO 07/19/2021 13:05:52 Final Observation Date Value Abnormality Reference (Units ) Status Triglyceride 07/19/2021 13:05:52 126 <=174 ( mg/dL) Final Performing Location LABORATORY [facility] - [address] [place] [address]
--- OUTSIDE RECORDS SUMMARY | 2023-06-18 03:05 | External Medical Summary ---
Author Name Unknown Address Unknown Organization K01:LABORATORY [facility] - [address] [place] [address] Laboratory Report Ordering Provider Test Date Status BUZZ VO 08/07/2021 09:05:47 Final Observation Date Value Abnormality Reference (Units ) Status Triglyceride 08/07/2021 09:05:47 149 <=174 ( mg/dL) Final Performing Location LABORATORY [facility] - [address] [place] [address]
--- OUTSIDE RECORDS SUMMARY | 2023-06-18 03:06 | External Medical Summary | Summary of Care ---
Author Name Unknown Organization [place] [address] Care Team Providers Care Pediatric Physician Assistant Name Role Phone Marcela Pinto MD Primary Care Provider + Reason for Visit * Reason Comments Follow Up Encounter Details Date Type Department Care Team Description 07/12/2021 Office Visit Cardiology, [facility] [address] [place] [address] Dulce Merino CRNP [address] [place] [address] Permanent atrial fibrillation (HCC)*; Chronic 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); NICM (nonischemic cardiomyopathy) (HCC); Presence of Watchman left atrial appendage closure device; Dyslipidemia, goal LDL below 70; HTN, goal below 140/90 Allergies Active Allergy Reactions Severity Noted Date Comments Valsartan 07/10/2010 Enalapril 05/21/2006 Escitalopram Oxalate Nausea/vomiting 10/11/2009 Nauseated Iodinated Diagnostic Agents Nausea/vomiting 05/2010 IV Contrast Iodine Hives 12/18/2009 IV Contrast Metoprolol Tartrate 11/18/2006 Made pulse low [place] Oil-Black Currant-Vit E 07/10/2010 Verapamil 03/21/2004 Bupropion Hcl 10/30/2009 Makes pt sick in the stomach documented as of this encounter (statuses as of 07/12/2021) Medications Medication Sig Dispensed Refills Start Date [...] goal of less than 7.5% ([facility]) Take 2 mg by mouth daily before [...] directed. Tests three times daily 0 Active Promethazine HCl 25 MG Oral Tablet (Phenergan)Indicat ions:Generalized osteoarthritis TAKE 1 TABLET BY MOUTH EVERY 6 HOURS NEEDED FOR NAUSEA 60 Tab 0 1 Active Klor-Con M20 20 MEQ [...] mouth daily. 30 Tab 3 1 Active HYDROcodone-Acetam inophen 5-325 MG Oral TabletIndications: Generalized osteoarthritis Take 1 Tab by mouth every 6 hours as needed for Pain, Mild. 120 Tab 0 1 Active Furosemide 40 MG Oral [...] mouth daily. 90 Tab 3 1 Active Glimepiride 2 MG Oral Tablet (Amaryl) TAKE 1 TABLET BY MOUTH EVERY DAY WITH BREAKFAST 30 Tab 0 1 Active Ciprofloxacin HCl 500 MG Oral [...] Friday only. 30 Tab 3 1 Active Nebulizers (NEBULIZER COMPRESSOR) [facility] Inhale via nebulizer. Use as directed. Please give tubing to use with it. 1 Each 1 9 07/12/20 21 Discontinued(Me dication List Clean Up) zoster vac recomb adjuvanted (SHINGRIX) 50 MCG/0.5ML injectionIndicatio ns:Need for shingles vaccine Inject 0.5 mL into a large muscle now and repeat dose in 60 to 180 days. Please fax date this was given to our office. 1 Each 1 0 07/12/20 21 Discontinued(Ut dication List Clean Up) Spironolactone 25 MG Oral Tablet (Aldactone)Indicat ions:Chronic systolic heart failure (HCC) Take 0.5 Tabs by mouth daily. 30 Tab 3 1 07/12/20 21 Discontinued Fludrocortisone Acetate 0.1 MG Oral Tablet (Florinef) TAKE 1 TABLET BY MOUTH EVERY DAY 30 Tab 1 1 07/12/20 21 Discontinued(Dilip palacios preference/disc ontinuation) Metoprolol Succinate ER 25 MG Oral Tablet Extended Release 24 Hour (toPROL XL)Indications:Chr onic systolic heart failure (HCC),Paroxysmal atrial fibrillation (HCC),Chronic 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),NICM (nonischemic cardiomyopathy) (HCC),Chronic atrial fibrillation (HCC),Hospital discharge follow-up,Presence of Watchman left atrial appendage closure device,Hyperlipide susan with target LDL less than 100 Take 0.5mg tablet in the morning and 0.5 tablet in the evening. 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 07/25/2011 05/15/2016 Diverticulitis of colon 07/25/2011 01/06/20 [...] as of this encounter (statuses as of 07/12/2021) Immunizations Name Administration Dates Next Due COVID-19 mRNA, LNP-s, No Pre serve, 2-Dose Series ([email or web address]) 12/22/2020,2020 Hepatitis B, 20+ yrs 10/01/2017,04/21/2017,03/20 Pneumococcal [...] Reading Time Taken Comments Blood Pressure 102/62 07/12/2021 1:27 PM EDT Pulse 64 07/12/2021 1:27 PM EDT Temperature 36.5 C (97.7 F) 07/12/2021 1:27 PM ED T Respiratory Rate - - Oxygen Saturation 98% 07/12/2021 1:27 PM EDT Inhaled Oxygen Concentration - - Weight 115.2 kg (254 lb) 07/12/2021 1:27 PM EDT Height - - Body Mass Index 42.27 03/05/2021 8:32 AM EDT documented in this encounter Patient Instructions * Patient Instructions* Dulce Merino CRNP - 07/12/2021 1:39 PM EDT 1. Continue Metoprolol 1 tab in the morning and 1/2 tablet in the evening 2. Reduce Spironalactone to 1/2 tablet every Friday, Friday, and Friday 3. Labs in 1 week. Okay to have this done in [place] 4. Watch for swollen ankles and worsening shortness of breath. [facility] Cardiology number: (ask to be connected to [facility] cardiology) documented in this encounter Progress Notes * Dulce Merino CRNP - 07/12/2021 1:30 PM EDT Cardiology Outpatient Visit 07/12/[address] Lopez Past medical history: 1. Chronic heart failure with reduced ejection fraction, EF 40-45% 02/2021, NYHA class 3 2. Nonischemic cardiomyopathy, cardiac catheterization performed 11/2020 in [place] demonstrated mild nonobstructive CAD 3. Permanent atrial fibrillation, [id number] score of 5 (age 1, female, CHF, hypertension), no ACs/p watchman implant 11/2019 4. Severe oxygen-dependent COPD with chronic hypercapnia HPI 80-year-old female presenting to the cardiology office today in follow-up for CHF. Patient was lastseen by the undersigned approximately 4 weeks ago. At this appointment she was mildly hypervolemic on exam and weight was up about 5 lb on her home scale. Patient was instructed to increase Lasix to 40 mg twice a day. Patient carries a history of permanent atrial fibrillation and a 3 day Zio monitor was placed due to elevated resting heart rates. In the meantime carvedilol was switched to metoprolol. Zio results showed a 100% AFib burden with an average heart rate of 77 beats per minute with frequent ventricular ectopy and short salvos of V-tach. Metoprolol succinate was increased to 25 mg inthe morning and 12.5 mg in the evening. Today the patient presents feeling improved compared to last appointment. Denies any exertional chest pain. Notes that her shortness of breath is now back to baseline. Continues to use 2 L of oxygen during the day in about 4 L at night. Denies orthopnea. No lower extremity edema or abdominal bloating. Weights are back to baseline. Does not believe that she is retaining any fluid. No dizziness or syncope. No fever, chills, cough, hematochezia, melena, or hemoptysis. She states she is compliant with all medications, and offers no side effects. Notes that when she saw her PCP her blood pressure was slightly low however she was feeling well. PCP reduce metoprolol to 12.5 mg twice daily however patient never made this change. Of note she has been dealing with some diverticulitis and is currently on Cipro and Flagyl. Appetite has not been the best however she is staying hydrated. Current Outpatient Medications Medication Sig Dispense Refill Metoprolol Succinate ER 25 MG Oral Tablet Extended Release 24 Hour (toPROL XL) Take 1 tab in the morning and 1/2 tab in the evening. 135 Tab 3 [START ON 07/13/2021] Spironolactone 25 MG Oral Tablet (Aldactone) Take 0.5 Tabs by mouth once aday on Friday, Friday, and Friday only. 30 Tab 3 Ciprofloxacin HCl 500 MG Oral Tablet (Cipro) Take 1 Tab by mouth every 12 hours for 10 days. 20Tab 0 Glimepiride 2 MG Oral Tablet (Amaryl) TAKE 1 TABLET BY MOUTH EVERY DAY WITH BREAKFAST 30 Tab 0 metroNIDAZOLE 500 MG Oral Tablet (Flagyl) Take 1 Tab by mouth 3 times a day for 10 days. 30 Tab0 Atorvastatin Calcium 80 MG Oral Tablet (Lipitor) Take 1 Tab by mouth daily. 90 Tab 3 Furosemide 40 MG Oral Tablet (Lasix) 40 mg in AM, 40 mg in PM 270 Tab 1 HYDROcodone-Acetaminophen 5-325 MG Oral Tablet Take 1 Tab by mouth every 6 hours as needed for Pain, Mild. 120 Tab 0 methIMAzole 10 MG Oral Tablet (Tapazole) Take 1 Tab by mouth daily. 30 Tab 3 Zafirlukast 20 MG Oral Tablet (Accolate) TAKE 1 TABLET BY MOUTH EVERY DAY 90 Tab 3 Advair HFA 230-21 MCG/ACT Inhalation Aerosol (fluticasone-Salmeterol) Inhale 2 Puffs by mouth 2times a day. Aspirin 81 MG Oral Tablet Delayed Release Take 81 mg by mouth daily. Klor-Con M20 20 MEQ Oral Tablet Extended Release (Potassium Chloride Annalisa ER) TAKE 1 TABLET BY MOUTH EVERY DAY 90 Tab 1 Omeprazole 20 MG Oral Capsule Delayed Release (PriLOSEC) TAKE 1 CAPSULE BY MOUTH TWICE A DAY 180 Cap 1 Dicyclomine HCl 20 MG Oral Tablet (Bentyl) TAKE 1 TABLET BY MOUTH EVERY DAY 90 Tab 2 Lisinopril 2.5 MG Oral Tablet (Prinivil) Take 2.5 mg by mouth daily. Combivent Respimat 20-100 MCG/ACT Inhalation Aerosol Solution (Ipratropium- Albuterol) TAKE 1 PUFF BY MOUTH 4 TIMES A DAY 12 g 3 Albuterol Sulfate (VENTOLIN HFA) 108 (90 Base) MCG/ACT AERS Inhale 2 Puffs by mouth 2 times a day. docusate sodium (COLACE) 100 MG Capsule Take 1 Cap by mouth daily. 90 Cap 0 glimepiride (AMARYL) 4 MG Tablet Take 2 mg by mouth daily before breakfast. 90 Tab 3 [facility] SENNA 8.6 MG Tablet TAKE [...] 1000 UNITS PO TABS one tablet daily [employer] N Glucose Test In Vitro Strip (Glucose Blood) Test as directed. Tests three times daily [employer] N Voice System Device Use as directed. Tests three times daily/E11.9 Promethazine HCl 25 MG Oral Tablet (Phenergan) TAKE 1 TABLET BY MOUTH EVERY 6 HOURS NEEDED FOR NAUSEA 60 Tab 0 doxycycline 100 MG Tablet Take 100 mg by mouth 2 times a day. RESCUE KIT: Take for Colds. ondansetron ODT (ZOFRAN) [address] 8 mg on tongue every 8 hours as needed for Nausea. dissolve on tongue. Lancets MISC Use as directed. USE TO TEST BLOOD SUGAR 3 TIMES A DAY FOR DIAGNOSIS CODE OF E11.9 300Each 1 albuterol sulfate (PROVENTIL) (2.5 MG/3ML) 0.083% nebulizer solution USE ONE NEBULIZER TREATMENT TWICE A DAY DIRECTED FOR WORSENING ASTHMA. J45.909, J44.9 225 mL 1 ferrous sulfate (FEOSOL) 325 (65 FE) MG Tablet One tablet every day 60 Tab 11 polyethylene glycol 3350 (MIRALAX) 255 gram powder Take 17 g by mouth 2 times a day. One cap full in juice, to effect 1 stool per day. . (Patient taking differently: Take 17 g by mouth daily as needed for Constipation. One cap full in juice, to effect 1 stool per day. .) 2 Bottle 3 Past Medical History: Diagnosis Date ACEI/ARB contraindicated Asthma Carpal tunnel syndrome DM type 2, goal: symptom mgmt (HCC) Generalized osteoarthritis HTN, goal below 140/90 Mixed dyslipidemia Past Surgical History: Procedure Laterality Date APPENDECTOMY W/OTHER PROCEDURE 1960 when removed gall bladder COLONOSCOPY, DIAGNOSTIC (RECTUM) 05/29/2016 poor prep, diverticulosis/inpt [facility] COLONOSCOPY, DIAGNOSTIC (RECTUM) 06/05/2017 diverticulosis, repeat 3 yrs/[facility] COLONOSCOPY, DIAGNOSTIC (RECTUM) 02/28/2018 adenomatous polyps, diverticulosis, repeat 3 yrs / [facility] COLONOSCOPY, DIAGNOSTIC (RECTUM) 05/08/2020 inflammatory tissue on bx, diverticulosis / [facility] COLONOSCOPY, W/BIOPSY 03/20/2012 hyperplastic polyps rpt 3 years. EGD, FLEXIBLE, DIAGNOSTIC [facility], [facility], [facility]AGNOSTIC 05/08/2020 normal / [facility] EGD, FLEXIBLE,W/ENDOSCOPIC US 11/08/2016 inflammatory changes, stomach lesion, repeat EUS 1.5 yrs/[facility] EGD, FLEXIBLE,W/ENDOSCOPIC US 05/01/2018 stromal cell (smooth muscle) neoplasm, CBD dilation, repeat 2 yrs (needs OV prior)/[facility] EGD, FLEXIBLE,W/ENDOSCOPIC US 09/01/2020 leiomyoma / [facility] INCISIONAL HERNIA REPAIR, LAP, REDUCIBLE 09/29/2012 Repair of incarcerated supraumbilical (incisional) hernia with [facility] mesh 09/29/12 LIGATE/CUT OVIDUCT(S) REMOVAL OF TONSILS, AGE 12+ age 11 REMOVE GALLBLADDER 1960 SIGMOIDOSCOPY, DIAGNOSTIC 04/29/2014 [facility]OW[facility], REMOVE FOREIGN BODY [...] IV Contrast Metoprolol Tartrate Made pulse low [place] Oil-Black Currant-Vit E Verapamil Wellbutrin [Bupropion Hcl] Makes pt sick in the stomach Review of Systems: See HPI for pertinent positives. All others negative, other than those noted in HPI. Physical Exam BP 102/62 | Pulse 64 | Temp 36.5 C (97.7 F) (Infrared ) | Wt 115.2 kg (254 lb) | SpO2 98% | BMI42.27 kg/m | BSA 2.3 m General: No acute distress. A+Ox3. HEENT: Normocephalic. Atraumatic. Conjunctiva and sclera clear. NECK: No carotid bruits. No JVD. Carotid upstrokes are brisk. Heart: Irregular rhythm, regular rate. S1 and S2 noted without murmur, rubs, gallops. Lungs: Diminished lung sounds bilaterally, no wheezing rhonchi or rales. Abdomen: Normal bowel sounds. Soft. Obese. Extremities: No edema No clubbing or cyanosis. Pulses: radial=2/4, posterior tibial=2/4, dorsalis pedis = 2/4. NEURO: No focal deficits. PSYCH: Normal. Lab data/imaging study review: 2D echo report summary [facility] 02/26/21: LV systolic function is mildly reduced. Ejection fraction 40-45% Mild concentric left ventricular hypertrophy. Mild global hypokinesis. Moderate aortic valve sclerosis without stenosis. Mild mitral regurgitation. Impression/Plan: 1. Heart failure with reduced EF, NYHA class 3 EF 40-45% 02/2021. Euvolemic on exam. Weight is stable. No lower extremity edema and shortness of breath is at baseline. 1. Continue furosemide to 40 mg twice daily 2. Reduce spironolactone to 12.5 mg every Friday, Friday, Friday- repeat BMP in 1 week okay to have this done in [place]. 3. Continue metoprolol succinate 25 mg in the morning and 12.5 mg in the evening 4. Continue lisinopril 2.5 mg daily 5. Once patient is optimized on goal-directed medical therapy can consider repeating echocardiogramat that time- will discuss at follow-up appointment. 2. Nonischemic cardiomyopathy Cardiac catheterization performed 11/2020 in [place] demonstrated mild nonobstructive CAD 3. Permanent Atrial Fibrillation [id number] score of 5 (age 1, female, CHF, [...] 70 1. Continue Lipitor 40 mg daily Patient Instructions 1. Continue Metoprolol 1 tab in the morning and 1/2 tablet in the evening 2. Reduce Spironalactone to 1/2 tablet every Friday, Friday, and Friday 3. Labs in 1 week. Okay to have this done in [place] 4. Watch for swollen ankles and worsening shortness of breath. [facility] Cardiology number: (ask to be connected to [facility] cardiology) The patient agrees to the above plan and will call with additional questions or concerns. ER with all emergencies advised. Follow-up: Return in about 6 weeks (around 08/23/2021). | Check-out note: Lab work in 1 week at [facility] I spent a total of 35 minutes on the date of service in preparation, delivery, and documentation ofthe care provided to Nina Harrington excluding any time spent in the performance of separately billedservices. NIECY Shepard edilma, Department of Cardiology This chart was completed in part utilizing [employer] Speech Voice Recognition Software. Grammatical errors, random [...] documented in this encounter Nursing Notes * Carmen Mejia LPN - 07/12/2021 1:28 PM EDT Patient was identified by name and date of . Name: Nina Harrington Date of : (1940). Examination Room: 4 Reason for Visit: Chief Complaint Patient presents with Follow Up Interim Hospitalization(s): NO Interim Emergency room visit(s): NO Chest Pain: No SOB: No Problems/Concerns: Yes med questions Medications reviewed and are up to date via: Patient's memory Would you like to sign up for [facility]? ALREADY ACTIVE Patient was instructed to not get up on the exam table/exam chair until directed and assisted by their provider; patient is to remain seated in the chair/ wheelchair/ exam table/ exam chair for fall prevention and safety reasons. Patient is aware to have assistance to step down off exam table/exam chair with personnel. Patient voiced full comprehension of instructions. Carmen Mejia LPN 1:28 PM 07/12/2021 documented in this encounter Plan of Treatment Upcoming Encounters Date Type Specialty Care Team Description 07/19/2021 Laboratory Laboratory [address] [place] [address] [phone] 08/07/2021 Laboratory Laboratory [address] [place] [address] [phone] 08/08/2021 Nurse Only Ancillary Im, Nurse [facility] [address] [place] [address] [phone] 08/14/2021 Office Visit Internal Medicine Marcela Pinto MD [address] [place] [address] [phone] 08/23/2021 Office Visit Cardiology [facility]ce [facility]ino CR[facility] [address] [facility] [address] [phone] Scheduled Orders Name Type Priority Associated Diagnoses Orde r Schedule BASIC METABOLIC PANEL Lab Routine Chronic 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) NICM (nonischemic cardiomyopathy) (HCC) Presence of Watchman left atrial appendage closure device Expected: 07/18/2021, Expires: 07/12/2022 Health Maintenance Due Date Last Done Comments Zoster Vaccines (2 of 3) 08/31/2012 07/06/2012 *DEPRESSION SCREENING,ANNUAL FOR PTS 12 AND OVER 06/24/2021 DIABETES-HGBA1C EVERY 6 MONTHS 09/09/2021 03/09/2021, 12/05/2020, 08/10/2020, Additional history exists CKD GFR USE SMARTSET 02041 12/18/202106/20, 06/12/2021, 05/28/2021, Additional history exists DIABETES-FOOT EXAM 12/21/2021 12/21/2020, 0 10/19/2019, 01/05/2019, Additional history exists CKD PHOS USE SMARTSET 06417 03/09/2022 03/09/2021, 0 03/22/2019 DIABETES-EYE EXAM 03/26/2022 03/26/2021, , 08/10/2019, Additional history exists CKD HGB USE SMARTSET 73880 05/28/202205/28, 05/21/2021, 05/18/2021, Additional history exists Dexa [...] as of this encounter Visit Diagnoses Diagnosis Permanent atrial fibrillation (HCC)- Primary Atrial fibrillation Chronic 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) NICM (nonischemic cardiomyopathy) (HCC) Other primary cardiomyopathies Presence of Watchman left atrial appendage closure device Dyslipidemia, goal LDL below 70 Other and unspecified hyperlipidemia HTN, goal below 140/90 Unspecified essential hypertension documented in this encounter Advance Directives Documents on File Type Date Recorded 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
--- OUTSIDE RECORDS SUMMARY | 2023-06-18 03:06 | External Medical Summary | Summary of Care ---
Author Name Unknown Organization [place] [address] Care Team Providers Care Yard Jockey Name Role Phone Marcela Pinto MD Primary Care Provider + Reason for Visit * Reason Onset Date Comments Test Results 06/26/2021 Encounter Details Date Type Department Care Team Description 06/26/2021 Telephone Cardiology, [facility] [address] [place] [address] Dulce Merino CRNP [address] [place] [address] Test Results Allergies Active Allergy Reactions Severity Noted Date Comments Valsartan 07/10/2010 Enalapril 05/21/2006 Escitalopram Oxalate Nausea/vomiting 10/11/2009 Nauseated Iodinated Diagnostic Agents Nausea/vomiting 05/2010 IV Contrast Iodine Hives 12/18/2009 IV Contrast Metoprolol Tartrate 11/18/2006 Made pulse low [place] Oil-Black Currant-Vit E 07/10/2010 Verapamil 03/21/2004 Bupropion Hcl 10/30/2009 Makes pt sick in the stomach documented as of this encounter (statuses as of 06/27/2021) Medications Medication Sig Dispensed Refills Start Date [...] DAYS NEEDED FOR CONSTIPATION 0 11/26/2017 Active Nebulizers (NEBULIZER COMPRESSOR) MISC Inhale via nebulizer. Use as directed. Please give tubing to use with it. 1 Each 1 11/12/2018 Active glimepiride (AMARYL) 4 MG TabletIndications:T ype [...] J45.909, J44.9 225 mL 1 06/29/2019 Active zoster vac recomb adjuvanted (SHINGRIX) 50 MCG/0.5ML injectionIndication s:Need for shingles vaccine Inject 0.5 mL into a large muscle now and repeat dose in 60 to 180 days. Please fax date this was given to our office. 1 Each 1 10/19/2019 Active Albuterol Sulfate (VENTOLIN HFA) 108 (90 Base) MCG/ACT AERS Inhale 2 Puffs by mouth 2 times a day. 0 12/27/2019 Active Lancets MISCIndications:Typ e 2 diabetes mellitus with hemoglobin A1c goal of less than 7.0% ([facility]) Use as directed. USE TO TEST BLOOD [...] EVERY DAY 90 Tab 2 01/25/2021 Active Spironolactone 25 MG Oral Tablet (Aldactone)Indicati ons:Chronic systolic heart failure (HCC) Take 0.5 Tabs by mouth daily. 30 Tab 3 03/05/2021 Active Omeprazole 20 MG Oral Capsule Delayed [...] HOURS NEEDED FOR NAUSEA 60 Tab 0 04/03/2021 Active Klor-Con M20 20 MEQ Oral Tablet [...] EVERY DAY 90 Tab 3 05/18/2021 Active Fludrocortisone Acetate 0.1 MG Oral Tablet (Florinef) TAKE 1 TABLET BY MOUTH EVERY DAY 30 Tab 1 06/11/2021 Active Additional Information Patient not taking. Reported on 06/25/2021 methIMAzole 10 MG Oral Tablet (Tapazole)Indicatio ns:Hyperthyroidism Take 1 Tab by mouth daily. 30 Tab 3 06/12/2021 Active HYDROcodone-Acetami nophen 5-325 MG Oral TabletIndications:G eneralized osteoarthritis Take 1 Tab by mouth every 6 hours as needed for Pain, Mild. 120 Tab 0 06/13/2021 Active Furosemide 40 MG Oral Tablet (Lasix)Indications: Chronic systolic heart failure (HCC),Paroxysmal atrial fibrillation (HCC),Chronic 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),NICM (nonischemic cardiomyopathy) (HCC),Chronic atrial fibrillation (HCC),Hospital discharge follow-up,Presence of Watchman left atrial appendage closure device 40 mg in AM, 40 mg in PM 270 Tab 1 06/13/2021 Active Metoprolol Succinate ER 25 MG Oral Tablet Extended Release 24 Hour (toPROL XL)Indications:Wrapper Operator akin systolic heart failure (HCC),Paroxysmal atrial fibrillation (HCC),Chronic 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),NICM (nonischemic cardiomyopathy) (HCC),Chronic atrial fibrillation (HCC),Hospital discharge follow-up,Presence of Watchman left atrial appendage closure device,Hyperlipidem ia with target LDL less than 100 Take 1 tablet in the morning and 0.5 tablet in the evening. 135 Tab 3 06/26/2021 Active Atorvastatin Calcium 80 MG Oral Tablet (Lipitor)Indication s:Hyperlipidemia with target LDL less than 100,Chronic systolic heart failure (HCC),Paroxysmal atrial fibrillation (HCC),Chronic 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),NICM (nonischemic cardiomyopathy) (HCC),Chronic atrial fibrillation (HCC),Hospital discharge follow-up,Presence of Watchman left atrial appendage closure device Take 1 Tab by mouth daily. 90 Tab 3 06/26/2021 Active Atorvastatin Calcium 40 MG Oral Tablet (Lipitor)Indication s:Hyperlipidemia with target LDL less than 100 TAKE 1 TABLET BY MOUTH EVERY DAY 90 Tab 1 05/18/2021 1 Discontinue d(Refill) Metoprolol Succinate ER 25 MG Oral Tablet Extended Release 24 Hour (toPROL XL)Indications:Wrapper Operator akin systolic heart failure (HCC),Paroxysmal atrial fibrillation (HCC),Chronic 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),NICM (nonischemic cardiomyopathy) (HCC),Chronic atrial fibrillation (HCC),Hospital discharge follow-up,Presence of Watchman left atrial appendage closure device Take 0.5 Tabs by mouth 2 times a day. 30 Tab 5 06/14/2021 1 Discontinue d(Refill) documented as of this encounter (statuses as of 06/27/2021) Active Problems Problem Noted Date Type 2 diabetes mellitus with stage 3a [...] as of this encounter (statuses as of 06/27/2021) Resolved Problems Problem Noted Date Resolved Date [...] Hypoxemia 10/08/2011 10/30/2015 Genetic Sleep Disorder Research Other*[id number] 07/25/2011 05/15/2016 Diverticulitis of colon 07/25/2011 01/06/20 [...] as of this encounter (statuses as of 06/27/2021) Immunizations Name Administration Dates Next Due COVID-19 [...] encounter Miscellaneous Notes * Telephone Encounter - Tamara Ortega, bottom loader - 06/27/2021 2:17 PM EDT Pt calling in requesting clarification on dosage for medication. Informed pt. Thank you, Tamara Ortega [facility] 06/27/2021, 2:25 PM * Telephone Encounter - Joanna Owen OSA - 06/26/2021 4:27 PM EDT Spoke with pt. Pt is scheduled 08/07/21 for fasting labs. * Telephone Encounter - Dulce Merino CRNP - 06/26/2021 4:09 PM EDT Orders signed. Scheduling, places this patient was scheduling fasting lab work in about 6 weeks. Thanks, NIECY Gonzalez * Telephone Encounter - Dionte Billy LPN - 06/26/2021 4:03 PM EDT Called patient and informed of Dulce's message. Patient verbalized understanding. Labs ordered. Medication pended. ----- Message from NIECY Holder sent at 06/21/2021 7:02 AM EDT ----- LDL above goal of below 70- currently 95. Would recommend increasing Lipitor to 80 mg daily, repeatfasting cholesterol panel and LFTs in about 6 weeks. Should patient be unable to tolerate increaseddose of Lipitor can consider switching to Crestor 40 mg daily. * Telephone Encounter - Dionte Billy LPN - 06/26/2021 3:59 PM EDT Called patient and informed of Dulce's message. Patient verbalized understanding. Medication pended. ----- Message from NIECY Holder sent at 06/26/2021 10:53 AM EDT ----- Patient had 100% atrial fibrillation burden with an average heart rate of 77 beats per minute. Patient had frequent ventricular ectopy and short salvos of V- tach. Recommend increasing her metoprolol succinate to 25 mg in the morning and 12.5 mg in the evening. Keep follow-up appointment with me on 07/12. documented in this encounter Plan of Treatment Upcoming Encounters Date Type Specialty Care Team Description 07/10/2021 Office Visit Internal Medicine Marcela Pinto MD [address] [facility] [place] [address] [phone] 07/12/2021 Office Visit Cardiology [facility] CR[facility] [address] [phone] 08/07/2021 Laboratory Laboratory [address] [place] [address] [phone] 08/08/2021 Nurse Only Ancillary Im, Nurse Annual Wellness [facility] [address] [facility] [place] [address] [phone] 08/14/2021 Office Visit Internal Medicine Marcela Pinto MD [address] [facility] [place] [address] [phone] Scheduled Orders Name Type Priority Associated Diagnoses Orde r Schedule LIPID PANEL WITH DIRECT LDL IF TG IS HIGH Lab Routine Hyperlipidemia with target LDL less than 100 Expected: 08/09/2021 (Approximate), Expires: 06/26/2022 HEPATIC FUNCTION PANEL Lab Routine Hyperlipidemia with target LDL less than 100 Expected: 08/09/2021 (Approximate), Expires: 06/26/2022 LIPID PANEL WITH DIRECT LDL IF TG IS HIGH Lab Routine Chronic systolic heart failure (HCC) Paroxysmal atrial fibrillation (HCC) Chronic 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) NICM (nonischemic cardiomyopathy) (HCC) Chronic atrial fibrillation (HCC) Hospital discharge follow-up Presence of Watchman left atrial appendage closure device Hyperlipidemia with target LDL less than 100 Expected: 07/26/2021, Expires: 06/26/2022 HEPATIC FUNCTION PANEL Lab Routine Chronic systolic heart failure (HCC) Paroxysmal atrial fibrillation (HCC) Chronic 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) NICM (nonischemic cardiomyopathy) (HCC) Chronic atrial fibrillation (HCC) Hospital discharge follow-up Presence of Watchman left atrial appendage closure device Hyperlipidemia with target LDL less than 100 Expected: 07/26/2021, Expires: 06/26/2022 Health Maintenance Due Date Last Done Comments Zoster Vaccines (2 of 3) 08/31/2012 07/06/2012 Influenza Vaccine (FLU shot) (#1) 2021 06/22/2020, 07/09/2019, 06/16/2018, Additional history exists *DEPRESSION SCREENING,ANNUAL FOR PTS 12 AND OVER 06/24/2021 DIABETES-HGBA1C EVERY 6 MONTHS 09/09/2021 03/09/2021, 12/05/2020, 08/10/2020, Additional history exists DIABETES-FOOT EXAM 12/21/2021 12/21/2020, 0 10/19/2019, 01/05/2019, Additional history exists DIABETES-EYE EXAM 03/26/2022 03/26/2021, , 08/10/2019, Additional history exists Dexa Scan 08/08/2025 08/08/2020, 04/13, 06/19/2010, Additional history exists DTaP,Tdap,and Td Vaccines (2 - Td) 06/04/2028 06/04/2018, 02/28/2009 Pneumococcal Vaccine: 65+ Years Completed 03/28/2015, 05/21/2006 COVID-19 Vaccine Completed 12/22/2020, 2020 MENINGOCOCCAL (MENACTRA/MENVEO) Aged Out No longer [...] Documents on File Type Date Recorded Patient Public Relations Consultant Expl 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
--- OUTSIDE RECORDS SUMMARY | 2023-06-18 03:06 | External Medical Summary | Summary of Care ---
Author Name Unknown Organization [place] [address] Care Team Providers Care Instructor Of Nursing Name Role Phone Marcela Pinto MD Primary Care Provider + Reason for Visit * Reason Comments Blood Pressure Check Encounter Details Date Type Department Care Team Description 06/20/2021 Cardiac Studies Cardiac Studies, [facility] [address] [place] [address] [facility], Nurse Cardio [facility] [address] [place] [address] HTN, goal below 130/80* Allergies Active Allergy Reactions Severity Noted Date Comments Valsartan 07/10/2010 Enalapril 05/21/2006 Escitalopram Oxalate Nausea/vomiting 10/11/2009 Nauseated Iodinated Diagnostic Agents Nausea/vomiting 05/2010 IV Contrast Iodine Hives 12/18/2009 IV Contrast Metoprolol Tartrate 11/18/2006 Made pulse low [place] Oil-Black Currant-Vit E 07/10/2010 Verapamil 03/21/2004 Bupropion Hcl 10/30/2009 Makes pt sick in the stomach documented as of this encounter (statuses as of 06/20/2021) Medications Medication Sig Dispensed Refills Start Date [...] 2 times a day. 0 04/09/2021 Active Atorvastatin Calcium 40 MG Oral Tablet (Lipitor)Indication s:Hyperlipidemia with target LDL less than 100 TAKE 1 TABLET BY MOUTH EVERY DAY 90 Tab 1 05/18/2021 Active Zafirlukast 20 MG Oral Tablet (Accolate)Indicatio ns:Asthma with severity to be determined TAKE 1 TABLET BY MOUTH EVERY DAY 90 Tab 3 05/18/2021 Active Fludrocortisone Acetate 0.1 MG Oral Tablet (Florinef) TAKE 1 TABLET BY MOUTH EVERY DAY 30 Tab 1 06/11/2021 Active methIMAzole 10 MG Oral Tablet (Tapazole)Indicatio [...] Oral Tablet Extended Release 24 Hour (toPROL XL)Indications:Enrobing Machine Feeder akin systolic heart failure (HCC),Paroxysmal atrial fibrillation (HCC),Chronic 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),NICM (nonischemic cardiomyopathy) (HCC),Chronic atrial fibrillation (HCC),Hospital discharge follow-up,Presence of Watchman left atrial appendage closure device Take 0.5 Tabs by mouth 2 times a day. 30 Tab 5 06/14/2021 Active predniSONE 10 MG Oral Tablet (Deltasone) Take by mouth. Taper as directed. Take 4 tabs daily x 4 days, then take 3 tabs daily x 3 days, then take 2 tabs daily x 2 days, then take 1 tab daily x 2 days, then stop. 0 06/12/2021 Active Glimepiride 2 MG Oral Tablet (Amaryl) TAKE 1 TABLET BY MOUTH EVERY DAY WITH BREAKFAST 30 Tab 0 06/12/2021 1 Discontinue d(Medicatio n List Clean Up) documented as of this encounter (statuses as of 06/20/2021) Active Problems Problem Noted Date Type 2 [...] as of this encounter (statuses as of 06/20/2021) Resolved Problems Problem Noted Date Resolved Date [...] Hypoxemia 10/08/2011 10/30/2015 Genetic Sleep Disorder Research Other*[id number] 07/25/2011 05/15/2016 Diverticulitis of colon 07/25/2011 01/06/20 [...] as of this encounter (statuses as of 06/20/2021) Immunizations Name Administration Dates Next Due COVID-19 [...] Used Tobacco Cessation:Counseling Given: No Alcohol Use Drinks/Week oz/Week Comments No Food [...] Sign Reading Time Taken Comments Blood Pressure 112/72 06/20/2021 1:33 PM EDT Pulse 84 06/20/2021 1:33 PM EDT Temperature - - Respiratory Rate 16 06/20/2021 1:33 PM EDT Oxygen Saturation - - Inhaled Oxygen Concentration - - Weight 115.4 kg (254 lb 6.4 oz) 06/20/2021 1:33 PM EDT Height - - Body Mass Index 42.33 03/05/2021 8:32 AM EDT documented in this encounter Progress Notes * Ida Meza RN - 06/20/2021 2:08 PM EDT Nina Harrington presented for blood pressure check per provider orders. The blood pressure was obtained using the left arm in the sitting position using a adult large cuff. The results were charted in Vital Signs. BP 112/72 (BP Site: Left Arm, BP Position: Sitting, BP Cuff Size: Large) | Pulse 84 | Resp 16 | Wt 115.4 kg (254 lb 6.4 oz) | BMI 42.33 kg/m | BSA 2.3 m Patient denies headache, pressure in head, dizziness, lightheadedness, chest discomfort, focal neurological symptoms, change in vision, nose bleeds. Did patient take medications today? Yes Patient was instructed to follow-up as per their next scheduled appt. Lab work obtained today. documented in this encounter Plan of Treatment Upcoming Encounters Date Type Specialty Care Team Description 06/25/2021 Home Visit Family Medicine Lacy Grant, [address] [place] [address] [phone] 07/10/2021 Office Visit Internal Medicine Marcela Pinto MD 200 [facility] [place] [address] [phone] 07/12/2021 Office Visit Cardiology Dulce Merino CRNP [address] [facility] [address] [phone] 08/08/2021 Nurse Only Ancillary Im, Nurse Annual Wellness [facility] [address] [facility] [place] [address] [phone] 08/14/2021 Office Visit Internal Medicine Marcela Pinto MD [address] [facility] [place] [address] [phone] Scheduled Orders Name Type Priority Associated Diagnoses Orde r Schedule BLOOD PRESSURE Procedures Routine HTN, goal below 130/80 Ordered: 06/20/2021 Health Maintenance Due Date Last Done Comments Zoster Vaccines (2 of 3) 08/31/2012 07/06/2012 Influenza Vaccine (FLU shot) (#1) 2021 06/22/2020, 07/09/2019, 06/16/2018, Additional history exists DIABETES-HGBA1C EVERY 6 MONTHS 09/09/2021 03/09/2021, 12/05/2020, [...] encounter Visit Diagnoses Diagnosis HTN, goal below 130/80- Primary Unspecified essential hypertension documented in this encounter Advance Directives Documents on File Type Date Recorded Patient Sheep Rancher Expl anation Advanced 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
--- OUTSIDE RECORDS SUMMARY | 2023-06-18 03:06 | External Medical Summary | Summary of Care ---
Author Name Unknown Organization [facility] [address] Care Team Providers Care Qc Manager Name Role Phone Marcela Pinto MD Primary Care Provider + Reason for Visit * Reason Onset Date Comments case management 06/21/2021 Encounter Details Date Type Department Care Team Description 06/21/2021 Carton Inspector Telephone Family Practice [facility] [address] [place] [address] Cici Gama RN [address] [place] [address] [phone] case management Allergies Active Allergy Reactions Severity Noted Date Comments Valsartan 07/10/2010 Enalapril 05/21/2006 Escitalopram Oxalate Nausea/vomiting 10/11/2009 Nauseated Iodinated Diagnostic Agents Nausea/vomiting 05/2010 IV Contrast Iodine Hives 12/18/2009 IV Contrast Metoprolol Tartrate 11/18/2006 Made pulse low [place] Oil-Black Currant-Vit E 07/10/2010 Verapamil 03/21/2004 Bupropion Hcl 10/30/2009 Makes pt sick in the stomach documented as of this encounter (statuses as of 06/21/2021) Medications Medication Sig Dispensed Refills Start Date [...] 1 11/12/2018 Active glimepiride (AMARYL) 4 MG TabletIndications:Ty pe [...] zoster vac recomb adjuvanted (SHINGRIX) 50 MCG/0.5ML injectionIndications :Need for shingles vaccine Inject 0.5 mL into [...] 01/25/2021 Active Spironolactone 25 MG Oral Tablet (Aldactone)Indicatio ns:Chronic systolic heart failure (HCC) Take 0.5 Tabs [...] 05/18/2021 Active Zafirlukast 20 MG Oral Tablet (Accolate)Indication s:Asthma with severity to be determined TAKE 1 TABLET BY MOUTH EVERY DAY 90 Tab 3 05/18/2021 Active Fludrocortisone Acetate 0.1 MG Oral Tablet (Florinef) TAKE 1 TABLET BY MOUTH EVERY DAY 30 Tab 1 06/11/2021 Active methIMAzole 10 MG Oral Tablet (Tapazole)Indication s:Hyperthyroidism Take 1 Tab by mouth daily. 30 Tab 3 06/12/2021 Active HYDROcodone-Acetamin ophen 5-325 MG Oral TabletIndications:Ge neralized osteoarthritis Take 1 Tab by mouth every 6 hours as needed for Pain, Mild. 120 Tab 0 06/13/2021 Active Furosemide 40 MG Oral Tablet (Lasix)Indications:C [...] Extended Release 24 Hour (toPROL XL)Indications:Chron ic systolic heart failure (HCC),Paroxysmal atrial fibrillation (HCC),Chronic [...] x 2 days, then stop. 0 06/12/2021 06/22/2021 Active documented as of this encounter (statuses as of 06/21/2021) Active Problems Problem Noted Date Type 2 [...] as of this encounter (statuses as of 06/21/2021) Resolved Problems Problem Noted Date Resolved Date [...] Hypoxemia 10/08/2011 10/30/2015 Genetic Sleep Disorder Research Other*[id number] 07/25/2011 05/15/2016 Diverticulitis of colon 07/25/2011 01/06/20 [...] as of this encounter (statuses as of 06/21/2021) Immunizations Name Administration Dates Next Due COVID-19 mRNA, LNP-s, No Pre serve, 2-Dose Series ([employer]) 12/22/2020,2020 Hepatitis B, 20+ yrs 10/01/2017,04/21/2017,03/20 [...] Telephone Encounter - Cici Gama RN - 06/21/2021 5:18 PM EDT Met with Lacy MOELLER. Discussed patient needs and risks. Gave her some samples/coupons of Glucerna to take to patient at home visit. Home visit is scheduled for 06/25/21. documented in this encounter Plan of Treatment Upcoming Encounters Date Type Specialty Care Team Description 06/25/2021 Home Visit Family Medicine Lacy Grant, [facility] Health Fermentation Manager [address] [place] [address] [place] [address] [phone] 07/10/2021 Office Visit Internal Medicine Marcela Pinto MD 200 [facility] [place] [address] [phone] 07/12/2021 Office Visit Cardiology Dulce [facility]ino CRNP [address] [facility] [place] [address] [phone] 08/08/2021 Nurse Only Ancillary Im, Nurse Annual Wellness [facility] [address] [place] [address] [phone] 08/14/2021 Office Visit Internal Medicine Marcela Pinto MD [address] [place] [address] [phone] Health Maintenance Due Date Last Done Comments [...] Documents on File Type Date Recorded Patient Insurance Service Representative Expl 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
--- OUTSIDE RECORDS SUMMARY | 2023-06-18 03:06 | External Medical Summary | Summary of Care ---
Author Name Unknown Organization [place] [address] Care Team Providers Care Stull Installer Name Role Phone Marcela Pinto MD Primary Care Provider + Reason for Visit * Reason Onset Date Comments Test Results 06/22/202106/22 Encounter Details Date Type Department Care Team Description 06/22/2021 Telephone General Internal Medicine [facility] 200 [facility] [place] [address] Marcela Pinto MD 200 [place] [address] [phone] Test Results (06/22) Allergies Active Allergy Reactions Severity Noted Date Comments Valsartan 07/10/2010 Enalapril 05/21/2006 Escitalopram Oxalate Nausea/vomiting 10/11/2009 Nauseated Iodinated Diagnostic Agents Nausea/vomiting 05/2010 IV Contrast Iodine Hives 12/18/2009 IV Contrast Metoprolol Tartrate 11/18/2006 Made pulse low [place] Oil-Black Currant-Vit E 07/10/2010 Verapamil 03/21/2004 Bupropion Hcl 10/30/2009 Makes pt sick in the stomach documented as of this encounter (statuses as of 06/22/2021) Medications Medication Sig Dispensed Refills Start Date [...] as of this encounter (statuses as of 06/22/2021) Active Problems Problem Noted Date Type 2 [...] as of this encounter (statuses as of 06/22/2021) Resolved Problems Problem Noted Date Resolved Date [...] Hypoxemia 10/08/2011 10/30/2015 Genetic Sleep Disorder Research Other*[id number] 07/25/2011 05/15/2016 Diverticulitis of colon 07/25/2011 01/06/20 [...] as of this encounter (statuses as of 06/22/2021) Immunizations Name Administration Dates Next Due COVID-19 mRNA, LNP-s, No Pre serve, 2-Dose Series ([employer]) 12/22/2020,2020 Hepatitis B, 20+ yrs 10/01/2017,04/21/2017,03/20 Pneumococcal [...] encounter Miscellaneous Notes * Telephone Encounter - Tra Murphy OSA - 06/22/2021 10:37 AM EDT Patient has been notified of the message. Patient has no further questions. * Telephone Encounter - Hiwot Valladares LPN - 06/22/2021 10:13 AM EDT Left generic message on answering machine asking pt to return our call. Please inform patient of detailed result message below. * Telephone Encounter - Hiwot Valladares LPN - 06/22/2021 10:10 AM EDT ----- Message from Marcela Pinto MD sent at 06/20/2021 3:21 PM EDT ----- Repeat blood work shows much better renal panel. Continue current meds, hydration. documented in this encounter Plan of Treatment Upcoming Encounters Date Type Specialty Care Team Description 06/25/2021 Home Visit Family Medicine Lacy Grant, [facility] [employer] Fabricator Trimmer [address] [place] [address] [place] [address] [phone] 07/10/2021 Office Visit Internal Medicine Marcela Pinto MD [address] [place] [address] [phone] 07/12/2021 Office Visit Cardiology [facility] [address] [facility] [address] [phone] 08/08/2021 Nurse Only Ancillary Im, Nurse Annual Wellness [place] [place] [address] [place] [address] [phone] 08/14/2021 Office Visit Internal Medicine Marcela Pinto MD [address] [place] [address] [phone] Health Maintenance Due Date Last Done Comments [...] Documents on File Type Date Recorded Patient Spot Washer Expl 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
--- OUTSIDE RECORDS SUMMARY | 2023-06-18 03:06 | External Medical Summary | Summary of Care ---
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 Role Phone Marcela Pinto MD Primary Care Provider + Reason for Visit * Reason Onset Date Comments Advice 07/02/2021 Encounter Details Date Type Department Care Team Description 07/02/2021 Telephone Cardiology, [facility] [address] [place] [address] Dulce Merino CRNP [address] [place] [address] Advice Allergies Active Allergy Reactions Severity Noted Date Comments Valsartan 07/10/2010 Enalapril 05/21/2006 Escitalopram Oxalate Nausea/vomiting 10/11/2009 Nauseated Iodinated Diagnostic Agents Nausea/vomiting 05/2010 IV Contrast Iodine Hives 12/18/2009 IV Contrast Metoprolol Tartrate 11/18/2006 Made pulse low [place] Oil-Black Currant-Vit E 07/10/2010 Verapamil 03/21/2004 Bupropion Hcl 10/30/2009 Makes pt sick in the stomach documented as of this encounter (statuses as of 07/02/2021) Medications Medication Sig Dispensed Refills Start Date [...] 1 11/12/2018 Active glimepiride (AMARYL) 4 MG TabletIndications:Typ e [...] zoster vac recomb adjuvanted (SHINGRIX) 50 MCG/0.5ML injectionIndications: Need for shingles vaccine Inject 0.5 mL into [...] than 7.0% (FORMERLY [facility]) Use as directed. USE TO TEST [...] 01/25/2021 Active Spironolactone 25 MG Oral Tablet (Aldactone)Indication s:Chronic systolic heart failure (HCC) Take 0.5 Tabs [...] on 06/25/2021 methIMAzole 10 MG Oral Tablet (Tapazole)Indications :Hyperthyroidism Take 1 Tab by mouth daily. 30 Tab 3 06/12/2021 Active HYDROcodone-Acetamino phen 5-325 MG Oral TabletIndications:Gen eralized osteoarthritis Take 1 Tab by mouth every 6 hours as needed for Pain, Mild. 120 Tab 0 06/13/2021 Active Furosemide 40 MG Oral Tablet (Lasix)Indications:Ch [...] Extended Release 24 Hour (toPROL XL)Indications:Chroni c systolic heart failure (HCC),Paroxysmal atrial fibrillation (HCC),Chronic 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),NICM (nonischemic cardiomyopathy) (HCC),Chronic atrial fibrillation (HCC),Hospital discharge follow-up,Presence of Watchman left atrial appendage closure device,Hyperlipidemia with target LDL less than 100 Take [...] mouth daily. 90 Tab 3 06/26/2021 Active documented as of this encounter (statuses as of 07/02/2021) Active Problems Problem Noted Date Chronic kidney [...] as of this encounter (statuses as of 07/02/2021) Resolved Problems Problem Noted Date Resolved Date [...] Hypoxemia 10/08/2011 10/30/2015 Genetic Sleep Disorder Research Other*[id number] 07/25/2011 05/15/2016 Diverticulitis of colon 07/25/2011 01/06/20 [...] as of this encounter (statuses as of 07/02/2021) Immunizations Name Administration Dates Next Due COVID-19 mRNA, LNP-s, No Pre serve, 2-Dose Series ([employer]) 12/22/2020,2020 Hepatitis B, 20+ yrs 10/01/2017,04/21/2017,03/20 Pneumococcal [...] Telephone Encounter - Yoan Lawson LPN - 07/02/2021 1:14 PM EDT Pt verbalized understanding. * Telephone Encounter - Dulce Merino CRNP - 07/02/2021 12:26 PM EDT That is correct. Patient should not be on diltiazem. NIECY Gonzalez * Telephone Encounter - Yoan Lawson LPN - 07/02/2021 12:22 PM EDT See previous msg. Per review of chart, Diltiazem dc'd during 02/2021 admission at [facility] for CHF exacerbation. Med previously prescribed by Dr. Pinto. Please advise if this is correct? 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 She said that Dulce had changed some of her dosages, and was asking if this is a medication she should be taking, she is unsure where is would have come from, she was unsure if the hospital had sent or where it was prescribed from. Please advise. documented in this encounter Plan of Treatment Upcoming Encounters Date Type Specialty Care Team Description 07/10/2021 Office Visit Internal Medicine Marcela Pinto MD [address] [facility] [place] [address] [phone] 07/12/2021 Office Visit Cardiology [facility] CR[facility] [address] [facility] [address] [phone] 08/07/2021 Laboratory Laboratory [address] [place] [address] [phone] 08/08/2021 Nurse Only Ancillary Im, Nurse Annual Wellness [facility] [address] [facility] [place] [address] [phone] 08/14/2021 Office Visit Internal Medicine Marcela Pitno MD [address] [facility] [place] [address] [phone] Health Maintenance Due Date Last Done Comments Zoster Vaccines (2 of 3) 08/31/2012 07/06/2012 Influenza Vaccine (FLU shot) (#1) 2021 06/22/2020, 07/09/2019, 06/16/2018, Additional history exists *DEPRESSION SCREENING,ANNUAL FOR PTS 12 AND OVER 06/24/2021 DIABETES-HGBA1C EVERY 6 MONTHS 09/09/2021 03/09/2021, 12/05/2020, 08/10/2020, Additional history exists CKD GFR USE SMARTSET 90386 12/18/202106/20, 06/12/2021, 05/28/2021, Additional history exists DIABETES-FOOT EXAM 12/21/2021 12/21/2020, 0 10/19/2019, 01/05/2019, Additional history exists CKD PHOS USE SMARTSET 65987 03/09/2022 03/09/2021, 0 03/22/2019 DIABETES-EYE EXAM 03/26/2022 03/26/2021, , 08/10/2019, Additional history exists CKD HGB USE SMARTSET 03866 05/28/202205/28, 05/21/2021, 05/18/2021, Additional history exists Dexa [...] Documents on File Type Date Recorded 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
--- OUTSIDE RECORDS SUMMARY | 2023-06-18 03:06 | External Medical Summary | Summary of Care ---
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 Press Operator Name Role Phone Alex Pinto MD Primary Care Provider + Reason for Visit * Reason Comments eRx-Medication Refill Encounter Details Date Type Department Care Team Description 07/09/2021 Refill General Internal Medicine [facility] [address] [place] [address] Alex Pinto MD [address] [place] [address] [phone] Allergies Active Allergy Reactions Severity Noted Date Comments Valsartan 07/10/2010 Enalapril 05/21/2006 Escitalopram Oxalate Nausea/vomiting 10/11/2009 Nauseated Iodinated Diagnostic Agents Nausea/vomiting 05/2010 IV Contrast Iodine Hives 12/18/2009 IV Contrast Metoprolol Tartrate 11/18/2006 Made pulse low [place] Oil-Black Currant-Vit E 07/10/2010 Verapamil 03/21/2004 Bupropion Hcl 10/30/2009 Makes pt sick in the stomach documented as of this encounter (statuses as of 07/10/2021) Medications Medication Sig Dispensed Refills Start Date [...] l)Indications:Asthma with severity to be determined,COPD, moderate ([facility]) TAKE 1 PUFF BY [...] Oral Capsule Delayed Release (PriLOSEC)Indications :Ischemic colitis ([facility]) TAKE 1 CAPSULE BY [...] mouth daily. 90 Tab 3 06/26/2021 Active Glimepiride 2 MG Oral Tablet (Amaryl) TAKE 1 TABLET BY MOUTH EVERY DAY WITH BREAKFAST 30 Tab 0 07/10/2021 Active documented as of this encounter (statuses as of 07/10/2021) Active Problems Problem Noted Date Chronic kidney [...] as of this encounter (statuses as of 07/10/2021) Resolved Problems Problem Noted Date Resolved Date [...] Hypoxemia 10/08/2011 10/30/2015 Genetic Sleep Disorder Research Other*[id number] 07/25/2011 05/15/2016 Diverticulitis of colon 07/25/2011 01/06/20 [...] as of this encounter (statuses as of 07/10/2021) Immunizations Name Administration Dates Next Due COVID-19 mRNA, LNP-s, No Pre serve, 2-Dose Series ([employer]) 12/22/2020,2020 Hepatitis B, 20+ yrs 10/01/2017,04/21/2017,03/20 Pneumococcal [...] Telephone Encounter - Alex Pinto MD - 07/10/2021 1:54 PM EDT Signed Prescriptions: Disp Refills Glimepiride 2 MG Oral Tablet (Amaryl) 30 Tab 0 Sig: TAKE 1 TABLET BY MOUTH EVERY DAY WITH BREAKFAST Authorizing Provider: ALEX PINTO * Telephone Encounter - Sharonda Clark [facility] - 07/10/2021 1:31 PM EDT Pending Prescriptions: Disp Refills Glimepiride 2 MG Oral Tablet (Amaryl) [Ph*30 Tab 0 Sig: TAKE 1 TABLET BY MOUTH EVERY DAY WITH BREAKFAST * Telephone Encounter - Sharonda Clark [facility] - 07/10/2021 1:29 PM EDT Glimepiride D/C'd by RN at 06/20/21 Cardiac Studies office visit with no documentation as to why. Peradherence, it was last filled 06/12/21 for a 90 day supply. Please approve if appropriate. Thank You, Sharonda Clark [facility] Pharmacist Telepharmacy 07/10/2021, 1:31 PM documented in this encounter Plan of Treatment Upcoming Encounters Date Type Specialty Care Team Description 07/10/2021 Office Visit Internal Medicine Alex Pinto MD [address] [facility] [place] [address] [phone] 07/12/2021 Office Visit Cardiology [facility] [address] [facility] [address] [phone] 08/07/2021 Laboratory Laboratory [address] [place] [address] [phone] 08/08/2021 Nurse Only Ancillary Im, Nurse Annual Wellness [facility] [address] [place] [address] [address] [phone] 08/14/2021 Office Visit Internal Medicine Alex Pinto MD [address] [facility] [place] [address] [phone] Health Maintenance Due Date Last Done Comments Zoster Vaccines (2 of 3) 08/31/2012 07/06/2012 Influenza Vaccine (FLU shot) (#1) 2021 06/22/2020, 07/09/2019, 06/16/2018, Additional history exists *DEPRESSION SCREENING,ANNUAL FOR PTS 12 AND OVER 06/24/2021 DIABETES-HGBA1C EVERY 6 MONTHS 09/09/2021 03/09/2021, 12/05/2020, 08/10/2020, Additional history exists CKD GFR USE SMARTSET 12727 12/18/202106/20, 06/12/2021, 05/28/2021, Additional history exists DIABETES-FOOT EXAM 12/21/2021 12/21/2020, 0 10/19/2019, 01/05/2019, Additional history exists CKD PHOS USE SMARTSET 65540 03/09/2022 03/09/2021, 0 03/22/2019 DIABETES-EYE EXAM 03/26/2022 03/26/2021, , 08/10/2019, Additional history exists CKD HGB USE SMARTSET 76336 05/28/202205/28, 05/21/2021, 05/18/2021, Additional history exists Dexa [...] Documents on File Type Date Recorded Patient Siene Maker Expl 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
--- OUTSIDE RECORDS SUMMARY | 2023-06-18 03:06 | External Medical Summary | Summary of Care ---
Author Name Unknown Organization [place] [address] Care Team Providers Care Nutrition Helper Name Role Phone Marcela Pinto MD Primary Care Provider + Reason for Visit * Reason Comments [facility] Care Coordination Services Encounter Details Date Type Department Care Team Description 06/25/2021 Home Visit Care Coordination [address] [place], [place] [id number] Lacy Grant [address] [place] [id number] Type 2 diabetes mellitus with stage 3a chronic kidney disease, without long-term current use of insulin (HCC)*; Chronic hypoxemic respiratory failure (HCC); Chronic systolic heart failure (HCC); COPD, group B, 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 ([facility]); HTN, goal below 140/90; Pulmonary HTN (HCC); Morbid obesity with BMI of 40.0-44.9, adult ([facility]); Paroxysmal atrial fibrillation ([facility]); Asthma with severity to be determined Allergies Active Allergy Reactions Severity Noted Date Comments Valsartan 07/10/2010 Enalapril 05/21/2006 Escitalopram Oxalate Nausea/vomiting 10/11/2009 Nauseated Iodinated Diagnostic Agents Nausea/vomiting 05/2010 IV Contrast Iodine Hives 12/18/2009 IV Contrast Metoprolol Tartrate 11/18/2006 Made pulse low Stacy Oil-Black Currant-Vit E 07/10/2010 Verapamil 03/21/2004 Bupropion Hcl 10/30/2009 Makes pt sick in the stomach documented as of this encounter (statuses as of 06/25/2021) Medications Medication Sig Dispensed Refills Start Date [...] hemoglobin A1c goal of less than 7.0% ([facility]) Use as directed. USE TO [...] l)Indications:Asthma with severity to be determined,COPD, moderate ([facility] [...] Oral Capsule Delayed Release (PriLOSEC)Indications :Ischemic colitis ([facility]) TAKE 1 CAPSULE BY MOUTH [...] Active Atorvastatin Calcium 40 MG Oral Tablet (Lipitor)Indications: Hyperlipidemia with target LDL less than 100 TAKE 1 TABLET BY MOUTH EVERY DAY 90 Tab 1 05/18/2021 Active Zafirlukast 20 MG Oral Tablet (Accolate)Indications [...] a day. 30 Tab 5 06/14/2021 Active documented as of this encounter (statuses as of 06/25/2021) Active Problems Problem Noted Date Type 2 [...] as of this encounter (statuses as of 06/25/2021) Resolved Problems Problem Noted Date Resolved Date [...] Hypoxemia 10/08/2011 10/30/2015 Genetic Sleep Disorder Research Other*[id number] 07/25/2011 05/15/2016 Diverticulitis of colon 07/25/2011 01/06/20 [...] as of this encounter (statuses as of 06/25/2021) Immunizations Name Administration Dates Next Due COVID-19 mRNA, LNP-s, No Pre serve, 2-Dose Series ([employer]) 12/22/2020,2020 Hepatitis B, 20+ yrs 10/01/2017,04/21/2017,03/20 Pneumococcal [...] Sign Reading Time Taken Comments Blood Pressure 100/60 06/25/2021 11:00 AM EDT Pulse 66 06/25/2021 11:00 AM EDT Temperature 36.4 C (97.5 F) 06/25/2021 11:00 AM E DT Respiratory Rate 16 06/25/2021 11:00 AM EDT Oxygen Saturation 96% 06/25/2021 11:00 AM EDT Inhaled Oxygen Concentration - - Weight - - Height - - Body Mass Index - - documented in this encounter Progress Notes * Lacy Grant, Community Health Tenderizer Tender - 06/25/2021 11:30 AM EDT Community Health Tenderizer Tender Visit Date: 06/25/2021 Time: 11:30 AM Name: Nina Harrington : 1940 Referral Source: junior project manager Source of Information: Patient Spoken language: Maori Patient can read in Maori: Yes. Director Work needed: No. COVID-19 screening completed: Yes Vitals: Vital signs completed: Yes, vital signs within normal range. BP 100/60 | Pulse 66 | Temp 36.4 C (97.5 F) | Resp 16 | SpO2 96% Condition Changes: Changes in health or social status since last visit: Initial SAJAN visit SAJAN referral per RNCM - Recent ER with COPD exacerbation. Very High risk for admissions/ER visits at 95%. [facility] HV to assess for needs, CAT survey, safety assessment, assess use of inhalers/nebulizer -and cleaning of such. Provide Glucerna and coupons for patient. Finished steroids. Feels they've helped her. Still become SOB with exertion - even walking short distances - for ex from kitchen to bedroom to get her medications. Had to use combivent inhaler to gether breath. The patient has new concerns since last visit: No Progress towards goals since last visit: Not specified Medications: Medication review completed? Yes, gaps identified and escalated to nurse/provider: taking less amaryl than ordered. Please see reviewed med list Does the patient have barriers to medication adherence? No. Patient states she has a good understanding of what medication she is to take and when. Stores medications in bottles in a large basin. Offered pill box, patient declined Patient reports difficulty paying for medications or might in the future: No. Telehealth: This is a telehealth visit: No. Symptoms Surveys and Evaluations: MA[facility]10 completed this visit: Yes. = 5, indicating at risk for falls . Score is greater than 4? Yes, notified Provider/Jewelry Sales Associate Last flowsheet values for [facility]: Age 65+: 1 (06/28/2020 2:00 PM) Diagnosis (3 or more co-existing): 1 (06/28/2020 2:00 PM) Prior history of falls within 3 months: 0 (06/28/2020 2:00 PM) Incontinence: 0 (06/28/2020 2:00 PM) Visual impairment: 0 (06/28/2020 2:00 PM) Impaired functional mobility: 0 (06/28/2020 2:00 PM) Environmental hazards: 0 (06/28/2020 2:00 PM) Poly Pharmacy (4 or more prescriptions - any type): 1 (06/28/2020 2:00 PM) Pain affecting level of function: 0 (06/28/2020 2:00 PM) Cognitive impairment: 0 (06/28/2020 2:00 PM) Score - a score of 4 or more is considered at risk for fallin (06/28/2020 2:00 PM) COPD Checklist COPD SAJAN (Community Health Tenderizer Tender) Checklist The patient uses oxygen: Yes Tanks are stored: in living room - away from anything flamable. Compressor located away from anything flammable: yes Oxygen tubing: - Clean and in good repair: Yes - Reached out to Durable Medical Equipment supplier for replacement tubing: No, has replacement tubing, replaces as needed - Referred to Jewelry Sales Associate for additional in-home respiratory assessment: No, na - Other: Checked compressor - clean and in good repair. States she washes filters every 1-2 weeks. Describe how the patient manages going out with oxygen: Has portable tanks on wheeled cart for when she has to go out. - Referred to Jewelry Sales Associate for portable oxygen order: No - patient states she looked into portable O2, however insurance will not cover - Coordinated portable oxygen tanks with Durable Medical Equipment supplier: No - The patient uses a nebulizer: Yes Describe how the patient uses their nebulizer: Demonstrated using the nebulizer and appeared to understand. - yes Describe how the patient cleans the nebulizer (including the filter): Patient demonstrated cleaning and appeared to understand. - also states she replaces tubing every other week. Reminded to washwith hot, soapy water, rinse, and let air dry The patient uses an inhaler: Yes Describe how the patient uses the inhaler: Patient demonstrated using the inhaler and appeared to understand. yes - also states she rinses after using Describe how the patient cleans the inhaler: Patient demonstrated cleaning and appeared to understand. - yes Frequency of inhaler use: Multiple times per day. COPD Assessment Test (CAT) completed this visit: Yes Last flowsheet values for COPD Assessment Test (CAT): How often do you cough?: 1 (06/28/2020 2:00 PM) Do you have phlegm (mucus) in your chest at all? : 0 (06/28/2020 2:00 PM) Does your chest feel tight?: 0 (06/28/2020 2:00 PM) How out of breath are you when you walk up a hill or flight of stairs?: 5 (06/28/2020 2:00 PM) How limited are you doing any activities at home?: 0 (06/28/2020 2:00 PM) How confident are you in leaving your home with your lung condition?: 3 (06/28/2020 2:00 PM) How soundly do you sleep?: 3 (06/28/2020 2:00 PM) How much energy do you have?: 3 (06/28/2020 2:00 PM) CAT Total Score: 15 (06/28/2020 2:00 PM) Heart Failure Checklist A "good day" for the patient looks like being able to straighten up around the house and run the sweeper.. Today is different than a "good day": No Patient describes sleep as good Normal The patient has been asked to track the amount of fluid they drink: Yes. Describe how patient tracks fluid volume: 2L fluid restriction. Drinks bottled water to help track. Will have coffee when her family comes over to play cards. There is an [employer] scale in the home: No. - But does weigh herself daily to track weight. Weight maintains around 253# will fluctuate 1-2lbs per day. Typically, the patient's meals look like good amount of starch - limited by diagnosis of diverticulosis Patient's food choices are lower in sodium. Diabetes Survey Community Health Tenderizer Tender (SAJAN) visiting patient for pre-nutrition review and/or telemedicine video visit. Patient's concerns and/or barriers to care they would like to address at today's visit: provided patient with samples of glucerna shakes and coupons Diet Review: Breakfast: glucerna shake Lunch: cereal, sandwich, bagel Supper/Dinner: daughter brings her supper - chicken, potatoes, baked beans. Snacks: granola bars, grahm crackers, ritz crackers Alcohol: none Other beverages: coffee, diet gingerale occasionally, diet cranberry juice Supplements/Protein powder: jaquelineerna nisa Diabetes Survey: Blood glucose testing review: The patient has a glucometer: Yes, - Patient tests their blood sugar 3 times a day Over the past two weeks blood sugar range: Mornin-150 Before lunch: 140s Before dinner: - Bedtime: 130-150 Lowest: 70 - ate two zuchini muffins to bring it up Highest: while taking prednisone bsg was 300-320. Has come back down since finishing prednisone. Home Safety Overall assessment: o The patient has concerns related to housing: No Exterior to the home: o Able to enter and exit the home safely Yes - The steps are even and in good repair: Yes - A wheelchair ramp to access the home is needed: No o Snow/ice removal assistance available: Yes o Sidewalks are in good repair: Yes o Adequate lighting: Yes o Railings are on outdoor stairs: Yes Interior of the home: o If durable medical equipment is used, halls and doorways easy to navigate: Yes o There are trip hazards in the home: Yes - O2 tubing, throw rugs - Transition ramps available: Yes o There are working smoke detectors/carbon monoxide detectors: Yes o There are signs of rodent/insect infestation: No o The house is heated by: oil - The heat system works (adequately heats the entire house): Yes o Able to open doors without difficulty: Yes o The doorways have levered knobs: No o The entry and exit doorways close correctly and lock: Yes o Lighting is adequate: Yes o Air quality concern that affects a health condition - Needs air conditioner or Air purifier: No o Secure railing in stairways in the home: N/A Bathroom: o Grab bars are needed: No o The patient reports needing help getting on and off the toilet: No o Needs help bathing: No - Has a walk in shower: No Bedroom: o There is a medical alert or phone near the bed: Yes o The walkway between the bedroom and bathroom is well lit: Yes Kitchen/Bathroom o Able to turn water on and off: Yes - (Regular knobs or levered knobs) Yes Social Determinants of Health: Safety: o Patient reports feeling unsafe in their home: No. Housing: o Patient reports they are at risk of becoming homeless: No. Home/Living situation: o Patient lives alone: Yes o Bathroom is located 1 o Bedroom is located 1 o Patient has to go up and down steps: - steps to enter/exit. Patient able to navigate steps. Usually doesn't go out unless someone is with her Yes. Patient has concerns related to steps: No. Patient receives help from family/friends/neighbors/community agencies etc.: Yes. Type of help the patient receives: family is very supportive. Goes for groceries, helps with cleaning the house, takes to appointments Patient perceives the help they receive as adequate: o Yes. DME: o DME used: Walker, O2 and Shower chair o Patient has concerns related to DME: No. Financial: o Patient reports experiencing a financial hardship: No. Employment: o Patient is unemployed or without regular income: No. Utilities: o Patient reports difficulty paying heating, water, or electric bill: No. Transportation: o Patient drives: No. o Does anyone drive patient to appointments and shopping? Yes. o Patient receives community or public transportation assistance: No. o Patient reports trouble getting a ride to medical visits or work: Never True. Clothing: o Patient reports being unable to get clothing when it was really needed: No. Food insecurity: o Patient has concerns surrounding meals/food: No. o Within the past 12 months patient worried food would run out before having money to buy more: Never True. o Within the past 12 months the food patient bought did not last and did not have money to get more: Never True o Food is needed for this week: No. Caregiver/Childcare: o Patient feels overwhelmed with taking care of a child, family member or friend: No. o If caregiver is present, patient reports adequate support: Yes. Connections: o How often do you feel lonely or isolated from those around you? Never. Plan: Notified Provider/Jewelry Sales Associate of Other: visit outcome - Follow Up: Patient encouraged to call the intake phone number for all urgent but not emergent issues. Scheduled to follow up with patient in PRN. Leonardo Connolly 06/21/2021 2:51 PM documented in this encounter Plan of Treatment Upcoming Encounters Date Type Specialty Care Team Description 07/10/2021 Office Visit Internal Medicine Marcela Pinto MD [address] [place] [phone] 07/12/2021 Office Visit Cardiology Dulce Merino CRNP [address] [facility] [place] [address] [phone] 08/08/2021 Nurse Only Ancillary Im, Nurse Annual Wellness [facility] [address] [place] [address] [address] [phone] 08/14/2021 Office Visit Internal Medicine Marcela Pinto MD [address] [address] [phone] Health Maintenance Due Date Last Done Comments [...] current use of insulin (HCC)- Primary Chronic hypoxemic respiratory failure (HCC) Chronic respiratory failure Chronic systolic heart failure (HCC) Chronic systolic heart failure COPD, group B, 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 ([facility]) HTN, goal below 140/90 Unspecified essential hypertension Pulmonary HTN (HCC) Other chronic pulmonary heart diseases Morbid obesity with BMI of 40.0-44.9, adult (HCC) Morbid obesity Paroxysmal atrial fibrillation (HCC) Atrial fibrillation Asthma with severity to be determined documented in this encounter Advance Directives Documents on File Type Date Recorded 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
--- OUTSIDE RECORDS SUMMARY | 2023-06-18 03:06 | External Medical Summary | Summary of Care ---
Author Name Unknown Organization [place] [address] Care Team Providers Care Clark Driver Name Role Phone Marcela Pinto MD Primary Care Provider + Reason for Visit * Reason Onset Date Comments Follow Up was in the ER a couple weeks ago for COPD. states she feels okay, breathing is a little better. having pain in left lower abdomen, states she has diverticulosis. Medication Administration 07/10/2021 Flu an d/or Pneumo Inj Encounter Details Date Type Department Care Team Description 07/10/2021 Office Visit General Internal Medicine [facility] [place] [address] [facility] [place] [id number] Marcela Pinto MD [address] [facility] [place] [id number] COPD, group B, 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 (HCC)*; Need for prophylactic vaccination and inoculation against influenza; Chronic systolic heart failure (HCC); Paroxysmal atrial [...] Contrast Metoprolol Tartrate 11/18/2006 Made pulse low [place] Oil-Black Currant-Vit E 07/10/2010 Verapamil 03/21/2004 Bupropion [...] hemoglobin A1c goal of less than 7.0% ([facility]) Use as directed. USE TO [...] WITH BREAKFAST 30 Tab 0 07/10/2021 Active Metoprolol Succinate ER 25 MG Oral Tablet Extended Release 24 Hour (toPROL XL)Indications:Inker akin systolic heart failure (HCC),Paroxysmal atrial fibrillation (HCC),Chronic 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),NICM (nonischemic cardiomyopathy) (HCC),Chronic atrial fibrillation (HCC),Hospital discharge follow-up,Presence of Watchman left atrial appendage closure device,Hyperlipidem ia with target LDL less than 100 Take 0.5mg tablet in the morning and 0.5 tablet in the evening. 135 Tab 3 07/10/2021 Active Ciprofloxacin HCl 500 MG Oral Tablet (Cipro) Take 1 Tab by mouth every 12 hours for 10 days. 20 Tab 0 07/10/2021 1 Active metroNIDAZOLE 500 MG Oral Tablet (Flagyl) Take 1 Tab by mouth 3 times a day for 10 days. 30 Tab 0 07/10/2021 1 Active Metoprolol Succinate ER 25 MG Oral Tablet Extended Release 24 Hour (toPROL XL)Indications:Inker akin systolic heart failure (HCC),Paroxysmal atrial fibrillation (HCC),Chronic 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),NICM (nonischemic cardiomyopathy) (HCC),Chronic atrial fibrillation (HCC),Hospital discharge follow-up,Presence of Watchman left atrial appendage closure device,Hyperlipidem ia with target LDL less than 100 Take 1 tablet in the morning and 0.5 tablet in the evening. 135 Tab 3 06/26/2021 1 Discontinue d(Medicatio n/Dose Changed) documented as of [...] Hypoxemia 10/08/2011 10/30/2015 Genetic Sleep Disorder Research Other*[id number] 07/25/2011 05/15/2016 Diverticulitis of colon 07/25/2011 01/06/20 [...] mRNA, LNP-s, No Pre serve, 2-Dose Series (Solvonics) 12/22/2020,2020 Hepatitis B, 20+ yrs 10/01/2017,04/21/2017,03/20 Pneumococcal [...] Sign Reading Time Taken Comments Blood Pressure 94/60 07/10/2021 2:59 PM EDT Pulse 54 07/10/2021 2:59 PM EDT Temperature 36.7 C (98.1 F) 07/10/2021 2:59 PM ED T Respiratory Rate - - Oxygen Saturation 99% 07/10/2021 2:59 PM EDT Inhaled Oxygen Concentration - - Weight 114.8 kg (253 lb) 07/10/2021 2:59 PM EDT Height - - Body Mass Index 42.1 03/05/2021 8:32 AM EDT documented in this encounter Progress Notes * Marcela Pinto MD - 07/10/2021 3:06 PM EDT HPI: Nina Harrington is a 80 year old female with history of asthma , COPD , nocturnal hypoxemia , on oxygen during day 2 L and nighttime 4 liter/minute, type 2 diabetes mellitus, hypertension, hyperlipidemia, history of osteoarthritis, CKD, obesity, paroxysmal atrial fibrillation, chronic systolic CHF, history of hypoxic respiratory failure, sleep apnea, hypertension, follows with Cardiology and her last visit was few weeks back when her dose of furosemide was increased to 40 mg twice a day and was supposed to get a repeat BMP done in 1 week from that change, she was advised to continue spironolactone and lisinopril current dosage, had a cardiac catheterization done in 11/2020 in [place] which showed mild nonobstructive CAD, patient was also switched from Coreg to metoprolol succinate 12 mg twice a day and was advised not to take digoxin after the cardiology appointment who presents with: Chief Complaint Patient presents with Follow Up was in the ER a couple weeks ago for COPD. states she feels okay, breathing is a little better. having pain in left lower abdomen, states she has diverticulosis. Medication Administration Flu and/or Pneumo Inj Patient is here for the recheck. Chart reviewed with the patient including current meds, last labs and HM. On 06/11/21 patient was seen in emergency room for shortness of breath and had blood work, EKG and chest x-ray. Patient was diagnosed with COPD examination and ongoing atrial fibrillation and she was given Coreg with prednisone taper. As per the review of the chart seems like patient was on Coreg and digoxin off and on and originally her Coreg and digoxin was on hold secondary to bradycardia especially while during the hospital admission. States her bp remains low, not much dizzy. No chestpain, new sob. Uses current inhalers. Pt started seeing Dr. Camargo for underlying hyperthyroidism. Left lower abd discomfort similar to her diverticulitis. No fever, chills. 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 Allergic rhinitis J30.9 Nocturnal hypoxia G47.34 Sleep apnea, obstructive G47.33 HTN, goal below 140/90 I10 Hyperlipidemia with target LDL less than 100 E78.5 Controlled substance agreement signed Z79.899 Type 2 diabetes mellitus with hemoglobin A1c goal of less than 7.5% ([facility]) E11.9 Hypercalcemia E83.52 Elevated plasma metanephrines R79.89 Irritable bowel syndrome with constipation K58.1 Ischemic colitis ([facility]) K55.9 HECTOR (generalized anxiety disorder) F41.1 COPD, group B, 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 ([facility]) J44.9 Morbid obesity with BMI of 40.0-44.9, adult ([facility]) E66.01, Z68.41 Gastro-esophageal reflux disease without esophagitis K21.9 Paroxysmal atrial fibrillation ([facility]) I48.0 Chronic systolic heart failure ([facility]) I50.22 Pulmonary HTN ([facility]) I27.20 Chronic hypoxemic respiratory failure ([facility]) J96.11 Type 2 diabetes mellitus with stage 3a chronic kidney disease (HCC) E11.22, N18.31 Chronic kidney disease, stage 3a (HCC) N18.31 Current Outpatient Medications Medication Sig Dispense Refill Glimepiride 2 MG Oral Tablet (Amaryl) TAKE 1 TABLET BY MOUTH EVERY DAY WITH BREAKFAST 30 Tab 0 Atorvastatin Calcium 80 MG Oral Tablet (Lipitor) Take 1 Tab by mouth daily. 90 Tab 3 Metoprolol Succinate ER 25 MG Oral Tablet Extended Release 24 Hour (toPROL XL) Take 1 tablet inthe morning and 0.5 tablet in the evening. 135 Tab 3 Furosemide 40 MG Oral Tablet [...] MOUTH TWICE A DAY 180 Cap 1 Promethazine HCl 25 MG Oral Tablet (Phenergan) TAKE 1 TABLET BY MOUTH EVERY 6 HOURS NEEDED FOR NAUSEA 60 Tab 0 Spironolactone 25 MG Oral Tablet (Aldactone) Take 0.5 Tabs by mouth daily. 30 Tab 3 Dicyclomine HCl 20 MG Oral Tablet (Bentyl) TAKE 1 TABLET BY MOUTH EVERY DAY 90 Tab 2 Lisinopril 2.5 MG Oral Tablet (Prinivil) Take 2.5 mg by mouth daily. Combivent Respimat 20-100 MCG/ACT Inhalation Aerosol Solution (Ipratropium- Albuterol) TAKE 1 PUFF BY MOUTH 4 TIMES A DAY 12 g 3 doxycycline 100 MG Tablet Take 100 mg by mouth 2 times a day. RESCUE KIT: Take for Colds. Albuterol Sulfate (VENTOLIN HFA) 108 (90 Base) MCG/ACT AERS Inhale 2 Puffs by mouth 2 times a day. albuterol sulfate (PROVENTIL) (2.5 MG/3ML) 0.083% nebulizer solution USE ONE NEBULIZER TREATMENT TWICE A DAY DIRECTED FOR WORSENING ASTHMA. J45.909, J44.9 225 mL 1 ferrous sulfate (FEOSOL) 325 (65 FE) MG Tablet One tablet every day 60 Tab 11 docusate sodium (COLACE) 100 MG Capsule Take 1 Cap by mouth daily. 90 Cap 0 Nebulizers (NEBULIZER COMPRESSOR) MISC Inhale via nebulizer. Use as directed. Please give tubing to use with it. 1 Each 1 Multiple Vitamins-Minerals (ONE DAILY MULTIVITAMIN WOMEN) TABS [...] stool per day. .) 2 Bottle 3 oxygen GAS Use 4 [...] 1000 UNITS PO TABS one tablet daily Fludrocortisone Acetate 0.1 MG Oral Tablet (Florinef) TAKE 1 TABLET BY MOUTH EVERY DAY (Patient nottaking: Reported on 06/25/2021) 30 Tab 1 CareSens N Glucose Test In Vitro Strip [...] FOR DIAGNOSIS CODE OF E11.9 300Each 1 zoster vac recomb adjuvanted (SHINGRIX) 50 MCG/0.5ML injection Inject 0.5 mL into a large muscle now and repeat dose in 60 to 180 days. Please fax date this was given to our office. 1 Each 1 glimepiride (AMARYL) 4 MG Tablet Take 2 mg by mouth daily before breakfast. 90 Tab 3 [facility] SENNA 8.6 MG Tablet TAKE 2 TABLETS BY MOUTH EVERY EVENING FOR 10 DAYS NEEDED FOR CONSTIPATION 0 The patient's medication list was reviewed and updated as needed. 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 Social Needs Financial resource strain: Not on file Food insecurity Worry: Never true Inability: Never true Transportation needs Medical: Not on file Non-medical: Not on file Tobacco Use Smoking status: Never Smoker Smokeless tobacco: Never Used Substance and Sexual Activity Alcohol use: No Drug use: No Sexual activity: Not Currently Lifestyle Physical activity Days per week: Not on file Minutes per session: Not on file Stress: Not on file Relationships Social connections Talks on phone: Not on file Gets together: Not on file Attends shinto service: Not on file Active member of club or organization: Not on file Attends meetings of clubs or organizations: Not on file Relationship status: Not on file Intimate partner violence Fear of current or ex partner: Not on file Emotionally abused: Not on file Physically abused: Not on file Forced sexual activity: Not on file Other Topics Concern Service Not Asked Blood Transfusions No Caffeine Concern Not Asked Occupational Exposure Not Asked Hobby Hazards Not Asked Sleep Concern Not Asked Stress Concern Not Asked Weight Concern Not Asked Special Diet Not Asked Back Care Not Asked Exercise Not Asked Bike Helmet Not Asked Seat Belt Not Asked Self-Exams Not Asked 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 Narrative Not on file Vaping/E-Cigarette Use Vaping/E-Cigarette Use Never User Vaping/E-Cigarette Substances Nicotine No Other No Flavoring No THC No Cannabidiol (CBD) No Vaping/E-Cigarette Devices Disposable No Pre-filled or Refillable Cartridge No Refillable Tank No Pre-filled Pod No Family History Problem Relation Age of Onset Breast Cancer Mother Heart disease Father No Known Problems Sister COPD Brother COPD Brother COPD Brother Diabetes Aunt (Unspecified) Other (JORDAN) Son not diagnosed Lung Disorder Grandfather (Paternal) ?COPD vs asthma Asthma Daughter All system negative except as per hpi. OBJECTIVE: BP 94/60 | Pulse 54 | Temp 36.7 C (98.1 F) (Tympanic) | Wt 114.8 kg (253 lb) | SpO2 99% | BMI 42.10 kg/m | BSA 2.29 m PHYSICAL EXAM: HEENT: PERRLA, EOMI, anicteric sclera, , no lymphadenopathy, neck supple CVS: RRR, no murmurs, rubs or gallops, s1 s 2normal. RESP: clear to auscultation, no wheezing or crackles ABD: soft, left lower abd tenderness, EXT: no edema, cyanosis, peripheral pulses palpable bilaterally No large joint swelling, no redness, range of motion normal. Skin normal. Gait normal. Mood stable No focal weakness ASSESSMENT AND PLAN: COPD, group B, 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 ([facility]) (Primary) Continue current inhalers and f/u with Dr. Bhatti. Encouraged to get covid booster. Need for prophylactic vaccination and inoculation against influenza - INFLUENZA VACC, QUAD, HIGH DOSE (FLUZONE HD) Chronic systolic heart failure (HCC) - Metoprolol Succinate ER 25 MG Oral Tablet Extended Release 24 Hour (toPROL XL); Take 0.5mg tabletin the morning and 0.5 tablet in the evening. Paroxysmal atrial fibrillation (HCC) - Metoprolol Succinate ER 25 MG Oral Tablet Extended Release 24 Hour (toPROL XL); Take 0.5mg tabletin the morning and 0.5 tablet in the evening. Chronic 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) - Metoprolol Succinate ER 25 MG Oral Tablet Extended Release 24 Hour (toPROL XL); Take 0.5mg tabletin the morning and 0.5 tablet in the evening. NICM (nonischemic cardiomyopathy) (HCC) - Metoprolol Succinate ER 25 MG Oral Tablet Extended Release 24 Hour (toPROL XL); Take 0.5mg tabletin the morning and 0.5 tablet in the evening. Chronic atrial fibrillation (HCC) - Metoprolol Succinate ER 25 MG Oral Tablet Extended Release 24 Hour (toPROL XL); Take 0.5mg tabletin the morning and 0.5 tablet in the evening. Hospital discharge follow-up - Metoprolol Succinate ER 25 MG Oral Tablet Extended Release 24 Hour (toPROL XL); Take 0.5mg tabletin the morning and 0.5 tablet in the evening. Presence of Watchman left atrial appendage closure device - Decrease Metoprolol Succinate ER 25 MG Oral Tablet Extended Release 24 Hour (toPROL XL); Take 0.5mg tablet in the morning and 0.5 tablet in the evening. Hyperlipidemia with target LDL less than 100 - Metoprolol Succinate ER 25 MG Oral Tablet Extended Release 24 Hour (toPROL XL); Take 0.5mg tabletin the morning and 0.5 tablet in the evening as she has low BP. Other orders/ diverticultiis: - Ciprofloxacin HCl 500 MG Oral Tablet (Cipro); Take 1 Tab by mouth every 12 hours for 10 days. - metroNIDAZOLE 500 MG Oral Tablet (Flagyl); Take 1 Tab by mouth 3 times a day for 10 days. * Bobbi Fitch LPN - 07/10/2021 2:55 PM EDT PRE - ADMINISTRATION DOCUMENTATION Are you experiencing any cold symptoms or fever? No Have you had Guillain-Edge[place] Syndrome (an illness that causes paralysis) within the last 6 weeks? No Have you had the flu shot in the past? YES Have you ever had a reaction to the flu shot? No Bobbi Fitch LPN, 07/10/2021 2:55 PM Immunization Administration Documentation Time Out Procedure Performed: Yes Patient Identified (Ask Name/Date of ): Yes Does the patient have a fever greater than 101 degrees today? No Patient allergic to latex? No VFC Stock: No Immunization(s) verified: Yes, Immunization Name: Flu, VIS Sheet(s) given: Yes Verified Side and Site: Yes Verified Shot(s) with Parent(s)/Patient: Yes documented in this encounter Nursing Notes * Bobbi Fitch LPN - 07/10/2021 2:59 PM EDT Chief Complaint Patient presents with Follow Up was in the ER a couple weeks ago for COPD. states she feels okay, breathing is a little better. having pain in left lower abdomen, states she has diverticulosis. Medication Administration Flu and/or Pneumo Inj documented in this encounter Plan of Treatment Upcoming Encounters Date Type Specialty Care Team Description 07/12/2021 Office Visit Cardiology Dulce Merino CRNP [address] [facility] [place] [address] [phone] 08/07/2021 Laboratory Laboratory [address] [place] [address] [phone] 08/08/2021 Nurse Only Ancillary Im, Nurse [facility] [place] [address] [place] [address] [phone] 08/14/2021 Office Visit Internal Medicine Marcela Pinto MD [address] [place] [address] [phone] Health Maintenance Due Date Last Done Comments Zoster Vaccines (2 of 3) 08/31/2012 07/06/2012 *DEPRESSION SCREENING,ANNUAL FOR PTS 12 AND OVER 06/24/2021 DIABETES-HGBA1C EVERY 6 MONTHS 09/09/2021 03/09/2021, 12/05/2020, 08/10/2020, Additional history exists CKD GFR USE SMARTSET 90210 12/18/202106/20, 06/12/2021, 05/28/2021, Additional history exists DIABETES-FOOT EXAM 12/21/2021 12/21/2020, 0 10/19/2019, 01/05/2019, Additional history exists CKD PHOS USE SMARTSET [id number] 03/09/2022 03/09/2021, 0 03/22/2019 DIABETES-EYE EXAM 03/26/2022 03/26/2021, , 08/10/2019, Additional history exists CKD HGB USE SMARTSET 66545 05/28/202205/28, 05/21/2021, 05/18/2021, Additional history exists Dexa [...] COPD, group B, 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 (HCC)- Primary Need for prophylactic vaccination and inoculation against influenza Chronic systolic heart failure (HCC) Chronic systolic [...] Documents on File Type Date Recorded Patient [employer] Expl anation Advanced 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
--- OUTSIDE RECORDS SUMMARY | 2023-06-18 03:07 | External Medical Summary | Summary of Care ---
Author Name Unknown Organization [facility] [place] [address] Care Team Providers Care Rn Nursery Name Role Phone Alex Pinto MD Primary Care Provider + Reason for Visit * Reason Comments eRx-Medication Refill Encounter Details Date Type Department Care Team Description 06/11/2021 Refill General Internal Medicine [facility] [address] [facility] [place] [address] Alex Pinto MD [address] [place] [address] [phone] Chronic systolic heart failure (HCC); Hyperthyroidism Allergies Active Allergy Reactions Severity Noted Date Comments Valsartan 07/10/2010 Enalapril 05/21/2006 Escitalopram Oxalate Nausea/vomiting 10/11/2009 Nauseated Iodinated Diagnostic Agents Nausea/vomiting 05/2010 IV Contrast Iodine Hives 12/18/2009 IV Contrast Metoprolol Tartrate 11/18/2006 Made pulse low [place] Oil-Black Currant-Vit E 07/10/2010 Verapamil 03/21/2004 Bupropion Hcl 10/30/2009 Makes pt sick in the stomach documented as of this encounter (statuses as of 06/12/2021) Medications Medication Sig Dispensed Refills Start Date [...] our office. 1 Each 1 10/19/2019 Active guaiFENesin-codeine (ROBITUSSIN AC) 100-10 MG/5ML solution Take 10 mL by mouth every 4 hours as needed. 0 12/18/2019 Active Albuterol Sulfate (VENTOLIN HFA) 108 (90 [...] EVERY DAY 90 Tab 1 04/13/2021 Active HYDROcodone-Acetami nophen 5-325 MG Oral TabletIndications:G eneralized osteoarthritis Take 1 Tab by mouth every 6 hours as needed for Pain, Mild. 120 Tab 0 04/24/2021 Active Aspirin 81 MG Oral Tablet Delayed Release Take 81 mg by mouth daily. 0 02/05/2021 Active Hydrocortisone 20 MG Oral Tablet (Cortef) Take 20 mg by mouth daily in the morning and 10 mg by mouth daily in the evening. 0 04/18/2021 Active Advair HFA 230-21 MCG/ACT Inhalation Aerosol [...] EVERY DAY 90 Tab 3 05/18/2021 Active Digoxin 125 MCG Oral Tablet (Lanoxin)Indication s:Chronic systolic heart failure (HCC),Paroxysmal atrial fibrillation (HCC) Take 1 Tab by mouth daily. 30 Tab 11 06/05/2021 Active Carvedilol 3.125 MG Oral Tablet (Coreg)Indications: Paroxysmal atrial fibrillation (HCC) Take 1 Tab by mouth 2 times a day. With food 60 Tab 5 06/05/2021 Active Fludrocortisone Acetate 0.1 MG Oral Tablet (Florinef) TAKE 1 TABLET BY MOUTH EVERY DAY 30 Tab 1 06/11/2021 Active Glimepiride 2 MG Oral Tablet (Amaryl) TAKE 1 TABLET BY MOUTH EVERY DAY WITH BREAKFAST 30 Tab 0 06/12/2021 Active Furosemide 40 MG Oral Tablet (Lasix)Indications: Chronic systolic heart failure (HCC) 40 mg in AM, 20 mg in PM 270 Tab 1 06/12/2021 Active methIMAzole 10 MG Oral Tablet (Tapazole)Indicatio ns:Hyperthyroidism Take 1 Tab by mouth daily. 30 Tab 3 06/12/2021 Active Furosemide 40 MG Oral Tablet (Lasix)Indications: Chronic systolic heart failure (HCC) 40 mg in AM, 20 mg in PM 270 Tab 1 03/05/2021 Discontinue d(Refill) methIMAzole 10 MG Oral Tablet (Tapazole)Indicatio ns:Hyperthyroidism Take 10 mg by mouth daily. 30 Tab 3 04/03/2021 1 Discontinue d(Refill) documented as of this encounter (statuses as of 06/12/2021) Active Problems Problem Noted Date Type 2 [...] as of this encounter (statuses as of 06/12/2021) Resolved Problems Problem Noted Date Resolved Date [...] Hypoxemia 10/08/2011 10/30/2015 Genetic Sleep Disorder Research Other*[id number] 07/25/2011 05/15/2016 Diverticulitis of colon 07/25/2011 01/06/20 [...] as of this encounter (statuses as of 06/12/2021) Immunizations Name Administration Dates Next Due COVID-19 [...] Telephone Encounter - Alex Pinto MD - 06/12/2021 4:47 PM EDT Signed Prescriptions: Disp Refills Glimepiride 2 MG Oral Tablet (Amaryl) 30 Tab 0 Sig: TAKE 1 TABLET BY MOUTH EVERY DAY WITH BREAKFAST Authorizing Provider: ALEX PINTO Furosemide 40 MG Oral Tablet (Lasix) 270 Tab1 Si mg in AM, 20 mg in PM Authorizing Provider: ALEX PINTO methIMAzole 10 MG Oral Tablet (Tapazole) 30 Tab 3 Sig: Take 1 Tab by mouth daily. Authorizing Provider: ALEX PINTO Refused Prescriptions: Disp Refills Furosemide 40 MG Oral Tablet (Lasix) 60 Tab Sig: TAKE 1 TABLET BY MOUTH TWICE A DAY Refused By: GABE JO Reason for Refusal: Other (comment below) methIMAzole 5 MG Oral Tablet (Tapazole) 60 Tab 0 Sig: TAKE 2 TABLETS BY MOUTH EVERY DAY Refused By: GABE JO Reason for Refusal: Other (comment below) * Telephone Encounter - Gabe Jo RPh - 06/12/2021 3:50 PM EDT Pending Prescriptions: Disp Refills Glimepiride 2 MG Oral Tablet (Amaryl) [Ph*30 Tab 0 Sig: TAKE 1 TABLET BY MOUTH EVERY DAY WITH BREAKFAST Furosemide 40 MG Oral Tablet (Lasix) 270 Tab1 Si mg in AM, 20 mg in PM methIMAzole 10 MG Oral Tablet (Tapazole) 30 Tab 3 Sig: Take 1 Tab by mouth daily. Refused Prescriptions: Disp Ref ills Furosemide 40 MG Oral Tablet (Lasix) 60 Tab Sig: TAKE 1 TABLET BY MOUTH TWICE A DAY Refused By: GABE JO Reason for Refusal: Other (comment below) methIMAzole 5 MG Oral Tablet (Tapazole) 60 Tab 0 Sig: TAKE 2 TABLETS BY MOUTH EVERY DAY Refused By: GABE JO Reason for Refusal: Other (comment below) * Telephone Encounter - Gabe Jo RPh - 06/12/2021 3:49 PM EDT Pharmacists cannot authorize refills for meds listed as "historical" in chart. Please approve if appropriate. Thanks, Gabe Jo PharmD Clinical Pharmacist TelePharmacy 06/12/2021 3:49 PM * Telephone Encounter - Gabe Jo RPh - 06/12/2021 3:46 PM EDT Pending Prescriptions: Disp Refills Furosemide 40 MG Oral Tablet (Lasix) [Pha*60 Tab Sig: TAKE 1 TABLET BY MOUTH TWICE A DAY methIMAzole 5 MG Oral Tablet (Tapazole) [*60 Tab Sig: TAKE 2 TABLETS BY MOUTH EVERY DAY Glimepiride 2 MG Oral Tablet (Amaryl) [Ph*30 Tab Sig: TAKE 1 TABLET BY MOUTH EVERY DAY WITH BREAKFAST Last Office/Telemedicine Visit: 06/05/2021 Next Office Visit: 07/10/2021 Scheduled Provider(s): Alex Pinto MD If no future appointments scheduled, and last appointment is greater than a year ago, please schedule patient for a follow-up appointment Last date the medication was ordered: Pharmacy: [id number] [id number] [facility] Is this request for a [...] Labs: Lab Results Component Value Date/Time CREAT 1.19 (A) 05/28/2021 CREAT 1.0 05/27/2020 04:51 PM POTASSIUM 3.6 05/28/2021 POTASSIUM 4.0 05/27/2020 04:51 PM TSH 0.965 12/05/2020 TSH 0.42 07/27/2018 11:32 AM LDLCALC 75.20 12/05/2020 LDLCALC 95 07/27/2018 11:32 AM LDLDIRECT 85 12/05/2020 LDLDIRECT 97 07/27/2018 11:32 AM ALT 15 05/27/2020 04:51 PM HGBA1C 7.2 (H) 03/09/2021 10:49 AM HGBA1C 6.5 (A) 12/05/2020 HGBA1C 6.6 (H) 08/26/2019 02:55 PM documented in this encounter Plan of Treatment Upcoming Encounters Date Type Specialty Care Team Description 06/13/2021 Office Visit Cardiology Dulce Merino CRNP [address] [facility] [place] [address] [phone] 07/10/2021 Office Visit Internal Medicine Alex Pinto MD [address] [facility] [place] [address] [phone] 08/08/2021 Nurse Only Ancillary Im, Nurse Annual Wellness [facility] [address] [facility] [place] [address] [phone] 08/14/2021 Office Visit Internal Medicine Alex Pinto MD [address] 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
--- OUTSIDE RECORDS SUMMARY | 2023-06-18 03:07 | External Medical Summary ---
Author Name Unknown Address Unknown Organization K01:[facility] [place] - [address] [place] [address] Laboratory Report Ordering Provider Test Date Status BUZZ VO 06/20/2021 13:47:15 Final Observation Date Value Abnormality Reference (Units ) Status Triglyceride 06/20/2021 13:47:15 187 Above high normal <=174 (mg/dL) Final Performing Location LABORATORY [facility] - [address] [place] [address]
--- OUTSIDE RECORDS SUMMARY | 2023-06-18 03:07 | External Medical Summary | Summary of Care ---
Author Name Unknown Organization [place] [address] Care Team Providers Care Bath Mix Operator Name Role Phone Marcela Pinto MD Primary Care Provider + Encounter Details Date Type Department Care Team Description 06/13/2021 Orders Only General Internal Medicine [facility] [place] [address] [facility] [place] [address] Marcela Pinto MD [address] [facility] [place] [address] [phone] Allergies Active Allergy Reactions Severity Noted Date Comments Valsartan 07/10/2010 Enalapril 05/21/2006 Escitalopram Oxalate Nausea/vomiting 10/11/2009 Nauseated Iodinated Diagnostic Agents Nausea/vomiting 05/2010 IV Contrast Iodine Hives 12/18/2009 IV Contrast Metoprolol Tartrate 11/18/2006 Made pulse low [place] Oil-Black Currant-Vit E 07/10/2010 Verapamil 03/21/2004 Bupropion Hcl 10/30/2009 Makes pt sick in the stomach documented as of this encounter (statuses as of 06/13/2021) Medications Medication Sig Dispensed Refills Start Date [...] l)Indications:Asthma with severity to be determined,COPD, moderate ([place] [...] A DAY 180 Cap 1 04/03/2021 Active IntelliworksSens N Voice System Device Use as directed. [...] EVERY DAY 90 Tab 1 04/13/2021 Active HYDROcodone-Acetamino phen 5-325 MG Oral TabletIndications:Gen [...] 05/18/2021 Active Digoxin 125 MCG Oral Tablet (Lanoxin)Indications: Chronic systolic heart failure (HCC),Paroxysmal atrial fibrillation (HCC) Take 1 Tab by mouth daily. 30 Tab 11 06/05/2021 Active Carvedilol 3.125 MG Oral Tablet (Coreg)Indications:Pa roxysmal atrial fibrillation (HCC) Take 1 Tab by [...] Oral Tablet (Lasix)Indications:Ch ronic systolic heart failure (HCC) 40 mg in AM, 20 mg in PM 270 Tab 1 06/12/2021 Active methIMAzole 10 MG Oral Tablet (Tapazole)Indications :Hyperthyroidism Take 1 Tab by mouth daily. 30 Tab 3 06/12/2021 Active documented as of this encounter (statuses as of 06/13/2021) Active Problems Problem Noted Date Type 2 [...] as of this encounter (statuses as of 06/13/2021) Resolved Problems Problem Noted Date Resolved Date [...] Hypoxemia 10/08/2011 10/30/2015 Genetic Sleep Disorder Research Other*[id number] 07/25/2011 05/15/2016 Diverticulitis of colon 07/25/2011 01/06/20 [...] as of this encounter (statuses as of 06/13/2021) Immunizations Name Administration Dates Next Due COVID-19 mRNA, LNP-s, No Pre serve, 2-Dose Series (Ischemia Care) 12/22/2020,2020 Hepatitis B, 20+ yrs 10/01/2017,04/21/2017,03/20 Pneumococcal [...] Office Visit Cardiology Dulce Merino CRNP [address] [facility] [place] [address] [phone] 07/10/2021 Office Visit Internal Medicine Marcela Pinto MD [address] [facility] [place] [address] [phone] 08/08/2021 Nurse Only Ancillary Im, Nurse Annual Wellness [facility] [address] [facility] [place] [address] [phone] 08/14/2021 Office Visit Internal Medicine Marcela Pinto MD [address] [facility] [place] [address] [phone] Health Maintenance Due Date Last Done Comments [...] Priority Date/Time Associated Diagnosis Comments CHEMISTRY-OUTSIDE Routine 06/12/2021 documented in this encounter Results * CHEMISTRY-OUTSIDE (06/12/2021) CREATININE-OUTSIDE LAB 1.08(A) 0.55 - 1.02 MG/DL OUTSIDE LAB (SEE SCANNED REPORT) EGFR-OUTSIDE LAB 52 ML/MIN OUTSIDE LAB (SEE SCANNED REPORT) POTASSIUM-OUTSIDE LAB 4.1 3.5 - 5.1 MMOL/L OUTSIDE LAB (SEE SCANNED REPORT) GLUCOSE-OUTSIDE LAB 150(A) 70 - 110 MG/DL OUTSID E LAB [...] LAB OUTSIDE LAB (SEE SCANNED REPORT) HEMOGLOBIN, [id number] LAB OUTSIDE LAB (SEE SCANNED REPORT) PHOSPHORUS-OUTSIDE LAB OUTSIDE LAB (SEE SCANNED REPORT) PTH-OUTSIDE LAB OUTSIDE LAB (SEE SCANNED REPORT) MICROALBUMIN RATIO-OUTSIDE LAB OUTSIDE LAB (SEE SCANNED REPORT) PROTEIN, UA-OUTSIDE LAB OUTSIDE LAB (SEE SCANNED REPORT) HEMOGLOBIN-OUTSIDE LAB OUTSIDE LAB (SEE SCANNED REPORT) CHEMISTRY COMMENT-OUTSIDE LAB Comment:BMP, - SEE SCAN OUTSIDE LAB (SEE SCANNED REPORT) Specimen Narrative Performed At OUTSIDE LAB (SEE SCANNED REPORT) documented in this encounter Advance Directives Documents on File Type Date Recorded Patient Leader Writer Expl anation Advanced 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
--- OUTSIDE RECORDS SUMMARY | 2023-06-18 03:07 | External Medical Summary ---
Author Name Unknown Address Unknown Organization K0G:[facility] - [address] [place] [id number] Laboratory Report Ordering Provider Test Date Status TAVOBUZZ 06/20/2021 13:47:15 Final Observation Date Value Abnormality Reference (Units ) Status BUN 06/20/2021 13:47:15 20 6-20 (mg/dL) Final Creatinine 06/20/2021 13:47:15 1.0 0.5-1.0 (mg/dL) Final Glomerular filtration rate/1.73 sq M.predicted [Volume Rate/Area] in Serum, Plasma or Blood by Creatinine-based formula (CKD-EPI) 06/20/2021 13:47:15 53.2 Below low normal >=60.0 (mL/min) Final Performing Location [facility]ATORY [facility] [address] - [address] [place] [id number]
--- OUTSIDE RECORDS SUMMARY | 2023-06-18 03:07 | External Medical Summary | Summary of Care ---
Author Name Unknown Organization [place] [address] Care Team Providers Care Import Manager Name Role Phone Marcela Pinto MD Primary Care Provider + Reason for Visit * Reason Comments eRx-Medication Refill Encounter Details Date Type Department Care Team Description 06/14/2021 Refill General Internal Medicine [facility] [address] [place] [address] Marcela Pinto MD [address] [place] [address] [phone] Allergies Active Allergy Reactions Severity Noted Date Comments Valsartan 07/10/2010 Enalapril 05/21/2006 Escitalopram Oxalate Nausea/vomiting 10/11/2009 Nauseated Iodinated Diagnostic Agents Nausea/vomiting 05/2010 IV Contrast Iodine Hives 12/18/2009 IV Contrast Metoprolol Tartrate 11/18/2006 Made pulse low [place] Oil-Black Currant-Vit E 07/10/2010 Verapamil 03/21/2004 Bupropion Hcl 10/30/2009 Makes pt sick in the stomach documented as of this encounter (statuses as of 06/15/2021) Medications Medication Sig Dispensed Refills Start Date [...] l)Indications:Asthma with severity to be determined,COPD, moderate ([place] [...] Oral Capsule Delayed Release (PriLOSEC)Indications :Ischemic colitis ([facility]) TAKE 1 CAPSULE BY MOUTH TWICE [...] WITH BREAKFAST 30 Tab 0 06/12/2021 Active methIMAzole 10 MG Oral Tablet [...] as of this encounter (statuses as of 06/15/2021) Active Problems Problem Noted Date Type 2 [...] as of this encounter (statuses as of 06/15/2021) Resolved Problems Problem Noted Date Resolved Date [...] Hypoxemia 10/08/2011 10/30/2015 Genetic Sleep Disorder Research Other*[id number] 07/25/2011 05/15/2016 Diverticulitis of colon 07/25/2011 01/06/20 [...] as of this encounter (statuses as of 06/15/2021) Immunizations Name Administration Dates Next Due COVID-19 mRNA, LNP-s, No Pre serve, 2-Dose Series ([place]) 12/22/2020,2020 Hepatitis B, 20+ yrs 10/01/2017,04/21/2017,03/20 Pneumococcal [...] encounter Miscellaneous Notes * Telephone Encounter - Jordan Perales RPh - 06/15/2021 1:11 PM EDT Refused Prescriptions: Disp Refills Glimepiride 2 MG Oral Tablet (Amaryl) 30 Tab 0 Sig: TAKE 1 TABLET BY MOUTH EVERY DAY WITH BREAKFASTRefused By: May PERALES for Refusal: Duplicate Request-- documented in this encounter Plan of Treatment Upcoming Encounters Date Type Specialty Care Team Description 06/20/2021 Cardiac Studies Cardiac Studies Nurse Espinoza Cardio Connie [address] [place] [address] [phone] 06/20/2021 Laboratory Laboratory [facility] [address] [place] [address] [phone] 07/10/2021 Office Visit Internal Medicine Marcela Pinto MD [address] [place] [address] [phone] 07/12/2021 Office Visit Cardiology Dulce Merino CRNP [address] [place] [address] [phone] 08/08/2021 Nurse Only Ancillary Im, Nurse Annual Wellness [facility] [address] [facility] [place] [address] [phone] 08/14/2021 Office Visit Internal Medicine Marcela Pinto MD [address] [facility] [place] [address] [phone] Health Maintenance Due Date Last Done Comments [...] Documents on File Type Date Recorded Patient Claim Representative Expl 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
--- OUTSIDE RECORDS SUMMARY | 2023-06-18 03:07 | External Medical Summary | Summary of Care ---
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 [employer]inding [employer] [facility] [address] [facility] [place] [address] Cici Gama RN [address] [place], [place] [id number] Medical home patient encounter*; COPD, group B, 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 ([facility]); Chronic systolic heart failure ([facility]); Asthma with severity to be determined; Type 2 diabetes mellitus with hemoglobin A1c goal of less than 7.5% ([facility]); HTN, goal below 140/90; Hyperlipidemia with target LDL less than 100; Chronic hypoxemic respiratory failure ([facility]) Allergies Active Allergy Reactions Severity Noted Date Comments Valsartan 07/10/2010 Enalapril 05/21/2006 Escitalopram Oxalate Nausea/vomiting 10/11/2009 Nauseated Iodinated Diagnostic Agents Nausea/vomiting 05/2010 IV Contrast Iodine Hives 12/18/2009 IV Contrast Metoprolol Tartrate 11/18/2006 Made pulse low Crane Oil-Black Currant-Vit E 07/10/2010 Verapamil 03/21/2004 Bupropion [...] MEQ Oral Tablet Extended Release (Potassium Chloride Nanalisa ER)Indications:HTN, goal below 140/90 TAKE 1 TABLET [...] Oral Tablet Extended Release 24 Hour (toPROL XL)Indications: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 0 06/12/2021 1 Active guaiFENesin-codeine (ROBITUSSIN AC) 100-10 MG/5ML solution Take 10 mL by mouth every 4 hours as needed. 0 12/18/2019 1 Discontinue d(Patient preference/ discontinua tion) Hydrocortisone 20 MG Oral Tablet (Cortef) Take 20 mg by mouth daily in the morning and 10 mg by mouth daily in the evening. 0 04/18/2021 1 Discontinue d(Medicatio n List Clean Up) [...] Hypoxemia 10/08/2011 10/30/2015 Genetic Sleep Disorder Research Other*[id number] 07/25/2011 05/15/2016 Diverticulitis of colon 07/25/2011 01/06/20 [...] as of this encounter Progress Notes * Cici Gama, RN - 06/15/2021 11:29 AM EDT Case Management Assessment - Follow Up Assessment Risk Adm/ER: 95% High Risk Is this call for a hospital, residential or rehab facility discharge to home? No Although, patient was just in the [facility] ER on 06/11/21 - COPD, controlled AF. S: Reports: Weight gain: Performs daily dry weights, using home scale. -Weight stable at 254 lbs for the past 3 days. Chest pain - reports she currently has on a heart monitor. To be on for 3 days. Will take it off tomorrow, and mail it back to cardiology. Increased shortness of breath: "I am still short of breath, but not as bad as I was. It's starting to work." cough "a little bit" and non-productive dyspnea denies and with daily activities oxygen concentrator, 2L-rest, 2L-activity/exercise and 4L-sleep -checking oxygen with own oximeter: running 96-98% with oxygen on. Reports still short of breath even though the numbers are that high. -able to lie flat and breathe. -never smoked Fall: denies any falls since last Care Management encounter assistive device:none and /but does have a walker if needed. Also has a shower chair. Appetite: denies increased appetite since on the prednisone. Reports appetite has actually decreased since shortness of breath increased. -drinks occasional Glucerna. Drank one this morning since appetite has been decreased. Bowel: moves a small amount daily date of last BM: today, 06/15/21 -wears a pad due to occasional fecal leakage, reports as due to diverticulosis? Bladder: denies problems Medications: takes all medications as prescribed. and denies side effects Chronic Pain: "lower back and occasional sides" -reports as 4 currently, which is as good as it gets. Goes up to 7 or 8 at worst. -managed with hydrocodone/acetaminphen twice daily, AM and PM -pain increases with walking a lot or standing for very long Does Patient have Type 2 DM ? Yes. Does this patient take sulfonylureas and/or basal insulin? Yes. 1. Do you know what the symptoms of hypoglycemia are? yes 2. How often can you tell by your symptoms if your blood sugar is low? Always 3. In a typical week, how many times will your blood sugar go below 70 mg/dL? Never -patient uses [employer] glucometer for monitoring blood sugars at home. Receives supply by mail order. -tests blood sugars 3 x day -FBS this morning was 134 Sleep: usually good, but steroids are causing some mild issues with sleep at this time. Mood: denies anxiety/depression. "I do get disgusted at times." related to inability to do things due to shortness of breath. O: Phone visit for 3 month follow up assessment. Spoke with patient. Alert, oriented, pleasant. Lives alone, in a trailer, with 4 steps to enter. [facility] with [facility] for nursing andphysical therapy. Reports overall condition as "I can get around good, just can't breathe when I doit." Daughter and granddaughter are supportive. Granddaughter comes weekly to clean. Daughter comesdaily - takes care of whatever patient may need. Needs glasses for reading. Medications: takes all medications as prescribed. and denies side effects -manages her own medications -using all inhalers, and her nebulizer as ordered -new prednisone taper added to med list -COPD Rescue Kit in place -on RODRIGO, beta jonathan, and spironolactone - related to heart failure. Does this patient qualify for an annual wellness visit? Yes, Already scheduled for 08/05/21 A: Patient Centered Prioritized Goals: Patient will have a DTP in place. Exacerbations have been prevented, minimized or reduced in severity. Co-morbid conditions identified and managed. Patient will have pain well controlled. Identified Barriers: Older than 70 years FUNCTIONAL STATUS: (Definition - assess ability to patient to manage their own care, includes evaluation of activities of daily living, and instrumental activities of daily living, and cognitive abilities status) ADL'S - Needs Assistance With: N/A as pt is independent IADL'S - Needs Assistance With: N/A as pt is independent Cognitive and Mental Health: denies problems, alert and oriented x 3 and able to communicate, understand instructions, process information. P: [employer] Interventions: Established Self Management Action Plan Reinforced "call back instructions" if symptoms increase: or no improvement with use of prednisone taper, or any other changes in condition. Updated managing provider Reinforced safety education / fall prevention Reinforced medication regimen - timing / dosing / purpose Med rec completed with patient. Med list updated. Confirmed pharmacy of choice as [facility] in [place]. Message sent to cardiology regarding DTP. Discussed Glucerna: Patient has to use food stamps to pay for. often has $3 discount coupons or samples. Told patient to ask for me when comes for next appointment and I will gladly give her coupons or samples, whichever I might have. She is agreeable with plan. Initiated discussion on Advance Directives - none in place, but reports she has all the information/forms there - just hasn't filled them out yet. Confirmed patient has had both doses of her covid vaccine. Confirmed pneumonia and flu vaccines are up to date. Will be due for this years flu vaccine. Instructed she will be asked at next PCP appointment at end of month. Agreeable. Made referral for [facility] due to being very high risk for admissions/ER. Asked to assess for needs, do CAT survey, safety assessment, assess use of inhalers/nebulizer - and cleaning of such. If home visit made prior to next PCP appointment, can deliver Glucerna or coupons to patient - so she doesn't have to carry home, or try to remember to get when here. Confirmed next PCP appointment as 07/10/21, and next cardiology appointment as 07/12/21. 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 Encouraged to call with any issues or concerns. Confirmed patient has direct phone number and contact information. PCP Notified of enrollment in CM/HM program: No SNP Member? No Re-evaluation of plan of care and progress towards goals achievement: A1c at goal of <7.5. BP atgoal of <140/90. Taking medications as ordered. Plans to keep appointments as scheduled. Family supportive. Receptive to continued participation with case management. Plan to call patient next week, in follow up to prednisone taper, to reassess and update plan of care, instructed to call [employer] or Primary Care Provider with change in symptoms or as needed before next follow-up Cici Gama RN Outpatient [employer] documented in this encounter Plan of Treatment Upcoming Encounters Date Type Specialty Care Team Description 06/20/2021 Cardiac Studies Cardiac Studies Nurse Espinoza Cardio Connie [address] [place] [address] [phone] 06/20/2021 Laboratory Laboratory Moon [facility]an [address] [place] [address] [phone] 07/10/2021 Office Visit Internal Medicine Marcela Pinto MD [address] [facility] [place] [address] [phone] 07/12/2021 Office Visit Cardiology Dulce Merino CRNP [address] [place] [address] [phone] 08/08/2021 Nurse Only Ancillary Im, [facility] [address] [facility] [place] [address] [phone] 08/14/2021 Office Visit Internal Medicine Marcela Pinto MD [address] [facility] [place] [address] [phone] Health Maintenance Due Date Last Done Comments [...] home patient encounter- Primary Other specified examination COPD, group B, 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 (HCC) Chronic systolic heart failure (HCC) Chronic systolic heart failure Asthma with severity to be determined Type 2 diabetes mellitus with hemoglobin A1c goal of less than 7.5% (HCC) HTN, goal below 140/90 Unspecified essential hypertension Hyperlipidemia with target LDL less than 100 Other and unspecified hyperlipidemia Chronic hypoxemic respiratory failure (HCC) Chronic respiratory failure documented in this encounter Advance Directives Documents on File Type Date Recorded Patient Scheduling Administrator Expl anation Advanced 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
--- OUTSIDE RECORDS SUMMARY | 2023-06-18 03:07 | External Medical Summary | Summary of Care ---
Author Name Unknown Organization [place] [address] Care Team Providers Care Spring Former Name Role Phone Alex Pinto MD Primary Care Provider + Reason for Visit * Reason Onset Date Comments Medication Refill 06/13/2021 Encounter Details Date Type Department Care Team Description 06/13/2021 Refill General Internal Medicine [facility] [address] [facility] [place] [address] Alex Pinto MD [address] [place] [address] [phone] GENERAL OSTEOARTHROSIS Allergies Active Allergy Reactions Severity Noted Date Comments Valsartan 07/10/2010 Enalapril 05/21/2006 Escitalopram Oxalate Nausea/vomiting 10/11/2009 Nauseated Iodinated Diagnostic Agents Nausea/vomiting 05/2010 IV Contrast Iodine Hives 12/18/2009 IV Contrast Metoprolol Tartrate 11/18/2006 Made pulse low Eckert Oil-Black Currant-Vit E 07/10/2010 Verapamil 03/21/2004 Bupropion [...] Pain, Mild. 120 Tab 0 06/13/2021 Active HYDROcodone-Acetami nophen 5-325 MG Oral TabletIndications:G eneralized osteoarthritis Take 1 Tab by mouth every 6 hours as needed for Pain, Mild. 120 Tab 0 04/24/2021 09/01/202 1 Discontinue d(Refill) documented as of this [...] Hypoxemia 10/08/2011 10/30/2015 Genetic Sleep Disorder Research Other*[id number] 07/25/2011 05/15/2016 Diverticulitis of colon 07/25/2011 01/06/20 [...] mRNA, LNP-s, No Pre serve, 2-Dose Series ([employer]) 12/22/2020,2020 Hepatitis B, 20+ yrs 10/01/2017,04/21/2017,03/20 Pneumococcal [...] encounter Miscellaneous Notes * Telephone Encounter - Aelx Pinto MD - 06/13/2021 11:59 AM EDT Signed Prescriptions: Disp Refills HYDROcodone-Acetaminophen 5-325 MG Oral Ta*120 Tab0 Sig: Take 1 Tab by mouth every 6 hours as needed for Pain, Mild. Authorizing Provider: ALEX PINTO * Telephone Encounter - Angelina Linder LPN - 06/13/2021 11:51 AM EDT Pending Prescriptions: Disp Refills HYDROcodone-Acetaminophen 5-325 MG Oral T*120 Tab0 Sig: Take 1 Tab by mouth every 6 hours as needed for Pain, Mild. Last Office/Telemedicine Visit: 06/05/2021 07/10/2021 Last date the medication was ordered: 04/24/21 Patient Active Problem List Diagnosis Code Asthma [...] 7.5% ([facility]) E11.9 Hypercalcemia E83.52 Elevated plasma metanephrines R79.89 Irritable bowel syndrome with constipation K58.1 Ischemic colitis ([facility]) K55.9 HECTOR (generalized anxiety disorder) F41.1 [...] failure ([facility]) J96.11 Type 2 diabetes mellitus with stage 3a chronic kidney disease ([facility]) E11.22, N18.31 Labs: Lab Results Component Value Date/Time CREATININE - [facility] 1.1 (H) 05/18/2021 05:30 AM CREATININE - [facility] 1.0 05/27/2020 04:51 PM CREATININE TIM 221 08/26/2019 02:57 PM CREATININE TIM - [facility] 75 04/24/2021 01:21 PM CREATININE, 24 HOUR URINE - [facility] 1.106 02/26/2017 09:11 AM CREATININE, RANDOM URINE - [facility] 128 07/09/2019 01:57 PM CREATININE-[facility] 1.08 (A) 06/12/2021 Lab Results Component Value Date/Time POTASSIUM - [facility] 4.3 05/18/2021 05:30 AM POTASSIUM - [facility] 4.0 05/27/2020 04:51 PM POTASSIUM-[facility] 4.1 06/12/2021 Lab Results Component Value Date/Time TSH - [facility] 0.42 07/27/2018 11:32 AM TSH - OUT[facility]IDE LAB 0.965 12/05/2020 Lab Results Component Value Date/Time LDL (CALCULATED)-[facility] 75.20 12/05/2020 LDL (CALCULATED)-[facility] 104.00 06/28/2020 LDL (DIRECT MEASURE)-[facility] 85 12/05/2020 LDL (DIRECT MEASURE)-[facility] 116 (A) 06/28/2020 LDL CHOLESTEROL (CALCULATED) - [facility] 95 07/27/2018 11:32 AM LDL CHOLESTEROL (CALCULATED) - [facility] 118 01/14/2018 12:03 PM LDL CHOLESTEROL (DIRECT MEASURE) - [facility] 97 07/27/2018 11:32 AM LDL CHOLESTEROL (DIRECT MEASURE) - [facility] 114 01/14/2018 12:03 PM Lab Results Component Value Date/Time ALT - [facility] 15 05/27/2020 04:51 PM ALT-[facility] 16 04/16/2017 Hemoglobin AIC Results: Lab Results Component Value [...] Office Visit Cardiology Dulce Merino CRNP [address] [facility] [place] [address] [phone] 07/10/2021 Office Visit Internal Medicine Alex Pinto MD [address] [place] [address] [phone] 08/08/2021 Nurse Only Ancillary Im, Nurse Annual Wellness [facility] [address] [place] [address] [address] [phone] 08/14/2021 Office Visit Internal Medicine Alex Pinto MD [address] [facility] [place] [address] [phone] Health Maintenance Due Date Last Done Comments [...] Documents on File Type Date Recorded Patient 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
--- OUTSIDE RECORDS SUMMARY | 2023-06-18 03:07 | External Medical Summary | Summary of Care ---
Author Name Unknown Organization [place] [address] Care Team Providers Care Numerical Control Nesting Operator Name Role Phone Marcela Pinto MD Primary Care Provider + Reason for Visit * Reason Comments Follow Up Short of Breath Encounter Details Date Type Department Care Team Description 06/13/2021 Office Visit Cardiology, [facility] [address] [place] [address] Dulce Merino CRNP [address] [place] [address] Chronic systolic heart failure (HCC)*; Paroxysmal atrial fibrillation (HCC); Chronic heart failure [...] Contrast Metoprolol Tartrate 11/18/2006 Made pulse low [place] Oil-Black Currant-Vit E 07/10/2010 Verapamil 03/21/2004 Bupropion [...] DAYS NEEDED FOR CONSTIPATION 0 8 Active Nebulizers (NEBULIZER COMPRESSOR) MISC Inhale via nebulizer. Use as directed. Please give tubing to use with it. 1 Each 1 9 Active glimepiride (AMARYL) 4 MG TabletIndications: Type [...] J45.909, J44.9 225 mL 1 9 Active zoster vac recomb adjuvanted (SHINGRIX) 50 MCG/0.5ML injectionIndicatio ns:Need for shingles vaccine Inject 0.5 mL into a large muscle now and repeat dose in 60 to 180 days. Please fax date this was given to our office. 1 Each 1 0 Active guaiFENesin-codein e (ROBITUSSIN AC) 100-10 MG/5ML solution Take 10 mL by mouth every 4 hours as needed. 0 0 Active Albuterol Sulfate (VENTOLIN HFA) 108 (90 [...] EVERY DAY 90 Tab 2 1 Active Spironolactone 25 MG Oral Tablet (Aldactone)Indicat ions:Chronic systolic heart failure (HCC) Take 0.5 Tabs by mouth daily. 30 Tab 3 1 Active Omeprazole 20 MG Oral [...] mg by mouth daily. 0 1 Active Hydrocortisone 20 MG Oral Tablet (Cortef) Take 20 mg by mouth daily in the morning and 10 mg by mouth daily in the evening. 0 1 Active Advair HFA 230-21 MCG/ACT Inhalation Aerosol (fluticasone-Salme terol) Inhale 2 Puffs by mouth 2 times a day. 0 1 Active Atorvastatin Calcium 40 MG Oral Tablet (Lipitor)Indicatio ns:Hyperlipidemia with target LDL less than 100 TAKE 1 TABLET BY MOUTH EVERY DAY 90 Tab 1 1 Active Zafirlukast 20 MG Oral Tablet (Accolate)Indicati ons:Asthma with severity to be determined TAKE 1 TABLET BY MOUTH EVERY DAY 90 Tab 3 1 Active Fludrocortisone Acetate 0.1 MG Oral Tablet (Florinef) TAKE 1 TABLET BY MOUTH EVERY DAY 30 Tab 1 1 Active Glimepiride 2 MG Oral Tablet (Amaryl) TAKE 1 TABLET BY MOUTH EVERY DAY WITH BREAKFAST 30 Tab 0 1 Active methIMAzole 10 MG Oral Tablet (Tapazole)Indicati ons:Hyperthyroidis m Take 1 Tab by mouth daily. 30 Tab 3 1 Active HYDROcodone-Acetam inophen 5-325 MG Oral TabletIndications: Generalized osteoarthritis Take 1 Tab by mouth every 6 hours as needed for Pain, Mild. 120 Tab 0 1 Active Metoprolol Succinate ER 25 MG Oral Tablet Extended Release 24 Hour (toPROL XL)Indications:Chr onic systolic heart failure (HCC),Paroxysmal atrial fibrillation (HCC),Chronic 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),NICM (nonischemic cardiomyopathy) (HCC),Chronic atrial fibrillation (HCC),Hospital discharge follow-up,Presence of Watchman left atrial appendage closure device Take 0.5 Tabs by mouth daily. 30 Tab 5 09/01/202 1 Active Furosemide 40 MG Oral Tablet (Lasix)Indications :Chronic systolic heart failure (HCC),Paroxysmal atrial fibrillation (HCC),Chronic 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),NICM (nonischemic cardiomyopathy) (HCC),Chronic atrial fibrillation (HCC),Hospital discharge follow-up,Presence of Watchman left atrial appendage closure device 40 mg in AM, 40 mg in PM 270 Tab 1 1 Active Digoxin 125 MCG Oral Tablet (Lanoxin)Indicatio ns:Chronic systolic heart failure (HCC),Paroxysmal atrial fibrillation (HCC) Take 1 Tab by mouth daily. 30 Tab 11 1 06/13/20 21 Discontinued(Me dication/Dose Changed) Carvedilol 3.125 MG Oral Tablet (Coreg)Indications :Paroxysmal atrial fibrillation (HCC) Take 1 Tab by mouth 2 times a day. With food 60 Tab 5 1 06/13/20 21 Discontinued(Me dication/Dose Changed) Furosemide 40 MG Oral Tablet (Lasix)Indications :Chronic systolic heart failure (HCC) 40 mg in AM, 20 mg in PM 270 Tab 1 1 06/13/20 21 Discontinued documented as of this encounter [...] Hypoxemia 10/08/2011 10/30/2015 Genetic Sleep Disorder Research Other*[id number] 07/25/2011 05/15/2016 Diverticulitis of colon 07/25/2011 01/06/20 [...] mRNA, LNP-s, No Pre serve, 2-Dose Series ([employer]) 12/22/2020,2020 Hepatitis B, 20+ yrs 10/01/2017,04/21/2017,03/20 [...] Sign Reading Time Taken Comments Blood Pressure 126/84 06/13/2021 2:28 PM EDT Pulse 92 06/13/2021 2:28 PM EDT Temperature 36.6 C (97.9 F) 06/13/2021 2:28 PM ED T Respiratory Rate 22 06/13/2021 2:28 PM EDT Oxygen Saturation 98% 06/13/2021 2:28 PM EDT 3 L/min Inhaled Oxygen Concentration - - Weight 115.7 kg (255 lb) 06/13/2021 2:28 PM EDT Height - - Body Mass Index 42.43 03/05/2021 8:32 AM EDT documented in this encounter Patient Instructions * Patient Instructions* Dulce Merino CRNP - 06/13/2021 2:49 PM EDT 1. STOP carvedilol DO NOT take digoxin 2. Start Metoprolol succinate 12.5 mg (1/2 tab) in the morning and 12.5 mg in the evening 3. Increase lasix to 40 mg in the morning and 40 mg in the afternoon 4. Monitor Pulse and weight at home- record the readings. 5. 1 week nurse VS check with labs same day documented in this encounter Progress Notes * Dulce Merino CRNP - 06/13/2021 2:30 PM EDT Cardiology Outpatient Visit 06/13/[address] Lopez Past medical history: 1. Chronic heart failure with reduced ejection fraction, EF 40-45% 02/2021, NYHA class 3 2. Nonischemic cardiomyopathy, cardiac catheterization performed 11/2020 in [place] demonstrated mild nonobstructive CAD 3. Permanent atrial fibrillation, [id number] score of 5 (age 1, female, CHF, hypertension), no ACs/p watchman implant 11/2019 4. Severe oxygen-dependent COPD with chronic hypercapnia HPI 80-year-old female presenting to the cardiology office today In routine follow- up. Was last seen byDr. Lopez approximately 3 months ago for HFrEF. At her last appointment she was doing well from a cardiac standpoint. Patient was maintained on low-dose Aldactone, carvedilol, and digoxin. Patient was recently admitted to the hospital from 05/05 to 05/11 due to acute diverticulitis and diverticular abscess. ID was consulted and she was started on Zosyn. After discharge she was transferred to [facility] from 05/11 to 05/18, antibiotics were completed on 06/01. During that last admission digoxin and Coreg was held due to bradycardia- recommended restarting these medicines on 06/05 by , PCP. On 06/11 patient presented to the [facility] Emergency Department due to complaints of ongoing shortness of breath. Chest x-ray revealed no significant pulmonary edema or consolidation. Lab work was unremarkable, troponin was negative. Symptoms improved after a DuoNeb treatment. Patient was found to be in atrial fibrillation which is a known diagnosis for her, heart rates were averaging in the 90s. At that time patient has not restarted her carvedilol or digoxin. Today the patient presents feeling "not so hot". States that she continues to have dyspnea on exertion worse when she is walking. Patient arrived in a wheelchair today. Uses 2 L of oxygen during the day and about 4 L at night. Denying orthopnea. Does complain of some ankle edema. Denies abdominal bloating. Notes that she is up about 4-5 lb on her home scale. Stated that she thinks she is holding on to fluid. No exertional chest pain. No dizziness or syncope. No fever, chills, cough, hematochezia, melena, or hemoptysis. She states she is compliant with all medications, and offers no side effects. Has not restarted digoxin yet was awaiting Cardiology recommendation. Current Outpatient Medications Medication Sig Dispense Refill Furosemide 40 MG Oral Tablet (Lasix) 40 mg in AM, 40 mg in PM 270 Tab 1 Metoprolol Succinate ER 25 MG Oral Tablet Extended Release 24 Hour (toPROL XL) Take 0.5 Tabs bymouth daily. 30 Tab 5 Glimepiride 2 MG Oral Tablet (Amaryl) TAKE 1 TABLET BY MOUTH EVERY DAY WITH BREAKFAST 30 Tab 0 methIMAzole 10 MG Oral Tablet (Tapazole) Take 1 Tab by mouth daily. 30 Tab 3 Fludrocortisone Acetate 0.1 MG Oral Tablet (Florinef) TAKE 1 TABLET BY MOUTH EVERY DAY 30 Tab 1 Atorvastatin Calcium 40 MG Oral Tablet (Lipitor) TAKE 1 TABLET BY MOUTH EVERY DAY 90 Tab 1 Zafirlukast 20 MG Oral Tablet (Accolate) TAKE [...] MOUTH TWICE A DAY 180 Cap 1 Spironolactone 25 MG Oral Tablet (Aldactone) [...] daily HYDROcodone-Acetaminophen 5-325 MG Oral Tablet Take 1 Tab by mouth every 6 hours as needed for Pain, Mild. 120 Tab 0 Advair HFA 230-21 MCG/ACT Inhalation Aerosol (fluticasone-Salmeterol) Inhale 2 Puffs by mouth 2 times a day. Hydrocortisone 20 MG Oral Tablet (Cortef) Take 20 mg by mouth daily in the morning and 10 mg by mouth daily in the evening. CareSens N Glucose Test In Vitro Strip [...] FOR DIAGNOSIS CODE OF E11.9 300Each 1 guaiFENesin-codeine (ROBITUSSIN AC) 100-10 MG/5ML solution Take 10 mL by mouth every 4 hours as needed. zoster vac recomb adjuvanted (SHINGRIX) 50 MCG/0.5ML injection Inject 0.5 mL into a large muscle now and repeat dose in 60 to 180 days. Please fax date this was given to our office. 1 Each 1 Nebulizers (NEBULIZER COMPRESSOR) MISC Inhale via nebulizer. Use as directed. Please give tubing to use with it. 1 Each 1 polyethylene glycol 3350 (MIRALAX) 255 gram powder [...] COLONOSCOPY, DIAGNOSTIC (RECTUM) 05/29/2016 poor prep, diverticulosis/inpt [facility] COLONOSCOPY, DIAGNOSTIC (RECTUM) 06/05/2017 diverticulosis, repeat 3 yrs/[facility] COLONOSCOPY, DIAGNOSTIC (RECTUM) 02/28/2018 adenomatous polyps, diverticulosis, repeat 3 yrs / [facility] COLONOSCOPY, DIAGNOSTIC (RECTUM) 05/08/2020 inflammatory tissue on bx, diverticulosis / [facility] COLONOSCOPY, W/BIOPSY 03/20/2012 hyperplastic polyps rpt 3 years. EGD, FLEXIBLE, DIAGNOSTIC 04/29/2014 normal/inpt [facility] EGD, FLEXIBLE, DIAGNOSTIC 05/29/2016 fundic submucosal mass/inpt [facility] EGD, FLEXIBLE, DIAGNOSTIC 05/08/2020 normal / [facility] EGD, FLEXIBLE,W/ENDOSCOPIC US 11/08/2016 inflammatory changes, stomach lesion, repeat EUS 1.5 yrs/[facility] EGD, FLEXIBLE,W/ENDOSCOPIC US 05/01/2018 stromal cell (smooth muscle) neoplasm, CBD dilation, repeat 2 yrs (needs OV prior)/[facility] EGD, FLEXIBLE,W/ENDOSCOPIC US 09/01/2020 leiomyoma / [facility] INCISIONAL HERNIA REPAIR, LAP, REDUCIBLE 09/29/2012 Repair of incarcerated supraumbilical (incisional) hernia with [facility] mesh 09/29/12 LIGATE/CUT OVIDUCT(S) REMOVAL OF TONSILS, AGE 12+ age 11 REMOVE GALLBLADDER 1960 SIGMOIDOSCOPY, DIAGNOSTIC 04/29/2014 stool in rectum/inpt [facility] SMALL BOWEL ENDOSCOPY, REMOVE FOREIGN [...] IV Contrast Metoprolol Tartrate Made pulse low [place] Oil-Black Currant-Vit E Verapamil Wellbutrin [Bupropion Hcl] Makes pt sick in the stomach Review of Systems: See HPI for pertinent positives. All others negative, other than those noted in HPI. Physical Exam BP 126/84 (BP Site: Left Arm, BP Position: Sitting, BP Cuff Size: Large) | Pulse 92 | Temp 36.6 C(97.9 F) | Resp 22 | Wt 115.7 kg (255 lb) | SpO2 98% Comment: 3 L/min | BMI 42.43 kg/m | BSA 2.3 m VISIT WEIGHT TREND 04/03/2021 04/24/2021 06/05/2021 06/13/2021 WEIGHT 247 lb 9.6 oz 250 lb 12.8 oz 255 lb General: No acute distress. A+Ox3. HEENT: Normocephalic. Atraumatic. Conjunctiva and sclera clear. NECK: No carotid bruits. No JVD. Carotid upstrokes are brisk. Heart: Irreg. Rhythm. Tachy rate. S1 and S2 noted without murmur, rubs, gallops. Lungs: Diminished lung sounds bilaterally, fine crackles in bilateral bases Abdomen: Normal bowel sounds. Soft. Obese. Extremities: +1 bilateral lower extremity edema. No clubbing or cyanosis. Pulses: radial=2/4, posterior tibial=2/4, dorsalis pedis = 2/4. NEURO: No focal deficits. PSYCH: Normal. Lab data/imaging study review: Lab work reviewed [employer] summary 06/11 Hemoglobin 10.5 Platelet 414 Sodium 138 Potassium 4.0 BUN 17 Creatinine 1.02 Troponin negative 2D echo report summary [facility] 02/26/21: LV systolic function is mildly reduced. Ejection fraction 40-45% Mild concentric left ventricular hypertrophy. Mild global hypokinesis. Moderate aortic valve sclerosis without stenosis. Mild mitral regurgitation. Impression/Plan: 1. Heart failure with reduced EF, NYHA class 3 EF 40-45% 02/2021. Mildly hypervolemic on exam. Weight is up about 4-5 lb on her home scale. Lower extremity edema. 1. Increase furosemide to 40 mg twice daily- BMP in 1 week instructed to monitor weights at home. 2. Continue spironolactone 12.5 mg daily 3. Continue lisinopril 2.5 mg daily 4. Once patient is optimized on goal-directed medical therapy can consider repeating echocardiogramat that time. 2. Nonischemic cardiomyopathy Cardiac catheterization performed 11/2020 in [place] demonstrated mild nonobstructive CAD 3. Permanent Atrial Fibrillation [id number] score of 5 (age 1, female, CHF, hypertension), no AC s/p watchman implant 11/2019. Ventricular rates ranging between 90s and 120s at home. 1. Three day Zio to assess average heart rates 2. Discontinue carvedilol and start metoprolol succinate 12 twice daily 3. Patient was instructed not to start digoxin 4. Patient is to monitor blood pressure and heart rate at home along with daily weights 5. One week nurse vital sign check with labs prior 4. Dyslipidemia, LDL goal below 70 1. Continue Lipitor 40 mg daily 2. Repeat lipid panel Patient Instructions 1. STOP carvedilol DO NOT take digoxin 2. Start Metoprolol succinate 12.5 mg (1/2 tab) in the morning and 12.5 mg in the evening 3. Increase lasix to 40 mg in the morning and 40 mg in the afternoon 4. Monitor Pulse and weight at home- record the readings. 5. 1 week nurse VS check with labs same day The patient agrees to the above plan and will call with additional questions or concerns. ER with all emergencies advised. Follow-up: Return in about 4 weeks (around 07/11/2021). | Check-out note: 1 week nurse VS check withlabs same day I spent a total of 45 minutes on the date of service in preparation, delivery, and documentation ofthe care provided to Nina Harrington excluding any time spent in the performance of separately billedservices. NIECY Shepard, Department of Cardiology This chart was completed in part utilizing [employer] Speech Voice Recognition Software. Grammatical errors, random [...] Nursing Notes * Darren Mejia RN - 06/13/2021 2:26 PM EDT Examination Room: room 4 Name: Nina Harrington Date of : (1940). Reason for Visit: 3 month return and ER follow up from yesterday 06/11/2021. Interim Hospitalization(s): admitted to [facility] on 02/24/2021 for acute on chronic heart failure Problems/Concerns: states she cant breath she is on 02 at 3 L/min Chest Pain/SOB: states very short of breath My [facility] is a way you can [...] Cardiac Studies Nurse Espinoza Cardio Connie [address] [facility] [place] [address] [phone] 06/20/2021 Laboratory Laboratory Moon Doran [address] [facility] [place] [address] [phone] 07/10/2021 Office Visit Internal Medicine Marcela Pinto MD [address] [facility] [place] [address] [phone] 07/12/2021 Office Visit Cardiology Dulce Merino CRNP [address] [facility] [place] [address] [phone] 08/08/2021 Nurse Only Ancillary Im, Nurse Annual Wellness [facility] [address] [facility] [place] [address] [phone] 08/14/2021 Office Visit Internal Medicine Marcela Pinto MD [address] [facility] [place] [address] [phone] Scheduled Orders Name Type Priority Associated Diagnoses Orde r Schedule EKG EKG Routine Chronic systolic heart failure (HCC) Paroxysmal atrial fibrillation (HCC) Chronic 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) NICM (nonischemic cardiomyopathy) (HCC) Chronic atrial fibrillation (HCC) Presence of Watchman left atrial appendage closure device Ordered: 06/13/2021 EXTERNAL EKG 2 TO 7 DAYS Holter Routine Chronic systolic heart failure (HCC) Paroxysmal atrial fibrillation (HCC) Chronic 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) NICM (nonischemic cardiomyopathy) (HCC) Chronic atrial fibrillation (HCC) Hospital discharge follow-up Presence of Watchman left atrial appendage closure device Expected: 06/14/2021 (Approximate), Expires: 07/13/2022 BASIC METABOLIC PANEL Lab STAT Chronic systolic heart failure (HCC) Paroxysmal atrial fibrillation (HCC) Chronic 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) NICM (nonischemic cardiomyopathy) (HCC) Chronic atrial fibrillation (HCC) Hospital discharge follow-up Presence of Watchman left atrial appendage closure device Expected: 06/20/2021, Expires: 06/13/2022 LIPID PANEL WITH DIRECT LDL IF TG IS HIGH Lab Routine Chronic systolic heart failure (HCC) Paroxysmal atrial fibrillation (HCC) Chronic 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) NICM (nonischemic cardiomyopathy) (HCC) Chronic atrial fibrillation (HCC) Hospital discharge follow-up Presence of Watchman left atrial appendage closure device Expected: 06/20/2021, Expires: 06/13/2022 Health Maintenance Due Date Last Done Comments [...] failure (HCC)- Primary Chronic systolic heart failure Paroxysmal atrial fibrillation (HCC) Atrial fibrillation Chronic 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) NICM (nonischemic cardiomyopathy) (HCC) Other primary cardiomyopathies Chronic atrial fibrillation (HCC) Atrial fibrillation Hospital discharge follow-up Other follow-up examination Presence of Watchman left atrial appendage closure device documented in this encounter Advance Directives Documents on File Type Date Recorded 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
--- OUTSIDE RECORDS SUMMARY | 2023-06-18 03:07 | External Medical Summary | Summary of Care ---
Author Name Unknown Organization [place] [address] Care Team Providers Care Server Software Engineer Name Role Phone Marcela Pinto MD Primary Care Provider + Reason for Visit * Reason Comments Outpatient Testing Encounter Details Date Type Department Care Team Description 06/20/2021 Laboratory Laboratory, [facility] [address] [place] [address] [facility] [address] [place] [address] Diverticulitis of colon; Chronic systolic heart failure (HCC); Paroxysmal atrial [...] Contrast Metoprolol Tartrate 11/18/2006 Made pulse low [place] Oil-Black Currant-Vit E 07/10/2010 Verapamil 03/21/2004 Bupropion [...] Hypoxemia 10/08/2011 10/30/2015 Genetic Sleep Disorder Research Other*[id number] 07/25/2011 05/15/2016 Diverticulitis of colon 07/25/2011 01/06/20 [...] Visit Family Medicine Lacy Grant, Community Health Clinical Technician [address] [place] [address] [place] [address] [phone] 07/10/2021 Office Visit Internal Medicine Marcela Pinto MD [address] [place] [address] [address] [phone] 07/12/2021 Office Visit Cardiology [facility] [address] [facility] [address] [phone] 08/08/2021 Nurse Only Ancillary Im, Nurse Annual Wellness [facility] [address] [place] [address] [address] [phone] 08/14/2021 Office Visit Internal Medicine Marcela Pinto MD [address] [place] [address] [address] [phone] Pending Results Name Type Priority Associated Diagnoses Date /Time BASIC METABOLIC PANEL Lab STAT Chronic systolic heart failure (HCC) Paroxysmal atrial fibrillation (HCC) Chronic 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) NICM (nonischemic cardiomyopathy) (HCC) Chronic atrial fibrillation (HCC) Hospital discharge follow-up Presence of Watchman left atrial appendage closure device 06/20/2021 1:47 PM EDT LIPID PANEL WITH DIRECT LDL IF TG IS HIGH Lab Routine Chronic systolic heart failure (HCC) Paroxysmal atrial fibrillation (HCC) Chronic 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) NICM (nonischemic cardiomyopathy) (HCC) Chronic atrial fibrillation (HCC) Hospital discharge follow-up Presence of Watchman left atrial appendage closure device 06/20/2021 1:47 PM EDT Health Maintenance Due Date Last [...] of colon (without mention of hemorrhage) Chronic systolic heart failure (HCC) Chronic systolic [...] Documents on File Type Date Recorded Patient Power Regulator Expl anation Advanced 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
--- OUTSIDE RECORDS SUMMARY | 2023-06-18 03:07 | External Medical Summary | Summary of Care ---
Author Name Unknown Organization [place] [address] Care Team Providers Care Cooker Pie Filling Name Role Phone Marcela Pinto MD Primary Care Provider + Reason for Visit * Reason Onset Date Comments Advice 06/01/2021 Encounter Details Date Type Department Care Team Description 06/01/2021 Telephone General Internal Medicine [facility] [address] [place] [address] Marcela Pinto MD [address] [place] [address] [phone] Advice Allergies Active Allergy Reactions Severity Noted Date Comments Valsartan 07/10/2010 Enalapril 05/21/2006 Escitalopram Oxalate Nausea/vomiting 10/11/2009 Nauseated Iodinated Diagnostic Agents Nausea/vomiting 05/2010 IV Contrast Iodine Hives 12/18/2009 IV Contrast Metoprolol Tartrate 11/18/2006 Made pulse low [place] Oil-Black Currant-Vit E 07/10/2010 Verapamil 03/21/2004 Bupropion Hcl 10/30/2009 Makes pt sick in the stomach documented as of this encounter (statuses as of 06/14/2021) Medications Medication Sig Dispensed Refills Start Date [...] l)Indications:Asthma with severity to be determined,COPD, moderate (FORMERLY [...] EVERY DAY 90 Tab 3 05/18/2021 Active documented as of this encounter (statuses as of 06/14/2021) Active Problems Problem Noted Date Type 2 [...] as of this encounter (statuses as of 06/14/2021) Resolved Problems Problem Noted Date Resolved Date [...] Hypoxemia 10/08/2011 10/30/2015 Genetic Sleep Disorder Research Other*[id number] 07/25/2011 05/15/2016 Diverticulitis of colon 07/25/2011 01/06/20 [...] as of this encounter (statuses as of 06/14/2021) Immunizations Name Administration Dates Next Due COVID-19 mRNA, LNP-s, No Pre serve, 2-Dose Series ([employer]) 12/22/2020,2020 Hepatitis B, 20+ yrs 10/01/2017,04/21/2017,03/20 Pneumococcal [...] Telephone Encounter - Marcela Pinto MD - 06/14/2021 2:38 PM EDT Pt seen and taken care of. * Telephone Encounter - Renetta Gu LPN - 06/01/2021 2:[address] Blair Wood is scheduled to see you on 06/05. Patient is being treated for diverticulitis with iv atb via picc line If you allow patient to have picc removed on Friday Last ATB will be tonight at 10 PM Please see home health under scans. Thank you * Telephone Encounter - Trinidad Dempsey LPN - 06/01/2021 2:29 PM EDT Pt calling and states that her PICC line site is good until Friday06.06.21. Sees PCP on 06.05.21. HH will be in to see pt on 06.04.21. Would like to know if HH would be able to removed the PICC line on Friday? Please advise. * Telephone Encounter - Ayana Chaidez OSA - 06/01/2021 2:26 PM EDT Reason for patient's call: Patient asking to speak to a nurse regarding her IV site. Caller was transferred to Trinidad at the nurse line. documented in this encounter Plan of Treatment Upcoming Encounters Date Type Specialty Care Team Description 06/20/2021 Cardiac Studies Cardiac Studies Nurse Esp[facility] [address] [address] [phone] 06/20/2021 Laboratory Laboratory Moon Doran [address] [address] [phone] 07/10/2021 Office Visit Internal Medicine Marcela Pinto MD 200 [facility] [place] [address] [phone] 07/12/2021 Office Visit Cardiology Dulce Merino CRNP [address] [address] [phone] 08/08/2021 Nurse Only Ancillary Im, Nurse [facility] 200 [facility] [place], [place] [address] [phone] 08/14/2021 Office Visit Internal Medicine Marcela Pinto MD [address] [facility] [place] [address] [phone] Health Maintenance Due Date Last Done Comments [...] Documents on File Type Date Recorded 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
--- OUTSIDE RECORDS SUMMARY | 2023-06-18 03:07 | External Medical Summary | Summary of Care ---
Author Name Unknown Organization [place] [address] Care Team Providers Care Casing Cooker Name Role Phone Marcela Pinto MD Primary Care Provider + Reason for Visit * Reason Onset Date Comments Medication Question 06/14/2021 Encounter Details Date Type Department Care Team Description 06/14/2021 Telephone Cardiology, [facility] [address] [place] [address] Dulce Merino CRNP [address] [place] [address] Medication Question Allergies Active Allergy Reactions Severity Noted Date Comments Valsartan 07/10/2010 Enalapril 05/21/2006 Escitalopram Oxalate Nausea/vomiting 10/11/2009 Nauseated Iodinated Diagnostic Agents Nausea/vomiting 05/2010 IV Contrast Iodine Hives 12/18/2009 IV Contrast Metoprolol Tartrate 11/18/2006 Made pulse low [place] Oil-Black Currant-Vit E 07/10/2010 Verapamil 03/21/2004 Bupropion [...] 1 9 Active glimepiride (AMARYL) 4 MG TabletIndications:T ype [...] our office. 1 Each 1 0 Active guaiFENesin-codeine (ROBITUSSIN AC) 100-10 MG/5ML solution [...] 1 Active Spironolactone 25 MG Oral Tablet (Aldactone)Indicati [...] mouth daily. 30 Tab 3 1 Active HYDROcodone-Acetami nophen 5-325 MG [...] in PM 270 Tab 1 1 Active Metoprolol Succinate ER 25 MG Oral Tablet Extended Release 24 Hour (toPROL XL)Indications:Enrollment Consultant akin systolic heart failure (HCC),Paroxysmal atrial fibrillation (HCC),Chronic 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),NICM (nonischemic cardiomyopathy) (HCC),Chronic atrial fibrillation (HCC),Hospital discharge follow-up,Presence of Watchman left atrial appendage closure device Take 0.5 Tabs by mouth 2 times a day. 30 Tab 5 1 Active Metoprolol Succinate ER 25 MG Oral Tablet Extended Release 24 Hour (toPROL XL)Indications:Enrollment Consultant aikn systolic heart failure (HCC),Paroxysmal atrial fibrillation (HCC),Chronic 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),NICM (nonischemic cardiomyopathy) (HCC),Chronic atrial fibrillation (HCC),Hospital discharge follow-up,Presence of Watchman left atrial appendage closure device Take 0.5 Tabs by mouth daily. 30 Tab 5 1 06/14/20 21 Discontinued documented as of this encounter [...] Hypoxemia 10/08/2011 10/30/2015 Genetic Sleep Disorder Research Other*[id number] 07/25/2011 05/15/2016 Diverticulitis of colon 07/25/2011 01/06/20 [...] mRNA, LNP-s, No Pre serve, 2-Dose Series ([employer]) 12/22/2020,2020 Hepatitis B, 20+ yrs 10/01/2017,04/21/2017,03/20 Pneumococcal [...] encounter Miscellaneous Notes * Telephone Encounter - Darren Mejia RN - 06/14/2021 11:59 AM EDT Called and spoke to the patient and informed her of the correct dosage and times on her metoprolol.She stated she understands . See message from [facility] [place]. * Telephone Encounter - Dulce Merino CRNP - 06/14/2021 10:57 AM EDT That was a typo on my end. The correct order is metoprolol succinate 12.5 mg twice daily. Thanks, NIECY Gonzalez * Telephone Encounter - Vani Pelletier LPN - 06/14/2021 9:58 AM EDT Hilaryn calling inquiring about pt Metoprolol. Visit notes from yesterdays appt say Metoprolol 25 mg 1/2 tab AM and PM. New bottle states 1/2 tab QD. Please advise documented in this encounter Plan of Treatment Upcoming Encounters Date Type Specialty Care Team Description 06/20/2021 Cardiac Studies Cardiac Studies Nurse Espinoza Cardio Connie [address] [place] [address] [phone] 06/20/2021 Laboratory Laboratory Moon Doran [address] [place] [address] [phone] 07/10/2021 Office Visit Internal Medicine Marcela Pinto MD 200 [facility] [place] [address] [phone] 07/12/2021 Office Visit Cardiology Dulce Merino CRNP 132 [facility] [place] [address] [phone] 08/08/2021 Nurse Only Ancillary Im, Nurse Annual Wellness [facility] 200 [facility] [place] [address] [phone] 08/14/2021 Office Visit Internal Medicine Marcela Pinto MD 200 [facility] [place] [address] [phone] Health Maintenance Due Date Last Done Comments [...] Documents on File Type Date Recorded Patient Shampoo Person Expl anation Advanced 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
--- OUTSIDE RECORDS SUMMARY | 2023-06-18 03:08 | External Medical Summary | Summary of Care ---
Author Name Unknown Organization [place] [address] Care Team Providers Care Steam Fitter Name Role Phone Marcela Pinto MD Primary Care Provider + Reason for Visit * Reason Onset Date Comments Residential Follow Up 06/05/2021 d/c picc line Encounter Details Date Type Department Care Team Description 06/05/2021 Telephone General Internal Medicine [facility] 200 [facility] [place] [id number] Marcela Pinto MD [address] [place] [address] [phone] Residential Follow Up (d/c picc line ) Allergies Active Allergy Reactions Severity Noted Date Comments Valsartan 07/10/2010 Enalapril 05/21/2006 Escitalopram Oxalate Nausea/vomiting 10/11/2009 Nauseated Iodinated Diagnostic Agents Nausea/vomiting 05/2010 IV Contrast Iodine Hives 12/18/2009 IV Contrast Metoprolol Tartrate 11/18/2006 Made pulse low [place] Oil-Black Currant-Vit E 07/10/2010 Verapamil 03/21/2004 Bupropion Hcl 10/30/2009 Makes pt sick in the stomach documented as of this encounter (statuses as of 06/06/2021) Medications Medication Sig Dispensed Refills Start Date [...] was given to our office. 1 Each 10/19/2019 Active guaiFENesin-codeine (ROBITUSSIN AC) 100-10 MG/5ML [...] EVERY DAY 90 Tab 2 01/25/2021 Active Furosemide 40 MG Oral Tablet (Lasix)Indications:Ch ronic systolic heart failure (HCC) 40 mg in AM, 20 mg in PM 270 Tab 1 03/05/2021 Active Spironolactone 25 MG Oral Tablet (Aldactone)Indication [...] FOR NAUSEA 60 Tab 0 04/03/2021 Active methIMAzole 10 MG Oral Tablet (Tapazole)Indications :Hyperthyroidism Take 10 mg by mouth daily. 30 Tab 3 04/03/2021 Active Klor-Con M20 20 MEQ Oral [...] mg by mouth daily. 0 02/05/2021 Active Fludrocortisone Acetate 0.1 MG Oral Tablet (Florinef) Take 0.1 mg by mouth daily. 0 04/18/2021 Active Hydrocortisone 20 MG Oral Tablet (Cortef) [...] With food 60 Tab 5 06/05/2021 Active documented as of this encounter (statuses as of 06/06/2021) Active Problems Problem Noted Date Type 2 [...] as of this encounter (statuses as of 06/06/2021) Resolved Problems Problem Noted Date Resolved Date [...] Hypoxemia 10/08/2011 10/30/2015 Genetic Sleep Disorder Research Other*[id number] 07/25/2011 05/15/2016 Diverticulitis of colon 07/25/2011 01/06/20 [...] as of this encounter (statuses as of 06/06/2021) Immunizations Name Administration Dates Next Due COVID-19 mRNA, LNP-s, No Pre serve, 2-Dose Series ([employer]) 12/22/2020,2020 Hepatitis B, 20+ yrs 10/01/2017,04/21/2017,03/20 Pneumococcal [...] encounter Miscellaneous Notes * Telephone Encounter - Hiwot Valladares LPN - 06/06/2021 4:32 PM EDT Office note with PICC removal statement faxed to Hira at [phone]. Confirmation received. * Telephone Encounter - Chantel Miranda LPN - 06/06/2021 4:11 PM EDT Hira from [facility] calling back. She is would like to pull picc today. She is inquiring if one of the covering provider could give verbal to pull. Called office spoke to Concepcion. She was able to find in OV note that it may be pulled. Informed hira, she verbalized understanding. Fax ov noted to [phone] * Telephone Encounter - Chantel Miranda LPN - 06/06/2021 10:02 AM EDT [facility] calling back about order. Please advise. Fax is [phone]. * Telephone Encounter - Hiwot Valladares LPN - 06/05/2021 4:29 PM EDT Please see request below, order pended for approval. * Telephone Encounter - Nicole Saeed LPN - 06/05/2021 4:17 PM EDT Chanda returned call. They have her on tomorrow to pull the picc line. Fax is [phone]. Will need the order faxed. * Telephone Encounter - Chelsea Jaffe LPN - 06/05/2021 11:54 AM EDT Called [facility] to see if nursing can go in this week to d/c picc line. And needed to know if she needed an order faxed. Left message for Chanda to return call to let us know if they can and if they need an appointment. Also asked that they call patient and let her know as well to set up date and time. documented in this encounter Plan of Treatment Upcoming Encounters Date Type Specialty Care Team Description 06/13/2021 Office Visit Cardiology [facility]ino CRNP [address] [facility] [address] [phone] 07/10/2021 Office Visit Internal Medicine Marcela Pinto MD 200 [facility] [place] [address] [phone] 08/08/2021 Nurse Only Ancillary Im, Nurse Annual Wellness [facility] [address] [place] [address] [phone] 08/14/2021 Office Visit Internal Medicine Marcela Pinto MD [address] [place] [address] [address] [phone] Health Maintenance Due Date Last Done Comments [...] Documents on File Type Date Recorded Patient Billet Header Expl anation Advanced 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
--- OUTSIDE RECORDS SUMMARY | 2023-06-18 03:08 | External Medical Summary | Summary of Care ---
Author Name Unknown Organization [place] [address] Care Team Providers Care Back End Developer Name Role Phone Marcela Pinto MD Primary Care Provider + Encounter Details Date Type Department Care Team Description 06/06/2021 Scan Encounter Unspecified Department <No scans attached> Allergies Active Allergy Reactions Severity Noted Date Comments Valsartan 07/10/2010 Enalapril 05/21/2006 Escitalopram Oxalate Nausea/vomiting 10/11/2009 Nauseated Iodinated Diagnostic Agents Nausea/vomiting 05/2010 IV Contrast Iodine Hives 12/18/2009 IV Contrast Metoprolol Tartrate 11/18/2006 Made pulse low [place] Oil-Black Currant-Vit E 07/10/2010 Verapamil 03/21/2004 Bupropion Hcl 10/30/2009 Makes pt sick in the stomach documented as of this encounter (statuses as of 06/07/2021) Medications Medication Sig Dispensed Refills Start Date [...] less than 7.5% ([facility]) Take 2 mg by mouth daily [...] as of this encounter (statuses as of 06/07/2021) Active Problems Problem Noted Date Type 2 [...] as of this encounter (statuses as of 06/07/2021) Resolved Problems Problem Noted Date Resolved Date [...] Hypoxemia 10/08/2011 10/30/2015 Genetic Sleep Disorder Research Other*[id number] 07/25/2011 05/15/2016 Diverticulitis of colon 07/25/2011 01/06/20 [...] as of this encounter (statuses as of 06/07/2021) Immunizations Name Administration Dates Next Due COVID-19 mRNA, LNP-s, No Pre serve, 2-Dose Series ([employer]) 12/22/2020,2020 Hepatitis B, 20+ yrs 10/01/2017,04/21/2017,03/20 [...] Office Visit Cardiology Dulce Merino CRNP 132 [facility] [place] [address] [phone] 07/10/2021 Office Visit Internal Medicine Marcela Pinto MD 200 [facility] [place] [address] [phone] 08/08/2021 Nurse Only Ancillary Im, Nurse Annual Wellness [facility] 200 [facility] [place] [address] [phone] 08/14/2021 Office Visit Internal Medicine Marcela Pinto MD 200 [facility] [place] [address] [phone] Health Maintenance Due Date Last Done Comments [...] on File Type Date Recorded Patient Media Planner Expl 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
--- OUTSIDE RECORDS SUMMARY | 2023-06-18 03:08 | External Medical Summary | Summary of Care ---
Author Name Unknown Organization [place] [address] Care Team Providers Care Tobacco Cutter Name Role Phone Marcela Pinto MD Primary Care Provider + Encounter Details Date Type Department Care Team Description 06/11/2021 Scan Encounter Unspecified Department <No scans attached> Allergies Active Allergy Reactions Severity Noted Date Comments Valsartan 07/10/2010 Enalapril 05/21/2006 Escitalopram Oxalate Nausea/vomiting 10/11/2009 Nauseated Iodinated Diagnostic Agents Nausea/vomiting 05/2010 IV Contrast Iodine Hives 12/18/2009 IV Contrast Metoprolol Tartrate 11/18/2006 Made pulse low [place] Oil-Black Currant-Vit E 07/10/2010 Verapamil 03/21/2004 Bupropion [...] 7.5% ([facility]) Take 2 mg by mouth daily before [...] EVERY DAY 30 Tab 1 06/11/2021 Active documented as of this encounter (statuses [...] Hypoxemia 10/08/2011 10/30/2015 Genetic Sleep Disorder Research Other*[id number] 07/25/2011 05/15/2016 Diverticulitis of colon 07/25/2011 01/06/20 [...] mRNA, LNP-s, No Pre serve, 2-Dose Series ([employer]) 12/22/2020,2020 Hepatitis B, 20+ yrs 10/01/2017,04/21/2017,03/20 Pneumococcal [...] Office Visit Cardiology Dulce Merino CRNP [address] [facility] [place] [address] [phone] 07/10/2021 Office Visit Internal Medicine Marcela Pinto MD 200 [facility] [place] [address] [phone] 08/08/2021 Nurse Only Ancillary Im, Nurse Annual Wellness [facility] 200 [facility] [place] [address] [phone] 08/14/2021 Office Visit Internal Medicine Marcela Pinto MD 200 [place] [address] [phone] Health Maintenance Due Date Last Done Comments [...] Documents on File Type Date Recorded Patient Contact Center Specialist Expl 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
--- OUTSIDE RECORDS SUMMARY | 2023-06-18 03:08 | External Medical Summary | Summary of Care ---
Author Name Unknown Organization [place] [address] Care Team Providers Care Journal Box Inspector Name Role Phone Alex Pinto MD Primary Care Provider + Reason for Visit * Reason Comments eRx-Medication Refill Encounter Details Date Type Department Care Team Description 06/08/2021 Refill General Internal Medicine [facility] [address] [place] [address] Alex Pinto MD [address] [place] [address] [phone] Allergies Active Allergy Reactions Severity Noted Date Comments Valsartan 07/10/2010 Enalapril 05/21/2006 Escitalopram Oxalate Nausea/vomiting 10/11/2009 Nauseated Iodinated Diagnostic Agents Nausea/vomiting 05/2010 IV Contrast Iodine Hives 12/18/2009 IV Contrast Metoprolol Tartrate 11/18/2006 Made pulse low [place] Oil-Black Currant-Vit E 07/10/2010 Verapamil 03/21/2004 Bupropion Hcl 10/30/2009 Makes pt sick in the stomach documented as of this encounter (statuses as of 06/11/2021) Medications Medication Sig Dispensed Refills Start Date [...] EVERY DAY 90 Tab 2 1 Active Furosemide 40 MG Oral Tablet (Lasix)Indications: Chronic systolic heart failure (HCC) 40 mg in AM, 20 mg in PM 270 Tab 1 1 Active Spironolactone 25 MG Oral Tablet [...] FOR NAUSEA 60 Tab 0 1 Active methIMAzole 10 MG Oral Tablet (Tapazole)Indicatio ns:Hyperthyroidism Take 10 mg by mouth daily. 30 Tab 3 1 Active Klor-Con M20 20 MEQ Oral Tablet Extended Release (Potassium Chloride Annalisa ER)Indications:HTN, goal below 140/90 TAKE 1 TABLET BY MOUTH EVERY DAY 90 Tab 1 1 Active HYDROcodone-Acetami nophen 5-325 MG Oral TabletIndications:G eneralized osteoarthritis Take 1 Tab by mouth every 6 hours as needed for Pain, Mild. 120 Tab 0 1 Active Aspirin 81 MG Oral Tablet [...] EVERY DAY 90 Tab 3 1 Active Digoxin 125 MCG Oral Tablet (Lanoxin)Indication s:Chronic systolic heart failure (HCC),Paroxysmal atrial fibrillation (HCC) Take 1 Tab by mouth daily. 30 Tab 11 1 Active Carvedilol 3.125 MG Oral Tablet (Coreg)Indications: Paroxysmal atrial fibrillation (HCC) Take 1 Tab by mouth 2 times a day. With food 60 Tab 5 1 Active Fludrocortisone Acetate 0.1 MG Oral Tablet (Florinef) TAKE 1 TABLET BY MOUTH EVERY DAY 30 Tab 1 1 Active Fludrocortisone Acetate 0.1 MG Oral Tablet (Florinef) Take 0.1 mg by mouth daily. 0 1 06/10/20 21 Discontinued documented as of this encounter (statuses as of 06/11/2021) Active Problems Problem Noted Date Type 2 [...] as of this encounter (statuses as of 06/11/2021) Resolved Problems Problem Noted Date Resolved Date [...] Hypoxemia 10/08/2011 10/30/2015 Genetic Sleep Disorder Research Other*[id number] 07/25/2011 05/15/2016 Diverticulitis of colon 07/25/2011 01/06/20 [...] as of this encounter (statuses as of 06/11/2021) Immunizations Name Administration Dates Next Due COVID-19 mRNA, LNP-s, No Pre serve, 2-Dose Series ([employer]) 12/22/2020,2020 Hepatitis B, 20+ yrs 10/01/2017,04/21/2017,03/20 Pneumococcal [...] Telephone Encounter - Alex Pinto MD - 06/11/2021 11:31 AM EDT Signed Prescriptions: Disp Refills Fludrocortisone Acetate 0.1 MG Oral Tablet*30 Tab 1 Sig: TAKE 1 TABLET BY MOUTH EVERY DAY Authorizing Provider: ALEX PINTO * Telephone Encounter - Butch Duval RPh - 06/10/2021 4:19 PM EDT Pending Prescriptions: Disp Refills Fludrocortisone Acetate 0.1 MG Oral Table*30 Tab 1 Sig: TAKE 1 TABLET BY MOUTH EVERY DAY * Telephone Encounter - Butch Duval RPh - 06/10/2021 4:15 PM EDT Pharmacists cannot authorize refills for meds listed as "historical" in chart. Last prescribed by Dr. Chuck Sullivan Please approve if appropriate. Pending Prescriptions: Disp Refills Fludrocortisone Acetate 0.1 MG Oral Table*30 Tab Sig: TAKE 1 TABLET BY MOUTH EVERY DAY Last Office/Telemedicine Visit: 06/05/2021 Next Office Visit: 07/10/2021 Scheduled Provider(s): Alex Pinto MD If no future appointments scheduled, and last appointment is greater than a year ago, please schedule patient for a follow-up appointment Last date the medication was ordered: 04/18/21 Pharmacy: [id number] [id number] [facility] Is this [...] Office Visit Cardiology Dulce Merino CRNP [address] [facility] [place] [address] [phone] 07/10/2021 Office Visit Internal Medicine Alex Pinto MD 200 [facility] [place] [address] [phone] 08/08/2021 Nurse Only Ancillary Im, Nurse Annual Wellness [facility] [address] [place] [address] [address] [phone] 08/14/2021 Office Visit Internal Medicine Alex Pinto MD 200 [facility] [place] [address] [phone] Health Maintenance Due Date Last Done Comments [...] Documents on File Type Date Recorded 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
--- OUTSIDE RECORDS SUMMARY | 2023-06-18 03:08 | External Medical Summary | Summary of Care ---
Author Name Unknown Organization [place] [address] Care Team Providers Care Therapeutic Specialist Name Role Phone Marcela Pinto MD Primary Care Provider + Reason for Visit * Reason Onset Date Comments Order Request 05/30/2021 Encounter Details Date Type Department Care Team Description 05/30/2021 Telephone General Internal Medicine [facility] [address] [facility] [place] [id number] Marcela Pinto MD [address] [place] [address] [phone] Order Request Allergies Active Allergy Reactions Severity Noted Date Comments Valsartan 07/10/2010 Enalapril 05/21/2006 Escitalopram Oxalate Nausea/vomiting 10/11/2009 Nauseated Iodinated Diagnostic Agents Nausea/vomiting 05/2010 IV Contrast Iodine Hives 12/18/2009 IV Contrast Metoprolol Tartrate 11/18/2006 Made pulse low [place] Oil-Black Currant-Vit E 07/10/2010 Verapamil 03/21/2004 Bupropion Hcl 10/30/2009 Makes pt sick in the stomach documented as of this encounter (statuses as of 06/01/2021) Medications Medication Sig Dispensed Refills Start Date [...] goal of less than 7.0% ([facility]) Use as directed. USE TO [...] as of this encounter (statuses as of 06/01/2021) Active Problems Problem Noted Date Type 2 [...] as of this encounter (statuses as of 06/01/2021) Resolved Problems Problem Noted Date Resolved Date [...] Hypoxemia 10/08/2011 10/30/2015 Genetic Sleep Disorder Research Other*[id number] 07/25/2011 05/15/2016 Diverticulitis of colon 07/25/2011 01/06/20 [...] as of this encounter (statuses as of 06/01/2021) Immunizations Name Administration Dates Next Due COVID-19 mRNA, LNP-s, No Pre serve, 2-Dose Series ([employer]) 12/22/2020,2020 Hepatitis B, 20+ yrs 10/01/2017,04/21/2017,03/20 Pneumococcal [...] Telephone Encounter - Marcela Pinto MD - 06/01/2021 1:57 PM EDT I signed everything from orange folder and gave back yesterday. Do I have to sign something in Epic?? * Telephone Encounter - Renetta Call OSA - 05/30/2021 1:34 PM EDT María calling from [facility] Needs orders signed from 04/30/21 And 2 plan of cares from 05/19/21 and 06/03/21 María ph [phone] documented in this encounter Plan of Treatment Upcoming Encounters Date Type Specialty Care Team Description 06/05/2021 Office Visit Internal Medicine Marcela Pinto MD [address] [place] [address] [phone] 06/13/2021 Office Visit Cardiology Dulce Merino CRNP [address] [facility] [place] [address] [phone] 07/10/2021 Office Visit Internal Medicine Marcela Pinto MD [address] [place] [address] [address] [phone] 08/08/2021 Nurse Only Ancillary Im, Nurse Annual Wellness Ashok Romero [address] [address] [phone] 08/14/2021 Office Visit Internal Medicine Marcela Pinto MD [address] [place] [address] [phone] Health Maintenance Due Date Last Done Comments Zoster Vaccines (2 of 3) 08/31/2012 07/06/2012 Influenza Vaccine (FLU shot) (#1) 2021 06/22/2020, 06/22/2020, 07/09/2019, Additional history exists DIABETES-HGBA1C EVERY 6 MONTHS [...] on File Type Date Recorded 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
--- OUTSIDE RECORDS SUMMARY | 2023-06-18 03:08 | External Medical Summary | Summary of Care ---
Author Name Unknown Organization [place] [address] Care Team Providers Care Motorcycle Mechanic Apprentice Name Role Phone Marcela Pinto MD Primary Care Provider + Reason for Visit * Reason Onset Date Comments Encounter Created in Error 05/31/2021 Encounter Details Date Type Department Care Team Description 05/31/2021 Telephone General Internal Medicine [facility] [address] [facility] [place] [address] Marcela Pinto MD [address] [place] [address] [phone] Encounter Created in Error Allergies Active Allergy Reactions Severity Noted Date Comments Valsartan 07/10/2010 Enalapril 05/21/2006 Escitalopram Oxalate Nausea/vomiting 10/11/2009 Nauseated Iodinated Diagnostic Agents Nausea/vomiting 05/2010 IV Contrast Iodine Hives 12/18/2009 IV Contrast Metoprolol Tartrate 11/18/2006 Made pulse low [place] Oil-Black Currant-Vit E 07/10/2010 Verapamil 03/21/2004 Bupropion Hcl 10/30/2009 Makes pt sick in the stomach documented as of this encounter (statuses as of 05/31/2021) Medications Medication Sig Dispensed Refills Start Date [...] determined,COPD, moderate ([facility]) TAKE 1 PUFF BY MOUTH 4 TIMES [...] as of this encounter (statuses as of 05/31/2021) Active Problems Problem Noted Date Type 2 [...] as of this encounter (statuses as of 05/31/2021) Resolved Problems Problem Noted Date Resolved Date [...] Hypoxemia 10/08/2011 10/30/2015 Genetic Sleep Disorder Research Other*[id number] 07/25/2011 05/15/2016 Diverticulitis of colon 07/25/2011 01/06/20 [...] as of this encounter (statuses as of 05/31/2021) Immunizations Name Administration Dates Next Due COVID-19 mRNA, LNP-s, No Pre serve, 2-Dose Series ([employer]) 12/22/2020,2020 Hepatitis B, 20+ yrs 10/01/2017,04/21/2017,03/20 Pneumococcal [...] Medicine Marcela Pinto MD [address] [facility] [place] [address] [phone] 06/13/2021 Office Visit Cardiology Dulce Merino CRNP [address] [facility] [place] [address] [phone] 07/10/2021 Office Visit Internal Medicine Marcela Pinto MD [address] [facility] [place] [address] [phone] 08/08/2021 Nurse Only Ancillary Im, Nurse [facility] [address] [facility] [place] [address] [phone] 08/14/2021 Office Visit Internal Medicine Marcela Pinto MD [address] [facility] [place] [address] [phone] Health Maintenance Due Date Last Done Comments [...] Documents on File Type Date Recorded 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
--- OUTSIDE RECORDS SUMMARY | 2023-06-18 03:08 | External Medical Summary | Summary of Care ---
Author Name Unknown Organization [place] [address] Care Team Providers Care American Sign Language Teacher Name Role Phone Marcela Pinto MD Primary Care Provider + Reason for Visit * Reason Onset Date Comments Advice 05/28/202105/28 Encounter Details Date Type Department Care Team Description 05/28/2021 Telephone General Internal Medicine [facility] [address] [facility] [place] [address] Marcela Pinto MD [address] [place] [address] [phone] Advice (05/28) Allergies Active Allergy Reactions Severity Noted Date Comments Valsartan 07/10/2010 Enalapril 05/21/2006 Escitalopram Oxalate Nausea/vomiting 10/11/2009 Nauseated Iodinated Diagnostic Agents Nausea/vomiting 05/2010 IV Contrast Iodine Hives 12/18/2009 IV Contrast Metoprolol Tartrate 11/18/2006 Made pulse low [place] Oil-Black Currant-Vit E 07/10/2010 Verapamil 03/21/2004 Bupropion [...] l)Indications:Asthma with severity to be determined,COPD, moderate ([facility] [...] Hypoxemia 10/08/2011 10/30/2015 Genetic Sleep Disorder Research Other*[id number] 07/25/2011 05/15/2016 Diverticulitis of colon 07/25/2011 01/06/20 [...] mRNA, LNP-s, No Pre serve, 2-Dose Series ([employer]) 12/22/2020,2020 Hepatitis B, 20+ yrs 10/01/2017,04/21/2017,03/20 [...] Telephone Encounter - Hiwot Valladares LPN - 05/31/2021 11:39 AM EDT Called and spoke with Steph at [facility], informed her of the detailed message below from provider, she voiced understanding and read back. She denies any further requests at this time. * Telephone Encounter - Marcela Pinto MD - 05/31/2021 10:52 AM EDT If pt is feeling much better, no fever, can stop an antibiotic as far as have completed the course recommended from hospital. If any doubts or any s/s- continue antibiotic until we see her next week. Thanks. * Telephone Encounter - Marcela Pinto MD - 05/31/2021 10:51 AM EDT If pt is feeling much better clinically, no fever, * Telephone Encounter - Dodie Carson LPN - 05/31/2021 10:20 AM EDT Steph wants to know if it is ok to discontinue pts ABT and PICC line Advised of PCP message from 05/28/21 She would like to know if pt should continue to receive ABT until that appt Last dose is to be given tomorrow 06/01/21 Please advise * Telephone Encounter - Cecilia Yeung, JORDAN - 05/31/2021 10:19 AM EDT Reason for patient's call: Steph calling in from [facility] pharmacy regarding PICC Line. Questioning discontinuing after last dose of antibiotics on 06.01.21 Caller was transferred to [facility] at the nurse line. * Telephone Encounter - Hiwot Valladares LPN - 05/29/2021 9:50 AM EDT FYI Called and spoke with patient, informed her of message from provider below. She voiced understanding, denies any needs at this time. She states her last day of antibiotics is scheduled to be 06/01/2021. * Telephone Encounter - Marcela Pinto MD - 05/28/2021 5:34 PM EDT Removal of the PICC line depends on for how long she is supposed to take an antibiotic and when it ends. We can decide it at her visit with us on 06/05/2021. No need to make any change at this time. Also find out when she is finishing her antibiotic. * Telephone Encounter - Hiwot Valladares LPN - 05/28/2021 4:18 PM EDT Called and spoke with patient, informed her of detailed message from the provider below: she voicesunderstanding to all. She states she still has intermittent left "side pain", c/o nausea and stomach is upset. She statesthe home nurse told her the nausea and stomach upset is possibly from the antibiotic. She denies any fevers, chills, vomiting, or any other symptoms at this time. Reports that she was told she "not survive surgery and is not approved"; reports her PICC line expires on 06/10/2021, questions if she should have it left in until she sees you on 06/05/21? * Telephone Encounter - Marcela Pinto MD - 05/28/2021 3:58 PM EDT Usually we do not need to repeat the scan unless patient has ongoing symptoms including but not limited to high fever, blood in the stool, abdominal or flank pain, nausea, vomiting. Also check whether she was advised by any surgeon to get follow-up CT scan? We can also discuss further at her next office visit with us on 06/05/21. * Telephone Encounter - Hiwot Valladares LPN - 05/28/2021 12:44 PM EDT Please see message below * Telephone Encounter - Jerry Wynne OSA - 05/28/2021 12:19 PM EDT Patient calling to verify if a report CT scan will be ordered following the completion of the IV antibiotics to check the Diverticulitis and abscess. documented in this encounter Plan of Treatment Upcoming Encounters Date Type Specialty Care Team Description 06/05/2021 Office Visit Internal Medicine Marcela Pinto MD [address] [facility] [place] [address] [phone] 06/13/2021 [facility] Visit [facility] [address] [facility] [address] [phone] 07/10/2021 Office Visit Internal Medicine Marcela Pinto MD [address] [address] [phone] 08/08/2021 Nurse Only Ancillary Im, Nurse Annual Wellness [facility] [address] [address] [phone] 08/14/2021 Office Visit Internal Medicine Marcela Pinto MD [address] [facility] [place] [place] [address] [phone] Health Maintenance Due Date Last Done Comments [...] Documents on File Type Date Recorded Patient 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
--- OUTSIDE RECORDS SUMMARY | 2023-06-18 03:08 | External Medical Summary | Summary of Care ---
Author Name Unknown Organization [place] [address] Care Team Providers Care Cutting Table Operator Name Role Phone Marcela Pinto MD Primary Care Provider + Reason for Visit * Reason Comments Hospital Follow-Up was in [facility] for absc ess on colon. Patient had 20 days of IV abx. still has some side pain. Encounter Details Date Type Department Care Team Description 06/05/2021 Office Visit General Internal Medicine [facility] 200 [facility] [place] [address] Marcela Pinto MD 200 [place] [address] [phone] Diverticulitis of colon*; Hospital discharge follow-up; Type 2 diabetes mellitus with hemoglobin A1c goal of less than 7.5% ([facility]); Type 2 diabetes mellitus with stage 3a chronic kidney disease, without long-term current use of insulin ([facility]); Hyperlipidemia with target LDL less than 100; Nocturnal hypoxia; Sleep apnea, obstructive; Chronic systolic heart failure ([facility]); Paroxysmal atrial fibrillation ([facility]) Allergies Active Allergy Reactions Severity Noted Date Comments Valsartan 07/10/2010 Enalapril 05/21/2006 Escitalopram Oxalate Nausea/vomiting 10/11/2009 Nauseated Iodinated Diagnostic Agents Nausea/vomiting 05/2010 IV Contrast Iodine Hives 12/18/2009 IV Contrast Metoprolol Tartrate 11/18/2006 Made pulse low [place] Oil-Black Currant-Vit E 07/10/2010 Verapamil 03/21/2004 Bupropion Hcl 10/30/2009 Makes pt sick in the stomach documented as of this encounter (statuses as of 06/05/2021) Medications Medication Sig Dispensed Refills Start Date [...] hemoglobin A1c goal of less than 7.0% ([facility]) Use as directed. USE TO [...] as of this encounter (statuses as of 06/05/2021) Active Problems Problem Noted Date Type 2 [...] as of this encounter (statuses as of 06/05/2021) Resolved Problems Problem Noted Date Resolved Date [...] Hypoxemia 10/08/2011 10/30/2015 Genetic Sleep Disorder Research Other*[id number] 07/25/2011 05/15/2016 Diverticulitis of colon 07/25/2011 01/06/20 [...] as of this encounter (statuses as of 06/05/2021) Immunizations Name Administration Dates Next Due COVID-19 mRNA, LNP-s, No Pre serve, 2-Dose Series (ZeaChem) 12/22/2020,2020 Hepatitis B, 20+ yrs 10/01/2017,04/21/2017,03/20 Pneumococcal [...] Sign Reading Time Taken Comments Blood Pressure 120/82 06/05/2021 11:06 AM EDT Pulse 72 06/05/2021 11:06 AM EDT Temperature 36.6 C (97.8 F) 06/05/2021 11:06 AM E DT Respiratory Rate 18 06/05/2021 11:06 AM EDT Oxygen Saturation 97% 06/05/2021 11:06 AM EDT Inhaled Oxygen Concentration - - Weight - - Height - - Body Mass Index - - documented in this encounter Progress Notes * Marcela Pinto MD - 06/05/2021 10:55 AM EDT HPI: Nina Harrington is a 80 year old female who presents with: No chief complaint on file. Pt is here for the hospital follow up. Chart reviewed from the hospital including admission note, Hand P, consult notes, labs, EKG, imaging and discharge note including discharge meds. Patient states she is feeling better since went back home. Pt was admitted to the hospital on 05/05/21and was discharged on 05/11/21 . Admission Diagnosis : Acute diverticulitis,chronic diverticular abcess, Adrenal adenoma left side, insufficiency. Pt had labs, EKG, CT abd pelvis which showed acute sigmoid diverticulitis, ID was consulted, started zosyn and was transferred to [facility] from 05/11/21 till 05/18/21. Pt finished an antibiotic on 06/01/21. Has no fever, vomitting, diarrhoea, blood in stool.some nausea+ Needs removal of PICC line through [employer]NAGER [employer]. Pt does do exercises at home she learned from PT. For Adrenal insufficiency, she is on Fludrocortisone. Pt was also seen by Surgeon, and they got second opinion from surgeon from [place] who recommendedagainst the surgery looking at high risk fo rthe patient. Patient was later transferred to [facility] for inpatient rehab on May 11 and she was discharged home on May 18 with all the regular medications including IV antibiotics oa seen through the PICC line. Patient states she still feels left low or abdominal pain but no fever nausea vomiting or diarrhea.No blood in the stool. We discussed the need for seeing general surgeon as an outpatient. Pt has been followed up by casework supervisor and specialists. Last admission her digoxin and coreg was helpd as she had alexa cardia but we discussed she can restart Digoxin and low dose of Coreg. Recent labs shows little further drop in kidney functions and she has not drank enough water today so will come back or will get labs at home through [employer]GER [employer] in next few days. Patient Active Problem List Diagnosis Code Asthma [...] than 7.5% ([facility]) E11.9 Hypercalcemia E83.52 Elevated plasma metanephrines R79.89 Irritable bowel syndrome with constipation K58.1 Ischemic colitis ([facility]) K55.9 HECTOR (generalized anxiety disorder) F41.1 [...] respiratory failure ([facility]) J96.11 Type 2 diabetes mellitus with stage 3a chronic kidney disease ([facility]) E11.22, N18.31 Current Outpatient Medications Medication Sig Dispense Refill Atorvastatin Calcium 40 MG Oral Tablet (Lipitor) TAKE 1 TABLET BY MOUTH EVERY DAY 90 Tab 1 Zafirlukast 20 MG Oral Tablet (Accolate) TAKE 1 TABLET BY MOUTH EVERY DAY 90 Tab 3 Advair HFA 230-21 MCG/ACT Inhalation Aerosol (fluticasone-Salmeterol) Inhale 2 Puffs by mouth 2 times a day. Aspirin 81 MG Oral Tablet Delayed Release Take 81 mg by mouth daily. Fludrocortisone Acetate 0.1 MG Oral Tablet (Florinef) Take 0.1 mg by mouth daily. HYDROcodone-Acetaminophen 5-325 MG Oral Tablet Take 1 Tab by mouth every 6 hours as needed for Pain, Mild. 120 Tab 0 Hydrocortisone 20 MG Oral Tablet (Cortef) Take 20 mg by mouth daily in the morning and 10 mg by mouth daily in the evening. Klor-Con M20 20 MEQ Oral Tablet Extended Release (Potassium Chloride Annalisa ER) TAKE 1 TABLET BY MOUTH EVERY DAY 90 Tab 1 CareSens N Glucose Test In Vitro Strip (Glucose Blood) Test as directed. Tests three times daily CareSens N Voice System Device Use as directed. Tests three times daily/E11.9 methIMAzole 10 MG Oral Tablet (Tapazole) Take 10 mg by mouth daily. 30 Tab 3 Omeprazole 20 MG Oral Capsule Delayed Release (PriLOSEC) TAKE 1 CAPSULE BY MOUTH TWICE A DAY 180 Cap 1 Promethazine HCl 25 MG Oral Tablet (Phenergan) TAKE 1 TABLET BY MOUTH EVERY 6 HOURS NEEDED FOR NAUSEA 60 Tab 0 Furosemide 40 MG Oral Tablet (Lasix) 40 mg in AM, 20 mg in PM 270 Tab 1 Spironolactone 25 MG Oral Tablet (Aldactone) [...] FOR DIAGNOSIS CODE OF E11.9 300Each 1 Albuterol Sulfate (VENTOLIN HFA) 108 (90 Base) MCG/ACT AERS Inhale 2 Puffs by mouth 2 times a day. guaiFENesin-codeine (ROBITUSSIN AC) 100-10 MG/5ML solution Take 10 mL by mouth every 4 hours as needed. zoster vac recomb adjuvanted (SHINGRIX) 50 MCG/0.5ML injection Inject 0.5 mL into a large muscle now and repeat dose in 60 to 180 days. Please fax date this was given to our office. 1 Each 1 albuterol sulfate (PROVENTIL) (2.5 MG/3ML) 0.083% [...] mouth daily before breakfast. 90 Tab 3 Nebulizers (NEBULIZER COMPRESSOR) MISC Inhale via nebulizer. Use as directed. Please give tubing to use with it. 1 Each 1 [facility] SENNA 8.6 MG Tablet TAKE 2 [...] 1000 UNITS PO TABS one tablet daily The patient's medication list was reviewed and updated as needed. 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 OBJECTIVE: There were no vitals taken for this visit. PHYSICAL EXAM: HEENT: PERRLA, EOMI, anicteric sclera, b/l tympanic membrane is pearly white, no erythema, no pharyngeal erythema, no lymphadenopathy, neck supple CVS: RRR, no murmurs, rubs or gallops, s1 s 2normal. RESP: clear to auscultation, no wheezing or crackles ABD: soft, left lower abd minimal tenderness. EXT: no edema, cyanosis, peripheral pulses palpable bilaterally No large joint swelling, no redness, range of motion normal. Skin normal. Gait normal. Mood stable No focal weakness ASSESSMENT AND PLAN: Diverticulitis of colon (Primary) - BASIC METABOLIC PANEL; Future; Expected date: 06/05/2021 Pt needs to have her PICC line out as soon as possible by MA[employer]GER [employer]./ we called an dleft a message for them to speak with the patient and remove the PICC line. Hospital discharge follow-up - DISCH MED RECON CUR MED LIS Type 2 diabetes mellitus with hemoglobin A1c goal of less than 7.5% (HCC) Hemoglobin AIC Results: Lab Results Component Value Date/Time HEMOGLOBIN A1C - [facility] 7.2 (H) 03/09/2021 10:49 AM HEMOGLOBIN A1C - [facility] 6.6 (H) 08/26/2019 02:55 PM HEMOGLOBIN A1C - [facility] 6.8 (H) 07/27/2018 11:32 AM HEMOGLOBIN A1C - [facility] 6.2 01/14/2018 12:03 PM Type 2 diabetes mellitus with stage 3a chronic kidney disease, without long-term current use of insulin (HCC) On Amaryl. Diet discussed. Hemoglobin AIC Results: Lab Results Component Value Date/Time HEMOGLOBIN A1C - [facility] 7.2 (H) 03/09/2021 10:49 AM HEMOGLOBIN A1C - [facility] 6.6 (H) 08/26/2019 02:55 PM HEMOGLOBIN A1C - [facility] 6.8 (H) 07/27/2018 11:32 AM HEMOGLOBIN A1C - [facility] 6.2 01/14/2018 12:03 PM Hyperlipidemia with target LDL less than 100 Low fat diet. On statin. Noon statin. cturnal hypoxia Pt uses 2 lit oxygen during day time and 4lit at night. Sleep apnea, obstructive Chronic systolic heart failure (HCC) - Restart Digoxin 125 MCG Oral Tablet (Lanoxin); Take 1 Tab by mouth daily. Paroxysmal atrial fibrillation (HCC) - Restart Digoxin 125 MCG Oral Tablet (Lanoxin); Take 1 Tab by mouth daily. - Restart Carvedilol 3.125 MG Oral Tablet (Coreg); Take 1 Tab by mouth 2 times a day. With food Marcela Pinto MD documented in this encounter Nursing Notes * Chelsea Jaffe LPN - 06/05/2021 11:06 AM EDT Chief Complaint Patient presents with Hospital Follow-Up was in [facility] for abscess on colon. Patient had 20 days of IV abx. still has some side pain. documented in this encounter Plan of Treatment Upcoming Encounters Date Type Specialty Care Team Description 06/13/2021 Office Visit Cardiology Dulce Merino CRNP [address] [facility] [address] [phone] 07/10/2021 Office Visit Internal Medicine Marcela Pinto MD 200 [facility] [place] [address] [phone] 08/08/2021 Nurse Only Ancillary Im, Nurse Annual Wellness [facility] [place] [address] [phone] 08/14/2021 Office Visit Internal Medicine Marcela Pinto MD 200 [facility] [place] [address] [phone] Scheduled Orders Name Type Priority Associated Diagnoses Orde r Schedule BASIC METABOLIC PANEL Lab Routine Diverticulitis of colon Expected: 06/05/2021 (Approximate), Expires: 06/05/2022 Health Maintenance Due Date Last Done Comments [...] Diverticulitis of colon (without mention of hemorrhage) Hospital discharge follow-up Other follow-up examination Type 2 diabetes mellitus with hemoglobin A1c goal of less than 7.5% (HCC) Type 2 diabetes mellitus with stage 3a chronic kidney disease, without long-term current use of insulin (HCC) Hyperlipidemia with target LDL less than 100 Other and unspecified hyperlipidemia Nocturnal hypoxia Hypoxemia Sleep apnea, obstructive Obstructive sleep apnea (adult) (pediatric) Chronic systolic heart failure (HCC) Chronic systolic heart failure Paroxysmal atrial fibrillation (HCC) Atrial fibrillation documented in this encounter Advance Directives Documents on File Type Date Recorded Patient Hand Hose Cutter Expl anation Advanced 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
--- OUTSIDE RECORDS SUMMARY | 2023-06-18 03:08 | External Medical Summary | Summary of Care ---
Author Name Unknown Organization [place] [address] Care Team Providers Care Environmental Lawyer Name Role Phone Marcela Pinto MD Primary Care Provider + Encounter Details Date Type Department Care Team Description 05/30/2021 Orders Only General Internal Medicine [facility] [place] 200 [facility] [place] [address] Marcela Pinto MD 200 [facility] [place] [address] [phone] Allergies Active Allergy Reactions Severity Noted Date Comments Valsartan 07/10/2010 Enalapril 05/21/2006 Escitalopram Oxalate Nausea/vomiting 10/11/2009 Nauseated Iodinated Diagnostic Agents Nausea/vomiting 05/2010 IV Contrast Iodine Hives 12/18/2009 IV Contrast Metoprolol Tartrate 11/18/2006 Made pulse low [place] Oil-Black Currant-Vit E 07/10/2010 Verapamil 03/21/2004 Bupropion Hcl 10/30/2009 Makes pt sick in the stomach documented as of this encounter (statuses as of 05/30/2021) Medications Medication Sig Dispensed Refills Start Date [...] as of this encounter (statuses as of 05/30/2021) Active Problems Problem Noted Date Type 2 [...] as of this encounter (statuses as of 05/30/2021) Resolved Problems Problem Noted Date Resolved Date [...] Hypoxemia 10/08/2011 10/30/2015 Genetic Sleep Disorder Research Other*[id number] 07/25/2011 05/15/2016 Diverticulitis of colon 07/25/2011 01/06/20 [...] as of this encounter (statuses as of 05/30/2021) Immunizations Name Administration Dates Next Due COVID-19 mRNA, LNP-s, No Pre serve, 2-Dose Series (MoPix) 12/22/2020,2020 Hepatitis B, 20+ yrs 10/01/2017,04/21/2017,03/20 Pneumococcal [...] Visit Internal Medicine Marcela Pinto MD 200 [facility] [place] [address] [phone] 06/13/2021 Office Visit Cardiology Dulce Merino CRNP 132 [facility] [place] [address] [phone] 07/10/2021 Office Visit Internal Medicine Marcela Pinto MD 200 [facility] [place] [address] [phone] 08/08/2021 Nurse Only Ancillary Im, [facility] 200 [facility] [place] [address] [phone] 08/14/2021 Office Visit Internal Medicine Marcela Pinto MD 200 [facility] [place] [address] [phone] Health Maintenance Due Date Last Done Comments [...] Priority Date/Time Associated Diagnosis Comments CHEMISTRY-OUTSIDE Routine 05/28/2021 documented in this encounter Results * CHEMISTRY-OUTSIDE (05/28/2021) CREATININE-OUTSIDE LAB 1.19(A) 0.55 - 1.02 MG/DL OUTSIDE LAB (SEE SCANNED REPORT) EGFR-OUTSIDE LAB 46(A) >60 ML/MIN OUTSIDE LAB (SEE SCANNED REPORT) POTASSIUM-OUTSIDE LAB 3.6 3.5 - 5.1 MMOL/L OUTSIDE LAB (SEE SCANNED REPORT) GLUCOSE-OUTSIDE LAB 116(A) 70 - 110 MG/DL OUTSID E LAB [...] LAB OUTSIDE LAB (SEE SCANNED REPORT) HEMOGLOBIN, [id number] LAB OUTSIDE LAB (SEE SCANNED REPORT) PHOSPHORUS-OUTSIDE LAB OUTSIDE LAB (SEE SCANNED REPORT) PTH-OUTSIDE LAB OUTSIDE LAB (SEE SCANNED REPORT) MICROALBUMIN RATIO-OUTSIDE LAB OUTSIDE LAB (SEE SCANNED REPORT) PROTEIN, UA-OUTSIDE LAB OUTSIDE LAB (SEE SCANNED REPORT) HEMOGLOBIN-OUTSIDE LAB 11.1(A) 12.0 - 16.0 G/DL OUTSIDE LAB (SEE SCANNED REPORT) CHEMISTRY COMMENT-OUTSIDE LAB Comment:CMP, CBCD, SED RATE OUTSIDE LAB (SEE SCANNED REPORT) Specimen Narrative Performed At OUTSIDE LAB (SEE SCANNED REPORT) documented in this encounter Advance Directives Documents on File Type Date Recorded Patient Landfill Grader Expl anation Advanced 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
--- OUTSIDE RECORDS SUMMARY | 2023-06-18 03:08 | External Medical Summary | Summary of Care ---
Author Name Unknown Organization [facility] Address [facility] [place] [address] Care Team Providers Care Oracle Database Administrator Name Role Phone Marcela Pinto MD Primary Care Provider + Reason for Visit * Reason Onset Date Comments Emergency Department Follow-Up 06/12/2021 Encounter Details Date Type Department Care Team Description 06/12/2021 Telephone General Internal Medicine [facility] 200 [facility] [place] [address] Marcela Pinto MD [address] [place] [address] [phone] Emergency Department Follow-Up (06/12) Allergies Active Allergy Reactions Severity Noted Date Comments Valsartan 07/10/2010 Enalapril 05/21/2006 Escitalopram Oxalate Nausea/vomiting 10/11/2009 Nauseated Iodinated Diagnostic Agents Nausea/vomiting 05/2010 IV Contrast Iodine Hives 12/18/2009 IV Contrast Metoprolol Tartrate 11/18/2006 Made pulse low [place] Oil-Black Currant-Vit E 07/10/2010 Verapamil 03/21/2004 Bupropion [...] tubing to use with it. 1 Each 11/12/2018 Active glimepiride (AMARYL) 4 MG TabletIndications:Typ [...] Hypoxemia 10/08/2011 10/30/2015 Genetic Sleep Disorder Research Other*[id number] 07/25/2011 05/15/2016 Diverticulitis of colon 07/25/2011 01/06/20 [...] mRNA, LNP-s, No Pre serve, 2-Dose Series (Gojee) 12/22/2020,2020 Hepatitis B, 20+ yrs 10/01/2017,04/21/2017,03/20 Pneumococcal [...] Telephone Encounter - Hiwot Valladares LPN - 06/12/2021 11:54 AM EDT Emergency Department Follow Up: When was patient seen: 06/11/2021 Which ED: [facility] What were they seen for: SOB/Dyspnea What testing did they have done: cxr, ECG, Blood work What did ED think was wrong (dx): COPD, Atrial fibrillation Any new medications prescribed: Carvedilol, prednisone 40 mg taper How is patient feeling today: Patient state she is feeling ok today but not good. She reports she is scheduled to see her Insurance Account Representative tomorrow after being the ER. Confirmed appointment in chart withher for at 2:30 pm at [facility] Patient concerns today: She denies any needs today, refused to schedule sooner with Dr. Blair roldan sees what the Insurance Account Representative says. Patient to call If needs seen sooner than 07/10 documented in this encounter Plan of Treatment Upcoming Encounters Date Type Specialty Care Team Description 06/13/2021 Office Visit Cardiology Dulce Merino CRNP 132 [facility] [place] [address] [phone] 07/10/2021 Office Visit Internal Medicine Marcela Pinto MD 200 [facility] [place] [address] [phone] 08/08/2021 Nurse Only Ancillary Im, Nurse Annual Wellness [place] [address] [place] [address] [phone] 08/14/2021 Office Visit Internal Medicine Marcela Pinto MD [address] [place], [place] [address] [phone] Health Maintenance Due Date Last Done Comments [...] Documents on File Type Date Recorded Patient Hot Frame Tender Expl 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
--- OUTSIDE RECORDS SUMMARY | 2023-06-18 03:09 | External Medical Summary | Summary of Care ---
Author Name Unknown Organization [place] [address] Care Team Providers Care Pipe Fitter Soft Copper Name Role Phone Marcela Pinto MD Primary Care Provider + Encounter Details Date Type Department Care Team Description 05/18/2021 Orders Only Lab Mobile Phlebotomy [facility] [address] [place] [address] Doug Kovacs DO [address] [place] [address] Routine medical exam* Allergies Active Allergy Reactions Severity Noted Date Comments Valsartan 07/10/2010 Enalapril 05/21/2006 Escitalopram Oxalate Nausea/vomiting 10/11/2009 Nauseated Iodinated Diagnostic Agents Nausea/vomiting 05/2010 IV Contrast Iodine Hives 12/18/2009 IV Contrast Metoprolol Tartrate 11/18/2006 Made pulse low [place] Oil-Black Currant-Vit E 07/10/2010 Verapamil 03/21/2004 Bupropion Hcl 10/30/2009 Makes pt sick in the stomach documented as of this encounter (statuses as of 05/18/2021) Medications Medication Sig Dispensed Refills Start Date [...] RESCUE KIT: Take for Colds. 0 Active Zafirlukast 20 MG Oral Tablet (ACCOLATE)Indications :Asthma with severity to be determined TAKE 1 TABLET BY MOUTH EVERY DAY 90 Tab 3 08/15/2020 Active Combivent Respimat 20-100 MCG/ACT Inhalation Aerosol [...] EVERY DAY 90 Tab 2 01/25/2021 Active Atorvastatin Calcium 40 MG Oral Tablet (Lipitor)Indications: Hyperlipidemia with target LDL less than 100 TAKE 1 TABLET BY MOUTH EVERY DAY 90 Tab 1 02/12/2021 Active Furosemide 40 MG Oral Tablet (Lasix)Indications:Ch [...] 2 times a day. 0 04/09/2021 Active documented as of this encounter (statuses as of 05/18/2021) Active Problems Problem Noted Date Chronic systolic heart failure 1 Pulmonary HTN 03/05/2021 Chronic hypoxemic respiratory failure Paroxysmal atrial fibrillation 1 Diabetes mellitus with stage 3 chronic k idney disease 05/22/2020 Overview: Per CKD protocol Morbid obesity with BMI of 40.0-44.9, ad [...] as of this encounter (statuses as of 05/18/2021) Resolved Problems Problem Noted Date Resolved Date Asthma in remission 01/09/2021 03/05/2021 Asthma, mild persistent 01/09/2021 03/05/20 Asthma, moderate persistent 01/09/202102/11 Asthma, severe persistent 01/09/20212020 Intermittent asthma with reliever use up to twic e per week 01/09/2021 03/05/2021 Body mass index (BMI) of 40.0 to [...] Hypoxemia 10/08/2011 10/30/2015 Genetic Sleep Disorder Research Other*[id number] 07/25/2011 05/15/2016 Diverticulitis of colon 07/25/2011 01/06/20 [...] as of this encounter (statuses as of 05/18/2021) Immunizations Name Administration Dates Next Due COVID-19 mRNA, LNP-s, No Pre serve, 2-Dose Series (Wanderu) 12/22/2020,2020 Hepatitis B, 20+ yrs 10/01/2017,04/21/2017,03/20 Pneumococcal [...] Merino CRNP [address] [place] [address] [phone] 07/10/2021 Office Visit Internal Medicine Marcela Pinto MD [address] [facility] [address] [facility] [address] [phone] 08/08/2021 Nurse Only Ancillary Im, [facility] [address] [place] [address] [phone] 08/14/2021 Office Visit Internal Medicine Marcela Pinto MD [address] [place] [address] [phone] Pending Results Name Type Priority Associated Diagnoses Date /Time BASIC METABOLIC PANEL Lab Routine Routine medical exam 05/18/2021 5:30 AM EDT CBC Lab Routine Routine medical exam 05/18/2021 5:30 AM EDT Scheduled Orders Name Type Priority Associated Diagnoses Orde r Schedule BASIC METABOLIC PANEL Lab Routine Routine medical exam Expected: 05/18/2021, Expires: 05/18/2022 CBC Lab Routine Routine medical exam Expected: 05/18/2021, Expires: 05/18/2022 Health Maintenance Due Date Last Done Comments Zoster Vaccines (2 of 3) 08/31/2012 07/06/2012 Influenza Vaccine (FLU shot) (#1) 2021 06/22/2020, 06/22/2020, 07/09/2019, Additional history exists DIABETES-HGBA1C EVERY 6 MONTHS 09/09/2021 03/09/2021, 12/05/2020, 08/10/2020, Additional history exists CKD GFR USE SMARTSET 52000 11/12/202105/12, 03/09/2021, 03/05/2021, Additional history exists DIABETES-FOOT EXAM 12/21/2021 12/21/2020, 0 10/19/2019, 01/05/2019, Additional history exists CKD PHOS USE SMARTSET 86126 03/09/2022 03/09/2021, 0 03/22/2019 DIABETES-EYE EXAM 03/26/2022 03/26/2021, , 08/10/2019, Additional history exists CKD HGB USE SMARTSET 08698 05/12/202205/12, 03/09/2021, 03/09/2021, Additional history exists Dexa Scan 08/08/2025 08/08/2020, [...] of this encounter Visit Diagnoses Diagnosis Routine medical exam- Primary Routine general medical examination at a health care facility documented in this encounter Advance Directives Documents on File Type Date Recorded Patient Director Of Medical Services Expl anation Advanced 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
--- OUTSIDE RECORDS SUMMARY | 2023-06-18 03:09 | External Medical Summary | Summary of Care ---
Author Name Unknown Organization [place] [address] Care Team Providers Care Circle Cutting Saw Operator Name Role Phone Marcela Pinto MD Primary Care Provider + Encounter Details Date Type Department Care Team Description 05/22/2021 Orders Only General Internal Medicine [facility] [place] [address] [facility] [place] [address] Marcela Pinto MD 200 [facility] [place] [address] [phone] Allergies Active Allergy Reactions Severity Noted Date Comments Valsartan 07/10/2010 Enalapril 05/21/2006 Escitalopram Oxalate Nausea/vomiting 10/11/2009 Nauseated Iodinated Diagnostic Agents Nausea/vomiting 05/2010 IV Contrast Iodine Hives 12/18/2009 IV Contrast Metoprolol Tartrate 11/18/2006 Made pulse low [place] Oil-Black Currant-Vit E 07/10/2010 Verapamil 03/21/2004 Bupropion Hcl 10/30/2009 Makes pt sick in the stomach documented as of this encounter (statuses as of 05/22/2021) Medications Medication Sig Dispensed Refills Start Date [...] as of this encounter (statuses as of 05/22/2021) Active Problems Problem Noted Date Chronic systolic [...] as of this encounter (statuses as of 05/22/2021) Resolved Problems Problem Noted Date Resolved Date [...] Hypoxemia 10/08/2011 10/30/2015 Genetic Sleep Disorder Research Other*[id number] 07/25/2011 05/15/2016 Diverticulitis of colon 07/25/2011 01/06/20 [...] as of this encounter (statuses as of 05/22/2021) Immunizations Name Administration Dates Next Due COVID-19 mRNA, LNP-s, No Pre serve, 2-Dose Series ([employer]) 12/22/2020,2020 Hepatitis B, 20+ yrs 10/01/2017,04/21/2017,03/20 Pneumococcal [...] Pinto MD 200 [facility] [place] [address] [phone] 06/13/2021 Office Visit Cardiology Dulce Merino CRNP [address] [place] [address] [phone] 07/10/2021 Office Visit Internal Medicine Marcela Pinto MD 200 [facility] [place], [place] [address] [phone] 08/08/2021 Nurse Only Ancillary Im, Nurse Annual Wellness [place] [address] [facility] [place] [address] [phone] 08/14/2021 Office Visit Internal Medicine Marcela Pinto MD 200 [facility] [place] [address] [phone] Health Maintenance Due Date Last Done Comments Zoster Vaccines (2 of 3) 08/31/2012 07/06/2012 Influenza Vaccine (FLU shot) (#1) 2021 06/22/2020, 06/22/2020, 07/09/2019, Additional history exists DIABETES-HGBA1C EVERY 6 MONTHS 09/09/2021 03/09/2021, 12/05/2020, 08/10/2020, Additional history exists CKD GFR USE SMARTSET 07129 11/18/202105/21, 05/18/2021, 05/12/2021, Additional history exists DIABETES-FOOT EXAM 12/21/2021 12/21/2020, 0 10/19/2019, 01/05/2019, Additional history exists CKD PHOS USE SMARTSET 14823 03/09/2022 03/09/2021, 0 03/22/2019 DIABETES-EYE EXAM 03/26/2022 03/26/2021, , 08/10/2019, Additional history exists CKD HGB USE SMARTSET 13196 05/18/202205/21, 05/18/2021, 05/12/2021, Additional history exists Dexa Scan 08/08/2025 08/08/2020, [...] Priority Date/Time Associated Diagnosis Comments CHEMISTRY-OUTSIDE Routine 05/21/2021 documented in this encounter Results * CHEMISTRY-OUTSIDE (05/21/2021) CREATININE-OUTSIDE LAB 1.07(A) 0.55 - 1.02 MG/DL OUTSIDE LAB (SEE SCANNED REPORT) EGFR-OUTSIDE LAB 52(A) >=60 ML/MIN/1.73M2 OUTSIDE LAB (SEE SCANNED REPORT) POTASSIUM-OUTSIDE LAB 3.4(A) 3.5 - 5.1 MMOL/L OUTSIDE LAB (SEE SCANNED REPORT) GLUCOSE-OUTSIDE LAB 131(A) 70 - 110 MG/DL OUTSID E LAB [...] LAB OUTSIDE LAB (SEE SCANNED REPORT) HEMOGLOBIN, A0B-AAQUERE LAB OUTSIDE LAB (SEE SCANNED REPORT) PHOSPHORUS-OUTSIDE LAB OUTSIDE LAB (SEE SCANNED REPORT) PTH-OUTSIDE LAB OUTSIDE LAB (SEE SCANNED REPORT) MICROALBUMIN RATIO-OUTSIDE LAB OUTSIDE LAB (SEE SCANNED REPORT) PROTEIN, UA-OUTSIDE LAB OUTSIDE LAB (SEE SCANNED REPORT) HEMOGLOBIN-OUTSIDE LAB 10.5(A) 12 - 16 GM/DL OUTSIDE LAB (SEE SCANNED REPORT) CHEMISTRY COMMENT-OUTSIDE LAB Comment:SEE SCAN: CBCD, SED RATE, CMP OUTSIDE LAB (SEE SCANNED REPORT) Specimen Narrative Performed At OUTSIDE LAB (SEE SCANNED REPORT) documented in this encounter Advance Directives Documents on File Type Date Recorded 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
--- OUTSIDE RECORDS SUMMARY | 2023-06-18 03:09 | External Medical Summary | Summary of Care ---
Author Name Unknown Organization [place] [address] Care Team Providers Care Ip Litigation Paralegal Name Role Phone Marcela Pinto MD Primary Care Provider + Reason for Visit * Reason Onset Date Comments Advice 05/16/202105/17 Encounter Details Date Type Department Care Team Description 05/16/2021 Telephone General Internal Medicine [facility] [address] [facility] [place] [address] Marcela Pinto MD 200 [place] [address] [phone] Advice (05/17) Allergies Active Allergy Reactions Severity Noted Date Comments Valsartan 07/10/2010 Enalapril 05/21/2006 Escitalopram Oxalate Nausea/vomiting 10/11/2009 Nauseated Iodinated Diagnostic Agents Nausea/vomiting 05/2010 IV Contrast Iodine Hives 12/18/2009 IV Contrast Metoprolol Tartrate 11/18/2006 Made pulse low [place] Oil-Black Currant-Vit E 07/10/2010 Verapamil 03/21/2004 Bupropion Hcl 10/30/2009 Makes pt sick in the stomach documented as of this encounter (statuses as of 05/28/2021) Medications Medication Sig Dispensed Refills Start Date [...] mg by mouth daily. 0 1 Active Fludrocortisone Acetate 0.1 MG Oral Tablet (Florinef) Take 0.1 mg by mouth daily. 0 1 Active Hydrocortisone 20 MG Oral Tablet (Cortef) Take 20 mg by mouth daily in the morning and 10 mg by mouth daily in the evening. 0 1 Active Advair HFA 230-21 MCG/ACT Inhalation Aerosol (fluticasone-Salmet reg) Inhale 2 Puffs by mouth 2 times a day. 0 1 Active Zafirlukast 20 MG Oral Tablet (ACCOLATE)Indicatio ns:Asthma with severity to be determined TAKE 1 TABLET BY MOUTH EVERY DAY 90 Tab 3 0 05/18/20 21 Discontinued Atorvastatin Calcium 40 MG Oral Tablet (Lipitor)Indication s:Hyperlipidemia with target LDL less than 100 TAKE 1 TABLET BY MOUTH EVERY DAY 90 Tab 1 1 05/18/20 21 Discontinued documented as of this encounter (statuses as of 05/28/2021) Active Problems Problem Noted Date Chronic systolic [...] as of this encounter (statuses as of 05/28/2021) Resolved Problems Problem Noted Date Resolved Date [...] Hypoxemia 10/08/2011 10/30/2015 Genetic Sleep Disorder Research Other*[id number] 07/25/2011 05/15/2016 Diverticulitis of colon 07/25/2011 01/06/20 [...] as of this encounter (statuses as of 05/28/2021) Immunizations Name Administration Dates Next Due COVID-19 mRNA, LNP-s, No Pre serve, 2-Dose Series ([employer]) 12/22/2020,2020 Hepatitis B, 20+ yrs 10/01/2017,04/21/2017,03/20 [...] Miscellaneous Notes * Telephone Encounter - Marcela Pinot MD - 05/28/2021 3:28 PM EDT Will sign upon received. * Telephone Encounter - Hiwot Valladares LPN - 05/22/2021 10:49 AM EDT Fax from [facility] received, Home Infusion/Certification form placed in PCP folder for signature. * Telephone Encounter - Hiwot Valladares LPN - 05/22/2021 8:44 AM EDT Called and spoke with a program services assistant at [facility] in [place]. Informed her of request per PCP. Requested they refax the order the order request to [phone] to attn: Dr. Pinto. She voiced understanding. * Telephone Encounter - Hiwot Valladares LPN - 05/22/2021 8:42 AM EDT Called to follow up with Sigrid at [facility]. She states patient was discharged this past week. To obtain exact orders requested for authorization from Dr. Pinto, she provided [facility] contact information. [facility], [facility], [place]. Will contact them now. * Telephone Encounter - Hiwot Valladares LPN - 05/17/2021 1:30 PM EDT Left message for Windows Technical Specialist, Sigrid to return call. Please inform her of Provider message below and send responses. * Telephone Encounter - Marcela Pinto MD - 05/17/2021 11:52 AM EDT Can we find out exact orders they need. I believe she is on terminal makeup operator antibiotic Zosyn for next 3 to 4 weeks and will need weekly labs andrés BMP, CBCD. Not sure whether they need any formto be filled or written order which we can fax them? If we can find out exact orders and how to send it to them will be helpsful. Thanks. * Telephone Encounter - Hiwot Valladares LPN - 05/17/2021 9:54 AM EDT Please see message below, is authorization for [facility] approved? * Telephone Encounter - Angelina Linder LPN - 05/17/2021 8:44 AM EDT Sigrid calling again from [facility]. Patient is being discharged tomorrow. [facility] manages the labs and the ABXs that patient will have in place until 06/01/21. Orders are already placed from [facility], but [facility] needs PCPs authorization to do the servicesand that PCP will be signing physician for any orders that will need signed in that time frame. Sigrid states that no orders need faxed to [facility] for this request. Call Sigrid back at [phone] with the authorization from Dr Pinto or with any further questions. * Telephone Encounter - Tosin Cannon OSA - 05/17/2021 8:42 AM EDT Reason for patient's call: Sigrid from [facility] calling back to speak w/ a nurse Caller was transferred to [facility] at the nurse line. * Telephone Encounter - Vani Pelletier LPN - 05/16/2021 12:38 PM EDT Sigrid calling from [facility]. States that pt is going to be d/c'd home 05.17.21. In order for pt to go home on the IV abx [facility] needs to make sure that pt PCP will sign orders d/t [facility] not currently having infection control Doc. Pt needs to be on abx until 06.01.21 Please call Sigrid and let her know if agreeable, . [facility] will do all lab draws and take care of ABX. Please advise * Telephone Encounter - Cindy Vera OSA - 05/16/2021 12:35 PM EDT Reason for patient's call: Speak to a nurse about IV antibiotics for this pt Caller was transferred to [facility] at the nurse line. documented in this encounter Plan of Treatment Upcoming Encounters Date Type Specialty Care Team Description 06/05/2021 Office Visit Internal Medicine Marcela Pinto MD [address] [place] [address] [phone] 06/13/2021 Office Visit [facility]iology [facility] [address] [phone] 07/10/2021 Office Visit Internal Medicine Marcela Pinto MD [address] [place] [address] [phone] 08/08/2021 Nurse Only Ancillary Im, Nurse Annual Wellness [facility] [address] [place] [address] [phone] 08/14/2021 Office Visit Internal Medicine Marcela Pinot MD [address] [place] [address] [phone] Health Maintenance Due Date Last Done Comments Zoster Vaccines (2 of 3) 08/31/2012 07/06/2012 Influenza Vaccine (FLU shot) (#1) 2021 06/22/2020, 06/22/2020, 07/09/2019, Additional history exists DIABETES-HGBA1C EVERY 6 MONTHS 09/09/2021 03/09/2021, 12/05/2020, 08/10/2020, Additional history exists CKD GFR USE SMARTSET 15201 11/21/202105/21, 05/18/2021, 05/12/2021, Additional history exists DIABETES-FOOT EXAM 12/21/2021 12/21/2020, 0 10/19/2019, 01/05/2019, Additional history exists CKD PHOS USE SMARTSET 25450 03/09/2022 03/09/2021, 0 03/22/2019 DIABETES-EYE EXAM 03/26/2022 03/26/2021, , 08/10/2019, Additional history exists CKD HGB USE SMARTSET 17889 05/21/202205/21, 05/18/2021, 05/12/2021, Additional history exists Dexa Scan [...] Documents on File Type Date Recorded Patient Instrument Room Technician Expl 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
--- OUTSIDE RECORDS SUMMARY | 2023-06-18 03:09 | External Medical Summary | Summary of Care ---
Author Name Unknown Organization [place] [address] Care Team Providers Care Clinical Practitioner Name Role Phone Alex Pinto MD Primary Care Provider + Reason for Visit * Reason Comments eRx-Medication Refill Encounter Details Date Type Department Care Team Description 05/17/2021 Refill General Internal Medicine [facility] [address] [facility] [place] [address] Alex Pinto MD [address] [facility] [place], [place] [id number] Hyperlipidemia with target LDL less than 100; Asthma with severity to be determined Allergies Active Allergy Reactions Severity Noted Date Comments Valsartan 07/10/2010 Enalapril 05/21/2006 Escitalopram Oxalate Nausea/vomiting 10/11/2009 Nauseated Iodinated Diagnostic Agents Nausea/vomiting 05/2010 IV Contrast Iodine Hives 12/18/2009 IV Contrast Metoprolol Tartrate 11/18/2006 Made pulse low [place] Oil-Black Currant-Vit E 07/10/2010 Verapamil 03/21/2004 Bupropion [...] HOURS NEEDED FOR NAUSEA 60 Tab 0 06/22/202 1 Active methIMAzole 10 MG Oral Tablet [...] EVERY DAY 90 Tab 3 1 Active Zafirlukast 20 MG Oral Tablet [...] Hypoxemia 10/08/2011 10/30/2015 Genetic Sleep Disorder Research Other*[id number] 07/25/2011 05/15/2016 Diverticulitis of colon 07/25/2011 01/06/20 [...] mRNA, LNP-s, No Pre serve, 2-Dose Series ([employer]) 12/22/2020,2020 Hepatitis B, 20+ yrs 10/01/2017,04/21/2017,03/20 Pneumococcal [...] Notes * Telephone Encounter - Hellen Gambino [facility] - 05/18/2021 10:19 AM EDT Signed Prescriptions: Disp Refills Atorvastatin Calcium 40 MG Oral Tablet (Li*90 Tab 1 Sig: TAKE 1 TABLET BY MOUTH EVERY DAYAuthorizing Provider: ALEX PINTO User: HELLEN GAMBINOZafirlukast 20 MG Oral Tablet (Accolate) 90 Tab 3 Sig: TAKE 1 TABLET BY MOUTH EVERY DAYAuthorizing Provider: ALEX PINTO User: HELLEN GAMBINO documented in this encounter Plan of Treatment Upcoming Encounters Date Type Specialty Care Team Description 06/13/2021 Office Visit Cardiology Dulce Merino CRNP [address] [place] [address] [phone] 07/10/2021 Office Visit Internal Medicine Alex Pinto MD [address] [place] [address] [phone] 08/08/2021 Nurse Only Ancillary Im, Nurse Annual Wellness [facility] [address] [place] [address] [phone] 08/14/2021 Office Visit Internal Medicine Alex Pinto MD [address] [facility] [place], [place] [address] [phone] Health Maintenance Due Date Last Done Comments Zoster Vaccines (2 of 3) 08/31/2012 07/06/2012 Influenza Vaccine (FLU shot) (#1) 2021 06/22/2020, 06/22/2020, 07/09/2019, Additional history exists DIABETES-HGBA1C EVERY 6 MONTHS 09/09/2021 03/09/2021, 12/05/2020, 08/10/2020, Additional history exists CKD GFR USE SMARTSET 50872 11/18/202105/18, 05/12/2021, 03/09/2021, Additional history exists DIABETES-FOOT EXAM 12/21/2021 12/21/2020, 0 10/19/2019, 01/05/2019, Additional history exists CKD PHOS USE SMARTSET 21716 03/09/2022 03/09/2021, 0 03/22/2019 DIABETES-EYE EXAM 03/26/2022 03/26/2021, , 08/10/2019, Additional history exists CKD HGB USE SMARTSET 68050 05/18/202205/18, 05/12/2021, 03/09/2021, Additional history exists Dexa Scan 08/08/2025 [...] hyperlipidemia Asthma with severity to be determined documented in this encounter Advance Directives Documents on File Type Date Recorded 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
--- OUTSIDE RECORDS SUMMARY | 2023-06-18 03:09 | External Medical Summary | Summary of Care ---
Author Name Unknown Organization [place] [address] Care Team Providers Care Promotions Executive Producer Name Role Phone Marcela Pinto MD Primary Care Provider + Reason for Visit * Reason Onset Date Comments Hospital Follow-Up shortness of breath, uti, diverticulitis; patient states she felt tired and didn't feel good at all , friday, and friday, but said she is starting to feel a little better today Hospital Follow-Up 04/24/2021 Encounter Details Date Type Department Care Team Description 04/24/2021 Office Visit General Internal Medicine [facility] [address] [facility] [place] [place] [address] Marcela Pinto MD [address] [place] [address] [phone] Paroxysmal atrial fibrillation (HCC)*; Hospital discharge follow-up; Type 2 diabetes mellitus with hemoglobin A1c goal of less than 7.5% (HCC); Controlled substance agreement signed; Chronic hypoxemic respiratory failure (HCC); Benign neoplasm of adrenal gland, unspecified laterality; COPD, group B, 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 (HCC); Nocturnal hypoxia; Hyperlipidemia with target LDL less than 100; Chronic systolic heart failure (HCC); HECTOR (generalized anxiety disorder); Chronic bilateral low back pain without sciatica Allergies Active Allergy Reactions Severity Noted Date Comments Valsartan 07/10/2010 Enalapril 05/21/2006 Escitalopram Oxalate Nausea/vomiting 10/11/2009 Nauseated Iodinated Diagnostic Agents Nausea/vomiting 05/2010 IV Contrast Iodine Hives 12/18/2009 IV Contrast Metoprolol Tartrate 11/18/2006 Made pulse low [place] Oil-Black Currant-Vit E 07/10/2010 Verapamil 03/21/2004 Bupropion Hcl 10/30/2009 Makes pt sick in the stomach documented as of this encounter (statuses as of 05/17/2021) Medications Medication Sig Dispensed Refills Start Date [...] 0 Active Zafirlukast 20 MG Oral Tablet (ACCOLATE)Indicatio [...] 02/12/2021 Active Furosemide 40 MG Oral Tablet (Lasix)Indications: Chronic systolic heart failure (HCC) 40 mg in AM, 20 mg in PM 270 Tab 1 03/05/2021 Active Spironolactone 25 MG Oral Tablet (Aldactone)Indicati [...] 04/03/2021 Active methIMAzole 10 MG Oral Tablet (Tapazole)Indicatio [...] 2 times a day. 0 04/09/2021 Active Carvedilol 6.25 MG Oral Tablet (Coreg)Indications: Chronic systolic heart failure (HCC),Paroxysmal atrial fibrillation (HCC) Take 1 Tab by mouth 2 times a day. with food 180 Tab 3 03/05/2021 1 Discontinue d(Medicatio n List Clean Up) Fluticasone-Salmete rol 250-50 MCG/DOSE Inhalation Aerosol Powder Breath Activated (Advair Diskus) Inhale 1 Puff by mouth 2 times a day. 0 1 Discontinue d(Medicatio n List Clean Up) Digoxin 125 MCG Oral Tablet (Lanoxin)Indication s:Chronic systolic heart failure (HCC),Paroxysmal atrial fibrillation (HCC) Take 1 Tab by mouth once a day on Friday, Friday, Friday ,and Friday only. 30 Tab 11 03/16/2021 1 Discontinue d(Medicatio n List Clean Up) Fosfomycin Tromethamine 3 GM Oral Packet (Monurol)Indication s:Acute cystitis without hematuria Take 3 g by mouth every other day. 2 Packet 0 04/10/2021 1 Discontinue d(Patient preference/ discontinua tion) documented as of this encounter (statuses as of 05/17/2021) Active Problems Problem Noted Date Chronic systolic [...] as of this encounter (statuses as of 05/17/2021) Resolved Problems Problem Noted Date Resolved Date [...] Hypoxemia 10/08/2011 10/30/2015 Genetic Sleep Disorder Research Other*[id number] 07/25/2011 05/15/2016 Diverticulitis of colon 07/25/2011 01/06/20 [...] as of this encounter (statuses as of 05/17/2021) Immunizations Name Administration Dates Next Due COVID-19 [...] Sign Reading Time Taken Comments Blood Pressure 114/74 04/24/2021 12:35 PM EDT Pulse 80 04/24/2021 12:35 PM EDT Temperature 36.7 C (98 F) 04/24/2021 12: 35 PM EDT Respiratory Rate 16 04/24/2021 12:3 5 PM EDT Oxygen Saturation 97% 04/24/2021 12: 35 PM EDT 2 liters of O2 Inhaled Oxygen Concentration - - Weight 113.8 kg (250 lb 12. 8 oz) 04/24/2021 12:35 PM EDT Height - - Body Mass Index 41.74 03/05/2021 8:32 AM EDT documented in this encounter Progress Notes * Marcela Pinto MD - 04/24/2021 12:36 PM EDT HPI: Nina Harrington is a 80 year old female who presents with: Chief Complaint Patient presents with Hospital Follow-Up shortness of breath, uti, diverticulitis; patient states she felt tired and didn't feel good at all, friday, and friday, but said she is starting to feel a little better today Hospital Follow-Up Pt is here for the hospital follow up. Chart reviewed from the hospital including admission note, Hand P, consult notes, labs, EKG, imaging and discharge note including discharge meds. Patient states she is feeling better since went back home. Pt was admitted to the hospital on 04/10/21 and was discharged on 04/18/21 . Admission Diagnosis : Tachybrady syndrome, mild acute diverticulitis, UTI, Dehydration. Pt is already scheduled for Cardiology, Endocrine Dr. Camargo and Ophthalmology. Meds reviewed. New meds at discharge: Cortef. Pt is off Digoxin, Coreg. Pt has been followed up by rn case manager hospice and specialists. Patient Active Problem List Diagnosis Code Asthma [...] of less than 7.5% ([facility]) E11.9 Hypercalcemia E83.52 Elevated plasma metanephrines R79.89 Irritable bowel syndrome with constipation K58.1 Ischemic colitis ([facility]) K55.9 HECTOR (generalized anxiety disorder) F41.1 COPD, group B, 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 ([facility]) J44.9 Morbid obesity with BMI of 40.0-44.9, adult ([facility]) E66.01, Z68.41 Gastro-esophageal reflux disease without esophagitis K21.9 Diabetes mellitus with stage 3 chronic kidney disease ([facility]) E11.22, N18.30 Paroxysmal atrial fibrillation ([facility]) I48.0 Chronic systolic heart failure ([facility]) I50.22 Pulmonary HTN ([facility]) I27.20 Chronic hypoxemic respiratory failure ([facility]) J96.11 Current Outpatient Medications Medication Sig Dispense Refill Advair HFA 230-21 MCG/ACT Inhalation Aerosol (fluticasone-Salmeterol) [...] daily in the morning and 10 mg bymouth daily in the evening. Klor-Con M20 20 [...] Tabs by mouth daily. 30 Tab 3 Atorvastatin Calcium 40 MG Oral Tablet (Lipitor) TAKE 1 TABLET BY MOUTH EVERY DAY 90 Tab 1 Dicyclomine HCl 20 MG Oral Tablet (Bentyl) TAKE 1 TABLET BY MOUTH EVERY DAY 90 Tab 2 Lisinopril 2.5 MG Oral Tablet (Prinivil) Take 2.5 mg by mouth daily. Combivent Respimat 20-100 MCG/ACT Inhalation Aerosol Solution (Ipratropium- Albuterol) TAKE 1 PUFF BY MOUTH 4 TIMES A DAY 12 g 3 Zafirlukast 20 MG Oral Tablet (ACCOLATE) TAKE 1 TABLET BY MOUTH EVERY DAY 90 Tab 3 doxycycline 100 MG Tablet Take 100 [...] breakfast. 90 Tab 3 Nebulizers (NEBULIZER COMPRESSOR) [facility] [place] via nebulizer. Use as directed. Please [...] 1000 UNITS PO TABS one tablet daily guaiFENesin-codeine (ROBITUSSIN AC) 100-10 MG/5ML solution Take 10 mL by mouth every 4 hours as needed. zoster vac recomb adjuvanted (SHINGRIX) 50 MCG/0.5ML injection Inject 0.5 mL into a large muscle now and repeat dose in 60 to 180 days. Please fax date this was given to our office. 1 Each 1 The patient's medication list was reviewed and updated as needed. 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 OBJECTIVE: Blood pressure 114/74, pulse 80, temperature 36.7 C (98 F), temperature source Tympanic, resp. rate 16, weight 113.8 kg (250 lb 12.8 oz), SpO2 97 %, not currently . PHYSICAL EXAM: HEENT: PERRLA, EOMI, anicteric sclera, b/l tympanic membrane is pearly white, no erythema, no pharyngeal erythema, no lymphadenopathy, neck supple CVS: RRR, no murmurs, rubs or gallops, s1 s 2normal. RESP: clear to auscultation, no wheezing or crackles ABD: soft, minimal tenderness lower abd, EXT: no edema, cyanosis, peripheral pulses palpable bilaterally No large joint swelling, no redness, range of motion normal. Skin normal. Gait normal. Mood stable No focal weakness ASSESSMENT AND PLAN: Paroxysmal atrial fibrillation (HCC) (Primary) Rate controlled. Hospital discharge follow-up - DISCH MED RECON CUR MED LIS Type 2 diabetes mellitus with hemoglobin A1c goal of less than 7.5% (HCC) Continue currentmeds. Controlled substance agreement signed Chronic hypoxemic respiratory failure (HCC) Benign neoplasm of adrenal gland, unspecified laterality COPD, group B, 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 (HCC) On Advair, combivent. Nocturnal hypoxia Hyperlipidemia with target LDL less than 100 Chronic systolic heart failure (HCC) Compensated. On lasix 40 in am and 20 in th eevening. Continue Aldactone 25 mg half tab daily. HECTOR (generalized anxiety disorder) Chronic bilateral low back pain without sciatica - PAIN MANAGEMENT DRUG PANEL, URINE W/ INTERPRETATION; Future; Expected date: 04/24/2021 Marcela Pinto MD documented in this encounter Nursing Notes * Mohinder Landry RN - 04/24/2021 12:18 PM EDT Chief Complaint Patient presents with Hospital Follow-Up shortness of breath, uti, diverticulitis; patient states she felt tired and didn't feel good at all, friday, and friday, but said she is starting to feel a little better today documented in this encounter Plan of Treatment Upcoming Encounters Date Type Specialty Care Team Description 06/13/2021 Office Visit [facility] [place] [address] [phone] 07/10/2021 Office Visit Internal Medicine Marcela Pinto MD 200 [facility] [place] [address] [phone] 08/08/2021 Nurse Only Ancillary Im, Nurse Annual Wellness [facility] [address] [facility] [place] [address] [phone] 08/14/2021 Office Visit Internal Medicine Marcela Pinto MD [address] [facility] [place] [address] [phone] Health Maintenance Due Date Last Done Comments Zoster Vaccines (2 of 3) 08/31/2012 07/06/2012 Influenza Vaccine (FLU shot) (#1) 2021 06/22/2020, 06/22/2020, 07/09/2019, Additional history exists DIABETES-HGBA1C EVERY 6 MONTHS 09/09/2021 03/09/2021, 12/05/2020, 08/10/2020, Additional history exists CKD GFR USE SMARTSET 20158 11/12/202105/12, 03/09/2021, 03/05/2021, Additional history exists DIABETES-FOOT EXAM 12/21/2021 12/21/2020, 0 10/19/2019, 01/05/2019, Additional history exists CKD PHOS USE SMARTSET 31362 03/09/2022 03/09/2021, 0 03/22/2019 DIABETES-EYE EXAM 03/26/2022 03/26/2021, , 08/10/2019, Additional history exists CKD HGB USE SMARTSET 53362 05/12/202205/12, 03/09/2021, 03/09/2021, Additional history exists Dexa [...] filedocumented as of this encounter Results * PAIN MANAGEMENT DRUG PANEL, URINE W/ INTERPRETATION (04/24/2021 1:21 PM EDT) Compliance Interpretation Based on the medication information provided: The presence of hydrocodone and dihydrocodeine is CONSISTENT with current hydrocodone use. Comment:This is an appended report. These results have been appended to a previously preliminary verified report. [facility] Amphetamine Negative Negative [facility] Benzodiazepines Negative Negative [facility] Cannabinoids Negative Negative [facility] Cocaine Metabolite Negative Negative [facility] Hydrocodone / Hydromorphone Refer to confirmation results(A) Negative [facility] Methadone Metabolite Negative Negative [facility] Morphine / Codeine Refer to confirmatio n results(A) Negative [facility] Oxycodone / Oxymorphone Refer to confirmation results(A) Negative [facility] Valid Interpretation Normal [facility] Creatinine TIM 75 mg/dL [facility] Specimen Urine - Urine, Clean Catch Narrative Performed At Cutoff Concentrations: Drug Level Amphetamines 500 ng/mL Benzodiazepines 100 ng/mL Cannabinoids 50 ng/mL Cocaine Metabolite 150 ng/mL Hydrocodone / Hydromorphone 100 ng/mL Methadone Metabolite 100 ng/mL Morphine / Codeine 300 ng/mL Oxycodone / Oxymorphone 100 ng/mL Screening results are presumptive and can only be used for medical purposes. Confirmatory testing is available upon request. [facility] [address] [place] [address] documented in this encounter Visit Diagnoses Diagnosis Paroxysmal atrial fibrillation (HCC)- Primary Atrial fibrillation Hospital discharge follow-up Other follow-up examination Type 2 diabetes mellitus with hemoglobin A1c goal of less than 7.5% (HCC) Controlled substance agreement signed Encounter for long-term (current) use of other medications Chronic hypoxemic respiratory failure (HCC) Chronic respiratory failure Benign neoplasm of adrenal gland, unspecified laterality COPD, group B, 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 (HCC) Nocturnal hypoxia Hypoxemia Hyperlipidemia with target LDL less than 100 Other and unspecified hyperlipidemia Chronic systolic heart failure (HCC) Chronic systolic heart failure HECTOR (generalized anxiety disorder) Generalized anxiety disorder Chronic bilateral low back pain without sciatica documented in this encounter Advance Directives Documents on File Type Date Recorded Patient Window Shade Cutter And Mounter Expl anation Advanced 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
--- OUTSIDE RECORDS SUMMARY | 2023-06-18 03:09 | External Medical Summary | Summary of Care ---
Author Name Unknown Organization [place] [address] Care Team Providers Care Public Health Outreach Worker Name Role Phone Marcela Pinto MD Primary Care Provider + Reason for Visit * Reason Onset Date Comments Appointment 05/17/2021 Encounter Details Date Type Department Care Team Description 05/17/2021 Telephone General Internal Medicine [facility] [address] [place] [address] Marcela Pinto MD [address] [place] [address] [phone] Appointment Allergies Active Allergy Reactions Severity Noted Date Comments Valsartan 07/10/2010 Enalapril 05/21/2006 Escitalopram Oxalate Nausea/vomiting 10/11/2009 Nauseated Iodinated Diagnostic Agents Nausea/vomiting 05/2010 IV Contrast Iodine Hives 12/18/2009 IV Contrast Metoprolol Tartrate 11/18/2006 Made pulse low [place] Oil-Black Currant-Vit E 07/10/2010 Verapamil 03/21/2004 Bupropion Hcl 10/30/2009 Makes pt sick in the stomach documented as of this encounter (statuses as of 05/21/2021) Medications Medication Sig Dispensed Refills Start Date [...] Take 1 Cap by mouth daily. 0 04/27/201 5 Active oxygen GAS Use 4 L/min(Oxygen) [...] A1c goal of less than 7.5% ([facility]) Take 2 mg by mouth [...] as of this encounter (statuses as of 05/21/2021) Active Problems Problem Noted Date Chronic systolic [...] as of this encounter (statuses as of 05/21/2021) Resolved Problems Problem Noted Date Resolved Date [...] Hypoxemia 10/08/2011 10/30/2015 Genetic Sleep Disorder Research Other*[id number] 07/25/2011 05/15/2016 Diverticulitis of colon 07/25/2011 01/06/20 [...] as of this encounter (statuses as of 05/21/2021) Immunizations Name Administration Dates Next Due COVID-19 mRNA, LNP-s, No Pre serve, 2-Dose Series (Yumit) 12/22/2020,2020 Hepatitis B, 20+ yrs 10/01/2017,04/21/2017,03/20 Pneumococcal [...] encounter Miscellaneous Notes * Telephone Encounter - Jazmín Rosa OSA - 05/21/2021 11:03 AM EDT Apt scheduled; pt aware * Telephone Encounter - Jazmín Rosa OSA - 05/18/2021 9:12 AM EDT LMOM * Telephone Encounter - Marcela Pinto MD - 05/18/2021 8:11 AM EDT Please put her for 05/29/21 hospital f/u slot. Prior to that if any acute issues, she can call us. * Telephone Encounter - Milena To OSA - 05/17/2021 10:37 AM EDT Sigrid from [facility] calling in to make hospital discharge appt with Dr Pinto, but no appts available. States that due to pt's condition, pt must be seen by pcp. Please advise. documented in this encounter Plan of Treatment Upcoming Encounters Date Type Specialty Care Team Description 05/29/2021 Office Visit Internal Medicine Marcela Pinto MD [address] [place] [address] [phone] 06/13/2021 Office Visit Cardiology Dulce Merino CRNP [address] [place] [address] [phone] 07/10/2021 Office Visit Internal Medicine Marcela Pinto MD [address] [place] [address] [address] [phone] 08/08/2021 Nurse Only Ancillary Im, Nurse Annual Wellness [place] [address] [facility] [place] [address] [phone] 08/14/2021 Office Visit Internal Medicine Marcela Pinto MD 200 [facility] [place] [address] [phone] Health Maintenance Due Date Last Done Comments Zoster Vaccines (2 of 3) 08/31/2012 07/06/2012 Influenza Vaccine (FLU shot) (#1) 2021 06/22/2020, 06/22/2020, 07/09/2019, Additional history exists DIABETES-HGBA1C EVERY 6 MONTHS 09/09/2021 03/09/2021, 12/05/2020, 08/10/2020, Additional history exists CKD GFR USE SMARTSET 32272 11/18/202105/18, 05/12/2021, 03/09/2021, Additional history exists DIABETES-FOOT EXAM 12/21/2021 12/21/2020, 0 10/19/2019, 01/05/2019, Additional history exists CKD PHOS USE SMARTSET 44200 03/09/2022 03/09/2021, 0 03/22/2019 DIABETES-EYE EXAM 03/26/2022 03/26/2021, , 08/10/2019, Additional history exists CKD HGB USE SMARTSET 90363 05/18/202205/18, 05/12/2021, 03/09/2021, Additional history exists Dexa [...] on File Type Date Recorded Patient Supervisor Spring Up Expl 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
--- OUTSIDE RECORDS SUMMARY | 2023-06-18 03:09 | External Medical Summary ---
Author Name Unknown Address Unknown Organization K09:[facility] [place] [place] [address] Laboratory Report Ordering Provider Test Date Status VEDA CORDERO 05/18/2021 05:30:00 Final Observation Date Value Abnormality Reference (Units ) Status BUN 05/18/2021 05:30:00 16 6-20 (mg/dL) Final Creatinine 05/18/2021 05:30:00 1.1 Above high normal 0.5-1.0 (mg/dL) Final Glomerular filtration rate/1.73 sq M.predicted [Volume Rate/Area] in Serum, Plasma or Blood by Creatinine-based formula (CKD-EPI) 05/18/2021 05:30:00 46.4 Below low normal >=60.0 (mL/min) Final Performing Location [facility] [place] [address]
--- OUTSIDE RECORDS SUMMARY | 2023-06-18 03:09 | External Medical Summary | Summary of Care ---
Author Name Unknown Organization [place] [address] Care Team Providers Care Utilization Supervisor Name Role Phone Marcela Pinto MD Primary Care Provider + Encounter Details Date Type Department Care Team Description 05/23/2021 Scan Encounter Unspecified Department <No scans attached> Allergies Active Allergy Reactions Severity Noted Date Comments Valsartan 07/10/2010 Enalapril 05/21/2006 Escitalopram Oxalate Nausea/vomiting 10/11/2009 Nauseated Iodinated Diagnostic Agents Nausea/vomiting 05/2010 IV Contrast Iodine Hives 12/18/2009 IV Contrast Metoprolol Tartrate 11/18/2006 Made pulse low [place] Oil-Black Currant-Vit E 07/10/2010 Verapamil 03/21/2004 Bupropion Hcl 10/30/2009 Makes pt sick in the stomach documented as of this encounter (statuses as of 05/25/2021) Medications Medication Sig Dispensed Refills Start Date [...] goal of less than 7.5% ([facility]) Take 2 mg by mouth daily before [...] goal of less than 7.0% ([facility]) Use as directed. USE TO TEST [...] as of this encounter (statuses as of 05/25/2021) Active Problems Problem Noted Date Chronic systolic [...] as of this encounter (statuses as of 05/25/2021) Resolved Problems Problem Noted Date Resolved Date [...] Hypoxemia 10/08/2011 10/30/2015 Genetic Sleep Disorder Research Other*[id number] 07/25/2011 05/15/2016 Diverticulitis of colon 07/25/2011 01/06/20 [...] as of this encounter (statuses as of 05/25/2021) Immunizations Name Administration Dates Next Due COVID-19 [...] Visit Internal Medicine Marcela Pinto MD [address] [facility] [place] [address] [phone] 06/13/2021 Office Visit Cardiology Dulce Merino CRNP [address] [place] [address] [phone] 07/10/2021 Office Visit Internal Medicine Marcela Pinto MD [address] [facility] [place] [address] [phone] 08/08/2021 Nurse Only Ancillary Im, Nurse Annual Wellness [place] [address] [place] [address] [phone] 08/14/2021 Office Visit Internal Medicine Marcela Pinto MD [address] [facility] [place] [address] [phone] Health Maintenance Due Date Last Done Comments Zoster Vaccines (2 of 3) 08/31/2012 07/06/2012 Influenza Vaccine (FLU shot) (#1) 2021 06/22/2020, 06/22/2020, 07/09/2019, Additional history exists DIABETES-HGBA1C EVERY 6 MONTHS 09/09/2021 03/09/2021, 12/05/2020, 08/10/2020, Additional history exists CKD GFR USE SMARTSET 56690 11/21/202105/21, 05/18/2021, 05/12/2021, Additional history exists DIABETES-FOOT EXAM 12/21/2021 12/21/2020, 0 10/19/2019, 01/05/2019, Additional history exists CKD PHOS USE SMARTSET 64904 03/09/2022 03/09/2021, 0 03/22/2019 DIABETES-EYE EXAM 03/26/2022 03/26/2021, , 08/10/2019, Additional history exists CKD HGB USE SMARTSET 10125 05/21/202205/21, 05/18/2021, 05/12/2021, Additional history exists Dexa [...] on File Type Date Recorded Patient Clinical Auditor Expl 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
--- OUTSIDE RECORDS SUMMARY | 2023-06-18 03:09 | External Medical Summary | Summary of Care ---
Author Name Unknown Organization [place] [address] Care Team Providers Care Hearing Aid Repair Technician Name Role Phone Marcela Pinto MD Primary Care Provider + Encounter Details Date Type Department Care Team Description 05/18/2021 Scan Encounter Unspecified Department <No scans attached> Allergies Active Allergy Reactions Severity Noted Date Comments Valsartan 07/10/2010 Enalapril 05/21/2006 Escitalopram Oxalate Nausea/vomiting 10/11/2009 Nauseated Iodinated Diagnostic Agents Nausea/vomiting 05/2010 IV Contrast Iodine Hives 12/18/2009 IV Contrast Metoprolol Tartrate 11/18/2006 Made pulse low [place] Oil-Black Currant-Vit E 07/10/2010 Verapamil 03/21/2004 [...] 7.5% ([facility]) Take 2 mg by mouth daily [...] Hypoxemia 10/08/2011 10/30/2015 Genetic Sleep Disorder Research Other*[id number] 07/25/2011 05/15/2016 Diverticulitis of colon 07/25/2011 01/06/20 [...] Cardiology Dulce Merino CRNP [address] [address] [phone] 07/10/2021 Office Visit Internal Medicine Marcela Pinto MD [address] [facility] [place] [address] [phone] 08/08/2021 Nurse Only Ancillary Im, Nurse Annual Wellness [facility] [address] [facility] [place] [address] [phone] 08/14/2021 Office Visit Internal Medicine Marcela Pinto MD [address] [facility] [address] [facility] [address] [phone] Health Maintenance Due Date Last Done Comments Zoster Vaccines (2 of 3) 08/31/2012 07/06/2012 Influenza Vaccine (FLU shot) (#1) 2021 06/22/2020, 06/22/2020, 07/09/2019, Additional history exists DIABETES-HGBA1C EVERY 6 MONTHS 09/09/2021 03/09/2021, 12/05/2020, 08/10/2020, Additional history exists CKD GFR USE SMARTSET 68651 11/18/202105/18, 05/12/2021, 03/09/2021, Additional history exists DIABETES-FOOT EXAM 12/21/2021 12/21/2020, 0 10/19/2019, 01/05/2019, Additional history exists CKD PHOS USE SMARTSET 08615 03/09/2022 03/09/2021, 0 03/22/2019 DIABETES-EYE EXAM 03/26/2022 03/26/2021, , 08/10/2019, Additional history exists CKD HGB USE SMARTSET 87546 05/18/202205/18, 05/12/2021, 03/09/2021, Additional history exists Dexa [...] Documents on File Type Date Recorded Patient Ham Facer Expl anation Advanced 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
--- OUTSIDE RECORDS SUMMARY | 2023-06-18 03:09 | External Medical Summary | Summary of Care ---
Author Name Unknown Organization [place] [address] Care Team Providers Care Bottom Buffer Name Role Phone Marcela Pinto MD Primary Care Provider + Encounter Details Date Type Department Care Team Description 05/11/2021 Scan Encounter Unspecified Department <No scans attached> Allergies Active Allergy Reactions Severity Noted Date Comments Valsartan 07/10/2010 Enalapril 05/21/2006 Escitalopram Oxalate Nausea/vomiting 10/11/2009 Nauseated Iodinated Diagnostic Agents Nausea/vomiting 05/2010 IV Contrast Iodine Hives 12/18/2009 IV Contrast Metoprolol Tartrate 11/18/2006 Made pulse low [place] Oil-Black Currant-Vit E 07/10/2010 Verapamil 03/21/2004 Bupropion [...] of less than 7.5% ([facility]) Take 2 mg by mouth [...] Hypoxemia 10/08/2011 10/30/2015 Genetic Sleep Disorder Research Other*[id number] 07/25/2011 05/15/2016 Diverticulitis of colon 07/25/2011 01/06/20 [...] Cardiology Dulce Merino CRNP [address] [address] [phone] 07/10/2021 Office Visit Internal Medicine Marcela Pinto MD 200 [facility] [place] [address] [phone] 08/08/2021 Nurse Only Ancillary Im, Nurse Annual Wellness [facility] [address] [facility] [place] [address] [phone] 08/14/2021 Office Visit Internal Medicine Marcela Pinto MD [address] [facility] [address] [facility] [address] [phone] Health Maintenance Due Date Last Done Comments Zoster Vaccines (2 of 3) 08/31/2012 07/06/2012 Influenza Vaccine (FLU shot) (#1) 2021 06/22/2020, 06/22/2020, 07/09/2019, Additional history exists DIABETES-HGBA1C EVERY 6 MONTHS 09/09/2021 03/09/2021, 12/05/2020, 08/10/2020, Additional history exists CKD GFR USE SMARTSET 37845 11/12/202105/12, 03/09/2021, 03/05/2021, Additional history exists DIABETES-FOOT EXAM 12/21/2021 12/21/2020, 0 10/19/2019, 01/05/2019, Additional history exists CKD PHOS USE SMARTSET 76740 03/09/2022 03/09/2021, 0 03/22/2019 DIABETES-EYE EXAM 03/26/2022 03/26/2021, , 08/10/2019, Additional history exists CKD HGB USE SMARTSET 39994 05/12/202205/12, 03/09/2021, 03/09/2021, Additional history exists Dexa [...] Documents on File 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
--- OUTSIDE RECORDS SUMMARY | 2023-06-18 03:09 | External Medical Summary ---
Author Name Unknown Address Unknown Organization K09:[facility] [place] [address] Laboratory Report Ordering Provider Test Date Status VEDA CORDERO 05/18/2021 05:30:00 Final Observation Date Value Abnormality Reference (Units ) Status WBC, Total 05/18/2021 05:30:00 11.77 Above high normal 4 .00-10.80 (K/uL) Final RBC 05/18/2021 05:30:00 3.69 Below low normal 3.8 5-5.15 (M/uL) Final Hemoglobin 05/18/2021 05:30:00 10.6 Below low normal 12 .0-15.3 (g/dL) Final HCT 05/18/2021 05:30:00 34.5 Below low normal 36. 0-45.2 (%) Final MCV 05/18/2021 05:30:00 93.5 81.5-97.5 (fL) Final MCH 05/18/2021 05:30:00 28.7 27.0-34.0 (pg) Final MCHC 05/18/2021 05:30:00 30.7 Below low normal 32. 0-36.0 (g/dL) Final RDW 05/18/2021 05:30:00 15.0 11.5-15.5 (%) Final Platelets 05/18/2021 05:30:00 337 140-400 (K /uL) Final MPV 05/18/2021 05:30:00 10.4 6.6-11.1 ( fL) Final Performing Location [facility] [place] [address]
--- OUTSIDE RECORDS SUMMARY | 2023-06-18 03:10 | External Medical Summary | Summary of Care ---
Author Name Unknown Organization [place] [address] Care Team Providers Care Supervisor Phosphorus Processing Name Role Phone Marcela Pinto MD Primary Care Provider + Encounter Details Date Type Department Care Team Description 05/10/2021 Orders Only Acute Care Treatment [address] [address] Layne Aguilera MD [address] [facility] [place] [address] Allergies Active Allergy Reactions Severity Noted Date Comments Valsartan 07/10/2010 Enalapril 05/21/2006 Escitalopram Oxalate Nausea/vomiting 10/11/2009 Nauseated Iodinated Diagnostic Agents Nausea/vomiting 05/2010 IV Contrast Iodine Hives 12/18/2009 IV Contrast Metoprolol Tartrate 11/18/2006 Made pulse low [place] Oil-Black Currant-Vit E 07/10/2010 Verapamil 03/21/2004 Bupropion Hcl 10/30/2009 Makes pt sick in the stomach documented as of this encounter (statuses as of 05/11/2021) Medications Medication Sig Dispensed Refills Start Date [...] as of this encounter (statuses as of 05/11/2021) Active Problems Problem Noted Date Chronic systolic [...] as of this encounter (statuses as of 05/11/2021) Resolved Problems Problem Noted Date Resolved Date [...] Hypoxemia 10/08/2011 10/30/2015 Genetic Sleep Disorder Research Other*[id number] 07/25/2011 05/15/2016 Diverticulitis of colon 07/25/2011 01/06/20 [...] as of this encounter (statuses as of 05/11/2021) Immunizations Name Administration Dates Next Due COVID-19 mRNA, LNP-s, No Pre serve, 2-Dose Series ([employer]) 12/22/2020,2020 Hepatitis B, 20+ yrs 10/01/2017,04/21/2017,03/20 Pneumococcal [...] Dulce Merino CRNP [address] [place] [address] [phone] 07/10/2021 Office Visit Internal Medicine Marcela Pinto MD [address] [facility] [address] [facility] [address] [phone] 08/08/2021 Nurse Only Ancillary Im, Nurse Annual Wellness [place] [address] [facility] [place] [address] [phone] 08/14/2021 Office Visit Internal Medicine Marcela Pinto MD [address] [facility] [place] [address] [phone] Health Maintenance Due Date Last Done Comments Zoster Vaccines (2 of 3) 08/31/2012 07/06/2012 Influenza Vaccine (FLU shot) (#1) 2021 06/22/2020, 06/22/2020, 07/09/2019, Additional history exists CKD GFR USE SMARTSET 41391 09/09/202103/09, 03/05/2021, 01/24/2021, Additional history exists DIABETES-HGBA1C EVERY 6 MONTHS 09/09/2021 03/09/2021, 12/05/2020, 08/10/2020, Additional history exists DIABETES-FOOT EXAM 12/21/2021 12/21/2020, 0 10/19/2019, 01/05/2019, Additional history exists CKD HGB USE SMARTSET 30613 03/09/202203/09, 03/09/2021, 01/24/2021, Additional history exists CKD PHOS USE SMARTSET 92489 03/09/2022 03/09/2021, 0 03/22/2019 DIABETES-EYE EXAM 03/26/2022 [...] - CT (IMAGES ONLY, NO REPORT) Routine 05/10/2021 9:00 AM EDT documented in this encounter Results * RADIOLOGY EXAM - CT (IMAGES ONLY, NO REPORT) (05/10/2021 9:00 AM EDT) Specimen Narrative Performed At This is an imaging study not interpreted or resulted by a [facility] or [facility] contracted radiologist. 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
--- OUTSIDE RECORDS SUMMARY | 2023-06-18 03:10 | External Medical Summary | Summary of Care ---
Author Name Unknown Organization [place] [address] Care Team Providers Care Oil Operator Name Role Phone Marcela Pinto MD Primary Care Provider + Encounter Details Date Type Department Care Team Description 05/05/2021 Scan Encounter Unspecified Department <No scans attached> Allergies Active Allergy Reactions Severity Noted Date Comments Valsartan 07/10/2010 Enalapril 05/21/2006 Escitalopram Oxalate Nausea/vomiting 10/11/2009 Nauseated Iodinated Diagnostic Agents Nausea/vomiting 05/2010 IV Contrast Iodine Hives 12/18/2009 IV Contrast Metoprolol Tartrate 11/18/2006 Made pulse low [place] Oil-Black Currant-Vit E 07/10/2010 Verapamil 03/21/2004 Bupropion Hcl 10/30/2009 Makes pt sick in the stomach documented as of this encounter (statuses as of 05/07/2021) Medications Medication Sig Dispensed Refills Start Date [...] hemoglobin A1c goal of less than 7.5% ([facility]) Take 2 mg by mouth daily [...] as of this encounter (statuses as of 05/07/2021) Active Problems Problem Noted Date Chronic systolic [...] as of this encounter (statuses as of 05/07/2021) Resolved Problems Problem Noted Date Resolved Date [...] Hypoxemia 10/08/2011 10/30/2015 Genetic Sleep Disorder Research Other*[id number] 07/25/2011 05/15/2016 Diverticulitis of colon 07/25/2011 01/06/20 [...] as of this encounter (statuses as of 05/07/2021) Immunizations Name Administration Dates Next Due COVID-19 [...] Cardiology Dulce Merino CRNP [address] [address] [phone] 07/10/2021 Office Visit Internal Medicine Marcela Pinto MD 200 [facility] [place] [address] [phone] 08/08/2021 Nurse Only Ancillary Im, Nurse Annual Wellness [facility] [address] [facility] [place] [address] [phone] 08/14/2021 Office Visit Internal Medicine Marcela Pinto MD [address] [facility] [place] [address] [phone] Health Maintenance Due Date Last Done Comments Zoster Vaccines (2 of 3) 08/31/2012 07/06/2012 Influenza Vaccine (FLU shot) (#1) 2021 06/22/2020, 06/22/2020, 07/09/2019, Additional history exists CKD GFR USE SMARTSET 33989 09/09/202103/09, 03/05/2021, 01/24/2021, Additional history exists DIABETES-HGBA1C EVERY 6 MONTHS 09/09/2021 03/09/2021, 12/05/2020, 08/10/2020, Additional history exists DIABETES-FOOT EXAM 12/21/2021 12/21/2020, 0 10/19/2019, 01/05/2019, Additional history exists CKD HGB USE SMARTSET 24489 03/09/202203/09, 03/09/2021, 01/24/2021, Additional history exists CKD PHOS USE SMARTSET 27701 03/09/2022 03/09/2021, 0 03/22/2019 DIABETES-EYE EXAM 03/26/2022 [...] Documents on File Type Date 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
--- OUTSIDE RECORDS SUMMARY | 2023-06-18 03:10 | External Medical Summary | Summary of Care ---
Author Name Unknown Organization [place] [address] Care Team Providers Care Diabetes Specialist Name Role Phone Marcela Pinto MD Primary Care Provider + Encounter Details Date Type Department Care Team Description 04/25/2021 Scan Encounter Unspecified Department <No scans attached> Allergies Active Allergy Reactions Severity Noted Date Comments Valsartan 07/10/2010 Enalapril 05/21/2006 Escitalopram Oxalate Nausea/vomiting 10/11/2009 Nauseated Iodinated Diagnostic Agents Nausea/vomiting 05/2010 IV Contrast Iodine Hives 12/18/2009 IV Contrast Metoprolol Tartrate 11/18/2006 Made pulse low [place] Oil-Black Currant-Vit E 07/10/2010 Verapamil 03/21/2004 Bupropion Hcl 10/30/2009 Makes pt sick in the stomach documented as of this encounter (statuses as of 04/27/2021) Medications Medication Sig Dispensed Refills Start Date [...] goal of less than 7.5% ([facility]) Take 2 mg by mouth daily [...] as of this encounter (statuses as of 04/27/2021) Active Problems Problem Noted Date Chronic systolic [...] as of this encounter (statuses as of 04/27/2021) Resolved Problems Problem Noted Date Resolved Date [...] Hypoxemia 10/08/2011 10/30/2015 Genetic Sleep Disorder Research Other*[id number] 07/25/2011 05/15/2016 Diverticulitis of colon 07/25/2011 01/06/20 19 COPD, moderate 07/19/2011 07/28/2019 Overview: Dr Bhatit every 6 months Obesity, morbid (more than [...] as of this encounter (statuses as of 04/27/2021) Immunizations Name Administration Dates Next Due COVID-19 [...] Cardiology Dulce Merino CRNP [address] [address] [phone] 07/10/2021 Office Visit Internal Medicine Marcela Pinto MD 200 [facility] [place] [address] [phone] 08/08/2021 Nurse Only Ancillary Im, Nurse Annual Wellness [facility] [address] [facility] [place] [address] [phone] 08/14/2021 Office Visit Internal Medicine Marcela Pinto MD [address] [facility] [place] [address] [phone] Health Maintenance Due Date Last Done Comments Zoster Vaccines (2 of 3) 08/31/2012 07/06/2012 Influenza Vaccine (FLU shot) (#1) 2021 06/22/2020, 06/22/2020, 07/09/2019, Additional history exists CKD GFR USE SMARTSET 82881 09/09/202103/09, 03/05/2021, 01/24/2021, Additional history exists DIABETES-HGBA1C EVERY 6 MONTHS 09/09/2021 03/09/2021, 12/05/2020, 08/10/2020, Additional history exists DIABETES-FOOT EXAM 12/21/2021 12/21/2020, 0 10/19/2019, 01/05/2019, Additional history exists CKD HGB USE SMARTSET 00218 03/09/202203/09, 03/09/2021, 01/24/2021, Additional history exists CKD PHOS USE SMARTSET 31488 03/09/2022 03/09/2021, 0 03/22/2019 DIABETES-EYE EXAM 03/26/2022 [...] Documents on File Type Date Recorded 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
--- OUTSIDE RECORDS SUMMARY | 2023-06-18 03:10 | External Medical Summary | Summary of Care ---
Author Name Unknown Organization [place] [address] Care Team Providers Care Personnel Consultant Name Role Phone Marcela Pinto MD Primary Care Provider + Encounter Details Date Type Department Care Team Description 05/07/2021 Scan Encounter Unspecified Department <No scans attached> Allergies Active Allergy Reactions Severity Noted Date Comments Valsartan 07/10/2010 Enalapril 05/21/2006 Escitalopram Oxalate Nausea/vomiting 10/11/2009 Nauseated Iodinated Diagnostic Agents Nausea/vomiting 05/2010 IV Contrast Iodine Hives 12/18/2009 IV Contrast Metoprolol Tartrate 11/18/2006 Made pulse low [place] Oil-Black Currant-Vit E 07/10/2010 Verapamil 03/21/2004 Bupropion [...] hemoglobin A1c goal of less than 7.0% ([facility]) Use as directed. USE TO [...] Hypoxemia 10/08/2011 10/30/2015 Genetic Sleep Disorder Research Other*[id number] 07/25/2011 05/15/2016 Diverticulitis of colon 07/25/2011 01/06/20 [...] Cardiology Dulce Merino CRNP [address] [address] [phone] 07/10/2021 Office Visit Internal Medicine Marcela Pinto MD [address] [facility] [place] [address] [phone] 08/08/2021 Nurse Only Ancillary Im, Nurse Annual Wellness [facility] [address] [facility] [place] [address] [phone] 08/14/2021 Office Visit Internal Medicine Marcela Pinto MD [address] [facility] [place] [address] [phone] Health Maintenance Due Date Last Done Comments Zoster Vaccines (2 of 3) 08/31/2012 07/06/2012 Influenza Vaccine (FLU shot) (#1) 2021 06/22/2020, 06/22/2020, 07/09/2019, Additional history exists CKD GFR USE SMARTSET 77851 09/09/202103/09, 03/05/2021, 01/24/2021, Additional history exists DIABETES-HGBA1C EVERY 6 MONTHS 09/09/2021 03/09/2021, 12/05/2020, 08/10/2020, Additional history exists DIABETES-FOOT EXAM 12/21/2021 12/21/2020, 0 10/19/2019, 01/05/2019, Additional history exists CKD HGB USE SMARTSET 68071 03/09/202203/09, 03/09/2021, 01/24/2021, Additional history exists CKD PHOS USE SMARTSET 94463 03/09/2022 03/09/2021, 0 03/22/2019 DIABETES-EYE EXAM 03/26/2022 [...] Documents on File Type Date Recorded 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
--- OUTSIDE RECORDS SUMMARY | 2023-06-18 03:10 | External Medical Summary | Summary of Care ---
Author Name Unknown Organization [place] [address] Care Team Providers Care Archaeology Professor Name Role Phone Marcela Pinto MD Primary Care Provider + Encounter Details Date Type Department Care Team Description 05/05/2021 Scan Encounter Unspecified Department <No scans attached> Allergies Active Allergy Reactions Severity Noted Date Comments Valsartan 07/10/2010 Enalapril 05/21/2006 Escitalopram Oxalate Nausea/vomiting 10/11/2009 Nauseated Iodinated Diagnostic Agents Nausea/vomiting 05/2010 IV Contrast Iodine Hives 12/18/2009 IV Contrast Metoprolol Tartrate 11/18/2006 Made pulse low [place] Oil-Black Currant-Vit E 07/10/2010 Verapamil 03/21/2004 Bupropion [...] 7.5% ([facility]) Take 2 mg by mouth daily [...] Hypoxemia 10/08/2011 10/30/2015 Genetic Sleep Disorder Research Other*[id number] 07/25/2011 05/15/2016 Diverticulitis of colon 07/25/2011 01/06/20 [...] Cardiology Dulce Merino CRNP [address] [address] [phone] 07/10/2021 Office Visit Internal Medicine Marcela Pinto MD 200 [facility] [place] [address] [phone] 08/08/2021 Nurse Only Ancillary Im, Nurse Annual Wellness [facility] [address] [facility] [place] [address] [phone] 08/14/2021 Office Visit Internal Medicine Marcela Pinto MD [address] [facility] [place] [address] [phone] Health Maintenance Due Date Last Done Comments Zoster Vaccines (2 of 3) 08/31/2012 07/06/2012 Influenza Vaccine (FLU shot) (#1) 2021 06/22/2020, 06/22/2020, 07/09/2019, Additional history exists CKD GFR USE SMARTSET 94933 09/09/202103/09, 03/05/2021, 01/24/2021, Additional history exists DIABETES-HGBA1C EVERY 6 MONTHS 09/09/2021 03/09/2021, 12/05/2020, 08/10/2020, Additional history exists DIABETES-FOOT EXAM 12/21/2021 12/21/2020, 0 10/19/2019, 01/05/2019, Additional history exists CKD HGB USE SMARTSET 57201 03/09/202203/09, 03/09/2021, 01/24/2021, Additional history exists CKD PHOS USE SMARTSET 93686 03/09/2022 03/09/2021, 0 03/22/2019 DIABETES-EYE EXAM 03/26/2022 [...] Documents on File 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
--- OUTSIDE RECORDS SUMMARY | 2023-06-18 03:10 | External Medical Summary ---
Author Name Unknown Address Unknown Organization K01:[facility] - [facility] [address] [place] [address] Laboratory Report Ordering Provider Test Date Status JOSE A JOHNSON 04/24/2021 13:21:06 Final Observation Date Value Abnormality Reference (Units ) Status METHODOLOGY 04/24/2021 13:21:06 Final Codeine 04/24/2021 13:21:06 Negative Negative Final Morphine, Urine confirmatory 04/24/2021 13:21:06 Negative Negative Final Hydrocodone cutoff [Mass/volume] in Urine for Confirmatory method 04/24/2021 13:21:06 456 Above high normal Negative (ng/mL) Final HYDROmorphone [Mass/volume] in Urine 04/24/2021 13:21:06 Negative Negative Final Dihydrocodeine [Mass/volume] in Urine by Confirmatory method 04/24/2021 13:21:06 316 Above high normal Negative (ng/mL) Final oxyCODONE [Presence] in Urine by Screen method 04/24/2021 13:21:06 Negative Negative Final oxyMORphone cutoff [Mass/volume] in Urine for Confirmatory method 04/24/2021 13:21:06 Negative Negative Final Performing Location [facility] [address] [place] [address]
--- OUTSIDE RECORDS SUMMARY | 2023-06-18 03:10 | External Medical Summary ---
Author Name Unknown Address Unknown Organization K0G:[facility] [address] [place] [address] Laboratory Report Ordering Provider Test Date Status LONNIE PERSON 05/12/2021 05:30:00 Final Observation Date Value Abnormality Reference (Units ) Status BUN 05/12/2021 05:30:00 10 6-20 (mg/dL) Final Creatinine 05/12/2021 05:30:00 1.3 Above high normal 0.5-1.0 (mg/dL) Final Glomerular filtration rate/1.73 sq M.predicted [Volume Rate/Area] in Serum, Plasma or Blood by Creatinine-based formula (CKD-EPI) 05/12/2021 05:30:00 37.3 Below low normal >=60.0 (mL/min) Final Performing Location [facility] [address] [place] [address]
--- OUTSIDE RECORDS SUMMARY | 2023-06-18 03:10 | External Medical Summary ---
Author Name Unknown Address Unknown Organization K01:LAB[facility]ATORY [facility] - [address] [place] [address] Laboratory Report Ordering Provider Test Date Status ALEXJOSE A 04/24/2021 13:21:06 Final Observation Date Value Abnormality Reference (Units) Status COMPLIANCE INTERPRETATION 04/24/2021 13:21:06 Based on the medication information provided: Final COMPLIANCE INTERPRETATION 04/24/2021 13:21:06 The presence of hydrocodone and dihydrocodeine is CONSISTENT with current hydrocodone use. Final Performing Location [facility] - [address] [place] [address]
--- OUTSIDE RECORDS SUMMARY | 2023-06-18 03:10 | External Medical Summary | Summary of Care ---
Author Name Unknown Organization [place] [address] Care Team Providers Care Swahili Teacher Name Role Phone Marcela Pinto MD Primary Care Provider + Encounter Details Date Type Department Care Team Description 05/05/2021 Scan Encounter Unspecified Department <No scans attached> Allergies Active Allergy Reactions Severity Noted Date Comments Valsartan 07/10/2010 Enalapril 05/21/2006 Escitalopram Oxalate Nausea/vomiting 10/11/2009 Nauseated Iodinated Diagnostic Agents Nausea/vomiting 05/2010 IV Contrast Iodine Hives 12/18/2009 IV Contrast Metoprolol Tartrate 11/18/2006 Made pulse low [place] Oil-Black Currant-Vit E 07/10/2010 Verapamil 03/21/2004 Bupropion [...] goal of less than 7.5% ([facility]) Take 2 mg by mouth daily before [...] goal of less than 7.0% ([facility]) Use as directed. USE TO TEST BLOOD [...] Hypoxemia 10/08/2011 10/30/2015 Genetic Sleep Disorder Research Other*[id number] 07/25/2011 05/15/2016 Diverticulitis of colon 07/25/2011 01/06/20 [...] Cardiology Dulce Merino CRNP [address] [address] [phone] 07/10/2021 Office Visit Internal Medicine Marcela Pinto MD [address] [facility] [place] [address] [phone] 08/08/2021 Nurse Only Ancillary Im, Nurse Annual Wellness [facility] [address] [facility] [place] [address] [phone] 08/14/2021 Office Visit Internal Medicine Marcela Pinto MD [address] [facility] [place] [address] [phone] Health Maintenance Due Date Last Done Comments Zoster Vaccines (2 of 3) 08/31/2012 07/06/2012 Influenza Vaccine (FLU shot) (#1) 2021 06/22/2020, 06/22/2020, 07/09/2019, Additional history exists CKD GFR USE SMARTSET 44231 09/09/202103/09, 03/05/2021, 01/24/2021, Additional history exists DIABETES-HGBA1C EVERY 6 MONTHS 09/09/2021 03/09/2021, 12/05/2020, 08/10/2020, Additional history exists DIABETES-FOOT EXAM 12/21/2021 12/21/2020, 0 10/19/2019, 01/05/2019, Additional history exists CKD HGB USE SMARTSET 57662 03/09/202203/09, 03/09/2021, 01/24/2021, Additional history exists CKD PHOS USE SMARTSET 00802 03/09/2022 03/09/2021, 0 03/22/2019 DIABETES-EYE EXAM 03/26/2022 [...] Documents on File Type Date Recorded 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
--- OUTSIDE RECORDS SUMMARY | 2023-06-18 03:10 | External Medical Summary | Summary of Care ---
Author Name Unknown Organization [place] [address] Care Team Providers Care Neurourologist Name Role Phone Marcela Pinto MD Primary Care Provider + Encounter Details Date Type Department Care Team Description 05/05/2021 Orders Only Acute Care Treatment Area[address] [address] Layne Aguilera MD [address] 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 07/25/2011 05/15/2016 Diverticulitis of colon 07/25/2011 01/06/20 [...] mRNA, LNP-s, No Pre serve, 2-Dose Series ([employer]) 12/22/2020,2020 Hepatitis B, 20+ yrs 10/01/2017,04/21/2017,03/20 Pneumococcal [...] Dulce Merino CRNP [address] [place] [address] [phone] 07/10/2021 Office Visit Internal Medicine Marcela Pinto MD [address] [facility] [address] [facility] [address] [phone] 08/08/2021 Nurse Only Ancillary Im, Nurse Annual Wellness [place] [address] [facility] [place] [address] [phone] 08/14/2021 Office Visit Internal Medicine Marcela Pinto MD [address] [facility] [place] [address] [phone] Health Maintenance Due Date Last Done Comments Zoster Vaccines (2 of 3) 08/31/2012 07/06/2012 Influenza Vaccine (FLU shot) (#1) 2021 06/22/2020, 06/22/2020, 07/09/2019, Additional history exists CKD GFR USE SMARTSET 39591 09/09/202103/09, 03/05/2021, 01/24/2021, Additional history exists DIABETES-HGBA1C EVERY 6 MONTHS 09/09/2021 03/09/2021, 12/05/2020, 08/10/2020, Additional history exists DIABETES-FOOT EXAM 12/21/2021 12/21/2020, 0 10/19/2019, 01/05/2019, Additional history exists CKD HGB USE SMARTSET 56616 03/09/202203/09, 03/09/2021, 01/24/2021, Additional history exists CKD PHOS USE SMARTSET 76950 03/09/2022 03/09/2021, 0 03/22/2019 DIABETES-EYE EXAM 03/26/2022 [...] - CT (IMAGES ONLY, NO REPORT) Routine 05/05/2021 4:35 PM EDT documented in this encounter Results * RADIOLOGY EXAM - CT (IMAGES ONLY, NO REPORT) (05/05/2021 4:35 PM EDT) Specimen Narrative Performed At This is an imaging study not interpreted or resulted by a [facility] or [email or web address] contracted radiologist. 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
--- OUTSIDE RECORDS SUMMARY | 2023-06-18 03:10 | External Medical Summary | Summary of Care ---
Author Name Unknown Organization [place] [address] Care Team Providers Care Bi Consultant Name Role Phone Marcela Pinto MD Primary Care Provider + Encounter Details Date Type Department Care Team Description 05/12/2021 Orders Only Lab Mobile Phlebotomy [facility] [address] [place] [address] Pablo Sullivan MD [address] [place] [id number] Routine medical exam* Allergies Active Allergy Reactions Severity Noted Date Comments Valsartan 07/10/2010 Enalapril 05/21/2006 Escitalopram Oxalate Nausea/vomiting 10/11/2009 Nauseated Iodinated Diagnostic Agents Nausea/vomiting 05/2010 IV Contrast Iodine Hives 12/18/2009 IV Contrast Metoprolol Tartrate 11/18/2006 Made pulse low [place] Oil-Black Currant-Vit E 07/10/2010 Verapamil 03/21/2004 Bupropion Hcl 10/30/2009 Makes pt sick in the stomach documented as of this encounter (statuses as of 05/12/2021) Medications Medication Sig Dispensed Refills Start Date [...] hemoglobin A1c goal of less than 7.0% ([facility]) Use as directed. USE TO [...] l)Indications:Asthma with severity to be determined,COPD, moderate ([facility]) TAKE 1 PUFF BY MOUTH [...] as of this encounter (statuses as of 05/12/2021) Active Problems Problem Noted Date Chronic systolic [...] mean 85%, <89% 6:18 hrs, SROEN 18.7 AHP Sleep apnea, obstructive 10/02/2011 Overview: 4 LPM qhs 09/27/11 2 LPM -- low 45%, mean 85%, <89% 6:18 hrs, SOREN 18.7 Refusing CPAP AHP Allergic rhinitis 07/19/2011 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 Asthma with severity to be determined Generalized osteoarthritis documented as of this encounter (statuses as of 05/12/2021) Resolved Problems Problem Noted Date Resolved Date [...] Hypoxemia 10/08/2011 10/30/2015 Genetic Sleep Disorder Research Other*[id number] 07/25/2011 05/15/2016 Diverticulitis of colon 07/25/2011 01/06/20 [...] Overview: Per Obesity Taxonomy EDEMA dependent, ankles 03/26/20 19 Mixed dyslipidemia 09/19/2009 Overview: Per Lipid Taxonomy. ACEI/ARB contraindicated 021 documented as of this encounter (statuses as of 05/12/2021) Immunizations Name Administration Dates Next Due COVID-19 mRNA, LNP-s, No Pre serve, 2-Dose Series ([employer]) 12/22/2020,2020 Hepatitis B, 20+ yrs 10/01/2017,04/21/2017,03/20 Pneumococcal [...] Visit Cardiology Dulce Merino CRNP [address] [place] [address] [phone] 07/10/2021 Office Visit Internal Medicine Marcela Pinto MD [address] [place] [address] [phone] 08/08/2021 Nurse Only Ancillary Im, Nurse Annual Wellness [place] [address] [place] [address] [phone] 08/14/2021 Office Visit Internal Medicine Marcela Pinto MD [address] [place] [address] [phone] Pending Results Name Type Priority Associated Diagnoses Date /Time BASIC METABOLIC PANEL Lab Routine Routine medical exam 05/12/2021 5:30 AM EDT CBC Lab Routine Routine medical exam 05/12/2021 5:30 AM EDT Scheduled Orders Name Type Priority Associated Diagnoses Orde r Schedule BASIC METABOLIC PANEL Lab Routine Routine medical exam Expected: 05/12/2021, Expires: 05/12/2022 CBC Lab Routine Routine medical exam Expected: 05/12/2021, Expires: 05/12/2022 Health Maintenance Due Date Last Done Comments Zoster Vaccines (2 of 3) 08/31/2012 07/06/2012 Influenza Vaccine (FLU shot) (#1) 2021 06/22/2020, 06/22/2020, 07/09/2019, Additional history exists CKD GFR USE SMARTSET 45351 09/09/202103/09, 03/05/2021, 01/24/2021, Additional history exists DIABETES-HGBA1C EVERY 6 MONTHS 09/09/2021 03/09/2021, 12/05/2020, 08/10/2020, Additional history exists DIABETES-FOOT EXAM 12/21/2021 12/21/2020, 0 10/19/2019, 01/05/2019, Additional history exists CKD HGB USE SMARTSET 82895 03/09/202203/09, 03/09/2021, 01/24/2021, Additional history exists CKD PHOS USE SMARTSET 60403 03/09/2022 03/09/2021, 0 03/22/2019 DIABETES-EYE EXAM 03/26/2022 [...] Documents on File Type Date 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
--- OUTSIDE RECORDS SUMMARY | 2023-06-18 03:10 | External Medical Summary | Summary of Care ---
Author Name Unknown Organization [place] [address] Care Team Providers Care Gis Scientist Name Role Phone Marcela Pinto MD Primary Care Provider + Encounter Details Date Type Department Care Team Description 04/27/2021 Scan Encounter Unspecified Department <No scans attached> Allergies Active Allergy Reactions Severity Noted Date Comments Valsartan 07/10/2010 Enalapril 05/21/2006 Escitalopram Oxalate Nausea/vomiting 10/11/2009 Nauseated Iodinated Diagnostic Agents Nausea/vomiting 05/2010 IV Contrast Iodine Hives 12/18/2009 IV Contrast Metoprolol Tartrate 11/18/2006 Made pulse low [place] Oil-Black Currant-Vit E 07/10/2010 Verapamil 03/21/2004 Bupropion Hcl 10/30/2009 Makes pt sick in the stomach documented as of this encounter (statuses as of 05/02/2021) Medications Medication Sig Dispensed Refills Start Date [...] less than 7.5% ([facility]) Take 2 mg by mouth [...] as of this encounter (statuses as of 05/02/2021) Active Problems Problem Noted Date Chronic systolic [...] as of this encounter (statuses as of 05/02/2021) Resolved Problems Problem Noted Date Resolved Date [...] Hypoxemia 10/08/2011 10/30/2015 Genetic Sleep Disorder Research Other*[id number] 07/25/2011 05/15/2016 Diverticulitis of colon 07/25/2011 01/06/20 [...] as of this encounter (statuses as of 05/02/2021) Immunizations Name Administration Dates Next Due COVID-19 [...] Cardiology Dulce Merino CRNP [address] [address] [phone] 07/10/2021 Office Visit Internal Medicine Marcela Pinto MD [address] [facility] [place] [address] [phone] 08/08/2021 Nurse Only Ancillary Im, Nurse Annual Wellness [facility] [address] [facility] [place] [address] [phone] 08/14/2021 Office Visit Internal Medicine Marcela Pinto MD [address] [facility] [place] [address] [phone] Health Maintenance Due Date Last Done Comments Zoster Vaccines (2 of 3) 08/31/2012 07/06/2012 Influenza Vaccine (FLU shot) (#1) 2021 06/22/2020, 06/22/2020, 07/09/2019, Additional history exists CKD GFR USE SMARTSET 39715 09/09/202103/09, 03/05/2021, 01/24/2021, Additional history exists DIABETES-HGBA1C EVERY 6 MONTHS 09/09/2021 03/09/2021, 12/05/2020, 08/10/2020, Additional history exists DIABETES-FOOT EXAM 12/21/2021 12/21/2020, 0 10/19/2019, 01/05/2019, Additional history exists CKD HGB USE SMARTSET 18106 03/09/202203/09, 03/09/2021, 01/24/2021, Additional history exists CKD PHOS USE SMARTSET 40075 03/09/2022 03/09/2021, 0 03/22/2019 DIABETES-EYE EXAM 03/26/2022 [...] Documents on File Type Date Recorded 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
--- OUTSIDE RECORDS SUMMARY | 2023-06-18 03:10 | External Medical Summary ---
Author Name Unknown Address Unknown Organization [id number] [address] [place] [address] Laboratory Report Ordering Provider Test Date Status LONNIE PERSON 05/12/2021 05:30:00 Final Observation Date Value Abnormality Reference (Units ) Status WBC, Total 05/12/2021 05:30:00 10.02 4.00-10.8 0 (K/uL) Final RBC 05/12/2021 05:30:00 3.92 3.85-5.15 (M/uL) Final Hemoglobin 05/12/2021 05:30:00 11.1 Below low normal 12 .0-15.3 (g/dL) Final HCT 05/12/2021 05:30:00 36.7 36.0-45.2 (%) Final MCV 05/12/2021 05:30:00 93.6 81.5-97.5 (fL) Final MCH 05/12/2021 05:30:00 28.3 27.0-34.0 (pg) Final MCHC 05/12/2021 05:30:00 30.2 Below low normal 32. 0-36.0 (g/dL) Final RDW 05/12/2021 05:30:00 14.6 11.5-15.5 (%) Final Platelets 05/12/2021 05:30:00 387 140-400 (K /uL) Final MPV 05/12/2021 05:30:00 9.8 6.6-11.1 ( fL) Final Performing Location [facility] [address] [place] [address]
--- OUTSIDE RECORDS SUMMARY | 2023-06-18 03:11 | External Medical Summary | Summary of Care ---
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 Name Role Phone Marcela Pinto MD Primary Care Provider + Reason for Visit * Reason Comments Follow Up Encounter Details Date Type Department Care Team Description 04/03/2021 Office Visit General Internal Medicine [facility] [address] [facility] [place] [id number] Marcela Pinto MD [address] [place] [address] [phone] Controlled substance agreement signed*; Risk and functional assessment; GENERAL OSTEOARTHROSIS ; Type 2 diabetes mellitus with hemoglobin A1c goal of less than 7.5% (HCC); Chronic hypoxemic respiratory failure (HCC); Hyperlipidemia with target LDL less than 100; Asthma with severity to be determined; Nocturnal hypoxia; Sleep apnea, obstructive; HTN, goal below 140/90; Ischemic colitis (HCC); Gastro-esophageal reflux disease without esophagitis; HECTOR (generalized anxiety disorder); Hyperthyroidism; Dysuria Allergies Active Allergy Reactions Severity Noted Date Comments Valsartan 07/10/2010 Enalapril 05/21/2006 Escitalopram Oxalate Nausea/vomiting 10/11/2009 Nauseated Iodinated Diagnostic Agents Nausea/vomiting 05/2010 IV Contrast Iodine Hives 12/18/2009 IV Contrast Metoprolol Tartrate 11/18/2006 Made pulse low [place] Oil-Black Currant-Vit E 07/10/2010 Verapamil 03/21/2004 Bupropion Hcl 10/30/2009 Makes pt sick in the stomach documented as of this encounter (statuses as of 04/22/2021) Medications Medication Sig Dispensed Refills Start Date [...] Information Patient taking differently: 17 g Oral DAILY, One cap full in juice, to effect 1 stool per day. ., Reported on 12/30/2019 Multiple Vitamins-Minerals (ONE DAILY MULTIVITAMIN WOMEN) TABS one pill each day 0 7 Active [facility] SENNA 8.6 MG Tablet TAKE 2 TABLETS BY MOUTH EVERY EVENING FOR 10 DAYS NEEDED FOR CONSTIPATION 0 8 Active Nebulizers (NEBULIZER COMPRESSOR) [facility] Inhale via nebulizer. Use as directed. Please [...] 0 Active Zafirlukast 20 MG Oral Tablet (ACCOLATE)Indicati ons:Asthma with severity to be determined TAKE 1 TABLET BY MOUTH EVERY DAY 90 Tab 3 0 Active Combivent Respimat 20-100 MCG/ACT Inhalation [...] EVERY DAY 90 Tab 2 1 Active Atorvastatin Calcium 40 MG Oral Tablet (Lipitor)Indicatio ns:Hyperlipidemia with target LDL less than 100 TAKE 1 TABLET BY MOUTH EVERY DAY 90 Tab 1 1 Active HYDROcodone-Acetam inophen 5-325 MG Oral TabletIndications: Generalized osteoarthritis Take 1 Tab by mouth every 6 hours as needed for Pain, Mild. 120 Tab 0 1 Active Furosemide 40 MG Oral Tablet (Lasix)Indications :Chronic systolic heart failure (HCC) 80 mg in AM, 40 mg in PM 270 Tab 1 1 Active Spironolactone 25 MG Oral Tablet (Aldactone)Indicat ions:Chronic systolic heart failure (HCC) Take 0.5 Tabs by mouth daily. 30 Tab 3 1 Active Carvedilol 6.25 MG Oral Tablet (Coreg)Indications :Chronic systolic heart failure (HCC),Paroxysmal atrial fibrillation (HCC) Take 1 Tab by mouth 2 times a day. with food 180 Tab 3 1 Active Fluticasone-Salmet reg 250-50 MCG/DOSE Inhalation Aerosol Powder Breath Activated (Advair Diskus) Inhale 1 Puff by mouth 2 times a day. 0 Active Digoxin 125 MCG Oral Tablet (Lanoxin)Indicatio ns:Chronic systolic heart failure (HCC),Paroxysmal atrial fibrillation (HCC) Take 1 Tab by mouth once a day on Friday, Friday, Friday ,and Friday only. 30 Tab 11 1 Active Omeprazole 20 MG Oral Capsule [...] ons:Hyperthyroidis m Take 1 Tab by mouth 3 times a day. 30 Tab 3 1 Active Blood Glucose Monitoring Suppl (CONTOUR MONITOR) w/Device KIT USE TO TEST BLOOD SUGAR 3 TIMES A DAY FOR DIAGNOSIS CODE OF E11.9 1 Kit 0 0 021 Discontinued methIMAzole 5 MG Oral Tablet (TAPAZOLE) Take 10 mg by mouth daily. 0 0 021 Discontinued(Me dication/Dose Changed) Klor-Con M20 20 MEQ Oral Tablet Extended Release (Potassium Chloride Annalisa ER)Indications:HTN , goal below 140/90 TAKE 1 TABLET BY MOUTH EVERY DAY 90 Tab 1 1 021 Discontinued MobileSpan Contour Test In Vitro Strip (Glucose Blood)Indications: Type 2 diabetes mellitus with hemoglobin A1c goal of less than 7.0% ([facility]) USE TO TEST BLOOD SUGAR 3 TIMES A DAY FOR DIAGNOSIS CODE OF E11.9 300 Strip 1 1 021 Discontinued Promethazine HCl 25 MG Oral Tablet (Phenergan)Indicat ions:Generalized osteoarthritis TAKE 1 TABLET BY MOUTH EVERY 6 HOURS NEEDED FOR NAUSEA 30 Tab 0 1 021 Discontinued(Re fill) documented as of this encounter (statuses as of 04/22/2021) Active Problems Problem Noted Date Chronic systolic [...] as of this encounter (statuses as of 04/22/2021) Resolved Problems Problem Noted Date Resolved Date [...] Hypoxemia 10/08/2011 10/30/2015 Genetic Sleep Disorder Research Other*[id number] 07/25/2011 05/15/2016 Diverticulitis of colon 07/25/2011 01/06/20 [...] as of this encounter (statuses as of 04/22/2021) Immunizations Name Administration Dates Next Due COVID-19 mRNA, LNP-s, No Pre serve, 2-Dose Series ([facility]) 12/22/2020,2020 Hepatitis B, 20+ yrs 10/01/2017,04/21/2017,03/20 Pneumococcal [...] Smokeless Tobacco: Never Used Tobacco Cessation:Counseling Given: Yes Alcohol Use Drinks/Week oz/Week Comments No Food [...] Sign Reading Time Taken Comments Blood Pressure 118/74 04/03/2021 3:27 PM EDT Pulse 60 04/03/2021 3:27 PM EDT Temperature 36.3 C (97.3 F) 04/03/2021 3:27 PM ED T Respiratory Rate - - Oxygen Saturation - - Inhaled Oxygen Concentration - - Weight 112.3 kg (247 lb 9.6 oz) 04/03/2021 3:27 PM EDT Height - - Body Mass Index 41.2 03/05/2021 8:32 AM EDT documented in this encounter Patient Instructions * Patient Instructions* Renetta Gu LPN - 04/03/2021 3:20 PM EDT Patient Instructions - Fall Prevention [...] throughout the day. Joceline Patient Education Copyright 2008 - 2010 [...] Wear support stockings (TEDs)if you have edema Renetta Gu LPN 04/03/2021 Kegel Exercises Kegel exercises dont require special [...] effective. Joceline Patient Education Copyright 2009 - 2011 Joceline except where otherwise noted. Here are [...] Progress Notes * Marcela Pinto MD - 04/03/2021 3:45 PM EDT HPI: 80 y/o female with asthma, allergic rhinitis, JORDAN, HTN, HLD, DM II, IBS, HECTOR, COPD with chronic resp failure, GERD, morbid obesity, CKD III, asthma, ischemic colitis ,Mild obstructive CAD,uses oxygen2 li during day time and 4 lit at night, follows with dr. Bhatti, Dr. Butts, last admission at [facility] was in 02/2021 for CHF exaberation after cutting down her lasix from 80 po bid to to 40 mg po daily. At hospital discharge she was stated on Aldactone 12.5 mg po daily, Digoxin 125 mcg daily for tachycardia and CHF and Coreg was increased to 6.25 mg orally twice daily and advised to stop diltiazem, currently not on any anticoag secondary to history of GI bleed, currently on ASA 81 mg po daily,was started on amoxicillin for 3 days and states s/s little better, Chief Complaint Patient presents with Follow Up Patient is here for the recheck. Chart reviewed with the patient including current meds, last labs and HM. No acute event since we saw patient last time including no recent fall or injuries. Denies any chestpain/palpitation Minimal swealling in legs. Has some sob and wheezing but not new. Denies any cough/chestpain. Denies nausea,vomiting, diarrhoea, constipation, abdominal pain or blood in stool. Denies heart burn. Has fair appetite. Has some urinary symptoms, finishing Amoxicillin 3 rd today. Will give us urine culture specimen. Has some anxiety but no depression. 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 Allergic rhinitis J30.9 Nocturnal hypoxia G47.34 Sleep apnea, obstructive G47.33 HTN, goal below 140/90 I10 Hyperlipidemia with target LDL less than 100 E78.5 Controlled substance agreement signed Z79.899 Type 2 diabetes mellitus with hemoglobin A1c goal of less than 7.5% ([facility]) E11.9 Hypercalcemia E83.52 Elevated plasma metanephrines R79.89 Irritable bowel syndrome with constipation K58.1 Ischemic colitis ([facility]) K55.9 HECTOR (generalized anxiety disorder) F41.1 COPD, group B, 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 ([facility]) J44.9 Morbid obesity with BMI of 40.0-44.9, adult ([facility]) E66.01, Z68.41 Gastro-esophageal reflux disease without esophagitis K21.9 Diabetes mellitus with stage 3 chronic kidney disease ([facility]) E11.22, N18.30 Paroxysmal atrial fibrillation ([facility]) I48.0 Chronic systolic heart failure ([facility]) I50.22 Pulmonary HTN ([facility]) I27.20 Chronic hypoxemic respiratory failure ([facility]) J96.11 Current Outpatient Medications Medication Sig Dispense Refill CareSens N Glucose Test In Vitro Strip (Glucose Blood) Test as directed. Tests three times daily CareSens N Voice System Device Use as directed. Tests three times daily/E11.9 methIMAzole 10 MG Oral Tablet (Tapazole) Take 1 Tab by mouth 3 times a day. 30 Tab 3 Omeprazole 20 MG Oral Capsule Delayed Release (PriLOSEC) TAKE 1 CAPSULE BY MOUTH TWICE A DAY 180 Cap 1 Promethazine HCl 25 MG Oral Tablet (Phenergan) TAKE 1 TABLET BY MOUTH EVERY 6 HOURS NEEDED FOR NAUSEA 60 Tab 0 Digoxin 125 MCG Oral Tablet (Lanoxin) Take 1 Tab by mouth once a day on Friday, Friday, Friday ,and Friday only. 30 Tab 11 Fluticasone-Salmeterol 250-50 MCG/DOSE Inhalation Aerosol Powder Breath Activated (Advair Diskus) Inhale 1 Puff by mouth 2 times a day. HYDROcodone-Acetaminophen 5-325 MG Oral Tablet Take 1 Tab by mouth every 6 hours as needed for Pain, Mild. 120 Tab 0 Carvedilol 6.25 MG Oral Tablet (Coreg) Take 1 Tab by mouth 2 times a day. with food 180 Tab 3 Furosemide 40 MG Oral Tablet (Lasix) 80 mg in AM, 40 mg in PM 270 Tab 1 Spironolactone [...] 4 TIMES A DAY 12 g 3 Klor-Con M20 20 MEQ Oral Tablet Extended Release (Potassium Chloride Annalisa ER) TAKE 1 TABLET BY MOUTH EVERY DAY 90 Tab 1 Zafirlukast 20 MG Oral Tablet (ACCOLATE) TAKE 1 TABLET BY MOUTH EVERY DAY 90 Tab 3 doxycycline 100 MG Tablet Take 100 mg by mouth 2 times a day. RESCUE KIT: Take for Colds. ondansetron ODT (ZOFRAN) [address] 8 mg on tongue every 8 hours as needed for Nausea. dissolve on tongue. Albuterol Sulfate (VENTOLIN HFA) 108 (90 Base) MCG/ACT AERS Inhale 2 Puffs by mouth 2 times a day. guaiFENesin-codeine (ROBITUSSIN AC) 100-10 MG/5ML solution Take 10 mL by mouth every 4 hours asneeded. albuterol sulfate (PROVENTIL) (2.5 MG/3ML) 0.083% nebulizer [...] breakfast. 90 Tab 3 Nebulizers (NEBULIZER COMPRESSOR) [facility] [place] Inhale via nebulizer. Use as directed. Please [...] taking differently: Take 17 g by mouth daily. Onecap full in juice, to effect 1 stool [...] 1000 UNITS PO TABS one tablet daily Lancets MISC Use as directed. 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 OBJECTIVE: BP 118/74 | Pulse 60 | Temp 36.3 C (97.3 F) (Tympanic) PHYSICAL EXAM: HEENT: PERRLA, EOMI, anicteric sclera, b/l tympanic membrane is pearly white, no erythema, no pharyngeal erythema, no lymphadenopathy, neck supple CVS: RRR, no murmurs, rubs or gallops, s1 s 2normal. RESP: clear to auscultation, + wheezing , no crackles ABD: soft, NT/ND EXT: no edema, cyanosis, peripheral pulses palpable bilaterally No large joint swelling, no redness, range of motion normal. Skin normal. Gait normal. Mood stable No focal weakness ASSESSMENT AND PLAN: Controlled substance agreement signed (Primary) - PAIN MANAGEMENT DRUG PANEL, URINE W/ INTERPRETATION; Future; Expected date: 04/03/2021 Risk and functional assessment GENERAL OSTEOARTHROSIS - Promethazine HCl 25 MG Oral Tablet (Phenergan); TAKE 1 TABLET BY MOUTH EVERY 6 HOURS NEEDED FOR NAUSEA Type 2 diabetes mellitus with hemoglobin A1c goal of less than 7.5% (HCC) Chronic hypoxemic respiratory failure (HCC) On Advair. Hyperlipidemia with target LDL less than 100 On Lipitor. Asthma with severity to be determined Nocturnal hypoxia Sleep apnea, obstructive HTN, goal below 140/90 Well controlled. Continue aldactone, digoxin, Coreg, lisinopril current dose. Ischemic colitis (HCC) Gastro-esophageal reflux disease without esophagitis Advised pt to avoid caffeine, fried fatty foods, choclates, peppermints, smoking and alcohol. Exercise and weight loss emphasized. Eat dinner 3 hours prior to bed time. HECTOR (generalized anxiety disorder) Stable. Hyperthyroidism On Methimazole. Keep f/u with Endocrine. Dysuria - CULTURE, URINE, QUANTITATIVE Advised hydration. Follow Up: Return in about 3 months (around 07/04/2021) for Return with Physician. | For: Return with Physician * Renetta Gu LPN - 04/03/2021 3:19 PM EDT Here for follow up documented in this encounter Plan of Treatment Upcoming Encounters Date Type Specialty Care Team Description 04/24/2021 Office Visit Internal Medicine Marcela Pinto MD [address] [facility] [place] [address] [phone] 06/13/2021 [facility] Visit [facility]iology [facility] [address] [facility] [address] [phone] 07/10/2021 Office Visit Internal Medicine Marcela Pinto MD [address] [facility] [place] [address] [phone] 08/08/2021 Nurse Only Ancillary Im, Nurse Annual Wellness [facility] [address] [facility] [place] [address] [phone] Scheduled Orders Name Type Priority Associated Diagnoses Orde r Schedule PAIN MANAGEMENT DRUG PANEL, URINE W/ INTERPRETATION Lab Routine Controlled substance agreement signed Expected: 04/03/2021, Expires: 04/03/2022 Health Maintenance Due Date Last Done Comments Zoster Vaccines (2 of 3) 08/31/2012 07/06/2012 Influenza Vaccine (FLU shot) (#1) 2021 06/22/2020, 06/22/2020, 07/09/2019, Additional history exists CKD GFR USE SMARTSET 54958 09/09/202103/09, 03/05/2021, 01/24/2021, Additional history exists DIABETES-HGBA1C EVERY 6 MONTHS 09/09/2021 03/09/2021, 12/05/2020, 08/10/2020, Additional history exists DIABETES-FOOT EXAM 12/21/2021 12/21/2020, 0 10/19/2019, 01/05/2019, Additional history exists CKD HGB USE SMARTSET 52411 03/09/202203/09, 03/09/2021, 01/24/2021, Additional history exists CKD PHOS USE SMARTSET 68068 03/09/2022 03/09/2021, 0 03/22/2019 DIABETES-EYE EXAM 03/26/2022 [...] Procedure Name Priority Date/Time Associated Diagnosis Comments CULTURE, URINE, QUANTITATIVE Routine 04/03/2021 4:01 PM EDT Dysuria documented in this encounter Results * CULTURE, URINE, QUANTITATIVE (04/03/2021 4:01 PM EDT) Culture Growth 10,000 to 100,000 colonies/mL Escherichia coli ESBL producing organism, This patient may require isolation.(A) [facility] Specimen Urine - Urine, Clean Catch Narrative Performed At <10,000 colonies/ml normal tal, one colony type [facility] Organism Antibiotic Method Susceptibility Escherichia coli ESBL producing organism, This patient may require isolation. Ampicillin MICROBROTH DILUTIONS >=32: Resistant Escherichia coli ESBL producing organism, This patient may require isolation. Ampicillin/Sulbactam MICROBROTH DILUTIONS >=32: Resistant Escherichia coli ESBL producing organism, This patient may require isolation. Cefazolin MICROBROTH DILUTIONS >=64: Resistant Escherichia coli ESBL producing organism, This patient may require isolation. Cefepime MICROBROTH DILUTIONS >=64: Resistant Escherichia coli ESBL producing organism, This patient may require isolation. Ceftriaxone MICROBROTH DILUTIONS >=64: Resistant Escherichia coli ESBL producing organism, This patient may require isolation. Ciprofloxacin MICROBROTH DILUTIONS >=4: Resistant Comment:Due to elenita us side effects, the FDA has advised against using Ciprofloxacin to treat uncomplicated UTIs and respiratory tract infections unless there are no alternative treatment options. Escherichia coli ESBL producing organism, This patient may require isolation. Gentamicin MICROBROTH DILUTIONS >=16: Resistant Escherichia coli ESBL producing organism, This patient may require isolation. Levofloxacin MICROBROTH DILUTIONS >=8: Resistant Comment:Due to elenita us side effects, the FDA has advised against using Levofloxacin to treat uncomplicated UTIs and respiratory tract infections unless there are no alternative treatment options. Escherichia coli ESBL producing organism, This patient may require isolation. Meropenem MICROBROTH DILUTIONS <=0.25: Susceptible Escherichia coli ESBL producing organism, This patient may require isolation. Nitrofurantoin MICROBROTH DILUTIONS 64: Intermediate Escherichia coli ESBL producing organism, This patient may require isolation. Piperacillin Tazobactam MICROBROTH DILUTIONS 64: Intermediate Escherichia coli ESBL producing organism, This patient may require isolation. Tobramycin MICROBROTH DILUTIONS 8: Intermediate Escherichia coli ESBL producing organism, This patient may require isolation. Trimeth/Sulfamethoxazol e MICROBROTH DILUTIONS >=320: Resistant Escherichia coli ESBL producing organism, This patient may require isolation. Ertapenem ARTEM LOGAN 29: Susceptible [facility] [address] [place] [address] documented in this encounter Visit Diagnoses Diagnosis Controlled substance agreement signed- Primary Encounter for long-term (current) use of other medications Risk and functional assessment Screening for unspecified condition GENERAL OSTEOARTHROSIS Generalized osteoarthrosis, unspecified site Type 2 diabetes mellitus with hemoglobin A1c goal of less than 7.5% (HCC) Chronic hypoxemic respiratory failure (HCC) Chronic respiratory failure Hyperlipidemia with target LDL less than 100 Other and unspecified hyperlipidemia Asthma with severity to be determined Nocturnal hypoxia Hypoxemia Sleep apnea, obstructive Obstructive sleep apnea (adult) (pediatric) HTN, goal below 140/90 Unspecified essential hypertension Ischemic colitis (HCC) Unspecified vascular insufficiency of intestine Gastro-esophageal reflux disease without esophagitis Esophageal reflux HECTOR (generalized anxiety disorder) Generalized anxiety disorder Hyperthyroidism Thyrotoxicosis without mention of goiter or other cause, without mention of thyrotoxic crisis or storm Dysuria documented in this encounter Advance Directives Documents on File Type Date Recorded 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
--- OUTSIDE RECORDS SUMMARY | 2023-06-18 03:11 | External Medical Summary | Summary of Care ---
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 120 Tab 0 03/06/2021 Active Furosemide 40 MG Oral Tablet (Lasix)Indications:Ch ronic systolic heart failure (HCC) 80 mg in AM, 40 mg in PM 270 Tab 1 03/05/2021 Active Spironolactone 25 MG Oral Tablet (Aldactone)Indication s:Chronic systolic heart failure (HCC) Take 0.5 Tabs by mouth daily. 30 Tab 3 03/05/2021 Active Carvedilol 6.25 MG Oral Tablet (Coreg)Indications:Ch ronic systolic heart failure (HCC),Paroxysmal atrial fibrillation (HCC) Take 1 Tab by mouth 2 times a day. with food 180 Tab 3 03/05/2021 Active Fluticasone-Salmetero l 250-50 MCG/DOSE Inhalation Aerosol Powder Breath Activated (Advair Diskus) Inhale 1 Puff by mouth 2 times a day. 0 Active Digoxin 125 MCG Oral Tablet (Lanoxin)Indications: Chronic systolic heart failure (HCC),Paroxysmal atrial fibrillation (HCC) Take 1 Tab by mouth once a day on Friday, Friday, Friday ,and Friday only. 30 Tab 11 03/16/2021 Active Omeprazole 20 MG Oral Capsule Delayed [...] (Tapazole)Indications :Hyperthyroidism Take 1 Tab by mouth 3 times a day. 30 Tab 3 04/03/2021 Active Fosfomycin Tromethamine 3 GM Oral Packet (Monurol)Indications: Acute cystitis without hematuria Take 3 g by mouth every other day. 2 Packet 0 04/10/2021 Active Klor-Con M20 20 MEQ Oral Tablet Extended Release (Potassium Chloride Annalisa ER)Indications:HTN, goal below 140/90 TAKE 1 TABLET BY MOUTH EVERY DAY 90 Tab 1 04/13/2021 Active documented as of this encounter (statuses as of 04/19/2021) Active Problems Problem Noted Date Chronic systolic [...] as of this encounter (statuses as of 04/19/2021) Resolved Problems Problem Noted Date Resolved Date [...] Hypoxemia 10/08/2011 10/30/2015 Genetic Sleep Disorder Research Other*[id number] 07/25/2011 05/15/2016 Diverticulitis of colon 07/25/2011 01/06/20 [...] as of this encounter (statuses as of 04/19/2021) Immunizations Name Administration Dates Next Due COVID-19 mRNA, LNP-s, No Pre serve, 2-Dose Series ([employer]) 12/22/2020,2020 Hepatitis B, 20+ yrs 10/01/2017,04/21/2017,03/20 Pneumococcal [...] Visit Internal Medicine Marcela Pinto MD [address] [facility] [place] [address] [phone] 06/13/2021 Office Visit Cardiology Dulce Merino CRNP [address] [place] [address] [phone] 07/10/2021 Office Visit Internal Medicine Marcela Pinto MD [address] [place] [address] [phone] 08/08/2021 Nurse Only [facility]illary Im, [facility] [address] [facility] [place] [address] [phone] Health Maintenance Due Date Last Done Comments Zoster Vaccines (2 of 3) 08/31/2012 07/06/2012 Influenza Vaccine (FLU shot) (#1) 2021 06/22/2020, 07/09/2019, 06/16/2018, Additional history exists CKD GFR USE SMARTSET 72578 09/09/202103/09, 03/05/2021, 01/24/2021, Additional history exists DIABETES-HGBA1C EVERY 6 MONTHS 09/09/2021 03/09/2021, 12/05/2020, 08/10/2020, Additional history exists DIABETES-FOOT EXAM 12/21/2021 12/21/2020, 0 10/19/2019, 01/05/2019, Additional history exists CKD HGB USE SMARTSET 39489 03/09/202203/09, 03/09/2021, 01/24/2021, Additional history exists CKD PHOS USE SMARTSET 05284 03/09/2022 03/09/2021, 0 03/22/2019 DIABETES-EYE EXAM 03/26/2022 [...] Documents on File Type Date Recorded Patient Screed Person Expl 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
--- OUTSIDE RECORDS SUMMARY | 2023-06-18 03:11 | External Medical Summary | Summary of Care ---
Author Name Unknown Organization [place] [address] Care Team Providers Care Superintendent Stations Name Role Phone Marcela Pinto MD Primary Care Provider + Encounter Details Date Type Department Care Team Description 04/14/2021 Scan Encounter Unspecified Department <No scans attached> Allergies Active Allergy Reactions Severity Noted Date Comments Valsartan 07/10/2010 Enalapril 05/21/2006 Escitalopram Oxalate Nausea/vomiting 10/11/2009 Nauseated Iodinated Diagnostic Agents Nausea/vomiting 05/2010 IV Contrast Iodine Hives 12/18/2009 IV Contrast Metoprolol Tartrate 11/18/2006 Made pulse low [place] Oil-Black Currant-Vit E 07/10/2010 Verapamil 03/21/2004 Bupropion Hcl 10/30/2009 Makes pt sick in the stomach documented as of this encounter (statuses as of 04/17/2021) Medications Medication Sig Dispensed Refills Start Date [...] A1c goal of less than 7.5% ([facility]) Take 2 mg by mouth daily [...] as of this encounter (statuses as of 04/17/2021) Active Problems Problem Noted Date Chronic systolic [...] as of this encounter (statuses as of 04/17/2021) Resolved Problems Problem Noted Date Resolved Date [...] Hypoxemia 10/08/2011 10/30/2015 Genetic Sleep Disorder Research Other*[id number] 07/25/2011 05/15/2016 Diverticulitis of colon 07/25/2011 01/06/20 [...] as of this encounter (statuses as of 04/17/2021) Immunizations Name Administration Dates Next Due COVID-19 mRNA, LNP-s, No Pre serve, 2-Dose Series ([employer]) 12/22/2020,2020 Hepatitis B, 20+ yrs 10/01/2017,04/21/2017,03/20 Pneumococcal [...] Merino CRNP [address] [place] [address] [phone] 07/10/2021 Office Visit Internal Medicine Marcela Pinto MD [address] [place] [address] [phone] 08/08/2021 Nurse Only Ancillary Im, Nurse Annual Wellness [place] [address] [facility] [place] [address] [phone] Health Maintenance Due Date Last Done Comments Zoster Vaccines (2 of 3) 08/31/2012 07/06/2012 Influenza Vaccine (FLU shot) (#1) 2021 06/22/2020, 07/09/2019, 06/16/2018, Additional history exists CKD GFR USE SMARTSET 02677 09/09/202103/09, 03/05/2021, 01/24/2021, Additional history exists DIABETES-HGBA1C EVERY 6 MONTHS 09/09/2021 03/09/2021, 12/05/2020, 08/10/2020, Additional history exists DIABETES-FOOT EXAM 12/21/2021 12/21/2020, 0 10/19/2019, 01/05/2019, Additional history exists CKD HGB USE SMARTSET 86228 03/09/202203/09, 03/09/2021, 01/24/2021, Additional history exists CKD PHOS USE SMARTSET 20211 03/09/2022 03/09/2021, 0 03/22/2019 DIABETES-EYE EXAM 03/26/2022 [...] Documents on File Type Date Recorded 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
--- OUTSIDE RECORDS SUMMARY | 2023-06-18 03:11 | External Medical Summary | Summary of Care ---
Author Name Unknown Organization [place] [address] Care Team Providers Care Golf Course Keeper Name Role Phone Marcela Pinto MD Primary Care Provider + Encounter Details Date Type Department Care Team Description 04/14/2021 Result Scan Unspecified Department <No scans attached> Allergies Active Allergy Reactions Severity Noted Date Comments Valsartan 07/10/2010 Enalapril 05/21/2006 Escitalopram Oxalate Nausea/vomiting 10/11/2009 Nauseated Iodinated Diagnostic Agents Nausea/vomiting 05/2010 IV Contrast Iodine Hives 12/18/2009 IV Contrast Metoprolol Tartrate 11/18/2006 Made pulse low [place] Oil-Black Currant-Vit E 07/10/2010 Verapamil 03/21/2004 Bupropion [...] less than 7.5% ([facility]) Take 2 mg by mouth [...] Hypoxemia 10/08/2011 10/30/2015 Genetic Sleep Disorder Research Other*[id number] 07/25/2011 05/15/2016 Diverticulitis of colon 07/25/2011 01/06/20 [...] mRNA, LNP-s, No Pre serve, 2-Dose Series ([employer]) 12/22/2020,2020 Hepatitis B, 20+ yrs 10/01/2017,04/21/2017,03/20 Pneumococcal [...] Merino CRNP [address] [place] [address] [phone] 07/10/2021 Office Visit Internal Medicine Marcela Pinto MD [address] [place] [address] [phone] 08/08/2021 Nurse Only Ancillary Im, Nurse Annual Wellness [place] [address] [facility] [place] [address] [phone] Health Maintenance Due Date Last Done Comments Zoster Vaccines (2 of 3) 08/31/2012 07/06/2012 Influenza Vaccine (FLU shot) (#1) 2021 06/22/2020, 07/09/2019, 06/16/2018, Additional history exists CKD GFR USE SMARTSET 33767 09/09/202103/09, 03/05/2021, 01/24/2021, Additional history exists DIABETES-HGBA1C EVERY 6 MONTHS 09/09/2021 03/09/2021, 12/05/2020, 08/10/2020, Additional history exists DIABETES-FOOT EXAM 12/21/2021 12/21/2020, 0 10/19/2019, 01/05/2019, Additional history exists CKD HGB USE SMARTSET 55970 03/09/202203/09, 03/09/2021, 01/24/2021, Additional history exists CKD PHOS USE SMARTSET 05434 03/09/2022 03/09/2021, 0 03/22/2019 DIABETES-EYE EXAM 03/26/2022 [...] Procedure Name Priority Date/Time Associated Diagnosis Comments ECHOCARDIOLOGY SCANNED RESULT 04/14/2021 documented in this encounter Results * ECHOCARDIOLOGY SCANNED RESULT (04/14/2021) Specimen Narrative Performed At documented in this encounter Advance Directives Documents on File Type Date Recorded Patient Presales Senior Specialist Expl 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
--- OUTSIDE RECORDS SUMMARY | 2023-06-18 03:11 | External Medical Summary | Summary of Care ---
Author Name Unknown Organization [place] [address] Care Team Providers Care Biodiesel Engine Specialist Name Role Phone Alex Pinto MD Primary Care Provider + Reason for Visit * Reason Comments eRx-Medication Refill Encounter Details Date Type Department Care Team Description 04/13/2021 Refill General Internal Medicine [facility] [address] [place] [address] Alex Pinto MD [address] [place], [place] [id number] HTN, goal below 140/90 Allergies Active Allergy Reactions Severity Noted Date Comments Valsartan 07/10/2010 Enalapril 05/21/2006 Escitalopram Oxalate Nausea/vomiting 10/11/2009 Nauseated Iodinated Diagnostic Agents Nausea/vomiting 05/2010 IV Contrast Iodine Hives 12/18/2009 IV Contrast Metoprolol Tartrate 11/18/2006 Made pulse low [place] Oil-Black Currant-Vit E 07/10/2010 Verapamil 03/21/2004 Bupropion Hcl 10/30/2009 Makes pt sick in the stomach documented as of this encounter (statuses as of 04/13/2021) Medications Medication Sig Dispensed Refills Start Date [...] hma with severity to be determined,COPD, moderate (FORMERLY [...] Tablet (Lasix)Indications: Chronic systolic heart failure (HCC) 80 mg in AM, 40 mg in PM 270 Tab 1 1 Active Spironolactone 25 MG Oral Tablet (Aldactone)Indicati ons:Chronic systolic heart failure (HCC) Take 0.5 Tabs by mouth daily. 30 Tab 3 1 Active Carvedilol 6.25 MG Oral Tablet (Coreg)Indications: Chronic systolic heart failure (HCC),Paroxysmal atrial fibrillation (HCC) Take 1 Tab by mouth 2 times a day. with food 180 Tab 3 1 Active Fluticasone-[place] rol 250-50 MCG/DOSE Inhalation Aerosol Powder Breath Activated (Advair Diskus) Inhale 1 Puff by mouth 2 times a day. 0 Active Digoxin 125 MCG Oral Tablet (Lanoxin)Indication [...] (Tapazole)Indicatio ns:Hyperthyroidism Take 1 Tab by mouth 3 times a day. 30 Tab 3 1 Active Fosfomycin Tromethamine 3 GM Oral Packet (Monurol)Indication s:Acute cystitis without hematuria Take 3 g by mouth every other day. 2 Packet 0 1 Active Klor-Con M20 20 MEQ Oral Tablet Extended Release (Potassium Chloride Annalisa ER)Indications:HTN, goal below 140/90 TAKE 1 TABLET BY MOUTH EVERY DAY 90 Tab 1 1 Active Klor-Con M20 20 MEQ Oral Tablet Extended Release (Potassium Chloride Annalisa ER)Indications:HTN, goal below 140/90 TAKE 1 TABLET BY MOUTH EVERY DAY 90 Tab 1 1 04/13/20 21 Discontinued documented as of this encounter (statuses as of 04/13/2021) Active Problems Problem Noted Date Chronic systolic heart failure 1 Pulmonary HTN 03/05/2021 Chronic hypoxemic respiratory failure Paroxysmal atrial fibrillation Diabetes mellitus with stage 3 chronic k [...] as of this encounter (statuses as of 04/13/2021) Resolved Problems Problem Noted Date Resolved Date [...] Hypoxemia 10/08/2011 10/30/2015 Genetic Sleep Disorder Research Other*[id number] 07/25/2011 05/15/2016 Diverticulitis of colon 07/25/2011 01/06/20 [...] as of this encounter (statuses as of 04/13/2021) Immunizations Name Administration Dates Next Due COVID-19 mRNA, LNP-s, No Pre serve, 2-Dose Series ([employer]) 12/22/2020,2020 Hepatitis B, 20+ yrs 10/01/2017,04/21/2017,03/20 Pneumococcal [...] encounter Miscellaneous Notes * Telephone Encounter - Jud Pereyra RPh - 04/13/2021 2:28 PM EDT Signed Prescriptions: Disp Refills Klor-Con M20 20 MEQ Oral Tablet Extended R*90 Tab 1 Sig: TAKE 1 TABLET BY MOUTH EVERY DAYAuthorizing Provider: ALEX PINTOOrdercorwin User: JUD PEREYRA IE documented in this encounter Plan of Treatment Upcoming Encounters Date Type Specialty Care Team Description 06/13/2021 [facility] Visit [facility] [address] [facility] [address] [phone] 07/10/2021 Office Visit Internal Medicine Alex Pinto MD 200 [facility] [place] [address] [phone] 08/08/2021 Nurse Only Ancillary Im, Nurse Annual Wellness [facility] [address] [facility] [place] [address] [phone] Health Maintenance Due Date Last Done Comments Zoster Vaccines (2 of 3) 08/31/2012 07/06/2012 Influenza Vaccine (FLU shot) (#1) 2021 06/22/2020, 07/09/2019, 06/16/2018, Additional history exists CKD GFR USE SMARTSET 09113 09/09/202103/09, 03/05/2021, 01/24/2021, Additional history exists DIABETES-HGBA1C EVERY 6 MONTHS 09/09/2021 03/09/2021, 12/05/2020, 08/10/2020, Additional history exists DIABETES-FOOT EXAM 12/21/2021 12/21/2020, 0 10/19/2019, 01/05/2019, Additional history exists CKD HGB USE SMARTSET 00212 03/09/202203/09, 03/09/2021, 01/24/2021, Additional history exists CKD PHOS USE SMARTSET 68972 03/09/2022 03/09/2021, 0 03/22/2019 DIABETES-EYE EXAM 03/26/2022 [...] Documents on File Type Date Recorded 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
--- OUTSIDE RECORDS SUMMARY | 2023-06-18 03:11 | External Medical Summary | Summary of Care ---
Author Name Unknown Organization [place] [address] Care Team Providers Care Telecommunications Professional Name Role Phone Marcela Pinto MD Primary Care Provider + Encounter Details Date Type Department Care Team Description 04/11/2021 Scan Encounter Unspecified Department <No scans attached> Allergies Active Allergy Reactions Severity Noted Date Comments Valsartan 07/10/2010 Enalapril 05/21/2006 Escitalopram Oxalate Nausea/vomiting 10/11/2009 Nauseated Iodinated Diagnostic Agents Nausea/vomiting 05/2010 IV Contrast Iodine Hives 12/18/2009 IV Contrast Metoprolol Tartrate 11/18/2006 Made pulse low [place] Oil-Black Currant-Vit E 07/10/2010 Verapamil 03/21/2004 Bupropion Hcl 10/30/2009 Makes pt sick in the stomach documented as of this encounter (statuses as of 04/11/2021) Medications Medication Sig Dispensed Refills Start Date [...] A1c goal of less than 7.5% ([facility]) Take 2 mg by mouth daily before [...] A1c goal of less than 7.0% ([facility]) Use as directed. USE TO TEST BLOOD [...] EVERY DAY 90 Tab 3 08/15/2020 Active Klor-Con M20 20 MEQ Oral Tablet Extended Release (Potassium Chloride Annalisa ER)Indications:HTN, goal below 140/90 TAKE 1 TABLET BY MOUTH EVERY DAY 90 Tab 1 10/18/2020 Active Combivent Respimat 20-100 MCG/ACT Inhalation Aerosol [...] other day. 2 Packet 0 04/10/2021 Active documented as of this encounter (statuses as of 04/11/2021) Active Problems Problem Noted Date Chronic systolic [...] as of this encounter (statuses as of 04/11/2021) Resolved Problems Problem Noted Date Resolved Date [...] Hypoxemia 10/08/2011 10/30/2015 Genetic Sleep Disorder Research Other*[id number] 07/25/2011 05/15/2016 Diverticulitis of colon 07/25/2011 01/06/20 [...] as of this encounter (statuses as of 04/11/2021) Immunizations Name Administration Dates Next Due COVID-19 mRNA, LNP-s, No Pre serve, 2-Dose Series ([employer]) 12/22/2020,2020 Hepatitis B, 20+ yrs 10/01/2017,04/21/2017,03/20 Pneumococcal [...] Merino CRNP [address] [place] [address] [phone] 07/10/2021 Office Visit Internal Medicine Marcela Pinto MD [address] [place] [address] [phone] 08/08/2021 Nurse Only Ancillary Im, Nurse Annual Wellness [place] [address] [facility] [address] [phone] Health Maintenance Due Date Last Done Comments Zoster Vaccines (2 of 3) 08/31/2012 07/06/2012 CKD GFR USE SMARTSET 51413 09/09/202103/09, 03/05/2021, 01/24/2021, Additional history exists DIABETES-HGBA1C EVERY 6 MONTHS 09/09/2021 03/09/2021, 12/05/2020, 08/10/2020, Additional history exists DIABETES-FOOT EXAM 12/21/2021 12/21/2020, 0 10/19/2019, 01/05/2019, Additional history exists CKD HGB USE SMARTSET 58760 03/09/202203/09, 03/09/2021, 01/24/2021, Additional history exists CKD PHOS USE SMARTSET 35038 03/09/2022 03/09/2021, 0 03/22/2019 DIABETES-EYE EXAM 03/26/2022 03/26/2021, , 08/10/2019, Additional history exists Dexa Scan 08/08/2025 08/08/2020, 04/13, 06/19/2010, Additional history exists DTaP,Tdap,and Td Vaccines (2 - Td) 06/04/2028 06/04/2018, 02/28/2009 Pneumococcal Vaccine: 65+ Years Completed 03/28/2015, 05/21/2006 Influenza Vaccine (FLU shot) Completed 07/2020, 07/09/2019, 06/16/2018, Additional history exists COVID-19 Vaccine Completed 12/22/2020, 2020 MENINGOCOCCAL (MENACTRA/MENVEO) Aged Out No longer eligible based on patient's age to complete this topic documented as of this encounter Implants Not on filedocumented as of this encounter Advance Directives Documents on File Type Date Recorded Patient Burn Nurse Expl anation Advanced 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
--- OUTSIDE RECORDS SUMMARY | 2023-06-18 03:11 | External Medical Summary | Summary of Care ---
Author Name Unknown Organization [place] [address] Care Team Providers Care Mingler Operator Name Role Phone Marcela Pinto MD Primary Care Provider + Encounter Details Date Type Department Care Team Description 04/17/2021 Orders Only Cardiology, [facility] [address] [place] [address] Bartolo Burgess, Moris Mason, [address] [place] [address] Allergies Active Allergy Reactions Severity Noted Date Comments Valsartan 07/10/2010 Enalapril 05/21/2006 Escitalopram Oxalate Nausea/vomiting 10/11/2009 Nauseated Iodinated Diagnostic Agents Nausea/vomiting 05/2010 IV Contrast Iodine Hives 12/18/2009 IV Contrast Metoprolol Tartrate 11/18/2006 Made pulse low [place] Oil-Black Currant-Vit E 07/10/2010 Verapamil 03/21/2004 Bupropion [...] l)Indications:Asthma with severity to be determined,COPD, moderate ([place] [...] Hypoxemia 10/08/2011 10/30/2015 Genetic Sleep Disorder Research Other*[id number] 07/25/2011 05/15/2016 Diverticulitis of colon 07/25/2011 01/06/20 [...] mRNA, LNP-s, No Pre serve, 2-Dose Series ([employer]) 12/22/2020,2020 Hepatitis B, 20+ yrs 10/01/2017,04/21/2017,03/20 Pneumococcal [...] Cardiology Dulce Merino CRNP [address] [place] [address] [phone] 07/10/2021 Office Visit Internal Medicine Marcela Pinto MD 200 [facility] [place] [address] [phone] 08/08/2021 Nurse Only Ancillary Im, [facility] [address] [place] [address] [phone] Health Maintenance Due Date Last Done Comments Zoster Vaccines (2 of 3) 08/31/2012 07/06/2012 Influenza Vaccine (FLU shot) (#1) 2021 06/22/2020, 07/09/2019, 06/16/2018, Additional history exists CKD GFR USE SMARTSET 98973 09/09/202103/09, 03/05/2021, 01/24/2021, Additional history exists DIABETES-HGBA1C EVERY 6 MONTHS 09/09/2021 03/09/2021, 12/05/2020, 08/10/2020, Additional history exists DIABETES-FOOT EXAM 12/21/2021 12/21/2020, 0 10/19/2019, 01/05/2019, Additional history exists CKD HGB USE SMARTSET 13272 03/09/202203/09, 03/09/2021, 01/24/2021, Additional history exists CKD PHOS USE SMARTSET 91817 03/09/2022 03/09/2021, 0 03/22/2019 DIABETES-EYE EXAM 03/26/2022 [...] Procedure Name Priority Date/Time Associated Diagnosis Comments XR CHEST 2 VIEWS Routine 04/14/2021 documented in this encounter Results * XR CHEST 2 VIEWS (04/14/2021) Specimen Narrative Performed At OUTSIDE LAB (SEE SCANNED REPORT) documented in this encounter Advance Directives Documents on File Type Date Recorded 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
--- OUTSIDE RECORDS SUMMARY | 2023-06-18 03:11 | External Medical Summary | Summary of Care ---
Author Name Unknown Organization [place] [address] Care Team Providers Care Saw Repairer Name Role Phone Marcela Pinto MD Primary Care Provider + Encounter Details Date Type Department Care Team Description 04/13/2021 Telephone [facility] [address] [place] [address] Clay Guevara MD [address] [place] [address] Allergies Active Allergy Reactions Severity Noted Date Comments Valsartan 07/10/2010 Enalapril 05/21/2006 Escitalopram Oxalate Nausea/vomiting 10/11/2009 Nauseated Iodinated Diagnostic Agents Nausea/vomiting 05/2010 IV Contrast Iodine Hives 12/18/2009 IV Contrast Metoprolol Tartrate 11/18/2006 Made pulse low [place] Oil-Black Currant-Vit E 07/10/2010 Verapamil 03/21/2004 Bupropion [...] Hypoxemia 10/08/2011 10/30/2015 Genetic Sleep Disorder Research Other*[id number] 07/25/2011 05/15/2016 Diverticulitis of colon 07/25/2011 01/06/20 [...] mRNA, LNP-s, No Pre serve, 2-Dose Series ([employer]) 12/22/2020,2020 Hepatitis B, 20+ yrs 10/01/2017,04/21/2017,03/20 Pneumococcal [...] encounter Miscellaneous Notes * Telephone Encounter - Clay Guevara MD - 04/13/2021 5:02 PM EDT Received the call from transfer center-requesting me to speak to 1 of the hospitalist from [facility] Per transfer center-1 of the hospitalist from [facility]--Ruby Chang MD- wanted to speak to on-call Endocrinology ---I could not find any recent information/ inpatient admission- in the hcart Per verbal report 80 year old female--? Sepsis Hyperthyroidism on methimazole ESBL Labs: 04/10: TSH- 2.2 Methimazole AM cortisol- 3.7 -reports patient is being on stress dose steroid -asking steroid taper regimen Advised: Stress dose steroids for the duration of severe illness--100 mg q.8 hrs Progressively taper based on the response/stability (the above provided to monitor the response) -50 mg q.8 -50 mg twice daily -30 mg in the morning, 20 mg in the evening---for the duration of illness -when she recovered from illness--15-25 mg daily (in 2 divided doses) based on the response---follow-up with endocrinology documented in this encounter Plan of Treatment Upcoming Encounters Date Type Specialty Care Team Description 06/13/2021 Office Visit Cardiology Dulce Merino CRNP 132 [facility] [place] [address] [phone] 07/10/2021 Office Visit Internal Medicine Marcela Pinto MD 200 [facility] [place] [address] [phone] 08/08/2021 Nurse Only Ancillary Im, Nurse Annual Wellness [facility] [address] [facility] [place] [address] [phone] Health Maintenance Due Date Last Done Comments Zoster Vaccines (2 of 3) 08/31/2012 07/06/2012 Influenza Vaccine (FLU shot) (#1) 2021 06/22/2020, 07/09/2019, 06/16/2018, Additional history exists CKD GFR USE SMARTSET 73552 09/09/202103/09, 03/05/2021, 01/24/2021, Additional history exists DIABETES-HGBA1C EVERY 6 MONTHS 09/09/2021 03/09/2021, 12/05/2020, 08/10/2020, Additional history exists DIABETES-FOOT EXAM 12/21/2021 12/21/2020, 0 10/19/2019, 01/05/2019, Additional history exists CKD HGB USE SMARTSET 22802 03/09/202203/09, 03/09/2021, 01/24/2021, Additional history exists CKD PHOS USE SMARTSET 06194 03/09/2022 03/09/2021, 0 03/22/2019 DIABETES-EYE EXAM 03/26/2022 [...] Documents on File Type Date Recorded 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
--- OUTSIDE RECORDS SUMMARY | 2023-06-18 03:11 | External Medical Summary | Summary of Care ---
Author Name Unknown Organization [place] [address] Care Team Providers Care Strategic Consultant Name Role Phone Marcela Pinto MD [...] of less than 7.5% ([facility]) Take 2 mg by mouth daily [...] Hypoxemia 10/08/2011 10/30/2015 Genetic Sleep Disorder Research Other*[id number] 07/25/2011 05/15/2016 Diverticulitis of colon 07/25/2011 01/06/20 [...] mRNA, LNP-s, No Pre serve, 2-Dose Series ([employer]) 12/22/2020,2020 Hepatitis B, 20+ yrs 10/01/2017,04/21/2017,03/20 Pneumococcal [...] Merino CRNP [address] [place] [address] [phone] 07/10/2021 Office Visit Internal Medicine Marcela Pinto MD [address] [place] [address] [phone] 08/08/2021 Nurse Only Ancillary Im, Nurse Annual Wellness [place] [address] [facility] [place] [address] [phone] Health Maintenance Due Date Last Done Comments Zoster Vaccines (2 of 3) 08/31/2012 07/06/2012 Influenza Vaccine (FLU shot) (#1) 2021 06/22/2020, 07/09/2019, 06/16/2018, Additional history exists CKD GFR USE SMARTSET 25958 09/09/202103/09, 03/05/2021, 01/24/2021, Additional history exists DIABETES-HGBA1C EVERY 6 MONTHS 09/09/2021 03/09/2021, 12/05/2020, 08/10/2020, Additional history exists DIABETES-FOOT EXAM 12/21/2021 12/21/2020, 0 10/19/2019, 01/05/2019, Additional history exists CKD HGB USE SMARTSET 67523 03/09/202203/09, 03/09/2021, 01/24/2021, Additional history exists CKD PHOS USE SMARTSET 30000 03/09/2022 03/09/2021, 0 03/22/2019 DIABETES-EYE EXAM 03/26/2022 [...] Documents on File Type Date Recorded Patient Physical Instructor Expl 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
--- OUTSIDE RECORDS SUMMARY | 2023-06-18 03:11 | External Medical Summary | Summary of Care ---
Author Name Unknown Organization [place] [address] Care Team Providers Care Typewriter Ribbon Winder Name Role Phone Alex Pinto MD Primary Care Provider + Reason for Visit * Reason Onset Date Comments Medication Refill 04/20/2021 Encounter Details Date Type Department Care Team Description 04/20/2021 Refill General Internal Medicine [facility] [address] [facility] [place] [address] Alex Pinto MD [address] [place] [address] [phone] GENERAL OSTEOARTHROSIS Allergies Active Allergy Reactions Severity Noted Date Comments Valsartan 07/10/2010 Enalapril 05/21/2006 Escitalopram Oxalate Nausea/vomiting 10/11/2009 Nauseated Iodinated Diagnostic Agents Nausea/vomiting 05/2010 IV Contrast Iodine Hives 12/18/2009 IV Contrast Metoprolol Tartrate 11/18/2006 Made pulse low [place] Oil-Black Currant-Vit E 07/10/2010 Verapamil 03/21/2004 Bupropion Hcl 10/30/2009 Makes pt sick in the stomach documented as of this encounter (statuses as of 04/24/2021) Medications Medication Sig Dispensed Refills Start Date [...] hma with severity to be determined,COPD, moderate (MUSC [...] 03/05/2021 Active Carvedilol 6.25 MG Oral Tablet (Coreg)Indications: Chronic systolic heart failure (HCC),Paroxysmal atrial fibrillation (HCC) Take 1 Tab by mouth 2 times a day. with food 180 Tab 3 03/05/2021 Active Fluticasone-Salmete rol 250-50 MCG/DOSE Inhalation Aerosol [...] Pain, Mild. 120 Tab 0 04/24/2021 Active HYDROcodone-Acetami nophen 5-325 MG Oral TabletIndications:G eneralized osteoarthritis Take 1 Tab by mouth every 6 hours as needed for Pain, Mild. 120 Tab 0 03/06/2021 1 Discontinue d(Refill) documented as of this encounter (statuses as of 04/24/2021) Active Problems Problem Noted Date Chronic systolic [...] as of this encounter (statuses as of 04/24/2021) Resolved Problems Problem Noted Date Resolved Date [...] Hypoxemia 10/08/2011 10/30/2015 Genetic Sleep Disorder Research Other*[id number] 07/25/2011 05/15/2016 Diverticulitis of colon 07/25/2011 01/06/20 [...] as of this encounter (statuses as of 04/24/2021) Immunizations Name Administration Dates Next Due COVID-19 mRNA, LNP-s, No Pre serve, 2-Dose Series ([employer]) 12/22/2020,2020 Hepatitis B, 20+ yrs 10/01/2017,04/21/2017,03/20 Pneumococcal [...] Telephone Encounter - Alex Pinto MD - 04/24/2021 8:55 AM EDT Signed Prescriptions: Disp Refills HYDROcodone-Acetaminophen 5-325 MG Oral Ta*120 Tab0 Sig: Take 1Tab by mouth every 6 hours as needed for Pain, Mild.Authorizing Provider: ALEX PINTO----- * Telephone Encounter - Randa Berry CPhT - 04/23/2021 12:17 PM EDT Pt calling to check the status, advised in process. Thanks, Randa Berry CPhT Principal Programmer Pharmacy Refill Call Center 04/23/2021,12:17 PM * Telephone Encounter - María Mane [facility] - 04/22/2021 12:34 PM EDT Pending Prescriptions: Disp Refills HYDROcodone-Acetaminophen 5-325 MG Oral T*120 Tab0 Sig: Take 1 Tab by mouth every 6 hours as needed for Pain, Mild. * Telephone Encounter - Maíra Mane RP - 04/22/2021 12:33 PM EDT I have reviewed the patients controlled substance dispensing history in the Prescription Drug Monitoring Program in compliance with the [facility] regulations before prescribing a controlled substance. PDMP checked on 04/22/2021. Pending Prescriptions: Disp Refills HYDROcodone-Acetaminophen 5-325 MG Oral T*120 Tab0 Sig: Take 1 Tab by mouth every 6 hours as needed for Pain, Mild. Last Office/Telemedicine Visit: 04/03/2021 Next Office Visit: 04/24/2021 Scheduled Provider(s): Alex Pinto MD Date medication was last filled: 03/06/21 Date medication is due for refill: 04/03/21 Pharmacy: [id number] [id number] [facility] Is this request for a controlled substance?Yes and Urine Drug Screen not completed Toxicology results: Results for orders placed or performed in visit on 08/26/19 OPIOIDS/BENZO COMPLIANCE MONITORING W/INTERP Result Value COMPLIANCE INTERP (NOTE) URINE DRUG SCREEN RESULT Amphetamine REFER TO CONFIRMATION RESULT (A) Benzodiazepines NEGATIVE Cannabinoids NEGATIVE Cocaine Metabolite NEGATIVE HYDROCODONE REFER TO CONFIRMATION RESULT (A) METHADONE METABOLITE NEGATIVE Morphine / Codeine REFER TO CONFIRMATION RESULT (A) OXYCODONE REFER TO CONFIRMATION RESULT (A) COMMENT THE ABOVE SCREENING RESULTS ARE PRESUMPTIVE AND CAN ONLY BE USED FOR MEDICAL PURPOSES. CONFIRMATORY TESTING IS AVAILABLE UPON REQUEST. Cutoff Concentration URINE VALID INTERP NORMAL CREATININE TIM 221 *Note: Due to a large number of results and/or encounters for the requested time period, some results have not been displayed. A complete set of results can be found in Results Review. Please approve if appropriate. Thanks, María Mane [facility] Clinical Pharmacist Telepharmacy * Telephone Encounter - Em Duarte, tray delivery aide - 04/20/2021 11:33 AM EDT Pending Prescriptions: Disp Refills HYDROcodone-Acetaminophen 5-325 MG Oral T*120 Tab0 Sig: Take 1 Tab by mouth every 6 hours as needed for Pain, Mild. Last Office/Telemedicine Visit: 04/03/2021 Next Office Visit: 04/24/2021 Scheduled Provider(s): Alex Pinto MD If no future appointments scheduled, and last appointment is greater than a year ago, please schedule patient for a follow-up appointment Last date the medication was ordered: 03-06-21 Pharmacy: [id number] [id number] [facility] Is this request for a controlled substance?Yes and Urine Drug Screen completed Urine Drug Screen: Results for orders placed or performed in visit on 08/26/19 OPIOIDS/BENZO COMPLIANCE MONITORING W/INTERP Result Value COMPLIANCE INTERP (NOTE) URINE DRUG SCREEN RESULT Amphetamine REFER TO CONFIRMATION RESULT (A) Benzodiazepines NEGATIVE Cannabinoids NEGATIVE Cocaine Metabolite NEGATIVE HYDROCODONE REFER TO CONFIRMATION RESULT (A) METHADONE METABOLITE NEGATIVE Morphine / Codeine REFER TO CONFIRMATION RESULT (A) OXYCODONE REFER TO CONFIRMATION RESULT (A) COMMENT THE ABOVE SCREENING RESULTS ARE PRESUMPTIVE AND CAN ONLY BE USED FOR MEDICAL PURPOSES. CONFIRMATORY TESTING IS AVAILABLE UPON REQUEST. Cutoff Concentration URINE VALID INTERP NORMAL CREATININE TIM 221 *Note: Due to a large number of results and/or encounters for the requested time period, some results have not been displayed. A complete set of results can be found in Results Review. Patient Phone Numbers Labs: Lab Results Component Value Date/Time CREAT 1.1 (H) 03/09/2021 10:49 AM CREAT 1.01 01/24/2021 CREAT 1.0 05/27/2020 04:51 PM POTASSIUM 4.9 03/09/2021 10:49 AM POTASSIUM 3.9 01/24/2021 POTASSIUM 4.0 05/27/2020 04:51 PM TSH 0.965 [...] Team Description 04/24/2021 Office Visit Internal Medicine Alex Pinto MD [address] [place] [address] [phone] 06/13/2021 Office Visit Cardiology Dulce Merino CRNP [address] [facility] [place] [address] [phone] 07/10/2021 Office Visit Internal Medicine Alex Pinto MD [address] [facility] [place] [address] [phone] 08/08/2021 Nurse Only Ancillary Im, Nurse Annual Wellness [facility] [address] [facility] [place] [address] [phone] Health Maintenance Due Date Last Done Comments Zoster Vaccines (2 of 3) 08/31/2012 07/06/2012 Influenza Vaccine (FLU shot) (#1) 2021 06/22/2020, 06/22/2020, 07/09/2019, Additional history exists CKD GFR USE SMARTSET 73772 09/09/202103/09, 03/05/2021, 01/24/2021, Additional history exists DIABETES-HGBA1C EVERY 6 MONTHS 09/09/2021 03/09/2021, 12/05/2020, 08/10/2020, Additional history exists DIABETES-FOOT EXAM 12/21/2021 12/21/2020, 0 10/19/2019, 01/05/2019, Additional history exists CKD HGB USE SMARTSET 01692 03/09/202203/09, 03/09/2021, 01/24/2021, Additional history exists CKD PHOS USE SMARTSET 39618 03/09/2022 03/09/2021, 0 03/22/2019 DIABETES-EYE EXAM 03/26/2022 [...] Documents on File Type Date Recorded Patient Flatwork Assembler Expl 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
--- OUTSIDE RECORDS SUMMARY | 2023-06-18 03:12 | External Medical Summary | Summary of Care ---
Author Name Unknown Organization [place] [address] Care Team Providers Care Senior Game Developer Name Role Phone Marcela Pinto MD Primary Care Provider + Reason for Visit * Reason Onset Date Comments Test Results 04/06/2021 Encounter Details Date Type Department Care Team Description 04/06/2021 Telephone General Internal Medicine [facility] [address] [facility] [place] [id number] Marcela Pinto MD [address] [place] [address] [phone] Test Results Allergies Active Allergy Reactions Severity Noted Date Comments Valsartan 07/10/2010 Enalapril 05/21/2006 Escitalopram Oxalate Nausea/vomiting 10/11/2009 Nauseated Iodinated Diagnostic Agents Nausea/vomiting 05/2010 IV Contrast Iodine Hives 12/18/2009 IV Contrast Metoprolol Tartrate 11/18/2006 Made pulse low [place] Oil-Black Currant-Vit E 07/10/2010 Verapamil 03/21/2004 Bupropion Hcl 10/30/2009 Makes pt sick in the stomach documented as of this encounter (statuses as of 04/09/2021) Medications Medication Sig Dispensed Refills Start Date [...] hemoglobin A1c goal of less than 7.0% ([facility]) Use as directed. USE TO TEST [...] 0 Active Zafirlukast 20 MG Oral Tablet (ACCOLATE)Indication s:Asthma with severity to be determined TAKE [...] EVERY DAY 90 Tab 1 02/12/2021 Active HYDROcodone-Acetamin ophen 5-325 MG Oral TabletIndications:Ge neralized osteoarthritis Take 1 Tab by mouth every 6 hours as needed for Pain, Mild. 120 Tab 0 03/06/2021 Active Furosemide 40 MG Oral Tablet (Lasix)Indications:C hronic systolic heart failure (HCC) 80 mg in AM, 40 mg in PM 270 Tab 1 03/05/2021 Active Spironolactone 25 MG Oral Tablet (Aldactone)Indicatio ns:Chronic systolic heart failure (HCC) Take 0.5 Tabs by mouth daily. 30 Tab 3 03/05/2021 Active Carvedilol 6.25 MG Oral Tablet (Coreg)Indications:C hronic systolic heart failure (HCC),Paroxysmal atrial fibrillation (HCC) Take 1 Tab by mouth 2 times a day. with food 180 Tab 3 03/05/2021 Active Fluticasone-Salmeter ol 250-50 MCG/DOSE Inhalation Aerosol Powder Breath Activated (Advair Diskus) Inhale 1 Puff by mouth 2 times a day. 0 Active Digoxin 125 MCG Oral Tablet (Lanoxin)Indications :Chronic systolic heart failure (HCC),Paroxysmal atrial fibrillation [...] 04/03/2021 Active methIMAzole 10 MG Oral Tablet (Tapazole)Indication s:Hyperthyroidism Take 1 Tab by mouth 3 times a day. 30 Tab 3 04/03/2021 Active Sulfamethoxazole-Tri methoprim 800-160 MG Oral Tablet (Bactrim DS) Take 1 Tab by mouth once for 1 dose. Until gone 7 Tab 0 04/06/2021 1 documented as of this encounter (statuses as of 04/09/2021) Active Problems Problem Noted Date Chronic systolic [...] as of this encounter (statuses as of 04/09/2021) Resolved Problems Problem Noted Date Resolved Date [...] Hypoxemia 10/08/2011 10/30/2015 Genetic Sleep Disorder Research Other*[id number] 07/25/2011 05/15/2016 Diverticulitis of colon 07/25/2011 01/06/20 [...] as of this encounter (statuses as of 04/09/2021) Immunizations Name Administration Dates Next Due COVID-19 mRNA, LNP-s, No Pre serve, 2-Dose Series ([employer]) 12/22/2020,2020 Hepatitis B, 20+ yrs 10/01/2017,04/21/2017,03/20 Pneumococcal [...] Miscellaneous Notes * Telephone Encounter - Renetta Gu LPN - 04/06/2021 4:10 PM EDT Patient is aware and will comply. Thank you * Telephone Encounter - Marcela Pinto MD - 04/06/2021 3:40 PM EDT Pt has positive urine culture, Ecoli but multi drug resistant bacterial. I have sent a message to ID through Ask a Doc. Awaiting response. Please inform her on hydration, start renal dose of bactrim in the meantime. Script sent. ER if any emergencies in the meantime. documented in this encounter Plan of Treatment Upcoming Encounters Date Type Specialty Care Team Description 06/13/2021 Office Visit Cardiology Dulce Merino CRNP [address] [facility] [place] [address] [phone] 07/10/2021 Office Visit Internal Medicine Marcela Pinto MD [address] [place] [address] [phone] 08/08/2021 Nurse Only Ancillary Im, Nurse Annual Wellness [facility] [address] [facility] [place] [address] [phone] Health Maintenance Due Date Last Done Comments Zoster Vaccines (2 of 3) 08/31/2012 07/06/2012 CKD GFR USE SMARTSET 00128 09/09/202103/09, 03/05/2021, 01/24/2021, Additional history exists DIABETES-HGBA1C EVERY 6 MONTHS 09/09/2021 03/09/2021, 12/05/2020, 08/10/2020, Additional history exists DIABETES-FOOT EXAM 12/21/2021 12/21/2020, 0 10/19/2019, 01/05/2019, Additional history exists CKD HGB USE SMARTSET 88570 03/09/202203/09, 03/09/2021, 01/24/2021, Additional history exists CKD PHOS USE SMARTSET 52023 03/09/2022 03/09/2021, 0 03/22/2019 DIABETES-EYE EXAM 03/26/2022 [...] Documents on File Type Date Recorded Patient Vp Foundation Expl anation Advanced 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
--- OUTSIDE RECORDS SUMMARY | 2023-06-18 03:12 | External Medical Summary | Summary of Care ---
Author Name Unknown Organization [place] [address] Care Team Providers Care Senior Interior Designer Name Role Phone Marcela Pinto MD Primary Care Provider + Reason for Visit * Reason Onset Date Comments Order Request 03/27/2021 Encounter Details Date Type Department Care Team Description 03/27/2021 Telephone General Internal Medicine [facility] [address] [facility] [place] [address] Marcela Pinto MD [address] [place] [address] [phone] Order Request Allergies Active Allergy Reactions Severity Noted Date Comments Valsartan 07/10/2010 Enalapril 05/21/2006 Escitalopram Oxalate Nausea/vomiting 10/11/2009 Nauseated Iodinated Diagnostic Agents Nausea/vomiting 05/2010 IV Contrast Iodine Hives 12/18/2009 IV Contrast Metoprolol Tartrate 11/18/2006 Made pulse low [place] Oil-Black Currant-Vit E 07/10/2010 Verapamil 03/21/2004 Bupropion Hcl 10/30/2009 Makes pt sick in the stomach documented as of this encounter (statuses as of 03/28/2021) Medications Medication Sig Dispensed Refills Start Date [...] OF E11.9 300 Each 1 01/05/2020 Active Blood Glucose Monitoring Suppl (CONTOUR MONITOR) w/Device KIT USE TO TEST BLOOD SUGAR 3 TIMES A DAY FOR DIAGNOSIS CODE OF E11.9 1 Kit 0 01/05/2020 Active ondansetron ODT (ZOFRAN) [address] 8 mg on tongue every 8 hours as needed for Nausea. dissolve on tongue. 0 Active doxycycline 100 MG Tablet Take 100 mg by mouth 2 times a day. RESCUE KIT: Take for Colds. 0 Active methIMAzole 5 MG Oral Tablet (TAPAZOLE) Take 10 mg by mouth daily. 0 07/26/2020 Active Zafirlukast 20 MG Oral Tablet (ACCOLATE)Indication s:Asthma with severity to be determined TAKE 1 TABLET BY MOUTH EVERY DAY 90 Tab 3 08/15/2020 Active Omeprazole 20 MG Oral Capsule Delayed Release (PriLOSEC)Indication s:Ischemic colitis (HCC) TAKE 1 CAPSULE BY MOUTH TWICE A DAY 180 Cap 1 10/05/2020 Active Klor-Con M20 20 MEQ Oral Tablet [...] EVERY DAY 90 Tab 1 02/12/2021 Active Kenzie Contour Test In Vitro Strip (Glucose Blood)Indications:Ty pe 2 diabetes mellitus with hemoglobin A1c goal of less than 7.0% (HCC) USE TO TEST BLOOD SUGAR 3 TIMES A DAY FOR DIAGNOSIS CODE OF E11.9 300 Strip 1 02/12/2021 Active Promethazine HCl 25 MG Oral Tablet (Phenergan)Indicatio ns:Generalized osteoarthritis TAKE 1 TABLET BY MOUTH EVERY 6 HOURS NEEDED FOR NAUSEA 30 Tab 0 02/19/2021 Active HYDROcodone-Acetamin ophen 5-325 MG Oral TabletIndications:Ge [...] Friday only. 30 Tab 11 03/16/2021 Active Amoxicillin 500 MG Oral Capsule (Amoxil) Take 1 Cap by mouth 3 times a day for 3 days. 10 Cap 0 03/27/2021 1 Active documented as of this encounter (statuses as of 03/28/2021) Active Problems Problem Noted Date Chronic systolic [...] as of this encounter (statuses as of 03/28/2021) Resolved Problems Problem Noted Date Resolved Date [...] Hypoxemia 10/08/2011 10/30/2015 Genetic Sleep Disorder Research Other*[id number] 07/25/2011 05/15/2016 Diverticulitis of colon 07/25/2011 01/06/20 [...] as of this encounter (statuses as of 03/28/2021) Immunizations Name Administration Dates Next Due COVID-19 mRNA, LNP-s, No Pre serve, 2-Dose Series ([employer]) 12/22/2020,2020 Hepatitis B, 20+ yrs 10/01/2017,04/21/2017,03/20 Pneumococcal [...] encounter Miscellaneous Notes * Telephone Encounter - Ashley Quinonez OSA - 03/28/2021 9:10 AM EDT Ruma from [facility] returned the phone call and has been notified of the message. Ruma requested that I fax the urine orders to [phone]. Faxed as requested. * Telephone Encounter - Dodie Carson LPN - 03/27/2021 3:57 PM EDT Attempted to call Hilary - no answer Attempted to call Ruma - no answer, left voicemail to call office Attempted [facility] - line busy * Telephone Encounter - Marcela Pinto MD - 03/27/2021 11:25 AM EDT Order is in. Please inform. Also can start Amoxicillin for 3 days while waiting for culture. Script sent. Continue hydration. Thanks. * Telephone Encounter - Vani Pelletier LPN - 03/27/2021 9:57 AM EDT Hilary calling from [facility] states that pt is c/o abd pain, urgency, frequency. Hilary requesting verbal orders for UA. Please call with verbal to [phone] Ruma in the office if unable to reach Hilary. Thank you * Telephone Encounter - Elenita Chavez OSA - 03/27/2021 9:52 AM EDT Female patient age 18+ calling with UTI symptoms of (Call Details not required): Frequency discomfort Please call patient back at: [phone] Any additional information to pass onto the RN: documented in this encounter Plan of Treatment Upcoming Encounters Date Type Specialty Care Team Description 04/03/2021 Office Visit Internal Medicine Marcela Pinto MD [address] [facility] [address] 06/13/2021 Office Visit Cardiology Dulce Merino CRNP [address] [facility] [place] [address] Scheduled Orders Name Type Priority Associated Diagnoses Orde r Schedule URINALYSIS, REFLEX TO MICROSCOPIC Lab Routine Dysuria Expected: 03/27/2021, Expires: 03/27/2022 CULTURE, URINE, QUANTITATIVE Lab Routine Dysuria Expected: 03/27/2021, Expires: 03/27/2022 Health Maintenance Due Date Last Done Comments Zoster Vaccines (2 of 3) 08/31/2012 07/06/2012 CKD GFR USE SMARTSET 18207 09/09/202103/09, 03/05/2021, 01/24/2021, Additional history exists DIABETES-HGBA1C EVERY 6 MONTHS 09/09/2021 03/09/2021, 12/05/2020, 08/10/2020, Additional history exists DIABETES-FOOT EXAM 12/21/2021 12/21/2020, 0 10/19/2019, 01/05/2019, Additional history exists CKD HGB USE SMARTSET 49697 03/09/202203/09, 03/09/2021, 01/24/2021, Additional history exists CKD PHOS USE SMARTSET 17264 03/09/2022 03/09/2021, 0 03/22/2019 DIABETES-EYE EXAM 03/26/2022 [...] as of this encounter Visit Diagnoses Diagnosis Dysuria- Primary documented in this encounter Advance Directives Documents on File Type Date Recorded Patient Dental Coordinator Expl 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
--- OUTSIDE RECORDS SUMMARY | 2023-06-18 03:12 | External Medical Summary ---
Author Name Unknown Address Unknown Organization K01:[facility] [address] [place] [address] Laboratory Report Ordering Provider Test Date Status JOSE A JOHNSON 04/03/2021 16:01:20 Final Observation Date Value Abnormality Reference (Units ) Status Bacteria identified in Unspecified specimen by Culture 04/03/2021 16:01:20 [id number]^ESCHE RICHIA COLI ESBL Abnormal Final Performing Location [facility] [address] [place] [address] Ordering Provider Test Date Status JOSE A JOHNSON 04/03/2021 16:01:20 Final Observation Date Value Abnormality Reference (Units ) Status Ampicillin 04/03/2021 16:01:20 >=32 Resistant Final Ampicillin + Sulbactam 04/03/2021 16:01:20 >=32 Resistant Final Cefazolin 04/03/2021 16:01:20 >=64 Resistant Final Cefepime susceptibility 04/03/2021 16:01:20 >=64 Resistant Final Ceftriaxone suceptibility 04/03/2021 16:01:20 >=64 Resistant Final Ciprofloxacin 04/03/2021 16:01:20 >=4 Resistant Final Performing Location [facility] [address] [place] [address] Ordering Provider Test Date Status JOSE A JOHNSON 04/03/2021 16:01:20 Final Observation Date Value Abnormality Reference (Units ) Status Ertapenem [Susceptibility] 04/03/2021 16:01:20 29 Susceptible Susceptible >21 , Intermediate <=21 , Resistant <=18 Final Performing Location [facility] - [address] [facility] [address]
--- OUTSIDE RECORDS SUMMARY | 2023-06-18 03:12 | External Medical Summary | Summary of Care ---
Author Name Unknown Organization [place] [address] Care Team Providers Care Java Programming Professor Name Role Phone Marcela Pinto MD Primary Care Provider + Encounter Details Date Type Department Care Team Description 04/09/2021 Scan Encounter Unspecified Department <No scans attached> Allergies Active Allergy Reactions Severity Noted Date Comments Valsartan 07/10/2010 Enalapril 05/21/2006 Escitalopram Oxalate Nausea/vomiting 10/11/2009 Nauseated Iodinated Diagnostic Agents Nausea/vomiting 05/2010 IV Contrast Iodine Hives 12/18/2009 IV Contrast Metoprolol Tartrate 11/18/2006 Made pulse low [place] Oil-Black Currant-Vit E 07/10/2010 Verapamil 03/21/2004 Bupropion [...] Hypoxemia 10/08/2011 10/30/2015 Genetic Sleep Disorder Research Other*[id number] 07/25/2011 05/15/2016 Diverticulitis of colon 07/25/2011 01/06/20 [...] mRNA, LNP-s, No Pre serve, 2-Dose Series ([employer]) 12/22/2020,2020 Hepatitis B, 20+ yrs 10/01/2017,04/21/2017,03/20 Pneumococcal [...] Merino CRNP [address] [place] [address] [phone] 07/10/2021 Office Visit Internal Medicine Marcela Pinto MD [address] [place] [address] [phone] 08/08/2021 Nurse Only Ancillary Im, Nurse Annual Wellness [place] [address] [facility] [place] [address] [phone] Health Maintenance Due Date Last Done Comments Zoster Vaccines (2 of 3) 08/31/2012 07/06/2012 CKD GFR USE SMARTSET 46563 09/09/202103/09, 03/05/2021, 01/24/2021, Additional history exists DIABETES-HGBA1C EVERY 6 MONTHS 09/09/2021 03/09/2021, 12/05/2020, 08/10/2020, Additional history exists DIABETES-FOOT EXAM 12/21/2021 12/21/2020, 0 10/19/2019, 01/05/2019, Additional history exists CKD HGB USE SMARTSET 30209 03/09/202203/09, 03/09/2021, 01/24/2021, Additional history exists CKD PHOS USE SMARTSET 38384 03/09/2022 03/09/2021, 0 03/22/2019 DIABETES-EYE EXAM 03/26/2022 [...] Documents on File Type Date Recorded Patient Trust And Estates Attorney Expl anation Advanced 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
--- OUTSIDE RECORDS SUMMARY | 2023-06-18 03:12 | External Medical Summary | Summary of Care ---
Author Name Unknown Organization [place] [address] Care Team Providers Care Measuring Machine Operator Name Role Phone Marcela Pinto MD Primary Care Provider + Reason for Visit * Reason Onset Date Comments Health Maintenance 03/30/2021 Encounter Details Date Type Department Care Team Description 03/30/2021 Telephone General Internal Medicine [facility] [address] [place] [id number] Marcela Pinto MD [address] [place] [address] [phone] Health Maintenance Allergies Active Allergy Reactions Severity Noted Date Comments Valsartan 07/10/2010 Enalapril 05/21/2006 Escitalopram Oxalate Nausea/vomiting 10/11/2009 Nauseated Iodinated Diagnostic Agents Nausea/vomiting 05/2010 IV Contrast Iodine Hives 12/18/2009 IV Contrast Metoprolol Tartrate 11/18/2006 Made pulse low [place] Oil-Black Currant-Vit E 07/10/2010 Verapamil 03/21/2004 Bupropion Hcl 10/30/2009 Makes pt sick in the stomach documented as of this encounter (statuses as of 03/30/2021) Medications Medication Sig Dispensed Refills Start Date [...] as of this encounter (statuses as of 03/30/2021) Active Problems Problem Noted Date Chronic systolic [...] as of this encounter (statuses as of 03/30/2021) Resolved Problems Problem Noted Date Resolved Date [...] Hypoxemia 10/08/2011 10/30/2015 Genetic Sleep Disorder Research Other*[id number] 07/25/2011 05/15/2016 Diverticulitis of colon 07/25/2011 01/06/20 [...] as of this encounter (statuses as of 03/30/2021) Immunizations Name Administration Dates Next Due COVID-19 mRNA, LNP-s, No Pre serve, 2-Dose Series (Boom.fm) 12/22/2020,2020 Hepatitis B, 20+ yrs 10/01/2017,04/21/2017,03/20 Pneumococcal [...] encounter Miscellaneous Notes * Telephone Encounter - Cecily Brennan LPN - 03/30/2021 9:38 AM EDT Care Gaps Comprehensive Care Outreach Last Office/Telemedicine Visit: Last Office/Telemedicine Visit: 03/05/2021 Next Office Visit: Next Office Visit: 04/03/2021 Scheduled Provider(s): Marcela Pinto MD Reviewed Health Maintenance below Health Maintenance Topic Date Due Zoster Vaccines (2 of 3) 08/31/2012 DIABETES-HGBA1C EVERY 6 MONTHS 09/09/2021 CKD GFR USE SMARTSET 30666 09/09/2021 Care Gap Outreach Action Taken: Able to reach: HM above ordered and scheduled as per patient agreement. AWV scheduled documented in this encounter Plan of Treatment Upcoming Encounters Date Type Specialty Care Team Description 04/03/2021 Office Visit Internal Medicine Marcela Pinto MD [address] [place] [address] [phone] 06/13/2021 Office Visit Cardiology Dulce Merino CRNP [address] [facility] [place] [address] [phone] 08/08/2021 Nurse Only Ancillary Im, [facility] [address] [place] [address] [phone] Health Maintenance Due Date Last Done Comments Zoster Vaccines (2 of 3) 08/31/2012 07/06/2012 CKD GFR USE SMARTSET 13798 09/09/202103/09, 03/05/2021, 01/24/2021, Additional history exists DIABETES-HGBA1C EVERY 6 MONTHS 09/09/2021 03/09/2021, 12/05/2020, 08/10/2020, Additional history exists DIABETES-FOOT EXAM 12/21/2021 12/21/2020, 0 10/19/2019, 01/05/2019, Additional history exists CKD HGB USE SMARTSET 99775 03/09/202203/09, 03/09/2021, 01/24/2021, Additional history exists CKD PHOS USE SMARTSET 92799 03/09/2022 03/09/2021, 0 03/22/2019 DIABETES-EYE EXAM 03/26/2022 [...] Documents on File Type Date Recorded Patient Pricing Strategist Expl anation Advanced 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
--- OUTSIDE RECORDS SUMMARY | 2023-06-18 03:12 | External Medical Summary | Summary of Care ---
Author Name Unknown Organization [place] [address] Care Team Providers Care Inside Sales Advisor Name Role Phone Marcela Pinto MD Primary Care Provider + Reason for Visit * Reason Onset Date Comments Test Results 04/06/2021 Encounter Details Date Type Department Care Team Description 04/06/2021 Telephone General Internal Medicine [facility] [address] [facility] [place] [id number] Marcela Pinto MD [address] [place], [place] [id number] Test Results Allergies Active Allergy Reactions Severity Noted Date Comments Valsartan 07/10/2010 Enalapril 05/21/2006 Escitalopram Oxalate Nausea/vomiting 10/11/2009 Nauseated Iodinated Diagnostic Agents Nausea/vomiting 05/2010 IV Contrast Iodine Hives 12/18/2009 IV Contrast Metoprolol Tartrate 11/18/2006 Made pulse low [place] Oil-Black Currant-Vit E 07/10/2010 Verapamil 03/21/2004 Bupropion Hcl 10/30/2009 Makes pt sick in the stomach documented as of this encounter (statuses as of 04/06/2021) Medications Medication Sig Dispensed Refills Start Date [...] dose. Until gone 7 Tab 0 04/06/2021 04/06/2021 Active documented as of this encounter (statuses as of 04/06/2021) Active Problems Problem Noted Date Chronic systolic [...] as of this encounter (statuses as of 04/06/2021) Resolved Problems Problem Noted Date Resolved Date [...] Hypoxemia 10/08/2011 10/30/2015 Genetic Sleep Disorder Research Other*[id number] 07/25/2011 05/15/2016 Diverticulitis of colon 07/25/2011 01/06/20 [...] as of this encounter (statuses as of 04/06/2021) Immunizations Name Administration Dates Next Due COVID-19 mRNA, LNP-s, No Pre serve, 2-Dose Series (People[employer]atter) 12/22/2020,2020 Hepatitis B, 20+ yrs 10/01/2017,04/21/2017,03/20 Pneumococcal [...] Visit Cardiology Dulce Merino CRNP [address] [facility] [place] [address] [phone] 07/10/2021 Office Visit Internal Medicine Marcela Pinto MD [address] [facility] [place] [address] [phone] 08/08/2021 Nurse Only Ancillary Im, Nurse Annual Wellness [facility] [address] [facility] [place] [address] [phone] Health Maintenance Due Date Last Done Comments Zoster Vaccines (2 of 3) 08/31/2012 07/06/2012 CKD GFR USE SMARTSET 43914 09/09/202103/09, 03/05/2021, 01/24/2021, Additional history exists DIABETES-HGBA1C EVERY 6 MONTHS 09/09/2021 03/09/2021, 12/05/2020, 08/10/2020, Additional history exists DIABETES-FOOT EXAM 12/21/2021 12/21/2020, 0 10/19/2019, 01/05/2019, Additional history exists CKD HGB USE SMARTSET 37045 03/09/202203/09, 03/09/2021, 01/24/2021, Additional history exists CKD PHOS USE SMARTSET 85852 03/09/2022 03/09/2021, 0 03/22/2019 DIABETES-EYE EXAM 03/26/2022 [...] Documents on File Type Date Recorded Patient Bank Analyst Expl 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
--- OUTSIDE RECORDS SUMMARY | 2023-06-18 03:12 | External Medical Summary | Summary of Care ---
Author Name Unknown Organization [place] [address] Care Team Providers Care Arcade Attendant Name Role Phone Marcela Pinto MD Primary Care Provider + Encounter Details Date Type Department Care Team Description 03/29/2021 Orders Only General Internal Medicine [facility] [place] [address] [facility] [place] [address] Marcela Pinto MD [address] [facility] [place] [address] [phone] Allergies Active Allergy Reactions Severity Noted Date Comments Valsartan 07/10/2010 Enalapril 05/21/2006 Escitalopram Oxalate Nausea/vomiting 10/11/2009 Nauseated Iodinated Diagnostic Agents Nausea/vomiting 05/2010 IV Contrast Iodine Hives 12/18/2009 IV Contrast Metoprolol Tartrate 11/18/2006 Made pulse low [place] Oil-Black Currant-Vit E 07/10/2010 Verapamil 03/21/2004 Bupropion Hcl 10/30/2009 Makes pt sick in the stomach documented as of this encounter (statuses as of 03/29/2021) Medications Medication Sig Dispensed Refills Start Date [...] as of this encounter (statuses as of 03/29/2021) Active Problems Problem Noted Date Chronic systolic [...] as of this encounter (statuses as of 03/29/2021) Resolved Problems Problem Noted Date Resolved Date [...] Hypoxemia 10/08/2011 10/30/2015 Genetic Sleep Disorder Research Other*[id number] 07/25/2011 05/15/2016 Diverticulitis of colon 07/25/2011 01/06/20 [...] as of this encounter (statuses as of 03/29/2021) Immunizations Name Administration Dates Next Due COVID-19 mRNA, LNP-s, No Pre serve, 2-Dose Series (Flipiture) 12/22/2020,2020 Hepatitis B, 20+ yrs 10/01/2017,04/21/2017,03/20 Pneumococcal [...] Internal Medicine Marcela Pinto MD [address] [place] [address] [phone] 06/13/2021 Office Visit Cardiology Dulce Merino CRNP [address] [place] [address] Health Maintenance Due Date Last Done Comments Zoster Vaccines (2 of 3) 08/31/2012 07/06/2012 CKD GFR USE SMARTSET 32188 09/09/202103/09, 03/05/2021, 01/24/2021, Additional history exists DIABETES-HGBA1C EVERY 6 MONTHS 09/09/2021 03/09/2021, 12/05/2020, 08/10/2020, Additional history exists DIABETES-FOOT EXAM 12/21/2021 12/21/2020, 0 10/19/2019, 01/05/2019, Additional history exists CKD HGB USE SMARTSET 60475 03/09/202203/09, 03/09/2021, 01/24/2021, Additional history exists CKD PHOS USE SMARTSET 44408 03/09/2022 03/09/2021, 0 03/22/2019 DIABETES-EYE EXAM 03/26/2022 [...] Name Priority Date/Time Associated Diagnosis Comments URINALYSIS, REFLEX TO MICROSCOPIC Routine 03/28/2021 documented in this encounter Results * URINALYSIS, REFLEX TO MICROSCOPIC (03/28/2021) PROTEIN, UA-OUTSIDE LAB NEG NEG MG/DL OUTS [facility] (SEE SCANNED REPORT) Specimen Urine Narrative Performed At OUTSIDE LAB (SEE SCANNED REPORT) documented in this encounter Advance Directives Documents on File Type Date Recorded Patient Sampler First Expl anation Advanced 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
--- OUTSIDE RECORDS SUMMARY | 2023-06-18 03:12 | External Medical Summary | Summary of Care ---
Author Name Unknown Organization [place] [address] Care Team Providers Care Export Sales Assistant Name Role Phone Marcela Pinto MD Primary Care Provider + Reason for Visit * Reason Onset Date Comments case management 04/02/2021 week #5 hosp dc / UTI follow up Encounter Details Date Type Department Care Team Description 04/02/2021 Pharmacy Data Analyst Telephone Care Coordination [address], [place] [id number] Sigrid Montano RN [address] [place] [address] [phone] case management (week #5 hosp dc / UTI fol... Allergies Active Allergy Reactions Severity Noted Date Comments Valsartan 07/10/2010 Enalapril 05/21/2006 Escitalopram Oxalate Nausea/vomiting 10/11/2009 Nauseated Iodinated Diagnostic Agents Nausea/vomiting 05/2010 IV Contrast Iodine Hives 12/18/2009 IV Contrast Metoprolol Tartrate 11/18/2006 Made pulse low [place] Oil-Black Currant-Vit E 07/10/2010 Verapamil 03/21/2004 Bupropion Hcl 10/30/2009 Makes pt sick in the stomach documented as of this encounter (statuses as of 04/02/2021) Medications Medication Sig Dispensed Refills Start Date [...] OF E11.9 300 Strip 1 02/12/2021 Active HYDROcodone-Acetamin ophen 5-325 MG [...] Friday only. 30 Tab 11 03/16/2021 Active Promethazine HCl 25 MG Oral Tablet (Phenergan)Indicatio ns:Generalized osteoarthritis TAKE 1 TABLET BY MOUTH EVERY 6 HOURS NEEDED FOR NAUSEA 30 Tab 0 04/02/2021 Active documented as of this encounter (statuses as of 04/02/2021) Active Problems Problem Noted Date Chronic systolic [...] as of this encounter (statuses as of 04/02/2021) Resolved Problems Problem Noted Date Resolved Date [...] Hypoxemia 10/08/2011 10/30/2015 Genetic Sleep Disorder Research Other*[id number] 07/25/2011 05/15/2016 Diverticulitis of colon 07/25/2011 01/06/20 [...] as of this encounter (statuses as of 04/02/2021) Immunizations Name Administration Dates Next Due COVID-19 mRNA, LNP-s, No Pre serve, 2-Dose Series (BitePal) 12/22/2020,2020 Hepatitis B, 20+ yrs 10/01/2017,04/21/2017,03/20 Pneumococcal [...] Telephone Encounter - Sigrid Montano RN - 04/02/2021 4:22 PM EDT [facility] 02-24-21 to 03-02-21 with acute on chronic systolic heart failure. Discharged home alone with [facility]. 03/27/21 -- phone call from [facility] Nursing UTI sxs UA ordrs and amox x 3 days UA normal, culture showed mix organisms with no sensitivities performed HERMAN #5 and UTI F/U started amoxicillin on Friday, today is last day urinary symptoms: I am going quite a bit, it, it is not hurting down near pubic bone/burning that has resolved. States she has never had blood in urine. Never had pain/urgency that she could not maketo toilet in time. Denies any fever. Breathing is baseline, wearing oxygen, sob with exertion Daily weight today 244.8 on home scale Blood sugars: this morning 147, denies any >200 or <70 Not much LE edema Occasional nausea, no vomiting Using miralax occasionally for bowels but otherwise normal BM with no blood. States that home health nurse was in this morning to assess her and had no concerns. Reviewed role of CM and provided contact information Reviewed upcoming appts -- sees PCP tomorrow Reviewed Red Flag Symptoms: increased edema/weight gain/decreased urine output, increased sob, blood sugars >200 or <70 more than twice in one week Discussed HF symptom mgmt. Follow up in 2-3 months or as needed Sigrid Montano RN MSN [facility] Medical Home Float Pharmacy Data Analyst Covering for Cici Gama RN [facility] documented in this encounter Plan of Treatment Upcoming Encounters Date Type Specialty Care Team Description 04/03/2021 Office Visit Internal Medicine Marcela Pinto MD [address] [facility] [place] [address] [phone] 06/13/2021 Office Visit Cardiology Angelique, NIECY [place] [address] [place] [address] [phone] 08/08/2021 Nurse Only Ancillary Im, Nurse Annual Wellness [place] [address] [place] [address] [phone] Health Maintenance Due Date Last Done Comments Zoster Vaccines (2 of 3) 08/31/2012 07/06/2012 CKD GFR USE SMARTSET 51099 09/09/202103/09, 03/05/2021, 01/24/2021, Additional history exists DIABETES-HGBA1C EVERY 6 MONTHS 09/09/2021 03/09/2021, 12/05/2020, 08/10/2020, Additional history exists DIABETES-FOOT EXAM 12/21/2021 12/21/2020, 0 10/19/2019, 01/05/2019, Additional history exists CKD HGB USE SMARTSET 37425 03/09/202203/09, 03/09/2021, 01/24/2021, Additional history exists CKD PHOS USE SMARTSET 23801 03/09/2022 03/09/2021, 0 03/22/2019 DIABETES-EYE EXAM 03/26/2022 [...] Documents on File Type Date Recorded Patient Loader Expl anation Advanced 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
--- OUTSIDE RECORDS SUMMARY | 2023-06-18 03:12 | External Medical Summary | Summary of Care ---
Author Name Unknown Organization [place] [address] Care Team Providers Care Perinatal Instructor Name Role Phone Marcela Pinto MD Primary Care Provider + Encounter Details Date Type Department Care Team Description 03/28/2021 Result Scan General Internal Medicine [facility] [address] [place] [address] Marcela Pinto MD [address] [place] [address] [phone] <No scans attached> Allergies Active Allergy Reactions Severity Noted Date Comments Valsartan 07/10/2010 Enalapril 05/21/2006 Escitalopram Oxalate Nausea/vomiting 10/11/2009 Nauseated Iodinated Diagnostic Agents Nausea/vomiting 05/2010 IV Contrast Iodine Hives 12/18/2009 IV Contrast Metoprolol Tartrate 11/18/2006 Made pulse low [place] Oil-Black Currant-Vit E 07/10/2010 Verapamil 03/21/2004 Bupropion [...] Hypoxemia 10/08/2011 10/30/2015 Genetic Sleep Disorder Research Other*[id number] 07/25/2011 05/15/2016 Diverticulitis of colon 07/25/2011 01/06/20 [...] mRNA, LNP-s, No Pre serve, 2-Dose Series (Om[employer]Pay) 12/22/2020,2020 Hepatitis B, 20+ yrs 10/01/2017,04/21/2017,03/20 Pneumococcal [...] Internal Medicine Marcela Pinto MD [address] [place] [address] [phone] 06/13/2021 Office Visit Cardiology Dulce Merino CRNP [address] [place] [address] [phone] Health Maintenance Due Date Last Done Comments Zoster Vaccines (2 of 3) 08/31/2012 07/06/2012 CKD GFR USE SMARTSET 21529 09/09/202103/09, 03/05/2021, 01/24/2021, Additional history exists DIABETES-HGBA1C EVERY 6 MONTHS 09/09/2021 03/09/2021, 12/05/2020, 08/10/2020, Additional history exists DIABETES-FOOT EXAM 12/21/2021 12/21/2020, 0 10/19/2019, 01/05/2019, Additional history exists CKD HGB USE SMARTSET 92532 03/09/202203/09, 03/09/2021, 01/24/2021, Additional history exists CKD PHOS USE SMARTSET 60721 03/09/2022 03/09/2021, 0 03/22/2019 DIABETES-EYE EXAM 03/26/2022 [...] Procedure Name Priority Date/Time Associated Diagnosis Comments OUTSIDE LAB RESULTS 03/28/2021 documented in this encounter Results * OUTSIDE LAB RESULTS (03/28/2021) Specimen Narrative Performed At documented in this encounter Advance Directives Documents on File Type Date Recorded Patient Egg Tester Expl 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
--- OUTSIDE RECORDS SUMMARY | 2023-06-18 03:12 | External Medical Summary | Summary of Care ---
Author Name Unknown Organization [place] [address] Care Team Providers Care Salesperson Sheet Music Name Role Phone Alex Pinto MD Primary Care Provider + Reason for Visit * Reason Comments eRx-Medication Refill Encounter Details Date Type Department Care Team Description 04/02/2021 Refill General Internal Medicine [facility] [address] [place] [address] Alex Pinto MD [address] [place] [address] [phone] Ischemic colitis (HCC) Allergies Active Allergy Reactions Severity Noted Date Comments Valsartan 07/10/2010 Enalapril 05/21/2006 Escitalopram Oxalate Nausea/vomiting 10/11/2009 Nauseated Iodinated Diagnostic Agents Nausea/vomiting 05/2010 IV Contrast Iodine Hives 12/18/2009 IV Contrast Metoprolol Tartrate 11/18/2006 Made pulse low [place] Oil-Black Currant-Vit E 07/10/2010 Verapamil 03/21/2004 Bupropion Hcl 10/30/2009 Makes pt sick in the stomach documented as of this encounter (statuses as of 04/03/2021) Medications Medication Sig Dispensed Refills Start Date [...] OF E11.9 300 Each 1 0 Active Blood Glucose Monitoring Suppl (CONTOUR MONITOR) w/Device KIT USE TO TEST BLOOD SUGAR 3 TIMES A DAY FOR DIAGNOSIS CODE OF E11.9 1 Kit 0 0 Active ondansetron ODT (ZOFRAN) [address] 8 mg on tongue every 8 hours as needed for Nausea. dissolve on tongue. 0 Active doxycycline 100 MG Tablet Take 100 mg by mouth 2 times a day. RESCUE KIT: Take for Colds. 0 Active methIMAzole 5 MG Oral Tablet (TAPAZOLE) Take 10 mg by mouth daily. 0 0 Active Zafirlukast 20 MG Oral Tablet (ACCOLATE)Indicatio ns:Asthma with severity to be determined TAKE 1 TABLET BY MOUTH EVERY DAY 90 Tab 3 0 Active Klor-Con M20 20 MEQ Oral Tablet Extended Release (Potassium Chloride Annalisa ER)Indications:HTN, goal below 140/90 TAKE 1 TABLET BY MOUTH EVERY DAY 90 Tab 1 1 Active Combivent Respimat 20-100 MCG/ACT Inhalation Aerosol Solution (Ipratropium-[place] rol)Indications:Ast hma with severity to be determined,COPD, moderate ([facility]) TAKE 1 PUFF BY [...] EVERY DAY 90 Tab 1 1 Active Kenzie Contour Test In Vitro Strip (Glucose Blood)Indications:T ype 2 diabetes mellitus with hemoglobin A1c goal of less than 7.0% (HCC) USE TO TEST BLOOD SUGAR 3 TIMES A DAY FOR DIAGNOSIS CODE OF E11.9 300 Strip 1 1 Active HYDROcodone-Acetami nophen 5-325 MG [...] Friday only. 30 Tab 11 1 Active Promethazine HCl 25 MG Oral Tablet (Phenergan)Indicati ons:Generalized osteoarthritis TAKE 1 TABLET BY MOUTH EVERY 6 HOURS NEEDED FOR NAUSEA 30 Tab 0 1 Active Omeprazole 20 MG Oral Capsule Delayed Release (PriLOSEC)Indicatio ns:Ischemic colitis (HCC) TAKE 1 CAPSULE BY MOUTH TWICE A DAY 180 Cap 1 1 Active Omeprazole 20 MG Oral Capsule Delayed Release (PriLOSEC)Indicatio ns:Ischemic colitis (HCC) TAKE 1 CAPSULE BY MOUTH TWICE A DAY 180 Cap 1 0 04/03/20 21 Discontinued documented as of this encounter (statuses as of 04/03/2021) Active Problems Problem Noted Date Chronic systolic [...] as of this encounter (statuses as of 04/03/2021) Resolved Problems Problem Noted Date Resolved Date [...] Hypoxemia 10/08/2011 10/30/2015 Genetic Sleep Disorder Research Other*[id number] 07/25/2011 05/15/2016 Diverticulitis of colon 07/25/2011 01/06/20 [...] as of this encounter (statuses as of 04/03/2021) Immunizations Name Administration Dates Next Due COVID-19 mRNA, LNP-s, No Pre serve, 2-Dose Series ([employer]) 12/22/2020,2020 Hepatitis B, 20+ yrs 10/01/2017,04/21/2017,03/20 Pneumococcal [...] encounter Miscellaneous Notes * Telephone Encounter - Butch Dawson RPh - 04/03/2021 10:00 AM EDT Signed Prescriptions: Disp Refills Omeprazole 20 MG Oral Capsule Delayed Rele*180 Cap1 Sig: TAKE 1 CAPSULE BY MOUTH TWICE A DAYAuthorizing Provider: ALEX PINTO User: AUSTIN DAWSON documented in this encounter Plan of Treatment Upcoming Encounters Date Type Specialty Care Team Description 04/03/2021 Office Visit Internal Medicine Alex Pinto MD [address] [place] [address] [phone] 06/13/2021 Office Visit Cardiology Dulce Merino CRNP [address] [facility] [place] [address] [phone] 08/08/2021 Nurse Only Ancillary Im, Nurse Annual Wellness [facility] [address] [place] [address] [phone] Health Maintenance Due Date Last Done Comments Zoster Vaccines (2 of 3) 08/31/2012 07/06/2012 CKD GFR USE SMARTSET 63783 09/09/202103/09, 03/05/2021, 01/24/2021, Additional history exists DIABETES-HGBA1C EVERY 6 MONTHS 09/09/2021 03/09/2021, 12/05/2020, 08/10/2020, Additional history exists DIABETES-FOOT EXAM 12/21/2021 12/21/2020, 0 10/19/2019, 01/05/2019, Additional history exists CKD HGB USE SMARTSET 35549 03/09/202203/09, 03/09/2021, 01/24/2021, Additional history exists CKD PHOS USE SMARTSET 50182 03/09/2022 03/09/2021, 0 03/22/2019 DIABETES-EYE EXAM 03/26/2022 [...] Documents on File Type Date Recorded Patient Product Marketing Consultant Expl 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
--- OUTSIDE RECORDS SUMMARY | 2023-06-18 03:12 | External Medical Summary | Summary of Care ---
Author Name Unknown Organization [place] [address] Care Team Providers Care Tool Setter Apprentice Name Role Phone Marcela Pinto MD Primary Care Provider + Encounter Details Date Type Department Care Team Description 04/10/2021 Scan Encounter Unspecified Department <No scans attached> Allergies Active Allergy Reactions Severity Noted Date Comments Valsartan 07/10/2010 Enalapril 05/21/2006 Escitalopram Oxalate Nausea/vomiting 10/11/2009 Nauseated Iodinated Diagnostic Agents Nausea/vomiting 05/2010 IV Contrast Iodine Hives 12/18/2009 IV Contrast Metoprolol Tartrate 11/18/2006 Made pulse low [place] Oil-Black Currant-Vit E 07/10/2010 Verapamil 03/21/2004 Bupropion [...] hemoglobin A1c goal of less than 7.5% ([facility]) Take 2 mg by mouth daily before [...] Hypoxemia 10/08/2011 10/30/2015 Genetic Sleep Disorder Research Other*[id number] 07/25/2011 05/15/2016 Diverticulitis of colon 07/25/2011 01/06/20 [...] mRNA, LNP-s, No Pre serve, 2-Dose Series ([employer]) 12/22/2020,2020 Hepatitis B, 20+ yrs 10/01/2017,04/21/2017,03/20 Pneumococcal [...] Merino CRNP [address] [place] [address] [phone] 07/10/2021 Office Visit Internal Medicine Marcela Pinto MD [address] [place] [address] [phone] 08/08/2021 Nurse Only Ancillary Im, Nurse Annual Wellness [place] [address] [facility] [place] [address] [phone] Health Maintenance Due Date Last Done Comments Zoster Vaccines (2 of 3) 08/31/2012 07/06/2012 CKD GFR USE SMARTSET 92899 09/09/202103/09, 03/05/2021, 01/24/2021, Additional history exists DIABETES-HGBA1C EVERY 6 MONTHS 09/09/2021 03/09/2021, 12/05/2020, 08/10/2020, Additional history exists DIABETES-FOOT EXAM 12/21/2021 12/21/2020, 0 10/19/2019, 01/05/2019, Additional history exists CKD HGB USE SMARTSET 96244 03/09/202203/09, 03/09/2021, 01/24/2021, Additional history exists CKD PHOS USE SMARTSET 27085 03/09/2022 03/09/2021, 0 03/22/2019 DIABETES-EYE EXAM 03/26/2022 [...] on File Type Date Recorded Patient Physical Therapy Instructor Expl 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
--- OUTSIDE RECORDS SUMMARY | 2023-06-18 03:12 | External Medical Summary | Summary of Care ---
Author Name Unknown Organization [place] [address] Care Team Providers Care Wrecker Operator Name Role Phone Alex Pinto MD Primary Care Provider + Reason for Visit * Reason Comments eRx-Medication Refill Encounter Details Date Type Department Care Team Description 03/31/2021 Refill General Internal Medicine [facility] [address] [place] [address] Alex Pinto MD [address] [place] [address] [phone] GENERAL OSTEOARTHROSIS Allergies Active Allergy Reactions Severity Noted Date Comments Valsartan 07/10/2010 Enalapril 05/21/2006 Escitalopram Oxalate Nausea/vomiting 10/11/2009 Nauseated Iodinated Diagnostic Agents Nausea/vomiting 05/2010 IV Contrast Iodine Hives 12/18/2009 IV Contrast Metoprolol Tartrate 11/18/2006 Made pulse low [place] Oil-Black Currant-Vit E 07/10/2010 Verapamil 03/21/2004 Bupropion [...] EVERY DAY 90 Tab 3 0 Active Omeprazole 20 MG Oral Capsule Delayed Release (PriLOSEC)Indicatio ns:Ischemic colitis (HCC) TAKE 1 CAPSULE BY MOUTH TWICE A DAY 180 Cap 1 0 Active Klor-Con M20 20 MEQ Oral [...] than 7.0% ([facility]) USE TO TEST BLOOD SUGAR 3 TIMES [...] FOR NAUSEA 30 Tab 0 1 Active Promethazine HCl 25 MG Oral Tablet (Phenergan)Indicati ons:Generalized osteoarthritis TAKE 1 TABLET BY MOUTH EVERY 6 HOURS NEEDED FOR NAUSEA 30 Tab 0 1 04/02/20 21 Discontinued documented as of this encounter [...] Hypoxemia 10/08/2011 10/30/2015 Genetic Sleep Disorder Research Other*[id number] 07/25/2011 05/15/2016 Diverticulitis of colon 07/25/2011 01/06/20 [...] mRNA, LNP-s, No Pre serve, 2-Dose Series ([employer]) 12/22/2020,2020 Hepatitis B, 20+ yrs 10/01/2017,04/21/2017,03/20 Pneumococcal [...] Telephone Encounter - Alex Pinto MD - 04/02/2021 3:54 PM EDT Signed Prescriptions: Disp Refills Promethazine HCl 25 MG Oral Tablet (Phener*30 Tab 0 Sig: TAKE 1 TABLET BY MOUTH EVERY 6 HOURS NEEDED FOR NAUSEA Authorizing Provider: ALEX PINTO * Telephone Encounter - Missy Carbajal [facility] - 04/02/2021 12:04 PM EDT Pending Prescriptions: Disp Refills Promethazine HCl 25 MG Oral Tablet [Pharma*30 Tab 0 Sig: TAKE 1 TABLET BY MOUTH EVERY 6 HOURS NEEDED FOR NAUSEA * Telephone Encounter - Missy Carbajal [facility] - 04/02/2021 12:04 PM EDT Refill pharmacists currently not authorized to approve refills for this class of medication per refill protocol. Please approve if appropriate. Thank you, Missy Carbajal, VadimD. Clinical Pharmacist Pharmacy Refill Call Center 04/02/2021, 12:04 PM Pending Prescriptions: Disp Refills Promethazine HCl 25 MG Oral Tablet [Pharma*30 Tab 0 Sig: TAKE 1 TABLET BY MOUTH EVERY 6 HOURS NEEDED FOR NAUSEA Last Office/Telemedicine Visit: 03/05/2021 Next Office Visit: 04/03/2021 Scheduled Provider(s): Alex Pinto MD If no future appointments scheduled, and last appointment is greater than a year ago, please schedule patient for a follow-up appointment Last date the medication was ordered: 02/19/21 Pharmacy: [id number] [address] [facility] Is this request for a controlled substance?No [...] Internal Medicine Alex Pinto MD [address] [place] [address] [phone] 06/13/2021 Office Visit Cardiology Dulce Merino CRNP [address] [facility] [place] [address] [phone] 08/08/2021 Nurse Only Ancillary Im, Nurse Annual Wellness [place] [address] [place] [address] [phone] Health Maintenance Due Date Last Done Comments Zoster Vaccines (2 of 3) 08/31/2012 07/06/2012 CKD GFR USE SMARTSET 52707 09/09/202103/09, 03/05/2021, 01/24/2021, Additional history exists DIABETES-HGBA1C EVERY 6 MONTHS 09/09/2021 03/09/2021, 12/05/2020, 08/10/2020, Additional history exists DIABETES-FOOT EXAM 12/21/2021 12/21/2020, 0 10/19/2019, 01/05/2019, Additional history exists CKD HGB USE SMARTSET 10871 03/09/202203/09, 03/09/2021, 01/24/2021, Additional history exists CKD PHOS USE SMARTSET 45344 03/09/2022 03/09/2021, 0 03/22/2019 DIABETES-EYE EXAM 03/26/2022 [...] Documents on File Type Date Recorded Patient Shipping Assistant Expl 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
--- OUTSIDE RECORDS SUMMARY | 2023-06-18 03:13 | External Medical Summary | Summary of Care ---
Author Name Unknown Organization [place] [address] Care Team Providers Care Nursing Unit Clerk Name Role Phone Marcela Pinto MD Primary Care Provider + Reason for Visit * Reason Onset Date Comments Test Results 03/16/2021 Encounter Details Date Type Department Care Team Description 03/16/2021 Telephone Cardiology, [facility] [address] [facility] [id number] Hammad Lopez, [address] [facility] [place] [id number] Test Results Allergies Active Allergy Reactions Severity Noted Date Comments Valsartan 07/10/2010 Enalapril 05/21/2006 Escitalopram Oxalate Nausea/vomiting 10/11/2009 Nauseated Iodinated Diagnostic Agents Nausea/vomiting 05/2010 IV Contrast Iodine Hives 12/18/2009 IV Contrast Metoprolol Tartrate 11/18/2006 Made pulse low [place] Oil-Black Currant-Vit E 07/10/2010 Verapamil 03/21/2004 Bupropion Hcl 10/30/2009 Makes pt sick in the stomach documented as of this encounter (statuses as of 03/16/2021) Medications Medication Sig Dispensed Refills Start Date [...] 07/26/2020 Active Zafirlukast 20 MG Oral Tablet (ACCOLATE)Indicatio [...] FOR NAUSEA 30 Tab 0 02/19/2021 Active HYDROcodone-Acetami nophen 5-325 MG Oral TabletIndications:G eneralized osteoarthritis Take 1 Tab by mouth every 6 hours as needed for Pain, Mild. 120 Tab 0 03/06/2021 Active Furosemide 40 MG Oral Tablet (Lasix)Indications: [...] Friday only. 30 Tab 11 03/16/2021 Active Digoxin 125 MCG Oral Tablet (Lanoxin)Indication s:Chronic systolic heart failure (HCC),Paroxysmal atrial fibrillation (HCC) Take 1 Tab by mouth daily. 30 Tab 11 03/05/2021 1 Discontinu ed(Refill) documented as of this encounter (statuses as of 03/16/2021) Active Problems Problem Noted Date Chronic systolic [...] as of this encounter (statuses as of 03/16/2021) Resolved Problems Problem Noted Date Resolved Date [...] Hypoxemia 10/08/2011 10/30/2015 Genetic Sleep Disorder Research Other*[id number] 07/25/2011 05/15/2016 Diverticulitis of colon 07/25/2011 01/06/20 [...] as of this encounter (statuses as of 03/16/2021) Immunizations Name Administration Dates Next Due COVID-19 mRNA, LNP-s, No Pre serve, 2-Dose Series ([employer]) 12/22/2020,2020 Hepatitis B, 20+ yrs 10/01/2017,04/21/2017,03/20 Pneumococcal [...] Telephone Encounter - Ida Meza RN - 03/16/2021 10:58 AM EDT Called, spoke with patient. Patient verbalizing understanding of given results/instruction per message below and will comply. Orders placed/med list updated. Information/lab order faxed to [facility]. * Telephone Encounter - dIa Meza RN - 03/16/2021 10:54 AM EDT ----- Message from Hammad Lopez DO sent at 03/15/2021 4:26 PM EDT ----- Reduced digoxin to 4 days per week, Friday, Friday, Friday, Friday. Repeat digoxin level in 1 month. documented in this encounter Plan of Treatment Upcoming Encounters Date Type Specialty Care Team Description 04/03/2021 Office Visit Internal Medicine Marcela Pinto MD [address] [facility] [place] [address] [phone] 06/13/2021 Office Visit Cardiology Dulce Merino CRNP [address] [place] [address] Scheduled Orders Name Type Priority Associated Diagnoses Orde r Schedule DIGOXIN LEVEL Lab Routine Chronic systolic heart failure (HCC) Paroxysmal atrial fibrillation (HCC) Expected: 04/15/2021 (Approximate), Expires: 03/16/2022 Health Maintenance Due Date Last Done Comments Zoster Vaccines (2 of 3) 08/31/2012 07/06/2012 DIABETES-EYE EXAM 08/07/2021 08/07/2020, , 09/14/2018, Additional history exists CKD GFR USE SMARTSET 36243 09/09/202103/09, 03/05/2021, 01/24/2021, Additional history exists DIABETES-HGBA1C EVERY 6 MONTHS 09/09/2021 03/09/2021, 12/05/2020, 08/10/2020, Additional history exists DIABETES-FOOT EXAM 12/21/2021 12/21/2020, 0 10/19/2019, 01/05/2019, Additional history exists CKD HGB USE SMARTSET 01262 03/09/202203/09, 03/09/2021, 01/24/2021, Additional history exists CKD PHOS USE SMARTSET 36988 03/09/2022 03/09/2021, 0 03/22/2019 Dexa Scan 08/08/2025 08/08/2020, 04/13, 06/19/2010, Additional [...] Documents on File Type Date Recorded Patient Training Developer Expl 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
--- OUTSIDE RECORDS SUMMARY | 2023-06-18 03:13 | External Medical Summary | Summary of Care ---
Author Name Unknown Organization [place] [address] Care Team Providers Care Stem Roller Name Role Phone Marcela Pinto MD Primary Care Provider + Encounter Details Date Type Department Care Team Description 03/16/2021 Meter/Relay CraftsmanPower Plant [facility]visor[facility] [place] [address] [place] [address] Geri Morillo, BIJAL [address] [place] [address] Chronic systolic heart failure (HCC)* Allergies Active Allergy Reactions Severity Noted Date Comments Valsartan 07/10/2010 Enalapril 05/21/2006 Escitalopram Oxalate Nausea/vomiting 10/11/2009 Nauseated Iodinated Diagnostic Agents Nausea/vomiting 05/2010 IV Contrast Iodine Hives 12/18/2009 IV Contrast Metoprolol Tartrate 11/18/2006 Made pulse low [place] Oil-Black Currant-Vit E 07/10/2010 Verapamil 03/21/2004 [...] less than 7.0% ([facility]) USE TO TEST BLOOD SUGAR [...] mouth daily. 30 Tab 3 03/05/2021 Active Digoxin 125 MCG Oral Tablet (Lanoxin)Indications :Chronic systolic heart failure (HCC),Paroxysmal atrial fibrillation (HCC) Take 1 Tab by mouth daily. 30 Tab 11 03/05/2021 Active Carvedilol 6.25 MG Oral Tablet (Coreg)Indications:C hronic systolic heart failure (HCC),Paroxysmal atrial fibrillation (HCC) Take 1 Tab by mouth 2 times a day. with food 180 Tab 3 03/05/2021 Active Fluticasone-Salmeter ol 250-50 MCG/DOSE Inhalation Aerosol Powder Breath Activated (Advair Diskus) Inhale 1 Puff by mouth 2 times a day. 0 Active documented as of this encounter [...] Hypoxemia 10/08/2011 10/30/2015 Genetic Sleep Disorder Research Other*[id number] 07/25/2011 05/15/2016 Diverticulitis of colon 07/25/2011 01/06/20 [...] mRNA, LNP-s, No Pre serve, 2-Dose Series ([employer]) 12/22/2020,2020 Hepatitis B, 20+ yrs 10/01/2017,04/21/2017,03/20 Pneumococcal [...] as of this encounter Progress Notes * Geri Morillo RN - 03/16/2021 10:35 AM EDT Case Management Assessment- HERMAN Is this call for a hospital, intermediate or rehab facility discharge to home? Yes [facility] 02-24-21 to 03-02-21 with acute on chronic systolic heart failure. Discharged home alone with [facility]. S: Reports: Patient says she has chronic SOB with activity, denies cough, LE edema or angina Weight today was 244 lbs, was 244 lbs with last call Patient using O2 at 2 liters during the daytime & 4 liters at night Has a fair appetite, says she had some abdominal sorenessfor a week or so- denies nausea or vomiting Has some chronic back pain, not new for her, controlled with oral pain medication No skin issues, sleeping okay at night Blood sugars running 120-150 Patient lives alone in a trailer, daughter checks on her daily Patient says she is independent with ambulation & ADL's Continues to be followed by [facility] No current questions/concerns O: Phone visit for HERMAN. Medications: Medication reconciliation with Nina, takes all medications as prescribed. and denies side effects Does this patient qualify for an annual wellness visit? Yes, Patient refused A: Patient Centered Prioritized Goals: Development of self - management action plan with patient/caregiver/ provider. Patient and caregiver demonstrate basic understanding of their disease process. Patient/ caregiver demonstrates adherence to treatment plan. Identified Barriers: Patient/caregiver's lack of understanding of their condition and prescribed treatment plan, Psychological impairment and Older than 70 years FUNCTIONAL STATUS: (Definition [...] to communicate, understand instructions, process information. P: Meter/Relay Craftsman Interventions: Reviewed HF symptom monitoring: -Weigh self daily in am, post-void and record -Do not add salt to food, avoid foods high in sodium -Limit fluids to 2 liters per day -Report the following: ->2 lb weight gain in one day or 5 lbs in a week to PCP -increased edema in feet, abdomen or hands -increased SOB and cough, especially if at night -increased fatigue or vertigo Encouraged patient to call for an appointment if abdominal pain gets any worse COPD: Pt instructed to: -Call with increased SOB, wheezing, chest tightness, increased cough, increased sputum with change in color or consistency and fever. -Wash hands often -Drink plenty of fluids -Use inhalers as directed, do not stop or skip doses -Avoid stress -Rest when tired or SOB -Avoid triggers -Clean inhalers once a week Instructed to eat a healthy, well-balanced diet. Be cognizant of foods high in sugar and carbohydrates. Increase physical activity, take all medications as directed, monitor blood glucose twice a day. Check blood glucose once before breakfast (fasting) and once two hours after a meal (post-prandial), document and take readings to next PCP visit. Report consistently elevated or low readings. Goal is <130mg/dl fasting and <180mg/dl post-prandial. Target A1C is <7%. Reinforce Self Management Action Plan established at previous visit Reinforced "call back instructions" if weight fails to return to baseline, urine outputs decrease, symptoms increase Updated managing provider Reinforced fluid / diet restrictions Reinforced sodium restriction Reinforced safety education / fall prevention Reinforced medication regimen - timing / dosing / purpose- Lasix, coreg, spironolactone, digoxin Explained/reinforced role of lining caser. Encouraged to call with any issues or concerns. Gave direct phone number and contact information. PCP Notified of enrollment in CM/HM program: Yes SNP Member? No Re-evaluation of plan of care and progress towards goals achievement:Taking medications as ordered.Knows signs of problems to report to MD/CM. Agrees to calls from CM. Plan to call patient next week o reassess and update plan of care, instructed to call Meter/Relay Craftsman or Primary Care Provider with change in symptoms or as needed before next follow-up, verbalizes understanding and agrees with plan. Cindy Martinez RN Outpatient Meter/Relay Craftsman documented in this encounter Plan of Treatment Upcoming Encounters Date Type Specialty Care Team Description 04/03/2021 Office Visit Internal Medicine Marcela Pinto MD [address] [place] [address] [phone] 06/13/2021 Office Visit Cardiology Dulce Merino CRNP [address] [place] [address] [phone] Health Maintenance Due Date Last Done Comments Zoster Vaccines (2 of 3) 08/31/2012 07/06/2012 DIABETES-EYE EXAM 08/07/2021 08/07/2020, , 09/14/2018, Additional history exists CKD GFR USE SMARTSET 92429 09/09/202103/09, 03/05/2021, 01/24/2021, Additional history exists DIABETES-HGBA1C EVERY 6 MONTHS 09/09/2021 03/09/2021, 12/05/2020, 08/10/2020, Additional history exists DIABETES-FOOT EXAM 12/21/2021 12/21/2020, 0 10/19/2019, 01/05/2019, Additional history exists CKD HGB USE SMARTSET 43450 03/09/202203/09, 03/09/2021, 01/24/2021, Additional history exists CKD PHOS USE SMARTSET 12446 03/09/2022 03/09/2021, 0 03/22/2019 Dexa Scan 08/08/2025 [...] failure (HCC)- Primary Chronic systolic heart failure documented in this encounter Advance Directives Documents on File Type Date Recorded Patient Materials Management Clerk Expl 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
--- OUTSIDE RECORDS SUMMARY | 2023-06-18 03:13 | External Medical Summary | Summary of Care ---
Author Name Unknown Organization [place] [address] Care Team Providers Care It Application Architect Name Role Phone Marcela Pinto MD Primary Care Provider + Encounter Details Date Type Department Care Team Description 03/28/2021 Orders Only General Internal Medicine [facility] [place] [address] [facility] [place] [address] Marcela Pinto MD [address] [facility] [place] [place] [address] [phone] Allergies Active Allergy Reactions Severity Noted Date Comments Valsartan 07/10/2010 Enalapril 05/21/2006 Escitalopram Oxalate Nausea/vomiting 10/11/2009 Nauseated Iodinated Diagnostic Agents Nausea/vomiting 05/2010 IV Contrast Iodine Hives 12/18/2009 IV Contrast Metoprolol Tartrate 11/18/2006 Made pulse low [place] Oil-Black Currant-Vit E 07/10/2010 Verapamil 03/21/2004 [...] Hypoxemia 10/08/2011 10/30/2015 Genetic Sleep Disorder Research Other*[id number] 07/25/2011 05/15/2016 Diverticulitis of colon 07/25/2011 01/06/20 [...] mRNA, LNP-s, No Pre serve, 2-Dose Series ([employer]) 12/22/2020,2020 Hepatitis B, 20+ yrs 10/01/2017,04/21/2017,03/20 Pneumococcal [...] Internal Medicine Marcela Pinto MD [address] [place] [address] [phone] 06/13/2021 Office Visit Cardiology Dulce Merino CRNP [address] [place] [address] Health Maintenance Due Date Last Done Comments Zoster Vaccines (2 of 3) 08/31/2012 07/06/2012 CKD GFR USE SMARTSET 44588 09/09/202103/09, 03/05/2021, 01/24/2021, Additional history exists DIABETES-HGBA1C EVERY 6 MONTHS 09/09/2021 03/09/2021, 12/05/2020, 08/10/2020, Additional history exists DIABETES-FOOT EXAM 12/21/2021 12/21/2020, 0 10/19/2019, 01/05/2019, Additional history exists CKD HGB USE SMARTSET 39775 03/09/202203/09, 03/09/2021, 01/24/2021, Additional history exists CKD PHOS USE SMARTSET 39621 03/09/2022 03/09/2021, 0 03/22/2019 DIABETES-EYE EXAM 03/28/2022 03/26/2021, , 08/10/2019, Additional history exists Dexa [...] Associated Diagnosis Comments DIABETIC EYE EXAM Routine 03/26/2021 documented in this encounter Results * DIABETIC EYE EXAM (03/26/2021) Specimen Narrative Performed At OUTSIDE LAB (SEE SCANNED REPORT) documented in this encounter Advance Directives Documents on File Type Date Recorded Patient Secondary Spanish Teacher Expl 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
--- OUTSIDE RECORDS SUMMARY | 2023-06-18 03:13 | External Medical Summary | Summary of Care ---
Author Name Unknown Organization [place] [address] Care Team Providers Care Customer Experience Analyst Name Role Phone Marcela Pinto MD Primary Care Provider + Reason for Visit * Reason Onset Date Comments case management 03/09/2021 [facility] Encounter Details Date Type Department Care Team Description 03/09/2021 Director Aeronautics Commission Telephone Family Practice [facility] [address] [place] [address] Cici Gama RN [address] [place] [address] [phone] case management ([facility]) Allergies Active Allergy Reactions Severity Noted Date Comments Valsartan 07/10/2010 Enalapril 05/21/2006 Escitalopram Oxalate Nausea/vomiting 10/11/2009 Nauseated Iodinated Diagnostic Agents Nausea/vomiting 05/2010 IV Contrast Iodine Hives 12/18/2009 IV Contrast Metoprolol Tartrate 11/18/2006 Made pulse low [place] Oil-Black Currant-Vit E 07/10/2010 Verapamil 03/21/2004 Bupropion Hcl 10/30/2009 Makes pt sick in the stomach documented as of this encounter (statuses as of 03/09/2021) Medications Medication Sig Dispensed Refills Start Date [...] hemoglobin A1c goal of less than 7.0% ([facility]) USE TO TEST BLOOD SUGAR [...] as of this encounter (statuses as of 03/09/2021) Active Problems Problem Noted Date Chronic systolic [...] as of this encounter (statuses as of 03/09/2021) Resolved Problems Problem Noted Date Resolved Date [...] Hypoxemia 10/08/2011 10/30/2015 Genetic Sleep Disorder Research Other*[id number] 07/25/2011 05/15/2016 Diverticulitis of colon 07/25/2011 01/06/20 [...] as of this encounter (statuses as of 03/09/2021) Immunizations Name Administration Dates Next Due COVID-19 mRNA, LNP-s, No Pre serve, 2-Dose Series ([employer]) 12/22/2020,2020 Hepatitis B, 20+ yrs 10/01/2017,04/21/2017,03/20 Pneumococcal [...] Telephone Encounter - Cici Gama RN - 03/09/2021 10:11 AM EDT Attempted to contact patient for HERMAN initial follow up assessment. No answer. Left message on voicemail. Patient may be on her way to a cardiology appointment. [facility] 1. Follow-up Post Discharge 2. Attempted Phone Call Third Attempt 3. Call Unanswered Left Voicemail 4. Plan will await call back from patient. documented in this encounter Plan of Treatment Upcoming Encounters Date Type Specialty Care Team Description 04/03/2021 Office Visit Internal Medicine Marcela Pinto MD [address] [place] [address] Health Maintenance Due Date Last Done Comments Zoster Vaccines (2 of 3) 08/31/2012 07/06/2012 CKD PHOS USE SMARTSET 69133 03/22/2020 03/22/2019 DIABETES-HGBA1C EVERY 6 MONTHS 06/04/2021 12/05/2020, 08/10/2020, 06/28/2020, Additional history exists DIABETES-EYE EXAM 08/07/2021 08/07/2020, , 09/14/2018, Additional history exists CKD GFR USE SMARTSET 75268 09/05/202103/05, 01/24/2021, 01/03/2021, Additional history exists DIABETES-FOOT EXAM 12/21/2021 12/21/2020, 0 10/19/2019, 01/05/2019, Additional history exists CKD HGB USE SMARTSET 62509 01/24/202201/24, 01/03/2021, 12/05/2020, Additional history exists Dexa Scan 08/08/2025 08/08/2020, [...] Documents on File Type Date Recorded Patient Tax Processor Expl anation Advanced 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
--- OUTSIDE RECORDS SUMMARY | 2023-06-18 03:13 | External Medical Summary | Summary of Care ---
Author Name Unknown Organization [place] [address] Care Team Providers Care Training Administrator Name Role Phone Marcela Pinto MD Primary Care Provider + Reason for Visit * Reason Comments Hospital Follow-Up * Evaluate & Treat - Unlimited Visits (Within 10 days (routine)) Status Reason Specialty Diagnoses / Procedures Referred By Contact Referred To Contact Closed Specialty Services Required Cardiovascular Medicine / Cardiology Diagnoses Chronic systolic heart failure (HCC) David Duke PA-C [address] [place] [address] Encounter Details Date Type Department Care Team Description 03/09/2021 Office Visit Cardiology, [facility] [address] [place] [address] Hammad Lopez DO [address], [place] [id number] Chronic 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)*; NICM (nonischemic cardiomyopathy) ([facility]); Chronic atrial fibrillation (HCC); Presence of Watchman left atrial appendage closure device; Hospital discharge follow-up Allergies Active Allergy Reactions Severity Noted Date Comments Valsartan 07/10/2010 Enalapril 05/21/2006 Escitalopram Oxalate Nausea/vomiting 10/11/2009 Nauseated Iodinated Diagnostic Agents Nausea/vomiting 05/2010 IV Contrast Iodine Hives 12/18/2009 IV Contrast Metoprolol Tartrate 11/18/2006 Made pulse low [place] Oil-Black Currant-Vit E 07/10/2010 Verapamil 03/21/2004 Bupropion [...] Hypoxemia 10/08/2011 10/30/2015 Genetic Sleep Disorder Research Other*[id number] 07/25/2011 05/15/2016 Diverticulitis of colon 07/25/2011 01/06/20 [...] mRNA, LNP-s, No Pre serve, 2-Dose Series ([employer]) 12/22/2020,2020 Hepatitis B, 20+ yrs 10/01/2017,04/21/2017,03/20 Pneumococcal [...] Sign Reading Time Taken Comments Blood Pressure 102/70 03/09/2021 10:12 AM EDT Pulse 64 03/09/2021 10:12 AM EDT Temperature 35.6 C (96.1 F) 03/09/2021 1 0:12 AM EDT Respiratory Rate 14 03/09/2021 10:1 2 AM EDT Oxygen Saturation - - Inhaled Oxygen Concentration - - Weight 112.4 kg (247 lb 14.4 oz) 2020 10:12 AM EDT Height - - Body Mass Index 41.25 03/05/2021 8:32 AM EDT documented in this encounter Progress Notes * Hammad Lopez DO - 03/09/2021 10:21 AM EDT SUBJECTIVE: Patient returns today for hospital follow-up. Admitted to [facility] 02/24/21 secondary to acute on chronic heart failure with reduced ejection fraction. History of nonischemic cardiomyopathy and chronic rate controlled atrial fibrillation status post watchman device implantation. Hospital records reviewed. Patient treated with IV diuretics during hospitalization. Diltiazem discontinued. Low-dose Aldactone and digoxin added. Carvedilol titrated to 6.25 mg twice daily. Today, feeling well from a cardiovascular standpoint. Weight is down additional 3 lb since hospitaldischarge. Followup lab testing demonstrates preserved renal function. Patient tolerating medication changes without side effects. No orthopnea, PND, or edema. Denies palpitations, lightheadedness, dizziness, syncope, or near syncope. ROS: All others negative other than those noted in the HPI. 2D echo report summary [facility] 02/26/21: LV systolic function [...] of less than 7.5% ([facility]) E11.9 Hypercalcemia E83.52 Elevated plasma metanephrines R79.89 Irritable bowel syndrome with constipation K58.1 Ischemic colitis ([facility]) K55.9 HECTOR (generalized anxiety disorder) F41.1 COPD, group B, 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 ([facility]) J44.9 Morbid obesity with BMI of 40.0-44.9, adult ([facility]) E66.01, Z68.41 Gastro-esophageal reflux disease without esophagitis K21.9 Diabetes mellitus with stage 3 chronic kidney disease ([facility]) E11.22, N18.30 Paroxysmal atrial fibrillation ([facility]) I48.0 Chronic systolic heart failure ([facility]) I50.22 Pulmonary HTN ([facility]) I27.20 Chronic hypoxemic respiratory failure ([facility]) J96.11 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 Tobacco Use Smoking status: Never [...] IV Contrast Metoprolol Tartrate Made pulse low [place] Oil-Black Currant-Vit E Verapamil Wellbutrin [Bupropion Hcl] Makes pt sick in the stomach Current Outpatient Medications Medication Sig Dispense Refill Fluticasone-Salmeterol 250-50 MCG/DOSE Inhalation Aerosol Powder Breath Activated (Advair Diskus) Inhale 1 Puff by mouth 2 times a day. HYDROcodone-Acetaminophen 5-325 MG Oral Tablet Take 1 Tab by mouth every 6 hours as needed for Pain, Mild. 120 Tab 0 Carvedilol 6.25 MG Oral Tablet (Coreg) Take 1 Tab by mouth 2 times a day. with food 180 Tab 3 Digoxin 125 MCG Oral Tablet (Lanoxin) Take 1 Tab by mouth daily. 30 Tab 11 Furosemide 40 MG Oral Tablet (Lasix) 80 mg in AM, 40 mg in PM 270 Tab 1 Spironolactone 25 MG Oral Tablet (Aldactone) Take 0.5 Tabs by mouth daily. 30 Tab 3 Promethazine HCl 25 MG Oral Tablet (Phenergan) TAKE 1 TABLET BY MOUTH EVERY 6 HOURS NEEDED FOR NAUSEA 30 Tab 0 Atorvastatin Calcium 40 MG Oral Tablet (Lipitor) TAKE 1 TABLET BY MOUTH EVERY DAY 90 Tab 1 Kenzie Contour Test In Vitro Strip (Glucose Blood) USE TO TEST BLOOD SUGAR 3 TIMES A DAY FOR DIAGNOSIS CODE OF E11.9 300 Strip 1 Dicyclomine HCl 20 MG Oral Tablet [...] MOUTH TWICE A DAY 180 Cap 1 Zafirlukast 20 MG Oral Tablet (ACCOLATE) TAKE 1 TABLET BY MOUTH EVERY DAY 90 Tab 3 methIMAzole 5 MG Oral Tablet (TAPAZOLE) Take 10 mg by mouth daily. ondansetron ODT (ZOFRAN) [address] 8 mg on tongue every 8 hours as needed for Nausea. dissolve on tongue. Blood Glucose Monitoring Suppl (CONTOUR MONITOR) w/Device KIT USE TO TEST BLOOD SUGAR 3 TIMES ADAY FOR DIAGNOSIS CODE OF E11.9 1 Kit 0 Lancets [facility] Use as directed. USE TO TEST BLOOD [...] One tablet every day 60 Tab 11 glimepiride (AMARYL) 4 MG Tablet Take 2 [...] 1000 UNITS PO TABS one tablet daily doxycycline 100 MG Tablet Take 100 mg by mouth 2 times a day. RESCUE KIT: Take for Colds. guaiFENesin-codeine (ROBITUSSIN AC) 100-10 MG/5ML solution Take 10 mL by mouth every 4 hours as needed. zoster vac recomb adjuvanted (SHINGRIX) 50 MCG/0.5ML injection Inject 0.5 mL into a large muscle now and repeat dose in 60 to 180 days. Please fax date this was given to our office. 1 Each 1 docusate sodium (COLACE) 100 MG Capsule Take 1 Cap by mouth daily. 90 Cap 0 Lipid Panel Results: Results for orders placed [...] PM TSH - OUTSIDE LAB 0.965 12/05/2020 TSH - OUTSIDE LAB 0.241 (A) 06/28/2020 TSH - OUTSIDE LAB 0.443 03/10/2020 CBC Results: Results for orders placed or [...] 6.6 - 11.1 fL OBJECTIVE/PHYSICAL EXAMINATION: BP 102/70 (BP Site: Left Arm, BP Position: Sitting, BP Cuff Size: Regular) | Pulse 64 | Temp 35.6 C (96.1 F) | Resp 14 | Wt 112.4 kg (247 lb 14.4 oz) | BMI 41.25 kg/m | BSA 2.27 m General: NAD, AAO x3, well nourished. Obese. HEENT: Normocephalic. Atraumatic. Conjunctiva pink, noscleral icterus. No carotid bruits, the carotid upstrokes are brisk. No JVD. No HJR Heart: Irregular rhythm, normal S-1 and S-2. Soft, 1/6 6 solid ejection murmur heard best at the right 2nd intercostal space. PMI is not displaced. No RV heave. Lungs: Clear bilateral without rales , rhonchi, or wheeze. Abdomen: Normal bowel sounds. Soft. Nontender. No masses or organomegaly. No abdominal bruits. Extremities: No clubbing, cyanosis, or edema. Pulses: radial=2/4, Dorsalis pedis =2/4, posterior tibial=2/4. Neuro: No focal deficits. ASSESSMENT: 1. Chronic heart failure with reduced ejection fraction -compensated with Class 3 functional capacity 2. Nonischemic cardiomyopathy -cardiac catheterization performed November 2020 in [place] demonstrating mild nonobstructive coronary disease. 3. Chronic rate controlled atrial fibrillation 4. Severe oxygen-dependent COPD with chronic hypercapnia PLAN: Digoxin level Natural history and pathophysiology of chronic systolic heart failure discussed with patient. Recent medication changes reviewed. She will continue current cardiovascular medical therapies as listed above. Assess daily weight. Diuretic protocol reviewed: Instructed to take an additional 40 mg of Lasix in the afternoon if weight increases more than 2 lb in a 48 hour period, or 5 lb in 1 week. Sodium restriction advised. All questions answered to patient's satisfaction. Follow Up: Return in about 3 months (around 06/09/2021). Hammad Lopez DO, FACC Associate Cardiology - [facility] documented in this encounter Nursing Notes * Vargas Shabazz RN - 03/09/2021 10:14 AM EDT Pt being seen in cardiology clinic today for [facility] follow up appt. BP 102/70 (BP Site: Left Arm, BP Position: Sitting, BP Cuff Size: Regular) | Pulse 64 | Temp 35.6 C (96.1 F) | Resp 14 | Wt 112.4 kg (247 lb 14.4 oz) | BMI 41.25 kg/m | BSA 2.27 m Patient was instructed to: - not get up on the exam table until directed and assisted by their provider - to remain seated in the chair/ wheelchair/ exam table for fall prevention and safety reasons. - Wait to step down off exam table until personnel and present to assist them Patient voiced full comprehension of instructions. Ed Mele RN documented in this encounter Plan of Treatment Upcoming Encounters Date Type Specialty Care Team Description 04/03/2021 Office Visit Internal [facility] [address] [facility] [address] [phone] 06/13/2021 Office Visit [facility] [address] [facility] [address] [phone] Pending Results Name Type Priority Associated Diagnoses Date /Time DIGOXIN LEVEL Lab Routine Chronic 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) NICM (nonischemic cardiomyopathy) (HCC) Chronic atrial fibrillation (HCC) 03/09/2021 10:49 AM EDT Scheduled Orders Name Type Priority Associated Diagnoses Orde r Schedule DIGOXIN LEVEL Lab Routine Chronic 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) NICM (nonischemic cardiomyopathy) (HCC) Chronic atrial fibrillation (HCC) Expected: 03/09/2021 (Approximate), Expires: 03/09/2022 Health Maintenance Due Date Last Done Comments Zoster Vaccines (2 of 3) 08/31/2012 07/06/2012 CKD PHOS USE SMARTSET 87886 03/22/2020 03/22/2019 DIABETES-HGBA1C EVERY 6 MONTHS 06/04/2021 12/05/2020, 08/10/2020, 06/28/2020, Additional history exists DIABETES-EYE EXAM 08/07/2021 08/07/2020, , 09/14/2018, Additional history exists CKD GFR USE SMARTSET 66287 09/05/202103/05, 01/24/2021, 01/03/2021, Additional history exists DIABETES-FOOT EXAM 12/21/2021 12/21/2020, 0 10/19/2019, 01/05/2019, Additional history exists CKD HGB USE SMARTSET 92399 01/24/202201/24, 01/03/2021, 12/05/2020, Additional history exists Dexa [...] cardiomyopathies Chronic atrial fibrillation (HCC) Atrial fibrillation Presence of Watchman left atrial appendage closure device Hospital discharge follow-up Other follow-up examination documented in this encounter Advance Directives Documents on File Type Date Recorded 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
--- OUTSIDE RECORDS SUMMARY | 2023-06-18 03:13 | External Medical Summary | Summary of Care ---
Author Name Unknown Organization [place] [address] Care Team Providers Care Veneer Glue Spreader Name Role Phone Marcela Pinto MD Primary Care Provider + Reason for Visit * Reason Onset Date Comments case management 03/08/2021 [facility] Encounter Details Date Type Department Care Team Description 03/08/2021 Database Technician Telephone Family Practice [facility] [address] [facility] [place] [address] Cici Gama RN [address] [place] [address] [phone] case management ([facility]) Allergies Active Allergy Reactions Severity Noted Date Comments Valsartan 07/10/2010 Enalapril 05/21/2006 Escitalopram Oxalate Nausea/vomiting 10/11/2009 Nauseated Iodinated Diagnostic Agents Nausea/vomiting 05/2010 IV Contrast Iodine Hives 12/18/2009 IV Contrast Metoprolol Tartrate 11/18/2006 Made pulse low [place] Oil-Black Currant-Vit E 07/10/2010 Verapamil 03/21/2004 Bupropion [...] with food 180 Tab 3 03/05/2021 Active documented as of this encounter (statuses [...] Hypoxemia 10/08/2011 10/30/2015 Genetic Sleep Disorder Research Other*[id number] 07/25/2011 05/15/2016 Diverticulitis of colon 07/25/2011 01/06/20 [...] mRNA, LNP-s, No Pre serve, 2-Dose Series ([employer]) 12/22/2020,2020 Hepatitis B, 20+ yrs 10/01/2017,04/21/2017,03/20 Pneumococcal [...] Encounter - Cici Gama RN - 03/09/2021 10:13 AM EDT Received voicemail from patient saying she was in the bathroom when CM tried to call. Will await call back from CM. * Telephone Encounter - Cici Gama RN - 03/08/2021 2:05 PM EDT Attempted to contact patient for initial HERMAN follow up. No answer. Left message requesting call back. [facility]. 1. Follow-up Post Discharge 2. Attempted Phone Call Second Attempt 3. Call Unanswered Left Voicemail 4. Plan To attempt Follow-up documented in this encounter Plan of Treatment Upcoming Encounters Date Type Specialty Care Team Description 04/03/2021 Office Visit Internal Medicine Marcela Pinto MD [address] [place] [address] [phone] Health Maintenance Due Date Last Done Comments Zoster Vaccines (2 of 3) 08/31/2012 07/06/2012 CKD PHOS USE SMARTSET 57022 03/22/2020 03/22/2019 DIABETES-HGBA1C EVERY 6 MONTHS 06/04/2021 12/05/2020, 08/10/2020, 06/28/2020, Additional history exists DIABETES-EYE EXAM 08/07/2021 08/07/2020, , 09/14/2018, Additional history exists CKD GFR USE SMARTSET 36551 09/05/202103/05, 01/24/2021, 01/03/2021, Additional history exists DIABETES-FOOT EXAM 12/21/2021 12/21/2020, 0 10/19/2019, 01/05/2019, Additional history exists CKD HGB USE SMARTSET 54345 01/24/202201/24, 01/03/2021, 12/05/2020, Additional history exists Dexa [...] Documents on File Type Date Recorded 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
--- OUTSIDE RECORDS SUMMARY | 2023-06-18 03:13 | External Medical Summary | Summary of Care ---
Author Name Unknown Organization [place] [address] Care Team Providers Care Sprinkler Truck Driver Name Role Phone Marcela Pinto MD Primary Care Provider + Reason for Visit * Reason Onset Date Comments case management 03/09/2021 Encounter Details Date Type Department Care Team Description 03/09/2021 Sustainability SpecialistFrame Nailer Internal Medicine [facility] [address] [facility] [place] [address] Cindy Martinez RN [address] [place] [address] [phone] Hospital discharge follow-up*; Chronic systolic heart failure ([facility]); Pulmonary HTN ([facility]); JORDAN (obstructive sleep apnea); COPD, group B, 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 ([facility]); Type 2 diabetes mellitus with hemoglobin A1c goal of less than 7.5% ([facility]); Generalized osteoarthritis Allergies Active Allergy Reactions Severity Noted Date Comments Valsartan 07/10/2010 Enalapril 05/21/2006 Escitalopram Oxalate Nausea/vomiting 10/11/2009 Nauseated Iodinated Diagnostic Agents Nausea/vomiting 05/2010 IV Contrast Iodine Hives 12/18/2009 IV Contrast Metoprolol Tartrate 11/18/2006 Made pulse low [place] Oil-Black Currant-Vit E 07/10/2010 Verapamil 03/21/2004 Bupropion [...] Hypoxemia 10/08/2011 10/30/2015 Genetic Sleep Disorder Research Other*[id number] 07/25/2011 05/15/2016 Diverticulitis of colon 07/25/2011 01/06/20 [...] mRNA, LNP-s, No Pre serve, 2-Dose Series ([employer]) 12/22/2020,2020 Hepatitis B, 20+ yrs 10/01/2017,04/21/2017,03/20 Pneumococcal [...] as of this encounter Progress Notes * Cindy Martinez RN - 03/09/2021 2:16 PM EDT Case Management Assessment- HERMAN Is this call for a hospital, senior care or rehab facility discharge to home? Yes [facility] 02-24-21 to 03-02-21 with acute on chronic systolic heart failure. Discharged home alone with [facility]. S: Reports: Saw PCP and plywood layup line core feeder this week. Doing well on present medications. Weight was 243# on home scale. Denies chest pain, swelling, or cough. SOB with exertion. Wears O2 2 l during day and4 L at night. PO2 94-98% with O2 on. FBS 147. Appetite is good. Only pain is low back pain. Uses Hyd rocodone 2 x a day with relief. Increased edema: denies Chest pain denies Increased shortness of breath: cough denies dyspnea with daily activities and with light housework (ie-dusting, making the bed, climbing the stairs) oxygen 2L-rest and 4L-sleep Chills / Sweats / Fever: denies fever Fall: denies any falls since last Care Management encounter assistive device:none Appetite: denies nausea, vomiting, burning, decreased appetite Bowel: denies problems Bladder: denies problems Medications: takes all medications as prescribed. and denies side effects O: Phone visit for HERMAN. Spoke with Nina. Alert and oriented. Lives alone in trailer. Daughter lives nearby and visits daily. Independent with ADL's. Dr Pinto 04-03-21; Cardiology 06-13-21. EF 40-45% 02-26-21. Has covid vaccines 12-01-20 and 12-22-20. Medications: Medication reconciliation with Nina, takes all [...] to communicate, understand instructions, process information. P: Sustainability Specialist Interventions: Reviewed HF symptom monitoring: -Weigh self [...] if at night -increased fatigue or vertigo COPD: Pt instructed to: -Call with increased [...] Lasix, coreg, spironolactone, digoxin Explained/reinforced role of showcase maker. Encouraged to call with any issues or concerns. Gave direct phone number and contact information. PCP Notified of enrollment in CM/HM program: Yes SNP Member? No Re-evaluation of plan of care and progress towards goals achievement:Taking medications as ordered.Knows signs of problems to report to MD/CM. Agrees to calls from CM. Plan to call patient in one week to reassess and update plan of care, instructed to call Sustainability Specialist or Primary Care Provider with change in symptoms or as needed before next follow-up, verbalizes understanding and agrees with plan. Cindy Martinez RN Outpatient Sustainability Specialist documented in this encounter Plan of Treatment Upcoming Encounters Date Type Specialty Care Team Description 04/03/2021 Office Visit Internal Medicine Marcela Pinto MD [address] [facility] [address] [phone] 06/13/2021 Office Visit Cardiology Dulce Merino CRNP [address] [facility] [place] [address] [phone] Health Maintenance Due Date Last Done Comments Zoster Vaccines (2 of 3) 08/31/2012 07/06/2012 CKD PHOS USE SMARTSET 68503 03/22/2020 03/22/2019 DIABETES-HGBA1C EVERY 6 MONTHS 06/04/2021 12/05/2020, 08/10/2020, 06/28/2020, Additional history exists DIABETES-EYE EXAM 08/07/2021 08/07/2020, , 09/14/2018, Additional history exists CKD GFR USE SMARTSET 63564 09/09/202103/09, 03/05/2021, 01/24/2021, Additional history exists DIABETES-FOOT EXAM 12/21/2021 12/21/2020, 0 10/19/2019, 01/05/2019, Additional history exists CKD HGB USE SMARTSET 45237 03/09/202203/09, 03/09/2021, 01/24/2021, Additional history exists Dexa Scan 08/08/2025 08/08/2020, [...] as of this encounter Visit Diagnoses Diagnosis Hospital discharge follow-up- Primary Other follow-up examination Chronic systolic heart failure (HCC) Chronic systolic heart failure Pulmonary HTN (HCC) Other chronic pulmonary heart diseases JORDAN (obstructive sleep apnea) Obstructive sleep apnea (adult) (pediatric) COPD, group B, 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 (HCC) Type 2 diabetes mellitus with hemoglobin A1c goal of less than 7.5% (HCC) Generalized osteoarthritis Generalized osteoarthrosis, unspecified site documented in this encounter Advance Directives Documents on File Type Date Recorded 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
--- OUTSIDE RECORDS SUMMARY | 2023-06-18 03:13 | External Medical Summary | Summary of Care ---
Author Name Unknown Organization [place] [address] Care Team Providers Care Wort Extractor Name Role Phone Marcela Pinto MD Primary Care Provider + Encounter Details Date Type Department Care Team Description 03/13/2021 Machine RebuilderPhotographer Apprentice Lithographic [facility] Ashok Romero [place] [address] [facility] [place] [address] Cici Gama RN 200 [place] [address] [phone] Medical home patient encounter*; Chronic systolic heart failure (HCC); Irritable bowel syndrome with constipation; Ischemic colitis (HCC); Type 2 diabetes mellitus with hemoglobin A1c goal of less than 7.5% ([facility]); COPD, group B, 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 (HCC); Chronic hypoxemic respiratory failure ([facility]) Allergies Active Allergy Reactions Severity Noted Date Comments Valsartan 07/10/2010 Enalapril 05/21/2006 Escitalopram Oxalate Nausea/vomiting 10/11/2009 Nauseated Iodinated Diagnostic Agents Nausea/vomiting 05/2010 IV Contrast Iodine Hives 12/18/2009 IV Contrast Metoprolol Tartrate 11/18/2006 Made pulse low [place] Oil-Black Currant-Vit E 07/10/2010 Verapamil 03/21/2004 Bupropion Hcl 10/30/2009 Makes pt sick in the stomach documented as of this encounter (statuses as of 03/13/2021) Medications Medication Sig Dispensed Refills Start Date [...] as of this encounter (statuses as of 03/13/2021) Active Problems Problem Noted Date Chronic systolic [...] as of this encounter (statuses as of 03/13/2021) Resolved Problems Problem Noted Date Resolved Date [...] Hypoxemia 10/08/2011 10/30/2015 Genetic Sleep Disorder Research Other*[id number] 07/25/2011 05/15/2016 Diverticulitis of colon 07/25/2011 01/06/20 [...] as of this encounter (statuses as of 03/13/2021) Immunizations Name Administration Dates Next Due COVID-19 mRNA, LNP-s, No Pre serve, 2-Dose Series ([employer]) 12/22/2020,2020 Hepatitis B, 20+ yrs 10/01/2017,04/21/2017,03/20 Pneumococcal [...] of this encounter Progress Notes * Cici Gama RN - 03/13/2021 4:27 PM EDT HERMAN week #2, contact #1. Discharged from [facility] 03-02-21 with acute on chronic systolic heart failure. Called and spoke with patient. Alert, oriented, pleasant. Reports overall condition as "pretty good. Active with [facility]. -reports the home health nurse was there this morning. Biggest complaint today: -discomfort in "stomach" and left side again -feels like her diverticulitis is acting up, or going to act up -has been following a diverticulitis diet - avoiding high fiber foods -denies issues with her bowels. Denies any blood with or in her stools. -bowels move regularly with aide of Miralax -not severe, but uncomfortable -affecting appetite/intake. "But I don't need to eat more." Discussed recent lab results. -A1c a little higher. "Guess I will have to watch a little better." -FBS this morning was 128. Asked about Dig Level -informed her it was within normal range -"that's good" -talked about how digoxin makes the heart beat stronger and more regular Denies chest pain. Denies increased edema. -reports edema as a little bit in feet/ankles every now and then, none at present. -denies increase in abdominal size/girth -performing daily dry weights. -today weight was 244 lbs. Patient reports that's about where it's been staying. Denies increased shortness of breath. -wearing her oxygen continuously, via nasal cannula, at 2 LPM during the day, and 4 LPM at night. Denies increase in cough. Reviewed HF symptom monitoring: -Weigh self daily in am, post-void and record -Do not add salt to food, avoid foods high in sodium. Discussed canned soups/vegetables, south sudanese foods, oodles of noodles, canned hams, pickles, olives, potato chips, pretzels, ketchup, BBQ sauce, sauerkraut, etc. Patient avoids these foods. "Never" adds salt to anything. -Limit fluids to 2 liters per day -Report the following: ->2 lb weight gain in one day or 5 lbs in a week to PCP -increased edema in feet, abdomen or hands -increased SOB and cough, especially if at night -increased fatigue or vertigo Pain: -besides the discomfort in abdomen and left side. Reports abdominal pain is in lower half, "from the waist down" -patient also reports chronic low back pain. Managed with hydrocodone/acetaminphen. Takes twice daily: AM and PM. -rates her back pain at 3-4 when sitting, can go up to 7-8 if up and doing too much Confirmed upcoming PCP appointment in 3 weeks. Reinforced role of director of casework department. Encouraged to call with any issues or concerns. Patient has CM direct phone number and contact information. Next scheduled contact is for later this week. Patient agreeable with plan. documented in this encounter Plan of Treatment Upcoming Encounters Date Type Specialty Care Team Description 04/03/2021 Office Visit Internal Medicine Marcela Pinto MD [address] [place] [address] [phone] 06/13/2021 Office Visit Cardiology Dulce Merino CRNP [address] [place] [address] [phone] Health Maintenance Due Date Last Done Comments Zoster Vaccines (2 of 3) 08/31/2012 07/06/2012 DIABETES-EYE EXAM 08/07/2021 08/07/2020, , 09/14/2018, Additional history exists CKD GFR USE SMARTSET 10775 09/09/202103/09, 03/05/2021, 01/24/2021, Additional history exists DIABETES-HGBA1C EVERY 6 MONTHS 09/09/2021 03/09/2021, 12/05/2020, 08/10/2020, Additional history exists DIABETES-FOOT EXAM 12/21/2021 12/21/2020, 0 10/19/2019, 01/05/2019, Additional history exists CKD HGB USE SMARTSET 20000 03/09/202203/09, 03/09/2021, 01/24/2021, Additional history exists CKD PHOS USE SMARTSET 86889 03/09/2022 03/09/2021, 0 03/22/2019 Dexa Scan 08/08/2025 [...] home patient encounter- Primary Other specified examination Chronic systolic heart failure (HCC) Chronic systolic heart failure Irritable bowel syndrome with constipation Irritable bowel syndrome Ischemic colitis (HCC) Unspecified vascular insufficiency of intestine Type 2 diabetes mellitus with hemoglobin A1c goal of less than 7.5% (HCC) COPD, group B, 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 (HCC) Chronic hypoxemic respiratory failure (HCC) Chronic respiratory failure documented in this encounter Advance Directives Documents on File Type Date Recorded Patient Rouge Sifter And Miller Expl anation Advanced 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
--- OUTSIDE RECORDS SUMMARY | 2023-06-18 03:13 | External Medical Summary | Summary of Care ---
Author Name Unknown Organization [place] [address] Care Team Providers Care Surgical Instrument Maker Name Role Phone Marcela Pinto MD Primary Care Provider + Reason for Visit * Reason Comments case management NEW CM enrollment / Week #3 post hosp dc follow up Encounter Details Date Type Department Care Team Description 03/21/2021 Vocational Training Teacher Care Coordination [address] [place] [address] Sigrid Montano RN [address] [place], [place] [id number] Chronic systolic heart failure (HCC)*; Type 2 diabetes mellitus with hemoglobin A1c goal of less than 7.5% ([facility]); COPD, group B, 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 ([facility]) Allergies Active Allergy Reactions Severity Noted Date Comments Valsartan 07/10/2010 Enalapril 05/21/2006 Escitalopram Oxalate Nausea/vomiting 10/11/2009 Nauseated Iodinated Diagnostic Agents Nausea/vomiting 05/2010 IV Contrast Iodine Hives 12/18/2009 IV Contrast Metoprolol Tartrate 11/18/2006 Made pulse low [place] Oil-Black Currant-Vit E 07/10/2010 Verapamil 03/21/2004 Bupropion Hcl 10/30/2009 Makes pt sick in the stomach documented as of this encounter (statuses as of 03/21/2021) Medications Medication Sig Dispensed Refills Start Date [...] Friday only. 30 Tab 11 03/16/2021 Active documented as of this encounter (statuses as of 03/21/2021) Active Problems Problem Noted Date Chronic systolic [...] as of this encounter (statuses as of 03/21/2021) Resolved Problems Problem Noted Date Resolved Date [...] Hypoxemia 10/08/2011 10/30/2015 Genetic Sleep Disorder Research Other*[id number] 07/25/2011 05/15/2016 Diverticulitis of colon 07/25/2011 01/06/20 [...] as of this encounter (statuses as of 03/21/2021) Immunizations Name Administration Dates Next Due COVID-19 mRNA, LNP-s, No Pre serve, 2-Dose Series ([employer]) 12/22/2020,2020 Hepatitis B, 20+ yrs 10/01/2017,04/21/2017,03/20 Pneumococcal [...] as of this encounter Progress Notes * Sigrid Montano RN - 03/21/2021 4:34 PM EDT Case Management Assessment Is this call for a hospital, prison or rehab facility discharge to home? Yes also NEW enrollment S: Reports: Weight gain: weighs on home scale Weight stable at 243 lbs [facility] nurse gave her a paper on heart failure and reportable symptoms Increased edema: denies Chest pain denies Increased shortness of breath: at her baseline today dyspnea with light housework (ie-dusting, making the bed, climbing the stairs), with heavy housework (ie-sweeping or vacuuming) and with outdoor activities oxygen 2L daytime / 4L sleep and concentrator Chills / Sweats / Fever: denies chills/sweats and denies fever Fall: denies any falls since last Care Management encounter assistive device:none Appetite: occasional nausea but none today Bowel: constipation Bladder: incontinent Chronic Pain: no complaints today Does Patient have Type 2 DM ? Yes. Does this patient take sulfonylureas and/or basal insulin? Yes. 1. Do you know what the symptoms of hypoglycemia are? yes 2. How often can you tell by your symptoms if your blood sugar is low? Always 3. In a typical week, how many times will your blood sugar go below 70 mg/dL? Never O: Phone visit for Week #3 hosp discharge follow up and NEW case mgmt enrollment assessment. Medications: Reviewed Epic, pt manages own meds, no changes, takes all medications as prescribed. and denies side effects Does this patient qualify for an annual wellness visit? Yes, Patient refused A: Patient Centered Prioritized Goals: 1. Patient will be able to repeat self-care guildelines for DTP 2. Patient will have DTP in place 3. Patient will adhere to fluid restrictions (if any) 4. Patient will successfully manage her diabetes 5. Patient will have COPD rescue kit in place Identified Barriers: Older than 70 years FUNCTIONAL STATUS: (Definition - assess ability to patient to manage their own care, includes evaluation of activities of daily living, and instrumental activities of daily living, and cognitive abilities status) ADL'S - Needs Assistance With: N/A as pt is independent IADL'S - Needs Assistance With: grocery shopping and transportation Cognitive and Mental Health: denies problems, alert and oriented x 3 and able to communicate, understand instructions, process information. P: Vocational Training Teacher Interventions: Explained/reinforced role of heel caser. Encouraged to call with any issues or concerns. Gave direct phone number and contact information. Reviewed HF symptom monitoring: -Weigh self daily [...] if at night -increased fatigue or vertigo Instructed to eat a healthy, well-balanced diet. [...] and <180mg/dl post-prandial. Target A1C is <7%. Discussed AD Reviewed Health Maintenance -- up to date PCP Notified of enrollment in CM/HM program: No SNP Member? No Re-evaluation of plan of care and progress towards goals achievement: Plan to follow-up as indicated by primary heel caser with note forwarded for review, instructed to call Vocational Training Teacher or Primary Care Provider with change in symptoms or as needed before next follow-up, verbalizes understanding and agrees with plan. Sigrid Montano RN Outpatient Vocational Training Teacher Covering for Cici Gama RN CCM documented in this encounter Plan of Treatment Upcoming Encounters Date Type Specialty Care Team Description 04/03/2021 Office Visit Internal Medicine Marcela Pinto MD 200 [facility] [place] [address] [phone] 06/13/2021 Office Visit Cardiology Dulce Merino CRNP [address] [place] [address] [phone] Health Maintenance Due Date Last Done Comments Zoster Vaccines (2 of 3) 08/31/2012 07/06/2012 DIABETES-EYE EXAM 08/07/2021 08/07/2020, , 09/14/2018, Additional history exists CKD GFR USE SMARTSET 64240 09/09/202103/09, 03/05/2021, 01/24/2021, Additional history exists DIABETES-HGBA1C EVERY 6 MONTHS 09/09/2021 03/09/2021, 12/05/2020, 08/10/2020, Additional history exists DIABETES-FOOT EXAM 12/21/2021 12/21/2020, 0 10/19/2019, 01/05/2019, Additional history exists CKD HGB USE SMARTSET 04354 03/09/202203/09, 03/09/2021, 01/24/2021, Additional history exists CKD PHOS USE SMARTSET 04257 03/09/2022 03/09/2021, 0 03/22/2019 Dexa Scan 08/08/2025 [...] Documents on File Type Date Recorded Patient Ventilated Rib Fitter Expl anation Advanced 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
--- OUTSIDE RECORDS SUMMARY | 2023-06-18 03:13 | External Medical Summary | Summary of Care ---
Author Name Unknown Organization [place] [address] Care Team Providers Care It Analyst Name Role Phone Marcela Pinto MD Primary Care Provider + Reason for Visit * Reason Onset Date Comments case management 03/26/2021 UTC #1, due for week #4 post hosp dc f/u Encounter Details Date Type Department Care Team Description 03/26/2021 Inspector Watch Assembly Telephone Care Coordination [address], [place] [id number] Sigrid Montano, RN [address] [place] [address] [phone] case management (UTC #1, due for week #4 p... Allergies Active Allergy Reactions Severity Noted Date Comments Valsartan 07/10/2010 Enalapril 05/21/2006 Escitalopram Oxalate Nausea/vomiting 10/11/2009 Nauseated Iodinated Diagnostic Agents Nausea/vomiting 05/2010 IV Contrast Iodine Hives 12/18/2009 IV Contrast Metoprolol Tartrate 11/18/2006 Made pulse low [place] Oil-Black Currant-Vit E 07/10/2010 Verapamil 03/21/2004 Bupropion Hcl 10/30/2009 Makes pt sick in the stomach documented as of this encounter (statuses as of 03/26/2021) Medications Medication Sig Dispensed Refills Start Date [...] as of this encounter (statuses as of 03/26/2021) Active Problems Problem Noted Date Chronic systolic [...] as of this encounter (statuses as of 03/26/2021) Resolved Problems Problem Noted Date Resolved Date [...] Hypoxemia 10/08/2011 10/30/2015 Genetic Sleep Disorder Research Other*[id number] 07/25/2011 05/15/2016 Diverticulitis of colon 07/25/2011 01/06/20 [...] as of this encounter (statuses as of 03/26/2021) Immunizations Name Administration Dates Next Due COVID-19 mRNA, LNP-s, No Pre serve, 2-Dose Series ([employer]) 12/22/2020,2020 Hepatitis B, 20+ yrs 10/01/2017,04/21/2017,03/20 Pneumococcal [...] Telephone Encounter - Sigrid Montano RN - 03/26/2021 4:00 PM EDT 1. Follow-up Post Discharge 2. Attempted Phone Call First Attempt 3. Call Unanswered Left Voicemail 4. Plan To attempt Follow-up documented in this encounter Plan of Treatment Upcoming Encounters Date Type Specialty Care Team Description 04/03/2021 Office Visit Internal Medicine Marcela Pinto MD [address] [facility] [place] [address] [phone] 06/13/2021 Office Visit Cardiology Dulce Merino CRNP [address] [facility] [place] [address] [phone] Health Maintenance Due Date Last Done Comments Zoster Vaccines (2 of 3) 08/31/2012 07/06/2012 DIABETES-EYE EXAM 08/07/2021 08/07/2020, , 09/14/2018, Additional history exists CKD GFR USE SMARTSET 98380 09/09/202103/09, 03/05/2021, 01/24/2021, Additional history exists DIABETES-HGBA1C EVERY 6 MONTHS 09/09/2021 03/09/2021, 12/05/2020, 08/10/2020, Additional history exists DIABETES-FOOT EXAM 12/21/2021 12/21/2020, 0 10/19/2019, 01/05/2019, Additional history exists CKD HGB USE SMARTSET 41657 03/09/202203/09, 03/09/2021, 01/24/2021, Additional history exists CKD PHOS USE SMARTSET 48625 03/09/2022 03/09/2021, 0 03/22/2019 Dexa Scan 08/08/2025 08/08/2020, 07/2 , 06/19/2010, [...] Documents on File Type Date Recorded Patient Rotary Engraver Expl anation Advanced 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
--- OUTSIDE RECORDS SUMMARY | 2023-06-18 03:14 | External Medical Summary ---
Author Name Unknown Address Unknown Organization K01:[facility] - [address] [place] [address] Laboratory Report Ordering Provider Test Date Status JOSE A JOHNSON 03/09/2021 10:49:11 Final Observation Date Value Abnormality Reference (Units ) Status Phosphate 03/09/2021 10:49:11 4.0 2.5-4.8 (m g/dL) Final Performing Location [facility] - [address] [facility] [address]
--- OUTSIDE RECORDS SUMMARY | 2023-06-18 03:14 | External Medical Summary | Summary of Care ---
Author Name Unknown Organization [place] [address] Care Team Providers Care Edger Machine Setter Name Role Phone Alex Pinto MD Primary Care Provider + Reason for Visit * Reason Onset Date Comments Medication Refill 03/05/2021 Encounter Details Date Type Department Care Team Description 03/05/2021 Refill General Internal Medicine [facility] [address] [facility] [place] [address] Alex Pinto MD [address] [place] [address] [phone] GENERAL OSTEOARTHROSIS Allergies Active Allergy Reactions Severity Noted Date Comments Valsartan 07/10/2010 Enalapril 05/21/2006 Escitalopram Oxalate Nausea/vomiting 10/11/2009 Nauseated Iodinated Diagnostic Agents Nausea/vomiting 05/2010 IV Contrast Iodine Hives 12/18/2009 IV Contrast Metoprolol Tartrate 11/18/2006 Made pulse low [place] Oil-Black Currant-Vit E 07/10/2010 Verapamil 03/21/2004 Bupropion Hcl 10/30/2009 Makes pt sick in the stomach documented as of this encounter (statuses as of 03/06/2021) Medications Medication Sig Dispensed Refills Start Date [...] of less than 7.0% ([facility]) USE TO TEST BLOOD SUGAR [...] Pain, Mild. 120 Tab 0 03/06/2021 Active HYDROcodone-Acetami nophen 5-325 MG Oral TabletIndications:G eneralized osteoarthritis Take 1 Tab by mouth every 6 hours as needed for Pain, Mild. 120 Tab 0 01/15/2021 1 Discontinu ed(Refill) documented as of this encounter (statuses as of 03/06/2021) Active Problems Problem Noted Date Chronic systolic [...] as of this encounter (statuses as of 03/06/2021) Resolved Problems Problem Noted Date Resolved Date [...] Hypoxemia 10/08/2011 10/30/2015 Genetic Sleep Disorder Research Other*[id number] 07/25/2011 05/15/2016 Diverticulitis of colon 07/25/2011 01/06/20 [...] as of this encounter (statuses as of 03/06/2021) Immunizations Name Administration Dates Next Due COVID-19 mRNA, LNP-s, No Pre serve, 2-Dose Series ([employer]) 12/22/2020,2020 Hepatitis B, 20+ yrs 10/01/2017,04/21/2017,03/20 Pneumococcal Conjugate Vacc, 13 Valent (Prevnar) 03/28/2015 Pneumococcal Polysaccharide PPV23 (Pneumovax) 05/21/2006 Seasonal Influenza, Quadriva lent, No Preserve, 6 Mons & Above, IM 06/16/2018,07/30/2017 Seasonal Influenza, Quadriva lent, No Preserve, Adjuvanted, 65+ Yrs, IM 06/22/2020 Seasonal Influenza, Quadriva lent, No Preserve, IM 08/15/2016,07/14/2015 Seasonal Influenza, Trivalen t, Adjuvanted, 65+ yrs 07/09/2019 Seasonal Influenza, Trivalen t, with Preserve, 3yr & Above, Split 08/04/2014,07/26/2013,06/26/2012,08/06,08/16/2010,07/18/2009,09/01/2008 ,08/12/2006 TD, Preservative Free 02/28/2009 TDAP (age 10 [...] Telephone Encounter - Alex Pinto MD - 03/06/2021 7:33 AM EDT Signed Prescriptions: Disp Refills HYDROcodone-Acetaminophen 5-325 MG Oral Ta*120 Tab0 Sig: Take 1 Tab by mouth every 6 hours as needed for Pain, Mild.Authorizing Provider: ALEX PINTO----- * Telephone Encounter - Alex Pinto MD - 03/06/2021 7:33 AM EDT I have reviewed the patients controlled substance dispensing history in the Prescription Drug Monitoring Program in compliance with the [facility] regulations before prescribing a controlled substance. Last [...] in Results Review. * Telephone Encounter - Renetta GuNICOL - 03/05/2021 8:29 AM EDT Pending Prescriptions: Disp Refills HYDROcodone-Acetaminophen 5-325 MG Oral T*120 Tab0 Sig: Take 1 Tab by mouth every 6 hours as needed for Pain, Mild. Last Office/Telemedicine Visit: 03/05/2021 Next Office Visit: 04/03/2021 Scheduled Provider(s): Alex Pinto MD If no future appointments scheduled, and last appointment is greater than a year ago, please schedule patient for a follow-up appointment Last date the medication was ordered: 01/15 Pharmacy: Is this request for a controlled substance?Yes [...] Labs: Lab Results Component Value Date/Time CREAT 1.01 01/24/2021 CREAT 1.0 05/27/2020 04:51 PM POTASSIUM 3.9 01/24/2021 POTASSIUM 4.0 05/27/2020 04:51 PM TSH 0.965 12/05/2020 TSH 0.42 07/27/2018 11:32 AM LDLCALC 75.20 12/05/2020 LDLCALC 95 07/27/2018 11:32 AM LDLDIRECT 85 12/05/2020 LDLDIRECT 97 07/27/2018 11:32 AM ALT 15 05/27/2020 04:51 PM HGBA1C 6.5 (A) 12/05/2020 HGBA1C 6.6 (H) 08/26/2019 02:55 PM documented in this encounter Plan of Treatment Upcoming Encounters Date Type Specialty Care Team Description 03/09/2021 Office Visit Cardiology Hammad Lopez, DO [address] [place] [address] [phone] 04/03/2021 Office Visit Internal Medicine Alex Pinto MD 200 [facility] [place] [address] [phone] Health Maintenance Due Date Last Done Comments Zoster Vaccines (2 of 3) 08/31/2012 07/06/2012 CKD PHOS USE SMARTSET 86225 03/22/2020 03/22/2019 DIABETES-HGBA1C EVERY 6 MONTHS 06/04/2021 12/05/2020, 08/10/2020, 06/28/2020, Additional history exists DIABETES-EYE EXAM 08/07/2021 08/07/2020, , 09/14/2018, Additional history exists CKD GFR USE SMARTSET 66610 09/05/202103/05, 01/24/2021, 01/03/2021, Additional history exists DIABETES-FOOT EXAM 12/21/2021 12/21/2020, 0 10/19/2019, 01/05/2019, Additional history exists CKD HGB USE SMARTSET 02540 01/24/202201/24, 01/03/2021, 12/05/2020, Additional history exists Dexa [...] Documents on File Type Date Recorded Patient Security Systems Technician Expl 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
--- OUTSIDE RECORDS SUMMARY | 2023-06-18 03:14 | External Medical Summary ---
Author Name Unknown Address Unknown Organization K0G[facility] [address] [place] [address] Laboratory Report Ordering Provider Test Date Status JOSE A JOHNSON 03/09/2021 10:49:11 Final Observation Date Value Abnormality Reference (Units ) Status Nucleated erythrocytes/100 leukocytes [Ratio] in Blood by Automated count 03/09/2021 10:49:11 Final Performing Location [facility] - [address] [place] [address]
--- OUTSIDE RECORDS SUMMARY | 2023-06-18 03:14 | External Medical Summary ---
Author Name Unknown Address Unknown Organization K01:[facility]ATORY [facility] [place] - [address] [place] [address] Laboratory Report Ordering Provider Test Date Status JOSE A JOHNSON 03/09/2021 10:49:11 Final Observation Date Value Abnormality Reference (Units ) Status Iron 03/09/2021 10:49:11 45 33-151 (ug /dL) Final Iron-binding capacity 03/09/2021 10:49:11 289 250-425 (ug/dL) Final Transferrin Sat % 03/09/2021 10:49:11 16 15 -55 (%) Final Performing Location LAB[facility] - [address] [place] [address]
--- OUTSIDE RECORDS SUMMARY | 2023-06-18 03:14 | External Medical Summary | Summary of Care ---
Author Name Unknown Organization [place] [address] Care Team Providers Care City Jailer Name Role Phone Marcela Pinto MD Primary Care Provider + Encounter Details Date Type Department Care Team Description 03/07/2021 Scan Encounter Unspecified Department <No scans attached> Allergies Active Allergy Reactions Severity Noted Date Comments Valsartan 07/10/2010 Enalapril 05/21/2006 Escitalopram Oxalate Nausea/vomiting 10/11/2009 Nauseated Iodinated Diagnostic Agents Nausea/vomiting 05/2010 IV Contrast Iodine Hives 12/18/2009 IV Contrast Metoprolol Tartrate 11/18/2006 Made pulse low [place] Oil-Black Currant-Vit E 07/10/2010 Verapamil 03/21/2004 Bupropion Hcl 10/30/2009 Makes pt sick in the stomach documented as of this encounter (statuses as of 03/08/2021) Medications Medication Sig Dispensed Refills Start Date [...] of less than 7.0% ([facility]) USE TO TEST BLOOD SUGAR 3 TIMES [...] as of this encounter (statuses as of 03/08/2021) Active Problems Problem Noted Date Chronic systolic [...] as of this encounter (statuses as of 03/08/2021) Resolved Problems Problem Noted Date Resolved Date [...] Hypoxemia 10/08/2011 10/30/2015 Genetic Sleep Disorder Research Other*[id number] 07/25/2011 05/15/2016 Diverticulitis of colon 07/25/2011 01/06/20 [...] as of this encounter (statuses as of 03/08/2021) Immunizations Name Administration Dates Next Due COVID-19 [...] Team Description 03/09/2021 [facility] Visit [facility] [address] [facility] [place] [address] [phone] 04/03/2021 Office Visit Internal Medicine Marcela Pinto MD [address] [place] [address] [phone] Health Maintenance Due Date Last Done Comments Zoster Vaccines (2 of 3) 08/31/2012 07/06/2012 CKD PHOS USE SMARTSET 08879 03/22/2020 03/22/2019 DIABETES-HGBA1C EVERY 6 MONTHS 06/04/2021 12/05/2020, 08/10/2020, 06/28/2020, Additional history exists DIABETES-EYE EXAM 08/07/2021 08/07/2020, , 09/14/2018, Additional history exists CKD GFR USE SMARTSET 98989 09/05/202103/05, 01/24/2021, 01/03/2021, Additional history exists DIABETES-FOOT EXAM 12/21/2021 12/21/2020, 0 10/19/2019, 01/05/2019, Additional history exists CKD HGB USE SMARTSET 54227 01/24/202201/24, 01/03/2021, 12/05/2020, Additional history exists Dexa [...] Documents on File Type Date Recorded 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
--- OUTSIDE RECORDS SUMMARY | 2023-06-18 03:14 | External Medical Summary ---
Author Name Unknown Address Unknown Organization K01:[facility] - [address] [facility] [address] Laboratory Report Ordering Provider Test Date Status KIMBERLY LITTLEJOHN 03/09/2021 10:49:11 Final Observation Date Value Abnormality Reference (Units ) Status Digoxin 03/09/2021 10:49:11 1.2 0.5-2.0 (n g/mL) Final Performing Location [facility] - [address] [facility] [address]
--- OUTSIDE RECORDS SUMMARY | 2023-06-18 03:14 | External Medical Summary | Summary of Care ---
Author Name Unknown Organization [place] [address] Care Team Providers Care Elder Assistant Name Role Phone Marcela Pinto MD Primary Care Provider + Reason for Visit * Reason Onset Date Comments case management 03/07/2021 [facility] Encounter Details Date Type Department Care Team Description 03/07/2021 Thermoforming Machine Operator Telephone Family Practice [facility] [address] [facility] [place] [address] Cici Gama RN [address] [place] [address] [phone] case management ([facility]) Allergies Active Allergy Reactions Severity Noted Date Comments Valsartan 07/10/2010 Enalapril 05/21/2006 Escitalopram Oxalate Nausea/vomiting 10/11/2009 Nauseated Iodinated Diagnostic Agents Nausea/vomiting 05/2010 IV Contrast Iodine Hives 12/18/2009 IV Contrast Metoprolol Tartrate 11/18/2006 Made pulse low [place] Oil-Black Currant-Vit E 07/10/2010 Verapamil 03/21/2004 Bupropion [...] Hypoxemia 10/08/2011 10/30/2015 Genetic Sleep Disorder Research Other*[id number] 07/25/2011 05/15/2016 Diverticulitis of colon 07/25/2011 01/06/20 [...] mRNA, LNP-s, No Pre serve, 2-Dose Series ([employer]) 12/22/2020,2020 Hepatitis B, 20+ yrs 10/01/2017,04/21/2017,03/20 Pneumococcal [...] Encounter - Cici Gama RN - 03/08/2021 2:08 PM EDT Received voicemail from patient, time stamped 12:08 PM, saying she is home now, and CM can call her. * Telephone Encounter - Cici Gama RN - 03/07/2021 1:41 PM EDT Attempted to contact patient for post hospital discharge follow up. No answer. Left message on voicemail requesting call back. [facility]. 1. Follow-up Post Discharge 2. Attempted Phone Call First Attempt 3. Call Unanswered Left Voicemail 4. Plan To attempt Follow-up documented in this encounter Plan of Treatment Upcoming Encounters Date Type Specialty Care Team Description 03/09/2021 Office Visit Cardiology Hammad Lopez, DO [address] [facility] [place] [address] [phone] 04/03/2021 Office Visit Internal Medicine [facility] [address] [facility] [address] [phone] Health Maintenance Due Date Last Done Comments Zoster Vaccines (2 of 3) 08/31/2012 07/06/2012 CKD PHOS USE SMARTSET 51125 03/22/2020 03/22/2019 DIABETES-HGBA1C EVERY 6 MONTHS 06/04/2021 12/05/2020, 08/10/2020, 06/28/2020, Additional history exists DIABETES-EYE EXAM 08/07/2021 08/07/2020, , 09/14/2018, Additional history exists CKD GFR USE SMARTSET 77726 09/05/202103/05, 01/24/2021, 01/03/2021, Additional history exists DIABETES-FOOT EXAM 12/21/2021 12/21/2020, 0 10/19/2019, 01/05/2019, Additional history exists CKD HGB USE SMARTSET 29535 01/24/202201/24, 01/03/2021, 12/05/2020, Additional history exists Dexa [...] Documents on File Type Date Recorded 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
--- OUTSIDE RECORDS SUMMARY | 2023-06-18 03:14 | External Medical Summary ---
Author Name Unknown Address Unknown Organization K01:[facility]ORY [facility] - [address] [place] [address] Laboratory Report Ordering Provider Test Date Status JOSE A JOHNSON 03/09/2021 10:49:11 Final Observation Date Value Abnormality Reference (Units ) Status Ferritin 03/09/2021 10:49:11 68 13-150 (ng /mL) Final Performing Location [facility] [address] [facility] [address]
--- OUTSIDE RECORDS SUMMARY | 2023-06-18 03:14 | External Medical Summary | Summary of Care ---
Author Name Unknown Organization [place] [address] Care Team Providers Care Long Term Acute Care Registered Nurse Name Role Phone Marcela Pinto MD Primary Care Provider + Reason for Visit * Reason Onset Date Comments case management 03/07/2021 [facility] Encounter Details Date Type Department Care Team Description 03/07/2021 Crown Assembly Machine Operator Telephone Family Practice [facility] [address] [facility] [place] [address] Cici Gama RN 200 [place] [address] [phone] case management ([facility]) Allergies Active Allergy Reactions Severity Noted Date Comments Valsartan 07/10/2010 Enalapril 05/21/2006 Escitalopram Oxalate Nausea/vomiting 10/11/2009 Nauseated Iodinated Diagnostic Agents Nausea/vomiting 05/2010 IV Contrast Iodine Hives 12/18/2009 IV Contrast Metoprolol Tartrate 11/18/2006 Made pulse low [place] Oil-Black Currant-Vit E 07/10/2010 Verapamil 03/21/2004 Bupropion Hcl 10/30/2009 Makes pt sick in the stomach documented as of this encounter (statuses as of 03/07/2021) Medications Medication Sig Dispensed Refills Start Date [...] as of this encounter (statuses as of 03/07/2021) Active Problems Problem Noted Date Chronic systolic [...] as of this encounter (statuses as of 03/07/2021) Resolved Problems Problem Noted Date Resolved Date [...] Hypoxemia 10/08/2011 10/30/2015 Genetic Sleep Disorder Research Other*[id number] 07/25/2011 05/15/2016 Diverticulitis of colon 07/25/2011 01/06/20 [...] as of this encounter (statuses as of 03/07/2021) Immunizations Name Administration Dates Next Due COVID-19 mRNA, LNP-s, No Pre serve, 2-Dose Series ([employer]) 12/22/2020,2020 Hepatitis B, 20+ yrs 10/01/2017,04/21/2017,03/20 Pneumococcal [...] Hammad Lopez, DO [address] [place] [address] 04/03/2021 Office Visit Internal Medicine Marcela Pinto MD [address] [place] [address] Health Maintenance Due Date Last Done Comments Zoster Vaccines (2 of 3) 08/31/2012 07/06/2012 CKD PHOS USE SMARTSET 20346 03/22/2020 03/22/2019 DIABETES-HGBA1C EVERY 6 MONTHS 06/04/2021 12/05/2020, 08/10/2020, 06/28/2020, Additional history exists DIABETES-EYE EXAM 08/07/2021 08/07/2020, , 09/14/2018, Additional history exists CKD GFR USE SMARTSET 34322 09/05/202103/05, 01/24/2021, 01/03/2021, Additional history exists DIABETES-FOOT EXAM 12/21/2021 12/21/2020, 0 10/19/2019, 01/05/2019, Additional history exists CKD HGB USE SMARTSET 49276 01/24/202201/24, 01/03/2021, 12/05/2020, Additional history exists Dexa [...] on File Type Date Recorded Patient Media Consultant Expl 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
--- OUTSIDE RECORDS SUMMARY | 2023-06-18 03:14 | External Medical Summary ---
Author Name Unknown Address Unknown Organization K0G:[facility] [place] [facility] - [address] [place] [address] Laboratory Report Ordering Provider Test Date Status JOSE A JOHNSON 03/09/2021 10:49:11 Final Observation Date Value Abnormality Reference (Units ) Status SYNC LEUKOCYTES IN BLOOD BY AUTOMATED COUNT 03/09/2021 10:49:11 13.96 Above high normal 4.00-10.80 (K/uL) Final Segs 03/09/2021 10:49:11 58.7 40.0-75.0 (%) Final Lymphs % 03/09/2021 10:49:11 26.4 18.0-42.0 (%) Final Monos 03/09/2021 10:49:11 11.2 Above high normal 1.0-11.0 (%) Final Eosinophils 03/09/2021 10:49:11 3.5 0.0-6.0 (%) Final Basos 03/09/2021 10:49:11 0.2 0.0-2.0 (%) Final Absolute Segs 03/09/2021 10:49:11 8.19 Above high normal 1.80-7.70 (K/uL) Final Lymphs, absolute 03/09/2021 10:49:11 3.69 1.00-4.80 (K/ul) Final Monos, Abs 03/09/2021 10:49:11 1.56 Above high normal 0.00-1.10 (K/uL) Final Eos, Abs 03/09/2021 10:49:11 0.49 0.00-0.70 (K/uL) Final Basos, Abs 03/09/2021 10:49:11 0.03 0.00-0.20 (K/uL) Final Performing Location [facility] - [address] [place] [address]
--- OUTSIDE RECORDS SUMMARY | 2023-06-18 03:14 | External Medical Summary ---
Author Name Unknown Address Unknown Organization K01:[facility] [address] [facility] [address] Laboratory Report Ordering Provider Test Date Status JOSE A JOHNSON 03/09/2021 10:49:11 Final Observation Date Value Abnormality Reference (Units ) Status Vitamin B12 03/09/2021 10:49:11 709 232-1,24 5 (pg/mL) Final Performing Location [facility] [place] [address] [facility] [address]
--- OUTSIDE RECORDS SUMMARY | 2023-06-18 03:14 | External Medical Summary | Summary of Care ---
Author Name Unknown Organization [place] [address] Care Team Providers Care Project Estimator Name Role Phone Marcela Pinto MD Primary Care Provider + Encounter Details Date Type Department Care Team Description 03/02/2021 Scan Encounter Unspecified Department <No scans attached> Allergies Active Allergy Reactions Severity Noted Date Comments Valsartan 07/10/2010 Enalapril 05/21/2006 Escitalopram Oxalate Nausea/vomiting 10/11/2009 Nauseated Iodinated Diagnostic Agents Nausea/vomiting 05/2010 IV Contrast Iodine Hives 12/18/2009 IV Contrast Metoprolol Tartrate 11/18/2006 Made pulse low [place] Oil-Black Currant-Vit E 07/10/2010 Verapamil 03/21/2004 Bupropion [...] 7.0% ([facility]) USE TO TEST BLOOD SUGAR 3 TIMES A DAY FOR DIAGNOSIS CODE OF E11.9 300 Strip 1 02/12/2021 Active Promethazine HCl 25 MG Oral Tablet (Phenergan)Indicatio ns:Generalized osteoarthritis TAKE 1 TABLET BY MOUTH EVERY 6 HOURS NEEDED FOR NAUSEA 30 Tab 0 02/19/2021 Active documented as of this encounter (statuses [...] Hypoxemia 10/08/2011 10/30/2015 Genetic Sleep Disorder Research Other*[id number] 07/25/2011 05/15/2016 Diverticulitis of colon 07/25/2011 01/06/20 [...] mRNA, LNP-s, No Pre serve, 2-Dose Series ([employer]) 12/22/2020,2020 Hepatitis B, 20+ yrs 10/01/2017,04/21/2017,03/20 Pneumococcal [...] Description 03/09/2021 Office Visit Cardiology Hammad Lopez O, DO [address] [facility] [place] [address] [phone] 04/03/2021 Office Visit Internal Medicine Marcela Pinto MD [address] [facility] [place] [address] [phone] Health Maintenance Due Date Last Done Comments Zoster Vaccines (2 of 3) 08/31/2012 07/06/2012 CKD PHOS USE SMARTSET 79857 03/22/2020 03/22/2019 DIABETES-HGBA1C EVERY 6 MONTHS 06/04/2021 12/05/2020, 08/10/2020, 06/28/2020, Additional history exists DIABETES-EYE EXAM 08/07/2021 08/07/2020, , 09/14/2018, Additional history exists CKD GFR USE SMARTSET 60238 09/05/202103/05, 01/24/2021, 01/03/2021, Additional history exists DIABETES-FOOT EXAM 12/21/2021 12/21/2020, 0 10/19/2019, 01/05/2019, Additional history exists CKD HGB USE SMARTSET 34879 01/24/202201/24, 01/03/2021, 12/05/2020, Additional history exists Dexa [...] Documents on File Type Date Recorded Patient Acds Block 1 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
--- OUTSIDE RECORDS SUMMARY | 2023-06-18 03:14 | External Medical Summary | Summary of Care ---
Author Name Unknown Organization [place] [address] Care Team Providers Care Manager Animation Name Role Phone Marcela Pinto MD Primary Care Provider + Reason for Visit * Reason Onset Date Comments case management 03/08/2021 [facility] Encounter Details Date Type Department Care Team Description 03/08/2021 Tile Installer Telephone Family Practice [facility] 200 [place] [address] Cici Gama RN 200 [place] [address] [phone] case management ([facility]) Allergies Active Allergy Reactions Severity Noted Date Comments Valsartan 07/10/2010 Enalapril 05/21/2006 Escitalopram Oxalate Nausea/vomiting 10/11/2009 Nauseated Iodinated Diagnostic Agents Nausea/vomiting 05/2010 IV Contrast Iodine Hives 12/18/2009 IV Contrast Metoprolol Tartrate 11/18/2006 Made pulse low [place] Oil-Black Currant-Vit E 07/10/2010 Verapamil 03/21/2004 Bupropion [...] Hypoxemia 10/08/2011 10/30/2015 Genetic Sleep Disorder Research Other*[id number] 07/25/2011 05/15/2016 Diverticulitis of colon 07/25/2011 01/06/20 [...] mRNA, LNP-s, No Pre serve, 2-Dose Series ([employer]) 12/22/2020,2020 Hepatitis B, 20+ yrs 10/01/2017,04/21/2017,03/20 Pneumococcal [...] No answer. Left message requesting call back. [facility]. 1. Follow-up Post Discharge 2. Attempted Phone Call Second Attempt 3. Call Unanswered Left Voicemail 4. Plan To attempt Follow-up documented in this encounter Plan of Treatment Upcoming Encounters Date Type Specialty Care Team Description 03/09/2021 Office Visit Cardiology Hammad Lopez, DO [address] [place] [address] 04/03/2021 Office Visit Internal Medicine Marcela Pinto MD [address] [place] [address] [phone] Health Maintenance Due Date Last Done Comments Zoster Vaccines (2 of 3) 08/31/2012 07/06/2012 CKD PHOS USE SMARTSET 50044 03/22/2020 03/22/2019 DIABETES-HGBA1C EVERY 6 MONTHS 06/04/2021 12/05/2020, 08/10/2020, 06/28/2020, Additional history exists DIABETES-EYE EXAM 08/07/2021 08/07/2020, , 09/14/2018, Additional history exists CKD GFR USE SMARTSET 17049 09/05/202103/05, 01/24/2021, 01/03/2021, Additional history exists DIABETES-FOOT EXAM 12/21/2021 12/21/2020, 0 10/19/2019, 01/05/2019, Additional history exists CKD HGB USE SMARTSET 73829 01/24/202201/24, 01/03/2021, 12/05/2020, Additional history exists Dexa [...] Documents on File Type Date Recorded 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
--- OUTSIDE RECORDS SUMMARY | 2023-06-18 03:14 | External Medical Summary ---
Author Name Unknown Address Unknown Organization K0G:LABORATORY [facility] [address] - [address] [place] [address] Laboratory Report Ordering Provider Test Date Status JOSE A JOHNSON 03/09/2021 10:49:11 Final Observation Date Value Abnormality Reference (Units ) Status BUN 03/09/2021 10:49:11 31 Above high normal 6-20 (mg/dL) Final Creatinine 03/09/2021 10:49:11 1.1 Above high normal 0.5-1.0 (mg/dL) Final Glomerular filtration rate/1.73 sq M.predicted [Volume Rate/Area] in Serum, Plasma or Blood by Creatinine-based formula (CKD-EPI) 03/09/2021 10:49:11 49.6 Below low normal >=60.0 (mL/min) Final Performing Location LABORATORY [facility] [employer] [address] - [address] [place] [address]
--- OUTSIDE RECORDS SUMMARY | 2023-06-18 03:14 | External Medical Summary | Summary of Care ---
Author Name Unknown Organization [place] [address] Care Team Providers Care Field Installation Technician Name Role Phone Marcela Pinto MD Primary Care Provider + Reason for Referral * Evaluate & Treat - Unlimited Visits (Within 10 days (routine)) Status Reason Specialty Diagnoses / Procedures Referred By Contact Referred To Contact Authorized Specialty Services Required Cardiovascular Medicine / Cardiology Diagnoses Chronic systolic heart failure (HCC) David Duke PA-C [address] [facility] [place] [address] Question Answer Referral Priority Within 10 days (routine) To which of the following clinics are you referring your patient? General Cardiology Clinic Comments Would like to establish with Dr. Lopez. Would like follow up around end of next week given recent dicsharge from hospital Electronically signed by David Duke PA-C at Reason for Visit * Reason Onset Date Comments Hospital Follow-Up Hospital Follow-Up 03/05/2021 Encounter Details Date Type Department Care Team Description 03/05/2021 Office Visit General Internal Medicine Ashok Romero [place] [address] [place] [address] David Duke PA-C [address] [facility] [place] [address] [phone] Hospital discharge follow-up*; Chronic systolic heart failure (HCC); Pulmonary HTN (HCC); JORDAN (obstructive sleep apnea); COPD, group B, 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 (HCC); Chronic hypoxemic respiratory failure (HCC); Asthma with severity to be determined; Paroxysmal atrial fibrillation (HCC); Type 2 diabetes mellitus with hemoglobin A1c goal of less than 7.5% (HCC); HTN, goal below 140/90; Diabetes mellitus with stage 3 chronic kidney disease (HCC); Hyperlipidemia with target LDL less than 100 [...] Kenzie Contour Test In Vitro Strip (Glucose Blood)Indications: Type 2 diabetes mellitus with hemoglobin A1c goal of less than 7.0% ([facility]) USE TO TEST BLOOD SUGAR 3 TIMES A DAY FOR DIAGNOSIS CODE OF E11.9 300 Strip 1 1 Active Promethazine HCl 25 MG Oral Tablet (Phenergan)Indicat ions:Generalized osteoarthritis TAKE 1 TABLET BY MOUTH EVERY 6 HOURS NEEDED FOR NAUSEA 30 Tab 0 1 Active Furosemide 40 MG Oral Tablet (Lasix)Indications :Chronic systolic heart failure (HCC) 80 mg in AM, 40 mg in PM 270 Tab 1 1 Active Spironolactone 25 MG Oral Tablet (Aldactone)Indicat ions:Chronic systolic heart failure (HCC) Take 0.5 Tabs by mouth daily. 30 Tab 3 1 Active Digoxin 125 MCG Oral Tablet (Lanoxin)Indicatio ns:Chronic systolic heart failure (HCC),Paroxysmal atrial fibrillation (HCC) Take 1 Tab by mouth daily. 30 Tab 11 1 Active Carvedilol 6.25 MG Oral Tablet (Coreg)Indications :Chronic systolic heart failure (HCC),Paroxysmal atrial fibrillation (HCC) Take 1 Tab by mouth 2 times a day. with food 180 Tab 3 1 Active dilTIAZem HCl ER Beads 240 MG CP24 Take 240 mg by mouth. One tablet daily 0 021 Discontinued(Me dication List Clean Up) Incruse Ellipta 62.5 MCG/INH Inhalation Aerosol Powder Breath ActivatedIndicatio ns:COPD, group B, 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 ([facility]) INHALE 1 PUFF BY MOUTH EVERY DAY 90 Each 3 0 021 Discontinued(Me dication List Clean Up) Furosemide 40 MG Oral Tablet (Lasix)Indications :Essential hypertension with goal blood pressure less than 130/80 Take 1 Tab by mouth daily. 90 Tab 1 1 021 Discontinued Carvedilol 3.125 MG Oral Tablet (Coreg) 3.125 mg 2 times a day with morning and evening meals. 0 1 021 Discontinued HYDROcodone-Acetam inophen 5-325 MG Oral TabletIndications: Generalized osteoarthritis Take 1 Tab by mouth every 6 hours as needed for Pain, Mild. 120 Tab 0 1 021 Discontinued(Re fill) Ciprofloxacin HCl 500 MG Oral Tablet (Cipro) TAKE 1 TABLET BY MOUTH EVERY 12 HOURS FOR 10 DAYS 20 Tab 0 1 021 Discontinued(Me dication List Clean Up) metroNIDAZOLE 500 MG Oral Tablet (Flagyl) TAKE 1 TAB BY MOUTH 3 TIMES A DAY FOR 10 DAYS. 30 Tab 0 1 021 Discontinued(Me dication List Clean Up) documented as of this [...] Hypoxemia 10/08/2011 10/30/2015 Genetic Sleep Disorder Research Other*[id number] 07/25/2011 05/15/2016 Diverticulitis of colon 07/25/2011 01/06/20 [...] mRNA, LNP-s, No Pre serve, 2-Dose Series ([employer]) 12/22/2020,2020 Hepatitis B, 20+ yrs 10/01/2017,04/21/2017,03/20 Pneumococcal [...] Sign Reading Time Taken Comments Blood Pressure 126/74 03/05/2021 8:32 AM EDT Pulse 88 03/05/2021 8:32 AM EDT Temperature 36.5 C (97.7 F) 03/05/2021 8 :32 AM EDT Respiratory Rate 13 03/05/2021 8:32 AM EDT Oxygen Saturation 98% 03/05/2021 8:3 2 AM EDT with 2 LPM during the day 4 LPM at night Inhaled Oxygen Concentration - - Weight 113.9 kg (251 lb 3.2 oz) 03/05/2021 8:32 AM EDT Height 165.1 cm (5' 5") 03/05/2021 8:32 AM EDT Body Mass Index 41.8 03/05/2021 8:32 AM EDT documented in this encounter Progress Notes * David Duke PA-C - 03/05/2021 8:18 AM EDT Subjective: Nina Harrington is a 80 year old female. Chief Complaint Patient presents with Hospital Follow-Up Hospital Follow-Up HPI: 80 y/o female with asthma, allergic rhinitis, JORDAN, HTN, HLD, DM II, IBS, HECTOR, COPD with chronic resp failure, GERD, morbid obesity, CKD III, asthma, ischemic colitis seen today for hospital follow up. Patient was admitted on 02/24/21 at [facility] with discharge on 03/01/21 for acute on chronic heart failure. Patient noted to have Lasix 80 mg BID decreased to 40 mg once daily about a month ago. Cardiology increased Lasix back to 80 mg in the morning and 40 mg at night. Started aldactone 12.5 mg daily. Coreg was increased to 6.25 mg BID with cardizem discontinued, digoxin 125 mcg started secondary to tachycardia from atrial fibrillation. Not on anticoagulation secondary to hx of GI bleeding. Cardiology notes cath in November with mild non-obstructive CAD. Notes she is sleeping better than she was. Not having orthopnea, PND. Edema continued to improve since hospital. Weight stable at 250 since discharge. Not on fluid restriction. Does not use salt. SOB is better. 2 L O2 continuous during the day and 4L at night. Recommended to have sleep study. Patient does not want to perform at this time as she did not tolerate. Denies chest pain. PMH: Patient Active Problem List Diagnosis Code [...] mellitus with stage 3 chronic kidney disease ([facility]) E11.22, N18.30 Paroxysmal atrial fibrillation ([facility]) I48.0 Chronic systolic heart failure ([facility]) I50.22 Pulmonary HTN ([facility]) I27.20 Chronic hypoxemic respiratory failure ([facility]) J96.11 Current Outpatient Medications Medication Sig Dispense Refill Carvedilol 6.25 MG Oral Tablet (Coreg) Take [...] BY MOUTH EVERY DAY 90 Tab 2 HYDROcodone-Acetaminophen 5-325 MG Oral Tablet Take 1 Tab by mouth every 6 hours as needed for Pain, Mild. 120 Tab 0 Lisinopril 2.5 MG Oral Tablet (Prinivil) Take [...] 1000 UNITS PO TABS one tablet daily Kenzie Contour Test In Vitro Strip (Glucose Blood) USE TO TEST BLOOD SUGAR 3 TIMES A DAY FOR DIAGNOSIS CODE OF E11.9 300 Strip 1 doxycycline 100 MG Tablet Take 100 mg by mouth 2 times a day. RESCUE KIT: Take for Colds. Blood Glucose Monitoring Suppl (CONTOUR MONITOR) w/Device KIT USE TO TEST BLOOD SUGAR 3 TIMES A DAYFOR DIAGNOSIS CODE OF E11.9 1 Kit 0 Lancets MISC Use as directed. USE [...] given to our office. 1 Each 1 Past Medical History: Diagnosis Date ACEI/ARB contraindicated Asthma Carpal tunnel syndrome DM type 2, goal: symptom mgmt (HCC) Generalized osteoarthritis HTN, goal below 140/90 Mixed dyslipidemia Past Surgical History: Procedure Laterality Date APPENDECTOMY W/OTHER PROCEDURE 1960 when removed gall bladder COLONOSCOPY, DIAGNOSTIC (RECTUM) 05/29/2016 poor prep, diverticulosis/inpt [facility] COLONOSCOPY, DIAGNOSTIC (RECTUM) 06/05/2017 diverticulosis, repeat 3 yrs/[facility] COLONOSCOPY, DIAGNOSTIC (RECTUM) 02/28/2018 adenomatous polyps, diverticulosis, repeat 3 yrs / [facility] COLONOSCOPY, DIAGNOSTIC (RECTUM) 05/08/2020 inflammatory tissue on bx, diverticulosis / [facility] COLONOSCOPY, W/BIOPSY 03/20/2012 hyperplastic polyps rpt 3 years. EGD, FLEXIBLE, DIAGNOSTIC 04/29/2014 normal/inpt [facility] EGD, FLEXIBLE, DIAGNOSTIC 05/29/2016 fundic submucosal mass/inpt [facility] EGD, FLEXIBLE, DIAGNOSTIC 05/08/2020 normal / [facility] EGD, FLEXIBLE,W/ENDOSCOPIC US 11/08/2016 inflammatory changes, stomach lesion, repeat EUS 1.5 yrs/[facility] EGD, FLEXIBLE,W/ENDOSCOPIC US 05/01/2018 stromal cell (smooth muscle) neoplasm, CBD dilation, repeat 2 yrs (needs OV prior)/[facility] EGD, FLEXIBLE,W/ENDOSCOPIC US 09/01/2020 leiomyoma / [facility] INCISIONAL HERNIA REPAIR, LAP, REDUCIBLE 09/29/2012 Repair of incarcerated supraumbilical (incisional) hernia with [facility] mesh 09/29/12 LIGATE/CUT OVIDUCT(S) REMOVAL OF TONSILS, AGE 12+ age 11 REMOVE GALLBLADDER 1960 SIGMOIDOSCOPY, DIAGNOSTIC 04/29/2014 stool in rectum/inpt [facility] SMALL BOWEL ENDOSCOPY, REMOVE FOREIGN [...] 1998 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 Objective: BP 126/74 | Pulse 88 | Temp 36.5 C (97.7 F) | Resp 13 | Ht 1.651 m (5' 5") | Wt 113.9 kg (251 lb 3.2 oz) | SpO2 98% Comment: with 2 LPM during the day 4 LPM at night | BMI 41.80 kg/m | BSA 2.29m 03/01/21: WBC 12.19 H/h 11.6/36.6 plt 355 Bun/cr 23/0.88 Na 141 k 4.2 Physical Exam: Constitutional: No acute distress. Head: normocephalic, atraumatic Eyes: PERRL with intact EOM, no scleral icterus, injection, or nystagmus noted. Cardiovascular: RRR without rubs, murmurs, gallops. No peripheral edema. Pulmonary: Lungs diminished in the bases. No intercostal retractions. Abdomen: Bowel sounds present x4, soft, nontender. Neuro: In wheelchair. CN II-XII grossly intact. ASSESSMENT: Hospital discharge follow-up (Primary) - [facility] RECON CUR MED LIS Chronic systolic heart failure (HCC) - BASIC METABOLIC PANEL; Future; Expected date: 03/05/2021 - CARDIOLOGY REFERRAL OP Continue recommendations of cardiology above. She would like to switch her care over to Dr. Lopez from Dr. Meza. Update BMP today. No lower extremity edema noted. +1 at time of discharge. Weight stable. Na <2 grams. Pulmonary HTN (HCC) Recommended formal sleep study, but patient refuses. Discussed can lead to worsening pulmonary HTN,heart failure, atrial fibrillation, HTN, restful sleep. JORDAN (obstructive sleep apnea) As above. COPD, group B, 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 (HCC) Continue current O2.Follows with [facility] pulmonology. Chronic hypoxemic respiratory failure (HCC) Asthma with severity to be determined Paroxysmal atrial fibrillation (HCC) No anticoagulation secondary to GI bleed in past. S/p Watchman procedure. Rate controlled today. Type 2 diabetes mellitus with hemoglobin A1c goal of less than 7.5% (HCC) On amaryl. Last A1C 6.8. Could consider easing dose. HTN, goal below 140/90 Controlled with above regimen. Diabetes mellitus with stage 3 chronic kidney disease (HCC) Hyperlipidemia with target LDL less than 100 Continue Lipitor. Follow Up: Return in about 1 month (around 04/05/2021), or if symptoms worsen or fail to improve. David Duke PA-C documented in this encounter Plan of Treatment Upcoming Encounters Date Type Specialty Care Team Description 03/09/2021 Office Visit Cardiology [facility] O, DO [address] [facility] [place] [address] [phone] 04/03/2021 Office Visit Internal Medicine Marcela Pinto MD [address] [place] [address] [phone] Scheduled Referrals Name Type Priority Associated Diagnoses Orde r Schedule CARDIOLOGY REFERRAL OP Referral Within 10 days (routine) Chronic systolic heart failure (HCC) Ordered: 03/05/2021 Health Maintenance Due Date Last Done Comments Zoster Vaccines (2 of 3) 08/31/2012 07/06/2012 CKD PHOS USE SMARTSET 39318 03/22/2020 03/22/2019 DIABETES-HGBA1C EVERY 6 MONTHS 06/04/2021 12/05/2020, 08/10/2020, 06/28/2020, Additional history exists DIABETES-EYE EXAM 08/07/2021 08/07/2020, , 09/14/2018, Additional history exists CKD GFR USE SMARTSET 80492 09/05/202103/05, 01/24/2021, 01/03/2021, Additional history exists DIABETES-FOOT EXAM 12/21/2021 12/21/2020, 0 10/19/2019, 01/05/2019, Additional history exists CKD HGB USE SMARTSET 48912 01/24/202201/24, 01/03/2021, 12/05/2020, Additional history exists Dexa [...] filedocumented as of this encounter Results * BASIC METABOLIC PANEL (03/05/2021 9:05 AM EDT) BUN 26(H) 6 - 20 mg/dL [facility] [place] [facility] Creatinine 0.9 0.5 - 1.0 mg/dL [facility] [place] [facility] Estimated Glomerular Filtration Rate 57.4(L)Comment:If patient is , multiply estimated GFR by 1.159. >=60.0 mL/min [facility] [place] [facility] Sodium 141 135 - 146 mmol/L [facility] [place] [facility] Potassium 4.8 3.5 - 5.1 mmol/L [facility] [place] [facility] Chloride 100 98 - 107 mmol/L [facility] [place] [facility]- CO2 36(H) 22 - 32 mmol/L [facility] [place] [address]- Anion Gap 5(L) 7 - 15 mmol/L [facility] Glucose 142(H) 70 - 120 mg/dL [facility] Calcium 9.6 8.4 - 10.2 mg/dL [facility] [place] [facility]- Specimen Blood - Venous blood specime n (specimen) [place] [address] [place] [address] documented in this encounter Visit Diagnoses Diagnosis Hospital discharge follow-up- Primary Other follow-up examination Chronic systolic heart failure (HCC) Chronic systolic heart failure Pulmonary HTN (HCC) Other chronic pulmonary heart diseases JORDAN (obstructive sleep apnea) Obstructive sleep apnea (adult) (pediatric) COPD, group B, 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 ([facility]) Chronic hypoxemic respiratory failure ([facility]) Chronic respiratory failure Asthma with severity to be determined Paroxysmal atrial fibrillation ([facility]) Atrial fibrillation Type 2 diabetes mellitus with hemoglobin A1c goal of less than 7.5% ([facility]) HTN, goal below 140/90 Unspecified essential hypertension Diabetes mellitus with stage 3 chronic kidney disease ([facility]) Type II or unspecified type diabetes mellitus with renal manifestations, not stated as uncontrolled Hyperlipidemia with target LDL less than 100 Other and unspecified hyperlipidemia documented in this encounter Advance Directives Documents on File Type Date Recorded 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
--- OUTSIDE RECORDS SUMMARY | 2023-06-18 03:14 | External Medical Summary ---
Author Name Unknown Address Unknown Organization [id number]:[facility] [place] [address] [place] [address] Laboratory Report Ordering Provider Test Date Status JOSE A JOHNSON 03/09/2021 10:49:11 Final Observation Date Value Abnormality Reference (Units ) Status HbA1C 03/09/2021 10:49:11 7.2 Above high normal 4. 0-5.6 (%) Final Performing Location LABORATORY C - [address] [facility] [address]
--- OUTSIDE RECORDS SUMMARY | 2023-06-18 03:14 | External Medical Summary ---
Author Name Unknown Address Unknown Organization [id number][facility] [address] [place] [address] Laboratory Report Ordering Provider Test Date Status JOSE A JOHNSON 03/09/2021 10:49:11 Final Observation Date Value Abnormality Reference (Units ) Status WBC, Total 03/09/2021 10:49:11 13.96 Above high normal 4 .00-10.80 (K/uL) Final RBC 03/09/2021 10:49:11 4.14 3.85-5.15 (M/uL) Final Hemoglobin 03/09/2021 10:49:11 11.8 Below low normal 12 .0-15.3 (g/dL) Final HCT 03/09/2021 10:49:11 38.8 36.0-45.2 (%) Final MCV 03/09/2021 10:49:11 93.7 81.5-97.5 (fL) Final MCH 03/09/2021 10:49:11 28.5 27.0-34.0 (pg) Final MCHC 03/09/2021 10:49:11 30.4 Below low normal 32. 0-36.0 (g/dL) Final RDW 03/09/2021 10:49:11 14.1 11.5-15.5 (%) Final Platelets 03/09/2021 10:49:11 385 140-400 (K /uL) Final MPV 03/09/2021 10:49:11 10.2 6.6-11.1 ( fL) Final Performing Location LAB[facility]ATORY [facility] 0 - [address] [place] [address]
--- OUTSIDE RECORDS SUMMARY | 2023-06-18 03:15 | External Medical Summary | Summary of Care ---
Author Name Unknown Organization [place] [address] Care Team Providers Care Therapeutic Assistant Name Role Phone Marcela Pinto MD Primary Care Provider + Reason for Visit * Reason Onset Date Comments Fax 01/22/2021 Encounter Details Date Type Department Care Team Description 01/22/2021 Telephone General Internal Medicine [facility] [address] [facility] [place] [address] Marcela Pinto MD [address] [place] [address] [phone] Fax Allergies Active Allergy Reactions Severity Noted Date Comments Valsartan 07/10/2010 Enalapril 05/21/2006 Escitalopram Oxalate Nausea/vomiting 10/11/2009 Nauseated Iodinated Diagnostic Agents Nausea/vomiting 05/2010 IV Contrast Iodine Hives 12/18/2009 IV Contrast Lisinopril 05/21/2006 Metoprolol Tartrate 11/18/2006 Made pulse low [place] Oil-Black Currant-Vit E 07/10/2010 Verapamil 03/21/2004 Bupropion Hcl 10/30/2009 Makes pt sick in the stomach documented as of this encounter (statuses as of 02/12/2021) Medications Medication Sig Dispensed Refills Start Date [...] OF E11.9 1 Kit 0 0 Active dilTIAZem HCl ER Beads 240 MG CP24 Take 240 mg by mouth. One tablet daily 0 Active ondansetron ODT (ZOFRAN) [address] 8 mg on tongue every 8 hours as needed for Nausea. dissolve on tongue. 0 Active doxycycline 100 MG Tablet Take 100 mg by mouth 2 times a day. RESCUE KIT: Take for Colds. 0 Active Incruse Ellipta 62.5 MCG/INH Inhalation Aerosol Powder Breath ActivatedIndicatio ns:COPD, group B, 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 ([facility]) INHALE 1 PUFF BY MOUTH EVERY DAY 90 Each 3 0 Active Additional Information Patient not taking. Reported on 12/21/2020 methIMAzole 5 MG Oral Tablet (TAPAZOLE) Take 5 mg by mouth daily. 0 0 Active [...] EVERY DAY 90 Tab 1 1 Active Furosemide 40 MG Oral Tablet (Lasix)Indications :Essential hypertension with goal blood pressure less than 130/80 Take 1 Tab by mouth daily. 90 Tab 1 1 Active Additional Information Patient taking differently: 80 mg Oral DAILY, Patient reports increased by physician at [facility], Reported on 12/21/2020 Combivent Respimat 20-100 MCG/ACT Inhalation Aerosol Solution (Ipratropium-Albut reg)Indications:A sthma with severity to be determined,COPD, moderate (HCC) TAKE 1 PUFF BY MOUTH 4 TIMES A DAY 12 g 3 1 Active Promethazine HCl 25 MG Oral Tablet (Phenergan)Indicat ions:Generalized osteoarthritis TAKE 1 TABLET BY MOUTH EVERY 6 HOURS NEEDED FOR NAUSEA 30 Tab 0 1 Active Carvedilol 3.125 MG Oral Tablet (Coreg) 3.125 mg 2 times a day with morning and evening meals. 0 1 Active Lisinopril 2.5 MG Oral Tablet (Prinivil) Take 2.5 mg by mouth daily. 0 1 Active HYDROcodone-Acetam inophen 5-325 MG Oral TabletIndications: Generalized osteoarthritis Take 1 Tab by mouth every 6 hours as needed for Pain, Mild. 120 Tab 0 1 Active Ciprofloxacin HCl 500 MG Oral Tablet (Cipro) TAKE 1 TABLET BY MOUTH EVERY 12 HOURS FOR 10 DAYS 20 Tab 0 1 Active metroNIDAZOLE 500 MG Oral Tablet (Flagyl) TAKE 1 TAB BY MOUTH 3 TIMES A DAY FOR 10 DAYS. 30 Tab 0 1 Active Glucose Blood (YEIMY CONTOUR TEST) STRPIndications:Ty pe 2 diabetes mellitus with hemoglobin A1c goal of less than 7.0% ([facility]) USE TO TEST BLOOD SUGAR 3 TIMES A DAY FOR DIAGNOSIS CODE OF E11.9 300 Strip 1 0 021 Discontinued(Re fill) dicyclomine (BENTYL) 20 MG TabletIndications: Chronic constipation Take 1 Tab by mouth daily. 90 Tab 2 0 021 Discontinued Atorvastatin Calcium 40 MG Oral Tablet (LIPITOR)Indicatio ns:Hyperlipidemia with target LDL less than 100 TAKE 1 TABLET BY MOUTH EVERY DAY 90 Tab 1 0 021 Discontinued documented as of this encounter (statuses as of 02/12/2021) Active Problems Problem Noted Date Asthma in remission 01/09/2021 Asthma, mild persistent 01/09/2021 Asthma, moderate persistent 01/09/2021 Asthma, severe persistent 01/09/2021 Intermittent asthma with reliever use up to twice per week 01/09/2021 Paroxysmal atrial fibrillation Diabetes mellitus with stage [...] with severity to be determined Generalized osteoarthritis ACEI/ARB contraindicated documented as of this encounter (statuses as of 02/12/2021) Resolved Problems Problem Noted Date Resolved Date Body mass index (BMI) of 40.0 to [...] Hypoxemia 10/08/2011 10/30/2015 Genetic Sleep Disorder Research Other*[id number] 07/25/2011 05/15/2016 Diverticulitis of colon 07/25/2011 01/06/20 [...] Mixed dyslipidemia 09/19/2009 Overview: Per Lipid Taxonomy. documented as of this encounter (statuses as of 02/12/2021) Immunizations Name Administration Dates Next Due COVID-19 mRNA, LNP-s, No Pre serve, 2-Dose Series ([employer]) 2020 Hepatitis B, 20+ yrs 10/01/2017,04/21/2017,03/20 Pneumococcal Conjugate [...] encounter Miscellaneous Notes * Telephone Encounter - GuRenetta mcdonaldNICOL - 02/12/2021 3:14 PM EDT Form is on Dr Pinto's desk awaiting signature. * Telephone Encounter - Crystal Villarreal OSA - 02/08/2021 6:02 PM EDT [facility] calling in to check on the status of previous message/form. Please return fax that needed the initials/date. They are also requesting last chart note to be sent along with the form as well. * Telephone Encounter - Riccardo Renetta YoussefNICOL - 02/02/2021 12:48 PM EDT Form is in Dr Patino folder. Will await signature. Thank you * Telephone Encounter - Cari Singleton PHARM Tech - 02/01/2021 5:03 PM EDT Mar from [facility] calling to request order be refaxed as doctor's initials and date were not on order. Please advise and refax to [phone]. Thanks, Cari Singleton Electron Beam Operator [facility] Refill Call [facility] 02/01/2021,5:05 PM * Telephone Encounter - Riccardo Samantha, LPN - 01/25/2021 3:59 PM EDT Form is in folder on Dr Pinto's desk, once she signs I will fax. Thank you * Telephone Encounter - Tamara Ortega PHARM Tech - 01/25/2021 9:02 AM EDT Pt calling to check on status of testing supplies. Caller can be reached at [phone]. Thank you, Tamara Ortega CPhT Elevator Service Mechanic [facility] 01/25/2021, 9:02 AM * Telephone Encounter - Renetta Gu LPN - 01/22/2021 4:43 PM EDT Awaiting paperwork to complete for patient. * Telephone Encounter - Lindsey Quintana CPhT - 01/22/2021 4:31 PM EDT Pt calling in states she was needing to let office know brand of strips she uses. Pt states she uses [employer] strips and Monitor. Thank You, Lindsey Quintana CPhT Elevator Service Mechanic [facility] 01/22/2021, 4:32 PM * Telephone Encounter - Renetta Gu LPN - 01/22/2021 4:26 PM EDT Called number below to fax to [phone]. Thank you * Telephone Encounter - Crystal Miranda OSA - 01/22/2021 3:17 PM EDT Received a call asking if fax was received by office. Name/Company sending fax: [facility] What fax is pertaining to: Diabetic supplies script and last office notes request Date(s) they sent request: 01/18/21 Verified fax number they are sending to is correct (Y or N): [phone] Callback Number for the clinic to call to verified if fax was received: [phone] documented in this encounter Plan of Treatment Upcoming Encounters Date Type Specialty Care Team Description 04/10/2021 Office Visit Internal Medicine Marcela Pinto MD [address] [place] [address] [phone] Health Maintenance Due Date Last Done Comments Zoster Vaccines (2 of 3) 08/31/2012 07/06/2012 CKD PHOS USE SMARTSET 40254 03/22/2020 03/22/2019 COVID-19 Vaccine (2 - Pfizer 2-dose series) 12/22/2020 2020 DIABETES-HGBA1C EVERY 6 MONTHS 06/04/2021 12/05/2020, 08/10/2020, 06/28/2020, Additional history exists CKD GFR USE SMARTSET 22897 07/26/202101/24, 01/03/2021, 12/05/2020, Additional history exists DIABETES-EYE EXAM 08/07/2021 08/07/2020, , 09/14/2018, Additional history exists DIABETES-FOOT EXAM 12/21/2021 12/21/2020, 0 10/19/2019, 01/05/2019, Additional history exists CKD HGB USE SMARTSET 89357 01/24/202201/24, 01/03/2021, 12/05/2020, Additional history exists Dexa Scan 08/08/2025 08/08/2020, 04/13, 06/19/2010, Additional history exists DTaP,Tdap,and Td Vaccines (2 - Td) 06/04/2028 06/04/2018, 02/28/2009 Pneumococcal Vaccine: 65+ Years Completed 03/28/2015, 05/21/2006 Influenza Vaccine (FLU shot) Completed 07/2020, 07/09/2019, 06/16/2018, Additional history exists MENINGOCOCCAL (MENACTRA/MENVEO) Aged Out No longer eligible based on patient's age to complete this topic documented as of this encounter Implants Not on filedocumented as of this encounter Advance Directives Documents on File Type Date Recorded Patient Polymerization Oven Tender 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
--- OUTSIDE RECORDS SUMMARY | 2023-06-18 03:15 | External Medical Summary | Summary of Care ---
Author Name Unknown Organization [place] [address] Care Team Providers Care Director Manufacturing Engineering Name Role Phone Marcela Pinto MD Primary Care Provider + Reason for Visit * Reason Onset Date Comments Test Results 03/05/2021 Encounter Details Date Type Department Care Team Description 03/05/2021 Telephone General Internal Medicine [facility] [address] [facility] [place] [id number] Marcela Pinto MD [address] [place] [address] [phone] Test Results Allergies Active Allergy Reactions Severity Noted Date Comments Valsartan 07/10/2010 Enalapril 05/21/2006 Escitalopram Oxalate Nausea/vomiting 10/11/2009 Nauseated Iodinated Diagnostic Agents Nausea/vomiting 05/2010 IV Contrast Iodine Hives 12/18/2009 IV Contrast Metoprolol Tartrate 11/18/2006 Made pulse low [place] Oil-Black Currant-Vit E 07/10/2010 Verapamil 03/21/2004 Bupropion Hcl 10/30/2009 Makes pt sick in the stomach documented as of this encounter (statuses as of 03/05/2021) Medications Medication Sig Dispensed Refills Start Date [...] mg by mouth daily. 0 12/13/2020 Active HYDROcodone-Acetamin ophen 5-325 MG Oral TabletIndications:Ge neralized osteoarthritis Take 1 Tab by mouth every 6 hours as needed for Pain, Mild. 120 Tab 0 01/15/2021 Active Dicyclomine HCl 20 MG Oral Tablet [...] FOR NAUSEA 30 Tab 0 02/19/2021 Active Furosemide 40 MG Oral Tablet (Lasix)Indications:C [...] as of this encounter (statuses as of 03/05/2021) Active Problems Problem Noted Date Chronic systolic [...] as of this encounter (statuses as of 03/05/2021) Resolved Problems Problem Noted Date Resolved Date [...] Hypoxemia 10/08/2011 10/30/2015 Genetic Sleep Disorder Research Other*[id number] 07/25/2011 05/15/2016 Diverticulitis of colon 07/25/2011 01/06/20 [...] as of this encounter (statuses as of 03/05/2021) Immunizations Name Administration Dates Next Due COVID-19 mRNA, LNP-s, No Pre serve, 2-Dose Series ([employer]) 12/22/2020,2020 Hepatitis B, 20+ yrs 10/01/2017,04/21/2017,03/20 [...] Telephone Encounter - Mamta Ware CCMA - 03/05/2021 1:07 PM EDT Pt informed of results and verbalized understanding PARIS Arita * Telephone Encounter - Mamta Ware CCMA - 03/05/2021 1:06 PM EDT ----- Message from David Duke PA-C sent at 03/05/2021 12:31 PM EDT ----- Renal function stable. Continue current medication dosing. documented in this encounter Plan of Treatment Upcoming Encounters Date Type Specialty Care Team Description 03/09/2021 Office Visit Cardiology Hammad Lopez, DO [address] [facility] [place] [address] [phone] 04/03/2021 Office Visit Internal Medicine Marcela Pinto MD [address] [facility] [place] [address] [phone] Health Maintenance Due Date Last Done Comments Zoster Vaccines (2 of 3) 08/31/2012 07/06/2012 CKD PHOS USE SMARTSET 13758 03/22/2020 03/22/2019 DIABETES-HGBA1C EVERY 6 MONTHS 06/04/2021 12/05/2020, 08/10/2020, 06/28/2020, Additional history exists DIABETES-EYE EXAM 08/07/2021 08/07/2020, , 09/14/2018, Additional history exists CKD GFR USE SMARTSET 02502 09/05/202103/05, 01/24/2021, 01/03/2021, Additional history exists DIABETES-FOOT EXAM 12/21/2021 12/21/2020, 0 10/19/2019, 01/05/2019, Additional history exists CKD HGB USE SMARTSET 94381 01/24/202201/24, 01/03/2021, 12/05/2020, Additional history exists Dexa [...] Documents on File Type Date Recorded Patient Offset Press Operator Apprentice Expl 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
--- OUTSIDE RECORDS SUMMARY | 2023-06-18 03:15 | External Medical Summary | Summary of Care ---
Author Name Unknown Organization [place] [address] Care Team Providers Care Spray Blender Name Role Phone Alex Pinto MD Primary Care Provider + Reason for Visit * Reason Comments eRx-Medication Refill Encounter Details Date Type Department Care Team Description 02/16/2021 Refill General Internal Medicine [facility] [address] [place] [address] Alex Pinto MD [address] [place] [address] [phone] GENERAL OSTEOARTHROSIS Allergies Active Allergy Reactions Severity Noted Date Comments Valsartan 07/10/2010 Enalapril 05/21/2006 Escitalopram Oxalate Nausea/vomiting 10/11/2009 Nauseated Iodinated Diagnostic Agents Nausea/vomiting 05/2010 IV Contrast Iodine Hives 12/18/2009 IV Contrast Lisinopril 05/21/2006 Metoprolol Tartrate 11/18/2006 Made pulse low [place] Oil-Black Currant-Vit E 07/10/2010 Verapamil 03/21/2004 Bupropion Hcl 10/30/2009 Makes pt sick in the stomach documented as of this encounter (statuses as of 02/19/2021) Medications Medication Sig Dispensed Refills Start Date [...] Ellipta 62.5 MCG/INH Inhalation Aerosol Powder Breath ActivatedIndication s:COPD, group B, 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 ([facility]) INHALE 1 PUFF BY MOUTH EVERY [...] Oral Capsule Delayed Release (PriLOSEC)Indicatio ns:Ischemic colitis ([facility]) TAKE 1 CAPSULE BY MOUTH TWICE A DAY 180 Cap 1 0 Active Klor-Con M20 20 MEQ Oral Tablet Extended Release (Potassium Chloride Annalisa ER)Indications:HTN, goal below 140/90 TAKE 1 TABLET BY MOUTH EVERY DAY 90 Tab 1 1 Active Furosemide 40 MG Oral Tablet (Lasix)Indications: Essential hypertension with goal blood pressure less than 130/80 Take 1 Tab by mouth daily. 90 Tab 1 1 Active Additional Information Patient taking differently: 80 mg Oral DAILY, Patient reports increased by physician at [facility], Reported on 12/21/2020 Combivent Respimat 20-100 MCG/ACT Inhalation Aerosol Solution (Ipratropium-Albute rol)Indications:Ast hma with severity to be determined,COPD, moderate (HCC) TAKE 1 PUFF BY MOUTH 4 TIMES A DAY 12 g 3 1 Active Carvedilol 3.125 MG Oral Tablet (Coreg) 3.125 mg 2 times a day with morning and evening meals. 0 1 Active Lisinopril 2.5 MG Oral Tablet (Prinivil) Take 2.5 mg by mouth daily. 0 1 Active HYDROcodone-Acetami nophen 5-325 MG Oral TabletIndications:G eneralized osteoarthritis Take 1 Tab by mouth every 6 hours as needed for Pain, Mild. 120 Tab 0 1 Active Dicyclomine HCl 20 MG [...] less than 7.0% ([facility]) USE TO TEST BLOOD SUGAR 3 TIMES A DAY FOR DIAGNOSIS CODE OF E11.9 300 Strip 1 1 Active Promethazine HCl 25 MG Oral Tablet (Phenergan)Indicati ons:Generalized osteoarthritis TAKE 1 TABLET BY MOUTH EVERY 6 HOURS NEEDED FOR NAUSEA 30 Tab 0 1 Active Ciprofloxacin HCl 500 MG Oral Tablet (Cipro) TAKE 1 TABLET BY MOUTH EVERY 12 HOURS FOR 10 DAYS 20 Tab 0 1 Active metroNIDAZOLE 500 MG Oral Tablet (Flagyl) TAKE 1 TAB BY MOUTH 3 TIMES A DAY FOR 10 DAYS. 30 Tab 0 1 Active Promethazine HCl 25 MG Oral Tablet (Phenergan)Indicati ons:Generalized osteoarthritis TAKE 1 TABLET BY MOUTH EVERY 6 HOURS NEEDED FOR NAUSEA 30 Tab 0 1 02/20/20 21 Discontinued Ciprofloxacin HCl 500 MG Oral Tablet (Cipro) TAKE 1 TABLET BY MOUTH EVERY 12 HOURS FOR 10 DAYS 20 Tab 0 1 02/20/20 21 Discontinued metroNIDAZOLE 500 MG Oral Tablet (Flagyl) TAKE 1 TAB BY MOUTH 3 TIMES A DAY FOR 10 DAYS. 30 Tab 0 1 02/20/20 21 Discontinued documented as of this encounter (statuses as of 02/19/2021) Active Problems Problem Noted Date Asthma in remission 01/09/2021 Asthma, mild persistent 01/09/2021 Asthma, moderate persistent 01/09/2021 Asthma, severe persistent 01/09/2021 Intermittent asthma with reliever use up to twice per week 01/09/2021 Paroxysmal atrial fibrillation 1 Diabetes mellitus with [...] as of this encounter (statuses as of 02/19/2021) Resolved Problems Problem Noted Date Resolved Date [...] Hypoxemia 10/08/2011 10/30/2015 Genetic Sleep Disorder Research Other*[id number] 07/25/2011 05/15/2016 Diverticulitis of colon 07/25/2011 01/06/20 [...] as of this encounter (statuses as of 02/19/2021) Immunizations Name Administration Dates Next Due COVID-19 mRNA, LNP-s, No Pre serve, 2-Dose Series ([employer]izer) 2020 Hepatitis B, 20+ yrs 10/01/2017,04/21/2017,03/20 Pneumococcal [...] Telephone Encounter - Alex Pinto MD - 02/19/2021 2:14 PM EDT Signed Prescriptions: Disp Refills Promethazine HCl 25 MG Oral Tablet (Phener*30 Tab 0 Sig: TAKE 1 TABLET BY MOUTH EVERY 6 HOURS NEEDED FOR NAUSEA Authorizing Provider: ALEX PINTO Ciprofloxacin HCl 500 MG Oral Tablet (Cipr*20 Tab 0 Sig: TAKE 1 TABLET BY MOUTH EVERY 12 HOURS FOR 10 DAYS Authorizing Provider: ALEX PINTO metroNIDAZOLE 500 M G Oral Tablet (Flagyl) 30 Tab 0 Sig: TAKE 1 TAB BY MOUTH 3 TIMES A DAY FOR 10 DAYS. Authorizing Provider: ALEX PINTO * Telephone Encounter - Marly De Anda [facility] - 02/16/2021 10:50 PM EDT Pending Prescriptions: Disp Refills Promethazine HCl 25 MG Oral Tablet (Phene*30 Tab 0 Sig: TAKE 1 TABLET BY MOUTH EVERY 6 HOURS NEEDED FOR NAUSEA Ciprofloxacin HCl 500 MG Oral Tablet (Cip*20 Tab 0 Sig: TAKE 1 TABLET BY MOUTH EVERY 12 HOURS FOR 10 DAYS metroNIDAZOLE 500 MG Oral Tablet (Flagyl)*30 Tab 0 Sig: TAKE 1 TAB BY MOUTH 3 TIMES A DAY FOR 10 DAYS. * Telephone Encounter - Marly De Anda RPh - 02/16/2021 10:50 PM EDT Last prescribed for an acute issue. Forwarding to provider. Please authorize refill if appropriate. Thank you, Marly De Anda RPh PGY1 Vocational Rehabilitation Administrator 02/16/2021, 10:50 PM documented in this encounter Plan of Treatment Upcoming Encounters Date Type Specialty Care Team Description 04/03/2021 Office Visit Internal Medicine Alex Pinto MD [address] [facility] [place] [address] Health Maintenance Due Date Last Done Comments Zoster Vaccines (2 of 3) 08/31/2012 07/06/2012 CKD PHOS USE SMARTSET 93502 03/22/2020 03/22/2019 COVID-19 Vaccine (2 - Pfizer 2-dose series) 12/22/2020 2020 DIABETES-HGBA1C EVERY 6 MONTHS 06/04/2021 12/05/2020, 08/10/2020, 06/28/2020, Additional history exists CKD GFR USE SMARTSET 44539 07/26/202101/24, 01/03/2021, 12/05/2020, Additional history exists DIABETES-EYE EXAM 08/07/2021 08/07/2020, , 09/14/2018, Additional history exists DIABETES-FOOT EXAM 12/21/2021 12/21/2020, 0 10/19/2019, 01/05/2019, Additional history exists CKD HGB USE SMARTSET 34452 01/24/202201/24, 01/03/2021, 12/05/2020, Additional history exists Dexa [...] Documents on File Type Date Recorded 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
--- OUTSIDE RECORDS SUMMARY | 2023-06-18 03:15 | External Medical Summary | Summary of Care ---
Author Name Unknown Organization [place] [address] Care Team Providers Care Caravan [employer] Camping [employer] Manager Name Role Phone Marcela Pinto MD Primary Care Provider + Reason for Referral * Evaluate & Treat - Unlimited Visits (Within 10 days (routine)) Status Reason Specialty Diagnoses / Procedures Referred By Contact Referred To Contact Authorized Specialty Services Required Cardiovascular Medicine / Cardiology Diagnoses Chronic systolic heart failure (HCC) David Duke PA-C [address] [facility] [place] [address] Question Answer Referral Priority Within 10 days [...] Office Visit General Internal Medicine [facility] [address] [place] [address] David Duke PA-C [address] [facility] [place] [address] [phone] Hospital discharge follow-up*; Chronic systolic heart failure [...] Contrast Metoprolol Tartrate 11/18/2006 Made pulse low [place] Oil-Black Currant-Vit E 07/10/2010 Verapamil 03/21/2004 Bupropion [...] less than 7.0% ([facility]) USE TO TEST BLOOD SUGAR [...] ns:COPD, group B, 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 ([facility]) INHALE 1 PUFF BY MOUTH [...] and evening meals. 0 1 021 Discontinued Ciprofloxacin HCl 500 MG Oral Tablet [...] Hypoxemia 10/08/2011 10/30/2015 Genetic Sleep Disorder Research Other*[id number] 07/25/2011 05/15/2016 Diverticulitis of colon 07/25/2011 01/06/20 [...] mRNA, LNP-s, No Pre serve, 2-Dose Series ([employer]) 12/22/2020,2020 Hepatitis B, 20+ yrs 10/01/2017,04/21/2017,03/20 Pneumococcal [...] up. Patient was admitted on 02/24/21 at [facility] with discharge on 03/01/21 for acute on [...] A1c goal of less than 7.5% ([facility]) E11.9 Hypercalcemia E83.52 Elevated plasma metanephrines R79.89 Irritable bowel syndrome with constipation K58.1 Ischemic colitis ([facility]) K55.9 HECTOR (generalized anxiety disorder) F41.1 COPD, group B, 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 ([facility]) J44.9 Morbid obesity with BMI of 40.0-44.9, adult ([facility]) E66.01, Z68.41 Gastro-esophageal reflux disease without esophagitis K21.9 Diabetes mellitus with stage 3 chronic kidney disease ([facility]) E11.22, N18.30 Paroxysmal atrial fibrillation ([facility]) I48.0 Chronic systolic heart failure ([facility]) I50.22 Pulmonary HTN ([facility]) I27.20 Chronic hypoxemic respiratory failure ([facility]) J96.11 Current Outpatient Medications Medication [...] MEQ Oral Tablet Extended Release (Potassium Chloride [place] ER) TAKE 1 TABLET BY MOUTH EVERY [...] COLONOSCOPY, DIAGNOSTIC (RECTUM) 05/29/2016 poor prep, diverticulosis/inpt [facility] COLONOSCOPY, DIAGNOSTIC (RECTUM) 06/05/2017 diverticulosis, repeat 3 yrs/[facility] COLONOSCOPY, DIAGNOSTIC (RECTUM) 02/28/2018 adenomatous polyps, diverticulosis, repeat 3 yrs / [facility] COLONOSCOPY, DIAGNOSTIC (RECTUM) 05/08/2020 inflammatory tissue on bx, diverticulosis / [facility] COLONOSCOPY, W/BIOPSY 03/20/2012 hyperplastic polyps rpt 3 years. EGD, FLEXIBLE, DIAGNOSTIC 04/29/2014 normal/inpt [facility] EGD, FLEXIBLE, DIAGNOSTIC 05/29/2016 fundic submucosal mass/inpt [facility] EGD, FLEXIBLE, DIAGNOSTIC 05/08/2020 normal / [facility] EGD, FLEXIBLE,W/ENDOSCOPIC US 11/08/2016 inflammatory changes, stomach lesion, repeat EUS 1.5 yrs/[facility] EGD, FLEXIBLE,W/ENDOSCOPIC US 05/01/2018 stromal cell (smooth muscle) neoplasm, CBD dilation, repeat 2 yrs (needs OV prior)/[facility] EGD, FLEXIBLE,W/ENDOSCOPIC US 09/01/2020 leiomyoma / [facility] INCISIONAL HERNIA REPAIR, LAP, REDUCIBLE 09/29/2012 Repair of incarcerated supraumbilical (incisional) hernia with [facility] mesh 09/29/12 LIGATE/CUT OVIDUCT(S) REMOVAL OF TONSILS, AGE 12+ age 11 REMOVE GALLBLADDER 1960 SIGMOIDOSCOPY, DIAGNOSTIC 04/29/2014 stool in rectum/inpt [facility] SMALL BOWEL ENDOSCOPY, REMOVE FOREIGN BODY mesh from prior hernia surgery, wrapped around small bowel. 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 Chronic hypoxemic respiratory failure (HCC) Asthma [...] Visit Cardiology Hammad Lopez O, DO [address] [facility] [place] [address] [phone] 04/03/2021 Office Visit Internal Medicine Marcela Pinto MD [address] [place] [address] [phone] Scheduled Referrals Name Type Priority Associated Diagnoses Orde r Schedule CARDIOLOGY REFERRAL OP Referral Within 10 days (routine) Chronic systolic heart failure (HCC) Ordered: 03/05/2021 Health Maintenance Due Date Last Done Comments Zoster Vaccines (2 of 3) 08/31/2012 07/06/2012 CKD PHOS USE SMARTSET 81166 03/22/2020 03/22/2019 DIABETES-HGBA1C EVERY 6 MONTHS 06/04/2021 12/05/2020, 08/10/2020, 06/28/2020, Additional history exists DIABETES-EYE EXAM 08/07/2021 08/07/2020, , 09/14/2018, Additional history exists CKD GFR USE SMARTSET 82951 09/05/202103/05, 01/24/2021, 01/03/2021, Additional history exists DIABETES-FOOT EXAM 12/21/2021 12/21/2020, 0 10/19/2019, 01/05/2019, Additional history exists CKD HGB USE SMARTSET 03196 01/24/202201/24, 01/03/2021, 12/05/2020, Additional history exists Dexa [...] Chloride 100 98 - 107 mmol/L [facility] 56-02 CO2 36(H) 22 - 32 mmol/L [place] [address] Anion Gap 5(L) 7 - 15 mmol/L [facility] - Glucose 142(H) 70 - 120 mg/dL [facility] Calcium 9.6 8.4 - 10.2 mg/dL [facility] Specimen Blood - Venous blood specime n (specimen) [address] [place] [address] documented in this encounter Visit Diagnoses Diagnosis Hospital discharge follow-up- Primary Other follow-up examination Chronic systolic heart failure (HCC) Chronic systolic heart failure Pulmonary HTN (HCC) Other chronic pulmonary heart diseases JORDAN (obstructive sleep apnea) Obstructive sleep apnea (adult) (pediatric) COPD, group B, 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 ([facility]) Chronic hypoxemic respiratory failure (HCC) Chronic respiratory failure Asthma with severity to be determined Paroxysmal atrial fibrillation ([facility]) Atrial fibrillation Type 2 diabetes mellitus with hemoglobin A1c goal of less than 7.5% ([facility]) HTN, goal below 140/90 Unspecified essential hypertension Diabetes mellitus with stage 3 chronic kidney disease (HCC) Type II or unspecified type diabetes mellitus with renal manifestations, not stated as uncontrolled Hyperlipidemia with target LDL less than 100 Other and unspecified hyperlipidemia documented in this encounter Advance Directives Documents on File Type Date Recorded 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
--- OUTSIDE RECORDS SUMMARY | 2023-06-18 03:15 | External Medical Summary ---
Author Name Unknown Address Unknown Organization K09:[facility] [place] [address] Laboratory Report Ordering Provider Test Date Status ALOK MORGAN 03/05/2021 09:05:51 Final Observation Date Value Abnormality Reference (Units ) Status BUN 03/05/2021 09:05:51 26 Above high normal 6-20 (mg/dL) Final Creatinine 03/05/2021 09:05:51 0.9 0.5-1.0 (mg/dL) Final Glomerular filtration rate/1.73 sq M.predicted [Volume Rate/Area] in Serum, Plasma or Blood by Creatinine-based formula (CKD-EPI) 03/05/2021 09:05:51 57.4 Below low normal >=60.0 (mL/min) Final Performing Location [facility] [place] [address]
--- OUTSIDE RECORDS SUMMARY | 2023-06-18 03:15 | External Medical Summary | Summary of Care ---
Author Name Unknown Organization [place] [address] Care Team Providers Care Brass Chaser Name Role Phone Marcela Pinto MD Primary Care Provider + Reason for Visit * Reason Onset Date Comments Advice 02/06/2021 Fax 02/06/2021 Encounter Details Date Type Department Care Team Description 02/06/2021 Telephone General Internal Medicine [facility] [address] [facility] [place] [address] Marcela Pinto MD 200 [place] [address] [phone] Advice; Fax Allergies Active Allergy Reactions Severity Noted Date Comments Valsartan 07/10/2010 Enalapril 05/21/2006 Escitalopram Oxalate Nausea/vomiting 10/11/2009 Nauseated Iodinated Diagnostic Agents Nausea/vomiting 05/2010 IV Contrast Iodine Hives 12/18/2009 IV Contrast Lisinopril 05/21/2006 Metoprolol Tartrate 11/18/2006 Made pulse low [place] Oil-Black Currant-Vit E 07/10/2010 Verapamil 03/21/2004 Bupropion [...] OF E11.9 1 Kit 0 01/05/2020 Active dilTIAZem HCl ER Beads 240 MG [...] Ellipta 62.5 MCG/INH Inhalation Aerosol Powder Breath ActivatedIndications: COPD, group B, 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 ([facility]) INHALE 1 PUFF BY MOUTH EVERY DAY 90 Each 3 07/02/2020 Active Additional Information Patient not taking. Reported on 12/21/2020 methIMAzole 5 MG Oral Tablet (TAPAZOLE) Take 5 mg by mouth daily. 0 07/26/2020 Active Zafirlukast 20 MG Oral Tablet (ACCOLATE)Indications :Asthma with severity to be determined TAKE 1 TABLET BY MOUTH EVERY DAY 90 Tab 3 08/15/2020 Active Omeprazole 20 MG Oral Capsule Delayed Release (PriLOSEC)Indications :Ischemic colitis ([facility]) TAKE 1 CAPSULE BY MOUTH TWICE A DAY 180 Cap 1 10/05/2020 Active Klor-Con M20 20 MEQ Oral Tablet Extended Release (Potassium Chloride Annalisa ER)Indications:HTN, goal below 140/90 TAKE 1 TABLET BY MOUTH EVERY DAY 90 Tab 1 10/18/2020 Active Furosemide 40 MG Oral Tablet (Lasix)Indications:Es sential hypertension with goal blood pressure less than 130/80 Take 1 Tab by mouth daily. 90 Tab 1 11/08/2020 Active Additional Information Patient taking differently: 80 mg Oral DAILY, Patient reports increased by physician at [facility], Reported on 12/21/2020 Combivent Respimat 20-100 MCG/ACT Inhalation Aerosol Solution (Ipratropium-Albutero l)Indications:Asthma with severity to be determined,COPD, moderate (HCC) TAKE 1 PUFF BY MOUTH 4 TIMES A DAY 12 g 3 12/14/2020 Active Promethazine HCl 25 MG Oral Tablet (Phenergan)Indication s:Generalized osteoarthritis TAKE 1 TABLET BY MOUTH EVERY 6 HOURS NEEDED FOR NAUSEA 30 Tab 0 12/20/2020 Active Carvedilol 3.125 MG Oral Tablet (Coreg) 3.125 mg 2 times a day with morning and evening meals. 0 12/13/2020 Active Lisinopril 2.5 MG Oral Tablet (Prinivil) Take 2.5 mg by mouth daily. 0 12/13/2020 Active HYDROcodone-Acetamino phen 5-325 MG Oral TabletIndications:Gen eralized osteoarthritis Take 1 Tab by mouth every 6 hours as needed for Pain, Mild. 120 Tab 0 01/15/2021 Active Ciprofloxacin HCl 500 MG Oral Tablet (Cipro) TAKE 1 TABLET BY MOUTH EVERY 12 HOURS FOR 10 DAYS 20 Tab 0 01/17/2021 Active metroNIDAZOLE 500 MG Oral Tablet (Flagyl) TAKE 1 TAB BY MOUTH 3 TIMES A DAY FOR 10 DAYS. 30 Tab 0 01/17/2021 Active Dicyclomine HCl 20 MG Oral Tablet (Bentyl)Indications:C hronic constipation TAKE 1 TABLET BY MOUTH EVERY DAY 90 Tab 2 01/25/2021 Active documented as of this encounter (statuses [...] Hypoxemia 10/08/2011 10/30/2015 Genetic Sleep Disorder Research Other*[id number] 07/25/2011 05/15/2016 Diverticulitis of colon 07/25/2011 01/06/20 [...] encounter Miscellaneous Notes * Telephone Encounter - Tuyet Aragon OSA - 02/19/2021 1:07 PM EDT chart notes are missing and correction of diagnosis was not initialed on form * Telephone Encounter - Renetta Gu LPN - 02/14/2021 2:59 PM EDT Form is ready to fax. Thank you * Telephone Encounter - Lazaro Lilly OSA - 02/14/2021 1:22 PM EDT Nieves from [facility] states that Dr. Pinto just needs initial the form they are faxing andsend it back. * Telephone Encounter - Mamta Ware CCMA - 02/07/2021 12:38 PM EDT Called and informed company that we did not receive paperwork and provided them fax number [phone] to refax form [place] [facility] * Telephone Encounter - Kiana Roman OSA - 02/06/2021 5:59 PM EDT Emma from [facility] calling stating she sent over an order for the pt's diabetic supplies and is asking if the office has received this Please call Emma and advise documented in this encounter Plan of Treatment Upcoming Encounters Date Type Specialty Care Team Description 04/03/2021 Office Visit Internal Medicine Marcela Pinto MD [address] [facility] [place] [address] [phone] Health Maintenance Due Date Last Done Comments Zoster Vaccines (2 of 3) 08/31/2012 07/06/2012 CKD PHOS USE SMARTSET 89677 03/22/2020 03/22/2019 COVID-19 Vaccine (2 - Pfizer 2-dose series) 12/22/2020 2020 DIABETES-HGBA1C EVERY 6 MONTHS 06/04/2021 12/05/2020, 08/10/2020, 06/28/2020, Additional history exists CKD GFR USE SMARTSET 35195 07/26/202101/24, 01/03/2021, 12/05/2020, Additional history exists DIABETES-EYE EXAM 08/07/2021 08/07/2020, , 09/14/2018, Additional history exists DIABETES-FOOT EXAM 12/21/2021 12/21/2020, 0 10/19/2019, 01/05/2019, Additional history exists CKD HGB USE SMARTSET 20788 01/24/202201/24, 01/03/2021, 12/05/2020, Additional history exists Dexa [...] Documents on File Type Date Recorded Patient Belting 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 Advanced Directive
--- OUTSIDE RECORDS SUMMARY | 2023-06-18 03:15 | External Medical Summary | Summary of Care ---
Author Name Unknown Organization [place] [address] Care Team Providers Care Management Accounts Manager Name Role Phone Marcela Pinto MD Primary Care Provider + Reason for Visit * Reason Onset Date Comments Information 02/21/2021 Encounter Details Date Type Department Care Team Description 02/21/2021 Telephone General Internal Medicine [facility] [address] [place] [address] Marcela Pinto MD [address] [place] [address] [phone] Information Allergies Active Allergy Reactions Severity Noted Date Comments Valsartan 07/10/2010 Enalapril 05/21/2006 Escitalopram Oxalate Nausea/vomiting 10/11/2009 Nauseated Iodinated Diagnostic Agents Nausea/vomiting 05/2010 IV Contrast Iodine Hives 12/18/2009 IV Contrast Lisinopril 05/21/2006 Metoprolol Tartrate 11/18/2006 Made pulse low [place] Oil-Black Currant-Vit E 07/10/2010 Verapamil 03/21/2004 Bupropion Hcl 10/30/2009 Makes pt sick in the stomach documented as of this encounter (statuses as of 02/21/2021) Medications Medication Sig Dispensed Refills Start Date [...] Ellipta 62.5 MCG/INH Inhalation Aerosol Powder Breath ActivatedIndications :COPD, group B, 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 ([facility]) INHALE 1 PUFF BY MOUTH EVERY DAY [...] Oral Capsule Delayed Release (PriLOSEC)Indication s:Ischemic colitis ([facility]) TAKE 1 CAPSULE BY MOUTH TWICE A DAY 180 Cap 1 10/05/2020 Active Klor-Con M20 20 MEQ Oral Tablet Extended Release (Potassium Chloride Annalisa ER)Indications:HTN, goal below 140/90 TAKE 1 TABLET BY MOUTH EVERY DAY 90 Tab 1 10/18/2020 Active Furosemide 40 MG Oral Tablet (Lasix)Indications:E ssential hypertension with goal blood pressure less than 130/80 Take 1 Tab by mouth daily. 90 Tab 1 11/08/2020 Active Additional Information Patient taking differently: 80 mg Oral DAILY, Patient reports increased by physician at [facility], Reported on 12/21/2020 Combivent Respimat 20-100 MCG/ACT Inhalation Aerosol Solution (Ipratropium-Albuter ol)Indications:Asthm a with severity to be determined,COPD, moderate (HCC) TAKE 1 PUFF BY MOUTH 4 TIMES A DAY 12 g 3 12/14/2020 Active Carvedilol 3.125 MG Oral Tablet (Coreg) [...] [facility]) USE TO TEST BLOOD SUGAR 3 TIMES A DAY FOR DIAGNOSIS CODE OF E11.9 300 Strip 1 02/12/2021 Active Promethazine HCl 25 MG Oral Tablet (Phenergan)Indicatio ns:Generalized osteoarthritis TAKE 1 TABLET BY MOUTH EVERY 6 HOURS NEEDED FOR NAUSEA 30 Tab 0 02/19/2021 Active Ciprofloxacin HCl 500 MG Oral Tablet (Cipro) TAKE 1 TABLET BY MOUTH EVERY 12 HOURS FOR 10 DAYS 20 Tab 0 02/19/2021 Active metroNIDAZOLE 500 MG Oral Tablet (Flagyl) TAKE 1 TAB BY MOUTH 3 TIMES A DAY FOR 10 DAYS. 30 Tab 0 02/19/2021 Active documented as of this encounter (statuses as of 02/21/2021) Active Problems Problem Noted Date Asthma in [...] as of this encounter (statuses as of 02/21/2021) Resolved Problems Problem Noted Date Resolved Date [...] Hypoxemia 10/08/2011 10/30/2015 Genetic Sleep Disorder Research Other*[id number] 07/25/2011 05/15/2016 Diverticulitis of colon 07/25/2011 01/06/20 [...] as of this encounter (statuses as of 02/21/2021) Immunizations Name Administration Dates Next Due COVID-19 mRNA, LNP-s, No Pre serve, 2-Dose Series ([employer]) 2020 Hepatitis B, 20+ yrs 10/01/2017,04/21/2017,03/20 Pneumococcal [...] Telephone Encounter - Mamta Ware CCMA - 02/21/2021 4:35 PM EDT Received prior auth request fax from [employer] for Covermymeds for Promethazine HCL 25 mg tablets HAZEL: [id number] Submitted auth and it stated that it will take 1-3 business days for repsonse. [place] Arita documented in this encounter Plan of Treatment Upcoming Encounters Date Type Specialty Care Team Description 04/03/2021 Office Visit Internal Medicine Marcela Pinto MD [address] [place] [address] Health Maintenance Due Date Last Done Comments Zoster Vaccines (2 of 3) 08/31/2012 07/06/2012 CKD PHOS USE SMARTSET 62617 03/22/2020 03/22/2019 COVID-19 Vaccine (2 - Pfizer 2-dose series) 12/22/2020 2020 DIABETES-HGBA1C EVERY 6 MONTHS 06/04/2021 12/05/2020, 08/10/2020, 06/28/2020, Additional history exists CKD GFR USE SMARTSET 11028 07/26/202101/24, 01/03/2021, 12/05/2020, Additional history exists DIABETES-EYE EXAM 08/07/2021 08/07/2020, , 09/14/2018, Additional history exists DIABETES-FOOT EXAM 12/21/2021 12/21/2020, 0 10/19/2019, 01/05/2019, Additional history exists CKD HGB USE SMARTSET 56368 01/24/202201/24, 01/03/2021, 12/05/2020, Additional history exists Dexa [...] Documents on File Type Date Recorded Patient Attendant Honor Bar 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 Advanced Directive
--- OUTSIDE RECORDS SUMMARY | 2023-06-18 03:15 | External Medical Summary | Summary of Care ---
Author Name Unknown Organization [place] [address] Care Team Providers Care Radar Tester Name Role Phone Alex Pinto MD Primary Care Provider + Reason for Visit * Reason Comments eRx-Medication Refill Encounter Details Date Type Department Care Team Description 02/12/2021 Refill General Internal Medicine [facility] 200 [facility] [place], [place] [address] Alex Pinto MD [address] [place], [place] [id number] Hyperlipidemia with target LDL less than 100; Type 2 diabetes mellitus with hemoglobin A1c goal of less than 7.0% (HCC) Allergies Active Allergy Reactions Severity Noted Date Comments Valsartan 07/10/2010 Enalapril 05/21/2006 Escitalopram Oxalate Nausea/vomiting 10/11/2009 Nauseated Iodinated Diagnostic Agents Nausea/vomiting 05/2010 IV Contrast Iodine Hives 12/18/2009 IV Contrast Lisinopril 05/21/2006 Metoprolol Tartrate 11/18/2006 Made pulse low [place] Oil-Black Currant-Vit E 07/10/2010 Verapamil 03/21/2004 Bupropion [...] ns:COPD, group B, 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 ([facility]) INHALE 1 PUFF BY MOUTH [...] DAILY, Patient reports increased by physician at [facility], Reported on 12/21/2020 Combivent Respimat 20-100 MCG/ACT [...] 10 DAYS. 30 Tab 0 1 Active Dicyclomine HCl 20 MG Oral Tablet (Bentyl)Indication s:Chronic constipation TAKE 1 TABLET BY MOUTH EVERY DAY 90 Tab 2 1 Active Atorvastatin Calcium 40 MG Oral Tablet (Lipitor)Indicatio ns:Hyperlipidemia with target LDL less than 100 TAKE 1 TABLET BY MOUTH EVERY DAY 90 Tab 1 1 Active Yeimy Contour Test In Vitro Strip (Glucose Blood)Indications: Type 2 diabetes mellitus with hemoglobin A1c goal of less than 7.0% ([facility]) USE TO TEST BLOOD SUGAR 3 TIMES A DAY FOR DIAGNOSIS CODE OF E11.9 300 Strip 1 1 Active Glucose Blood (YEIMY CONTOUR TEST) STRPIndications:Ty pe 2 diabetes mellitus with hemoglobin A1c goal of less than 7.0% ([facility]) USE TO TEST BLOOD SUGAR 3 TIMES A DAY FOR DIAGNOSIS CODE OF E11.9 300 Strip 1 0 021 Discontinued(Re fill) Atorvastatin Calcium 40 MG Oral Tablet (LIPITOR)Indicatio [...] Hypoxemia 10/08/2011 10/30/2015 Genetic Sleep Disorder Research Other*[id number] 07/25/2011 05/15/2016 Diverticulitis of colon 07/25/2011 01/06/20 [...] mRNA, LNP-s, No Pre serve, 2-Dose Series (Doctor kinetic) 2020 Hepatitis B, 20+ yrs 10/01/2017,04/21/2017,03/20 Pneumococcal [...] Notes * Telephone Encounter - Frank Wooten [facility] - 02/12/2021 12:31 PM EDT Signed Prescriptions: Disp Refills Atorvastatin Calcium 40 MG Oral Tablet (Li*90 Tab 1 Sig: TAKE 1 TABLET BY MOUTH EVERY DAYAuthorizing Provider: ALEX PINTO User: FRANK WOOTEN Yeimy Contour Test In Vitro Strip (Glucose*300 St*1 Sig: USE TO TEST BLOOD SUGAR 3 TIMES A DAY FOR DIAGNOSIS CODE OF E11.9Authorizing Provider: ALEX PINTO User: MAIRA WOOTEN * Telephone Encounter - Frank Wooten [facility] - 02/12/2021 12:30 PM EDT Signed Prescriptions: Disp Refills Atorvastatin Calcium 40 MG Oral Tablet (Li*90 Tab 1 Sig: TAKE 1 TABLET BY MOUTH EVERY DAY Authorizing Provider: ALEX PINTO User: FRANK WOOTEN Yeimy Contour Test In Vitro Strip (Glucose*300 St*1 Sig: USE TO TEST BLOOD SUGAR 3 TIMES A DAY FOR DIAGNOSIS CODE OF E11.9 Authorizing Provider: ALEX PINTO Ordering User: FRANK WOOTEN * Telephone Encounter - María Wisdom, archeologist [facility] - 02/12/2021 11:27 AM EDT Pending Prescriptions: Disp Refills Atorvastatin Calcium 40 MG Oral Tablet (L*90 Tab 1 Sig: TAKE 1 TABLET BY MOUTH EVERY DAY Glucose Blood In Vitro Strip 300 St*1 Sig: USE TO TEST BLOOD SUGAR 3 TIMES A DAY FOR DIAGNOSIS CODE OF E11.9 Last Office/Telemedicine Visit: 12/21/2020 Next Office Visit: 04/10/2021 Scheduled Provider(s): Alex Pinto MD If no future appointments scheduled, and last appointment is greater than a year ago, please schedule patient for a follow-up appointment Last date the medication was ordered: 01/05/2020 Pharmacy: [id number] [id number] [facility] Is this request for [...] Team Description 04/10/2021 Office Visit Internal Medicine Alex Pinto MD [address] [place] [address] Health Maintenance Due Date Last Done Comments Zoster Vaccines (2 of 3) 08/31/2012 07/06/2012 CKD PHOS USE SMARTSET 87692 03/22/2020 03/22/2019 COVID-19 Vaccine (2 - Pfizer 2-dose series) 12/22/2020 2020 DIABETES-HGBA1C EVERY 6 MONTHS 06/04/2021 12/05/2020, 08/10/2020, 06/28/2020, Additional history exists CKD GFR USE SMARTSET 73065 07/26/202101/24, 01/03/2021, 12/05/2020, Additional history exists DIABETES-EYE EXAM 08/07/2021 08/07/2020, , 09/14/2018, Additional history exists DIABETES-FOOT EXAM 12/21/2021 12/21/2020, 0 10/19/2019, 01/05/2019, Additional history exists CKD HGB USE SMARTSET 37498 01/24/202201/24, 01/03/2021, 12/05/2020, Additional history exists Dexa [...] less than 100 Other and unspecified hyperlipidemia Type 2 diabetes mellitus with hemoglobin A1c goal of less than 7.0% (HCC) documented in this encounter Advance Directives Documents on File Type Date Recorded Patient Order Checker 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
--- OUTSIDE RECORDS SUMMARY | 2023-06-18 03:15 | External Medical Summary | Summary of Care ---
Author Name Unknown Organization [place] [address] Care Team Providers Care Occupational Physician Name Role Phone Marcela Pinto MD Primary Care Provider + Reason for Visit * Reason Onset Date Comments Advice 02/06/2021 Encounter Details Date Type Department Care Team Description 02/06/2021 Telephone General Internal Medicine [facility] 200 [facility] [place] [address] Marcela Pinto MD [address] [place] [address] [phone] Advice Allergies Active Allergy Reactions Severity Noted Date Comments Valsartan 07/10/2010 Enalapril 05/21/2006 Escitalopram Oxalate Nausea/vomiting 10/11/2009 Nauseated Iodinated Diagnostic Agents Nausea/vomiting 05/2010 IV Contrast Iodine Hives 12/18/2009 IV Contrast Lisinopril 05/21/2006 Metoprolol Tartrate 11/18/2006 Made pulse low [place] Oil-Black Currant-Vit E 07/10/2010 Verapamil 03/21/2004 Bupropion Hcl 10/30/2009 Makes pt sick in the stomach documented as of this encounter (statuses as of 02/14/2021) Medications Medication Sig Dispensed Refills Start Date [...] B, 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 ([facility]) INHALE 1 PUFF BY MOUTH EVERY [...] Oral Capsule Delayed Release (PriLOSEC)Indications :Ischemic colitis ([facility]) TAKE [...] DAILY, Patient reports increased by physician at [facility], Reported on 12/21/2020 Combivent Respimat 20-100 MCG/ACT [...] as of this encounter (statuses as of 02/14/2021) Active Problems Problem Noted Date Asthma in [...] as of this encounter (statuses as of 02/14/2021) Resolved Problems Problem Noted Date Resolved Date [...] Hypoxemia 10/08/2011 10/30/2015 Genetic Sleep Disorder Research Other*[id number] 07/25/2011 05/15/2016 Diverticulitis of colon 07/25/2011 01/06/20 [...] as of this encounter (statuses as of 02/14/2021) Immunizations Name Administration Dates Next Due COVID-19 [...] receive paperwork and provided them fax number [phone] to refax form [place] [facility] * Telephone Encounter - Kiana Roman OSA - 02/06/2021 5:59 PM EDT Emma from [employer] calling stating she sent over an order for the pt's diabetic supplies and is asking if the office has received this Please call Emma and kimberly documented in this encounter Plan of Treatment Upcoming Encounters Date Type Specialty Care Team Description 04/03/2021 Office Visit Internal Medicine Marcela Pinto MD [address] [place] [address], [place] [address] [phone] Health Maintenance Due Date Last Done Comments Zoster Vaccines (2 of 3) 08/31/2012 07/06/2012 CKD PHOS USE SMARTSET 28298 03/22/2020 03/22/2019 COVID-19 Vaccine (2 - Pfizer 2-dose series) 12/22/2020 2020 DIABETES-HGBA1C EVERY 6 MONTHS 06/04/2021 12/05/2020, 08/10/2020, 06/28/2020, Additional history exists CKD GFR USE SMARTSET 07079 07/26/202101/24, 01/03/2021, 12/05/2020, Additional history exists DIABETES-EYE EXAM 08/07/2021 08/07/2020, , 09/14/2018, Additional history exists DIABETES-FOOT EXAM 12/21/2021 12/21/2020, 0 10/19/2019, 01/05/2019, Additional history exists CKD HGB USE SMARTSET 03676 01/24/202201/24, 01/03/2021, 12/05/2020, Additional history exists Dexa [...] Documents on File Type Date Recorded Patient Pattern Grader 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 Advanced Directive
--- OUTSIDE RECORDS SUMMARY | 2023-06-18 03:15 | External Medical Summary | Summary of Care ---
Author Name Unknown Organization [place] [address] Care Team Providers Care Sports Physician Name Role Phone Marcela Pinto MD Primary Care Provider + Encounter Details Date Type Department Care Team Description 02/24/2021 Scan Encounter Unspecified Department <No scans attached> Allergies Active Allergy Reactions Severity Noted Date Comments Valsartan 07/10/2010 Enalapril 05/21/2006 Escitalopram Oxalate Nausea/vomiting 10/11/2009 Nauseated Iodinated Diagnostic Agents Nausea/vomiting 05/2010 IV Contrast Iodine Hives 12/18/2009 IV Contrast Lisinopril 05/21/2006 Metoprolol Tartrate 11/18/2006 Made pulse low [place] Oil-Black Currant-Vit E 07/10/2010 Verapamil 03/21/2004 Bupropion Hcl 10/30/2009 Makes pt sick in the stomach documented as of this encounter (statuses as of 02/26/2021) Medications Medication Sig Dispensed Refills Start Date [...] :COPD, group B, 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 ([facility]) INHALE 1 PUFF BY MOUTH EVERY [...] DAILY, Patient reports increased by physician at [facility], Reported on 12/21/2020 Combivent Respimat 20-100 MCG/ACT [...] EVERY DAY 90 Tab 1 02/12/2021 Active GemShare Contour Test In Vitro Strip (Glucose Blood)Indications:Ty [...] as of this encounter (statuses as of 02/26/2021) Active Problems Problem Noted Date Asthma in [...] as of this encounter (statuses as of 02/26/2021) Resolved Problems Problem Noted Date Resolved Date [...] Hypoxemia 10/08/2011 10/30/2015 Genetic Sleep Disorder Research Other*[id number] 07/25/2011 05/15/2016 Diverticulitis of colon 07/25/2011 01/06/20 [...] as of this encounter (statuses as of 02/26/2021) Immunizations Name Administration Dates Next Due COVID-19 [...] Medicine Marcela Pinto MD [address] [place] [address] [phone] Health Maintenance Due Date Last Done Comments Zoster Vaccines (2 of 3) 08/31/2012 07/06/2012 CKD PHOS USE SMARTSET 49516 03/22/2020 03/22/2019 COVID-19 Vaccine (2 - Pfizer 2-dose series) 12/22/2020 2020 DIABETES-HGBA1C EVERY 6 MONTHS 06/04/2021 12/05/2020, 08/10/2020, 06/28/2020, Additional history exists CKD GFR USE SMARTSET 08456 07/26/202101/24, 01/03/2021, 12/05/2020, Additional history exists DIABETES-EYE EXAM 08/07/2021 08/07/2020, , 09/14/2018, Additional history exists DIABETES-FOOT EXAM 12/21/2021 12/21/2020, 0 10/19/2019, 01/05/2019, Additional history exists CKD HGB USE SMARTSET 60358 01/24/202201/24, 01/03/2021, 12/05/2020, Additional history exists Dexa [...] Documents on File Type Date Recorded Patient Quantitative Analyst Marketing 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 Advanced Directive
--- OUTSIDE RECORDS SUMMARY | 2023-06-18 03:15 | External Medical Summary | Summary of Care ---
Author Name Unknown Organization [place] [address] Care Team Providers Care Corner Cutter Name Role Phone Marcela Pinto MD Primary Care Provider + Reason for Visit * Reason Onset Date Comments Advice 02/06/2021 Fax 02/06/2021 Encounter Details Date Type Department Care Team Description 02/06/2021 Telephone General Internal Medicine [facility] [address] [facility] [place] [address] Marcela Pinto MD 200 [place] [address] [phone] Advice; Fax Allergies Active Allergy Reactions Severity Noted Date Comments Valsartan 07/10/2010 Enalapril 05/21/2006 Escitalopram Oxalate Nausea/vomiting 10/11/2009 Nauseated Iodinated Diagnostic Agents Nausea/vomiting 05/2010 IV Contrast Iodine Hives 12/18/2009 IV Contrast Lisinopril 05/21/2006 Metoprolol Tartrate 11/18/2006 Made pulse low [place] Oil-Black Currant-Vit E 07/10/2010 Verapamil 03/21/2004 Bupropion [...] group B, 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 ([facility]) INHALE 1 PUFF BY MOUTH EVERY DAY [...] Oral Capsule Delayed Release (PriLOSEC)Indications :Ischemic colitis ([facility]) TAKE 1 CAPSULE BY MOUTH TWICE A [...] DAILY, Patient reports increased by physician at [facility], Reported on 12/21/2020 Combivent Respimat 20-100 [...] Hypoxemia 10/08/2011 10/30/2015 Genetic Sleep Disorder Research Other*[id number] 07/25/2011 05/15/2016 Diverticulitis of colon 07/25/2011 01/06/20 [...] receive paperwork and provided them fax number [phone] to refax form [place] [facility] * Telephone [...] Visit Internal Medicine Marcela Pinto MD [address] [facility] [place] [address] [phone] Health Maintenance Due Date Last Done Comments Zoster Vaccines (2 of 3) 08/31/2012 07/06/2012 CKD PHOS USE SMARTSET 42641 03/22/2020 03/22/2019 COVID-19 Vaccine (2 - Pfizer 2-dose series) 12/22/2020 2020 DIABETES-HGBA1C EVERY 6 MONTHS 06/04/2021 12/05/2020, 08/10/2020, 06/28/2020, Additional history exists CKD GFR USE SMARTSET 13224 07/26/202101/24, 01/03/2021, 12/05/2020, Additional history exists DIABETES-EYE EXAM 08/07/2021 08/07/2020, , 09/14/2018, Additional history exists DIABETES-FOOT EXAM 12/21/2021 12/21/2020, 0 10/19/2019, 01/05/2019, Additional history exists CKD HGB USE SMARTSET 32400 01/24/202201/24, 01/03/2021, 12/05/2020, Additional history exists Dexa [...] Documents on File Type Date Recorded Patient Formula Weigher 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 Advanced Directive
--- OUTSIDE RECORDS SUMMARY | 2023-06-18 03:15 | External Medical Summary | Summary of Care ---
Author Name Unknown Organization [place] [address] Care Team Providers Care Lithograph Press Feeder Name Role Phone Marcela Pinto MD Primary Care Provider + Encounter Details Date Type Department Care Team Description 02/08/2021 Scan Encounter Unspecified Department <No scans attached> Allergies Active Allergy Reactions Severity Noted Date Comments Valsartan 07/10/2010 Enalapril 05/21/2006 Escitalopram Oxalate Nausea/vomiting 10/11/2009 Nauseated Iodinated Diagnostic Agents Nausea/vomiting 05/2010 IV Contrast Iodine Hives 12/18/2009 IV Contrast Lisinopril 05/21/2006 Metoprolol Tartrate 11/18/2006 Made pulse low [place] Oil-Black Currant-Vit E 07/10/2010 Verapamil 03/21/2004 Bupropion [...] than 7.5% ([facility]) Take 2 mg by mouth daily before [...] 2017 classification ([facility]) INHALE 1 PUFF BY MOUTH EVERY DAY [...] DAILY, Patient reports increased by physician at [facility], Reported on 12/21/2020 Combivent Respimat 20-100 [...] Hypoxemia 10/08/2011 10/30/2015 Genetic Sleep Disorder Research Other*[id number] 07/25/2011 05/15/2016 Diverticulitis of colon 07/25/2011 01/06/20 [...] mRNA, LNP-s, No Pre serve, 2-Dose Series ([employer]) 2020 Hepatitis B, 20+ yrs 10/01/2017,04/21/2017,03/20 Pneumococcal [...] Internal Medicine Marcela Pinto MD [address] [place] [address] [phone] Health Maintenance Due Date Last Done Comments Zoster Vaccines (2 of 3) 08/31/2012 07/06/2012 CKD PHOS USE SMARTSET 29881 03/22/2020 03/22/2019 COVID-19 Vaccine (2 - Pfizer 2-dose series) 12/22/2020 2020 DIABETES-HGBA1C EVERY 6 MONTHS 06/04/2021 12/05/2020, 08/10/2020, 06/28/2020, Additional history exists CKD GFR USE SMARTSET 96284 07/26/202101/24, 01/03/2021, 12/05/2020, Additional history exists DIABETES-EYE EXAM 08/07/2021 08/07/2020, , 09/14/2018, Additional history exists DIABETES-FOOT EXAM 12/21/2021 12/21/2020, 0 10/19/2019, 01/05/2019, Additional history exists CKD HGB USE SMARTSET 35315 01/24/202201/24, 01/03/2021, 12/05/2020, Additional history exists Dexa [...] Documents on File Type Date Recorded Patient Pet Caregiver 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 Advanced Directive
--- OUTSIDE RECORDS SUMMARY | 2023-06-18 03:16 | External Medical Summary | Summary of Care ---
Author Name Unknown Organization [place] [address] Care Team Providers Care Pocketbook Maker Name Role Phone Marcela Pinto MD Primary Care Provider + Encounter Details Date Type Department Care Team Description 02/05/2021 Scan Encounter Unspecified Department <No scans attached> Allergies Active Allergy Reactions Severity Noted Date Comments Valsartan 07/10/2010 Enalapril 05/21/2006 Escitalopram Oxalate Nausea/vomiting 10/11/2009 Nauseated Iodinated Diagnostic Agents Nausea/vomiting 05/2010 IV Contrast Iodine Hives 12/18/2009 IV Contrast Lisinopril 05/21/2006 Metoprolol Tartrate 11/18/2006 Made pulse low [place] Oil-Black Currant-Vit E 07/10/2010 Verapamil 03/21/2004 Bupropion Hcl 10/30/2009 Makes pt sick in the stomach documented as of this encounter (statuses as of 02/06/2021) Medications Medication Sig Dispensed Refills Start Date [...] OF E11.9 300 Each 1 01/05/2020 Active Glucose Blood (YEIMY CONTOUR TEST) STRPIndications:Type 2 diabetes mellitus with hemoglobin A1c goal of less than 7.0% ([facility]) USE TO TEST BLOOD SUGAR 3 TIMES A DAY FOR DIAGNOSIS CODE OF E11.9 300 Strip 1 01/05/2020 Active Blood Glucose Monitoring Suppl [...] :COPD, group B, 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 ([facility]) INHALE 1 PUFF BY MOUTH EVERY DAY 90 Each 3 07/02/2020 Active Additional Information Patient not taking. Reported on 12/21/2020 methIMAzole 5 MG Oral Tablet (TAPAZOLE) Take 5 mg by mouth daily. 0 07/26/2020 Active Zafirlukast 20 MG Oral Tablet (ACCOLATE)Indication s:Asthma with severity to be determined TAKE 1 TABLET BY MOUTH EVERY DAY 90 Tab 3 08/15/2020 Active Atorvastatin Calcium 40 MG Oral Tablet (LIPITOR)Indications :Hyperlipidemia with target LDL less than 100 TAKE 1 TABLET BY MOUTH EVERY DAY 90 Tab 1 08/22/2020 Active Omeprazole 20 MG Oral Capsule Delayed Release (PriLOSEC)Indication s:Ischemic colitis ([facility]) TAKE 1 CAPSULE BY MOUTH [...] DAILY, Patient reports increased by physician at [facility], Reported on 12/21/2020 Combivent Respimat 20-100 [...] as of this encounter (statuses as of 02/06/2021) Active Problems Problem Noted Date Asthma in [...] as of this encounter (statuses as of 02/06/2021) Resolved Problems Problem Noted Date Resolved Date [...] Hypoxemia 10/08/2011 10/30/2015 Genetic Sleep Disorder Research Other*[id number] 07/25/2011 05/15/2016 Diverticulitis of colon 07/25/2011 01/06/20 [...] as of this encounter (statuses as of 02/06/2021) Immunizations Name Administration Dates Next Due COVID-19 [...] Visit Internal Medicine Marcela Pinto MD [address] [place] [address] [phone] Health Maintenance Due Date Last Done Comments Zoster Vaccines (2 of 3) 08/31/2012 07/06/2012 CKD PHOS USE SMARTSET 82230 03/22/2020 03/22/2019 COVID-19 Vaccine (2 - Pfizer 2-dose series) 12/22/2020 2020 DIABETES-HGBA1C EVERY 6 MONTHS 06/04/2021 12/05/2020, 08/10/2020, 06/28/2020, Additional history exists CKD GFR USE SMARTSET 60064 07/26/202101/24, 01/03/2021, 12/05/2020, Additional history exists DIABETES-EYE EXAM 08/07/2021 08/07/2020, , 09/14/2018, Additional history exists DIABETES-FOOT EXAM 12/21/2021 12/21/2020, 0 10/19/2019, 01/05/2019, Additional history exists CKD HGB USE SMARTSET 60059 01/24/202201/24, 01/03/2021, 12/05/2020, Additional history exists Dexa [...] Documents on File Type Date Recorded Patient Bacon Slicer 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
--- OUTSIDE RECORDS SUMMARY | 2023-06-18 03:16 | External Medical Summary | Summary of Care ---
Author Name Unknown Organization [place] [address] Care Team Providers Care Antique Repairer Name Role Phone Marcela Pinto MD Primary Care Provider + Encounter Details Date Type Department Care Team Description 01/25/2021 Orders Only General Internal Medicine [facility] [place] [address] [place] [address] Marcela Pinto MD [address] [place] [address] [phone] Allergies Active Allergy Reactions Severity Noted Date Comments Valsartan 07/10/2010 Enalapril 05/21/2006 Escitalopram Oxalate Nausea/vomiting 10/11/2009 Nauseated Iodinated Diagnostic Agents Nausea/vomiting 05/2010 IV Contrast Iodine Hives 12/18/2009 IV Contrast Lisinopril 05/21/2006 Metoprolol Tartrate 11/18/2006 Made pulse low [place] Oil-Black Currant-Vit E 07/10/2010 Verapamil 03/21/2004 Bupropion Hcl 10/30/2009 Makes pt sick in the stomach documented as of this encounter (statuses as of 01/25/2021) Medications Medication Sig Dispensed Refills Start Date [...] of less than 7.0% ([facility]) USE TO TEST BLOOD SUGAR 3 TIMES A DAY FOR DIAGNOSIS CODE OF E11.9 300 Strip 1 01/05/2020 Active Blood Glucose Monitoring Suppl (CONTOUR MONITOR) w/Device KIT USE TO TEST BLOOD SUGAR 3 TIMES A DAY FOR DIAGNOSIS CODE OF E11.9 1 Kit 0 01/05/2020 Active dicyclomine (BENTYL) 20 MG TabletIndications:Ch ronic constipation Take 1 Tab by mouth daily. 90 Tab 2 04/27/2020 Active dilTIAZem HCl ER Beads 240 MG [...] :COPD, group B, 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 ([facility]) INHALE 1 PUFF BY MOUTH [...] Oral Capsule Delayed Release (PriLOSEC)Indication s:Ischemic colitis ([facility]) TAKE 1 CAPSULE [...] 10 DAYS. 30 Tab 0 01/17/2021 Active documented as of this encounter (statuses as of 01/25/2021) Active Problems Problem Noted Date Asthma in [...] as of this encounter (statuses as of 01/25/2021) Resolved Problems Problem Noted Date Resolved Date [...] Hypoxemia 10/08/2011 10/30/2015 Genetic Sleep Disorder Research Other*[id number] 07/25/2011 05/15/2016 Diverticulitis of colon 07/25/2011 01/06/20 [...] as of this encounter (statuses as of 01/25/2021) Immunizations Name Administration Dates Next Due COVID-19 mRNA, LNP-s, No Pre serve, 2-Dose Series ([employer]) 2020 Hepatitis B, 20+ yrs 10/01/2017,04/21/2017,03/20 Pneumococcal [...] Internal Medicine Marcela Pinto MD [address] [place], [place] [address] [phone] Health Maintenance Due Date Last Done Comments Zoster Vaccines (2 of 3) 08/31/2012 07/06/2012 CKD PHOS USE SMARTSET 96340 03/22/2020 03/22/2019 COVID-19 Vaccine (2 - Pfizer 2-dose series) 12/22/2020 2020 DIABETES-HGBA1C EVERY 6 MONTHS 06/04/2021 12/05/2020, 08/10/2020, 06/28/2020, Additional history exists CKD GFR USE SMARTSET 42466 07/06/202101/24, 01/03/2021, 12/05/2020, Additional history exists DIABETES-EYE EXAM 08/07/2021 08/07/2020, , 09/14/2018, Additional history exists DIABETES-FOOT EXAM 12/21/2021 12/21/2020, 0 10/19/2019, 01/05/2019, Additional history exists CKD HGB USE SMARTSET 81940 01/03/202201/24, 01/03/2021, 12/05/2020, Additional history exists Dexa Scan [...] Priority Date/Time Associated Diagnosis Comments CHEMISTRY-OUTSIDE Routine 01/24/2021 documented in this encounter Results * CHEMISTRY-OUTSIDE (01/24/2021) CREATININE-OUTSIDE LAB 1.01 0.55 - 1.02 MG/DL OUTSIDE LAB (SEE SCANNED REPORT) EGFR-OUTSIDE LAB 56 OUTSIDE LAB (SEE SCANNED REPORT) POTASSIUM-OUTSIDE LAB 3.9 3.5 - 5.1 MMOL/L OUTSIDE LAB (SEE SCANNED REPORT) GLUCOSE-OUTSIDE LAB 106 70 - 110 MG/DL OUTSIDE LAB (SEE [...] LAB OUTSIDE LAB (SEE SCANNED REPORT) HEMOGLOBIN, C5J-SIFXASC LAB OUTSIDE LAB (SEE SCANNED REPORT) PHOSPHORUS-OUTSIDE LAB OUTSIDE LAB (SEE SCANNED REPORT) PTH-OUTSIDE LAB OUTSIDE LAB (SEE SCANNED REPORT) MICROALBUMIN RATIO-OUTSIDE LAB OUTSIDE LAB (SEE SCANNED REPORT) PROTEIN, UA-OUTSIDE LAB OUTSIDE LAB (SEE SCANNED REPORT) HEMOGLOBIN-OUTSIDE LAB 10.8(A) 12.0 - 16.0 GM/DL OUTSIDE LAB (SEE SCANNED REPORT) CHEMISTRY COMMENT-OUTSIDE LAB Comment:SEE SCAN: CBC, BMP, MAG, PROBNP OUTSIDE LAB (SEE SCANNED REPORT) Specimen Narrative Performed At OUTSIDE LAB (SEE SCANNED REPORT) documented in this encounter Advance Directives Documents on File Type Date Recorded Patient Creative Writing Professor 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
--- OUTSIDE RECORDS SUMMARY | 2023-06-18 03:16 | External Medical Summary | Summary of Care ---
Author Name Unknown Organization [place] [address] Care Team Providers Care Mathematics Technician Name Role Phone Marcela Pinto MD Primary Care Provider + Reason for Visit * Reason Onset Date Comments Medication Refill 01/30/2021 Encounter Details Date Type Department Care Team Description 01/30/2021 Telephone General Internal Medicine [facility] [address] [facility] [place] [place] [address] Marcela Pinto MD [address] [facility] [place] [facility] [place] [address] [phone] Medication Refill Allergies Active Allergy Reactions Severity Noted Date Comments Valsartan 07/10/2010 Enalapril 05/21/2006 Escitalopram Oxalate Nausea/vomiting 10/11/2009 Nauseated Iodinated Diagnostic Agents Nausea/vomiting 05/2010 IV Contrast Iodine Hives 12/18/2009 IV Contrast Lisinopril 05/21/2006 Metoprolol Tartrate 11/18/2006 Made pulse low [place] Oil-Black Currant-Vit E 07/10/2010 Verapamil 03/21/2004 Bupropion Hcl 10/30/2009 Makes pt sick in the stomach documented as of this encounter (statuses as of 01/30/2021) Medications Medication Sig Dispensed Refills Start Date [...] 300 Each 1 01/05/2020 Active Glucose Blood ([employer] CONTOUR TEST) STRPIndications:Type 2 diabetes mellitus with hemoglobin A1c goal of less than 7.0% ([facility]) USE TO TEST BLOOD SUGAR [...] :COPD, group B, 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 ([facility]) INHALE 1 PUFF BY MOUTH [...] Capsule Delayed Release (PriLOSEC)Indication s:Ischemic colitis ([facility]) TAKE 1 [...] DAILY, Patient reports increased by physician at [facility], Reported on 12/21/2020 Combivent Respimat [...] as of this encounter (statuses as of 01/30/2021) Active Problems Problem Noted Date Asthma in [...] as of this encounter (statuses as of 01/30/2021) Resolved Problems Problem Noted Date Resolved Date [...] Hypoxemia 10/08/2011 10/30/2015 Genetic Sleep Disorder Research Other*[id number] 07/25/2011 05/15/2016 Diverticulitis of colon 07/25/2011 01/06/20 [...] as of this encounter (statuses as of 01/30/2021) Immunizations Name Administration Dates Next Due COVID-19 mRNA, LNP-s, No Pre serve, 2-Dose Series ([employer]) 2020 Hepatitis B, 20+ yrs 10/01/2017,04/21/2017,03/20 Pneumococcal [...] Miscellaneous Notes * Telephone Encounter - Butch Ornelas PHARM Tech - 01/30/2021 2:25 PM EDT Company called asking Dr Zheng to call them back for clarification on supply order. Please call [phone]. Thank You, Butch Ornelas Material Handler 2Nd Shift [facility] 01/30/2021, 2:26 PM documented in this encounter Plan of Treatment Upcoming Encounters Date Type Specialty Care Team Description 04/10/2021 Office Visit Internal Medicine Marcela Pinto MD [address] [place] [address] Health Maintenance Due Date Last Done Comments Zoster Vaccines (2 of 3) 08/31/2012 07/06/2012 CKD PHOS USE SMARTSET 68495 03/22/2020 03/22/2019 COVID-19 Vaccine (2 - Pfizer 2-dose series) 12/22/2020 2020 DIABETES-HGBA1C EVERY 6 MONTHS 06/04/2021 12/05/2020, 08/10/2020, 06/28/2020, Additional history exists CKD GFR USE SMARTSET 17815 07/26/202101/24, 01/03/2021, 12/05/2020, Additional history exists DIABETES-EYE EXAM 08/07/2021 08/07/2020, , 09/14/2018, Additional history exists DIABETES-FOOT EXAM 12/21/2021 12/21/2020, 0 10/19/2019, 01/05/2019, Additional history exists CKD HGB USE SMARTSET 61177 01/24/202201/24, 01/03/2021, 12/05/2020, Additional history exists Dexa [...] Documents on File Type Date Recorded Patient Talent Development Consultant 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
--- OUTSIDE RECORDS SUMMARY | 2023-06-18 03:16 | External Medical Summary | Summary of Care ---
Author Name Unknown Organization [place] [address] Care Team Providers Care Business Technology Architect Name Role Phone Marcela Pinto MD Primary Care Provider + Reason for Visit * Reason Onset Date Comments Fax 01/22/2021 Encounter Details Date Type Department Care Team Description 01/22/2021 Telephone General Internal Medicine [facility] [address] [place] [address] Marcela Pinto MD [address] [place] [address] [phone] Fax Allergies Active Allergy Reactions Severity Noted Date Comments Valsartan 07/10/2010 Enalapril 05/21/2006 Escitalopram Oxalate Nausea/vomiting 10/11/2009 Nauseated Iodinated Diagnostic Agents Nausea/vomiting 05/2010 IV Contrast Iodine Hives 12/18/2009 IV Contrast Lisinopril 05/21/2006 Metoprolol Tartrate 11/18/2006 Made pulse low [place] Oil-Black Currant-Vit E 07/10/2010 Verapamil 03/21/2004 Bupropion Hcl 10/30/2009 Makes pt sick in the stomach documented as of this encounter (statuses as of 02/08/2021) Medications Medication Sig Dispensed Refills Start Date [...] OF E11.9 300 Each 1 0 Active Glucose Blood ([employer] CONTOUR TEST) STRPIndications:Typ e 2 diabetes mellitus with hemoglobin A1c goal of less than 7.0% ([facility]) USE TO TEST BLOOD SUGAR 3 TIMES A DAY FOR DIAGNOSIS CODE OF E11.9 300 Strip 1 0 Active Blood Glucose Monitoring Suppl [...] s:COPD, group B, 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 ([facility] [...] EVERY DAY 90 Tab 3 0 Active Atorvastatin Calcium 40 MG Oral Tablet (LIPITOR)Indication s:Hyperlipidemia with target LDL less than 100 TAKE 1 TABLET BY MOUTH EVERY DAY 90 Tab 1 0 Active Omeprazole 20 MG Oral Capsule [...] Patient reports increased by physician at [facility], Reported on 12/21/2020 Combivent Respimat [...] 10 DAYS. 30 Tab 0 1 Active dicyclomine (BENTYL) 20 MG TabletIndications:C hronic constipation Take 1 Tab by mouth daily. 90 Tab 2 0 01/26/20 21 Discontinued documented as of this encounter (statuses as of 02/08/2021) Active Problems Problem Noted Date Asthma in [...] as of this encounter (statuses as of 02/08/2021) Resolved Problems Problem Noted Date Resolved Date [...] Hypoxemia 10/08/2011 10/30/2015 Genetic Sleep Disorder Research Other*[id number] 07/25/2011 05/15/2016 Diverticulitis of colon 07/25/2011 01/06/20 [...] as of this encounter (statuses as of 02/08/2021) Immunizations Name Administration Dates Next Due COVID-19 mRNA, LNP-s, No Pre serve, 2-Dose Series ([employer]) 2020 Hepatitis B, 20+ yrs 10/01/2017,04/21/2017,03/20 Pneumococcal [...] encounter Miscellaneous Notes * Telephone Encounter - Crystal Villarreal OSA - 02/08/2021 6:02 PM EDT [facility] calling in to check on the status of previous message/form. Please return fax that needed the initials/date. They are also requesting last chart note to be sent along with the form as well. * Telephone Encounter - Renteta Gu LPN - 02/02/2021 12:48 PM EDT Form is in Dr Patino folder. Will await signature. Thank you * Telephone Encounter - Cari Singleton PHARM Tech - 02/01/2021 5:03 PM EDT Mar from [facility] calling to request order be refaxed as doctor's initials and date were not on order. Please advise and refax to [phone]. Thanks, Cari Singleton [facility] 02/01/2021,5:05 PM * Telephone Encounter - Renetta Gu LPN - 01/25/2021 3:59 PM EDT Form is in folder on Dr Pinto's desk, once she signs I will fax. Thank you * Telephone Encounter - Tamara Ortega trimming cutter machine - 01/25/2021 9:02 AM EDT Pt calling to check on status of testing supplies. Caller can be reached at [phone]. Thank you, Tamara Ortega CPhT Construction And Maintenance Inspector [email or web address] 01/25/2021, 9:02 AM * Telephone Encounter - Riccardo Renetta YoussefNICOL - 01/22/2021 4:43 PM EDT Awaiting paperwork to complete for patient. * Telephone Encounter - Lindsey Quintana CPhT - 01/22/2021 4:31 PM EDT Pt calling in states she was needing to let office know brand of strips she uses. Pt states she uses [employer] strips and Monitor. Thank You, Lindsey Quintana CPhT Construction And Maintenance Inspector [facility] 01/22/2021, 4:32 PM * Telephone Encounter - Riccardo Renetta YoussefNICOL - 01/22/2021 4:26 PM EDT Called number below to fax to [phone]. Thank you * Telephone Encounter - Crystal Miranda OSA - 01/22/2021 3:17 PM EDT Received a call asking if fax was received by office. Name/Company sending fax: [facility] What fax is pertaining to: Diabetic supplies script and last office notes request Date(s) they sent request: 01/18/21 Verified fax number they are sending to is correct (Y or N): [phone] Callback Number for the clinic to call to verified if fax was received: [phone] documented in this encounter Plan of Treatment Upcoming Encounters Date Type Specialty Care Team Description 04/10/2021 Office Visit Internal Medicine Marcela Pinto MD 200 [place] [address] Health Maintenance Due Date Last Done Comments Zoster Vaccines (2 of 3) 08/31/2012 07/06/2012 CKD PHOS USE SMARTSET 85175 03/22/2020 03/22/2019 COVID-19 Vaccine (2 - Pfizer 2-dose series) 12/22/2020 2020 DIABETES-HGBA1C EVERY 6 MONTHS 06/04/2021 12/05/2020, 08/10/2020, 06/28/2020, Additional history exists CKD GFR USE SMARTSET 88814 07/26/202101/24, 01/03/2021, 12/05/2020, Additional history exists DIABETES-EYE EXAM 08/07/2021 08/07/2020, , 09/14/2018, Additional history exists DIABETES-FOOT EXAM 12/21/2021 12/21/2020, 0 10/19/2019, 01/05/2019, Additional history exists CKD HGB USE SMARTSET 53149 01/24/202201/24, 01/03/2021, 12/05/2020, Additional history exists Dexa [...] on File Type Date Recorded Patient Clinical Nurse Leader 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
--- OUTSIDE RECORDS SUMMARY | 2023-06-18 03:16 | External Medical Summary | Summary of Care ---
Author Name Unknown Organization [facility] [address] Care Team Providers Care Cyber Security Administrator Name Role Phone Marcela Pinto MD Primary Care Provider + Reason for Visit * Reason Onset Date Comments Medication Refill 01/30/2021 Encounter Details Date Type Department Care Team Description 01/30/2021 Telephone General Internal Medicine [facility] [address] [place] [address] Marcela Pinto MD 200 [facility] [place] [address] [phone] Medication Refill Allergies Active Allergy Reactions Severity Noted Date Comments Valsartan 07/10/2010 Enalapril 05/21/2006 Escitalopram Oxalate Nausea/vomiting 10/11/2009 Nauseated Iodinated Diagnostic Agents Nausea/vomiting 05/2010 IV Contrast Iodine Hives 12/18/2009 IV Contrast Lisinopril 05/21/2006 Metoprolol Tartrate 11/18/2006 Made pulse low [place] Oil-Black Currant-Vit E 07/10/2010 Verapamil 03/21/2004 Bupropion Hcl 10/30/2009 Makes pt sick in the stomach documented as of this encounter (statuses as of 02/01/2021) Medications Medication Sig Dispensed Refills Start Date [...] 300 Each 1 01/05/2020 Active Glucose Blood ([employer] CONTOUR TEST) STRPIndications:Type 2 diabetes mellitus with hemoglobin A1c goal of less than 7.0% ([facility]) USE TO TEST BLOOD SUGAR [...] B, 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 ([facility]) INHALE 1 PUFF BY MOUTH [...] Delayed Release (PriLOSEC)Indication s:Ischemic colitis ([facility]) TAKE 1 CAPSULE BY MOUTH [...] DAILY, Patient reports increased by physician at [facility], Reported on 12/21/2020 Combivent Respimat 20-100 [...] as of this encounter (statuses as of 02/01/2021) Active Problems Problem Noted Date Asthma in [...] as of this encounter (statuses as of 02/01/2021) Resolved Problems Problem Noted Date Resolved Date [...] Hypoxemia 10/08/2011 10/30/2015 Genetic Sleep Disorder Research Other*[id number] 07/25/2011 05/15/2016 Diverticulitis of colon 07/25/2011 01/06/20 [...] as of this encounter (statuses as of 02/01/2021) Immunizations Name Administration Dates Next Due COVID-19 mRNA, LNP-s, No Pre serve, 2-Dose Series ([employer]) 2020 Hepatitis B, 20+ yrs 10/01/2017,04/21/2017,03/20 Pneumococcal [...] encounter Miscellaneous Notes * Telephone Encounter - RiccardoRenettaNICOL - 01/31/2021 1:11 PM EDT Is going to refax form. Thank you * Telephone Encounter - Butch Ornelas PHARM Tech - 01/30/2021 2:25 PM EDT Company called asking Dr Office to call them back for clarification on supply order. Please call [phone]. Thank You, Butch Ornelas Usability Specialist [facility] 01/30/2021, 2:26 PM documented in this encounter Plan of Treatment Upcoming Encounters Date Type Specialty Care Team Description 04/10/2021 Office Visit Internal Medicine Marcela Pinto MD [address] [facility], [place] [id number] Health Maintenance Due Date Last Done Comments Zoster Vaccines (2 of 3) 08/31/2012 07/06/2012 CKD PHOS USE SMARTSET 69417 03/22/2020 03/22/2019 COVID-19 Vaccine (2 - Pfizer 2-dose series) 12/22/2020 2020 DIABETES-HGBA1C EVERY 6 MONTHS 06/04/2021 12/05/2020, 08/10/2020, 06/28/2020, Additional history exists CKD GFR USE SMARTSET 95138 07/26/202101/24, 01/03/2021, 12/05/2020, Additional history exists DIABETES-EYE EXAM 08/07/2021 08/07/2020, , 09/14/2018, Additional history exists DIABETES-FOOT EXAM 12/21/2021 12/21/2020, 0 10/19/2019, 01/05/2019, Additional history exists CKD HGB USE SMARTSET 71049 01/24/202201/24, 01/03/2021, 12/05/2020, Additional history exists Dexa [...] on File Type Date Recorded Patient Body Fitter 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
--- OUTSIDE RECORDS SUMMARY | 2023-06-18 03:16 | External Medical Summary | Summary of Care ---
Author Name Unknown Organization [place] [address] Care Team Providers Care Linen Checker Name Role Phone Marcela Pinto MD Primary Care Provider + Reason for Visit * Reason Onset Date Comments Fax 01/22/2021 Encounter Details Date Type Department Care Team Description 01/22/2021 Telephone General Internal Medicine [facility] [address] [facility] [place] [address] Marcela Pinto MD [address] [place] [address] [phone] Fax Allergies Active Allergy Reactions Severity Noted Date Comments Valsartan 07/10/2010 Enalapril 05/21/2006 Escitalopram Oxalate Nausea/vomiting 10/11/2009 Nauseated Iodinated Diagnostic Agents Nausea/vomiting 05/2010 IV Contrast Iodine Hives 12/18/2009 IV Contrast Lisinopril 05/21/2006 Metoprolol Tartrate 11/18/2006 Made pulse low [place] Oil-Black Currant-Vit E 07/10/2010 Verapamil 03/21/2004 Bupropion Hcl 10/30/2009 Makes pt sick in the stomach documented as of this encounter (statuses as of 02/02/2021) Medications Medication Sig Dispensed Refills Start Date [...] 300 Each 1 0 Active Glucose Blood (iConclude CONTOUR TEST) STRPIndications:Typ e 2 diabetes mellitus [...] s:COPD, group B, 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 ([place] [...] Oral Capsule Delayed Release (PriLOSEC)Indicatio ns:Ischemic colitis ([facility]) TAKE 1 CAPSULE BY MOUTH [...] DAILY, Patient reports increased by physician at [facility], Reported on 12/21/2020 Combivent Respimat 20-100 [...] as of this encounter (statuses as of 02/02/2021) Active Problems Problem Noted Date Asthma in [...] as of this encounter (statuses as of 02/02/2021) Resolved Problems Problem Noted Date Resolved Date [...] Hypoxemia 10/08/2011 10/30/2015 Genetic Sleep Disorder Research Other*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 Will await signature. Thank you * Telephone Encounter - Cari Singleton PHARM Tech - 02/01/2021 5:03 PM EDT Mar from [employer] calling to request order be refaxed as doctor's initials and date were not on order. Please advise and refax to [phone]. Thanks, Cari Singleton Research Chemist Pharmacy Refill Call Center 02/01/2021,5:05 PM * Telephone Encounter - Riccardo Samantha, LPN - 01/25/2021 3:59 PM EDT Form is in folder on Dr Pinto's desk, once she signs I will fax. Thank you * Telephone Encounter - Tamara Ortega PHARM Tech - 01/25/2021 9:02 AM EDT Pt calling to check on status of testing supplies. Caller can be reached at [phone]. Thank you, Tamara Ortega, [facility] Director Payment [facility] 01/25/2021, 9:02 AM * Telephone Encounter - Riccardo Samantha, LPN - 01/22/2021 4:43 PM EDT Awaiting paperwork to complete for patient. * Telephone Encounter - Lindsey Quintana CPhT - 01/22/2021 4:31 PM EDT Pt calling in states she was needing to let office know brand of strips she uses. Pt states she uses CareSens strips and Monitor. Thank You, Lindsey Quintana CPhT Director Payment [facility] 01/22/2021, 4:32 PM * Telephone Encounter - Renetta Gu LPN - 01/22/2021 4:26 PM EDT Called number below to fax to [phone]. Thank you * Telephone Encounter - Crystal Miranda OSA - 01/22/2021 3:17 PM EDT Received a call asking if fax was received by office. Name/Company sending fax: [employer] What fax is pertaining to: Diabetic supplies script and last office notes request Date(s) they sent request: 01/18/21 Verified fax number they are sending to is correct (Y or N): [phone] Callback Number for the clinic to call to verified if fax was received: [phone] documented in this encounter Plan of Treatment Upcoming Encounters Date Type Specialty Care Team Description 04/10/2021 Office Visit Internal Medicine Marcela Pinto MD [address] [facility] [place] [address] [phone] Health Maintenance Due Date Last Done Comments Zoster Vaccines (2 of 3) 08/31/2012 07/06/2012 CKD PHOS USE SMARTSET 11620 03/22/2020 03/22/2019 COVID-19 Vaccine (2 - Pfizer 2-dose series) 12/22/2020 2020 DIABETES-HGBA1C EVERY 6 MONTHS 06/04/2021 12/05/2020, 08/10/2020, 06/28/2020, Additional history exists CKD GFR USE SMARTSET 22153 07/26/202101/24, 01/03/2021, 12/05/2020, Additional history exists DIABETES-EYE EXAM 08/07/2021 08/07/2020, , 09/14/2018, Additional history exists DIABETES-FOOT EXAM 12/21/2021 12/21/2020, 0 10/19/2019, 01/05/2019, Additional history exists CKD HGB USE SMARTSET 45868 01/24/202201/24, 01/03/2021, 12/05/2020, Additional history exists Dexa [...] on File Type Date Recorded 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
--- OUTSIDE RECORDS SUMMARY | 2023-06-18 03:16 | External Medical Summary | Summary of Care ---
Author Name Unknown Organization [place] [address] Care Team Providers Care Strip Machine Operator Name Role Phone Marcela Pinto MD Primary Care Provider + Reason for Visit * Reason Onset Date Comments Fax 01/22/2021 Encounter Details Date Type Department Care Team Description 01/22/2021 Telephone General Internal Medicine [facility] [address] [facility] [place] [address] Marcela Pinto MD [address] [place] [address] [phone] Fax Allergies Active Allergy Reactions Severity Noted Date Comments Valsartan 07/10/2010 Enalapril 05/21/2006 Escitalopram Oxalate Nausea/vomiting 10/11/2009 Nauseated Iodinated Diagnostic Agents Nausea/vomiting 05/2010 IV Contrast Iodine Hives 12/18/2009 IV Contrast Lisinopril 05/21/2006 Metoprolol Tartrate 11/18/2006 Made pulse low [place] Oil-Black Currant-Vit E 07/10/2010 Verapamil 03/21/2004 Bupropion [...] 300 Each 1 0 Active Glucose Blood (Weebly CONTOUR TEST) STRPIndications:Typ e 2 diabetes mellitus with hemoglobin A1c goal of less than 7.0% ([facility]) USE TO TEST BLOOD SUGAR 3 TIMES [...] s:COPD, group B, 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 ([facility]) INHALE 1 PUFF BY MOUTH EVERY DAY [...] Delayed Release (PriLOSEC)Indicatio ns:Ischemic colitis ([facility]) TAKE 1 CAPSULE BY MOUTH TWICE A [...] DAILY, Patient reports increased by physician at [facility], Reported on 12/21/2020 Combivent Respimat [...] Hypoxemia 10/08/2011 10/30/2015 Genetic Sleep Disorder Research Other*[id number] 07/25/2011 05/15/2016 Diverticulitis of colon 07/25/2011 01/06/20 [...] mRNA, LNP-s, No Pre serve, 2-Dose Series ([employer]) 2020 Hepatitis B, 20+ yrs 10/01/2017,04/21/2017,03/20 Pneumococcal [...] encounter Miscellaneous Notes * Telephone Encounter - Riccardo Samantha, LPN - 01/25/2021 3:59 PM EDT Form is in folder on Dr Pinto's desk, once she signs I will fax. Thank you * Telephone Encounter - Tamara Ortega PHARM Tech - 01/25/2021 9:02 AM EDT Pt calling to check on status of testing supplies. Caller can be reached at [phone]. Thank you, Tamara Ortega CPhT Editor Greeting Card [employer] 01/25/2021, 9:02 AM * Telephone Encounter - Renetta Gu LPN - 01/22/2021 4:43 PM EDT Awaiting paperwork to complete for patient. * Telephone Encounter - Lindsey Quintana CPhT - 01/22/2021 4:31 PM EDT Pt calling in states she was needing to let office know brand of strips she uses. Pt states she uses CareSens strips and Monitor. Thank You, Lindsey Quintana CPhT Editor Greeting Card [employer] 01/22/2021, 4:32 PM * Telephone Encounter - Renetta Gu LPN - 01/22/2021 4:26 PM EDT Called number below to fax to [phone]. Thank you * Telephone Encounter - Crystal Miranda OSA - 01/22/2021 3:17 PM EDT Received a call asking if fax was received by office. Name/Company sending fax: [employer] What fax is pertaining to: Diabetic supplies script and last office notes request Date(s) they sent request: 01/18/21 Verified fax number they are sending to is correct (Y or N): [phone] Callback Number for the clinic to call to verified if fax was received: [phone] documented in this encounter Plan of Treatment Upcoming Encounters Date Type Specialty Care Team Description 04/10/2021 Office Visit Internal Medicine Marcela Pinto MD [address] [place] [address] [phone] Health Maintenance Due Date Last Done Comments Zoster Vaccines (2 of 3) 08/31/2012 07/06/2012 CKD PHOS USE SMARTSET 94140 03/22/2020 03/22/2019 COVID-19 Vaccine (2 - Pfizer 2-dose series) 12/22/2020 2020 DIABETES-HGBA1C EVERY 6 MONTHS 06/04/2021 12/05/2020, 08/10/2020, 06/28/2020, Additional history exists CKD GFR USE SMARTSET 44169 07/26/202101/24, 01/03/2021, 12/05/2020, Additional history exists DIABETES-EYE EXAM 08/07/2021 08/07/2020, , 09/14/2018, Additional history exists DIABETES-FOOT EXAM 12/21/2021 12/21/2020, 0 10/19/2019, 01/05/2019, Additional history exists CKD HGB USE SMARTSET 94713 01/24/202201/24, 01/03/2021, 12/05/2020, Additional history exists Dexa [...] Documents on File Type Date Recorded 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
--- OUTSIDE RECORDS SUMMARY | 2023-06-18 03:16 | External Medical Summary | Summary of Care ---
Author Name Unknown Organization [place] [address] Care Team Providers Care Telehealth Director Name Role Phone Marcela Pinto MD Primary Care Provider + Reason for Visit * Reason Onset Date Comments Medication Refill 01/30/2021 Encounter Details Date Type Department Care Team Description 01/30/2021 Telephone General Internal Medicine [facility] [address] [facility] [place] [address] Marcela Pinto MD [address] [facility] [place] [address] [phone] Medication Refill Allergies Active Allergy Reactions Severity Noted Date Comments Valsartan 07/10/2010 Enalapril 05/21/2006 Escitalopram Oxalate Nausea/vomiting 10/11/2009 Nauseated Iodinated Diagnostic Agents Nausea/vomiting 05/2010 IV Contrast Iodine Hives 12/18/2009 IV Contrast Lisinopril 05/21/2006 Metoprolol Tartrate 11/18/2006 Made pulse low [place] Oil-Black Currant-Vit E 07/10/2010 Verapamil 03/21/2004 Bupropion Hcl 10/30/2009 Makes pt sick in the stomach documented as of this encounter (statuses as of 01/31/2021) Medications Medication Sig Dispensed Refills Start Date [...] 300 Each 1 01/05/2020 Active Glucose Blood (SweetLabs CONTOUR TEST) STRPIndications:Type 2 diabetes mellitus with hemoglobin A1c goal of less than 7.0% ([facility]) USE TO TEST BLOOD SUGAR 3 TIMES [...] 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 ([facility]) INHALE 1 PUFF BY MOUTH EVERY DAY [...] Delayed Release (PriLOSEC)Indication s:Ischemic colitis ([facility]) TAKE 1 CAPSULE [...] DAILY, Patient reports increased by physician at [facility], Reported on 12/21/2020 Combivent Respimat 20-100 [...] as of this encounter (statuses as of 01/31/2021) Active Problems Problem Noted Date Asthma in [...] as of this encounter (statuses as of 01/31/2021) Resolved Problems Problem Noted Date Resolved Date [...] Hypoxemia 10/08/2011 10/30/2015 Genetic Sleep Disorder Research Other*[id number] 07/25/2011 05/15/2016 Diverticulitis of colon 07/25/2011 01/06/20 [...] as of this encounter (statuses as of 01/31/2021) Immunizations Name Administration Dates Next Due COVID-19 mRNA, LNP-s, No Pre serve, 2-Dose Series ([employer]) 2020 Hepatitis B, 20+ yrs 10/01/2017,04/21/2017,03/20 Pneumococcal [...] for clarification on supply order. Please call [phone]. Thank You, Butch Ornelas Certified Ophthalmic Surgical Assistant [email or web address] 01/30/2021, 2:26 PM documented in this encounter Plan of Treatment Upcoming Encounters Date Type Specialty Care Team Description 04/10/2021 Office Visit Internal Medicine Marcela Pinto MD [address] [facility], [place] [id number] Health Maintenance Due Date Last Done Comments Zoster Vaccines (2 of 3) 08/31/2012 07/06/2012 CKD PHOS USE SMARTSET 49049 03/22/2020 03/22/2019 COVID-19 Vaccine (2 - Pfizer 2-dose series) 12/22/2020 2020 DIABETES-HGBA1C EVERY 6 MONTHS 06/04/2021 12/05/2020, 08/10/2020, 06/28/2020, Additional history exists CKD GFR USE SMARTSET 86741 07/26/202101/24, 01/03/2021, 12/05/2020, Additional history exists DIABETES-EYE EXAM 08/07/2021 08/07/2020, , 09/14/2018, Additional history exists DIABETES-FOOT EXAM 12/21/2021 12/21/2020, 0 10/19/2019, 01/05/2019, Additional history exists CKD HGB USE SMARTSET 22501 01/24/202201/24, 01/03/2021, 12/05/2020, Additional history exists Dexa [...] Documents on File Type Date Recorded Patient 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
--- OUTSIDE RECORDS SUMMARY | 2023-06-18 03:16 | External Medical Summary | Summary of Care ---
Author Name Unknown Organization [place] [address] Care Team Providers Care Conservation Enforcement Officer Name Role Phone Alex Pinto MD Primary Care Provider + Reason for Visit * Reason Comments eRx-Medication Refill Encounter Details Date Type Department Care Team Description 01/25/2021 Refill General Internal Medicine [facility] [address] [place] [address] Alex Pinto MD [address] [place] [address] [phone] Chronic constipation Allergies Active Allergy Reactions Severity Noted Date Comments Valsartan 07/10/2010 Enalapril 05/21/2006 Escitalopram Oxalate Nausea/vomiting 10/11/2009 Nauseated Iodinated Diagnostic Agents Nausea/vomiting 05/2010 IV Contrast Iodine Hives 12/18/2009 IV Contrast Lisinopril 05/21/2006 Metoprolol Tartrate 11/18/2006 Made pulse low [place] Oil-Black Currant-Vit E 07/10/2010 Verapamil 03/21/2004 Bupropion [...] 300 Each 1 0 Active Glucose Blood (Smartio CONTOUR TEST) STRPIndications:Typ e 2 diabetes mellitus [...] s:COPD, group B, 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 ([facility] [...] DAILY, Patient reports increased by physician at [facility], Reported on 12/21/2020 Combivent Respimat 20-100 [...] EVERY DAY 90 Tab 2 1 Active dicyclomine (BENTYL) 20 MG TabletIndications:C [...] Hypoxemia 10/08/2011 10/30/2015 Genetic Sleep Disorder Research Other*[id number] 07/25/2011 05/15/2016 Diverticulitis of colon 07/25/2011 01/06/20 [...] mRNA, LNP-s, No Pre serve, 2-Dose Series ([employer]) 2020 Hepatitis B, 20+ yrs 10/01/2017,04/21/2017,03/20 [...] Telephone Encounter - Alex Pinto MD - 01/25/2021 3:55 PM EDT Signed Prescriptions: Disp Refills Dicyclomine HCl 20 MG Oral Tablet (Bentyl) 90 Tab 2 Sig: TAKE 1 TABLET BY MOUTH EVERY DAY Authorizing Provider: ALEX PINTO * Telephone Encounter - Mary Freeman project controller - 01/25/2021 3:10 PM EDT Pending Prescriptions: Disp Refills Dicyclomine HCl 20 MG Oral Tablet (Bentyl*90 Tab 2 Sig: TAKE 1 TABLET BY MOUTH EVERY DAY * Telephone Encounter - Mary Freeman project controller - 01/25/2021 3:10 PM EDT Pending Prescriptions: Disp Refills Dicyclomine HCl 20 MG Oral Tablet (Bentyl*90 Tab 2 Sig: TAKE 1 TABLET BY MOUTH EVERY DAY Last Office/Telemedicine Visit: 12/21/2020 Next Office Visit: 04/10/2021 Scheduled Provider(s): Alex Pinto MD If no future appointments scheduled, and last appointment is greater than a year ago, please schedule patient for a follow-up appointment Last date the medication was ordered: 04/27/2020 Pharmacy: [id number] [address] [facility] Is this request for a controlled [...] Visit Internal Medicine Alex Pinto MD [address] [facility] [place] [address] Health Maintenance Due Date Last Done Comments Zoster Vaccines (2 of 3) 08/31/2012 07/06/2012 CKD PHOS USE SMARTSET 19422 03/22/2020 03/22/2019 COVID-19 Vaccine (2 - Pfizer 2-dose series) 12/22/2020 2020 DIABETES-HGBA1C EVERY 6 MONTHS 06/04/2021 12/05/2020, 08/10/2020, 06/28/2020, Additional history exists CKD GFR USE SMARTSET 20891 07/26/202101/24, 01/03/2021, 12/05/2020, Additional history exists DIABETES-EYE EXAM 08/07/2021 08/07/2020, , 09/14/2018, Additional history exists DIABETES-FOOT EXAM 12/21/2021 12/21/2020, 0 10/19/2019, 01/05/2019, Additional history exists CKD HGB USE SMARTSET 79140 01/24/202201/24, 01/03/2021, 12/05/2020, Additional history exists Dexa [...] on File Type Date Recorded 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
--- OUTSIDE RECORDS SUMMARY | 2023-06-18 03:16 | External Medical Summary | Summary of Care ---
Author Name Unknown Organization [place] [address] Care Team Providers Care Interpreter And Translator Name Role Phone Marcela Pinto MD Primary Care Provider + Reason for Visit * Reason Onset Date Comments Fax 01/22/2021 Encounter Details Date Type Department Care Team Description 01/22/2021 Telephone General Internal Medicine [facility] [address] [facility] [place] [address] Marcela Pinto MD [address] [place] [address] [phone] Fax Allergies Active Allergy Reactions Severity Noted Date Comments Valsartan 07/10/2010 Enalapril 05/21/2006 Escitalopram Oxalate Nausea/vomiting 10/11/2009 Nauseated Iodinated Diagnostic Agents Nausea/vomiting 05/2010 IV Contrast Iodine Hives 12/18/2009 IV Contrast Lisinopril 05/21/2006 Metoprolol Tartrate 11/18/2006 Made pulse low [place] Oil-Black Currant-Vit E 07/10/2010 Verapamil 03/21/2004 Bupropion [...] 300 Each 1 0 Active Glucose Blood (LocaMap CONTOUR TEST) STRPIndications:Typ e 2 diabetes mellitus with hemoglobin A1c goal of less than 7.0% ([facility]) USE TO TEST BLOOD SUGAR 3 [...] s:COPD, group B, 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 ([facility]) INHALE 1 PUFF BY MOUTH EVERY [...] Capsule Delayed Release (PriLOSEC)Indicatio ns:Ischemic colitis ([facility]) TAKE 1 CAPSULE BY MOUTH TWICE [...] DAILY, Patient reports increased by physician at [facility], Reported on 12/21/2020 Combivent Respimat 20-100 MCG/ACT [...] Hypoxemia 10/08/2011 10/30/2015 Genetic Sleep Disorder Research Other*[id number] 07/25/2011 05/15/2016 Diverticulitis of colon 07/25/2011 01/06/20 [...] No Pre serve, 2-Dose Series ([employer]) 2020 Hepatitis B, 20+ yrs 10/01/2017,04/21/2017,03/20 Pneumococcal [...] Miscellaneous Notes * Telephone Encounter - Cari Singleton PHARM Tech - 02/01/2021 5:03 PM EDT Mar from [employer] calling to request order be refaxed as doctor's initials and date were not on order. Please advise and refax to [phone]. Thanks, Cari Singleton Sheet Metal Duct Worker Supervisor Pharmacy Refill Call Center 02/01/2021,5:05 PM * Telephone Encounter - Renetta Gu LPN - 01/25/2021 3:59 PM EDT Form is in folder on Dr Pinto's desk, once she signs I will fax. Thank you * Telephone Encounter - Tamara Ortega PHARM Tech - 01/25/2021 9:02 AM EDT Pt calling to check on status of testing supplies. Caller can be reached at [phone]. Thank you, Tamara Ortega CPhT Supervisor Press Room [facility] 01/25/2021, 9:02 AM * Telephone Encounter - Renetta Gu LPN - 01/22/2021 4:43 PM EDT Awaiting paperwork to complete for patient. * Telephone Encounter - Lindsey Quintana CPhT - 01/22/2021 4:31 PM EDT Pt calling in states she was needing to let office know brand of strips she uses. Pt states she uses CareSens strips and Monitor. Thank You, Lindsey Quintana CPhT Supervisor Press Room [employer] 01/22/2021, 4:32 PM * Telephone Encounter - Renetta Gu LPN - 01/22/2021 4:26 PM EDT Called number below to fax to [phone]. Thank you * Telephone Encounter - Crystal Miranda OSA - 01/22/2021 3:17 PM EDT Received a call asking if fax was received by office. Name/Company sending fax: [employer] What fax is pertaining to: Diabetic supplies script and last office notes request Date(s) they sent request: 01/18/21 Verified fax number they are sending to is correct (Y or N): [phone] Callback Number for the clinic to call to verified if fax was received: [phone] documented in this encounter Plan of Treatment Upcoming Encounters Date Type Specialty Care Team Description 04/10/2021 Office Visit Internal Medicine Marcela Pinto MD [address] [place] [address] [phone] Health Maintenance Due Date Last Done Comments Zoster Vaccines (2 of 3) 08/31/2012 07/06/2012 CKD PHOS USE SMARTSET 92154 03/22/2020 03/22/2019 COVID-19 Vaccine (2 - Pfizer 2-dose series) 12/22/2020 2020 DIABETES-HGBA1C EVERY 6 MONTHS 06/04/2021 12/05/2020, 08/10/2020, 06/28/2020, Additional history exists CKD GFR USE SMARTSET 86092 07/26/202101/24, 01/03/2021, 12/05/2020, Additional history exists DIABETES-EYE EXAM 08/07/2021 08/07/2020, , 09/14/2018, Additional history exists DIABETES-FOOT EXAM 12/21/2021 12/21/2020, 0 10/19/2019, 01/05/2019, Additional history exists CKD HGB USE SMARTSET 12477 01/24/202201/24, 01/03/2021, 12/05/2020, Additional history exists Dexa [...] Documents on File Type Date Recorded Patient Promotions Executive Producer 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
--- OUTSIDE RECORDS SUMMARY | 2023-06-18 03:16 | External Medical Summary | Summary of Care ---
Author Name Unknown Organization [place] [address] Care Team Providers Care Sports Analyst Name Role Phone Marcela Pinto MD Primary Care Provider + Reason for Visit * Reason Onset Date Comments FYI 02/06/2021 Encounter Details Date Type Department Care Team Description 02/06/2021 Telephone General Internal Medicine [facility] [address] [facility] [place] [address] Marcela Pinto MD [address] [place] [address] [phone] FYI Allergies Active Allergy Reactions Severity Noted Date Comments Valsartan 07/10/2010 Enalapril 05/21/2006 Escitalopram Oxalate Nausea/vomiting 10/11/2009 Nauseated Iodinated Diagnostic Agents Nausea/vomiting 05/2010 IV Contrast Iodine Hives 12/18/2009 IV Contrast Lisinopril 05/21/2006 Metoprolol Tartrate 11/18/2006 Made pulse low [place] Oil-Black Currant-Vit E 07/10/2010 Verapamil 03/21/2004 Bupropion Hcl 10/30/2009 Makes pt sick in the stomach documented as of this encounter (statuses as of 02/07/2021) Medications Medication Sig Dispensed Refills Start Date [...] 300 Each 1 01/05/2020 Active Glucose Blood ([employer] CONTOUR TEST) STRPIndications:Type 2 diabetes mellitus with hemoglobin A1c goal of less than 7.0% ([facility]) USE TO TEST BLOOD SUGAR 3 [...] :COPD, group B, 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 ([facility]) INHALE 1 PUFF BY MOUTH [...] Oral Capsule Delayed Release (PriLOSEC)Indication s:Ischemic colitis ([facility]) TAKE 1 CAPSULE BY MOUTH [...] DAILY, Patient reports increased by physician at [facility], Reported on 12/21/2020 Combivent Respimat 20-100 [...] as of this encounter (statuses as of 02/07/2021) Active Problems Problem Noted Date Asthma in [...] as of this encounter (statuses as of 02/07/2021) Resolved Problems Problem Noted Date Resolved Date [...] Hypoxemia 10/08/2011 10/30/2015 Genetic Sleep Disorder Research Other*[id number] 07/25/2011 05/15/2016 Diverticulitis of colon 07/25/2011 01/06/20 [...] as of this encounter (statuses as of 02/07/2021) Immunizations Name Administration Dates Next Due COVID-19 mRNA, LNP-s, No Pre serve, 2-Dose Series ([employer] 2020 Hepatitis B, 20+ yrs 10/01/2017,04/21/2017,03/20 Pneumococcal [...] Telephone Encounter - Marcela Pinto MD - 02/07/2021 8:35 AM EDT Noted. * Telephone Encounter - Samson Frederick OSA - 02/06/2021 9:44 AM EDT Hilary from [facility] Nurses calling to report that the Pt noticed a little bit of blood when she had bowel movements last night. With her history of diverticulitis she began taking the medication that she was prescribed if that should happen. Since then she has not experienced any more bleeding. documented in this encounter Plan of Treatment Upcoming Encounters Date Type Specialty Care Team Description 04/10/2021 Office Visit Internal Medicine Marcela Pinto MD [address] [place] [address] [id number] Health Maintenance Due Date Last Done Comments Zoster Vaccines (2 of 3) 08/31/2012 07/06/2012 CKD PHOS USE SMARTSET 11911 03/22/2020 03/22/2019 COVID-19 Vaccine (2 - Pfizer 2-dose series) 12/22/2020 2020 DIABETES-HGBA1C EVERY 6 MONTHS 06/04/2021 12/05/2020, 08/10/2020, 06/28/2020, Additional history exists CKD GFR USE SMARTSET 73290 07/26/202101/24, 01/03/2021, 12/05/2020, Additional history exists DIABETES-EYE EXAM 08/07/2021 08/07/2020, , 09/14/2018, Additional history exists DIABETES-FOOT EXAM 12/21/2021 12/21/2020, 0 10/19/2019, 01/05/2019, Additional history exists CKD HGB USE SMARTSET 68699 01/24/202201/24, 01/03/2021, 12/05/2020, Additional history exists Dexa [...] Documents on File 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
--- OUTSIDE RECORDS SUMMARY | 2023-06-18 03:17 | External Medical Summary | Summary of Care ---
Author Name Unknown Organization [place] [address] Care Team Providers Care Crime Scene Technician Name Role Phone Marcela Pinto MD Primary Care Provider + Encounter Details Date Type Department Care Team Description 01/05/2021 Orders Only General Internal Medicine [facility] [place] [address] [place] [address] Marcela Pinto MD [address] [place] [address] [phone] Allergies Active Allergy Reactions Severity Noted Date Comments Valsartan 07/10/2010 Enalapril 05/21/2006 Escitalopram Oxalate Nausea/vomiting 10/11/2009 Nauseated Iodinated Diagnostic Agents Nausea/vomiting 05/2010 IV Contrast Iodine Hives 12/18/2009 IV Contrast Lisinopril 05/21/2006 Metoprolol Tartrate 11/18/2006 Made pulse low [place] Oil-Black Currant-Vit E 07/10/2010 Verapamil 03/21/2004 Bupropion Hcl 10/30/2009 Makes pt sick in the stomach documented as of this encounter (statuses as of 01/05/2021) Medications Medication Sig Dispensed Refills Start Date [...] less than 7.0% ([facility]) USE TO TEST BLOOD SUGAR 3 TIMES [...] :COPD, group B, 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 ([facility]) INHALE 1 PUFF BY MOUTH EVERY [...] Oral Capsule Delayed Release (PriLOSEC)Indication s:Ischemic colitis ([facility]) TAKE 1 CAPSULE BY MOUTH TWICE [...] physician at [facility], Reported on 12/21/2020 metroNIDAZOLE 500 MG Oral Tablet (Flagyl) TAKE 1 TAB BY MOUTH 3 TIMES A DAY FOR 10 DAYS. 30 Tab 0 11/23/2020 Active Ciprofloxacin HCl 500 MG Oral Tablet (Cipro) TAKE 1 TABLET BY MOUTH EVERY 12 HOURS FOR 10 DAYS 20 Tab 0 11/23/2020 Active HYDROcodone-Acetamin ophen 5-325 MG Oral TabletIndications:Ge neralized osteoarthritis Take 1 Tab by mouth every 6 hours as needed for Pain, Mild. 120 Tab 0 2020 Active Combivent Respimat 20-100 MCG/ACT Inhalation Aerosol [...] mg by mouth daily. 0 12/13/2020 Active documented as of this encounter (statuses as of 01/05/2021) Active Problems Problem Noted Date Diabetes mellitus with stage 3 chronic k [...] as of this encounter (statuses as of 01/05/2021) Resolved Problems Problem Noted Date Resolved Date [...] Hypoxemia 10/08/2011 10/30/2015 Genetic Sleep Disorder Research Other*[id number] 07/25/2011 05/15/2016 Diverticulitis of colon 07/25/2011 01/06/20 [...] as of this encounter (statuses as of 01/05/2021) Immunizations Name Administration Dates Next Due COVID-19 mRNA, LNP-s, No Pre serve, 2-Dose Series ([email or web address]) 2020 Hepatitis B, 20+ yrs 10/01/2017,04/21/2017,03/20 Pneumococcal [...] Visit Internal Medicine Marcela Pinto MD [address] [place], [place] [id number] Health Maintenance Due Date Last Done Comments Zoster Vaccines (2 of 3) 08/31/2012 07/06/2012 CKD PHOS USE SMARTSET 94090 03/22/2020 03/22/2019 COVID-19 Vaccine (2 - Pfizer 2-dose series) 12/22/2020 2020 CKD GFR USE SMARTSET 57377 06/04/202101/03, 12/05/2020, 07/19/2020, Additional history exists DIABETES-HGBA1C EVERY 6 MONTHS 06/04/2021 12/05/2020, 08/10/2020, 06/28/2020, Additional history exists DIABETES-EYE EXAM 08/07/2021 08/07/2020, , 09/14/2018, Additional history exists CKD HGB USE SMARTSET 85005 12/05/202101/03, 12/05/2020, 07/19/2020, Additional history exists DIABETES-FOOT EXAM 12/21/2021 12/21/2020, 0 10/19/2019, 01/05/2019, Additional history exists Dexa Scan 08/08/2025 08/08/2020, [...] Priority Date/Time Associated Diagnosis Comments CHEMISTRY-OUTSIDE Routine 01/03/2021 documented in this encounter Results * CHEMISTRY-OUTSIDE (01/03/2021) CREATININE-OUTSIDE LAB 1.05(A) 0.55 - 1.02 MG/DL OUTSIDE LAB (SEE SCANNED REPORT) EGFR-OUTSIDE LAB 53(A) >60 ML/MIN OUTSIDE LAB (SEE SCANNED REPORT) POTASSIUM-OUTSIDE LAB 3.9 3.5 - 5.1 MMOL/L OUTSIDE LAB (SEE SCANNED REPORT) GLUCOSE-OUTSIDE LAB 132(A) 70 - 110 MG/DL OUTSIDE LAB (SEE [...] LAB OUTSIDE LAB (SEE SCANNED REPORT) HEMOGLOBIN, H1G-XYGDLGV LAB OUTSIDE LAB (SEE SCANNED REPORT) PHOSPHORUS-OUTSIDE LAB OUTSIDE LAB (SEE SCANNED REPORT) PTH-OUTSIDE LAB OUTSIDE LAB (SEE SCANNED REPORT) MICROALBUMIN RATIO-OUTSIDE LAB OUTSIDE LAB (SEE SCANNED REPORT) PROTEIN, UA-OUTSIDE LAB OUTSIDE LAB (SEE SCANNED REPORT) HEMOGLOBIN-OUTSIDE LAB 10.6(A) 12.0 - 16.0 G/DL OUTSIDE LAB (SEE SCANNED REPORT) CHEMISTRY COMMENT-OUTSIDE LAB Comment:CBC, BMP, MAGNESIUM, PROBNP OUTSIDE LAB (SEE SCANNED REPORT) Specimen Narrative Performed At OUTSIDE LAB (SEE SCANNED REPORT) documented in this encounter Advance Directives Documents on File Type Date Recorded Patient Workforce Analyst 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
--- OUTSIDE RECORDS SUMMARY | 2023-06-18 03:17 | External Medical Summary | Summary of Care ---
Author Name Unknown Organization [facility] Address [facility] [place] [address] Care Team Providers Care Cold Patcher Name Role Phone Marcela Pinto MD Primary Care Provider + Reason for Visit * Reason Onset Date Comments Medical Records Request 12/21/2020 [facility] Encounter Details Date Type Department Care Team Description 12/21/2020 Telephone General Internal Medicine [facility] [place] [address] [facility] [place] [address] [facility] [address] [facility] [address] [phone] Medical Records Request ([facility] Allergies Active Allergy Reactions Severity Noted Date Comments Valsartan 07/10/2010 Enalapril 05/21/2006 Escitalopram Oxalate Nausea/vomiting 10/11/2009 Nauseated Iodinated Diagnostic Agents Nausea/vomiting 05/2010 IV Contrast Iodine Hives 12/18/2009 IV Contrast Lisinopril 05/21/2006 Metoprolol Tartrate 11/18/2006 Made pulse low [place] Oil-Black Currant-Vit E 07/10/2010 Verapamil 03/21/2004 Bupropion Hcl 10/30/2009 Makes pt sick in the stomach documented as of this encounter (statuses as of 12/21/2020) Medications Medication Sig Dispensed Refills Start Date [...] 300 Each 1 01/05/2020 Active Glucose Blood ([employer] CONTOUR TEST) STRPIndications:Type 2 diabetes mellitus with hemoglobin A1c goal of less than 7.0% ([facility]) USE TO TEST BLOOD SUGAR 3 TIMES [...] :COPD, group B, 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 ([facility]) INHALE 1 PUFF BY MOUTH EVERY DAY [...] DAILY, Patient reports increased by physician at [facility], Reported on 12/21/2020 metroNIDAZOLE 500 MG Oral [...] as of this encounter (statuses as of 12/21/2020) Active Problems Problem Noted Date Diabetes mellitus [...] as of this encounter (statuses as of 12/21/2020) Resolved Problems Problem Noted Date Resolved Date [...] Hypoxemia 10/08/2011 10/30/2015 Genetic Sleep Disorder Research Other*[id number] 07/25/2011 05/15/2016 Diverticulitis of colon 07/25/2011 01/06/20 [...] as of this encounter (statuses as of 12/21/2020) Immunizations Name Administration Dates Next Due COVID-19 mRNA, LNP-s, No Pre serve, 2-Dose Series ([employer]) 2020 Hepatitis B, 20+ yrs 10/01/2017,04/21/2017,03/20 Pneumococcal [...] Telephone Encounter - Hiwot Valladares LPN - 12/21/2020 4:06 PM EST Left voicemail at [facility] to send records from recent discharge on patient. Provided necessary medical information and fax number [phone]. The records sent do not contain a sufficient discharge medication list. We need to reconcile medications. documented in this encounter Plan of Treatment Health Maintenance Due Date Last Done Comments Zoster Vaccines (2 of 3) 08/31/2012 07/06/2012 CKD PHOS USE SMARTSET 13200 03/22/2020 03/22/2019 COVID-19 Vaccine (2 of 2 - Pfizer series) 12/22/2020 2020 CKD GFR USE SMARTSET 77175 06/04/202112/05, 07/19/2020, 06/28/2020, Additional history exists DIABETES-HGBA1C EVERY 6 MONTHS 06/04/2021 12/05/2020, 08/10/2020, 06/28/2020, Additional history exists DIABETES-EYE EXAM 08/07/2021 08/07/2020, , 09/14/2018, Additional history exists CKD HGB USE SMARTSET 20562 12/05/202112/05, 07/19/2020, 06/28/2020, Additional history exists DIABETES-FOOT EXAM 12/21/2021 12/21/2020, [...] Documents on File Type Date Recorded 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
--- OUTSIDE RECORDS SUMMARY | 2023-06-18 03:17 | External Medical Summary | Summary of Care ---
Author Name Unknown Organization [place] [address] Care Team Providers Care Securities Trader Name Role Phone Marcela Pinto MD Primary Care Provider + Reason for Visit * Reason Onset Date Comments Fax 01/22/2021 Encounter Details Date Type Department Care Team Description 01/22/2021 Telephone General Internal Medicine [facility] [address] [facility] [place] [address] Marcela Pinto MD [address] [place] [address] [phone] Fax Allergies Active Allergy Reactions Severity Noted Date Comments Valsartan 07/10/2010 Enalapril 05/21/2006 Escitalopram Oxalate Nausea/vomiting 10/11/2009 Nauseated Iodinated Diagnostic Agents Nausea/vomiting 05/2010 IV Contrast Iodine Hives 12/18/2009 IV Contrast Lisinopril 05/21/2006 Metoprolol Tartrate 11/18/2006 Made pulse low [place] Oil-Black Currant-Vit E 07/10/2010 Verapamil 03/21/2004 Bupropion Hcl 10/30/2009 Makes pt sick in the stomach documented as of this encounter (statuses as of 01/22/2021) Medications Medication Sig Dispensed Refills Start Date [...] Patient reports increased by physician at [facility], Reported on 12/21/2020 Combivent Respimat 20-100 [...] as of this encounter (statuses as of 01/22/2021) Active Problems Problem Noted Date Asthma in [...] as of this encounter (statuses as of 01/22/2021) Resolved Problems Problem Noted Date Resolved Date [...] Hypoxemia 10/08/2011 10/30/2015 Genetic Sleep Disorder Research Other*[id number] 07/25/2011 05/15/2016 Diverticulitis of colon 07/25/2011 01/06/20 [...] as of this encounter (statuses as of 01/22/2021) Immunizations Name Administration Dates Next Due COVID-19 mRNA, LNP-s, No Pre serve, 2-Dose Series ([employer]) 2020 Hepatitis B, 20+ yrs 10/01/2017,04/21/2017,03/20 Pneumococcal [...] encounter Miscellaneous Notes * Telephone Encounter - Lindsey Quintana CPhT - 01/22/2021 4:31 PM EDT Pt calling in states she was needing to let office know brand of strips she uses. Pt states she uses CareSens strips and Monitor. Thank You, Lindsey Quintana CPhT Rn Clinical [facility] 01/22/2021, 4:32 PM * Telephone Encounter - Renetta Gu LPN - 01/22/2021 4:26 PM EDT Called number below to fax to [phone]. Thank you * Telephone Encounter - Crystal Miranda OSA - 01/22/2021 3:17 PM EDT Received a call asking if fax was received by office. Name/Company sending fax: [employer] What fax is pertaining to: Diabetic supplies script and last office notes request Date(s) they sent request: 01/18/21 Verified fax number they are sending to is correct (Y or N): [phone] Callback Number for the clinic to call to verified if fax was received: [phone] documented in this encounter Plan of Treatment Upcoming Encounters Date Type Specialty Care Team Description 04/10/2021 Office Visit Internal Medicine Marcela Pinto MD [address] [facility] [place] [address] [phone] Health Maintenance Due Date Last Done Comments Zoster Vaccines (2 of 3) 08/31/2012 07/06/2012 CKD PHOS USE SMARTSET 50609 03/22/2020 03/22/2019 COVID-19 Vaccine (2 - Pfizer 2-dose series) 12/22/2020 2020 DIABETES-HGBA1C EVERY 6 MONTHS 06/04/2021 12/05/2020, 08/10/2020, 06/28/2020, Additional history exists CKD GFR USE SMARTSET 54650 07/06/202101/03, 12/05/2020, 07/19/2020, Additional history exists DIABETES-EYE EXAM 08/07/2021 08/07/2020, , 09/14/2018, Additional history exists DIABETES-FOOT EXAM 12/21/2021 12/21/2020, 0 10/19/2019, 01/05/2019, Additional history exists CKD HGB USE SMARTSET 08041 01/03/202201/03, 12/05/2020, 07/19/2020, Additional history exists Dexa Scan 08/08/2025 08/08/2020, [...] Documents on File Type Date 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
--- OUTSIDE RECORDS SUMMARY | 2023-06-18 03:17 | External Medical Summary | Summary of Care ---
Author Name Unknown Organization [place] [address] Care Team Providers Care Resizer Operator Name Role Phone Marcela Pinto MD Primary Care Provider + Reason for Visit * Reason Onset Date Comments Fax 01/22/2021 Encounter Details Date Type Department Care Team Description 01/22/2021 Telephone General Internal Medicine [facility] 200 [place] [address] Marcela Pinto MD [address] [place] [address] [phone] Fax Allergies Active Allergy Reactions Severity Noted Date Comments Valsartan 07/10/2010 Enalapril 05/21/2006 Escitalopram Oxalate Nausea/vomiting 10/11/2009 Nauseated Iodinated Diagnostic Agents Nausea/vomiting 05/2010 IV Contrast Iodine Hives 12/18/2009 IV Contrast Lisinopril 05/21/2006 Metoprolol Tartrate 11/18/2006 Made pulse low [place] Oil-Black Currant-Vit E 07/10/2010 Verapamil 03/21/2004 Bupropion [...] DAILY, Patient reports increased by physician at [facility], Reported on 12/21/2020 Combivent Respimat 20-100 [...] Hypoxemia 10/08/2011 10/30/2015 Genetic Sleep Disorder Research Other*[id number] 07/25/2011 05/15/2016 Diverticulitis of colon 07/25/2011 01/06/20 [...] mRNA, LNP-s, No Pre serve, 2-Dose Series ([employer]) 2020 Hepatitis B, 20+ yrs 10/01/2017,04/21/2017,03/20 Pneumococcal [...] Miscellaneous Notes * Telephone Encounter - Tamara Ortega PHARM Tech - 01/25/2021 9:02 AM EDT Pt calling to check on status of testing supplies. Caller can be reached at [phone]. Thank you, Tamara Ortega CPhT Production Clerk [facility] 01/25/2021, 9:02 AM * Telephone Encounter - Renetta Gu LPN - 01/22/2021 4:43 PM EDT Awaiting paperwork to complete for patient. * Telephone Encounter - Lindsey Quintana CPhT - 01/22/2021 4:31 PM EDT Pt calling in states she was needing to let office know brand of strips she uses. Pt states she uses [employer]ens strips and Monitor. Thank You, Lindsey Quintana CPhT Production Clerk [email or web address] 01/22/2021, 4:32 PM * Telephone Encounter - Renetta Gu LPN - 01/22/2021 4:26 PM EDT Called number below to fax to [phone]. Thank you * Telephone Encounter - Crystal Miranda OSA - 01/22/2021 3:17 PM EDT Received a call asking if fax was received by office. Name/Company sending fax: [employer] What fax is pertaining to: Diabetic supplies script and last office notes request Date(s) they sent request: 01/18/21 Verified fax number they are sending to is correct (Y or N): [phone] Callback Number for the clinic to call to verified if fax was received: [phone] documented in this encounter Plan of Treatment Upcoming Encounters Date Type Specialty Care Team Description 04/10/2021 Office Visit Internal Medicine Marcela Pinto MD [address] [facility] [place] [address] [phone] Health Maintenance Due Date Last Done Comments Zoster Vaccines (2 of 3) 08/31/2012 07/06/2012 CKD PHOS USE SMARTSET 02690 03/22/2020 03/22/2019 COVID-19 Vaccine (2 - Pfizer 2-dose series) 12/22/2020 2020 DIABETES-HGBA1C EVERY 6 MONTHS 06/04/2021 12/05/2020, 08/10/2020, 06/28/2020, Additional history exists CKD GFR USE SMARTSET 65104 07/06/202101/03, 12/05/2020, 07/19/2020, Additional history exists DIABETES-EYE EXAM 08/07/2021 08/07/2020, , 09/14/2018, Additional history exists DIABETES-FOOT EXAM 12/21/2021 12/21/2020, 0 10/19/2019, 01/05/2019, Additional history exists CKD HGB USE SMARTSET 54586 01/03/202201/03, 12/05/2020, 07/19/2020, Additional history exists Dexa [...] Documents on File Type Date 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
--- OUTSIDE RECORDS SUMMARY | 2023-06-18 03:17 | External Medical Summary | Summary of Care ---
Author Name Unknown Organization [place] [address] Care Team Providers Care Tool Checker Name Role Phone Marcela Pinto MD Primary Care Provider + Reason for Visit * Reason Onset Date Comments Hospital Follow-Up [facility] on 12/05/2020 to 12/18/2020 for "Congestive heart failure", one night stay Hospital Follow-Up 01/09/2021 Encounter Details Date Type Department Care Team Description 12/21/2020 Office Visit General Internal Medicine [facility] [place] [address] [facility] [place] [address] Marcela Pinto MD [address] [place] [address] [phone] Acute systolic heart failure (HCC)*; DM type 2 nursing care encounter (HCC); Hyperlipidemia with target LDL less than 100; Diabetes mellitus with stage 3 chronic kidney disease (HCC); Type 2 diabetes mellitus with hemoglobin A1c goal of less than 7.5% (HCC); Nocturnal hypoxia; Sleep apnea, obstructive; Morbid obesity with BMI of 40.0-44.9, adult (HCC); COPD, group B, 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 (HCC); Ischemic colitis (HCC); Paroxysmal atrial fibrillation (HCC); Hospital discharge follow-up Allergies Active Allergy Reactions Severity Noted Date Comments Valsartan 07/10/2010 Enalapril 05/21/2006 Escitalopram Oxalate Nausea/vomiting 10/11/2009 Nauseated Iodinated Diagnostic Agents Nausea/vomiting 05/2010 IV Contrast Iodine Hives 12/18/2009 IV Contrast Lisinopril 05/21/2006 Metoprolol Tartrate 11/18/2006 Made pulse low [place] Oil-Black Currant-Vit E 07/10/2010 Verapamil 03/21/2004 Bupropion Hcl 10/30/2009 Makes pt sick in the stomach documented as of this encounter (statuses as of 01/09/2021) Medications Medication Sig Dispensed Refills Start Date [...] 300 Each 1 01/05/2020 Active Glucose Blood ([employer] CONTOUR TEST) STRPIndications:Type 2 diabetes mellitus with [...] Patient reports increased by physician at [facility], Reported on 12/21/2020 metroNIDAZOLE 500 MG Oral [...] as of this encounter (statuses as of 01/09/2021) Active Problems Problem Noted Date Asthma in [...] as of this encounter (statuses as of 01/09/2021) Resolved Problems Problem Noted Date Resolved Date [...] Hypoxemia 10/08/2011 10/30/2015 Genetic Sleep Disorder Research Other*[id number] 07/25/2011 05/15/2016 Diverticulitis of colon 07/25/2011 01/06/20 [...] as of this encounter (statuses as of 01/09/2021) Immunizations Name Administration Dates Next Due COVID-19 [...] Sign Reading Time Taken Comments Blood Pressure 134/76 12/21/2020 3:40 PM EST Pulse 64 12/21/2020 3:40 PM EST Temperature 36.3 C (97.4 F) 12/21/2020 3 :40 PM EST Respiratory Rate 20 12/21/2020 3:40 PM EST Oxygen Saturation - - Inhaled Oxygen Concentration - - Weight 110 kg (242 lb 9.6 oz) 12/21/2020 3:40 PM EST Done at home this morning with health nurse, pt in [place] Height - - Body Mass Index 40.37 06/22/2020 2:46 PM EDT documented in this encounter Patient Instructions * Patient Instructions* Hiwot ValladaresNICOL - 12/21/2020 3:39 PM EST Diabetes: Keeping Feet Healthy Inspect [...] calluses yourself. Talk to your doctor or cod clerk (a doctor who specializes in foot care) [...] the area doesnt appear to be healing. [id number] [employer], [address] [place] [address], [place] [address]. All rights reserved. This information is not intended as a substitute for professional medical care. Always follow your healthcare professional's instructions. documented in this encounter Progress Notes * Marcela Pinto MD - 12/21/2020 3:51 PM EST HPI: Nina Harrington is a 80 year old female who presents with: Chief Complaint Patient presents with Hospital Follow-Up [facility] on 12/05/2020 to 12/18/2020 for "Congestive heart failure", one night stay Pt is here for the hospital follow up. Chart reviewed from the hospital including admission note, Hand P, consult notes, labs, EKG, imaging and discharge note including discharge meds. Patient states she is feeling better since went back home. Pt was admitted to the hospital on 12/03/20 and was discharged on Admission Diagnosis : CHF exaberation. As per the review of the chart and discussion with the patient she ended up in [facility] emergency room with shortness of breath for 4 days and states the onset was gradual. Patient did not have any chest pain. She did have some abdominal bloating. Patient had labs, x-ray chest, EKG and echocardiogram done while in the hospital. Chest x-ray showed enlarged heart with or without pericardial effusion, prominent perihilar structure likely representing prominent bilateral pulmonary artery, mild PVC. EKG showed no ST elevation or depression. No acute changes. Bl LE venous duplex: NO DVT or phlebitis. Pt has been followed up by child support case officer and specialists. 2 D Echo showed: FINAL IMPRESSIONS: 01) Nondilated left ventricle with segmental abnormalities as described above and mild to moderately decreased systolic function. Wall thickness is increased consistent with mild left ventricular hypertrophy. The estimated left ventricular ejection fraction is 35-40%. 02) Mildly dilated right ventricle. The right ventricle has mildly decreased function. 03) Thickened and non-restricted aortic valve with mild aortic stenosis. The aortic valve area is 1.3 cm2 and the mean gradient is 6 mmHg. 04) Thickened mitral valve with mild stenosis and moderate regurgitation. 05) Mitral annular calcification. 06) Mild left atrial enlargement. 07) Borderline pulmonary hypertension; the estimated pulmonary artery systolic pressure is 44 mmHg. 08) There is an impaired relaxation pattern consistent with diastolic dysfunction grade 1. 09) Microbubble contrast with Definity was administered for left ventricular opacification. 10) Dilated inferior vena cava, consistent with increased right atrial pressure. As patient's symptoms were out of proportion to findings on chest x-ray D-dimer was added which waspositive. And then patient had CT chest. CT chest showed no PE, stable mild dilatation of the pulmonary artery suggestive of pulmonary artery hypertension. Pt had Cath done: No significant blockage. EF 35% Later patient did receive DuoNeb and IV Lasix as was found to have CHF examination. Patient did not bring any medications with her but is very well aware which medications were changed and what she is taking at this time. Also reviewed the chart from [facility] under scanned documents. Currently patient is taking Lasix 80 mg orally twice a day. States her swelling and shortness of breath is much better than before. Discussed the importance of low-salt diet, daily weight and close monitoring of symptoms. Patient does follow up with Dr. Meza Now. Pt had Afib last year and had another episode, off anticoag as has hx of GI bleed. Has some hematoma at Rt wrist area where she had cath done. Pt is getting her second shot of Covid tomorrow at [facility]. New meds: Coreg 3.125 mg orally twice daily Lisinopril 2.5 mg po daily. Currently she is using oxygen 2 lit/min during day and 4 lit at night. 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 Lisinopril 2.5 MG Oral Tablet (Prinivil) Take 2.5 mg by mouth daily. Promethazine HCl 25 MG Oral Tablet (Phenergan) TAKE 1 TABLET BY MOUTH EVERY 6 HOURS NEEDED FOR NAUSEA 30 Tab 0 Combivent Respimat 20-100 MCG/ACT Inhalation Aerosol Solution (Ipratropium- Albuterol) TAKE 1 PUFF BY MOUTH 4 TIMES A DAY 12 g 3 HYDROcodone-Acetaminophen 5-325 MG Oral Tablet Take 1 Tab by mouth every 6 hours as needed for Pain, Mild. 120 Tab 0 Furosemide 40 MG Oral Tablet (Lasix) Take 1 Tab by mouth daily. (Patient taking differently: Take 80 mg by mouth daily. Patient reports increased by physician at [facility]) 90 Tab 1 Klor-Con M20 20 MEQ Oral Tablet Extended Release (Potassium Chloride Annalisa ER) TAKE 1 TABLET BY MOUTH EVERY DAY 90 Tab 1 Omeprazole 20 MG Oral Capsule Delayed Release (PriLOSEC) TAKE 1 CAPSULE BY MOUTH TWICE A DAY 180 Cap 1 Atorvastatin Calcium 40 MG Oral Tablet (LIPITOR) TAKE 1 TABLET BY MOUTH EVERY DAY 90 Tab 1 Zafirlukast 20 MG Oral Tablet (ACCOLATE) TAKE 1 TABLET BY MOUTH EVERY DAY 90 Tab 3 methIMAzole 5 MG Oral Tablet (TAPAZOLE) Take 5 mg by mouth daily. doxycycline 100 MG Tablet Take 100 mg by mouth 2 times a day. RESCUE KIT: Take for Colds. dicyclomine (BENTYL) 20 MG Tablet Take 1 Tab by mouth daily. 90 Tab 2 Blood Glucose Monitoring Suppl (CONTOUR MONITOR) w/Device KIT USE TO TEST BLOOD SUGAR 3 TIMES ADAY FOR DIAGNOSIS CODE OF E11.9 1 Kit 0 Glucose Blood ([employer] CONTOUR TEST) STRP USE TO TEST BLOOD SUGAR 3 TIMES A DAY FOR DIAGNOSIS CODE OF E11.9 300 Strip 1 Lancets [facility] Use as directed. USE TO TEST BLOOD SUGAR 3 TIMES A DAY FOR DIAGNOSIS CODE OF E11.9300 Each 1 Albuterol Sulfate (VENTOLIN HFA) 108 (90 Base) MCG/ACT AERS Inhale 2 Puffs by mouth 2 times a day. guaiFENesin-codeine (ROBITUSSIN AC) 100-10 MG/5ML solution Take 10 mL by mouth every 4 hours asneeded. zoster vac recomb adjuvanted (SHINGRIX) 50 MCG/0.5ML [...] 1000 UNITS PO TABS one tablet daily Ciprofloxacin HCl 500 MG Oral Tablet (Cipro) TAKE 1 TABLET BY MOUTH EVERY 12 HOURS FOR 10 DAYS 20 Tab 0 metroNIDAZOLE 500 MG Oral Tablet (Flagyl) TAKE 1 TAB BY MOUTH 3 TIMES A DAY FOR 10 DAYS. 30 Tab 0 Incruse Ellipta 62.5 MCG/INH Inhalation Aerosol Powder Breath Activated INHALE 1 PUFF BY MOUTH EVERY DAY (Patient not taking: Reported on 12/21/2020) 90 Each 3 ondansetron ODT (ZOFRAN) [address] 8 mg on tongue every 8 hours as needed for Nausea. dissolve on tongue. dilTIAZem HCl ER Beads 240 MG CP24 Take 240 mg by mouth. One tablet daily The patient's medication list was reviewed and updated as needed. 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 OBJECTIVE: BP 134/76 (BP Site: Left Arm, BP Position: Sitting, BP Cuff Size: Large) | Pulse 64 | Temp 36.3 C(97.4 F) (Tympanic) | Resp 20 | Wt 110 kg (242 lb 9.6 oz) Comment: Done at home this morning withhealth nurse, pt in wheel jane | No | BMI 40.37 kg/m | BSA 2.25 m PHYSICAL EXAM: Has oxygen in 2 lit HEENT: PERRLA, EOMI, anicteric sclera, , no lymphadenopathy, neck supple CVS: RRR, no murmurs, rubs or gallops, s1 s 2normal. RESP: clear to auscultation, no wheezing or crackles ABD: soft, NT/ND EXT: Bl trace edema, No cyanosis, peripheral pulses palpable bilaterally No large joint swelling, no redness, range of motion normal. Skin normal. Gait normal. Mood stable No focal weakness ASSESSMENT AND PLAN: Acute systolic heart failure (HCC) (Primary) Compensated. Currently on lasix 40 mg tablet 2 pills twice daily with k supplements. Fluid restriction . Leg elevation. DM type 2 nursing care encounter ([facility]) - DIABETES FOOT EXAM Hyperlipidemia with target LDL less than 100 Diabetes mellitus with stage 3 chronic kidney disease ([facility]) Currently on Amaryl an ddiscussed to switch to Glipizide next time we see her. Type 2 diabetes mellitus with hemoglobin A1c goal of less than 7.5% ([facility]) Nocturnal hypoxia Sleep apnea, obstructive Uses only oxygen 4 lit aqt night. Morbid obesity with BMI of 40.0-44.9, adult ([facility]) Advised low salt, daily weight Marcela Pinto MD * Hiwot Valladares LPN - 12/21/2020 3:29 PM EST Chief Complaint Patient presents with Hospital Follow-Up [facility] on 12/05/2020 to 12/18/2020 for "Congestive heart failure", one night stay DM Foot Exam completed today. Provider aware. Hiwot Valladares LPN Socks and Shoes Removed for Annual [...] surface of foot documented in this encounter Plan of Treatment Upcoming Encounters Date Type Specialty Care Team Description 04/10/2021 Office Visit Internal Medicine Marcela Pinto MD [address] [place] [address], [place] [address] [phone] Health Maintenance Due Date Last Done Comments Zoster Vaccines (2 of 3) 08/31/2012 07/06/2012 CKD PHOS USE SMARTSET 90255 03/22/2020 03/22/2019 COVID-19 Vaccine (2 - Pfizer 2-dose series) 12/22/2020 2020 DIABETES-HGBA1C EVERY 6 MONTHS 06/04/2021 12/05/2020, 08/10/2020, 06/28/2020, Additional history exists CKD GFR USE SMARTSET 49553 07/06/202101/03, 12/05/2020, 07/19/2020, Additional history exists DIABETES-EYE EXAM 08/07/2021 08/07/2020, , 09/14/2018, Additional history exists DIABETES-FOOT EXAM 12/21/2021 12/21/2020, 0 10/19/2019, 01/05/2019, Additional history exists CKD HGB USE SMARTSET 13569 01/03/202201/03, 12/05/2020, 07/19/2020, Additional history exists Dexa [...] of this encounter Visit Diagnoses Diagnosis Acute systolic heart failure (HCC)- Primary Acute systolic heart failure DM type 2 nursing care encounter (HCC) Type II or unspecified type diabetes mellitus without mention of complication, not stated as uncontrolled Hyperlipidemia with target LDL less than 100 Other and unspecified hyperlipidemia Diabetes mellitus with stage 3 chronic kidney disease (HCC) Type II or unspecified type diabetes mellitus with renal manifestations, not stated as uncontrolled Type 2 diabetes mellitus with hemoglobin A1c goal of less than 7.5% (HCC) Nocturnal hypoxia Hypoxemia Sleep apnea, obstructive Obstructive sleep apnea (adult) (pediatric) Morbid obesity with BMI of 40.0-44.9, adult (HCC) Morbid obesity COPD, group B, 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 (HCC) Ischemic colitis (HCC) Unspecified vascular insufficiency of intestine Paroxysmal atrial fibrillation (HCC) Atrial fibrillation Hospital discharge follow-up Other follow-up examination documented in this encounter Advance Directives Documents on File Type Date Recorded 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
--- OUTSIDE RECORDS SUMMARY | 2023-06-18 03:17 | External Medical Summary | Summary of Care ---
Author Name Unknown Organization [place] [address] Care Team Providers Care Production Leader Name Role Phone Alex Pinto MD Primary Care Provider + Reason for Visit * Reason Comments eRx-Medication Refill Encounter Details Date Type Department Care Team Description 12/19/2020 Refill General Internal Medicine [facility] [address] [place] [address] Alex Pinto MD [address] [place] [address] [phone] GENERAL OSTEOARTHROSIS Allergies Active Allergy Reactions Severity Noted Date Comments Valsartan 07/10/2010 Enalapril 05/21/2006 Escitalopram Oxalate Nausea/vomiting 10/11/2009 Nauseated Iodinated Diagnostic Agents Nausea/vomiting 05/2010 IV Contrast Iodine Hives 12/18/2009 IV Contrast Lisinopril 05/21/2006 Metoprolol Tartrate 11/18/2006 Made pulse low [place] Oil-Black Currant-Vit E 07/10/2010 Verapamil 03/21/2004 Bupropion Hcl 10/30/2009 Makes pt sick in the stomach documented as of this encounter (statuses as of 12/20/2020) Medications Medication Sig Dispensed Refills Start Date [...] 300 Each 1 0 Active Glucose Blood ([employer] CONTOUR TEST) STRPIndications:Typ e 2 diabetes mellitus [...] OF E11.9 1 Kit 0 0 Active dicyclomine (BENTYL) 20 MG TabletIndications:C hronic constipation Take 1 Tab by mouth daily. 90 Tab 2 0 Active dilTIAZem HCl ER Beads 240 [...] EVERY DAY 90 Each 3 0 Active methIMAzole 5 MG Oral Tablet [...] Delayed Release (PriLOSEC)Indicatio ns:Ischemic colitis ([facility]) TAKE [...] mouth daily. 90 Tab 1 1 Active metroNIDAZOLE 500 MG Oral Tablet (Flagyl) TAKE 1 TAB BY MOUTH 3 TIMES A DAY FOR 10 DAYS. 30 Tab 0 1 Active Ciprofloxacin HCl 500 MG Oral Tablet (Cipro) TAKE 1 TABLET BY MOUTH EVERY 12 HOURS FOR 10 DAYS 20 Tab 0 1 Active HYDROcodone-Acetami nophen 5-325 MG Oral TabletIndications:G eneralized osteoarthritis Take 1 Tab by mouth every 6 hours as needed for Pain, Mild. 120 Tab 0 1 Active Combivent Respimat 20-100 MCG/ACT Inhalation [...] Active Promethazine HCl 25 MG Oral Tablet (PHENERGAN)Indicati ons:Generalized osteoarthritis Take 1 Tab by mouth every 6 hours as needed for Nausea. 30 Tab 0 0 12/21/19 21 Discontinued documented as of this encounter (statuses as of 12/20/2020) Active Problems Problem Noted Date Diabetes mellitus [...] as of this encounter (statuses as of 12/20/2020) Resolved Problems Problem Noted Date Resolved Date [...] Hypoxemia 10/08/2011 10/30/2015 Genetic Sleep Disorder Research Other*[id number] 07/25/2011 05/15/2016 Diverticulitis of colon 07/25/2011 01/06/20 [...] as of this encounter (statuses as of 12/20/2020) Immunizations Name Administration Dates Next Due Hepatitis B, 20+ yrs 10/01/2017,04/21/2017,03/20 Pneumococcal Conjugate [...] Telephone Encounter - Alex Pinto MD - 12/20/2020 11:47 AM EST Signed Prescriptions: Disp Refills Promethazine HCl 25 MG Oral Tablet (Phener*30 Tab 0 Sig: TAKE 1 TABLET BY MOUTH EVERY 6 HOURS NEEDED FOR NAUSEA Authorizing Provider: ALEX PINTO * Telephone Encounter - Silver Bansal CPhT - 12/19/2020 6:56 PM EST Pending Prescriptions: Disp Refills Promethazine HCl 25 MG Oral Tablet (Phene*30 Tab 0 Sig: TAKE 1 TABLET BY MOUTH EVERY 6 HOURS NEEDED FOR NAUSEA * Telephone Encounter - Silver Bansal CPhT - 12/19/2020 6:56 PM EST Pending Prescriptions: Disp Refills Promethazine HCl 25 MG Oral Tablet (Phene*30 Tab 0 Sig: TAKE 1 TABLET BY MOUTH EVERY 6 HOURS NEEDED FOR NAUSEA Last Office/Telemedicine Visit: 08/08/2020 Next Office Visit: 12/21/2020 Scheduled Provider(s): Alex Pinto MD If no future appointments scheduled, and last appointment is greater than a year ago, please schedule patient for a follow-up appointment Last date the medication was ordered: 10/10/2020 Pharmacy: [id number] [id number] [facility] Is this request for a controlled [...] Labs: Lab Results Component Value Date/Time CREAT 0.93 12/05/2020 CREAT 1.0 05/27/2020 04:51 PM POTASSIUM 3.7 12/05/2020 POTASSIUM 4.0 05/27/2020 04:51 PM TSH 0.965 12/05/2020 TSH 0.42 07/27/2018 11:32 AM LDLCALC 75.20 12/05/2020 LDLCALC 95 07/27/2018 11:32 AM LDLDIRECT 85 12/05/2020 LDLDIRECT 97 07/27/2018 11:32 AM ALT 15 05/27/2020 04:51 PM HGBA1C 6.5 (A) 12/05/2020 HGBA1C 6.6 (H) 08/26/2019 02:55 PM Thank you, Lee Bansal ([facility]) [employer] [facility] 12/19/2020, 6:56 PM documented in this encounter Plan of Treatment Upcoming Encounters Date Type Specialty Care Team Description 12/21/2020 Office Visit Internal Medicine Alex Pinto MD [address] [place], [facility] [phone] Health Maintenance Due Date Last Done Comments Zoster Vaccines (2 of 3) 08/31/2012 07/06/2012 CKD PHOS USE SMARTSET 61410 03/22/2020 03/22/2019 DIABETES-FOOT EXAM 10/19/2020 10/19/2019, 0 01/05/2019, 01/16/2018, Additional history exists DIABETES-URINE MICROALBUMIN EVERY 12 MONTHS 12/08/2020 12/08/2019, 10/30/2019, 07/09/2019, Additional history exists CKD GFR USE SMARTSET 41125 06/04/202112/05, 07/19/2020, 06/28/2020, Additional history exists DIABETES-HGBA1C EVERY 6 MONTHS 06/04/2021 12/05/2020, 08/10/2020, 06/28/2020, Additional history exists DIABETES-EYE EXAM 08/07/2021 08/07/2020, , 09/14/2018, Additional history exists CKD HGB USE SMARTSET 35624 12/05/202112/05, 07/19/2020, 06/28/2020, Additional history exists Dexa Scan 08/08/2025 08/08/2020, [...] on File Type Date 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
--- OUTSIDE RECORDS SUMMARY | 2023-06-18 03:17 | External Medical Summary | Summary of Care ---
Author Name Unknown Organization [place] [address] Care Team Providers Care Dairy Equipment Mechanic Name Role Phone Marcela Pinto MD Primary Care Provider + Reason for Visit * Reason Onset Date Comments Fax 01/22/2021 Encounter Details Date Type Department Care Team Description 01/22/2021 Telephone General Internal Medicine [facility] [address] [facility] [place] [address] Marcela Pinto MD [address] [place] [address] [phone] Fax Allergies Active Allergy Reactions Severity Noted Date Comments Valsartan 07/10/2010 Enalapril 05/21/2006 Escitalopram Oxalate Nausea/vomiting 10/11/2009 Nauseated Iodinated Diagnostic Agents Nausea/vomiting 05/2010 IV Contrast Iodine Hives 12/18/2009 IV Contrast Lisinopril 05/21/2006 Metoprolol Tartrate 11/18/2006 Made pulse low [place] Oil-Black Currant-Vit E 07/10/2010 Verapamil 03/21/2004 Bupropion [...] classification (FORMERLY [facility]) INHALE 1 PUFF BY MOUTH EVERY DAY [...] s:Ischemic colitis ([facility]) TAKE 1 CAPSULE BY MOUTH TWICE A [...] DAILY, Patient reports increased by physician at [facility], Reported on 12/21/2020 Combivent [...] Hypoxemia 10/08/2011 10/30/2015 Genetic Sleep Disorder Research Other*[id number] 07/25/2011 05/15/2016 Diverticulitis of colon 07/25/2011 01/06/20 [...] mRNA, LNP-s, No Pre serve, 2-Dose Series (Tenebril) 2020 Hepatitis B, 20+ yrs 10/01/2017,04/21/2017,03/20 Pneumococcal [...] Miscellaneous Notes * Telephone Encounter - Renetta GuNICOL - 01/22/2021 4:43 PM EDT Awaiting paperwork to complete for patient. * Telephone Encounter - Lindsey Quintana CPhT - 01/22/2021 4:31 PM EDT Pt calling in states she was needing to let office know brand of strips she uses. Pt states she uses CareSens strips and Monitor. Thank You, Lindsey Quintana CPhT Quality System Manager [employer] 01/22/2021, 4:32 PM * Telephone Encounter - GuRenetta mcdonaldNICOL - 01/22/2021 4:26 PM EDT Called number below to fax to [phone]. Thank you * Telephone Encounter - Crystal Miranda OSA - 01/22/2021 3:17 PM EDT Received a call asking if fax was received by office. Name/Company sending fax: [employer] What fax is pertaining to: Diabetic supplies script and last office notes request Date(s) they sent request: 01/18/21 Verified fax number they are sending to is correct (Y or N): [phone] Callback Number for the clinic to call to verified if fax was received: [phone] documented in this encounter Plan of Treatment Upcoming Encounters Date Type Specialty Care Team Description 04/10/2021 Office Visit Internal Medicine Marcela Pinto MD [address] [facility] [place] [address] [phone] Health Maintenance Due Date Last Done Comments Zoster Vaccines (2 of 3) 08/31/2012 07/06/2012 CKD PHOS USE SMARTSET 85209 03/22/2020 03/22/2019 COVID-19 Vaccine (2 - Pfizer 2-dose series) 12/22/2020 2020 DIABETES-HGBA1C EVERY 6 MONTHS 06/04/2021 12/05/2020, 08/10/2020, 06/28/2020, Additional history exists CKD GFR USE SMARTSET 50385 07/06/202101/03, 12/05/2020, 07/19/2020, Additional history exists DIABETES-EYE EXAM 08/07/2021 08/07/2020, , 09/14/2018, Additional history exists DIABETES-FOOT EXAM 12/21/2021 12/21/2020, 0 10/19/2019, 01/05/2019, Additional history exists CKD HGB USE SMARTSET 38273 01/03/202201/03, 12/05/2020, 07/19/2020, Additional history exists Dexa [...] Documents on File Type Date Recorded Patient Family Medicine Resident 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
--- OUTSIDE RECORDS SUMMARY | 2023-06-18 03:17 | External Medical Summary | Summary of Care ---
Author Name Unknown Organization [place] [address] Care Team Providers Care Marketing Designer Name Role Phone Alex Pinto MD Primary Care Provider + Reason for Visit * Reason Comments eRx-Medication Refill Encounter Details Date Type Department Care Team Description 01/16/2021 Refill General Internal Medicine [facility] [address] [place] [address] Alex Pinto MD [address] [place] [address] [phone] Allergies Active Allergy Reactions Severity Noted Date Comments Valsartan 07/10/2010 Enalapril 05/21/2006 Escitalopram Oxalate Nausea/vomiting 10/11/2009 Nauseated Iodinated Diagnostic Agents Nausea/vomiting 05/2010 IV Contrast Iodine Hives 12/18/2009 IV Contrast Lisinopril 05/21/2006 Metoprolol Tartrate 11/18/2006 Made pulse low [place] Oil-Black Currant-Vit E 07/10/2010 Verapamil 03/21/2004 Bupropion Hcl 10/30/2009 Makes pt sick in the stomach documented as of this encounter (statuses as of 01/17/2021) Medications Medication Sig Dispensed Refills Start Date [...] 300 Each 1 0 Active Glucose Blood (UpCounsel CONTOUR TEST) STRPIndications:Typ e 2 diabetes mellitus with hemoglobin A1c goal of less than 7.0% (FORMERLY [facility]) USE TO TEST BLOOD SUGAR 3 TIMES [...] 2017 classification (FORMERLY [facility]) INHALE 1 PUFF BY MOUTH EVERY DAY [...] DAILY, Patient reports increased by physician at [facility], Reported on 12/21/2020 Combivent Respimat [...] 10 DAYS. 30 Tab 0 1 Active metroNIDAZOLE 500 MG Oral Tablet (Flagyl) TAKE 1 TAB BY MOUTH 3 TIMES A DAY FOR 10 DAYS. 30 Tab 0 1 01/18/20 21 Discontinued Ciprofloxacin HCl 500 MG Oral Tablet (Cipro) TAKE 1 TABLET BY MOUTH EVERY 12 HOURS FOR 10 DAYS 20 Tab 0 1 01/18/20 21 Discontinued documented as of this encounter (statuses as of 01/17/2021) Active Problems Problem Noted Date Asthma in [...] as of this encounter (statuses as of 01/17/2021) Resolved Problems Problem Noted Date Resolved Date [...] Hypoxemia 10/08/2011 10/30/2015 Genetic Sleep Disorder Research Other*[id number] 07/25/2011 05/15/2016 Diverticulitis of colon 07/25/2011 01/06/20 [...] as of this encounter (statuses as of 01/17/2021) Immunizations Name Administration Dates Next Due COVID-19 mRNA, LNP-s, No Pre serve, 2-Dose Series (Duolingo) 2020 Hepatitis B, 20+ yrs 10/01/2017,04/21/2017,03/20 Pneumococcal [...] Telephone Encounter - Alex Pinto MD - 01/17/2021 4:45 PM EDT Signed Prescriptions: Disp Refills Ciprofloxacin HCl 500 MG Oral Tablet (Cipr*20 Tab 0 Sig: TAKE 1 TABLET BY MOUTH EVERY 12 HOURS FOR 10 DAYS Authorizing Provider: ALEX PINTO metroNIDAZOLE 500 MG Oral Tablet (Flagyl) 30 Tab 0 Sig: TAKE 1 TAB BY MOUTH 3 TIMES A DAY FOR 10 DAYS. Authorizing Provider: ALEX PINTO * Telephone Encounter - Eliezer Bernard [facility] - 01/17/2021 12:40 PM EDT Pending Prescriptions: Disp Refills Ciprofloxacin HCl 500 MG Oral Tablet [Phar*20 Tab 0 Sig: TAKE 1 TABLET BY MOUTH EVERY 12 HOURS FOR 10 DAYS metroNIDAZOLE 500 MG Oral Tablet [Pharmacy*30 Tab 0 Sig: TAKE 1 TAB BY MOUTH 3 TIMES A DAY FOR 10 DAYS. * Telephone Encounter - Eliezer Bernard [facility] - 01/17/2021 12:40 PM EDT Refill pharmacists currently not authorized to approve refills for this class of medication per refill protocol. Please approve if appropriate. Thanks, Eliezer Bernard, R.Ph. Clinical Pharmacist [facility] [phone] 01/17/2021,12:40 PM Pending Prescriptions: Disp Refills Ciprofloxacin HCl 500 MG Oral Tablet [Phar*20 Tab 0 Sig: TAKE 1 TABLET BY MOUTH EVERY 12 HOURS FOR 10 DAYS metroNIDAZOLE 500 MG Oral Tablet [Pharmacy*30 Tab 0 Sig: TAKE 1 TAB BY MOUTH 3 TIMES A DAY FOR 10 DAYS. Last Office/Telemedicine Visit: 12/21/2020 Next Office Visit: 04/10/2021 Scheduled Provider(s): Alex Pinto MD If no future appointments scheduled, and last appointment is greater than a year ago, please schedule patient for a follow-up appointment Last date the medication was ordered: 11/23/20 Pharmacy: [id number] [address] [facility] Is this request for a controlled [...] Labs: Lab Results Component Value Date/Time CREAT 1.05 (A) 01/03/2021 CREAT 1.0 05/27/2020 04:51 PM POTASSIUM 3.9 01/03/2021 POTASSIUM 4.0 05/27/2020 04:51 PM TSH 0.965 [...] Office Visit Internal Medicine Alex Pinto MD [address] [place] [address] [place] [address] [phone] Health Maintenance Due Date Last Done Comments Zoster Vaccines (2 of 3) 08/31/2012 07/06/2012 CKD PHOS USE SMARTSET 99277 03/22/2020 03/22/2019 COVID-19 Vaccine (2 - Pfizer 2-dose series) 12/22/2020 2020 DIABETES-HGBA1C EVERY 6 MONTHS 06/04/2021 12/05/2020, 08/10/2020, 06/28/2020, Additional history exists CKD GFR USE SMARTSET 11224 07/06/202101/03, 12/05/2020, 07/19/2020, Additional history exists DIABETES-EYE EXAM 08/07/2021 08/07/2020, , 09/14/2018, Additional history exists DIABETES-FOOT EXAM 12/21/2021 12/21/2020, 0 10/19/2019, 01/05/2019, Additional history exists CKD HGB USE SMARTSET 44453 01/03/202201/03, 12/05/2020, 07/19/2020, Additional history exists Dexa [...] Documents on File Type Date Recorded 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
--- OUTSIDE RECORDS SUMMARY | 2023-06-18 03:17 | External Medical Summary | Summary of Care ---
Author Name Unknown Organization [place] [address] Care Team Providers Care Government Services Professional Name Role Phone Alex Pinto MD Primary Care Provider + Reason for Visit * Reason Onset Date Comments Medication Refill 01/15/2021 Encounter Details Date Type Department Care Team Description 01/15/2021 Refill General Internal Medicine [facility] [address] [place] [address] Alex Pinto MD [address] [place] [address] [phone] GENERAL OSTEOARTHROSIS Allergies Active Allergy Reactions Severity Noted Date Comments Valsartan 07/10/2010 Enalapril 05/21/2006 Escitalopram Oxalate Nausea/vomiting 10/11/2009 Nauseated Iodinated Diagnostic Agents Nausea/vomiting 05/2010 IV Contrast Iodine Hives 12/18/2009 IV Contrast Lisinopril 05/21/2006 Metoprolol Tartrate 11/18/2006 Made pulse low [place] Oil-Black Currant-Vit E 07/10/2010 Verapamil 03/21/2004 Bupropion Hcl 10/30/2009 Makes pt sick in the stomach documented as of this encounter (statuses as of 01/15/2021) Medications Medication Sig Dispensed Refills Start Date [...] 300 Each 1 01/05/2020 Active Glucose Blood (FastDue CONTOUR TEST) STRPIndications:Typ e 2 diabetes mellitus with hemoglobin A1c goal of less than 7.0% ([facility]) USE TO TEST BLOOD SUGAR 3 TIMES A DAY FOR DIAGNOSIS CODE OF E11.9 300 Strip 1 01/05/2020 Active Blood Glucose Monitoring Suppl (CONTOUR MONITOR) w/Device KIT USE TO TEST BLOOD SUGAR 3 TIMES A DAY FOR DIAGNOSIS CODE OF E11.9 1 Kit 0 01/05/2020 Active dicyclomine (BENTYL) 20 MG TabletIndications:C hronic [...] 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 ([facility]) INHALE 1 PUFF BY MOUTH EVERY DAY [...] 10/18/2020 Active Furosemide 40 MG Oral Tablet (Lasix)Indications: Essential hypertension with goal blood pressure less than 130/80 Take 1 Tab by mouth daily. 90 Tab 1 11/08/2020 Active Additional Information Patient taking differently: 80 mg Oral DAILY, Patient reports increased by physician at [facility], Reported on 12/21/2020 metroNIDAZOLE 500 MG Oral Tablet (Flagyl) TAKE 1 TAB BY MOUTH 3 TIMES A DAY FOR 10 DAYS. 30 Tab 0 11/23/2020 Active Ciprofloxacin HCl 500 MG Oral Tablet (Cipro) TAKE 1 TABLET BY MOUTH EVERY 12 HOURS FOR 10 DAYS 20 Tab 0 11/23/2020 Active Combivent Respimat 20-100 MCG/ACT Inhalation Aerosol [...] mg by mouth daily. 0 12/13/2020 Active HYDROcodone-Acetami nophen 5-325 MG Oral TabletIndications:G eneralized osteoarthritis Take 1 Tab by mouth every 6 hours as needed for Pain, Mild. 120 Tab 0 01/15/2021 Active HYDROcodone-Acetami nophen 5-325 MG Oral TabletIndications:G eneralized osteoarthritis Take 1 Tab by mouth every 6 hours as needed for Pain, Mild. 120 Tab 0 2020 Discontinu ed(Refill) documented as of this encounter (statuses as of 01/15/2021) Active Problems Problem Noted Date Asthma in [...] as of this encounter (statuses as of 01/15/2021) Resolved Problems Problem Noted Date Resolved Date [...] Hypoxemia 10/08/2011 10/30/2015 Genetic Sleep Disorder Research Other*[id number] 07/25/2011 05/15/2016 Diverticulitis of colon 07/25/2011 01/06/20 [...] as of this encounter (statuses as of 01/15/2021) Immunizations Name Administration Dates Next Due COVID-19 mRNA, LNP-s, No Pre serve, 2-Dose Series (Cazoodle) 2020 Hepatitis B, 20+ yrs 10/01/2017,04/21/2017,03/20 Pneumococcal [...] Telephone Encounter - Alex Pinto MD - 01/15/2021 2:51 PM EDT Signed Prescriptions: Disp Refills HYDROcodone-Acetaminophen 5-325 MG Oral Ta*120 Tab0 Sig: Take 1Tab by mouth every 6 hours as needed for Pain, Mild.Authorizing Provider: ALEX PINTO----- * Telephone Encounter - Chantel Miranda, LIQUEFIED NATURAL GAS PLANT OPERATOR - 01/15/2021 2:18 PM EDT Pending Prescriptions: Disp Refills HYDROcodone-Acetaminophen 5-325 MG Oral T*120 Tab0 Sig: Take 1 Tab by mouth every 6 hours as needed for Pain, Mild. 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 Allergic rhinitis J30.9 Nocturnal hypoxia G47.34 Sleep apnea, obstructive G47.33 ACEI/ARB contraindicated [id number] HTN, goal below 140/90 I10 Hyperlipidemia with target LDL less than 100 E78.5 Controlled substance agreement signed Z79.899 Type 2 diabetes mellitus with hemoglobin A1c goal of less than 7.5% ([facility]) E11.9 Hypercalcemia E83.52 Elevated plasma metanephrines R79.89 Irritable bowel syndrome with constipation K58.1 Ischemic colitis ([facility]) K55.9 HECTOR (generalized anxiety disorder) F41.1 COPD, group B, 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 ([facility]) J44.9 Morbid obesity with BMI of 40.0-44.9, adult ([facility]) E66.01, Z68.41 Gastro-esophageal reflux disease without esophagitis K21.9 Diabetes mellitus with stage 3 chronic kidney disease ([facility]) E11.22, N18.30 Paroxysmal atrial fibrillation ([facility]) I48.0 Asthma in remission J45.998 Asthma, mild persistent J45.30 Asthma, moderate persistent J45.40 Asthma, severe persistent J45.50 Intermittent asthma with reliever use up to twice per week J45.20 Labs: Lab Results Component Value Date/Time CREATININE - [facility] 1.0 05/27/2020 04:51 PM CREATININE TIM 221 08/26/2019 02:57 PM CREATININE, 24 HOUR URINE - [facility] 1.106 02/26/2017 09:11 AM CREATININE, RANDOM URINE - [facility] 128 07/09/2019 01:57 PM CREATININE-OUTSIDE LAB 1.05 (A) 01/03/2021 Lab Results Component Value Date/Time POTASSIUM - [facility] 4.0 05/27/2020 04:51 PM POTASSIUM-OUTSIDE LAB 3.9 01/03/2021 Lab Results Component Value Date/Time TSH - [...] Date/Time HEMOGLOBIN A1C - [facility] 6.6 (H) 08/26/2019 02:55 PM HEMOGLOBIN A1C - [facility] 6.8 (H) 07/27/2018 11:32 AM HEMOGLOBIN A1C - [facility] 6.2 01/14/2018 12:03 PM documented in this encounter Plan of Treatment Upcoming Encounters Date Type Specialty Care Team Description 04/10/2021 Office Visit Internal Medicine Alex Pinto MD [address] [place] [address] Health Maintenance Due Date Last Done Comments Zoster Vaccines (2 of 3) 08/31/2012 07/06/2012 CKD PHOS USE SMARTSET 03321 03/22/2020 03/22/2019 COVID-19 Vaccine (2 - Pfizer 2-dose series) 12/22/2020 2020 DIABETES-HGBA1C EVERY 6 MONTHS 06/04/2021 12/05/2020, 08/10/2020, 06/28/2020, Additional history exists CKD GFR USE SMARTSET 07378 07/06/202101/03, 12/05/2020, 07/19/2020, Additional history exists DIABETES-EYE EXAM 08/07/2021 08/07/2020, , 09/14/2018, Additional history exists DIABETES-FOOT EXAM 12/21/2021 12/21/2020, 0 10/19/2019, 01/05/2019, Additional history exists CKD HGB USE SMARTSET 09894 01/03/202201/03, 12/05/2020, 07/19/2020, Additional history exists Dexa [...] Documents on File Type Date Recorded Patient Events Specialist 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
--- OUTSIDE RECORDS SUMMARY | 2023-06-18 03:17 | External Medical Summary | Summary of Care ---
Author Name Unknown Organization [place] [address] Care Team Providers Care Auto Body Mechanic Apprentice Name Role Phone Marcela Pinto MD Primary Care Provider + Reason for Visit * Reason Onset Date Comments Fax 01/22/2021 Encounter Details Date Type Department Care Team Description 01/22/2021 Telephone General Internal Medicine [facility] [address] [facility] [place] [address] Marcela Pinto MD [address] [place] [address] [phone] Fax Allergies Active Allergy Reactions Severity Noted Date Comments Valsartan 07/10/2010 Enalapril 05/21/2006 Escitalopram Oxalate Nausea/vomiting 10/11/2009 Nauseated Iodinated Diagnostic Agents Nausea/vomiting 05/2010 IV Contrast Iodine Hives 12/18/2009 IV Contrast Lisinopril 05/21/2006 Metoprolol Tartrate 11/18/2006 Made pulse low [place] Oil-Black Currant-Vit E 07/10/2010 Verapamil 03/21/2004 Bupropion [...] less than 7.0% ([facility]) USE TO TEST BLOOD SUGAR 3 [...] 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 ([facility]) INHALE 1 PUFF BY MOUTH EVERY [...] Delayed Release (PriLOSEC)Indication s:Ischemic colitis ([facility]) TAKE 1 CAPSULE BY MOUTH TWICE [...] DAILY, Patient reports increased by physician at [facility], Reported on 12/21/2020 Combivent Respimat 20-100 MCG/ACT [...] Hypoxemia 10/08/2011 10/30/2015 Genetic Sleep Disorder Research Other*[id number] 07/25/2011 05/15/2016 Diverticulitis of colon 07/25/2011 01/06/20 [...] mRNA, LNP-s, No Pre serve, 2-Dose Series (DutyCalculator) 2020 Hepatitis B, 20+ yrs 10/01/2017,04/21/2017,03/20 Pneumococcal [...] and Monitor. Thank You, Lindsey Quintana CPhT Jewelry Inspector [facility] 01/22/2021, 4:32 PM * Telephone Encounter - Renetta Gu LPN - 01/22/2021 4:26 PM EDT Called number below to fax to [phone]. Thank you * Telephone Encounter - Crystal Miranda OSA - 01/22/2021 3:17 PM EDT Received a call asking if fax was received by office. Name/Company sending fax: [employer] What fax is pertaining to: Diabetic supplies script and last office notes request Date(s) they sent request: 01/18/21 Verified fax number they are sending to is correct (Y or N): [phone] Callback Number for the clinic to call to verified if fax was received: [phone] documented in this encounter Plan of Treatment Upcoming Encounters Date Type Specialty Care Team Description 04/10/2021 Office Visit Internal Medicine Marcela Pinto MD [address] [facility] [place] [address] [phone] Health Maintenance Due Date Last Done Comments Zoster Vaccines (2 of 3) 08/31/2012 07/06/2012 CKD PHOS USE SMARTSET 33055 03/22/2020 03/22/2019 COVID-19 Vaccine (2 - Pfizer 2-dose series) 12/22/2020 2020 DIABETES-HGBA1C EVERY 6 MONTHS 06/04/2021 12/05/2020, 08/10/2020, 06/28/2020, Additional history exists CKD GFR USE SMARTSET 89255 07/06/202101/03, 12/05/2020, 07/19/2020, Additional history exists DIABETES-EYE EXAM 08/07/2021 08/07/2020, , 09/14/2018, Additional history exists DIABETES-FOOT EXAM 12/21/2021 12/21/2020, 0 10/19/2019, 01/05/2019, Additional history exists CKD HGB USE SMARTSET 71791 01/03/202201/03, 12/05/2020, 07/19/2020, Additional history exists Dexa [...] Documents on File Type Date Recorded Patient Automation Design Engineer 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
--- OUTSIDE RECORDS SUMMARY | 2023-06-18 03:18 | External Medical Summary | Summary of Care ---
Author Name Unknown Organization [place] [address] Care Team Providers Care Leaf Binner Name Role Phone Marcela Pinto MD Primary Care Provider + Encounter Details Date Type Department Care Team Description 12/06/2020 Orders Only General Internal Medicine [facility] [place] [address] [place] [address] Marcela Pinto MD [address] [place] [address] [phone] Allergies Active Allergy Reactions Severity Noted Date Comments Valsartan 07/10/2010 Enalapril 05/21/2006 Escitalopram Oxalate Nausea/vomiting 10/11/2009 Nauseated Iodinated Diagnostic Agents Nausea/vomiting 05/2010 IV Contrast Iodine Hives 12/18/2009 IV Contrast Lisinopril 05/21/2006 Metoprolol Tartrate 11/18/2006 Made pulse low [place] Oil-Black Currant-Vit E 07/10/2010 Verapamil 03/21/2004 Bupropion Hcl 10/30/2009 Makes pt sick in the stomach documented as of this encounter (statuses as of 12/06/2020) Medications Medication Sig Dispensed Refills Start Date [...] 7.0% ([facility]) USE TO TEST BLOOD SUGAR 3 TIMES A DAY FOR DIAGNOSIS CODE OF E11.9 300 Strip 1 01/05/2020 Active Blood Glucose Monitoring Suppl (CONTOUR MONITOR) w/Device KIT USE TO TEST BLOOD SUGAR 3 TIMES A DAY FOR DIAGNOSIS CODE OF E11.9 1 Kit 0 01/05/2020 Active COMBIVENT RESPIMAT 20-100 MCG/ACT InhalerIndications:A sthma with severity to be determined,COPD, moderate ([facility]) TAKE 1 PUFF BY MOUTH 4 TIMES A DAY 12 g 3 01/14/2020 Active dicyclomine (BENTYL) 20 MG TabletIndications:Ch ronic [...] classification ([facility]) INHALE 1 PUFF BY MOUTH EVERY DAY 90 Each 3 07/02/2020 Active methIMAzole 5 MG Oral Tablet (TAPAZOLE) [...] A DAY 180 Cap 1 10/05/2020 Active Promethazine HCl 25 MG Oral Tablet (PHENERGAN)Indicatio ns:Generalized osteoarthritis Take 1 Tab by mouth every 6 hours as needed for Nausea. 30 Tab 0 10/10/2020 Active Klor-Con M20 20 MEQ Oral Tablet Extended Release (Potassium Chloride Annalisa ER)Indications:HTN, goal below 140/90 TAKE 1 TABLET BY MOUTH EVERY DAY 90 Tab 1 10/18/2020 Active Furosemide 40 MG Oral Tablet (Lasix)Indications:E ssential hypertension with goal blood pressure less than 130/80 Take 1 Tab by mouth daily. 90 Tab 1 11/08/2020 Active metroNIDAZOLE 500 MG Oral Tablet (Flagyl) [...] Pain, Mild. 120 Tab 0 2020 Active documented as of this encounter (statuses as of 12/06/2020) Active Problems Problem Noted Date Diabetes mellitus [...] as of this encounter (statuses as of 12/06/2020) Resolved Problems Problem Noted Date Resolved Date [...] Hypoxemia 10/08/2011 10/30/2015 Genetic Sleep Disorder Research Other*[id number] 07/25/2011 05/15/2016 Diverticulitis of colon 07/25/2011 01/06/20 [...] as of this encounter (statuses as of 12/06/2020) Immunizations Name Administration Dates Next Due Hepatitis [...] Team Description 12/21/2020 Office Visit Internal Medicine Marcela Pinto MD [address] [facility] [place] [address] [phone] Health Maintenance Due Date Last Done Comments Zoster Vaccines (2 of 3) 08/31/2012 07/06/2012 CKD PHOS USE SMARTSET 42131 03/22/2020 03/22/2019 DIABETES-FOOT EXAM 10/19/2020 10/19/2019, 0 01/05/2019, 01/16/2018, Additional history exists DIABETES-URINE MICROALBUMIN EVERY 12 MONTHS 12/08/2020 12/08/2019, 10/30/2019, 07/09/2019, Additional history exists CKD GFR USE SMARTSET 92142 01/17/202107/19, 06/28/2020, 05/27/2020, Additional history exists DIABETES-HGBA1C EVERY 6 MONTHS 02/08/2021 08/10/2020, 06/28/2020, 03/10/2020, Additional history exists CKD HGB USE SMARTSET 34098 07/19/202112/05, 07/19/2020, 06/28/2020, Additional history exists DIABETES-EYE EXAM 08/07/2021 08/07/2020, , 09/14/2018, Additional history exists COLONOSCOPY-EVERY 3 YRS AGES 18-100 05/08/2023 05/08/2020, 02/28/2018, 06/05/2017, Additional history exists Dexa Scan 08/08/2025 08/08/2020, [...] Priority Date/Time Associated Diagnosis Comments CHEMISTRY-OUTSIDE Routine 12/05/2020 documented in this encounter Results * CHEMISTRY-OUTSIDE (12/05/2020) CREATININE-OUTSIDE LAB OUTSIDE LAB (SEE SCANNED REPORT) EGFR-OUTSIDE LAB OUTSIDE LAB (SEE SCANNED REPORT) POTASSIUM-OUTSIDE LAB OUTSID E LAB (SEE SCANNED REPORT) GLUCOSE-OUTSIDE LAB OUTSIDE LAB (SEE SCANNED REPORT) HOURS FASTING OUTSIDE LAB (S EE SCANNED REPORT) TRIGLYCERIDES-OUTSIDE LAB OUTSIDE LAB (SEE SCANNED REPORT) CHOLESTEROL-OUTSIDE LAB OUTSIDE LAB (SEE SCANNED REPORT) HDL-OUTSIDE LAB OUTSIDE LAB (SEE SCANNED REPORT) CHOL/HDL RATIO-OUTSIDE LAB OUTSIDE LAB (SEE SCANNED REPORT) LDL (CALCULATED)-OUTSIDE LAB OUTSIDE LAB (SEE SCANNED REPORT) LDL (DIRECT MEASURE)-OUTSIDE LAB OUTSIDE LAB (SEE SCANNED REPORT) HEMOGLOBIN, A1V-DMRYQHH LAB OUTSIDE LAB (SEE SCANNED REPORT) PHOSPHORUS-OUTSIDE LAB OUTSIDE LAB (SEE SCANNED REPORT) PTH-OUTSIDE LAB OUTSIDE LAB (SEE SCANNED REPORT) MICROALBUMIN RATIO-OUTSIDE LAB OUTSIDE LAB (SEE SCANNED REPORT) PROTEIN, UA-OUTSIDE LAB OUTSIDE LAB (SEE SCANNED REPORT) HEMOGLOBIN-OUTSIDE LAB 11.1(A) 12.0 - 16.0 G/DL OUTSIDE LAB (SEE SCANNED REPORT) CHEMISTRY COMMENT-OUTSIDE LAB Comment:CBC- SEE SCAN OUTSIDE LAB (SEE SCANNED REPORT) Specimen Narrative Performed At OUTSIDE LAB (SEE SCANNED REPORT) documented in this encounter Advance Directives Documents on File Type Date Recorded 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
--- OUTSIDE RECORDS SUMMARY | 2023-06-18 03:18 | External Medical Summary | Summary of Care ---
Author Name Unknown Organization [place] [address] Care Team Providers Care Compliance Quality Performance Analyst Name Role Phone Marcela Pinto MD Primary Care Provider + Encounter Details Date Type Department Care Team Description 12/06/2020 Orders Only General Internal Medicine [facility] [place] [address] [place] [address] Marcela Pinto MD [address] [place] [address] [phone] Allergies Active Allergy Reactions Severity Noted Date Comments Valsartan 07/10/2010 Enalapril 05/21/2006 Escitalopram Oxalate Nausea/vomiting 10/11/2009 Nauseated Iodinated Diagnostic Agents Nausea/vomiting 05/2010 IV Contrast Iodine Hives 12/18/2009 IV Contrast Lisinopril 05/21/2006 Metoprolol Tartrate 11/18/2006 Made pulse low [place] Oil-Black Currant-Vit E 07/10/2010 Verapamil 03/21/2004 Bupropion [...] sthma with severity to be determined,COPD, moderate ([facility] [...] Delayed Release (PriLOSEC)Indication s:Ischemic colitis ([facility]) TAKE 1 CAPSULE [...] Hypoxemia 10/08/2011 10/30/2015 Genetic Sleep Disorder Research Other*[id number] 07/25/2011 05/15/2016 Diverticulitis of colon 07/25/2011 01/06/20 [...] Internal Medicine Marcela Pinto MD [address] [place] [address] [phone] Health Maintenance Due Date Last Done Comments Zoster Vaccines (2 of 3) 08/31/2012 07/06/2012 CKD PHOS USE SMARTSET 33041 03/22/2020 03/22/2019 DIABETES-FOOT EXAM 10/19/2020 10/19/2019, 0 01/05/2019, 01/16/2018, Additional history exists DIABETES-URINE MICROALBUMIN EVERY 12 MONTHS 12/08/2020 12/08/2019, 10/30/2019, 07/09/2019, Additional history exists CKD GFR USE SMARTSET 53365 01/17/202112/05, 07/19/2020, 06/28/2020, Additional history exists DIABETES-HGBA1C EVERY 6 MONTHS 02/08/2021 12/05/2020, 08/10/2020, 06/28/2020, Additional history exists DIABETES-EYE EXAM 08/07/2021 08/07/2020, , 09/14/2018, Additional history exists CKD HGB USE SMARTSET 65400 12/05/202112/05, 07/19/2020, 06/28/2020, Additional history exists COLONOSCOPY-EVERY 3 YRS AGES [...] Date/Time Associated Diagnosis Comments CHEMISTRY-OUTSIDE Routine 12/05/2020 TSH Routine 12/05/2020 documented in this encounter Results * TSH (12/05/2020) TSH - OUTSIDE LAB 0.965 0.360 - 3.740 OUTSIDE L AB (SEE SCANNED REPORT) Specimen Blood - Venous blood specime n (specimen) Narrative Performed At OUTSIDE LAB (SEE SCANNED REPORT) * CHEMISTRY-OUTSIDE (12/05/2020) CREATININE-OUTSIDE LAB 0.93 0.55 - 1.02 MG/DL OUTSIDE LAB (SEE SCANNED REPORT) EGFR-OUTSIDE LAB >60 ML/MIN OUTSIDE LAB (SEE SCANNED REPORT) POTASSIUM-OUTSIDE LAB 3.7 3.5 - 5.1 MMOL/L OUTSIDE LAB (SEE SCANNED REPORT) GLUCOSE-OUTSIDE LAB 126(A) 70 - 110 MG/DL OUTSID E LAB (SEE SCANNED REPORT) HOURS FASTING OUTSIDE LAB (S EE SCANNED REPORT) TRIGLYCERIDES-OUTSIDE LAB 99 30 - 200 MG/DL OUTSIDE LAB (SEE SCANNED REPORT) CHOLESTEROL-OUTSIDE LAB 153 <200 MG/DL OUTSIDE LAB (SEE SCANNED REPORT) HDL-OUTSIDE LAB 58.0 40.0 - 59.0 MG/DL OUTSIDE LAB (SEE SCANNED REPORT) CHOL/HDL RATIO-OUTSIDE LAB OUTSIDE LAB (SEE SCANNED REPORT) LDL (CALCULATED)-OUTSIDE LAB 75.20 <100 MG/DL OUTSIDE LAB (SEE SCANNED REPORT) LDL (DIRECT MEASURE)-OUTSIDE LAB 85 <100 MG/DL OUTSIDE LAB (SEE SCANNED REPORT) HEMOGLOBIN, V7C-CHMKHET LAB 6.5(A) 3.8 - 5.6 % OUTSIDE LAB (SEE SCANNED REPORT) PHOSPHORUS-OUTSIDE LAB OUTSIDE LAB (SEE SCANNED REPORT) PTH-OUTSIDE LAB OUTSIDE LAB (SEE SCANNED REPORT) MICROALBUMIN RATIO-OUTSIDE LAB OUTSIDE LAB (SEE SCANNED REPORT) PROTEIN, UA-OUTSIDE LAB OUTSIDE LAB (SEE SCANNED REPORT) HEMOGLOBIN-OUTSIDE LAB OUTSIDE LAB (SEE SCANNED REPORT) CHEMISTRY COMMENT-OUTSIDE LAB Comment:CMP, LIPID, HA1C, MAG, BNP, - SEE SCAN OUTSIDE LAB (SEE SCANNED REPORT) Specimen Narrative Performed At OUTSIDE LAB (SEE SCANNED REPORT) documented in this encounter Advance Directives Documents on File Type Date Recorded Patient Pc Tech 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
--- OUTSIDE RECORDS SUMMARY | 2023-06-18 03:18 | External Medical Summary | Summary of Care ---
Author Name Unknown Organization [place] [address] Care Team Providers Care Gun Stocker Name Role Phone Alex Pinto MD Primary Care Provider + Reason for Visit * Reason Comments eRx-Medication Refill Encounter Details Date Type Department Care Team Description 11/01/2020 Refill General Internal Medicine [facility] [address] [place], [place] [id number] Alex Pinto MD [address] [place], [place] [id number] Allergies Active Allergy Reactions Severity Noted Date Comments Valsartan 07/10/2010 Enalapril 05/21/2006 Escitalopram Oxalate Nausea/vomiting 10/11/2009 Nauseated Iodinated Diagnostic Agents Nausea/vomiting 05/2010 IV Contrast Iodine Hives 12/18/2009 IV Contrast Lisinopril 05/21/2006 Metoprolol Tartrate 11/18/2006 Made pulse low [place] Oil-Black Currant-Vit E 07/10/2010 Verapamil 03/21/2004 Bupropion Hcl 10/30/2009 Makes pt sick in the stomach documented as of this encounter (statuses as of 11/02/2020) Medications Medication Sig Dispensed Refills Start Date [...] 300 Each 1 0 Active Glucose Blood ([employer] CONTOUR TEST) STRPIndications:Typ e 2 diabetes mellitus with hemoglobin A1c goal of less than 7.0% ([facility]) USE TO TEST BLOOD SUGAR 3 TIMES A DAY FOR DIAGNOSIS CODE OF E11.9 300 Strip 1 0 Active Blood Glucose Monitoring Suppl (CONTOUR MONITOR) w/Device KIT USE TO TEST BLOOD SUGAR 3 TIMES A DAY FOR DIAGNOSIS CODE OF E11.9 1 Kit 0 0 Active COMBIVENT RESPIMAT 20-100 MCG/ACT InhalerIndications: Asthma with severity to be determined,COPD, moderate ([facility]) TAKE 1 PUFF BY MOUTH 4 TIMES A DAY 12 g 3 0 Active dicyclomine (BENTYL) 20 MG TabletIndications:C hronic constipation Take 1 Tab by mouth daily. 90 Tab 2 0 Active furosemide (LASIX) 40 MG TabletIndications:E ssential hypertension with goal blood pressure less than 130/80 TAKE 2 TABLETS BY MOUTH TWICE A DAY. TAKE BEFORE A MEAL 360 Tab 1 0 Active Additional Information Patient taking differently: 40 mg DAILY, Reported on 08/08/2020 dilTIAZem HCl ER Beads 240 MG CP24 [...] s:COPD, group B, 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 ([facility]) INHALE 1 PUFF BY MOUTH EVERY DAY [...] A DAY 180 Cap 1 0 Active HYDROcodone-Acetami nophen 5-325 MG Oral TabletIndications:G eneralized osteoarthritis Take 1 Tab by mouth every 6 hours as needed for Pain, Mild. 120 Tab 0 0 Active Promethazine HCl 25 MG Oral Tablet (PHENERGAN)Indicati ons:Generalized osteoarthritis Take 1 Tab by mouth every 6 hours as needed for Nausea. 30 Tab 0 0 Active Klor-Con M20 20 MEQ Oral Tablet Extended Release (Potassium Chloride Annalisa ER)Indications:HTN, goal below 140/90 TAKE 1 TABLET BY MOUTH EVERY DAY 90 Tab 1 1 Active Ciprofloxacin HCl 500 MG Oral Tablet (Cipro) TAKE 1 TABLET BY MOUTH EVERY 12 HOURS FOR 10 DAYS 20 Tab 0 1 Active metroNIDAZOLE 500 MG Oral Tablet (Flagyl) TAKE 1 TAB BY MOUTH 3 TIMES A DAY FOR 10 DAYS. 30 Tab 0 1 Active metroNIDAZOLE 500 MG Oral Tablet (FLAGYL) TAKE 1 TAB BY MOUTH 3 TIMES A DAY FOR 10 DAYS. 30 Tab 0 0 11/02/19 21 Discontinued Ciprofloxacin HCl 500 MG Oral Tablet (CIPRO) TAKE 1 TABLET BY MOUTH EVERY 12 HOURS FOR 10 DAYS 20 Tab 0 0 11/02/19 21 Discontinued documented as of this encounter (statuses as of 11/02/2020) Active Problems Problem Noted Date Diabetes mellitus [...] as of this encounter (statuses as of 11/02/2020) Resolved Problems Problem Noted Date Resolved Date [...] Hypoxemia 10/08/2011 10/30/2015 Genetic Sleep Disorder Research Other*[id number] 07/25/2011 05/15/2016 Diverticulitis of colon 07/25/2011 01/06/20 [...] as of this encounter (statuses as of 11/02/2020) Immunizations Name Administration Dates Next Due Hepatitis [...] Telephone Encounter - Alex Pinto MD - 11/02/2020 8:07 AM EST Signed Prescriptions: Disp Refills Ciprofloxacin HCl 500 MG Oral Tablet (Cipr*20 Tab 0 Sig: TAKE 1 TABLET BY MOUTH EVERY 12 HOURS FOR 10 DAYS Authorizing Provider: ALEX PINTO metroNIDAZOLE 500 MG Oral Tablet (Flagyl) 30 Tab 0 Sig: TAKE 1 TAB BY MOUTH 3 TIMES A DAY FOR 10 DAYS. Authorizing Provider: ALEX PINTO * Telephone Encounter - Eliezer Bernard [facility] - 11/01/2020 3:50 PM EST Pending Prescriptions: Disp Refills Ciprofloxacin HCl 500 MG Oral Tablet [Phar*20 Tab 0 Sig: TAKE 1 TABLET BY MOUTH EVERY 12 HOURS FOR 10 DAYS metroNIDAZOLE 500 MG Oral Tablet [Pharmacy*30 Tab 0 Sig: TAKE 1 TAB BY MOUTH 3 TIMES A DAY FOR 10 DAYS. * Telephone Encounter - Eliezer Bernard RPh - 11/01/2020 3:50 PM EST Refill pharmacists currently not authorized to approve refills for this class of medication per refill protocol. Please approve if appropriate. Thanks, Eliezer Bernard, Ihsan.Ph. Clinical Pharmacist Telepharmacy [phone] 11/01/2020,3:50 PM Pending Prescriptions: Disp Refills Ciprofloxacin HCl 500 MG Oral Tablet [Phar*20 Tab 0 Sig: TAKE 1 TABLET BY MOUTH EVERY 12 HOURS FOR 10 DAYS metroNIDAZOLE 500 MG Oral Tablet [Pharmacy*30 Tab 0 Sig: TAKE 1 TAB BY MOUTH 3 TIMES A DAY FOR 10 DAYS. Last Office/Telemedicine Visit: 08/08/2020 Next Office Visit: 12/21/2020 Scheduled Provider(s): Alex Pinto MD If no future appointments scheduled, and last appointment is greater than a year ago, please schedule patient for a follow-up appointment Last date the medication was ordered: 10/03/20 Pharmacy: [id number] [id number] [facility] Is this request for a controlled substance?No Urine Drug Screen:No results found. However, due to the size of the patient record, not all encounters were searched. Please check Results Review for a complete set of results. Patient Phone Numbers Labs: Lab Results Component Value Date/Time CREAT 0.81 07/19/2020 CREAT 1.0 05/27/2020 04:51 PM POTASSIUM 4.0 05/27/2020 04:51 PM TSH 0.42 07/27/2018 11:32 AM LDLCALC 104.00 06/28/2020 LDLCALC 95 07/27/2018 11:32 AM LDLDIRECT 116 (A) 06/28/2020 LDLDIRECT 97 07/27/2018 11:32 AM ALT 15 05/27/2020 04:51 PM HGBA1C 6.0 (A) 08/10/2020 HGBA1C 6.6 (H) 08/26/2019 02:55 PM documented in this encounter Plan of Treatment Upcoming Encounters Date Type Specialty Care Team Description 12/21/2020 Office Visit Internal Medicine Alex Pinto MD [address] [place] [address] Health Maintenance Due Date Last Done Comments Zoster Vaccines (2 of 3) 08/31/2012 07/06/2012 CKD PHOS USE SMARTSET 83944 03/22/2020 03/22/2019 DIABETES-FOOT EXAM 10/19/2020 10/19/2019, 0 01/05/2019, 01/16/2018, Additional history exists DIABETES-URINE MICROALBUMIN EVERY 12 MONTHS 12/08/2020 12/08/2019, 10/30/2019, 07/09/2019, Additional history exists CKD GFR USE SMARTSET 89395 01/17/202107/19, 06/28/2020, 05/27/2020, Additional history exists DIABETES-HGBA1C EVERY 6 MONTHS 02/08/2021 08/10/2020, 06/28/2020, 03/10/2020, Additional history exists CKD HGB USE SMARTSET 31282 07/19/202107/19, 06/28/2020, 05/27/2020, Additional history exists DIABETES-EYE EXAM 08/07/2021 08/07/2020, [...] Documents on File Type Date Recorded 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
--- OUTSIDE RECORDS SUMMARY | 2023-06-18 03:18 | External Medical Summary | Summary of Care ---
Author Name Unknown Organization [place] [address] Care Team Providers Care Food Service Associate Name Role Phone Marcela Pinto MD Primary Care Provider + Reason for Visit * Reason Onset Date Comments Advice 11/09/2020 Encounter Details Date Type Department Care Team Description 11/09/2020 Telephone General Internal Medicine [facility] [address] [facility] [place] [address] Marcela Pinto MD [address] [facility] [place] [address] [phone] Advice Allergies Active Allergy Reactions Severity Noted Date Comments Valsartan 07/10/2010 Enalapril 05/21/2006 Escitalopram Oxalate Nausea/vomiting 10/11/2009 Nauseated Iodinated Diagnostic Agents Nausea/vomiting 05/2010 IV Contrast Iodine Hives 12/18/2009 IV Contrast Lisinopril 05/21/2006 Metoprolol Tartrate 11/18/2006 Made pulse low [place] Oil-Black Currant-Vit E 07/10/2010 Verapamil 03/21/2004 Bupropion Hcl 10/30/2009 Makes pt sick in the stomach documented as of this encounter (statuses as of 11/13/2020) Medications Medication Sig Dispensed Refills Start Date [...] 300 Each 1 01/05/2020 Active Glucose Blood ([employer] CONTOUR TEST) STRPIndications:Type 2 diabetes mellitus with hemoglobin A1c goal of less than 7.0% ([facility]) USE TO TEST BLOOD SUGAR 3 [...] :COPD, group B, 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 ([facility]) INHALE 1 PUFF BY MOUTH EVERY [...] A DAY 180 Cap 1 10/05/2020 Active HYDROcodone-Acetamin ophen 5-325 MG Oral TabletIndications:Ge neralized osteoarthritis Take 1 Tab by mouth every 6 hours as needed for Pain, Mild. 120 Tab 0 10/10/2020 Active Promethazine HCl 25 MG Oral Tablet (PHENERGAN)Indicatio ns:Generalized osteoarthritis Take 1 Tab by mouth every 6 hours as needed for Nausea. 30 Tab 0 10/10/2020 Active Klor-Con M20 20 MEQ Oral Tablet Extended Release (Potassium Chloride Annalisa ER)Indications:HTN, goal below 140/90 TAKE 1 TABLET BY MOUTH EVERY DAY 90 Tab 1 10/18/2020 Active Ciprofloxacin HCl 500 MG Oral Tablet (Cipro) TAKE 1 TABLET BY MOUTH EVERY 12 HOURS FOR 10 DAYS 20 Tab 0 11/02/2020 Active metroNIDAZOLE 500 MG Oral Tablet (Flagyl) TAKE 1 TAB BY MOUTH 3 TIMES A DAY FOR 10 DAYS. 30 Tab 0 11/02/2020 Active Furosemide 40 MG Oral Tablet (Lasix)Indications:E ssential hypertension with goal blood pressure less than 130/80 Take 1 Tab by mouth daily. 90 Tab 1 11/08/2020 Active documented as of this encounter (statuses as of 11/13/2020) Active Problems Problem Noted Date Diabetes mellitus [...] as of this encounter (statuses as of 11/13/2020) Resolved Problems Problem Noted Date Resolved Date [...] Hypoxemia 10/08/2011 10/30/2015 Genetic Sleep Disorder Research Other*[id number] 07/25/2011 05/15/2016 Diverticulitis of colon 07/25/2011 01/06/20 [...] as of this encounter (statuses as of 11/13/2020) Immunizations Name Administration Dates Next Due Hepatitis [...] Telephone Encounter - Renetta Gu LPN - 11/13/2020 12:49 PM EST Patient is aware and will comply. Thank you * Telephone Encounter - Marcela Pinto MD - 11/10/2020 4:27 PM EST There is no contraindication for COVID vaccine unless she has a history of anaphylaxis. * Telephone Encounter - Chantel Miranda LPN - 11/09/2020 1:50 PM EST Pt calling with question about Covid vaccination. She is inquiring due to all her Dx if it is alright for her to receive the vaccination. Please advise. documented in this encounter Plan of Treatment Upcoming Encounters Date Type Specialty Care Team Description 12/21/2020 Office Visit Internal Medicine Marcela Pinto MD [address] [place] [id number] [phone] Health Maintenance Due Date Last Done Comments Zoster Vaccines (2 of 3) 08/31/2012 07/06/2012 CKD PHOS USE SMARTSET 52109 03/22/2020 03/22/2019 DIABETES-FOOT EXAM 10/19/2020 10/19/2019, 0 01/05/2019, 01/16/2018, Additional history exists DIABETES-URINE MICROALBUMIN EVERY 12 MONTHS 12/08/2020 12/08/2019, 10/30/2019, 07/09/2019, Additional history exists CKD GFR USE SMARTSET 00210 01/17/202107/19, 06/28/2020, 05/27/2020, Additional history exists DIABETES-HGBA1C EVERY 6 MONTHS 02/08/2021 08/10/2020, 06/28/2020, 03/10/2020, Additional history exists CKD HGB USE SMARTSET 75274 07/19/202107/19, 06/28/2020, 05/27/2020, Additional history exists DIABETES-EYE [...] Documents on File Type Date Recorded 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
--- OUTSIDE RECORDS SUMMARY | 2023-06-18 03:18 | External Medical Summary | Summary of Care ---
Author Name Unknown Organization [place] [address] Care Team Providers Care Director Student Union Name Role Phone Alex Pinto MD Primary Care Provider + Reason for Visit * Reason Comments eRx-Medication Refill Encounter Details Date Type Department Care Team Description 10/03/2020 Refill General Internal Medicine [facility] [address] [place] [address] Alex Pinto MD [address] [place] [address] [phone] Ischemic colitis (HCC) Allergies Active Allergy Reactions Severity Noted Date Comments Valsartan 07/10/2010 Enalapril 05/21/2006 Escitalopram Oxalate Nausea/vomiting 10/11/2009 Nauseated Iodinated Diagnostic Agents Nausea/vomiting 05/2010 IV Contrast Iodine Hives 12/18/2009 IV Contrast Lisinopril 05/21/2006 Metoprolol Tartrate 11/18/2006 Made pulse low [place] Oil-Black Currant-Vit E 07/10/2010 Verapamil 03/21/2004 Bupropion Hcl 10/30/2009 Makes pt sick in the stomach documented as of this encounter (statuses as of 10/05/2020) Medications Medication Sig Dispensed Refills Start Date [...] 300 Each 1 0 Active Glucose Blood ([employer] CONTOUR TEST) STRPIndications:Typ e 2 diabetes mellitus with hemoglobin A1c goal of less than 7.0% ([facility]) USE TO TEST BLOOD SUGAR 3 [...] A DAY 12 g 3 0 Active Potassium Chloride Annalisa ER (KLOR-CON M20) 20 MEQ TBCRIndications:HTN , goal below 140/90 Take 1 Tab by mouth daily. 90 Tab 1 0 Active dicyclomine (BENTYL) 20 MG TabletIndications:C [...] by mouth. One tablet daily 0 Active promethazine (PHENERGAN) 25 MG Tablet Take 25 mg by mouth every 6 hours as needed for Nausea. 0 Active ondansetron ODT (ZOFRAN) [address] 8 mg on tongue every 8 hours as needed for Nausea. dissolve on tongue. 0 Active doxycycline 100 MG Tablet Take 100 mg by mouth 2 times a day. RESCUE KIT: Take for Colds. 0 Active Incruse Ellipta 62.5 MCG/INH Inhalation Aerosol Powder Breath ActivatedIndication s:COPD, group B, 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 (HCC) INHALE 1 PUFF BY MOUTH EVERY DAY 90 Each 3 0 Active methIMAzole 5 MG Oral Tablet (TAPAZOLE) Take 5 mg by mouth daily. 0 0 Active Zafirlukast 20 MG Oral Tablet (ACCOLATE)Indicatio ns:Asthma with severity to be determined TAKE 1 TABLET BY MOUTH EVERY DAY 90 Tab 3 0 Active HYDROcodone-Acetami nophen 5-325 MG Oral TabletIndications:G eneralized osteoarthritis Take 1 Tab by mouth every 6 hours as needed for Pain, Mild. 120 Tab 0 0 Active Atorvastatin Calcium 40 MG Oral Tablet (LIPITOR)Indication s:Hyperlipidemia with target LDL less than 100 TAKE 1 TABLET BY MOUTH EVERY DAY 90 Tab 1 0 Active metroNIDAZOLE 500 MG Oral Tablet (FLAGYL) TAKE 1 TAB BY MOUTH 3 TIMES A DAY FOR 10 DAYS. 30 Tab 0 0 Active Ciprofloxacin HCl 500 MG Oral Tablet (CIPRO) TAKE 1 TABLET BY MOUTH EVERY 12 HOURS FOR 10 DAYS 20 Tab 0 0 Active Omeprazole 20 MG Oral Capsule Delayed Release (PriLOSEC)Indicatio ns:Ischemic colitis (HCC) TAKE 1 CAPSULE BY MOUTH TWICE A DAY 180 Cap 1 0 Active omeprazole (PRILOSEC) 20 MG CPDRIndications:Isc hemic colitis (HCC) TAKE 1 CAPSULE BY MOUTH TWICE A DAY 180 Cap 1 0 10/05/20 20 Discontinued documented as of this encounter (statuses as of 10/05/2020) Active Problems Problem Noted Date Diabetes mellitus [...] as of this encounter (statuses as of 10/05/2020) Resolved Problems Problem Noted Date Resolved Date [...] Hypoxemia 10/08/2011 10/30/2015 Genetic Sleep Disorder Research Other*[id number] 07/25/2011 05/15/2016 Diverticulitis of colon 07/25/2011 01/06/20 [...] as of this encounter (statuses as of 10/05/2020) Immunizations Name Administration Dates Next Due Hepatitis [...] encounter Miscellaneous Notes * Telephone Encounter - Shana Monahan RPh - 10/05/2020 2:11 PM EST Signed Prescriptions: Disp Refills Omeprazole 20 MG Oral Capsule Delayed Rele*180 Cap1 Sig: TAKE 1CAPSULE BY MOUTH TWICE A DAYAuthorizing Provider: ALEX PINTO User: SHANA MONAHAN documented in this encounter Plan of Treatment Upcoming Encounters Date Type Specialty Care Team Description 12/21/2020 Office Visit Internal Medicine Alex Pinto MD [address] [facility], [place] [address] [phone] Health Maintenance Due Date Last Done Comments Zoster Vaccines (2 of 3) 08/31/2012 07/06/2012 CKD PHOS USE SMARTSET 99531 03/22/2020 03/22/2019 DIABETES-FOOT EXAM 10/19/2020 10/19/2019, 0 01/05/2019, 01/16/2018, Additional history exists DIABETES-URINE MICROALBUMIN EVERY 12 MONTHS 12/08/2020 12/08/2019, 10/30/2019, 07/09/2019, Additional history exists CKD GFR USE SMARTSET 64110 01/17/202107/19, 06/28/2020, 05/27/2020, Additional history exists DIABETES-HGBA1C EVERY 6 MONTHS 02/08/2021 08/10/2020, 06/28/2020, 03/10/2020, Additional history exists CKD HGB USE SMARTSET 23792 07/19/202107/19, 06/28/2020, 05/27/2020, Additional history exists DIABETES-EYE [...] Documents on File Type Date Recorded Patient Paper 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
--- OUTSIDE RECORDS SUMMARY | 2023-06-18 03:18 | External Medical Summary | Summary of Care ---
Author Name Unknown Organization [place] [address] Care Team Providers Care Dye Worker Name Role Phone Alex Pinto MD Primary Care Provider + Reason for Visit * Reason Comments eRx-Medication Refill Encounter Details Date Type Department Care Team Description 11/21/2020 Refill General Internal Medicine [facility] [address] [place] [address] Alex Pinot MD [address] [place] [address] [phone] Allergies Active Allergy Reactions Severity Noted Date Comments Valsartan 07/10/2010 Enalapril 05/21/2006 Escitalopram Oxalate Nausea/vomiting 10/11/2009 Nauseated Iodinated Diagnostic Agents Nausea/vomiting 05/2010 IV Contrast Iodine Hives 12/18/2009 IV Contrast Lisinopril 05/21/2006 Metoprolol Tartrate 11/18/2006 Made pulse low [place] Oil-Black Currant-Vit E 07/10/2010 Verapamil 03/21/2004 Bupropion Hcl 10/30/2009 Makes pt sick in the stomach documented as of this encounter (statuses as of 11/23/2020) Medications Medication Sig Dispensed Refills Start Date [...] 300 Each 1 0 Active Glucose Blood ([employer] CONTOUR TEST) STRPIndications:Typ e 2 diabetes mellitus [...] s:COPD, group B, 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 ([facility]) INHALE 1 PUFF BY MOUTH [...] 10 DAYS 20 Tab 0 1 Active Ciprofloxacin HCl 500 MG Oral Tablet (Cipro) TAKE 1 TABLET BY MOUTH EVERY 12 HOURS FOR 10 DAYS 20 Tab 0 1 11/23/19 21 Discontinued metroNIDAZOLE 500 MG Oral Tablet (Flagyl) TAKE 1 TAB BY MOUTH 3 TIMES A DAY FOR 10 DAYS. 30 Tab 0 1 11/23/19 21 Discontinued documented as of this encounter (statuses as of 11/23/2020) Active Problems Problem Noted Date Diabetes mellitus [...] as of this encounter (statuses as of 11/23/2020) Resolved Problems Problem Noted Date Resolved Date [...] Hypoxemia 10/08/2011 10/30/2015 Genetic Sleep Disorder Research Other*[id number] 07/25/2011 05/15/2016 Diverticulitis of colon 07/25/2011 01/06/20 [...] as of this encounter (statuses as of 11/23/2020) Immunizations Name Administration Dates Next Due Hepatitis [...] Telephone Encounter - Alex Pinto MD - 11/23/2020 3:15 PM EST Signed Prescriptions: Disp Refills metroNIDAZOLE 500 MG Oral Tablet (Flagyl) 30 Tab 0 Sig: TAKE 1 TAB BY MOUTH 3 TIMES A DAY FOR 10 DAYS. Authorizing Provider: ALEX PINTO Ciprofloxacin HCl 500 MG Oral Tablet (Cipr*20 Tab 0 Sig: TAKE 1 TABLET BY MOUTH EVERY 12 HOURS FOR 10 DAYS Authorizing Provider: ALEX PINTO * Telephone Encounter - Silver Bansal CPhT - 11/22/2020 6:50 PM EST Pending Prescriptions: Disp Refills metroNIDAZOLE 500 MG Oral Tablet [Pharmacy*30 Tab 0 Sig: TAKE 1 TAB BY MOUTH 3 TIMES A DAY FOR 10 DAYS. Ciprofloxacin HCl 500 MG Oral Tablet [Phar*20 Tab 0 Sig: TAKE 1 TABLET BY MOUTH EVERY 12 HOURS FOR 10 DAYS * Telephone Encounter - Janny Juan [facility] - 11/22/2020 6:50 PM EST Pending Prescriptions: Disp Refills metroNIDAZOLE 500 MG Oral Tablet (Flagyl)*30 Tab 0 Sig: TAKE 1 TAB BY MOUTH 3 TIMES A DAY FOR 10 DAYS. Ciprofloxacin HCl 500 MG Oral Tablet (Cip*20 Tab 0 Sig: TAKE 1 TABLET BY MOUTH EVERY 12 HOURS FOR 10 DAYS * Telephone Encounter - Janny Juan [facility] - 11/22/2020 6:49 PM EST Per chart review patient uses these medications for diverticulitis flares. Pharmacy is requesting refills. Please advise and approve if appropriate. Thank You Janny Juan, PharmD Staff Pharmacist Refill Call Center 11/22/2020, 6:50 PM * Telephone Encounter - Janny Juan RP - 11/22/2020 6:49 PM EST Pending Prescriptions: Disp Refills metroNIDAZOLE 500 MG Oral Tablet (Flagyl)*30 Tab 0 Sig: TAKE 1 TAB BY MOUTH 3 TIMES A DAY FOR 10 DAYS. Ciprofloxacin HCl 500 MG Oral Tablet (Cip*20 Tab 0 Sig: TAKE 1 TABLET BY MOUTH EVERY 12 HOURS FOR 10 DAYS Last Office/Telemedicine Visit: 08/08/2020 Next Office Visit: 12/21/2020 Scheduled Provider(s): Alex Pinto MD If no future appointments scheduled, and last appointment is greater than a year ago, please schedule patient for a follow-up appointment Last date the medication was ordered: 11/02/20 Pharmacy: [facility] [address] [place] [address] Is this request for a controlled substance?No [...] 07/19/2020 CREAT 1.0 05/27/2020 04:51 PM POTASSIUM 4.4 07/19/2020 POTASSIUM 4.0 05/27/2020 04:51 PM TSH 0.241 (A) 06/28/2020 TSH 0.42 07/27/2018 11:32 AM LDLCALC 104.00 06/28/2020 LDLCALC 95 07/27/2018 11:32 AM LDLDIRECT 116 (A) 06/28/2020 LDLDIRECT 97 07/27/2018 11:32 AM ALT 15 05/27/2020 04:51 PM HGBA1C 6.0 (A) 08/10/2020 HGBA1C 6.6 (H) 08/26/2019 02:55 PM * Telephone Encounter - Silver Bansal CPhT - 11/22/2020 6:43 PM EST These medications appear to have been prescribed previously for an acute reason. Please approve if these refills are appropriate and/or forward to the appropriate provider. Thank you, Lee Bansal (Hanny) Stitch Bonding Machine Tender [employer] [facility] Call [facility] 11/22/2020, 6:43 PM documented in this encounter Plan of Treatment Upcoming Encounters Date Type Specialty Care Team Description 12/21/2020 Office Visit Internal Medicine Alex Pinto MD [address] [facility], [place] [id number] Health Maintenance Due Date Last Done Comments Zoster Vaccines (2 of 3) 08/31/2012 07/06/2012 CKD PHOS USE SMARTSET 45224 03/22/2020 03/22/2019 DIABETES-FOOT EXAM 10/19/2020 10/19/2019, 0 01/05/2019, 01/16/2018, Additional history exists DIABETES-URINE MICROALBUMIN EVERY 12 MONTHS 12/08/2020 12/08/2019, 10/30/2019, 07/09/2019, Additional history exists CKD GFR USE SMARTSET 80308 01/17/202107/19, 06/28/2020, 05/27/2020, Additional history exists DIABETES-HGBA1C EVERY 6 MONTHS 02/08/2021 08/10/2020, 06/28/2020, 03/10/2020, Additional history exists CKD HGB USE SMARTSET 35542 07/19/202107/19, 06/28/2020, 05/27/2020, Additional history exists DIABETES-EYE [...] Documents on File Type Date Recorded 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
--- OUTSIDE RECORDS SUMMARY | 2023-06-18 03:18 | External Medical Summary | Summary of Care ---
Author Name Unknown Organization [place] [address] Care Team Providers Care Machine Zipper Trimmer Name Role Phone Alex Pinto MD Primary Care Provider + Reason for Visit * Reason Comments eRx-Medication Refill Encounter Details Date Type Department Care Team Description 11/07/2020 Refill General Internal Medicine [facility] [address] [facility] [place] [address] Alex Pinto MD [address] [place], [place] [id number] Essential hypertension with goal blood pressure less than 130/80 Allergies Active Allergy Reactions Severity Noted Date Comments Valsartan 07/10/2010 Enalapril 05/21/2006 Escitalopram Oxalate Nausea/vomiting 10/11/2009 Nauseated Iodinated Diagnostic Agents Nausea/vomiting 05/2010 IV Contrast Iodine Hives 12/18/2009 IV Contrast Lisinopril 05/21/2006 Metoprolol Tartrate 11/18/2006 Made pulse low [place] Oil-Black Currant-Vit E 07/10/2010 Verapamil 03/21/2004 Bupropion Hcl 10/30/2009 Makes pt sick in the stomach documented as of this encounter (statuses as of 11/08/2020) Medications Medication Sig Dispensed Refills Start Date [...] 300 Each 1 0 Active Glucose Blood ([employer] CONTOUR TEST) STRPIndications:Typ e 2 diabetes mellitus with hemoglobin A1c goal of less than 7.0% ([facility]) USE TO TEST BLOOD SUGAR 3 TIMES A DAY FOR DIAGNOSIS CODE OF E11.9 300 Strip 1 0 Active Blood Glucose Monitoring Suppl (CONTOUR MONITOR) w/Device KIT USE TO TEST BLOOD SUGAR 3 TIMES A DAY FOR DIAGNOSIS CODE OF E11.9 1 Kit 0 0 Active COMBIVENT RESPIMAT 20-100 MCG/ACT InhalerIndications: Asthma with severity to be determined,COPD, moderate ([facility] [...] s:COPD, group B, 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 ([facility]) INHALE 1 PUFF BY [...] 10 DAYS. 30 Tab 0 1 Active Furosemide 40 MG Oral Tablet (Lasix)Indications: Essential hypertension with goal blood pressure less than 130/80 Take 1 Tab by mouth daily. 90 Tab 1 1 Active furosemide (LASIX) 40 MG TabletIndications:E ssential hypertension with goal blood pressure less than 130/80 TAKE 2 TABLETS BY MOUTH TWICE A DAY. TAKE BEFORE A MEAL 360 Tab 1 0 11/08/19 21 Discontinued documented as of this encounter (statuses as of 11/08/2020) Active Problems Problem Noted Date Diabetes mellitus [...] as of this encounter (statuses as of 11/08/2020) Resolved Problems Problem Noted Date Resolved Date [...] Hypoxemia 10/08/2011 10/30/2015 Genetic Sleep Disorder Research Other*[id number] 07/25/2011 05/15/2016 Diverticulitis of colon 07/25/2011 01/06/20 [...] as of this encounter (statuses as of 11/08/2020) Immunizations Name Administration Dates Next Due Hepatitis [...] Telephone Encounter - Alex Pinto MD - 11/08/2020 2:33 PM EST Signed Prescriptions: Disp Refills Furosemide 40 MG Oral Tablet (Lasix) 90 Tab 1 Sig: Take 1 Tab by mouth daily. Authorizing Provider: ALEX PINTO * Telephone Encounter - Butch Dawson [facility] - 11/08/2020 2:15 PM EST Pending Prescriptions: Disp Refills Furosemide 40 MG Oral Tablet (Lasix) [Pha*90 Tab 1 Sig: Take 1 Tab by mouth daily. * Telephone Encounter - Butch Dawson [facility] - 11/08/2020 2:09 PM EST Rx pended at dose reported by pt in chart, please approve if appropriate. Pending Prescriptions: Disp Refills Furosemide 40 MG Oral Tablet (Lasix) [Pha*90 Tab 1 Sig: Take 1 Tab by mouth daily. Last Office/Telemedicine Visit: 08/08/2020 Next Office Visit: 12/21/2020 Scheduled Provider(s): Alex Pinto MD If no future appointments scheduled, and last appointment is greater than a year ago, please schedule patient for a follow-up appointment Last date the medication was ordered: historical Pharmacy: [facility] [id number] [id number] [facility] Is this request for a controlled substance?No [...] Visit Internal Medicine Alex Pinto MD [address] [place] [address] Health Maintenance Due Date Last Done Comments Zoster Vaccines (2 of 3) 08/31/2012 07/06/2012 CKD PHOS USE SMARTSET 68523 03/22/2020 03/22/2019 DIABETES-FOOT EXAM 10/19/2020 10/19/2019, 0 01/05/2019, 01/16/2018, Additional history exists DIABETES-URINE MICROALBUMIN EVERY 12 MONTHS 12/08/2020 12/08/2019, 10/30/2019, 07/09/2019, Additional history exists CKD GFR USE SMARTSET 01096 01/17/202107/19, 06/28/2020, 05/27/2020, Additional history exists DIABETES-HGBA1C EVERY 6 MONTHS 02/08/2021 08/10/2020, 06/28/2020, 03/10/2020, Additional history exists CKD HGB USE SMARTSET 73700 07/19/202107/19, 06/28/2020, 05/27/2020, Additional history exists DIABETES-EYE [...] as of this encounter Visit Diagnoses Diagnosis Essential hypertension with goal blood pressure less than 130/80 documented in this encounter Advance Directives Documents on File Type Date Recorded 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
--- OUTSIDE RECORDS SUMMARY | 2023-06-18 03:18 | External Medical Summary | Summary of Care ---
Author Name Unknown Organization [place] [address] Care Team Providers Care Steak Tenderizer Machine Name Role Phone Alex Pinto MD Primary Care Provider + Reason for Visit * Reason Comments eRx-Medication Refill Encounter Details Date Type Department Care Team Description 10/17/2020 Refill General Internal Medicine [facility] [address] [place] [address] Alex Pinto MD [address] [place], [place] [phone] HTN, goal below 140/90 Allergies Active Allergy Reactions Severity Noted Date Comments Valsartan 07/10/2010 Enalapril 05/21/2006 Escitalopram Oxalate Nausea/vomiting 10/11/2009 Nauseated Iodinated Diagnostic Agents Nausea/vomiting 05/2010 IV Contrast Iodine Hives 12/18/2009 IV Contrast Lisinopril 05/21/2006 Metoprolol Tartrate 11/18/2006 Made pulse low [place] Oil-Black Currant-Vit E 07/10/2010 Verapamil 03/21/2004 Bupropion Hcl 10/30/2009 Makes pt sick in the stomach documented as of this encounter (statuses as of 10/18/2020) Medications Medication Sig Dispensed Refills Start Date [...] 300 Each 1 0 Active Glucose Blood ([employer] CONTOUR TEST) STRPIndications:Typ e 2 diabetes mellitus with hemoglobin A1c goal of less than 7.0% ([facility]) USE TO TEST BLOOD SUGAR 3 TIMES A DAY FOR DIAGNOSIS CODE OF E11.9 300 Strip 1 0 Active Blood Glucose Monitoring Suppl (CONTOUR MONITOR) w/Device KIT USE TO TEST BLOOD SUGAR 3 TIMES A DAY FOR DIAGNOSIS CODE OF E11.9 1 Kit 0 0 Active COMBIVENT RESPIMAT 20-100 MCG/ACT InhalerIndications: Asthma with severity to be determined,COPD, moderate ([facility] [...] s:COPD, group B, 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 ([facility]) INHALE 1 PUFF BY MOUTH [...] EVERY DAY 90 Tab 1 1 Active Potassium Chloride Annalisa ER (KLOR-CON M20) 20 MEQ TBCRIndications:HTN , goal below 140/90 Take 1 Tab by mouth daily. 90 Tab 1 0 10/18/19 21 Discontinued documented as of this encounter (statuses as of 10/18/2020) Active Problems Problem Noted Date Diabetes mellitus [...] as of this encounter (statuses as of 10/18/2020) Resolved Problems Problem Noted Date Resolved Date [...] Hypoxemia 10/08/2011 10/30/2015 Genetic Sleep Disorder Research Other*[id number] 07/25/2011 05/15/2016 Diverticulitis of colon 07/25/2011 01/06/20 [...] as of this encounter (statuses as of 10/18/2020) Immunizations Name Administration Dates Next Due Hepatitis [...] Telephone Encounter - Gabe Quintana RPh - 10/18/2020 11:15 AM EST Signed Prescriptions: Disp Refills Klor-Con M20 20 MEQ Oral Tablet Extended R*90 Tab 1 Sig: TAKE 1 TABLET BY MOUTH EVERY DAYAuthorizing Provider: ALEX PINTO User: GABE QUINTANA S documented in this encounter Plan of Treatment Upcoming Encounters Date Type Specialty Care Team Description 12/21/2020 Office Visit Internal Medicine Alex Pinto MD [address] [place] [address] [phone] Health Maintenance Due Date Last Done Comments Zoster Vaccines (2 of 3) 08/31/2012 07/06/2012 CKD PHOS USE SMARTSET 65202 03/22/2020 03/22/2019 DIABETES-FOOT EXAM 10/19/2020 10/19/2019, 0 01/05/2019, 01/16/2018, Additional history exists DIABETES-URINE MICROALBUMIN EVERY 12 MONTHS 12/08/2020 12/08/2019, 10/30/2019, 07/09/2019, Additional history exists CKD GFR USE SMARTSET 27996 01/17/202107/19, 06/28/2020, 05/27/2020, Additional history exists DIABETES-HGBA1C EVERY 6 MONTHS 02/08/2021 08/10/2020, 06/28/2020, 03/10/2020, Additional history exists CKD HGB USE SMARTSET 56800 07/19/202107/19, 06/28/2020, 05/27/2020, Additional history exists DIABETES-EYE [...] Documents on File Type Date Recorded Patient Milieu Manager 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
--- OUTSIDE RECORDS SUMMARY | 2023-06-18 03:18 | External Medical Summary | Summary of Care ---
Author Name Unknown Organization [place] [address] Care Team Providers Care Education Nurse Name Role Phone Alex Pinto MD Primary Care Provider + Reason for Visit * Reason Onset Date Comments Medication Refill 2020 Encounter Details Date Type Department Care Team Description 2020 Refill Internal Medicine [address] [place] [address] Aelx Pinto MD [address] [place] [address] [id number] GENERAL OSTEOARTHROSIS Allergies Active Allergy Reactions Severity Noted Date Comments Valsartan 07/10/2010 Enalapril 05/21/2006 Escitalopram Oxalate Nausea/vomiting 10/11/2009 Nauseated Iodinated Diagnostic Agents Nausea/vomiting 05/2010 IV Contrast Iodine Hives 12/18/2009 IV Contrast Lisinopril 05/21/2006 Metoprolol Tartrate 11/18/2006 Made pulse low [place] Oil-Black Currant-Vit E 07/10/2010 Verapamil 03/21/2004 Bupropion Hcl 10/30/2009 Makes pt sick in the stomach documented as of this encounter (statuses as of 2020) Medications Medication Sig Dispensed Refills Start Date [...] 300 Each 1 01/05/2020 Active Glucose Blood ([employer] CONTOUR TEST) STRPIndications:Typ e 2 diabetes mellitus [...] 0 01/05/2020 Active COMBIVENT RESPIMAT 20-100 MCG/ACT InhalerIndications: Asthma with severity to be determined,COPD, moderate ([facility]) TAKE 1 PUFF BY MOUTH 4 TIMES A DAY 12 g 3 01/14/2020 Active dicyclomine (BENTYL) 20 MG TabletIndications:C hronic [...] s:COPD, group B, 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 ([facility]) INHALE 1 PUFF BY MOUTH EVERY [...] 10 DAYS 20 Tab 0 11/23/2020 Active HYDROcodone-Acetami nophen 5-325 MG Oral TabletIndications:G eneralized osteoarthritis Take 1 Tab by mouth every 6 hours as needed for Pain, Mild. 120 Tab 0 2020 Active HYDROcodone-Acetami nophen 5-325 MG Oral TabletIndications:G eneralized osteoarthritis Take 1 Tab by mouth every 6 hours as needed for Pain, Mild. 120 Tab 0 10/10/2020 1 Discontinu ed(Refill) documented as of this encounter (statuses as of 2020) Active Problems Problem Noted Date Diabetes mellitus [...] as of this encounter (statuses as of 2020) Resolved Problems Problem Noted Date Resolved Date [...] Hypoxemia 10/08/2011 10/30/2015 Genetic Sleep Disorder Research Other*[id number] 07/25/2011 05/15/2016 Diverticulitis of colon 07/25/2011 01/06/20 [...] as of this encounter (statuses as of 2020) Immunizations Name Administration Dates Next Due Hepatitis [...] Telephone Encounter - Alex Pinto MD - 2020 12:18 PM EST Signed Prescriptions: Disp Refills HYDROcodone-Acetaminophen 5-325 MG Oral Ta*120 Tab0 Sig: Take 1 Tab by mouth every 6 hours as needed for Pain, Mild.Authorizing Provider: ALEX PINTO------ * Telephone Encounter - Trinidad Dempsey LPN - 2020 11:02 AM EST Pt calling and is requesting a refill for hydrocodone Pending Prescriptions: Disp Refills HYDROcodone-Acetaminophen 5-325 MG Oral T*120 Tab0 Sig: Take 1 Tab by mouth every 6 hours as needed for Pain, Mild. 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 Allergic rhinitis J30.9 Nocturnal hypoxia G47.34 Sleep apnea, obstructive G47.33 ACEI/ARB contraindicated HA3130 HTN, goal below 140/90 I10 Hyperlipidemia with target LDL less than 100 E78.5 Controlled substance agreement signed Z79.899 Type 2 diabetes mellitus with hemoglobin A1c goal of less than 7.5% ([facility]) E11.9 Hypercalcemia E83.52 Elevated plasma metanephrines R79.89 Irritable bowel syndrome with constipation K58.1 Ischemic colitis ([facility]) K55.9 HECTOR (generalized anxiety disorder) F41.1 COPD, group B, 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 ([facility]) J44.9 Morbid obesity with BMI of 40.0-44.9, adult ([facility]) E66.01, Z68.41 Gastro-esophageal reflux disease without esophagitis K21.9 Diabetes mellitus with stage 3 chronic kidney disease ([facility]) E11.22, N18.30 Labs: Lab Results Component Value Date/Time CREATININE - [facility] 1.0 05/27/2020 04:51 PM CREATININE TIM 221 08/26/2019 02:57 PM CREATININE, 24 HOUR URINE - [facility] 1.106 02/26/2017 09:11 AM CREATININE, RANDOM URINE - [facility] 128 07/09/2019 01:57 PM CREATININE-OUTSIDE LAB 0.81 07/19/2020 Lab Results Component Value Date/Time POTASSIUM - [facility] 4.0 05/27/2020 04:51 PM POTASSIUM-OUTSIDE LAB 4.4 07/19/2020 Lab Results Component Value Date/Time TSH - [facility] 0.42 07/27/2018 11:32 AM TSH - OUTSIDE LAB 0.241 (A) 06/28/2020 Lab Results Component Value Date/Time LDL (CALCULATED)-[facility]IDE [facility] 104.00 06/28/2020 LDL (CALCULATED)-[facility]IDE LAB 88.20 03/10/2020 LDL (DIRECT MEASURE)-OUTSIDE LAB 116 (A) 06/28/2020 LDL (DIRECT MEASURE)-[facility] 86 03/10/2020 LDL CHOLESTEROL (CALCULATED) - [facility] 95 07/27/2018 [...] Team Description 12/21/2020 Office Visit Internal Medicine Alxe Pinto MD [address] [place] [address] Health Maintenance Due Date Last Done Comments Zoster Vaccines (2 of 3) 08/31/2012 07/06/2012 CKD PHOS USE SMARTSET 96833 03/22/2020 03/22/2019 DIABETES-FOOT EXAM 10/19/2020 10/19/2019, 0 01/05/2019, 01/16/2018, Additional history exists DIABETES-URINE MICROALBUMIN EVERY 12 MONTHS 12/08/2020 12/08/2019, 10/30/2019, 07/09/2019, Additional history exists CKD GFR USE SMARTSET 76831 01/17/202107/19, 06/28/2020, 05/27/2020, Additional history exists DIABETES-HGBA1C EVERY 6 MONTHS 02/08/2021 08/10/2020, 06/28/2020, 03/10/2020, Additional history exists CKD HGB USE SMARTSET 31072 07/19/202107/19, 06/28/2020, 05/27/2020, Additional history exists DIABETES-EYE [...] Documents on File Type Date Recorded Patient [place] 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
--- OUTSIDE RECORDS SUMMARY | 2023-06-18 03:18 | External Medical Summary | Summary of Care ---
Author Name Unknown Organization [place] [address] Care Team Providers Care Melt Helper Name Role Phone Alex Pinto MD Primary Care Provider + Reason for Visit * Reason Onset Date Comments Medication Refill 10/10/2020 Encounter Details Date Type Department Care Team Description 10/10/2020 Refill General Internal Medicine [facility] [address] [place], [place] [id number] Alex Pinto MD [address] [place], [place] [id number] GENERAL OSTEOARTHROSIS Allergies Active Allergy Reactions Severity Noted Date Comments Valsartan 07/10/2010 Enalapril 05/21/2006 Escitalopram Oxalate Nausea/vomiting 10/11/2009 Nauseated Iodinated Diagnostic Agents Nausea/vomiting 05/2010 IV Contrast Iodine Hives 12/18/2009 IV Contrast Lisinopril 05/21/2006 Metoprolol Tartrate 11/18/2006 Made pulse low [place] Oil-Black Currant-Vit E 07/10/2010 Verapamil 03/21/2004 Bupropion Hcl 10/30/2009 Makes pt sick in the stomach documented as of this encounter (statuses as of 10/10/2020) Medications Medication Sig Dispensed Refills Start Date [...] 300 Each 1 01/05/2020 Active Glucose Blood ([employer] CONTOUR TEST) STRPIndications:Typ e 2 diabetes mellitus [...] be determined,COPD, moderate ([facility]) TAKE 1 PUFF BY MOUTH 4 TIMES A DAY 12 g 3 01/14/2020 Active Potassium Chloride Annalisa ER (KLOR-CON M20) 20 MEQ TBCRIndications:HTN , goal below 140/90 Take 1 Tab by mouth daily. 90 Tab 1 04/27/2020 Active dicyclomine (BENTYL) 20 MG TabletIndications:C hronic constipation Take 1 Tab by mouth daily. 90 Tab 2 04/27/2020 Active furosemide (LASIX) 40 MG TabletIndications:E ssential hypertension with goal blood pressure less than 130/80 TAKE 2 TABLETS BY MOUTH TWICE A DAY. TAKE BEFORE A MEAL 360 Tab 1 05/13/2020 Active Additional Information Patient taking differently: 40 [...] s:COPD, group B, 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 ([facility] [...] EVERY DAY 90 Tab 1 08/22/2020 Active metroNIDAZOLE 500 MG Oral Tablet (FLAGYL) TAKE 1 TAB BY MOUTH 3 TIMES A DAY FOR 10 DAYS. 30 Tab 0 10/03/2020 Active Ciprofloxacin HCl 500 MG Oral Tablet (CIPRO) TAKE 1 TABLET BY MOUTH EVERY 12 HOURS FOR 10 DAYS 20 Tab 0 10/03/2020 Active Omeprazole 20 MG Oral Capsule Delayed Release (PriLOSEC)Indicatio ns:Ischemic colitis (HCC) TAKE 1 CAPSULE BY MOUTH TWICE A DAY 180 Cap 1 10/05/2020 Active HYDROcodone-Acetami nophen 5-325 MG Oral TabletIndications:G eneralized osteoarthritis Take 1 Tab by mouth every 6 hours as needed for Pain, Mild. 120 Tab 0 10/10/2020 Active Promethazine HCl 25 MG Oral Tablet (PHENERGAN)Indicati ons:Generalized osteoarthritis Take 1 Tab by mouth every 6 hours as needed for Nausea. 30 Tab 0 10/10/2020 Active promethazine (PHENERGAN) 25 MG Tablet Take 25 mg by mouth every 6 hours as needed for Nausea. 0 0 Discontinu ed(Refill) HYDROcodone-Acetami nophen 5-325 MG Oral TabletIndications:G eneralized osteoarthritis Take 1 Tab by mouth every 6 hours as needed for Pain, Mild. 120 Tab 0 08/15/2020 0 Discontinu ed(Refill) documented as of this encounter (statuses as of 10/10/2020) Active Problems Problem Noted Date Diabetes mellitus [...] as of this encounter (statuses as of 10/10/2020) Resolved Problems Problem Noted Date Resolved Date [...] Hypoxemia 10/08/2011 10/30/2015 Genetic Sleep Disorder Research Other*[id number] 07/25/2011 05/15/2016 Diverticulitis of colon 07/25/2011 01/06/20 [...] as of this encounter (statuses as of 10/10/2020) Immunizations Name Administration Dates Next Due Hepatitis [...] Telephone Encounter - Alex Pinto MD - 10/10/2020 3:49 PM EST Signed Prescriptions: Disp Refills HYDROcodone-Acetaminophen 5-325 MG Oral Ta*120 Tab0 Sig: Take 1Tab by mouth every 6 hours as needed for Pain, Mild.Authorizing Provider: ALEX PINTO Promethazine HCl 25 MG Oral Tablet (PHENER*30 Tab 0 Sig: Take 1 Tab by mouth every 6 hours as needed for Nausea.Authorizing Provider: ALEX PINTO * Telephone Encounter - Chantel Miranda LPN - 10/10/2020 9:48 AM EST Pt calling to get refill on her hydrocodone and her nausea meds. Pending Prescriptions: Disp Refills HYDROcodone-Acetaminophen 5-325 MG Oral T*120 Tab0 Sig: Take 1 Tab by mouth every 6 hours as needed for Pain, Mild. Promethazine HCl 25 MG Oral Tablet (PHENE*30 Tab 0 Sig: Take 1 Tab by mouth every 6 hours as needed for Nausea. 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 Allergic rhinitis J30.9 Nocturnal hypoxia G47.34 Sleep apnea, obstructive G47.33 ACEI/ARB contraindicated [id number] HTN, goal below 140/90 I10 Hyperlipidemia with target LDL less than 100 E78.5 Controlled substance agreement signed Z79.899 Type 2 diabetes mellitus with hemoglobin A1c goal of less than 7.5% ([facility]) E11.9 Hypercalcemia E83.52 Elevated plasma metanephrines R79.89 Irritable bowel syndrome with constipation K58.1 Ischemic colitis ([facility]) K55.9 HECTOR (generalized anxiety disorder) F41.1 COPD, group B, 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 ([facility]) J44.9 Morbid obesity with BMI of 40.0-44.9, adult ([facility]) E66.01, Z68.41 Gastro-esophageal reflux disease without esophagitis K21.9 Diabetes mellitus with stage 3 chronic kidney disease ([facility]) E11.22, N18.30 Labs: CREATININE-OUTSIDE LAB(MG/DL) Jessica Dt/Tm Resulted Value Status 07/19/20 07/20/20 0.81 FINAL POTASSIUM-OUTSIDE LAB(MMOL/L) Jessica Dt/Tm Resulted Value Status 07/19/20 07/20/20 4.4 FINAL TSH - OUTSIDE LAB(MCIU/ML) Jessica Dt/Tm Resulted Value Status 06/28/20 06/29/20 0.241* FINAL LDL (CALCULATED)-OUTSIDE LAB(MG/DL) Jessica Dt/Tm Resulted Value Status 06/28/20 06/29/20 104.00 FINAL LDL (DIRECT MEASURE)-OUTSIDE LAB(MG/DL) Jessica Dt/Tm Resulted Value Status 06/28/20 06/29/20 116* FINAL ALT(U/L) Jessica Dt/Tm Resulted Value Status 05/27/20 4:51P 05/27/20 15 FINAL Hemoglobin AIC Results: HEMOGLOBIN, B6S-HFUMNJV LAB(%) Jessica Dt/Tm Resulted Value Status 08/10/20 08/11/20 6.0* FINAL 06/28/20 06/29/20 6.0* FINAL 03/10/20 03/10/20 7.0* FINAL documented in this encounter Plan of Treatment Upcoming Encounters Date Type Specialty Care Team Description 12/21/2020 Office Visit Internal Medicine Alex Pinto MD [address] [place] [address] Health Maintenance Due Date Last Done Comments Zoster Vaccines (2 of 3) 08/31/2012 07/06/2012 CKD PHOS USE SMARTSET 04498 03/22/2020 03/22/2019 DIABETES-FOOT EXAM 10/19/2020 10/19/2019, 0 01/05/2019, 01/16/2018, Additional history exists DIABETES-URINE MICROALBUMIN EVERY 12 MONTHS 12/08/2020 12/08/2019, 10/30/2019, 07/09/2019, Additional history exists CKD GFR USE SMARTSET 62070 01/17/202107/19, 06/28/2020, 05/27/2020, Additional history exists DIABETES-HGBA1C EVERY 6 MONTHS 02/08/2021 08/10/2020, 06/28/2020, 03/10/2020, Additional history exists CKD HGB USE SMARTSET 57827 07/19/202107/19, 06/28/2020, 05/27/2020, Additional history exists DIABETES-EYE [...] Documents on File Type Date Recorded Patient Marketing Project Lead 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
--- OUTSIDE RECORDS SUMMARY | 2023-06-18 03:18 | External Medical Summary | Summary of Care ---
Author Name Unknown Organization [place] [address] Care Team Providers Care Intensive Care Unit Registered Nurse Name Role Phone Marcela Pinto MD Primary Care Provider + Encounter Details Date Type Department Care Team Description 12/18/2020 Scan Encounter Unspecified Department <No scans attached> Allergies Active Allergy Reactions Severity Noted Date Comments Valsartan 07/10/2010 Enalapril 05/21/2006 Escitalopram Oxalate Nausea/vomiting 10/11/2009 Nauseated Iodinated Diagnostic Agents Nausea/vomiting 05/2010 IV Contrast Iodine Hives 12/18/2009 IV Contrast Lisinopril 05/21/2006 Metoprolol Tartrate 11/18/2006 Made pulse low [place] Oil-Black Currant-Vit E 07/10/2010 Verapamil 03/21/2004 Bupropion [...] of less than 7.0% ([facility]) USE TO TEST BLOOD SUGAR [...] :COPD, group B, 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 ([facility]) INHALE 1 PUFF BY MOUTH [...] A DAY 12 g 3 12/14/2020 Active documented as of this encounter (statuses [...] Hypoxemia 10/08/2011 10/30/2015 Genetic Sleep Disorder Research Other*[id number] 07/25/2011 05/15/2016 Diverticulitis of colon 07/25/2011 01/06/20 [...] Internal Medicine Marcela Pinto MD [address] [place] [address] [phone] Health Maintenance Due Date Last Done Comments Zoster Vaccines (2 of 3) 08/31/2012 07/06/2012 CKD PHOS USE SMARTSET 45727 03/22/2020 03/22/2019 DIABETES-FOOT EXAM 10/19/2020 10/19/2019, 0 01/05/2019, 01/16/2018, Additional history exists DIABETES-URINE MICROALBUMIN EVERY 12 MONTHS 12/08/2020 12/08/2019, 10/30/2019, 07/09/2019, Additional history exists CKD GFR USE SMARTSET 56821 06/04/202112/05, 07/19/2020, 06/28/2020, Additional history exists DIABETES-HGBA1C EVERY 6 MONTHS 06/04/2021 12/05/2020, 08/10/2020, 06/28/2020, Additional history exists DIABETES-EYE EXAM 08/07/2021 08/07/2020, , 09/14/2018, Additional history exists CKD HGB USE SMARTSET 91279 12/05/202112/05, 07/19/2020, 06/28/2020, Additional history exists Dexa [...] Documents on File Type Date Recorded Patient Physician/Allergy/Immunology 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
--- OUTSIDE RECORDS SUMMARY | 2023-06-18 03:18 | External Medical Summary | Summary of Care ---
Author Name Unknown Organization [place] [address] Care Team Providers Care Case Assistant Name Role Phone Alex Pinto MD Primary Care Provider + Reason for Visit * Reason Comments eRx-Medication Refill Encounter Details Date Type Department Care Team Description 09/29/2020 Refill General Internal Medicine [facility] [address] [place] [address] Alex Pinto MD [address] [place] [address] [phone] Allergies Active Allergy Reactions Severity Noted Date Comments Valsartan 07/10/2010 Enalapril 05/21/2006 Escitalopram Oxalate Nausea/vomiting 10/11/2009 Nauseated Iodinated Diagnostic Agents Nausea/vomiting 05/2010 IV Contrast Iodine Hives 12/18/2009 IV Contrast Lisinopril 05/21/2006 Metoprolol Tartrate 11/18/2006 Made pulse low [place] Oil-Black Currant-Vit E 07/10/2010 Verapamil 03/21/2004 Bupropion Hcl 10/30/2009 Makes pt sick in the stomach documented as of this encounter (statuses as of 10/03/2020) Medications Medication Sig Dispensed Refills Start Date [...] 300 Each 1 0 Active Glucose Blood ([employer] CONTOUR TEST) STRPIndications:Typ e 2 diabetes mellitus with hemoglobin A1c goal of less than 7.0% ([facility]) USE TO TEST BLOOD SUGAR [...] A DAY 12 g 3 0 Active omeprazole (PRILOSEC) 20 MG CPDRIndications:Isc hemic colitis (HCC) TAKE 1 CAPSULE BY MOUTH TWICE A DAY 180 Cap 1 0 Active Potassium Chloride Annalisa ER (KLOR-CON [...] s:COPD, group B, 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 ([facility]) INHALE 1 PUFF BY MOUTH [...] 10 DAYS 20 Tab 0 0 Active metroNIDAZOLE 500 MG Oral Tablet (FLAGYL) TAKE 1 TABLET BY MOUTH THREE TIMES A DAY FOR 5 DAYS 0 0 10/03/20 20 Discontinued Ciprofloxacin HCl 500 MG Oral Tablet (CIPRO) TAKE 1 TABLET BY MOUTH TWICE A DAY FOR 5 DAYS 0 0 10/03/20 20 Discontinued documented as of this encounter (statuses as of 10/03/2020) Active Problems Problem Noted Date Diabetes mellitus [...] as of this encounter (statuses as of 10/03/2020) Resolved Problems Problem Noted Date Resolved Date [...] Hypoxemia 10/08/2011 10/30/2015 Genetic Sleep Disorder Research Other*[id number] 07/25/2011 05/15/2016 Diverticulitis of colon 07/25/2011 01/06/20 [...] as of this encounter (statuses as of 10/03/2020) Immunizations Name Administration Dates Next Due Hepatitis [...] Telephone Encounter - Alex Pinto MD - 10/03/2020 7:57 AM EST Signed Prescriptions: Disp Refills metroNIDAZOLE 500 MG Oral Tablet (FLAGYL) 30 Tab 0 Sig: TAKE 1 TAB BY MOUTH 3 TIMES A DAY FOR 10 DAYS. Authorizing Provider: ALEX PINTO Ciprofloxacin HCl 500 MG Oral Tablet (CIPR*20 Tab 0 Sig: TAKE 1 TABLET BY MOUTH EVERY 12 HOURS FOR 10 DAYS Authorizing Provider: ALEX PINTO * Telephone Encounter - Eliezer Bernard [facility] - 10/02/2020 6:04 PM EST Pending Prescriptions: Disp Refills metroNIDAZOLE 500 MG Oral Tablet (FLAGYL) 30 Tab 0 Sig: TAKE 1 TAB BY MOUTH 3 TIMES A DAY FOR 10 DAYS. Ciprofloxacin HCl 500 MG Oral Tablet (CIPR*20 Tab 0 Sig: TAKE 1 TABLET BY MOUTH EVERY 12 HOURS FOR 10 DAYS * Telephone Encounter - Eliezer Bernard RPh - 10/02/2020 6:04 PM EST Pharmacists cannot authorize refills for meds listed as "historical" in chart. Please approve if appropriate. Thanks, Eliezer Bernard, R.Ph. Clinical Pharmacist [facility] [phone] 10/02/2020,6:04 PM Pending Prescriptions: Disp Refills metroNIDAZOLE 500 MG Oral Tablet (FLAGYL) 30 Tab 0 Sig: TAKE 1 TAB BY MOUTH 3 TIMES A DAY FOR 10 DAYS. Ciprofloxacin HCl 500 MG Oral Tablet (CIPR*20 Tab 0 Sig: TAKE 1 TABLET BY MOUTH EVERY 12 HOURS FOR 10 DAYS Last Office/Telemedicine Visit: 08/08/2020 Next Office Visit: 12/21/2020 Scheduled Provider(s): Alex Pinto MD If no future appointments scheduled, and last appointment is greater than a year ago, please schedule patient for a follow-up appointment Last date the medication was ordered: historical Pharmacy: [id number] [id number] [facility] Is this request for a controlled substance?No Urine Drug Screen: Results for orders placed or performed in visit on 08/26/19 OPIOIDS/BENZO COMPLIANCE MONITORING W/INTERP Result Value COMPLIANCE INTERP (NOTE) URINE DRUG SCREEN RESULT AMPHETAMINES REFER TO CONFIRMATION RESULT (A) BENZODIAZEPINES NEGATIVE CANNABINOIDS NEGATIVE COCAINE METABOLITE NEGATIVE HYDROCODONE REFER TO CONFIRMATION RESULT (A) METHADONE METABOLITE NEGATIVE MORPHINE / CODEINE REFER TO CONFIRMATION RESULT (A) OXYCODONE REFER [...] Internal Medicine Alex Pinto MD [address] [facility] [place] [address] Health Maintenance Due Date Last Done Comments Zoster Vaccines (2 of 3) 08/31/2012 07/06/2012 CKD PHOS USE SMARTSET 59278 03/22/2020 03/22/2019 DIABETES-FOOT EXAM 10/19/2020 10/19/2019, 0 01/05/2019, 01/16/2018, Additional history exists DIABETES-URINE MICROALBUMIN EVERY 12 MONTHS 12/08/2020 12/08/2019, 10/30/2019, 07/09/2019, Additional history exists CKD GFR USE SMARTSET 67151 01/17/202107/19, 06/28/2020, 05/27/2020, Additional history exists DIABETES-HGBA1C EVERY 6 MONTHS 02/08/2021 08/10/2020, 06/28/2020, 03/10/2020, Additional history exists CKD HGB USE SMARTSET 71937 07/19/202107/19, 06/28/2020, 05/27/2020, Additional history exists DIABETES-EYE [...] Documents on File Type Date Recorded Patient Trash Hauler 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
--- OUTSIDE RECORDS SUMMARY | 2023-06-18 03:19 | External Medical Summary | Summary of Care ---
Author Name Unknown Organization [place] [address] Care Team Providers Care Roustabout Crew Leader Name Role Phone Marcela Pinto MD Primary Care Provider + Encounter Details Date Type Department Care Team Description 09/01/2020 Orders Only Gastroenterology, [facility] [address] [place] [address] Zulay Eagle, [address] [facility] [address] Allergies Active Allergy Reactions Severity Noted Date Comments Valsartan 07/10/2010 Enalapril 05/21/2006 Escitalopram Oxalate Nausea/vomiting 10/11/2009 Nauseated Iodinated Diagnostic Agents Nausea/vomiting 05/2010 IV Contrast Iodine Hives 12/18/2009 IV Contrast Lisinopril 05/21/2006 Metoprolol Tartrate 11/18/2006 Made pulse low [place] Oil-Black Currant-Vit E 07/10/2010 Verapamil 03/21/2004 Bupropion Hcl 10/30/2009 Makes pt sick in the stomach documented as of this encounter (statuses as of 09/01/2020) Medications Medication Sig Dispensed Refills Start Date [...] sthma with severity to be determined,COPD, moderate ([facility]) TAKE 1 PUFF BY MOUTH 4 TIMES A DAY 12 g 3 01/14/2020 Active omeprazole (PRILOSEC) 20 MG CPDRIndications:Isch emic colitis ([facility]) TAKE 1 CAPSULE BY MOUTH TWICE A DAY 180 Cap 1 03/17/2020 Active Potassium Chloride Annalisa ER (KLOR-CON M20) 20 MEQ TBCRIndications:HTN, goal below 140/90 Take 1 Tab by mouth daily. 90 Tab 1 04/27/2020 Active dicyclomine (BENTYL) 20 MG TabletIndications:Ch ronic constipation Take 1 Tab by mouth daily. 90 Tab 2 04/27/2020 Active furosemide (LASIX) 40 MG TabletIndications:Es sential hypertension with goal blood pressure less [...] :COPD, group B, 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 ([facility]) INHALE 1 PUFF BY MOUTH EVERY DAY 90 Each 3 07/02/2020 Active metroNIDAZOLE 500 MG Oral Tablet (FLAGYL) TAKE 1 TABLET BY MOUTH THREE TIMES A DAY FOR 5 DAYS 0 08/02/2020 Active Ciprofloxacin HCl 500 MG Oral Tablet (CIPRO) TAKE 1 TABLET BY MOUTH TWICE A DAY FOR 5 DAYS 0 08/02/2020 Active methIMAzole 5 MG Oral Tablet (TAPAZOLE) Take 5 mg by mouth daily. 0 07/26/2020 Active Zafirlukast 20 MG Oral Tablet (ACCOLATE)Indication s:Asthma with severity to be determined TAKE 1 TABLET BY MOUTH EVERY DAY 90 Tab 3 08/15/2020 Active HYDROcodone-Acetamin ophen 5-325 MG Oral TabletIndications:Ge neralized osteoarthritis Take 1 Tab by mouth every 6 hours as needed for Pain, Mild. 120 Tab 0 08/15/2020 Active Atorvastatin Calcium 40 MG Oral Tablet (LIPITOR)Indications :Hyperlipidemia with target LDL less than 100 TAKE 1 TABLET BY MOUTH EVERY DAY 90 Tab 1 08/22/2020 Active documented as of this encounter (statuses as of 09/01/2020) Active Problems Problem Noted Date Diabetes mellitus [...] as of this encounter (statuses as of 09/01/2020) Resolved Problems Problem Noted Date Resolved Date [...] Hypoxemia 10/08/2011 10/30/2015 Genetic Sleep Disorder Research Other*[id number] 07/25/2011 05/15/2016 Diverticulitis of colon 07/25/2011 01/06/20 [...] as of this encounter (statuses as of 09/01/2020) Immunizations Name Administration Dates Next Due Hepatitis [...] Medicine Marcela Pinto MD [address] [place] [address] [phone] Health Maintenance Due Date Last Done Comments Zoster Vaccines (2 of 3) 08/31/2012 07/06/2012 CKD PHOS USE SMARTSET 68802 03/22/2020 03/22/2019 DIABETES-FOOT EXAM 10/19/2020 10/19/2019, 0 01/05/2019, 01/16/2018, Additional history exists DIABETES-URINE MICROALBUMIN EVERY 12 MONTHS 12/08/2020 12/08/2019, 10/30/2019, 07/09/2019, Additional history exists CKD GFR USE SMARTSET 01577 01/17/202107/19, 06/28/2020, 05/27/2020, Additional history exists DIABETES-HGBA1C EVERY 6 MONTHS 02/08/2021 08/10/2020, 06/28/2020, 03/10/2020, Additional history exists CKD HGB USE SMARTSET 77611 07/19/202107/19, 06/28/2020, 05/27/2020, Additional history exists DIABETES-EYE [...] Procedure Name Priority Date/Time Associated Diagnosis Comments UPPER GI ENDOSCOPY 09/01/2020 documented in this encounter Results * UPPER GI ENDOSCOPY (09/01/2020) Specimen Narrative Performed At documented in this encounter Advance Directives Documents on File Type Date Recorded 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
--- OUTSIDE RECORDS SUMMARY | 2023-06-18 03:19 | External Medical Summary | Summary of Care ---
Author Name Unknown Organization [place] [address] Care Team Providers Care Acidizer Water Well Name Role Phone Marcela Pinto MD Primary Care Provider + Encounter Details Date Type Department Care Team Description 09/11/2020 Scan Encounter Unspecified Department <No scans attached> Allergies Active Allergy Reactions Severity Noted Date Comments Valsartan 07/10/2010 Enalapril 05/21/2006 Escitalopram Oxalate Nausea/vomiting 10/11/2009 Nauseated Iodinated Diagnostic Agents Nausea/vomiting 05/2010 IV Contrast Iodine Hives 12/18/2009 IV Contrast Lisinopril 05/21/2006 Metoprolol Tartrate 11/18/2006 Made pulse low [place] Oil-Black Currant-Vit E 07/10/2010 Verapamil 03/21/2004 Bupropion Hcl 10/30/2009 Makes pt sick in the stomach documented as of this encounter (statuses as of 09/12/2020) Medications Medication Sig Dispensed Refills Start Date [...] goal of less than 7.0% ([facility]) USE TO TEST BLOOD SUGAR 3 TIMES A DAY FOR DIAGNOSIS CODE OF E11.9 300 Strip 1 01/05/2020 Active Blood Glucose Monitoring Suppl (CONTOUR MONITOR) w/Device KIT USE TO TEST BLOOD SUGAR 3 TIMES A DAY FOR DIAGNOSIS CODE OF E11.9 1 Kit 0 01/05/2020 Active COMBIVENT RESPIMAT 20-100 MCG/ACT InhalerIndications:A sthma with severity to be determined,COPD, moderate ([facility]) TAKE 1 PUFF BY MOUTH 4 TIMES A DAY 12 g 3 01/14/2020 Active omeprazole (PRILOSEC) 20 MG CPDRIndications:Isch emic colitis ([facility]) TAKE 1 CAPSULE BY MOUTH [...] B, 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 ([facility]) INHALE 1 PUFF BY MOUTH [...] as of this encounter (statuses as of 09/12/2020) Active Problems Problem Noted Date Diabetes mellitus [...] as of this encounter (statuses as of 09/12/2020) Resolved Problems Problem Noted Date Resolved Date [...] Hypoxemia 10/08/2011 10/30/2015 Genetic Sleep Disorder Research Other*[id number] 07/25/2011 05/15/2016 Diverticulitis of colon 07/25/2011 01/06/20 [...] as of this encounter (statuses as of 09/12/2020) Immunizations Name Administration Dates Next Due Hepatitis [...] Medicine Marcela Pinto MD [address] [place] [address] [phone] Health Maintenance Due Date Last Done Comments Zoster Vaccines (2 of 3) 08/31/2012 07/06/2012 CKD PHOS USE SMARTSET 81905 03/22/2020 03/22/2019 DIABETES-FOOT EXAM 10/19/2020 10/19/2019, 0 01/05/2019, 01/16/2018, Additional history exists DIABETES-URINE MICROALBUMIN EVERY 12 MONTHS 12/08/2020 12/08/2019, 10/30/2019, 07/09/2019, Additional history exists CKD GFR USE SMARTSET 61784 01/17/202107/19, 06/28/2020, 05/27/2020, Additional history exists DIABETES-HGBA1C EVERY 6 MONTHS 02/08/2021 08/10/2020, 06/28/2020, 03/10/2020, Additional history exists CKD HGB USE SMARTSET 36524 07/19/202107/19, 06/28/2020, 05/27/2020, Additional history exists DIABETES-EYE [...] Documents on File Type Date Recorded Patient Ekg Tech 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
--- OUTSIDE RECORDS SUMMARY | 2023-06-18 03:19 | External Medical Summary | Summary of Care ---
Author Name Unknown Organization [place] [address] Care Team Providers Care Software Publisher Name Role Phone Marcela Pinto MD Primary Care Provider + Reason for Visit * Reason Onset Date Comments COVID-19 Screening 09/13/2020 Encounter Details Date Type Department Care Team Description 09/13/2020 Telephone COVID19 Screening [facility] [address] [place] [id number], Automated Provider COVID-19 Screening Allergies Active Allergy Reactions Severity Noted Date Comments Valsartan 07/10/2010 Enalapril 05/21/2006 Escitalopram Oxalate Nausea/vomiting 10/11/2009 Nauseated Iodinated Diagnostic Agents Nausea/vomiting 05/2010 IV Contrast Iodine Hives 12/18/2009 IV Contrast Lisinopril 05/21/2006 Metoprolol Tartrate 11/18/2006 Made pulse low [place] Oil-Black Currant-Vit E 07/10/2010 Verapamil 03/21/2004 Bupropion Hcl 10/30/2009 Makes pt sick in the stomach documented as of this encounter (statuses as of 09/14/2020) Medications Medication Sig Dispensed Refills Start Date [...] omeprazole (PRILOSEC) 20 MG CPDRIndications:Isch emic colitis ([facility]) TAKE 1 CAPSULE [...] :COPD, group B, 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 ([facility]) [...] EVERY DAY 90 Tab 1 08/22/2020 Active Ciprofloxacin HCl 500 MG Oral Tablet (Cipro) Take 1 Tab by mouth every 12 hours for 10 days. 20 Tab 0 09/12/2020 0 Active metroNIDAZOLE 500 MG Oral Tablet (Flagyl) Take 1 Tab by mouth 3 times a day for 10 days. 30 Tab 0 09/12/2020 0 Active documented as of this encounter (statuses as of 09/14/2020) Active Problems Problem Noted Date Diabetes mellitus [...] as of this encounter (statuses as of 09/14/2020) Resolved Problems Problem Noted Date Resolved Date [...] Hypoxemia 10/08/2011 10/30/2015 Genetic Sleep Disorder Research Other*[id number] 07/25/2011 05/15/2016 Diverticulitis of colon 07/25/2011 01/06/20 [...] as of this encounter (statuses as of 09/14/2020) Immunizations Name Administration Dates Next Due Hepatitis [...] encounter Miscellaneous Notes * Telephone Encounter - Izabella Dubose Results - 09/13/2020 11:51 PM EST Outreach Attempts IVR Call Sep 13 2020 5:08PM Answered - Success Results COVID: Negative IVR Message: Ann Marie Wood. Your COVID-19 from 08/29/2020 00:00:00 results are negative. This means you are NOT infected with coronavirus. If your cold/flu symptoms last longer than 7 days or get worse, contact your primary care physician. If you don't have a primary care physician, go to the nearest [facility] or urgent care clinic. To establish care with a [employer] provider, please call [phone]. Practice social distancing and good hand hygiene to keep yourself and others safe. Your results are also available for your reference in your [employer] account under 'Test & Lab Results.' If you are not enrolled in [employer], you can create an account by going to [email or web address]. You will also receive a letter in the mail with your results. If you are a [employer] staff member or employee, when you receive your result, please call [facility] [employer] between 7 a.m. and 4 p.m. at [phone]. Notify them of your test results and for instructions on returning to work after your quarantine period. Press 1 if you would like to speak with a nurse, press 2 to hear this message again. documented in this encounter Plan of Treatment Upcoming Encounters Date Type Specialty Care Team Description 12/21/2020 Office Visit Internal Medicine Marcela Pinto MD [address] [place] [address] [phone] Health Maintenance Due Date Last Done Comments Zoster Vaccines (2 of 3) 08/31/2012 07/06/2012 CKD PHOS USE SMARTSET 13019 03/22/2020 03/22/2019 DIABETES-FOOT EXAM 10/19/2020 10/19/2019, 0 01/05/2019, 01/16/2018, Additional history exists DIABETES-URINE MICROALBUMIN EVERY 12 MONTHS 12/08/2020 12/08/2019, 10/30/2019, 07/09/2019, Additional history exists CKD GFR USE SMARTSET 51918 01/17/202107/19, 06/28/2020, 05/27/2020, Additional history exists DIABETES-HGBA1C EVERY 6 MONTHS 02/08/2021 08/10/2020, 06/28/2020, 03/10/2020, Additional history exists CKD HGB USE SMARTSET 33499 07/19/202107/19, 06/28/2020, 05/27/2020, Additional history exists DIABETES-EYE [...] Documents on File Type Date Recorded Patient Retail Agent 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
--- OUTSIDE RECORDS SUMMARY | 2023-06-18 03:19 | External Medical Summary | Summary of Care ---
Author Name Unknown Organization [place] [address] Care Team Providers Care Pattern Drum Maker Name Role Phone Marcela Pinto MD Primary Care Provider + Encounter Details Date Type Department Care Team Description 08/29/2020 Orders Only Gastroenterology, [facility] [address] [facility] [place] [address] Zulay Eagle, [address] [facility] [place] [address] Allergies Active Allergy Reactions Severity Noted Date Comments Valsartan 07/10/2010 Enalapril 05/21/2006 Escitalopram Oxalate Nausea/vomiting 10/11/2009 Nauseated Iodinated Diagnostic Agents Nausea/vomiting 05/2010 IV Contrast Iodine Hives 12/18/2009 IV Contrast Lisinopril 05/21/2006 Metoprolol Tartrate 11/18/2006 Made pulse low [place] Oil-Black Currant-Vit E 07/10/2010 Verapamil 03/21/2004 Bupropion Hcl 10/30/2009 Makes pt sick in the stomach documented as of this encounter (statuses as of 08/29/2020) Medications Medication Sig Dispensed Refills Start Date [...] sthma with severity to be determined,COPD, moderate ([facility]) TAKE 1 PUFF BY MOUTH 4 TIMES A DAY 12 g 3 01/14/2020 Active omeprazole (PRILOSEC) 20 MG CPDRIndications:Isch emic colitis ([facility]) [...] :COPD, group B, 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 ([facility] [...] as of this encounter (statuses as of 08/29/2020) Active Problems Problem Noted Date Diabetes mellitus [...] as of this encounter (statuses as of 08/29/2020) Resolved Problems Problem Noted Date Resolved Date [...] Hypoxemia 10/08/2011 10/30/2015 Genetic Sleep Disorder Research Other*[id number] 07/25/2011 05/15/2016 Diverticulitis of colon 07/25/2011 01/06/20 [...] as of this encounter (statuses as of 08/29/2020) Immunizations Name Administration Dates Next Due Hepatitis [...] Encounters Date Type Specialty Care Team Description 09/01/2020 Procedure Only Endoscopy Zulay Eagle, DO [address] [place] [address] [phone] 12/21/2020 Office Visit Internal Medicine Marcela Pinto MD [address] [place] [address] [phone] Health Maintenance Due Date Last Done Comments Zoster Vaccines (2 of 3) 08/31/2012 07/06/2012 CKD PHOS USE SMARTSET 62578 03/22/2020 03/22/2019 DIABETES-FOOT EXAM 10/19/2020 10/19/2019, 0 01/05/2019, 01/16/2018, Additional history exists DIABETES-URINE MICROALBUMIN EVERY 12 MONTHS 12/08/2020 12/08/2019, 10/30/2019, 07/09/2019, Additional history exists CKD GFR USE SMARTSET 20938 01/17/202107/19, 06/28/2020, 05/27/2020, Additional history exists DIABETES-HGBA1C EVERY 6 MONTHS 02/08/2021 08/10/2020, 06/28/2020, 03/10/2020, Additional history exists CKD HGB USE SMARTSET 60035 07/19/202107/19, 06/28/2020, 05/27/2020, Additional history exists DIABETES-EYE [...] Procedure Name Priority Date/Time Associated Diagnosis Comments COVID-19 Routine 08/25/2020 documented in this encounter Results * COVID-19 (08/25/2020) [id number] LAB NEGATIVE OUTSIDE LAB (SEE SCANNED REPORT) Specimen Narrative Performed At OUTSIDE LAB (SEE SCANNED REPORT) documented in this encounter Advance Directives Documents on File Type Date Recorded 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
--- OUTSIDE RECORDS SUMMARY | 2023-06-18 03:19 | External Medical Summary | Summary of Care ---
Author Name Unknown Organization [place] [address] Care Team Providers Care Fishing Accessories Maker Name Role Phone Marcela Pinto MD Primary Care Provider + Reason for Visit * Reason Onset Date Comments COVID-19 Screening 09/13/2020 Encounter Details Date Type Department Care Team Description 09/13/2020 Telephone COVID19 Screening [facility] [address] [place] [id number], Automated Provider COVID-19 Screening Allergies Active Allergy Reactions Severity Noted Date Comments Valsartan 07/10/2010 Enalapril 05/21/2006 Escitalopram Oxalate Nausea/vomiting 10/11/2009 Nauseated Iodinated Diagnostic Agents Nausea/vomiting 05/2010 IV Contrast Iodine Hives 12/18/2009 IV Contrast Lisinopril 05/21/2006 Metoprolol Tartrate 11/18/2006 Made pulse low [place] Oil-Black Currant-Vit E 07/10/2010 Verapamil 03/21/2004 Bupropion Hcl 10/30/2009 Makes pt sick in the stomach documented as of this encounter (statuses as of 09/13/2020) Medications Medication Sig Dispensed Refills Start Date [...] [facility]) USE TO TEST BLOOD SUGAR 3 [...] omeprazole (PRILOSEC) 20 MG CPDRIndications:Isch emic colitis ([facility]) TAKE 1 CAPSULE BY MOUTH TWICE A DAY 180 Cap 1 03/17/2020 Active Potassium Chloride Annalias ER (KLOR-CON M20) 20 MEQ TBCRIndications:HTN, goal [...] as of this encounter (statuses as of 09/13/2020) Active Problems Problem Noted Date Diabetes mellitus [...] as of this encounter (statuses as of 09/13/2020) Resolved Problems Problem Noted Date Resolved Date [...] Hypoxemia 10/08/2011 10/30/2015 Genetic Sleep Disorder Research Other*[id number] 07/25/2011 05/15/2016 Diverticulitis of colon 07/25/2011 01/06/20 [...] as of this encounter (statuses as of 09/13/2020) Immunizations Name Administration Dates Next Due Hepatitis [...] Encounter - Izabella Dubose Results - 09/13/2020 10:40 AM EST Outreach Attempts IVR Call Sep 12 2020 5:40PM Voicemail - Voicemail Results COVID: Negative IVR Message: Ann Marie Wood. This is [employer] calling to let you know you have test results available. You can access this result in your [employer] account under 'Test & Lab Results'. If you are not enrolled in [employer], you can create an account by going to [email or web address]. You can also call back at [phone] Or we will attempt to reach you later today. documented in this encounter Plan of Treatment Upcoming Encounters Date Type Specialty Care Team Description 12/21/2020 Office Visit Internal Medicine Marcela Pinto MD [address] [place] [address], [place] [address] Health Maintenance Due Date Last Done Comments Zoster Vaccines (2 of 3) 08/31/2012 07/06/2012 CKD PHOS USE SMARTSET 38763 03/22/2020 03/22/2019 DIABETES-FOOT EXAM 10/19/2020 10/19/2019, 0 01/05/2019, 01/16/2018, Additional history exists DIABETES-URINE MICROALBUMIN EVERY 12 MONTHS 12/08/2020 12/08/2019, 10/30/2019, 07/09/2019, Additional history exists CKD GFR USE SMARTSET 20404 01/17/202107/19, 06/28/2020, 05/27/2020, Additional history exists DIABETES-HGBA1C EVERY 6 MONTHS 02/08/2021 08/10/2020, 06/28/2020, 03/10/2020, Additional history exists CKD HGB USE SMARTSET 61988 07/19/202107/19, 06/28/2020, 05/27/2020, Additional history exists DIABETES-EYE [...] on File Type Date Recorded 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
--- OUTSIDE RECORDS SUMMARY | 2023-06-18 03:19 | External Medical Summary | Summary of Care ---
Author Name Unknown Organization [place] [address] Care Team Providers Care Fructose Loader Name Role Phone Marcela Pinto MD Primary Care Provider + Encounter Details Date Type Department Care Team Description 09/01/2020 Orders Only Gastroenterology, [facility] [address] [facility] [place] [address] Zulay Eagle[facility] [address] [facility] [address] Allergies Active Allergy Reactions Severity Noted Date Comments Valsartan 07/10/2010 Enalapril 05/21/2006 Escitalopram Oxalate Nausea/vomiting 10/11/2009 Nauseated Iodinated Diagnostic Agents Nausea/vomiting 05/2010 IV Contrast Iodine Hives 12/18/2009 IV Contrast Lisinopril 05/21/2006 Metoprolol Tartrate 11/18/2006 Made pulse low [place] Oil-Black Currant-Vit E 07/10/2010 Verapamil 03/21/2004 Bupropion [...] omeprazole (PRILOSEC) 20 MG CPDRIndications:Isch emic colitis ([facility]) [...] B, 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 ([facility]) INHALE 1 PUFF BY MOUTH EVERY DAY [...] Hypoxemia 10/08/2011 10/30/2015 Genetic Sleep Disorder Research Other*[id number] 07/25/2011 05/15/2016 Diverticulitis of colon 07/25/2011 01/06/20 [...] Medicine Marcela Pinto MD [address] [place] [address] [phone] Health Maintenance Due Date Last Done Comments Zoster Vaccines (2 of 3) 08/31/2012 07/06/2012 CKD PHOS USE SMARTSET 72085 03/22/2020 03/22/2019 DIABETES-FOOT EXAM 10/19/2020 10/19/2019, 0 01/05/2019, 01/16/2018, Additional history exists DIABETES-URINE MICROALBUMIN EVERY 12 MONTHS 12/08/2020 12/08/2019, 10/30/2019, 07/09/2019, Additional history exists CKD GFR USE SMARTSET 15641 01/17/202107/19, 06/28/2020, 05/27/2020, Additional history exists DIABETES-HGBA1C EVERY 6 MONTHS 02/08/2021 08/10/2020, 06/28/2020, 03/10/2020, Additional history exists CKD HGB USE SMARTSET 52791 07/19/202107/19, 06/28/2020, 05/27/2020, Additional history exists DIABETES-EYE [...] Name Priority Date/Time Associated Diagnosis Comments UPPER ENDOSCOPIC U/S 09/01/2020 documented in this encounter Results * UPPER ENDOSCOPIC U/S (09/01/2020) Specimen Narrative Performed At documented in this encounter Advance Directives Documents on File Type Date Recorded Patient Systems Administration Analyst 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
--- OUTSIDE RECORDS SUMMARY | 2023-06-18 03:19 | External Medical Summary | Summary of Care ---
Author Name Unknown Organization [place] [address] Care Team Providers Care Loss Prevention/Safety District Manager Name Role Phone Marcela Pinto MD Primary Care Provider + Encounter Details Date Type Department Care Team Description 09/01/2020 Scan Encounter Unspecified Department <No scans attached> Allergies Active Allergy Reactions Severity Noted Date Comments Valsartan 07/10/2010 Enalapril 05/21/2006 Escitalopram Oxalate Nausea/vomiting 10/11/2009 Nauseated Iodinated Diagnostic Agents Nausea/vomiting 05/2010 IV Contrast Iodine Hives 12/18/2009 IV Contrast Lisinopril 05/21/2006 Metoprolol Tartrate 11/18/2006 Made pulse low [place] Oil-Black Currant-Vit E 07/10/2010 Verapamil 03/21/2004 Bupropion Hcl 10/30/2009 Makes pt sick in the stomach documented as of this encounter (statuses as of 09/04/2020) Medications Medication Sig Dispensed Refills Start Date [...] goal of less than 7.0% ([facility]) USE TO TEST BLOOD SUGAR 3 TIMES A DAY FOR DIAGNOSIS CODE OF E11.9 300 Strip 1 01/05/2020 Active Blood Glucose Monitoring Suppl (CONTOUR MONITOR) w/Device KIT USE TO TEST BLOOD SUGAR 3 TIMES A DAY FOR DIAGNOSIS CODE OF E11.9 1 Kit 0 01/05/2020 Active COMBIVENT RESPIMAT 20-100 MCG/ACT InhalerIndications:A sthma with severity to be determined,COPD, moderate ([facility]) TAKE 1 PUFF BY MOUTH 4 TIMES A DAY 12 g 3 01/14/2020 Active omeprazole (PRILOSEC) 20 MG CPDRIndications:Isch emic colitis ([facility]) TAKE 1 CAPSULE BY MOUTH TWICE [...] :COPD, group B, 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 ([facility]) INHALE 1 PUFF BY MOUTH EVERY [...] as of this encounter (statuses as of 09/04/2020) Active Problems Problem Noted Date Diabetes mellitus [...] as of this encounter (statuses as of 09/04/2020) Resolved Problems Problem Noted Date Resolved Date [...] Hypoxemia 10/08/2011 10/30/2015 Genetic Sleep Disorder Research Other*[id number] 07/25/2011 05/15/2016 Diverticulitis of colon 07/25/2011 01/06/20 [...] as of this encounter (statuses as of 09/04/2020) Immunizations Name Administration Dates Next Due Hepatitis [...] Medicine Marcela Pinto MD [address] [place] [address] [phone] Health Maintenance Due Date Last Done Comments Zoster Vaccines (2 of 3) 08/31/2012 07/06/2012 CKD PHOS USE SMARTSET 52905 03/22/2020 03/22/2019 DIABETES-FOOT EXAM 10/19/2020 10/19/2019, 0 01/05/2019, 01/16/2018, Additional history exists DIABETES-URINE MICROALBUMIN EVERY 12 MONTHS 12/08/2020 12/08/2019, 10/30/2019, 07/09/2019, Additional history exists CKD GFR USE SMARTSET 71450 01/17/202107/19, 06/28/2020, 05/27/2020, Additional history exists DIABETES-HGBA1C EVERY 6 MONTHS 02/08/2021 08/10/2020, 06/28/2020, 03/10/2020, Additional history exists CKD HGB USE SMARTSET 16991 07/19/202107/19, 06/28/2020, 05/27/2020, Additional history exists DIABETES-EYE [...] Documents on File Type Date Recorded 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
--- OUTSIDE RECORDS SUMMARY | 2023-06-18 03:19 | External Medical Summary | Summary of Care ---
Author Name Unknown Organization [place] [address] Care Team Providers Care [employer] Name Role Phone Marcela Pinto MD Primary Care Provider + Reason for Visit * Reason Onset Date Comments COVID-19 Screening 09/12/2020 Encounter Details Date Type Department Care Team Description 09/12/2020 Telephone COVID19 Screening [facility] [address] [place] [id number], Automated Provider COVID-19 Screening Allergies Active Allergy Reactions Severity Noted Date Comments Valsartan 07/10/2010 Enalapril 05/21/2006 Escitalopram Oxalate Nausea/vomiting 10/11/2009 Nauseated Iodinated Diagnostic Agents Nausea/vomiting 05/2010 IV Contrast Iodine Hives 12/18/2009 IV Contrast Lisinopril 05/21/2006 Metoprolol Tartrate 11/18/2006 Made pulse low [place] Oil-Black Currant-Vit E 07/10/2010 Verapamil 03/21/2004 Bupropion [...] than 7.0% ([facility]) USE TO TEST BLOOD SUGAR [...] 20 MG CPDRIndications:Isch emic colitis ([facility]) TAKE [...] Hypoxemia 10/08/2011 10/30/2015 Genetic Sleep Disorder Research Other*[id number] 07/25/2011 05/15/2016 Diverticulitis of colon 07/25/2011 01/06/20 [...] Telephone Encounter - Izabella Dubose Results - 09/12/2020 10:14 PM EST Outreach Attempts IVR Call Sep 12 2020 5:40PM Voicemail - Voicemail Results COVID: Negative IVR Message: Ann Marie Wood. This is [employer] calling to let you know you have test results available. You can access this result in your [employer] account under 'Test & Lab Results'. If you are not enrolled in [employer], you can create an account by going to [email or web address]. You can also call back at [phone] Or we will attempt to reach you later today. documented in this encounter Plan of Treatment Upcoming Encounters Date Type Specialty Care Team Description 12/21/2020 Office Visit Internal Medicine Marcela Pinto MD [address] [place] [address], [place] [address] Health Maintenance Due Date Last Done Comments Zoster Vaccines (2 of 3) 08/31/2012 07/06/2012 CKD PHOS USE SMARTSET 92758 03/22/2020 03/22/2019 DIABETES-FOOT EXAM 10/19/2020 10/19/2019, 0 01/05/2019, 01/16/2018, Additional history exists DIABETES-URINE MICROALBUMIN EVERY 12 MONTHS 12/08/2020 12/08/2019, 10/30/2019, 07/09/2019, Additional history exists CKD GFR USE SMARTSET 83969 01/17/202107/19, 06/28/2020, 05/27/2020, Additional history exists DIABETES-HGBA1C EVERY 6 MONTHS 02/08/2021 08/10/2020, 06/28/2020, 03/10/2020, Additional history exists CKD HGB USE SMARTSET 50112 07/19/202107/19, 06/28/2020, 05/27/2020, Additional history exists DIABETES-EYE [...] Documents on File Type Date 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
--- OUTSIDE RECORDS SUMMARY | 2023-06-18 03:19 | External Medical Summary | Summary of Care ---
Author Name Unknown Organization [place] [address] Care Team Providers Care [employer] Name Role Phone Marcela Pinto MD Primary Care Provider + Reason for Visit * Reason Onset Date Comments Advice 09/12/2020 Encounter Details Date Type Department Care Team Description 09/12/2020 Telephone General Internal Medicine [facility] [address] [place], [place] [phone] Marcela Pinto MD [address] [place], [place] [phone] Advice Allergies Active Allergy Reactions Severity Noted Date Comments Valsartan 07/10/2010 Enalapril 05/21/2006 Escitalopram Oxalate Nausea/vomiting 10/11/2009 Nauseated Iodinated Diagnostic Agents Nausea/vomiting 05/2010 IV Contrast Iodine Hives 12/18/2009 IV Contrast Lisinopril 05/21/2006 Metoprolol Tartrate 11/18/2006 Made pulse low [place] Oil-Black Currant-Vit E 07/10/2010 Verapamil 03/21/2004 Bupropion [...] 300 Each 1 01/05/2020 Active Glucose Blood ([employer] CONTOUR TEST) STRPIndications:Type 2 diabetes mellitus with [...] omeprazole (PRILOSEC) 20 MG CPDRIndications:Isch emic colitis ([facility]) TAKE 1 CAPSULE BY MOUTH [...] :COPD, group B, 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 ([facility] [...] Hypoxemia 10/08/2011 10/30/2015 Genetic Sleep Disorder Research Other*[id number] 07/25/2011 05/15/2016 Diverticulitis of colon 07/25/2011 01/06/20 [...] Telephone Encounter - Renetta Gu LPN - 09/12/2020 1:38 PM EST Patient is aware and will comply. Thank you * Telephone Encounter - Marcela Pinto MD - 09/12/2020 1:07 PM EST Noted. Please inform the patient that her script was sent. If any significant or worsening symptomsneeds to go to emergency room. Also advised on low-fat diet until symptoms improve were done with antibiotic. * Telephone Encounter - Vani Pelletier LPN - 09/12/2020 10:59 AM EST Pt calling states that she is having a flair of Diverticulitis and is inquiring if PCP would sent in Cipro and Flagyl for her? Pt states that she is having left flank pain that started about Friday. Pt does have Hx of Diverticulitis. Please advise thank you documented in this encounter Plan of Treatment Upcoming Encounters Date Type Specialty Care Team Description 12/21/2020 Office Visit Internal Medicine Marcela Pinto MD [address] [place] [address] [phone] Health Maintenance Due Date Last Done Comments Zoster Vaccines (2 of 3) 08/31/2012 07/06/2012 CKD PHOS USE SMARTSET 42283 03/22/2020 03/22/2019 DIABETES-FOOT EXAM 10/19/2020 10/19/2019, 0 01/05/2019, 01/16/2018, Additional history exists DIABETES-URINE MICROALBUMIN EVERY 12 MONTHS 12/08/2020 12/08/2019, 10/30/2019, 07/09/2019, Additional history exists CKD GFR USE SMARTSET 24151 01/17/202107/19, 06/28/2020, 05/27/2020, Additional history exists DIABETES-HGBA1C EVERY 6 MONTHS 02/08/2021 08/10/2020, 06/28/2020, 03/10/2020, Additional history exists CKD HGB USE SMARTSET 05700 07/19/202107/19, 06/28/2020, 05/27/2020, Additional history exists DIABETES-EYE [...] Documents on File Type Date 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
--- OUTSIDE RECORDS SUMMARY | 2023-06-18 03:19 | External Medical Summary | Summary of Care ---
Author Name Unknown Organization [place] [address] Care Team Providers Care [employer] Services Supervisor Name Role Phone Alex Pinto MD Primary Care Provider + Reason for Visit * Reason Comments eRx-Medication Refill Encounter Details Date Type Department Care Team Description 08/20/2020 Refill General Internal Medicine [facility] [address] [place], [place] [phone] Alex Pinto MD [address] [place], [place] [phone] Hyperlipidemia with target LDL less than 100 Allergies Active Allergy Reactions Severity Noted Date Comments Valsartan 07/10/2010 Enalapril 05/21/2006 Escitalopram Oxalate Nausea/vomiting 10/11/2009 Nauseated Iodinated Diagnostic Agents Nausea/vomiting 05/2010 IV Contrast Iodine Hives 12/18/2009 IV Contrast Lisinopril 05/21/2006 Metoprolol Tartrate 11/18/2006 Made pulse low [place] Oil-Black Currant-Vit E 07/10/2010 Verapamil 03/21/2004 Bupropion Hcl 10/30/2009 Makes pt sick in the stomach documented as of this encounter (statuses as of 08/22/2020) Medications Medication Sig Dispensed Refills Start Date [...] 300 Each 1 0 Active Glucose Blood ([employer] CONTOUR TEST) STRPIndications:Typ e 2 diabetes mellitus with hemoglobin A1c goal of less than 7.0% ([facility]) USE TO TEST BLOOD SUGAR 3 TIMES A DAY FOR DIAGNOSIS CODE OF E11.9 300 Strip 1 0 Active Blood Glucose Monitoring Suppl (CONTOUR MONITOR) w/Device KIT USE TO TEST BLOOD SUGAR 3 TIMES A DAY FOR DIAGNOSIS CODE OF E11.9 1 Kit 0 0 Active COMBIVENT RESPIMAT 20-100 MCG/ACT InhalerIndications: Asthma with severity to be determined,COPD, moderate ([facility]) TAKE 1 PUFF BY MOUTH 4 TIMES A DAY 12 g 3 0 Active omeprazole (PRILOSEC) 20 MG CPDRIndications:Isc hemic colitis ([facility]) TAKE 1 [...] EVERY DAY 90 Each 3 0 Active metroNIDAZOLE 500 MG Oral Tablet (FLAGYL) TAKE 1 TABLET BY MOUTH THREE TIMES A DAY FOR 5 DAYS 0 0 Active Ciprofloxacin HCl 500 MG Oral Tablet (CIPRO) TAKE 1 TABLET BY MOUTH TWICE A DAY FOR 5 DAYS 0 0 Active methIMAzole 5 MG Oral Tablet [...] EVERY DAY 90 Tab 1 0 Active atorvaSTATin (LIPITOR) 40 MG TabletIndications:H yperlipidemia with target LDL less than 100 TAKE 1 TABLET BY MOUTH EVERY DAY 90 Tab 1 0 08/22/20 20 Discontinued documented as of this encounter (statuses as of 08/22/2020) Active Problems Problem Noted Date Diabetes mellitus [...] as of this encounter (statuses as of 08/22/2020) Resolved Problems Problem Noted Date Resolved Date [...] Hypoxemia 10/08/2011 10/30/2015 Genetic Sleep Disorder Research Other*[id number] 07/25/2011 05/15/2016 Diverticulitis of colon 07/25/2011 01/06/20 [...] as of this encounter (statuses as of 08/22/2020) Immunizations Name Administration Dates Next Due Hepatitis [...] Notes * Telephone Encounter - Doug Hayward [facility] - 08/22/2020 8:58 AM EST Signed Prescriptions: Disp Refills Atorvastatin Calcium 40 MG Oral Tablet (LI*90 Tab 1 Sig: TAKE 1 TABLET BY MOUTH EVERY DAYAuthorizing Provider: ALEX PINTO User: DOUG GONZALEZ- documented in this encounter Plan of Treatment Upcoming Encounters Date Type Specialty Care Team Description 09/01/2020 Procedure Only [facility] [address] [facility] [id number] 12/21/2020 Office Visit Internal Medicine Alex Pinto MD [address] [facility] [place] [address] [phone] Health Maintenance Due Date Last Done Comments Zoster Vaccines (2 of 3) 08/31/2012 07/06/2012 CKD PHOS USE SMARTSET 37207 03/22/2020 03/22/2019 DIABETES-FOOT EXAM 10/19/2020 10/19/2019, 0 01/05/2019, 01/16/2018, Additional history exists DIABETES-URINE MICROALBUMIN EVERY 12 MONTHS 12/08/2020 12/08/2019, 10/30/2019, 07/09/2019, Additional history exists CKD GFR USE SMARTSET 23924 01/17/202107/19, 06/28/2020, 05/27/2020, Additional history exists DIABETES-HGBA1C EVERY 6 MONTHS 02/08/2021 08/10/2020, 06/28/2020, 03/10/2020, Additional history exists CKD HGB USE SMARTSET 54092 07/19/202107/19, 06/28/2020, 05/27/2020, Additional history exists DIABETES-EYE [...] Documents on File Type Date Recorded 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
--- OUTSIDE RECORDS SUMMARY | 2023-06-18 03:19 | External Medical Summary | Summary of Care ---
Author Name Unknown Organization [place] [address] Care Team Providers Care Sports Official Name Role Phone Marcela Pinto MD Primary Care Provider + Reason for Visit * Reason Onset Date Comments case management 09/04/2020 Closing from Cruz e Management Encounter Details Date Type Department Care Team Description 09/04/2020 Merchandise Planning Manager Telephone Family [facility] [address] [place] [address] Cici Gama, RN [address] [place] [address] [place] [address] case management (Closing from Case Managem... Allergies Active Allergy Reactions Severity Noted Date Comments Valsartan 07/10/2010 Enalapril 05/21/2006 Escitalopram Oxalate Nausea/vomiting 10/11/2009 Nauseated Iodinated Diagnostic Agents Nausea/vomiting 05/2010 IV Contrast Iodine Hives 12/18/2009 IV Contrast Lisinopril 05/21/2006 Metoprolol Tartrate 11/18/2006 Made pulse low [place] Oil-Black Currant-Vit E 07/10/2010 Verapamil 03/21/2004 Bupropion [...] 300 Each 1 01/05/2020 Active Glucose Blood ([employer] CONTOUR TEST) STRPIndications:Type 2 diabetes mellitus with [...] Hypoxemia 10/08/2011 10/30/2015 Genetic Sleep Disorder Research Other*[id number] 07/25/2011 05/15/2016 Diverticulitis of colon 07/25/2011 01/06/20 [...] Telephone Encounter - Cici Gama RN - 09/04/2020 8:37 AM EST 30 day HERMAN completed. PCP follow up appointment kept on 08/08/20. Upper GI, and upper endoscopy completed 09/01/20, with Dr Eagle. Upper GI was normal. Upper endoscopy only showed 8 x 5 mm intramural (subepithelial) lesion was found in the cardia of the stomach. The lesion appeared to originate from within the muscularis propria (Layer 4). Tissue has not been obtained. However, the endosonographic appearance is consistent with a Leiomyoma. No specimens collected. Disenrolled from telehealth post discharge IVR calls in [employer]. No Case Management needs. Closing from Case Management. documented in this encounter Plan of Treatment Upcoming Encounters Date Type Specialty Care Team Description 12/21/2020 Office Visit Internal Medicine Marcela Pinto MD [address] [place] [place] [address] Health Maintenance Due Date Last Done Comments Zoster Vaccines (2 of 3) 08/31/2012 07/06/2012 CKD PHOS USE SMARTSET 66245 03/22/2020 03/22/2019 DIABETES-FOOT EXAM 10/19/2020 10/19/2019, 0 01/05/2019, 01/16/2018, Additional history exists DIABETES-URINE MICROALBUMIN EVERY 12 MONTHS 12/08/2020 12/08/2019, 10/30/2019, 07/09/2019, Additional history exists CKD GFR USE SMARTSET 04226 01/17/202107/19, 06/28/2020, 05/27/2020, Additional history exists DIABETES-HGBA1C EVERY 6 MONTHS 02/08/2021 08/10/2020, 06/28/2020, 03/10/2020, Additional history exists CKD HGB USE SMARTSET 54620 07/19/202107/19, 06/28/2020, 05/27/2020, Additional history exists DIABETES-EYE [...] on File Type Date Recorded 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
--- OUTSIDE RECORDS SUMMARY | 2023-06-18 03:20 | External Medical Summary | Summary of Care ---
Author Name Unknown Organization [place] [address] Care Team Providers Care Hospital Recruiter Name Role Phone Marcela Pinto MD Primary Care Provider + Reason for Visit * Reason Onset Date Comments case management 08/04/2020 Encounter Details Date Type Department Care Team Description 08/04/2020 Corporate Legal AssistantBeader [facility] [address] [place] [address] Cici Gama, BIJAL [address] [place] [address] [place] [id number] Medical home patient encounter*; Hospital discharge follow-up; Diverticulitis of colon; Ischemic colitis ([facility]); Irritable bowel syndrome with constipation; COPD, group B, 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 ([facility]); Type 2 diabetes mellitus with hemoglobin A1c goal of less than 7.5% ([facility]); Generalized osteoarthritis; Nocturnal hypoxia; HTN, goal below 140/90; Hyperlipidemia with target LDL less than 100 Allergies Active Allergy Reactions Severity Noted Date Comments Valsartan 07/10/2010 Enalapril 05/21/2006 Escitalopram Oxalate Nausea/vomiting 10/11/2009 Nauseated Iodinated Diagnostic Agents Nausea/vomiting 05/2010 IV Contrast Iodine Hives 12/18/2009 IV Contrast Lisinopril 05/21/2006 Metoprolol Tartrate 11/18/2006 Made pulse low [place] Oil-Black Currant-Vit E 07/10/2010 Verapamil 03/21/2004 Bupropion Hcl 10/30/2009 Makes pt sick in the stomach documented as of this encounter (statuses as of 08/09/2020) Medications Medication Sig Dispensed Refills Start Date [...] 300 Each 1 01/05/2020 Active Glucose Blood (Memeo CONTOUR TEST) STRPIndications:Type 2 diabetes mellitus with [...] A DAY 12 g 3 01/14/2020 Active atorvaSTATin (LIPITOR) 40 MG TabletIndications:Hy perlipidemia with target LDL less than 100 TAKE 1 TABLET BY MOUTH EVERY DAY 90 Tab 1 02/28/2020 Active omeprazole (PRILOSEC) 20 MG CPDRIndications:Isch emic colitis (HCC) TAKE 1 CAPSULE BY MOUTH TWICE A DAY 180 Cap 1 03/17/2020 Active zafirlukast (ACCOLATE) 20 MG TabletIndications:As thma with severity to be determined TAKE 1 TABLET BY MOUTH EVERY DAY 90 Tab 1 03/22/2020 Active Potassium Chloride Annalisa ER (KLOR-CON M20) [...] hours as needed for Nausea. 0 Active HYDROcodone-acetamin ophen 5-325 mg per tab 5-325 MG per tabletIndications:Ge neralized osteoarthritis Take 1 Tab by mouth every 6 hours as needed for Pain, Mild. 120 Tab 0 06/28/2020 Active ondansetron ODT (ZOFRAN) [address] 8 mg on tongue every 8 hours as needed for Nausea. dissolve on tongue. 0 Active doxycycline 100 MG Tablet Take 100 mg by mouth 2 times a day. RESCUE KIT: Take for Colds. 0 Active Incruse Ellipta 62.5 MCG/INH Inhalation Aerosol Powder Breath ActivatedIndications :COPD, group B, 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 ([facility]) INHALE 1 PUFF BY MOUTH EVERY DAY 90 Each 3 07/02/2020 Active documented as of this encounter (statuses as of 08/09/2020) Active Problems Problem Noted Date Diabetes mellitus [...] as of this encounter (statuses as of 08/09/2020) Resolved Problems Problem Noted Date Resolved Date [...] Hypoxemia 10/08/2011 10/30/2015 Genetic Sleep Disorder Research Other*[id number] 07/25/2011 05/15/2016 Diverticulitis of colon 07/25/2011 01/06/20 [...] as of this encounter (statuses as of 08/09/2020) Immunizations Name Administration Dates Next Due Hepatitis [...] Progress Notes * Cici Gama, RN - 08/04/2020 2:10 PM EDT Case Management Assessment - HERMAN Assessment Risk Adm/ER: 48% High Risk Is this call for a hospital, assisted or rehab facility discharge to home? Yes - patient was inpatient at [facility] from 07/28/20 to 08/02/20, with Diverticulitis. S: Reports: Weight gain: Weight stable at 235 lbs Increased edema: peripheral edema: "just a little wee bit". Chest pain - denies -denies dizziness Increased shortness of breath: denies. Reports respiratory status as "okay". 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 and denies side effects Chronic Pain: back -taking pain medications about 2 x day: hydrocodone/acetaminophen -has a back brace, but not wearing -back pain increases with activities such as vacuuming, standing or walking for extended periods -denies headache Does Patient have Type 2 DM ? Yes. Does this patient take sulfonylureas and/or basal insulin? Yes. 1. Do you know what the symptoms of hypoglycemia are? yes 2. How often can you tell by your symptoms if your blood sugar is low? Always 3. In a typical week, how many times will your blood sugar go below 70 mg/dL? Never -patient uses Neuropure Contour glucometer to monitor blood sugars at home -checking blood sugars 3 x day -patient reports if BS falls below 100, becomes symptomatic - ex: dizziness, lightheaded -lowest recent BS: 88, highest recent BS: 210. -FBS today was 128. Sleep: "I never sleep real good" -does take daytime nap(s) -uses 4 pillows: 1 between legs, hugs one, and 2 under her head/shoulders. O: Phone visit for post hospital discharge follow up. Spoke with patient. Alert, oriented, pleasant. Active with home health, through [facility], with initial visit being made on 08/03/20. Lives alone. . Reports overall condition as "okay", "better", "not doing a lot". Asking if PCP wants any labs drawn by home health? Daughter assists with housekeeping and transportation and grocery picker / packer. Medications: takes all medications as prescribed. and denies side effects -using inhalers and nebulizer as ordered -confirmed patient picked up and started the cipro and flagyl A: Patient Centered Prioritized Goals: Patient will have her bowel issues adddressed. Development of self - management action plan with patient/caregiver/ provider. Patient and caregiver demonstrate basic understanding of their disease process. Patient/ caregiver demonstrates adherence to treatment plan. Patient will have pain well managed. Identified Barriers: Lack of or limited access to reliable transportation, Lack of motivation and Older than 70 years FUNCTIONAL STATUS: [...] to communicate, understand instructions, process information. P: Corporate Legal Assistant Interventions: Established Self Management Action Plan Instructed on "call back instructions" if symptoms increase: such as increased shortness of breath/cough, fever/chills, green sputum, wheezing, increased swelling/edema, diarrhea/constipation, abdominal pain/cramping, bloody or black tarry stools, new/uncontrolled pain or any other changes in condition. Updated managing provider, per EPIC Reinforced sodium restriction Reinforced safety education / fall prevention Reinforced medication regimen - timing / dosing / purpose Med rec completed with patient. Med list updated. Confirmed pharmacy of choice as [facility] in [place]. Confirmed patient has already received the [id number] flu vaccine, and pneumonia vaccine is up to date. Flu vaccine received 06/22/20. Confirmed COPD Rescue Kit is in place - is antibiotics only. Does not need a refill. Confirmed 'as needed' order of lasix daily only for increased swelling. Message sent to PCP asking about labs for home health to draw? Travel screen completed. Reinforced coronavirus precautions of masking, hand washing, and social distancing. Enrolled in post discharge IVR calls weekly x 4, on at noon, starting 08/10/20. Confirmed upcoming appointments with eye doctor, for dexascan, with cardiology, and PCP. Reinforced role of briefcase sewer. Encouraged to call with any issues or concerns. Patient has CM direct phone number and contact information. PCP Notified of enrollment in CM/HM program: No SNP Member? No Re-evaluation of plan of care and progress towards goals achievement: LDL at goal of <100. A1c at goal of <7.5. BP at goal of <140/90. Taking medications as ordered, plans to keep appointments as scheduled. Satisfied with pain management. Family supportive. Receptive to participating with case management. Plan to call patient next week, via IVR, to reassess and update plan of care, instructed to call Corporate Legal Assistant or Primary Care Provider with change in symptoms or as needed before next follow-up Cici Gama RN Outpatient Corporate Legal Assistant documented in this encounter Plan of Treatment Upcoming Encounters Date Type Specialty Care Team Description 09/01/2020 Procedure Only Endoscopy Zulay Eagle, DO [address] [place] [address] [phone] 12/21/2020 Office Visit Internal Medicine Marcela Pinto MD [address] [place], [place] [address] [phone] Health Maintenance Due Date Last Done Comments Zoster Vaccines (2 of 3) 08/31/2012 07/06/2012 CKD PHOS USE SMARTSET 76458 03/22/2020 03/22/2019 DIABETES-EYE EXAM 08/10/2020 08/10/2019, , 08/04/2017, Additional history exists DIABETES-FOOT EXAM 10/19/2020 10/19/2019, 0 01/05/2019, 01/16/2018, Additional history exists DIABETES-URINE MICROALBUMIN EVERY 12 MONTHS 12/08/2020 12/08/2019, 10/30/2019, 07/09/2019, Additional history exists DIABETES-HGBA1C EVERY 6 MONTHS 12/26/2020 06/28/2020, 03/10/2020, 02/02/2020, Additional history exists CKD GFR USE SMARTSET 02421 01/17/202107/19, 06/28/2020, 05/27/2020, Additional history exists CKD HGB USE SMARTSET 23734 07/19/202107/19, 06/28/2020, 05/27/2020, Additional history exists COLONOSCOPY-EVERY 3 YRS AGES [...] home patient encounter- Primary Other specified examination Hospital discharge follow-up Other follow-up examination Diverticulitis of colon Diverticulitis of colon (without mention of hemorrhage) Ischemic colitis (HCC) Unspecified vascular insufficiency of intestine Irritable bowel syndrome with constipation Irritable bowel syndrome COPD, group B, 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 (HCC) Type 2 diabetes mellitus with hemoglobin A1c goal of less than 7.5% (HCC) Generalized osteoarthritis Generalized osteoarthrosis, unspecified site Nocturnal hypoxia Hypoxemia HTN, goal below 140/90 Unspecified essential hypertension Hyperlipidemia with target LDL less than 100 Other and unspecified hyperlipidemia documented in this encounter Advance Directives Documents on File Type Date 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
--- OUTSIDE RECORDS SUMMARY | 2023-06-18 03:20 | External Medical Summary | Summary of Care ---
Author Name Unknown Organization [place] [address] Care Team Providers Care Band Bias Machine Operator Name Role Phone Marcela Pinto MD Primary Care Provider + Reason for Visit * Reason Onset Date Comments case management 08/03/2020 Outpatient Testing 08/03/2020 Encounter Details Date Type Department Care Team Description 08/03/2020 Telephone General Internal Medicine [facility] [address] [place] [address] Marcela Pinto MD [address] [place], [place] [id number] case management; Outpatient Testing Allergies Active Allergy Reactions Severity Noted Date Comments Valsartan 07/10/2010 Enalapril 05/21/2006 Escitalopram Oxalate Nausea/vomiting 10/11/2009 Nauseated Iodinated Diagnostic Agents Nausea/vomiting 05/2010 IV Contrast Iodine Hives 12/18/2009 IV Contrast Lisinopril 05/21/2006 Metoprolol Tartrate 11/18/2006 Made pulse low [place] Oil-Black Currant-Vit E 07/10/2010 Verapamil 03/21/2004 Bupropion Hcl 10/30/2009 Makes pt sick in the stomach documented as of this encounter (statuses as of 08/07/2020) Medications Medication Sig Dispensed Refills Start Date [...] 300 Each 1 01/05/2020 Active Glucose Blood (CloudCover CONTOUR TEST) STRPIndications:Type 2 diabetes mellitus with [...] Active Additional Information Patient taking differently: 40 mg, One tablet in the morning and one or two tablets in the afternoon//on hold per cardiology, Reported on 06/22/2020 dilTIAZem HCl ER Beads 240 MG CP24 Take 240 mg by mouth. One tablet daily 0 Active Erythromycin 250 MG TBEC Takes before each meal 0 06/16/2020 Active promethazine (PHENERGAN) 25 MG Tablet Take [...] classification ([facility]) INHALE 1 PUFF BY MOUTH EVERY DAY 90 Each 3 07/02/2020 Active documented as of this encounter (statuses as of 08/07/2020) Active Problems Problem Noted Date Diabetes mellitus [...] as of this encounter (statuses as of 08/07/2020) Resolved Problems Problem Noted Date Resolved Date [...] Hypoxemia 10/08/2011 10/30/2015 Genetic Sleep Disorder Research Other*[id number] 07/25/2011 05/15/2016 Diverticulitis of colon 07/25/2011 01/06/20 [...] as of this encounter (statuses as of 08/07/2020) Immunizations Name Administration Dates Next Due Hepatitis [...] Telephone Encounter - Cici Gama RN - 08/07/2020 9:44 AM EDT Received reply back from PCP with lab orders. Called [facility], spoke with Lindsey at the main office, transferred to Chanda in the [place] office. Patient had not been scheduled until this week, Chanda will have her moved up sooner to do the lab testing. Faxed orders from PCP, and 2 overdue lab orders to [phone]. Fax confirmation received. * Telephone Encounter - Marcela Pinto MD - 08/04/2020 3:19 PM EDT Can get cbcd,Ferritin, serum iron screen. Order is in. Thanks. * Telephone Encounter - Cici Gama RN - 08/04/2020 2:08 PM EDT Patient asking if you want home health to draw any labs? Reports her Hgb on discharge was only 8.8. Please advise..... * Telephone Encounter - Jazmín oRsa OSA - 08/03/2020 4:42 PM EDT Telephone visit scheduled; pt aware * Telephone Encounter - Marcela Pinto MD - 08/03/2020 3:53 PM EDT It's okay to switch to phone appointment if she cannot come here in person or cannot do the video visit. This is going to be hospital follow-up so without reviewing her chart and without talking to the patient I do not know which blood work she require. * Telephone Encounter - Chantel Miranda LPN - 08/03/2020 11:10 AM EDT Pt calling she is unable to come to appt scheduled for hospital f/u on 08/08. She has another appt at that time. She has appt on the , and that week. Pt inquiring if phone visit could be done instead. Pt is unable to do a video visit. Also Pt's HH nurse is also there, she is inquiring if there are any labs they would like to have drawn. [facility] nurses. FAX [phone] Please advise. documented in this encounter Plan of Treatment Upcoming Encounters Date Type Specialty Care Team Description 08/08/2020 Telemedicine Internal Medicine Marcela Pinto MD [address] [place] [address] [phone] 08/08/2020 Imaging Radiology 09/01/2020 Procedure Only Endoscopy Zulay Eagle, DO [address] [place] [address] [phone] 12/21/2020 Office Visit Internal Medicine Marcela Pinto MD [address] [place] [address] [phone] Scheduled Orders Name Type Priority Associated Diagnoses Orde r Schedule IRON SCREEN, INCLUDING TIBC Lab Routine Iron deficiency anemia, unspecified iron deficiency anemia type Expected: 08/04/2020 (Approximate), Expires: 08/04/2021 CBC/DIFF Lab Routine Iron deficiency anemia, unspecified iron deficiency anemia type Expected: 08/04/2020 (Approximate), Expires: 08/04/2021 FERRITIN Lab Routine Iron deficiency anemia, unspecified iron deficiency anemia type Expected: 08/04/2020 (Approximate), Expires: 08/04/2021 Health Maintenance Due Date Last Done Comments Zoster Vaccines (2 of 3) 08/31/2012 07/06/2012 CKD PHOS USE SMARTSET 32109 03/22/2020 03/22/2019 DXA-EVERY 5 YRS-USE SMARTSET# 3348 TO ORDER 05/01/2020 05/01/2015, 06/19/2010, 06/19/2010, Additional history exists DIABETES-EYE EXAM 08/10/2020 08/10/2019, , 08/04/2017, Additional history exists DIABETES-FOOT EXAM 10/19/2020 10/19/2019, 0 01/05/2019, 01/16/2018, Additional history exists DIABETES-URINE MICROALBUMIN EVERY 12 MONTHS 12/08/2020 12/08/2019, 10/30/2019, 07/09/2019, Additional history exists DIABETES-HGBA1C EVERY 6 MONTHS 12/26/2020 06/28/2020, 03/10/2020, 02/02/2020, Additional history exists CKD GFR USE SMARTSET 26129 01/17/202107/19, 06/28/2020, 05/27/2020, Additional history exists CKD HGB USE SMARTSET 32959 07/19/202107/19, 06/28/2020, 05/27/2020, Additional history exists COLONOSCOPY-EVERY 3 YRS AGES 18-100 05/08/2023 05/08/2020, 02/28/2018, 06/05/2017, Additional history exists DTaP,Tdap,and Td Vaccines (2 - Td) 06/04/2028 06/04/2018, 02/28/2009 Pneumococcal Vaccine: 65+ Years Completed 03/28/2015, 05/21/2006 Influenza Vaccine (FLU shot) Completed 07/2020, 07/09/2019, 06/16/2018, Additional history exists MENINGOCOCCAL (MENACTRA/MENVEO) Aged Out No longer eligible based on patient's age to complete this topic documented as of this encounter Implants Not on filedocumented as of this encounter Visit Diagnoses Diagnosis Iron deficiency anemia, unspecified iron deficiency anemia type- Primary documented in this encounter Advance Directives Documents on File Type Date Recorded 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
--- OUTSIDE RECORDS SUMMARY | 2023-06-18 03:20 | External Medical Summary | Summary of Care ---
Author Name Unknown Organization [place] [address] Care Team Providers Care Donor Processor Name Role Phone Marcela Pinto MD Primary Care Provider [phone] Encounter Details Date Type Department Care Team Description 07/28/2020 Scan Encounter Unspecified Department <No scans attached> Allergies Active Allergy Reactions Severity Noted Date Comments Valsartan 07/10/2010 Enalapril 05/21/2006 Escitalopram Oxalate Nausea/vomiting 10/11/2009 Nauseated Iodinated Diagnostic Agents Nausea/vomiting 05/2010 IV Contrast Iodine Hives 12/18/2009 IV Contrast Lisinopril 05/21/2006 Metoprolol Tartrate 11/18/2006 Made pulse low [place] Oil-Black Currant-Vit E 07/10/2010 Verapamil 03/21/2004 Bupropion Hcl 10/30/2009 Makes pt sick in the stomach documented as of this encounter (statuses as of 07/31/2020) Medications Medication Sig Dispensed Refills Start Date [...] WITHIN [facility]) USE TO TEST BLOOD SUGAR 3 TIMES [...] omeprazole (PRILOSEC) 20 MG CPDRIndications:Isch emic colitis ([facility]) TAKE 1 CAPSULE BY MOUTH TWICE A [...] :COPD, group B, 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 ([facility]) INHALE 1 PUFF BY MOUTH EVERY DAY 90 Each 3 07/02/2020 Active documented as of this encounter (statuses as of 07/31/2020) Active Problems Problem Noted Date Diabetes mellitus [...] as of this encounter (statuses as of 07/31/2020) Resolved Problems Problem Noted Date Resolved Date [...] Hypoxemia 10/08/2011 10/30/2015 Genetic Sleep Disorder Research Other*[id number] 07/25/2011 05/15/2016 Diverticulitis of colon 07/25/2011 01/06/20 [...] as of this encounter (statuses as of 07/31/2020) Immunizations Name Administration Dates Next Due Hepatitis [...] Date Type Specialty Care Team Description 08/08/2020 Imaging Radiology 09/01/2020 Procedure Only Endoscopy Zulay Eagle, DO [address] [facility] [place] [address] [phone] 12/21/2020 Office Visit Internal Medicine Marcela Pinto MD [address] [place] [address] [phone] Health Maintenance Due Date Last Done Comments Zoster Vaccines (2 of 3) 08/31/2012 07/06/2012 CKD PHOS USE SMARTSET 61419 03/22/2020 03/22/2019 DXA-EVERY 5 YRS-USE SMARTSET# 3348 TO ORDER 05/01/2020 05/01/2015, 06/19/2010, 06/19/2010, Additional history exists DIABETES-EYE EXAM 08/10/2020 08/10/2019, , 08/04/2017, Additional history exists DIABETES-FOOT EXAM 10/19/2020 10/19/2019, 0 01/05/2019, 01/16/2018, Additional history exists DIABETES-URINE MICROALBUMIN EVERY 12 MONTHS 12/08/2020 12/08/2019, 10/30/2019, 07/09/2019, Additional history exists DIABETES-HGBA1C EVERY 6 MONTHS 12/26/2020 06/28/2020, 03/10/2020, 02/02/2020, Additional history exists CKD GFR USE SMARTSET 84969 01/17/202107/19, 06/28/2020, 05/27/2020, Additional history exists CKD HGB USE SMARTSET 25933 07/19/202107/19, 06/28/2020, 05/27/2020, Additional history exists COLONOSCOPY-EVERY [...] Documents on File Type Date 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
--- OUTSIDE RECORDS SUMMARY | 2023-06-18 03:20 | External Medical Summary | Summary of Care ---
Author Name Unknown Organization [place] [address] Care Team Providers Care Automatic Clipper And Stripper Name Role Phone Marcela Pinto MD Primary Care Provider + Reason for Visit * Reason Comments Acute Encounter Details Date Type Department Care Team Description 08/08/2020 Telemedicine General Internal Medicine [facility] [address] [place], [place] [id number] Marcela Pinto MD [address] [place], [place] [id number] Diverticulitis of colon*; Diabetes mellitus with stage 3 chronic kidney disease (HCC) Allergies Active Allergy Reactions Severity Noted Date Comments Valsartan 07/10/2010 Enalapril 05/21/2006 Escitalopram Oxalate Nausea/vomiting 10/11/2009 Nauseated Iodinated Diagnostic Agents Nausea/vomiting 05/2010 IV Contrast Iodine Hives 12/18/2009 IV Contrast Lisinopril 05/21/2006 Metoprolol Tartrate 11/18/2006 Made pulse low [place] Oil-Black Currant-Vit E 07/10/2010 Verapamil 03/21/2004 Bupropion Hcl 10/30/2009 Makes pt sick in the stomach documented as of this encounter (statuses as of 08/08/2020) Medications Medication Sig Dispensed Refills Start Date [...] 300 Each 1 0 Active Glucose Blood (Zero [employer] Food CONTOUR TEST) STRPIndications:Typ e 2 diabetes mellitus with hemoglobin A1c goal of less than 7.0% ([facility]) USE TO TEST BLOOD SUGAR 3 TIMES [...] A DAY 12 g 3 0 Active atorvaSTATin (LIPITOR) 40 MG TabletIndications:H yperlipidemia with target LDL less than 100 TAKE 1 TABLET BY MOUTH EVERY DAY 90 Tab 1 0 Active omeprazole (PRILOSEC) 20 MG CPDRIndications:Isc hemic colitis (HCC) TAKE 1 CAPSULE BY MOUTH TWICE A DAY 180 Cap 1 0 Active zafirlukast (ACCOLATE) 20 MG TabletIndications:A sthma with severity to be determined TAKE 1 TABLET BY MOUTH EVERY DAY 90 Tab 1 0 Active Potassium Chloride Annalisa ER [...] hours as needed for Nausea. 0 Active HYDROcodone-acetami nophen 5-325 mg per tab 5-325 MG per tabletIndications:G eneralized osteoarthritis Take 1 Tab by mouth every 6 hours as needed for Pain, Mild. 120 Tab 0 0 Active ondansetron ODT (ZOFRAN) [address] 8 mg on tongue every 8 hours as needed for Nausea. dissolve on tongue. 0 Active doxycycline 100 MG Tablet Take 100 mg by mouth 2 times a day. RESCUE KIT: Take for Colds. 0 Active Incruse Ellipta 62.5 MCG/INH Inhalation Aerosol Powder Breath ActivatedIndication s:COPD, group B, 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 ([facility]) INHALE 1 PUFF BY MOUTH EVERY DAY [...] mg by mouth daily. 0 0 Active Erythromycin 250 MG TBEC Takes before each meal 0 0 08/08/20 20 Discontinued documented as of this encounter (statuses as of 08/08/2020) Active Problems Problem Noted Date Diabetes mellitus [...] as of this encounter (statuses as of 08/08/2020) Resolved Problems Problem Noted Date Resolved Date [...] Hypoxemia 10/08/2011 10/30/2015 Genetic Sleep Disorder Research Other*[id number] 07/25/2011 05/15/2016 Diverticulitis of colon 07/25/2011 01/06/20 [...] as of this encounter (statuses as of 08/08/2020) Immunizations Name Administration Dates Next Due Hepatitis [...] Reading Time Taken Comments Blood Pressure 120/70 08/08/2020 12:45 PM EDT pe r patient. Pulse - - Temperature - - Respiratory Rate - - Oxygen Saturation - - Inhaled Oxygen Concentration - - Weight 106.6 kg (235 lb) 08/08/2020 12:45 PM EDT Height - - Body Mass Index 39.11 06/22/2020 2:46 PM EDT documented in this encounter Progress Notes * Marcela Pinto MD - 08/08/2020 12:40 PM EDT HPI: Nina Harrington is a 79 year old female who presents with: No chief complaint on file. After connecting to the patient via telephone, the patient was identified by name and date of . Patient was then informed that this was a telephone call only visit. The patient agreed to participate. Visit Disposition: Routine follow-up Total call duration was 5 minutes. Pt is here for the hospital follow up. Chart reviewed from the hospital including admission note, Hand P, consult notes, labs, EKG, imaging and discharge note including discharge meds. Patient states she is feeling better since went back home. Pt was admitted to the hospital on 07/30/20 and was discharged on 07/31/20 . Admission Diagnosis : Acute diverticulitis. Patient was admitted in the hospital for IV hydration, IV antibiotic and was seen by GI Dr. Eagle. After stabilization patient was discharged home on oralantibiotics Cipro and Flagyl. Patient states she has upcoming appointment with GI and she is also scheduled for upper endoscopy. Down to the road for frequent episodes she will be referred to be seen by Colorectal surgeon. Discussed the hydration, balanced diet. Denies any fever, chills, diarrhea, constipation, blood in the stool, abdominal keep pain, nausea, vomiting. Does sleep okay at night. States overall she feels better. Pt has been followed up by disease case manager rn and specialists. 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 Allergic rhinitis J30.9 Nocturnal hypoxia G47.34 Sleep apnea, obstructive G47.33 ACEI/ARB contraindicated [id number] HTN, goal below 140/90 I10 Hyperlipidemia with target LDL less than 100 E78.5 Controlled substance agreement signed Z79.899 Type 2 diabetes mellitus with hemoglobin A1c goal of less than 7.5% ([facility]) E11.9 Hypercalcemia E83.52 Elevated plasma metanephrines R79.89 Irritable bowel syndrome with constipation K58.1 Ischemic colitis ([facility]) K55.9 HECTOR (generalized anxiety disorder) F41.1 COPD, group B, 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 ([facility]) J44.9 Morbid obesity with BMI of 40.0-44.9, adult ([facility]) E66.01, Z68.41 Gastro-esophageal reflux disease without esophagitis K21.9 Diabetes mellitus with stage 3 chronic kidney disease ([facility]) E11.22, N18.30 Current Outpatient Medications Medication Sig Dispense Refill Incruse Ellipta 62.5 MCG/INH Inhalation Aerosol Powder Breath Activated INHALE 1 PUFF BY MOUTH EVERY DAY 90 Each 3 doxycycline 100 MG Tablet Take 100 mg by mouth 2 times a day. RESCUE KIT: Take for Colds. HYDROcodone-acetaminophen 5-325 mg per tab 5-325 MG per tablet Take 1 Tab by mouth every 6 hours asneeded for Pain, Mild. 120 Tab 0 ondansetron ODT (ZOFRAN) [address] 8 mg on tongue every 8 hours as needed for Nausea. dissolve on tongue. dilTIAZem HCl ER Beads 240 MG CP24 Take 240 mg by mouth. One tablet daily Erythromycin 250 MG TBEC Takes before each meal promethazine (PHENERGAN) 25 MG Tablet Take 25 mg by mouth every 6 hours as needed for Nausea. furosemide (LASIX) 40 MG Tablet TAKE 2 TABLETS BY MOUTH TWICE A DAY. TAKE BEFORE A MEAL (Patient taking differently: 40 mg. One tablet in the morning and one or two tablets in the afternoon//on hold per cardiology) 360 Tab 1 dicyclomine (BENTYL) 20 MG Tablet Take 1 Tab by mouth daily. 90 Tab 2 Potassium Chloride Annalisa ER (KLOR-CON M20) 20 MEQ TBCR Take 1 Tab by mouth daily. 90 Tab 1 zafirlukast (ACCOLATE) 20 MG Tablet TAKE 1 TABLET BY MOUTH EVERY DAY 90 Tab 1 omeprazole (PRILOSEC) 20 MG CPDR TAKE 1 CAPSULE BY MOUTH TWICE A DAY 180 Cap 1 atorvaSTATin (LIPITOR) 40 MG Tablet TAKE 1 TABLET BY MOUTH EVERY DAY 90 Tab 1 COMBIVENT RESPIMAT 20-100 MCG/ACT Inhaler TAKE 1 PUFF BY MOUTH 4 TIMES A DAY 12 g 3 Blood Glucose Monitoring Suppl (CONTOUR MONITOR) w/Device KIT USE TO TEST BLOOD SUGAR 3 TIMES A DAYFOR DIAGNOSIS CODE OF E11.9 1 Kit 0 Glucose Blood (YEIMY CONTOUR TEST) STRP USE TO TEST BLOOD SUGAR 3 TIMES A DAY FOR DIAGNOSIS CODE OFE11.9 300 Strip 1 Lancets MISC Use as directed. USE TO [...] differently: Take 17 g by mouth daily. 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 OBJECTIVE: Blood pressure 120/70, weight 106.6 kg (235 lb). PHYSICAL EXAM: ASSESSMENT AND PLAN: Diverticulitis of colon (Primary) Diet, hydration discussed with the patient. Keep follow-up with GI. He keep appointment for upper endoscopy. Finish Goyo. Diabetes mellitus with stage 3 chronic kidney disease (HCC) Follow Up: Return in about 3 months (around 11/08/2020). documented in this encounter Nursing Notes * Renetta Gu LPN - 08/08/2020 12:41 PM EDT Here for follow up, is on ATB for diverticulitis. [facility]. documented in this encounter Plan of Treatment Upcoming Encounters Date Type Specialty Care Team Description 08/08/2020 Imaging Radiology 09/01/2020 Procedure Only Endoscopy Zulay Eagle, DO [address] [facility] [place] [address] [phone] 12/21/2020 Office Visit Internal Medicine Marcela Pinto MD [address] [place] [address] [phone] Health Maintenance Due Date Last Done Comments Zoster Vaccines (2 of 3) 08/31/2012 07/06/2012 CKD PHOS USE SMARTSET 49660 03/22/2020 03/22/2019 Dexa Scan 05/01/2020 05/01/2015, 04/2010, 06/19/2010, Additional history exists DIABETES-EYE EXAM 08/10/2020 08/10/2019, , 08/04/2017, Additional history exists DIABETES-FOOT EXAM 10/19/2020 10/19/2019, 0 01/05/2019, 01/16/2018, Additional history exists DIABETES-URINE MICROALBUMIN EVERY 12 MONTHS 12/08/2020 12/08/2019, 10/30/2019, 07/09/2019, Additional history exists DIABETES-HGBA1C EVERY 6 MONTHS 12/26/2020 06/28/2020, 03/10/2020, 02/02/2020, Additional history exists CKD GFR USE SMARTSET 21205 01/17/202107/19, 06/28/2020, 05/27/2020, Additional history exists CKD HGB USE SMARTSET 22652 07/19/202107/19, 06/28/2020, 05/27/2020, Additional history exists COLONOSCOPY-EVERY [...] Diverticulitis of colon (without mention of hemorrhage) Diabetes mellitus with stage 3 chronic kidney disease (HCC) Type II or unspecified type diabetes mellitus with renal manifestations, not stated as uncontrolled documented in this encounter Advance Directives Documents on File Type Date Recorded Patient Case Investigator 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
--- OUTSIDE RECORDS SUMMARY | 2023-06-18 03:20 | External Medical Summary | Summary of Care ---
Author Name Unknown Organization [place] [address] Care Team Providers Care Powder Expert Name Role Phone Marcela Pinto MD Primary Care Provider [phone] Encounter Details Date Type Department Care Team Description 07/28/2020 Scan Encounter Unspecified Department <No scans attached> Allergies Active Allergy Reactions Severity Noted Date Comments Valsartan 07/10/2010 Enalapril 05/21/2006 Escitalopram Oxalate Nausea/vomiting 10/11/2009 Nauseated Iodinated Diagnostic Agents Nausea/vomiting 05/2010 IV Contrast Iodine Hives 12/18/2009 IV Contrast Lisinopril 05/21/2006 Metoprolol Tartrate 11/18/2006 Made pulse low [place] Oil-Black Currant-Vit E 07/10/2010 Verapamil 03/21/2004 Bupropion [...] moderate ([facility]) TAKE 1 PUFF BY MOUTH 4 TIMES A DAY 12 g 3 01/14/2020 Active atorvaSTATin (LIPITOR) 40 MG TabletIndications:Hy perlipidemia with target LDL less than 100 TAKE 1 TABLET BY MOUTH EVERY DAY 90 Tab 1 02/28/2020 Active omeprazole (PRILOSEC) 20 MG CPDRIndications:Isch emic colitis ([facility]) TAKE 1 CAPSULE BY MOUTH TWICE [...] Hypoxemia 10/08/2011 10/30/2015 Genetic Sleep Disorder Research Other*[id number] 07/25/2011 05/15/2016 Diverticulitis of colon 07/25/2011 01/06/20 [...] Procedure Only Endoscopy Zulay Eagle, DO [address] [facility] [place] [address] [phone] 12/21/2020 Office Visit Internal Medicine Marcela Pinto MD [address] [facility] [place] [address] [phone] Health Maintenance Due Date Last Done Comments Zoster Vaccines (2 of 3) 08/31/2012 07/06/2012 CKD PHOS USE SMARTSET 16663 03/22/2020 03/22/2019 DXA-EVERY 5 YRS-USE SMARTSET# 3348 TO ORDER 05/01/2020 05/01/2015, 06/19/2010, 06/19/2010, Additional history exists DIABETES-EYE EXAM 08/10/2020 08/10/2019, , 08/04/2017, Additional history exists DIABETES-FOOT EXAM 10/19/2020 10/19/2019, 0 01/05/2019, 01/16/2018, Additional history exists DIABETES-URINE MICROALBUMIN EVERY 12 MONTHS 12/08/2020 12/08/2019, 10/30/2019, 07/09/2019, Additional history exists DIABETES-HGBA1C EVERY 6 MONTHS 12/26/2020 06/28/2020, 03/10/2020, 02/02/2020, Additional history exists CKD GFR USE SMARTSET 72249 01/17/202107/19, 06/28/2020, 05/27/2020, Additional history exists CKD HGB USE SMARTSET 23009 07/19/202107/19, 06/28/2020, 05/27/2020, Additional history exists COLONOSCOPY-EVERY [...] Documents on File Type Date Recorded Patient Dural Mechanic 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 Advanced Directive Advanced Directive
--- OUTSIDE RECORDS SUMMARY | 2023-06-18 03:20 | External Medical Summary | Summary of Care ---
Author Name Unknown Organization [place] [address] Care Team Providers Care Aircraft Inspection Record Clerk Name Role Phone Marcela Pinto MD Primary Care Provider + Encounter Details Date Type Department Care Team Description 08/11/2020 Orders Only General Internal Medicine [facility] [address] [place] [address] Marcela Pinto MD [address] [place] [address] [phone] Allergies Active Allergy Reactions Severity Noted Date Comments Valsartan 07/10/2010 Enalapril 05/21/2006 Escitalopram Oxalate Nausea/vomiting 10/11/2009 Nauseated Iodinated Diagnostic Agents Nausea/vomiting 05/2010 IV Contrast Iodine Hives 12/18/2009 IV Contrast Lisinopril 05/21/2006 Metoprolol Tartrate 11/18/2006 Made pulse low [place] Oil-Black Currant-Vit E 07/10/2010 Verapamil 03/21/2004 Bupropion Hcl 10/30/2009 Makes pt sick in the stomach documented as of this encounter (statuses as of 08/11/2020) Medications Medication Sig Dispensed Refills Start Date [...] 2017 classification ([facility]) INHALE 1 PUFF BY MOUTH [...] mg by mouth daily. 0 07/26/2020 Active documented as of this encounter (statuses as of 08/11/2020) Active Problems Problem Noted Date Diabetes mellitus [...] as of this encounter (statuses as of 08/11/2020) Resolved Problems Problem Noted Date Resolved Date [...] Hypoxemia 10/08/2011 10/30/2015 Genetic Sleep Disorder Research Other*[id number] 07/25/2011 05/15/2016 Diverticulitis of colon 07/25/2011 01/06/20 [...] as of this encounter (statuses as of 08/11/2020) Immunizations Name Administration Dates Next Due Hepatitis [...] Only Endoscopy Zulay Eagle, DO [address] [place] [address] [phone] 12/21/2020 Office Visit Internal Medicine Marcela Pinto MD [address] [facility] [place] [address] [phone] Health Maintenance Due Date Last Done Comments Zoster Vaccines (2 of 3) 08/31/2012 07/06/2012 CKD PHOS USE SMARTSET 98322 03/22/2020 03/22/2019 DIABETES-FOOT EXAM 10/19/2020 10/19/2019, 0 01/05/2019, 01/16/2018, Additional history exists DIABETES-URINE MICROALBUMIN EVERY 12 MONTHS 12/08/2020 12/08/2019, 10/30/2019, 07/09/2019, Additional history exists DIABETES-HGBA1C EVERY 6 MONTHS 12/26/2020 08/10/2020, 06/28/2020, 03/10/2020, Additional history exists CKD GFR USE SMARTSET 06510 01/17/202107/19, 06/28/2020, 05/27/2020, Additional history exists CKD HGB USE SMARTSET 92439 07/19/202107/19, 06/28/2020, 05/27/2020, Additional history exists DIABETES-EYE [...] Priority Date/Time Associated Diagnosis Comments CHEMISTRY-OUTSIDE Routine 08/10/2020 documented in this encounter Results * CHEMISTRY-OUTSIDE (08/10/2020) CREATININE-OUTSIDE LAB OUTSIDE LAB (SEE SCANNED REPORT) [...] LAB OUTSIDE LAB (SEE SCANNED REPORT) HEMOGLOBIN, [id number] LAB 6.0(A) 3.8 - 5.6 % OUTSIDE LAB (SEE SCANNED REPORT) PHOSPHORUS-OUTSIDE LAB OUTSIDE LAB (SEE SCANNED REPORT) PTH-OUTSIDE LAB OUTSIDE LAB (SEE SCANNED REPORT) MICROALBUMIN RATIO-OUTSIDE LAB OUTSIDE LAB (SEE SCANNED REPORT) PROTEIN, UA-OUTSIDE LAB OUTSIDE LAB (SEE SCANNED REPORT) HEMOGLOBIN-OUTSIDE LAB OUTSIDE LAB (SEE SCANNED REPORT) CHEMISTRY COMMENT-OUTSIDE LAB Comment:SEE SCAN - HBA1C, IRON/TIBC, FERRITIN, VIT B12 OUTSIDE LAB (SEE SCANNED REPORT) Specimen Narrative Performed At OUTSIDE LAB (SEE SCANNED REPORT) documented in this encounter Advance Directives Documents on File Type Date Recorded Patient Government Contracts Manager 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
--- OUTSIDE RECORDS SUMMARY | 2023-06-18 03:20 | External Medical Summary | Summary of Care ---
Author Name Unknown Organization [place] [address] Care Team Providers Care Show Host/Hostess Name Role Phone Marcela Pinto MD Primary Care Provider + Encounter Details Date Type Department Care Team Description 08/10/2020 Orders Only General Internal Medicine [facility] [address] [place] [address] Marcela Pinto MD [address] [facility] [place] [address] [phone] Allergies Active Allergy Reactions Severity Noted Date Comments Valsartan 07/10/2010 Enalapril 05/21/2006 Escitalopram Oxalate Nausea/vomiting 10/11/2009 Nauseated Iodinated Diagnostic Agents Nausea/vomiting 05/2010 IV Contrast Iodine Hives 12/18/2009 IV Contrast Lisinopril 05/21/2006 Metoprolol Tartrate 11/18/2006 Made pulse low [place] Oil-Black Currant-Vit E 07/10/2010 Verapamil 03/21/2004 Bupropion Hcl 10/30/2009 Makes pt sick in the stomach documented as of this encounter (statuses as of 08/10/2020) Medications Medication Sig Dispensed Refills Start Date [...] GOLD 2017 classification ([facility]) INHALE 1 PUFF BY MOUTH EVERY DAY [...] as of this encounter (statuses as of 08/10/2020) Active Problems Problem Noted Date Diabetes mellitus [...] as of this encounter (statuses as of 08/10/2020) Resolved Problems Problem Noted Date Resolved Date [...] Hypoxemia 10/08/2011 10/30/2015 Genetic Sleep Disorder Research Other*[id number] 07/25/2011 05/15/2016 Diverticulitis of colon 07/25/2011 01/06/20 [...] as of this encounter (statuses as of 08/10/2020) Immunizations Name Administration Dates Next Due Hepatitis [...] Eagle, DO [address] [place] [address] [phone] 12/21/2020 Office Visit Internal Medicine Marcela Pinto MD [address] [facility] [place] [address] [phone] Health Maintenance Due Date Last Done Comments Zoster Vaccines (2 of 3) 08/31/2012 07/06/2012 CKD PHOS USE SMARTSET 98311 03/22/2020 03/22/2019 DIABETES-FOOT EXAM 10/19/2020 10/19/2019, 0 01/05/2019, 01/16/2018, Additional history exists DIABETES-URINE MICROALBUMIN EVERY 12 MONTHS 12/08/2020 12/08/2019, 10/30/2019, 07/09/2019, Additional history exists DIABETES-HGBA1C EVERY 6 MONTHS 12/26/2020 06/28/2020, 03/10/2020, 02/02/2020, Additional history exists CKD GFR USE SMARTSET 91229 01/17/202107/19, 06/28/2020, 05/27/2020, Additional history exists CKD HGB USE SMARTSET 78666 07/19/202107/19, 06/28/2020, 05/27/2020, Additional history exists DIABETES-EYE EXAM 08/10/2021 08/07/2020, , 09/14/2018, Additional history exists COLONOSCOPY-EVERY [...] Associated Diagnosis Comments DIABETIC EYE EXAM Routine 08/07/2020 documented in this encounter Results * DIABETIC EYE EXAM (08/07/2020) Specimen Narrative Performed At OUTSIDE LAB (SEE SCANNED REPORT) documented in this encounter Advance Directives Documents on File Type Date Recorded Patient Optometrist Owner 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
--- OUTSIDE RECORDS SUMMARY | 2023-06-18 03:20 | External Medical Summary | Summary of Care ---
Author Name Unknown Organization [facility] [address] Care Team Providers Care Eating Disorder Psychologist Name Role Phone Alex Pinto MD Primary Care Provider + Reason for Visit * Reason Onset Date Comments Medication Refill 08/15/2020 Encounter Details Date Type Department Care Team Description 08/15/2020 Refill General Internal Medicine [facility] [address] [place], [place] [id number] Alex Pinto MD [address] [place], [place] [id number] GENERAL OSTEOARTHROSIS Allergies Active Allergy Reactions Severity Noted Date Comments Valsartan 07/10/2010 Enalapril 05/21/2006 Escitalopram Oxalate Nausea/vomiting 10/11/2009 Nauseated Iodinated Diagnostic Agents Nausea/vomiting 05/2010 IV Contrast Iodine Hives 12/18/2009 IV Contrast Lisinopril 05/21/2006 Metoprolol Tartrate 11/18/2006 Made pulse low [place] Oil-Black Currant-Vit E 07/10/2010 Verapamil 03/21/2004 Bupropion Hcl 10/30/2009 Makes pt sick in the stomach documented as of this encounter (statuses as of 08/15/2020) Medications Medication Sig Dispensed Refills Start Date [...] 300 Each 1 01/05/2020 Active Glucose Blood ([employer] CONTOUR TEST) STRPIndications:Typ e 2 diabetes [...] 3 01/14/2020 Active atorvaSTATin (LIPITOR) 40 MG TabletIndications:H yperlipidemia with target LDL less than 100 TAKE 1 TABLET BY MOUTH EVERY DAY 90 Tab 1 02/28/2020 Active omeprazole (PRILOSEC) 20 MG CPDRIndications:Isc hemic [...] classification ([facility]) INHALE 1 PUFF BY MOUTH EVERY DAY [...] EVERY DAY 90 Tab 3 08/15/2020 Active HYDROcodone-Acetami nophen 5-325 MG Oral TabletIndications:G eneralized osteoarthritis Take 1 Tab by mouth every 6 hours as needed for Pain, Mild. 120 Tab 0 08/15/2020 Active HYDROcodone-acetami nophen 5-325 mg per tab 5-325 MG per tabletIndications:G eneralized osteoarthritis Take 1 Tab by mouth every 6 hours as needed for Pain, Mild. 120 Tab 0 06/28/2020 0 Discontinu ed(Refill) documented as of this encounter (statuses as of 08/15/2020) Active Problems Problem Noted Date Diabetes mellitus [...] as of this encounter (statuses as of 08/15/2020) Resolved Problems Problem Noted Date Resolved Date [...] Hypoxemia 10/08/2011 10/30/2015 Genetic Sleep Disorder Research Other*[id number] 07/25/2011 05/15/2016 Diverticulitis of colon 07/25/2011 01/06/20 [...] as of this encounter (statuses as of 08/15/2020) Immunizations Name Administration Dates Next Due Hepatitis [...] Telephone Encounter - Alex Pinto MD - 08/15/2020 4:09 PM EST Signed Prescriptions: Disp Refills HYDROcodone-Acetaminophen 5-325 MG Oral Ta*120 Tab0 Sig: Take 1 Tab by mouth every 6 hours as needed for Pain, Mild.Authorizing Provider: ALEX PINTO------ * Telephone Encounter - Nicole Saeed LPN - 08/15/2020 11:47 AM EST Pending Prescriptions: Disp Refills HYDROcodone-Acetaminophen 5-325 MG Oral T*120 Tab0 Sig: Take 1 Tab by mouth every 6 hours as needed for Pain, Mild. 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 Allergic rhinitis J30.9 Nocturnal hypoxia G47.34 Sleep apnea, obstructive G47.33 ACEI/ARB contraindicated [id number] HTN, goal below 140/90 I10 Hyperlipidemia with target LDL less than 100 E78.5 Controlled substance agreement signed Z79.899 Type 2 diabetes mellitus with hemoglobin A1c goal of less than 7.5% ([facility]) E11.9 Hypercalcemia E83.52 Elevated plasma metanephrines R79.89 Irritable bowel syndrome with constipation K58.1 Ischemic colitis ([facility]) K55.9 HECTOR (generalized anxiety disorder) F41.1 COPD, group B, 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 ([facility]) J44.9 Morbid obesity with BMI of 40.0-44.9, adult ([facility]) E66.01, Z68.41 Gastro-esophageal reflux disease without esophagitis K21.9 Diabetes mellitus with stage 3 chronic kidney disease ([facility]) E11.22, N18.30 Labs: CREATININE-OUTSIDE LAB(MG/DL) Jessica Dt/Tm [...] 05/27/20 15 FINAL Hemoglobin AIC Results: HEMOGLOBIN, Y5X-WFRHSCG LAB(%) Jessica Dt/Tm Resulted Value Status 08/10/20 08/11/20 6.0* FINAL 06/28/20 06/29/20 6.0* FINAL 03/10/20 03/10/20 7.0* FINAL documented in this encounter Plan of Treatment Upcoming Encounters Date Type Specialty Care Team Description 09/01/2020 Procedure Only Endoscopy Zulay Eagle, [address] [facility] [place] [address] 12/21/2020 Office Visit Internal Medicine Alex Pinto MD [address] [place], [place] [address] [phone] Health Maintenance Due Date Last Done Comments Zoster Vaccines (2 of 3) 08/31/2012 07/06/2012 CKD PHOS USE SMARTSET 50960 03/22/2020 03/22/2019 DIABETES-FOOT EXAM 10/19/2020 10/19/2019, 0 01/05/2019, 01/16/2018, Additional history exists DIABETES-URINE MICROALBUMIN EVERY 12 MONTHS 12/08/2020 12/08/2019, 10/30/2019, 07/09/2019, Additional history exists CKD GFR USE SMARTSET 54674 01/17/202107/19, 06/28/2020, 05/27/2020, Additional history exists DIABETES-HGBA1C EVERY 6 MONTHS 02/08/2021 08/10/2020, 06/28/2020, 03/10/2020, Additional history exists CKD HGB USE SMARTSET 24766 07/19/202107/19, 06/28/2020, 05/27/2020, Additional history exists DIABETES-EYE [...] Documents on File Type Date Recorded Patient Press Secretary 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
--- OUTSIDE RECORDS SUMMARY | 2023-06-18 03:20 | External Medical Summary | Summary of Care ---
Author Name Unknown Organization [place] [address] Care Team Providers Care Spine Surgeon Name Role Phone Marcela Pinto MD Primary Care Provider [phone] Encounter Details Date Type Department Care Team Description 07/29/2020 Scan Encounter Unspecified Department <No scans attached> Allergies Active Allergy Reactions Severity Noted Date Comments Valsartan 07/10/2010 Enalapril 05/21/2006 Escitalopram Oxalate Nausea/vomiting 10/11/2009 Nauseated Iodinated Diagnostic Agents Nausea/vomiting 05/2010 IV Contrast Iodine Hives 12/18/2009 IV Contrast Lisinopril 05/21/2006 Metoprolol Tartrate 11/18/2006 Made pulse low [place] Oil-Black Currant-Vit E 07/10/2010 Verapamil 03/21/2004 Bupropion [...] of less than 7.0% ([facility]) USE TO TEST BLOOD SUGAR 3 TIMES A DAY FOR DIAGNOSIS CODE OF E11.9 300 Strip 1 01/05/2020 Active Blood Glucose Monitoring Suppl (CONTOUR MONITOR) w/Device KIT USE TO TEST BLOOD SUGAR 3 TIMES A DAY FOR DIAGNOSIS CODE OF E11.9 1 Kit 0 01/05/2020 Active COMBIVENT RESPIMAT 20-100 MCG/ACT InhalerIndications:A sthma with severity to be determined,COPD, moderate ([facility]) TAKE 1 PUFF BY MOUTH 4 TIMES A DAY 12 g 3 01/14/2020 Active atorvaSTATin (LIPITOR) 40 MG TabletIndications:Hy perlipidemia with target LDL less than 100 TAKE 1 TABLET BY MOUTH EVERY DAY 90 Tab 1 02/28/2020 Active omeprazole (PRILOSEC) 20 MG CPDRIndications:Isch emic colitis ([facility]) TAKE 1 CAPSULE BY MOUTH [...] :COPD, group B, 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 ([facility]) INHALE 1 PUFF BY MOUTH [...] Hypoxemia 10/08/2011 10/30/2015 Genetic Sleep Disorder Research Other*[id number] 07/25/2011 05/15/2016 Diverticulitis of colon 07/25/2011 01/06/20 [...] Procedure Only Endoscopy Zulay Eagle, DO [address] [facility] [place] [address] [phone] 12/21/2020 Office Visit Internal Medicine Marcela Pinto MD [address] [place] [address] [phone] Health Maintenance Due Date Last Done Comments Zoster Vaccines (2 of 3) 08/31/2012 07/06/2012 CKD PHOS USE SMARTSET 48711 03/22/2020 03/22/2019 DXA-EVERY 5 YRS-USE SMARTSET# [id number] TO ORDER 05/01/2020 05/01/2015, 06/19/2010, 06/19/2010, Additional history exists DIABETES-EYE EXAM 08/10/2020 08/10/2019, , 08/04/2017, Additional history exists DIABETES-FOOT EXAM 10/19/2020 10/19/2019, 0 01/05/2019, 01/16/2018, Additional history exists DIABETES-URINE MICROALBUMIN EVERY 12 MONTHS 12/08/2020 12/08/2019, 10/30/2019, 07/09/2019, Additional history exists DIABETES-HGBA1C EVERY 6 MONTHS 12/26/2020 06/28/2020, 03/10/2020, 02/02/2020, Additional history exists CKD GFR USE SMARTSET 11191 01/17/202107/19, 06/28/2020, 05/27/2020, Additional history exists CKD HGB USE SMARTSET 58226 07/19/202107/19, 06/28/2020, 05/27/2020, Additional history exists COLONOSCOPY-EVERY [...] Documents on File Type Date Recorded Patient Helper Electrical 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 Advanced Directive Advanced Directive
--- OUTSIDE RECORDS SUMMARY | 2023-06-18 03:20 | External Medical Summary | Summary of Care ---
Author Name Unknown Organization [place] [address] Care Team Providers Care Roentgenology Teacher Name Role Phone Alex Pinto MD Primary Care Provider + Reason for Visit * Reason Comments eRx-Medication Refill Encounter Details Date Type Department Care Team Description 08/13/2020 Refill General Internal Medicine [facility] [address] [place], [place] [id number] Alex Pinto MD [address] [place] [address] [phone] Asthma with severity to be determined Allergies Active Allergy Reactions Severity Noted Date Comments Valsartan 07/10/2010 Enalapril 05/21/2006 Escitalopram Oxalate Nausea/vomiting 10/11/2009 Nauseated Iodinated Diagnostic Agents Nausea/vomiting 05/2010 IV Contrast Iodine Hives 12/18/2009 IV Contrast Lisinopril 05/21/2006 Metoprolol Tartrate 11/18/2006 Made pulse low [place] Oil-Black Currant-Vit E 07/10/2010 Verapamil 03/21/2004 Bupropion [...] 300 Each 1 0 Active Glucose Blood ([employer] CONTOUR TEST) STRPIndications:Typ e 2 diabetes mellitus with hemoglobin A1c goal of less than 7.0% ([facility]) USE TO TEST BLOOD SUGAR 3 TIMES A DAY FOR DIAGNOSIS CODE OF E11.9 300 Strip 1 0 Active Blood Glucose Monitoring Suppl (CONTOUR MONITOR) w/Device KIT USE TO TEST BLOOD SUGAR 3 TIMES A DAY FOR DIAGNOSIS CODE OF E11.9 1 Kit 0 0 Active COMBIVENT RESPIMAT 20-100 MCG/ACT InhalerIndications: Asthma with severity to be determined,COPD, moderate ([facility]) [...] s:COPD, group B, 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 ([facility]) INHALE 1 PUFF BY MOUTH EVERY DAY [...] EVERY DAY 90 Tab 3 0 Active zafirlukast (ACCOLATE) 20 MG TabletIndications:A sthma with severity to be determined TAKE 1 TABLET BY MOUTH EVERY DAY 90 Tab 1 0 08/15/20 20 Discontinued documented as of this encounter [...] Hypoxemia 10/08/2011 10/30/2015 Genetic Sleep Disorder Research Other*[id number] 07/25/2011 05/15/2016 Diverticulitis of colon 07/25/2011 01/06/20 [...] Notes * Telephone Encounter - Ce Jacobo RP - 08/15/2020 9:59 AM EST Signed Prescriptions: Disp Refills Zafirlukast 20 MG Oral Tablet (ACCOLATE) 90 Tab 3 Sig: TAKE 1 TABLET BY MOUTH EVERY DAYAuthorizing Provider: ALEX PINTO User: CE JACOBO- documented in this encounter Plan of Treatment Upcoming Encounters Date Type Specialty Care Team Description 09/01/2020 Procedure Only Endoscopy Zulay Eagle, DO [address] [place] [address] [phone] 12/21/2020 Office Visit Internal Medicine Alex Pinto MD [address] [place], [place] [address] [phone] Health Maintenance Due Date Last Done Comments Zoster Vaccines (2 of 3) 08/31/2012 07/06/2012 CKD PHOS USE SMARTSET 15038 03/22/2020 03/22/2019 DIABETES-FOOT EXAM 10/19/2020 10/19/2019, 0 01/05/2019, 01/16/2018, Additional history exists DIABETES-URINE MICROALBUMIN EVERY 12 MONTHS 12/08/2020 12/08/2019, 10/30/2019, 07/09/2019, Additional history exists CKD GFR USE SMARTSET 28290 01/17/202107/19, 06/28/2020, 05/27/2020, Additional history exists DIABETES-HGBA1C EVERY 6 MONTHS 02/08/2021 08/10/2020, 06/28/2020, 03/10/2020, Additional history exists CKD HGB USE SMARTSET 51531 07/19/202107/19, 06/28/2020, 05/27/2020, Additional history exists DIABETES-EYE [...] Diagnosis Asthma with severity to be determined documented in this encounter Advance Directives Documents on File Type Date Recorded Patient Frog Or Oyster Farmworker 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
--- OUTSIDE RECORDS SUMMARY | 2023-06-18 03:20 | External Medical Summary | Summary of Care ---
Author Name Unknown Organization [place] [address] Care Team Providers Care Home Health Outreach Coordinator Name Role Phone Marcela Pinto MD Primary Care Provider + Encounter Details Date Type Department Care Team Description 08/02/2020 Scan Encounter Unspecified Department <No scans attached> Allergies Active Allergy Reactions Severity Noted Date Comments Valsartan 07/10/2010 Enalapril 05/21/2006 Escitalopram Oxalate Nausea/vomiting 10/11/2009 Nauseated Iodinated Diagnostic Agents Nausea/vomiting 05/2010 IV Contrast Iodine Hives 12/18/2009 IV Contrast Lisinopril 05/21/2006 Metoprolol Tartrate 11/18/2006 Made pulse low [place] [...] sthma with severity to be determined,COPD, moderate ([facility]) TAKE 1 PUFF BY MOUTH 4 TIMES A DAY 12 g 3 01/14/2020 Active atorvaSTATin (LIPITOR) 40 MG TabletIndications:Hy perlipidemia with target LDL less than 100 TAKE 1 TABLET BY MOUTH EVERY DAY 90 Tab 1 02/28/2020 Active omeprazole (PRILOSEC) 20 MG CPDRIndications:Isch emic colitis ([facility]) TAKE 1 CAPSULE [...] Hypoxemia 10/08/2011 10/30/2015 Genetic Sleep Disorder Research Other*[id number] 07/25/2011 05/15/2016 Diverticulitis of colon 07/25/2011 01/06/20 [...] Telemedicine Internal Medicine Marcela Pinto MD [address] [facility] [place] [address] [phone] 08/08/2020 Imaging Radiology 09/01/2020 Procedure Only Endoscopy Zulay Eagle, DO [address] [place] [address] [phone] 12/21/2020 Office Visit Internal Medicine Marcela Pinto MD [address] [place] [address] [phone] Health Maintenance Due Date Last Done Comments Zoster Vaccines (2 of 3) 08/31/2012 07/06/2012 CKD PHOS USE SMARTSET 64124 03/22/2020 03/22/2019 DXA-EVERY 5 YRS-USE SMARTSET# 3348 TO ORDER 05/01/2020 05/01/2015, 06/19/2010, 06/19/2010, Additional history exists DIABETES-EYE EXAM 08/10/2020 08/10/2019, , 08/04/2017, Additional history exists DIABETES-FOOT EXAM 10/19/2020 10/19/2019, 0 01/05/2019, 01/16/2018, Additional history exists DIABETES-URINE MICROALBUMIN EVERY 12 MONTHS 12/08/2020 12/08/2019, 10/30/2019, 07/09/2019, Additional history exists DIABETES-HGBA1C EVERY 6 MONTHS 12/26/2020 06/28/2020, 03/10/2020, 02/02/2020, Additional history exists CKD GFR USE SMARTSET 09884 01/17/202107/19, 06/28/2020, 05/27/2020, Additional history exists CKD HGB USE SMARTSET 41019 07/19/202107/19, 06/28/2020, 05/27/2020, Additional history exists COLONOSCOPY-EVERY [...] on File Type Date Recorded Patient Control Officer Manager 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
--- OUTSIDE RECORDS SUMMARY | 2023-06-18 03:21 | External Medical Summary | Summary of Care ---
Author Name Unknown Organization [place] [address] Care Team Providers Care Security Operations Analyst Name Role Phone Marcela Pinto MD Primary Care Provider [phone] Reason for Visit * Reason Comments Other hospital f/u Encounter Details Date Type Department Care Team Description 07/26/2020 Office Visit Gastroenterology, [facility] [address] [facility] [place] [address] Lilibeth Edwards CRNP [address] [facility] [place] [facility] [place] [address] Gastroesophageal reflux disease without esophagitis*; Gastroparesis; Diverticulitis of colon; GIST (gastrointestinal stromal tumor), non-malignant Allergies Active Allergy Reactions Severity Noted Date Comments Valsartan 07/10/2010 Enalapril 05/21/2006 Escitalopram Oxalate Nausea/vomiting 10/11/2009 Nauseated Iodinated Diagnostic Agents Nausea/vomiting 05/2010 IV Contrast Iodine Hives 12/18/2009 IV Contrast Lisinopril 05/21/2006 Metoprolol Tartrate 11/18/2006 Made pulse low [place] Oil-Black Currant-Vit E 07/10/2010 Verapamil 03/21/2004 Bupropion Hcl 10/30/2009 Makes pt sick in the stomach documented as of this encounter (statuses as of 07/26/2020) Medications Medication Sig Dispensed Refills Start Date [...] 300 Each 1 01/05/2020 Active Glucose Blood ([employer] ([employer]) CONTOUR TEST) STRPIndications:Type 2 diabetes mellitus with [...] as of this encounter (statuses as of 07/26/2020) Active Problems Problem Noted Date Diabetes mellitus [...] as of this encounter (statuses as of 07/26/2020) Resolved Problems Problem Noted Date Resolved Date [...] Hypoxemia 10/08/2011 10/30/2015 Genetic Sleep Disorder Research Other*[id number] 07/25/2011 05/15/2016 Diverticulitis of colon 07/25/2011 01/06/20 [...] as of this encounter (statuses as of 07/26/2020) Immunizations Name Administration Dates Next Due Hepatitis [...] Sign Reading Time Taken Comments Blood Pressure 138/64 07/26/2020 1:25 PM EDT Pulse 78 07/26/2020 1:25 PM EDT Temperature 36.5 C (97.7 F) 07/26/2020 1:25 PM ED T Respiratory Rate - - Oxygen Saturation - - Inhaled Oxygen Concentration - - Weight 107.5 kg (237 lb) 07/26/2020 1:25 PM EDT Height - - Body Mass Index 39.44 06/22/2020 2:46 PM EDT documented in this encounter Progress Notes * Lilibeth Edwards CRNP - 07/26/2020 1:30 PM EDT DATE OF SERVICE: 07/26/20 REFERRING PHYSICIAN: Marcela Pinto MD CC: F/U hospital [place] 07/26/20 (last seen in clinic by NIECY Mullins - see below): EGD/Colonoscopy done 05/07/2020 showed L sided diverticulosis, benign colon polyp. EGD unremarkable. She was admitted at [facility] in May w diverticulitis, rectal bleeding, gastroparesis flare. Currently felt much improved. Onlyusing Zofran once a day at most to control nausea. Not having abd discomfort. Bowels move daily w Colace and no signs of rectal bleeding. Office Visit 04/03/2020 : S/P Watchman procedure in [place] in November. Post- poned endo, yet to reschedule EGD/Colon that were cancelled in December. Of noted treated for suspected diverticulitis 03/01/2020 w/ cipro/flagyl. Notes her pain resolved, suggests 99% improved. Now notes there has been intermittent episodes of rectal. Today she denies any abdominal pain. Moving bowels daily with colace. Stools are brown but notes there is blood surrounding the stool and mixed in with the stool. There is no blood on the toilet tissue or toilet water typically but noticed small amount if BRB on toilet tissue Friday. No dark, tarry stools. Stools will look darker on iron. No fever, chills, CP, SOB. Office Visit 12/16/18: Acute visit for LLQ pain. Follows with Dr. Eagle for ROSA, history of diverticulitis. Has had ongoing OP GI work up w/ CT from last fall w/ large 4.3 sigmoid colon diverticula. Fell last night wearing wet shoes - was in [place] ED dx with torn ligament in thumb. Note over the past week 1 week she has had LLQ pain. This pain is intermittent. This is sharp and severe. Startsin LLQ w/ radiation to her RLQ. Associated with change in stool, looser stool last week now no BM. No black or bloody stools. Mild nausea, no vomiting. Eating and drinking okay. No urinary symptoms. No blood in urine, dysuria. No fever, chills, CP, SOB. I was unable to review report of EGD/Colon asthe links in e-channel were not loading and access to [employer] was down. CT ABD/[place] 2018: There is again noted a 4.3 cm giant diverticulum at the sigmoid colon. This demonstrates mild surrounding inflammatory change and is thick-walled. Therefore, this favors mild acuteon chronic diverticulitis. The left ovary is likely adjacent to this giant diverticulum. An ovarian-sigmoid fistula could have a similar appearance but is considered less likely. 2. Additional findings as described above remain unchanged. 08-13-18:She was re-referred back to GI after having recent endoscopic ultrasound with Dr. Eaglethat was notable for a stable submucosal fundic gastric lesion. She had a EGD after last visit without signs of ongoing bleeding or bleeding lesion. And recall that she had a colonoscopy and February that showed heavy burden no diverticuli and a CT scan done during that inpatient admission that showed a concerning sigmoid a very and fistula versus a very large sigmoid diverticulum. She wasnoted to have a hemoglobin just less than the [place]all[place] from her director long term care, her stools were checked and were positive and she was re- referred. She denies any bleeding lesions. She was told and instructed to increase her iron that she was taking every 3 days to every day but this was just last week. She has not had any further rectal bleeding she had earlier this year. Her energy level is good and she has no nausea vomiting.She does have a history of a small-bowel obstruction requiring surgery in November of 2017 at [facility]. 04-13-18 She is a 77 yo with a hx of GERD, HTN, asthma, COPD/oxygen dependent, DM- 2, HTN, Sleep apneawho presented to the ED at [facility] for rectal bleeding on . She underwent colonoscopy with Dr. Ballard, the was significant for only 2 small diminutive polyps as well as heavy burden of diverticuli. 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 She is not having any abdominal painnausea vomiting or bleeding has subsided. suggested possibly doing a barium enema for the possible fistula. She is still having occasional nausea is controlled with acid suppression as well as antiemetics. Dr. Eagle suggested repeat EUS in 1 year and is due 06-30-17: Patient presents for follow-up of abdominal discomfort and a history of postprandial nausea. During her last evaluation 3 months ago we transitioned the patient to a Low Fodmap diet. Shereports that she is feeling much improved and that her symptoms have almost resolved completely. 03-27-17: The patient presents today for follow-up with regard to postprandial discomfort and nausea. She notes that the symptoms will sometimes awaken her from sleep at night as well. She typically has a bloating like sensation. She did have a recent upper endoscopy notable for mild gastritisand a submucosal gastric mass for which we are doing a follow up study in about 1 year. She did have a prior gastric emptying study about 2 years ago which was consistent with mild gastroparesis. Additional symptoms include diffuse muscle aching which she attributes to use of her statin medication. 09-27-16: Patient presents for follow-up evaluation of epigastric discomfort. Over the summer shedid have a severe diverticular hemorrhage which resulted in an upper endoscopy and colonoscopy. The colonoscopy was notable for numerous diverticuli but no evidence of active bleeding. An upper endoscopy did reveal a submucosal gastric mass. She was to have an endoscopic ultrasound however this is not been completed yet. The discomfort is mid epigastric associated with some nausea but no vomiting. The patient did have a prior cholecystectomy for gallstones many years ago. 04-11-16: The patient presents for evaluation of abdominal discomfort. Her pain localizes to her left hand side and waxes and wanes throughout the day. She was given a course of antibiotics for possible diverticulitis without improvement of her symptoms. She notes that her symptoms are predominant constipation we having only small irregular bowel movements. She had been on MiraLax in thepast but is presently only using the medication intermittently. 08-23-14: Patient follows today for history of chronic constipation. She does well if she remainson MiraLax and Colace. Patient was admitted several months ago for gastrointestinal bleeding likely secondary to do a diverticular hemorrhage. A small adenomatous polyp was resected during the colonoscopy. Patient notes that her bowel movements are regular when she continues using MiraLax 1 times daily. She denies having abdominal pain, nausea or vomiting. She does use Bentyl 10 mg as needed for abdominal cramping. She does not use these many times during the week. HPI: Nina Harrington is a 73 year old female who presents for evaluation of abdominal discomfort. She reports having symptoms of left-sided abdominal pain which improved after she started a bowel regimen several weeks ago. This was associated with some cramping and nausea. The patient was given an empiric course of antibiotics for suspected diverticulitis as well. She denies having fevers chills sweats. She denies having nausea vomiting or difficulty swallowing. Her last colonoscopy was performed in 2011 and notable for several small polyps. She is due for follow up examination in 1.5 years. She notes having some left-sided discomfort which comes and goes but is markedly improved since starting a bowel regimen several weeks ago. Past Medical History: Diagnosis Date ACEI/ARB contraindicated [...] Grandfather (Paternal) ?COPD vs asthma Asthma Daughter Past Surgical History: Procedure Laterality Date APPENDECTOMY W/OTHER PROCEDURE 1960 when removed gall bladder COLONOSCOPY, DIAGNOSTIC (RECTUM) 05/29/2016 poor prep, diverticulosis/inpt [facility] COLONOSCOPY, DIAGNOSTIC (RECTUM) 06/05/2017 diverticulosis, repeat 3 yrs/[facility] COLONOSCOPY, DIAGNOSTIC (RECTUM) 02/28/2018 adenomatous polyps, diverticulosis, repeat 3 yrs / [facility] COLONOSCOPY, W/BIOPSY 03/20/12 hyperplastic polyps rpt 3 years. EGD, FLEXIBLE, DIAGNOSTIC 04/29/2014 normal/inpt [facility] EGD, FLEXIBLE, DIAGNOSTIC 05/29/2016 fundic submucosal mass/inpt [facility] EGD, FLEXIBLE,W/ENDOSCOPIC US 11/08/2016 inflammatory changes, stomach lesion, repeat EUS 1.5 yrs/[facility] EGD, FLEXIBLE,W/ENDOSCOPIC US 05/01/2018 stromal cell (smooth muscle) neoplasm, CBD dilation, repeat 2 yrs (needs OV prior)/[facility] INCISIONAL HERNIA REPAIR, LAP, REDUCIBLE 09/29/12 Repair of incarcerated supraumbilical (incisional) hernia with Atrium mesh 09/29/12 LIGATE/CUT OVIDUCT(S) REMOVAL OF TONSILS, AGE 12+ age 11 REMOVE GALLBLADDER 1960 SIGMOIDOSCOPY, DIAGNOSTIC 04/29/2014 stool in rectum/inpt [facility] SMALL BOWEL ENDOSCOPY, REMOVE FOREIGN BODY mesh from prior hernia surgery, wrapped around small bowel. small bowel surgery 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 Tobacco Use Smoking status: Never Smoker Smokeless tobacco: Never Used Substance Use Topics Alcohol use: No Drug use: No Review of patient's allergies indicates: Allergen Reactions Diovan [Valsartan] Enalapril Escitalopram Oxalate Nausea/vomiting Nauseated Iodinated Diagnostic Agents Nausea/vomiting IV Contrast Lisinopril Metoprolol Tartrate Made pulse low [place] Oil-Black Currant-Vit E Verapamil Wellbutrin [Bupropion [...] needed for Pain, Mild. 120 Tab 0 ondansetron [...] CODE OF E11.9 300 Strip 1 Lancets MISC Use as [...] 1000 UNITS PO TABS one tablet daily [facility] SENNA 8.6 MG Tablet TAKE 2 TABLETS BY MOUTH EVERY EVENING FOR 10 DAYS NEEDED FOR CONSTIPATION 0 REVIEW OF SYSTEMS: See HPI above; All other findings negative. EXAM: Filed Vitals: 07/26/20 1325 BP: 138/64 Pulse: 78 Temp: 36.5 C (97.7 F) Weight: 107.5 kg (237 lb) GENERAL: Well developed and well nourished in no acute distress. SKIN: No rashes, ulcers, jaundice HEENT: Normocephalic, sclera clear NECK: Supple, trachea midline, no JVD LUNGS: Clear to auscultation bilaterally, no respiratory distress or accessory muscles used. HEART: Regular rate & rhythm, no murmurs and no gallops. ABDOMEN: Normal bowel sounds, soft and nontender. EXTREMITIES: No palmar erythema, no ankle edema NEURO: No lateralizing findings. Sensory/Motor grossly normal. ASSESSMENT AND PLAN: 79 year old female recently admitted a diverticulitis, rectal bleeding, gastroparesis flare. Much improved now w/ only mid nausea, and no longer having abd pain, rectal bleeding. - Continue antiemetics prn - Continue Prilosec - Continue Miralax or Colace daily; recommend adding Metamucil 2tsp daily - Hx of GIST seen on EUS 2 yrs ago. Due for repeat. Will discuss w Dr. Eagle if should repeat given her medical comorbidities. RETURN TO CLINIC: 6 months [facility] 07/26/20 documented in this encounter Nursing Notes * Rosanne Whitley, RN - 07/26/2020 1:29 PM EDT Pt here for f/u rectal bleeding. Denies any bleeding since hospital discharge. Pt c/o "a lot of nausea." Notes some improvement since hospitalization. Usman helps when she takes it. documented in this encounter Plan of Treatment Upcoming Encounters Date Type Specialty Care Team Description 08/08/2020 Imaging Radiology 12/21/2020 Office Visit Internal Medicine Marcela Pinto MD [address] [facility] [place] [address] [phone] Health Maintenance Due Date Last Done Comments Zoster Vaccines (2 of 3) 08/31/2012 07/06/2012 CKD PHOS USE SMARTSET 74483 03/22/2020 03/22/2019 DXA-EVERY 5 YRS-USE SMARTSET# [id number] TO ORDER 05/01/2020 05/01/2015, 06/19/2010, 06/19/2010, Additional history exists DIABETES-EYE EXAM 08/10/2020 08/10/2019, , 08/04/2017, Additional history exists DIABETES-FOOT EXAM 10/19/2020 10/19/2019, 0 01/05/2019, 01/16/2018, Additional history exists DIABETES-URINE MICROALBUMIN EVERY 12 MONTHS 12/08/2020 12/08/2019, 10/30/2019, 07/09/2019, Additional history exists DIABETES-HGBA1C EVERY 6 MONTHS 12/26/2020 06/28/2020, 03/10/2020, 02/02/2020, Additional history exists CKD GFR USE SMARTSET 47937 01/17/202107/19, 06/28/2020, 05/27/2020, Additional history exists CKD HGB USE SMARTSET 68679 07/19/202107/19, 06/28/2020, 05/27/2020, Additional history exists COLONOSCOPY-EVERY [...] as of this encounter Visit Diagnoses Diagnosis Gastroesophageal reflux disease without esophagitis- Primary Esophageal reflux Gastroparesis Diverticulitis of colon Diverticulitis of colon (without mention of hemorrhage) GIST (gastrointestinal stromal tumor), non-malignant Other benign neoplasm of connective and other soft tissue of abdomen documented in this encounter Advance Directives Documents on File Type Date Recorded Patient Cable Lacer 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 Advanced Directive
--- OUTSIDE RECORDS SUMMARY | 2023-06-18 03:21 | External Medical Summary | Summary of Care ---
Author Name Unknown Organization [place] [address] Care Team Providers Care School Guidance Counselor Name Role Phone Alex Pinto MD Primary Care Provider [phone] Reason for Visit * Reason Comments eRx-Medication Refill Encounter Details Date Type Department Care Team Description 06/30/2020 Refill General Internal Medicine [facility] [address] [place], [place] [id number] Alex Pinto MD [address] [place] [address] [phone] COPD, group B, 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 ([facility]) Allergies Active Allergy Reactions Severity Noted Date Comments Valsartan 07/10/2010 Enalapril 05/21/2006 Escitalopram Oxalate Nausea/vomiting 10/11/2009 Nauseated Iodinated Diagnostic Agents Nausea/vomiting 05/2010 IV Contrast Lisinopril 05/21/2006 Metoprolol Tartrate 11/18/2006 Made pulse low [place] Oil-Black Currant-Vit E 07/10/2010 Verapamil 03/21/2004 Bupropion Hcl 10/30/2009 Makes pt sick in the stomach documented as of this encounter (statuses as of 07/02/2020) Medications Medication Sig Dispensed Refills Start Date [...] 300 Each 1 0 Active Glucose Blood ([employer] CONTOUR TEST) STRPIndications:Typ e 2 diabetes mellitus [...] afternoon//on hold per cardiology, Reported on 06/22/2020 Ketoconazole 2 % cream Apply topically to affected area 2 times a day for 42 days. Apply to groin area 60 g 11 0 07/08/20 20 Active dilTIAZem HCl ER Beads 240 MG CP24 Take 240 mg by mouth. One tablet daily 0 Active Erythromycin 250 MG TBEC Takes before each meal 0 0 Active promethazine (PHENERGAN) 25 MG Tablet [...] EVERY DAY 90 Each 3 0 Active INCRUSE ELLIPTA 62.5 MCG/INH AEPBIndications:HEALTHCARE MANAGEMENT D, group B, 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 ([facility]) INHALE 1 PUFF BY MOUTH EVERY DAY 30 Each 3 0 07/02/20 20 Discontinued documented as of this encounter (statuses as of 07/02/2020) Active Problems Problem Noted Date Diabetes mellitus [...] as of this encounter (statuses as of 07/02/2020) Resolved Problems Problem Noted Date Resolved Date [...] Hypoxemia 10/08/2011 10/30/2015 Genetic Sleep Disorder Research Other*[id number] 07/25/2011 05/15/2016 Diverticulitis of colon 07/25/2011 01/06/20 [...] as of this encounter (statuses as of 07/02/2020) Immunizations Name Administration Dates Next Due Hepatitis [...] file Not on file Not on file COVID-19 Exposure Response Date Recorded In the last month, have you been in contact with someone who was confirmed or suspected to have Coronavirus / COVID-19? Unable to assess 06/20/2020 3:39 PM EDT documented as of this encounter Miscellaneous Notes * [facility] 10[facility]52 AM EDT Signed Prescriptions: Disp Refills Incruse Ellipta 62.5 MCG/INH Inhalation Ae*90 Each3 Sig: INHALE1 PUFF BY MOUTH EVERY DAYAuthorizing Provider: ALEX PINTO User: WIL GALINDO-------- documented in this encounter Plan of Treatment Upcoming Encounters Date Type Specialty Care Team Description 07/26/2020 Office Visit Gastroenterology Lilibeth Edwards CRNP [address] [place] [address] 08/08/2020 Imaging Radiology 12/21/2020 Office Visit Internal Medicine [facility] [address] [facility] [address] [phone] Health Maintenance Due Date Last Done Comments Zoster Vaccines (2 of 3) 08/31/2012 07/06/2012 CKD PHOS USE SMARTSET 95260 03/22/2020 03/22/2019 DXA-EVERY 5 YRS-USE SMARTSET# 3348 TO ORDER 05/01/2020 05/01/2015, 06/19/2010, 06/19/2010, Additional history exists DIABETES-EYE EXAM 08/10/2020 08/10/2019, , 08/04/2017, Additional history exists DIABETES-FOOT EXAM 10/19/2020 10/19/2019, 0 01/05/2019, 01/16/2018, Additional history exists DIABETES-URINE MICROALBUMIN EVERY 12 MONTHS 12/08/2020 12/08/2019, 10/30/2019, 07/09/2019, Additional history exists CKD GFR USE SMARTSET 43541 12/26/202006/28, 05/27/2020, 05/18/2020, Additional history exists DIABETES-HGBA1C EVERY 6 MONTHS 12/26/2020 06/28/2020, 03/10/2020, 02/02/2020, Additional history exists CKD HGB USE SMARTSET 11806 06/28/202106/28, 05/27/2020, 05/18/2020, Additional history exists COLONOSCOPY-EVERY 3 YRS AGES [...] Documents on File Type Date Recorded Patient Lambskin Trimmer 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
--- OUTSIDE RECORDS SUMMARY | 2023-06-18 03:21 | External Medical Summary | Summary of Care ---
Author Name Unknown Organization [place] [address] Care Team Providers Care Splicing Machine Operator Name Role Phone Marcela Pinto MD Primary Care Provider [phone] Encounter Details Date Type Department Care Team Description 06/28/2020 Home Visit Care Coordination [address] [place] [address] Laura [place], [facility] Regrinder [address] [place] [address] [phone] Allergies Active Allergy Reactions Severity Noted Date Comments Valsartan 07/10/2010 Enalapril 05/21/2006 Escitalopram Oxalate Nausea/vomiting 10/11/2009 Nauseated Iodinated Diagnostic Agents Nausea/vomiting 05/2010 IV Contrast Lisinopril 05/21/2006 Metoprolol Tartrate 11/18/2006 Made pulse low [place] Oil-Black Currant-Vit E 07/10/2010 Verapamil 03/21/2004 Bupropion Hcl 10/30/2009 Makes pt sick in the stomach documented as of this encounter (statuses as of 06/29/2020) Medications Medication Sig Dispensed Refills Start Date [...] stool per day. ., Reported on 12/30/2019 10:10 AM Multiple Vitamins-Minerals (ONE DAILY MULTIVITAMIN WOMEN) TABS [...] EVERY DAY 90 Tab 1 02/28/2020 Active INCRUSE ELLIPTA 62.5 MCG/INH AEPBIndications:COPD , group B, 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 ([facility]) INHALE 1 PUFF BY MOUTH EVERY DAY 30 Each 3 03/09/2020 Active omeprazole (PRILOSEC) 20 MG CPDRIndications:Isch emic colitis ([facility]) TAKE 1 CAPSULE BY MOUTH TWICE [...] afternoon//on hold per cardiology, Reported on 06/22/2020 2:40 PM Ketoconazole 2 % cream Apply topically to affected area 2 times a day for 42 days. Apply to groin area 60 g 11 05/27/2020 0 Active dilTIAZem HCl ER Beads 240 [...] RESCUE KIT: Take for Colds. 0 Active documented as of this encounter (statuses as of 06/29/2020) Active Problems Problem Noted Date Diabetes mellitus [...] as of this encounter (statuses as of 06/29/2020) Resolved Problems Problem Noted Date Resolved Date [...] Hypoxemia 10/08/2011 10/30/2015 Genetic Sleep Disorder Research Other*[id number] 07/25/2011 05/15/2016 Diverticulitis of colon 07/25/2011 01/06/20 [...] as of this encounter (statuses as of 06/29/2020) Immunizations Name Administration Dates Next Due Hepatitis [...] file Not on file Not on file Travel History Travel Start Travel End COVID-19 Exposure Response Date Recorded In the last month, have you been in contact with someone who was confirmed or suspected to have Coronavirus / COVID-19? Unable to assess 06/20/2020 3:39 PM EDT documented as of this encounter Progress Notes * Cici Gama RN - 06/29/2020 12:32 PM EDT Reviewed med list - after reading your note: Patient is doing correctly - not taking the Zofran and the Phenergan. She is to use one or the other, but not both at same time. We discussed the erythromycin yesterday - as it was making her sick, taking it on an empty stomach,so had decreased to once a day. She was going to start again at 3 x day, but take after the meal tosee if that helped with the nausea. Lasix - Her med list already has that is taking one tab daily, under "Patient taking differently". There is no aspirin on her med list? Glimepiride is correct - she is to take 1/2 of a 4 mg tab. I added the doxycycline to med list as a Rescue Kit. Went back and reviewed Dr Bhatti's notes. Doxy was ordered October 2018. Thank you. * Laura [place], [facility] Re[facility]inder - 06/28/2020 2:16 PM EDT Community Health Regrinder Visit Date: 06/28/2020 Time: 2:16 PM Name: Nina Harrington : 1940 Source of Information: Patient Vitals: Vital signs completed: There were no vitals taken for this visit. Condition Changes: Changes in health or social status since last visit: The patient has new concerns since last visit: No Progress towards goals since last visit: Medications: Medication review completed?. Below meds taken differently than Epic med list: Zofran-in the home but pt not taking while she is taking Phergan Erythromycin-has not been taking as prescribed. Was taking 1xday. Will begin taking before every meal as directed. Phenergan-takes on at night not every 6 hours. It also helps her sleep. Lasix-pt reports she takes 1/day per Dr. Villaseñor. Bottle says 2-2 times a day. So she's taking 1 rather than 4 per day. Aspirin-pt reports Dr. Pinto told her to stop taking Glimperide-pt only takes 1/2 of 4mg in the am. If she takes the entire 4mg her sugar gets too low 80-90 Doxycylcine 100mg-in the home if she needs it. Prescribed by "lung " at [facility]. Senna-takes rarely "once in a great while" Miralax-takes rarely "once in a great while" Does the patient have barriers to medication adherence? No. Pt does not use med box. Takes from bottle. All bottles in a plastic bin. Pt reports she is compliant and does not miss taking meds. All inhalers/nebs as directed Telehealth: This is a telehealth visit: No. Symptoms Surveys and Evaluations: [facility]10 completed this visit: No Last flowsheet values for [facility]: COPD Checklist COPD SAJAN ([facility] Regrinder) Checklist The patient uses oxygen: Yes Tanks are stored: tanks lv rm/uses AHP Compressor located away from anything flammable: bedroon Oxygen tubing: - Clean and in good repair: Yes - Reached out to Durable Medical Equipment supplier for replacement tubing: No, not needed - Referred to Traffic Expert for additional in-home respiratory assessment: No, - Other: Describe how the patient manages going out with oxygen: Does not go without since last hospitilazation - Referred to Traffic Expert for portable oxygen order: No - Coordinated portable oxygen tanks with Durable Medical Equipment supplier: No The patient uses a nebulizer: Yes Describe how the patient uses their nebulizer: Reviewed use of a nebulizer with patient and theyreturned demonstration. knows how to clean Describe how the patient cleans the nebulizer (including the filter): Reviewed cleaning with patient and they returned demonstration. pt knows how The patient uses an inhaler: Yes Describe how the patient uses the inhaler: Patient acknowledged the need to rinse their mouth after using the inhaler. knows how Describe how the patient cleans the inhaler: Reviewed cleaning with patient and they returned demonstration. pt knows how Frequency of inhaler use: daily COPD Assessment Test (CAT) completed this visit: Yes Last flowsheet values for COPD Assessment Test (CAT): Plan: Notified Provider/Traffic Expertprivate branch exchange service adviser in condition Follow Up: Patient encouraged to call the intake phone number for all urgent but not emergent issues. Scheduled to follow up with patient as needed. . Leonardo Barajas Health Regrinder 06/28/2020 2:16 PM documented in this encounter Plan of Treatment Upcoming Encounters Date Type Specialty Care Team Description 07/26/2020 Office Visit Gastroenterology Lilibeth [place] CRNP [address] [place] [address] [phone] 08/08/2020 Imaging Radiology 12/21/2020 Office Visit [facility] [address] [facility] [address] [phone] Health Maintenance Due Date Last Done Comments Zoster Vaccines (2 of 3) 08/31/2012 07/06/2012 CKD PHOS USE SMARTSET 29932 03/22/2020 03/22/2019 DXA-EVERY 5 YRS-USE SMARTSET# 3348 TO ORDER 05/01/2020 05/01/2015, 06/19/2010, 06/19/2010, Additional history exists DIABETES-EYE EXAM 08/10/2020 08/10/2019, , 08/04/2017, Additional history exists DIABETES-HGBA1C EVERY 6 MONTHS 09/10/2020 03/10/2020, 02/02/2020, 08/26/2019, Additional history exists DIABETES-FOOT EXAM 10/19/2020 10/19/2019, 0 01/05/2019, 01/16/2018, Additional history exists CKD GFR USE SMARTSET 67373 11/27/202005/27, 05/18/2020, 03/10/2020, Additional history exists DIABETES-URINE MICROALBUMIN EVERY 12 MONTHS 12/08/2020 12/08/2019, 10/30/2019, 07/09/2019, Additional history exists CKD HGB USE SMARTSET 97638 05/27/202105/27, 05/18/2020, 04/03/2020, Additional history exists COLONOSCOPY-EVERY 3 YRS AGES [...] on File Type Date Recorded Patient Clinical Trial Educator 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
--- OUTSIDE RECORDS SUMMARY | 2023-06-18 03:21 | External Medical Summary | Summary of Care ---
Author Name Unknown Organization [place] [address] Care Team Providers Care Senior Hris Analyst Name Role Phone Marcela Pinto MD Primary Care Provider [phone] Reason for Visit * Reason Onset Date Comments Test Results 07/20/2020 Encounter Details Date Type Department Care Team Description 07/20/2020 Telephone General Internal Medicine [facility] [address] [place], [place] [id number] Marcela Pinto MD [address] [place], [place] [id number] Test Results Allergies Active Allergy Reactions Severity Noted Date Comments Valsartan 07/10/2010 Enalapril 05/21/2006 Escitalopram Oxalate Nausea/vomiting 10/11/2009 Nauseated Iodinated Diagnostic Agents Nausea/vomiting 05/2010 IV Contrast Lisinopril 05/21/2006 Metoprolol Tartrate 11/18/2006 Made pulse low [place] Oil-Black Currant-Vit E 07/10/2010 Verapamil 03/21/2004 Bupropion Hcl 10/30/2009 Makes pt sick in the stomach documented as of this encounter (statuses as of 07/20/2020) Medications Medication Sig Dispensed Refills Start Date [...] as of this encounter (statuses as of 07/20/2020) Active Problems Problem Noted Date Diabetes mellitus [...] as of this encounter (statuses as of 07/20/2020) Resolved Problems Problem Noted Date Resolved Date [...] Hypoxemia 10/08/2011 10/30/2015 Genetic Sleep Disorder Research Other*[id number] 07/25/2011 05/15/2016 Diverticulitis of colon 07/25/2011 01/06/20 [...] as of this encounter (statuses as of 07/20/2020) Immunizations Name Administration Dates Next Due Hepatitis [...] encounter Miscellaneous Notes * Telephone Encounter - LeaderVilma LPN - 07/20/2020 12:54 PM EDT Called patient. Patient was fasting for these labs. Patient stated she is taking Iron every other day as directed with stool softener. Patient understands results and will have labs done as ordered. * Telephone Encounter - Vilma Galindo LPN - 07/20/2020 12:49 PM EDT ----- Message from Marcela Pinto MD sent at 07/20/2020 11:59 AM EDT ----- BMP shows high glucose if she was fasting, Hb 9.8.. Make sure she takes OTC iron pill one every other day along with stool softner. Needs repeat cbcd, ferritin, iron screen, B12, Hba1c- Nonfasting lab in 4 to 6 weeks from now. documented in this encounter Plan of Treatment Upcoming Encounters Date Type Specialty Care Team Description 07/26/2020 [facility] [place] [facility] [address] [facility] [address] [phone] 08/08/2020 Imaging Radiology 12/21/2020 Office Visit Internal Medicine [facility] [address] [facility] [address] [phone] Scheduled Orders Name Type Priority Associated Diagnoses Orde r Schedule CBC/DIFF Lab Routine Low hemoglobin Expected: 08/20/2020 (Approximate), Expires: 07/20/2021 FERRITIN Lab Routine Low hemoglobin Expected: 08/20/2020 (Approximate), Expires: 07/20/2021 IRON SCREEN, INCLUDING TIBC Lab Routine Low hemoglobin Expected: 08/20/2020 (Approximate), Expires: 07/20/2021 VITAMIN B12 Lab Routine Other dietary vitamin B12 deficiency anemia Low hemoglobin Expected: 08/20/2020 (Approximate), Expires: 07/20/2021 HEMOGLOBIN A1C Lab Routine Elevated glucose Expected: 08/20/2020 (Approximate), Expires: 07/20/2021 Health Maintenance Due Date Last Done Comments Zoster Vaccines (2 of 3) 08/31/2012 07/06/2012 CKD PHOS USE SMARTSET 43858 03/22/2020 03/22/2019 DXA-EVERY 5 YRS-USE SMARTSET# 3348 TO ORDER 05/01/2020 05/01/2015, 06/19/2010, 06/19/2010, Additional history exists DIABETES-EYE EXAM 08/10/2020 08/10/2019, , 08/04/2017, Additional history exists DIABETES-FOOT EXAM 10/19/2020 10/19/2019, 0 01/05/2019, 01/16/2018, Additional history exists DIABETES-URINE MICROALBUMIN EVERY 12 MONTHS 12/08/2020 12/08/2019, 10/30/2019, 07/09/2019, Additional history exists DIABETES-HGBA1C EVERY 6 MONTHS 12/26/2020 06/28/2020, 03/10/2020, 02/02/2020, Additional history exists CKD GFR USE SMARTSET 21763 01/17/202107/19, 06/28/2020, 05/27/2020, Additional history exists CKD HGB USE SMARTSET 90480 07/19/202107/19, 06/28/2020, 05/27/2020, Additional history exists COLONOSCOPY-EVERY [...] as of this encounter Visit Diagnoses Diagnosis Low hemoglobin- Primary Anemia, unspecified Elevated glucose Other abnormal glucose Other dietary vitamin B12 deficiency anemia documented in this encounter Advance Directives Documents on File Type Date Recorded 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
--- OUTSIDE RECORDS SUMMARY | 2023-06-18 03:21 | External Medical Summary | Summary of Care ---
Author Name Unknown Organization [place] [address] Care Team Providers Care Silk Folder Name Role Phone Marcela Pinto MD Primary Care Provider [phone] Reason for Visit * Reason Onset Date Comments Health Maintenance 07/14/2020 Encounter Details Date Type Department Care Team Description 07/14/2020 Telephone General Internal Medicine [facility] [address] [place], [place] [phone] Marcela Pinto MD [address] [place] [address] [phone] Health Maintenance Allergies Active Allergy Reactions Severity Noted Date Comments Valsartan 07/10/2010 Enalapril 05/21/2006 Escitalopram Oxalate Nausea/vomiting 10/11/2009 Nauseated Iodinated Diagnostic Agents Nausea/vomiting 05/2010 IV Contrast Lisinopril 05/21/2006 Metoprolol Tartrate 11/18/2006 Made pulse low [place] Oil-Black Currant-Vit E 07/10/2010 Verapamil 03/21/2004 Bupropion Hcl 10/30/2009 Makes pt sick in the stomach documented as of this encounter (statuses as of 07/14/2020) Medications Medication Sig Dispensed Refills Start Date [...] as of this encounter (statuses as of 07/14/2020) Active Problems Problem Noted Date Diabetes mellitus [...] as of this encounter (statuses as of 07/14/2020) Resolved Problems Problem Noted Date Resolved Date [...] Hypoxemia 10/08/2011 10/30/2015 Genetic Sleep Disorder Research Other*[id number] 07/25/2011 05/15/2016 Diverticulitis of colon 07/25/2011 01/06/20 [...] as of this encounter (statuses as of 07/14/2020) Immunizations Name Administration Dates Next Due Hepatitis [...] encounter Miscellaneous Notes * Telephone Encounter - Barbara Higgins LPN - 07/14/2020 11:18 AM EDT Care Gaps Comprehensive Care Outreach Last Office/Telemedicine Visit: Last Office/Telemedicine Visit: 06/22/2020 Next Office Visit: Next Office Visit: 12/21/2020 Scheduled Provider(s): Marcela Pinto MD Reviewed Health Maintenance below Health Maintenance Topic Date Due Zoster Vaccines (2 of 3) 08/31/2012 CKD PHOS USE SMARTSET 85100 03/22/2020 DXA-EVERY 5 YRS-USE SMARTSET# 3348 TO ORDER 05/01/2020 DIABETES-EYE EXAM 08/10/2020 Care Gap Outreach Action Taken: Able to reach: Declined AWV. Patient preference. Dexa and eye ecam already scheduled and upcoming. Phosphorus level placed so that it can be done at next lab draw with already ordered labs. documented in this encounter Plan of Treatment Upcoming Encounters Date Type Specialty Care Team Description 07/20/2020 Imaging Radiology 07/26/2020 Office Visit Gastroenterology Lilibeth Edwards CRNP [address] [facility] [place] [address] [phone] 08/08/2020 Imaging Radiology 12/21/2020 Office Visit Internal Medicine [facility] [address] [facility] [address] [phone] Scheduled Orders Name Type Priority Associated Diagnoses Orde r Schedule PHOSPHORUS Lab Routine Chronic kidney disease, unspecified CKD stage Expected: 07/14/2020, Expires: 07/14/2021 Health Maintenance Due Date Last Done Comments Zoster Vaccines (2 of 3) 08/31/2012 07/06/2012 CKD PHOS USE SMARTSET 14709 03/22/2020 03/22/2019 DXA-EVERY 5 YRS-USE SMARTSET# 3348 TO ORDER 05/01/2020 05/01/2015, 06/19/2010, 06/19/2010, Additional history exists DIABETES-EYE EXAM 08/10/2020 08/10/2019, , 08/04/2017, Additional history exists DIABETES-FOOT EXAM 10/19/2020 10/19/2019, 0 01/05/2019, 01/16/2018, Additional history exists DIABETES-URINE MICROALBUMIN EVERY 12 MONTHS 12/08/2020 12/08/2019, 10/30/2019, 07/09/2019, Additional history exists CKD GFR USE SMARTSET 14400 12/26/202006/28, 05/27/2020, 05/18/2020, Additional history exists DIABETES-HGBA1C EVERY 6 MONTHS 12/26/2020 06/28/2020, 03/10/2020, 02/02/2020, Additional history exists CKD HGB USE SMARTSET 88188 06/28/202106/28, 05/27/2020, 05/18/2020, Additional history exists COLONOSCOPY-EVERY [...] Diagnoses Diagnosis Chronic kidney disease, unspecified CKD stage- Primary documented in this encounter Advance Directives Documents on File Type Date Recorded Patient Sock Boarder 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 Advanced Directive
--- OUTSIDE RECORDS SUMMARY | 2023-06-18 03:21 | External Medical Summary | Summary of Care ---
Author Name Unknown Organization [place] [address] Care Team Providers Care Day Care Provider Name Role Phone Marcela Pinto MD Primary Care Provider [phone] Reason for Visit * Reason Onset Date Comments Appointment 07/26/2020 Encounter Details Date Type Department Care Team Description 07/26/2020 Telephone Gastroenterology, [facility] [address] [facility] [place] [address] Lilibeth Edwards CRNP [address] [facility] [place] [id number] Appointment Allergies Active Allergy Reactions Severity Noted Date Comments Valsartan 07/10/2010 Enalapril 05/21/2006 Escitalopram Oxalate Nausea/vomiting 10/11/2009 Nauseated Iodinated Diagnostic Agents Nausea/vomiting 05/2010 IV Contrast Iodine Hives 12/18/2009 IV Contrast Lisinopril 05/21/2006 Metoprolol Tartrate 11/18/2006 Made pulse low [place] Oil-Black Currant-Vit E 07/10/2010 Verapamil 03/21/2004 Bupropion Hcl 10/30/2009 Makes pt sick in the stomach documented as of this encounter (statuses as of 07/27/2020) Medications Medication Sig Dispensed Refills Start Date [...] 300 Each 1 01/05/2020 Active Glucose Blood ([employer] CONTOUR TEST) STRPIndications:Type 2 diabetes mellitus with [...] 2017 classification ([facility]) INHALE 1 PUFF BY MOUTH EVERY DAY 90 Each 3 07/02/2020 Active documented as of this encounter (statuses as of 07/27/2020) Active Problems Problem Noted Date Diabetes mellitus [...] as of this encounter (statuses as of 07/27/2020) Resolved Problems Problem Noted Date Resolved Date [...] Hypoxemia 10/08/2011 10/30/2015 Genetic Sleep Disorder Research Other*[id number] 07/25/2011 05/15/2016 Diverticulitis of colon 07/25/2011 01/06/20 [...] as of this encounter (statuses as of 07/27/2020) Immunizations Name Administration Dates Next Due Hepatitis [...] encounter Miscellaneous Notes * Telephone Encounter - Charlene Thomas OSA - 07/27/2020 10:34 AM EDT Patient is scheduled and aware of EUS 09/[address] [place] [address] Eagle. Prep instructions mailed to home address. Patient notified COVID swab will be required 08/25. 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 She needs it done at [facility] NIECY Kunz documented in this encounter Plan of Treatment Upcoming Encounters Date Type Specialty Care Team Description 08/08/2020 Imaging Radiology 09/01/2020 Procedure Only Endoscopy Zulay Eagle, DO [address] [facility] [place] [address] [phone] 12/21/2020 Office Visit Internal Medicine Marcela Pinto MD [address] [place] [address] [phone] Scheduled Orders Name Type Priority Associated Diagnoses Orde r Schedule US ENDOSCOPIC Medical Imaging Routine GIST, non-malignant Ordered: 07/26/2020 Health Maintenance Due Date Last Done Comments Zoster Vaccines (2 of 3) 08/31/2012 07/06/2012 CKD PHOS USE SMARTSET 22852 03/22/2020 03/22/2019 DXA-EVERY 5 YRS-USE SMARTSET# 3348 TO ORDER 05/01/2020 05/01/2015, 06/19/2010, 06/19/2010, Additional history exists DIABETES-EYE EXAM 08/10/2020 08/10/2019, , 08/04/2017, Additional history exists DIABETES-FOOT EXAM 10/19/2020 10/19/2019, 0 01/05/2019, 01/16/2018, Additional history exists DIABETES-URINE MICROALBUMIN EVERY 12 MONTHS 12/08/2020 12/08/2019, 10/30/2019, 07/09/2019, Additional history exists DIABETES-HGBA1C EVERY 6 MONTHS 12/26/2020 06/28/2020, 03/10/2020, 02/02/2020, Additional history exists CKD GFR USE SMARTSET 14992 01/17/202107/19, 06/28/2020, 05/27/2020, Additional history exists CKD HGB USE SMARTSET 14910 07/19/202107/19, 06/28/2020, 05/27/2020, Additional history exists COLONOSCOPY-EVERY [...] as of this encounter Visit Diagnoses Diagnosis GIST, 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
--- OUTSIDE RECORDS SUMMARY | 2023-06-18 03:21 | External Medical Summary | Summary of Care ---
Author Name Unknown Organization [place] [address] Care Team Providers Care Hose Tender Name Role Phone Marcela Pinto MD Primary Care Provider [phone] Encounter Details Date Type Department Care Team Description 06/28/2020 Home Visit Care Coordination [address] [place] [address] Laura Anderson, [facility] Radiologic Tech [address] [place] [address] [phone] Allergies Active Allergy Reactions Severity Noted Date Comments Valsartan 07/10/2010 Enalapril 05/21/2006 Escitalopram Oxalate Nausea/vomiting 10/11/2009 Nauseated Iodinated Diagnostic Agents Nausea/vomiting 05/2010 IV Contrast Lisinopril 05/21/2006 Metoprolol Tartrate 11/18/2006 Made pulse low [place] Oil-Black Currant-Vit E 07/10/2010 Verapamil 03/21/2004 Bupropion [...] Hypoxemia 10/08/2011 10/30/2015 Genetic Sleep Disorder Research Other*[id number] 07/25/2011 05/15/2016 Diverticulitis of colon 07/25/2011 01/06/20 [...] Thank you. * Laura Anderson, [facility] - 06/28/2020 2:16 PM EDT [facility] Visit Date: 06/28/2020 Time: 2:16 PM Name: [...] needs it. Prescribed by "lung " at [facility]. Senna-takes rarely "once in a great while" [...] this visit: No Last flowsheet values for [facility]: COPD Checklist COPD SAJAN ([facility]) Checklist The patient uses oxygen: Yes Tanks are stored: tanks lv rm/uses AHP Compressor located away from anything flammable: bedroon Oxygen tubing: - Clean and in good repair: Yes - Reached out to Durable Medical Equipment supplier for replacement tubing: No, not needed - Referred to Financial Developer for additional in-home respiratory assessment: No, - Other: Describe how the patient manages going out with oxygen: Does not go without since last hospitilazation - Referred to Financial Developer for portable oxygen order: No - Coordinated [...] for COPD Assessment Test (CAT): Plan: Notified Provider/Financial Developerglobal director air and climate change in condition Follow Up: Patient encouraged to call the intake phone number for all urgent but not emergent issues. Scheduled to follow up with patient as needed. . Leonardo [facility] Radiologic Tech 06/28/2020 2:16 PM documented in this encounter Plan of Treatment Upcoming Encounters Date Type Specialty Care Team Description 07/26/2020 Office Visit Gastroenterology Lilibeth Edwards CRNP [address] [place] [address] [phone] 08/08/2020 Imaging Radiology 12/21/2020 Office Visit Internal [facility] [address] [phone] Health Maintenance Due Date Last Done Comments Zoster Vaccines (2 of 3) 08/31/2012 07/06/2012 CKD PHOS USE SMARTSET 62205 03/22/2020 03/22/2019 DXA-EVERY 5 YRS-USE SMARTSET# 3348 TO ORDER 05/01/2020 05/01/2015, 06/19/2010, 06/19/2010, Additional history exists DIABETES-EYE EXAM 08/10/2020 08/10/2019, , 08/04/2017, Additional history exists DIABETES-HGBA1C EVERY 6 MONTHS 09/10/2020 03/10/2020, 02/02/2020, 08/26/2019, Additional history exists DIABETES-FOOT EXAM 10/19/2020 10/19/2019, 0 01/05/2019, 01/16/2018, Additional history exists CKD GFR USE SMARTSET 23982 11/27/202005/27, 05/18/2020, 03/10/2020, Additional history exists DIABETES-URINE MICROALBUMIN EVERY 12 MONTHS 12/08/2020 12/08/2019, 10/30/2019, 07/09/2019, Additional history exists CKD HGB USE SMARTSET 27273 05/27/202105/27, 05/18/2020, 04/03/2020, Additional history exists COLONOSCOPY-EVERY [...] on File Type Date 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
--- OUTSIDE RECORDS SUMMARY | 2023-06-18 03:21 | External Medical Summary | Summary of Care ---
Author Name Unknown Organization [place] [address] Care Team Providers Care Quality Control Projectionist Name Role Phone Marcela Pinto MD Primary Care Provider [phone] Encounter Details Date Type Department Care Team Description 07/27/2020 Orders Only Gastroenterology, [facility] [address] [facility] [place] [address] [facility]ulay Eagle, [address] [facility] [address] Pre-op testing* Allergies Active Allergy Reactions Severity Noted Date Comments Valsartan 07/10/2010 Enalapril 05/21/2006 Escitalopram Oxalate Nausea/vomiting 10/11/2009 Nauseated Iodinated Diagnostic Agents Nausea/vomiting 05/2010 IV Contrast Iodine Hives 12/18/2009 IV Contrast Lisinopril 05/21/2006 Metoprolol Tartrate 11/18/2006 Made pulse low [place] Oil-Black Currant-Vit E 07/10/2010 Verapamil 03/21/2004 Bupropion [...] B, 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 ([facility]) INHALE 1 PUFF BY MOUTH [...] Hypoxemia 10/08/2011 10/30/2015 Genetic Sleep Disorder Research Other*[id number] 07/25/2011 05/15/2016 Diverticulitis of colon 07/25/2011 01/06/20 [...] Imaging Radiology 09/01/2020 Procedure Only Endoscopy Zulay Eagle DO [address] [place] [address] [phone] 12/21/2020 Office Visit Internal Medicine Marcela Pinto MD [address] [place] [address] [phone] Scheduled Orders Name Type Priority Associated Diagnoses Orde r Schedule COVID-19 Lab Routine Pre-op testing Expected: 07/28/2020 (Approximate), Expires: 10/27/2020 Health Maintenance Due Date Last Done Comments Zoster Vaccines (2 of 3) 08/31/2012 07/06/2012 CKD PHOS USE SMARTSET 97058 03/22/2020 03/22/2019 DXA-EVERY 5 YRS-USE SMARTSET# 3348 TO ORDER 05/01/2020 05/01/2015, 06/19/2010, 06/19/2010, Additional history exists DIABETES-EYE EXAM 08/10/2020 08/10/2019, , 08/04/2017, Additional history exists DIABETES-FOOT EXAM 10/19/2020 10/19/2019, 0 01/05/2019, 01/16/2018, Additional history exists DIABETES-URINE MICROALBUMIN EVERY 12 MONTHS 12/08/2020 12/08/2019, 10/30/2019, 07/09/2019, Additional history exists DIABETES-HGBA1C EVERY 6 MONTHS 12/26/2020 06/28/2020, 03/10/2020, 02/02/2020, Additional history exists CKD GFR USE SMARTSET 59683 01/17/202107/19, 06/28/2020, 05/27/2020, Additional history exists CKD HGB USE SMARTSET 75368 07/19/202107/19, 06/28/2020, 05/27/2020, Additional history exists COLONOSCOPY-EVERY [...] as of this encounter Visit Diagnoses Diagnosis Pre-op testing- Primary Preoperative examination, unspecified documented in this encounter Advance Directives Documents on File Type Date 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
--- OUTSIDE RECORDS SUMMARY | 2023-06-18 03:21 | External Medical Summary | Summary of Care ---
Author Name Unknown Organization [place] [address] Care Team Providers Care Model Dresser Name Role Phone Marcela Pinto MD Primary Care Provider [phone] Reason for Visit * Reason Onset Date Comments Appointment 07/26/2020 Encounter Details Date Type Department Care Team Description 07/26/2020 Telephone Gastroenterology, [facility] [address] [facility] [place] [address] Lilibeth Edwards CRNP 132 [place] [address] Appointment Allergies Active Allergy Reactions Severity Noted Date Comments Valsartan 07/10/2010 Enalapril 05/21/2006 Escitalopram Oxalate Nausea/vomiting 10/11/2009 Nauseated Iodinated Diagnostic Agents Nausea/vomiting 05/2010 IV Contrast Iodine Hives 12/18/2009 IV Contrast Lisinopril 05/21/2006 Metoprolol Tartrate 11/18/2006 Made pulse low [place] Oil-Black Currant-Vit E 07/10/2010 Verapamil 03/21/2004 Bupropion [...] 300 Each 1 01/05/2020 Active Glucose Blood ([employer] CONTOUR TEST) STRPIndications:Type 2 diabetes mellitus [...] Hypoxemia 10/08/2011 10/30/2015 Genetic Sleep Disorder Research Other*[id number] 07/25/2011 05/15/2016 Diverticulitis of colon 07/25/2011 01/06/20 [...] encounter Miscellaneous Notes * Telephone Encounter - Lilibeth Edwards CRNP - 07/26/2020 4:29 PM EDT 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 She needs it done at [facility] documented in this encounter Plan of Treatment Upcoming Encounters Date Type Specialty Care Team Description 08/08/2020 Imaging Radiology 12/21/2020 Office Visit Internal Medicine Marcela Pinto MD 200 [place] [address] Scheduled Orders Name Type Priority Associated Diagnoses Orde r Schedule US ENDOSCOPIC Medical Imaging Routine GIST, non-malignant Ordered: 07/26/2020 Health Maintenance Due Date Last Done Comments Zoster Vaccines (2 of 3) 08/31/2012 07/06/2012 CKD PHOS USE SMARTSET 68748 03/22/2020 03/22/2019 DXA-EVERY 5 YRS-USE SMARTSET# 3348 TO ORDER 05/01/2020 05/01/2015, 06/19/2010, 06/19/2010, Additional history exists DIABETES-EYE EXAM 08/10/2020 08/10/2019, , 08/04/2017, Additional history exists DIABETES-FOOT EXAM 10/19/2020 10/19/2019, 0 01/05/2019, 01/16/2018, Additional history exists DIABETES-URINE MICROALBUMIN EVERY 12 MONTHS 12/08/2020 12/08/2019, 10/30/2019, 07/09/2019, Additional history exists DIABETES-HGBA1C EVERY 6 MONTHS 12/26/2020 06/28/2020, 03/10/2020, 02/02/2020, Additional history exists CKD GFR USE SMARTSET 74665 01/17/202107/19, 06/28/2020, 05/27/2020, Additional history exists CKD HGB USE SMARTSET 23529 07/19/202107/19, 06/28/2020, 05/27/2020, Additional history exists COLONOSCOPY-EVERY [...] Documents on File Type Date Recorded Patient Loss Prevention 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 Advanced Directive
--- OUTSIDE RECORDS SUMMARY | 2023-06-18 03:21 | External Medical Summary | Summary of Care ---
Author Name Unknown Organization [place] [address] Care Team Providers Care Cupola Operator Name Role Phone Marcela Pinto MD Primary Care Provider [phone] Encounter Details Date Type Department Care Team Description 07/20/2020 Orders Only General Internal Medicine [facility] [address] [facility] [address] [place], [place] [id number] Marcela Pinto MD [address] [facility] [place], [place] [id number] Allergies Active Allergy Reactions Severity Noted Date Comments Valsartan 07/10/2010 Enalapril 05/21/2006 Escitalopram Oxalate Nausea/vomiting 10/11/2009 Nauseated Iodinated Diagnostic Agents Nausea/vomiting 05/2010 IV Contrast Lisinopril 05/21/2006 Metoprolol Tartrate 11/18/2006 Made pulse low [place] Oil-Black Currant-Vit E 07/10/2010 Verapamil 03/21/2004 Bupropion [...] 300 Each 1 01/05/2020 Active Glucose Blood ([employer] CONTOUR TEST) STRPIndications:Type 2 diabetes mellitus with [...] Hypoxemia 10/08/2011 10/30/2015 Genetic Sleep Disorder Research Other*[id number] 07/25/2011 05/15/2016 Diverticulitis of colon 07/25/2011 01/06/20 [...] PM EDT documented as of this encounter Plan of Treatment Upcoming Encounters Date Type Specialty Care Team Description 07/26/2020 Office Visit Gastroenterology Lilibeth Edwards CRNP [address] [place] [address] [phone] 08/08/2020 Imaging Radiology 12/21/2020 Office Visit Internal Medicine Marcela Pinto MD [address] [facility] [place] [address] [phone] Health Maintenance Due Date Last Done Comments Zoster Vaccines (2 of 3) 08/31/2012 07/06/2012 CKD PHOS USE SMARTSET 72201 03/22/2020 03/22/2019 DXA-EVERY 5 YRS-USE SMARTSET# 3348 TO ORDER 05/01/2020 05/01/2015, 06/19/2010, 06/19/2010, Additional history exists DIABETES-EYE EXAM 08/10/2020 08/10/2019, , 08/04/2017, Additional history exists DIABETES-FOOT EXAM 10/19/2020 10/19/2019, 0 01/05/2019, 01/16/2018, Additional history exists DIABETES-URINE MICROALBUMIN EVERY 12 MONTHS 12/08/2020 12/08/2019, 10/30/2019, 07/09/2019, Additional history exists CKD GFR USE SMARTSET 15887 12/26/202007/19, 06/28/2020, 05/27/2020, Additional history exists DIABETES-HGBA1C EVERY 6 MONTHS 12/26/2020 06/28/2020, 03/10/2020, 02/02/2020, Additional history exists CKD HGB USE SMARTSET 59330 06/28/202107/19, 06/28/2020, 05/27/2020, Additional history exists COLONOSCOPY-EVERY 3 [...] Priority Date/Time Associated Diagnosis Comments CHEMISTRY-OUTSIDE Routine 07/19/2020 documented in this encounter Results * CHEMISTRY-OUTSIDE (07/19/2020) CREATININE-OUTSIDE LAB 0.81 0.55 - 1.02 MG/DL OUTSIDE LAB (SEE SCANNED REPORT) EGFR-OUTSIDE LAB >60 ML/MIN OUTSIDE LAB (SEE SCANNED REPORT) POTASSIUM-OUTSIDE LAB 4.4 3.5 - 5.1 MMOL/L OUTSIDE LAB (SEE [...] LAB OUTSIDE LAB (SEE SCANNED REPORT) HEMOGLOBIN, Q7B-FACTYRG LAB OUTSIDE LAB (SEE SCANNED REPORT) PHOSPHORUS-OUTSIDE LAB OUTSIDE LAB (SEE SCANNED REPORT) PTH-OUTSIDE LAB OUTSIDE LAB (SEE SCANNED REPORT) MICROALBUMIN RATIO-OUTSIDE LAB OUTSIDE LAB (SEE SCANNED REPORT) PROTEIN, UA-OUTSIDE LAB OUTSIDE LAB (SEE SCANNED REPORT) HEMOGLOBIN-OUTSIDE LAB 9.8(A) 12.0 - 16.0 G/DL OUTSIDE LAB (SEE SCANNED REPORT) CHEMISTRY COMMENT-OUTSIDE LAB Comment:BMP, MAG, CBC - SEE SCAN OUTSIDE LAB (SEE SCANNED REPORT) Specimen Narrative Performed At OUTSIDE LAB (SEE SCANNED REPORT) documented in this encounter Advance Directives Documents on File Type Date Recorded 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
--- OUTSIDE RECORDS SUMMARY | 2023-06-18 03:21 | External Medical Summary | Summary of Care ---
Author Name Unknown Organization [place] [address] Care Team Providers Care Buzzsaw Operator Helper Name Role Phone Marcela Pinto MD Primary Care Provider [phone] Reason for Visit * Reason Onset Date Comments case management 07/21/2020 Closing from Cruz e Management Encounter Details Date Type Department Care Team Description 07/21/2020 Doctor Of Naturopathic Medicine Telephone Family Practice [facility] [address] [place], [place] [id number] Cici Gama, RN [address] [place] [address] [place] [address] case management (Closing from Case Managem... Allergies Active Allergy Reactions Severity Noted Date Comments Valsartan 07/10/2010 Enalapril 05/21/2006 Escitalopram Oxalate Nausea/vomiting 10/11/2009 Nauseated Iodinated Diagnostic Agents Nausea/vomiting 05/2010 IV Contrast Lisinopril 05/21/2006 Metoprolol Tartrate 11/18/2006 Made pulse low [place] Oil-Black Currant-Vit E 07/10/2010 Verapamil 03/21/2004 Bupropion Hcl 10/30/2009 Makes pt sick in the stomach documented as of this encounter (statuses as of 07/21/2020) Medications Medication Sig Dispensed Refills Start Date [...] 300 Each 1 01/05/2020 Active Glucose Blood ([employer] CONTOUR TEST) STRPIndications:Type 2 diabetes mellitus with [...] B, 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 ([facility]) INHALE 1 PUFF BY MOUTH EVERY DAY 90 Each 3 07/02/2020 Active documented as of this encounter (statuses as of 07/21/2020) Active Problems Problem Noted Date Diabetes mellitus [...] as of this encounter (statuses as of 07/21/2020) Resolved Problems Problem Noted Date Resolved Date [...] Hypoxemia 10/08/2011 10/30/2015 Genetic Sleep Disorder Research Other*[id number] 07/25/2011 05/15/2016 Diverticulitis of colon 07/25/2011 01/06/20 [...] as of this encounter (statuses as of 07/21/2020) Immunizations Name Administration Dates Next Due Hepatitis [...] Telephone Encounter - Cici Gama RN - 07/21/2020 9:34 AM EDT 30 day HERMAN completed. No readmission or ER visits in the past 30 days. PCP hospital follow up kept on 06/22/20. ' [facility] home visit completed on 06/28/20. Patient cancelled and rescheduled her Gastro appointment. BP at goal of <140/90. A1c at goal of <7.5. LDL at goal of <100. Patient had flu vaccine on 06/22/20. Disenrolled from post discharge telehealth IVR calls in [employer]. Closing from Case Management. documented in this encounter Plan of Treatment Upcoming Encounters Date Type Specialty Care Team Description 07/26/2020 Office Visit Gastroenterology Lilibeth Edwards CRNP [address] [facility] [place] [address] [phone] 08/08/2020 Imaging Radiology 12/21/2020 Office Visit Internal Medicine Marcela Pinto MD [address] [place] [address] [phone] Health Maintenance Due Date Last Done Comments Zoster Vaccines (2 of 3) 08/31/2012 07/06/2012 CKD PHOS USE SMARTSET 53167 03/22/2020 03/22/2019 DXA-EVERY 5 YRS-USE SMARTSET# 3348 TO ORDER 05/01/2020 05/01/2015, 06/19/2010, 06/19/2010, Additional history exists DIABETES-EYE EXAM 08/10/2020 08/10/2019, , 08/04/2017, Additional history exists DIABETES-FOOT EXAM 10/19/2020 10/19/2019, 0 01/05/2019, 01/16/2018, Additional history exists DIABETES-URINE MICROALBUMIN EVERY 12 MONTHS 12/08/2020 12/08/2019, 10/30/2019, 07/09/2019, Additional history exists DIABETES-HGBA1C EVERY 6 MONTHS 12/26/2020 06/28/2020, 03/10/2020, 02/02/2020, Additional history exists CKD GFR USE SMARTSET 66539 01/17/202107/19, 06/28/2020, 05/27/2020, Additional history exists CKD HGB USE SMARTSET 22321 07/19/202107/19, 06/28/2020, 05/27/2020, Additional history exists COLONOSCOPY-EVERY [...] Documents on File Type Date Recorded 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
--- OUTSIDE RECORDS SUMMARY | 2023-06-18 03:22 | External Medical Summary | Summary of Care ---
Author Name Unknown Organization [place] [address] Care Team Providers Care Direct Care Staffer Name Role Phone Marcela Pinto MD Primary Care Provider [phone] Encounter Details Date Type Department Care Team Description 06/28/2020 Family Service AideSustainment Logistics Analyst [facility] [address] [place] [address] Cici Gama, RN [address] [place] [address] [place] [address] Medical home patient encounter*; Nausea without vomiting; Gastro-esophageal reflux disease without esophagitis; Type 2 diabetes mellitus with hemoglobin A1c goal of less than 7.5% ([facility]); Generalized osteoarthritis; COPD, group B, 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 ([facility]); Nocturnal hypoxia Allergies Active Allergy Reactions Severity Noted Date Comments Valsartan 07/10/2010 Enalapril 05/21/2006 Escitalopram Oxalate Nausea/vomiting 10/11/2009 Nauseated Iodinated Diagnostic Agents Nausea/vomiting 05/2010 IV Contrast Lisinopril 05/21/2006 Metoprolol Tartrate 11/18/2006 Made pulse low [place] Oil-Black Currant-Vit E 07/10/2010 Verapamil 03/21/2004 Bupropion Hcl 10/30/2009 Makes pt sick in the stomach documented as of this encounter (statuses as of 06/28/2020) Medications Medication Sig Dispensed Refills Start Date [...] 300 Each 1 01/05/2020 Active Glucose Blood ([employer] CONTOUR TEST) STRPIndications:Type 2 diabetes mellitus with [...] sthma with severity to be determined,COPD, moderate ([facility]) TAKE 1 PUFF BY MOUTH 4 TIMES A DAY 12 g 3 01/14/2020 Active atorvaSTATin (LIPITOR) 40 MG TabletIndications:Hy perlipidemia with target LDL less than 100 TAKE 1 TABLET BY MOUTH EVERY DAY 90 Tab 1 02/28/2020 Active INCRUSE ELLIPTA 62.5 MCG/INH AEPBIndications:COPD , group B, 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 ([facility]) INHALE 1 PUFF BY MOUTH EVERY DAY 30 Each 3 03/09/2020 Active omeprazole (PRILOSEC) 20 MG CPDRIndications:Isch emic colitis ([facility]) TAKE 1 CAPSULE [...] for Nausea. dissolve on tongue. 0 Active documented as of this encounter (statuses as of 06/28/2020) Active Problems Problem Noted Date Diabetes mellitus [...] as of this encounter (statuses as of 06/28/2020) Resolved Problems Problem Noted Date Resolved Date [...] Hypoxemia 10/08/2011 10/30/2015 Genetic Sleep Disorder Research Other*[id number] 07/25/2011 05/15/2016 Diverticulitis of colon 07/25/2011 01/06/20 [...] as of this encounter (statuses as of 06/28/2020) Immunizations Name Administration Dates Next Due Hepatitis [...] Progress Notes * Cici Gama, RN - 06/28/2020 2:18 PM EDT HERMAN week #1, contact #2. Discharged from [facility] 06/16/20. Discharge dx: diverticulitis, intractable nausea, and lower GI bleed. Post discharge IVR trigger - reporting nausea. Called and spoke with patient. Alert, oriented, pleasant. Reports home health nurse, from Dr Meza, came today and roberto blood. Lab results pending. -"I did ask them to send a copy to Dr Pinto." Denies chest pain. -denies any dizziness or unsteadiness with walking. Denies falls. Edema: "not bad", "just a little bit". Able to get shoes on easily. Denies increase in shortness of breath. -wearing oxygen as ordered at 2 LPM. Turns it up to 4 LPM at night. Denies cough. Pain: "I've always had pain." -denies new or uncontrolled pain. -informed patient that PCP sent in refill on her pain medication -right now, none at rest -if gets up to some IADL's, goes up to 3-4 -reports only taking the hydrocodone/acetaminophen once in AM, and once at night. Denies GI/ issues -denies any diarrhea -last BM was today Still eating/drinking okay. Reports continued issues with nausea. No vomiting. "I'm sick to my stomach." Reports she is taking all medications as ordered, except her antibiotic. She quit taking her erythromycin 3 times a day, and is only taking it once a day. -informed her it would not work to take care of the infection at one time a day. "Okay, I will go back to 3 times a day." -she has been taking if before meals as directed, but feels this increases her nausea. -recommended she try taking it after eating, and see if that helps. She will try that. Checking blood sugars as ordered. -FBS this morning was 211. "It was kind of high this morning." -reports after her medication, and her breakfast, it came down to 105 before lunch time -not sure why it went up, had cooked cabbage for supper, and no bedtime snack. Patient receiving post hospital discharge IVR calls, next one scheduled it for next week. Patient reports she has not received the [employer] Wishes and AD booklets CM had mailed to her. Reinforced role of dependency case manager. Encouraged to call with any issues or concerns. Patient has CM direct phone number and contact information. documented in this encounter Plan of Treatment Upcoming Encounters Date Type Specialty Care Team Description 07/26/2020 Office Visit Gastroenterology Lilibeth Edwards CRNP [address] [facility] [place] [address] 12/21/2020 Office Visit Internal Medicine Marcela Pinto MD [address] [facility] [address] [phone] Health Maintenance Due Date Last Done Comments Zoster Vaccines (2 of 3) 08/31/2012 07/06/2012 CKD PHOS USE SMARTSET 59763 03/22/2020 03/22/2019 DXA-EVERY 5 YRS-USE SMARTSET# 3348 TO ORDER 05/01/2020 05/01/2015, 06/19/2010, 06/19/2010, Additional history exists DIABETES-EYE EXAM 08/10/2020 08/10/2019, , 08/04/2017, Additional history exists DIABETES-HGBA1C EVERY 6 MONTHS 09/10/2020 03/10/2020, 02/02/2020, 08/26/2019, Additional history exists DIABETES-FOOT EXAM 10/19/2020 10/19/2019, 0 01/05/2019, 01/16/2018, Additional history exists CKD GFR USE SMARTSET 48275 11/27/202005/27, 05/18/2020, 03/10/2020, Additional history exists DIABETES-URINE MICROALBUMIN EVERY 12 MONTHS 12/08/2020 12/08/2019, 10/30/2019, 07/09/2019, Additional history exists CKD HGB USE SMARTSET 32145 05/27/202105/27, 05/18/2020, 04/03/2020, Additional history exists COLONOSCOPY-EVERY [...] home patient encounter- Primary Other specified examination Nausea without vomiting Gastro-esophageal reflux disease without esophagitis Esophageal reflux Type 2 diabetes mellitus with hemoglobin A1c goal of less than 7.5% ([facility]) Generalized osteoarthritis Generalized osteoarthrosis, unspecified site COPD, group B, 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 ([facility]) Nocturnal hypoxia Hypoxemia documented in this encounter Advance Directives Documents on File Type Date Recorded Patient Working Manager 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
--- OUTSIDE RECORDS SUMMARY | 2023-06-18 03:22 | External Medical Summary | Summary of Care ---
Author Name Unknown Organization [place] [address] Care Team Providers Care Head Of Biology Name Role Phone Alex Pinto MD Primary Care Provider [phone] Reason for Visit * Reason Comments case management Medication Refill Encounter Details Date Type Department Care Team Description 06/23/2020 Nut Packer Telephone Family Practice [facility] [address] [place], [place] [id number] Cici Gama, RN [address] [place] [address] [place] [address] case management; Medication Refill Allergies Active Allergy Reactions Severity Noted Date Comments Valsartan 07/10/2010 Enalapril 05/21/2006 Escitalopram Oxalate Nausea/vomiting 10/11/2009 Nauseated Iodinated Diagnostic Agents Nausea/vomiting 05/2010 IV Contrast Lisinopril 05/21/2006 Metoprolol Tartrate 11/18/2006 Made pulse low [place] Oil-Black Currant-Vit E 07/10/2010 Verapamil 03/21/2004 Bupropion [...] 01/05/2020 Active Glucose Blood ([employer] CONTOUR TEST) STRPIndications:Typ e 2 diabetes mellitus with hemoglobin A1c goal of less than 7.0% ([facility]) USE TO TEST BLOOD SUGAR [...] 1 02/28/2020 Active INCRUSE ELLIPTA 62.5 MCG/INH AEPBIndications:PRIMARY THERAPIST D, group B, 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 ([facility]) INHALE 1 PUFF BY MOUTH EVERY DAY 30 Each 3 03/09/2020 Active omeprazole (PRILOSEC) 20 MG CPDRIndications:Isc hemic colitis ([facility]) TAKE 1 CAPSULE BY MOUTH TWICE A DAY 180 Cap 1 03/17/2020 Active zafirlukast (ACCOLATE) 20 MG TabletIndications:A sthma [...] Pain, Mild. 120 Tab 0 06/28/2020 Active HYDROcodone-acetami nophen 5-325 mg per tab 5-325 MG per tabletIndications:G eneralized osteoarthritis Take 1 Tab by mouth every 6 hours as needed for Pain, Mild. 120 Tab 0 04/27/2020 0 Discontinu ed(Refill) documented as of this [...] Hypoxemia 10/08/2011 10/30/2015 Genetic Sleep Disorder Research Other*[id number] 07/25/2011 05/15/2016 Diverticulitis of colon 07/25/2011 01/06/20 [...] Telephone Encounter - Cici Gama RN - 06/28/2020 1:42 PM EDT Patient notified. * Telephone Encounter - Alex Pinto MD - 06/28/2020 11:02 AM EDT Signed Prescriptions: Disp Refills HYDROcodone-acetaminophen 5-325 mg per tab*120 Tab0 Sig: Take 1 Tab by mouth every 6 hours as needed for Pain, Mild. Authorizing Provider: ALEX PINTO * Telephone Encounter - Cici Gama RN - 06/23/2020 11:22 AM EDT Patient reports she is getting low on her pain pills, but not out yet. Was going to ask about refill when at appointment yesterday, but forgot. Not due to be refilled until Friday. Will post date the prescription. Pending Prescriptions: Disp Refills HYDROcodone-acetaminophen 5-325 mg per ta*120 Tab0 Sig: Take 1 Tab by mouth every 6 hours as needed for Pain, Mild. Last Office/Telemedicine Visit: 06/22/20 Next Office Visit: 12/21/20 If no future appointments scheduled, and last appointment is greater than a year ago, please schedule patient for a follow-up appointment Last date the medication was ordered: 04/27/20 Pharmacy: [id number] [address] [facility] Is this request for a controlled substance?Yes and Urine Drug Screen not completed Urine Drug Screen: Results for orders [...] Lab Results Component Value Date/Time CREAT 1.0 05/27/2020 04:51 PM POTASSIUM 4.0 05/27/2020 04:51 PM TSH 0.42 07/27/2018 11:32 AM LDLCALC 88.20 03/10/2020 LDLCALC 95 07/27/2018 11:32 AM LDLDIRECT 86 03/10/2020 LDLDIRECT 97 07/27/2018 11:32 AM ALT 15 05/27/2020 04:51 PM HGBA1C 7.0 (A) 03/10/2020 HGBA1C 6.6 (H) 08/26/2019 02:55 PM documented in this encounter Plan of Treatment Upcoming Encounters Date Type Specialty Care Team Description 06/28/2020 Home Visit Family Medicine Laura Anderson, [facility] Traffic Operations Engineer [address] [facility] [place] [address] [phone] 07/26/2020 Office Visit [facility]astroenter[facility] [address] [facility] [address] [phone] 12/21/2020 Office Visit Internal Medicine Alex Pinto MD [address] [place] [address] [phone] Health Maintenance Due Date Last Done Comments Zoster Vaccines (2 of 3) 08/31/2012 07/06/2012 CKD PHOS USE SMARTSET 17333 03/22/2020 03/22/2019 DXA-EVERY 5 YRS-USE SMARTSET# 3348 TO ORDER 05/01/2020 05/01/2015, 06/19/2010, 06/19/2010, Additional history exists DIABETES-EYE EXAM 08/10/2020 08/10/2019, , 08/04/2017, Additional history exists DIABETES-HGBA1C EVERY 6 MONTHS 09/10/2020 03/10/2020, 02/02/2020, 08/26/2019, Additional history exists DIABETES-FOOT EXAM 10/19/2020 10/19/2019, 0 01/05/2019, 01/16/2018, Additional history exists CKD GFR USE SMARTSET 80138 11/27/202005/27, 05/18/2020, 03/10/2020, Additional history exists DIABETES-URINE MICROALBUMIN EVERY 12 MONTHS 12/08/2020 12/08/2019, 10/30/2019, 07/09/2019, Additional history exists CKD HGB USE SMARTSET 40859 05/27/202105/27, 05/18/2020, 04/03/2020, Additional history exists COLONOSCOPY-EVERY [...] Documents on File Type Date Recorded Patient Top Polisher 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
--- OUTSIDE RECORDS SUMMARY | 2023-06-18 03:22 | External Medical Summary | Summary of Care ---
Author Name Unknown Organization [place] [address] Care Team Providers Care Ship Rigger Apprentice Name Role Phone Marcela Pinto MD Primary Care Provider [phone] Reason for Visit * Reason Comments case management Encounter Details Date Type Department Care Team Description 06/23/2020 Programming DirectorOil Filters Inspector Practice [facility] [address] [place], [place] [id number] Cici Gama, BIJAL [address] [place] [address] [place] [address] Medical home patient encounter*; Hospital discharge follow-up; Diverticulitis of colon; Nausea; Lower GI bleed Allergies Active Allergy Reactions Severity Noted Date Comments Valsartan 07/10/2010 Enalapril 05/21/2006 Escitalopram Oxalate Nausea/vomiting 10/11/2009 Nauseated Iodinated Diagnostic Agents Nausea/vomiting 05/2010 IV Contrast Lisinopril 05/21/2006 Metoprolol Tartrate 11/18/2006 Made pulse low [place] Oil-Black Currant-Vit E 07/10/2010 Verapamil 03/21/2004 Bupropion Hcl 10/30/2009 Makes pt sick in the stomach documented as of this encounter (statuses as of 06/23/2020) Medications Medication Sig Dispensed Refills Start Date [...] 300 Each 1 01/05/2020 Active Glucose Blood ([employer] CONTOUR TEST) STRPIndications:Type 2 diabetes mellitus with hemoglobin A1c goal of less than 7.0% ([facility]) USE TO TEST BLOOD SUGAR 3 TIMES A DAY FOR DIAGNOSIS CODE OF E11.9 300 Strip 1 01/05/2020 Active Blood Glucose Monitoring Suppl (CONTOUR MONITOR) w/Device KIT USE TO TEST BLOOD SUGAR 3 TIMES A DAY FOR DIAGNOSIS CODE OF E11.9 1 Kit 0 01/05/2020 Active COMBIVENT RESPIMAT 20-100 MCG/ACT InhalerIndications:A sthma with severity to be determined,COPD, moderate ([facility]) TAKE 1 PUFF BY MOUTH 4 TIMES A DAY 12 g 3 01/14/2020 Active atorvaSTATin (LIPITOR) 40 MG TabletIndications:Hy perlipidemia with target LDL less than 100 TAKE 1 TABLET BY MOUTH EVERY DAY 90 Tab 1 02/28/2020 Active INCRUSE ELLIPTA 62.5 MCG/INH AEPBIndications:COPD , group B, 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 ([facility]) INHALE 1 PUFF BY MOUTH EVERY DAY 30 Each 3 03/09/2020 Active omeprazole (PRILOSEC) 20 MG CPDRIndications:Isch emic colitis ([facility]) TAKE 1 CAPSULE BY MOUTH TWICE A DAY 180 Cap 1 03/17/2020 Active zafirlukast (ACCOLATE) 20 MG TabletIndications:As thma with severity to be determined TAKE 1 TABLET BY MOUTH EVERY DAY 90 Tab 1 03/22/2020 Active HYDROcodone-acetamin ophen 5-325 mg per tab 5-325 MG per tabletIndications:Ge neralized osteoarthritis Take 1 Tab by mouth every 6 hours as needed for Pain, Mild. 120 Tab 0 04/27/2020 Active Potassium Chloride Annalisa ER (KLOR-CON M20) [...] as of this encounter (statuses as of 06/23/2020) Active Problems Problem Noted Date Diabetes mellitus [...] as of this encounter (statuses as of 06/23/2020) Resolved Problems Problem Noted Date Resolved Date [...] Hypoxemia 10/08/2011 10/30/2015 Genetic Sleep Disorder Research Other*[id number] 07/25/2011 05/15/2016 Diverticulitis of colon 07/25/2011 01/06/20 [...] as of this encounter (statuses as of 06/23/2020) Immunizations Name Administration Dates Next Due Hepatitis [...] Progress Notes * Cici Gama RN - 06/23/2020 11:22 AM EDT Case Management Assessment - HERMAN Assessment Risk Adm/ER: 48% High Risk Is this call for a hospital, fci or rehab facility discharge to home? Yes - patient was inpatient at [facility] from 06/02/20 to 06/16/20. Discharge dx: diverticulitis, intractable nausea, and lower GI bleed. S: Reports: Increased edema: peripheral edema: "a wee bit" Chest pain - denies -had dizziness in hospital due to low blood pressure, none since home Increased shortness of breath: reports breathing as "okay". cough denies oxygen concentrator, portable, 2L-rest, 2L-activity/exercise and 4L-sleep -non smoker Chills / Sweats / Fever: denies chills/sweats and denies fever Fall: denies any falls in past year assistive device:none Appetite: Reports appetite/intake as "okay" -ongoing nausea. Medication helps. -denies vomiting. -denies heartburn, or gas. Bowel: moving okay with aide of colace. -denies diarrhea -last BM was yesterday Bladder: denies problems -occasional stress incontinence, wears a pad just in case Medications: takes all medications as prescribed. and denies side effects Chronic Pain: low back pain -managed with hydrocodone-acetaminophen, and rest. -worried about running out of medication, getting low. Requesting refill. -current pain level rated at 3-4. When at it's worst, rated 8-9. When at its best, rated 3-4. -denies headaches Does Patient have Type 2 DM ? Yes. Does this patient take sulfonylureas and/or basal insulin? Yes. 1. Do you know what the symptoms of hypoglycemia are? yes 2. How often can you tell by your symptoms if your blood sugar is low? Always 3. In a typical week, how many times will your blood sugar go below 70 mg/dL? Never -uses [place] Contour glucometer to monitor blood sugars -checks blood sugars 3 x day -FBS today was 138 -highest since home: 176 -lowest since home: 93 Blood Pressure: at yesterday's office visit it was 126/64, with a pulse of 74. Mood: denies issues with depression or anxiety Cognition: reports memory as "pretty good", "I forget some things." O: Phone visit for post hospital discharge follow up. Spoke with patient. Alert, oriented, pleasant. Will be active with home health from [facility]. Reports they called yesterday while she was at PCP appointment. She called them back. Initial visit to be made on 06/25/20. Patient livesalone, in a trailer, with 3 steps to enter. Wears glasses for reading only. Medications: takes all medications as prescribed. and denies side effects -confirmed patient is using all 3 inhalers as ordered -confirmed patient is using nebulizer twice daily -patient reports using bentyl, phergan, and occasional zofran for GI issues, andrés ongoing nausea. -confirmed using oxygen during day 2 LPM, and at night at 4 LPM. -received [id number] flu vaccine yesterday at office visit -taking colace to help with bowel movements -using her hydrocodone-acetaminophen to manage her pain A: Patient Centered Prioritized Goals: Patient will have pain well managed. Development of self - management action plan with patient/caregiver/ provider. Patient and caregiver demonstrate basic understanding of their disease process. Patient/ caregiver demonstrates adherence to treatment plan. Identified Barriers: Older than 70 years and Poor/inadequate support FUNCTIONAL STATUS: (Definition - assess ability to [...] to communicate, understand instructions, process information. P: Programming Director Interventions: Established Self Management Action Plan. Instructed on "call back instructions" if urine outputs decrease, symptoms increase - such as abdominal pain, nausea, vomiting, diarrhea, constipation, blood in stool, blood sugars >250 or <70 more than twice a week, palpitations for fluttering, dizziness, increased swelling/edema, increased shortness of breath/cough, increased congestion or wheezing, expectoration of green sputum, syncope,falls or injury, new or uncontrolled pain, or any other changes in condition. Updated managing provider Reinforced sodium restriction Reinforced CHO consistency Reinforced safety education / fall prevention Reinforced medication regimen - timing / dosing / purpose Med rec completed with patient by office visit nurseRenetta, yesterday, and most of list reviewed today, again, with CM Confirmed pharmacy [facility] choice as [facility] in [place]. Not eligible for [email or web address] referral. Discussed Advance Directives: none in place. Receptive to completing. CM to mail Five Wishes and ADbooklets. Does wants life prolonging measures of tube feedings or respirators. Referral placed for [facility] home visit due to being High Risk for readmission. [facility] will assess home safety, compliance with diabetic diet, perform CAT survey, assess for safe use of home oxygen, and perform in-home med rec. Enrolled in post discharge IVR calls, weekly x 4, on wednesdays at noon, starting 06/28/20. Confirmed upcoming appointments with gastroenterology, cardiology, and PCP. Explained role of protective services case worker. Encouraged to call with any issues or concerns. Gave direct phone number and contact information. PCP Notified of enrollment in CM/HM program: No SNP Member? No Re-evaluation of plan of care and progress towards goals achievement: LDL at goal of <100, BP was at goal of <140/90, A1c at goal of <7.5, taking medications as ordered, plans to keep appointments as scheduled, receptive to completing Advance Directives, got flu shot yesterday, and receptive to participating with case management. Plan to call patient next week to reassess and update plan of care, instructed to call Case Manageror Primary Care Provider with change in symptoms or as needed before next follow-up Cici Gama RN Outpatient Programming Director documented in this encounter Plan of Treatment Upcoming Encounters Date Type Specialty Care Team Description 06/28/2020 [facility] Dredge Operator [address] [place] [address] [phone] 07/26/2020 Office Visit Gastroenterology Lilibeth Edwards CRNP [address] [place] [address] [phone] 12/21/2020 Office Visit Internal Medicine Marcela Pinto MD [address] [facility] [place] [address] [phone] Health Maintenance Due Date Last Done Comments Zoster Vaccines (2 of 3) 08/31/2012 07/06/2012 CKD PHOS USE SMARTSET 69407 03/22/2020 03/22/2019 DXA-EVERY 5 YRS-USE SMARTSET# 3348 TO ORDER 05/01/2020 05/01/2015, 06/19/2010, 06/19/2010, Additional history exists DIABETES-EYE EXAM 08/10/2020 08/10/2019, , 08/04/2017, Additional history exists DIABETES-HGBA1C EVERY 6 MONTHS 09/10/2020 03/10/2020, 02/02/2020, 08/26/2019, Additional history exists DIABETES-FOOT EXAM 10/19/2020 10/19/2019, 0 01/05/2019, 01/16/2018, Additional history exists CKD GFR USE SMARTSET 64662 11/27/202005/27, 05/18/2020, 03/10/2020, Additional history exists DIABETES-URINE MICROALBUMIN EVERY 12 MONTHS 12/08/2020 12/08/2019, 10/30/2019, 07/09/2019, Additional history exists CKD HGB USE SMARTSET 17747 05/27/202105/27, 05/18/2020, 04/03/2020, Additional history exists COLONOSCOPY-EVERY [...] Diverticulitis of colon (without mention of hemorrhage) Nausea Nausea alone Lower GI bleed Hemorrhage of gastrointestinal tract, unspecified documented in this encounter Advance Directives Documents on File Type Date Recorded Patient Cokeman 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
--- OUTSIDE RECORDS SUMMARY | 2023-06-18 03:22 | External Medical Summary | Summary of Care ---
Author Name Unknown Organization [place] [address] Care Team Providers Care Nursery Worker Name Role Phone Marcela Pinto MD Primary Care Provider Encounter Details Date Type Department Care Team Description 06/29/2020 Orders Only General Internal Medicine [facility] [address] [place], [place] [id number] Marcela Pinto MD [address] [facility] [address] [place], [place] [id number] Allergies Active Allergy Reactions Severity Noted Date Comments Valsartan 07/10/2010 Enalapril 05/21/2006 Escitalopram Oxalate Nausea/vomiting 10/11/2009 Nauseated Iodinated Diagnostic Agents Nausea/vomiting 05/2010 IV Contrast Lisinopril 05/21/2006 Metoprolol Tartrate 11/18/2006 Made pulse low [place] Oil-Black Currant-Vit E 07/10/2010 Verapamil 03/21/2004 Bupropion [...] of less than 7.0% ([facility]) USE TO TEST BLOOD SUGAR 3 TIMES A DAY FOR DIAGNOSIS CODE OF E11.9 300 Strip 1 01/05/2020 Active Blood Glucose Monitoring Suppl (CONTOUR MONITOR) w/Device KIT USE TO TEST BLOOD SUGAR 3 TIMES A DAY FOR DIAGNOSIS CODE OF E11.9 1 Kit 0 01/05/2020 Active COMBIVENT RESPIMAT 20-100 MCG/ACT InhalerIndications:A sthma with severity to be determined,COPD, moderate ([facility]) TAKE 1 PUFF BY MOUTH 4 TIMES A DAY 12 g 3 01/14/2020 Active atorvaSTATin (LIPITOR) 40 MG TabletIndications:Hy perlipidemia with target LDL less than 100 TAKE 1 TABLET BY MOUTH EVERY DAY 90 Tab 1 02/28/2020 Active INCRUSE ELLIPTA 62.5 MCG/INH AEPBIndications:COPD , group B, 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 ([facility]) INHALE 1 PUFF BY MOUTH EVERY DAY 30 Each 3 03/09/2020 Active omeprazole (PRILOSEC) 20 MG CPDRIndications:Isch emic colitis ([facility]) TAKE 1 CAPSULE BY MOUTH [...] Hypoxemia 10/08/2011 10/30/2015 Genetic Sleep Disorder Research Other*[id number] 07/25/2011 05/15/2016 Diverticulitis of colon 07/25/2011 01/06/20 [...] Lilibeth Edwards CRNP [address] [place] [address] [phone] 08/08/2020 Imaging Radiology 12/21/2020 Office Visit Internal Medicine Marcela Pinto MD [address] [facility] [place] [address] [phone] Health Maintenance Due Date Last Done Comments Zoster Vaccines (2 of 3) 08/31/2012 07/06/2012 CKD PHOS USE SMARTSET 99405 03/22/2020 03/22/2019 DXA-EVERY 5 YRS-USE SMARTSET# 3348 TO ORDER 05/01/2020 05/01/2015, 06/19/2010, 06/19/2010, Additional history exists DIABETES-EYE EXAM 08/10/2020 08/10/2019, , 08/04/2017, Additional history exists DIABETES-HGBA1C EVERY 6 MONTHS 09/10/2020 03/10/2020, 02/02/2020, 08/26/2019, Additional history exists DIABETES-FOOT EXAM 10/19/2020 10/19/2019, 0 01/05/2019, 01/16/2018, Additional history exists CKD GFR USE SMARTSET 16340 11/27/202005/27, 05/18/2020, 03/10/2020, Additional history exists DIABETES-URINE MICROALBUMIN EVERY 12 MONTHS 12/08/2020 12/08/2019, 10/30/2019, 07/09/2019, Additional history exists CKD HGB USE SMARTSET 82401 05/27/202105/27, 05/18/2020, 04/03/2020, Additional history exists COLONOSCOPY-EVERY [...] Priority Date/Time Associated Diagnosis Comments CHEMISTRY-OUTSIDE Routine 06/28/2020 documented in this encounter Results * CHEMISTRY-OUTSIDE (06/28/2020) CREATININE-OUTSIDE LAB OUTSIDE LAB (SEE SCANNED REPORT) [...] LAB OUTSIDE LAB (SEE SCANNED REPORT) HEMOGLOBIN, V4E-ZTUIFLF LAB OUTSIDE LAB (SEE SCANNED REPORT) PHOSPHORUS-OUTSIDE LAB OUTSIDE LAB (SEE SCANNED REPORT) PTH-OUTSIDE LAB OUTSIDE LAB (SEE SCANNED REPORT) MICROALBUMIN RATIO-OUTSIDE LAB OUTSIDE LAB (SEE SCANNED REPORT) PROTEIN, UA-OUTSIDE LAB OUTSIDE LAB (SEE SCANNED REPORT) HEMOGLOBIN-OUTSIDE LAB 9.2(A) 12.0 - 16.0 GM/DL OUTSIDE LAB (SEE SCANNED REPORT) CHEMISTRY COMMENT-OUTSIDE LAB Comment:SEE SCAN: CBC OUTSIDE LAB (SEE SCANNED REPORT) Specimen Narrative Performed At Performing Organization Address City/State/Zipcod e Phone Number OUTSIDE LAB (SEE SCANNED REPORT) documented in this encounter Advance Directives Documents on File Type Date Recorded Patient Fabricator Special Items 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
--- OUTSIDE RECORDS SUMMARY | 2023-06-18 03:22 | External Medical Summary | Summary of Care ---
Author Name Unknown Organization [place] [address] Care Team Providers Care Nascar Pit Crew Person Name Role Phone Marcela Pinto MD Primary Care Provider [phone] Reason for Visit * Reason Comments Advice Encounter Details Date Type Department Care Team Description 06/21/2020 Telephone Gastroenterology, [facility] [address] [facility] [place] [address] [place], [address] [place] [address] Advice Allergies Active Allergy Reactions Severity Noted Date Comments Valsartan 07/10/2010 Enalapril 05/21/2006 Escitalopram Oxalate Nausea/vomiting 10/11/2009 Nauseated Iodinated Diagnostic Agents Nausea/vomiting 05/2010 IV Contrast Lisinopril 05/21/2006 Metoprolol Tartrate 11/18/2006 Made pulse low [place] Oil-Black Currant-Vit E 07/10/2010 Verapamil 03/21/2004 Bupropion Hcl 10/30/2009 Makes pt sick in the stomach documented as of this encounter (statuses as of 06/22/2020) Medications Medication Sig Dispensed Refills Start Date [...] day. ., Reported on 12/30/2019 10:10 AM aspirin enteric coated 81 MG TBEC Take 1 Tab by mouth daily. 100 Tab 3 03/16/2017 Active Multiple Vitamins-Minerals (ONE DAILY MULTIVITAMIN WOMEN) [...] goal of less than 7.5% (HCC) Take 4 mg by mouth daily before breakfast. 90 [...] 300 Each 1 01/05/2020 Active Glucose Blood ([employer] CONTOUR TEST) STRPIndications:Type 2 diabetes mellitus with hemoglobin A1c goal of less than 7.0% ([facility]) USE TO TEST BLOOD SUGAR 3 TIMES [...] , group B, 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 ([facility]) INHALE 1 PUFF BY MOUTH EVERY DAY 30 Each 3 03/09/2020 Active omeprazole (PRILOSEC) 20 MG CPDRIndications:Isch emic colitis ([facility]) TAKE 1 CAPSULE BY MOUTH TWICE A DAY 180 Cap 1 03/17/2020 Active ondansetron ODT (ZOFRAN) 8 MG TBDPIndications:Naus ea DISSOLVE 1 TABLET ON TONGUE EVERY 8 HOURS NEEDED FOR NAUSEA 60 Tab 5 03/21/2020 Active zafirlukast (ACCOLATE) 20 MG TabletIndications:As thma [...] and one or two tablets in the afternoon, Reported on 05/18/2020 12:41 PM dilTIAZem HCl ER Beads 360 MG [id number]:HTN, goal below 130/80 TAKE 1 CAPSULE BY MOUTH EVERY DAY 90 Cap 1 05/16/2020 Active Ketoconazole 2 % cream Apply topically to affected area 2 times a day for 42 days. Apply to groin area 60 g 11 05/27/2020 0 Active documented as of this encounter (statuses as of 06/22/2020) Active Problems Problem Noted Date Diabetes mellitus [...] as of this encounter (statuses as of 06/22/2020) Resolved Problems Problem Noted Date Resolved Date [...] Hypoxemia 10/08/2011 10/30/2015 Genetic Sleep Disorder Research Other*[id number] 07/25/2011 05/15/2016 Diverticulitis of colon 07/25/2011 01/06/20 [...] as of this encounter (statuses as of 06/22/2020) Immunizations Name Administration Dates Next Due Hepatitis B, 20+ yrs 10/01/2017,04/21/2017,03/20 Pneumococcal Conjugate Vacc, 13 Valent (Prevnar) 03/28/2015 Pneumococcal Polysaccharide PPV23 (Pneumovax) 05/21/2006 Seasonal Influenza, Quadriva lent, No Preserve, 6 Mons & Above, IM 06/16/2018,07/30/2017 Seasonal Influenza, Quadriva lent, No Preserve, IM [...] encounter Miscellaneous Notes * Telephone Encounter - Radha Valencia RN - 06/22/2020 10:02 AM EDT This has been fully explained to the patient, who indicates understanding. Hospital follow up rescheduled. * Telephone Encounter - Zulay Eagle DO - 06/22/2020 9:01 AM EDT We had suggested use of Erythromycin for 2 weeks, then stop. Can we have her see one of the oil recovery unit operator in 4 to 6 weeks. * Telephone Encounter - Tasha Duong LPN - 06/21/2020 3:06 PM EDT Pt calling in and stating that she was in the hospital and discharged on Friday.( for nausea and GIbleed) They had given her a script of " erythromycin " to take before meals. Pt just got this filled today. Pt saw agricultural equipment sales engineer today at [facility] and per pt- her agricultural equipment sales engineer wants to make sure she is still to be taking this medication. Pt was prescribed a 30 day supply and pt has a follow up with us on 07/12/2020. ( ;in the [facility] discharge it does have her discharged with this for 30 days ) Pt would like a call back Please advise. * Telephone Encounter - Sigrid Ray OSA - 06/21/2020 3:01 PM EDT Reason for patient's call: Medication question, Pt was prescribed erythromycin in hospital Caller was transferred to Tasha at the nurse line. documented in this encounter Plan of Treatment Upcoming Encounters Date Type Specialty Care Team Description 06/22/2020 Office Visit Internal Medicine Marcela Pinto MD [address] [place] [address] [phone] 06/27/2020 Imaging Radiology 07/26/2020 Office Visit Gastroenterology Lilibeth Edwards, NIECY [address] [place] [address] [phone] 08/08/2020 Office Visit Internal Medicine Marcela Pinto MD [address] [facility] [place] [address] [phone] 11/23/2020 Office Visit Internal Medicine Marcela Pinto MD [address] [facility] [place], [place] [address] [phone] Health Maintenance Due Date Last Done Comments Zoster Vaccines (2 of 3) 08/31/2012 07/06/2012 CKD PHOS USE SMARTSET 28971 03/22/2020 03/22/2019 DXA-EVERY 5 YRS-USE SMARTSET# 3348 TO ORDER 05/01/2020 05/01/2015, 06/19/2010, 06/19/2010, Additional history exists Influenza Vaccine (FLU shot) (#1) 2020 07/09/2019, 06/16/2018, 07/30/2017, Additional history exists DIABETES-EYE EXAM 08/10/2020 08/10/2019, , 08/04/2017, Additional history exists DIABETES-HGBA1C EVERY 6 MONTHS 09/10/2020 03/10/2020, 02/02/2020, 08/26/2019, Additional history exists DIABETES-FOOT EXAM 10/19/2020 10/19/2019, 0 01/05/2019, 01/16/2018, Additional history exists CKD GFR USE SMARTSET 45141 11/27/202005/27, 05/18/2020, 03/10/2020, Additional history exists DIABETES-URINE MICROALBUMIN EVERY 12 MONTHS 12/08/2020 12/08/2019, 10/30/2019, 07/09/2019, Additional history exists CKD HGB USE SMARTSET 11613 05/27/202105/27, 05/18/2020, 04/03/2020, Additional history exists COLONOSCOPY-EVERY 3 YRS AGES 18-100 05/08/2023 05/08/2020, 02/28/2018, 06/05/2017, Additional history exists DTaP,Tdap,and Td Vaccines (2 - Td) 06/04/2028 06/04/2018, 02/28/2009 Pneumococcal Vaccine: 65+ Years Completed 03/28/2015, 05/21/2006 MENINGOCOCCAL (MENACTRA/MENVEO) Aged Out No longer eligible based on patient's age to complete this topic documented as of this encounter Implants Not on filedocumented as of this encounter Advance Directives Documents on File Type Date Recorded Patient Collection Analyst 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
--- OUTSIDE RECORDS SUMMARY | 2023-06-18 03:22 | External Medical Summary | Summary of Care ---
Author Name Unknown Organization [place] [address] Care Team Providers Care Screen Printing Machine Operator Name Role Phone Marcela Pinto MD Primary Care Provider [phone] Reason for Visit * Reason Comments Status Check Encounter Details Date Type Department Care Team Description 06/28/2020 Telephone General Internal Medicine [facility] [address] [place] [address] Marcela Pinto MD [address] [place] [address] [phone] Status Check Allergies Active Allergy Reactions Severity Noted Date Comments Valsartan 07/10/2010 Enalapril 05/21/2006 Escitalopram Oxalate Nausea/vomiting 10/11/2009 Nauseated Iodinated Diagnostic Agents Nausea/vomiting 05/2010 IV Contrast Lisinopril 05/21/2006 Metoprolol Tartrate 11/18/2006 Made pulse low [place] Oil-Black Currant-Vit E 07/10/2010 Verapamil 03/21/2004 Bupropion [...] Hypoxemia 10/08/2011 10/30/2015 Genetic Sleep Disorder Research Other*[id number] 07/25/2011 05/15/2016 Diverticulitis of colon 07/25/2011 01/06/20 [...] encounter Miscellaneous Notes * Telephone Encounter - Aria Barnhart CPhT - 06/28/2020 1:19 PM EDT Pt calling to request refills on the Rx for hydrocodone-acetam Informed pt that there are valid refills on file at their pharmacy. Pt verbalized understanding and stated they will check with their pharmacy regarding this medication. Thank you, Aria Barnhart CPhT [employer] 06/28/2020, 1:20 PM documented in this encounter Plan of Treatment Upcoming Encounters Date Type Specialty Care Team Description 06/28/2020 Home Visit Family Medicine Laura Anderson, Community [facility] Corporate Librarian [address] [place] [address] 07/26/2020 Office Visit Gastroenterology Lilibeth Edwards CRNP [address] [place] [address] 12/21/2020 Office Visit Internal Medicine Marcela Pinto MD [address] [place] [address] [phone] Health Maintenance Due Date Last Done Comments Zoster Vaccines (2 of 3) 08/31/2012 07/06/2012 CKD PHOS USE SMARTSET 87489 03/22/2020 03/22/2019 DXA-EVERY 5 YRS-USE SMARTSET# 3348 TO ORDER 05/01/2020 05/01/2015, 06/19/2010, 06/19/2010, Additional history exists DIABETES-EYE EXAM 08/10/2020 08/10/2019, , 08/04/2017, Additional history exists DIABETES-HGBA1C EVERY 6 MONTHS 09/10/2020 03/10/2020, 02/02/2020, 08/26/2019, Additional history exists DIABETES-FOOT EXAM 10/19/2020 10/19/2019, 0 01/05/2019, 01/16/2018, Additional history exists CKD GFR USE SMARTSET 02924 11/27/202005/27, 05/18/2020, 03/10/2020, Additional history exists DIABETES-URINE MICROALBUMIN EVERY 12 MONTHS 12/08/2020 12/08/2019, 10/30/2019, 07/09/2019, Additional history exists CKD HGB USE SMARTSET 36386 05/27/202105/27, 05/18/2020, 04/03/2020, Additional history exists COLONOSCOPY-EVERY [...] Documents on File Type Date Recorded Patient Wine Manager 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
--- OUTSIDE RECORDS SUMMARY | 2023-06-18 03:22 | External Medical Summary | Summary of Care ---
Author Name Unknown Organization [place] [address] Care Team Providers Care Licensed Certified Orthotist Name Role Phone Marcela Pinto MD Primary Care Provider [phone] Encounter Details Date Type Department Care Team Description 06/28/2020 Home Visit Care Coordination [address] [place] [address] Laura Anderson, [facility] Juvenile Corrections Officer [address] [place] [address] [phone] Allergies Active Allergy Reactions Severity Noted Date Comments Valsartan 07/10/2010 Enalapril 05/21/2006 Escitalopram Oxalate Nausea/vomiting 10/11/2009 Nauseated Iodinated Diagnostic Agents Nausea/vomiting 05/2010 IV Contrast Lisinopril 05/21/2006 Metoprolol Tartrate 11/18/2006 Made pulse low [place] Oil-Black Currant-Vit E 07/10/2010 Verapamil 03/21/2004 Bupropion [...] sthma with severity to be determined,COPD, moderate ([facility]) TAKE 1 PUFF BY MOUTH 4 TIMES A DAY 12 g 3 01/14/2020 Active atorvaSTATin (LIPITOR) 40 MG TabletIndications:Hy perlipidemia with target LDL less than 100 TAKE 1 TABLET BY MOUTH EVERY DAY 90 Tab 1 02/28/2020 Active INCRUSE ELLIPTA 62.5 MCG/INH AEPBIndications:COPD , group B, 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 ([facility]) INHALE 1 PUFF BY MOUTH EVERY DAY 30 Each 3 03/09/2020 Active omeprazole (PRILOSEC) 20 MG CPDRIndications:Isch emic colitis ([facility]) TAKE 1 CAPSULE BY MOUTH [...] Hypoxemia 10/08/2011 10/30/2015 Genetic Sleep Disorder Research Other*[id number] 07/25/2011 05/15/2016 Diverticulitis of colon 07/25/2011 01/06/20 [...] as of this encounter Progress Notes * Laura Anderson, Community [facility] Juvenile Corrections Officer - 06/28/2020 2:16 PM EDT Community Health Juvenile Corrections Officer Visit Date: 06/28/2020 Time: 2:16 PM Name: [...] if she needs it. Prescribed by "lung dr" at [facility]. Senna-takes rarely "once in a great [...] this visit: No Last flowsheet values for [facility]: COPD Checklist COPD SAJAN ([facility] Juvenile Corrections Officer) Checklist The patient uses oxygen: Yes Tanks are stored: tanks lv rm/uses AHP Compressor located away from anything flammable: bedroon Oxygen tubing: - Clean and in good repair: Yes - Reached out to Durable Medical Equipment supplier for replacement tubing: No, not needed - Referred to Pick Up Operator for additional in-home respiratory assessment: No, - Other: Describe how the patient manages going out with oxygen: Does not go without since last hospitilazation - Referred to Pick Up Operator for portable oxygen order: No - Coordinated [...] for COPD Assessment Test (CAT): Plan: Notified Provider/Pick Up Operatormold insert changer in condition Follow Up: Patient encouraged to call the intake phone number for all urgent but not emergent issues. Scheduled to follow up with patient as needed. . [facility] 06/28/2020 2:16 PM documented in this encounter Plan of Treatment Upcoming Encounters Date Type Specialty Care Team Description 07/26/2020 Office Visit Gastroenterology Lilibeth Edwards CRNP [address] [facility] [place] [address] [phone] 12/21/2020 Office Visit Internal Medicine Marcela Pinto MD [address] [facility] [place] [address] [phone] Health Maintenance Due Date Last Done Comments Zoster Vaccines (2 of 3) 08/31/2012 07/06/2012 CKD PHOS USE SMARTSET 60295 03/22/2020 03/22/2019 DXA-EVERY 5 YRS-USE SMARTSET# 3348 TO ORDER 05/01/2020 05/01/2015, 06/19/2010, 06/19/2010, Additional history exists DIABETES-EYE EXAM 08/10/2020 08/10/2019, , 08/04/2017, Additional history exists DIABETES-HGBA1C EVERY 6 MONTHS 09/10/2020 03/10/2020, 02/02/2020, 08/26/2019, Additional history exists DIABETES-FOOT EXAM 10/19/2020 10/19/2019, 0 01/05/2019, 01/16/2018, Additional history exists CKD GFR USE SMARTSET 30867 11/27/202005/27, 05/18/2020, 03/10/2020, Additional history exists DIABETES-URINE MICROALBUMIN EVERY 12 MONTHS 12/08/2020 12/08/2019, 10/30/2019, 07/09/2019, Additional history exists CKD HGB USE SMARTSET 20818 05/27/202105/27, 05/18/2020, 04/03/2020, Additional history exists COLONOSCOPY-EVERY [...] Documents on File Type Date Recorded Patient Visual Designer 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
--- OUTSIDE RECORDS SUMMARY | 2023-06-18 03:22 | External Medical Summary | Summary of Care ---
Author Name Unknown Organization [place] [address] Care Team Providers Care Studio Operations Engineer In Charge Name Role Phone Marcela Pinto MD Primary Care Provider [phone] Encounter Details Date Type Department Care Team Description 06/29/2020 Orders Only General Internal Medicine [facility] [address] [place], [place] [id number] Marcela Pinto MD [address] [facility] [address] [place], [place] [id number] Allergies Active Allergy Reactions Severity Noted Date Comments Valsartan 07/10/2010 Enalapril 05/21/2006 Escitalopram Oxalate Nausea/vomiting 10/11/2009 Nauseated Iodinated Diagnostic Agents Nausea/vomiting 05/2010 IV Contrast Lisinopril 05/21/2006 Metoprolol Tartrate 11/18/2006 Made pulse low [place] Oil-Black Currant-Vit E 07/10/2010 Verapamil 03/21/2004 [...] less than 7.0% ([facility]) Use as directed. USE TO TEST BLOOD SUGAR 3 TIMES A DAY FOR DIAGNOSIS CODE OF E11.9 300 Each 1 01/05/2020 Active Glucose Blood (YEIMY CONTOUR TEST) STRPIndications:Type 2 diabetes mellitus with hemoglobin A1c goal of less than 7.0% ([facility]) USE TO TEST BLOOD SUGAR 3 TIMES [...] 20 MG CPDRIndications:Isch emic colitis ([facility]) TAKE 1 CAPSULE BY MOUTH TWICE A [...] Hypoxemia 10/08/2011 10/30/2015 Genetic Sleep Disorder Research Other*[id number] 07/25/2011 05/15/2016 Diverticulitis of colon 07/25/2011 01/06/20 [...] Lilibeth Edwards CRNP [address] [place] [address] [phone] 08/08/2020 Imaging Radiology 12/21/2020 Office Visit Internal Medicine Marcela Pinto MD [address] [facility] [place] [address] [phone] Health Maintenance Due Date Last Done Comments Zoster Vaccines (2 of 3) 08/31/2012 07/06/2012 CKD PHOS USE SMARTSET 51050 03/22/2020 03/22/2019 DXA-EVERY 5 YRS-USE SMARTSET# 3348 TO ORDER 05/01/2020 05/01/2015, 06/19/2010, 06/19/2010, Additional history exists DIABETES-EYE EXAM 08/10/2020 08/10/2019, , 08/04/2017, Additional history exists DIABETES-HGBA1C EVERY 6 MONTHS 09/10/2020 03/10/2020, 02/02/2020, 08/26/2019, Additional history exists DIABETES-FOOT EXAM 10/19/2020 10/19/2019, 0 01/05/2019, 01/16/2018, Additional history exists CKD GFR USE SMARTSET 17079 11/27/202005/27, 05/18/2020, 03/10/2020, Additional history exists DIABETES-URINE MICROALBUMIN EVERY 12 MONTHS 12/08/2020 12/08/2019, 10/30/2019, 07/09/2019, Additional history exists CKD HGB USE SMARTSET 04389 05/27/202105/27, 05/18/2020, 04/03/2020, Additional history exists COLONOSCOPY-EVERY [...] Date/Time Associated Diagnosis Comments CHEMISTRY-OUTSIDE Routine 06/28/2020 TSH Routine 06/28/2020 documented in this encounter Results * TSH (06/28/2020) TSH - OUTSIDE LAB 0.241(A) 0.360 - 3.740 MCIU/ML OUTSIDE LAB (SEE SCANNED REPORT) Specimen Narrative Performed At Performing Organization Address City/State/Zipcod e Phone Number OUTSIDE LAB (SEE SCANNED REPORT) * CHEMISTRY-OUTSIDE (06/28/2020) CREATININE-OUTSIDE LAB 1.03(A) 0.55 - 1.02 MG/DL OUTSIDE LAB (SEE SCANNED REPORT) EGFR-OUTSIDE LAB 55(A) >60 ML/MIN OUTSIDE LAB (SEE SCANNED REPORT) POTASSIUM-OUTSIDE LAB 3.0(A) 3.5 - 5.1 MMOL/L OUTSIDE LAB (SEE SCANNED REPORT) GLUCOSE-OUTSIDE LAB 141(A) 70 - 110 MG/DL OUTSIDE LAB (SEE SCANNED REPORT) HOURS FASTING OUTSIDE LAB (S EE SCANNED REPORT) TRIGLYCERIDES-OUTSIDE LAB 190 30 - 200 MG/DL OUTSIDE LAB (SEE SCANNED REPORT) CHOLESTEROL-OUTSIDE LAB 191 <200 MG/DL OUTSIDE LAB (SEE SCANNED REPORT) HDL-OUTSIDE LAB 49.0 40.0 - 59.0 MG/DL OUTSIDE LAB (SEE SCANNED REPORT) CHOL/HDL RATIO-OUTSIDE LAB OUTSIDE LAB (SEE SCANNED REPORT) LDL (CALCULATED)-OUTSIDE LAB 104.00 <100 MG/DL OUTSIDE LAB (SEE SCANNED REPORT) LDL (DIRECT MEASURE)-OUTSIDE LAB 116(A) <100 MG/DL OUTSIDE LAB (SEE SCANNED REPORT) HEMOGLOBIN, M7S-OFFHFRJ LAB 6.0(A) 3.5 - 5.6 % OUTSIDE LAB (SEE SCANNED REPORT) PHOSPHORUS-OUTSIDE LAB OUTSIDE LAB (SEE SCANNED REPORT) PTH-OUTSIDE LAB OUTSIDE LAB (SEE SCANNED REPORT) MICROALBUMIN RATIO-OUTSIDE LAB OUTSIDE LAB (SEE SCANNED REPORT) PROTEIN, UA-OUTSIDE LAB OUTSIDE LAB (SEE SCANNED REPORT) HEMOGLOBIN-OUTSIDE LAB OUTSIDE LAB (SEE SCANNED REPORT) CHEMISTRY COMMENT-OUTSIDE LAB Comment:SEE SCAN DR THOMSON: CMP, LDL DIRECT, HA1C, HEPATIC FUNCTION, AST, ALT, LIPID PANEL, MG, PROBNP, FT4, TSH OUTSIDE LAB (SEE SCANNED REPORT) Specimen Narrative Performed At Performing Organization Address City/State/Zipcod e Phone Number OUTSIDE LAB (SEE SCANNED REPORT) documented in this encounter Advance Directives Documents on File Type Date Recorded Patient Junior Business Analyst 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
--- OUTSIDE RECORDS SUMMARY | 2023-06-18 03:22 | External Medical Summary | Summary of Care ---
Author Name Unknown Organization [place] [address] Care Team Providers Care Ingredient Scaler Name Role Phone Marcela Pinto MD Primary Care Provider [phone] Reason for Visit * Reason Comments case management [facility] Encounter Details Date Type Department Care Team Description 06/22/2020 Electrician Apprentice Powerhouse Telephone Family Practice [facility] [address] [place], [place] [id number] Cici Gama, BIJAL [address] [place] [address] [place] [address] case management ([facility]) Allergies Active Allergy Reactions Severity Noted Date Comments Valsartan 07/10/2010 Enalapril 05/21/2006 Escitalopram Oxalate Nausea/vomiting 10/11/2009 Nauseated Iodinated Diagnostic Agents Nausea/vomiting 05/2010 IV Contrast Lisinopril 05/21/2006 Metoprolol Tartrate 11/18/2006 Made pulse low [place] Oil-Black Currant-Vit E 07/10/2010 Verapamil 03/21/2004 Bupropion [...] less than 7.0% ([facility]) USE TO TEST BLOOD SUGAR 3 TIMES A DAY FOR DIAGNOSIS CODE OF E11.9 300 Strip 1 01/05/2020 Active Blood Glucose Monitoring Suppl (CONTOUR MONITOR) w/Device KIT USE TO TEST BLOOD SUGAR 3 TIMES A DAY FOR DIAGNOSIS CODE OF E11.9 1 Kit 0 01/05/2020 Active COMBIVENT RESPIMAT 20-100 MCG/ACT InhalerIndications:A sthma with severity to be determined,COPD, moderate ([facility]) TAKE 1 PUFF BY MOUTH 4 TIMES A DAY 12 g 3 01/14/2020 Active atorvaSTATin (LIPITOR) 40 MG TabletIndications:Hy perlipidemia with target LDL less than 100 TAKE 1 TABLET BY MOUTH EVERY DAY 90 Tab 1 02/28/2020 Active INCRUSE ELLIPTA 62.5 MCG/INH AEPBIndications:COPD , group B, 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 ([facility]) INHALE 1 PUFF BY MOUTH EVERY DAY 30 Each 3 03/09/2020 Active omeprazole (PRILOSEC) 20 MG CPDRIndications:Isch emic colitis ([facility]) TAKE 1 CAPSULE BY MOUTH TWICE A [...] hours as needed for Nausea. 0 Active documented as of this encounter [...] Hypoxemia 10/08/2011 10/30/2015 Genetic Sleep Disorder Research Other*[id number] 07/25/2011 05/15/2016 Diverticulitis of colon 07/25/2011 01/06/20 [...] Telephone Encounter - Cici Gama RN - 06/22/2020 3:48 PM EDT Attempted to contact patient for initial [facility] assessment. No answer. Goes to [employer] service. It would not let me leave a message. I tried several times. [place]. documented in this encounter Plan of Treatment Upcoming Encounters Date Type Specialty Care Team Description 06/27/2020 Imaging Radiology 07/26/2020 Office Visit Gastroenterology Lilibeth Edwards CRNP [address] [place] [address] 12/21/2020 Office Visit [facility] [address] [facility] [address] [facility] Maintenance Due Date Last Done Comments Zoster Vaccines (2 of 3) 08/31/2012 07/06/2012 CKD PHOS USE SMARTSET 78726 03/22/2020 03/22/2019 DXA-EVERY 5 YRS-USE SMARTSET# 3348 TO ORDER 05/01/2020 05/01/2015, 06/19/2010, 06/19/2010, Additional history exists Influenza Vaccine (FLU shot) (#1) 2020 07/09/2019, 06/16/2018, 07/30/2017, Additional history exists DIABETES-EYE EXAM 08/10/2020 08/10/2019, , 08/04/2017, Additional history exists DIABETES-HGBA1C EVERY 6 MONTHS 09/10/2020 03/10/2020, 02/02/2020, 08/26/2019, Additional history exists DIABETES-FOOT EXAM 10/19/2020 10/19/2019, 0 01/05/2019, 01/16/2018, Additional history exists CKD GFR USE SMARTSET 51909 11/27/202005/27, 05/18/2020, 03/10/2020, Additional history exists DIABETES-URINE MICROALBUMIN EVERY 12 MONTHS 12/08/2020 12/08/2019, 10/30/2019, 07/09/2019, Additional history exists CKD HGB USE SMARTSET 38877 05/27/202105/27, 05/18/2020, 04/03/2020, Additional history exists COLONOSCOPY-EVERY [...] Documents on File Type Date Recorded Patient Endodontic Assistant 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
--- OUTSIDE RECORDS SUMMARY | 2023-06-18 03:22 | External Medical Summary | Summary of Care ---
Author Name Unknown Organization [place] [address] Care Team Providers Care Baseball Glove Stuffer Name Role Phone Marcela Pinto MD Primary Care Provider [phone] Reason for Visit * Reason Comments Hospital Follow-Up Medication Administration flu shot Hospital Follow-Up Encounter Details Date Type Department Care Team Description 06/22/2020 Office Visit General Internal Medicine [facility] [address] [place], [place] [id number] Marcela Pinto MD [address] [place], [place] [id number] Acute diverticulitis*; Need for prophylactic vaccination and inoculation against influenza; Hospital discharge follow-up; Type 2 diabetes mellitus with hemoglobin A1c goal of less than 7.5% ([facility]); Controlled substance agreement signed; Hyperlipidemia with target LDL less than 100; Asthma with severity to be determined; Nocturnal hypoxia; Sleep apnea, obstructive Allergies Active Allergy Reactions Severity Noted Date Comments Valsartan 07/10/2010 Enalapril 05/21/2006 Escitalopram Oxalate Nausea/vomiting 10/11/2009 Nauseated Iodinated Diagnostic Agents Nausea/vomiting 05/2010 IV Contrast Lisinopril 05/21/2006 Metoprolol Tartrate 11/18/2006 Made pulse low [place] Oil-Black Currant-Vit E 07/10/2010 Verapamil 03/21/2004 Bupropion [...] 300 Each 1 01/05/2020 Active Glucose Blood (Unirisx CONTOUR TEST) STRPIndications:Typ e 2 diabetes mellitus [...] 1 02/28/2020 Active INCRUSE ELLIPTA 62.5 MCG/INH AEPBIndications:LOAN REVIEW OFFICER D, group B, 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 ([facility]) INHALE 1 PUFF BY MOUTH EVERY DAY 30 Each 3 03/09/2020 Active omeprazole (PRILOSEC) 20 MG CPDRIndications:Isc hemic colitis (HCC) TAKE 1 CAPSULE BY MOUTH TWICE A DAY 180 Cap 1 03/17/2020 Active zafirlukast (ACCOLATE) 20 MG TabletIndications:A sthma with severity to be determined TAKE 1 TABLET BY MOUTH EVERY DAY 90 Tab 1 03/22/2020 Active HYDROcodone-acetami nophen 5-325 mg per tab [...] hours as needed for Nausea. 0 Active aspirin enteric coated 81 MG TBEC Take 1 Tab by mouth daily. 100 Tab 3 03/16/2017 0 Discontinu ed(Patient preference /discontin uation) ondansetron ODT (ZOFRAN) 8 MG TBDPIndications:David sea DISSOLVE 1 TABLET ON TONGUE EVERY 8 HOURS NEEDED FOR NAUSEA 60 Tab 5 03/21/2020 0 Discontinu ed(Medicat ion List Clean Up) dilTIAZem HCl ER Beads 360 MG [id number] , goal below 130/80 TAKE 1 CAPSULE BY MOUTH EVERY DAY 90 Cap 1 05/16/2020 0 Discontinu ed(Medicat ion/Dose Changed) documented as of [...] Hypoxemia 10/08/2011 10/30/2015 Genetic Sleep Disorder Research Other*[id number] 07/25/2011 05/15/2016 Diverticulitis of colon 07/25/2011 01/06/20 [...] PM EDT documented as of this encounter Last Filed Vital Signs Vital Sign Reading Time Taken Comments Blood Pressure 124/64 06/22/2020 2:46 PM EDT Pulse 74 06/22/2020 2:46 PM EDT Temperature 37 C (98.6 F) 06/22/2020 2:46 PM EDT Respiratory Rate 14 06/22/2020 2:46 PM EDT Oxygen Saturation - - Inhaled Oxygen Concentration - - Weight - - Height 165.1 cm (5' 5") 06/22/2020 2:46 PM EDT Body Mass Index - - documented in this encounter Patient Instructions * Patient Instructions* Renetta Gu LPN - 06/22/2020 2:35 PM EDT ~~PATIENT INSTRUCTIONS FOR FLU SHOT~~ Possible side effects of influenza vaccine, (flu shot), are usually mild and include: 1. Soreness or redness at injection site 2. Low grade fever 3. Body aches You may use Tylenol/Acetaminophen as needed for these symptoms. LET YOUR DOCTOR KNOW IMMEDIATELY IF YOU HAVE DIFFICULTY BREATHING OR SWALLOWING, EXPERIENCE ITCHINGOF FEET OR HANDS, HAVE SWELLING OF EYES, FACE OR INSIDE OF NOSE. documented in this encounter Progress Notes * Renetta Gu LPN - 06/22/2020 2:35 PM EDT PRE - ADMINISTRATION DOCUMENTATION Are you allergic to latex? No Are you experiencing any cold symptoms or fever? No Have you had Guillain-Weiser Syndrome (an illness that causes paralysis) within the last 6 weeks? No Have you had the flu shot in the past? YES Have you ever had a reaction to the flu shot? No Renetta Gu LPN, 06/22/2020 2:35 PM Immunization Administration Documentation Time Out Procedure Performed: Yes Patient Identified (Ask Name/Date of ): Yes Does the patient have a fever greater than 101 degrees today? No Patient allergic to latex? No VFC Stock: No Immunization(s) verified: Yes, Immunization Name: Flu, VIS Sheet(s) given: Yes Verified Side and Site: Yes Verified Shot(s) with Parent(s)/Patient: Yes * Marcela Pinto MD - 06/22/2020 2:20 PM EDT HPI: Nina Harrington is a 79 year old female with medical problems as listed below who presents with: No chief complaint on file. Pt is here for the hospital follow up. Chart reviewed from the hospital including admission note, Hand P, consult notes, labs, EKG, imaging and discharge note including discharge meds. Patient states she is feeling better since went back home. Pt was admitted to the hospital on 06/02/20 and was discharged on 06/16/20 . Admission Diagnosis : Acute sigmoid diverticulitis, lower GI bleed As per the review of the chart and discussion with the patient she was initially by us early Mayfor nausea and left lower abdominal pain. Patient had no fever, chills, blood in the stool or diarrhea at that time. Patient was given Cipro and Flagyl and was advised to start taking it if her symptoms gets worse for possible acute diverticulitis. Patient states she took both antibiotics for 2 days and then stopped it as it gave her GI side effects. Over the few days patient's symptoms got worse and she had significant nausea and worsening left lower abdominal pain. Patient was taken to emergency room for further evaluation. In ER she had labs including CMP, lipase, CBCD, UA, culture, x-ray chest, EKG, CT abdomen and pelvis for further evaluation. Patient seemed dehydrated, UTI was ruled out. WBC count was borderline high and hemoglobin between 8 to 10 g. Patient was started on IV fluid, IV pain medications, IV Cipro and Flagyl. GI consultation was called. Surgery consultation was called. It should be noted that CT abdomen and pelvis showed acute sigmoid diverticulitis, gets tumor. Patient had seen General surgery as an outpatient in last few years and as she is not a surgical candidate she was advised conservative management in the past. While in the hospital as her blood pressure was on the low side patient was advised to hold diltiazem and Lasix until she see her asw specialist Dr. Palmer. Patient so Dr. Meza yesterday. Patient states she usually does not prefer taking any beta-jonathan as it gives her fatigue and very low heart rate. Gastric eptying study was normal in the hospital. Pt states Dr. Meza advised to restart lower dose of cardizem 240 mg orally daily and restart lasix 40 mg orally daily after a week. She was advised to get EXHAUST WORKER by cardiology to get her BP checked. Pt will check with cardiology and find out if they have done EXHAUST WORKER and if not will call us To get it done. Pt has been followed up by rifle case repairer and specialists. 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 Allergic rhinitis J30.9 Nocturnal hypoxia G47.34 Sleep apnea, obstructive G47.33 ACEI/ARB contraindicated [id number] HTN, goal below 140/90 I10 Hyperlipidemia with target LDL less than 100 E78.5 Controlled substance agreement signed Z79.899 Type 2 diabetes mellitus with hemoglobin A1c goal of less than 7.5% ([facility]) E11.9 Hypercalcemia E83.52 Elevated plasma metanephrines R79.89 Irritable bowel syndrome with constipation K58.1 Ischemic colitis ([facility]) K55.9 HECTOR (generalized anxiety disorder) F41.1 COPD, group B, 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 ([facility]) J44.9 Morbid obesity with BMI of 40.0-44.9, adult ([facility]) E66.01, Z68.41 Gastro-esophageal reflux disease without esophagitis K21.9 Diabetes mellitus with stage 3 chronic kidney disease ([facility]) E11.22, N18.3 Current Outpatient Medications Medication Sig Dispense Refill Ketoconazole 2 % cream Apply topically to affected area 2 times a day for 42 days. Apply to groin area 60 g 11 dilTIAZem HCl ER Beads 360 MG CP24 TAKE 1 CAPSULE BY MOUTH EVERY DAY 90 Cap 1 furosemide (LASIX) 40 MG Tablet TAKE 2 TABLETS BY MOUTH TWICE A DAY. TAKE BEFORE A MEAL (Patient taking differently: 40 mg. One tablet in the morning and one or two tablets in the afternoon) 360 Tab 1 dicyclomine (BENTYL) 20 MG Tablet Take 1 Tab by mouth daily. 90 Tab 2 HYDROcodone-acetaminophen 5-325 mg per tab 5-325 MG per tablet Take 1 Tab by mouth every 6 hours asneeded for Pain, Mild. 120 Tab 0 Potassium Chloride Annalisa ER (KLOR-CON M20) 20 MEQ TBCR Take 1 Tab by mouth daily. 90 Tab 1 zafirlukast (ACCOLATE) 20 MG Tablet TAKE 1 TABLET BY MOUTH EVERY DAY 90 Tab 1 ondansetron ODT (ZOFRAN) 8 MG TBDP DISSOLVE 1 TABLET ON TONGUE EVERY 8 HOURS NEEDED FOR NAUSEA 60 Tab 5 omeprazole (PRILOSEC) 20 MG CPDR TAKE 1 CAPSULE BY MOUTH TWICE A DAY 180 Cap 1 INCRUSE ELLIPTA 62.5 MCG/INH AEPB INHALE 1 PUFF BY MOUTH EVERY DAY 30 Each 3 atorvaSTATin (LIPITOR) 40 MG Tablet TAKE 1 [...] 0 glimepiride (AMARYL) 4 MG Tablet Take 4 mg by mouth daily before breakfast. 90 Tab 3 Nebulizers (NEBULIZER COMPRESSOR) MISC Inhale via nebulizer. Use as directed. Please give tubing to use with it. 1 Each 1 [facility] SENNA 8.6 MG Tablet TAKE 2 TABLETS BY MOUTH EVERY EVENING FOR 10 DAYS NEEDED FOR CONSTIPATION 0 Multiple Vitamins-Minerals (ONE DAILY MULTIVITAMIN WOMEN) TABS one pill each day aspirin enteric coated 81 MG TBEC Take 1 Tab by mouth daily. 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 Social Needs Financial resource strain: Not on file Food insecurity: Worry: Never true Inability: Never true Transportation needs: Medical: Not on file Non-medical: Not on file Tobacco Use Smoking status: Never Smoker Smokeless tobacco: Never Used Substance and Sexual Activity Alcohol use: No Drug use: No Sexual activity: Not Currently Lifestyle Physical activity: Days per week: Not on file Minutes per session: Not on file Stress: Not on file Relationships Social connections: Talks on phone: Not on file Gets together: Not on file Attends yarsanism service: Not on file Active member of club or organization: Not on file Attends meetings of clubs or organizations: Not on file Relationship status: Not on file Intimate partner violence: Fear of current or ex partner: Not [...] except as per hpi. OBJECTIVE: Blood pressure 124/64, pulse 74, temperature 37 C (98.6 F), temperature source Tympanic, resp. rate 14, height 1.651 m (5' 5"). PHYSICAL EXAM: HEENT: PERRLA, EOMI, anicteric sclera, b/l tympanic membrane is pearly white, no erythema,, no lymphadenopathy, neck supple CVS: RRR, no murmurs, rubs or gallops, s1 s 2normal. RESP: clear to auscultation, no wheezing or crackles ABD: soft, NT/ND EXT: no edema, cyanosis, peripheral pulses palpable bilaterally No large joint swelling, no redness, range of motion normal. Skin normal.chronic skin changes in extrimities.ormal. Mood little nervous No focal weakness ASSESSMENT AND PLAN: Acute diverticulitis (Primary) Finish Cipro and Flagyl. Use Bentyl 20 mg 1 pill once a day. Use Phenergan 25 mg 1 pill every 6 hourly as needed for nausea.Patient was started on erythromycin 250 mg tablet 1 pill before each meal to help with her current symptoms. Continue PPI. Keep appointment with the GI on July 26 this year. Will be getting labs with cardiology in 6 to 8 weeks. Pt states she may try Zofran she has at home if it helps more than Phenargan, will call us to get more scripts. Need for prophylactic vaccination and inoculation against influenza - INFLUENZA VACC, QUAD, PF, ADJUVANTED, 65+ YRS, IM Hospital discharge follow-up - DISCH MED RECON CUR MED LIS - DISCH MED RECON CUR MED LIS Type 2 diabetes mellitus with hemoglobin A1c goal of less than 7.5% ([facility]) Continue Amaryl 4 mg tablet half tablet once a day before breakfast. Continue balanced diet, 3 meals a day snack in between portion control. Controlled substance agreement signed Hyperlipidemia with target LDL less than 100 On statin. Asthma with severity to be determined Well control on Combivent and ProAir as needed. Nocturnal hypoxia Uses oxygen 2 lit during day and 4 lit at bedtime. Sleep apnea, obstructive Uses CPAP machine. Marcela Pinto MD documented in this encounter Nursing Notes * Renetta Gu LPN - 06/22/2020 2:43 PM EDT Hospital follow up, nausea remains. documented in this encounter Plan of Treatment Upcoming Encounters Date Type Specialty Care Team Description 06/27/2020 Imaging Radiology 07/26/2020 Office Visit Gastroenterology Lilibeth Edwards CRNP [address] [place] [address] [phone] 12/21/2020 Office Visit Internal Medicine Marcela Pinto MD [address] [facility] [place] [address] [phone] Health Maintenance Due Date Last Done Comments Zoster Vaccines (2 of 3) 08/31/2012 07/06/2012 CKD PHOS USE SMARTSET 36693 03/22/2020 03/22/2019 DXA-EVERY 5 YRS-USE SMARTSET# 3348 TO ORDER 05/01/2020 05/01/2015, 06/19/2010, 06/19/2010, Additional history exists Influenza Vaccine (FLU shot) (#1) 2020 07/09/2019, 06/16/2018, 07/30/2017, Additional history exists DIABETES-EYE EXAM 08/10/2020 08/10/2019, , 08/04/2017, Additional history exists DIABETES-HGBA1C EVERY 6 MONTHS 09/10/2020 03/10/2020, 02/02/2020, 08/26/2019, Additional history exists DIABETES-FOOT EXAM 10/19/2020 10/19/2019, 0 01/05/2019, 01/16/2018, Additional history exists CKD GFR USE SMARTSET 53531 11/27/202005/27, 05/18/2020, 03/10/2020, Additional history exists DIABETES-URINE MICROALBUMIN EVERY 12 MONTHS 12/08/2020 12/08/2019, 10/30/2019, 07/09/2019, Additional history exists CKD HGB USE SMARTSET 40061 05/27/202105/27, 05/18/2020, 04/03/2020, Additional history exists COLONOSCOPY-EVERY [...] for prophylactic vaccination and inoculation against influenza Hospital discharge follow-up Other follow-up examination Type 2 diabetes mellitus with hemoglobin A1c goal of less than 7.5% ([facility]) Controlled substance agreement signed Encounter for long-term (current) use of other medications Hyperlipidemia with target LDL less than 100 Other and unspecified hyperlipidemia Asthma with severity to be determined Nocturnal hypoxia Hypoxemia Sleep apnea, obstructive Obstructive sleep apnea (adult) (pediatric) documented in this encounter Advance Directives Documents on File Type Date Recorded Patient Sales Forecast Analyst 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
--- OUTSIDE RECORDS SUMMARY | 2023-06-18 03:22 | External Medical Summary | Summary of Care ---
Author Name Unknown Organization [place] [address] Care Team Providers Care Beverage Manager Name Role Phone Marcela Pinto MD Primary Care Provider [phone] Encounter Details Date Type Department Care Team Description 06/28/2020 Equal Employment Opportunity OfficerSupervisor [employer] [facility] [address] [place] [address] Cici Gama, RN [address] [place] [address] [place] [address] Medical home patient encounter*; Nausea without vomiting; Gastro-esophageal reflux disease without esophagitis; Type 2 diabetes mellitus with hemoglobin A1c goal of less than 7.5% ([facility]); Generalized osteoarthritis; COPD, group B, 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 ([facility]); Nocturnal hypoxia Allergies Active Allergy Reactions Severity Noted Date Comments Valsartan 07/10/2010 Enalapril 05/21/2006 Escitalopram Oxalate Nausea/vomiting 10/11/2009 Nauseated Iodinated Diagnostic Agents Nausea/vomiting 05/2010 IV Contrast Lisinopril 05/21/2006 Metoprolol Tartrate 11/18/2006 Made pulse low [place] Oil-Black Currant-Vit E 07/10/2010 Verapamil 03/21/2004 [...] 300 Each 1 01/05/2020 Active Glucose Blood (7[employer] CONTOUR TEST) STRPIndications:Type 2 diabetes mellitus with [...] (PRILOSEC) 20 MG CPDRIndications:Isch emic colitis ([facility]) TAKE 1 [...] Hypoxemia 10/08/2011 10/30/2015 Genetic Sleep Disorder Research Other*[id number] 07/25/2011 05/15/2016 Diverticulitis of colon 07/25/2011 01/06/20 [...] HERMAN week #1, contact #2. Discharged from [facility] 06/16/20. Discharge dx: diverticulitis, intractable nausea, and [...] had mailed to her. Reinforced role of welfare case worker. Encouraged to call with any issues or concerns. Patient has CM direct phone number and contact information. documented in this encounter Plan of Treatment Upcoming Encounters Date Type Specialty Care Team Description 07/26/2020 Office Visit Gastroenterology Lilibeth Edwards CRNP [address] [facility] [place] [address] 12/21/2020 Office Visit Internal Medicine Marcela iPnto MD [address] [facility] [place] [address] [phone] Health Maintenance Due Date Last Done Comments Zoster Vaccines (2 of 3) 08/31/2012 07/06/2012 CKD PHOS USE SMARTSET 90239 03/22/2020 03/22/2019 DXA-EVERY 5 YRS-USE SMARTSET# 3348 TO ORDER 05/01/2020 05/01/2015, 06/19/2010, 06/19/2010, Additional history exists DIABETES-EYE EXAM 08/10/2020 08/10/2019, , 08/04/2017, Additional history exists DIABETES-HGBA1C EVERY 6 MONTHS 09/10/2020 03/10/2020, 02/02/2020, 08/26/2019, Additional history exists DIABETES-FOOT EXAM 10/19/2020 10/19/2019, 0 01/05/2019, 01/16/2018, Additional history exists CKD GFR USE SMARTSET 58474 11/27/202005/27, 05/18/2020, 03/10/2020, Additional history exists DIABETES-URINE MICROALBUMIN EVERY 12 MONTHS 12/08/2020 12/08/2019, 10/30/2019, 07/09/2019, Additional history exists CKD HGB USE SMARTSET 37861 05/27/202105/27, 05/18/2020, 04/03/2020, Additional history exists COLONOSCOPY-EVERY [...] Documents on File Type Date Recorded Patient Certified Surgical First Assistant 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
--- OUTSIDE RECORDS SUMMARY | 2023-06-18 03:22 | External Medical Summary | Summary of Care ---
Author Name Unknown Organization [place] [address] Care Team Providers Care Benzene Washer Name Role Phone Marcela Pinto MD Primary Care Provider [phone] Reason for Visit * Reason Comments Advice Encounter Details Date Type Department Care Team Description 06/21/2020 Telephone [facility]astroenterology, [facility] [address] [facility] [place] [address] Zulay Eagle, [address] [place] [address] Advice Allergies Active Allergy Reactions Severity Noted Date Comments Valsartan 07/10/2010 Enalapril 05/21/2006 Escitalopram Oxalate Nausea/vomiting 10/11/2009 Nauseated Iodinated Diagnostic Agents Nausea/vomiting 05/2010 IV Contrast Lisinopril 05/21/2006 Metoprolol Tartrate 11/18/2006 Made pulse low [place] Oil-Black Currant-Vit E 07/10/2010 Verapamil 03/21/2004 Bupropion [...] 300 Each 1 01/05/2020 Active Glucose Blood ([employer] CONTOUR TEST) STRPIndications:Type 2 diabetes mellitus with [...] sthma with severity to be determined,COPD, moderate ([facility]) TAKE 1 PUFF BY MOUTH 4 TIMES A DAY 12 g 3 01/14/2020 Active atorvaSTATin (LIPITOR) 40 MG TabletIndications:Hy perlipidemia with target LDL less than 100 TAKE 1 TABLET BY MOUTH EVERY DAY 90 Tab 1 02/28/2020 Active INCRUSE ELLIPTA 62.5 MCG/INH AEPBIndications:COPD , group B, 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 ([facility]) INHALE 1 PUFF BY MOUTH EVERY DAY 30 Each 3 03/09/2020 Active omeprazole (PRILOSEC) 20 MG CPDRIndications:Isch emic colitis ([facility]) TAKE 1 [...] PM dilTIAZem HCl ER Beads 360 MG [id number], goal below 130/80 TAKE 1 CAPSULE BY [...] Hypoxemia 10/08/2011 10/30/2015 Genetic Sleep Disorder Research Other*[id number] 07/25/2011 05/15/2016 Diverticulitis of colon 07/25/2011 01/06/20 [...] encounter Miscellaneous Notes * Telephone Encounter - Zulay Eagle DO - 06/22/2020 9:01 AM EDT We had suggested use of Erythromycin for 2 weeks, then stop. Can we have her see one of the jewelry mold maker in 4 to 6 weeks. * Telephone Encounter - Tasha Duong LPN - 06/21/2020 3:06 PM EDT Pt calling in and stating that she was in the hospital and discharged on Friday.( for nausea and GIbleed) They had given her a script of " erythromycin " to take before meals. Pt just got this filled today. Pt saw senior it project manager today at [address] and per pt- her senior it project manager wants to make sure she is still to be taking this medication. Pt was prescribed a 30 day supply and pt has a follow up with us on 07/12/2020. ( ;in the [facility] discharge it does have her discharged with [...] Internal Medicine Marcela Pinto MD [address] [place] [address] [phone] 06/27/2020 Imaging Radiology 07/12/2020 Office Visit Gastroenterology Zulay Eagle DO [address] [facility] [place] [address] [phone] 08/08/2020 Office Visit Internal Medicine Marcela Pinto MD [address] [place] [address] [phone] 11/23/2020 Office Visit Internal Medicine Marcela Pinto MD [address] [place], [place] [address] [phone] Health Maintenance Due Date Last Done Comments Zoster Vaccines (2 of 3) 08/31/2012 07/06/2012 CKD PHOS USE SMARTSET 80144 03/22/2020 03/22/2019 DXA-EVERY 5 YRS-USE SMARTSET# 3348 TO ORDER 05/01/2020 05/01/2015, 06/19/2010, 06/19/2010, Additional history exists Influenza Vaccine (FLU shot) (#1) 2020 07/09/2019, 06/16/2018, 07/30/2017, Additional history exists DIABETES-EYE EXAM 08/10/2020 08/10/2019, , 08/04/2017, Additional history exists DIABETES-HGBA1C EVERY 6 MONTHS 09/10/2020 03/10/2020, 02/02/2020, 08/26/2019, Additional history exists DIABETES-FOOT EXAM 10/19/2020 10/19/2019, 0 01/05/2019, 01/16/2018, Additional history exists CKD GFR USE SMARTSET 29509 11/27/202005/27, 05/18/2020, 03/10/2020, Additional history exists DIABETES-URINE MICROALBUMIN EVERY 12 MONTHS 12/08/2020 12/08/2019, 10/30/2019, 07/09/2019, Additional history exists CKD HGB USE SMARTSET 12840 05/27/202105/27, 05/18/2020, 04/03/2020, Additional history exists COLONOSCOPY-EVERY [...] Documents on File Type Date Recorded 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
--- OUTSIDE RECORDS SUMMARY | 2023-06-18 03:23 | External Medical Summary | Summary of Care ---
Author Name Unknown Organization [place] [address] Care Team Providers Care Edi Programmer Name Role Phone Marcela Pinto MD Primary Care Provider [phone] Encounter Details Date Type Department Care Team Description 06/16/2020 Scan Encounter Unspecified Department <No scans attached> Allergies Active Allergy Reactions Severity Noted Date Comments Valsartan 07/10/2010 Enalapril 05/21/2006 Escitalopram Oxalate Nausea/vomiting 10/11/2009 Nauseated Iodinated Diagnostic Agents Nausea/vomiting 05/2010 IV Contrast Lisinopril 05/21/2006 Metoprolol Tartrate 11/18/2006 Made pulse low [place] Oil-Black Currant-Vit E 07/10/2010 Verapamil 03/21/2004 Bupropion Hcl 10/30/2009 Makes pt sick in the stomach documented as of this encounter (statuses as of 06/20/2020) Medications Medication Sig Dispensed Refills Start Date [...] 300 Each 1 01/05/2020 Active Glucose Blood ([employer] CONTOUR TEST) STRPIndications:Type 2 diabetes mellitus with hemoglobin A1c goal of less than 7.0% ([facility]) USE TO TEST BLOOD SUGAR 3 TIMES A DAY FOR DIAGNOSIS CODE OF E11.9 300 Strip 1 01/05/2020 Active Blood Glucose Monitoring Suppl (CONTOUR MONITOR) w/Device KIT USE TO TEST BLOOD SUGAR 3 TIMES A DAY FOR DIAGNOSIS CODE OF E11.9 1 Kit 0 01/05/2020 Active COMBIVENT RESPIMAT 20-100 MCG/ACT InhalerIndications:A sthma with severity to be determined,COPD, moderate ([facility]) TAKE 1 PUFF BY MOUTH 4 TIMES A DAY 12 g 3 01/14/2020 Active atorvaSTATin (LIPITOR) 40 MG TabletIndications:Hy perlipidemia with target LDL less than 100 TAKE 1 TABLET BY MOUTH EVERY DAY 90 Tab 1 02/28/2020 Active INCRUSE ELLIPTA 62.5 MCG/INH AEPBIndications:COPD , group B, 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 ([facility]) INHALE 1 PUFF BY MOUTH EVERY DAY 30 Each 3 03/09/2020 Active omeprazole (PRILOSEC) 20 MG CPDRIndications:Isch emic colitis ([facility]) TAKE 1 CAPSULE BY [...] PM dilTIAZem HCl ER Beads 360 MG [id number]:HTN, goal below 130/80 TAKE 1 CAPSULE BY MOUTH EVERY DAY 90 Cap 1 05/16/2020 Active Ketoconazole 2 % cream Apply topically to affected area 2 times a day for 42 days. Apply to groin area 60 g 11 05/27/2020 0 Active documented as of this encounter (statuses as of 06/20/2020) Active Problems Problem Noted Date Diabetes mellitus [...] as of this encounter (statuses as of 06/20/2020) Resolved Problems Problem Noted Date Resolved Date [...] Hypoxemia 10/08/2011 10/30/2015 Genetic Sleep Disorder Research Other*[id number] 07/25/2011 05/15/2016 Diverticulitis of colon 07/25/2011 01/06/20 [...] as of this encounter (statuses as of 06/20/2020) Immunizations Name Administration Dates Next Due Hepatitis [...] or suspected to have Coronavirus / COVID-19? No / Unsure 05/30/2020 2:25 PM EDT documented as of this encounter Plan of Treatment Upcoming Encounters Date Type Specialty Care Team Description 06/22/2020 Office Visit Internal Medicine Marcela Pinto MD [address] [place] [address] [phone] 06/27/2020 Imaging Radiology 08/08/2020 Office Visit Internal Medicine Marcela Pinto MD [address] [place] [address] [phone] 11/23/2020 Office Visit Internal Medicine Marcela Pinto MD [address] [place], [place] [address] [phone] Health Maintenance Due Date Last Done Comments Zoster Vaccines (2 of 3) 08/31/2012 07/06/2012 CKD PHOS USE SMARTSET 37849 03/22/2020 03/22/2019 DXA-EVERY 5 YRS-USE SMARTSET# 3348 TO ORDER 05/01/2020 05/01/2015, 06/19/2010, 06/19/2010, Additional history exists Influenza Vaccine (FLU shot) (#1) 2020 07/09/2019, 06/16/2018, 07/30/2017, Additional history exists DIABETES-EYE EXAM 08/10/2020 08/10/2019, , 08/04/2017, Additional history exists DIABETES-HGBA1C EVERY 6 MONTHS 09/10/2020 03/10/2020, 02/02/2020, 08/26/2019, Additional history exists DIABETES-FOOT EXAM 10/19/2020 10/19/2019, 0 01/05/2019, 01/16/2018, Additional history exists CKD GFR USE SMARTSET 22698 11/27/202005/27, 05/18/2020, 03/10/2020, Additional history exists DIABETES-URINE MICROALBUMIN EVERY 12 MONTHS 12/08/2020 12/08/2019, 10/30/2019, 07/09/2019, Additional history exists CKD HGB USE SMARTSET 92706 05/27/202105/27, 05/18/2020, 04/03/2020, Additional history exists COLONOSCOPY-EVERY [...] Documents on File Type Date Recorded 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
--- OUTSIDE RECORDS SUMMARY | 2023-06-18 03:23 | External Medical Summary | Summary of Care ---
Author Name Unknown Organization [place] [address] Care Team Providers Care Technologist Development Name Role Phone Marcela Pinto MD Primary Care Provider [phone] Reason for Visit * Reason Comments Test Results Encounter Details Date Type Department Care Team Description 06/01/2020 Telephone General Internal Medicine [facility] [address] [place] [address] Marcela Pinto MD [address] [place], [place] [id number] Test Results Allergies Active Allergy Reactions Severity Noted Date Comments Valsartan 07/10/2010 Enalapril 05/21/2006 Escitalopram Oxalate Nausea/vomiting 10/11/2009 Nauseated Iodinated Diagnostic Agents Nausea/vomiting 05/2010 IV Contrast Lisinopril 05/21/2006 Metoprolol Tartrate 11/18/2006 Made pulse low [place] Oil-Black Currant-Vit E 07/10/2010 Verapamil 03/21/2004 Bupropion Hcl 10/30/2009 Makes pt sick in the stomach documented as of this encounter (statuses as of 06/09/2020) Medications Medication Sig Dispensed Refills Start Date [...] 300 Each 1 01/05/2020 Active Glucose Blood ([employer] CONTOUR TEST) STRPIndications:Type 2 diabetes mellitus with hemoglobin A1c goal of less than 7.0% ([facility]) USE TO TEST BLOOD SUGAR 3 TIMES A DAY FOR DIAGNOSIS CODE OF E11.9 300 Strip 1 01/05/2020 Active Blood Glucose Monitoring Suppl (CONTOUR MONITOR) w/Device KIT USE TO TEST BLOOD SUGAR 3 TIMES A DAY FOR DIAGNOSIS CODE OF E11.9 1 Kit 0 01/05/2020 Active COMBIVENT RESPIMAT 20-100 MCG/ACT InhalerIndications:A sthma with severity to be determined,COPD, moderate ([facility]) TAKE 1 PUFF BY MOUTH 4 TIMES A DAY 12 g 3 01/14/2020 Active atorvaSTATin (LIPITOR) 40 MG TabletIndications:Hy perlipidemia with target LDL less than 100 TAKE 1 TABLET BY MOUTH EVERY DAY 90 Tab 1 02/28/2020 Active INCRUSE ELLIPTA 62.5 MCG/INH AEPBIndications:COPD , group B, 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 ([facility]) INHALE 1 PUFF BY MOUTH EVERY DAY 30 Each 3 03/09/2020 Active omeprazole (PRILOSEC) 20 MG CPDRIndications:Isch emic colitis ([facility]) TAKE 1 CAPSULE BY MOUTH TWICE A [...] PM dilTIAZem HCl ER Beads 360 MG [id number]:HTN, goal below 130/80 TAKE 1 CAPSULE BY MOUTH EVERY DAY 90 Cap 1 05/16/2020 Active Ketoconazole 2 % cream Apply topically to affected area 2 times a day for 42 days. Apply to groin area 60 g 11 05/27/2020 0 Active documented as of this encounter (statuses as of 06/09/2020) Active Problems Problem Noted Date Diabetes mellitus [...] as of this encounter (statuses as of 06/09/2020) Resolved Problems Problem Noted Date Resolved Date [...] Hypoxemia 10/08/2011 10/30/2015 Genetic Sleep Disorder Research Other*[id number] 07/25/2011 05/15/2016 Diverticulitis of colon 07/25/2011 01/06/20 [...] as of this encounter (statuses as of 06/09/2020) Immunizations Name Administration Dates Next Due Hepatitis [...] encounter Miscellaneous Notes * Telephone Encounter - Cali Arriola LPN - 06/01/2020 4:14 PM EDT I called and spoke with patient and advised her of your recommendations to go to the ED. She declined states she wants to wait until tomorrow to see how she feels. * Telephone Encounter - Jessica Andrade DO - 06/01/2020 4:10 PM EDT Please call: Recommend ER evaluation now. CT not read yet. Jessica Andrade DO * Telephone Encounter - Dodie Carson LPN - 06/01/2020 3:09 PM EDT Pt calling for her CT results Advice results are not back yet She states that she is still really sick She is having having nausea x 1 week that is not getting any better Taking Tums, Pepto Bismol and Zofran but none are really helping She is able to keep toast and water down She does feel that she is staying hydrating Voiding a couple times a day She has not had a normal bm for at least a week She has only gone small amounts and it looks like light brown mucus Pharm selected. Please advise. documented in this encounter Plan of Treatment Upcoming Encounters Date Type Specialty Care Team Description 06/13/2020 Office Visit Internal Medicine Marcela Pinto MD [address] [place] [address] [phone] 06/27/2020 Imaging Radiology 08/08/2020 Office Visit Internal Medicine Marcela Pinto MD [address] [place] [address] [phone] 11/23/2020 Office Visit Internal Medicine Marcela Pinto MD [address] [place] [address] [address] [phone] Health Maintenance Due Date Last Done Comments Zoster Vaccines (2 of 3) 08/31/2012 07/06/2012 CKD PHOS USE SMARTSET 26756 03/22/2020 03/22/2019 DXA-EVERY 5 YRS-USE SMARTSET# 3348 TO ORDER 05/01/2020 05/01/2015, 06/19/2010, 06/19/2010, Additional history exists Influenza Vaccine (FLU shot) (#1) 2020 07/09/2019, 06/16/2018, 07/30/2017, Additional history exists DIABETES-EYE EXAM 08/10/2020 08/10/2019, , 08/04/2017, Additional history exists DIABETES-HGBA1C EVERY 6 MONTHS 09/10/2020 03/10/2020, 02/02/2020, 08/26/2019, Additional history exists DIABETES-FOOT EXAM 10/19/2020 10/19/2019, 0 01/05/2019, 01/16/2018, Additional history exists CKD GFR USE SMARTSET 61099 11/27/202005/27, 05/18/2020, 03/10/2020, Additional history exists DIABETES-URINE MICROALBUMIN EVERY 12 MONTHS 12/08/2020 12/08/2019, 10/30/2019, 07/09/2019, Additional history exists CKD HGB USE SMARTSET 17534 05/27/202105/27, 05/18/2020, 04/03/2020, Additional history exists COLONOSCOPY-EVERY [...] on File Type Date Recorded Patient Certified Ophthalmic Assistant 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
--- OUTSIDE RECORDS SUMMARY | 2023-06-18 03:23 | External Medical Summary | Summary of Care ---
Author Name Unknown Organization [place] [address] Care Team Providers Care Machine Sewer Name Role Phone Marcela Pinto MD Primary Care Provider [phone] Reason for Visit * Reason Comments Appointment Encounter Details Date Type Department Care Team Description 06/09/2020 Telephone Gastroenterology, [facility] [address] [facility] [place] [address] [facility] Edwards CR[facility] [address] [facility] [address] Appointment Allergies Active Allergy Reactions Severity Noted Date Comments Valsartan 07/10/2010 Enalapril 05/21/2006 Escitalopram Oxalate Nausea/vomiting 10/11/2009 Nauseated Iodinated Diagnostic Agents Nausea/vomiting 05/2010 IV Contrast Lisinopril 05/21/2006 Metoprolol Tartrate 11/18/2006 Made pulse low [place] Oil-Black Currant-Vit E 07/10/2010 Verapamil 03/21/2004 Bupropion Hcl 10/30/2009 Makes pt sick in the stomach documented as of this encounter (statuses as of 06/13/2020) Medications Medication Sig Dispensed Refills Start Date [...] 300 Each 1 01/05/2020 Active Glucose Blood ([employer] CONTOUR TEST) STRPIndications:Type 2 diabetes mellitus with [...] CPDRIndications:Isch emic colitis ([facility] [...] PM dilTIAZem HCl ER Beads 360 MG [id number]:HTN, goal below 130/80 TAKE 1 CAPSULE BY MOUTH EVERY DAY 90 Cap 1 05/16/2020 Active Ketoconazole 2 % cream Apply topically to affected area 2 times a day for 42 days. Apply to groin area 60 g 11 05/27/2020 0 Active ciprofloxacin (CIPRO) 500 MG TabletIndications:Di verticulitis of colon Take 1 Tab by mouth every 12 hours for 7 days. 14 Tab 0 06/03/2020 0 metroNIDAZOLE (FLAGYL) 500 MG TabletIndications:Di verticulitis of colon Take 1 Tab by mouth 2 times a day for 7 days. 14 Tab 0 06/03/2020 0 documented as of this encounter (statuses as of 06/13/2020) Active Problems Problem Noted Date Diabetes mellitus [...] as of this encounter (statuses as of 06/13/2020) Resolved Problems Problem Noted Date Resolved Date [...] Hypoxemia 10/08/2011 10/30/2015 Genetic Sleep Disorder Research Other*[id number] 07/25/2011 05/15/2016 Diverticulitis of colon 07/25/2011 01/06/20 [...] as of this encounter (statuses as of 06/13/2020) Immunizations Name Administration Dates Next Due Hepatitis [...] encounter Miscellaneous Notes * Telephone Encounter - Chelsea Quintana OSA - 06/13/2020 11:57 AM EDT Left message via home to return call to get scheduled. * Telephone Encounter - Lilibeth Edwards CRNP - 06/09/2020 11:19 AM EDT Pt seen at [facility] for nausea. 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 Pls call her next week to offer GI clinic appt w Dr. Eagle to discuss indication for repeat EUS to re-eval stromal tumor. NIECY Kunz documented in this encounter Plan of Treatment Upcoming Encounters Date Type Specialty Care Team Description 06/27/2020 Imaging Radiology 08/08/2020 Office Visit Internal Medicine Marcela Pinto MD [address] [place] [address] [phone] 11/23/2020 Office Visit Internal Medicine Marcela Pinto MD [address] [place] [address] [phone] Health Maintenance Due Date Last Done Comments Zoster Vaccines (2 of 3) 08/31/2012 07/06/2012 CKD PHOS USE SMARTSET 52657 03/22/2020 03/22/2019 DXA-EVERY 5 YRS-USE SMARTSET# 3348 TO ORDER 05/01/2020 05/01/2015, 06/19/2010, 06/19/2010, Additional history exists Influenza Vaccine (FLU shot) (#1) 2020 07/09/2019, 06/16/2018, 07/30/2017, Additional history exists DIABETES-EYE EXAM 08/10/2020 08/10/2019, , 08/04/2017, Additional history exists DIABETES-HGBA1C EVERY 6 MONTHS 09/10/2020 03/10/2020, 02/02/2020, 08/26/2019, Additional history exists DIABETES-FOOT EXAM 10/19/2020 10/19/2019, 0 01/05/2019, 01/16/2018, Additional history exists CKD GFR USE SMARTSET 99158 11/27/202005/27, 05/18/2020, 03/10/2020, Additional history exists DIABETES-URINE MICROALBUMIN EVERY 12 MONTHS 12/08/2020 12/08/2019, 10/30/2019, 07/09/2019, Additional history exists CKD HGB USE SMARTSET 62063 05/27/202105/27, 05/18/2020, 04/03/2020, Additional history exists COLONOSCOPY-EVERY [...] Documents on File Type Date Recorded Patient Research Affiliate 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
--- OUTSIDE RECORDS SUMMARY | 2023-06-18 03:23 | External Medical Summary | Summary of Care ---
Author Name Unknown Organization [place] [address] Care Team Providers Care Carburetor Specialist Name Role Phone Marcela Pinto MD Primary Care Provider [phone] Reason for Visit * Reason Comments Appointment Encounter Details Date Type Department Care Team Description 06/09/2020 Telephone Gastroenterology, [facility] [address] [facility] [place] [address] [facility] CRNP [address] [facility] [address] Appointment Allergies Active Allergy Reactions Severity Noted Date Comments Valsartan 07/10/2010 Enalapril 05/21/2006 Escitalopram Oxalate Nausea/vomiting 10/11/2009 Nauseated Iodinated Diagnostic Agents Nausea/vomiting 05/2010 IV Contrast Lisinopril 05/21/2006 Metoprolol Tartrate 11/18/2006 Made pulse low [place] [...] of less than 7.0% ([facility]) Use as directed. USE TO TEST BLOOD SUGAR 3 TIMES A DAY FOR DIAGNOSIS CODE OF E11.9 300 Each 1 01/05/2020 Active Glucose Blood ([employer] CONTOUR TEST) STRPIndications:Type 2 diabetes mellitus with [...] sthma with severity to be determined,COPD, moderate ([facility]) TAKE 1 PUFF BY MOUTH 4 TIMES A DAY 12 g 3 01/14/2020 Active atorvaSTATin (LIPITOR) 40 MG TabletIndications:Hy perlipidemia with target LDL less than 100 TAKE 1 TABLET BY MOUTH EVERY DAY 90 Tab 1 02/28/2020 Active INCRUSE ELLIPTA 62.5 MCG/INH AEPBIndications:COPD , group B, 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 ([facility]) INHALE 1 PUFF BY MOUTH EVERY DAY 30 Each 3 03/09/2020 Active omeprazole (PRILOSEC) 20 MG CPDRIndications:Isch emic colitis ([facility]) TAKE 1 CAPSULE BY MOUTH [...] PM dilTIAZem HCl ER Beads 360 MG [id number]:HTN, goal below 130/80 TAKE 1 CAPSULE BY [...] 7 days. 14 Tab 0 06/03/2020 0 Active metroNIDAZOLE (FLAGYL) 500 MG TabletIndications:Di verticulitis of colon Take 1 Tab by mouth 2 times a day for 7 days. 14 Tab 0 06/03/2020 0 Active documented as of this encounter [...] Hypoxemia 10/08/2011 10/30/2015 Genetic Sleep Disorder Research Other*[id number] 07/25/2011 05/15/2016 Diverticulitis of colon 07/25/2011 01/06/20 [...] 06/09/2020 11:19 AM EDT Pt seen at [facility] for nausea. 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 Pls call her next week to offer GI clinic appt w Dr. Eagle to discuss indication for repeat EUS to re-eval stromal tumor. NIECY Kunz documented in this encounter Plan of Treatment Upcoming Encounters Date Type Specialty Care Team Description 06/13/2020 Office Visit Internal Medicine Marcela Pinto MD [address] [place], [place] [address] [phone] 06/27/2020 Imaging Radiology 08/08/2020 Office Visit Internal Medicine Marcela Pinto MD [address] [place] [address] [phone] 11/23/2020 Office Visit Internal Medicine Marcela Pinto MD [address] [place] [address] [phone] Health Maintenance Due Date Last Done Comments Zoster Vaccines (2 of 3) 08/31/2012 07/06/2012 CKD PHOS USE SMARTSET 75716 03/22/2020 03/22/2019 DXA-EVERY 5 YRS-USE SMARTSET# 3348 TO ORDER 05/01/2020 05/01/2015, 06/19/2010, 06/19/2010, Additional history exists Influenza Vaccine (FLU shot) (#1) 2020 07/09/2019, 06/16/2018, 07/30/2017, Additional history exists DIABETES-EYE EXAM 08/10/2020 08/10/2019, , 08/04/2017, Additional history exists DIABETES-HGBA1C EVERY 6 MONTHS 09/10/2020 03/10/2020, 02/02/2020, 08/26/2019, Additional history exists DIABETES-FOOT EXAM 10/19/2020 10/19/2019, 0 01/05/2019, 01/16/2018, Additional history exists CKD GFR USE SMARTSET 53497 11/27/202005/27, 05/18/2020, 03/10/2020, Additional history exists DIABETES-URINE MICROALBUMIN EVERY 12 MONTHS 12/08/2020 12/08/2019, 10/30/2019, 07/09/2019, Additional history exists CKD HGB USE SMARTSET 44593 05/27/202105/27, 05/18/2020, 04/03/2020, Additional history exists COLONOSCOPY-EVERY [...] Documents on File Type Date Recorded Patient Account Services Manager 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
--- OUTSIDE RECORDS SUMMARY | 2023-06-18 03:23 | External Medical Summary | Summary of Care ---
Author Name Unknown Organization [place] [address] Care Team Providers Care Firer Retort Name Role Phone Marcela Pinto MD Primary Care Provider [phone] Encounter Details Date Type Department Care Team Description 06/13/2020 Scan Encounter Unspecified Department <No scans attached> Allergies Active Allergy Reactions Severity Noted Date Comments Valsartan 07/10/2010 Enalapril 05/21/2006 Escitalopram Oxalate Nausea/vomiting 10/11/2009 Nauseated Iodinated Diagnostic Agents Nausea/vomiting 05/2010 IV Contrast Lisinopril 05/21/2006 Metoprolol Tartrate 11/18/2006 Made pulse low [place] Oil-Black Currant-Vit E 07/10/2010 Verapamil 03/21/2004 Bupropion [...] 300 Each 1 01/05/2020 Active Glucose Blood ([employer] CONTOUR TEST) STRPIndications:Type 2 diabetes mellitus with hemoglobin A1c goal of less than 7.0% ([facility]) USE TO TEST BLOOD SUGAR 3 TIMES A DAY FOR DIAGNOSIS CODE OF E11.9 300 Strip 1 01/05/2020 Active Blood Glucose Monitoring Suppl (CONTOUR MONITOR) w/Device KIT USE TO TEST BLOOD SUGAR 3 TIMES A DAY FOR DIAGNOSIS CODE OF E11.9 1 Kit 0 01/05/2020 Active COMBIVENT RESPIMAT 20-100 MCG/ACT InhalerIndications:A sthma with severity to be determined,COPD, moderate ([facility]) TAKE 1 PUFF BY MOUTH 4 TIMES A DAY 12 g 3 01/14/2020 Active atorvaSTATin (LIPITOR) 40 MG TabletIndications:Hy perlipidemia with target LDL less than 100 TAKE 1 TABLET BY MOUTH EVERY DAY 90 Tab 1 02/28/2020 Active INCRUSE ELLIPTA 62.5 MCG/INH AEPBIndications:COPD , group B, 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 ([facility]) INHALE 1 PUFF BY MOUTH EVERY DAY 30 Each 3 03/09/2020 Active omeprazole (PRILOSEC) 20 MG CPDRIndications:Isch emic colitis ([facility]) TAKE 1 CAPSULE BY MOUTH TWICE [...] PM dilTIAZem HCl ER Beads 360 MG [id number]:HTN, goal below 130/80 TAKE 1 CAPSULE BY [...] Hypoxemia 10/08/2011 10/30/2015 Genetic Sleep Disorder Research Other*[id number] 07/25/2011 05/15/2016 Diverticulitis of colon 07/25/2011 01/06/20 [...] Medicine Marcela Pinto MD [address] [place] [address] [phone] 11/23/2020 Office Visit Internal Medicine Marcela Pinto MD [address] [place], [place] [address] [phone] Health Maintenance Due Date Last Done Comments Zoster Vaccines (2 of 3) 08/31/2012 07/06/2012 CKD PHOS USE SMARTSET 67602 03/22/2020 03/22/2019 DXA-EVERY 5 YRS-USE SMARTSET# 3348 TO ORDER 05/01/2020 05/01/2015, 06/19/2010, 06/19/2010, Additional history exists Influenza Vaccine (FLU shot) (#1) 2020 07/09/2019, 06/16/2018, 07/30/2017, Additional history exists DIABETES-EYE EXAM 08/10/2020 08/10/2019, , 08/04/2017, Additional history exists DIABETES-HGBA1C EVERY 6 MONTHS 09/10/2020 03/10/2020, 02/02/2020, 08/26/2019, Additional history exists DIABETES-FOOT EXAM 10/19/2020 10/19/2019, 0 01/05/2019, 01/16/2018, Additional history exists CKD GFR USE SMARTSET 54353 11/27/202005/27, 05/18/2020, 03/10/2020, Additional history exists DIABETES-URINE MICROALBUMIN EVERY 12 MONTHS 12/08/2020 12/08/2019, 10/30/2019, 07/09/2019, Additional history exists CKD HGB USE SMARTSET 88461 05/27/202105/27, 05/18/2020, 04/03/2020, Additional history exists COLONOSCOPY-EVERY [...] Documents on File Type Date Recorded Patient Faculty Head 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
--- OUTSIDE RECORDS SUMMARY | 2023-06-18 03:23 | External Medical Summary | Summary of Care ---
Author Name Unknown Organization [place] [address] Care Team Providers Care Youtuber Name Role Phone Marcela Pinto MD Primary Care Provider [phone] Encounter Details Date Type Department Care Team Description 06/08/2020 Result Scan Gastroenterology, [facility] [address] [place] [address] Lilibeth Edwards CRNP [address] [place] [address] <No scans attached> Allergies Active Allergy Reactions Severity Noted Date Comments Valsartan 07/10/2010 Enalapril 05/21/2006 Escitalopram Oxalate Nausea/vomiting 10/11/2009 Nauseated Iodinated Diagnostic Agents Nausea/vomiting 05/2010 IV Contrast Lisinopril 05/21/2006 Metoprolol Tartrate 11/18/2006 Made pulse low [place] Oil-Black Currant-Vit E 07/10/2010 Verapamil 03/21/2004 Bupropion [...] 300 Each 1 01/05/2020 Active Glucose Blood (Wireless Toyz CONTOUR TEST) STRPIndications:Type 2 diabetes mellitus with hemoglobin A1c goal of less than 7.0% ([facility]) USE TO TEST BLOOD SUGAR 3 TIMES A DAY FOR DIAGNOSIS CODE OF E11.9 300 Strip 1 01/05/2020 Active Blood Glucose Monitoring Suppl (CONTOUR MONITOR) w/Device KIT USE TO TEST BLOOD SUGAR 3 TIMES A DAY FOR DIAGNOSIS CODE OF E11.9 1 Kit 0 01/05/2020 Active COMBIVENT RESPIMAT 20-100 MCG/ACT InhalerIndications:A sthma with severity to be determined,COPD, moderate ([facility]) TAKE 1 PUFF BY MOUTH 4 TIMES A DAY 12 g 3 01/14/2020 Active atorvaSTATin (LIPITOR) 40 MG TabletIndications:Hy perlipidemia with target LDL less than 100 TAKE 1 TABLET BY MOUTH EVERY DAY 90 Tab 1 02/28/2020 Active INCRUSE ELLIPTA 62.5 MCG/INH AEPBIndications:COPD , group B, 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 ([facility]) INHALE 1 PUFF BY MOUTH EVERY DAY 30 Each 3 03/09/2020 Active omeprazole (PRILOSEC) 20 MG CPDRIndications:Isch emic colitis ([facility]) TAKE 1 CAPSULE BY MOUTH [...] PM dilTIAZem HCl ER Beads 360 MG [id number]:HTN, goal below 130/80 TAKE 1 CAPSULE BY [...] Hypoxemia 10/08/2011 10/30/2015 Genetic Sleep Disorder Research Other*[id number] 07/25/2011 05/15/2016 Diverticulitis of colon 07/25/2011 01/06/20 [...] Medicine Marcela Pinto MD [address] [place], [place] [id number] 06/27/2020 Imaging Radiology 08/08/2020 Office Visit Internal Medicine Marcela Pinto MD [address] [place], [place] [address] 11/23/2020 Office Visit Internal Medicine Marcela Pinto MD [address] [place] [address] [phone] Health Maintenance Due Date Last Done Comments Zoster Vaccines (2 of 3) 08/31/2012 07/06/2012 CKD PHOS USE SMARTSET 04902 03/22/2020 03/22/2019 DXA-EVERY 5 YRS-USE SMARTSET# 3348 TO ORDER 05/01/2020 05/01/2015, 06/19/2010, 06/19/2010, Additional history exists Influenza Vaccine (FLU shot) (#1) 2020 07/09/2019, 06/16/2018, 07/30/2017, Additional history exists DIABETES-EYE EXAM 08/10/2020 08/10/2019, , 08/04/2017, Additional history exists DIABETES-HGBA1C EVERY 6 MONTHS 09/10/2020 03/10/2020, 02/02/2020, 08/26/2019, Additional history exists DIABETES-FOOT EXAM 10/19/2020 10/19/2019, 0 01/05/2019, 01/16/2018, Additional history exists CKD GFR USE SMARTSET 21375 11/27/202005/27, 05/18/2020, 03/10/2020, Additional history exists DIABETES-URINE MICROALBUMIN EVERY 12 MONTHS 12/08/2020 12/08/2019, 10/30/2019, 07/09/2019, Additional history exists CKD HGB USE SMARTSET 70370 05/27/202105/27, 05/18/2020, 04/03/2020, Additional history exists COLONOSCOPY-EVERY [...] Date/Time Associated Diagnosis Comments RADIOLOGY SCANNED RESULT 06/08/2020 documented in this encounter Results * RADIOLOGY SCANNED RESULT (06/08/2020) Specimen Narrative Performed At documented in this encounter Advance Directives Documents on File Type Date Recorded 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
--- OUTSIDE RECORDS SUMMARY | 2023-06-18 03:23 | External Medical Summary | Summary of Care ---
Author Name Unknown Organization [place] [address] Care Team Providers Care Web Database Developer Name Role Phone Marcela Pinto MD Primary Care Provider [phone] Encounter Details Date Type Department Care Team Description 06/06/2020 Scan Encounter Unspecified Department <No scans attached> Allergies Active Allergy Reactions Severity Noted Date Comments Valsartan 07/10/2010 Enalapril 05/21/2006 Escitalopram Oxalate Nausea/vomiting 10/11/2009 Nauseated Iodinated Diagnostic Agents Nausea/vomiting 05/2010 IV Contrast Lisinopril 05/21/2006 Metoprolol Tartrate 11/18/2006 Made pulse low [place] Oil-Black Currant-Vit E 07/10/2010 Verapamil 03/21/2004 Bupropion Hcl 10/30/2009 Makes pt sick in the stomach documented as of this encounter (statuses as of 06/06/2020) Medications Medication Sig Dispensed Refills Start Date [...] 300 Each 1 01/05/2020 Active Glucose Blood (ESBATech CONTOUR TEST) STRPIndications:Type 2 diabetes mellitus with [...] PM dilTIAZem HCl ER Beads 360 MG [id number]:HTN, goal below 130/80 TAKE 1 CAPSULE BY [...] as of this encounter (statuses as of 06/06/2020) Active Problems Problem Noted Date Diabetes mellitus [...] as of this encounter (statuses as of 06/06/2020) Resolved Problems Problem Noted Date Resolved Date [...] Hypoxemia 10/08/2011 10/30/2015 Genetic Sleep Disorder Research Other*[id number] 07/25/2011 05/15/2016 Diverticulitis of colon 07/25/2011 01/06/20 [...] as of this encounter (statuses as of 06/06/2020) Immunizations Name Administration Dates Next Due Hepatitis [...] Visit Internal Medicine Marcela Pinto MD [address] [facility] [place], [place] [id number] 06/27/2020 Imaging Radiology 08/08/2020 Office Visit Internal Medicine Marcela Pinto MD [address] [facility] [place], [place] [id number] 11/23/2020 Office Visit Internal Medicine Marcela Pinto MD [address] [facility] [place] [address] [phone] Health Maintenance Due Date Last Done Comments Zoster Vaccines (2 of 3) 08/31/2012 07/06/2012 CKD PHOS USE SMARTSET 94315 03/22/2020 03/22/2019 DXA-EVERY 5 YRS-USE SMARTSET# 3348 TO ORDER 05/01/2020 05/01/2015, 06/19/2010, 06/19/2010, Additional history exists Influenza Vaccine (FLU shot) (#1) 2020 07/09/2019, 06/16/2018, 07/30/2017, Additional history exists DIABETES-EYE EXAM 08/10/2020 08/10/2019, , 08/04/2017, Additional history exists DIABETES-HGBA1C EVERY 6 MONTHS 09/10/2020 03/10/2020, 02/02/2020, 08/26/2019, Additional history exists DIABETES-FOOT EXAM 10/19/2020 10/19/2019, 0 01/05/2019, 01/16/2018, Additional history exists CKD GFR USE SMARTSET 97921 11/27/202005/27, 05/18/2020, 03/10/2020, Additional history exists DIABETES-URINE MICROALBUMIN EVERY 12 MONTHS 12/08/2020 12/08/2019, 10/30/2019, 07/09/2019, Additional history exists CKD HGB USE SMARTSET 12493 05/27/202105/27, 05/18/2020, 04/03/2020, Additional history exists COLONOSCOPY-EVERY [...] on File Type Date Recorded 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
--- OUTSIDE RECORDS SUMMARY | 2023-06-18 03:23 | External Medical Summary | Summary of Care ---
Author Name Unknown Organization [place] [address] Care Team Providers Care Ready Mix Truck Driver Name Role Phone Marcela Pinto MD Primary Care Provider [phone] Encounter Details Date Type Department Care Team Description 06/06/2020 Scan Encounter Unspecified Department <No scans attached> Allergies Active Allergy Reactions Severity Noted Date Comments Valsartan 07/10/2010 Enalapril 05/21/2006 Escitalopram Oxalate Nausea/vomiting 10/11/2009 Nauseated Iodinated Diagnostic Agents Nausea/vomiting 05/2010 IV Contrast Lisinopril 05/21/2006 Metoprolol Tartrate 11/18/2006 Made pulse low [place] Oil-Black Currant-Vit E 07/10/2010 Verapamil 03/21/2004 Bupropion [...] 300 Each 1 01/05/2020 Active Glucose Blood (dscout CONTOUR TEST) STRPIndications:Type 2 diabetes mellitus with hemoglobin A1c goal of less than 7.0% ([facility]) USE TO TEST BLOOD SUGAR [...] B, 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 ([facility]) INHALE 1 PUFF BY MOUTH EVERY DAY 30 Each 3 03/09/2020 Active omeprazole (PRILOSEC) 20 MG CPDRIndications:Isch emic colitis ([facility]) TAKE 1 CAPSULE BY MOUTH [...] PM dilTIAZem HCl ER Beads 360 MG [id number]:HTN, goal below 130/80 TAKE 1 CAPSULE BY [...] Hypoxemia 10/08/2011 10/30/2015 Genetic Sleep Disorder Research Other*[id number] 07/25/2011 05/15/2016 Diverticulitis of colon 07/25/2011 01/06/20 [...] Internal Medicine Marcela Pinto MD 200 [facility] [place], [place] [id number] 06/27/2020 Imaging Radiology 08/08/2020 Office Visit Internal Medicine Marcela Pinto MD [address] [facility] [place], [place] [id number] 11/23/2020 Office Visit Internal Medicine Marcela Pinto MD [address] [facility] [place] [address] [phone] Health Maintenance Due Date Last Done Comments Zoster Vaccines (2 of 3) 08/31/2012 07/06/2012 CKD PHOS USE SMARTSET 04594 03/22/2020 03/22/2019 DXA-EVERY 5 YRS-USE SMARTSET# 3348 TO ORDER 05/01/2020 05/01/2015, 06/19/2010, 06/19/2010, Additional history exists Influenza Vaccine (FLU shot) (#1) 2020 07/09/2019, 06/16/2018, 07/30/2017, Additional history exists DIABETES-EYE EXAM 08/10/2020 08/10/2019, , 08/04/2017, Additional history exists DIABETES-HGBA1C EVERY 6 MONTHS 09/10/2020 03/10/2020, 02/02/2020, 08/26/2019, Additional history exists DIABETES-FOOT EXAM 10/19/2020 10/19/2019, 0 01/05/2019, 01/16/2018, Additional history exists CKD GFR USE SMARTSET 67313 11/27/202005/27, 05/18/2020, 03/10/2020, Additional history exists DIABETES-URINE MICROALBUMIN EVERY 12 MONTHS 12/08/2020 12/08/2019, 10/30/2019, 07/09/2019, Additional history exists CKD HGB USE SMARTSET 44969 05/27/202105/27, 05/18/2020, 04/03/2020, Additional history exists COLONOSCOPY-EVERY [...] Documents on File Type Date Recorded Patient Genetic Scientist 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
--- OUTSIDE RECORDS SUMMARY | 2023-06-18 03:23 | External Medical Summary | Summary of Care ---
Author Name Unknown Organization [place] [address] Care Team Providers Care Ski Maker Wood Name Role Phone Marcela Pinto MD Primary Care Provider [phone] Encounter Details Date Type Department Care Team Description 06/12/2020 Result Scan Gastroenterology, [facility] [address] [facility] [place] [address] To Cueva CRNP [address] [facility] [address] <No scans attached> Allergies Active Allergy Reactions Severity Noted Date Comments Valsartan 07/10/2010 Enalapril 05/21/2006 Escitalopram Oxalate Nausea/vomiting 10/11/2009 Nauseated Iodinated Diagnostic Agents Nausea/vomiting 05/2010 IV Contrast Lisinopril 05/21/2006 Metoprolol Tartrate 11/18/2006 Made pulse low [place] Oil-Black Currant-Vit E 07/10/2010 Verapamil 03/21/2004 Bupropion [...] 300 Each 1 01/05/2020 Active Glucose Blood (e-volo CONTOUR TEST) STRPIndications:Type 2 diabetes mellitus with [...] , group B, 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 ([place] [...] PM dilTIAZem HCl ER Beads 360 MG NH27Bifcqmwkpic:HTN, goal below 130/80 TAKE 1 CAPSULE BY [...] Hypoxemia 10/08/2011 10/30/2015 Genetic Sleep Disorder Research Other*[id number] 07/25/2011 05/15/2016 Diverticulitis of colon 07/25/2011 01/06/20 [...] Visit Internal Medicine Marcela Pinto MD [address] [facility] [place] [address] [phone] 06/27/2020 Imaging Radiology 08/08/2020 Office Visit Internal Medicine Marcela Pinto MD [address] [place] [address] [phone] 11/23/2020 Office Visit Internal Medicine Marcela Pinto MD [address] [place], [place] [phone] Health Maintenance Due Date Last Done Comments Zoster Vaccines (2 of 3) 08/31/2012 07/06/2012 CKD PHOS USE SMARTSET 73588 03/22/2020 03/22/2019 DXA-EVERY 5 YRS-USE SMARTSET# 3348 TO ORDER 05/01/2020 05/01/2015, 06/19/2010, 06/19/2010, Additional history exists Influenza Vaccine (FLU shot) (#1) 2020 07/09/2019, 06/16/2018, 07/30/2017, Additional history exists DIABETES-EYE EXAM 08/10/2020 08/10/2019, , 08/04/2017, Additional history exists DIABETES-HGBA1C EVERY 6 MONTHS 09/10/2020 03/10/2020, 02/02/2020, 08/26/2019, Additional history exists DIABETES-FOOT EXAM 10/19/2020 10/19/2019, 0 01/05/2019, 01/16/2018, Additional history exists CKD GFR USE SMARTSET 51715 11/27/202005/27, 05/18/2020, 03/10/2020, Additional history exists DIABETES-URINE MICROALBUMIN EVERY 12 MONTHS 12/08/2020 12/08/2019, 10/30/2019, 07/09/2019, Additional history exists CKD HGB USE SMARTSET 39090 05/27/202105/27, 05/18/2020, 04/03/2020, Additional history exists COLONOSCOPY-EVERY [...] Date/Time Associated Diagnosis Comments RADIOLOGY SCANNED RESULT 06/12/2020 documented in this encounter Results * RADIOLOGY SCANNED RESULT (06/12/2020) Specimen Narrative Performed At documented in this encounter Advance Directives Documents on File Type Date Recorded Patient Credit Card Clerk 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
--- OUTSIDE RECORDS SUMMARY | 2023-06-18 03:23 | External Medical Summary | Summary of Care ---
Author Name Unknown Organization [place] [address] Care Team Providers Care Assistant Superintendent For Curriculum Name Role Phone Marcela Pinto MD Primary Care Provider [phone] Reason for Visit * Reason Comments New Consultation Encounter Details Date Type Department Care Team Description 06/13[facility] [address] [place] [address] Ingris Reyes MD [address] [place] [address] Diverticulitis of large intestine without perforation or abscess, unspecified bleeding status* Allergies Active Allergy Reactions Severity Noted Date Comments Valsartan 07/10/2010 Enalapril 05/21/2006 Escitalopram Oxalate Nausea/vomiting 10/11/2009 Nauseated Iodinated Diagnostic Agents Nausea/vomiting 05/2010 IV Contrast Lisinopril 05/21/2006 Metoprolol Tartrate 11/18/2006 Made pulse low [place] Oil-Black Currant-Vit E 07/10/2010 Verapamil 03/21/2004 [...] 300 Each 1 01/05/2020 Active Glucose Blood (Trippy CONTOUR TEST) STRPIndications:Type 2 diabetes mellitus with hemoglobin A1c goal of less than 7.0% ([facility]) USE TO TEST BLOOD SUGAR 3 TIMES A DAY FOR DIAGNOSIS CODE OF E11.9 300 Strip 1 01/05/2020 Active Blood Glucose Monitoring Suppl (CONTOUR MONITOR) w/Device KIT USE TO TEST BLOOD SUGAR 3 TIMES A DAY FOR DIAGNOSIS CODE OF E11.9 1 Kit 0 01/05/2020 Active COMBIVENT RESPIMAT 20-100 MCG/ACT InhalerIndications:A sthma with severity to be determined,COPD, moderate ([facility]) TAKE 1 PUFF BY MOUTH 4 TIMES A DAY 12 g 3 01/14/2020 Active atorvaSTATin (LIPITOR) 40 MG TabletIndications:Hy perlipidemia with target LDL less than 100 TAKE 1 TABLET BY MOUTH EVERY DAY 90 Tab 1 02/28/2020 Active INCRUSE ELLIPTA 62.5 MCG/INH AEPBIndications:COPD , group B, 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 ([facility]) INHALE 1 PUFF BY MOUTH EVERY DAY 30 Each 3 03/09/2020 Active omeprazole (PRILOSEC) 20 MG CPDRIndications:Isch emic colitis ([facility]) TAKE 1 CAPSULE BY MOUTH [...] PM dilTIAZem HCl ER Beads 360 MG [id number]:HTN, goal below 130/80 TAKE 1 CAPSULE BY [...] Hypoxemia 10/08/2011 10/30/2015 Genetic Sleep Disorder Research Other*[id number] 07/25/2011 05/15/2016 Diverticulitis of colon 07/25/2011 01/06/20 [...] as of this encounter Progress Notes * Ingris Reyes MD - 06/13/2020 3:31 PM EDT After connecting through [email or web address], patient was identified by name and date of and/or wristband checked. Patient (or authorized legal field marketing representative) was then informed that this was a Telemedicine visit and that the exam was being conducted confidentially over secure lines. My office door wasclosed. No one else was in the room with me. Patient acknowledged consent and understanding of privacy and security of the Telemedicine visit and gave permission to have a telemedicine presenter stayin the room in order to assist with the history and to conduct the exam as needed. I informed the patient that I have reviewed their record in [facility] and presented the opportunity for them to ask any questions regarding the visit today. The patient agreed to participate. ID Consult Note This is a 49 y/o female w/ hx of DM2 w/ gastroparesis, chronic diverticulosis w/ recurrent sigmoid diverticulitis, asthma, COPD, and chronic hypoxic respiratory failure on home O2, parox A fib s/p watchman procedure, and chronic diastolic CHF. Patient has been dealing w/ persistent nausea x 4 weeks. Patient had mild L lower abd pain started after admission to hospital, not before, but it has almost resolved. Patient took cipro and flagyl x1 day prior to admission to [facility] (06/02/20). Patient was monitored on zosyn from 06/02-06/05, w/c was switched to Augmentin. Augmentin was switched to CTX and flagyl overnight for hematochezia noted by the overnight physician. Patient has not had diarrhea per Dr. Begum at [facility]: patient has been constipated. However, patient was noted to have 2 brown semi-formed BMs w/ a small amount of dark red blood yesterday. Patient also had large rectal bleeding on 06/10, and moderate amount 06/12. CT A/Ps showed giant diverticulum of prox sigmoid colon again not much different from prior exam w/ mild adjacent infiltration and mild wall thickening of proximal to mid sigmoid colon. Repeat CT on 06/11 showed persistent wall thickening of prox sigmoid colon and mild adjacent infiltration. [facility] bleeding scan showed no evidence of active GI bleeding (06/11). Patient has never been febrile. ID was called for abx recommendation. Patient denies diarrhea, vomiting, abd pain, f/c, cough, cp, sob, or urinary symptoms. She notices minimal amount of blood in BM. Nausea is bothering me, nothing else. ABX CTX (06/12-) Metronidazole (06/05-, -) Augmentin (06/06-) Cipro () Zosyn () BP 107/67, P 73, R 16, Temp 36.6C, O2 sat 97 on 2 liter O2 WBC 11.5K ->-> 14.41K (06/10) ->-> 9.84K H 8.0 Plt 351K Cr 0.77 C diff pcr (06/13): neg CT A/P (06/02): IMPRESSION: Redemonstration of a giant diverticulum of the proximal sigmoid colon which was presenton prior exams. Mild adjacent infiltration and mild wall thickening of the proximal to mid sigmoid colon. The findings favor acute sigmoid diverticulitis. A nonspecific colitis could appear similar but is considered less likely. No free air or abscess. CT A/P (06/11): IMPRESSION: Colonic diverticulosis with persistent wall thickening of proximal sigmoid colon and mild adjacent infiltration consistent with acute diverticulitis. If not recently performed, a follow-up nonemergent colonoscopy is recommended to exclude the less likely possibility of an underlying mass. 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 NM GI bleeding (06/11): no evidence of active GI bleeding Impression: Persistent nausea 2/2 diabetic gastroparesis vs diverticulitis or both? R/o recurrent sigmoid diverticulitis R/o diverticular hemorrhage Diabetic gastroparesis Hx of DM2, chronic diverticulosis w/ recurrent sigmoid diverticulitis, COPD, and chronic hypoxic respiratory failure on home O2 Recommendations: - Hold abx and monitor patient off abx therapy. If patient clinically deteriorates or develops fever while off abx, consider starting either cefepime/ flagyl or meropenem - She may need workup to r/o worsening gastroparesis. What is bothering her now is persistent nausea w/c has been going on for past 4 weeks. I am aware of the CT findings (06/02 and ), w/c may or may not represents acute diverticulitis that requiring abx therapy. She is afebrile and w/o leukocytosis and she has been abx therapy from 06/01. Case discussed w/ Dr. Begum. documented in this encounter Plan of Treatment Upcoming Encounters Date Type Specialty Care Team Description 06/27/2020 Imaging Radiology 08/08/2020 Office Visit Internal Medicine Marcela Pinto MD [address] [place] [address] [phone] 11/23/2020 Office Visit Internal Medicine Marcela Pinto MD [address] [facility] [place] [address] [phone] Health Maintenance Due Date Last Done Comments Zoster Vaccines (2 of 3) 08/31/2012 07/06/2012 CKD PHOS USE SMARTSET 40452 03/22/2020 03/22/2019 DXA-EVERY 5 YRS-USE SMARTSET# 3348 TO ORDER 05/01/2020 05/01/2015, 06/19/2010, 06/19/2010, Additional history exists Influenza Vaccine (FLU shot) (#1) 2020 07/09/2019, 06/16/2018, 07/30/2017, Additional history exists DIABETES-EYE EXAM 08/10/2020 08/10/2019, , 08/04/2017, Additional history exists DIABETES-HGBA1C EVERY 6 MONTHS 09/10/2020 03/10/2020, 02/02/2020, 08/26/2019, Additional history exists DIABETES-FOOT EXAM 10/19/2020 10/19/2019, 0 01/05/2019, 01/16/2018, Additional history exists CKD GFR USE SMARTSET 30289 11/27/202005/27, 05/18/2020, 03/10/2020, Additional history exists DIABETES-URINE MICROALBUMIN EVERY 12 MONTHS 12/08/2020 12/08/2019, 10/30/2019, 07/09/2019, Additional history exists CKD HGB USE SMARTSET 53228 05/27/202105/27, 05/18/2020, 04/03/2020, Additional history exists COLONOSCOPY-EVERY [...] Visit Diagnoses Diagnosis Diverticulitis of large intestine without perforation or abscess, unspecified bleeding status- Primary documented in this encounter Advance Directives Documents on File Type Date Recorded Patient Mat Sewer 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
--- OUTSIDE RECORDS SUMMARY | 2023-06-18 03:23 | External Medical Summary | Summary of Care ---
Author Name Unknown Organization [place] [address] Care Team Providers Care Embossing Press Operator Molded Goods Name Role Phone Marcela Pinto MD Primary Care Provider [phone] Encounter Details Date Type Department Care Team [...] as of this encounter (statuses as of 06/14/2020) Medications Medication Sig Dispensed Refills Start Date [...] 300 Each 1 01/05/2020 Active Glucose Blood (Socket Mobile CONTOUR TEST) STRPIndications:Type 2 diabetes mellitus with hemoglobin A1c goal of less than 7.0% ([facility]) USE TO TEST BLOOD SUGAR 3 TIMES A DAY FOR DIAGNOSIS CODE OF E11.9 300 Strip 1 01/05/2020 Active Blood Glucose Monitoring Suppl (CONTOUR MONITOR) w/Device KIT USE TO TEST BLOOD SUGAR 3 TIMES A DAY FOR DIAGNOSIS CODE OF E11.9 1 Kit 0 01/05/2020 Active COMBIVENT RESPIMAT 20-100 MCG/ACT InhalerIndications:A sthma with severity to be determined,COPD, moderate ([facility]) TAKE 1 PUFF BY MOUTH 4 TIMES A DAY 12 g 3 01/14/2020 Active atorvaSTATin (LIPITOR) 40 MG TabletIndications:Hy perlipidemia with target LDL less than 100 TAKE 1 TABLET BY MOUTH EVERY DAY 90 Tab 1 02/28/2020 Active INCRUSE ELLIPTA 62.5 MCG/INH AEPBIndications:COPD , group B, 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 ([facility]) INHALE 1 PUFF BY MOUTH EVERY DAY 30 Each 3 03/09/2020 Active omeprazole (PRILOSEC) 20 MG CPDRIndications:Isch emic colitis ([facility]) TAKE 1 CAPSULE BY MOUTH [...] PM dilTIAZem HCl ER Beads 360 MG [id number]:HTN, goal below 130/80 TAKE 1 CAPSULE BY MOUTH EVERY DAY 90 Cap 1 05/16/2020 Active Ketoconazole 2 % cream Apply topically to affected area 2 times a day for 42 days. Apply to groin area 60 g 11 05/27/2020 0 Active documented as of this encounter (statuses as of 06/14/2020) Active Problems Problem Noted Date Diabetes mellitus [...] as of this encounter (statuses as of 06/14/2020) Resolved Problems Problem Noted Date Resolved Date [...] Hypoxemia 10/08/2011 10/30/2015 Genetic Sleep Disorder Research Other*[id number] 07/25/2011 05/15/2016 Diverticulitis of colon 07/25/2011 01/06/20 [...] as of this encounter (statuses as of 06/14/2020) Immunizations Name Administration Dates Next Due Hepatitis [...] Medicine Marcela Pinto MD [address] [place] [address] [phone] 11/23/2020 Office Visit Internal Medicine Marcela Pinto MD [address] [place], [place] [address] [phone] Health Maintenance Due Date Last Done Comments Zoster Vaccines (2 of 3) 08/31/2012 07/06/2012 CKD PHOS USE SMARTSET 26910 03/22/2020 03/22/2019 DXA-EVERY 5 YRS-USE SMARTSET# 3348 TO ORDER 05/01/2020 05/01/2015, 06/19/2010, 06/19/2010, Additional history exists Influenza Vaccine (FLU shot) (#1) 2020 07/09/2019, 06/16/2018, 07/30/2017, Additional history exists DIABETES-EYE EXAM 08/10/2020 08/10/2019, , 08/04/2017, Additional history exists DIABETES-HGBA1C EVERY 6 MONTHS 09/10/2020 03/10/2020, 02/02/2020, 08/26/2019, Additional history exists DIABETES-FOOT EXAM 10/19/2020 10/19/2019, 0 01/05/2019, 01/16/2018, Additional history exists CKD GFR USE SMARTSET 38904 11/27/202005/27, 05/18/2020, 03/10/2020, Additional history exists DIABETES-URINE MICROALBUMIN EVERY 12 MONTHS 12/08/2020 12/08/2019, 10/30/2019, 07/09/2019, Additional history exists CKD HGB USE SMARTSET 38048 05/27/202105/27, 05/18/2020, 04/03/2020, Additional history exists COLONOSCOPY-EVERY [...] Documents on File Type Date Recorded Patient Bin Tripper Operator 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
--- OUTSIDE RECORDS SUMMARY | 2023-06-18 03:23 | External Medical Summary | Summary of Care ---
Author Name Unknown Organization [place] [address] Care Team Providers Care Utilization Review Rn Name Role Phone Marcela Pinto MD Primary Care Provider [phone] Reason for Visit * Reason Comments Appointment Encounter Details Date Type Department Care Team Description 06/09/2020 Telephone Gastroenterology, [facility] [address] [facility] [place] [address] [facility] Edwards CR[facility] [address] [facility] [address] Appointment Allergies Active Allergy Reactions Severity Noted Date Comments Valsartan 07/10/2010 Enalapril 05/21/2006 Escitalopram Oxalate Nausea/vomiting 10/11/2009 Nauseated Iodinated Diagnostic Agents Nausea/vomiting 05/2010 IV Contrast Lisinopril 05/21/2006 Metoprolol Tartrate 11/18/2006 Made pulse low [place] Oil-Black Currant-Vit E 07/10/2010 Verapamil 03/21/2004 Bupropion [...] 300 Each 1 01/05/2020 Active Glucose Blood (C[employer]ium CONTOUR TEST) STRPIndications:Type 2 diabetes mellitus with [...] , group B, 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 ([facility]) INHALE 1 PUFF BY MOUTH EVERY DAY 30 Each 3 03/09/2020 Active omeprazole (PRILOSEC) 20 MG CPDRIndications:Isch emic colitis ([facility]) TAKE 1 CAPSULE [...] PM dilTIAZem HCl ER Beads 360 MG IP06Gbrxjqvmnho:HTN, goal below 130/80 TAKE 1 CAPSULE BY [...] Hypoxemia 10/08/2011 10/30/2015 Genetic Sleep Disorder Research Other*[id number] 07/25/2011 05/15/2016 Diverticulitis of colon 07/25/2011 01/06/20 [...] Telephone Encounter - Chelsea Quintana OSA - 06/20/2020 3:40 PM EDT Patient is scheduled and agreeable to appointment with Dr Eagle on 07/12/2020 at 1:40pm. * Telephone Encounter - Chelsea Quintana OSA - 06/13/2020 11:57 AM EDT Left message via home to return call to get scheduled. * Telephone Encounter - Lilibeth Edwards CRNP - 06/09/2020 11:19 AM EDT Pt seen at [facility] for nausea. 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 Pls call her next week to offer GI clinic appt w Dr. Eagle to discuss indication for repeat EUS to re-eval stromal tumor. NIECY Kunz documented in this encounter Plan of Treatment Upcoming Encounters Date Type Specialty Care Team Description 06/22/2020 Office Visit Internal Medicine Marcela Pinto MD [address] [place] [address] [phone] 06/27/2020 Imaging Radiology 07/12/2020 Office Visit Gastroenterology Zulay Eagle DO [address] [facility] [place] [address] [phone] 08/08/2020 Office Visit Internal Medicine Marcela Pinto MD [address] [place] [address] [phone] 11/23/2020 Office Visit Internal Medicine Marcela Pinto MD [address] [place] [address] [phone] Health Maintenance Due Date Last Done Comments Zoster Vaccines (2 of 3) 08/31/2012 07/06/2012 CKD PHOS USE SMARTSET 77592 03/22/2020 03/22/2019 DXA-EVERY 5 YRS-USE SMARTSET# 3348 TO ORDER 05/01/2020 05/01/2015, 06/19/2010, 06/19/2010, Additional history exists Influenza Vaccine (FLU shot) (#1) 2020 07/09/2019, 06/16/2018, 07/30/2017, Additional history exists DIABETES-EYE EXAM 08/10/2020 08/10/2019, , 08/04/2017, Additional history exists DIABETES-HGBA1C EVERY 6 MONTHS 09/10/2020 03/10/2020, 02/02/2020, 08/26/2019, Additional history exists DIABETES-FOOT EXAM 10/19/2020 10/19/2019, 0 01/05/2019, 01/16/2018, Additional history exists CKD GFR USE SMARTSET 64928 11/27/202005/27, 05/18/2020, 03/10/2020, Additional history exists DIABETES-URINE MICROALBUMIN EVERY 12 MONTHS 12/08/2020 12/08/2019, 10/30/2019, 07/09/2019, Additional history exists CKD HGB USE SMARTSET 15694 05/27/202105/27, 05/18/2020, 04/03/2020, Additional history exists COLONOSCOPY-EVERY [...] Documents on File Type Date Recorded Patient Brand Marketing Manager 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
--- OUTSIDE RECORDS SUMMARY | 2023-06-18 03:24 | External Medical Summary | Summary of Care ---
Author Name Unknown Organization [place] [address] Care Team Providers Care Jewelry Maker Name Role Phone Marcela Pinto MD Primary Care Provider [phone] Reason for Visit * Reason Comments Test Results Encounter Details Date Type Department Care Team Description 05/19/2020 Telephone General Internal Medicine [facility] [address] [place] [address] Marcela Pinto MD [address] [place], [place] [id number] Test Results Allergies Active Allergy Reactions Severity Noted Date Comments Valsartan 07/10/2010 Enalapril 05/21/2006 Escitalopram Oxalate Nausea/vomiting 10/11/2009 Nauseated Iodinated Diagnostic Agents Nausea/vomiting 05/2010 IV Contrast Lisinopril 05/21/2006 Metoprolol Tartrate 11/18/2006 Made pulse low [place] Oil-Black Currant-Vit E 07/10/2010 Verapamil 03/21/2004 Bupropion Hcl 10/30/2009 Makes pt sick in the stomach documented as of this encounter (statuses as of 05/19/2020) Medications Medication Sig Dispensed Refills Start Date [...] 2 times a day. 0 12/27/2019 Active predniSONE (DELTASONE) 10 MG Tablet Take 10 mg by mouth daily. Takes 5 tabs for 2 days, 4 tabs for 2 days, 3 tabs for 2 days, 2 tabs for 2 days and 1 tab for 2 days. Started this regimen on 12/29/2019 so she took 5 tabs today and yesterday (as of today, 12/30/2019). 0 Active Lancets MISCIndications:Type 2 diabetes mellitus with hemoglobin A1c goal of less than 7.0% ([facility]) Use as directed. USE TO TEST BLOOD SUGAR 3 TIMES A DAY FOR DIAGNOSIS CODE OF E11.9 300 Each 1 01/05/2020 Active Glucose Blood (Eayun CONTOUR TEST) STRPIndications:Type 2 diabetes mellitus with hemoglobin A1c goal of less than 7.0% ([facility]) USE TO TEST BLOOD SUGAR 3 TIMES [...] moderate ([facility]) TAKE 1 PUFF BY MOUTH 4 TIMES [...] emic colitis ([facility]) TAKE 1 CAPSULE BY MOUTH TWICE [...] PM dilTIAZem HCl ER Beads 360 MG DO37Azrgjsidmgp:HTN, goal below 130/80 TAKE 1 CAPSULE BY MOUTH EVERY DAY 90 Cap 1 05/16/2020 Active ciprofloxacin (CIPRO) 500 MG TabletIndications:Ab dominal pain, left lower quadrant Take 1 Tab by mouth every 12 hours for 10 days. 20 Tab 0 05/18/2020 0 Active metroNIDAZOLE (FLAGYL) 500 MG Tablet Take 1 Tab by mouth 3 times a day for 10 days. 30 Tab 0 05/18/2020 0 Active nystatin 616732 UNIT/GM ointment Apply topically to affected area 2 times a day. To affacted area for two weeks. 15 g 2 05/19/2020 Active documented as of this encounter (statuses as of 05/19/2020) Active Problems Problem Noted Date Morbid obesity with BMI of 40.0-44.9, ad [...] as of this encounter (statuses as of 05/19/2020) Resolved Problems Problem Noted Date Resolved Date [...] Hypoxemia 10/08/2011 10/30/2015 Genetic Sleep Disorder Research Other*[id number] 07/25/2011 05/15/2016 Diverticulitis of colon 07/25/2011 01/06/20 [...] as of this encounter (statuses as of 05/19/2020) Immunizations Name Administration Dates Next Due Hepatitis [...] have Coronavirus / COVID-19? No / Unsure 05/18/2020 12:27 PM EDT documented as of this encounter Miscellaneous Notes * Telephone Encounter - Marcela Pinto MD - 05/19/2020 7:38 PM EDT Noted. Agree. * Telephone Encounter - Mohinder Landry RN - 05/19/2020 3:43 PM EDT Called patient and informed her of Dr. Pinto's result message. She verbalized understanding of all information. Patient said her side still hurts but not real bad. Patient denies any fever or chills at this time. Patient also asked about her blood count. She said she is still having bleeding. Discussed above message with Dr. Marcela Pinto. Per Dr. Pinto patient is to get repeat blood work in 10 days. Also patient should wait to until Friday05/22/2020 and if still having pain she should start antibiotic. If pain or symptoms worsens, patient should go to the ER. Called patient and informed her of Dr. Pinto's message above. She verbalized understanding of all information and will comply. Lab orders placed. FYI. * Telephone Encounter - Mohinder Landry RN - 05/19/2020 3:41 PM EDT ----- Message from Marcela Pinto MD sent at 05/19/2020 3:24 PM EDT ----- Labs done today shows worsening GFR with creatinine of 1.1, slightly high WBC count. If patient hasworsening abdominal pain or fever or chills then she can start taking Cipro and Flagyl we give it to her today for possible diverticular infection. Repeat BMP, CBCD in month from now. Continue hydration with water. documented in this encounter Plan of Treatment Upcoming Encounters Date Type Specialty Care Team Description 06/06/2020 Imaging Radiology 08/08/2020 Office Visit Internal Medicine Marcela Pinto MD [address] [facility] [place] [address] [phone] 11/23/2020 Office Visit Internal Medicine Marcela Pinto MD [address] [facility] [place] [address] [phone] Scheduled Orders Name Type Priority Associated Diagnoses Orde r Schedule CBC/DIFF Lab Routine Elevated WBC count Expected: 05/29/2020 (Approximate), Expires: 05/19/2021 BASIC METAB PANEL, BMP Lab Routine Elevated serum creatinine Expected: 05/29/2020 (Approximate), Expires: 05/19/2021 Health Maintenance Due Date Last Done Comments Zoster Vaccines (2 of 3) 08/31/2012 07/06/2012 DXA-EVERY 5 YRS-USE SMARTSET# 3348 TO ORDER [...] 12/08/2020 12/08/2019, 10/30/2019, 07/09/2019, Additional history exists COLONOSCOPY-EVERY 3 YRS AGES 18-100 05/08/2023 05/08/2020, 02/28/2018, 06/05/2017, Additional history exists DTaP,Tdap,and Td Vaccines (2 - Td) 06/04/2028 06/04/2018, 02/28/2009 Pneumococcal Vaccine: 65+ Years Completed 03/28/2015, 05/21/2006 MENINGOCOCCAL (MENACTRA/MENVEO) Aged Out No longer eligible based on patient's age to complete this topic documented as of this encounter Implants Not on filedocumented as of this encounter Visit Diagnoses Diagnosis Elevated serum creatinine- Primary Other nonspecific findings on examination of blood Elevated WBC count Leukocytosis, unspecified documented in this encounter Advance Directives Documents on File Type Date Recorded 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
--- OUTSIDE RECORDS SUMMARY | 2023-06-18 03:24 | External Medical Summary | Summary of Care ---
Author Name Unknown Organization [place] [address] Care Team Providers Care Adoption Manager Name Role Phone Marcela Pinto MD Primary Care Provider [phone] Reason for Visit * Reason Comments Test Results Encounter Details Date Type Department Care Team Description 05/19/2020 Telephone General Internal Medicine [facility] [address] [place] [address] Marcela Pinto MD [address] [place], [place] [id number] Test Results Allergies Active Allergy Reactions Severity Noted Date Comments Valsartan 07/10/2010 Enalapril 05/21/2006 Escitalopram Oxalate Nausea/vomiting 10/11/2009 Nauseated Iodinated Diagnostic Agents Nausea/vomiting 05/2010 IV Contrast Lisinopril 05/21/2006 Metoprolol Tartrate 11/18/2006 Made pulse low [place] Oil-Black Currant-Vit E 07/10/2010 Verapamil 03/21/2004 Bupropion [...] 300 Each 1 01/05/2020 Active Glucose Blood (Cal[employer] CONTOUR TEST) STRPIndications:Type 2 diabetes mellitus with [...] PM dilTIAZem HCl ER Beads 360 MG [id number]:HTN, goal below 130/80 TAKE 1 CAPSULE BY [...] 30 Tab 0 05/18/2020 0 Active nystatin 097260 UNIT/GM ointment Apply topically to affected area [...] Hypoxemia 10/08/2011 10/30/2015 Genetic Sleep Disorder Research Other*[id number] 07/25/2011 05/15/2016 Diverticulitis of colon 07/25/2011 01/06/20 [...] Visit Internal Medicine Marcela Pinto MD [address] [place] [address] [phone] 11/23/2020 Office Visit Internal Medicine Marcela Pinto MD [address] [place] [address] [phone] Scheduled Orders Name Type Priority Associated Diagnoses [...] Documents on File Type Date Recorded 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
--- OUTSIDE RECORDS SUMMARY | 2023-06-18 03:24 | External Medical Summary ---
Author Name Unknown Address [address] [place] [address] Phone Organization K01:[facility] [address] [facility] [address] Laboratory Report Ordering Provider Test Date Status NAOMI LÓPEZ 05/27/2020 16:51:00 Final Observation Date Value Abnormality Reference (Units ) Status WBC, Total 05/27/2020 20:19 11.86 Above high normal 4.00-10.80 (K/uL) Final RBC 05/27/2020 20:19 4.14 3.85-5.15 (M/uL) Final Hemoglobin 05/27/2020 20:19 11.4 Below low normal 12.0-15.3 (g/dL) Final HCT 05/27/2020 20:19 37.5 36.0-45.2 (%) Final MCV 05/27/2020 20:19 90.6 81.5-97.5 (fL) Final MCH 05/27/2020 20:19 27.5 27.0-34.0 (pg) Final MCHC 05/27/2020 20:19 30.4 Below low normal 32.0-36.0 (g/dL) Final RDW 05/27/2020 20:19 13.2 11.5-15.5 (%) Final Platelets 05/27/2020 20:19 435 Above high normal 140-400 (K/uL) Final MPV 05/27/2020 20:19 9.7 6.6-11.1 (fL) Final Nucleated erythrocytes/100 leukocytes [Ratio] in Blood by Automated count 05/27/2020 20:19 0 0 (/100 WBCs) Final Segs 05/27/2020 20:19 59.8 40-75 (%) Final Lymphs % 05/27/2020 20:19 26.7 18-42 (%) Final Monos 05/27/2020 20:19 10.1 1-11 (%) Final Eosinophils 05/27/2020 20:19 2.6 0-6 (%) Final Basos 05/27/2020 20:19 0.4 0-2 (%) Final Immature Granulocyte, Percent 05/27/2020 20:19 0.4 0-2 (%) Final Neutrophils [#/volume] in Blood 05/27/2020 20:19 7.08 1.8-7.7 (K/uL) Final Lymphs, absolute 05/27/2020 20:19 3.17 1.0-4.8 (K/uL) Final Monos, Abs 05/27/2020 20:19 1.20 Above high normal 0.0-1.1 (K/uL) Final Eos, Abs 05/27/2020 20:19 0.31 0.0-0.7 (K/uL) Final Basos, Abs 05/27/2020 20:19 0.05 0.0-0.2 (K/uL) Final Immature Granulocytes, Number 05/27/2020 20:19 0.05 0.0-0.2 (K/uL) Final Performing Location [facility] [address] [place] [address]
--- OUTSIDE RECORDS SUMMARY | 2023-06-18 03:24 | External Medical Summary ---
Author Name Unknown Address [facility] [place] [address] Phone Organization K01:[place] [address] [place] [id number] Laboratory Report Ordering Provider Test Date Status NAOMI LÓPEZ 05/27/2020 16:51:00 Final Observation Date Value Abnormality Reference (Units ) Status BUN 05/27/2020 20:44 12 6-20 (mg/dL) Final Creatinine 05/27/2020 20:44 1.0 0.5-1.0 (mg/ dL) Final E Glom Filt Rate 05/27/2020 20:44 50.3 Below low normal >60 Final Performing Location [facility] [address] [facility] [address]
--- OUTSIDE RECORDS SUMMARY | 2023-06-18 03:24 | External Medical Summary | Summary of Care ---
Author Name Unknown Organization [place] [address] Care Team Providers Care Drying Supervisor Name Role Phone Marcela Pinto MD Primary Care Provider [phone] Reason for Visit * Reason Comments eRx-Medication Refill Encounter Details Date Type Department Care Team Description 05/20/2020 Refill General Internal Medicine [facility] [address] [place], [place] [address] Marcela Pinto MD [address] [place] [address] [phone] Allergies Active Allergy Reactions Severity Noted Date Comments Valsartan 07/10/2010 Enalapril 05/21/2006 Escitalopram Oxalate Nausea/vomiting 10/11/2009 Nauseated Iodinated Diagnostic Agents Nausea/vomiting 05/2010 IV Contrast Lisinopril 05/21/2006 Metoprolol Tartrate 11/18/2006 Made pulse low [place] Oil-Black Currant-Vit E 07/10/2010 Verapamil 03/21/2004 Bupropion Hcl 10/30/2009 Makes pt sick in the stomach documented as of this encounter (statuses as of 05/22/2020) Medications Medication Sig Dispensed Refills Start Date [...] 300 Each 1 01/05/2020 Active Glucose Blood ([employer]ics CONTOUR TEST) STRPIndications:Type 2 diabetes mellitus with hemoglobin A1c goal of less than 7.0% ([facility]) USE TO TEST BLOOD SUGAR 3 TIMES [...] GOLD 2017 classification ([facility]) INHALE 1 PUFF BY MOUTH EVERY DAY 30 Each 3 03/09/2020 Active omeprazole (PRILOSEC) 20 MG CPDRIndications:Isch emic colitis ([facility]) TAKE 1 CAPSULE BY MOUTH TWICE [...] PM dilTIAZem HCl ER Beads 360 MG UL06Qqlmzftearl:HTN, goal below 130/80 TAKE 1 CAPSULE BY [...] 30 Tab 0 05/18/2020 0 Active nystatin 006400 UNIT/GM ointment Apply topically to affected area 2 times a day. To affacted area for two weeks. 15 g 2 05/19/2020 Active documented as of this encounter (statuses as of 05/22/2020) Active Problems Problem Noted Date Morbid obesity [...] as of this encounter (statuses as of 05/22/2020) Resolved Problems Problem Noted Date Resolved Date [...] Hypoxemia 10/08/2011 10/30/2015 Genetic Sleep Disorder Research Other*[id number] 07/25/2011 05/15/2016 Diverticulitis of colon 07/25/2011 01/06/20 [...] as of this encounter (statuses as of 05/22/2020) Immunizations Name Administration Dates Next Due Hepatitis [...] Telephone Encounter - Jud Pereyra RPh - 05/22/2020 10:55 AM EDT Refused Prescriptions: Disp Refills Terazosin HCl 2 MG Capsule [Pharmacy Med N*90 Cap 1 Sig: TAKE 1CAPSULE BY MOUTH EVERY DAYRefused By: JUD PEREYRA for Refusal: Course of treatment co mplete documented in this encounter Plan of Treatment Upcoming Encounters Date Type Specialty Care Team Description 06/06/2020 Imaging Radiology 08/08/2020 Office Visit Internal Medicine Marcela Pinto MD [address] [place] [address] [phone] 11/23/2020 Office Visit Internal Medicine Marcela Pinto MD [address] [facility] [place] [address] [phone] Health Maintenance Due Date Last Done Comments [...] Documents on File Type Date Recorded Patient Buyer Intern 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
--- OUTSIDE RECORDS SUMMARY | 2023-06-18 03:24 | External Medical Summary ---
Author Name Unknown Address [facility] [place] [address] Phone Organization K01:[place] [address] Laboratory Report Ordering Provider Test Date Status NAOMI LÓPEZ 05/27/2020 16:51:00 Final Observation Date Value Abnormality Reference (Units ) Status Lipase 05/27/2020 20:44 10 Below low normal 13-60 (U/L) Final Performing Location [place] [id number]
--- OUTSIDE RECORDS SUMMARY | 2023-06-18 03:24 | External Medical Summary | Summary of Care ---
Author Name Unknown Organization [place] [address] Care Team Providers Care Sales Representative Gas Service Name Role Phone Marcela Pinto MD Primary Care Provider [phone] Reason for Visit * Reason Comments Test Results Encounter Details Date Type Department Care Team Description 05/19/2020 Telephone General Internal Medicine [facility] [address] [place] [address] Marcela Pinto MD [address] [place], [place] [id number] Test Results Allergies Active Allergy Reactions Severity Noted Date Comments Valsartan 07/10/2010 Enalapril 05/21/2006 Escitalopram Oxalate Nausea/vomiting 10/11/2009 Nauseated Iodinated Diagnostic Agents Nausea/vomiting 05/2010 IV Contrast Lisinopril 05/21/2006 Metoprolol Tartrate 11/18/2006 Made pulse low [place] Oil-Black Currant-Vit E 07/10/2010 Verapamil 03/21/2004 Bupropion [...] 300 Each 1 01/05/2020 Active Glucose Blood ([employer] Esc[employer] CONTOUR TEST) STRPIndications:Type 2 diabetes mellitus with hemoglobin A1c goal of less than 7.0% ([facility]) USE TO TEST BLOOD SUGAR 3 TIMES [...] group B, 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 ([facility]) INHALE 1 PUFF BY MOUTH EVERY DAY 30 Each 3 03/09/2020 Active omeprazole (PRILOSEC) 20 MG CPDRIndications:Isch emic colitis ([facility]) TAKE 1 CAPSULE BY MOUTH TWICE A [...] PM dilTIAZem HCl ER Beads 360 MG [id number]:HTN, goal below 130/80 TAKE 1 CAPSULE BY [...] 30 Tab 0 05/18/2020 0 Active nystatin 046344 UNIT/GM ointment Apply topically to affected area [...] Hypoxemia 10/08/2011 10/30/2015 Genetic Sleep Disorder Research Other*[id number] 07/25/2011 05/15/2016 Diverticulitis of colon 07/25/2011 01/06/20 [...] encounter Miscellaneous Notes * Telephone Encounter - Kandice Hickman OSA - 05/19/2020 3:28 PM EDT Pt called in for test results for blood work from today. Read provider notes in quick notes to pt. Pt had no further questions. 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
--- OUTSIDE RECORDS SUMMARY | 2023-06-18 03:24 | External Medical Summary | Summary of Care ---
Author Name Unknown Organization [place] [address] Care Team Providers Care Egg Factory Worker Name Role Phone Marcela Pinto MD Primary Care Provider [phone] Encounter Details Date Type Department Care Team Description 06/02/2020 Scan Encounter Unspecified Department <No scans attached> Allergies Active Allergy Reactions Severity Noted Date Comments Valsartan 07/10/2010 Enalapril 05/21/2006 Escitalopram Oxalate Nausea/vomiting 10/11/2009 Nauseated Iodinated Diagnostic Agents Nausea/vomiting 05/2010 IV Contrast Lisinopril 05/21/2006 Metoprolol Tartrate 11/18/2006 Made pulse low [place] Oil-Black Currant-Vit E 07/10/2010 Verapamil 03/21/2004 Bupropion Hcl 10/30/2009 Makes pt sick in the stomach documented as of this encounter (statuses as of 06/05/2020) Medications Medication Sig Dispensed Refills Start Date [...] 300 Each 1 01/05/2020 Active Glucose Blood ([employer] CONTOUR TEST) STRPIndications:Type 2 diabetes mellitus with hemoglobin A1c goal of less than 7.0% ([facility]) USE TO TEST BLOOD [...] , group B, by GOLD 2017 classification ([place] [...] PM dilTIAZem HCl ER Beads 360 MG DM75Yyljsututlk:HTN, goal below 130/80 TAKE 1 CAPSULE BY MOUTH EVERY DAY 90 Cap 1 05/16/2020 Active Ketoconazole 2 % cream Apply topically to affected area 2 times a day for 42 days. Apply to groin area 60 g 11 05/27/2020 0 Active documented as of this encounter (statuses as of 06/05/2020) Active Problems Problem Noted Date Diabetes mellitus [...] as of this encounter (statuses as of 06/05/2020) Resolved Problems Problem Noted Date Resolved Date [...] Hypoxemia 10/08/2011 10/30/2015 Genetic Sleep Disorder Research Other*[id number] 07/25/2011 05/15/2016 Diverticulitis of colon 07/25/2011 01/06/20 [...] as of this encounter (statuses as of 06/05/2020) Immunizations Name Administration Dates Next Due Hepatitis [...] Medicine Marcela Pinto MD [address] [place] [address] [phone] 11/23/2020 Office Visit Internal Medicine Marcela Pinto MD [address] [place], [place] [address] [phone] Health Maintenance Due Date Last Done Comments Zoster Vaccines (2 of 3) 08/31/2012 07/06/2012 CKD PHOS USE SMARTSET 17835 03/22/2020 03/22/2019 DXA-EVERY 5 YRS-USE SMARTSET# 3348 TO ORDER 05/01/2020 05/01/2015, 06/19/2010, 06/19/2010, Additional history exists Influenza Vaccine (FLU shot) (#1) 2020 07/09/2019, 06/16/2018, 07/30/2017, Additional history exists DIABETES-EYE EXAM 08/10/2020 08/10/2019, , 08/04/2017, Additional history exists DIABETES-HGBA1C EVERY 6 MONTHS 09/10/2020 03/10/2020, 02/02/2020, 08/26/2019, Additional history exists DIABETES-FOOT EXAM 10/19/2020 10/19/2019, 0 01/05/2019, 01/16/2018, Additional history exists CKD GFR USE SMARTSET 42443 11/27/202005/27, 05/18/2020, 03/10/2020, Additional history exists DIABETES-URINE MICROALBUMIN EVERY 12 MONTHS 12/08/2020 12/08/2019, 10/30/2019, 07/09/2019, Additional history exists CKD HGB USE SMARTSET 30404 05/27/202105/27, 05/18/2020, 04/03/2020, Additional history exists COLONOSCOPY-EVERY [...] Documents on File Type Date Recorded 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
--- OUTSIDE RECORDS SUMMARY | 2023-06-18 03:24 | External Medical Summary | Summary of Care ---
Author Name Unknown Organization [place] [address] Care Team Providers Care Stroke Belt Sander Operator Name Role Phone Marcela Pinto MD Primary Care Provider [phone] Encounter Details Date Type Department Care Team Description 06/02/2020 Scan Encounter Unspecified Department <No scans attached> Allergies Active Allergy Reactions Severity Noted Date Comments Valsartan 07/10/2010 Enalapril 05/21/2006 Escitalopram Oxalate Nausea/vomiting 10/11/2009 Nauseated Iodinated Diagnostic Agents Nausea/vomiting 05/2010 IV Contrast Lisinopril 05/21/2006 Metoprolol Tartrate 11/18/2006 Made pulse low [place] Oil-Black Currant-Vit E 07/10/2010 Verapamil 03/21/2004 [...] 300 Each 1 01/05/2020 Active Glucose Blood (Be[employer] CONTOUR TEST) STRPIndications:Type 2 diabetes mellitus with hemoglobin A1c goal of less than 7.0% ([facility]) USE TO TEST BLOOD SUGAR 3 TIMES A DAY FOR DIAGNOSIS CODE OF E11.9 300 Strip 1 01/05/2020 Active Blood Glucose Monitoring Suppl (CONTOUR MONITOR) w/Device KIT USE TO TEST BLOOD SUGAR 3 TIMES A DAY FOR DIAGNOSIS CODE OF E11.9 1 Kit 0 01/05/2020 Active COMBIVENT RESPIMAT 20-100 MCG/ACT InhalerIndications:A sthma with severity to be determined,COPD, moderate ([facility]) TAKE 1 PUFF BY MOUTH 4 TIMES A DAY 12 g 3 01/14/2020 Active atorvaSTATin (LIPITOR) 40 MG TabletIndications:Hy perlipidemia with target LDL less than 100 TAKE 1 TABLET BY MOUTH EVERY DAY 90 Tab 1 02/28/2020 Active INCRUSE ELLIPTA 62.5 MCG/INH AEPBIndications:COPD , group B, by GOLD 2017 classification ([facility]) INHALE 1 PUFF BY MOUTH EVERY DAY 30 Each 3 03/09/2020 Active omeprazole (PRILOSEC) 20 MG CPDRIndications:Isch emic colitis ([facility]) TAKE 1 [...] PM dilTIAZem HCl ER Beads 360 MG LT06Hrmevvinemv:HTN, goal below 130/80 TAKE 1 CAPSULE BY [...] Hypoxemia 10/08/2011 10/30/2015 Genetic Sleep Disorder Research Other*[id number] 07/25/2011 05/15/2016 Diverticulitis of colon 07/25/2011 01/06/20 [...] Medicine Marcela Pinto MD [address] [place] [address] [phone] 11/23/2020 Office Visit Internal Medicine Marcela Pinto MD [address] [place], [place] [address] [phone] Health Maintenance Due Date Last Done Comments Zoster Vaccines (2 of 3) 08/31/2012 07/06/2012 CKD PHOS USE SMARTSET 67332 03/22/2020 03/22/2019 DXA-EVERY 5 YRS-USE SMARTSET# 3348 TO ORDER 05/01/2020 05/01/2015, 06/19/2010, 06/19/2010, Additional history exists Influenza Vaccine (FLU shot) (#1) 2020 07/09/2019, 06/16/2018, 07/30/2017, Additional history exists DIABETES-EYE EXAM 08/10/2020 08/10/2019, , 08/04/2017, Additional history exists DIABETES-HGBA1C EVERY 6 MONTHS 09/10/2020 03/10/2020, 02/02/2020, 08/26/2019, Additional history exists DIABETES-FOOT EXAM 10/19/2020 10/19/2019, 0 01/05/2019, 01/16/2018, Additional history exists CKD GFR USE SMARTSET 84994 11/27/202005/27, 05/18/2020, 03/10/2020, Additional history exists DIABETES-URINE MICROALBUMIN EVERY 12 MONTHS 12/08/2020 12/08/2019, 10/30/2019, 07/09/2019, Additional history exists CKD HGB USE SMARTSET 39519 05/27/202105/27, 05/18/2020, 04/03/2020, Additional history exists COLONOSCOPY-EVERY [...]
--- OUTSIDE RECORDS SUMMARY | 2023-06-18 03:24 | External Medical Summary | Summary of Care ---
Author Name Unknown Organization [place] [address] Care Team Providers Care Equipment Oiler Name Role Phone Marcela Pinto MD Primary Care Provider [phone] Reason for Visit * Reason Comments Med Request Encounter Details Date Type Department Care Team Description 05/18/2020 Telephone General Internal Medicine [facility] [address] [place] [address] Marcela Pinto MD [address] [place] [address] Med Request Allergies Active Allergy Reactions Severity Noted Date Comments Valsartan 07/10/2010 Enalapril 05/21/2006 Escitalopram Oxalate Nausea/vomiting 10/11/2009 Nauseated Iodinated Diagnostic Agents Nausea/vomiting 05/2010 IV Contrast Lisinopril 05/21/2006 Metoprolol Tartrate 11/18/2006 Made pulse low [place] Oil-Black Currant-Vit E 07/10/2010 Verapamil 03/21/2004 Bupropion Hcl 10/30/2009 Makes pt sick in the stomach documented as of this encounter (statuses as of 05/18/2020) Medications Medication Sig Dispensed Refills Start Date [...] (as of today, 12/30/2019). 0 Active Lancets MISCIndications:Typ e 2 diabetes mellitus with hemoglobin A1c goal of less than 7.0% ([facility]) Use as directed. 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 ([facility]) INHALE 1 PUFF BY MOUTH EVERY DAY 30 Each 3 03/09/2020 Active omeprazole (PRILOSEC) 20 MG CPDRIndications:Isc hemic colitis ([facility]) TAKE 1 CAPSULE BY MOUTH TWICE A DAY 180 Cap 1 03/17/2020 Active ondansetron ODT (ZOFRAN) 8 MG TBDPIndications:David sea DISSOLVE 1 TABLET ON TONGUE EVERY 8 HOURS NEEDED FOR NAUSEA 60 Tab 5 03/21/2020 Active zafirlukast (ACCOLATE) 20 MG TabletIndications:A sthma [...] PM dilTIAZem HCl ER Beads 360 MG ZK52Pixepvdkcmw:HTN , goal below 130/80 TAKE 1 CAPSULE BY MOUTH EVERY DAY 90 Cap 1 05/16/2020 Active nystatin-triamcinol one (MYCOLOG) 194671-0.1 UNIT/GM-% creamIndications:De rmatitis Apply topically to affected area 2 times a day for 14 days. To affacted area for two weeks. 30 g 1 05/18/2020 0 Active ciprofloxacin (CIPRO) 500 MG TabletIndications:A bdominal pain, left lower quadrant Take 1 Tab by mouth every 12 hours for 10 days. 20 Tab 0 05/18/2020 0 Active metroNIDAZOLE (FLAGYL) 500 MG Tablet Take 1 Tab by mouth 3 times a day for 10 days. 30 Tab 0 05/18/2020 0 Active metroNIDAZOLE (FLAGYL) 250 MG TabletIndications:A bdominal pain, left lower quadrant Take 2 Tabs by mouth 3 times a day for 10 days. 30 Tab 0 05/18/2020 0 Discontinu ed(Medicat ion/Dose Changed) documented as of this encounter (statuses as of 05/18/2020) Active Problems Problem Noted Date Morbid obesity [...] as of this encounter (statuses as of 05/18/2020) Resolved Problems Problem Noted Date Resolved Date [...] Hypoxemia 10/08/2011 10/30/2015 Genetic Sleep Disorder Research Other*[id number] 07/25/2011 05/15/2016 Diverticulitis of colon 07/25/2011 01/06/20 [...] as of this encounter (statuses as of 05/18/2020) Immunizations Name Administration Dates Next Due Hepatitis [...] Telephone Encounter - Marcela Pinto MD - 05/18/2020 2:33 PM EDT Script resent with correction. Please inform. Thanks. * Telephone Encounter - Wily Mi OSA - 05/18/2020 1:20 PM EDT Mendel from the [facility] calling metroNIDAZOLE (FLAGYL) 250 MG Tablet Take 2 Tabs by mouth 3 times a day for 10 days. 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
--- OUTSIDE RECORDS SUMMARY | 2023-06-18 03:24 | External Medical Summary | Summary of Care ---
Author Name Unknown Organization [place] [address] Care Team Providers Care Manager Of Development Name Role Phone Marcela Pinto MD Primary Care Provider [phone] Reason for Referral * Precert (Routine) Status Reason Specialty Diagnoses / Procedures Referred By Contact Referred To Contact Pending Review Precert Radiology Diagnoses Abdominal pain, generalized Procedures CT ABD/PELVIS WO IV CONTRAST - W ORAL CONTRAST Jessica Andrade DO [address] [place] [address] Reason for Visit * Reason Comments Nausea Encounter Details Date Type Department Care Team Description 05/27/2020 Office Visit [facility] [address] [facility] [address] Jessica Andrade DO [address] [place] [address] [phone] Postmenopausal status, age-related*; Abdominal pain, generalized Allergies Active Allergy Reactions Severity Noted Date Comments Valsartan 07/10/2010 Enalapril 05/21/2006 Escitalopram Oxalate Nausea/vomiting 10/11/2009 Nauseated Iodinated Diagnostic Agents Nausea/vomiting 05/2010 IV Contrast Lisinopril 05/21/2006 Metoprolol Tartrate 11/18/2006 Made pulse low Edroy Oil-Black Currant-Vit E 07/10/2010 Verapamil 03/21/2004 Bupropion Hcl 10/30/2009 Makes pt sick in the stomach documented as of this encounter (statuses as of 05/28/2020) Medications Medication Sig Dispensed Refills Start Date [...] Tab by mouth daily. 100 Tab 3 7 Active Multiple Vitamins-Minerals (ONE DAILY MULTIVITAMIN WOMEN) TABS one pill each day 0 7 Active [facility] SENNA 8.6 MG Tablet TAKE 2 TABLETS BY MOUTH EVERY EVENING FOR 10 DAYS NEEDED FOR CONSTIPATION 0 8 Active Nebulizers (NEBULIZER COMPRESSOR) [facility] [place] Inhale via nebulizer. 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 ([facility]) INHALE 1 PUFF BY MOUTH EVERY DAY 30 Each 3 0 Active omeprazole (PRILOSEC) 20 MG CPDRIndications:Isc hemic colitis (HCC) TAKE 1 CAPSULE BY MOUTH TWICE A DAY 180 Cap 1 0 Active ondansetron ODT (ZOFRAN) 8 MG TBDPIndications:David sea DISSOLVE 1 TABLET ON TONGUE EVERY 8 HOURS NEEDED FOR NAUSEA 60 Tab 5 0 Active zafirlukast (ACCOLATE) 20 MG TabletIndications:A sthma with severity to be determined TAKE 1 TABLET BY MOUTH EVERY DAY 90 Tab 1 0 Active HYDROcodone-acetami nophen 5-325 mg per tab 5-325 MG per tabletIndications:G eneralized osteoarthritis Take 1 Tab by mouth every 6 hours as needed for Pain, Mild. 120 Tab 0 0 Active Potassium Chloride Annalisa ER (KLOR-CON [...] PM dilTIAZem HCl ER Beads 360 MG [id number]:HTN , goal below 130/80 TAKE 1 CAPSULE BY MOUTH EVERY DAY 90 Cap 1 0 Active ciprofloxacin (CIPRO) 500 MG TabletIndications:A bdominal pain, left lower quadrant Take 1 Tab by mouth every 12 hours for 10 days. 20 Tab 0 0 05/28/20 20 Active Additional Information Patient not taking. Reported on 05/27/2020 4:09 PM metroNIDAZOLE (FLAGYL) 500 MG Tablet Take 1 Tab by mouth 3 times a day for 10 days. 30 Tab 0 0 05/28/20 20 Active Additional Information Patient not taking. Reported on 05/27/2020 4:12 PM Ketoconazole 2 % cream Apply topically to affected area 2 times a day for 42 days. Apply to groin area 60 g 11 0 07/08/20 20 Active predniSONE (DELTASONE) 10 MG Tablet Take 10 mg by mouth daily. Takes 5 tabs for 2 days, 4 tabs for 2 days, 3 tabs for 2 days, 2 tabs for 2 days and 1 tab for 2 days. Started this regimen on 12/29/2019 so she took 5 tabs today and yesterday (as of today, 12/30/2019). 0 05/27/20 20 Discontinued nystatin [id number] UNIT/GM ointment Apply topically to affected area 2 times a day. To affacted area for two weeks. 15 g 2 0 05/27/20 20 Discontinued documented as of this encounter (statuses as of 05/28/2020) Active Problems Problem Noted Date Diabetes mellitus [...] as of this encounter (statuses as of 05/28/2020) Resolved Problems Problem Noted Date Resolved Date [...] Hypoxemia 10/08/2011 10/30/2015 Genetic Sleep Disorder Research Other*[id number] 07/25/2011 05/15/2016 Diverticulitis of colon 07/25/2011 01/06/20 [...] as of this encounter (statuses as of 05/28/2020) Immunizations Name Administration Dates Next Due Hepatitis [...] have Coronavirus / COVID-19? No / Unsure 05/27/2020 3:56 PM EDT documented as of this encounter Last Filed Vital Signs Vital Sign Reading Time Taken Comments Blood Pressure 112/78 05/27/2020 4:14 PM EDT Pulse 70 05/27/2020 4:14 PM EDT Temperature 36.7 C (98.1 F) 05/27/2020 4:14 PM ED T Respiratory Rate 18 05/27/2020 4:14 PM EDT Oxygen Saturation 98% 05/27/2020 4:14 PM EDT Inhaled Oxygen Concentration - - Weight - - Height - - Body Mass Index - - documented in this encounter Progress Notes * Jessica Andradely, - 05/27/2020 4:16 PM EDT Subjective: Nina Yang is a 79 year old female. Chief Complaint Patient presents with Nausea HPI: Patient presents today for nausea since . Had finished antibiotics for diverticulitis 2 days prior. Patient reports she has been using Zofran with no relief. Patient reports she has dull chapped red areas on her lower hip areas. Patient reports this appears the day after her colonoscopy. Patient reports she was seen last and was given ointment for it and it is empty now and they wont refill it, nystatin. Patient reports she was having pains in her stomach and was given medication Cipro and Flagyl for that but she was so sick that she quit taking it as she believed it was making her worse. Patient reports she can hardly lay down or sit up it due to the nausea. Patient reports she has not thrown up. Patient reports she is not sure if this would be related to the skin issue or not on her side. Patient reports she has constipation and has not gone to the bathroom very much in the past couple of weeks and has been taking colace and miralax and has to wear a pad as it just drips out. Patient reports the last bowel movement was about 4 or 5 days ago. patient reports she has been having very small bowel movements since then but nothing substantial. Patient reports sometimes she will notice on the pad that it is mucus like or "snotty". Patient reports she is not able to eat much and only had some toast and a banana today. Patient reports there was on and off some bloodafter her colonoscopy but has not noticed any blood in her stool since then. Patient reports her col onoscopy was on the '. 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 Allergic rhinitis J30.9 Nocturnal hypoxia G47.34 Sleep apnea, obstructive G47.33 ACEI/ARB contraindicated [id number] HTN, goal below 140/90 I10 Hyperlipidemia with target LDL less than 100 E78.5 Controlled substance agreement signed Z79.899 Type 2 diabetes mellitus with hemoglobin A1c goal of less than 7.5% ([facility]) E11.9 Hypercalcemia E83.52 Elevated plasma metanephrines R79.89 Irritable bowel syndrome with constipation K58.1 Ischemic colitis ([facility]) K55.9 HECTOR (generalized anxiety disorder) F41.1 COPD, group B, by GOLD 2017 classification ([facility]) J44.9 Morbid obesity with BMI of 40.0-44.9, adult ([facility]) E66.01, Z68.41 Gastro-esophageal reflux disease without esophagitis K21.9 Diabetes mellitus with stage 3 chronic kidney disease ([facility]) E11.22, N18.3 Outpatient Medications Prior to Visit Medication Sig Dispense Refill dilTIAZem HCl ER Beads 360 MG CP24 [...] needed for Pain, Mild. 120 Tab 0 Potassium [...] 1000 UNITS PO TABS one tablet daily [DISCONTINUED] nystatin [id number] UNIT/GM ointment Apply topically to affected area 2 times a day.To affacted area for two weeks. 15 g 2 ciprofloxacin (CIPRO) 500 MG Tablet Take 1 Tab by mouth every 12 hours for 10 days. (Patient not taking: Reported on 05/27/2020) 20 Tab 0 metroNIDAZOLE (FLAGYL) 500 MG Tablet Take 1 Tab by mouth 3 times a day for 10 days. (Patient not taking: Reported on 05/27/2020) 30 Tab 0 guaiFENesin-codeine (ROBITUSSIN AC) 100-10 MG/5ML solution Take 10 mL by mouth every 4 hours asneeded. [DISCONTINUED] predniSONE (DELTASONE) 10 MG Tablet Take 10 mg by mouth daily. Takes 5 tabs for 2 days, 4 tabs for 2 days, 3 tabs for 2 days, 2 tabs for 2 days and 1 tab for 2 days. Started this regimen on 12/29/2019 so she took 5 tabs today and yesterday (as of today, 12/30/2019). zoster vac recomb adjuvanted (SHINGRIX) 50 MCG/0.5ML injection Inject 0.5 mL into a large muscle now and repeat dose in 60 to 180 days. Please fax date this was given to our office. 1 Each 1 No facility-administered medications prior to visit. Last reviewed on 05/27/2020 4:14 PM by Kaci Brown CMA Review of patient's allergies indicates: Allergen Reactions Diovan [Valsartan] Enalapril Escitalopram Oxalate Nausea/vomiting Nauseated Iodinated Diagnostic Agents Nausea/vomiting IV Contrast Lisinopril Metoprolol Tartrate Made pulse low Edroy Oil-Black Currant-Vit E Verapamil Wellbutrin [Bupropion Hcl] Makes pt sick in the stomach Objective: BP 112/78 | Pulse 70 | Temp (Src) 98.1 (Tympanic) | Resp 18 | Wt (0.000kg) | SaO2 98% Physical Exam: General: alert, healthy and no distress Head: Normocephalic, No masses, lesions, tenderness or abnormalities Heart: regular rate & rhythm, no murmurs and no gallops Lungs: chest symmetric with normal AP diameter, no chest deformities noted, no chest wall tenderness, lungs clear to auscultation Pulses: carotid=2/4 w/o bruits Abdomen: abdomen soft, non-tender, normal bowel sounds and no masses or organomegaly Extremities: less than 2 second capillary refill, no joint deformities, effusion, or inflammation Results for NINA YANG ( ) as of 05/27/2020 16:18 Ref. Range 03/10/2020 00:00 04/03/2020 13:58 05/06/2020 14:24 05/08/2020 00:00 05/18/2020 13:13 CBC/DIFF Unknown Rpt (A) WBC Latest Ref Range: 4.00 - 10.80 K/uL 12.68 (H) RBC Latest Ref Range: 3.85 - 5.15 M/uL 4.12 HGB Latest Ref Range: 12.0 - 15.3 g/dL 12.3 11.7 (L) HEMOGLOBIN-OUTSIDE LAB Latest Ref Range: 12.0 - 16.0 GM/DL 12.1 HCT Latest Ref Range: 36.0 - 45.2 % 38.8 37.3 PLATELET COUNT Latest Ref Range: 140 - 400 K/uL 433 (H) FERRITIN Latest Ref Range: 13 - 150 ng/mL 41.2 CHOLESTEROL-Outside Lab Latest Ref Range: 200 MG/DL 162 HDL-OUTSIDE LAB Latest Ref Range: 40 - 59 MG/DL 55.0 CHOL/HDL RATIO-OUTSIDE LAB Latest Ref Range: 4.0 - 7.0 RATIO 2.9 (A) LDL (CALCULATED)-OUTSIDE LAB Latest Ref Range: 100 MG/DL 88.20 LDL (DIRECT MEASURE)-OUTSIDE LAB Latest Ref Range: 100 MG/DL 86 TRIGLYCERIDES-OUTSIDE LAB Latest Ref Range: 30 - 200 MG/DL 94 HEMOGLOBIN, [id number] LAB Latest Ref Range: 3.8 - 5.6 % 7.0 (A) BUN Latest Ref Range: 6 - 20 mg/dL 18 CREATININE Latest Ref Range: 0.5 - 1.0 mg/dL 1.1 (H) CREATININE-OUTSIDE LAB Latest Ref Range: 0.55 - 1.02 MG/DL 1.15 (A) E GLOM FILT RATE Latest Ref Range: >60 47.0 (L) EGFR-OUTSIDE LAB Latest Ref Range: 60 ML/MIN 48 (A) SODIUM Latest Ref Range: 135 - 146 mmol/L 141 POTASSIUM Latest Ref Range: 3.5 - 5.1 mmol/L 4.3 POTASSIUM-OUTSIDE LAB Latest Ref Range: 3.5 - 5.1 MMOL 3.4 (A) CHLORIDE Latest Ref Range: 98 - 107 mmol/L 97 (L) CO2 Latest Ref Range: 22 - 32 mmol/L 34 (H) GLUCOSE Latest Ref Range: 70 - 120 mg/dL 136 (H) GLUCOSE-OUTSIDE LAB Latest Ref Range: 70 - 110 MG/DL 172 (A) CALCIUM Latest Ref Range: 8.4 - 10.2 mg/dL 10.5 (H) ANION GAP Latest Ref Range: 7 - 15 mmol/L 10 ALBUMIN Latest Ref Range: 3.8 - 5.0 g/dL 4.3 ALKALINE PHOSPHATASE Latest Ref Range: 0 - 153 U/L 130 ALT Latest Ref Range: 10 - 35 U/L 11 AST Latest Ref Range: 10 - 35 U/L 17 BILIRUBIN Latest Ref Range: 0 - 1.2 mg/dL 0.3 PROTEIN Latest Ref Range: 6.0 - 8.3 g/dL 7.4 ASSESSMENT/PLAN: Postmenopausal status, age-related (Primary) - DEXA SCAN/BONE MINERAL AXIAL; Future; Expected date: 05/27/2020 Abdominal pain, generalized- significant nausea, not sleeping, recommend ED evaluation now, patientdoes not want to go to ER. Check labs if any significant abnormalities would recommend ER now. - CBC/DIFF; Future; Expected date: 05/27/2020 - COMPR METAB PANEL; Future; Expected date: 05/27/2020 - LIPASE; Future; Expected date: 05/27/2020 - CT ABD/PELVIS WO IV CONTRAST - W ORAL CONTRAST - LIPASE - COMPR METAB PANEL - CBC/DIFF Xray not currently open, US and CT not open. Discussed possibly going to ER now emergently for imaging, pt prefers to avoid hospital, If worse or not improved recommend ERE in meantime while waiting for outpatient imaging. Has contrast dye allergy. Other orders - Ketoconazole 2 % cream; Apply topically to affected area 2 times a day for 42 days. Apply to groin area Follow-up: Return if symptoms worsen or fail to improve. | Check-out note: Lab today, CT - please schedule at [facility] Sun, or Friday at . Jessica Andrade DO documented in this encounter Nursing Notes * Kaci Brown, PRODUCTION MACHINE OPERATOR - 05/27/2020 4:00 PM EDT Patient presents today for nausea since . Patient reports she has been using Zofran with norelief. Patient reports she has dull chapped red areas on her lower hip areas. Patient reports thisappears the day after her colonoscopy. Patient reports she was seen last and was given ointment for it and it is empty now and they wont refill it, nystatin. Patient reports she was having pains in her stomach and was given medication Cipro and Flagyl for that but she was so sick that she quit taking it as she believed it was making her worse. Patient reports she can hardly lay down or sit up it due to the nausea. Patient reports she has not thrown up. Patient reports she is not sure if this would be related to the skin issue or not on her side. Patient reports she has constipation and has not gone to the bathroom very much in the past couple of weeks and has been taking colace andmiralax and has to wear a pad as it just drips out. Patient reports the last bowel movement was about 4 or 5 days ago. patient reports she has been having very small bowel movements since then but nothing substantial. Patient reports sometimes she will notice on the pad that it is mucus like or "snotty". Patient reports she is not able to eat much and only had some toast and a banana today. Patient reports there was on and off some blood after her colonoscopy but has not noticed any blood in her stool since then. Patient reports her colonoscopy was on the '. documented in this encounter Plan of Treatment Upcoming Encounters Date Type Specialty Care Team Description 06/06/2020 Imaging Radiology 08/08/2020 Office Visit Internal Medicine Marcela Pinto MD [address] [place], [place] [address] [phone] 11/23/2020 Office Visit Internal Medicine Marcela Pinto MD [address] [place] [address] [phone] Scheduled Orders Name Type Priority Associated Diagnoses Orde r Schedule DEXA SCAN/BONE MINERAL AXIAL Medical Imaging Routine Postmenopausal status, age-related Expected: 05/27/2020 (Approximate), Expires: 05/27/2021 CT ABD/PELVIS WO IV CONTRAST - W ORAL CONTRAST Medical Imaging Routine Abdominal pain, generalized Ordered: 05/27/2020 Health Maintenance Due Date Last Done Comments Zoster Vaccines (2 of 3) 08/31/2012 07/06/2012 CKD PHOS USE SMARTSET 04575 03/22/2020 03/22/2019 DXA-EVERY 5 YRS-USE SMARTSET# [id number] TO ORDER 05/01/2020 05/01/2015, 06/19/2010, 06/19/2010, Additional history exists Influenza Vaccine (FLU shot) (#1) 2020 07/09/2019, 06/16/2018, 07/30/2017, Additional history exists DIABETES-EYE EXAM 08/10/2020 08/10/2019, , 08/04/2017, Additional history exists DIABETES-HGBA1C EVERY 6 MONTHS 09/10/2020 03/10/2020, 02/02/2020, 08/26/2019, Additional history exists DIABETES-FOOT EXAM 10/19/2020 10/19/2019, 0 01/05/2019, 01/16/2018, Additional history exists CKD GFR USE SMARTSET 12455 11/27/202005/27, 05/18/2020, 03/10/2020, Additional history exists DIABETES-URINE MICROALBUMIN EVERY 12 MONTHS 12/08/2020 12/08/2019, 10/30/2019, 07/09/2019, Additional history exists CKD HGB USE SMARTSET 02839 05/27/202105/27, 05/18/2020, 04/03/2020, Additional history exists COLONOSCOPY-EVERY [...] Procedure Name Priority Date/Time Associated Diagnosis Comments COMPR METAB PANEL Routine 05/27/2020 4:5 1 PM EDT Abdominal pain, generalized CBC/DIFF Routine 05/27/2020 4:51 PM EDT Abdominal pain, generalized LIPASE Routine 05/27/2020 4:51 PM EDT Abdominal pain, generalized documented in this encounter Results * LIPASE (05/27/2020 4:51 PM EDT) LIPASE 10(L) 13 - 60 U/L [facility] Specimen Performing Organization Address City/[facility] e Phone Number [facility] [address] [place] [address] * COMPR METAB PANEL (05/27/2020 4:51 PM EDT) BUN 12 6 - 20 mg/dL [facility] CREATININE 1.0 0.5 - 1.0 mg/dL [facility] E GLOM FILT RATE 50.3(L)Comment:If patient is , multiply estimated GFR by 1.159. >60 [facility] SODIUM 140 135 - 146 mmol/L [facility] POTASSIUM 4.0 3.5 - 5.1 mmol/L [facility] CHLORIDE 97(L) 98 - 107 mmol/L [facility] CO2 32 22 - 32 mmol/L [facility] ANION GAP 11 7 - 15 mmol/L [facility] GLUCOSE 104 70 - 120 mg/dL [facility] ALBUMIN 3.8 3.8 - 5.0 g/dL [facility] AST 20 10 - 35 U/L [facility] ALKALINE PHOSPHATASE 106 0 - 153 U/L [facility] BILIRUBIN, TOTAL 0.3 0 - 1.2 mg/dL [facility] CALCIUM 10.0 8.4 - 10.2 mg/dL [facility] PROTEIN 7.7 6.0 - 8.3 g/dL [facility] ALT 15 10 - 35 U/L [facility] Specimen Performing Organization Address [facility] e Phone Number [facility] [address] [place] [address] * CBC/DIFF (05/27/2020 4:51 PM EDT) WBC 11.86(H) 4.00 - 10.80 K/uL [facility] RBC 4.14 3.85 - 5.15 M/uL [facility] HGB 11.4(L) 12.0 - 15.3 g/dL [facility] HCT 37.5 36.0 - 45.2 % [facility] MCV 90.6 81.5 - 97.[address] [facility] MCH 27.5 27.0 - 34.[address] [facility] MCHC 30.4(L) 32.0 - 36.0 g/dL [facility] RDW 13.2 11.5 - 15.5 % [facility] PLATELET COUNT 435(H) 140 - 400 K/uL [facility] MPV 9.7 6.6 - 11.1 fL [facility] NRBC'S 0 0 /100 WBCs [facility] NEUTS 59.8 40 - 75 % [facility] LYMPHS 26.7 18 - 42 % [facility] MONOS 10.1 1 - 11 % [facility] EOS 2.6 0 - 6 % [facility] BASOS 0.4 0 - 2 % [facility] IMMATURE GRANULOCYTE 0.4 0 - 2 % [facility] ABS. NEUTS 7.08 1.8 - 7.7 K/uL [facility] ABS. LYMPHS 3.17 1.0 - 4.8 K/uL [facility] ABS. MONOS 1.20(H) 0.0 - 1.1 K/uL [facility] ABS. EOS 0.31 0.0 - 0.7 K/uL [facility] ABS. BASOS 0.05 0.0 - 0.2 K/uL [facility] ABSOLUTE IMMATURE GRANULOCYTES 0.05 0.0 - 0.2 K/uL [facility] Specimen Performing Organization Address City/State/Zipcod e Phone Number [facility] [address] [place] [address] documented in this encounter Visit Diagnoses Diagnosis Postmenopausal status, age-related- Primary Asymptomatic postmenopausal status (age-related) (natural) Abdominal pain, generalized documented in this encounter Advance Directives Documents on File Type Date Recorded Patient Electronic Assembly 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
--- OUTSIDE RECORDS SUMMARY | 2023-06-18 03:24 | External Medical Summary | Summary of Care ---
Author Name Unknown Organization [place] [address] Care Team Providers Care Bpm Developer Name Role Phone Marcela Pinto MD Primary Care Provider [phone] Reason for Visit * Reason Comments Medication Problem Encounter Details Date Type Department Care Team Description 05/19/2020 Telephone General Internal Medicine [facility] [address] [place] [address] Marcela Pinto MD [address] [place] [address] [phone] Medication Problem Allergies Active Allergy Reactions Severity Noted Date Comments Valsartan 07/10/2010 Enalapril 05/21/2006 Escitalopram Oxalate Nausea/vomiting 10/11/2009 Nauseated Iodinated Diagnostic Agents Nausea/vomiting 05/2010 IV Contrast Lisinopril 05/21/2006 Metoprolol Tartrate 11/18/2006 Made pulse low [place] Oil-Black Currant-Vit E 07/10/2010 Verapamil 03/21/2004 Bupropion [...] 300 Each 1 01/05/2020 Active Glucose Blood ([place]aga CONTOUR TEST) STRPIndications:Typ e 2 diabetes mellitus [...] 1 02/28/2020 Active INCRUSE ELLIPTA 62.5 MCG/INH AEPBIndications: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 20 Tab 0 05/18/2020 0 Active metroNIDAZOLE (FLAGYL) 500 MG Tablet Take 1 Tab by mouth 3 times a day for 10 days. 30 Tab 0 05/18/2020 0 Active nystatin [id number] UNIT/GM ointment Apply topically to affected area 2 times a day. To affacted area for two weeks. 15 g 2 05/19/2020 Active nystatin-triamcinol one (MYCOLOG) 284398-0.1 UNIT/GM-% creamIndications:De rmatitis Apply topically to affected area 2 times a day for 14 days. To affacted area for two weeks. 30 g 1 05/18/2020 0 Discontinu ed(Formula ry/Cost) documented as of this encounter (statuses as [...] Hypoxemia 10/08/2011 10/30/2015 Genetic Sleep Disorder Research Other*[id number] 07/25/2011 05/15/2016 Diverticulitis of colon 07/25/2011 01/06/20 [...] encounter Miscellaneous Notes * Telephone Encounter - Rad Multani LPN - 05/19/2020 1:43 PM EDT Patient has been informed of below message and verbalized understanding. * Telephone Encounter - Marcela Pinto MD - 05/19/2020 1:37 PM EDT Resent new script. Please notify. Thanks. * Telephone Encounter - Rad Multani LPN - 05/19/2020 9:19 AM EDT Pt calling in to advise that nystatin-triamcinolone cream is not covered by her insurance. Medication cost $170 and pt cannot afford that. Pt is asking if provider can send her in something different that is more affordable. Please advise. documented in this encounter Plan of Treatment Upcoming Encounters Date Type Specialty Care Team Description 06/06/2020 Imaging Radiology 08/08/2020 Office Visit Internal Medicine Marcela Pinto MD [address] [facility] [place] [address] [phone] 11/23/2020 Office Visit Internal Medicine Marcela Pinto MD [address] [place] [address] [phone] Health Maintenance Due Date Last Done Comments [...] Documents on File Type Date Recorded Patient Braiding Machine Tender 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
--- OUTSIDE RECORDS SUMMARY | 2023-06-18 03:25 | External Medical Summary | Summary of Care ---
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 Phone Marcela Pinto MD Primary Care Provider [phone] Reason for Visit * Reason Comments Medication Refill Encounter Details Date Type Department Care Team Description 04/26/2020 Refill General Internal Medicine [facility] [address] [place], [place] [id number] Marcela Pinto MD [address] [place] [address] [phone] GENERAL OSTEOARTHROSIS ; HTN, goal below 140/90; Chronic constipation Allergies Active Allergy Reactions Severity Noted Date Comments Valsartan 07/10/2010 Enalapril 05/21/2006 Escitalopram Oxalate Nausea/vomiting 10/11/2009 Nauseated Iodinated Diagnostic Agents Nausea/vomiting 05/2010 IV Contrast Lisinopril 05/21/2006 Metoprolol Tartrate 11/18/2006 Made pulse low [place] Oil-Black Currant-Vit E 07/10/2010 Verapamil 03/21/2004 Bupropion Hcl 10/30/2009 Makes pt sick in the stomach documented as of this encounter (statuses as of 04/27/2020) Medications Medication Sig Dispensed Refills Start Date [...] J45.909, J44.9 225 mL 1 06/29/2019 Active doxycycline 100 MG Tablet Take 100 mg by mouth 2 times a day. 4 09/17/2019 Active zoster vac recomb adjuvanted (SHINGRIX) 50 MCG/0.5ML injectionIndication s:Need for shingles vaccine Inject 0.5 mL into a large muscle now and repeat dose in 60 to 180 days. Please fax date this was given to our office. 1 Each 1 10/19/2019 Active dilTIAZem HCl ER Beads 360 MG NS75Qypsqhpvlap:HTN , goal below 130/80 TAKE 1 CAPSULE BY MOUTH EVERY DAY 90 Cap 1 11/22/2019 Active guaiFENesin-codeine (ROBITUSSIN AC) 100-10 MG/5ML solution [...] A DAY 12 g 3 01/14/2020 Active furosemide (LASIX) 40 MG TabletIndications:E ssential hypertension with goal blood pressure less than 130/80 TAKE 2 TABLETS BY MOUTH TWICE A DAY. 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 until gone. 30 Tab 0 03/17/2020 Active Additional Information Patient not taking. Reported on 04/03/2020 1:06 PM ondansetron ODT (ZOFRAN) 8 MG TBDPIndications:David sea DISSOLVE 1 TABLET ON TONGUE EVERY 8 HOURS NEEDED FOR NAUSEA 60 Tab 5 03/21/2020 Active Additional Information Patient not taking. Reported on 04/03/2020 1:06 PM zafirlukast (ACCOLATE) 20 MG TabletIndications:A sthma with [...] mouth daily. 90 Tab 2 04/27/2020 Active KLOR-CON M20 20 MEQ TBCRIndications:HTN , goal below 140/90 TAKE 1 TABLET BY MOUTH DAILY 90 Tab 1 03/20/2018 0 Discontinu ed(Refill) dicyclomine (BENTYL) 20 MG TabletIndications:C hronic constipation TAKE 1 TABLET BY MOUTH EVERY DAY 90 Tab 2 11/01/2019 0 Discontinu ed(Refill) HYDROcodone-acetami nophen 5-325 mg per tab 5-325 MG per tabletIndications:G eneralized osteoarthritis Take 1 Tab by mouth every 6 hours as needed for Pain, Mild. 120 Tab 0 03/17/2020 0 Discontinu ed(Refill) documented as of this encounter (statuses as of 04/27/2020) Active Problems Problem Noted Date Morbid obesity [...] as of this encounter (statuses as of 04/27/2020) Resolved Problems Problem Noted Date Resolved Date [...] Hypoxemia 10/08/2011 10/30/2015 Genetic Sleep Disorder Research Other*[id number] 07/25/2011 05/15/2016 Diverticulitis of colon 07/25/2011 01/06/20 [...] as of this encounter (statuses as of 04/27/2020) Immunizations Name Administration Dates Next Due Hepatitis [...] have Coronavirus / COVID-19? No / Unsure 04/03/2020 1:03 PM EDT documented as of this encounter Miscellaneous Notes * Telephone Encounter - Marcela Pinto MD - 04/27/2020 8:11 AM EDT Signed Prescriptions: Disp Refills HYDROcodone-acetaminophen 5-325 mg per tab*120 Tab0 Sig: Take 1 Tab by mouth every 6 hours as needed for Pain, Mild.Authorizing Provider: MARCELA PINTO PotassiumChloride Annalisa ER (KLOR-CON M20) *90 Tab 1 Sig: Take 1 Tab by mouth daily.Authorizing Provider: MARCELA PINTO dicyclomine (BENTYL) 20 MG Tablet 90 Tab 2 Sig: Take 1 Tab by mouth daily.Authorizing Provider: MARCELA PINTO * Telephone Encounter - Marcela Pinto MD - 04/27/2020 8:11 AM EDT I have reviewed the patients controlled substance dispensing history in the Prescription Drug Monitoring Program in compliance with the [facility] regulations before prescribing a controlled substance. [...] Telephone Encounter - Angelina Linder LPN - 04/26/2020 12:34 PM EDT Pending Prescriptions: Disp Refills HYDROcodone-acetaminophen 5-325 mg per ta*120 Tab0 Sig: Take 1 Tab by mouth every 6 hours as needed for Pain, Mild. Potassium Chloride Annalisa ER (KLOR-CON M20)*90 Tab 1 Sig: Take 1 Tab by mouth daily. dicyclomine (BENTYL) 20 MG Tablet 90 Tab 2 Sig: Take 1 Tab by mouth daily. 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 Allergic rhinitis J30.9 Nocturnal hypoxia G47.34 Sleep apnea, obstructive G47.33 ACEI/ARB contraindicated [id number] HTN, goal below 140/90 I10 Hyperlipidemia with target LDL less than 100 E78.5 Controlled substance agreement signed Z79.899 Type 2 diabetes mellitus with hemoglobin A1c goal of less than 7.5% ([facility]) E11.9 Hypercalcemia E83.52 Elevated plasma metanephrines R79.89 Irritable bowel syndrome with constipation K58.1 Ischemic colitis ([facility]) K55.9 HECTOR (generalized anxiety disorder) F41.1 COPD, group B, by GOLD 2017 classification ([facility]) J44.9 Morbid obesity with BMI of 40.0-44.9, adult ([facility]) E66.01, Z68.41 Gastro-esophageal reflux disease without esophagitis K21.9 Labs: CREATININE-OUTSIDE LAB(MG/DL) Jessica Dt/Tm Resulted Value Status 03/10/20 03/10/20 1.15* FINAL POTASSIUM-OUTSIDE LAB(MMOL) Jessica Dt/Tm Resulted Value Status 03/10/20 03/10/20 3.4* FINAL TSH - OUTSIDE LAB(MCIU/ML) Jessica Dt/Tm Resulted Value Status 03/10/20 03/10/20 0.443 FINAL LDL (CALCULATED)-OUTSIDE LAB(MG/DL) Jessica Dt/Tm Resulted Value Status 03/10/20 03/10/20 88.20 FINAL LDL (DIRECT MEASURE)-OUTSIDE LAB(MG/DL) Jessica Dt/Tm Resulted Value Status 03/10/20 03/10/20 86 FINAL ALT(U/L) Jessica Dt/Tm Resulted Value Status 07/09/19 1:48P 07/09/19 13 FINAL Hemoglobin AIC Results: HEMOGLOBIN, [id number] LAB(%) Jessica Dt/Tm Resulted Value Status 03/10/20 03/10/20 7.0* FINAL 02/02/20 02/03/20 7.3* FINAL HEMOGLOBIN, A1C(%) Jessica Dt/Tm Resulted Value Status 08/26/19 2:55P 08/26/19 6.6* FINAL documented in this encounter Plan of Treatment Upcoming Encounters Date Type Specialty Care Team Description 05/06/2020 Pandemic Screening Ancillary Doran, Pre Surgical Covid Testing Connie [address] [place] [address] 05/08/2020 Procedure Only Endoscopy Judson Lloyd MD [address] [place] [address] 05/08/2020 Procedure Only Endoscopy Judson Lloyd MD [address] [place], [place] [id number] 06/06/2020 Imaging Radiology 08/08/2020 Office Visit Internal Medicine Marcela Pinto MD [address] [place] [address] [phone] Health Maintenance Due Date Last Done Comments [...] history exists COLONOSCOPY-EVERY 3 YRS AGES 18-100 02/28/2021 02/28/2018, 06/05/2017, 05/29/2016, Additional history exists DTaP,Tdap,and Td Vaccines (2 - Td) 06/04/2028 06/04/2018, 02/28/2009 Pneumococcal Vaccine: 65+ Years Completed 03/28/2015, 05/21/2006 MENINGOCOCCAL (MENACTRA/MENVEO) Aged Out No longer eligible based on patient's age to complete this topic documented as of this encounter Implants Not on filedocumented as of this encounter Visit Diagnoses Diagnosis GENERAL OSTEOARTHROSIS Generalized osteoarthrosis, unspecified site HTN, goal below 140/90 Unspecified essential hypertension Chronic constipation Unspecified constipation documented in this encounter Advance Directives Documents on File Type Date Recorded 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
--- OUTSIDE RECORDS SUMMARY | 2023-06-18 03:25 | External Medical Summary ---
Author Name Unknown Address [address] [facility] [place] [address] Phone Organization K09:[facility] [address] [facility] [place] [address] Laboratory Report Ordering Provider Test Date Status JOSE A JOHNSON 05/18/2020 13:13:00 Final Observation Date Value Abnormality Reference (Units ) Status WBC, Total 05/18/2020 13:33 12.68 Above high normal 4.00 -10.80 (K/uL) Final RBC 05/18/2020 13:33 4.12 3.85-5.15 (M/ uL) Final Hemoglobin 05/18/2020 13:33 11.7 Below low normal 12.0- 15.3 (g/dL) Final HCT 05/18/2020 13:33 37.3 36.0-45.2 (%) Final MCV 05/18/2020 13:33 90.5 81.5-97.5 (fL ) Final MCH 05/18/2020 13:33 28.4 27.0-34.0 (pg ) Final MCHC 05/18/2020 13:33 31.4 Below low normal 32.0-3 6.0 (g/dL) Final RDW 05/18/2020 13:33 13.9 11.5-15.5 (%) Final Platelets 05/18/2020 13:33 433 Above high normal 140-4 00 (K/uL) Final MPV 05/18/2020 13:33 9.2 6.6-11.1 (fL) Final Segs 05/18/2020 13:33 59.5 40-75 (%) Fin al Lymphs % 05/18/2020 13:33 27.7 18-42 (%) Fin al Monos 05/18/2020 13:33 10.1 1-11 (%) Fin al Eosinophils 05/18/2020 13:33 2.5 0-6 (%) F inal Basos 05/18/2020 13:33 0.2 0-2 (%) Fin al Neutrophils Bld 05/18/2020 13:33 7.55 1.8-7.7 (K/uL) Final Lymphs, absolute 05/18/2020 13:33 3.51 1.0-4. 8 (K/uL) Final Monos, Abs 05/18/2020 13:33 1.28 Above high normal 0.0- 1.1 (K/uL) Final Eos, Abs 05/18/2020 13:33 0.32 0.0-0.7 (K/uL ) Final Basos, Abs 05/18/2020 13:33 0.02 0.0-0.2 (K/u L) Final Performing Location [facility] [address] [place] [address]
--- OUTSIDE RECORDS SUMMARY | 2023-06-18 03:25 | External Medical Summary | Summary of Care ---
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 Phone Marcela Pinto MD Primary Care Provider [phone] Encounter Details Date Type Department Care Team Description 05/08/2020 Scan Encounter Unspecified Department <No scans attached> Allergies Active Allergy Reactions Severity Noted Date Comments Valsartan 07/10/2010 Enalapril 05/21/2006 Escitalopram Oxalate Nausea/vomiting 10/11/2009 Nauseated Iodinated Diagnostic Agents Nausea/vomiting 05/2010 IV Contrast Lisinopril 05/21/2006 Metoprolol Tartrate 11/18/2006 Made pulse low [place] Oil-Black Currant-Vit E 07/10/2010 Verapamil 03/21/2004 Bupropion Hcl 10/30/2009 Makes pt sick in the stomach documented as of this encounter (statuses as of 05/09/2020) Medications Medication Sig Dispensed Refills Start Date [...] Active dilTIAZem HCl ER Beads 360 MG AY50Sbetnszjsry:HTN, goal below 130/80 TAKE 1 CAPSULE BY [...] 300 Each 1 01/05/2020 Active Glucose Blood (CellPly CONTOUR TEST) STRPIndications:Type 2 diabetes mellitus with hemoglobin A1c goal of less than 7.0% ([facility]) USE TO TEST BLOOD SUGAR 3 TIMES A DAY FOR DIAGNOSIS CODE OF E11.9 300 Strip 1 01/05/2020 Active Blood Glucose Monitoring Suppl (CONTOUR MONITOR) w/Device KIT USE TO TEST BLOOD SUGAR 3 TIMES A DAY FOR DIAGNOSIS CODE OF E11.9 1 Kit 0 01/05/2020 Active COMBIVENT RESPIMAT 20-100 MCG/ACT InhalerIndications:A sthma with severity to be determined,COPD, moderate ([facility]) TAKE 1 PUFF BY MOUTH 4 TIMES A DAY 12 g 3 01/14/2020 Active furosemide (LASIX) 40 MG TabletIndications:Es sential hypertension with goal blood pressure less than 130/80 TAKE 2 TABLETS BY MOUTH TWICE A DAY. TAKE BEFORE A MEAL 120 Tab 2 02/15/2020 Active atorvaSTATin (LIPITOR) 40 MG TabletIndications:Hy perlipidemia with target LDL less than 100 TAKE 1 TABLET BY MOUTH EVERY DAY 90 Tab 1 02/28/2020 Active INCRUSE ELLIPTA 62.5 MCG/INH AEPBIndications:COPD , group B, by GOLD 2017 classification ([facility]) INHALE 1 PUFF BY MOUTH EVERY DAY 30 Each 3 03/09/2020 Active omeprazole (PRILOSEC) 20 MG CPDRIndications:Isch emic colitis ([facility]) TAKE 1 CAPSULE BY MOUTH TWICE A DAY 180 Cap 1 03/17/2020 Active metroNIDAZOLE (FLAGYL) 500 MG TabletIndications:Di verticulitis of colon Take 1 Tab by mouth 3 times a day. until gone. 30 Tab 0 03/17/2020 Active Additional Information Patient not taking. Reported on 04/03/2020 1:06 PM ondansetron ODT (ZOFRAN) 8 MG TBDPIndications:Naus ea DISSOLVE 1 TABLET ON TONGUE EVERY 8 HOURS NEEDED FOR NAUSEA 60 Tab 5 03/21/2020 Active Additional Information Patient not taking. Reported on 04/03/2020 1:06 PM zafirlukast (ACCOLATE) 20 MG TabletIndications:As thma with [...] mouth daily. 90 Tab 2 04/27/2020 Active documented as of this encounter (statuses as of 05/09/2020) Active Problems Problem Noted Date Morbid obesity [...] as of this encounter (statuses as of 05/09/2020) Resolved Problems Problem Noted Date Resolved Date [...] Hypoxemia 10/08/2011 10/30/2015 Genetic Sleep Disorder Research Other*[id number] 07/25/2011 05/15/2016 Diverticulitis of colon 07/25/2011 01/06/20 [...] as of this encounter (statuses as of 05/09/2020) Immunizations Name Administration Dates Next Due Hepatitis [...] have Coronavirus / COVID-19? Unable to assess 05/08/2020 7:40 AM EDT documented as of this encounter Plan of Treatment Upcoming Encounters Date Type Specialty Care Team Description 06/06/2020 Imaging Radiology 08/08/2020 Office Visit Internal Medicine Marcela Pinto MD [address] [place] [address] [phone] Health Maintenance Due Date Last Done Comments [...] on File Type Date Recorded Patient Clinical Rn 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
--- OUTSIDE RECORDS SUMMARY | 2023-06-18 03:25 | External Medical Summary | Summary of Care ---
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 Role Phone Marcela Pinto MD Primary Care Provider [phone] Reason for Visit * Reason Comments Medication Refill Advice Encounter Details Date Type Department Care Team Description 03/17/2020 Refill General Internal Medicine [facility] [address] [place], [place] [id number] Marcela Pinto MD [address] [place] [address] [phone] GENERAL OSTEOARTHROSIS ; Diverticulitis of colon Allergies Active Allergy Reactions Severity Noted Date Comments Valsartan 07/10/2010 Enalapril 05/21/2006 Escitalopram Oxalate Nausea/vomiting 10/11/2009 Nauseated Iodinated Diagnostic Agents Nausea/vomiting 05/2010 IV Contrast Lisinopril 05/21/2006 Metoprolol Tartrate 11/18/2006 Made pulse low [place] Oil-Black Currant-Vit E 07/10/2010 Verapamil 03/21/2004 Bupropion Hcl 10/30/2009 Makes pt sick in the stomach documented as of this encounter (statuses as of 04/10/2020) Medications Medication Sig Dispensed Refills Start Date [...] DAYS NEEDED FOR CONSTIPATION 0 8 Active KLOR-CON M20 20 MEQ TBCRIndications:HT N, goal below 140/90 TAKE 1 TABLET BY MOUTH DAILY 90 Tab 1 8 Active Nebulizers (NEBULIZER COMPRESSOR) [facility] [place] via nebulizer. Use as directed. Please [...] J45.909, J44.9 225 mL 1 9 Active doxycycline 100 MG Tablet Take 100 mg by mouth 2 times a day. 4 9 Active zoster vac recomb adjuvanted (SHINGRIX) 50 MCG/0.5ML injectionIndicatio ns:Need for shingles vaccine Inject 0.5 mL into a large muscle now and repeat dose in 60 to 180 days. Please fax date this was given to our office. 1 Each 1 0 Active dicyclomine (BENTYL) 20 MG TabletIndications: Chronic constipation TAKE 1 TABLET BY MOUTH EVERY DAY 90 Tab 2 0 Active dilTIAZem HCl ER Beads 360 MG OJ36Enftkskfhjx:HT N, goal below 130/80 TAKE 1 CAPSULE BY MOUTH EVERY DAY 90 Cap 1 0 Active guaiFENesin-codein e (ROBITUSSIN AC) 100-10 MG/5ML solution Take 10 mL by mouth every 4 hours as needed. 0 0 Active Albuterol Sulfate (VENTOLIN HFA) 108 (90 Base) MCG/ACT AERS Inhale 2 Puffs by mouth 2 times a day. 0 0 Active predniSONE (DELTASONE) 10 MG Tablet Take 10 mg by mouth daily. Takes 5 tabs for 2 days, 4 tabs for 2 days, 3 tabs for 2 days, 2 tabs for 2 days and 1 tab for 2 days. Started this regimen on 12/29/2019 so she took 5 tabs today and yesterday (as of today, 12/30/2019). 0 Active Lancets MISCIndications:Ty pe 2 diabetes mellitus with hemoglobin A1c goal of less than 7.0% (HCC) Use as directed. USE TO TEST BLOOD SUGAR 3 TIMES A DAY FOR DIAGNOSIS CODE OF E11.9 300 Each 1 0 Active Glucose Blood (YEIMY CONTOUR TEST) STRPIndications:Ty [...] 0 0 Active COMBIVENT RESPIMAT 20-100 MCG/ACT InhalerIndications :Asthma with severity to be determined,COPD, moderate (HCC) TAKE 1 PUFF BY MOUTH 4 TIMES A DAY 12 g 3 0 Active furosemide (LASIX) 40 MG TabletIndications: Essential hypertension with goal blood pressure less than 130/80 TAKE 2 TABLETS BY MOUTH TWICE A DAY. TAKE BEFORE A MEAL 120 Tab 2 0 Active atorvaSTATin (LIPITOR) 40 MG TabletIndications: Hyperlipidemia with target LDL less than 100 TAKE 1 TABLET BY MOUTH EVERY DAY 90 Tab 1 0 Active INCRUSE ELLIPTA 62.5 MCG/INH AEPBIndications:CO PD, group B, by GOLD 2017 classification ([facility]) INHALE 1 PUFF BY MOUTH EVERY DAY 30 Each 3 0 Active omeprazole (PRILOSEC) 20 MG CPDRIndications:Is chemic colitis ([facility]) TAKE 1 CAPSULE BY MOUTH TWICE A DAY 180 Cap 1 0 Active HYDROcodone-acetam inophen 5-325 mg per tab 5-325 MG per tabletIndications: Generalized osteoarthritis Take 1 Tab by mouth every 6 hours as needed for Pain, Mild. 120 Tab 0 0 Active metroNIDAZOLE (FLAGYL) 500 MG TabletIndications: Diverticulitis of colon Take 1 Tab by mouth 3 times a day. until gone. 30 Tab 0 0 Active Additional Information Patient not taking. Reported on 04/03/2020 1:06 PM ondansetron ODT (ZOFRAN) 8 MG TBDPIndications:Na usea DISSOLVE 1 TABLET ON TONGUE EVERY 8 HOURS NEEDED FOR NAUSEA 60 Tab 5 9 020 Discontinued fluticasone (FLONASE) 50 MCG/ACT nasal sprayIndications:C hronic maxillary sinusitis,Otalgia of both ears Administer 2 Sprays into each nostril daily. 1 Bottle 11 9 020 Discontinued(Dilip palacios preference/disc ontinuation) zafirlukast (ACCOLATE) 20 MG TabletIndications: Asthma with severity to be determined TAKE 1 TABLET BY MOUTH EVERY DAY 90 Tab 1 9 020 Discontinued HYDROcodone-acetam inophen 5-325 mg per tab 5-325 MG per tabletIndications: Generalized osteoarthritis Take 1 Tab by mouth every 6 hours as needed for Pain, Mild. 120 Tab 0 0 020 Discontinued(Re fill) ciprofloxacin (CIPRO) 500 MG Tablet Take 1 Tab by mouth every 12 hours for 10 days. 20 Tab 0 0 020 documented as of this encounter (statuses as of 04/10/2020) Active Problems Problem Noted Date Morbid obesity [...] as of this encounter (statuses as of 04/10/2020) Resolved Problems Problem Noted Date Resolved Date [...] Hypoxemia 10/08/2011 10/30/2015 Genetic Sleep Disorder Research Other*[id number] 07/25/2011 05/15/2016 Diverticulitis of colon 07/25/2011 01/06/20 [...] as of this encounter (statuses as of 04/10/2020) Immunizations Name Administration Dates Next Due Hepatitis [...] Telephone Encounter - Marcela Pinto MD - 03/17/2020 2:33 PM EDT Signed Prescriptions: Disp Refills HYDROcodone-acetaminophen 5-325 mg per tab*120 Tab0 Sig: Take 1 Tab by mouth every 6 hours as needed for Pain, Mild. Authorizing Provider: MARCELA PINTO metroNIDAZOLE (FLAGYL) 500 MG Tablet 30 Tab 0 Sig: Take 1 Tab by mouth 3 times a day. until gone. Authorizing Provider: MARCELA PINTO ciprofloxacin (CIPRO) 500 MG T ablet 20 Tab 0 Sig: Take 1 Tab by mouth every 12 hours for 10 days. Authorizing Provider: MARCELA PINTO * Telephone Encounter - Marcela Pinto MD - 03/17/2020 2:32 PM EDT There is an order for Cipro and Flagyl which she has requested to use only as needed for mild to moderate bout of diverticulitis. * Telephone Encounter - Ruben Chantel MonteroNICOL - 03/17/2020 9:53 AM EDT Pt calling she is still having a little pain and notice a bit of blood in stool every once in whilesince being dx with diverticulitis on 03/01. Pt inquiring if she can get refills on the flagyl and cipro to make sure she is completely better. Pt also needs refill on pain medication Orders pending. Please advise Pending Prescriptions: Disp Refills HYDROcodone-acetaminophen 5-325 mg per ta*120 Tab0 Sig: Take 1 Tab by mouth every 6 hours as needed for Pain, Mild. ciprofloxacin (CIPRO) 500 MG Tablet 20 Tab 0 Sig: Take 1 Tab by mouth every 12 hours. metroNIDAZOLE (FLAGYL) 500 MG Tablet 30 Tab 0 Sig: Take 1 Tab by mouth 3 times a day. until gone. 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 Allergic rhinitis J30.9 Nocturnal hypoxia G47.34 Sleep apnea, obstructive G47.33 ACEI/ARB contraindicated [id number] HTN, goal below 140/90 I10 Hyperlipidemia with target LDL less than 100 E78.5 Controlled substance agreement signed Z79.899 Type 2 diabetes mellitus with hemoglobin A1c goal of less than 7.5% (HCC) E11.9 Hypercalcemia E83.52 Elevated plasma metanephrines R79.89 Irritable bowel syndrome with constipation K58.1 Ischemic colitis ([facility]) K55.9 HECTOR (generalized anxiety disorder) [...] 07/09/19 13 FINAL Hemoglobin AIC Results: HEMOGLOBIN, [id number] LAB(%) Jessica Dt/Tm Resulted Value Status 03/10/20 03/10/20 7.0* FINAL 02/02/20 02/03/20 7.3* FINAL HEMOGLOBIN, A1C(%) Jessica Dt/Tm Resulted Value Status 08/26/19 2:55P 08/26/19 6.6* FINAL documented in this encounter Plan of Treatment Upcoming Encounters Date Type Specialty Care Team Description 05/06/2020 Pandemic Screening Ancillary Doran, Pre Surgical Covid Testing Connie [address] [place] [address] 05/08/2020 Procedure Only Endoscopy Judson Lloyd MD [address] [place] [address] [phone] 05/08/2020 Procedure Only Endoscopy Judson Lloyd MD [address] [place] [address] [phone] 06/06/2020 Imaging Radiology 08/08/2020 Office Visit Internal Medicine Marcela Pinto MD [address] [facility] [place] [address] [phone] Health Maintenance Due Date Last Done Comments [...] 05/21/2006 Influenza Vaccine (FLU shot) Completed , 06/16/2018, 07/30/2017, Additional history exists MENINGOCOCCAL (MENACTRA/MENVEO) Aged Out No longer eligible based on patient's age to complete this topic documented as of this encounter Implants Not on filedocumented as of this encounter Visit Diagnoses Diagnosis GENERAL OSTEOARTHROSIS Generalized osteoarthrosis, unspecified site Diverticulitis of colon Diverticulitis of colon (without mention of hemorrhage) documented in this encounter Advance Directives Documents on File Type Date Recorded 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
--- OUTSIDE RECORDS SUMMARY | 2023-06-18 03:25 | External Medical Summary | Summary of Care ---
Author Name Unknown Organization [place] [address] Care Team Providers Care Respite Care Provider Name Role Phone Marcela Pinto MD Primary Care Provider [phone] Reason for Visit * Reason Comments Acute Encounter Details Date Type Department Care Team Description 05/18/2020 Office Visit General Internal Medicine [facility] [address] [facility] [address] [employer], [place] [id number] Marcela Pinto MD [address] [place] [address] [phone] Abdominal pain, left lower quadrant*; Risk and functional assessment; Dermatitis; Rectal bleeding Allergies Active Allergy Reactions Severity Noted Date Comments Valsartan 07/10/2010 Enalapril 05/21/2006 Escitalopram Oxalate Nausea/vomiting 10/11/2009 Nauseated Iodinated Diagnostic Agents Nausea/vomiting 05/2010 IV Contrast Lisinopril 05/21/2006 Metoprolol Tartrate 11/18/2006 Made pulse low [place] Oil-Black Currant-Vit E 07/10/2010 Verapamil 03/21/2004 Bupropion [...] 300 Each 1 0 Active Glucose Blood ([employer] CONTOUR TEST) STRPIndications:Ty pe 2 diabetes mellitus with hemoglobin A1c goal of less than 7.0% ([facility]) USE TO TEST BLOOD SUGAR 3 TIMES A DAY FOR DIAGNOSIS CODE OF E11.9 300 Strip 1 0 Active Blood Glucose Monitoring Suppl (CONTOUR MONITOR) w/Device KIT USE TO TEST BLOOD SUGAR 3 TIMES A DAY FOR DIAGNOSIS CODE OF E11.9 1 Kit 0 0 Active COMBIVENT RESPIMAT 20-100 MCG/ACT InhalerIndications :Asthma with severity to be determined,COPD, moderate ([facility]) TAKE 1 PUFF BY MOUTH 4 TIMES A DAY 12 g 3 0 Active atorvaSTATin (LIPITOR) 40 MG TabletIndications: Hyperlipidemia with target LDL less than 100 TAKE 1 TABLET BY MOUTH EVERY DAY 90 Tab 1 0 Active INCRUSE ELLIPTA 62.5 MCG/INH AEPBIndications:CO PD, group B, by GOLD 2017 classification ([facility]) INHALE 1 PUFF BY MOUTH EVERY DAY 30 Each 3 0 Active omeprazole (PRILOSEC) 20 MG CPDRIndications:Is chemic colitis ([facility]) TAKE 1 CAPSULE BY MOUTH TWICE A DAY 180 Cap 1 0 Active ondansetron ODT (ZOFRAN) 8 MG TBDPIndications:Na usea DISSOLVE 1 TABLET ON TONGUE EVERY 8 HOURS NEEDED FOR NAUSEA 60 Tab 5 0 Active zafirlukast (ACCOLATE) 20 MG TabletIndications: Asthma with severity to be determined TAKE 1 TABLET BY MOUTH EVERY DAY 90 Tab 1 0 Active HYDROcodone-acetam inophen 5-325 mg per tab 5-325 MG per tabletIndications: Generalized osteoarthritis Take 1 Tab by mouth every 6 hours as needed for Pain, Mild. 120 Tab 0 0 Active Potassium Chloride Annalisa ER (KLOR-CON M20) 20 MEQ TBCRIndications:HT N, goal below 140/90 Take 1 Tab by mouth daily. 90 Tab 1 0 Active dicyclomine (BENTYL) 20 MG TabletIndications: Chronic constipation Take 1 Tab by mouth daily. 90 Tab 2 0 Active furosemide (LASIX) 40 MG TabletIndications: [...] PM dilTIAZem HCl ER Beads 360 MG CG35Azwiillyrjp:HT N, goal below 130/80 TAKE 1 CAPSULE BY MOUTH EVERY DAY 90 Cap 1 0 Active nystatin-triamcino lone (MYCOLOG) 823709-1.1 UNIT/GM-% creamIndications:D ermatitis Apply topically to affected area 2 times a day for 14 days. To affacted area for two weeks. 30 g 1 0 020 Active ciprofloxacin (CIPRO) 500 MG TabletIndications: Abdominal pain, left lower quadrant Take 1 Tab by mouth every 12 hours for 10 days. 20 Tab 0 0 020 Active metroNIDAZOLE (FLAGYL) 250 MG TabletIndications: Abdominal pain, left lower quadrant Take 2 Tabs by mouth 3 times a day for 10 days. 30 Tab 0 0 Active doxycycline 100 MG Tablet Take 100 mg by mouth 2 times a day. 4 9 020 Discontinued metroNIDAZOLE (FLAGYL) 500 MG TabletIndications: Diverticulitis of colon Take 1 Tab by mouth 3 times a day. until gone. 30 Tab 0 0 020 Discontinued(Ca dication List Clean Up) documented as of [...] Hypoxemia 10/08/2011 10/30/2015 Genetic Sleep Disorder Research Other*[id number] 07/25/2011 05/15/2016 Diverticulitis of colon 07/25/2011 01/06/20 [...] Sign Reading Time Taken Comments Blood Pressure 106/64 05/18/2020 12:45 PM EDT Pulse 76 05/18/2020 12:45 PM EDT Temperature 35.9 C (96.7 F) 05/18/2020 1 2:45 PM EDT Respiratory Rate 13 05/18/2020 12:4 5 PM EDT Oxygen Saturation - - Inhaled Oxygen Concentration - - Weight 107.1 kg (236 lb 3.2 oz) 020 12:45 PM EDT Height 165.1 cm (5' 5") 05/18/2020 12:4 5 PM EDT Body Mass Index 39.31 05/18/2020 12:45 PM EDT documented in this encounter Patient Instructions * Patient Instructions* Renetta Gu, ETL BI DEVELOPER - 05/18/2020 12:37 PM EDT Patient Instructions - Fall Prevention [...] 10 times. Repeat this throughout the day. [employer] Patient Education Copyright 2009 - 2010 Joceline [...] (TEDs)if you have edema Renetta Gu LPN 05/18/2020 Kegel Exercises Kegel exercises dont require special [...] please feel free to contact our office. BMI (Body Mass Index) is the number obtained by dividing a person's weight in kilograms by his or her height in meters squared. BMI is used in determining obesity. BMI is not used to determine a person's actual percentage of body fat, but it is a good tool to heating and cooling technician weight in terms of what is healthy and unhealthy. It is used to identify adults at increased risk for developing weight related medical problems. Estimated body mass index is 39.31 kg/m as calculated from the following: Height as of this encounter: 1.651 m (5' 5"). Weight as of this encounter: 107.1 kg (236 lb 3.2 oz). Obesity - BMI 35 kg/m2 to [...] message program is also available. Go to [employer] and seethe message under '[employer] News' for more information and enrollment. Patient [...] permitted. Keep Honest, Accurate Food logs: * [email or web address] * www.[email or web address] * If you bite it - write [...] Progress Notes * Marcela Pinto MD - 05/18/2020 1:04 PM EDT HPI: Nina Harrington is a 79 year old female who presents with: Chief Complaint Patient presents with Acute Patient is here for the acute visit. Patient complains of: Rash in the left groin area for last few weeks. Often on blood when she wipes after BM. Had upper endoscopy and colonoscopy few weeks back and showed no acute changes. Has minimal left lower abdominal pain. Constipation+ Pt denies: Denies any chestpain/sob/palpitation/swealling in the legs. Nausea, vomitting. Diarrhoea. Did try any OTC meds: No Have you had similar symptoms in past: Yes Any ER/Urgent care visit: NO On scale of 1 to 10 how bad is the severity: 3-4 Any need for med refills: No Any labs needed: yes Need any Referral: No Due for any HM? Shingrix, Dexa How does patient feel emotionally? 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) E11.9 Hypercalcemia E83.52 Elevated plasma metanephrines R79.89 Irritable bowel syndrome with constipation K58.1 Ischemic colitis ([facility]) K55.9 HECTOR (generalized anxiety disorder) F41.1 COPD, group B, by GOLD 2017 classification ([facility]) J44.9 Morbid obesity with BMI of 40.0-44.9, adult ([facility]) E66.01, Z68.41 Gastro-esophageal reflux disease without esophagitis K21.9 Current Outpatient Medications Medication Sig Dispense Refill ciprofloxacin (CIPRO) 500 MG Tablet Take 1 Tab by mouth every 12 hours for 10 days. 20 Tab 0 metroNIDAZOLE (FLAGYL) 250 MG Tablet Take 2 Tabs by mouth 3 times a day for 10 days. 30 Tab 0 nystatin-triamcinolone (MYCOLOG) 638402-5.1 UNIT/GM-% cream Apply topically to affected area 2 times a day for 14 days. To affacted area for two weeks. 30 g 1 dilTIAZem HCl ER Beads 360 MG CP24 [...] 1000 UNITS PO TABS one tablet daily Blood Glucose Monitoring Suppl (CONTOUR MONITOR) w/Device KIT USE TO TEST BLOOD SUGAR 3 TIMES A DAYFOR DIAGNOSIS CODE OF E11.9 1 Kit 0 Glucose Blood (YEIMY CONTOUR TEST) STRP USE TO TEST BLOOD SUGAR 3 TIMES A DAY FOR DIAGNOSIS CODE OFE11.9 300 Strip 1 [facility] Use as directed. USE TO TEST BLOOD SUGAR 3 TIMES A DAY FOR DIAGNOSIS CODE OF E11.9 300Each 1 predniSONE (DELTASONE) 10 MG Tablet Take 10 [...] to use with it. 1 Each 1 The patient's medication list was reviewed and updated as needed. 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 OBJECTIVE: BP 106/64 | Pulse 76 | Temp (Src) 96.7 (Tympanic) | Resp 13 | Ht 5' 5" (1.651m) | Wt 236 lbs 3.2 oz(107.140kg) | BMI 39.31 kg/m | BSA 2.22 m PHYSICAL EXAM: HEENT: PERRLA, EOMI, anicteric sclera, b/l tympanic membrane is pearly white, no erythema, no pharyngeal erythema, no lymphadenopathy, neck supple CVS: RRR, no murmurs, rubs or gallops, s1 s 2normal. RESP: clear to auscultation, no wheezing or crackles ABD: soft, NT/ND EXT: no edema, cyanosis, peripheral pulses palpable bilaterally Skin Rash in left groin area. Gait normal. Mood stable No focal weakness ASSESSMENT AND PLAN: Abdominal pain, left lower quadrant (Primary) - CBC/DIFF; Future; Expected date: 05/18/2020 - COMPR METAB PANEL; Future; Expected date: 05/18/2020 - If needed then only start- ciprofloxacin (CIPRO) 500 MG Tablet; Take 1 Tab by mouth every 12 hours for 10 days. - metroNIDAZOLE (FLAGYL) 250 MG Tablet; Take 2 Tabs by mouth 3 times a day for 10 days. Risk and functional assessment - PAT SCRN FOR FALL RISK - PRES OR ABS OF URIN INCONT - URIN INCONT PLAN OF CARE DOC Dermatitis - Start nystatin-triamcinolone (MYCOLOG) 149114-2.1 UNIT/GM-% cream; Apply topically to affected area 2 times a day for 14 days. To affacted area for two weeks. Rectal bleeding - FERRITIN; Future; Expected date: 05/18/2020 Follow Up: Return in about 6 months (around 11/18/2020). Marcela Pinto MD Patient counseling on weight management given. * Renetta Gu LPN - 05/18/2020 12:37 PM EDT Urinary Incontinence Plan of Care [...] (TEDs)if you have edema Renetta Gu LPN 05/18/2020 documented in this encounter Nursing Notes * Renetta Gu LPN - 05/18/2020 12:41 PM EDT Rectal bleeding has had colonoscopy. Nothing was found. Slight belly pain. Denies nausea. Denies fever. Rash in left groin. documented in this encounter Plan of Treatment Upcoming Encounters Date Type Specialty Care Team Description 06/06/2020 Imaging Radiology 08/08/2020 Office Visit Internal Medicine Marcela Pinto MD [address] [facility] [place] [address] [phone] 11/23/2020 Office Visit Internal Medicine Marcela Pinto MD [address] [facility] [place], [place] [address] [phone] Pending Results Name Type Priority Associated Diagnoses Date /Time COMPR METAB PANEL Lab Routine Abdominal pain, left lower quadrant 05/18/2020 1:18 PM EDT FERRITIN Lab Routine Rectal bleeding 05/18/2020 1:18 PM EDT Scheduled Orders Name Type Priority Associated Diagnoses Orde r Schedule COMPR METAB PANEL Lab Routine Abdominal pain, left lower quadrant Expected: 05/18/2020 (Approximate), Expires: 05/18/2021 FERRITIN Lab Routine Rectal bleeding Expected: 05/18/2020 (Approximate), Expires: 05/18/2021 Health Maintenance Due Date Last Done Comments [...] filedocumented as of this encounter Results * CBC/DIFF (05/18/2020 1:13 PM EDT) WBC 12.68(H) 4.00 - 10.80 K/uL [place] RBC 4.12 3.85 - 5.15 M/uL [place] HGB 11.7(L) 12.0 - 15.3 g/dL [place] HCT 37.3 36.0 - 45.2 % [place] MCV 90.5 81.5 - 97.5 fL [place] MCH 28.4 27.0 - 34.0 pg [place] MCHC 31.4(L) 32.0 - 36.0 g/dL [place] RDW 13.9 11.5 - 15.5 % [place] PLATELET COUNT 433(H) 140 - 400 K/uL [place] MPV 9.2 6.6 - 11.1 fL [facility] NEUTS 59.5 40 - 75 % [facility] LYMPHS 27.7 18 - 42 % [facility] MONOS 10.1 1 - 11 % [facility] EOS 2.5 0 - 6 % [facility] BASOS 0.2 0 - 2 % [facility] COLLE[facility] ABS. NEUTS 7.55 1.8 - 7.7 K/uL [facility] ABS. LYMPHS 3.51 1.0 - 4.8 K/uL [facility] COLLE[facility] ABS. MONOS 1.28(H) 0.0 - 1.1 K/uL [facility] ABS. EOS 0.32 0.0 - 0.7 K/uL [facility] COLLEGE ABS. BASOS 0.02 0.0 - 0.2 K/uL [facility] COLLEGE Specimen Performing Organization Address City/State/Zipcod e Phone Number [facility] [address] [place] [address] documented in this encounter Visit Diagnoses Diagnosis Abdominal pain, left lower quadrant- Primary Risk and functional assessment Screening for unspecified condition Dermatitis Contact dermatitis and other eczema, due to unspecified cause Rectal bleeding Hemorrhage of rectum and anus documented in this encounter Advance Directives Documents on File Type Date Recorded Patient Payroll Benefits Administrator 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
--- OUTSIDE RECORDS SUMMARY | 2023-06-18 03:25 | External Medical Summary | Summary of Care ---
Author Name Unknown Organization [place] [address] Care Team Providers Care Dent Remover Name Role Phone Marcela Pinto MD Primary Care Provider [phone] Encounter Details Date Type Department Care Team Description 04/24/2020 Scan Encounter Unspecified Department <No scans attached> Allergies Active Allergy Reactions Severity Noted Date Comments Valsartan 07/10/2010 Enalapril 05/21/2006 Escitalopram Oxalate Nausea/vomiting 10/11/2009 Nauseated Iodinated Diagnostic Agents Nausea/vomiting 05/2010 IV Contrast Lisinopril 05/21/2006 Metoprolol Tartrate 11/18/2006 Made pulse low [place] Oil-Black Currant-Vit E 07/10/2010 Verapamil 03/21/2004 Bupropion Hcl 10/30/2009 Makes pt sick in the stomach documented as of this encounter (statuses as of 04/25/2020) Medications Medication Sig Dispensed Refills Start Date [...] DAYS NEEDED FOR CONSTIPATION 0 11/26/2017 Active KLOR-CON M20 20 MEQ TBCRIndications:HTN, goal below 140/90 TAKE 1 TABLET BY MOUTH DAILY 90 Tab 1 03/20/2018 Active Nebulizers (NEBULIZER COMPRESSOR) MISC Inhale via [...] our office. 1 Each 1 10/19/2019 Active dicyclomine (BENTYL) 20 MG TabletIndications:Ch ronic constipation TAKE 1 TABLET BY MOUTH EVERY DAY 90 Tab 2 11/01/2019 Active dilTIAZem HCl ER Beads 360 MG [id number]:HTN, goal below 130/80 TAKE 1 CAPSULE BY [...] 300 Each 1 01/05/2020 Active Glucose Blood ([employer] CONTOUR TEST) STRPIndications:Type 2 diabetes mellitus with [...] , group B, by GOLD 2017 classification ([facility]) INHALE 1 PUFF BY MOUTH EVERY DAY 30 Each 3 03/09/2020 Active omeprazole (PRILOSEC) 20 MG CPDRIndications:Isch emic colitis (HCC) TAKE 1 CAPSULE BY MOUTH TWICE A DAY 180 Cap 1 03/17/2020 Active HYDROcodone-acetamin ophen 5-325 mg per tab 5-325 MG per tabletIndications:Ge neralized osteoarthritis Take 1 Tab by mouth every 6 hours as needed for Pain, Mild. 120 Tab 0 03/17/2020 Active metroNIDAZOLE (FLAGYL) 500 MG TabletIndications:Di [...] EVERY DAY 90 Tab 1 03/22/2020 Active documented as of this encounter (statuses as of 04/25/2020) Active Problems Problem Noted Date Morbid obesity [...] as of this encounter (statuses as of 04/25/2020) Resolved Problems Problem Noted Date Resolved Date [...] Hypoxemia 10/08/2011 10/30/2015 Genetic Sleep Disorder Research Other*[id number] 07/25/2011 05/15/2016 Diverticulitis of colon 07/25/2011 01/06/20 [...] as of this encounter (statuses as of 04/25/2020) Immunizations Name Administration Dates Next Due Hepatitis [...] Surgical Covid Testing Connie [address] [place] [address] 05/08/2020 Procedure Only Endoscopy Judson Lloyd MD [address] [place] [address] [phone] 05/08/2020 Procedure Only Endoscopy Judson Lloyd MD [address] [place] [address] 06/06/2020 Imaging Radiology 08/08/2020 Office Visit Internal Medicine Marcela Pinto MD [address] [facility], [place] [id number] Health Maintenance Due Date Last Done Comments [...] Documents on File Type Date Recorded Patient Price Checker 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
--- OUTSIDE RECORDS SUMMARY | 2023-06-18 03:25 | External Medical Summary | Summary of Care ---
Author Name Unknown Organization [place] [address] Care Team Providers Care Mobile Therapist Name Role Phone Marcela Pinto MD Primary Care Provider [phone] Encounter Details Date Type Department Care Team Description 05/08/2020 Orders Only Gastroenterology, [facility] [address] [facility] [place] [address] Judson Lloyd MD [address] [place] [address] Allergies Active Allergy Reactions Severity Noted Date Comments Valsartan 07/10/2010 Enalapril 05/21/2006 Escitalopram Oxalate Nausea/vomiting 10/11/2009 Nauseated Iodinated Diagnostic Agents Nausea/vomiting 05/2010 IV Contrast Lisinopril 05/21/2006 Metoprolol Tartrate 11/18/2006 Made pulse low [place] Oil-Black Currant-Vit E 07/10/2010 Verapamil 03/21/2004 Bupropion Hcl 10/30/2009 Makes pt sick in the stomach documented as of this encounter (statuses as of 05/08/2020) Medications Medication Sig Dispensed Refills Start Date [...] Active dilTIAZem HCl ER Beads 360 MG [id number]:HTN, goal below 130/80 TAKE 1 CAPSULE BY [...] than 7.0% ([facility]) USE TO TEST BLOOD SUGAR 3 [...] determined,COPD, moderate ([facility]) TAKE 1 PUFF BY MOUTH 4 [...] 2017 classification ([facility]) INHALE 1 PUFF BY MOUTH EVERY [...] as of this encounter (statuses as of 05/08/2020) Active Problems Problem Noted Date Morbid obesity [...] as of this encounter (statuses as of 05/08/2020) Resolved Problems Problem Noted Date Resolved Date [...] Hypoxemia 10/08/2011 10/30/2015 Genetic Sleep Disorder Research Other*[id number] 07/25/2011 05/15/2016 Diverticulitis of colon 07/25/2011 01/06/20 [...] as of this encounter (statuses as of 05/08/2020) Immunizations Name Administration Dates Next Due Hepatitis [...] Visit Internal Medicine Marcela Pinto MD [address] [place] [address] Health Maintenance Due Date Last [...] Date/Time Associated Diagnosis Comments UPPER GI ENDOSCOPY 05/08/2020 documented in this encounter Results * UPPER GI ENDOSCOPY (05/08/2020) Specimen Narrative Performed At documented in this encounter Advance Directives Documents on File Type Date Recorded Patient Outside Upholsterer 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
--- OUTSIDE RECORDS SUMMARY | 2023-06-18 03:25 | External Medical Summary | Summary of Care ---
Author Name Unknown Organization [place] [address] Care Team Providers Care Grout Worker Name Role Phone Marcela Pinto MD Primary Care Provider [phone] Encounter Details Date Type Department Care Team Description 05/08/2020 Orders Only Gastroenterology, [facility] 132 [facility] [place] [address] Jusdon Lloyd MD [address] [place] [address] Allergies Active Allergy Reactions Severity Noted Date Comments Valsartan 07/10/2010 Enalapril 05/21/2006 Escitalopram Oxalate Nausea/vomiting 10/11/2009 Nauseated Iodinated Diagnostic Agents Nausea/vomiting 05/2010 IV Contrast Lisinopril 05/21/2006 Metoprolol Tartrate 11/18/2006 Made pulse low [place] Oil-Black Currant-Vit E 07/10/2010 Verapamil 03/21/2004 Bupropion [...] Active dilTIAZem HCl ER Beads 360 MG [id number]:HTN, goal below 130/80 TAKE 1 CAPSULE BY [...] of less than 7.0% ([facility]) USE TO TEST BLOOD SUGAR 3 [...] B, by GOLD 2017 classification ([facility]) INHALE 1 PUFF BY MOUTH EVERY [...] Hypoxemia 10/08/2011 10/30/2015 Genetic Sleep Disorder Research Other*[id number] 07/25/2011 05/15/2016 Diverticulitis of colon 07/25/2011 01/06/20 [...] Visit Internal Medicine Marcela Pinto MD [address] [place] [address] Health Maintenance Due Date Last [...] Procedure Name Priority Date/Time Associated Diagnosis Comments COLONOSCOPY 05/08/2020 documented in this encounter Results * COLONOSCOPY (05/08/2020) Specimen Narrative Performed At documented in this encounter Advance Directives Documents on File Type Date Recorded Patient Pie Cutter 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
--- OUTSIDE RECORDS SUMMARY | 2023-06-18 03:25 | External Medical Summary ---
Author Name Unknown Address [facility] [address] Phone Organization K01:[place] [id number] Laboratory Report Ordering Provider Test Date Status JOSE A JOHNSON 05/18/2020 13:13:00 Final Observation Date Value Abnormality Reference (Units ) Status Ferritin 05/18/2020 23:27 41.2 13-150 (ng/mL ) Final Performing Location [place] [id number]
--- OUTSIDE RECORDS SUMMARY | 2023-06-18 03:25 | External Medical Summary ---
Author Name Unknown Address Unknown Organization [facility] USE ONLY!!! Laboratory Report Ordering Provider Test Date Status ANT KOENIG 05/06/2020 14:24:00 Final Observation Date Value Abnormality Reference (Units ) Status SPECIMEN SOURCE 05/06/2020 14:25 NASAL TURBINATE Final SARS-CoV-2 ORF1ab region result 05/07/2020 16:32 NEGATIVE NEG Final Performing Location [facility] USE ONLY!!!
--- OUTSIDE RECORDS SUMMARY | 2023-06-18 03:25 | External Medical Summary | Summary of Care ---
Author Name Unknown Organization [place] [address] Care Team Providers Care Production Engineer Name Role Phone Marcela Pinto MD Primary Care Provider [phone] Encounter Details Date Type Department Care Team Description 04/10/2020 Scan Encounter Unspecified Department <No scans attached> Allergies Active Allergy Reactions Severity Noted Date Comments Valsartan 07/10/2010 Enalapril 05/21/2006 Escitalopram Oxalate Nausea/vomiting 10/11/2009 Nauseated Iodinated Diagnostic Agents Nausea/vomiting 05/2010 IV Contrast Lisinopril 05/21/2006 Metoprolol Tartrate 11/18/2006 Made pulse low [place] Oil-Black Currant-Vit E 07/10/2010 Verapamil 03/21/2004 Bupropion Hcl 10/30/2009 Makes pt sick in the stomach documented as of this encounter (statuses as of 04/13/2020) Medications Medication Sig Dispensed Refills Start Date [...] Active dilTIAZem HCl ER Beads 360 MG [id number]:HTN, goal below 130/80 TAKE 1 CAPSULE BY [...] 300 Each 1 01/05/2020 Active Glucose Blood ([employer] CONTOUR TEST) STRPIndications:Type 2 diabetes mellitus with hemoglobin A1c goal of less than 7.0% ([facility]) USE TO TEST BLOOD SUGAR 3 TIMES A DAY FOR DIAGNOSIS CODE OF E11.9 300 Strip 1 01/05/2020 Active Blood Glucose Monitoring Suppl (CONTOUR MONITOR) w/Device KIT USE TO TEST BLOOD SUGAR 3 TIMES A DAY FOR DIAGNOSIS CODE OF E11.9 1 Kit 0 01/05/2020 Active COMBIVENT RESPIMAT 20-100 MCG/ACT InhalerIndications:A sthma with severity to be determined,COPD, moderate ([facility] [...] , group B, by GOLD 2017 classification ([facility]) INHALE 1 PUFF BY MOUTH EVERY [...] as of this encounter (statuses as of 04/13/2020) Active Problems Problem Noted Date Morbid obesity [...] as of this encounter (statuses as of 04/13/2020) Resolved Problems Problem Noted Date Resolved Date [...] Hypoxemia 10/08/2011 10/30/2015 Genetic Sleep Disorder Research Other*[id number] 07/25/2011 05/15/2016 Diverticulitis of colon 07/25/2011 01/06/20 [...] as of this encounter (statuses as of 04/13/2020) Immunizations Name Administration Dates Next Due Hepatitis [...] Surgical Covid Testing Connie [address] [place] [address] 05/08/2020 Procedure Only Endoscopy Judson Lloyd MD [address] [place] [address] [phone] 05/08/2020 Procedure Only Endoscopy Judson Lloyd MD [address] [place] [address] 06/06/2020 Imaging Radiology 08/08/2020 Office Visit Internal Medicine Marcela Pinto MD [address] [facility], [place] [id number] Health Maintenance Due Date Last Done Comments [...] Documents on File Type Date Recorded 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
--- OUTSIDE RECORDS SUMMARY | 2023-06-18 03:25 | External Medical Summary | Summary of Care ---
Author Name Unknown Organization [place] [address] Care Team Providers Care Checker And Packer Name Role Phone Marcela Pinto MD Primary Care Provider [phone] Encounter Details Date Type Department Care Team Description 05/08/2020 Result Scan Gastroenterology, [facility] [address] [facility] [place] [address] Judson Lloyd MD [address] [place] [id number] <No scans attached> Allergies Active Allergy Reactions Severity Noted Date Comments Valsartan 07/10/2010 Enalapril 05/21/2006 Escitalopram Oxalate Nausea/vomiting 10/11/2009 Nauseated Iodinated Diagnostic Agents Nausea/vomiting 05/2010 IV Contrast Lisinopril 05/21/2006 Metoprolol Tartrate 11/18/2006 Made pulse low [place] Oil-Black Currant-Vit E 07/10/2010 Verapamil 03/21/2004 Bupropion Hcl 10/30/2009 Makes pt sick in the stomach documented as of this encounter (statuses as of 05/10/2020) Medications Medication Sig Dispensed Refills Start Date [...] Active dilTIAZem HCl ER Beads 360 MG [id number]:HTN, goal below 130/80 TAKE 1 CAPSULE BY [...] 300 Each 1 01/05/2020 Active Glucose Blood ([employer] CONTOUR TEST) STRPIndications:Type 2 diabetes mellitus with [...] as of this encounter (statuses as of 05/10/2020) Active Problems Problem Noted Date Morbid obesity [...] as of this encounter (statuses as of 05/10/2020) Resolved Problems Problem Noted Date Resolved Date [...] Hypoxemia 10/08/2011 10/30/2015 Genetic Sleep Disorder Research Other*[id number] 07/25/2011 05/15/2016 Diverticulitis of colon 07/25/2011 01/06/20 [...] as of this encounter (statuses as of 05/10/2020) Immunizations Name Administration Dates Next Due Hepatitis [...] Visit Internal Medicine Marcela Pinto MD [address] [place] [address] Health Maintenance Due Date Last [...] Procedure Name Priority Date/Time Associated Diagnosis Comments PATHOLOGY SCANNED RESULT 05/08/2020 documented in this encounter Results * PATHOLOGY SCANNED RESULT (05/08/2020) Specimen Narrative Performed At documented in this encounter Advance Directives Documents on File Type Date Recorded 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
--- OUTSIDE RECORDS SUMMARY | 2023-06-18 03:25 | External Medical Summary | Summary of Care ---
Author Name Unknown Organization [place] [address] Care Team Providers Care Application Software Engineer Name Role Phone Alex Pinto MD Primary Care Provider [phone] Reason for Visit * Reason Comments eRx-Medication Refill Encounter Details Date Type Department Care Team Description 05/15/2020 Refill General Internal Medicine [facility] [address] [place], [place] [id number] Alex Pinto MD [address] [place] [address] [phone] HTN, goal below 130/80 Allergies Active Allergy Reactions Severity Noted Date Comments Valsartan 07/10/2010 Enalapril 05/21/2006 Escitalopram Oxalate Nausea/vomiting 10/11/2009 Nauseated Iodinated Diagnostic Agents Nausea/vomiting 05/2010 IV Contrast Lisinopril 05/21/2006 Metoprolol Tartrate 11/18/2006 Made pulse low [place] Oil-Black Currant-Vit E 07/10/2010 Verapamil 03/21/2004 Bupropion Hcl 10/30/2009 Makes pt sick in the stomach documented as of this encounter (statuses as of 05/16/2020) Medications Medication Sig Dispensed Refills Start Date [...] 300 Each 1 0 Active Glucose Blood ([employer] CONTOUR TEST) STRPIndications:Typ e 2 diabetes mellitus with hemoglobin A1c goal of less than 7.0% ([facility]) USE TO TEST BLOOD SUGAR 3 [...] 1 0 Active INCRUSE ELLIPTA 62.5 MCG/INH AEPBIndications:RAISIN WASHER D, group B, by GOLD 2017 classification ([facility]) INHALE 1 PUFF BY MOUTH EVERY DAY 30 Each 3 0 Active omeprazole (PRILOSEC) 20 MG CPDRIndications:Isc hemic colitis ([facility]) TAKE 1 CAPSULE BY MOUTH TWICE A DAY 180 Cap 1 0 Active metroNIDAZOLE (FLAGYL) 500 MG TabletIndications:D iverticulitis of colon Take 1 Tab by mouth 3 times a day. until gone. 30 Tab 0 0 Active Additional Information Patient not taking. Reported on 04/03/2020 1:06 PM ondansetron ODT (ZOFRAN) 8 MG TBDPIndications:David sea DISSOLVE 1 TABLET ON TONGUE EVERY 8 HOURS NEEDED FOR NAUSEA 60 Tab 5 0 Active Additional Information Patient not taking. [...] A MEAL 360 Tab 1 0 Active dilTIAZem HCl ER Beads 360 MG [id number]:HTN , goal below 130/80 TAKE 1 CAPSULE BY MOUTH EVERY DAY 90 Cap 1 0 Active dilTIAZem HCl ER Beads 360 MG [id number]:HTN , goal below 130/80 TAKE 1 CAPSULE BY MOUTH EVERY DAY 90 Cap 1 0 05/16/20 20 Discontinued documented as of this encounter (statuses as of 05/16/2020) Active Problems Problem Noted Date Morbid obesity [...] as of this encounter (statuses as of 05/16/2020) Resolved Problems Problem Noted Date Resolved Date [...] Hypoxemia 10/08/2011 10/30/2015 Genetic Sleep Disorder Research Other*[id number] 07/25/2011 05/15/2016 Diverticulitis of colon 07/25/2011 01/06/20 [...] as of this encounter (statuses as of 05/16/2020) Immunizations Name Administration Dates Next Due Hepatitis [...] AM EDT documented as of this encounter Miscellaneous Notes * Telephone Encounter - Melvi Juan RPh - 05/16/2020 12:17 PM EDT Signed Prescriptions: Disp Refills dilTIAZem HCl ER Beads 360 MG CP24 90 Cap 1 Sig: TAKE 1 CAPSULE BY MOUTH EVERY DAYAuthorizing Provider: ALEX PINTO User: MELVI JUAN documented in this encounter Plan of Treatment Upcoming Encounters Date Type Specialty Care Team Description 05/18/2020 Office Visit Internal Medicine Alex Pinto MD [address] [place] [address] 06/06/2020 Imaging Radiology 08/08/2020 Office Visit Internal Medicine Alex Pinto MD [address] [place] [address] [phone] Health Maintenance Due Date Last Done Comments [...] encounter Visit Diagnoses Diagnosis HTN, goal below 130/80 Unspecified essential hypertension documented in this encounter Advance Directives Documents on File Type Date Recorded 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
--- OUTSIDE RECORDS SUMMARY | 2023-06-18 03:25 | External Medical Summary ---
Author Name Unknown Address [address] [facility] [address] Phone Organization K0G:[facility] Connie Doran [address] [facility] [place] [address] Laboratory Report Ordering Provider Test Date Status JOSE A JOHNSON 05/18/2020 13:13:00 Final Observation Date Value Abnormality Reference (Units ) Status BUN 05/18/2020 14:53 18 6-20 (mg/dL) Final Creatinine 05/18/2020 14:53 1.1 Above high normal 0.5- 1.0 (mg/dL) Final E Glom Filt Rate 05/18/2020 14:53 47.0 Below low normal >60 Final Performing Location [facility] [employer] [address] [facility] [place] [address]
--- OUTSIDE RECORDS SUMMARY | 2023-06-18 03:26 | External Medical Summary | Summary of Care ---
Author Name Unknown Organization [facility] [address] Care Team Providers Care Care Trainer Name Role Phone Marcela Pinto MD Primary Care Provider [phone] Encounter Details Date Type Department Care Team Description 03/10/2020 Orders Only General Internal Medicine [facility] [address] [facility] [address] [place], [place] [id number] Marcela Pinto MD [address] [facility] [address] [place], [place] [id number] Allergies Active Allergy Reactions Severity Noted Date Comments Valsartan 07/10/2010 Enalapril 05/21/2006 Escitalopram Oxalate Nausea/vomiting 10/11/2009 Nauseated Iodinated Diagnostic Agents Nausea/vomiting 05/2010 IV Contrast Lisinopril 05/21/2006 Metoprolol Tartrate 11/18/2006 Made pulse low [place] Oil-Black Currant-Vit E 07/10/2010 Verapamil 03/21/2004 Bupropion Hcl 10/30/2009 Makes pt sick in the stomach documented as of this encounter (statuses as of 03/10/2020) Medications Medication Sig Dispensed Refills Start Date [...] with it. 1 Each 1 11/12/2018 Active ondansetron ODT (ZOFRAN) 8 MG TBDPIndications:Naus ea DISSOLVE 1 TABLET ON TONGUE EVERY 8 HOURS NEEDED FOR NAUSEA 60 Tab 5 11/24/2018 Active glimepiride (AMARYL) 4 MG TabletIndications:Ty pe [...] J45.909, J44.9 225 mL 1 06/29/2019 Active fluticasone (FLONASE) 50 MCG/ACT nasal sprayIndications:Chr onic maxillary sinusitis,Otalgia of both ears Administer 2 Sprays into each nostril daily. 1 Bottle 11 08/26/2019 Active omeprazole (PRILOSEC) 20 MG CPDRIndications:Isch emic colitis (HCC) TAKE 1 CAPSULE BY MOUTH TWICE A DAY 180 Cap 1 09/15/2019 Active zafirlukast (ACCOLATE) 20 MG TabletIndications:As thma with severity to be determined TAKE 1 TABLET BY MOUTH EVERY DAY 90 Tab 1 09/23/2019 Active doxycycline 100 MG Tablet Take 100 [...] Active dilTIAZem HCl ER Beads 360 MG XV05Hgcleydzyan:HTN, goal below 130/80 TAKE 1 CAPSULE BY [...] A DAY 12 g 3 01/14/2020 Active HYDROcodone-acetamin ophen 5-325 mg per tab 5-325 MG per tabletIndications:Ge neralized osteoarthritis Take 1 Tab by mouth every 6 hours as needed for Pain, Mild. 120 Tab 0 02/08/2020 Active furosemide (LASIX) 40 MG TabletIndications:Es sential hypertension with goal blood pressure less than 130/80 TAKE 2 TABLETS BY MOUTH TWICE A DAY. TAKE BEFORE A MEAL 120 Tab 2 02/15/2020 Active atorvaSTATin (LIPITOR) 40 MG TabletIndications:Hy perlipidemia with target LDL less than 100 TAKE 1 TABLET BY MOUTH EVERY DAY 90 Tab 1 02/28/2020 Active metroNIDAZOLE (FLAGYL) 500 MG TabletIndications:Di verticulitis of colon Take 1 Tab by mouth 3 times a day for 10 days. until gone. 30 Tab 0 03/01/2020 0 Active ciprofloxacin (CIPRO) 500 MG TabletIndications:Di verticulitis of colon Take 1 Tab by mouth every 12 hours for 10 days. 20 Tab 0 03/01/2020 0 Active INCRUSE ELLIPTA 62.5 MCG/INH AEPBIndications:COPD , group B, by GOLD 2017 classification ([facility]) INHALE 1 PUFF BY MOUTH EVERY DAY 30 Each 3 03/09/2020 Active documented as of this encounter (statuses as of 03/10/2020) Active Problems Problem Noted Date Morbid obesity [...] as of this encounter (statuses as of 03/10/2020) Resolved Problems Problem Noted Date Resolved Date [...] Hypoxemia 10/08/2011 10/30/2015 Genetic Sleep Disorder Research Other*[id number] 07/25/2011 05/15/2016 Diverticulitis of colon 07/25/2011 01/06/20 [...] as of this encounter (statuses as of 03/10/2020) Immunizations Name Administration Dates Next Due Hepatitis [...] file Travel History Travel Start Travel End documented as of this encounter Plan of Treatment Upcoming Encounters Date Type Specialty Care Team Description 06/06/2020 Imaging Radiology 08/08/2020 Office Visit Internal Medicine Marcela Pinto MD [address] [place] [address] Pending Results Name Type Priority Associated Diagnoses Date /Time CHEMISTRY-OUTSIDE Lab Routine 020 TSH Lab Routine 03/10/2020 Health Maintenance Due Date Last Done Comments Zoster Vaccines (2 of 3) 08/31/2012 07/06/2012 DXA-EVERY 5 YRS-USE SMARTSET# [id number] TO ORDER 05/01/2020 05/01/2015, 06/19/2010, 06/19/2010, Additional history exists DIABETES-HGBA1C EVERY 6 MONTHS 08/03/2020 02/02/2020, 08/26/2019, 08/12/2019, Additional history exists DIABETES-EYE EXAM 08/10/2020 08/10/2019, [...] on File Type Date Recorded 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
--- OUTSIDE RECORDS SUMMARY | 2023-06-18 03:26 | External Medical Summary | Summary of Care ---
Author Name Unknown Organization [place] [address] Care Team Providers Care First Cook Name Role Phone Alex Pinto MD Primary Care Provider Reason for Visit * Reason Comments eRx-Medication Refill Encounter Details Date Type Department Care Team Description 03/08/2020 Refill General Internal Medicine [facility] [address] [place] [address] Sisi Xiao PA-C [address] [place] [address] COPD, group B, by GOLD 2017 classification (HCC) Allergies Active Allergy Reactions Severity Noted Date Comments Valsartan 07/10/2010 Enalapril 05/21/2006 Escitalopram Oxalate Nausea/vomiting 10/11/2009 Nauseated Iodinated Diagnostic Agents Nausea/vomiting 05/2010 IV Contrast Lisinopril 05/21/2006 Metoprolol Tartrate 11/18/2006 Made pulse low [place] Oil-Black Currant-Vit E 07/10/2010 Verapamil 03/21/2004 Bupropion Hcl 10/30/2009 Makes pt sick in the stomach documented as of this encounter (statuses as of 03/09/2020) Medications Medication Sig Dispensed Refills Start Date [...] 0 8 Active KLOR-CON M20 20 MEQ TBCRIndications:HTN , goal below 140/90 TAKE 1 TABLET BY MOUTH DAILY 90 Tab 1 8 Active Nebulizers (NEBULIZER COMPRESSOR) MISC Inhale via nebulizer. Use as directed. Please give tubing to use with it. 1 Each 1 9 Active ondansetron ODT (ZOFRAN) 8 MG TBDPIndications:David sea DISSOLVE 1 TABLET ON TONGUE EVERY 8 HOURS NEEDED FOR NAUSEA 60 Tab 5 9 Active glimepiride (AMARYL) 4 MG TabletIndications:T [...] J45.909, J44.9 225 mL 1 9 Active fluticasone (FLONASE) 50 MCG/ACT nasal sprayIndications:Ch ronic maxillary sinusitis,Otalgia of both ears Administer 2 Sprays into each nostril daily. 1 Bottle 11 9 Active omeprazole (PRILOSEC) 20 MG CPDRIndications:Isc hemic colitis (HCC) TAKE 1 CAPSULE BY MOUTH TWICE A DAY 180 Cap 1 9 Active zafirlukast (ACCOLATE) 20 MG TabletIndications:A sthma with severity to be determined TAKE 1 TABLET BY MOUTH EVERY DAY 90 Tab 1 9 Active doxycycline 100 MG Tablet [...] Active dilTIAZem HCl ER Beads 360 MG MQ08Ltabnpxfxzy:HTN , goal below 130/80 TAKE 1 CAPSULE BY MOUTH EVERY DAY 90 Cap 1 0 Active guaiFENesin-codeine (ROBITUSSIN AC) 100-10 [...] goal of less than 7.0% ([facility]) Use as directed. USE TO TEST BLOOD SUGAR 3 TIMES A DAY FOR DIAGNOSIS CODE OF E11.9 300 Each 1 0 Active Glucose Blood (YEIMY CONTOUR TEST) STRPIndications:Typ e 2 diabetes mellitus with hemoglobin A1c goal of less than 7.0% ([facility]) USE TO TEST BLOOD SUGAR 3 TIMES A DAY FOR DIAGNOSIS CODE OF E11.9 300 Strip 1 0 Active Blood Glucose Monitoring Suppl (CONTOUR MONITOR) w/Device KIT USE TO TEST BLOOD SUGAR 3 TIMES A DAY FOR DIAGNOSIS CODE OF E11.9 1 Kit 0 0 Active COMBIVENT RESPIMAT 20-100 MCG/ACT InhalerIndications: Asthma with severity to be determined,COPD, moderate ([facility]) TAKE 1 PUFF BY MOUTH 4 TIMES A DAY 12 g 3 0 Active HYDROcodone-acetami nophen 5-325 mg per tab 5-325 MG per tabletIndications:G eneralized osteoarthritis Take 1 Tab by mouth every 6 hours as needed for Pain, Mild. 120 Tab 0 0 Active furosemide (LASIX) 40 MG TabletIndications:E ssential hypertension with goal blood pressure less than 130/80 TAKE 2 TABLETS BY MOUTH TWICE A DAY. TAKE BEFORE A MEAL 120 Tab 2 0 Active atorvaSTATin (LIPITOR) 40 MG TabletIndications:H yperlipidemia with target LDL less than 100 TAKE 1 TABLET BY MOUTH EVERY DAY 90 Tab 1 0 Active metroNIDAZOLE (FLAGYL) 500 MG TabletIndications:D iverticulitis of colon Take 1 Tab by mouth 3 times a day for 10 days. until gone. 30 Tab 0 0 03/11/20 20 Active ciprofloxacin (CIPRO) 500 MG TabletIndications:D iverticulitis of colon Take 1 Tab by mouth every 12 hours for 10 days. 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 30 Each 1 0 03/09/20 20 Discontinued documented as of this encounter (statuses as of 03/09/2020) Active Problems Problem Noted Date Morbid obesity [...] as of this encounter (statuses as of 03/09/2020) Resolved Problems Problem Noted Date Resolved Date [...] Hypoxemia 10/08/2011 10/30/2015 Genetic Sleep Disorder Research Other*[id number] 07/25/2011 05/15/2016 Diverticulitis of colon 07/25/2011 01/06/20 [...] as of this encounter (statuses as of 03/09/2020) Immunizations Name Administration Dates Next Due Hepatitis [...] Travel End documented as of this encounter Miscellaneous Notes * Telephone Encounter - Gabe Jo RPh - 03/09/2020 8:06 AM EDT Signed Prescriptions: Disp Refills INCRUSE ELLIPTA 62.5 MCG/INH AEPB 30 Each3 Sig: INHALE 1 PUFF BYMOUTH EVERY DAYAuthorizing Provider: ALEX PINTO User: GABE JO documented in this encounter Plan of Treatment Upcoming Encounters Date Type Specialty Care Team Description 06/06/2020 Imaging Radiology 08/08/2020 Office Visit Internal Medicine Alex Pinto MD [address] [facility], [place] [address] [phone] Health Maintenance Due Date Last Done Comments [...] Documents on File Type Date 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
--- OUTSIDE RECORDS SUMMARY | 2023-06-18 03:26 | External Medical Summary | Summary of Care ---
Author Name Unknown Organization [place] [address] Care Team Providers Care E Learning Specialist Name Role Phone Marcela Pinto MD Primary Care Provider [phone] Encounter Details Date Type Department Care Team Description 04/03/2020 Orders Only Gastroenterology, [facility] [address] [facility] [place] [address] Judson Lloyd MD [address] [place] [address] Preoperative examination* Allergies Active Allergy Reactions Severity Noted Date Comments Valsartan 07/10/2010 Enalapril 05/21/2006 Escitalopram Oxalate Nausea/vomiting 10/11/2009 Nauseated Iodinated Diagnostic Agents Nausea/vomiting 05/2010 IV Contrast Lisinopril 05/21/2006 Metoprolol Tartrate 11/18/2006 Made pulse low [place] Oil-Black Currant-Vit E 07/10/2010 Verapamil 03/21/2004 Bupropion Hcl 10/30/2009 Makes pt sick in the stomach documented as of this encounter (statuses as of 04/03/2020) Medications Medication Sig Dispensed Refills Start Date [...] Active dilTIAZem HCl ER Beads 360 MG [id number]:HTN, goal below 130/80 TAKE 1 CAPSULE BY [...] as of this encounter (statuses as of 04/03/2020) Active Problems Problem Noted Date Morbid obesity [...] as of this encounter (statuses as of 04/03/2020) Resolved Problems Problem Noted Date Resolved Date [...] Hypoxemia 10/08/2011 10/30/2015 Genetic Sleep Disorder Research Other*[id number] 07/25/2011 05/15/2016 Diverticulitis of colon 07/25/2011 01/06/20 [...] as of this encounter (statuses as of 04/03/2020) Immunizations Name Administration Dates Next Due Hepatitis [...] Surgical Covid Testing Connie [address] [place] [address] 05/08/2020 Procedure Only Endoscopy Judson Lloyd MD [address] [facility] [place] [place] [address] [phone] 05/08/2020 Procedure Only Endoscopy Judson Lloyd MD [address] [facility] [address] [phone] 06/06/2020 Imaging Radiology 08/08/2020 Office Visit Internal Medicine Marcela Pinto MD [address] [facility] [place] [address] [phone] Scheduled Orders Name Type Priority Associated Diagnoses Orde r Schedule COVID-19 Lab Routine Preoperative examination Expected: 05/03/2020 (Approximate), Expires: 07/04/2020 Health Maintenance Due Date Last Done Comments [...] as of this encounter Visit Diagnoses Diagnosis Preoperative examination- Primary Preoperative examination, unspecified documented in this encounter Advance Directives Documents on File Type Date Recorded Patient Drug Safety Data Management Specialist 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
--- OUTSIDE RECORDS SUMMARY | 2023-06-18 03:26 | External Medical Summary | Summary of Care ---
Author Name Unknown Organization [place] [address] Care Team Providers Care Academic Affairs Specialist Name Role Phone Alex Pinto MD Primary Care Provider [phone] Reason for Visit * Reason Comments eRx-Medication Refill Encounter Details Date Type Department Care Team Description 03/17/2020 Refill General Internal Medicine [facility] [address] [place] [address] Alex Pinto MD [address] [place] [address] [phone] Ischemic colitis (HCC) Allergies Active Allergy Reactions Severity Noted Date Comments Valsartan 07/10/2010 Enalapril 05/21/2006 Escitalopram Oxalate Nausea/vomiting 10/11/2009 Nauseated Iodinated Diagnostic Agents Nausea/vomiting 05/2010 IV Contrast Lisinopril 05/21/2006 Metoprolol Tartrate 11/18/2006 Made pulse low [place] Oil-Black Currant-Vit E 07/10/2010 Verapamil 03/21/2004 Bupropion Hcl 10/30/2009 Makes pt sick in the stomach documented as of this encounter (statuses as of 03/17/2020) Medications Medication Sig Dispensed Refills Start Date [...] nostril daily. 1 Bottle 11 9 Active zafirlukast (ACCOLATE) 20 MG TabletIndications:A [...] Active dilTIAZem HCl ER Beads 360 MG [id number]:HTN , goal below 130/80 TAKE 1 CAPSULE [...] 1 0 Active INCRUSE ELLIPTA 62.5 MCG/INH AEPBIndications:FIELD KILN BURNER D, group B, by GOLD 2017 classification ([facility]) INHALE 1 PUFF BY MOUTH EVERY DAY 30 Each 3 0 Active omeprazole (PRILOSEC) 20 MG CPDRIndications:Isc hemic colitis (HCC) TAKE 1 CAPSULE BY MOUTH TWICE A DAY 180 Cap 1 0 Active omeprazole (PRILOSEC) 20 MG CPDRIndications:Isc hemic colitis (HCC) TAKE 1 CAPSULE BY MOUTH TWICE A DAY 180 Cap 1 9 03/17/20 20 Discontinued documented as of this encounter (statuses as of 03/17/2020) Active Problems Problem Noted Date Morbid obesity [...] as of this encounter (statuses as of 03/17/2020) Resolved Problems Problem Noted Date Resolved Date [...] Hypoxemia 10/08/2011 10/30/2015 Genetic Sleep Disorder Research Other*[id number] 07/25/2011 05/15/2016 Diverticulitis of colon 07/25/2011 01/06/20 [...] as of this encounter (statuses as of 03/17/2020) Immunizations Name Administration Dates Next Due Hepatitis [...] Notes * Telephone Encounter - Ce Jacobo [facility] - 03/17/2020 1:35 PM EDT Signed Prescriptions: Disp Refills omeprazole (PRILOSEC) 20 MG CPDR 180 Cap1 Sig: TAKE 1 CAPSULE BY MOUTH TWICE A DAYAuthorizing Provider: ALEX PINTO User: CE JACOBO * Telephone Encounter - Ce Jacobo [facility] - 03/17/2020 1:33 PM EDT Reviewed mag level from outside labs 12/17/2019. Normal. Thank you, Ce Jacobo, PharmD Clinical Pharmacist TelePharmacy 03/17/20 1:34 PM documented in this encounter Plan of Treatment Upcoming Encounters Date Type Specialty Care Team Description 06/06/2020 Imaging Radiology 08/08/2020 Office Visit Internal Medicine Alex Pinto MD [address] [facility] [place] [address] [phone] Health Maintenance Due Date Last Done Comments [...] Documents on File Type Date Recorded Patient Firer Electric Locomotive 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
--- OUTSIDE RECORDS SUMMARY | 2023-06-18 03:26 | External Medical Summary | Summary of Care ---
Author Name Unknown Organization [place] [address] Care Team Providers Care Cable Splicer Apprentice Name Role Phone Alex Pinto MD Primary Care Provider [phone] Reason for Visit * Reason Comments eRx-Medication Refill Encounter Details Date Type Department Care Team Description 02/28/2020 Refill General Internal Medicine [facility] [address] [place], [place] [id number] Alex Pinto MD [address] [place] [address] [phone] Hyperlipidemia with target LDL less than 100 Allergies Active Allergy Reactions Severity Noted Date Comments Valsartan 07/10/2010 Enalapril 05/21/2006 Escitalopram Oxalate Nausea/vomiting 10/11/2009 Nauseated Iodinated Diagnostic Agents Nausea/vomiting 05/2010 IV Contrast Lisinopril 05/21/2006 Metoprolol Tartrate 11/18/2006 Made pulse low [place] Oil-Black Currant-Vit E 07/10/2010 Verapamil 03/21/2004 Bupropion Hcl 10/30/2009 Makes pt sick in the stomach documented as of this encounter (statuses as of 02/28/2020) Medications Medication Sig Dispensed Refills Start Date [...] Tab 1 8 Active Nebulizers (NEBULIZER COMPRESSOR) [facility] Inhale via nebulizer. Use as directed. Please [...] Active dilTIAZem HCl ER Beads 360 MG [id number]:HTN , goal below 130/80 TAKE 1 CAPSULE [...] yesterday (as of today, 12/30/2019). 0 Active INCRUSE ELLIPTA 62.5 MCG/INH AEPBIndications:FACILITY DESIGNER D, group B, by GOLD 2017 classification (HCC) Inhale 1 Puff by mouth daily. 30 Each 1 0 Active Lancets MISCIndications:Typ e 2 diabetes [...] MOUTH EVERY DAY 90 Tab 1 9 02/28/20 20 Discontinued documented as of this encounter (statuses as of 02/28/2020) Active Problems Problem Noted Date Morbid obesity [...] as of this encounter (statuses as of 02/28/2020) Resolved Problems Problem Noted Date Resolved Date [...] Hypoxemia 10/08/2011 10/30/2015 Genetic Sleep Disorder Research Other*[id number] 07/25/2011 05/15/2016 Diverticulitis of colon 07/25/2011 01/06/20 [...] as of this encounter (statuses as of 02/28/2020) Immunizations Name Administration Dates Next Due Hepatitis [...] have Coronavirus / COVID-19? Unable to assess 01/31/2020 10:07 AM EDT documented as of this encounter Miscellaneous Notes * Telephone Encounter - Petrona Mcrae RPh - 02/28/2020 11:56 AM EDT Signed Prescriptions: Disp Refills atorvaSTATin (LIPITOR) 40 MG Tablet 90 Tab 1 Sig: TAKE 1 TABLET BY MOUTH EVERY DAYAuthorizing Provider: ALEX PINTO User: PETRONA MCRAE Prescriptions: Disp Refills Terazosin HCl 2 MG Capsule [Pharmacy Med N*90 Cap 1 Sig: TAKE 1 CAPSULE BY MOUTH EVERY DAYRefused By: PETRONA MCRAE for Refusal: Course of treatment complete documented in this encounter Plan of Treatment Upcoming Encounters Date Type Specialty Care Team Description 06/06/2020 Imaging Radiology 08/08/2020 Office Visit Internal Medicine Alex Pinto MD [address] [facility] [place] [address] [phone] Health Maintenance Due Date Last Done Comments Zoster Vaccines (2 of 3) 08/31/2012 07/06/2012 DXA-EVERY 5 YRS-USE SMARTSET# [id number] TO ORDER 05/01/2020 05/01/2015, 06/19/2010, 06/19/2010, Additional [...] Documents on File Type Date Recorded Patient Obstetrics Teacher 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
--- OUTSIDE RECORDS SUMMARY | 2023-06-18 03:26 | External Medical Summary | Summary of Care ---
Author Name Unknown Organization [place] [address] Care Team Providers Care Certified Procedural Coder Name Role Phone Marcela Pinto MD Primary Care Provider [phone] Reason for Visit * Reason Comments Med Request Encounter Details Date Type Department Care Team Description 03/01/2020 Telephone General Internal Medicine [facility] [address] [place] [address] Marcela Pinto MD [address] [place] [address] Med Request Allergies Active Allergy Reactions Severity Noted Date Comments Valsartan 07/10/2010 Enalapril 05/21/2006 Escitalopram Oxalate Nausea/vomiting 10/11/2009 Nauseated Iodinated Diagnostic Agents Nausea/vomiting 05/2010 IV Contrast Lisinopril 05/21/2006 Metoprolol Tartrate 11/18/2006 Made pulse low [place] Oil-Black Currant-Vit E 07/10/2010 Verapamil 03/21/2004 Bupropion Hcl 10/30/2009 Makes pt sick in the stomach documented as of this encounter (statuses as of 03/01/2020) Medications Medication Sig Dispensed Refills Start Date [...] Active dilTIAZem HCl ER Beads 360 MG [id number]:HTN, goal below 130/80 TAKE 1 CAPSULE BY [...] 12/30/2019). 0 Active INCRUSE ELLIPTA 62.5 MCG/INH AEPBIndications:COPD , group B, by GOLD 2017 classification ([facility]) Inhale 1 Puff by mouth daily. 30 Each 1 12/30/2019 Active Lancets MISCIndications:Type 2 diabetes mellitus with [...] days. 20 Tab 0 03/01/2020 0 Active documented as of this encounter (statuses as of 03/01/2020) Active Problems Problem Noted Date Morbid obesity [...] as of this encounter (statuses as of 03/01/2020) Resolved Problems Problem Noted Date Resolved Date [...] Hypoxemia 10/08/2011 10/30/2015 Genetic Sleep Disorder Research Other*[id number] 07/25/2011 05/15/2016 Diverticulitis of colon 07/25/2011 01/06/20 [...] as of this encounter (statuses as of 03/01/2020) Immunizations Name Administration Dates Next Due Hepatitis [...] Telephone Encounter - Marcela Pinto MD - 03/01/2020 1:26 PM EDT Script for Cipro sent. * Telephone Encounter - Renetta Gu LPN - 03/01/2020 1:24 PM EDT Will take cipro as well, please. * Telephone Encounter - Marcela Pinto MD - 03/01/2020 12:52 PM EDT Noted. Flagyl sent to the pharmacy. Usually we do give Cipro with Flagyl so need to find out why she wants only Flagyl prescription. Any side effect from Cipro? If she has worsening abdominal pain, blood in the stool, high fever then need to go to emergency room any day. Please inform. Thank you * Telephone Encounter - Dodie Carson LPN - 03/01/2020 9:17 AM EDT Pt states that she is starting to get diverticulitis sx Started a couple of days ago with left sided abd pain She noticed a little bit of blood in her BM this morning Denies any diarrhea Denies any other sx Afebrile She is asking for Flagyl to be called in for her She states that she wants to get started on Flagyl as soon as possible so that it does not get too bad this time She does not want to come into the office and does not have transportation today Pharm selected. Please advise. documented in this encounter Plan of Treatment Upcoming Encounters Date Type Specialty Care Team Description 06/06/2020 Imaging Radiology 08/08/2020 Office Visit Internal Medicine Marcela Pinto MD [address] [facility], [place] [id number] Health Maintenance Due Date Last Done Comments [...] Documents on File Type Date Recorded Patient Compounding Pharmacy Technician 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
--- OUTSIDE RECORDS SUMMARY | 2023-06-18 03:26 | External Medical Summary | Summary of Care ---
Author Name Unknown Organization [place] [address] Care Team Providers Care Television News Anchor Name Role Phone Marcela Pinto MD Primary Care Provider [phone] Encounter Details Date Type Department Care Team Description 04/03/2020 Documentation Laboratory, [facility] [address] [facility] [place] [address] [facility] [address] [place] [address] Rectal bleeding Allergies Active Allergy Reactions Severity Noted Date Comments Valsartan 07/10/2010 Enalapril 05/21/2006 Escitalopram Oxalate Nausea/vomiting 10/11/2009 Nauseated Iodinated Diagnostic Agents Nausea/vomiting 05/2010 IV Contrast Lisinopril 05/21/2006 Metoprolol Tartrate 11/18/2006 Made pulse low [place] Oil-Black Currant-Vit E 07/10/2010 Verapamil 03/21/2004 Bupropion Hcl 10/30/2009 Makes pt sick in the stomach documented as of this encounter (statuses as of 04/04/2020) Medications Medication Sig Dispensed Refills Start Date [...] 0 11/26/2017 Active KLOR-CON M20 20 MEQ TBCRIndications:HTN , [...] 1 10/19/2019 Active dicyclomine (BENTYL) 20 MG TabletIndications:C hronic constipation TAKE 1 TABLET BY MOUTH EVERY DAY 90 Tab 2 11/01/2019 Active dilTIAZem HCl ER Beads 360 MG [id number]:HTN , goal below 130/80 TAKE 1 CAPSULE [...] 1 02/28/2020 Active INCRUSE ELLIPTA 62.5 MCG/INH AEPBIndications:PLYWOOD STOCK GRADER D, group B, by GOLD 2017 classification ([facility]) INHALE 1 PUFF BY MOUTH EVERY DAY 30 Each 3 03/09/2020 Active omeprazole (PRILOSEC) 20 MG CPDRIndications:Isc hemic colitis ([facility]) TAKE 1 CAPSULE BY MOUTH TWICE A DAY 180 Cap 1 03/17/2020 Active HYDROcodone-acetami nophen 5-325 mg per tab 5-325 MG per tabletIndications:G eneralized osteoarthritis Take 1 Tab by mouth every 6 hours as needed for Pain, Mild. 120 Tab 0 03/17/2020 Active metroNIDAZOLE (FLAGYL) 500 MG TabletIndications:D [...] EVERY DAY 90 Tab 1 03/22/2020 Active fluticasone (FLONASE) 50 MCG/ACT nasal sprayIndications:Ch ronic maxillary sinusitis,Otalgia of both ears Administer 2 Sprays into each nostril daily. 1 Bottle 11 08/26/2019 0 Discontinu ed(Patient preference /discontin uation) documented as of this encounter (statuses as of 04/04/2020) Active Problems Problem Noted Date Morbid obesity [...] as of this encounter (statuses as of 04/04/2020) Resolved Problems Problem Noted Date Resolved Date [...] Hypoxemia 10/08/2011 10/30/2015 Genetic Sleep Disorder Research Other*[id number] 07/25/2011 05/15/2016 Diverticulitis of colon 07/25/2011 01/06/20 [...] as of this encounter (statuses as of 04/04/2020) Immunizations Name Administration Dates Next Due Hepatitis [...] PM EDT documented as of this encounter Nursing Notes * Data, Entry - 04/04/2020 5:34 AM EDT Automated conversion to a Documentation Encounter documented in this encounter Plan of Treatment Upcoming Encounters Date Type Specialty Care Team Description 05/06/2020 Pandemic Screening Ancillary Doran, Pre Surgical Covid Testing Sarah [address] [facility] [place] [address] 05/08/2020 Procedure Only Endoscopy Judson Lloyd MD [address] [facility] [place] [address] [phone] 05/08/2020 Procedure Only Endoscopy Judson Lloyd MD [address] [facility] [address] [phone] 06/06/2020 Imaging Radiology 08/08/2020 Office Visit Internal Medicine Marcela Pinto MD 200 [place] [address] [phone] Health Maintenance Due Date Last Done Comments [...] Procedure Name Priority Date/Time Associated Diagnosis Comments HGB Routine 04/03/2020 1:58 PM EDT Rectal bleeding HCT Routine 04/03/2020 1:58 PM EDT Rectal bleeding documented in this encounter Results * HGB (04/03/2020 1:58 PM EDT) HGB 12.3 12.0 - 15.3 g/dL [facility] Specimen Performing Organization Address [facility] e Phone Number [facility] [address] [facility] [place] [id number] * HCT (04/03/2020 1:58 PM EDT) HCT 38.8 36.0 - 45.2 % [facility] OM Specimen Performing Organization Address [facility] e Phone Number [facility] [address] [facility] [place] [id number] documented in this encounter Visit Diagnoses Diagnosis Rectal bleeding Hemorrhage of rectum and anus documented in this encounter Advance Directives Documents on File Type Date Recorded Patient Mold Mover 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
--- OUTSIDE RECORDS SUMMARY | 2023-06-18 03:26 | External Medical Summary ---
Author Name Unknown Address 132 [facility] [place] [address] Phone Organization K0G:[facility] Connie Doran[address] [place] [address] Laboratory Report Ordering Provider Test Date Status JAS CARLSON 04/03/2020 13:58:00 Fi nal Observation Date Value Abnormality Reference (Units ) Status HCT 04/03/2020 14:22 38.8 36.0-45.2 (%) Final Performing Location [facility] [employer] [address] [place], [place] [address] [address]
--- OUTSIDE RECORDS SUMMARY | 2023-06-18 03:26 | External Medical Summary | Summary of Care ---
Author Name Unknown Organization [place] [address] Care Team Providers Care Transitions Rn Care Coordinator Name Role Phone Marcela Pinto MD Primary Care Provider [phone] Reason for Visit * Reason Comments Follow Up H/O gastrointestinal diverticular hemorrhage Encounter Details Date Type Department Care Team Description 04/03/2020 Office Visit Gastroenterology, [facility] [address] [facility] [place] [address] Courtney Sprague CRNP 132 [place] [address] Rectal bleeding* Allergies Active Allergy Reactions Severity Noted Date Comments Valsartan 07/10/2010 Enalapril 05/21/2006 Escitalopram Oxalate Nausea/vomiting 10/11/2009 Nauseated Iodinated Diagnostic Agents Nausea/vomiting 05/2010 IV Contrast Lisinopril 05/21/2006 Metoprolol Tartrate 11/18/2006 Made pulse low [place] Oil-Black Currant-Vit E 07/10/2010 Verapamil 03/21/2004 Bupropion [...] Active dilTIAZem HCl ER Beads 360 MG [id number]:HTN , goal below 130/80 TAKE 1 CAPSULE [...] 1 02/28/2020 Active INCRUSE ELLIPTA 62.5 MCG/INH AEPBIndications: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, 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, 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 ([place] [...] Hypoxemia 10/08/2011 10/30/2015 Genetic Sleep Disorder Research Other*[id number] 07/25/2011 05/15/2016 Diverticulitis of colon 07/25/2011 01/06/20 [...] Sign Reading Time Taken Comments Blood Pressure 93/52 04/03/2020 1:03 PM EDT Pulse 84 04/03/2020 1:03 PM EDT Temperature 36.8 C (98.2 F) 04/03/2020 1:03 PM ED T Respiratory Rate - - Oxygen Saturation - - Inhaled Oxygen Concentration - - Weight 104.3 kg (230 lb) 04/03/2020 1:03 PM EDT Height - - Body Mass Index 38.27 12/30/2019 10:18 AM EDT documented in this encounter Progress Notes * Courtney Sprague CRNP - 04/03/2020 1:30 PM EDT DATE OF SERVICE: 04/03/2020 REFERRING PHYSICIAN: Marcela Pinto MD CC: Diarrhea/bleeding Office Visit 04/03/2020 : S/P Watchman procedure in [place] in November. Post- poned endo, yet to [...] night wearing wet shoes - was in [place] ED dx with torn ligament in thumb. [...] review report of EGD/Colon asthe links in [employer] were not loading and access to [facility] [place] was down. CT ABD/[place] 2018: There is [...] after having recent endoscopic ultrasound with Dr. 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 04-13-18 She is a 77 yo with a hx of GERD, HTN, asthma, COPD/oxygen dependent, DM- 2, HTN, Sleep apneawho presented to the ED at [facility] for rectal bleeding on . She [...] the patient to a Low Fodmap diet. Alexanderorts that she is feeling much improved and [...] COLONOSCOPY, DIAGNOSTIC (RECTUM) 05/29/2016 poor prep, diverticulosis/inpt [facility] COLONOSCOPY, DIAGNOSTIC (RECTUM) 06/05/2017 diverticulosis, repeat 3 yrs/[facility] COLONOSCOPY, DIAGNOSTIC (RECTUM) 02/28/2018 adenomatous polyps, diverticulosis, repeat 3 yrs / [facility] COLONOSCOPY, W/BIOPSY 03/20/12 hyperplastic polyps rpt 3 years. EGD, FLEXIBLE, DIAGNOSTIC 04/29/2014 normal/inpt [facility] EGD, FLEXIBLE, DIAGNOSTIC 05/29/2016 fundic submucosal mass/inpt [facility] EGD, FLEXIBLE,W/ENDOSCOPIC US 11/08/2016 inflammatory changes, stomach lesion, repeat EUS 1.5 yrs/[facility] EGD, FLEXIBLE,W/ENDOSCOPIC US 05/01/2018 stromal cell (smooth muscle) neoplasm, CBD dilation, repeat 2 yrs (needs OV prior)/[facility] INCISIONAL HERNIA REPAIR, LAP, REDUCIBLE 09/29/12 Repair of incarcerated supraumbilical (incisional) hernia with [facility] mesh 09/29/12 LIGATE/CUT OVIDUCT(S) REMOVAL OF TONSILS, AGE 12+ age 11 REMOVE GALLBLADDER 1960 SIGMOIDOSCOPY, DIAGNOSTIC 04/29/2014 stool in rectum/inpt [facility] SMALL BOWEL ENDOSCOPY, REMOVE FOREIGN [...] Contrast Lisinopril Metoprolol Tartrate Made pulse low [place] Oil-Black Currant-Vit E Verapamil Wellbutrin [Bupropion Hcl] Makes pt sick in the stomach Current Outpatient Medications Medication Sig Dispense Refill zafirlukast (ACCOLATE) 20 MG Tablet TAKE 1 TABLET BY MOUTH EVERY DAY 90 Tab 1 HYDROcodone-acetaminophen 5-325 mg per tab 5-325 MG per tablet Take 1 Tab by mouth every 6 hours as needed for Pain, Mild. 120 Tab 0 omeprazole (PRILOSEC) 20 MG CPDR TAKE 1 CAPSULE BY MOUTH TWICE A DAY 180 Cap 1 INCRUSE ELLIPTA 62.5 MCG/INH AEPB INHALE 1 PUFF BY MOUTH EVERY DAY 30 Each 3 atorvaSTATin (LIPITOR) 40 MG Tablet TAKE 1 TABLET BY MOUTH EVERY DAY 90 Tab 1 furosemide (LASIX) 40 MG Tablet TAKE 2 TABLETS BY MOUTH TWICE A DAY. TAKE BEFORE A MEAL 120 Tab2 COMBIVENT RESPIMAT 20-100 MCG/ACT Inhaler TAKE 1 [...] CODE OF E11.9 300 Strip 1 Lancets MIS Use as directed. USE TO TEST BLOOD SUGAR 3 TIMES A DAY FOR DIAGNOSIS CODE OF E11.9300 Each 1 Albuterol Sulfate (VENTOLIN HFA) 108 (90 Base) MCG/ACT AERS Inhale 2 Puffs by mouth 2 times a day. guaiFENesin-codeine (ROBITUSSIN AC) 100-10 MG/5ML solution Take 10 mL by mouth every 4 hours asneeded. dilTIAZem HCl ER Beads 360 MG CP24 TAKE 1 CAPSULE BY MOUTH EVERY DAY 90 Cap 1 dicyclomine (BENTYL) 20 MG Tablet TAKE 1 TABLET BY MOUTH EVERY DAY 90 Tab 2 albuterol sulfate (PROVENTIL) (2.5 MG/3ML) 0.083% nebulizer [...] breakfast. 90 Tab 3 Nebulizers (NEBULIZER COMPRESSOR) [facility] Inhale via nebulizer. Use as directed. Please give tubing to use with it. 1 Each 1 KLOR-CON M20 20 MEQ TBCR TAKE 1 TABLET BY MOUTH DAILY 90 Tab 1 Multiple Vitamins-Minerals (ONE DAILY MULTIVITAMIN WOMEN) [...] 1000 UNITS PO TABS one tablet daily ondansetron ODT (ZOFRAN) 8 MG TBDP DISSOLVE 1 TABLET ON TONGUE EVERY 8 HOURS NEEDED FOR NAUSEA (Patient not taking: Reported on 04/03/2020) 60 Tab 5 metroNIDAZOLE (FLAGYL) 500 MG Tablet Take 1 Tab by mouth 3 times a day. until gone. (Patient not taking: Reported on 04/03/2020) 30 Tab 0 predniSONE (DELTASONE) 10 MG Tablet Take 10 mg by mouth daily. Takes 5 tabs for 2 days, 4 tabs for 2 days, 3 tabs for 2 days, 2 tabs for 2 days and 1 tab for 2 days. Started this regimen on 12/29/2019 so she took 5 tabs today and yesterday (as of today, 12/30/2019). doxycycline 100 MG Tablet Take 100 mg by mouth 2 times a day. 4 zoster vac recomb adjuvanted (SHINGRIX) 50 MCG/0.5ML injection Inject 0.5 mL into a large muscle now and repeat dose in 60 to 180 days. Please fax date this was given to our office. 1 Each 1 [facility] SENNA 8.6 MG Tablet TAKE 2 TABLETS BY MOUTH EVERY EVENING FOR 10 DAYS NEEDED FOR CONSTIPATION 0 REVIEW OF SYSTEMS: No lightheadedness or dizziness No fevers, chills, sweats No vision loss, eye pain, redness No oral ulcers, trouble swallowing No chest pain, palpitations, syncope No cough, shortness of breath, exertional dyspnea No rashes or other skin lesions No new joint pain, swelling, myalgias No edema No bleeding tendencies or excessive bruising All other findings negative. EXAM: BP 93/52 | Pulse 84 | Temp 98.2 | Wt 230 lbs (104.327kg) | BMI 38.27 kg/m | BSA 2.19 m Repeat BP taken manually w. 118/76 GENERAL: Well developed and well nourished in no acute distress. SKIN: No rashes, ulcers, jaundice HEENT: Normocephalic, sclera clear NECK: Supple LUNGS: Clear to auscultation bilaterally, no respiratory distress or accessory muscles used. HEART: Regular rate & rhythm, no murmurs and no gallops. ABDOMEN: Normal bowel sounds, soft and nontender, no masses or hepatosplenomegaly. EXTREMITIES: No palmar erythema, no ankle edema NEURO: No lateralizing findings. Sensory/Motor grossly normal. DIAGNOSTIC TEST: Hgb Hct ASSESSMENT AND PLAN: 79 year old female w/ intermittent painless rectal bleeding after course of Cipro/Flagyl for suspected diverticulitis in February. She is awake alert and oriented with stable vital signs - Labs - Low fiber diet as tolerated for now then high fiber indefinitely - EGD/Colon after clearance by cardiology - ED for emergencies - Please call with any questions or concerns RETURN TO CLINIC: 9 months NIECY Dill 04/03/2020 1:45 PM R: 04/03/2020 documented in this encounter Nursing Notes * Cassy Evans LPN - 04/03/2020 1:06 PM EDT Chief Complaint Patient presents with Follow Up H/O gastrointestinal diverticular hemorrhage Pt states that she took two rounds of cipro and flagyl and she is still seeing blood in her stool. She states that she wears a pad and you can sometimes see it on the pad. Pt states that her stool issuper dark but not light brown either. Pt states that she is also having right sided discomfort occasionally. Symptoms: NO symptoms Bowel Movement frequency: 2-3x a day but with colace Bowel Movement consistency: soft Straining: no Rectal pain: no Blood in stool: yes Type of blood: bright red rectal bleeding documented in this encounter Plan of Treatment Upcoming Encounters Date Type Specialty Care Team Description 05/06/2020 Pandemic Screening Ancillary Doran, Pre Surgical Covid Testing Connie [address] [place] [address] 05/08/2020 Procedure Only Endoscopy Judson Lloyd MD [address] [place] [address] [phone] 05/08/2020 Procedure Only Endoscopy Judson Lloyd MD [address] [place] [address] [phone] 06/06/2020 Imaging Radiology 08/08/2020 Office Visit Internal Medicine Marcela Pinto MD [address] [facility] [place] [address] [phone] Pending Results Name Type Priority Associated Diagnoses Date /Time HGB Lab Routine Rectal bleeding 04/03/2020 1:58 PM EDT HCT Lab Routine Rectal bleeding 04/03/2020 1:58 PM EDT Scheduled Orders Name Type Priority Associated Diagnoses Orde r Schedule HGB Lab Routine Rectal bleeding Expected: 04/03/2020, Expires: 1 HCT Lab Routine Rectal bleeding Expected: 04/03/2020, Expires: 1 Health Maintenance Due Date Last Done Comments [...] as of this encounter Visit Diagnoses Diagnosis Rectal bleeding- Primary Hemorrhage of rectum and anus documented in this encounter Advance Directives Documents on File Type Date Recorded 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
--- OUTSIDE RECORDS SUMMARY | 2023-06-18 03:26 | External Medical Summary | Summary of Care ---
Author Name Unknown Organization [place] [address] Care Team Providers Care Nursery Manager Name Role Phone Alex Pinto MD Primary Care Provider [phone] Reason for Visit * Reason Comments eRx-Medication Refill Encounter Details Date Type Department Care Team Description 03/20/2020 Refill General Internal Medicine [facility] [address] [place] [address] Nicolas Oro MD [address] [place] [address] [phone] Nausea Allergies Active Allergy Reactions Severity Noted Date Comments Valsartan 07/10/2010 Enalapril 05/21/2006 Escitalopram Oxalate Nausea/vomiting 10/11/2009 Nauseated Iodinated Diagnostic Agents Nausea/vomiting 05/2010 IV Contrast Lisinopril 05/21/2006 Metoprolol Tartrate 11/18/2006 Made pulse low [place] Oil-Black Currant-Vit E 07/10/2010 Verapamil 03/21/2004 Bupropion Hcl 10/30/2009 Makes pt sick in the stomach documented as of this encounter (statuses as of 03/21/2020) Medications Medication Sig Dispensed Refills Start Date [...] Tab 1 8 Active Nebulizers (NEBULIZER COMPRESSOR) [facility] Inhale via nebulizer. Use as directed. Please [...] Active dilTIAZem HCl ER Beads 360 MG [id number]:HTN , goal below 130/80 TAKE 1 CAPSULE [...] to be determined,COPD, moderate ([facility]) TAKE 1 PUFF BY MOUTH 4 TIMES A DAY 12 g 3 0 Active furosemide (LASIX) 40 MG TabletIndications:E ssential hypertension with goal blood pressure less than 130/80 TAKE 2 TABLETS BY MOUTH TWICE A DAY. 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 120 Tab 0 0 Active metroNIDAZOLE (FLAGYL) 500 MG TabletIndications:D iverticulitis of colon Take 1 Tab by mouth 3 times a day. until gone. 30 Tab 0 0 Active ciprofloxacin (CIPRO) 500 MG Tablet Take 1 Tab by mouth every 12 hours for 10 days. 20 Tab 0 0 03/27/20 20 Active ondansetron ODT (ZOFRAN) 8 MG TBDPIndications:David sea DISSOLVE 1 TABLET ON TONGUE EVERY 8 HOURS NEEDED FOR NAUSEA 60 Tab 5 0 Active ondansetron ODT (ZOFRAN) 8 MG TBDPIndications:David sea DISSOLVE 1 TABLET ON TONGUE EVERY 8 HOURS NEEDED FOR NAUSEA 60 Tab 5 9 03/21/20 20 Discontinued documented as of this encounter (statuses as of 03/21/2020) Active Problems Problem Noted Date Morbid obesity [...] as of this encounter (statuses as of 03/21/2020) Resolved Problems Problem Noted Date Resolved Date [...] Hypoxemia 10/08/2011 10/30/2015 Genetic Sleep Disorder Research Other*[id number] 07/25/2011 05/15/2016 Diverticulitis of colon 07/25/2011 01/06/20 [...] as of this encounter (statuses as of 03/21/2020) Immunizations Name Administration Dates Next Due Hepatitis [...] Telephone Encounter - Alex Pinto MD - 03/21/2020 11:45 AM EDT Signed Prescriptions: Disp Refills ondansetron ODT (ZOFRAN) 8 MG TBDP 60 Tab 5 Sig: DISSOLVE 1 TABLET ON TONGUE EVERY 8 HOURS NEEDED FOR NAUSEA Authorizing Provider: ALEX PINTO * Telephone Encounter - Sharonda Clark [facility] - 03/21/2020 11:05 AM EDT Pending Prescriptions: Disp Refills ondansetron ODT (ZOFRAN) 8 MG TBDP [Pharma*60 Tab 5 Sig: DISSOLVE 1 TABLET ON TONGUE EVERY 8 HOURS NEEDED FOR NAUSEA * Telephone Encounter - Sharonda Clark RP - 03/21/2020 11:05 AM EDT Refill pharmacists currently not authorized to approve refills for this class of medication per refill protocol. Please approve if appropriate. 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
--- OUTSIDE RECORDS SUMMARY | 2023-06-18 03:26 | External Medical Summary ---
Author Name Unknown Address [address] [facility] [place] [address] Phone Organization K0G:[facility] Connie Doran [address] [place] [address] Jaja SCHWARTZ [id number] Laboratory Report Ordering Provider Test Date Status JAS CARLSON 04/03/2020 13:58:00 Fi nal Observation Date Value Abnormality Reference (Units ) Status Hemoglobin 04/03/2020 14:22 12.3 12.0-15.3 (g /dL) Final Performing Location [facility] Connie Doran [address] [facility] [place]aja [place] [id number]
--- OUTSIDE RECORDS SUMMARY | 2023-06-18 03:26 | External Medical Summary | Summary of Care ---
Author Name Unknown Organization [place] [address] Care Team Providers Care Reproductive Healthcare Assistant Name Role Phone Alex Pinto MD Primary Care Provider [phone] Reason for Visit * Reason Comments eRx-Medication Refill Encounter Details Date Type Department Care Team Description 03/21/2020 Refill General Internal Medicine [facility] [address] [place], [place] [id number] lAex Pinto MD [address] [place] [address] [phone] Asthma with severity to be determined Allergies Active Allergy Reactions Severity Noted Date Comments Valsartan 07/10/2010 Enalapril 05/21/2006 Escitalopram Oxalate Nausea/vomiting 10/11/2009 Nauseated Iodinated Diagnostic Agents Nausea/vomiting 05/2010 IV Contrast Lisinopril 05/21/2006 Metoprolol Tartrate 11/18/2006 Made pulse low [place] Oil-Black Currant-Vit E 07/10/2010 Verapamil 03/21/2004 Bupropion Hcl 10/30/2009 Makes pt sick in the stomach documented as of this encounter (statuses as of 03/22/2020) Medications Medication Sig Dispensed Refills Start Date [...] nostril daily. 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.] as of this encounter (statuses as of 03/22/2020) Immunizations Name Administration Dates Next Due Hepatitis [...] Telephone Encounter - Gabe Jo RPh - 03/22/2020 7:59 AM EDT Signed Prescriptions: Disp Refills zafirlukast (ACCOLATE) 20 MG Tablet 90 Tab 1 Sig: TAKE 1 TABLET BY MOUTH EVERY DAYAuthorizing Provider: ALEX PINTO User: GABE JO * Telephone Encounter - Gabe Jo RPh - 03/22/2020 7:58 AM EDT Pending Prescriptions: Disp Refills zafirlukast (ACCOLATE) 20 MG Tablet [Phar*90 Tab 1 Sig: TAKE 1 TABLET BY MOUTH EVERY DAY Last Office/Telemedicine Visit: 02/01/2020 Next Office Visit: 08/08/2020 Scheduled Provider(s): Alex Pinto MD If no future appointments scheduled, and last appointment is greater than a year ago, please schedule patient for a follow-up appointment Last date the medication was ordered: 09/23/19 [id number] [facility] [place] Is this request for a controlled substance?No [...] Labs: Lab Results Component Value Date/Time CREAT 1.15 (A) 03/10/2020 CREAT 1.0 12/30/2019 10:53 AM POTASSIUM 4.7 12/30/2019 10:53 AM TSH 0.42 07/27/2018 11:32 AM LDLCALC 88.20 03/10/2020 LDLCALC 95 07/27/2018 11:32 AM LDLDIRECT 86 03/10/2020 LDLDIRECT 97 07/27/2018 11:32 AM ALT 13 07/09/2019 01:48 PM HGBA1C 7.0 (A) 03/10/2020 HGBA1C 6.6 (H) 08/26/2019 02:55 PM documented in this encounter Plan of Treatment Upcoming Encounters Date Type Specialty Care Team Description 06/06/2020 Imaging Radiology 08/08/2020 Office Visit Internal Medicine Alex Pinto MD [address] [place] [address] [phone] Health Maintenance Due Date Last Done Comments Zoster Vaccines (2 of 3) 08/31/2012 07/06/2012 DXA-EVERY 5 YRS-USE SMARTSET# [id number] TO ORDER 05/01/2020 05/01/2015, 06/19/2010, 06/19/2010, Additional [...] Documents on File Type Date Recorded 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
--- OUTSIDE RECORDS SUMMARY | 2023-06-18 03:27 | External Medical Summary | Summary of Care ---
Author Name Unknown Organization [place] [address] Care Team Providers Care Medical Radiation Dosimetrist Name Role Phone Alex Pinto MD Primary Care Provider [phone] Reason for Visit * Reason Comments eRx-Medication Refill Encounter Details Date Type Department Care Team Description 02/14/2020 Refill General Internal Medicine [facility] [address] [place], [place] [id number] Alex Pinto MD [address] [place] [address] [phone] Essential hypertension with goal blood pressure less than 130/80 Allergies Active Allergy Reactions Severity Noted Date Comments Valsartan 07/10/2010 Enalapril 05/21/2006 Escitalopram Oxalate Nausea/vomiting 10/11/2009 Nauseated Iodinated Diagnostic Agents Nausea/vomiting 05/2010 IV Contrast Lisinopril 05/21/2006 Metoprolol Tartrate 11/18/2006 Made pulse low [place] Oil-Black Currant-Vit E 07/10/2010 Verapamil 03/21/2004 Bupropion Hcl 10/30/2009 Makes pt sick in the stomach documented as of this encounter (statuses as of 02/15/2020) Medications Medication Sig Dispensed Refills Start Date [...] Tab 1 8 Active Nebulizers (NEBULIZER COMPRESSOR) [facility] Inhale via nebulizer. Use as directed. Please [...] ([facility]) Take 4 mg by mouth daily before [...] J45.909, J44.9 225 mL 1 9 Active atorvaSTATin (LIPITOR) 40 MG TabletIndications:H yperlipidemia with target LDL less than 100 TAKE 1 TABLET BY MOUTH EVERY DAY 90 Tab 1 9 Active fluticasone (FLONASE) 50 MCG/ACT [...] Active dilTIAZem HCl ER Beads 360 MG [id number]:HTN , goal below 130/80 TAKE 1 CAPSULE [...] 12/30/2019). 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) Inhale 1 Puff by mouth daily. 30 Each 1 0 Active Lancets MISCIndications:Typ e 2 diabetes mellitus with hemoglobin A1c goal of less than 7.0% ([facility]) Use as directed. USE TO TEST BLOOD SUGAR 3 TIMES A DAY FOR DIAGNOSIS CODE OF E11.9 300 Each 1 0 Active Glucose Blood ([employer] CONTOUR TEST) STRPIndications:Typ e 2 diabetes mellitus [...] A MEAL 120 Tab 2 0 Active furosemide (LASIX) 40 MG TabletIndications:E ssential hypertension with goal blood pressure less than 130/80 TAKE 1 TABLET BY MOUTH DAILY NEEDED FOR EDEMA 30 Tab 11 8 02/15/20 20 Discontinued documented as of this encounter (statuses as of 02/15/2020) Active Problems Problem Noted Date Morbid obesity [...] as of this encounter (statuses as of 02/15/2020) Resolved Problems Problem Noted Date Resolved Date [...] Hypoxemia 10/08/2011 10/30/2015 Genetic Sleep Disorder Research Other*[id number] 07/25/2011 05/15/2016 Diverticulitis of colon 07/25/2011 01/06/20 [...] as of this encounter (statuses as of 02/15/2020) Immunizations Name Administration Dates Next Due Hepatitis [...] Telephone Encounter - Alex Pinto MD - 02/15/2020 9:37 AM EDT Signed Prescriptions: Disp Refills furosemide (LASIX) 40 MG Tablet 120 Tab2 Sig: TAKE 2 TABLETS BY MOUTH TWICE A DAY. TAKE BEFORE A MEAL Authorizing Provider: ALEX PINTO * Telephone Encounter - Missy Carbajal RPh - 02/15/2020 6:44 AM EDT Pending Prescriptions: Disp Refills furosemide (LASIX) 40 MG Tablet [Pharmacy*120 Tab2 Sig: TAKE 2 TABLETS BY MOUTH TWICE A DAY. TAKE BEFORE A MEAL * Telephone Encounter - SolomonMissy, [facility] - 02/15/2020 6:41 AM EDT Per previous OV notes from 12/29 and 01/12, patient currently on Lasix 80mg BID. Order pended. Please approve if appropriate. Thank you, Missy Carbajal, PharmD. Clinical Pharmacist Pharmacy Refill Call Center 02/15/2020, 6:43 AM Pending Prescriptions: Disp Refills furosemide (LASIX) 40 MG Tablet [Pharmacy*120 Tab0 Sig: TAKE 2 TABLETS BY MOUTH TWICE A DAY. TAKE BEFORE A MEAL Last Office/Telemedicine Visit: 02/01/2020 Next Office Visit: 08/08/2020 Scheduled Provider(s): Alex Pinto MD If no future appointments scheduled, and last appointment is greater than a year ago, please schedule patient for a follow-up appointment Last date the medication was ordered: 05/25/18 Pharmacy: [id number] [id number] [facility] Is this request for a controlled [...] Labs: Lab Results Component Value Date/Time CREAT 1.00 02/02/2020 CREAT 1.0 12/30/2019 10:53 AM POTASSIUM 4.7 12/30/2019 10:53 AM TSH 0.42 07/27/2018 11:32 AM LDLCALC 94.80 08/12/2019 LDLCALC 95 07/27/2018 11:32 AM LDLDIRECT 100 08/12/2019 LDLDIRECT 97 07/27/2018 11:32 AM ALT 13 07/09/2019 01:48 PM HGBA1C 7.3 (A) 02/02/2020 HGBA1C 6.6 (H) 08/26/2019 02:55 PM documented in this encounter Plan of Treatment Upcoming Encounters Date Type Specialty Care Team Description 06/06/2020 Imaging Radiology 08/08/2020 Office Visit Internal Medicine Alex Pinto MD [address] [facility] [address] [phone] Health Maintenance Due Date Last Done Comments [...] Documents on File Type Date Recorded 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
--- OUTSIDE RECORDS SUMMARY | 2023-06-18 03:27 | External Medical Summary | Summary of Care ---
Author Name Unknown Organization [place] [address] Care Team Providers Care Staff Educator Name Role Phone Marcela Pinto MD Primary Care Provider [phone] Encounter Details Date Type Department Care Team Description 02/03/2020 Orders Only General Internal Medicine [facility] [address] [facility] [address] [address] [place], [place] [id number] Marcela Pinto MD [address] [facility] [place], [place] [id number] Allergies Active Allergy Reactions Severity Noted Date Comments Valsartan 07/10/2010 Enalapril 05/21/2006 Escitalopram Oxalate Nausea/vomiting 10/11/2009 Nauseated Iodinated Diagnostic Agents Nausea/vomiting 05/2010 IV Contrast Lisinopril 05/21/2006 Metoprolol Tartrate 11/18/2006 Made pulse low [place] Oil-Black Currant-Vit E 07/10/2010 Verapamil 03/21/2004 Bupropion Hcl 10/30/2009 Makes pt sick in the stomach documented as of this encounter (statuses as of 02/03/2020) Medications Medication Sig Dispensed Refills Start Date [...] MOUTH DAILY 90 Tab 1 03/20/2018 Active furosemide (LASIX) 40 MG TabletIndications:Es sential hypertension with goal blood pressure less than 130/80 TAKE 1 TABLET BY MOUTH DAILY NEEDED FOR EDEMA 30 Tab 11 05/25/2018 Active Additional Information Patient taking differently: 80 mg Oral BID, Recently increased to 80 mg BID during recent hospital stay for CHF., Reported on 12/30/2019 10:01 AM Nebulizers (NEBULIZER COMPRESSOR) [facility] [place] via nebulizer. Use as directed. Please [...] J45.909, J44.9 225 mL 1 06/29/2019 Active atorvaSTATin (LIPITOR) 40 MG TabletIndications:Hy perlipidemia with target LDL less than 100 TAKE 1 TABLET BY MOUTH EVERY DAY 90 Tab 1 08/12/2019 Active fluticasone (FLONASE) 50 MCG/ACT nasal sprayIndications:Chr [...] Active dilTIAZem HCl ER Beads 360 MG TP30Owccijfhbwa:HTN, goal below 130/80 TAKE 1 CAPSULE BY MOUTH EVERY DAY 90 Cap 1 11/22/2019 Active HYDROcodone-acetamin ophen 5-325 mg per tab 5-325 MG per tabletIndications:Ge neralized osteoarthritis Take 1 Tab by mouth every 6 hours as needed for Pain, Mild. 120 Tab 0 12/06/2019 Active guaiFENesin-codeine (ROBITUSSIN AC) 100-10 MG/5ML solution [...] 2017 classification ([facility]) Inhale 1 Puff by mouth daily. 30 Each 1 12/30/2019 Active Lancets MISCIndications:Type 2 diabetes mellitus with hemoglobin A1c goal of less than 7.0% ([facility]) Use as directed. USE TO TEST BLOOD SUGAR 3 TIMES A DAY FOR DIAGNOSIS CODE OF E11.9 300 Each 1 01/05/2020 Active Glucose Blood ([employer] CONTOUR TEST) STRPIndications:Type 2 diabetes mellitus with hemoglobin A1c goal of less than 7.0% ([facility]) USE TO TEST BLOOD SUGAR 3 [...] A DAY 12 g 3 01/14/2020 Active documented as of this encounter (statuses as of 02/03/2020) Active Problems Problem Noted Date Morbid obesity [...] as of this encounter (statuses as of 02/03/2020) Resolved Problems Problem Noted Date Resolved Date [...] Hypoxemia 10/08/2011 10/30/2015 Genetic Sleep Disorder Research Other*[id number] 07/25/2011 05/15/2016 Diverticulitis of colon 07/25/2011 01/06/20 [...] as of this encounter (statuses as of 02/03/2020) Immunizations Name Administration Dates Next Due Hepatitis [...] Specialty Care Team Description 06/06/2020 Imaging Radiology Health Maintenance Due Date Last Done Comments Zoster Vaccines (2 of 3) 08/31/2012 07/06/2012 DIABETES-HGBA1C EVERY 6 MONTHS 02/24/2020 08/26/2019, 08/12/2019, 03/22/2019, Additional history exists DXA-EVERY 5 YRS-USE SMARTSET# [id number] TO ORDER [...] Priority Date/Time Associated Diagnosis Comments CHEMISTRY-OUTSIDE Routine 02/02/2020 TSH Routine 02/02/2020 documented in this encounter Results * TSH (02/02/2020) TSH - OUTSIDE LAB 0.237(A) 0.360 - 3.740 MIU/ML OUTSIDE LAB (SEE SCANNED REPORT) Specimen Narrative Performed At Performing Organization Address [facility]/State[facility] Phone Number OUTSIDE LAB (SEE SCANNED REPORT) * CHEMISTRY-OUTSIDE (02/02/2020) CREATININE-OUTSIDE LAB 1.00 0.55 - 1.02 MG/DL OUTSIDE LAB (SEE SCANNED REPORT) GFR ESTIMATED-OUTSIDE LAB 57(A) >60 ML/MIN OUTSIDE LAB (SEE SCANNED REPORT) POTASSIUM-OUTSIDE LAB 3.4(A) 3.5 - 5.1 MMOL/L OUTSIDE LAB (SEE SCANNED REPORT) GLUCOSE-OUTSIDE LAB 153(A) 70 - 110 MG/DL OUTSID E LAB [...] LAB OUTSIDE LAB (SEE SCANNED REPORT) HEMOGLOBIN, C2B-RTAAPBU LAB 7.3(A) 3.5 - 5.6 % OUTSIDE LAB (SEE SCANNED REPORT) PHOSPHORUS-OUTSIDE LAB OUTSIDE LAB (SEE SCANNED REPORT) PTH-OUTSIDE LAB OUTSIDE LAB (SEE SCANNED REPORT) MICROALBUMIN RATIO-OUTSIDE LAB OUTSIDE LAB (SEE SCANNED REPORT) PROTEIN, UA-OUTSIDE LAB OUTSIDE LAB (SEE SCANNED REPORT) HEMOGLOBIN-OUTSIDE LAB 11.8(A) 12.0 - 16.0 G/DL OUTSIDE LAB (SEE SCANNED REPORT) CHEMISTRY COMMENT-OUTSIDE LAB Comment:CBC/DI FF, CMP, HGBA1C, TSH OUTSIDE LAB (SEE SCANNED REPORT) Specimen Narrative Performed At Performing Organization Address City/State/[place] e Phone Number OUTSIDE LAB (SEE SCANNED REPORT) documented in this encounter Advance Directives Documents on File Type Date Recorded 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
--- OUTSIDE RECORDS SUMMARY | 2023-06-18 03:27 | External Medical Summary | Summary of Care ---
Author Name Unknown Organization [place] [address] Care Team Providers Care Production Bow Maker Name Role Phone Marcela Pinto MD Primary Care Provider [phone] Reason for Visit * Reason Comments Scheduling Follow up after Tele med Encounter Details Date Type Department Care Team Description 02/04/2020 Telephone General Internal Medicine [facility] [address] [place], [place] [id number] Marcela Pinto MD [address] [place] [address] [phone] Scheduling (Follow up after Telemed) Allergies Active Allergy Reactions Severity Noted Date Comments Valsartan 07/10/2010 Enalapril 05/21/2006 Escitalopram Oxalate Nausea/vomiting 10/11/2009 Nauseated Iodinated Diagnostic Agents Nausea/vomiting 05/2010 IV Contrast Lisinopril 05/21/2006 Metoprolol Tartrate 11/18/2006 Made pulse low [place] Oil-Black Currant-Vit E 07/10/2010 Verapamil 03/21/2004 Bupropion Hcl 10/30/2009 Makes pt sick in the stomach documented as of this encounter (statuses as of 02/08/2020) Medications Medication Sig Dispensed Refills Start Date [...] 1 03/20/2018 Active furosemide (LASIX) 40 MG TabletIndications:E ssential hypertension with goal blood pressure less than 130/80 TAKE 1 TABLET BY MOUTH DAILY NEEDED FOR EDEMA 30 Tab 11 05/25/2018 Active Additional Information Patient taking differently: 80 mg Oral BID, Recently increased to 80 mg BID during recent hospital stay for CHF., Reported on 12/30/2019 10:01 AM Nebulizers (NEBULIZER COMPRESSOR) [facility] Inhale via nebulizer. Use as directed. Please give tubing to use with it. 1 Each 1 11/12/2018 Active ondansetron ODT (ZOFRAN) 8 MG TBDPIndications:David sea DISSOLVE 1 TABLET ON TONGUE EVERY 8 HOURS NEEDED FOR NAUSEA 60 Tab 5 11/24/2018 Active glimepiride (AMARYL) 4 MG TabletIndications:T ype 2 diabetes mellitus with hemoglobin A1c goal of less than 7.5% ([facility]) Take 4 mg by mouth daily [...] 1 06/29/2019 Active atorvaSTATin (LIPITOR) 40 MG TabletIndications:H yperlipidemia with target LDL less than 100 TAKE 1 TABLET BY MOUTH EVERY DAY 90 Tab 1 08/12/2019 Active fluticasone (FLONASE) 50 MCG/ACT nasal sprayIndications:Ch ronic maxillary sinusitis,Otalgia of both ears Administer 2 Sprays into each nostril daily. 1 Bottle 11 08/26/2019 Active omeprazole (PRILOSEC) 20 MG CPDRIndications:Isc hemic colitis (HCC) TAKE 1 CAPSULE BY MOUTH TWICE A DAY 180 Cap 1 09/15/2019 Active zafirlukast (ACCOLATE) 20 MG TabletIndications:A sthma [...] Active dilTIAZem HCl ER Beads 360 MG RC03Fqqvujcapfy:HTN , goal below 130/80 TAKE 1 CAPSULE [...] 12/30/2019). 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 30 Each 1 12/30/2019 Active Lancets MISCIndications:Typ e 2 diabetes mellitus with hemoglobin A1c goal of less than 7.0% ([facility]) Use as directed. USE TO TEST BLOOD SUGAR 3 TIMES A DAY FOR DIAGNOSIS CODE OF E11.9 300 Each 1 01/05/2020 Active Glucose Blood ([employer] CONTOUR TEST) STRPIndications:Typ e 2 diabetes mellitus [...] A DAY 12 g 3 01/14/2020 Active HYDROcodone-acetami nophen 5-325 mg per tab 5-325 MG per tabletIndications:G eneralized osteoarthritis Take 1 Tab by mouth every 6 hours as needed for Pain, Mild. 120 Tab 0 12/06/2019 0 Discontinu ed(Refill) documented as of this encounter (statuses as of 02/08/2020) Active Problems Problem Noted Date Morbid obesity [...] as of this encounter (statuses as of 02/08/2020) Resolved Problems Problem Noted Date Resolved Date [...] Hypoxemia 10/08/2011 10/30/2015 Genetic Sleep Disorder Research Other*[id number] 07/25/2011 05/15/2016 Diverticulitis of colon 07/25/2011 01/06/20 [...] as of this encounter (statuses as of 02/08/2020) Immunizations Name Administration Dates Next Due Hepatitis [...] Telephone Encounter - Marcela Pinto MD - 02/08/2020 1:31 PM EDT Recent labs shows low but improvement in the kidney function with GFR of 57. Continue hydration andavoid NSAIDs. Continue working on low-salt diet. Patient's potassium is borderline low and she can eat food which is high in potassium including banana, moderate amount of orange juice, potatoes, nuts, green leafy vegetables, mushrooms etc. TSH is lower than normal that means she may have excessive mom amount of thyroid hormone in the system. I do not see levothyroxine in the system but still confirm whether she takes any thyroid medication or not. Please find out whether she has any palpitation, diarrhea, insomnia, excessively dry skin etcas a new symptoms or not. We can refer her for Tele Endocrine consultation to rule out Hyperthyroidism. Repeat TSH, T4 in 2 months from now. * Telephone Encounter - Elenita Nichole OSA - 02/07/2020 11:03 AM EDT Appt scheduled for six month return. Pt is asking the results from recent labs. Please contact Her regarding this matter. * Telephone Encounter - Viola Barone OSA - 02/04/2020 2:28 PM EDT Please call pt. To schedule a [address] 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
--- OUTSIDE RECORDS SUMMARY | 2023-06-18 03:27 | External Medical Summary | Summary of Care ---
Author Name Unknown Organization [place] [address] Care Team Providers Care Library Circulation Clerk Name Role Phone Marcela Pinto MD Primary Care Provider [phone] Reason for Visit * Reason Comments Order Request verbal Encounter Details Date Type Department Care Team Description 12/28/2019 Telephone General Internal Medicine [facility] [address] [place] [address] Marcela Pinto MD [address] [place] [address] [phone] Order Request (verbal) Allergies Active Allergy Reactions Severity Noted Date Comments Valsartan 07/10/2010 Enalapril 05/21/2006 Escitalopram Oxalate Nausea/vomiting 10/11/2009 Nauseated Iodinated Diagnostic Agents Nausea/vomiting 05/2010 IV Contrast Lisinopril 05/21/2006 Metoprolol Tartrate 11/18/2006 Made pulse low [place] Oil-Black Currant-Vit E 07/10/2010 Verapamil 03/21/2004 Bupropion Hcl 10/30/2009 Makes pt sick in the stomach documented as of this encounter (statuses as of 01/25/2020) Medications Medication Sig Dispensed Refills Start Date [...] 1 03/20/2018 Active furosemide (LASIX) 40 MG TabletIndications:Ess ential hypertension with goal blood pressure less than 130/80 TAKE 1 TABLET BY MOUTH DAILY NEEDED FOR EDEMA 30 Tab 11 05/25/2018 Active Additional Information Patient taking differently: 80 mg Oral BID, Recently increased to 80 mg BID during recent hospital stay for CHF., Reported on 12/30/2019 10:01 AM Nebulizers (NEBULIZER COMPRESSOR) [facility] Inhale via nebulizer. Use as directed. Please give tubing to use with it. 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 1 Bottle 11 08/26/2019 Active omeprazole (PRILOSEC) 20 MG CPDRIndications:Ische kade colitis (HCC) TAKE 1 CAPSULE BY MOUTH TWICE A DAY 180 Cap 1 09/15/2019 Active zafirlukast (ACCOLATE) 20 MG TabletIndications:Ast hma with severity to be determined TAKE 1 [...] 1 10/19/2019 Active dicyclomine (BENTYL) 20 MG TabletIndications:Chr onic constipation TAKE 1 TABLET BY MOUTH EVERY DAY 90 Tab 2 11/01/2019 Active dilTIAZem HCl ER Beads 360 MG [id number]:HTN, goal below 130/80 TAKE 1 CAPSULE BY MOUTH EVERY DAY 90 Cap 1 11/22/2019 Active HYDROcodone-acetamino phen 5-325 mg per tab 5-325 MG per tabletIndications:Gen eralized osteoarthritis Take 1 Tab by mouth every 6 hours as needed for Pain, Mild. 120 Tab 0 12/06/2019 Active documented as of this encounter (statuses as of 01/25/2020) Active Problems Problem Noted Date Morbid obesity [...] 140/90 12/18/2015 Overview: Per HTN Protocol #27. Incisional hernia 10/08/2012 Nocturnal hypoxia 10/02/2011 Overview: 09/27/11 Nocturnal pulse [...] as of this encounter (statuses as of 01/25/2020) Resolved Problems Problem Noted Date Resolved Date Body mass index (BMI) of 40.0 to 44.9 in adult 1 10/28/2019 Overview: Per Obesity protocol #1 Lower GI bleed 04/21/2017 01/05/2019 Severe obesity with body mas s index (BMI) of 35.0 to 39.9 with serious comorbidity 05/15/2016 08/28/2018 Overview: ICD-10 update of inactive diagnosis DM (diabetes mellitus), type 2 08/07/2015 0 06/25/2017 Nausea 09/05/2012 06/25/2017 Overview: ICD-10 update of inactive term HTN, GOAL BELOW 140/80 06/01/2012 6 Overview: Per HTN Protocol #27. Hypoxemia 10/08/2011 10/30/2015 Genetic Sleep Disorder Research Other*[id number] 07/25/2011 05/15/2016 Diverticulitis of colon 07/25/2011 01/06/20 [...] as of this encounter (statuses as of 01/25/2020) Immunizations Name Administration Dates Next Due Hepatitis [...] have Coronavirus / COVID-19? No / Unsure 12/30/2019 9:53 AM EDT documented as of this encounter Miscellaneous Notes * Telephone Encounter - Alize Baeza LPN - 12/28/2019 11:18 AM EDT Nieves from [facility] calling in. Asking for a verbal for a STATIONARY BOILER FIREMAN to assist pt with baths, etc. Also wanted to let PCP know that pt has been c/o feeling cold, but clammy. No fevers, BS within normal range. States she thinks this started shortly after she got her Watchman device. Thanks! 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
--- OUTSIDE RECORDS SUMMARY | 2023-06-18 03:27 | External Medical Summary | Summary of Care ---
Author Name Unknown Organization [place] [address] Care Team Providers Care Copper Plate Printer Name Role Phone Marcela Pinto MD Primary Care Provider [phone] Reason for Referral * Evaluate & Treat - Unlimited Visits (Within 30 days (routine)) Status Reason Specialty Diagnoses / Procedures Referred By Contact Referred To Contact Pending Review Specialty Services Required Endocrinology/M etabolism Diagnoses Abnormal thyroid blood test Marcela Pinto MD [address] [place] [address] Reason for Visit * Reason Comments Scheduling Follow up after Tele med Encounter Details Date Type Department Care Team Description 02/04/2020 Telephone General Internal Medicine [facility] [address] [place] [address] aMrcela Pinto MD [address] [place] [address] [phone] Scheduling (Follow up after Telemed) Allergies Active Allergy Reactions Severity Noted Date Comments Valsartan 07/10/2010 Enalapril 05/21/2006 Escitalopram Oxalate Nausea/vomiting 10/11/2009 Nauseated Iodinated Diagnostic Agents Nausea/vomiting 05/2010 IV Contrast Lisinopril 05/21/2006 Metoprolol Tartrate 11/18/2006 Made pulse low [place] Oil-Black Currant-Vit E 07/10/2010 Verapamil 03/21/2004 Bupropion [...] on 12/30/2019 10:01 AM Nebulizers (NEBULIZER COMPRESSOR) [facility] Inhale via nebulizer. [...] Active dilTIAZem HCl ER Beads 360 MG [id number]:HTN , goal below 130/80 TAKE 1 CAPSULE [...] 12/30/2019). 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 [...] goal of less than 7.0% ([facility]) USE TO TEST BLOOD SUGAR 3 TIMES A DAY FOR DIAGNOSIS CODE OF E11.9 300 Strip 1 01/05/2020 Active Blood Glucose Monitoring Suppl (CONTOUR MONITOR) w/Device KIT USE TO TEST BLOOD SUGAR 3 TIMES A DAY FOR DIAGNOSIS CODE OF E11.9 1 Kit 0 01/05/2020 Active COMBIVENT RESPIMAT 20-100 MCG/ACT InhalerIndications: Asthma with severity to be determined,COPD, moderate ([facility]) TAKE 1 PUFF BY MOUTH 4 [...] Hypoxemia 10/08/2011 10/30/2015 Genetic Sleep Disorder Research Other*[id number] 07/25/2011 05/15/2016 Diverticulitis of colon 07/25/2011 01/06/20 [...] encounter Miscellaneous Notes * Addendum Note - Belia Gu LPN - 02/08/2020 1:40 PM EDT Addended by: BELIA GU on: 02/08/2020 01:40 PM Modules accepted: Orders * Telephone Encounter - Belia Gu LPN - 02/08/2020 1:39 PM EDT Patient is NOT taking any thyroid medication, will comply with having labs. Please contact patient for televideo for endocrine. Thank you * Telephone Encounter - Marcela [...] Visit Internal Medicine Marcela Pinto MD [address] [place] [address] [phone] Scheduled Orders Name Type Priority Associated Diagnoses Orde r Schedule TSH Lab Routine Other specified disorders of thyroid Abnormal thyroid blood test Expected: 02/08/2020 (Approximate), Expires: 02/07/2021 T4, FREE Lab Routine Disorder of thyroid, unspecified Abnormal thyroid blood test Expected: 02/08/2020 (Approximate), Expires: 02/07/2021 Scheduled Referrals Name Type Priority Associated Diagnoses Order Schedule ENDOCRINOLOGY REFERRAL OP Referral Within 30 days (routine) Abnormal thyroid blood test Ordered: 02/08/2020 Health Maintenance Due Date Last Done Comments [...] as of this encounter Visit Diagnoses Diagnosis Abnormal thyroid blood test- Primary Nonspecific abnormal results of thyroid function study Other specified disorders of thyroid Other specified disorders of thyroid Disorder of thyroid, unspecified documented in this encounter Advance Directives Documents on File Type Date Recorded 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
--- OUTSIDE RECORDS SUMMARY | 2023-06-18 03:27 | External Medical Summary | Summary of Care ---
Author Name Unknown Organization [place] [address] Care Team Providers Care Hazardous Materials Tanker Driver Name Role Phone Marcela Pinto MD Primary Care Provider [phone] Reason for Visit * Reason Comments Scheduling Follow up after Tele med Encounter Details Date Type Department Care Team Description 02/04/2020 Telephone General Internal Medicine [facility] [address] [place], [place] [id number] Marcela Pinto MD [address] [place] [address] [phone] Scheduling (Follow up after Telemed) Allergies Active Allergy Reactions Severity Noted Date Comments Valsartan 07/10/2010 Enalapril 05/21/2006 Escitalopram Oxalate Nausea/vomiting 10/11/2009 Nauseated Iodinated Diagnostic Agents Nausea/vomiting 05/2010 IV Contrast Lisinopril 05/21/2006 Metoprolol Tartrate 11/18/2006 Made pulse low [place] Oil-Black Currant-Vit E 07/10/2010 Verapamil 03/21/2004 Bupropion Hcl 10/30/2009 Makes pt sick in the stomach documented as of this encounter (statuses as of 02/07/2020) Medications Medication Sig Dispensed Refills Start Date [...] on 12/30/2019 10:01 AM Nebulizers (NEBULIZER COMPRESSOR) [facility] Inhale via nebulizer. Use as directed. Please [...] Active dilTIAZem HCl ER Beads 360 MG PB67Edcoxrpwkmg:HTN, goal below 130/80 TAKE 1 CAPSULE BY [...] , group B, by GOLD 2017 classification (HCC) [...] less than 7.0% ([facility]) USE TO TEST BLOOD SUGAR 3 TIMES [...] as of this encounter (statuses as of 02/07/2020) Active Problems Problem Noted Date Morbid obesity [...] as of this encounter (statuses as of 02/07/2020) Resolved Problems Problem Noted Date Resolved Date [...] Hypoxemia 10/08/2011 10/30/2015 Genetic Sleep Disorder Research Other*[id number] 07/25/2011 05/15/2016 Diverticulitis of colon 07/25/2011 01/06/20 [...] as of this encounter (statuses as of 02/07/2020) Immunizations Name Administration Dates Next Due Hepatitis [...] encounter Miscellaneous Notes * Telephone Encounter - Elenita Nichole OSA [...] Office Visit Internal Medicine Marcela Pinto MD [address] [place] [address] Health Maintenance Due Date Last Done [...] Documents on File Type Date Recorded 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
--- OUTSIDE RECORDS SUMMARY | 2023-06-18 03:27 | External Medical Summary | Summary of Care ---
Author Name Unknown Organization [place] [address] Care Team Providers Care Chin Strap Maker Name Role Phone Alex Pinto MD Primary Care Provider [phone] Reason for Referral * Medication Prior Authorization (Routine) Status Reason Specialty Diagnoses / Procedures Re ferred By Contact Referred To Contact Closed Diagnoses Generalized osteoarthritis Alex Pinto MD [address] [place] [address] Reason for Visit * Reason Comments Medication Refill Encounter Details Date Type Department Care Team Description 02/07/2020 Refill General Internal Medicine [facility] [address] [place] [address] Alex Pinto MD [address] [place] [address] [phone] GENERAL OSTEOARTHROSIS Allergies Active Allergy Reactions Severity Noted Date Comments Valsartan 07/10/2010 Enalapril 05/21/2006 Escitalopram Oxalate Nausea/vomiting 10/11/2009 Nauseated Iodinated Diagnostic Agents Nausea/vomiting 05/2010 IV Contrast Lisinopril 05/21/2006 Metoprolol Tartrate 11/18/2006 Made pulse low [place] Oil-Black Currant-Vit E 07/10/2010 Verapamil 03/21/2004 Bupropion [...] on 12/30/2019 10:01 AM Nebulizers (NEBULIZER COMPRESSOR) [facility] [...] Active dilTIAZem HCl ER Beads 360 MG [id number]:HTN , goal below 130/80 TAKE 1 CAPSULE [...] 12/30/2019). 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 30 Each 1 12/30/2019 Active Lancets MISCIndications:Typ e 2 diabetes mellitus with hemoglobin A1c goal of less than 7.0% ([facility]) Use as directed. USE TO TEST BLOOD SUGAR 3 TIMES A DAY FOR DIAGNOSIS CODE OF E11.9 300 Each 1 01/05/2020 Active Glucose Blood (eBIZ.mobility CONTOUR TEST) STRPIndications:Typ e 2 diabetes mellitus [...] Pain, Mild. 120 Tab 0 02/08/2020 Active HYDROcodone-acetami nophen 5-325 mg per tab [...] Hypoxemia 10/08/2011 10/30/2015 Genetic Sleep Disorder Research Other*[id number] 07/25/2011 05/15/2016 Diverticulitis of colon 07/25/2011 01/06/20 [...] Telephone Encounter - Alex Pinto MD - 02/08/2020 1:18 PM EDT Signed Prescriptions: Disp Refills HYDROcodone-acetaminophen 5-325 mg per tab*120 Tab0 Sig: Take 1 Tab by mouth every 6 hours as needed for Pain, Mild.Authorizing Provider: ALEX PINTO * Telephone Encounter - Nicole Saeed LPN - 02/07/2020 11:26 AM EDT Pending Prescriptions: Disp Refills HYDROcodone-acetaminophen 5-325 mg per ta*120 Tab0 Sig: Take 1 Tab by mouth every 6 hours as needed for Pain, Mild. 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 Allergic rhinitis J30.9 Nocturnal hypoxia G47.34 Sleep apnea, obstructive G47.33 ACEI/ARB contraindicated [id number] HTN, goal below 140/90 I10 Hyperlipidemia with target LDL less than 100 E78.5 Controlled substance agreement signed Z79.899 Type 2 diabetes mellitus with hemoglobin A1c goal of less than 7.5% ([facility]) E11.9 Hypercalcemia E83.52 Elevated plasma metanephrines R79.89 Irritable bowel syndrome with constipation K58.1 Ischemic colitis ([facility]) K55.9 HECTOR (generalized anxiety disorder) F41.1 COPD, group B, by GOLD 2017 classification ([facility]) J44.9 Morbid obesity with BMI of 40.0-44.9, adult ([facility]) E66.01, Z68.41 Gastro-esophageal reflux disease without esophagitis K21.9 Labs: CREATININE-OUTSIDE LAB(MG/DL) Jessica Dt/Tm Resulted Value Status 02/02/20 02/03/20 1.00 FINAL POTASSIUM-OUTSIDE LAB(MMOL/L) Jessica Dt/Tm Resulted Value Status 02/02/20 02/03/20 3.4* FINAL TSH - OUTSIDE LAB(MIU/ML) Jessica Dt/Tm Resulted Value Status 02/02/20 02/03/20 0.237* FINAL LDL (CALCULATED)-OUTSIDE LAB(MG/DL) Jessica Dt/Tm Resulted Value Status 08/12/19 08/12/19 94.80 FINAL LDL (DIRECT MEASURE)-OUTSIDE LAB(MG/DL) Jessica Dt/Tm Resulted Value Status 08/12/19 08/12/19 100 FINAL ALT(U/L) [facility] Dt/Tm Resulted Value Status 07/09/19 1:48P 07/09/19 13 FINAL Hemoglobin AIC Results: HEMOGLOBIN, [id number] LAB(%) [facility] Dt/Tm Resulted Value Status 02/02/20 02/03/20 7.3* FINAL HEMOGLOBIN, A1C(%) [facility] Dt/Tm Resulted Value Status 08/26/19 2:55P 08/26/19 6.6* FINAL HEMOGLOBIN, [id number] LAB(%) [facility] Dt/Tm Resulted Value Status 08/12/19 08/12/19 6.6* FINAL 12/06/19 documented in this encounter Plan of Treatment Upcoming Encounters Date Type Specialty Care Team Description 06/06/2020 Imaging Radiology 08/08/2020 Office Visit Internal Medicine Alex Pinto MD [address] [place] [address] [phone] Health Maintenance Due Date Last Done Comments [...] on File Type Date Recorded 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
--- OUTSIDE RECORDS SUMMARY | 2023-06-18 03:27 | External Medical Summary | Summary of Care ---
Author Name Unknown Organization [place] [address] Care Team Providers Care Layboy Tender Name Role Phone Marcela Pinto MD Primary Care Provider [phone] Reason for Visit * Reason Comments Scheduling Follow up after Tele med Encounter Details Date Type Department Care Team Description 02/04/2020 Telephone General Internal Medicine [facility] [address] [place], [place] [id number] Marcela Pinto MD [address] [place] [address] [phone] Scheduling (Follow up after Telemed) Allergies Active Allergy Reactions Severity Noted Date Comments Valsartan 07/10/2010 Enalapril 05/21/2006 Escitalopram Oxalate Nausea/vomiting 10/11/2009 Nauseated Iodinated Diagnostic Agents Nausea/vomiting 05/2010 IV Contrast Lisinopril 05/21/2006 Metoprolol Tartrate 11/18/2006 Made pulse low [place] Oil-Black Currant-Vit E 07/10/2010 Verapamil 03/21/2004 Bupropion [...] on 12/30/2019 10:01 AM Nebulizers (NEBULIZER COMPRESSOR) [facility] Inhale via nebulizer. 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
--- OUTSIDE RECORDS SUMMARY | 2023-06-18 03:27 | External Medical Summary | Summary of Care ---
Author Name Unknown Organization [place] [address] Care Team Providers Care Healthcare Social Worker Name Role Phone Marcela Pinto MD Primary Care Provider [phone] Reason for Referral * Evaluate & Treat - Unlimited Visits (Within 30 days (routine)) Status Reason Specialty Diagnoses / Procedures Referred By Contact Referred To Contact Pending Review Specialty Services Required Endocrinology/M etabolism Diagnoses Abnormal thyroid blood test Marcela Pinto MD [address] [place] [address] Reason for Visit * Reason Comments Scheduling Follow up after Tele med Encounter Details Date Type Department Care Team Description 02/04/2020 Telephone General Internal Medicine [facility] [address] [place] [address] Marcela Pinto MD [address] [place] [address] [phone] Scheduling (Follow up after Telemed) Allergies Active Allergy Reactions Severity Noted Date Comments Valsartan 07/10/2010 Enalapril 05/21/2006 Escitalopram Oxalate Nausea/vomiting 10/11/2009 Nauseated Iodinated Diagnostic Agents Nausea/vomiting 05/2010 IV Contrast Lisinopril 05/21/2006 Metoprolol Tartrate 11/18/2006 Made pulse low [place] Oil-Black Currant-Vit E 07/10/2010 Verapamil 03/21/2004 Bupropion [...] Active dilTIAZem HCl ER Beads 360 MG [id number]:HTN , goal below 130/80 TAKE 1 CAPSULE [...] 12/30/2019). 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 For the endocrinology, pt does not have internet and cannot do a video appt. Pt further stated she didn't think she would be able to get transportation to [place] for an in person visit. Contacted [facility] - scheduled pt in their first available spot, 6.29.20 at 3:[address] Pinto, is this date ok? Please advise. 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
--- OUTSIDE RECORDS SUMMARY | 2023-06-18 03:27 | External Medical Summary | Summary of Care ---
Author Name Unknown Organization [place] [address] Care Team Providers Care Bat Carrier Name Role Phone Marcela Pinto MD Primary Care Provider [phone] Encounter Details Date Type Department Care Team Description 02/22/2020 Scan Encounter Unspecified Department <No scans attached> Allergies Active Allergy Reactions Severity Noted Date Comments Valsartan 07/10/2010 Enalapril 05/21/2006 Escitalopram Oxalate Nausea/vomiting 10/11/2009 Nauseated Iodinated Diagnostic Agents Nausea/vomiting 05/2010 IV Contrast Lisinopril 05/21/2006 Metoprolol Tartrate 11/18/2006 Made pulse low [place] Oil-Black Currant-Vit E 07/10/2010 Verapamil 03/21/2004 Bupropion Hcl 10/30/2009 Makes pt sick in the stomach documented as of this encounter (statuses as of 02/24/2020) Medications Medication Sig Dispensed Refills Start Date [...] Active dilTIAZem HCl ER Beads 360 MG [id number]:HTN, goal below 130/80 TAKE 1 CAPSULE BY [...] GOLD 2017 classification ([facility]) Inhale 1 Puff by mouth [...] A MEAL 120 Tab 2 02/15/2020 Active documented as of this encounter (statuses as of 02/24/2020) Active Problems Problem Noted Date Morbid obesity [...] as of this encounter (statuses as of 02/24/2020) Resolved Problems Problem Noted Date Resolved Date [...] Hypoxemia 10/08/2011 10/30/2015 Genetic Sleep Disorder Research Other*[id number] 07/25/2011 05/15/2016 Diverticulitis of colon 07/25/2011 01/06/20 [...] as of this encounter (statuses as of 02/24/2020) Immunizations Name Administration Dates Next Due Hepatitis [...] Visit Internal Medicine Marcela Pinto MD [address] [place] [address] [phone] Health Maintenance Due Date Last Done Comments [...] on File Type Date Recorded 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
--- OUTSIDE RECORDS SUMMARY | 2023-06-18 03:27 | External Medical Summary | Summary of Care ---
Author Name Unknown Organization [place] [address] Care Team Providers Care Worm Packer Name Role Phone Marcela Pinto MD Primary Care Provider [phone] Encounter Details Date Type Department Care Team Description 02/01/2020 Telemedicine General Internal Medicine [facility] [address] [place] [address] Marcela Pinto MD [address] [place], [place] [id number] COPD, group B, by GOLD 2017 classification ([facility])*; HECTOR (generalized anxiety disorder); Gastro-esophageal reflux disease without esophagitis; Morbid obesity with BMI of 40.0-44.9, adult ([facility]); HTN, goal below 140/90; Hyperlipidemia with target LDL less than 100; Nocturnal hypoxia; Sleep apnea, obstructive; Family history of endocrine disorder; Hot flashes due to menopause; Other iron deficiency anemia Allergies Active Allergy Reactions Severity Noted Date Comments Valsartan 07/10/2010 Enalapril 05/21/2006 Escitalopram Oxalate Nausea/vomiting 10/11/2009 Nauseated Iodinated Diagnostic Agents Nausea/vomiting 05/2010 IV Contrast Lisinopril 05/21/2006 Metoprolol Tartrate 11/18/2006 Made pulse low [place] Oil-Black Currant-Vit E 07/10/2010 Verapamil 03/21/2004 Bupropion Hcl 10/30/2009 Makes pt sick in the stomach documented as of this encounter (statuses as of 02/01/2020) Medications Medication Sig Dispensed Refills Start Date [...] on 12/30/2019 10:01 AM Nebulizers (NEBULIZER COMPRESSOR) [facility] Inhale via nebulizer. Use as directed. Please [...] Active dilTIAZem HCl ER Beads 360 MG JJ60Naxwmwyjapt:HTN, goal below 130/80 TAKE 1 CAPSULE BY [...] by GOLD 2017 classification ([facility]) Inhale 1 Puff by mouth daily. 30 Each 1 12/30/2019 Active Lancets MISCIndications:Type 2 diabetes mellitus with hemoglobin A1c goal of less than 7.0% ([facility]) Use as directed. USE TO TEST BLOOD SUGAR 3 TIMES A DAY FOR DIAGNOSIS CODE OF E11.9 300 Each 1 01/05/2020 Active Glucose Blood ([facility] CONTOUR TEST) STRPIndications:Type 2 diabetes mellitus with [...] as of this encounter (statuses as of 02/01/2020) Active Problems Problem Noted Date Morbid obesity [...] as of this encounter (statuses as of 02/01/2020) Resolved Problems Problem Noted Date Resolved Date [...] Hypoxemia 10/08/2011 10/30/2015 Genetic Sleep Disorder Research Other*[id number] 07/25/2011 05/15/2016 Diverticulitis of colon 07/25/2011 01/06/20 [...] as of this encounter (statuses as of 02/01/2020) Immunizations Name Administration Dates Next Due Hepatitis [...] AM EDT documented as of this encounter Progress Notes * Marcela Pinto MD - 02/01/2020 12:30 PM EDT HPI: Nina Harrington is a 79 year old female who presents with: No chief complaint on file. After connecting to the patient via telephone, the patient was identified by name and date of . Patient was then informed that this was a telephone call only visit. The patient agreed to participate. Visit Disposition: Routine follow-up Total call duration was 21 minutes. Pt was admitted in [facility] for 10 days end of Nov. Pt was seen for hospital discharge by Sisi. Pt was diagnosed with CHF and was d/miguel on Lasix 40 mg 2 tab twice daily. Pt states now weight is stable,no swealling in legs. Has pulse ox and tries to keep her oxygen above 90. She uses oxygen all the time. 4 lit/ min duringnight and 2 lit during day time. Pt used to have respiratory therapist coming. Pt states nurse comes once a week and checks her vitals. Everything is stable so far. Decided to get labs next time. Feels fine emotionally. Pt sees Dr. Meza next week. Will check with him about the dose of the Lasix as he will see herclinically in person. 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 Allergic rhinitis J30.9 Nocturnal hypoxia G47.34 Sleep apnea, obstructive G47.33 ACEI/ARB contraindicated [id number] HTN, goal below 140/90 I10 Hyperlipidemia with target LDL less than 100 E78.5 Controlled substance agreement signed Z79.899 Type 2 diabetes mellitus with hemoglobin A1c goal of less than 7.5% ([facility]) E11.9 Hypercalcemia E83.52 Elevated plasma metanephrines R79.89 Irritable bowel syndrome with constipation K58.1 Ischemic colitis ([facility]) K55.9 HECTOR (generalized anxiety disorder) F41.1 COPD, group B, by GOLD 2017 classification ([facility]) J44.9 Morbid obesity with BMI of 40.0-44.9, adult ([facility]) E66.01, Z68.41 Gastro-esophageal reflux disease without esophagitis K21.9 Current Outpatient Medications Medication Sig Dispense Refill COMBIVENT RESPIMAT 20-100 MCG/ACT Inhaler TAKE 1 [...] by mouth every 4 hours as needed. INCRUSE ELLIPTA 62.5 MCG/INH AEPB Inhale 1 Puff by mouth daily. 30 Each 1 predniSONE (DELTASONE) 10 MG Tablet Take 10 mg by mouth daily. Takes 5 tabs for 2 days, 4 tabs for 2 days, 3 tabs for 2 days, 2 tabs for 2 days and 1 tab for 2 days. Started this regimen on 12/29/2019 so she took 5 tabs today and yesterday (as of today, 12/30/2019). HYDROcodone-acetaminophen 5-325 mg per tab 5-325 MG per tablet Take 1 Tab by mouth every 6 hours asneeded for Pain, Mild. 120 Tab 0 dilTIAZem HCl ER Beads 360 MG CP24 TAKE 1 CAPSULE BY MOUTH EVERY DAY 90 Cap 1 dicyclomine (BENTYL) 20 MG Tablet TAKE 1 TABLET BY MOUTH EVERY DAY 90 Tab 2 doxycycline 100 MG Tablet Take 100 mg by mouth 2 times a day. 4 zoster vac recomb adjuvanted (SHINGRIX) 50 MCG/0.5ML injection Inject 0.5 mL into a large muscle now and repeat dose in 60 to 180 days. Please fax date this was given to our office. 1 Each 1 zafirlukast (ACCOLATE) 20 MG Tablet TAKE 1 TABLET BY MOUTH EVERY DAY 90 Tab 1 omeprazole (PRILOSEC) 20 MG CPDR TAKE 1 CAPSULE BY MOUTH TWICE A DAY 180 Cap 1 fluticasone (FLONASE) 50 MCG/ACT nasal spray Administer 2 Sprays into each nostril daily. 1 Bottle 11 atorvaSTATin (LIPITOR) 40 MG Tablet TAKE 1 TABLET BY MOUTH EVERY DAY 90 Tab 1 albuterol sulfate (PROVENTIL) (2.5 MG/3ML) 0.083% [...] mouth daily before breakfast. 90 Tab 3 ondansetron ODT (ZOFRAN) 8 MG TBDP DISSOLVE 1 TABLET ON TONGUE EVERY 8 HOURS NEEDED FOR NAUSEA 60 Tab 5 Nebulizers (NEBULIZER COMPRESSOR) MISC Inhale via nebulizer. Use as directed. Please give tubing to use with it. 1 Each 1 furosemide (LASIX) 40 MG Tablet TAKE 1 TABLET BY MOUTH DAILY NEEDED FOR EDEMA (Patient taking differently: Take 80 mg by mouth 2 times a day. 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 OBJECTIVE: Not done. PHYSICAL EXAM: Not done. ASSESSMENT AND PLAN: COPD, group B, by GOLD 2017 classification ([facility]) (Primary) Continue current inhalers HECTOR (generalized anxiety disorder) Gastro-esophageal reflux disease without esophagitis Advised pt to avoid caffeine, fried fatty foods, choclates, peppermints, smoking and alcohol. Exercise and weight loss emphasized. Eat dinner 3 hours prior to bed time. Morbid obesity with BMI of 40.0-44.9, adult ([facility]) HTN, goal below 140/90 Well controlled. Hyperlipidemia with target LDL less than 100 Continue current statin medication, low-fat diet discussed with the patient. Nocturnal hypoxia Uses oxygen 4 lit /min. Sleep apnea, obstructive Doesn't use Cpap. Family history of endocrine disorder - HEMOGLOBIN A1C; Future; Expected date: 02/01/2020 - COMPR METAB PANEL; Future; Expected date: 02/02/2020 - TSH WITH FREE T4 IF INDICATED; Future; Expected date: 02/01/2020 Hot flashes due to menopause Other iron deficiency anemia - CBC/DIFF; Future; Expected date: 02/02/2020 DM On Amaryl. Diet portion control discussed with the patient. Marcela Pinto MD documented in this encounter Plan of Treatment Upcoming Encounters Date Type Specialty Care Team Description 06/06/2020 Imaging Radiology Scheduled Orders Name Type Priority Associated Diagnoses Orde r Schedule HEMOGLOBIN A1C Lab Routine Family history of endocrine disorder Expected: 02/01/2020 (Approximate), Expires: 01/31/2021 COMPR METAB PANEL Lab Routine Family history of endocrine disorder Expected: 02/02/2020, Expires: 01/31/2021 CBC/DIFF Lab Routine Other iron deficiency anemia Expected: 02/02/2020, Expires: 01/31/2021 TSH WITH FREE T4 IF INDICATED Lab Routine Family history of endocrine disorder Expected: 02/01/2020 (Approximate), Expires: 01/31/2021 Health Maintenance Due Date Last Done Comments [...] B, by GOLD 2017 classification (HCC)- Primary HECTOR (generalized anxiety disorder) Generalized anxiety disorder Gastro-esophageal reflux disease without esophagitis Esophageal reflux Morbid obesity with BMI of 40.0-44.9, adult (HCC) Morbid obesity HTN, goal below 140/90 Unspecified essential hypertension Hyperlipidemia with target LDL less than 100 Other and unspecified hyperlipidemia Nocturnal hypoxia Hypoxemia Sleep apnea, obstructive Obstructive sleep apnea (adult) (pediatric) Family history of endocrine disorder Family history of other endocrine and metabolic diseases Hot flashes due to menopause Other iron deficiency anemia documented in this encounter Advance Directives Documents on File Type Date Recorded Patient Channel Development Manager 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
--- OUTSIDE RECORDS SUMMARY | 2023-06-18 03:27 | External Medical Summary | Summary of Care ---
Author Name Unknown Organization [place] [address] Care Team Providers Care Food Service Tray Attendant Name Role Phone Marcela Pinto MD Primary Care Provider [phone] Reason for Referral * Evaluate & Treat - Unlimited Visits (Within 30 days (routine)) Status Reason Specialty Diagnoses / Procedures Referred By Contact Referred To Contact Pending Review Specialty Services Required Endocrinology/M etabolism Diagnoses Abnormal thyroid blood test Marcela Pinto MD [address] [place] [address] Reason for Visit * Reason Comments Scheduling Follow up after Tele med Encounter Details Date Type Department Care Team Description 02/04/2020 Telephone General Internal Medicine [facility] [address] [place] [address] Marcela Pinto MD [address] [place] [address] [phone] Scheduling (Follow up after Telemed) Allergies Active Allergy Reactions Severity Noted Date Comments Valsartan 07/10/2010 Enalapril 05/21/2006 Escitalopram Oxalate Nausea/vomiting 10/11/2009 Nauseated Iodinated Diagnostic Agents Nausea/vomiting 05/2010 IV Contrast Lisinopril 05/21/2006 Metoprolol Tartrate 11/18/2006 Made pulse low [place] Oil-Black Currant-Vit E 07/10/2010 Verapamil 03/21/2004 Bupropion [...] Active dilTIAZem HCl ER Beads 360 MG DL04Ryqpyoazpsz:HTN , goal below 130/80 TAKE 1 CAPSULE [...] 12/30/2019). 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 30 [...] Hypoxemia 10/08/2011 10/30/2015 Genetic Sleep Disorder Research Other*[id number] 07/25/2011 05/15/2016 Diverticulitis of colon 07/25/2011 01/06/20 [...] Encounter - Marcela Pinto MD - 02/08/2020 4:14 PM EDT That should be fine Cherri. Thanks. * Telephone Encounter - Elenita Nichole OSA - 02/08/2020 3:47 PM EDT 6 mo appt w pcp is scheduled. For the endocrinology, pt does not have internet and cannot do a video appt. Pt further stated she didn't think she would be able to get transportation to [place] for an in person visit. Contacted [facility] - scheduled pt in their first available spot, 6.. at 3:[address] Pinto, is this date ok? Please advise. 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
--- OUTSIDE RECORDS SUMMARY | 2023-06-18 03:28 | External Medical Summary | Summary of Care ---
Author Name Unknown Organization [place] [address] Care Team Providers Care Corporation Officer Name Role Phone Alex Pinto MD Primary Care Provider [phone] Reason for Visit * Reason Comments Medication Question Encounter Details Date Type Department Care Team Description 12/30/2019 Telephone General Internal Medicine [facility] [address] [place] [address] Alex Pinto MD 200 [place] [address] Medication Question Allergies Active Allergy Reactions Severity Noted Date Comments Valsartan 07/10/2010 Enalapril 05/21/2006 Escitalopram Oxalate Nausea/vomiting 10/11/2009 Nauseated Iodinated Diagnostic Agents Nausea/vomiting 05/2010 IV Contrast Lisinopril 05/21/2006 Metoprolol Tartrate 11/18/2006 Made pulse low [place] Oil-Black Currant-Vit E 07/10/2010 Verapamil 03/21/2004 Bupropion Hcl 10/30/2009 Makes pt sick in the stomach documented as of this encounter (statuses as of 01/05/2020) Medications Medication Sig Dispensed Refills Start Date [...] on 12/30/2019 10:01 AM Nebulizers (NEBULIZER COMPRESSOR) [facility] [...] before breakfast. 90 Tab 3 01/05/2019 Active COMBIVENT RESPIMAT 20-100 MCG/ACT InhalerIndications: Asthma with severity to be determined,COPD, moderate (HCC) TAKE 1 PUFF BY MOUTH 4 TIMES A DAY 4 g 11 03/30/2019 Active docusate sodium (COLACE) 100 MG Capsule [...] Active dilTIAZem HCl ER Beads 360 MG KY70Rkekttclifh:HTN , goal below 130/80 TAKE 1 CAPSULE BY MOUTH EVERY DAY 90 Cap 1 11/22/2019 Active HYDROcodone-acetami nophen 5-325 mg per tab [...] 12/30/2019). 0 Active INCRUSE ELLIPTA 62.5 MCG/INH AEPBIndications:SCREEN CLEANER D, group B, by GOLD 2017 classification ([facility]) Inhale 1 Puff by mouth daily. [...] OF E11.9 1 Kit 0 01/05/2020 Active Glucose Blood (YEIMY CONTOUR TEST) STRPIndications:Typ e 2 diabetes mellitus with hemoglobin A1c goal of less than 7.0% ([facility]) USE TO TEST BLOOD SUGAR 3 TIMES A DAY FOR DIAGNOSIS CODE OF E11.9 100 Strip 11 12/30/2019 0 Discontinu ed(Refill) Lancets MISCIndications:Typ e 2 diabetes mellitus with hemoglobin A1c goal of less than 7.0% ([facility]) Use as directed. Tests BG 3 XD 100 Each 11 12/30/2019 0 Discontinu ed(Refill) documented as of this encounter (statuses as of 01/05/2020) Active Problems Problem Noted Date Morbid obesity [...] as of this encounter (statuses as of 01/05/2020) Resolved Problems Problem Noted Date Resolved Date [...] Hypoxemia 10/08/2011 10/30/2015 Genetic Sleep Disorder Research Other*[id number] 07/25/2011 05/15/2016 Diverticulitis of colon 07/25/2011 01/06/20 [...] as of this encounter (statuses as of 01/05/2020) Immunizations Name Administration Dates Next Due Hepatitis [...] Addendum Note - Alex Pinto MD - 01/05/2020 1:01 PM EDT Addended by: ALEX PINTO on: 01/05/2020 01:01 PM Modules accepted: Orders * Addendum Note - Belia Gu LPN - 01/05/2020 12:36 PM EDT Addended by: BELIA GU on: 01/05/2020 12:36 PM Modules accepted: Orders * Addendum Note - Rad Multani LPN - 01/05/2020 12:32 PM EDT Addended by: RAD MULTANI on: 01/05/2020 12:32 PM Modules accepted: Orders * Telephone Encounter - Rad Multani LPN - 01/05/2020 12:26 PM EDT Pt calling in. States that provider was to send in new orders for glucometer, test strips and lancets to [facility] at 12/29 OV. Pharmacy told her that they did not received the Rx. Pt is asking for prescriptions to be re-sent. Uses Yeimy Contour. Pended per your approval. * Addendum Note - Michelle Thao LPN - 01/03/2020 9:28 AM EDT Addended by: MICHELLE THAO on: 01/03/2020 09:28 AM Modules accepted: Orders * Telephone Encounter - Michelle Thao LPN - 01/03/2020 9:20 AM EDT Received fax from [facility] Pharm[facility] #[id number] , with updates that Medicare Part B will only pay for BG testing 3 times per day if on insulin and only once per day is not insulin dependent for the Contour test strips and that the brand of lancets needs to match the Contour brand BG meter and the frequency of testing limitation also applies to the lancets. Will forward to Dr. Pinto to please advise. * Telephone Encounter - Kimberly Hector LPN - 12/30/2019 2:23 PM EDT Pt called to verify that glucose testing supplies were sent to the pharmacy. Pt made aware the rx were sent to the pharmacy this am. 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
--- OUTSIDE RECORDS SUMMARY | 2023-06-18 03:28 | External Medical Summary | Summary of Care ---
Author Name Unknown Organization [place] [address] Care Team Providers Care Neonatal Doctor Name Role Phone Marcela Pinto MD Primary Care Provider [phone] Encounter Details Date Type Department Care Team Description 12/31/2019 Orders Only General Internal Medicine [facility] [address] [address] [place], [place] [id number] Marcela Pinto MD [address] [facility] [place], [place] [id number] Allergies Active Allergy Reactions Severity Noted Date Comments Valsartan 07/10/2010 Enalapril 05/21/2006 Escitalopram Oxalate Nausea/vomiting 10/11/2009 Nauseated Iodinated Diagnostic Agents Nausea/vomiting 05/2010 IV Contrast Lisinopril 05/21/2006 Metoprolol Tartrate 11/18/2006 Made pulse low [place] Oil-Black Currant-Vit E 07/10/2010 Verapamil 03/21/2004 Bupropion Hcl 10/30/2009 Makes pt sick in the stomach documented as of this encounter (statuses as of 12/31/2019) Medications Medication Sig Dispensed Refills Start Date [...] on 12/30/2019 10:01 AM Nebulizers (NEBULIZER COMPRESSOR) [facility] Inhale via nebulizer. Use as [...] 3 01/05/2019 Active COMBIVENT RESPIMAT 20-100 MCG/ACT InhalerIndications:A sthma [...] Active dilTIAZem HCl ER Beads 360 MG [id number]:HTN, goal below 130/80 TAKE 1 CAPSULE BY [...] GOLD 2017 classification ([facility]) Inhale 1 Puff by mouth daily. 30 Each 1 12/30/2019 Active Glucose Blood (YEIMY CONTOUR TEST) STRPIndications:Type 2 diabetes mellitus with hemoglobin A1c goal of less than 7.0% ([facility]) USE TO TEST BLOOD SUGAR 3 TIMES A DAY FOR DIAGNOSIS CODE OF E11.9 100 Strip 11 12/30/2019 Active Lancets MISCIndications:Type 2 diabetes mellitus with hemoglobin A1c goal of less than 7.0% ([facility]) Use as directed. Tests BG 3 XD 100 Each 11 12/30/2019 Active documented as of this encounter (statuses as of 12/31/2019) Active Problems Problem Noted Date Morbid obesity [...] as of this encounter (statuses as of 12/31/2019) Resolved Problems Problem Noted Date Resolved Date [...] Hypoxemia 10/08/2011 10/30/2015 Genetic Sleep Disorder Research Other*[id number] 07/25/2011 05/15/2016 Diverticulitis of colon 07/25/2011 01/06/20 [...] as of this encounter (statuses as of 12/31/2019) Immunizations Name Administration Dates Next Due Hepatitis [...] Visit Internal Medicine Marcela Pinto MD 200 [facility], [place] [address] 06/06/2020 Imaging Radiology Health Maintenance Due Date [...] Priority Date/Time Associated Diagnosis Comments CHEMISTRY-OUTSIDE Routine 12/18/2019 XR CHEST 1 VIEW Routine 12/09/2019 documented in this encounter Results * CHEMISTRY-OUTSIDE (12/18/2019) CREATININE-OUTSIDE LAB 1.02 0.7 - 1.2 MG/DL OUTSIDE LAB (SEE SCANNED REPORT) GFR ESTIMATED-OUTSIDE LAB 52 ML/MIN OUTSIDE LAB (SEE SCANNED REPORT) POTASSIUM-OUTSIDE LAB 3.3(A) 3.6 - 5.0 MMOL/L OUTSIDE LAB (SEE SCANNED REPORT) GLUCOSE-OUTSIDE LAB 155(A) 70 - 99 MG/DL OUTSIDE LAB (SEE SCANNED REPORT) HOURS FASTING OUTSIDE LAB (S EE SCANNED REPORT) TRIGLYCERIDES-OUTSIDE LAB OUTSIDE LAB (SEE SCANNED REPORT) CHOLESTEROL-OUTSIDE LAB OUTSIDE LAB (SEE SCANNED REPORT) HDL-OUTSIDE LAB OUTSIDE LAB (SEE SCANNED REPORT) CHOL/HDL RATIO-OUTSIDE LAB OUTSIDE LAB (SEE SCANNED REPORT) LDL (CALCULATED)-OUTSIDE LAB OUTSIDE LAB (SEE SCANNED REPORT) LDL (DIRECT MEASURE)-OUTSIDE LAB OUTSIDE LAB (SEE SCANNED REPORT) HEMOGLOBIN, A8Z-[id number] LAB OUTSIDE LAB (SEE SCANNED REPORT) PHOSPHORUS-OUTSIDE LAB OUTSIDE LAB (SEE SCANNED REPORT) PTH-OUTSIDE LAB OUTSIDE LAB (SEE SCANNED REPORT) MICROALBUMIN RATIO-OUTSIDE LAB OUTSIDE LAB (SEE SCANNED REPORT) PROTEIN, UA-OUTSIDE LAB OUTSIDE LAB (SEE SCANNED REPORT) HEMOGLOBIN-OUTSIDE LAB 10.5(A) 12 - 15.2 G/DL OUTSIDE LAB (SEE SCANNED REPORT) CHEMISTRY COMMENT-OUTSIDE LAB Comment:SEE SCAN - CBC,CHEM,MAGNE SIUM OUTSIDE LAB (SEE SCANNED REPORT) Specimen Narrative Performed At Performing Organization Address City/State/Zipcod e Phone Number OUTSIDE LAB (SEE SCANNED REPORT) * XR CHEST 1 VIEW (12/09/2019) Specimen Narrative Performed At Performing Organization Address City/State/Zipcod e Phone Number OUTSIDE LAB (SEE SCANNED REPORT) documented in this encounter Advance Directives Documents on File Type Date Recorded Patient 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
--- OUTSIDE RECORDS SUMMARY | 2023-06-18 03:28 | External Medical Summary | Summary of Care ---
Author Name Unknown Organization [place] [address] Care Team Providers Care Assistant Center Manager Name Role Phone Marcela Pinto MD Primary Care Provider [phone] Encounter Details Date Type Department Care Team Description 12/18/2019 Scan Encounter Unspecified Department <No scans attached> Allergies Active Allergy Reactions Severity Noted Date Comments Valsartan 07/10/2010 Enalapril 05/21/2006 Escitalopram Oxalate Nausea/vomiting 10/11/2009 Nauseated Iodinated Diagnostic Agents Nausea/vomiting 05/2010 IV Contrast Lisinopril 05/21/2006 Metoprolol Tartrate 11/18/2006 Made pulse low [place] Oil-Black Currant-Vit E 07/10/2010 Verapamil 03/21/2004 Bupropion [...] 10:01 AM Nebulizers (NEBULIZER COMPRESSOR[place] [facility] [place]bulizer. Use as directed. Please [...] 3 01/05/2019 Active COMBIVENT RESPIMAT 20-100 MCG/ACT InhalerIndications:As thma with severity to be determined,COPD, moderate (HCC) [...] 08/12/2019 Active fluticasone (FLONASE) 50 MCG/ACT nasal sprayIndications:Supervisor Pipe Finishing akin maxillary sinusitis,Otalgia of both ears Administer [...] Active dilTIAZem HCl ER Beads 360 MG WB12Fyxtqdujztj:HTN, goal below 130/80 TAKE 1 CAPSULE BY [...] COPD GOLD Classification HECTOR (generalized anxiety disorder) 09/27 /2019 Ischemic colitis 10/01/2017 Irritable bowel syndrome with [...] Hypoxemia 10/08/2011 10/30/2015 Genetic Sleep Disorder Research Other*[id number] 07/25/2011 05/15/2016 Diverticulitis of colon 07/25/2011 01/06/20 [...] Visit Internal Medicine Marcela Pinto MD 200 [place] [address] [phone] 06/06/2020 Imaging Radiology Health Maintenance Due Date [...] Documents on File Type Date Recorded 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
--- OUTSIDE RECORDS SUMMARY | 2023-06-18 03:28 | External Medical Summary | Summary of Care ---
Author Name Unknown Organization [place] [address] Care Team Providers Care Civil Rights Attorney Name Role Phone Marcela Pinto MD Primary Care Provider Reason for Visit * Reason Comments Medication Question Encounter Details Date Type Department Care Team Description 12/30/2019 Telephone General Internal Medicine [facility] [address] [place] [address] Marcela Pinto MD 200 [place] [address] Medication Question Allergies Active Allergy Reactions Severity Noted Date Comments Valsartan 07/10/2010 Enalapril 05/21/2006 Escitalopram Oxalate Nausea/vomiting 10/11/2009 Nauseated Iodinated Diagnostic Agents Nausea/vomiting 05/2010 IV Contrast Lisinopril 05/21/2006 Metoprolol Tartrate 11/18/2006 Made pulse low [place] Oil-Black Currant-Vit E 07/10/2010 Verapamil 03/21/2004 Bupropion Hcl 10/30/2009 Makes pt sick in the stomach documented as of this encounter (statuses as of 01/03/2020) Medications Medication Sig Dispensed Refills Start Date [...] on 12/30/2019 10:01 AM Nebulizers (NEBULIZER COMPRESSOR) [facility] [place] via nebulizer. Use as directed. Please [...] Active dilTIAZem HCl ER Beads 360 MG AS60Clorcmisnxk:HTN, goal below 130/80 TAKE 1 CAPSULE BY [...] , group B, by GOLD 2017 classification ([facility]) Inhale 1 Puff by mouth daily. 30 [...] ([facility]) Use as directed. Tests BG 3 XD 100 Each 11 12/30/2019 Active documented as of this encounter (statuses as of 01/03/2020) Active Problems Problem Noted Date Morbid obesity [...] as of this encounter (statuses as of 01/03/2020) Resolved Problems Problem Noted Date Resolved Date [...] Hypoxemia 10/08/2011 10/30/2015 Genetic Sleep Disorder Research Other*[id number] 07/25/2011 05/15/2016 Diverticulitis of colon 07/25/2011 01/06/20 [...] as of this encounter (statuses as of 01/03/2020) Immunizations Name Administration Dates Next Due Hepatitis [...] encounter Miscellaneous Notes * Addendum Note - Michelle Thao LPN - 01/03/2020 9:28 AM EDT Addended by: MICHELLE THAO on: 01/03/2020 09:28 AM Modules accepted: Orders * Telephone Encounter - Michelle Thao LPN - 01/03/2020 9:20 AM EDT Received fax from [facility] Pharm[facility] #[id number] , with updates that Medicare Part B [...] Visit Internal Medicine Marcela Pinto MD 200 [place] [address] [phone] 06/06/2020 Imaging Radiology Health Maintenance Due Date [...] on File Type Date Recorded 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
--- OUTSIDE RECORDS SUMMARY | 2023-06-18 03:28 | External Medical Summary | Summary of Care ---
Author Name Unknown Organization [place] [address] Care Team Providers Care Manager Hvac Name Role Phone Marcela Pinto MD Primary Care Provider [phone] Reason for Visit * Reason Comments Medication Question Encounter Details Date Type Department Care Team Description 12/30/2019 Telephone General Internal Medicine [facility] [address] [place] [address] Marcela Pinto MD 200 [place] [address] [phone] Medication Question Allergies Active Allergy Reactions Severity Noted Date Comments Valsartan 07/10/2010 Enalapril 05/21/2006 Escitalopram Oxalate Nausea/vomiting 10/11/2009 Nauseated Iodinated Diagnostic Agents Nausea/vomiting 05/2010 IV Contrast Lisinopril 05/21/2006 Metoprolol Tartrate 11/18/2006 Made pulse low [place] [...] on 12/30/2019 10:01 AM Nebulizers (NEBULIZER COMPRESSOR[place] [facility] [place]bulizer. Use as directed. Please [...] Active dilTIAZem HCl ER Beads 360 MG WI96Ijnnjyqmapp:HTN, goal below 130/80 TAKE 1 CAPSULE BY [...] than 7.0% ([facility]) Use as directed. Tests BG 3 [...] Hypoxemia 10/08/2011 10/30/2015 Genetic Sleep Disorder Research Other*[id number] 07/25/2011 05/15/2016 Diverticulitis of colon 07/25/2011 01/06/20 [...] for glucometer, test strips and lancets to [facility] at 12/29 OV. 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
--- OUTSIDE RECORDS SUMMARY | 2023-06-18 03:28 | External Medical Summary | Summary of Care ---
Author Name Unknown Organization [place] [address] Care Team Providers Care Time Cycle Operator Name Role Phone Alex Pinto MD Primary Care Provider [phone] Reason for Visit * Reason Comments eRx-Medication Refill Encounter Details Date Type Department Care Team Description 01/14/2020 Refill General Internal Medicine [facility] [address] [place], [place] [id number] Alex Pinto MD 200 [place] [address] [phone] Asthma with severity to be determined; COPD, moderate ([facility]) Allergies Active Allergy Reactions Severity Noted Date Comments Valsartan 07/10/2010 Enalapril 05/21/2006 Escitalopram Oxalate Nausea/vomiting 10/11/2009 Nauseated Iodinated Diagnostic Agents Nausea/vomiting 05/2010 IV Contrast Lisinopril 05/21/2006 Metoprolol Tartrate 11/18/2006 Made pulse low [place] Oil-Black Currant-Vit E 07/10/2010 Verapamil 03/21/2004 Bupropion Hcl 10/30/2009 Makes pt sick in the stomach documented as of this encounter (statuses as of 01/14/2020) Medications Medication Sig Dispensed Refills Start Date [...] MOUTH DAILY 90 Tab 1 8 Active furosemide (LASIX) 40 MG TabletIndications:E ssential hypertension with goal blood pressure less than 130/80 TAKE 1 TABLET BY MOUTH DAILY NEEDED FOR EDEMA 30 Tab 11 8 Active Additional Information Patient taking differently: 80 mg Oral BID, Recently increased to 80 mg BID during recent hospital stay for CHF., Reported on 12/30/2019 10:01 AM Nebulizers (NEBULIZER COMPRESSOR) [facility] Inhale via nebulizer. Use as directed. Please give tubing to use with it. 1 Each 1 9 Active ondansetron ODT (ZOFRAN) 8 MG TBDPIndications:Dvaid sea DISSOLVE 1 TABLET ON TONGUE EVERY [...] Active dilTIAZem HCl ER Beads 360 MG NC67Nqsxqxnnaxb:HTN , goal below 130/80 TAKE 1 CAPSULE BY MOUTH EVERY DAY 90 Cap 1 0 Active HYDROcodone-acetami nophen 5-325 mg per tab 5-325 MG per tabletIndications:G eneralized osteoarthritis Take 1 Tab by mouth every 6 hours as needed for Pain, Mild. 120 Tab 0 0 Active guaiFENesin-codeine (ROBITUSSIN AC) 100-10 MG/5ML [...] 12/30/2019). 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 30 Each 1 0 Active Lancets MISCIndications:Typ e 2 diabetes mellitus with hemoglobin A1c goal of less than 7.0% ([facility]) Use as directed. USE TO TEST BLOOD SUGAR 3 TIMES A DAY FOR DIAGNOSIS CODE OF E11.9 300 Each 1 0 Active Glucose Blood ([place] CONTOUR TEST) STRPIndications:Typ e 2 diabetes mellitus [...] A DAY 12 g 3 0 Active COMBIVENT RESPIMAT 20-100 MCG/ACT InhalerIndications: Asthma with severity to be determined,COPD, moderate (HCC) TAKE 1 PUFF BY MOUTH 4 TIMES A DAY 4 g 11 9 01/14/20 20 Discontinued documented as of this encounter (statuses as of 01/14/2020) Active Problems Problem Noted Date Morbid obesity [...] as of this encounter (statuses as of 01/14/2020) Resolved Problems Problem Noted Date Resolved Date [...] Hypoxemia 10/08/2011 10/30/2015 Genetic Sleep Disorder Research Other*[id number] 07/25/2011 05/15/2016 Diverticulitis of colon 07/25/2011 03/26/20 19 COPD, moderate 07/19/2011 07/28/2019 Overview: Dr [...] as of this encounter (statuses as of 01/14/2020) Immunizations Name Administration Dates Next Due Hepatitis [...] Telephone Encounter - Jud Pereyra RPh - 01/14/2020 10:59 AM EDT Signed Prescriptions: Disp Refills COMBIVENT RESPIMAT 20-100 MCG/ACT Inhaler 12 g 3 Sig: TAKE 1 PUFF BY MOUTH 4 TIMES A DAYAuthorizing Provider: ALEX PINTO User: JUD PEREYRA---- documented in this encounter Plan of Treatment Upcoming Encounters Date Type Specialty Care Team Description 02/01/2020 Office Visit Internal Medicine Alex Pinto MD 200 [facility] [place] [facility] [place] [address] [phone] 06/06/2020 Imaging Radiology Health Maintenance Due Date [...] Documents on File Type Date Recorded 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
--- OUTSIDE RECORDS SUMMARY | 2023-06-18 03:28 | External Medical Summary | Summary of Care ---
Author Name Unknown Organization [place] [address] Care Team Providers Care Roustabout Pusher Name Role Phone Alex Pinto MD Primary Care Provider Reason for Visit * Reason Comments Medication Question Encounter Details Date Type Department Care Team Description 12/30/2019 Telephone General Internal Medicine [facility] [address] [place] [address] Alex Pinto MD 200 [place] [address] Medication Question Allergies Active Allergy Reactions Severity Noted Date Comments Valsartan 07/10/2010 Enalapril 05/21/2006 Escitalopram Oxalate Nausea/vomiting 10/11/2009 Nauseated Iodinated Diagnostic Agents Nausea/vomiting 05/2010 IV Contrast Lisinopril 05/21/2006 Metoprolol Tartrate 11/18/2006 Made pulse low [place] [...] on 12/30/2019 10:01 AM Nebulizers (NEBULIZER COMPRESSOR) [facility] Inhale via nebulizer. Use as directed. Please [...] Active dilTIAZem HCl ER Beads 360 MG HD91Yqtycjsyega:HTN , goal below 130/80 TAKE 1 CAPSULE [...] 12/30/2019). 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 Tests BG [...] Hypoxemia 10/08/2011 10/30/2015 Genetic Sleep Disorder Research Other*[id number] 07/25/2011 05/15/2016 Diverticulitis of colon 07/25/2011 01/06/20 [...] for glucometer, test strips and lancets to [facility] at 12/29 OV. 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
--- OUTSIDE RECORDS SUMMARY | 2023-06-18 03:28 | External Medical Summary | Summary of Care ---
Author Name Unknown Organization [place] [address] Care Team Providers Care Engineering Patternmaker Name Role Phone Marcela Pinto MD Primary Care Provider [phone] Reason for Visit * Reason Comments Medication Question Encounter Details Date Type Department Care Team Description 12/30/2019 Telephone General Internal Medicine [facility] [address] [place] [address] Marcela Pinto MD [address] [place] [address] [phone] Medication Question Allergies Active Allergy Reactions Severity Noted Date Comments Valsartan 07/10/2010 Enalapril 05/21/2006 Escitalopram Oxalate Nausea/vomiting 10/11/2009 Nauseated Iodinated Diagnostic Agents Nausea/vomiting 05/2010 IV Contrast Lisinopril 05/21/2006 Metoprolol Tartrate 11/18/2006 Made pulse low [place] Oil-Black Currant-Vit E 07/10/2010 Verapamil 03/21/2004 Bupropion [...] on 12/30/2019 10:01 AM Nebulizers (NEBULIZER COMPRESSOR) [facility] Inhale via nebulizer. Use as [...] Active dilTIAZem HCl ER Beads 360 MG [id number]:HTN, goal below 130/80 TAKE 1 CAPSULE BY [...] by GOLD 2017 classification ([facility]) Inhale 1 Puff by mouth [...] 7.0% ([facility]) Use as directed. Tests BG [...] Hypoxemia 10/08/2011 10/30/2015 Genetic Sleep Disorder Research Other*[id number] 07/25/2011 05/15/2016 Diverticulitis of colon 07/25/2011 01/06/20 [...] encounter Miscellaneous Notes * Addendum Note - Rad Multani LPN - 01/05/2020 12:32 PM EDT Addended by: RAD MULTANI on: 01/05/2020 12:32 PM Modules accepted: Orders * Telephone Encounter - Rad Multani LPN - 01/05/2020 12:26 PM EDT Pt calling in. States that provider was to send in new orders for glucometer, test strips and lancets to [facility] at 12/29 OV. Pharmacy told [...] 01/03/2020 9:20 AM EDT Received fax from [id number] , with updates that Medicare Part B [...] Visit Internal Medicine Marcela Pinto MD [address] [place] [address] [phone] 06/06/2020 Imaging Radiology Health Maintenance Due Date [...]
--- OUTSIDE RECORDS SUMMARY | 2023-06-18 03:28 | External Medical Summary | Summary of Care ---
Author Name Unknown Organization [place] [address] Care Team Providers Care Space Operations Officer Name Role Phone Marcela Pinto MD Primary Care Provider [phone] Encounter Details Date Type Department Care Team Description 12/08/2019 Scan Encounter Unspecified Department <No scans attached> Allergies Active Allergy Reactions Severity Noted Date Comments Valsartan 07/10/2010 Enalapril 05/21/2006 Escitalopram Oxalate Nausea/vomiting 10/11/2009 Nauseated Iodinated Diagnostic Agents Nausea/vomiting 05/2010 IV Contrast Lisinopril 05/21/2006 Metoprolol Tartrate 11/18/2006 Made pulse low [place] Oil-Black Currant-Vit E 07/10/2010 Verapamil 03/21/2004 Bupropion [...] 12/30/2019 10:01 AM Nebulizers (NEBULIZER COMPRESSOR[place] [facility] [place] via [place]bulizer. Use as directed. 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
--- OUTSIDE RECORDS SUMMARY | 2023-06-18 03:28 | External Medical Summary | Summary of Care ---
Author Name Unknown Organization [place] [address] Care Team Providers Care Classroom Instructor Name Role Phone Marcela Pinto MD Primary Care Provider [phone] Encounter Details Date Type Department Care Team Description 12/08/2019 Scan Encounter Unspecified Department <No scans attached> Allergies Active Allergy Reactions Severity Noted Date Comments Valsartan 07/10/2010 Enalapril 05/21/2006 Escitalopram Oxalate Nausea/vomiting 10/11/2009 Nauseated Iodinated Diagnostic Agents Nausea/vomiting 05/2010 IV Contrast Lisinopril 05/21/2006 Metoprolol Tartrate 11/18/2006 Made pulse low [place] Oil-Black Currant-Vit E 07/10/2010 Verapamil 03/21/2004 Bupropion [...] on 12/30/2019 10:01 AM Nebulizers (NEBULIZER COMPRESSOR) [facility]hale via nebulizer. Use as directed. Please [...] 08/12/2019 Active fluticasone (FLONASE) 50 MCG/ACT nasal sprayIndications:Automatic Embroidery Machine Tender akin maxillary sinusitis,Otalgia of both ears Administer [...] Active dilTIAZem HCl ER Beads 360 MG [id number]:HTN, goal below 130/80 TAKE 1 CAPSULE BY [...] Hypoxemia 10/08/2011 10/30/2015 Genetic Sleep Disorder Research Other*[id number] 07/25/2011 05/15/2016 Diverticulitis of colon 07/25/2011 01/06/20 [...] Visit Internal Medicine Marcela Pinto MD [address] [place] [address] [phone] 06/06/2020 Imaging Radiology Health Maintenance Due Date [...] Documents on File Type Date Recorded 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
--- OUTSIDE RECORDS SUMMARY | 2023-06-18 03:28 | External Medical Summary | Summary of Care ---
Author Name Unknown Organization [place] [address] Care Team Providers Care Boom Cat Operator Name Role Phone Marcela Pinto MD Primary Care Provider [phone] Reason for Visit * Reason Comments Med Request Encounter Details Date Type Department Care Team Description 01/18/2020 Telephone General Internal Medicine [facility] [address] [place] [address] Marcela Pinto MD [address] [place], [place] [id number] Med Request Allergies Active Allergy Reactions Severity Noted Date Comments Valsartan 07/10/2010 Enalapril 05/21/2006 Escitalopram Oxalate Nausea/vomiting 10/11/2009 Nauseated Iodinated Diagnostic Agents Nausea/vomiting 05/2010 IV Contrast Lisinopril 05/21/2006 Metoprolol Tartrate 11/18/2006 Made pulse low [place] Oil-Black Currant-Vit E 07/10/2010 Verapamil 03/21/2004 Bupropion Hcl 10/30/2009 Makes pt sick in the stomach documented as of this encounter (statuses as of 01/18/2020) Medications Medication Sig Dispensed Refills Start Date [...] on 12/30/2019 10:01 AM Nebulizers (NEBULIZER COMPRESSOR) [facility] [...] Active dilTIAZem HCl ER Beads 360 MG [id number]:HTN, goal below 130/80 TAKE 1 CAPSULE BY [...] , group B, by GOLD 2017 classification ([facility]) Inhale 1 Puff by mouth daily. 30 [...] 7.0% ([facility]) USE TO TEST BLOOD SUGAR 3 TIMES [...] A DAY 12 g 3 01/14/2020 Active ciprofloxacin (CIPRO) 500 MG TabletIndications:Di verticulitis of colon Take 1 Tab by mouth every 12 hours for 10 days. 20 Tab 0 01/18/2020 0 Active metroNIDAZOLE (FLAGYL) 500 MG TabletIndications:Di verticulitis of colon Take 1 Tab by mouth 3 times a day for 10 days. 30 Tab 0 01/18/2020 0 Active documented as of this encounter (statuses as of 01/18/2020) Active Problems Problem Noted Date Morbid obesity [...] as of this encounter (statuses as of 01/18/2020) Resolved Problems Problem Noted Date Resolved Date [...] Hypoxemia 10/08/2011 10/30/2015 Genetic Sleep Disorder Research Other*[id number] 07/25/2011 05/15/2016 Diverticulitis of colon 07/25/2011 01/06/20 [...] as of this encounter (statuses as of 01/18/2020) Immunizations Name Administration Dates Next Due Hepatitis [...] Telephone Encounter - Mohinder Landry RN - 01/18/2020 1:10 PM EDT Called patient and informed her of Dr. Pinto's previous message. She verbalized understanding of all information and said she will comply. * Telephone Encounter - Marcela Pinto MD - 01/18/2020 1:04 PM EDT Noted. Patient has a history of recurrent diverticulitis. Script sent to the pharmacy and use it only if she has a fever, worsening pain. If severe pain need to go to emergency room. Please inform the patient. thank you * Telephone Encounter - Nicole Saeed LPN - 01/18/2020 9:37 AM EDT Patient is calling Left side pain. Said she has a history of divertic and it is starting again. Asking for flagyl and cipro for this. Asking for these medications to be sent. Pain is a 4 or 5 out of 10. Not real bad yet. Afraid it will get worse if she doesn't get started on medication. Please advise. documented in this encounter Plan of Treatment Upcoming Encounters Date Type Specialty Care Team Description 02/01/2020 Office Visit Internal Medicine Marcela Pinto MD [address] [place] [address], [place] [address] [phone] 06/06/2020 Imaging Radiology Health Maintenance Due Date [...] Documents on File Type Date Recorded Patient Rehabilitation Medicine Physician 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
--- OUTSIDE RECORDS SUMMARY | 2023-06-18 03:29 | External Medical Summary | Summary of Care ---
Author Name Unknown Organization [place] [address] Care Team Providers Care Chocolatier Name Role Phone Marcela Pinto MD Primary Care Provider [phone] Reason for Visit * Reason Comments Test Results Encounter Details Date Type Department Care Team Description 12/31/2019 Telephone General Internal Medicine [facility] [address] [place] [address] Sisi Xiao PA-C [address] [place] [address] Test Results Allergies Active Allergy Reactions Severity Noted Date Comments Valsartan 07/10/2010 Enalapril 05/21/2006 Escitalopram Oxalate Nausea/vomiting 10/11/2009 Nauseated Iodinated Diagnostic Agents Nausea/vomiting 05/2010 IV Contrast Lisinopril 05/21/2006 Metoprolol Tartrate 11/18/2006 Made pulse low [place] Oil-Black Currant-Vit E 07/10/2010 Verapamil 03/21/2004 Bupropion [...] on 12/30/2019 10:01 AM Nebulizers (NEBULIZER COMPRESSOR) [facility] [place] Inhale via nebulizer. Use as directed. Please give tubing to use with it. 1 Each 1 11/12/2018 Active ondansetron ODT (ZOFRAN) 8 MG TBDPIndications:Na ea DISSOLVE 1 TABLET ON TONGUE EVERY [...] Active dilTIAZem HCl ER Beads 360 MG [id number]:HTN, goal below 130/80 TAKE 1 CAPSULE BY [...] Incisional hernia 10/08/2012 Nocturnal hypoxia 10/02/2011 Overview: 12/16/11 Nocturnal pulse ox 2 LPM -- low [...] Hypoxemia 10/08/2011 10/30/2015 Genetic Sleep Disorder Research Other*[id number] 07/25/2011 05/15/2016 Diverticulitis of colon 07/25/2011 01/06/20 [...] encounter Miscellaneous Notes * Telephone Encounter - Sisi Xiao PA-C - 12/31/2019 8:54 AM EDT Spoke with pt. Notified of CXR and labs. Feeling about the same as yesterday. Will complete doxy and prednisone. Nebs are helping. Down 2 lbs this AM. documented in this encounter Plan of Treatment Upcoming Encounters Date Type Specialty Care Team Description 02/01/2020 Office Visit Internal Medicine Marcela Pinto MD [address] [facility] [address] 06/06/2020 Imaging Radiology Health Maintenance Due [...] Documents on File Type Date Recorded Patient Fairing Man 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
--- OUTSIDE RECORDS SUMMARY | 2023-06-18 03:29 | External Medical Summary | Summary of Care ---
Author Name Unknown Organization [place] [address] Care Team Providers Care Biomedical Analytical Scientist Name Role Phone Marcela Pinto MD Primary Care Provider [phone] Reason for Visit * Reason Comments Hospital Follow-Up [facility] Dis charge Follow-up/active cough Hospital Follow-Up Encounter Details Date Type Department Care Team Description 12/30/2019 Office Visit General Internal Medicine [facility] [address], [place] [id number] Sisi Xiao PA-C [address], [place] [id number] Cough*; Type 2 diabetes mellitus with hemoglobin A1c goal of less than 7.5% ([facility]); COPD, group B, by GOLD 2017 classification ([facility]); Nocturnal hypoxia; HTN, goal below 140/90; Gastrointestinal hemorrhage, unspecified gastrointestinal hemorrhage type; Congestive heart failure, unspecified HF chronicity, unspecified heart failure type ([facility]); Persistent atrial fibrillation; Hospital discharge follow-up; Type 2 diabetes mellitus with hemoglobin A1c goal of less than 7.0% ([facility]); Ischemic colitis ([facility]) Allergies Active Allergy Reactions Severity Noted Date Comments Valsartan 07/10/2010 Enalapril 05/21/2006 Escitalopram Oxalate Nausea/vomiting 10/11/2009 Nauseated Iodinated Diagnostic Agents Nausea/vomiting 05/2010 IV Contrast Lisinopril 05/21/2006 Metoprolol Tartrate 11/18/2006 Made pulse low [place] Oil-Black Currant-Vit E 07/10/2010 Verapamil 03/21/2004 Bupropion Hcl 10/30/2009 Makes pt sick in the stomach documented as of this encounter (statuses as of 12/30/2019) Medications Medication Sig Dispensed Refills Start Date [...] 1 8 Active furosemide (LASIX) 40 MG TabletIndications: Essential [...] 9 Active ondansetron ODT (ZOFRAN) 8 MG TBDPIndications:Na usea DISSOLVE 1 TABLET ON TONGUE EVERY 8 HOURS NEEDED FOR NAUSEA 60 Tab 5 9 Active glimepiride (AMARYL) 4 MG TabletIndications: Type 2 diabetes mellitus with hemoglobin A1c goal of less than 7.5% (HCC) Take 4 mg by mouth daily before breakfast. 90 Tab 3 9 Active COMBIVENT RESPIMAT 20-100 MCG/ACT InhalerIndications :Asthma with severity to be determined,COPD, moderate (HCC) TAKE 1 PUFF BY MOUTH 4 TIMES A DAY 4 g 11 9 Active docusate sodium (COLACE) 100 MG [...] 1 9 Active atorvaSTATin (LIPITOR) 40 MG TabletIndications: Hyperlipidemia with target LDL less than 100 TAKE 1 TABLET BY MOUTH EVERY DAY 90 Tab 1 9 Active fluticasone (FLONASE) 50 MCG/ACT nasal sprayIndications:C hronic maxillary sinusitis,Otalgia of both ears Administer 2 Sprays into each nostril daily. 1 Bottle 11 9 Active omeprazole (PRILOSEC) 20 MG CPDRIndications:Is chemic colitis (HCC) TAKE 1 CAPSULE BY MOUTH TWICE A DAY 180 Cap 1 9 Active zafirlukast (ACCOLATE) 20 MG TabletIndications: Asthma [...] Active dilTIAZem HCl ER Beads 360 MG CS60Afeczvasllv:HT N, goal below 130/80 TAKE 1 CAPSULE BY MOUTH EVERY DAY 90 Cap 1 0 Active HYDROcodone-acetam inophen 5-325 mg per tab 5-325 MG per tabletIndications: Generalized osteoarthritis Take 1 Tab by mouth every 6 hours as needed for Pain, Mild. 120 Tab 0 0 Active guaiFENesin-codein e (ROBITUSSIN AC) 100-10 [...] 12/30/2019). 0 Active INCRUSE ELLIPTA 62.5 MCG/INH AEPBIndications:CO PD, group B, by GOLD 2017 classification ([facility]) Inhale 1 Puff by mouth daily. 30 Each 1 0 Active Glucose Blood (YEIMY CONTOUR TEST) STRPIndications:Ty pe 2 diabetes mellitus with hemoglobin A1c goal of less than 7.0% ([facility]) USE TO TEST BLOOD SUGAR 3 TIMES A DAY FOR DIAGNOSIS CODE OF E11.9 100 Strip 11 0 Active Lancets MISCIndications:Ty pe 2 diabetes mellitus with hemoglobin A1c goal of less than 7.0% ([facility]) Use as directed. Tests BG 3 XD 100 Each 11 0 Active LANCETS MISCIndications:DM type 2, goal A1c below 7 Use as directed to test blood sugar once daily--Dx code 250.00 100 Each 3 3 020 Discontinued(Re fill) SPIRIVA HANDIHALER 18 MCG IN CAPSIndications:As thma, severity to be determined INHALE 1 CAPSULE VIA HAND HELD INHALER ONCE DAILY AT THE SAME TIME EVERY DAY 30 Cap 5 3 020 Discontinued(Me dication/Dose Changed) Glucose Blood (YEIMY COUNTOUR TEST) STRP R73.09/hgba1c 7.2 Tests up to 3 times daily 100 Strip 5 5 020 Discontinued Glucose Blood (YEIMY CONTOUR TEST) STRPIndications:Ty pe 2 diabetes mellitus with hemoglobin A1c goal of less than 7.0% ([facility]) USE TO TEST BLOOD SUGAR 4 TIMES A DAY FOR DIAGNOSIS CODE OF E11.9 100 Strip 5 7 020 Discontinued Terazosin HCl 2 MG Capsule TAKE 1 CAPSULE BY MOUTH EVERY DAY 90 Cap 1 9 020 Discontinued(Me dication/Dose Changed) traZODone (DESYREL) 50 MG TabletIndications: HECTOR (generalized anxiety disorder) TAKE 1 TABLET BY MOUTH EVERYDAY AT BEDTIME 90 Tab 1 9 020 Discontinued(Me dication/Dose Changed) INCRUSE ELLIPTA 62.5 MCG/INH AEPB Inhale 1 Puff by mouth daily. 0 0 020 Discontinued(Re fill) documented as of this encounter (statuses as of 12/30/2019) Active Problems Problem Noted Date Morbid obesity [...] as of this encounter (statuses as of 12/30/2019) Resolved Problems Problem Noted Date Resolved Date [...] Hypoxemia 10/08/2011 10/30/2015 Genetic Sleep Disorder Research Other*[id number] 07/25/2011 05/15/2016 Diverticulitis of colon 07/25/2011 01/06/20 [...] as of this encounter (statuses as of 12/30/2019) Immunizations Name Administration Dates Next Due Hepatitis [...] Travel End documented as of this encounter Last Filed Vital Signs Vital Sign Reading Time Taken Comments Blood Pressure 130/76 12/30/2019 10:18 AM EDT Pulse 100 12/30/2019 10:18 AM EDT Temperature 36.6 C (97.8 F) 12/30/2019 10:18 AM E DT Respiratory Rate 18 12/30/2019 10:18 AM EDT Oxygen Saturation 92% 12/30/2019 10:18 AM EDT Inhaled Oxygen Concentration - - Weight 105 kg (231 lb 6.4 oz) 12/30/2019 10:18 A M EDT Height 165.1 cm (5' 5") 12/30/2019 10:18 AM EDT Body Mass Index 38.51 12/30/2019 10:18 AM EDT documented in this encounter Progress Notes * Sisi Xiao PA-C - 12/30/2019 11:17 AM EDT SUBJECTIVE: Nina Harrington is a 79 year old female. Chief Complaint Patient presents with Hospital Follow-Up [facility] Discharge Follow-up/active cough Hospital Follow-Up Recent Admission: Patient was recently admitted to [facility] followed by [facility]. The dateof discharge was 12/25/2019. Discharge report received and reviewed. HPI: Patient is an 79-year-old female with a past medical history significant for hypertension, COPD, type 2 diabetes mellitus, atrial fibrillation on Eliquis in the past but discontinued due to GI bleed with recent Watchman procedure performed on 12/03/2019. She was seen in ER in mid September for acute diverticulitis and found to have new onset atrial fibrillation. Ejection fraction at that timewas 50-55%. Was discharged off of anticoagulation given GI bleed. Was supposed to have EGD and colonoscopy. She had seen her benefits representative and had a Watchman procedure performed on 12/03. On 12/08 shepresented to the ER with increasing shortness of breath. Elevated BNP and found to be in CHF. She wa s transferred to [facility] where she was diuresed approximately 16 lb. She was started on Lasix 80 mg twice daily for acute diastolic CHF with TTE with preserved ejection fraction, mild , moderate MR, small to moderate pericardial effusion and right pleural effusion felt to be likely secondaryto Watchman procedure. Treated with asthmatic exacerbation with Z-Nasim in 5 days of prednisone. Her supplemental oxygen decreased from 4 L throughout the day to 1 L during the day and 4 L at night. She was discharged with Lasix 80 mg twice daily, increase Cardizem from 240-360, started on Incruse Ellipta-Spiriva was discontinued. She was discharged to rehab and spent 8 days there. She was able to ambulate on her own-sats continued to be in the low 90s. She did wear her oxygen throughout her staythere. Discharge to home on 12/25/2019. She was at home been doing well on Friday, but onFriday she developed a slight cough and sore throat. Somewhere on Friday or Friday she started taking a home prescription for doxycycline 100 mg twice daily. On Friday she started her prednisone rescue kit. Her blood sugars were elevated initially, at 3:29 a.m.. She checked them this morning and they were 189 today. When she was discharged on Friday her weight was 233 lb. She has continued with her Lasix and is down to 228 lb today. She did have a 0.4 lb increased 2 days ago, but was down2 lb today. Denies any chest pain. Does have some shortness of breath. Having cough with white sputum. No fevers or chills, but has been slightly sweaty recently. Feels fatigued. Denies any peripheral edema. No PND or orthopnea. Continue was with 2 L during the day and 4 L at night. Has not been doing any DuoNebs and has discontinued her Incruse because she thought this may have led to her cough. 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 Allergic rhinitis J30.9 Nocturnal hypoxia G47.34 Sleep apnea, obstructive G47.33 Incisional hernia K43.2 ACEI/ARB contraindicated [id number] HTN, goal below 140/90 I10 Hyperlipidemia with target LDL less than 100 E78.5 Controlled substance agreement signed Z79.899 Type 2 diabetes mellitus with hemoglobin A1c goal of less than 7.5% ([facility]) E11.9 Hypercalcemia E83.52 Elevated plasma metanephrines R79.89 Irritable bowel syndrome with constipation K58.1 Ischemic colitis ([facility]) K55.9 HECTOR (generalized anxiety disorder) F41.1 COPD, group B, by GOLD 2017 classification ([facility]) J44.9 Morbid obesity with BMI of 40.0-44.9, adult ([facility]) E66.01, Z68.41 Gastro-esophageal reflux disease without esophagitis K21.9 Current Outpatient Medications Medication Sig Dispense Refill INCRUSE ELLIPTA 62.5 MCG/INH AEPB Inhale 1 Puff by mouth daily. predniSONE (DELTASONE) 10 MG Tablet Take 10 [...] needed for Pain, Mild. 120 Tab 0 dilTIAZem [...] Cap by mouth daily. 90 Cap 0 COMBIVENT RESPIMAT 20-100 MCG/ACT Inhaler TAKE 1 PUFF BY MOUTH 4 TIMES A DAY 4 g 11 glimepiride (AMARYL) 4 MG Tablet Take 4 [...] mg BID during recent hospital stay for CHF.) 30 Tab 11 KLOR-CON M20 [...] Tab by mouth daily. 100 Tab 3 Glucose Blood (YEIMY CONTOUR TEST) STRP USE TO TEST BLOOD SUGAR 4 TIMES A DAY FOR DIAGNOSIS CODE OF E11.9 (Patient taking differently: USE TO TEST BLOOD SUGAR 3 TIMES A DAY FOR DIAGNOSIS CODE OF E11.9) 100 Strip 5 polyethylene glycol 3350 (MIRALAX) 255 gram powder [...] the day and 4 LPM at night Glucose Blood (YEIMY COUNTOUR TEST) STRP R73.09/hgba1c 7.2 Tests up to 3 times daily 100 Strip 5 Probiotic Product (PROBIOTIC DAILY) Capsule Take 1 Cap by mouth daily. AZOPT 1 % OP SUSP INSTILL 1 DROP BY OPHTHALMIC ROUTE 2 TIMES EVERY DAY INTO BOTH EYES 4 LUMIGAN 0.01 % OP SOLN INSTILL 1 DROP BY TOPICAL ROUTE EVERY BEDTIME 4 LANCETS MISC Use as directed to test blood sugar once daily--Dx code 250.00 (Patient taking differently: Use as directed. Tests BG 3 XD) 100 Each 3 VITAMIN D 1000 UNITS PO TABS one tablet daily Albuterol Sulfate (VENTOLIN HFA) 108 (90 Base) MCG/ACT AERS Inhale 2 Puffs by mouth 2 times a day. guaiFENesin-codeine (ROBITUSSIN AC) 100-10 MG/5ML solution Take 10 mL by mouth every 4 hours as needed. fluticasone (FLONASE) 50 MCG/ACT nasal spray Administer 2 Sprays into each nostril daily. 1 Bottle 11 Current and discharge medications have been reconciled. Review of patient's allergies indicates: Allergen Reactions Diovan [Valsartan] Enalapril Escitalopram Oxalate Nausea/vomiting Nauseated Iodinated Diagnostic Agents Nausea/vomiting IV Contrast Lisinopril Metoprolol Tartrate Made pulse low [place] Oil-Black Currant-Vit E Verapamil Wellbutrin [Bupropion Hcl] Makes pt sick in the stomach OBJECTIVE: BP 130/76 | Pulse 100 | Temp (Src) 97.8 (Tympanic) | Resp 18 | Ht 5' 5" (1.651m) | Wt 231 lbs 6.4 oz (104.962kg) | BMI 38.51 kg/m | BSA 2.19 m | SaO2 92% Review Of Systems: Skin: negative Eyes: negative, cataract surgery postponed Ears/Nose/Throat: hoarseness, sore throat Respiratory: + cough, KULKARNI, white sputum Cardiovascular: palpitations, tachycardia, chest pain, exertional chest pain or pressure, paroxysmal nocturnal dyspnea, orthopnea and lower extremity edema Gastrointestinal: pt. denies:, abdominal pain, bloating or excess gas, nausea, blood in stool or black stools, pertinent positives:, + poor appetite, + constipation Genitourinary: pt denies:, dysuria, frequency and hematuria Musculoskeletal: pt denies significant joint pain or stiffness Neurologic: pt denies:, headaches, syncope, vertigo and dizziness Psychiatric: negative Hematologic/Lymphatic/Immunologic: +anemia Endocrine: negative PHYSICAL EXAM: BP 130/76 | Pulse 100 | Temp (Src) 97.8 (Tympanic) | Resp 18 | Ht 5' 5" (1.651m) | Wt 231 lbs 6.4 oz (104.962kg) | BMI 38.51 kg/m | BSA 2.19 m | SaO2 92% General: alert and comfortable in wheelchair, nontoxic, no conversational dyspnea Head: Normocephalic, No masses, lesions, tenderness or abnormalities Eye Exam: PERRLA, EOMI, Conjunctiva are pink and non-injected, sclera clear Ears: External ears normal, Canals clear, TM's Normal Nose: no mucosal erythema, no mucosal edema, no purulent discharge Oropharynx: no exudate, lips, buccal mucosa, and tongue normal, mucous membranes are moist and + erythema Neck: supple, no adenopathy, no bruits, thyroid normal size, non-tender, without nodularity Lymph: no palpable lymphadenopathy Heart: no murmurs, no gallops, irregularly irregular, S-1 normal and S-2 normal Lungs: chest symmetric with normal AP diameter, no chest deformities noted, normal respiratory rateand rhythm, no chest wall tenderness, positive findings: decreased breath sounds at the bases Abdomen: abdomen soft, non-tender, normal bowel sounds and no masses or organomegaly Extremities: less than 2 second capillary refill, no joint deformities, effusion, or inflammation ASSESSMENT: Cough (Primary) - XR CHEST 2 VIEWS Type 2 diabetes mellitus with hemoglobin A1c goal of less than 7.5% (HCC) COPD, group B, by GOLD 2017 classification (HCC) Nocturnal hypoxia HTN, goal below 140/90 Gastrointestinal hemorrhage, unspecified gastrointestinal hemorrhage type - CBC/DIFF WITH REFLEX WORKUP OF ANEMIA; Future; Expected date: 12/30/2019 Congestive heart failure, unspecified HF chronicity, unspecified heart failure type (HCC) - BASIC METAB PANEL, BMP; Future; Expected date: 12/30/2019 Persistent atrial fibrillation Hospital discharge follow-up - DISCH MED RECON CUR MED LIS Concern for consolidation on CXR today. Recommend continuing with doxycycline and rescue kit. New prescription for Incruse sent. DuoNebs q.4 hours p.r.n.. Can take Mucinex as well. Will check CBC andBMP today. If worsening CBC, needs EGD and colonoscopy urgently, otherwise can wait until COVID19 settles down. Will check BMP today. Currently taking 1 dose of potassium chloride 20 mg and 80 mg of Lasix twice daily. Weight is coming down nicely and there is no evidence of peripheral edema today. Continue with current regimen-may need to adjust potassium chloride. Has follow-up with cardiology on 01/11/2020. Will continue with Cardizem 360 mg daily. Discussed concerning signs symptoms that require immediate re-evaluation. Follow Up: Return in 1 month (on 01/30/2020). Sisi Xiao PA-C documented in this encounter Nursing Notes * Dahlia Thao LPN - 12/30/2019 10:12 AM EDT Chief Complaint Patient presents with Hospital Follow-Up [facility] Discharge Follow-up/active cough Reports recent hospital stay for 11 days for CHF, then discharged to rehab for 8 days then came home on Friday. Reports ongoing cough and shortness of breath. Feels that cough and SOB have been increased and worsened since she came home. Reports SOB especially with walking around. Reports cough is frequent, moist and productive of thick, clear/white mucous. Was taken off of Ventolin in hospital but is interested in being put back on it. Was started on Incruse in hospital but self discontinueduse on Friday because she felt that the Incruse may be causing her increased SOB. Is currently onoxygen therapy via nasal cannula at 2 LPM - reports using 2 LPM during the day and 4 LPM at night. 92% on 2 LPM at this time. Respirations even and slightly labored at times. Reports took Percocet [id number] today. 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 Reports bump on right outer lower leg - just noticed it yesterday - denies pain and discomfort. documented in this encounter Plan of Treatment Upcoming Encounters Date Type Specialty Care Team Description 02/01/2020 [facility] [address] [facility] [address] [facility]/06[facility]2020 Imaging Radiology Pending Results Name Type Priority Associated Diagnoses Date /Time XR CHEST 2 VIEWS Medical Imaging Routine Cough 12/30/2019 11:05 AM EDT CBC/DIFF WITH REFLEX WORKUP OF ANEMIA Lab Routine Gastrointestinal hemorrhage, unspecified gastrointestinal hemorrhage type 12/30/2019 10:53 AM EDT Scheduled Orders Name Type Priority Associated Diagnoses Orde r Schedule CBC/DIFF WITH REFLEX WORKUP OF ANEMIA Lab Routine Gastrointestinal hemorrhage, unspecified gastrointestinal hemorrhage type Expected: 12/30/2019 (Approximate), Expires: 12/29/2020 Health Maintenance Due Date Last Done Comments [...] as of this encounter Results * BASIC METAB PANEL, BMP (12/30/2019 10:53 AM EDT) BUN 22(H) 6 - 20 mg/dL [place] CREATININE 1.0 0.5 - 1.0 mg/dL [place] E GLOM FILT RATE 52.8(L)Comment:If patient is , multiply estimated GFR by 1.159. >60 [place] SODIUM 139 135 - 146 mmol/L [place] POTASSIUM 4.7 3.5 - 5.1 mmol/L [place] CHLORIDE 93(L) 98 - 107 mmol/L [place] CO2 33(H) 22 - 32 mmol/L [place] ANION GAP 13 7 - 15 mmol/L [place] GLUCOSE 143(H) 70 - 120 mg/dL [place] CALCIUM 10.6(H)Comment:RESU LTS RECHECKED 8.4 - 10.2 mg/dL [place] Specimen Performing Organization Address City/State/Zipcod e Phone Number [facility] [address] [place] [address] documented in this encounter Visit Diagnoses Diagnosis Cough- Primary Type 2 diabetes mellitus with hemoglobin A1c goal of less than 7.5% (HCC) COPD, group B, by GOLD 2017 classification (HCC) Nocturnal hypoxia Hypoxemia HTN, goal below 140/90 Unspecified essential hypertension Gastrointestinal hemorrhage, unspecified gastrointestinal hemorrhage type Congestive heart failure, unspecified HF chronicity, unspecified heart failure type (HCC) Persistent atrial fibrillation Atrial fibrillation Hospital discharge follow-up Other follow-up examination Type 2 diabetes mellitus with hemoglobin A1c goal of less than 7.0% (HCC) Ischemic colitis (HCC) Unspecified vascular insufficiency of intestine documented in this encounter Advance Directives Documents on File Type Date Recorded Patient Lapidarist 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
--- OUTSIDE RECORDS SUMMARY | 2023-06-18 03:29 | External Medical Summary | Summary of Care ---
Author Name Unknown Organization [place] [address] Care Team Providers Care Peoplesoft Hcm Developer Name Role Phone Marcela Pinto MD Primary Care Provider [phone] Encounter Details Date Type Department Care Team Description 12/25/2019 Scan Encounter Unspecified Department <No scans attached> Allergies Active Allergy Reactions Severity Noted Date Comments Valsartan 07/10/2010 Enalapril 05/21/2006 Escitalopram Oxalate Nausea/vomiting 10/11/2009 Nauseated Iodinated Diagnostic Agents Nausea/vomiting 05/2010 IV Contrast Lisinopril 05/21/2006 Metoprolol Tartrate 11/18/2006 Made pulse low [place] Oil-Black Currant-Vit E 07/10/2010 Verapamil 03/21/2004 Bupropion Hcl 10/30/2009 Makes pt sick in the stomach documented as of this encounter (statuses as of 12/28/2019) Medications Medication Sig Dispensed Refills Start Date End Date Status VITAMIN D 1000 UNITS PO TABS one tablet daily 0 07/27/2012 Active LANCETS MISCIndications:DM type 2, goal A1c below 7 Use as directed to test blood sugar once daily--Dx code 250.00 100 Each 3 01/07/2013 Active SPIRIVA HANDIHALER 18 MCG IN CAPSIndications:Asth ma, severity to be determined INHALE 1 CAPSULE VIA HAND HELD INHALER ONCE DAILY AT THE SAME TIME EVERY DAY 30 Cap 5 02/13/2013 Active LUMIGAN 0.01 % OP SOLN INSTILL 1 DROP BY TOPICAL ROUTE EVERY BEDTIME 4 10/29/2014 Active AZOPT 1 % OP SUSP INSTILL 1 DROP BY OPHTHALMIC ROUTE 2 TIMES EVERY DAY INTO BOTH EYES 4 10/29/2014 Active Probiotic Product (PROBIOTIC DAILY) Capsule Take 1 Cap by mouth daily. 0 02/06/2015 Active Glucose Blood (YEIMY COUNTOUR TEST) STRP R73.09/hgba1c 7.2 Tests up to 3 times daily 100 Strip 5 07/18/2015 Active oxygen GAS Use 4 L/min(Oxygen) as directed. 0 Active polyethylene glycol 3350 (MIRALAX) 255 gram powder Take 17 g by mouth 2 times a day. One cap full in juice, to effect 1 stool per day. . 2 Bottle 3 10/01/2016 Active Glucose Blood (YEIMY CONTOUR TEST) STRPIndications:Type 2 diabetes mellitus with hemoglobin A1c goal of less than 7.0% (HCC) USE TO TEST BLOOD SUGAR 4 TIMES A DAY FOR DIAGNOSIS CODE OF E11.9 100 Strip 5 02/25/2017 Active aspirin enteric coated 81 MG TBEC [...] FOR EDEMA 30 Tab 11 05/25/2018 Active Nebulizers (NEBULIZER COMPRESSOR) MISC Inhale via [...] goal of less than 7.5% (HCC) Take 0.5 Tabs by mouth daily before breakfast. 90 Tab [...] nostril daily. 1 Bottle 11 08/26/2019 Active Terazosin HCl 2 MG Capsule TAKE 1 CAPSULE BY MOUTH EVERY DAY 90 Cap 1 09/07/2019 Active omeprazole (PRILOSEC) 20 MG CPDRIndications:Isch emic colitis (HCC) TAKE 1 CAPSULE BY MOUTH TWICE A DAY 180 Cap 1 09/15/2019 Active zafirlukast (ACCOLATE) 20 MG TabletIndications:As thma with severity to be determined TAKE 1 TABLET BY MOUTH EVERY DAY 90 Tab 1 09/23/2019 Active traZODone (DESYREL) 50 MG TabletIndications:GA D (generalized anxiety disorder) TAKE 1 TABLET BY MOUTH EVERYDAY AT BEDTIME 90 Tab 1 09/27/2019 Active doxycycline 100 MG Tablet Take 100 [...] Active dilTIAZem HCl ER Beads 360 MG [id number]:HTN, goal below 130/80 TAKE 1 CAPSULE BY MOUTH EVERY DAY 90 Cap 1 11/22/2019 Active HYDROcodone-acetamin ophen 5-325 mg per tab 5-325 MG per tabletIndications:Ge neralized osteoarthritis Take 1 Tab by mouth every 6 hours as needed for Pain, Mild. 120 Tab 0 12/06/2019 Active documented as of this encounter (statuses as of 12/28/2019) Active Problems Problem Noted Date Morbid obesity [...] as of this encounter (statuses as of 12/28/2019) Resolved Problems Problem Noted Date Resolved Date [...] Hypoxemia 10/08/2011 10/30/2015 Genetic Sleep Disorder Research Other*[id number] 07/25/2011 05/15/2016 Diverticulitis of colon 07/25/2011 01/06/20 [...] as of this encounter (statuses as of 12/28/2019) Immunizations Name Administration Dates Next Due Hepatitis [...] Encounters Date Type Specialty Care Team Description 12/30/2019 Office Visit Internal Medicine Sisi Xiao PA-C [address] [place] [address] [phone] 02/01/2020 Office Visit Internal Medicine Marcela Pinto MD [address] [place] [address] [phone] 06/06/2020 Imaging Radiology Health Maintenance Due Date [...] on File Type Date Recorded Patient Press Feeder Broomcorn 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
--- OUTSIDE RECORDS SUMMARY | 2023-06-18 03:29 | External Medical Summary | Summary of Care ---
Author Name Unknown Organization [place] [address] Care Team Providers Care Busgirl Name Role Phone Marcela Pinto MD Primary Care Provider [phone] Encounter Details Date Type Department Care Team Description 12/25/2019 Scan Encounter Unspecified Department <No scans attached> Allergies Active Allergy Reactions Severity Noted Date Comments Valsartan 07/10/2010 Enalapril 05/21/2006 Escitalopram Oxalate Nausea/vomiting 10/11/2009 Nauseated Iodinated Diagnostic Agents Nausea/vomiting 05/2010 IV Contrast Lisinopril 05/21/2006 Metoprolol Tartrate 11/18/2006 Made pulse low [place] Oil-Black Currant-Vit E 07/10/2010 Verapamil 03/21/2004 Bupropion [...] Active dilTIAZem HCl ER Beads 360 MG IP34Zakddpxmgde:HTN, goal below 130/80 TAKE 1 CAPSULE BY [...] Hypoxemia 10/08/2011 10/30/2015 Genetic Sleep Disorder Research Other*[id number] 07/25/2011 05/15/2016 Diverticulitis of colon 07/25/2011 01/06/20 [...] Description 12/30/2019 Office Visit Internal Medicine Sisi Xioa PA-C [address] [place] [address] [phone] 02/01/2020 Office Visit Internal Medicine Marcela Pinto MD 200 [place] [address] [phone] 06/06/2020 Imaging Radiology Health Maintenance Due Date [...] Documents on File Type Date 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
--- OUTSIDE RECORDS SUMMARY | 2023-06-18 03:29 | External Medical Summary | Summary of Care ---
Author Name Unknown Organization [place] [address] Care Team Providers Care Ferris Wheel Operator Name Role Phone Marcela Pinto MD Primary Care Provider [phone] Encounter Details Date Type Department Care Team Description 12/09/2019 Orders Only General Internal Medicine [facility] [address] [facility] [address] [place], [place] [id number] Marcela Pinto MD 200 [facility] [place], [place] [id number] Allergies Active Allergy Reactions Severity Noted Date Comments Valsartan 07/10/2010 Enalapril 05/21/2006 Escitalopram Oxalate Nausea/vomiting 10/11/2009 Nauseated Iodinated Diagnostic Agents Nausea/vomiting 05/2010 IV Contrast Lisinopril 05/21/2006 Metoprolol Tartrate 11/18/2006 Made pulse low [place] Oil-Black Currant-Vit E 07/10/2010 Verapamil 03/21/2004 Bupropion Hcl 10/30/2009 Makes pt sick in the stomach documented as of this encounter (statuses as of 12/09/2019) Medications Medication Sig Dispensed Refills Start Date [...] Active dilTIAZem HCl ER Beads 360 MG KQ77Xezdmrmeeke:HTN, goal below 130/80 TAKE 1 CAPSULE BY MOUTH EVERY DAY 90 Cap 1 11/22/2019 Active HYDROcodone-acetamin ophen 5-325 mg per tab 5-325 MG per tabletIndications:Ge neralized osteoarthritis Take 1 Tab by mouth every 6 hours as needed for Pain, Mild. 120 Tab 0 12/06/2019 Active documented as of this encounter (statuses as of 12/09/2019) Active Problems Problem Noted Date Morbid obesity [...] as of this encounter (statuses as of 12/09/2019) Resolved Problems Problem Noted Date Resolved Date [...] Hypoxemia 10/08/2011 10/30/2015 Genetic Sleep Disorder Research Other*[id number] 07/25/2011 05/15/2016 Diverticulitis of colon 07/25/2011 01/06/20 [...] as of this encounter (statuses as of 12/09/2019) Immunizations Name Administration Dates Next Due Hepatitis [...] Encounters Date Type Specialty Care Team Description 12/14/2019 Office Visit Internal Medicine Marcela Pinto MD 200 [facility] [place] [address] [phone] 12/29/2019 Nutrition Services Gastroenterology Nita Enriquez RDN [address] [place] [address] [place] [address] 01/04/2020 Procedure Only Endoscopy Judson Lloyd MD 132 [facility] [place] [address] 01/04/2020 Procedure Only Endoscopy Judson Lloyd MD [address] [place] [address] [phone] 02/01/2020 Office Visit Internal Medicine Marcela Pinto MD [address] [place] [address] [phone] 06/06/2020 Imaging Radiology Health Maintenance Due Date [...] history exists DIABETES-URINE MICROALBUMIN EVERY 12 MONTHS 10/30/2020 10/30/2019, 07/09/2019, 03/22/2019, Additional history exists COLONOSCOPY-EVERY 3 YRS AGES [...] Priority Date/Time Associated Diagnosis Comments CHEMISTRY-OUTSIDE Routine 12/08/2019 documented in this encounter Results * CHEMISTRY-OUTSIDE (12/08/2019) CREATININE-OUTSIDE LAB OUTSIDE LAB (SEE SCANNED REPORT) GFR ESTIMATED-OUTSIDE LAB OUTSIDE LAB (SEE SCANNED REPORT) POTASSIUM-OUTSIDE [...] LAB OUTSIDE LAB (SEE SCANNED REPORT) HEMOGLOBIN, [id number] LAB OUTSIDE LAB (SEE SCANNED REPORT) PHOSPHORUS-OUTSIDE LAB OUTSIDE LAB (SEE SCANNED REPORT) PTH-OUTSIDE LAB OUTSIDE LAB (SEE SCANNED REPORT) MICROALBUMIN RATIO-OUTSIDE LAB OUTSIDE LAB (SEE SCANNED REPORT) PROTEIN, UA-OUTSIDE LAB TRACE(A) NEGATIVE MG/DL OUTSIDE LAB (SEE SCANNED REPORT) HEMOGLOBIN-OUTSIDE LAB OUTSIDE LAB (SEE SCANNED REPORT) CHEMISTRY COMMENT-OUTSIDE LAB Comment:SEE SCAN: ER, PH CLFD OUTSIDE LAB (SEE SCANNED REPORT) Specimen Narrative Performed At Performing Organization Address City/State/Zipcod e Phone Number OUTSIDE LAB (SEE SCANNED REPORT) documented in this encounter Advance Directives Documents on File Type Date Recorded 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
--- OUTSIDE RECORDS SUMMARY | 2023-06-18 03:29 | External Medical Summary ---
Author Name Unknown Address [address] [place] [address] Phone Organization K01:[place] [id number] Laboratory Report Ordering Provider Test Date Status ANIA LEO 12/30/2019 10:53:00 Final Observation Date Value Abnormality Reference (Units ) Status WBC, Total 12/30/2019 15:52 11.14 Above high normal 4.00 -10.80 (K/uL) Final RBC 12/30/2019 15:52 4.60 3.85-5.15 (M/ uL) Final Hemoglobin 12/30/2019 15:52 12.3 12.0-15.3 (g /dL) Final Performing Location [place] [id number]
--- OUTSIDE RECORDS SUMMARY | 2023-06-18 03:29 | External Medical Summary | Summary of Care ---
Author Name Unknown Organization [place] [address] Care Team Providers Care Smasher Name Role Phone Marcela Pinto MD Primary Care Provider [phone] Encounter Details Date Type Department Care Team Description 12/08/2019 Scan Encounter Unspecified Department <No scans attached> Allergies Active Allergy Reactions Severity Noted Date Comments Valsartan 07/10/2010 Enalapril 05/21/2006 Escitalopram Oxalate Nausea/vomiting 10/11/2009 Nauseated Iodinated Diagnostic Agents Nausea/vomiting 05/2010 IV Contrast Lisinopril 05/21/2006 Metoprolol Tartrate 11/18/2006 Made pulse low [place] Oil-Black Currant-Vit E 07/10/2010 Verapamil 03/21/2004 Bupropion [...] Active dilTIAZem HCl ER Beads 360 MG IO78Wnzgqkezxgx:HTN, goal below 130/80 TAKE 1 CAPSULE BY [...] Hypoxemia 10/08/2011 10/30/2015 Genetic Sleep Disorder Research Other*[id number] 07/25/2011 05/15/2016 Diverticulitis of colon 07/25/2011 01/06/20 [...] Marcela Pinto MD 200 [place] [address] [phone] 12/29/2019 Nutrition Services Gastroenterology Nita Enriquez RDN [address] [place] [address] 01/04/2020 Procedure Only Endoscopy Judson Lloyd MD 132 [facility] [place] [address] 01/04/2020 Procedure Only Endoscopy Judson Lloyd MD 132 [facility] [place] [address] 02/01/2020 Office Visit Internal Medicine Marcela Pinto MD 200 [place] [address] [phone] 06/06/2020 Imaging Radiology Health Maintenance Due Date [...] Documents on File Type Date Recorded 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
--- OUTSIDE RECORDS SUMMARY | 2023-06-18 03:29 | External Medical Summary | Summary of Care ---
Author Name Unknown Organization [place] [address] Care Team Providers Care Orthodontic Treatment Coordinator Name Role Phone Marcela Pinto MD Primary Care Provider [phone] Encounter Details Date Type Department Care Team Description 12/29/2019 Scan Encounter Unspecified Department <No scans attached> Allergies Active Allergy Reactions Severity Noted Date Comments Valsartan 07/10/2010 Enalapril 05/21/2006 Escitalopram Oxalate Nausea/vomiting 10/11/2009 Nauseated Iodinated Diagnostic Agents Nausea/vomiting 05/2010 IV Contrast Lisinopril 05/21/2006 Metoprolol Tartrate 11/18/2006 Made pulse low [place] Oil-Black Currant-Vit E 07/10/2010 Verapamil 03/21/2004 Bupropion [...] Active dilTIAZem HCl ER Beads 360 MG OC97Irylxmsutxu:HTN, goal below 130/80 TAKE 1 CAPSULE BY [...] Hypoxemia 10/08/2011 10/30/2015 Genetic Sleep Disorder Research Other*[id number] 07/25/2011 05/15/2016 Diverticulitis of colon 07/25/2011 01/06/20 [...] Visit Internal Medicine Marcela Pinto MD 200 [place] [address] [phone] 06/06/2020 Imaging Radiology Health Maintenance Due Date [...] Documents on File Type Date Recorded 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
--- OUTSIDE RECORDS SUMMARY | 2023-06-18 03:29 | External Medical Summary | Summary of Care ---
Author Name Unknown Organization [place] [address] Care Team Providers Care Channel Partners Name Role Phone Marcela Pinto MD Primary Care Provider [phone] Reason for Visit * Reason Comments Appointment EGD/colon Encounter Details Date Type Department Care Team Description 12/27/2019 Telephone Gastroenterology, [facility] [address] [address] To Cueva CRNP 132 [place] [address] Appointment (EGD/colon) Allergies Active Allergy Reactions Severity Noted Date Comments Valsartan 07/10/2010 Enalapril 05/21/2006 Escitalopram Oxalate Nausea/vomiting 10/11/2009 Nauseated Iodinated Diagnostic Agents Nausea/vomiting 05/2010 IV Contrast Lisinopril 05/21/2006 Metoprolol Tartrate 11/18/2006 Made pulse low [place] Oil-Black Currant-Vit E 07/10/2010 Verapamil 03/21/2004 Bupropion Hcl 10/30/2009 Makes pt sick in the stomach documented as of this encounter (statuses as of 12/27/2019) Medications Medication Sig Dispensed Refills Start Date [...] than 7.0% ([facility]) USE TO TEST BLOOD SUGAR 4 TIMES [...] Active dilTIAZem HCl ER Beads 360 MG WK10Pjtmufzrtlc:HTN, goal below 130/80 TAKE 1 CAPSULE BY MOUTH EVERY DAY 90 Cap 1 11/22/2019 Active HYDROcodone-acetamin ophen 5-325 mg per tab 5-325 MG per tabletIndications:Ge neralized osteoarthritis Take 1 Tab by mouth every 6 hours as needed for Pain, Mild. 120 Tab 0 12/06/2019 Active documented as of this encounter (statuses as of 12/27/2019) Active Problems Problem Noted Date Morbid obesity [...] as of this encounter (statuses as of 12/27/2019) Resolved Problems Problem Noted Date Resolved Date [...] Hypoxemia 10/08/2011 10/30/2015 Genetic Sleep Disorder Research Other*[id number] 07/25/2011 05/15/2016 Diverticulitis of colon 07/25/2011 01/06/20 [...] as of this encounter (statuses as of 12/27/2019) Immunizations Name Administration Dates Next Due Hepatitis [...] Miscellaneous Notes * Telephone Encounter - Frank Clay OSA - 12/27/2019 8:48 AM EDT FYI - pt was scheduled for EGD and colonoscopy 01/03. Ordered for nausea, diverticulitis. Pt called to cancel procedures, states she was recently in the hospital and then released to rehab. Still not feeling well. Declined to reschedule at this time, states will call to reschedule at a later date. Pt is on recall for repeat colonoscopy for hx polyps for 02/2021 and repeat EGD for hx gastric mass for 04/2020. 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
--- OUTSIDE RECORDS SUMMARY | 2023-06-18 03:29 | External Medical Summary | Summary of Care ---
Author Name Unknown Organization [place] [address] Care Team Providers Care Supervisor Welding Equipment Repairer Name Role Phone Marcela Pinto MD Primary Care Provider [phone] Encounter Details Date Type Department Care Team Description 12/09/2019 Orders Only General Internal Medicine [facility] [address] [place], [place] [id number] Marcela Pinto MD 200 [facility] [place], [place] [id number] Allergies Active Allergy Reactions Severity Noted Date Comments Valsartan 07/10/2010 Enalapril 05/21/2006 Escitalopram Oxalate Nausea/vomiting 10/11/2009 Nauseated Iodinated Diagnostic Agents Nausea/vomiting 05/2010 IV Contrast Lisinopril 05/21/2006 Metoprolol Tartrate 11/18/2006 Made pulse low [place] Oil-Black Currant-Vit E 07/10/2010 Verapamil 03/21/2004 Bupropion [...] Active dilTIAZem HCl ER Beads 360 MG LS97Vrthixhejug:HTN, goal below 130/80 TAKE 1 CAPSULE BY [...] Hypoxemia 10/08/2011 10/30/2015 Genetic Sleep Disorder Research Other*[id number] 07/25/2011 05/15/2016 Diverticulitis of colon 07/25/2011 01/06/20 [...] Visit Internal Medicine Marcela Pinto MD 200 [place] [address] [phone] 12/29/2019 Nutrition Services Gastroenterology Nita Enriquez RDN [address] [place] [place] [address] 01/04/2020 Procedure Only Endoscopy Judson Lloyd MD 132 [facility] [place] [address] 01/04/2020 Procedure Only Endoscopy Judson Lloyd MD [address] [place] [address] [phone] 02/01/2020 Office Visit Internal Medicine Marcela Pinto MD [address] [place] [address] [phone] 06/06/2020 Imaging Radiology Health Maintenance Due Date [...] encounter Results * CHEMISTRY-OUTSIDE (12/08/2019) CREATININE-OUTSIDE LAB 0.81 0.55 - 1.02 MG/DL OUTSIDE LAB (SEE SCANNED REPORT) GFR ESTIMATED-OUTSIDE LAB >60 >=60 ML/MIN OUTSIDE LAB (SEE SCANNED REPORT) POTASSIUM-OUTSIDE LAB 3.6 3.5 - 5.1 MMOL/L OUTSIDE LAB (SEE SCANNED REPORT) GLUCOSE-OUTSIDE LAB 180(A) 70 - 110 MG/DL OUTSID E LAB [...] LAB OUTSIDE LAB (SEE SCANNED REPORT) HEMOGLOBIN, [id number] LAB OUTSIDE LAB (SEE SCANNED REPORT) PHOSPHORUS-OUTSIDE LAB OUTSIDE LAB (SEE SCANNED REPORT) PTH-OUTSIDE LAB OUTSIDE LAB (SEE SCANNED REPORT) MICROALBUMIN RATIO-OUTSIDE LAB OUTSIDE LAB (SEE SCANNED REPORT) PROTEIN, UA-OUTSIDE LAB OUTSIDE LAB (SEE SCANNED REPORT) HEMOGLOBIN-OUTSIDE LAB 9.7(A) 12.0 - 16.0 GM/DL OUTSIDE LAB (SEE SCANNED REPORT) CHEMISTRY COMMENT-OUTSIDE LAB Comment:SEE SCAN: ER, PH CLFD: CBCD, PROBNP, BMP, TROP OUTSIDE LAB (SEE SCANNED REPORT) Specimen Narrative Performed At Performing Organization Address City/State/Zipcod e Phone Number OUTSIDE LAB (SEE SCANNED REPORT) documented in this encounter Advance Directives Documents on File Type Date 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
--- OUTSIDE RECORDS SUMMARY | 2023-06-18 03:29 | External Medical Summary | Summary of Care ---
Author Name Unknown Organization [place] [address] Care Team Providers Care Forest Aide Name Role Phone Marcela Pinto MD Primary Care Provider Reason for Visit * Reason Comments Medication Question Encounter Details Date Type Department Care Team Description 12/30/2019 Telephone General Internal Medicine [facility] [address] [place] [address] Marcela Pinto MD 200 [place] [address] [phone] Medication Question Allergies Active Allergy Reactions Severity Noted Date Comments Valsartan 07/10/2010 Enalapril 05/21/2006 Escitalopram Oxalate Nausea/vomiting 10/11/2009 Nauseated Iodinated Diagnostic Agents Nausea/vomiting 05/2010 IV Contrast Lisinopril 05/21/2006 Metoprolol Tartrate 11/18/2006 Made pulse low [place] Oil-Black Currant-Vit E 07/10/2010 Verapamil 03/21/2004 Bupropion [...] Active dilTIAZem HCl ER Beads 360 MG [id number]:HTN, goal below 130/80 TAKE 1 CAPSULE BY [...] Hypoxemia 10/08/2011 10/30/2015 Genetic Sleep Disorder Research Other*[id number] 07/25/2011 05/15/2016 Diverticulitis of colon 07/25/2011 01/06/20 [...] encounter Miscellaneous Notes * Telephone Encounter - Kimberly Hector LPN [...] Pinto MD 200 [facility] [place] [address] [phone] 06/06/2020 Imaging Radiology Health Maintenance Due Date [...] Documents on File Type Date Recorded Patient Regroover 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
--- OUTSIDE RECORDS SUMMARY | 2023-06-18 03:29 | External Medical Summary | Summary of Care ---
Author Name Unknown Organization [place] [address] Care Team Providers Care Microphone Boom Operator Name Role Phone Marcela Pinto MD Primary Care Provider [phone] Encounter Details Date Type Department Care Team Description 12/14/2019 Scan Encounter Unspecified Department <No scans attached> Allergies Active Allergy Reactions Severity Noted Date Comments Valsartan 07/10/2010 Enalapril 05/21/2006 Escitalopram Oxalate Nausea/vomiting 10/11/2009 Nauseated Iodinated Diagnostic Agents Nausea/vomiting 05/2010 IV Contrast Lisinopril 05/21/2006 Metoprolol Tartrate 11/18/2006 Made pulse low [place] Oil-Black Currant-Vit E 07/10/2010 Verapamil 03/21/2004 Bupropion [...] 12/30/2019 10:01 AM Nebulizers (NEBULIZER COMPRESSOR) [facility] Inhale via nebulizer. 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,Otalgia of both ears Administer [...] Active dilTIAZem HCl ER Beads 360 MG DY21Izabdjuvrgy:HTN, goal below 130/80 TAKE 1 CAPSULE BY [...] Hypoxemia 10/08/2011 10/30/2015 Genetic Sleep Disorder Research Other*[id number] 07/25/2011 05/15/2016 Diverticulitis of colon 07/25/2011 01/06/20 [...] Visit Internal Medicine Marcela Pinto MD [address] [place] [address] [phone] 06/06/2020 Imaging Radiology Health Maintenance Due Date [...] Documents on File Type Date Recorded 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
--- OUTSIDE RECORDS SUMMARY | 2023-06-18 03:29 | External Medical Summary ---
Author Name Unknown Address [address] [place], [place] [address] Phone Organization K09:[facility] [address] [place] [address] Laboratory Report Ordering Provider Test Date Status ANIA LEO 12/30/2019 10:53:00 Final Observation Date Value Abnormality Reference (Units ) Status BUN 12/30/2019 13:31 22 Above high normal 6-20 (mg/dL) Final Creatinine 12/30/2019 13:31 1.0 0.5-1.0 (mg/ dL) Final E Glom Filt Rate 12/30/2019 13:31 52.8 Below low normal >60 Final Performing Location [facility] [place] [address] [place] [address]
--- OUTSIDE RECORDS SUMMARY | 2023-06-18 03:30 | External Medical Summary | Summary of Care ---
Author Name Unknown Organization [place] [address] Care Team Providers Care Medical Engineer Name Role Phone Marcela Pinto MD Primary Care Provider [phone] Encounter Details Date Type Department Care Team Description 10/30/2019 Scan Encounter Unspecified Department <No scans attached> Allergies Active Allergy Reactions Severity Noted Date Comments Valsartan 07/10/2010 Enalapril 05/21/2006 Escitalopram Oxalate Nausea/vomiting 10/11/2009 Nauseated Iodinated Diagnostic Agents Nausea/vomiting 05/2010 IV Contrast Lisinopril 05/21/2006 Metoprolol Tartrate 11/18/2006 Made pulse low [place] Oil-Black Currant-Vit E 07/10/2010 Verapamil 03/21/2004 Bupropion Hcl 10/30/2009 Makes pt sick in the stomach documented as of this encounter (statuses as of 11/02/2019) Medications Medication Sig Dispensed Refills Start Date [...] other day 60 Tab 11 04/16/2019 Active dilTIAZem HCl ER Beads 360 MG [id number]:HTN, goal below 130/80 TAKE 1 CAPSULE BY MOUTH EVERY DAY 90 Cap 1 05/27/2019 Active albuterol sulfate (PROVENTIL) (2.5 MG/3ML) 0.083% [...] our office. 1 Each 1 10/19/2019 Active HYDROcodone-acetamin ophen 5-325 mg per tab 5-325 MG per tabletIndications:Ge neralized osteoarthritis Take 1 Tab by mouth every 6 hours as needed for Pain, Mild. 120 Tab 0 10/27/2019 Active documented as of this encounter (statuses as of 11/02/2019) Active Problems Problem Noted Date Morbid obesity [...] as of this encounter (statuses as of 11/02/2019) Resolved Problems Problem Noted Date Resolved Date [...] Hypoxemia 10/08/2011 10/30/2015 Genetic Sleep Disorder Research Other*[id number] 07/25/2011 05/15/2016 Diverticulitis of colon 07/25/2011 01/06/20 [...] as of this encounter (statuses as of 11/02/2019) Immunizations Name Administration Dates Next Due Hepatitis [...] Encounters Date Type Specialty Care Team Description 11/18/2019 Procedure Only Endoscopy Judson Lloyd MD [address] [place] [address] [phone] 11/18/2019 Procedure Only Endoscopy Judson Lloyd MD [address] [facility] [place] [address] [phone] 11/22/2019 Nutrition Services Gastroenterology Nita Enriquez, AKIKO [address] [place] [place] [address] 11/25/2019 Office Visit Podiatry [facility] [address] [place] [address] 02/01/2020 Office Visit Internal Medicine Marcela Pinto MD [address] [place] [address], [place] [address] [phone] 06/06/2020 Imaging Radiology Health Maintenance Due Date Last Done Comments Zoster Vaccines (2 of 3) 08/31/2012 07/06/2012 DIABETES-HGBA1C EVERY 6 MONTHS 02/24/2020 08/26/2019, 08/12/2019, 03/22/2019, Additional history exists DXA-EVERY 5 YRS-USE SMARTSET# [id number] TO ORDER 05/01/2020 05/01/2015, 06/19/2010, 06/19/2010, Additional history exists DIABETES-URINE MICROALBUMIN EVERY 12 MONTHS 07/09/2020 07/09/2019, 03/22/2019, 12/25/2018, Additional history exists DIABETES-EYE EXAM 08/10/2020 08/10/2019, , 08/04/2017, Additional history exists DIABETES-FOOT EXAM 10/19/2020 10/19/2019, 0 01/05/2019, 01/16/2018, Additional history exists COLONOSCOPY-EVERY 3 YRS AGES [...] Documents on File Type Date Recorded 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
--- OUTSIDE RECORDS SUMMARY | 2023-06-18 03:30 | External Medical Summary | Summary of Care ---
Author Name Unknown Organization [place] [address] Care Team Providers Care Customer Service Advisor Name Role Phone Marcela Pinto MD Primary Care Provider [phone] Encounter Details Date Type Department Care Team Description 12/08/2019 Result Scan Unspecified Department <No scans attached> Allergies Active Allergy Reactions Severity Noted Date Comments Valsartan 07/10/2010 Enalapril 05/21/2006 Escitalopram Oxalate Nausea/vomiting 10/11/2009 Nauseated Iodinated Diagnostic Agents Nausea/vomiting 05/2010 IV Contrast Lisinopril 05/21/2006 Metoprolol Tartrate 11/18/2006 Made pulse low [place] Oil-Black Currant-Vit E 07/10/2010 Verapamil 03/21/2004 [...] Active dilTIAZem HCl ER Beads 360 MG [id number]:HTN, goal below 130/80 TAKE 1 CAPSULE BY [...] Hypoxemia 10/08/2011 10/30/2015 Genetic Sleep Disorder Research Other*[id number] 07/25/2011 05/15/2016 Diverticulitis of colon 07/25/2011 01/06/20 [...] Visit Internal Medicine Marcela Pinto MD [address] [place] [address] [phone] 12/29/2019 Nutrition Services Gastroenterology Nita Enriquez RDN [address] [place] [place] [address] 01/04/2020 Procedure Only Endoscopy Judson Lloyd MD 132 [facility] [place] [address] 01/04/2020 Procedure Only Endoscopy Judson Lloyd MD 132 [facility] [place] [address] 02/01/2020 Office Visit Internal Medicine Marcela Pinto MD 200 [facility], [place] [address] [phone] 06/06/2020 Imaging Radiology Health Maintenance Due Date [...] Procedure Name Priority Date/Time Associated Diagnosis Comments EKG SCANNED RESULT 12/08/2019 documented in this encounter Results * EKG SCANNED RESULT (12/08/2019) Specimen Narrative Performed At documented in this encounter Advance Directives Documents on File Type Date Recorded 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
--- OUTSIDE RECORDS SUMMARY | 2023-06-18 03:30 | External Medical Summary | Summary of Care ---
Author Name Unknown Organization [place] [address] Care Team Providers Care Recruiter Name Role Phone Marcela Pinto MD Primary Care Provider [phone] Encounter Details Date Type Department Care Team Description 11/25/2019 Orders Only General Internal Medicine [facility] [address] [facility] [address] [place], [place] [id number] Marcela Pinto MD [address] [facility] [place], [place] [id number] Allergies Active Allergy Reactions Severity Noted Date Comments Valsartan 07/10/2010 Enalapril 05/21/2006 Escitalopram Oxalate Nausea/vomiting 10/11/2009 Nauseated Iodinated Diagnostic Agents Nausea/vomiting 05/2010 IV Contrast Lisinopril 05/21/2006 Metoprolol Tartrate 11/18/2006 Made pulse low [place] Oil-Black Currant-Vit E 07/10/2010 Verapamil 03/21/2004 Bupropion Hcl 10/30/2009 Makes pt sick in the stomach documented as of this encounter (statuses as of 11/25/2019) Medications Medication Sig Dispensed Refills Start Date [...] Pain, Mild. 120 Tab 0 10/27/2019 Active dicyclomine (BENTYL) 20 MG TabletIndications:Ch ronic constipation TAKE 1 TABLET BY MOUTH EVERY DAY 90 Tab 2 11/01/2019 Active dilTIAZem HCl ER Beads 360 MG [id number]:HTN, goal below 130/80 TAKE 1 CAPSULE BY MOUTH EVERY DAY 90 Cap 1 11/22/2019 Active documented as of this encounter (statuses as of 11/25/2019) Active Problems Problem Noted Date Morbid obesity [...] as of this encounter (statuses as of 11/25/2019) Resolved Problems Problem Noted Date Resolved Date [...] Hypoxemia 10/08/2011 10/30/2015 Genetic Sleep Disorder Research Other*[id number] 07/25/2011 05/15/2016 Diverticulitis of colon 07/25/2011 01/06/20 [...] as of this encounter (statuses as of 11/25/2019) Immunizations Name Administration Dates Next Due Hepatitis [...] Encounters Date Type Specialty Care Team Description 12/07/2019 Office Visit Podiatry Chantel Moore DPM [address] [place] [address] 12/29/2019 Nutrition Services Gastroenterology Nita Enriquez RDN [address] [place] [address] 01/04/2020 Procedure Only Endoscopy Judson Lloyd MD 132 [facility] [place] [address] [phone] 01/04/2020 Procedure Only Endoscopy Judson Lloyd MD [address] [place] [address] 02/01/2020 Office Visit Internal Medicine Marcela Pinto MD [address] [facility], [place] [address] [phone] 06/06/2020 Imaging Radiology Health Maintenance Due Date [...] Priority Date/Time Associated Diagnosis Comments CHEMISTRY-OUTSIDE Routine 11/24/2019 documented in this encounter Results * CHEMISTRY-OUTSIDE (11/24/2019) CREATININE-OUTSIDE LAB 0.82 0.55 - 1.02 MG/DL OUTSIDE LAB (SEE SCANNED REPORT) GFR ESTIMATED-OUTSIDE LAB >60 >=60 ML/MIN/1.73M2 OUTSIDE LAB (SEE SCANNED REPORT) POTASSIUM-OUTSIDE LAB 4.1 3.5 - 5.1 MMOL/L OUTSIDE LAB (SEE SCANNED REPORT) GLUCOSE-OUTSIDE LAB 106 70 - 110 MG/DL OUTSIDE LAB (SEE SCANNED REPORT) HOURS FASTING OUTSIDE LAB (S EE SCANNED REPORT) TRIGLYCERIDES-OUTSID E LAB OUTSIDE LAB (SEE SCANNED REPORT) CHOLESTEROL-OUTSIDE LAB OUTSIDE LAB (SEE SCANNED REPORT) HDL-OUTSIDE LAB OUTSIDE LAB (SEE SCANNED REPORT) CHOL/HDL RATIO-OUTSIDE LAB OUTSIDE LAB (SEE SCANNED REPORT) LDL (CALCULATED)-OUTSIDE LAB OUTSIDE LAB (SEE SCANNED REPORT) LDL (DIRECT MEASURE)-OUTSIDE LAB OUTSIDE LAB (SEE SCANNED REPORT) HEMOGLOBIN, [id number] LAB OUTSIDE LAB (SEE SCANNED REPORT) PHOSPHORUS-OUTSIDE LAB OUTSIDE LAB (SEE SCANNED REPORT) PTH-OUTSIDE LAB OUTSIDE LAB (SEE SCANNED REPORT) MICROALBUMIN RATIO-OUTSIDE LAB OUTSIDE LAB (SEE SCANNED REPORT) PROTEIN, UA-OUTSIDE LAB OUTSIDE LAB (SEE SCANNED REPORT) HEMOGLOBIN-OUTSIDE LAB 11.5(A) 12.0 - 16.0 GM/DL OUTSIDE LAB (SEE SCANNED REPORT) CHEMISTRY COMMENT-OUTSIDE LAB Comment:SEE SCAN - CBC, BMP, MAGNESIUM OUTSIDE LAB (SEE SCANNED REPORT) Specimen Narrative Performed At Performing Organization Address City/State/Zipcod e Phone Number OUTSIDE LAB (SEE SCANNED REPORT) documented in this encounter Advance Directives Documents on File Type Date Recorded Patient Can Maker 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
--- OUTSIDE RECORDS SUMMARY | 2023-06-18 03:30 | External Medical Summary | Summary of Care ---
Author Name Unknown Organization [place] [address] Care Team Providers Care Cigarette Tester Name Role Phone Marcela Pinto MD Primary Care Provider [phone] Reason for Referral * Medication Prior Authorization (Routine) Status Reason Specialty Diagnoses / Procedures Re ferred By Contact Referred To Contact Closed Diagnoses Generalized osteoarthritis Marcela Pinto MD [address] [place] [address] Encounter Details Date Type Department Care Team Description 12/06/2019 Refill General Internal Medicine [facility] [address] [place] [address] Marcela Pinto MD [address] [place] [address] [phone] GENERAL OSTEOARTHROSIS Allergies Active Allergy Reactions Severity Noted Date Comments Valsartan 07/10/2010 Enalapril 05/21/2006 Escitalopram Oxalate Nausea/vomiting 10/11/2009 Nauseated Iodinated Diagnostic Agents Nausea/vomiting 05/2010 IV Contrast Lisinopril 05/21/2006 Metoprolol Tartrate 11/18/2006 Made pulse low [place] Oil-Black Currant-Vit E 07/10/2010 Verapamil 03/21/2004 Bupropion Hcl 10/30/2009 Makes pt sick in the stomach documented as of this encounter (statuses as of 12/06/2019) Medications Medication Sig Dispensed Refills Start Date End Date Status VITAMIN D 1000 UNITS PO TABS one tablet daily 0 07/27/2012 Activ e LANCETS MISCIndications:DM type 2, goal A1c below 7 Use as directed to test blood sugar once daily--Dx code 250.00 100 Each 3 01/07/2013 Active SPIRIVA HANDIHALER 18 MCG IN CAPSIndications:Ast hma, severity to be determined INHALE 1 CAPSULE [...] 10/01/2016 Active Glucose Blood (YEIMY CONTOUR TEST) STRPIndications:Typ [...] 1 09/07/2019 Active omeprazole (PRILOSEC) 20 MG CPDRIndications:Isc hemic colitis (HCC) TAKE 1 CAPSULE BY MOUTH TWICE A DAY 180 Cap 1 09/15/2019 Active zafirlukast (ACCOLATE) 20 MG TabletIndications:A sthma with severity to be determined TAKE 1 TABLET BY MOUTH EVERY DAY 90 Tab 1 09/23/2019 Active traZODone (DESYREL) 50 MG TabletIndications:G AD (generalized anxiety disorder) TAKE 1 TABLET BY [...] Active dilTIAZem HCl ER Beads 360 MG BO76Rirzhrrkegh:HTN , goal below 130/80 TAKE 1 CAPSULE BY MOUTH EVERY DAY 90 Cap 1 11/22/2019 Active HYDROcodone-acetami nophen 5-325 mg per tab 5-325 MG per tabletIndications:G eneralized osteoarthritis Take 1 Tab by mouth every 6 hours as needed for Pain, Mild. 120 Tab 0 12/06/2019 Active HYDROcodone-acetami nophen 5-325 mg per tab 5-325 MG per tabletIndications:G eneralized osteoarthritis Take 1 Tab by mouth every 6 hours as needed for Pain, Mild. 120 Tab 0 10/27/2019 0 Discontinu ed(Refill) documented as of this encounter (statuses as of 12/06/2019) Active Problems Problem Noted Date Morbid obesity [...] as of this encounter (statuses as of 12/06/2019) Resolved Problems Problem Noted Date Resolved Date [...] Hypoxemia 10/08/2011 10/30/2015 Genetic Sleep Disorder Research Other*[id number] 07/25/2011 05/15/2016 Diverticulitis of colon 07/25/2011 01/06/20 [...] as of this encounter (statuses as of 12/06/2019) Immunizations Name Administration Dates Next Due Hepatitis [...] Telephone Encounter - Marcela Pinto MD - 12/06/2019 2:18 PM EST Signed Prescriptions: Disp Refills HYDROcodone-acetaminophen 5-325 mg per tab*120 Tab0 Sig: Take 1 Tab by mouth every 6 hours as needed for Pain, Mild. Authorizing Provider: MARCELA PINTO * Telephone Encounter - Vani Pelletier LPN - 12/06/2019 2:01 PM EST Pending Prescriptions: Disp Refills HYDROcodone-acetaminophen 5-325 mg per ta*120 Tab0 Sig: Take 1 Tab by mouth every 6 hours as needed for Pain, Mild. 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 Allergic rhinitis J30.9 Nocturnal hypoxia G47.34 Sleep apnea, obstructive G47.33 Incisional hernia K43.2 ACEI/ARB contraindicated [id number] HTN, goal below 140/90 I10 Hyperlipidemia with target LDL less than 100 E78.5 Controlled substance agreement signed Z79.899 Type 2 diabetes mellitus with hemoglobin A1c goal of less than 7.5% ([facility]) E11.9 Hypercalcemia E83.52 Elevated plasma metanephrines R79.89 Irritable bowel syndrome with constipation K58.1 Ischemic colitis ([facility]) K55.9 HECTOR (generalized anxiety disorder) F41.1 COPD, group B, by GOLD 2017 classification ([facility]) J44.9 Morbid obesity with BMI of 40.0-44.9, adult ([facility]) E66.01, Z68.41 Gastro-esophageal reflux disease without esophagitis K21.9 Labs: CREATININE-OUTSIDE LAB(MG/DL) [facility] Dt/Tm Resulted Value Status 11/24/19 11/25/19 0.82 FINAL POTASSIUM-OUTSIDE LAB(MMOL/L) [facility] Dt/Tm Resulted Value Status 11/24/19 11/25/19 4.1 FINAL TSH - OUTSIDE LAB(MCLU/ML) [facility] Dt/Tm Resulted Value Status 08/12/19 08/12/19 0.448 FINAL LDL (CALCULATED)-OUTSIDE LAB(MG/DL) [facility] Dt/Tm Resulted Value Status 08/12/19 08/12/19 94.80 FINAL LDL (DIRECT MEASURE)-OUTSIDE LAB(MG/DL) [facility] Dt/Tm Resulted Value Status 08/12/19 08/12/19 100 FINAL ALT(U/L) [facility] Dt/Tm Resulted Value Status 07/09/19 1:48P 07/09/19 13 FINAL Hemoglobin AIC Results: HEMOGLOBIN, A1C(%) [facility] Dt/Tm Resulted Value Status 08/26/19 2:55P 08/26/19 6.6* FINAL HEMOGLOBIN, [id number] LAB(%) [facility] Dt/Javon Resulted Value Status 08/12/19 08/12/19 6.6* FINAL 03/22/19 04/02/19 6.7* FINAL documented in this encounter Plan of Treatment Upcoming Encounters Date Type Specialty Care Team Description 12/07/2019 Office Visit Podiatry Chantel Moore, LEONARD [address] [place] [address] 12/14/2019 Office Visit Internal Medicine Marcela Pinto MD [address] [place] [address] [phone] 12/29/2019 Nutrition Services Gastroenterology Nita Enriquez RDN [address] [place] [id number] 01/04/2020 Procedure Only Endoscopy Judson Lloyd MD [address] [facility] [place] [address] [phone] 01/04/2020 Procedure Only Endoscopy Judson Lloyd MD [address] [facility] [place] [address] [phone] 02/01/2020 Office Visit Internal Medicine Marcela Pinto MD [address] [place] [address] [phone] 06/06/2020 Imaging Radiology Health Maintenance Due Date [...] Documents on File Type Date 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
--- OUTSIDE RECORDS SUMMARY | 2023-06-18 03:30 | External Medical Summary | Summary of Care ---
Author Name Unknown Organization [place] [address] Care Team Providers Care Clinical Research Spec Name Role Phone Marcela Pinto MD Primary Care Provider [phone] Encounter Details Date Type Department Care Team Description 11/02/2019 Orders Only General Internal Medicine [facility] [address] [place], [place] [id number] Marcela Pinto MD [address] [facility] [place] [address] [phone] Allergies Active Allergy Reactions Severity Noted Date Comments Valsartan 07/10/2010 Enalapril 05/21/2006 Escitalopram Oxalate Nausea/vomiting 10/11/2009 Nauseated Iodinated Diagnostic Agents Nausea/vomiting 05/2010 IV Contrast Lisinopril 05/21/2006 Metoprolol Tartrate 11/18/2006 Made pulse low [place] [...] Active dilTIAZem HCl ER Beads 360 MG [id number]:HTN, goal below 130/80 TAKE 1 CAPSULE BY [...] EVERY DAY 90 Tab 2 11/01/2019 Active documented as of this encounter (statuses [...] Hypoxemia 10/08/2011 10/30/2015 Genetic Sleep Disorder Research Other*[id number] 07/25/2011 05/15/2016 Diverticulitis of colon 07/25/2011 01/06/20 [...] Procedure Only Endoscopy Judson Lloyd MD [address] [place] [address] [phone] 11/18/2019 Procedure Only Endoscopy Judson Lloyd MD [address] [place] [address] [phone] 11/22/2019 Nutrition Services Gastroenterology Nita Enriquez, AKIKO [address] [place] [address] 11/25/2019 Office Visit Podiatry Region[facility] [address] [place] [address] 02/01/2020 Office Visit Internal Medicine Marcela Pinto MD [address] [facility] [place], [place] [address] [phone] 06/06/2020 Imaging Radiology Health Maintenance Due Date [...] Priority Date/Time Associated Diagnosis Comments CHEMISTRY-OUTSIDE Routine 10/30/2019 documented in this encounter Results * CHEMISTRY-OUTSIDE (10/30/2019) CREATININE-OUTSIDE LAB 0.94 0.55 - 1.02 MG/DL OUTSIDE LAB (SEE SCANNED REPORT) GFR ESTIMATED-OUTSIDE LAB >60 >=60 ML/MIN/1.73M2 OUTSIDE LAB (SEE SCANNED REPORT) POTASSIUM-OUTSIDE LAB 4.2 3.5 - 5.1 MMOL/L OUTSIDE LAB (SEE SCANNED REPORT) GLUCOSE-OUTSIDE LAB 158(A) 70 - 110 MG/DL OUTSID E LAB [...] LAB OUTSIDE LAB (SEE SCANNED REPORT) HEMOGLOBIN, [id number] LAB OUTSIDE LAB (SEE SCANNED REPORT) PHOSPHORUS-OUTSIDE LAB OUTSIDE LAB (SEE SCANNED REPORT) PTH-OUTSIDE LAB OUTSIDE LAB (SEE SCANNED REPORT) MICROALBUMIN RATIO-OUTSIDE LAB OUTSIDE LAB (SEE SCANNED REPORT) PROTEIN, UA-OUTSIDE LAB NEGATIVE NEGATIVE OUTSIDE LAB (SEE SCANNED REPORT) HEMOGLOBIN-OUTSIDE LAB 11.6(A) 12.0 - 16.0 GM/DL OUTSIDE LAB (SEE SCANNED REPORT) CHEMISTRY COMMENT-OUTSIDE LAB Comment:SEE SCAN - ED LABS: PT, INR, PTT, UA, CBCD, CMP, LIPASE OUTSIDE LAB (SEE SCANNED REPORT) Specimen Narrative Performed At Performing Organization Address City/State/Zipcod e Phone Number OUTSIDE LAB (SEE SCANNED REPORT) documented in this encounter Advance Directives Documents on File Type Date Recorded Patient Document Controller 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
--- OUTSIDE RECORDS SUMMARY | 2023-06-18 03:30 | External Medical Summary | Summary of Care ---
Author Name Unknown Organization [place] [address] Care Team Providers Care Underground Mining Section Foreman Name Role Phone Marcela Pinto MD Primary Care Provider Encounter Details Date Type Department Care Team Description 11/12/2019 Orders Only General Internal Medicine [facility] [address] [place], [place] [id number] Marcela Pinto MD [address] [facility] [place] [address] [phone] Allergies Active Allergy Reactions Severity Noted Date Comments Valsartan 07/10/2010 Enalapril 05/21/2006 Escitalopram Oxalate Nausea/vomiting 10/11/2009 Nauseated Iodinated Diagnostic Agents Nausea/vomiting 05/2010 IV Contrast Lisinopril 05/21/2006 Metoprolol Tartrate 11/18/2006 Made pulse low [place] Oil-Black Currant-Vit E 07/10/2010 Verapamil 03/21/2004 Bupropion Hcl 10/30/2009 Makes pt sick in the stomach documented as of this encounter (statuses as of 11/12/2019) Medications Medication Sig Dispensed Refills Start Date [...] Active dilTIAZem HCl ER Beads 360 MG CG76Phzbvatdlql:HTN, goal below 130/80 TAKE 1 CAPSULE BY [...] as of this encounter (statuses as of 11/12/2019) Active Problems Problem Noted Date Morbid obesity [...] as of this encounter (statuses as of 11/12/2019) Resolved Problems Problem Noted Date Resolved Date [...] Hypoxemia 10/08/2011 10/30/2015 Genetic Sleep Disorder Research Other*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 07/25/2011 05/15/2016 Diverticulitis of colon 07/25/2011 01/06/20 [...] as of this encounter (statuses as of 11/12/2019) Immunizations Name Administration Dates Next Due Hepatitis [...] Encounters Date Type Specialty Care Team Description 11/22/2019 Nutrition Services Gastroenterology Nita Enriquez RDN [address] [place] [place] [address] 12/02/2019 Office Visit Podiatry Chantel Moore DPM [address] [place] [address] 01/04/2020 Procedure Only Endoscopy Judson Lloyd MD [address] [facility] [place] [address] [phone] 01/04/2020 Procedure Only Endoscopy Judson Lloyd MD [address] [facility] [place] [address] 02/01/2020 Office Visit Internal Medicine Marcela Pinto MD [address] [place] [address] [phone] 06/06/2020 Imaging Radiology Health Maintenance Due Date [...] Priority Date/Time Associated Diagnosis Comments CHEMISTRY-OUTSIDE Routine 11/10/2019 documented in this encounter Results * CHEMISTRY-OUTSIDE (11/10/2019) CREATININE-OUTSIDE LAB 0.96 0.55 - 1.02 MG/DL OUTSIDE LAB (SEE SCANNED REPORT) GFR ESTIMATED-OUTSIDE LAB 60 >60 ML/MIN OUTSIDE LAB (SEE SCANNED REPORT) POTASSIUM-OUTSIDE LAB 4.7 3.5 - 5.1 MMOL/L OUTSIDE LAB (SEE SCANNED REPORT) GLUCOSE-OUTSIDE LAB 129(A) 70 - 110 MG/DL OUTSID E LAB [...] LAB OUTSIDE LAB (SEE SCANNED REPORT) HEMOGLOBIN, [id number] LAB OUTSIDE LAB (SEE SCANNED REPORT) PHOSPHORUS-OUTSIDE LAB OUTSIDE LAB (SEE SCANNED REPORT) PTH-OUTSIDE LAB OUTSIDE LAB (SEE SCANNED REPORT) MICROALBUMIN RATIO-OUTSIDE LAB OUTSIDE LAB (SEE SCANNED REPORT) PROTEIN, UA-OUTSIDE LAB OUTSIDE LAB (SEE SCANNED REPORT) HEMOGLOBIN-OUTSIDE LAB 11.4(A) 12.0 - 16.0 G/DL OUTSIDE LAB (SEE SCANNED REPORT) CHEMISTRY COMMENT-OUTSIDE LAB Comment:OUTSID E- BMP, MAGNESIUM, CBC OUTSIDE LAB (SEE SCANNED REPORT) Specimen Narrative Performed At Performing Organization Address City/State/Zipcod e Phone Number OUTSIDE LAB (SEE SCANNED REPORT) documented in this encounter Advance Directives Documents on File Type Date 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
--- OUTSIDE RECORDS SUMMARY | 2023-06-18 03:30 | External Medical Summary | Summary of Care ---
Author Name Unknown Organization [place] [address] Care Team Providers Care Completions Engineer Name Role Phone Marcela Pinto MD Primary Care Provider [phone] Reason for Visit * Reason Comments eRx-Medication Refill bentyl Encounter Details Date Type Department Care Team Description 10/31/2019 Refill Gastroenterology, [facility] [address] [facility] [place] [address] Charles Coello MD 132 [place] [address] Chronic constipation Allergies Active Allergy Reactions Severity Noted Date Comments Valsartan 07/10/2010 Enalapril 05/21/2006 Escitalopram Oxalate Nausea/vomiting 10/11/2009 Nauseated Iodinated Diagnostic Agents Nausea/vomiting 05/2010 IV Contrast Lisinopril 05/21/2006 Metoprolol Tartrate 11/18/2006 Made pulse low [place] Oil-Black Currant-Vit E 07/10/2010 Verapamil 03/21/2004 Bupropion Hcl 10/30/2009 Makes pt sick in the stomach documented as of this encounter (statuses as of 11/01/2019) Medications Medication Sig Dispensed Refills Start Date End Date Status VITAMIN D 1000 UNITS PO TABS one tablet daily 0 2 Active LANCETS MISCIndications:DM type 2, goal A1c below 7 Use as directed to test blood sugar once daily--Dx code 250.00 100 Each 3 3 Active SPIRIVA HANDIHALER 18 MCG IN CAPSIndications:Ast hma, severity to be determined INHALE 1 CAPSULE VIA HAND HELD INHALER ONCE DAILY AT THE SAME TIME EVERY DAY 30 Cap 5 3 Active LUMIGAN 0.01 % OP SOLN INSTILL 1 DROP BY TOPICAL ROUTE EVERY BEDTIME 4 5 Active AZOPT 1 % OP SUSP INSTILL 1 DROP BY OPHTHALMIC ROUTE 2 TIMES EVERY DAY INTO BOTH EYES 4 5 Active Probiotic Product (PROBIOTIC DAILY) Capsule Take 1 Cap by mouth daily. 0 5 Active Glucose Blood (YEIMY COUNTOUR TEST) STRP R73.09/hgba1c 7.2 Tests up to 3 times daily 100 Strip 5 5 Active oxygen GAS Use 4 L/min(Oxygen) as directed. 0 Active polyethylene glycol 3350 (MIRALAX) 255 gram powder Take 17 g by mouth 2 times a day. One cap full in juice, to effect 1 stool per day. . 2 Bottle 3 6 Active Glucose Blood (YEIMY CONTOUR TEST) STRPIndications:Typ e 2 diabetes mellitus with hemoglobin A1c goal of less than 7.0% ([facility]) USE TO TEST BLOOD SUGAR 4 TIMES A DAY FOR DIAGNOSIS CODE OF E11.9 100 Strip 5 7 Active aspirin enteric coated 81 MG TBEC [...] FOR EDEMA 30 Tab 11 8 Active Nebulizers (NEBULIZER COMPRESSOR) MISC Inhale [...] 3 9 Active COMBIVENT RESPIMAT 20-100 MCG/ACT InhalerIndications: Asthma with severity to be determined,COPD, moderate (HCC) TAKE 1 PUFF BY MOUTH 4 TIMES A DAY 4 g 11 9 Active docusate sodium (COLACE) 100 MG Capsule Take 1 Cap by mouth daily. 90 Cap 0 9 Active ferrous sulfate (FEOSOL) 325 (65 FE) MG Tablet One tablet every other day 60 Tab 11 9 Active dilTIAZem HCl ER Beads 360 MG TY69Jaydjecydvs:HTN , goal below 130/80 TAKE 1 CAPSULE BY MOUTH EVERY DAY 90 Cap 1 9 Active albuterol sulfate (PROVENTIL) (2.5 MG/3ML) [...] nostril daily. 1 Bottle 11 9 Active Terazosin HCl 2 MG Capsule TAKE 1 CAPSULE BY MOUTH EVERY DAY 90 Cap 1 9 Active omeprazole (PRILOSEC) 20 MG CPDRIndications:Isc hemic colitis (HCC) TAKE 1 CAPSULE BY MOUTH TWICE A DAY 180 Cap 1 9 Active zafirlukast (ACCOLATE) 20 MG TabletIndications:A sthma with severity to be determined TAKE 1 TABLET BY MOUTH EVERY DAY 90 Tab 1 9 Active traZODone (DESYREL) 50 MG TabletIndications:G AD (generalized anxiety disorder) TAKE 1 TABLET BY MOUTH EVERYDAY AT BEDTIME 90 Tab 1 9 Active doxycycline 100 MG Tablet Take 100 mg by mouth 2 times a day. 4 9 Active zoster vac recomb adjuvanted (SHINGRIX) 50 MCG/0.5ML injectionIndication s:Need for shingles vaccine Inject 0.5 mL into a large muscle now and repeat dose in 60 to 180 days. Please fax date this was given to our office. 1 Each 1 0 Active HYDROcodone-acetami nophen 5-325 mg per tab 5-325 MG per tabletIndications:G eneralized osteoarthritis Take 1 Tab by mouth every 6 hours as needed for Pain, Mild. 120 Tab 0 0 Active dicyclomine (BENTYL) 20 MG TabletIndications:C hronic constipation TAKE 1 TABLET BY MOUTH EVERY DAY 90 Tab 2 0 Active dicyclomine (BENTYL) 20 MG TabletIndications:C hronic constipation TAKE 1 TABLET BY MOUTH EVERY DAY 90 Tab 2 9 11/01/19 20 Discontinued documented as of this encounter (statuses as of 11/01/2019) Active Problems Problem Noted Date Morbid obesity [...] as of this encounter (statuses as of 11/01/2019) Resolved Problems Problem Noted Date Resolved Date [...] Hypoxemia 10/08/2011 10/30/2015 Genetic Sleep Disorder Research Other*[id number] 07/25/2011 05/15/2016 Diverticulitis of colon 07/25/2011 01/06/20 [...] as of this encounter (statuses as of 11/01/2019) Immunizations Name Administration Dates Next Due Hepatitis [...] encounter Miscellaneous Notes * Telephone Encounter - Maurice Eagle DO - 11/01/2019 10:36 AM EST Signed Prescriptions: Disp Refills dicyclomine (BENTYL) 20 MG Tablet 90 Tab 2 Sig: TAKE 1 TABLET BY MOUTH EVERY DAY Authorizing Provider: MAURICE EAGLE * Telephone Encounter - Tasha Duong LPN - 11/01/2019 10:12 AM EST Pending Prescriptions: Disp Refills dicyclomine (BENTYL) 20 MG Tablet [Pharma*90 Tab 2 Sig: TAKE 1 TABLET BY MOUTH EVERY DAY * Telephone Encounter - Tasha Duong LPN - 11/01/2019 10:10 AM EST Pending Prescriptions: Disp Refills dicyclomine (BENTYL) 20 MG Tablet [Pharma*90 Tab 2 Sig: TAKE 1 TABLET BY MOUTH EVERY DAY Last Office Visit: 03/31/2019 Next Office Visit: No Future Appointments If no future appointments scheduled, and last appointment is greater than a year ago, please schedule patient for a follow-up appointment Last date the medication was ordered: 09/17/2019 Pharmacy: [id number] [id number] [facility] Is this request for a controlled [...] Cutoff Concentration URINE VALID INTERP NORMAL CREATININE TMI 221 *Note: Due to a large number of results and/or encounters for the requested time period, some results have not been displayed. A complete set of results can be found in Results Review. Patient Phone Numbers Labs: Lab Results Component Value Date/Time CREAT 0.93 10/17/2019 CREAT 1.0 07/09/2019 01:48 PM POTASSIUM 4.6 07/09/2019 01:48 PM TSH 0.42 07/27/2018 11:32 AM LDLCALC 94.80 08/12/2019 LDLCALC 95 07/27/2018 11:32 AM LDLDIRECT 100 08/12/2019 LDLDIRECT 97 07/27/2018 11:32 AM ALT 13 07/09/2019 01:48 PM HGBA1C 6.6 (H) 08/26/2019 02:55 PM documented in this encounter Plan of Treatment Upcoming Encounters Date Type Specialty Care Team Description 11/18/2019 Procedure Only Endoscopy Judson Lloyd MD [address] [place] [address] 11/18/2019 Procedure Only Endoscopy Judson Lloyd MD [address] [place] [address] [phone] 11/22/2019 Nutrition Services Gastroenterology Nita Enriquez RDN [address] [place] [address] [place] [address] 11/25/2019 Office Visit Podiatry Region, [facility] [address] [place] [place] [address] 02/01/2020 Office Visit Internal Medicine Marcela Pinto MD [address] [place] [address] [phone] 06/06/2020 Imaging Radiology Health Maintenance Due Date [...] , 06/16/2018, 07/30/2017, Additional history exists MENINGOCOCCAL (MENACTRA) Aged Out No longer eligible based on patient's age to complete this topic documented as of this encounter Implants Not on filedocumented as of this encounter Visit Diagnoses Diagnosis Chronic constipation Unspecified constipation documented in this encounter Advance Directives Documents on File Type Date Recorded 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
--- OUTSIDE RECORDS SUMMARY | 2023-06-18 03:30 | External Medical Summary ---
Author Name Unknown Address [facility] [place] [address] Phone Organization K01:[place] [id number] Laboratory Report Ordering Provider Test Date Status DONALDO JAMISON 11/23/2019 11:36:00 Final Observation Date Value Abnormality Reference (Units ) Status BUN 11/23/2019 23:41 9 6-20 (mg/dL) Final Creatinine 11/23/2019 23:41 0.9 0.5-1.0 (mg/ dL) Final E Glom Filt Rate 11/23/2019 23:41 >60.0 >60 Final Performing Location [facility] [address] [facility] [address]
--- OUTSIDE RECORDS SUMMARY | 2023-06-18 03:30 | External Medical Summary ---
Author Name Unknown Address [address] [place] [address] Phone Organization K01:[facility] [address] [facility] [address] Laboratory Report Ordering Provider Test Date Status DONALDO JAMISON 11/23/2019 11:36:00 Final Observation Date Value Abnormality Reference (Units ) Status WBC, Total 11/23/2019 22:41 9.99 4.00-10.80 (K/uL) Final RBC 11/23/2019 22:41 4.19 3.85-5.15 (M/uL) Final Hemoglobin 11/23/2019 22:41 11.4 Below low normal 12.0-15.3 (g/dL) Final HCT 11/23/2019 22:41 38.9 36.0-45.2 (%) Final MCV 11/23/2019 22:41 92.8 81.5-97.5 (fL) Final MCH 11/23/2019 22:41 27.2 27.0-34.0 (pg) Final MCHC 11/23/2019 22:41 29.3 Below low normal 32.0-36.0 (g/dL) Final RDW 11/23/2019 22:41 14.5 11.5-15.5 (%) Final Platelets 11/23/2019 22:41 371 140-400 (K/uL) Final MPV 11/23/2019 22:41 10.5 6.6-11.1 (fL) Final nRBC/100 WBC Bld Auto-Rto 11/23/2019 22:41 0 0 (/100 WBCs) Final Segs 11/23/2019 22:41 54.2 40-75 (%) Final Lymphs % 11/23/2019 22:41 29.6 18-42 (%) Final Monos 11/23/2019 22:41 10.3 1-11 (%) Final Eosinophils 11/23/2019 22:41 5.0 0-6 (%) Final Basos 11/23/2019 22:41 0.6 0-2 (%) Final Immature Granulocyte, Percent 11/23/2019 22:41 0.3 0-2 (%) Final Neutrophils Bld 11/23/2019 22:41 5.41 1.8-7.7 (K/uL) Final Lymphs, absolute 11/23/2019 22:41 2.96 1.0-4.8 (K/uL) Final Monos, Abs 11/23/2019 22:41 1.03 0.0-1.1 (K/uL) Final Eos, Abs 11/23/2019 22:41 0.50 0.0-0.7 (K/uL) Final Basos, Abs 11/23/2019 22:41 0.06 0.0-0.2 (K/uL) Final Immature Granulocytes, Number 11/23/2019 22:41 0.03 0.0-0.2 (K/uL) Final Performing Location [facility] [address] [place] [address]
--- OUTSIDE RECORDS SUMMARY | 2023-06-18 03:30 | External Medical Summary | Summary of Care ---
Author Name Unknown Organization [place] [address] Care Team Providers Care Correction Officer Name Role Phone Marcela Pinto MD Primary Care Provider [phone] Reason for Visit * Reason Comments eRx-Medication Refill Encounter Details Date Type Department Care Team Description 11/22/2019 Refill General Internal Medicine [facility] [address] [place], [place] [id number] Marcela Pinto MD [address] [place], [place] [id number] HTN, goal below 130/80 Allergies Active Allergy Reactions Severity Noted Date Comments Valsartan 07/10/2010 Enalapril 05/21/2006 Escitalopram Oxalate Nausea/vomiting 10/11/2009 Nauseated Iodinated Diagnostic Agents Nausea/vomiting 05/2010 IV Contrast Lisinopril 05/21/2006 Metoprolol Tartrate 11/18/2006 Made pulse low [place] Oil-Black Currant-Vit E 07/10/2010 Verapamil 03/21/2004 Bupropion Hcl 10/30/2009 Makes pt sick in the stomach documented as of this encounter (statuses as of 11/22/2019) Medications Medication Sig Dispensed Refills Start Date [...] Active dilTIAZem HCl ER Beads 360 MG WD30Mxpyqslzoff:HTN , goal below 130/80 TAKE 1 CAPSULE BY MOUTH EVERY DAY 90 Cap 1 0 Active dilTIAZem HCl ER Beads 360 MG HY76Ahiirptokvj:HTN , goal below 130/80 TAKE 1 CAPSULE BY MOUTH EVERY DAY 90 Cap 1 9 11/22/19 20 Discontinued documented as of this encounter (statuses as of 11/22/2019) Active Problems Problem Noted Date Morbid obesity [...] as of this encounter (statuses as of 11/22/2019) Resolved Problems Problem Noted Date Resolved Date [...] Hypoxemia 10/08/2011 10/30/2015 Genetic Sleep Disorder Research Other*[id number] 07/25/2011 05/15/2016 Diverticulitis of colon 07/25/2011 01/06/20 [...] as of this encounter (statuses as of 11/22/2019) Immunizations Name Administration Dates Next Due Hepatitis [...] Miscellaneous Notes * Telephone Encounter - Melvi Juan, [facility] - 11/22/2019 11:10 AM EST Signed Prescriptions: Disp Refills dilTIAZem HCl ER Beads 360 MG CP24 90 Cap 1 Sig: TAKE 1 CAPSULE BY MOUTH EVERY DAYAuthorizing Provider: MARCELA PINTO User: MELVI JUAN documented in this encounter Plan of Treatment Upcoming Encounters Date Type Specialty Care Team Description 12/07/2019 Office Visit Podiatry Chantel Moore, LEONARD [address] [place] [address] 12/29/2019 Nutrition Services Gastroenterology Nita Enriquez, RDN [address] [place] [address] 01/04/2020 Procedure Only [facility] [address] [phone] 01/04/2020 Procedure Only Endoscopy Judson Lloyd MD 132 [facility] [place] [address] 02/01/2020 Office Visit Internal Medicine Marcela Pinto MD [address] [facility] [place] [address] [phone] 06/06/2020 Imaging Radiology Health Maintenance Due Date [...] on File Type Date Recorded 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
--- OUTSIDE RECORDS SUMMARY | 2023-06-18 03:30 | External Medical Summary | Summary of Care ---
Author Name Unknown Organization [place] [address] Care Team Providers Care Mathematics Professor Name Role Phone Marcela Pinto MD Primary Care Provider [phone] Encounter Details Date Type Department Care Team Description 10/30/2019 Result Scan Unspecified Department <No scans attached> Allergies Active Allergy Reactions Severity Noted Date Comments Valsartan 07/10/2010 Enalapril 05/21/2006 Escitalopram Oxalate Nausea/vomiting 10/11/2009 Nauseated Iodinated Diagnostic Agents Nausea/vomiting 05/2010 IV Contrast Lisinopril 05/21/2006 Metoprolol Tartrate 11/18/2006 Made pulse low [place] Oil-Black Currant-Vit E 07/10/2010 Verapamil 03/21/2004 Bupropion [...] Active dilTIAZem HCl ER Beads 360 MG II68Vtmqqroggwg:HTN, goal below 130/80 TAKE 1 CAPSULE BY [...] Hypoxemia 10/08/2011 10/30/2015 Genetic Sleep Disorder Research Other*[id number] 07/25/2011 05/15/2016 Diverticulitis of colon 07/25/2011 01/06/20 [...] Judson Lloyd MD [address] [place] [address] [phone] 11/18/2019 Procedure Only Endoscopy Judson Lloyd MD 132 [facility] [place] [address] [phone] 11/22/2019 Nutrition Services Gastroenterology Nita Enriquez, AKIKO [address] [place] [address] 11/25/2019 Office Visit Podiatry [facility] [address] [place] [address] 02/01/2020 Office Visit Internal Medicine Marcela Pinto MD [address] [place] [address], [place] [address] [phone] 06/06/2020 Imaging Radiology Health Maintenance Due Date [...] Date/Time Associated Diagnosis Comments EKG SCANNED RESULT 10/30/2019 RADIOLOGY SCANNED RESULT 10/30/2019 documented in this encounter Results * RADIOLOGY SCANNED RESULT (10/30/2019) Specimen Narrative Performed At * EKG SCANNED RESULT (10/30/2019) Specimen Narrative Performed At documented in this encounter Advance Directives Documents on File Type Date 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
--- OUTSIDE RECORDS SUMMARY | 2023-06-18 03:30 | External Medical Summary | Summary of Care ---
Author Name Unknown Organization [place] [address] Care Team Providers Care Bench Precision Assembler Name Role Phone Marcela Pinto MD Primary Care Provider [phone] Reason for Visit * Reason Comments Advice Encounter Details Date Type Department Care Team Description 11/01/2019 Telephone Gastroenterology, [facility] [address] [facility] [place] [address] Judson Lloyd MD [address] [place] [address] Advice Allergies Active Allergy Reactions Severity Noted Date Comments Valsartan 07/10/2010 Enalapril 05/21/2006 Escitalopram Oxalate Nausea/vomiting 10/11/2009 Nauseated Iodinated Diagnostic Agents Nausea/vomiting 05/2010 IV Contrast Lisinopril 05/21/2006 Metoprolol Tartrate 11/18/2006 Made pulse low [place] Oil-Black Currant-Vit E 07/10/2010 Verapamil 03/21/2004 Bupropion [...] Active dilTIAZem HCl ER Beads 360 MG CE27Siyalqvzveo:HTN, goal below 130/80 TAKE 1 CAPSULE BY [...] Hypoxemia 10/08/2011 10/30/2015 Genetic Sleep Disorder Research Other*[id number] 07/25/2011 05/15/2016 Diverticulitis of colon 07/25/2011 01/06/20 [...] Telephone Encounter - Frank Clay OSA - 11/01/2019 12:23 PM EST Information sent to pt again via mail. * Telephone Encounter - Elenita Foy OSA - 11/01/2019 12:06 PM EST Pt called advising that she lost the information papers and booklet given to her regarding her up coming colonoscopy. Pt requests a new set be mailed to her. documented in this encounter Plan of Treatment Upcoming Encounters Date Type Specialty Care Team Description 11/18/2019 Procedure Only Endoscopy Judson Lloyd MD [address] [place] [address] [phone] 11/18/2019 Procedure Only Endoscopy Judson Lloyd MD [address] [place] [address] [phone] 11/22/2019 Nutrition Services Gastroenterology Nita Enriquez, RDN [address] [place] [address] [facility] [place] [address] [phone] 11/25/[address] 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
--- OUTSIDE RECORDS SUMMARY | 2023-06-18 03:31 | External Medical Summary | Summary of Care ---
Author Name Unknown Organization [place] [address] Care Team Providers Care Finished Goods Stock Clerk Name Role Phone Marcela Pinto MD Primary Care Provider [phone] Reason for Visit * Reason Comments case management HERMAN week #1 Encounter Details Date Type Department Care Team Description 10/05/2019 Senior Product Designer Telephone Care Coordination [address] [place] [address] Amy Parker LPN case management (HERMAN week #1 ) Allergies Active Allergy Reactions Severity Noted Date Comments Valsartan 07/10/2010 Enalapril 05/21/2006 Escitalopram Oxalate Nausea/vomiting 10/11/2009 Nauseated Iodinated Diagnostic Agents Nausea/vomiting 05/2010 IV Contrast Lisinopril 05/21/2006 Metoprolol Tartrate 11/18/2006 Made pulse low Maxwell Oil-Black Currant-Vit E 07/10/2010 Verapamil 03/21/2004 Bupropion Hcl 10/30/2009 Makes pt sick in the stomach documented as of this encounter (statuses as of 10/05/2019) Medications Medication Sig Dispensed Refills Start Date [...] less than 7.0% ([facility]) USE TO TEST BLOOD SUGAR 4 TIMES [...] FOR NAUSEA 60 Tab 5 11/24/2018 Active RaNITidine HCl 300 MG Tablet Take 0.5 Tabs by mouth at bedtime. 90 Tab 1 11/25/2018 Active Additional information Patient not taking. Reported on 08/26/2019 2:18 PM glimepiride (AMARYL) 4 MG TabletIndications:Ty pe 2 diabetes mellitus with hemoglobin A1c goal of less than 7.5% (HCC) Take 0.5 Tabs by mouth daily before breakfast. 90 Tab 3 01/05/2019 Active dicyclomine (BENTYL) 20 MG TabletIndications:Ch ronic constipation TAKE 1 TABLET BY MOUTH EVERY DAY 90 Tab 2 02/08/2019 Active COMBIVENT RESPIMAT 20-100 MCG/ACT InhalerIndications:A sthma [...] Active dilTIAZem HCl ER Beads 360 MG [id number]:HTN, goal below 130/80 TAKE 1 CAPSULE BY [...] EVERY DAY 90 Tab 1 08/12/2019 Active predniSONE (DELTASONE) 10 MG TabletIndications:Ch ronic maxillary sinusitis,Otalgia of both ears Take 5 tabs for 2 days, 4 tabs for 2 days, 3 tabs for 2 days, 2 tabs for 2 days 1 tab for 2 days 30 Tab 0 08/26/2019 Active fluticasone (FLONASE) 50 MCG/ACT nasal sprayIndications:Chr onic maxillary sinusitis,Otalgia of both ears Administer 2 Sprays into each nostril daily. 1 Bottle 11 08/26/2019 Active Terazosin HCl 2 MG Capsule TAKE 1 CAPSULE BY MOUTH EVERY DAY 90 Cap 1 09/07/2019 Active omeprazole (PRILOSEC) 20 MG CPDRIndications:Isch emic colitis (HCC) TAKE 1 CAPSULE BY MOUTH TWICE A DAY 180 Cap 1 09/15/2019 Active HYDROcodone-acetamin ophen 5-325 mg per tab 5-325 MG per tabletIndications:Ge neralized osteoarthritis Take 1 Tab by mouth every 6 hours as needed for Pain, Mild. 120 Tab 0 09/17/2019 Active zafirlukast (ACCOLATE) 20 MG TabletIndications:As thma with severity to be determined TAKE 1 TABLET BY MOUTH EVERY DAY 90 Tab 1 09/23/2019 Active traZODone (DESYREL) 50 MG TabletIndications:GA D (generalized anxiety disorder) TAKE 1 TABLET BY MOUTH EVERYDAY AT BEDTIME 90 Tab 1 09/27/2019 Active documented as of this encounter (statuses as of 10/05/2019) Active Problems Problem Noted Date COPD, group B, by GOLD 2017 classificati on 07/26/2019 Overview: Per COPD GOLD Classification HECTOR (generalized anxiety disorder) 07/09 Body mass index (BMI) of 40.0 to 44.9 in adult 07/20/2018 Overview: Per Obesity protocol #1 Ischemic colitis 10/01/2017 Irritable bowel syndrome with [...] as of this encounter (statuses as of 10/05/2019) Resolved Problems Problem Noted Date Resolved Date Lower GI bleed 04/21/2017 01/05/2019 Severe obesity with body mas s index (BMI) of 35.0 to 39.9 with serious comorbidity 05/15/2016 08/28/2018 Overview: ICD-10 update of inactive diagnosis DM (diabetes mellitus), type 2 08/07/2015 0 06/25/2017 Nausea 09/05/2012 06/25/2017 Overview: ICD-10 update of inactive term HTN, GOAL BELOW 140/80 06/01/2012 6 Overview: Per HTN Protocol #27. Hypoxemia 10/08/2011 10/30/2015 Genetic Sleep Disorder Research Other*[id number] 07/25/2011 05/15/2016 Diverticulitis of colon 07/25/2011 01/06/20 19 COPD, moderate 07/19/2011 07/28/2019 Overview: Dr hBatti every 6 months Obesity, morbid (more than [...] as of this encounter (statuses as of 10/05/2019) Immunizations Name Administration Dates Next Due Hepatitis [...] encounter Miscellaneous Notes * Telephone Encounter - Amy Parker LPN - 10/05/2019 9:38 AM EST Case Management Assessment HERMAN week #1 Is this call for a hospital, alf or rehab facility discharge to home? Yes hospital S: Reports: Spoke with patient. She is doing okay. Still not feeling that great. Slight improvement. Still withnausea, but believes it may be coming more from her abx. She is drinking lots of water and eating abland diet. Taking zofran as needed. Advised to try eating small frequent meals of bland foods to keep something always in stomach to see if that helps with the nausea. Denies any vomiting or abdominal pain. Denies any CM needs going into holiday Chest pain denies Increased shortness of breath: denies Chills / Sweats / Fever: denies chills/sweats and denies fever Fall: denies any falls since last Care Management encounter Appetite: denies muscle cramps, dizziness, fainting Bowel: denies problems Bladder: denies problems Medications: takes all medications as prescribed. and denies side effects Discussed insurance with patient. She is medicare/medicaid. Explained that [facility] is not her only option-[facility] would be an option for her. She states she did receive a letter from [facility] with the customer service phone number on it. Encouraged patient to call [email or web address] service to compare. O: Phone visit for HERMAN week #1. Medications: takes all medications as prescribed. and denies side effects = Identified Barriers: Older than 70 years FUNCTIONAL [...] to communicate, understand instructions, process information. P: Senior Product Designer Interventions: Call with any worsening nausea, vomiting, abdominal pain, fever Call with any blood in stool Confirmed appointment 10/11/19 Reinforced safety education / fall prevention Reinforced medication regimen - timing / dosing / purpose PCP Notified of enrollment in CM/HM program: Yes SNP Member? No Re-evaluation of plan of care and progress towards goals achievement: Plan to call patient in 7-10 days to reassess and update plan of care Amy Parker LPN Outpatient Senior Product Designer documented in this encounter Plan of Treatment Upcoming Encounters Date Type Specialty Care Team Description 10/11/2019 Office Visit Family Medicine Cari Wynne PA-C [address] [facility] [place] [address] [phone] 10/11/2019 Nutrition Services Gastroenterology Nita Enriquez RDN [address] [place] [address] [place] [address] 10/14/2019 Office Visit Podiatry Region, [facility] [address] [place] [place] [address] 02/01/2020 Office Visit Internal Medicine Marcela Pinto MD [address] [facility] [place], [place] [address] [phone] 06/06/2020 Imaging Radiology Health Maintenance Due Date Last Done Comments Zoster Vaccines (2 of 3) 08/31/2012 07/06/2012 DIABETES-FOOT EXAM 01/06/2020 01/05/2019, 0 01/16/2018, 11/15/2016, Additional history exists DIABETES-HGBA1C EVERY 6 MONTHS 02/24/2020 08/26/2019, 08/12/2019, 03/22/2019, Additional history exists DXA-EVERY 5 YRS-USE SMARTSET# [id number] TO ORDER 05/01/2020 05/01/2015, 06/19/2010, 06/19/2010, Additional history exists DIABETES-URINE MICROALBUMIN EVERY 12 MONTHS 07/09/2020 07/09/2019, 03/22/2019, 12/25/2018, Additional history exists DIABETES-EYE EXAM 08/10/2020 08/10/2019, , 08/04/2017, Additional history exists COLONOSCOPY-EVERY 3 YRS AGES [...] Documents on File Type Date Recorded Patient Emissions Technician 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
--- OUTSIDE RECORDS SUMMARY | 2023-06-18 03:31 | External Medical Summary | Summary of Care ---
Author Name Unknown Organization [place] [address] Care Team Providers Care Can Worker Name Role Phone Marcela Pinto MD Primary Care Provider [phone] Reason for Visit * Reason Comments Follow Up ER f/u Encounter Details Date Type Department Care Team Description 10/19/2019 Office Visit General Internal Medicine [facility] [address] [place] [address] David Duke PA-C [address] [place] [address] Permanent atrial fibrillation*; Need for shingles vaccine; DM type 2 nursing care encounter ([facility]); Morbid obesity with BMI of 40.0-44.9, adult ([facility]); COPD, group B, by GOLD 2017 classification ([facility]); Gastro-esophageal reflux disease without esophagitis; Type 2 diabetes mellitus with diabetic neuropathy, unspecified ([facility]); HTN, goal below 140/90; Hyperlipidemia with target LDL less than 100 Allergies Active Allergy Reactions Severity Noted Date Comments Valsartan 07/10/2010 Enalapril 05/21/2006 Escitalopram Oxalate Nausea/vomiting 10/11/2009 Nauseated Iodinated Diagnostic Agents Nausea/vomiting 05/2010 IV Contrast Lisinopril 05/21/2006 Metoprolol Tartrate 11/18/2006 Made pulse low Mineral Oil-Black Currant-Vit E 07/10/2010 Verapamil 03/21/2004 Bupropion Hcl 10/30/2009 Makes pt sick in the stomach documented as of this encounter (statuses as of 10/19/2019) Medications Medication Sig Dispensed Refills Start Date [facility] USE TO TEST BLOOD SUGAR 4 TIMES [...] 3 01/05/2019 Active dicyclomine (BENTYL) 20 MG TabletIndications:C hronic constipation TAKE 1 TABLET BY MOUTH EVERY DAY 90 Tab 2 02/08/2019 Active COMBIVENT RESPIMAT 20-100 MCG/ACT InhalerIndications: Asthma [...] Active dilTIAZem HCl ER Beads 360 MG UA30Omtsztonkvh:HTN , goal below 130/80 TAKE 1 CAPSULE [...] A DAY 180 Cap 1 09/15/2019 Active HYDROcodone-acetami nophen 5-325 mg per tab 5-325 MG per tabletIndications:G eneralized osteoarthritis Take 1 Tab by mouth every 6 hours as needed for Pain, Mild. 120 Tab 0 09/17/2019 Active zafirlukast (ACCOLATE) 20 MG TabletIndications:A sthma [...] our office. 1 Each 1 10/19/2019 Active RaNITidine HCl 300 MG Tablet Take 0.5 Tabs by mouth at bedtime. 90 Tab 1 11/25/2018 0 Discontinu ed(Patient preference /discontin uation) predniSONE (DELTASONE) 10 MG TabletIndications:C hronic maxillary sinusitis,Otalgia of both ears Take 5 tabs for 2 days, 4 tabs for 2 days, 3 tabs for 2 days, 2 tabs for 2 days 1 tab for 2 days 30 Tab 0 08/26/2019 0 Discontinu ed(Patient preference /discontin uation) documented as of this encounter (statuses as of 10/19/2019) Active Problems Problem Noted Date Morbid obesity [...] as of this encounter (statuses as of 10/19/2019) Resolved Problems Problem Noted Date Resolved Date [...] Hypoxemia 10/08/2011 10/30/2015 Genetic Sleep Disorder Research Other*[id number] 07/25/2011 05/15/2016 Diverticulitis of colon 07/25/2011 01/06/20 [...] as of this encounter (statuses as of 10/19/2019) Immunizations Name Administration Dates Next Due Hepatitis [...] Sign Reading Time Taken Comments Blood Pressure 114/60 10/19/2019 3:06 PM EST Pulse 80 10/19/2019 3:06 PM EST Temperature 37.1 C (98.7 F) 10/19/2019 3:06 PM ES T Respiratory Rate 16 10/19/2019 3:06 PM EST Oxygen Saturation - - Inhaled Oxygen Concentration - - Weight 111.3 kg (245 lb 6.4 oz) 10/19/2019 3:06 PM EST Height 165.1 cm (5' 5") 10/19/2019 3:06 PM EST Body Mass Index 40.84 10/19/2019 3:06 PM EST documented in this encounter Patient Instructions * Patient Instructions* Italia Dial LPN - 10/19/2019 3:09 PM EST Diabetes: Keeping Feet Healthy Inspect [...] calluses yourself. Talk to your doctor or annealing oven operator (a doctor who specializes in foot care) [...] the area doesnt appear to be healing. [id number] [employer], [address] [place] [address], [place] [address]. All rights reserved. This information is not intended as a substitute for professional medical care. Always follow your healthcare professional's instructions. documented in this encounter Progress Notes * David Duke PA-C - 10/19/2019 3:18 PM EST Subjective: Nina Harrington is a 78 year old female. Chief Complaint Patient presents with Follow Up ER f/u HPI: 78 y/o female with COPD, JORDAN on 4L of O2, HTN, HLD, DM II presents for recent hospital admission at the middle of September at [facility] for acute sigmoid diverticulitis where she was found to have atrial fibrillation incidentally. Did have echocardiogram and consultation with cardiology who recommended Cardizem for rate control. Did recommend against chronic anticoagulating for stroke prophylaxisdue to bleeding risk in patient. Was to have bilateral cataract surgery but business process representative, Dr. Hurtado, recommended holding off on the surgery at her most recent follow up with him after hospital discharge. States she is able to lay still in order to perform surgery. Has baseline SOB from asthma/COPD. Is not worse. Denies chest pain, palpitations, worsening SOB. 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 Allergic rhinitis J30.9 Nocturnal hypoxia G47.34 Sleep apnea, obstructive G47.33 Incisional hernia K43.2 ACEI/ARB contraindicated [id number] HTN, goal below 140/90 I10 Hyperlipidemia with target LDL less than 100 E78.5 Controlled substance agreement signed Z79.899 Type 2 diabetes mellitus with hemoglobin A1c goal of less than 7.5% (HCC) E11.9 Hypercalcemia E83.52 Elevated plasma metanephrines R79.89 Irritable bowel syndrome with constipation K58.1 Ischemic colitis ([facility]) K55.9 Body mass index (BMI) of 40.0 to 44.9 in adult ([facility]) Z68.41 HECTOR (generalized anxiety disorder) F41.1 COPD, group B, by GOLD 2017 classification ([facility]) J44.9 Morbid obesity with BMI of 40.0-44.9, adult ([facility]) E66.01, Z68.41 Gastro-esophageal reflux disease without esophagitis K21.9 Current Outpatient Medications Medication Sig Dispense Refill zoster vac recomb adjuvanted (SHINGRIX) 50 MCG/0.5ML [...] MOUTH TWICE A DAY 180 Cap 1 Terazosin HCl 2 MG Capsule TAKE 1 CAPSULE BY MOUTH EVERY DAY 90 Cap 1 fluticasone (FLONASE) 50 MCG/ACT nasal spray Administer 2 Sprays into each nostril daily. 1 Bottle 11 atorvaSTATin (LIPITOR) 40 MG Tablet TAKE 1 TABLET BY MOUTH EVERY DAY 90 Tab 1 albuterol sulfate (PROVENTIL) (2.5 MG/3ML) 0.083% nebulizer solution USE ONE NEBULIZER TREATMENT TWICE A DAY DIRECTED FOR WORSENING ASTHMA. J45.909, J44.9 225 mL 1 dilTIAZem HCl ER Beads 360 MG CP24 TAKE 1 CAPSULE BY MOUTH EVERY DAY 90 Cap 1 ferrous sulfate (FEOSOL) 325 (65 FE) MG Tablet One tablet every other day 60 Tab 11 docusate sodium (COLACE) 100 MG Capsule Take 1 Cap by mouth daily. 90 Cap 0 COMBIVENT RESPIMAT 20-100 MCG/ACT Inhaler TAKE 1 PUFF BY MOUTH 4 TIMES A DAY 4 g 11 dicyclomine (BENTYL) 20 MG Tablet TAKE 1 TABLET BY MOUTH EVERY DAY 90 Tab 2 glimepiride (AMARYL) 4 MG Tablet Take 0.5 Tabs by mouth daily before [...] DAILY NEEDED FOR EDEMA 30 Tab 11 KLOR-CON M20 20 MEQ [...] DIAGNOSIS CODE OF E11.9 100 Strip 5 oxygen GAS Use 4 L/min(Oxygen) as directed. Glucose Blood (YEIMY COUNTOUR TEST) STRP R73.09/hgba1c 7.2 Tests up to 3 times daily 100 Strip 5 Probiotic Product (PROBIOTIC DAILY) Capsule Take 1 Cap by mouth daily. AZOPT 1 % OP SUSP INSTILL 1 DROP BY OPHTHALMIC ROUTE 2 TIMES EVERY DAY INTO BOTH EYES 4 LUMIGAN 0.01 % OP SOLN INSTILL 1 DROP BY TOPICAL ROUTE EVERY BEDTIME 4 SPIRIVA HANDIHALER 18 MCG IN CAPS INHALE 1 CAPSULE VIA HAND HELD INHALER ONCE DAILY AT THE SAMETIME EVERY DAY 30 Cap 5 LANCETS MISC Use as directed to test blood sugar once daily--Dx code 250.00 100 Each 3 VITAMIN D 1000 UNITS PO TABS one tablet daily doxycycline 100 MG Tablet Take 100 mg by mouth 2 times a day. 4 traZODone (DESYREL) 50 MG Tablet TAKE 1 TABLET BY MOUTH EVERYDAY AT BEDTIME 90 Tab 1 polyethylene glycol 3350 (MIRALAX) 255 gram powder Take 17 g by mouth 2 times a day. One cap full in juice, to effect 1 stool per day. . 2 Bottle 3 Past Medical History: Diagnosis Date ACEI/ARB contraindicated Asthma Carpal tunnel syndrome DM type 2, goal: symptom mgmt (HCC) Generalized osteoarthritis HTN, goal below 140/90 Mixed dyslipidemia Review of patient's allergies indicates: Allergen Reactions Diovan [Valsartan] Enalapril Escitalopram Oxalate Nausea/vomiting Nauseated Iodinated Diagnostic Agents Nausea/vomiting IV Contrast Lisinopril Metoprolol Tartrate Made pulse low Mineral Oil-Black Currant-Vit E Verapamil Wellbutrin [Bupropion Hcl] Makes pt sick in the stomach All other review of systems reviewed and negative other than mentioned in HPI. Objective: BP 114/60 | Pulse 80 | Temp (Src) 98.7 (Tympanic) | Resp 16 | Ht 5' 5" (1.651m) | Wt 245 lbs 6.4 oz(111.313kg) | BMI 40.84 kg/m | BSA 2.26 m Physical Exam: Constitutional: No acute distress. Head: normocephalic, atraumatic Eyes: PERRLA with intact EOM, no scleral icterus, injection, or nystagmus noted. Cardiovascular: irregularly irregular without RMG. No carotid bruits. Mild peripheral edema. Pulmonary: Lungs diminished without rales, rhonchi, or wheezing. No intercostal retractions. Abdomen: Bowel sounds present x4, soft, nontender. No organomegaly, abdominal bruits, or masses. ASSESSMENT: Permanent atrial fibrillation (Primary) - Continue cardizem and cardiology recommendation. ASA 81 mg. Not a candidate for chronic anticoagulation. Would leave clearance for cataract surgery up to cardiology, but I do not know a reason why she could not proceed with cataract surgery. DM type 2 nursing care encounter ([facility]) - DIABETES FOOT EXAM Morbid obesity with BMI of 40.0-44.9, adult ([facility]) Diet/exercise counseling. COPD, group B, by GOLD 2017 classification ([facility]) - Follows with pulmonology. Continue Spiriva, albuterol, combivent. Gastro-esophageal reflux disease without esophagitis Has EGD and Colonoscopy scheduled to follow up on chronic anemia, UGI symptoms. Colonoscopy scheduled for 6 weeks post diverticulitis episode. Type 2 diabetes mellitus with diabetic neuropathy, unspecified ([facility]) - Continue glimeperide. A1C at goal HTN, goal below 140/90 Continue therapay per cardiology. Hyperlipidemia with target LDL less than 100 Need for shingles vaccine - zoster vac recomb adjuvanted (SHINGRIX) 50 MCG/0.5ML injection; Inject 0.5 mL into a large musclenow and repeat dose in 60 to 180 days. Please fax date this was given to our office. David Duke PA-C * Italia Dial LPN - 10/19/2019 3:09 PM EST DM Foot Exam completed today. Provider aware. Italia Dial LPN Socks and Shoes Removed for Annual [...] surface of foot documented in this encounter Nursing Notes * Italia Dial LPN - 10/19/2019 3:02 PM EST Chief Complaint Patient presents with Follow Up ER f/u Cataract surgery was cancelled by business process representative due to afib. States this visit was supposed to be pre-op physical and ER f/u with PCP. Was in hospital for 4 days a week before [facility]oyd with diverticulitis, was bleeding rectally. States she has been doing better since discharge. Still feeling sick in her stomach/nauseated some, states it occurs randomly, at least once a day. States her ankles have really been swelling. Patient appears shaky today. documented in this encounter Plan of Treatment Upcoming Encounters Date Type Specialty Care Team Description 11/18/2019 Procedure Only Endoscopy Judson Lloyd MD [address] [place] [address] [phone] 11/18/2019 Procedure Only Endoscopy Judson Lloyd MD [address] [place] [address] [phone] 11/22/2019 Nutrition Services Gastroenterology Nita Enriquez, AKIKO [address] [place] [address] [place] [address] [phone] 11/25/2019 Office Visit Podiatry [facility] [address] [place] [address] [place] [id number] 02/01/2020 Office Visit Internal Medicine Marcela Pinto MD [address] [facility] [place] [address] [phone] 06/06/2020 Imaging Radiology Health Maintenance Due Date [...] this encounter Visit Diagnoses Diagnosis Permanent atrial fibrillation- Primary Atrial fibrillation Need for shingles vaccine Need for prophylactic vaccination and inoculation against other viral diseases DM type 2 nursing care encounter (HCC) Type II or unspecified type diabetes mellitus without mention of complication, not stated as uncontrolled Morbid obesity with BMI of 40.0-44.9, adult (HCC) Morbid obesity COPD, group B, by GOLD 2017 classification ([facility]) Gastro-esophageal reflux disease without esophagitis Esophageal reflux Type 2 diabetes mellitus with diabetic neuropathy, unspecified (HCC) HTN, goal below 140/90 Unspecified essential hypertension Hyperlipidemia with target LDL less than 100 Other and unspecified hyperlipidemia documented in this encounter Advance Directives Documents on File Type Date Recorded Patient Radiologic Technician 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
--- OUTSIDE RECORDS SUMMARY | 2023-06-18 03:31 | External Medical Summary | Summary of Care ---
Author Name Unknown Organization [place] [address] Care Team Providers Care Emergency Response Technician Name Role Phone Marcela Pinto MD Primary Care Provider [phone] Reason for Visit * Reason Comments case management [facility] Encounter Details Date Type Department Care Team Description 10/14/2019 Grain Mixer Telephone Family Practice [facility] [address] [place] [address] Cici Gama, BIJAL [address] [place] [address] [place] [address] case management ([facility]) Allergies Active Allergy Reactions Severity Noted Date Comments Valsartan 07/10/2010 Enalapril 05/21/2006 Escitalopram Oxalate Nausea/vomiting 10/11/2009 Nauseated Iodinated Diagnostic Agents Nausea/vomiting 05/2010 IV Contrast Lisinopril 05/21/2006 Metoprolol Tartrate 11/18/2006 Made pulse low [place] Oil-Black Currant-Vit E 07/10/2010 Verapamil 03/21/2004 Bupropion Hcl 10/30/2009 Makes pt sick in the stomach documented as of this encounter (statuses as of 10/14/2019) Medications Medication Sig Dispensed Refills Start Date [...] [facility]) USE TO TEST BLOOD SUGAR 4 TIMES [...] Active dilTIAZem HCl ER Beads 360 MG [id number]:HTN, goal below 130/80 TAKE 1 CAPSULE BY [...] as of this encounter (statuses as of 10/14/2019) Active Problems Problem Noted Date COPD, group [...] as of this encounter (statuses as of 10/14/2019) Resolved Problems Problem Noted Date Resolved Date [...] Hypoxemia 10/08/2011 10/30/2015 Genetic Sleep Disorder Research Other*[id number] 07/25/2011 05/15/2016 Diverticulitis of colon 07/25/2011 01/06/20 [...] as of this encounter (statuses as of 10/14/2019) Immunizations Name Administration Dates Next Due Hepatitis [...] Telephone Encounter - Cici Gama RN - 10/14/2019 4:26 PM EST Attempted to contact patient for HERMAN week #2 follow up assessment. No answer. Left message on [employer]. [employer]. documented in this encounter Plan of Treatment Upcoming Encounters Date Type Specialty Care Team Description 10/19/2019 Office Visit Internal Medicine David Duke PA-C [address] [facility] [place], [place] [address] [phone] 11/18/2019 Procedure Only Endoscopy Judson Lloyd MD [address] [facility] [place] [address] [phone] 11/18/2019 Procedure Only Endoscopy Judson Lloyd MD [address] [facility] [place], [place] [address] [phone] 11/22/2019 Nutrition Services Gastroenterology Nita Enriquez, AKIKO [address] [place] [address] [place] [address] [phone] 11/25/2019 Office Visit Podiatry Region, [facility] [address] [place] [address] [place] [id number] 02/01/2020 Office Visit Internal Medicine Marcela Pinto MD 200 [place] [address] [phone] 06/06/2020 Imaging Radiology Health Maintenance Due Date [...] Documents on File Type Date Recorded Patient Affiliate Marketing Coordinator 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
--- OUTSIDE RECORDS SUMMARY | 2023-06-18 03:31 | External Medical Summary | Summary of Care ---
Author Name Unknown Organization [place] [address] Care Team Providers Care Hospice Case Manager Name Role Phone Marcela Pinto MD Primary Care Provider [phone] Reason for Referral * Medication Prior Authorization (Routine) Status Reason Specialty Diagnoses / Procedures Re ferred By Contact Referred To Contact Closed Diagnoses Generalized osteoarthritis Marcela Pinto MD 200 [place] [address] Reason for Visit * Reason Comments Medication Refill Encounter Details Date Type Department Care Team Description 10/27/2019 Refill General Internal Medicine [facility] [address] [place] [address] Marcela Pinto MD [address] [place] [address] [phone] GENERAL OSTEOARTHROSIS Allergies Active Allergy Reactions Severity Noted Date Comments Valsartan 07/10/2010 Enalapril 05/21/2006 Escitalopram Oxalate Nausea/vomiting 10/11/2009 Nauseated Iodinated Diagnostic Agents Nausea/vomiting 05/2010 IV Contrast Lisinopril 05/21/2006 Metoprolol Tartrate 11/18/2006 Made pulse low [place] Oil-Black Currant-Vit E 07/10/2010 Verapamil 03/21/2004 Bupropion Hcl 10/30/2009 Makes pt sick in the stomach documented as of this encounter (statuses as of 10/27/2019) Medications Medication Sig Dispensed Refills Start Date [...] Active dilTIAZem HCl ER Beads 360 MG [id number]:HTN , goal below 130/80 TAKE 1 CAPSULE [...] our office. 1 Each 1 10/19/2019 Active HYDROcodone-acetami nophen 5-325 mg per tab 5-325 MG per tabletIndications:G eneralized osteoarthritis Take 1 Tab by mouth every 6 hours as needed for Pain, Mild. 120 Tab 0 10/27/2019 Active HYDROcodone-acetami nophen 5-325 mg per tab 5-325 MG per tabletIndications:G eneralized osteoarthritis Take 1 Tab by mouth every 6 hours as needed for Pain, Mild. 120 Tab 0 09/17/2019 0 Discontinu ed(Refill) documented as of this encounter (statuses as of 10/27/2019) Active Problems Problem Noted Date Morbid obesity [...] as of this encounter (statuses as of 10/27/2019) Resolved Problems Problem Noted Date Resolved Date [...] Hypoxemia 10/08/2011 10/30/2015 Genetic Sleep Disorder Research Other*[id number] 07/25/2011 05/15/2016 Diverticulitis of colon 07/25/2011 01/06/20 [...] as of this encounter (statuses as of 10/27/2019) Immunizations Name Administration Dates Next Due Hepatitis [...] encounter Miscellaneous Notes * Telephone Encounter - Pinto, Marcela N, MD - 10/27/2019 9:11 PM EST Signed Prescriptions: Disp Refills HYDROcodone-acetaminophen 5-325 mg per tab*120 Tab0 Sig: Take 1 Tab by mouth every 6 hours as needed for Pain, Mild. Authorizing Provider: MARCELA PINTO * Telephone Encounter - Ruben Chantel NICOL Montero - 10/27/2019 9:36 AM EST Pt calling to get refill Pending Prescriptions: Disp Refills HYDROcodone-acetaminophen 5-325 mg per ta*120 Tab0 Sig: Take 1 Tab by mouth every 6 hours as needed for Pain, Mild. 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) E11.9 Hypercalcemia E83.52 Elevated plasma metanephrines R79.89 Irritable bowel syndrome with constipation K58.1 Ischemic colitis ([facility]) K55.9 Body mass index (BMI) of 40.0 to 44.9 in adult ([facility]) Z68.41 HECTOR (generalized anxiety disorder) F41.1 COPD, group B, by GOLD 2017 classification ([facility]) J44.9 Morbid obesity with BMI of 40.0-44.9, adult ([facility]) E66.01, Z68.41 Gastro-esophageal reflux disease without esophagitis K21.9 Labs: CREATININE-OUTSIDE LAB(MG/DL) Jessica Dt/ Resulted Value Status 10/17/19 10/18/19 0.93 FINAL POTASSIUM-OUTSIDE LAB(MMOL/L) Jessica Dt/Tm Resulted Value Status 10/17/19 10/18/19 4.3 FINAL TSH - OUTSIDE LAB(MCLU/ML) Jessica Dt/Tm Resulted Value Status 08/12/19 08/12/19 0.448 FINAL LDL (CALCULATED)-OUTSIDE LAB(MG/DL) Jessica Dt/Tm Resulted Value Status 08/12/19 08/12/19 94.80 FINAL LDL (DIRECT MEASURE)-OUTSIDE LAB(MG/DL) Jessica Dt/Tm Resulted Value Status 08/12/19 08/12/19 100 FINAL ALT(U/L) Jessica Dt/Tm Resulted Value Status 07/09/19 1:48P 07/09/19 13 FINAL Hemoglobin AIC Results: HEMOGLOBIN, A1C(%) Jessica Dt/Tm Resulted Value Status 08/26/19 2:55P 08/26/19 6.6* FINAL HEMOGLOBIN, R5C-STELTWG LAB(%) Jessica Dt/Tm Resulted Value Status 08/12/19 08/12/19 6.6* FINAL 03/22/19 04/02/19 6.7* FINAL documented in this encounter Plan of Treatment Upcoming Encounters Date Type Specialty Care Team Description 11/18/2019 Procedure Only Endoscopy Judson Lloyd MD [address] [place] [address] [phone] 11/18/2019 Procedure Only Endoscopy Judson Lloyd MD [address] [place] [address] [phone] 11/22/2019 Nutrition Services Gastroenterology Nita Enriquez RDN [address] [place] [address] [place] [address] [phone] 11/25/2019 Office Visit Podiatry Region, [facility] [address] [place] [address] [place] [id number] 02/01/2020 Office Visit Internal Medicine Marcela Pinto MD [address] [place] [address], [place] [address] [phone] 06/06/2020 Imaging Radiology Health Maintenance Due Date [...] on File Type Date Recorded 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
--- OUTSIDE RECORDS SUMMARY | 2023-06-18 03:31 | External Medical Summary | Summary of Care ---
Author Name Unknown Organization [place] [address] Care Team Providers Care Commissioner Of Relocation Services Name Role Phone Marcela Pinto MD Primary Care Provider [phone] Reason for Visit * Reason Comments Appointment colonoscopy Encounter Details Date Type Department Care Team Description 09/27/2019 Telephone Gastroenterology, [facility] 132 [place] [place] [address] To Cueva CRNP 132 [place] [address] Appointment (colonoscopy) Allergies Active Allergy Reactions Severity Noted Date Comments Valsartan 07/10/2010 Enalapril 05/21/2006 Escitalopram Oxalate Nausea/vomiting 10/11/2009 Nauseated Iodinated Diagnostic Agents Nausea/vomiting 05/2010 IV Contrast Lisinopril 05/21/2006 Metoprolol Tartrate 11/18/2006 Made pulse low [place] Oil-Black Currant-Vit E 07/10/2010 Verapamil 03/21/2004 Bupropion Hcl 10/30/2009 Makes pt sick in the stomach documented as of this encounter (statuses as of 10/11/2019) Medications Medication Sig Dispensed Refills Start Date [...] than 7.0% ([facility]) USE TO TEST BLOOD SUGAR 4 [...] Active dilTIAZem HCl ER Beads 360 MG [id number]:HTN, goal below 130/80 TAKE 1 CAPSULE BY [...] as of this encounter (statuses as of 10/11/2019) Active Problems Problem Noted Date COPD, group [...] mean 85%, <89% 6:18 hrs, OSREN 18.7 AHP Sleep apnea, obstructive 10/02/2011 Overview: 4 LPM qhs 09/27/11 2 LPM -- low 45%, mean 85%, <89% 6:18 hrs, SOREN 18.7 Refusing CPAP AHP Allergic rhinitis 07/19/2011 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 Asthma with severity to be determined Generalized osteoarthritis ACEI/ARB contraindicated documented as of this encounter (statuses as of 10/11/2019) Resolved Problems Problem Noted Date Resolved Date [...] Hypoxemia 10/08/2011 10/30/2015 Genetic Sleep Disorder Research Other*[id number] 07/25/2011 05/15/2016 Diverticulitis of colon 07/25/2011 01/06/20 [...] as of this encounter (statuses as of 10/11/2019) Immunizations Name Administration Dates Next Due Hepatitis [...] encounter Miscellaneous Notes * Telephone Encounter - Cristiane Rapp OSA - 10/11/2019 9:58 AM EST Patient is scheduled for 11/18 at [facility] * Telephone Encounter - Charlene Thomas OSA - 09/28/2019 8:19 AM EST LMHome for pt to call and schedule. * Telephone Encounter - To Cueva CRNP - 09/27/2019 4:20 PM EST Pt also c/o nausea. Dr. Lloyd recommends EGD with colonoscopy. Both orders placed. Recommend completing at [facility]. * Telephone Encounter - Frank Clay OSA - 09/27/2019 10:45 AM EST Pt inhouse at [facility] for diverticulitis. Needs OP colon in 6-8 wks per To. Please call to schedule. To - please place order. documented in this encounter Plan of Treatment Upcoming Encounters Date Type Specialty Care Team Description [facility] [address] [place] [address] [place] [address] 10/19/2019 Office Visit Internal Medicine David Duke PA-C [address] [place] [address] [phone] 11/18/2019 Procedure Only Endoscopy Judson Lloyd MD 132 [place] [address] 11/18/2019 Procedure Only Endoscopy Judson Lloyd MD [address] [place] [address] 11/22/2019 Nutrition Services Gastroenterology Nita Enriquez, RDN [address] [place] [address] [place] [address] [phone] 02/01/2020 Office Visit Internal Medicine Marcela Pinto MD [address] [place] [address] [phone] 06/06/2020 Imaging Radiology Scheduled Orders Name Type Priority Associated Diagnoses Orde r Schedule EGD, FLEXIBLE, DIAGNOSTIC Procedures Routine Nausea Expected: 11/08/2019, Expires: 10/28/2020 COLONOSCOPY, DIAGNOSTIC (RECTUM) Procedures Routine Diverticulitis of large intestine without perforation or abscess with bleeding Expected: 11/08/2019, Expires: 10/28/2020 Health Maintenance Due Date Last Done Comments [...] as of this encounter Visit Diagnoses Diagnosis Nausea- Primary Nausea alone Diverticulitis of large intestine without perforation or abscess with bleeding Diverticulitis of colon with hemorrhage documented in this encounter Advance Directives Documents on File Type Date Recorded 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
--- OUTSIDE RECORDS SUMMARY | 2023-06-18 03:31 | External Medical Summary | Summary of Care ---
Author Name Unknown Organization [place] [address] Care Team Providers Care Glass Deposition Tender Name Role Phone Marcela Pinto MD Primary Care Provider [phone] Reason for Visit * Reason Comments case management HERMAN week #4 Encounter Details Date Type Department Care Team Description 10/29/2019 Bag Bundler Telephone Care Coordination [address] [place] [address] Amy Parker LPN case management (HERMAN week #4) Allergies Active Allergy Reactions Severity Noted Date Comments Valsartan 07/10/2010 Enalapril 05/21/2006 Escitalopram Oxalate Nausea/vomiting 10/11/2009 Nauseated Iodinated Diagnostic Agents Nausea/vomiting 05/2010 IV Contrast Lisinopril 05/21/2006 Metoprolol Tartrate 11/18/2006 Made pulse low [place] Oil-Black Currant-Vit E 07/10/2010 Verapamil 03/21/2004 Bupropion Hcl 10/30/2009 Makes pt sick in the stomach documented as of this encounter (statuses as of 10/29/2019) Medications Medication Sig Dispensed Refills Start Date [...] Active dilTIAZem HCl ER Beads 360 MG [id number]:HTN, goal below 130/80 TAKE 1 CAPSULE BY [...] as of this encounter (statuses as of 10/29/2019) Active Problems Problem Noted Date Morbid obesity [...] as of this encounter (statuses as of 10/29/2019) Resolved Problems Problem Noted Date Resolved Date [...] Hypoxemia 10/08/2011 10/30/2015 Genetic Sleep Disorder Research Other*[id number] 07/25/2011 05/15/2016 Diverticulitis of colon 07/25/2011 01/06/20 [...] as of this encounter (statuses as of 10/29/2019) Immunizations Name Administration Dates Next Due Hepatitis [...] Telephone Encounter - Amy Parker LPN - 10/29/2019 10:41 AM EST Assisting primary CM Cici Gama Case Management Assessment HERMAN week #4 Is this call for a hospital, prison or rehab facility discharge to home? Yes hospital S: Reports: Spoke with patient. She is doing well. Dr. Bhatti starting her on Advair SOB still with exertion-relieved with rest Still getting occasional nausea Denies any vomiting HH coming 1x weekly [place] [employer] coming today to discuss MOW Now has [employer] insurance-confirmed with patient Has f/u on 11/11 for Watchman eval, then appt with Cardiology 11/16 O: Phone visit for HERMAN week #4. Medications: takes all medications as prescribed. and denies side effects Identified Barriers: Older than 70 years FUNCTIONAL [...] to communicate, understand instructions, process information. P: Bag Bundler Interventions: Call with any needs Will be closing d/t insurance change PCP Notified of enrollment in CM/HM program: Yes SNP Member? No Re-evaluation of plan of care and progress towards goals achievement: Plan to close d/t insurance change Amy Parker LPN Outpatient Bag Bundler documented in this encounter Plan of Treatment Upcoming Encounters Date Type Specialty Care Team Description 11/18/2019 Procedure Only Endoscopy Judson Lloyd MD [address] [place] [address] [phone] 11/18/2019 Procedure Only Endoscopy Judson Lloyd MD [address] [place] [address] [phone] 11/22/2019 Nutrition Services Gastroenterology Nita Enriquez RDN [address] [place] [address] [place] [address] [phone] 11/25/2019 Office Visit Podiatry [facility] [address] [place] [address] [place] [address] [phone] 02/01/2020 Office Visit Internal Medicine Marcela Pinto MD [address] [place] [address], [place] [address] [phone] 06/06/2020 Imaging Radiology Health Maintenance Due Date [...] Documents on File Type Date Recorded 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
--- OUTSIDE RECORDS SUMMARY | 2023-06-18 03:31 | External Medical Summary | Summary of Care ---
Author Name Unknown Organization [place] [address] Care Team Providers Care Plum Packer Name Role Phone Marcela Pinto MD Primary Care Provider Reason for Visit * Reason Comments case management HERMAN week #1 Encounter Details Date Type Department Care Team Description 10/05/2019 Quality Intern Telephone Care Coordination [address] [place] [address] Amy Parker LPN case management (HERMAN week #1 ) Allergies Active Allergy Reactions Severity Noted Date Comments Valsartan 07/10/2010 Enalapril 05/21/2006 Escitalopram Oxalate Nausea/vomiting 10/11/2009 Nauseated Iodinated Diagnostic Agents Nausea/vomiting 05/2010 IV Contrast Lisinopril 05/21/2006 Metoprolol Tartrate 11/18/2006 Made pulse low [place] Oil-Black Currant-Vit E 07/10/2010 Verapamil 03/21/2004 Bupropion Hcl 10/30/2009 Makes pt sick in the stomach documented as of this encounter (statuses as of 10/07/2019) Medications Medication Sig Dispensed Refills Start Date [...] Active dilTIAZem HCl ER Beads 360 MG [id number]:HTN, goal below 130/80 TAKE 1 CAPSULE BY [...] as of this encounter (statuses as of 10/07/2019) Active Problems Problem Noted Date COPD, group [...] as of this encounter (statuses as of 10/07/2019) Resolved Problems Problem Noted Date Resolved Date [...] Hypoxemia 10/08/2011 10/30/2015 Genetic Sleep Disorder Research Other*[id number] 07/25/2011 05/15/2016 Diverticulitis of colon 07/25/2011 01/06/20 [...] as of this encounter (statuses as of 10/07/2019) Immunizations Name Administration Dates Next Due Hepatitis [...] Telephone Encounter - Angelina Linder LPN - 10/07/2019 2:00 PM EST Spoke with patient to see if HD appt was needed still. She reports that she is doing well. Will finish her ABX tomorrow. Seeing Dr Gtz next . Active with Amy TRAVIS. Per Amy'ankit not on 10/05, will follow up in 7-10 days from then. Patient will call if she needs anything in the mean time. * Telephone Encounter - Amy Parker LPN - 10/05/2019 9:38 AM EST Case Management Assessment HERMAN week #1 Is this call for a hospital, shelter or rehab facility discharge to home? Yes [...] Explained that [facility] [email or web address] would be an option for her. She states she did receive a letter from [facility] with the [employer] service phone number on it. Encouraged patient to call [employer] service to compare. O: Phone visit for [...] to communicate, understand instructions, process information. P: Quality Intern Interventions: Call with any worsening nausea, vomiting, [...] plan of care Amy Parker LPN Outpatient Quality Intern documented in this encounter Plan of Treatment Upcoming Encounters Date Type Specialty Care Team Description 10/14/2019 Office Visit Podiatry Region, [facility] [address] [place] [address] [place] [address] [phone] 10/19/2019 Office Visit Internal Medicine David Duke PA-C [address] [place], [place] [address] [phone] 11/22/2019 Nutrition Services Gastroenterology Nita Enriquez, AKIKO [address] [place] [address] [place] [address] [phone] 02/01/2020 Office Visit Internal Medicine Marcela Pinto MD [address] [place], [place] [address] [phone] 06/06/2020 Imaging Radiology Health Maintenance Due Date [...] on File Type Date Recorded Patient Barrel Turner 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
--- OUTSIDE RECORDS SUMMARY | 2023-06-18 03:31 | External Medical Summary | Summary of Care ---
Author Name Unknown Organization [place] [address] Care Team Providers Care Vp Training Name Role Phone Marcela Pinto MD Primary Care Provider [phone] Encounter Details Date Type Department Care Team Description 10/25/2019 Scan Encounter Unspecified Department <No scans attached> Allergies Active Allergy Reactions Severity Noted Date Comments Valsartan 07/10/2010 Enalapril 05/21/2006 Escitalopram Oxalate Nausea/vomiting 10/11/2009 Nauseated Iodinated Diagnostic Agents Nausea/vomiting 05/2010 IV Contrast Lisinopril 05/21/2006 Metoprolol Tartrate 11/18/2006 Made pulse low [place] Oil-Black Currant-Vit E 07/10/2010 Verapamil 03/21/2004 Bupropion Hcl 10/30/2009 Makes pt sick in the stomach documented as of this encounter (statuses as of 10/26/2019) Medications Medication Sig Dispensed Refills Start Date [...] Active dilTIAZem HCl ER Beads 360 MG [id number]:HTN, goal below 130/80 TAKE 1 CAPSULE BY [...] our office. 1 Each 1 10/19/2019 Active documented as of this encounter (statuses as of 10/26/2019) Active Problems Problem Noted Date Morbid obesity [...] as of this encounter (statuses as of 10/26/2019) Resolved Problems Problem Noted Date Resolved Date [...] Hypoxemia 10/08/2011 10/30/2015 Genetic Sleep Disorder Research Other*[id number] 07/25/2011 05/15/2016 Diverticulitis of colon 07/25/2011 01/06/20 [...] as of this encounter (statuses as of 10/26/2019) Immunizations Name Administration Dates Next Due Hepatitis [...] Procedure Only Endoscopy Judson Lloyd MD [address] [facility] [place] [address] [phone] 11/18/2019 Procedure Only Endoscopy Judson Lloyd MD [address] [facility] [place] [address] [phone] 11/22/2019 Nutrition Services Gastroenterology Nita Enriquez RDN [address] [place] [address] [place] [id number] 11/25/2019 Office Visit Podiatry [facility] [address] [place] [address] 02/01/2020 Office Visit Internal Medicine Marcela Pinto MD [address] [facility] [place] [address] [phone] 06/06/2020 Imaging Radiology Health Maintenance Due Date [...] Documents on File Type Date Recorded 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
--- OUTSIDE RECORDS SUMMARY | 2023-06-18 03:31 | External Medical Summary | Summary of Care ---
Author Name Unknown Organization [place] [address] Care Team Providers Care Special Agent Group Insurance Name Role Phone Marcela Pinto MD Primary Care Provider [phone] Encounter Details Date Type Department Care Team Description 10/18/2019 Orders Only General Internal Medicine [facility] [address] [place], [place] [id number] Marcela Pinto MD [address] [facility] [place] [address] [phone] Allergies Active Allergy Reactions Severity Noted Date Comments Valsartan 07/10/2010 Enalapril 05/21/2006 Escitalopram Oxalate Nausea/vomiting 10/11/2009 Nauseated Iodinated Diagnostic Agents Nausea/vomiting 05/2010 IV Contrast Lisinopril 05/21/2006 Metoprolol Tartrate 11/18/2006 Made pulse low [place] Oil-Black Currant-Vit E 07/10/2010 Verapamil 03/21/2004 Bupropion Hcl 10/30/2009 Makes pt sick in the stomach documented as of this encounter (statuses as of 10/18/2019) Medications Medication Sig Dispensed Refills Start Date [...] [facility]) USE TO TEST BLOOD SUGAR 4 [...] Active dilTIAZem HCl ER Beads 360 MG [id number]:HTN, goal below 130/80 TAKE 1 CAPSULE BY [...] as of this encounter (statuses as of 10/18/2019) Active Problems Problem Noted Date COPD, group [...] as of this encounter (statuses as of 10/18/2019) Resolved Problems Problem Noted Date Resolved Date [...] Hypoxemia 10/08/2011 10/30/2015 Genetic Sleep Disorder Research Other*[id number] 07/25/2011 05/15/2016 Diverticulitis of colon 07/25/2011 01/06/20 [...] as of this encounter (statuses as of 10/18/2019) Immunizations Name Administration Dates Next Due Hepatitis [...] Visit Internal Medicine David Duke PA-C [address] [facility], [place] [address] [phone] 11/18/2019 Procedure Only Endoscopy Judson Lloyd MD [address] [place] [address] [phone] 11/18/2019 Procedure Only Endoscopy Judson Lloyd MD [address] [place] [address] 11/22/2019 Nutrition Services Gastroenterology Nita Enriquez, AKIKO [address] [place] [address] [place] [address] [phone] 11/25/2019 Office [facility] [address] [place] [address] [phone] 02/01/2020 Office Visit Internal Medicine Marcela Pinto MD [address] [facility] [place] [address] [phone] 06/06/2020 Imaging Radiology Health Maintenance Due Date [...] Priority Date/Time Associated Diagnosis Comments CHEMISTRY-OUTSIDE Routine 10/17/2019 documented in this encounter Results * CHEMISTRY-OUTSIDE (10/17/2019) CREATININE-OUTSIDE LAB 0.93 0.55 - 1.02 MG/DL OUTSIDE LAB (SEE SCANNED REPORT) GFR ESTIMATED-OUTSIDE LAB >60 >60 ML/MIN OUTSIDE LAB (SEE SCANNED REPORT) POTASSIUM-OUTSIDE LAB 4.3 3.5 - 5.1 MMOL/L OUTSIDE LAB (SEE SCANNED REPORT) GLUCOSE-OUTSIDE LAB 160(A) 70 - 110 MG/DL OUTSIDE LAB (SEE [...] LAB OUTSIDE LAB (SEE SCANNED REPORT) HEMOGLOBIN, K6Y-[id number] LAB OUTSIDE LAB (SEE SCANNED REPORT) PHOSPHORUS-OUTSIDE LAB OUTSIDE LAB (SEE SCANNED REPORT) PTH-OUTSIDE LAB OUTSIDE LAB (SEE SCANNED REPORT) MICROALBUMIN RATIO-OUTSIDE LAB OUTSIDE LAB (SEE SCANNED REPORT) PROTEIN, UA-OUTSIDE LAB OUTSIDE LAB (SEE SCANNED REPORT) HEMOGLOBIN-OUTSIDE LAB 10.7(A) 12.0 - 16.0 G/DL OUTSIDE LAB (SEE SCANNED REPORT) CHEMISTRY COMMENT-OUTSIDE LAB Comment:OUTPATIEN T- CBCD, CMP, MAGNESIUM OUTSIDE LAB (SEE SCANNED REPORT) Specimen Narrative Performed At Performing Organization Address City/State/Zipcod e Phone Number OUTSIDE LAB (SEE SCANNED REPORT) documented in this encounter Advance Directives Documents on File Type Date Recorded Patient Curer Foam Rubber 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
--- OUTSIDE RECORDS SUMMARY | 2023-06-18 03:31 | External Medical Summary | Summary of Care ---
Author Name Unknown Organization [place] [address] Care Team Providers Care Liquefaction Plant Operator Name Role Phone Marcela Pinto MD Primary Care Provider [phone] Reason for Visit * Reason Comments eRx-Medication Refill Encounter Details Date Type Department Care Team Description 10/30/2019 Refill General Internal Medicine [facility] [address] [place] [address] Marcela Pinto MD [address] [place] [address] [phone] Neck pain; Pain in joint of right shoulder Allergies Active Allergy Reactions Severity Noted Date [...] Active dilTIAZem HCl ER Beads 360 MG BY08Vncoyucgtpv:HTN , goal below 130/80 TAKE 1 CAPSULE [...] Hypoxemia 10/08/2011 10/30/2015 Genetic Sleep Disorder Research Other*[id number] 07/25/2011 05/15/2016 Diverticulitis of colon 07/25/2011 01/06/20 [...] Notes * Telephone Encounter - Jud Pereyra [facility] - 11/01/2019 10:26 AM EST Refused Prescriptions: Disp Refills Meloxicam 15 MG Tablet [Pharmacy Med Name:*90 Tab 3 Sig: TAKE 1 TAB BY MOUTH DAILY. FOR PAIN.Refused By: JUD PEREYRA for Refusal: Course of treatment complete documented in this encounter Plan of Treatment Upcoming Encounters Date Type Specialty Care Team Description 11/18/2019 Procedure Only Endoscopy Judson Lloyd MD [address] [place] [address] 11/18/2019 Procedure Only Endoscopy Judson Lloyd MD [address] [place] [address] 11/22/2019 Nutrition Services Gastroenterology Nita Enriquez, IWONAN [address] [place] [place] [id number] 11/25/2019 Office Visit [facility] [address] [place] [address] 02/01/2020 Office Visit Internal Medicine Marcela Pinto MD 200 [place] [address] [phone] 06/06/2020 Imaging Radiology Health Maintenance Due Date [...] as of this encounter Visit Diagnoses Diagnosis Neck pain Cervicalgia Pain in joint of right shoulder Pain in joint, shoulder region documented in this encounter Advance Directives Documents on File Type Date Recorded Patient Order Planner 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
--- OUTSIDE RECORDS SUMMARY | 2023-06-18 03:31 | External Medical Summary | Summary of Care ---
Author Name Unknown Organization [place] [address] Care Team Providers Care Conveyor Belt Repairer Name Role Phone Marcela Pinto MD Primary Care Provider [phone] Reason for Visit * Reason Comments case management [facility] Encounter Details Date Type Department Care Team Description 09/29/2019 Radiological Equipment Specialist Telephone Care Coordination [address] [place] [address] Amy Parker LPN case management ([facility]) Allergies Active Allergy Reactions Severity Noted Date Comments Valsartan 07/10/2010 Enalapril 05/21/2006 Escitalopram Oxalate Nausea/vomiting 10/11/2009 Nauseated Iodinated Diagnostic Agents Nausea/vomiting 05/2010 IV Contrast Lisinopril 05/21/2006 Metoprolol Tartrate 11/18/2006 Made pulse low [place] Oil-Black Currant-Vit E 07/10/2010 Verapamil 03/21/2004 Bupropion Hcl 10/30/2009 Makes pt sick in the stomach documented as of this encounter (statuses as of 09/29/2019) Medications Medication Sig Dispensed Refills Start Date [...] Active dilTIAZem HCl ER Beads 360 MG [id number]:HTN, goal below 130/80 TAKE 1 CAPSULE BY [...] as of this encounter (statuses as of 09/29/2019) Active Problems Problem Noted Date COPD, group [...] as of this encounter (statuses as of 09/29/2019) Resolved Problems Problem Noted Date Resolved Date [...] Hypoxemia 10/08/2011 10/30/2015 Genetic Sleep Disorder Research Other*[id number] 07/25/2011 05/15/2016 Diverticulitis of colon 07/25/2011 01/06/20 [...] as of this encounter (statuses as of 09/29/2019) Immunizations Name Administration Dates Next Due Hepatitis [...] Telephone Encounter - Amy Parker LPN - 09/29/2019 11:41 AM EST Case Management Assessment [facility] Is this call for a hospital, longterm or rehab facility discharge to home? Yes hospital [facility] 09/25-09/28 Diverticulitis S: Reports: Spoke with patient. She is doing OK. Came home yesterday. No restrictions. Seeing PCP office on 10/11. Needs to get colonoscopy and upper GI within 6-8 weeks. Endo will be calling her. Was discharged home on Flagyl and Eusebioro States she is getting [employer] in October for her insurance. Will discuss further at next phone call. Increased edema: denies Chest pain denies Increased shortness of breath: gets SOB with exertion, but at her baseline Chills / Sweats / Fever: denies chills/sweats and denies fever Fall: denies any falls since last Care Management encounter Appetite: still having some nausea. has zofran. ate toast this morning. denies any vomiting or abdominal pain Bowel: still some red blood when wiping, but decreasing. stools are typically black d/t her taking iron Medications: takes all medications as prescribed. and denies side effects O: Phone visit for [facility]. Medications: takes all medications as prescribed. and [...] able to communicate, understand instructions, process information. Lives alone No assistive devices P: Radiological Equipment Specialist Interventions: Call with any worsening blood when wiping Call with any worsening nausea, vomiting, or abdominal pain Reinforced safety education / fall prevention Reinforced medication regimen - timing / dosing / purpose PCP Notified of enrollment in CM/HM program: Yes SNP Member? No Re-evaluation of plan of care and progress towards goals achievement: Plan to call patient in 7-10 days to reassess and update plan of care Amy Parker LPN Outpatient Radiological Equipment Specialist documented in this encounter Plan of Treatment Upcoming Encounters Date Type Specialty Care Team Description 10/11/2019 Office Visit Family Medicine Cari Wynne PA-C [address] [facility] [place] [address] [phone] 10/11/2019 Nutrition Services Gastroenterology Nita Enriquez RDN [address] [place] [place] [address] [phone] 10/14/2019 Office Visit Podiatry [facility] [address] [place] [id number] 02/01/2020 Office Visit Internal Medicine Marcela Pinto MD 200 [place] [address] [phone] 06/06/2020 Imaging Radiology Health Maintenance Due Date [...] Documents on File Type Date Recorded Patient Management Development Specialist 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
--- OUTSIDE RECORDS SUMMARY | 2023-06-18 03:32 | External Medical Summary | Summary of Care ---
Author Name Unknown Organization [place] [address] Care Team Providers Care Vmware Consultant Name Role Phone Marcela Pinto MD Primary Care Provider [phone] Encounter Details Date Type Department Care Team Description 09/25/2019 Scan Encounter Unspecified Department <No scans attached> Allergies Active Allergy Reactions Severity Noted Date Comments Valsartan 07/10/2010 Enalapril 05/21/2006 Escitalopram Oxalate Nausea/vomiting 10/11/2009 Nauseated Iodinated Diagnostic Agents Nausea/vomiting 05/2010 IV Contrast Lisinopril 05/21/2006 Metoprolol Tartrate 11/18/2006 Made pulse low [place] Oil-Black Currant-Vit E 07/10/2010 Verapamil 03/21/2004 Bupropion Hcl 10/30/2009 Makes pt sick in the stomach documented as of this encounter (statuses as of 09/27/2019) Medications Medication Sig Dispensed Refills Start Date [...] Active dilTIAZem HCl ER Beads 360 MG [id number]:HTN, goal below 130/80 TAKE 1 CAPSULE BY [...] as of this encounter (statuses as of 09/27/2019) Active Problems Problem Noted Date COPD, group [...] as of this encounter (statuses as of 09/27/2019) Resolved Problems Problem Noted Date Resolved Date [...] Hypoxemia 10/08/2011 10/30/2015 Genetic Sleep Disorder Research Other*[id number] 07/25/2011 05/15/2016 Diverticulitis of colon 07/25/2011 01/06/20 [...] as of this encounter (statuses as of 09/27/2019) Immunizations Name Administration Dates Next Due Hepatitis [...] Visit Family Medicine Cari Wynne PA-C [address] [facility] [place] [address] [phone] 10/11/2019 Nutrition Services Gastroenterology Nita Enriquez RDN [address] [place] [address] [phone] 10/14/2019 Office Visit Podiatry [facility] [address] [place] [address] 02/01/2020 Office Visit Internal Medicine [facility] [address] [phone] 06/06/2020 Imaging Radiology Health Maintenance Due Date [...] Documents on File Type Date Recorded Patient Receptionist Scheduler 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
--- OUTSIDE RECORDS SUMMARY | 2023-06-18 03:32 | External Medical Summary | Summary of Care ---
Author Name Unknown Organization [place] [address] Care Team Providers Care Silk Blocker Name Role Phone Alex Pinto MD Primary Care Provider [phone] Reason for Visit * Reason Comments eRx-Medication Refill Encounter Details Date Type Department Care Team Description 09/14/2019 Refill General Internal Medicine [facility] [address] [place], [place] [id number] Alex Pinto MD 200 [place] [address] [phone] Encounter for long-term (current) drug use*; Ischemic colitis (HCC) Allergies Active Allergy Reactions Severity Noted Date Comments Valsartan 07/10/2010 Enalapril 05/21/2006 Escitalopram Oxalate Nausea/vomiting 10/11/2009 Nauseated Iodinated Diagnostic Agents Nausea/vomiting 05/2010 IV Contrast Lisinopril 05/21/2006 Metoprolol Tartrate 11/18/2006 Made pulse low [place] Oil-Black Currant-Vit E 07/10/2010 Verapamil 03/21/2004 Bupropion Hcl 10/30/2009 Makes pt sick in the stomach documented as of this encounter (statuses as of 09/15/2019) Medications Medication Sig Dispensed Refills Start Date [...] [facility]) USE TO TEST BLOOD SUGAR 4 TIMES [...] 08/26/2019 2:18 PM glimepiride (AMARYL) 4 MG TabletIndications:T ype 2 [...] mouth daily. 90 Cap 0 03/31/2019 Active traZODone (DESYREL) 50 MG TabletIndications:G AD (generalized anxiety disorder) Take 1 Tab by mouth at bedtime. 30 Tab 5 04/06/2019 Active ferrous sulfate (FEOSOL) 325 (65 FE) MG Tablet One tablet every other day 60 Tab 11 04/16/2019 Active zafirlukast (ACCOLATE) 20 MG TabletIndications:A sthma with severity to be determined Take 1 Tab by mouth daily. 90 Tab 1 04/20/2019 Active dilTIAZem HCl ER Beads [id number]:HTN , goal below 130/80 TAKE 1 CAPSULE BY MOUTH EVERY DAY 90 Cap 1 05/27/2019 Active albuterol sulfate (PROVENTIL) (2.5 MG/3ML) 0.083% nebulizer solutionIndications :Asthma with severity to be determined,COPD, moderate (HCC) USE ONE NEBULIZER TREATMENT TWICE A DAY DIRECTED FOR WORSENING ASTHMA. J45.909, J44.9 225 mL 1 06/29/2019 Active HYDROcodone-acetami nophen 5-325 mg per tab 5-325 MG per tabletIndications:G eneralized osteoarthritis Take 1 Tab by mouth every 6 hours as needed for Pain, Mild. 120 Tab 0 08/05/2019 Active atorvaSTATin (LIPITOR) 40 MG TabletIndications:H yperlipidemia with target LDL less than 100 TAKE 1 TABLET BY MOUTH EVERY DAY 90 Tab 1 08/12/2019 Active predniSONE (DELTASONE) 10 MG TabletIndications:C hronic maxillary sinusitis,Otalgia of both ears Take 5 tabs for 2 days, 4 tabs for 2 days, 3 tabs for 2 days, 2 tabs for 2 days 1 tab for 2 days 30 Tab 0 08/26/2019 Active fluticasone (FLONASE) 50 MCG/ACT nasal sprayIndications:Ch ronic maxillary sinusitis,Otalgia of both ears Administer 2 Sprays into each nostril daily. 1 Bottle 11 08/26/2019 Active Terazosin HCl 2 MG Capsule TAKE 1 CAPSULE BY MOUTH EVERY DAY 90 Cap 1 09/07/2019 Active omeprazole (PRILOSEC) 20 MG CPDRIndications:Isc hemic colitis (HCC) TAKE 1 CAPSULE BY MOUTH TWICE A DAY 180 Cap 1 09/15/2019 Active omeprazole (PRILOSEC) 20 MG CPDRIndications:Isc hemic colitis (HCC) TAKE 1 CAPSULE BY MOUTH TWICE A DAY 180 Cap 1 03/22/2019 9 Discontinu ed(Refill) documented as of this encounter (statuses as of 09/15/2019) Active Problems Problem Noted Date COPD, group [...] as of this encounter (statuses as of 09/15/2019) Resolved Problems Problem Noted Date Resolved Date [...] Hypoxemia 10/08/2011 10/30/2015 Genetic Sleep Disorder Research Other*[id number] 07/25/2011 05/15/2016 Diverticulitis of colon 07/25/2011 01/06/20 [...] Modified per HTN Taxonomy. Carpal tunnel syndrome 03/26/201 9 OBESITY, UNSPECIFIED 01/09/2010 Overview: Per Obesity Taxonomy EDEMA dependent, ankles 01/06/20 19 Mixed dyslipidemia 09/19/2009 Overview: Per Lipid Taxonomy. documented as of this encounter (statuses as of 09/15/2019) Immunizations Name Administration Dates Next Due Hepatitis [...] Notes * Telephone Encounter - Jud Pereyra [facility] - 09/15/2019 10:22 AM EST Signed Prescriptions: Disp Refills omeprazole (PRILOSEC) 20 MG CPDR 180 Cap1 Sig: TAKE 1 CAPSULE BYMOUTH TWICE A DAYAuthorizing Provider: ALEX PINTO User: JUD PEREYRA * Telephone Encounter - Jdu Pereyra [facility] - 09/15/2019 10:22 AM EST Per refill protocol patient needs vitamin B-12 lab on file within the past 2 years while using PPIs. Lab work ordered. Patient may obtain with next routine labs. Thank you, Jud Pereyra, PharmD Staff Pharmacist Refill Call Center 09/15/2019, 10:22 AM documented in this encounter Plan of Treatment Upcoming Encounters Date Type Specialty Care Team Description 10/11/2019 Office Visit Family Medicine Cari Wynne PA-C [address] [facility] [place] [address] [phone] 10/11/2019 Nutrition Services Gastroenterology Nita Enriquez RDN [address] [place] [place] [address] [phone] 10/14/2019 Office Visit Podiatry [facility] [address] [place] [address] [place] [id number] 02/01/2020 Office Visit Internal Medicine Alex Pinto MD 200 [facility] [place] [address] [phone] 06/06/2020 Imaging Radiology Scheduled Orders Name Type Priority Associated Diagnoses Orde r Schedule VITAMIN B12 Lab Routine Encounter for long-term (current) drug use Expected: 09/15/2019, Expires: 09/15/2020 Health Maintenance Due Date Last Done Comments DIABETES-FOOT EXAM 01/06/2020 01/05/2019, 0 01/16/2018, 11/15/2016, [...] this encounter Visit Diagnoses Diagnosis Encounter for long-term (current) drug use- Primary Encounter for long-term (current) use of other medications Ischemic colitis (HCC) Unspecified vascular insufficiency of intestine documented in this encounter Advance Directives Documents on File Type Date Recorded Patient Letterer 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
--- OUTSIDE RECORDS SUMMARY | 2023-06-18 03:32 | External Medical Summary | Summary of Care ---
Author Name Unknown Organization [place] [address] Care Team Providers Care Supervisor Dry Paste Name Role Phone Marcela Pinto MD Primary Care Provider [phone] Reason for Visit * Reason Comments Appointment colonoscopy Encounter Details Date Type Department Care Team Description 09/27/2019 Telephone Gastroenterology, [facility] [address] [place] [address] To Cueva CRNP [address] [place] [address] Appointment (colonoscopy) Allergies Active Allergy Reactions Severity Noted Date Comments Valsartan 07/10/2010 Enalapril 05/21/2006 Escitalopram Oxalate Nausea/vomiting 10/11/2009 Nauseated Iodinated Diagnostic Agents Nausea/vomiting 05/2010 IV Contrast Lisinopril 05/21/2006 Metoprolol Tartrate 11/18/2006 Made pulse low [place] Oil-Black Currant-Vit E 07/10/2010 Verapamil 03/21/2004 Bupropion Hcl 10/30/2009 Makes pt sick in the stomach documented as of this encounter (statuses as of 09/28/2019) Medications Medication Sig Dispensed Refills Start Date [...] OF [place]) USE TO TEST BLOOD SUGAR 4 TIMES [...] Active dilTIAZem HCl ER Beads 360 MG [id number]:HTN, goal below 130/80 TAKE 1 CAPSULE BY [...] as of this encounter (statuses as of 09/28/2019) Active Problems Problem Noted Date COPD, group [...] as of this encounter (statuses as of 09/28/2019) Resolved Problems Problem Noted Date Resolved Date [...] Hypoxemia 10/08/2011 10/30/2015 Genetic Sleep Disorder Research Other*[id number] 07/25/2011 05/15/2016 Diverticulitis of colon 07/25/2011 01/06/20 [...] as of this encounter (statuses as of 09/28/2019) Immunizations Name Administration Dates Next Due Hepatitis [...] colonoscopy. Both orders placed. Recommend completing at [facility]. * Telephone Encounter - Frank Clay OSA - 09/27/2019 10:45 AM EST Pt inhouse at OR for diverticulitis. Needs OP colon in 6-8 wks per To. Please call to schedule. To - please place order. documented in this encounter Plan of Treatment Upcoming Encounters Date Type Specialty Care Team Description 10/04/2019 Office Visit Internal Medicine Nicolas Oro MD [address] [place] [address] [phone] 10/11/2019 Office Visit Family Medicine Cari Wynne PA-C 132 [facility] [place] [address] [phone] 10/11/2019 Nutrition Services Gastroenterology Nita Enriquez, RDN [address] [place] [address] [phone] 10/14/2019 Office Visit Podiatry Region, [facility] [address] [place], [place] [id number] 02/01/2020 Office Visit Internal Medicine Marcela Pinto MD 200 [place] [address] [phone] 06/06/2020 Imaging Radiology Scheduled Orders Name Type [...] on File Type Date Recorded Patient Public Affairs Director 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
--- OUTSIDE RECORDS SUMMARY | 2023-06-18 03:32 | External Medical Summary | Summary of Care ---
Author Name Unknown Organization [place] [address] Care Team Providers Care Corporate Security Officer Name Role Phone Marcela Pinto MD Primary Care Provider [phone] Reason for Visit * Reason Comments Appointment colonoscopy Encounter Details Date Type Department Care Team Description 09/27/2019 Telephone Gastroenterology, [facility] 132 [place] [address] To Cueva CRNP [address] [place] [address] Appointment (colonoscopy) Allergies Active Allergy Reactions Severity Noted Date Comments Valsartan 07/10/2010 Enalapril 05/21/2006 Escitalopram Oxalate Nausea/vomiting 10/11/2009 Nauseated Iodinated Diagnostic Agents Nausea/vomiting 05/2010 IV Contrast Lisinopril 05/21/2006 Metoprolol Tartrate 11/18/2006 Made pulse low [place] Oil-Black Currant-Vit E 07/10/2010 Verapamil 03/21/2004 Bupropion [...] [facility] [place]) USE TO TEST BLOOD SUGAR 4 TIMES [...] Active dilTIAZem HCl ER Beads 360 MG [id number]:HTN, goal below 130/80 TAKE 1 CAPSULE BY [...] Hypoxemia 10/08/2011 10/30/2015 Genetic Sleep Disorder Research Other*[id number] 07/25/2011 05/15/2016 Diverticulitis of colon 07/25/2011 01/06/20 [...] encounter Miscellaneous Notes * Telephone Encounter - To Cueva CRNP - 09/27/2019 4:20 PM EST Pt also c/o nausea. Dr. Lloyd recommends EGD with colonoscopy. Both orders placed. Recommend completing at [facility]. * Telephone Encounter - Frank Clay OSA - 09/27/2019 10:45 AM EST Pt inhouse at [place] for diverticulitis. Needs OP colon in 6-8 wks per To. Please call to schedule. To - please place order. documented in this encounter Plan of Treatment Upcoming Encounters Date Type Specialty Care Team Description 10/04/2019 Office Visit Internal Medicine Nicolas Oro MD 200 [facility] [place] [address] [phone] 10/11/2019 Office Visit Family Medicine Cari Wynne PA-C 132 [facility] [place] [address] [phone] 10/11/2019 Nutrition Services Gastroenterology Zoe Nita Aebl, RDN [address] [place] [address] [phone] 10/14/2019 Office Visit Podiatry [facility] [address] [place] [address] [phone] 02/01/2020 Office Visit Internal Medicine Marcela Pinto MD 200 [facility] [place], [place] [address] [phone] 06/06/2020 Imaging Radiology Scheduled Orders Name Type [...] Documents on File Type Date Recorded 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
--- OUTSIDE RECORDS SUMMARY | 2023-06-18 03:32 | External Medical Summary | Summary of Care ---
Author Name Unknown Organization [place] [address] Care Team Providers Care Herbarium Worker Name Role Phone Marcela Pinto MD Primary Care Provider [phone] Encounter Details Date Type Department Care Team Description 09/24/2019 Scan Encounter Unspecified Department <No scans attached> Allergies Active Allergy Reactions Severity Noted Date Comments Valsartan 07/10/2010 Enalapril 05/21/2006 Escitalopram Oxalate Nausea/vomiting 10/11/2009 Nauseated Iodinated Diagnostic Agents Nausea/vomiting 05/2010 IV Contrast Lisinopril 05/21/2006 Metoprolol Tartrate 11/18/2006 Made pulse low [place] Oil-Black Currant-Vit E 07/10/2010 Verapamil 03/21/2004 Bupropion [...] Active dilTIAZem HCl ER Beads 360 MG ZC19Qlwhzhsdqme:HTN, goal below 130/80 TAKE 1 CAPSULE BY [...] EVERY DAY 90 Tab 1 09/23/2019 Active documented as of this encounter (statuses [...] Hypoxemia 10/08/2011 10/30/2015 Genetic Sleep Disorder Research Other*[id number] 07/25/2011 05/15/2016 Diverticulitis of colon 07/25/2011 01/06/20 [...] Visit Family Medicine Cari Wynne PA-C 132 [facility] [place] [address] [phone] 10/11/2019 Nutrition Services Gastroenterology Nita Enriquez RDN [address] [place] [address] [phone] 10/14/2019 Office Visit Podiatry Region, [facility] [address] [place] [id number] 02/01/2020 Office Visit Internal Medicine Marcela Pinto MD 200 [place] [address] [phone] 06/06/2020 Imaging Radiology Health Maintenance Due Date [...] Documents on File Type Date Recorded Patient Ep Specialist 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
--- OUTSIDE RECORDS SUMMARY | 2023-06-18 03:32 | External Medical Summary | Summary of Care ---
Author Name Unknown Organization [place] [address] Care Team Providers Care Office Executive Name Role Phone Marcela Pinto MD Primary Care Provider [phone] Encounter Details Date Type Department Care Team Description 09/25/2019 Scan Encounter Unspecified Department <No scans attached> Allergies Active Allergy Reactions Severity Noted Date Comments Valsartan 07/10/2010 Enalapril 05/21/2006 Escitalopram Oxalate Nausea/vomiting 10/11/2009 Nauseated Iodinated Diagnostic Agents Nausea/vomiting 05/2010 IV Contrast Lisinopril 05/21/2006 Metoprolol Tartrate 11/18/2006 Made pulse low [place] Oil-Black Currant-Vit E 07/10/2010 Verapamil 03/21/2004 Bupropion [...] Active dilTIAZem HCl ER Beads 360 MG ZC04Zjqnyzsypgd:HTN, goal below 130/80 TAKE 1 CAPSULE BY [...] Hypoxemia 10/08/2011 10/30/2015 Genetic Sleep Disorder Research Other*[id number] 07/25/2011 05/15/2016 Diverticulitis of colon 07/25/2011 01/06/20 [...] Visit Family Medicine Cari Wynne PA-C 132 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
--- OUTSIDE RECORDS SUMMARY | 2023-06-18 03:32 | External Medical Summary | Summary of Care ---
Author Name Unknown Organization [place] [address] Care Team Providers Care Return Agent Airport Name Role Phone Marcela Pinto MD Primary Care Provider [phone] Encounter Details Date Type Department Care Team Description 09/28/2019 Scan Encounter Unspecified Department <No scans attached> Allergies Active Allergy Reactions Severity Noted Date Comments Valsartan 07/10/2010 Enalapril 05/21/2006 Escitalopram Oxalate Nausea/vomiting 10/11/2009 Nauseated Iodinated Diagnostic Agents Nausea/vomiting 05/2010 IV Contrast Lisinopril 05/21/2006 Metoprolol Tartrate 11/18/2006 Made pulse low [place] Oil-Black Currant-Vit E 07/10/2010 Verapamil 03/21/2004 Bupropion [...] Active dilTIAZem HCl ER Beads 360 MG LW11Wftbjltocjo:HTN, goal below 130/80 TAKE 1 CAPSULE BY [...] Hypoxemia 10/08/2011 10/30/2015 Genetic Sleep Disorder Research Other*[id number] 07/25/2011 05/15/2016 Diverticulitis of colon 07/25/2011 01/06/20 [...] Visit Family Medicine Cari Wynne PA-C 132 [facility] [place] [address] [phone] 10/11/2019 Nutrition Services Gastroenterology Nita Enriquez RDN [address] [place] [address] [phone] 10/14/2019 Office Visit Podiatry [facility] [address] [place] [address] 02/01/2020 Office Visit Internal Medicine [facility] MD [facility] [address] [phone] 06/06/2020 Imaging Radiology Health Maintenance Due Date [...] Documents on File Type Date Recorded 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
--- OUTSIDE RECORDS SUMMARY | 2023-06-18 03:32 | External Medical Summary | Summary of Care ---
Author Name Unknown Organization [place] [address] Care Team Providers Care Family Nurse Name Role Phone Alex Pinto MD Primary Care Provider [phone] Reason for Visit * Reason Comments eRx-Medication Refill Encounter Details Date Type Department Care Team Description 09/06/2019 Refill General Internal Medicine [facility] [address] [place], [place] [address] Alex Pinto MD 200 [place] [address] [phone] Allergies Active Allergy Reactions Severity Noted Date Comments Valsartan 07/10/2010 Enalapril 05/21/2006 Escitalopram Oxalate Nausea/vomiting 10/11/2009 Nauseated Iodinated Diagnostic Agents Nausea/vomiting 05/2010 IV Contrast Lisinopril 05/21/2006 Metoprolol Tartrate 11/18/2006 Made pulse low [place] Oil-Black Currant-Vit E 07/10/2010 Verapamil 03/21/2004 Bupropion Hcl 10/30/2009 Makes pt sick in the stomach documented as of this encounter (statuses as of 09/07/2019) Medications Medication Sig Dispensed Refills Start Date [...] less than 7.0% ([facility]) USE TO TEST BLOOD SUGAR 4 [...] EVERY DAY 90 Tab 2 02/08/2019 Active omeprazole (PRILOSEC) 20 MG CPDRIndications:Isc hemic colitis (HCC) TAKE 1 CAPSULE BY MOUTH TWICE A DAY 180 Cap 1 03/22/2019 Active COMBIVENT RESPIMAT 20-100 MCG/ACT InhalerIndications: Asthma [...] Active dilTIAZem HCl ER Beads 360 MG KI01Bxihwpdggfq:HTN , goal below 130/80 TAKE 1 CAPSULE [...] EVERY DAY 90 Cap 1 09/07/2019 Active Terazosin HCl 2 MG Capsule TAKE 1 CAPSULE BY MOUTH EVERY DAY 90 Cap 1 03/12/2019 9 Discontinu ed(Refill) documented as of this encounter (statuses as of 09/07/2019) Active Problems Problem Noted Date COPD, group [...] as of this encounter (statuses as of 09/07/2019) Resolved Problems Problem Noted Date Resolved Date [...] Hypoxemia 10/08/2011 10/30/2015 Genetic Sleep Disorder Research Other*[id number] 07/25/2011 05/15/2016 Diverticulitis of colon 07/25/2011 01/06/20 [...] as of this encounter (statuses as of 09/07/2019) Immunizations Name Administration Dates Next Due Hepatitis [...] Telephone Encounter - Alex Pinto MD - 09/07/2019 12:30 PM EST Signed Prescriptions: Disp Refills Terazosin HCl 2 MG Capsule 90 Cap 1 Sig: TAKE 1 CAPSULE BY MOUTH EVERY DAY Authorizing Provider: ALEX PINTO * Telephone Encounter - Butch Duval [facility] - 09/06/2019 5:50 PM EST Pending Prescriptions: Disp Refills Terazosin HCl 2 MG Capsule [Pharmacy Med N*90 Cap 1 Sig: TAKE 1 CAPSULE BY MOUTH EVERY DAY * Telephone Encounter - Butch Duval, [facility] - 09/06/2019 5:50 PM EST Refill pharmacists currently not authorized to approve refills for this class of medication per refill protocol. Please approve if appropriate. Pending Prescriptions: Disp Refills Terazosin HCl 2 MG Capsule [Pharmacy Med N*90 Cap 1 Sig: TAKE 1 CAPSULE BY MOUTH EVERY DAY Last Office Visit: 08/26/2019 Next Office Visit: 02/01/2020 Scheduled Provider(s): Alex Pinto MD If no future appointments scheduled, and last appointment is greater than a year ago, please schedule patient for a follow-up appointment Last date the medication was ordered: 03/12/2019 Pharmacy: [id number] [id number] [facility] Is this request for a [...] Labs: Lab Results Component Value Date/Time CREAT 0.90 08/12/2019 CREAT 1.0 07/09/2019 01:48 PM POTASSIUM 4.6 [...] Visit Family Medicine Cari Wynne PA-C 132 [facility] [place] [address] [phone] 10/11/2019 Nutrition Services Gastroenterology Nita Enriquez RDN [address] [place] [address] [phone] 10/14/2019 [facility] [address] [place] [id number] 02/01/2020 Office Visit Internal Medicine Alex Pinto MD 200 [place] [address] [phone] 06/06/2020 Imaging Radiology Health Maintenance Due Date [...] on File Type Date Recorded 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
--- OUTSIDE RECORDS SUMMARY | 2023-06-18 03:32 | External Medical Summary | Summary of Care ---
Author Name Unknown Organization [place] [address] Care Team Providers Care Block Handler Name Role Phone Alex Pinto MD Primary Care Provider [phone] Reason for Visit * Reason Comments Medication Refill Encounter Details Date Type Department Care Team Description 09/16/2019 Refill General Internal Medicine [facility] [address] [facility] [address] [place], [place] [id number] Alex Pinto MD 200 [place] [address] [phone] GENERAL OSTEOARTHROSIS Allergies Active Allergy Reactions Severity Noted Date Comments Valsartan 07/10/2010 Enalapril 05/21/2006 Escitalopram Oxalate Nausea/vomiting 10/11/2009 Nauseated Iodinated Diagnostic Agents Nausea/vomiting 05/2010 IV Contrast Lisinopril 05/21/2006 Metoprolol Tartrate 11/18/2006 Made pulse low [place] Oil-Black Currant-Vit E 07/10/2010 Verapamil 03/21/2004 Bupropion Hcl 10/30/2009 Makes pt sick in the stomach documented as of this encounter (statuses as of 09/17/2019) Medications Medication Sig Dispensed Refills Start Date [...] Active dilTIAZem HCl ER Beads 360 MG [id number]:HTN , goal below 130/80 TAKE 1 CAPSULE [...] Pain, Mild. 120 Tab 0 09/17/2019 Active HYDROcodone-acetami nophen 5-325 mg per tab 5-325 MG per tabletIndications:G eneralized osteoarthritis Take 1 Tab by mouth every 6 hours as needed for Pain, Mild. 120 Tab 0 08/05/2019 9 Discontinu ed(Refill) documented as of this encounter (statuses as of 09/17/2019) Active Problems Problem Noted Date COPD, group [...] as of this encounter (statuses as of 09/17/2019) Resolved Problems Problem Noted Date Resolved Date [...] Hypoxemia 10/08/2011 10/30/2015 Genetic Sleep Disorder Research Other*[id number] 07/25/2011 05/15/2016 Diverticulitis of colon 07/25/2011 01/06/20 [...] as of this encounter (statuses as of 09/17/2019) Immunizations Name Administration Dates Next Due Hepatitis [...] Telephone Encounter - Alex Pinto MD - 09/17/2019 4:02 PM EST Signed Prescriptions: Disp Refills HYDROcodone-acetaminophen 5-325 mg per tab*120 Tab0 Sig: Take 1 Tab by mouth every 6 hours as needed for Pain, Mild.Authorizing Provider: PINTO, ALEX N * Telephone Encounter - Ashley Mcmahan, [facility] - 09/16/2019 9:33 AM EST Pending Prescriptions: Disp Refills HYDROcodone-acetaminophen 5-325 mg per ta*120 Tab0 Sig: Take 1 Tab by mouth every 6 hours as needed for Pain, Mild. 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 Allergic rhinitis J30.9 Nocturnal hypoxia G47.34 Sleep apnea, obstructive G47.33 Incisional hernia K43.2 ACEI/ARB contraindicated [id number] HTN, goal below 140/90 I10 Hyperlipidemia with target LDL less than 100 E78.5 Controlled substance agreement signed Z79.899 Type 2 diabetes mellitus with hemoglobin A1c goal of less than 7.5% ([facility]) E11.9 Hypercalcemia E83.52 Elevated plasma metanephrines R79.89 Irritable bowel syndrome with constipation K58.1 Ischemic colitis ([facility]) K55.9 Body mass index (BMI) of 40.0 to 44.9 in adult ([facility]) Z68.41 HECTOR (generalized anxiety disorder) F41.1 COPD, group B, by GOLD 2017 classification ([facility]) J44.9 Labs: CREATININE TIM(mg/dL) Jessica Dt/Tm Resulted Value Status 08/26/19 2:57P 09/02/19 221 FINAL POTASSIUM-OUTSIDE LAB(MMOL/L) Jessica Dt/Tm Resulted Value Status 08/12/19 08/12/19 3.9 FINAL TSH - OUTSIDE LAB(MCLU/ML) Jessica Dt/Tm [...] Status 08/26/19 2:55P 08/26/19 6.6* FINAL HEMOGLOBIN, [id number] LAB(%) Jessica Dt/Tm Resulted Value Status 08/12/19 08/12/19 6.6* FINAL 03/22/19 04/02/19 6.7* FINAL documented in this encounter Plan of Treatment Upcoming Encounters Date Type Specialty Care Team Description 10/11/2019 Office Visit Family Medicine Cari Wynne PA-C 132 [facility] [place] [address] [phone] 10/11/2019 Nutrition Services Gastroenterology Nita Enriquez RDN [address] [place] [address] [phone] 10/14/2019 Office Visit Podiatry Region, [facility] [address] [place] [id number] 02/01/2020 Office Visit Internal Medicine Alex Pinto MD 200 [place] [address] [phone] 06/06/2020 Imaging Radiology Health Maintenance Due Date [...] Documents on File Type Date Recorded 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
--- OUTSIDE RECORDS SUMMARY | 2023-06-18 03:32 | External Medical Summary | Summary of Care ---
Author Name Unknown Organization [place] [address] Care Team Providers Care Latin Teacher Name Role Phone Marcela Pinto MD Primary Care Provider [phone] Encounter Details Date Type Department Care Team Description 09/27/2019 Scan Encounter Unspecified Department <No scans attached> Allergies Active Allergy Reactions Severity Noted Date Comments Valsartan 07/10/2010 Enalapril 05/21/2006 Escitalopram Oxalate Nausea/vomiting 10/11/2009 Nauseated Iodinated Diagnostic Agents Nausea/vomiting 05/2010 IV Contrast Lisinopril 05/21/2006 Metoprolol Tartrate 11/18/2006 Made pulse low [place] Oil-Black Currant-Vit E 07/10/2010 Verapamil 03/21/2004 Bupropion [...] Active dilTIAZem HCl ER Beads 360 MG BY99Ypucuipctbn:HTN, goal below 130/80 TAKE 1 CAPSULE BY [...] Hypoxemia 10/08/2011 10/30/2015 Genetic Sleep Disorder Research Other*[id number] 07/25/2011 05/15/2016 Diverticulitis of colon 07/25/2011 01/06/20 [...] Visit Family Medicine Cari Wynne PA-C 132 [facility] [place] [address] [phone] 10/11/2019 Nutrition Services Gastroenterology Nita Enriquez RDN [address] [place] [address] [phone] 10/14/2019 Office Visit Podiatry [facility] [address] [place] [address] 02/01/2020 Office Visit Internal Medicine [facility] [address] [phone] 06/06/2020 Imaging Radiology Health Maintenance Due Date [...] Documents on File Type Date Recorded 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
--- OUTSIDE RECORDS SUMMARY | 2023-06-18 03:33 | External Medical Summary | Summary of Care ---
Author Name Unknown Organization [place] [address] Care Team Providers Care Lamp Developer Name Role Phone Marcela Pinto MD Primary Care Provider [phone] Reason for Visit * Reason Comments Acute Encounter Details Date Type Department Care Team Description 08/26/2019 Office Visit General Internal Medicine [facility] [address] [place], [place] [id number] Marcela Pinto MD [address] [place] [address] [phone] Chronic maxillary sinusitis*; Controlled substance agreement signed; Otalgia of both ears; Type 2 diabetes mellitus with hemoglobin A1c goal of less than 7.5% ([facility]); Diabetes mellitus screening Allergies Active Allergy Reactions Severity Noted Date Comments Valsartan 07/10/2010 Enalapril 05/21/2006 Escitalopram Oxalate Nausea/vomiting 10/11/2009 Nauseated Iodinated Diagnostic Agents Nausea/vomiting 05/2010 IV Contrast Lisinopril 05/21/2006 Metoprolol Tartrate 11/18/2006 Made pulse low [place] Oil-Black Currant-Vit E 07/10/2010 Verapamil 03/21/2004 Bupropion Hcl 10/30/2009 Makes pt sick in the stomach documented as of this encounter (statuses as of 08/26/2019) Medications Medication Sig Dispensed Refills Start Date [...] EVERY DAY 90 Tab 2 02/08/2019 Active Terazosin HCl 2 MG Capsule TAKE 1 CAPSULE BY MOUTH EVERY DAY 90 Cap 1 03/12/2019 Active omeprazole (PRILOSEC) 20 MG CPDRIndications:Isch emic colitis (HCC) TAKE 1 CAPSULE BY MOUTH TWICE A DAY 180 Cap 1 03/22/2019 Active COMBIVENT RESPIMAT 20-100 MCG/ACT InhalerIndications:A sthma with severity to be determined,COPD, moderate (HCC) TAKE 1 PUFF BY MOUTH 4 TIMES A DAY 4 g 11 03/30/2019 Active docusate sodium (COLACE) 100 MG Capsule Take 1 Cap by mouth daily. 90 Cap 0 03/31/2019 Active traZODone (DESYREL) 50 MG TabletIndications:GA D (generalized anxiety disorder) Take 1 Tab by mouth at bedtime. 30 Tab 5 04/06/2019 Active ferrous sulfate (FEOSOL) 325 (65 FE) MG Tablet One tablet every other day 60 Tab 11 04/16/2019 Active zafirlukast (ACCOLATE) 20 MG TabletIndications:As thma with severity to be determined Take 1 Tab by mouth daily. 90 Tab 1 04/20/2019 Active dilTIAZem HCl ER Beads 360 MG [id number]:HTN, goal below 130/80 TAKE 1 CAPSULE BY MOUTH EVERY DAY 90 Cap 1 05/27/2019 Active albuterol sulfate (PROVENTIL) (2.5 MG/3ML) 0.083% nebulizer solutionIndications: Asthma with severity to be determined,COPD, moderate (HCC) USE ONE NEBULIZER TREATMENT TWICE A DAY DIRECTED FOR WORSENING ASTHMA. J45.909, J44.9 225 mL 1 06/29/2019 Active HYDROcodone-acetamin ophen 5-325 mg per tab 5-325 MG per tabletIndications:Ge neralized osteoarthritis Take 1 Tab by mouth every 6 hours as needed for Pain, Mild. 120 Tab 0 08/05/2019 Active atorvaSTATin (LIPITOR) 40 MG TabletIndications:Hy perlipidemia [...] nostril daily. 1 Bottle 11 08/26/2019 Active documented as of this encounter (statuses as of 08/26/2019) Active Problems Problem Noted Date COPD, group [...] as of this encounter (statuses as of 08/26/2019) Resolved Problems Problem Noted Date Resolved Date [...] Hypoxemia 10/08/2011 10/30/2015 Genetic Sleep Disorder Research Other*[id number] 07/25/2011 05/15/2016 Diverticulitis of colon 07/25/2011 01/06/20 [...] as of this encounter (statuses as of 08/26/2019) Immunizations Name Administration Dates Next Due Hepatitis [...] Sign Reading Time Taken Comments Blood Pressure 122/60 08/26/2019 2:19 PM EST Pulse 64 08/26/2019 2:19 PM EST Temperature 36.9 C (98.4 F) 08/26/2019 2:19 PM ES T Respiratory Rate 13 08/26/2019 2:19 PM EST Oxygen Saturation - - Inhaled Oxygen Concentration - - Weight 112.5 kg (248 lb) 08/26/2019 2:19 PM EST Height 165.1 cm (5' 5") 08/26/2019 2:19 PM EST Body Mass Index 41.27 08/26/2019 2:19 PM EST documented in this encounter Progress Notes * Marcela Pinto MD - 08/26/2019 2:33 PM EST HPI: Nina Harrington is a 78 year old female who presents with: Chief Complaint Patient presents with Acute Pt is here for the sinus pressure, postnasal drip, minimal cough, BL ear pain, facial pain, headache, feeling of stuffiness and facial pressure for last one month and getting worse.Patient denies anychestpain or wheezing or sob. States recently finished taking doxy for 10 days. No GI s/s. Reviewed recent labs, glucose 126. Will get labs today. Needs urine drug screen. 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 Allergic rhinitis J30.9 Nocturnal hypoxia G47.34 Sleep apnea, obstructive G47.33 Incisional hernia K43.2 ACEI/ARB contraindicated [id number] HTN, goal below 140/90 I10 Hyperlipidemia with target LDL less than 100 E78.5 Controlled substance agreement signed Z79.899 Type 2 diabetes mellitus with hemoglobin A1c goal of less than 7.5% ([facility]) E11.9 Hypercalcemia E83.52 Elevated plasma metanephrines R79.89 Irritable bowel syndrome with constipation K58.1 Ischemic colitis ([facility]) K55.9 Body mass index (BMI) of 40.0 to 44.9 in adult ([facility]) Z68.41 HECTOR (generalized anxiety disorder) F41.1 COPD, group B, by GOLD 2017 classification ([facility]) J44.9 Current Outpatient Medications Medication Sig Dispense Refill atorvaSTATin (LIPITOR) 40 MG Tablet TAKE 1 TABLET BY MOUTH EVERY DAY 90 Tab 1 HYDROcodone-acetaminophen 5-325 mg per tab 5-325 MG per tablet Take 1 Tab by mouth every 6 hours as needed for Pain, Mild. 120 Tab 0 albuterol sulfate (PROVENTIL) (2.5 MG/3ML) 0.083% nebulizer solution USE ONE NEBULIZER TREATMENT TWICE A DAY DIRECTED FOR WORSENING ASTHMA. J45.909, J44.9 225 mL 1 dilTIAZem HCl ER Beads 360 MG CP24 TAKE 1 CAPSULE BY MOUTH EVERY DAY 90 Cap 1 zafirlukast (ACCOLATE) 20 MG Tablet Take 1 Tab by mouth daily. 90 Tab 1 ferrous sulfate (FEOSOL) 325 (65 FE) MG Tablet One tablet every other day 60 Tab 11 traZODone (DESYREL) 50 MG Tablet Take 1 Tab by mouth at bedtime. 30 Tab 5 docusate sodium (COLACE) 100 MG Capsule Take 1 Cap by mouth daily. 90 Cap 0 COMBIVENT RESPIMAT 20-100 MCG/ACT Inhaler TAKE 1 PUFF BY MOUTH 4 TIMES A DAY 4 g 11 omeprazole (PRILOSEC) 20 MG CPDR TAKE 1 [...] DIAGNOSIS CODE OF E11.9 100 Strip 5 polyethylene glycol 3350 (MIRALAX) [...] 1000 UNITS PO TABS one tablet daily RaNITidine HCl 300 MG Tablet Take 0.5 Tabs by mouth at bedtime. (Patient not taking: Reported on 08/26/2019) 90 Tab 1 The patient's medication list was reviewed and updated as needed. 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 OBJECTIVE: BP 122/60 | Pulse 64 | Temp (Src) 98.4 (Tympanic) | Resp 13 | Ht 5' 5" (1.651m) | Wt 248 lbs (112.492kg) | BMI 41.27 kg/m | BSA 2.27 m PHYSICAL EXAM: HEENT: PERRLA, EOMI, anicteric sclera, b/l tympanic membrane is pearly white, no erythema, no pharyngeal erythema, no lymphadenopathy, neck supple, facial tenderness minimal. CVS: RRR, no murmurs, rubs or gallops, s1 s 2normal. RESP: clear to auscultation, no wheezing or crackles EXT: no edema, cyanosis, peripheral pulses palpable bilaterally No large joint swelling, no redness, range of motion normal. Skin normal. Gait normal. Mood stable No focal weakness ASSESSMENT AND PLAN: Chronic maxillary sinusitis (Primary) - predniSONE (DELTASONE) 10 MG Tablet; Take 5 tabs for 2 days, 4 tabs for 2 days, 3 tabs for 2 days, 2 tabs for 2 days 1 tab for 2 days - fluticasone (FLONASE) 50 MCG/ACT nasal spray; Administer 2 Sprays into each nostril daily. Continue claritin daily. Advised hydration. Controlled substance agreement signed - OPIOIDS/BENZO COMPLIANCE MONITORING W/INTERP; Future; Expected date: 08/26/2019 Otalgia of both ears - predniSONE (DELTASONE) 10 MG Tablet; Take 5 tabs for 2 days, 4 tabs for 2 days, 3 tabs for 2 days, 2 tabs for 2 days 1 tab for 2 days - fluticasone (FLONASE) 50 MCG/ACT nasal spray; Administer 2 Sprays into each nostril daily. documented in this encounter Nursing Notes * Renetta Gu LPN - 08/26/2019 2:18 PM EST Left side of face has pain, documented in this encounter Miscellaneous Notes * Addendum Note - Ida Medina PBT - 08/26/2019 2:59 PM EST Addended by: IDA MEDINA on: 08/26/2019 02:59 PM Modules accepted: Orders documented in this encounter Plan of Treatment Upcoming Encounters Date Type Specialty Care Team Description 10/11/2019 Office Visit Family Medicine Cari Wynne PA-C [address] [place] [address] [phone] 10/11/2019 Nutrition Services Gastroenterology Nita Enriquez, AKIKO [address] [place] [place] [address] [phone] 10/14/2019 Office Visit Podiatry [facility] [address] [place] [address] [phone] 02/01/2020 Office Visit Internal Medicine Marcela Pinto MD [address] [place] [address] [phone] 06/06/2020 Imaging Radiology Pending Results Name Type Priority Associated Diagnoses Date /Time OPIOIDS/BENZO COMPLIANCE MONITORING W/INTERP Lab Routine Controlled substance agreement signed 08/26/2019 2:57 PM EST HEMOGLOBIN A1C Lab Routine Type 2 diabetes mellitus with hemoglobin A1c goal of less than 7.5% (HCC) Diabetes mellitus screening 08/26/2019 2:55 PM EST Scheduled Orders Name Type Priority Associated Diagnoses Orde r Schedule OPIOIDS/BENZO COMPLIANCE MONITORING W/INTERP Lab Routine Controlled substance agreement signed Expected: 08/26/2019 (Approximate), Expires: 11/26/2019 Health Maintenance Due Date Last Done Comments DIABETES-EYE EXAM 09/14/2019 09/14/2018, , 12/31/2013, Additional history exists DIABETES-FOOT EXAM 01/06/2020 01/05/2019, 0 01/16/2018, 11/15/2016, Additional history exists DIABETES-HGBA1C EVERY 6 MONTHS 02/10/2020 08/12/2019, 03/22/2019, 01/12/2019, Additional history exists DXA-EVERY 5 YRS-USE SMARTSET# [id number] TO ORDER 05/01/2020 05/01/2015, 06/19/2010, 06/19/2010, Additional history exists DIABETES-URINE MICROALBUMIN EVERY 12 MONTHS 07/09/2020 07/09/2019, 03/22/2019, 12/25/2018, Additional history exists COLONOSCOPY-EVERY 3 YRS AGES [...] Procedure Name Priority Date/Time Associated Diagnosis Comments URINE TEMPERATURE Routine 08/26/2019 2:5 7 PM EST documented in this encounter Results * URINE TEMPERATURE (08/26/2019 2:57 PM EST) URINE TEMPERATURE 92 90 - 100 F [place] Specimen Performing Organization Address City/State/Zipcod e Phone Number [facility], [address] [place] [address] documented in this encounter Visit Diagnoses Diagnosis Chronic maxillary sinusitis- Primary Controlled substance agreement signed Encounter for long-term (current) use of other medications Otalgia of both ears Otalgia, unspecified Type 2 diabetes mellitus with hemoglobin A1c goal of less than 7.5% (HCC) Diabetes mellitus screening Screening for diabetes mellitus documented in this encounter Advance Directives Documents on File Type Date Recorded Patient Kit Assembler 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
--- OUTSIDE RECORDS SUMMARY | 2023-06-18 03:33 | External Medical Summary | Summary of Care ---
Author Name Unknown Organization [place] [address] Care Team Providers Care Edger Runner Name Role Phone Marcela Pinto MD Primary Care Provider [phone] Reason for Visit * Reason Comments Acute Encounter Details Date Type Department Care Team Description 08/26/2019 Office Visit General Internal Medicine [facility] [address] [place], [place] [address] Marcela Pinto MD [address] [place] [address] [phone] Chronic maxillary sinusitis*; Controlled substance agreement signed; Otalgia of both ears; Type 2 diabetes mellitus with hemoglobin A1c goal of less than 7.5% ([facility]); Diabetes mellitus screening Allergies Active Allergy Reactions [...] [place]) USE TO TEST BLOOD SUGAR 4 TIMES [...] Active dilTIAZem HCl ER Beads 360 MG [id number]:HTN, goal below 130/80 TAKE 1 CAPSULE BY [...] Hypoxemia 10/08/2011 10/30/2015 Genetic Sleep Disorder Research Other*[id number] 07/25/2011 05/15/2016 Diverticulitis of colon 07/25/2011 01/06/20 [...] obstructive G47.33 Incisional hernia K43.2 ACEI/ARB contraindicated [id number] HTN, goal below 140/90 I10 Hyperlipidemia with target LDL less than 100 E78.5 Controlled substance agreement signed Z79.899 Type 2 diabetes mellitus with hemoglobin A1c goal of less than 7.5% ([facility]) E11.9 Hypercalcemia E83.52 Elevated plasma metanephrines R79.89 Irritable bowel syndrome with constipation K58.1 Ischemic colitis ([facility]) K55.9 Body mass index (BMI) of 40.0 to 44.9 in adult ([facility]) Z68.41 HECTOR (generalized anxiety disorder) F41.1 COPD, group B, by GOLD 2017 classification ([facility]) J44.9 Current Outpatient Medications Medication Sig Dispense 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, 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 Social Needs Financial resource strain: Not on [...] file Gets together: Not on file Attends protestant service: Not on file Active member of [...] face has pain, documented in this encounter Plan of Treatment Upcoming Encounters Date Type Specialty Care Team Description 10/11/2019 Office Visit Family Medicine Cari Wynne PA-C [address] [facility] [place] [address] [phone] 10/11/2019 Nutrition Services Gastroenterology Nita Enriquez RDN [address] [place] [address] [phone] 10/14/2019 Office Visit Podiatry [facility] [address] [place] [address] [phone] 02/01/2020 Office Visit Internal Medicine Marcela Pinto MD [address] [facility], [place] [address] [phone] 06/06/2020 Imaging Radiology Pending Results Name Type Priority Associated Diagnoses Date /Time HEMOGLOBIN A1C Lab Routine Type 2 diabetes [...] of this encounter Visit Diagnoses Diagnosis Chronic maxillary sinusitis- Primary Controlled substance agreement signed Encounter for long-term (current) use of other medications Otalgia of both ears Otalgia, unspecified Type 2 diabetes mellitus with hemoglobin A1c goal of less than 7.5% ([facility]) Diabetes mellitus screening Screening for diabetes mellitus documented in this encounter Advance Directives Documents on File Type Date Recorded Patient Programming Development Project Manager 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
--- OUTSIDE RECORDS SUMMARY | 2023-06-18 03:33 | External Medical Summary | Summary of Care ---
Author Name Unknown Organization [place] [address] Care Team Providers Care Supervisor Concrete Block Plant Name Role Phone Marcela Pinto MD Primary Care Provider [phone] Reason for Visit * Reason Comments Advice Encounter Details Date Type Department Care Team Description 08/25/2019 Telephone General Internal Medicine [facility] [address] [place] [address] Marcela Pinto MD [address] [place] [address] Advice Allergies Active Allergy Reactions Severity Noted Date Comments Valsartan 07/10/2010 Enalapril 05/21/2006 Escitalopram Oxalate Nausea/vomiting 10/11/2009 Nauseated Iodinated Diagnostic Agents Nausea/vomiting 05/2010 IV Contrast Lisinopril 05/21/2006 Metoprolol Tartrate 11/18/2006 Made pulse low [place] Oil-Black Currant-Vit E 07/10/2010 Verapamil 03/21/2004 Bupropion Hcl 10/30/2009 Makes pt sick in the stomach documented as of this encounter (statuses as of 08/25/2019) Medications Medication Sig Dispensed Refills Start Date [...] at bedtime. 90 Tab 1 11/25/2018 Active glimepiride (AMARYL) 4 MG TabletIndications:Ty pe [...] Active dilTIAZem HCl ER Beads 360 MG SQ78Pmhohyqejik:HTN, goal below 130/80 TAKE 1 CAPSULE BY [...] EVERY DAY 90 Tab 1 08/12/2019 Active documented as of this encounter (statuses as of 08/25/2019) Active Problems Problem Noted Date COPD, group [...] as of this encounter (statuses as of 08/25/2019) Resolved Problems Problem Noted Date Resolved Date [...] Hypoxemia 10/08/2011 10/30/2015 Genetic Sleep Disorder Research Other*[id number] 07/25/2011 05/15/2016 Diverticulitis of colon 07/25/2011 01/06/20 [...] as of this encounter (statuses as of 08/25/2019) Immunizations Name Administration Dates Next Due Hepatitis [...] Miscellaneous Notes * Telephone Encounter - Ashley Mcmahan LPN - 08/25/2019 3:07 PM EST Pt calling in. Thinks she has a sinus infection. Left side of her face around her nose/sinus, under her eye and into her neck at times. Has has symptoms for 3 or 4 weeks. No fever. She thought symptoms would go away on their own, but they still have not. Had some left over doxycycline that she took but didn't take the symptoms away either. She will have a ride to [facility] Charge Payment tomorrow so she wants to come see PCP. Scheduled per pt request. documented in this encounter Plan of Treatment Upcoming Encounters Date Type Specialty Care Team Description 08/26/2019 Office Visit Internal Medicine Marcela Pinto MD [address] [facility] [place], [place] [address] [phone] 10/11/2019 Nutrition Services Gastroenterology Nita Enriquez RDN [address] [place] [address] [phone] 10/14/2019 Office Visit Podiatry [facility] [address] [place] [address] [phone] 02/01/2020 Office Visit Internal Medicine Marcela Pinto MD [address] [facility] [place], [place] [address] [phone] 06/06/2020 Imaging Radiology Health Maintenance Due Date [...] Documents on File Type Date Recorded 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
--- OUTSIDE RECORDS SUMMARY | 2023-06-18 03:33 | External Medical Summary ---
Author Name Unknown Address [address] [place] [address] Phone Organization K01:[facility] [address] [place] [id number] Laboratory Report Ordering Provider Test Date Status JOSE A JOHNSON 08/26/2019 14:57:00 Final Observation Date Value Abnormality Reference Status Opiates Cfm Meth Ur 09/01/2019 07:54 LCMSMS Final Codeine 09/01/2019 07:54 NEGATIVE NEG Fin al Morphine, Urine confirmatory 09/01/2019 07:54 NEGATIVE NEG Final Hydrocodone mini baccarat dealer Ur [facility] 09/01/2019 07:54 2719 Abnor mal NEG Final Hydromorphone Ur-nc 09/01/2019 07:54 159 Abnormal N EG Final DIHYDROCODEINE 09/01/2019 07:54 1961 Abnormal NEG Final Oxycodone mini baccarat dealer Ur [facility] 09/01/2019 07:54 NEGATIVE NEG Final Oxymorphone mini baccarat dealer Ur [facility] 09/01/2019 07:54 NEGATIVE NEG Final Cutoff Concentration 09/01/2019 07:54 Final Performing Location [facility] [address] [facility] [address]
--- OUTSIDE RECORDS SUMMARY | 2023-06-18 03:33 | External Medical Summary | Summary of Care ---
Author Name Unknown Organization [place] [address] Care Team Providers Care Commissary Assistant Name Role Phone Marcela Pinto MD Primary Care Provider [phone] Reason for Visit * Reason Comments Follow Up nail care Encounter Details Date Type Department Care Team Description 07/08/2019 Office Visit Podiatry [facility] [address] [facility] [place] [address] [facility], French Pol[place] [address] [place] [address] [facility] [place] [address] Onychomycosis*; Type 2 diabetes mellitus with hemoglobin A1c goal of less than 7.5% ([facility]) Allergies Active Allergy Reactions Severity Noted Date Comments Valsartan 07/10/2010 Enalapril 05/21/2006 Escitalopram Oxalate Nausea/vomiting 10/11/2009 Nauseated Iodinated Diagnostic Agents Nausea/vomiting 05/2010 IV Contrast Lisinopril 05/21/2006 Metoprolol Tartrate 11/18/2006 Made pulse low [place] Oil-Black Currant-Vit E 07/10/2010 Verapamil 03/21/2004 Bupropion Hcl 10/30/2009 Makes pt sick in the stomach documented as of this encounter (statuses as of 08/12/2019) Medications Medication Sig Dispensed Refills Start Date [...] [facility]) USE TO TEST BLOOD SUGAR 4 [...] FOR NAUSEA 60 Tab 5 9 Active RaNITidine HCl 300 MG Tablet Take 0.5 Tabs by mouth at bedtime. 90 Tab 1 9 Active glimepiride (AMARYL) 4 MG TabletIndications:T ype 2 diabetes mellitus with hemoglobin A1c goal of less than 7.5% (HCC) Take 0.5 Tabs by mouth daily before breakfast. 90 Tab 3 9 Active dicyclomine (BENTYL) 20 MG TabletIndications:C hronic constipation TAKE 1 TABLET BY MOUTH EVERY DAY 90 Tab 2 9 Active Terazosin HCl 2 MG Capsule TAKE 1 CAPSULE BY MOUTH EVERY DAY 90 Cap 1 9 Active omeprazole (PRILOSEC) 20 MG CPDRIndications:Isc hemic colitis (HCC) TAKE 1 CAPSULE BY MOUTH TWICE A DAY 180 Cap 1 9 Active COMBIVENT RESPIMAT 20-100 MCG/ACT InhalerIndications: Asthma with severity to be determined,COPD, moderate (HCC) TAKE 1 PUFF BY MOUTH 4 TIMES A DAY 4 g 11 9 Active docusate sodium (COLACE) 100 MG Capsule Take 1 Cap by mouth daily. 90 Cap 0 9 Active traZODone (DESYREL) 50 MG TabletIndications:G AD (generalized anxiety disorder) Take 1 Tab by mouth at bedtime. 30 Tab 5 9 Active ferrous sulfate (FEOSOL) 325 (65 FE) MG Tablet One tablet every other day 60 Tab 11 9 Active zafirlukast (ACCOLATE) 20 MG TabletIndications:A sthma with severity to be determined Take 1 Tab by mouth daily. 90 Tab 1 9 Active dilTIAZem HCl ER Beads 360 MG QQ09Wbvnunlutpm:HTN , goal below 130/80 TAKE 1 CAPSULE BY MOUTH EVERY DAY 90 Cap 1 9 Active albuterol sulfate (PROVENTIL) (2.5 MG/3ML) 0.083% nebulizer solutionIndications :Asthma with severity to be determined,COPD, moderate (HCC) USE ONE NEBULIZER TREATMENT TWICE A DAY DIRECTED FOR WORSENING ASTHMA. J45.909, J44.9 225 mL 1 9 Active atorvaSTATin (LIPITOR) 40 MG TabletIndications:H yperlipidemia with target LDL less than 100 Take 1 Tab by mouth daily. 90 Tab 3 8 08/11/20 19 Discontinued HYDROcodone-acetami nophen 5-325 mg per tab 5-325 MG per tabletIndications:G eneralized osteoarthritis Take 1 Tab by mouth every 6 hours as needed for Pain, Mild. 120 Tab 0 9 08/04/20 19 Discontinued documented as of this encounter (statuses as of 08/12/2019) Active Problems Problem Noted Date COPD, group [...] as of this encounter (statuses as of 08/12/2019) Resolved Problems Problem Noted Date Resolved Date [...] Hypoxemia 10/08/2011 10/30/2015 Genetic Sleep Disorder Research Other*[id number] 07/25/2011 05/15/2016 Diverticulitis of colon 07/25/2011 01/06/20 [...] as of this encounter (statuses as of 08/12/2019) Immunizations Name Administration Dates Next Due Hepatitis B, 20+ yrs 10/01/2017,04/21/2017,03/20 Pneumococcal Conjugate Vacc, 13 Valent (Prevnar) 03/28/2015 Pneumococcal Polysaccharide PPV23 (Pneumovax) 05/21/2006 Seasonal Influenza, Quadriva lent, No Preserve, 6 Mons & Above, IM 06/16/2018,07/30/2017 Seasonal Influenza, Quadriva lent, No Preserve, IM 08/15/2016,07/14/2015 Seasonal Influenza, Trivalen t, with Preserve, 3yr [...] Travel End documented as of this encounter Progress Notes * Marly Rodriguez DPM - 08/12/2019 3:28 PM EDT Podiatry Established Note [facility] Name: Nina Harrington : 1940 Date: 07/08/19 1. Onychomycosis 2. Type 2 diabetes mellitus with hemoglobin A1c goal of less than 7.5% ([facility]) Patient was seen and toenails were addressed by certified nail specialist Atif Kasper under my supervision. She performed procedure without issue and patient was amendable to this today. Follow up: 3 months, they were instructed to call sooner with any concerns or new issues documented in this encounter Nursing Notes * Marichuy Kasper TECH - 07/08/2019 12:40 PM EDT The patient presents today for foot care. They offer no additional complaints outside of their toenails. Procedure: After mild cleansing and drying of toes, toenails 1-5 bilaterally were manually and mechanically reduced to appropriate length with a sterile nail nipper. Incurvating edges were removed. An electrical Dremel tool with bur was used in a side to side motion to reduce nail thickness, hypertrophic growth, and to smooth all edges. This was performed without incident. Patient tolerated well. documented in this encounter Plan of Treatment Upcoming Encounters Date Type Specialty Care Team Description 08/16/2019 Nutrition Services Gastroenterology Nita Enriquez, [place] [address] [place] [address] [facility] [place] [address] [phone] 10/14/2019 Office Visit [facility] [address] [place] [address] [phone] 02/01/2020 Office Visit Internal Medicine Marcela Pinto MD [address] [place] [address] [phone] 06/06/2020 Imaging Radiology Scheduled Orders Name Type Priority Associated Diagnoses Orde r Schedule DEBRIDEMENT OF NAILS 6 OR MORE Procedures Routine Onychomycosis Type 2 diabetes mellitus with hemoglobin A1c goal of less than 7.5% ([facility]) Ordered: 08/12/2019 Health Maintenance Due Date Last Done Comments DIABETES-EYE EXAM 09/14/2019 09/14/2018, , 12/31/2013, Additional history exists DIABETES-HGBA1C EVERY 6 MONTHS 09/21/2019 03/22/2019, 01/12/2019, 07/27/2018, Additional history exists DIABETES-FOOT EXAM 01/06/2020 01/05/2019, 0 01/16/2018, 11/15/2016, Additional history exists DXA-EVERY 5 YRS-USE SMARTSET# [...] as of this encounter Visit Diagnoses Diagnosis Onychomycosis- Primary Dermatophytosis of nail Type 2 diabetes mellitus with hemoglobin A1c goal of less than 7.5% (HCC) documented in this encounter Advance Directives Documents on File Type Date Recorded Patient Network Consultant 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
--- OUTSIDE RECORDS SUMMARY | 2023-06-18 03:33 | External Medical Summary ---
Author Name Unknown Address [address] [place] [address] Phone Organization K01:[place] [address] Laboratory Report Ordering Provider Test Date Status JOSE A JOHNSON 08/26/2019 14:57:00 Final Observation Date Value Abnormality Reference Status Amphetamines Cfm Meth Ur 09/01/2019 07:54 LCMSMS Final Amphetamine, Urine confirmatory 09/01/2019 07:54 NEGATIVE NEG Final Methamphetamine, Urine confirmatory 09/01/2019 07:54 NEGATIVE NEG Final Phentermine extrusion operator Ur Cfm-mCnc 09/01/2019 07:54 NEGATIVE NEG Final EPHEDRINE 09/01/2019 07:54 NEGATIVE NEG Fin al PSEUDOEPHEDRINE 09/01/2019 07:54 NEGATIVE NEG Final MDMA 09/01/2019 07:54 NEGATIVE NEG Fin al Cutoff Concentration 09/01/2019 07:54 Final Performing Location [place] [id number]
--- OUTSIDE RECORDS SUMMARY | 2023-06-18 03:33 | External Medical Summary | Summary of Care ---
Author Name Unknown Organization [place] [address] Care Team Providers Care Churn Operator Name Role Phone Marcela Pinto MD Primary Care Provider [phone] Reason for Visit * Reason Comments case management Encounter Details Date Type Department Care Team Description 08/30/2019 Wiper Blender Care Coordination [address] [place] [address] Amy Parker LPN Need for case management follow-up* Allergies Active Allergy Reactions Severity Noted Date Comments Valsartan 07/10/2010 Enalapril 05/21/2006 Escitalopram Oxalate Nausea/vomiting 10/11/2009 Nauseated Iodinated Diagnostic Agents Nausea/vomiting 05/2010 IV Contrast Lisinopril 05/21/2006 Metoprolol Tartrate 11/18/2006 Made pulse low [place] Oil-Black Currant-Vit E 07/10/2010 Verapamil 03/21/2004 Bupropion Hcl 10/30/2009 Makes pt sick in the stomach documented as of this encounter (statuses as of 08/30/2019) Medications Medication Sig Dispensed Refills Start Date [...] [facility]) USE TO TEST BLOOD SUGAR 4 TIMES [...] Active dilTIAZem HCl ER Beads 360 MG QH91Kbzvhlcqxlf:HTN, goal below 130/80 TAKE 1 CAPSULE BY [...] as of this encounter (statuses as of 08/30/2019) Active Problems Problem Noted Date COPD, group [...] as of this encounter (statuses as of 08/30/2019) Resolved Problems Problem Noted Date Resolved Date [...] Hypoxemia 10/08/2011 10/30/2015 Genetic Sleep Disorder Research Other*[id number] 07/25/2011 05/15/2016 Diverticulitis of colon 07/25/2011 01/06/20 [...] as of this encounter (statuses as of 08/30/2019) Immunizations Name Administration Dates Next Due Hepatitis [...] as of this encounter Progress Notes * Amy Parker LPN - 08/30/2019 7:42 AM EST Closing from IVR documented in this encounter Plan of Treatment Upcoming Encounters Date Type Specialty Care Team Description 10/11/2019 Office Visit Family Medicine Cari Wynne PA-C [address] [facility] [place] [address] 10/11/2019 Nutrition Services Gastroenterology Nita Enriquez RDN [address] [place] [address] 10/14/2019 Office Visit Podiatry [facility] [address] [place] [address] 02/01/2020 Office Visit Internal Medicine Marcela Pinto MD [address] [facility] [place] [address] [phone] 06/06/2020 Imaging Radiology Health Maintenance Due Date [...] this encounter Visit Diagnoses Diagnosis Need for case management follow-up- Primary documented in this encounter Advance Directives Documents on File Type Date Recorded Patient Cosmetic Maker 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
--- OUTSIDE RECORDS SUMMARY | 2023-06-18 03:33 | External Medical Summary ---
Author Name Unknown Address [address] [place] [address] Phone Organization K01:[facility] [address] [place] [id number] Laboratory Report Ordering Provider Test Date Status JOSE A JOHNSON 08/26/2019 14:57:00 Final Observation Date Value Abnormality Reference Status COMPLIANCE INTERP 09/02/2019 12:43 (NOTE) Final Performing Location [facility] [address] [place] [id number]
--- OUTSIDE RECORDS SUMMARY | 2023-06-18 03:33 | External Medical Summary ---
Author Name Unknown Address [facility] [place] [address] Phone Organization K01:[place] [address] [place] [id number] Laboratory Report Ordering Provider Test Date Status JOSE A JOHNSON 08/26/2019 14:55:00 Final Observation Date Value Abnormality Reference Status HbA1C 08/26/2019 22:15 6.6 Above high normal 4.0-5 .6 Final Performing Location [place] [address] [address] [facility] [place] [address]
--- OUTSIDE RECORDS SUMMARY | 2023-06-18 03:33 | External Medical Summary | Summary of Care ---
Author Name Unknown Organization [place] [address] Care Team Providers Care Vending Machine Filler Name Role Phone Marcela Pinto MD Primary Care Provider [phone] Encounter Details Date Type Department Care Team Description 08/12/2019 Orders Only General Internal Medicine [facility] [address] [place], [place] [id number] Marcela Pinto MD [address] [facility] [place] [address] [phone] Allergies Active Allergy Reactions Severity Noted Date Comments Valsartan 07/10/2010 Enalapril 05/21/2006 Escitalopram Oxalate Nausea/vomiting 10/11/2009 Nauseated Iodinated Diagnostic Agents Nausea/vomiting 05/2010 IV Contrast Lisinopril 05/21/2006 Metoprolol Tartrate 11/18/2006 Made pulse low [place] Oil-Black Currant-Vit E 07/10/2010 Verapamil 03/21/2004 Bupropion [...] than 7.0% ([facility]) USE TO TEST BLOOD SUGAR [...] Active dilTIAZem HCl ER Beads 360 MG RH16Iocisntjcvq:HTN, goal below 130/80 TAKE 1 CAPSULE BY [...] Hypoxemia 10/08/2011 10/30/2015 Genetic Sleep Disorder Research Other*[id number] 07/25/2011 05/15/2016 Diverticulitis of colon 07/25/2011 01/06/20 [...] Team Description 08/16/2019 Nutrition Services Gastroenterology Nita Enriquez RDN [address] [place] [address] [phone] 10/14/2019 [facility] [address] [place] [address] [phone] 02/01/2020 Office Visit Internal Medicine Marcela Pinto MD [address] [place] [address] [phone] 06/06/2020 Imaging Radiology Health Maintenance Due Date [...] Priority Date/Time Associated Diagnosis Comments CHEMISTRY-OUTSIDE Routine 08/12/2019 TSH Routine 08/12/2019 documented in this encounter Results * TSH (08/12/2019) TSH - OUTSIDE LAB 0.448 0.360 - 3.740 MCLU/ML OUTSIDE LAB (SEE SCANNED REPORT) Specimen Narrative Performed At Performing Organization Address City/State/Zipcod e Phone Number OUTSIDE LAB (SEE SCANNED REPORT) * CHEMISTRY-OUTSIDE (08/12/2019) CREATININE-OUTSIDE LAB 0.90 0.55 - 1.02 MG/DL OUTSIDE LAB (SEE SCANNED REPORT) GFR ESTIMATED-OUTSIDE LAB >60 >60 ML/MIN OUTSIDE LAB (SEE SCANNED REPORT) POTASSIUM-OUTSIDE LAB 3.9 3.5 - 5.1 MMOL/L OUTSIDE LAB (SEE SCANNED REPORT) GLUCOSE-OUTSIDE LAB 126(A) 70 - 110 MG/DL OUTSIDE LAB (SEE SCANNED REPORT) HOURS FASTING OUTSIDE LAB (S EE SCANNED REPORT) TRIGLYCERIDES-OUTSIDE LAB 156 30 - 200 MG/DL OUTSIDE LAB (SEE SCANNED REPORT) CHOLESTEROL-OUTSIDE LAB 180 <=200 MG/DL OUTSIDE LAB (SEE SCANNED REPORT) HDL-OUTSIDE LAB 54.0 40.0 - 59.0 MG/DL OUTSIDE LAB (SEE SCANNED REPORT) CHOL/HDL RATIO-OUTSIDE LAB OUTSIDE LAB (SEE SCANNED REPORT) LDL (CALCULATED)-OUTSIDE LAB 94.80 <=100 MG/DL OUTSIDE LAB (SEE SCANNED REPORT) LDL (DIRECT MEASURE)-OUTSIDE LAB 100 <=100 MG/DL OUTSIDE LAB (SEE SCANNED REPORT) HEMOGLOBIN, X3Y-EAYDVMR LAB 6.6(A) 4.2 - 6.3 % OUTSIDE LAB (SEE SCANNED REPORT) PHOSPHORUS-OUTSIDE LAB OUTSIDE LAB (SEE SCANNED REPORT) PTH-OUTSIDE LAB OUTSIDE LAB (SEE SCANNED REPORT) MICROALBUMIN RATIO-OUTSIDE LAB OUTSIDE LAB (SEE SCANNED REPORT) PROTEIN, UA-OUTSIDE LAB OUTSIDE LAB (SEE SCANNED REPORT) HEMOGLOBIN-OUTSIDE LAB 11.3(A) 12.0 - 16.0 GM/DL OUTSIDE LAB (SEE SCANNED REPORT) CHEMISTRY COMMENT-OUTSIDE LAB Comment:SEE SCAN: CBC, CMP, LDL DIRECT, HA1C, HEPATIC FUNCTION, LIPID PANEL, MG, FT4, TSH OUTSIDE LAB (SEE SCANNED REPORT) Specimen Narrative Performed At Performing Organization Address City/State/Zipcod e Phone Number OUTSIDE LAB (SEE SCANNED REPORT) documented in this encounter Advance Directives Documents on File Type Date Recorded Patient Rater Associate 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
--- OUTSIDE RECORDS SUMMARY | 2023-06-18 03:33 | External Medical Summary ---
Author Name Unknown Address [address] [place], [place] [address] Phone Organization K09:[facility] [address] [place] [address] Laboratory Report Ordering Provider Test Date Status JOSE A JOHNSON 08/26/2019 14:57:00 Final Observation Date Value Abnormality Reference Status Temp Ur 08/26/2019 14:58 92 90-100 Fin al Performing Location [facility] [place] [address] [place] [address]
--- OUTSIDE RECORDS SUMMARY | 2023-06-18 03:33 | External Medical Summary | Summary of Care ---
Author Name Unknown Organization [place] [address] Care Team Providers Care Optical Instrument Assembler Name Role Phone Marcela Pinto MD Primary Care Provider [phone] Encounter Details Date Type Department Care Team Description 08/30/2019 Orders Only General Internal Medicine [facility] [address] [place], [place] [id number] Marcela Pinto MD [address] [facility] [place] [address] [phone] Allergies Active Allergy Reactions Severity Noted Date Comments Valsartan 07/10/2010 Enalapril 05/21/2006 Escitalopram Oxalate Nausea/vomiting 10/11/2009 Nauseated Iodinated Diagnostic Agents Nausea/vomiting 05/2010 IV Contrast Lisinopril 05/21/2006 Metoprolol Tartrate 11/18/2006 Made pulse low [place] [...] Active dilTIAZem HCl ER Beads 360 MG DU63Pobgmjgibjz:HTN, goal below 130/80 TAKE 1 CAPSULE BY [...] Hypoxemia 10/08/2011 10/30/2015 Genetic Sleep Disorder Research Other*[id number] 07/25/2011 05/15/2016 Diverticulitis of colon 07/25/2011 01/06/20 [...] Visit Family Medicine Cari Wynne PA-C [address] [facility] [place] [address] [phone] 10/11/2019 Nutrition Services Gastroenterology Nita Enriquez RDN [address] [place] [place] [address] [phone] 10/14/2019 Office Visit Podiatry [facility] [address] [place] [id number] 02/01/2020 Office Visit Internal Medicine Marcela Pinto MD 200 [facility] [place] [facility] [place] [address] [phone] 06/06/2020 Imaging Radiology Health Maintenance Due Date [...] Associated Diagnosis Comments DIABETIC EYE EXAM Routine 08/10/2019 documented in this encounter Results * DIABETIC EYE EXAM (08/10/2019) Specimen Narrative Performed At Performing Organization Address City/State/Zipcod e Phone Number OUTSIDE LAB (SEE SCANNED REPORT) documented in this encounter Advance Directives Documents on File Type Date Recorded Patient Diagrammer And Seamer 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
--- OUTSIDE RECORDS SUMMARY | 2023-06-18 03:33 | External Medical Summary | Summary of Care ---
Author Name Unknown Organization [place] [address] Care Team Providers Care Check Processor Name Role Phone Marcela Pinto MD Primary Care Provider [phone] Reason for Visit * Reason Comments case management survey trigger Encounter Details Date Type Department Care Team Description 08/23/2019 Telephone Care Coordination [address] [place] [address] Amy Parker LPN case management (survey trigger ) Allergies Active Allergy Reactions Severity Noted Date Comments Valsartan 07/10/2010 Enalapril 05/21/2006 Escitalopram Oxalate Nausea/vomiting 10/11/2009 Nauseated Iodinated Diagnostic Agents Nausea/vomiting 05/2010 IV Contrast Lisinopril 05/21/2006 Metoprolol Tartrate 11/18/2006 Made pulse low [place] Oil-Black Currant-Vit E 07/10/2010 Verapamil 03/21/2004 Bupropion Hcl 10/30/2009 Makes pt sick in the stomach documented as of this encounter (statuses as of 08/24/2019) Medications Medication Sig Dispensed Refills Start Date [...] Active dilTIAZem HCl ER Beads 360 MG [id number]:HTN, goal below 130/80 TAKE 1 CAPSULE BY [...] as of this encounter (statuses as of 08/24/2019) Active Problems Problem Noted Date COPD, group [...] as of this encounter (statuses as of 08/24/2019) Resolved Problems Problem Noted Date Resolved Date [...] Hypoxemia 10/08/2011 10/30/2015 Genetic Sleep Disorder Research Other*[id number] 07/25/2011 05/15/2016 Diverticulitis of colon 07/25/2011 01/06/20 [...] as of this encounter (statuses as of 08/24/2019) Immunizations Name Administration Dates Next Due Hepatitis [...] Telephone Encounter - Renetta Gu LPN - 08/24/2019 2:47 PM EST Faxed order with demographics to [facility] * Telephone Encounter - Marcela Pinto MD - 08/24/2019 12:05 PM EST Noted. Signed. * Telephone Encounter - Dulce Coffman OSA - 08/23/2019 2:01 PM EST Pt stated she only used the oxygen at night when she is sleeping. She has the oxygen on number 4 she said. * Telephone Encounter - Teresita Madrigla LPN - 08/23/2019 1:55 PM EST left message for patient to call back. * Telephone Encounter - Marcela Pinto MD - 08/23/2019 1:51 PM EST Noted. Please confirm how much oxygen she is using currently and when? Ambulation, rest or night time? Thanks. * Telephone Encounter - Amy Parker LPN - 08/23/2019 1:47 PM EST Covering primary CM Cici Gama Patient triggered on COPD automated call She answered yes to the question asking If she has had trouble breathing, wheezing, or a cough worsening within the last month Phone call to patient She answered yes as the cold air will make her breathing worse. She has to wear a scarf around her mouth and nose when she is out in the cold and that helps. Denies any acute illness at this time-no wheezing/productive cough/fever She is inquiring though if PCP would order a battery operated portable oxygen tank for her. To takewith her out if needed, and a backup for at home incase the power would go out. Would like it faxed to [facility] Order pended if agreeable Thank you! documented in this encounter Plan of Treatment Upcoming Encounters Date Type Specialty Care Team Description 10/11/2019 Nutrition Services Gastroenterology Nita Enriquez RDN [address] [place] [address] [phone] 10/14/2019 Office Visit Podiatry [facility] [address] [place] [address] [place] [address] [phone] 02/01/2020 Office Visit Internal Medicine Marcela Pinto MD 200 [facility] [address] [phone] 06/06/2020 Imaging Radiology Health Maintenance Due Date [...] B, by GOLD 2017 classification (HCC)- Primary documented in this encounter Advance Directives Documents on File Type Date Recorded Patient Day Light Relief Operator 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
--- OUTSIDE RECORDS SUMMARY | 2023-06-18 03:34 | External Medical Summary | Summary of Care ---
Author Name Unknown Organization [place] [address] Care Team Providers Care Corrections Specialist Name Role Phone Marcela Pinto MD Primary Care Provider [phone] Reason for Visit * Reason Comments Med Request Status Check Encounter Details Date Type Department Care Team Description 06/24/2019 Telephone General Internal Medicine [facility] [address] [place] [address] Marcela Pinto MD [address] [place] [address] Med Request; Status Check Allergies Active Allergy Reactions Severity Noted Date Comments Valsartan 07/10/2010 Enalapril 05/21/2006 Escitalopram Oxalate Nausea/vomiting 10/11/2009 Nauseated Iodinated Diagnostic Agents Nausea/vomiting 05/2010 IV Contrast Lisinopril 05/21/2006 Metoprolol Tartrate 11/18/2006 Made pulse low [place] Oil-Black Currant-Vit E 07/10/2010 Verapamil 03/21/2004 Bupropion Hcl 10/30/2009 Makes pt sick in the stomach documented as of this encounter (statuses as of 07/02/2019) Medications Medication Sig Dispensed Refills Start Date [...] [facility]) USE TO TEST BLOOD SUGAR 4 [...] FOR EDEMA 30 Tab 11 8 Active atorvaSTATin (LIPITOR) 40 MG TabletIndications:H yperlipidemia with target LDL less than 100 Take 1 Tab by mouth daily. 90 Tab 3 8 Active Nebulizers (NEBULIZER COMPRESSOR) MISC Inhale [...] Active dilTIAZem HCl ER Beads 360 MG [id number] , goal below 130/80 TAKE 1 CAPSULE BY MOUTH EVERY DAY 90 Cap 1 9 Active HYDROcodone-acetami nophen 5-325 mg per tab 5-325 MG per tabletIndications:G eneralized osteoarthritis Take 1 Tab by mouth every 6 hours as needed for Pain, Mild. 120 Tab 0 9 Active albuterol sulfate (PROVENTIL) (2.5 MG/3ML) 0.083% nebulizer solutionIndications :Asthma with severity to be determined,COPD, moderate (HCC) USE ONE NEBULIZER TREATMENT TWICE A DAY DIRECTED FOR WORSENING ASTHMA. J45.909, J44.9 225 mL 1 9 Active albuterol sulfate (PROVENTIL) (2.5 MG/3ML) 0.083% nebulizer solutionIndications :Asthma with severity to be determined,COPD, moderate (HCC) USE ONE NEBULIZER TREATMENT TWICE A DAY NEEDED FOR WORSENING ASTHMA. J45.909, J44.9 225 mL 1 8 06/27/20 19 Discontinued albuterol sulfate (PROVENTIL) (2.5 MG/3ML) 0.083% nebulizer solutionIndications :Asthma with severity to be determined,COPD, moderate (HCC) USE ONE NEBULIZER TREATMENT TWICE A DAY NEEDED FOR WORSENING ASTHMA. J45.909, J44.9 225 mL 1 9 06/29/20 19 Discontinued documented as of this encounter (statuses as of 07/02/2019) Active Problems Problem Noted Date Body mass index (BMI) of 40.0 [...] 6:18 hrs, SOREN 18.7 Refusing CPAP AHP COPD, moderate 07/19/2011 Overview: Dr Bhatti every 6 months Allergic rhinitis 07/19/2011 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 Asthma with severity to be determined Generalized osteoarthritis ACEI/ARB contraindicated documented as of this encounter (statuses as of 07/02/2019) Resolved Problems Problem Noted Date Resolved Date [...] Hypoxemia 10/08/2011 10/30/2015 Genetic Sleep Disorder Research Other*[id number] 07/25/2011 05/15/2016 Diverticulitis of colon 07/25/2011 01/06/20 19 Obesity, morbid (more than 1 00 lbs [...] as of this encounter (statuses as of 07/02/2019) Immunizations Name Administration Dates Next Due Hepatitis [...] Used Alcohol Use Drinks/Week oz/Week Comments No Sex Assigned at Date Recorded Female 04/06/2019 2:19 PM E DT Job Start Date Occupation Industry Not on file Not on file Not on file Travel History Travel Start Travel End documented as of this encounter Miscellaneous Notes * Telephone Encounter - Rody Fountain PHARM Tech - 07/02/2019 9:12 AM EDT Aurelia calling to check on status of previous message. She stated she would need the exact form faxed back for medicare billing and guidelines. Please confirm and contact the pharmacy [address] once completed and faxed. Caller can be reached at [phone]. Thank You, Rody Fountain Ironworker Foreman [facility] 07/02/2019, 9:12 AM * Telephone Encounter - Renetta Gu LPN - 07/01/2019 11:25 AM EDT Will complete upon arrival. Thank you * Telephone Encounter - Vicenta Meek PHARM Tech - 07/01/2019 10:16 AM EDT Pharmacy is calling to request the billing form sent to fax [phone] be filled and returned because they are billing Medicare they need this form for Medicare's guide lines. Please fill and return this to fax [phone]. Thanks, Vicenta Meek [facility] [phone] 07/01/2019,10:17 AM * Telephone Encounter - Winnie Dolan PHARM Tech - 06/30/2019 10:34 AM EDT [facility] calling to request that provider sign over form. Caller can be reached at [phone] . Thank you, Winnie Dolan Ironworker Foreman [facility] 06/30/2019, 10:34 AM * Telephone Encounter - Renetta Gu LPN - 06/30/2019 8:54 AM EDT Is actually showing that went by phone order. Prescribed medication called to confirmed pharmacy. Thank you * Telephone Encounter - Marcela Pinto MD - 06/29/2019 4:10 PM EDT Seems like taken care of. Can we confirm with pharmacy? thanks. * Addendum Note - Mckayla Dawson RPh - 06/29/2019 12:35 PM EDT Addended by: MCKAYLA DAWSON on: 06/29/2019 12:35 PM Modules accepted: Orders * Telephone Encounter - Mckayla Dawson RPh - 06/29/2019 12:35 PM EDT Resent. Thanks, Mckayla Dawson, Jamal Clinical Pharmacist [facility] [phone] 06/29/2019,12:35 PM * Telephone Encounter - Jaymie Mccoy CPhT - 06/29/2019 12:21 PM EDT Drs NPI must be on the rx and it cannot say "as needed" can say "as directed" please fix and send back for the nebulizer solution ThanksJaymie Ironworker Foreman Pharmacy Refill Call Center 06/29/2019, 12:22 PM * Addendum Note - Mckayla Dawson [facility] - 06/29/2019 10:31 AM EDT Addended by: MCKAYLA DAWSON on: 06/29/2019 10:31 AM Modules accepted: Orders * Telephone Encounter - Mckayla Dawson [facility] - 06/29/2019 10:30 AM EDT Ordered and faxed to pharmacy. Thanks, Mckayla Dawson, PharmD Clinical Pharmacist [facility] [phone] 06/29/2019,10:30 AM * Telephone Encounter - Uyen Steven [facility] - 06/29/2019 10:22 AM EDT Pharmacy checking status of medication Please fax to [phone] Pending Prescriptions: Disp Refills albuterol sulfate (PROVENTIL) (2.5 MG/3ML*225 mL 1 Sig: USE ONE NEBULIZER TREATMENT TWICE A DAY NEEDED FOR WORSENING ASTHMA. J45.909, J44.9 Last Office Visit: 04/06/2019 Next Office Visit: 07/09/2019 Scheduled Provider(s): Marcela Pinto MD If no future appointments scheduled, and last appointment is greater than a year ago, please schedule patient for a follow-up appointment Last date the medication was ordered: 07/17/2018 Pharmacy: [id number] [id number] [facility] Is this request for a controlled substance?No Urine Drug Screen: Results for orders placed or performed in visit on 01/16/18 OPIOIDS/BENZO COMPLIANCE MONITORING W/INTERP Result Value COMPLIANCE INTERP (NOTE) URINE DRUG SCREEN RESULT AMPHETAMINES NEGATIVE BARBITURATES NEGATIVE BENZODIAZEPINES NEGATIVE CANNABINOIDS NEGATIVE COCAINE METABOLITE NEGATIVE METHADONE METABOLITE NEGATIVE MORPHINE / CODEINE REFER TO CONFIRMATION RESULT (A) OXYCODONE REFER TO CONFIRMATION RESULT (A) COMMENT THE ABOVE SCREENING RESULTS ARE PRESUMPTIVE AND CAN ONLY BE USED FOR MEDICAL PURPOSES. CONFIRMATORY TESTING IS AVAILABLE UPON REQUEST. Cutoff Concentration URINE VALID INTERP NORMAL CREATININE TIM 57 NITRITE TIM 4 pH TIM 5.0 *Note: Due to a large number of results and/or encounters for the requested time period, some results have not been displayed. A complete set of results can be found in Results Review. Patient Phone Numbers Labs: Lab Results Component Value Date/Time CREAT 0.85 03/22/2019 CREAT 0.9 07/27/2018 11:32 AM POTASSIUM 4.6 07/27/2018 11:32 AM TSH 0.42 07/27/2018 11:32 AM LDLCALC 57.40 03/22/2019 LDLCALC 95 07/27/2018 11:32 AM LDLDIRECT 99 01/12/2019 LDLDIRECT 97 07/27/2018 11:32 AM ALT 9 (L) 07/27/2018 11:32 AM HGBA1C 6.7 (A) 03/22/2019 HGBA1C 6.8 (H) 07/27/2018 11:32 AM * Addendum Note - Nita Alarcon CPhT - 06/28/2019 10:24 AM EDT Addended by: NITA ALARCON on: 06/28/2019 10:24 AM Modules accepted: Orders * Telephone Encounter - Nita Alarcon CPhT - 06/28/2019 10:23 AM EDT [id number] is calling to check on status of albuterol sulfate NEB SOLN Rx. Please FAX RX TO [phone]. Pt can be reached at the following number(s): Patient Phone Numbers Thank you, Nita Alarcon Ironworker Foreman Pharmacy Refill Call Center 06/28/2019, 10:23 AM * Addendum Note - Renetta Gu LPN - 06/27/2019 1:21 PM EDT Addended by: RENETTA GU on: 06/27/2019 01:21 PM Modules accepted: Orders * Telephone Encounter - Jaymie Mccoy CPhT - 06/25/2019 9:53 AM EDT [facility] checking status Thanks, Jaymie Mccoy Ironworker Foreman Pharmacy Refill Call Center 06/25/2019, 9:53 AM * Telephone Encounter - Mary Freeman PHARM Tech - 06/24/2019 11:25 AM EDT [address] calling stating they had faxed request for albuterol sulfate (PROVENTIL) (2.5 MG/3ML) 0.083% nebulizer solution. Nathaly from [facility] requesting Rx faxed back to Nathaly can be reached at [phone] Thank you, Mary Masters Ironworker Foreman [facility] 06/24/2019, 11:29 AM documented in this encounter Plan of Treatment Upcoming Encounters Date Type Specialty Care Team Description 07/08/2019 [facility] [address] [place] [address] [place] [address] 07/09/2019 Office Visit Internal Medicine Marcela Pinto MD [address] [place], [place] [address] [phone] 07/13/2019 Nutrition Services Gastroenterology Nita Enriquez RDN [address] [place] [place] [address] [phone] 06/06/2020 Imaging Radiology Health Maintenance Due Date Last Done Comments *O2 ASSESSMENT COMPLETED IN PAST YEAR FOR COPD 05/18/2019 Influenza Vaccine (FLU shot) (#1) 2019 06/16/2018, 07/30/2017, 08/15/2016, Additional history exists DIABETES-EYE EXAM 09/14/2019 09/14/2018, , 12/31/2013, Additional history exists DIABETES-HGBA1C EVERY 6 MONTHS 09/21/2019 03/22/2019, 01/12/2019, 07/27/2018, Additional history exists DIABETES-FOOT EXAM 01/06/2020 01/05/2019, 0 01/16/2018, 11/15/2016, Additional history exists DIABETES-URINE MICROALBUMIN EVERY 12 MONTHS 03/22/2020 03/22/2019, 12/25/2018, 07/27/2018, Additional history exists DXA-EVERY 5 YRS-USE SMARTSET# 3348 TO ORDER 05/01/2020 05/01/2015, 06/19/2010, 06/19/2010, Additional history exists COLONOSCOPY-EVERY 3 YRS AGES 18-100 02/28/2021 02/28/2018, 06/05/2017, 05/29/2016, Additional history exists DTaP,Tdap,and Td Vaccines (2 - Td) 06/04/2028 06/04/2018, 02/28/2009 Pneumococcal Vaccine: 65+ Years Completed 03/28/2015, 05/21/2006 MENINGOCOCCAL (MENACTRA) Aged Out No longer eligible based on patient's age to complete this topic documented as of this encounter Implants Not on filedocumented as of this encounter Visit Diagnoses Diagnosis Asthma with severity to be determined COPD, moderate (HCC) Chronic airway obstruction, not elsewhere classified documented in this encounter Advance Directives Documents on File Type Date Recorded Patient Production Scheduler Expl anation Advanced Directive Advanced Directive Advanced Directive Advanced Directive Advanced Directive Advanced Directive Advanced Directive Advanced Directive Advanced Directive Advanced Directive Advanced Directive Advanced Directive Advanced Directive Advanced Directive Advanced Directive
--- OUTSIDE RECORDS SUMMARY | 2023-06-18 03:34 | External Medical Summary ---
Author Name Unknown Address [address] [place], [place] [address] Phone Organization K09:[facility] [address] [place] [address] Laboratory Report Ordering Provider Test Date Status JOSE A JOHNSON 07/09/2019 13:48:00 Final Observation Date Value Abnormality Reference Status BUN 07/09/2019 15:01 18 6-20 Fin al Creatinine 07/09/2019 15:01 1.0 0.5-1.0 Fi nal Performing Location [facility] [place] [address] [place] [address]
--- OUTSIDE RECORDS SUMMARY | 2023-06-18 03:34 | External Medical Summary | Summary of Care ---
Author Name Unknown Organization [place] [address] Care Team Providers Care Leather Repairer Name Role Phone Marcela Pinto MD Primary Care Provider [phone] Reason for Visit * Reason Comments Advice Encounter Details Date Type Department Care Team Description 08/04/2019 Telephone General Internal Medicine [facility] [address] [place] [address] Mracela Pinto MD [address] [place], [place] [id number] Advice Allergies Active Allergy Reactions Severity Noted Date Comments Valsartan 07/10/2010 Enalapril 05/21/2006 Escitalopram Oxalate Nausea/vomiting 10/11/2009 Nauseated Iodinated Diagnostic Agents Nausea/vomiting 05/2010 IV Contrast Lisinopril 05/21/2006 Metoprolol Tartrate 11/18/2006 Made pulse low [place] Oil-Black Currant-Vit E 07/10/2010 Verapamil 03/21/2004 Bupropion Hcl 10/30/2009 Makes pt sick in the stomach documented as of this encounter (statuses as of 08/05/2019) Medications Medication Sig Dispensed Refills Start Date [...] Active dilTIAZem HCl ER Beads 360 MG [id number]:HTN , goal below 130/80 TAKE 1 CAPSULE BY MOUTH EVERY DAY 90 Cap 1 9 Active albuterol sulfate (PROVENTIL) (2.5 MG/3ML) 0.083% nebulizer solutionIndications :Asthma with severity to be determined,COPD, moderate (HCC) USE ONE NEBULIZER TREATMENT TWICE A DAY DIRECTED FOR WORSENING ASTHMA. J45.909, J44.9 225 mL 1 9 Active HYDROcodone-acetami nophen 5-325 mg per tab 5-325 MG per tabletIndications:G eneralized osteoarthritis Take 1 Tab by mouth every 6 hours as needed for Pain, Mild. 120 Tab 0 9 08/04/20 19 Discontinued documented as of this encounter (statuses as of 08/05/2019) Active Problems Problem Noted Date COPD, group [...] as of this encounter (statuses as of 08/05/2019) Resolved Problems Problem Noted Date Resolved Date [...] Hypoxemia 10/08/2011 10/30/2015 Genetic Sleep Disorder Research Other*[id number] 07/25/2011 05/15/2016 Diverticulitis of colon 07/25/2011 01/06/20 [...] as of this encounter (statuses as of 08/05/2019) Immunizations Name Administration Dates Next Due Hepatitis [...] Telephone Encounter - Renetta Gu LPN - 08/05/2019 3:32 PM EDT Faxed. Thank you * Telephone Encounter - Veronica Piper OSA - 08/04/2019 12:41 PM EDT An order was requested for this patient. Name of Requesting Provider: [facility] Order Requested: Nebulizer equipment Diagnosis/Reason for Request: breathing treatments Does the order need to be faxed somewhere? If so, where?: [facility] Fax Number, if applicable: [phone] Call Back Number: [facility] calling stating request was faxed to PCP on 08/03/2019. documented in this encounter Plan of Treatment Upcoming Encounters Date Type Specialty Care Team Description 08/16/2019 Nutrition Services Gastroenterology Nita Enriquez, AKIKO [address] [place] [address] [phone] 10/14/2019 Office Visit Podiatry Region, [facility] [address] [place] [address] [place] [address] [phone] 02/01/2020 Office Visit Internal Medicine Marcela Pinto MD [address] [facility] [place] [address] [phone] 06/06/2020 Imaging Radiology Health Maintenance Due Date [...] Diagnoses Diagnosis Asthma with severity to be determined- Primary COPD, moderate (HCC) Chronic airway obstruction, not elsewhere classified documented in this encounter Advance Directives Documents on File Type Date Recorded Patient Shade Bander Expl anation Advanced Directive Advanced Directive Advanced Directive Advanced Directive Advanced Directive Advanced Directive Advanced Directive Advanced Directive Advanced Directive Advanced Directive Advanced Directive Advanced Directive Advanced Directive Advanced Directive Advanced Directive
--- OUTSIDE RECORDS SUMMARY | 2023-06-18 03:34 | External Medical Summary ---
Author Name Unknown Address [facility] [place] [address] Phone Organization K01:[place] [address] [place] [id number] Laboratory Report Ordering Provider Test Date Status JOSE A JOHNSON 07/09/2019 13:57:00 Final Observation Date Value Abnormality Reference Status Albumin, Urine 07/09/2019 22:17 1.76 Final Creat Ur-sCnc 07/09/2019 22:17 128 Final Microalbumin / Creatinine Ratio 07/09/2019 22:17 14 <30 Final Performing Location [facility] [address] [id number]
--- OUTSIDE RECORDS SUMMARY | 2023-06-18 03:34 | External Medical Summary | Summary of Care ---
Author Name Unknown Organization [place] [address] Care Team Providers Care Choir Teacher Name Role Phone Marcela Pinto MD Primary Care Provider [phone] Reason for Visit * Reason Comments Follow Up Emergency Department Follow-Up pre-op exam Medication Administration Flu and/or Pne umo Inj Encounter Details Date Type Department Care Team Description 07/09/2019 Office Visit General Internal Medicine [facility] [address] [place] [address] Marcela Pinto MD [address] [place] [address] [id number] Preoperative general physical examination*; COPD, moderate (HCC); Asthma with severity to be determined; Polyuria; Need for prophylactic vaccination and inoculation against influenza; Type 2 diabetes mellitus with hemoglobin A1c goal of less than 7.5% (HCC); Ischemic colitis (HCC); Hyperlipidemia with target LDL less than 100; HECTOR (generalized anxiety disorder); Diverticulitis large intestine w/o perforation or abscess w/bleeding; Dysuria Allergies Active Allergy Reactions Severity Noted Date Comments Valsartan 07/10/2010 Enalapril 05/21/2006 Escitalopram Oxalate Nausea/vomiting 10/11/2009 Nauseated Iodinated Diagnostic Agents Nausea/vomiting 05/2010 IV Contrast Lisinopril 05/21/2006 Metoprolol Tartrate 11/18/2006 Made pulse low [place] Oil-Black Currant-Vit E 07/10/2010 Verapamil 03/21/2004 Bupropion Hcl 10/30/2009 Makes pt sick in the stomach documented as of this encounter (statuses as of 07/09/2019) Medications Medication Sig Dispensed Refills Start Date [...] than 7.0% ([facility]) USE TO TEST BLOOD SUGAR 4 [...] FOR EDEMA 30 Tab 11 05/25/2018 Active atorvaSTATin (LIPITOR) 40 MG TabletIndications:Hy perlipidemia with target LDL less than 100 Take 1 Tab by mouth daily. 90 Tab 3 09/07/2018 Active Nebulizers (NEBULIZER COMPRESSOR) MISC Inhale via [...] Active dilTIAZem HCl ER Beads 360 MG [id number]:HTN, goal below 130/80 TAKE 1 CAPSULE BY MOUTH EVERY DAY 90 Cap 1 05/27/2019 Active HYDROcodone-acetamin ophen 5-325 mg per tab 5-325 MG per tabletIndications:Ge neralized osteoarthritis Take 1 Tab by mouth every 6 hours as needed for Pain, Mild. 120 Tab 0 06/23/2019 Active albuterol sulfate (PROVENTIL) (2.5 MG/3ML) 0.083% nebulizer solutionIndications: Asthma with severity to be determined,COPD, moderate (HCC) USE ONE NEBULIZER TREATMENT TWICE A DAY DIRECTED FOR WORSENING ASTHMA. J45.909, J44.9 225 mL 1 06/29/2019 Active ciprofloxacin (CIPRO) 500 MG TabletIndications:Po lyuria,Diverticuliti s large intestine w/o perforation or abscess w/bleeding,Dysuria Take 1 Tab by mouth every 12 hours for 10 days. 20 Tab 0 07/09/2019 9 Active documented as of this encounter (statuses as of 07/09/2019) Active Problems Problem Noted Date HECTOR (generalized anxiety disorder) 07/09 Body mass [...] as of this encounter (statuses as of 07/09/2019) Resolved Problems Problem Noted Date Resolved Date [...] Hypoxemia 10/08/2011 10/30/2015 Genetic Sleep Disorder Research Other*[id number] 07/25/2011 05/15/2016 Diverticulitis of colon 07/25/2011 01/06/20 [...] as of this encounter (statuses as of 07/09/2019) Immunizations Name Administration Dates Next Due Hepatitis [...] Sign Reading Time Taken Comments Blood Pressure 126/70 07/09/2019 1:04 PM EDT Pulse 88 07/09/2019 1:04 PM EDT Temperature 37.9 C (100.2 F) 07/09/2019 1:04 PM E DT Respiratory Rate 14 07/09/2019 1:04 PM EDT Oxygen Saturation 90% 07/09/2019 1:04 PM EDT Inhaled Oxygen Concentration - - Weight 113.2 kg (249 lb 9.6 oz) 07/09/2019 1:04 PM EDT Height 165.1 cm (5' 5") 07/09/2019 1:04 PM EDT Body Mass Index 41.54 07/09/2019 1:04 PM EDT documented in this encounter Patient Instructions * Patient Instructions* Renetta Gu LPN - 07/09/2019 1:08 PM EDT ~~PATIENT INSTRUCTIONS FOR FLU SHOT~~ [...] Progress Notes * Marcela Pinto MD - 07/09/2019 1:15 PM EDT HPI: Nina Harrington is a 78 year old female with a history of COPD moderate, nocturnal hypoxia, on oxygen2 L at nighttime, history of generalized osteoarthritis, allergic rhinitis, hyperlipidemia, hypertension, history of type 2 diabetes mellitus, ischemic colitis, history of diverticulosis and recurrent diverticulitis for which she is not a surgical candidate comes here for ER follow-up, preop examination clearance and recheck who presents with: Chief Complaint Patient presents with Follow Up Emergency Department Follow-Up pre-op exam Medication Administration Flu and/or Pneumo Inj Patient is here for the ER follow up chart reviewed from ER and as per the discussion with the patient and review of the chart seems like on 06/23/2019 patient ended up in emergency room with rectal bleeding acute episode along with left lower abdomen and flank area pain. Patient had stable vitals except borderline high blood pressure but no fever in emergency room. Had labs including comprehensive profile, CBCD, urine analysis, macroscopic and culture, CT abdomen and pelvis, chest x-ray. Workupshowed mild anemia with hemoglobin of 11.5, normal WBC normal LFT and no sign of UTI. CT abdomen showed sigmoid and rectal hyperemia with diverticulosis and signs of acute on chronic sigmoid diverticulitis. Patient received fentanyl, IV fluid, pain medication and IV antibiotic in emergency room. Patient was sent home on oral Cipro and Flagyl after stable condition in ER and took an antibiotic fora week which finished last week. Pt is going for left eye cataract surgery on 08/03/19 at [facility] in [place] by Dr. Rayo. Has decreased vision Pt follows with Pulmonary Dr. Bhatti and uses inahler regulalry. Denies any chestpain/palpitation/swealling in the legs. Denies any cough/wheezing/chestpain. Chronic mild sob since she gained few pounds. Urinary urgency+, no blood in urine. 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 COPD, moderate ([facility]) J44.9 Allergic rhinitis J30.9 Nocturnal hypoxia G47.34 Sleep apnea, obstructive G47.33 Incisional hernia K43.2 ACEI/ARB contraindicated [id number] HTN, goal below 140/90 I10 Hyperlipidemia with target LDL less than 100 E78.5 Controlled substance agreement signed Z79.899 Type 2 diabetes mellitus with hemoglobin A1c goal of less than 7.5% ([facility]) E11.9 Hypercalcemia E83.52 Elevated plasma metanephrines R79.89 Irritable bowel syndrome with constipation K58.1 Ischemic colitis ([facility]) K55.9 Body mass index (BMI) of 40.0 to 44.9 in adult ([facility]) Z68.41 Current Outpatient Medications Medication Sig Dispense Refill albuterol sulfate (PROVENTIL) (2.5 MG/3ML) 0.083% nebulizer solution USE ONE NEBULIZER TREATMENT TWICE A DAY DIRECTED FOR WORSENING ASTHMA. J45.909, J44.9 225 mL 1 HYDROcodone-acetaminophen 5-325 mg per tab 5-325 [...] mouth daily before breakfast. 90 Tab 3 RaNITidine HCl 300 MG Tablet Take 0.5 Tabs by mouth at bedtime. 90 Tab 1 ondansetron ODT (ZOFRAN) 8 MG TBDP DISSOLVE 1 TABLET ON TONGUE EVERY 8 HOURS NEEDED FOR NAUSEA 60 Tab 5 Nebulizers (NEBULIZER COMPRESSOR) MISC Inhale via nebulizer. Use as directed. Please give tubing to use with it. 1 Each 1 atorvaSTATin (LIPITOR) 40 MG Tablet Take 1 Tab by mouth daily. 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 OBJECTIVE: BP 126/70 | Pulse 88 | Temp (Src) 100.2 (Tympanic) | Resp 14 | Ht 5' 5" (1.651m) | Wt 249 lbs 9.6 oz (113.218kg) | BMI 41.54 kg/m | BSA 2.28 m | SaO2 90% PHYSICAL EXAM: HEENT: PERRLA, EOMI, anicteric sclera, [...] stable No focal weakness ASSESSMENT AND PLAN: Preoperative general physical examination (Primary) Clinically stable except low grade fever, urinary s/s and will rule out UTI. Advised hydration, avoid nsaids before surgery. COPD, moderate (HCC) - PULSE OX W/ REST/EXERCISE, MULTIPLE (OP) Asthma with severity to be determined - PULSE OX W/ REST/EXERCISE, MULTIPLE (OP) Polyuria - URINE W/ MICROSCOPIC - CULTURE QUANT URINE Need for prophylactic vaccination and inoculation against influenza - INFLUENZA VACC, IIV, SUBUNIT, ADJUVANTED, IM Type 2 diabetes mellitus with hemoglobin A1c goal of less than 7.5% (HCC) - ALBUMIN / CREATININE RATIO, URINE continu current meds. Ischemic colitis (HCC) Stable Hyperlipidemia with target LDL less than 100 HECTOR (generalized anxiety disorder) Stable. Diverticulitis large intestine w/o perforation or abscess w/bleeding Improving. Low fiber diet. * Renetta Gu LPN - 07/09/2019 1:08 PM EDT PRE - ADMINISTRATION DOCUMENTATION Are you allergic to latex? No Are you experiencing any cold symptoms or fever? No Have you had Guillain-Goldfield Syndrome (an illness that causes paralysis)? No Have you had the flu shot in the past? YES Have you ever had a reaction to the flu shot? No Renetta Gu LPN, 07/09/2019 1:08 PM Immunization Administration Documentation Time Out Procedure Performed: Yes Patient Identified (Ask Name/Date of ): Yes Does the patient have a fever greater than 101 degrees today? No Patient allergic to latex? No VFC Stock: No Immunization(s) verified: Yes, Immunization Name: Flu, VIS Sheet(s) given: Yes Verified Side and Site: Yes Verified Shot(s) with Parent(s)/Patient: Yes documented in this encounter Miscellaneous Notes * Addendum Note - Freda Calderon TECH - 07/09/2019 1:59 PM EDT Addended by: FREDA CALDERON on: 07/09/2019 01:59 PM Modules accepted: Orders documented in this encounter Plan of Treatment Upcoming Encounters Date Type Specialty Care Team Description 08/16/2019 Nutrition Services Gastroenterology Nita Enriquez RDN [address] [place] [address] [phone] 10/14/2019 Office Visit Podiatry [facility] [address] [place] [address] [phone] 02/01/2020 Office Visit Internal Medicine Marcela Pinto MD [address] [place] [address] [phone] 06/06/2020 Imaging Radiology Pending Results Name Type Priority Associated Diagnoses Date /Time URINE W/ MICROSCOPIC Lab STAT Polyuria 07/09/2019 1:57 PM EDT CULTURE QUANT URINE Lab Routine Polyuria 07/09/2019 1:57 PM EDT ALBUMIN / CREATININE RATIO, URINE Lab Routine Type 2 diabetes mellitus with hemoglobin A1c goal of less than 7.5% (HCC) 07/09/2019 1:57 PM EDT CBC/DIFF Lab Routine Diverticulitis large intestine w/o perforation or abscess w/bleeding 07/09/2019 1:50 PM EDT COMPR METAB PANEL Lab Routine Diverticulitis large intestine w/o perforation or abscess w/bleeding 07/09/2019 1:50 PM EDT Scheduled Orders Name Type Priority Associated Diagnoses Orde r Schedule CBC/DIFF Lab Routine Diverticulitis large intestine w/o perforation or abscess w/bleeding Expected: 07/09/2019 (Approximate), Expires: 07/09/2020 COMPR METAB PANEL Lab Routine Diverticulitis large intestine w/o perforation or abscess w/bleeding Expected: 07/09/2019, Expires: 08/08/2020 Health Maintenance Due Date Last Done Comments [...] Procedure Name Priority Date/Time Associated Diagnosis Comments PULSE OX W/ REST/EXERCISE, MULTIPLE (OP) Routine 07/09/2019 COPD, moderate (HCC) Asthma with severity to be determined documented in this encounter Results * PULSE OX W/ REST/EXERCISE, MULTIPLE (OP) (07/09/2019) Pulse Oximetry-Initial Rest 87 Pulse Oximetry-During Exercise 85 Pulse Oximetry-Post Exercise 88Comment:upon sitting down, uses oxygen at night Pulse Oximetry-Post Nebulizer Specimen documented in this encounter Visit Diagnoses Diagnosis Preoperative general physical examination- Primary Other specified pre-operative examination COPD, moderate (HCC) Chronic airway obstruction, not elsewhere classified Asthma with severity to be determined Polyuria Need for prophylactic vaccination and inoculation against influenza Type 2 diabetes mellitus with hemoglobin A1c goal of less than 7.5% (HCC) Ischemic colitis (HCC) Unspecified vascular insufficiency of intestine Hyperlipidemia with target LDL less than 100 Other and unspecified hyperlipidemia HECTOR (generalized anxiety disorder) Generalized anxiety disorder Diverticulitis large intestine w/o perforation or abscess w/bleeding Diverticulitis of colon with hemorrhage Dysuria documented in this encounter Advance Directives Documents on File Type Date Recorded 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
--- OUTSIDE RECORDS SUMMARY | 2023-06-18 03:34 | External Medical Summary ---
Author Name Unknown Address Unknown Organization [facility] USE ONLY!!! Laboratory Report Ordering Provider Test Date Status JOSE A JOHNSON 07/09/2019 13:57:00 Final Observation Date Value Abnormality Reference Status Source 07/09/2019 13:57 URINE Fin al Bacteria XXX Cult 07/10/2019 16:25 LESS THAN 10, 000 COLONIES/ML MIXED NORMAL STEVAN Final REPORT STATUS 07/10/2019 16:25 07/10/2019 FINAL Final Performing Location IT USE ONLY!!!
--- OUTSIDE RECORDS SUMMARY | 2023-06-18 03:34 | External Medical Summary | Summary of Care ---
Author Name Unknown Organization [place] [address] Care Team Providers Care Emergency Planner Name Role Phone Alex Pinto MD Primary Care Provider [phone] Reason for Referral * Medication Prior Authorization (Routine) Status Reason Specialty Diagnoses / Procedures Re ferred By Contact Referred To Contact Closed Diagnoses Generalized osteoarthritis Alex Pinto MD [address] [place] [address] Reason for Visit * Reason Comments Medication Refill Encounter Details Date Type Department Care Team Description 08/04/2019 Refill General Internal Medicine [facility] [address] [place] [address] Alex Pinto MD [address] [place] [address] [phone] GENERAL OSTEOARTHROSIS Allergies Active Allergy Reactions Severity Noted Date Comments Valsartan 07/10/2010 Enalapril 05/21/2006 Escitalopram Oxalate Nausea/vomiting 10/11/2009 Nauseated Iodinated Diagnostic Agents Nausea/vomiting 05/2010 IV Contrast Lisinopril 05/21/2006 Metoprolol Tartrate 11/18/2006 Made pulse low [place] Oil-Black Currant-Vit E 07/10/2010 Verapamil 03/21/2004 Bupropion [...] ([facility]) USE TO TEST BLOOD SUGAR 4 [...] Tab by mouth daily. 90 Tab 3 11/26/201 8 Active Nebulizers (NEBULIZER COMPRESSOR) [facility] Inhale via nebulizer. Use as directed. [...] Active dilTIAZem HCl ER Beads 360 MG OC41Bdxqbwmwywr:HTN , goal below 130/80 TAKE 1 CAPSULE [...] Pain, Mild. 120 Tab 0 9 Active HYDROcodone-acetami nophen 5-325 mg per [...] Hypoxemia 10/08/2011 10/30/2015 Genetic Sleep Disorder Research Other*[id number] 07/25/2011 05/15/2016 Diverticulitis of colon 07/25/2011 01/06/20 [...] Telephone Encounter - Alex Pinto MD - 08/05/2019 3:10 PM EDT Signed Prescriptions: Disp Refills HYDROcodone-acetaminophen 5-325 mg per tab*120 Tab0 Sig: Take 1 Tab by mouth every 6 hours as needed for Pain, Mild. Authorizing Provider: ALEX PINTO * Telephone Encounter - Kristal Rebolledo, [facility] - 08/05/2019 2:31 PM EDT Pending Prescriptions: Disp Refills HYDROcodone-acetaminophen 5-325 mg per ta*120 Tab0 Sig: Take 1 Tab by mouth every 6 hours as needed for Pain, Mild. * Telephone Encounter - Kristal Rebolledo [facility] - 08/05/2019 2:30 PM EDT I have reviewed the patients controlled substance dispensing history in the Prescription Drug Monitoring Program in compliance with the [facility] regulations before prescribing a controlled substance. PDMP checked on 08/05/2019. Patient requesting: Hydrocodone/apap 5/325 mg, filled 06/23/2019, for # 120 for a 30 day supply. Other recent controlled medication fills: none Last Office Visit: 07/09/2019 Next Office Visit: 02/01/2020 Scheduled Provider(s): Alex Pinto MD Date medication is due for refill: 07/22/2019 Toxicology results: Results for orders placed or [...] Results Review. Please approve if appropriate. Thanks, Kristal Rebolledo [facility] Clinical Pharmacist Telepharmacy [phone] 08/05/2019, 2:30 PM * Telephone Encounter - Tali Soto, clothespin machine operator - 08/04/2019 3:50 PM EDT Pending Prescriptions: Disp Refills HYDROcodone-acetaminophen 5-325 mg per ta*120 Tab0 Sig: Take 1 Tab by mouth every 6 hours as needed for Pain, Mild. Last Office Visit: 07/09/2019 Next Office Visit: 02/01/2020 Scheduled Provider(s): Alex Pinto MD If no future appointments scheduled, and last appointment is greater than a year ago, please schedule patient for a follow-up appointment Last date the medication was ordered: 06/23/2019 Pharmacy: [id number] [address] [facility] Is this request for a controlled [...] Lab Results Component Value Date/Time CREAT 1.0 07/09/2019 01:48 PM POTASSIUM 4.6 07/09/2019 01:48 PM TSH 0.42 07/27/2018 11:32 AM LDLCALC 57.40 03/22/2019 LDLCALC 95 07/27/2018 11:32 AM LDLDIRECT 99 01/12/2019 LDLDIRECT 97 07/27/2018 11:32 AM ALT 13 07/09/2019 01:48 PM HGBA1C 6.7 (A) 03/22/2019 HGBA1C 6.8 (H) 07/27/2018 11:32 AM documented in this encounter Plan of Treatment Upcoming Encounters Date Type Specialty Care Team Description 08/16/2019 Nutrition Services Gastroenterology Nita Enriquez, RDN [address] [place] [address] [phone] 10/14/2019 Office Visit Podiatry Region, [facility] [address] [place] [address] [phone] 02/01/2020 Office Visit Internal Medicine Alex Pinto MD [address] [place] [address] [phone] 06/06/2020 Imaging Radiology Health Maintenance Due Date [...] Documents on File Type Date Recorded Patient Access Consultant Expl anation Advanced Directive Advanced Directive Advanced Directive Advanced Directive Advanced Directive Advanced Directive Advanced Directive Advanced Directive Advanced Directive Advanced Directive Advanced Directive Advanced Directive Advanced Directive Advanced Directive Advanced Directive
--- OUTSIDE RECORDS SUMMARY | 2023-06-18 03:34 | External Medical Summary ---
Author Name Unknown Address [address] [place], [place] [address] Phone Organization K09:[facility] [address] [place] [address] Laboratory Report Ordering Provider Test Date Status JOSE A JOHNSON 07/09/2019 13:57:00 Final Observation Date Value Abnormality Reference Status Color Ur Auto 07/09/2019 14:24 YELLOW YEL Final Clarity, Urine 07/09/2019 14:24 CLEAR CLEAR Final Glucose Ur Strip.auto-mCnc 07/09/2019 14:24 NEGATIVE NEG Final Bilirubin, Urine 07/09/2019 14:24 NEGATIVE NEG Final Ketones Ur Strip.auto-nc 07/09/2019 14:24 NEGATIVE NEG Final Specific gravity, Urine 07/09/2019 14:24 1.015 1.003-1.030 Final Hemoglobin, qual. UA 07/09/2019 14:24 NEGATIVE NE G Final pH, Urine 07/09/2019 14:24 6.5 5.0-7.5 Fin al Prot Ur Strip.auto-mCnc 07/09/2019 14:24 TRACE Abnormal NEG Final Urobilinogen Ur Strip.auto-mCnc 07/09/2019 14:24 NORMAL NORM Final Nitrite, Urine 07/09/2019 14:24 NEGATIVE NEG Final Leukocyte Esterase, Urine 07/09/2019 14:24 NEGATIVE NEG Final Bacteria area UrnS HPF 07/09/2019 14:24 0-25 [id number] Final WBC, Urine 07/09/2019 14:24 0-2 U02 Fi nal RBC, Urine 07/09/2019 14:24 0-2 U02 Fi nal Squamous No./area UrnS Auto 07/09/2019 14:24 MANY Abnor mal NONE Final Performing Location [facility] [address] [place] [address]
--- OUTSIDE RECORDS SUMMARY | 2023-06-18 03:34 | External Medical Summary ---
Author Name Unknown Address [address] [place] [address] Phone Organization K09:[facility] [address] [facility] [place] [address] Laboratory Report Ordering Provider Test Date Status JOSE A JOHNSON 07/09/2019 13:48:00 Final Observation Date Value Abnormality Reference Status WBC, Total 07/09/2019 14:12 10.26 4.00-10.80 F inal RBC 07/09/2019 14:12 4.21 3.85-5.15 Fin al Hemoglobin 07/09/2019 14:12 11.7 Below low normal 12.0- 15.3 Final HCT 07/09/2019 14:12 37.4 36.0-45.2 Fin al MCV 07/09/2019 14:12 88.8 81.5-97.5 Fin al MCH 07/09/2019 14:12 27.8 27.0-34.0 Fin al MCHC 07/09/2019 14:12 31.3 Below low normal 32.0-3 6.0 Final RDW 07/09/2019 14:12 14.9 11.5-15.5 Fin al Platelets 07/09/2019 14:12 357 140-400 Fin al MPV 07/09/2019 14:12 9.4 6.6-11.1 Fin al Segs 07/09/2019 14:12 58.8 40-75 Fin al Lymphs % 07/09/2019 14:12 26.9 18-42 Fin al Monos 07/09/2019 14:12 11.1 Above high normal 1-11 Final Eosinophils 07/09/2019 14:12 2.9 0-6 F inal Basos 07/09/2019 14:12 0.3 0-2 Fin al Neutrophils Bld 07/09/2019 14:12 6.03 1.8-7.7 Final Lymphs, absolute 07/09/2019 14:12 2.76 1.0-4. 8 Final Monos, Abs 07/09/2019 14:12 1.14 Above high normal 0.0- 1.1 Final Eos, Abs 07/09/2019 14:12 0.30 0.0-0.7 Fin vijaya Thomas, Abs 07/09/2019 14:12 0.03 0.0-0.2 Fi nal Performing Location [facility] [address] [place] [address]
--- OUTSIDE RECORDS SUMMARY | 2023-06-18 03:34 | External Medical Summary | Summary of Care ---
Author Name Unknown Organization [place] [address] Care Team Providers Care Construction Safety Manager Name Role Phone Marcela Pinto MD Primary Care Provider [phone] Reason for Visit * Reason Comments Follow Up Emergency Department Follow-Up pre-op exam Medication Administration Flu and/or Pne umo Inj Encounter Details Date Type Department Care Team Description 07/09/2019 Office Visit General Internal Medicine [facility] [address] [place] [address] Marcela Pinto MD [address] [place] [address] [id number] Preoperative general physical examination*; COPD, moderate (HCC); [...] 05/21/2006 Metoprolol Tartrate 11/18/2006 Made pulse low [place] Oil-Black Currant-Vit E 07/10/2010 Verapamil 03/21/2004 Bupropion [...] 7.0% ([facility]) USE TO TEST BLOOD SUGAR [...] Active dilTIAZem HCl ER Beads 360 MG UL95Nnajdiiyvwk:HTN, goal below 130/80 TAKE 1 CAPSULE BY [...] Hypoxemia 10/08/2011 10/30/2015 Genetic Sleep Disorder Research Other*[id number] 07/25/2011 05/15/2016 Diverticulitis of colon 07/25/2011 01/06/20 [...] left eye cataract surgery on 08/03/19 at [facility] in [place] by Dr. Rayo. Has decreased vision Pt [...] neoplasm of adrenal gland D35.00 COPD, moderate ([facility]) J44.9 Allergic rhinitis J30.9 Nocturnal hypoxia G47.34 Sleep apnea, obstructive G47.33 Incisional hernia K43.2 ACEI/ARB contraindicated [id number] HTN, goal below 140/90 I10 Hyperlipidemia with target LDL less than 100 E78.5 Controlled substance agreement signed Z79.899 Type 2 diabetes mellitus with hemoglobin A1c goal of less than 7.5% ([facility]) E11.9 Hypercalcemia E83.52 Elevated plasma metanephrines R79.89 Irritable bowel syndrome with constipation K58.1 Ischemic colitis ([facility]) K55.9 Body mass index (BMI) of 40.0 to 44.9 in adult (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 No Have you had Guillain-[place] Syndrome (an illness that causes paralysis)? No [...] with Parent(s)/Patient: Yes documented in this encounter Plan of Treatment Upcoming Encounters Date Type Specialty Care Team Description 08/16/2019 Nutrition Services Gastroenterology Niat Enriquez RDN [address] [place] [address] [phone] 10/14/2019 Office Visit Podiatry [facility] [address] [place] [address] 02/01/2020 Office Visit Internal Medicine Marcela Pinto MD [address] [place] [address] [phone] 06/06/2020 Imaging Radiology Scheduled Orders Name Type Priority Associated Diagnoses Orde r Schedule URINE W/ MICROSCOPIC Lab STAT Polyuria Ordered: 07/09/2019 CULTURE QUANT URINE Lab Routine Polyuria Ordered: 07/09/2019 ALBUMIN / CREATININE RATIO, URINE Lab Routine Type 2 diabetes mellitus with hemoglobin A1c goal of less than 7.5% (HCC) Ordered: 07/09/2019 CBC/DIFF Lab Routine Diverticulitis large intestine w/o [...] Documents on File Type Date Recorded 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
--- OUTSIDE RECORDS SUMMARY | 2023-06-18 03:34 | External Medical Summary | Summary of Care ---
Author Name Unknown Organization [place] [address] Care Team Providers Care Steam Press Tender Name Role Phone Marcela Pinto MD Primary Care Provider [phone] Reason for Visit * Reason Comments Med Request Status Check Encounter Details Date Type Department Care Team Description 06/24/2019 Telephone General Internal Medicine [facility] [address] [place] [address] Marcela Pinto MD 200 [place] [address] Med Request; Status Check Allergies Active Allergy Reactions Severity Noted Date Comments Valsartan 07/10/2010 Enalapril 05/21/2006 Escitalopram Oxalate Nausea/vomiting 10/11/2009 Nauseated Iodinated Diagnostic Agents Nausea/vomiting 05/2010 IV Contrast Lisinopril 05/21/2006 Metoprolol Tartrate 11/18/2006 Made pulse low [place] Oil-Black Currant-Vit E 07/10/2010 Verapamil 03/21/2004 Bupropion [...] Active dilTIAZem HCl ER Beads 360 MG OV35Emgbisaabke:HTN , goal below 130/80 TAKE 1 CAPSULE [...] Hypoxemia 10/08/2011 10/30/2015 Genetic Sleep Disorder Research Other*[id number] 07/25/2011 05/15/2016 Diverticulitis of colon 07/25/2011 01/06/20 [...] guidelines. Please confirm and contact the pharmacy [address] once completed and faxed. Caller can be reached at [phone]. Thank You, Rody Fountain Glass Designer Refill Call Center 07/02/2019, 9:12 AM * Telephone Encounter - Renetta Gu LPN - 07/01/2019 11:25 AM EDT Will complete upon arrival. Thank you * Telephone Encounter - Vicenta Meek PHARM Tech - 07/01/2019 10:16 AM EDT Pharmacy is calling to request the billing form sent to fax [phone] be filled and returned because they are billing Medicare they need this form for Medicare's guide lines. Please fill and return this to fax [phone]. Thanks, Vicenta Meek [facility] [phone] 07/01/2019,10:17 AM * Telephone Encounter - Winnie Dolan PHARM Tech - 06/30/2019 10:34 AM EDT [facility] calling to request that provider sign over form. Caller can be reached at [phone] . Thank you, Winnie Dolan Glass Designer [facility] 06/30/2019, 10:34 AM * Telephone Encounter - [...] Resent. Thanks, Mckayla Dawson, Jamal Clinical Pharmacist [facility] [phone] 06/29/2019,12:35 PM * Telephone Encounter - Jaymie Mccoy CPhT - 06/29/2019 12:21 PM EDT Drs NPI must be on the rx and it cannot say "as needed" can say "as directed" please fix and send back for the nebulizer solution ThanksJaymie Glass Designer Pharmacy Refill Call Center 06/29/2019, 12:22 PM Electronically signed by Jaymie Mccoy [facility] at 06/29/2019 12:23 PM EDT * Addendum Note - Mckayla Dawson [facility] - 06/29/2019 10:31 AM EDT Addended by: MCKAYLA DAWSON on: 06/29/2019 10:31 AM Modules accepted: Orders * Telephone Encounter - Mckayla Dawson [facility] - 06/29/2019 10:30 AM EDT Ordered and faxed to pharmacy. Thanks, Mckayla Dawson, PharmD Clinical Pharmacist [facility] [phone] 06/29/2019,10:30 AM * Telephone Encounter - Uyen Steven [facility] - 06/29/2019 10:22 AM EDT Pharmacy checking status of medication Please fax to [phone] Pending Prescriptions: Disp Refills albuterol sulfate (PROVENTIL) [...] the medication was ordered: 07/17/2018 Pharmacy: [facility] #[id number] [id number] [facility] Is this request for [...] Alarcon CPhT - 06/28/2019 10:23 AM EDT [id number] is calling to check on status of albuterol sulfate NEB SOLN Rx. Please FAX RX TO [phone]. Pt can be reached at the following number(s): Patient Phone Numbers Thank you, Nita Alarcon Glass Designer Pharmacy Refill Call Center 06/28/2019, 10:23 AM * Addendum Note - Renetta Gu LPN - 06/27/2019 1:21 PM EDT Addended by: RENETTA GU on: 06/27/2019 01:21 PM Modules accepted: Orders * Telephone Encounter - Jaymie cMcoy CPhT - 06/25/2019 9:53 AM EDT Med 4 home checking status Thanks, Jaymie Mccoy Glass Designer Pharmacy Refill Call Center 06/25/2019, 9:53 AM * Telephone Encounter - Mary Freeman PHARM Tech - 06/24/2019 11:25 AM EDT [address] calling stating they had faxed request for albuterol sulfate (PROVENTIL) (2.5 MG/3ML) 0.083% nebulizer solution. Nathaly from [employer] requesting Rx faxed back to Nathaly can be reached at [phone] Thank you, Mary Masters Glass Designer [facility] 06/24/2019, 11:29 AM documented in this encounter Plan of Treatment Upcoming Encounters Date Type Specialty Care Team Description 07/08/2019 [facility] [address] [place] [address] 07/09/2019 Office Visit Internal Medicine Marcela Pinto MD [address] [facility] [place], [place] [address] [phone] 07/13/2019 Nutrition Services Gastroenterology Nita Enriquez RDN [address] [place] [address] [phone] 06/06/2020 Imaging Radiology Health Maintenance Due Date [...] Documents on File Type Date Recorded 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
--- OUTSIDE RECORDS SUMMARY | 2023-06-18 03:34 | External Medical Summary | Summary of Care ---
Author Name Unknown Organization [place] [address] Care Team Providers Care Hydrologic Modeler Name Role Phone Marcela Pinto MD Primary Care Provider [phone] Reason for Visit * Reason Comments Forms Request Encounter Details Date Type Department Care Team Description 07/12/2019 Telephone General Internal Medicine [facility] [address] [place] [address] Marcela Pinto MD [address] [place], [place] [id number] Forms Request Allergies Active Allergy Reactions Severity Noted Date Comments Valsartan 07/10/2010 Enalapril 05/21/2006 Escitalopram Oxalate Nausea/vomiting 10/11/2009 Nauseated Iodinated Diagnostic Agents Nausea/vomiting 05/2010 IV Contrast Lisinopril 05/21/2006 Metoprolol Tartrate 11/18/2006 Made pulse low [place] Oil-Black Currant-Vit E 07/10/2010 Verapamil 03/21/2004 Bupropion Hcl 10/30/2009 Makes pt sick in the stomach documented as of this encounter (statuses as of 07/13/2019) Medications Medication Sig Dispensed Refills Start Date [...] less than 7.0% ([facility]) USE TO TEST BLOOD SUGAR 4 [...] Active dilTIAZem HCl ER Beads 360 MG [id number]:HTN, goal below 130/80 TAKE 1 CAPSULE BY [...] as of this encounter (statuses as of 07/13/2019) Active Problems Problem Noted Date HECTOR (generalized [...] as of this encounter (statuses as of 07/13/2019) Resolved Problems Problem Noted Date Resolved Date [...] Hypoxemia 10/08/2011 10/30/2015 Genetic Sleep Disorder Research Other*[id number] 07/25/2011 05/15/2016 Diverticulitis of colon 07/25/2011 01/06/20 [...] as of this encounter (statuses as of 07/13/2019) Immunizations Name Administration Dates Next Due Hepatitis [...] Miscellaneous Notes * Telephone Encounter - Chantel Elizabeth OSA - 07/13/2019 11:53 AM EDT Please see below. * Telephone Encounter - Kimberly Stafford OSA - 07/12/2019 9:45 AM EDT Caller requesting the following information faxed: Name/Company of caller: [employer] Information requested to be faxed: Attachments did not come through with the pre op clearance form.She needs allergies, medications, history, etc. She states the cover said there were attachments but she did not receive. Fax number: [phone] Attention to Name/Company: [employer] Any additional information?: Patient's surgery is 08-03-2019. documented in this encounter Plan of Treatment Upcoming Encounters Date Type Specialty Care Team Description 08/16/2019 Nutrition Services Gastroenterology Nita Enriquez, RDN [address] [place] [address] [phone] 10/14/2019 Office Visit Podiatry Region, [facility] [address] [place] [address] [phone] 02/01/2020 Office Visit Internal Medicine Marcela Pinto MD 200 [place] [address] [phone] 06/06/2020 Imaging Radiology Health Maintenance Due Date [...] Documents on File Type Date Recorded 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
--- OUTSIDE RECORDS SUMMARY | 2023-06-18 03:34 | External Medical Summary | Summary of Care ---
Author Name Unknown Organization [place] [address] Care Team Providers Care Guideman Name Role Phone Alex Pinto MD Primary Care Provider [phone] Reason for Visit * Reason Comments eRx-Medication Refill Encounter Details Date Type Department Care Team Description 08/11/2019 Refill General Internal Medicine [facility] [address] [place] [address] Briseyda Barber MD [address] [facility] [place] [address] Hyperlipidemia with target LDL less than 100 Allergies Active Allergy Reactions Severity Noted Date Comments Valsartan 07/10/2010 Enalapril 05/21/2006 Escitalopram Oxalate Nausea/vomiting 10/11/2009 Nauseated Iodinated Diagnostic Agents Nausea/vomiting 05/2010 IV Contrast Lisinopril 05/21/2006 Metoprolol Tartrate 11/18/2006 Made pulse low [place] Oil-Black Currant-Vit E 07/10/2010 Verapamil 03/21/2004 Bupropion [...] Active dilTIAZem HCl ER Beads 360 MG [id number]:HTN , goal below 130/80 TAKE 1 CAPSULE [...] Pain, Mild. 120 Tab 0 9 Active atorvaSTATin (LIPITOR) 40 MG TabletIndications:H yperlipidemia with target LDL less than 100 TAKE 1 TABLET BY MOUTH EVERY DAY 90 Tab 1 9 Active atorvaSTATin (LIPITOR) 40 MG TabletIndications:H yperlipidemia with target LDL less than 100 Take 1 Tab by mouth daily. 90 Tab 3 8 08/11/20 19 Discontinued documented as of this encounter [...] Hypoxemia 10/08/2011 10/30/2015 Genetic Sleep Disorder Research Other*[id number] 07/25/2011 05/15/2016 Diverticulitis of colon 07/25/2011 01/06/20 [...] encounter Miscellaneous Notes * Telephone Encounter - Lesly Chong RPh - 08/12/2019 8:21 AM EDT Signed Prescriptions: Disp Refills atorvaSTATin (LIPITOR) 40 MG Tablet 90 Tab 1 Sig: TAKE 1 TABLET BY MOUTH EVERY DAYAuthorizing Provider: ALEX PINTO User: LESLY CHONG documented in this encounter Plan of Treatment Upcoming Encounters Date Type Specialty Care Team Description 08/16/2019 Nutrition Services Gastroenterology Nita Enriquez RDN [address] [facility] [place] [address] [phone] 10/14/2019 [facility] [address] [place] [address] [phone] 02/01/2020 Office Visit Internal Medicine Alex Pinto MD 200 [place] [address] [phone] 06/06/2020 Imaging Radiology Health Maintenance Due Date [...] Documents on File Type Date Recorded Patient Cmm Technician Expl anation Advanced Directive Advanced Directive Advanced Directive Advanced Directive Advanced Directive Advanced Directive Advanced Directive Advanced Directive Advanced Directive Advanced Directive Advanced Directive Advanced Directive Advanced Directive Advanced Directive Advanced Directive
--- OUTSIDE RECORDS SUMMARY | 2023-06-18 03:34 | External Medical Summary | Summary of Care ---
Author Name Unknown Organization [place] [address] Care Team Providers Care Sand Cutter Operator Name Role Phone Marcela Pinto MD Primary Care Provider [phone] Reason for Visit * Reason Comments Forms Request Encounter Details Date Type Department Care Team Description 07/12/2019 Telephone General Internal Medicine [facility] [address] [place] [address] Marcela Pinto MD 200 [place], [place] [id number] Forms Request Allergies Active Allergy Reactions Severity Noted Date Comments Valsartan 07/10/2010 Enalapril 05/21/2006 Escitalopram Oxalate Nausea/vomiting 10/11/2009 Nauseated Iodinated Diagnostic Agents Nausea/vomiting 05/2010 IV Contrast Lisinopril 05/21/2006 Metoprolol Tartrate 11/18/2006 Made pulse low [place] Oil-Black Currant-Vit E 07/10/2010 Verapamil 03/21/2004 Bupropion [...] - [place]) USE TO TEST BLOOD SUGAR 4 [...] Active dilTIAZem HCl ER Beads 360 MG [id number]:HTN, goal below 130/80 TAKE 1 CAPSULE BY [...] Hypoxemia 10/08/2011 10/30/2015 Genetic Sleep Disorder Research Other*[id number] 07/25/2011 05/15/2016 Diverticulitis of colon 07/25/2011 01/06/20 [...] Telephone Encounter - Renetta Gu LPN - 07/13/2019 2:54 PM EDT Faxed snap shot. Thank you * Telephone Encounter - Chantel Elizabeth OSA - 07/13/2019 11:53 AM EDT Please see below. * Telephone Encounter - Kimberly Stafford OSA - 07/12/2019 9:45 AM EDT Caller requesting the following information faxed: Name/Company of caller: [employer] Information requested to be faxed: Attachments did not come through with the pre op clearance form.She needs allergies, medications, history, etc. She states the cover said there were attachments but she did not receive. Fax number: [phone] Attention to Name/Company: [facility] Any additional information?: Patient's surgery is 08-03-2019. documented in this encounter Plan of Treatment Upcoming Encounters Date Type Specialty Care Team Description 08/16/2019 Nutrition Services Gastroenterology Nita Enriquez, IWONAN [address] [place] [address] [phone] 10/14/2019 Office Visit Podiatry Region, [facility] [address] [place] [address] [phone] 02/01/2020 Office Visit Internal Medicine [facility] MD 200 [facility] [address] [phone] 06/06/2020 Imaging Radiology Health Maintenance Due Date [...] on File Type Date Recorded Patient Tie Carrier Expl anation Advanced Directive Advanced Directive Advanced Directive Advanced Directive Advanced Directive Advanced Directive Advanced Directive Advanced Directive Advanced Directive Advanced Directive Advanced Directive Advanced Directive Advanced Directive Advanced Directive Advanced Directive
--- OUTSIDE RECORDS SUMMARY | 2023-06-18 03:35 | External Medical Summary | Summary of Care ---
Author Name Unknown Organization [place] [address] Care Team Providers Care Adjunct Professor Of Voice Name Role Phone Marcela Pinto MD Primary Care Provider [phone] Reason for Visit * Reason Comments Med Request Encounter Details Date Type Department Care Team Description 06/24/2019 Telephone General Internal Medicine [facility] [address] [facility] [place] [address] Marcela Pinto MD 200 [place], [place] [id number] Med Request Allergies Active Allergy Reactions Severity Noted Date Comments Valsartan 07/10/2010 Enalapril 05/21/2006 Escitalopram Oxalate Nausea/vomiting 10/11/2009 Nauseated Iodinated Diagnostic Agents Nausea/vomiting 05/2010 IV Contrast Lisinopril 05/21/2006 Metoprolol Tartrate 11/18/2006 Made pulse low [place] Oil-Black Currant-Vit E 07/10/2010 Verapamil 03/21/2004 Bupropion Hcl 10/30/2009 Makes pt sick in the stomach documented as of this encounter (statuses as of 06/29/2019) Medications Medication Sig Dispensed Refills Start Date [...] Active dilTIAZem HCl ER Beads 360 MG PZ49Shbmwbehiuv:HTN , goal below 130/80 TAKE 1 CAPSULE [...] as of this encounter (statuses as of 06/29/2019) Active Problems Problem Noted Date Body mass [...] as of this encounter (statuses as of 06/29/2019) Resolved Problems Problem Noted Date Resolved Date [...] Hypoxemia 10/08/2011 10/30/2015 Genetic Sleep Disorder Research Other*[id number] 07/25/2011 05/15/2016 Diverticulitis of colon 07/25/2011 01/06/20 [...] as of this encounter (statuses as of 06/29/2019) Immunizations Name Administration Dates Next Due Hepatitis [...] encounter Miscellaneous Notes * Addendum Note - Mckayla Dawson [facility] - 06/29/2019 12:35 PM EDT Addended by: MCKAYLA DAWSON on: 06/29/2019 12:35 PM Modules accepted: Orders * Telephone Encounter - Mckayla Dawson RP - 06/29/2019 12:35 PM EDT Resent. Thanks, Mckayla Dawson, PharmD Clinical Pharmacist [facility] [phone] 06/29/2019,12:35 PM * Telephone Encounter - Jaymie Mccoy CPhT - 06/29/2019 12:21 PM EDT Drs NPI must be on the rx and it cannot say "as needed" can say "as directed" please fix and send back for the nebulizer solution Thanks, Jaymie Mccoy Net Applications Developer Pharmacy Refill Call Center 06/29/2019, 12:22 PM * Addendum Note - Mckayla Dawson [facility] - 06/29/2019 10:31 AM EDT Addended by: MCKAYLA DAWSON on: 06/29/2019 10:31 AM Modules accepted: Orders * Telephone Encounter - Mckayla Dawson [facility] - 06/29/2019 10:30 AM EDT Ordered and faxed to pharmacy. Thanks, Mckayla Dawson, PharmD Clinical Pharmacist [facility] [phone] 06/29/2019,10:30 AM * Telephone Encounter - Uyen Steven [facility] - 06/29/2019 10:22 AM EDT Pharmacy checking status of medication Please fax to [phone] Pending Prescriptions: Disp Refills albuterol sulfate (PROVENTIL) [...] the medication was ordered: 07/17/2018 Pharmacy: [facility] #[id number] [id number] [facility] Is this request for [...] Alarcon CPhT - 06/28/2019 10:23 AM EDT [address] is calling to check on status of albuterol sulfate NEB SOLN Rx. Please FAX RX TO [phone]. Pt can be reached at the following number(s): Patient Phone Numbers Thank you, Nita Alarcon Net Applications Developer Pharmacy Refill Call Center 06/28/2019, 10:23 AM * Addendum Note - Renetta Gu LPN - 06/27/2019 1:21 PM EDT Addended by: RENETTA GU on: 06/27/2019 01:21 PM Modules accepted: Orders * Telephone Encounter - Jaymie Mccoy CPhT - 06/25/2019 9:53 AM EDT Med home checking status Thanks, Jaymie Mccoy Net Applications Developer Pharmacy Refill Call Center 06/25/2019, 9:53 AM * Telephone Encounter - Mary Freeman PHARM Tech - 06/24/2019 11:25 AM EDT [address] calling stating they had faxed request for albuterol sulfate (PROVENTIL) (2.5 MG/3ML) 0.083% nebulizer solution. Nathaly from [address] requesting Rx faxed back to Nathaly can be reached at [phone] Thank you, Mary Masters Net Applications Developer [facility] 06/24/2019, 11:29 AM documented in this encounter Plan of Treatment Upcoming Encounters Date Type Specialty Care Team Description 07/08/2019 [facility] [address] [place] [address] 07/09/2019 Office Visit Internal Medicine Marcela Pinto MD 200 [place] [address] [phone] 07/13/2019 Nutrition Services Gastroenterology Nita Enriquez RDN [address] [place] [address] 06/06/2020 Imaging Radiology Health Maintenance Due Date [...] Documents on File Type Date Recorded 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
--- OUTSIDE RECORDS SUMMARY | 2023-06-18 03:35 | External Medical Summary | Summary of Care ---
Author Name Unknown Organization [facility] [place] [address] Care Team Providers Care Import Coordinator Name Role Phone Marcela Pinto MD Primary Care Provider [phone] Reason for Visit * Reason Comments Med Request Encounter Details Date Type Department Care Team Description 06/24/2019 Telephone General Internal Medicine [facility] [address] [place] [address] Marcela Pinto MD 200 [place], [place] [id number] Med Request Allergies Active Allergy Reactions Severity Noted Date Comments Valsartan 07/10/2010 Enalapril 05/21/2006 Escitalopram Oxalate Nausea/vomiting 10/11/2009 Nauseated Iodinated Diagnostic Agents Nausea/vomiting 05/2010 IV Contrast Lisinopril 05/21/2006 Metoprolol Tartrate 11/18/2006 Made pulse low [place] Oil-Black Currant-Vit E 07/10/2010 Verapamil 03/21/2004 Bupropion [...] Active dilTIAZem HCl ER Beads 360 MG [id number]:HTN , goal below 130/80 TAKE 1 CAPSULE [...] 225 mL 1 8 06/27/20 19 Discontinued documented as of this encounter [...] Hypoxemia 10/08/2011 10/30/2015 Genetic Sleep Disorder Research Other*[id number] 07/25/2011 05/15/2016 Diverticulitis of colon 07/25/2011 01/06/20 [...] Notes * Addendum Note - Mckayla Dawson RPh - 06/29/2019 10:31 AM EDT Addended by: MCKAYLA DAWSON on: 06/29/2019 10:31 AM Modules accepted: Orders * Telephone Encounter - Mckayla Dawson RPh - 06/29/2019 10:30 AM EDT Ordered and faxed to pharmacy. Thanks, Mckayla Dawson, PharmD Clinical Pharmacist [facility] [phone] 06/29/2019,10:30 AM * Telephone Encounter - Uyen Steven CPhT - 06/29/2019 10:22 AM EDT Pharmacy checking status of medication Please fax to [phone] Pending Prescriptions: Disp Refills albuterol sulfate (PROVENTIL) [...] date the medication was ordered: 07/17/2018 Pharmacy: [id number] [address] [facility] Is this request for [...] Alarcon CPhT - 06/28/2019 10:23 AM EDT [address] is calling to check on status of albuterol sulfate NEB SOLN Rx. Please FAX RX TO [phone]. Pt can be reached at the following number(s): Patient Phone Numbers Thank you, Nita Alarcon Cloud Services Architect Pharmacy Refill Call Center 06/28/2019, 10:23 AM * Addendum Note - Renetta Gu LPN - 06/27/2019 1:21 PM EDT Addended by: RENETTA GU on: 06/27/2019 01:21 PM Modules accepted: Orders * Telephone Encounter - Jaymie Mccoy CPhT - 06/25/2019 9:53 AM EDT Med 4 home checking status Thanks, Jaymie Mccoy Cloud Services Architect Pharmacy Refill Call Center 06/25/2019, 9:53 AM * Telephone Encounter - Mary Freeman PHARM Tech - 06/24/2019 11:25 AM EDT [address] calling stating they had faxed request for albuterol sulfate (PROVENTIL) (2.5 MG/3ML) 0.083% nebulizer solution. Nathaly from [address] requesting Rx faxed back to Nathaly can be reached at [phone] Thank you, Mary Masters Cloud Services Architect [facility] 06/24/2019, 11:29 AM documented in this encounter Plan of Treatment Upcoming Encounters Date Type Specialty Care Team Description 07/08/2019 Office Visit Podiatry Region, [facility] [address] [place] [address] [phone] 07/09/2019 Office Visit Internal Medicine Marcela Pinto MD 200 [facility] [place] [address] [phone] 07/13/2019 Nutrition Services Gastroenterology Nita Enriquez, AKIKO [address] [place] [address] [phone] 06/06/2020 Imaging Radiology Health Maintenance Due Date [...] on File Type Date Recorded Patient Director Case Management Expl anation Advanced Directive Advanced Directive Advanced Directive Advanced Directive Advanced Directive Advanced Directive Advanced Directive Advanced Directive Advanced Directive Advanced Directive Advanced Directive Advanced Directive Advanced Directive Advanced Directive Advanced Directive
--- OUTSIDE RECORDS SUMMARY | 2023-06-18 03:35 | External Medical Summary | Summary of Care ---
Author Name Unknown Organization [place] [address] Care Team Providers Care Brim Curler Name Role Phone Marcela Pinto MD Primary Care Provider [phone] Reason for Visit * Reason Comments Med Request Encounter Details Date Type Department Care Team Description 06/24/2019 Telephone General Internal Medicine [facility] [address] [place] [address] Marcela Pinto MD 200 [place], [place] [id number] Med Request Allergies Active Allergy Reactions Severity Noted Date Comments Valsartan 07/10/2010 Enalapril 05/21/2006 Escitalopram Oxalate Nausea/vomiting 10/11/2009 Nauseated Iodinated Diagnostic Agents Nausea/vomiting 05/2010 IV Contrast Lisinopril 05/21/2006 Metoprolol Tartrate 11/18/2006 Made pulse low [place] Oil-Black Currant-Vit E 07/10/2010 Verapamil 03/21/2004 Bupropion [...] Active dilTIAZem HCl ER Beads 360 MG LD73Tdiikcyceah:HTN , goal below 130/80 TAKE 1 CAPSULE [...] Hypoxemia 10/08/2011 10/30/2015 Genetic Sleep Disorder Research Other*[id number] 07/25/2011 05/15/2016 Diverticulitis of colon 07/25/2011 01/06/20 [...] encounter Miscellaneous Notes * Telephone Encounter - Jaymie Mccoy CPhT - 06/29/2019 12:21 PM EDT Drs NPI must be on the rx and it cannot say "as needed" can say "as directed" please fix and send back for the nebulizer solution ThanksJaymie Livestock Speculator Pharmacy Refill Call Center 06/29/2019, 12:22 PM * Addendum Note - Mckayla Dawson RP - 06/29/2019 10:31 AM EDT Addended by: MCKAYLA DAWSON on: 06/29/2019 10:31 AM Modules accepted: Orders * Telephone Encounter - Mckayla Dawson RP - 06/29/2019 10:30 AM EDT Ordered and faxed to pharmacy. Thanks, Mckayla Dawson, PharmD Clinical Pharmacist Telepharm[facility] [phone] 06/29/2019,10:30 AM * Telephone Encounter - Uyen Steven CPhT - 06/29/2019 10:22 AM EDT Pharmacy checking status of medication Please fax to [phone] Pending Prescriptions: Disp Refills albuterol sulfate (PROVENTIL) [...] the medication was ordered: 07/17/2018 Pharmacy: [id number] [address] [facility] Is this request [...] Alarcon CPhT - 06/28/2019 10:23 AM EDT [address] is calling to check on status of albuterol sulfate NEB SOLN Rx. Please FAX RX TO [phone]. Pt can be reached at the following number(s): Patient Phone Numbers Thank you, Nita Alarcon Livestock Speculator Pharmacy Refill Call Center 06/28/2019, 10:23 AM * Addendum Note - Renetta Gu LPN - 06/27/2019 1:21 PM EDT Addended by: RENETTA GU on: 06/27/2019 01:21 PM Modules accepted: Orders * Telephone Encounter - Jaymie Mccoy CPhT - 06/25/2019 9:53 AM EDT Med home checking status ThanksJaymie Livestock Speculator Pharmacy Refill Call Center 06/25/2019, 9:53 AM * Telephone Encounter - Mary Freeman PHARM Tech - 06/24/2019 11:25 AM EDT [address] calling stating they had faxed request for albuterol sulfate (PROVENTIL) (2.5 MG/3ML) 0.083% nebulizer solution. Nathaly from [address] requesting Rx faxed back to Nathaly can be reached at [phone] Thank you, Mary Masters Livestock Speculator [facility] 06/24/2019, 11:29 AM documented in this encounter Plan of Treatment Upcoming Encounters Date Type Specialty Care Team Description 07/08/2019 Office Visit Podiatry Region, [facility] [address] [place] [address] 07/09/2019 Office Visit Internal Medicine Marcela Pinto MD 200 [facility] [place] [address] [phone] 07/13/2019 Nutrition Services Gastroenterology Nita Enriquez, RDN 310 [...] Documents on File Type Date Recorded Patient Memorial Designer Expl anation Advanced Directive Advanced Directive Advanced Directive Advanced Directive Advanced Directive Advanced Directive Advanced Directive Advanced Directive Advanced Directive Advanced Directive Advanced Directive Advanced Directive Advanced Directive Advanced Directive Advanced Directive
--- OUTSIDE RECORDS SUMMARY | 2023-06-18 03:35 | External Medical Summary | Summary of Care ---
Author Name Unknown Organization [place] [address] Care Team Providers Care Order Entry Representative Name Role Phone Marcela Pinto MD Primary Care Provider [phone] Reason for Visit * Reason Comments Med Request Encounter Details Date Type Department Care Team Description 06/24/2019 Telephone General Internal Medicine [facility] [address] [place] [address] Marcela Pinto MD 200 [place], [place] [id number] Med Request Allergies Active Allergy Reactions Severity Noted Date Comments Valsartan 07/10/2010 Enalapril 05/21/2006 Escitalopram Oxalate Nausea/vomiting 10/11/2009 Nauseated Iodinated Diagnostic Agents Nausea/vomiting 05/2010 IV Contrast Lisinopril 05/21/2006 Metoprolol Tartrate 11/18/2006 Made pulse low [place] Oil-Black Currant-Vit E 07/10/2010 Verapamil 03/21/2004 Bupropion Hcl 10/30/2009 Makes pt sick in the stomach documented as of this encounter (statuses as of 06/30/2019) Medications Medication Sig Dispensed Refills Start Date [...] [facility]) USE TO TEST BLOOD SUGAR 4 TIMES [...] Active dilTIAZem HCl ER Beads 360 MG DA12Hcgjecwiwqh:HTN , goal below 130/80 TAKE 1 CAPSULE [...] as of this encounter (statuses as of 06/30/2019) Active Problems Problem Noted Date Body mass [...] as of this encounter (statuses as of 06/30/2019) Resolved Problems Problem Noted Date Resolved Date [...] Hypoxemia 10/08/2011 10/30/2015 Genetic Sleep Disorder Research Other*[id number] 07/25/2011 05/15/2016 Diverticulitis of colon 07/25/2011 01/06/20 [...] as of this encounter (statuses as of 06/30/2019) Immunizations Name Administration Dates Next Due Hepatitis [...] encounter Miscellaneous Notes * Telephone Encounter - Winnie Dolan PHARM Tech - 06/30/2019 10:34 AM EDT Med 4 home calling to request that provider sign over form. Caller can be reached at [phone] . Thank you, Winnie Dolan Behavioral Assistant [employer] 06/30/2019, 10:34 AM * Telephone Encounter - Renetta Gu LPN - 06/30/2019 8:54 AM EDT Is actually showing that went by phone order. Prescribed medication called to confirmed pharmacy. Thank you * Telephone Encounter - Marcela Pinto MD - 06/29/2019 4:10 PM EDT Seems like taken care of. Can we confirm with pharmacy? thanks. * Addendum Note - Mckayla Dawson [facility] - 06/29/2019 12:35 PM EDT Addended by: MCKAYLA DAWSON on: 06/29/2019 12:35 PM Modules accepted: Orders * Telephone Encounter - Mckayla Dawson [facility] - 06/29/2019 12:35 PM EDT Resent. Thanks, Mckayla Dawson PharmD Clinical Pharmacist [facility] [phone] 06/29/2019,12:35 PM * Telephone Encounter - Jaymie Mccoy [facility] - 06/29/2019 12:21 PM EDT Drs NPI must be on the rx and it cannot say "as needed" can say "as directed" please fix and send back for the nebulizer solution Jaymie Jaimes Behavioral Assistant Pharmacy Refill Call Center 06/29/2019, 12:22 PM * Addendum Note - Mckayla Dawson [facility] - 06/29/2019 10:31 AM EDT Addended by: MCKAYLA DAWSON on: 06/29/2019 10:31 AM Modules accepted: Orders * Telephone Encounter - Mckayla Dawson [facility] - 06/29/2019 10:30 AM EDT Ordered and faxed to pharmacy. Fiona, Mckayla Dawson PharmD Clinical Pharmacist [facility] [phone] 06/29/2019,10:30 AM * Telephone Encounter - Uyen Steven [facility] - 06/29/2019 10:22 AM EDT Pharmacy checking status of medication Please fax to [phone] Pending Prescriptions: Disp Refills albuterol sulfate (PROVENTIL) [...] the medication was ordered: 07/17/2018 Pharmacy: [id number] [address] [facility] Is [...] 11:32 AM * Addendum Note - Nita Alracon CPhT - 06/28/2019 10:24 AM EDT Addended by: NITA ALARCON on: 06/28/2019 10:24 AM Modules accepted: Orders * Telephone Encounter - Nita Alarcon CPhT - 06/28/2019 10:23 AM EDT [address] is calling to check on status of albuterol sulfate NEB SOLN Rx. Please FAX RX TO [phone]. Pt can be reached at the following number(s): Patient Phone Numbers Thank you, Nita Alarcon Behavioral Assistant Pharmacy Refill Call Center 06/28/2019, 10:23 AM * Addendum Note - Renetta Gu LPN - 06/27/2019 1:21 PM EDT Addended by: RENETTA GU on: 06/27/2019 01:21 PM Modules accepted: Orders * Telephone Encounter - Jaymie Mccoy CPhT - 06/25/2019 9:53 AM EDT Med 4 home checking status Thanks, Jaymie Mccoy Behavioral Assistant Pharmacy Refill Call Center 06/25/2019, 9:53 AM * Telephone Encounter - Mary Freeman, associate java developer - 06/24/2019 11:25 AM EDT [address] calling stating they had faxed request for albuterol sulfate (PROVENTIL) (2.5 MG/3ML) 0.083% nebulizer solution. Nathaly from [address] requesting Rx faxed back to Nathaly can be reached at [phone] Thank you, Mary Masters Behavioral Assistant [employer] [facility] 06/24/2019, 11:29 AM documented in this encounter Plan of Treatment Upcoming Encounters Date Type Specialty Care Team Description 07/08/2019 Office Visit Podiatry Region, [facility] [address] [place] [id number] 07/09/2019 Office Visit Internal Medicine Marcela Pinto MD 200 [place] [address] [phone] 07/13/2019 Nutrition Services Gastroenterology Nita Enriquez RDN [address] [place] [address] [phone] 06/06/2020 Imaging Radiology Health Maintenance Due Date [...] Documents on File Type Date Recorded Patient Commis Chef Expl anation Advanced Directive Advanced Directive Advanced Directive Advanced Directive Advanced Directive Advanced Directive Advanced Directive Advanced Directive Advanced Directive Advanced Directive Advanced Directive Advanced Directive Advanced Directive Advanced Directive Advanced Directive
--- OUTSIDE RECORDS SUMMARY | 2023-06-18 03:35 | External Medical Summary | Summary of Care ---
Author Name Unknown Organization [place] [address] Care Team Providers Care Water Jet Operator Name Role Phone Marcela Pinto MD Primary Care Provider [phone] Reason for Visit * Reason Comments Med Request Encounter Details Date Type Department Care Team Description 06/24/2019 Telephone General Internal Medicine [facility] [address] [place] [address] Marcela Pinto MD 200 [place], [place] [id number] Med Request Allergies Active Allergy Reactions Severity Noted Date Comments Valsartan 07/10/2010 Enalapril 05/21/2006 Escitalopram Oxalate Nausea/vomiting 10/11/2009 Nauseated Iodinated Diagnostic Agents Nausea/vomiting 05/2010 IV Contrast Lisinopril 05/21/2006 Metoprolol Tartrate 11/18/2006 Made pulse low [place] Oil-Black Currant-Vit E 07/10/2010 Verapamil 03/21/2004 Bupropion Hcl 10/30/2009 Makes pt sick in the stomach documented as of this encounter (statuses as of 07/01/2019) Medications Medication Sig Dispensed Refills Start Date [...] Active dilTIAZem HCl ER Beads 360 MG [id number]:HTN , goal below 130/80 TAKE 1 CAPSULE [...] as of this encounter (statuses as of 07/01/2019) Active Problems Problem Noted Date Body mass [...] as of this encounter (statuses as of 07/01/2019) Resolved Problems Problem Noted Date Resolved Date [...] Hypoxemia 10/08/2011 10/30/2015 Genetic Sleep Disorder Research Other*[id number] 07/25/2011 05/15/2016 Diverticulitis of colon 07/25/2011 01/06/20 [...] as of this encounter (statuses as of 07/01/2019) Immunizations Name Administration Dates Next Due Hepatitis [...] encounter Miscellaneous Notes * Telephone Encounter - Vicenta Meek PHARM Tech - 07/01/2019 10:16 AM EDT Pharmacy is calling to request the billing form sent to fax [phone] be filled and returned because they are billing Medicare they need this form for Medicare's guide lines. Please fill and return this to fax [phone]. Thanks, Vicenta Meek [facility] [phone] 07/01/2019,10:17 AM * Telephone Encounter - Winnie Dolan PHARM Tech - 06/30/2019 10:34 AM EDT Med 4 home calling to request that provider sign over form. Caller can be reached at [phone] . Thank you, Winnie Dolan Electrical Continuity Tester [facility] 06/30/2019, 10:34 AM * Telephone Encounter - Renetta Gu LPN - 06/30/2019 8:54 AM EDT Is actually showing that went by phone order. Prescribed medication called to confirmed pharmacy. Thank you * Telephone Encounter - Marcela Pinto MD - 06/29/2019 4:10 PM EDT Seems like taken care of. Can we confirm with pharmacy? thanks. * Addendum Note - Mckayla Dawson [facility] - 06/29/2019 12:35 PM EDT Addended by: MCKAYLA DAWSON on: 06/29/2019 12:35 PM Modules accepted: Orders * Telephone Encounter - Mckayla Dawson [facility] - 06/29/2019 12:35 PM EDT Resent. Thanks, Mckayla Dawson, Jamal Clinical Pharmacist [facility] [phone] 06/29/2019,12:35 PM * Telephone Encounter - Jaymie Mccoy CPhT - 06/29/2019 12:21 PM EDT Drs NPI must be on the rx and it cannot say "as needed" can say "as directed" please fix and send back for the nebulizer solution Thanks, Jaymie Mccoy Electrical Continuity Tester Pharmacy Refill Call Center 06/29/2019, 12:22 PM * Addendum Note - Mckayla Dawson [facility] - 06/29/2019 10:31 AM EDT Addended by: MCKAYLA DAWSON on: 06/29/2019 10:31 AM Modules accepted: Orders * Telephone Encounter - Mckayla Dawson [facility] - 06/29/2019 10:30 AM EDT Ordered and faxed to pharmacy. Thanks, Mckayla Dawson, PharmD Clinical Pharmacist [facility] [phone] 06/29/2019,10:30 AM * Telephone Encounter - Uyen Steven [facility] - 06/29/2019 10:22 AM EDT Pharmacy checking status of medication Please fax to [phone] Pending Prescriptions: Disp Refills albuterol sulfate (PROVENTIL) [...] the medication was ordered: 07/17/2018 Pharmacy: [id number] [id number] [facility] Is this request for [...] Alarcon CPhT - 06/28/2019 10:23 AM EDT [email or web address] is calling to check on status of albuterol sulfate NEB SOLN Rx. Please FAX RX TO [phone]. Pt can be reached at the following number(s): Patient Phone Numbers Thank you, Nita Alarcon Electrical Continuity Tester Pharmacy Refill Call Center 06/28/2019, 10:23 AM * Addendum Note - Renetta Gu LPN - 06/27/2019 1:21 PM EDT Addended by: RENETTA GU on: 06/27/2019 01:21 PM Modules accepted: Orders * Telephone Encounter - Jaymie Mccoy CPhT - 06/25/2019 9:53 AM EDT Med 4 home checking status ThanksJaymie Electrical Continuity Tester Pharmacy Refill Call Center 06/25/2019, 9:53 AM * Telephone Encounter - Mary Freeman PHARM Tech - 06/24/2019 11:25 AM EDT [address] calling stating they had faxed request for albuterol sulfate (PROVENTIL) (2.5 MG/3ML) 0.083% nebulizer solution. Nathaly from [address] requesting Rx faxed back to Nathaly can be reached at [phone] Thank you, Mary Masters Electrical Continuity Tester [facility] 06/24/2019, 11:29 AM documented in this encounter Plan of Treatment Upcoming Encounters Date Type Specialty Care Team Description 07/08/2019 Office Visit Podiatry Region, [facility] [address] [place] [address] 07/09/2019 Office Visit Internal Medicine Marcela Pinto MD 200 [place] [address] [phone] 07/13/2019 Nutrition Services Gastroenterology Nita Enriquez RDN [address] [place] [id number] 06/06/2020 Imaging Radiology Health Maintenance Due Date [...] on File Type Date Recorded Patient Security Flex Utility Officer Expl anation Advanced Directive Advanced Directive Advanced Directive Advanced Directive Advanced Directive Advanced Directive Advanced Directive Advanced Directive Advanced Directive Advanced Directive Advanced Directive Advanced Directive Advanced Directive Advanced Directive Advanced Directive
--- OUTSIDE RECORDS SUMMARY | 2023-06-18 03:35 | External Medical Summary | Summary of Care ---
Author Name Unknown Organization [place] [address] Care Team Providers Care Chief Clerk Name Role Phone Marcela Pinto MD Primary Care Provider [phone] Reason for Visit * Reason Comments Med Request Encounter Details Date Type Department Care Team Description 06/24/2019 Telephone General Internal Medicine [facility] [address] [address] [place] [address] Marcela Pinto MD 200 [place], [place] [id number] Med Request Allergies Active Allergy Reactions Severity Noted Date Comments Valsartan 07/10/2010 Enalapril 05/21/2006 Escitalopram Oxalate Nausea/vomiting 10/11/2009 Nauseated Iodinated Diagnostic Agents Nausea/vomiting 05/2010 IV Contrast Lisinopril 05/21/2006 Metoprolol Tartrate 11/18/2006 Made pulse low [place] [...] Active dilTIAZem HCl ER Beads 360 MG OP37Wpudzbwoalz:HTN , goal below 130/80 TAKE 1 CAPSULE [...] Hypoxemia 10/08/2011 10/30/2015 Genetic Sleep Disorder Research Other*[id number] 07/25/2011 05/15/2016 Diverticulitis of colon 07/25/2011 01/06/20 [...] thanks. * Addendum Note - Mckayla Dawson RP - 06/29/2019 12:35 PM EDT Addended by: MCKAYLA DAWSON on: 06/29/2019 12:35 PM Modules accepted: Orders * Telephone Encounter - Mckayla Dawson [facility] - 06/29/2019 12:35 PM EDT Resent. Mckayla Jaimes PharmD Clinical Pharmacist [facility] [phone] 06/29/2019,12:35 PM * Telephone Encounter - Jaymie Mccoy CPhT - 06/29/2019 12:21 PM EDT Drs NPI must be on the rx and it cannot say "as needed" can say "as directed" please fix and send back for the nebulizer solution Jaymie Jaimes Law Enforcement Director Pharmacy Refill Call Center 06/29/2019, 12:22 PM * Addendum Note - Mckayla Dawson [facility] - 06/29/2019 10:31 AM EDT Addended by: MCKAYLA DAWSON on: 06/29/2019 10:31 AM Modules accepted: Orders * Telephone Encounter - Mckayla Dawson [facility] - 06/29/2019 10:30 AM EDT Ordered and faxed to pharmacy. Mckayla Jaimes PharmD Clinical Pharmacist [facility] [phone] 06/29/2019,10:30 AM * Telephone Encounter - Uyen Steven [facility] - 06/29/2019 10:22 AM EDT Pharmacy checking status of medication Please fax to [phone] Pending Prescriptions: Disp Refills albuterol sulfate (PROVENTIL) [...] medication was ordered: 07/17/2018 Pharmacy: [id number] [id number] [facility] Is this request [...] Alarcon CPhT - 06/28/2019 10:23 AM EDT [address] is calling to check on status of albuterol sulfate NEB SOLN Rx. Please FAX RX TO [phone]. Pt can be reached at the following number(s): Patient Phone Numbers Thank you, Nita Alarcon Law Enforcement Director Pharmacy Refill Call Center 06/28/2019, 10:23 AM * Addendum Note - Renetta Gu LPN - 06/27/2019 1:21 PM EDT Addended by: RENETTA UG on: 06/27/2019 01:21 PM Modules accepted: Orders * Telephone Encounter - Jaymie Mccoy CPhT - 06/25/2019 9:53 AM EDT Med 4 home checking status Thanks, Jaymie Mccoy Law Enforcement Director Pharmacy Refill Call Center 06/25/2019, 9:53 AM * Telephone Encounter - Mary Freeman PHARM Tech - 06/24/2019 11:25 AM EDT [address] calling stating they had faxed request for albuterol sulfate (PROVENTIL) (2.5 MG/3ML) 0.083% nebulizer solution. Nathaly from [address] requesting Rx faxed back to Nathaly can be reached at [phone] Thank you, Mary Masters Law Enforcement Director [facility] 06/24/2019, 11:29 AM documented in this encounter Plan of Treatment Upcoming Encounters Date Type Specialty Care Team Description 07/08/2019 Office Visit Podiatry Region, [address] [place] [address] [place] [address] 07/09/2019 Office Visit Internal Medicine Marcela Pinto MD 200 [facility] [place] [address] [phone] 07/13/2019 Nutrition Services Gastroenterology Nita Enriquez, RDN [address] [place] [address] [place] [address] [phone] 06/06/2020 Imaging Radiology Health Maintenance Due Date [...] Documents on File Type Date Recorded Patient Sweatband Perforator Expl anation Advanced Directive Advanced Directive Advanced Directive Advanced Directive Advanced Directive Advanced Directive Advanced Directive Advanced Directive Advanced Directive Advanced Directive Advanced Directive Advanced Directive Advanced Directive Advanced Directive Advanced Directive
--- OUTSIDE RECORDS SUMMARY | 2023-06-18 03:35 | External Medical Summary | Summary of Care ---
Author Name Unknown Organization [place] [address] Care Team Providers Care Divorce Attorney Name Role Phone Marcela Pinto MD Primary Care Provider [phone] Encounter Details Date Type Department Care Team Description 06/23/2019 Scan Encounter Unspecified Department <No scans attached> Allergies Active Allergy Reactions Severity Noted Date Comments Valsartan 07/10/2010 Enalapril 05/21/2006 Escitalopram Oxalate Nausea/vomiting 10/11/2009 Nauseated Iodinated Diagnostic Agents Nausea/vomiting 05/2010 IV Contrast Lisinopril 05/21/2006 Metoprolol Tartrate 11/18/2006 Made pulse low [place] Oil-Black Currant-Vit E 07/10/2010 Verapamil 03/21/2004 Bupropion Hcl 10/30/2009 Makes pt sick in the stomach documented as of this encounter (statuses as of 06/28/2019) Medications Medication Sig Dispensed Refills Start Date [...] FOR EDEMA 30 Tab 11 05/25/2018 Active albuterol sulfate (PROVENTIL) (2.5 MG/3ML) 0.083% nebulizer solutionIndications: Asthma with severity to be determined,COPD, moderate ([facility]) USE ONE NEBULIZER TREATMENT TWICE A DAY NEEDED FOR WORSENING ASTHMA. J45.909, J44.9 225 mL 1 07/17/2018 Active atorvaSTATin (LIPITOR) 40 MG TabletIndications:Hy perlipidemia [...] Active dilTIAZem HCl ER Beads 360 MG EV55Wiqeeuhkkvp:HTN, goal below 130/80 TAKE 1 CAPSULE BY MOUTH EVERY DAY 90 Cap 1 05/27/2019 Active HYDROcodone-acetamin ophen 5-325 mg per tab 5-325 MG per tabletIndications:Ge neralized osteoarthritis Take 1 Tab by mouth every 6 hours as needed for Pain, Mild. 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 07/25/2011 05/15/2016 Diverticulitis of colon 07/25/2011 01/06/20 [...] as of this encounter (statuses as of 06/28/2019) Immunizations Name Administration Dates Next Due Hepatitis [...] Encounters Date Type Specialty Care Team Description 06/28/2019 Nurse Only Ancillary Heather Nurse [facility] [address] [place] [address] [phone] 07/08/2019 Office Visit Podiatry Region, [facility] [address] [place] [address] [facility] [id number] 07/09/2019 Office Visit Internal Medicine Marcela Pinto MD [address] [place] [address] [phone] 07/13/2019 Nutrition Services Gastroenterology Nita Enriquez, RDN [address] [place] [address] [place] [id number] 06/06/2020 Imaging Radiology Health Maintenance Due Date [...] Documents on File Type Date Recorded Patient Hem Marker Expl anation Advanced Directive Advanced Directive Advanced Directive Advanced Directive Advanced Directive Advanced Directive Advanced Directive Advanced Directive Advanced Directive Advanced Directive Advanced Directive Advanced Directive Advanced Directive Advanced Directive Advanced Directive
--- OUTSIDE RECORDS SUMMARY | 2023-06-18 03:35 | External Medical Summary | Summary of Care ---
Author Name Unknown Organization [place] [address] Care Team Providers Care Gettering Filament Machine Operator Name Role Phone Marcela Pinto MD Primary Care Provider Reason for Visit * Reason Comments Med Request Encounter Details Date Type Department Care Team Description 06/24/2019 Telephone General Internal Medicine [facility] [address] [place] [address] Marcela Pinto MD 200 [place], [place] [id number] Med Request Allergies Active Allergy Reactions Severity Noted Date Comments Valsartan 07/10/2010 Enalapril 05/21/2006 Escitalopram Oxalate Nausea/vomiting 10/11/2009 Nauseated Iodinated Diagnostic Agents Nausea/vomiting 05/2010 IV Contrast Lisinopril 05/21/2006 Metoprolol Tartrate 11/18/2006 Made pulse low [place] Oil-Black Currant-Vit E 07/10/2010 Verapamil 03/21/2004 Bupropion [...] Active dilTIAZem HCl ER Beads 360 MG LW48Fzlamyjlspz:HTN , goal below 130/80 TAKE 1 CAPSULE [...] Hypoxemia 10/08/2011 10/30/2015 Genetic Sleep Disorder Research Other*[id number] 07/25/2011 05/15/2016 Diverticulitis of colon 07/25/2011 01/06/20 [...] request the billing form sent to fax [phone] be filled and returned because they are billing Medicare they need this form for Medicare's guide lines. Please fill and return this to fax [phone]. Thanks, Vicenta Meek [facility] [phone] 07/01/2019,10:17 AM * Telephone Encounter - Winnie Dolan PHARM Tech - 06/30/2019 10:34 AM EDT Med 4 home calling to request that provider sign over form. Caller can be reached at [phone] . Thank you, Winnie Dolan Photographic Engineer [facility] 06/30/2019, 10:34 AM * Telephone Encounter - Renetta Gu LPN - 06/30/2019 8:54 AM EDT Is actually showing that went by phone order. Prescribed medication called to confirmed pharmacy. Thank you * Telephone Encounter - Marcela Pinto MD - 06/29/2019 4:10 PM EDT Seems like taken care of. Can we confirm with pharmacy? thanks. * Addendum Note - Mckayla Dawson [facility] - 06/29/2019 12:35 PM EDT Addended by: MCKAYLA DAWSON on: 06/29/2019 12:35 PM Modules accepted: Orders * Telephone Encounter - Mckayla Dawson [facility] - 06/29/2019 12:35 PM EDT Resent. Thanks, Mckayla Dawson, PharmD Clinical Pharmacist [facility] [phone] 06/29/2019,12:35 PM * Telephone Encounter - Jaymie Mccoy CPhT - 06/29/2019 12:21 PM EDT Drs NPI must be on the rx and it cannot say "as needed" can say "as directed" please fix and send back for the nebulizer solution Thanks, Jaymie Mccoy Photographic Engineer Pharmacy Refill Call Center 06/29/2019, 12:22 PM * Addendum Note - Mckayla Dawson RP - 06/29/2019 10:31 AM EDT Addended by: MCKAYLA DAWSON on: 06/29/2019 10:31 AM Modules accepted: Orders * Telephone Encounter - Mckayla Dawson [facility] - 06/29/2019 10:30 AM EDT Ordered and faxed to pharmacy. Thanks, Mckayla Dawson, PharmD Clinical Pharmacist [facility] [phone] 06/29/2019,10:30 AM * Telephone Encounter - Uyen Steven CPhT - 06/29/2019 10:22 AM EDT Pharmacy checking status of medication Please fax to [phone] Pending Prescriptions: Disp Refills albuterol sulfate (PROVENTIL) [...] the medication was ordered: 07/17/2018 Pharmacy: [id number] [facility] Is [...] Alarcon CPhT - 06/28/2019 10:23 AM EDT [address] is calling to check on status of albuterol sulfate NEB SOLN Rx. Please FAX RX TO [phone]. Pt can be reached at the following number(s): Patient Phone Numbers Thank you, Nita Alarcon Photographic Engineer Pharmacy Refill Call Center 06/28/2019, 10:23 AM * Addendum Note - Renetta Gu LPN - 06/27/2019 1:21 PM EDT Addended by: RENETTA GU on: 06/27/2019 01:21 PM Modules accepted: Orders * Telephone Encounter - Jaymie Mccoy CPhT - 06/25/2019 9:53 AM EDT Med 4 home checking status Thanks, Jaymie Mccoy Photographic Engineer Pharmacy Refill Call Center 06/25/2019, 9:53 AM * Telephone Encounter - Mary Freeman PHARM Tech - 06/24/2019 11:25 AM EDT [id number] calling stating they had faxed request for albuterol sulfate (PROVENTIL) (2.5 MG/3ML) 0.083% nebulizer solution. Nathaly from [address] requesting Rx faxed back to Nathaly can be reached at [phone] Thank you, Mary Masters Photographic Engineer [employer] 06/24/2019, 11:29 AM documented in this encounter Plan of Treatment Upcoming Encounters Date Type Specialty Care Team Description 07/[facility]2019 [facility] [address] [place] [address] [place] [address] 07/09/2019 Office Visit Internal Medicine Marcela Pinto MD 200 [facility] [place] [address] [phone] 07/13/2019 Nutrition Services Gastroenterology Nita Enriquez RDN [address] [place] [address] [place] [address] [phone] 06/06/2020 Imaging Radiology Health Maintenance Due Date [...] on File Type Date Recorded Patient Forms Analyst Expl anation Advanced Directive Advanced Directive Advanced Directive Advanced Directive Advanced Directive Advanced Directive Advanced Directive Advanced Directive Advanced Directive Advanced Directive Advanced Directive Advanced Directive Advanced Directive Advanced Directive Advanced Directive
--- OUTSIDE RECORDS SUMMARY | 2023-06-18 03:35 | External Medical Summary | Summary of Care ---
Author Name Unknown Organization [place] [address] Care Team Providers Care Environmental Manager Name Role Phone Marcela Pinto MD Primary Care Provider [phone] Reason for Visit * Reason Comments Med Request Encounter Details Date Type Department Care Team Description 06/24/2019 Telephone General Internal Medicine [facility] [address] [facility] [address] [place] [address] Marcela Pinto MD 200 [place], [place] [id number] Med Request Allergies Active Allergy Reactions Severity [...] 7.0% ([facility]) USE TO TEST BLOOD SUGAR 4 TIMES [...] Tab 3 09/07/2018 Active Nebulizers (NEBULIZER COMPRESSOR) [facility] Inhale via nebulizer. Use as directed. Please give tubing to use with it. 1 Each 1 11/12/2018 Active ondansetron ODT (ZOFRAN) 8 MG TBDPIndications:Marvin ea DISSOLVE 1 TABLET ON TONGUE EVERY [...] Active dilTIAZem HCl ER Beads 360 MG VI95Wstuevnlcra:HTN, goal below 130/80 TAKE 1 CAPSULE BY [...] Hypoxemia 10/08/2011 10/30/2015 Genetic Sleep Disorder Research Other*[id number] 07/25/2011 05/15/2016 Diverticulitis of colon 07/25/2011 01/06/20 [...] encounter Miscellaneous Notes * Telephone Encounter - Uyen Steven CPhT - 06/29/2019 10:22 AM EDT Pharmacy checking status of medication Please fax to [phone] Pending Prescriptions: Disp Refills albuterol sulfate (PROVENTIL) [...] the medication was ordered: 07/17/2018 Pharmacy: [id number] [id number] [facility] Is this request for a controlled [...] Alarcon CPhT - 06/28/2019 10:23 AM EDT [email or web address] is calling to check on status of albuterol sulfate NEB SOLN Rx. Please FAX RX TO [phone]. Pt can be reached at the following number(s): Patient Phone Numbers Thank you, Nita Alarcon Net[employer] Admin Pharmacy Refill Call Center 06/28/2019, 10:23 AM * Addendum Note - Renetta Gu LPN - 06/27/2019 1:21 PM EDT Addended by: RENETTA GU on: 06/27/2019 01:21 PM Modules accepted: Orders * Telephone Encounter - Jaymie Mccoy CPhT - 06/25/2019 9:53 AM EDT Med 4 home checking status ThanksJaymie Netbackup Admin Pharmacy Refill Call Center 06/25/2019, 9:53 AM * Telephone Encounter - Mary Freeman PHARM Tech - 06/24/2019 11:25 AM EDT [address] calling stating they had faxed request for albuterol sulfate (PROVENTIL) (2.5 MG/3ML) 0.083% nebulizer solution. Nathaly from [address] requesting Rx faxed back to Nathaly can be reached at [phone] Thank you, Mary Masters Netbackup Admin [email or web address] 06/24/2019, 11:29 AM documented in this encounter Plan of Treatment Upcoming Encounters Date Type Specialty Care Team Description 07/08/2019 Office Visit Podiatry [facility] [address] [place] [address] [place] [address] 07/09/2019 Office Visit Internal Medicine Marcela Pinto MD [address] [place] [address], [place] [address] [phone] 07/13/2019 Nutrition Services Gastroenterology Nita Enriquez, AKIKO [address] [place] [address] [place] [id number] 06/06/2020 Imaging Radiology Health Maintenance Due Date [...] Documents on File Type Date Recorded Patient Land Survey Technician Expl anation Advanced Directive Advanced Directive Advanced Directive Advanced Directive Advanced Directive Advanced Directive Advanced Directive Advanced Directive Advanced Directive Advanced Directive Advanced Directive Advanced Directive Advanced Directive Advanced Directive Advanced Directive
--- OUTSIDE RECORDS SUMMARY | 2023-06-18 03:35 | External Medical Summary | Summary of Care ---
Author Name Unknown Organization [place] [address] Care Team Providers Care Pt Escort Name Role Phone Marcela Pinto MD Primary Care Provider [phone] Reason for Visit * Reason Comments Med Request Encounter Details Date Type Department Care Team Description 06/24/2019 Telephone General Internal Medicine [facility] [address] [facility] [place] [address] Marcela Pinto MD 200 [place], [place] [id number] Med Request Allergies Active Allergy Reactions Severity Noted Date Comments Valsartan 07/10/2010 Enalapril 05/21/2006 Escitalopram Oxalate Nausea/vomiting 10/11/2009 Nauseated Iodinated Diagnostic Agents Nausea/vomiting 05/2010 IV Contrast Lisinopril 05/21/2006 Metoprolol Tartrate 11/18/2006 Made pulse low [place] Oil-Black Currant-Vit E 07/10/2010 Verapamil 03/21/2004 Bupropion [...] [facility]) USE TO TEST BLOOD SUGAR 4 TIMES [...] Active dilTIAZem HCl ER Beads 360 MG [id number]:HTN , goal below 130/80 TAKE 1 CAPSULE [...] Hypoxemia 10/08/2011 10/30/2015 Genetic Sleep Disorder Research Other*[id number] 07/25/2011 05/15/2016 Diverticulitis of colon 07/25/2011 01/06/20 [...] Resent. Thanks, Mckayla Dawson, PharmD Clinical Pharmacist [facility] [phone] 06/29/2019,12:35 PM * Telephone Encounter - Jaymie Mccoy CPhT - 06/29/2019 12:21 PM EDT Drs NPI must be on the rx and it cannot say "as needed" can say "as directed" please fix and send back for the nebulizer solution ThanksJaymie Authors [employer]ational Pharmacy Refill Call Center 06/29/2019, 12:22 PM * Addendum Note - Mckayla Dawson [facility] - 06/29/2019 10:31 AM EDT Addended by: MCKAYLA DAWSON on: 06/29/2019 10:31 AM Modules accepted: Orders * Telephone Encounter - Mckayla Dawson [facility] - 06/29/2019 10:30 AM EDT Ordered and faxed to pharmacy. Thanks, Mckayla Dawson, PharmD Clinical Pharmacist [facility] [phone] 06/29/2019,10:30 AM * Telephone Encounter - Uyen Steven CPhT - 06/29/2019 10:22 AM EDT Pharmacy checking status of medication Please fax to [phone] Pending Prescriptions: Disp Refills albuterol sulfate (PROVENTIL) [...] date the medication was ordered: 07/17/2018 Pharmacy: [facility]Y #[id number] Is this request for a controlled substance?No [...] Alarcon CPhT - 06/28/2019 10:23 AM EDT [id number] is calling to check on status of albuterol sulfate NEB SOLN Rx. Please FAX RX TO [phone]. Pt can be reached at the following number(s): Patient Phone Numbers Thank you, Nita Alarcon Authors [employer] Pharmacy Refill Call Center 06/28/2019, 10:23 AM * Addendum Note - Renetta Gu LPN - 06/27/2019 1:21 PM EDT Addended by: RENETTA GU on: 06/27/2019 01:21 PM Modules accepted: Orders * Telephone Encounter - Jaymie Mccoy CPhT - 06/25/2019 9:53 AM EDT Med 4 home checking status Thanks, Jaymie Mccoy Authors [employer] Pharmacy Refill Call Center 06/25/2019, 9:53 AM * Telephone Encounter - Mary Freeman PHARM Tech - 06/24/2019 11:25 AM EDT [address] calling stating they had faxed request for albuterol sulfate (PROVENTIL) (2.5 MG/3ML) 0.083% nebulizer solution. Nathaly from [address] requesting Rx faxed back to Nathaly can be reached at [phone] Thank you, Mary Masters Authors Motivational [facility] 06/24/2019, 11:29 AM documented in this encounter Plan of Treatment Upcoming Encounters Date Type Specialty Care Team Description 07/08/2019 Office Visit Podiatry Region, [place] [address] [place] [address] [place] [address] 07/09/2019 Office Visit Internal Medicine [facility]into MD [address] [facility] [address] [phone] 07/13/2019 Nutrition Services Gastroenterology Nita Enriquez RDN [address] [place] [address] [place] [address] [phone] 06/06/2020 Imaging Radiology Health Maintenance Due Date [...] Documents on File Type Date Recorded Patient Hose Builder Expl anation Advanced Directive Advanced Directive Advanced Directive Advanced Directive Advanced Directive Advanced Directive Advanced Directive Advanced Directive Advanced Directive Advanced Directive Advanced Directive Advanced Directive Advanced Directive Advanced Directive Advanced Directive
--- OUTSIDE RECORDS SUMMARY | 2023-06-18 03:35 | External Medical Summary | Summary of Care ---
Author Name Unknown Organization [place] [address] Care Team Providers Care Lacing Cutter Name Role Phone Marcela Pinto MD Primary Care Provider [phone] Reason for Visit * Reason Comments Med Request Encounter Details Date Type Department Care Team Description 06/24/2019 Telephone General Internal Medicine [facility] [address] [place] [address] Marcela Pinto MD [address] [place], [place] [id number] Med Request Allergies Active Allergy Reactions Severity Noted Date Comments Valsartan 07/10/2010 Enalapril 05/21/2006 Escitalopram Oxalate Nausea/vomiting 10/11/2009 Nauseated Iodinated Diagnostic Agents Nausea/vomiting 05/2010 IV Contrast Lisinopril 05/21/2006 Metoprolol Tartrate 11/18/2006 Made pulse low [place] Oil-Black Currant-Vit E 07/10/2010 Verapamil 03/21/2004 Bupropion [...] Active dilTIAZem HCl ER Beads 360 MG [id number] , goal below 130/80 TAKE 1 CAPSULE [...] Hypoxemia 10/08/2011 10/30/2015 Genetic Sleep Disorder Research Other*[id number] 07/25/2011 05/15/2016 Diverticulitis of colon 07/25/2011 01/06/20 [...] request the billing form sent to fax [phone] be filled and returned because they are billing Medicare they need this form for Medicare's guide lines. Please fill and return this to fax [phone]. Thanks, Vicenta Meek [facility] [phone] 07/01/2019,10:17 AM * Telephone Encounter - Winnie Dolan PHARM Tech - 06/30/2019 10:34 AM EDT [facility] calling to request that provider sign over form. Caller can be reached at [phone] . Thank you, Winnie Dolan [employer] [facility] 06/30/2019, 10:34 AM * Telephone Encounter - Renetta Gu LPN - 06/30/2019 8:54 AM EDT Is actually showing that went by phone order. Prescribed medication called to confirmed pharmacy. Thank you * Telephone Encounter - Marcela Pinto MD - 06/29/2019 4:10 PM EDT Seems like taken care of. Can we confirm with pharmacy? thanks. * Addendum Note - Mckayla Dawson [facility] - 06/29/2019 12:35 PM EDT Addended by: MCKAYLA DAWSON on: 06/29/2019 12:35 PM Modules accepted: Orders * Telephone Encounter - Mckayla Dawson [facility] - 06/29/2019 12:35 PM EDT Resent. Thanks, Mckayla Dawson, Jamal Clinical Pharmacist [facility] [phone] 06/29/2019,12:35 PM * Telephone Encounter - Jaymie Mccoy CPhT - 06/29/2019 12:21 PM EDT Drs NPI must be on the rx and it cannot say "as needed" can say "as directed" please fix and send back for the nebulizer solution Thanks, Jaymie Mccoy [facility] 06/29/2019, 12:22 PM * Addendum Note - Mckayla Dawson [facility] - 06/29/2019 10:31 AM EDT Addended by: MCKAYLA DAWSON on: 06/29/2019 10:31 AM Modules accepted: Orders * Telephone Encounter - Mckayla Dawson [facility] - 06/29/2019 10:30 AM EDT Ordered and faxed to pharmacy. Thanks, Mckayla Dawson, PharmD Clinical Pharmacist [facility] [phone] 06/29/2019,10:30 AM * Telephone Encounter - Uyen Steven [facility] - 06/29/2019 10:22 AM EDT Pharmacy checking status of medication Please fax to [phone] Pending Prescriptions: Disp Refills albuterol sulfate (PROVENTIL) [...] the medication was ordered: 07/17/2018 Pharmacy: [id number] [id number] [facility] Is this request for a controlled [...] Alarcon CPhT - 06/28/2019 10:23 AM EDT [email or web address] is calling to check on status of albuterol sulfate NEB SOLN Rx. Please FAX RX TO [phone]. Pt can be reached at the following number(s): Patient Phone Numbers Thank you, Nita Alarcon [facility] 06/28/2019, 10:23 AM * Addendum Note - Renetta Gu LPN - 06/27/2019 1:21 PM EDT Addended by: RENETTA GU on: 06/27/2019 01:21 PM Modules accepted: Orders * Telephone Encounter - Jaymie Mccoy CPhT - 06/25/2019 9:53 AM EDT [facility] checking status ThanksJaymie [facility] 06/25/2019, 9:53 AM * Telephone Encounter - Mary Freeman PHARM Tech - 06/24/2019 11:25 AM EDT [address] calling stating they had faxed request for albuterol sulfate (PROVENTIL) (2.5 MG/3ML) 0.083% nebulizer solution. Nathaly from [address] requesting Rx faxed back to Nathaly can be reached at [phone] Thank you, Mary Masters [employer] [facility] 06/24/2019, 11:29 AM documented in this encounter Plan of Treatment Upcoming Encounters Date Type Specialty Care Team Description 07/08/2019 Office Visit Podiatry Region, [facility] [address] [place] [address] [place] [id number] 07/09/2019 Office Visit Internal Medicine Marcela Pinto MD [address] [facility] [place] [address] [phone] 07/13/2019 Nutrition Services Gastroenterology Nita Enriquez RDN [address] [place] [address] [place] [id number] 06/06/2020 Imaging Radiology Health Maintenance Due Date [...] Documents on File Type Date Recorded Patient Pharmacy Clinical Specialist Expl anation Advanced Directive Advanced Directive Advanced Directive Advanced Directive Advanced Directive Advanced Directive Advanced Directive Advanced Directive Advanced Directive Advanced Directive Advanced Directive Advanced Directive Advanced Directive Advanced Directive Advanced Directive
--- OUTSIDE RECORDS SUMMARY | 2023-06-18 03:35 | External Medical Summary | Summary of Care ---
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 Name Role Phone Marcela Pinto MD Primary Care Provider [phone] Reason for Visit * Reason Comments Adult Annual Wellness Visit, Subsequent Visit Encounter Details Date Type Department Care Team Description 06/28/2019 Nurse Only Ancillary Scenery [place] [address] [place] [id number] [place], Nurse Annual Wellness Scenery [address] [place] [id number] Adult Annual Wellness Visit, Subsequent Visit Allergies Active Allergy Reactions Severity Noted Date Comments Valsartan 07/10/2010 Enalapril 05/21/2006 Escitalopram Oxalate Nausea/vomiting 10/11/2009 Nauseated Iodinated Diagnostic Agents Nausea/vomiting 05/2010 IV Contrast Lisinopril 05/21/2006 Metoprolol Tartrate 11/18/2006 Made pulse low [place] Oil-Black Currant-Vit E 07/10/2010 Verapamil 03/21/2004 Bupropion [...] 2 Bottle 3 6 Active Glucose Blood (YIEMY CONTOUR TEST) STRPIndications:Typ e 2 diabetes mellitus with hemoglobin A1c goal of less than 7.0% ([facility]) USE TO TEST BLOOD SUGAR 4 TIMES [...] Active dilTIAZem HCl ER Beads 360 MG [id number] , goal below 130/80 TAKE 1 CAPSULE [...] Hypoxemia 10/08/2011 10/30/2015 Genetic Sleep Disorder Research Other*[id number] 07/25/2011 05/15/2016 Diverticulitis of colon 07/25/2011 01/06/20 [...] Sign Reading Time Taken Comments Blood Pressure 132/64 06/28/2019 2:37 PM EDT Pulse - - Temperature - - Respiratory Rate - - Oxygen Saturation - - Inhaled Oxygen Concentration - - Weight 114.8 kg (253 lb) 06/28/2019 2:37 PM EDT Height 170.2 cm (5' 7") 06/28/2019 2:37 PM EDT Body Mass Index 39.63 06/28/2019 2:37 PM EDT documented in this encounter Patient Instructions * Patient Instructions* Naty Gutierrez RN - 06/28/2019 2:35 PM EDT Preventing Falls: Are You At Risk of Falling? Ask for help to reduce risk of falling in your home. As you get older, you're not as steady on your feet as you once were. And you may have health problems you didn't have when you were younger. So, it's not surprising that older people are more likelyto trip and fall. Falling can be very serious. It can change your overall health and quality of life. That's why it's important to be aware of your own risk of falling. The dangers of falling Falls are one of the main causes of injury in people over age 65. An older person who falls may take longer to get better than a younger person. And, after a fall, an older person is more likely to have problems that don't go away. So, preventing falls can help you avoid serious health problems. Are you at risk of falling? Answer these questions to rate your level of risk. Are you a woman? Have you fallen or stumbled in the last year? Are you over age 65? Are you ever dizzy or lightheaded with standing? Do you have a hard time getting in and out of the bathtub or on and off the toilet? Do you lean on objects to help you get around? Or do you use a cane or walker? Do you have vision or hearing problems? For example, do you need new glasses or hearing aids? Do you have 2 or more long-lasting (chronic) medical conditions? Do you take 3 or more medicines? Have you felt depressed recently? Have you had more trouble with your memory in recent months? Are there hazards in your home that might cause you to fall, such as loose rugs or poor lighting? Do you have a pet that jumps on you or might trip you? Have you stopped getting regular exercise? Do you have diabetes? Do you have a neurologic disease, such as Parkinson or Alzheimer disease? Do you drink alcohol? Do you wear athletic shoes or slippers, or go barefoot at home? You can help prevent falls If you answered "yes" to any of the above questions, take steps to reduce your risk of a fall. Monitoring health conditions and keeping walkways in your home free of clutter are just two ways. Changing is sometimes easier said than done. But keep in mind that even small changes can make you less likely to fall. The fear of falling It's normal to be scared of falling, especially if you've fallen before. But being afraid can actually make you more likely to fall. This is because: Fear might cause you to become less active. Being less active can lead to a loss of strength andbalance. Fear can lead to isolation from others, depression, or the use of more medicines or alcohol. Andall these things make falling even more likely. To break the cycle, learn more about ways to avoid falling. As you take control, you may find yourself feeling less afraid. Date Last Reviewed: 02/10/201719992206-2999 [employer]. [address] [place] [address], [place] [address]. All rights reserved. This information is not intended as a substitute for professional medical care. Always follow your healthcare professional's instructions. Exercises to Prevent Falls Certain types of exercises may help make you less likely to fall. Try the ones below. Or do other exercises that your healthcare provider suggests. Depending on your health, you may need to start slowly. Don't let that stop you. Even small amounts of exercise can help you. Be sure to talk to your healthcare provider before starting any exercise program. Improve balance Many types of exercise can help improve balance.Trudy chi and yoga are good examples. Here's another one to try. You can do it anytime and almost anywhere. Stand next to a counter or solid support. Push yourself up onto your tiptoes. Hold for 5 seconds. If you start to lose your balance, hold on to the counter. Rest and repeat 5 times. Work up to holding for 20 to 30 seconds, if you can. Increase flexibility Being more flexible makes it easier for [...] Then repeat 5 times. Switch legs. Build strength "Resistance" exercises help build strength. You can do them without equipment. Or you can use weights, elastic bands, or special machines. One such exercise is called the biceps curl. You can hold a 1-pound weight or even a can of soup. Do this exercise at least 3 times a week. Strive for every day. Sit up straight in a chair. Keep your elbow close to your body and your wrist straight. Bend your arm, moving your handup to your shoulder. Then slowly lower your arm. Repeat 5 times. Switch to the other arm. Build your staying power Aerobic exercises make your heart andlungs stronger so you can keep moving longer. Walking and swimming are two of the best types of exercises you can do. Using a stationary bike is great, too. Find an aerobic exercise that you enjoy. Start slowly and build up. Even5 minutes is helpful. Aim fora goal [id number], at [id number] a week. You don't have to [id number] in1 session.Break it up and walk a little throughout the day. More helpful tips Start easy. Slowly work up to doing more. Talk with your healthcareprovider about the best exercises for you. Call senior centers or healthclubs about exercise programs. If needed, have a family member watch you walk every so often to check your stability. Exercise with a friend. Choose an activity you both enjoy. Consider trudy chi or yoga to strengthen your balance. Try exercises that you can do anytime, anywhere. Here are2 examples. Have someone with you when you first try these: ? Practice walking by placing1 foot right in front of the other. ? Stand up and sit down10 times. Repeat this throughout the day. Date Last Reviewed: 02/10/201719990700-[address] [employer] [place] [address]. All rights reserved. This information is not intended as a substitute for professional medical care. Always follow your healthcare professional's instructions. Hi Johan Juany, As your primary care physician, I know [...] list that summarizes your electronic health record: Chronic Medical Conditions: @CHRONICDISEASE@ Current Medication List: (as of Last Office Visit: No Previous Office Visits) Current Outpatient Medications Medication Sig Dispense Refill HYDROcodone-acetaminophen 5-325 mg per tab 5-325 MG [...] HOURS NEEDED FOR NAUSEA 60 Tab 5 atorvaSTATin (LIPITOR) 40 MG Tablet Take 1 Tab by mouth daily. 90 Tab 3 albuterol sulfate (PROVENTIL) (2.5 MG/3ML) 0.083% nebulizer solution USE ONE NEBULIZER TREATMENT TWICE A DAY NEEDED FOR WORSENING ASTHMA. J45.909, J44.9 225 mL 1 furosemide (LASIX) 40 MG Tablet TAKE [...] THE SAMETIME EVERY DAY 30 Cap 5 VITAMIN D 1000 UNITS PO TABS one tablet daily Nebulizers (NEBULIZER COMPRESSOR) MISC Inhale via nebulizer. Use as directed. Please give tubing to use with it. 1 Each 1 LANCETS MISC Use as directed to test blood sugar once daily--Dx code 250.00 100 Each 3 Current List of Allergies: (as of Last Office Visit: No Previous Office Visits) Review of patient's allergies indicates: Allergen Reactions Diovan [Valsartan] Enalapril Escitalopram Oxalate Nausea/vomiting Nauseated Iodinated Diagnostic Agents Nausea/vomiting IV Contrast Lisinopril Metoprolol Tartrate Made pulse low [place] Oil-Black Currant-Vit E Verapamil Wellbutrin [Bupropion Hcl] Makes pt sick in the stomach Most Recent Lab Results: Results for orders placed or performed in visit on 04/02/19 CHEMISTRY-OUTSIDE Result Value Ref Range CREATININE-OUTSIDE LAB 0.85 0.55 - 1.02 MG/DL GFR ESTIMATED-OUTSIDE LAB >60 60 ML/MIN POTASSIUM-OUTSIDE LAB 3.8 3.5 - 5.1 MMOL GLUCOSE-OUTSIDE LAB 109 70 - 110 MG/DL HOURS FASTING TRIGLYCERIDES-OUTSIDE LAB 133 30 - 200 MG/DL CHOLESTEROL-OUTSIDE LAB 140 200 MG/DL HDL-OUTSIDE LAB 56.0 40.0 - 59.0 MG/DL CHOL/HDL RATIO-OUTSIDE LAB LDL (CALCULATED)-OUTSIDE LAB 57.40 0 - 100 MG/DL LDL (DIRECT MEASURE)-OUTSIDE LAB HEMOGLOBIN, W2C-VNBNFZH LAB 6.7 (A) 4.2 - 6.3 % PHOSPHORUS-OUTSIDE LAB 3.8 2.5 - 4.9 MG/DL PTH-OUTSIDE LAB MICROALBUMIN RATIO-OUTSIDE LAB PROTEIN, UA-OUTSIDE LAB NEG NEG HEMOGLOBIN-OUTSIDE LAB 9.2 (A) 12.0 - 16.0 GM/DL CHEMISTRY COMMENT-OUTSIDE LAB *Note: Due to a large number of results and/or encounters for the requested time period, some results have not been displayed. A complete set of results can be found in Results Review. Sincerely, Marcela Pinto MD 06/28/2019 [employer] Calendar (as of Last Office Visit: No Previous Office Visits) Check off each item when done! @[facility](,T,,Due Now or Overdue)@ @[facility](T+1,T+90,,Due in 3 Months)@ @[facility](T+91,T+180,,Due in 6 Months)@ @[facility](T+181,,,Due This Year or Later)@ As you look over the recommended services, be sure to check with your insurance company to determine what's covered. [employer] is a great tool that helps you review your medical record online, including test results, doctor notes and your health summary. You can also schedule appointments with me and other members of your care team, request prescription refills and ask for advice related to your medical conditions at [employer]. documented in this encounter Progress Notes * Naty Gutierrez RN - 06/28/2019 2:23 PM EDT I had the privilege of seeing this patient for an Annual Wellness Exam today. [facility] as well as the results of the [facility] report. -Wants to wait on flu shot until later in the season. -Wants to discuss shingrix with PCP -Otherwise HM up to date -Recent ER trip and hospital stay in March for diverticulitis. Getting better now. -Reports that her breathing is her main concern. Feels her COPD is getting worse. Inhalers working okay. She is going to see the waste cotton cleaner in a couple of weeks for weight loss-feels she would breathe better if she lost weight. She will also ask PCP about MTM referral for COPD. Maybe we could optimize her inhalers. AD8 Dementia Screening Interview Person answering questions: [...] Annual Wellness Visit: Nina Harrington is a 78 year old female who presents for an Adult Annual Wellness Visit. Depression Screening: Did the patient complete the screening questionnaire for Depression: Yes. Is the patient's total score for Depression 15 or greater? No, no further intervention needed, unless requested by patient.. Did the patient answer positively to the suicide question? No, no further intervention needed, unless requested by patient.. In general, compared to other people your age, what would you say that your health is? Fair. Breathing is her main concern. Ht Readings from Last 1 Encounters: 04/06/19 1.727 m (5' 8") Wt Readings from Last 1 Encounters: 04/14/19 111.4 kg (245 lb 11.2 oz) BMI: BMI Greater than 30 BMI: There is no height or weight on file. BP Readings from Last 1 Encounters: 04/14/19 124/74 Medical/Surgical/Family History Reviewed: Yes Past Medical History: Diagnosis Date ACEI/ARB contraindicated Asthma Carpal tunnel syndrome DM type 2, goal: symptom mgmt (HCC) Generalized osteoarthritis HTN, goal below 140/90 Mixed dyslipidemia Past Surgical History: Procedure Laterality Date APPENDECTOMY W/OTHER PROCEDURE 1960 when removed gall bladder COLONOSCOPY, DIAGNOSTIC (RECTUM) 05/29/2016 poor prep, diverticulosis/inpt [facility] COLONOSCOPY, DIAGNOSTIC (RECTUM) 06/05/2017 diverticulosis, repeat 3 yrs/[facility] COLONOSCOPY, DIAGNOSTIC (RECTUM) 02/28/2018 adenomatous polyps, diverticulosis, repeat 3 yrs / [facility] COLONOSCOPY, W/BIOPSY 03/20/12 hyperplastic polyps rpt 3 years. EGD, FLEXIBLE, DIAGNOSTIC 04/29/2014 normal/inpt [facility] EGD, FLEXIBLE, DIAGNOSTIC 05/29/2016 fundic submucosal mass/inpt [facility] EGD, FLEXIBLE,W/ENDOSCOPIC US 11/08/2016 inflammatory changes, stomach lesion, repeat EUS 1.5 yrs/[facility] EGD, FLEXIBLE,W/ENDOSCOPIC US 05/01/2018 stromal cell (smooth muscle) neoplasm, CBD dilation, repeat 2 yrs (needs OV prior)/[facility] INCISIONAL HERNIA REPAIR, LAP, REDUCIBLE 09/29/12 Repair of incarcerated supraumbilical (incisional) hernia with [facility] mesh 09/29/12 LIGATE/CUT OVIDUCT(S) REMOVAL OF TONSILS, AGE 12+ age 11 REMOVE GALLBLADDER 1960 SIGMOIDOSCOPY, DIAGNOSTIC 04/29/2014 stool in rectum/inpt [facility] SMALL BOWEL ENDOSCOPY, REMOVE FOREIGN BODY mesh from prior hernia surgery, wrapped around small bowel. small bowel surgery Family History Problem Relation Age of Onset Breast Cancer Mother Heart disease Father No Known Problems Sister COPD Brother COPD Brother COPD Brother Diabetes Aunt (Unspecified) Other (JORDAN) Son not diagnosed Lung Disorder Grandfather (Paternal) ?COPD vs asthma Asthma Daughter Has patient ever had cancer? History of cancer, type: skin cancer and location: forehead. Removed and no issues. 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 Tobacco Use Smoking status: Never Smoker Smokeless tobacco: Never Used Substance Use Topics Alcohol use: No Tobacco/Alcohol screening completed today: Yes Hospital Care: Admissions (within the last year): Not Applicable ER within 30 days:Yes, when: 06/23/19 and where: [facility] Does the patient have advance directives/living will? No. Does the patient want information? No. Patient declined information. Already has the information. Last Physical Exam: Last physical exam: 04/06/19 Does patient see primary provider regularly? Yes Does patient see other providers? Yes, Specialist Patient care team updated? Yes Review of patient's allergies indicates: Allergen Reactions Diovan [Valsartan] Enalapril Escitalopram Oxalate Nausea/vomiting Nauseated Iodinated Diagnostic Agents Nausea/vomiting IV Contrast Lisinopril Metoprolol Tartrate Made pulse low [place] Oil-Black Currant-Vit E Verapamil Wellbutrin [Bupropion Hcl] Makes pt sick in the stomach Immunization History Administered Date(s) Administered Hepatitis B, 20+ yrs 03/20/2017, 04/21/2017, 10/01/2017 Pneumococcal Conjugate Vacc, 13 Valent (Prevnar) 03/28/2015 Pneumococcal Polysaccharide PPV23 (Pneumovax) 05/21/2006 Seasonal Influenza, Quadrivalent, No Preserve, 6 Mons & Above, IM 07/30/2017, 06/16/2018 Seasonal Influenza, Quadrivalent, No Preserve, IM 07/14/2015, 08/15/2016 Seasonal Influenza, Trivalent, with Preserve, 3yr & Above, Split 08/12/2006, 09/01/2008, 07/18/2009, 08/16/2010, 08/06/2011, 06/26/2012, 07/26/2013, 08/04/2014 TD, Preservative Free 02/28/2009 TDAP (age 10 and older)(Boostrix) 06/04/2018 Varicella Zoster Vaccine (Adult) 07/06/2012 Current Outpatient Medications Medication Sig Dispense Refill HYDROcodone-acetaminophen 5-325 mg per tab 5-325 MG [...] HOURS NEEDED FOR NAUSEA 60 Tab 5 atorvaSTATin (LIPITOR) 40 MG Tablet Take 1 Tab by mouth daily. 90 Tab 3 albuterol sulfate (PROVENTIL) (2.5 MG/3ML) 0.083% nebulizer solution USE ONE NEBULIZER TREATMENT TWICE A DAY NEEDED FOR WORSENING ASTHMA. J45.909, J44.9 225 mL 1 furosemide (LASIX) 40 MG Tablet TAKE [...] THE SAMETIME EVERY DAY 30 Cap 5 VITAMIN D 1000 UNITS PO TABS one tablet daily Nebulizers (NEBULIZER COMPRESSOR) MISC Inhale via nebulizer. Use as directed. Please give tubing to use with it. 1 Each 1 LANCETS MISC Use as directed to test blood sugar once daily--Dx code 250.00 100 Each 3 Medication Compliance: Patient is able to obtain all of her medications? Yes Patient takes medications as prescribed? Yes Patient manages own medications: Yes Patient uses a pill box? No Dental Exam: Yes: Every 6 Months Eye Screening: Yes: Every year. Cataract surgery coming up in July. Are you having trouble with hearing: No Do you use an assistive device to help your hearing: No Exercise Screening: does not exercise regularly Nutrition Assessment: Eats three meals a day and Has an upcoming appt with waste cotton cleaner. Knows she eats too much junk. Pain Screening: Are you having any pain? No. Does have some back pain on and off. Uses topicals. Patient and Caregiver Support System: Patient lives: alone Means of Transportation: Drives. Not a concern. and Family transports. Pt only drives short distances. Patient lives in: Trailer home. Few steps to get inside. Hand railing. Doing okay. Community Resources: Not Applicable Functional Status and ADL Skills: Has patient ever had an amputation? No Functional Assessment: 78- Normal activity with effort: some symptoms of disease Ambulation: Patient ambulates without assistive device. Independent and Sometimes uses a walker when going to [employer] since it's such a long walk. Dressing: Gets clothes and dresses without any assistance: Independent Able to move freely in chair or bed including turning over: Independent Repositioning (bed or chair): Not applicable Transfers: Independent Toileting: Goes to bathroom, uses toilet, arranges clothes and returns without any assistance: Independent continent of bladder and continent of bowel Feeding: Self Bathing: Self; Shower Chair. Tub shower. Non-skid mat. Requires none assistance with ADLs. Instrumental ADL's: Shopping: Independent Housekeeping: Minimal Assistance Handling Finances: Independent DME Vendor Name: Not Applicable Fall Risk Assessment: Can the patient demonstrate [...] than 4 medications Uses sedatives or narcotics Older than age 70 Awr-Su-eco-Go Test: Time began at 210. Patient stood from sitting position and walked approximately 10 feet, returned and sat down. Total time for hyk-qb-dmz-go test was 11 seconds. Xjz-Hh-dez-Go Test Completed: Yes Gender Specific Preventative Plan: Health Maintenance Topic Date Due *O2 ASSESSMENT COMPLETED IN PAST YEAR FOR COPD 05/18/2019 Influenza Vaccine (FLU shot) (1) 06/13/2019 DIABETES-EYE EXAM 09/14/2019 DIABETES-HGBA1C EVERY 6 MONTHS 09/21/2019 DIABETES-FOOT EXAM 01/06/2020 DIABETES-URINE MICROALBUMIN EVERY 12 MONTHS 03/22/2020 DXA-EVERY 5 YRS-USE SMARTSET# [id number] TO ORDER 05/01/2020 COLONOSCOPY-EVERY 3 YRS AGES 18-100 02/28/2021 DTaP,Tdap,and Td Vaccines (2 - Td) 06/04/2028 Pneumococcal Vaccine: 65+ Years Completed MENINGOCOCCAL (MENACTRA) Aged Out Follow Up/ Referrals/Handouts: Fall prevention POC document Would patient like to schedule next AWV visit: Yes Naty Gutierrez RN documented in this encounter Plan of Treatment Upcoming Encounters Date Type Specialty Care Team Description 07/08/2019 [facility] [address] [place] [address] [place] [id number] 07/09/2019 Office Visit Internal Medicine Marcela Pinto MD [address] [place] [address] [place] [id number] [phone] 07/13/2019 Nutrition Services Gastroenterology Nita Enriquez RDN [address] [place] [address] [place] [id number] 06/06/2020 Imaging Radiology Health Maintenance Due Date [...] examination at a health care facility- Primary documented in this encounter Advance Directives Documents on File Type Date Recorded 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
--- OUTSIDE RECORDS SUMMARY | 2023-06-18 03:36 | External Medical Summary | Summary of Care ---
Author Name Unknown Organization [place] [address] Care Team Providers Care Milk Of Lime Slaker Name Role Phone Alex Pinto MD Primary Care Provider [phone] Reason for Visit * Reason Comments eRx-Medication Refill Encounter Details Date Type Department Care Team Description 05/27/2019 Refill General Internal Medicine [facility] [address] [place] [address] Nicolas Oro MD [address] [place] [address] [phone] HTN, goal below 130/80 Allergies Active Allergy Reactions Severity Noted Date Comments Valsartan 07/10/2010 Enalapril 05/21/2006 Escitalopram Oxalate Nausea/vomiting 10/11/2009 Nauseated Iodinated Diagnostic Agents Nausea/vomiting 05/2010 IV Contrast Lisinopril 05/21/2006 Metoprolol Tartrate 11/18/2006 Made pulse low [place] Oil-Black Currant-Vit E 07/10/2010 Verapamil 03/21/2004 Bupropion Hcl 10/30/2009 Makes pt sick in the stomach documented as of this encounter (statuses as of 05/27/2019) Medications Medication Sig Dispensed Refills Start Date [...] FOR EDEMA 30 Tab 11 8 Active albuterol sulfate (PROVENTIL) (2.5 MG/3ML) 0.083% nebulizer solutionIndications :Asthma with severity to be determined,COPD, moderate ([facility]) USE ONE NEBULIZER TREATMENT TWICE A DAY NEEDED FOR WORSENING ASTHMA. J45.909, J44.9 225 mL 1 8 Active atorvaSTATin (LIPITOR) 40 MG TabletIndications:H yperlipidemia with target LDL less than 100 Take 1 Tab by mouth daily. 90 Tab 3 8 Active Nebulizers (NEBULIZER COMPRESSOR) MISC Inhale via nebulizer. Use as directed. Please give tubing to use with it. 1 Each 1 9 Active ondansetron ODT (ZOFRAN) 8 MG TBDPIndications:Davdi sea DISSOLVE 1 TABLET ON TONGUE EVERY [...] mouth daily. 90 Tab 1 9 Active HYDROcodone-acetami nophen 5-325 mg per tab 5-325 MG per tabletIndications:G eneralized osteoarthritis Take 1 Tab by mouth every 6 hours as needed for Pain, Mild. 120 Tab 0 9 Active dilTIAZem HCl ER Beads 360 MG [id number]:HTN , goal below 130/80 TAKE 1 CAPSULE BY MOUTH EVERY DAY 90 Cap 1 9 Active DilTIAZem HCl ER Beads 360 MG KF64Altqipxrxur:HTN , goal below 130/80 TAKE 1 CAPSULE EVERY DAY 90 Cap 1 9 05/27/20 19 Discontinued documented as of this encounter (statuses as of 05/27/2019) Active Problems Problem Noted Date Body mass [...] as of this encounter (statuses as of 05/27/2019) Resolved Problems Problem Noted Date Resolved Date [...] Hypoxemia 10/08/2011 10/30/2015 Genetic Sleep Disorder Research Other*[id number] 07/25/2011 05/15/2016 Diverticulitis of colon 07/25/2011 01/06/20 [...] as of this encounter (statuses as of 05/27/2019) Immunizations Name Administration Dates Next Due Hepatitis [...] Notes * Telephone Encounter - Melvi Juan [facility] - 05/27/2019 3:19 PM EDT Signed Prescriptions: Disp Refills dilTIAZem HCl ER Beads 360 MG CP24 90 Cap 1 Sig: TAKE 1 CAPSULE BY MOUTH EVERY DAYAuthorizing Provider: ALEX PINTO User: MELVI JUAN * Telephone Encounter - Melvi Juan [facility] - 05/27/2019 3:18 PM EDT Pending Prescriptions: Disp Refills dilTIAZem HCl ER Beads 360 MG CP24 [Pharm*90 Cap 1 Sig: TAKE 1 CAPSULE BY MOUTH EVERY DAY Last Office Visit: 04/06/2019 Next Office Visit: 07/09/2019 Scheduled Provider(s): Alex Pinto MD If no future appointments scheduled, and last appointment is greater than a year ago, please schedule patient for a follow-up appointment Last date the medication was ordered: 11/30/18 Patient Phone Numbers Labs: Lab Results Component [...] Encounters Date Type Specialty Care Team Description 06/01/2019 Imaging Radiology 06/15/2019 Nutrition Services Gastroenterology Nita Enriquez RDN [address] [place] [place] [address] [phone] 06/28/2019 Nurse Only Ancillary [place], Nurse Annual Wellness Scenery [address] [place] [address] [phone] 07/08/2019 [facility] [address] [place] [address] [phone] 07/09/2019 Office Visit Internal Medicine Alex Pinto MD [address] [place] [address] [phone] Health Maintenance Due Date Last Done Comments [...] Vaccines (2 - Td) 06/04/2028 06/04/2018, 02/28/2009 PNEUMOCOCCAL ADULT 65 YRS AND OVER Completed 03/28/2015, 05/21/2006 MENINGOCOCCAL (MENACTRA) Aged Out No longer eligible based on patient's age to complete this topic documented as of this encounter Implants Not on filedocumented as of this encounter Visit Diagnoses Diagnosis HTN, goal below 130/80 Unspecified essential hypertension documented in this encounter Advance Directives Documents on File Type Date Recorded Patient Painter Sign Maintenance Expl anation Advanced Directive Advanced Directive Advanced Directive Advanced Directive Advanced Directive Advanced Directive Advanced Directive Advanced Directive Advanced Directive Advanced Directive Advanced Directive Advanced Directive Advanced Directive Advanced Directive Advanced Directive
--- OUTSIDE RECORDS SUMMARY | 2023-06-18 03:36 | External Medical Summary | Summary of Care ---
Author Name Unknown Organization [place] [address] Care Team Providers Care Project Manager Interior Design Name Role Phone Marcela Pinto MD Primary Care Provider [phone] Reason for Visit * Reason Comments Med Request Encounter Details Date Type Department Care Team Description 06/24/2019 Telephone General Internal Medicine [facility] [address] [place] [address] Marcela Pinto MD [address] [place], [place] [id number] Med Request Allergies Active Allergy Reactions Severity [...] Tab 3 09/07/2018 Active Nebulizers (NEBULIZER COMPRESSOR) [facility] Inhale via nebulizer. Use as directed. Please [...] Active dilTIAZem HCl ER Beads 360 MG [id number]:HTN, goal below 130/80 TAKE 1 CAPSULE BY [...] Hypoxemia 10/08/2011 10/30/2015 Genetic Sleep Disorder Research Other*[id number] 07/25/2011 05/15/2016 Diverticulitis of colon 07/25/2011 01/06/20 [...] encounter Miscellaneous Notes * Addendum Note - Nita Alarcon CPhT - 06/28/2019 10:24 AM EDT Addended by: NITA ALARCON on: 06/28/2019 10:24 AM Modules accepted: Orders * Telephone Encounter - Nita Alarcon CPhT - 06/28/2019 10:23 AM EDT [email or web address] is calling to check on status of albuterol sulfate NEB SOLN Rx. Please FAX RX TO [phone]. Pt can be reached at the following number(s): Patient Phone Numbers Thank you, Nita Alarcon Senior Scrum Master Pharmacy Refill Call Center 06/28/2019, 10:23 AM * Addendum Note - Renetta Gu LPN - 06/27/2019 1:21 PM EDT Addended by: RENETTA GU on: 06/27/2019 01:21 PM Modules accepted: Orders * Telephone Encounter - Jaymie Mccoy CPhT - 06/25/2019 9:53 AM EDT Med 4 home checking status ThanksJaymie Senior Scrum Master Pharmacy Refill Call Center 06/25/2019, 9:53 AM * Telephone Encounter - Mary Freeman PHARM Tech - 06/24/2019 11:25 AM EDT [address] calling stating they had faxed request for albuterol sulfate (PROVENTIL) (2.5 MG/3ML) 0.083% nebulizer solution. Nathaly from [address] requesting Rx faxed back to Nathaly can be reached at [phone] Thank you, aMry Masters Senior Scrum Master [employer] [facility] 06/24/2019, 11:29 AM documented in this encounter Plan of Treatment Upcoming Encounters Date Type Specialty Care Team Description 06/28/2019 Nurse Only Ancillary Nurse Heather Annual Wellness Scenery [address] [place] [address] [phone] 07/08/2019 Office Visit Podiatry [facility] [address] [place] [address] [phone] 07/09/2019 Office Visit Internal Medicine Marcela Pinto MD [address] [place] [address] [phone] 07/13/2019 Nutrition Services Gastroenterology Nita Enriquez RDN [address] [place] [address] [phone] 06/06/2020 Imaging Radiology Health Maintenance Due Date [...] Documents on File Type Date Recorded Patient Restaurant Assistant Manager Expl anation Advanced Directive Advanced Directive Advanced Directive Advanced Directive Advanced Directive Advanced Directive Advanced Directive Advanced Directive Advanced Directive Advanced Directive Advanced Directive Advanced Directive Advanced Directive Advanced Directive Advanced Directive
--- OUTSIDE RECORDS SUMMARY | 2023-06-18 03:36 | External Medical Summary | Summary of Care ---
Author Name Unknown Organization [place] [address] Care Team Providers Care Communication Assistant Name Role Phone Marcela Pinto MD Primary Care Provider [phone] Reason for Visit * Reason Comments Information Encounter Details Date Type Department Care Team Description 04/14/2019 Telephone General Internal Medicine [facility] [address] [place] [address] Marcela Pinto MD 200 [place], [place] [id number] Information Allergies Active Allergy Reactions Severity Noted Date Comments Valsartan 07/10/2010 Enalapril 05/21/2006 Escitalopram Oxalate Nausea/vomiting 10/11/2009 Nauseated Iodinated Diagnostic Agents Nausea/vomiting 05/2010 IV Contrast Lisinopril 05/21/2006 Metoprolol Tartrate 11/18/2006 Made pulse low [place] Oil-Black Currant-Vit E 07/10/2010 Verapamil 03/21/2004 Bupropion Hcl 10/30/2009 Makes pt sick in the stomach documented as of this encounter (statuses as of 04/16/2019) Medications Medication Sig Dispensed Refills Start Date [...] Tab 3 8 Active Nebulizers (NEBULIZER COMPRESSOR) [facility] Inhale via nebulizer. Use as directed. Please give tubing to use with it. 1 Each 1 9 Active ondansetron ODT (ZOFRAN) 8 MG TBDPIndications:David sea DISSOLVE 1 TABLET ON TONGUE EVERY 8 HOURS NEEDED FOR NAUSEA 60 Tab 5 9 Active RaNITidine HCl 300 MG Tablet Take 0.5 Tabs by mouth at bedtime. 90 Tab 1 9 Active DilTIAZem HCl ER Beads 360 MG CH93Riliyfpqorg:HTN , goal below 130/80 TAKE 1 CAPSULE EVERY DAY 90 Cap 1 9 Active glimepiride (AMARYL) 4 MG TabletIndications:T ype 2 diabetes mellitus with hemoglobin A1c goal of less than 7.5% (HCC) Take 0.5 Tabs by mouth daily before breakfast. 90 Tab 3 9 Active zafirlukast (ACCOLATE) 20 MG TabletIndications:A sthma with severity to be determined TAKE 1 TABLET BY MOUTH EVERY DAY 90 Tab 0 9 Active dicyclomine (BENTYL) 20 MG TabletIndications:C hronic constipation TAKE 1 TABLET BY MOUTH EVERY DAY 90 Tab 2 9 Active Terazosin HCl 2 MG Capsule TAKE 1 CAPSULE BY MOUTH EVERY DAY 90 Cap 1 9 Active omeprazole (PRILOSEC) 20 MG CPDRIndications:Isc hemic colitis (HCC) TAKE 1 CAPSULE BY MOUTH TWICE A DAY 180 Cap 1 9 Active HYDROcodone-acetami nophen 5-325 mg per tab 5-325 MG per tabletIndications:G eneralized osteoarthritis Take 1 Tab by mouth every 6 hours as needed for Pain, Mild. 120 Tab 0 9 Active COMBIVENT RESPIMAT 20-100 MCG/ACT InhalerIndications: [...] other day 60 Tab 11 9 Active ferrous sulfate (FEOSOL) 325 (65 FE) MG Tablet Take 325 mg by mouth daily with breakfast. 60 Tab 11 8 04/16/20 19 Discontinued documented as of this encounter (statuses as of 04/16/2019) Active Problems Problem Noted Date Body mass [...] as of this encounter (statuses as of 04/16/2019) Resolved Problems Problem Noted Date Resolved Date [...] Hypoxemia 10/08/2011 10/30/2015 Genetic Sleep Disorder Research Other*[id number] 07/25/2011 05/15/2016 Diverticulitis of colon 07/25/2011 01/06/20 [...] as of this encounter (statuses as of 04/16/2019) Immunizations Name Administration Dates Next Due Hepatitis [...] Addendum Note - Belia Gu LPN - 04/16/2019 9:07 AM EDT Addended by: BELIA GU on: 04/16/2019 09:07 AM Modules accepted: Orders * Telephone Encounter - Belia Gu LPN - 04/16/2019 9:06 AM EDT Patient is aware and will comply. Thank you * Telephone Encounter - Marcela Pinto MD - 04/14/2019 5:08 PM EDT Pt should take one pill ferrous sulfate or vitron C every other day. * Telephone Encounter - Marcela Pinto MD - 04/14/2019 5:07 PM EDT ----- Message from Nita Enriquez RDN sent at 04/14/2019 1:50 PM EDT ----- Dr. Pinto, Patient has a question re: her Iron supplement. She is questioning how much she should take a day. Please advise. Her information is not matching what is stated in chart at time of this review. Nita Foley documented in this encounter Plan of Treatment Upcoming Encounters Date Type Specialty Care Team Description 06/01/2019 Imaging Radiology 06/15/2019 Nutrition Services Gastroenterology Nita Enriquez, AKIKO [address] [place] [address] [phone] 06/28/2019 Nurse Only Ancillary [place], Nurse Annual Wellness Scenery [address] [place] [address] [phone] 07/08/2019 Office Visit Podiatry Region, [facility] [address] [place] [address] [phone] 07/09/2019 Office Visit Internal Medicine Marcela Pinto MD [address] [place] [address] [phone] Health Maintenance Due Date Last Done Comments Influenza Vaccine (FLU shot) (#1) 2019 06/16/2018, [...] on File Type Date Recorded 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
--- OUTSIDE RECORDS SUMMARY | 2023-06-18 03:36 | External Medical Summary | Summary of Care ---
Author Name Unknown Organization [place] [address] Care Team Providers Care Metal Off Bearer Name Role Phone Alex Pinto MD Primary Care Provider [phone] Reason for Visit * Reason Comments Medication Refill Encounter Details Date Type Department Care Team Description 04/20/2019 Refill General Internal Medicine [facility] [address] [place], [place] [id number] Alex Pinto MD [address] [place] [address] [phone] Asthma with severity to be determined Allergies Active Allergy Reactions Severity Noted Date Comments Valsartan 07/10/2010 Enalapril 05/21/2006 Escitalopram Oxalate Nausea/vomiting 10/11/2009 Nauseated Iodinated Diagnostic Agents Nausea/vomiting 05/2010 IV Contrast Lisinopril 05/21/2006 Metoprolol Tartrate 11/18/2006 Made pulse low [place] Oil-Black Currant-Vit E 07/10/2010 Verapamil 03/21/2004 Bupropion Hcl 10/30/2009 Makes pt sick in the stomach documented as of this encounter (statuses as of 04/20/2019) Medications Medication Sig Dispensed Refills Start Date [...] Active DilTIAZem HCl ER Beads 360 MG IO63Ltpwauafcir:HTN , goal below 130/80 TAKE 1 CAPSULE [...] mouth daily. 90 Tab 1 9 Active zafirlukast (ACCOLATE) 20 MG TabletIndications:A sthma with severity to be determined TAKE 1 TABLET BY MOUTH EVERY DAY 90 Tab 0 9 04/20/20 19 Discontinued documented as of this encounter (statuses as of 04/20/2019) Active Problems Problem Noted Date Body mass [...] as of this encounter (statuses as of 04/20/2019) Resolved Problems Problem Noted Date Resolved Date [...] Hypoxemia 10/08/2011 10/30/2015 Genetic Sleep Disorder Research Other*[id number] 07/25/2011 05/15/2016 Diverticulitis of colon 07/25/2011 01/06/20 [...] as of this encounter (statuses as of 04/20/2019) Immunizations Name Administration Dates Next Due Hepatitis [...] Telephone Encounter - Alex Pinto MD - 04/20/2019 12:13 PM EDT Signed Prescriptions: Disp Refills zafirlukast (ACCOLATE) 20 MG Tablet 90 Tab 1 Sig: Take 1 Tab by mouth daily. Authorizing Provider: ALEX PINTO * Telephone Encounter - Vilma Galindo LPN - 04/20/2019 11:17 AM EDT Pending Prescriptions: Disp Refills zafirlukast (ACCOLATE) 20 MG Tablet 90 Tab 1 Sig: Take 1 Tab by mouth daily. * Telephone Encounter - Elenita Dallas OSA - 04/20/2019 11:01 AM EDT REQUESTING 90 DAY SUPPLY Last Office Visit: 04/06/2019 Next Office Visit: 07/09/2019 Scheduled Provider(s): Alex Pinto MD If no future appointments scheduled, and last appointment is greater than a year ago, please schedule patient for a follow-up appointment Last date the medication was ordered: Patient Phone Numbers Labs: Lab Results Component [...] [address] [place] [address] [phone] 06/28/2019 Nurse Only Ancillary Park, Nurse Annual Wellness Scenery [address] [place] [address] [phone] 07/08/2019 Office Visit Podiatry Region, [facility] [address] [place] [address] [phone] 07/09/2019 Office Visit Internal Medicine Alex Pinto MD [address] [place] [address] [phone] Health Maintenance Due Date Last Done Comments [...] on File Type Date Recorded 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
--- OUTSIDE RECORDS SUMMARY | 2023-06-18 03:36 | External Medical Summary | Summary of Care ---
Author Name Unknown Organization [place] [address] Care Team Providers Care Aoc Operations Intelligence Chief Name Role Phone Marcela Pinto MD Primary Care Provider [phone] Encounter Details Date Type Department Care Team Description 04/14/2019 Telephone General Internal Medicine [facility] [address] [place] [address] Marcela Pinto MD [address] [place], [place] [id number] Allergies Active Allergy Reactions Severity Noted Date Comments Valsartan 07/10/2010 Enalapril 05/21/2006 Escitalopram Oxalate Nausea/vomiting 10/11/2009 Nauseated Iodinated Diagnostic Agents Nausea/vomiting 05/2010 IV Contrast Lisinopril 05/21/2006 Metoprolol Tartrate 11/18/2006 Made pulse low [place] Oil-Black Currant-Vit E 07/10/2010 Verapamil 03/21/2004 Bupropion Hcl 10/30/2009 Makes pt sick in the stomach documented as of this encounter (statuses as of 04/14/2019) Medications Medication Sig Dispensed Refills Start Date [...] - [place]) USE TO TEST BLOOD SUGAR 4 TIMES [...] DAYS NEEDED FOR CONSTIPATION 0 11/26/2017 Active ferrous sulfate (FEOSOL) 325 (65 FE) MG Tablet Take 325 mg by mouth daily with breakfast. 60 Tab 11 03/05/2018 Active KLOR-CON M20 20 MEQ TBCRIndications:HTN, goal [...] at bedtime. 90 Tab 1 11/25/2018 Active DilTIAZem HCl ER Beads 360 MG [id number]:HTN, goal below 130/80 TAKE 1 CAPSULE EVERY DAY 90 Cap 1 11/30/2018 Active glimepiride (AMARYL) 4 MG TabletIndications:Ty pe 2 diabetes mellitus with hemoglobin A1c goal of less than 7.5% (HCC) Take 0.5 Tabs by mouth daily before breakfast. 90 Tab 3 01/05/2019 Active zafirlukast (ACCOLATE) 20 MG TabletIndications:As thma with severity to be determined TAKE 1 TABLET BY MOUTH EVERY DAY 90 Tab 0 01/22/2019 Active dicyclomine (BENTYL) 20 MG TabletIndications:Ch ronic constipation TAKE 1 TABLET BY MOUTH EVERY DAY 90 Tab 2 02/08/2019 Active Terazosin HCl 2 MG Capsule TAKE 1 CAPSULE BY MOUTH EVERY DAY 90 Cap 1 03/12/2019 Active omeprazole (PRILOSEC) 20 MG CPDRIndications:Isch emic colitis (HCC) TAKE 1 CAPSULE BY MOUTH TWICE A DAY 180 Cap 1 03/22/2019 Active HYDROcodone-acetamin ophen 5-325 mg per tab 5-325 MG per tabletIndications:Ge neralized osteoarthritis Take 1 Tab by mouth every 6 hours as needed for Pain, Mild. 120 Tab 0 03/29/2019 Active COMBIVENT RESPIMAT 20-100 MCG/ACT InhalerIndications:A sthma [...] at bedtime. 30 Tab 5 04/06/2019 Active documented as of this encounter (statuses as of 04/14/2019) Active Problems Problem Noted Date Body mass [...] as of this encounter (statuses as of 04/14/2019) Resolved Problems Problem Noted Date Resolved Date [...] Hypoxemia 10/08/2011 10/30/2015 Genetic Sleep Disorder Research Other*[id number] 07/25/2011 05/15/2016 Diverticulitis of colon 07/25/2011 01/06/20 [...] as of this encounter (statuses as of 04/14/2019) Immunizations Name Administration Dates Next Due Hepatitis [...] Gastroenterology Nita Enriquez RDN [address] [place] [address] [phone] 06/28/2019 Nurse Only Ancillary Park, Nurse Annual Wellness Scenery [address] [place] [address] [phone] 07/08/2019 Office Visit Podiatry [facility] [address] [place] [address] [phone] 07/09/2019 Office Visit Internal Medicine Marcela Pinto MD [address] [place] [address] [phone] Health Maintenance Due Date Last Done Comments [...] Documents on File Type Date Recorded Patient File Keeper Expl anation Advanced Directive Advanced Directive Advanced Directive Advanced Directive Advanced Directive Advanced Directive Advanced Directive Advanced Directive Advanced Directive Advanced Directive Advanced Directive Advanced Directive Advanced Directive Advanced Directive Advanced Directive
--- OUTSIDE RECORDS SUMMARY | 2023-06-18 03:36 | External Medical Summary | Summary of Care ---
Author Name Unknown Organization [place] [address] Care Team Providers Care Reliability Engineer Name Role Phone Marcela Pinto MD Primary Care Provider [phone] Reason for Visit * Reason Comments case management Encounter Details Date Type Department Care Team Description 06/02/2019 Snowblower Mechanic Care Coordination [address] [place] [address] Sigrid Montano RN [address] [place] [address] [phone] COPD, moderate (HCC)*; Asthma with severity to be determined; Type 2 diabetes mellitus with hemoglobin A1c goal of less than 7.5% (HCC); Irritable bowel syndrome with constipation Allergies Active Allergy Reactions Severity Noted Date Comments Valsartan 07/10/2010 Enalapril 05/21/2006 Escitalopram Oxalate Nausea/vomiting 10/11/2009 Nauseated Iodinated Diagnostic Agents Nausea/vomiting 05/2010 IV Contrast Lisinopril 05/21/2006 Metoprolol Tartrate 11/18/2006 Made pulse low [place] Oil-Black Currant-Vit E 07/10/2010 Verapamil 03/21/2004 Bupropion Hcl 10/30/2009 Makes pt sick in the stomach documented as of this encounter (statuses as of 06/02/2019) Medications Medication Sig Dispensed Refills Start Date [...] than 7.0% ([facility]) USE TO TEST BLOOD SUGAR [...] mouth daily. 90 Tab 1 04/20/2019 Active HYDROcodone-acetamin ophen 5-325 mg per tab 5-325 MG per tabletIndications:Ge neralized osteoarthritis Take 1 Tab by mouth every 6 hours as needed for Pain, Mild. 120 Tab 0 05/17/2019 Active dilTIAZem HCl ER Beads 360 MG [id number]:HTN, goal below 130/80 TAKE 1 CAPSULE BY MOUTH EVERY DAY 90 Cap 1 05/27/2019 Active documented as of this encounter (statuses as of 06/02/2019) Active Problems Problem Noted Date Body mass [...] as of this encounter (statuses as of 06/02/2019) Resolved Problems Problem Noted Date Resolved Date [...] Hypoxemia 10/08/2011 10/30/2015 Genetic Sleep Disorder Research Other*[id number] 07/25/2011 05/15/2016 Diverticulitis of colon 07/25/2011 01/06/20 [...] as of this encounter (statuses as of 06/02/2019) Immunizations Name Administration Dates Next Due Hepatitis [...] Progress Notes * Sigrid Montano RN - 06/02/2019 3:45 PM EDT Case Management Assessment 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 COPD, moderate (HCC) J44.9 Allergic rhinitis J30.9 Nocturnal hypoxia G47.34 Sleep apnea, obstructive G47.33 Incisional hernia K43.2 ACEI/ARB contraindicated [id number] HTN, goal below 140/90 I10 Hyperlipidemia with target LDL less than 100 E78.5 Controlled substance agreement signed Z79.899 Type 2 diabetes mellitus with hemoglobin A1c goal of less than 7.5% ([facility]) E11.9 Hypercalcemia E83.52 Elevated plasma metanephrines R79.89 Irritable bowel syndrome with constipation K58.1 Ischemic colitis (HCC) K55.9 Body mass index (BMI) of 40.0 to 44.9 in adult (HCC) Z68.41 sees Nutrition and Weight Mgmt Hospital admission 03/22-03/28 for diverticular bleeding/acute diverticulitis/anemia with 2 unites [facility] at [facility] GI: for brar diverticulosis, use fiber supplement daily and Colace daily; no need for new colonoscopy 03/22/2019--A1C 6.7 improved from 01/12/2019 7.1 HM: needsO2 assessment for copd Is this call for a hospital, residential or rehab facility discharge to home? No S: Reports: denies any rectal bleeding states that she is chronically constipated Diabetes--checking three times day; this AM 125; denies any <70 or >200 over past week; her sxs of lows are ringing R ear, funny in stomach and she will check reports Right ear broken ear drum all of her life breathing--"not good at all" if she has any activity; uses inhalers and nebs; she reports being fine if just sitting. She has discussed with lung doctor, heart doctor, and PCP. Heart--denies chest pain or racing heart beat Edema--ankles swell quite a bit, this is chronic for her, goes away overnight voids without difficulty denies any falls to have Left eye cataract removed in July, Right eye is fine Weight gain: does not weigh daily, states weight is stable at 245 lbs, hoping to lose some with Nutrition & Weight Mgmt Increased edema: chronic bilateral ankle edema end of day, goes away overnight, unchanged Chest pain denies Increased shortness of breath: denies Chills / Sweats / Fever: denies fever Fall: denies any falls since last Care Management encounter Appetite: denies nausea, vomiting, burning, decreased appetite Bowel: chronic constipation Bladder: denies problems Chronic Pain: low back pain, managed with hydrocodone Does Patient have Type 2 DM ? Yes. Does this patient take sulfonylureas and/or basal insulin? Yes. 1. Do you know what the symptoms of hypoglycemia are? yes 2. How often can you tell by your symptoms if your blood sugar is low? Always 3. In a typical week, how many times will your blood sugar go below 70 mg/dL? rare O: Phone visit for Annual case management assessment. Medications: reviewed epic and denies any changes, takes all medications as prescribed. and denies side effects A: Patient Centered Prioritized Goals: Patient and caregiver demonstrate basic understanding of their disease process. Exacerbations have been prevented, minimized or reduced in severity. Patient/ caregiver demonstrates adherence to treatment plan. Identified Barriers: Patient/caregiver's lack of understanding of their condition and prescribed treatment plan and Older than 70 years FUNCTIONAL STATUS: (Definition - assess ability to patient to manage their own care, includes evaluation of activities of daily living, and instrumental activities of daily living, and cognitive abilities status) ADL'S - Needs Assistance With: N/A as pt is independent IADL'S - Needs Assistance With: Routine Housework Cognitive and Mental Health: denies problems, alert and oriented x 3 and able to communicate, understand instructions, process information. P: Snowblower Mechanic Interventions: Reviewed role of correctional casework specialist and provided contact information Reviewed medications -- no changes Reviewed upcoming appointments Reviewed COPD and asthma symptom management and when to report -- encouraged patient to call whenever she starts rescue kit Reviewed diabetes goal numbers and symptoms of [id number] Discussed living will/mPOA, [employer] Wishes form sent SMAP sent Follow up in 3 months with COPD surveillance call then per primary correctional casework specialist PCP Notified of enrollment in CM/HM program: No SNP Member? No Re-evaluation of plan of care and progress towards goals achievement: Plan to follow-up as indicated by primary correctional casework specialist with note forwarded for review, instructed to call Snowblower Mechanic or Primary Care Provider with change in symptoms or as needed before next follow-up, verbalizes understanding and agrees with plan. Sigrid Montano RN Outpatient Snowblower Mechanic Covering for Cici Gama RN CCM documented in this encounter Plan of Treatment Upcoming Encounters Date Type Specialty Care Team Description 06/15/2019 Nutrition Services Gastroenterology Nita Enriquez RDN [address] [place] [address] [place] [address] [phone] 06/28/2019 Nurse Only Ancillary [place], Nurse Annual Wellness Scenery [address] [place] [address] [phone] 07/08/2019 [facility] [address] [place] [address] [place] [address] [phone] 07/09/2019 Office Visit Internal Medicine Marcela Pinto MD [address] [place] [address] [phone] 06/06/2020 Imaging Radiology Health Maintenance Due Date [...] of this encounter Visit Diagnoses Diagnosis COPD, moderate (HCC)- Primary Chronic airway obstruction, not elsewhere classified Asthma with severity to be determined Type 2 diabetes mellitus with hemoglobin A1c goal of less than 7.5% (HCC) Irritable bowel syndrome with constipation Irritable bowel syndrome documented in this encounter Advance Directives Documents on File Type Date Recorded Patient Senior Licensing Manager Expl anation Advanced Directive Advanced Directive Advanced Directive Advanced Directive Advanced Directive Advanced Directive Advanced Directive Advanced Directive Advanced Directive Advanced Directive Advanced Directive Advanced Directive Advanced Directive Advanced Directive Advanced Directive
--- OUTSIDE RECORDS SUMMARY | 2023-06-18 03:36 | External Medical Summary | Summary of Care ---
Author Name Unknown Organization [place] [address] Care Team Providers Care Director Software Development Name Role Phone Marcela Pinto MD Primary Care Provider [phone] Encounter Details Date Type Department Care Team Description 04/01/2019 Scan Encounter [facility]ology, [facility] [address] [facility] [address] Zulay Eagle [facility] [address] [facility] [place] [address] <No scans attached> Allergies Active Allergy Reactions Severity Noted Date Comments Valsartan 07/10/2010 Enalapril 05/21/2006 Escitalopram Oxalate Nausea/vomiting 10/11/2009 Nauseated Iodinated Diagnostic Agents Nausea/vomiting 05/2010 IV Contrast Lisinopril 05/21/2006 Metoprolol Tartrate 11/18/2006 Made pulse low [place] Oil-Black Currant-Vit E 07/10/2010 Verapamil 03/21/2004 Bupropion Hcl 10/30/2009 Makes pt sick in the stomach documented as of this encounter (statuses as of 04/12/2019) Medications Medication Sig Dispensed Refills Start Date [...] Active DilTIAZem HCl ER Beads 360 MG [id number]:HTN, goal below 130/80 TAKE 1 CAPSULE EVERY [...] mouth daily. 90 Cap 0 03/31/2019 Active documented as of this encounter (statuses as of 04/12/2019) Active Problems Problem Noted Date Body mass [...] as of this encounter (statuses as of 04/12/2019) Resolved Problems Problem Noted Date Resolved Date [...] Hypoxemia 10/08/2011 10/30/2015 Genetic Sleep Disorder Research Other*[id number] 07/25/2011 05/15/2016 Diverticulitis of colon 07/25/2011 01/06/20 [...] as of this encounter (statuses as of 04/12/2019) Immunizations Name Administration Dates Next Due Hepatitis [...] No Sex Assigned at Date Recorded Female Job Start Date Occupation Industry Not on file Not on file Not on file Travel History Travel Start Travel End documented as of this encounter Plan of Treatment Upcoming Encounters Date Type Specialty Care Team Description 04/14/2019 Nutrition Services Gastroenterology Nita Enriquez, IWONAN [address] [place] [address] [place] [address] [phone] 06/01/2019 Imaging Radiology 06/28/2019 Nurse Only Ancillary Park, Nurse Annual Wellness Scenery [address] [place] [address] [phone] 07/08/2019 Office Visit Podiatry [facility] [address] [place] [address] [place] [address] [phone] 07/09/2019 Office Visit Internal Medicine Marcela Pinto MD [address] [place] [address] [phone] Health Maintenance Due Date Last Done Comments [...] 65 YRS AND OVER Completed 03/28/2015, 05/21/2006 Influenza Vaccine (FLU shot) Completed 01/2018, 07/30/2017, 08/15/2016, Additional history exists MENINGOCOCCAL (MENACTRA) Aged Out No longer eligible based on patient's age to complete this topic documented as of this encounter Implants Not on filedocumented as of this encounter Advance Directives Documents on File Type Date Recorded Patient Provider Relations Representative Expl anation Advanced Directive Advanced Directive Advanced Directive Advanced Directive Advanced Directive Advanced Directive Advanced Directive Advanced Directive Advanced Directive Advanced Directive Advanced Directive Advanced Directive Advanced Directive Advanced Directive Advanced Directive
--- OUTSIDE RECORDS SUMMARY | 2023-06-18 03:36 | External Medical Summary | Summary of Care ---
Author Name Unknown Organization [place] [address] Care Team Providers Care Content Checker Name Role Phone Marcela Pinto MD Primary Care Provider [phone] Reason for Visit * Reason Comments Med Request Encounter Details Date Type Department Care Team Description 06/24/2019 Telephone General Internal Medicine [facility] [address] [place] [address] Marcela Pinto MD [address] [place], [place] [id number] Med Request Allergies Active Allergy Reactions Severity Noted Date Comments Valsartan 07/10/2010 Enalapril 05/21/2006 Escitalopram Oxalate Nausea/vomiting 10/11/2009 Nauseated Iodinated Diagnostic Agents Nausea/vomiting 05/2010 IV Contrast Lisinopril 05/21/2006 Metoprolol Tartrate 11/18/2006 Made pulse low [place] Oil-Black Currant-Vit E 07/10/2010 Verapamil 03/21/2004 Bupropion Hcl 10/30/2009 Makes pt sick in the stomach documented as of this encounter (statuses as of 06/27/2019) Medications Medication Sig Dispensed Refills Start Date [...] Tab 3 09/07/2018 Active Nebulizers (NEBULIZER COMPRESSOR) [facility] Inhale via nebulizer. Use as directed. Please [...] Active dilTIAZem HCl ER Beads 360 MG [id number]:HTN, goal below 130/80 TAKE 1 CAPSULE BY MOUTH EVERY DAY 90 Cap 1 05/27/2019 Active HYDROcodone-acetamin ophen 5-325 mg per tab 5-325 MG per tabletIndications:Ge neralized osteoarthritis Take 1 Tab by mouth every 6 hours as needed for Pain, Mild. 120 Tab 0 06/23/2019 Active documented as of this encounter (statuses as of 06/27/2019) Active Problems Problem Noted Date Body mass [...] as of this encounter (statuses as of 06/27/2019) Resolved Problems Problem Noted Date Resolved Date [...] Hypoxemia 10/08/2011 10/30/2015 Genetic Sleep Disorder Research Other*[id number] 07/25/2011 05/15/2016 Diverticulitis of colon 07/25/2011 01/06/20 [...] as of this encounter (statuses as of 06/27/2019) Immunizations Name Administration Dates Next Due Hepatitis [...] Addendum Note - Belia Gu LPN - 06/27/2019 1:21 PM EDT Addended by: BELIA GU on: 06/27/2019 01:21 PM Modules accepted: Orders * Telephone Encounter - Jaymie Mccoy CPhT - 06/25/2019 9:53 AM EDT Med 4 home checking status Thanks, Jaymie Mccoy Electrical Contacts Adjuster Pharmacy Refill Call Center 06/25/2019, 9:53 AM * Telephone Encounter - Mary Freeman PHARM Tech - 06/24/2019 11:25 AM EDT [address] calling stating they had faxed request for albuterol sulfate (PROVENTIL) (2.5 MG/3ML) 0.083% nebulizer solution. Nathaly from [address] requesting Rx faxed back to Nathaly can be reached at [phone] Thank you, Mary Masters Electrical Contacts Adjuster [facility] Telepharmacy 06/24/2019, 11:29 AM documented in this encounter Plan of Treatment Upcoming Encounters Date Type Specialty Care Team Description 06/28/2019 Nurse Only Ancillary Heather Nurse Annual Wellness Scenery [address] [place] [address] [phone] 07/08/2019 Office Visit Podiatry Region, [place] [address] [place] [address] [place] [address] [phone] 07/09/2019 Office Visit Internal Medicine Marcela Pinto MD [address] [facility], [place] [address] [phone] 07/13/2019 Nutrition Services Gastroenterology Nita Enriquez, RDN [address] [place] [address] [place] [address] [phone] 06/06/2020 Imaging Radiology Health Maintenance Due Date [...] Documents on File Type Date Recorded Patient Right Of Way Clearer Expl anation Advanced Directive Advanced Directive Advanced Directive Advanced Directive Advanced Directive Advanced Directive Advanced Directive Advanced Directive Advanced Directive Advanced Directive Advanced Directive Advanced Directive Advanced Directive Advanced Directive Advanced Directive
--- OUTSIDE RECORDS SUMMARY | 2023-06-18 03:36 | External Medical Summary | Summary of Care ---
Author Name Unknown Organization [place] [address] Care Team Providers Care Distribution Analyst Name Role Phone Alex Pinto MD Primary Care Provider [phone] Reason for Referral * Medication Prior Authorization (Routine) Status Reason Specialty Diagnoses / Procedures Re ferred By Contact Referred To Contact Closed Diagnoses Generalized osteoarthritis Alex Pinto MD [address] [place] [address] Reason for Visit * Reason Comments Medication Refill Encounter Details Date Type Department Care Team Description 06/23/2019 Refill General Internal Medicine [facility] [address] [place] [address] Alex Pinto MD [address] [place] [address] [phone] GENERAL OSTEOARTHROSIS Allergies Active Allergy Reactions Severity Noted Date Comments Valsartan 07/10/2010 Enalapril 05/21/2006 Escitalopram Oxalate Nausea/vomiting 10/11/2009 Nauseated Iodinated Diagnostic Agents Nausea/vomiting 05/2010 IV Contrast Lisinopril 05/21/2006 Metoprolol Tartrate 11/18/2006 Made pulse low [place] Oil-Black Currant-Vit E 07/10/2010 Verapamil 03/21/2004 Bupropion Hcl 10/30/2009 Makes pt sick in the stomach documented as of this encounter (statuses as of 06/23/2019) Medications Medication Sig Dispensed Refills Start Date [...] [facility]) USE TO TEST BLOOD SUGAR 4 [...] Active dilTIAZem HCl ER Beads 360 MG [id number]:HTN , goal below 130/80 TAKE 1 CAPSULE [...] for Pain, Mild. 120 Tab 0 9 06/23/20 19 Discontinued documented as of this encounter (statuses as of 06/23/2019) Active Problems Problem Noted Date Body mass [...] as of this encounter (statuses as of 06/23/2019) Resolved Problems Problem Noted Date Resolved Date [...] Hypoxemia 10/08/2011 10/30/2015 Genetic Sleep Disorder Research Other*[id number] 07/25/2011 05/15/2016 Diverticulitis of colon 07/25/2011 01/06/20 [...] as of this encounter (statuses as of 06/23/2019) Immunizations Name Administration Dates Next Due Hepatitis [...] Telephone Encounter - Alex Pinto MD - 06/23/2019 11:16 AM EDT Signed Prescriptions: Disp Refills HYDROcodone-acetaminophen 5-325 mg per tab*120 Tab0 Sig: Take 1 Tab by mouth every 6 hours as needed for Pain, Mild. Authorizing Provider: ALEX PINTO * Telephone Encounter - Nicole Saeed LPN - 06/23/2019 10:57 AM EDT Pending Prescriptions: Disp Refills HYDROcodone-acetaminophen 5-325 mg per ta*120 Tab0 Sig: Take 1 Tab by mouth every 6 hours as needed for Pain, Mild. Last Office Visit: 04/06/2019 Next Office Visit: 07/09/2019 Scheduled Provider(s): Alex Pinto MD Last date the medication was ordered: 05/17/19 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 COPD, moderate ([facility]) J44.9 Allergic rhinitis J30.9 Nocturnal hypoxia G47.34 Sleep apnea, obstructive G47.33 Incisional hernia K43.2 ACEI/ARB contraindicated [id number] HTN, goal below 140/90 I10 Hyperlipidemia with target LDL less than 100 E78.5 Controlled substance agreement signed Z79.899 Type 2 diabetes mellitus with hemoglobin A1c goal of less than 7.5% ([facility]) E11.9 Hypercalcemia E83.52 Elevated plasma metanephrines R79.89 Irritable bowel syndrome with constipation K58.1 Ischemic colitis ([facility]) K55.9 Body mass index (BMI) of 40.0 to 44.9 in adult ([facility]) Z68.41 Labs: CREATININE-OUTSIDE LAB(MG/DL) Jessica Dt/Tm Resulted Value Status 03/22/19 04/02/19 0.85 FINAL POTASSIUM-OUTSIDE LAB(MMOL) Jessica Dt/Tm Resulted Value Status 03/22/19 04/02/19 3.8 FINAL TSH - OUTSIDE LAB(MCIU/ML) Jessica Dt/Tm Resulted Value Status 01/12/19 01/13/19 1.320 FINAL LDL (CALCULATED)-OUTSIDE LAB(MG/DL) Jessica Dt/Tm Resulted Value Status 03/22/19 04/02/19 57.40 FINAL 01/12/19 01/13/19 88.60 FINAL ALT(U/L) Jessica Dt/Tm Resulted Value Status 07/27/18 11:32A 07/28/18 9* FINAL Hemoglobin AIC Results: HEMOGLOBIN, [id number] LAB(%) Jessica Dt/Tm Resulted Value Status 03/22/19 04/02/19 6.7* FINAL 01/12/19 01/13/19 7.0* FINAL HEMOGLOBIN, A1C(%) Jessica Dt/Tm Resulted Value Status 07/27/18 11:32A 07/28/18 6.8* FINAL documented in this encounter Plan of Treatment Upcoming Encounters Date Type Specialty Care Team Description 06/28/2019 Nurse Only Ancillary Nurse Heather Annual Wellness [facility] [address] [facility] [place] [address] [phone] 07/08/2019 Office Visit Podiatry Region, [facility] [address] [place] [address] [place] [address] 07/09/2019 Office Visit Internal Medicine Alex Pinto MD [address] [facility] [place] [address] [phone] 07/13/2019 Nutrition Services Gastroenterology Nita Enriquez RDN [address] [place] [address] [place] [address] [phone] 06/06/2020 Imaging Radiology Health Maintenance Due Date [...] Documents on File Type Date Recorded Patient Sas Architect Expl anation Advanced Directive Advanced Directive Advanced Directive Advanced Directive Advanced Directive Advanced Directive Advanced Directive Advanced Directive Advanced Directive Advanced Directive Advanced Directive Advanced Directive Advanced Directive Advanced Directive Advanced Directive
--- OUTSIDE RECORDS SUMMARY | 2023-06-18 03:36 | External Medical Summary | Summary of Care ---
Author Name Unknown Organization [place] [address] Care Team Providers Care Ui Developer Name Role Phone Marcela Pinto MD Primary Care Provider [phone] Reason for Visit * Reason Comments Weight Management Medical Management Encounter Details Date Type Department Care Team Description 04/14/2019 Nutrition Services Nutrition & Weight Management, [facility] [address] [facility] [place] [address] Nita Enriquez, AKIKO [address] [place] [address] [facility] [place] [address] Type 2 diabetes mellitus with hemoglobin A1c goal of less than 7.5% ([facility])*; Obesity, Class III, BMI 40-49.9 (morbid obesity) ([facility]); Hyperlipidemia with target LDL less than 100; HTN, goal below 140/90 Allergies Active Allergy Reactions Severity Noted Date Comments Valsartan 07/10/2010 Enalapril 05/21/2006 Escitalopram Oxalate Nausea/vomiting 10/11/2009 Nauseated Iodinated Diagnostic Agents Nausea/vomiting 05/2010 IV Contrast Lisinopril 05/21/2006 Metoprolol Tartrate 11/18/2006 Made pulse low [place] Oil-Black Currant-Vit E 07/10/2010 Verapamil 03/21/2004 Bupropion [...] Active DilTIAZem HCl ER Beads 360 MG [id number]:HTN , goal below 130/80 TAKE 1 CAPSULE [...] Hypoxemia 10/08/2011 10/30/2015 Genetic Sleep Disorder Research Other*[id number] 07/25/2011 05/15/2016 Diverticulitis of colon 07/25/2011 01/06/20 [...] Sign Reading Time Taken Comments Blood Pressure 124/74 04/14/2019 1:25 PM EDT Pulse 68 04/14/2019 1:25 PM EDT Temperature - - Respiratory Rate - - Oxygen Saturation - - Inhaled Oxygen Concentration - - Weight 111.4 kg (245 lb 11.2 oz) 04/14/2019 1:25 PM EDT Height - - Body Mass Index 37.36 04/06/2019 2:20 PM EDT documented in this encounter Patient Instructions * Patient Instructions* Nita Enriquez RDN - 04/14/2019 2:03 PM EDT PATIENT GOALS: 1) Patient to restart using manual food diaries to aid with slow continuous weight loss. Patient tocontinue to zone in on portion sizes. 2) Continue lifestyle activity as tolerated. 3) Patient decrease fluid intake down to 70 ounces a day. (Patient to decrease decaf coffee by 2 cups) documented in this encounter Progress Notes * Nita Enriquez RDN - 04/14/2019 1:45 PM EDT GI/NUTRITION FOLLOW UP [facility] Patient was identified at visit by name and date. PATIENT: Nina Harrington DATE: 04/14/19 NUTRITION ASSESSMENT Diagnosis Code for referral for nutrition counseling: Type 2 diabetes mellitus with hemoglobin A1c goal of less than 7.5% ([facility]) [E11.9] - Primary Obesity, Class III, BMI 40-49.9 (morbid obesity) ([facility]) [E66.01] Hyperlipidemia with target LDL less than 100 [E78.5] HTN, goal below 140/90 [I10] SUBJECTIVE: Patient here today for return visit nutrition counseling for weight management. Describes typical diet history/24 hr recall Breakfast: Mini wheats with 2 percent Snacks: Chris Crackers with peanut butter Lunch: Sandwiches Dinner: A cooked meal with a meat, starch and a vegetables. Drinks: 75-100 ounces of water Patient drinks 3-4 cups a day (black coffee) Patient trying to cut down on caffeine. Progress on goals from the previous month: Patient stated that she got off track since last visit CURRENT WT: 245 lbs Ht: 5'5" BMI: 41 LAST VISIT WT: 245 lbs 10/20/2018 WEIGHT CHANGES: Remained the same since last visit. MNT: Calorie Controlled Diet, 2 Gram Sodium Diet Patient is interested in the following treatment options for obesity: medical management. LABS: Component Latest Ref Rng & Units 03/31/2019 WBC 4.00 - 10.80 K/uL 13.97 (H) RBC 3.85 - 5.15 M/uL 3.93 HGB 12.0 - 15.3 g/dL 10.8 (L) HCT 36.0 - 45.2 % 34.9 (L) MCV 81.5 - 97.5 fL 88.8 MCH 27.0 - 34.0 pg 27.5 MCHC 32.0 - 36.0 g/dL 30.9 (L) RDW 11.5 - 15.5 % 15.2 PLATELET COUNT 140 - 400 K/uL 391 MPV 6.6 - 11.1 fL 9.0 NEUTS 40 - 75 % 61.3 LYMPHS 18 - 42 % 24.7 MONOS 1 - 11 % 10.2 EOS 0 - 6 % 3.5 BASOS 0 - 2 % 0.3 ABS. NEUTS 1.8 - 7.7 K/uL 8.57 (H) ABS. LYMPHS 1.0 - 4.8 K/uL 3.45 ABS. MONOS 0.0 - 1.1 K/uL 1.42 (H) ABS. EOS 0.0 - 0.7 K/uL 0.49 ABS. BASOS 0.0 - 0.2 K/uL 0.04 PHYSICAL ACTIVITY: Light DIET RECALL/FOOD LOGS INDICATE: Large portions High calorie, high fat and/or high sugar selections NUTRITION DIAGNOSIS Food and nutrition related knowledge deficit in relation to calorie intake exceeding calorie expenditure as evidenced by diagnosis of Obesity. NUTRITION INTERVENTION PATIENT GOALS: 1) Patient to restart using manual food diaries to aid with slow continuous weight loss. Patient tocontinue to zone in on portion sizes. 2) Continue lifestyle activity as tolerated. 3) Patient decrease fluid intake down to 70 ounces a day. (Patient to decrease decaf coffee by 2 cups) EXPECTED OUTCOMES: Demonstrated interest in learning. Expect compliance with diet recommendations. NUTRITION MONITORING Monitor weight loss progress and progress toward goals set at this visit. PLAN: Patient scheduled to return in 2 months; dietitian phone # given for future reference. 30 minute return visit Nita Enriquez RDN documented in this encounter Nursing Notes * Dionte Billy LPN - 04/14/2019 1:26 PM EDT Patient identified by full name and date of Chief Complaint Patient presents with Weight Management Medical Management documented in this encounter Plan of Treatment Upcoming Encounters Date Type Specialty Care Team Description 06/01/2019 Imaging Radiology 06/15/2019 Nutrition Services Gastroenterology Nita Enriquez RDN [address] [place] [address] [place] [address] [phone] 06/28/2019 Nurse Only Ancillary Heather, Nurse [facility] [address] [facility] [address] [phone] 07/08/2019 Office Visit Podiatry [facility] [address] [place] [address] [place] [address] [phone] 07/09/2019 Office Visit Internal Medicine Pinto, Marcela N, MD [address] [place] [address] [phone] Health Maintenance Due Date Last Done Comments [...] goal of less than 7.5% (HCC)- Primary Obesity, Class III, BMI 40-49.9 (morbid obesity) (HCC) Morbid obesity Hyperlipidemia with target LDL less than 100 Other and unspecified hyperlipidemia HTN, goal below 140/90 Unspecified essential hypertension documented in this encounter Advance Directives Documents on File Type Date Recorded Patient Property Maintenance Supervisor Expl anation Advanced Directive Advanced Directive Advanced Directive Advanced Directive Advanced Directive Advanced Directive Advanced Directive Advanced Directive Advanced Directive Advanced Directive Advanced Directive Advanced Directive Advanced Directive Advanced Directive Advanced Directive
--- OUTSIDE RECORDS SUMMARY | 2023-06-18 03:36 | External Medical Summary | Summary of Care ---
Author Name Unknown Organization [place] [address] Care Team Providers Care Dressmaker Garment Fitter Name Role Phone Alex Pinto MD Primary Care Provider [phone] Reason for Referral * Medication Prior Authorization (Routine) Status Reason Specialty Diagnoses / Procedures Re ferred By Contact Referred To Contact Closed Diagnoses Generalized osteoarthritis Alex Pinto MD [address] [place] [address] Reason for Visit * Reason Comments Medication Refill Encounter Details Date Type Department Care Team Description 05/12/2019 Refill General Internal Medicine [facility] [address] [place] [address] Alex Pinto MD [address] [place] [address] [phone] GENERAL OSTEOARTHROSIS Allergies Active Allergy Reactions Severity Noted Date Comments Valsartan 07/10/2010 Enalapril 05/21/2006 Escitalopram Oxalate Nausea/vomiting 10/11/2009 Nauseated Iodinated Diagnostic Agents Nausea/vomiting 05/2010 IV Contrast Lisinopril 05/21/2006 Metoprolol Tartrate 11/18/2006 Made pulse low [place] Oil-Black Currant-Vit E 07/10/2010 Verapamil 03/21/2004 Bupropion Hcl 10/30/2009 Makes pt sick in the stomach documented as of this encounter (statuses as of 05/17/2019) Medications Medication Sig Dispensed Refills Start Date [...] of less than 7.0% ([facility]) USE TO TEST BLOOD SUGAR 4 TIMES [...] Active DilTIAZem HCl ER Beads 360 MG [id number]:HTN , goal below 130/80 TAKE 1 CAPSULE EVERY DAY 90 Cap 1 9 Active glimepiride (AMARYL) 4 MG TabletIndications:T ype 2 diabetes mellitus with hemoglobin A1c goal of less than 7.5% ([facility]) Take 0.5 Tabs by mouth daily before [...] for Pain, Mild. 120 Tab 0 9 05/12/20 19 Discontinued documented as of this encounter (statuses as of 05/17/2019) Active Problems Problem Noted Date Body mass [...] as of this encounter (statuses as of 05/17/2019) Resolved Problems Problem Noted Date Resolved Date [...] Hypoxemia 10/08/2011 10/30/2015 Genetic Sleep Disorder Research Other*[id number] 07/25/2011 05/15/2016 Diverticulitis of colon 07/25/2011 01/06/20 [...] as of this encounter (statuses as of 05/17/2019) Immunizations Name Administration Dates Next Due Hepatitis [...] Telephone Encounter - Alex Pinto MD - 05/17/2019 11:12 AM EDT Signed Prescriptions: Disp Refills HYDROcodone-acetaminophen 5-325 mg per tab*120 Tab0 Sig: Take 1 Tab by mouth every 6 hours as needed for Pain, Mild. Authorizing Provider: ALEX PINTO * Telephone Encounter - Gabe Jo [facility] - 05/13/2019 11:49 AM EDT Pending Prescriptions: Disp Refills HYDROcodone-acetaminophen 5-325 mg per ta*120 Tab0 Sig: Take 1 Tab by mouth every 6 hours as needed for Pain, Mild. * Telephone Encounter - Gabe Jo RP - 05/13/2019 11:48 AM EDT I have reviewed the patients controlled substance dispensing history in the Prescription Drug Monitoring Program in compliance with the [facility] regulations before prescribing a controlled substance. PDMP checked on 05/13/2019. Patient requesting: norco 5/325, filled 03/29/19, for #120 for a 30 day supply. Other recent controlled medication fills: None Last Office Visit: 04/06/2019 Next Office Visit: 07/09/2019 Scheduled Provider(s): Alex Pinto MD Date medication is due for refill: 04/27/19 Toxicology results: Results for orders placed or [...] Results Review. Please approve if appropriate. Thanks, Gabe Jo, PharmD Clinical Pharmacist TelePharmacy 05/13/2019 11:48 AM * Telephone Encounter - Lindsey Quintana CPhT - 05/12/2019 2:10 PM EDT Pending Prescriptions: Disp Refills HYDROcodone-acetaminophen [...] appointment Last date the medication was ordered: 03/29/19 Patient Phone Numbers Labs: Lab Results Component [...] [address] [place] [address] [place] [address] [phone] 06/28/2019 Nurse Only Ancillary [place], Nurse Annual Wellness Scenery [address] [place] [address] [phone] 07/08/2019 Office Visit Podiatry Region, [facility] [address] [place] [address] [place] [address] [phone] 07/09/2019 Office Visit Internal Medicine Alex Pinto MD [address] [place] [address] [phone] Health Maintenance Due Date Last Done Comments [...] Documents on File Type Date Recorded Patient Crop Supervisor Expl anation Advanced Directive Advanced Directive Advanced Directive Advanced Directive Advanced Directive Advanced Directive Advanced Directive Advanced Directive Advanced Directive Advanced Directive Advanced Directive Advanced Directive Advanced Directive Advanced Directive Advanced Directive
--- OUTSIDE RECORDS SUMMARY | 2023-06-18 03:36 | External Medical Summary | Summary of Care ---
Author Name Unknown Organization [place] [address] Care Team Providers Care Hook Up Name Role Phone Marcela Pinto MD Primary Care Provider [phone] Reason for Visit * Reason Comments Med Request Encounter Details Date Type Department Care Team Description 06/24/2019 Telephone General Internal Medicine [facility] [address] [address] Marcela Pinto MD [address] [place], [place] [id number] Med Request Allergies Active Allergy Reactions Severity Noted Date Comments Valsartan 07/10/2010 Enalapril 05/21/2006 Escitalopram Oxalate Nausea/vomiting 10/11/2009 Nauseated Iodinated Diagnostic Agents Nausea/vomiting 05/2010 IV Contrast Lisinopril 05/21/2006 Metoprolol Tartrate 11/18/2006 Made pulse low [place] Oil-Black Currant-Vit E 07/10/2010 Verapamil 03/21/2004 Bupropion Hcl 10/30/2009 Makes pt sick in the stomach documented as of this encounter (statuses as of 06/26/2019) Medications Medication Sig Dispensed Refills Start Date [...] Tab 3 09/07/2018 Active Nebulizers (NEBULIZER COMPRESSOR) [facility] Inhale via nebulizer. Use as directed. Please [...] Active dilTIAZem HCl ER Beads 360 MG [id number]:HTN, goal below 130/80 TAKE 1 CAPSULE BY MOUTH EVERY DAY 90 Cap 1 05/27/2019 Active HYDROcodone-acetamin ophen 5-325 mg per tab 5-325 MG per tabletIndications:Ge neralized osteoarthritis Take 1 Tab by mouth every 6 hours as needed for Pain, Mild. 120 Tab 0 06/23/2019 Active documented as of this encounter (statuses as of 06/26/2019) Active Problems Problem Noted Date Body mass [...] as of this encounter (statuses as of 06/26/2019) Resolved Problems Problem Noted Date Resolved Date [...] Hypoxemia 10/08/2011 10/30/2015 Genetic Sleep Disorder Research Other*[id number] 07/25/2011 05/15/2016 Diverticulitis of colon 07/25/2011 01/06/20 [...] as of this encounter (statuses as of 06/26/2019) Immunizations Name Administration Dates Next Due Hepatitis [...] Med home checking status Thanks, Jaymie Mccoy Job Training Specialist Pharmacy Refill Call Center 06/25/2019, 9:53 AM * Telephone Encounter - Mary Freeman PHARM Tech - 06/24/2019 11:25 AM EDT [id number] calling stating they had faxed request for albuterol sulfate (PROVENTIL) (2.5 MG/3ML) 0.083% nebulizer solution. Nathaly from [facility] requesting Rx faxed back to Nathaly can be reached at [phone] Thank you, Mary Masters Job Training Specialist [email or web address] 06/24/2019, 11:29 AM documented in this encounter Plan of Treatment Upcoming Encounters Date Type Specialty Care Team Description 06/28/2019 Nurse Only Ancillary Heather, Nurse Annual Wellness Scenery [address] [place] [address] [phone] 07/08/2019 Office Visit Podiatry Region, [place] [address] [place] [place] [address] 07/09/2019 Office Visit Internal Medicine Marcela Pinto MD [address] [place] [address] [phone] 07/13/2019 Nutrition Services Gastroenterology Yohn, Nita Abel, RDN [address] [place] [place] [address] [phone] 06/06/2020 Imaging Radiology Health Maintenance Due Date [...] Documents on File Type Date Recorded Patient Hoop Maker Machine Expl anation Advanced Directive Advanced Directive Advanced Directive Advanced Directive Advanced Directive Advanced Directive Advanced Directive Advanced Directive Advanced Directive Advanced Directive Advanced Directive Advanced Directive Advanced Directive Advanced Directive Advanced Directive
--- OUTSIDE RECORDS SUMMARY | 2023-06-18 03:37 | External Medical Summary | Summary of Care ---
Author Name Unknown Organization [place] [address] Care Team Providers Care Psychiatric Security Nurse Name Role Phone Marcela Pinto MD Primary Care Provider [phone] Encounter Details Date Type Department Care Team Description 03/22/2019 Scan Encounter Unspecified Department <No scans attached> Allergies Active Allergy Reactions Severity Noted Date Comments Valsartan 07/10/2010 Enalapril 05/21/2006 Escitalopram Oxalate Nausea/vomiting 10/11/2009 Nauseated Iodinated Diagnostic Agents Nausea/vomiting 05/2010 IV Contrast Lisinopril 05/21/2006 Metoprolol Tartrate 11/18/2006 Made pulse low [place] Oil-Black Currant-Vit E 07/10/2010 Verapamil 03/21/2004 Bupropion Hcl 10/30/2009 Makes pt sick in the stomach documented as of this encounter (statuses as of 04/02/2019) Medications Medication Sig Dispensed Refills Start Date [...] EVERY DAY 30 Cap 5 02/13/2013 Active XOPENEX HFA 45 MCG/ACT IN AERO TAKE 2 PUFFS EVERY 6 TO 8 HOURS NEEDED 12 08/08/2014 Active LUMIGAN 0.01 % OP SOLN INSTILL [...] sulfate (FEOSOL) 325 (65 FE) MG Tablet Every other day 60 Tab 11 03/05/2018 Active KLOR-CON M20 20 MEQ TBCRIndications:HTN , [...] 1 07/17/2018 Active atorvaSTATin (LIPITOR) 40 MG TabletIndications:H yperlipidemia [...] Active DilTIAZem HCl ER Beads 360 MG [id number]:HTN , goal below 130/80 TAKE 1 CAPSULE EVERY DAY 90 Cap 1 11/30/2018 Active glimepiride (AMARYL) 4 MG TabletIndications:T ype 2 diabetes mellitus with hemoglobin A1c goal of less than 7.5% (HCC) Take 0.5 Tabs by mouth daily before breakfast. 90 Tab 3 01/05/2019 Active zafirlukast (ACCOLATE) 20 MG TabletIndications:A sthma with severity to be determined TAKE 1 TABLET BY MOUTH EVERY DAY 90 Tab 0 01/22/2019 Active dicyclomine (BENTYL) 20 MG TabletIndications:C hronic constipation TAKE 1 TABLET BY MOUTH EVERY DAY 90 Tab 2 02/08/2019 Active Terazosin HCl 2 MG Capsule TAKE 1 CAPSULE BY MOUTH EVERY DAY 90 Cap 1 03/12/2019 Active omeprazole (PRILOSEC) 20 MG CPDRIndications:Isc hemic colitis (HCC) TAKE 1 CAPSULE BY MOUTH TWICE A DAY 180 Cap 1 03/22/2019 Active documented as of this encounter (statuses as of 04/02/2019) Active Problems Problem Noted Date Body mass [...] as of this encounter (statuses as of 04/02/2019) Resolved Problems Problem Noted Date Resolved Date [...] Hypoxemia 10/08/2011 10/30/2015 Genetic Sleep Disorder Research Other*[id number] 07/25/2011 05/15/2016 Diverticulitis of colon 07/25/2011 01/06/20 [...] as of this encounter (statuses as of 04/02/2019) Immunizations Name Administration Dates Next Due Hepatitis [...] Comments No Sex Assigned at Date Recorded Not on file Job Start Date Occupation Industry Not on file Not on file Not on file Travel History Travel Start Travel End documented as of this encounter Plan of Treatment Upcoming Encounters Date Type Specialty Care Team Description 04/06/2019 Office Visit Internal Medicine Marcela Pinto MD [address] [place] [address] [phone] 04/09/2019 Office Visit Internal Medicine Marcela Pinto MD [address] [place] [address] [address] [phone] 04/14/2019 Nutrition Services Gastroenterology Yohn, Nita Abel, RDN [address] [place] [address] [place] [address] [phone] 06/01/2019 Imaging Radiology 06/28/2019 Nurse Only Ancillary Heather, Annual Wellness Scenery [address] [place] [address] [phone] 07/08/2019 Office Visit Podiatry Region, [facility] [address] [place] [place] [address] [phone] Health Maintenance Due Date Last Done Comments DIABETES-HGBA1C EVERY 6 MONTHS 07/14/2019 01/12/2019, 07/27/2018, 01/14/2018, Additional history exists DIABETES-EYE EXAM 09/14/2019 09/14/2018, , 12/31/2013, Additional history exists DIABETES-URINE MICROALBUMIN EVERY 12 MONTHS 12/26/2019 12/25/2018, 07/27/2018, 03/15/2018, Additional history exists DIABETES-FOOT EXAM 01/06/2020 01/05/2019, [...] on File Type Date Recorded Patient English Composition Instructor Expl anation Advanced Directive Advanced Directive Advanced Directive Advanced Directive Advanced Directive Advanced Directive Advanced Directive Advanced Directive Advanced Directive Advanced Directive Advanced Directive Advanced Directive Advanced Directive Advanced Directive Advanced Directive
--- OUTSIDE RECORDS SUMMARY | 2023-06-18 03:37 | External Medical Summary | Summary of Care ---
Author Name Unknown Organization [place] [address] Care Team Providers Care Platform Man Name Role Phone Marcela Pinto MD Primary Care Provider [phone] Reason for Visit * Reason Comments Follow Up 3 month routine nail care Encounter Details Date Type Department Care Team Description 03/30/2019 Office Visit Podiatry [facility] [address] [place] [address] Chantel Moore DPM [address] [place] [address] [place] [id number] Type 2 diabetes mellitus with hemoglobin A1c goal of less than 7.5% ([facility])* Allergies Active Allergy Reactions Severity Noted Date Comments Valsartan 07/10/2010 Enalapril 05/21/2006 Escitalopram Oxalate Nausea/vomiting 10/11/2009 Nauseated Iodinated Diagnostic Agents Nausea/vomiting 05/2010 IV Contrast Lisinopril 05/21/2006 Metoprolol Tartrate 11/18/2006 Made pulse low [place] Oil-Black Currant-Vit E 07/10/2010 Verapamil 03/21/2004 Bupropion Hcl 10/30/2009 Makes pt sick in the stomach documented as of this encounter (statuses as of 03/30/2019) Medications Medication Sig Dispensed Refills Start Date [...] ([facility]) USE TO TEST BLOOD SUGAR 4 [...] FOR EDEMA 30 Tab 11 05/25/2018 Active COMBIVENT RESPIMAT 20-100 MCG/ACT InhalerIndications:A sthma with severity to be determined,COPD, moderate (HCC) TAKE 1 PUFF BY MOUTH 4 TIMES A DAY 4 g 11 07/02/2018 Active albuterol sulfate (PROVENTIL) (2.5 MG/3ML) 0.083% [...] Active DilTIAZem HCl ER Beads 360 MG [id number], goal below 130/80 TAKE 1 CAPSULE EVERY [...] EVERY DAY 90 Cap 1 03/12/2019 Active predniSONE (DELTASONE) 20 MG TabletIndications:As thma with severity to be determined 2 tablets daily for 5 days then 1 tablet daily 15 Tab 0 03/16/2019 Active omeprazole (PRILOSEC) 20 MG CPDRIndications:Isch emic colitis (HCC) TAKE 1 CAPSULE BY MOUTH TWICE A DAY 180 Cap 1 03/22/2019 Active HYDROcodone-acetamin ophen 5-325 mg per tab 5-325 MG per tabletIndications:Ge neralized osteoarthritis Take 1 Tab by mouth every 6 hours as needed for Pain, Mild. 120 Tab 0 03/29/2019 Active ciprofloxacin (CIPRO) 500 MG Tablet Take 500 mg by mouth 2 times a day. 0 Active metroNIDAZOLE (FLAGYL) 500 MG Tablet Take 500 mg by mouth 3 times a day. 0 Active documented as of this encounter (statuses as of 03/30/2019) Active Problems Problem Noted Date Body mass [...] as of this encounter (statuses as of 03/30/2019) Resolved Problems Problem Noted Date Resolved Date [...] Hypoxemia 10/08/2011 10/30/2015 Genetic Sleep Disorder Research Other*[id number] 07/25/2011 05/15/2016 Diverticulitis of colon 07/25/2011 01/06/20 [...] as of this encounter (statuses as of 03/30/2019) Immunizations Name Administration Dates Next Due Hepatitis [...] as of this encounter Progress Notes * Chantel Moore DPM - 03/30/2019 11:21 AM EDT Podiatry Established Patient Note [facility] Name: Nina Harrington : 1940 Date: 03/30/2019 CHIEF COMPLAINT: Diabetic Nail Care HISTORY OF PRESENT ILLNESS: This patient is a 78 year old female who presents today for diabetic nail care. She is a diabetic. She denies any pain to her feet. She denies any other complaints at todays visit. Past Medical History: Diagnosis Date ACEI/ARB contraindicated Asthma Carpal tunnel syndrome DM type 2, goal: symptom mgmt (HCC) Generalized osteoarthritis HTN, goal below 140/90 Mixed dyslipidemia Past Surgical History: Procedure Laterality Date APPENDECTOMY W/OTHER PROCEDURE 1960 when removed gall bladder COLONOSCOPY, DIAGNOSTIC (RECTUM) 05/29/2016 poor prep, diverticulosis/inpt [facility] COLONOSCOPY, DIAGNOSTIC (RECTUM) 06/05/2017 diverticulosis, repeat 3 yrs/[facility] COLONOSCOPY, DIAGNOSTIC (RECTUM) 02/28/2018 adenomatous polyps, diverticulosis, repeat 3 yrs / [facility] COLONOSCOPY, W/BIOPSY 03/20/12 hyperplastic polyps rpt 3 years. EGD, FLEXIBLE, DIAGNOSTIC 04/29/2014 normal/inpt [facility] EGD, FLEXIBLE, DIAGNOSTIC 05/29/2016 fundic submucosal mass/inpt [facility] EGD, FLEXIBLE,W/ENDOSCOPIC US 11/08/2016 inflammatory changes, stomach lesion, repeat EUS 1.5 yrs/[facility] EGD, FLEXIBLE,W/ENDOSCOPIC US 05/01/2018 stromal cell (smooth muscle) neoplasm, CBD dilation, repeat 2 yrs (needs OV prior)/[facility] INCISIONAL HERNIA REPAIR, LAP, REDUCIBLE 09/29/12 Repair of incarcerated supraumbilical (incisional) hernia with Atrium mesh 09/29/12 LIGATE/CUT OVIDUCT(S) REMOVAL OF TONSILS, AGE 12+ age 11 REMOVE GALLBLADDER 1960 SIGMOIDOSCOPY, DIAGNOSTIC 04/29/2014 stool in rectum/inpt [facility] SMALL BOWEL ENDOSCOPY, REMOVE FOREIGN BODY mesh from prior hernia surgery, wrapped around small bowel. 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 metroNIDAZOLE (FLAGYL) 500 MG Tablet Take 500 mg by mouth 3 times a day. HYDROcodone-acetaminophen 5-325 mg per tab 5-325 MG per tablet Take 1 Tab by mouth every 6 hours asneeded for Pain, Mild. 120 Tab 0 omeprazole (PRILOSEC) 20 MG CPDR TAKE 1 CAPSULE BY MOUTH TWICE A DAY 180 Cap 1 predniSONE (DELTASONE) 20 MG Tablet 2 tablets daily for 5 days then 1 tablet daily 15 Tab 0 Terazosin HCl 2 MG Capsule TAKE 1 CAPSULE BY MOUTH EVERY DAY 90 Cap 1 dicyclomine (BENTYL) 20 MG Tablet TAKE 1 TABLET BY MOUTH EVERY DAY 90 Tab 2 zafirlukast (ACCOLATE) 20 MG Tablet TAKE 1 TABLET BY MOUTH EVERY DAY 90 Tab 0 glimepiride (AMARYL) 4 MG Tablet Take 0.5 Tabs by mouth daily before breakfast. 90 Tab 3 DilTIAZem HCl ER Beads 360 MG CP24 TAKE 1 CAPSULE EVERY DAY 90 Cap 1 RaNITidine HCl 300 MG Tablet Take 0.5 [...] WORSENING ASTHMA. J45.909, J44.9 225 mL 1 COMBIVENT RESPIMAT 20-100 MCG/ACT Inhaler TAKE 1 PUFF BY MOUTH 4 TIMES A DAY 4 g 11 furosemide (LASIX) 40 MG Tablet TAKE 1 TABLET BY MOUTH DAILY NEEDED FOR EDEMA 30 Tab 11 KLOR-CON M20 20 MEQ TBCR TAKE 1 TABLET BY MOUTH DAILY 90 Tab 1 ferrous sulfate (FEOSOL) 325 (65 FE) MG Tablet Every other day 60 Tab 11 [facility] SENNA 8.6 MG Tablet TAKE 2 TABLETS BY MOUTH EVERY EVENING FOR 10 DAYS NEEDED FOR CONSTIPATION 0 Multiple Vitamins-Minerals (ONE DAILY MULTIVITAMIN WOMEN) TABS one pill each day aspirin enteric coated 81 MG TBEC Take 1 Tab by mouth daily. 100 Tab 3 Glucose Blood (YEIMY CONTOUR TEST) STRP USE TO TEST BLOOD SUGAR 4 TIMES A DAY FOR DIAGNOSIS CODE OFE11.9 100 Strip 5 polyethylene glycol 3350 (MIRALAX) [...] DROP BY TOPICAL ROUTE EVERY BEDTIME 4 XOPENEX HFA 45 MCG/ACT IN AERO TAKE 2 PUFFS EVERY 6 TO 8 HOURS NEEDED 12 SPIRIVA HANDIHALER 18 MCG IN CAPS INHALE 1 CAPSULE VIA HAND HELD INHALER ONCE DAILY AT THE SAME TIME EVERY DAY 30 Cap 5 LANCETS MISC Use as directed to test blood sugar once daily--Dx code 250.00 100 Each 3 VITAMIN D 1000 UNITS PO TABS one tablet daily ALLERGIES: Review of patient's allergies indicates: Allergen Reactions Diovan [Valsartan] Enalapril Escitalopram Oxalate Nausea/vomiting Nauseated Iodinated Diagnostic Agents Nausea/vomiting IV Contrast Lisinopril Metoprolol Tartrate Made pulse low [place] Oil-Black Currant-Vit E Verapamil Wellbutrin [Bupropion Hcl] Makes pt sick in the stomach REVIEW OF SYSTEMS: CONSTITUTIONAL: No change in weight, No weakness, No fatigue and No fevers, sweats, or chills EYE: No recent significant change in vision and No eye pain, redness, discharge EARS: No ear pain and No recent change in hearing PULMONARY: No cough, sputum, or hemoptysis and No recent change in breathing CARDIOVASCULAR: No chest pain, No shortness of breath and No syncope EXTREMITIES: No pain, redness or swelling on the joints SKIN/INTEGUMENTARY: No edema, No rash and No itching NEUROLOGIC: Normal balance, No headaches, No seizures and No weakness PSYCHIATRIC: No depression, No anxiety and No psychosis FOCUSED PODIATRIC EXAM: Vitals: There were no vitals filed for this visit. General: Patient is awake alert oriented to person place time. No apparent distress. Vascular: DP/PT pulses palpable, luz. CFT < 3 sec 1-5, luz. No edema noted, luz. Temperature gradient is normal warm to cold, luz. Neurologic: Protective sensation intact to light touch, luz. Sensation to sharp/dull is intact, luz. Proprioception is intact, luz. Vibratory sensation intact, luz. Protective sensation to 5.07 monofilament is intact, luz. There is no babinski response elicited, luz. Ankle clonus is absent, luz. Dermatological: Skin is normal in appearance with no open lesions or interdigital macerations, luz. Nails 1-5, luz are normal in thickness and elongated. Right hallux nail is thickened and dystrophic. Pedal hair is absent, luz. Musculoskeletal: No POP noted, luz. No pain with active or passive ROM of the digits or ankle joint, luz. Muscle strength is 5/5 for all muscle groups of the lower extremity, luz. DIAGNOSTIC STUDIES: None ASSESSMENT: 1. DM2 2. Onychomycosis, right hallux PLAN: - Discussed with pt the importance of maintaining a controlled blood sugar and checking her feet daily - Nails 1-5, luz were both sharply and mechanically debrided to appropriate level and thickness. - Continue wearing good, supportive shoes. - Pt to RTC in 3 months for further care. Instructed pt to call sooner with any problems or questions. Chantel Moore DPM documented in this encounter Nursing Notes * Shanita Velez LPN - 03/30/2019 11:13 AM EDT Pt presents for routine nail care. Edmnud Velez LPN documented in this encounter Plan of Treatment Upcoming Encounters Date Type Specialty Care Team Description 03/31/2019 Office Visit Gastroenterology Zulay Eagle DO [address] [facility] [place] [address] [phone] 04/06/2019 Office Visit Internal Medicine [facility] [address] [facility] [address] [phone] 04/09/2019 Office Visit Internal Medicine Marcela Pinto MD [address] [place], [place] [address] [phone] 04/14/2019 Nutrition Services Gastroenterology Nita Enriquez, RDN [address] [place] [address] [place] [address] [phone] 06/01/2019 Imaging Radiology 06/28/2019 Nurse Only Ancillary Nurse Heather [facility] [address] [place] [address] [phone] 07/08/2019 Office Visit Podiatry Region, [facility] [address] [place] [address] [place] [id number] Health Maintenance Due Date Last Done Comments [...] goal of less than 7.5% (HCC)- Primary documented in this encounter Advance Directives Documents on File Type Date Recorded 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
--- OUTSIDE RECORDS SUMMARY | 2023-06-18 03:37 | External Medical Summary | Summary of Care ---
Author Name Unknown Organization [place] [address] Care Team Providers Care Scrap Burner Name Role Phone Marcela Pinto MD Primary Care Provider [phone] Reason for Visit * Reason Comments Hospital Follow-Up Hospital Follow-Up Encounter Details Date Type Department Care Team Description 04/06/2019 Office Visit General Internal Medicine [facility] [address] [place], [place] [id number] Marcela Pinto MD [address] [place], [place] [id number] Hospital discharge follow-up*; Risk and functional assessment; Type 2 diabetes mellitus with hemoglobin A1c goal of less than 7.5% ([facility]); Sleep apnea, obstructive; HTN, goal below 140/90; COPD, moderate ([facility]); Acute midline low back pain without sciatica; HECTOR (generalized anxiety disorder) Allergies Active Allergy Reactions Severity Noted Date Comments Valsartan 07/10/2010 Enalapril 05/21/2006 Escitalopram Oxalate Nausea/vomiting 10/11/2009 Nauseated Iodinated Diagnostic Agents Nausea/vomiting 05/2010 IV Contrast Lisinopril 05/21/2006 Metoprolol Tartrate 11/18/2006 Made pulse low [place] Oil-Black Currant-Vit E 07/10/2010 Verapamil 03/21/2004 Bupropion Hcl 10/30/2009 Makes pt sick in the stomach documented as of this encounter (statuses as of 04/06/2019) Medications Medication Sig Dispensed Refills Start Date [...] DAYS NEEDED FOR CONSTIPATION 0 8 Active ferrous sulfate (FEOSOL) 325 (65 FE) MG Tablet Take 325 mg by mouth daily with breakfast. 60 Tab 11 8 Active KLOR-CON M20 20 MEQ TBCRIndications:HTN [...] determined,COPD, moderate ([facility]) USE ONE NEBULIZER TREATMENT TWICE A DAY NEEDED FOR WORSENING ASTHMA. J45.909, J44.9 225 mL 1 8 Active atorvaSTATin (LIPITOR) 40 MG TabletIndications:H yperlipidemia with target LDL less than 100 Take 1 Tab by mouth daily. 90 Tab 3 8 Active Nebulizers (NEBULIZER COMPRESSOR) [facility] Inhale via nebulizer. Use as directed. [...] Active DilTIAZem HCl ER Beads 360 MG [id number]:HTN , goal below 130/80 TAKE 1 CAPSULE EVERY DAY 90 Cap 1 9 Active glimepiride (AMARYL) 4 MG TabletIndications:T ype 2 diabetes mellitus with hemoglobin A1c goal of less than 7.5% ([facility]) Take 0.5 Tabs by mouth daily before [...] at bedtime. 30 Tab 5 9 Active XOPENEX HFA 45 MCG/ACT IN AERO TAKE 2 PUFFS EVERY 6 TO 8 HOURS NEEDED 12 4 04/06/20 19 Discontinued ciprofloxacin (CIPRO) 500 MG Tablet Take 500 mg by mouth 2 times a day. 0 04/06/20 19 Discontinued metroNIDAZOLE (FLAGYL) 500 MG Tablet Take 500 mg by mouth 3 times a day. 0 04/06/20 19 Discontinued Meloxicam 15 MG Tablet TAKE 1 TAB BY MOUTH DAILY. FOR PAIN. 11 9 04/06/20 19 Discontinued documented as of this encounter (statuses as of 04/06/2019) Active Problems Problem Noted Date Body mass [...] as of this encounter (statuses as of 04/06/2019) Resolved Problems Problem Noted Date Resolved Date [...] Hypoxemia 10/08/2011 10/30/2015 Genetic Sleep Disorder Research Other*[id number] 07/25/2011 05/15/2016 Diverticulitis of colon 07/25/2011 01/06/20 [...] as of this encounter (statuses as of 04/06/2019) Immunizations Name Administration Dates Next Due Hepatitis [...] Yes Alcohol Use Drinks/Week oz/Week Comments No Sex Assigned at Date Recorded Female 04/06/2019 2:19 PM E DT Job Start Date Occupation Industry Not on file Not on file Not on file Travel History Travel Start Travel End documented as of this encounter Last Filed Vital Signs Vital Sign Reading Time Taken Comments Blood Pressure 134/62 04/06/2019 2:20 PM EDT Pulse 80 04/06/2019 2:20 PM EDT Temperature 36.8 C (98.3 F) 04/06/2019 2:20 PM ED T Respiratory Rate 16 04/06/2019 2:20 PM EDT Oxygen Saturation - - Inhaled Oxygen Concentration - - Weight 112.9 kg (248 lb 12.8 oz) 04/06/2019 2:20 PM EDT Height 172.7 cm (5' 8") 04/06/2019 2:20 PM EDT Body Mass Index 37.83 04/06/2019 2:20 PM EDT documented in this encounter Patient Instructions * Patient Instructions* Renetta Gu LPN - 04/06/2019 2:19 PM EDT Patient Instructions - Fall Prevention [...] 10 times. Repeat this throughout the day. NeFit Steps Patient Education Copyright 2008 - 2010 Joceline [...] (TEDs)if you have edema Renetta Gu LPN 04/06/2019 Kegel Exercises Kegel exercises dont require special [...] Progress Notes * Marcela Pinto MD - 04/06/2019 2:38 PM EDT HPI: Nina Harrington is a 78 year old female with medical problems as listed below including asthma, COPD,nocturnal hypoxemia, on oxygen, osteoarthritis, anemia, history of for diabetes E: Bleeding and recurrent diverticulitis who presents with: Chief Complaint Patient presents with Hospital Follow-Up Pt is here for the hospital follow up. Chart reviewed from the hospital including admission note, Hand P, consult notes, labs, EKG, imaging and discharge note including discharge meds. Patient states she is feeling better since went back home. Pt was admitted to the hospital on 03/22/19 and was discharged on 03/28/19 . Admission Diagnosis : Diverticular bleeding, acute diverticulitis, anemia status post 2 units of blood transfusion at [facility]. Initially her wbc was normal, Hb 11 then it dropped to 9 andshe received 2 units. Last Hb 10. Feels slightly sob when low Hb. Follows with Dr. Bhatti. Reviewed all the work up. Follows with Dr. Meza. Gets anxiety, sleep issues. Discussed Trazodone. Pt has been followed up by case picker and specialists. 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 COPD, moderate (HCC) J44.9 Allergic rhinitis J30.9 Nocturnal hypoxia G47.34 Sleep apnea, obstructive G47.33 Incisional hernia K43.2 ACEI/ARB contraindicated [id number] HTN, goal below 140/90 I10 Hyperlipidemia with target LDL less than 100 E78.5 Controlled substance agreement signed Z79.899 Type 2 diabetes mellitus with hemoglobin A1c goal of less than 7.5% ([facility]) E11.9 Hypercalcemia E83.52 Elevated plasma metanephrines R79.89 Irritable bowel syndrome with constipation K58.1 Ischemic colitis (HCC) K55.9 Body mass index (BMI) of 40.0 to 44.9 in adult ([facility]) Z68.41 Current Outpatient Medications Medication Sig Dispense Refill docusate sodium (COLACE) 100 MG Capsule Take 1 Cap by mouth daily. 90 Cap 0 Meloxicam 15 MG Tablet TAKE 1 TAB BY MOUTH DAILY. FOR PAIN. 11 COMBIVENT RESPIMAT 20-100 MCG/ACT Inhaler TAKE 1 PUFF BY MOUTH 4 TIMES A DAY 4 g 11 HYDROcodone-acetaminophen 5-325 mg per tab 5-325 MG [...] mouth daily with breakfast. 60 Tab 11 [facility] S[facility] 8.6 MG [...] Contrast Lisinopril Metoprolol Tartrate Made pulse low U[place]da Oil-Black Currant-Vit E Verapamil Wellbutrin [Bupropion Hcl] [...] file Gets together: Not on file Attends buddhist service: Not on file Active member of [...] Lung Disorder Grandfather (Paternal) ?COPD vs asthma All system negative except as per hpi. OBJECTIVE: BP 134/62 | Pulse 80 | Temp (Src) 98.3 (Tympanic) | Resp 16 | Ht 5' 8" (1.727m) | Wt 248 lbs 12.8 oz (112.855kg) | BMI 37.83 kg/m | BSA 2.33 m PHYSICAL EXAM: HEENT: PERRLA, EOMI, anicteric sclera, b/l tympanic membrane is pearly white, no erythema, no pharyngeal erythema, no lymphadenopathy, neck supple CVS: RRR, no murmurs, rubs or gallops, s1 s 2normal. RESP: clear to auscultation, + wheezing No crackles ABD: soft, NT/ND EXT: no edema, cyanosis, peripheral pulses palpable bilaterally No large joint swelling, no redness, range of motion normal. Skin normal. Gait normal. Mood stable No focal weakness ASSESSMENT AND PLAN: Hospital discharge follow-up (Primary) - DISCH MED RECON CUR MED LIS Risk and functional assessment - PAT SCRN FOR FALL RISK - PRES OR ABS OF URIN INCONT - URIN INCONT PLAN OF CARE DOC Type 2 diabetes mellitus with hemoglobin A1c goal of less than 7.5% (HCC) On Amaryl. Watches diet. Sleep apnea, obstructive Uses oxygen 4 lit/min. HTN, goal below 140/90 Stable. COPD, moderate (HCC) Wheezing. Acute midline low back pain without sciatica - OPIOIDS/BENZO COMPLIANCE MONITORING W/INTERP; Future; Expected date: 04/06/2019 Follow Up: Return in 3 months (on 07/07/2019). Marcela Pinto MD . * Renetta Gu LPN - 04/06/2019 2:19 PM EDT Urinary Incontinence Plan of Care [...] (TEDs)if you have edema Renetta Gu LPN 04/06/2019 documented in this encounter Nursing Notes * Renetta Gu LPN - 04/06/2019 2:19 PM EDT Hospital follow up, states doesn't feel well Fatigue, problems breathing. documented in this encounter Plan of Treatment Upcoming Encounters Date Type Specialty Care Team Description 04/14/2019 Nutrition Services Gastroenterology Nita Enriquez RDN [address] [place] [address] [place] [address] [phone] 06/01/2019 Imaging Radiology 06/28/2019 Nurse Only Ancillary Heather, Nurse [facility] [address] [place] [address] [phone] 07/08/2019 Office Visit Podiatry [facility] [address] [place] [address] [place] [address] [phone] 07/09/2019 Office Visit Internal Medicine Mracela Pinto MD [address] [place] [address] [phone] Scheduled Orders Name Type Priority Associated Diagnoses Orde r Schedule OPIOIDS/BENZO COMPLIANCE MONITORING W/INTERP Lab Routine Acute midline low back pain without sciatica Expected: 04/06/2019 (Approximate), Expires: 07/07/2019 Health Maintenance Due Date Last Done Comments [...] Hospital discharge follow-up- Primary Other follow-up examination Risk and functional assessment Screening for unspecified condition Type 2 diabetes mellitus with hemoglobin A1c goal of less than 7.5% (HCC) Sleep apnea, obstructive Obstructive sleep apnea (adult) (pediatric) HTN, goal below 140/90 Unspecified essential hypertension COPD, moderate (HCC) Chronic airway obstruction, not elsewhere classified Acute midline low back pain without sciatica HECTOR (generalized anxiety disorder) Generalized anxiety disorder documented in this encounter Advance Directives Documents on File Type Date 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
--- OUTSIDE RECORDS SUMMARY | 2023-06-18 03:37 | External Medical Summary | Summary of Care ---
Author Name Unknown Organization [place] [address] Care Team Providers Care Kitchen Steward Name Role Phone Marcela Pinto MD Primary Care Provider [phone] Encounter Details Date Type Department Care Team Description 03/22/2019 Result Scan Unspecified Department <No scans attached> Allergies Active Allergy Reactions Severity Noted Date Comments Valsartan 07/10/2010 Enalapril 05/21/2006 Escitalopram Oxalate Nausea/vomiting 10/11/2009 Nauseated Iodinated Diagnostic Agents Nausea/vomiting 05/2010 IV Contrast Lisinopril 05/21/2006 Metoprolol Tartrate 11/18/2006 Made pulse low [place] Oil-Black Currant-Vit E 07/10/2010 Verapamil 03/21/2004 Bupropion [...] - MAR[place]) USE TO TEST BLOOD SUGAR 4 TIMES [...] Active DilTIAZem HCl ER Beads 360 MG [id number]:HTN , goal below 130/80 TAKE 1 CAPSULE [...] Hypoxemia 10/08/2011 10/30/2015 Genetic Sleep Disorder Research Other*[id number] 07/25/2011 05/15/2016 Diverticulitis of colon 07/25/2011 01/06/20 [...] Medicine Marcela Pinto MD [address] [place] [address] [phone] 04/09/2019 Office Visit Internal Medicine Marcela Pinto MD [address] [place] [place] [address] [phone] 04/14/2019 Nutrition Services Gastroenterology Yohn, Nita Abel, RDN [address] [place] [address] [place] [place] [address] [phone] 06/01/2019 Imaging Radiology 06/28/2019 Nurse Only Ancillary Nurse Heather [facility] [address] [place] [address] [phone] 07/08/2019 Office Visit Podiatry Region, [facility] [address] [place] [address] [place] [place] [address] [phone] Health Maintenance Due Date Last Done Comments [...] Date/Time Associated Diagnosis Comments OUTSIDE LAB RESULTS 03/22/2019 documented in this encounter Results * OUTSIDE LAB RESULTS (03/22/2019) Specimen Narrative Performed At documented in this encounter Advance Directives Documents on File Type Date Recorded 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
--- OUTSIDE RECORDS SUMMARY | 2023-06-18 03:37 | External Medical Summary ---
Author Name Unknown Address [address] [facility] [place] [address] Phone Organization K0G:[facility] Connie Doran [address] [facility] [place] [address] Laboratory Report Ordering Provider Test Date Status CALLI RICHARDS 03/31/2019 14:19:00 Final Observation Date Value Abnormality Reference Status WBC, Total 03/31/2019 14:34 13.97 Above high normal 4.00 -10.80 Final RBC 03/31/2019 14:34 3.93 3.85-5.15 Fin al Hemoglobin 03/31/2019 14:34 10.8 Below low normal 12.0- 15.3 Final HCT 03/31/2019 14:34 34.9 Below low normal 36.0-4 5.2 Final MCV 03/31/2019 14:34 88.8 81.5-97.5 Fin al MCH 03/31/2019 14:34 27.5 27.0-34.0 Fin al MCHC 03/31/2019 14:34 30.9 Below low normal 32.0-3 6.0 Final RDW 03/31/2019 14:34 15.2 11.5-15.5 Fin al Platelets 03/31/2019 14:34 391 140-400 Fin al MPV 03/31/2019 14:34 9.0 6.6-11.1 Fin al Segs 03/31/2019 14:34 61.3 40-75 Fin al Lymphs % 03/31/2019 14:34 24.7 18-42 Fin al Monos 03/31/2019 14:34 10.2 1-11 Fin al Eosinophils 03/31/2019 14:34 3.5 0-6 F inal Basos 03/31/2019 14:34 0.3 0-2 Fin al Absolute Segs 03/31/2019 14:34 8.57 Above high normal 1 .8-7.7 Final Lymphs, absolute 03/31/2019 14:34 3.45 1.0-4. 8 Final Monos, Abs 03/31/2019 14:34 1.42 Above high normal 0.0- 1.1 Final Eos, Abs 03/31/2019 14:34 0.49 0.0-0.7 Fin vijaya Leeos, Abs 03/31/2019 14:34 0.04 0.0-0.2 Fi nal Performing Location [address] [address]
--- OUTSIDE RECORDS SUMMARY | 2023-06-18 03:37 | External Medical Summary | Summary of Care ---
Author Name Unknown Organization [place] [address] Care Team Providers Care Assigner Name Role Phone Alex Pinto MD Primary Care Provider [phone] Reason for Visit * Reason Comments Re-Check 3 month follow up -- diverticulitis, hospital follow up Encounter Details Date Type Department Care Team Description 03/31/2019 Office Visit Gastroenterology, [facility] [address] [facility] [place] [address] Zulay Eagle DO [address] [facility] [place] [id number] H/O gastrointestinal diverticular hemorrhage* Allergies Active Allergy Reactions Severity Noted Date Comments Valsartan 07/10/2010 Enalapril 05/21/2006 Escitalopram Oxalate Nausea/vomiting 10/11/2009 Nauseated Iodinated Diagnostic Agents Nausea/vomiting 05/2010 IV Contrast Lisinopril 05/21/2006 Metoprolol Tartrate 11/18/2006 Made pulse low [place] Oil-Black Currant-Vit E 07/10/2010 Verapamil 03/21/2004 Bupropion Hcl 10/30/2009 Makes pt sick in the stomach documented as of this encounter (statuses as of 03/31/2019) Medications Medication Sig Dispensed Refills Start Date [...] EVERY DAY 30 Cap 5 3 Active XOPENEX HFA 45 MCG/ACT IN AERO TAKE 2 PUFFS EVERY 6 TO 8 HOURS NEEDED 12 4 Active LUMIGAN 0.01 % OP SOLN INSTILL [...] of less than 7.0% ([facility]) USE TO TEST BLOOD SUGAR [...] Tablet Every other day 60 Tab 11 8 Active KLOR-CON M20 [...] Active DilTIAZem HCl ER Beads 360 MG [id number]:HTN , goal below 130/80 TAKE 1 CAPSULE [...] A DAY 4 g 11 9 Active ciprofloxacin (CIPRO) 500 MG Tablet Take 500 mg by mouth 2 times a day. 0 Active metroNIDAZOLE (FLAGYL) 500 MG Tablet Take 500 mg by mouth 3 times a day. 0 Active Meloxicam 15 MG Tablet TAKE 1 TAB BY MOUTH DAILY. FOR PAIN. 11 9 Active docusate sodium (COLACE) 100 MG Capsule Take 1 Cap by mouth daily. 90 Cap 0 9 Active predniSONE (DELTASONE) 20 MG TabletIndications:A sthma with severity to be determined 2 tablets daily for 5 days then 1 tablet daily 15 Tab 0 9 03/31/20 19 Discontinued documented as of this encounter (statuses as of 03/31/2019) Active Problems Problem Noted Date Body mass [...] as of this encounter (statuses as of 03/31/2019) Resolved Problems Problem Noted Date Resolved Date [...] Hypoxemia 10/08/2011 10/30/2015 Genetic Sleep Disorder Research Other*[id number] 07/25/2011 05/15/2016 Diverticulitis of colon 07/25/2011 01/06/20 [...] as of this encounter (statuses as of 03/31/2019) Immunizations Name Administration Dates Next Due Hepatitis [...] Sign Reading Time Taken Comments Blood Pressure 148/62 03/31/2019 1:45 PM EDT Pulse 72 03/31/2019 1:45 PM EDT Temperature 36.5 C (97.7 F) 03/31/2019 1:45 PM ED T Respiratory Rate - - Oxygen Saturation - - Inhaled Oxygen Concentration - - Weight 113.4 kg (249 lb 14.4 oz) 03/31/2019 1:45 PM EDT Height 164 cm (5' 4.57") 03/31/2019 1:45 PM EDT Body Mass Index 42.14 03/31/2019 1:45 PM EDT documented in this encounter Patient Instructions * Patient Instructions* Zulay Eagle DO - 03/31/2019 2:05 PM EDT Continue iron supplement CBC today Colace 100 mg per day documented in this encounter Progress Notes * Zulay Eagle DO - 03/31/2019 2:09 PM EDT Consult requested by: Ref: ALEX PINTO[[id number]] [address] [place] [address] (office) [phone] (fax) CC: Hematochezia HPI: Nina Harrington is a 78 year old female who presents for follow-up after recent hospitalization for hematochezia. The patient was admitted to [facility] for suspected diverticular hemorrhage. She has had numerous presentations over the past 5 years due to similar problems. Unfortunately, the patient has diverticulosis involving the entire colon and was told she would need a subtotal colectomy if surgery was elected. The patient has tried use of MiraLax but notes that her bowels become too loose when using this medication. She is presently not using fiber in her diet. Review of patient's allergies indicates: Allergen Reactions Diovan [Valsartan] Enalapril Escitalopram Oxalate Nausea/vomiting Nauseated Iodinated Diagnostic Agents Nausea/vomiting IV Contrast Lisinopril Metoprolol Tartrate Made pulse low [place] Oil-Black Currant-Vit E Verapamil Wellbutrin [Bupropion Hcl] [...] TAB BY MOUTH DAILY. FOR PAIN. 11 ciprofloxacin (CIPRO) 500 MG Tablet Take 500 mg by mouth 2 times a day. COMBIVENT RESPIMAT 20-100 MCG/ACT Inhaler TAKE 1 PUFF BY MOUTH 4 TIMES A DAY 4 g 11 metroNIDAZOLE (FLAGYL) 500 MG Tablet Take 500 [...] 1000 UNITS PO TABS one tablet daily Past Surgical History: Procedure Laterality Date APPENDECTOMY W/OTHER PROCEDURE 1960 when removed gall bladder COLONOSCOPY, DIAGNOSTIC (RECTUM) 05/29/2016 poor prep, diverticulosis/inpt [facility] COLONOSCOPY, DIAGNOSTIC (RECTUM) 06/05/2017 diverticulosis, repeat 3 yrs/[facility] COLONOSCOPY, DIAGNOSTIC (RECTUM) 02/28/2018 adenomatous polyps, diverticulosis, repeat 3 yrs / [facility] COLONOSCOPY, W/BIOPSY 03/20/12 hyperplastic polyps rpt 3 years. EGD, FLEXIBLE, DIAGNOSTIC 04/29/2014 normal/inpt [facility] EGD, FLEXIBLE, DIAGNOSTIC 05/29[facility] 11/08/2016 inflammatory changes, stomach lesion, repeat EUS 1.5 yrs/[facility] EGD, FLEXIBLE,W/ENDOSCOPIC US 05/01/2018 stromal cell (smooth muscle) neoplasm, CBD dilation, repeat 2 yrs (needs OV prior)/[facility] INCISIONAL HERNIA REPAIR, LAP, REDUCIBLE 09/29/12 Repair of incarcerated supraumbilical (incisional) hernia with Atrium mesh 09/29/12 LIGATE/CUT OVIDUCT(S) REMOVAL OF TONSILS, AGE 12+ age 11 REMOVE GALLBLADDER 1960 SIGMOIDOSCOPY, DIAGNOSTIC 04/29/[facility], REMOVE FOREIGN BODY mesh from prior hernia surgery, wrapped around small bowel. small bowel surgery Family History Problem Relation Age of Onset Cancer Mother breast Breast Cancer Mother Diabetes Aunt (Unspecified) Other (JORDAN) Son not diagnosed Asthma Daughter Lung Disorder Grandfather (Paternal) ?COPD vs asthma 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 Tobacco Use Smoking status: Never Smoker Smokeless tobacco: Never Used Substance Use Topics Alcohol use: No ROS: GEN: no weight loss HEENT: no changes in vision RESP: no cough, + SOB with exertion (longstanding) CARDIOVASCULAR: no exertional chest pain, GI: see HPI , otherwise negative : no dysuria NEURO: no significant headache SKIN: no new rashes, no itching PHYSICAL EXAM: BP 148/62 | Pulse 72 | Temp (Src) 97.7 (Tympanic) | Ht 5' 4.57" (1.640m) | Wt 249 lbs 14.4 oz (113.354kg) | BMI 42.14 kg/m | BSA 2.27 m GENERAL: no acute distress SKIN: no rashes HEENT: normocephalic, sclerae clear NECK: supple, no masses LUNGS: Poor airway movement HEART: regular rate & rhythm, no murmurs ABDOMEN: mild epigastric tenderness without guarding EXTREMITIES: no palmar erythema NEURO: no lateralizing findings, Sensory/Motor grossly normal IMPRESSION: Patient with a history of recurrent diverticular bleeding. She has brar diverticulosis of the colon and was previously seen by general surgery who felt she would benefit most from a subtotal colectomyif surgery was offered. At the present time the patient is not interested in this type of intervention. Given this I would recommend the patient begin a fiber supplement 1 time daily and use Colace 1time daily as she was intolerant MiraLax in the past. We have no plan to repeat a colonoscopy as her last examination was performed 12 months ago and notable for diverticulosis of the colon in addition to internal hemorrhoids. The patient will follow up with our office in 1 year or sooner if needed. ASSESSMENT/PLAN: H/O gastrointestinal diverticular hemorrhage (Primary) - CBC/DIFF; Future; Expected date: 03/31/2019 Other orders - docusate sodium (COLACE) 100 MG Capsule; Take 1 Cap by mouth daily. Zulay Eagle DO [facility] Gastroenterology, [address] [address] This chart was completed in part utilizing [email or web address] Direct Voice Recognition Software. Grammatical errors, random word insertions, prounoun erros, and incomplete sentences are an occasional consequence of this system due to software limitations, ambient noise, and hardware issues. Any formal questions or concerns about the content, text, or information contained within the body of this dictation should be directly addressed to the provider for clarification documented in this encounter Nursing Notes * Tasha Duong LPN - 03/31/2019 1:53 PM EDT Patient identified by name and date of . Chief Complaint Patient presents with Re-Check 3 month follow up --diverticulitis, hospital follow up documented in this encounter Miscellaneous Notes * Addendum Note - Toshia Jorge PBT - 03/31/2019 2:21 PM EDT Addended by: TOSHIA JORGE on: 03/31/2019 02:21 PM Modules accepted: Orders documented in this encounter Plan of Treatment Upcoming Encounters Date Type Specialty Care Team Description 04/06/2019 Office Visit Internal Medicine Alex Pinto MD [address] [facility] [address] [phone] 04/09/2019 Office Visit Internal Medicine Alex Pinto MD [address] [place] [address] [phone] 04/14/2019 Nutrition Services Gastroenterology Nita Enriquez, AKIKO [address] [place] [address] [place] [address] [phone] 06/01/2019 Imaging Radiology 06/28/2019 Nurse Only Ancillary Park, Nurse Annual [facility] Scenery [address] [place] [address] [phone] 07/08/2019 [facility] [address] [place] [address] [place] [address] [phone] Pending Results Name Type Priority Associated Diagnoses Date /Time CBC/DIFF Lab Routine H/O gastrointestinal diverticular hemorrhage 03/31/2019 2:19 PM EDT Scheduled Orders Name Type Priority Associated Diagnoses Orde r Schedule CBC/DIFF Lab Routine H/O gastrointestinal diverticular hemorrhage Expected: 03/31/2019 (Approximate), Expires: 07/01/2019 Health Maintenance Due Date Last Done Comments [...] as of this encounter Visit Diagnoses Diagnosis H/O gastrointestinal diverticular hemorrhage- Primary Personal history of other diseases of digestive system documented in this encounter Advance Directives Documents on File Type Date Recorded 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
--- OUTSIDE RECORDS SUMMARY | 2023-06-18 03:37 | External Medical Summary | Summary of Care ---
Author Name Unknown Organization [place] [address] Care Team Providers Care Hypercil Core Transformer Assembler Name Role Phone Alex Pinto MD Primary Care Provider [phone] Reason for Visit * Reason Comments Re-Check 3 month follow up -- diverticulitis, hospital follow up Encounter Details Date Type Department Care Team Description 03/31/2019 Office Visit Gastroenterology, [facility] [address] [facility] [place] [address] Zulay Eagle DO [address] [facility] [place] [id number] H/O gastrointestinal diverticular hemorrhage* Allergies Active Allergy Reactions Severity Noted Date Comments Valsartan 07/10/2010 Enalapril 05/21/2006 Escitalopram Oxalate Nausea/vomiting 10/11/2009 Nauseated Iodinated Diagnostic Agents Nausea/vomiting 05/2010 IV Contrast Lisinopril 05/21/2006 Metoprolol Tartrate 11/18/2006 Made pulse low [place] Oil-Black Currant-Vit E 07/10/2010 Verapamil 03/21/2004 [...] Active DilTIAZem HCl ER Beads 360 MG [id number]:HTN , goal below 130/80 TAKE 1 CAPSULE [...] Hypoxemia 10/08/2011 10/30/2015 Genetic Sleep Disorder Research Other*[id number] 07/25/2011 05/15/2016 Diverticulitis of colon 07/25/2011 01/06/20 [...] PM EDT Consult requested by: Ref: ALEX PINTO[[id number]] [address] [place] [address] (office) [phone] (fax) CC: Hematochezia HPI: Nina Harrington is a 78 year old female who presents for follow-up after recent hospitalization for hematochezia. The patient was admitted to [facility] for suspected diverticular hemorrhage. She has [...] Contrast Lisinopril Metoprolol Tartrate Made pulse low [place] Oil-Black Currant-Vit E Verapamil Wellbutrin [Bupropion Hcl] [...] mouth daily. 100 Tab 3 Glucose Blood (EYIMY CONTOUR TEST) STRP USE TO TEST BLOOD [...] COLONOSCOPY, DIAGNOSTIC (RECTUM) 05/29/2016 poor prep, diverticulosis/[facility] COLONOSCOPY, DIAGNOSTIC (RECTUM) 06/05/2017 diverticulosis, repeat 3 yrs/[facility] COLONOSCOPY, DIAGNOSTIC (RECTUM) 02/28/2018 adenomatous polyps, diverticulosis, repeat 3 yrs / [facility] COLONOSCOPY, W/BIOPSY 03/20/12 hyperplastic polyps rpt 3 years. EGD, FLEXIBLE, DIAGNOSTIC 04/29/2014 normal/inpt [facility] EGD, FLEXIBLE, DIAGNOSTIC 05/29/[facility],W/ENDOSCOPIC US 11/08/2016 inflammatory changes, stomach lesion, repeat EUS 1.5 yrs/[facility] EGD, FLEXIBLE,W/ENDOSCOPIC US 05/01/2018 stromal cell (smooth muscle) neoplasm, CBD dilation, repeat 2 yrs (needs OV prior)/[facility] INCISIONAL HERNIA REPAIR, LAP, REDUCIBLE 09/29/12 Repair of incarcerated supraumbilical (incisional) hernia with Atrium mesh 09/29/12 LIGATE/CUT OVIDUCT(S) REMOVAL OF TONSILS, AGE 12+ age 11 REMOVE GALLBLADDER 1960 SIGMOIDOSCOPY, DIAGNOSTIC 04/29/2014 [facility] SMALL [facility]OWEL ENDOSCOPY, REMOVE FOREIGN BODY mesh [...] Cap by mouth daily. Zulay Eagle DO [facility] Gastroenterology, [address] [address] This chart was completed in part utilizing [employer] Direct Voice Recognition Software. Grammatical errors, random [...] Alex Pinto MD [address] [facility] [address] [phone] 04/09/2019 Office Visit Internal Medicine Alex Pinto MD [address] [place] [address] [phone] 04/14/2019 Nutrition Services Gastroenterology Nita Enriquez, AKIKO [address] [place] [address] [place] [address] [phone] 06/01/2019 Imaging Radiology 06/28/2019 Nurse Only Ancillary Park, Nurse Annual Well[facility] Scenery [address] [place] [address] [phone] 07/08/2019 [facility] [address] [place] [address] [place] [address] [phone] Pending Results Name Type Priority Associated Diagnoses [...] Documents on File Type Date Recorded Patient Civil Engineer'S Aide Expl anation Advanced Directive Advanced Directive Advanced Directive Advanced Directive Advanced Directive Advanced Directive Advanced Directive Advanced Directive Advanced Directive Advanced Directive Advanced Directive Advanced Directive Advanced Directive Advanced Directive Advanced Directive
--- OUTSIDE RECORDS SUMMARY | 2023-06-18 03:37 | External Medical Summary | Summary of Care ---
Author Name Unknown Organization [place] [address] Care Team Providers Care Adjunct Instructor Chemistry Name Role Phone Marcela Pinto MD Primary Care Provider [phone] Reason for Visit * Reason Comments Medication Refill Encounter Details Date Type Department Care Team Description 03/29/2019 Refill General Internal Medicine [facility] [address] [place], [place] [id number] Marcela Pinto MD [address] [place] [address] [phone] GENERAL OSTEOARTHROSIS Allergies Active Allergy Reactions Severity Noted Date Comments Valsartan 07/10/2010 Enalapril 05/21/2006 Escitalopram Oxalate Nausea/vomiting 10/11/2009 Nauseated Iodinated Diagnostic Agents Nausea/vomiting 05/2010 IV Contrast Lisinopril 05/21/2006 Metoprolol Tartrate 11/18/2006 Made pulse low [place] Oil-Black Currant-Vit E 07/10/2010 Verapamil 03/21/2004 Bupropion Hcl 10/30/2009 Makes pt sick in the stomach documented as of this encounter (statuses as of 03/29/2019) Medications Medication Sig Dispensed Refills Start Date [...] less than 7.0% ([facility]) USE TO TEST BLOOD SUGAR [...] FOR EDEMA 30 Tab 11 8 Active COMBIVENT RESPIMAT 20-100 MCG/ACT InhalerIndications: Asthma with severity to be determined,COPD, moderate ([facility]) TAKE 1 PUFF BY MOUTH 4 TIMES A DAY 4 g 11 8 Active albuterol sulfate (PROVENTIL) (2.5 [...] Active DilTIAZem HCl ER Beads 360 MG [id number]:HTN , goal below 130/80 TAKE 1 CAPSULE EVERY DAY 90 Cap 1 9 Active glimepiride (AMARYL) 4 MG TabletIndications:T ype 2 diabetes mellitus with hemoglobin A1c goal of less than 7.5% ([facility]) Take 0.5 Tabs by mouth daily before [...] EVERY DAY 90 Cap 1 9 Active predniSONE (DELTASONE) 20 MG TabletIndications:A sthma with severity to be determined 2 tablets daily for 5 days then 1 tablet daily 15 Tab 0 9 Active omeprazole (PRILOSEC) 20 MG CPDRIndications:Isc [...] for Pain, Mild. 120 Tab 0 9 03/29/20 19 Discontinued documented as of this encounter (statuses as of 03/29/2019) Active Problems Problem Noted Date Body mass [...] as of this encounter (statuses as of 03/29/2019) Resolved Problems Problem Noted Date Resolved Date [...] Hypoxemia 10/08/2011 10/30/2015 Genetic Sleep Disorder Research Other*[id number] 07/25/2011 05/15/2016 Diverticulitis of colon 07/25/2011 01/06/20 [...] as of this encounter (statuses as of 03/29/2019) Immunizations Name Administration Dates Next Due Hepatitis [...] encounter Miscellaneous Notes * Telephone Encounter - Carine Barber MD - 03/29/2019 12:59 PM EDT Signed Prescriptions: Disp Refills HYDROcodone-acetaminophen 5-325 mg per tab*120 Tab0 Sig: Take 1 Tab by mouth every 6 hours as needed for Pain, Mild.Authorizing Provider: CARINE BARBER * Telephone Encounter - Carine Barber MD - 03/29/2019 12:59 PM EDT I have reviewed the patients controlled substance dispensing history in the Prescription Drug Monitoring Program in compliance with the [facility] regulations before prescribing a controlled substance. * Telephone Encounter - Cari Lassiter LPN - 03/29/2019 11:04 AM EDT Pending Prescriptions: Disp Refills HYDROcodone-acetaminophen 5-325 mg per ta*120 Tab0 Sig: Take 1 Tab by mouth every 6 hours as needed for Pain, Mild. Last Office Visit: 01/05/2019 Next Office Visit: 04/06/2019 Scheduled Provider(s): Marcela Pinto MD If no future appointments scheduled, and last appointment is greater than a year ago, please schedule patient for a follow-up appointment Last date the medication was ordered: 02/09/2019 Patient Phone Numbers Labs: Lab Results Component Value Date/Time CREAT 0.90 01/12/2019 CREAT 0.9 07/27/2018 11:32 AM POTASSIUM 4.6 07/27/2018 11:32 AM TSH 0.42 07/27/2018 11:32 AM LDLCALC 88.60 01/12/2019 LDLCALC 95 07/27/2018 11:32 AM LDLDIRECT 99 01/12/2019 LDLDIRECT 97 07/27/2018 11:32 AM ALT 9 (L) 07/27/2018 11:32 AM HGBA1C 7.0 (A) 01/12/2019 HGBA1C 6.8 (H) 07/27/2018 11:32 AM documented in this encounter Plan of Treatment Upcoming Encounters Date Type Specialty Care Team Description 03/30/2019 Office Visit Podiatry Chantel Moore DPM [address] [place] [address] [place] [address] 03/31/2019 Office Visit Gastroenterology Zulay Eagle DO [address] [facility] [place] [address] [phone] 04/06/2019 Office Visit Internal Medicine Marcela Pinto MD [address] [place] [address] [phone] 04/09/2019 Office Visit Internal Medicine Marcela Pinto MD [address] [place] [address] [phone] 04/14/2019 Nutrition Services Gastroenterology Nita Enriquez RDN [address] [place] [address] [place] [address] [phone] 06/01/2019 Imaging Radiology 06/28/2019 Nurse Only Ancillary Nurse Heather [facility] [address] [place], [place] [address] [phone] Health Maintenance Due Date Last Done Comments [...] Documents on File Type Date Recorded Patient Minister Of Religion Expl anation Advanced Directive Advanced Directive Advanced Directive Advanced Directive Advanced Directive Advanced Directive Advanced Directive Advanced Directive Advanced Directive Advanced Directive Advanced Directive Advanced Directive Advanced Directive Advanced Directive Advanced Directive
--- OUTSIDE RECORDS SUMMARY | 2023-06-18 03:37 | External Medical Summary | Summary of Care ---
Author Name Unknown Organization [place] [address] Care Team Providers Care Leasing Agent Name Role Phone Marcela Pinto MD Primary Care Provider [phone] Encounter Details Date Type Department Care Team Description 03/23/2019 Scan Encounter Unspecified Department <No scans attached> Allergies Active Allergy Reactions Severity Noted Date Comments Valsartan 07/10/2010 Enalapril 05/21/2006 Escitalopram Oxalate Nausea/vomiting 10/11/2009 Nauseated Iodinated Diagnostic Agents Nausea/vomiting 05/2010 IV Contrast Lisinopril 05/21/2006 Metoprolol Tartrate 11/18/2006 Made pulse low [place] Oil-Black Currant-Vit E 07/10/2010 Verapamil 03/21/2004 Bupropion [...] 7.0% ([facility]) USE TO TEST BLOOD SUGAR 4 TIMES [...] Active DilTIAZem HCl ER Beads 360 MG [id number]:HTN , goal below 130/80 TAKE 1 CAPSULE [...] Hypoxemia 10/08/2011 10/30/2015 Genetic Sleep Disorder Research Other*[id number] 07/25/2011 05/15/2016 Diverticulitis of colon 07/25/2011 01/06/20 [...] Medicine Marcela Pinto MD [address] [place] [address] [phone] 04/09/2019 Office Visit Internal Medicine Marcela Pinto MD [address] [place] [address] [phone] 04/14/2019 Nutrition Services Gastroenterology Yohn, Nita Abel, RDN [address] [place] [address] [place] [address] [phone] 06/01/2019 Imaging Radiology 06/28/2019 Nurse Only Ancillary Heather, [facility] [address] [place] [address] [phone] 07/08/2019 Office Visit Podiatry Region, [facility] [address] [place] [address] [place] [address] [phone] Health Maintenance Due Date Last Done Comments [...] Documents on File Type Date Recorded 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
--- OUTSIDE RECORDS SUMMARY | 2023-06-18 03:37 | External Medical Summary | Summary of Care ---
Author Name Unknown Organization [place] [address] Care Team Providers Care Coastal/Harbor Defense Officer Name Role Phone Marcela Pinto MD Primary Care Provider [phone] Encounter Details Date Type Department Care Team Description 03/25/2019 Scan Encounter Unspecified Department <No scans attached> Allergies Active Allergy Reactions Severity Noted Date Comments Valsartan 07/10/2010 Enalapril 05/21/2006 Escitalopram Oxalate Nausea/vomiting 10/11/2009 Nauseated Iodinated Diagnostic Agents Nausea/vomiting 05/2010 IV Contrast Lisinopril 05/21/2006 Metoprolol Tartrate 11/18/2006 Made pulse low [place] Oil-Black Currant-Vit E 07/10/2010 Verapamil 03/21/2004 Bupropion Hcl 10/30/2009 Makes pt sick in the stomach documented as of this encounter (statuses as of 03/26/2019) Medications Medication Sig Dispensed Refills Start Date [...] Active DilTIAZem HCl ER Beads 360 MG [id number]:HTN, goal below 130/80 TAKE 1 CAPSULE EVERY [...] EVERY DAY 90 Tab 2 02/08/2019 Active HYDROcodone-acetamin ophen 5-325 mg per tab 5-325 MG per tabletIndications:Ge neralized osteoarthritis Take 1 Tab by mouth every 6 hours as needed for Pain, Mild. 120 Tab 0 02/09/2019 Active Terazosin HCl 2 MG Capsule TAKE [...] as of this encounter (statuses as of 03/26/2019) Active Problems Problem Noted Date Body mass [...] as of this encounter (statuses as of 03/26/2019) Resolved Problems Problem Noted Date Resolved Date [...] Hypoxemia 10/08/2011 10/30/2015 Genetic Sleep Disorder Research Other*[id number] 07/25/2011 05/15/2016 Diverticulitis of colon 07/25/2011 01/06/20 [...] as of this encounter (statuses as of 03/26/2019) Immunizations Name Administration Dates Next Due Hepatitis [...] Team Description 03/30/2019 Office Visit Podiatry Chantel Moore, DPM [address] [place] [address] [place] [id number] 03/31/2019 Office Visit Gastroenterology Zulay Eagle, [address] [facility] [place] [address] [phone] 04/06/2019 Office Visit Internal Medicine Marcela Pinto MD [address] [place] [address] [phone] 04/09/2019 Office Visit Internal Medicine Marcela Pinto MD [address] [place] [address] [phone] 04/14/2019 Nutrition Services Gastroenterology Nita Enriquez, IWONAN [address] [place] [address] [place] [address] [phone] 06/01/2019 Imaging Radiology 06/28/2019 Nurse Only Ancillary [place], Nurse [facility] [address] [place] [address] [phone] Health Maintenance Due Date Last Done Comments [...] on File Type Date Recorded Patient Technical Education Teacher Expl anation Advanced Directive Advanced Directive Advanced Directive Advanced Directive Advanced Directive Advanced Directive Advanced Directive Advanced Directive Advanced Directive Advanced Directive Advanced Directive Advanced Directive Advanced Directive Advanced Directive Advanced Directive
--- OUTSIDE RECORDS SUMMARY | 2023-06-18 03:37 | External Medical Summary | Summary of Care ---
Author Name Unknown Organization [place] [address] Care Team Providers Care Rv Technician Name Role Phone Marcela Pinto MD Primary Care Provider [phone] Reason for Visit * Reason Comments eRx-Medication Refill Encounter Details Date Type Department Care Team Description 03/30/2019 Refill General Internal Medicine [facility] [address] [place], [place] [id number] Marcela Pinto MD 200 [place] [address] [phone] Asthma with severity to be determined; COPD, moderate ([facility]) Allergies Active Allergy Reactions Severity Noted Date Comments Valsartan 07/10/2010 Enalapril 05/21/2006 Escitalopram Oxalate Nausea/vomiting 10/11/2009 Nauseated Iodinated Diagnostic Agents Nausea/vomiting 05/2010 IV Contrast Lisinopril 05/21/2006 Metoprolol Tartrate 11/18/2006 Made pulse low [place] Oil-Black Currant-Vit E 07/10/2010 Verapamil 03/21/2004 Bupropion [...] Active DilTIAZem HCl ER Beads 360 MG KN93Zgisjkmmqvb:HTN , goal below 130/80 TAKE 1 CAPSULE EVERY DAY 90 Cap 1 9 Active glimepiride (AMARYL) 4 MG TabletIndications:T ype 2 diabetes mellitus with hemoglobin A1c goal of less than 7.5% ([facility]) Take 0.5 Tabs by mouth daily [...] mouth 3 times a day. 0 Active COMBIVENT RESPIMAT 20-100 MCG/ACT InhalerIndications: Asthma with severity to be determined,COPD, moderate ([facility]) TAKE 1 PUFF BY MOUTH 4 TIMES A DAY 4 g 8 03/30/20 19 Discontinued documented as of this encounter [...] Hypoxemia 10/08/2011 10/30/2015 Genetic Sleep Disorder Research Other*[id number] 07/25/2011 05/15/2016 Diverticulitis of colon 07/25/2011 01/06/20 [...] Miscellaneous Notes * Telephone Encounter - Joanna Montanez [facility] - 03/30/2019 2:57 PM EDT Signed Prescriptions: Disp Refills COMBIVENT RESPIMAT 20-100 MCG/ACT Inhaler 4 g 11 Sig: TAKE 1 PUFF BY MOUTH 4 TIMES A DAY Authorizing Provider: MARCELA PINTO User: JOANNA MONTANEZ * Telephone Encounter - Trav Oconnor, real estate accountant - 03/30/2019 2:53 PM EDT Pending Prescriptions: Disp Refills COMBIVENT RESPIMAT 20-100 MCG/ACT Inhaler*4 g 11 Sig: TAKE 1 PUFF BY MOUTH 4 TIMES A DAY * Telephone Encounter - Trav Oconnor PHARM Tech - 03/30/2019 2:52 PM EDT Pending Prescriptions: Disp Refills COMBIVENT RESPIMAT 20-100 MCG/ACT Inhaler*4 g 11 Sig: TAKE 1 PUFF BY MOUTH 4 TIMES A DAY Last Office Visit: 01/05/2019 Next Office Visit: 04/06/2019 Scheduled Provider(s): Marcela Pinto MD If no future appointments scheduled, and last appointment is greater than a year ago, please schedule patient for a follow-up appointment Last date the medication was ordered: 07/02/2018 Patient Phone Numbers Labs: Lab Results Component [...] Office Visit Gastroenterology Zulay Eagle DO [address] [place] [address] [phone] 04/06/2019 Office Visit Internal Medicine [facility] [address] [facility] [address] [phone] 04/09/2019 Office Visit Internal Medicine Marcela Pinto MD [address] [place] [address] [phone] 04/14/2019 Nutrition Services Gastroenterology Nita Enriquez, IWONAN [address] [place] [address] [place] [address] [phone] 06/01/2019 Imaging Radiology 06/28/2019 Nurse Only Ancillary Nurse Heather [facility] [address] [place] [address] [phone] 07/08/2019 Office Visit Podiatry Region, [facility] [address] [place] [address] [place] [id number] Health Maintenance Due Date Last Done Comments [...] Documents on File Type Date Recorded Patient Probation Worker Expl anation Advanced Directive Advanced Directive Advanced Directive Advanced Directive Advanced Directive Advanced Directive Advanced Directive Advanced Directive Advanced Directive Advanced Directive Advanced Directive Advanced Directive Advanced Directive Advanced Directive Advanced Directive
--- OUTSIDE RECORDS SUMMARY | 2023-06-18 03:37 | External Medical Summary | Summary of Care ---
Author Name Unknown Organization [place] [address] Care Team Providers Care Genetics Nurse Name Role Phone Marcela Pinto MD Primary Care Provider [phone] Encounter Details Date Type Department Care Team Description 04/02/2019 Orders Only General Internal Medicine [facility] [address] [place], [place] [id number] Marcela Pinto MD [address] [facility] [place] [address] [phone] Allergies Active Allergy Reactions Severity Noted Date Comments Valsartan 07/10/2010 Enalapril 05/21/2006 Escitalopram Oxalate Nausea/vomiting 10/11/2009 Nauseated Iodinated Diagnostic Agents Nausea/vomiting 05/2010 IV Contrast Lisinopril 05/21/2006 Metoprolol Tartrate 11/18/2006 Made pulse low [place] [...] less than 7.0% ([facility]) USE TO TEST BLOOD SUGAR 4 [...] Active DilTIAZem HCl ER Beads 360 MG [id number]:HTN, goal below 130/80 TAKE 1 CAPSULE EVERY [...] A DAY 4 g 11 03/30/2019 Active ciprofloxacin (CIPRO) 500 MG Tablet Take 500 mg by mouth 2 times a day. 0 Active metroNIDAZOLE (FLAGYL) 500 MG Tablet Take 500 mg by mouth 3 times a day. 0 Active Meloxicam 15 MG Tablet TAKE 1 TAB BY MOUTH DAILY. FOR PAIN. 11 02/07/2019 Active docusate sodium (COLACE) 100 MG Capsule [...] Hypoxemia 10/08/2011 10/30/2015 Genetic Sleep Disorder Research Other*[id number] 07/25/2011 05/15/2016 Diverticulitis of colon 07/25/2011 01/06/20 [...] Internal Medicine Marcela Pinto MD [address] [place] [address] [phone] 04/09/2019 Office Visit Internal Medicine Marcela Pinto MD [address] [place] [address] [phone] 04/14/2019 Nutrition Services Gastroenterology Nita Enriquez, AKIKO [address] [place] [address] [place] [address] [phone] 06/01/2019 Imaging Radiology 06/28/2019 Nurse Only Ancillary [place], Nurse [facility] [address] [place] [address] [phone] 07/08/2019 Office Visit Podiatry Region, [facility] [address] [place] [address] [place] [id number] Health Maintenance Due Date Last Done Comments [...] Priority Date/Time Associated Diagnosis Comments CHEMISTRY-OUTSIDE Routine 03/22/2019 documented in this encounter Results * CHEMISTRY-OUTSIDE (03/22/2019) CREATININE-OUTSIDE LAB 0.85 0.55 - 1.02 MG/DL OUTSIDE LAB (SEE SCANNED REPORT) GFR ESTIMATED-OUTSIDE LAB >60 60 ML/MIN OUTSIDE LAB (SEE SCANNED REPORT) POTASSIUM-OUTSIDE LAB 3.8 3.5 - 5.1 MMOL OUTSIDE LAB (SEE SCANNED REPORT) GLUCOSE-OUTSIDE LAB 109 70 - 110 MG/DL OUTSIDE LAB (SEE SCANNED REPORT) HOURS FASTING OUTSIDE LAB (S EE SCANNED REPORT) TRIGLYCERIDES-OUTSID E LAB 133 30 - 200 MG/DL OUTSIDE LAB (SEE SCANNED REPORT) CHOLESTEROL-OUTSIDE LAB 140 200 MG/DL OUTSIDE LAB (SEE SCANNED REPORT) HDL-OUTSIDE LAB 56.0 40.0 - 59.0 MG/DL OUTSIDE LAB (SEE SCANNED REPORT) CHOL/HDL RATIO-OUTSIDE LAB OUTSIDE LAB (SEE SCANNED REPORT) LDL (CALCULATED)-OUTSIDE LAB 57.40 0 - 100 MG/DL OUTSIDE LAB (SEE SCANNED REPORT) LDL (DIRECT MEASURE)-OUTSIDE LAB OUTSIDE LAB (SEE SCANNED REPORT) HEMOGLOBIN, C2X-FIMZFNE LAB 6.7(A) 4.2 - 6.3 % OUTSIDE LAB (SEE SCANNED REPORT) PHOSPHORUS-OUTSIDE LAB 3.8 2.5 - 4.9 MG/DL OUTSIDE LAB (SEE SCANNED REPORT) PTH-OUTSIDE LAB OUTSIDE LAB (SEE SCANNED REPORT) MICROALBUMIN RATIO-OUTSIDE LAB OUTSIDE LAB (SEE SCANNED REPORT) PROTEIN, UA-OUTSIDE LAB NEG NEG OUTSIDE LAB (SEE SCANNED REPORT) HEMOGLOBIN-OUTSIDE LAB 9.2(A) 12.0 - 16.0 GM/DL OUTSIDE LAB (SEE SCANNED REPORT) CHEMISTRY COMMENT-OUTSIDE LAB Comment:[facility] 03/22/19,03/23/19,09/30,03/25/19-GFR, BMP,HGB A1C,MPG,LIPID,MAGN ESIUM,PHOS,CK,CK MB,TROP I,PT INR,PTT,CBC,HGB,HC T,AUTO DIFF,URINALYSIS OUTSIDE LAB (SEE SCANNED REPORT) Specimen Narrative Performed At Performing Organization Address City/State/Zipcod e Phone Number OUTSIDE LAB (SEE SCANNED REPORT) documented in this encounter Advance Directives Documents on File Type Date Recorded Patient Case Manager Specialist Expl anation Advanced Directive Advanced Directive Advanced Directive Advanced Directive Advanced Directive Advanced Directive Advanced Directive Advanced Directive Advanced Directive Advanced Directive Advanced Directive Advanced Directive Advanced Directive Advanced Directive Advanced Directive
--- OUTSIDE RECORDS SUMMARY | 2023-06-18 03:38 | External Medical Summary | Summary of Care ---
Author Name Unknown Organization [place] [address] Care Team Providers Care Pilot Steam Yacht Name Role Phone Marcela Pinto MD Primary Care Provider [phone] Reason for Visit * Reason Comments Medication Refill Encounter Details Date Type Department Care Team Description 02/08/2019 Refill General Internal Medicine [facility] [address] [place], [place] [id number] Marcela Pinto MD [address] [place] [address] [phone] GENERAL OSTEOARTHROSIS Allergies Active Allergy Reactions Severity Noted Date Comments Valsartan 07/10/2010 Enalapril 05/21/2006 Escitalopram Oxalate Nausea/vomiting 10/11/2009 Nauseated Iodinated Diagnostic Agents Nausea/vomiting 05/2010 IV Contrast Lisinopril 05/21/2006 Metoprolol Tartrate 11/18/2006 Made pulse low [place] Oil-Black Currant-Vit E 07/10/2010 Verapamil 03/21/2004 Bupropion Hcl 10/30/2009 Makes pt sick in the stomach documented as of this encounter (statuses as of 02/09/2019) Medications Medication Sig Dispensed Refills Start Date [...] :Asthma with severity to be determined,COPD, moderate ([facility]) USE ONE NEBULIZER TREATMENT TWICE A DAY NEEDED FOR WORSENING ASTHMA. J45.909, J44.9 225 mL 1 8 Active Terazosin HCl 2 MG Capsule TAKE ONE CAPSULE BY MOUTH EVERY DAY 90 Cap 1 8 Active omeprazole (PRILOSEC) 20 MG CPDRIndications:Isc hemic colitis ([facility]) TAKE 1 CAPSULE TWICE DAILY 180 Cap 1 8 Active atorvaSTATin (LIPITOR) 40 MG [...] Active DilTIAZem HCl ER Beads 360 MG TB64Xpvfytcrwrt:HTN , goal below 130/80 TAKE 1 CAPSULE EVERY DAY 90 Cap 1 9 Active predniSONE (DELTASONE) 50 MG TabletIndications:L LQ abdominal pain,Allergy to iodinated contrast Take 1 tablet by mouth 13 hr, 7 hr, and [address] scan. 3 Tab 0 9 Active glimepiride (AMARYL) 4 MG TabletIndications:T ype 2 diabetes mellitus with hemoglobin A1c goal of less than 7.5% ([facility]) Take 0.5 Tabs by mouth daily before breakfast. 90 Tab 3 9 Active zafirlukast (ACCOLATE) 20 MG TabletIndications:A sthma with severity to be determined TAKE 1 TABLET BY MOUTH EVERY DAY 90 Tab 0 9 Active dicyclomine (BENTYL) 20 MG TabletIndications:C hronic constipation TAKE 1 TABLET BY MOUTH EVERY DAY 90 Tab 2 9 Active HYDROcodone-acetami nophen 5-325 mg per tab 5-325 MG per tabletIndications:G eneralized osteoarthritis Take 1 Tab by mouth every 6 hours as needed for Pain, Mild. 120 Tab 0 9 Active HYDROcodone-acetami nophen 5-325 mg per tab 5-325 MG per tabletIndications:G eneralized osteoarthritis Take 1 Tab by mouth every 6 hours as needed for Pain, Mild. 120 Tab 0 9 02/09/20 19 Discontinued documented as of this encounter (statuses as of 02/09/2019) Active Problems Problem Noted Date Body mass [...] as of this encounter (statuses as of 02/09/2019) Resolved Problems Problem Noted Date Resolved Date [...] Hypoxemia 10/08/2011 10/30/2015 Genetic Sleep Disorder Research Other*[id number] 07/25/2011 05/15/2016 Diverticulitis of colon 07/25/2011 01/06/20 [...] as of this encounter (statuses as of 02/09/2019) Immunizations Name Dates Previously Given Next Due Hepatitis B, 20+ yrs 10/01/2017,04/21/2017,03/20 Pneumococcal Conjugate Vacc, 13 Valent (Prevnar) 03/28/2015 Pneumococcal Polysaccharide PPV23 (Pneumovax) 05/21/2006 Seasonal Influenza, Quadriva lent, No Preserve, 6 Mons & Above, IM 06/16/2018,07/30/2017 Seasonal Influenza, Quadriva lent, No Preserve, IM 08/15/2016,07/14/2015 Seasonal Influenza, Trivalen t, with Preserve, 3yr & Above, Split 08/04/2014,07/26/2013,06/26/2012,,08/16/2010,07/18/2009,2007,08/12/2006 TD, Preservative Free 02/28/2009 TDAP (age 8 [...] encounter Miscellaneous Notes * Telephone Encounter - Nicolas Ng MD - 02/09/2019 2:01 PM EDT Signed Prescriptions: Disp Refills HYDROcodone-acetaminophen 5-325 mg per tab*120 Tab0 Sig: Take 1 Tab by mouth every 6 hours as needed for Pain, Mild. Authorizing Provider: NICOLAS NG * Telephone Encounter - Carson Sarabia RP - 02/09/2019 11:50 AM EDT Pending Prescriptions: Disp Refills HYDROcodone-acetaminophen 5-325 mg per ta*120 Tab0 Sig: Take 1 Tab by mouth every 6 hours as needed for Pain, Mild. * Telephone Encounter - Carson Sarabia [facility] - 02/09/2019 11:50 AM EDT I have reviewed the patients controlled substance dispensing history in the Prescription Drug Monitoring Program in compliance with the [facility] regulations before prescribing a controlled substance. PDMP checked on 02/09/2019. Patient requesting: [place] 5/325mg, filled 12/23/18, for #120 for a 30 day supply. Other recent controlled medication fills: None Last Office Visit: 01/05/2019 Date medication is due for refill: 01/21/19 Toxicology results: Results for orders placed or [...] Results Review. Please approve if appropriate. Thanks, Carson Sarabia PharmD Clinical Pharmacist Pharmacy Refill Call Center 02/09/2019, 11:50 AM * Telephone Encounter - Lexie Riley PHARM Tech - 02/08/2019 1:06 PM EDT Pending Prescriptions: Disp Refills HYDROcodone-acetaminophen 5-325 mg per ta*120 Tab0 Sig: Take 1 Tab by mouth every 6 hours as needed for Pain, Mild. Last Office Visit: 01/05/2019 Next Office Visit: 04/09/2019 Scheduled Provider(s): Marcela Pinto MD If no future appointments scheduled, and last appointment is greater than a year ago, please schedule patient for a follow-up appointment Last date the medication was ordered: 12/16/2018 Patient Phone Numbers Labs: Lab Results Component [...] Encounters Date Type Specialty Care Team Description 02/15/2019 Nutrition Services Gastroenterology Nita Enriquez RDN [address] [place] [address] [place] [address] [phone] 03/11/2019 Office Visit Podiatry Chantel Moore DPM [address] [place] [address] [place] [address] 03/31/2019 Office Visit Gastroenterology Zulay Eagle, [address] [facility] [place] [address] [phone] 04/09/2019 Office Visit Internal Medicine Marcela Pinto MD [address] [place] [address] [phone] 06/01/2019 Imaging Radiology 06/28/2019 Nurse Only Ancillary [place], Nurse Annual Wellness Scenery [address] [place] [address] [phone] Health Maintenance Due Date Last Done Comments [...] site documented in this encounter Advance Directives Patient has advance care planning documents on file. For more information, please contact: [place] [id number]
--- OUTSIDE RECORDS SUMMARY | 2023-06-18 03:38 | External Medical Summary | Summary of Care ---
Author Name Unknown Organization [place] [address] Care Team Providers Care Cake Cutter Machine Name Role Phone Marcela Pinto MD Primary Care Provider [phone] Encounter Details Date Type Department Care Team Description 03/22/2019 Scan Encounter Unspecified Department <No scans attached> Allergies Active Allergy Reactions Severity Noted Date Comments Valsartan 07/10/2010 Enalapril 05/21/2006 Escitalopram Oxalate Nausea/vomiting 10/11/2009 Nauseated Iodinated Diagnostic Agents Nausea/vomiting 05/2010 IV Contrast Lisinopril 05/21/2006 Metoprolol Tartrate 11/18/2006 Made pulse low [place] Oil-Black Currant-Vit E 07/10/2010 Verapamil 03/21/2004 Bupropion Hcl 10/30/2009 Makes pt sick in the stomach documented as of this encounter (statuses as of 03/23/2019) Medications Medication Sig Dispensed Refills Start Date [...] Active DilTIAZem HCl ER Beads 360 MG [id number]:HTN, goal below 130/80 TAKE 1 CAPSULE EVERY [...] as of this encounter (statuses as of 03/23/2019) Active Problems Problem Noted Date Body mass [...] as of this encounter (statuses as of 03/23/2019) Resolved Problems Problem Noted Date Resolved Date [...] Hypoxemia 10/08/2011 10/30/2015 Genetic Sleep Disorder Research Other*[id number] 07/25/2011 05/15/2016 Diverticulitis of colon 07/25/2011 01/06/20 [...] as of this encounter (statuses as of 03/23/2019) Immunizations Name Administration Dates Next Due Hepatitis [...] Care Team Description 03/30/2019 Office Visit Podiatry hCantel Moore, DPM [address] [place] [address] [place] [id number] 03/31/2019 Office Visit Gastroenterology Zulay Eagle, [address] [facility] [place] [address] [phone] 04/09/2019 Office Visit Internal Medicine Marcela Pinto MD [address] [place] [address] [phone] 04/14/2019 Nutrition Services Gastroenterology Nita Enriquez, RDN [address] [place] [address] [place] [address] [phone] 06/01/2019 Imaging Radiology 06/28/2019 Nurse Only Ancillary [place], Nurse Annual Wellness Scenery [address] [place], [place] [address] [phone] Health Maintenance Due Date Last Done Comments [...] Documents on File Type Date Recorded Patient Telecom Specialist Expl anation Advanced Directive Advanced Directive Advanced Directive Advanced Directive Advanced Directive Advanced Directive Advanced Directive Advanced Directive Advanced Directive Advanced Directive Advanced Directive Advanced Directive Advanced Directive Advanced Directive Advanced Directive
--- OUTSIDE RECORDS SUMMARY | 2023-06-18 03:38 | External Medical Summary | Summary of Care ---
Author Name Unknown Organization [place] [address] Care Team Providers Care Print Inspector Name Role Phone Marcela Pinto MD Primary Care Provider [phone] Reason for Visit * Reason Comments Acute Encounter Details Date Type Department Care Team Description 03/16/2019 Office Visit Internal Medicine [address] [address] Laquita Mayen PA-C [address] [place] [address] [place] [address] Asthma with severity to be determined* Allergies Active Allergy Reactions Severity Noted Date Comments Valsartan 07/10/2010 Enalapril 05/21/2006 Escitalopram Oxalate Nausea/vomiting 10/11/2009 Nauseated Iodinated Diagnostic Agents Nausea/vomiting 05/2010 IV Contrast Lisinopril 05/21/2006 Metoprolol Tartrate 11/18/2006 Made pulse low [place] Oil-Black Currant-Vit E 07/10/2010 Verapamil 03/21/2004 Bupropion Hcl 10/30/2009 Makes pt sick in the stomach documented as of this encounter (statuses as of 03/16/2019) Medications Medication Sig Dispensed Refills Start Date [...] J45.909, J44.9 225 mL 1 8 Active omeprazole (PRILOSEC) 20 MG CPDRIndications:Isc hemic colitis (HCC) TAKE 1 CAPSULE TWICE DAILY 180 Cap [...] Active DilTIAZem HCl ER Beads 360 MG [id number]:HTN , goal below 130/80 TAKE 1 CAPSULE EVERY DAY 90 Cap 1 9 Active glimepiride (AMARYL) 4 MG TabletIndications:T ype 2 diabetes mellitus with hemoglobin A1c goal of less than 7.5% ([facility]) Take 0.5 Tabs by mouth daily [...] Pain, Mild. 120 Tab 0 9 Active Terazosin HCl 2 MG Capsule TAKE 1 CAPSULE BY MOUTH EVERY DAY 90 Cap 1 9 Active predniSONE (DELTASONE) 20 MG TabletIndications:A sthma with severity to be determined 2 tablets daily for 5 days then 1 tablet daily 15 Tab 0 9 Active predniSONE (DELTASONE) 50 MG TabletIndications:L LQ abdominal pain,Allergy to iodinated contrast Take 1 tablet by mouth 13 hr, 7 hr, and [address] scan. 3 Tab 0 9 03/16/20 19 Discontinued documented as of this encounter (statuses as of 03/16/2019) Active Problems Problem Noted Date Body mass [...] as of this encounter (statuses as of 03/16/2019) Resolved Problems Problem Noted Date Resolved Date [...] Hypoxemia 10/08/2011 10/30/2015 Genetic Sleep Disorder Research Other*[id number] 07/25/2011 05/15/2016 Diverticulitis of colon 07/25/2011 01/06/20 [...] as of this encounter (statuses as of 03/16/2019) Immunizations Name Administration Dates Next Due Hepatitis [...] Sign Reading Time Taken Comments Blood Pressure 128/64 03/16/2019 3:34 PM EDT Pulse 72 03/16/2019 3:34 PM EDT Temperature 37.1 C (98.7 F) 03/16/2019 3:34 PM ED T Respiratory Rate 16 03/16/2019 3:34 PM EDT Oxygen Saturation - - Inhaled Oxygen Concentration - - Weight 112.5 kg (248 lb) 03/16/2019 3:34 PM EDT Height - - Body Mass Index 41.82 01/05/2019 2:42 PM EDT documented in this encounter Progress Notes * Laquita Mayen PA-C - 03/16/2019 3:39 PM EDT Nursing Notes: Tatiana Vasquez LPN 03/16/19 1538 Signed Pt is here for SOB, pt said she coughed all night, and said it is hard to breath , and when she gets active she gets SOB, pt said she was trying to clean yesterday and had asthma attack Pt back hurts across her mid back , not sure if that is from all the coughing she did Pt here today with SOB, wheezing, dry cough for the past few days. Pt has hx of asthma. She is taking all of her meds. Pt denies fever, chills, nausea, vomiting, diarrhea, chest pain, sinus pain/pressure, nasal/head congestion, sore throat, ear pain, headache, sputum production. Review of patient's allergies indicates: Allergen Reactions [place] [Valsartan] Enalapril Escitalopram Oxalate Nausea/vomiting Nauseated Iodinated Diagnostic Agents Nausea/vomiting IV Contrast Lisinopril Metoprolol Tartrate Made pulse low [place] Oil-Black Currant-Vit E Verapamil Wellbutrin [Bupropion Hcl] Makes pt sick in the stomach Current Outpatient Medications Medication Sig Dispense Refill Terazosin HCl 2 MG Capsule TAKE 1 CAPSULE BY MOUTH EVERY DAY 90 Cap 1 HYDROcodone-acetaminophen 5-325 mg per tab 5-325 MG per tablet Take 1 Tab by mouth every 6 hours as needed for Pain, Mild. 120 Tab 0 dicyclomine (BENTYL) 20 MG Tablet TAKE 1 [...] NAUSEA 60 Tab 5 Nebulizers (NEBULIZER COMPRESSOR) [facility] Inhale via nebulizer. Use as directed. Please give tubing to use with it. 1 Each 1 atorvaSTATin (LIPITOR) 40 MG Tablet Take 1 Tab by mouth daily. 90 Tab 3 omeprazole (PRILOSEC) 20 MG CPDR TAKE 1 CAPSULE TWICE DAILY 180 Cap 1 albuterol sulfate (PROVENTIL) (2.5 MG/3ML) 0.083% [...] stool per day. . 2 Bottle 3 Glucose Blood (YEIMY COUNTOUR TEST) STRP R73.09/hgba1c [...] 1000 UNITS PO TABS one tablet daily oxygen GAS Use 4 L/min(Oxygen) as directed. 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 rate 16, weight 112.5 kg (248 lb). GENERAL: alert and no distress NECK: supple, no adenopathy EYES: PERRLA, Conjunctiva are pink and non-injected, sclera clear EARS: External ears normal, Canals clear, TM's Normal NOSE: no mucosal erythema, no mucosal edema, no purulent discharge OROPHARYNX: no exudate, no erythema, lips, buccal mucosa, and tongue normal and mucous membranes are moist HEART: regular rate & rhythm, no murmurs and no gallops LUNGS: chest symmetric with normal AP diameter, no chest deformities noted, no chest wall tenderness, lungs clear to auscultation A:Asthma with severity to be determined (Primary) - predniSONE (DELTASONE) 20 MG Tablet; 2 tablets daily for 5 days then 1 tablet daily Start above med. Rest, fluids. Any questions/problems, please call. Follow Up: Return if symptoms worsen or fail to improve. Laquita Mayen PA-C documented in this encounter Nursing Notes * Tatiana Vasquez LPN - 03/16/2019 3:35 PM EDT Pt is here for SOB, pt said she coughed all night, and said it is hard to breath , and when she gets active she gets SOB, pt said she was trying to clean yesterday and had asthma attack Pt back hurts across her mid back , not sure if that is from all the coughing she did documented in this encounter Plan of Treatment Upcoming Encounters Date Type Specialty Care Team Description 03/30/2019 Office Visit Podiatry Chantel Moore, DPM [address] [place] [address] [place] [address] [phone] 03/31/2019 Office Visit Gastroenterology Zulay Eagle, [address] [facility] [place] [address] [phone] 04/09/2019 Office Visit Internal Medicine Marcela Pinto MD [address] [facility] [place] [address] [phone] 04/14/2019 Nutrition Services Gastroenterology Nita Enriquez, IWONAN [address] [place] [address] [place] [address] [phone] 06/01/2019 Imaging Radiology 06/28/2019 Nurse Only Ancillary [place], Nurse Annual Wellness Scenery [address] [place] [address] [phone] Health Maintenance Due Date Last Done Comments [...] Asthma with severity to be determined- Primary documented in this encounter Advance Directives Documents on File Type Date Recorded Patient Package Checker Expl anation Advanced Directive Advanced Directive Advanced Directive Advanced Directive Advanced Directive Advanced Directive Advanced Directive Advanced Directive Advanced Directive Advanced Directive Advanced Directive Advanced Directive Advanced Directive Advanced Directive Advanced Directive
--- OUTSIDE RECORDS SUMMARY | 2023-06-18 03:38 | External Medical Summary | Summary of Care ---
Author Name Unknown Organization [place] [address] Care Team Providers Care Supervisor Paper Coating Name Role Phone Marcela Pinto MD Primary Care Provider [phone] Encounter Details Date Type Department Care Team Description 03/22/2019 Scan Encounter Unspecified Department <No scans attached> Allergies Active Allergy Reactions Severity Noted Date Comments Valsartan 07/10/2010 Enalapril 05/21/2006 Escitalopram Oxalate Nausea/vomiting 10/11/2009 Nauseated Iodinated Diagnostic Agents Nausea/vomiting 05/2010 IV Contrast Lisinopril 05/21/2006 Metoprolol Tartrate 11/18/2006 Made pulse low [place] Oil-Black Currant-Vit E 07/10/2010 Verapamil 03/21/2004 [...] [facility]) USE TO TEST BLOOD SUGAR 4 TIMES [...] Active DilTIAZem HCl ER Beads 360 MG [id number]:HTN, goal below 130/80 TAKE 1 CAPSULE EVERY [...] Hypoxemia 10/08/2011 10/30/2015 Genetic Sleep Disorder Research Other*[id number] 07/25/2011 05/15/2016 Diverticulitis of colon 07/25/2011 01/06/20 [...] [address] [place] [address] [place] [id number] 03/31/2019 Office Visit Gastroenterology Zulay Eagle, [address] [facility] [place] [address] [phone] 04/09/2019 Office Visit Internal Medicine Marcela Pinto MD [address] [place] [address] [phone] 04/14/2019 Nutrition Services Gastroenterology Nita Enriquez, RDN [address] [place] [address] [place] [address] [phone] 06/01/2019 Imaging Radiology 06/28/2019 Nurse Only Ancillary [place], Nurse Annual Wellness Scenery [address] [place], [place] [address] [phone] Health Maintenance Due Date Last Done Comments [...] on File Type Date Recorded 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
--- OUTSIDE RECORDS SUMMARY | 2023-06-18 03:38 | External Medical Summary | Summary of Care ---
Author Name Unknown Organization [place] [address] Care Team Providers Care Sand Mill Operator Core Sand Name Role Phone Marcela Pinto MD Primary Care Provider [phone] Encounter Details Date Type Department Care Team Description 03/22/2019 Scan Encounter Unspecified Department <No scans attached> Allergies Active Allergy Reactions Severity Noted Date Comments Valsartan 07/10/2010 Enalapril 05/21/2006 Escitalopram Oxalate Nausea/vomiting 10/11/2009 Nauseated Iodinated Diagnostic Agents Nausea/vomiting 05/2010 IV Contrast Lisinopril 05/21/2006 Metoprolol Tartrate 11/18/2006 Made pulse low [place] Oil-Black Currant-Vit E 07/10/2010 Verapamil 03/21/2004 Bupropion Hcl 10/30/2009 Makes pt sick in the stomach documented as of this encounter (statuses as of 03/24/2019) Medications Medication Sig Dispensed Refills Start Date [...] [facility]) USE TO TEST BLOOD SUGAR 4 TIMES [...] Active DilTIAZem HCl ER Beads 360 MG [id number]:HTN, goal below 130/80 TAKE 1 CAPSULE EVERY [...] as of this encounter (statuses as of 03/24/2019) Active Problems Problem Noted Date Body mass [...] as of this encounter (statuses as of 03/24/2019) Resolved Problems Problem Noted Date Resolved Date [...] Hypoxemia 10/08/2011 10/30/2015 Genetic Sleep Disorder Research Other*[id number] 07/25/2011 05/15/2016 Diverticulitis of colon 07/25/2011 01/06/20 [...] as of this encounter (statuses as of 03/24/2019) Immunizations Name Administration Dates Next Due Hepatitis [...] [address] [place] [address] [place] [id number] 03/31/2019 Office Visit Gastroenterology Zulay Eagle, [address] [facility] [place] [address] [phone] 04/09/2019 Office Visit Internal Medicine Marcela Pinto MD [address] [place] [address] [phone] 04/14/2019 Nutrition Services Gastroenterology Nita Enriquez, RDN [address] [place] [address] [place] [address] [phone] 06/01/2019 Imaging Radiology 06/28/2019 Nurse Only Ancillary [place], Nurse Annual Wellness Scenery [address] [place], [place] [address] [phone] Health Maintenance Due Date Last Done Comments [...] on File Type Date Recorded Patient Property Management Bookkeeper Expl anation Advanced Directive Advanced Directive Advanced Directive Advanced Directive Advanced Directive Advanced Directive Advanced Directive Advanced Directive Advanced Directive Advanced Directive Advanced Directive Advanced Directive Advanced Directive Advanced Directive Advanced Directive
--- OUTSIDE RECORDS SUMMARY | 2023-06-18 03:38 | External Medical Summary | Summary of Care ---
Author Name Unknown Organization [place] [address] Care Team Providers Care Quality Review Trainer Name Role Phone Marcela Pinto MD Primary Care Provider [phone] Reason for Visit * Reason Comments eRx-Medication Refill Encounter Details Date Type Department Care Team Description 03/22/2019 Refill General Internal Medicine [facility] [address] [place] [address] Briseyda Barber MD [address] [address] Ischemic colitis (HCC) Allergies Active Allergy Reactions Severity Noted Date Comments Valsartan 07/10/2010 Enalapril 05/21/2006 Escitalopram Oxalate Nausea/vomiting 10/11/2009 Nauseated Iodinated Diagnostic Agents Nausea/vomiting 05/2010 IV Contrast Lisinopril 05/21/2006 Metoprolol Tartrate 11/18/2006 Made pulse low [place] Oil-Black Currant-Vit E 07/10/2010 Verapamil 03/21/2004 Bupropion Hcl 10/30/2009 Makes pt sick in the stomach documented as of this encounter (statuses as of 03/22/2019) Medications Medication Sig Dispensed Refills Start Date [...] than 7.0% ([facility]) USE TO TEST BLOOD SUGAR [...] Active DilTIAZem HCl ER Beads 360 MG IH34Jxiqifgovhk:HTN , goal below 130/80 TAKE 1 CAPSULE EVERY DAY 90 Cap 1 9 Active glimepiride (AMARYL) 4 MG TabletIndications:T ype 2 diabetes mellitus with hemoglobin A1c goal of less than 7.5% ([facility]) Take 0.5 Tabs by mouth [...] A DAY 180 Cap 1 9 Active omeprazole (PRILOSEC) 20 MG CPDRIndications:Isc hemic colitis (HCC) TAKE 1 CAPSULE TWICE DAILY 180 Cap 1 8 03/22/20 19 Discontinued documented as of this encounter (statuses as of 03/22/2019) Active Problems Problem Noted Date Body mass [...] as of this encounter (statuses as of 03/22/2019) Resolved Problems Problem Noted Date Resolved Date [...] Hypoxemia 10/08/2011 10/30/2015 Genetic Sleep Disorder Research Other*[id number] 07/25/2011 05/15/2016 Diverticulitis of colon 07/25/2011 01/06/20 [...] as of this encounter (statuses as of 03/22/2019) Immunizations Name Administration Dates Next Due Hepatitis [...] Notes * Telephone Encounter - Melvi Juan [facility] - 03/22/2019 1:51 PM EDT Signed Prescriptions: Disp Refills omeprazole (PRILOSEC) 20 MG CPDR 180 Cap1 Sig: TAKE 1 CAPSULE BY MOUTH TWICE A DAYAuthorizing Provider: MARCELA PINTO User: MELVI JUAN * Telephone Encounter - Melvi Juan [facility] - 03/22/2019 1:51 PM EDT Vitamin B12 previously ordered. Thank You Melvi Juan, PharmD Staff Pharmacist Refill Call Center 03/22/2019, 1:51 PM * Telephone Encounter - Vicenta Meek, pony worker - 03/22/2019 1:47 PM EDT Pending Prescriptions: Disp Refills omeprazole (PRILOSEC) 20 MG CPDR [Pharmac*180 Cap1 Sig: TAKE 1 CAPSULE BY MOUTH TWICE A DAY * Telephone Encounter - Vicenta Meek PHARM Tech - 03/22/2019 1:46 PM EDT Pending Prescriptions: Disp Refills omeprazole (PRILOSEC) 20 MG CPDR [Pharmac*180 Cap1 Sig: TAKE 1 CAPSULE BY MOUTH TWICE A DAY Last Office Visit: 01/05/2019 Next Office Visit: 04/09/2019 Scheduled Provider(s): Marcela Pinto MD If no future appointments scheduled, and last appointment is greater than a year ago, please schedule patient for a follow-up appointment Last date the medication was ordered: 09/07/2018 Patient Phone Numbers Labs: Lab Results Component [...] 03/31/2019 Office Visit Gastroenterology Zulay Eagle, [address] [facility] [place] [address] 04/09/2019 Office Visit Internal Medicine Marcela Pinto MD [address] [place] [address] [phone] 04/14/2019 Nutrition Services Gastroenterology Nita Enriquez, AKIKO [address] [place] [address] [place] [id number] 06/01/2019 Imaging Radiology 06/28/2019 Nurse Only Ancillary Heather Nurse [facility] [address] [place] [address] [phone] Health Maintenance Due Date Last Done Comments [...]
--- OUTSIDE RECORDS SUMMARY | 2023-06-18 03:38 | External Medical Summary | Summary of Care ---
Author Name Unknown Organization [place] [address] Care Team Providers Care Department Of Sociology Chair Name Role Phone Marcela Pinto MD Primary Care Provider [phone] Encounter Details Date Type Department Care Team Description 03/25/2019 Scan Encounter Unspecified Department <No scans attached> Allergies Active Allergy Reactions Severity Noted Date Comments Valsartan 07/10/2010 Enalapril 05/21/2006 Escitalopram Oxalate Nausea/vomiting 10/11/2009 Nauseated Iodinated Diagnostic Agents Nausea/vomiting 05/2010 IV Contrast Lisinopril 05/21/2006 Metoprolol Tartrate 11/18/2006 Made pulse low [place] [...] Active DilTIAZem HCl ER Beads 360 MG CB14Esmexhlablo:HTN, goal below 130/80 TAKE 1 CAPSULE EVERY [...] Hypoxemia 10/08/2011 10/30/2015 Genetic Sleep Disorder Research Other*[id number] 07/25/2011 05/15/2016 Diverticulitis of colon 07/25/2011 01/06/20 [...] [address] [place] [address] [place] [id number] 03/31/2019 Office Visit Gastroenterology Zulay Eagle, [address] [facility] [place] [address] [phone] 04/06/2019 Office Visit Internal Medicine Marcela Pinto MD [address] [place] [address] [phone] 04/09/2019 Office Visit Internal Medicine Marcela Pinto MD [address] [place] [address] [phone] 04/14/2019 Nutrition Services Gastroenterology Nita Enriquez, IWONAN [address] [place] [address] [place] [address] [phone] 06/01/2019 Imaging Radiology 06/28/2019 Nurse Only Ancillary [place], Nurse [facility] [address] [place] [address] [phone] Health Maintenance Due Date Last Done Comments [...] on File Type Date Recorded 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
--- OUTSIDE RECORDS SUMMARY | 2023-06-18 03:38 | External Medical Summary | Summary of Care ---
Author Name Unknown Organization [place] [address] Care Team Providers Care Hacksaw Inspector Name Role Phone Marcela Pinto MD Primary Care Provider [phone] Encounter Details Date Type Department Care Team Description 03/16/2019 Telephone General Internal Medicine [facility] [address] [place] [address] Marcela Pinto MD [address] [place], [place] [id number] Allergies Active Allergy Reactions Severity Noted Date Comments Valsartan 07/10/2010 Enalapril 05/21/2006 Escitalopram Oxalate Nausea/vomiting 10/11/2009 Nauseated Iodinated Diagnostic Agents Nausea/vomiting 05/2010 IV Contrast Lisinopril 05/21/2006 Metoprolol Tartrate 11/18/2006 Made pulse low [place] Oil-Black Currant-Vit E 07/10/2010 Verapamil 03/21/2004 Bupropion [...] to be determined,COPD, moderate ([facility]) USE ONE NEBULIZER TREATMENT TWICE A DAY NEEDED FOR WORSENING ASTHMA. J45.909, J44.9 225 mL 1 07/17/2018 Active omeprazole (PRILOSEC) 20 MG CPDRIndications:Isch emic colitis ([facility]) TAKE 1 CAPSULE TWICE DAILY 180 Cap 1 09/07/2018 Active atorvaSTATin (LIPITOR) 40 MG TabletIndications:Hy perlipidemia [...] Active DilTIAZem HCl ER Beads 360 MG ZF22Cchkvuzjmxh:HTN, goal below 130/80 TAKE 1 CAPSULE EVERY DAY 90 Cap 1 11/30/2018 Active predniSONE (DELTASONE) 50 MG TabletIndications:LL Q abdominal pain,Allergy to iodinated contrast Take 1 tablet by mouth 13 hr, 7 hr, and [address] scan. 3 Tab 0 12/16/2018 Active glimepiride (AMARYL) 4 MG TabletIndications:Ty pe 2 diabetes mellitus with hemoglobin A1c goal of less than 7.5% ([facility]) Take 0.5 Tabs by mouth [...] EVERY DAY 90 Cap 1 03/12/2019 Active documented as of this encounter (statuses [...] Hypoxemia 10/08/2011 10/30/2015 Genetic Sleep Disorder Research Other*[id number] 07/25/2011 05/15/2016 Diverticulitis of colon 07/25/2011 01/06/20 [...] Miscellaneous Notes * Telephone Encounter - Cari Lassiter LPN - 03/16/2019 9:02 AM EDT Pt requesting appt for ?asthma exacerbation vs URI. States she has been having a dry cough and sore with inspiration Started yesterday States her asthma has been worsening lately. Had wheezing overnight. Acute appt scheduled documented in this encounter Plan of Treatment Upcoming Encounters Date Type Specialty Care Team Description 03/16/2019 Office Visit Internal Medicine Laquita Mayen PA-C [address] [place] [address] [place] [address] [phone] 03/30/2019 Office Visit Podiatry Chantel Moore DPM [address] [place] [address] [place] [address] 03/31/2019 Office [facility] [address] [facility] [address] [phone] 04/09/2019 Office Visit Internal Medicine Marcela Pinto MD [address] [place] [address] [phone] 04/14/2019 Nutrition Services Gastroenterology Nita Enriquez RDN [address] [place] [address] [place] [address] [phone] 06/01/2019 Imaging Radiology 06/28/2019 Nurse Only Ancillary Nurse Heather [facility] [address] [place] [address] [phone] Health Maintenance Due Date Last Done Comments [...] Documents on File Type Date Recorded Patient Non Destructive Testing Inspector Expl anation Advanced Directive Advanced Directive Advanced Directive Advanced Directive Advanced Directive Advanced Directive Advanced Directive Advanced Directive Advanced Directive Advanced Directive Advanced Directive Advanced Directive Advanced Directive Advanced Directive
--- OUTSIDE RECORDS SUMMARY | 2023-06-18 03:38 | External Medical Summary | Summary of Care ---
Author Name Unknown Organization [place] [address] Care Team Providers Care Supervisor Carbon Electrodes Name Role Phone Marcela Pinto MD Primary Care Provider [phone] Reason for Referral * Evaluate & Treat - Unlimited Visits (Within 10 days (routine)) Status Reason Specialty Diagnoses / Procedures Referred By Contact Referred To Contact Pending Review Specialty Services Required Physical Therapy Diagnoses Neck pain Right shoulder pain Marcela Pinto MD [address] [place] [address] Reason for Visit * Reason Comments Order Request Continue PT Encounter Details Date Type Department Care Team Description 01/25/2019 Telephone General Internal Medicine [facility] [address] [place] [address] Marcela Pinto MD [address] [place] [address] [phone] Order Request (Continue PT) Allergies Active Allergy Reactions Severity Noted Date Comments Valsartan 07/10/2010 Enalapril 05/21/2006 Escitalopram Oxalate Nausea/vomiting 10/11/2009 Nauseated Iodinated Diagnostic Agents Nausea/vomiting 05/2010 IV Contrast Lisinopril 05/21/2006 Metoprolol Tartrate 11/18/2006 Made pulse low [place] Oil-Black Currant-Vit E 07/10/2010 Verapamil 03/21/2004 Bupropion Hcl 10/30/2009 Makes pt sick in the stomach documented as of this encounter (statuses as of 01/25/2019) Medications Medication Sig Dispensed Refills Start Date [...] J45.909, J44.9 225 mL 1 07/17/2018 Active Terazosin HCl 2 MG Capsule TAKE ONE CAPSULE BY MOUTH EVERY DAY 90 Cap 1 09/07/2018 Active omeprazole (PRILOSEC) 20 MG CPDRIndications:Isch emic colitis (HCC) TAKE 1 CAPSULE TWICE DAILY 180 Cap 1 09/07/2018 Active atorvaSTATin (LIPITOR) 40 MG TabletIndications:Hy perlipidemia with target LDL less than 100 Take 1 Tab by mouth daily. 90 Tab 3 09/07/2018 Active Nebulizers (NEBULIZER COMPRESSOR) MISC Inhale via nebulizer. Use as directed. Please give tubing to use with it. 1 Each 1 11/12/2018 Active dicyclomine (BENTYL) 20 MG TabletIndications:Ch ronic constipation Take 1 Tab by mouth daily. 90 Tab 0 11/16/2018 Active ondansetron ODT (ZOFRAN) 8 MG TBDPIndications:Naus ea DISSOLVE 1 TABLET ON TONGUE EVERY 8 HOURS NEEDED FOR NAUSEA 60 Tab 5 11/24/2018 Active RaNITidine HCl 300 MG Tablet Take 0.5 Tabs by mouth at bedtime. 90 Tab 1 11/25/2018 Active DilTIAZem HCl ER Beads 360 MG RN45Euvyopuxqiv:HTN, goal below 130/80 TAKE 1 CAPSULE EVERY DAY 90 Cap 1 11/30/2018 Active predniSONE (DELTASONE) 50 MG TabletIndications:LL Q abdominal pain,Allergy to iodinated contrast Take 1 tablet by mouth 13 hr, 7 hr, and [address] scan. 3 Tab 0 12/16/2018 Active HYDROcodone-acetamin ophen 5-325 mg per tab 5-325 MG per tabletIndications:Ge neralized osteoarthritis Take 1 Tab by mouth every 6 hours as needed for Pain, Mild. 120 Tab 0 12/23/2018 Active glimepiride (AMARYL) 4 MG TabletIndications:Ty pe 2 diabetes mellitus with hemoglobin A1c goal of less than 7.5% (HCC) Take 0.5 Tabs by mouth daily before breakfast. 90 Tab 3 01/05/2019 Active zafirlukast (ACCOLATE) 20 MG TabletIndications:As thma with severity to be determined TAKE 1 TABLET BY MOUTH EVERY DAY 90 Tab 0 01/22/2019 Active documented as of this encounter (statuses as of 01/25/2019) Active Problems Problem Noted Date Body mass [...] as of this encounter (statuses as of 01/25/2019) Resolved Problems Problem Noted Date Resolved Date [...] Hypoxemia 10/08/2011 10/30/2015 Genetic Sleep Disorder Research Other*[id number] 07/25/2011 05/15/2016 Diverticulitis of colon 07/25/2011 01/06/20 [...] as of this encounter (statuses as of 01/25/2019) Immunizations Name Dates Previously Given Next Due [...] Telephone Encounter - Renetta Gu LPN - 01/25/2019 11:12 AM EDT Faxed. * Telephone Encounter - Luly Farley OSA - 01/25/2019 11:00 AM EDT An order was requested for this patient. Name of Requestor: The patient Order Requested: Physical Therapy Diagnosis/Reason for Request: Patient was sick for a couple weeks and her she was not going to PT, her therapist called this past Friday saying if she wants to continue to ask provider to fax anotherorder over. Associated Diagnoses Neck pain [M54.2] - Primary Pain in joint of right shoulder [M25.511] Comments Worsening neckpain, RT shoulder pain. Thanks. Does the order need to be faxed somewhere? If so, where?: She believes it's [facility] Fax Number, if applicable: [phone] Call Back Number: [phone] documented in this encounter Plan of Treatment Upcoming Encounters Date Type Specialty Care Team Description 02/15/2019 Nutrition Services Gastroenterology Nita Enriquez, AKIKO [address] [place] [place] [address] [phone] 03/11/2019 Office Visit Podiatry Chantel Moore DPM [address] [place] [place] [address] [phone] 03/31/2019 Office Visit Gastroenterology Zulay Eagle, DO [address] [place] [address] [phone] 04/09/2019 Office Visit Internal Medicine Marcela Pinto MD [address] [place] [address] [phone] 06/01/2019 Imaging Radiology 06/28/2019 Nurse Only Ancillary Nurse Heather [facility] [address] [place] [address] [phone] Scheduled Referrals Name Priority Associated Diagnoses Order S chedule PHYSICAL THERAPY REFERRAL OP Within 10 days (routine) Neck pain Right shoulder pain Ordered: 01/25/2019 Health Maintenance Due Date Last Done Comments [...] of this encounter Visit Diagnoses Diagnosis Neck pain- Primary Cervicalgia Shoulder joint pain Pain in joint, shoulder region Right shoulder pain Pain in joint, shoulder region documented in this encounter Advance Directives Patient has advance care planning documents on file. For more information, please contact: [place] [phone]
--- OUTSIDE RECORDS SUMMARY | 2023-06-18 03:38 | External Medical Summary | Summary of Care ---
Author Name Unknown Organization [place] [address] Care Team Providers Care Cane Flume Watcher Name Role Phone Alex Pinto MD Primary Care Provider [phone] Reason for Visit * Reason Comments eRx-Medication Refill Encounter Details Date Type Department Care Team Description 01/22/2019 Refill General Internal Medicine [facility] [address] [place], [place] [id number] Alex Pinto MD [address] [place] [address] [phone] Asthma with severity to be determined Allergies Active Allergy Reactions Severity Noted Date Comments Valsartan 07/10/2010 Enalapril 05/21/2006 Escitalopram Oxalate Nausea/vomiting 10/11/2009 Nauseated Iodinated Diagnostic Agents Nausea/vomiting 05/2010 IV Contrast Lisinopril 05/21/2006 Metoprolol Tartrate 11/18/2006 Made pulse low [place] Oil-Black Currant-Vit E 07/10/2010 Verapamil 03/21/2004 Bupropion Hcl 10/30/2009 Makes pt sick in the stomach documented as of this encounter (statuses as of 01/22/2019) Medications Medication Sig Dispensed Refills Start Date [...] than 7.0% ([facility]) USE TO TEST BLOOD SUGAR [...] with it. 1 Each 1 9 Active dicyclomine (BENTYL) 20 MG TabletIndications:C hronic constipation Take 1 Tab by mouth daily. 90 Tab 0 9 Active ondansetron ODT (ZOFRAN) 8 MG TBDPIndications:David sea DISSOLVE 1 TABLET ON TONGUE EVERY 8 HOURS NEEDED FOR NAUSEA 60 Tab 5 9 Active RaNITidine HCl 300 MG Tablet Take 0.5 Tabs by mouth at bedtime. 90 Tab 1 9 Active DilTIAZem HCl ER Beads 360 MG NF73Mwqarnpqxjf:HTN , goal below 130/80 TAKE 1 CAPSULE EVERY DAY 90 Cap 1 9 Active predniSONE (DELTASONE) 50 MG TabletIndications:L LQ abdominal pain,Allergy to iodinated contrast Take 1 tablet by mouth 13 hr, 7 hr, and [address] scan[address] 3 Tab 0 9 Active HYDROcodone-acetami nophen 5-325 mg per tab 5-325 MG per tabletIndications:G eneralized osteoarthritis Take 1 Tab by mouth every 6 hours as needed for Pain, Mild. 120 Tab 0 9 Active glimepiride (AMARYL) 4 MG TabletIndications:T ype 2 diabetes mellitus with hemoglobin A1c goal of less than 7.5% ([facility]) Take 0.5 Tabs by mouth daily before breakfast. 90 Tab 3 9 Active zafirlukast (ACCOLATE) 20 MG TabletIndications:A sthma with severity to be determined TAKE 1 TABLET BY MOUTH EVERY DAY 90 Tab 0 9 Active zafirlukast (ACCOLATE) 20 MG TabletIndications:A sthma with severity to be determined Take 1 Tab by mouth daily. 90 Tab 0 8 01/23/20 19 Discontinued documented as of this encounter (statuses as of 01/22/2019) Active Problems Problem Noted Date Body mass [...] as of this encounter (statuses as of 01/22/2019) Resolved Problems Problem Noted Date Resolved Date [...] Hypoxemia 10/08/2011 10/30/2015 Genetic Sleep Disorder Research Other*[id number] 07/25/2011 05/15/2016 Diverticulitis of colon 07/25/2011 01/06/20 [...] as of this encounter (statuses as of 01/22/2019) Immunizations Name Dates Previously Given Next Due [...] Telephone Encounter - Alex Pinto MD - 01/22/2019 1:23 PM EDT Signed Prescriptions: Disp Refills zafirlukast (ACCOLATE) 20 MG Tablet 90 Tab 0 Sig: TAKE 1 TABLET BY MOUTH EVERY DAY Authorizing Provider: ALEX PINTO * Telephone Encounter - Chantel Miranda LPN - 01/22/2019 9:04 AM EDT Pending Prescriptions: Disp Refills zafirlukast (ACCOLATE) 20 MG Tablet [Phar*90 Tab 0 Sig: TAKE 1 TABLET BY MOUTH EVERY DAY * Telephone Encounter - Chantel MirandaNICOL - 01/22/2019 9:04 AM EDT Pending Prescriptions: Disp Refills zafirlukast (ACCOLATE) 20 MG Tablet [Phar*90 Tab 0 Sig: TAKE 1 TABLET BY MOUTH EVERY DAY Last Office Visit: 01/05/2019 Next Office Visit: 04/09/2019 Scheduled Provider(s): Alex Pinto MD Last date the medication was ordered: 10/07/18 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 COPD, moderate ([facility]) J44.9 Allergic rhinitis J30.9 Nocturnal hypoxia G47.34 Sleep apnea, obstructive G47.33 Incisional hernia K43.2 ACEI/ARB contraindicated [id number] HTN, goal below 140/90 I10 Hyperlipidemia with target LDL less than 100 E78.5 Controlled substance agreement signed Z79.899 Type 2 diabetes mellitus with hemoglobin A1c goal of less than 7.5% ([facility]) E11.9 Hypercalcemia E83.52 Elevated plasma metanephrines R79.89 Irritable bowel syndrome with constipation K58.1 Ischemic colitis ([facility]) K55.9 Body mass index (BMI) of 40.0 to 44.9 in adult ([facility]) Z68.41 Labs: CREATININE-OUTSIDE LAB(MG/DL) Jessica Dt/Tm Resulted Value Status 01/12/19 01/13/19 0.90 FINAL POTASSIUM-OUTSIDE LAB(MMOL/L) Jessica Dt/Tm Resulted Value Status 01/12/19 01/13/19 4.1 FINAL TSH - OUTSIDE LAB(MCIU/ML) Jessica Dt/Tm Resulted Value Status 01/12/19 01/13/19 1.320 FINAL LDL (CALCULATED)-OUTSIDE LAB(MG/DL) [facility] Dt/Tm Resulted Value Status 01/12/19 01/13/19 88.60 FINAL LDL (DIRECT MEASURE)-OUTSIDE LAB(MG/DL) Jessica Dt/Tm Resulted Value Status 01/12/19 01/13/19 99 FINAL ALT(U/L) Jessica Dt/Tm Resulted Value Status 07/27/18 11:32A 07/28/18 9* FINAL Hemoglobin AIC Results: HEMOGLOBIN, [id number] LAB(%) [facility] Dt/Tm Resulted Value Status 01/12/19 01/13/19 7.0* FINAL HEMOGLOBIN, A1C(%) [facility] Dt/Tm Resulted Value Status 07/27/18 11:32A 07/28/18 6.8* FINAL 01/14/18 12:03P 01/14/18 6.2 FINAL documented in this encounter Plan of Treatment Upcoming Encounters Date Type Specialty Care Team Description 02/15/2019 Nutrition Services Gastroenterology Yohn, Nita Abel, RDN [address] [place] [address] [phone] 03/11/2019 Office Visit Podiatry Chantel Moore, DPM [address] [place] [address] [place] [address] [phone] 03/31/2019 Office Visit Gastroenterology Zulay Eagle, DO [address] [facility] [place] [address] [phone] 04/09/2019 Office Visit Internal Medicine Alex Pinto MD [address] [place] [address] [phone] 06/01/2019 Imaging Radiology 06/28/2019 Nurse Only Ancillary Nurse Heather [facility] [address] [place] [address] [phone] Health Maintenance Due Date Last Done Comments [...] determined documented in this encounter Advance Directives Patient has advance care planning documents on file. For more information, please contact: [place] [phone]
--- OUTSIDE RECORDS SUMMARY | 2023-06-18 03:38 | External Medical Summary | Summary of Care ---
Author Name Unknown Organization [place] [address] Care Team Providers Care Primary Teaching Assistant Name Role Phone Marcela Pinto MD Primary Care Provider [phone] Encounter Details Date Type Department Care Team Description 02/23/2019 Result Scan Unspecified Department <No scans attached> Allergies Active Allergy Reactions Severity Noted Date Comments Valsartan 07/10/2010 Enalapril 05/21/2006 Escitalopram Oxalate Nausea/vomiting 10/11/2009 Nauseated Iodinated Diagnostic Agents Nausea/vomiting 05/2010 IV Contrast Lisinopril 05/21/2006 Metoprolol Tartrate 11/18/2006 Made pulse low [place] Oil-Black Currant-Vit E 07/10/2010 Verapamil 03/21/2004 Bupropion Hcl 10/30/2009 Makes pt sick in the stomach documented as of this encounter (statuses as of 03/10/2019) Medications Medication Sig Dispensed Refills Start Date [...] Active DilTIAZem HCl ER Beads 360 MG [id number]:HTN, goal below 130/80 TAKE 1 CAPSULE EVERY [...] less than 7.5% ([facility]) Take 0.5 Tabs by mouth [...] Pain, Mild. 120 Tab 0 02/09/2019 Active documented as of this encounter (statuses as of 03/10/2019) Active Problems Problem Noted Date Body mass [...] as of this encounter (statuses as of 03/10/2019) Resolved Problems Problem Noted Date Resolved Date [...] Hypoxemia 10/08/2011 10/30/2015 Genetic Sleep Disorder Research Other*[id number] 07/25/2011 05/15/2016 Diverticulitis of colon 07/25/2011 01/06/20 [...] as of this encounter (statuses as of 03/10/2019) Immunizations Name Administration Dates Next Due Hepatitis [...] Encounters Date Type Specialty Care Team Description 03/17/2019 Nutrition Services Gastroenterology Nita Enriquez, RDN [address] [place] [address] [phone] 03/30/2019 Office Visit Podiatry Chantel Moore, LEONARD [address] [place] [id number] 03/31/2019 Office Visit Gastroenterology Zulay Eagle, [address] [facility] [place] [address] [phone] 04/09/2019 Office Visit Internal Medicine Marcela Pinto MD [address] [place] [address] [phone] 06/01/2019 Imaging Radiology 06/28/2019 Nurse Only [facility] [place], Nurse Annual [facility] Sc[facility] [address] [place] [address] [phone] Health Maintenance Due Date Last Done Comments [...] Procedure Name Priority Date/Time Associated Diagnosis Comments CARDIOLOGY SCANNED RESULT 02/23/2019 documented in this encounter Results * CARDIOLOGY SCANNED RESULT (02/23/2019) Specimen Narrative Performed At documented in this encounter Advance Directives Documents on File Type Date Recorded Patient Insurance Office Manager Expl anation Advanced Directive Advanced Directive Advanced Directive Advanced Directive Advanced Directive Advanced Directive Advanced Directive Advanced Directive Advanced Directive Advanced Directive Advanced Directive Advanced Directive Advanced Directive Advanced Directive
--- OUTSIDE RECORDS SUMMARY | 2023-06-18 03:38 | External Medical Summary | Summary of Care ---
Author Name Unknown Organization [place] [address] Care Team Providers Care Application Support Name Role Phone Alex Pinto MD Primary Care Provider [phone] Reason for Visit * Reason Comments eRx-Medication Refill Encounter Details Date Type Department Care Team Description 03/11/2019 Refill General Internal Medicine [facility] [address] [place] [address] Briseyda Barber MD [address] [facility] [place] [address] Allergies Active Allergy Reactions Severity Noted Date Comments Valsartan 07/10/2010 Enalapril 05/21/2006 Escitalopram Oxalate Nausea/vomiting 10/11/2009 Nauseated Iodinated Diagnostic Agents Nausea/vomiting 05/2010 IV Contrast Lisinopril 05/21/2006 Metoprolol Tartrate 11/18/2006 Made pulse low [place] Oil-Black Currant-Vit E 07/10/2010 Verapamil 03/21/2004 Bupropion Hcl 10/30/2009 Makes pt sick in the stomach documented as of this encounter (statuses as of 03/12/2019) Medications Medication Sig Dispensed Refills Start Date [...] SAME TIME EVERY DAY 30 Cap 5 05/04/201 3 Active XOPENEX HFA 45 MCG/ACT IN [...] 2 Bottle 3 6 Active Glucose Blood (EYIMY CONTOUR TEST) STRPIndications:Typ e 2 diabetes mellitus with hemoglobin A1c goal of less than 7.0% ([facility]) USE TO TEST BLOOD SUGAR 4 [...] :Asthma with severity to be determined,COPD, moderate ([facility]) USE ONE NEBULIZER TREATMENT TWICE A DAY NEEDED FOR WORSENING ASTHMA. J45.909, J44.9 225 mL 1 8 Active omeprazole (PRILOSEC) 20 MG CPDRIndications:Isc hemic colitis ([facility]) TAKE 1 CAPSULE TWICE DAILY 180 [...] Active DilTIAZem HCl ER Beads 360 MG [id number]:HTN , goal below 130/80 TAKE 1 CAPSULE [...] of less than 7.5% ([facility]) Take 0.5 Tabs by mouth daily [...] EVERY DAY 90 Cap 1 9 Active Terazosin HCl 2 MG Capsule TAKE ONE CAPSULE BY MOUTH EVERY DAY 90 Cap 1 8 03/11/20 19 Discontinued documented as of this encounter (statuses as of 03/12/2019) Active Problems Problem Noted Date Body mass [...] as of this encounter (statuses as of 03/12/2019) Resolved Problems Problem Noted Date Resolved Date [...] Hypoxemia 10/08/2011 10/30/2015 Genetic Sleep Disorder Research Other*[id number] 07/25/2011 05/15/2016 Diverticulitis of colon 07/25/2011 01/06/20 [...] as of this encounter (statuses as of 03/12/2019) Immunizations Name Administration Dates Next Due Hepatitis [...] Telephone Encounter - Alex Pinto MD - 03/12/2019 12:46 PM EDT Signed Prescriptions: Disp Refills Terazosin HCl 2 MG Capsule 90 Cap 1 Sig: TAKE 1 CAPSULE BY MOUTH EVERY DAY Authorizing Provider: ALEX PINTO * Telephone Encounter - Dodie Carson LPN - 03/12/2019 10:16 AM EDT Pending Prescriptions: Disp Refills Terazosin HCl 2 MG Capsule [Pharmacy Med *90 Cap 1 Sig: TAKE 1 CAPSULE BY MOUTH EVERY DAY * Telephone Encounter - Dodie Carson LPN - 03/12/2019 10:15 AM EDT Pending Prescriptions: Disp Refills Terazosin HCl 2 MG Capsule [Pharmacy Med *90 Cap 1 Sig: TAKE 1 CAPSULE BY MOUTH EVERY DAY Last Office Visit: 01/05/2019 Next Office Visit: 04/09/2019 Scheduled Provider(s): Alex Pinto MD If no future appointments scheduled, and last appointment is greater than a year ago, please schedule patient for a follow-up appointment Last date the medication was ordered: 09/07/18 Patient Phone Numbers Labs: Lab Results Component [...] Team Description 03/17/2019 Nutrition Services Gastroenterology Nita Enriquez RDN [address] [place] [address] 03/30/2019 Office Visit Podiatry Chantel Moore DPM [address] [place] [address] 03/31/2019 Office Visit Gastroenterology Zulay Eagle DO [address] [facility] [place] [address] [phone] 04/09/2019 Office Visit Internal Medicine Alex Pinto MD [address] [place] [address] [phone] 06/01/2019 Imaging Radiology 06/28/2019 Nurse Only [facility] [place], Nurse Annual Wellness Scenery [address] [place] [address] [phone] Health Maintenance Due Date Last Done Comments [...] Documents on File Type Date Recorded Patient Nursing Support Worker Expl anation Advanced Directive Advanced Directive Advanced Directive Advanced Directive Advanced Directive Advanced Directive Advanced Directive Advanced Directive Advanced Directive Advanced Directive Advanced Directive Advanced Directive Advanced Directive Advanced Directive
--- OUTSIDE RECORDS SUMMARY | 2023-06-18 03:39 | External Medical Summary | Summary of Care ---
Author Name Unknown Organization [place] [address] Care Team Providers Care City Designer Name Role Phone Marcela Pinto MD Primary Care Provider [phone] Reason for Visit * Reason Comments Hospital Follow-Up Encounter Details Date Type Department Care Team Description 01/05/2019 Office Visit General Internal Medicine [facility] [address] [place], [place] [id number] Marcela Pinto MD [address] [place] [address] [phone] Diverticulitis of colon*; DM type 2 nursing care encounter ([facility]); Risk and functional assessment; HTN, goal below 140/90; Pitting edema; COPD, moderate ([facility]); Body mass index (BMI) of 40.0 to 44.9 in adult ([facility]); Type 2 diabetes mellitus with diabetic neuropathy, unspecified ([facility]); Morbid obesity with BMI of 40.0-44.9, adult ([facility]); Type 2 diabetes mellitus with hemoglobin A1c goal of less than 7.5% ([facility]) Allergies Active Allergy Reactions Severity Noted Date Comments Valsartan 07/10/2010 Enalapril 05/21/2006 Escitalopram Oxalate Nausea/vomiting 10/11/2009 Nauseated Iodinated Diagnostic Agents Nausea/vomiting 05/2010 IV Contrast Lisinopril 05/21/2006 Metoprolol Tartrate 11/18/2006 Made pulse low [place] Oil-Black Currant-Vit E 07/10/2010 Verapamil 03/21/2004 Bupropion Hcl 10/30/2009 Makes pt sick in the stomach documented as of this encounter (statuses as of 01/05/2019) Medications Medication Sig Dispensed Refills Start Date [...] mouth daily. 90 Tab 3 8 Active zafirlukast (ACCOLATE) 20 MG TabletIndications:A sthma with severity to be determined Take 1 Tab by mouth daily. 90 Tab 0 8 Active Nebulizers (NEBULIZER COMPRESSOR) [facility] Inhale via nebulizer. Use as directed. Please [...] Active DilTIAZem HCl ER Beads 360 MG [id number]:HTN , goal below 130/80 TAKE 1 CAPSULE [...] before breakfast. 90 Tab 3 9 Active glimepiride (AMARYL) 4 MG TabletIndications:T ype 2 diabetes mellitus with hemoglobin A1c goal of less than 7.5% ([facility]) TAKE 1 TABLET BY MOUTH IN THE MORNING AND 1/2 TABLET BY MOUTH IN THE EVENING 135 Tab 1 8 01/06/20 19 Discontinued PredniSONE (DELTASONE) 50 MG TabletIndications:A nemia, unspecified type Take 1 tablet by mouth 13 hr, 7 hr, and [address] scan. 3 Tab 0 8 01/06/20 19 Discontinued Meloxicam (MOBIC) 15 MG TabletIndications:N tamiko pain,Pain in joint of right shoulder Take 1 Tab by mouth daily. for pain. 30 Tab 11 9 01/06/20 19 Discontinued TiZANidine HCl (ZANAFLEX) 2 MG TabletIndications:S pasm of muscle Take 1 Tab by mouth every 8 hours as needed for Muscle spasms. 30 Tab 0 9 01/06/20 19 Discontinued documented as of this encounter (statuses as of 01/05/2019) Active Problems Problem Noted Date Body mass [...] as of this encounter (statuses as of 01/05/2019) Resolved Problems Problem Noted Date Resolved Date [...] Hypoxemia 10/08/2011 10/30/2015 Genetic Sleep Disorder Research Other*[id number] 07/25/2011 05/15/2016 Diverticulitis of colon 07/25/2011 01/06/20 [...] as of this encounter (statuses as of 01/05/2019) Immunizations Name Dates Previously Given Next Due [...] Vital Signs Vital Sign Reading Time Taken Blood Pressure 128/80 01/05/2019 2:42 PM EDT Pulse 70 01/05/2019 2:42 PM EDT Temperature 36.4 C (97.5 F) 01/05/2019 2 :42 PM EDT Respiratory Rate 16 01/05/2019 2:42 PM EDT Oxygen Saturation - - Inhaled Oxygen Concentration - - Weight 112.3 kg (247 lb 9.6 oz) 019 2:42 PM EDT Height 164 cm (5' 4.57") 01/05/2019 2:4 2 PM EDT Body Mass Index 41.76 01/05/2019 2:42 PM EDT documented in this encounter Patient Instructions * Patient Instructions* Lilli Castro LPN - 01/05/2019 2:40 PM EDT Diabetes: Keeping Feet Healthy Inspect your feet [...] calluses yourself. Talk to your doctor or senior director insight (a doctor who specializes in foot care) [...] the area doesnt appear to be healing. [id number] [employer], [address] [place] [address], [place] [address]. All rights reserved. This information is not intended as a substitute for professional medical care. Always follow your healthcare professional's instructions. Patient Instructions - Fall Prevention (This education [...] 10 times. Repeat this throughout the day. [employer] Patient Education Copyright 2008 - 2010 Joceline [...] - 2010 Joceline except where otherwise noted. documented in this encounter Progress Notes * Lilli Castro LPN - 01/05/2019 2:40 PM EDT DM Foot Exam completed today. Provider aware. Lilli Castro LPN Socks and Shoes Removed for Annual Diabetic Foot Screening RIGHT FOOT: No Reddened, Cracking, Or Open Areas Noted. RIGHT Dorsalis Pedis Pulse: Palpable RIGHT Posterior Tibial Pulse: Palpable RIGHT Monofilament:Patient reports feeling monofilament pressure on plantar surface of foot LEFT FOOT: No Reddened, Cracking or Open Areas Noted. LEFT Dorsalis Pedis Pulse: Palpable LEFT Posterior Tibial Pulse: Palpable LEFT Monofilament: Patient reports feeling monofilament pressure on plantar surface of foot * Marcela Pinto MD - 01/05/2019 1:49 PM EDT HPI: Nina Harrington is a 78 year old female with hx of COPD, uses oxygen 4 lit at night, HTN, Hyperlipidemia, recurrent diveritculitis, Obesity, who presents with: No chief complaint on file. Pt is here for the hospital follow up. Chart reviewed from the hospital including admission note, Hand P, consult notes, labs, EKG, imaging and discharge note including discharge meds. Patient states she is feeling better since went back home. Pt states she took Cipro an dFlagyl for 10 days and finished the meds this am. Pt was admitted to the hospital on 12/25/18 and was discharged on 12/26/18 from ER. Pt states prior to it pt was seen by GI at [facility] and was referred to [facility] for Ct abd pelvis, was given Amoxicillin which didn't help her. After taking it for a week, as her s/s were not improving, pt ended up in [facility]. Labs showed wbc 13,000, normal HB, normal CMP, UA, culture negative. States she had corn few weeks back after long time. Advised diet, hydration. Last surgical opinion few years back who recommended colectomy which she doesn't prefer, doesn't want to f/u with surgeon. Last colonoscopy last year. Admission Diagnosis : Acute sigmoid diverticulitis. Asthma well controlled, last PFT few months back, follows with dr. Solic. States Vicodin helps backpain, jointpains. Pt has been followed up by special education case manager and specialists. 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 COPD, moderate ([facility]) J44.9 Allergic rhinitis J30.9 Diverticulitis of colon K57.32 Nocturnal hypoxia G47.34 Sleep apnea, obstructive G47.33 Incisional hernia K43.2 ACEI/ARB contraindicated [id number] HTN, goal below 140/90 I10 Hyperlipidemia with target LDL less than 100 E78.5 Controlled substance agreement signed Z79.899 Type 2 diabetes mellitus with hemoglobin A1c goal of less than 7.5% ([facility]) E11.9 Hypercalcemia E83.52 Elevated plasma metanephrines R79.89 Lower GI bleed K92.2 Irritable bowel syndrome with constipation K58.1 Ischemic colitis ([facility]) K55.9 Body mass index (BMI) of 40.0 to 44.9 in adult ([facility]) Z68.41 Current Outpatient Medications Medication Sig Dispense Refill HYDROcodone-acetaminophen 5-325 mg per tab 5-325 MG per tablet Take 1 Tab by mouth every 6 hours asneeded for Pain, Mild. 120 Tab 0 predniSONE (DELTASONE) 50 MG Tablet Take 1 tablet by mouth 13 hr, 7 hr, and [address] scan. 3 Tab 0 DilTIAZem HCl ER Beads 360 MG CP24 TAKE 1 CAPSULE EVERY DAY 90 Cap 1 RaNITidine HCl 300 MG Tablet Take 0.5 Tabs by mouth at bedtime. 90 Tab 1 ondansetron ODT (ZOFRAN) 8 MG TBDP DISSOLVE 1 TABLET ON TONGUE EVERY 8 HOURS NEEDED FOR NAUSEA 60 Tab 5 TiZANidine HCl (ZANAFLEX) 2 MG Tablet Take 1 Tab by mouth every 8 hours as needed for Muscle spasms. 30 Tab 0 dicyclomine (BENTYL) 20 MG Tablet Take 1 Tab by mouth daily. 90 Tab 0 Meloxicam (MOBIC) 15 MG Tablet Take 1 Tab by mouth daily. for pain. 30 Tab 11 Nebulizers (NEBULIZER COMPRESSOR) MISC Inhale via nebulizer. Use as directed. Please give tubing to use with it. 1 Each 1 zafirlukast (ACCOLATE) 20 MG Tablet Take 1 Tab by mouth daily. 90 Tab 0 atorvaSTATin (LIPITOR) 40 MG Tablet Take 1 Tab by mouth daily. 90 Tab 3 omeprazole (PRILOSEC) 20 MG CPDR TAKE 1 CAPSULE TWICE DAILY 180 Cap 1 Terazosin HCl 2 MG Capsule TAKE ONE CAPSULE BY MOUTH EVERY DAY 90 Cap 1 PredniSONE (DELTASONE) 50 MG Tablet Take 1 tablet by mouth 13 hr, 7 hr, and [address] scan. 3 Tab 0 albuterol sulfate (PROVENTIL) (2.5 MG/3ML) 0.083% nebulizer solution USE ONE NEBULIZER TREATMENT TWICE A DAY NEEDED FOR WORSENING ASTHMA. J45.909, J44.9 225 mL 1 COMBIVENT RESPIMAT 20-100 MCG/ACT Inhaler TAKE 1 PUFF BY MOUTH 4 TIMES A DAY 4 g 11 furosemide (LASIX) 40 MG Tablet TAKE 1 TABLET BY MOUTH DAILY NEEDED FOR EDEMA 30 Tab 11 glimepiride (AMARYL) 4 MG Tablet TAKE 1 TABLET BY MOUTH IN THE MORNING AND 1/2 TABLET BY MOUTH IN THE EVENING 135 Tab 1 KLOR-CON M20 20 MEQ TBCR TAKE [...] Contrast Lisinopril Metoprolol Tartrate Made pulse low [place] Oil-Black Currant-Vit E Verapamil Wellbutrin [Bupropion Hcl] [...] file Highest education level: Not on file Social Needs Financial resource strain: Not on file Food insecurity - worry: Not on file Food insecurity - inability: Not on file Transportation needs - medical: Not on file Transportation needs - non-medical: Not on file Occupational History Occupation: Disability [...] except as per hpi. OBJECTIVE: Blood pressure 128/80, pulse 70, temperature 36.4 C (97.5 F), temperature source Tympanic, resp. rate 16, height 1.64 m (5' 4.57"), weight 112.3 kg (247 lb 9.6 oz). PHYSICAL EXAM: HEENT: PERRLA, EOMI, anicteric sclera, b/l tympanic membrane is pearly white, no erythema, no pharyngeal erythema, no lymphadenopathy, neck supple CVS: RRR, no murmurs, rubs or gallops, s1 s 2normal. RESP: clear to auscultation, no wheezing or crackles ABD: soft, NT/ND EXT: Bl trace edema cyanosis, peripheral pulses palpable bilaterally ASSESSMENT AND PLAN: K57.32 Diverticulitis of colon (primary encounter diagnosis) Much better. Finished Cipro And Flagyl., E11.9 Dm type 2 nursing care encounter ([facility]) Plan: Other: 1. Diabetes foot exam Z13.9 Risk and functional assessment Plan: Nursin. Pat scrn for fall risk I10 Htn, goal below 140/90 R60.9 Pitting edema J44.9 Copd, moderate ([facility]) Stable on current inhalers. Follows with Dr. Bhatti. Z68.41 Body mass index (bmi) of 40.0 to 44.9 in adult ([facility]) K55.9 Ischemic colitis ([facility]) E11.40 Type 2 diabetes mellitus with diabetic neuropathy, unspecified ([facility]) Pt is on Amaryl 4 mg orally half pill nce daily. Diet discussed. E66.01, Z68.41 Morbid obesity with bmi of 40.0-44.9, adult ([facility]) documented in this encounter Plan of Treatment Upcoming Encounters Date Type Specialty Care Team Description 01/18/2019 Nutrition Services Gastroenterology Nita Enriquez RDN [address] [place] [address] [phone] 02/04/2019 Office Visit Internal Medicine Marcela Pinto MD [address] [place] [address], [place] [address] [phone] 03/11/2019 Office Visit Podiatry Chantel Moore DPM [address] [place] [address] 03/31/2019 Office Visit Gastroenterology Zulay Eagle, DO [address] [place] [address] [phone] 06/01/2019 Imaging Radiology Health Maintenance Due Date Last Done Comments DIABETES-EYE EXAM 08/04/2018 08/04/2017, , 09/23/2011, Additional history exists DIABETES-FOOT EXAM 01/16/2019 01/16/2018, 0 11/15/2016, 02/23/2016, Additional history exists DIABETES-HGBA1C EVERY 6 MONTHS 01/25/2019 07/27/2018, 01/14/2018, 11/20/2017, Additional history exists DIABETES-URINE MICROALBUMIN EVERY 12 MONTHS 12/26/2019 12/25/2018, 07/27/2018, 03/15/2018, Additional history exists DXA-EVERY 5 YRS-USE SMARTSET# [...] Diverticulitis of colon (without mention of hemorrhage) DM type 2 nursing care encounter ([facility]CC) Type II or unspecified type diabetes mellitus without mention of complication, not stated as uncontrolled Risk and functional assessment Screening for unspecified condition HTN, goal below 140/90 Unspecified essential hypertension Pitting edema Edema COPD, moderate ([facility]CC) Chronic airway obstruction, not elsewhere classified Body mass index (BMI) of 40.0 to 44.9 in adult ([facility]CC) Type 2 diabetes mellitus with diabetic neuropathy, unspecified ([facility]CC) Morbid obesity with BMI of 40.0-44.9, adult ([facility]CC) Morbid obesity Type 2 diabetes mellitus with hemoglobin A1c goal of less than 7.5% ([facility]CC) documented in this encounter Advance Directives Patient has advance care planning documents on file. For more information, please contact: [place] [id number]
--- OUTSIDE RECORDS SUMMARY | 2023-06-18 03:39 | External Medical Summary | Summary of Care ---
Author Name Unknown Organization [place] [address] Care Team Providers Care Senior Director Finance Name Role Phone Marcela Pinto MD Primary Care Provider [phone] Encounter Details Date Type Department Care Team Description 12/28/2018 Orders Only General Internal Medicine [facility] [address] [facility] [address] [place], [place] [id number] Marcela Pinto MD [address] [facility] [address] [place], [place] [id number] Allergies Active Allergy Reactions Severity Noted Date Comments Valsartan 07/10/2010 Enalapril 05/21/2006 Escitalopram Oxalate Nausea/vomiting 10/11/2009 Nauseated Iodinated Diagnostic Agents Nausea/vomiting 05/2010 IV Contrast Lisinopril 05/21/2006 Metoprolol Tartrate 11/18/2006 Made pulse low [place] Oil-Black Currant-Vit E 07/10/2010 Verapamil 03/21/2004 Bupropion Hcl 10/30/2009 Makes pt sick in the stomach documented as of this encounter (statuses as of 12/28/2018) Medications Medication Sig Dispensed Refills Start Date [...] other day 60 Tab 11 03/05/2018 Active glimepiride (AMARYL) 4 MG TabletIndications:Ty pe 2 diabetes mellitus with hemoglobin A1c goal of less than 7.5% (HCC) TAKE 1 TABLET BY MOUTH IN THE MORNING AND 1/2 TABLET BY MOUTH IN THE EVENING 135 Tab 1 03/20/2018 Active KLOR-CON M20 20 MEQ TBCRIndications:HTN, goal [...] J45.909, J44.9 225 mL 1 07/17/2018 Active PredniSONE (DELTASONE) 50 MG TabletIndications:An emia, unspecified type Take 1 tablet by mouth 13 hr, 7 hr, and [address] scan. 3 Tab 0 08/13/2018 Active Terazosin HCl 2 MG Capsule TAKE ONE CAPSULE BY MOUTH EVERY DAY 90 Cap 1 09/07/2018 Active omeprazole (PRILOSEC) 20 MG CPDRIndications:Isch emic colitis (HCC) TAKE 1 CAPSULE TWICE DAILY 180 Cap 1 09/07/2018 Active atorvaSTATin (LIPITOR) 40 MG TabletIndications:Hy perlipidemia with target LDL less than 100 Take 1 Tab by mouth daily. 90 Tab 3 09/07/2018 Active zafirlukast (ACCOLATE) 20 MG TabletIndications:As thma with severity to be determined Take 1 Tab by mouth daily. 90 Tab 0 10/07/2018 Active Meloxicam (MOBIC) 15 MG TabletIndications:Ne ck pain,Pain in joint of right shoulder Take 1 Tab by mouth daily. for pain. 30 Tab 11 11/12/2018 Active Nebulizers (NEBULIZER COMPRESSOR) [facility] Inhale via nebulizer. Use as directed. Please give tubing to use with it. 1 Each 1 11/12/2018 Active dicyclomine (BENTYL) 20 MG TabletIndications:Ch ronic constipation Take 1 Tab by mouth daily. 90 Tab 0 11/16/2018 Active TiZANidine HCl (ZANAFLEX) 2 MG TabletIndications:Sp asm of muscle Take 1 Tab by mouth every 8 hours as needed for Muscle spasms. 30 Tab 0 11/19/2018 Active ondansetron ODT (ZOFRAN) 8 MG TBDPIndications:Naus ea DISSOLVE 1 TABLET ON TONGUE EVERY 8 HOURS NEEDED FOR NAUSEA 60 Tab 5 11/24/2018 Active RaNITidine HCl 300 MG Tablet Take 0.5 Tabs by mouth at bedtime. 90 Tab 1 11/25/2018 Active DilTIAZem HCl ER Beads 360 MG [id number]:HTN, goal below 130/80 TAKE 1 CAPSULE EVERY [...] Pain, Mild. 120 Tab 0 12/23/2018 Active documented as of this encounter (statuses as of 12/28/2018) Active Problems Problem Noted Date Body mass index (BMI) of 40.0 to 44.9 in adult 07/20/2018 Overview: Per Obesity protocol #1 Ischemic colitis 10/01/2017 Lower GI bleed 04/21/2017 Irritable bowel syndrome with constipati on 04/21/2017 [...] Refusing CPAP AHP Diverticulitis of colon 07/25/2011 COPD, moderate 07/19/2011 Overview: Dr Bhatti every 6 months Allergic rhinitis 07/19/2011 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 Asthma with severity to be determined Carpal tunnel syndrome EDEMA dependent, ankles Generalized osteoarthritis ACEI/ARB contraindicated documented as of this encounter (statuses as of 12/28/2018) Resolved Problems Problem Noted Date Resolved Date Severe obesity with body mas s index (BMI) of 35.0 to 39.9 with serious comorbidity 05/15/2016 08/28/2018 Overview: ICD-10 update of inactive diagnosis DM (diabetes mellitus), type 2 08/07/2015 0 06/25/2017 Nausea 09/05/2012 06/25/2017 Overview: ICD-10 update of inactive term HTN, GOAL BELOW 140/80 06/01/2012 6 Overview: Per HTN Protocol #27. Hypoxemia 10/08/2011 10/30/2015 Genetic Sleep Disorder Research Other*[id number] 07/25/2011 05/15/2016 Obesity, morbid (more than 1 00 lbs [...] HYPERTENSION 08/18/2009 Overview: Modified per HTN Taxonomy. OBESITY, UNSPECIFIED 01/09/2010 Overview: Per Obesity Taxonomy Mixed dyslipidemia 09/19/2009 Overview: Per Lipid Taxonomy. documented as of this encounter (statuses as of 12/28/2018) Immunizations Name Dates Previously Given Next Due [...] [address] [place] [address] [phone] 02/04/2019 Office Visit Internal Medicine Marcela Pinto MD 200 [facility] [address] [phone] 03/11/2019 Office Visit Podiatry Chantel Moore DPM [address] [place] [address] 03/31/2019 Office Visit Gastroenterology Zulay Eagle DO [address] [facility] [place] [address] [phone] 06/01/2019 Imaging Radiology Health Maintenance Due Date Last Done Comments DIABETES-EYE EXAM 08/04/2018 08/04/2017, , 09/23/2011, Additional history exists DIABETES-FOOT EXAM 01/16/2019 01/16/2018, 0 11/15/2016, 02/23/2016, Additional history exists DIABETES-HGBA1C EVERY 6 MONTHS 01/25/2019 07/27/2018, 01/14/2018, 11/20/2017, Additional history exists DIABETES-URINE MICROALBUMIN EVERY 12 MONTHS 07/27/2019 07/27/2018, 03/15/2018, 11/20/2017, Additional history exists DXA-EVERY 5 YRS-USE SMARTSET# [...] Priority Date/Time Associated Diagnosis Comments CHEMISTRY-OUTSIDE Routine 12/25/2018 documented in this encounter Results * CHEMISTRY-OUTSIDE (12/25/2018) CREATININE-OUTSIDE LAB 0.98 0.6 - 1.2 MG/DL OU [facility] LAB (SEE SCANNED REPORT) GFR ESTIMATED-OUTSIDE LAB 54.5 M/MIN [facility]U [facility] (SEE SCANNED REPORT) POTASSIUM-OUTSIDE LAB 4.5 3.5 - 5.1 MMOL [facility]S [facility] (SEE SCANNED REPORT) GLUCOSE-OUTSIDE LAB 109(A) 70 - 99 MG/DL OUTSIDE LAB (SEE SCANNED REPORT) HOURS FASTING OUTSIDE LAB (S EE SCANNED REPORT) TRIGLYCERIDES-OUTSIDE LAB [facility] (SEE SCANNED REPORT) CHOLESTEROL-OUTSIDE LAB [facility] (SEE SCANNED REPORT) HDL-OUTSIDE LAB OUTSIDE LAB (SEE SCANNED REPORT) CHOL/HDL RATIO-OUTSIDE LAB O UTSIDE LAB (SEE SCANNED REPORT) LDL (CALCULATED)-OUTSIDE LAB OUTSIDE LAB (SEE SCANNED REPORT) LDL (DIRECT MEASURE)-OUTSIDE LAB OUTSIDE LAB (SEE SCANNED REPORT) HEMOGLOBIN, C1I-FJSQSSU LAB OUTSIDE LAB (SEE SCANNED REPORT) PHOSPHORUS-OUTSIDE LAB OUTSI DE LAB (SEE SCANNED REPORT) PTH-OUTSIDE LAB OUTSIDE LAB (SEE SCANNED REPORT) MICROALBUMIN RATIO-OUTSIDE LAB OUTSIDE LAB (SEE SCANNED REPORT) PROTEIN, UA-OUTSIDE LAB NEG NEG [facility] (SEE SCANNED REPORT) HEMOGLOBIN-OUTSIDE LAB 11.5(A) 12.0 - 16.0 G/DL O UTSIDE LAB (SEE SCANNED REPORT) CHEMISTRY COMMENT-OUTSIDE LAB Comment:ED [facility]-CMP,LIPASE,CBC D,URINE OUTSIDE LAB (SEE SCANNED REPORT) Narrative Performed At Performing Organization Address City/State/Zipcod e Phone Number OUTSIDE LAB (SEE SCANNED REPORT) documented in this encounter Advance Directives Patient has advance care planning documents on file. For more information, please contact: [place] [phone]
--- OUTSIDE RECORDS SUMMARY | 2023-06-18 03:39 | External Medical Summary | Summary of Care ---
Author Name Unknown Organization [place] [address] Care Team Providers Care Bag Filler Machine Operator Name Role Phone Marcela Pinto MD Primary Care Provider [phone] Reason for Visit * Reason Comments Medical Records Request Encounter Details Date Type Department Care Team Description 12/21/2018 Telephone Gastroenterology, [facility] [address] [facility] [place] [address] Courteny Sprague CRNP 132 [facility] [place] [address] Medical Records Request Allergies Active Allergy Reactions Severity Noted Date Comments Valsartan 07/10/2010 Enalapril 05/21/2006 Escitalopram Oxalate Nausea/vomiting 10/11/2009 Nauseated Iodinated Diagnostic Agents Nausea/vomiting 05/2010 IV Contrast Lisinopril 05/21/2006 Metoprolol Tartrate 11/18/2006 Made pulse low [place] Oil-Black Currant-Vit E 07/10/2010 Verapamil 03/21/2004 Bupropion [...] other day 60 Tab 11 8 Active glimepiride (AMARYL) 4 MG TabletIndications:T ype 2 diabetes mellitus with hemoglobin A1c goal of less than 7.5% (HCC) TAKE 1 TABLET BY MOUTH IN THE MORNING AND 1/2 TABLET BY MOUTH IN THE EVENING 135 Tab 1 8 Active KLOR-CON M20 20 MEQ TBCRIndications:HTN [...] J45.909, J44.9 225 mL 1 8 Active PredniSONE (DELTASONE) 50 MG TabletIndications:A nemia, unspecified type Take 1 tablet by mouth 13 hr, 7 hr, and [address] scan. 3 Tab 0 8 Active Terazosin HCl 2 MG Capsule [...] mouth daily. 90 Tab 0 8 Active Meloxicam (MOBIC) 15 MG TabletIndications:N tamiko pain,Pain in joint of right shoulder Take 1 Tab by mouth daily. for pain. 30 Tab 11 9 Active Nebulizers (NEBULIZER COMPRESSOR) [facility] Inhale via nebulizer. Use as directed. Please give tubing to use with it. 1 Each 9 Active dicyclomine (BENTYL) 20 MG TabletIndications:C hronic constipation Take 1 Tab by mouth daily. 90 Tab 0 9 Active TiZANidine HCl (ZANAFLEX) 2 MG TabletIndications:S pasm of muscle Take 1 Tab by mouth every 8 hours as needed for Muscle spasms. 30 Tab 0 9 Active ondansetron ODT (ZOFRAN) 8 MG TBDPIndications:David sea DISSOLVE 1 TABLET ON TONGUE EVERY 8 HOURS NEEDED FOR NAUSEA 60 Tab 5 9 Active RaNITidine HCl 300 MG Tablet Take 0.5 Tabs by mouth at bedtime. 90 Tab 1 9 Active DilTIAZem HCl ER Beads 360 MG QH12Vjqekjupuzn:HTN , goal below 130/80 TAKE 1 CAPSULE [...] for Pain, Mild. 120 Tab 0 9 12/23/19 19 Discontinued amoxicillin-clavula laura (AUGMENTIN) 875-125 MG per Tablet Take 1 Tab by mouth every 12 hours for 7 days. 14 Tab 0 9 12/26/19 19 documented as of this encounter (statuses as [...] Hypoxemia 10/08/2011 10/30/2015 Genetic Sleep Disorder Research Other*[id number] 07/25/2011 05/15/2016 Obesity, morbid (more than 1 [...] Telephone Encounter - Frank Clay OSA - 12/28/2018 2:11 PM EDT Records scanned. * Telephone Encounter - Cristiane Rapp OSA - 12/28/2018 11:39 AM EDT Spoke to Stephani at [facility] med records, will fax over records. * Telephone Encounter - Courtney Sprague CRNP - 12/28/2018 11:36 AM EDT Can we get ED records and CT imaging if they took any to review AMS * Telephone Encounter - Radha Valencia, RN - 12/28/2018 10:39 AM EDT I called and spoke with patient for a follow up. She did go to the ED on Friday. She states, " They switched my antibiotics to Flagyl and Cipro, and my side still hurts. The pills are making me stick to my stomach." I encouraged patient to take after eating and with lots of water. Daniel LAO. * Telephone Encounter - Courtney Sprague CRNP - 12/25/2018 11:51 AM EDT Recommend ED AMS * Telephone Encounter - Tasha Duong LPN - 12/25/2018 10:51 AM EDT This nurse called pt, pt has been using the miralax, one capful daily, pt is drinking 6-8 glasses of water daily, pt is still taking the antibiotic - states she has 2 left and will continue to take them. Pt doesn't know if she has a fever- b/c she doesn't have a thermometer. Pt is complianing of 7/10 lower left side abdominal pain stating that it hurts to walk. This nurse explained to her severaltimes the importance to go to the ED to get evaluated. Pt stated that she was going to wait a little while stating that she feels like she has to have a Bm but isnt have a full bowel movement. Stating that She has been having small formed BM's since starting the miralax, denies hard abdomen, statesit hurts to press "hard" on it. Pt insists on waiting a while before going to the ED to get evaluated. This nurse stressed the importance since pain is worse than the other day - hard to walk and that maybe someone could try and take her temperature for her or get her a thermometer regarding her temp. * Telephone Encounter - Courtney Sprague CRNP - 12/25/2018 9:21 AM EDT Ok to use colace 100 mg twice daily or miralax 1 capful daily as needed Agree with good water intake Complete ABX as ordered If fever, abd pain worsens will need ED eval AMS * Telephone Encounter - Tasha Duong LPN - 12/24/2018 3:20 PM EDT Called pt per Courtney note below: Symptoms: abdominal pain- Left side , pt constipated, Bowel Movement Frequency: has not had a normal BM in 3 days, pt states " just having little reynaldo" Bowel Movement Consistency: hard Straining: yes Rectal Pain: no Blood in Stool: No Pt asking if she can take colace or miralax to help her have a BM. This nurse suggested miralax andto make sure she is drinking enough water. Asked pt to call us back and let us know if the miralax is helping. Courtney, any further recommendations? Please advise * Telephone Encounter - Courtney Sprague CRNP - 12/21/2018 12:45 PM EDT I called pt Started ABX Friday night Abd pain is improving No nausea, vomiting Tolerating oral No change in bowels No black or bloody stools No dysuria or hematuria No fevers Nursing can you please call the pt /Friday to check in I did discuss with her warning signs to go to the ED and that sometimes this will need to be treated w/ IV ABX but today she endorses improvement and no issue w/ taking the PO ABX NIECY Dill 12/21/2018 12:46 PM documented in this encounter Plan of Treatment Upcoming Encounters Date Type Specialty Care Team Description 01/18/2019 Nutrition Services Gastroenterology Nita Enriquez RDN [address] [place] [address] 02/04/2019 Office Visit Internal Medicine Marcela Pinto MD [address] [place] [address] [phone] 03/11/2019 Office Visit Podiatry Chantel Moore, [place] [address] [place] [address] [phone] 03/31/2019 Office Visit Gastroenterology Zulay Eagle, [address] [place] [address] [phone] 06/01/2019 Imaging Radiology Health Maintenance Due Date [...] filedocumented as of this encounter Advance Directives Patient has advance care planning documents on file. For more information, please contact: [place] [phone]
--- OUTSIDE RECORDS SUMMARY | 2023-06-18 03:39 | External Medical Summary | Summary of Care ---
Author Name Unknown Organization [place] [address] Care Team Providers Care Vehicle Modification Technician Name Role Phone Marcela Pinto MD Primary Care Provider [phone] Encounter Details Date Type Department Care Team Description 12/25/2018 Scan Encounter Unspecified Department <No scans attached> Allergies Active Allergy Reactions Severity Noted Date Comments Valsartan 07/10/2010 Enalapril 05/21/2006 Escitalopram Oxalate Nausea/vomiting 10/11/2009 Nauseated Iodinated Diagnostic Agents Nausea/vomiting 05/2010 IV Contrast Lisinopril 05/21/2006 Metoprolol Tartrate 11/18/2006 Made pulse low [place] Oil-Black Currant-Vit E 07/10/2010 Verapamil 03/21/2004 Bupropion [...] Tab 11 11/12/2018 Active Nebulizers (NEBULIZER COMPRESSOR) MISC Inhale via [...] Active DilTIAZem HCl ER Beads 360 MG GO63Hpidmwwovun:HTN, goal below 130/80 TAKE 1 CAPSULE EVERY [...] Hypoxemia 10/08/2011 10/30/2015 Genetic Sleep Disorder Research Other*[id number] 07/25/2011 05/15/2016 Obesity, morbid (more than 1 [...] [address] [place] [id number] 02/04/2019 Office Visit Internal Medicine Marcela Pinto MD [address] [place] [address] [phone] 03/11/2019 Office Visit Podiatry Chantel Moore DPM [address] [place] [address] 03/31/2019 [facility] Visit [facility] [address] [phone] 06/01/2019 Imaging Radiology Health Maintenance Due Date [...] For more information, please contact: [place] [phone]
--- OUTSIDE RECORDS SUMMARY | 2023-06-18 03:39 | External Medical Summary | Summary of Care ---
Author Name Unknown Organization [place] [address] Care Team Providers Care Supervisor Lead Burning Name Role Phone Marcela Pinto MD Primary Care Provider [phone] Reason for Visit * Reason Comments Previsit Planning Encounter Details Date Type Department Care Team Description 01/05/2019 Telephone General Internal Medicine [facility] [address] [place], [place] [id number] Marcela Pinto MD 200 [place] [address] [phone] Previsit Planning Allergies Active Allergy Reactions Severity Noted Date Comments Valsartan 07/10/2010 Enalapril 05/21/2006 Escitalopram Oxalate Nausea/vomiting 10/11/2009 Nauseated Iodinated Diagnostic Agents Nausea/vomiting 05/2010 IV Contrast Lisinopril 05/21/2006 Metoprolol Tartrate 11/18/2006 Made pulse low [place] Oil-Black Currant-Vit E 07/10/2010 Verapamil 03/21/2004 [...] Tab 0 8 Active Nebulizers (NEBULIZER COMPRESSOR) [facility] Inhale via nebulizer. Use as directed. Please [...] Active DilTIAZem HCl ER Beads 360 MG EE49Idjfbsqixsx:HTN , goal below 130/80 TAKE 1 CAPSULE [...] 135 Tab 1 8 01/06/20 19 Discontinued documented as of this [...] Hypoxemia 10/08/2011 10/30/2015 Genetic Sleep Disorder Research Other*[id number] 07/25/2011 05/15/2016 Diverticulitis of colon 07/25/2011 01/06/20 [...] Miscellaneous Notes * Telephone Encounter - Sigrid Luevano LPN - 01/05/2019 2:53 PM EDT Patient contacted for Care Gaps Comprehensive Care Outreach. Last Office Visit: 01/05/2019 Next Office Visit: 02/04/2019 Scheduled Provider(s): Marcela Pinto MD Health Maintenance Due Topic Date Due DIABETES-EYE EXAM 08/04/2018 DIABETES-FOOT EXAM 01/16/2019 DIABETES-HGBA1C EVERY 6 MONTHS 01/25/2019 Outreach action taken: Contacted: Left message. awv documented in this encounter Plan of Treatment Upcoming Encounters Date Type Specialty Care Team Description 01/18/2019 Nutrition Services Gastroenterology Nita Enriquez RDN [address] [place] [address] [phone] 02/04/2019 Office Visit Internal Medicine Marcela Pinto MD 200 [place] [address] [phone] 03/11/2019 Office Visit Podiatry Chantel Moore DPM [address] [place] [address] [phone] 03/31/2019 Office Visit Gastroenterology Zulay Eagle, DO 132 [facility] [place] [address] [phone] 06/01/2019 Imaging Radiology Health Maintenance Due Date [...] For more information, please contact: [place] [phone]
--- OUTSIDE RECORDS SUMMARY | 2023-06-18 03:39 | External Medical Summary | Summary of Care ---
Author Name Unknown Organization [place] [address] Care Team Providers Care Patient Access Manager Name Role Phone Marcela Pinto MD Primary Care Provider [phone] Reason for Visit * Reason Comments Emergency Department Follow-Up Encounter Details Date Type Department Care Team Description 12/29/2018 Telephone Ancillary [facility] Heather Bruin [address] [place], [place] [id number] Ngozi Mcadams, RN Emergency Department Follow-Up Allergies Active Allergy Reactions Severity Noted Date Comments Valsartan 07/10/2010 Enalapril 05/21/2006 Escitalopram Oxalate Nausea/vomiting 10/11/2009 Nauseated Iodinated Diagnostic Agents Nausea/vomiting 05/2010 IV Contrast Lisinopril 05/21/2006 Metoprolol Tartrate 11/18/2006 Made pulse low [place] Oil-Black Currant-Vit E 07/10/2010 Verapamil 03/21/2004 Bupropion Hcl 10/30/2009 Makes pt sick in the stomach documented as of this encounter (statuses as of 12/29/2018) Medications Medication Sig Dispensed Refills Start Date [...] Active DilTIAZem HCl ER Beads 360 MG [id number]:HTN, goal below 130/80 TAKE 1 CAPSULE EVERY [...] as of this encounter (statuses as of 12/29/2018) Active Problems Problem Noted Date Body mass [...] as of this encounter (statuses as of 12/29/2018) Resolved Problems Problem Noted Date Resolved Date [...] Hypoxemia 10/08/2011 10/30/2015 Genetic Sleep Disorder Research Other*[id number] 07/25/2011 05/15/2016 Obesity, morbid (more than 1 [...] as of this encounter (statuses as of 12/29/2018) Immunizations Name Dates Previously Given Next Due [...] encounter Miscellaneous Notes * Telephone Encounter - Ngozi Mcadams RN - 12/29/2018 11:30 AM EDT Phone Follow Up: The patient was contacted in regards to their recent er visit with Provider [facility] er, 4 day(s) ago, regarding abdominal pain How are your symptoms? Response: Patient state that she is feeling better. Taking medications as prescribed. Having a little bit of nausea. Patient only taking medications with water. Advised to take with food. Patient scheduled for a follow up on 01/05/2019. Advised to call if she has any questions or concerns. Ngozi Mcadams RN documented in this encounter Plan of Treatment Upcoming Encounters Date Type Specialty Care Team Description 01/05/2019 Office Visit Internal Medicine Marcela Pinto MD [address] [place] [address] [phone] 01/18/2019 Nutrition Services Gastroenterology Nita Enriquez RDN [address] [place] [address] [phone] 02/04/2019 Office Visit Internal Medicine Marcela Pinto MD [address] [place] [place] [address] [phone] 03/11/2019 Office Visit Podiatry Chantel Moore, [place] [address] [place] [address] 03/31/2019 Office Visit Gastroenterology Zulay Eagle, DO [address] [place] [address] [phone] 06/01/2019 Imaging Radiology Health Maintenance Due Date [...] For more information, please contact: [place] [phone]
--- OUTSIDE RECORDS SUMMARY | 2023-06-18 03:39 | External Medical Summary | Summary of Care ---
Author Name Unknown Organization [place] [address] Care Team Providers Care Subscription Clerk Name Role Phone Marcela Pinto MD Primary Care Provider [phone] Encounter Details Date Type Department Care Team Description 12/21/2018 Telephone Gastroenterology, [facility] [address] [facility] [place] [address] Courtney Sprague CRNP [address] [facility] [place] [address] Allergies Active Allergy Reactions Severity Noted Date Comments Valsartan 07/10/2010 Enalapril 05/21/2006 Escitalopram Oxalate Nausea/vomiting 10/11/2009 Nauseated Iodinated Diagnostic Agents Nausea/vomiting 05/2010 IV Contrast Lisinopril 05/21/2006 Metoprolol Tartrate 11/18/2006 Made pulse low [place] Oil-Black Currant-Vit E 07/10/2010 Verapamil 03/21/2004 Bupropion [...] Tab 11 9 Active Nebulizers (NEBULIZER COMPRESSOR) [facility] Inhale via nebulizer. Use as directed. Please [...] Active DilTIAZem HCl ER Beads 360 MG [id number]:HTN , goal below 130/80 TAKE 1 CAPSULE [...] Hypoxemia 10/08/2011 10/30/2015 Genetic Sleep Disorder Research Other*[id number] 07/25/2011 05/15/2016 Obesity, morbid (more than 1 [...] encounter Miscellaneous Notes * Telephone Encounter - Courtney Sprague CRNP - 12/28/2018 11:36 AM EDT Can we get ED records and CT imaging if they took any to review AMS * Telephone Encounter - Radha Valencia RN - 12/28/2018 10:39 AM EDT I called and spoke with patient for a follow up. She did go to the ED on Friday. She states, " They switched my antibiotics to Flagyl and Cipro, and my side still hurts. The pillsare making me stick to my stomach." I [...] [address] [place] [address] [phone] 02/04/2019 Office Visit Internal Medicine Marcela Pinto MD 200 [facility] [place] [facility] [place] [address] [phone] 03/11/2019 Office Visit Podiatry Chantel Moore DPM [address] [place] [address] [phone] 03/31/2019 Office Visit Gastroenterology Zulay Eagle, [address] [facility] [place] [address] [phone] 06/01/2019 Imaging Radiology Health Maintenance Due Date [...] For more information, please contact: [place] [phone]
--- OUTSIDE RECORDS SUMMARY | 2023-06-18 03:39 | External Medical Summary | Summary of Care ---
Author Name Unknown Organization [place] [address] Care Team Providers Care Sales And Management Trainee Name Role Phone Marcela Pinto MD Primary Care Provider [phone] Reason for Visit * Reason Comments Previsit Planning Previsit Planning Encounter Details Date Type Department Care Team Description 01/05/2019 Telephone General Internal Medicine [facility] [address] [place] [address] Marcela Pinto MD [address] [place] [address] [phone] Previsit Planning; Previsit Planning Allergies Active Allergy Reactions Severity Noted Date Comments Valsartan 07/10/2010 Enalapril 05/21/2006 Escitalopram Oxalate Nausea/vomiting 10/11/2009 Nauseated Iodinated Diagnostic Agents Nausea/vomiting 05/2010 IV Contrast Lisinopril 05/21/2006 Metoprolol Tartrate 11/18/2006 Made pulse low [place] Oil-Black Currant-Vit E 07/10/2010 Verapamil 03/21/2004 Bupropion Hcl 10/30/2009 Makes pt sick in the stomach documented as of this encounter (statuses as of 01/08/2019) Medications Medication Sig Dispensed Refills Start Date [...] Tab 0 8 Active Nebulizers (NEBULIZER COMPRESSOR) [facility] – [...] Active DilTIAZem HCl ER Beads 360 MG OW22Sqlbjbadoai:HTN , goal below 130/80 TAKE 1 CAPSULE [...] as of this encounter (statuses as of 01/08/2019) Active Problems Problem Noted Date Body mass [...] as of this encounter (statuses as of 01/08/2019) Resolved Problems Problem Noted Date Resolved Date [...] Hypoxemia 10/08/2011 10/30/2015 Genetic Sleep Disorder Research Other*[id number] 07/25/2011 05/15/2016 Diverticulitis of colon 07/25/2011 01/06/20 [...] as of this encounter (statuses as of 01/08/2019) Immunizations Name Dates Previously Given Next Due [...] encounter Miscellaneous Notes * Addendum Note - Sigrid Luevano LPN - 01/08/2019 12:57 PM EDT Addended by: SIGRID LUEVANO on: 01/08/2019 12:57 PM Modules accepted: Orders, SmartSet * Telephone Encounter - Sigrid Luevano LPN - 01/08/2019 12:55 PM EDT Patient contacted for Care Gaps Comprehensive Care Outreach. Last Office Visit: 01/05/2019 Next Office Visit: 04/09/2019 Scheduled Provider(s): Marcela Pinto MD Health Maintenance Due Topic Date Due DIABETES-HGBA1C EVERY 6 MONTHS 01/25/2019 Outreach action taken: Labs Ordered: HgbA1C Appointments Scheduled:AWV Contacted: Spoke with patient - * Telephone Encounter - Sigrid Luevano LPN [...] Team Description 01/18/2019 Nutrition Services Gastroenterology Nita Enriquez, RDN [address] [place] [address] [phone] 03/11/2019 Office Visit Podiatry Chantel Moore, DPWinston [address] [place], [place] [id number] 03/31/2019 Office Visit Gastroenterology Zulay Eagle, [address] [facility] [place] [address] [phone] 04/09/2019 Office Visit Internal Medicine Marcela Pitno MD [address] [place] [address] [phone] 06/01/2019 Imaging Radiology 06/28/2019 Nurse Only Ancillary Heather Nurse [facility] [address] [place] [address] [phone] Scheduled Tests Name Priority Associated Diagnoses Order S chedule HEMOGLOBIN A1C Routine Type 2 diabetes mellitus with hemoglobin A1c goal of less than 7.5% (HCC) Diabetes mellitus screening Expected: 01/08/2019, Expires: 01/09/2020 Health Maintenance Due Date Last Done Comments DIABETES-HGBA1C EVERY 6 MONTHS 01/25/2019 07/27/2018, 01/14/2018, 11/20/2017, Additional history exists DIABETES-EYE EXAM 09/14/2019 09/14/2018, [...] A1c goal of less than 7.5% ([facility])- Primary Diabetes mellitus screening Screening for diabetes mellitus documented in this encounter Advance Directives Patient has advance care planning documents on file. For more information, please contact: [place] [phone]
--- OUTSIDE RECORDS SUMMARY | 2023-06-18 03:39 | External Medical Summary | Summary of Care ---
Author Name Unknown Organization [place] [address] Care Team Providers Care Autocad Technician Name Role Phone Marcela Pinto MD Primary Care Provider [phone] Encounter Details Date Type Department Care Team Description 01/13/2019 Orders Only General Internal Medicine [facility] [address] [place], [place] [id number] Marcela Pinto MD [address] [place], [place] [id number] Allergies Active Allergy Reactions Severity Noted Date Comments Valsartan 07/10/2010 Enalapril 05/21/2006 Escitalopram Oxalate Nausea/vomiting 10/11/2009 Nauseated Iodinated Diagnostic Agents Nausea/vomiting 05/2010 IV Contrast Lisinopril 05/21/2006 Metoprolol Tartrate 11/18/2006 Made pulse low [place] Oil-Black Currant-Vit E 07/10/2010 Verapamil 03/21/2004 Bupropion Hcl 10/30/2009 Makes pt sick in the stomach documented as of this encounter (statuses as of 01/13/2019) Medications Medication Sig Dispensed Refills Start Date [...] mouth daily. 90 Tab 0 10/07/2018 Active Nebulizers (NEBULIZER COMPRESSOR) [facility] Inhale via [...] Active DilTIAZem HCl ER Beads 360 MG VC15Pzhwnkikiei:HTN, goal below 130/80 TAKE 1 CAPSULE EVERY [...] before breakfast. 90 Tab 3 01/05/2019 Active documented as of this encounter (statuses as of 01/13/2019) Active Problems Problem Noted Date Body mass [...] as of this encounter (statuses as of 01/13/2019) Resolved Problems Problem Noted Date Resolved Date [...] Hypoxemia 10/08/2011 10/30/2015 Genetic Sleep Disorder Research Other*[id number] 07/25/2011 05/15/2016 Diverticulitis of colon 07/25/2011 01/06/20 [...] as of this encounter (statuses as of 01/13/2019) Immunizations Name Dates Previously Given Next Due [...] [address] [place] [address] [phone] 03/11/2019 Office Visit Podiatry Chantel Moore DPM [address] [place] [id number] 03/31/2019 Office Visit Gastroenterology Zulay Eagle, 132 [facility] [place] [address] [phone] 04/09/2019 Office Visit Internal Medicine Marcela Pinto MD [address] [place] [address] [phone] 06/01/2019 Imaging Radiology 06/28/2019 Nurse Only Ancillary eHather, Nurse Annual [facility] [address] [place] [address] [phone] Health Maintenance Due Date Last Done Comments [...] Priority Date/Time Associated Diagnosis Comments CHEMISTRY-OUTSIDE Routine 01/12/2019 TSH Routine 01/12/2019 documented in this encounter Results * TSH (01/12/2019) TSH - OUTSIDE LAB 1.320 0.360 - 3.740 MCIU/ML O UTSIDE LAB (SEE SCANNED REPORT) Narrative Performed At Performing Organization Address City/State/Zipcod e Phone Number OUTSIDE LAB (SEE SCANNED REPORT) * CHEMISTRY-OUTSIDE (01/12/2019) CREATININE-OUTSIDE LAB 0.90 0.55 - 1.02 MG/DL OUTSIDE LAB (SEE SCANNED REPORT) GFR ESTIMATED-OUTSIDE LAB >60 >=60 ML/MIN OU TSIDE LAB (SEE SCANNED REPORT) POTASSIUM-OUTSIDE LAB 4.1 3.5 - 5.1 MMOL/L OU TSIDE LAB (SEE SCANNED REPORT) GLUCOSE-OUTSIDE LAB 147(A) 70 - 110 MG/DL OUTSID E LAB (SEE SCANNED REPORT) HOURS FASTING OUTSIDE LAB (S EE SCANNED REPORT) TRIGLYCERIDES-OUTSIDE LAB 127 30 - 200 MG/DL OUTSIDE LAB (SEE SCANNED REPORT) CHOLESTEROL-OUTSIDE LAB 170 <=200 MG/DL OUTS [facility] (SEE SCANNED REPORT) HDL-OUTSIDE LAB 56 40 - 59 MG/DL OUTSIDE LAB (SEE SCANNED REPORT) CHOL/HDL RATIO-OUTSIDE LAB 3.0(L) 4.0 - 7.0 O UTSIDE LAB (SEE SCANNED REPORT) LDL (CALCULATED)-OUTSIDE LAB 88.60 <=100 MG/DL OUTSIDE LAB (SEE SCANNED REPORT) LDL (DIRECT MEASURE)-OUTSIDE LAB 99 <=100 MG/DL OUTSIDE LAB (SEE SCANNED REPORT) HEMOGLOBIN, T5G-MLCOXYV LAB 7.0(A) 4.2 - 6.3 % OUTSIDE LAB (SEE SCANNED REPORT) PHOSPHORUS-OUTSIDE LAB OUTSI DE LAB (SEE SCANNED REPORT) PTH-OUTSIDE LAB OUTSIDE LAB (SEE SCANNED REPORT) MICROALBUMIN RATIO-OUTSIDE LAB OUTSIDE LAB (SEE SCANNED REPORT) PROTEIN, UA-OUTSIDE LAB OUTS [facility] (SEE SCANNED REPORT) HEMOGLOBIN-OUTSIDE LAB 11.4(A) 12.0 - 16.0 GM/DL OUTSIDE LAB (SEE SCANNED REPORT) CHEMISTRY COMMENT-OUTSIDE LAB Comment:SEE SCAN: CBC, BMP, LIPID PANEL, HGB A1C, LIVER PANEL, MAG, T4 FREE, TSH OUTSIDE LAB (SEE SCANNED REPORT) Narrative Performed At Performing Organization Address City/State/Zipcod e Phone Number OUTSIDE LAB (SEE SCANNED REPORT) documented in this encounter Advance Directives Patient has advance care planning documents on file. For more information, please contact: [place] [phone]
--- OUTSIDE RECORDS SUMMARY | 2023-06-18 03:39 | External Medical Summary | Summary of Care ---
Author Name Unknown Organization [place] [address] Care Team Providers Care Career Development Counselor Name Role Phone Marcela Pinto MD Primary Care Provider [phone] Reason for Visit * Reason Comments Medical Records Request Encounter Details Date Type Department Care Team Description 12/21/2018 Telephone Gastroenterology, [facility] [address] [facility] [place] [address] Courtney Sprague CRNP [address] [place] [address] Medical Records Request Allergies Active Allergy Reactions Severity Noted Date Comments Valsartan 07/10/2010 Enalapril 05/21/2006 Escitalopram Oxalate Nausea/vomiting 10/11/2009 Nauseated Iodinated Diagnostic Agents Nausea/vomiting 05/2010 IV Contrast Lisinopril 05/21/2006 Metoprolol Tartrate 11/18/2006 Made pulse low [place] Oil-Black Currant-Vit E 07/10/2010 Verapamil 03/21/2004 Bupropion [...] Active DilTIAZem HCl ER Beads 360 MG HH29Qfndirjusuv:HTN , goal below 130/80 TAKE 1 CAPSULE [...] Hypoxemia 10/08/2011 10/30/2015 Genetic Sleep Disorder Research Other*[id number] 07/25/2011 05/15/2016 Obesity, morbid (more than 1 [...] 11:39 AM EDT Spoke to Stephani at [facility] med records, will fax over records. * [...] [facility] [address] [facility] [address] [phone] 03/11/2019 Office Visit Podiatry Chantel Moore, LEONARD [address] [place] [address] 03/31/2019 Office Visit Gastroenterology Zulay Eagle, DO [address] [place] [address] [phone] 06/01/2019 Imaging Radiology Health Maintenance Due Date [...] For more information, please contact: [place] [phone]
--- OUTSIDE RECORDS SUMMARY | 2023-06-18 03:39 | External Medical Summary | Summary of Care ---
Author Name Unknown Organization [place] [address] Care Team Providers Care Mortgage Field Inspector Name Role Phone Marcela Pinto MD Primary Care Provider [phone] Encounter Details Date Type Department Care Team Description 12/25/2018 Result Scan Unspecified Department <No scans attached> Allergies Active Allergy Reactions Severity Noted Date Comments Valsartan 07/10/2010 Enalapril 05/21/2006 Escitalopram Oxalate Nausea/vomiting 10/11/2009 Nauseated Iodinated Diagnostic Agents Nausea/vomiting 05/2010 IV Contrast Lisinopril 05/21/2006 Metoprolol Tartrate 11/18/2006 Made pulse low [place] Oil-Black Currant-Vit E 07/10/2010 Verapamil 03/21/2004 Bupropion [...] Active DilTIAZem HCl ER Beads 360 MG AB04Lukgnjylvcn:HTN, goal below 130/80 TAKE 1 CAPSULE EVERY [...] Hypoxemia 10/08/2011 10/30/2015 Genetic Sleep Disorder Research Other*[id number] 07/25/2011 05/15/2016 Obesity, morbid (more than 1 [...] [address] [place] [id number] 02/04/2019 Office Visit Internal Medicine Marcela Pinto MD [address] [place] [address] [phone] 03/11/2019 Office Visit Podiatry Chantel Moore DPM [address] [place] [address] 03/31/2019 Office [facility]ulay Eagle[facility] [address] [phone] 06/01/2019 Imaging Radiology Health Maintenance Due Date [...] Date/Time Associated Diagnosis Comments OUTSIDE LAB RESULTS 12/25/2018 documented in this encounter Results * OUTSIDE LAB RESULTS (12/25/2018) Narrative Performed At documented in this encounter Advance Directives Patient has advance care planning documents on file. For more information, please contact: [place] [phone]
--- OUTSIDE RECORDS SUMMARY | 2023-06-18 03:39 | External Medical Summary | Summary of Care ---
Author Name Unknown Organization [place] [address] Care Team Providers Care Deputy Court Clerk Name Role Phone Marcela Pinto MD Primary Care Provider [phone] Encounter Details Date Type Department Care Team Description 01/07/2019 Documentation General Internal Medicine [facility] [address] [place], [place] [id number] Marcela Pinto MD [address] [facility] [place] [address] [phone] Allergies Active Allergy Reactions Severity Noted Date Comments Valsartan 07/10/2010 Enalapril 05/21/2006 Escitalopram Oxalate Nausea/vomiting 10/11/2009 Nauseated Iodinated Diagnostic Agents Nausea/vomiting 05/2010 IV Contrast Lisinopril 05/21/2006 Metoprolol Tartrate 11/18/2006 Made pulse low [place] Oil-Black Currant-Vit E 07/10/2010 Verapamil 03/21/2004 Bupropion Hcl 10/30/2009 Makes pt sick in the stomach documented as of this encounter (statuses as of 01/07/2019) Medications Medication Sig Dispensed Refills Start Date [...] Active DilTIAZem HCl ER Beads 360 MG WT97Jqmqougnjlk:HTN, goal below 130/80 TAKE 1 CAPSULE EVERY [...] as of this encounter (statuses as of 01/07/2019) Active Problems Problem Noted Date Body mass [...] as of this encounter (statuses as of 01/07/2019) Resolved Problems Problem Noted Date Resolved Date [...] Hypoxemia 10/08/2011 10/30/2015 Genetic Sleep Disorder Research Other*[id number] 07/25/2011 05/15/2016 Diverticulitis of colon 07/25/2011 01/06/20 [...] as of this encounter (statuses as of 01/07/2019) Immunizations Name Dates Previously Given Next Due [...] [address] [place] [id number] 03/11/2019 Office Visit Podiatry Chantel Moore DPM [address] [place] [id number] 03/31/2019 Office Visit Gastroenterology [facility]ulay Eagle DO [address] [facility] [address] [phone] 04/09/2019 Office Visit Internal Medicine Marcela Pinto MD 200 [place] [address] [phone] 06/01/2019 Imaging Radiology Health Maintenance Due Date Last Done Comments DIABETES-EYE EXAM 08/04/2018 08/04/2017, , 09/23/2011, Additional history exists DIABETES-HGBA1C EVERY 6 MONTHS [...] Associated Diagnosis Comments DIABETIC EYE EXAM Routine 09/14/2018 documented in this encounter Results * DIABETIC EYE EXAM (09/14/2018) Narrative Performed At Performing Organization Address City/State/Zipcod e Phone Number OUTSIDE LAB (SEE SCANNED REPORT) documented in this encounter Advance Directives Patient has advance care planning documents on file. For more information, please contact: [place] [phone]
--- OUTSIDE RECORDS SUMMARY | 2023-06-18 03:40 | External Medical Summary | Summary of Care ---
Author Name Unknown Organization [place] [address] Care Team Providers Care Ticker Maintainer Name Role Phone Marcela Pinto MD Primary Care Provider [phone] Reason for Visit * Reason Comments Test Results CT/ABD Encounter Details Date Type Department Care Team Description 12/18/2018 Telephone Gastroenterology, [facility] [address] [facility] [place] [address] Leti Sprague CRNP 132 [place] [address] Test Results (CT/ABD) Allergies Active Allergy Reactions Severity Noted Date Comments Valsartan 07/10/2010 Enalapril 05/21/2006 Escitalopram Oxalate Nausea/vomiting 10/11/2009 Nauseated Iodinated Diagnostic Agents Nausea/vomiting 05/2010 IV Contrast Lisinopril 05/21/2006 Metoprolol Tartrate 11/18/2006 Made pulse low [place] Oil-Black Currant-Vit E 07/10/2010 Verapamil 03/21/2004 Bupropion Hcl 10/30/2009 Makes pt sick in the stomach documented as of this encounter (statuses as of 12/18/2018) Medications Medication Sig Dispensed Refills Start Date [...] mouth daily. 90 Tab 0 10/07/2018 Active HYDROcodone-acetamin ophen 5-325 mg per tab 5-325 MG per tabletIndications:Ge neralized osteoarthritis Take 1 Tab by mouth every 6 hours as needed for Pain, Mild. 120 Tab 0 11/04/2018 Active Meloxicam (MOBIC) 15 MG TabletIndications:Ne ck [...] Active DilTIAZem HCl ER Beads 360 MG KJ45Tusswswhvxc:HTN, goal below 130/80 TAKE 1 CAPSULE EVERY DAY 90 Cap 1 11/30/2018 Active predniSONE (DELTASONE) 50 MG TabletIndications:LL Q abdominal pain,Allergy to iodinated contrast Take 1 tablet by mouth 13 hr, 7 hr, and [address] scan. 3 Tab 0 12/16/2018 Active amoxicillin-clavulan ate (AUGMENTIN) 875-125 MG per Tablet Take 1 Tab by mouth every 12 hours for 7 days. 14 Tab 0 12/18/2018 9 Active documented as of this encounter (statuses as of 12/18/2018) Active Problems Problem Noted Date Body mass [...] as of this encounter (statuses as of 12/18/2018) Resolved Problems Problem Noted Date Resolved Date [...] Hypoxemia 10/08/2011 10/30/2015 Genetic Sleep Disorder Research Other*[id number] 07/25/2011 05/15/2016 Obesity, morbid (more than 1 [...] as of this encounter (statuses as of 12/18/2018) Immunizations Name Dates Previously Given Next Due [...] encounter Miscellaneous Notes * Telephone Encounter - Randa Oswald RN - 12/18/2018 3:52 PM EST Left message on machine for patient to return call. * Telephone Encounter - Leti Sprague CRNP - 12/18/2018 3:[address] reviewed Suspected acute mild diverticulitis No mention of abscess No mention of fluid collection No mention of perforation No mention of fistula Drug interaction w/ cipro and current OP megs Can treat with BID Augmentin x 7 days If pain worsens will need ED If fevers will need ED AMS * Telephone Encounter - Tasha Duong LPN - 12/18/2018 3:33 PM EST Leti, Fax received and given to leti * Telephone Encounter - Dodie Carson LPN - 12/18/2018 3:28 PM EST [facility] calling with abnormal results of CT/Abd and pelvis- colonic diverticulosis with suspected mild acute on chronic diverticulitis at the large proximal sigmoid diverticulum. Results were faxed already. * Telephone Encounter - Chanda Kelley OSA - 12/18/2018 3:27 PM EST Reason for patient's call: abnormal results Caller was transferred to [facility] at the dedicated phone nurse line. documented in this encounter Plan of Treatment Upcoming Encounters Date Type Specialty Care Team Description 01/18/2019 Nutrition Services Gastroenterology Nita Enriquez, AKIKO [address] [place] [address] [phone] 02/04/2019 Office Visit Internal Medicine Marcela Pinto MD 200 [place] [address] [phone] 03/11/2019 Office Visit Podiatry Chantel Moore DPM [address] [place] [address] [phone] 03/31/2019 Office Visit Gastroenterology Zulay Eagle, [address] [facility] [place] [address] [phone] 06/01/2019 Imaging Radiology Health Maintenance Due Date [...] For more information, please contact: [place] [phone]
--- OUTSIDE RECORDS SUMMARY | 2023-06-18 03:40 | External Medical Summary | Summary of Care ---
Author Name Unknown Organization [place] [address] Care Team Providers Care Boat Outfitter Name Role Phone Marcela Pinto MD Primary Care Provider [phone] Encounter Details Date Type Department Care Team Description 12/21/2018 Telephone Gastroenterology, [facility] [address] [place] [address] Courtney Sprague CRNP [address] [place] [address] Allergies Active Allergy Reactions Severity Noted Date Comments Valsartan 07/10/2010 Enalapril 05/21/2006 Escitalopram Oxalate Nausea/vomiting 10/11/2009 Nauseated Iodinated Diagnostic Agents Nausea/vomiting 05/2010 IV Contrast Lisinopril 05/21/2006 Metoprolol Tartrate 11/18/2006 Made pulse low [place] Oil-Black Currant-Vit E 07/10/2010 Verapamil 03/21/2004 Bupropion Hcl 10/30/2009 Makes pt sick in the stomach documented as of this encounter (statuses as of 12/25/2018) Medications Medication Sig Dispensed Refills Start Date [...] Tab 11 9 Active Nebulizers (NEBULIZER COMPRESSOR) [facility] Inhale via nebulizer. [...] Active DilTIAZem HCl ER Beads 360 MG KS84Dwirbtjxqne:HTN , goal below 130/80 TAKE 1 CAPSULE EVERY DAY 90 Cap 1 9 Active predniSONE (DELTASONE) 50 MG TabletIndications:L LQ abdominal pain,Allergy to iodinated contrast Take 1 tablet by mouth 13 hr, 7 hr, and [address] scan. 3 Tab 0 9 Active amoxicillin-clavula laura (AUGMENTIN) 875-125 MG per Tablet Take 1 Tab by mouth every 12 hours for 7 days. 14 Tab 0 9 12/26/19 19 Active HYDROcodone-acetami nophen 5-325 mg per tab 5-325 MG per tabletIndications:G eneralized osteoarthritis Take 1 Tab by mouth every 6 hours as needed for Pain, Mild. 120 Tab 0 9 12/23/19 19 Discontinued documented as of this encounter (statuses as of 12/25/2018) Active Problems Problem Noted Date Body mass [...] as of this encounter (statuses as of 12/25/2018) Resolved Problems Problem Noted Date Resolved Date [...] Hypoxemia 10/08/2011 10/30/2015 Genetic Sleep Disorder Research Other*[id number] 07/25/2011 05/15/2016 Obesity, morbid (more than 1 [...] as of this encounter (statuses as of 12/25/2018) Immunizations Name Dates Previously Given Next Due [...] [address] [place] [address] [phone] 02/04/2019 Office Visit Internal Medicine [facility] [address] [phone] 03/11/2019 Office Visit Podiatry Chantel Moore DPM [address] [place] [id number] 03/31/2019 Office Visit Gastroenterology Zulay Eagle DO [address] [facility] [place] [address] [phone] 06/01/2019 Imaging Radiology Health Maintenance Due Date [...] For more information, please contact: [place] [phone]
--- OUTSIDE RECORDS SUMMARY | 2023-06-18 03:40 | External Medical Summary | Summary of Care ---
Author Name Unknown Organization [place] [address] Care Team Providers Care Medical Biller Coder Name Role Phone Marcela Pinto MD Primary Care Provider [phone] Reason for Visit * Reason Comments Test Results CT/ABD Encounter Details Date Type Department Care Team Description 12/18/2018 Telephone Gastroenterology, [facility] 132 [facility] [place] [address] Leti Sprague CRNP 132 [place] [address] Test Results (CT/ABD) Allergies Active Allergy Reactions Severity Noted Date Comments Valsartan 07/10/2010 Enalapril 05/21/2006 Escitalopram Oxalate Nausea/vomiting 10/11/2009 Nauseated Iodinated Diagnostic Agents Nausea/vomiting 05/2010 IV Contrast Lisinopril 05/21/2006 Metoprolol Tartrate 11/18/2006 Made pulse low [place] Oil-Black Currant-Vit E 07/10/2010 Verapamil 03/21/2004 Bupropion [...] Active DilTIAZem HCl ER Beads 360 MG NM86Ytcuskojumr:HTN, goal below 130/80 TAKE 1 CAPSULE EVERY [...] Hypoxemia 10/08/2011 10/30/2015 Genetic Sleep Disorder Research Other*[id number] 07/25/2011 05/15/2016 Obesity, morbid (more than 1 [...] encounter Miscellaneous Notes * Telephone Encounter - Leti Sprague CRNP - 12/18/2018 4:20 PM EST I tried to call pt again, no answer I tried emergency contact x 2 number, no answer Did not leave message on either phone AMS * Telephone Encounter - Randa Oswald RN [...] Carson LPN - 12/18/2018 3:[address] [facility] calling with abnormal results of CT/Abd and pelvis- colonic diverticulosis with suspected mild acute on chronic diverticulitis at the large proximal sigmoid diverticulum. Results were faxed already. * Telephone Encounter - Chanda Kelley OSA - 12/18/2018 3:27 PM EST Reason for patient's call: abnormal results Caller was transferred to [facility] at the dedicated phone nurse line. documented in this encounter Plan of Treatment Upcoming Encounters Date Type Specialty Care Team Description 01/18/2019 Nutrition Services Gastroenterology Nita Enriquez RDN [address] [place] [address] [place] [address] [phone] 02/04/2019 Office Visit Internal Medicine [facility] [address] [phone] 03/11/2019 Office Visit Podiatry Chantel Moore DPM [address] [place] [address] [place] [address] [phone] 03/31/2019 Office Visit Gastroenterology Zulay Eagle DO 132 [facility] [place] [address] [phone] 06/01/2019 Imaging Radiology Health Maintenance Due Date [...] For more information, please contact: [place] [phone]
--- OUTSIDE RECORDS SUMMARY | 2023-06-18 03:40 | External Medical Summary | Summary of Care ---
Author Name Unknown Organization [place] [address] Care Team Providers Care Grinding Wheel Facer Name Role Phone Marcela Pinto MD Primary Care Provider [phone] Reason for Visit * Reason Comments Test Results CT/ABD Encounter Details Date Type Department Care Team Description 12/18/2018 Telephone Gastroenterology, [facility] 132 [facility] [place] [address] Leti Sprague CRNP 132 [place] [address] Test Results (CT/ABD) Allergies Active Allergy Reactions Severity Noted Date Comments Valsartan 07/10/2010 Enalapril 05/21/2006 Escitalopram Oxalate Nausea/vomiting 10/11/2009 Nauseated Iodinated Diagnostic Agents Nausea/vomiting 05/2010 IV Contrast Lisinopril 05/21/2006 Metoprolol Tartrate 11/18/2006 Made pulse low [place] Oil-Black Currant-Vit E 07/10/2010 Verapamil 03/21/2004 Bupropion Hcl 10/30/2009 Makes pt sick in the stomach documented as of this encounter (statuses as of 12/21/2018) Medications Medication Sig Dispensed Refills Start Date [...] Active DilTIAZem HCl ER Beads 360 MG FC75Yjwvfytmijo:HTN, goal below 130/80 TAKE 1 CAPSULE EVERY [...] as of this encounter (statuses as of 12/21/2018) Active Problems Problem Noted Date Body mass [...] as of this encounter (statuses as of 12/21/2018) Resolved Problems Problem Noted Date Resolved Date [...] Hypoxemia 10/08/2011 10/30/2015 Genetic Sleep Disorder Research Other*[id number] 07/25/2011 05/15/2016 Obesity, morbid (more than 1 [...] as of this encounter (statuses as of 12/21/2018) Immunizations Name Dates Previously Given Next Due [...] Telephone Encounter - Leti Sprague CRNP - 12/21/2018 8:26 AM EDT Noted * Telephone Encounter - Kiana Roman OSA - 12/19/2018 9:30 AM EST Patient has been notified of the message. Patient has no further questions. * Telephone Encounter - Leti Sprague CRNP [...] Carson LPN - 12/18/2018 3:28 PM EST [facility] calling with abnormal results of CT/Abd and pelvis- colonic diverticulosis with suspected mild acute on chronic diverticulitis at the large proximal sigmoid diverticulum. Results were faxed already. * Telephone Encounter - Chanda Kelley OSA - 12/18/2018 3:27 PM EST Reason for patient's call: abnormal results Caller was transferred to [facility] at the dedicated phone nurse line. documented in this encounter Plan of Treatment Upcoming Encounters Date Type Specialty Care Team Description 01/18/2019 Nutrition Services Gastroenterology Nita Enriquez RDN [address] [place] [address] [place] [address] 02/04/2019 Office Visit Internal Medicine Marcela Pinto MD 200 [facility], [place] [address] [phone] 03/11/2019 Office Visit Podiatry Chantel Moore DPM [address] [place] [address] [place] [address] [phone] 03/31/2019 Office Visit Gastroenterology Zulay Eagle, DO [address] [place] [address] [phone] 06/01/2019 Imaging Radiology Health Maintenance Due Date [...] For more information, please contact: [place] [phone]
--- OUTSIDE RECORDS SUMMARY | 2023-06-18 03:40 | External Medical Summary | Summary of Care ---
Author Name Unknown Organization [place] [address] Care Team Providers Care Brick Machine Operator Name Role Phone Marcela Pinto MD Primary Care Provider [phone] Encounter Details Date Type Department Care Team Description 12/21/2018 Telephone Gastroenterology, [facility] [address] [facility] [place] [address] Courtney Sprague CRNP [address] [facility] [address] Allergies Active Allergy Reactions Severity Noted [...] Tab 11 9 Active Nebulizers (NEBULIZER COMPRESSOR) [facility] Inhale via nebulizer. Use as directed. Please [...] Active DilTIAZem HCl ER Beads 360 MG WS13Qbfbhswepiy:HTN , goal below 130/80 TAKE 1 CAPSULE [...] Hypoxemia 10/08/2011 10/30/2015 Genetic Sleep Disorder Research Other*[id number] 07/25/2011 05/15/2016 Obesity, morbid (more than 1 [...] after eating and with lots of water. Courtney- SHILO. * Telephone Encounter - Courtney Sprague CRNP [...] [address] [place] [address] [place] [id number] 02/04/2019 Office Visit Internal Medicine Marcela Pinto MD 200 [place] [address] [phone] 03/11/2019 Office Visit Podiatry Chantel Moore DPM [address] [place] [address] [place] [address] [phone] 03/31/2019 Office Visit Gastroenterology Zulay Eagle DO [address] [place] [address] [phone] 06/01/2019 Imaging Radiology Health Maintenance Due Date [...] For more information, please contact: [place] [phone]
--- OUTSIDE RECORDS SUMMARY | 2023-06-18 03:40 | External Medical Summary | Summary of Care ---
Author Name Unknown Organization [place] [address] Care Team Providers Care Cleaning Technician Name Role Phone Marcela Pinto MD Primary Care Provider [phone] Encounter Details Date Type Department Care Team Description 12/21/2018 Orders Only General Internal Medicine [facility] [address] [facility] [address] [address] [place], [place] [id number] Marcela Pinto MD [address] [facility] [address] [place], [place] [id number] Allergies Active Allergy Reactions Severity Noted Date Comments Valsartan 07/10/2010 Enalapril 05/21/2006 Escitalopram Oxalate Nausea/vomiting 10/11/2009 Nauseated Iodinated Diagnostic Agents Nausea/vomiting 05/2010 IV Contrast Lisinopril 05/21/2006 Metoprolol Tartrate 11/18/2006 Made pulse low [place] Oil-Black Currant-Vit E 07/10/2010 Verapamil 03/21/2004 Bupropion [...] Active DilTIAZem HCl ER Beads 360 MG [id number]:HTN, goal below 130/80 TAKE 1 CAPSULE EVERY [...] Hypoxemia 10/08/2011 10/30/2015 Genetic Sleep Disorder Research Other*[id number] 07/25/2011 05/15/2016 Obesity, morbid (more than 1 [...] Internal Medicine Marcela Pinto MD 200 [facility] [address] [phone] 03/11/2019 Office Visit Podiatry Chantel Moore DPM [address] [place] [address] [place] [address] 03/31/2019 Office Visit Gastroenterology Zulay Eagle, 132 [facility] [place] [address] [phone] 06/01/2019 Imaging Radiology Health Maintenance Due Date [...] Priority Date/Time Associated Diagnosis Comments CHEMISTRY-OUTSIDE Routine 12/17/2018 documented in this encounter Results * CHEMISTRY-OUTSIDE (12/17/2018) CREATININE-OUTSIDE LAB 0.94 0.55 - 1.02 MG/DL OUTSIDE LAB (SEE SCANNED REPORT) GFR ESTIMATED-OUTSIDE LAB >60 ML/MIN 1.73 M2 OUTSIDE LAB (SEE SCANNED REPORT) POTASSIUM-OUTSIDE LAB [...] LAB OUTSIDE LAB (SEE SCANNED REPORT) HEMOGLOBIN, [id number] LAB OUTSIDE LAB (SEE SCANNED REPORT) PHOSPHORUS-OUTSIDE LAB OUTSI DE LAB (SEE SCANNED REPORT) PTH-OUTSIDE LAB OUTSIDE LAB (SEE SCANNED REPORT) MICROALBUMIN RATIO-OUTSIDE LAB OUTSIDE LAB (SEE SCANNED REPORT) PROTEIN, UA-OUTSIDE LAB OUTS [place] [facility] (SEE SCANNED REPORT) HEMOGLOBIN-OUTSIDE LAB OUTSI DE LAB (SEE SCANNED REPORT) CHEMISTRY COMMENT-OUTSIDE LAB Comment:BUN CREA- SEE SCAN OUTSIDE LAB (SEE SCANNED REPORT) Narrative Performed At Performing Organization Address City/State/Zipcod e Phone Number OUTSIDE LAB (SEE SCANNED REPORT) documented in this encounter Advance Directives Patient has advance care planning documents on file. For more information, please contact: [place] [phone]
--- OUTSIDE RECORDS SUMMARY | 2023-06-18 03:40 | External Medical Summary | Summary of Care ---
Author Name Unknown Organization [place] [address] Care Team Providers Care Supervisor Building Maintenance Name Role Phone Marcela Pinto MD Primary Care Provider [phone] Encounter Details Date Type Department Care Team Description 12/21/2018 Telephone Gastroenterology, [facility] [address] [facility] [place] [address] Courtney Sprague CRNP [address] [facility] [place] [address] Allergies Active Allergy Reactions Severity Noted [...] Tab 11 9 Active Nebulizers (NEBULIZER COMPRESSOR) [facility] Inhale via nebulizer. Use as directed. Please [...] Active DilTIAZem HCl ER Beads 360 MG OM37Qdjxsnpzlnh:HTN , goal below 130/80 TAKE 1 CAPSULE [...] Hypoxemia 10/08/2011 10/30/2015 Genetic Sleep Disorder Research Other*[id number] 07/25/2011 05/15/2016 Obesity, morbid (more than 1 [...] encounter Miscellaneous Notes * Telephone Encounter - Tasha Duong LPN [...] [address] [place] [address] [place] [id number] 02/04/2019 Office Visit Internal Medicine Marcela Pinto MD 200 [place] [address] [phone] 03/11/2019 Office Visit Podiatry Chantel Moore, LEONARD [address] [place] [address] [place] [id number] 03/31/2019 Office Visit Gastroenterology Zulay Eagle DO [facility] [address] [phone] 06/01/2019 Imaging Radiology Health Maintenance Due Date [...] For more information, please contact: [place] [phone]
--- OUTSIDE RECORDS SUMMARY | 2023-06-18 03:40 | External Medical Summary | Summary of Care ---
Author Name Unknown Organization [place] [address] Care Team Providers Care Counselling Psychologist Name Role Phone Marcela Pinto MD Primary Care Provider [phone] Reason for Visit * Reason Comments Test Results CT/ABD Encounter Details Date Type Department Care Team Description 12/18/2018 Telephone Gastroenterology, [facility] 132 [facility] [place] [address] Leti Sprague CRNP 132 [place] [address] Test Results (CT/ABD) Allergies Active Allergy Reactions Severity Noted Date Comments Valsartan 07/10/2010 Enalapril 05/21/2006 Escitalopram Oxalate Nausea/vomiting 10/11/2009 Nauseated Iodinated Diagnostic Agents Nausea/vomiting 05/2010 IV Contrast Lisinopril 05/21/2006 Metoprolol Tartrate 11/18/2006 Made pulse low [place] Oil-Black Currant-Vit E 07/10/2010 Verapamil 03/21/2004 Bupropion Hcl 10/30/2009 Makes pt sick in the stomach documented as of this encounter (statuses as of 12/19/2018) Medications Medication Sig Dispensed Refills Start Date [...] Active DilTIAZem HCl ER Beads 360 MG [id number]:HTN, goal below 130/80 TAKE 1 CAPSULE EVERY [...] as of this encounter (statuses as of 12/19/2018) Active Problems Problem Noted Date Body mass [...] as of this encounter (statuses as of 12/19/2018) Resolved Problems Problem Noted Date Resolved Date [...] Hypoxemia 10/08/2011 10/30/2015 Genetic Sleep Disorder Research Other*[id number] 07/25/2011 05/15/2016 Obesity, morbid (more than 1 [...] as of this encounter (statuses as of 12/19/2018) Immunizations Name Dates Previously Given Next Due [...] encounter Miscellaneous Notes * Telephone Encounter - Kiana Roman OSA [...] Carson LPN - 12/18/2018 3:28 PM EST [facility] calling with abnormal results of CT/Abd and pelvis- colonic diverticulosis with suspected mild acute on chronic diverticulitis at the large proximal sigmoid diverticulum. Results were faxed already. * Telephone Encounter - Chanda Kelley OSA - 12/18/2018 3:27 PM EST Reason for patient's call: abnormal results Caller was transferred to [facility] at the dedicated phone nurse line. documented in this encounter Plan of Treatment Upcoming Encounters Date Type Specialty Care Team Description 01/18/2019 Nutrition Services Gastroenterology Nita Enriquez RDN [address] [place] [address] [place] [address] [phone] 02/04/2019 Office Visit Internal Medicine Marcela Pinto MD 200 [place] [address] [phone] 03/11/2019 Office Visit Podiatry Chantel Moore DPM [address] [place] [address] [place] [id number] 03/31/2019 Office Visit Gastroenterology Zulay Eagle, DO [address] [place] [address] [phone] 06/01/2019 Imaging Radiology Health Maintenance Due Date [...] For more information, please contact: [place] [phone]
--- OUTSIDE RECORDS SUMMARY | 2023-06-18 03:40 | External Medical Summary | Summary of Care ---
Author Name Unknown Organization [place] [address] Care Team Providers Care Director Of Customer Acquisition Name Role Phone Marcela Pinto MD Primary Care Provider [phone] Encounter Details Date Type Department Care Team Description 12/21/2018 Telephone Gastroenterology, [facility] [address] [facility] [place] [address] Courtney Sprague CRNP [address] [place] [address] Allergies Active Allergy Reactions Severity Noted Date Comments Valsartan 07/10/2010 Enalapril 05/21/2006 Escitalopram Oxalate Nausea/vomiting 10/11/2009 Nauseated Iodinated Diagnostic Agents Nausea/vomiting 05/2010 IV Contrast Lisinopril 05/21/2006 Metoprolol Tartrate 11/18/2006 Made pulse low [place] Oil-Black Currant-Vit E 07/10/2010 Verapamil 03/21/2004 Bupropion [...] Tab 11 9 Active Nebulizers (NEBULIZER COMPRESSOR) [facility] Inhale via nebulizer. Use as directed. Please [...] Active DilTIAZem HCl ER Beads 360 MG TY49Piirmawhupw:HTN , goal below 130/80 TAKE 1 CAPSULE [...] Hypoxemia 10/08/2011 10/30/2015 Genetic Sleep Disorder Research Other*[id number] 07/25/2011 05/15/2016 Obesity, morbid (more than 1 [...] Description 01/18/2019 Nutrition Services Gastroenterology Nita Enriquez, IWONAN [address] [place] [place] [address] 02/04/2019 Office Visit Internal Medicine Marcela Pinto MD 200 [place] [address] [phone] 03/11/2019 Office Visit Podiatry Chantel Moore DPM [address] [place] [place] [id number] 03/31/2019 Office Visit Gastroenterology Zulay Eagle DO 132 [facility] [place] [address] [phone] 06/01/2019 Imaging Radiology Health Maintenance Due Date [...] For more information, please contact: [place] [phone]
--- OUTSIDE RECORDS SUMMARY | 2023-06-18 03:40 | External Medical Summary | Summary of Care ---
Author Name Unknown Organization [place] [address] Care Team Providers Care Bobbin Loose End Finder Name Role Phone Marcela Pinto MD Primary Care Provider [phone] Reason for Visit * Reason Comments Test Results CT/ABD Encounter Details Date Type Department Care Team Description 12/18/2018 Telephone Gastroenterology, [facility] 132 [facility] [place] [address] Leti Sprague CRNP 132 [place] [address] Test Results (CT/ABD) Allergies Active Allergy Reactions Severity Noted Date Comments Valsartan 07/10/2010 Enalapril 05/21/2006 Escitalopram Oxalate Nausea/vomiting 10/11/2009 Nauseated Iodinated Diagnostic Agents Nausea/vomiting 05/2010 IV Contrast Lisinopril 05/21/2006 Metoprolol Tartrate 11/18/2006 Made pulse low [place] Oil-Black Currant-Vit E 07/10/2010 Verapamil 03/21/2004 Bupropion [...] Active DilTIAZem HCl ER Beads 360 MG EZ86Jxumeeyzqiz:HTN, goal below 130/80 TAKE 1 CAPSULE EVERY [...] Hypoxemia 10/08/2011 10/30/2015 Genetic Sleep Disorder Research Other*[id number] 07/25/2011 05/15/2016 Obesity, morbid (more than 1 [...] Carson LPN - 12/18/2018 3:28 PM EST [facility] calling with abnormal results of CT/Abd and pelvis- colonic diverticulosis with suspected mild acute on chronic diverticulitis at the large proximal sigmoid diverticulum. Results were faxed already. * Telephone Encounter - Chanda Kelley OSA - 12/18/2018 3:27 PM EST Reason for patient's call: abnormal results Caller was transferred to [facility] at the dedicated phone nurse line. documented in this encounter Plan of Treatment Upcoming Encounters Date Type Specialty Care Team Description 01/18/2019 Nutrition Services Gastroenterology Nita Enirquez RDN [address] [place] [address] [place] [address] [phone] 02/04/2019 Office Visit Internal Medicine Marcela Pinto MD 200 [place] [address] [phone] 03/11/2019 Office Visit Podiatry Chantel Moore DPM [address] [place] [address] [place] [id number] 03/31/2019 Office Visit Gastroenterology Zulay Eagle, DO [address] [place] [address] [phone] 06/01/2019 Imaging Radiology Health Maintenance Due Date [...] For more information, please contact: [place] [phone]
--- OUTSIDE RECORDS SUMMARY | 2023-06-18 03:40 | External Medical Summary | Summary of Care ---
Author Name Unknown Organization [place] [address] Care Team Providers Care Styrene Dehydration Reactor Operator Name Role Phone Marcela Pinto MD Primary Care Provider [phone] Encounter Details Date Type Department Care Team Description 12/21/2018 Telephone Gastroenterology, [facility] [address] [facility] [place] [address] Courtney Sprague CRNP [address] [facility] [address] Allergies Active Allergy Reactions Severity Noted Date Comments Valsartan 07/10/2010 Enalapril 05/21/2006 Escitalopram Oxalate Nausea/vomiting 10/11/2009 Nauseated Iodinated Diagnostic Agents Nausea/vomiting 05/2010 IV Contrast Lisinopril 05/21/2006 Metoprolol Tartrate 11/18/2006 Made pulse low [place] Oil-Black Currant-Vit E 07/10/2010 Verapamil 03/21/2004 Bupropion [...] Active DilTIAZem HCl ER Beads 360 MG PB35Ipafmuatpcs:HTN , goal below 130/80 TAKE 1 CAPSULE [...] Hypoxemia 10/08/2011 10/30/2015 Genetic Sleep Disorder Research Other*[id number] 07/25/2011 05/15/2016 Obesity, morbid (more than 1 [...] [address] [place] [address] [place] [id number] 02/04/2019 Office Visit Internal Medicine Marcela Pinto MD 200 [place] [address] [phone] 03/11/2019 Office Visit Podiatry Chantel Moore, LEONRAD [address] [place] [address] [place] [id number] 03/31/2019 Office Visit Gastroenterology Zulay Eagle DO [facility] [address] [phone] 06/01/2019 Imaging Radiology Health Maintenance Due Date [...] For more information, please contact: [place] [phone]
--- OUTSIDE RECORDS SUMMARY | 2023-06-18 03:40 | External Medical Summary | Summary of Care ---
Author Name Unknown Organization [place] [address] Care Team Providers Care Mortgage Manager Name Role Phone Marcela Pinto MD Primary Care Provider Encounter Details Date Type Department Care Team Description 12/21/2018 Telephone Gastroenterology, [facility] [address] [facility] [place] [address] Courtney Sprague CRNP [address] [place] [address] Allergies Active Allergy Reactions Severity Noted Date Comments Valsartan 07/10/2010 Enalapril 05/21/2006 Escitalopram Oxalate Nausea/vomiting 10/11/2009 Nauseated Iodinated Diagnostic Agents Nausea/vomiting 05/2010 IV Contrast Lisinopril 05/21/2006 Metoprolol Tartrate 11/18/2006 Made pulse low [place] Oil-Black Currant-Vit E 07/10/2010 Verapamil 03/21/2004 Bupropion Hcl 10/30/2009 Makes pt sick in the stomach documented as of this encounter (statuses as of 12/24/2018) Medications Medication Sig Dispensed Refills Start Date [...] Tab 11 9 Active Nebulizers (NEBULIZER COMPRESSOR) [facility] [...] Active DilTIAZem HCl ER Beads 360 MG XL23Dqbsxadrymx:HTN , goal below 130/80 TAKE 1 CAPSULE [...] as of this encounter (statuses as of 12/24/2018) Active Problems Problem Noted Date Body mass [...] as of this encounter (statuses as of 12/24/2018) Resolved Problems Problem Noted Date Resolved Date [...] Hypoxemia 10/08/2011 10/30/2015 Genetic Sleep Disorder Research Other*[id number] 07/25/2011 05/15/2016 Obesity, morbid (more than 1 [...] as of this encounter (statuses as of 12/24/2018) Immunizations Name Dates Previously Given Next Due [...] [address] [place] [place] [id number] 02/04/2019 Office Visit Internal Medicine Marcela Pinto MD [address] [facility] [address] [phone] 03/11/2019 Office Visit Podiatry Chantel Moore DPM [address] [place] [place] [address] 03/31/2019 Office Visit Gastroenterology Zulay Eagle DO [address] [facility] [address] [phone] 06/01/2019 Imaging Radiology Health Maintenance Due Date [...] For more information, please contact: [place] [phone]
--- OUTSIDE RECORDS SUMMARY | 2023-06-18 03:41 | External Medical Summary | Summary of Care ---
Author Name Unknown Organization [place] [address] Care Team Providers Care Rehabilitation Case Coordinator Name Role Phone Marcela Pinto MD Primary Care Provider [phone] Reason for Visit * Reason Comments Follow Up Encounter Details Date Type Department Care Team Description 12/10/2018 Office Visit Podiatry [facility] [address] [facility] [place] [address] Chantel Moore DPM [address] [place] [address] [place] [address] Type 2 diabetes mellitus with hemoglobin A1c goal of less than 7.5% ([facility])*; Onychomycosis Allergies Active Allergy Reactions Severity Noted Date Comments Valsartan 07/10/2010 Enalapril 05/21/2006 Escitalopram Oxalate Nausea/vomiting 10/11/2009 Nauseated Iodinated Diagnostic Agents Nausea/vomiting 05/2010 IV Contrast Lisinopril 05/21/2006 Metoprolol Tartrate 11/18/2006 Made pulse low [place] Oil-Black Currant-Vit E 07/10/2010 Verapamil 03/21/2004 Bupropion Hcl 10/30/2009 Makes pt sick in the stomach documented as of this encounter (statuses as of 12/10/2018) Medications Medication Sig Dispensed Refills Start Date [...] Active DilTIAZem HCl ER Beads 360 MG [id number]:HTN, goal below 130/80 TAKE 1 CAPSULE EVERY DAY 90 Cap 1 11/30/2018 Active documented as of this encounter (statuses as of 12/10/2018) Active Problems Problem Noted Date Body mass [...] as of this encounter (statuses as of 12/10/2018) Resolved Problems Problem Noted Date Resolved Date [...] Hypoxemia 10/08/2011 10/30/2015 Genetic Sleep Disorder Research Other*[id number] 07/25/2011 05/15/2016 Obesity, morbid (more than 1 [...] as of this encounter (statuses as of 12/10/2018) Immunizations Name Dates Previously Given Next Due [...] Progress Notes * Chantel Moore DPM - 12/10/2018 10:16 AM EST Podiatry Established Patient Note [facility] Name: Nina Harrington : 1940 Date: 12/10/2018 CHIEF COMPLAINT: Diabetic Nail Care HISTORY OF [...] COLONOSCOPY, DIAGNOSTIC (RECTUM) 05/29/2016 poor prep, diverticulosis/inpt [facility] COLONOSCOPY, DIAGNOSTIC (RECTUM) 06/05/2017 diverticulosis, repeat 3 yrs/[facility] COLONOSCOPY, DIAGNOSTIC (RECTUM) 02/28/2018 adenomatous polyps, diverticulosis, repeat 3 yrs / [facility] COLONOSCOPY, W/BIOPSY 03/20/12 hyperplastic polyps rpt 3 years. EGD, FLEXIBLE, DIAGNOSTIC 04/29/2014 normal/inpt [facility] EGD, FLEXIBLE, DIAGNOSTIC 05/29/2016 fundic submucosal mass/inpt [facility] EGD, FLEXIBLE,W/ENDOSCOPIC US 11/08/2016 inflammatory changes, stomach lesion, repeat EUS 1.5 yrs/[facility] EGD, FLEXIBLE,W/ENDOSCOPIC US 05/01/2018 stromal cell (smooth muscle) neoplasm, CBD dilation, repeat 2 yrs (needs OV prior)/[facility] INCISIONAL HERNIA REPAIR, LAP, REDUCIBLE 09/29/12 Repair of incarcerated supraumbilical (incisional) hernia with [facility] mesh 09/29/12 LIGATE/CUT OVIDUCT(S) REMOVAL OF TONSILS, AGE 12+ age 11 REMOVE GALLBLADDER 1960 SIGMOIDOSCOPY, DIAGNOSTIC 04/29/2014 stool in rectum/inpt [facility] SMALL BOWEL ENDOSCOPY, REMOVE 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 1 Each 1 HYDROcodone-acetaminophen 5-325 mg per tab 5-325 MG per tablet Take 1 Tab by mouth every 6 hours asneeded for Pain, Mild. 120 Tab 0 zafirlukast (ACCOLATE) 20 MG Tablet Take 1 [...] Contrast Lisinopril Metoprolol Tartrate Made pulse low [place] Oil-Black Currant-Vit E Verapamil Wellbutrin [Bupropion Hcl] [...] palpable, luz. CFT < 3 sec 1-5, ulz. No edema noted, luz. Temperature gradient is [...] documented in this encounter Nursing Notes * Samuel Martinez TECH - 12/10/2018 9:52 AM EST Patient presents today for a follow up on routine nail care. Patient is diabetic and her last bloodsugar was 144 this morning. PAIGE Foster documented in this encounter Plan of Treatment Upcoming Encounters Date Type Specialty Care Team Description 12/16/2018 Office Visit Gastroenterology Courtney Sprague CRNP [address] [facility] [place] [address] 12/21/2018 Nutrition Services Gastroenterology Nita Enriquez RDN [address] [place] [address] [place] [address] 02/04/2019 Office Visit Internal Medicine Marcela Pinto MD [address] [facility] [place] [address] [phone] 03/11/2019 Office Visit Podiatry Chantel Moore DPM [address] [place] [address] [place] [address] [phone] 06/01/2019 Imaging Radiology Health Maintenance Due Date [...] goal of less than 7.5% (HCC)- Primary Onychomycosis Dermatophytosis of nail documented in this encounter Advance Directives Patient has advance care planning documents on file. For more information, please contact: [place] [phone]
--- OUTSIDE RECORDS SUMMARY | 2023-06-18 03:41 | External Medical Summary | Summary of Care ---
Author Name Unknown Organization [place] [address] Care Team Providers Care Printing Bindery Assistant Name Role Phone Alex Pinto MD Primary Care Provider [phone] Reason for Referral * Evaluate & Treat - Unlimited Visits (Within 10 days (routine)) Status Reason Specialty Diagnoses / Procedures Referred By Contact Referred To Contact Pending Review Specialty Services Required Physical Therapy Diagnoses Neck pain Pain in joint of right shoulder Alex Pinto MD [address] [place] [address] Reason for Visit * Reason Comments Pain pt reports neck, rig ht shoulder and wrist pain x one week Encounter Details Date Type Department Care Team Description 11/12/2018 Office Visit General Internal Medicine [facility] [address] [place] [address] Alex Pinto MD [address] [place] [address] [phone] Neck pain*; Pain in joint of right shoulder; Spasm of muscle Allergies Active Allergy Reactions Severity Noted Date Comments Valsartan 07/10/2010 Enalapril 05/21/2006 Escitalopram Oxalate Nausea/vomiting 10/11/2009 Nauseated Iodinated Diagnostic Agents Nausea/vomiting 05/2010 IV Contrast Lisinopril 05/21/2006 Metoprolol Tartrate 11/18/2006 Made pulse low [place] Oil-Black Currant-Vit E 07/10/2010 Verapamil 03/21/2004 Bupropion Hcl 10/30/2009 Makes pt sick in the stomach documented as of this encounter (statuses as of 11/12/2018) Medications Medication Sig Dispensed Refills Start Date [...] DAYS NEEDED FOR CONSTIPATION 0 11/26/2017 Active ondansetron ODT (ZOFRAN) 8 MG TBDPIndications:Naus ea DISSOLVE 1 TABLET ON TONGUE EVERY 8 HOURS NEEDED FOR NAUSEA 60 Tab 5 12/16/2017 Active ferrous sulfate (FEOSOL) 325 (65 FE) [...] MOUTH DAILY 90 Tab 1 03/20/2018 Active DilTIAZem HCl ER Beads 360 MG [id number]:HTN, goal below 130/80 TAKE 1 CAPSULE EVERY DAY 90 Cap 1 05/01/2018 Active furosemide (LASIX) 40 MG TabletIndications:Es sential [...] J45.909, J44.9 225 mL 1 07/17/2018 Active RaNITidine HCl 300 MG Tablet TAKE 1/2 TABLET BY MOUTH AT BEDTIME. 30 Tab 2 08/10/2018 Active PredniSONE (DELTASONE) 50 MG TabletIndications:An emia, unspecified type Take 1 tablet by mouth 13 hr, 7 hr, and [address] scan. 3 Tab 0 08/13/2018 Active dicyclomine (BENTYL) 20 MG TabletIndications:Ch ronic constipation TAKE 1 TABLET BY MOUTH EVERY DAY 90 Tab 0 08/17/2018 Active Terazosin HCl 2 MG Capsule TAKE [...] for pain. 30 Tab 11 11/12/2018 Active TiZANidine HCl (ZANAFLEX) 2 MG TabletIndications:Sp asm of muscle Take 1 Tab by mouth every 8 hours as needed for Muscle spasms. 30 Tab 0 11/12/2018 Active Nebulizers (NEBULIZER COMPRESSOR) MISC Inhale via nebulizer. Use as directed. Please give tubing to use with it. 1 Each 1 11/12/2018 Active documented as of this encounter (statuses as of 11/12/2018) Active Problems Problem Noted Date Body mass [...] as of this encounter (statuses as of 11/12/2018) Resolved Problems Problem Noted Date Resolved Date [...] Hypoxemia 10/08/2011 10/30/2015 Genetic Sleep Disorder Research Other*[id number] 07/25/2011 05/15/2016 Obesity, morbid (more than 1 [...] as of this encounter (statuses as of 11/12/2018) Immunizations Name Dates Previously Given Next Due [...] Vital Sign Reading Time Taken Blood Pressure 112/60 11/12/2018 12:38 PM EST Pulse 68 11/12/2018 12:38 PM EST Temperature 36 C (96.8 F) 11/12/2018 12: 38 PM EST Respiratory Rate 18 11/12/2018 12:3 8 PM EST Oxygen Saturation - - Inhaled Oxygen Concentration - - Weight 110.7 kg (244 lb) 11/12/2018 12: 38 PM EST Height 165.1 cm (5' 5") 11/12/2018 12:3 8 PM EST Body Mass Index 40.6 11/12/2018 12:38 PM EST documented in this encounter Progress Notes * Alex Pinto MD - 11/12/2018 12:50 PM EST HPI: Nina Harrington is a 77 year old female who presents with: Chief Complaint Patient presents with Pain pt reports neck, right shoulder and wrist pain x one week Pt is here for worsening neck, Rt shoulder pain radiating to her Rt upper arm, wrist. Denies any fall or injury. No tingling, numbness, weakness. 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 COPD, moderate ([facility]) J44.9 Allergic rhinitis J30.9 Diverticulitis of colon K57.32 Nocturnal hypoxia G47.34 Sleep apnea, obstructive G47.33 Incisional hernia K43.2 ACEI/ARB contraindicated [id number] HTN, goal below 140/90 I10 Hyperlipidemia with target LDL less than 100 E78.5 Controlled substance agreement signed Z79.899 Type 2 diabetes mellitus with hemoglobin A1c goal of less than 7.5% ([facility]) E11.9 Hypercalcemia E83.52 Elevated plasma metanephrines R79.89 Lower GI bleed K92.2 Irritable bowel syndrome with constipation K58.1 Ischemic colitis ([facility]) K55.9 Body mass index (BMI) of 40.0 to 44.9 in adult ([facility]) Z68.41 Current Outpatient Medications Medication Sig Dispense Refill HYDROcodone-acetaminophen 5-325 mg per tab 5-325 MG per tablet Take 1 Tab by mouth every 6 hours as needed for Pain, Mild. 120 Tab 0 atorvaSTATin (LIPITOR) 40 MG Tablet Take 1 Tab by mouth daily. 90 Tab 3 omeprazole (PRILOSEC) 20 MG CPDR TAKE 1 CAPSULE TWICE DAILY 180 Cap 1 Terazosin HCl 2 MG Capsule TAKE ONE CAPSULE BY MOUTH EVERY DAY 90 Cap 1 dicyclomine (BENTYL) 20 MG Tablet TAKE 1 TABLET BY MOUTH EVERY DAY 90 Tab 0 RaNITidine HCl 300 MG Tablet TAKE 1/2 TABLET BY MOUTH AT BEDTIME. 30 Tab 2 albuterol sulfate (PROVENTIL) (2.5 MG/3ML) 0.083% nebulizer solution USE ONE NEBULIZER TREATMENT TWICE A DAY NEEDED FOR WORSENING ASTHMA. J45.909, J44.9 225 mL 1 COMBIVENT RESPIMAT 20-100 MCG/ACT Inhaler TAKE 1 PUFF BY MOUTH 4 TIMES A DAY 4 g 11 furosemide (LASIX) 40 MG Tablet TAKE 1 TABLET BY MOUTH DAILY NEEDED FOR EDEMA 30 Tab 11 DilTIAZem HCl ER Beads 360 MG CP24 TAKE 1 CAPSULE EVERY DAY 90 Cap 1 glimepiride (AMARYL) 4 MG Tablet TAKE 1 TABLET BY MOUTH IN THE MORNING AND 1/2 TABLET BY MOUTH IN THE EVENING 135 Tab 1 KLOR-CON M20 20 MEQ TBCR TAKE 1 TABLET BY MOUTH DAILY 90 Tab 1 ferrous sulfate (FEOSOL) 325 (65 FE) MG Tablet Every other day 60 Tab 11 ondansetron ODT (ZOFRAN) 8 MG TBDP DISSOLVE 1 TABLET ON TONGUE EVERY 8 HOURS NEEDED FOR NAUSEA 60 Tab 5 [facility] SENNA 8.6 MG Tablet TAKE 2 [...] oxygen GAS Use 4 L/min(Oxygen) as directed. Probiotic Product (PROBIOTIC DAILY) Capsule Take 1 [...] 1000 UNITS PO TABS one tablet daily zafirlukast (ACCOLATE) 20 MG Tablet Take 1 Tab by mouth daily. 90 Tab 0 PredniSONE (DELTASONE) 50 MG Tablet Take 1 tablet by mouth 13 hr, 7 hr, and [address] scan. 3 Tab 0 Glucose Blood (YEIMY CONTOUR TEST) STR USE TO TEST BLOOD SUGAR 4 TIMES A DAY FOR DIAGNOSIS CODE OFE11.9 100 Strip 5 Glucose Blood (YEIMY COUNTOUR TEST) STRP R73.09/hgba1c 7.2 Tests up to 3 times daily 100 Strip 5 LANCETS [facility] Use as directed to test blood sugar once daily--Dx code 250.00 100 Each 3 The patient's medication list was reviewed and updated as needed. 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 OBJECTIVE: BP 112/60 | Pulse 68 | Temp (Src) 96.8 (Tympanic) | Resp 18 | Ht 5' 5" (1.651m) | Wt 244 lbs (110.678kg) | BMI 40.6 kg/m | BSA 2.25 m PHYSICAL EXAM: ROM at neck painful in flextion. ROM at Shoulder abduction painful. No focal weakness. Spasm+ ASSESSMENT AND PLAN: M54.2 Neck pain (primary encounter diagnosis) Plan: Referral: 1. Physical therapy referral op Medications: 1.start Meloxicam 15 mg po tabs Sig:Take 1 tab by mouth daily. for pain. M25.511 Pain in joint of right shoulder Plan: Referral: 1. Physical therapy referral op Medications: 1. Start Meloxicam 15 mg po tabs Sig:Take 1 tab by mouth daily. for pain. If needed , can refer for [place] [facility] referral in 4-6 weeks. M62.838 Spasm of muscle Plan: Medications: 1.start Tizanidine hcl 2 mg po tabs Sig:Take 1 tab by mouth every 8 hours as needed for muscle spasms. Alex Pinto MD documented in this encounter Nursing Notes * Wily Dickinson LPN - 11/12/2018 12:35 PM EST Chief Complaint Patient presents with Pain pt reports neck, right shoulder and wrist pain x one week The patient has been properly identified by confirmation of name and date of . documented in this encounter Miscellaneous Notes * Addendum Note - Alex Pinto MD - 11/12/2018 1:02 PM EST Addended by: ALEX PINTO on: 11/12/2018 01:02 PM Modules accepted: Orders documented in this encounter Plan of Treatment Upcoming Encounters Date Type Specialty Care Team Description 2018 Office Visit Podiatry Chantel Moore DPM [address] [place] [address] [place] [address] [phone] 12/03/2018 Office Visit Gastroenterology Courtney Sprague CRNP [address] [facility] [place] [address] [phone] 12/21/2018 Nutrition Services Gastroenterology Nita Enriquez RDN [address] [place] [address] [place] [address] [phone] 02/04/2019 Office Visit Internal Medicine Alex Pinto MD [address] [facility], [place] [address] [phone] 06/01/2019 Imaging Radiology Scheduled Referrals Name Priority Associated Diagnoses Order S chedule PHYSICAL THERAPY REFERRAL OP Within 10 days (routine) Neck pain Pain in joint of right shoulder Ordered: 11/12/2018 Health Maintenance Due Date Last Done Comments [...] Visit Diagnoses Diagnosis Neck pain- Primary Cervicalgia Pain in joint of right shoulder Pain in joint, shoulder region Spasm of muscle documented in this encounter Advance Directives Patient has advance care planning documents on file. For more information, please contact: [place] [phone]
--- OUTSIDE RECORDS SUMMARY | 2023-06-18 03:41 | External Medical Summary | Summary of Care ---
Author Name Unknown Organization [place] [address] Care Team Providers Care Amalgamator Name Role Phone Marcela Pinto MD Primary Care Provider [phone] Encounter Details Date Type Department Care Team Description 12/15/2018 Result Scan Unspecified Department <No scans attached> Allergies Active Allergy Reactions Severity Noted Date Comments Valsartan 07/10/2010 Enalapril 05/21/2006 Escitalopram Oxalate Nausea/vomiting 10/11/2009 Nauseated Iodinated Diagnostic Agents Nausea/vomiting 05/2010 IV Contrast Lisinopril 05/21/2006 Metoprolol Tartrate 11/18/2006 Made pulse low [place] Oil-Black Currant-Vit E 07/10/2010 Verapamil 03/21/2004 Bupropion Hcl 10/30/2009 Makes pt sick in the stomach documented as of this encounter (statuses as of 12/17/2018) Medications Medication Sig Dispensed Refills Start Date [...] Tab 11 11/12/2018 Active Nebulizers (NEBULIZER COMPRESSOR) [facility] [...] Active DilTIAZem HCl ER Beads 360 MG [id number]:HTN, goal below 130/80 TAKE 1 CAPSULE EVERY DAY 90 Cap 1 11/30/2018 Active documented as of this encounter (statuses as of 12/17/2018) Active Problems Problem Noted Date Body mass [...] as of this encounter (statuses as of 12/17/2018) Resolved Problems Problem Noted Date Resolved Date [...] Hypoxemia 10/08/2011 10/30/2015 Genetic Sleep Disorder Research Other*[id number] 07/25/2011 05/15/2016 Obesity, morbid (more than 1 [...] as of this encounter (statuses as of 12/17/2018) Immunizations Name Dates Previously Given Next Due [...] [address] [place] [address] [place] [id number] 02/04/2019 Office Visit Internal Medicine [facility] [address] [phone] 03/11/2019 Office Visit Podiatry Chantel Moore DPM [address] [place] [address] [place] [id number] 03/31/2019 [facility] [address] [phone] 06/01/2019 Imaging Radiology Health Maintenance Due Date [...] Date/Time Associated Diagnosis Comments RADIOLOGY SCANNED RESULT 12/15/2018 RADIOLOGY SCANNED RESULT 12/15/2018 RADIOLOGY SCANNED RESULT 12/15/2018 RADIOLOGY SCANNED RESULT 12/15/2018 documented in this encounter Results * RADIOLOGY SCANNED RESULT (12/15/2018) Narrative Performed At * RADIOLOGY SCANNED RESULT (12/15/2018) Narrative Performed At * RADIOLOGY SCANNED RESULT (12/15/2018) Narrative Performed At * RADIOLOGY SCANNED RESULT (12/15/2018) Narrative Performed At documented in this encounter Advance Directives Patient has advance care planning documents on file. For more information, please contact: [place] [phone]
--- OUTSIDE RECORDS SUMMARY | 2023-06-18 03:41 | External Medical Summary | Summary of Care ---
Author Name Unknown Organization [place] [address] Care Team Providers Care Tire Finisher Name Role Phone Marcela Pinto MD Primary Care Provider [phone] Reason for Visit * Reason Comments eRx-Medication Refill Encounter Details Date Type Department Care Team Description 11/24/2018 Refill General Internal Medicine [facility] [address] [facility] [place] [address] Marcela Pinto MD [address] [place] [address] [phone] Nausea Allergies Active Allergy Reactions Severity Noted Date Comments Valsartan 07/10/2010 Enalapril 05/21/2006 Escitalopram Oxalate Nausea/vomiting 10/11/2009 Nauseated Iodinated Diagnostic Agents Nausea/vomiting 05/2010 IV Contrast Lisinopril 05/21/2006 Metoprolol Tartrate 11/18/2006 Made pulse low [place] Oil-Black Currant-Vit E 07/10/2010 Verapamil 03/21/2004 Bupropion Hcl 10/30/2009 Makes pt sick in the stomach documented as of this encounter (statuses as of 11/24/2018) Medications Medication Sig Dispensed Refills Start Date [...] MOUTH DAILY 90 Tab 1 8 Active DilTIAZem HCl ER Beads 360 MG [id number]:HTN , goal below 130/80 TAKE 1 CAPSULE EVERY DAY 90 Cap 1 8 Active furosemide (LASIX) 40 MG [...] J45.909, J44.9 225 mL 1 8 Active RaNITidine HCl 300 MG Tablet TAKE 1/2 TABLET BY MOUTH AT BEDTIME. 30 Tab 2 8 Active PredniSONE (DELTASONE) 50 MG TabletIndications:A [...] mouth daily. 90 Tab 0 8 Active HYDROcodone-acetami nophen 5-325 mg per tab 5-325 MG per tabletIndications:G eneralized osteoarthritis Take 1 Tab by mouth every 6 hours as needed for Pain, Mild. 120 Tab 0 9 Active Meloxicam (MOBIC) 15 MG TabletIndications:N tamiko [...] FOR NAUSEA 60 Tab 5 9 Active ondansetron ODT (ZOFRAN) 8 MG TBDPIndications:David sea DISSOLVE 1 TABLET ON TONGUE EVERY 8 HOURS NEEDED FOR NAUSEA 60 Tab 5 8 11/24/19 19 Discontinued documented as of this encounter (statuses as of 11/24/2018) Active Problems Problem Noted Date Body mass [...] as of this encounter (statuses as of 11/24/2018) Resolved Problems Problem Noted Date Resolved Date [...] Hypoxemia 10/08/2011 10/30/2015 Genetic Sleep Disorder Research Other*[id number] 07/25/2011 05/15/2016 Obesity, morbid (more than 1 [...] as of this encounter (statuses as of 11/24/2018) Immunizations Name Dates Previously Given Next Due [...] Telephone Encounter - Nicolas Ng MD - 11/24/2018 1:09 PM EST Signed Prescriptions: Disp Refills ondansetron ODT (ZOFRAN) 8 MG TBDP 60 Tab 5 Sig: DISSOLVE 1 TABLET ON TONGUE EVERY 8 HOURS NEEDED FOR NAUSEA Authorizing Provider: NICOLAS NG * Telephone Encounter - Lilli Castro LPN - 11/24/2018 11:50 AM EST Pending Prescriptions: Disp Refills ondansetron ODT (ZOFRAN) 8 MG TBDP [Pharm*60 Tab 5 Sig: DISSOLVE 1 TABLET ON TONGUE EVERY 8 HOURS NEEDED FOR NAUSEA * Telephone Encounter - Chantel Miranda LPN - 11/24/2018 10:30 AM EST Pending Prescriptions: Disp Refills ondansetron ODT (ZOFRAN) 8 MG TBDP [Pharm*60 Tab 5 Sig: DISSOLVE 1 TABLET ON TONGUE EVERY 8 HOURS NEEDED FOR NAUSEA * Telephone Encounter - Chantel Miranda LPN - 11/24/2018 10:29 AM EST Pending Prescriptions: Disp Refills ondansetron ODT (ZOFRAN) 8 MG TBDP [Pharm*60 Tab 5 Sig: DISSOLVE 1 TABLET ON TONGUE EVERY 8 HOURS NEEDED FOR NAUSEA Last Office Visit: 11/12/2018 Next Office Visit: 02/04/2019 Scheduled Provider(s): Marcela Pinto MD Last date the medication was ordered: 12/16/17 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 COPD, moderate (HCC) J44.9 Allergic rhinitis J30.9 Diverticulitis of colon K57.32 Nocturnal hypoxia G47.34 Sleep apnea, obstructive G47.33 Incisional hernia K43.2 ACEI/ARB contraindicated [id number] HTN, goal below 140/90 I10 Hyperlipidemia with target LDL less than 100 E78.5 Controlled substance agreement signed Z79.899 Type 2 diabetes mellitus with hemoglobin A1c goal of less than 7.5% ([facility]) E11.9 Hypercalcemia E83.52 Elevated plasma metanephrines R79.89 Lower GI bleed K92.2 Irritable bowel syndrome with constipation K58.1 Ischemic colitis ([facility]) K55.9 Body mass index (BMI) of 40.0 to 44.9 in adult ([facility]) Z68.41 Labs: CREATININE, RD URINE(mg/dL) Jessica Dt/Tm Resulted Value Status 07/27/18 11:32A 07/28/18 90 FINAL POTASSIUM(mmol/L) Jessica Dt/Tm Resulted Value Status 07/27/18 11:32A 07/28/18 4.6 FINAL TSH(uIU/mL) Jessica Dt/Tm Resulted Value Status 07/27/18 11:32A 07/28/18 0.42 FINAL LDL (CALCULATED)(mg/dL) Jessica Dt/Tm Resulted Value Status 07/27/18 11:32A 07/28/18 95 FINAL LDL (DIRECT MEASURE)(mg/dL) Jessica Dt/Tm Resulted Value Status 07/27/18 11:32A 07/28/18 97 FINAL ALT(U/L) Jessica Dt/Tm Resulted Value Status 07/27/18 11:32A 07/28/18 9* FINAL Hemoglobin AIC Results: HEMOGLOBIN, A1C(%) Jessica Dt/Tm Resulted Value Status 07/27/18 11:32A 07/28/18 6.8* FINAL 01/14/18 12:03P 01/14/18 6.2 FINAL HEMOGLOBIN, R9I-YAUTDPS LAB(%) Jessica Dt/Tm Resulted Value Status 11/20/17 11/21/17 6.3 FINAL documented in this encounter Plan of Treatment Upcoming Encounters Date Type Specialty Care Team Description 2018 Office Visit Podiatry Chantel Moore DPM [address] [place] [address] [place] [id number] 12/03/2018 Office Visit [facility]ology Courtney [facility]ague CRNP [address] [facility] [address] [phone] 12/21/2018 Nutrition Services Gastroenterology Nita Enriquez RDN [address] [place] [address] [place] [address] 02/04/2019 Office Visit Internal Medicine Marcela Pinto MD [address] [facility] [address] [phone] 06/01/2019 Imaging Radiology Health Maintenance Due Date [...] alone documented in this encounter Advance Directives Patient has advance care planning documents on file. For more information, please contact: [place] [phone]
--- OUTSIDE RECORDS SUMMARY | 2023-06-18 03:41 | External Medical Summary | Summary of Care ---
Author Name Unknown Organization [place] [address] Care Team Providers Care Adviser Sales Name Role Phone Marcela Pinto MD Primary Care Provider [phone] Reason for Visit * Reason Comments Forms Request Encounter Details Date Type Department Care Team Description 11/23/2018 Telephone General Internal Medicine [facility] [address] [place] [address] Marcela Pinto MD [address] [place] [address] [phone] Forms Request Allergies Active Allergy Reactions Severity Noted Date Comments Valsartan 07/10/2010 Enalapril 05/21/2006 Escitalopram Oxalate Nausea/vomiting 10/11/2009 Nauseated Iodinated Diagnostic Agents Nausea/vomiting 05/2010 IV Contrast Lisinopril 05/21/2006 Metoprolol Tartrate 11/18/2006 Made pulse low [place] Oil-Black Currant-Vit E 07/10/2010 Verapamil 03/21/2004 Bupropion [...] Active DilTIAZem HCl ER Beads 360 MG ZT39Lrlsgljtyfg:HTN, goal below 130/80 TAKE 1 CAPSULE EVERY [...] Muscle spasms. 30 Tab 0 11/19/2018 Active documented as of this encounter (statuses [...] Hypoxemia 10/08/2011 10/30/2015 Genetic Sleep Disorder Research Other*[id number] 07/25/2011 05/15/2016 Obesity, morbid (more than 1 [...] encounter Miscellaneous Notes * Telephone Encounter - Tsering Austin LPN - 11/24/2018 8:48 AM EST Will complete upon arival. * Telephone Encounter - Joanna Ontiveros LPN - 11/23/2018 12:38 PM EST [place] home pt calling and will be faxing over a form to be completed for nebulizer supplies. Please complete and fax back. documented in this encounter Plan of Treatment Upcoming Encounters Date Type Specialty Care Team Description 2018 Office Visit Podiatry Chantel Moore DPM [address] [place] [address] [place] [address] 12/03/2018 Office Visit Gastroenterology Courtney Sprague CRNP [address] [facility] [place] [address] 12/21/2018 Nutrition Services Gastroenterology Nita Enriquez RDN [address] [place] [address] [place] [address] 02/04/2019 Office Visit Internal Medicine Marcela Pinto MD 200 [place] [address] [phone] 06/01/2019 Imaging Radiology Health Maintenance Due Date [...] For more information, please contact: [place] [phone]
--- OUTSIDE RECORDS SUMMARY | 2023-06-18 03:41 | External Medical Summary | Summary of Care ---
Author Name Unknown Organization [place] [address] Care Team Providers Care Practice Clinician Name Role Phone Marcela Pinto MD Primary Care Provider [phone] Reason for Visit * Reason Comments Medication Refill Encounter Details Date Type Department Care Team Description 11/19/2018 Refill General Internal Medicine [facility] [address] [place] [address] Marcela Pinto MD [address] [place] [address] [phone] Spasm of muscle Allergies Active Allergy Reactions Severity Noted Date Comments Valsartan 07/10/2010 Enalapril 05/21/2006 Escitalopram Oxalate Nausea/vomiting 10/11/2009 Nauseated Iodinated Diagnostic Agents Nausea/vomiting 05/2010 IV Contrast Lisinopril 05/21/2006 Metoprolol Tartrate 11/18/2006 Made pulse low [place] Oil-Black Currant-Vit E 07/10/2010 Verapamil 03/21/2004 Bupropion Hcl 10/30/2009 Makes pt sick in the stomach documented as of this encounter (statuses as of 11/19/2018) Medications Medication Sig Dispensed Refills Start Date [...] DAYS NEEDED FOR CONSTIPATION 0 8 Active ondansetron ODT (ZOFRAN) 8 MG TBDPIndications:David sea DISSOLVE 1 TABLET ON TONGUE EVERY 8 HOURS NEEDED FOR NAUSEA 60 Tab 5 8 Active ferrous sulfate (FEOSOL) 325 (65 [...] Active DilTIAZem HCl ER Beads 360 MG LF89Kizgbnokaht:HTN , goal below 130/80 TAKE 1 CAPSULE [...] Muscle spasms. 30 Tab 0 9 Active TiZANidine HCl (ZANAFLEX) 2 MG TabletIndications:S pasm of muscle Take 1 Tab by mouth every 8 hours as needed for Muscle spasms. 30 Tab 0 9 11/19/19 19 Discontinued documented as of this encounter (statuses as of 11/19/2018) Active Problems Problem Noted Date Body mass [...] as of this encounter (statuses as of 11/19/2018) Resolved Problems Problem Noted Date Resolved Date [...] Hypoxemia 10/08/2011 10/30/2015 Genetic Sleep Disorder Research Other*[id number] 07/25/2011 05/15/2016 Obesity, morbid (more than 1 [...] as of this encounter (statuses as of 11/19/2018) Immunizations Name Dates Previously Given Next Due [...] Telephone Encounter - Carine Barber MD - 11/19/2018 12:05 PM EST Signed Prescriptions: Disp Refills TiZANidine HCl (ZANAFLEX) 2 MG Tablet 30 Tab 0 Sig: Take 1 Tab by mouth every 8 hours as needed for Muscle spasms. Authorizing Provider: CARINE BARBER * Telephone Encounter - Lilli Castro LPN - 11/19/2018 11:39 AM EST Pending Prescriptions: Disp Refills TiZANidine HCl (ZANAFLEX) 2 MG Tablet 30 Tab 0 Sig: Take 1 Tab by mouth every 8 hours as needed for Muscle spasms. * Telephone Encounter - Elenita Dallas OSA - 11/19/2018 11:07 AM EST REQUESTING 90 DAY SUPPLY Pending Prescriptions: Disp Refills TiZANidine HCl (ZANAFLEX) 2 MG Tablet 30 Tab 0 Sig: Take 1 Tab by mouth every 8 hours as needed for Muscle spasms. Last Office Visit: 11/12/2018 Next Office Visit: 02/04/2019 Scheduled Provider(s): Marcela Pinto MD If no future appointments scheduled, and last appointment is greater than a year ago, please schedule patient for a follow-up appointment Last date the medication was ordered: 11/12/2018 Patient Phone Numbers Labs: Lab Results Component Value Date/Time CREAT 0.9 07/27/2018 11:32 AM POTASSIUM 4.6 07/27/2018 11:32 AM TSH 0.42 07/27/2018 11:32 AM LDLCALC 95 07/27/2018 11:32 AM LDLDIRECT 97 07/27/2018 11:32 AM ALT 9 (L) 07/27/2018 11:32 AM HGBA1C 6.8 (H) 07/27/2018 11:32 AM documented in this encounter Plan of Treatment Upcoming Encounters Date Type Specialty Care Team Description 2018 Office Visit Podiatry Chantel Moore DPM [address] [place] [address] [place] [address] 12/03/2018 Office Visit Gastroenterology Courtney Sprague CRNP [address] [facility] [place] [address] [phone] 12/21/2018 Nutrition Services Gastroenterology Nita Enriquez RDN [address] [place] [address] [place] [address] [phone] 02/04/2019 Office Visit Internal Medicine Marcela Pinto MD [address] [place] [address] [phone] 06/01/2019 Imaging Radiology Health Maintenance Due Date [...] as of this encounter Visit Diagnoses Diagnosis Spasm of muscle documented in this encounter Advance Directives Patient has advance care planning documents on file. For more information, please contact: [place] [phone]
--- OUTSIDE RECORDS SUMMARY | 2023-06-18 03:41 | External Medical Summary | Summary of Care ---
Author Name Unknown Organization [place] [address] Care Team Providers Care Academic Specialist Name Role Phone Marcela Pinto MD Primary Care Provider Reason for Visit * Reason Comments Order Request Encounter Details Date Type Department Care Team Description 11/24/2018 Telephone General Internal Medicine [facility] [address] [place] [address] Marcela Pinto MD 200 [place] [address] [phone] Order Request Allergies Active Allergy Reactions Severity Noted Date Comments Valsartan 07/10/2010 Enalapril 05/21/2006 Escitalopram Oxalate Nausea/vomiting 10/11/2009 Nauseated Iodinated Diagnostic Agents Nausea/vomiting 05/2010 IV Contrast Lisinopril 05/21/2006 Metoprolol Tartrate 11/18/2006 Made pulse low [place] Oil-Black Currant-Vit E 07/10/2010 Verapamil 03/21/2004 Bupropion Hcl 10/30/2009 Makes pt sick in the stomach documented as of this encounter (statuses as of 11/25/2018) Medications Medication Sig Dispensed Refills Start Date [...] Active DilTIAZem HCl ER Beads 360 MG CI40Zasldbgaqbd:HTN, goal below 130/80 TAKE 1 CAPSULE EVERY [...] FOR NAUSEA 60 Tab 5 11/24/2018 Active documented as of this encounter (statuses as of 11/25/2018) Active Problems Problem Noted Date Body mass [...] as of this encounter (statuses as of 11/25/2018) Resolved Problems Problem Noted Date Resolved Date [...] Hypoxemia 10/08/2011 10/30/2015 Genetic Sleep Disorder Research Other*[id number] 07/25/2011 05/15/2016 Obesity, morbid (more than 1 [...] as of this encounter (statuses as of 11/25/2018) Immunizations Name Dates Previously Given Next Due [...] Telephone Encounter - Tsering Austin LPN - 11/25/2018 9:51 AM EST Faxed OV notes, script, diagnosis codes to number below. * Telephone Encounter - Ashley Mobley OSA - 11/24/2018 2:37 PM EST Gisel from [employer] [place] Patient calling because they need chart notes, a signed script with a diagnosis code for a nebulizer. Please fax to [phone]. documented in this encounter Plan of Treatment Upcoming Encounters Date Type Specialty Care Team Description 2018 Office Visit Podiatry Chantel Moore DPM [address] [place] [address] [place] [id number] 12/03/2018 Office Visit Gastroenterology Courtney Sprague CRNP [address] [facility] [place] [address] [phone] 12/21/2018 Nutrition Services Gastroenterology Nita Enriquez RDN [address] [place] [address] [place] [address] 02/04/2019 Office Visit Internal Medicine Marcela Pinto MD 200 [place] [address] [phone] 06/01/2019 Imaging Radiology Health Maintenance Due Date [...] For more information, please contact: [place] [phone]
--- OUTSIDE RECORDS SUMMARY | 2023-06-18 03:41 | External Medical Summary | Summary of Care ---
Author Name Unknown Organization [place] [address] Care Team Providers Care Digester Cook Name Role Phone Marcela Pinto MD Primary Care Provider [phone] Reason for Visit * Reason Comments Medication Refill Encounter Details Date Type Department Care Team Description 11/16/2018 Refill Gastroenterology, [facility] [address] [facility] [place] [address] Madeleine Coello MD [address] [place] [address] Chronic constipation Allergies Active Allergy Reactions Severity Noted Date Comments Valsartan 07/10/2010 Enalapril 05/21/2006 Escitalopram Oxalate Nausea/vomiting 10/11/2009 Nauseated Iodinated Diagnostic Agents Nausea/vomiting 05/2010 IV Contrast Lisinopril 05/21/2006 Metoprolol Tartrate 11/18/2006 Made pulse low [place] Oil-Black Currant-Vit E 07/10/2010 Verapamil 03/21/2004 Bupropion Hcl 10/30/2009 Makes pt sick in the stomach documented as of this encounter (statuses as of 11/16/2018) Medications Medication Sig Dispensed Refills Start Date [...] Active DilTIAZem HCl ER Beads 360 MG FK25Ictovdcpzeq:HTN , goal below 130/80 TAKE 1 CAPSULE [...] needed for Pain, Mild. 120 Tab 0 01/23/201 9 Active Meloxicam (MOBIC) 15 MG TabletIndications:N tamiko pain,Pain in joint of right shoulder Take 1 Tab by mouth daily. for pain. 30 Tab 11 9 Active TiZANidine HCl (ZANAFLEX) 2 MG TabletIndications:S pasm of muscle Take 1 Tab by mouth every 8 hours as needed for Muscle spasms. 30 Tab 0 9 Active Nebulizers (NEBULIZER COMPRESSOR) MISC Inhale via nebulizer. Use as directed. Please give tubing to use with it. 1 Each 1 9 Active dicyclomine (BENTYL) 20 MG TabletIndications:C hronic constipation Take 1 Tab by mouth daily. 90 Tab 0 9 Active dicyclomine (BENTYL) 20 MG TabletIndications:C hronic constipation TAKE 1 TABLET BY MOUTH EVERY DAY 90 Tab 0 8 11/16/19 19 Discontinued documented as of this encounter (statuses as of 11/16/2018) Active Problems Problem Noted Date Body mass [...] as of this encounter (statuses as of 11/16/2018) Resolved Problems Problem Noted Date Resolved Date [...] Hypoxemia 10/08/2011 10/30/2015 Genetic Sleep Disorder Research Other*[id number] 07/25/2011 05/15/2016 Obesity, morbid (more than 1 [...] as of this encounter (statuses as of 11/16/2018) Immunizations Name Dates Previously Given Next Due Hepatitis B, 20+ yrs 10/01/2017,04/21/2017,06/08 /2017 Pneumococcal Conjugate Vacc, 13 Valent (Prevnar) 03/28/2015 [...] encounter Miscellaneous Notes * Telephone Encounter - Madeleine Coello MD - 11/16/2018 3:52 PM EST Signed Prescriptions: Disp Refills dicyclomine (BENTYL) 20 MG Tablet 90 Tab 0 Sig: Take 1 Tab by mouth daily. Authorizing Provider: MADELEINE COELLO * Telephone Encounter - Randa Oswald RN - 11/16/2018 3:42 PM EST Received fax refill request. Pending Prescriptions: Disp Refills dicyclomine (BENTYL) 20 MG Tablet 90 Tab 0 Sig: Take 1 Tab by mouth daily. Last Office Visit: 08/13/2018 Next Office Visit: 12/03/2018 Scheduled Provider(s): NIECY Marti If no future appointments scheduled, and last appointment is greater than a year ago, please schedule patient for a follow-up appointment Last date the medication was ordered: 08/17/18 Patient Phone Numbers Labs: Lab Results Component [...] [address] [place] [address] [place] [address] [phone] 12/03/2018 Office Visit Gastroenterology Courtney Sprague CRNP [address] [facility] [place] [address] [phone] 12/21/2018 Nutrition Services Gastroenterology Nita Enriquez RDN [address] [place] [address] [place] [id number] 02/04/2019 Office Visit Internal Medicine Marcela Pinto MD 200 [place] [address] [phone] 06/01/2019 Imaging Radiology Health Maintenance Due Date [...] constipation documented in this encounter Advance Directives Patient has advance care planning documents on file. For more information, please contact: [place] [phone]
--- OUTSIDE RECORDS SUMMARY | 2023-06-18 03:41 | External Medical Summary | Summary of Care ---
Author Name Unknown Organization [place] [address] Care Team Providers Care Clinical Applications Manager Name Role Phone Marcela Pinto MD Primary Care Provider [phone] Reason for Visit * Reason Comments Appointment PHYSICAL THERAPY REF ERRAL OP Encounter Details Date Type Department Care Team Description 11/12/2018 Telephone General Internal Medicine [facility] [address] [place] [address] Marcela Pinto MD 200 [place] [address] [phone] Appointment ( PHYSICAL THERAPY REFERRAL OP) Allergies Active Allergy Reactions Severity Noted Date Comments Valsartan 07/10/2010 Enalapril 05/21/2006 Escitalopram Oxalate Nausea/vomiting 10/11/2009 Nauseated Iodinated Diagnostic Agents Nausea/vomiting 05/2010 IV Contrast Lisinopril 05/21/2006 Metoprolol Tartrate 11/18/2006 Made pulse low [place] Oil-Black Currant-Vit E 07/10/2010 Verapamil 03/21/2004 Bupropion [...] Active DilTIAZem HCl ER Beads 360 MG [id number]:HTN, goal below 130/80 TAKE 1 CAPSULE EVERY [...] Hypoxemia 10/08/2011 10/30/2015 Genetic Sleep Disorder Research Other*[id number] 07/25/2011 05/15/2016 Obesity, morbid (more than 1 [...] Telephone Encounter - Elenita Nichole OSA - 11/12/2018 1:07 PM EST Pt will self schedule, order given to pt documented in this encounter Plan of Treatment Upcoming Encounters Date Type Specialty Care Team Description 2018 Office Visit Podiatry Chantel Moore DPM [address] [place] [address] [place] [id number] 12/03/2018 Office Visit Gastroenterology Courtney Sprague CRNP [address] [facility] [place] [address] [phone] 12/21/2018 Nutrition Services Gastroenterology Nita Enriquez RDN [address] [place] [address] [place] [address] [phone] 02/04/2019 Office Visit Internal Medicine Marcela Pinto MD 200 [place] [address] [phone] 06/01/2019 Imaging Radiology Health Maintenance Due Date [...] For more information, please contact: [place] [phone]
--- OUTSIDE RECORDS SUMMARY | 2023-06-18 03:41 | External Medical Summary | Summary of Care ---
Author Name Unknown [place] [address] Care Team Providers Care Bus Attendant Name Role Phone Marcela Pinto MD Primary Care Provider [phone] Reason for Visit * Reason Comments case management Encounter Details Date Type Department Care Team Description 11/19/2018 Rubber Cutting Machine Tender Ancillary 1st Floor, [place] [address] [facility] [place], [place] [id number] Randa Esqueda, BIJAL [address] [facility] [place] [id number] COPD, moderate (HCC)* Allergies Active Allergy Reactions Severity Noted Date Comments Valsartan 07/10/2010 Enalapril 05/21/2006 Escitalopram Oxalate Nausea/vomiting 10/11/2009 Nauseated Iodinated Diagnostic Agents Nausea/vomiting 05/2010 IV Contrast Lisinopril 05/21/2006 Metoprolol Tartrate 11/18/2006 Made pulse low [place] Oil-Black Currant-Vit E 07/10/2010 Verapamil 03/21/2004 [...] Active DilTIAZem HCl ER Beads 360 MG LB31Qzvywtaweem:HTN, goal below 130/80 TAKE 1 CAPSULE EVERY [...] Hypoxemia 10/08/2011 10/30/2015 Genetic Sleep Disorder Research Other*[id number] 07/25/2011 05/15/2016 Obesity, morbid (more than 1 [...] as of this encounter Progress Notes * Randa Esqueda RN - 11/19/2018 1:53 PM EST Case Management Assessment Follow up assessment completed with patient. Is this call for a hospital, residential or rehab facility discharge to home? No S: Reports: Patient reports she started outpatient therapy 11/18/18 for new neck and right shoulder pain. She reports her breathing is at baseline; she gets short of breath with exertion. She is using her inhalers as prescribed; uses her nebulizer 2-4 times a day. Patient denies chest pain, dizziness. She does have edema of her ankles at the end of the day; takes Lasix every other day. She reports a good appetite. She is working with RD; adhering to 1500 calorie diet and aware to watch CHO intake. She is testing her blood sugar daily; denies hypoglycemia. She reports highest blood sugar reading around 200 when she eats concentrated sweets. She denies elimination problems. She denies change in sleep habit; is wearing her oxygen at night. She is steady on her feet; denies falls. O: Phone visit for follow up assessment. She saw Pulmonology 10/22/18; Rescue Kit Prednisone re-prescribed. PFT done at appointment and showed slight improvement. Medications: takes all medications as prescribed. A: Patient Centered Prioritized Goals: Patient and caregiver demonstrate basic understanding of their disease process. Exacerbations have been prevented, minimized or reduced in severity. Co-morbid conditions identified and managed. Patient/ caregiver demonstrates adherence to treatment plan. Patient will be proactive with chronic disease management in next 3 months Patient's neck and shoulder pain will resolve in next 3 months Patient will have no falls in next 3 months Identified Barriers: Older than 70 years FUNCTIONAL [...] to communicate, understand instructions, process information. P: Rubber Cutting Machine Tender Interventions: Reinforce Self Management Action Plan established at previous visit Patient aware to watch salt intake, elevated legs when she is sitting and wear compression stockings. COPD: Pt instructed to: -Call with increased SOB, wheezing, chest tightness, increased cough, increased sputum with change in color or consistency and fever. -Wash hands often -Drink plenty of fluids -Use inhalers as directed, do not stop or skip doses -Avoid stress -Rest when tired or SOB -Avoid triggers -Clean inhalers once a week PCP Notified of enrollment in CM/HM program: No SNP Member? No Re-evaluation of plan of care and progress towards goals achievement: Plan to call patient in 2-3 months to reassess and update plan of care, instructed to call Rubber Cutting Machine Tender or Primary Care Provider with change in symptoms or as needed before next follow-up, verbalizesunderstanding and agrees with plan. Randa Esqueda RN Outpatient Rubber Cutting Machine Tender documented in this encounter Plan of Treatment Upcoming Encounters Date Type Specialty Care Team Description 2018 Office Visit Podiatry Chantel Moore DPM [address] [place] [address] [place] [address] 12/03/2018 Office Visit Gastroenterology Courtney Sprague CRNP [address] [place] [address] [phone] 12/21/2018 Nutrition Services Gastroenterology Nita Enriquez RDN [address] [place] [address] [place] [address] [phone] 02/04/2019 Office Visit Internal Medicine Marcela Pinto MD 200 [facility], [place] [address] [phone] 06/01/2019 Imaging Radiology Health Maintenance Due Date [...] Primary Chronic airway obstruction, not elsewhere classified documented in this encounter Advance Directives Patient has advance care planning documents on file. For more information, please contact: [place] [phone]
--- OUTSIDE RECORDS SUMMARY | 2023-06-18 03:41 | External Medical Summary | Summary of Care ---
Author Name Unknown Organization [place] [address] Care Team Providers Care Weatherseal Technician Name Role Phone Marcela Pinto MD Primary Care Provider Cristina tello Reason for Visit * Reason Comments eRx-Medication Refill Encounter Details Date Type Department Care Team Description 11/30/2018 Refill General Internal Medicine [facility] [address] [place] [address] Marcela Pinto MD [address] [place] [address] [phone] HTN, goal below 130/80 Allergies Active Allergy Reactions Severity Noted Date Comments Valsartan 07/10/2010 Enalapril 05/21/2006 Escitalopram Oxalate Nausea/vomiting 10/11/2009 Nauseated Iodinated Diagnostic Agents Nausea/vomiting 05/2010 IV Contrast Lisinopril 05/21/2006 Metoprolol Tartrate 11/18/2006 Made pulse low [place] Oil-Black Currant-Vit E 07/10/2010 Verapamil 03/21/2004 Bupropion Hcl 10/30/2009 Makes pt sick in the stomach documented as of this encounter (statuses as of 11/30/2018) Medications Medication Sig Dispensed Refills Start Date [...] Active DilTIAZem HCl ER Beads 360 MG GJ39Jplsoswyxmj:HTN , goal below 130/80 TAKE 1 CAPSULE EVERY DAY 90 Cap 1 9 Active DilTIAZem HCl ER Beads 360 MG ZF12Zjuuwjekbly:HTN , goal below 130/80 TAKE 1 CAPSULE EVERY DAY 90 Cap 1 8 11/30/19 19 Discontinued documented as of this encounter (statuses as of 11/30/2018) Active Problems Problem Noted Date Body mass [...] colon 07/25/2011 COPD, moderate 07/19/2011 Overview: Dr Solic every 6 months Allergic rhinitis 07/19/2011 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 Asthma with severity to be determined Carpal tunnel syndrome EDEMA dependent, ankles Generalized osteoarthritis ACEI/ARB contraindicated documented as of this encounter (statuses as of 11/30/2018) Resolved Problems Problem Noted Date Resolved Date [...] Hypoxemia 10/08/2011 10/30/2015 Genetic Sleep Disorder Research Other*[id number] 07/25/2011 05/15/2016 Obesity, morbid (more than 1 [...] as of this encounter (statuses as of 11/30/2018) Immunizations Name Dates Previously Given Next Due [...] Telephone Encounter - Nicolas Ng MD - 11/30/2018 5:27 PM EST Signed Prescriptions: Disp Refills DilTIAZem HCl ER Beads 360 MG CP24 90 Cap 1 Sig: TAKE 1 CAPSULE EVERY DAY Authorizing Provider: NICOLAS NG * Telephone Encounter - Lilli Castro LPN - 11/30/2018 2:55 PM EST Pending Prescriptions: Disp Refills DilTIAZem HCl ER Beads 360 MG CP24 [Pharm*90 Cap 1 Sig: TAKE 1 CAPSULE EVERY DAY * Telephone Encounter - Chantel Miranda LPN - 11/30/2018 7:38 AM EST Pending Prescriptions: Disp Refills DilTIAZem HCl ER Beads 360 MG CP24 [Pharm*90 Cap 1 Sig: TAKE 1 CAPSULE EVERY DAY * Telephone Encounter - Chantel Miranda LPN - 11/30/2018 7:38 AM EST Pending Prescriptions: Disp Refills DilTIAZem HCl ER Beads 360 MG CP24 [Pharm*90 Cap 1 Sig: TAKE 1 CAPSULE EVERY DAY Last Office Visit: 11/12/2018 Next Office Visit: 02/04/2019 Scheduled Provider(s): Marcela Pinto MD Last date the medication was ordered: 05/01/18 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 COPD, moderate (HCC) J44.9 Allergic rhinitis J30.9 Diverticulitis of colon K57.32 Nocturnal hypoxia G47.34 Sleep apnea, obstructive G47.33 Incisional hernia K43.2 ACEI/ARB contraindicated [id number] HTN, goal below 140/90 I10 Hyperlipidemia with [...] 40.0 to 44.9 in adult ([facility]) Z68.41 Labs: CREATININE, RD URINE(mg/dL) Jessica [...] Jessica Dt/Tm Resulted Value Status 07/27/18 11:32A 10/16/18 9* FINAL Hemoglobin AIC Results: HEMOGLOBIN, A1C(%) Jessica Dt/Tm Resulted Value Status 07/27/18 11:32A 07/28/18 6.8* FINAL 01/14/18 12:03P 01/14/18 6.2 FINAL HEMOGLOBIN, C4L-JEGSJCT LAB(%) Jessica Dt/Tm Resulted Value Status 11/20/17 11/21/17 6.3 FINAL documented in this encounter Plan of Treatment Upcoming Encounters Date Type Specialty Care Team Description 12/10/2018 Office Visit Podiatry Chantel Moore DPM [address] [place] [address] [place] [address] 12/16/2018 Office Visit Gastroenterology Courtney Sprague CRNP [address] [facility] [place] [address] [phone] 12/21/2018 Nutrition Services Gastroenterology Nita Enriquez RDN [address] [place] [address] [place] [address] 02/04/2019 Office Visit Internal Medicine Marcela Pinto MD 200 [place] [address] [phone] 06/01/2019 Imaging Radiology Health Maintenance Due Date [...] hypertension documented in this encounter Advance Directives Patient has advance care planning documents on file. For more information, please contact: [place] [phone]
--- OUTSIDE RECORDS SUMMARY | 2023-06-18 03:41 | External Medical Summary | Summary of Care ---
Author Name Unknown Organization [place] [address] Care Team Providers Care Quality Assurance Inspector Name Role Phone Marcela Pinto MD Primary Care Provider [phone] Encounter Details Date Type Department Care Team Description 12/15/2018 Scan Encounter Unspecified Department <No scans attached> Allergies Active Allergy Reactions Severity Noted Date Comments Valsartan 07/10/2010 Enalapril 05/21/2006 Escitalopram Oxalate Nausea/vomiting 10/11/2009 Nauseated Iodinated Diagnostic Agents Nausea/vomiting 05/2010 IV Contrast Lisinopril 05/21/2006 Metoprolol Tartrate 11/18/2006 Made pulse low [place] Oil-Black Currant-Vit E 07/10/2010 Verapamil 03/21/2004 Bupropion [...] Tab 11 11/12/2018 Active Nebulizers (NEBULIZER COMPRESSOR) [facility] [...] Active DilTIAZem HCl ER Beads 360 MG MK39Kwgtkbjdwci:HTN, goal below 130/80 TAKE 1 CAPSULE EVERY [...] Hypoxemia 10/08/2011 10/30/2015 Genetic Sleep Disorder Research Other*[id number] 07/25/2011 05/15/2016 Obesity, morbid (more than 1 [...] [address] [place] [address] [place] [id number] 02/04/2019 Office Visit Internal Medicine [facility] [address] [phone] 03/11/2019 Office Visit Podiatry Chantel Moore DPM [address] [place] [address] [place] [id number] 03/31/2019 Office Visit [facility]astroenterology Zulay Eagle DO [address] [facility] [address] [phone] 06/01/2019 Imaging Radiology Health Maintenance Due Date [...] For more information, please contact: [place] [phone]
--- OUTSIDE RECORDS SUMMARY | 2023-06-18 03:42 | External Medical Summary | Summary of Care ---
Author Name Unknown Organization [place] [address] Care Team Providers Care Skin Drier Name Role Phone Marcela Pinto MD Primary Care Provider [phone] Encounter Details Date Type Department Care Team Description 10/20/2018 Telephone General Internal Medicine [facility] [address] [place] [address] Marcela Pinto MD 200 [facility] [place] [address] [phone] Allergies Active Allergy Reactions Severity Noted Date Comments Valsartan 07/10/2010 Enalapril 05/21/2006 Escitalopram Oxalate Nausea/vomiting 10/11/2009 Nauseated Iodinated Diagnostic Agents Nausea/vomiting 05/2010 IV Contrast Lisinopril 05/21/2006 Metoprolol Tartrate 11/18/2006 Made pulse low [place] Oil-Black Currant-Vit E 07/10/2010 Verapamil 03/21/2004 Bupropion Hcl 10/30/2009 Makes pt sick in the stomach as of this encounter Medications Medication Sig Dispensed Refills Start Date [...] Active DilTIAZem HCl ER Beads 360 MG HD29Sggpxdnthfq:HTN, goal below 130/80 TAKE 1 CAPSULE EVERY [...] mouth daily. 90 Tab 3 09/07/2018 Active HYDROcodone-acetamin ophen 5-325 mg per tab 5-325 MG per tabletIndications:Ge neralized osteoarthritis Take 1 Tab by mouth every 6 hours as needed for Pain, Mild. 120 Tab 0 09/29/2018 Active zafirlukast (ACCOLATE) 20 MG TabletIndications:As thma with severity to be determined Take 1 Tab by mouth daily. 90 Tab 0 10/07/2018 Active as of this encounter Active Problems Problem Noted Date Body mass [...] EDEMA dependent, ankles Generalized osteoarthritis ACEI/ARB contraindicated as of this encounter Resolved Problems Problem Noted Date Resolved Date [...] Hypoxemia 10/08/2011 10/30/2015 Genetic Sleep Disorder Research Other*[id number] 07/25/2011 05/15/2016 Obesity, morbid (more than 1 [...] Mixed dyslipidemia 09/19/2009 Overview: Per Lipid Taxonomy. as of this encounter Immunizations Name Dates Previously Given Next Due [...] older)(Boostrix) 06/04/2018 Varicella Zoster Vaccine (Adult) 07/06/2012 as of this encounter 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 Tobacco Use Types Packs/Day Years Used Date Never Smoker Smokeless Tobacco: Never Used Alcohol Use Drinks/Week oz/Week Comments No Sex Assigned at Date Recorded Not on file Job Start Date Occupation Industry Not on file Not on file Not on file Travel History Travel Start Travel End as of this encounter Miscellaneous Notes * Telephone Encounter - Nicolas Alicia LPN - 10/21/2018 9:12 AM EST Pt. Does have shortness of breath but she stated she is an asthmatic,does have swelling in both feet and ankles, right side worse than left,did not take her furosemide 40 mgs yesterday because she had an appointment,she also mentioned that she has been eating cheese and crackers and is wondering ifthe sodium can be causing some of the swelling * Telephone Encounter - GuRenetta, NICOL - 10/20/2018 6:04 PM EST Called, left message for patient to return call. Thank you * Telephone Encounter - Marcela Pinto MD - 10/20/2018 4:09 PM EST See message below. Can we call the patient and find out how she is doing. Any sob or swealling? Does she take diuretic? Depending on how she feels needs office visit . Thanks. * Telephone Encounter - Marcela Pinto MD - 10/20/2018 4:09 PM EST ----- Message from Nita Enriquez RDN sent at 10/20/2018 3:55 PM EST ----- Dr. Pinto, I am following patient for general weight management. Patient had gained about 12 lbs since April. Inoticed at the visit patient has +3 right lower leg edema and +2 left leg edema. She hasn't taken any diuretics for awhile. Please advise. Can you Have one of your nurses to contact the patient re: this. in this encounter Plan of Treatment Upcoming Encounters Date Type Specialty Care Team Description 2018 Office Visit Podiatry Chantel Moore DPM [address] [place] [address] [place] [id number] 12/03/2018 Office Visit Gastroenterology Courtney Sprague CRNP 132 [facility] [place] [address] 12/21/2018 Nutrition Services Gastroenterology Nita Enriquez RDN [address] [place] [address] [place] [address] 02/04/2019 Office Visit Internal Medicine Marcela Pinto MD [address] [place] [address] [phone] 06/01/2019 Imaging Radiology Health Maintenance Due Date Last Done Comments DIABETES-EYE EXAM 08/04/2018 08/04/2017, , 09/23/2011, Additional history exists DIABETES-FOOT EXAM 01/16/2019 01/16/2018, 0 11/15/2016, 02/23/2016, Additional history exists DIABETES-HGBA1C EVERY 6 MONTHS 01/25/2019 1 , 01/14/2018, 11/20/2017, Additional history exists DIABETES-URINE MICROALBUMIN EVERY 12 MONTHS 07/27/2019 07/27/2018, 03/15/2018, 11/20/2017, Additional history exists DXA-EVERY 5 YRS-USE SMARTSET # [id number] TO ORDER 05/01/2020 05/01/2015, 06/19/2010, 06/19/2010, Additional history exists COLONOSCOPY-EVERY 3 YRS AGES 18-100 02/28/2021 02/28/2018, 06/05/2017, 05/29/2016, Additional history exists DTaP,Tdap,and Td Vaccines (2 - Td) 06/04/20282017, 02/28/2009 PNEUMOCOCCAL ADULT 65 YRS AND OVER Completed 2014, 05/21/2006 Influenza Vaccine (FLU shot) Completed 01/2018, 07/30/2017, 08/15/2016, Additional history exists as of this encounter Implants Not on fileas of this encounter Advance Directives Patient has advance care planning documents on file. For more information, please contact: [place] [phone]
--- OUTSIDE RECORDS SUMMARY | 2023-06-18 03:42 | External Medical Summary | Summary of Care ---
Author Name Unknown Organization [place] [address] Care Team Providers Care Devil Tender Name Role Phone Marcela Pinto MD Primary Care Provider [phone] Encounter Details Date Type Department Care Team Description 10/20/2018 Telephone General Internal Medicine [facility] [address] [place] [address] Marcela Pinto MD 200 [facility] [place] [address] [phone] Allergies Active Allergy Reactions Severity Noted Date Comments Valsartan 07/10/2010 Enalapril 05/21/2006 Escitalopram Oxalate Nausea/vomiting 10/11/2009 Nauseated Iodinated Diagnostic Agents Nausea/vomiting 05/2010 IV Contrast Lisinopril 05/21/2006 Metoprolol Tartrate 11/18/2006 Made pulse low [place] Oil-Black Currant-Vit E 07/10/2010 Verapamil 03/21/2004 [...] Active DilTIAZem HCl ER Beads 360 MG HW74Fqtgalwigta:HTN, goal below 130/80 TAKE 1 CAPSULE EVERY [...] Hypoxemia 10/08/2011 10/30/2015 Genetic Sleep Disorder Research Other*[id number] 07/25/2011 05/15/2016 Obesity, morbid (more than 1 [...] * Telephone Encounter - Renetta GuNICOL - 10/20/2018 6:04 PM EST Called, left [...] [address] [place] [address] [place] [id number] 12/03/2018 Office Visit Gastroenterology Courtney Sprague CRNP 132 [facility] [place] [address] [phone] 12/21/2018 Nutrition Services Gastroenterology Nita Enriquez RDN [address] [place] [address] [place] [address] [phone] 02/04/2019 Office Visit Internal Medicine [facility]a [facility]into MD 200 [facility] [address] [phone] 06/01/2019 Imaging Radiology Health Maintenance Due Date [...] For more information, please contact: [place] [phone]
--- OUTSIDE RECORDS SUMMARY | 2023-06-18 03:42 | External Medical Summary | Summary of Care ---
Author Name Unknown Organization [place] [address] Care Team Providers Care Hairspring Vibrator Name Role Phone Marcela Pinto MD Primary Care Provider [phone] Encounter Details Date Type Department Care Team Description 10/20/2018 Telephone General Internal Medicine [facility] [address] [place] [address] Marcela Pinto MD 200 [facility] [place] [address] [phone] Allergies Active Allergy Reactions Severity Noted Date Comments Valsartan 07/10/2010 Enalapril 05/21/2006 Escitalopram Oxalate Nausea/vomiting 10/11/2009 Nauseated Iodinated Diagnostic Agents Nausea/vomiting 05/2010 IV Contrast Lisinopril 05/21/2006 Metoprolol Tartrate 11/18/2006 Made pulse low [place] Oil-Black Currant-Vit E 07/10/2010 Verapamil 03/21/2004 Bupropion [...] Active DilTIAZem HCl ER Beads 360 MG YH29Uebxzbczaka:HTN, goal below 130/80 TAKE 1 CAPSULE EVERY [...] Hypoxemia 10/08/2011 10/30/2015 Genetic Sleep Disorder Research Other*[id number] 07/25/2011 05/15/2016 Obesity, morbid (more than 1 [...] [address] [place] [address] [place] [id number] 12/03/2018 Office Visit Gastroenterology Courtney Sprague CRNP 132 [facility] [place] [address] [phone] 12/21/2018 Nutrition Services Gastroenterology Nita Enriquez RDN [address] [place] [address] [place] [id number] 02/04/2019 Office Visit Internal Medicine Marcela Pinto MD 200 [facility] [address] [phone] 06/01/2019 Imaging Radiology Health Maintenance Due Date [...] For more information, please contact: [place] [phone]
--- OUTSIDE RECORDS SUMMARY | 2023-06-18 03:42 | External Medical Summary | Summary of Care ---
Author Name Unknown Organization [place] [address] Care Team Providers Care Process Project Engineer Name Role Phone Alex Pinto MD Primary Care Provider [phone] Reason for Referral * Evaluate & Treat - Unlimited Visits (Within 10 days (routine)) Status Reason Specialty Diagnoses / Procedures Referred By Contact Referred To Contact Pending Review Specialty Services Required Physical Therapy Diagnoses Neck pain Pain in joint of right shoulder Alex Pinto MD 200 [place] [address] Reason for Visit * Reason Comments Pain pt reports neck, rig ht shoulder and wrist pain x one week Encounter Details Date Type Department Care Team Description 11/12/2018 Office Visit General Internal Medicine [facility] 200 [place] [address] Alex Pinto MD [address] [place] [address] [phone] Neck pain*; Pain in joint of right [...] Active DilTIAZem HCl ER Beads 360 MG NF55Xbsrjbpdfnz:HTN, goal below 130/80 TAKE 1 CAPSULE EVERY [...] Hypoxemia 10/08/2011 10/30/2015 Genetic Sleep Disorder Research Other*[id number] 07/25/2011 05/15/2016 Obesity, morbid (more than 1 [...] neoplasm of adrenal gland D35.00 COPD, moderate ([facility]) J44.9 Allergic rhinitis J30.9 Diverticulitis of colon K57.32 Nocturnal hypoxia G47.34 Sleep apnea, obstructive G47.33 Incisional hernia K43.2 ACEI/ARB contraindicated [id number] HTN, goal below 140/90 I10 Hyperlipidemia with target LDL less than 100 E78.5 Controlled substance agreement signed Z79.899 Type 2 diabetes mellitus with hemoglobin A1c goal of less than 7.5% ([facility]) E11.9 Hypercalcemia E83.52 Elevated plasma metanephrines R79.89 Lower GI bleed K92.2 Irritable bowel syndrome with constipation K58.1 Ischemic colitis ([facility]) K55.9 Body mass index (BMI) of 40.0 to 44.9 in adult ([facility]) Z68.41 Current Outpatient Medications Medication [...] 3 times daily 100 Strip 5 LANCETS [facility] Use as directed to test blood sugar once daily--Dx code 250.00 100 Each 3 The patient's medication list was reviewed and updated as needed. 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 Tobacco Use Smoking status: Never Smoker Smokeless [...] [address] [place] [address] [place] [address] [phone] 12/03/2018 Office Visit Gastroenterology Courtney Sprague CRNP 132 [facility] [place] [address] [phone] 12/21/2018 Nutrition Services Gastroenterology Nita Enriquez RDN [address] [place] [address] [place] [address] [phone] 02/04/2019 Office Visit Internal Medicine Alex Pinto MD 200 [facility], [place] [address] [phone] 06/01/2019 Imaging Radiology Scheduled Referrals Name Priority [...] For more information, please contact: [place] [phone]
--- OUTSIDE RECORDS SUMMARY | 2023-06-18 03:42 | External Medical Summary | Summary of Care ---
Author Name Unknown Organization [place] [address] Care Team Providers Care Benzene Worker Name Role Phone Marcela Pinto MD Primary Care Provider [phone] Encounter Details Date Type Department Care Team Description 10/20/2018 Telephone General Internal Medicine [facility] [address] [place] [address] Marcela Pinto MD 200 [facility] [place] [address] [phone] Allergies Active Allergy Reactions Severity Noted Date Comments Valsartan 07/10/2010 Enalapril 05/21/2006 Escitalopram Oxalate Nausea/vomiting 10/11/2009 Nauseated Iodinated Diagnostic Agents Nausea/vomiting 05/2010 IV Contrast Lisinopril 05/21/2006 Metoprolol Tartrate 11/18/2006 Made pulse low [place] Oil-Black Currant-Vit E 07/10/2010 Verapamil 03/21/2004 Bupropion [...] Active DilTIAZem HCl ER Beads 360 MG [id number]:HTN, goal below 130/80 TAKE 1 CAPSULE EVERY [...] Hypoxemia 10/08/2011 10/30/2015 Genetic Sleep Disorder Research Other*[id number] 07/25/2011 05/15/2016 Obesity, morbid (more than 1 [...] [address] [place] [address] [place] [id number] 12/03/2018 Office Visit Gastroenterology Courtney Sprague CRNP 132 [facility] [place] [address] 12/21/2018 Nutrition Services Gastroenterology Nita Enriquez RDN [address] [place] [address] [place] [address] 02/04/2019 Office Visit Internal Medicine Marcela Pinto MD 200 [facility] [place] [address] [phone] 06/01/2019 Imaging Radiology Health Maintenance Due Date [...] For more information, please contact: [place] [phone]
--- OUTSIDE RECORDS SUMMARY | 2023-06-18 03:42 | External Medical Summary | Summary of Care ---
Author Name Unknown Organization [place] [address] Care Team Providers Care Gizzard Skin Remover Name Role Phone Marcela Pinto MD Primary Care Provider [phone] Encounter Details Date Type Department Care Team Description 10/20/2018 Telephone General Internal Medicine [facility] [address] [place] [address] Marcela Pinto MD 200 [facility] [place] [address] [phone] Allergies Active Allergy Reactions Severity Noted Date Comments Valsartan 07/10/2010 Enalapril 05/21/2006 Escitalopram Oxalate Nausea/vomiting 10/11/2009 Nauseated Iodinated Diagnostic Agents Nausea/vomiting 05/2010 IV Contrast Lisinopril 05/21/2006 Metoprolol Tartrate 11/18/2006 Made pulse low [place] Oil-Black Currant-Vit E 07/10/2010 Verapamil 03/21/2004 Bupropion [...] Active DilTIAZem HCl ER Beads 360 MG UU29Dllhrzlbflh:HTN, goal below 130/80 TAKE 1 CAPSULE EVERY [...] Hypoxemia 10/08/2011 10/30/2015 Genetic Sleep Disorder Research Other*[id number] 07/25/2011 05/15/2016 Obesity, morbid (more than 1 [...] encounter Miscellaneous Notes * Telephone Encounter - Cindy Heath LPN - 10/23/2018 3:15 PM EST Pt rtc and below message given. Pt did say she hasn't watched her diet or taking her lasix daily. She has changed both problems and is doing better * Telephone Encounter - Renetta Gu, NICOL - 10/22/2018 1:28 PM EST Called, left message for patient to return call. Thank you * Telephone Encounter - Marcela Pinto MD - 10/22/2018 1:05 PM EST Noted. Worsening swealling could be as patient is not watching her diet and has missed taking her lasix daily. Advise on working on both as mentioned above, keep acute office visit with us if still have any ongoing issues early next week. ER if any acute issues. * Telephone Encounter - Nicolas Alicia, NICOL - 10/21/2018 9:12 AM EST Pt. Does [...] of the swelling * Telephone Encounter - GuRenetta mcdonald, NICOL - 10/20/2018 6:04 PM EST Called, [...] Team Description 2018 Office Visit Podiatry Chantel Moore, LEONARD [address] [place] [address] [place] [address] 12/03/2018 Office Visit Gastroenterology Courtney Sprague CRNP 132 [facility] [place] [address] 12/21/2018 Nutrition Services Gastroenterology Nita Enriquez, AKIKO [address] [place] [address] [place] [address] 02/04/2019 Office Visit Internal Medicine Marcela Pinto MD 200 [facility] [place] [address] [phone] 06/01/2019 Imaging Radiology Health Maintenance Due Date [...] For more information, please contact: [place] [phone]
--- OUTSIDE RECORDS SUMMARY | 2023-06-18 03:42 | External Medical Summary | Summary of Care ---
Author Name Unknown Organization [place] [address] Care Team Providers Care Inventory Worker Name Role Phone Marcela Pinto MD Primary Care Provider [phone] Encounter Details Date Type Department Care Team Description 10/20/2018 Telephone General Internal Medicine [facility] [address] [place] [address] Marcela Pinto MD 200 [facility] [place] [address] [phone] Allergies Active Allergy Reactions Severity Noted Date Comments Valsartan 07/10/2010 Enalapril 05/21/2006 Escitalopram Oxalate Nausea/vomiting 10/11/2009 Nauseated Iodinated Diagnostic Agents Nausea/vomiting 05/2010 IV Contrast Lisinopril 05/21/2006 Metoprolol Tartrate 11/18/2006 Made pulse low [place] Oil-Black Currant-Vit E 07/10/2010 Verapamil 03/21/2004 Bupropion [...] Active DilTIAZem HCl ER Beads 360 MG EL32Rlusqwssyhv:HTN, goal below 130/80 TAKE 1 CAPSULE EVERY [...] Hypoxemia 10/08/2011 10/30/2015 Genetic Sleep Disorder Research Other*[id number] 07/25/2011 05/15/2016 Obesity, morbid (more than 1 [...] Miscellaneous Notes * Telephone Encounter - Renetta Gu, NICOL - 10/22/2018 1:28 PM EST Called, left message for patient to return call. Thank you * Telephone Encounter - Marcela Pnito MD - 10/22/2018 1:05 PM EST Noted. Worsening swealling could be as patient is not watching her diet and has missed taking her lasix daily. Advise on working on both as mentioned above, keep acute office visit with us if still have any ongoing issues early next week. ER if any acute issues. * Telephone Encounter - Bar Aliciaothy Samanta, NICOL - 10/21/2018 9:12 AM EST Pt. [...] of the swelling * Telephone Encounter - Renetta Gu, NICOL - 10/20/2018 6:04 PM EST Called, [...] Office Visit Gastroenterology Courtney Sprague CRNP [address] [place] [address] [phone] 12/21/2018 Nutrition Services Gastroenterology Nita Enriquez, RDN [address] [place] [place] [address] 02/04/2019 Office Visit Internal Medicine Marcela Pinto MD 200 [facility], [place] [address] [phone] 06/01/2019 Imaging Radiology Health Maintenance Due Date [...] For more information, please contact: [place] [phone]
--- OUTSIDE RECORDS SUMMARY | 2023-06-18 03:42 | External Medical Summary | Summary of Care ---
Author Name Unknown Organization [place] [address] Care Team Providers Care Bulk Mail Technician Name Role Phone Marcela Pinto MD Primary Care Provider [phone] Encounter Details Date Type Department Care Team Description 10/20/2018 Telephone General Internal Medicine [facility] [address] [place] [address] Marcela Pinto MD 200 [facility] [place] [address] [phone] Allergies Active Allergy Reactions Severity Noted Date Comments Valsartan 07/10/2010 Enalapril 05/21/2006 Escitalopram Oxalate Nausea/vomiting 10/11/2009 Nauseated Iodinated Diagnostic Agents Nausea/vomiting 05/2010 IV Contrast Lisinopril 05/21/2006 Metoprolol Tartrate 11/18/2006 Made pulse low [place] Oil-Black Currant-Vit E 07/10/2010 Verapamil 03/21/2004 Bupropion [...] Active DilTIAZem HCl ER Beads 360 MG CE44Holcdygpuxq:HTN, goal below 130/80 TAKE 1 CAPSULE EVERY [...] Hypoxemia 10/08/2011 10/30/2015 Genetic Sleep Disorder Research Other*[id number] 07/25/2011 05/15/2016 Obesity, morbid (more than 1 [...] [address] [place] [place] [id number] 12/03/2018 Office Visit Gastroenterology Courtney Sprague CRNP 132 [facility] [place] [address] 12/21/2018 Nutrition Services Gastroenterology Nita Enriquez RDN [address] [place] [place] [address] 02/04/2019 Office Visit Internal Medicine Marcela Pinto MD 200 [place] [address] [phone] 06/01/2019 Imaging Radiology Health Maintenance Due Date [...] For more information, please contact: [place] [phone]
--- OUTSIDE RECORDS SUMMARY | 2023-06-18 03:42 | External Medical Summary | Summary of Care ---
Author Name Unknown Organization [place] [address] Care Team Providers Care Building Consultant Name Role Phone Marcela Pinot MD Primary Care Provider Reason for Visit * Reason Comments Weight Management Medical Management Encounter Details Date Type Department Care Team Description 10/20/2018 Nutrition Services Nutrition & Weight Management, [facility] [address] [place] [address] Nita Enriquez RDN [address] [place] [address] Type 2 diabetes mellitus with hemoglobin A1c goal of less than 7.5% ([facility])*; Body mass index (BMI) of 40.0 to 44.9 in adult ([facility]); Hyperlipidemia with target LDL less than 100; HTN, goal below 140/90 Allergies Active Allergy Reactions Severity Noted Date Comments Valsartan 07/10/2010 Enalapril 05/21/2006 Escitalopram Oxalate Nausea/vomiting 10/11/2009 Nauseated Iodinated Diagnostic Agents Nausea/vomiting 05/2010 IV Contrast Lisinopril 05/21/2006 Metoprolol Tartrate 11/18/2006 Made pulse low [place] Oil-Black Currant-Vit E 07/10/2010 Verapamil 03/21/2004 Bupropion [...] Active DilTIAZem HCl ER Beads 360 MG NO06Wylievchgky:HTN, goal below 130/80 TAKE 1 CAPSULE EVERY [...] Hypoxemia 10/08/2011 10/30/2015 Genetic Sleep Disorder Research Other*[id number] 07/25/2011 05/15/2016 Obesity, morbid (more than 1 [...] Start Travel End as of this encounter Last Filed Vital Signs Vital Sign Reading Time Taken Blood Pressure 138/66 10/20/2018 3:14 PM EST Pulse 76 10/20/2018 3:14 PM EST Temperature - - Respiratory Rate - - Oxygen Saturation - - Inhaled Oxygen Concentration - - Weight 111.2 kg (245 lb 1.6 oz) 019 3:14 PM EST Height - - Body Mass Index 40.79 10/20/2018 3:14 PM EST in this encounter Patient Instructions * Patient Instructions* Nita Enriquez RDN - 10/20/2018 3:58 PM EST 1) Patient to restart using manual food diaries to aid with slow continuous weight loss. Calorie goal of 1500 calories if patient is tracking calorie intake. 2) Patient to zone in on foods high in sodium (list given) 3) Continue lifestyle activity as tolerated. 4) Patient decrease fluid intake down to 70 ounces a day. (Patient to decrease decaf coffee by 2 cups) in this encounter Progress Notes * Nita Enriqeuz RDN - 10/20/2018 3:35 PM EST GI/NUTRITION FOLLOW UP [facility] Patient was identified at visit by name and date. PATIENT: Nina Harrington DATE: 10/20/2018 NUTRITION ASSESSMENT Diagnosis Code for referral for nutrition counseling: Type 2 diabetes mellitus with hemoglobin A1c goal of less than 7.5% ([facility]) [E11.9] - Primary Obesity, Class II, BMI 35.0-39.9, with comorbidity (see actual BMI) [E66.9] Hyperlipidemia with target LDL less than 100 [E78.5] HTN, goal below 140/90 [I10] SUBJECTIVE: Patient here today for rReturn visit nutrition counseling for weight management. Describes typical diet history/24 hr recall Breakfast: Sugar Free Instant Oatmeal Lunch: Salad with Chicken or Pasta Dinner: Sometimes a bowl of cereal Snacks: Drinks: About 64 ounces a day. Patient also drinks an additional 24-32 ounces of decaf coffee a day. Assessed patient's current fluid needs based off Adjusted Body Weight 164 lbs ( 74 kg) @ 25 ml/kg /bw fluid: 4493-5990 ml fluid a day (between 64-70 ounces a day) Progress on goals from the previous month: Patient stated that she got off track since last visit in April and has gained about 12 lbs since then. Patient appears that right lower leg is bigger than left lower leg. Nutrition Focused Edema Assessment Right Lower Extremity: +3 Edema Left Lower Extremity: +2 Edema CURRENT WT: 245 lbs Ht: 5'5" BMI: 41 LAST VISIT WT: 233.8 lbs WEIGHT CHANGES: Weight increased 11.2 lbs since last visit. MNT: Calorie Controlled Diet, 2 Gram Sodium Diet Patient is interested in the following treatment options for obesity: medical management. LABS: Component Latest Ref Rng & Units 08/24/2018 WBC 4.00 - 10.80 K/uL 10.09 RBC 3.85 - 5.15 M/uL 4.22 HGB 12.0 - 15.3 g/dL 11.2 (L) HCT 36.0 - 45.2 % 37.4 MCV 81.5 - 97.5 fL 88.6 MCH 27.0 - 34.0 pg 26.5 (L) MCHC 32.0 - 36.0 g/dL 29.9 (L) RDW 11.5 - 15.5 % 15.1 PLATELET COUNT 140 - 400 K/uL 366 MPV 6.6 - 11.1 fL 10.2 Patient currently on Iron as ordered by MD. Patient being followed by gastroenterology accordingly. PHYSICAL ACTIVITY: Light DIET RECALL/FOOD LOGS INDICATE: Large portions High calorie, high fat and/or high sugar selections Excessive sodium intake Excessive fluid intake NUTRITION DIAGNOSIS Food and nutrition related knowledge deficit in relation to calorie intake exceeding calorie expenditure as evidenced by diagnosis of Obesity. NUTRITION INTERVENTION INSTRUCTED PT ON THESE NUTRITION HANDOUTS: Foods High in Sodium PATIENT GOALS: 1) Patient to restart using manual food diaries to aid with slow continuous weight loss. Calorie goal of 1500 calories if patient is tracking calorie intake. 2) Patient to zone in on foods high in sodium (list given) 3) Continue lifestyle activity as tolerated. 4) Patient decrease fluid intake down to 70 ounces a day. (Patient to decrease decaf coffee by 2 cups) EXPECTED OUTCOMES: Demonstrated interest in learning. Expect compliance with diet recommendations. NUTRITION MONITORING Monitor weight loss progress and progress toward goals set at this visit. Monitor anemia and approaches re: same. Patient has a follow up appointment in gastroenterology in November. PLAN: Patient scheduled to return in 2 months; dietitian phone # given for future reference. 30 minute return visit Nita Enriquez RDN in this encounter Nursing Notes * Dionte Billy LPN - 10/20/2018 3:14 PM EST Pt verified identity by last name and date. Chief Complaint Patient presents with Weight Management Medical Management in this encounter Plan of Treatment Upcoming Encounters Date Type Specialty Care Team Description 2018 Office Visit Podiatry Chantel Moore DPM [address] [place] [address] 12/03/2018 Office Visit [facility] [address] [facility] [address] [phone] 12/21/2018 Nutrition Services Gastroenterology Nita Enriquez RDN [address] [place] [address] 02/04/2019 Office Visit Internal Medicine Marcela Pinto MD 200 [place] [address] [phone] 06/01/2019 Imaging Radiology Health Maintenance Due Date [...] Implants Not on fileas of this encounter Visit Diagnoses Diagnosis Type 2 diabetes mellitus with hemoglobin A1c goal of less than 7.5% (HCC)- Primary Body mass index (BMI) of 40.0 to 44.9 in adult (HCC) Hyperlipidemia with target LDL less than 100 Other and unspecified hyperlipidemia HTN, goal below 140/90 Unspecified essential hypertension in this encounter Advance Directives Patient has advance care planning documents on file. For more information, please contact: [place] [phone]
--- OUTSIDE RECORDS SUMMARY | 2023-06-18 03:42 | External Medical Summary | Summary of Care ---
Author Name Unknown Organization [place] [address] Care Team Providers Care Resident Engineer Name Role Phone Marcela Pinto MD Primary Care Provider [phone] Encounter Details Date Type Department Care Team Description 10/22/2018 Scan Encounter Unspecified Department <No scans attached> Allergies Active Allergy Reactions Severity Noted Date Comments Valsartan 07/10/2010 Enalapril 05/21/2006 Escitalopram Oxalate Nausea/vomiting 10/11/2009 Nauseated Iodinated Diagnostic Agents Nausea/vomiting 05/2010 IV Contrast Lisinopril 05/21/2006 Metoprolol Tartrate 11/18/2006 Made pulse low [place] Oil-Black Currant-Vit E 07/10/2010 Verapamil 03/21/2004 Bupropion [...] Active DilTIAZem HCl ER Beads 360 MG [id number]:HTN, goal below 130/80 TAKE 1 CAPSULE EVERY [...] Hypoxemia 10/08/2011 10/30/2015 Genetic Sleep Disorder Research Other*[id number] 07/25/2011 05/15/2016 Obesity, morbid (more than 1 [...] Start Travel End as of this encounter Plan of Treatment Upcoming Encounters Date Type Specialty Care Team Description 2018 Office Visit Podiatry Chantel Moore DPM [address] [place] [address] 12/03/2018 Office Visit Gastroenterology Courtney Sprague, NIECY [address] [facility] [place] [address] [phone] 12/21/2018 Nutrition Services Gastroenterology Nita Enriquez, RDN [address] [place] [id number] 02/04/2019 Office Visit Internal Medicine Marcela Pinto MD 200 [facility] [address] [phone] 06/01/2019 Imaging Radiology Health Maintenance Due Date [...] For more information, please contact: [place] [phone]
--- OUTSIDE RECORDS SUMMARY | 2023-06-18 03:42 | External Medical Summary | Summary of Care ---
Author Name Unknown Organization [place] [address] Care Team Providers Care Stationary Fireman Name Role Phone Alex Pinto MD Primary Care Provider [phone] Reason for Referral * Evaluate & Treat - Unlimited Visits (Within 10 days (routine)) Status Reason Specialty Diagnoses / Procedures Referred By Contact Referred To Contact Pending Review Specialty Services Required Physical Therapy Diagnoses Neck pain Pain in joint of right shoulder Alex Pinto MD 200 [place] [address] Reason for Visit * Reason Comments Pain pt reports neck, rig ht shoulder and wrist pain x one week Encounter Details Date Type Department Care Team Description 11/12/2018 Office Visit General Internal Medicine [facility] [address] [place] [address] Alex Pinto MD [address] [place] [address] [phone] Neck pain*; Pain in joint of right shoulder; Spasm of muscle Allergies Active Allergy Reactions Severity Noted Date Comments Valsartan 07/10/2010 Enalapril 05/21/2006 Escitalopram Oxalate Nausea/vomiting 10/11/2009 Nauseated Iodinated Diagnostic Agents Nausea/vomiting 05/2010 IV Contrast Lisinopril 05/21/2006 Metoprolol Tartrate 11/18/2006 Made pulse low [place] Oil-Black Currant-Vit E 07/10/2010 Verapamil 03/21/2004 Bupropion [...] Active DilTIAZem HCl ER Beads 360 MG TR70Zujluyafibn:HTN, goal below 130/80 TAKE 1 CAPSULE EVERY [...] colon 07/25/2011 COPD, moderate 07/19/2011 Overview: Dr Bahtti every 6 months Allergic rhinitis 07/19/2011 Benign [...] Hypoxemia 10/08/2011 10/30/2015 Genetic Sleep Disorder Research Other*[id number] 07/25/2011 05/15/2016 Obesity, morbid (more than 1 [...] adrenal gland D35.00 COPD, moderate ([facility]) J44.9 Allergic rhinitis J30.9 Diverticulitis of colon K57.32 Nocturnal hypoxia G47.34 Sleep apnea, obstructive G47.33 Incisional hernia K43.2 ACEI/ARB contraindicated [id number] HTN, goal below 140/90 I10 Hyperlipidemia with target LDL less than 100 E78.5 Controlled substance agreement signed Z79.899 Type 2 diabetes mellitus with hemoglobin A1c goal of less than 7.5% ([facility]) E11.9 Hypercalcemia E83.52 Elevated plasma metanephrines R79.89 Lower GI bleed K92.2 Irritable bowel syndrome with constipation K58.1 Ischemic colitis ([facility]) K55.9 Body mass index (BMI) of 40.0 to 44.9 in adult ([facility]) Z68.41 Current Outpatient Medications Medication [...] 3 times daily 100 Strip 5 LANCETS [facility] Use as directed to test blood sugar once daily--Dx code 250.00 100 Each 3 The patient's medication list was reviewed and updated as needed. 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.] For more information, please contact: [place] [phone]
--- OUTSIDE RECORDS SUMMARY | 2023-06-18 03:43 | External Medical Summary | Summary of Care ---
Author Name Unknown Organization [place] [address] Care Team Providers Care Professor Of Special Education Name Role Phone Marcela Pinto MD Primary Care Provider [phone] Reason for Visit * Reason Comments Scheduling patency capsule Encounter Details Date Type Department Care Team Description 08/13/2018 Telephone Gastroenterology, [facility] 132 [facility] [place] [address] Madeleine Coello MD [address] [place] [address] [phone] Scheduling (patency capsule) Allergies Active Allergy Reactions Severity Noted Date Comments Valsartan 07/10/2010 Enalapril 05/21/2006 Escitalopram Oxalate Nausea/vomiting 10/11/2009 Nauseated Iodinated Diagnostic Agents Nausea/vomiting 05/2010 IV Contrast Lisinopril 05/21/2006 Metoprolol Tartrate 11/18/2006 Made pulse low [place] Oil-Black Currant-Vit E 07/10/2010 Verapamil 03/21/2004 Bupropion [...] Active DilTIAZem HCl ER Beads 360 MG QE96Sncqcjknybi:HTN , goal below 130/80 TAKE 1 CAPSULE EVERY DAY 90 Cap 1 8 Active omeprazole (PRILOSEC) 20 MG CPDRIndications:Isc hemic colitis (HCC) TAKE 1 CAPSULE TWICE DAILY 180 Cap 1 8 Active Terazosin HCl 2 MG [...] A DAY 4 g 11 8 Active zafirlukast (ACCOLATE) 20 MG TabletIndications:A sthma with severity to be determined TAKE 1 TABLET BY MOUTH EVERY DAY 90 Tab 0 8 Active albuterol sulfate (PROVENTIL) (2.5 MG/3ML) 0.083% nebulizer solutionIndications :Asthma with severity to be determined,COPD, moderate (HCC) USE ONE NEBULIZER TREATMENT TWICE A DAY NEEDED FOR WORSENING ASTHMA. J45.909, J44.9 225 mL 1 8 Active atorvaSTATin (LIPITOR) 40 MG TabletIndications:H yperlipidemia with target LDL less than 100 TAKE 1 TABLET BY MOUTH EVERY DAY 30 Tab 11 8 Active RaNITidine HCl 300 MG Tablet TAKE 1/2 TABLET BY MOUTH AT BEDTIME. 30 Tab 2 8 Active PredniSONE (DELTASONE) 50 MG TabletIndications:A nemia, unspecified type Take 1 tablet by mouth 13 hr, 7 hr, and [address] scan. 3 Tab 0 8 Active dicyclomine (BENTYL) 20 MG TabletIndications:C hronic constipation TAKE 1 TABLET BY MOUTH EVERY DAY 90 Tab 0 8 08/16/20 18 Discontinued HYDROcodone-acetami nophen 5-325 mg per tab 5-325 MG per tabletIndications:G eneralized osteoarthritis Take 1 Tab by mouth every 6 hours as needed for Pain, Mild. 120 Tab 0 8 08/25/20 18 Discontinued as of this encounter Active Problems Problem [...] Hypoxemia 10/08/2011 10/30/2015 Genetic Sleep Disorder Research Other*[id number] 07/25/2011 05/15/2016 Obesity, morbid (more than 1 [...] Telephone Encounter - Radha Valencia RN - 09/02/2018 3:15 PM EST Defer VCE? * Telephone Encounter - Radha Valencia RN - 08/28/2018 12:[address] Coello- please advise. * Telephone Encounter - Radha Valencia RN - 08/25/2018 10:14 AM EST Impression IMPRESSION Patency capsule has passed. Mildly dilated air-filled loop of small bowel in the abdomen to the left of midline. * Telephone Encounter - Randa Oswald RN - 08/20/2018 2:08 PM EST This has been fully explained to the patient, who indicates understanding. Patient states she will repeat the x-ray Friday morning. Nursing staff--please follow up on results on 08/25/18. See other 08/13/18 telephone encounter. Patient scheduled for a CT scan on 08/25/[address] Coello--please advise with results. * Addendum Note - Madeleine Coello MD - 08/20/2018 2:01 PM EST Addended by: MADELEINE COELLO on: 08/20/2018 02:01 PM Modules accepted: Orders * Telephone Encounter - Madeleine Coello MD - 08/20/2018 1:59 PM EST Not sure this is in the ascending colon Think we should repeat the Xray tomorrow or Friday Madeleine Coello MD * Telephone Encounter - Randa Oswald RN - 08/20/2018 8:23 AM EST X-ray results completed. Dr. Coello--please advise. * Telephone Encounter - Randa Oswald RN - 08/13/2018 4:27 PM EDT Patient in for an office visit on 08/13/18. Per Dr. Coello, patient will need a patency capsule to see if it is okay to proceed with a video capsule endoscopy. Patient states she would like to take thepatency capsule on 08/18/18. Patency capsule lot# [id number] expires 03/04/19. Patient will follow up with abdominal x-ray as instructed. Patient had no further questions or concerns. Nursing staff--please follow up on 08/20/18 for x-ray results. in this encounter Plan of Treatment Upcoming Encounters Date Type Specialty Care Team Description 10/19/2018 Nutrition Services Gastroenterology Nita Enriquez, RDN [address] [place] [address] 2018 Office Visit Podiatry Chantel Moore, LEONARD [address] [place] [place] [address] 02/04/2019 Office Visit Internal Medicine Marcela Pinto MD 200 [place] [address] [phone] 06/01/2019 Imaging Radiology Health Maintenance Due Date [...] Implants Not on fileas of this encounter Procedures Procedure Name Priority Date/Time Associated Diagnosis Comments XR ABDOMEN 1 VIEW Routine 08/24/2018 11: 52 AM EST Anemia, unspecified type in this encounter Results * XR ABDOMEN 1 VIEW (08/24/2018 11:52 AM EST) Impressions Performed At IMPRESSION Patency capsule has passed.Mildly dilated air-filled loop of small bowel in the abdomen to the left of midline. [facility] Narrative Performed At EXAM XR ABDOMEN 1 VIEW - 08/24/2018 11:52 am HISTORY follow up of patency gi capsule with history of small bowel obstruction TECHNIQUE Supine views of the abdomen COMPARISON 08/19/2018. FINDINGS Abundant stool seen throughout the colon.Mildly dilated air-filled loop of small bowel in the mid abdomen to the left of midline measuring up to 29 mm in diameter.Patency capsule has passed. [facility] Procedure Note Interface, Rad In - 08/24/2018 2:01 PM EST EXAM XR ABDOMEN 1 VIEW - 08/24/2018 11:52 am HISTORY follow up of patency gi capsule with history of small bowel obstruction TECHNIQUE Supine views of the abdomen COMPARISON 08/19/2018. FINDINGS Abundant stool seen throughout the colon. Mildly dilated air-filled loopof small bowel in the mid abdomen to the left of midline measuring up to29 mm in diameter. Patency capsule has passed. IMPRESSION IMPRESSION Patency capsule has passed. Mildly dilated air-filled loop of small bowelin the abdomen to the left of midline. Performing Organization Address City/State/Zipcod e Phone Number [facility] in this encounter Visit Diagnoses Diagnosis Anemia, unspecified type- Primary in this encounter Advance Directives Patient has advance care planning documents on file. For more information, please contact: [place] [phone]
--- OUTSIDE RECORDS SUMMARY | 2023-06-18 03:43 | External Medical Summary | Summary of Care ---
Author Name Unknown Organization [place] [address] Care Team Providers Care Tube Trailer Filler Name Role Phone Marcela Pinto MD Primary Care Provider [phone] Reason for Visit * Reason Comments Scheduling patency capsule Encounter Details Date Type Department Care Team Description 08/13/2018 Telephone Gastroenterology, [facility] [address] [facility] [place] [address] Madeleine Coello MD [address] [place] [address] [phone] Scheduling (patency capsule) Allergies Active Allergy Reactions Severity Noted Date Comments Valsartan 07/10/2010 Enalapril 05/21/2006 Escitalopram Oxalate Nausea/vomiting 10/11/2009 Nauseated Iodinated Diagnostic Agents Nausea/vomiting 05/2010 IV Contrast Lisinopril 05/21/2006 Metoprolol Tartrate 11/18/2006 Made pulse low [place] Oil-Black Currant-Vit E 07/10/2010 Verapamil 03/21/2004 Bupropion [...] Active DilTIAZem HCl ER Beads 360 MG [id number]:HTN , goal below 130/80 TAKE 1 CAPSULE [...] Hypoxemia 10/08/2011 10/30/2015 Genetic Sleep Disorder Research Other*[id number] 07/25/2011 05/15/2016 Obesity, morbid (more than 1 [...] thepatency capsule on 08/18/18. Patency capsule lot# [id number] expires 03/04/19. Patient will follow up with abdominal x-ray as instructed. Patient had no further questions or concerns. Nursing staff--please follow up on 08/20/18 for x-ray results. in this encounter Plan of Treatment Upcoming Encounters Date Type Specialty Care Team Description 09/08/2018 Nutrition Services Gastroenterology Nita Enriquez, RDN [address] [place] [address] [place] [address] 2018 Office Visit Podiatry Chantel Moore DPM [address] [place] [address] [place] [address] 02/04/2019 Office Visit Internal Medicine Marcela Pinto MD [address] [facility], [place] [id number] 06/01/2019 Imaging Radiology Health Maintenance Due Date [...] the abdomen to the left of midline. [facility] Narrative Performed At EXAM XR ABDOMEN [...] 29 mm in diameter.Patency capsule has passed. [facility] Procedure Note Interface, Rad In - [...] Performing Organization Address City/State/Zipcod e Phone Number [facility] in this encounter Visit Diagnoses Diagnosis Anemia, unspecified type- Primary in this encounter Advance Directives Patient has advance care planning documents on file. For more information, please contact: [place] [phone]
--- OUTSIDE RECORDS SUMMARY | 2023-06-18 03:43 | External Medical Summary | Summary of Care ---
Author Name Unknown Organization [place] [address] Care Team Providers Care Hairspring Assembler Name Role Phone Marcela Pinto MD Primary Care Provider [phone] Reason for Visit * Reason Comments Medication Refill Encounter Details Date Type Department Care Team Description 09/28/2018 Refill General Internal Medicine [facility] [address] [place] [address] Marcela Pinto MD [address] [place] [address] [phone] GENERAL OSTEOARTHROSIS Allergies Active Allergy Reactions Severity Noted Date Comments Valsartan 07/10/2010 Enalapril 05/21/2006 Escitalopram Oxalate Nausea/vomiting 10/11/2009 Nauseated Iodinated Diagnostic Agents Nausea/vomiting 05/2010 IV Contrast Lisinopril 05/21/2006 Metoprolol Tartrate 11/18/2006 Made pulse low [place] Oil-Black Currant-Vit E 07/10/2010 Verapamil 03/21/2004 Bupropion [...] Active DilTIAZem HCl ER Beads 360 MG [id number]:HTN , goal below 130/80 TAKE 1 CAPSULE [...] EVERY DAY 90 Tab 0 8 Active Terazosin HCl 2 [...] EVERY DAY 90 Tab 0 8 Active HYDROcodone-acetami nophen 5-325 mg per tab 5-325 MG per tabletIndications:G eneralized osteoarthritis Take 1 Tab by mouth every 6 hours as needed for Pain, Mild. 120 Tab 0 8 Active HYDROcodone-acetami nophen 5-325 mg per tab 5-325 MG per tabletIndications:G eneralized osteoarthritis Take 1 Tab by mouth every 6 hours as needed for Pain, Mild. 120 Tab 0 8 09/29/20 18 Discontinued as of this encounter Active [...] Hypoxemia 10/08/2011 10/30/2015 Genetic Sleep Disorder Research Other*[id number] 07/25/2011 05/15/2016 Obesity, morbid (more than 1 [...] Telephone Encounter - Marcela Pinto MD - 09/29/2018 10:43 AM EST Signed Prescriptions: Disp Refills HYDROcodone-acetaminophen 5-325 mg per tab*120 Tab0 Sig: Take 1 Tab by mouth every 6 hours as needed for Pain, Mild.Authorizing Provider: MARCELA PINTO * Telephone Encounter - Doug Hayward [facility] - 09/29/2018 10:10 AM EST I have reviewed the patients controlled substance dispensing history in the Prescription Drug Monitoring Program in compliance with the [facility] regulations before prescribing a controlled substance. PDMP checked on 09/29/2018. Patient requesting: [place] 5/325, filled 08/25/18, for #120 for a 30 day supply. Other recent controlled medication fills: none Medication due for refill: 09/24/18 Last Tox Screen Result(s): Results for orders placed or performed in [...] Review. Please approve if appropriate. Thank You, Doug Umaña [facility] Staff Pharmacist Pharmacy Refill Call Center 09/29/2018, 10:11 AM * Telephone Encounter - Trav Oconnor, accounts receivable bookkeeper - 09/28/2018 4:00 PM EST Pending Prescriptions: Disp Refills HYDROcodone-acetaminophen 5-325 mg per ta*120 Tab0 Sig: Take 1 Tab by mouth every 6 hours as needed for Pain, Mild. Last Office Visit: 07/23/2018 Next Office Visit: 02/04/2019 Scheduled Provider(s): Marcela Pinto MD If no future appointments scheduled, and last appointment is greater than a year ago, please schedule patient for a follow-up appointment Last date the medication was ordered: 08/25/2018 Patient Phone Numbers Labs: Lab Results Component Value Date/Time CREAT 0.9 07/27/2018 11:32 AM POTASSIUM 4.6 07/27/2018 11:32 AM TSH 0.42 07/27/2018 11:32 AM LDLCALC 95 07/27/2018 11:32 AM LDLDIRECT 97 07/27/2018 11:32 AM ALT 9 (L) 07/27/2018 11:32 AM HGBA1C 6.8 (H) 07/27/2018 11:32 AM in this encounter Plan of Treatment Upcoming Encounters Date Type Specialty Care Team Description 10/19/2018 Nutrition Services Gastroenterology Nita Enriquez RDN [address] [place] [address] [place] [address] 2018 Office Visit Podiatry Chantel Moore DPM [address] [place] [address] [place] [address] 12/03/2018 Office Visit Gastroenterology Courtney Sprague CRNP [address] [place] [address] [phone] 02/04/2019 Office Visit Internal Medicine Marcela Pinto MD [address] [place] [address] [phone] 06/01/2019 Imaging Radiology Health Maintenance Due Date [...] fileas of this encounter Visit Diagnoses Diagnosis GENERAL OSTEOARTHROSIS Generalized osteoarthrosis, unspecified site in this encounter Advance Directives Patient has advance care planning documents on file. For more information, please contact: [place] [phone]
--- OUTSIDE RECORDS SUMMARY | 2023-06-18 03:43 | External Medical Summary | Summary of Care ---
Author Name Unknown Organization [place] [address] Care Team Providers Care School Library Media Specialist Name Role Phone Marcela Pinto MD Primary Care Provider [phone] Reason for Visit * Reason Comments eRx-Medication Refill Encounter Details Date Type Department Care Team Description 09/07/2018 Refill General Internal Medicine [facility] [address] [address] Marcela Pinto MD [address] [place] [address] [phone] Ischemic colitis (HCC) Allergies Active Allergy Reactions Severity Noted Date Comments Valsartan 07/10/2010 Enalapril 05/21/2006 Escitalopram Oxalate Nausea/vomiting 10/11/2009 Nauseated Iodinated Diagnostic Agents Nausea/vomiting 05/2010 IV Contrast Lisinopril 05/21/2006 Metoprolol Tartrate 11/18/2006 Made pulse low [place] Oil-Black Currant-Vit E 07/10/2010 Verapamil 03/21/2004 Bupropion [...] Active DilTIAZem HCl ER Beads 360 MG [id number]:HTN , goal below 130/80 TAKE 1 CAPSULE [...] Pain, Mild. 120 Tab 0 8 Active Terazosin HCl 2 MG Capsule TAKE ONE CAPSULE BY MOUTH EVERY DAY 90 Cap 1 8 Active omeprazole (PRILOSEC) 20 MG CPDRIndications:Isc hemic colitis (HCC) TAKE 1 CAPSULE TWICE DAILY 180 Cap 1 8 Active omeprazole (PRILOSEC) 20 MG CPDRIndications:Isc hemic colitis (HCC) TAKE 1 CAPSULE TWICE DAILY 180 Cap 1 8 09/07/20 18 Discontinued Terazosin HCl 2 MG Capsule TAKE ONE CAPSULE BY MOUTH EVERY DAY 90 Cap 1 8 09/07/20 18 Discontinued as of this encounter Active [...] Hypoxemia 10/08/2011 10/30/2015 Genetic Sleep Disorder Research Other*[id number] 07/25/2011 05/15/2016 Obesity, morbid (more than 1 [...] Telephone Encounter - Briseyda Barber MD - 09/07/2018 12:51 PM EST Signed Prescriptions: Disp Refills Terazosin HCl 2 MG Capsule 90 Cap 1 Sig: TAKE ONE CAPSULE BY MOUTH EVERY DAY Authorizing Provider: BRISEYDA BARBER omeprazole (PRILOSEC) 20 MG CPDR 180 Cap1 Sig: TAKE 1 CAPSULE TWICE DAILY Authorizing Provider: BRISEYDA BARBER * Telephone Encounter - Joanna Ontiveros LPN - 09/07/2018 10:35 AM EST Pending Prescriptions: Disp Refills Terazosin HCl 2 MG Capsule [Pharmacy Med *90 Cap 1 Sig: TAKE ONE CAPSULE BY MOUTH EVERY DAY omeprazole (PRILOSEC) 20 MG CPDR [Pharmac*180 Cap1 Sig: TAKE 1 CAPSULE TWICE DAILY * Telephone Encounter - Joanna Ontiveros LPN - 09/07/2018 10:34 AM EST Pending Prescriptions: Disp Refills Terazosin HCl 2 MG Capsule [Pharmacy Med *90 Cap 1 Sig: TAKE ONE CAPSULE BY MOUTH EVERY DAY omeprazole (PRILOSEC) 20 MG CPDR [Pharmac*180 Cap1 Sig: TAKE 1 CAPSULE TWICE DAILY Last Office Visit: 07/23/2018 Next Office Visit: 02/04/2019 Scheduled Provider(s): Marcela Pinto MD Last date the medication was ordered: 05/13/18 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 COPD, moderate ([facility]) J44.9 Allergic rhinitis J30.9 Diverticulitis of colon K57.32 Nocturnal hypoxia G47.34 Sleep apnea, obstructive G47.33 Incisional hernia K43.2 ACEI/ARB contraindicated BA0851 HTN, goal below 140/90 I10 Hyperlipidemia with target LDL less than 100 E78.5 Controlled substance agreement signed Z79.899 Type 2 diabetes mellitus with hemoglobin A1c goal of less than 7.5% ([facility]) E11.9 Hypercalcemia E83.52 Elevated plasma metanephrines R79.89 Lower GI bleed K92.2 Irritable bowel syndrome with constipation K58.1 Ischemic colitis ([facility]) K55.9 Body mass index (BMI) of 40.0 to 44.9 in adult ([facility]) Z68.41 Labs: CREATININE, RD URINE(mg/dL) Jessica Dt/Tm [...] FINAL 01/14/18 12:03P 01/14/18 6.2 FINAL HEMOGLOBIN, [id number] LAB(%) Jessica Dt/Tm Resulted Value Status 11/20/17 11/21/17 6.3 FINAL in this encounter Plan of Treatment Upcoming Encounters Date Type Specialty Care Team Description 10/19/2018 Nutrition Services Gastroenterology Nita Enriquez, AKIKO [address] [place] [address] 2018 Office Visit Podiatry Chantel Moore DPM [address] [place] [address] [place] [address] [phone] 02/04/2019 Office Visit Internal Medicine Marcela Pinto MD [address] [place] [address] [phone] 06/01/2019 Imaging Radiology Health Maintenance Due Date [...] fileas of this encounter Visit Diagnoses Diagnosis Ischemic colitis (HCC) Unspecified vascular insufficiency of intestine in this encounter Advance Directives Patient has advance care planning documents on file. For more information, please contact: [place] [phone]
--- OUTSIDE RECORDS SUMMARY | 2023-06-18 03:43 | External Medical Summary | Summary of Care ---
Author Name Unknown Organization [place] [address] Care Team Providers Care Arc Trimmer Name Role Phone Marcela Pinto MD Primary Care Provider [phone] Reason for Visit * Reason Comments Follow Up drfc Encounter Details Date Type Department Care Team Description 08/31/2018 Office Visit Podiatry [facility] [address] [facility] [address] Chantel Moore DPM [address] [place] [address] [facility] [place] [address] Type 2 diabetes mellitus with hemoglobin A1c goal of less than 7.5% ([facility])*; Onychomycosis Allergies Active Allergy Reactions Severity Noted Date Comments Valsartan 07/10/2010 Enalapril 05/21/2006 Escitalopram Oxalate Nausea/vomiting 10/11/2009 Nauseated Iodinated Diagnostic Agents Nausea/vomiting 05/2010 IV Contrast Lisinopril 05/21/2006 Metoprolol Tartrate 11/18/2006 Made pulse low [place] Oil-Black Currant-Vit E 07/10/2010 Verapamil 03/21/2004 Bupropion [...] Active DilTIAZem HCl ER Beads 360 MG [id number]:HTN, goal below 130/80 TAKE 1 CAPSULE EVERY DAY 90 Cap 1 05/01/2018 Active omeprazole (PRILOSEC) 20 MG CPDRIndications:Isch emic colitis (HCC) TAKE 1 CAPSULE TWICE DAILY 180 Cap 1 05/13/2018 Active Terazosin HCl 2 MG Capsule TAKE ONE CAPSULE BY MOUTH EVERY DAY 90 Cap 1 05/15/2018 Active furosemide (LASIX) 40 MG TabletIndications:Es sential hypertension with goal blood pressure less than 130/80 TAKE 1 TABLET BY MOUTH DAILY NEEDED FOR EDEMA 30 Tab 11 05/25/2018 Active COMBIVENT RESPIMAT 20-100 MCG/ACT InhalerIndications:A sthma with severity to be determined,COPD, moderate (HCC) TAKE 1 PUFF BY MOUTH 4 TIMES A DAY 4 g 11 07/02/2018 Active zafirlukast (ACCOLATE) 20 MG TabletIndications:As thma with severity to be determined TAKE 1 TABLET BY MOUTH EVERY DAY 90 Tab 0 07/14/2018 Active albuterol sulfate (PROVENTIL) (2.5 MG/3ML) 0.083% nebulizer solutionIndications: Asthma with severity to be determined,COPD, moderate (HCC) USE ONE NEBULIZER TREATMENT TWICE A DAY NEEDED FOR WORSENING ASTHMA. J45.909, J44.9 225 mL 1 07/17/2018 Active atorvaSTATin (LIPITOR) 40 MG TabletIndications:Hy perlipidemia with target LDL less than 100 TAKE 1 TABLET BY MOUTH EVERY DAY 30 Tab 11 08/10/2018 Active RaNITidine HCl 300 MG Tablet TAKE [...] EVERY DAY 90 Tab 0 08/17/2018 Active HYDROcodone-acetamin ophen 5-325 mg per tab 5-325 MG per tabletIndications:Ge neralized osteoarthritis Take 1 Tab by mouth every 6 hours as needed for Pain, Mild. 120 Tab 0 08/25/2018 Active as of this encounter Active Problems [...] Hypoxemia 10/08/2011 10/30/2015 Genetic Sleep Disorder Research Other*[id number] 07/25/2011 05/15/2016 Obesity, morbid (more than 1 [...] Start Travel End as of this encounter Progress Notes * Chantel Moore DPM - 08/31/2018 11:26 AM EST Podiatry Established Patient Note [facility] Name: Nina Harrington : 1940 Date: 08/31/2018 CHIEF COMPLAINT: Diabetic Nail Care HISTORY OF PRESENT ILLNESS: This patient is a 77 year old female who presents today for [...] COLONOSCOPY, DIAGNOSTIC (RECTUM) 05/29/2016 poor prep, diverticulosis/inpt [facility] COLONOSCOPY, DIAGNOSTIC (RECTUM) 06/05/2017 diverticulosis, repeat 3 yrs/[facility] COLONOSCOPY, DIAGNOSTIC (RECTUM) 02/28/2018 adenomatous polyps, diverticulosis, repeat 3 yrs / [facility] COLONOSCOPY, W/BIOPSY 03/20/12 hyperplastic polyps rpt 3 years. EGD, FLEXIBLE, DIAGNOSTIC 04/29/2014 normal/inpt [facility] EGD, FLEXIBLE, DIAGNOSTIC 05/29/2016 fundic submucosal mass/inpt [facility] EGD, FLEXIBLE,W/ENDOSCOPIC US 11/08/2016 inflammatory changes, stomach lesion, repeat EUS 1.5 yrs/[facility] EGD, FLEXIBLE,W/ENDOSCOPIC US 05/01/2018 stromal cell (smooth muscle) neoplasm, CBD dilation, repeat 2 yrs (needs OV prior)/[facility] INCISIONAL HERNIA REPAIR, LAP, REDUCIBLE 09/29/12 Repair of incarcerated supraumbilical (incisional) hernia with [facility] mesh 09/29/12 LIGATE/CUT OVIDUCT(S) REMOVAL OF TONSILS, AGE 12+ age 11 REMOVE GALLBLADDER 1960 SIGMOIDOSCOPY, DIAGNOSTIC 04/29/2014 stool in rectum/inpt [facility] SMALL BOWEL ENDOSCOPY, REMOVE FOREIGN [...] Disability 1998 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 120 Tab 0 dicyclomine (BENTYL) 20 MG Tablet TAKE 1 TABLET BY MOUTH EVERY DAY 90 Tab 0 PredniSONE (DELTASONE) 50 MG Tablet Take 1 tablet by mouth 13 hr, 7 hr, and [address] scan. 3 Tab 0 atorvaSTATin (LIPITOR) 40 MG Tablet TAKE 1 TABLET BY MOUTH EVERY DAY 30 Tab 11 RaNITidine HCl 300 MG Tablet TAKE 1/2 TABLET BY MOUTH AT BEDTIME. 30 Tab 2 albuterol sulfate (PROVENTIL) (2.5 MG/3ML) 0.083% nebulizer solution USE ONE NEBULIZER TREATMENT TWICE A DAY NEEDED FOR WORSENING ASTHMA. J45.909, J44.9 225 mL 1 zafirlukast (ACCOLATE) 20 MG Tablet TAKE 1 TABLET BY MOUTH EVERY DAY 90 Tab 0 COMBIVENT RESPIMAT 20-100 MCG/ACT Inhaler TAKE 1 PUFF BY MOUTH 4 TIMES A DAY 4 g 11 furosemide (LASIX) 40 MG Tablet TAKE 1 TABLET BY MOUTH DAILY NEEDED FOR EDEMA 30 Tab 11 Terazosin HCl 2 MG Capsule TAKE ONE CAPSULE BY MOUTH EVERY DAY 90 Cap 1 omeprazole (PRILOSEC) 20 MG CPDR TAKE 1 CAPSULE TWICE DAILY 180 Cap 1 DilTIAZem HCl ER Beads 360 MG CP24 [...] Contrast Lisinopril Metoprolol Tartrate Made pulse low [place] Oil-Black Currant-Vit E Verapamil Wellbutrin [Bupropion Hcl] [...] any problems or questions. Chantel Moore DPM in this encounter Nursing Notes * Alize Young, WELLNESS COORDINATOR - 08/31/2018 10:29 AM EST Pt presents for routine foot care, no pain in feet. BSG was 125 this morning. nredin in this encounter Plan of Treatment Upcoming Encounters Date Type Specialty Care Team Description 09/08/2018 Nutrition Services Gastroenterology Nita Enriquez, RDN [address] [place] [address] [place] [address] 2018 Office Visit Podiatry Chantel Moore DPM [address] [place] [address] [place] [address] 02/04/2019 Office Visit Internal Medicine Marcela Pinto MD [address] [place] [address] [phone] 06/01/2019 Imaging Radiology Health Maintenance Due Date [...] goal of less than 7.5% ([facility])- Primary Onychomycosis Dermatophytosis of nail in this encounter Advance Directives Patient has advance care planning documents on file. For more information, please contact: [place] [phone]
--- OUTSIDE RECORDS SUMMARY | 2023-06-18 03:43 | External Medical Summary | Summary of Care ---
Author Name Unknown Organization [place] [address] Care Team Providers Care Laborer Demolition Name Role Phone Marcela Pinto MD Primary Care Provider [phone] Reason for Visit * Reason Comments Scheduling patency capsule Encounter Details Date Type Department Care Team Description 08/13/2018 Telephone Gastroenterology, [facility] [address] [facility] [place] [address] Madeleine Coello MD [address] [place] [address] [phone] Scheduling (patency capsule) Allergies Active Allergy Reactions Severity Noted Date Comments Valsartan 07/10/2010 Enalapril 05/21/2006 Escitalopram Oxalate Nausea/vomiting 10/11/2009 Nauseated Iodinated Diagnostic Agents Nausea/vomiting 05/2010 IV Contrast Lisinopril 05/21/2006 Metoprolol Tartrate 11/18/2006 Made pulse low [place] Oil-Black Currant-Vit E 07/10/2010 Verapamil 03/21/2004 Bupropion [...] Active DilTIAZem HCl ER Beads 360 MG [id number]:HTN , goal below 130/80 TAKE 1 CAPSULE [...] CT scan. 3 Tab 0 8 Active omeprazole (PRILOSEC) 20 MG CPDRIndications:Isc hemic colitis (HCC) TAKE 1 CAPSULE TWICE DAILY 180 Cap 1 8 09/07/20 18 Discontinued Terazosin HCl 2 MG Capsule TAKE ONE CAPSULE BY MOUTH EVERY DAY 90 Cap 1 8 09/07/20 18 Discontinued dicyclomine (BENTYL) 20 MG TabletIndications:C hronic constipation TAKE 1 TABLET BY MOUTH EVERY DAY 90 Tab 0 8 08/16/20 18 Discontinued HYDROcodone-acetami nophen 5-325 mg per tab 5-325 MG per tabletIndications:G eneralized osteoarthritis Take 1 Tab by mouth every 6 hours as needed for Pain, Mild. 120 Tab 0 8 08/25/20 18 Discontinued atorvaSTATin (LIPITOR) 40 MG TabletIndications:H yperlipidemia with target LDL less than 100 TAKE 1 TABLET BY MOUTH EVERY DAY 30 Tab 11 8 09/07/20 18 Discontinued as of this [...] Hypoxemia 10/08/2011 10/30/2015 Genetic Sleep Disorder Research Other*[id number] 07/25/2011 05/15/2016 Obesity, morbid (more than 1 [...] Telephone Encounter - Radha Valencia RN - 09/10/2018 10:[address] Nelson- are you able to confirm if we will defer capsule? * Telephone Encounter - Radha Valencia RN [...] thepatency capsule on 08/18/18. Patency capsule lot# [id number] expires 03/04/19. Patient will follow up with abdominal x-ray as instructed. Patient had no further questions or concerns. Nursing staff--please follow up on 08/20/18 for x-ray results. in this encounter Plan of Treatment Upcoming Encounters Date Type Specialty Care Team Description 10/19/2018 Nutrition Services Gastroenterology Nita Enriquez, RDN [address] [place] [address] [place] [address] 2018 Office Visit Podiatry Chantel Moore, JOHNM [address] [place] [address] [place] [address] 02/04/2019 Office Visit Internal Medicine Marcela Pinto MD [address] [place] [address] [phone] 06/01/2019 Imaging Radiology Health Maintenance Due Date [...] the abdomen to the left of midline. [facility] Narrative Performed At EXAM XR ABDOMEN [...] 29 mm in diameter.Patency capsule has passed. [facility] Procedure Note Interface, Rad In - [...] Performing Organization Address City/State/Zipcod e Phone Number [facility] in this encounter Visit Diagnoses Diagnosis Anemia, unspecified type- Primary in this encounter Advance Directives Patient has advance care planning documents on file. For more information, please contact: [facility] [phone]
--- OUTSIDE RECORDS SUMMARY | 2023-06-18 03:43 | External Medical Summary | Summary of Care ---
Author Name Unknown Organization [place] [address] Care Team Providers Care Electric Serviceman Name Role Phone Marcela Pinto MD Primary Care Provider [phone] Reason for Visit * Reason Comments eRx-Medication Refill Encounter Details Date Type Department Care Team Description 09/23/2018 Refill General Internal Medicine [facility] [address] [place] [address] Marcela Pinto MD [address] [place] [address] [phone] Asthma with severity to be determined Allergies Active Allergy Reactions Severity Noted Date Comments Valsartan 07/10/2010 Enalapril 05/21/2006 Escitalopram Oxalate Nausea/vomiting 10/11/2009 Nauseated Iodinated Diagnostic Agents Nausea/vomiting 05/2010 IV Contrast Lisinopril 05/21/2006 Metoprolol Tartrate 11/18/2006 Made pulse low [place] Oil-Black Currant-Vit E 07/10/2010 Verapamil 03/21/2004 [...] Active DilTIAZem HCl ER Beads 360 MG UB23Pwclhgrtbpp:HTN , goal below 130/80 TAKE 1 CAPSULE [...] EVERY DAY 90 Tab 0 8 Active zafirlukast (ACCOLATE) 20 MG TabletIndications:A sthma with severity to be determined TAKE 1 TABLET BY MOUTH EVERY DAY 90 Tab 0 8 09/23/20 18 Discontinued as of this encounter Active [...] Hypoxemia 10/08/2011 10/30/2015 Genetic Sleep Disorder Research Other*[id number] 07/25/2011 05/15/2016 Obesity, morbid (more than 1 [...] Telephone Encounter - Marcela Pinto MD - 09/24/2018 8:12 AM EST Signed Prescriptions: Disp Refills zafirlukast (ACCOLATE) 20 MG Tablet 90 Tab 0 Sig: TAKE 1 TABLET BY MOUTH EVERY DAY Authorizing Provider: MARCELA PINTO * Telephone Encounter - Joanna Ontiveros LPN - 09/23/2018 12:41 PM EST Pending Prescriptions: Disp Refills zafirlukast (ACCOLATE) 20 MG Tablet [Phar*90 Tab 0 Sig: TAKE 1 TABLET BY MOUTH EVERY DAY * Telephone Encounter - Joanna Ontiveros LPN - 09/23/2018 12:41 PM EST Pending Prescriptions: Disp Refills zafirlukast (ACCOLATE) 20 MG Tablet [Phar*90 Tab 0 Sig: TAKE 1 TABLET BY MOUTH EVERY DAY Last Office Visit: 07/23/2018 Next Office Visit: 02/04/2019 Scheduled Provider(s): Marcela Pinto MD Last date the medication was ordered: 07/14/18 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 COPD, moderate ([facility]) J44.9 Allergic rhinitis J30.9 Diverticulitis of colon K57.32 Nocturnal hypoxia G47.34 Sleep apnea, obstructive G47.33 Incisional hernia K43.2 ACEI/ARB contraindicated [id number] HTN, goal below 140/90 I10 Hyperlipidemia with target LDL less than 100 E78.5 Controlled substance agreement signed Z79.899 Type 2 diabetes mellitus with hemoglobin A1c goal of less than 7.5% ([facility]) E11.9 Hypercalcemia E83.52 Elevated plasma metanephrines R79.89 Lower GI bleed K92.2 Irritable bowel syndrome with constipation K58.1 Ischemic colitis ([facility]) K55.9 Body mass index (BMI) of 40.0 to 44.9 in adult ([facility]) Z68.41 Labs: CREATININE, RD URINE(mg/dL) Jessica Dt/Tm Resulted Value Status 07/27/18 11:32A 07/28/18 90 FINAL POTASSIUM(mmol/L) Jessica Dt/Tm Resulted Value Status 07/27/18 11:32A 07/28/18 4.6 FINAL TSH(uIU/mL) Jessica Dt/Tm Resulted Value Status 07/27/18 11:32A 07/28/18 0.42 FINAL LDL (CALCULATED)(mg/dL) Jessica Dt/Tm Resulted Value Status 07/27/18 11:32A 10/16/18 95 FINAL LDL (DIRECT MEASURE)(mg/dL) Jessica Dt/Tm Resulted Value Status 07/27/18 11:32A 07/28/18 97 FINAL ALT(U/L) Jessica Dt/Tm Resulted Value Status 07/27/18 11:32A 07/28/18 9* FINAL Hemoglobin AIC Results: HEMOGLOBIN, A1C(%) Jessica Dt/Tm Resulted Value Status 07/27/18 11:32A 07/28/18 6.8* FINAL 01/14/18 12:03P 01/14/18 6.2 FINAL HEMOGLOBIN, [id number] LAB(%) Jessica Dt/Tm Resulted Value Status 11/20/17 [...] Courtney Sprague CRNP [address] [facility] [place] [address] 02/04/2019 Office Visit Internal Medicine Marcela Pinto MD 200 [facility] [place] [address] [phone] 06/01/2019 Imaging Radiology Health Maintenance Due Date [...] fileas of this encounter Visit Diagnoses Diagnosis Asthma with severity to be determined in this encounter Advance Directives Patient has advance care planning documents on file. For more information, please contact: [place] [phone]
--- OUTSIDE RECORDS SUMMARY | 2023-06-18 03:43 | External Medical Summary | Summary of Care ---
Author Name Unknown Organization [place] [address] Care Team Providers Care Creative Services Manager Name Role Phone Marcela Pinto MD Primary Care Provider [phone] Reason for Visit * Reason Comments Medication Refill Encounter Details Date Type Department Care Team Description 10/05/2018 Refill General Internal Medicine [facility] [address] [place] [address] Marcela Pinto MD [address] [place] [address] [phone] Asthma with severity to be determined Allergies Active Allergy Reactions Severity Noted Date Comments Valsartan 07/10/2010 Enalapril 05/21/2006 Escitalopram Oxalate Nausea/vomiting 10/11/2009 Nauseated Iodinated Diagnostic Agents Nausea/vomiting 05/2010 IV Contrast Lisinopril 05/21/2006 Metoprolol Tartrate 11/18/2006 Made pulse low [place] Oil-Black Currant-Vit E 07/10/2010 Verapamil 03/21/2004 Bupropion [...] Active DilTIAZem HCl ER Beads 360 MG RP75Tzihbjdcxcx:HTN , goal below 130/80 TAKE 1 CAPSULE [...] mouth daily. 90 Tab 3 8 Active HYDROcodone-acetami nophen 5-325 mg per tab 5-325 MG per tabletIndications:G eneralized osteoarthritis Take 1 Tab by mouth every 6 hours as needed for Pain, Mild. 120 Tab 0 8 Active zafirlukast (ACCOLATE) 20 MG TabletIndications:A sthma with severity to be determined Take 1 Tab by mouth daily. 90 Tab 0 8 Active zafirlukast (ACCOLATE) 20 MG TabletIndications:A sthma with severity to be determined TAKE 1 TABLET BY MOUTH EVERY DAY 90 Tab 0 8 10/05/20 18 Discontinued as of this encounter Active [...] Hypoxemia 10/08/2011 10/30/2015 Genetic Sleep Disorder Research Other*[id number] 07/25/2011 05/15/2016 Obesity, morbid (more than 1 [...] Telephone Encounter - Marcela Pinto MD - 10/07/2018 9:20 AM EST Signed Prescriptions: Disp Refills zafirlukast (ACCOLATE) 20 MG Tablet 90 Tab 0 Sig: Take 1 Tab by mouth daily. Authorizing Provider: MARCELA PINTO * Telephone Encounter - Mohinder Landry RN - 10/05/2018 4:01 PM EST Pending Prescriptions: Disp Refills zafirlukast (ACCOLATE) 20 MG Tablet 90 Tab 0 Sig: Take 1 Tab by mouth daily. * Telephone Encounter - Elenita Dallas OSA - 10/05/2018 3:20 PM EST REQUESTING 90 DAY SUPPLY Pending Prescriptions: Disp Refills zafirlukast (ACCOLATE) 20 MG Tablet 90 Tab 0 Sig: Take 1 Tab by mouth daily. Last Office Visit: 07/23/2018 Next Office Visit: 02/04/2019 Scheduled Provider(s): Marcela Pinto MD If no future appointments scheduled, and last appointment is greater than a year ago, please schedule patient for a follow-up appointment Last date the medication was ordered: 09/24/2018 Patient Phone Numbers Labs: Lab Results Component [...] [id number] 2018 Office Visit Podiatry Chantel Moore, [place] [address] [place] [place] [address] [phone] 12/03/2018 Office Visit Gastroenterology Courtney Sprague CRNP [address] [facility] [place] [address] [phone] 02/04/2019 Office Visit Internal Medicine Marcela Pinto MD 200 [place] [address] 06/01/2019 Imaging Radiology Health Maintenance Due Date [...] For more information, please contact: [place] [phone]
--- OUTSIDE RECORDS SUMMARY | 2023-06-18 03:43 | External Medical Summary | Summary of Care ---
Author Name Unknown Organization [place] [address] Care Team Providers Care Route Driver Coin Machines Name Role Phone Marcela Pinto MD Primary Care Provider [phone] Reason for Visit * Reason Comments Scheduling patency capsule Encounter Details Date Type Department Care Team Description 08/13/2018 Telephone Gastroenterology, [facility] [address] [facility] [place] [address] Madeleine Coello MD [address] [place] [address] [phone] Scheduling (patency capsule) Allergies Active Allergy Reactions Severity Noted Date Comments Valsartan 07/10/2010 Enalapril 05/21/2006 Escitalopram Oxalate Nausea/vomiting 10/11/2009 Nauseated Iodinated Diagnostic Agents Nausea/vomiting 05/2010 IV Contrast Lisinopril 05/21/2006 Metoprolol Tartrate 11/18/2006 Made pulse low [place] Oil-Black Currant-Vit E 07/10/2010 Verapamil 03/21/2004 Bupropion [...] Active DilTIAZem HCl ER Beads 360 MG PI87Aeyogilbcby:HTN , goal below 130/80 TAKE 1 CAPSULE [...] Hypoxemia 10/08/2011 10/30/2015 Genetic Sleep Disorder Research Other*[id number] 07/25/2011 05/15/2016 Obesity, morbid (more than 1 [...] Miscellaneous Notes * Telephone Encounter - Cristiane Rapp, JORDAN - 09/11/2018 1:19 PM EST Scheduled to see Courtney on 12/03 * Telephone Encounter - Zulay Nelson DO - 09/10/2018 3:06 PM EST Lets hold on the VCE, lets have her see an KNITTING MACHINE OPERATOR [employer]OMATIC in about 3 months. * Telephone Encounter - Radha Valencia RN [...] thepatency capsule on 08/18/18. Patency capsule lot# [id number] expires 03/04/19. Patient will follow up with [...] Office Visit Gastroenterology Courtney Sprague CRNP [address] [facility] [place] [address] [phone] 02/04/2019 Office Visit Internal Medicine Marcela Pinto MD 200 [facility] [place] [address] [phone] 06/01/2019 Imaging Radiology Health Maintenance Due Date [...] the abdomen to the left of midline. [facility] Narrative Performed At EXAM XR ABDOMEN [...] 29 mm in diameter.Patency capsule has passed. [facility] Procedure Note Interface, Rad In - [...] Performing Organization Address City/State/Zipcod e Phone Number [facility] in this encounter Visit Diagnoses Diagnosis Anemia, unspecified type- Primary in this encounter Advance Directives Patient has advance care planning documents on file. For more information, please contact: [place] [phone]
--- OUTSIDE RECORDS SUMMARY | 2023-06-18 03:43 | External Medical Summary | Summary of Care ---
Author Name Unknown Organization [place] [address] Care Team Providers Care Box Bender Name Role Phone Marcela Pinto MD Primary Care Provider [phone] Reason for Visit * Reason Comments Medication Refill Encounter Details Date Type Department Care Team Description 09/07/2018 Refill General Internal Medicine [facility] [address] [address] Marcela Pinto MD [address] [place] [address] [phone] Hyperlipidemia with target LDL less than 100 Allergies Active Allergy Reactions Severity Noted Date Comments Valsartan 07/10/2010 Enalapril 05/21/2006 Escitalopram Oxalate Nausea/vomiting 10/11/2009 Nauseated Iodinated Diagnostic Agents Nausea/vomiting 05/2010 IV Contrast Lisinopril 05/21/2006 Metoprolol Tartrate 11/18/2006 Made pulse low [place] Oil-Black Currant-Vit E 07/10/2010 Verapamil 03/21/2004 Bupropion [...] Active DilTIAZem HCl ER Beads 360 MG [id number]:HTN , goal below 130/80 TAKE 1 CAPSULE [...] mouth daily. 90 Tab 3 8 Active atorvaSTATin (LIPITOR) 40 MG TabletIndications:H [...] Hypoxemia 10/08/2011 10/30/2015 Genetic Sleep Disorder Research Other*[id number] 07/25/2011 05/15/2016 Obesity, morbid (more than 1 [...] Encounter - Briseyda Barber MD - 09/07/2018 3:24 PM EST Signed Prescriptions: Disp Refills atorvaSTATin (LIPITOR) 40 MG Tablet 90 Tab 3 Sig: Take 1 Tab by mouth daily. Authorizing Provider: BRISEYDA BARBER * Telephone Encounter - Janny Brandon LPN - 09/07/2018 1:06 PM EST Pending Prescriptions: Disp Refills atorvaSTATin (LIPITOR) 40 MG Tablet 90 Tab 3 Sig: Take 1 Tab by mouth daily. * Telephone Encounter - Elenita Dallas OSA - 09/07/2018 12:37 PM EST .REQUESTING 90 DAY SUPPLY Last Office Visit: 07/23/2018 Next Office Visit: 02/04/2019 Scheduled Provider(s): Marcela Pinto MD If no future appointments scheduled, and last appointment is greater than a year ago, please schedule patient for a follow-up appointment Last date the medication was ordered: 08/10/2018 Patient Phone Numbers Labs: Lab Results Component [...] Visit Internal Medicine Marcela Pinto MD [address] [place] [address] [phone] 06/01/2019 Imaging Radiology Health Maintenance Due Date [...] fileas of this encounter Visit Diagnoses Diagnosis Hyperlipidemia with target LDL less than 100 Other and unspecified hyperlipidemia in this encounter Advance Directives Patient has advance care planning documents on file. For more information, please contact: [place] [phone]
--- OUTSIDE RECORDS SUMMARY | 2023-06-18 03:43 | External Medical Summary | Summary of Care ---
Author Name Unknown Organization [place] [address] Care Team Providers Care Hostess Cashier Name Role Phone Marcela Pinto MD Primary Care Provider [phone] Reason for Referral * Evaluate & Treat - Unlimited Visits (Within 10 days (routine)) Status Reason Specialty Diagnoses / Procedures Referred By Contact Referred To Contact Pending Review Specialty Services Required Gastroenterology Diagnoses H/O colonoscopy with polypectomy Marcela Pinto MD [address] [place] [address] Reason for Visit * Reason Comments FYI Encounter Details Date Type Department Care Team Description 03/05/2018 Telephone General Internal Medicine [facility] [address] [place] [address] Marcela Pinto MD [address] [place] [address] [phone] FYI Allergies Active Allergy Reactions Severity Noted [...] other day 60 Tab 11 8 Active IRON 325 (65 FE) MG PO TABS 1 daily 0 04/13/20 18 Discontinued furosemide (LASIX) 40 MG TabletIndications:E ssential hypertension with goal blood pressure less than 130/80 One pill daily as needed for edema. 30 Tab 11 7 05/25/20 18 Discontinued albuterol sulfate (PROVENTIL) (2.5 MG/3ML) 0.083% nebulizer solutionIndications :Asthma with severity to be determined,COPD, moderate (HCC) USE ONE NEBULIZER TREATMENT TWICE A DAY NEEDED FOR WORSENING ASTHMA. J45.909, J44.9 225 mL 1 7 07/16/20 18 Discontinued dicyclomine (BENTYL) 20 MG TabletIndications:C hronic constipation TAKE 1 TABLET BY MOUTH EVERY DAY 90 Tab 2 7 05/30/20 18 Discontinued glimepiride (AMARYL) 4 MG TabletIndications:T ype 2 diabetes mellitus with hemoglobin A1c goal of less than 7.5% (HCC) TAKE 1 TABLET BY MOUTH IN THE MORNING AND 1/2 TABLET BY MOUTH IN THE EVENING 135 Tab 1 7 03/20/20 18 Discontinued KLOR-CON M20 20 MEQ TBCRIndications:HTN , goal below 140/90 TAKE 1 TABLET BY MOUTH DAILY 90 Tab 1 7 03/20/20 18 Discontinued Terazosin HCl 2 MG Capsule TAKE ONE CAPSULE BY MOUTH EVERY DAY 90 Cap 1 8 05/15/20 18 Discontinued DilTIAZem HCl ER Coated Beads 360 MG [id number]:HTN , goal below 130/80 TAKE 1 CAPSULE EVERY DAY 90 Cap 1 8 05/01/20 18 Discontinued omeprazole (PRILOSEC) 20 MG CPDRIndications:Isc hemic colitis (HCC) TAKE 1 CAPSULE TWICE DAILY 180 Cap 1 8 05/13/20 18 Discontinued COMBIVENT RESPIMAT 20-100 MCG/ACT InhalerIndications: Asthma with severity to be determined,COPD, moderate (HCC) TAKE 1 PUFF BY MOUTH 4 TIMES A DAY 1 Inhaler 5 8 07/01/20 18 Discontinued HYDROcodone-acetami nophen 5-325 mg per tab 5-325 MG per tabletIndications:G eneralized osteoarthritis Take 1 Tab by mouth every 6 hours as needed for Pain, Breakthrough. 120 Tab 0 8 03/31/20 18 Discontinued zafirlukast (ACCOLATE) 20 MG TabletIndications:A sthma with severity to be determined TAKE 1 TABLET EVERY DAY 90 Tab 1 8 07/12/20 18 Discontinued busPIRone (BUSPAR) 15 MG TabletIndications:G AD (generalized anxiety disorder) Take 1 Tab by mouth 2 times a day. 60 Tab 5 8 08/13/20 18 Discontinued atorvaSTATin (LIPITOR) 40 MG TabletIndications:H yperlipidemia with target LDL less than 100 Take 1 Tab by mouth daily. 30 Tab 5 8 08/08/20 18 Discontinued as of this encounter Active [...] Hypoxemia 10/08/2011 10/30/2015 Genetic Sleep Disorder Research Other*[id number] 07/25/2011 05/15/2016 Obesity, morbid (more than 1 [...] No Preserve, 6 Mons & Above, IM 07/30/2017 Seasonal Influenza, Quadriva lent, No Preserve, IM 08/15/2016,07/14/2015 Seasonal Influenza, Trivalen t, with Preserve, 3yr & Above, Split 08/04/2014,07/26/2013,06/26/2012,,08/16/2010,07/18/2009,2007,08/12/2006 TD, Preservative Free 02/28/2009 Varicella Zoster Vaccine (Adult) 07/06/2012 as of [...] encounter Miscellaneous Notes * Telephone Encounter - Donna Pacheco, JORDAN - 03/11/2018 2:59 PM EDT Pt is scheduled for 04/13 w/Dr. Coello at . Pt was offered sooner appts but wanted to only make one trip to the area when she has another appt scheduled w/Nita Enriquez in Nutrition. Pt declined a sooner appt and stated she is okay to wait until 04/13 and will call if needed to be seen sooner. * Telephone Encounter - Chantel Elizabeth, JORDAN - 03/11/2018 12:28 PM EDT Please call to arrange a hospital follow up. * Telephone Encounter - Marcela Pinto MD - 03/06/2018 9:33 AM EDT Yes, fine to see midlevel. thanks. * Telephone Encounter - Cristiane Rapp, JORDAN - 03/06/2018 8:37 AM EDT Lm for patient at home number to schedule a return visit with one of the SYSTEMS TRAINER. * Telephone Encounter - Elenita Nichole, JORDAN - 03/05/2018 4:35 PM EDT Pt has seen Dr. Eagle in the past, ok to see a mid level for a sooner appt? Dr. Eagle's first avail is 7.2.18. Please advise. * Telephone Encounter - Renetta Gu LPN - 03/05/2018 4:29 PM EDT Patient is aware and will comply. Please call and schedule Gastro follow up from recent hospitalization Dx colonoscopy with polypectomy/rectal bleeding Priority within 2 weeks. Thank you * Telephone Encounter - Renetta Gu LPN - 03/05/2018 4:26 PM EDT ----- Message from Marcela Pinto MD sent at 03/05/2018 3:51 PM EDT ----- Cbc shows slightly high wbc count and Hb slightly improved from 9.6 to 10.5. Continue hydration, iron pill OTC once daily every other day. Repeat cbcd, CMP in one week. Need to make f/u with GI as recently was in the hospital with GI bleed and had polypectomy. in this encounter Plan of Treatment Upcoming Encounters Date Type Specialty Care Team Description 09/08/2018 Nutrition Services Gastroenterology Nita Enriquez, RDN [address] [place] [address] 2018 Office Visit Podiatry Chantel Moore, DPM [address] [place] [address] 02/04/2019 Office Visit Internal Medicine Marcela Pinto MD [address] [place] [address] [phone] 06/01/2019 Imaging Radiology Scheduled Referrals Name Priority Associated Diagnoses Order S chedule GASTROENTEROLOGY REFERRAL OP Within 10 days (routine) H/O colonoscopy with polypectomy Ordered: 03/05/2018 Health Maintenance Due Date Last Done Comments [...] Implants Not on fileas of this encounter Results * CBC/DIFF (03/13/2018 11:53 AM EDT) WBC 9.76 4.00 - 10.80 K/uL [facility] RBC 3.80(L) 3.85 - 5.15 M/uL [facility] HGB 10.6(L) 12.0 - 15.3 g/dL [facility] HCT 34.0(L) 36.0 - 45.2 % [facility] MCV 89.5 81.5 - 97.5 fL [facility] MCH 27.9 27.0 - 34.0 pg [facility] MCHC 31.2(L) 32.0 - 36.0 g/dL [facility] RDW 14.1 11.5 - 15.5 % [facility] PLATELET COUNT 280 140 - 400 K/uL [facility] MPV 10.4 6.6 - 11.1 fL [facility] NEUTS 58.4 40 - 75 % [facility] LYMPHS 23.1 18 - 42 % [facility] MONOS 16.4(H) 1 - 11 % [facility] EOS 1.4 0 - 6 % [facility] BASOS 0.3 0 - 2 % [facility] IMMATURE GRANULOCYTE 0.4 0 - 2 % [facility] ABS. NEUTS 5.70 1.8 - 7.7 K/uL [facility] ABS. LYMPHS 2.25 1.0 - 4.8 K/uL [facility] ABS. MONOS 1.60(H) 0.0 - 1.1 K/uL [facility] ABS. EOS 0.14 0.0 - 0.7 K/uL [facility] ABS. BASOS 0.03 0.0 - 0.2 K/uL [facility] ABSOLUTE IMMATURE GRANULOCYTES 0.04 0.0 - 0.2 K/uL [facility] Performing Organization Address City/[facility]/Zipcod e Phone Number [facility], [address] [place] [address] * COMPR METAB PANEL (03/13/2018 11:53 AM EDT) BUN 13 6 - 20 mg/dL [facility] CREATININE 1.0 Comment: GFR should be used to assess renal function.Plasma/Seru m creatinine may not be able to properly reflect renal function in some cases. 0.5 - 1.0 mg/dL [facility] SODIUM 140 135 - 146 mmol/L [facility] POTASSIUM 4.4 3.5 - 5.1 mmol/L [facility] CHLORIDE 99 98 - 107 mmol/L [facility] CO2 29 22 - 32 mmol/L [facility] ANION GAP 12 7 - 15 mmol/L [facility] GLUCOSE 128(H) 70 - 120 mg/dL [facility] ALBUMIN 4.0 3.8 - 5.0 g/dL [facility] AST 26 10 - 35 U/L [facility] ALKALINE PHOSPHATASE 105 0 - 153 U/L [facility] BILIRUBIN, TOTAL 0.4 0 - 1.2 mg/dL [facility] CALCIUM 9.3 8.4 - 10.2 mg/dL [facility] PROTEIN 6.6 6.0 - 8.3 g/dL [facility] ALT 23 10 - 35 U/L [facility] E GLOM FILT RATE 54.9(L)Comment:If patient is , multiply estimated GFR by 1.159. >60 [facility] Performing Organization Address City/[facility]/Zipcod e Phone Number [facility], [address] [place] [address] in this encounter Visit Diagnoses Diagnosis H/O colonoscopy with polypectomy- Primary Other postprocedural status COPD, moderate (HCC) Chronic airway obstruction, not elsewhere classified Type 2 diabetes mellitus with hemoglobin A1c goal of less than 7.5% (HCC) in this encounter Advance Directives Patient has advance care planning documents on file. For more information, please contact: [place] [phone]
--- OUTSIDE RECORDS SUMMARY | 2023-06-18 03:43 | External Medical Summary | Summary of Care ---
Author Name Unknown Organization [place] [address] Care Team Providers Care Mathematician Research Name Role Phone Marcela Pinto MD Primary Care Provider Reason for Visit * Reason Comments Scheduling patency capsule Encounter Details Date Type Department Care Team Description 08/13/2018 Telephone Gastroenterology, [facility] 132 [facility] [place] [address] Madeleine Coello MD 132 [place] [address] [phone] Scheduling (patency capsule) Allergies Active Allergy Reactions Severity Noted Date Comments Valsartan 07/10/2010 Enalapril 05/21/2006 Escitalopram Oxalate Nausea/vomiting 10/11/2009 Nauseated Iodinated Diagnostic Agents Nausea/vomiting 05/2010 IV Contrast Lisinopril 05/21/2006 Metoprolol Tartrate 11/18/2006 Made pulse low [place] Oil-Black Currant-Vit E 07/10/2010 Verapamil 03/21/2004 Bupropion [...] Active DilTIAZem HCl ER Beads 360 MG VE49Ryvwarppcnr:HTN , goal below 130/80 TAKE 1 CAPSULE [...] Hypoxemia 10/08/2011 10/30/2015 Genetic Sleep Disorder Research Other*[id number] 07/25/2011 05/15/2016 Obesity, morbid (more than 1 [...] Telephone Encounter - Zulay Eagle DO - 09/10/2018 3:06 PM EST Lets hold on the VCE, lets have her see an CIVILIAN JAIL OFFICER in about 3 months. * Telephone Encounter - Radha Valencia RN - 09/10/2018 10:[address] Eagle- are you able to confirm if we [...] thepatency capsule on 08/18/18. Patency capsule lot# [id number] expires 03/04/19. Patient will follow up with abdominal x-ray as instructed. Patient had no further questions or concerns. Nursing staff--please follow up on 08/20/18 for x-ray results. in this encounter Plan of Treatment Upcoming Encounters Date Type Specialty Care Team Description 10/19/2018 Nutrition Services Gastroenterology Nita Enriquez, IWONAN [address] [place] [address] 2018 Office Visit Podiatry Chantel Moore DPM [address] [place] [address] 02/04/2019 Office Visit Internal Medicine Marcela Pinto MD [address] [place] [address], [place] [id number] 06/01/2019 Imaging Radiology Health Maintenance Due Date [...] the abdomen to the left of midline. [facility] Narrative Performed At EXAM XR [...] 29 mm in diameter.Patency capsule has passed. [facility] Procedure Note Interface, Rad In [...] Performing Organization Address City/State/Zipcod e Phone Number [facility] in this encounter Visit Diagnoses Diagnosis Anemia, unspecified type- Primary in this encounter Advance Directives Patient has advance care planning documents on file. For more information, please contact: [facility] [place] [phone]
--- OUTSIDE RECORDS SUMMARY | 2023-06-18 03:44 | External Medical Summary | Summary of Care ---
Author Name Unknown Organization [place] [address] Care Team Providers Care Assembler Caterpillar Spider Name Role Phone Marcela Pinto MD Primary Care Provider [phone] Encounter Details Date Type Department Care Team Description 08/26/2018 Orders Only General Internal Medicine [facility] [address] [place] [address] Marcela Pinto MD 200 [place] [address] [phone] ERROR - DUPLICATE Allergies Active Allergy Reactions Severity Noted Date Comments Valsartan 07/10/2010 Enalapril 05/21/2006 Escitalopram Oxalate Nausea/vomiting 10/11/2009 Nauseated Iodinated Diagnostic Agents Nausea/vomiting 05/2010 IV Contrast Lisinopril 05/21/2006 Metoprolol Tartrate 11/18/2006 Made pulse low [place] Oil-Black Currant-Vit E 07/10/2010 Verapamil 03/21/2004 Bupropion [...] Active DilTIAZem HCl ER Beads 360 MG AB10Whoseqyhfym:HTN, goal below 130/80 TAKE 1 CAPSULE EVERY [...] with target LDL less than 100 05/15/2016 Severe obesity with body mas s index (BMI) of 35.0 to 39.9 with serious comorbidity 05/15/2016 Overview: ICD-10 update of inactive diagnosis HTN, goal below 140/90 12/18/2015 Overview: Per [...] Resolved Problems Problem Noted Date Resolved Date DM (diabetes mellitus), type 2 08/07/2015 0 06/25/2017 Nausea 09/05/2012 06/25/2017 Overview: ICD-10 update of inactive term HTN, GOAL BELOW 140/80 06/01/2012 6 Overview: Per HTN Protocol #27. Hypoxemia 10/08/2011 10/30/2015 Genetic Sleep Disorder Research Other*[id number] 07/25/2011 05/15/2016 Obesity, morbid (more than 1 [...] of this encounter Progress Notes * Marly Mejia, JORDAN - 08/26/2018 11:57 AM EST ERROR - DUPLICATE in this encounter Plan of Treatment Upcoming Encounters Date Type Specialty Care Team Description 08/31/2018 Office Visit Podiatry Chantel Moore, LEONARD [address] [place] [id number] 09/08/2018 Nutrition Services Gastroenterology Nita Enriquez, IWONAN [address] [place] [id number] 02/04/2019 Office Visit Internal Medicine Marcela Pinto MD 200 [facility], [place] [address] 06/01/2019 Imaging Radiology Health Maintenance Due Date [...] For more information, please contact: [place] [phone]
--- OUTSIDE RECORDS SUMMARY | 2023-06-18 03:44 | External Medical Summary | Summary of Care ---
Author Name Unknown Organization [place] [address] Care Team Providers Care Polymerization Helper Name Role Phone Marcela Pinto MD Primary Care Provider [phone] Reason for Visit * Reason Comments Medication Refill Encounter Details Date Type Department Care Team Description 08/25/2018 Refill General Internal Medicine [facility] [address] [place] [address] Marcela Pinto MD 200 [place] [address] [phone] GENERAL OSTEOARTHROSIS Allergies Active Allergy Reactions Severity Noted Date Comments Valsartan 07/10/2010 Enalapril 05/21/2006 Escitalopram Oxalate Nausea/vomiting 10/11/2009 Nauseated Iodinated Diagnostic Agents Nausea/vomiting 05/2010 IV Contrast Lisinopril 05/21/2006 Metoprolol Tartrate 11/18/2006 Made pulse low [place] Oil-Black Currant-Vit E 07/10/2010 Verapamil 03/21/2004 Bupropion [...] Active DilTIAZem HCl ER Beads 360 MG AK95Epkihkrxkjh:HTN , goal below 130/80 TAKE 1 CAPSULE [...] Hypoxemia 10/08/2011 10/30/2015 Genetic Sleep Disorder Research Other*[id number] 07/25/2011 05/15/2016 Obesity, morbid (more than 1 [...] Telephone Encounter - Marcela Pinto MD - 08/25/2018 3:40 PM EST Signed. * Telephone Encounter - Sharonda Clark [facility] - 08/25/2018 3:01 PM EST I have reviewed the patients controlled substance dispensing history in the Prescription Drug Monitoring Program in compliance with the [facility] regulations before prescribing a controlled substance. PDMP checked on 08/25/2018. Patient requesting: Hydrocodone/apap 5/325mg, filled 07/21/18, for #120 for a 30 day supply. Other recent controlled medication fills: None Date medication is due for refill: today Toxicology results: Results for orders placed or [...] appropriate. Thank You, Sharonda Clark [facility] Staff Pharmacist Pharmacy Refill Call Center 08/25/2018, 3:01 PM * Telephone Encounter - Pascale Zapata CPhT - 08/25/2018 10:24 AM EST [facility] Pending Prescriptions: Disp Refills HYDROcodone-acetaminophen 5-325 mg [...] appointment Last date the medication was ordered: 07/21/18 Patient Phone Numbers Labs: Lab Results Component [...] Team Description 08/31/2018 Office Visit Podiatry Chantel Moore DPM [address] [place] [id number] 09/08/2018 Nutrition Services Gastroenterology Nita Enriquez RDN [address] [place] [address] 02/04/2019 Office Visit Internal Medicine Marcela Pinto MD 200 [place] [address] [phone] 06/01/2019 Imaging Radiology Health Maintenance Due Date [...] For more information, please contact: [place] [address]
--- OUTSIDE RECORDS SUMMARY | 2023-06-18 03:44 | External Medical Summary | Summary of Care ---
Author Name Unknown Organization [place] [address] Care Team Providers Care Hot Stone Setter Name Role Phone Marcela Pinto MD Primary Care Provider [phone] Reason for Visit * Reason Comments Scheduling patency capsule Encounter Details Date Type Department Care Team Description 08/13/2018 Telephone Gastroenterology, [facility] 132 [facility] [place] [address] Madeleine Coello MD 132 [place] [address] [phone] Scheduling (patency capsule) Allergies Active Allergy Reactions Severity Noted Date Comments Valsartan 07/10/2010 Enalapril 05/21/2006 Escitalopram Oxalate Nausea/vomiting 10/11/2009 Nauseated Iodinated Diagnostic Agents Nausea/vomiting 05/2010 IV Contrast Lisinopril 05/21/2006 Metoprolol Tartrate 11/18/2006 Made pulse low [place] Oil-Black Currant-Vit E 07/10/2010 Verapamil 03/21/2004 Bupropion [...] Active DilTIAZem HCl ER Beads 360 MG HY70Igzcdribzig:HTN , goal below 130/80 TAKE 1 CAPSULE [...] J45.909, J44.9 225 mL 1 8 Active HYDROcodone-acetami nophen 5-325 mg per tab 5-325 MG per tabletIndications:G eneralized osteoarthritis Take 1 Tab by mouth every 6 hours as needed for Pain, Mild. 120 Tab 0 8 Active atorvaSTATin (LIPITOR) 40 MG TabletIndications:H [...] 90 Tab 0 8 08/16/20 18 Discontinued as of this encounter Active [...] Hypoxemia 10/08/2011 10/30/2015 Genetic Sleep Disorder Research Other*[id number] 07/25/2011 05/15/2016 Obesity, morbid (more than 1 [...] thepatency capsule on 08/18/18. Patency capsule lot# [id number] expires 03/04/19. Patient will follow up with abdominal x-ray as instructed. Patient had no further questions or concerns. Nursing staff--please follow up on 08/20/18 for x-ray results. in this encounter Plan of Treatment Upcoming Encounters Date Type Specialty Care Team Description 08/31/2018 Office Visit Podiatry Chantel Moore DPM [address] [place] [address] 09/08/2018 Nutrition Services Gastroenterology Nita Enriquez, RDN [address] [place] [address] 02/04/2019 Office Visit Internal Medicine Marcela Pinto MD [address] [place] [address] [phone] 06/01/2019 Imaging Radiology Pending Results Name Priority Associated Diagnoses Date/Ti me XR ABDOMEN 1 VIEW Routine Anemia, unspecified type 08/24/2018 11:52 AM EST Health Maintenance Due Date Last [...] fileas of this encounter Visit Diagnoses Diagnosis Anemia, unspecified type- Primary in this encounter Advance Directives Patient has advance care planning documents on file. For more information, please contact: [place] [phone]
--- OUTSIDE RECORDS SUMMARY | 2023-06-18 03:44 | External Medical Summary ---
Author Name Unknown Address [facility] [place] [address] Phone Organization K01:[facility] [address] [id number] Laboratory Report Ordering Provider Test Date Status ALIX BARFIELD 08/24/2018 11:30:00 Final Observation Date Value Abnormality Reference Status WBC, Total 08/24/2018 22:22 10.09 4.00-10.80 F inal RBC 08/24/2018 22:22 4.22 3.85-5.15 Fin al Hemoglobin 08/24/2018 22:22 11.2 Below low normal 12.0- 15.3 Final HCT 08/24/2018 22:22 37.4 36.0-45.2 Fin al MCV 08/24/2018 22:22 88.6 81.5-97.5 Fin al MCH 08/24/2018 22:22 26.5 Below low normal 27.0-3 4.0 Final MCHC 08/24/2018 22:22 29.9 Below low normal 32.0-3 6.0 Final RDW 08/24/2018 22:22 15.1 11.5-15.5 Fin al Platelets 08/24/2018 22:22 366 140-400 Fin al MPV 08/24/2018 22:22 10.2 6.6-11.1 Fin al Performing Location [place] [address] [address] [facility] [address]
--- OUTSIDE RECORDS SUMMARY | 2023-06-18 03:44 | External Medical Summary | Summary of Care ---
Author Name Unknown Organization [place] [address] Care Team Providers Care Animal Husbandry Manager Name Role Phone Marcela Pinto MD Primary Care Provider [phone] Reason for Visit * Reason Comments Referral CT at [place] Encounter Details Date Type Department Care Team Description 08/13/2018 Telephone Gastroenterology, [facility] 132 [facility] [place] [address] Charles Coello MD 132 [facility] [address] [phone] Referral ([place] at [place]) Allergies Active Allergy Reactions Severity Noted Date Comments Valsartan 07/10/2010 Enalapril 05/21/2006 Escitalopram Oxalate Nausea/vomiting 10/11/2009 Nauseated Iodinated Diagnostic Agents Nausea/vomiting 05/2010 IV Contrast Lisinopril 05/21/2006 Metoprolol Tartrate 11/18/2006 Made pulse low [place] Oil-Black Currant-Vit E 07/10/2010 Verapamil 03/21/2004 Bupropion [...] Active DilTIAZem HCl ER Beads 360 MG HV24Rftkxrlrxln:HTN , goal below 130/80 TAKE 1 CAPSULE [...] Hypoxemia 10/08/2011 10/30/2015 Genetic Sleep Disorder Research Other*[id number] 07/25/2011 05/15/2016 Obesity, morbid (more than 1 [...] Miscellaneous Notes * Telephone Encounter - Donna Pacheco OSA - 08/13/2018 4:38 PM EDT Pt is scheduled for CT at [facility] on 08/25 at 1230pm arrival for a 1pm appt. Pt has copy of order to hand carry and order faxed to [place] along with most recent Bun/Creatinine lab results to [phone]. in this encounter Plan of Treatment Upcoming Encounters Date Type Specialty Care Team Description 08/31/2018 Office Visit Podiatry Chantel Moore, JOHNM [address] [place] [address] 09/08/2018 Nutrition Services Gastroenterology Nita Enriquez RDN [address] [place] [address] 02/04/2019 Office Visit Internal Medicine Marcela Pinto MD [address] [place] [address] [phone] 06/01/2019 Imaging Radiology Health Maintenance Due Date [...] For more information, please contact: [place] [phone]
--- OUTSIDE RECORDS SUMMARY | 2023-06-18 03:44 | External Medical Summary | Summary of Care ---
Author Name Unknown Organization [place] [address] Care Team Providers Care Supervisor Of Operations Name Role Phone Marcela Pinto MD Primary Care Provider [phone] Reason for Visit * Reason Comments Scheduling patency capsule Encounter Details Date Type Department Care Team Description 08/13/2018 Telephone Gastroenterology, [facility] 132 [facility] [place] [address] Charles Coello MD 132 [facility] [place] [address] [phone] Scheduling (patency capsule) Allergies Active Allergy Reactions Severity Noted Date Comments Valsartan 07/10/2010 Enalapril 05/21/2006 Escitalopram Oxalate Nausea/vomiting 10/11/2009 Nauseated Iodinated Diagnostic Agents Nausea/vomiting 05/2010 IV Contrast Lisinopril 05/21/2006 Metoprolol Tartrate 11/18/2006 Made pulse low [place] Oil-Black Currant-Vit E 07/10/2010 Verapamil 03/21/2004 [...] Active DilTIAZem HCl ER Beads 360 MG EG69Ngudqtyxnxd:HTN, goal below 130/80 TAKE 1 CAPSULE EVERY [...] FOR EDEMA 30 Tab 11 05/25/2018 Active dicyclomine (BENTYL) 20 MG TabletIndications:Ch ronic constipation TAKE 1 TABLET BY MOUTH EVERY DAY 90 Tab 0 06/01/2018 Active COMBIVENT RESPIMAT 20-100 MCG/ACT InhalerIndications:A sthma [...] J45.909, J44.9 225 mL 1 07/17/2018 Active HYDROcodone-acetamin ophen 5-325 mg per tab 5-325 MG per tabletIndications:Ge neralized osteoarthritis Take 1 Tab by mouth every 6 hours as needed for Pain, Mild. 120 Tab 0 07/21/2018 Active atorvaSTATin (LIPITOR) 40 MG TabletIndications:Hy perlipidemia [...] CT scan. 3 Tab 0 08/13/2018 Active as of this encounter Active Problems [...] Hypoxemia 10/08/2011 10/30/2015 Genetic Sleep Disorder Research Other*[id number] 07/25/2011 05/15/2016 Obesity, morbid (more than 1 [...] thepatency capsule on 08/18/18. Patency capsule lot# [id number] expires 03/04/19. Patient will follow up with [...] Visit Internal Medicine Marcela Pinto MD 200 [place], [place] [address] 06/01/2019 Imaging Radiology Health Maintenance Due Date [...] For more information, please contact: [place] [phone]
--- OUTSIDE RECORDS SUMMARY | 2023-06-18 03:44 | External Medical Summary | Summary of Care ---
Author Name Unknown Organization [place] [address] Care Team Providers Care Hot Tar Roofer Name Role Phone Marcela Pinto MD Primary Care Provider [phone] Reason for Visit * Reason Comments Scheduling patency capsule Encounter Details Date Type Department Care Team Description 08/13/2018 Telephone Gastroenterology, [facility] 132 [facility] [place] [address] Madeleine Coello MD 132 [place] [address] [phone] Scheduling (patency capsule) Allergies Active Allergy Reactions Severity Noted Date Comments Valsartan 07/10/2010 Enalapril 05/21/2006 Escitalopram Oxalate Nausea/vomiting 10/11/2009 Nauseated Iodinated Diagnostic Agents Nausea/vomiting 05/2010 IV Contrast Lisinopril 05/21/2006 Metoprolol Tartrate 11/18/2006 Made pulse low [place] [...] Active DilTIAZem HCl ER Beads 360 MG XM67Uhkhizjjkfv:HTN , goal below 130/80 TAKE 1 CAPSULE [...] Hypoxemia 10/08/2011 10/30/2015 Genetic Sleep Disorder Research Other*[id number] 07/25/2011 05/15/2016 Obesity, morbid (more than 1 [...] - 08/20/2018 2:01 PM EST Addended by: MAEDLEINE COELLO on: 08/20/2018 02:01 PM Modules accepted: [...] thepatency capsule on 08/18/18. Patency capsule lot# [id number] expires 03/04/19. Patient will follow up with abdominal x-ray as instructed. Patient had no further questions or concerns. Nursing staff--please follow up on 08/20/18 for x-ray results. in this encounter Plan of Treatment Upcoming Encounters Date Type Specialty Care Team Description 08/31/2018 Office Visit Podiatry Chantel Moore, DPM [address] [place] [address] 09/08/2018 Nutrition Services Gastroenterology Nita Enriquez, AKIKO [address] [place] [id number] 02/04/2019 Office Visit Internal Medicine Marcela Pinto MD 200 [facility] [place] [address] [phone] 06/01/2019 Imaging Radiology Health Maintenance Due Date [...] the abdomen to the left of midline. [facility] Narrative Performed At EXAM XR [...] 29 mm in diameter.Patency capsule has passed. [facility] Procedure Note Interface, Rad In [...] For more information, please contact: [place] [phone]
--- OUTSIDE RECORDS SUMMARY | 2023-06-18 03:44 | External Medical Summary | Summary of Care ---
Author Name Unknown Organization [place] [address] Care Team Providers Care Depalletizer Operator Name Role Phone Marcela Pinto MD Primary Care Provider [phone] Reason for Visit * Reason Comments Encounter Created in Error Encounter Details Date Type Department Care Team Description 08/20/2018 Telephone [facility]astroenterology, [facility] [place] [address] Charles Coello MD 132 [address] [facility] [place] [address] [phone] Encounter Created in Error Allergies Active Allergy Reactions Severity Noted Date Comments Valsartan 07/10/2010 Enalapril 05/21/2006 Escitalopram Oxalate Nausea/vomiting 10/11/2009 Nauseated Iodinated Diagnostic Agents Nausea/vomiting 05/2010 IV Contrast Lisinopril 05/21/2006 Metoprolol Tartrate 11/18/2006 Made pulse low [place] Oil-Black Currant-Vit E 07/10/2010 Verapamil 03/21/2004 Bupropion [...] Active DilTIAZem HCl ER Beads 360 MG BQ56Pgwsmttpuxp:HTN, goal below 130/80 TAKE 1 CAPSULE EVERY [...] EVERY DAY 90 Tab 0 08/17/2018 Active as of this encounter Active Problems [...] Hypoxemia 10/08/2011 10/30/2015 Genetic Sleep Disorder Research Other*[id number] 07/25/2011 05/15/2016 Obesity, morbid (more than 1 [...] Encounter - Randa Oswald RN - 08/20/2018 8:18 AM EST in this encounter Plan of Treatment Upcoming Encounters Date Type Specialty Care Team Description 08/31/2018 Office Visit Podiatry Chantel Moore, DPM [address] [place] [id number] 09/08/2018 Nutrition Services Gastroenterology Nita Enriquez, AKIKO [address] [place] [phone] 02/04/2019 Office Visit Internal Medicine Marcela Pinto MD [address] [place] [address], [place] [address] [phone] 06/01/2019 Imaging Radiology Health Maintenance Due Date [...] For more information, please contact: [place] [phone]
--- OUTSIDE RECORDS SUMMARY | 2023-06-18 03:44 | External Medical Summary | Summary of Care ---
Author Name Unknown Organization [place] [address] Care Team Providers Care Account Management Specialist Name Role Phone Marcela Pinto MD Primary Care Provider [phone] Reason for Visit * Reason Comments Scheduling patency capsule Encounter Details Date Type Department Care Team Description 08/13/2018 Telephone Gastroenterology, [facility] 132 [facility] [place] [address] Madeleine Coello MD 132 [place] [address] [phone] Scheduling (patency capsule) Allergies Active Allergy Reactions Severity Noted Date Comments Valsartan 07/10/2010 Enalapril 05/21/2006 Escitalopram Oxalate Nausea/vomiting 10/11/2009 Nauseated Iodinated Diagnostic Agents Nausea/vomiting 05/2010 IV Contrast Lisinopril 05/21/2006 Metoprolol Tartrate 11/18/2006 Made pulse low [place] Oil-Black Currant-Vit E 07/10/2010 Verapamil 03/21/2004 Bupropion [...] Active DilTIAZem HCl ER Beads 360 MG DK37Ijuafiadeov:HTN , goal below 130/80 TAKE 1 CAPSULE [...] Hypoxemia 10/08/2011 10/30/2015 Genetic Sleep Disorder Research Other*[id number] 07/25/2011 05/15/2016 Obesity, morbid (more than 1 [...] thepatency capsule on 08/18/18. Patency capsule lot# [id number] expires 03/04/19. Patient will follow up with [...] [address] [place] [id number] 02/04/2019 Office Visit Internal Medicine Marcela Pinto MD 200 [place] [address] [phone] 06/01/2019 Imaging Radiology Health Maintenance Due Date [...] the abdomen to the left of midline. [facility] Narrative Performed At EXAM XR ABDOMEN [...] 29 mm in diameter.Patency capsule has passed. [facility] Procedure Note Interface, Rad In - [...] Performing Organization Address City/State/Zipcod e Phone Number [facility] in this encounter Visit Diagnoses Diagnosis Anemia, unspecified type- Primary in this encounter Advance Directives Patient has advance care planning documents on file. For more information, please contact: [employer] [place] [phone]
--- OUTSIDE RECORDS SUMMARY | 2023-06-18 03:44 | External Medical Summary | Summary of Care ---
Author Name Unknown Organization [place] [address] Care Team Providers Care Radiologic Technician Name Role Phone Marcela Pinto MD Primary Care Provider [phone] Reason for Visit * Reason Comments Scheduling patency capsule Encounter Details Date Type Department Care Team Description 08/13/2018 Telephone Gastroenterology, [facility] [address] [facility] [place] [address] Madeleine Coello MD 132 [place] [address] [phone] Scheduling (patency capsule) Allergies Active Allergy Reactions Severity Noted Date Comments Valsartan 07/10/2010 Enalapril 05/21/2006 Escitalopram Oxalate Nausea/vomiting 10/11/2009 Nauseated Iodinated Diagnostic Agents Nausea/vomiting 05/2010 IV Contrast Lisinopril 05/21/2006 Metoprolol Tartrate 11/18/2006 Made pulse low [place] Oil-Black Currant-Vit E 07/10/2010 Verapamil 03/21/2004 Bupropion [...] Active DilTIAZem HCl ER Beads 360 MG AZ24Xshwjhzsnbg:HTN , goal below 130/80 TAKE 1 CAPSULE [...] Hypoxemia 10/08/2011 10/30/2015 Genetic Sleep Disorder Research Other*[id number] 07/25/2011 05/15/2016 Obesity, morbid (more than 1 [...] staff--please follow up on results on 08/25/18. * Addendum Note - Madeleine Coello MD [...] thepatency capsule on 08/18/18. Patency capsule lot# [id number] expires 03/04/19. Patient will follow up with [...] Internal Medicine Marcela Pinto MD 200 [facility] [place] [address] [phone] 06/01/2019 Imaging Radiology Scheduled Tests Name Priority Associated Diagnoses Order S chedule XR ABDOMEN 1 VIEW Routine Anemia, unspecified type Ordered: 08/20/2018 Health Maintenance Due Date Last Done Comments [...] For more information, please contact: [place] [phone]
--- OUTSIDE RECORDS SUMMARY | 2023-06-18 03:44 | External Medical Summary | Summary of Care ---
Author Name Unknown Organization [place] [address] Care Team Providers Care Permanent Waver Name Role Phone Marcela Pinto MD Primary Care Provider [phone] Reason for Visit * Reason Comments Scheduling patency capsule Encounter Details Date Type Department Care Team Description 08/13/2018 Telephone Gastroenterology, [facility] 132 [facility] [place] [address] Madeleine Coello MD 132 [facility] [place] [address] [phone] Scheduling (patency capsule) Allergies Active Allergy Reactions Severity Noted Date Comments Valsartan 07/10/2010 Enalapril 05/21/2006 Escitalopram Oxalate Nausea/vomiting 10/11/2009 Nauseated Iodinated Diagnostic Agents Nausea/vomiting 05/2010 IV Contrast Lisinopril 05/21/2006 Metoprolol Tartrate 11/18/2006 Made pulse low [place] Oil-Black Currant-Vit E 07/10/2010 Verapamil 03/21/2004 Bupropion [...] Active DilTIAZem HCl ER Beads 360 MG FQ71Ycbtxxqhpoq:HTN , goal below 130/80 TAKE 1 CAPSULE [...] Hypoxemia 10/08/2011 10/30/2015 Genetic Sleep Disorder Research Other*[id number] 07/25/2011 05/15/2016 Obesity, morbid (more than 1 [...] thepatency capsule on 08/18/18. Patency capsule lot# [id number] expires 03/04/19. Patient will follow up with [...] Visit Internal Medicine Marcela Pinto MD 200 [place] [address] [phone] 06/01/2019 Imaging Radiology Pending Results Name Priority [...] For more information, please contact: [place] [phone]
--- OUTSIDE RECORDS SUMMARY | 2023-06-18 03:44 | External Medical Summary | Summary of Care ---
Author Name Unknown Organization [place] [address] Care Team Providers Care Tow Boat Captain Name Role Phone Marcela Pinto MD Primary Care Provider [phone] Reason for Visit * Reason Comments Scheduling patency capsule Encounter Details Date Type Department Care Team Description 08/13/2018 Telephone Gastroenterology, [facility] 132 [facility] [place] [address] Charles Coello MD 132 [place] [address] [phone] Scheduling (patency capsule) Allergies Active Allergy Reactions Severity Noted Date Comments Valsartan 07/10/2010 Enalapril 05/21/2006 Escitalopram Oxalate Nausea/vomiting 10/11/2009 Nauseated Iodinated Diagnostic Agents Nausea/vomiting 05/2010 IV Contrast Lisinopril 05/21/2006 Metoprolol Tartrate 11/18/2006 Made pulse low [place] Oil-Black Currant-Vit E 07/10/2010 Verapamil 03/21/2004 Bupropion [...] Active DilTIAZem HCl ER Beads 360 MG QD64Tcgevzqfsan:HTN , goal below 130/80 TAKE 1 CAPSULE [...] Hypoxemia 10/08/2011 10/30/2015 Genetic Sleep Disorder Research Other*[id number] 07/25/2011 05/15/2016 Obesity, morbid (more than 1 [...] thepatency capsule on 08/18/18. Patency capsule lot# [id number] expires 03/04/19. Patient will follow up with [...] Visit Internal Medicine Marcela Pinto MD 200 [place] [address] [phone] 06/01/2019 Imaging Radiology Health Maintenance Due Date [...] For more information, please contact: [place] [phone]
--- OUTSIDE RECORDS SUMMARY | 2023-06-18 03:44 | External Medical Summary | Summary of Care ---
Author Name Unknown Organization [place] [address] Care Team Providers Care Wire Photo Operator News Name Role Phone Marcela Pinto MD Primary Care Provider Reason for Visit * Reason Comments Scheduling patency capsule Encounter Details Date Type Department Care Team Description 08/13/2018 Telephone Gastroenterology, [facility] 132 [facility] [place] [address] Madeleine Coello MD 132 [facility] [place] [address] [phone] Scheduling (patency capsule) Allergies Active Allergy Reactions Severity Noted Date Comments Valsartan 07/10/2010 Enalapril 05/21/2006 Escitalopram Oxalate Nausea/vomiting 10/11/2009 Nauseated Iodinated Diagnostic Agents Nausea/vomiting 05/2010 IV Contrast Lisinopril 05/21/2006 Metoprolol Tartrate 11/18/2006 Made pulse low [place] Oil-Black Currant-Vit E 07/10/2010 Verapamil 03/21/2004 Bupropion [...] Active DilTIAZem HCl ER Beads 360 MG RE42Qylgqlmaata:HTN , goal below 130/80 TAKE 1 CAPSULE [...] Hypoxemia 10/08/2011 10/30/2015 Genetic Sleep Disorder Research Other*[id number] 07/25/2011 05/15/2016 Obesity, morbid (more than 1 [...] encounter Miscellaneous Notes * Addendum Note - Madeleine Coello MD [...] thepatency capsule on 08/18/18. Patency capsule lot# [id number] expires 03/04/19. Patient will follow up with [...] Internal Medicine Marcela Pinto MD [address] [place] [address] [phone] 06/01/2019 Imaging Radiology Scheduled Tests Name Priority [...] For more information, please contact: [place] [phone]
--- OUTSIDE RECORDS SUMMARY | 2023-06-18 03:45 | External Medical Summary | Summary of Care ---
Author Name Unknown Organization [place] [address] Care Team Providers Care Calender Inspector Name Role Phone Marcela Pinto MD Primary Care Provider [phone] Reason for Visit * Reason Comments Referral [facility] at [facility] Encounter Details Date Type Department Care Team Description 08/13/2018 Telephone Gastroenterology, [facility] 132 [facility] [place] [address] Charles Coello MD 132 [facility] [address] [phone] Referral ([facility] at [facility]) Allergies Active Allergy Reactions Severity Noted Date Comments Valsartan 07/10/2010 Enalapril 05/21/2006 Escitalopram Oxalate Nausea/vomiting 10/11/2009 Nauseated Iodinated Diagnostic Agents Nausea/vomiting 05/2010 IV Contrast Lisinopril 05/21/2006 Metoprolol Tartrate 11/18/2006 Made pulse low [place] Oil-Black Currant-Vit E 07/10/2010 Verapamil 03/21/2004 Bupropion [...] Active DilTIAZem HCl ER Beads 360 MG IS28Yuwzqohuwtu:HTN, goal below 130/80 TAKE 1 CAPSULE EVERY [...] Hypoxemia 10/08/2011 10/30/2015 Genetic Sleep Disorder Research Other*[id number] 07/25/2011 05/15/2016 Obesity, morbid (more than 1 [...] EDT Pt is scheduled for CT at [facility] on 08/25 at 1230pm arrival for a 1pm appt. Pt has copy of order to hand carry and order faxed to [place] along with most recent Bun/Creatinine lab results to [phone]. in this encounter Plan of Treatment Upcoming Encounters Date Type Specialty Care Team Description 08/31/2018 Office Visit Podiatry Chantel Moore, DPM [address] [place] [address] [place] [address] 09/08/2018 Nutrition Services Gastroenterology Nita Enriquez, AKIKO [address] [place] [address] [place] [address] 02/04/2019 Office Visit Internal Medicine Marcela Pinto MD 200 [place] [address] [phone] 06/01/2019 Imaging Radiology Health Maintenance Due Date [...] For more information, please contact: [place] [phone]
--- OUTSIDE RECORDS SUMMARY | 2023-06-18 03:45 | External Medical Summary | Summary of Care ---
Author Name Unknown Organization [place] [address] Care Team Providers Care Veterinary Epidemiologist Name Role Phone Marcela Pinto MD Primary Care Provider [phone] Reason for Visit * Reason Comments Medication Refill Encounter Details Date Type Department Care Team Description 08/16/2018 Telephone General Internal Medicine [facility] [address] [place] [address] Marcela Pinto MD 200 [place] [address] [phone] Medication Refill Allergies Active Allergy Reactions Severity Noted Date Comments Valsartan 07/10/2010 Enalapril 05/21/2006 Escitalopram Oxalate Nausea/vomiting 10/11/2009 Nauseated Iodinated Diagnostic Agents Nausea/vomiting 05/2010 IV Contrast Lisinopril 05/21/2006 Metoprolol Tartrate 11/18/2006 Made pulse low [place] Oil-Black Currant-Vit E 07/10/2010 Verapamil 03/21/2004 Bupropion [...] Active DilTIAZem HCl ER Beads 360 MG VM65Cwynsjfwesz:HTN, goal below 130/80 TAKE 1 CAPSULE EVERY [...] Hypoxemia 10/08/2011 10/30/2015 Genetic Sleep Disorder Research Other*[id number] 07/25/2011 05/15/2016 Obesity, morbid (more than 1 [...] * Telephone Encounter - Renetta GuNICOL - 08/16/2018 2:21 PM EST Was on historical medication list. Called patient, she states she is not taking medication. Thank you * Telephone Encounter - Elenita Dallas OSA - 08/16/2018 1:24 PM EST Patient requesting refill of Buspirone HCL 15mg one tablet by mouth twice a day Not on med list. Please clarify and refill in this encounter Plan of Treatment Upcoming Encounters Date Type Specialty Care Team Description 08/31/2018 Office Visit Podiatry Chantel Moore, DPM [address] [place] [address] [facility] [address] 09/08/2018 Nutrition Services Gastroenterology Nita Enriquez, RDN [address] [place] [address] [place] [address] 02/04/2019 Office Visit Internal Medicine Marcela Pinto MD [address] [place] [address], [place] [address] [phone] 06/01/2019 Imaging Radiology Health Maintenance Due Date [...] fileas of this encounter Visit Diagnoses Diagnosis HECTOR (generalized anxiety disorder) Generalized anxiety disorder in this encounter Advance Directives Patient has advance care planning documents on file. For more information, please contact: [place] [phone]
--- OUTSIDE RECORDS SUMMARY | 2023-06-18 03:45 | External Medical Summary ---
Author Name Unknown Address [address] [place] [address] Phone Organization K01:[place] [id number] Laboratory Report Ordering Provider Test Date Status ALIX BARFIELD 07/27/2018 11:32:00 Final Observation Date Value Abnormality Reference Status WBC, Total 07/27/2018 23:05 10.92 Above high normal 4.00 -10.80 Final RBC 07/27/2018 23:05 4.07 3.85-5.15 Fin al Hemoglobin 07/27/2018 23:05 10.7 Below low normal 12.0- 15.3 Final HCT 07/27/2018 23:05 35.3 Below low normal 36.0-4 5.2 Final MCV 07/27/2018 23:05 86.7 81.5-97.5 Fin al MCH 07/27/2018 23:05 26.3 Below low normal 27.0-3 4.0 Final MCHC 07/27/2018 23:05 30.3 Below low normal 32.0-3 6.0 Final RDW 07/27/2018 23:05 14.4 11.5-15.5 Fin al Platelets 07/27/2018 23:05 397 140-400 Fin al MPV 07/27/2018 23:05 10.1 6.6-11.1 Fin al Performing Location [place] [id number]
--- OUTSIDE RECORDS SUMMARY | 2023-06-18 03:45 | External Medical Summary ---
Author Name Unknown Address [facility] [place] [address] Phone Organization K01:[place] [address] [place] [id number] Laboratory Report Ordering Provider Test Date Status JOSE A JOHNSON 07/27/2018 11:32:00 Final Observation Date Value Abnormality Reference Status Albumin, Urine 07/28/2018 00:18 1.74 Final Creatinine [Moles/volume] in Urine 07/28/2018 00:18 90 Final Microalbumin / Creatinine Ratio 07/28/2018 00:18 19 <30 Final Performing Location [facility] [address] [facility] [address]
--- OUTSIDE RECORDS SUMMARY | 2023-06-18 03:45 | External Medical Summary | Summary of Care ---
Author Name Unknown Organization [place] [address] Care Team Providers Care Athletic Scout Name Role Phone Marcela Pinto MD Primary Care Provider [phone] Reason for Visit * Reason Comments eRx-Medication Refill Encounter Details Date Type Department Care Team Description 08/16/2018 Refill General Internal Medicine [facility] [address] [place] [address] Marcela Pinto MD 200 [place] [address] [phone] HTN, goal below 130/80 Allergies Active Allergy Reactions Severity Noted Date Comments Valsartan 07/10/2010 Enalapril 05/21/2006 Escitalopram Oxalate Nausea/vomiting 10/11/2009 Nauseated Iodinated Diagnostic Agents Nausea/vomiting 05/2010 IV Contrast Lisinopril 05/21/2006 Metoprolol Tartrate 11/18/2006 Made pulse low [place] Oil-Black Currant-Vit E 07/10/2010 Verapamil 03/21/2004 Bupropion [...] Active DilTIAZem HCl ER Beads 360 MG RU54Fovhogfpvsl:HTN, goal below 130/80 TAKE 1 CAPSULE EVERY [...] Hypoxemia 10/08/2011 10/30/2015 Genetic Sleep Disorder Research Other*[id number] 07/25/2011 05/15/2016 Obesity, morbid (more than 1 [...] encounter Miscellaneous Notes * Telephone Encounter - Clair Charles LPN - 08/17/2018 8:54 AM EST Refused Prescriptions: Disp Refills DilTIAZem HCl ER Beads 360 MG CP24 [Pharma*90 Cap 0 Sig: TAKE 1CAPSULE EVERY DAYRefused By: CLAIR CHARLES PReason for Refusal: Too soon in this encounter Plan of Treatment Upcoming Encounters Date Type Specialty Care Team Description 08/31/2018 Office Visit Podiatry Chantel Moore, DPM [address] [place] [address] [place] [address] 09/08/2018 Nutrition Services Gastroenterology Nita Enriquez RDN [address] [place] [address] [place] [address] 02/04/2019 Office Visit Internal Medicine Marcela Pinto MD 200 [place] [address] 06/01/2019 Imaging Radiology Health Maintenance [...] fileas of this encounter Visit Diagnoses Diagnosis HTN, goal below 130/80 Unspecified essential hypertension in this encounter Advance Directives Patient has advance care planning documents on file. For more information, please contact: [place] [phone]
--- OUTSIDE RECORDS SUMMARY | 2023-06-18 03:45 | External Medical Summary ---
Author Name Unknown Address [address] [place] [address] Phone Organization K01:[place] [id number] Laboratory Report Ordering Provider Test Date Status ALIX BARFIELD 07/27/2018 11:32:00 Final Observation Date Value Abnormality Reference Status Albumin 07/28/2018 01:19 4.1 3.8-5.0 Fin al AST (Aspartate aminotransferase) 07/28/2018 01:19 13 10-35 Final Alk Phos 07/28/2018 01:19 109 0-153 Fin al ALT (Alanine aminotransferase) 07/28/2018 01:19 9 Below low normal 10-35 Fi nal Bilirubin, Total 07/28/2018 01:19 <0.2 0-1.2 Final Bilirubin, Direct 07/28/2018 01:19 <0.2 0-0.3 Final Protein 07/28/2018 01:19 6.8 6.0-8.3 Fin al Performing Location [address] [address]
--- OUTSIDE RECORDS SUMMARY | 2023-06-18 03:45 | External Medical Summary ---
Author Name Unknown Address [facility] [place] [address] Phone Organization K01:[place] [id number] Laboratory Report Ordering Provider Test Date Status ALIX BARFIELD 07/27/2018 11:32:00 Final Observation Date Value Abnormality Reference Status Magnesium 07/28/2018 01:19 1.9 1.5-2.6 Fin al Performing Location [address] [address]
--- OUTSIDE RECORDS SUMMARY | 2023-06-18 03:45 | External Medical Summary ---
Author Name Unknown Address [facility] [place] [address] Phone Organization K01:[place] [address] [place] [address] Laboratory Report Ordering Provider Test Date Status ALIX BARFIELD 07/27/2018 11:32:00 Final Observation Date Value Abnormality Reference Status BUN 07/28/2018 01:19 16 6-20 Fin al Creatinine 07/28/2018 01:19 0.9 0.5-1.0 Fi nal Performing Location [place] [id number]
--- OUTSIDE RECORDS SUMMARY | 2023-06-18 03:45 | External Medical Summary | Summary of Care ---
Author Name Unknown Organization [place] [address] Phone Care Team Providers Care Home Improvement Contractor Name Role Phone Marcela Pinto MD Primary Care Provider [phone] Encounter Details Date Type Department Care Team Description 08/04/2018 Orders Only General Internal Medicine [facility] [address] [place] [address] Marcela Pinto MD 200 [place] [address] [phone] Allergies Active Allergy Reactions Severity Noted Date Comments Valsartan 07/10/2010 Enalapril 05/21/2006 Escitalopram Oxalate Nausea/vomiting 10/11/2009 Nauseated Iodinated Diagnostic Agents Nausea/vomiting 05/2010 IV Contrast Lisinopril 05/21/2006 Metoprolol Tartrate 11/18/2006 Made pulse low [place] Oil-Black Currant-Vit E 07/10/2010 Verapamil 03/21/2004 Bupropion Hcl 10/30/2009 Makes pt sick in the stomach as of this encounter Medications Prescription Sig. Disp. Refills Start Date End Date Status VITAMIN D 1000 UNITS PO TABS one tablet daily 07/27/2012 Active LANCETS MISCIndications:DM type 2, goal [...] Capsule Take 1 Cap by mouth daily. 02/06/2015 Active Glucose Blood (YEIMY COUNTOUR TEST) STRP R73.09/hgba1c 7.2 Tests up to 3 times daily 100 Strip 5 07/18/2015 Active oxygen GAS Use 4 L/min(Oxygen) as directed. Active polyethylene glycol 3350 (MIRALAX) 255 gram [...] MULTIVITAMIN WOMEN) TABS one pill each day 04/21/2017 Active [facility] SENNA 8.6 MG Tablet TAKE 2 TABLETS BY MOUTH EVERY EVENING FOR 10 DAYS NEEDED FOR CONSTIPATION 0 11/26/2017 Active ondansetron ODT (ZOFRAN) 8 MG TBDPIndications:Naus ea DISSOLVE 1 TABLET ON TONGUE EVERY 8 HOURS NEEDED FOR NAUSEA 60 Tab 5 12/16/2017 Active busPIRone (BUSPAR) 15 MG TabletIndications:GA D (generalized anxiety disorder) Take 1 Tab by mouth 2 times a day. 60 Tab 5 03/05/2018 Active atorvaSTATin (LIPITOR) 40 MG TabletIndications:Hy perlipidemia with target LDL less than 100 Take 1 Tab by mouth daily. 30 Tab 5 03/05/2018 Active ferrous sulfate (FEOSOL) 325 (65 FE) [...] MOUTH DAILY 90 Tab 1 03/20/2018 Active RaNITidine HCl 300 MG Tablet Take 0.5 Tabs by mouth at bedtime. 30 Tab 2 04/13/2018 Active DilTIAZem HCl ER Beads 360 MG IN45Epgwpfkovkv:HTN, goal below 130/80 TAKE 1 CAPSULE EVERY [...] Pain, Mild. 120 Tab 0 07/21/2018 Active as of this encounter Active Problems Problem Noted Date Body mass index (BMI) of 40.0 to 44.9 in adult ([facility]) 07/20/2018 Overview: Per Obesity protocol #1 Ischemic colitis ([facility]) 10/01/2017 Lower GI bleed 04/21/2017 Irritable bowel syndrome with constipati on 04/21/2017 Elevated plasma metanephrines 02/20/2017 Type 2 diabetes mellitus with hemoglobin A1c goal of less than 7.5% ([facility]) 02/12/2017 Hypercalcemia 02/12/2017 Controlled substance agreement signed Hyperlipidemia with target LDL less than 100 05/15/2016 Severe obesity with body mas s index (BMI) of 35.0 to 39.9 with serious comorbidity ([facility]) 05/15/2016 Overview: ICD-10 update of inactive diagnosis [...] AHP Diverticulitis of colon 07/25/2011 COPD, moderate ([facility]) 07/19/2011 Overview: Dr Bhatti every 6 months Allergic rhinitis 07/19/2011 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 Asthma with severity to be determined Carpal tunnel syndrome EDEMA dependent, ankles Generalized osteoarthritis ACEI/ARB contraindicated as of this encounter Resolved Problems Problem Noted Date Resolved Date DM (diabetes mellitus), type 2 ([facility]) 08/07/2015 06/25/2017 Nausea 09/05/2012 06/25/2017 Overview: ICD-10 update of inactive term HTN, GOAL BELOW 140/80 06/01/2012 6 Overview: Per HTN Protocol #27. Hypoxemia 10/08/2011 10/30/2015 Genetic Sleep Disorder Research Other*[id number] 07/25/2011 05/15/2016 Obesity, morbid (more than 1 00 lbs over ideal weight or BMI > 40) ([facility]) 01/09/2010 08/19/2017 Overview: Per Obesity Taxonomy HTN, [...] A1c goal of less than 7.0% (HCC) 08/10/2009 12/03/2012 Overview: Per Diabetes Taxonomy. ICD-10 update of inactive term Type 2 diabetes mellitus wit h hemoglobin A1c goal of less than 7.0% (HCC) 08/10/2009 Overview: Per Diabetes Taxonomy. ICD-10 update [...] Assigned at Date Recorded Not on file as of this encounter Plan of Treatment Upcoming Encounters Date Type Specialty Care Team Description 08/12/2018 Nutrition Services Gastroenterology Nita Enriquez, RDN [address] [place] [address] [place] [id number] 08/13/2018 Office Visit Gastroenterology Charles Coello MD 132 [facility] [place] [address] [phone] 08/31/2018 Office Visit Podiatry Chantel Moore DPM [address] [place] [address] [place] [address] [phone] 02/04/2019 Office Visit Internal Medicine Marcela Pinto MD [address] [facility] [id number] 06/01/2019 Imaging Radiology Pending Results Name Priority Associated Diagnoses Date/Ti me FECAL OCCULT BLOOD, EIA (FOBT) Routine 08/03/2018 12:00 AM EDT Health Maintenance Due Date Last [...]
--- OUTSIDE RECORDS SUMMARY | 2023-06-18 03:45 | External Medical Summary ---
Author Name Unknown Address [address] [place] [address] [place] [address] Phone Organization K08:[address] Celio [place] [address] Laboratory Report Ordering Provider Test Date Status ALIX BARFIELD 07/27/2018 11:32:00 Final Observation Date Value Abnormality Reference Status Fasting status - Reported 07/27/2018 11:34 >8 HOURS Final Triglyceride 07/28/2018 01:19 119 <200 Final Performing Location [address] Celio [place] [address]
--- OUTSIDE RECORDS SUMMARY | 2023-06-18 03:45 | External Medical Summary ---
Author Name Unknown Address [facility] [place] [address] Phone Organization K01:[place] [address] [place] [address] Laboratory Report Ordering Provider Test Date Status ALIX BARFIELD 07/27/2018 11:32:00 Final Observation Date Value Abnormality Reference Status LDL, (direct) 07/28/2018 01:19 97 0-129 Final Performing Location [place] [id number]
--- OUTSIDE RECORDS SUMMARY | 2023-06-18 03:45 | External Medical Summary | Summary of Care ---
Author Name Unknown Organization [place] [address] Phone Care Team Providers Care Clothing Pattern Preparer Name Role Phone Marcela Pinto MD Primary Care Provider [phone] Reason for Visit * Reason Comments TEST RESULTS Encounter Details Date Type Department Care Team Description 08/07/2018 Telephone General Internal Medicine [facility] [address] [place] [address] Marcela Pinto MD [address] [place] [address] [phone] TEST RESULTS Allergies Active Allergy Reactions Severity Noted Date Comments Valsartan 07/10/2010 Enalapril 05/21/2006 Escitalopram Oxalate Nausea/vomiting 10/11/2009 Nauseated Iodinated Diagnostic Agents Nausea/vomiting 05/2010 IV Contrast Lisinopril 05/21/2006 Metoprolol Tartrate 11/18/2006 Made pulse low [place] Oil-Black Currant-Vit E 07/10/2010 Verapamil 03/21/2004 Bupropion [...] Active DilTIAZem HCl ER Beads 360 MG [id number]:HTN, goal below 130/80 TAKE 1 CAPSULE EVERY [...] (BMI) of 40.0 to 44.9 in adult ([facility]) 07/20/2018 Overview: Per Obesity protocol #1 Ischemic colitis ([facility]) 10/01/2017 Lower GI bleed 04/21/2017 Irritable bowel syndrome with constipati on 04/21/2017 Elevated plasma metanephrines 02/20/2017 Type 2 diabetes mellitus with hemoglobin A1c goal of less than 7.5% ([facility]) 02/12/2017 Hypercalcemia 02/12/2017 Controlled substance agreement signed Hyperlipidemia with target LDL less than 100 05/15/2016 Severe obesity with body mas s index (BMI) of 35.0 to 39.9 with serious comorbidity ([facility]) 05/15/2016 Overview: ICD-10 update of inactive diagnosis [...] AHP Diverticulitis of colon 07/25/2011 COPD, moderate ([facility]) 07/19/2011 Overview: Dr Bhatti every 6 months Allergic rhinitis 07/19/2011 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 Asthma with severity to be determined Carpal tunnel syndrome EDEMA dependent, ankles Generalized osteoarthritis ACEI/ARB contraindicated as of this encounter Resolved Problems Problem Noted Date Resolved Date DM (diabetes mellitus), type 2 ([facility]) 08/07/2015 06/25/2017 Nausea 09/05/2012 06/25/2017 Overview: ICD-10 update of inactive term HTN, GOAL BELOW 140/80 06/01/2012 6 Overview: Per HTN Protocol #27. Hypoxemia 10/08/2011 10/30/2015 Genetic Sleep Disorder Research Other*[id number] 07/25/2011 05/15/2016 Obesity, morbid (more than 1 00 lbs over ideal weight or BMI > 40) ([facility]) 01/09/2010 08/19/2017 Overview: Per Obesity Taxonomy HTN, [...] Not on file as of this encounter Miscellaneous Notes * Telephone Encounter - Renetta Gu LPN - 08/09/2018 10:52 AM EDT Patient is aware and will comply. Thank you * Telephone Encounter - Renetta Gu LPN - 08/07/2018 3:38 PM EDT Called, unable to leave a message. Will continue to call. Currently takes the iron tablet with vitamin C every other day Thank you * Telephone Encounter - Renetta Gu LPN - 08/07/2018 3:36 PM EDT ----- Message from Marcela Pinto MD sent at 08/06/2018 3:58 PM EDT ----- Fecal occult blood is positive and last hemoglobin is around 10. Patient had a colonoscopy done in February of this year and had internal hemorrhoids and multiple diverticula. She has an appointment with Dr. Coello next month and she should keep it for further discussion. Advised on taking satl-apr-dvmyshl ferrous sulfate 325 mg orally 1 tablet every other day along with vitamin-C. Repeat CBC, B12, ferritin, TIBC in 3 months from now. in this encounter Plan of Treatment Upcoming Encounters Date Type Specialty Care Team Description 08/13/2018 [facility] Visit [facility] [address] [facility] [address] [phone] 08/31/2018 Office Visit Podiatry Chantel Moore DPM [address] [place] [address] [place] [id number] 09/08/2018 Nutrition Services Gastroenterology Nita Enriquez RDN [address] [place] [address] [place] [address] [phone] 02/04/2019 Office Visit Internal Medicine [facility] Pinto MD [address] [facility] [address] [phone] 06/01/2019 Imaging Radiology Scheduled Tests Name Priority Associated Diagnoses Order S chedule CBC Routine Low hemoglobin Heme positive stool Abnormal CBC Expected: 11/07/2018 (Approximate), Expires: 08/07/2019 VITAMIN B12 Routine Deficiency of other specified B group vitamins Low hemoglobin Heme positive stool Abnormal CBC Type 2 diabetes mellitus with hemoglobin A1c goal of less than 7.5% (HCC) Hypercalcemia Lower GI bleed Expected: 11/07/2018 (Approximate), Expires: 08/07/2019 FERRITIN Routine Low hemoglobin Heme positive stool Abnormal CBC Expected: 11/07/2018 (Approximate), Expires: 08/07/2019 IRON SCREEN, INCLUDING TIBC Routine Low hemoglobin Heme positive stool Abnormal CBC Expected: 11/07/2018 (Approximate), Expires: 08/07/2019 Health Maintenance Due Date Last Done Comments [...] fileas of this encounter Visit Diagnoses Diagnosis Low hemoglobin - Primary Anemia, unspecified Heme positive stool Nonspecific abnormal finding in stool contents Abnormal CBC Other abnormal blood chemistry Type 2 diabetes mellitus wit h hemoglobin A1c goal of less than 7.5% (HCC) Hypercalcemia Lower GI bleed Hemorrhage of gastrointestinal tract, unspecified Deficiency of other specifie d B group vitamins in this encounter
--- OUTSIDE RECORDS SUMMARY | 2023-06-18 03:45 | External Medical Summary | Summary of Care ---
Author Name Unknown Organization [place] [address] Phone Care Team Providers Care Junior Systems Analyst Name Role Phone Alex Pinto MD Primary Care Provider [phone] Reason for Visit * Reason Comments eRx-Medication Refill Encounter Details Date Type Department Care Team Description 08/08/2018 Refill General Internal Medicine [facility] [address] [place] [address] Alex Pinto MD [address] [place] [address] [phone] Hyperlipidemia with target LDL less than 100* [...] 1000 UNITS PO TABS one tablet daily 2 Active LANCETS MISCIndications:DM type 2, goal [...] Capsule Take 1 Cap by mouth daily. 5 Active Glucose Blood (YEIMY COUNTOUR TEST) [...] MULTIVITAMIN WOMEN) TABS one pill each day 7 Active [facility] SENNA 8.6 MG Tablet TAKE 2 TABLETS BY MOUTH EVERY EVENING FOR 10 DAYS NEEDED FOR CONSTIPATION 0 8 Active ondansetron ODT (ZOFRAN) 8 MG TBDPIndications:David sea DISSOLVE 1 TABLET ON TONGUE EVERY 8 HOURS NEEDED FOR NAUSEA 60 Tab 5 8 Active busPIRone (BUSPAR) 15 MG TabletIndications:G AD (generalized anxiety disorder) Take 1 Tab by mouth 2 times a day. 60 Tab 5 8 Active ferrous sulfate (FEOSOL) 325 (65 FE) MG Tablet Every other day 60 Tab 11 8 Active glimepiride (AMARYL) 4 MG TabletIndications:T ype 2 diabetes mellitus with hemoglobin A1c goal of less than 7.5% ([facility]) TAKE 1 TABLET BY MOUTH IN THE MORNING AND 1/2 TABLET BY MOUTH IN THE EVENING 135 Tab 1 8 Active KLOR-CON M20 20 MEQ TBCRIndications:HTN , goal below 140/90 TAKE 1 TABLET BY MOUTH DAILY 90 Tab 1 8 Active RaNITidine HCl 300 MG Tablet Take 0.5 Tabs by mouth at bedtime. 30 Tab 2 8 Active DilTIAZem HCl ER Beads 360 MG JY75Wqaoolnaknp:HTN , goal below 130/80 TAKE 1 CAPSULE [...] FOR EDEMA 30 Tab 11 8 Active dicyclomine (BENTYL) 20 MG TabletIndications:C hronic constipation TAKE 1 TABLET BY MOUTH EVERY DAY 90 Tab 0 8 Active COMBIVENT RESPIMAT 20-100 MCG/ACT InhalerIndications: [...] EVERY DAY 30 Tab 11 8 Active atorvaSTATin (LIPITOR) 40 MG TabletIndications:H yperlipidemia with target LDL less than 100 Take 1 Tab by mouth daily. 30 Tab 5 8 08/08/20 18 Discontinued as of this encounter Active Problems Problem Noted Date Body mass index (BMI) of 40.0 to 44.9 in adult ([facility]) 07/20/2018 Overview: Per Obesity protocol #1 Ischemic colitis ([facility]) 10/01/2017 Lower GI bleed 04/21/2017 Irritable bowel syndrome with constipati on 04/21/2017 Elevated plasma metanephrines 02/20/2017 Type 2 diabetes mellitus with hemoglobin A1c goal of less than 7.5% ([facility]) 02/12/2017 Hypercalcemia 02/12/2017 Controlled substance agreement signed Hyperlipidemia with target LDL less than 100 05/15/2016 Severe obesity with body mas s index (BMI) of 35.0 to 39.9 with serious comorbidity ([facility]) 05/15/2016 Overview: ICD-10 update of inactive diagnosis [...] AHP Diverticulitis of colon 07/25/2011 COPD, moderate ([facility]) 07/19/2011 Overview: Dr Bhatti every 6 months Allergic rhinitis 07/19/2011 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 Asthma with severity to be determined Carpal tunnel syndrome EDEMA dependent, ankles Generalized osteoarthritis ACEI/ARB contraindicated as of this encounter Resolved Problems Problem Noted Date Resolved Date DM (diabetes mellitus), type 2 ([facility]) 08/07/2015 06/25/2017 Nausea 09/05/2012 06/25/2017 Overview: ICD-10 update of inactive term HTN, GOAL BELOW 140/80 06/01/2012 6 Overview: Per HTN Protocol #27. Hypoxemia 10/08/2011 10/30/2015 Genetic Sleep Disorder Research Other*[id number] 07/25/2011 05/15/2016 Obesity, morbid (more than 1 00 lbs over ideal weight or BMI > 40) ([facility]) 01/09/2010 08/19/2017 Overview: Per Obesity Taxonomy HTN, [...] less than 7.0% ([facility]) 08/10/2009 12/03/2012 Overview: Per Diabetes Taxonomy. ICD-10 update of inactive term Type 2 diabetes mellitus wit h hemoglobin A1c goal of less than 7.0% ([facility]) 08/10/2009 Overview: Per Diabetes Taxonomy. ICD-10 update [...] Telephone Encounter - Alex Pinto MD - 08/10/2018 11:19 AM EDT Signed Prescriptions: Disp Refills atorvaSTATin (LIPITOR) 40 MG Tablet 30 Tab 11 Sig: TAKE 1 TABLET BY MOUTH EVERY DAY Authorizing Provider: ALEX PINTO * Telephone Encounter - Nicole Saeed LPN - 08/10/2018 8:04 AM EDT Pending Prescriptions: Disp Refills atorvaSTATin (LIPITOR) 40 MG Tablet [Phar*30 Tab 11 Sig: TAKE 1 TABLET BY MOUTH EVERY DAY * Telephone Encounter - Nicole Saeed LPN - 08/10/2018 8:03 AM EDT Formatting of this note may be different from the original. Pending Prescriptions: Disp Refills atorvaSTATin (LIPITOR) 40 MG Tablet [Phar*30 Tab 11 Sig: TAKE 1 TABLET BY MOUTH EVERY DAY Last Office Visit: 07/23/2018 Next Office Visit: 02/04/2019 Scheduled Provider(s): Alex Pinto MD Last date the medication was ordered: 03/05/18 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 COPD, moderate (HCC) J44.9 Allergic rhinitis J30.9 Diverticulitis of colon K57.32 Nocturnal hypoxia G47.34 Sleep apnea, obstructive G47.33 Incisional hernia K43.2 ACEI/ARB contraindicated [id number] HTN, goal below 140/90 I10 Hyperlipidemia with target LDL less than 100 E78.5 Severe obesity with body mass index (BMI) of 35.0 to 39.9 with serious comorbidity ([facility]) E66.01 Controlled substance agreement signed Z79.899 Type 2 diabetes mellitus with hemoglobin A1c goal of less than 7.5% ([facility]) E11.9 Hypercalcemia E83.52 Elevated plasma metanephrines R79.89 Lower GI bleed K92.2 Irritable bowel syndrome with constipation K58.1 Ischemic colitis ([facility]) K55.9 Body mass index (BMI) of 40.0 to 44.9 in adult ([facility]) Z68.41 Labs: CREATININE, RD URINE(mg/dL) Jessica Dt/Tm [...] FINAL 01/14/18 12:03P 01/14/18 6.2 FINAL HEMOGLOBIN, O2T-SMYRQCV LAB(%) Jessica Dt/Tm Resulted Value Status 11/20/17 11/21/17 6.3 FINAL in this encounter Plan of Treatment Upcoming Encounters Date Type Specialty Care Team Description 08/13/2018 Office Visit Gastroenterology Charles Coello MD [address] [place] [address] 08/31/2018 Office Visit Podiatry Chantel Moore DPM [address] [place] [address] [place] [address] 09/08/2018 Nutrition Services Gastroenterology Nita Enriquez RDN [address] [place] [address] [place] [address] 02/04/2019 Office Visit Internal Medicine Alex Pinto MD [address] [place] [address] [phone] 06/01/2019 Imaging Radiology Health Maintenance Due Date [...] encounter Visit Diagnoses Diagnosis Hyperlipidemia with target L DL less than 100 - Primary Other and unspecified hyperlipidemia in this encounter
--- OUTSIDE RECORDS SUMMARY | 2023-06-18 03:45 | External Medical Summary ---
Author Name Unknown Address [facility] [place] [address] Phone Organization K01:[place] [address] [place] [id number] Laboratory Report Ordering Provider Test Date Status ALIX BARFIELD 07/27/2018 11:32:00 Final Observation Date Value Abnormality Reference Status HbA1C 07/28/2018 01:53 6.8 Above high normal 4.0-5 .6 Final Performing Location [place] [address] [place] [id number]
--- OUTSIDE RECORDS SUMMARY | 2023-06-18 03:45 | External Medical Summary | Summary of Care ---
Author Name Unknown Organization [place] [address] Phone Care Team Providers Care Title Lawyer Name Role Phone Marcela Pinto MD Primary Care Provider [phone] Reason for Visit * Reason Comments case management Encounter Details Date Type Department Care Team Description 07/23/2018 [facility] [address] [place] [address] Cici Gama, BIJAL [address] [place] [address] [place] [address] Medical home patient encounter*;COPD, moderate (HCC);Asthma with severity to be determined;Generalized osteoarthritis;Severe obesity with body mass index (BMI) of 35.0 to 39.9 with serious comorbidity (HCC);Type 2 diabetes mellitus with hemoglobin A1c goal of less than 7.5% (HCC);HTN, goal below 140/90;Irritable bowel syndrome with constipation;Ischemic colitis ([facility]) Allergies Active Allergy Reactions Severity Noted Date Comments Valsartan 07/10/2010 Enalapril 05/21/2006 Escitalopram Oxalate Nausea/vomiting 10/11/2009 Nauseated Iodinated Diagnostic Agents Nausea/vomiting 05/2010 IV Contrast Lisinopril 05/21/2006 Metoprolol Tartrate 11/18/2006 Made pulse low [place] Oil-Black Currant-Vit E 07/10/2010 Verapamil 03/21/2004 Bupropion [...] Active DilTIAZem HCl ER Beads 360 MG [id number]:HTN, goal below 130/80 TAKE 1 CAPSULE EVERY [...] 44.9 in adult ([facility]) 07/20/2018 Overview: Per Obesity protocol #1 Ischemic colitis ([facility]) 10/01/2017 Lower GI bleed 04/21/2017 Irritable bowel syndrome with constipati on 04/21/2017 Elevated plasma metanephrines 02/20/2017 Type 2 diabetes mellitus with hemoglobin A1c goal of less than 7.5% ([facility]) 02/12/2017 Hypercalcemia 02/12/2017 Controlled substance agreement signed Hyperlipidemia with target LDL less than 100 05/15/2016 Severe obesity with body mas s index (BMI) of 35.0 to 39.9 with serious comorbidity ([facility]) 05/15/2016 Overview: ICD-10 update of [...] AHP Diverticulitis of colon 07/25/2011 COPD, moderate ([facility]) 07/19/2011 Overview: Dr Bhatti every 6 months Allergic rhinitis 07/19/2011 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 Asthma with severity to be determined Carpal tunnel syndrome EDEMA dependent, ankles Generalized osteoarthritis ACEI/ARB contraindicated as of this encounter Resolved Problems Problem Noted Date Resolved Date DM (diabetes mellitus), type 2 ([facility]) 08/07/2015 06/25/2017 Nausea 09/05/2012 06/25/2017 Overview: ICD-10 update of inactive term HTN, GOAL BELOW 140/80 06/01/2012 6 Overview: Per HTN Protocol #27. Hypoxemia 10/08/2011 10/30/2015 Genetic Sleep Disorder Research Other*[id number] 07/25/2011 05/15/2016 Obesity, morbid (more than 1 00 lbs over ideal weight or BMI > 40) ([facility]) 01/09/2010 08/19/2017 Overview: Per Obesity [...] less than 7.0% ([facility]) 08/10/2009 12/03/2012 Overview: Per Diabetes Taxonomy. ICD-10 update of inactive term Type 2 diabetes mellitus wit h hemoglobin A1c goal of less than 7.0% ([facility]) 08/10/2009 Overview: Per Diabetes Taxonomy. ICD-10 update [...] Not on file as of this encounter Progress Notes * Cici Gama RN - 07/23/2018 1:52 PM EDT Case Management Assessment - Follow Up Assessment Is this call for a [place], [place] [facility] or rehab facility discharge to home? No S: Reports: Weight gain: Weight increased 12 lbs since April. -today's weight, in clinic, was 245 lbs 9 oz. Increased edema: peripheral edema: feet/ankles Chest pain - denies Increased shortness of breath: denies at rest cough denies dyspnea with daily activities and with light housework (ie-dusting, making the bed, climbing the stairs) oxygen concentrator and 4L-sleep Chills / Sweats / Fever: temperature of 97.6, denies chills/sweats and denies fever Fall: denies any falls since last Care Management encounter assistive device:none Appetite: "I eat too much." "I'm gaining weight." denies nausea, vomiting, burning, decreased appetite Bowel: stools dark/black. Taking iron supplement. constipation. "I have to take something to help them out every day." Bladder: denies problems -"occasional" stress incontinence. -wears pad "just in case". Medications: takes meds as ordered most of the time and denies side effects Chronic Pain: neck, shoulders L>r, and lower back -denies pain in hips or knees Does Patient have Type 2 DM ? Yes. Does this patient take sulfonylureas and/or basal insulin? Yes. 1. Do you know what the symptoms of hypoglycemia are? yes 2. How often can you tell by your symptoms if your blood sugar is low? Always 3. In a typical week, how many times will your blood sugar go below 70 mg/dL? Never -checks blood sugars 3 x day, using [email or web address] Textbook Time Contour glucometer -Random BS this morning was 168. Forget to check it before she ate her breakfast. Blood Pressure: at today's office visit was 126/66, pulse 64. Sleep: has difficulty "more nights than not". -feels tired, goes to bed, lays there awake - so then turns on the TV O: Office visit for 3 month case management follow up. Met with patient prior to PCP appointment. Alert, oriented, pleasant. Not active with home health. Lives alone in one story house. Roof leaks. Smells musty. So bad, it can't be fixed. Son putting a trailer on the property for her - actually in the process. Address and phone number will stay the same. Medications: takes meds as prescribed most of the time and denies side effects -using nebulizer and inhalers as ordered. -med rec completed by office visit nurse, Renetta Cavazos LPN. -[facility] [place]. -did not take her "fluid pill" today as she was coming to the doctor's. -manages her own medications A: Patient Centered Prioritized Goals: Patient will have pain well managed. Exacerbations have been prevented, minimized or reduced in severity. Co-morbid conditions identified and managed. Patient will have an AD completed and on file with PCP. Identified Barriers: Lack of or limited access to reliable transportation, Lack of motivation and Older than 70 years FUNCTIONAL STATUS: (Definition - assess ability to patient to manage their own care, includes evaluation of activities of daily living, and instrumental activities of daily living, and cognitive abilities status) ADL'S - Needs Assistance With: N/A as pt is independent IADL'S - Needs Assistance With: Grocery Shopping, Transportation Cognitive and Mental Health: denies problems, alert and oriented x 3 and able to communicate, understand instructions, process information. P: Bowstring Maker Interventions: Reinforce Self Management Action Plan established at previous visit Reinforced "call back instructions" if symptoms increase Updated managing provider Reinforced sodium restriction related to dx of HTN Reinforced CHO consistency related to dx of type 2 diabetes Reinforced safety education / fall prevention Reinforced medication regimen - timing / dosing / purpose Instructed if she has a regular activity that she knows causes dyspnea - such as walking up stairs - try taking 2 puffs on rescue inhaler prior to going up the stairs. Discussed Advance Directives: patient already completed a Living Will in the recent past. She will have her daughter help her find it, and bring it in so copy can be made for chart/PCP. Confirmed upcoming appointments with gastro, podiatry, weight management, and PCP. Reinforced role of residential case manager. Encouraged to call with any issues or concerns. Gave direct phone number and contact information. PLAN For new or uncontrolled pain - call CM or PCP For increased SOB, cough, congestion - use inhalers/nebulizer as ordered - if no relief/improvement- call CM or PCP For noted blood in stools, more than 5 watery stools aramis day, or no BM x 3 days - call CM or PCP. PCP Notified of enrollment in CM/HM program: No. Notified previously. SNP Member? No Re-evaluation of plan of care and progress towards goals achievement: A1c at goal of <7.5. Taking meds as ordered, keeps appointments as scheduled. Pain managed. BP at goal of <140/90. Has a completed Living Will and bring us a copy. Checks blood sugars 3 x day. Plan to call patient in 3 months to reassess and update plan of care, instructed to call Bowstring Maker or Primary Care Provider with change in symptoms or as needed before next follow-up, verbalizes understanding and agrees with plan. Cici Gama RN Outpatient Bowstring Maker in this encounter Plan of Treatment Upcoming Encounters Date Type Specialty Care Team Description 08/13/2018 [facility] Visit [facility] [address] [facility] [address] [phone] 08/31/2018 Office Visit Podiatry Chantel Moore DPM [address] [place] [address] [place] [id number] 09/08/2018 Nutrition Services Gastroenterology Nita Enriquez RDN [address] [place] [address] [place] [id number] 02/04/2019 Office Visit Internal Medicine Marcela Pinto MD [address] [facility], [place] [id number] 06/01/2019 Imaging Radiology Health Maintenance Due Date [...] fileas of this encounter Visit Diagnoses Diagnosis Medical home patient encount er - Primary Other specified examination COPD, moderate (HCC) Chronic airway obstruction, not elsewhere classified Asthma with severity to be d etermined Generalized osteoarthritis Generalized osteoarthrosis, unspecified site Severe obesity with body mas s index (BMI) of 35.0 to 39.9 with serious comorbidity (HCC) Type 2 diabetes mellitus wit h hemoglobin A1c goal of less than 7.5% (HCC) HTN, goal below 140/90 Unspecified essential hypertension Irritable bowel syndrome wit h constipation Irritable bowel syndrome Ischemic colitis (HCC) Unspecified vascular insufficiency of intestine in this encounter
--- OUTSIDE RECORDS SUMMARY | 2023-06-18 03:45 | External Medical Summary ---
Author Name Unknown Address [facility] [place] [address] Phone Organization K01:[place] [address] Laboratory Report Ordering Provider Test Date Status ALIX BARFIELD 07/27/2018 11:32:00 Final Observation Date Value Abnormality Reference Status TSH 07/28/2018 01:59 0.42 0.27-4.2 Fin al Performing Location [address] [address]
--- OUTSIDE RECORDS SUMMARY | 2023-06-18 03:45 | External Medical Summary ---
Author Name Unknown Address [facility] [place] [address] Phone Organization K01:[place] [address] [place] [id number] Laboratory Report Ordering Provider Test Date Status ALIX BARFIELD 07/27/2018 11:32:00 Final Observation Date Value Abnormality Reference Status T4, Free 07/28/2018 01:59 1.29 0.9-1.7 Fin al Performing Location [place] [id number]
--- OUTSIDE RECORDS SUMMARY | 2023-06-18 03:46 | External Medical Summary | Summary of Care ---
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 Name Role Phone Marcela Pinto MD Primary Care Provider Reason for Visit * Reason Comments FOLLOW UP Encounter Details Date Type Department Care Team Description 07/23/2018 Office Visit General Internal Medicine [facility] [address] [place] [address] Marcela Pinto MD [address] [place] [id number] [phone] Type 2 diabetes mellitus with hemoglobin A1c goal of less than 7.5% (HCC)*;Hyperlipidemia with target LDL less than 100;COPD, moderate (HCC);Asthma with severity to be determined;Generalized osteoarthritis Allergies Active Allergy Reactions Severity Noted [...] Active DilTIAZem HCl ER Beads 360 MG QM75Qdmbocqzdjp:HTN, goal below 130/80 TAKE 1 CAPSULE EVERY [...] this encounter Active Problems Problem Noted Date Ischemic colitis ([facility]) 10/01/2017 Lower GI bleed 04/21/2017 Irritable bowel syndrome with constipati on 04/21/2017 Elevated plasma metanephrines 02/20/2017 Type 2 diabetes mellitus with hemoglobin A1c goal of less than 7.5% ([facility]) 02/12/2017 Hypercalcemia 02/12/2017 Controlled substance agreement signed Hyperlipidemia with target LDL less than 100 05/15/2016 Obesity, Class II, BMI 35.0-39.9, with c omorbidity (see actual BMI) 05/15/2016 HTN, goal below 140/90 12/18/2015 Overview: [...] Hypoxemia 10/08/2011 10/30/2015 Genetic Sleep Disorder Research Other*[id number] 07/25/2011 05/15/2016 Obesity, morbid (more than 1 [...] of less than 7.0% ([facility]) 08/10/2009 12/03/2012 Overview: Per Diabetes Taxonomy. ICD-10 update of inactive term Type 2 diabetes mellitus wit h hemoglobin A1c goal of less than 7.0% ([facility]) 08/10/2009 Overview: Per Diabetes Taxonomy. [...] Not on file as of this encounter Last Filed Vital Signs Vital Sign Reading Time Taken Blood Pressure 126/66 07/23/2018 1:44 PM EDT Pulse 64 07/23/2018 1:44 PM EDT Temperature 36.4 C (97.6 F) 07/23/2018 1 :44 PM EDT Respiratory Rate 16 07/23/2018 1:44 PM EDT Oxygen Saturation - - Inhaled Oxygen Concentration - - Weight 111.4 kg (245 lb 9.6 oz) 018 1:44 PM EDT Height 165.1 cm (5' 5") 07/23/2018 1:44 PM EDT Body Mass Index 40.87 07/23/2018 1:44 PM EDT in this encounter Progress Notes * Marcela Pinto MD - 07/23/2018 1:58 PM EDT Formatting of this note may be different from the original. HPI:Nina Harrington is a 77 year old female with medical problems as listed below including Asthma, HTN, COPD, uses oxygen 4 liter at night, Sleep apnoea , not on any CPAP machine,DM who presents with: Chief Complaint Patient presents with FOLLOW UP 1. States has multiple joint pains, neckpain, discussed taking caltrate D daily. Pt walks regulalry. 2.Hx of Asthma and copd and sees [facility] . Pt wants to discuss starting singular with them. Uses inahaler reguallry. 3. Hx of DM, takes Amaryl. Hemoglobin AIC Results: HEMOGLOBIN, A1C(%) Jessica Dt/Tm Resulted Value Status 01/14/18 12:03P 01/14/18 6.2 FINAL HEMOGLOBIN, [id number] LAB(%) Jessica Dt/Tm Resulted Value Status 11/20/17 11/21/17 6.3 FINAL HEMOGLOBIN, A1C(%) Jessica Dt/Tm Resulted Value Status 05/19/17 12:11P 05/19/17 5.[address] Meza. 5. Has sleep apnoea, uses oxygen 4 liter at night, not Cpap machine. No urinary s/s. No chestpain or new sob. No anxiety or depression. 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 COPD, moderate (HCC) J44.9 Allergic rhinitis J30.9 Diverticulitis of colon K57.32 Nocturnal hypoxia G47.34 Sleep apnea, obstructive G47.33 Incisional hernia K43.2 ACEI/ARB contraindicated [id number] HTN, goal below 140/90 I10 Hyperlipidemia with target LDL less than 100 E78.5 Obesity, Class II, BMI 35.0-39.9, with comorbidity (see actual BMI) [id number] Controlled substance agreement signed Z79.899 Type 2 diabetes mellitus with hemoglobin A1c goal of less than 7.5% (HCC) E11.9 Hypercalcemia E83.52 Elevated plasma metanephrines R79.89 Lower GI bleed K92.2 Irritable bowel syndrome with constipation K58.1 Ischemic colitis (HCC) K55.9 Current Outpatient Prescriptions Medication Sig Dispense Refill HYDROcodone-acetaminophen 5-325 mg [...] BY MOUTH EVERY DAY 90 Tab 0 furosemide (LASIX) 40 MG Tablet TAKE 1 [...] by mouth at bedtime. 30 Tab 2 glimepiride (AMARYL) 4 MG Tablet TAKE 1 TABLET BY MOUTH IN THE MORNING AND 1/2 TABLET BY MOUTH IN THE EVENING 135 Tab 1 KLOR-CON M20 20 MEQ TBCR TAKE 1 TABLET BY MOUTH DAILY 90 Tab 1 atorvaSTATin (LIPITOR) 40 MG Tablet Take 1 Tab by mouth daily. 30 Tab 5 busPIRone (BUSPAR) 15 MG Tablet Take 1 Tab by mouth 2 times a day. 60 Tab 5 ferrous sulfate (FEOSOL) 325 (65 FE) MG [...] Tab 3 Glucose Blood (YEIMY CONTOUR TEST) STR USE [...] as directed. 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 OBJECTIVE: BP 126/66 | Pulse 64 | Temp (Src) 97.6 (Tympanic) | Resp 16 | Ht 5' 5" (1.651m) | Wt 245 lbs 9.6 oz(111.403kg) | BMI 40.87 kg/m | BSA 2.26 m PHYSICAL EXAM: HEENT: PERRLA, EOMI, anicteric sclera,, no pharyngeal erythema, no lymphadenopathy, neck supple CVS: RRR, no murmurs, rubs or gallops, s1 s 2normal. RESP: clear to auscultation, occasiaonl wheezing , no crackles ABD: soft, NT/ND EXT: no edema, cyanosis, peripheral pulses palpable bilaterally No large joint swelling, no redness, range of motion normal. Skin normal. Gait normal. Mood stable No focal weakness ASSESSMENT AND PLAN: E11.9 Type 2 diabetes mellitus with hemoglobin a1c goal of less than 7.5% ([facility]) (primary encounter diagnosis) Plan: Lab: 1. Albumin / creatinine ratio, urine Future expected: 07/23/2018 2. Hemoglobin a1c Future expected: 07/23/2018 3. Lipid panel with direct ldl if tg above 400 mg/dl Future expected: 07/23/2018 4. Compr metab panel Future expected: 07/23/2018 On Amaryl. Diet discussed. E78.5 Hyperlipidemia with target ldl less than 100 Low fat diet, on statin. J44.9 Copd, moderate (hcc) Continue current inhalers. J45.909 Asthma with severity to be determined Well controlled. M15.9 Generalized osteoarthritis Vicodin as needed. in this encounter Nursing Notes * Renetta Gu, NICOL - 07/23/2018 1:41 PM EDT Here for follow up, would like to discuss starting singular. in this encounter Plan of Treatment Upcoming Encounters Date Type Specialty Care Team Description 07/30/2018 Office Visit Podiatry Chantel Moore, DPM [address] [place] [address] [place] [address] 08/12/2018 Nutrition Services Gastroenterology Nita Enriquez, AKIKO [address] [place] [place] [address] 06/01/2019 Imaging Radiology Scheduled Tests Name Priority Associated Diagnoses Order S chedule ALBUMIN / CREATININE RATIO, URINE Routine Type 2 diabetes mellitus with hemoglobin A1c goal of less than 7.5% (HCC) Expected: 07/23/2018 (Approximate), Expires: 07/23/2019 HEMOGLOBIN A1C Routine Type 2 diabetes mellitus with hemoglobin A1c goal of less than 7.5% (HCC) Expected: 07/23/2018 (Approximate), Expires: 07/23/2019 LIPID PANEL WITH DIRECT LDL IF TG ABOVE 400 MG/DL Routine Type 2 diabetes mellitus with hemoglobin A1c goal of less than 7.5% (HCC) Expected: 07/23/2018 (Approximate), Expires: 07/23/2019 COMPR METAB PANEL Routine Type 2 diabetes mellitus with hemoglobin A1c goal of less than 7.5% (HCC) Expected: 07/23/2018 (Approximate), Expires: 07/23/2019 Health Maintenance Due Date Last Done Comments DIABETES-HGBA1C EVERY 6 MONTHS 07/16/2018 0 01/14/2018, 11/20/2017, 05/19/2017, Additional history exists DIABETES-EYE EXAM 08/04/2018 08/04/2017, , 09/23/2011, Additional history exists DIABETES-FOOT EXAM 01/16/2019 01/16/2018, 0 11/15/2016, 02/23/2016, Additional history exists DIABETES-URINE MICROALBUMIN EVERY 12 MONTHS 03/15/2019 03/15/2018, 11/20/2017, 05/19/2017, Additional history exists DXA-EVERY 5 YRS-USE SMARTSET [...] Visit Diagnoses Diagnosis Type 2 diabetes mellitus wit h hemoglobin A1c goal of less than 7.5% (HCC) - Primary Hyperlipidemia with target L DL less than 100 Other and unspecified hyperlipidemia COPD, moderate (HCC) Chronic airway obstruction, not elsewhere classified Asthma with severity to be d etermined Generalized osteoarthritis Generalized osteoarthrosis, unspecified site in this encounter
--- OUTSIDE RECORDS SUMMARY | 2023-06-18 03:46 | External Medical Summary | Summary of Care ---
Author Name Unknown Organization [place] [address] Phone Care Team Providers Care Wooden Tank Erector Name Role Phone Marcela Pinto MD Primary Care Provider [phone] Reason for Visit * Reason Comments eRx-Medication Refill Encounter Details Date Type Department Care Team Description 07/01/2018 Refill General Internal Medicine [facility] [address] [place] [address] Marcela Pinto MD [address] [place] [address] [phone] COPD, moderate ([facility])*;Asthma with severity to be determined Allergies Active Allergy Reactions Severity Noted Date Comments Valsartan 07/10/2010 Enalapril 05/21/2006 Escitalopram Oxalate Nausea/vomiting 10/11/2009 Nauseated Iodinated Diagnostic Agents Nausea/vomiting 05/2010 IV Contrast Lisinopril 05/21/2006 Metoprolol Tartrate 11/18/2006 Made pulse low [place] Oil-Black Currant-Vit E 07/10/2010 Verapamil 03/21/2004 [...] TABS one pill each day 7 Active albuterol sulfate (PROVENTIL) (2.5 MG/3ML) 0.083% nebulizer solutionIndications :Asthma with severity to be determined,COPD, moderate ([facility]) USE ONE NEBULIZER TREATMENT TWICE A DAY NEEDED FOR WORSENING ASTHMA. J45.909, J44.9 225 mL 1 7 Active [facility] SENNA 8.6 MG Tablet TAKE 2 TABLETS BY MOUTH EVERY EVENING FOR 10 DAYS NEEDED FOR CONSTIPATION 0 8 Active ondansetron ODT (ZOFRAN) 8 MG TBDPIndications:David sea DISSOLVE 1 TABLET ON TONGUE EVERY 8 HOURS NEEDED FOR NAUSEA 60 Tab 5 8 Active zafirlukast (ACCOLATE) 20 MG TabletIndications:A sthma with severity to be determined TAKE 1 TABLET EVERY DAY 90 Tab 1 8 Active busPIRone (BUSPAR) 15 MG TabletIndications:G AD (generalized anxiety disorder) Take 1 Tab by mouth 2 times a day. 60 Tab 5 8 Active atorvaSTATin (LIPITOR) 40 MG TabletIndications:H yperlipidemia with target LDL less than 100 Take 1 Tab by mouth daily. 30 Tab 5 8 Active ferrous sulfate (FEOSOL) [...] Active DilTIAZem HCl ER Beads 360 MG TQ51Eorpyhgfmzq:HTN , goal below 130/80 TAKE 1 CAPSULE [...] Pain, Mild. 120 Tab 0 8 Active COMBIVENT RESPIMAT 20-100 MCG/ACT InhalerIndications: Asthma with severity to be determined,COPD, moderate (HCC) TAKE 1 PUFF BY MOUTH 4 TIMES A DAY 4 g 11 8 Active COMBIVENT RESPIMAT 20-100 MCG/ACT InhalerIndications: Asthma with severity to be determined,COPD, moderate (HCC) TAKE 1 PUFF BY MOUTH 4 TIMES A DAY 1 Inhaler 5 8 07/01/20 18 Discontinued as of this encounter Active Problems Problem Noted Date Ischemic colitis ([facility]) 10/01/2017 Lower GI [...] Hypoxemia 10/08/2011 10/30/2015 Genetic Sleep Disorder Research Other*[id number] 07/25/2011 05/15/2016 Obesity, morbid (more than 1 [...] goal of less than 7.0% ([facility]) 08/10/2009 12/03/2012 Overview: Per Diabetes Taxonomy. ICD-10 update of inactive term Type 2 diabetes mellitus wit h hemoglobin A1c goal of less than 7.0% ([facility]) 08/10/2009 Overview: Per Diabetes Taxonomy. ICD-10 update [...] Telephone Encounter - Marcela Pinto MD - 07/02/2018 9:47 AM EDT Signed Prescriptions: Disp Refills COMBIVENT RESPIMAT 20-100 MCG/ACT Inhaler 4 g 11 Sig: TAKE 1 PUFF BY MOUTH 4 TIMES A DAY Authorizing Provider: MARCELA PINTO * Telephone Encounter - Nicole Saeed LPN - 07/02/2018 8:43 AM EDT Pending Prescriptions: Disp Refills COMBIVENT RESPIMAT 20-100 MCG/ACT Inhaler*4 g 11 Sig: TAKE 1 PUFF BY MOUTH 4 TIMES A DAY * Telephone Encounter - Nicole Saeed LPN - 07/02/2018 8:39 AM EDT Formatting of this note may be different from the original. Pending Prescriptions: Disp Refills COMBIVENT RESPIMAT 20-100 MCG/ACT Inhaler*4 g 11 Sig: TAKE 1 PUFF BY MOUTH 4 TIMES A DAY Last Office Visit: 06/16/2018 Next Office Visit: 07/23/2018 Scheduled Provider(s): Marcela Pinto MD Last date the medication was ordered: 02/03/18 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 COPD, moderate ([facility]) J44.9 Allergic rhinitis J30.9 Diverticulitis of colon K57.32 Nocturnal hypoxia G47.34 Sleep apnea, obstructive G47.33 Incisional hernia K43.2 ACEI/ARB contraindicated [id number] HTN, goal below 140/90 I10 Hyperlipidemia with target LDL less than 100 E78.5 Obesity, Class II, BMI 35.0-39.9, with comorbidity (see actual BMI) E66.9 Controlled substance agreement signed Z79.899 Type 2 diabetes mellitus with hemoglobin A1c goal of less than 7.5% ([facility]) E11.9 Hypercalcemia E83.52 Elevated plasma metanephrines R79.89 Lower GI bleed K92.2 Irritable bowel syndrome with constipation K58.1 Ischemic colitis ([facility]) K55.9 Labs: CREATININE-OUTSIDE LAB(MG/DL) Jessica Dt/Tm Resulted Value Status 03/15/18 03/17/18 0.95 FINAL POTASSIUM-OUTSIDE LAB(MMOL/L) Jessica Dt/Tm Resulted Value Status 03/15/18 03/17/18 3.9 FINAL TSH - OUTSIDE LAB(UIU/ML) Jessica Dt/Tm Resulted Value Status 02/27/18 02/27/18 0.927 FINAL LDL (CALCULATED)(mg/dL) Jessica Dt/Tm Resulted Value Status 01/14/18 12:03P 01/14/18 118 EDITED LDL (DIRECT MEASURE)(mg/dL) Jessica Dt/Tm Resulted Value Status 01/14/18 12:03P 01/14/18 114 FINAL ALT(U/L) Jessica Dt/Tm Resulted Value Status 03/13/18 11:53A 03/13/18 23 FINAL Hemoglobin AIC Results: HEMOGLOBIN, A1C(%) Jessica Dt/Tm Resulted Value Status 01/14/18 12:03P 01/14/18 6.2 FINAL HEMOGLOBIN, [id number] LAB(%) Jessica Dt/Tm Resulted Value Status 11/20/17 11/21/17 6.3 FINAL HEMOGLOBIN, A1C(%) Jessica Dt/Tm Resulted Value Status 05/19/17 12:11P 05/19/17 5.9 FINAL in this encounter Plan of Treatment Upcoming Encounters Date Type Specialty Care Team Description 07/20/2018 Nutrition Services Gastroenterology Nita Enriquez, AKIKO [address] [place] [address] 07/23/2018 Office Visit Internal Medicine Marcela Pinto MD [address] [place] [address] [phone] 07/30/2018 Office Visit Podiatry Moore, Chantel Michelle, DPM [address] [place] [address] [place] [address] 06/01/2019 Imaging Radiology Health Maintenance Due Date Last Done Comments Zoster Vaccines HMT (2 of 3) 08/31/2012 07/06/2012 *ASTHMA ACTION PLAN-ADULT YEARLY 10/05/2014 DIABETES-HGBA1C EVERY 6 MONTHS 07/16/2018 0 01/14/2018, [...] fileas of this encounter Visit Diagnoses Diagnosis COPD, moderate (HCC) - Prima ry Chronic airway obstruction, not elsewhere classified Asthma with severity to be d etermined in this encounter
--- OUTSIDE RECORDS SUMMARY | 2023-06-18 03:46 | External Medical Summary | Summary of Care ---
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 Name Role Phone Alex Pinto MD Primary Care Provider [phone] Reason for Visit * Reason Comments MEDICATION REFILL Encounter Details Date Type Department Care Team Description 07/21/2018 Refill General Internal Medicine [facility] [address] [place] [address] Alex Pinto MD [address] [place] [address] [phone] GENERAL OSTEOARTHROSIS Allergies Active Allergy Reactions Severity Noted Date Comments Valsartan 07/10/2010 Enalapril 05/21/2006 Escitalopram Oxalate Nausea/vomiting 10/11/2009 Nauseated Iodinated Diagnostic Agents Nausea/vomiting 05/2010 IV Contrast Lisinopril 05/21/2006 Metoprolol Tartrate 11/18/2006 Made pulse low [place] Oil-Black Currant-Vit E 07/10/2010 Verapamil 03/21/2004 Bupropion [...] Active DilTIAZem HCl ER Beads 360 MG KZ62Hujfwkcwfnf:HTN , goal below 130/80 TAKE 1 CAPSULE [...] for Pain, Mild. 120 Tab 0 8 07/21/20 18 Discontinued as of this encounter Active Problems Problem Noted Date Ischemic colitis ([facility]) 10/01/2017 Lower GI bleed 04/21/2017 Irritable bowel syndrome with constipati on 04/21/2017 Elevated plasma metanephrines 02/20/2017 Type 2 diabetes mellitus with hemoglobin A1c goal of less than 7.5% ([facility]) 02/12/2017 Hypercalcemia 02/12/2017 Controlled substance agreement signed [...] AHP Diverticulitis of colon 07/25/2011 COPD, moderate ([facility]) 07/19/2011 Overview: Dr Bhatti every 6 months Allergic rhinitis 07/19/2011 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 Asthma with severity to be determined Carpal tunnel syndrome EDEMA dependent, ankles Generalized osteoarthritis ACEI/ARB contraindicated as of this encounter Resolved Problems Problem Noted Date Resolved Date DM (diabetes mellitus), type 2 ([facility]) 08/07/2015 06/25/2017 Nausea 09/05/2012 06/25/2017 Overview: ICD-10 update of inactive term HTN, GOAL BELOW 140/80 06/01/2012 6 Overview: Per HTN Protocol #27. Hypoxemia 10/08/2011 10/30/2015 Genetic Sleep Disorder Research Other*[id number] 07/25/2011 05/15/2016 Obesity, morbid (more than 1 00 lbs over ideal weight or BMI > 40) (HCC) 01/09/2010 08/19/2017 Overview: Per Obesity Taxonomy HTN, [...] of less than 7.0% ([facility]) 08/10/2009 12/03/2012 Overview: Per Diabetes Taxonomy. ICD-10 update of inactive term Type 2 diabetes mellitus wit h hemoglobin A1c goal of less than 7.0% ([facility]) 08/10/2009 Overview: Per Diabetes Taxonomy. ICD-10 update [...] Telephone Encounter - Alex Pinto MD - 07/21/2018 3:47 PM EDT Signed Prescriptions: Disp RefillsHYDROcodone-acetaminophen 5-325 mg per tab*120 [id number]: Take 1 Tab by mouth every 6 hours as needed for Pain,Mild.Authorizing Provider: ALEX PINTO * Telephone Encounter - Alex Pinto MD - 07/21/2018 3:47 PM EDT Signed. * Telephone Encounter - Sharonda Clark [facility] - 07/21/2018 1:55 PM EDT Formatting of this note may be different from the original. I have reviewed the patients controlled substance dispensing history in the Prescription Drug Monitoring Program in compliance with the [facility] regulations before prescribing a controlled substance. PDMP checked on 07/21/2018. Patient requesting: Hydrocodone/apap 5/325mg, filled 06/16/18, for #120 for a 30 day supply. Other recent controlled medication fills: None Medication due for refill: today Last Tox Screen Result(s): Results for orders [...] approve if appropriate. Thank You, Sharonda Clark [facility] * Telephone Encounter - Ran Cassidy Hanny - 07/21/2018 10:05 AM EDT Formatting of this note may be different from the original. RG Pending Prescriptions: Disp Refills HYDROcodone-acetaminophen 5-325 mg per ta*120 Tab0 Sig: Take 1 Tab by mouth every 6 hours as needed for Pain, Mild. Last Office Visit: 06/16/2018 Next Office Visit: 07/23/2018 Scheduled Provider(s): Alex Pinto MD If no future appointments scheduled, and last appointment is greater than a year ago, please schedule patient for a follow-up appointment Last date the medication was ordered: 06/16/2018 Patient Phone Numbers Labs: Lab Results Component Value Date/Time CREAT 0.95 03/15/2018 CREAT 1.0 03/13/2018 11:53 AM POTASSIUM 4.4 03/13/2018 11:53 AM TSH 0.60 01/14/2018 12:03 PM LDLCALC 118 01/14/2018 12:03 PM LDLDIRECT 114 01/14/2018 12:03 PM ALT 23 03/13/2018 11:53 AM HGBA1C 6.2 01/14/2018 12:03 PM in this encounter Plan of Treatment Upcoming Encounters Date Type Specialty Care Team Description 07/23/2018 Office Visit Internal Medicine Alex Pinto MD [address] [place] [address] [phone] 07/30/2018 Office Visit Podiatry Chantel Moore DPM [address] [place] [address] [place] [address] 08/12/2018 Nutrition Services Gastroenterology Nita Enriquez RDN [address] [place] [place] [address] 06/01/2019 Imaging Radiology Health [...]
--- OUTSIDE RECORDS SUMMARY | 2023-06-18 03:46 | External Medical Summary | Summary of Care ---
Author Name Unknown Organization [place] [address] Phone Care Team Providers Care Commercial Drafter Name Role Phone Marcela Pinto MD Primary Care Provider [phone] Reason for Visit * Reason Comments eRx-Medication Refill Encounter Details Date Type Department Care Team Description 05/13/2018 Refill General Internal Medicine [facility] [address] [place] [address] Marcela Pinto MD [address] [place] [address] [phone] Ischemic colitis (HCC) Allergies Active Allergy Reactions [...] TABS one pill each day 7 Active furosemide (LASIX) 40 MG TabletIndications:E ssential hypertension with goal blood pressure less than 130/80 One pill daily as needed for edema. 30 Tab 11 7 Active albuterol sulfate (PROVENTIL) (2.5 MG/3ML) 0.083% nebulizer solutionIndications :Asthma with severity to be determined,COPD, moderate ([facility]) USE ONE NEBULIZER TREATMENT TWICE A DAY NEEDED FOR WORSENING ASTHMA. J45.909, J44.9 225 mL 1 7 Active dicyclomine (BENTYL) 20 MG TabletIndications:C hronic constipation TAKE 1 TABLET BY MOUTH EVERY DAY 90 Tab 2 7 Active Terazosin HCl 2 MG Capsule TAKE ONE CAPSULE BY MOUTH EVERY DAY 90 Cap 1 8 Active [facility] SENNA 8.6 MG Tablet TAKE 2 TABLETS BY MOUTH EVERY EVENING FOR 10 DAYS NEEDED FOR CONSTIPATION 0 8 Active ondansetron ODT (ZOFRAN) 8 MG TBDPIndications:David tsang DISSOLVE 1 TABLET ON TONGUE EVERY 8 HOURS NEEDED FOR NAUSEA 60 Tab 5 8 Active COMBIVENT RESPIMAT 20-100 MCG/ACT InhalerIndications: Asthma with severity to be determined,COPD, moderate (HCC) TAKE 1 PUFF BY MOUTH 4 TIMES A DAY 1 Inhaler 5 8 Active zafirlukast (ACCOLATE) 20 MG [...] MOUTH DAILY 90 Tab 1 8 Active HYDROcodone-acetami nophen 5-325 mg per tab 5-325 MG per tabletIndications:G eneralized osteoarthritis Take 1 Tab by mouth every 6 hours as needed for Pain, Breakthrough. 120 Tab 0 8 Active RaNITidine HCl 300 MG Tablet Take 0.5 Tabs by mouth at bedtime. 30 Tab 2 8 Active DilTIAZem HCl ER Beads 360 MG [id number]:HTN , goal below 130/80 TAKE 1 CAPSULE EVERY DAY 90 Cap 1 8 Active doxycycline hyclate 100 MG CapsuleIndications: Lyme disease TAKE 1 CAPSULE BY MOUTH 2 TIMES A DAY FOR 7 DAYS. TAKE FOR 7 DAYS 14 Cap 0 8 Active omeprazole (PRILOSEC) 20 MG CPDRIndications:Isc hemic colitis (HCC) TAKE 1 CAPSULE TWICE DAILY 180 Cap 1 8 Active omeprazole (PRILOSEC) 20 MG CPDRIndications:Isc hemic colitis (HCC) TAKE 1 CAPSULE TWICE DAILY 180 Cap 1 8 05/13/20 18 Discontinued as of this encounter Active Problems Problem Noted Date Ischemic colitis (HCC) 10/01/2017 Lower GI bleed 04/21/2017 Irritable bowel syndrome with constipati on 04/21/2017 Elevated plasma metanephrines 02/20/2017 Type 2 diabetes mellitus with hemoglobin A1c goal of less than 7.5% ([facility]) 02/12/2017 Hypercalcemia 02/12/2017 Controlled substance [...] AHP Diverticulitis of colon 07/25/2011 COPD, moderate ([facility]) 07/19/2011 Overview: Dr Bhatti every 6 months Allergic rhinitis 07/19/2011 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 Asthma with severity to be determined Carpal tunnel syndrome EDEMA dependent, ankles Generalized osteoarthritis ACEI/ARB contraindicated as of this encounter Resolved Problems Problem Noted Date Resolved Date DM (diabetes mellitus), type 2 ([facility]) 08/07/2015 06/25/2017 Nausea 09/05/2012 06/25/2017 Overview: ICD-10 update of inactive term HTN, GOAL BELOW 140/80 06/01/2012 6 Overview: Per HTN Protocol #27. Hypoxemia 10/08/2011 10/30/2015 Genetic Sleep Disorder Research Other*[id number] 07/25/2011 05/15/2016 Obesity, morbid (more than 1 [...] of less than 7.0% ([facility]) 08/10/2009 12/03/2012 Overview: Per Diabetes Taxonomy. ICD-10 update of inactive term Type 2 diabetes mellitus wit h hemoglobin A1c goal of less than 7.0% ([facility]) 08/10/2009 Overview: Per Diabetes Taxonomy. ICD-10 update of inactive term BENIGN HYPERTENSION 08/18/2009 Overview: Modified per HTN Taxonomy. OBESITY, UNSPECIFIED 01/09/2010 Overview: Per Obesity Taxonomy Mixed dyslipidemia 09/19/2009 Overview: Per Lipid Taxonomy. as of this encounter Immunizations Name Dates Previously Given Next Due Hepatitis B, 20+ yrs 10/01/2017,04/21/2017,03/20 Pneumococcal Conjugate Vacc, 13 Valent (Prevnar) 03/28/2015 Pneumococcal Polyvalent Vacc (Pneumovax) 05/21/2006 Seasonal Influenza, Quadriva lent, No Preserve, 6 Mons & Above, IM 07/30/2017 Seasonal Influenza, Quadriva lent, No Preserve, IM 08/15/2016,07/14/2015 Seasonal Influenza, Trivalen t, with Preserve, 3yr & Above, Split 08/04/2014,07/26/2013,06/26/2012,07/14,08/16/2010,07/18/2009,09/01/20 08,08/12/2006 TD, Preservative Free 02/28/2009 Varicella Zoster Vaccine (Adult) 07/06/2012 as of this encounter 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 Tobacco Use Types Packs/Day Years Used Date Never Smoker Smokeless Tobacco: Never Used Alcohol Use Drinks/Week oz/Week Comments No Sex Assigned at Date Recorded Not on file as of this encounter Miscellaneous Notes * Telephone Encounter - Marcela Pinto MD - 05/13/2018 3:49 PM EDT Signed Prescriptions: Disp Refills omeprazole (PRILOSEC) 20 MG CPDR 180 Cap1 Sig: TAKE 1 CAPSULE TWICE DAILY Authorizing Provider: MARCELA PINTO * Telephone Encounter - Joanna Ontiveros LPN - 05/13/2018 9:01 AM EDT Pending Prescriptions: Disp Refills omeprazole (PRILOSEC) 20 MG CPDR [Pharmac*180 Cap1 Sig: TAKE 1 CAPSULE TWICE DAILY * Telephone Encounter - Joanna Ontiveros LPN - 05/13/2018 9:01 AM EDT Formatting of this note may be different from the original. Pending Prescriptions: Disp Refills omeprazole (PRILOSEC) 20 MG CPDR [Pharmac*180 Cap1 Sig: TAKE 1 CAPSULE TWICE DAILY Last Office Visit: 03/31/2018 Next Office Visit: 05/15/2018 Scheduled Provider(s): Marcela Pinto MD Last date the medication was ordered: 11/18/17 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 COPD, moderate (HCC) J44.9 Allergic rhinitis J30.9 Diverticulitis of colon K57.32 Nocturnal hypoxia G47.34 Sleep apnea, obstructive G47.33 Incisional hernia K43.2 ACEI/ARB contraindicated [id number] HTN, goal below 140/90 I10 Hyperlipidemia with target LDL less than 100 E78.5 Obesity, Class II, BMI 35.0-39.9, with comorbidity (see actual BMI) E66.9 Controlled substance agreement signed Z79.899 Type 2 diabetes mellitus with hemoglobin A1c goal of less than 7.5% ([facility]) E11.9 Hypercalcemia E83.52 Elevated plasma metanephrines R79.89 Lower GI bleed K92.2 Irritable bowel syndrome with constipation K58.1 Ischemic colitis ([facility]) K55.9 Labs: CREATININE-OUTSIDE LAB(MG/DL) Jessica Dt/Tm Resulted [...] Status 01/14/18 12:03P 01/14/18 6.2 FINAL HEMOGLOBIN, [id number] LAB(%) Jessica Dt/Tm Resulted Value Status 11/20/17 11/21/17 6.3 FINAL HEMOGLOBIN, A1C(%) Jessica Dt/Tm Resulted Value Status 05/19/17 12:11P 05/19/17 5.9 FINAL in this encounter Plan of Treatment Upcoming Encounters Date Type Specialty Care Team Description 05/15/2018 Office Visit Internal Medicine Marcela Pinto MD [address] [place], [place] [address] [phone] 05/29/2018 Imaging Radiology 06/10/2018 Nutrition Services Gastroenterology Nita Enriquez, AKIKO [address] [place] [address] [place] [address] [phone] 07/23/2018 Office Visit Internal Medicine Marcela Pinto MD [address] [place] [address] [phone] 07/30/2018 Office Visit Podiatry Chantel Moore DPM [address] [place] [place] [address] Health Maintenance Due Date Last Done Comments DTaP,Tdap,and Td Vaccines (1 - Tdap) 03/01/2009 02/28/2009 *ASTHMA ACTION PLAN-ADULT YEARLY 10/05/2014 Influenza Vaccine (FLU shot) (#1) 2018 07/30/2017, 08/15/2016, 07/14/2015, Additional history exists DIABETES-HGBA1C EVERY 6 MONTHS 07/16/2018 0 01/14/2018, 11/20/2017, 05/19/2017, Additional history exists DIABETES-EYE EXAM 08/04/2018 08/04/2017, , 09/23/2011, Additional history exists DIABETES-LDL EVERY 12 MONTHS 01/14/201901/2018, 01/14/2018, 06/23/2017, Additional history exists DIABETES-FOOT EXAM 01/16/2019 01/16/2018, 0 11/15/2016, 02/23/2016, Additional history exists DIABETES-URINE MICROALBUMIN EVERY 12 MONTHS 03/15/2019 03/15/2018, 11/20/2017, 05/19/2017, Additional history exists DXA-EVERY 5 YRS-USE SMARTSET # 3348 TO ORDER 05/01/2020 05/01/2015, 06/19/2010, 06/19/2010, Additional history exists COLONOSCOPY-EVERY 3 YRS AGES 18-100 02/28/2021 02/28/2018, 06/05/2017, 05/29/2016, Additional history exists PNEUMOCOCCAL ADULT 65 YRS AND OVER Completed 2014, 05/21/2006 as of this encounter Implants Not on fileas of this encounter Visit Diagnoses Diagnosis Ischemic colitis (HCC) Unspecified vascular insufficiency of intestine in this encounter
--- OUTSIDE RECORDS SUMMARY | 2023-06-18 03:46 | External Medical Summary | Summary of Care ---
Author Name Unknown Organization [place] [address] Phone Care Team Providers Care Clinical Dietitian Name Role Phone Marcela Pinto MD Primary Care Provider [phone] Reason for Visit * Reason Comments eRx-Medication Refill Encounter Details Date Type Department Care Team Description 05/25/2018 Refill Ancillary [facility] [place] [address] [place] [address] Marcela Pinto MD [address] [place] [address] [phone] Essential hypertension with goal blood pressure less than 130/80 Allergies Active Allergy Reactions Severity Noted Date Comments Valsartan 07/10/2010 Enalapril 05/21/2006 Escitalopram Oxalate Nausea/vomiting 10/11/2009 Nauseated Iodinated Diagnostic Agents Nausea/vomiting 05/2010 IV Contrast Lisinopril 05/21/2006 Metoprolol Tartrate 11/18/2006 Made pulse low [place] Oil-Black Currant-Vit E 07/10/2010 Verapamil 03/21/2004 Bupropion [...] determined,COPD, moderate ([facility]) USE ONE NEBULIZER TREATMENT TWICE A DAY NEEDED FOR WORSENING ASTHMA. J45.909, J44.9 225 mL 1 7 Active dicyclomine (BENTYL) 20 MG TabletIndications:C hronic constipation TAKE 1 TABLET BY MOUTH EVERY DAY 90 Tab 2 7 Active [facility] SENNA 8.6 MG Tablet [...] Active DilTIAZem HCl ER Beads 360 MG [id number]:HTN , goal below 130/80 TAKE 1 CAPSULE EVERY DAY 90 Cap 1 8 Active omeprazole (PRILOSEC) 20 MG CPDRIndications:Isc hemic colitis (HCC) TAKE 1 CAPSULE TWICE DAILY 180 Cap 1 8 Active Terazosin HCl 2 MG Capsule TAKE ONE CAPSULE BY MOUTH EVERY DAY 90 Cap 1 8 Active HYDROcodone-acetami nophen 5-325 mg per tab 5-325 MG per tabletIndications:G eneralized osteoarthritis Take 1 Tab by mouth every 6 hours as needed for Pain, Breakthrough. 120 Tab 0 8 Active furosemide (LASIX) 40 MG TabletIndications:E ssential hypertension with goal blood pressure less than 130/80 TAKE 1 TABLET BY MOUTH DAILY NEEDED FOR EDEMA 30 Tab 11 8 Active furosemide (LASIX) 40 MG TabletIndications:E ssential hypertension with goal blood pressure less than 130/80 One pill daily as needed for edema. 30 Tab 11 7 05/25/20 18 Discontinued as of this encounter Active Problems Problem Noted Date Ischemic colitis ([facility]) 10/01/2017 Lower GI bleed 04/21/2017 Irritable bowel syndrome with constipati on 04/21/2017 Elevated plasma metanephrines 02/20/2017 Type 2 diabetes mellitus with hemoglobin A1c goal of less than 7.5% ([facility]) 02/12/2017 Hypercalcemia 02/12/2017 Controlled substance [...] of colon 07/25/2011 COPD, moderate ([facility]) 07/19/2011 Overview: Dr Bhatti every 6 months Allergic rhinitis 07/19/2011 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 Asthma with severity to be determined Carpal tunnel syndrome EDEMA dependent, ankles Generalized osteoarthritis ACEI/ARB contraindicated as of this encounter Resolved Problems Problem Noted Date Resolved Date DM (diabetes mellitus), type 2 ([facility]) 08/07/2015 06/25/2017 Nausea 09/05/2012 06/25/2017 Overview: ICD-10 update of inactive term HTN, GOAL BELOW 140/80 06/01/2012 6 Overview: Per HTN Protocol #27. Hypoxemia 10/08/2011 10/30/2015 Genetic Sleep Disorder Research Other*[id number] 07/25/2011 05/15/2016 Obesity, morbid (more than 1 00 lbs over ideal weight or BMI > 40) ([facility]) 01/09/2010 08/19/2017 Overview: Per Obesity [...] than 7.0% ([facility]) 08/10/2009 12/03/2012 Overview: Per Diabetes Taxonomy. ICD-10 update of inactive term Type 2 diabetes mellitus wit h hemoglobin A1c goal of less than 7.0% ([facility]) 08/10/2009 Overview: Per Diabetes Taxonomy. [...] Telephone Encounter - Nicolas Ng MD - 05/25/2018 8:21 AM EDT Signed Prescriptions: Disp Refillsfurosemide (LASIX) 40 MG Tablet 30 Tab 11Sig: TAKE 1 TABLET BY MOUTH DAILY NEEDED FOR EDEMAAuthorizing Provider: NICOLAS NG in this encounter Plan of Treatment Upcoming Encounters Date Type Specialty Care Team Description 05/29/2018 Imaging Radiology 06/10/2018 Nutrition Services Gastroenterology Nita Enriquez, RDN [address] [facility] [place] [address] 07/23/2018 Office Visit Internal Medicine Marcela Pinto MD [address] [place], [place] [address] 07/30/2018 Office Visit Podiatry Chantel Moore, LEONARD [address] [place] [facility] [place] [address] Health Maintenance Due Date Last Done [...] fileas of this encounter Visit Diagnoses Diagnosis Essential hypertension with goal blood pressure less than 130/80 in this encounter
--- OUTSIDE RECORDS SUMMARY | 2023-06-18 03:46 | External Medical Summary | Summary of Care ---
Author Name Unknown Organization [place] [address] Phone Care Team Providers Care Lamp Inspector Name Role Phone Marcela Pinto MD Primary Care Provider [phone] Reason for Visit * Reason Comments eRx-Medication Refill Encounter Details Date Type Department Care Team Description 05/15/2018 Refill General Internal Medicine [facility] [address] [place] [address] Marcela Pinto MD [address] [place] [address] [phone] Allergies Active Allergy Reactions Severity Noted Date Comments Valsartan 07/10/2010 Enalapril 05/21/2006 Escitalopram Oxalate Nausea/vomiting 10/11/2009 Nauseated Iodinated Diagnostic Agents Nausea/vomiting 05/2010 IV Contrast Lisinopril 05/21/2006 Metoprolol Tartrate 11/18/2006 Made pulse low [place] Oil-Black Currant-Vit E 07/10/2010 Verapamil 03/21/2004 Bupropion [...] :Asthma with severity to be determined,COPD, moderate ([facility] [...] Active DilTIAZem HCl ER Beads 360 MG [id number]:HTN , goal below 130/80 TAKE 1 CAPSULE [...] EVERY DAY 90 Cap 1 8 Active Terazosin HCl 2 MG Capsule TAKE ONE CAPSULE BY MOUTH EVERY DAY 90 Cap 1 8 05/15/20 18 Discontinued as of this encounter Active Problems Problem Noted Date Ischemic colitis ([facility]) 10/01/2017 Lower GI bleed 04/21/2017 Irritable bowel syndrome with constipati on 04/21/2017 Elevated plasma metanephrines 02/20/2017 Type 2 diabetes mellitus with hemoglobin A1c goal of less than 7.5% ([facility]) 02/12/2017 Hypercalcemia 02/12/2017 Controlled substance [...] AHP Diverticulitis of colon 07/25/2011 COPD, moderate ([facility]) 07/19/2011 Overview: Dr Bhatti every 6 months Allergic rhinitis 07/19/2011 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 Asthma with severity to be determined Carpal tunnel syndrome EDEMA dependent, ankles Generalized osteoarthritis ACEI/ARB contraindicated as of this encounter Resolved Problems Problem Noted Date Resolved Date DM (diabetes mellitus), type 2 ([facility]) 08/07/2015 06/25/2017 Nausea 09/05/2012 06/25/2017 Overview: ICD-10 update of inactive term HTN, GOAL BELOW 140/80 06/01/2012 6 Overview: Per HTN Protocol #27. Hypoxemia 10/08/2011 10/30/2015 Genetic Sleep Disorder Research Other*[id number] 07/25/2011 05/15/2016 Obesity, morbid (more than 1 00 lbs over ideal weight or BMI > 40) ([facility]) 01/09/2010 08/19/2017 Overview: Per Obesity [...] less than 7.0% ([facility]) 08/10/2009 12/03/2012 Overview: Per Diabetes Taxonomy. ICD-10 update of inactive term Type 2 diabetes mellitus wit h hemoglobin A1c goal of less than 7.0% ([facility]) 08/10/2009 Overview: Per Diabetes Taxonomy. [...] Telephone Encounter - Marcela Pinto MD - 05/15/2018 10:57 AM EDT Signed Prescriptions: Disp Refills Terazosin HCl 2 MG Capsule 90 Cap 1 Sig: TAKE ONE CAPSULE BY MOUTH EVERY DAY Authorizing Provider: MARCELA PINTO * Telephone Encounter - Joanna Ontiveros LPN - 05/15/2018 10:57 AM EDT Pending Prescriptions: Disp Refills Terazosin HCl 2 MG Capsule [Pharmacy Med *90 Cap 1 Sig: TAKE ONE CAPSULE BY MOUTH EVERY DAY * Telephone Encounter - Joanna Ontiveros LPN - 05/15/2018 10:56 AM EDT Formatting of this note may be different from the original. Pending Prescriptions: Disp Refills Terazosin HCl 2 MG Capsule [Pharmacy Med *90 Cap 1 Sig: TAKE ONE CAPSULE BY MOUTH EVERY DAY Last Office Visit: 03/31/2018 Next Office Visit: 07/23/2018 Scheduled Provider(s): Marcela Pinto MD Last date the medication was ordered: 11/03/17 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 COPD, moderate (HCC) J44.9 Allergic rhinitis J30.9 Diverticulitis of colon K57.32 Nocturnal hypoxia G47.34 Sleep apnea, obstructive G47.33 Incisional hernia K43.2 ACEI/ARB contraindicated [id number] HTN, goal below 140/90 I10 Hyperlipidemia with target LDL less than 100 E78.5 Obesity, Class II, BMI 35.0-39.9, with comorbidity (see actual BMI) E66.9 Controlled substance agreement signed Z79.899 Type 2 diabetes mellitus with hemoglobin A1c goal of less than 7.5% ([facility]) E11.9 Hypercalcemia E83.52 Elevated plasma metanephrines R79.89 Lower GI bleed K92.2 Irritable bowel syndrome with constipation K58.1 Ischemic colitis ([facility]) K55.9 Labs: CREATININE-OUTSIDE LAB(MG/DL) Jessica Dt/Tm Resulted Value Status 03/15/18 03/17/18 0.95 FINAL POTASSIUM-OUTSIDE LAB(MMOL/L) Jessica Dt/Tm Resulted Value Status 03/15/18 03/17/18 3.9 FINAL TSH - OUTSIDE LAB(UIU/ML) Jessica Dt/Tm Resulted Value Status 02/27/18 02/27/18 0.927 FINAL LDL (CALCULATED)(mg/dL) Jessica Dt/Tm Resulted Value Status 01/14/18 12:03P 01/14/18 118 EDITED LDL (DIRECT MEASURE)(mg/dL) Jessica Dt/Tm Resulted Value Status 01/14/18 12:03P 4/4/18 114 FINAL ALT(U/L) Jessica Dt/Tm Resulted Value Status 03/13/18 11:53A 03/13/18 23 FINAL Hemoglobin AIC Results: HEMOGLOBIN, A1C(%) Jessica Dt/Tm Resulted Value Status 01/14/18 12:03P 01/14/18 6.2 FINAL HEMOGLOBIN, [id number] LAB(%) Jessica Dt/Tm Resulted Value Status 11/20/17 11/21/17 6.3 FINAL HEMOGLOBIN, A1C(%) Jessica Dt/Tm Resulted Value Status 05/19/17 12:11P 05/19/17 5.9 FINAL in this encounter Plan of Treatment Upcoming Encounters Date Type Specialty Care Team Description 05/15/2018 Office Visit Internal Medicine Marcela Pinto MD [address] [place], [place] [address] [phone] 05/29/2018 Imaging Radiology 06/10/2018 Nutrition Services Gastroenterology Nita Enriquez, AKIKO [address] [place] [place] [address] 07/23/2018 Office Visit Internal Medicine Marcela Pinto MD [address] [place] [address] [phone] 07/30/2018 Office Visit Podiatry Chantel Moore, LEONARD [...]
--- OUTSIDE RECORDS SUMMARY | 2023-06-18 03:46 | External Medical Summary | Summary of Care ---
Author Name Unknown Organization [place] [address] Phone Care Team Providers Care Library Technical Assistant Name Role Phone Marcela Pinto MD Primary Care Provider [phone] Reason for Referral * Evaluate & Treat - Unlimited Visits (Within 10 days (routine)) Status Reason Specialty Diagnoses / Procedures Referred By Contact Referred To Contact Pending Review Specialty Services Required Ophthalmology Diagnoses DM type 2 nursing care encounter (HCC) Marcela Pinto MD [address] [place] [id number] Reason for Visit * Reason Comments FOLLOW UP IMMUNIZATIONS Encounter Details Date Type Department Care Team Description 05/15/2018 Office Visit General Internal Medicine [facility] [address] [place] [address] Marcela Pinto MD [address] [place] [phone] Type 2 diabetes mellitus with hemoglobin A1c goal of less than 7.5% ([facility])*;GENERAL OSTEOARTHROSIS ;Need for dibjvnkomh-fwevrwz-jkzbj ssis (Tdap) vaccine;DM type 2 nursing care encounter ([facility]);COPD, moderate ([facility]);Nocturnal hypoxia;Sleep apnea, obstructive;Nausea Allergies Active Allergy Reactions Severity Noted Date Comments Valsartan 07/10/2010 Enalapril 05/21/2006 Escitalopram Oxalate Nausea/vomiting 10/11/2009 Nauseated Iodinated Diagnostic Agents Nausea/vomiting 05/2010 IV Contrast Lisinopril 05/21/2006 Metoprolol Tartrate 11/18/2006 Made pulse low [place] Oil-Black Currant-Vit E 07/10/2010 Verapamil 03/21/2004 [...] [facility]) USE TO TEST BLOOD SUGAR 4 [...] 7.5% ([facility]) TAKE 1 TABLET BY MOUTH IN THE [...] Active DilTIAZem HCl ER Beads 360 MG EZ28Pcpnzefucmm:HTN , goal below 130/80 TAKE 1 CAPSULE EVERY DAY 90 Cap 1 8 Active omeprazole (PRILOSEC) 20 MG CPDRIndications:Isc hemic colitis (HCC) TAKE 1 CAPSULE TWICE DAILY 180 Cap 1 8 Active Terazosin HCl 2 MG Capsule TAKE ONE CAPSULE BY MOUTH EVERY DAY 90 Cap 1 8 Active bfomlqy-hpjbks-ielq l pertussis (BOOSTRIX) 5-2.5-18.5 LF-MCG/0.5 SUSPIndications:Jennifer kulkarni for diphtheria-tetanus- pertussis (Tdap) vaccine Inject 0.5 mL into a large muscle once for 1 dose. 1 Vial 0 8 05/15/20 18 Active HYDROcodone-acetami nophen 5-325 mg per tab 5-325 MG per tabletIndications:G eneralized osteoarthritis Take 1 Tab by mouth every 6 hours as needed for Pain, Breakthrough. 120 Tab 0 8 Active Terazosin HCl 2 MG Capsule TAKE ONE CAPSULE BY MOUTH EVERY DAY 90 Cap 1 8 05/15/20 18 Discontinued HYDROcodone-acetami nophen 5-325 mg per tab 5-325 MG per tabletIndications:G eneralized osteoarthritis Take 1 Tab by mouth every 6 hours as needed for Pain, Breakthrough. 120 Tab 0 8 05/15/20 18 Discontinued doxycycline hyclate 100 MG CapsuleIndications: Lyme disease TAKE 1 CAPSULE BY MOUTH 2 TIMES A DAY FOR 7 DAYS. TAKE FOR 7 DAYS 14 Cap 0 8 05/15/20 18 Discontinued as of this encounter Active Problems Problem Noted Date Ischemic colitis (HCC) 10/01/2017 Lower GI bleed 04/21/2017 Irritable bowel syndrome with constipati on 04/21/2017 Elevated plasma metanephrines 02/20/2017 Type 2 diabetes mellitus with hemoglobin A1c goal of less than 7.5% ([facility]) 02/12/2017 Hypercalcemia 02/12/2017 Controlled substance agreement [...] AHP Diverticulitis of colon 07/25/2011 COPD, moderate ([facility]) 07/19/2011 Overview: Dr Bhatti every 6 months Allergic rhinitis 07/19/2011 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 Asthma with severity to be determined Carpal tunnel syndrome EDEMA dependent, ankles Generalized osteoarthritis ACEI/ARB contraindicated as of this encounter Resolved Problems Problem Noted Date Resolved Date DM (diabetes mellitus), type [address]) 08/07/2015 06/25/2017 Nausea 09/05/2012 06/25/2017 Overview: ICD-10 update of inactive term HTN, GOAL BELOW 140/80 06/01/2012 6 Overview: Per HTN Protocol #27. Hypoxemia 10/08/2011 10/30/2015 Genetic Sleep Disorder Research Other*[id number] 07/25/2011 05/15/2016 Obesity, morbid (more than 1 00 lbs over ideal weight or BMI > 40) ([facility]) 01/09/2010 08/19/2017 Overview: Per Obesity Taxonomy [...] 7.0% ([facility]) 08/10/2009 12/03/2012 Overview: Per Diabetes Taxonomy. ICD-10 update of inactive term Type 2 diabetes mellitus wit h hemoglobin A1c goal of less than 7.0% ([facility]) 08/10/2009 Overview: Per Diabetes Taxonomy. ICD-10 [...] Vital Sign Reading Time Taken Blood Pressure 122/60 05/15/2018 3:14 PM EDT Pulse 80 05/15/2018 3:14 PM EDT Temperature 36.6 C (97.9 F) 05/15/2018 3 :14 PM EDT Respiratory Rate 16 05/15/2018 3:14 PM EDT Oxygen Saturation 91% 05/15/2018 3:1 4 PM EDT Inhaled Oxygen Concentration - - Weight 109.2 kg (240 lb 12.8 oz) 2017 3:14 PM EDT Height 165.1 cm (5' 5") 05/15/2018 3:14 PM EDT Body Mass Index 40.07 05/15/2018 3:14 PM EDT in this encounter Instructions * Patient Instructions - Renetta Gu LPN - 05/15/2018 3:16 PM EDT ~~PATIENT INSTRUCTIONS FOR TDAP VACCINE~~ Possible side effects of TDAP vaccine, (tetanus shot), are usually mild and can include: 1. Soreness or redness at injection site 2. Low grade fever 3. Body aches You may use a fever / pain reducing medication as needed for these symptoms. LET YOUR DOCTOR KNOW IMMEDIATELY IF YOU HAVE DIFFICULTY BREATHING OR SWALLOWING, EXPERIENCE ITCHINGOF FEET OR HANDS, HAVE SWELLING OF EYES, FACE OR INSIDE OF NOSE. Dear Nina Harrington, The care of your Diabetes is very important to us. A yearly diabetic eye exam is important to protect your vision. Please tell your Eye Doctor to fax or mail us the results of your Diabetic Eye Exam at your next visit. Our Address and Fax Number are listed below to help. Thank you for helping us to improve your Diabetes Care Our Office Address and Fax Number: Marcela Pinto MD [facility] Internal Medicine [place] [phone] in this encounter Progress Notes * Marcela Pinto MD - 05/15/2018 3:35 PM EDT Formatting of this note may be different from the original. HPI: Nina Harrington is a 77 year old female with medical problems as listed below including Asthma, HTN, COPD, uses oxygen 4 liter at night, Sleep apnoea , not on any CPAP machine,DM who presents with: Chief Complaint Patient presents with FOLLOW UP IMMUNIZATIONS Patient is here for the recheck. Chart reviewed with the patient including current meds, last labs and HM. No acute event since we saw her last time including no recent fall or injuries. Reviewed GI work up done recently for GI bleed, office visit note from Dr. Coello. 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 BL hand jointpains+, no rash. No chestpain, no new sob, wheezing. No urinary s/s. Hemoglobin AIC Results: HEMOGLOBIN, A1C(%) Jessica Dt/Tm Resulted Value Status 01/14/18 12:03P 01/14/18 6.2 FINAL HEMOGLOBIN, [id number] LAB(%) Jessica Dt/Tm Resulted Value Status 11/20/17 11/21/17 6.3 FINAL HEMOGLOBIN, A1C(%) Jessica Dt/Tm Resulted Value Status 05/19/17 12:11P 05/19/17 5.9 FINAL 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 COPD, moderate (HCC) J44.9 Allergic rhinitis J30.9 Diverticulitis of colon K57.32 Nocturnal hypoxia G47.34 Sleep apnea, obstructive G47.33 Incisional hernia K43.2 ACEI/ARB contraindicated [id number] HTN, goal below 140/90 I10 Hyperlipidemia with [...] Current Outpatient Prescriptions Medication Sig Dispense Refill Terazosin HCl 2 MG Capsule TAKE ONE CAPSULE BY MOUTH EVERY DAY 90 Cap 1 omeprazole (PRILOSEC) 20 MG CPDR TAKE 1 CAPSULE TWICE DAILY 180 Cap 1 DilTIAZem HCl ER Beads 360 MG CP24 TAKE 1 CAPSULE EVERY DAY 90 Cap 1 RaNITidine HCl 300 MG Tablet Take 0.5 Tabs by mouth at bedtime. 30 Tab 2 HYDROcodone-acetaminophen 5-325 mg per tab 5-325 MG per tablet Take 1 Tab by mouth every 6 hours as needed for Pain, Breakthrough. 120 Tab 0 glimepiride (AMARYL) 4 MG Tablet TAKE 1 [...] Tablet Every other day 60 Tab 11 zafirlukast (ACCOLATE) 20 MG Tablet TAKE 1 TABLET EVERY DAY 90 Tab 1 COMBIVENT RESPIMAT 20-100 MCG/ACT Inhaler TAKE 1 PUFF BY MOUTH 4 TIMES A DAY 1 Inhaler 5 ondansetron ODT (ZOFRAN) 8 MG TBDP DISSOLVE 1 TABLET ON TONGUE EVERY 8 HOURS NEEDED FOR NAUSEA 60 Tab 5 [facility] SENNA 8.6 MG Tablet TAKE 2 TABLETS BY MOUTH EVERY EVENING FOR 10 DAYS NEEDED FOR CONSTIPATION 0 dicyclomine (BENTYL) 20 MG Tablet TAKE 1 TABLET BY MOUTH EVERY DAY 90 Tab 2 albuterol sulfate (PROVENTIL) (2.5 MG/3ML) 0.083% nebulizer solution USE ONE NEBULIZER TREATMENT TWICE A DAY NEEDED FOR WORSENING ASTHMA. J45.909, J44.9 225 mL 1 furosemide (LASIX) 40 MG Tablet One pill daily as needed for edema. 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 OBJECTIVE: BP 122/60 | Pulse 80 | Temp (Src) 97.9 (Tympanic) | Resp 16 | Ht 5' 5" (1.651m) | Wt 240 lbs 12.8 oz (109.226kg) | BMI 40.07 kg/m | BSA 2.24 m | SaO2 91% PHYSICAL EXAM: HEENT: PERRLA, EOMI, anicteric sclera, [...] hemoglobin a1c goal of less than 7.5% ([facility]) (primary encounter diagnosis) Plan: Hemoglobin a1c M15.9 General osteoarthrosis Z23 Need for ayrkbgjtua-llgyyoe-zdapsahsu (tdap) vaccine E11.9 Dm type 2 nursing care encounter ([facility]) Plan: Ophthalmology(diabetes-extended)referral op J44.9 Copd, moderate ([facility]) G47.34 Nocturnal hypoxia G47.33 Sleep apnea, obstructive R11.0 Nausea Marcela Pinto MD * Renetta Gu LPN - 05/15/2018 3:16 PM EDT Tdap covered under Medicare Part D, prescription order pended for physician to sign. Renetta Gu LPN The importance of having a yearly diabetic eye exam has been discussed with patient. Order and Referral placed along with patient instructions. Provider made aware. Renetta Gu LPN in this encounter Nursing Notes * Renetta Gu LPN - 05/15/2018 3:13 PM EDT Patient presents for follow up, ongoing problems with stomach in this encounter Plan of Treatment Upcoming Encounters Date Type Specialty Care Team Description 05/29/2018 Imaging Radiology 06/10/2018 Nutrition Services Gastroenterology Nita Enriquez RDN [address] [place] [address] [place] [address] 07/23/2018 Office Visit Internal Medicine Marcela Pinto MD [address] [facility] [address] [phone] 07/30/2018 Office Visit Podiatry Chantel Moore DPM [address] [place] [address] [place] [address] [phone] Scheduled Tests Name Priority Associated Diagnoses Order S chedule HEMOGLOBIN A1C Routine Type 2 diabetes mellitus with hemoglobin A1c goal of less than 7.5% (HCC) Expected: 05/15/2018 (Approximate), Expires: 05/15/2019 COMPR METAB PANEL Routine Type 2 diabetes mellitus with hemoglobin A1c goal of less than 7.5% (HCC) Expected: 05/15/2018 (Approximate), Expires: 05/15/2019 LDL (DIRECT MEASURE) Routine Type 2 diabetes mellitus with hemoglobin A1c goal of less than 7.5% (HCC) Expected: 05/15/2018 (Approximate), Expires: 05/15/2019 ALBUMIN / CREATININE RATIO, URINE Routine Type 2 diabetes mellitus with hemoglobin A1c goal of less than 7.5% (HCC) Expected: 05/15/2018 (Approximate), Expires: 05/15/2019 Scheduled Referrals Name Priority Associated Diagnoses Order S chedule OPHTHALMOLOGY(DIABE JUANITA-EXTENDED)REFERR AL OP Within 10 days (routine) DM type 2 nursing care encounter (HCC) Ordered: 05/15/2018 Health Maintenance Due Date Last Done Comments [...] 7.5% ([facility]) - Primary GENERAL OSTEOARTHROSIS Generalized osteoarthrosis, unspecified site Need for diphtheria-tetanus- pertussis (Tdap) vaccine Need for prophylactic vaccination with combined zhxlsjfnfp-bihxkom-tbfktgrqm (DTP) vaccine DM type 2 nursing care encou nter ([facility]) Type II or unspecified type diabetes mellitus without mention of complication, not stated as uncontrolled COPD, moderate ([facility]) Chronic airway obstruction, not elsewhere classified Nocturnal hypoxia Hypoxemia Sleep apnea, obstructive Obstructive sleep apnea (adult) (pediatric) Nausea Nausea alone in this encounter
--- OUTSIDE RECORDS SUMMARY | 2023-06-18 03:46 | External Medical Summary | Summary of Care ---
Author Name Unknown Organization [place] [address] Phone Care Team Providers Care Mathematical Engineer Name Role Phone Alex Pinto MD Primary Care Provider [phone] Reason for Visit * Reason Comments eRx-Medication Refill Encounter Details Date Type Department Care Team Description 07/16/2018 Refill General Internal Medicine [facility] [address] [place] [address] Alex Pinto MD [address] [place] [address] [phone] Asthma with severity to be determined;COPD, moderate ([facility]) Allergies Active Allergy Reactions Severity Noted Date Comments Valsartan 07/10/2010 Enalapril 05/21/2006 Escitalopram Oxalate Nausea/vomiting 10/11/2009 Nauseated Iodinated Diagnostic Agents Nausea/vomiting 05/2010 IV Contrast Lisinopril 05/21/2006 Metoprolol Tartrate 11/18/2006 Made pulse low [place] Oil-Black Currant-Vit E 07/10/2010 Verapamil 03/21/2004 Bupropion [...] Active DilTIAZem HCl ER Beads 360 MG CV45Idytypuppta:HTN , goal below 130/80 TAKE 1 CAPSULE [...] J45.909, J44.9 225 mL 1 8 Active albuterol sulfate (PROVENTIL) (2.5 MG/3ML) 0.083% nebulizer solutionIndications :Asthma with severity to be determined,COPD, moderate (HCC) USE ONE NEBULIZER TREATMENT TWICE A DAY NEEDED FOR WORSENING ASTHMA. J45.909, J44.9 225 mL 1 7 07/16/20 18 Discontinued as of this encounter Active Problems Problem Noted Date Ischemic colitis ([facility]) 10/01/2017 Lower GI bleed 04/21/2017 Irritable bowel syndrome with constipati on 04/21/2017 Elevated plasma metanephrines 02/20/2017 Type 2 diabetes mellitus with hemoglobin A1c goal of less than 7.5% ([facility]) 02/12/2017 Hypercalcemia 02/12/2017 Controlled substance [...] AHP Diverticulitis of colon 07/25/2011 COPD, moderate (HCC) 07/19/2011 Overview: Dr Bhatti every 6 months Allergic rhinitis 07/19/2011 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 Asthma with severity to be determined Carpal tunnel syndrome EDEMA dependent, ankles Generalized osteoarthritis ACEI/ARB contraindicated as of this encounter Resolved Problems Problem Noted Date Resolved Date DM (diabetes mellitus), type 2 ([facility]) 08/07/2015 06/25/2017 Nausea 09/05/2012 06/25/2017 Overview: ICD-10 update of inactive term HTN, GOAL BELOW 140/80 06/01/2012 6 Overview: Per HTN Protocol #27. Hypoxemia 10/08/2011 10/30/2015 Genetic Sleep Disorder Research Other*[id number] 07/25/2011 05/15/2016 Obesity, morbid (more than 1 00 lbs over ideal weight or BMI > 40) ([facility]) 01/09/2010 08/19/2017 Overview: Per Obesity [...] of less than 7.0% ([facility]) 08/10/2009 12/03/2012 Overview: Per Diabetes Taxonomy. ICD-10 update of inactive term Type 2 diabetes mellitus wit h hemoglobin A1c goal of less than 7.0% ([facility]) 08/10/2009 Overview: Per Diabetes Taxonomy. [...] Telephone Encounter - Alex Pinto MD - 07/17/2018 12:59 PM EDT Signed Prescriptions: Disp Refills albuterol sulfate (PROVENTIL) (2.5 MG/3ML)*225 mL 1 Sig: USE ONE NEBULIZER TREATMENT TWICE A DAY NEEDED FOR WORSENING ASTHMA. J45.909, J44.9 Authorizing Provider: ALEX PINTO * Telephone Encounter - Joanna Ontiveros LPN - 07/17/2018 12:49 PM EDT Pending Prescriptions: Disp Refills albuterol sulfate (PROVENTIL) (2.5 MG/3ML*225 mL 1 Sig: USE ONE NEBULIZER TREATMENT TWICE A DAY NEEDED FOR WORSENING ASTHMA. J45.909, J44.9 * Telephone Encounter - Joanna Ontiveros LPN - 07/17/2018 12:49 PM EDT Formatting of this note may be different from the original. Pending Prescriptions: Disp Refills albuterol sulfate (PROVENTIL) (2.5 MG/3ML*225 mL 1 Sig: USE ONE NEBULIZER TREATMENT TWICE A DAY NEEDED FOR WORSENING ASTHMA. J45.909, J44.9 Last Office Visit: 06/16/2018 Next Office Visit: 07/23/2018 Scheduled Provider(s): Alex Pinto MD Last date the medication was ordered: 08/27/17 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 COPD, moderate (HCC) J44.9 Allergic rhinitis J30.9 Diverticulitis of colon K57.32 Nocturnal hypoxia G47.34 Sleep apnea, obstructive G47.33 Incisional hernia K43.2 ACEI/ARB contraindicated [id number] HTN, goal below 140/90 I10 Hyperlipidemia with target LDL less than 100 E78.5 Obesity, Class II, BMI 35.0-39.9, with comorbidity (see actual BMI) [id number] Controlled substance agreement signed Z79.899 Type 2 diabetes mellitus with hemoglobin A1c goal of less than 7.5% ([facility]) E11.9 Hypercalcemia E83.52 Elevated plasma metanephrines R79.89 Lower GI bleed K92.2 Irritable bowel syndrome with constipation K58.1 Ischemic colitis ([facility]) K55.9 Labs: CREATININE-OUTSIDE LAB(MG/DL) Jessica [...] Status 01/14/18 12:03P 01/14/18 6.2 FINAL HEMOGLOBIN, [id number] LAB(%) Jessica Dt/Tm Resulted Value Status 11/20/17 11/21/17 6.3 FINAL HEMOGLOBIN, A1C(%) Jessica Dt/Tm Resulted Value Status 05/19/17 12:11P 05/19/17 5.9 FINAL in this encounter Plan of Treatment Upcoming Encounters Date Type Specialty Care Team Description 07/23/2018 Office Visit Internal Medicine Alex Pinto MD [address] [place] [address] 07/30/2018 Office Visit Podiatry Chantel Moore, DPM [address] [place] [address] [place] [address] 08/12/2018 Nutrition Services Gastroenterology Nita Enriquez, RDN [address] [place] [address] [place] [id number] 06/01/2019 Imaging Radiology Health Maintenance Due Date [...] Diagnoses Diagnosis Asthma with severity to be d etermined COPD, moderate (HCC) Chronic airway obstruction, not elsewhere classified in this encounter
--- OUTSIDE RECORDS SUMMARY | 2023-06-18 03:46 | External Medical Summary | Summary of Care ---
Author Name Unknown Organization [place] [address] Phone Care Team Providers Care Asset Manager Name Role Phone Marcela Pinto MD Primary Care Provider [phone] Reason for Visit * Reason Comments Acute Patient states she i s having lower back pain that radiates to her side, headaches x3 weeks. Patient having a hard time walking due to pain. MEDICATION ADMINISTRATION Flu and/or Pne umo Inj Encounter Details Date Type Department Care Team Description 06/16/2018 Office Visit General Internal Medicine [facility] [address] [place] [address] Briseyda Barber MD [address] [place] [address] [phone] Acute right-sided thoracic back pain*;Chronic bilateral low back pain without sciatica;Asthma with severity to be determined;Generalized osteoarthritis;HTN, goal below 140/90;COPD, moderate (HCC);Irritable bowel syndrome with constipation;Hyperlipi demia with target LDL less than 100;Hypercalcemia;Noct urnal hypoxia;Need for prophylactic vaccination and inoculation against influenza;Ischemic colitis (HCC) Allergies Active Allergy Reactions Severity Noted Date Comments Valsartan 07/10/2010 Enalapril 05/21/2006 Escitalopram Oxalate Nausea/vomiting 10/11/2009 Nauseated Iodinated Diagnostic Agents Nausea/vomiting 05/2010 IV Contrast Lisinopril 05/21/2006 Metoprolol Tartrate 11/18/2006 Made pulse low Noti Oil-Black Currant-Vit E 07/10/2010 Verapamil 03/21/2004 Bupropion [...] 8 Active ondansetron ODT (ZOFRAN) 8 MG TBDPIndications:Daivd sea DISSOLVE 1 TABLET ON TONGUE EVERY [...] Active DilTIAZem HCl ER Beads 360 MG [id number]:HTN , goal below 130/80 TAKE 1 CAPSULE [...] for Pain, Breakthrough. 120 Tab 0 8 06/16/20 18 Discontinued PredniSONE (DELTASONE) 20 MG TabletIndications:C hronic bilateral low back pain without sciatica,Acute right-sided thoracic back pain Take 2 Tabs by mouth daily for 5 days. 10 Tab 0 8 06/21/20 18 as of this encounter Active Problems Problem [...] Hypoxemia 10/08/2011 10/30/2015 Genetic Sleep Disorder Research Other*[id number] 07/25/2011 05/15/2016 Obesity, morbid (more than 1 [...] Vital Sign Reading Time Taken Blood Pressure 118/58 06/16/2018 2:16 PM EDT Pulse 76 06/16/2018 2:16 PM EDT Temperature 36.8 C (98.3 F) 06/16/2018 2 :16 PM EDT Respiratory Rate 14 06/16/2018 2:16 PM EDT Oxygen Saturation - - Inhaled Oxygen Concentration - - Weight 110.7 kg (244 lb) 06/16/2018 2:1 6 PM EDT Height 165.1 cm (5' 5") 06/16/2018 2:16 PM EDT Body Mass Index 40.6 06/16/2018 2:16 PM EDT in this encounter Progress Notes * Briseyda Barber MD - 06/16/2018 2:28 PM EDT Formatting of this note may be different from the original. SUBJECTIVE: Nina Harrington is a 77 year old female. Chief Complaint Patient presents with Acute Patient states she is having lower back pain that radiates to her side, headaches x3 weeks. Patienthaving a hard time walking due to pain. MEDICATION ADMINISTRATION Flu and/or Pneumo Inj HPI: 77 year old YOfemale with PMH as listed below presents here for evaluation of back pain . Duration of illness: 2-3 weeks Symptoms present : Acute (Patient states she is having lower back pain that radiates to her side, headaches x3 weeks. Patient having a hard time walking due to pain. Symptoms not present: Fall, injury, bug bite, fever chills, burning urination Have same similar thing in past : History of sciatica Since symptoms started things getting : Same worse Used anything for this illness: Ibuprofen Aleve Other concerns or issues present : no Past Medical History: Diagnosis Date ACEI/ARB [...] 3 yrs / [facility] COLONOSCOPY, W/BIOPSY 03/20/12 hyperplastic polyps rpt 3 years. EGD, FLEXIBLE, DIAGNOSTIC 04/29/2014 normal/inpt [facility] EGD, FLEXIBLE, DIAGNOSTIC 05/29/2016 [facility] 11/08/2016 inflammatory changes, stomach lesion, repeat EUS 1.5 yrs/[facility] EGD, FLEXIBLE,W/ENDOSCOPIC US 05/01/2018 stromal cell (smooth muscle) neoplasm, CBD dilation, repeat 2 yrs (needs OV prior)/[facility] INCISIONAL HERNIA REPAIR, LAP, REDUCIBLE 09/29/12 Repair of incarcerated supraumbilical (incisional) hernia with [facility] mesh 09/29/12 LIGATE/CUT OVIDUCT(S) REMOVAL OF TONSILS, AGE 12+ age 11 REMOVE GALLBLADDER 1960 SIGMOIDOSCOPY, DIAGNOSTIC 04/29/2014 stool in rectum/inpt [facility] SMALL BOWEL ENDOSCOPY, REMOVE FOREIGN BODY mesh from prior hernia surgery, wrapped around small bowel. 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 Main Topics Smoking status: Never Smoker Smokeless tobacco: Never Used Alcohol use No Drug use: No Sexual activity: Not Currently Other Topics Concern Blood Transfusions No 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 Narrative Family History Problem Relation Age of Onset Cancer Mother breast Breast Cancer Mother Diabetes Aunt (Unspecified) JORDAN [OTHER] Son not diagnosed Asthma Daughter Lung Disorder Grandfather (Paternal) ?COPD vs asthma 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 COPD, moderate (HCC) J44.9 Allergic rhinitis J30.9 Diverticulitis of colon K57.32 Nocturnal hypoxia G47.34 Sleep apnea, obstructive G47.33 Incisional hernia K43.2 ACEI/ARB contraindicated [id number] HTN, goal below 140/90 I10 Hyperlipidemia with [...] constipation K58.1 Ischemic colitis ([facility]) K55.9 Current Outpatient Prescriptions Medication Sig Dispense Refill dicyclomine (BENTYL) 20 MG Tablet TAKE 1 TABLET BY MOUTH EVERY DAY 90 Tab 0 furosemide (LASIX) 40 MG Tablet TAKE 1 TABLET BY MOUTH DAILY NEEDED FOR EDEMA 30 Tab 11 HYDROcodone-acetaminophen 5-325 mg per tab 5-325 MG per tablet Take 1 Tab by mouth every 6 hours as needed for Pain, Breakthrough. 120 Tab 0 Terazosin HCl 2 MG Capsule TAKE ONE CAPSULE BY MOUTH EVERY DAY 90 Cap 1 DilTIAZem HCl ER Beads 360 MG CP24 TAKE 1 CAPSULE EVERY DAY 90 Cap 1 RaNITidine HCl 300 MG Tablet Take 0.5 Tabs by mouth at bedtime. 30 Tab 2 glimepiride (AMARYL) 4 MG Tablet TAKE 1 TABLET BY MOUTH IN THE MORNING AND 1/2 TABLET BY MOUTH IN THE EVENING 135 Tab 1 atorvaSTATin (LIPITOR) 40 MG Tablet [...] FOR 10 DAYS NEEDED FOR CONSTIPATION 0 albuterol sulfate (PROVENTIL) (2.5 MG/3ML) 0.083% nebulizer solution USE ONE NEBULIZER TREATMENT TWICE A DAY NEEDED FOR WORSENING ASTHMA. J45.909, J44.9 225 mL 1 Multiple Vitamins-Minerals (ONE DAILY MULTIVITAMIN WOMEN) [...] 1000 UNITS PO TABS one tablet daily omeprazole (PRILOSEC) 20 MG CPDR TAKE 1 CAPSULE TWICE DAILY 180 Cap 1 KLOR-CON M20 20 MEQ TBCR TAKE 1 TABLET BY MOUTH DAILY 90 Tab 1 Allergy: Review of patient's allergies indicates: Allergen Reactions Diovan [Valsartan] Enalapril Escitalopram Oxalate Nausea/vomiting Nauseated Iodinated Diagnostic Agents Nausea/vomiting IV Contrast Lisinopril Metoprolol Tartrate Made pulse low Noti Oil-Black Currant-Vit E Verapamil Wellbutrin [Bupropion Hcl] Makes pt sick in the stomach OBJECTIVE: BP 118/58 | Pulse 76 | Temp (Src) 98.3 (Tympanic) | Resp 14 | Ht 5' 5" (1.651m) | Wt 244 lbs (110.678kg) | BMI 40.6 kg/m | BSA 2.25 m General: alert, healthy and no distress Head: Normocephalic, No masses, lesions, tenderness or abnormalities Oropharynx: no exudate, no erythema, lips, buccal mucosa, and tongue normal and mucous membranes are moist Neck: supple, no adenopathy, no bruits, thyroid normal size, non-tender, without nodularity Lungs: chest symmetric with normal AP diameter, no chest deformities noted, no chest wall tenderness, lungs clear to auscultation Heart: regular rate & rhythm, no murmurs and no gallops Abdomen: abdomen soft, non-tender, normal bowel sounds and no masses or organomegaly, no tendernessin the abdomen, tenderness in the right flank area Extremities: no joint deformities, effusion, or inflammation, no edema, no clubbing, no cyanosis Skin: skin color, texture, turgor are normal, no rashes or significant lesions ASSESSMENT AND PLAN: M54.6 Acute right-sided thoracic back pain (primary encounter diagnosis) Likely muscular Heat Prednisone for 5 days M54.5, G89.29 Chronic bilateral low back pain without sciatica As above J45.909 Asthma with severity to be determined M15.9 Generalized osteoarthritis I10 Htn, goal below 140/90 J44.9 Copd, moderate (hcc) K58.1 Irritable bowel syndrome with constipation E78.5 Hyperlipidemia with target ldl less than 100 E83.52 Hypercalcemia G47.34 Nocturnal hypoxia Z23 Need for prophylactic vaccination and inoculation against influenza Plan: Influenza vacc, quad, pf, 6 months & up, 0.5 ml, im K55.9 Ischemic colitis (hcc) E66.9 Obesity, class ii, bmi 35.0-39.9, with comorbidity (see actual bmi) R10.9 Flank pain Plan: Site dip,dipstick only(78973) E11.9 Type 2 diabetes mellitus with hemoglobin a1c goal of less than 7.5% ([facility]) G47.33 Sleep apnea, obstructive J30.9 Allergic rhinitis, unspecified seasonality, unspecified trigger Follow up: Return if symptoms worsen or fail to improve. Treatment and plan discussed with patient and was given opportunity to ask questions which were answered . Patient verbalized understanding. This note was prepared with the help of fluency and if there is any mis-spelled words , sentences or something which doesn't represent the content of the subject that could be technical error and please refer to the author for clarification. Briseyda Barber MD 06/16/2018 2:28 PM * Tsering Austin LPN - 06/16/2018 2:20 PM EDT PRE - ADMINISTRATION DOCUMENTATION Are you allergic to latex? No Are you experiencing any cold symptoms or fever? No Have you had Guillain-Satsop Syndrome (an illness that causes paralysis)? No Have you had the flu shot in the past? YES Have you ever had a reaction to the flu shot? No Tsering Austin LPN, 06/16/2018 2:19 PM Immunization Administration Documentation Time Out Procedure Performed: Yes Patient Identified (Ask Name/Date of ): Yes Does the patient have a fever greater than 101 degrees today? No Patient allergic to latex? No VFC Stock: No Immunization(s) verified: Yes, Immunization Name: Flu, VIS Sheet(s) given: Yes Verified Side and Site: Yes - Deltoid left upper Verified Shot(s) with Parent(s)/Patient: Yes in this encounter Nursing Notes * Tsering Austin LPN - 06/16/2018 2:13 PM EDT Formatting of this note may be different from the original. Chief Complaint Patient presents with Acute Patient states she is having lower back pain that radiates to her side, headaches x3 weeks. Patienthaving a hard time walking due to pain. in this encounter Plan of Treatment Upcoming Encounters Date Type Specialty Care Team Description 07/20/2018 Nutrition Services Gastroenterology Nita Enriquez RDN [address] [place] [address] 07/23/2018 Office Visit Internal Medicine Marcela Pinto MD [address] [facility], [place] [address] [phone] 07/30/2018 Office Visit Podiatry Chantel Moore DPM [address] [place] [address] [phone] 06/01/2019 Imaging Radiology Health Maintenance Due Date [...] on fileas of this encounter Results * SITE DIP,DIPSTICK ONLY(32274) (06/16/2018 2:50 PM) Component Value Ref Range COLOR, UA yellow yellow - megan CLARITY, UA clear clear - clear GLUCOSE, UA neg neg - neg BILIRUBIN, UA small neg - neg KETONE, UA neg neg - neg SPECIFIC GRAVITY 1.030 1.003 - 1.030 BLOOD, UA neg neg - neg PH, UA 6.0 5.0 - 7.5 PROTEIN, UA 30+ neg - neg UROBILINOGEN, UA normal normal - normal NITRITE, UA neg neg - neg ESTERASE, UA neg neg - neg Specimen Performing Laborator y Urine in this encounter Visit Diagnoses Diagnosis Acute right-sided thoracic b ack pain - Primary Chronic bilateral low back p ain without sciatica Asthma with severity to be d etermined Generalized osteoarthritis Generalized osteoarthrosis, unspecified site HTN, goal below 140/90 Unspecified essential hypertension COPD, moderate (HCC) Chronic airway obstruction, not elsewhere classified Irritable bowel syndrome wit h constipation Irritable bowel syndrome Hyperlipidemia with target L DL less than 100 Other and unspecified hyperlipidemia Hypercalcemia Nocturnal hypoxia Hypoxemia Need for prophylactic vaccin ation and inoculation against influenza Ischemic colitis (HCC) Unspecified vascular insufficiency of intestine Obesity, Class II, BMI 35.0- 39.9, with comorbidity (see actual BMI) Morbid obesity Flank pain Abdominal pain, unspecified site Type 2 diabetes mellitus wit h hemoglobin A1c goal of less than 7.5% (HCC) Sleep apnea, obstructive Obstructive sleep apnea (adult) (pediatric) Allergic rhinitis, unspecifi ed seasonality, unspecified trigger in this encounter
--- OUTSIDE RECORDS SUMMARY | 2023-06-18 03:46 | External Medical Summary | Summary of Care ---
Author Name Unknown Organization [place] [address] Phone Care Team Providers Care Electrical Worker Name Role Phone Marcela Pinto MD Primary Care Provider [phone] Reason for Visit * Reason Comments eRx-Medication Refill Encounter Details Date Type Department Care Team Description 05/30/2018 Refill Gastroenterology, [facility] [address] [place] [address] Maurice Eagle, [address] [facility] [place] [address] [phone] Chronic constipation Allergies Active Allergy Reactions Severity Noted Date Comments Valsartan 07/10/2010 Enalapril 05/21/2006 Escitalopram Oxalate Nausea/vomiting 10/11/2009 Nauseated Iodinated Diagnostic Agents Nausea/vomiting 05/2010 IV Contrast Lisinopril 05/21/2006 Metoprolol Tartrate 11/18/2006 Made pulse low [place] [...] A1c goal of less than 7.5% ([facility]) TAKE 1 TABLET BY MOUTH IN [...] Active DilTIAZem HCl ER Beads 360 MG [id number]:HTN , goal below 130/80 TAKE 1 CAPSULE [...] EVERY DAY 90 Tab 0 8 Active dicyclomine (BENTYL) 20 MG TabletIndications:C hronic constipation TAKE 1 TABLET BY MOUTH EVERY DAY 90 Tab 2 7 05/30/20 18 Discontinued as of this encounter Active Problems Problem Noted Date Ischemic colitis ([facility]) 10/01/2017 Lower GI bleed 04/21/2017 Irritable bowel syndrome with constipati on 04/21/2017 Elevated plasma metanephrines 02/20/2017 Type 2 diabetes mellitus with hemoglobin A1c goal of less than 7.5% ([facility]) 02/12/2017 Hypercalcemia 02/12/2017 Controlled substance agreement [...] Diverticulitis of colon 07/25/2011 COPD, moderate ([facility]) 07/19/2011 Overview: Dr Bhatti every 6 months Allergic rhinitis 07/19/2011 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 Asthma with severity to be determined Carpal tunnel syndrome EDEMA dependent, ankles Generalized osteoarthritis ACEI/ARB contraindicated as of this encounter Resolved Problems Problem Noted Date Resolved Date DM (diabetes mellitus), type 2 ([facility]) 08/07/2015 06/25/2017 Nausea 09/05/2012 06/25/2017 Overview: ICD-10 update of inactive term HTN, GOAL BELOW 140/80 06/01/2012 6 Overview: Per HTN Protocol #27. Hypoxemia 10/08/2011 10/30/2015 Genetic Sleep Disorder Research Other*[id number] 07/25/2011 05/15/2016 Obesity, morbid (more than 1 00 lbs over ideal weight or BMI > 40) ([facility]) 01/09/2010 08/19/2017 Overview: Per Obesity Taxonomy [...] goal of less than 7.0% ([facility]) 08/10/2009 12/03/2012 Overview: Per Diabetes Taxonomy. ICD-10 update of inactive term Type 2 diabetes mellitus wit h hemoglobin A1c goal of less than 7.0% ([facility]) 08/10/2009 Overview: Per Diabetes Taxonomy. ICD-10 [...] Telephone Encounter - Marcela Pinto MD - 06/01/2018 3:43 PM EDT Noted * Telephone Encounter - Maurice Eagle, - 06/01/2018 2:07 PM EDT Signed Prescriptions: Disp Refills dicyclomine (BENTYL) 20 MG Tablet 90 Tab 0 Sig: TAKE 1 TABLET BY MOUTH EVERY DAY Authorizing Provider: MAURICE EAGLE * Telephone Encounter - Maurice Eagle, - 06/01/2018 2:07 PM EDT Further refills can probably be obtained from her primary care provider * Telephone Encounter - Randa Oswald RN - 06/01/2018 1:27 PM EDT Pending Prescriptions: Disp Refills dicyclomine (BENTYL) 20 MG Tablet [Pharma*90 Tab 2 Sig: TAKE 1 TABLET BY MOUTH EVERY DAY * Telephone Encounter - Randa Oswald RN - 06/01/2018 1:22 PM EDT Formatting of this note may be different from the original. Patient seen in the office 07/01/[address] Eagle. Seen 04/13/[address] Eagle--I was unsure if you wanted the refill request sent to you or forwarded on to Dr. Coello. Pending Prescriptions: Disp Refills dicyclomine (BENTYL) 20 MG Tablet [Pharma*90 Tab 2 Sig: TAKE 1 TABLET BY MOUTH EVERY DAY Last Office Visit: 04/13/2018 Next Office Visit: No Future Appointments If no future appointments scheduled, and last appointment is greater than a year ago, please schedule patient for a follow-up appointment Last date the medication was ordered: 09/16/17 Patient Phone Numbers Labs: Lab Results Component Value Date/Time CREAT 0.95 03/15/2018 CREAT 1.0 03/13/2018 11:53 AM POTASSIUM 4.4 03/13/2018 11:53 AM TSH 0.60 01/14/2018 12:03 PM LDLCALC 118 01/14/2018 12:03 PM LDLDIRECT 114 01/14/2018 12:03 PM ALT 23 03/13/2018 11:53 AM HGBA1C 6.2 01/14/2018 12:03 PM in this encounter Plan of Treatment Upcoming Encounters Date Type Specialty Care Team Description 06/10/2018 Nutrition Services Gastroenterology Nita Enriquez RDN [address] [place] [address] 07/23/2018 Office Visit Internal Medicine Marcela Pinto MD [address] [place] [address] [phone] 07/30/2018 Office Visit Podiatry Chantel Moore DPM [...] fileas of this encounter Visit Diagnoses Diagnosis Chronic constipation Unspecified constipation in this encounter
--- OUTSIDE RECORDS SUMMARY | 2023-06-18 03:46 | External Medical Summary | Summary of Care ---
Author Name Unknown Organization [place] [address] Phone Care Team Providers Care Public Address System Mechanic Name Role Phone Alex Pinto MD Primary Care Provider [phone] Reason for Visit * Reason Comments eRx-Medication Refill Encounter Details Date Type Department Care Team Description 07/12/2018 Refill General Internal Medicine [facility] [address] [place] [address] Alex Pinto MD [address] [place] [address] [phone] Asthma with severity to be determined Allergies Active Allergy Reactions Severity Noted Date Comments Valsartan 07/10/2010 Enalapril 05/21/2006 Escitalopram Oxalate Nausea/vomiting 10/11/2009 Nauseated Iodinated Diagnostic Agents Nausea/vomiting 05/2010 IV Contrast Lisinopril 05/21/2006 Metoprolol Tartrate 11/18/2006 Made pulse low Free Soil Oil-Black Currant-Vit E 07/10/2010 Verapamil 03/21/2004 Bupropion [...] [facility]) USE TO TEST BLOOD SUGAR 4 [...] Active DilTIAZem HCl ER Beads 360 MG [id number]:HTN , goal below 130/80 TAKE 1 CAPSULE [...] 90 Tab 1 8 07/12/20 18 Discontinued as of this encounter Active Problems Problem Noted Date Ischemic colitis ([facility]) 10/01/2017 Lower GI bleed 04/21/2017 Irritable bowel syndrome with constipati on 04/21/2017 Elevated plasma metanephrines 02/20/2017 Type 2 diabetes mellitus with hemoglobin A1c goal of less than 7.5% ([facility]) 02/12/2017 Hypercalcemia 02/12/2017 Controlled substance agreement [...] AHP Diverticulitis of colon 07/25/2011 COPD, moderate ([facility]) 07/19/2011 Overview: Dr Bhatti every 6 months Allergic rhinitis 07/19/2011 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 Asthma with severity to be determined Carpal tunnel syndrome EDEMA dependent, ankles Generalized osteoarthritis ACEI/ARB contraindicated as of this encounter Resolved Problems Problem Noted Date Resolved Date DM (diabetes mellitus), type 2 ([facility]) 08/07/2015 06/25/2017 Nausea 09/05/2012 06/25/2017 Overview: ICD-10 update of inactive term HTN, GOAL BELOW 140/80 06/01/2012 6 Overview: Per HTN Protocol #27. Hypoxemia 10/08/2011 10/30/2015 Genetic Sleep Disorder Research Other*[id number] 07/25/2011 05/15/2016 Obesity, morbid (more than 1 [...] less than 7.0% ([facility]) 08/10/2009 12/03/2012 Overview: Per Diabetes Taxonomy. ICD-10 update of inactive term Type 2 diabetes mellitus wit h hemoglobin A1c goal of less than 7.0% ([facility]) 08/10/2009 Overview: Per Diabetes Taxonomy. ICD-10 [...] Telephone Encounter - Alex Pinto MD - 07/14/2018 11:08 AM EDT Signed Prescriptions: Disp Refills zafirlukast (ACCOLATE) 20 MG Tablet 90 Tab 0 Sig: TAKE 1 TABLET BY MOUTH EVERY DAY Authorizing Provider: ALEX PINTO * Telephone Encounter - Joanna Ontiveros LPN - 07/13/2018 1:12 PM EDT Pending Prescriptions: Disp Refills zafirlukast (ACCOLATE) 20 MG Tablet [Phar*90 Tab 0 Sig: TAKE 1 TABLET BY MOUTH EVERY DAY * Telephone Encounter - Joanna Ontiveros LPN - 07/13/2018 1:12 PM EDT Formatting of this note may be different from the original. Pending Prescriptions: Disp Refills zafirlukast (ACCOLATE) 20 MG Tablet [Phar*90 Tab 0 Sig: TAKE 1 TABLET BY MOUTH EVERY DAY Last Office Visit: 06/16/2018 Next Office Visit: 07/23/2018 Scheduled Provider(s): Alex Pinto MD Last date the medication was ordered: 02/25/18 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 COPD, moderate (HCC) J44.9 Allergic rhinitis J30.9 Diverticulitis of colon K57.32 Nocturnal hypoxia G47.34 Sleep apnea, obstructive G47.33 Incisional hernia K43.2 ACEI/ARB contraindicated [id number] HTN, goal below 140/90 I10 Hyperlipidemia with [...] Ischemic colitis ([facility]) K55.9 Labs: CREATININE-OUTSIDE LAB(MG/DL) Jessica Dt/Tm [...] Status 01/14/18 12:03P 01/14/18 6.2 FINAL HEMOGLOBIN, [id number] LAB(%) Jessica Dt/Tm Resulted Value Status 11/20/17 11/21/17 6.3 FINAL HEMOGLOBIN, A1C(%) Jessica Dt/Tm Resulted Value Status 05/19/17 12:11P 05/19/17 5.9 FINAL in this encounter Plan of Treatment Upcoming Encounters Date Type Specialty Care Team Description 07/20/2018 Nutrition Services Gastroenterology Nita Enriquez, IWON[place] [address] [place] [address] 07/23/2018 Office Visit Internal Medicine Alex Pinto MD [address] [place] [address] [phone] 07/30/2018 Office Visit Podiatry Chantel Moore DPM [address] [place] [address] 06/01/2019 Imaging Radiology Health Maintenance Due Date Last Done Comments Zoster Vaccines HMT (2 of 3) 08/31/2012 07/06/2012 DIABETES-HGBA1C EVERY 6 MONTHS 07/16/2018 0 01/14/2018, [...]
--- OUTSIDE RECORDS SUMMARY | 2023-06-18 03:46 | External Medical Summary | Summary of Care ---
Author Name Unknown Organization [place] [address] Phone Care Team Providers Care Wire Tinner Name Role Phone Marcela Pinto MD Primary Care Provider [phone] Encounter Details Date Type Department Care Team Description 04/11/2005 Orders Only Vini Kee MD [address] [place] [address] Dr Mahan [address] [place] [id number] Allergies Active Allergy Reactions Severity Noted Date Comments Valsartan 07/10/2010 Enalapril 05/21/2006 Escitalopram Oxalate Nausea/vomiting 10/11/2009 Nauseated Iodinated Diagnostic Agents Nausea/vomiting 05/2010 IV Contrast Lisinopril 05/21/2006 Metoprolol Tartrate 11/18/2006 Made pulse low [place] Oil-Black Currant-Vit E 07/10/2010 Verapamil 03/21/2004 Bupropion Hcl 10/30/2009 Makes pt sick in the stomach as of this encounter Medications No known medicationsas of this encounter Active Problems Problem Noted Date Ischemic colitis (HCC) 10/01/2017 Lower GI bleed 04/21/2017 Irritable bowel syndrome with constipati on 04/21/2017 Elevated plasma metanephrines 02/20/2017 Type 2 diabetes mellitus with hemoglobin A1c goal of less than 7.5% (HCC) 02/12/2017 HYPERCALCEMIA 02/12/2017 Controlled substance agreement signed Hyperlipidemia with target LDL less than 100 05/15/2016 Obesity, Class II, BMI 35.0-39.9, with c omorbidity (see actual BMI) 05/15/2016 HTN, goal below 140/90 12/18/2015 Overview: Per HTN Protocol #27. INCISIONAL HERNIA 10/08/2012 Nocturnal hypoxia 10/02/2011 Overview: 09/27/11 Nocturnal pulse ox 2 LPM -- low 45%, mean 85%, <89% 6:18 hrs, SOREN 18.7 AHP Sleep apnea, obstructive 10/02/2011 Overview: 4 LPM qhs 09/27/11 2 LPM -- low 45%, mean 85%, <89% 6:18 hrs, SOREN 18.7 Refusing CPAP AHP DIVERTICULITIS OF COLON W/O HEMORR 07/25 COPD, moderate ([facility]) 07/19/2011 Overview: Dr Bhatti every 6 months ALLERGIC RHINITIS NOS 07/19/2011 B-NEOPLASM, ADRENAL GLAND 01/09/2010 Asthma with severity to be determined CARPAL TUNNEL SYNDROME EDEMA dependent, ankles GENERAL OSTEOARTHROSIS, SITE NOS ACEI/ARB CONTRAINDICATED as of this encounter Resolved Problems Problem Noted Date Resolved Date DM (diabetes mellitus), type 2 ([facility]) 08/07/2015 06/25/2017 Nausea 09/05/2012 06/25/2017 Overview: ICD-10 update of inactive term HTN, GOAL BELOW 140/80 06/01/2012 6 Overview: Per HTN Protocol #27. Hypoxemia 10/08/2011 10/30/2015 GENETIC SLEEP DISORDER RESEARCH OTHER*[id number] 07/25/2011 05/15/2016 Obesity, morbid (more than 1 [...] OBESITY, UNSPECIFIED 01/09/2010 Overview: Per Obesity Taxonomy MIXED HYPERLIPIDEMIA 09/19/2009 Overview: Per Lipid Taxonomy. as of this encounter 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 Tobacco Use Types Packs/Day Years Used Date Never Smoker Alcohol Use Drinks/Week oz/Week Comments No Sex Assigned at Date Recorded Not on file as of this encounter Procedure Notes * Dav Kasper MD - 04/12/2005 3:43 PM EDT Associated Order(s): MAMMOGRAM SCREENING-BILATERAL Comparison is made to films from 02/25/2003 (bilateral). There is no significant interval change. Bilateral Breast Findings: The breasts are heterogeneously dense. This may lower the sensitivity of mammography. No significant masses, calcifications or other abnormalities are seen. IMPRESSION: BILATERAL BREASTS - Category 1 Negative, no evidence of malignancy. Normal interval follow-up is recommended in 12 months. OVERALL ASSESSMENT - NEGATIVE END OF IMPRESSION in this encounter Plan of Treatment Upcoming Encounters Date Type Specialty Care Team Description 06/10/2018 Nutrition Services Gastroenterology Nita Enriquez, RDN [address] [place] [address] [place] [address] 07/23/2018 Office Visit Internal Medicine Marcela Pinto MD [address] [place] [address] [phone] 07/30/2018 Office Visit Podiatry Chantel Moore DPM [address] [place] [address] [place] [id number] 06/01/2019 Imaging Radiology Health Maintenance Due Date [...] on fileas of this encounter Results * MAMMOGRAM SCREENING-BILATERAL (04/11/2005 1:29 PM) Transcriptions Dav Kasper MD - 04/12/2005 3:43 PM EDT Comparison is made to films from 02/25/2003 (bilateral). There is nosignificant interval change. Bilateral Breast Findings: The breasts are heterogeneously dense. This may lower the sensitivity ofmammography. No significant masses, calcifications or other abnormalities are seen.
--- OUTSIDE RECORDS SUMMARY | 2023-06-18 03:46 | External Medical Summary | Summary of Care ---
Author Name Unknown Organization [place] [address] Phone Care Team Providers Care Dog Handler Name Role Phone Alex Pinto MD Primary Care Provider Reason for Visit * Reason Comments MEDICATION REFILL Encounter Details Date Type Department Care Team Description 06/16/2018 Refill General Internal Medicine [facility] [address] [place] [address] Alex Pinto MD [address] [place] [address] [phone] GENERAL OSTEOARTHROSIS Allergies Active Allergy Reactions Severity Noted Date Comments Valsartan 07/10/2010 Enalapril 05/21/2006 Escitalopram Oxalate Nausea/vomiting 10/11/2009 Nauseated Iodinated Diagnostic Agents Nausea/vomiting 05/2010 IV Contrast Lisinopril 05/21/2006 Metoprolol Tartrate 11/18/2006 Made pulse low [place] Oil-Black Currant-Vit E 07/10/2010 Verapamil 03/21/2004 [...] Active DilTIAZem HCl ER Beads 360 MG WB18Ldsnchybnmu:HTN , goal below 130/80 TAKE 1 CAPSULE [...] EVERY DAY 90 Tab 0 8 Active PredniSONE (DELTASONE) 20 MG TabletIndications:C hronic bilateral low back pain without sciatica,Acute right-sided thoracic back pain Take 2 Tabs by mouth daily for 5 days. 10 Tab 0 8 06/21/20 18 Active HYDROcodone-acetami nophen 5-325 mg per [...] 120 Tab 0 8 06/16/20 18 Discontinued as of this encounter Active Problems Problem Noted Date Ischemic colitis ([facility]) 10/01/2017 Lower GI bleed 04/21/2017 Irritable bowel syndrome with constipati on 04/21/2017 Elevated plasma metanephrines 02/20/2017 Type 2 diabetes mellitus with hemoglobin A1c goal of less than 7.5% ([facility]) 02/12/2017 Hypercalcemia 02/12/2017 Controlled substance [...] AHP Diverticulitis of colon 07/25/2011 COPD, moderate ([facility]) 07/19/2011 Overview: Dr Bhatti every 6 months Allergic rhinitis 07/19/2011 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 Asthma with severity to be determined Carpal tunnel syndrome EDEMA dependent, ankles Generalized osteoarthritis ACEI/ARB contraindicated as of this encounter Resolved Problems Problem Noted Date Resolved Date DM (diabetes mellitus), type 2 ([facility]) 08/07/2015 06/25/2017 Nausea 09/05/2012 06/25/2017 Overview: ICD-10 update of inactive term HTN, GOAL BELOW 140/80 06/01/2012 6 Overview: Per HTN Protocol #27. Hypoxemia 10/08/2011 10/30/2015 Genetic Sleep Disorder Research Other*[id number] 07/25/2011 05/15/2016 Obesity, morbid (more than 1 00 lbs over ideal weight or BMI > 40) ([facility]) 01/09/2010 08/19/2017 Overview: Per Obesity [...] of less than 7.0% ([facility]) 08/10/2009 12/03/2012 Overview: Per Diabetes Taxonomy. ICD-10 update of inactive term Type 2 diabetes mellitus wit h hemoglobin A1c goal of less than 7.0% ([facility]) 08/10/2009 Overview: Per Diabetes Taxonomy. [...] Split 08/04/2014,07/26/2013,06/26/2012,07/14,08/16/2010,07/18/2009,09/01/20 08,08/12/2006 TD, Preservative Free 02/28/2009 TDAP (age 10 and older)(Boostrix) 06/04/2018 Varicella Zoster Vaccine (Adult) 07/06/2012 as of this encounter 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 Tobacco Use Types Packs/Day Years Used Date Never Smoker Smokeless Tobacco: Never Used Alcohol Use Drinks/Week oz/Week Comments No Sex Assigned at Date Recorded Not on file as of this encounter Miscellaneous Notes * Telephone Encounter - Alex Pinto MD - 06/16/2018 3:11 PM EDT Signed Prescriptions: Disp RefillsHYDROcodone-acetaminophen 5-325 mg per tab*120 [id number]: Take 1 Tab by mouth every 6 hours as needed for Pain,Mild.Authorizing Provider: ALEX PINTO * Telephone Encounter - Alex Pinto MD - 06/16/2018 3:11 PM EDT Formatting of this note may be different from the original. I have reviewed the patients controlled substance dispensing history in the Prescription Drug Monitoring Program in compliance with the [facility] regulations before prescribing a controlled substance. Last [...] Results Review. * Telephone Encounter - Renetta Gu LPN - 06/16/2018 3:09 PM EDT Formatting of this note may be different from the original. No prescriptions requested or ordered in this encounter Last Office Visit: 06/16/2018 Next Office Visit: [...] Description 07/20/2018 Nutrition Services Gastroenterology Nita Enriquez, RDN [address] [place] [address] [place] [address] 07/23/2018 Office Visit Internal Medicine Alex Pinto MD [address] [place] [address] [place] [address] [phone] 07/30/2018 Office Visit Podiatry Chantel Moore DPM [address] [place] [address] [place] [address] 06/01/2019 Imaging Radiology Health Maintenance Due Date Last Done Comments DTaP,Tdap,and Td Vaccines (1 - Tdap) 03/01/2009 02/28/2009 Zoster Vaccines HMT (2 of 3) 08/31/2012 07/06/2012 *ASTHMA ACTION PLAN-ADULT YEARLY 10/05/2014 Influenza Vaccine [...]
--- OUTSIDE RECORDS SUMMARY | 2023-06-18 03:47 | External Medical Summary | Summary of Care ---
Author Name Unknown Organization [place] [address] Phone Care Team Providers Care Health Club Manager Name Role Phone Marcela Pinto MD Primary Care Provider [phone] Reason for Visit * Reason Comments ADVICE Encounter Details Date Type Department Care Team Description 05/04/2018 Telephone Gastroenterology, [facility] [address] [facility] [place] [address] [place], [address] [facility] [place] [address] [phone] ADVICE Allergies Active Allergy Reactions Severity Noted Date Comments Valsartan 07/10/2010 Enalapril 05/21/2006 Escitalopram Oxalate Nausea/vomiting 10/11/2009 Nauseated Iodinated Diagnostic Agents Nausea/vomiting 05/2010 IV Contrast Lisinopril 05/21/2006 Metoprolol Tartrate 11/18/2006 Made pulse low [place] Oil-Black Currant-Vit E 07/10/2010 Verapamil 03/21/2004 Bupropion [...] than 7.0% ([facility]) USE TO TEST BLOOD SUGAR 4 TIMES A DAY FOR DIAGNOSIS CODE OF E11.9 100 Strip 5 02/25/2017 Active aspirin enteric coated 81 MG TBEC Take 1 Tab by mouth daily. 100 Tab 3 03/16/2017 Active Multiple Vitamins-Minerals (ONE DAILY MULTIVITAMIN WOMEN) TABS one pill each day 04/21/2017 Active furosemide (LASIX) 40 MG TabletIndications:Es sential hypertension with goal blood pressure less than 130/80 One pill daily as needed for edema. 30 Tab 11 06/09/2017 Active albuterol sulfate (PROVENTIL) (2.5 MG/3ML) 0.083% nebulizer solutionIndications: Asthma with severity to be determined,COPD, moderate ([facility]) USE ONE NEBULIZER TREATMENT TWICE A DAY NEEDED FOR WORSENING ASTHMA. J45.909, J44.9 225 mL 1 08/27/2017 Active dicyclomine (BENTYL) 20 MG TabletIndications:Ch ronic constipation TAKE 1 TABLET BY MOUTH EVERY DAY 90 Tab 2 09/16/2017 Active Terazosin HCl 2 MG Capsule TAKE ONE CAPSULE BY MOUTH EVERY DAY 90 Cap 1 11/03/2017 Active omeprazole (PRILOSEC) 20 MG CPDRIndications:Isch emic colitis (HCC) TAKE 1 CAPSULE TWICE DAILY 180 Cap 1 11/18/2017 Active [facility] SENNA 8.6 MG Tablet TAKE 2 TABLETS BY MOUTH EVERY EVENING FOR 10 DAYS NEEDED FOR CONSTIPATION 0 11/26/2017 Active ondansetron ODT (ZOFRAN) 8 MG TBDPIndications:Naus ea DISSOLVE 1 TABLET ON TONGUE EVERY 8 HOURS NEEDED FOR NAUSEA 60 Tab 5 12/16/2017 Active COMBIVENT RESPIMAT 20-100 MCG/ACT InhalerIndications:A sthma with severity to be determined,COPD, moderate (HCC) TAKE 1 PUFF BY MOUTH 4 TIMES A DAY 1 Inhaler 5 02/03/2018 Active zafirlukast (ACCOLATE) 20 MG TabletIndications:As thma with severity to be determined TAKE 1 TABLET EVERY DAY 90 Tab 1 02/25/2018 Active busPIRone (BUSPAR) 15 MG TabletIndications:GA D [...] than 7.5% ([facility]) TAKE 1 TABLET BY MOUTH IN THE MORNING AND 1/2 TABLET BY MOUTH IN THE EVENING 135 Tab 1 03/20/2018 Active KLOR-CON M20 20 MEQ TBCRIndications:HTN, goal below 140/90 TAKE 1 TABLET BY MOUTH DAILY 90 Tab 1 03/20/2018 Active HYDROcodone-acetamin ophen 5-325 mg per tab 5-325 MG per tabletIndications:Ge neralized osteoarthritis Take 1 Tab by mouth every 6 hours as needed for Pain, Breakthrough. 120 Tab 0 03/31/2018 Active RaNITidine HCl 300 MG Tablet Take 0.5 Tabs by mouth at bedtime. 30 Tab 2 04/13/2018 Active DilTIAZem HCl ER Beads 360 MG FA88Ymylpjqfauy:HTN, goal below 130/80 TAKE 1 CAPSULE EVERY DAY 90 Cap 1 05/01/2018 Active as of this encounter Active Problems Problem Noted Date Ischemic colitis ([facility]) 10/01/2017 Lower GI bleed 04/21/2017 Irritable bowel syndrome with constipati on 04/21/2017 Elevated plasma metanephrines 02/20/2017 Type 2 diabetes mellitus with hemoglobin A1c goal of less than 7.5% ([facility]) 02/12/2017 Hypercalcemia 02/12/2017 Controlled substance agreement signed [...] AHP Diverticulitis of colon 07/25/2011 COPD, moderate ([facility]) 07/19/2011 Overview: Dr Bhatti every 6 months Allergic rhinitis 07/19/2011 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 Asthma with severity to be determined Carpal tunnel syndrome EDEMA dependent, ankles Generalized osteoarthritis ACEI/ARB contraindicated as of this encounter Resolved Problems Problem Noted Date Resolved Date DM (diabetes mellitus), type 2 ([facility]) 08/07/2015 06/25/2017 Nausea 09/05/2012 06/25/2017 Overview: ICD-10 update of inactive term HTN, GOAL BELOW 140/80 06/01/2012 6 Overview: Per HTN Protocol #27. Hypoxemia 10/08/2011 10/30/2015 Genetic Sleep Disorder Research Other*[id number] 07/25/2011 05/15/2016 Obesity, morbid (more than 1 00 lbs over ideal weight or BMI > 40) ([facility]) 01/09/2010 08/19/2017 Overview: Per Obesity Taxonomy HTN, [...] Telephone Encounter - Cristiane Rapp OSA - 05/04/2018 12:46 PM EDT Added to recall * Telephone Encounter - [place]ul[place] DO - 05/04/2018 11:26 AM EDT Patient should be on recall list for a surveillance EUS in 2years. It may be best to have her f/u in the office in 18 to 24 months. in this encounter Plan of Treatment Upcoming Encounters Date Type Specialty Care Team Description 05/15/2018 Office Visit Internal Medicine Marcela Pinto MD [address] [place] [address] [phone] 05/29/2018 Imaging Radiology 06/10/2018 Nutrition Services Gastroenterology Nita Enriquez, IWONAN [address] [place] [address] [place] [address] [phone] 07/23/2018 Office Visit Internal Medicine Marcela Pinto MD [address] [place] [address] [phone] 07/30/2018 Office Visit Podiatry Chantel Moore DPM [address] [place] [address] [place] [id number] Health Maintenance Due Date Last Done Comments [...]
--- OUTSIDE RECORDS SUMMARY | 2023-06-18 03:47 | External Medical Summary | Summary of Care ---
Author Name Unknown Organization [place] [address] Phone Care Team Providers Care Senior Instructional Designer Name Role Phone Marcela Pinto MD Primary Care Provider [phone] Reason for Visit * Reason Comments Update finesse's case management Encounter Details Date Type Department Care Team Description 05/01/2018 Operater Telephone Ancillary [facility] [address] [place] [address] Sigrid Montano RN [address] [place] [address] [phone] Update (finesse's); case management Allergies Active Allergy Reactions Severity Noted Date Comments Valsartan 07/10/2010 Enalapril 05/21/2006 Escitalopram Oxalate Nausea/vomiting 10/11/2009 Nauseated Iodinated Diagnostic Agents Nausea/vomiting 05/2010 IV Contrast Lisinopril 05/21/2006 Metoprolol Tartrate 11/18/2006 Made pulse low [place] Oil-Black Currant-Vit E 07/10/2010 Verapamil 03/21/2004 Bupropion [...] less than 7.0% ([facility]) USE TO TEST BLOOD [...] Active DilTIAZem HCl ER Beads 360 MG NO23Ciqhchdwqxn:HTN, goal below 130/80 TAKE 1 CAPSULE EVERY DAY 90 Cap 1 05/01/2018 Active as of this encounter Active Problems Problem Noted Date Ischemic colitis (HCC) 10/01/2017 Lower GI bleed 04/21/2017 Irritable bowel syndrome with constipati on 04/21/2017 Elevated plasma metanephrines 02/20/2017 Type 2 diabetes mellitus with hemoglobin A1c goal of less than 7.5% ([facility]) 02/12/2017 Hypercalcemia 02/12/2017 Controlled substance [...] AHP Diverticulitis of colon 07/25/2011 COPD, moderate ([facility]) 07/19/2011 Overview: Dr Bhatti every 6 months Allergic rhinitis 07/19/2011 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 Asthma with severity to be determined Carpal tunnel syndrome EDEMA dependent, ankles Generalized osteoarthritis ACEI/ARB contraindicated as of this encounter Resolved Problems Problem Noted Date Resolved Date DM (diabetes mellitus), type 2 ([facility]) 08/07/2015 06/25/2017 Nausea 09/05/2012 06/25/2017 Overview: ICD-10 update of inactive term HTN, GOAL BELOW 140/80 06/01/2012 6 Overview: Per HTN Protocol #27. Hypoxemia 10/08/2011 10/30/2015 Genetic Sleep Disorder Research Other*[id number] 07/25/2011 05/15/2016 Obesity, morbid (more than 1 00 lbs over ideal weight or BMI > 40) ([facility]) 01/09/2010 08/19/2017 Overview: Per Obesity [...] Telephone Encounter - Marcela Pinto MD - 05/04/2018 12:02 PM EDT Noted. Will discuss everything including path at her next visit with us. Thanks. * Telephone Encounter - Sigrid Montano RN - 05/01/2018 3:25 PM EDT Return call from patient Reports she took doxy for 6 weeks, finished in March sometime Still having stomach queasiness and her hands and knees hurt Blood sugars remain good, this morning 122 Denies any other physical complaints Had endoscopy with Dr. [place] today at [facility] He told her to follow up with PCP after results come in end of next week (I had scheduling call herto arrange) She denies any other needs or concerns at this time FYI to PCP and new window caser in this encounter Plan of Treatment Upcoming Encounters Date Type Specialty Care Team Description 05/15/2018 Office Visit Internal Medicine Marcela Pinto MD [address] [place] [address] [phone] 05/29/2018 Imaging Radiology 06/10/2018 Nutrition Services Gastroenterology Nita Enriquez, IWONAN [address] [place] [address] [place] [id number] 07/23/2018 Office Visit Internal Medicine Marcela Pinto MD [address] [facility] [address] [phone] 07/30/2018 Office Visit Podiatry Chantel Moore DPM [address] [place] [address] [place] [address] [phone] Health Maintenance Due Date Last Done Comments [...]
--- OUTSIDE RECORDS SUMMARY | 2023-06-18 03:47 | External Medical Summary | Summary of Care ---
Author Name Unknown Organization [place] [address] Phone Care Team Providers Care Operator Vacuum Name Role Phone Marcela Pinto MD Primary Care Provider [phone] Reason for Visit * Reason Comments eRx-Medication Refill Encounter Details Date Type Department Care Team Description 05/01/2018 Refill General Internal Medicine [facility] [address] [place] [address] Marcela Pinto MD [address] [place] [address] [phone] HTN, goal below 130/80 Allergies Active Allergy Reactions Severity Noted Date Comments Valsartan 07/10/2010 Enalapril 05/21/2006 Escitalopram Oxalate Nausea/vomiting 10/11/2009 Nauseated Iodinated Diagnostic Agents Nausea/vomiting 05/2010 IV Contrast Lisinopril 05/21/2006 Metoprolol Tartrate 11/18/2006 Made pulse low [place] Oil-Black Currant-Vit E 07/10/2010 Verapamil 03/21/2004 Bupropion [...] less than 7.0% ([facility]) USE TO TEST BLOOD SUGAR 4 [...] TWICE DAILY 180 Cap 1 8 Active [facility] SENNA 8.6 [...] less than 7.5% ([facility]) TAKE 1 TABLET BY MOUTH IN [...] Active DilTIAZem HCl ER Beads 360 MG SN47Fqgfqypvoqk:HTN , goal below 130/80 TAKE 1 CAPSULE EVERY DAY 90 Cap 1 8 Active DilTIAZem HCl ER Coated Beads 360 MG GA53Yzvaeuntwsg:HTN , goal below 130/80 TAKE 1 CAPSULE EVERY DAY 90 Cap 1 8 05/01/20 18 Discontinued as of this encounter Active Problems Problem Noted Date Ischemic colitis ([facility]) 10/01/2017 Lower GI bleed 04/21/2017 Irritable bowel syndrome with constipati on 04/21/2017 Elevated plasma metanephrines 02/20/2017 Type 2 diabetes mellitus with hemoglobin A1c goal of less than 7.5% ([facility]) 02/12/2017 Hypercalcemia 02/12/2017 Controlled substance agreement [...] of colon 07/25/2011 COPD, moderate ([facility]) 07/19/2011 Overview: Dr Bhatti every 6 months Allergic rhinitis 07/19/2011 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 Asthma with severity to be determined Carpal tunnel syndrome EDEMA dependent, ankles Generalized osteoarthritis ACEI/ARB contraindicated as of this encounter Resolved Problems Problem Noted Date Resolved Date DM (diabetes mellitus), type 2 ([facility]) 08/07/2015 06/25/2017 Nausea 09/05/2012 06/25/2017 Overview: ICD-10 update of inactive term HTN, GOAL BELOW 140/80 06/01/2012 6 Overview: Per HTN Protocol #27. Hypoxemia 10/08/2011 10/30/2015 Genetic Sleep Disorder Research Other*[id number] 07/25/2011 05/15/2016 Obesity, morbid (more than 1 00 lbs over ideal weight or BMI > 40) ([facility]) 01/09/2010 08/19/2017 Overview: Per Obesity Taxonomy [...] less than 7.0% ([facility]) 08/10/2009 12/03/2012 Overview: Per Diabetes Taxonomy. ICD-10 update of inactive term Type 2 diabetes mellitus wit h hemoglobin A1c goal of less than 7.0% ([facility]) 08/10/2009 Overview: Per Diabetes Taxonomy. ICD-10 [...] Telephone Encounter - Marcela Pinto MD - 05/01/2018 8:37 AM EDT Signed Prescriptions: Disp Refills DilTIAZem HCl ER Beads 360 MG CP24 90 Cap 1 Sig: TAKE 1 CAPSULE EVERY DAY Authorizing Provider: MARCELA PINTO * Telephone Encounter - Vani Pelletier LPN - 05/01/2018 7:35 AM EDT Pending Prescriptions: Disp Refills DilTIAZem HCl ER Beads 360 MG CP24 [Pharm*90 Cap 1 Sig: TAKE 1 CAPSULE EVERY DAY * Telephone Encounter - Vani Pelletier LPN - 05/01/2018 7:34 AM EDT Formatting of this note may be different from the original. Pending Prescriptions: Disp Refills DilTIAZem HCl ER Beads 360 MG CP24 [Pharm*90 Cap 1 Sig: TAKE 1 CAPSULE EVERY DAY Last Office Visit: 03/31/2018 Next Office Visit: 07/23/2018 Scheduled Provider(s): Marcela Pinto MD Last date the medication was ordered: 11/07/17 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 COPD, moderate (HCC) J44.9 Allergic rhinitis J30.9 Diverticulitis of colon K57.32 Nocturnal hypoxia G47.34 Sleep apnea, obstructive G47.33 Incisional hernia K43.2 ACEI/ARB contraindicated [id number] HTN, goal below 140/90 I10 Hyperlipidemia with [...] Ischemic colitis ([facility]) K55.9 Labs: CREATININE-OUTSIDE LAB(MG/DL) Jessica Dt/Tm [...] Status 01/14/18 12:03P 01/14/18 6.2 FINAL HEMOGLOBIN, [id number] LAB(%) Jessica Dt/Tm Resulted Value Status 11/20/17 11/21/17 6.3 FINAL HEMOGLOBIN, A1C(%) Jessica Dt/Tm Resulted Value Status 05/19/17 12:11P 05/19/17 5.9 FINAL in this encounter Plan of Treatment Upcoming Encounters Date Type Specialty Care Team Description 05/01/2018 Procedure Only [facility] [place] [address] [facility] [address] Arrived 05/29/2018 Imaging Radiology 06/10/2018 Nutrition Services Gastroenterology Nita Enriquez RDN [address] [place] [address] [place] [address] 07/23/2018 Office Visit Internal Medicine Marcela Pinto MD [address] [place] [address] [phone] 07/30/2018 Office Visit Podiatry Moore, Chantel Michelle, DPM [address] [place] [address] [place] [address] [phone] Health Maintenance Due Date Last Done Comments [...]
--- OUTSIDE RECORDS SUMMARY | 2023-06-18 03:47 | External Medical Summary | Summary of Care ---
Author Name Unknown Organization [place] [address] Phone Care Team Providers Care Porcelain Enameler Name Role Phone Marcela Pinto MD Primary Care Provider [phone] Reason for Visit * Reason Comments ADVICE Encounter Details Date Type Department Care Team Description 05/04/2018 Telephone Gastroenterology, [facility] 132 [facility] [place] [address] Zulay Eagle, [facility] [address] [phone] ADVICE Allergies Active Allergy Reactions Severity Noted Date Comments Valsartan 07/10/2010 Enalapril 05/21/2006 Escitalopram Oxalate Nausea/vomiting 10/11/2009 Nauseated Iodinated Diagnostic Agents Nausea/vomiting 05/2010 IV Contrast Lisinopril 05/21/2006 Metoprolol Tartrate 11/18/2006 Made pulse low [place] Oil-Black Currant-Vit E 07/10/2010 Verapamil 03/21/2004 Bupropion [...] Asthma with severity to be determined,COPD, moderate ([facility] [...] of less than 7.5% ([facility]) TAKE 1 TABLET BY MOUTH IN [...] Active DilTIAZem HCl ER Beads 360 MG OG50Xobefzsjzhf:HTN, goal below 130/80 TAKE 1 CAPSULE EVERY DAY 90 Cap 1 05/01/2018 Active as of this encounter Active Problems Problem Noted Date Ischemic colitis ([facility]) 10/01/2017 Lower GI bleed 04/21/2017 Irritable bowel syndrome with constipati on 04/21/2017 Elevated plasma metanephrines 02/20/2017 Type 2 diabetes mellitus with hemoglobin A1c goal of less than 7.5% ([facility]) 02/12/2017 Hypercalcemia 02/12/2017 Controlled substance agreement [...] AHP Diverticulitis of colon 07/25/2011 COPD, moderate ([facility]) 07/19/2011 Overview: Dr Bhatti every 6 months Allergic rhinitis 07/19/2011 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 Asthma with severity to be determined Carpal tunnel syndrome EDEMA dependent, ankles Generalized osteoarthritis ACEI/ARB contraindicated as of this encounter Resolved Problems Problem Noted Date Resolved Date DM (diabetes mellitus), type 2 ([facility]) 08/07/2015 06/25/2017 Nausea 09/05/2012 06/25/2017 Overview: ICD-10 update of inactive term HTN, GOAL BELOW 140/80 06/01/2012 6 Overview: Per HTN Protocol #27. Hypoxemia 10/08/2011 10/30/2015 Genetic Sleep Disorder Research Other*[id number] 07/25/2011 05/15/2016 Obesity, morbid (more than 1 00 lbs over ideal weight or BMI > 40) ([facility]) 01/09/2010 08/19/2017 Overview: Per Obesity Taxonomy [...] Visit Internal Medicine Marcela Pinto MD 200 [place] [address] [phone] 05/29/2018 Imaging Radiology 06/10/2018 Nutrition Services Gastroenterology Nita Enriquez, RDN [address] [place] [address] 07/23/2018 Office Visit Internal Medicine Marcela Pinto MD 200 [facility] [address] [phone] 07/30/2018 Office Visit Podiatry Chantel Moore, LEONARD [address] [facility] [place] [id number] Health Maintenance Due Date Last Done Comments [...]
--- OUTSIDE RECORDS SUMMARY | 2023-06-18 03:47 | External Medical Summary | Summary of Care ---
Author Name Unknown Organization [place] [address] Phone Care Team Providers Care Manufacturing Plant Manager Name Role Phone Marcela Pinto MD Primary Care Provider [phone] Reason for Visit * Reason Comments MEDICATION QUESTION Encounter Details Date Type Department Care Team Description 04/16/2018 Telephone Gastroenterology, [facility] 132 [facility] [place] [address] Charles Coello MD 132 [place] [address] MEDICATION QUESTION Allergies Active Allergy Reactions Severity Noted Date Comments Valsartan 07/10/2010 Enalapril 05/21/2006 Escitalopram Oxalate Nausea/vomiting 10/11/2009 Nauseated Iodinated Diagnostic Agents Nausea/vomiting 05/2010 IV Contrast Lisinopril 05/21/2006 Metoprolol Tartrate 11/18/2006 Made pulse low [place] Oil-Black Currant-Vit E 07/10/2010 Verapamil 03/21/2004 Bupropion [...] EVERY DAY 90 Cap 1 11/03/2017 Active DilTIAZem HCl ER Coated Beads 360 MG VY75Lobczcumexg:HTN, goal below 130/80 TAKE 1 CAPSULE EVERY DAY 90 Cap 1 11/07/2017 Active omeprazole (PRILOSEC) 20 MG CPDRIndications:Isch emic [...] at bedtime. 30 Tab 2 04/13/2018 Active as of this encounter Active Problems Problem Noted Date Ischemic colitis ([facility]) 10/01/2017 [...] Hypoxemia 10/08/2011 10/30/2015 Genetic Sleep Disorder Research Other*[id number] 07/25/2011 05/15/2016 Obesity, morbid (more than 1 [...] Telephone Encounter - Randa Oswald RN - 04/20/2018 10:06 AM EDT This has been fully explained to the patient, who indicates understanding. * Telephone Encounter - hCarles Coello MD - 04/16/2018 1:58 PM EDT That is fine. Charles Coello MD * Telephone Encounter - Bernadine Nunez OSA - 04/16/2018 9:30 AM EDT Pt calling in regards to her Omeprazole and Ranitidine prescriptions. She stated she was told by the pharmacy to ask if she is to be taking both medications. Please advise pt at [phone]. Thank you, Bernadine Nunez Filling Room Operator Pharmacy Refill Call Center 04/16/2018, 9:30 AM in this encounter Plan of Treatment Upcoming Encounters Date Type Specialty Care Team Description 04/28/2018 Office Visit Podiatry Chantel Moore, JOHNM [address] [place] [address] 05/01/2018 Procedure Only Endoscopy Zulay Eagle, DO 132 [facility] [place] [address] [phone] 05/29/2018 Imaging Radiology 06/10/2018 Nutrition Services Gastroenterology Nita Enriquez, WIONAN [address] [place] [address] 07/23/2018 Office Visit Internal Medicine Marcela Pinto MD 200 [facility] [place] [address] [phone] Health Maintenance Due Date Last Done Comments [...]
--- OUTSIDE RECORDS SUMMARY | 2023-06-18 03:47 | External Medical Summary | Summary of Care ---
Author Name Unknown Organization [place] [address] Phone Care Team Providers Care Service Operator Name Role Phone Marcela Pinto MD Primary Care Provider [phone] Reason for Visit * Reason Comments eRx-Medication Refill Encounter Details Date Type Department Care Team Description 05/11/2018 Refill General Internal Medicine [facility] 200 [place] [address] Marcela Pinto MD [address] [place] [address] [phone] Lyme disease Allergies Active Allergy Reactions Severity Noted Date [...] than 7.5% ([facility]) TAKE 1 TABLET BY MOUTH IN THE [...] Active DilTIAZem HCl ER Beads 360 MG EP35Iqwqortkpgz:HTN, goal below 130/80 TAKE 1 CAPSULE EVERY DAY 90 Cap 1 05/01/2018 Active doxycycline hyclate 100 MG CapsuleIndications:L yme disease TAKE 1 CAPSULE BY MOUTH 2 TIMES A DAY FOR 7 DAYS. TAKE FOR 7 DAYS 14 Cap 0 05/12/2018 Active as of this encounter Active Problems Problem Noted Date Ischemic colitis ([facility]) 10/01/2017 Lower GI bleed 04/21/2017 Irritable bowel syndrome with constipati on 04/21/2017 Elevated plasma metanephrines 02/20/2017 Type 2 diabetes mellitus with hemoglobin A1c goal of less than 7.5% ([facility]) 02/12/2017 Hypercalcemia 02/12/2017 Controlled substance [...] of colon 07/25/2011 COPD, moderate ([facility]) 07/19/2011 Overview: Dr Bhatti every 6 months Allergic rhinitis 07/19/2011 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 Asthma with severity to be determined Carpal tunnel syndrome EDEMA dependent, ankles Generalized osteoarthritis ACEI/ARB contraindicated as of this encounter Resolved Problems Problem Noted Date Resolved Date DM (diabetes mellitus), type 2 ([facility]) 08/07/2015 06/25/2017 Nausea 09/05/2012 06/25/2017 Overview: ICD-10 update of inactive term HTN, GOAL BELOW 140/80 06/01/2012 6 Overview: Per HTN Protocol #27. Hypoxemia 10/08/2011 10/30/2015 Genetic Sleep Disorder Research Other*[id number] 07/25/2011 05/15/2016 Obesity, morbid (more than 1 00 lbs over ideal weight or BMI > 40) ([facility]) 01/09/2010 08/19/2017 Overview: Per Obesity [...] than 7.0% ([facility]) 08/10/2009 12/03/2012 Overview: Per Diabetes Taxonomy. ICD-10 update of inactive term Type 2 diabetes mellitus wit h hemoglobin A1c goal of less than 7.0% ([facility]) 08/10/2009 Overview: Per Diabetes Taxonomy. [...] Telephone Encounter - Marcela Pinto MD - 05/12/2018 1:38 PM EDT Signed Prescriptions: Disp Refills doxycycline hyclate 100 MG Capsule 14 Cap 0 Sig: TAKE 1 CAPSULE BY MOUTH 2 TIMES A DAY FOR 7 DAYS. TAKE FOR 7 DAYS Authorizing Provider: MARCELA PINTO * Telephone Encounter - Nita Banegas LPN - 05/12/2018 12:55 PM EDT Pending Prescriptions: Disp Refills doxycycline hyclate 100 MG Capsule [Pharm*14 Cap 0 Sig: TAKE 1 CAPSULE BY MOUTH 2 TIMES A DAY FOR 7 DAYS. TAKE FOR 7 DAYS * Telephone Encounter - Nita Banegas LPN - 05/12/2018 12:53 PM EDT Pending Prescriptions: Disp Refills doxycycline hyclate 100 MG Capsule [Pharm*14 Cap 0 Sig: TAKE 1 CAPSULE BY MOUTH 2 TIMES A DAY FOR 7 DAYS. TAKE FOR 7 DAYS Last Office Visit: 03/31/2018 Next Office Visit: 05/15/2018 Scheduled Provider(s): Marcela Pinto MD Ok to refill? Med was D/c'd. in this encounter Plan of Treatment Upcoming Encounters Date Type Specialty Care Team Description 05/15/2018 Office Visit Internal Medicine Marcela Pinto MD [address] [place] [address] [phone] 05/29/2018 Imaging Radiology 06/10/2018 Nutrition Services Gastroenterology Nita Enriquez, AKIKO [address] [facility] [address] [place] [address] [phone] 07/23/2018 Office Visit Internal Medicine Marcela Pinto MD [address] [place] [address] [phone] 07/30/2018 Office Visit Podiatry Chantel Moore, LEONARD [...] fileas of this encounter Visit Diagnoses Diagnosis Lyme disease in this encounter
--- OUTSIDE RECORDS SUMMARY | 2023-06-18 03:47 | External Medical Summary | Summary of Care ---
Author Name Unknown Organization [place] [address] Phone Care Team Providers Care Fish Icer Name Role Phone Marcela Pinto MD Primary Care Provider [phone] Reason for Visit * Reason Comments Update finesse's case management Encounter Details Date Type Department Care Team Description 05/01/2018 Tax Services Manager Telephone Ancillary [facility] 200 [place] [address] Sigrid Montano RN 200 [place] [address] [phone] Update (finesse's); case management Allergies Active Allergy Reactions Severity Noted Date Comments Valsartan 07/10/2010 Enalapril 05/21/2006 Escitalopram Oxalate Nausea/vomiting 10/11/2009 Nauseated Iodinated Diagnostic Agents Nausea/vomiting 05/2010 IV Contrast Lisinopril 05/21/2006 Metoprolol Tartrate 11/18/2006 Made pulse low [place] Oil-Black Currant-Vit E 07/10/2010 Verapamil 03/21/2004 Bupropion [...] - [facility]) USE TO TEST BLOOD SUGAR 4 [...] Active DilTIAZem HCl ER Beads 360 MG IF90Fssiegzgzlz:HTN, goal below 130/80 TAKE 1 CAPSULE EVERY DAY 90 Cap 1 05/01/2018 Active as of this encounter Active Problems Problem Noted Date Ischemic colitis ([facility]) 10/01/2017 Lower GI bleed 04/21/2017 Irritable bowel syndrome with constipati on 04/21/2017 Elevated plasma metanephrines 02/20/2017 Type 2 diabetes mellitus with hemoglobin A1c goal of less than 7.5% ([facility]) 02/12/2017 Hypercalcemia 02/12/2017 Controlled substance agreement signed [...] Diverticulitis of colon 07/25/2011 COPD, moderate ([facility]) 07/19/2011 Overview: Dr Bhatti every 6 months Allergic rhinitis 07/19/2011 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 Asthma with severity to be determined Carpal tunnel syndrome EDEMA dependent, ankles Generalized osteoarthritis ACEI/ARB contraindicated as of this encounter Resolved Problems Problem Noted Date Resolved Date DM (diabetes mellitus), type 2 ([facility]) 08/07/2015 06/25/2017 Nausea 09/05/2012 06/25/2017 Overview: ICD-10 update of inactive term HTN, GOAL BELOW 140/80 06/01/2012 6 Overview: Per HTN Protocol #27. Hypoxemia 10/08/2011 10/30/2015 Genetic Sleep Disorder Research Other*[id number] 07/25/2011 05/15/2016 Obesity, morbid (more than 1 00 lbs over ideal weight or BMI > 40) ([facility]) 01/09/2010 08/19/2017 Overview: Per Obesity Taxonomy HTN, [...] encounter Miscellaneous Notes * Telephone Encounter - Dusty, Sigrid Steven RN - 05/01/2018 3:25 PM EDT Return call from patient Reports she took doxy for 6 weeks, finished in March sometime Still having stomach queasiness and her hands and knees hurt Blood sugars remain good, this morning 122 Denies any other physical complaints Had endoscopy with Dr. Eagle today at [facility] He told her to follow up with PCP after results come in end of next week (I had scheduling call herto arrange) She denies any other needs or concerns at this time FYI to PCP and new case hardener in this encounter Plan of Treatment Upcoming Encounters Date Type Specialty Care Team Description 05/15/2018 Office Visit Internal Medicine Marcela Pinto MD 200 [facility] [place] [address] [phone] 05/29/2018 Imaging Radiology 06/10/2018 Nutrition Services Gastroenterology Nita Enriquez, IWONAN [address] [place] [address] 07/23/2018 Office Visit Internal Medicine Marcela Pinto MD 200 [facility] [place] [address] [phone] 07/30/2018 Office Visit Podiatry Chantel Moore DPM [...]
--- OUTSIDE RECORDS SUMMARY | 2023-06-18 03:47 | External Medical Summary | Summary of Care ---
Author Name Unknown Organization [place] [address] Phone Care Team Providers Care Residential Installer Name Role Phone Marcela Pinto MD Primary Care Provider [phone] Encounter Details Date Type Department Care Team Description 05/01/2018 Result Scan Gastroenterology, [facility] 132 [facility] [place] [address] Zulay Eagle, 132 [facility] [place] [address] [phone] <No scans attached> Allergies Active Allergy Reactions [...] Active DilTIAZem HCl ER Beads 360 MG JC48Wfenafsamkn:HTN, goal below 130/80 TAKE 1 CAPSULE EVERY DAY 90 Cap 1 05/01/2018 Active as of this encounter Active Problems Problem Noted Date Ischemic colitis ([facility]) 10/01/2017 Lower GI bleed 04/21/2017 Irritable bowel syndrome with constipati on 04/21/2017 Elevated plasma metanephrines 02/20/2017 Type 2 diabetes mellitus with hemoglobin A1c goal of less than 7.5% ([facility]) 02/12/2017 Hypercalcemia 02/12/2017 Controlled substance [...] of colon 07/25/2011 COPD, moderate ([facility]) 07/19/2011 Overview: Dr Bhatti every 6 months Allergic rhinitis 07/19/2011 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 Asthma with severity to be determined Carpal tunnel syndrome EDEMA dependent, ankles Generalized osteoarthritis ACEI/ARB contraindicated as of this encounter Resolved Problems Problem Noted Date Resolved Date DM (diabetes mellitus), type 2 ([facility]) 08/07/2015 06/25/2017 Nausea 09/05/2012 06/25/2017 Overview: ICD-10 update of inactive term HTN, GOAL BELOW 140/80 06/01/2012 6 Overview: Per HTN Protocol #27. Hypoxemia 10/08/2011 10/30/2015 Genetic Sleep Disorder Research Other*[id number] 07/25/2011 05/15/2016 Obesity, morbid (more than 1 00 lbs over ideal weight or BMI > 40) ([facility]) 01/09/2010 08/19/2017 Overview: Per Obesity [...] Visit Internal Medicine Marcela Pinto MD 200 [place] [address] [phone] 05/29/2018 Imaging Radiology 06/10/2018 Nutrition Services Gastroenterology Nita Enriquez, RDN [address] [place] [id number] 07/23/2018 Office Visit Internal Medicine Marcela Pinto MD [address] [place] [address] [phone] 07/30/2018 Office Visit Podiatry Chantel Moore DPM [address] [place] [address] [phone] Health Maintenance Due Date Last Done Comments [...] on fileas of this encounter Results * PATHOLOGY SCANNED RESULT (05/01/2018) in this encounter
--- OUTSIDE RECORDS SUMMARY | 2023-06-18 03:47 | External Medical Summary | Summary of Care ---
Author Name Unknown Organization [place] [address] Phone Care Team Providers Care Websphere Architect Name Role Phone Marcela Pinto MD Primary Care Provider [phone] Reason for Visit * Reason Comments LEFT MESSAGE how feeling? (re: ly me's) case management Encounter Details Date Type Department Care Team Description 04/27/2018 Lamp Decorator Telephone Ancillary [facility] 200 [place] [address] Sigrid Montano RN 200 [place] [address] [phone] LEFT MESSAGE (how feeling? (re: lyme's)); ... Allergies Active Allergy Reactions Severity Noted Date Comments Valsartan 07/10/2010 Enalapril 05/21/2006 Escitalopram Oxalate Nausea/vomiting 10/11/2009 Nauseated Iodinated Diagnostic Agents Nausea/vomiting 05/2010 IV Contrast Lisinopril 05/21/2006 Metoprolol Tartrate 11/18/2006 Made pulse low [place] Oil-Black Currant-Vit E 07/10/2010 Verapamil 03/21/2004 Bupropion [...] DilTIAZem HCl ER Coated Beads 360 MG XI87Ipigoqvfcny:HTN, goal below 130/80 TAKE 1 CAPSULE EVERY [...] Active Problems Problem Noted Date Ischemic colitis ([facility]) 10/01/2017 Lower GI bleed 04/21/2017 Irritable bowel syndrome with constipati on 04/21/2017 Elevated plasma metanephrines 02/20/2017 Type 2 diabetes mellitus with hemoglobin A1c goal of less than 7.5% ([facility]) 02/12/2017 Hypercalcemia 02/12/2017 Controlled [...] AHP Diverticulitis of colon 07/25/2011 COPD, moderate ([facility]) 07/19/2011 Overview: Dr Bhatti every 6 months Allergic rhinitis 07/19/2011 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 Asthma with severity to be determined Carpal tunnel syndrome EDEMA dependent, ankles Generalized osteoarthritis ACEI/ARB contraindicated as of this encounter Resolved Problems Problem Noted Date Resolved Date DM (diabetes mellitus), type 2 ([facility]) 08/07/2015 06/25/2017 Nausea 09/05/2012 06/25/2017 Overview: ICD-10 update of inactive term HTN, GOAL BELOW 140/80 06/01/2012 6 Overview: Per HTN Protocol #27. Hypoxemia 10/08/2011 10/30/2015 Genetic Sleep Disorder Research Other*[id number] 07/25/2011 05/15/2016 Obesity, morbid (more than 1 00 lbs over ideal weight or BMI > 40) ([facility]) 01/09/2010 08/19/2017 Overview: Per [...] Encounter - Dusty, Sigrid Steven RN - 04/27/2018 2:41 PM EDT attempted to reach patient to follow up on Lyme's no answer, left generic message to return call in this encounter Plan of Treatment Upcoming Encounters Date Type Specialty Care Team Description 04/28/2018 Office Visit Podiatry Chantel Moore, LEONARD [address] [place] [address] 05/01/2018 Procedure Only Endoscopy Zulay Eagle, DO [address] [place] [address] 05/29/2018 Imaging Radiology 06/10/2018 Nutrition Services Gastroenterology Nita Enriquez, AKIKO [address] [place] [address] 07/23/2018 Office Visit Internal Medicine Marcela Pinto MD [address] [facility] [address] [phone] Health Maintenance Due Date Last Done Comments [...]
--- OUTSIDE RECORDS SUMMARY | 2023-06-18 03:47 | External Medical Summary | Summary of Care ---
Author Name Unknown Organization [place] [address] Phone Care Team Providers Care Assurance Sourcing Manager Name Role Phone Marcela Pinto MD Primary Care Provider [phone] Reason for Visit * Reason Comments NEW PATIENT * Evaluate & Treat - Unlimited Visits (Within 10 days (routine)) Status Reason Specialty Diagnoses / Procedures Referred By Contact Referred To Contact Pending Review Specialty Services Required Podiatry Diagnoses Type 2 diabetes mellitus with hemoglobin A1c goal of less than 7.5% ([facility]) Marcela Pinto MD [address] [place] [address] Encounter Details Date Type Department Care Team Description 04/28/2018 Office Visit Podiatry [facility] [address] [place] [address] Chantel Moore DPM [address] [place] [address] Type 2 diabetes mellitus with hemoglobin A1c goal of less than 7.5% ([facility])*;Onychomycosis Allergies Active Allergy Reactions Severity Noted Date Comments Valsartan 07/10/2010 Enalapril 05/21/2006 Escitalopram Oxalate Nausea/vomiting 10/11/2009 Nauseated Iodinated Diagnostic Agents Nausea/vomiting 05/2010 IV Contrast Lisinopril 05/21/2006 Metoprolol Tartrate 11/18/2006 Made pulse low [place] Oil-Black Currant-Vit E 07/10/2010 Verapamil 03/21/2004 Bupropion [...] [facility]) USE TO TEST BLOOD SUGAR 4 [...] DilTIAZem HCl ER Coated Beads 360 MG [id number]:HTN, goal below 130/80 TAKE 1 CAPSULE EVERY [...] Active Problems Problem Noted Date Ischemic colitis ([facility]) 10/01/2017 Lower GI bleed 04/21/2017 Irritable bowel syndrome with constipati on 04/21/2017 Elevated plasma metanephrines 02/20/2017 Type 2 diabetes mellitus with hemoglobin A1c goal of less than 7.5% ([facility]) 02/12/2017 Hypercalcemia 02/12/2017 Controlled substance agreement [...] Diverticulitis of colon 07/25/2011 COPD, moderate ([facility]) 07/19/2011 Overview: Dr Bhatti every 6 months Allergic rhinitis 07/19/2011 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 Asthma with severity to be determined Carpal tunnel syndrome EDEMA dependent, ankles Generalized osteoarthritis ACEI/ARB contraindicated as of this encounter Resolved Problems Problem Noted Date Resolved Date DM (diabetes mellitus), type 2 ([facility]) 08/07/2015 06/25/2017 Nausea 09/05/2012 06/25/2017 Overview: ICD-10 update of inactive term HTN, GOAL BELOW 140/80 06/01/2012 6 Overview: Per HTN Protocol #27. Hypoxemia 10/08/2011 10/30/2015 Genetic Sleep Disorder Research Other*[id number] 07/25/2011 05/15/2016 Obesity, morbid (more than 1 00 lbs over ideal weight or BMI > 40) ([facility]) 01/09/2010 08/19/2017 Overview: Per Obesity Taxonomy [...] less than 7.0% ([facility]) 08/10/2009 12/03/2012 Overview: Per Diabetes Taxonomy. ICD-10 update of inactive term Type 2 diabetes mellitus wit h hemoglobin A1c goal of less than 7.0% ([facility]) 08/10/2009 Overview: Per Diabetes Taxonomy. ICD-10 [...] Vital Sign Reading Time Taken Blood Pressure - - Pulse - - Temperature - - Respiratory Rate - - Oxygen Saturation - - Inhaled Oxygen Concentration - - Weight 108.1 kg (238 lb 6.4 oz) 018 12:55 PM EDT Height 165.1 cm (5' 5") 04/28/2018 12:5 5 PM EDT Body Mass Index 39.67 04/28/2018 12:55 PM EDT in this encounter Progress Notes * Chantel Moore DPM - 04/28/2018 1:09 PM EDT Formatting of this note may be different from the original. Podiatry New Patient Note [facility] Name: Nina Harrington : 1940 Date: 04/28/2018 CHIEF COMPLAINT: Diabetic Nail Care HISTORY OF PRESENT ILLNESS: This patient is a 77 year old female who presents today for diabetic nail care. Pt states she was a previous pt of Dr. Hansen and was seeing her every 3 months. She is a diabetic. She denies any [...] DIAGNOSTIC (RECTUM) 05/29/2016 poor prep, diverticulosis/inpt [facility] COLONOSCOPY, DIAGNOSTIC (RECTUM) 06/05/2017 diverticulosis, repeat 3 yrs/[facility] COLONOSCOPY, DIAGNOSTIC (RECTUM) 02/28/2018 adenomatous polyps, diverticulosis, repeat 3 yrs / [facility] COLONOSCOPY, W/BIOPSY 03/20/12 hyperplastic polyps rpt 3 years. EGD, FLEXIBLE, DIAGNOSTIC 04/29/2014 normal/inpt [facility] EGD, FLEXIBLE, DIAGNOSTIC 05/29/2016 fundic submucosal mass/inpt [facility] EGD, FLEXIBLE,W/ENDOSCOPIC US 11/08/2016 inflammatory changes, stomach lesion, repeat EUS 1.5 yrs/[facility] INCISIONAL HERNIA REPAIR, LAP, REDUCIBLE 09/29/12 Repair of incarcerated supraumbilical (incisional) hernia with Atrium mesh 09/29/12 LIGATE/CUT OVIDUCT(S) REMOVAL OF TONSILS, AGE 12+ age 11 REMOVE GALLBLADDER 1960 SIGMOIDOSCOPY, DIAGNOSTIC 04/29/2014 stool in rectum/inpt [facility] SMALL BOWEL ENDOSCOPY, REMOVE FOREIGN BODY mesh from prior hernia surgery, wrapped around small bowel. 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 30 Tab 2 HYDROcodone-acetaminophen 5-325 mg per tab 5-325 MG per tablet Take 1 Tab by mouth every 6 hours asneeded for Pain, Breakthrough. 120 Tab 0 glimepiride [...] FOR 10 DAYS NEEDED FOR CONSTIPATION 0 omeprazole (PRILOSEC) 20 MG CPDR TAKE 1 CAPSULE TWICE DAILY 180 Cap 1 DilTIAZem HCl ER Coated Beads 360 MG CP24 TAKE 1 CAPSULE EVERY DAY 90 Cap 1 Terazosin HCl 2 MG Capsule [...] Contrast Lisinopril Metoprolol Tartrate Made pulse low [place] Oil-Black Currant-Vit E Verapamil Wellbutrin [Bupropion Hcl] [...] and No psychosis FOCUSED PODIATRIC EXAM: Vitals: Filed Vitals: 04/28/18 1255 Weight: 108.1 kg (238 lb 6.4 oz) Height: 1.651 m (5' 5") General: Patient is awake alert oriented to [...] any problems or questions. Chantel Moore DPM Referring: Marcela Pinto MD in this encounter Nursing Notes * Yara Kong, TECH - 04/28/2018 12:52 PM EDT Pt present for diabetic foot check and nail care Pt reports last blood sugar to be 141 this morning in this encounter Plan of Treatment Upcoming Encounters Date Type Specialty Care Team Description 05/01/2018 Procedure Only Endoscopy Zulay Eagle, DO [address] [facility] [address] [phone] 05/29/2018 Imaging Radiology 06/10/2018 Nutrition Services Gastroenterology Nita Enriquez RDN [address] [facility] [place] [address] 07/23/2018 Office Visit Internal Medicine Marcela Pinto MD [address] [place] [address] [phone] 07/30/2018 Office Visit Podiatry Chantel Moore DPM [address] [facility] [place] [address] Health Maintenance Due Date Last [...] of less than 7.5% (HCC) - Primary Onychomycosis Dermatophytosis of nail in this encounter
--- OUTSIDE RECORDS SUMMARY | 2023-06-18 03:47 | External Medical Summary | Summary of Care ---
Author Name Unknown Organization [place] [address] Phone Care Team Providers Care Logistics Lead Name Role Phone Marcela Pinto MD Primary Care Provider [phone] Reason for Visit * Reason Comments RECHECK f/u after colonoscop y * Evaluate & Treat - Unlimited Visits (Within 10 days (routine)) Status Reason Specialty Diagnoses / Procedures Referred By Contact Referred To Contact Pending Review Specialty Services Required Gastroenterology Diagnoses H/O colonoscopy with polypectomy Marcela Pinto MD [address] [place] [address] Encounter Details Date Type Department Care Team Description 04/13/2018 Office Visit Gastroenterology, [facility] [address] [place] [address] Charles oCello MD [address] [place] [address] [phone] Nausea* Allergies Active Allergy Reactions Severity Noted Date Comments Valsartan 07/10/2010 Enalapril 05/21/2006 Escitalopram Oxalate Nausea/vomiting 10/11/2009 Nauseated Iodinated Diagnostic Agents Nausea/vomiting 05/2010 IV Contrast Lisinopril 05/21/2006 Metoprolol Tartrate 11/18/2006 Made pulse low [place] Oil-Black Currant-Vit E 07/10/2010 Verapamil 03/21/2004 [...] DilTIAZem HCl ER Coated Beads 360 MG [id number]:HTN , goal below 130/80 TAKE 1 CAPSULE [...] at bedtime. 30 Tab 2 8 Active IRON 325 (65 FE) MG PO TABS 1 daily 04/13/20 18 Discontinued as of this encounter Active Problems Problem Noted Date Ischemic colitis ([facility]) 10/01/2017 Lower GI bleed 04/21/2017 Irritable bowel syndrome with constipati on 04/21/2017 Elevated plasma metanephrines 02/20/2017 Type 2 diabetes mellitus with hemoglobin A1c goal of less than 7.5% ([facility]) 02/12/2017 Hypercalcemia 02/12/2017 Controlled substance agreement [...] of colon 07/25/2011 COPD, moderate ([facility]) 07/19/2011 Overview: Dr Bhatti every 6 months Allergic rhinitis 07/19/2011 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 Asthma with severity to be determined Carpal tunnel syndrome EDEMA dependent, ankles Generalized osteoarthritis ACEI/ARB contraindicated as of this encounter Resolved Problems Problem Noted Date Resolved Date DM (diabetes mellitus), type 2 ([facility]) 08/07/2015 06/25/2017 Nausea 09/05/2012 06/25/2017 Overview: ICD-10 update of inactive term HTN, GOAL BELOW 140/80 06/01/2012 6 Overview: Per HTN Protocol #27. Hypoxemia 10/08/2011 10/30/2015 Genetic Sleep Disorder Research Other*[id number] 07/25/2011 05/15/2016 Obesity, morbid (more than 1 [...] less than 7.0% ([facility]) 08/10/2009 12/03/2012 Overview: Per Diabetes Taxonomy. ICD-10 update of inactive term Type 2 diabetes mellitus wit h hemoglobin A1c goal of less than 7.0% ([facility]) 08/10/2009 Overview: Per Diabetes Taxonomy. ICD-10 [...] Vital Sign Reading Time Taken Blood Pressure 128/62 04/13/2018 1:39 PM EDT Pulse - - Temperature 36.6 C (97.9 F) 04/13/2018 1 :39 PM EDT Respiratory Rate - - Oxygen Saturation - - Inhaled Oxygen Concentration - - Weight 105.7 kg (233 lb) 04/13/2018 1:3 9 PM EDT Height - - Body Mass Index 38.77 04/13/2018 1:39 PM EDT in this encounter Progress Notes * Charles Coello MD - 04/23/2018 4:16 PM EDT Formatting of this note may be different from the original. Marcela Pinto MD Ref: MARCELA PINTO[[id number]] [address] [place] [phone] (office) [phone] (fax) Dear Marcela Pinto MD History of Present Illness: I had the pleasure of seeing Nina Champagne Amayapreeti who normally follows with Dr. Eagel after recently being admitted for rectal bleeding. She is a 77 yo with a hx of GERD, HTN, asthma, COPD/oxygen dependent, DM-2, HTN, Sleep apnea who presented to the ED at [facility] for rectal bleeding on . She underwent colonoscopy with Dr. Ballard, the was significant for only 2 small diminutive polyps as well as heavy burden of diverticuli. 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 She is not having any abdominal pain nausea vomiting or bleeding has subsided. suggested possibly doing a barium enema for the possible fistula. She is still having occasional nausea is controlled with acid suppression as well as antiemetics. Dr. Eagle suggested repeat EUS in 1 year and is due 06-30-17 Patient presents for follow-up of abdominal discomfort and a history of postprandial nausea. Duringher last evaluation 3 months ago we transitioned the patient to a Low Fodmap diet. She reports thatshe is feeling much improved and that her symptoms have almost resolved completely. [id number] The patient presents today for follow-up with regard to postprandial discomfort and nausea. She notes that the symptoms will sometimes awaken her from sleep at night as well. She typically has a bloating like sensation. She did have a recent upper endoscopy notable for mild gastritis and a submucosal gastric mass for which we are doing a follow up study in about 1 year. She did have a prior gastric emptying study about 2 years ago which was consistent with mild gastroparesis. Additional symptoms include diffuse muscle aching which she attributes to use of her statin medication. 1216-16 Patient presents for follow-up evaluation of epigastric discomfort. Over the summer she did have a severe diverticular hemorrhage which resulted in an upper endoscopy and colonoscopy. The colonoscopywas notable for numerous diverticuli but no evidence of active bleeding. An upper endoscopy did reveal a submucosal gastric mass. She was to have an endoscopic ultrasound however this is not been completed yet. The discomfort is mid epigastric associated with some nausea but no vomiting. The patient did have a prior cholecystectomy for gallstones many years ago. 3016 The patient presents for evaluation of abdominal discomfort. Her pain localizes to her left hand side and waxes and wanes throughout the day. She was given a course of antibiotics for possible diverticulitis without improvement of her symptoms. She notes that her symptoms are predominant constipation we having only small irregular bowel movements. She had been on MiraLax in the past but is presently only using the medication intermittently. 11-11-14 Patient follows today for history of chronic constipation. She does well if she remains on MiraLax and Colace. Patient was admitted several [...] use these many times during the week. February 2014 Nina Harrington is a 73 year old female who presents for evaluation of abdominal discomfort. She reports having symptoms of left-sided abdominal pain which improved after she started a bowel regimen several weeks ago. This was associated with some cramping and nausea. The patient was given an empiriccourse of antibiotics for suspected diverticulitis as well. She denies having fevers chills sweats.She denies having nausea vomiting or difficulty swallowing. Her last colonoscopy was performed in 2011 and notable for several small polyps. She is due for follow up examination in 1.5 years. She notes having some left-sided discomfort which comes and goes but is markedly improved since starting a bowel regimen several weeks ago. 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 COPD, moderate (HCC) J44.9 Allergic rhinitis J30.9 Diverticulitis of colon K57.32 Nocturnal hypoxia G47.34 Sleep apnea, obstructive G47.33 Incisional hernia K43.2 ACEI/ARB contraindicated [id number] HTN, goal below 140/90 I10 Hyperlipidemia with [...] UNITS PO TABS one tablet daily Past Medical History: Diagnosis Date ACEI/ARB contraindicated Asthma Carpal tunnel syndrome DM type 2, goal: symptom mgmt (HCC) Generalized osteoarthritis HTN, goal below 140/90 Mixed dyslipidemia Past Surgical History: Procedure Laterality Date APPENDECTOMY W/OTHER PROCEDURE 1960 when removed gall bladder COLONOSCOPY, DIAGNOSTIC (RECTUM) 05/29/2016 poor prep, diverticulosis/inpt [facility] COLONOSCOPY, DIAGNOSTIC (RECTUM) 06/05/2017 diverticulosis, repeat 3 yrs/[facility] COLONOSCOPY, DIAGNOSTIC (RECTUM) 02/28/2018 adenomatous polyps, diverticulosis, repeat 3 yrs / [facility] COLONOSCOPY, W/BIOPSY 03/20/12 hyperplastic polyps rpt 3 years. EGD, FLEXIBLE, DIAGNOSTIC 04/29/2014 normal/inpt [facility] EGD, FLEXIBLE, DIAGNOSTIC 05/29/2016 [facility] US 11/08/2016 inflammatory changes, stomach lesion, repeat EUS 1.5 yrs/[facility] INCISIONAL HERNIA REPAIR, LAP, REDUCIBLE 09/29/12 Repair of incarcerated supraumbilical (incisional) hernia with Atrium mesh 09/29/12 LIGATE/CUT OVIDUCT(S) REMOVAL OF TONSILS, AGE 12+ age 11 REMOVE GALLBLADDER 1960 SIGMOIDOSCOPY, DIAGNOSTIC 04/29/2014 stool in rectum/inpt [facility] SMALL BOWEL ENDOSCOPY, REMOVE FOREIGN BODY mesh from prior hernia surgery, wrapped around small bowel. small bowel surgery 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 Narrative Family History Problem Relation Age of Onset Cancer Mother breast Diabetes Aunt (Unspecified) JORDAN [OTHER] Son not diagnosed Asthma Daughter Lung Disorder Grandfather (Paternal) ?COPD vs asthma Review of patient's allergies indicates: Allergen Reactions Diovan [Valsartan] Enalapril Escitalopram Oxalate Nausea/vomiting Nauseated Iodinated Diagnostic Agents Nausea/vomiting IV Contrast Lisinopril Metoprolol Tartrate Made pulse low [place] Oil-Black Currant-Vit E Verapamil Wellbutrin [Bupropion Hcl] Makes pt sick in the stomach Review of Systems: Constitutional ROS: No change in weight, No weakness, No fatigue and No fevers, sweats, or chills Eye ROS: No recent significant change in vision, No eye pain, redness, discharge, No diplopia, No h/o cataracts and No h/o glaucoma Pulmonary ROS: No cough, sputum, or hemoptysis, No wheezing, No shortness of breath and No recent change in breathing Cardiovascular ROS: No chest pain, No shortness of breath, No dyspnea on exertion, No orthopnea, Noparoxysmal nocturnal dyspnea, No edema, No palpitations and No syncope Gastrointestinal ROS: As per the HPI Musculoskeletal/Extremities ROS: No pain, redness or swelling on the joints Hematologic/Lymphatic ROS: No coagulation disorder, No anemia, No abnormal bleeding, No chills, No bruising, No HIV risk factors, No night sweats, No swollen nodes, No weight loss and No history of transfusion Skin/Integumentary ROS: No edema, No rash and No itching Neurologic ROS: Normal balance, No headaches, No seizures and No weakness Psychiatric ROS: No depression, No anxiety and No psychosis All other systems reviewed and negative OBJECTIVE: Physical Exam: BP 128/62 | Temp 97.9 | Wt 233 lbs (105.688kg) | BMI 38.77 kg/m | BSA 2.2 m General: alert, healthy, no distress Head: Normocephalic Eye Exam: PERRLA, EOMI, Conjunctiva are pink and non-injected, sclera clear Ears: External ears normal Heart: regular rate & rhythm, no murmurs and no gallops Lungs: clear to auscultation Abdomen: abdomen soft, non-tender, normal bowel sounds and no masses or organomegaly Extremities: no edema, no clubbing, no cyanosis Neuro Exam: alert & oriented x 3 with fluent speech, no focal motor/sensory deficits Impression: 77 year old female presenting for follow-up from hospitalization with painless rectal bleeding as well as chronic nausea. 1. 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 Inpatient team recommended barium enema therefore will order. 2. Nausea, gastric subepithelial lesion-EUS with Dr. Eagle as previously discussed. I sincerely thank you for the referral and allowing me to be involved with the gastrointestinal health of your patient. Please do not hesitate to contact me with any questions, concerns, errors, or omissions. Sincerely, Charles Coello MD Division of Gastroenterology [facility] in this encounter Nursing Notes * Ashley Prescott, RN - 04/13/2018 1:36 PM EDT Formatting of this note may be different from the original. Chief Complaint Patient presents with RECHECK f/u after colonoscopy Patient reports having been treated with 3 weeks of abx recently for lyme disease. Also Has hx of diverticulitis hernia repair, had difficulty with mesh following hernia repair surgery. Has c/o RUQ pain currently, colonoscopy was done for rectal bleeding, this has subsided since the colonoscopy. Bowels are moving daily, uses senna and miralax. zofran is helpful for nausea that is present since taking treatment for lyme. in this encounter Plan of Treatment Upcoming Encounters Date Type Specialty Care Team Description 04/28/2018 Office Visit Podiatry Chantel Moore DPM [address] [place] [id number] 05/01/2018 Procedure Only Endoscopy Zulay Eagle, [address] [place], [place] [id number] 05/29/2018 Imaging Radiology 06/10/2018 Nutrition Services Gastroenterology Nita Enriquez RDN [address] [place] [address] 07/23/2018 Office Visit Internal Medicine [facility]a Pinto MD [address] [facility] [address] [phone] Scheduled Tests Name Priority Associated Diagnoses Order S chedule US ENDOSCOPIC Routine Nausea Ordered: 04/13/2018 FLUORO BARIUM ENEMA Routine Nausea Ordered: 04/23/2018 Health Maintenance Due Date Last Done Comments [...] fileas of this encounter Visit Diagnoses Diagnosis Nausea - Primary Nausea alone in this encounter"
--- OUTSIDE RECORDS SUMMARY | 2023-06-18 03:47 | External Medical Summary | Summary of Care ---
Author Name Unknown Organization [place] [address] Phone Care Team Providers Care Toppiece Cutter Name Role Phone Marcela Pinto MD Primary Care Provider [phone] Reason for Visit * Reason Comments LEFT MESSAGE how doing -- Lyme's follow up case management Encounter Details Date Type Department Care Team Description 04/29/2018 Physical Laboratory Assistant Telephone Ancillary [facility] [address] [place] [address] Sigrid Montano RN [address] [place] [address] [phone] LEFT MESSAGE (how doing -- Lyme's follow u... Allergies Active Allergy Reactions Severity Noted Date Comments Valsartan 07/10/2010 Enalapril 05/21/2006 Escitalopram Oxalate Nausea/vomiting 10/11/2009 Nauseated Iodinated Diagnostic Agents Nausea/vomiting 05/2010 IV Contrast Lisinopril 05/21/2006 Metoprolol Tartrate 11/18/2006 Made pulse low [place] Oil-Black Currant-Vit E 07/10/2010 Verapamil 03/21/2004 Bupropion [...] 7.0% ([facility]) USE TO TEST BLOOD SUGAR [...] DilTIAZem HCl ER Coated Beads 360 MG [id number]:HTN, goal below 130/80 TAKE 1 CAPSULE EVERY [...] Problem Noted Date Ischemic colitis ([facility]) 10/01/2017 Lower GI bleed 04/21/2017 Irritable bowel syndrome with constipati on 04/21/2017 Elevated plasma metanephrines 02/20/2017 Type 2 diabetes mellitus with hemoglobin A1c goal of less than 7.5% ([facility]) 02/12/2017 Hypercalcemia 02/12/2017 Controlled substance [...] of colon 07/25/2011 COPD, moderate ([facility]) 07/19/2011 Overview: Dr Bhatti every 6 months Allergic rhinitis 07/19/2011 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 Asthma with severity to be determined Carpal tunnel syndrome EDEMA dependent, ankles Generalized osteoarthritis ACEI/ARB contraindicated as of this encounter Resolved Problems Problem Noted Date Resolved Date DM (diabetes mellitus), type 2 ([facility]) 08/07/2015 06/25/2017 Nausea 09/05/2012 06/25/2017 Overview: ICD-10 update of inactive term HTN, GOAL BELOW 140/80 06/01/2012 6 Overview: Per HTN Protocol #27. Hypoxemia 10/08/2011 10/30/2015 Genetic Sleep Disorder Research Other*[id number] 07/25/2011 05/15/2016 Obesity, morbid (more than 1 00 lbs over ideal weight or BMI > 40) ([facility]) 01/09/2010 08/19/2017 Overview: Per Obesity [...] Encounter - Dusty, Sigrid Steven RN - 04/29/2018 4:37 PM EDT Playing phone tag with the patient attempted to reach patient to follow up [...] Internal Medicine Marcela Pinto MD [address] [place] [address] [phone] 07/30/2018 Office Visit Podiatry Chantel Moore, LEONARD [...]
--- OUTSIDE RECORDS SUMMARY | 2023-06-18 03:48 | External Medical Summary | Summary of Care ---
Author Name Unknown Organization [place] [address] Phone Care Team Providers Care County Agent Name Role Phone Marcela Pinto MD Primary Care Provider [phone] Reason for Visit * Reason Comments Weight Management Medical Management Encounter Details Date Type Department Care Team Description 04/13/2018 Nutrition Services Nutrition & Weight Management, [facility] [address] [place] [address] Nita Enriquez RDN [address] [place] [address] Type 2 diabetes mellitus with hemoglobin A1c goal of less than 7.5% ([facility])*;Obesity, Class II, BMI 35.0-39.9, with comorbidity (see actual BMI);Hyperlipidemia with target LDL less than 100;HTN, goal below 140/90 Allergies Active Allergy Reactions Severity Noted Date Comments Valsartan 07/10/2010 Enalapril 05/21/2006 Escitalopram Oxalate Nausea/vomiting 10/11/2009 Nauseated Iodinated Diagnostic Agents Nausea/vomiting 05/2010 IV Contrast Lisinopril 05/21/2006 Metoprolol Tartrate 11/18/2006 Made pulse low [place] Oil-Black Currant-Vit E 07/10/2010 Verapamil 03/21/2004 Bupropion [...] [facility]) USE TO TEST BLOOD SUGAR 4 [...] DilTIAZem HCl ER Coated Beads 360 MG [id number]:HTN , goal below 130/80 TAKE 1 CAPSULE [...] than 7.5% ([facility]) TAKE 1 TABLET BY MOUTH IN [...] Pain, Breakthrough. 120 Tab 0 8 Active IRON 325 (65 FE) MG PO TABS 1 daily 04/13/20 18 Discontinued as of this encounter Active Problems Problem Noted Date Ischemic colitis ([facility]) 10/01/2017 Lower GI bleed 04/21/2017 Irritable bowel syndrome with constipati on 04/21/2017 Elevated plasma metanephrines 02/20/2017 Type 2 diabetes mellitus with hemoglobin A1c goal of less than 7.5% ([facility]) 02/12/2017 Hypercalcemia 02/12/2017 Controlled substance agreement [...] colon 07/25/2011 COPD, moderate ([facility]) 07/19/2011 Overview: Dr Bhatti every 6 months Allergic rhinitis 07/19/2011 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 Asthma with severity to be determined Carpal tunnel syndrome EDEMA dependent, ankles Generalized osteoarthritis ACEI/ARB contraindicated as of this encounter Resolved Problems Problem Noted Date Resolved Date DM (diabetes mellitus), type [address] ([facility]) 08/07/2015 06/25/2017 Nausea 09/05/2012 06/25/2017 Overview: ICD-10 update of inactive term HTN, GOAL BELOW 140/80 06/01/2012 6 Overview: Per HTN Protocol #27. Hypoxemia 10/08/2011 10/30/2015 Genetic Sleep Disorder Research Other*[id number] 07/25/2011 05/15/2016 Obesity, morbid (more than 1 00 lbs over ideal weight or BMI > 40) ([facility]) 01/09/2010 08/19/2017 Overview: Per Obesity Taxonomy [...] than 7.0% ([facility]) 08/10/2009 12/03/2012 Overview: Per Diabetes Taxonomy. ICD-10 update of inactive term Type 2 diabetes mellitus wit h hemoglobin A1c goal of less than 7.0% ([facility]) 08/10/2009 Overview: Per Diabetes Taxonomy. ICD-10 [...] Reading Time Taken Blood Pressure 128/62 04/13/2018 12:32 PM EDT Pulse 72 04/13/2018 12:32 PM EDT Temperature - - Respiratory Rate - - Oxygen Saturation - - Inhaled Oxygen Concentration - - Weight 106.1 kg (233 lb 12.8 oz) 2017 12:32 PM EDT Height - - Body Mass Index 38.91 04/13/2018 12:32 PM EDT in this encounter Instructions * Patient Instructions - Nita Enriquez RDN - 04/13/2018 1:22 PM EDT 1) Keep Food/Exercise log Patient not to skip meals to prevent low blood sugars. Patient not to have less than 2 carbohydratefoods per meal daily or(30g carbohydrates per meal) Anything from the starch group, fruit group or milk group. 2) Continue the great job with eating fruits and vegetables daily. 3) Continue the great job with drinking water about 64 ounces a day. 4) Patient to exercise when physically able in this encounter Progress Notes * Nita Enriquez RDN - 04/13/2018 1:11 PM EDT Formatting of this note may be different from the original. GI/NUTRITION FOLLOW UP [facility] Patient was identified at visit by name and date. PATIENT: Nina Harrington DATE: 04/13/18 NUTRITION ASSESSMENT Diagnosis Code for referral for nutrition counseling: Type 2 diabetes mellitus with hemoglobin A1c goal of less than 7.5% ([facility]) [E11.9] - Primary Obesity, Class II, BMI 35.0-39.9, with comorbidity (see actual BMI) [E66.9] Hyperlipidemia with target LDL less than 100 [E78.5] HTN, goal below 140/90 [I10] SUBJECTIVE: Patient here today as a return visit for nutrition counseling. Patient just diagnosed with Lymes Disease and has been sick for the past few weeks. Patient complains of decreased intake Since then. Patient however has been trying to make healthier selections in the diet. Describes typical diet history/24 hr recall Breakfast: Bagel with spray butter or Boost Glucose Control Lunch: Tuna, rice or green beans Dinner: Bowl of Cereal Drinks: About 64 ounces a day. Patient has changed to decaf coffee since last review. Patient checks blood sugars [id number] mg/dl per patient. CURRENT WT: 233.8 lbs LAST VISIT WT 241.2 lbs 02/09/18 Highest Weight a few years ago: 295 lbs WEIGHT CHANGES: Weight decreased 7.4 lbs since last review 02/09/18 MNT: Calorie Controlled Diet, Consistent Carbohydrate Patient is interested in the following treatment options for obesity: medical management. LABS: Pertinent lab studies have been reviewed. PHYSICAL ACTIVITY: Limited due to arthritis and ashtma Patient stated going to try with a walker. DIET RECALL/FOOD LOGS INDICATE: High calorie, high fat and/or high sugar selections NUTRITION DIAGNOSIS Food and nutrition related knowledge related to calorie intake exceeding calorie expenditure as evidenced by diagnosis of obesity. NUTRITION INTERVENTION INSTRUCTED PT ON THESE NUTRITION HANDOUTS: Food Logs PATIENT GOALS: 1) Keep Food/Exercise log Patient not to skip meals to prevent low blood sugars. Patient not to have less than 2 carbohydratefoods per meal daily or(30g carbohydrates per meal) 2) Continue the great job with eating fruits and vegetables daily. 3) Continue the great job with drinking water about 64 ounces a day. 4) Patient to exercise when physically able EXPECTED OUTCOMES: Demonstrated interest in learning. Expect compliance with diet recommendations. NUTRITION MONITORING PLAN: Patient scheduled to return in 2 months; dietitian phone # given for future reference. 30 minute retun visit Nita Enriquez RDN in this encounter Nursing Notes * Dionte Billy LPN - 04/13/2018 12:32 PM EDT Formatting of this note may be different from the original. Pt verified identity by last name and date. Chief Complaint Patient presents with Weight Management Medical Management in this encounter Plan of Treatment Upcoming Encounters Date Type Specialty Care Team Description 04/13/2018 Office Visit Gastroenterology Charles Coello MD [address] [facility] [place] [address] Arrived 04/28/2018 Office Visit Podiatry Chantel Moore DPM [address] [place] [id number] 05/29/2018 Imaging Radiology 06/10/2018 Nutrition Services Gastroenterology Yohn, Nita Abel, RDN [address] [place] [id number] 07/23/2018 Office Visit Internal Medicine Marcela Pinto MD [address] [facility] [place] [address] [phone] Scheduled Tests Name Priority Associated Diagnoses Order S chedule MED NUTRITION TX; SUBSEQ 15 MIN (PROVIDER) Routine Type 2 diabetes mellitus with hemoglobin A1c goal of less than 7.5% (HCC) Obesity, Class II, BMI 35.0-39.9, with comorbidity (see actual BMI) Hyperlipidemia with target LDL less than 100 HTN, goal below 140/90 Ordered: 04/13/2018 Health Maintenance Due Date Last Done Comments [...] of less than 7.5% (HCC) - Primary Obesity, Class II, BMI 35.0- 39.9, with comorbidity (see actual BMI) Morbid obesity Hyperlipidemia with target L DL less than 100 Other and unspecified hyperlipidemia HTN, goal below 140/90 Unspecified essential hypertension in this encounter
--- OUTSIDE RECORDS SUMMARY | 2023-06-18 03:48 | External Medical Summary | Summary of Care ---
Author Name Unknown Organization [place] [address] Phone Care Team Providers Care Management Retail Intern Name Role Phone Marcela Pinto MD Primary Care Provider [phone] Reason for Visit * Reason Comments case management Encounter Details Date Type Department Care Team Description 03/27/2018 Clam Shucker Ancillary [facility] [address] [place] [address] Sigrid Montano RN [address] [place] [address] [phone] Hospital discharge follow-up* Allergies Active Allergy Reactions Severity Noted Date Comments Valsartan 07/10/2010 Enalapril 05/21/2006 Escitalopram Oxalate Nausea/vomiting 10/11/2009 Nauseated Iodinated Diagnostic Agents Nausea/vomiting 05/2010 IV Contrast Lisinopril 05/21/2006 Metoprolol Tartrate 11/18/2006 Made pulse low [place] Oil-Black Currant-Vit E 07/10/2010 Verapamil 03/21/2004 Bupropion [...] DAY INTO BOTH EYES 4 10/29/2014 Active IRON 325 (65 FE) MG PO TABS 1 daily Active Probiotic Product (PROBIOTIC DAILY) Capsule Take [...] 7.0% ([facility]) USE TO TEST BLOOD SUGAR 4 [...] DilTIAZem HCl ER Coated Beads 360 MG [id number]:HTN, goal below 130/80 TAKE 1 CAPSULE EVERY [...] A DAY 1 Inhaler 5 02/03/2018 Active HYDROcodone-acetamin ophen 5-325 mg per tab 5-325 MG per tabletIndications:Ge neralized osteoarthritis Take 1 Tab by mouth every 6 hours as needed for Pain, Breakthrough. 120 Tab 0 02/20/2018 Active zafirlukast (ACCOLATE) 20 MG TabletIndications:As thma [...] MOUTH DAILY 90 Tab 1 03/20/2018 Active as of this encounter Active Problems Problem Noted Date Ischemic colitis (HCC) 10/01/2017 Lower GI bleed 04/21/2017 Irritable bowel syndrome with constipati on 04/21/2017 Elevated plasma metanephrines 02/20/2017 Type 2 diabetes mellitus with hemoglobin A1c goal of less than 7.5% ([facility]) 02/12/2017 Hypercalcemia 02/12/2017 Controlled substance agreement [...] of colon 07/25/2011 COPD, moderate ([facility]) 07/19/2011 Overview: Dr Bhatti every 6 months Allergic rhinitis 07/19/2011 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 Asthma with severity to be determined Carpal tunnel syndrome EDEMA dependent, ankles Generalized osteoarthritis ACEI/ARB contraindicated as of this encounter Resolved Problems Problem Noted Date Resolved Date DM (diabetes mellitus), type 2 ([facility]) 08/07/2015 06/25/2017 Nausea 09/05/2012 06/25/2017 Overview: ICD-10 update of inactive term HTN, GOAL BELOW 140/80 06/01/2012 6 Overview: Per HTN Protocol #27. Hypoxemia 10/08/2011 10/30/2015 Genetic Sleep Disorder Research Other*[id number] 07/25/2011 05/15/2016 Obesity, morbid (more than 1 00 lbs over ideal weight or BMI > 40) ([facility]) 01/09/2010 08/19/2017 Overview: Per Obesity Taxonomy [...] Progress Notes * Sigrid Montano RN - 03/27/2018 3:25 PM EDT Case Management Assessment 02/27/2018 through 03/01/2018--[facility], dc to home, no services dc dx GI bleed, diverticulosis, polyps of ascending colon reports hx of SBO in 11/2017 requiring surgery at [facility] PROCEDURES: colonoscopy with polypectomy NO NEW/CHANGED/STOPPED MEDS 03/15/2018--[facility] ER -- dx with cellulitis and +Lyme disease NEW MED: doxycycline 100 mg BID x 14 days Is this call for a hospital, care home or rehab facility discharge to home? Yes [facility] #3 S: Reports: newly dx cellulitis/insect bite / +Lyme's on doxy 100 mg x 14 days, making her stomach upset has pcp apt 03/31 all else okay Weight gain: does not weigh daily, thinks she has lost about 10 lbs Increased edema: denies Chest pain denies Increased shortness of breath: "about the same, if I do a lot of cleaning or walk too far, I get short of breath" Chills / Sweats / Fever: denies chills/sweats and denies fever Fall: denies any falls since last Care Management encounter Appetite: feeling nauseated from doxycycline, trying to eat Bowel: always constipated, takes senna daily, then adds miralax Bladder: denies problems Blood sugar: checks sugar, doesn't take the pill unless sugar is up (150 or something like that) O: Phone visit for [facility] #3 hospital discharge follow up. Medications: reviewed and updated epic, takes all medications as prescribed. and denies side effects A: Patient Centered Prioritized Goals: 1. Patient will take all medications as indicated 2. Patient will keep all follow up appointments 3. Patient will remain free from infections Identified Barriers: Age >70, lack of understanding of condition/treatment FUNCTIONAL STATUS: (Definition - assess ability to [...] to communicate, understand instructions, process information. P: Clam Shucker Interventions: Explained/reinforced role of pillowcase folder. Encouraged to call with any issues or concerns. Gave direct phone number and contact information. Reviewed upcoming appt date and time Reviewed recent lab results with note to pcp (no one got back to patient about repeat CBC, looks the same, she wants to know if she should continue iron every other day) Reviewed reportable symptoms PCP Notified of enrollment in CM/HM program: No SNP Member? No Re-evaluation of plan of care and progress towards goals achievement: Rectal bleeding has resolved Plan to call patient in one to two weeks to reassess and update plan of care, instructed to call Clam Shucker or Primary Care Provider with change in symptoms or as needed before next follow-up, verbalizes understanding and agrees with plan. Sigrid Montano, RN Outpatient Clam Shucker in this encounter Plan of Treatment Upcoming Encounters Date Type Specialty Care Team Description 03/31/2018 Office Visit Internal Medicine Marcela Pinto MD [address] [facility] [place] [address] [phone] 04/02/2018 Office Visit Podiatry Chantel Moore DPM [address] [facility] [place] [address] 04/13/2018 Nutrition Services Gastroenterology Nita Enriquez RDN [address] [facility] [address] 04/13/2018 Office Visit Gastroenterology Charles Coello MD [address] [place] [address] [phone] 05/29/2018 Imaging Radiology 07/23/2018 Office Visit Internal Medicine Marcela Pinto MD [address] [facility], [place] [address] [phone] Health Maintenance Due Date Last Done Comments DTaP,Tdap,and Td Vaccines (1 - Tdap) 03/01/2009 02/28/2009 *ASTHMA ACTION PLAN-ADULT YEARLY 10/05/2014 DIABETES-HGBA1C EVERY [...] 2014, 05/21/2006 Influenza Vaccine (FLU shot) Completed , 08/15/2016, 07/14/2015, Additional history exists as of this encounter Implants Not on fileas of this encounter Visit Diagnoses Diagnosis Hospital discharge follow-up - Primary Other follow-up examination in this encounter
--- OUTSIDE RECORDS SUMMARY | 2023-06-18 03:48 | External Medical Summary | Summary of Care ---
Author Name Unknown Organization [place] [address] Phone Care Team Providers Care Lowerator Operator Name Role Phone Marcela Pinto MD Primary Care Provider [phone] Reason for Visit * Reason Comments MEDICATION QUESTION Encounter Details Date Type Department Care Team Description 04/16/2018 Telephone Gastroenterology, [facility] [address] [facility] [place] [address] Charles Coello MD [address] [facility] [place] [address] MEDICATION QUESTION Allergies Active Allergy Reactions Severity Noted Date Comments Valsartan 07/10/2010 Enalapril 05/21/2006 Escitalopram Oxalate Nausea/vomiting 10/11/2009 Nauseated Iodinated Diagnostic Agents Nausea/vomiting 05/2010 IV Contrast Lisinopril 05/21/2006 Metoprolol Tartrate 11/18/2006 Made pulse low [place] Oil-Black Currant-Vit E 07/10/2010 Verapamil 03/21/2004 Bupropion [...] ([facility]) USE TO TEST BLOOD SUGAR 4 [...] DilTIAZem HCl ER Coated Beads 360 MG [id number]:HTN, goal below 130/80 TAKE 1 CAPSULE EVERY [...] Active Problems Problem Noted Date Ischemic colitis ([facility]) 10/01/2017 Lower GI bleed 04/21/2017 Irritable bowel syndrome with constipati on 04/21/2017 Elevated plasma metanephrines 02/20/2017 Type 2 diabetes mellitus with hemoglobin A1c goal of less than 7.5% ([facility]) 02/12/2017 Hypercalcemia 02/12/2017 Controlled substance agreement signed [...] AHP Diverticulitis of colon 07/25/2011 COPD, moderate ([facility]) 07/19/2011 Overview: Dr Bhatti every 6 months Allergic rhinitis 07/19/2011 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 Asthma with severity to be determined Carpal tunnel syndrome EDEMA dependent, ankles Generalized osteoarthritis ACEI/ARB contraindicated as of this encounter Resolved Problems Problem Noted Date Resolved Date DM (diabetes mellitus), type 2 ([facility]) 08/07/2015 06/25/2017 Nausea 09/05/2012 06/25/2017 Overview: ICD-10 update of inactive term HTN, GOAL BELOW 140/80 06/01/2012 6 Overview: Per HTN Protocol #27. Hypoxemia 10/08/2011 10/30/2015 Genetic Sleep Disorder Research Other*[id number] 07/25/2011 05/15/2016 Obesity, morbid (more than 1 00 lbs over ideal weight or BMI > 40) ([facility]) 01/09/2010 08/19/2017 Overview: Per Obesity Taxonomy HTN, [...] encounter Miscellaneous Notes * Telephone Encounter - Charles Coello MD - 04/16/2018 1:58 PM EDT That is fine. Charles Coello MD * Telephone Encounter - Bernadine Nunez OSA - 04/16/2018 9:30 AM EDT Pt calling in regards to her Omeprazole and Ranitidine prescriptions. She stated she was told by the pharmacy to ask dr if she is to be taking both medications. Please advise pt at [phone]. Thank you, Bernadine Nunez Wireless Network Engineer Pharmacy Refill Call Center 04/16/2018, 9:30 AM in this encounter Plan of Treatment Upcoming Encounters Date Type Specialty Care Team Description 04/28/2018 Office Visit Podiatry Chantel Moore, LEONARD [address] [place] [address] 05/01/2018 Procedure Only Endoscopy Zulay Eagle, [address] [facility] [place] [address] 05/29/2018 Imaging Radiology 06/10/2018 Nutrition Services Gastroenterology Nita Enriquez RDN [address] [place] [address] 07/23/2018 Office Visit Internal Medicine Marcela Pinto MD [address] [facility], [place] [id number] Health Maintenance Due Date Last Done Comments [...]
--- OUTSIDE RECORDS SUMMARY | 2023-06-18 03:48 | External Medical Summary | Summary of Care ---
Author Name Unknown Organization [place] [address] Phone Care Team Providers Care Presser And Blocker Knitted Goods Name Role Phone Alex Pinot MD Primary Care Provider [phone] Reason for Visit * Reason Comments eRx-Medication Refill Encounter Details Date Type Department Care Team Description 03/20/2018 Refill General Internal Medicine [facility] [address] [place] [address] Alex Pinto MD [address] [place] [address] [phone] Type 2 diabetes mellitus with hemoglobin A1c goal of less than 7.5% ([facility]);HTN, goal below 140/90 Allergies Active Allergy Reactions [...] DAY INTO BOTH EYES 4 5 Active IRON 325 (65 FE) MG PO [...] severity to be determined,COPD, moderate ([facility]) USE ONE NEBULIZER TREATMENT TWICE A DAY NEEDED FOR WORSENING ASTHMA. J45.909, J44.9 225 mL 1 7 Active dicyclomine (BENTYL) 20 MG TabletIndications:C hronic constipation TAKE 1 TABLET BY MOUTH EVERY DAY 90 Tab 2 7 Active Terazosin HCl 2 MG Capsule TAKE ONE CAPSULE BY MOUTH EVERY DAY 90 Cap 1 8 Active DilTIAZem HCl ER Coated Beads 360 MG [id number]:HTN , goal below 130/80 TAKE 1 CAPSULE [...] A DAY 1 Inhaler 5 8 Active HYDROcodone-acetami nophen 5-325 mg per tab 5-325 MG per tabletIndications:G eneralized osteoarthritis Take 1 Tab by mouth every 6 hours as needed for Pain, Breakthrough. 120 Tab 0 8 Active zafirlukast (ACCOLATE) [...] MOUTH DAILY 90 Tab 1 8 Active glimepiride (AMARYL) 4 MG TabletIndications:T ype 2 diabetes mellitus with hemoglobin A1c goal of less than 7.5% ([facility]) TAKE 1 TABLET BY MOUTH IN THE MORNING AND 1/2 TABLET BY MOUTH IN THE EVENING 135 Tab 1 7 03/20/20 18 Discontinued KLOR-CON M20 20 MEQ TBCRIndications:HTN , goal below 140/90 TAKE 1 TABLET BY MOUTH DAILY 90 Tab 1 7 03/20/20 18 Discontinued as of this encounter Active [...] Hypoxemia 10/08/2011 10/30/2015 Genetic Sleep Disorder Research Other*[id number] 07/25/2011 05/15/2016 Obesity, morbid (more than 1 00 lbs over ideal weight or BMI > 40) ([facility]) 01/09/2010 08/19/2017 Overview: Per Obesity Taxonomy HTN, [...] Telephone Encounter - Alex Pinto MD - 03/20/2018 10:48 AM EDT Signed Prescriptions: Disp Refills glimepiride (AMARYL) 4 MG Tablet 135 Tab1 Sig: TAKE 1 TABLET BY MOUTH IN THE MORNING AND 1/2 TABLET BY MOUTH IN THE EVENING Authorizing Provider: ALEX PINTO KLOR-CON M20 20 MEQ TBCR 90 Tab 1 Sig: TAKE 1 TABLET BY MOUTH DAILY Authorizing Provider: ALEX PINTO * Telephone Encounter - Joanna Ontiveros LPN - 03/20/2018 9:59 AM EDT Pending Prescriptions: Disp Refills glimepiride (AMARYL) 4 MG Tablet [Pharmac*135 Tab1 Sig: TAKE 1 TABLET BY MOUTH IN THE MORNING AND 1/2 TABLET BY MOUTH IN THE EVENING KLOR-CON M20 20 MEQ TBCR [Pharmacy Med Na*90 Tab 1 Sig: TAKE 1 TABLET BY MOUTH DAILY * Telephone Encounter - Joanna Ontiveros LPN - 03/20/2018 9:58 AM EDT Formatting of this note may be different from the original. Pending Prescriptions: Disp Refills glimepiride (AMARYL) 4 MG Tablet [Pharmac*135 Tab1 Sig: TAKE 1 TABLET BY MOUTH IN THE MORNING AND 1/2 TABLET BY MOUTH IN THE EVENING KLOR-CON M20 20 MEQ TBCR [Pharmacy Med Na*90 Tab 1 Sig: TAKE 1 TABLET BY MOUTH DAILY Last Office Visit: 03/05/2018 Next Office Visit: 03/31/2018 Scheduled Provider(s): Alex Pinto MD Last date the medication was ordered: 09/23/17 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 COPD, moderate ([facility]) J44.9 Allergic rhinitis J30.9 Diverticulitis of colon K57.32 Nocturnal hypoxia G47.34 Sleep apnea, obstructive G47.33 Incisional hernia K43.2 ACEI/ARB contraindicated [id number] HTN, goal below 140/90 I10 Hyperlipidemia with target LDL less than 100 E78.5 Obesity, Class II, BMI 35.0-39.9, with comorbidity (see actual BMI) E66.9 Controlled substance agreement signed Z79.899 Type 2 diabetes mellitus with hemoglobin A1c goal of less than 7.5% ([facility]) E11.9 Hypercalcemia E83.52 Elevated plasma metanephrines R79.89 Lower GI bleed K92.2 Irritable bowel syndrome with constipation K58.1 Ischemic colitis ([facility]) K55.9 Labs: CREATININE-OUTSIDE LAB(MG/DL) Jessica Dt/Tm Resulted Value Status 03/15/18 03/17/18 0.95 FINAL POTASSIUM-OUTSIDE LAB(MMOL/L) [facility] Dt/Tm Resulted Value Status 03/15/18 03/17/18 3.9 FINAL TSH - OUTSIDE LAB(UIU/ML) [facility] Dt/Tm Resulted Value Status 02/27/18 02/27/18 0.927 FINAL LDL (CALCULATED)(mg/dL) [facility] Dt/Tm Resulted Value Status 01/14/18 12:03P 01/14/18 118 EDITED LDL (DIRECT MEASURE)(mg/dL) [facility] Dt/Tm Resulted Value Status 01/14/18 12:03P 01/14/18 114 FINAL ALT(U/L) [facility] Dt/Tm Resulted Value Status 03/13/18 11:53A 03/13/18 23 FINAL Hemoglobin AIC Results: HEMOGLOBIN, A1C(%) [facility] Dt/Tm Resulted Value Status 01/14/18 12:03P 01/14/18 6.2 FINAL HEMOGLOBIN, [id number]-KMPACKU LAB(%) [facility] Dt/Tm Resulted Value Status 11/20/17 11/21/17 6.3 FINAL HEMOGLOBIN, A1C(%) [facility] Dt/Tm Resulted Value Status 05/19/17 12:11P 05/19/17 5.9 FINAL in this encounter Plan of Treatment Upcoming Encounters Date Type Specialty Care Team Description 03/31/2018 Office Visit Internal Medicine Alex Pinto MD [address] [facility] [address] [phone] 04/02/2018 Office Visit Podiatry Chantel Moore, DPM [address] [place] [address] 04/13/2018 Nutrition Services Gastroenterology Nita Enriquez, IWONAN [address] [place] [address] 04/13/2018 Office Visit Gastroenterology [facility] Ce[facility] MD [address] [facility] [address] [phone] 05/29/2018 Imaging Radiology 07/23/2018 Office Visit Internal Medicine Alex Pinto MD [address] [place] [address] [phone] Health Maintenance Due Date Last Done Comments [...]
--- OUTSIDE RECORDS SUMMARY | 2023-06-18 03:48 | External Medical Summary | Summary of Care ---
Author Name Unknown Organization [place] [address] Phone Care Team Providers Care Business Process Expert Name Role Phone Marcela Pinto MD Primary Care Provider [phone] Reason for Visit * Reason Comments case management Encounter Details Date Type Department Care Team Description 03/31/2018 Shearing Machine Operator [facility] [address] [place] [address] Sigrid Montano RN [address] [place] [address] [phone] Hospital discharge follow-up*;COPD, moderate (HCC);Type 2 diabetes mellitus with hemoglobin A1c goal of less than 7.5% (HCC);Ischemic colitis (HCC) Allergies Active Allergy Reactions Severity Noted Date Comments Valsartan 07/10/2010 Enalapril 05/21/2006 Escitalopram Oxalate Nausea/vomiting 10/11/2009 Nauseated Iodinated Diagnostic Agents Nausea/vomiting 05/2010 IV Contrast Lisinopril 05/21/2006 Metoprolol Tartrate 11/18/2006 Made pulse low [place] Oil-Black Currant-Vit E 07/10/2010 Verapamil 03/21/2004 Bupropion [...] DilTIAZem HCl ER Coated Beads 360 MG [id number]:HTN , goal below 130/80 TAKE 1 CAPSULE [...] 120 Tab 0 8 03/31/20 18 Discontinued as of this encounter Active [...] Hypoxemia 10/08/2011 10/30/2015 Genetic Sleep Disorder Research Other*[id number] 07/25/2011 05/15/2016 Obesity, morbid (more than 1 [...] Progress Notes * Sigrid Montano RN - 03/31/2018 3:18 PM EDT Case Management Assessment 02/27/2018 through 03/01/2018--[facility], dc to home, no services dc dx GI bleed, diverticulosis, polyps of ascending colon reports hx of SBO in 11/2017 requiring surgery at [facility] PROCEDURES: colonoscopy with polypectomy NO NEW/CHANGED/STOPPED MEDS PENDING: colon polyp pathology, outpatient barium enema PMH: asthma, COPD moderate, DM2 (6.2), JORDAN, HTN, IBS, ischemic colitis, diverticulosis HM asthma action plan 1 ER / 2 adm previous 12 months Is this call for a hospital, custodial or rehab facility discharge to home? Yes HERMAN #4 post hospital discharge assessment plus NEW caes mgmt intake S: Reports: HERMAN #4--met with patient in the clinic pt finished doxy yesterday still feeling sick in her stomach and getting headaches at night Not taking anything for the headaches reports blood sugars as "good" denies any falls some ankle edema evident today, didn't take her Lasix due to this appointment, takes only as neededfor swelling breathing is fine, sees lung doctor regularly reviewed reportable symptoms -- if swelling increases or does not go down overnight; any breathing problems at all; continuing or worsening nausea or headaches. Denies any needs today. Aware that I am leaving this position and another manager of case will be taking my place in April. will schedule follow up in one month for new cm. Weight gain: weight is down per epic Increased edema: chronic ankle edema unchanged per patient Chest pain denies Increased shortness of breath: sees pulmonology, denies sob/wheezing/coughing Chills / Sweats / Fever: denies chills/sweats and denies fever Fall: denies any falls since last Care Management encounter Appetite: continuing nausea that started with taking doxycycline Bowel: denies problems Bladder: denies problems Medications: takes all medications as prescribed. and denies side effects O: Office visit for HERMAN #4 post hospital discharge follow up plus NEW case mgmt intake. Medications: reviewed Epic, takes all medications as prescribed. and denies side effects A: Patient Centered Prioritized Goals: 1. Patient will take all medications as indicated 2. Patient will keep all follow up appointments 3. Patient will have headaches and nausea resolved. Identified Barriers: lives alone, Patient/caregiver's lack of understanding of their condition [...] to communicate, understand instructions, process information. P: Shearing Machine Operator Interventions: Explained/reinforced role of manager of case. Encouraged to call with any issues or concerns. Gave direct phone number and contact information. COPD: Pt instructed to: -Call with increased SOB, wheezing, chest tightness, increased cough, increased sputum with change in color or consistency and fever. -Wash hands often -Drink plenty of fluids -Use inhalers as directed, do not stop or skip doses -Avoid stress -Rest when tired or SOB -Avoid triggers -Clean inhalers once a week Reviewed hypoglycemia: -check your blood sugar if able -If blood sugar is low, typically less than 70mg/dl-eat or drink one of the Following: *2-3 glucose tablets *1/2 cup of fruit juice *1/2 cup regular soda *6-7 hard candies or jelly beans *1 cup non-fat milk *2 tablespoons of raisins -Wait fifteen minutes and test blood sugar again. If blood sugar is still low, repeat one of the above. -Wait another fifteen minutes. If blood sugar is still low call your health care provider. -If blood sugar is back to normal, eat something with protein. For example, 1/2 turkey sandwich, peanut butter crackers, 1 serving of nuts. This will help prevent your blood sugar from dropping again. PCP Notified of enrollment in CM/HM program: Yes SNP Member? No Re-evaluation of plan of care and progress towards goals achievement: Plan to call patient in 1-3 months to reassess and update plan of care, instructed to call Shearing Machine Operator or Primary Care Provider with change in symptoms or as needed before next follow-up, verbalizesunderstanding and agrees with plan. Sigrid Montano RN Outpatient Shearing Machine Operator in this encounter Plan of Treatment Upcoming Encounters Date Type Specialty Care Team Description 04/02/2018 Office Visit Podiatry Chantel Moore DPM [address] [place] [address] [phone] 04/13/2018 Nutrition Services Gastroenterology Nita Enriquez, IWONAN [address] [place] [address] 04/13/2018 Office Visit Gastroenterology Charles Coello MD [address] [facility] [place] [address] 05/29/2018 Imaging Radiology 07/23/2018 Office Visit Internal Medicine Marcela Pinto MD 200 [place] [address] Health Maintenance Due Date Last [...] discharge follow-up - Primary Other follow-up examination COPD, moderate (HCC) Chronic airway obstruction, not elsewhere classified Type 2 diabetes mellitus wit h hemoglobin A1c goal of less than 7.5% (HCC) Ischemic colitis (HCC) Unspecified vascular insufficiency of intestine in this encounter
--- OUTSIDE RECORDS SUMMARY | 2023-06-18 03:48 | External Medical Summary | Summary of Care ---
Author Name Unknown Organization [place] [address] Phone Care Team Providers Care Phonograph Mechanic Name Role Phone Marcela Pinto MD Primary Care Provider [phone] Reason for Visit * Reason Comments EMERGENCY DEPARTMENT FOLLOW-UP pt madison ureña for ER follow up. Encounter Details Date Type Department Care Team Description 03/31/2018 Office Visit General Internal Medicine [facility] [address] [place] [address] Marcela Pinto MD [address] [place] [address] [phone] Lyme disease*;GENERAL OSTEOARTHROSIS Allergies Active Allergy Reactions Severity Noted Date Comments Valsartan 07/10/2010 Enalapril 05/21/2006 Escitalopram Oxalate Nausea/vomiting 10/11/2009 Nauseated Iodinated Diagnostic Agents Nausea/vomiting 05/2010 IV Contrast Lisinopril 05/21/2006 Metoprolol Tartrate 11/18/2006 Made pulse low [place] Oil-Black Currant-Vit E 07/10/2010 Verapamil 03/21/2004 Bupropion [...] DilTIAZem HCl ER Coated Beads 360 MG [id number]:HTN , goal below 130/80 TAKE 1 CAPSULE [...] Pain, Breakthrough. 120 Tab 0 8 Active doxycycline hyclate 100 MG CapsuleIndications: Lyme disease Take 1 Cap by mouth 2 times a day for 7 days. Take for 7 days 14 Cap 0 8 04/07/20 18 Active HYDROcodone-acetami nophen 5-325 mg per tab 5-325 MG per tabletIndications:G eneralized osteoarthritis Take 1 Tab by mouth every 6 hours as needed for Pain, Breakthrough. 120 Tab 0 8 03/31/20 18 Discontinued as of this encounter Active Problems Problem Noted Date Ischemic colitis ([facility]) 10/01/2017 Lower GI bleed 04/21/2017 Irritable bowel syndrome with constipati on 04/21/2017 Elevated plasma metanephrines 02/20/2017 Type 2 diabetes mellitus with hemoglobin A1c goal of less than 7.5% ([facility]) 02/12/2017 Hypercalcemia 02/12/2017 Controlled substance agreement [...] of colon 07/25/2011 COPD, moderate ([facility]) 07/19/2011 Overview: Dr Bhatti every 6 months Allergic rhinitis 07/19/2011 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 Asthma with severity to be determined Carpal tunnel syndrome EDEMA dependent, ankles Generalized osteoarthritis ACEI/ARB contraindicated as of this encounter Resolved Problems Problem Noted Date Resolved Date DM (diabetes mellitus), type 2 ([facility]) 08/07/2015 06/25/2017 Nausea 09/05/2012 06/25/2017 Overview: ICD-10 update of inactive term HTN, GOAL BELOW 140/80 06/01/2012 6 Overview: Per HTN Protocol #27. Hypoxemia 10/08/2011 10/30/2015 Genetic Sleep Disorder Research Other*[id number] 07/25/2011 05/15/2016 Obesity, morbid (more than 1 00 lbs over ideal weight or BMI > 40) ([facility]) 01/09/2010 08/19/2017 Overview: Per Obesity Taxonomy [...] than 7.0% ([facility]) 08/10/2009 12/03/2012 Overview: Per Diabetes Taxonomy. ICD-10 update of inactive term Type 2 diabetes mellitus wit h hemoglobin A1c goal of less than 7.0% ([facility]) 08/10/2009 Overview: Per Diabetes Taxonomy. ICD-10 [...] Sign Reading Time Taken Blood Pressure 128/62 03/31/2018 2:42 PM EDT Pulse 68 03/31/2018 2:42 PM EDT Temperature 36.9 C (98.4 F) 03/31/2018 2 :42 PM EDT Respiratory Rate 16 03/31/2018 2:42 PM EDT Oxygen Saturation - - Inhaled Oxygen Concentration - - Weight 107 kg (236 lb) 03/31/2018 2:42 PM EDT Height - - Body Mass Index 39.27 03/31/2018 2:42 PM EDT in this encounter Progress Notes * Marcela Pinto MD - 03/31/2018 3:03 PM EDT Formatting of this note may be different from the original. HPI: Nina Harrington is a 77 year old female who presents with: Chief Complaint Patient presents with EMERGENCY DEPARTMENT FOLLOW-UP pt presents for ER follow up. Pt is here for ER follow up. Pt went to [place] ER on March 15 for rash on left sided abd area, possible tick bite. Had headache, fatigue, jointpains. Pt had CMP, UA, Culture, cbcd, Lyme titer. All negative except came back positive IgM for Lyme. Pt was sent home after getting IV Doxy in ER and she finished 2 weeks of Doxy yesterday. Still has some headache, no fever. Rash improving. EKG shoed NSR. No chestpain. Discussed using tylenol as needed for headache. 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 COPD, moderate (HCC) J44.9 Allergic rhinitis J30.9 Diverticulitis of colon K57.32 Nocturnal hypoxia G47.34 Sleep apnea, obstructive G47.33 Incisional hernia K43.2 ACEI/ARB contraindicated [id number] HTN, goal below 140/90 I10 Hyperlipidemia with target LDL less than 100 E78.5 Obesity, Class II, BMI 35.0-39.9, with comorbidity (see actual BMI) E66.9 Controlled substance agreement signed Z79.899 Type 2 diabetes mellitus with hemoglobin A1c goal of less than 7.5% ([facility]) E11.9 Hypercalcemia E83.52 Elevated plasma metanephrines R79.89 Lower GI bleed K92.2 Irritable bowel syndrome with constipation K58.1 Ischemic colitis ([facility]) K55.9 Current Outpatient Prescriptions Medication Sig Dispense Refill albuterol sulfate (PROVENTIL) (2.5 MG/3ML) 0.083% nebulizer solution USE ONE NEBULIZER TREATMENT TWICE A DAY NEEDED FOR WORSENING ASTHMA. J45.909, J44.9 225 mL 1 aspirin enteric coated 81 MG TBEC Take 1 Tab by mouth daily. 100 Tab 3 atorvaSTATin (LIPITOR) 40 MG Tablet Take 1 Tab by mouth daily. 30 Tab 5 AZOPT 1 % OP SUSP INSTILL 1 DROP BY OPHTHALMIC ROUTE 2 TIMES EVERY DAY INTO BOTH EYES 4 busPIRone (BUSPAR) 15 MG Tablet Take 1 Tab by mouth 2 times a day. 60 Tab 5 COMBIVENT RESPIMAT 20-100 MCG/ACT Inhaler TAKE 1 PUFF BY MOUTH 4 TIMES A DAY 1 Inhaler 5 [facility] SENNA 8.6 MG Tablet TAKE 2 TABLETS BY MOUTH EVERY EVENING FOR 10 DAYS NEEDED FOR CONSTIPATION 0 dicyclomine (BENTYL) 20 MG Tablet TAKE 1 TABLET BY MOUTH EVERY DAY 90 Tab 2 DilTIAZem HCl ER Coated Beads 360 MG CP24 TAKE 1 CAPSULE EVERY DAY 90 Cap 1 ferrous sulfate (FEOSOL) 325 (65 FE) MG Tablet Every other day 60 Tab 11 furosemide (LASIX) 40 MG Tablet One pill daily as needed for edema. 30 Tab 11 glimepiride (AMARYL) 4 MG Tablet TAKE 1 TABLET BY MOUTH IN THE MORNING AND 1/2 TABLET BY MOUTH IN THE EVENING 135 Tab 1 Glucose Blood (YEIMY CONTOUR TEST) STRP USE TO TEST BLOOD SUGAR 4 TIMES A DAY FOR DIAGNOSIS CODE OF E11.9 100 Strip 5 Glucose Blood (YEIMY COUNTOUR TEST) STRP R73.09/hgba1c 7.2 Tests up to 3 times daily 100 Strip 5 HYDROcodone-acetaminophen 5-325 mg per tab 5-325 MG per tablet Take 1 Tab by mouth every 6 hours as needed for Pain, Breakthrough. 120 Tab 0 IRON 325 (65 FE) MG PO TABS 1 daily KLOR-CON M20 20 MEQ TBCR TAKE 1 TABLET BY MOUTH DAILY 90 Tab 1 LANCETS MISC Use as directed to test blood sugar once daily--Dx code 250.00 100 Each 3 LUMIGAN 0.01 % OP SOLN INSTILL 1 DROP BY TOPICAL ROUTE EVERY BEDTIME 4 Multiple Vitamins-Minerals (ONE DAILY MULTIVITAMIN WOMEN) TABS one pill each day omeprazole (PRILOSEC) 20 MG CPDR TAKE 1 CAPSULE TWICE DAILY 180 Cap 1 ondansetron ODT (ZOFRAN) 8 MG TBDP DISSOLVE 1 TABLET ON TONGUE EVERY 8 HOURS NEEDED FOR NAUSEA 60 Tab 5 oxygen GAS Use 4 L/min(Oxygen) as directed. polyethylene glycol 3350 (MIRALAX) 255 gram powder Take 17 g by mouth 2 times a day. One cap full in juice, to effect 1 stool per day. . 2 Bottle 3 Probiotic Product (PROBIOTIC DAILY) Capsule Take 1 Cap by mouth daily. SPIRIVA HANDIHALER 18 MCG IN CAPS INHALE 1 CAPSULE VIA HAND HELD INHALER ONCE DAILY AT THE SAMETIME EVERY DAY 30 Cap 5 Terazosin HCl 2 MG Capsule TAKE ONE CAPSULE BY MOUTH EVERY DAY 90 Cap 1 VITAMIN D 1000 UNITS PO TABS one tablet daily XOPENEX HFA 45 MCG/ACT IN AERO TAKE 2 PUFFS EVERY 6 TO 8 HOURS NEEDED 12 zafirlukast (ACCOLATE) 20 MG Tablet TAKE 1 TABLET EVERY DAY 90 Tab 1 The patient's medication list was reviewed and updated as needed. Review of patient's allergies indicates: Allergen Reactions Diovan [Valsartan] Enalapril Escitalopram Oxalate Nausea/vomiting Nauseated Iodinated Diagnostic Agents Nausea/vomiting IV Contrast Lisinopril Metoprolol Tartrate Made pulse low [place] Oil-Black Currant-Vit E Verapamil Wellbutrin [Bupropion Hcl] Makes pt sick in the stomach Past Medical History: Diagnosis Date ACEI/ARB contraindicated Asthma Carpal tunnel syndrome DM type 2, goal: symptom mgmt (HCC) Generalized osteoarthritis HTN, goal below 140/90 Mixed dyslipidemia 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 Marital status: Spouse name: N/A Number of children: 6 Years of education: N/A 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 OBJECTIVE: BP 128/62 | Pulse 68 | Temp (Src) 98.4 (Tympanic) | Resp 16 | Wt 236 lbs (107.049kg) | BMI 39.27 kg/m | BSA 2.22 m PHYSICAL EXAM: HEENT: PERRLA, EOMI, anicteric sclera,, no pharyngeal erythema, no lymphadenopathy, neck supple CVS: RRR, systolic murmer in Rt parasternal area, pulmonary area, rubs or gallops, s1 s 2normal. RESP: clear to auscultation, no wheezing or crackles ABD: soft, NT/ND, faint rash left mid abdominal area. EXT: Bl Trace edema edema, cyanosis, peripheral pulses palpable bilaterally No large joint swelling, no redness, range of motion normal. Skin faint rash in left sided abd area. ASSESSMENT AND PLAN: A69.20 Lyme disease (primary encounter diagnosis) Take one more week of Doxy 100 mg po bid. M15.9 General osteoarthrosis Tylenol as needed for jointpain or headaches. Marcela Pinto MD in this encounter Nursing Notes * Wily Dickinson LPN - 03/31/2018 2:40 PM EDT Formatting of this note may be different from the original. Chief Complaint Patient presents with EMERGENCY DEPARTMENT FOLLOW-UP pt presents for ER follow up. Pt reports she had a tick bite on ABD. Pt reports she was tx for 14 days with doxy and is still having pain in arms and legs, GRAVES in this encounter Plan of Treatment Upcoming Encounters Date Type Specialty Care Team Description 04/02/2018 Office Visit Podiatry Chantel Moore DPM [address] [place] [address] [place] [address] 04/13/2018 Nutrition Services Gastroenterology Nita Enriquez RDN [address] [place] [place] [address] 04/13/2018 Office Visit Gastroenterology Charles Coello MD [address] [place] [address] [phone] 05/29/2018 Imaging Radiology 07/23/2018 Office Visit Internal Medicine Marcela Pinto MD [address] [place], [place] [address] [phone] Health Maintenance Due Date Last Done Comments [...] this encounter Visit Diagnoses Diagnosis Lyme disease - Primary GENERAL OSTEOARTHROSIS Generalized osteoarthrosis, unspecified site in this encounter"
--- OUTSIDE RECORDS SUMMARY | 2023-06-18 03:48 | External Medical Summary | Summary of Care ---
Author Name Unknown Organization [place] [address] Phone Care Team Providers Care Heating And Ventilating Drafter Name Role Phone Marcela Pinto MD Primary Care Provider [phone] Encounter Details Date Type Department Care Team Description 03/17/2018 Orders Only General Internal Medicine [facility] [address] [address] Marcela Pinto MD [address] [place] [address] [phone] Allergies Active Allergy Reactions Severity Noted Date Comments Valsartan 07/10/2010 Enalapril 05/21/2006 Escitalopram Oxalate Nausea/vomiting 10/11/2009 Nauseated Iodinated Diagnostic Agents Nausea/vomiting 05/2010 IV Contrast Lisinopril 05/21/2006 Metoprolol Tartrate 11/18/2006 Made pulse low [place] [...] EVERY DAY 90 Tab 2 09/16/2017 Active glimepiride (AMARYL) 4 MG TabletIndications:Ty pe 2 diabetes mellitus with hemoglobin A1c goal of less than 7.5% ([facility]) TAKE 1 TABLET BY MOUTH IN THE MORNING AND 1/2 TABLET BY MOUTH IN THE EVENING 135 Tab 1 09/23/2017 Active KLOR-CON M20 20 MEQ TBCRIndications:HTN, goal below 140/90 TAKE 1 TABLET BY MOUTH DAILY 90 Tab 1 09/23/2017 Active Terazosin HCl 2 MG Capsule TAKE ONE CAPSULE BY MOUTH EVERY DAY 90 Cap 1 11/03/2017 Active DilTIAZem HCl ER Coated Beads 360 MG [id number]:HTN, goal below 130/80 TAKE 1 CAPSULE EVERY [...] sthma with severity to be determined,COPD, moderate ([facility]) TAKE 1 PUFF BY MOUTH [...] other day 60 Tab 11 03/05/2018 Active as of this encounter Active Problems Problem Noted Date Ischemic colitis (HCC) 10/01/2017 Lower GI bleed 04/21/2017 Irritable bowel syndrome with constipati on 04/21/2017 Elevated plasma metanephrines 02/20/2017 Type 2 diabetes mellitus with hemoglobin A1c goal of less than 7.5% ([facility]) 02/12/2017 Hypercalcemia 02/12/2017 Controlled substance [...] AHP Diverticulitis of colon 07/25/2011 COPD, moderate ([facility]) 07/19/2011 Overview: Dr Bhatti every 6 months Allergic rhinitis 07/19/2011 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 Asthma with severity to be determined Carpal tunnel syndrome EDEMA dependent, ankles Generalized osteoarthritis ACEI/ARB contraindicated as of this encounter Resolved Problems Problem Noted Date Resolved Date DM (diabetes mellitus), type 2 ([facility]) 08/07/2015 06/25/2017 Nausea 09/05/2012 06/25/2017 Overview: ICD-10 update of inactive term HTN, GOAL BELOW 140/80 06/01/2012 6 Overview: Per HTN Protocol #27. Hypoxemia 10/08/2011 10/30/2015 Genetic Sleep Disorder Research Other*[id number] 07/25/2011 05/15/2016 Obesity, morbid (more than 1 00 lbs over ideal weight or BMI > 40) ([facility]) 01/09/2010 08/19/2017 Overview: Per Obesity [...] [address] [place] [address] [phone] 04/13/2018 Office Visit Gastroenterology Charles Coello MD [address] [facility] [place] [address] [phone] 05/29/2018 Imaging Radiology 07/23/2018 Office Visit Internal Medicine Marcela Pinto MD 200 [facility] [place], [place] [address] [phone] Pending Results Name Priority Associated Diagnoses Date/Ti me CHEMISTRY-OUTSIDE Routine 03/15/2018 12:00 AM EDT Health Maintenance Due Date Last Done Comments DTaP,Tdap,and Td Vaccines (1 - Tdap) 03/01/2009 02/28/2009 *ASTHMA ACTION PLAN-ADULT YEARLY 10/05/2014 DIABETES-HGBA1C EVERY 6 MONTHS 07/16/2018 0 01/14/2018, 11/20/2017, 05/19/2017, Additional history exists DIABETES-EYE EXAM 08/04/2018 08/04/2017, , 09/23/2011, Additional history exists DIABETES-URINE MICROALBUMIN EVERY 12 MONTHS 11/20/2018 11/20/2017, 05/19/2017, 05/19/2017, Additional history exists DIABETES-LDL EVERY 12 MONTHS 01/14/201901/2018, 01/14/2018, 06/23/2017, Additional history exists DIABETES-FOOT EXAM 01/16/2019 01/16/2018, 0 11/15/2016, 02/23/2016, Additional history exists DXA-EVERY 5 YRS-USE SMARTSET [...]
--- OUTSIDE RECORDS SUMMARY | 2023-06-18 03:48 | External Medical Summary | Summary of Care ---
Author Name Unknown Organization [place] [address] Phone Care Team Providers Care Panel Edge Painter Name Role Phone Marcela Pinto MD Primary Care Provider [phone] Reason for Visit * Reason Comments OUTPATIENT TESTING Encounter Details Date Type Department Care Team Description 03/18/2018 Telephone General Internal Medicine [facility] [address] [place] [address] Marcela Pinto MD 200 [place] [address] [phone] OUTPATIENT TESTING Allergies Active Allergy Reactions Severity Noted Date [...] DilTIAZem HCl ER Coated Beads 360 MG VP98Xbfykjpbzht:HTN, goal below 130/80 TAKE 1 CAPSULE EVERY [...] Hypoxemia 10/08/2011 10/30/2015 Genetic Sleep Disorder Research Other*[id number] 07/25/2011 05/15/2016 Obesity, morbid (more than 1 [...] encounter Miscellaneous Notes * Telephone Encounter - Mirna Zendejas, RT - 03/18/2018 11:34 AM EDT Patient is due for yearly mammogram. Please sign pending order and we will contact the patient. Thanks. Next Office Visit: 03/31/2018 Scheduled Provider(s): Marcela Pinto MD in this encounter Plan of Treatment Upcoming Encounters Date Type Specialty Care Team Description 03/31/2018 Office Visit Internal Medicine Marcela Pinto MD 200 [facility] [address] [phone] 04/02/2018 Office Visit Podiatry Chantel Moore, DPM [address] [place] [id number] 04/13/2018 Nutrition Services Gastroenterology Nita Enriquez, AKIKO [address] [facility] [place] [id number] 04/13/2018 Office Visit Gastroenterology Charles Coello MD 132 [place] [address] [phone] 05/29/2018 Imaging Radiology 07/23/2018 Office Visit Internal Medicine Marcela Pinto MD [address] [facility] [address] [phone] Scheduled Tests Name Priority Associated Diagnoses Order S chedule MAMMOGRAM SCREENING BILATERAL Routine Screening for malignant neoplasm of breast Ordered: 03/19/2018 Health Maintenance Due Date Last Done Comments [...] fileas of this encounter Visit Diagnoses Diagnosis Screening for malignant neop lasm of breast - Primary Breast screening, unspecified in this encounter
--- OUTSIDE RECORDS SUMMARY | 2023-06-18 03:48 | External Medical Summary | Summary of Care ---
Author Name Unknown Organization [place] [address] Phone Care Team Providers Care Manager Respiratory Care Name Role Phone Marcela Pinto MD Primary Care Provider [phone] Reason for Visit * Reason Comments OUTPATIENT TESTING Encounter Details Date Type Department Care Team Description 03/18/2018 Telephone General Internal Medicine [facility] [address] [place] [address] Marcela Pinto MD [address] [place] [address] [phone] OUTPATIENT TESTING Allergies Active Allergy Reactions Severity Noted Date Comments Valsartan 07/10/2010 Enalapril 05/21/2006 Escitalopram Oxalate Nausea/vomiting 10/11/2009 Nauseated Iodinated Diagnostic Agents Nausea/vomiting 05/2010 IV Contrast Lisinopril 05/21/2006 Metoprolol Tartrate 11/18/2006 Made pulse low [place] Oil-Black Currant-Vit E 07/10/2010 Verapamil 03/21/2004 Bupropion [...] DilTIAZem HCl ER Coated Beads 360 MG DL28Pborxbnqlaq:HTN, goal below 130/80 TAKE 1 CAPSULE EVERY [...] 7.5% ([facility]) 02/12/2017 Hypercalcemia 02/12/2017 Controlled substance agreement signed [...] AHP Diverticulitis of colon 07/25/2011 COPD, moderate ([facility]) 07/19/2011 Overview: Dr Bhatti every 6 months Allergic rhinitis 07/19/2011 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 Asthma with severity to be determined Carpal tunnel syndrome EDEMA dependent, ankles Generalized osteoarthritis ACEI/ARB contraindicated as of this encounter Resolved Problems Problem Noted Date Resolved Date DM (diabetes mellitus), type 2 ([facility]) 08/07/2015 06/25/2017 Nausea 09/05/2012 06/25/2017 Overview: ICD-10 update of inactive term HTN, GOAL BELOW 140/80 06/01/2012 6 Overview: Per HTN Protocol #27. Hypoxemia 10/08/2011 10/30/2015 Genetic Sleep Disorder Research Other*[id number] 07/25/2011 05/15/2016 Obesity, morbid (more than 1 00 lbs over ideal weight or BMI > 40) ([facility]) 01/09/2010 08/19/2017 Overview: Per Obesity Taxonomy HTN, [...] Visit Internal Medicine Marcela Pinto MD 200 [place] [address] [phone] 04/02/2018 Office Visit Podiatry Chantel Moore, DPM [address] [place] [phone] 04/13/2018 Nutrition Services Gastroenterology Nita Enriquez, AKIKO [address] [facility] [place] [phone] 04/13/2018 Office Visit Gastroenterology Charles Coello MD 132 [place] [address] [phone] 05/29/2018 Imaging Radiology 07/23/2018 Office Visit Internal Medicine Marcela Pinto MD [address] [place] [address] [phone] Scheduled Tests Name Priority Associated Diagnoses Order [...]
--- OUTSIDE RECORDS SUMMARY | 2023-06-18 03:48 | External Medical Summary | Summary of Care ---
Author Name Unknown Organization [place] [address] Phone Care Team Providers Care Regulatory Affairs Consultant Name Role Phone Marcela Pinto MD Primary Care Provider [phone] Reason for Visit * Reason Comments MEDICATION QUESTION Encounter Details Date Type Department Care Team Description 04/16/2018 Telephone Gastroenterology, [facility] [address] [place] [address] Charles Coello MD [address] [place] [address] MEDICATION QUESTION Allergies Active Allergy Reactions Severity Noted Date Comments Valsartan 07/10/2010 Enalapril 05/21/2006 Escitalopram Oxalate Nausea/vomiting 10/11/2009 Nauseated Iodinated Diagnostic Agents Nausea/vomiting 05/2010 IV Contrast Lisinopril 05/21/2006 Metoprolol Tartrate 11/18/2006 Made pulse low [place] Oil-Black Currant-Vit E 07/10/2010 Verapamil 03/21/2004 Bupropion [...] DilTIAZem HCl ER Coated Beads 360 MG GM65Bximafpbdti:HTN, goal below 130/80 TAKE 1 CAPSULE EVERY [...] Hypoxemia 10/08/2011 10/30/2015 Genetic Sleep Disorder Research Other*[id number] 07/25/2011 05/15/2016 Obesity, morbid (more than 1 [...] taking both medications. Please advise pt at [phone]. Thank you, Bernadine Nunez Floor Covering Printer Assistant Pharmacy Refill Call Center 04/16/2018, 9:30 AM [...] Visit Internal Medicine Marcela Pinto MD 200 [facility], [place] [address] Health Maintenance Due Date Last Done Comments [...]
--- OUTSIDE RECORDS SUMMARY | 2023-06-18 03:48 | External Medical Summary | Summary of Care ---
Author Name Unknown Organization [place] [address] Phone Care Team Providers Care Senior Trial Attorney Name Role Phone Marcela Pitno MD Primary Care Provider [phone] Reason for Visit * Reason Comments APPOINTMENT Encounter Details Date Type Department Care Team Description 03/31/2018 Telephone General Internal Medicine [facility] [address] [facility] [place] [address] Marcela Pinto MD 200 [place] [address] [phone] APPOINTMENT Allergies Active Allergy Reactions Severity Noted Date Comments Valsartan 07/10/2010 Enalapril 05/21/2006 Escitalopram Oxalate Nausea/vomiting 10/11/2009 Nauseated Iodinated Diagnostic Agents Nausea/vomiting 05/2010 IV Contrast Lisinopril 05/21/2006 Metoprolol Tartrate 11/18/2006 Made pulse low [place] Oil-Black Currant-Vit E 07/10/2010 Verapamil 03/21/2004 [...] DilTIAZem HCl ER Coated Beads 360 MG CC06Dsnlasmddhy:HTN, goal below 130/80 TAKE 1 CAPSULE EVERY [...] than 7.5% ([facility]) TAKE 1 TABLET BY MOUTH IN [...] Pain, Breakthrough. 120 Tab 0 03/31/2018 Active doxycycline hyclate 100 MG CapsuleIndications:L yme disease Take 1 Cap by mouth 2 times a day for 7 days. Take for 7 days 14 Cap 0 03/31/2018 8 Active as of this encounter Active Problems Problem Noted Date Ischemic colitis ([facility]) 10/01/2017 Lower GI bleed 04/21/2017 Irritable bowel syndrome with constipati on 04/21/2017 Elevated plasma metanephrines 02/20/2017 Type 2 diabetes mellitus with hemoglobin A1c goal of less than 7.5% ([facility]) 02/12/2017 Hypercalcemia 02/12/2017 Controlled substance agreement [...] colon 07/25/2011 COPD, moderate ([facility]) 07/19/2011 Overview: Dr Bhatti every 6 months Allergic rhinitis 07/19/2011 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 Asthma with severity to be determined Carpal tunnel syndrome EDEMA dependent, ankles Generalized osteoarthritis ACEI/ARB contraindicated as of this encounter Resolved Problems Problem Noted Date Resolved Date DM (diabetes mellitus), type 2 ([facility]) 08/07/2015 06/25/2017 Nausea 09/05/2012 06/25/2017 Overview: ICD-10 update of inactive term HTN, GOAL BELOW 140/80 06/01/2012 6 Overview: Per HTN Protocol #27. Hypoxemia 10/08/2011 10/30/2015 Genetic Sleep Disorder Research Other*[id number] 07/25/2011 05/15/2016 Obesity, morbid (more than 1 00 lbs over ideal weight or BMI > 40) ([facility]) 01/09/2010 08/19/2017 Overview: Per Obesity Taxonomy [...] Telephone Encounter - Elenita Nichole OSA - 04/01/2018 10:34 AM EDT Pt already scheduled for July appt * Telephone Encounter - Rosa Elena Ambrocio OSA - 03/31/2018 5:21 PM EDT Return in about 6 months. Pt left without checking out in this encounter Plan of Treatment Upcoming Encounters Date Type Specialty Care Team Description 04/02/2018 Office Visit Podiatry Chantel Moore, DPM [address] [place] [address] 04/13/2018 Nutrition Services Gastroenterology Nita Enriquez, IWONAN [address] [place] [address] 04/13/2018 Office Visit Gastroenterology Charles Coello MD 132 [facility] [place] [address] 05/29/2018 Imaging Radiology 07/23/2018 Office Visit Internal Medicine Marcela Pinto MD 200 [place] [address] Health Maintenance Due Date Last Done [...]
--- OUTSIDE RECORDS SUMMARY | 2023-06-18 03:48 | External Medical Summary | Summary of Care ---
Author Name Unknown Organization [place] [address] Phone Care Team Providers Care Buncher Machine Name Role Phone Marcela Pinto MD Primary Care Provider [phone] Reason for Visit * Reason Comments APPOINTMENT Encounter Details Date Type Department Care Team Description 04/01/2018 Telephone Podiatry [facility] 132 [facility] [place] [address] Chantel Moore DPM [address] [facility] [place] [address] APPOINTMENT Allergies Active Allergy Reactions Severity Noted Date Comments Valsartan 07/10/2010 Enalapril 05/21/2006 Escitalopram Oxalate Nausea/vomiting 10/11/2009 Nauseated Iodinated Diagnostic Agents Nausea/vomiting 05/2010 IV Contrast Lisinopril 05/21/2006 Metoprolol Tartrate 11/18/2006 Made pulse low [place] Oil-Black Currant-Vit E 07/10/2010 Verapamil 03/21/2004 Bupropion [...] DilTIAZem HCl ER Coated Beads 360 MG SL34Rqpvjjchvdu:HTN, goal below 130/80 TAKE 1 CAPSULE EVERY [...] Hypoxemia 10/08/2011 10/30/2015 Genetic Sleep Disorder Research Other*[id number] 07/25/2011 05/15/2016 Obesity, morbid (more than 1 [...] encounter Miscellaneous Notes * Telephone Encounter - Natali Saucedo OSA - 04/01/2018 12:13 PM EDT Pt is rescheduled. Pt is aware of appt date and time. Thank you. * Telephone Encounter - Veena Castanon, JORDAN - 04/01/2018 10:02 AM EDT Pt is requesting a call back to reschedule her 6--18 apt with Chantel Moore, in this encounter Plan of Treatment Upcoming Encounters Date Type Specialty Care Team Description 04/13/2018 Nutrition Services Gastroenterology Nita Enriquez, RDN [address] [place] [address] 04/13/2018 Office Visit Gastroenterology Charles Coello MD 132 [facility] [place] [address] 04/28/2018 Office Visit Podiatry Chantel Moore, DPM [address] [place] [address] 05/29/2018 Imaging Radiology 07/23/2018 Office Visit Internal Medicine Marcela Pinto MD 200 [facility], [place] [id number] Health Maintenance Due Date Last Done Comments [...] history exists DXA-EVERY 5 YRS-USE SMARTSET # [id number] TO ORDER 05/01/2020 05/01/2015, 06/19/2010, 06/19/2010, Additional history exists COLONOSCOPY-EVERY 3 YRS AGES 18-100 02/28/2021 02/28/2018, 06/05/2017, 05/29/2016, Additional history exists PNEUMOCOCCAL ADULT 65 YRS AND OVER Completed 2014, 05/21/2006 Influenza Vaccine (FLU shot) Completed , 08/15/2016, 07/14/2015, Additional history exists as of this encounter Implants Not on fileas of this encounter
--- OUTSIDE RECORDS SUMMARY | 2023-06-18 03:48 | External Medical Summary | Summary of Care ---
Author Name Unknown Organization [place] [address] Phone Care Team Providers Care Natural Resource Manager Name Role Phone Marcela Pinto MD Primary Care Provider [phone] Reason for Visit * Reason Comments EMERGENCY DEPARTMENT FOLLOW-UP Encounter Details Date Type Department Care Team Description 03/18/2018 Telephone General Internal Medicine [facility] [address] [address] Marcela Pinto MD 200 [place] [address] [phone] EMERGENCY DEPARTMENT FOLLOW-UP Allergies Active Allergy Reactions Severity Noted Date Comments Valsartan 07/10/2010 Enalapril 05/21/2006 Escitalopram Oxalate Nausea/vomiting 10/11/2009 Nauseated Iodinated Diagnostic Agents Nausea/vomiting 05/2010 IV Contrast Lisinopril 05/21/2006 Metoprolol Tartrate 11/18/2006 Made pulse low [place] Oil-Black Currant-Vit E 07/10/2010 Verapamil 03/21/2004 Bupropion [...] less than 7.5% ([facility]) TAKE 1 TABLET BY MOUTH [...] DilTIAZem HCl ER Coated Beads 360 MG [id number]:HTN, goal below 130/80 TAKE 1 CAPSULE EVERY [...] less than 7.5% ([facility]) 02/12/2017 Hypercalcemia 02/12/2017 Controlled [...] Diverticulitis of colon 07/25/2011 COPD, moderate ([facility]) 07/19/2011 Overview: Dr Bhatti every 6 months Allergic rhinitis 07/19/2011 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 Asthma with severity to be determined Carpal tunnel syndrome EDEMA dependent, ankles Generalized osteoarthritis ACEI/ARB contraindicated as of this encounter Resolved Problems Problem Noted Date Resolved Date DM (diabetes mellitus), type 2 ([facility]) 08/07/2015 06/25/2017 Nausea 09/05/2012 06/25/2017 Overview: ICD-10 update of inactive term HTN, GOAL BELOW 140/80 06/01/2012 6 Overview: Per HTN Protocol #27. Hypoxemia 10/08/2011 10/30/2015 Genetic Sleep Disorder Research Other*[id number] 07/25/2011 05/15/2016 Obesity, morbid (more than 1 00 lbs over ideal weight or BMI > 40) ([facility]) 01/09/2010 08/19/2017 Overview: Per [...] encounter Miscellaneous Notes * Telephone Encounter - Vani Pelletier LPN - 03/18/2018 10:29 AM EDT Pt calling states that she was in [facility] ED 03/15/18. Dx Lyme's, started on Doxy x 14 days Pt scheduled 03/31/18 at 1440. * Telephone Encounter - Chanda Kelley OSA - 03/18/2018 10:27 AM EDT Reason for patient's call: Er follow up- Lyme disease Caller was transferred to [facility] at the dedicated phone nurse line. in this encounter Plan of Treatment Upcoming Encounters Date Type Specialty Care Team Description 03/31/2018 Office Visit Internal Medicine Marcela Pinto MD [address] [place] [address] [phone] 04/02/2018 Office Visit Podiatry Chantel Moore DPM [address] [place] [address] 04/13/2018 Nutrition Services Gastroenterology Nita Enriquez RDN [address] [place] [address] 04/13/2018 Office Visit Gastroenterology Charles Coello MD [address] [place] [address] [phone] 05/29/2018 Imaging Radiology 07/23/2018 Office Visit Internal Medicine Marcela Pinto MD [address] [facility] [place] [address] [phone] Health Maintenance Due Date Last Done Comments [...]
--- OUTSIDE RECORDS SUMMARY | 2023-06-18 03:49 | External Medical Summary | Summary of Care ---
Author Name Unknown Organization [place] [address] Phone Care Team Providers Care Impregnation Operator Name Role Phone Marcela Pinto MD Primary Care Provider [phone] Reason for Referral * Evaluate & Treat - Unlimited Visits (Within 10 days (routine)) Status Reason Specialty Diagnoses / Procedures Referred By Contact Referred To Contact Pending Review Specialty Services Required Podiatry Diagnoses Type 2 diabetes mellitus with hemoglobin A1c goal of less than 7.5% ([facility]) Marcela Pinto MD [address] [place] [id number] Reason for Visit * Reason Comments HOSPITAL FOLLOW-UP Encounter Details Date Type Department Care Team Description 03/05/2018 Office Visit General Internal Medicine [facility] [address] [place] [address] Marcela Pinto MD [address] [place] [address] [phone] Lower GI bleed*;JAXSON (generalized anxiety disorder);Type 2 diabetes mellitus with hemoglobin A1c goal of less than 7.5% ([facility]);COPD, moderate ([facility]);Asthma with severity to be determined;Other iron deficiency anemia;Sleep apnea, obstructive;Nocturnal hypoxia;Hyperlipidemia with target LDL less than 100 Allergies Active Allergy Reactions Severity Noted Date Comments Valsartan 07/10/2010 Enalapril 05/21/2006 Escitalopram Oxalate Nausea/vomiting 10/11/2009 Nauseated Iodinated Diagnostic Agents Nausea/vomiting 05/2010 IV Contrast Lisinopril 05/21/2006 Metoprolol Tartrate 11/18/2006 Made pulse low [place] Oil-Black Currant-Vit E 07/10/2010 Verapamil 03/21/2004 Bupropion [...] EVERY DAY 90 Tab 2 7 Active glimepiride (AMARYL) 4 MG TabletIndications:T ype 2 diabetes mellitus with hemoglobin A1c goal of less than 7.5% ([facility]) TAKE 1 TABLET BY MOUTH IN THE MORNING AND 1/2 TABLET BY MOUTH IN THE EVENING 135 Tab 1 7 Active KLOR-CON M20 20 MEQ TBCRIndications:HTN , goal below 140/90 TAKE 1 TABLET BY MOUTH DAILY 90 Tab 1 7 Active Terazosin HCl 2 MG Capsule TAKE ONE CAPSULE BY MOUTH EVERY DAY 90 Cap 1 8 Active DilTIAZem HCl ER Coated Beads 360 MG [id number]:HTN , goal below 130/80 TAKE 1 CAPSULE [...] mouth daily. 30 Tab 5 8 Active atorvaSTATin (LIPITOR) 20 MG Tablet Take 20 mg by mouth daily. Take 20 mg by mouth daily. 5 7 03/05/20 18 Discontinued as of this encounter Active Problems Problem Noted Date Ischemic colitis ([facility]) 10/01/2017 Lower GI bleed 04/21/2017 Irritable bowel syndrome with constipati on 04/21/2017 Elevated plasma metanephrines 02/20/2017 Type 2 diabetes mellitus with hemoglobin A1c goal of less than 7.5% ([facility]) 02/12/2017 Hypercalcemia 02/12/2017 Controlled substance agreement [...] colon 07/25/2011 COPD, moderate ([facility]) 07/19/2011 Overview: Dr Bhatti every 6 months Allergic rhinitis 07/19/2011 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 Asthma with severity to be determined Carpal tunnel syndrome EDEMA dependent, ankles Generalized osteoarthritis ACEI/ARB contraindicated as of this encounter Resolved Problems Problem Noted Date Resolved Date DM (diabetes mellitus), type 2 ([facility]) 08/07/2015 06/25/2017 Nausea 09/05/2012 06/25/2017 Overview: ICD-10 update of inactive term HTN, GOAL BELOW 140/80 06/01/2012 6 Overview: Per HTN Protocol #27. Hypoxemia 10/08/2011 10/30/2015 Genetic Sleep Disorder Research Other*[id number] 07/25/2011 05/15/2016 Obesity, morbid (more than 1 00 lbs over ideal weight or BMI > 40) ([facility]) 01/09/2010 08/19/2017 Overview: Per Obesity Taxonomy [...] than 7.0% ([facility]) 08/10/2009 12/03/2012 Overview: Per Diabetes Taxonomy. ICD-10 update of inactive term Type 2 diabetes mellitus wit h hemoglobin A1c goal of less than 7.0% ([facility]) 08/10/2009 Overview: Per Diabetes Taxonomy. ICD-10 [...] Vital Sign Reading Time Taken Blood Pressure 134/70 03/05/2018 10:56 AM EDT Pulse 64 03/05/2018 10:56 AM EDT Temperature 36.4 C (97.6 F) 03/05/2018 1 0:56 AM EDT Respiratory Rate 18 03/05/2018 10:5 6 AM EDT Oxygen Saturation 93% 03/05/2018 10: 56 AM EDT Inhaled Oxygen Concentration - - Weight 108.4 kg (239 lb) 03/05/2018 10: 56 AM EDT Height 165.1 cm (5' 5") 03/05/2018 10:5 6 AM EDT Body Mass Index 39.77 03/05/2018 10:56 AM EDT in this encounter Progress Notes * Marcela Pinto MD - 03/05/2018 11:02 AM EDT Formatting of this note may be different from the original. HPI: Nina Harrington is a 77 year old female who presents with: Chief Complaint Patient presents with HOSPITAL FOLLOW-UP Pt is here for the hospital follow up. Chart reviewed from the hospital including admission note, Hand P, consult notes, labs, EKG, imaging and discharge note including discharge meds. Patient states she is feeling better since went back home except occasional rectal bleed small amount or bleed when wipes after BM. Pt was admitted to the hospital on 02/27/18 and was discharged on 03/01/18 . Admission Diagnosis : Gi Bleed, Diverticulosis, Polyps of Ascending colon. Pt has been followed up by senior case manager and specialists. Pt went to ER with blood in stool few episodes, lower abdominal pain and in ER had labs, CT Abd Pelvis and showed No Bowel obstruction, tiny imfraumbilical hernia, Diverticulosis, ? Chronic ovarian sigmoid fistula, non obstructing left renal calculus, stable left adrenal adenoma. Colonoscopy in the hospital showed 2 polyps 5mm each, in ascending colon, had it removed no active bleeding, non bleeding internal hemorrhoids. Pathology showed Tubular adenoma. The day of discharge her HB was 9.6 Discussed getting Barium enema in few weeks from now to confirm. Order will be placed. No nausea, vomitting, fever, chills. Pt has seen General surgery for recurrent diverticulitis and was told not a candidate for surgery. Pt has been seeing dr. Eagle. Will schedule f/u. States she gets very anxious as her daughter and son both are going through health issue. She worries a lot. Discussed not taking SSRI as it didn't help and also can increase The risk for bleeding. Agreeable for Buspar. Reassured patient. 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 COPD, moderate (HCC) J44.9 Allergic rhinitis J30.9 Diverticulitis of colon K57.32 Nocturnal hypoxia G47.34 Sleep apnea, obstructive G47.33 Incisional hernia K43.2 ACEI/ARB contraindicated [id number] HTN, goal below 140/90 I10 Hyperlipidemia with [...] mouth daily. 100 Tab 3 atorvaSTATin (LIPITOR) 20 MG Tablet Take 20 mg by mouth daily. Take 20 mg by mouth daily. 5 AZOPT 1 % OP SUSP INSTILL 1 DROP BY OPHTHALMIC ROUTE 2 TIMES EVERY DAY INTO BOTH EYES 4 COMBIVENT RESPIMAT 20-100 MCG/ACT Inhaler TAKE 1 [...] 1 CAPSULE EVERY DAY 90 Cap 1 furosemide (LASIX) 40 MG Tablet One [...] Contrast Lisinopril Metoprolol Tartrate Made pulse low [place] Oil-Black Currant-Vit E Verapamil Wellbutrin [Bupropion Hcl] Makes pt sick in the stomach Past Medical History: Diagnosis Date ACEI/ARB contraindicated Asthma Carpal tunnel syndrome DM type 2, goal: symptom mgmt (HCC) Generalized osteoarthritis HTN, goal below 140/90 Mixed dyslipidemia 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 Marital status: Spouse name: N/A Number of children: 6 Years of education: N/A 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 OBJECTIVE: BP 134/70 | Pulse 64 | Temp (Src) 97.6 (Tympanic) | Resp 18 | Ht 5' 5" (1.651m) | Wt 239 lbs (108.410kg) | BMI 39.77 kg/m | BSA 2.23 m | SaO2 93% PHYSICAL EXAM: HEENT: PERRLA, EOMI, anicteric sclera, no lymphadenopathy, neck supple CVS: RRR, no murmurs, rubs or gallops, s1 s 2normal. RESP: clear to auscultation, no wheezing or crackles ABD: soft, NT/ND EXT: no edema, cyanosis, peripheral pulses palpable bilaterally No large joint swelling, no redness, range of motion normal. Skin normal. Gait normal. Mood stable No focal weakness ASSESSMENT AND PLAN: K92.2 Lower gi bleed (primary encounter diagnosis) Resolved except occasional blood when wipes. Continue OTC iron pill once daily every other day. Continue hydration.' F41.1 Jaxson (generalized anxiety disorder) Plan: Medications: 1. Start Buspirone hcl 15 mg po tabs Sig:Take 1 tab by mouth 2 times a day. E11.9 Type 2 diabetes mellitus with hemoglobin a1c goal of less than 7.5% (hcc) On Amaryl. Diet discussed. J44.9 Copd, moderate (hcc) Stable on current inhalers. Sob with excertion - chronic. Uses oxygen at night 4 lit. J45.909 Asthma with severity to be determined Stable. D50.8 Other iron deficiency anemia Plan: Lab: 1. Cbc Future expected: 03/05/2018 Hyperlipidemia Increase the dose of lipitor to 40 mg po daily as risk for CAD has gone up. Marcela Pinto MD in this encounter Nursing Notes * Renetta Gu LPN - 03/05/2018 10:55 AM EDT Here for hospital follow up, continuing to have a small amount of rectal bleeding. Problems with some anxiety. in this encounter Plan of Treatment Upcoming Encounters Date Type Specialty Care Team Description 04/13/2018 Nutrition Services Gastroenterology Nita Enriquez, RDN [address] [facility] [place] [address] 05/29/2018 Imaging Radiology 07/23/2018 Office Visit Internal Medicine Marcela Pinto MD [address] [place] [address] [phone] Scheduled Tests Name Priority Associated Diagnoses Order S chedule CBC Routine Other iron deficiency anemia Expected: 03/05/2018 (Approximate), Expires: 03/05/2019 Scheduled Referrals Name Priority Associated Diagnoses Order S chedule PODIATRY REFERRAL OP Within 10 days (routine) Type 2 diabetes mellitus with hemoglobin A1c goal of less than 7.5% (HCC) Ordered: 03/05/2018 Health Maintenance Due Date Last [...] fileas of this encounter Visit Diagnoses Diagnosis Lower GI bleed - Primary Hemorrhage of gastrointestinal tract, unspecified JAXSON (generalized anxiety dis order) Generalized anxiety disorder Type 2 diabetes mellitus wit h hemoglobin A1c goal of less than 7.5% (HCC) COPD, moderate (HCC) Chronic airway obstruction, not elsewhere classified Asthma with severity to be d etermined Other iron deficiency anemia Sleep apnea, obstructive Obstructive sleep apnea (adult) (pediatric) Nocturnal hypoxia Hypoxemia Hyperlipidemia with target L DL less than 100 Other and unspecified hyperlipidemia in this encounter
--- OUTSIDE RECORDS SUMMARY | 2023-06-18 03:49 | External Medical Summary ---
Author Name Unknown Address [facility] [place] [address] Phone Organization K01:[facility] [address] [address] Laboratory Report Ordering Provider Test Date Status JOSE A JOHNSON 03/13/2018 11:53:00 Final Observation Date Value Abnormality Reference Status BUN 03/13/2018 22:00 13 6-20 Fin al Creatinine 03/13/2018 22:00 1.0 0.5-1.0 Fi nal Performing Location [facility] [address] [id number]
--- OUTSIDE RECORDS SUMMARY | 2023-06-18 03:49 | External Medical Summary | Summary of Care ---
Author Name Unknown Organization [place] [address] Phone Care Team Providers Care Master Merchandiser Name Role Phone Marcela Pinto MD Primary Care Provider Encounter Details Date Type Department Care Team Description 02/28/2018 Result Scan Gastroenterology, [facility] [address] [facility] [place] [address] Manju Carrillo MD [address] [facility] [place] [address] [phone] <No scans attached> Allergies Active Allergy Reactions Severity Noted Date Comments Valsartan 07/10/2010 Enalapril 05/21/2006 Escitalopram Oxalate Nausea/vomiting 10/11/2009 Nauseated Iodinated Diagnostic Agents Nausea/vomiting 05/2010 IV Contrast Lisinopril 05/21/2006 Metoprolol Tartrate 11/18/2006 Made pulse low [place] Oil-Black Currant-Vit E 07/10/2010 Verapamil 03/21/2004 Bupropion [...] for edema. 30 Tab 11 06/09/2017 Active atorvaSTATin (LIPITOR) 20 MG Tablet Take 20 mg by mouth daily. Take 20 mg by mouth daily. 5 06/18/2017 Active albuterol sulfate (PROVENTIL) (2.5 MG/3ML) 0.083% [...] DilTIAZem HCl ER Coated Beads 360 MG [id number]:HTN, goal below 130/80 TAKE 1 CAPSULE EVERY DAY 90 Cap 1 11/07/2017 Active omeprazole (PRILOSEC) 20 MG CPDRIndications:Isch emic colitis ([facility]) TAKE 1 CAPSULE TWICE DAILY 180 [...] EVERY DAY 90 Tab 1 02/25/2018 Active as of this encounter Active Problems Problem Noted Date Ischemic colitis (HCC) 10/01/2017 Lower GI bleed 04/21/2017 Irritable bowel syndrome with constipati on 04/21/2017 Elevated plasma metanephrines 02/20/2017 Type 2 diabetes mellitus with hemoglobin A1c goal of less than 7.5% (HCC) 02/12/2017 Hypercalcemia 02/12/2017 Controlled substance agreement signed [...] Hypoxemia 10/08/2011 10/30/2015 Genetic Sleep Disorder Research Other*[id number] 07/25/2011 05/15/2016 Obesity, morbid (more than 1 [...] Encounters Date Type Specialty Care Team Description 03/05/2018 Office Visit Internal Medicine Marcela Pinto MD [address] [place] [address] [phone] 04/13/2018 Nutrition Services Gastroenterology Nita Enriquez, AKIKO [address] [place] [id number] 05/29/2018 Imaging Radiology 07/23/2018 Office Visit Internal Medicine Marcela Pinto MD [address] [place] [address] [phone] Health Maintenance Due Date Last Done Comments [...] this encounter Results * PATHOLOGY SCANNED RESULT (02/28/2018) in this encounter
--- OUTSIDE RECORDS SUMMARY | 2023-06-18 03:49 | External Medical Summary | Summary of Care ---
Author Name Unknown Organization [place] [address] Phone Care Team Providers Care Car Scrubber Name Role Phone Marcela Pinto MD Primary Care Provider [phone] Reason for Referral * Evaluate & Treat - Unlimited Visits (Within 10 days (routine)) Status Reason Specialty Diagnoses / Procedures Referred By Contact Referred To Contact Pending Review Specialty Services Required Podiatry Diagnoses Type 2 diabetes mellitus with hemoglobin A1c goal of less than 7.5% ([facility]) Marcela Pinto MD [address] [place] [id number] Reason for Visit * Reason Comments HOSPITAL FOLLOW-UP Encounter Details Date Type Department Care Team Description 03/05/2018 Office Visit General Internal Medicine [facility] [address] [place] [address] Marcela Pinto MD [address] [place] [address] [phone] Lower GI bleed*;JAXSON (generalized anxiety disorder);Type 2 diabetes mellitus with hemoglobin A1c goal of less than 7.5% ([facility]);COPD, moderate ([facility]);Asthma with severity to be determined;Other iron deficiency anemia;Sleep apnea, obstructive;Nocturnal hypoxia;Hyperlipidemia with target LDL less than 100 Allergies Active Allergy Reactions Severity Noted Date Comments Valsartan 07/10/2010 Enalapril 05/21/2006 Escitalopram Oxalate Nausea/vomiting 10/11/2009 Nauseated Iodinated Diagnostic Agents Nausea/vomiting 05/2010 IV Contrast Lisinopril 05/21/2006 Metoprolol Tartrate 11/18/2006 Made pulse low [place] Oil-Black Currant-Vit E 07/10/2010 Verapamil 03/21/2004 Bupropion [...] of less than 7.5% ([facility]) TAKE 1 TABLET BY MOUTH IN THE [...] DilTIAZem HCl ER Coated Beads 360 MG [id number]:HTN , goal below 130/80 TAKE 1 CAPSULE [...] Active Problems Problem Noted Date Ischemic colitis ([facility]) 10/01/2017 Lower GI bleed 04/21/2017 Irritable bowel syndrome with constipati on 04/21/2017 Elevated plasma metanephrines 02/20/2017 Type 2 diabetes mellitus with hemoglobin A1c goal of less than 7.5% ([facility]) 02/12/2017 Hypercalcemia 02/12/2017 Controlled substance agreement [...] AHP Diverticulitis of colon 07/25/2011 COPD, moderate ([facility]) 07/19/2011 Overview: Dr Bhatti every 6 months Allergic rhinitis 07/19/2011 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 Asthma with severity to be determined Carpal tunnel syndrome EDEMA dependent, ankles Generalized osteoarthritis ACEI/ARB contraindicated as of this encounter Resolved Problems Problem Noted Date Resolved Date DM (diabetes mellitus), type 2 ([facility]) 08/07/2015 06/25/2017 Nausea 09/05/2012 06/25/2017 Overview: ICD-10 update of inactive term HTN, GOAL BELOW 140/80 06/01/2012 6 Overview: Per HTN Protocol #27. Hypoxemia 10/08/2011 10/30/2015 Genetic Sleep Disorder Research Other*[id number] 07/25/2011 05/15/2016 Obesity, morbid (more than 1 00 lbs over ideal weight or BMI > 40) ([facility]) 01/09/2010 08/19/2017 Overview: Per Obesity Taxonomy [...] of less than 7.0% ([facility]) 08/10/2009 12/03/2012 Overview: Per Diabetes Taxonomy. ICD-10 update of inactive term Type 2 diabetes mellitus wit h hemoglobin A1c goal of less than 7.0% ([facility]) 08/10/2009 Overview: Per Diabetes Taxonomy. ICD-10 update [...] colon. Pt has been followed up by pillowcase maker and specialists. 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 in this encounter Miscellaneous Notes * Addendum Note - Ida Medina PBT - 03/05/2018 11:37 AM EDT Addended by: IDA MEDINA on: 03/05/2018 11:37 AM Modules accepted: Orders in this encounter Plan of Treatment Upcoming Encounters Date Type Specialty Care Team Description 04/02/2018 Office Visit Podiatry Chantel Moore DPM [address] [place] [address] [place] [address] 04/13/2018 Nutrition Services Gastroenterology Nita Enriquez, AKIKO [address] [place] [address] [phone] 05/29/2018 Imaging Radiology 07/23/2018 Office Visit Internal Medicine Marcela Pinto MD [address] [facility] [address] [phone] Pending Results Name Priority Associated Diagnoses Date/Ti me CBC Routine Other iron deficiency anemia 03/05/2018 11:36 AM EDT Scheduled Tests Name Priority Associated Diagnoses Order [...]
--- OUTSIDE RECORDS SUMMARY | 2023-06-18 03:49 | External Medical Summary | Summary of Care ---
Author Name Unknown Organization [place] [address] Phone Care Team Providers Care Rugby Union Footballer Name Role Phone Marcela Pinto MD Primary Care Provider [phone] Encounter Details Date Type Department Care Team Description 02/27/2018 Scan Encounter Unspecified Department <No scans attached> [...] Disp. Refills Start Date End Date Status CLONIDINE HCL 0.1 MG PO TABSIndications:HTN, goal below 130/80 One pill by mouth as needed for bp over 170/90 10 0 02/01/2010 Active VITAMIN D 1000 UNITS PO TABS one [...] GAS Use 4 L/min(Oxygen) as directed. Active Potassium Chloride Annalisa ER 20 MEQ TBCRIndications:Esse ntial hypertension with goal blood pressure less than 140/90 One pill once daily as needed with lasix. 60 Tab 11 06/30/2016 Active polyethylene glycol 3350 (MIRALAX) 255 gram powder Take 17 g by mouth 2 times a day. One cap full in juice, to effect 1 stool per day. . 2 Bottle 3 10/01/2016 Active diphenhydramine (BENADRYL) 25 MG Tablet Take by mouth once. Patient Allergic to IV Contrast (Radiologist Protocol) - Take Two tablets 1 hour before scan time with Prednisone. 2 Tab 0 Active Glucose Blood (YEIMY CONTOUR TEST) STRPIndications:Type [...] TABS one pill each day 04/21/2017 Active SENNA PLUS 8.6-50 MG per tablet TAKE 1 TABLET TWICE A DAY FOR CONSTIPATION 50 Tab 0 05/23/2017 Active furosemide (LASIX) 40 MG TabletIndications:Es sential hypertension with goal blood pressure less than 130/80 One pill daily as needed for edema. 30 Tab 11 06/09/2017 Active atorvaSTATin (LIPITOR) 20 MG Tablet Take 20 mg by mouth daily. Take 20 mg by mouth daily. 5 06/18/2017 Active baclofen (LIORESAL) 10 MG TabletIndications:Mi d back pain on left side Take 1 Tab by mouth 2 times a day. 20 Tab 0 08/19/2017 Active albuterol sulfate (PROVENTIL) (2.5 MG/3ML) 0.083% [...] DilTIAZem HCl ER Coated Beads 360 MG [id number]:HTN, goal below 130/80 TAKE 1 CAPSULE EVERY [...] 4 TIMES A DAY 1 Inhaler 5 01/09/2018 Active COMBIVENT RESPIMAT 20-100 MCG/ACT InhalerIndications:A sthma [...] than 7.5% ([facility]) 02/12/2017 Hypercalcemia 02/12/2017 Controlled substance [...] of colon 07/25/2011 COPD, moderate ([facility]) 07/19/2011 Overview: Dr Bhatti every 6 months Allergic rhinitis 07/19/2011 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 Asthma with severity to be determined Carpal tunnel syndrome EDEMA dependent, ankles Generalized osteoarthritis ACEI/ARB contraindicated as of this encounter Resolved Problems Problem Noted Date Resolved Date DM (diabetes mellitus), type 2 ([facility]) 08/07/2015 06/25/2017 Nausea 09/05/2012 06/25/2017 Overview: ICD-10 update of inactive term HTN, GOAL BELOW 140/80 06/01/2012 6 Overview: Per HTN Protocol #27. Hypoxemia 10/08/2011 10/30/2015 Genetic Sleep Disorder Research Other*[id number] 07/25/2011 05/15/2016 Obesity, morbid (more than 1 00 lbs over ideal weight or BMI > 40) ([facility]) 01/09/2010 08/19/2017 Overview: Per Obesity [...] than 7.0% ([facility]) 08/10/2009 12/03/2012 Overview: Per Diabetes Taxonomy. ICD-10 update of inactive term Type 2 diabetes mellitus wit h hemoglobin A1c goal of less than 7.0% ([facility]) 08/10/2009 Overview: Per Diabetes Taxonomy. [...] Medicine Marcela Pinto MD [address] [place] [address] [phone] 04/13/2018 Nutrition Services Gastroenterology Nita Enriquez, RDN [address] [place] [address] 05/29/2018 Imaging Radiology 07/23/2018 Office Visit Internal Medicine Marcela Pinto MD [address] [place], [place] [address] [phone] Health Maintenance Due Date Last Done Comments [...]
--- OUTSIDE RECORDS SUMMARY | 2023-06-18 03:49 | External Medical Summary | Summary of Care ---
Author Name Unknown Organization [place] [address] Phone Care Team Providers Care Photograph Developer Name Role Phone Marcela Pinto MD Primary Care Provider [phone] Encounter Details Date Type Department Care Team Description 03/17/2018 Orders Only General Internal Medicine [facility] [address] [place] [address] Marcela Pinto MD 200 [place] [address] [phone] Allergies Active Allergy Reactions Severity Noted Date Comments Valsartan 07/10/2010 Enalapril 05/21/2006 Escitalopram Oxalate Nausea/vomiting 10/11/2009 Nauseated Iodinated Diagnostic Agents Nausea/vomiting 05/2010 IV Contrast Lisinopril 05/21/2006 Metoprolol Tartrate 11/18/2006 Made pulse low [place] Oil-Black Currant-Vit E 07/10/2010 Verapamil 03/21/2004 Bupropion [...] 7.5% ([facility]) TAKE 1 TABLET BY MOUTH IN THE [...] DilTIAZem HCl ER Coated Beads 360 MG OO61Quwcefozrov:HTN, goal below 130/80 TAKE 1 CAPSULE EVERY [...] Hypoxemia 10/08/2011 10/30/2015 Genetic Sleep Disorder Research Other*[id number] 07/25/2011 05/15/2016 Obesity, morbid (more than 1 [...] [address] [place] [address] [phone] 04/13/2018 Office Visit Gastroenterology Charles Coello MD [address] [facility] [place] [address] [phone] 05/29/2018 Imaging Radiology 07/23/2018 Office Visit Internal Medicine Marcela Pinto MD [address] [place], [place] [address] [phone] Pending Results Name Priority Associated Diagnoses Date/Ti me XR CHEST 2 VIEWS Routine 03/15/2018 12:00 AM EDT Health Maintenance [...]
--- OUTSIDE RECORDS SUMMARY | 2023-06-18 03:49 | External Medical Summary | Summary of Care ---
Author Name Unknown Organization [place] [address] Phone Care Team Providers Care Toxics Program Officer Name Role Phone Marcela Pinto MD Primary Care Provider [phone] Encounter Details Date Type Department Care Team Description 03/15/2018 Result Scan Unspecified Department <No scans attached> Allergies Active Allergy Reactions Severity Noted Date Comments Valsartan 07/10/2010 Enalapril 05/21/2006 Escitalopram Oxalate Nausea/vomiting 10/11/2009 Nauseated Iodinated Diagnostic Agents Nausea/vomiting 05/2010 IV Contrast Lisinopril 05/21/2006 Metoprolol Tartrate 11/18/2006 Made pulse low [place] Oil-Black Currant-Vit E 07/10/2010 Verapamil 03/21/2004 [...] DilTIAZem HCl ER Coated Beads 360 MG IC98Jailkuqpvhq:HTN, goal below 130/80 TAKE 1 CAPSULE EVERY [...] goal of less than 7.5% ([facility]) 02/12/2017 Hypercalcemia 02/12/2017 Controlled substance [...] of colon 07/25/2011 COPD, moderate ([facility]) 07/19/2011 Overview: Dr Bhatti every 6 months Allergic rhinitis 07/19/2011 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 Asthma with severity to be determined Carpal tunnel syndrome EDEMA dependent, ankles Generalized osteoarthritis ACEI/ARB contraindicated as of this encounter Resolved Problems Problem Noted Date Resolved Date DM (diabetes mellitus), type 2 ([facility]) 08/07/2015 06/25/2017 Nausea 09/05/2012 06/25/2017 Overview: ICD-10 update of inactive term HTN, GOAL BELOW 140/80 06/01/2012 6 Overview: Per HTN Protocol #27. Hypoxemia 10/08/2011 10/30/2015 Genetic Sleep Disorder Research Other*[id number] 07/25/2011 05/15/2016 Obesity, morbid (more than 1 [...] than 7.0% ([facility]) 08/10/2009 12/03/2012 Overview: Per Diabetes Taxonomy. ICD-10 update of inactive term Type 2 diabetes mellitus wit h hemoglobin A1c goal of less than 7.0% ([facility]) 08/10/2009 Overview: Per Diabetes Taxonomy. [...] Office Visit Gastroenterology Charles Coello MD 132 [facility] [place] [address] 05/29/2018 Imaging Radiology 07/23/2018 Office Visit Internal Medicine Marcela Pinto MD 200 [place] [address] [phone] Health Maintenance Due Date Last Done Comments [...] on fileas of this encounter Results * EKG SCANNED RESULT (03/15/2018) in this encounter
--- OUTSIDE RECORDS SUMMARY | 2023-06-18 03:49 | External Medical Summary | Summary of Care ---
Author Name Unknown Organization [place] [address] Phone Care Team Providers Care Apprentice Instrument Technician Name Role Phone Marcela Pinto MD Primary Care Provider [phone] Encounter Details Date Type Department Care Team Description 03/15/2018 Scan Encounter Unspecified Department <No scans attached> Allergies Active Allergy Reactions Severity Noted Date Comments Valsartan 07/10/2010 Enalapril 05/21/2006 Escitalopram Oxalate Nausea/vomiting 10/11/2009 Nauseated Iodinated Diagnostic Agents Nausea/vomiting 05/2010 IV Contrast Lisinopril 05/21/2006 Metoprolol Tartrate 11/18/2006 Made pulse low [place] Oil-Black Currant-Vit E 07/10/2010 Verapamil 03/21/2004 Bupropion [...] DilTIAZem HCl ER Coated Beads 360 MG HQ99Hpsveuzuwbb:HTN, goal below 130/80 TAKE 1 CAPSULE EVERY [...] be determined,COPD, moderate ([facility]) TAKE 1 PUFF BY MOUTH 4 [...] Hypoxemia 10/08/2011 10/30/2015 Genetic Sleep Disorder Research Other*[id number] 07/25/2011 05/15/2016 Obesity, morbid (more than 1 [...] Office Visit Gastroenterology Charles Coello MD 132 [facility] [place] [address] 05/29/2018 Imaging Radiology 07/23/2018 Office Visit Internal Medicine Marcela Pinto MD [address] [place] [address] [phone] Health Maintenance Due Date Last Done Comments [...]
--- OUTSIDE RECORDS SUMMARY | 2023-06-18 03:49 | External Medical Summary ---
Author Name Unknown Address [address] [facility] [place] [address] Phone Organization K01:[facility] [address] [facility] [address] Laboratory Report Ordering Provider Test Date Status JOSE A JOHNSON 03/13/2018 11:53:00 Final Observation Date Value Abnormality Reference Status WBC, Total 03/13/2018 21:40 9.76 4.00-10.80 F inal RBC 03/13/2018 21:40 3.80 Below low normal 3.85-5 .15 Final Hemoglobin 03/13/2018 21:40 10.6 Below low normal 12.0- 15.3 Final HCT 03/13/2018 21:40 34.0 Below low normal 36.0-4 5.2 Final MCV 03/13/2018 21:40 89.5 81.5-97.5 Fin al MCH 03/13/2018 21:40 27.9 27.0-34.0 Fin al MCHC 03/13/2018 21:40 31.2 Below low normal 32.0-3 6.0 Final RDW 03/13/2018 21:40 14.1 11.5-15.5 Fin al Platelets 03/13/2018 21:40 280 140-400 Fin al MPV 03/13/2018 21:40 10.4 6.6-11.1 Fin al Segs 03/13/2018 21:40 58.4 40-75 Fin al Lymphs % 03/13/2018 21:40 23.1 18-42 Fin al Monos 03/13/2018 21:40 16.4 Above high normal 1-11 Final Eosinophils 03/13/2018 21:40 1.4 0-6 F inal Basos 03/13/2018 21:40 0.3 0-2 Fin al Immature Granulocyte, Percent 03/13/2018 21:40 0.4 0-2 Final Absolute Segs 03/13/2018 21:40 5.70 1.8-7.7 Final Lymphs, absolute 03/13/2018 21:40 2.25 1.0-4. 8 Final Monos, Abs 03/13/2018 21:40 1.60 Above high normal 0.0- 1.1 Final Eos, Abs 03/13/2018 21:40 0.14 0.0-0.7 Fin vijaya Thomas, Abs 03/13/2018 21:40 0.03 0.0-0.2 Fi nal Immature Granulocytes, Number 03/13/2018 21:40 0.04 0.0-0.2 Final Performing Location [facility] [address] [facility] [address]
--- OUTSIDE RECORDS SUMMARY | 2023-06-18 03:49 | External Medical Summary | Summary of Care ---
Author Name Unknown Organization [place] [address] Phone Care Team Providers Care Bobbin Trucker Name Role Phone Marcela Pinto MD Primary Care Provider [phone] Reason for Visit * Reason Comments ADVICE case management Encounter Details Date Type Department Care Team Description 03/02/2018 [employer] Telephone Ancillary [facility] [address] [place] [address] Sigrid Montano RN 200 [place] [address] [phone] ADVICE; case management Allergies Active Allergy Reactions Severity Noted Date Comments Valsartan 07/10/2010 Enalapril 05/21/2006 Escitalopram Oxalate Nausea/vomiting 10/11/2009 Nauseated Iodinated Diagnostic Agents Nausea/vomiting 05/2010 IV Contrast Lisinopril 05/21/2006 Metoprolol Tartrate 11/18/2006 Made pulse low [place] Oil-Black Currant-Vit E 07/10/2010 Verapamil 03/21/2004 Bupropion [...] of less than 7.5% ([facility]) TAKE 1 TABLET BY MOUTH IN [...] DilTIAZem HCl ER Coated Beads [address]41Xtecqemaxne:HTN, goal below 130/80 TAKE 1 CAPSULE EVERY DAY 90 Cap 1 11/07/2017 Active omeprazole (PRILOSEC) 20 MG CPDRIndications:Isch emic colitis ([facility]) TAKE 1 CAPSULE TWICE DAILY 180 [...] AHP Diverticulitis of colon 07/25/2011 COPD, moderate ([facility]) 07/19/2011 Overview: Dr Bhatti every 6 months Allergic rhinitis 07/19/2011 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 Asthma with severity to be determined Carpal tunnel syndrome EDEMA dependent, ankles Generalized osteoarthritis ACEI/ARB contraindicated as of this encounter Resolved Problems Problem Noted Date Resolved Date DM (diabetes mellitus), type 2 ([facility]) 08/07/2015 06/25/2017 Nausea 09/05/2012 06/25/2017 Overview: ICD-10 update of inactive term HTN, GOAL BELOW 140/80 06/01/2012 6 Overview: Per HTN Protocol #27. Hypoxemia 10/08/2011 10/30/2015 Genetic Sleep Disorder Research Other*[id number] 07/25/2011 05/15/2016 Obesity, morbid (more than 1 00 lbs over ideal weight or BMI > 40) ([facility]) 01/09/2010 08/19/2017 Overview: Per Obesity Taxonomy [...] of less than 7.0% ([facility]) 08/10/2009 12/03/2012 Overview: Per Diabetes Taxonomy. [...] Miscellaneous Notes * Telephone Encounter - Radha Vargas LPN - 03/04/2018 4:43 PM EDT Patient is aware and verbalized understanding. * Telephone Encounter - Marcela Pinto MD - 03/03/2018 5:21 PM EDT Noted. Can take Miralax along with Senna. Hold Aspirin until we see her. Thanks. * Telephone Encounter - Sigrid Montano RN - 03/02/2018 2:46 PM EDT 02/27/2018 through 03/01/2018--[facility], dc to home, no services dc dx GI bleed, diverticulosis, polyps of ascending colon reports hx of SBO in 11/2017 requiring surgery at [facility] PROCEDURES: colonoscopy with polypectomy NO NEW/CHANGED/STOPPED MEDS Initial post discharge follow up call to patient 1) she reports constipation, last BM inpatient day of discharge -- can she add Senna and then miralax if no results? Passing gas, does not yet feel uncomfortable, some cramping on Right side 2) she still has some blood toilet paper (she is wiping to check if still bleeding). She states thehospital staff was aware of this. No BM yet at home None ever on her underwear 3) One of the GI doctors in the hospital told her to hold her aspirin Not on dc paperwork Would you like her to not take it until she sees you on ? Please advise Thank you. in this encounter Plan of Treatment Upcoming Encounters Date Type Specialty Care Team Description 03/05/2018 Office Visit Internal Medicine Marcela Pinto MD 200 [facility] [place] [address] [phone] 04/13/2018 Nutrition Services Gastroenterology Nita Enriquez, IWONAN [address] [place] [address] [phone] 05/29/2018 Imaging Radiology 07/23/2018 Office Visit Internal Medicine Marcela Pinto MD 200 [facility] [place] [address] [phone] Health Maintenance Due Date Last Done Comments [...]
--- OUTSIDE RECORDS SUMMARY | 2023-06-18 03:49 | External Medical Summary | Summary of Care ---
Author Name Unknown Organization [place] [address] Phone Care Team Providers Care Service Person Name Role Phone Marcela Pinto MD Primary Care Provider Encounter Details Date Type Department Care Team Description 02/28/2018 Result Scan Gastroenterology, [facility] [address] [facility] [place] [address] Manju Carrillo MD 132 [facility] [place] [address] [phone] <No scans attached> Allergies Active Allergy Reactions Severity Noted Date Comments Valsartan 07/10/2010 Enalapril 05/21/2006 Escitalopram Oxalate Nausea/vomiting 10/11/2009 Nauseated Iodinated Diagnostic Agents Nausea/vomiting 05/2010 IV Contrast Lisinopril 05/21/2006 Metoprolol Tartrate 11/18/2006 Made pulse low [place] Oil-Black Currant-Vit E 07/10/2010 Verapamil 03/21/2004 [...] [facility]) USE TO TEST BLOOD SUGAR 4 TIMES [...] of less than 7.5% ([facility]) TAKE 1 TABLET BY MOUTH IN THE [...] DilTIAZem HCl ER Coated Beads 360 MG SR17Pyakjxykvue:HTN, goal below 130/80 TAKE 1 CAPSULE EVERY DAY 90 Cap 1 11/07/2017 Active omeprazole (PRILOSEC) 20 MG CPDRIndications:Isch emic colitis ([facility]) TAKE 1 CAPSULE TWICE DAILY 180 Cap [...] of colon 07/25/2011 COPD, moderate ([facility]) 07/19/2011 Overview: Dr Bhatti every 6 months Allergic rhinitis 07/19/2011 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 Asthma with severity to be determined Carpal tunnel syndrome EDEMA dependent, ankles Generalized osteoarthritis ACEI/ARB contraindicated as of this encounter Resolved Problems Problem Noted Date Resolved Date DM (diabetes mellitus), type 2 ([facility]) 08/07/2015 06/25/2017 Nausea 09/05/2012 06/25/2017 Overview: ICD-10 update of inactive term HTN, GOAL BELOW 140/80 06/01/2012 6 Overview: Per HTN Protocol #27. Hypoxemia 10/08/2011 10/30/2015 Genetic Sleep Disorder Research Other*[id number] 07/25/2011 05/15/2016 Obesity, morbid (more than 1 00 lbs over ideal weight or BMI > 40) ([facility]) 01/09/2010 08/19/2017 Overview: Per Obesity Taxonomy HTN, [...] of less than 7.0% ([facility]) 08/10/2009 12/03/2012 Overview: Per Diabetes Taxonomy. ICD-10 [...] Medicine Marcela Pinto MD [address] [place] [address] [phone] 04/13/2018 Nutrition Services Gastroenterology Nita Enriquez, AKIKO [address] [place] [id number] 05/29/2018 Imaging Radiology 07/23/2018 Office Visit Internal Medicine Marcela Pinto MD [address] [place] [address] [phone] Health Maintenance Due Date Last Done Comments [...]
--- OUTSIDE RECORDS SUMMARY | 2023-06-18 03:49 | External Medical Summary ---
Author Name Unknown Address [address] [place] [address] Phone Organization K09:[facility] [address] [place] [address] Laboratory Report Ordering Provider Test Date Status JOSE A JOHNSON 03/05/2018 11:36:00 Final Observation Date Value Abnormality Reference Status WBC, Total 03/05/2018 11:46 11.58 Above high normal 4.00 -10.80 Final RBC 03/05/2018 11:46 3.61 Below low normal 3.85-5 .15 Final Hemoglobin 03/05/2018 11:46 10.5 Below low normal 12.0- 15.3 Final HCT 03/05/2018 11:46 32.7 Below low normal 36.0-4 5.2 Final MCV 03/05/2018 11:46 90.6 81.5-97.5 Fin al MCH 03/05/2018 11:46 29.1 27.0-34.0 Fin al MCHC 03/05/2018 11:46 32.1 32.0-36.0 Fin al RDW 03/05/2018 11:46 14.4 11.5-15.5 Fin al Platelets 03/05/2018 11:46 375 140-400 Fin al MPV 03/05/2018 11:46 9.1 6.6-11.1 Fin al Performing Location [facility] [address] [place] [address]
--- OUTSIDE RECORDS SUMMARY | 2023-06-18 03:49 | External Medical Summary | Summary of Care ---
Author Name Unknown Organization [place] [address] Phone Care Team Providers Care Steersman Name Role Phone Marcela Pinto MD Primary Care Provider Encounter Details Date Type Department Care Team Description 02/28/2018 Orders Only Gastroenterology, [facility] [address] [place] [address] Manju Carrillo MD 132 [facility] [place] [address] [phone] Allergies Active Allergy Reactions Severity Noted Date Comments Valsartan 07/10/2010 Enalapril 05/21/2006 Escitalopram Oxalate Nausea/vomiting 10/11/2009 Nauseated Iodinated Diagnostic Agents Nausea/vomiting 05/2010 IV Contrast Lisinopril 05/21/2006 Metoprolol Tartrate 11/18/2006 Made pulse low [place] Oil-Black Currant-Vit E 07/10/2010 Verapamil 03/21/2004 Bupropion [...] less than 7.5% ([facility]) TAKE 1 TABLET BY MOUTH [...] DilTIAZem HCl ER Coated Beads 360 MG BH51Ukgqevpcnci:HTN, goal below 130/80 TAKE 1 CAPSULE EVERY [...] sthma with severity to be determined,COPD, moderate ([facility] [...] Hypoxemia 10/08/2011 10/30/2015 Genetic Sleep Disorder Research Other*[id number] 07/25/2011 05/15/2016 Obesity, morbid (more than 1 [...] Description 04/13/2018 Nutrition Services Gastroenterology Nita Enriquez, AKIKO [address] [place] [id number] 05/29/2018 Imaging Radiology 07/23/2018 Office Visit Internal Medicine Marcela Pinto MD 200 [place] [address] Health Maintenance Due Date Last [...] history exists COLONOSCOPY-EVERY 3 YRS AGES 18-100 06/05/2020 06/05/2017, 05/29/2016, 05/02/2014, Additional history exists PNEUMOCOCCAL ADULT 65 YRS AND OVER Completed 2014, 05/21/2006 Influenza Vaccine (FLU shot) Completed , 08/15/2016, 07/14/2015, Additional history exists as of this encounter Implants Not on fileas of this encounter Results * COLONOSCOPY (02/28/2018) in this encounter
--- OUTSIDE RECORDS SUMMARY | 2023-06-18 03:49 | External Medical Summary | Summary of Care ---
Author Name Unknown Organization [place] [address] Phone Care Team Providers Care Helmet Hat Sweatband Puncher Name Role Phone Marcela Pinto MD Primary Care Provider [phone] Reason for Visit * Reason Comments case management Encounter Details Date Type Department Care Team Description 03/02/2018 Controller Mechanic Ancillary [facility] 200 [place] [address] Sigrid Montano RN 200 [place] [address] [phone] Hospital discharge follow-up* Allergies Active Allergy Reactions Severity Noted Date Comments Valsartan 07/10/2010 Enalapril 05/21/2006 Escitalopram Oxalate Nausea/vomiting 10/11/2009 Nauseated Iodinated Diagnostic Agents Nausea/vomiting 05/2010 IV Contrast Lisinopril 05/21/2006 Metoprolol Tartrate 11/18/2006 Made pulse low [place] Oil-Black Currant-Vit E 07/10/2010 Verapamil 03/21/2004 Bupropion [...] [facility]) USE TO TEST BLOOD SUGAR 4 [...] for edema. 30 Tab 11 7 Active atorvaSTATin (LIPITOR) 20 MG Tablet Take 20 mg by mouth daily. Take 20 mg by mouth daily. 5 7 Active albuterol sulfate (PROVENTIL) (2.5 MG/3ML) [...] DilTIAZem HCl ER Coated Beads 360 MG TX26Rakmvdgctoi:HTN , goal below 130/80 TAKE 1 CAPSULE [...] EVERY DAY 90 Tab 1 8 Active CLONIDINE HCL 0.1 MG PO TABSIndications:HTN , goal below 130/80 One pill by mouth as needed for bp over 170/90 10 0 0 03/02/20 18 Discontinued Potassium Chloride Annalisa ER 20 MEQ TBCRIndications:Ess ential hypertension with goal blood pressure less than 140/90 One pill once daily as needed with lasix. 60 Tab 11 6 03/02/20 18 Discontinued diphenhydramine (BENADRYL) 25 MG Tablet Take by mouth once. Patient Allergic to IV Contrast (Radiologist Protocol) - Take Two tablets 1 hour before scan time with Prednisone. 2 Tab 0 03/02/20 18 Discontinued SENNA PLUS 8.6-50 MG per tablet TAKE 1 TABLET TWICE A DAY FOR CONSTIPATION 50 Tab 0 7 03/02/20 18 Discontinued baclofen (LIORESAL) 10 MG TabletIndications:M id back pain on left side Take 1 Tab by mouth 2 times a day. 20 Tab 0 7 03/02/20 18 Discontinued COMBIVENT RESPIMAT 20-100 MCG/ACT InhalerIndications: Asthma with severity to be determined,COPD, moderate ([facility]) TAKE 1 PUFF BY MOUTH 4 TIMES A DAY 1 Inhaler 5 8 03/02/20 18 Discontinued as of this encounter Active [...] Resolved Date DM (diabetes mellitus), type 2 ([facility]) 08/07/2015 06/25/2017 Nausea 09/05/2012 06/25/2017 Overview: ICD-10 update of inactive term HTN, GOAL BELOW 140/80 06/01/2012 6 Overview: Per HTN Protocol #27. Hypoxemia 10/08/2011 10/30/2015 Genetic Sleep Disorder Research Other*[id number] 07/25/2011 05/15/2016 Obesity, morbid (more than 1 00 lbs over ideal weight or BMI > 40) ([facility]) 01/09/2010 08/19/2017 Overview: Per Obesity Taxonomy HTN, [...] less than 7.0% ([facility]) 08/10/2009 12/03/2012 Overview: Per Diabetes Taxonomy. ICD-10 update of inactive term Type 2 diabetes mellitus wit h hemoglobin A1c goal of less than 7.0% ([facility]) 08/10/2009 Overview: Per Diabetes Taxonomy. ICD-10 update [...] Progress Notes * Sigrid Montano RN - 03/02/2018 2:32 PM EDT Case Management Assessment 02/27/2018 through 03/01/2018--[facility], dc to home, no services dc dx GI bleed, diverticulosis, polyps of ascending colon reports hx of SBO in 11/2017 requiring surgery at [facility] PROCEDURES: colonoscopy with polypectomy NO NEW/CHANGED/STOPPED MEDS PENDING: colon polyp pathology, outpatient barium enema 0 ER / 2 adm incl this one previous 12 mo PMH: asthma, COPD moderate, DM2 (6.2), JORDAN, HTN, IBS, ischemic colitis, diverticulosis HM asthma action plan Is this call for a hospital, halfway or rehab facility discharge to home? Yes [facility] posthospital discharge assessment S: Reports: 1) she reports constipation, last BM inpatient [...] hold her aspirin Not on dc paperwork Weight gain: Denies Increased edema: denies Chest pain denies Increased shortness of breath: denies Chills / Sweats / Fever: denies chills/sweats and denies fever Fall: denies Appetite: denies nausea, vomiting, burning, decreased appetite Bowel: constipation Bladder: denies problems Chronic Pain: denies Does Patient have Type 2 DM ? Yes. Does this patient take sulfonylureas and/or basal insulin? Yes. 1. Do you know what the symptoms of hypoglycemia are? yes 2. How often can you tell by your symptoms if your blood sugar is low? Always 3. In a typical week, how many times will your blood sugar go below 70 mg/dL? "hardly ever" O: Phone visit for [facility] post hospital discharge assessment. Medications: reviewed Epic, takes all medications as prescribed. and denies side effects A: Patient Centered Prioritized Goals: 1. Patient will resolve constipation and have regular, normal bowel movements 2. Patient will show resolution of rectal bleeding 3. Patient will keep all follow up appointments. Identified Barriers: lives alone and Older than 70 years P: Controller Mechanic Interventions: Explained/reinforced role of wrapper caser. Encouraged to call with any issues or concerns. Gave direct phone number and contact information. --Constipation: Increase activity Drink plenty of fluids Eat more fiber, fresh fruits and vegetables Consider Miralax daily Avoid harsh laxatives Call with any abdominal pain, cramping, fever or chills GI BLEED: Monitor symptoms of dizziness, lightheadedness, shortness of breath, chest discomfort, and fatigue. Change position slowly with symptoms of dizziness, lightheadedness and fatigue. Monitor blood pressure at home. Monitor stool for odor and change in color. Request physician to monitor hemoglobin. Take prescribed medication as ordered (proton pump inhibitor, octreotide). . PCP Notified of enrollment in CM/HM program: No SNP Member? No Re-evaluation of plan of care and progress towards goals achievement: Plan to call patient in one week or as needed to reassess and update plan of care, instructed to call Controller Mechanic or Primary Care Provider with change in symptoms or as needed before next follow-up,verbalizes understanding and agrees with plan. Sigrid Montano RN Outpatient Controller Mechanic in this encounter Plan of Treatment Upcoming Encounters Date Type Specialty Care Team Description 03/05/2018 Office Visit Internal Medicine Marcela Pinto MD 200 [facility] [place] [address] [phone] 04/13/2018 Nutrition Services Gastroenterology Nita Enriquez, AKIKO [address] [place], [place] [address] [address] 05/29/2018 Imaging Radiology 07/23/2018 Office Visit Internal Medicine Marcela Pinto MD 200 [facility] [place] [address] [phone] Health Maintenance Due Date Last Done Comments [...]
--- OUTSIDE RECORDS SUMMARY | 2023-06-18 03:50 | External Medical Summary ---
Author Name Unknown Address [address] [place] [address] Phone Organization K01:[facility] [address] [place] [id number] Laboratory Report Ordering Provider Test Date Status ALIX BARFIELD 01/14/2018 12:03:00 Final Observation Date Value Abnormality Reference Status HbA1C 01/14/2018 22:38 6.2 4.0-6.4 Fin al Performing Location [facility] [address] [facility] [address]
--- OUTSIDE RECORDS SUMMARY | 2023-06-18 03:50 | External Medical Summary | Summary of Care ---
Author Name Unknown Organization [place] [address] Phone Care Team Providers Care Boat Mechanic Name Role Phone Alex Pinto MD Primary Care Provider Reason for Visit * Reason Comments MEDICATION REFILL Encounter Details Date Type Department Care Team Description 02/19/2018 Refill General Internal Medicine [facility] [address] [place] [address] Alex Pinot MD [address] [place] [address] [phone] GENERAL OSTEOARTHROSIS Allergies Active Allergy Reactions Severity Noted Date Comments Valsartan 07/10/2010 Enalapril 05/21/2006 Escitalopram Oxalate Nausea/vomiting 10/11/2009 Nauseated Iodinated Diagnostic Agents Nausea/vomiting 05/2010 IV Contrast Lisinopril 05/21/2006 Metoprolol Tartrate 11/18/2006 Made pulse low [place] [...] [facility]) USE TO TEST BLOOD SUGAR 4 TIMES [...] J45.909, J44.9 225 mL 1 08/27/2017 Active zafirlukast (ACCOLATE) 20 MG TabletIndications:As thma with severity to be determined TAKE 1 TABLET EVERY DAY 90 Tab 1 09/03/2017 Active dicyclomine (BENTYL) 20 MG TabletIndications:Ch ronic constipation TAKE 1 TABLET BY MOUTH EVERY DAY 90 Tab 2 09/16/2017 Active glimepiride (AMARYL) 4 MG TabletIndications:Ty pe 2 diabetes mellitus with hemoglobin A1c goal of less than 7.5% ([facility]) TAKE 1 TABLET BY MOUTH IN THE [...] DilTIAZem HCl ER Coated Beads 360 MG DL96Xzbqavxlfnz:HTN, goal below 130/80 TAKE 1 CAPSULE EVERY [...] Pain, Breakthrough. 120 Tab 0 02/20/2018 Active as of this encounter Active Problems Problem Noted Date Ischemic colitis ([facility]) 10/01/2017 Lower GI bleed 04/21/2017 Irritable bowel syndrome with constipati on 04/21/2017 Elevated plasma metanephrines 02/20/2017 Type 2 diabetes mellitus with hemoglobin A1c goal of less than 7.5% ([facility]) 02/12/2017 Hypercalcemia 02/12/2017 Controlled substance agreement signed [...] mellitus), type 2 ([facility]) 08/07/2015 06/25/2017 Nausea 09/05/2012 06/25/2017 Overview: ICD-10 update of inactive term HTN, GOAL BELOW 140/80 06/01/2012 6 Overview: Per HTN Protocol #27. Hypoxemia 10/08/2011 10/30/2015 Genetic Sleep Disorder Research Other*[id number] 07/25/2011 05/15/2016 Obesity, morbid (more than 1 00 lbs over ideal weight or BMI > 40) ([facility]) 01/09/2010 08/19/2017 Overview: Per Obesity Taxonomy HTN, [...] ([facility]) 08/10/2009 12/03/2012 Overview: Per Diabetes Taxonomy. ICD-10 update of inactive term Type 2 diabetes mellitus wit h hemoglobin A1c goal of less than 7.0% ([facility]) 08/10/2009 Overview: Per Diabetes Taxonomy. ICD-10 update [...] Telephone Encounter - Alex Pinto MD - 02/20/2018 10:22 AM EDT Signed Prescriptions: Disp RefillsHYDROcodone-acetaminophen 5-325 mg per tab*120 Rog8Skv: Take 1 Tab by mouth every 6 hours as needed for Pain,Breakthrough. Authorizing Provider: ALEX PINTO * Telephone Encounter - Alex Pinto MD - 02/20/2018 10:21 AM EDT Signed. * Telephone Encounter - Eliezer Bernard, [facility] - 02/19/2018 12:24 PM EDT I have reviewed the patients controlled substance dispensing history in the Prescription Drug Monitoring Program in compliance with the [facility] regulations before prescribing a controlled substance. PDMP checked on 02/19/2018. Patient requesting: [place], filled 01/05/18, for #120 for a 30 day supply. Other recent controlled medication fills: none Medication due for refill: yes Please approve if appropriate. Thanks, Eliezer Bernard, R.Ph. Refill Pharmacist Refill Call Center [phone] 02/19/2018,12:25 PM * Telephone Encounter - Joyce Ponce OSA - 02/19/2018 9:46 AM EDT Formatting of this note may be different from the original. PDMP checked Pending Prescriptions: Disp Refills HYDROcodone-acetaminophen 5-325 mg per ta*120 Tab0 Sig: Take 1 Tab by mouth every 6 hours as needed for Pain, Breakthrough. Last Office Visit: 01/16/2018 Next Office Visit: 07/23/2018 Scheduled Provider(s): Alex Pinto MD If no future appointments scheduled, and last appointment is greater than a year ago, please schedule patient for a follow-up appointment Last date the medication was ordered: 01/05/2018 Patient Phone Numbers Labs: Lab Results Component Value Date/Time CREAT 0.9 01/14/2018 12:03 PM POTASSIUM 4.3 01/14/2018 12:03 PM TSH 0.60 01/14/2018 12:03 PM LDLCALC 118 01/14/2018 12:03 PM LDLDIRECT 114 01/14/2018 12:03 PM ALT 12 01/14/2018 12:03 PM HGBA1C 6.2 01/14/2018 12:03 PM in this encounter Plan of Treatment Upcoming Encounters Date Type Specialty Care Team Description 04/13/2018 Nutrition Services Gastroenterology Nita Enriquez, RDN [address] [place] [address] 05/29/2018 Imaging Radiology 07/23/2018 Office Visit Internal Medicine Alex Pinto MD 200 [facility] [address] Health Maintenance Due Date [...]
--- OUTSIDE RECORDS SUMMARY | 2023-06-18 03:50 | External Medical Summary ---
Author Name Unknown Address [address] [place] [address] Phone Organization K01:[facility] [address] [id number] Laboratory Report Ordering Provider Test Date Status JOSE A JOHNSON 01/16/2018 13:58:00 Final Observation Date Value Abnormality Reference Status Opiates confirm method [Identifier] in Urine 01/26/2018 13:42 LCMSMS Fi nal Codeine 01/26/2018 13:42 NEGATIVE NEG Fin al Morphine, Urine confirmatory 01/26/2018 13:42 NEGATIVE NEG Final Hydrocodone cutoff [Mass/volume] in Urine for Confirmatory method 01/26/2018 13:42 655 Abnormal NEG Elisa l Hydromorphone [Mass/volume] in Urine 01/26/2018 13:42 NEGATIVE NEG Final DIHYDROCODEINE 01/26/2018 13:42 770 Abnormal NEG Final Oxycodone cutoff [Mass/volum e] in Urine for Confirmatory method 01/26/2018 13:42 NEGATIVE NEG Final Oxymorphone cutoff [Mass/volume] in Urine for Confirmatory method 01/26/2018 13:42 NEGATIVE NEG Elisa l Cutoff Concentration 01/26/2018 13:42 Final Performing Location [facility] [address] [facility] [address]
--- OUTSIDE RECORDS SUMMARY | 2023-06-18 03:50 | External Medical Summary ---
Author Name Unknown Address [facility] [address] [place] [id number] Phone Organization K01:[facility] [address] [id number] Laboratory Report Ordering Provider Test Date Status ALIX BARFIELD 01/14/2018 12:03:00 Correction Observation Date Value Abnormality Reference Status Fasting status - Reported 01/14/2018 22:38 NOT PROVIDED Correction Triglyceride 01/14/2018 22:38 127 <200 Final Performing Location [place] [address] [facility] [address]
--- OUTSIDE RECORDS SUMMARY | 2023-06-18 03:50 | External Medical Summary ---
Author Name Unknown Address [facility] [address] [place] [id number] Phone Organization K01:[facility] [address] [id number] Laboratory Report Ordering Provider Test Date Status ALIX BARFIELD 01/14/2018 12:03:00 Final Observation Date Value Abnormality Reference Status Magnesium 01/14/2018 22:38 1.9 1.5-2.6 Fin al Performing Location [address] [address]
--- OUTSIDE RECORDS SUMMARY | 2023-06-18 03:50 | External Medical Summary | Summary of Care ---
Author Name Unknown Organization [place] [address] Phone Care Team Providers Care Internal Investigator Name Role Phone Alex Pinto MD Primary Care Provider [phone] Reason for Visit * Reason Comments eRx-Medication Refill Encounter Details Date Type Department Care Team Description 02/02/2018 Refill General Internal Medicine [facility] [address] [place] [address] Alex Pinto MD [address] [place] [address] [phone] Asthma with severity to be determined;COPD, moderate ([facility]) Allergies Active Allergy Reactions Severity Noted Date Comments Valsartan 07/10/2010 Enalapril 05/21/2006 Escitalopram Oxalate Nausea/vomiting 10/11/2009 Nauseated Iodinated Diagnostic Agents Nausea/vomiting 05/2010 IV Contrast Lisinopril 05/21/2006 Metoprolol Tartrate 11/18/2006 Made pulse low [place] Oil-Black Currant-Vit E 07/10/2010 Verapamil 03/21/2004 Bupropion [...] DilTIAZem HCl ER Coated Beads 360 MG ZT64Heppbqfzfdv:HTN, goal below 130/80 TAKE 1 CAPSULE EVERY [...] FOR NAUSEA 60 Tab 5 12/16/2017 Active HYDROcodone-acetamin ophen 5-325 mg per tab 5-325 MG per tabletIndications:Ge neralized osteoarthritis Take 1 Tab by mouth every 6 hours as needed for Pain, Breakthrough. 120 Tab 0 01/05/2018 Active COMBIVENT RESPIMAT 20-100 MCG/ACT InhalerIndications:A sthma with severity to be determined,COPD, moderate (HCC) TAKE 1 PUFF BY MOUTH 4 TIMES A DAY 1 Inhaler 5 01/09/2018 Active COMBIVENT RESPIMAT 20-100 MCG/ACT InhalerIndications:A sthma with severity to be determined,COPD, moderate (HCC) TAKE 1 PUFF BY MOUTH 4 TIMES A DAY 1 Inhaler 5 02/03/2018 Active as of this encounter Active Problems [...] Hypoxemia 10/08/2011 10/30/2015 Genetic Sleep Disorder Research Other*[id number] 07/25/2011 05/15/2016 Obesity, morbid (more than 1 [...] Telephone Encounter - Alex Pinto MD - 02/03/2018 12:39 PM EDT Signed Prescriptions: Disp Refills COMBIVENT RESPIMAT 20-100 MCG/ACT Inhaler 1 Inha*5 Sig: TAKE 1 PUFF BY MOUTH 4 TIMES A DAY Authorizing Provider: ALEX PINTO * Telephone Encounter - Radha Vargas LPN - 02/03/2018 12:21 PM EDT Pending Prescriptions: Disp Refills COMBIVENT RESPIMAT 20-100 MCG/ACT Inhaler* 5 Sig: TAKE 1 PUFF BY MOUTH 4 TIMES A DAY * Telephone Encounter - Cari Andersen LPN - 02/03/2018 10:26 AM EDT Pending Prescriptions: Disp Refills COMBIVENT RESPIMAT 20-100 MCG/ACT Inhaler * 5 Sig: TAKE 1 PUFF BY MOUTH 4 TIMES A DAY * Telephone Encounter - Cari AndersenNICOL - 02/03/2018 10:25 AM EDT Formatting of this note may be different from the original. Pending Prescriptions: Disp Refills COMBIVENT RESPIMAT 20-100 MCG/ACT Inhaler* 5 Sig: TAKE 1 PUFF BY MOUTH 4 TIMES A DAY Last Office Visit: 01/16/2018 Next Office Visit: 07/23/2018 Scheduled Provider(s): Alex Pinto MD If no future appointments scheduled, and last appointment is greater than a year ago, please schedule patient for a follow-up appointment Last date the medication was ordered: 01/09/2018 Patient Phone Numbers Labs: Lab Results Component Value Date/Time CREAT 0.9 01/14/2018 12:03 PM POTASSIUM 4.3 01/14/2018 12:03 PM TSH 0.60 01/14/2018 12:03 PM LDLCALC 118 01/14/2018 12:03 PM LDLDIRECT 114 01/14/2018 12:03 PM ALT 12 01/14/2018 12:03 PM HGBA1C 6.2 01/14/2018 12:03 PM in this encounter Plan of Treatment Upcoming Encounters Date Type Specialty Care Team Description 02/09/2018 Nutrition Services [facility]astroenterology Nita Enri[facility] [address] [facility] [address] 05/29/2018 Imaging Radiology [address] [place] [address] [phone] 07/23/2018 Office Visit Internal Medicine Alex Pinto MD 200 [facility] [place] [address] [phone] Health Maintenance Due Date Last Done Comments DTaP,Tdap,and Td Vaccines (1 - Tdap) 03/01/2009 02/28/2009 *ASTHMA ACTION PLAN-ADULT YEARLY 10/05/2014 *ADVANCE DIRECTIVE NOT ON FILE 11/03/2014 *SPIROMETRY MONITORING COMPL ETED IN PAST 2 YEARS FOR NON-SEVERE COPD 01/06/2017 DIABETES-HGBA1C EVERY 6 MONTHS 07/16/2018 0 01/14/2018, [...] obstruction, not elsewhere classified in this encounter Insurance Payer Benefit Plan / Group Subscriber ID Type Phone Address MEDICARE MEDICARE A AND B [id number] Medicare [place], [place] MEDICAID DENISHA Parks [facility] [id number] as of this encounter
--- OUTSIDE RECORDS SUMMARY | 2023-06-18 03:50 | External Medical Summary ---
Author Name Unknown Address [facility] [place] [address] Phone Organization K01:[place] [address] [id number] Laboratory Report Ordering Provider Test Date Status ALIX BARFIELD 01/14/2018 12:03:00 Final Observation Date Value Abnormality Reference Status Albumin 01/14/2018 22:38 4.3 3.8-5.0 Fin al AST (Aspartate aminotransferase) 01/14/2018 22:38 16 10-35 Final Alk Phos 01/14/2018 22:38 98 0-153 Fin al ALT (Alanine aminotransferase) 01/14/2018 22:38 12 10-35 Final Bilirubin, Total 01/14/2018 22:38 <0.2 0-1.2 Final Bilirubin, Direct 01/14/2018 22:38 <0.2 0-0.3 Final Protein 01/14/2018 22:38 7.1 6.0-8.3 Fin al Performing Location [address] [place] [address]
--- OUTSIDE RECORDS SUMMARY | 2023-06-18 03:50 | External Medical Summary | Summary of Care ---
Author Name Unknown Organization [place] [address] Phone Care Team Providers Care Straightener Hand Name Role Phone Marcela Pinto MD Primary Care Provider [phone] Reason for Visit * Reason Comments Weight Management Medical Management Encounter Details Date Type Department Care Team Description 02/09/2018 Nutrition Services Nutrition & Weight Management, [facility] [address] [facility] [place] [address] Nita Enriquez, AKIKO [address] [place] [address] Type 2 diabetes mellitus with hemoglobin A1c goal of less than 7.5% ([facility])*;Obesity, Class II, BMI 35.0-39.9, with comorbidity (see actual BMI);Hyperlipidemia with target LDL less than 100;HTN, goal below 140/90 Allergies Active Allergy Reactions Severity Noted Date Comments Valsartan 07/10/2010 Enalapril 05/21/2006 Escitalopram Oxalate Nausea/vomiting 10/11/2009 Nauseated Iodinated Diagnostic Agents Nausea/vomiting 05/2010 IV Contrast Lisinopril 05/21/2006 Metoprolol Tartrate 11/18/2006 Made pulse low [place] Oil-Black Currant-Vit E 07/10/2010 Verapamil 03/21/2004 Bupropion [...] DilTIAZem HCl ER Coated Beads 360 MG YE24Azvtwmszyvd:HTN, goal below 130/80 TAKE 1 CAPSULE EVERY [...] Hypoxemia 10/08/2011 10/30/2015 Genetic Sleep Disorder Research Other*[id number] 07/25/2011 05/15/2016 Obesity, morbid (more than 1 [...] less than 7.0% ([facility]) 08/10/2009 Overview: Per Diabetes Taxonomy. ICD-10 update [...] Vital Sign Reading Time Taken Blood Pressure 118/64 02/09/2018 11:49 AM EDT Pulse 72 02/09/2018 11:49 AM EDT Temperature - - Respiratory Rate - - Oxygen Saturation - - Inhaled Oxygen Concentration - - Weight 109.4 kg (241 lb 3.2 oz) 018 11:49 AM EDT Height - - Body Mass Index 40.14 02/09/2018 11:49 AM EDT in this encounter Instructions * Patient Instructions - Nita Enriquez RDN - 02/09/2018 12:27 PM EDT PATIENT GOALS: 1) Keep Food/Exercise log in this encounter Progress Notes * Nita Enriquez RDN - 02/09/2018 12:16 PM EDT GI/NUTRITION FOLLOW UP [facility] Patient was identified at visit by name and date. PATIENT: Nina Harrington DATE: 02/09/2018 NUTRITION ASSESSMENT SUBJECTIVE: Patient here today as a return visit for nutrition counseling. Describes typical diet history/24 hr recall Breakfast: Glucerna or Boost Glucose Controll Snacks:[place] or Banana Lunch:Tuna Salad [place] Dinner: Fish, Potatoes and a Vegetable Drinks: 30 ounces of water, 32-40 ounces of decaf coffee. Patient checks blood sugars 110-115 mg/dl this morning CURRENT WT:241.2 lbs 02/09/18 Patient has been seeing Laura Davis Dietitian at the clinic here for the past several years. Highest Weight a few years ago: 295 lbs WEIGHT CHANGES: Weight increased 7.1 lbs since last review 9/19/17 237 lbs MNT: Calorie Controlled Diet, Consistent Carbohydrate Patient [...] Logs PATIENT GOALS: 1) Keep Food/Exercise log EXPECTED OUTCOMES: Demonstrated interest in learning. Expect compliance with diet recommendations. NUTRITION MONITORING PLAN: Patient scheduled to return in 2 months; dietitian phone # given for future reference. 30 minute retun visit Nita Enriquez RDN in this encounter Nursing Notes * Dionte Billy LPN - 02/09/2018 11:49 AM EDT Formatting of this note may be different from the original. Pt verified identity by last name and date. Chief Complaint Patient presents with Weight Management Medical Management in this encounter Plan of Treatment Upcoming Encounters Date Type Specialty Care Team Description 04/13/2018 Nutrition Services Gastroenterology Nita Enriquez RDN [address] [facility] [place] [address] 05/29/2018 Imaging Radiology [address] [place] [address] [phone] 07/23/2018 Office Visit Internal Medicine Marcela Pinto MD 200 [facility] [place] [address] [phone] Scheduled Tests Name Priority Associated Diagnoses Order S chedule MED NUTRITION TX; SUBSEQ 15 MIN (PROVIDER) Routine Type 2 diabetes mellitus with hemoglobin A1c goal of less than 7.5% (HCC) Obesity, Class II, BMI 35.0-39.9, with comorbidity (see actual BMI) Hyperlipidemia with target LDL less than 100 HTN, goal below 140/90 Ordered: 02/09/2018 Health Maintenance Due Date Last Done Comments DTaP,Tdap,and Td Vaccines (1 - Tdap) 03/01/2009 02/28/2009 *ASTHMA ACTION PLAN-ADULT YEARLY 10/05/2014 *ADVANCE DIRECTIVE NOT ON FILE 11/03/2014 DIABETES-HGBA1C EVERY 6 MONTHS 07/16/2018 0 01/14/2018, [...] 140/90 Unspecified essential hypertension in this encounter Insurance Payer Benefit Plan / Group Subscriber ID Type Phone Address MEDICARE MEDICARE A AND B [id number] Medicare [place], [place] MEDICAID PENNA M Charly [facility] [id number] as of this encounter
--- OUTSIDE RECORDS SUMMARY | 2023-06-18 03:50 | External Medical Summary ---
Author Name Unknown Address [address] [facility] [place] [address] Phone Organization K01:[facility] [address] [place] [id number] Laboratory Report Ordering Provider Test Date Status ALIX BARFIELD 01/14/2018 12:03:00 Final Observation Date Value Abnormality Reference Status WBC, Total 01/14/2018 22:34 9.89 4.00-10.80 F inal RBC 01/14/2018 22:34 4.09 3.85-5.15 Fin al Hemoglobin 01/14/2018 22:34 11.5 Below low normal 12.0- 15.3 Final HCT 01/14/2018 22:34 37.7 36.0-45.2 Fin al MCV 01/14/2018 22:34 92.2 81.5-97.5 Fin al MCH 01/14/2018 22:34 28.1 27.0-34.0 Fin al MCHC 01/14/2018 22:34 30.5 Below low normal 32.0-3 6.0 Final RDW 01/14/2018 22:34 14.4 11.5-15.5 Fin al Platelets 01/14/2018 22:34 341 140-400 Fin al MPV 01/14/2018 22:34 10.0 6.6-11.1 Fin al Performing Location [facility] [address] [facility] [address]
--- OUTSIDE RECORDS SUMMARY | 2023-06-18 03:50 | External Medical Summary ---
Author Name Unknown Address [facility] [address] [place] [id number] Phone Organization K01:[place] [address] [address] [place] [id number] Laboratory Report Ordering Provider Test Date Status ELIO BARFIELDROSI 01/14/2018 12:03:00 Final Observation Date Value Abnormality Reference Status TSH 01/14/2018 23:20 0.60 0.27-4.2 Fin al Performing Location [place] [id number]
--- OUTSIDE RECORDS SUMMARY | 2023-06-18 03:50 | External Medical Summary ---
Author Name Unknown Address [facility] [place] [address] Phone Organization K01:[facility] [address] [address] Laboratory Report Ordering Provider Test Date Status ELIO BARFIELDROSI 01/14/2018 12:03:00 Final Observation Date Value Abnormality Reference Status BUN 01/14/2018 22:38 15 6-20 Fin al Creatinine 01/14/2018 22:38 0.9 0.5-1.0 Fi nal Performing Location [facility] [address] [place] [id number]
--- OUTSIDE RECORDS SUMMARY | 2023-06-18 03:50 | External Medical Summary | Summary of Care ---
Author Name Unknown Organization [place] [address] Phone Care Team Providers Care Refrigeration Engineer Name Role Phone Marcela Pinto MD Primary Care Provider [phone] Encounter Details Date Type Department Care Team Description 02/27/2018 Orders Only General Internal Medicine [facility] [address] [facility] [address] [place] [address] Marcela Pinto MD 200 [place] [address] [phone] Allergies Active Allergy Reactions Severity Noted Date Comments Valsartan 07/10/2010 Enalapril 05/21/2006 Escitalopram Oxalate Nausea/vomiting 10/11/2009 Nauseated Iodinated Diagnostic Agents Nausea/vomiting 05/2010 IV Contrast Lisinopril 05/21/2006 Metoprolol Tartrate 11/18/2006 Made pulse low [place] Oil-Black Currant-Vit E 07/10/2010 Verapamil 03/21/2004 Bupropion [...] DilTIAZem HCl ER Coated Beads 360 MG RR93Bbpbmenqmrr:HTN, goal below 130/80 TAKE 1 CAPSULE EVERY [...] Active Problems Problem Noted Date Ischemic colitis ([facility]) 10/01/2017 Lower GI bleed 04/21/2017 Irritable bowel syndrome with constipati on 04/21/2017 Elevated plasma metanephrines 02/20/2017 Type 2 diabetes mellitus with hemoglobin A1c goal of less than 7.5% ([facility]) 02/12/2017 Hypercalcemia 02/12/2017 Controlled substance [...] AHP Diverticulitis of colon 07/25/2011 COPD, moderate ([facility]) 07/19/2011 Overview: Dr Bhatti every 6 months Allergic rhinitis 07/19/2011 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 Asthma with severity to be determined Carpal tunnel syndrome EDEMA dependent, ankles Generalized osteoarthritis ACEI/ARB contraindicated as of this encounter Resolved Problems Problem Noted Date Resolved Date DM (diabetes mellitus), type 2 ([facility]) 08/07/2015 06/25/2017 Nausea 09/05/2012 06/25/2017 Overview: ICD-10 update of inactive term HTN, GOAL BELOW 140/80 06/01/2012 6 Overview: Per HTN Protocol #27. Hypoxemia 10/08/2011 10/30/2015 Genetic Sleep Disorder Research Other*[id number] 07/25/2011 05/15/2016 Obesity, morbid (more than 1 00 lbs over ideal weight or BMI > 40) ([facility]) 01/09/2010 08/19/2017 Overview: Per Obesity [...] less than 7.0% ([facility]) 08/10/2009 12/03/2012 Overview: Per Diabetes Taxonomy. ICD-10 update of inactive term Type 2 diabetes mellitus wit h hemoglobin A1c goal of less than 7.0% ([facility]) 08/10/2009 Overview: Per Diabetes Taxonomy. [...] Description 04/13/2018 Nutrition Services Gastroenterology Nita Enriquez, IWONAN [address] [place] [id number] 05/29/2018 Imaging Radiology 07/23/2018 Office Visit Internal Medicine Marcela Pinto MD 200 [facility] [place] [address] Pending Results Name Priority Associated Diagnoses Date/Ti me CHEMISTRY-OUTSIDE Routine 02/27/2018 12:00 AM EDT TSH Routine 02/27/2018 12:0 0 AM EDT Health Maintenance Due Date Last [...]
--- OUTSIDE RECORDS SUMMARY | 2023-06-18 03:50 | External Medical Summary | Summary of Care ---
Author Name Unknown Organization [place] [address] Phone Care Team Providers Care Assistant Professor Nurse Education Name Role Phone Marcela Pitno MD Primary Care Provider [phone] Reason for Visit * Reason Comments TEST RESULTS Encounter Details Date Type Department Care Team Description 01/29/2018 Telephone General Internal Medicine [facility] [address] [place] [address] Marcela Pinto MD [address] [place] [address] [phone] TEST RESULTS Allergies Active Allergy Reactions Severity Noted Date Comments Valsartan 07/10/2010 Enalapril 05/21/2006 Escitalopram Oxalate Nausea/vomiting 10/11/2009 Nauseated Iodinated Diagnostic Agents Nausea/vomiting 05/2010 IV Contrast Lisinopril 05/21/2006 Metoprolol Tartrate 11/18/2006 Made pulse low [place] Oil-Black Currant-Vit E 07/10/2010 Verapamil 03/21/2004 Bupropion [...] goal of less than 7.5% ([facility]) TAKE 1 TABLET BY MOUTH IN [...] DilTIAZem HCl ER Coated Beads 360 MG [id number]:HTN, goal below 130/80 TAKE 1 CAPSULE EVERY DAY 90 Cap 1 11/07/2017 Active omeprazole (PRILOSEC) 20 MG CPDRIndications:Isch emic colitis ([facility]) TAKE 1 CAPSULE TWICE DAILY 180 Cap [...] A DAY 1 Inhaler 5 01/09/2018 Active as of this encounter Active Problems [...] Hypoxemia 10/08/2011 10/30/2015 Genetic Sleep Disorder Research Other*[id number] 07/25/2011 05/15/2016 Obesity, morbid (more than 1 [...] goal of less than 7.0% ([facility]) 08/10/2009 12/03/2012 Overview: Per Diabetes Taxonomy. ICD-10 update of inactive term Type 2 diabetes mellitus wit h hemoglobin A1c goal of less than 7.0% ([facility]) 08/10/2009 Overview: Per Diabetes Taxonomy. ICD-10 [...] Telephone Encounter - Marcela Pinto MD - 01/29/2018 10:36 AM EDT Recent drug screen is consistent with patient 's compliance about taking current pain medications. We will continue current dosage. in this encounter Plan of Treatment Upcoming Encounters Date Type Specialty Care Team Description 02/09/2018 Nutrition Services Gastroenterology Nita Enriquez, RDN [address] [place] [address] 05/29/2018 Imaging Radiology [address] [place] [address] [phone] 07/23/2018 Office Visit Internal Medicine Marcela Pinto MD [address] [place] [address] [phone] Health Maintenance Due Date Last Done Comments [...] Implants Not on fileas of this encounter Insurance Payer Benefit Plan / Group Subscriber ID Type Phone Address MEDICARE MEDICARE A AND B [id number] Medicare [place], [place] MEDICAID DENISHA Parks [facility] [id number] as of this encounter
--- OUTSIDE RECORDS SUMMARY | 2023-06-18 03:50 | External Medical Summary | Summary of Care ---
Author Name Unknown Organization [place] [address] Phone Care Team Providers Care Doorperson Or Luggage Porter Name Role Phone Alex Pinto MD Primary Care Provider [phone] Reason for Visit * Reason Comments eRx-Medication Refill Encounter Details Date Type Department Care Team Description 02/24/2018 Refill General Internal Medicine [facility] [address] [place] [address] Alex Pinto MD [address] [place] [address] [phone] Asthma with severity to be determined* Allergies Active Allergy Reactions Severity Noted Date Comments Valsartan 07/10/2010 Enalapril 05/21/2006 Escitalopram Oxalate Nausea/vomiting 10/11/2009 Nauseated Iodinated Diagnostic Agents Nausea/vomiting 05/2010 IV Contrast Lisinopril 05/21/2006 Metoprolol Tartrate 11/18/2006 Made pulse low [place] Oil-Black Currant-Vit E 07/10/2010 Verapamil 03/21/2004 [...] DilTIAZem HCl ER Coated Beads 360 MG [id number]:HTN, goal below 130/80 TAKE 1 CAPSULE EVERY [...] Active Problems Problem Noted Date Ischemic colitis ([facility]) 10/01/2017 Lower GI bleed 04/21/2017 [...] Resolved Date DM (diabetes mellitus), type 2 (HCC) 08/07/2015 06/25/2017 Nausea 09/05/2012 06/25/2017 Overview: ICD-10 update of inactive term HTN, GOAL BELOW 140/80 06/01/2012 6 Overview: Per HTN Protocol #27. Hypoxemia 10/08/2011 10/30/2015 Genetic Sleep Disorder Research Other*[id number] 07/25/2011 05/15/2016 Obesity, morbid (more than 1 [...] 7.0% ([facility]) 08/10/2009 12/03/2012 Overview: Per Diabetes Taxonomy. ICD-10 update of inactive term Type 2 diabetes mellitus wit h hemoglobin A1c goal of less than 7.0% ([facility]) 08/10/2009 Overview: Per Diabetes Taxonomy. [...] Telephone Encounter - Alex Pinto MD - 02/25/2018 4:20 PM EDT Signed Prescriptions: Disp Refills zafirlukast (ACCOLATE) 20 MG Tablet 90 Tab 1 Sig: TAKE 1 TABLET EVERY DAY Authorizing Provider: ALEX PINTO * Telephone Encounter - Nicole Saeed LPN - 02/24/2018 4:17 PM EDT Pending Prescriptions: Disp Refills zafirlukast (ACCOLATE) 20 MG Tablet [Phar*90 Tab 1 Sig: TAKE 1 TABLET EVERY DAY * Telephone Encounter - Nicole Saeed LPN - 02/24/2018 4:13 PM EDT Formatting of this note may be different from the original. Pending Prescriptions: Disp Refills zafirlukast (ACCOLATE) 20 MG Tablet [Phar*90 Tab 1 Sig: TAKE 1 TABLET EVERY DAY Last Office Visit: 01/16/2018 Next Office Visit: 07/23/2018 Scheduled Provider(s): Alex Pinto MD Last date the medication was ordered: 09/03/17 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 COPD, moderate ([facility]) J44.9 Allergic rhinitis J30.9 Diverticulitis of colon K57.32 Nocturnal hypoxia G47.34 Sleep apnea, obstructive G47.33 Incisional hernia K43.2 ACEI/ARB contraindicated [id number] HTN, goal below 140/90 I10 Hyperlipidemia with [...] ([facility]) K55.9 Labs: CREATININE TIM(mg/dL) Jessica Dt/Tm Resulted Value Status 01/16/18 1:58P 01/26/18 57 FINAL POTASSIUM(mmol/L) Jessica Dt/Tm Resulted Value Status 01/14/18 12:03P 01/14/18 4.3 FINAL TSH(uIU/mL) Jessica Dt/Tm Resulted Value Status 01/14/18 12:03P 01/14/18 0.60 FINAL LDL (CALCULATED)(mg/dL) Jessica Dt/Tm Resulted Value Status 4/4/18 12:03P 01/14/18 118 EDITED LDL (DIRECT MEASURE)(mg/dL) Jessica Dt/Tm Resulted Value Status 01/14/18 12:03P 01/14/18 114 FINAL ALT(U/L) Jessica Dt/Tm Resulted Value Status 01/14/18 12:03P 01/14/18 12 FINAL Hemoglobin AIC Results: HEMOGLOBIN, A1C(%) Jessica Dt/Tm Resulted Value Status 01/14/18 12:03P 01/14/18 6.2 FINAL HEMOGLOBIN, D9V-DVMPVIS LAB(%) Jessica Dt/Tm Resulted Value Status 11/20/17 11/21/17 6.3 FINAL HEMOGLOBIN, A1C(%) Jessica Dt/Tm Resulted Value Status 05/19/17 12:11P 05/19/17 5.9 FINAL in this encounter Plan of Treatment Upcoming Encounters Date Type Specialty Care Team Description 04/13/2018 Nutrition Services Gastroenterology Nita Enriquez, AKIKO [address] [facility] [place] [address] 05/29/2018 Imaging Radiology 07/23/2018 Office Visit Internal Medicine Alex Pinto MD [address] [place] [address] Health Maintenance Due Date Last Done [...] Asthma with severity to be d etermined - Primary in this encounter
--- OUTSIDE RECORDS SUMMARY | 2023-06-18 03:50 | External Medical Summary ---
Author Name Unknown Address [facility] [place] [address] Phone Organization K01:[facility] [address] [place] [id number] Laboratory Report Ordering Provider Test Date Status LICODEBBIE GRAHAMGREGORY 01/14/2018 12:03:00 Final Observation Date Value Abnormality Reference Status T4, Free 01/14/2018 23:20 1.20 0.9-1.7 Fin al Performing Location [place] [address] [address] [facility] [address]
--- OUTSIDE RECORDS SUMMARY | 2023-06-18 03:50 | External Medical Summary | Summary of Care ---
Author Name Unknown Organization [place] [address] Phone Care Team Providers Care Residential Child Care Counselor Name Role Phone Marcela Pinto MD Primary Care Provider [phone] Reason for Visit * Reason Comments FOLLOW UP Encounter Details Date Type Department Care Team Description 01/16/2018 Office Visit General Internal Medicine [facility] [address] [place] [address] Marcela Pinto MD 200 [place] [address] [phone] Type 2 diabetes mellitus with hemoglobin A1c goal of less than 7.5% ([facility])*;DM type 2 nursing care encounter ([facility]);Abdominal pain, generalized;COPD, moderate ([facility]);Generalized osteoarthritis;Sleep apnea, obstructive;HTN, goal below 140/90;Obesity, Class II, BMI 35.0-39.9, with comorbidity (see actual BMI);Bilateral low back pain with right-sided sciatica, unspecified chronicity;Myalgia Allergies Active Allergy Reactions Severity Noted Date Comments Valsartan 07/10/2010 Enalapril 05/21/2006 Escitalopram Oxalate Nausea/vomiting 10/11/2009 Nauseated Iodinated Diagnostic Agents Nausea/vomiting 05/2010 IV Contrast Lisinopril 05/21/2006 Metoprolol Tartrate 11/18/2006 Made pulse low [place] Oil-Black Currant-Vit E 07/10/2010 Verapamil 03/21/2004 Bupropion [...] DilTIAZem HCl ER Coated Beads 360 MG [id number]:HTN, goal below 130/80 TAKE 1 CAPSULE EVERY [...] Hypoxemia 10/08/2011 10/30/2015 Genetic Sleep Disorder Research Other*[id number] 07/25/2011 05/15/2016 Obesity, morbid (more than 1 [...] Sign Reading Time Taken Blood Pressure 126/66 01/16/2018 1:14 PM EDT Pulse 84 01/16/2018 1:14 PM EDT Temperature 36.8 C (98.2 F) 01/16/2018 1 :14 PM EDT Respiratory Rate 18 01/16/2018 1:14 PM EDT Oxygen Saturation 88% 01/16/2018 1:1 4 PM EDT Inhaled Oxygen Concentration - - Weight 109.4 kg (241 lb 3.2 oz) 018 1:14 PM EDT Height 165.1 cm (5' 5") 01/16/2018 1:14 PM EDT Body Mass Index 40.14 01/16/2018 1:14 PM EDT in this encounter Instructions * Patient Instructions - Renetta Gu LPN - 01/16/2018 1:15 PM EDT Diabetes: Keeping Feet Healthy Inspect [...] calluses yourself. Talk to your doctor or pipe line repairer (a doctor who specializes in foot care) [...] the area doesnt appear to be healing. [phone] The [employer], [address] [place] [address], [place] [address]. All rights reserved. This information is not intended as a substitute for professional medical care. Always follow your healthcare professional's instructions. in this encounter Progress Notes * Marcela Pinto MD - 01/16/2018 1:27 PM EDT Formatting of this note may be different from the original. HPI: Nina Harrington is a 77 year old female with hx of Asthma, COPD, OA, recurrent diverticulitis, recentSBO and was admitted at [facility], Hx of ischemic colitis, Type 2 DM, chronic back and multiple jointpains, on Vicodin, who presents with: Chief Complaint Patient presents with FOLLOW UP Patient is here for the recheck. Chart reviewed with the patient including current meds, last labs and HM. No acute event since we saw her last time including no recent fall or injuries. Uses oxygen at night time and sometimes with excertion, sees Dr. Bhatti every 6 months. Had PFT lasttime with them and was stable. Pt was given Symbicort , which she quit as felt it was giving her cold. Discussed starting it again. swealling in legs when sits or stands for long time. Takes diuretic. Denies any chestpain/palpitation Denies nausea,vomiting, diarrhoea, constipation, abdominal pain or blood in stool. Denies heart burn. Has good appetite. Hemoglobin AIC Results: HEMOGLOBIN, A1C(%) Jessica Dt/Tm Resulted Value Status 01/14/18 12:03P 4/4/18 6.2 FINAL HEMOGLOBIN, A6N-OAMKICK LAB(%) Jessica Dt/Tm Resulted Value Status 11/20/17 11/21/17 6.3 FINAL HEMOGLOBIN, A1C(%) Jessica Dt/Tm Resulted Value Status 05/19/17 12:11P 05/19/17 5.9 FINAL 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 COPD, moderate ([facility]) J44.9 Allergic rhinitis J30.9 Diverticulitis of colon K57.32 Nocturnal hypoxia G47.34 Sleep apnea, obstructive G47.33 Incisional hernia K43.2 ACEI/ARB contraindicated [id number] HTN, goal below 140/90 I10 Hyperlipidemia with [...] colitis ([facility]) K55.9 Current Outpatient Prescriptions Medication Sig Dispense [...] TIMES EVERY DAY INTO BOTH EYES 4 baclofen (LIORESAL) 10 MG Tablet Take 1 Tab by mouth 2 times a day. 20 Tab 0 CLONIDINE HCL 0.1 MG PO TABS One pill by mouth as needed for bp over 170/90 10 0 COMBIVENT RESPIMAT 20-100 MCG/ACT Inhaler TAKE [...] 1 CAPSULE EVERY DAY 90 Cap 1 diphenhydramine (BENADRYL) 25 MG Tablet Take by mouth once. Patient Allergic to IV Contrast (Radiologist Protocol) - Take Two tablets 1 hour before scan time with Prednisone. 2 Tab 0 furosemide (LASIX) 40 MG Tablet One pill [...] stool per day. . 2 Bottle 3 Potassium Chloride Annalisa ER 20 MEQ TBCR One pill once daily as needed with lasix. 60 Tab 11 Probiotic Product (PROBIOTIC DAILY) Capsule Take 1 Cap by mouth daily. SENNA PLUS 8.6-50 MG per tablet TAKE 1 TABLET TWICE A DAY FOR CONSTIPATION 50 Tab 0 SPIRIVA HANDIHALER 18 MCG IN CAPS INHALE [...] Contrast Lisinopril Metoprolol Tartrate Made pulse low [place] Oil-Black Currant-Vit E Verapamil Wellbutrin [Bupropion Hcl] Makes pt sick in the stomach Past Medical History: Diagnosis Date ACEI/ARB contraindicated Asthma Carpal tunnel syndrome DM type 2, goal: symptom mgmt (HCC) Generalized osteoarthritis HTN, goal below 140/90 Mixed dyslipidemia 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 Marital status: Spouse name: N/A Number of children: 6 Years of education: N/A Occupational 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 OBJECTIVE: BP 126/66 | Pulse 84 | Temp (Src) 98.2 (Tympanic) | Resp 18 | Ht 5' 5" (1.651m) | Wt 241 lbs 3.2 oz(109.408kg) | BMI 40.14 kg/m | BSA 2.24 m | SaO2 88% PHYSICAL EXAM: HEENT: PERRLA, EOMI, anicteric sclera,, no pharyngeal erythema, no lymphadenopathy, neck supple CVS: RRR, no murmurs, rubs or gallops, s1 s 2normal. RESP: clear to auscultation, no wheezing or crackles ABD: soft, EXT: Bl LE edema, cyanosis, peripheral pulses palpable bilaterally No large joint swelling, no redness, range of motion normal. ASSESSMENT AND PLAN: E11.9 Dm type 2 nursing care encounter ([facility]) (primary encounter diagnosis) Plan: Other: 1. Diabetes foot exam R10.84 Abdominal pain, generalized J44.9 Copd, moderate ([facility]) Continue symbicort, proair as needed. E11.9 Type 2 diabetes mellitus with hemoglobin a1c goal of less than 7.5% ([facility]) M15.9 Generalized osteoarthritis G47.33 Sleep apnea, obstructive I10 Htn, goal below 140/90 E66.9 Obesity, class ii, bmi 35.0-39.9, with comorbidity (see actual bmi) M54.41 Bilateral low back pain with right-sided sciatica, unspecified chronicity Plan: Lab: 1. Opioids/benzo compliance monitoring w/interp Future expected: 01/16/2018 M79.1 Myalgia Plan: Lab: 1. Opioids/benzo compliance monitoring w/interp Future expected: 01/16/2018 * Renetta Gu LPN - 01/16/2018 1:15 PM EDT DM Foot Exam completed today. Provider aware. Renetta Gu LPN Socks and Shoes Removed for Annual [...] monofilament pressure on plantar surface of foot in this encounter Nursing Notes * Renetta Gu, CLIENT SUCCESS DIRECTOR - 01/16/2018 1:14 PM EDT Here for follow up, problems with right groin pain back to back Problems with bilateral feet swelling since surgery in November in this encounter Plan of Treatment Upcoming Encounters Date Type Specialty Care Team Description 02/09/2018 Nutrition Services [facility]astroenterology Nita En[facility]quez[facility]N [address] [facility] [id number] 05/29/2018 Imaging Radiology [address] [place] [address] [phone] 07/23/2018 Office Visit Internal Medicine Marcela Pinto MD [address] [place] [address] [phone] Pending Results Name Priority Associated Diagnoses Date/Ti me OPIOIDS/BENZO COMPLIANCE MONITORING W/INTERP Routine Bilateral low back pain with right-sided sciatica, unspecified chronicity Myalgia 01/16/2018 1:58 PM EDT Scheduled Tests Name Priority Associated Diagnoses Order S chedule OPIOIDS/BENZO COMPLIANCE MONITORING W/INTERP Routine Bilateral low back pain with right-sided sciatica, unspecified chronicity Myalgia Expected: 01/16/2018 (Approximate), Expires: 01/16/2019 Health Maintenance Due Date Last Done Comments DTaP,Tdap,and Td Vaccines (1 - Tdap) 03/01/2009 02/28/2009 *ASTHMA ACTION PLAN-ADULT YEARLY 10/05/2014 *ADVANCE DIRECTIVE NOT ON FILE 11/03/2014 *SPIROMETRY MONITORING COMPL ETED IN PAST 2 YEARS FOR NON-SEVERE COPD 01/06/2017 DIABETES-FOOT EXAM 11/15/2017 11/15/2016, 0 02/23/2016, 03/28/2015, Additional history exists DIABETES-HGBA1C EVERY 6 MONTHS 07/16/2018 0 01/14/2018, 11/20/2017, 05/19/2017, Additional history exists DIABETES-EYE EXAM 08/04/2018 08/04/2017, , 09/23/2011, Additional history exists DIABETES-URINE MICROALBUMIN EVERY 12 MONTHS 11/20/2018 11/20/2017, 05/19/2017, 05/19/2017, Additional history exists DIABETES-LDL EVERY 12 MONTHS 01/14/201901/2018, 01/14/2018, 06/23/2017, Additional history exists DXA-EVERY 5 YRS-USE SMARTSET # 3348 TO ORDER 05/01/2020 05/01/2015, 06/19/2010, 06/19/2010, Additional history exists COLONOSCOPY-EVERY 3 YRS AGES 18-100 06/05/2020 06/05/2017, 05/29/2016, 05/02/2014, Additional history exists PNEUMOCOCCAL ADULT 65 YRS AND OVER Completed 2014, 05/21/2006 Influenza Vaccine (FLU shot) Completed , 08/15/2016, 07/14/2015, Additional history exists as of this encounter Implants Not on fileas of this encounter Results * URINE TEMPERATURE (01/16/2018 1:58 PM) Component Value Ref Range URINE TEMPERATURE 94 90 - 100 F Specimen Performing Laborator y [facility] [address] [place] [address] in this encounter Visit Diagnoses Diagnosis Type 2 diabetes mellitus wit h hemoglobin A1c goal of less than 7.5% ([facility]) - Primary DM type 2 nursing care encou nter ([facility]) Type II or unspecified type diabetes mellitus without mention of complication, not stated as uncontrolled Abdominal pain, generalized COPD, moderate ([facility]) Chronic airway obstruction, not elsewhere classified Generalized osteoarthritis Generalized osteoarthrosis, unspecified site Sleep apnea, obstructive Obstructive sleep apnea (adult) (pediatric) HTN, goal below 140/90 Unspecified essential hypertension Obesity, Class II, BMI 35.0- 39.9, with comorbidity (see actual BMI) Morbid obesity Bilateral low back pain with right-sided sciatica, unspecified chronicity Myalgia Mylagia and myositis, unspecified in this encounter Insurance Payer Benefit Plan / Group Subscriber ID Type Phone Address MEDICARE MEDICARE A AND B [id number] Medicare [place] MEDICAID DENISHA Parks [facility] [id number] as of this encounter
--- OUTSIDE RECORDS SUMMARY | 2023-06-18 03:50 | External Medical Summary ---
Author Name Unknown Address [address] [id number] Phone Organization K01:[facility] [address] [id number] Laboratory Report Ordering Provider Test Date Status JOSE A JOHNSON 01/16/2018 13:58:00 Final Observation Date Value Abnormality Reference Status COMPLIANCE INTERP 01/26/2018 15:42 (NOTE) Final Performing Location [facility] [address] [phone]
--- OUTSIDE RECORDS SUMMARY | 2023-06-18 03:50 | External Medical Summary ---
Author Name Unknown Address [address] [place], [place] [address] Phone Organization K09:[facility] [address] [place] [address] Laboratory Report Ordering Provider Test Date Status JOSE A JOHNSON 01/16/2018 13:58:00 Final Observation Date Value Abnormality Reference Status Temperature of Urine 01/16/2018 14:00 94 90 -100 Final Performing Location [facility] [address] [place] [address]
--- OUTSIDE RECORDS SUMMARY | 2023-06-18 03:50 | External Medical Summary ---
Author Name Unknown Address [facility] [place] [address] Phone Organization K01:[place] [address] [place] [id number] Laboratory Report Ordering Provider Test Date Status ALIX BARFIELD 01/14/2018 12:03:00 Final Observation Date Value Abnormality Reference Status LDL, (direct) 01/14/2018 22:38 114 0-129 Final Performing Location [place] [address] [place] [id number]
--- OUTSIDE RECORDS SUMMARY | 2023-06-18 03:51 | External Medical Summary | Summary of Care ---
Author Name Unknown Organization [place] [address] Phone Care Team Providers Care Cytogenetics Technologist Name Role Phone Marcela Pinto MD Primary Care Provider [phone] Reason for Visit * Reason Comments HOSPITAL FOLLOW-UP Encounter Details Date Type Department Care Team Description 12/11/2017 Office Visit General Internal Medicine [facility] [address] [place] [address] Marcela Pinto MD [address] [place] [address] [phone] SBO (small bowel obstruction)*;Risk and functional assessment;Asthma with severity to be determined;COPD, moderate ([facility]);Type 2 diabetes mellitus with hemoglobin A1c goal of less than 7.5% ([facility]);Nocturnal hypoxia;Sleep apnea, obstructive;Ischemic colitis ([facility]);Chronic fatigue;Other iron deficiency anemia Allergies Active Allergy Reactions Severity Noted Date Comments Valsartan 07/10/2010 Enalapril 05/21/2006 Escitalopram Oxalate Nausea/vomiting 10/11/2009 Nauseated Iodinated Diagnostic Agents Nausea/vomiting 05/2010 IV Contrast Lisinopril 05/21/2006 Metoprolol Tartrate 11/18/2006 Made pulse low [place] Oil-Black Currant-Vit E 07/10/2010 Verapamil 03/21/2004 Bupropion Hcl 10/30/2009 Makes pt sick in the stomach as of this encounter Medications Prescription Sig. Disp. Refills Start Date End Date Status CLONIDINE HCL 0.1 MG PO TABSIndications:HTN , goal below 130/80 One pill by mouth as needed for bp over 170/90 10 0 0 Active VITAMIN D 1000 UNITS PO TABS [...] Active Potassium Chloride Annalisa ER 20 MEQ TBCRIndications:Ess ential hypertension with goal blood pressure less than 140/90 One pill once daily as needed with lasix. 60 Tab 11 6 Active polyethylene glycol 3350 (MIRALAX) 255 gram powder Take 17 g by mouth 2 times a day. One cap full in juice, to effect 1 stool per day. . 2 Bottle 3 6 Active diphenhydramine (BENADRYL) 25 MG Tablet Take [...] mouth daily. 100 Tab 3 7 Active ondansetron ODT (ZOFRAN) 8 MG TBDPIndications:David sea Place 1 Tab on tongue every 8 hours as needed for Nausea. DISSOLVE 1 TABLET IN MOUTH EVERY 8 HOURS NEEDED FOR NAUSEA 60 Tab 3 7 Active Multiple Vitamins-Minerals (ONE DAILY MULTIVITAMIN WOMEN) TABS one pill each day 7 Active SENNA PLUS 8.6-50 MG per tablet TAKE 1 TABLET TWICE A DAY FOR CONSTIPATION 50 Tab 0 7 Active furosemide (LASIX) 40 MG TabletIndications:E ssential hypertension with goal blood pressure less than 130/80 One pill daily as needed for edema. 30 Tab 11 7 Active atorvaSTATin (LIPITOR) 20 MG Tablet Take 20 mg by mouth daily. Take 20 mg by mouth daily. 5 7 Active COMBIVENT RESPIMAT 20-100 MCG/ACT InhalerIndications: Asthma with severity to be determined,COPD, moderate (HCC) TAKE 1 PUFF BY MOUTH 4 TIMES A DAY 1 Inhaler 5 7 Active baclofen (LIORESAL) 10 MG TabletIndications:M id back pain on left side Take 1 Tab by mouth 2 times a day. 20 Tab 0 7 Active albuterol sulfate (PROVENTIL) (2.5 MG/3ML) 0.083% nebulizer solutionIndications :Asthma with severity to be determined,COPD, moderate (HCC) USE ONE NEBULIZER TREATMENT TWICE A DAY NEEDED FOR WORSENING ASTHMA. J45.909, J44.9 225 mL 1 7 Active zafirlukast (ACCOLATE) 20 MG TabletIndications:A sthma with severity to be determined TAKE 1 TABLET EVERY DAY 90 Tab 1 7 Active dicyclomine (BENTYL) 20 MG [...] DilTIAZem HCl ER Coated Beads 360 MG [id number]:HTN , goal below 130/80 TAKE 1 CAPSULE EVERY DAY 90 Cap 1 8 Active omeprazole (PRILOSEC) 20 MG CPDRIndications:Isc hemic colitis (HCC) TAKE 1 CAPSULE TWICE DAILY 180 Cap 1 8 Active HYDROcodone-acetami nophen 5-325 mg per tab 5-325 MG per tabletIndications:G eneralized osteoarthritis Take 1 Tab by mouth every 6 hours as needed for Pain, Breakthrough. 120 Tab 0 8 Active [facility] SENNA 8.6 MG Tablet TAKE 2 TABLETS BY MOUTH EVERY EVENING FOR 10 DAYS NEEDED FOR CONSTIPATION 0 8 Active budesonide-formoter ol (SYMBICORT) 80-4.5 MCG/ACT inhaler Inhale 2 Puffs by mouth 2 times a day. 1 Inhaler 5 7 12/12/19 18 Discontinued PredniSONE (DELTASONE) 10 MG TabletIndications:C ough Take 4 pills x 2 days, 3 pills x 2 days, 2 pills x 2 days, 1 pill x 2 days 20 Tab 0 7 12/12/19 18 Discontinued as of this encounter Active [...] Hypoxemia 10/08/2011 10/30/2015 Genetic Sleep Disorder Research Other*[id number] 07/25/2011 05/15/2016 Obesity, morbid (more than 1 [...] Vital Sign Reading Time Taken Blood Pressure 124/60 12/11/2017 11:44 AM EST Pulse 80 12/11/2017 11:44 AM EST Temperature 36.4 C (97.6 F) 12/11/2017 1 1:44 AM EST Respiratory Rate 18 12/11/2017 11:4 4 AM EST Oxygen Saturation 90% 12/11/2017 11: 44 AM EST Inhaled Oxygen Concentration - - Weight 107 kg (235 lb 12.8 oz) 12/12/19 18 11:44 AM EST Height 165.1 cm (5' 5") 12/11/2017 11:4 4 AM EST Body Mass Index 39.24 12/11/2017 11:44 AM EST in this encounter Instructions * Patient Instructions - Renetta Gu LPN - 12/11/2017 11:42 AM EST Patient Instructions - Fall Prevention Remember to take your current medications as prescribed. In order to prevent falls, you are encouraged to: Exercise Utilize assistive/adaptive devices Avoid multifocal lenses when walking Avoid hazards in home Maintain a regular toileting schedule Any questions please contact our office. Preventing Falls in the Home As you get older, falls are more [...] Improve Balance, Flexibility, Strength, and Staying Power Certain types of exercises may help make [...] Moving Safely Using a Cane or Walker Keep the cane away from your feet [...] noted. Urinary Incontinence Plan of Care Documentation: Current medications reconciled. Patient encouraged to: Practice [...] (TEDs)if you have edema Renetta Gu LPN 12/11/2017 Kegel Exercises Kegel exercises dont require special [...] some helpful tips for your urinary incontinence: Practice kegal exercises Use the restroom every 2 hours [...] please feel free to contact our office. in this encounter Progress Notes * Marcela Pinto MD - 12/11/2017 11:49 AM EST Formatting of this note may be different from the original. HPI: Nina Harrington is a 77 year old female who presents with: Chief Complaint Patient presents with HOSPITAL FOLLOW-UP Pt is here for the hospital f/u. As per the review of the chart and discussion with the patient on November 20 the patient ended up going to [facility] emergency room for sudden onset of left lower quadrant abdominal pain and with history of multiple diverticulitis she decided to go to the hospital. Patient had labs, chest x-ray, EKG done. Labs overall stable with chest x-ray negative and EKG normal sinus rhythm. Patient also had a CT abdomen and pelvis done without contrast which showedsmall bowel obstruction at the distal jejunum/proximal ileum either due to focal incarcerated hernior additions along the anterior abdominal wall. Surgical consultation was recommended. Patient 's hemoglobin A1c was 6.3, C-reactive protein 2.43 slightly high, electrolytes normal with glucose 150. LFTs were normal. Lipase 38, magnesium 2.1. Patient had negative troponin dot patient 's B12 was 1086 which was high. Urine analysis was negative for leukocyte but had 4.9 RBC which was slightly high. Patient was later transferred to [facility] for surgical intervention for small bowel obstruction as listed above. As per the patient since she came home she is feeling better and has no significant abdominal pain,nausea or vomiting but she does have minimal swelling in both lower extremities. Denies any chest pain, new shortness of breath, palpitation, dizziness. No fever or chills. No blood in the stool. No urinary symptoms. Hemoglobin AIC Results: HEMOGLOBIN, [id number] LAB(%) [facility] Dt/ Resulted Value Status 11/20/17 11/21/17 6.3 FINAL HEMOGLOBIN, A1C(%) [facility] Dt/ Resulted Value Status 05/19/17 12:11P 05/19/17 5.9 FINAL 12/12/16 11:02A 12/12/16 6.3 FINAL Constipation off and on and takes miralax and senna tablet. Swealling in both legs. Reviewed all the medications and patient was not started on any new medication. 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 COPD, moderate (HCC) J44.9 Allergic rhinitis J30.9 Diverticulitis of colon K57.32 Nocturnal hypoxia G47.34 Sleep apnea, obstructive G47.33 Incisional hernia K43.2 ACEI/ARB contraindicated [id number] HTN, goal below 140/90 I10 Hyperlipidemia with target LDL less than 100 E78.5 Obesity, Class II, BMI 35.0-39.9, with comorbidity (see actual BMI) E66.9 Controlled substance agreement signed Z79.899 Type 2 diabetes mellitus with hemoglobin A1c goal of less than 7.5% ([facility]) E11.9 Hypercalcemia E83.52 Elevated plasma metanephrines R79.89 Lower GI bleed K92.2 Irritable bowel syndrome with constipation K58.1 Ischemic colitis ([facility]) K55.9 Current Outpatient Prescriptions Medication Sig [...] 4 TIMES A DAY 1 Inhaler 5 dicyclomine (BENTYL) 20 MG Tablet TAKE 1 [...] ondansetron ODT (ZOFRAN) [address] 1 Tab on tongue every 8 hours as needed for Nausea. DISSOLVE 1 TABLET IN MOUTH EVERY 8 HOURS NEEDED FOR NAUSEA 60 Tab 3 oxygen GAS Use 4 L/min(Oxygen) as [...] 1 TABLET EVERY DAY 90 Tab 1 [facility] SENNA 8.6 MG Tablet TAKE 2 TABLETS BY MOUTH EVERY EVENING FOR 10 DAYS NEEDED FOR CONSTIPATION 0 The patient's medication list was reviewed and updated as needed. Review of patient's allergies indicates: Allergen Reactions Diovan [Valsartan] Enalapril Escitalopram Oxalate Nausea/vomiting Nauseated Iodinated Diagnostic Agents Nausea/vomiting IV Contrast Lisinopril Metoprolol Tartrate Made pulse low [place] Oil-Black Currant-Vit E Verapamil Wellbutrin [Bupropion Hcl] Makes pt sick in the stomach Past Medical History: Diagnosis Date ACEI/ARB contraindicated Asthma Carpal tunnel syndrome DM type 2, goal: symptom mgmt (HCC) Generalized osteoarthritis HTN, goal below 140/90 Mixed dyslipidemia 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 Marital status: Spouse name: N/A Number of children: 6 Years of education: N/A 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 OBJECTIVE: BP 124/60 | Pulse 80 | Temp (Src) 97.6 (Tympanic) | Resp 18 | Ht 5' 5" (1.651m) | Wt 235 lbs 12.8 oz (106.958kg) | BMI 39.24 kg/m | BSA 2.22 m | SaO2 90% PHYSICAL EXAM: HEENT: PERRLA, EOMI, anicteric sclera, b/l tympanic membrane is pearly white, no erythema, no pharyngeal erythema, no lymphadenopathy, neck supple CVS: RRR, no murmurs, rubs or gallops, s1 s 2normal. RESP: clear to auscultation, no wheezing or crackles ABD: soft, NT/ND, scar from recent surgery, healing well. EXT: no edema, cyanosis, peripheral pulses palpable bilaterally No large joint swelling, no redness, range of motion normal. Skin normal. Gait normal. Mood stable No focal weakness ASSESSMENT AND PLAN: K56.609 Sbo (small bowel obstruction) (primary encounter diagnosis) S/p surgery. Z13.9 Risk and functional assessment Plan: Nursin. Pat scrn for fall risk 2. Pres or abs of urin incont as J45.909 Asthma with severity to be determined Well controlled. J44.9 Copd, moderate (hcc) E11.9 Type 2 diabetes mellitus with hemoglobin a1c goal of less than 7.5% ([facility]) G47.34 Nocturnal hypoxia Uses 4 liter oxygen at bedtime. G47.33 Sleep apnea, obstructive Uses Cpap machine. K55.9 Ischemic colitis (hcc) Follow up: Return in about 2 months (around 02/10/2018). in this encounter Nursing Notes * Renetta Gu LPN - 12/11/2017 11:42 AM EST Here for hospital follow up, feels better. Did have surgery at [facility]. Since surgery is having problems with edema in lower extremtities in this encounter Miscellaneous Notes * Addendum Note - Andi Hernandez, PBT - 12/11/2017 12:21 PM EST Addended by: ANDI HERNANDEZ on: 12/11/2017 12:21 PM Modules accepted: Orders in this encounter Plan of Treatment Upcoming Encounters Date Type Specialty Care Team Description 01/12/2018 Nutrition Services Gastroenterology Nita Enriquez, RDN [address] [place] [address] 01/16/2018 Office Visit Internal Medicine Marcela Pinto MD [address] [place] [address] [phone] 05/29/2018 Imaging Radiology [address] [place] [address] [phone] Pending Results Name Priority Associated Diagnoses Date/Ti me FERRITIN Routine Chronic fatigue Other iron deficiency anemia 12/11/2017 12:21 PM EST Scheduled Tests Name Priority Associated Diagnoses Order S chedule FERRITIN Routine Chronic fatigue Other iron deficiency anemia Expected: 12/11/2017 (Approximate), Expires: 12/11/2018 Health Maintenance Due Date Last Done Comments DTaP,Tdap,and Td Vaccines (1 - Tdap) 03/01/2009 02/28/2009 *ASTHMA ACTION PLAN-ADULT YEARLY 10/05/2014 *ADVANCE DIRECTIVE NOT ON FILE 11/03/2014 *SPIROMETRY MONITORING COMPL ETED IN PAST 2 YEARS FOR NON-SEVERE COPD 01/06/2017 DIABETES-FOOT EXAM 11/15/2017 11/15/2016, 0 02/23/2016, 03/28/2015, Additional history exists DIABETES-HGBA1C EVERY 6 MONTHS 05/20/2018 0 11/20/2017, 05/19/2017, 12/12/2016, Additional history exists DIABETES-LDL EVERY 12 MONTHS 06/23/201808/2017, 06/23/2017, 05/19/2017, Additional history exists DIABETES-EYE EXAM 08/04/2018 08/04/2017, , 09/23/2011, Additional history exists DIABETES-URINE MICROALBUMIN EVERY 12 MONTHS 11/20/2018 11/20/2017, 05/19/2017, 05/19/2017, Additional history exists DXA-EVERY 5 YRS-USE [...] on fileas of this encounter Results * MAGNESIUM (12/11/2017 12:18 PM) Component Value Ref Range MAGNESIUM 1.9 1.5 - 2.6 mg/dL Specimen Performing Laborator y [facility] [address] [place] [address] * CBC/DIFF (12/11/2017 12:18 PM) Component Value Ref Range WBC 9.47 4.00 - 10.80 K/u L RBC 4.15 3.85 - 5.15 M/uL HGB 11.7(L) 12.0 - 15.3 g/dL HCT 37.7 36.0 - 45.2 % MCV 90.8 81.5 - 97.5 fL MCH 28.2 27.0 - 34.0 pg MCHC 31.0(L) 32.0 - 36.0 g/dL RDW 14.5 11.5 - 15.5 % PLATELET COUNT 359 140 - 400 K/uL MPV 9.6 6.6 - 11.1 fL NEUTS 56.4 40 - 75 % LYMPHS 30.0 18 - 42 % MONOS 10.2 1 - 11 % EOS 3.0 0 - 6 % BASOS 0.4 0 - 2 % ABS. NEUTS 5.34 1.8 - 7.7 K/uL ABS. LYMPHS 2.84 1.0 - 4.8 K/uL ABS. MONOS 0.97 0.0 - 1.1 K/uL ABS. EOS 0.28 0.0 - 0.7 K/uL ABS. BASOS 0.04 0.0 - 0.2 K/uL Specimen Performing Laborator y [facility] [address] [place] [address] * BASIC METAB PANEL, [facility] (12/11/2017 12:18 PM) Component Value Ref Range BUN 14 6 - 20 mg/dL CREATININE 0.9 Comment: GFR should be used to assess renal function.Plasma/Serum creatinine may not be able to properly reflect renal function in some cases. 0.5 - 1.0 mg/dL SODIUM 140 135 - 146 mmol/L POTASSIUM 4.7 3.5 - 5.1 mmol/L CHLORIDE 100 98 - 107 mmol/L CO2 31 22 - 32 mmol/L ANION GAP 9 7 - 15 mmol/L GLUCOSE 122(H) 70 - 120 mg/dL CALCIUM 9.8 8.4 - 10.2 mg/dL E GLOM FILT RATE 58.5(L)Comment:If anita palacios is , multiply estimated GFR by 1.159. >60 Specimen Performing Laborator y [facility] [address] [place] [address] in this encounter Visit Diagnoses Diagnosis SBO (small bowel obstruction ) - Primary Unspecified intestinal obstruction Risk and functional assessme nt Screening for unspecified condition Asthma with severity to be d etermined COPD, moderate (HCC) Chronic airway obstruction, not elsewhere classified Type 2 diabetes mellitus wit h hemoglobin A1c goal of less than 7.5% (HCC) Nocturnal hypoxia Hypoxemia Sleep apnea, obstructive Obstructive sleep apnea (adult) (pediatric) Ischemic colitis (HCC) Unspecified vascular insufficiency of intestine Chronic fatigue Other malaise and fatigue Other iron deficiency anemia in this encounter Insurance Payer Benefit Plan / Group Subscriber ID Type Phone Address MEDICARE MEDICARE A AND B [id number] Medicare [place], [place] MEDICAID [place] Charly [facility] [id number] as of this encounter
--- OUTSIDE RECORDS SUMMARY | 2023-06-18 03:51 | External Medical Summary | Summary of Care ---
Author Name Unknown Organization [place] [address] Phone Care Team Providers Care Battery Assembler Plastic Name Role Phone Marcela Pinto MD Primary Care Provider [phone] Reason for Visit * Reason Comments HOSPITAL FOLLOW-UP Encounter Details Date Type Department Care Team Description 12/11/2017 Office Visit General Internal Medicine [facility] [address] [place] [address] Marcela Pinto MD [address] [place] [address] [phone] SBO (small bowel obstruction)*;Risk and functional assessment;Asthma with severity to be determined;COPD, moderate ([facility]);Type 2 diabetes mellitus with hemoglobin A1c goal of less than 7.5% ([facility]);Nocturnal hypoxia;Sleep apnea, obstructive;Ischemic colitis ([facility]);Chronic fatigue;Other iron deficiency anemia Allergies Active Allergy Reactions Severity Noted Date Comments Valsartan 07/10/2010 Enalapril 05/21/2006 Escitalopram Oxalate Nausea/vomiting 10/11/2009 Nauseated Iodinated Diagnostic Agents Nausea/vomiting 05/2010 IV Contrast Lisinopril 05/21/2006 Metoprolol Tartrate 11/18/2006 Made pulse low [place] Oil-Black Currant-Vit E 07/10/2010 Verapamil 03/21/2004 Bupropion [...] DilTIAZem HCl ER Coated Beads 360 MG [id number]:HTN , goal below 130/80 TAKE 1 CAPSULE [...] Hypoxemia 10/08/2011 10/30/2015 Genetic Sleep Disorder Research Other*[id number] 07/25/2011 05/15/2016 Obesity, morbid (more than 1 [...] 20 the patient ended up going to [facility] emergency room for sudden onset of left [...] slightly high. Patient was later transferred to [facility] for surgical intervention for small bowel obstruction [...] No urinary symptoms. Hemoglobin AIC Results: HEMOGLOBIN, [id number] LAB(%) [facility] Dt/ Resulted Value Status 11/20/17 11/21/17 6.3 FINAL HEMOGLOBIN, A1C(%) [facility] Dt/ Resulted Value Status 05/19/17 12:11P 05/19/17 [...] obstructive G47.33 Incisional hernia K43.2 ACEI/ARB contraindicated [id number] HTN, goal below 140/90 I10 Hyperlipidemia with [...] Contrast Lisinopril Metoprolol Tartrate Made pulse low [place] Oil-Black Currant-Vit E Verapamil Wellbutrin [Bupropion Hcl] Makes pt sick in the stomach Past Medical History: Diagnosis Date ACEI/ARB contraindicated Asthma Carpal tunnel syndrome DM type 2, goal: symptom mgmt (HCC) Generalized osteoarthritis HTN, goal below 140/90 Mixed dyslipidemia 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 Marital status: Spouse name: N/A Number of children: 6 Years of education: N/A 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 G47.33 Sleep apnea, obstructive Uses Cpap machine. K55.9 Ischemic colitis (hcc) Follow up: Return in about 2 months (around 02/10/2018). in this encounter Nursing Notes * Riccardo Renetta YoussefNICOL - 12/11/2017 11:42 AM EST Here for hospital follow up, feels better. Did have surgery at [facility] Since surgery is having problems with edema in lower extremtities in this encounter Plan of Treatment Upcoming Encounters Date Type Specialty Care Team Description 01/12/2018 Nutrition Services Gastroenterology Nita Enriquez, RDN [address] [place] [id number] 01/16/2018 Office Visit Internal Medicine Marcela Pinto MD [address] [place] [address] [phone] 05/29/2018 Imaging Radiology [address] [place] [address] [phone] Scheduled Tests Name Priority Associated Diagnoses Order S chedule BASIC METAB PANEL, BMP Routine Chronic fatigue Expected: 12/11/2017 (Approximate), Expires: 12/11/2018 CBC/DIFF Routine Chronic fatigue Other iron deficiency anemia Expected: 12/11/2017 (Approximate), Expires: 12/11/2018 FERRITIN Routine Chronic fatigue Other iron deficiency anemia Expected: 12/11/2017 (Approximate), Expires: 12/11/2018 MAGNESIUM Routine Chronic fatigue Expected: 12/11/2017 (Approximate), Expires: 12/11/2018 Health Maintenance [...] fileas of this encounter Visit Diagnoses Diagnosis SBO (small [...] Phone Address MEDICARE MEDICARE A AND B [id number] Medicare [place], [place] MEDICAID [place] [employer] [id number] as of this encounter
--- OUTSIDE RECORDS SUMMARY | 2023-06-18 03:51 | External Medical Summary | Summary of Care ---
Author Name Unknown Organization [place] [address] Phone Care Team Providers Care Salmon Gillnet Vessel Operator Name Role Phone Marcela Pinto MD Primary Care Provider [phone] Reason for Visit * Reason Comments ADVICE Encounter Details Date Type Department Care Team Description 09/08/2017 Telephone General Internal Medicine [facility] [address] [place] [address] Marcela Pinto MD [address] [place] [address] [phone] ADVICE Allergies Active Allergy Reactions Severity Noted Date Comments Valsartan 07/10/2010 Enalapril 05/21/2006 Escitalopram Oxalate Nausea/vomiting 10/11/2009 Nauseated Iodinated Diagnostic Agents Nausea/vomiting 05/2010 IV Contrast Lisinopril 05/21/2006 Metoprolol Tartrate 11/18/2006 Made pulse low [place] Oil-Black Currant-Vit E 07/10/2010 Verapamil 03/21/2004 Bupropion Hcl 10/30/2009 Makes pt sick in the stomach as of this encounter Medications Prescription Sig. Disp. Refills Start Date End Date Status CLONIDINE HCL 0.1 MG PO TABSIndications:HTN , goal below 130/80 One pill by mouth as needed for bp over 170/90 10 0 02/01/2010 Active VITAMIN D 1000 UNITS PO TABS one tablet daily 07/27/2012 Activ e LANCETS MISCIndications:DM type 2, [...] mouth daily. 100 Tab 3 03/16/2017 Active ondansetron ODT (ZOFRAN) 8 MG TBDPIndications:Dvaid sea Place 1 Tab on tongue every 8 hours as needed for Nausea. DISSOLVE 1 TABLET IN MOUTH EVERY 8 HOURS NEEDED FOR NAUSEA 60 Tab 3 03/20/2017 Active Multiple Vitamins-Minerals (ONE DAILY MULTIVITAMIN WOMEN) TABS one pill each day 04/21/2017 Active SENNA PLUS 8.6-50 MG per tablet TAKE 1 TABLET TWICE A DAY FOR CONSTIPATION 50 Tab 0 05/23/2017 Active furosemide (LASIX) 40 MG TabletIndications:E ssential hypertension with goal blood pressure less than 130/80 One pill daily as needed for edema. 30 Tab 11 06/09/2017 Active atorvaSTATin (LIPITOR) 20 MG Tablet Take 20 mg by mouth daily. Take 20 mg by mouth daily. 5 06/18/2017 Active COMBIVENT RESPIMAT 20-100 MCG/ACT InhalerIndications: Asthma with severity to be determined,COPD, moderate (HCC) TAKE 1 PUFF BY MOUTH 4 TIMES A DAY 1 Inhaler 5 08/12/2017 Active baclofen (LIORESAL) 10 MG TabletIndications:M id [...] 1 08/27/2017 Active zafirlukast (ACCOLATE) 20 MG TabletIndications:A sthma with severity to be determined TAKE 1 TABLET EVERY DAY 90 Tab 1 09/03/2017 Active as of this encounter Active Problems Problem Noted Date Ischemic colitis ([facility]) 10/01/2017 Lower GI bleed 04/21/2017 [...] Hypoxemia 10/08/2011 10/30/2015 Genetic Sleep Disorder Research Other*[id number] 07/25/2011 05/15/2016 Obesity, morbid (more than 1 00 lbs over ideal weight or BMI > 40) ([facility]) 01/09/2010 08/19/2017 Overview: Per Obesity [...] Given Next Due Hepatitis B, 20+ yrs 04/21/2017,03/20/2017 Pneumococcal Conjugate Vacc, 13 Valent (Prevnar) 03/28/2015 [...] Encounters Date Type Specialty Care Team Description 12/04/2017 Office Visit Internal Medicine Marcela Pinto MD [address] [place] [address] [phone] 01/16/2018 Office Visit Internal Medicine Marcela Pinto MD [address] [place] [address] [phone] 05/29/2018 Imaging Radiology [address] [place] [address] [phone] Health Maintenance Due Date Last Done Comments DTaP,Tdap,and Td Vaccines (1 - Tdap) 1947 *ASTHMA ACTION PLAN-ADULT YEARLY 10/05/2014 *ADVANCE DIRECTIVE [...] Phone Address MEDICARE MEDICARE A AND B [id number] Medicare [place], [place] MEDICAID DENISHA Parks [employer]GRAM [id number] as of this encounter
--- OUTSIDE RECORDS SUMMARY | 2023-06-18 03:51 | External Medical Summary ---
Author Name Unknown Address [address] [place], [place] [address] Phone Organization K09:[facility] [address] [place] [address] Laboratory Report Ordering Provider Test Date Status JOSE A JOHNSON 12/11/2017 12:18:00 Final Observation Date Value Abnormality Reference Status Magnesium 12/11/2017 13:31 1.9 1.5-2.6 Fin al Performing Location [facility] [place] [address] [place] [address]
--- OUTSIDE RECORDS SUMMARY | 2023-06-18 03:51 | External Medical Summary | Summary of Care ---
Author Name Unknown Organization [place] [address] Phone Care Team Providers Care Assistant Chief Of Police Name Role Phone Marcela Pinto MD Primary Care Provider [phone] Encounter Details Date Type Department Care Team Description 11/20/2017 Scan Encounter Unspecified Department <No scans attached> Allergies Active Allergy Reactions Severity Noted Date Comments Valsartan 07/10/2010 Enalapril 05/21/2006 Escitalopram Oxalate Nausea/vomiting 10/11/2009 Nauseated Iodinated Diagnostic Agents Nausea/vomiting 05/2010 IV Contrast Lisinopril 05/21/2006 Metoprolol Tartrate 11/18/2006 Made pulse low [place] Oil-Black Currant-Vit E 07/10/2010 Verapamil 03/21/2004 Bupropion [...] 03/16/2017 Active ondansetron ODT (ZOFRAN) 8 MG TBDPIndications:David [...] 1 09/03/2017 Active dicyclomine (BENTYL) 20 MG TabletIndications:C hronic constipation TAKE 1 TABLET BY MOUTH EVERY DAY 90 Tab 2 09/16/2017 Active glimepiride (AMARYL) 4 MG TabletIndications:T ype 2 diabetes mellitus with hemoglobin A1c goal of less than 7.5% ([facility]) TAKE 1 TABLET BY MOUTH IN THE MORNING AND 1/2 TABLET BY MOUTH IN THE EVENING 135 Tab 1 09/23/2017 Active KLOR-CON M20 20 MEQ TBCRIndications:HTN , goal below 140/90 TAKE 1 TABLET BY MOUTH DAILY 90 Tab 1 09/23/2017 Active Terazosin HCl 2 MG Capsule TAKE ONE CAPSULE BY MOUTH EVERY DAY 90 Cap 1 11/03/2017 Active DilTIAZem HCl ER Coated Beads 360 MG CO30Sfgzitnezoo:HTN , goal below 130/80 TAKE 1 CAPSULE EVERY DAY 90 Cap 1 11/07/2017 Active omeprazole (PRILOSEC) 20 MG CPDRIndications:Isc hemic colitis (HCC) TAKE 1 CAPSULE TWICE DAILY 180 Cap 1 11/18/2017 Active as of this encounter Active Problems [...] Hypoxemia 10/08/2011 10/30/2015 Genetic Sleep Disorder Research Other*[id number] 07/25/2011 05/15/2016 Obesity, morbid (more than 1 [...] Team Description 01/12/2018 Nutrition Services Gastroenterology Nita Enriquez RDN [address] [place] [address] 01/16/2018 Office Visit Internal Medicine [facility] MD [address] [facility] [address] 05/29/2018 Imaging Radiology Mammography1, [address] [place] [address] [phone] Health Maintenance Due Date Last Done Comments [...] Phone Address MEDICARE MEDICARE A AND B [id number] Medicare [place] MEDICAID DNEISHA Parks [facility] [id number] as of this encounter
--- OUTSIDE RECORDS SUMMARY | 2023-06-18 03:51 | External Medical Summary ---
Author Name Unknown Address [address] [place] [address] Phone Organization K09:[facility] [place] [address] [place] [address] Laboratory Report Ordering Provider Test Date Status JOSE A JOHNSON 12/11/2017 12:18:00 Final Observation Date Value Abnormality Reference Status BUN 12/11/2017 13:31 14 6-20 Fin al Creatinine 12/11/2017 13:31 0.9 0.5-1.0 Fi nal Performing Location [facility] [place] [address] [place] [address]
--- OUTSIDE RECORDS SUMMARY | 2023-06-18 03:51 | External Medical Summary | Summary of Care ---
Author Name Unknown Organization [place] [address] Phone Care Team Providers Care Telegrapher Agent Name Role Phone Marcela Pinto MD Primary Care Provider [phone] Encounter Details Date Type Department Care Team Description 06/05/2017 Scan Encounter Unspecified Department <No scans attached> Allergies Active Allergy Reactions Severity Noted Date Comments Valsartan 07/10/2010 Enalapril 05/21/2006 Escitalopram Oxalate Nausea/vomiting 10/11/2009 Nauseated Iodinated Diagnostic Agents Nausea/vomiting 05/2010 IV Contrast Lisinopril 05/21/2006 Metoprolol Tartrate 11/18/2006 Made pulse low [place] Oil-Black Currant-Vit E 07/10/2010 Verapamil 03/21/2004 Bupropion [...] FOR CONSTIPATION 50 Tab 0 05/23/2017 Active as of this encounter Active Problems [...] Hypoxemia 10/08/2011 10/30/2015 Genetic Sleep Disorder Research Other*[id number] 07/25/2011 05/15/2016 Obesity, morbid (more than 1 [...] 05/21/2006 Seasonal Influenza, Quadriva lent, No Preserve, IM [...] Description 01/12/2018 Nutrition Services Gastroenterology Nita Enriquez, AKIKO [address] [place] [address] 01/16/2018 Office Visit Internal Medicine Marcela Pinto MD [address] [place] [address] [phone] 05/29/2018 Imaging Radiology [address] [place] [id number] Health Maintenance Due Date Last Done Comments [...] Phone Address MEDICARE MEDICARE A AND B [id number] Medicare [place] MEDICAID DENISHA Parks [facility] [id number] as of this encounter
--- OUTSIDE RECORDS SUMMARY | 2023-06-18 03:51 | External Medical Summary | Summary of Care ---
Author Name Unknown Organization [facility] [address] Phone Care Team Providers Care Innovations Paraprofessional Name Role Phone Alex Pinto MD Primary Care Provider [phone] Reason for Visit * Reason Comments MEDICATION REFILL Encounter Details Date Type Department Care Team Description 2017 Refill General Internal Medicine [facility] [address] [place] [address] Alex Pinto MD [address] [place] [address] [phone] GENERAL OSTEOARTHROSIS Allergies Active Allergy Reactions Severity Noted Date Comments Valsartan 07/10/2010 Enalapril 05/21/2006 Escitalopram Oxalate Nausea/vomiting 10/11/2009 Nauseated Iodinated Diagnostic Agents Nausea/vomiting 05/2010 IV Contrast Lisinopril 05/21/2006 Metoprolol Tartrate 11/18/2006 Made pulse low [place] Oil-Black Currant-Vit E 07/10/2010 Verapamil 03/21/2004 [...] MOUTH DAILY 90 Tab 1 7 Active budesonide-formoter ol (SYMBICORT) 80-4.5 MCG/ACT inhaler Inhale 2 Puffs by mouth 2 times a day. 1 Inhaler 5 7 Active PredniSONE (DELTASONE) 10 MG TabletIndications:C ough Take 4 pills x 2 days, 3 pills x 2 days, 2 pills x 2 days, 1 pill x 2 days 20 Tab 0 7 Active Terazosin HCl 2 MG Capsule TAKE ONE CAPSULE BY MOUTH EVERY DAY 90 Cap 1 8 Active DilTIAZem HCl ER Coated Beads 360 MG IJ09Wcqchewetsf:HTN , goal below 130/80 TAKE 1 CAPSULE EVERY DAY 90 Cap 1 8 Active omeprazole (PRILOSEC) 20 MG CPDRIndications:Isc hemic colitis (HCC) TAKE 1 CAPSULE TWICE DAILY 180 Cap 1 8 Active HYDROcodone-acetami nophen 5-325 mg per tab 5-325 MG per tabletIndications:G eneralized osteoarthritis Take 1 Tab by mouth every 6 hours as needed for Pain, Breakthrough. 120 Tab 0 8 Active HYDROcodone-acetami nophen 5-325 mg per tab 5-325 MG per tabletIndications:G eneralized osteoarthritis Take 1 Tab by mouth every 6 hours as needed for Pain, Breakthrough. 120 Tab 0 8 12/01/19 18 Discontinued as of this encounter Active Problems Problem Noted Date Ischemic colitis (HCC) 10/01/2017 Lower GI bleed 04/21/2017 Irritable bowel syndrome with constipati on 04/21/2017 Elevated plasma metanephrines 02/20/2017 Type 2 diabetes mellitus with hemoglobin A1c goal of less than 7.5% ([facility]) 02/12/2017 Hypercalcemia 02/12/2017 Controlled substance agreement [...] of colon 07/25/2011 COPD, moderate ([facility]) 07/19/2011 Overview: Dr Bhatti every 6 months Allergic rhinitis 07/19/2011 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 Asthma with severity to be determined Carpal tunnel syndrome EDEMA dependent, ankles Generalized osteoarthritis ACEI/ARB contraindicated as of this encounter Resolved Problems Problem Noted Date Resolved Date DM (diabetes mellitus), type 2 ([facility]) 08/07/2015 06/25/2017 Nausea 09/05/2012 06/25/2017 Overview: ICD-10 update of inactive term HTN, GOAL BELOW 140/80 06/01/2012 6 Overview: Per HTN Protocol #27. Hypoxemia 10/08/2011 10/30/2015 Genetic Sleep Disorder Research Other*[id number] 07/25/2011 05/15/2016 Obesity, morbid (more than 1 00 lbs over ideal weight or BMI > 40) ([facility]) 01/09/2010 08/19/2017 Overview: Per Obesity Taxonomy [...] than 7.0% ([facility]) 08/10/2009 12/03/2012 Overview: Per Diabetes Taxonomy. ICD-10 update of inactive term Type 2 diabetes mellitus wit h hemoglobin A1c goal of less than 7.0% ([facility]) 08/10/2009 Overview: Per Diabetes Taxonomy. ICD-10 [...] t, with Preserve, 3yr & Above, Split 08/04/2014,07/26/2013,06/26/2012,07/14,08/16/2010,07/18/2009,09/01/20,08/12/2006 TD, Preservative Free 02/28/2009 Varicella Zoster Vaccine (Adult) 07/06/2012 as of this encounter 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 Tobacco Use Types Packs/Day Years Used Date Never Smoker Smokeless Tobacco: Never Used Alcohol Use Drinks/Week oz/Week Comments No Sex Assigned at Date Recorded Not on file as of this encounter Miscellaneous Notes * Telephone Encounter - Alex Pinto MD - 2017 2:23 PM EST Signed Prescriptions: Disp RefillsHYDROcodone-acetaminophen 5-325 mg per tab*120 Owu7Sct: Take 1 Tab by mouth every 6 hours as needed for Pain,Breakthrough. Authorizing Provider: ALEX PINTO * Telephone Encounter - Stacy Mejia, PHARM Student - 2017 11:50 AM EST I have reviewed the patients controlled substance dispensing history in the Prescription Drug Monitoring Program in compliance with the [place] regulations before prescribing a controlled substance. PDMP checked on 2017. Patient requesting: Hydrocodone/Acetaminophen 5/325 mg, filled 10/21/17, for #120 for a 30 day supply. Other recent controlled medication fills: Lorazepam 1 mg, filled 02/16/17, for #90 for a 45 day supply. Tramadol 50 mg, filled 01/09/17, for #30 for a 8 day supply. Medication due for refill: yes Please approve if appropriate. Thank you, Stacy Mejia, PharmD Refill Call Center * Telephone Encounter - Hiwot Riojas, pain management specialist - 2017 11:01 AM EST Pending Prescriptions: Disp Refills HYDROcodone-acetaminophen 5-325 mg per ta*120 Tab0 Sig: Take 1 Tab by mouth every 6 hours as needed for Pain, Breakthrough. Last Office Visit: 10/01/2017 Next Office Visit: 12/04/2017 Scheduled Provider(s): Alex Pinto MD If no future appointments scheduled, and last appointment is greater than a year ago, please schedule patient for a follow-up appointment Last date the medication was ordered: 10/21/17 Phone number(s): [phone] (home) Labs: CREATININE-OUTSIDE LAB(mg/dL) Jessica Dt/Tm Resulted Value Status 11/20/17 11/21/17 0.95 FINAL POTASSIUM-OUTSIDE LAB(mEq/L) Jessica Dt/Tm Resulted Value Status 11/20/17 11/21/17 3.9 FINAL ALT(U/L) Jessica Dt/Tm Resulted Value Status 07/30/17 2:19P 07/30/17 11 FINAL LDL (DIRECT MEASURE)(mg/dL) Jessica Dt/Tm Resulted Value Status 06/23/17 11:48A 06/23/17 100 FINAL TSH(uIU/mL) Jessica Dt/Tm Resulted Value Status 05/19/17 12:11P 05/19/17 0.88 FINAL Hemoglobin AIC Results: HEMOGLOBIN, [id number] LAB(%) Jessica Dt/Tm Resulted Value Status 11/20/17 11/21/17 6.3 FINAL HEMOGLOBIN, A1C(%) Jessica Dt/Tm Resulted Value Status 05/19/17 12:11P 05/19/17 5.9 FINAL 12/12/16 11:02A 12/12/16 6.3 FINAL in this encounter Plan of Treatment Upcoming Encounters Date Type Specialty Care Team Description 12/04/2017 Office Visit Internal Medicine Alex Pinto MD [address] [facility] [place] [address] [phone] 01/12/2018 Nutrition Services Gastroenterology Nita Enriquez, RDN [address] [facility] [place] [address] 01/16/2018 Office Visit Internal Medicine Alex Pinto MD [address] [facility] [place] [address] [phone] 05/29/2018 Imaging Radiology [address] [place] [address] [phone] Health Maintenance Due Date Last Done Comments DTaP,Tdap,and Td Vaccines (2 - Tdap) 03/28/2009 02/28/2009 *ASTHMA ACTION PLAN-ADULT YEARLY 10/05/2014 *ADVANCE [...] Generalized osteoarthrosis, unspecified site in this encounter Insurance Payer Benefit Plan / Group Subscriber ID Type Phone Address MEDICARE MEDICARE A AND B [id number] Medicare [place], [place] MEDICAID DENISHA Parks [facility] [id number] as of this encounter
--- OUTSIDE RECORDS SUMMARY | 2023-06-18 03:51 | External Medical Summary ---
Author Name Unknown Address [address] [id number] Phone Organization K01:[facility] [address] [place] [id number] Laboratory Report Ordering Provider Test Date Status JOSE A JOHNSON 12/11/2017 12:18:00 Final Observation Date Value Abnormality Reference Status Ferritin 12/11/2017 19:39 45.7 13-150 Fin al Performing Location [facility] [address] [place] [id number]
--- OUTSIDE RECORDS SUMMARY | 2023-06-18 03:51 | External Medical Summary | Summary of Care ---
Author Name Unknown Organization [place] [address] Phone Care Team Providers Care Surgical Appliance Fitter Name Role Phone Alex Pinto MD Primary Care Provider [phone] Reason for Visit * Reason Comments eRx-Medication Refill Encounter Details Date Type Department Care Team Description 12/16/2017 Refill General Internal Medicine [facility] [address] [place] [address] Alex Pinto MD [address] [place] [address] [phone] Nausea* Allergies Active Allergy Reactions Severity Noted Date Comments Valsartan 07/10/2010 Enalapril 05/21/2006 Escitalopram Oxalate Nausea/vomiting 10/11/2009 Nauseated Iodinated Diagnostic Agents Nausea/vomiting 05/2010 IV Contrast Lisinopril 05/21/2006 Metoprolol Tartrate 11/18/2006 Made pulse low [place] Oil-Black Currant-Vit E 07/10/2010 Verapamil 03/21/2004 Bupropion [...] than 7.0% ([facility]) USE TO TEST BLOOD [...] DilTIAZem HCl ER Coated Beads 360 MG QY33Ymouagitgjd:HTN , goal below 130/80 TAKE 1 CAPSULE [...] FOR NAUSEA 60 Tab 5 8 Active ondansetron ODT (ZOFRAN) 8 MG TBDPIndications:David sea Place 1 Tab on tongue every 8 hours as needed for Nausea. DISSOLVE 1 TABLET IN MOUTH EVERY 8 HOURS NEEDED FOR NAUSEA 60 Tab 3 7 12/17/19 18 Discontinued as of this encounter Active Problems Problem Noted Date Ischemic colitis (HCC) 10/01/2017 Lower GI bleed 04/21/2017 Irritable bowel syndrome with constipati on 04/21/2017 Elevated plasma metanephrines 02/20/2017 Type 2 diabetes mellitus with hemoglobin A1c goal of less than 7.5% ([facility]) 02/12/2017 Hypercalcemia 02/12/2017 Controlled [...] Date DM (diabetes mellitus), type 2 ([facility]) 08/07/2015 06/25/2017 Nausea 09/05/2012 06/25/2017 Overview: ICD-10 update of inactive term HTN, GOAL BELOW 140/80 06/01/2012 6 Overview: Per HTN Protocol #27. Hypoxemia 10/08/2011 10/30/2015 Genetic Sleep Disorder Research Other*[id number] 07/25/2011 05/15/2016 Obesity, morbid (more than 1 00 lbs over ideal weight or BMI > 40) ([facility]) 01/09/2010 08/19/2017 Overview: Per [...] than 7.0% ([facility]) 08/10/2009 12/03/2012 Overview: Per Diabetes Taxonomy. ICD-10 update of inactive term Type 2 diabetes mellitus wit h hemoglobin A1c goal of less than 7.0% ([facility]) 08/10/2009 Overview: Per Diabetes Taxonomy. [...] Telephone Encounter - Alex Pinto MD - 12/16/2017 1:46 PM EST Signed Prescriptions: Disp Refills ondansetron ODT (ZOFRAN) 8 MG TBDP 60 Tab 5 Sig: DISSOLVE 1 TABLET ON TONGUE EVERY 8 HOURS NEEDED FOR NAUSEA Authorizing Provider: ALEX PINTO * Telephone Encounter - Nicole Saeed LPN - 12/16/2017 1:18 PM EST Pending Prescriptions: Disp Refills ondansetron ODT (ZOFRAN) 8 MG TBDP [Pharm*60 Tab 5 Sig: DISSOLVE 1 TABLET ON TONGUE EVERY 8 HOURS NEEDED FOR NAUSEA * Telephone Encounter - Nicole Saeed LPN - 12/16/2017 1:17 PM EST Formatting of this note may be different from the original. Pending Prescriptions: Disp Refills ondansetron ODT (ZOFRAN) 8 MG TBDP [Pharm*60 Tab 5 Sig: DISSOLVE 1 TABLET ON TONGUE EVERY 8 HOURS NEEDED FOR NAUSEA Last Office Visit: 12/11/2017 Next Office Visit: 01/16/2018 Scheduled Provider(s): Alex Pinto MD Last date the medication was ordered: 03/20/17 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 COPD, moderate (HCC) J44.9 Allergic rhinitis J30.9 Diverticulitis of colon K57.32 Nocturnal hypoxia G47.34 Sleep apnea, obstructive G47.33 Incisional hernia K43.2 ACEI/ARB contraindicated [id number] HTN, goal below 140/90 I10 Hyperlipidemia with target LDL less than 100 E78.5 Obesity, Class II, BMI 35.0-39.9, with comorbidity (see actual BMI) E66.9 Controlled substance agreement signed Z79.899 Type 2 diabetes mellitus with hemoglobin A1c goal of less than 7.5% ([facility]) E11.9 Hypercalcemia E83.52 Elevated plasma metanephrines R79.89 Lower GI bleed K92.2 Irritable bowel syndrome with constipation K58.1 Ischemic colitis ([facility]) K55.9 Labs: CREATININE(mg/dL) Jessica Dt/Tm Resulted Value Status 12/11/17 12:18P 12/11/17 0.9 FINAL POTASSIUM(mmol/L) Jessica Dt/Tm Resulted Value Status 12/11/17 12:18P 12/11/17 4.7 FINAL TSH(uIU/mL) Jessica Dt/Tm Resulted Value Status 05/19/17 12:11P 05/19/17 0.88 FINAL LDL (CALCULATED)(mg/dL) Jessica Dt/Tm Resulted Value Status 06/23/17 11:48A 06/23/17 116 FINAL LDL (DIRECT MEASURE)(mg/dL) Jessica Dt/Tm Resulted Value Status 06/23/17 11:48A 06/23/17 100 FINAL ALT(U/L) Jessica Dt/Tm Resulted Value Status 07/30/17 2:19P 07/30/17 11 FINAL Hemoglobin AIC Results: HEMOGLOBIN, [id number] LAB(%) Jessica Dt/Tm Resulted Value Status 11/20/17 11/21/17 6.3 FINAL HEMOGLOBIN, A1C(%) Jessica Dt/Tm Resulted Value Status 05/19/17 12:11P 05/19/17 5.9 FINAL 12/12/16 11:02A 12/12/16 6.3 FINAL in this encounter Plan of Treatment Upcoming Encounters Date Type Specialty Care Team Description 01/12/2018 Nutrition Services Gastroenterology Nita Enriquez, AKIKO [address] [place] [address] 01/16/2018 Office Visit Internal Medicine Alex Pinto MD 200 [facility] [place] [address] 05/29/2018 Imaging Radiology [address] [place] [address] [phone] Health Maintenance Due Date Last Done Comments [...] Nausea - Primary Nausea alone in this encounter Insurance Payer Benefit Plan / Group Subscriber ID Type Phone Address MEDICARE MEDICARE A AND B [id number] Medicare [place], [place] MEDICAID DENISHA Parks PROGRAM [id number] as of this encounter
--- OUTSIDE RECORDS SUMMARY | 2023-06-18 03:51 | External Medical Summary ---
Author Name Unknown Address [address] [place] [address] Phone Organization K09:[facility] [address] [place] [address] Laboratory Report Ordering Provider Test Date Status JOSE A JOHNSON 12/11/2017 12:18:00 Final Observation Date Value Abnormality Reference Status WBC, Total 12/11/2017 12:30 9.47 4.00-10.80 F inal RBC 12/11/2017 12:30 4.15 3.85-5.15 Fin al Hemoglobin 12/11/2017 12:30 11.7 Below low normal 12.0- 15.3 Final HCT 12/11/2017 12:30 37.7 36.0-45.2 Fin al MCV 12/11/2017 12:30 90.8 81.5-97.5 Fin al MCH 12/11/2017 12:30 28.2 27.0-34.0 Fin al MCHC 12/11/2017 12:30 31.0 Below low normal 32.0-3 6.0 Final RDW 12/11/2017 12:30 14.5 11.5-15.5 Fin al Platelets 12/11/2017 12:30 359 140-400 Fin al MPV 12/11/2017 12:30 9.6 6.6-11.1 Fin al Segs 12/11/2017 12:30 56.4 40-75 Fin al Lymphs % 12/11/2017 12:30 30.0 18-42 Fin al Monos 12/11/2017 12:30 10.2 1-11 Fin al Eosinophils 12/11/2017 12:30 3.0 0-6 F inal Basos 12/11/2017 12:30 0.4 0-2 Fin al Absolute Segs 12/11/2017 12:30 5.34 1.8-7.7 Final Lymphs, absolute 12/11/2017 12:30 2.84 1.0-4. 8 Final Monos, Abs 12/11/2017 12:30 0.97 0.0-1.1 Fi nal Renate, Abs 12/11/2017 12:30 0.28 0.0-0.7 Fin vijaya Leeos, Abs 12/11/2017 12:30 0.04 0.0-0.2 Fi nal Performing Location [facility] [address] [place] [address]
--- OUTSIDE RECORDS SUMMARY | 2023-06-18 03:51 | External Medical Summary | Summary of Care ---
Author Name Unknown Organization [place] [address] Phone Care Team Providers Care Cut Off Saw Operator Pipe Blanks Name Role Phone Alex Pinto MD Primary Care Provider [phone] Reason for Visit * Reason Comments MEDICATION REFILL Encounter Details Date Type Department Care Team Description 01/05/2018 Refill General Internal Medicine [facility] [address] [place] [address] Alex Pinto MD [address] [place] [address] [phone] GENERAL OSTEOARTHROSIS Allergies Active Allergy Reactions Severity Noted Date Comments Valsartan 07/10/2010 Enalapril 05/21/2006 Escitalopram Oxalate Nausea/vomiting 10/11/2009 Nauseated Iodinated Diagnostic Agents Nausea/vomiting 05/2010 IV Contrast Lisinopril 05/21/2006 Metoprolol Tartrate 11/18/2006 Made pulse low [place] Oil-Black Currant-Vit E 07/10/2010 Verapamil 03/21/2004 Bupropion [...] DilTIAZem HCl ER Coated Beads 360 MG NP49Hllfajvawhr:HTN , goal below 130/80 TAKE 1 CAPSULE [...] FOR NAUSEA 60 Tab 5 8 Active HYDROcodone-acetami nophen 5-325 mg per tab 5-325 MG per tabletIndications:G eneralized osteoarthritis Take 1 Tab by mouth every 6 hours as needed for Pain, Breakthrough. 120 Tab 0 8 Active HYDROcodone-acetami nophen 5-325 mg per tab 5-325 MG per tabletIndications:G eneralized osteoarthritis Take 1 Tab by mouth every 6 hours as needed for Pain, Breakthrough. 120 Tab 0 8 01/06/20 18 Discontinued as of this encounter Active [...] Hypoxemia 10/08/2011 10/30/2015 Genetic Sleep Disorder Research Other*[id number] 07/25/2011 05/15/2016 Obesity, morbid (more than 1 [...] Telephone Encounter - Alex Pinto MD - 01/05/2018 2:20 PM EDT Signed Prescriptions: Disp RefillsHYDROcodone-acetaminophen 5-325 mg per tab*120 Zts6Fdt: Take 1 Tab by mouth every 6 hours as needed for Pain,Breakthrough. Authorizing Provider: ALEX PINTO * Telephone Encounter - Pepito Shields RP - 01/05/2018 1:33 PM EDT I have reviewed the patients controlled substance dispensing history in the Prescription Drug Monitoring Program in compliance with the [facility] regulations before prescribing a controlled substance. PDMP checked on 01/05/2018. Patient requesting: Hydrocodone-APAP 5-325mg, filled 2017, for #120 for a 30 day supply. Other recent controlled medication fills: Lorazepam 1mg, filled 02/16/2017, for #90 for a 45 day supply. Medication due for refill: Yes Please approve if appropriate. Pepito Shields [facility], PharmD Staff Pharmacist Pharmacy Refill Call Center [phone] 01/05/2018,1:34 PM * Telephone Encounter - Joyce Ponce OSA - 01/05/2018 10:48 AM EDT Formatting of this note may be different from the original. Pending Prescriptions: Disp Refills HYDROcodone-acetaminophen 5-325 mg per ta*120 Tab0 Sig: Take 1 Tab by mouth every 6 hours as needed for Pain, Breakthrough. Last Office Visit: 12/11/2017 Next Office Visit: 01/16/2018 Scheduled Provider(s): Alex Pinto MD If no future appointments scheduled, and last appointment is greater than a year ago, please schedule patient for a follow-up appointment Last date the medication was ordered: 2017 Patient Phone Numbers Labs: Lab Results Component Value Date/Time CREAT 0.9 12/11/2017 12:18 PM POTASSIUM 4.7 12/11/2017 12:18 PM TSH 0.88 05/19/2017 12:11 PM LDLCALC 116 06/23/2017 11:48 AM LDLDIRECT 100 06/23/2017 11:48 AM ALT 11 07/30/2017 02:19 PM HGBA1C 6.3 11/20/2017 HGBA1C 5.9 05/19/2017 12:11 PM Roxana Jaimes Industry Analyst Pharmacy Refill Call Center 01/05/2018,10:48 AM in this encounter Plan of Treatment Upcoming Encounters Date Type Specialty Care Team Description 01/12/2018 Nutrition Services Gastroenterology Nita Enriquez, RDN [address] [facility] [address] 01/16/2018 Office Visit Internal Medicine Alex Pinto MD 200 [facility] [place] [address] [phone] 05/29/2018 Imaging Radiology [address] [place] [address] [phone] Health Maintenance Due Date Last Done Comments [...] Phone Address MEDICARE MEDICARE A AND B [id number] [facility] DENISHA Parks [facility] [id number] as of this encounter
--- OUTSIDE RECORDS SUMMARY | 2023-06-18 03:51 | External Medical Summary | Summary of Care ---
Author Name Unknown Organization [place] [address] Phone Care Team Providers Care Shower Screen Installer Name Role Phone Marcela Pinto MD Primary Care Provider [phone] Encounter Details Date Type Department Care Team Description 2017 Scan Encounter Unspecified Department <No scans attached> Allergies Active Allergy Reactions Severity Noted Date Comments Valsartan 07/10/2010 Enalapril 05/21/2006 Escitalopram Oxalate Nausea/vomiting 10/11/2009 Nauseated Iodinated Diagnostic Agents Nausea/vomiting 05/2010 IV Contrast Lisinopril 05/21/2006 Metoprolol Tartrate 11/18/2006 Made pulse low [place] [...] 03/16/2017 Active ondansetron ODT (ZOFRAN) 8 MG TBDPIndications:Marvin ea Place 1 Tab on tongue every 8 [...] 5 06/18/2017 Active COMBIVENT RESPIMAT 20-100 MCG/ACT InhalerIndications:A sthma with severity to be determined,COPD, moderate (HCC) TAKE 1 PUFF BY MOUTH 4 TIMES A DAY 1 Inhaler 5 08/12/2017 Active baclofen (LIORESAL) 10 MG TabletIndications:Mi d [...] MOUTH DAILY 90 Tab 1 09/23/2017 Active budesonide-formotero l (SYMBICORT) 80-4.5 MCG/ACT inhaler Inhale 2 Puffs by mouth 2 times a day. 1 Inhaler 5 10/01/2017 Active PredniSONE (DELTASONE) 10 MG TabletIndications:Co ugh Take 4 pills x 2 days, 3 pills x 2 days, 2 pills x 2 days, 1 pill x 2 days 20 Tab 0 10/01/2017 Active Terazosin HCl 2 MG Capsule TAKE ONE CAPSULE BY MOUTH EVERY DAY 90 Cap 1 11/03/2017 Active DilTIAZem HCl ER Coated Beads 360 MG SM38Mawhcinzjcc:HTN, goal below 130/80 TAKE 1 CAPSULE EVERY DAY 90 Cap 1 11/07/2017 Active omeprazole (PRILOSEC) 20 MG CPDRIndications:Isch emic colitis ([facility]) TAKE 1 CAPSULE TWICE DAILY 180 Cap 1 11/18/2017 Active HYDROcodone-acetamin ophen 5-325 mg per tab 5-325 MG per tabletIndications:Ge neralized osteoarthritis Take 1 Tab by mouth every 6 hours as needed for Pain, Breakthrough. 120 Tab 0 2017 Active as of this encounter Active Problems Problem Noted Date Ischemic colitis ([facility]) 10/01/2017 Lower GI bleed 04/21/2017 Irritable bowel syndrome with constipati on 04/21/2017 Elevated plasma metanephrines 02/20/2017 Type 2 diabetes mellitus with hemoglobin A1c goal of less than 7.5% ([facility]) 02/12/2017 Hypercalcemia 02/12/2017 Controlled substance [...] Diverticulitis of colon 07/25/2011 COPD, moderate ([facility]) 07/19/2011 Overview: Dr Bhatti every 6 months Allergic rhinitis 07/19/2011 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 Asthma with severity to be determined Carpal tunnel syndrome EDEMA dependent, ankles Generalized osteoarthritis ACEI/ARB contraindicated as of this encounter Resolved Problems Problem Noted Date Resolved Date DM (diabetes mellitus), type 2 ([facility]) 08/07/2015 06/25/2017 Nausea 09/05/2012 06/25/2017 Overview: ICD-10 update of inactive term HTN, GOAL BELOW 140/80 06/01/2012 6 Overview: Per HTN Protocol #27. Hypoxemia 10/08/2011 10/30/2015 Genetic Sleep Disorder Research Other*[id number] 07/25/2011 05/15/2016 Obesity, morbid (more than 1 [...] less than 7.0% ([facility]) 08/10/2009 12/03/2012 Overview: Per Diabetes Taxonomy. ICD-10 update of inactive term Type 2 diabetes mellitus wit h hemoglobin A1c goal of less than 7.0% ([facility]) 08/10/2009 Overview: Per Diabetes Taxonomy. [...] Medicine Marcela Pinto MD [address] [place] [address] [phone] 01/12/2018 Nutrition Services Gastroenterology Nita Enriquez, RDN [address] [place] [address] 01/16/2018 Office Visit Internal Medicine Marcela Pinto MD [address] [facility] [address] [phone] 05/29/2018 Imaging Radiology [address] [place] [id number] Health Maintenance Due Date Last Done Comments [...] Phone Address MEDICARE MEDICARE A AND B [id number] Medicare [place], [place] MEDICAID DENISHA Parks [facility] [id number] as of this encounter
--- OUTSIDE RECORDS SUMMARY | 2023-06-18 03:51 | External Medical Summary | Summary of Care ---
Author Name Unknown Organization [place] [address] Phone Care Team Providers Care Tool Room Attendant Name Role Phone Marcela Pinto MD Primary Care Provider [phone] Reason for Visit * Reason Comments HOSPITAL FOLLOW-UP Encounter Details Date Type Department Care Team Description 12/11/2017 Office Visit General Internal Medicine [facility] [address] [place] [address] Marcela Pinto MD [address] [place] [address] [phone] SBO (small bowel obstruction)*;Risk and functional assessment;Asthma with severity to be determined;COPD, moderate ([facility]);Type 2 diabetes mellitus with hemoglobin A1c goal of less than 7.5% ([facility]);Nocturnal hypoxia;Sleep apnea, obstructive;Ischemic colitis ([facility]);Chronic fatigue;Other iron deficiency anemia Allergies Active Allergy Reactions Severity Noted Date Comments Valsartan 07/10/2010 Enalapril 05/21/2006 Escitalopram Oxalate Nausea/vomiting 10/11/2009 Nauseated Iodinated Diagnostic Agents Nausea/vomiting 05/2010 IV Contrast Lisinopril 05/21/2006 Metoprolol Tartrate 11/18/2006 Made pulse low [place] Oil-Black Currant-Vit E 07/10/2010 Verapamil 03/21/2004 Bupropion [...] DilTIAZem HCl ER Coated Beads 360 MG [id number]:HTN , goal below 130/80 TAKE 1 CAPSULE [...] of less than 7.5% ([facility]) 02/12/2017 Hypercalcemia 02/12/2017 Controlled substance agreement signed [...] Diverticulitis of colon 07/25/2011 COPD, moderate ([facility]) 07/19/2011 Overview: Dr Bhatti every 6 months Allergic rhinitis 07/19/2011 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 Asthma with severity to be determined Carpal tunnel syndrome EDEMA dependent, ankles Generalized osteoarthritis ACEI/ARB contraindicated as of this encounter Resolved Problems Problem Noted Date Resolved Date DM (diabetes mellitus), type 2 ([facility]) 08/07/2015 06/25/2017 Nausea 09/05/2012 06/25/2017 Overview: ICD-10 update of inactive term HTN, GOAL BELOW 140/80 06/01/2012 6 Overview: Per HTN Protocol #27. Hypoxemia 10/08/2011 10/30/2015 Genetic Sleep Disorder Research Other*[id number] 07/25/2011 05/15/2016 Obesity, morbid (more than 1 00 lbs over ideal weight or BMI > 40) ([facility]) 01/09/2010 08/19/2017 Overview: Per Obesity Taxonomy HTN, [...] 7.0% ([facility]) 08/10/2009 12/03/2012 Overview: Per Diabetes Taxonomy. ICD-10 update of inactive term Type 2 diabetes mellitus wit h hemoglobin A1c goal of less than 7.0% ([facility]) 08/10/2009 Overview: Per Diabetes Taxonomy. ICD-10 update [...] 20 the patient ended up going to [facility] emergency room for sudden onset of left [...] slightly high. Patient was later transferred to [facility] for surgical intervention for small [...] No urinary symptoms. Hemoglobin AIC Results: HEMOGLOBIN, [id number] LAB(%) [facility] Dt/ Resulted Value Status 11/20/17 11/21/17 6.3 FINAL HEMOGLOBIN, A1C(%) [facility] Dt/ Resulted Value Status 05/19/17 12:11P [...] obstructive G47.33 Incisional hernia K43.2 ACEI/ARB contraindicated [id number] HTN, goal below 140/90 I10 Hyperlipidemia with target LDL less than 100 E78.5 Obesity, Class II, BMI 35.0-39.9, with comorbidity (see actual BMI) E66.9 Controlled substance agreement signed Z79.899 Type 2 diabetes mellitus with hemoglobin A1c goal of less than 7.5% ([facility]) E11.9 Hypercalcemia E83.52 Elevated plasma metanephrines R79.89 Lower GI bleed K92.2 Irritable bowel syndrome with constipation K58.1 Ischemic colitis ([facility]) K55.9 Current Outpatient Prescriptions Medication Sig Dispense [...] Contrast Lisinopril Metoprolol Tartrate Made pulse low [place] Oil-Black Currant-Vit E Verapamil Wellbutrin [Bupropion Hcl] Makes pt sick in the stomach Past Medical History: Diagnosis Date ACEI/ARB contraindicated Asthma Carpal tunnel syndrome DM type 2, goal: symptom mgmt (HCC) Generalized osteoarthritis HTN, goal below 140/90 Mixed dyslipidemia 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 Marital status: Spouse name: N/A Number of children: 6 Years of education: N/A Occupational History 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 G47.33 Sleep apnea, obstructive Uses Cpap machine. K55.9 Ischemic colitis (hcc) Follow up: Return in about 2 months (around 02/10/2018). in this encounter Nursing Notes * Renetta Gu LPN - 12/11/2017 11:42 AM EST Here for hospital follow up, feels better. Did have surgery at [facility]. Since surgery is having problems with edema in lower extremtities in this encounter Miscellaneous Notes * Addendum Note - Andi Hernandez, PBT - 12/11/2017 12:21 PM EST Addended by: ANDI HERNANDEZ on: 12/11/2017 12:21 PM Modules accepted: Orders in this encounter Plan of Treatment Upcoming Encounters Date Type Specialty Care Team Description 01/12/2018 Nutrition Services Gastroenterology Nita Enriquez, RDN [address] [place] [address] 01/16/2018 Office Visit Internal Medicine Marcela Pinto MD [address] [place], [place] [address] [phone] 05/29/2018 Imaging Radiology [address] [place] [address] [phone] Scheduled Tests Name Priority Associated Diagnoses Order [...] Phone Address MEDICARE MEDICARE A AND B [id number] Medicare [place], [place] MEDICAID DENISHA Parks [facility] [id number] as of this encounter
--- OUTSIDE RECORDS SUMMARY | 2023-06-18 03:51 | External Medical Summary | Summary of Care ---
Author Name Unknown Organization [place] [address] Phone Care Team Providers Care Package Lift Operator Name Role Phone Alex Pinto MD Primary Care Provider [phone] Reason for Visit * Reason Comments eRx-Medication Refill Encounter Details Date Type Department Care Team Description 01/09/2018 Refill General Internal Medicine [facility] [address] [place] [address] Alex Pinto MD [address] [place] [address] [phone] Asthma with severity to be determined;COPD, moderate ([facility]) Allergies Active Allergy Reactions Severity Noted Date Comments Valsartan 07/10/2010 Enalapril 05/21/2006 Escitalopram Oxalate Nausea/vomiting 10/11/2009 Nauseated Iodinated Diagnostic Agents Nausea/vomiting 05/2010 IV Contrast Lisinopril 05/21/2006 Metoprolol Tartrate 11/18/2006 Made pulse low [place] Oil-Black Currant-Vit E 07/10/2010 Verapamil 03/21/2004 Bupropion [...] mg by mouth daily. 5 7 Active baclofen (LIORESAL) 10 MG [...] DilTIAZem HCl ER Coated Beads 360 MG VW55Nnmckqimxkr:HTN , goal below 130/80 TAKE 1 CAPSULE [...] Pain, Breakthrough. 120 Tab 0 8 Active COMBIVENT RESPIMAT 20-100 MCG/ACT InhalerIndications: Asthma with severity to be determined,COPD, moderate (HCC) TAKE 1 PUFF BY MOUTH 4 TIMES A DAY 1 Inhaler 5 8 Active COMBIVENT RESPIMAT 20-100 MCG/ACT InhalerIndications: Asthma with severity to be determined,COPD, moderate (HCC) TAKE 1 PUFF BY MOUTH 4 TIMES A DAY 1 Inhaler 5 7 01/10/20 18 Discontinued as of this encounter Active [...] DM (diabetes mellitus), type 2 ([facility]) 08/07/2015 06/25/2017 Nausea 09/05/2012 06/25/2017 Overview: ICD-10 update of inactive term HTN, GOAL BELOW 140/80 06/01/2012 6 Overview: Per HTN Protocol #27. Hypoxemia 10/08/2011 10/30/2015 Genetic Sleep Disorder Research Other*[id number] 07/25/2011 05/15/2016 Obesity, morbid (more than 1 00 lbs over ideal weight or BMI > 40) ([facility]) 01/09/2010 08/19/2017 Overview: Per Obesity [...] of less than 7.0% ([facility]) 08/10/2009 12/03/2012 Overview: Per Diabetes Taxonomy. ICD-10 update of inactive term Type 2 diabetes mellitus wit h hemoglobin A1c goal of less than 7.0% ([facility]) 08/10/2009 Overview: Per Diabetes Taxonomy. [...] Telephone Encounter - Alex Pinto MD - 01/09/2018 3:19 PM EDT Signed Prescriptions: Disp Refills COMBIVENT RESPIMAT 20-100 MCG/ACT Inhaler 1 Inha*5 Sig: TAKE 1 PUFF BY MOUTH 4 TIMES A DAY Authorizing Provider: ALEX PINTO * Telephone Encounter - Wily Dickinson LPN - 01/09/2018 1:14 PM EDT Pending Prescriptions: Disp Refills COMBIVENT RESPIMAT 20-100 MCG/ACT Inhaler*1 Inha*5 Sig: TAKE 1 PUFF BY MOUTH 4 TIMES A DAY * Telephone Encounter - Svetlana Pederson LPN - 01/09/2018 10:46 AM EDT Pending Prescriptions: Disp Refills COMBIVENT RESPIMAT 20-100 MCG/ACT Inhaler*1 Inha*5 Sig: TAKE 1 PUFF BY MOUTH 4 TIMES A DAY * Telephone Encounter - Bg Svetlanalinda Silva LPN - 01/09/2018 10:45 AM EDT Formatting of this note may be different from the original. Pending Prescriptions: Disp Refills COMBIVENT RESPIMAT 20-100 MCG/ACT Inhaler* 5 Sig: TAKE 1 PUFF BY MOUTH 4 TIMES A DAY Last Office Visit: 12/11/2017 Next Office Visit: 01/16/2018 Scheduled Provider(s): Alex Pinto MD If no future appointments scheduled, and last appointment is greater than a year ago, please schedule patient for a follow-up appointment Last date the medication was ordered: 08/12/2017 Patient Phone Numbers Labs: Lab Results Component Value Date/Time CREAT 0.9 12/11/2017 12:18 PM POTASSIUM 4.7 12/11/2017 12:18 PM TSH 0.88 05/19/2017 12:11 PM LDLCALC 116 06/23/2017 11:48 AM LDLDIRECT 100 06/23/2017 11:48 AM ALT 11 07/30/2017 02:19 PM HGBA1C 6.3 11/20/2017 HGBA1C 5.9 05/19/2017 12:11 PM in this encounter Plan of Treatment Upcoming Encounters Date Type Specialty Care Team Description 01/16/2018 Office Visit Internal Medicine Alex Pinto MD [address] [place] [address] [phone] 01/19/2018 Nutrition Services Gastroenterology Nita Enriquez, AKIKO [address] [facility] [place] [address] 05/29/2018 Imaging Radiology [address] [place] [id number] Health Maintenance Due Date Last Done Comments [...] Phone Address MEDICARE MEDICARE A AND B [id number] Medicare [place], [place] MEDICAID [place] [facility] [employer] [id number] as of this encounter
--- OUTSIDE RECORDS SUMMARY | 2023-06-18 03:52 | External Medical Summary | Summary of Care ---
Author Name Unknown Organization [place] [address] Phone Care Team Providers Care Marker Maker Name Role Phone Marcela Pinto MD Primary Care Provider [phone] Encounter Details Date Type Department Care Team Description 11/26/2017 Scan Encounter Unspecified Department <No scans attached> [...] Glucose Blood (YEIMY COUNTOUR TEST) STRP R73.09/hgba1c 7.2Tests up to 3 times daily 100 Strip [...] 2 days 20 Tab 0 10/01/2017 Active HYDROcodone-acetamin ophen 5-325 mg per tab 5-325 MG per tabletIndications:Ge neralized osteoarthritis Take 1 Tab by mouth every 6 hours as needed for Pain, Breakthrough. 120 Tab 0 10/21/2017 Active Terazosin HCl 2 MG Capsule TAKE ONE CAPSULE BY MOUTH EVERY DAY 90 Cap 1 11/03/2017 Active DilTIAZem HCl ER Coated Beads 360 MG AE64Kmuaeeconmd:HTN, goal below 130/80 TAKE 1 CAPSULE EVERY DAY 90 Cap 1 11/07/2017 Active omeprazole (PRILOSEC) 20 MG CPDRIndications:Isch emic colitis ([facility]) TAKE 1 CAPSULE TWICE DAILY 180 [...] Hypoxemia 10/08/2011 10/30/2015 Genetic Sleep Disorder Research Other*[id number] 07/25/2011 05/15/2016 Obesity, morbid (more than 1 [...] Visit Internal Medicine Marcela Pinto MD 200 [place] [address] [phone] 01/16/2018 Office Visit Internal Medicine Marcela Pinto MD [address] [place] [address] [phone] 05/29/2018 Imaging Radiology [address] [place] [phone] Health Maintenance Due Date Last Done Comments *ASTHMA ACTION PLAN-ADULT YEARLY 10/05/2014 *ADVANCE DIRECTIVE [...] 11/20/2018 11/20/2017, 05/19/2017, 05/19/2017, Additional history exists TETANUS EVERY 10 YEARS-TDAP (BOOSTRIX OR ADACEL) SUGGESTED IF NOT RECEIVED IN THE PAST. 02/28/2019 02/28/2009 DXA-EVERY 5 YRS-USE SMARTSET # [id number] TO [...] Phone Address MEDICARE MEDICARE A AND B [id number] Medicare [place], [place] MEDICAID DENISHA Parks [facility] [id number] as of this encounter
--- OUTSIDE RECORDS SUMMARY | 2023-06-18 03:52 | External Medical Summary | Summary of Care ---
Author Name Unknown Organization [place] [address] Phone Care Team Providers Care Fast Food Team Member Name Role Phone Marcela Pinto MD Primary Care Provider [phone] Reason for Visit * Reason Comments FYI Encounter Details Date Type Department Care Team Description 08/05/2017 Telephone General Internal Medicine [facility] [address] [place] [address] Marcela Pinto MD [address] [place] [address] [phone] FYI Allergies Active Allergy Reactions Severity Noted Date Comments Valsartan 07/10/2010 Enalapril 05/21/2006 Escitalopram Oxalate Nausea/vomiting 10/11/2009 Nauseated Iodinated Diagnostic Agents Nausea/vomiting 05/2010 IV Contrast Lisinopril 05/21/2006 Metoprolol Tartrate 11/18/2006 Made pulse low [place] Oil-Black Currant-Vit E 07/10/2010 Verapamil 03/21/2004 Bupropion Hcl 10/30/2009 Makes pt sick in the stomach as of this encounter Medications Prescription Sig. Disp. Refills Start Date End Date Status CLONIDINE HCL 0.1 MG PO TABSIndications:H TN, goal below 130/80 One pill by mouth as needed for bp over 170/90 10 0 02/01/2010 Active VITAMIN D 1000 UNITS PO TABS one tablet daily 07/27/2012 Activ e LANCETS MISCIndications:D M type 2, goal A1c below 7 Use as directed to test blood sugar once daily--Dx code 250.00 100 Each 3 01/07/2013 Active SPIRIVA HANDIHALER 18 MCG IN CAPSIndications:A sthma, severity to be determined INHALE 1 CAPSULE [...] Active Potassium Chloride Annalisa ER 20 MEQ TBCRIndications:E ssential hypertension with goal blood pressure less [...] 0 Active Glucose Blood (YEIMY CONTOUR TEST) STRPIndications:T ype 2 diabetes mellitus with hemoglobin A1c goal of less than 7.0% ([facility]) USE TO TEST BLOOD SUGAR 4 TIMES A DAY FOR DIAGNOSIS CODE OF E11.9 100 Strip 5 02/25/2017 Active aspirin enteric coated 81 MG TBEC Take 1 Tab by mouth daily. 100 Tab 3 03/16/2017 Active ondansetron ODT (ZOFRAN) 8 MG TBDPIndications:N ausea Place 1 Tab on tongue every 8 [...] 0 05/23/2017 Active furosemide (LASIX) 40 MG TabletIndications :Essential hypertension with goal blood pressure less than 130/80 One pill daily as needed for edema. 30 Tab 11 06/09/2017 Active atorvaSTATin (LIPITOR) 20 MG Tablet Take 20 mg by mouth daily. Take 20 mg by mouth daily. 5 06/18/2017 Active albuterol sulfate (PROVENTIL) (2.5 MG/3ML) 0.083% nebulizer solutionIndicatio ns:Asthma with severity to be determined,COPD, moderate (HCC) USE ONE NEBULIZER TREATMENT TWICE A DAY NEEDED FOR WORSENING ASTHMA. J45.909, J44.9 225 mL 1 11/21/2016 08/26/20 17 Discontinued ipratropium-albut reg (COMBIVENT RESPIMAT) 20-100 MCG/ACT InhalerIndication s:Asthma with severity to be determined,COPD, moderate (HCC) TAKE 1 PUFF BY MOUTH 4 TIMES A DAY 1 Inhaler 5 12/05/2016 08/10/20 17 Discontinued dicyclomine (BENTYL) 20 MG TabletIndications :Chronic constipation TAKE 1 TABLET EVERY DAY 90 Tab 2 02/13/2017 09/16/20 17 Discontinued zafirlukast (ACCOLATE) 20 MG TabletIndications :Asthma with severity to be determined TAKE 1 TABLET EVERY DAY 90 Tab 1 03/13/2017 09/03/20 17 Discontinued traZODone (DESYREL) 50 MG TabletIndications :Primary insomnia Take 1 Tab by mouth at bedtime. 30 Tab 5 03/20/2017 08/19/20 17 Discontinued glimepiride (AMARYL) 4 MG Tablet TAKE 1 TABLET BY MOUTH IN THE MORNING AND 1/2 TABLET BY MOUTH IN THE EVENING 135 Tab 1 03/31/2017 09/20/20 17 Discontinued Terazosin HCl 2 MG Capsule Take 1 Cap by mouth daily. 90 Cap 1 04/29/2017 10/31/19 18 Discontinued omeprazole (PRILOSEC) 20 MG CPDR TAKE 1 CAPSULE TWICE DAILY 180 Cap 1 05/05/2017 11/17/19 18 Discontinued DilTIAZem HCl ER Coated Beads 360 MG [id number]:H TN, goal below 130/80 TAKE ONE CAPSULE BY MOUTH DAILY 90 Cap 1 05/12/2017 11/06/19 18 Discontinued ciprofloxacin (CIPRO) 500 MG TabletIndications :Abdominal pain, left lower quadrant Take 1 Tab by mouth every 12 hours for 10 days. 20 Tab 0 07/30/2017 08/09/20 17 metroNIDAZOLE (FLAGYL) 500 MG TabletIndications :Abdominal pain, left lower quadrant Take 1 Tab by mouth 3 times a day for 10 days. 30 Tab 0 07/30/2017 08/09/20 17 as of this encounter Active Problems Problem Noted Date Ischemic colitis ([facility]) 10/01/2017 Lower GI bleed 04/21/2017 Irritable bowel syndrome with constipati on 04/21/2017 Elevated plasma metanephrines 02/20/2017 Type 2 diabetes mellitus with hemoglobin A1c goal of less than 7.5% ([facility]) 02/12/2017 Hypercalcemia 02/12/2017 Controlled substance agreement signed [...] AHP Diverticulitis of colon 07/25/2011 COPD, moderate ([facility]) 07/19/2011 Overview: Dr Bhatti every 6 months Allergic rhinitis 07/19/2011 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 Asthma with severity to be determined Carpal tunnel syndrome EDEMA dependent, ankles Generalized osteoarthritis ACEI/ARB contraindicated as of this encounter Resolved Problems Problem Noted Date Resolved Date DM (diabetes mellitus), type 2 ([facility]) 08/07/2015 06/25/2017 Nausea 09/05/2012 06/25/2017 Overview: ICD-10 update of inactive term HTN, GOAL BELOW 140/80 06/01/2012 6 Overview: Per HTN Protocol #27. Hypoxemia 10/08/2011 10/30/2015 Genetic Sleep Disorder Research Other*[id number] 07/25/2011 05/15/2016 Obesity, morbid (more than 1 [...] less than 7.0% ([facility]) 08/10/2009 12/03/2012 Overview: Per Diabetes Taxonomy. ICD-10 update of inactive term Type 2 diabetes mellitus wit h hemoglobin A1c goal of less than 7.0% ([facility]) 08/10/2009 Overview: Per Diabetes Taxonomy. ICD-10 update [...] Medicine Marcela Pinto MD [address] [place] [address] [phone] 01/16/2018 Office Visit Internal Medicine Marcela Pinto MD [address] [facility] [place] [address] [phone] 05/29/2018 Imaging Radiology [address] [place] [id number] Health Maintenance Due Date Last Done Comments [...] Phone Address MEDICARE MEDICARE A AND B [id number] Medicare [place], [place] MEDICAID DENISHA Parks [facility] [id number] as of this encounter
--- OUTSIDE RECORDS SUMMARY | 2023-06-18 03:52 | External Medical Summary | Summary of Care ---
Author Name Unknown Organization [place] [address] Phone Care Team Providers Care Sheet Catcher Name Role Phone Marcela Pinto MD Primary Care Provider [phone] Reason for Visit * Reason Comments FOLLOW UP Encounter Details Date Type Department Care Team Description 10/01/2017 Office Visit General Internal Medicine [facility] [address] [place] [address] Kristal Duvall, [facility] [address] [place] [address] [phone] Cough*;COPD, moderate (HCC);Vaccine for viral hepatitis;Type 2 diabetes mellitus with hemoglobin A1c goal of less than 7.5% (HCC);HTN, goal below 140/90;Hyperlipidemia with target LDL less than 100;Ischemic colitis (HCC) Allergies Active Allergy Reactions Severity Noted Date Comments Valsartan 07/10/2010 Enalapril 05/21/2006 Escitalopram Oxalate Nausea/vomiting 10/11/2009 Nauseated Iodinated Diagnostic Agents Nausea/vomiting 05/2010 IV Contrast Lisinopril 05/21/2006 Metoprolol Tartrate 11/18/2006 Made pulse low [place] Oil-Black Currant-Vit E 07/10/2010 Verapamil 03/21/2004 Bupropion [...] TABS one pill each day 7 Active Terazosin HCl 2 MG Capsule Take 1 Cap by mouth daily. 90 Cap 1 7 Active omeprazole (PRILOSEC) 20 MG CPDR TAKE 1 CAPSULE TWICE DAILY 180 Cap 1 7 Active DilTIAZem HCl ER Coated Beads 360 MG NE23Ekjgywbabon:HTN , goal below 130/80 TAKE ONE CAPSULE BY MOUTH DAILY 90 Cap 1 7 Active SENNA PLUS 8.6-50 MG per [...] 2 days 20 Tab 0 7 Active HYDROcodone-acetami nophen 5-325 mg per tab 5-325 MG per tabletIndications:G eneralized osteoarthritis Take 1 Tab by mouth every 6 hours as needed for Pain, Breakthrough. 120 Tab 0 7 10/20/19 18 Discontinued traZODone (DESYREL) 50 MG TabletIndications:P rimary insomnia TAKE 1 TABLET BY MOUTH AT BEDTIME 30 Tab 5 7 10/01/20 17 Discontinued as of this encounter Active Problems [...] Hypoxemia 10/08/2011 10/30/2015 Genetic Sleep Disorder Research Other*[id number] 07/25/2011 05/15/2016 Obesity, morbid (more than 1 [...] 7.0% ([facility]) 08/10/2009 12/03/2012 Overview: Per Diabetes Taxonomy. ICD-10 update of inactive term Type 2 diabetes mellitus wit h hemoglobin A1c goal of less than 7.0% ([facility]) 08/10/2009 Overview: Per Diabetes Taxonomy. ICD-10 update [...] Vital Sign Reading Time Taken Blood Pressure 140/70 10/01/2017 11:07 AM EST Pulse 77 10/01/2017 11:07 AM EST Temperature 36.7 C (98 F) 10/01/2017 11: 07 AM EST Respiratory Rate 18 10/01/2017 11:0 7 AM EST Oxygen Saturation 89% 10/01/2017 11: 07 AM EST Inhaled Oxygen Concentration - - Weight 107.3 kg (236 lb 9.6 oz) 017 11:07 AM EST Height 165.1 cm (5' 5") 10/01/2017 11:0 7 AM EST Body Mass Index 39.37 10/01/2017 11:07 AM EST in this encounter Progress Notes * Kristal Duvall CRNP - 10/01/2017 11:20 AM EST Formatting of this note may be different from the original. Subjective: Nina Harrington is a 76 year old female. Chief Complaint Patient presents with FOLLOW UP HPI: Pt here with PMH as listed below who presents for routine f/u. Declines foot exam, has f/u with podiatry soon. She started with a cough yesterday. Finished previous abx to cover for pneumonia. Had improved. BP stable. No cp. Follows routinely with pulmonary, will recheck cxr today. Has had 02 at home-2L. No abdominal pain or change in stool. Weight stable. She denies other health complaints at this time. ROS: Denies syncope, fever, chills, GRAVES, stiff neck, swollen glands, myalgias,n/v/d, blood in stool,dysuria, hematuria, urgency frequency, hesitancy with urination, or weakness, numbness, tingling orswelling in the extremities. 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 COPD, moderate (HCC) J44.9 Allergic rhinitis J30.9 Diverticulitis of colon K57.32 Nocturnal hypoxia G47.34 Sleep apnea, obstructive G47.33 Incisional hernia K43.2 ACEI/ARB contraindicated [id number] HTN, goal below 140/90 I10 Hyperlipidemia with target LDL less than 100 E78.5 Obesity, Class II, BMI 35.0-39.9, with comorbidity (see actual BMI) E66.9 Controlled substance agreement signed Z79.899 Type 2 diabetes mellitus with hemoglobin A1c goal of less than 7.5% (HCC) E11.9 Hypercalcemia E83.52 Elevated plasma metanephrines R79.89 Lower GI bleed K92.2 Irritable bowel syndrome with constipation K58.1 Current Outpatient Prescriptions Medication Sig Dispense Refill budesonide-formoterol (SYMBICORT) 80-4.5 MCG/ACT inhaler Inhale 2 Puffs by mouth 2 times a day.1 Inhaler 5 glimepiride (AMARYL) 4 MG Tablet TAKE 1 TABLET BY MOUTH IN THE MORNING AND 1/2 TABLET BY MOUTH IN THE EVENING 135 Tab 1 KLOR-CON M20 20 MEQ TBCR TAKE 1 TABLET BY MOUTH DAILY 90 Tab 1 dicyclomine (BENTYL) 20 MG Tablet TAKE 1 TABLET BY MOUTH EVERY DAY 90 Tab 2 traZODone (DESYREL) 50 MG Tablet TAKE 1 TABLET BY MOUTH AT BEDTIME 30 Tab 5 HYDROcodone-acetaminophen 5-325 mg per tab 5-325 MG per tablet Take 1 Tab by mouth every 6 hours as needed for Pain, Breakthrough. 120 Tab 0 zafirlukast (ACCOLATE) 20 MG Tablet TAKE 1 TABLET EVERY DAY 90 Tab 1 albuterol sulfate (PROVENTIL) (2.5 MG/3ML) 0.083% nebulizer solution USE ONE NEBULIZER TREATMENT TWICE A DAY NEEDED FOR WORSENING ASTHMA. J45.909, J44.9 225 mL 1 baclofen (LIORESAL) 10 MG Tablet Take 1 Tab by mouth 2 times a day. 20 Tab 0 COMBIVENT RESPIMAT 20-100 MCG/ACT Inhaler TAKE 1 PUFF BY MOUTH 4 TIMES A DAY 1 Inhaler 5 atorvaSTATin (LIPITOR) 20 MG Tablet Take 20 mg by mouth daily. Take 20 mg by mouth daily. 5 furosemide (LASIX) 40 MG Tablet One pill daily as needed for edema. 30 Tab 11 SENNA PLUS 8.6-50 MG per tablet TAKE 1 TABLET TWICE A DAY FOR CONSTIPATION 50 Tab 0 DilTIAZem HCl ER Coated Beads 360 MG CP24 TAKE ONE CAPSULE BY MOUTH DAILY 90 Cap 1 omeprazole (PRILOSEC) 20 MG CPDR TAKE 1 CAPSULE TWICE DAILY 180 Cap 1 Terazosin HCl 2 MG Capsule Take 1 Cap by mouth daily. 90 Cap 1 Multiple Vitamins-Minerals (ONE DAILY MULTIVITAMIN WOMEN) TABS one pill each day aspirin enteric coated 81 MG TBEC Take 1 Tab by mouth daily. 100 Tab 3 ondansetron ODT (ZOFRAN) [address] 1 Tab on tongue every 8 hours as needed for Nausea. DISSOLVE 1 TABLET IN MOUTH EVERY 8 HOURS NEEDED FOR NAUSEA 60 Tab 3 Glucose Blood (YEIMY CONTOUR TEST) STRP USE TO TEST BLOOD SUGAR 4 TIMES A DAY FOR DIAGNOSIS CODE OF E11.9 100 Strip 5 diphenhydramine (BENADRYL) 25 MG Tablet Take by mouth once. Patient Allergic to IV Contrast (Radiologist Protocol) - Take Two tablets 1 hour before scan time with Prednisone. 2 Tab 0 polyethylene glycol 3350 (MIRALAX) 255 gram powder Take 17 g by mouth 2 times a day. One cap full in juice, to effect 1 stool per day. . 2 Bottle 3 Potassium Chloride Annalisa ER 20 MEQ TBCR One pill once daily as needed with lasix. 60 Tab 11 oxygen GAS Use 4 L/min(Oxygen) as directed. Glucose Blood (YEIMY COUNTOUR TEST) STRP R73.09/hgba1c 7.2 Tests up to 3 times daily 100 Strip 5 Probiotic Product (PROBIOTIC DAILY) Capsule Take 1 Cap by mouth daily. IRON 325 (65 FE) MG PO TABS 1 daily LUMIGAN 0.01 % OP SOLN INSTILL 1 DROP BY TOPICAL ROUTE EVERY BEDTIME 4 AZOPT 1 % OP SUSP INSTILL 1 DROP BY OPHTHALMIC ROUTE 2 TIMES EVERY DAY INTO BOTH EYES 4 XOPENEX HFA 45 MCG/ACT IN AERO [...] 1000 UNITS PO TABS one tablet daily CLONIDINE HCL 0.1 MG PO TABS One pill by mouth as needed for bp over 170/90 10 0 Review of patient's allergies indicates: Allergen Reactions Diovan [Valsartan] Enalapril Escitalopram Oxalate Nausea/vomiting Nauseated Iodinated Diagnostic Agents Nausea/vomiting IV Contrast Lisinopril Metoprolol Tartrate Made pulse low Arbuckle Oil-Black Currant-Vit E Verapamil Wellbutrin [Bupropion Hcl] Makes pt sick in the stomach Past Medical History: Diagnosis Date ACEI/ARB contraindicated Asthma Carpal tunnel syndrome DM type 2, goal: symptom mgmt (HCC) Generalized osteoarthritis HTN, goal below 140/90 Mixed dyslipidemia Past Surgical History: Procedure Laterality Date APPENDECTOMY W/OTHER PROCEDURE 1959 when removed gall bladder COLONOSCOPY, DIAGNOSTIC (RECTUM) 05/29/2016 poor prep, diverticulosis/[facility] COLONOSCOPY, DIAGNOSTIC (RECTUM) 06/05/2017 diverticulosis, repeat 3 yrs/[facility] COLONOSCOPY, W/BIOPSY 03/20/12 hyperplastic polyps rpt 3 years. EGD, FLEXIBLE, DIAGNOSTIC 04/29/2014 normal/inpt [facility] EGD, FLEXIBLE, DIAGNOSTIC 05/29/2016 fundic submucosal mass/[facility] EGD, FLEXIBLE,W/ENDOSCOPIC US 11/08/2016 inflammatory changes, stomach lesion, repeat EUS 1.5 yrs/[facility] INCISIONAL HERNIA REPAIR, LAP, REDUCIBLE 09/29/12 Repair of incarcerated supraumbilical (incisional) hernia with [facility] mesh 09/29/12 LIGATE/CUT OVIDUCT(S) REMOVAL OF TONSILS, AGE 12+ age 11 REMOVE GALLBLADDER 1959 SIGMOIDOSCOPY, DIAGNOSTIC 04/29/2014 stool in rectum/inpt [facility] 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, 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 Main Topics Smoking status: Never Smoker Smokeless tobacco: Never Used Alcohol use No Drug use: No Sexual activity: Not Currently Other Topics Concern Blood Transfusions No 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 Narrative OBJECTIVE: BP 140/70 | Pulse 77 | Temp (Src) 98 (Tympanic) | Resp 18 | Ht 5' 5" (1.651m) | Wt 236 lbs 9.6 oz (107.321kg) | BMI 39.37 kg/m | BSA 2.22 m | SaO2 89[on room air[% PHYSICAL EXAM: General: alert, no acute distress, well nourished and cooperative Heart: regular rate & rhythm Lungs: chest symmetric with normal AP diameter, no chest deformities noted, normal respiratory rateand rhythm, few scattered exp wheezes, otherwise lungs clear to auscultation Abdomen: abdomen soft, non-tender, normal bowel sounds and no masses or organomegaly Extremities: no edema, no skin discoloration Neuro Exam: alert & oriented x 3 with fluent speech, no focal motor/sensory deficits Skin: skin color, texture, turgor are normal ASSESSMENT/PLAN: R05 Cough (primary encounter diagnosis) Plan: Cxr 2 views ap/pa & lateral Prednisone 10 mg po tabs Sig:Take 4 pills x 2 days, 3 pills x 2 days, 2 pills x 2 days, 1 pill x 2 days J44.9 Copd, moderate (hcc) Plan: Cxr 2 views ap/pa & lateral Z23 Vaccine for viral hepatitis Plan: Hep b vaccine, 20+ yrs (3-dose) E11.9 Type 2 diabetes mellitus with hemoglobin a1c goal of less than 7.5% (hcc) I10 Htn, goal below 140/90 E78.5 Hyperlipidemia with target ldl less than 100 K55.9 Ischemic colitis (hcc) Stable chronic conditions. Continue present and f/u with pulm as scheduled. Has 02 for home use. Follow-up as needed for worsening symptoms or as directed with pcp. NIECY Eagle in this encounter Nursing Notes * Sisi Thomas LPN - 10/01/2017 11:20 AM EST Patient here for a follow up. Has had a cough that started yesterday. Declined foot exam, has podiatry appointment on 10/08/17. in this encounter Plan of Treatment Upcoming Encounters Date Type Specialty Care Team Description 11/25/2017 Nutrition Services Gastroenterology Christina Godfrey, RDN [address] [facility] [place] [address] [phone] 01/16/2018 Office Visit Internal Medicine Marcela Pinto MD [address] [place] [address] [phone] 05/29/2018 Imaging Radiology [address] [place] [phone] Health Maintenance Due Date Last Done Comments *ASTHMA ACTION PLAN-ADULT YEARLY 10/05/2014 *ADVANCE DIRECTIVE NOT ON FILE 11/03/2014 *SPIROMETRY MONITORING COMPL ETED IN PAST 2 YEARS FOR NON-SEVERE COPD 01/06/2017 DIABETES-FOOT EXAM 11/15/2017 11/15/2016, 0 02/23/2016, 03/28/2015, Additional history exists DIABETES-HGBA1C EVERY 6 MONTHS 11/19/2017 0 05/19/2017, 12/12/2016, 08/27/2016, Additional history exists DIABETES-URINE MICROALBUMIN EVERY 12 MONTHS 05/19/2018 05/19/2017, 05/19/2017, 02/24/2017, Additional history exists DIABETES-LDL EVERY 12 MONTHS 06/23/201808/2017, 06/23/2017, 05/19/2017, Additional history exists DIABETES-EYE EXAM 08/04/2018 08/04/2017, , 09/23/2011, Additional history exists TETANUS EVERY 10 YEARS-TDAP [...] on fileas of this encounter Results * CXR 2 VIEWS AP/PA & LATERAL (10/01/2017 11:43 AM) Specimen Performing Laborator y [facility] [address] [place] [id number] Narrative EXAM CHEST 2 VIEWS AP OR PA AND LATERAL- 10/01/2017 11:43 am HISTORY Worsening cough.Known asthma. TECHNIQUE PA and lateral upright views of the chest were obtained. COMPARISON CHEST 2 VIEWS AP OR PA AND LATERAL dated 08/29/2017; CHEST 2 VIEWS AP OR PA AND LATERAL dated 02/05/2017; CHEST 2 VIEWS AP OR PA AND LATERAL dated 08/27/2016 FINDINGS No visible internal lines or tubes. The cardiomediastinal silhouette is stable in size and contour, with unchanged enlargement of the pulmonary arteries. No significant central pulmonary vascular congestion or interstitial pulmonary edema.No focal pulmonary consolidation, pleural effusion, or pneumothorax. Multilevel degenerative changes in the spine. IMPRESSION 1. No acute cardiopulmonary process identified. 2. Unchanged enlargement of the pulmonary arteries suggestive of pulmonary hypertension. Authenticated By Authenticating DateAuthenticating TimeReading Providers(s) JENELLE VELAZQUEZ MD 10-01-2017 11:50JUSTANNA VELAZQUEZ MD Procedure Note Interface, Rad In - 10/01/2017 11:50 AM EST EXAM CHEST 2 VIEWS AP OR PA AND LATERAL- 10/01/2017 11:43 am HISTORY Worsening cough. Known asthma. TECHNIQUE PA and lateral upright views of the chest were obtained. COMPARISON CHEST 2 VIEWS AP OR PA AND LATERAL dated 08/29/2017; CHEST 2 VIEWS AP ORPA AND LATERAL dated 02/05/2017; CHEST 2 VIEWS AP OR PA AND LATERAL dated 08/27/2016 FINDINGS No visible internal lines or tubes. The cardiomediastinal silhouette is stable in size and contour, withunchanged enlargement of the pulmonary arteries. No significant central pulmonary vascular congestion orinterstitial pulmonary edema. No focal pulmonary consolidation, pleural effusion, or pneumothorax. Multileveldegenerative changes in the spine. IMPRESSION 1. No acute cardiopulmonary process identified. 2. Unchanged enlargement of the pulmonary arteries suggestive of pulmonaryhypertension. Authenticated By Authenticating Date AuthenticatingTime Reading Providers(s) JENELLE VELAZQUEZ MD 10-01-2017 11:50JUSTANNA VELAZQUEZ MD in this encounter Visit Diagnoses Diagnosis Cough - Primary COPD, moderate (HCC) Chronic airway obstruction, not elsewhere classified Vaccine for viral hepatitis Need for prophylactic vaccination and inoculation against viral hepatitis Type 2 diabetes mellitus wit h hemoglobin A1c goal of less than 7.5% (HCC) HTN, goal below 140/90 Unspecified essential hypertension Hyperlipidemia with target L DL less than 100 Other and unspecified hyperlipidemia Ischemic colitis (HCC) Unspecified vascular insufficiency of intestine in this encounter Insurance Payer Benefit Plan / Group Subscriber ID Type Phone Address MEDICARE MEDICARE A AND B [id number] Medicare [place], [place] MEDICAID DENISHA Parks [facility] [id number] as of this encounter
--- OUTSIDE RECORDS SUMMARY | 2023-06-18 03:52 | External Medical Summary | Summary of Care ---
Author Name Unknown Organization [place] [address] Phone Care Team Providers Care Seafood Preparer Name Role Phone Alex Pinto MD Primary Care Provider [phone] Reason for Visit * Reason Comments eRx-Medication Refill Encounter Details Date Type Department Care Team Description 10/31/2017 Refill General Internal Medicine [facility] [address] [place] [address] Alex Pinto MD [address] [place] [address] [phone] Allergies Active Allergy Reactions Severity Noted Date Comments Valsartan 07/10/2010 Enalapril 05/21/2006 Escitalopram Oxalate Nausea/vomiting 10/11/2009 Nauseated Iodinated Diagnostic Agents Nausea/vomiting 05/2010 IV Contrast Lisinopril 05/21/2006 Metoprolol Tartrate 11/18/2006 Made pulse low [place] Oil-Black Currant-Vit E 07/10/2010 Verapamil 03/21/2004 Bupropion [...] TABS one pill each day 7 Active omeprazole (PRILOSEC) 20 MG CPDR TAKE 1 CAPSULE TWICE DAILY 180 Cap 1 7 Active DilTIAZem HCl ER Coated Beads 360 MG QR85Zicnlsllgdv:HTN , goal below 130/80 TAKE ONE CAPSULE [...] 8 Active Terazosin HCl 2 MG Capsule Take 1 Cap by mouth daily. 90 Cap 1 7 10/31/19 18 Discontinued as of this encounter Active Problems Problem Noted Date Ischemic colitis (HCC) 10/01/2017 Lower GI bleed 04/21/2017 Irritable bowel syndrome with constipati on 04/21/2017 Elevated plasma metanephrines 02/20/2017 Type 2 diabetes mellitus with hemoglobin A1c goal of less than 7.5% ([facility]) 02/12/2017 Hypercalcemia 02/12/2017 Controlled substance agreement [...] of colon 07/25/2011 COPD, moderate ([facility]) 07/19/2011 Overview: Dr Bhatti every 6 months Allergic rhinitis 07/19/2011 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 Asthma with severity to be determined Carpal tunnel syndrome EDEMA dependent, ankles Generalized osteoarthritis ACEI/ARB contraindicated as of this encounter Resolved Problems Problem Noted Date Resolved Date DM (diabetes mellitus), type 2 ([facility]) 08/07/2015 06/25/2017 Nausea 09/05/2012 06/25/2017 Overview: ICD-10 update of inactive term HTN, GOAL BELOW 140/80 06/01/2012 6 Overview: Per HTN Protocol #27. Hypoxemia 10/08/2011 10/30/2015 Genetic Sleep Disorder Research Other*[id number] 07/25/2011 05/15/2016 Obesity, morbid (more than 1 00 lbs over ideal weight or BMI > 40) ([facility]) 01/09/2010 08/19/2017 Overview: Per Obesity [...] than 7.0% ([facility]) 08/10/2009 12/03/2012 Overview: Per Diabetes Taxonomy. ICD-10 update of inactive term Type 2 diabetes mellitus wit h hemoglobin A1c goal of less than 7.0% ([facility]) 08/10/2009 Overview: Per Diabetes Taxonomy. ICD-10 [...] Telephone Encounter - Alex Pinto MD - 11/03/2017 1:32 PM EST Signed Prescriptions: Disp Refills Terazosin HCl 2 MG Capsule 90 Cap 1 Sig: TAKE ONE CAPSULE BY MOUTH EVERY DAY Authorizing Provider: ALEX PINTO * Telephone Encounter - Marisa Vázquez LPN - 11/03/2017 11:15 AM EST Pending Prescriptions: Disp Refills Terazosin HCl 2 MG Capsule [Pharmacy Med *90 Cap 1 Sig: TAKE ONE CAPSULE BY MOUTH EVERY DAY * Telephone Encounter - Marisa Vázquez LPN - 11/03/2017 11:14 AM EST Pending Prescriptions: Disp Refills Terazosin HCl 2 MG Capsule [Pharmacy Med *90 Cap 1 Sig: TAKE ONE CAPSULE BY MOUTH EVERY DAY Last Office Visit: 10/01/2017 Next Office Visit: 01/16/2018 Scheduled Provider(s): Alex Pinto MD If no future appointments scheduled, and last appointment is greater than a year ago, please schedule patient for a follow-up appointment Last date the medication was ordered: 04/29/17 Phone number(s): [phone] (home) Labs: ALT(U/L) Jessica Dt/Tm Resulted Value Status 07/30/17 2:19P 07/30/17 11 FINAL CREATININE(mg/dL) Jessica Dt/Tm Resulted Value Status 07/30/17 2:19P 07/30/17 0.9 FINAL POTASSIUM(mmol/L) Jessica Dt/Tm Resulted Value Status 07/30/17 2:19P 07/30/17 4.2 FINAL LDL (DIRECT MEASURE)(mg/dL) Jessica Dt/Tm Resulted Value Status 06/23/17 11:48A 06/23/17 100 FINAL TSH(uIU/mL) Jessica Dt/Tm Resulted Value Status 05/19/17 12:11P 05/19/17 0.88 FINAL Hemoglobin AIC Results: HEMOGLOBIN, A1C(%) Jessica Dt/Tm Resulted Value Status 05/19/17 12:11P 05/19/17 5.9 FINAL 12/12/16 11:02A 12/12/16 6.3 FINAL 08/27/16 11:46A 08/27/16 6.9* FINAL in this encounter Plan of Treatment Upcoming Encounters Date Type Specialty Care Team Description 11/25/2017 Nutrition Services Gastroenterology Christina Godfrey, RDN [address] [facility] [place] [id number] 01/16/2018 Office Visit Internal Medicine Alex Pinto MD [address] [place] [address] [phone] 05/29/2018 Imaging Radiology [address] [place] [phone] Health Maintenance Due Date Last Done Comments [...] Phone Address MEDICARE MEDICARE A AND B [id number] Medicare [place], [place] MEDICAID DENISHA Parks [facility] [id number] as of this encounter
--- OUTSIDE RECORDS SUMMARY | 2023-06-18 03:52 | External Medical Summary | Summary of Care ---
Author Name Unknown Organization [place] [address] Phone Care Team Providers Care Financial Aid Administrator Name Role Phone Marcela Pinto MD Primary Care Provider [phone] Encounter Details Date Type Department Care Team [...] DilTIAZem HCl ER Coated Beads 360 MG [id number]:HTN, goal below 130/80 TAKE 1 CAPSULE EVERY DAY 90 Cap 1 11/07/2017 Active omeprazole (PRILOSEC) 20 MG CPDRIndications:Isch emic colitis ([facility]) TAKE 1 CAPSULE TWICE DAILY 180 Cap 1 11/18/2017 Active as of this encounter Active Problems Problem Noted Date Ischemic colitis ([facility]) 10/01/2017 Lower GI bleed 04/21/2017 Irritable bowel syndrome with constipati on 04/21/2017 Elevated plasma metanephrines 02/20/2017 Type 2 diabetes mellitus with hemoglobin A1c goal of less than 7.5% ([facility]) 02/12/2017 Hypercalcemia 02/12/2017 Controlled substance agreement signed [...] AHP Diverticulitis of colon 07/25/2011 COPD, moderate ([facility]) 07/19/2011 Overview: Dr Bhatti every 6 months Allergic rhinitis 07/19/2011 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 Asthma with severity to be determined Carpal tunnel syndrome EDEMA dependent, ankles Generalized osteoarthritis ACEI/ARB contraindicated as of this encounter Resolved Problems Problem Noted Date Resolved Date DM (diabetes mellitus), type 2 ([facility]) 08/07/2015 06/25/2017 Nausea 09/05/2012 06/25/2017 Overview: ICD-10 update of inactive term HTN, GOAL BELOW 140/80 06/01/2012 6 Overview: Per HTN Protocol #27. Hypoxemia 10/08/2011 10/30/2015 Genetic Sleep Disorder Research Other*[id number] 07/25/2011 05/15/2016 Obesity, morbid (more than 1 [...] 7.0% ([facility]) 08/10/2009 12/03/2012 Overview: Per Diabetes Taxonomy. ICD-10 update of inactive term Type 2 diabetes mellitus wit h hemoglobin A1c goal of less than 7.0% ([facility]) 08/10/2009 Overview: Per Diabetes Taxonomy. ICD-10 update [...] Services Gastroenterology Christina Godfrey, RDN [address] [facility] [place] [address] [phone] 01/16/2018 Office Visit Internal Medicine Marcela Pinto MD [address] [place] [address] [phone] 05/29/2018 Imaging Radiology [address] [place] [phone] Health Maintenance Due Date Last Done Comments [...] Phone Address MEDICARE MEDICARE A AND B [id number] Medicare [place], [place] MEDICAID DENISHA Parks [facility] [id number] as of this encounter
--- OUTSIDE RECORDS SUMMARY | 2023-06-18 03:52 | External Medical Summary | Summary of Care ---
Author Name Unknown Organization [place] [address] Phone Care Team Providers Care Director Quality Assurance Name Role Phone Marcela Pinto MD Primary Care Provider [phone] Encounter Details Date Type Department Care Team Description 11/20/2017 Result Scan Unspecified Department <No scans attached> Allergies Active Allergy Reactions Severity Noted Date Comments Valsartan 07/10/2010 Enalapril 05/21/2006 Escitalopram Oxalate Nausea/vomiting 10/11/2009 Nauseated Iodinated Diagnostic Agents Nausea/vomiting 05/2010 IV Contrast Lisinopril 05/21/2006 Metoprolol Tartrate 11/18/2006 Made pulse low [place] Oil-Black Currant-Vit E 07/10/2010 Verapamil 03/21/2004 Bupropion [...] [facility]) USE TO TEST BLOOD SUGAR 4 [...] DilTIAZem HCl ER Coated Beads 360 MG RE24Ldfsssppswk:HTN, goal below 130/80 TAKE 1 CAPSULE EVERY DAY 90 Cap 1 11/07/2017 Active omeprazole (PRILOSEC) 20 MG CPDRIndications:Isch emic colitis ([facility]) TAKE 1 CAPSULE TWICE DAILY 180 Cap 1 11/18/2017 Active as of this encounter Active Problems Problem Noted Date Ischemic colitis ([facility]) 10/01/2017 Lower GI bleed 04/21/2017 Irritable bowel syndrome with constipati on 04/21/2017 Elevated plasma metanephrines 02/20/2017 Type 2 diabetes mellitus with hemoglobin A1c goal of less than 7.5% ([facility]) 02/12/2017 Hypercalcemia 02/12/2017 Controlled substance agreement [...] of colon 07/25/2011 COPD, moderate ([facility]) 07/19/2011 Overview: Dr Bhatti every 6 months Allergic rhinitis 07/19/2011 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 Asthma with severity to be determined Carpal tunnel syndrome EDEMA dependent, ankles Generalized osteoarthritis ACEI/ARB contraindicated as of this encounter Resolved Problems Problem Noted Date Resolved Date DM (diabetes mellitus), type 2 ([facility]) 08/07/2015 06/25/2017 Nausea 09/05/2012 06/25/2017 Overview: ICD-10 update of inactive term HTN, GOAL BELOW 140/80 06/01/2012 6 Overview: Per HTN Protocol #27. Hypoxemia 10/08/2011 10/30/2015 Genetic Sleep Disorder Research Other*[id number] 07/25/2011 05/15/2016 Obesity, morbid (more than 1 [...] less than 7.0% ([facility]) 08/10/2009 12/03/2012 Overview: Per Diabetes Taxonomy. ICD-10 update of inactive term Type 2 diabetes mellitus wit h hemoglobin A1c goal of less than 7.0% ([facility]) 08/10/2009 Overview: Per Diabetes Taxonomy. ICD-10 [...] Services Gastroenterology Christina Godfrey, RDN [address] [facility] [place] [address] [phone] 01/16/2018 Office Visit Internal Medicine Marcela Pinto MD [address] [place] [address] [phone] 05/29/2018 Imaging Radiology [address] [place] [phone] Health Maintenance Due Date Last Done Comments [...] on fileas of this encounter Results * RADIOLOGY SCANNED RESULT (11/20/2017) * EKG SCANNED RESULT (11/20/2017) in this encounter Insurance Payer Benefit Plan / Group Subscriber ID Type Phone Address MEDICARE MEDICARE A AND B [id number] Medicare [place], [place] MEDICAID [place] [employer] [id number] as of this encounter
--- OUTSIDE RECORDS SUMMARY | 2023-06-18 03:52 | External Medical Summary | Summary of Care ---
Author Name Unknown Organization [place] [address] Phone Care Team Providers Care Severity Of Illness Coordinator Name Role Phone Marcela Pinto MD Primary Care Provider [phone] Encounter Details Date Type Department Care Team Description 11/20/2017 Scan Encounter Unspecified Department <No scans attached> Allergies Active Allergy Reactions Severity Noted Date Comments Valsartan 07/10/2010 Enalapril 05/21/2006 Escitalopram Oxalate Nausea/vomiting 10/11/2009 Nauseated Iodinated Diagnostic Agents Nausea/vomiting 05/2010 IV Contrast Lisinopril 05/21/2006 Metoprolol Tartrate 11/18/2006 Made pulse low [place] Oil-Black Currant-Vit E 07/10/2010 Verapamil 03/21/2004 Bupropion [...] DilTIAZem HCl ER Coated Beads 360 MG RQ43Ajpdyojmxol:HTN, goal below 130/80 TAKE 1 CAPSULE EVERY DAY 90 Cap 1 11/07/2017 Active omeprazole (PRILOSEC) 20 MG CPDRIndications:Isch emic colitis ([facility]) TAKE 1 CAPSULE TWICE DAILY 180 Cap 1 11/18/2017 Active as of this encounter Active Problems Problem Noted Date Ischemic colitis ([facility]) 10/01/2017 Lower GI bleed 04/21/2017 Irritable bowel syndrome with constipati on 04/21/2017 Elevated plasma metanephrines 02/20/2017 Type 2 diabetes mellitus with hemoglobin A1c goal of less than 7.5% ([facility]) 02/12/2017 Hypercalcemia 02/12/2017 Controlled substance [...] of colon 07/25/2011 COPD, moderate ([facility]) 07/19/2011 Overview: Dr Bhatti every 6 months Allergic rhinitis 07/19/2011 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 Asthma with severity to be determined Carpal tunnel syndrome EDEMA dependent, ankles Generalized osteoarthritis ACEI/ARB contraindicated as of this encounter Resolved Problems Problem Noted Date Resolved Date DM (diabetes mellitus), type 2 ([facility]) 08/07/2015 06/25/2017 Nausea 09/05/2012 06/25/2017 Overview: ICD-10 update of inactive term HTN, GOAL BELOW 140/80 06/01/2012 6 Overview: Per HTN Protocol #27. Hypoxemia 10/08/2011 10/30/2015 Genetic Sleep Disorder Research Other*[id number] 07/25/2011 05/15/2016 Obesity, morbid (more than 1 [...] than 7.0% ([facility]) 08/10/2009 12/03/2012 Overview: Per Diabetes Taxonomy. ICD-10 update of inactive term Type 2 diabetes mellitus wit h hemoglobin A1c goal of less than 7.0% ([facility]) 08/10/2009 Overview: Per Diabetes Taxonomy. [...] Services Gastroenterology Christina Godfrey, RDN [address] [facility] [place] [address] [phone] 01/16/2018 Office Visit Internal Medicine Marcela Pinto MD [address] [place] [address] [phone] 05/29/2018 Imaging Radiology [address] [place] [phone] Health Maintenance Due Date Last Done Comments [...] Phone Address MEDICARE MEDICARE A AND B [id number] Medicare [place], [place] MEDICAID DENISHA Parks [facility] [id number] as of this encounter
--- OUTSIDE RECORDS SUMMARY | 2023-06-18 03:52 | External Medical Summary | Summary of Care ---
Author Name Unknown Organization [place] [address] Phone Care Team Providers Care Measurement Coordinator Name Role Phone Alex Pinto MD Primary Care Provider Reason for Visit * Reason Comments eRx-Medication Refill Encounter Details Date Type Department Care Team Description 11/17/2017 Refill General Internal Medicine [facility] [address] [place] [address] Alex Pinto MD [address] [place] [address] [phone] Ischemic colitis (HCC)* Allergies Active Allergy Reactions Severity Noted Date Comments Valsartan 07/10/2010 Enalapril 05/21/2006 Escitalopram Oxalate Nausea/vomiting 10/11/2009 Nauseated Iodinated Diagnostic Agents Nausea/vomiting 05/2010 IV Contrast Lisinopril 05/21/2006 Metoprolol Tartrate 11/18/2006 Made pulse low [place] Oil-Black Currant-Vit E 07/10/2010 Verapamil 03/21/2004 Bupropion [...] DilTIAZem HCl ER Coated Beads 360 MG [id number]:HTN , goal below 130/80 TAKE 1 CAPSULE EVERY DAY 90 Cap 1 8 Active omeprazole (PRILOSEC) 20 MG CPDRIndications:Isc hemic colitis (HCC) TAKE 1 CAPSULE TWICE DAILY 180 Cap 1 8 Active omeprazole (PRILOSEC) 20 MG CPDR TAKE 1 CAPSULE TWICE DAILY 180 Cap 1 7 11/17/19 18 Discontinued as of this encounter Active Problems Problem Noted Date Ischemic colitis (HCC) 10/01/2017 Lower GI bleed 04/21/2017 Irritable bowel syndrome with constipati on 04/21/2017 Elevated plasma metanephrines 02/20/2017 Type 2 diabetes mellitus with hemoglobin A1c goal of less than 7.5% ([facility]) 02/12/2017 Hypercalcemia 02/12/2017 Controlled substance [...] AHP Diverticulitis of colon 07/25/2011 COPD, moderate ([facility]) 07/19/2011 Overview: Dr Bhatti every 6 months Allergic rhinitis 07/19/2011 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 Asthma with severity to be determined Carpal tunnel syndrome EDEMA dependent, ankles Generalized osteoarthritis ACEI/ARB contraindicated as of this encounter Resolved Problems Problem Noted Date Resolved Date DM (diabetes mellitus), type 2 ([facility]) 08/07/2015 06/25/2017 Nausea 09/05/2012 06/25/2017 Overview: ICD-10 update of inactive term HTN, GOAL BELOW 140/80 06/01/2012 6 Overview: Per HTN Protocol #27. Hypoxemia 10/08/2011 10/30/2015 Genetic Sleep Disorder Research Other*[id number] 07/25/2011 05/15/2016 Obesity, morbid (more than 1 00 lbs over ideal weight or BMI > 40) ([facility]) 01/09/2010 08/19/2017 Overview: Per Obesity [...] less than 7.0% ([facility]) 08/10/2009 12/03/2012 Overview: Per Diabetes Taxonomy. ICD-10 update of inactive term Type 2 diabetes mellitus wit h hemoglobin A1c goal of less than 7.0% ([facility]) 08/10/2009 Overview: Per Diabetes Taxonomy. [...] Telephone Encounter - Alex Pinto MD - 11/18/2017 4:56 PM EST Signed Prescriptions: Disp Refills omeprazole (PRILOSEC) 20 MG CPDR 180 Cap1 Sig: TAKE 1 CAPSULE TWICE DAILY Authorizing Provider: ALEX PINTO * Telephone Encounter - Nicole Saeed LPN - 11/18/2017 4:53 PM EST Pending Prescriptions: Disp Refills omeprazole (PRILOSEC) 20 MG CPDR [Pharmac*180 Cap1 Sig: TAKE 1 CAPSULE TWICE DAILY * Telephone Encounter - Nicole Saeed LPN - 11/18/2017 4:52 PM EST Formatting of this note may be different from the original. Pending Prescriptions: Disp Refills omeprazole (PRILOSEC) 20 MG CPDR [Pharmac*180 Cap1 Sig: TAKE 1 CAPSULE TWICE DAILY Last Office Visit: 10/01/2017 Next Office Visit: 01/16/2018 Scheduled Provider(s): Alex Pinto MD Last date the medication was ordered: 05/05/17 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 COPD, moderate (HCC) J44.9 Allergic rhinitis J30.9 Diverticulitis of colon K57.32 Nocturnal hypoxia G47.34 Sleep apnea, obstructive G47.33 Incisional hernia K43.2 ACEI/ARB contraindicated [id number] HTN, goal below 140/90 I10 Hyperlipidemia with [...] Ischemic colitis ([facility]) K55.9 Labs: CREATININE(mg/dL) Jessica Dt/Tm Resulted Value Status 07/30/17 2:19P 07/30/17 0.9 FINAL POTASSIUM(mmol/L) Jessica Dt/Tm Resulted Value Status 07/30/17 2:19P 07/30/17 4.2 FINAL TSH(uIU/mL) Jessica Dt/Tm Resulted Value Status 05/19/17 12:11P 05/19/17 0.88 FINAL LDL (CALCULATED)(mg/dL) Jessica Dt/Tm Resulted Value Status 06/23/17 11:48A 06/23/17 116 FINAL LDL (DIRECT MEASURE)(mg/dL) Jessica Dt/Tm Resulted Value Status 06/23/17 11:48A 06/23/17 100 FINAL ALT(U/L) Jessica Dt/Tm Resulted Value Status 07/30/17 2:19P 07/30/17 11 FINAL Hemoglobin AIC Results: HEMOGLOBIN, A1C(%) Jessica Dt/Tm Resulted Value Status 05/19/17 12:11P 05/19/17 5.9 FINAL 12/12/16 11:02A 12/12/16 6.3 FINAL 08/27/16 11:46A 08/27/16 6.9* FINAL in this encounter Plan of Treatment Upcoming Encounters Date Type Specialty Care Team Description 11/25/2017 Nutrition Services Gastroenterology Christnia Godfrey, [place]KO [address] [facility] [address] 01/16/2018 Office Visit Internal Medicine Alex Pinto MD [address] [facility] [place] [address] [phone] 05/29/2018 Imaging Radiology [address] [place] [address] [phone] Health Maintenance Due Date Last Done Comments [...] encounter Visit Diagnoses Diagnosis Ischemic colitis (HCC) - Mariangel ivone Unspecified vascular insufficiency of intestine in this encounter Insurance Payer Benefit Plan / Group Subscriber ID Type Phone Address MEDICARE MEDICARE A AND B [id number] Medicare [place], [place] MEDICAID DENISHA Parks [facility] [id number] as of this encounter
--- OUTSIDE RECORDS SUMMARY | 2023-06-18 03:52 | External Medical Summary | Summary of Care ---
Author Name Unknown Organization [place] [address] Phone Care Team Providers Care Hooker Up Name Role Phone Marcela Pinto MD Primary Care Provider [phone] Encounter Details Date Type Department Care Team Description 11/20/2017 Scan Encounter Unspecified Department <No scans attached> Allergies Active Allergy Reactions Severity Noted Date Comments Valsartan 07/10/2010 Enalapril 05/21/2006 Escitalopram Oxalate Nausea/vomiting 10/11/2009 Nauseated Iodinated Diagnostic Agents Nausea/vomiting 05/2010 IV Contrast Lisinopril 05/21/2006 Metoprolol Tartrate 11/18/2006 Made pulse low [place] Oil-Black Currant-Vit E 07/10/2010 Verapamil 03/21/2004 [...] DilTIAZem HCl ER Coated Beads 360 MG [id number]:HTN, goal below 130/80 TAKE 1 CAPSULE EVERY [...] Hypoxemia 10/08/2011 10/30/2015 Genetic Sleep Disorder Research Other*[id number] 07/25/2011 05/15/2016 Obesity, morbid (more than 1 [...] Services Gastroenterology Christina Godfrey, RDN [address] [facility] [place] [address] [phone] 01/16/2018 Office Visit Internal Medicine Marcela Pinto MD [address] [place] [address] [phone] 05/29/2018 Imaging Radiology [address] [place] [phone] Health Maintenance Due Date Last Done Comments [...] Phone Address MEDICARE MEDICARE A AND B [id number] Medicare [place] MEDICAID DENISHA Parks [facility] [id number] as of this encounter
--- OUTSIDE RECORDS SUMMARY | 2023-06-18 03:52 | External Medical Summary | Summary of Care ---
Author Name Unknown Organization [place] [address] Phone Care Team Providers Care Weigher And Mixer Name Role Phone Marcela Pinto MD Primary Care Provider [phone] Encounter Details Date Type Department Care Team Description 11/21/2017 Orders Only General Internal Medicine [facility] [address] [place] [address] Marcela Pinto MD [address] [place] [address] [phone] Allergies Active Allergy Reactions Severity Noted Date Comments Valsartan 07/10/2010 Enalapril 05/21/2006 Escitalopram Oxalate Nausea/vomiting 10/11/2009 Nauseated Iodinated Diagnostic Agents Nausea/vomiting 05/2010 IV Contrast Lisinopril 05/21/2006 Metoprolol Tartrate 11/18/2006 Made pulse low [place] Oil-Black Currant-Vit E 07/10/2010 Verapamil 03/21/2004 Bupropion [...] Active ondansetron ODT (ZOFRAN) 8 MG TBDPIndications:Marvin [facility] 1 Tab on tongue every 8 [...] DilTIAZem HCl ER Coated Beads 360 MG VT13Jhadgpkvxai:HTN, goal below 130/80 TAKE 1 CAPSULE EVERY [...] less than 7.5% ([facility]) 02/12/2017 Hypercalcemia 02/12/2017 Controlled substance [...] Diverticulitis of colon 07/25/2011 COPD, moderate ([facility]) 07/19/2011 Overview: Dr Bhatti every 6 months Allergic rhinitis 07/19/2011 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 Asthma with severity to be determined Carpal tunnel syndrome EDEMA dependent, ankles Generalized osteoarthritis ACEI/ARB contraindicated as of this encounter Resolved Problems Problem Noted Date Resolved Date DM (diabetes mellitus), type 2 ([facility]) 08/07/2015 06/25/2017 Nausea 09/05/2012 06/25/2017 Overview: ICD-10 update of inactive term HTN, GOAL BELOW 140/80 06/01/2012 6 Overview: Per HTN Protocol #27. Hypoxemia 10/08/2011 10/30/2015 Genetic Sleep Disorder Research Other*[id number] 07/25/2011 05/15/2016 Obesity, morbid (more than 1 00 lbs over ideal weight or BMI > 40) ([facility]) 01/09/2010 08/19/2017 Overview: Per Obesity [...] less than 7.0% ([facility]) 08/10/2009 12/03/2012 Overview: Per Diabetes Taxonomy. ICD-10 update of inactive term Type 2 diabetes mellitus wit h hemoglobin A1c goal of less than 7.0% ([facility]) 08/10/2009 Overview: Per Diabetes Taxonomy. [...] Services Gastroenterology Christina Godfrey, RDN [address] [facility] [address] [phone] 01/16/2018 Office Visit Internal Medicine Marcela Pinto MD [address] [place] [address] [phone] 05/29/2018 Imaging Radiology [address] [place] [address] [phone] Pending Results Name Priority Associated Diagnoses Date/Ti me CHEMISTRY-OUTSIDE Routine 11/20/2017 12:00 AM EST Health Maintenance Due Date Last [...] Phone Address MEDICARE MEDICARE A AND B [id number] Medicare [place], [place] MEDICAID DENISHA Parks [facility] [id number] as of this encounter
--- OUTSIDE RECORDS SUMMARY | 2023-06-18 03:52 | External Medical Summary | Summary of Care ---
Author Name Unknown Organization [place] [address] Phone Care Team Providers Care Shell Molding Roller Blast Operator Name Role Phone Marcela Pinto MD Primary Care Provider [phone] Encounter Details Date Type Department Care Team Description 11/21/2017 Orders Only General Internal Medicine [facility] [address] [place] [address] Marcela Pinto MD [address] [place] [address] [phone] Allergies Active Allergy Reactions Severity Noted Date Comments Valsartan 07/10/2010 Enalapril 05/21/2006 Escitalopram Oxalate Nausea/vomiting 10/11/2009 Nauseated Iodinated Diagnostic Agents Nausea/vomiting 05/2010 IV Contrast Lisinopril 05/21/2006 Metoprolol Tartrate 11/18/2006 Made pulse low [place] Oil-Black Currant-Vit E 07/10/2010 Verapamil 03/21/2004 Bupropion [...] DilTIAZem HCl ER Coated Beads 360 MG LG12Mptkkzkzgtn:HTN, goal below 130/80 TAKE 1 CAPSULE EVERY [...] of less than 7.5% ([facility]) 02/12/2017 Hypercalcemia 02/12/2017 Controlled substance agreement signed [...] of colon 07/25/2011 COPD, moderate ([facility]) 07/19/2011 Overview: Dr Bhatti every 6 months Allergic rhinitis 07/19/2011 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 Asthma with severity to be determined Carpal tunnel syndrome EDEMA dependent, ankles Generalized osteoarthritis ACEI/ARB contraindicated as of this encounter Resolved Problems Problem Noted Date Resolved Date DM (diabetes mellitus), type 2 ([facility]) 08/07/2015 06/25/2017 Nausea 09/05/2012 06/25/2017 Overview: ICD-10 update of inactive term HTN, GOAL BELOW 140/80 06/01/2012 6 Overview: Per HTN Protocol #27. Hypoxemia 10/08/2011 10/30/2015 Genetic Sleep Disorder Research Other*[id number] 07/25/2011 05/15/2016 Obesity, morbid (more than 1 00 lbs over ideal weight or BMI > 40) ([facility]) 01/09/2010 08/19/2017 Overview: Per Obesity Taxonomy HTN, [...] of less than 7.0% ([facility]) 08/10/2009 12/03/2012 Overview: Per Diabetes Taxonomy. ICD-10 update of inactive term Type 2 diabetes mellitus wit h hemoglobin A1c goal of less than 7.0% ([facility]) 08/10/2009 Overview: Per Diabetes Taxonomy. ICD-10 update [...] Services Gastroenterology Christina Godfrey, RDN [address] [facility] [place] [address] [phone] 01/16/2018 Office Visit Internal Medicine Marcela Pinto MD [address] [place] [address] [phone] 05/29/2018 Imaging Radiology [address] [place] [address] [phone] Pending Results Name Priority Associated Diagnoses Date/Ti me XR CHEST 2 VIEWS Routine 11/21/2017 12:00 AM EST CHEMISTRY-OUTSIDE Routine 11/20/2017 12:00 AM EST Health [...] Phone Address MEDICARE MEDICARE A AND B [id number] Medicare [place], [place] MEDICAID DENISHA Parks [employer] [id number] as of this encounter
--- OUTSIDE RECORDS SUMMARY | 2023-06-18 03:52 | External Medical Summary | Summary of Care ---
Author Name Unknown Organization [place] [address] Phone Care Team Providers Care Electrolysist Name Role Phone Marcela Pinto MD Primary Care Provider [phone] Encounter Details Date Type Department Care Team Description 11/20/2017 Scan Encounter Unspecified Department <No scans attached> Allergies Active Allergy Reactions Severity Noted Date Comments Valsartan 07/10/2010 Enalapril 05/21/2006 Escitalopram Oxalate Nausea/vomiting 10/11/2009 Nauseated Iodinated Diagnostic Agents Nausea/vomiting 05/2010 IV Contrast Lisinopril 05/21/2006 Metoprolol Tartrate 11/18/2006 Made pulse low [place] Oil-Black Currant-Vit E 07/10/2010 Verapamil 03/21/2004 Bupropion [...] DilTIAZem HCl ER Coated Beads 360 MG TL31Onnuffehgcr:HTN, goal below 130/80 TAKE 1 CAPSULE EVERY DAY 90 Cap 1 11/07/2017 Active omeprazole (PRILOSEC) 20 MG CPDRIndications:Isch emic colitis ([facility]) TAKE 1 CAPSULE TWICE DAILY [...] Hypoxemia 10/08/2011 10/30/2015 Genetic Sleep Disorder Research Other*[id number] 07/25/2011 05/15/2016 Obesity, morbid (more than 1 [...] Services Gastroenterology Christina Godfrey, RDN [address] [facility] [place] [address] [phone] 01/16/2018 Office Visit Internal Medicine Marcela Pinto MD [address] [place] [address] [phone] 05/29/2018 Imaging Radiology [address] [place] [id number] Health Maintenance Due Date Last Done Comments [...] Phone Address MEDICARE MEDICARE A AND B [id number] Medicare [place], [place] MEDICAID DENISHA Parks [facility] [id number] as of this encounter
--- OUTSIDE RECORDS SUMMARY | 2023-06-18 03:53 | External Medical Summary | Summary of Care ---
Author Name Unknown Organization [place] [address] Phone Care Team Providers Care Space Engineer Name Role Phone Marcela Pinto MD Primary Care Provider [phone] Reason for Visit * Reason Comments eRx-Medication Refill Encounter Details Date Type Department Care Team Description 09/03/2017 Refill General Internal Medicine [facility] [address] [place] [address] Marcela Pinto MD 200 [place] [address] [phone] Asthma with severity to be determined Allergies [...] time with Prednisone. 2 Tab 0 Active dicyclomine (BENTYL) 20 MG TabletIndications:C hronic constipation TAKE 1 TABLET EVERY DAY 90 Tab 2 7 Active Glucose Blood (YEIMY CONTOUR TEST) STRPIndications:Typ [...] FOR NAUSEA 60 Tab 3 7 Active glimepiride (AMARYL) 4 MG Tablet TAKE 1 TABLET BY MOUTH IN THE MORNING AND 1/2 TABLET BY MOUTH IN THE EVENING 135 Tab 1 7 Active Multiple Vitamins-Minerals (ONE DAILY MULTIVITAMIN WOMEN) TABS one pill each day 7 Active Terazosin HCl 2 MG Capsule Take 1 Cap by mouth daily. 90 Cap 1 7 Active omeprazole (PRILOSEC) 20 MG CPDR TAKE 1 CAPSULE TWICE DAILY 180 Cap 1 7 Active DilTIAZem HCl ER Coated Beads 360 MG VP10Shjbypsksqp:HTN , goal below 130/80 TAKE ONE CAPSULE [...] mg by mouth daily. 5 7 Active HYDROcodone-acetami nophen 5-325 mg per tab 5-325 MG per tabletIndications:G eneralized osteoarthritis Take 1 Tab by mouth every 6 hours as needed for Pain, Breakthrough. 120 Tab 0 7 Active COMBIVENT RESPIMAT 20-100 MCG/ACT InhalerIndications: [...] EVERY DAY 90 Tab 1 7 Active zafirlukast (ACCOLATE) 20 MG TabletIndications:A sthma with severity to be determined TAKE 1 TABLET EVERY DAY 90 Tab 1 7 09/03/20 17 Discontinued as of this encounter Active Problems Problem Noted Date Lower GI bleed 04/21/2017 Irritable bowel syndrome with constipati on 04/21/2017 Elevated plasma metanephrines 02/20/2017 Type 2 diabetes mellitus with hemoglobin A1c goal of less than 7.5% ([facility]) 02/12/2017 Hypercalcemia 02/12/2017 Controlled substance [...] Hypoxemia 10/08/2011 10/30/2015 Genetic Sleep Disorder Research Other*[id number] 07/25/2011 05/15/2016 Obesity, morbid (more than 1 [...] less than 7.0% ([facility]) 08/10/2009 Overview: Per Diabetes Taxonomy. [...] Encounters Date Type Specialty Care Team Description 10/01/2017 Office Visit Internal Medicine Kristal Duvall, INCINERATOR PLANT SUPERVISOR [address] [place] [address] [phone] 10/01/2017 Office Visit Gastroenterology Estephania Costa PA-C [address] [place] [address] [phone] 05/29/2018 Imaging Radiology [address] [place] [address] [phone] Health Maintenance Due Date Last Done Comments [...] to be d etermined in this encounter Insurance Payer Benefit Plan / Group Subscriber ID Type Phone Address MEDICARE MEDICARE A AND B [id number] Medicare [place], [place] MEDICAID DENISHA Parks [facility] [id number] as of this encounter
--- OUTSIDE RECORDS SUMMARY | 2023-06-18 03:53 | External Medical Summary | Summary of Care ---
Author Name Unknown Organization [place] [address] Phone Care Team Providers Care Plastics Nurse Name Role Phone Marcela Pinto MD Primary Care Provider [phone] Reason for Visit * Reason Comments MEDICATION REFILL Encounter Details Date Type Department Care Team Description 09/11/2017 Refill General Internal Medicine [facility] [address] [place] [address] Marcela Pinto MD [address] [place] [address] [phone] GENERAL OSTEOARTHROSIS Allergies Active Allergy Reactions Severity Noted Date Comments Valsartan 07/10/2010 Enalapril 05/21/2006 Escitalopram Oxalate Nausea/vomiting 10/11/2009 Nauseated Iodinated Diagnostic Agents Nausea/vomiting 05/2010 IV Contrast Lisinopril 05/21/2006 Metoprolol Tartrate 11/18/2006 Made pulse low [place] Oil-Black Currant-Vit E 07/10/2010 Verapamil 03/21/2004 [...] DilTIAZem HCl ER Coated Beads 360 MG PK72Saqexklldne:HTN , goal below 130/80 TAKE ONE CAPSULE [...] EVERY DAY 90 Tab 1 7 Active HYDROcodone-acetami nophen 5-325 mg per tab 5-325 MG per tabletIndications:G eneralized osteoarthritis Take 1 Tab by mouth every 6 hours as needed for Pain, Breakthrough. 120 Tab 0 7 Active HYDROcodone-acetami nophen 5-325 mg per tab 5-325 MG per tabletIndications:G eneralized osteoarthritis Take 1 Tab by mouth every 6 hours as needed for Pain, Breakthrough. 120 Tab 0 7 09/11/20 17 Discontinued as of this encounter Active [...] AHP Diverticulitis of colon 07/25/2011 COPD, moderate ([facility]) 07/19/2011 Overview: Dr Bhatti every [...] Hypoxemia 10/08/2011 10/30/2015 Genetic Sleep Disorder Research Other*[id number] 07/25/2011 05/15/2016 Obesity, morbid (more than 1 [...] 10/01/2017 Office Visit Internal Medicine Kristal Duvall, NIECY [address] [place], [place] [address] [phone] 10/01/2017 Office Visit Gastroenterology Estephania Costa PA-C [address] [place] [address] [phone] 05/29/2018 Imaging Radiology [facility], [address] [place] [phone] Health Maintenance Due Date Last Done Comments [...] Phone Address MEDICARE MEDICARE A AND B [id number] Medicare [place], [place] MEDICAID DENISHA Parks [facility] [id number] as of this encounter
--- OUTSIDE RECORDS SUMMARY | 2023-06-18 03:53 | External Medical Summary | Summary of Care ---
Author Name Unknown Organization [place] [address] Phone Care Team Providers Care Patient Relations Representative Name Role Phone Marcela Pinto MD Primary Care Provider [phone] Reason for Visit * Reason Comments Acute Let side pain Encounter Details Date Type Department Care Team Description 10/14/[address] [facility] [address] [place] [address] Keith Kendrick, [address] [place] [address] [phone] Abdominal pain, left lower quadrant* Allergies Active Allergy Reactions Severity Noted Date Comments Valsartan 07/10/2010 Enalapril 05/21/2006 Escitalopram Oxalate Nausea/vomiting 10/11/2009 Nauseated Iodinated Diagnostic Agents Nausea/vomiting 05/2010 IV Contrast Lisinopril 05/21/2006 Metoprolol Tartrate 11/18/2006 Made pulse low [place] Oil-Black Currant-Vit E 07/10/2010 Verapamil 03/21/2004 [...] TABS one pill each day 04/21/2017 Active Terazosin HCl 2 MG Capsule Take 1 Cap by mouth daily. 90 Cap 1 04/29/2017 Active omeprazole (PRILOSEC) 20 MG CPDR TAKE 1 CAPSULE TWICE DAILY 180 Cap 1 05/05/2017 Active DilTIAZem HCl ER Coated Beads 360 MG FH21Mtystpitjqs:HTN, goal below 130/80 TAKE ONE CAPSULE BY MOUTH DAILY 90 Cap 1 05/12/2017 Active SENNA PLUS 8.6-50 MG per tablet [...] EVERY DAY 90 Tab 1 09/03/2017 Active HYDROcodone-acetamin ophen 5-325 mg per tab 5-325 MG per tabletIndications:Ge neralized osteoarthritis Take 1 Tab by mouth every 6 hours as needed for Pain, Breakthrough. 120 Tab 0 09/11/2017 Active dicyclomine (BENTYL) 20 MG TabletIndications:Ch ronic [...] 2 days 20 Tab 0 10/01/2017 Active as of this encounter Active Problems [...] Diverticulitis of colon 07/25/2011 COPD, moderate ([facility]) 07/19/2011 Overview: Dr Bhatti every 6 months Allergic rhinitis 07/19/2011 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 Asthma with severity to be determined Carpal tunnel syndrome EDEMA dependent, ankles Generalized osteoarthritis ACEI/ARB contraindicated as of this encounter Resolved Problems Problem Noted Date Resolved Date DM (diabetes mellitus), type 2 ([facility]) 08/07/2015 06/25/2017 Nausea 09/05/2012 06/25/2017 Overview: ICD-10 update of inactive term HTN, GOAL BELOW 140/80 06/01/2012 6 Overview: Per HTN Protocol #27. Hypoxemia 10/08/2011 10/30/2015 Genetic Sleep Disorder Research Other*[id number] 07/25/2011 05/15/2016 Obesity, morbid (more than 1 00 lbs over ideal weight or BMI > 40) ([facility]) 01/09/2010 08/19/2017 Overview: Per [...] than 7.0% ([facility]) 08/10/2009 12/03/2012 Overview: Per Diabetes Taxonomy. ICD-10 update of inactive term Type 2 diabetes mellitus wit h hemoglobin A1c goal of less than 7.0% ([facility]) 08/10/2009 Overview: Per Diabetes [...] Sign Reading Time Taken Blood Pressure 128/62 10/14/2017 3:12 PM EST Pulse 71 10/14/2017 3:12 PM EST Temperature 37 C (98.6 F) 10/14/2017 3:1 2 PM EST Respiratory Rate 18 10/14/2017 3:12 PM EST Oxygen Saturation 93% 10/14/2017 3:1 2 PM EST Inhaled Oxygen Concentration - - Weight 109.5 kg (241 lb 6.4 oz) 018 3:12 PM EST Height - - Body Mass Index 40.17 10/14/2017 3:12 PM EST in this encounter Progress Notes * Keith Kendrick, - 10/14/2017 3:26 PM EST Formatting of this note may be different from the original. Subjective: Nina Harrintgon is a 76 year old female. Chief Complaint Patient presents with Acute Let side pain HPI: Pt needs to take Senna and miralax to go to the bathroom. Skipped two days and then got to [facility]. In the night she got pain on her LLQ. She had a BM and it helped with the pain. Her BM had some mucous and then normal soft stool. It helped with her pain when she had a BM. Has pain but not as much as before. Still has some pain with movement but not with just sitting. No blood in her stool or dark black. No F or C. She is back on her usual regemin of Senna dn miralax. HJer last BM was 1 o clock today. It was normal with no blood or diarrhea. PMHx, meds, and allergies reviewed 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 COPD, moderate ([facility]) J44.9 Allergic rhinitis J30.9 Diverticulitis of colon K57.32 Nocturnal hypoxia G47.34 Sleep apnea, obstructive G47.33 Incisional hernia K43.2 ACEI/ARB contraindicated [id number] HTN, goal below 140/90 I10 Hyperlipidemia with [...] mouth 2 times a day.1 Inhaler 5 PredniSONE (DELTASONE) 10 MG Tablet Take 4 pills x 2 days, 3 pills x 2 days, 2 pills x 2 days, 1 pill x 2 days 20 Tab 0 glimepiride (AMARYL) 4 MG Tablet TAKE 1 TABLET BY MOUTH IN THE MORNING AND 1/2 TABLET BY MOUTH IN THE EVENING 135 Tab 1 KLOR-CON M20 20 MEQ TBCR TAKE 1 TABLET BY MOUTH DAILY 90 Tab 1 dicyclomine (BENTYL) 20 MG Tablet TAKE 1 TABLET BY MOUTH EVERY DAY 90 Tab 2 HYDROcodone-acetaminophen 5-325 mg per [...] once daily--Dx code 250.00 100 Each 3 CLONIDINE HCL 0.1 MG PO TABS One pill by mouth as needed for bp over 170/90 10 0 VITAMIN D 1000 UNITS PO TABS one tablet daily Review of patient's allergies indicates: Allergen Reactions Diovan [Valsartan] Enalapril Escitalopram Oxalate Nausea/vomiting Nauseated Iodinated Diagnostic Agents Nausea/vomiting IV Contrast Lisinopril Metoprolol Tartrate Made pulse low [place] Oil-Black Currant-Vit E Verapamil Wellbutrin [Bupropion Hcl] Makes pt sick in the stomach OBJECTIVE: BP 128/62 | Pulse 71 | Temp (Src) 98.6 (Tympanic) | Resp 18 | Wt 241 lbs 6.4 oz (109.498kg) | BMI 40.17 kg/m | BSA 2.24 m | SaO2 93% Estimated body mass index is 40.17 kg/(m^2) as calculated from the following: Height as of 10/01/17: 1.651 m (5' 5"). Weight as of this encounter: 109.5 kg (241 lb 6.4 oz). BP Readings from Last 3 Encounters: 10/14/17 128/62 10/01/17 134/68 10/01/17 140/70 Wt Readings from Last 3 Encounters: 10/14/17 109.5 kg (241 lb 6.4 oz) 10/01/17 107 kg (235 lb 12.8 oz) 10/01/17 107.3 kg (236 lb 9.6 oz) ROS: Negative except for above PHYSICAL EXAM: General: alert, healthy, no distress, well nourished and well developed Head: Normocephalic, No masses, lesions, tenderness or abnormalities Heart: regular rate & rhythm, no murmurs and no gallops Lungs: chest symmetric with normal AP diameter, no chest deformities noted, no chest wall tenderness, lungs clear to auscultation Abdomen: abdomen soft, normal bowel sounds, no masses or organomegaly, no rebound or guarding and mild pain with palpation of her LLQ Back: No CVA tenderness, no tenderness to percussion or palpation Extremities: no joint deformities, effusion, or inflammation, no edema, no clubbing, no cyanosis ASSESSMENT/Plan R10.32 Abdominal pain, left lower quadrant (primary encounter diagnosis) I do not think she has diverticulitis. She has no F, C diarrhea, or blood in her stool. Her bowel is probably just irritated from getting backed up a little. I told her to call me right away if she gets any of the above signs and I'll send for Cipro and flagyl before she needs to go to the ER. I told her In was field contractor this weekend also if she needed. The above was discussed and understanding was expressed. Keith Kendrick, DO in this encounter Nursing Notes * Jeannie Reed, NICOL - 10/14/2017 3:14 PM EST Patient presents today for Left side pain soreness hurts when walking x 3 days.started when taking patient stopped taking senna for 2 days then took 2 tabs before bed and pain started. Patient concerned has previously had diverticulitis. Hm and med reviewed in this encounter Plan of Treatment Upcoming Encounters Date Type Specialty Care Team Description 11/25/2017 Nutrition Services Gastroenterology Christina Godfrey, RDN [address] [place] [address] [phone] 01/16/2018 Office Visit Internal Medicine Marcela Pinto MD [address] [facility] [place] [address] [phone] 05/29/2018 Imaging Radiology [address] [place] [phone] Health Maintenance Due Date Last Done Comments *ASTHMA ACTION PLAN-ADULT YEARLY 10/05/2014 *ADVANCE DIRECTIVE NOT ON FILE 11/03/2014 *SPIROMETRY MONITORING COMPL ETED IN PAST 2 YEARS FOR NON-SEVERE COPD 01/06/2017 *ASTHMA CONTROL TEST IN LAST 6 MONTHS-ADULT 09/21/2017 DIABETES-FOOT EXAM 11/15/2017 11/15/2016, 0 02/23/2016, 03/28/2015, [...] fileas of this encounter Visit Diagnoses Diagnosis Abdominal pain, left lower q uadrant - Primary in this encounter Insurance Payer Benefit Plan / Group Subscriber ID Type Phone Address MEDICARE MEDICARE A AND B [id number] Medicare [place], [place] MEDICAID [place] M Charly [facility] [id number] as of this encounter
--- OUTSIDE RECORDS SUMMARY | 2023-06-18 03:53 | External Medical Summary | Summary of Care ---
Author Name Unknown Organization [place] [address] Phone Care Team Providers Care Console Attendant Name Role Phone Marcela Pinto MD Primary Care Provider [phone] Encounter Details Date Type Department Care Team Description 08/29/2017 Office Visit General Internal Medicine [facility] [address] [place] [address] Marcela Pinto MD [address] [place] [address] [phone] Diverticulitis of colon*;COPD, moderate (HCC);Type 2 diabetes mellitus with hemoglobin A1c goal of less than 7.5% (HCC);Nocturnal hypoxia Allergies Active Allergy Reactions Severity Noted Date Comments Valsartan 07/10/2010 Enalapril 05/21/2006 Escitalopram Oxalate Nausea/vomiting 10/11/2009 Nauseated Iodinated Diagnostic Agents Nausea/vomiting 05/2010 IV Contrast Lisinopril 05/21/2006 Metoprolol Tartrate 11/18/2006 Made pulse low [place] Oil-Black Currant-Vit E 07/10/2010 Verapamil 03/21/2004 Bupropion [...] DilTIAZem HCl ER Coated Beads 360 MG ZE55Ahgvtktjjbj:HTN , goal below 130/80 TAKE ONE CAPSULE [...] Hypoxemia 10/08/2011 10/30/2015 Genetic Sleep Disorder Research Other*[id number] 07/25/2011 05/15/2016 Obesity, morbid (more than 1 [...] Vital Sign Reading Time Taken Blood Pressure 136/66 08/29/2017 2:27 PM EST Pulse 66 08/29/2017 2:27 PM EST Temperature 37.1 C (98.7 F) 08/29/2017 2 :27 PM EST Respiratory Rate 18 08/29/2017 2:27 PM EST Oxygen Saturation - - Inhaled Oxygen Concentration - - Weight 107.6 kg (237 lb 3.2 oz) 017 2:27 PM EST Height 165.1 cm (5' 5") 08/29/2017 2:27 PM EST Body Mass Index 39.47 08/29/2017 2:27 PM EST in this encounter Progress Notes * Marcela Pinto MD - 08/29/2017 2:20 PM EST Formatting of this note may be different from the original. HPI: Nina Harrington is a 76 year old female with medical problems as listed below who presents with: No chief complaint on file. Pt is here for the recheck of acute visit - she saw Kristal twice. First time seen recently by Kristal on 07/30/17 and was treated for possible acute diverticulitis and was treated with Cipro and Flagyl, it helped with lower abd and flank pain.pt had no UTI at that time. Pt was seen again on 08/05/17 for the f/u an dwas feeling better with an antibiotics. Pt was refusing CT abd at that time. Pt again was seen by Kristal on 08/19/17 for left sided mid backpain. Pt had xray T spine and it showed? Pneumonia or density and was advised to start Doxy. Pt follows with Dr. Bhatti every 6 months to year and has upcoming appointment in 10 days. Uses [facility]. Pt just finished her doxy yesterday. Discussed getting xray chest in 2-3 weeks at [facility]. 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 COPD, moderate (HCC) J44.9 Allergic rhinitis J30.9 Diverticulitis of colon K57.32 Nocturnal hypoxia G47.34 Sleep apnea, obstructive G47.33 Incisional hernia K43.2 ACEI/ARB contraindicated [id number] HTN, goal below 140/90 I10 Hyperlipidemia with [...] 4 TIMES A DAY 1 Inhaler 5 HYDROcodone-acetaminophen 5-325 mg per tab 5-325 MG per tablet Take 1 Tab by mouth every 6 hours as needed for Pain, Breakthrough. 120 Tab 0 atorvaSTATin (LIPITOR) 20 MG Tablet Take 20 [...] each day glimepiride (AMARYL) 4 MG Tablet TAKE 1 TABLET BY MOUTH IN THE MORNING AND 1/2 TABLET BY MOUTH IN THE EVENING 135 Tab 1 aspirin enteric coated 81 MG TBEC Take 1 Tab by mouth daily. 100 Tab 3 ondansetron ODT (ZOFRAN) [address] 1 Tab on tongue every 8 hours as needed for Nausea. DISSOLVE 1 TABLET IN MOUTH EVERY 8 HOURS NEEDED FOR NAUSEA 60 Tab 3 zafirlukast (ACCOLATE) 20 MG Tablet TAKE 1 TABLET EVERY DAY 90 Tab 1 Glucose Blood (YEIMY CONTOUR TEST) STRP USE TO TEST BLOOD SUGAR 4 TIMES A DAY FOR DIAGNOSIS CODE OF E11.9 100 Strip 5 dicyclomine (BENTYL) 20 MG Tablet TAKE 1 TABLET EVERY DAY 90 Tab 2 diphenhydramine (BENADRYL) 25 MG Tablet Take by [...] needed for bp over 170/90 10 0 The patient's medication list was reviewed and updated as needed. Review of patient's allergies indicates: Allergen Reactions Diovan [Valsartan] Enalapril Escitalopram Oxalate Nausea/vomiting Nauseated Iodinated Diagnostic Agents Nausea/vomiting IV Contrast Lisinopril Metoprolol Tartrate Made pulse low [place] Oil-Black Currant-Vit E Verapamil Wellbutrin [Bupropion Hcl] Makes pt sick in the stomach Past Medical History: Diagnosis Date ACEI/ARB contraindicated Asthma Carpal tunnel syndrome DM type 2, goal: symptom mgmt (HCC) Generalized osteoarthritis HTN, goal below 140/90 Mixed dyslipidemia 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 Marital status: Spouse name: N/A Number of children: 6 Years of education: N/A 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 OBJECTIVE: BP 136/66 | Pulse 66 | Temp (Src) 98.7 (Tympanic) | Resp 18 | Ht 5' 5" (1.651m) | Wt 237 lbs 3.2 oz(107.593kg) | BMI 39.47 kg/m | BSA 2.22 m PHYSICAL EXAM: HEENT: PERRLA, EOMI, anicteric sclera, b/l tympanic membrane is pearly white, no erythema, no pharyngeal erythema, no lymphadenopathy, neck supple CVS: RRR, no murmurs, rubs or gallops, s1 s 2normal. RESP: clear to auscultation, no wheezing or crackles ABD: soft, NT/ND, BS normal, no hepatosplenomegaly EXT: no edema, cyanosis, peripheral pulses palpable bilaterally ASSESSMENT AND PLAN: K57.32 Diverticulitis of colon (primary encounter diagnosis) Resolved. Diet discussed. Advised hydration. J44.9 Copd, moderate (hcc) Continue current inhalers and keep follow-up with Dr. jaime. E11.9 Type 2 diabetes mellitus with hemoglobin a1c goal of less than 7.5% (hcc) Continue current medications, portion control, diet, regular walking. Hemoglobin AIC Results: HEMOGLOBIN, A1C(%) Jessica Dt/Tm Resulted Value Status 05/19/17 12:11P 05/19/17 5.9 FINAL 12/12/16 11:02A 12/12/16 6.3 FINAL 08/27/16 11:46A 08/27/16 6.9* FINAL G47.34 Nocturnal hypoxia Uses oxygen 2 L at nighttime. Marcela Pinto MD in this encounter Plan of Treatment Upcoming Encounters Date Type Specialty Care Team Description 10/01/2017 Office Visit Internal Medicine Kristal Duvall, NIECY [address] [place] [address] [phone] 10/01/2017 Office Visit Gastroenterology Estephania Costa PA-C [address] [place] [address] [phone] 05/29/2018 Imaging Radiology [address] [place] [id number] Health Maintenance Due Date Last Done Comments [...] fileas of this encounter Visit Diagnoses Diagnosis Diverticulitis of colon - Pr imary Diverticulitis of colon (without mention of hemorrhage) COPD, moderate (HCC) Chronic airway obstruction, not elsewhere classified Type 2 diabetes mellitus wit h hemoglobin A1c goal of less than 7.5% (HCC) Nocturnal hypoxia Hypoxemia in this encounter Insurance Payer Benefit Plan / Group Subscriber ID Type Phone Address MEDICARE MEDICARE A AND B [id number] Medicare [place], [place] MEDICAID DENISHA Parks [facility] [id number] as of this encounter
--- OUTSIDE RECORDS SUMMARY | 2023-06-18 03:53 | External Medical Summary | Summary of Care ---
Author Name Unknown Organization [place] [address] Phone Care Team Providers Care Maintenance Mechanic Engine Name Role Phone Marcela Pinto MD Primary Care Provider [phone] Reason for Visit * Reason Comments eRx-Medication Refill Encounter Details Date Type Department Care Team Description 08/26/2017 Refill General Internal Medicine [facility] [address] [place] [address] Marcela Pinto MD [address] [place] [address] [phone] Asthma with severity to be determined;COPD, moderate ([facility]) Allergies Active Allergy Reactions Severity Noted Date Comments Valsartan 07/10/2010 Enalapril 05/21/2006 Escitalopram Oxalate Nausea/vomiting 10/11/2009 Nauseated Iodinated Diagnostic Agents Nausea/vomiting 05/2010 IV Contrast Lisinopril 05/21/2006 Metoprolol Tartrate 11/18/2006 Made pulse low [place] Oil-Black Currant-Vit E 07/10/2010 Verapamil 03/21/2004 Bupropion [...] OF E11.9 100 Strip 5 7 Active zafirlukast (ACCOLATE) 20 MG TabletIndications:A sthma with severity to be determined TAKE 1 TABLET EVERY DAY 90 Tab 1 7 Active aspirin enteric coated 81 MG [...] DilTIAZem HCl ER Coated Beads 360 MG [id number]:HTN , goal below 130/80 TAKE ONE CAPSULE [...] a day. 20 Tab 0 7 Active doxycycline hyclate 100 MG CapsuleIndications: Opacity of lung on imaging study Take 1 Cap by mouth 2 times a day for 7 days. Take for 7 days 14 Cap 0 7 08/28/20 17 Active albuterol sulfate (PROVENTIL) (2.5 MG/3ML) 0.083% nebulizer solutionIndications :Asthma with severity to be determined,COPD, moderate (HCC) USE ONE NEBULIZER TREATMENT TWICE A DAY NEEDED FOR WORSENING ASTHMA. J45.909, J44.9 225 mL 1 7 Active albuterol sulfate (PROVENTIL) (2.5 MG/3ML) 0.083% nebulizer solutionIndications :Asthma with severity to be determined,COPD, moderate (HCC) USE ONE NEBULIZER TREATMENT TWICE A DAY NEEDED FOR WORSENING ASTHMA. J45.909, J44.9 225 mL 1 7 08/26/20 17 Discontinued as of this encounter Active [...] Hypoxemia 10/08/2011 10/30/2015 Genetic Sleep Disorder Research Other*[id number] 07/25/2011 05/15/2016 Obesity, morbid (more than 1 00 lbs over ideal weight or BMI > 40) ([facility]) 01/09/2010 08/19/2017 Overview: Per Obesity [...] Encounters Date Type Specialty Care Team Description 08/29/2017 Office Visit Internal Medicine Marcela Pinto MD [address] [place] [address] [phone] 09/10/2017 Office Visit Gastroenterology Estephania Costa PA-C [address] [place] [address] [phone] 10/02/2017 Office Visit Internal Medicine Marcela Pinto MD [address] [place] [address] [phone] 05/29/2018 Imaging Radiology [address] [place] [address] [phone] Health Maintenance Due Date Last Done Comments [...] Phone Address MEDICARE MEDICARE A AND B [id number] Medicare [place], [place] MEDICAID EDNISHA Parks [facility] [id number] as of this encounter
--- OUTSIDE RECORDS SUMMARY | 2023-06-18 03:53 | External Medical Summary | Summary of Care ---
Author Name Unknown Organization [place] [address] Phone Care Team Providers Care Employment Evaluator/Case Manager Name Role Phone Alex Pinto MD Primary Care Provider [phone] Reason for Visit * Reason Comments MEDICATION REFILL Encounter Details Date Type Department Care Team Description 10/20/2017 Refill General Internal Medicine [facility] [address] [place] [address] Alex Pinto MD [address] [place] [address] [phone] GENERAL OSTEOARTHROSIS Allergies Active Allergy Reactions Severity Noted Date Comments Valsartan 07/10/2010 Enalapril 05/21/2006 Escitalopram Oxalate Nausea/vomiting 10/11/2009 Nauseated Iodinated Diagnostic Agents Nausea/vomiting 05/2010 IV Contrast Lisinopril 05/21/2006 Metoprolol Tartrate 11/18/2006 Made pulse low [place] Oil-Black Currant-Vit E 07/10/2010 Verapamil 03/21/2004 Bupropion [...] DilTIAZem HCl ER Coated Beads 360 MG [id number]:HTN , goal below 130/80 TAKE ONE CAPSULE [...] 120 Tab 0 7 10/20/19 18 Discontinued as of this encounter Active [...] Hypoxemia 10/08/2011 10/30/2015 Genetic Sleep Disorder Research Other*[id number] 07/25/2011 05/15/2016 Obesity, morbid (more than 1 [...] Telephone Encounter - Alex Pinto MD - 10/21/2017 9:50 AM EST Signed Prescriptions: Disp RefillsHYDROcodone-acetaminophen 5-325 mg per tab*120 [id number]: Take 1 Tab by mouth every 6 hours as needed for Pain,Breakthrough. Authorizing Provider: ALEX PINTO * Telephone Encounter - Eliezre Bernard [facility] - 10/20/2017 11:10 AM EST I have reviewed the patients controlled substance dispensing history in the Prescription Drug Monitoring Program in compliance with the [place] regulations before prescribing a controlled substance. PDMP checked on 10/20/2017. Patient requesting: Hydrocodone/Apap, filled 09/11/17, for #120 for a 30 day supply. Other recent controlled medication fills: none Medication due for refill: yes Please approve if appropriate. Thanks, Eliezer Bernard, R.Ph. Refill Pharmacist Refill Call Center [phone] 10/20/2017,11:10 AM * Telephone Encounter - Cecily George [facility] - 10/20/2017 10:15 AM EST Patient called requesting RX for HYDROcodone-acetaminophen 5-325 mg per tab 5- 325 MG per tablet last ordered 09/11/[address] Pinto ThanksCecily [facility] Refill Call Center 10/20/2017, 10:15 AM in this encounter Plan of Treatment Upcoming Encounters Date Type Specialty Care Team Description 11/25/2017 Nutrition Services Gastroenterology Christina Godfrey, RDN [address] [facility] [place] [address] [phone] 01/16/2018 Office Visit Internal Medicine Alex Pinto MD [address] [place] [address] [phone] 05/29/2018 Imaging Radiology [address] [place] [address] [phone] Health Maintenance Due Date Last Done Comments [...] Phone Address MEDICARE MEDICARE A AND B [id number] Medicare [place], [place] MEDICAID DENISHA Parks [facility] [id number] as of this encounter
--- OUTSIDE RECORDS SUMMARY | 2023-06-18 03:53 | External Medical Summary | Summary of Care ---
Author Name Unknown Organization [place] [address] Phone Care Team Providers Care Senior Reservoir Engineer Name Role Phone Marcela Pinto MD Primary Care Provider [phone] Reason for Visit * Reason Comments Weight Management 1 month f/u, medical mgmt Encounter Details Date Type Department Care Team Description 10/01/2017 Office Visit Nutrition & Weight Management, [facility] [address] [place] [address] Estephania Costa PA-C [address] [place] [address] [phone] Type 2 diabetes mellitus with hemoglobin A1c goal of less than 7.5% ([facility])*;COPD, moderate (HCC);Asthma with severity to be determined;Hyperlipid emia with target LDL less than 100;HTN, goal below 140/90;Sleep apnea, obstructive Allergies Active Allergy Reactions Severity Noted Date Comments Valsartan 07/10/2010 Enalapril 05/21/2006 Escitalopram Oxalate Nausea/vomiting 10/11/2009 Nauseated Iodinated Diagnostic Agents Nausea/vomiting 05/2010 IV Contrast Lisinopril 05/21/2006 Metoprolol Tartrate 11/18/2006 Made pulse low [place] Oil-Black Currant-Vit E 07/10/2010 Verapamil 03/21/2004 Bupropion [...] [facility]) USE TO TEST BLOOD SUGAR 4 TIMES [...] DilTIAZem HCl ER Coated Beads 360 MG [id number]:HTN , goal below 130/80 TAKE ONE CAPSULE [...] Pain, Breakthrough. 120 Tab 0 7 Active dicyclomine (BENTYL) 20 MG TabletIndications:C [...] 2 days 20 Tab 0 7 Active traZODone (DESYREL) 50 MG TabletIndications:P rimary insomnia [...] of colon 07/25/2011 COPD, moderate ([facility]) 07/19/2011 Overview: Dr Bhatti every 6 months Allergic rhinitis 07/19/2011 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 Asthma with severity to be determined Carpal tunnel syndrome EDEMA dependent, ankles Generalized osteoarthritis ACEI/ARB contraindicated as of this encounter Resolved Problems Problem Noted Date Resolved Date DM (diabetes mellitus), type 2 ([facility]) 08/07/2015 06/25/2017 Nausea 09/05/2012 06/25/2017 Overview: ICD-10 update of inactive term HTN, GOAL BELOW 140/80 06/01/2012 6 Overview: Per HTN Protocol #27. Hypoxemia 10/08/2011 10/30/2015 Genetic Sleep Disorder Research Other*[id number] 07/25/2011 05/15/2016 Obesity, morbid (more than 1 00 lbs over ideal weight or BMI > 40) ([facility]) 01/09/2010 08/19/2017 Overview: Per Obesity Taxonomy HTN, [...] of less than 7.0% ([facility]) 08/10/2009 12/03/2012 Overview: Per Diabetes Taxonomy. ICD-10 update of inactive term Type 2 diabetes mellitus wit h hemoglobin A1c goal of less than 7.0% ([facility]) 08/10/2009 Overview: Per Diabetes Taxonomy. ICD-10 update [...] No Alcohol Use Drinks/Week oz/Week Comments No Sex Assigned at Date Recorded Not on file as of this encounter Last Filed Vital Signs Vital Sign Reading Time Taken Blood Pressure 134/68 10/01/2017 1:15 PM EST Pulse 75 10/01/2017 1:15 PM EST Temperature - - Respiratory Rate - - Oxygen Saturation - - Inhaled Oxygen Concentration - - Weight 107 kg (235 lb 12.8 oz) 10/01/20 17 1:15 PM EST Height - - Body Mass Index 39.24 10/01/2017 1:15 PM EST in this encounter Progress Notes * Estephania Costa PA-C - 10/01/2017 2:00 PM EST Formatting of this note may be different from the original. [facility] Note Nina Harrington is a 76 year old female with a past medical history for asthma, degenerative joint disease, diabetes mellitus, hypercholesterolemia, hypertension, obstructive sleep apnea requiring nocturnal CPAP, GERD and morbid obesity, who presents to the [facility] for further recommendations. Wt Readings from Last 6 Encounters: 10/01/17 107 kg (235 lb 12.8 oz) 10/01/17 107.3 kg (236 lb 9.6 oz) 08/29/17 107.6 kg (237 lb 3.2 oz) 08/19/17 106.4 kg (234 lb 8 oz) 08/05/17 107.2 kg (236 lb 4 oz) 07/30/17 106.6 kg (235 lb) Patient is receiving ongoing education regarding dietary and physical modifications for weight loss. Patient is interested in the following treatment options for obesity: medical management. The patient was last seen in this clinic 06/29. Since that time the patient's weight has decreased 2 pounds. The patient's total weight change is -39 pounds. Review of Systems: The patient denies any chest pain, shortness of breath, palpitations or ankle edema. Since her lastvisit there have been no problems with Abdominal pain / cramps, Anxiety / nervousness, Binge Eating, Depression, Diarrhea, Dizziness and Hair loss. COPD/Asthma: Notes she saw PCP's office today and they checked an x-ray. Notes prednisone was called in for her due to shortness of breath. She was also given an inhaler by her packing machine can feeder to see if that improved her shortness of breath. DM: Blood sugars are running around 150 or less in the morning. She is having occasional low blood sugars in the evenings - notes this is around 88 for her. She did not tolerate metformin. HYPERCHOLESTEROLEMIA: The patient states that her cholesterol has been well controlled on her current medication. CHOLESTEROL(mg/dL) Jessica Dt/Tm Resulted Value Low High Status 06/23/17 11:48A 06/23/17 187 FINAL TRIGLYCERIDES(mg/dL) Jessica Dt/Tm Resulted Value Low High Status 06/23/17 11:48A 06/23/17 86 FINAL HDL(mg/dL) Jessica Dt/Tm Resulted Value Low High Status 06/23/17 11:48A 06/23/17 54 FINAL LDL (DIRECT MEASURE)(mg/dL) Jessica Dt/Tm Resulted Value Low High Status 06/23/17 11:48A 06/23/17 100 0 129 FINAL Current Medications: Current Outpatient Prescriptions Medication Sig Dispense Refill [...] TABLET BY MOUTH DAILY 90 Tab 1 HYDROcodone-acetaminophen 5-325 mg per [...] 1000 UNITS PO TABS one tablet daily dicyclomine (BENTYL) 20 MG Tablet TAKE 1 TABLET BY MOUTH EVERY DAY 90 Tab 2 CLONIDINE HCL 0.1 MG PO TABS One pill by mouth as needed for bp over 170/90 10 0 Water intake: yes, 3-4 bottles per day Prescribed diet: [id number] Low Fat CHO Modified Diet Current diet: --> Breakfast-- Boost - the kind for diabetics - 190 calories --> Snack-- cookies recently due to holidays --> Lunch--tuna fish sandwich and green beans or salad with tuna --> Snack--fruit --> Dinner--chicken; bowl of cereal --> Snack--boost if hungry --> Drinks-- water, coffee - 4-5 cups per day Food logs: No Type of exercise: limited due to shortness of breath recently Exercise: Times per week: Minutes per day: -- Weight loss Pharmacotherapy: no BP 134/68 | Pulse 75 | Wt 235 lbs 12.8 oz (106.958kg) | BMI 39.24 kg/m | BSA 2.22 m PHYSICAL EXAMINATION: General: Patient is in no acute distress, well groomed, well developed, well nourished. HEENT is unremarkable. NC/AT, sclera nonicteric, MMM. Neck is supple with full range of motion. Heart has normal S-1 and S-2. There is no murmurs or ectopy. RRR. Lungs are clear to auscultation. Normal wob, no wheezing/rhonchi/rales. Abdomen is soft, obese, non-distended, and non tender with normoactive bowel sounds. There are no hernias or masses appreciated. No rebound or guarding. Extremities are with edema non-pitting. Skin is without obvious rash. Psych is normal mood and affect Neuro No gait abnormality, speech is normal pitch and tone, no gross motor/sensory deficits. Assessment: Morbid Obesity: The above meal plan was reviewed again in detail with Nina Harrington. She will continue to increase her physical activity as prescribed. Continue to avoid all fruit juices and regular sodas. Increase water consumption to 64 ounces per day. Encourage to keep food logs and get weighed on a weekly basis. Goals for next month: 1. Try to avoid the temptations over the holidays 2. Watch portions at meals. Handouts provided today: 1. 1400 calorie diet 2. High protein/low carb snacks COPD/Asthma: Stable on current inhaler. Edema: Stable JORDAN: Continue nightly CPAP. HYPERTENSION: Blood pressure stable on the above medications. No interval change in antihypertensive medication. The patient will return to the [facility] in 4 weeks. She was instructed to call in the meantime with any questions or concerns prior to her next clinic visit. Case discussed with Dr. Adler. Estephania Costa PA-C in this encounter Nursing Notes * Joanna DEL CASTILLO LPN - 10/01/2017 2:00 PM EST Formatting of this note may be different from the original. Chief Complaint Patient presents with Weight Management 1 month f/u, medical mgmt SOB, hx COPD and asthma in this encounter Plan of Treatment Upcoming Encounters Date Type Specialty Care Team Description 11/25/2017 Nutrition Services Gastroenterology Christina Godfrey, RDN [address] [place] [address] [phone] 01/16/2018 Office Visit Internal Medicine Marcela Pinto MD [address] [place] [address] [phone] 05/29/2018 Imaging Radiology [address] [place] [phone] Health Maintenance Due Date Last Done Comments [...] of less than 7.5% (HCC) - Primary COPD, moderate (HCC) Chronic airway obstruction, not elsewhere classified Asthma with severity to be d etermined Hyperlipidemia with target L DL less than 100 Other and unspecified hyperlipidemia HTN, goal below 140/90 Unspecified essential hypertension Sleep apnea, obstructive Obstructive sleep apnea (adult) (pediatric) in this encounter Insurance Payer Benefit Plan / Group Subscriber ID Type Phone Address MEDICARE MEDICARE A AND B [id number] Medicare [place], [place] MEDICAID DENISHA Parks [facility] [id number] as of this encounter"
--- OUTSIDE RECORDS SUMMARY | 2023-06-18 03:53 | External Medical Summary | Summary of Care ---
Author Name Unknown Organization [facility] [address] Phone Care Team Providers Care Hydraulics Engineer Name Role Phone Marcela Pinto MD Primary Care Provider [phone] Reason for Visit * Reason Comments TEST RESULTS Encounter Details Date Type Department Care Team Description 09/01/2017 Telephone General Internal Medicine [facility] 200 [facility] [place] [address] Marcela Pinto MD 200 [place] [address] [phone] TEST RESULTS Allergies Active Allergy Reactions Severity Noted Date Comments Valsartan 07/10/2010 Enalapril 05/21/2006 Escitalopram Oxalate Nausea/vomiting 10/11/2009 Nauseated Iodinated Diagnostic Agents Nausea/vomiting 05/2010 IV Contrast Lisinopril 05/21/2006 Metoprolol Tartrate 11/18/2006 Made pulse low [place] Oil-Black Currant-Vit E 07/10/2010 Verapamil 03/21/2004 Bupropion [...] Tab 0 Active dicyclomine (BENTYL) 20 MG TabletIndications:Ch ronic constipation TAKE 1 TABLET EVERY DAY 90 Tab 2 02/13/2017 Active Glucose Blood (YEIMY CONTOUR TEST) STRPIndications:Type 2 diabetes mellitus with hemoglobin A1c goal of less than 7.0% ([facility]) USE TO TEST BLOOD SUGAR 4 TIMES A DAY FOR DIAGNOSIS CODE OF E11.9 100 Strip 5 02/25/2017 Active zafirlukast (ACCOLATE) 20 MG TabletIndications:As thma with severity to be determined TAKE 1 TABLET EVERY DAY 90 Tab 1 03/13/2017 Active aspirin enteric coated 81 MG TBEC Take 1 Tab by mouth daily. 100 Tab 3 03/16/2017 Active ondansetron ODT (ZOFRAN) 8 MG TBDPIndications:Marvin ea Place 1 Tab on tongue every 8 hours as needed for Nausea. DISSOLVE 1 TABLET IN MOUTH EVERY 8 HOURS NEEDED FOR NAUSEA 60 Tab 3 03/20/2017 Active glimepiride (AMARYL) 4 MG Tablet TAKE 1 TABLET BY MOUTH IN THE MORNING AND 1/2 TABLET BY MOUTH IN THE EVENING 135 Tab 1 03/31/2017 Active Multiple Vitamins-Minerals (ONE DAILY MULTIVITAMIN WOMEN) TABS one pill each day 04/21/2017 Active Terazosin HCl 2 MG Capsule Take 1 Cap by mouth daily. 90 Cap 1 04/29/2017 Active omeprazole (PRILOSEC) 20 MG CPDR TAKE 1 CAPSULE TWICE DAILY 180 Cap 1 05/05/2017 Active DilTIAZem HCl ER Coated Beads 360 MG [id number]:HTN, goal below 130/80 TAKE ONE CAPSULE BY [...] mg by mouth daily. 5 06/18/2017 Active HYDROcodone-acetamin ophen 5-325 mg per tab 5-325 MG per tabletIndications:Ge neralized osteoarthritis Take 1 Tab by mouth every 6 hours as needed for Pain, Breakthrough. 120 Tab 0 08/07/2017 Active COMBIVENT RESPIMAT 20-100 MCG/ACT InhalerIndications:A sthma [...] J45.909, J44.9 225 mL 1 08/27/2017 Active as of this encounter Active Problems [...] Hypoxemia 10/08/2011 10/30/2015 Genetic Sleep Disorder Research Other*[id number] 07/25/2011 05/15/2016 Obesity, morbid (more than 1 [...] Visit Internal Medicine Kristal Duvall, NIECY 200 [place] [address] [phone] 10/01/2017 Office Visit GastroenterEstephania Sanchez PA-C [address] [place] [address] [phone] 05/29/2018 Imaging Radiology M[facility]1, [address] [place] [address] [phone] Health Maintenance Due Date Last Done Comments [...] Phone Address MEDICARE MEDICARE A AND B [id number] Medicare [place] MEDICAID DENISHA Parks [facility] [id number] as of this encounter
--- OUTSIDE RECORDS SUMMARY | 2023-06-18 03:53 | External Medical Summary | Summary of Care ---
Author Name Unknown Organization [place] [address] Phone Care Team Providers Care Drywall Stripper Helper Name Role Phone Marcela Pinto MD Primary Care Provider [phone] Reason for Visit * Reason Comments eRx-Medication Refill Encounter Details Date Type Department Care Team Description 09/16/2017 Refill Gastroenterology, [facility] [address] [place] [address] Maurice Eagle DO [address] [facility] [place] [address] [phone] Chronic constipation Allergies Active Allergy Reactions Severity Noted Date Comments Valsartan 07/10/2010 Enalapril 05/21/2006 Escitalopram Oxalate Nausea/vomiting 10/11/2009 Nauseated Iodinated Diagnostic Agents Nausea/vomiting 05/2010 IV Contrast Lisinopril 05/21/2006 Metoprolol Tartrate 11/18/2006 Made pulse low [place] Oil-Black Currant-Vit E 07/10/2010 Verapamil 03/21/2004 Bupropion [...] DilTIAZem HCl ER Coated Beads 360 MG [id number]:HTN , goal below 130/80 TAKE ONE CAPSULE [...] Pain, Breakthrough. 120 Tab 0 7 Active traZODone (DESYREL) 50 MG TabletIndications:P rimary insomnia TAKE 1 TABLET BY MOUTH AT BEDTIME 30 Tab 5 7 Active dicyclomine (BENTYL) 20 MG TabletIndications:C hronic constipation TAKE 1 TABLET BY MOUTH EVERY DAY 90 Tab 2 7 Active dicyclomine (BENTYL) 20 MG TabletIndications:C hronic constipation TAKE 1 TABLET EVERY DAY 90 Tab 2 7 09/16/20 17 Discontinued as of this encounter Active Problems Problem Noted Date Lower GI bleed 04/21/2017 Irritable bowel syndrome with constipati on 04/21/2017 Elevated plasma metanephrines 02/20/2017 Type 2 diabetes mellitus with hemoglobin A1c goal of less than 7.5% ([facility]) 02/12/2017 Hypercalcemia 02/12/2017 Controlled substance agreement signed [...] Hypoxemia 10/08/2011 10/30/2015 Genetic Sleep Disorder Research Other*[id number] 07/25/2011 05/15/2016 Obesity, morbid (more than 1 [...] Telephone Encounter - Maurice Eagle DO - 09/16/2017 3:16 PM EST Signed Prescriptions: Disp Refills dicyclomine (BENTYL) 20 MG Tablet 90 Tab 2 Sig: TAKE 1 TABLET BY MOUTH EVERY DAY Authorizing Provider: MAURICE EAGLE * Telephone Encounter - Ashley Prescott RN - 09/16/2017 11:46 AM EST Pending Prescriptions: Disp Refills dicyclomine (BENTYL) 20 MG Tablet [Pharma*90 Tab 2 Sig: TAKE 1 TABLET BY MOUTH EVERY DAY * Telephone Encounter - Ashley Prescott, RN - 09/16/2017 11:45 AM EST Pending Prescriptions: Disp Refills dicyclomine (BENTYL) 20 MG Tablet [Pharma*90 Tab 2 Sig: TAKE 1 TABLET BY MOUTH EVERY DAY Last Office Visit: 07/01/2017 Next Office Visit: No Future Appointments If no future appointments scheduled, and last appointment is greater than a year ago, please schedule patient for a follow-up appointment Last date the medication was ordered: 02/2017 Labs: ALT(U/L) Jessica Dt/Tm Resulted Value Status [...] Description 10/01/2017 Office Visit Internal Medicine Kristal Duvall CRNP 200 [facility], [place] [address] [phone] 10/01/2017 Office Visit Gastroenterology Estephania Costa PA-C [address] [place] [address] [phone] 05/29/[address] [facility], [address] [place] [address] [phone] Health Maintenance Due Date Last Done Comments [...] Chronic constipation Unspecified constipation in this encounter Insurance Payer Benefit Plan / Group Subscriber ID Type Phone Address MEDICARE MEDICARE A AND B [id number] Medicare [place], [place] MEDICAID [place] [id number] as of this encounter
--- OUTSIDE RECORDS SUMMARY | 2023-06-18 03:53 | External Medical Summary | Summary of Care ---
Author Name Unknown Organization [place] [address] Phone Care Team Providers Care Windsmith Name Role Phone Alex Pinto MD Primary Care Provider [phone] Reason for Visit * Reason Comments eRx-Medication Refill Encounter Details Date Type Department Care Team Description 09/13/2017 Refill General Internal Medicine [facility] [address] [facility] [address] Alex Pinto MD 200 [place] [address] [phone] Primary insomnia* Allergies Active Allergy Reactions Severity Noted Date Comments Valsartan 07/10/2010 Enalapril 05/21/2006 Escitalopram Oxalate Nausea/vomiting 10/11/2009 Nauseated Iodinated Diagnostic Agents Nausea/vomiting 05/2010 IV Contrast Lisinopril 05/21/2006 Metoprolol Tartrate 11/18/2006 Made pulse low [place] Oil-Black Currant-Vit E 07/10/2010 Verapamil 03/21/2004 Bupropion [...] 03/16/2017 Active ondansetron ODT (ZOFRAN) 8 MG TBDPIndications:Naus ea Place 1 Tab on tongue every [...] DilTIAZem HCl ER Coated Beads 360 MG HO60Glzhyebaqet:HTN, goal below 130/80 TAKE ONE CAPSULE BY [...] Pain, Breakthrough. 120 Tab 0 09/11/2017 Active traZODone (DESYREL) 50 MG TabletIndications:Pr imary insomnia TAKE 1 TABLET BY MOUTH AT BEDTIME 30 Tab 5 09/15/2017 Active as of this encounter Active Problems [...] Hypoxemia 10/08/2011 10/30/2015 Genetic Sleep Disorder Research Other*[id number] 07/25/2011 05/15/2016 Obesity, morbid (more than 1 [...] less than 7.0% ([facility]) 08/10/2009 12/03/2012 Overview: Per Diabetes Taxonomy. ICD-10 update of inactive term Type 2 diabetes mellitus wit h hemoglobin A1c goal of less than 7.0% ([facility]) 08/10/2009 Overview: Per Diabetes [...] Telephone Encounter - Alex Pinto MD - 09/15/2017 12:57 PM EST Signed Prescriptions: Disp Refills traZODone (DESYREL) 50 MG Tablet 30 Tab 5 Sig: TAKE 1 TABLET BY MOUTH AT BEDTIME Authorizing Provider: ALEX PINTO * Telephone Encounter - Nicole Saeed LPN - 09/15/2017 12:50 PM EST Pending Prescriptions: Disp Refills traZODone (DESYREL) 50 MG Tablet [Pharmac*30 Tab 5 Sig: TAKE 1 TABLET BY MOUTH AT BEDTIME * Telephone Encounter - Nicole Saeed LPN - 09/15/2017 12:43 PM EST Formatting of this note may be different from the original. Pending Prescriptions: Disp Refills traZODone (DESYREL) 50 MG Tablet [Pharmac*30 Tab 5 Sig: TAKE 1 TABLET BY MOUTH AT BEDTIME Last Office Visit: 08/29/2017 Next Office Visit: 10/01/2017 Scheduled Provider(s): NIECY Eagle Last date the medication was ordered: Ok to refill? Med was discontinued. 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 COPD, moderate (HCC) J44.9 Allergic rhinitis J30.9 Diverticulitis of colon K57.32 Nocturnal hypoxia G47.34 Sleep apnea, obstructive G47.33 Incisional hernia K43.2 ACEI/ARB contraindicated [id number] HTN, goal below 140/90 I10 Hyperlipidemia with target LDL less than 100 E78.5 Obesity, Class II, BMI 35.0-39.9, with comorbidity (see actual BMI) E66.9 Controlled substance agreement signed Z79.899 Type 2 diabetes mellitus with hemoglobin A1c goal of less than 7.5% ([facility]) E11.9 Hypercalcemia E83.52 Elevated plasma metanephrines R79.89 Lower GI bleed K92.2 Irritable bowel syndrome with constipation K58.1 Labs: CREATININE(mg/dL) Jessica Dt/Tm Resulted Value Status [...] Visit Internal Medicine Kristal Duvall CRNP [address] [place] [address] [phone] 10/01/2017 Office Visit Gastroenterology Estephania Costa PA-C [address] [place] [address] [phone] 05/29/2018 Imaging Radiology [address] [place] [id number] Health Maintenance Due Date Last Done Comments [...] fileas of this encounter Visit Diagnoses Diagnosis Primary insomnia - Primary Persistent disorder of initiating or maintaining sleep in this encounter Insurance Payer Benefit Plan / Group Subscriber ID Type Phone Address MEDICARE MEDICARE A AND B [id number] Medicare [place], [place] MEDICAID DENISHA Parks [facility] [id number] as of this encounter
--- OUTSIDE RECORDS SUMMARY | 2023-06-18 03:53 | External Medical Summary | Summary of Care ---
Author Name Unknown Organization [place] [address] Phone Care Team Providers Care Steward/Stewardess Name Role Phone Marcela Pinto MD Primary Care Provider Encounter Details Date Type Department Care Team Description 09/08/2017 Scan Encounter Unspecified Department <No scans attached> Allergies Active Allergy Reactions Severity Noted Date Comments Valsartan 07/10/2010 Enalapril 05/21/2006 Escitalopram Oxalate Nausea/vomiting 10/11/2009 Nauseated Iodinated Diagnostic Agents Nausea/vomiting 05/2010 IV Contrast Lisinopril 05/21/2006 Metoprolol Tartrate 11/18/2006 Made pulse low [place] Oil-Black Currant-Vit E 07/10/2010 Verapamil 03/21/2004 Bupropion [...] DilTIAZem HCl ER Coated Beads 360 MG EP25Qliurqzsqrx:HTN, goal below 130/80 TAKE ONE CAPSULE BY [...] Diverticulitis of colon 07/25/2011 COPD, moderate ([facility]) 07/19/2011 Overview: Dr Bhatti [...] Hypoxemia 10/08/2011 10/30/2015 Genetic Sleep Disorder Research Other*[id number] 07/25/2011 05/15/2016 Obesity, morbid (more than 1 [...] Internal Medicine Kristal Duvall, NIECY [address] [place] [address] [phone] 10/01/2017 Office Visit Gastroenterology Estephania Costa PA-C [address] [place] [address] [phone] 05/29/2018 Imaging Radiology [address] [place] [address] [phone] Health Maintenance Due Date Last Done Comments [...] Phone Address MEDICARE MEDICARE A AND B [id number] Medicare [place] MEDICAID DENISHA Parks [facility] [id number] as of this encounter
--- OUTSIDE RECORDS SUMMARY | 2023-06-18 03:53 | External Medical Summary | Summary of Care ---
Author Name Unknown Organization [place] [address] Phone Care Team Providers Care Therapeutic Dietitian Name Role Phone Marcela Pinto MD Primary Care Provider [phone] Reason for Visit * Reason Comments Encounter Created in Error Encounter Details Date Type Department Care Team Description 02/07/2017 Telephone Family Practice [facility] 132 [facility] [place] [address] Vargas Hernández MD [address] [place] [address] Encounter Created in Error Allergies Active Allergy Reactions Severity Noted Date Comments Valsartan 07/10/2010 Enalapril 05/21/2006 Escitalopram Oxalate Nausea/vomiting 10/11/2009 Nauseated Iodinated Diagnostic Agents Nausea/vomiting 05/2010 IV Contrast Lisinopril 05/21/2006 Metoprolol Tartrate 11/18/2006 Made pulse low [place] Oil-Black Currant-Vit E 07/10/2010 Verapamil 03/21/2004 Bupropion [...] time with Prednisone. 2 Tab 0 Active as of this encounter Active Problems [...] Hypoxemia 10/08/2011 10/30/2015 Genetic Sleep Disorder Research Other*[id number] 07/25/2011 05/15/2016 Obesity, morbid (more than 1 [...] Immunizations Name Dates Previously Given Next Due Pneumococcal Conjugate Vacc, 13 Valent (Prevnar) 03/28/2015 [...] Internal Medicine Kristal Duvall, NIECY [address] [facility] [address] [phone] 10/01/2017 Office Visit Gastroenterology Estephania Costa PA-C [address] [place] [address] [phone] 05/29/2018 Imaging Radiology [address] [place] [address] [phone] Health Maintenance Due Date Last Done Comments [...] Phone Address MEDICARE MEDICARE A AND B [id number] Medicare [place], [place] MEDICAID DENISHA Parks [facility] [id number] as of this encounter
--- OUTSIDE RECORDS SUMMARY | 2023-06-18 03:53 | External Medical Summary | Summary of Care ---
Author Name Unknown Organization [place] [address] Phone Care Team Providers Care Swing Tender Name Role Phone Alex Pinto MD Primary Care Provider [phone] Reason for Visit * Reason Comments eRx-Medication Refill Encounter Details Date Type Department Care Team Description 09/20/2017 Refill General Internal Medicine [facility] 200 [place] [address] Alex Pinto MD 200 [place] [address] [phone] Type 2 diabetes mellitus with hemoglobin A1c goal of less than 7.5% ([facility])*;HTN, goal below 140/90 Allergies Active Allergy Reactions Severity Noted Date Comments Valsartan 07/10/2010 Enalapril 05/21/2006 Escitalopram Oxalate Nausea/vomiting 10/11/2009 Nauseated Iodinated Diagnostic Agents Nausea/vomiting 05/2010 IV Contrast Lisinopril 05/21/2006 Metoprolol Tartrate 11/18/2006 Made pulse low [place] Oil-Black Currant-Vit E 07/10/2010 Verapamil 03/21/2004 Bupropion [...] of less than 7.0% ([facility]) USE TO TEST BLOOD SUGAR 4 TIMES A DAY FOR DIAGNOSIS CODE OF E11.9 100 Strip 5 7 Active aspirin enteric coated 81 MG TBEC Take 1 Tab by mouth daily. 100 Tab 3 7 Active ondansetron ODT (ZOFRAN) 8 MG TBDPIndications:Davdi sea Place 1 Tab on tongue every [...] DilTIAZem HCl ER Coated Beads 360 MG [id number]:HTN , goal below 130/80 TAKE ONE CAPSULE [...] MOUTH DAILY 90 Tab 1 7 Active glimepiride (AMARYL) 4 MG Tablet TAKE 1 TABLET BY MOUTH IN THE MORNING AND 1/2 TABLET BY MOUTH IN THE EVENING 135 Tab 1 7 09/20/20 17 Discontinued as of this encounter Active [...] DM (diabetes mellitus), type 2 ([facility]) 08/07/2015 06/25/2017 Nausea 09/05/2012 06/25/2017 Overview: ICD-10 update of inactive term HTN, GOAL BELOW 140/80 06/01/2012 6 Overview: Per HTN Protocol #27. Hypoxemia 10/08/2011 10/30/2015 Genetic Sleep Disorder Research Other*[id number] 07/25/2011 05/15/2016 Obesity, morbid (more than 1 00 lbs over ideal weight or BMI > 40) ([facility]) 01/09/2010 08/19/2017 Overview: Per Obesity Taxonomy HTN, [...] of less than 7.0% ([facility]) 08/10/2009 12/03/2012 Overview: Per Diabetes Taxonomy. ICD-10 update of inactive term Type 2 diabetes mellitus wit h hemoglobin A1c goal of less than 7.0% ([facility]) 08/10/2009 Overview: Per Diabetes Taxonomy. ICD-10 update [...] Telephone Encounter - Alex Pinto MD - 09/23/2017 1:07 PM EST Signed Prescriptions: Disp Refills glimepiride (AMARYL) 4 MG Tablet 135 Tab1 Sig: TAKE 1 TABLET BY MOUTH IN THE MORNING AND 1/2 TABLET BY MOUTH IN THE EVENING Authorizing Provider: ALEX PINTO KLOR-CON M20 20 MEQ TBCR 90 Tab 1 Sig: TAKE 1 TABLET BY MOUTH DAILY Authorizing Provider: ALEX PINTO * Telephone Encounter - Nicole Saeed LPN - 09/22/2017 9:40 AM EST Pending Prescriptions: Disp Refills glimepiride (AMARYL) 4 MG Tablet [Pharmac*135 Tab1 Sig: TAKE 1 TABLET BY MOUTH IN THE MORNING AND 1/2 TABLET BY MOUTH IN THE EVENING KLOR-CON M20 20 MEQ TBCR [Pharmacy Med Na*90 Tab 1 Sig: TAKE 1 TABLET BY MOUTH DAILY * Telephone Encounter - Nicole Saeed LPN - 09/22/2017 9:39 AM EST Formatting of this note may be different from the original. Pending Prescriptions: Disp Refills glimepiride (AMARYL) 4 MG Tablet [Pharmac*135 Tab1 Sig: TAKE 1 TABLET BY MOUTH IN THE MORNING AND 1/2 TABLET BY MOUTH IN THE EVENING KLOR-CON M20 20 MEQ TBCR [Pharmacy Med Na*90 Tab 1 Sig: TAKE 1 TABLET BY MOUTH DAILY Last Office Visit: 08/29/2017 Next Office Visit: 10/01/2017 Scheduled Provider(s): NIECY Eagle Last date the medication was ordered: 03/31/17 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 COPD, moderate (HCC) J44.9 Allergic rhinitis J30.9 Diverticulitis of colon K57.32 Nocturnal hypoxia G47.34 Sleep apnea, obstructive G47.33 Incisional hernia K43.2 ACEI/ARB contraindicated [id number] HTN, goal below 140/90 I10 Hyperlipidemia with [...] Visit Internal Medicine Kristal Duvall, NIECY 200 [place] [address] [phone] 10/01/2017 Office Visit Gastroenterology Estephania Costa PA-C [address] [place] [address] [phone] 05/29/2018 Imaging Radiology [facility] [place] [address] [phone] Health Maintenance Due Date Last Done Comments [...] of less than 7.5% (HCC) - Primary HTN, goal below 140/90 Unspecified essential hypertension in this encounter Insurance Payer Benefit Plan / Group Subscriber ID Type Phone Address MEDICARE MEDICARE A AND B [id number] Medicare [place], [place] MEDICAID DENISHA Parks [facility] [id number] as of this encounter
--- OUTSIDE RECORDS SUMMARY | 2023-06-18 03:54 | External Medical Summary ---
Author Name Unknown Address [facility] [address] [place] [id number] Phone Organization K01:[place] [address] [address] [place] [id number] Laboratory Report Ordering Provider Test Date Status LAURENCE DAVIS 05/19/2017 12:11:00 Final Observation Date Value Abnormality Reference Status TSH 05/19/2017 23:26 0.88 0.27-4.2 Fin al Performing Location [place] [id number]
--- OUTSIDE RECORDS SUMMARY | 2023-06-18 03:54 | External Medical Summary ---
Author Name Unknown Address [facility] [place] [address] Phone Organization K01:[facility] [address] [place] [id number] Laboratory Report Ordering Provider Test Date Status JOSE A JOHNSON 05/19/2017 12:09:00 Final Observation Date Value Abnormality Reference Status Protein, Urine 05/19/2017 22:56 10 Final Performing Location [facility] [address] [place] [id number]
--- OUTSIDE RECORDS SUMMARY | 2023-06-18 03:54 | External Medical Summary ---
Author Name Unknown Address [address] [place] [address] [facility] Phone Organization K01:[place] [address] [place] [id number] Laboratory Report Ordering Provider Test Date Status BEBE DAVISCAMRYN 05/19/2017 12:11:00 Final Observation Date Value Abnormality Reference Status Albumin 05/19/2017 22:56 4.2 3.8-5.0 Fin al AST (Aspartate aminotransferase) 05/19/2017 22:56 12 10-35 Final Alk Phos 05/19/2017 22:56 96 0-153 Fin al ALT (Alanine aminotransferase) 05/19/2017 22:56 12 10-35 Final Bilirubin, Total 05/19/2017 22:56 <0.2 0-1.2 Final Bilirubin, Direct 05/19/2017 22:56 <0.2 0-0.3 Final Protein 05/19/2017 22:56 7.0 6.0-8.3 Fin al Performing Location [address] [address]
--- OUTSIDE RECORDS SUMMARY | 2023-06-18 03:54 | External Medical Summary ---
Author Name Unknown Address [facility] [place] [address] Phone Organization K01:[place] [address] [place] [address] Laboratory Report Ordering Provider Test Date Status TALIB BOYD 07/30/2017 14:24:00 Final Observation Date Value Abnormality Reference Status Color of Urine by Auto 07/30/2017 17:39 STRAW Abnormal YEL Final Clarity, Urine 07/30/2017 17:39 CLEAR CLEAR Final Glucose [Mass/volume] in Urine by Automated test strip 07/30/2017 17:39 NEGATIVE NEG Final Bilirubin.total [Presence] in Urine by Automated test strip 07/30/2017 17:39 NEGATIVE NEG Final Ketones [Mass/volume] in Urine by Automated test strip 07/30/2017 17:39 NEGATIVE NEG Final Specific gravity, Urine 07/30/2017 17:39 1.015 1.003-1.030 Final Hemoglobin [Presence] in Urine by Automated test strip 07/30/2017 17:39 NEGATIVE NEG Final pH, Urine 07/30/2017 17:39 6.0 5.0-7.5 Final Protein [Mass/volume] in Urine by Automated test strip 07/30/2017 17:39 NEGATIVE NEG Final Urobilinogen [Mass/volume] in Urine by Automated test strip 07/30/2017 17:39 NORMAL NORM Final Nitrite [Presence] in Urine by Automated test strip 07/30/2017 17:39 NEGATIVE NEG Final Leukocyte esterase [Presence] in Urine by Automated test strip 07/30/2017 17:39 NEGATIVE NEG Final Testosterone Comment 07/30/2017 17:39 SCREEN NEGATIVE - MICROSCOPIC NOT DONE Final Performing Location [address] [address]
--- OUTSIDE RECORDS SUMMARY | 2023-06-18 03:54 | External Medical Summary ---
Author Name Unknown Address [facility]note 3] [place] [address] Phone Organization K01:[facility] [address] [place] [id number] Laboratory Report Ordering Provider Test Date Status LAURENCE DAVIS 05/19/2017 12:11:00 Final Observation Date Value Abnormality Reference Status BUN 05/19/2017 22:56 16 6-20 Fin al Creatinine 05/19/2017 22:56 1.0 0.5-1.0 Fi nal Performing Location [facility] [address] [place] [id number]
--- OUTSIDE RECORDS SUMMARY | 2023-06-18 03:54 | External Medical Summary ---
Author Name Unknown Address [address] [place] [address] Phone Organization K09:[facility] [address] [place] [address] Laboratory Report Ordering Provider Test Date Status TALIB BOYD NIECY 07/30/2017 14:19:00 Final Observation Date Value Abnormality Reference Status WBC, Total 07/30/2017 14:26 11.83 Above high normal 4.00 -10.80 Final RBC 07/30/2017 14:26 4.23 3.85-5.15 Fin al Hemoglobin 07/30/2017 14:26 12.1 12.0-15.3 Fi nal HCT 07/30/2017 14:26 38.2 36.0-45.2 Fin al MCV 07/30/2017 14:26 90.3 81.5-97.5 Fin al MCH 07/30/2017 14:26 28.6 27.0-34.0 Fin al MCHC 07/30/2017 14:26 31.7 Below low normal 32.0-3 6.0 Final RDW 07/30/2017 14:26 13.4 11.5-15.5 Fin al Platelets 07/30/2017 14:26 327 140-400 Fin al MPV 07/30/2017 14:26 9.4 6.6-11.1 Fin al Performing [place] [facility] [address] [place] [address]
--- OUTSIDE RECORDS SUMMARY | 2023-06-18 03:54 | External Medical Summary | Summary of Care ---
Author Name Unknown Organization [place] [address] Phone Care Team Providers Care Hull Outfit Supervisor Name Role Phone Marcela Pinto MD Primary Care Provider [phone] Reason for Visit * Reason Comments BACK PAIN Encounter Details Date Type Department Care Team Description 08/19/2017 Office Visit Internal Medicine [address] [id number] Kristal Duvall, NIECY [address] [place] [address] [phone] Mid back pain on left side*;Type 2 diabetes mellitus with hemoglobin A1c goal of less than 7.5% ([facility]);COPD, moderate ([facility]) Allergies Active Allergy Reactions Severity Noted Date Comments Valsartan 07/10/2010 Enalapril 05/21/2006 Escitalopram Oxalate Nausea/vomiting 10/11/2009 Nauseated Iodinated Diagnostic Agents Nausea/vomiting 05/2010 IV Contrast Lisinopril 05/21/2006 Metoprolol Tartrate 11/18/2006 Made pulse low [place] Oil-Black Currant-Vit E 07/10/2010 Verapamil 03/21/2004 Bupropion [...] day. . 2 Bottle 3 6 Active albuterol sulfate (PROVENTIL) (2.5 MG/3ML) 0.083% nebulizer solutionIndications :Asthma with severity to be determined,COPD, moderate (HCC) USE ONE NEBULIZER TREATMENT TWICE A DAY NEEDED FOR WORSENING ASTHMA. J45.909, J44.9 225 mL 1 7 Active diphenhydramine (BENADRYL) 25 MG Tablet Take [...] DilTIAZem HCl ER Coated Beads 360 MG [id number]:HTN , goal below 130/80 TAKE ONE CAPSULE [...] a day. 20 Tab 0 7 Active traZODone (DESYREL) 50 MG TabletIndications:P rimary insomnia Take 1 Tab by mouth at bedtime. 30 Tab 5 7 08/19/20 17 Discontinued as of this encounter Active Problems Problem Noted Date Lower GI bleed 04/21/2017 Irritable bowel syndrome with constipati on 04/21/2017 Elevated plasma metanephrines 02/20/2017 Type 2 diabetes mellitus with hemoglobin A1c goal of less than 7.5% ([facility]) 02/12/2017 Hypercalcemia 02/12/2017 Controlled [...] AHP Diverticulitis of colon 07/25/2011 COPD, moderate ([facility]) 07/19/2011 Overview: Dr Bhatti every 6 months Allergic rhinitis 07/19/2011 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 Asthma with severity to be determined Carpal tunnel syndrome EDEMA dependent, ankles Generalized osteoarthritis ACEI/ARB contraindicated as of this encounter Resolved Problems Problem Noted Date Resolved Date DM (diabetes mellitus), type 2 ([facility]) 08/07/2015 06/25/2017 Nausea 09/05/2012 06/25/2017 Overview: ICD-10 update of inactive term HTN, GOAL BELOW 140/80 06/01/2012 6 Overview: Per HTN Protocol #27. Hypoxemia 10/08/2011 10/30/2015 Genetic Sleep Disorder Research Other*[id number] 07/25/2011 05/15/2016 Obesity, morbid (more than 1 [...] less than 7.0% ([facility]) 08/10/2009 12/03/2012 Overview: Per Diabetes Taxonomy. ICD-10 update of inactive term Type 2 diabetes mellitus wit h hemoglobin A1c goal of less than 7.0% ([facility]) 08/10/2009 Overview: Per Diabetes [...] Vital Sign Reading Time Taken Blood Pressure 132/62 08/19/2017 12:18 PM EST Pulse 72 08/19/2017 12:18 PM EST Temperature 36.3 C (97.4 F) 08/19/2017 1 2:18 PM EST Respiratory Rate 16 08/19/2017 12:1 8 PM EST Oxygen Saturation - - Inhaled Oxygen Concentration - - Weight 106.4 kg (234 lb 8 oz) 7 12:18 PM EST Height - - Body Mass Index 39.02 08/19/2017 12:18 PM EST in this encounter Progress Notes * Kristal Duvall CRNP - 08/19/2017 12:20 PM EST Formatting of this note may be different from the original. Subjective: Nina Harrington is a 76 year old female. Chief Complaint Patient presents with BACK PAIN HPI: Pt here with PMH as listed below with c/o left sided mid back pain. She denies injury. She states she has had been going for a long time. She states she can reproduce pain by palpating and with twisting of her torso. She feels the muscles are tense. She denies associated urinary or bowel symptoms. Abdominal pain has resolved with treatment to cover diverticulitis. She had recent urine testing that was negative. She was recently evaluated by GI, has EGD f/u scheduled for March. Bp stable. Weight stable. She denies other health complaints at this time. ROS: Denies syncope, fever, chills, GRAVES, stiff neck, swollen glands, cp, sob, wheezing, myalgias, n/v/d, blood in stool, dysuria, hematuria, urgency frequency, hesitancy with urination, or weakness, numbness, tingling, or swelling in the extremities or rash. 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 Obesity, morbid (more than 100 lbs over ideal weight or BMI > 40) ([facility]) E66.01 COPD, moderate ([facility]) J44.9 Allergic rhinitis J30.9 Diverticulitis of colon K57.32 Nocturnal hypoxia G47.34 Sleep apnea, obstructive G47.33 Incisional hernia K43.2 ACEI/ARB contraindicated [id number] HTN, goal below 140/90 I10 Hyperlipidemia with target LDL less than 100 E78.5 Obesity, Class II, BMI 35.0-39.9, with comorbidity (see actual BMI) E66.9 Controlled substance agreement signed Z79.899 Type 2 diabetes mellitus with hemoglobin A1c goal of less than 7.5% ([facility]) E11.9 Hypercalcemia E83.52 Elevated plasma metanephrines R79.89 Lower GI bleed K92.2 Irritable bowel syndrome with constipation K58.1 Current Outpatient Prescriptions Medication Sig Dispense Refill COMBIVENT RESPIMAT 20-100 [...] HOURS NEEDED FOR NAUSEA 60 Tab 3 traZODone (DESYREL) 50 MG Tablet Take 1 Tab by mouth at bedtime. 30 Tab 5 zafirlukast (ACCOLATE) 20 MG Tablet TAKE 1 [...] scan time with Prednisone. 2 Tab 0 albuterol sulfate (PROVENTIL) (2.5 MG/3ML) 0.083% nebulizer solution USE ONE NEBULIZER TREATMENT TWICE A DAY NEEDED FOR WORSENING ASTHMA. J45.909, J44.9 225 mL 1 polyethylene glycol 3350 (MIRALAX) 255 gram [...] Contrast Lisinopril Metoprolol Tartrate Made pulse low [place] Oil-Black Currant-Vit E Verapamil Wellbutrin [Bupropion Hcl] [...] diverticulosis, repeat 3 yrs/[facility] COLONOSCOPY, W/BIOPSY 03/20/12 hyperplastic polyps rpt 3 years. EGD, FLEXIBLE, DIAGNOSTIC 04/29/2014 normal/inpt [facility] EGD, FLEXIBLE, DIAGNOSTIC 05/29/2016 fundic submucosal mass/inpt [facility] EGD, FLEXIBLE,W/ENDOSCOPIC US 11/08/2016 inflammatory changes, stomach lesion, repeat EUS 1.5 yrs/[facility] INCISIONAL HERNIA REPAIR, LAP, REDUCIBLE 09/29/12 Repair of incarcerated supraumbilical (incisional) hernia with [facility] mesh 09/29/12 LIGATE/CUT OVIDUCT(S) REMOVAL OF TONSILS, AGE 12+ age 11 REMOVE GALLBLADDER 1960 SIGMOIDOSCOPY, DIAGNOSTIC 04/29/2014 stool in rectum/inpt [facility] 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, 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 Main Topics Smoking status: Never Smoker Smokeless tobacco: Never Used Alcohol use No Drug use: No Sexual activity: Not Currently Other Topics Concern Blood Transfusions No 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 Narrative OBJECTIVE: BP 132/62 | Pulse 72 | Temp (Src) 97.4 (Tympanic) | Resp 16 | Wt 234 lbs 8 oz (106.369kg) | BMI 39.02 kg/m | BSA 2.21 m PHYSICAL EXAM: General: alert, no acute distress, well nourished and cooperative Extremities: no edema, no skin discoloration Neuro Exam: alert & oriented x 3 with fluent speech, no focal motor/sensory deficits Skin: skin color, texture, turgor are normal, no rash Back:left mid back, erector spinae muscle tenderness, spasm, pain reproduced with twisting, no skindiscoloration or rash, no vertebral tenderness ASSESSMENT/PLAN: M54.9 Mid back pain on left side (primary encounter diagnosis) Plan: Thoracic spine ap & lateral Baclofen 10 mg po tabs Sig:Take 1 tab by mouth 2 times a day. E11.9 Type 2 diabetes mellitus with hemoglobin a1c goal of less than 7.5% (hcc) Well controlled J44.9 Copd, moderate (hcc) Followed by pulmonary Follow-up as needed for worsening symptoms or as directed with pcp. NIECY [place] in this encounter Plan of Treatment Upcoming Encounters Date Type Specialty Care Team Description 08/25/2017 Office Visit Gastroenterology Estephania Costa PA-C [address] [place] [address] [phone] 10/02/2017 Office Visit Internal Medicine Marcela Pinto MD [address] [place] [address] [phone] 05/29/2018 Imaging Radiology [address] [place] [address] [phone] Pending Results Name Priority Associated Diagnoses Date/Ti me THORACIC SPINE AP & LATERAL Routine Mid back pain on left side 08/19/2017 12:49 PM EST Scheduled Tests Name Priority Associated Diagnoses Order S chedule THORACIC SPINE AP & LATERAL Routine Mid back pain on left side Expected: 08/19/2017, Expires: 09/18/2018 Health Maintenance Due Date Last Done Comments [...] fileas of this encounter Visit Diagnoses Diagnosis Mid back pain on left side - Primary Pain in thoracic spine Type 2 diabetes mellitus wit h hemoglobin A1c goal of less than 7.5% (HCC) COPD, moderate (HCC) Chronic airway obstruction, not elsewhere classified in this encounter Insurance Payer Benefit Plan / Group Subscriber ID Type Phone Address MEDICARE MEDICARE A AND B [id number] Medicare [place], [place] MEDICAID DENISHA Parks [facility] [id number] as of this encounter"
--- OUTSIDE RECORDS SUMMARY | 2023-06-18 03:54 | External Medical Summary ---
Author Name Unknown Address [address] [place], [place] [address] Phone Organization K09:[facility] [address] [place] [address] Laboratory Report Ordering Provider Test Date Status TALIB BOYD 07/30/2017 14:19:00 Final Observation Date Value Abnormality Reference Status BUN 07/30/2017 15:05 18 6-20 Fin al Creatinine 07/30/2017 15:05 0.9 0.5-1.0 Fi nal Performing Location [facility] [address] [place] [address]
--- OUTSIDE RECORDS SUMMARY | 2023-06-18 03:54 | External Medical Summary | Summary of Care ---
Author Name Unknown Organization [facility] [place] [address] Phone Care Team Providers Care [employer] Tire Repairer Name Role Phone Marcela Pinto MD Primary Care Provider [phone] Reason for Visit * Reason Comments TEST RESULTS Encounter Details Date Type Department Care Team Description 08/21/2017 Telephone General Internal Medicine [facility] [address] [place] [address] Kristal Duvall, SOFTWARE QUALITY TESTER [address] [place] [address] [phone] TEST RESULTS Allergies Active Allergy Reactions Severity Noted Date Comments Valsartan 07/10/2010 Enalapril 05/21/2006 Escitalopram Oxalate Nausea/vomiting 10/11/2009 Nauseated Iodinated Diagnostic Agents Nausea/vomiting 05/2010 IV Contrast Lisinopril 05/21/2006 Metoprolol Tartrate 11/18/2006 Made pulse low [place] Oil-Black Currant-Vit E 07/10/2010 Verapamil 03/21/2004 Bupropion [...] day. . 2 Bottle 3 10/01/2016 Active albuterol sulfate (PROVENTIL) (2.5 MG/3ML) 0.083% nebulizer solutionIndications: Asthma with severity to be determined,COPD, moderate ([facility]) USE ONE NEBULIZER TREATMENT TWICE A DAY NEEDED FOR WORSENING ASTHMA. J45.909, J44.9 225 mL 1 11/21/2016 Active diphenhydramine (BENADRYL) 25 MG Tablet Take [...] DilTIAZem HCl ER Coated Beads 360 MG [id number]:HTN, goal below 130/80 TAKE ONE CAPSULE BY [...] a day. 20 Tab 0 08/19/2017 Active doxycycline hyclate 100 MG CapsuleIndications:O pacity of lung on imaging study Take 1 Cap by mouth 2 times a day for 7 days. Take for 7 days 14 Cap 0 08/21/2017 7 Active as of this encounter Active Problems [...] Hypoxemia 10/08/2011 10/30/2015 Genetic Sleep Disorder Research Other*[id number] 07/25/2011 05/15/2016 Obesity, morbid (more than 1 00 lbs over ideal weight or BMI > 40) ([facility]) 01/09/2010 08/19/2017 Overview: Per Obesity [...] Internal Medicine Marcela Pinto MD [address] [facility] [address] [phone] 09/10/2017 Office Visit Gastroenterology Estephania Costa PA-C [address] [place] [address] [phone] 10/02/2017 Office Visit Internal Medicine Marcela Pinto MD [address] [place] [address] [phone] 05/29/2018 Imaging Radiology [address] [place] [id number] Scheduled Tests Name Priority Associated Diagnoses Order S chedule CXR 2 VIEWS AP/PA & LATERAL Routine Opacity of lung on imaging study Expected: 09/11/2017, Expires: 09/20/2018 Health Maintenance Due Date Last Done Comments [...] fileas of this encounter Visit Diagnoses Diagnosis Opacity of lung on imaging s johnnydy - Primary in this encounter Insurance Payer Benefit Plan / Group Subscriber ID Type Phone Address MEDICARE MEDICARE A AND B [id number] Medicare [place], [place] MEDICAID DENISHA Parks [employer] [id number] as of this encounter
--- OUTSIDE RECORDS SUMMARY | 2023-06-18 03:54 | External Medical Summary ---
Author Name Unknown Address [address] [place] [address] [place] [address] Phone Organization K08:[address] [place] [address] Laboratory Report Ordering Provider Test Date Status TALIB BOYD 06/23/2017 11:48:00 Final Observation Date Value Abnormality Reference Status WBC, Total 06/23/2017 12:17 11.70 Above high normal 4.00 -10.80 Final RBC 06/23/2017 12:17 3.93 3.85-5.15 Fin al Hemoglobin 06/23/2017 12:17 11.3 Below low normal 12.0- 15.3 Final HCT 06/23/2017 12:17 35.9 Below low normal 36.0-4 5.2 Final MCV 06/23/2017 12:17 91.3 81.5-97.5 Fin al MCH 06/23/2017 12:17 28.8 27.0-34.0 Fin al MCHC 06/23/2017 12:17 31.5 Below low normal 32.0-3 6.0 Final RDW 06/23/2017 12:17 13.4 11.5-15.5 Fin al Platelets 06/23/2017 12:17 317 140-400 Fin al MPV 06/23/2017 12:17 9.8 6.6-11.1 Fin al Performing Location [address] [place] [address]
--- OUTSIDE RECORDS SUMMARY | 2023-06-18 03:54 | External Medical Summary ---
Author Name Unknown Address [facility] N [facility] Phone Organization K01:[place] [address] [address] [place] [id number] Laboratory Report Ordering Provider Test Date Status ALIX BARFIELD 06/23/2017 11:48:00 Final Observation Date Value Abnormality Reference Status Albumin 06/23/2017 22:10 4.0 3.8-5.0 Fin al AST (Aspartate aminotransferase) 06/23/2017 22:10 13 10-35 Final Alk Phos 06/23/2017 22:10 99 0-153 Fin al ALT (Alanine aminotransferase) 06/23/2017 22:10 11 10-35 Final Bilirubin, Total 06/23/2017 22:10 <0.2 0-1.2 Final Bilirubin, Direct 06/23/2017 22:10 <0.2 0-0.3 Final Protein 06/23/2017 22:10 6.5 6.0-8.3 Fin al Performing Location [address] [address]
--- OUTSIDE RECORDS SUMMARY | 2023-06-18 03:54 | External Medical Summary ---
Author Name Unknown Address [facility] [place] [address] Phone Organization K01:[place] [address] [address] [place] [address] Laboratory Report Ordering Provider Test Date Status LAURENCE DAVIS 05/19/2017 12:11:00 Final Observation Date Value Abnormality Reference Status LDL, (direct) 05/19/2017 22:56 190 Above high normal 0 -129 Final Performing Location [address] [address]
--- OUTSIDE RECORDS SUMMARY | 2023-06-18 03:54 | External Medical Summary ---
Author Name Unknown Address [address] [place] [id number] Phone Organization K01:[facility] [address] [place] [phone] Laboratory Report Ordering Provider Test Date Status ELIO BARFIELDROSI 06/23/2017 11:48:00 Final Observation Date Value Abnormality Reference Status Iron 06/27/2017 20:38 33 33-151 Fin al Performing Location [facility] [address] [place] [id number]
--- OUTSIDE RECORDS SUMMARY | 2023-06-18 03:54 | External Medical Summary ---
Author Name Unknown Address [address] [place] [address] [place] [address] Phone Organization K08:[address] [place] [address] Laboratory Report Ordering Provider Test Date Status LAURENCE DAVIS 05/19/2017 12:11:00 Final Observation Date Value Abnormality Reference Status WBC, Total 05/19/2017 13:08 10.46 4.00-10.80 F inal RBC 05/19/2017 13:08 4.03 3.85-5.15 Fin al Hemoglobin 05/19/2017 13:08 11.5 Below low normal 12.0- 15.3 Final HCT 05/19/2017 13:08 36.8 36.0-45.2 Fin al MCV 05/19/2017 13:08 91.3 81.5-97.5 Fin al MCH 05/19/2017 13:08 28.5 27.0-34.0 Fin al MCHC 05/19/2017 13:08 31.3 Below low normal 32.0-3 6.0 Final RDW 05/19/2017 13:08 13.8 11.5-15.5 Fin al Platelets 05/19/2017 13:08 352 140-400 Fin al MPV 05/19/2017 13:08 10.1 6.6-11.1 Fin al Performing Location [address] [place] [address]
--- OUTSIDE RECORDS SUMMARY | 2023-06-18 03:54 | External Medical Summary ---
Author Name Unknown Address [facility] [address] [place] [id number] Phone Organization K01:[place] [address] [address] [place] [id number] Laboratory Report Ordering Provider Test Date Status LAURENCE DAVIS 05/19/2017 12:11:00 Final Observation Date Value Abnormality Reference Status Magnesium 05/19/2017 22:56 2.0 1.5-2.6 Fin al Performing Location [address] [address]
--- OUTSIDE RECORDS SUMMARY | 2023-06-18 03:54 | External Medical Summary ---
Author Name Unknown Address [facility] [place] [address] Phone Organization K01:[facility] [address] [place] [id number] Laboratory Report Ordering Provider Test Date Status LAURENCE DAVIS 05/19/2017 12:11:00 Final Observation Date Value Abnormality Reference Status HbA1C 05/19/2017 22:53 5.9 4.0-6.4 Fin al Performing Location [place] [address] [address] [facility] [address]
--- OUTSIDE RECORDS SUMMARY | 2023-06-18 03:54 | External Medical Summary ---
Author Name Unknown Address [address] [place] [phone] Phone Organization K01:[facility] [address] [place] [phone] Laboratory Report Ordering Provider Test Date Status ALIX BARFIELD 06/23/2017 11:48:00 Final Observation Date Value Abnormality Reference Status Ferritin 06/27/2017 21:54 37.9 13-150 Fin al Performing Location [facility] [address] [place] [id number]
--- OUTSIDE RECORDS SUMMARY | 2023-06-18 03:54 | External Medical Summary ---
Author Name Unknown Address [address] [place] [address] [place] [address] Phone Organization K08:[address] [place] [address] Laboratory Report Ordering Provider Test Date Status ALIX BARFIELD 06/23/2017 11:48:00 Final Observation Date Value Abnormality Reference Status Fasting status - Reported 06/23/2017 11:51 12 Final Triglyceride 06/23/2017 22:10 86 <200 Final Performing Location [address] [place] [address]
--- OUTSIDE RECORDS SUMMARY | 2023-06-18 03:54 | External Medical Summary ---
Author Name Unknown Address [facility] [place] [address] Phone Organization K01:[facility] [address] [place] [phone] Laboratory Report Ordering Provider Test Date Status LAURENCE DAVIS 05/19/2017 12:11:00 Final Observation Date Value Abnormality Reference Status T4, Free 05/19/2017 23:26 1.16 0.9-1.7 Fin al Performing Location [place] [address] [address] [facility] [address]
--- OUTSIDE RECORDS SUMMARY | 2023-06-18 03:54 | External Medical Summary | Summary of Care ---
Author Name Unknown Organization [place] [address] Phone Care Team Providers Care Shank Sander Name Role Phone Marcela Pinto MD Primary Care Provider [phone] Reason for Visit * Reason Comments Acute MEDICATION ADMINISTRATION Flu and/or Pne umo Inj Encounter Details Date Type Department Care Team Description 07/30/2017 Office Visit General Internal Medicine [facility] [address] [place] [address] Kristal Duvall, CARBURETOR REPAIRER [address] [place] [address] [phone] Abdominal pain, left lower quadrant*;Need for prophylactic vaccination and inoculation against influenza;Diverticulos is of intestine without bleeding, unspecified intestinal tract location;HTN, goal below 140/90;History of GI bleed;Irritable bowel syndrome with constipation Allergies Active Allergy Reactions Severity Noted Date Comments Valsartan 07/10/2010 Enalapril 05/21/2006 Escitalopram Oxalate Nausea/vomiting 10/11/2009 Nauseated Iodinated Diagnostic Agents Nausea/vomiting 05/2010 IV Contrast Lisinopril 05/21/2006 Metoprolol Tartrate 11/18/2006 Made pulse low [place] Oil-Black Currant-Vit E 07/10/2010 Verapamil 03/21/2004 [...] DilTIAZem HCl ER Coated Beads 360 MG [id number] , goal below 130/80 TAKE ONE CAPSULE [...] mg by mouth daily. 5 7 Active ipratropium-albuter ol (COMBIVENT RESPIMAT) 20-100 MCG/ACT InhalerIndications: Asthma with severity to be determined,COPD, moderate ([facility]) TAKE 1 PUFF BY MOUTH 4 TIMES A DAY 1 Inhaler 5 7 08/10/20 17 Discontinued traZODone (DESYREL) 50 MG TabletIndications:P rimary insomnia Take 1 Tab by mouth at bedtime. 30 Tab 5 7 08/19/20 17 Discontinued traMADol (ULTRAM) 50 MG TabletIndications:G eneralized osteoarthritis TAKE 1 TABLET BY MOUTH EVERY 6 HOURS NEEDED 30 Tab 0 7 08/07/20 17 Discontinued HYDROcodone-acetami nophen 5-325 mg per tab 5-325 MG per tabletIndications:G eneralized osteoarthritis Take 1 Tab by mouth every 6 hours as needed for Pain, Breakthrough. 120 Tab 0 7 08/06/20 17 Discontinued ciprofloxacin (CIPRO) 500 MG TabletIndications:A bdominal pain, left lower quadrant Take 1 Tab by mouth every 12 hours for 10 days. 20 Tab 0 7 08/09/20 17 metroNIDAZOLE (FLAGYL) 500 MG TabletIndications:A bdominal pain, left lower quadrant Take 1 Tab by mouth 3 times a day for 10 days. 30 Tab 0 7 08/09/20 17 as of this encounter Active [...] Hypoxemia 10/08/2011 10/30/2015 Genetic Sleep Disorder Research Other*[id number] 07/25/2011 05/15/2016 Obesity, morbid (more than 1 00 lbs over ideal weight or BMI > 40) ([facility]) 01/09/2010 08/19/2017 Overview: Per Obesity Taxonomy [...] Vital Sign Reading Time Taken Blood Pressure 132/66 07/30/2017 1:42 PM EDT Pulse 60 07/30/2017 1:42 PM EDT Temperature 36.7 C (98 F) 07/30/2017 1:4 2 PM EDT Respiratory Rate 16 07/30/2017 1:42 PM EDT Oxygen Saturation - - Inhaled Oxygen Concentration - - Weight 106.6 kg (235 lb) 07/30/2017 1:4 2 PM EDT Height 165.1 cm (5' 5") 07/30/2017 1:42 PM EDT Body Mass Index 39.11 07/30/2017 1:42 PM EDT in this encounter Progress Notes * Kristal Duvall CRNP - 08/01/2017 12:43 PM EDT No urine infection on culture, check condition of abd pain. * Kristal Duvall CRNP - 07/30/2017 9:45 PM EDT Blood work stable, mild elevation in wbc, similar to previous, awaiting final urine culture, notifyand check condition. * Radha Vargas LPN - 07/30/2017 1:43 PM EDT PRE - ADMINISTRATION DOCUMENTATION Are you allergic to latex? No Are you allergic to eggs or egg products? No Are you experiencing any cold symptoms or fever? No Have you had Guillain-Edgerton Syndrome (an illness that causes paralysis)? No Have you had the flu shot in the past? YES Have you ever had a reaction to the flu shot? No Radha VargasNICOL, 07/30/2017 1:43 PM Immunization Administration Documentation Time Out Procedure Performed: Yes Patient Identified (Ask Name/Date of ): Yes Does the patient have a fever greater than 101 degrees today? No Patient allergic to latex? No VFC Stock: No Immunization(s) verified: Yes, Immunization Name: Flu, VIS Sheet(s) given: Yes Verified Side and Site: Yes Verified Shot(s) with Parent(s)/Patient: Yes * Kay Duncan CRNP Student - 07/30/2017 1:40 PM EDT Formatting of this note may be different from the original. See the Licensed Professional's note for clinical information and recommendations. The signature ofthe Licensed Professional on this note acknowledges only the presence of the student's note within the patient record. By regulation, students' notes are for training and educational purposes only and play no part in the documentation of care or clinical treatment of patients. Subjective: Nina Harrington is a 76 year old female. Chief Complaint Patient presents with Acute MEDICATION ADMINISTRATION Flu and/or Pneumo Inj HPI: Patient presents to clinic today with PMH as listed below and new complaint of left abdominal pain radiating to left side/flank region. Patient had been hospitalized March 2017 for diverticulosis, and then required transfusion in May 2017. Patient follows with GI. Patient expresses concern that this pain is similar to what she had experienced prior to being hospitalized. Patient denies anysignificant change in diet, and denies consumption of seeded fruits (strawberries) and nuts. ROS: Denies trauma, headache, syncope, fever or chills. Denies visual changes. Denies ear pain/pressure, denies congestion, sore throat or swollen lymph nodes. Denies stiff neck. Denies chest pain, palpitations or shortness of breath. Denies cough. +left upper and lower quadrant abdominal pain radiating to left side/flank region. Denies N/V/D, blood in stool. Denies hematuria, dysuria urgency, orfrequency. Denies numbness, tingling or weakness in extremities. 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 [employer] 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 Main Topics Smoking status: Never Smoker Smokeless tobacco: Never Used Alcohol use No Drug use: No Sexual activity: Not Currently Other Topics Concern Blood Transfusions No 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 Narrative 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 Obesity, morbid (more than 100 lbs over ideal weight or BMI > 40) ([facility]) E66.01 COPD, moderate ([facility]) J44.9 Allergic rhinitis J30.9 Diverticulitis of colon K57.32 Nocturnal hypoxia G47.34 Sleep apnea, obstructive G47.33 Incisional hernia K43.2 ACEI/ARB contraindicated [id number] HTN, goal below 140/90 I10 Hyperlipidemia with target LDL less than 100 E78.5 Obesity, Class II, BMI 35.0-39.9, with comorbidity (see actual BMI) E66.9 Controlled substance agreement signed Z79.899 Type 2 diabetes mellitus with hemoglobin A1c goal of less than 7.5% ([facility]) E11.9 Hypercalcemia E83.52 Elevated plasma metanephrines R79.89 Lower GI bleed K92.2 Irritable bowel syndrome with constipation K58.1 Current Outpatient Prescriptions Medication Sig Dispense Refill HYDROcodone-acetaminophen 5-325 mg per tab 5-325 MG per tablet Take 1 Tab by mouth every 6 hours as needed for Pain, Breakthrough. 120 Tab 0 SENNA PLUS 8.6-50 MG per tablet TAKE 1 TABLET TWICE A DAY FOR CONSTIPATION 50 Tab 0 DilTIAZem HCl ER Coated Beads 360 MG CP24 TAKE ONE CAPSULE BY MOUTH DAILY 90 Cap 1 omeprazole (PRILOSEC) 20 MG CPDR TAKE 1 CAPSULE TWICE DAILY 180 Cap 1 traMADol (ULTRAM) 50 MG Tablet TAKE 1 TABLET BY MOUTH EVERY 6 HOURS NEEDED 30 Tab 0 Terazosin HCl 2 MG Capsule Take 1 [...] scan time with Prednisone. 2 Tab 0 ipratropium-albuterol (COMBIVENT RESPIMAT) 20-100 MCG/ACT Inhaler TAKE 1 PUFF BY MOUTH 4 TIMES A DAY 1 Inhaler 5 albuterol sulfate (PROVENTIL) (2.5 MG/3ML) 0.083% nebulizer [...] needed for bp over 170/90 10 0 atorvaSTATin (LIPITOR) 20 MG Tablet Take 20 mg by mouth daily. Take 20 mg by mouth daily. 5 furosemide (LASIX) 40 MG Tablet One pill daily as needed for edema. 30 Tab 11 Review of patient's allergies indicates: Allergen Reactions Diovan [Valsartan] Enalapril Escitalopram Oxalate Nausea/vomiting Nauseated Iodinated Diagnostic Agents Nausea/vomiting IV Contrast Lisinopril Metoprolol Tartrate Made pulse low [place] Oil-Black Currant-Vit E Verapamil Wellbutrin [Bupropion Hcl] Makes pt sick in the stomach OBJECTIVE: BP 132/66 | Pulse 60 | Temp (Src) 98 (Tympanic) | Resp 16 | Ht 5' 5" (1.651m) | Wt 235 lbs (106.595kg) | BMI 39.11 kg/m | BSA 2.21 m PHYSICAL EXAM: General: alert, healthy, no distress, well nourished and well developed Head: Normocephalic, No masses, lesions, tenderness or abnormalities Oropharynx: no exudate, no erythema, lips, buccal mucosa, and tongue normal and mucous membranes are moist Neck: supple, no adenopathy, no bruits, thyroid normal size, non-tender, without nodularity Lymph: no palpable lymphadenopathy Heart: regular rate & rhythm, no murmurs and no gallops Lungs: chest symmetric with normal AP diameter, no chest deformities noted, no chest wall tenderness, lungs clear to auscultation Abdomen: abdomen soft, non-tender, normal bowel sounds and no masses or organomegaly Back: No CVA tenderness, no tenderness to percussion or palpation Neuro Exam: alert & oriented x 3 with fluent speech, no focal motor/sensory deficits, gait normal, reflexes normal and symmetric ASSESSMENT: R10.32 Abdominal pain, left lower quadrant (primary encounter diagnosis) Plan: Cbc Compr metab panel Z23 Need for prophylactic vaccination and inoculation against influenza Plan: Influenza vacc, quad, pf, 6 months & up, 0.5 ml, im Z23 Need for prophylactic vaccination and inoculation against influenza (primary encounter diagnosis) Follow up: Follow with PCP as directed, call if symptoms worsen or remain unchanged. NIECY Callahan Student * Krisatl Duvall CRNP - 07/30/2017 1:40 PM EDT Formatting of this note may be different from the original. Subjective: Nina Harrington is a 76 year old female. Chief Complaint Patient presents with Acute MEDICATION ADMINISTRATION Flu and/or Pneumo Inj HPI: Pt here with PMH as listed below with c/o left sided abdominal pain that started about 5 days ago. She states it has eased up some but persists. She is concerned about diverticulitis. She has had in the past and she states it feels similar. She denies diarrhea or blood in the stool. She has had GI bleed in the past. 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 She denies significant nausea, no vomiting. Weight stable. BP stable. She is unable to do CT scan today. She would prefer to not due imaging or go to the hospital. She request antibiotic trial. She verb understanding that with her history that complications can arise, can perf bowel. No h/orenal stones. She denies other health complaints at this time. ROS: Denies syncope, fever, chills, GRAVES, stiff neck, swollen glands, cp, sob, wheezing, myalgias, dysuria, hematuria, urgency frequency, hesitancy with urination, or weakness, numbness, tingling,or swelling in the extremities. 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 Obesity, morbid (more than 100 lbs over ideal weight or BMI > 40) ([facility]) E66.01 COPD, moderate ([facility]) J44.9 Allergic rhinitis J30.9 Diverticulitis of colon K57.32 Nocturnal hypoxia G47.34 Sleep apnea, obstructive G47.33 Incisional hernia K43.2 ACEI/ARB contraindicated [id number] HTN, goal below 140/90 I10 Hyperlipidemia with target LDL less than 100 E78.5 Obesity, Class II, BMI 35.0-39.9, with comorbidity (see actual BMI) E66.9 Controlled substance agreement signed Z79.899 Type 2 diabetes mellitus with hemoglobin A1c goal of less than 7.5% ([facility]) E11.9 Hypercalcemia E83.52 Elevated plasma metanephrines R79.89 Lower GI bleed K92.2 Irritable bowel syndrome with constipation K58.1 Current Outpatient Prescriptions Medication Sig Dispense Refill HYDROcodone-acetaminophen 5-325 mg per tab 5-325 MG per tablet Take 1 Tab by mouth every 6 hours as needed for Pain, Breakthrough. 120 Tab 0 SENNA PLUS 8.6-50 MG per tablet TAKE 1 TABLET TWICE A DAY FOR CONSTIPATION 50 Tab 0 DilTIAZem HCl ER Coated Beads 360 MG CP24 TAKE ONE CAPSULE BY MOUTH DAILY 90 Cap 1 omeprazole (PRILOSEC) 20 MG CPDR TAKE 1 CAPSULE TWICE DAILY 180 Cap 1 traMADol (ULTRAM) 50 MG Tablet TAKE 1 TABLET BY MOUTH EVERY 6 HOURS NEEDED 30 Tab 0 Terazosin HCl 2 MG Capsule Take 1 [...] scan time with Prednisone. 2 Tab 0 ipratropium-albuterol (COMBIVENT RESPIMAT) 20-100 MCG/ACT Inhaler TAKE 1 PUFF BY MOUTH 4 TIMES A DAY 1 Inhaler 5 albuterol sulfate (PROVENTIL) (2.5 MG/3ML) 0.083% nebulizer [...] needed for bp over 170/90 10 0 atorvaSTATin (LIPITOR) 20 MG Tablet Take 20 mg by mouth daily. Take 20 mg by mouth daily. 5 furosemide (LASIX) 40 MG Tablet One pill daily as needed for edema. 30 Tab 11 Review of patient's allergies indicates: Allergen Reactions Diovan [Valsartan] Enalapril Escitalopram Oxalate Nausea/vomiting Nauseated Iodinated Diagnostic Agents Nausea/vomiting IV Contrast Lisinopril Metoprolol Tartrate Made pulse low [place] Oil-Black Currant-Vit E Verapamil Wellbutrin [Bupropion Hcl] [...] diverticulosis, repeat 3 yrs/[facility] COLONOSCOPY, W/BIOPSY 03/20/12 hyperplastic polyps rpt 3 years. EGD, FLEXIBLE, DIAGNOSTIC 04/29/2014 normal/inpt [facility] EGD, FLEXIBLE, DIAGNOSTIC 05/29/2016 fundic submucosal mass/inpt [facility] EGD, FLEXIBLE,W/ENDOSCOPIC US 11/08/2016 inflammatory changes, stomach lesion, repeat EUS 1.5 yrs/[facility] INCISIONAL HERNIA REPAIR, LAP, REDUCIBLE 09/29/12 Repair of incarcerated supraumbilical (incisional) hernia with [facility] mesh 09/29/12 LIGATE/CUT OVIDUCT(S) REMOVAL OF TONSILS, AGE 12+ age 11 REMOVE GALLBLADDER 1960 SIGMOIDOSCOPY, DIAGNOSTIC 04/29/2014 stool in rectum/inpt [facility] 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[employer] 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 Main Topics Smoking status: Never Smoker Smokeless tobacco: Never Used Alcohol use No Drug use: No Sexual activity: Not Currently Other Topics Concern Blood Transfusions No 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 Narrative OBJECTIVE: BP 132/66 | Pulse 60 | Temp (Src) 98 (Tympanic) | Resp 16 | Ht 5' 5" (1.651m) | Wt 235 lbs (106.595kg) | BMI 39.11 kg/m | BSA 2.21 m PHYSICAL EXAM: General: alert, no distress, well nourished and cooperative Heart: regular rate & rhythm, murmur noted Lungs: chest symmetric with normal AP diameter, no chest deformities noted, normal respiratory rateand rhythm, lungs clear to auscultation Abdomen: abdomen soft, mod LLQ tenderness, normal bowel sounds and no masses or organomegaly Extremities: no edema, no skin discoloration Neuro Exam: alert & oriented x 3 with fluent speech, no focal motor/sensory deficits Skin: skin color, texture, turgor are normal, no rash ASSESSMENT/PLAN: R10.32 Abdominal pain, left lower quadrant (primary encounter diagnosis) Plan: Cbc Compr metab panel Routine urinalysis Culture quant urine Ciprofloxacin hcl 500 mg po tabs Sig:Take 1 tab by mouth every 12 hours for 10 days. Metronidazole 500 mg po tabs Sig:Take 1 tab by mouth 3 times a day for [address] scan -pt unable to do today, request antibiotic trial as she has had this in the past and would like to try first. She is agreeable to ED this evening for onset of fever or worsening pain,blood in stool. N/v. She verb that bowel perf or bleed could occur. Z23 Need for prophylactic vaccination and inoculation against influenza Plan: Influenza vacc, quad, pf, 6 months & up, 0.5 ml, im K57.90 Diverticulosis of intestine without bleeding, unspecified intestinal tract location Z87.19 History of gi bleed K58.1 Irritable bowel syndrome with constipation Small gastric tumor Continue f/u with GI as directed Follow-up as needed for worsening symptoms as discussed or as directed on Friday for recheck. If labs significantly abnormal will advise ED. Pt aware and verb understanding NIECY Eagle in this encounter Plan of Treatment Upcoming Encounters Date Type Specialty Care Team Description 08/29/2017 Office Visit Internal Medicine Marcela Pinto MD [address] [place] [address] [phone] 09/10/2017 Office Visit Gastroenterology Estephania Costa PA-C [address] [place] [address] [phone] 10/02/2017 Office Visit Internal Medicine Marcela Pinto MD [address] [place] [address] [phone] 05/29/2018 Imaging Radiology [address] [place] [address] [phone] Health Maintenance Due Date Last Done Comments [...] on fileas of this encounter Results * CULTURE QUANT URINE (07/30/2017 2:24 PM) Component Value Ref Range SPECIMEN DESCRIPTION CLEAN CATCH URINE CULTURE LESS THAN 10,000 COLONIES/ML MIX ED NORMAL STEVAN REPORT STATUS 07/31/2017 FINAL Specimen Performing Laborator y [facility] [address] [facility] [place] [address] * ROUTINE URINALYSIS (07/30/2017 2:24 PM) Component Value Ref Range COLOR, UA STRAW(A) YEL CLARITY, UA CLEAR CLEAR GLUCOSE, UA NEGATIVE NEG mg/dL BILIRUBIN, UA NEGATIVE NEG KETONE, UA NEGATIVE NEG mg/dL SPECIFIC GRAVITY 1.015 1.003 - 1.030 BLOOD, UA NEGATIVE NEG PH, UA 6.0 5.0 - 7.5 units PROTEIN, UA NEGATIVE NEG mg/dL UROBILINOGEN, UA NORMAL NORM mg/dL NITRITE, UA NEGATIVE NEG ESTERASE, UA NEGATIVE NEG COMMENT, UA SCREEN NEGATIVE - MICROSCOPIC NO T DONE Specimen Performing Laborator y Urine [facility] [address] [place] [address] * COMPR METAB PANEL (07/30/2017 2:19 PM) Component Value Ref Range BUN 18 6 - 20 mg/dL CREATININE 0.9 Comment: GFR should be used to assess renal function.Plasma/Serum creatinine may not be able to properly reflect renal function in some cases. 0.5 - 1.0 mg/dL SODIUM 143 135 - 146 mmol/L POTASSIUM 4.2 3.5 - 5.1 mmol/L CHLORIDE 101 98 - 107 mmol/L CO2 29 22 - 32 mmol/L ANION GAP 13 7 - 15 mmol/L GLUCOSE 100 70 - 120 mg/dL ALBUMIN 4.4 3.8 - 5.0 g/dL AST 14 10 - 35 U/L ALKALINE PHOSPHATASE 100 0 - 153 U/L BILIRUBIN, TOTAL 0.2 0 - 1.2 mg/dL CALCIUM 10.1 8.4 - 10.2 mg/dL PROTEIN 7.9 6.0 - 8.3 g/dL ALT 11 10 - 35 U/L E GLOM FILT RATE >60.0Comment:If gurmeet ent is , multiply estimated GFR by 1.159. >60 Specimen Performing Laborator y [facility] [address] [place] [address] * CBC (07/30/2017 2:19 PM) Component Value Ref Range WBC 11.83(H) 4.00 - 10.80 K/u L RBC 4.23 3.85 - 5.15 M/uL HGB 12.1 12.0 - 15.3 g/dL HCT 38.2 36.0 - 45.2 % MCV 90.3 81.5 - 97.5 fL MCH 28.6 27.0 - 34.0 pg MCHC 31.7(L) 32.0 - 36.0 g/dL RDW 13.4 11.5 - 15.5 % PLATELET COUNT 327 140 - 400 K/uL MPV 9.4 6.6 - 11.1 fL Specimen Performing Laborator y [facility] [address] [place] [address] in this encounter Visit Diagnoses Diagnosis Abdominal pain, left lower q uadrant - Primary Need for prophylactic vaccin ation and inoculation against influenza Diverticulosis of intestine without bleeding, unspecified intestinal tract location HTN, goal below 140/90 Unspecified essential hypertension History of GI bleed Personal history of other diseases of digestive system Irritable bowel syndrome wit h constipation Irritable bowel syndrome in this encounter Insurance Payer Benefit Plan / Group Subscriber ID Type Phone Address MEDICARE MEDICARE A AND B [id number] Medicare [place], [place] MEDICAID DENISHA Parks [facility] [id number] as of this encounter
--- OUTSIDE RECORDS SUMMARY | 2023-06-18 03:54 | External Medical Summary ---
Author Name Unknown Address [address] [place] [address] [place] [address] Phone Organization [id number]:[address] [place] [address] Laboratory Report Ordering Provider Test Date Status LAURENCE DAVIS 05/19/2017 12:11:00 Final Observation Date Value Abnormality Reference Status Fasting status - Reported 05/19/2017 12:14 12 Final Triglyceride 05/19/2017 22:56 151 <200 Final Performing Location [address] [place] [address]
--- OUTSIDE RECORDS SUMMARY | 2023-06-18 03:54 | External Medical Summary ---
Author Name Unknown Address [address] [place], [place] [address] Phone Organization K09:[facility] [address] [place] [address] Laboratory Report Ordering Provider Test Date Status TALIB BOYD 07/30/2017 14:24:00 Final Observation Date Value Abnormality Reference Status Source 07/30/2017 14:25 CLEAN CATCH URINE Final Bacteria identified in Unspecified specimen by Culture 07/31/2017 14:36 LESS THAN 10,000 COLONIES/ML MIXED NORMAL STEVAN Final REPORT STATUS 07/31/2017 14:36 07/31/2017 FINAL Final Performing Location [facility] [address] [place] [address]
--- OUTSIDE RECORDS SUMMARY | 2023-06-18 03:54 | External Medical Summary ---
Author Name Unknown Address [address] [id number] Phone Organization K01:[facility] [address] [id number] Laboratory Report Ordering Provider Test Date Status JOSE A JOHNSON 05/19/2017 12:09:00 Final Observation Date Value Abnormality Reference Status Albumin, Urine 05/19/2017 22:56 <1.20 Final Creatinine [Moles/volume] in Urine 05/19/2017 22:56 101 Final Microalbumin / Creatinine Ratio 05/19/2017 22:56 <12 <30 Final Performing Location [facility] [address] [facility] [address]
--- OUTSIDE RECORDS SUMMARY | 2023-06-18 03:54 | External Medical Summary ---
Author Name Unknown Address [facility] [place] [address] Phone Organization K01:[facility] [address] [id number] Laboratory Report Ordering Provider Test Date Status ELIO BARFIELDROSI 06/23/2017 11:48:00 Final Observation Date Value Abnormality Reference Status LDL, (direct) 06/23/2017 22:10 100 0-129 Final Performing Location [place] [id number]
--- OUTSIDE RECORDS SUMMARY | 2023-06-18 03:55 | External Medical Summary ---
Author Name Unknown Address [address] [facility] [place] [address] Phone Organization K0G:[facility] [place] Doran [address] [facility] [place] [address] Laboratory Report Ordering Provider Test Date Status CALLI RICHARDS 10/01/2016 11:25:00 Final Obs # Observation Date Value Abnormality Reference Status Performing Location 0 Albumin 10/01/2016 12:32 4.1 3.8-5.0 Final [facility] [place] Doran [address] [facility] [place] [address] 1 AST (Aspartate aminotransferase) 10/01/2016 12:32 14 10-35 Final 2 Alk Phos 10/01/2016 12:32 92 0-153 Final 3 ALT (Alanine aminotransferase) 10/01/2016 12:32 10 10-35 Final 4 Bilirubin, Total 10/01/2016 12:32 0.2 0-1.2 Final 5 Bilirubin, Direct 10/01/2016 12:32 <0.2 0.0-0.3 Final 6 Protein 10/01/2016 12:32 7.3 6.0-8.3 Final
--- OUTSIDE RECORDS SUMMARY | 2023-06-18 03:55 | External Medical Summary ---
Author Name Unknown Address [facility] [place] [address] Phone Organization K01:[place] [address] [place] [id number] Laboratory Report Ordering Provider Test Date Status COREEN CASTILLO 02/12/2017 10:55:00 Final Observation Date Value Abnormality Reference Status 25-OH Vitamin D total 02/12/2017 18:28 36 > 19 Final Performing Location [address] [address]
--- OUTSIDE RECORDS SUMMARY | 2023-06-18 03:55 | External Medical Summary ---
Author Name Unknown Address [facility] [place] [address] Phone Organization K01:[place] [address] [address] [place] [id number] Laboratory Report Ordering Provider Test Date Status COREEN CASTILLO 02/26/2017 09:11:00 Final Observation Date Value Abnormality Reference Status Creatinine [Moles/volume] in 24 hour Urine 02/26/2017 16:50 1.106 0.800-1.800 Final Performing Location [place] [address] [address] [place] [phone]
--- OUTSIDE RECORDS SUMMARY | 2023-06-18 03:55 | External Medical Summary ---
Author Name Unknown Address [address] [place] [address] [place] [address] Phone Organization K08:[address] Celio SCHWARTZ [address] Laboratory Report Ordering Provider Test Date Status PHOENIX CASTILLOMARIA ISABEL 02/26/2017 09:11:00 Final Observation Date Value Abnormality Reference Status Urine Volume 02/26/2017 09:39 2910 Final Performing Location [address] Celio SCHWARTZ [address]
--- OUTSIDE RECORDS SUMMARY | 2023-06-18 03:55 | External Medical Summary ---
Author Name Unknown Address [address] [place] [address] [place] [address] Phone Organization K08:[address] Celio SCHWARTZ [address] Laboratory Report Ordering Provider Test Date Status LAURENCE DAVSI MD 12/12/2016 11:02:00 Final Obs # Observation Date Value Abnormality Reference Status Performing Location 0 WBC, Total 12/12/2016 11:39 11.38 Above high normal 4.00-10.[address] Celio [place]WARTZ [address] 1 RBC 12/12/2016 11:39 4.29 3.85-5.15 Final 2 Hemoglobin 12/12/2016 11:39 12.3 12.0-15.3 Final 3 HCT 12/12/2016 11:39 39.1 36.0-45.2 Final 4 MCV 12/12/2016 11:39 91.1 81.5-97.5 Final 5 MCH 12/12/2016 11:39 28.7 27.0-34.0 Final 6 MCHC 12/12/2016 11:39 31.5 Below low normal 32.0-36.0 Final 7 RDW 12/12/2016 11:39 14.2 11.5-15.5 Final 8 Platelets 12/12/2016 11:39 303 140-400 Final 9 MPV 12/12/2016 11:39 10.4 6.6-11.1 Final
--- OUTSIDE RECORDS SUMMARY | 2023-06-18 03:55 | External Medical Summary ---
Author Name Unknown Address [address] [place] [address] Phone Organization K01[facility] [address] [place] [id number] Laboratory Report Ordering Provider Test Date Status LAURENCE DAVIS MD 12/12/2016 11:02:00 Final Obs # Observation Date Value Abnormality Reference Status Performing Location 0 T4, Free 12/12/2016 22:47 1.08 0.9-1.7 Final [facility] [address] [place] [id number]
--- OUTSIDE RECORDS SUMMARY | 2023-06-18 03:55 | External Medical Summary ---
Author Name Unknown Address [address] [place] [phone] Phone Organization K01:[facility] [address] [place] [phone] Laboratory Report Ordering Provider Test Date Status LAURENCE DAVIS MD 12/12/2016 11:02:00 Final Obs # Observation Date Value Abnormality Reference Status Performing Location 0 TSH 12/12/2016 22:47 0.58 0.27-4.2 Final [facility] [address] [facility] [address]
--- OUTSIDE RECORDS SUMMARY | 2023-06-18 03:55 | External Medical Summary ---
Author Name Unknown Address [address] [place] [phone] Phone Organization K01:[facility] [address] [place] [phone] Laboratory Report Ordering Provider Test Date Status DAVID HAWK 02/05/2017 11:48:00 Final Observation Date Value Abnormality Reference Status Lipase 02/05/2017 17:51 10 Below low normal 16-63 Final Performing Location [facility] 100 [address] [facility] [address]
--- OUTSIDE RECORDS SUMMARY | 2023-06-18 03:55 | External Medical Summary ---
Author Name Unknown Address [address] [place] [address] [place] [address] Phone Organization K08:[address] Celio SCHWARTZ [address] Laboratory Report Ordering Provider Test Date Status LAURENCE DAVIS MD 12/12/2016 11:02:00 Final Obs # Observation Date Value Abnormality Reference Status Performing Location 0 Fasting status - Reported 12/12/2016 11:08 [address] Celio [place]WARTZ [address] 1 Triglyceride 12/12/2016 22:15 190 <200 Final
--- OUTSIDE RECORDS SUMMARY | 2023-06-18 03:55 | External Medical Summary ---
Author Name Unknown Address [address] [place] [phone] Phone Organization K01:[facility] 100 N [facility] [address] Laboratory Report Ordering Provider Test Date Status LAURENCE DAVIS MD 12/12/2016 11:02:00 Final Obs # Observation Date Value Abnormality Reference Status Performing Location 0 BUN 12/12/2016 22:15 18 6-20 Final [facility] 100 [address] [facility] [address] 1 Creatinine 12/12/2016 22:15 0.9 0.5-1.0 Final
--- OUTSIDE RECORDS SUMMARY | 2023-06-18 03:55 | External Medical Summary ---
Author Name Unknown Address [address] [place], [place] [phone] ) Organization K03:[facility] [address] [place], [place] [address] Laboratory Report Ordering Provider Test Date Status COREEN CASTILLO 02/12/2017 10:55:00 Final Observation Date Value Abnormality Reference Status Renin Activity 02/19/2017 17:24 0.26 0.25-5.8 2 Final Aldosterone 02/19/2017 17:24 19.2 0.9-28.9 F inal Performing Location [facility] [address] [place] [address]
--- OUTSIDE RECORDS SUMMARY | 2023-06-18 03:55 | External Medical Summary ---
Author Name Unknown Address [facility] N [place] [phone] Phone Organization K01:[place] [address] [address] [place] [phone] Laboratory Report Ordering Provider Test Date Status COREEN CASTILLO 02/18/2017 08:20:00 Final Observation Date Value Abnormality Reference Status Cortisol 02/18/2017 14:44 1.2 Below low normal 2.5-19 .5 Final Performing Location [place] [address] N [facility] [address]
--- OUTSIDE RECORDS SUMMARY | 2023-06-18 03:55 | External Medical Summary ---
Author Name Unknown Address [facility] [address] Phone Organization K01:[place] [address] [address] [place] [phone] Laboratory Report Ordering Provider Test Date Status DAVID HAWK 02/05/2017 11:48:00 Final Observation Date Value Abnormality Reference Status D-dimer, Quant. 02/05/2017 18:00 0.87 Above high normal <0.50 Final Performing Location [address] [address]
--- OUTSIDE RECORDS SUMMARY | 2023-06-18 03:55 | External Medical Summary ---
Author Name Unknown Address [address] [place] [phone] Phone Organization K01:[facility] 100 N [facility] [address] Laboratory Report Ordering Provider Test Date Status LAURENCE DAVIS MD 12/12/2016 11:02:00 Final Obs # Observation Date Value Abnormality Reference Status Performing Location 0 Magnesium 12/12/2016 22:15 1.9 1.5-2.6 Final [facility] [place] 100 [address] [facility] [address]
--- OUTSIDE RECORDS SUMMARY | 2023-06-18 03:55 | External Medical Summary ---
Author Name Unknown Address [address] [place] [address] ) Organization K03:[facility] [address] [place] [address] Laboratory Report Ordering Provider Test Date Status COREEN CASTILLO 02/26/2017 09:11:00 Final Observation Date Value Abnormality Reference Status 24 HOUR URINE VOLUME 03/02/2017 12:07 2910 Final Epinephrine, 24-hr Urine 03/02/2017 12:07 REPORT Final Performing Location [facility] [address] [place] [address]
--- OUTSIDE RECORDS SUMMARY | 2023-06-18 03:55 | External Medical Summary ---
Author Name Unknown Address [facility] [place] [address] Phone Organization K01:[facility] [address] [place] [phone] Laboratory Report Ordering Provider Test Date Status CALLI RICHARDS 10/01/2016 11:25:00 Final Obs # Observation Date Value Abnormality Reference Status Performing Location 0 Gliadin peptide IgA Ab [Units/volume] in Serum by Immunoassay 10/03/2016 14:31 5.7 <20 Final [facility] 100 [address] [facility] [address]
--- OUTSIDE RECORDS SUMMARY | 2023-06-18 03:55 | External Medical Summary ---
Author Name Unknown Address [address] [place] [address] Phone Organization K09:[facility] [address] [place] [address] Laboratory Report Ordering Provider Test Date Status DAVID HAWK 02/05/2017 11:48:00 Final Observation Date Value Abnormality Reference Status WBC, Total 02/05/2017 12:06 10.93 Above high normal 4.00 -10.80 Final RBC 02/05/2017 12:06 4.52 3.85-5.15 Fin al Hemoglobin 02/05/2017 12:06 13.0 12.0-15.3 Fi nal HCT 02/05/2017 12:06 40.4 36.0-45.2 Fin al MCV 02/05/2017 12:06 89.4 81.5-97.5 Fin al MCH 02/05/2017 12:06 28.8 27.0-34.0 Fin al MCHC 02/05/2017 12:06 32.2 32.0-36.0 Fin al RDW 02/05/2017 12:06 13.4 11.5-15.5 Fin al Platelets 02/05/2017 12:06 390 140-400 Fin al MPV 02/05/2017 12:06 9.4 6.6-11.1 Fin al Segs 02/05/2017 12:06 62.6 40-75 Fin al Lymphs % 02/05/2017 12:06 26.7 18-42 Fin al Monos 02/05/2017 12:06 8.9 1-11 Fin al Eosinophils 02/05/2017 12:06 1.6 0-6 F inal Basos 02/05/2017 12:06 0.2 0-2 Fin al Absolute Segs 02/05/2017 12:06 6.85 1.8-7.7 Final Lymphs, absolute 02/05/2017 12:06 2.92 1.0-4. 8 Final Monos, Abs 02/05/2017 12:06 0.97 0.0-1.1 Fi nal Eos, Abs 02/05/2017 12:06 0.17 0.0-0.7 Fin al Basos, Abs 02/05/2017 12:06 0.02 0.0-0.2 Fi nal Performing Location [facility] [address] [place] [address]
--- OUTSIDE RECORDS SUMMARY | 2023-06-18 03:55 | External Medical Summary ---
Author Name Unknown Address [facility] [address] [place] [phone] Phone Organization K01:[facility] [address] [place] [phone] Laboratory Report Ordering Provider Test Date Status COREEN CASTILLO 02/12/2017 10:55:00 Final Observation Date Value Abnormality Reference Status Calcium 02/12/2017 17:53 9.8 8.4-10.2 Fin al Performing Location [place] [phone]
--- OUTSIDE RECORDS SUMMARY | 2023-06-18 03:55 | External Medical Summary ---
Author Name Unknown Address [address] [place] [address] [place] [address] Phone Organization K08:[address] Celio [place]Z [address] Laboratory Report Ordering Provider Test Date Status PHOENIX CASTILLOMARIA ISABEL 02/26/2017 09:11:00 Final Observation Date Value Abnormality Reference Status Urine Volume 02/26/2017 09:39 2910 Final Performing Location [address] eClio SCHWARTZ [address]
--- OUTSIDE RECORDS SUMMARY | 2023-06-18 03:55 | External Medical Summary ---
Author Name Unknown Address [address] [place] [address] [place] [address] Phone Organization K08:[address] Celio SCHWARTZ [address] Laboratory Report Ordering Provider Test Date Status ALIX BARFIELD MD 01/09/2017 10:37:00 Final Observation Date Value Abnormality Reference Status WBC, Total 01/09/2017 11:01 9.53 4.00-10.80 F inal RBC 01/09/2017 11:01 4.25 3.85-5.15 Fin al Hemoglobin 01/09/2017 11:01 12.2 12.0-15.3 Fi nal HCT 01/09/2017 11:01 39.1 36.0-45.2 Fin al MCV 01/09/2017 11:01 92.0 81.5-97.5 Fin al MCH 01/09/2017 11:01 28.7 27.0-34.0 Fin al MCHC 01/09/2017 11:01 31.2 Below low normal 32.0-3 6.0 Final RDW 01/09/2017 11:01 13.3 11.5-15.5 Fin al Platelets 01/09/2017 11:01 361 140-400 Fin al MPV 01/09/2017 11:01 9.5 6.6-11.1 Fin al Performing Location [address] Celio [place]WARTZ [address]
--- OUTSIDE RECORDS SUMMARY | 2023-06-18 03:55 | External Medical Summary ---
Author Name Unknown Address [facility] [address] [place] [phone] Phone Organization K01:[facility] 100 [address] [facility] [address] Laboratory Report Ordering Provider Test Date Status LAURENCE DAVIS MD 12/12/2016 11:02:00 Final Obs # Observation Date Value Abnormality Reference Status Performing Location 0 HbA1C 12/12/2016 22:27 6.3 4.0-6.4 Final [facility] [address] [facility] [address]
--- OUTSIDE RECORDS SUMMARY | 2023-06-18 03:55 | External Medical Summary ---
Author Name Unknown Address [address] [place] [address] Phone Organization K01:[facility] 100 N [facility] [address] Laboratory Report Ordering Provider Test Date Status LAURENCE DAVIS MD 12/12/2016 11:02:00 Final Obs # Observation Date Value Abnormality Reference Status Performing Location 0 Albumin 12/12/2016 22:15 4.3 3.8-5.0 Final [facility] 100 [address] [facility] [address] 1 AST (Aspartate aminotransferase) 12/12/2016 22:15 14 10-35 Final 2 Alk Phos 12/12/2016 22:15 96 0-153 Final 3 ALT (Alanine aminotransferase) 12/12/2016 22:15 14 10-35 Final 4 Bilirubin, Total 12/12/2016 22:15 0.3 0-1.2 Final 5 Bilirubin, Direct 12/12/2016 22:15 <0.2 0-0.3 Final 6 Protein 12/12/2016 22:15 7.3 6.0-8.3 Final
--- OUTSIDE RECORDS SUMMARY | 2023-06-18 03:55 | External Medical Summary ---
Author Name Unknown Address [address] [place] [address] Phone Organization K09:[facility] [address] [place] [address] Laboratory Report Ordering Provider Test Date Status DAVID HAWK 02/05/2017 11:48:00 Final Observation Date Value Abnormality Reference Status BUN 02/05/2017 13:24 16 6-20 Fin al Creatinine 02/05/2017 13:24 0.9 0.5-1.0 Fi nal Performing Location [facility] [address] [place]WART[place] [address]
--- OUTSIDE RECORDS SUMMARY | 2023-06-18 03:55 | External Medical Summary ---
Author Name Unknown Address [address] [place] [address] Phone Organization K01:[facility] [address] [place] [phone] Laboratory Report Ordering Provider Test Date Status LAURENCE DAVIS MD 12/12/2016 11:02:00 Final Obs # Observation Date Value Abnormality Reference Status Performing Location 0 LDL, (direct) 12/12/2016 22:15 126 0-129 Final [facility] 100 [address] [facility] [address]
--- OUTSIDE RECORDS SUMMARY | 2023-06-18 03:55 | External Medical Summary ---
Author Name Unknown Address [address] [place] [address] ) Organization K03:[employer] [facility] [address] [place] [address] Laboratory Report Ordering Provider Test Date Status COREEN CASTILLO 02/12/2017 10:55:00 Final Observation Date Value Abnormality Reference Status Metanephrine [Mass/volume] i n Serum or Plasma 02/17/2017 15:12 33 <=57 Final Performing Location [facility] [address] [place] [address]
--- OUTSIDE RECORDS SUMMARY | 2023-06-18 03:55 | External Medical Summary ---
Author Name Unknown Address [facility] N [place] [phone] Phone Organization K01:[facility] [address] [place] [id number] Laboratory Report Ordering Provider Test Date Status JOSE A JOHNSON 02/24/2017 11:43:00 Final Observation Date Value Abnormality Reference Status Albumin, Urine 02/24/2017 22:10 <1.20 Final Creatinine [Moles/volume] in Urine 02/24/2017 22:10 59 Final Microalbumin / Creatinine Ratio 02/24/2017 22:10 <20 <30 Final Performing Location [facility] 100 N [facility] [address]
--- OUTSIDE RECORDS SUMMARY | 2023-06-18 03:55 | External Medical Summary ---
Author Name Unknown Address [facility] [place] [address] Phone Organization K01:[place] [address] [address] [place] [address] Laboratory Report Ordering Provider Test Date Status COREEN CASTILLO 02/12/2017 10:55:00 Final Observation Date Value Abnormality Reference Status Parathyrin.intact [Mass/volu me] in Serum or Plasma 02/12/2017 17:53 57 15-65 Final Performing Location [place] [id number]
[2023-06-18] MEDS: oxyCODONE HCL IR 5 MG TAB (IMMEDIATE RELEASE) PO PRN ×3 (03:56→20:00)
--- OUTSIDE RECORDS SUMMARY | 2023-06-18 03:56 | External Medical Summary ---
Author Name Unknown Address [address] [place] [phone] Phone Organization K01:[facility] 100 [address] [facility] [address] Laboratory Report Ordering Provider Test Date Status ALIX BARFIELD MD [id number] Final Obs # Observation Date Value Abnormality Reference Status Performing Location 0 Bilirubin, Direct [id number] <0.2 0-0.3 Final [facility] 100 [address] [facility] [address]
--- OUTSIDE RECORDS SUMMARY | 2023-06-18 03:56 | External Medical Summary ---
Author Name Unknown Address [facility] [place] [address] Phone Organization K01:[place] [address] [address] [place] [address] Laboratory Report Ordering Provider Test Date Status ALIX BARFIELD MD [id number] Final Obs # Observation Date Value Abnormality Reference Status Performing Location 0 Albumin [Mass/volume] in Serum or Plasma by Bromocresol green (BCG) dye binding method [id number] 4.6 3.8-5.0 Final [facility] 100 [address] [facility] [address]
--- OUTSIDE RECORDS SUMMARY | 2023-06-18 03:56 | External Medical Summary ---
Author Name Unknown Address [address] [place] [address] Phone Organization K09:[facility] [address] [place] [address] Laboratory Report Ordering Provider Test Date Status JOSE A JOHNSON MD 06/11/2016 12:26:00 Final Obs # Observation Date Value Abnormality Reference Status Performing Location 0 WBC, Total 6 12:40 10.84 Above high normal 4.00-10.80 Final [facility] [address] [place] [address] 1 RBC 6 12:40 3.48 Below low normal 3.85-5.15 Final 2 Hemoglobin 6 12:40 10.4 Below low normal 12.0-15.3 Final 3 HCT 6 12:40 33.1 Below low normal 36.0-45.2 Final 4 MCV 6 12:40 95.1 81.5-97.5 Final 5 MCH 6 12:40 29.9 27.0-34.0 Final 6 MCHC 6 12:40 31.4 Below low normal 32.0-36.0 Final 7 RDW 6 12:40 14.6 11.5-15.5 Final 8 Platelets 6 12:40 483 Above high normal 140-400 Final 9 MPV 6 12:40 8.9 6.6-11.1 Final 10 NEUT 6 12:40 56.0 40-75 Final 11 Lymphs % 6 12:40 29.5 18-42 Final 12 Monos 6 12:40 9.9 1-11 Final 13 Eosinophils 6 12:40 4.2 0-6 Final 14 Basos 6 12:40 0.4 0-2 Final 15 ANEUT 6 12:40 6.08 1.8-7.7 Final 16 Lymphs, absolute 6 12:40 3.20 1.0-4.8 Final 17 Monos, Abs 6 12:40 1.07 0.0-1.1 Final 18 Eos, Abs 6 12:40 0.45 0.0-0.7 Final 19 Basos, Abs 6 12:40 0.04 0.0-0.2 Final
--- OUTSIDE RECORDS SUMMARY | 2023-06-18 03:56 | External Medical Summary ---
Author Name Unknown Address [address] [place] [address] [place] [address] Phone Organization K08:[address] Celio [place]WARTZ [address] Laboratory Report Ordering Provider Test Date Status JOSE A JOHNSON MD 07/16/2016 11:28:00 Final Obs # Observation Date Value Abnormality Reference Status Performing Location 0 WBC, Total 6 12:09 9.92 4.00-10.[address] Celio [place] [address] 1 RBC 6 12:09 3.99 3.85-5.15 Final 2 Hemoglobin 6 12:09 11.7 Below low normal 12.0-15.3 Final 3 HCT 6 12:09 36.8 36.0-45.2 Final 4 MCV 6 12:09 92.2 81.5-97.5 Final 5 MCH 6 12:09 29.3 27.0-34.0 Final 6 MCHC 6 12:09 31.8 Below low normal 32.0-36.0 Final 7 RDW 6 12:09 12.9 11.5-15.5 Final 8 Platelets 6 12:09 411 Above high normal 140-400 Final 9 MPV 6 12:09 9.7 6.6-11.1 Final 10 NEUT 6 12:09 49.7 40-75 Final 11 Lymphs % 6 12:09 37.3 18-42 Final 12 Monos 6 12:09 9.2 1-11 Final 13 Eosinophils 6 12:09 3.5 0-6 Final 14 Basos 6 12:09 0.3 0-2 Final 15 ANEUT 6 12:09 4.93 1.8-7.7 Final 16 Lymphs, absolute 6 12:09 3.70 1.0-4.8 Final 17 Monos, Abs 6 12:09 0.91 0.0-1.1 Final 18 Eos, Abs 6 12:09 0.35 0.0-0.7 Final 19 Basos, Abs 6 12:09 0.03 0.0-0.2 Final
--- OUTSIDE RECORDS SUMMARY | 2023-06-18 03:56 | External Medical Summary ---
Author Name Unknown Address [address] [place] [phone] Phone Organization K01:[facility] [address] [place] 7144522 Laboratory Report Ordering Provider Test Date Status JOSE A JOHNSON MD [id number] Final Obs # Observation Date Value Abnormality Reference Status Performing Location 0 Protein, Urine [id number] 11 [facility] 100 N [facility] [address]
--- OUTSIDE RECORDS SUMMARY | 2023-06-18 03:56 | External Medical Summary ---
Author Name Unknown Address [address] [place] [phone] Phone Organization K01:[facility] [address] [place] [phone] Laboratory Report Ordering Provider Test Date Status ALIX BARFIELD MD [id number] Final Obs # Observation Date Value Abnormality Reference Status Performing Location 0 Bilirubin, Total [id number] 0.3 0-1.2 Fi nal [facility] 100 N [facility] [address]
--- OUTSIDE RECORDS SUMMARY | 2023-06-18 03:56 | External Medical Summary ---
Author Name Unknown Address [facility] N [place] [phone] Phone Organization K01:[facility] 100 N [facility] [address] Laboratory Report Ordering Provider Test Date Status JOSE A JOHNSON MD 08/27/2016 11:46:00 Final Obs # Observation Date Value Abnormality Reference Status Performing Location 0 HbA1C 08/27/2016 17:56 6.9 Above high normal 4.0-6.4 Final [facility] 100 [address] [facility] [address]
--- OUTSIDE RECORDS SUMMARY | 2023-06-18 03:56 | External Medical Summary ---
Author Name Unknown Address [address] [place], [place] [address] Phone Organization K09:[facility] [address] [place] [address] Laboratory Report Ordering Provider Test Date Status JOSE A JOHNSON MD 06/11/2016 12:26:00 Final Obs # Observation Date Value Abnormality Reference Status Performing Location 0 BUN 06/11/2016 13:29 9 6-20 Final [facility] [address] [place] [address] 1 Creatinine 06/11/2016 13:29 0.7 0.5-1.0 Final
--- OUTSIDE RECORDS SUMMARY | 2023-06-18 03:56 | External Medical Summary ---
Author Name Unknown Address [address] [place] [address] [place] [address] Phone Organization K08:[address] Celio [place]WARTZ [address] Laboratory Report Ordering Provider Test Date Status ALIX BARFIELD MD [id number] Final Obs # Observation Date Value Abnormality Reference Status Performing Location 0 Fasting status - Reported [id number] [address] Celio [place] [address] 1 Triglyceride [id number] 289 Above high normal <[address] Celio SCHWARTZ [address]
--- OUTSIDE RECORDS SUMMARY | 2023-06-18 03:56 | External Medical Summary ---
Author Name Unknown Address [facility] [place] [address] Phone Organization K01:[facility] [address] [place] [phone] Laboratory Report Ordering Provider Test Date Status JOSE A JOHNSON MD [id number] Final Obs # Observation Date Value Abnormality Reference Status Performing Location 0 LDL, (direct) [id number] 130 Above hig h normal 0-129 Final [place] [address] N [facility] [address]
--- OUTSIDE RECORDS SUMMARY | 2023-06-18 03:56 | External Medical Summary ---
Author Name Unknown Address [address] [place] [phone] Phone Organization K01:[facility] 100 [address] [facility] [address] Laboratory Report Ordering Provider Test Date Status ALIX BARFIELD MD [id number] Final Obs # Observation Date Value Abnormality Reference Status Performing Location 0 Magnesium [id number] 1.7 1.5-2.6 Final [facility] 100 [address] [facility] [address]
--- OUTSIDE RECORDS SUMMARY | 2023-06-18 03:56 | External Medical Summary ---
Author Name Unknown Address [address] [place] [phone] Phone Organization K01:[facility] [address] [place] [id number] Laboratory Report Ordering Provider Test Date Status JOSE A JOHNSON MD [id number] Final Obs # Observation Date Value Abnormality Reference Status Performing Location 0 BUN [id number] 12 6-20 Final [facility] 100 [address] [facility] [address] 1 Creatinine [id number] 0.8 0.5-1.0 Final [facility] 100 [address] [facility] [address]
--- OUTSIDE RECORDS SUMMARY | 2023-06-18 03:56 | External Medical Summary ---
Author Name Unknown Address [address] [place] [phone] Phone Organization K01:[facility] 100 [address] [place] [phone] Laboratory Report Ordering Provider Test Date Status ALIX BARFIELD MD [id number] Final Obs # Observation Date Value Abnormality Reference Status Performing Location 0 Bilirubin, Direct [id number] <0.2 0-0.3 Final [facility] 100 [address] [facility] [address]
--- OUTSIDE RECORDS SUMMARY | 2023-06-18 03:56 | External Medical Summary ---
Author Name Unknown Address [address] [id number] Phone Organization K01:[facility] [address] [facility] [address] Laboratory Report Ordering Provider Test Date Status ALIX BARFIELD MD [id number] Final Obs # Observation Date Value Abnormality Reference Status Performing Location 0 Alk Phos [id number] 105 0-153 Final [facility] [address] [facility] [address]
--- OUTSIDE RECORDS SUMMARY | 2023-06-18 03:56 | External Medical Summary ---
Author Name Unknown Address [facility] [place] [address] Phone Organization K01:[facility] [address] [id number] Laboratory Report Ordering Provider Test Date Status ALIX BARFIELD MD [id number] Final Obs # Observation Date Value Abnormality Reference Status Performing Location 0 T4, Free [id number] 1.13 0.9-1.7 Final [facility] [address] [id number]
--- OUTSIDE RECORDS SUMMARY | 2023-06-18 03:56 | External Medical Summary ---
Thyrotropin [Units/volume] in Serum or Plasma by Detection limit <= 0.005 mIU/L Created on: March 12, 2016 SAVITA YANG : 1940 Sex: Female Author Name Unknown Address [facility] [place] [address] Phone Organization K01:[place] [address] [address] [address] Laboratory Report Ordering Provider Test Date Status ALIX BARFIELD MD [id number] Final Obs # Observation Date Value Abnormality Reference Status Performing Location 0 Thyrotropin [Units/volume] in Serum or Plasma by Detection limit <= 0.005 mIU/L [id number] 0.75 0.27-4.[address] [address]
--- OUTSIDE RECORDS SUMMARY | 2023-06-18 03:56 | External Medical Summary ---
Author Name Unknown Address [address] [place] [address] Phone Organization K09:[facility] e [address] [place] [address] Laboratory Report Ordering Provider Test Date Status JOSE A JOHNSON MD 08/27/2016 11:46:00 Final Obs # Observation Date Value Abnormality Reference Status Performing Location 0 WBC, Total 6 12:25 9.46 4.00-10.80 Final [facility] [address] [place] [address] 1 RBC 6 12:25 4.33 3.85-5.15 Final 2 Hemoglobin 6 12:25 12.4 12.0-15.3 Final 3 HCT 6 12:25 39.4 36.0-45.2 Final 4 MCV 6 12:25 91.0 81.5-97.5 Final 5 MCH 6 12:25 28.6 27.0-34.0 Final 6 MCHC 6 12:25 31.5 Below low normal 32.0-36.0 Final 7 RDW 6 12:25 13.3 11.5-15.5 Final 8 Platelets 6 12:25 332 140-400 Final 9 MPV 6 12:25 9.6 6.6-11.1 Final 10 NEUT 6 12:25 51.9 40-75 Final 11 Lymphs % 6 12:25 33.7 18-42 Final 12 Monos 6 12:25 11.5 Above high normal 1-11 Final 13 Eosinophils 6 12:25 2.7 0-6 Final 14 Basos 6 12:25 0.2 0-2 Final 15 ANEUT 6 12:25 4.90 1.8-7.7 Final 16 Lymphs, absolute 6 12:25 3.19 1.0-4.8 Final 17 Monos, Abs 6 12:25 1.09 0.0-1.1 Final 18 Eos, Abs 6 12:25 0.26 0.0-0.7 Final 19 Basos, Abs 6 12:25 0.02 0.0-0.2 Final
--- OUTSIDE RECORDS SUMMARY | 2023-06-18 03:56 | External Medical Summary ---
Author Name Unknown Address [address] [phone] Phone Organization K01:[facility] [address] [id number] Laboratory Report Ordering Provider Test Date Status JOSE A JOHNSON MD 06/11/2016 12:26:00 Final Obs # Observation Date Value Abnormality Reference Status Performing Location 0 Ferritin 06/11/2016 17:35 62.6 13-150 Final [facility] [place] [address] [facility] [address]
--- OUTSIDE RECORDS SUMMARY | 2023-06-18 03:56 | External Medical Summary ---
Author Name Unknown Address [address] [phone] Phone Organization K01:[facility] [address] [id number] Laboratory Report Ordering Provider Test Date Status ALIX BARFIELD MD [id number] Final Obs # Observation Date Value Abnormality Reference Status Performing Location 0 HbA1C [id number] 6.7 Above high normal 4.0-6.4 Final [facility] [address] [facility] [address]
--- OUTSIDE RECORDS SUMMARY | 2023-06-18 03:56 | External Medical Summary ---
Author Name Unknown Address [address] [phone] Phone Organization K01:[facility] [address] [facility] [address] Laboratory Report Ordering Provider Test Date Status ALIX BARFIELD MD [id number] Final Obs # Observation Date Value Abnormality Reference Status Performing Location 0 Protein [id number] 7.4 6.0-8.3 Final [facility] [address] [facility] [address]
--- OUTSIDE RECORDS SUMMARY | 2023-06-18 03:56 | External Medical Summary ---
Author Name Unknown Address [facility] [place] [address] Phone Organization K01:[facility] [address] [address] Laboratory Report Ordering Provider Test Date Status JOSE A JOHNSON MD [id number] Final Obs # Observation Date Value Abnormality Reference Status Performing Location 0 Alanine aminotransferase [Enzymatic activity/volume] in Serum or Plasma by With P-5'-P [id number] Final [facility] [address] [id number]
--- OUTSIDE RECORDS SUMMARY | 2023-06-18 03:56 | External Medical Summary ---
Author Name Unknown Address [address] [place], [place] [address] Phone Organization K09:[facility] [address] [place] [address] Laboratory Report Ordering Provider Test Date Status JOSE A JOHNSON MD 08/27/2016 11:46:00 Final Obs # Observation Date Value Abnormality Reference Status Performing Location 0 BUN 08/27/2016 13:46 12 6-20 Final [facility] [address] [place] [address] 1 Creatinine 08/27/2016 13:46 0.8 0.5-1.0 Final
--- OUTSIDE RECORDS SUMMARY | 2023-06-18 03:56 | External Medical Summary ---
Author Name Unknown Address [address] [place] [address] Phone Organization K09:[facility] [address] [place] [address] Laboratory Report Ordering Provider Test Date Status JOSE A JOHNSON MD [id number] Final Obs # Observation Date Value Abnormality Reference Status Performing Location 0 WBC [id number] 12.33 Above high normal 4.00-10.80 Final [facility] [address] [place] [address] 1 RBC [id number] 4.44 3.85-5.15 Final [facility] [address] [place] [address] 2 Hemoglobin [id number] 12.7 12.0-15.3 Final [facility] [address] [place] [address] 3 HCT [id number] 40.3 36.0-45.2 Final G [place] [address] [place] [address] 4 MCV [id number] 90.8 81.5-97.5 Final [facility] [address] [place] [address] 5 MCH 674618226294 28.6 27.0-34.0 Final [facility] [address] [place] [address] 6 MCHC [id number] 31.5 Below low normal 32.0-36.0 Final [facility] [address] [place] [address] 7 RDW [id number] 13.3 11.5-15.5 Final G [place] [address] [place] [address] 8 Platelets 343774116340 342 140-400 Final [facility] [address] [place] [address] 9 MPV 885925304244 9.8 6.6-11.1 Final [facility] [address] [place] [address] 10 Segs 031128850625 50 40-75 Final [facility] [address] [place] [address] 11 Lymphocytes 958350976985 36 18-42 Final [facility] [address] [place] [address] 12 Monos 842351925012 9 1-11 Final [facility] [address] [place] [address] 13 Eosinophils 543042192641 5 0-6 Final [facility] [address] [place] [address] 14 Basos 210460403271 0 0-2 Final [facility] [address] [place] [address] 15 Segmented Neutrophils, Abs [id number] 6.14 1.8-7.7 Final [facility] [address] [place] [address] 16 Lymphs, Abs [id number] 4.47 1.0-4.8 Final [facility] [address] [place] [address] 17 Monos, Abs 996430642953 1.15 Above high normal 0.0-1.1 Final [facility] [address] [place] [address] 18 Eos, Abs [id number] 0.55 0.0-0.7 Final [facility] [address] [place] [address] 19 Basos, Abs 254707988701 0.02 0.0-0.2 Final [facility] [address] [place] [address]
--- OUTSIDE RECORDS SUMMARY | 2023-06-18 03:56 | External Medical Summary ---
Author Name Unknown Address [address] [place] [address] [place] [address] Phone Organization K08:[address] [place] [address] Laboratory Report Ordering Provider Test Date Status JOSE A JOHNSON MD 07/16/2016 11:28:00 Final Obs # Observation Date Value Abnormality Reference Status Performing Location 0 Fasting status - Reported 07/16/2016 11:34 [address] [place] [address] 1 Triglyceride 07/16/2016 21:57 193 <200 Final
--- OUTSIDE RECORDS SUMMARY | 2023-06-18 03:56 | External Medical Summary ---
Author Name Unknown Address [facility] [address] Phone Organization K01:[facility] [address] [address] Laboratory Report Ordering Provider Test Date Status JOSE A JOHNSON MD [id number] Final Obs # Observation Date Value Abnormality Reference Status Performing Location 0 Hemoglobin A1c/Hemoglobin.t otal in Blood by HPLC [id number] 6.4 4.0-6.4 Final [facility] 100 [address] [facility] [address]
--- OUTSIDE RECORDS SUMMARY | 2023-06-18 03:56 | External Medical Summary ---
Author Name Unknown Address [facility] [place] [address] Phone Organization K01:[facility] [address] [id number] Laboratory Report Ordering Provider Test Date Status JOSE A JOHNSON MD 07/16/2016 11:28:00 Final Obs # Observation Date Value Abnormality Reference Status Performing Location 0 ALT (Alanine aminotransferase ) 6 21:57 8 Below low normal 10-35 Final [facility] 100 [address] [facility] [address]
--- OUTSIDE RECORDS SUMMARY | 2023-06-18 03:56 | External Medical Summary ---
Author Name Unknown Address [address] [place] [address] [place] [address] Phone Organization K08:[address] [place] [address] Laboratory Report Ordering Provider Test Date Status ALIX BARFIELD MD [id number] Final Obs # Observation Date Value Abnormality Reference Status Performing Location 0 Leukocytes [#/volume] in Blood by Automated count [id number] 10.77 4.00-10.[address] [place] [address] 1 Erythrocytes [#/volume] in Blood by Automated count 024797543134 4.29 3.85-5.[address] [place] [address] 2 Hemoglobin 571037168925 12.5 12.0-15.[address] [place] [address] 3 HCT [id number] 39.9 36.0-45.[address] [place] [address] 4 Erythrocyte mean corpuscular volume [Entitic volume] by Automated count 477717647110 93.0 81.5-97.[address] [place] [address] 5 Erythrocyte mean corpuscular hemoglobin [Entitic mass] by Automated count 145275271849 29.1 27.0-34.[address] [place] [address] 6 Erythrocyte mean corpuscular hemoglobin concentration [Mass/volume] by Automated count 811377710295 31.3 Below low normal 32.0-36.[address] [place] [address] 7 Erythrocyte distribution width [Ratio] by Automated count [id number] 13.0 11.5-15.[address] [place] [address] 8 Platelets [#/volume] in Blood by Automated count 657736195441 346 140-[address] [place] [address] 9 Platelet mean volume [Entitic volume] in Blood by Automated count 899968666410 9.7 6.6-11.[address] [place] [address]
--- OUTSIDE RECORDS SUMMARY | 2023-06-18 03:56 | External Medical Summary ---
Author Name Unknown Address [facility] [place] [address] Phone Organization K01:[facility] [address] [address] Laboratory Report Ordering Provider Test Date Status ALIX BARFIELD MD [id number] Final Obs # Observation Date Value Abnormality Reference Status Performing Location 0 Aspartate aminotransferase [Enzymatic activity/volume] in Serum or Plasma by With P-5'-P [id number] Final [facility] [address] [address]48[address]
--- OUTSIDE RECORDS SUMMARY | 2023-06-18 03:57 | External Medical Summary ---
Author Name Unknown Organization K01:[facility], [address] [address] Laboratory Report Ordering Provider Test Date Status LICO THOMSON MD 12/20/2014 10:10:00-0400 Elisa encinas Obs # Observation Date Value ABNL Reference Status Pe rforming Location 1 LDL, (direct) 12/20/2014 22:16-0400 100 0-129 mg/dL Final LDL CHOLESTEROL REFERENCE RANGES(mg/dL) <100 OPTIMAL GOAL FOR HIGH RISK PATIENTS 100-129 NEAR OR ABOVE NORMAL 130-159 BORDERLINE HIGH 160-189 HIGH >189 VERY HIGH
--- OUTSIDE RECORDS SUMMARY | 2023-06-18 03:57 | External Medical Summary ---
Author Name Unknown Address [facility] [place] [address] Phone Organization K01:[facility] [address] [address] Laboratory Report Ordering Provider Test Date Status ALIX BARFIELD MD [id number] Final Obs # Observation Date Value Abnormality Reference Status Performing Location 0 BUN [id number] 8 6-20 Final [facility] [address] [facility] [address] 1 Creatinine [id number] 0.8 0.5-1.0 Final [facility] [address] [facility] [address]
--- OUTSIDE RECORDS SUMMARY | 2023-06-18 03:57 | External Medical Summary ---
Author Name Unknown Address [address] [phone] Phone Organization K01:[facility] [address] [id number] Laboratory Report Ordering Provider Test Date Status ALIX BARFIELD MD [id number] Final Obs # Observation Date Value Abnormality Reference Status Performing Location 0 Magnesium [id number] 1.7 1.5-2.[address] [facility] [address] [facility] [address]
--- OUTSIDE RECORDS SUMMARY | 2023-06-18 03:57 | External Medical Summary ---
Author Name Unknown Organization K01:[facility], [address] [address] Laboratory Report Ordering Provider Test Date Status LICO THOMSON MD 12/20/2014 10:10:00-0400 Elisa encinas Obs # Observation Date Value ABNL Reference Status Pe rforming Location 1 TSH 12/20/2014 23:15-0400 0.60 0.27-4.2 uIU/mL Final
--- OUTSIDE RECORDS SUMMARY | 2023-06-18 03:57 | External Medical Summary ---
Author Name Unknown Organization K01:[facility], [address] [address] Laboratory Report Ordering Provider Test Date Status LICO THOMSON MD 12/20/2014 10:10:00-0400 Elisa l Obs # Observation Date Value ABNL Reference Status Pe rforming Location 1 Albumin 12/20/2014 22:17-0400 4.1 3.8-5.0 g/dL Final 2 AST (Aspartate aminotransferase) 12/20/2014 22:17-0400 17 10-35 U/L Final 3 Alk Phos 12/20/2014 22:17-0400 99 0-153 U/L Final 4 ALT (Alanine aminotransferase) 12/20/2014 22:17-0400 13 10-35 U/L Final 5 Bilirubin, Total 12/20/2014 22:17-0400 0.2 L 0.3-1.3 mg/dL Final 6 Bilirubin, Direct 12/20/2014 22:17-0400 0.1 0-0.3 mg/dL Final 7 Protein 12/20/2014 22:17-0400 6.8 6.0-8.3 g/dL Final
--- OUTSIDE RECORDS SUMMARY | 2023-06-18 03:57 | External Medical Summary ---
Author Name Unknown Organization K08:[facility] [address] [place] [address] Laboratory Report Ordering Provider Test Date Status LICO THOMSON MD 12/20/2014 10:10:000400 Elisa l Obs # Observation Date Value ABNL Reference Status Pe rforming Location 1 WBC 12/20/2014 10:57-0400 10.21 4.00-10.80 K/uL Final 2 RBC 12/20/2014 10:57-0400 4.30 3.85-5.15 M/uL Final 3 HGB 12/20/2014 10:57-0400 12.1 12.0-15.3 g/dL Final 4 HCT 12/20/2014 10:57-0400 39.7 36.0-45.2 % Final 5 MCV 12/20/2014 10:57-0400 92.3 81.5-97.5 fL Final 6 MCH 12/20/2014 10:57-0400 28.1 27.0-34.0 pg Final 7 MCHC 12/20/2014 10:57-0400 30.5 L 32.0-36.0 g/dL Final 8 RDW 12/20/2014 10:57-0400 14.1 11.5-15.5 % Final 9 PLT 12/20/2014 10:57-0400 381 140-400 K/uL Final 10 MPV 12/20/2014 10:57-0400 9.7 6.6-11.1 fL Final
--- OUTSIDE RECORDS SUMMARY | 2023-06-18 03:57 | External Medical Summary ---
Author Name Unknown Address [address] [place] [address] Phone Organization K01:[facility] [address] [id number] Laboratory Report Ordering Provider Test Date Status ALIX BARFIELD MD [id number] Final Obs # Observation Date Value Abnormality Reference Status Performing Location 0 LDL, (direct) [id number] 92 0-129 Final [facility] [address] [facility] [address]
--- OUTSIDE RECORDS SUMMARY | 2023-06-18 03:57 | External Medical Summary ---
Author Name Unknown Organization K01:[facility], [address] [address] Laboratory Report Ordering Provider Test Date Status LICO THOMSON MD 12/20/2014 10:10:00-0400 Elisa encinas Obs # Observation Date Value ABNL Reference Status Pe rforming Location 1 BUN 12/20/2014 22:17-0400 12 6-20 mg/dL Final 2 Creatinine 12/20/2014 22:17-0400 0.8 0.5-1.2 mg/dL Final GFR should be used to assess renal function. Plasma/Serum creatinine may not be able to properly reflect renal function in some cases. If patient is , multiply estimated GFR by 1.159.
--- OUTSIDE RECORDS SUMMARY | 2023-06-18 03:57 | External Medical Summary ---
Author Name Unknown Address [address] [place] [address] [place] [address] Phone Organization K08:[address] [place] [address] Laboratory Report Ordering Provider Test Date Status ALIX BARFIELD MD [id number] Final Obs # Observation Date Value Abnormality Reference Status Performing Location 0 hours fasting 233331612543 [address] [place] [address] 1 Triglyceride [id number] 167 <[address] [place] [address]
--- OUTSIDE RECORDS SUMMARY | 2023-06-18 03:57 | External Medical Summary ---
Author Name Unknown Organization K01:[facility], [address] [address] Laboratory Report Ordering Provider Test Date Status ALEX NARANJO MD 04/03/2015 08:23:00-0400 Final Obs # Observation Date Value ABNL Reference Status Pe rforming Location 1 BUN 04/03/2015 14:14-0400 17 6-20 mg/dL Final
--- OUTSIDE RECORDS SUMMARY | 2023-06-18 03:57 | External Medical Summary ---
Author Name Unknown Organization K01:[facility] [address] [address] Laboratory Report Ordering Provider Test Date Status LICO THOMSON MD 12/20/2014 10:10:00-0400 Elisa encinas Obs # Observation Date Value ABNL Reference Status Pe rforming Location 1 T4, Free 12/20/2014 22:48-0400 1.20 0.7-1.7 ng/dL Final
--- OUTSIDE RECORDS SUMMARY | 2023-06-18 03:57 | External Medical Summary ---
Author Name Unknown Organization K01:[facility], [address] [address] Laboratory Report Ordering Provider Test Date Status LICO THOMSON MD 12/20/2014 10:10:00-0400 Elisa l Obs # Observation Date Value ABNL Reference Status Pe rforming Location 1 Lipase 12/20/2014 22:17-0400 11 L 16-63 U/L Final
--- OUTSIDE RECORDS SUMMARY | 2023-06-18 03:57 | External Medical Summary ---
Author Name Unknown Organization K1H:[facility] Laboratory Report Ordering Provider Test Date Status ALEX NARANJO MD 03/28/2015 11:44:00-0400 Final Obs # Observation Date Value ABNL Reference Status Pe rforming Location 1 Albumin, Urine 03/29/2015 09:40-0400 1.60 mg/dL Final 2 Creatinine, Random Urine 03/29/2015 09:40-0400 123 mg/dL Final 3 Microalbumin / Creatinine Ratio 03/29/2015 09:40-0400 13 <30 mg/g creat Final Normal: <30 mg/g creatinine High: 30-300 mg/g creatinine Very High and Nephrotic: >300 mg/g creatinine
--- OUTSIDE RECORDS SUMMARY | 2023-06-18 03:57 | External Medical Summary ---
Author Name Unknown Address [address] [phone] Phone Organization K01:[facility] [address] [id number] Laboratory Report Ordering Provider Test Date Status ALIX BARFIELD MD [id number] Final Obs # Observation Date Value Abnormality Reference Status Performing Location 0 TSH [id number] 0.57 0.27-4.2 Final [facility] [address] [facility] [address]
--- OUTSIDE RECORDS SUMMARY | 2023-06-18 03:57 | External Medical Summary ---
Author Name Unknown Organization K09:[facility] [address] [facility] [address] Laboratory Report Ordering Provider Test Date Status ALEX NARANJO MD 03/28/2015 11:43:00-0400 Final Obs # Observation Date Value ABNL Reference Status Pe rforming Location 1 BUN 03/28/2015 12:52-0400 12 6-20 mg/dL Final 2 Creatinine 03/28/2015 12:52-0400 0.8 0.5-1.2 mg/dL Final GFR should be used to assess renal function. Plasma/Serum creatinine may not be able to properly reflect renal function in some cases. If patient is , multiply estimated GFR by 1.159.
--- OUTSIDE RECORDS SUMMARY | 2023-06-18 03:57 | External Medical Summary ---
Author Name Unknown Organization K01:[facility], [address] [address] Laboratory Report Ordering Provider Test Date Status ALEX NARANJO MD 04/03/2015 08:23:00-0400 Final Obs # Observation Date Value ABNL Reference Status Pe rforming Location 1 Creatinine 04/03/2015 14:14-0400 0.9 0.5-1.2 mg/dL Final GFR should be used to assess renal function. Plasma/Serum creatinine may not be able to properly reflect renal function in some cases. If patient is , multiply estimated GFR by 1.159.
--- OUTSIDE RECORDS SUMMARY | 2023-06-18 03:57 | External Medical Summary ---
Author Name Unknown Organization K01:[facility], [address] [address] Laboratory Report Ordering Provider Test Date Status ALEX NARANJO MD 12/20/2014 13:23:00-0400 Final Obs # Observation Date Value ABNL Reference Status Pe rforming Location 1 Bacteria, UA 12/20/2014 18:02-0400 NONE Final 2 WBC, UA 12/20/2014 18:02-0400 1-4 /HPF Final 3 RBC, UA 12/20/2014 18:02-0400 1-4 /HPF Final 4 SQ EPITH CELLS,UA 12/20/2014 18:02-0400 FEW Final 5 Hyaline casts, UA 12/20/2014 18:02-0400 10-19 Final 6 CA OX CRYSTAL,UA 12/20/2014 18:02-0400 MANY Final
--- OUTSIDE RECORDS SUMMARY | 2023-06-18 03:57 | External Medical Summary ---
Author Name Unknown Organization K01:[facility], [address] [address] Laboratory Report Ordering Provider Test Date Status ALEX NARANJO MD 03/28/2015 11:43:00-0400 Final Obs # Observation Date Value ABNL Reference Status Pe rforming Location 1 TSH 5 17:22-040 0 0.43 0.27-4.2 uIU/mL Final 2 FREE T4 REFLEXIVE 5 17:22-040 0 NOT APPLICABLE 0.7-1.7 ng/dL Final
--- OUTSIDE RECORDS SUMMARY | 2023-06-18 03:57 | External Medical Summary ---
Author Name Unknown Organization K01:[facility], [address] [address] Laboratory Report Ordering Provider Test Date Status ALEX NARANJO MD 12/20/2014 13:24:00-0400 Final Obs # Observation Date Value ABNL Reference Status Pe rforming Location 1 specimen 12/20/2014 13:22-0400 URINE Final 2 result 12/22/2014 12:57-0400 >100,000 COLONIES/ML LACTOBACILLUS SPECIES Final 3 result 12/22/2014 12:57-0400 LESS THAN 10,000 COLONIES/ML MIXED STEVAN Final 4 report status 12/22/2014 17:25-0400 12/22/2014 FINAL Final
--- OUTSIDE RECORDS SUMMARY | 2023-06-18 03:57 | External Medical Summary ---
Author Name Unknown Organization K09:[facility] e, [address], [facility] [address] Laboratory Report Ordering Provider Test Date Status ALEX NARANJO MD 03/28/2015 11:43:00-0400 Final Obs # Observation Date Value ABNL Reference Status Pe rforming Location 1 hours fasting 03/28/2015 11:45-0400 12 hours Final 2 Triglyceride 03/28/2015 16:56-0400 201 H <200 mg/dL Final TRIGLYCERIDE REFERENCE RANGES (mg/dL) <150 NORMAL 150-199 BORDERLINE HIGH 200-499 HIGH >499 VERY HIGH TOTAL CHOLESTEROL REFERENCE RANGES(mg/dL) <200 DESIRABLE 200-239 BORDERLINE HIGH >239 HIGH HDL CHOLESTEROL REFERENCE RANGES(mg/dL) <40 LOW(UNDESIRABLE) >59 HIGH(DESIRABLE) LDL CHOLESTEROL REFERENCE RANGES(mg/dL) <100 OPTIMAL GOAL FOR HIGH RISK PATIENTS 100-129 NEAR OR ABOVE NORMAL 130-159 BORDERLINE HIGH 160-189 HIGH >189 VERY HIGH
--- OUTSIDE RECORDS SUMMARY | 2023-06-18 03:57 | External Medical Summary ---
Author Name Unknown Address [address] [place] [address] EFR[place] Brown [address] Phone Organization K08:[address] [place] [address] Laboratory Report Ordering Provider Test Date Status ALIX BARFIELD MD [id number] Final Obs # Observation Date Value Abnormality Reference Status Performing Location 0 WBC [id number] 15.57 Above high normal 4.00-10.[address] [place] [address] 1 RBC [id number] 4.18 3.85-5.[address] [place] [address] 2 Hemoglobin [id number] 12.1 12.0-15.[address] [place]Z [address] 3 HCT [id number] 38.9 36.0-45.[address] [place] [address] 4 MCV [id number] 93.1 81.5-97.[address] [place] [address] 5 MCH [id number] 28.9 27.0-34.[address] [place] [address] 6 MCHC [id number] 31.1 Below low normal 32.0-36.[address] [place] [address] 7 RDW [id number] 13.6 11.5-15.[address] [place] [address] 8 Platelets [id number] 279 140-[address] [place] [address] 9 MPV [id number] 9.7 6.6-11.[address] [place]Z [address]
--- OUTSIDE RECORDS SUMMARY | 2023-06-18 03:57 | External Medical Summary ---
Author Name Unknown Organization K01:[facility], [address] [address] Laboratory Report Ordering Provider Test Date Status ALEX NARANJO MD 03/28/2015 11:43:00-0400 Final Obs # Observation Date Value ABNL Reference Status Pe rforming Location 1 HbA1C 03/28/2015 19:05-0400 7.2 H 4.0-6.4 % Final 2 Glucose, estimated average 03/28/2015 19:05-0400 160 H <126 MG/DL Final
--- OUTSIDE RECORDS SUMMARY | 2023-06-18 03:57 | External Medical Summary ---
Author Name Unknown Organization K01:[facility], [address] [address] Laboratory Report Ordering Provider Test Date Status LICO THOMSON MD 12/20/2014 10:10:00-0400 Elisa encinas Obs # Observation Date Value ABNL Reference Status Pe rforming Location 1 HbA1C 12/20/2014 22:43-0400 7.0 H 4.0-6.4 % Final 2 Glucose, estimated average 12/20/2014 22:43-0400 154 H <126 MG/DL Final
--- OUTSIDE RECORDS SUMMARY | 2023-06-18 03:57 | External Medical Summary ---
Author Name Unknown Organization K08:[facility] [address] [place] [address] Laboratory Report Ordering Provider Test Date Status LICO THOMSON MD 12/20/2014 10:10:000400 Elisa l Obs # Observation Date Value ABNL Reference Status Pe rforming Location 1 hours fasting 12/20/2014 10:12-0400 12 hours Final 2 Triglyceride 12/20/2014 22:16-0400 177 <200 mg/dL Final TRIGLYCERIDE REFERENCE RANGES (mg/dL) [...]
--- OUTSIDE RECORDS SUMMARY | 2023-06-18 03:57 | External Medical Summary ---
Author Name Unknown Address [address] [id number] Phone Organization K01:[facility] [address] [id number] Laboratory Report Ordering Provider Test Date Status ALIX BARFIELD MD [id number] Final Obs # Observation Date Value Abnormality Reference Status Performing Location 0 T4, Free [id number] 1.19 0.9-1.7 Final [facility] [address] [facility] [address]
--- OUTSIDE RECORDS SUMMARY | 2023-06-18 03:57 | External Medical Summary ---
Author Name Unknown Organization K01:[facility], [address] [address] Laboratory Report Ordering Provider Test Date Status ALEX NARANJO MD 03/28/2015 11:44:00-0400 Final Obs # Observation Date Value ABNL Reference Status Pe rforming Location 1 Protein, Urine 03/28/2015 21:01-0400 12 mg/dL Final
--- OUTSIDE RECORDS SUMMARY | 2023-06-18 03:57 | External Medical Summary ---
Author Name Unknown Organization K01:[facility], [address] [address] Laboratory Report Ordering Provider Test Date Status LICO THOMSON MD 12/20/2014 10:10:00-0400 Elisa encinas Obs # Observation Date Value ABNL Reference Status Pe rforming Location 1 Magnesium 12/20/2014 22:17-0400 1.6 1.5-2.6 mg/dL Final
--- OUTSIDE RECORDS SUMMARY | 2023-06-18 03:58 | External Medical Summary ---
Author Name Unknown Organization K08:[facility] S[facility] [address] 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
--- OUTSIDE RECORDS SUMMARY | 2023-06-18 03:58 | External Medical Summary ---
Author Name Unknown Organization K09:[facility] [address] [place] [address] Laboratory Report Ordering Provider Test Date Status ALEX NARANJO MD 11/11/2014 12:52:00-0500 Final Obs # Observation Date Value ABNL Reference Status Pe rforming Location 1 BUN 11/11/2014 13:43-0500 11 6-20 mg/dL Final 2 Creatinine 11/11/2014 13:43-0500 0.7 0.5-1.2 mg/dL Final GFR should be used to assess renal function. Plasma/Serum creatinine may not be able to properly reflect renal function in some cases. If patient is , multiply estimated GFR by 1.159.
--- OUTSIDE RECORDS SUMMARY | 2023-06-18 03:58 | External Medical Summary ---
Author Name Unknown Organization K09:[facility] [address] [place] [address] Laboratory Report Ordering Provider Test Date Status ALEX NARANJO MD 08/04/2014 13:35:00-0400 Final Obs # Observation Date Value ABNL Reference Status Pe rforming Location 1 BUN 08/04/2014 14:46-0400 14 6-20 mg/dL Final 2 Creatinine 08/04/2014 14:46-0400 0.9 0.5-1.2 mg/dL Final GFR should be used to assess renal function. Plasma/Serum creatinine may not be able to properly reflect renal function in some cases. If patient is , multiply estimated GFR by 1.159.
--- OUTSIDE RECORDS SUMMARY | 2023-06-18 03:58 | External Medical Summary ---
Author Name Unknown Organization K01:[facility], [address] [address] Laboratory Report Ordering Provider Test Date Status ALEX NARANJO MD 08/04/2014 13:35:00-0400 Final Obs # Observation Date Value ABNL Reference Status Pe rforming Location 1 Ferritin 08/04/2014 22:30-0400 37.3 13-150 ng/mL Final
--- OUTSIDE RECORDS SUMMARY | 2023-06-18 03:58 | External Medical Summary ---
Author Name Unknown Organization K01:[facility], [address] [address] Laboratory Report Ordering Provider Test Date Status SHERIF PEMBERTON 05/20/2014 11:42:00-0400 Elisa encinas Obs # Observation Date Value ABNL Reference Status Pe rforming Location 1 TSH 05/20/2014 21:15-0400 1.04 0.27-4.2 uIU/mL Final
--- OUTSIDE RECORDS SUMMARY | 2023-06-18 03:58 | External Medical Summary ---
Author Name Unknown Organization K01:[facility], [address] [address] Laboratory Report Ordering Provider Test Date Status ALEX NARANJO MD 01/31/2014 11:34:00-0400 Final Obs # Observation Date Value ABNL Reference Status Pe rforming Location 1 Albumin, Urine 01/31/2014 18:28-0400 2.10 H 0-2 mg/dL Final 2 Creatinine, Random Urine 01/31/2014 18:28-0400 126 mg/dL Final 3 Microalbumin / Creatinine Ratio 01/31/2014 18:28-0400 17 <31 mg/g creat Final Normal: 0- 29 mg/g creatinine High: 30-300 mg/g creatinine Very High and Nephrotic: >300 mg/g creatinine
--- OUTSIDE RECORDS SUMMARY | 2023-06-18 03:58 | External Medical Summary ---
Author Name Unknown Organization K01:[facility], [address] [address] Laboratory Report Ordering Provider Test Date Status ALEX NARANJO MD 01/25/2014 13:04:00-0400 Final Obs # Observation Date Value ABNL Reference Status Pe rforming Location 1 H. pylori IgG 01/26/2014 12:10-0400 NEGATIVE NEG Final 2 H.PYLORI EIA VALUE 01/26/2014 12:10-0400 0.488 Final
--- OUTSIDE RECORDS SUMMARY | 2023-06-18 03:58 | External Medical Summary ---
Author Name Unknown Organization K08:[address] [place] [address] Laboratory Report Ordering Provider Test Date Status SHERIF MCBRIDE IRRIGATOR 05/20/2014 11:42:00-0400 Elisa l Obs # Observation Date Value ABNL Reference Status Pe rforming Location 1 BUN 05/20/2014 12:35-0400 9 6-20 mg/dL Final 2 Creatinine 05/20/2014 12:35-0400 0.9 0.5-1.2 mg/dL Final GFR should be used to assess renal function. Plasma/Serum creatinine may not be able to properly reflect renal function in some cases. If patient is , multiply estimated GFR by 1.159.
--- OUTSIDE RECORDS SUMMARY | 2023-06-18 03:58 | External Medical Summary ---
Author Name Unknown Organization K08:[facility] [address] [place] [address] Laboratory Report Ordering Provider Test Date Status SHERIF MISSAELMP PEMBERTON 05/20/2014 11:42:00-0400 Elisa encinas Obs # Observation Date Value ABNL Reference Status Pe rforming Location 1 Magnesium 05/20/2014 12:35-0400 2.1 1.5-2.6 mg/dL Final
--- OUTSIDE RECORDS SUMMARY | 2023-06-18 03:58 | External Medical Summary ---
Author Name Unknown Organization K01:[facility], [address] [address] Laboratory Report Ordering Provider Test Date Status ALEX NARANJO MD 01/31/2014 11:31:00-0400 Final Obs # Observation Date Value ABNL Reference Status Pe rforming Location 1 HbA1C 01/31/2014 21:22-0400 6.7 H 3.4-6.4 % Final 2 Glucose, estimated average 01/31/2014 21:22-0400 146 H <126 MG/DL Final
--- OUTSIDE RECORDS SUMMARY | 2023-06-18 03:58 | External Medical Summary ---
Author Name Unknown Organization K01:[facility], [address] [address] Laboratory Report Ordering Provider Test Date Status SHERIF PEMBERTON 05/20/2014 11:42:00-0400 Elisa encinas Obs # Observation Date Value ABNL Reference Status Pe rforming Location 1 LDL, (direct) 05/20/2014 21:01-0400 107 0-129 mg/dL Final LDL CHOLESTEROL REFERENCE RANGES(mg/dL) <100 OPTIMAL GOAL FOR HIGH RISK PATIENTS 100-129 NEAR OR ABOVE NORMAL 130-159 BORDERLINE HIGH 160-189 HIGH >189 VERY HIGH
--- OUTSIDE RECORDS SUMMARY | 2023-06-18 03:58 | External Medical Summary ---
Author Name Unknown Organization K09:[facility], [address], [facility] [address] Laboratory Report Ordering Provider Test Date Status ALEX NARANJO MD 08/04/2014 13:35:00-0400 Final Obs # Observation Date Value ABNL Reference Status Pe rforming Location 1 WBC 08/04/2014 13:46-0400 12.06 H 4.00-10.80 K/uL Final 2 RBC 08/04/2014 13:46-0400 4.47 3.85-5.15 M/uL Final 3 HGB 08/04/2014 13:46-0400 12.6 12.0-15.3 g/dL Final 4 HCT 08/04/2014 13:46-0400 40.2 36.0-45.2 % Final 5 MCV 08/04/2014 13:46-0400 89.9 81.5-97.5 fL Final 6 MCH 08/04/2014 13:46-0400 28.2 27.0-34.0 pg Final 7 MCHC 08/04/2014 13:46-0400 31.3 L 32.0-36.0 g/dL Final 8 RDW 08/04/2014 13:46-0400 14.2 11.5-15.5 % Final 9 PLT 08/04/2014 13:46-0400 367 140-400 K/uL Final 10 MPV 08/04/2014 13:46-0400 9.1 6.6-11.1 fL Final
--- OUTSIDE RECORDS SUMMARY | 2023-06-18 03:58 | External Medical Summary ---
Author Name Unknown Organization K01:[facility], [address] [address] Laboratory Report Ordering Provider Test Date Status ALEX NARANJO MD 05/10/2014 11:59:00-0400 Final Obs # Observation Date Value ABNL Reference Status Pe rforming Location 1 Ferritin 05/10/2014 17:45-0400 26.8 13-150 ng/mL Final
--- OUTSIDE RECORDS SUMMARY | 2023-06-18 03:58 | External Medical Summary ---
Author Name Unknown Organization K08:[facility] [address] 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
--- OUTSIDE RECORDS SUMMARY | 2023-06-18 03:58 | External Medical Summary ---
Author Name Unknown Organization K09:[facility] [place] [address] [facility] [address] Laboratory Report Ordering Provider Test Date Status ALEX NARANJO MD 01/31/2014 11:31:00-0400 Final Obs # Observation Date Value ABNL Reference Status Pe rforming Location 1 WBC 01/31/2014 11:39-0400 12.85 H 4.00-10.80 K/uL Final 2 RBC 01/31/2014 11:39-0400 4.50 3.85-5.15 M/uL Final 3 HGB 01/31/2014 11:39-0400 12.8 12.0-14.5 g/dL Final 4 HCT 01/31/2014 11:39-0400 40.1 36.0-44.5 % Final 5 MCV 01/31/2014 11:39-0400 89.1 81.5-97.5 fL Final 6 MCH 01/31/2014 11:39-0400 28.4 27.0-34.0 pg Final 7 MCHC 01/31/2014 11:39-0400 31.9 L 32.0-36.0 g/dL Final 8 RDW 01/31/2014 11:39-0400 13.9 11.5-15.5 % Final 9 PLT 01/31/2014 11:39-0400 344 140-400 K/uL Final 10 MPV 01/31/2014 11:39-0400 9.5 6.6-11.1 fL Final 11 Segs 01/31/2014 11:39-0400 60 40-75 % Final 12 Lymphocytes 01/31/2014 11:39-0400 27 18-42 % Final 13 Monos 01/31/2014 11:39-0400 10 1-11 % Final 14 Eosinophils 01/31/2014 11:39-0400 3 0-6 % Final 15 Basos 01/31/2014 11:39-0400 0 0-2 % Final 16 Segmented Neutrophils, Abs 01/31/2014 11:39-0400 7.76 H 1.8-7.7 K/uL Final 17 Lymphs, Abs 01/31/2014 11:39-0400 3.48 1.0-4.8 K/uL Final 18 Monos, Abs 01/31/2014 11:39-0400 1.23 H 0.0-1.1 K/uL Final 19 Eos, Abs 01/31/2014 11:39-0400 0.35 0.0-0.7 K/uL Final 20 Basos, Abs 01/31/2014 11:39-0400 0.03 0.0-0.2 K/uL Final
--- OUTSIDE RECORDS SUMMARY | 2023-06-18 03:58 | External Medical Summary ---
Author Name Unknown Organization K09:[facility] [address] [facility] [address] Laboratory Report Ordering Provider Test Date Status ALEX NARANJO MD 11/11/2014 12:52:00-0500 Final Obs # Observation Date Value ABNL Reference Status Pe rforming Location 1 WBC 11/11/2014 13:03-0500 9.34 4.00-10.80 K/uL Final 2 RBC 11/11/2014 13:03-0500 4.32 3.85-5.15 M/uL Final 3 HGB 11/11/2014 13:03-0500 12.0 12.0-15.3 g/dL Final 4 HCT 11/11/2014 13:03-0500 39.5 36.0-45.2 % Final 5 MCV 11/11/2014 13:03-0500 91.4 81.5-97.5 fL Final 6 MCH 11/11/2014 13:03-0500 27.8 27.0-34.0 pg Final 7 MCHC 11/11/2014 13:03-0500 30.4 L 32.0-36.0 g/dL Final 8 RDW 11/11/2014 13:03-0500 14.3 11.5-15.5 % Final 9 PLT 11/11/2014 13:03-0500 323 140-400 K/uL Final 10 MPV 11/11/2014 13:03-0500 9.2 6.6-11.1 fL Final 11 Segs 11/11/2014 13:35-0500 53 40-75 % Final 12 Lymphocytes 11/11/2014 13:35-0500 28 18-42 % Final 13 Monos 11/11/2014 13:35-0500 17 H 1-11 % Final 14 Eosinophils 11/11/2014 13:35-0500 2 0-6 % Final 15 Basos 11/11/2014 13:35-0500 0 0-2 % Final 16 Segmented Neutrophils, Abs 11/11/2014 13:35-0500 4.96 1.8-7.7 K/uL Final 17 Lymphs, Abs 11/11/2014 13:35-0500 2.60 1.0-4.8 K/uL Final 18 Monos, Abs 11/11/2014 13:35-0500 1.60 H 0.0-1.1 K/uL Final 19 Eos, Abs 11/11/2014 13:35-0500 0.15 0.0-0.7 K/uL Final 20 Basos, Abs 11/11/2014 13:35-0500 0.03 0.0-0.2 K/uL Final
--- OUTSIDE RECORDS SUMMARY | 2023-06-18 03:58 | External Medical Summary ---
Author Name Unknown Organization K09:[facility] [address] [place] [address] Laboratory Report Ordering Provider Test Date Status ALEX NARANJO MD 05/10/2014 11:59:00-0400 Final Obs # Observation Date Value ABNL Reference Status Pe rforming Location 1 BUN 05/10/2014 14:11-0400 16 6-20 mg/dL Final 2 Creatinine 05/10/2014 14:110400 1.0 0.5-1.2 mg/dL Final GFR should be used to assess renal function. Plasma/Serum creatinine may not be able to properly reflect renal function in some cases. If patient is , multiply estimated GFR by 1.159.
--- OUTSIDE RECORDS SUMMARY | 2023-06-18 03:58 | External Medical Summary ---
Author Name Unknown Organization K01:[facility], [address] [address] Laboratory Report Ordering Provider Test Date Status ALEX NARANJO MD 01/31/2014 11:31:00-0400 Final Obs # Observation Date Value ABNL Reference Status Pe rforming Location 1 LDL, (direct) 01/31/2014 17:11-0400 119 0-129 mg/dL Final LDL CHOLESTEROL REFERENCE RANGES(mg/dL) <100 OPTIMAL GOAL FOR HIGH RISK PATIENTS 100-129 NEAR OR ABOVE NORMAL 130-159 BORDERLINE HIGH 160-189 HIGH >189 VERY HIGH
--- OUTSIDE RECORDS SUMMARY | 2023-06-18 03:58 | External Medical Summary ---
Author Name Unknown Organization K01:[facility], [address] [address] Laboratory Report Ordering Provider Test Date Status ALEX NARANJO MD 08/04/2014 13:35:00-0400 Final Obs # Observation Date Value ABNL Reference Status Pe rforming Location 1 Vitamin B12 08/04/2014 22:30-0400 906 211-946 pg/mL Final
--- OUTSIDE RECORDS SUMMARY | 2023-06-18 03:58 | External Medical Summary ---
Author Name Unknown Organization K08:[facility] [address] [place] [address] Laboratory Report Ordering Provider Test Date Status LICO THOMSON MD 06/01/2014 11:41:00-0400 Elisa l Obs # Observation Date Value ABNL Reference Status Pe rforming Location 1 BUN 06/01/2014 13:34-0400 14 6-20 mg/dL Final 2 Creatinine 06/01/2014 13:34-0400 0.8 0.5-1.2 mg/dL Final GFR should be used to assess renal function. Plasma/Serum creatinine may not be able to properly reflect renal function in some cases. If patient is , multiply estimated GFR by 1.159.
--- OUTSIDE RECORDS SUMMARY | 2023-06-18 03:58 | External Medical Summary ---
Author Name Unknown Organization K01:[facility], [address] [address] Laboratory Report Ordering Provider Test Date Status ALEX NARANJO MD 01/31/2014 11:31:00-0400 Final Obs # Observation Date Value ABNL Reference Status Pe rforming Location 1 25OH VITAMIN D TOTAL 01/31/2014 18:17-0400 32.4 30.0-100.0 ng/mL Final Deficient: <20.0 ng/mL Insufficient: 20.0-29.9 ng/ml Sufficient: 30.0-100.0 ng/ml High: >100.0 ng/ml Refer to [facility] Osteoporosis for Practitioners Best Practice Guidelines for therapeutic recommendations.
--- OUTSIDE RECORDS SUMMARY | 2023-06-18 03:58 | External Medical Summary ---
Author Name Unknown Organization K09:[facility], [address], [place] [address] Laboratory Report Ordering Provider Test Date Status ALEX NARANJO MD 05/10/2014 11:59:00-0400 Final Obs # Observation Date Value ABNL Reference Status Pe rforming Location 1 WBC 05/10/2014 12: 12.62 H 4.00-10.80 K/uL Final 2 RBC 05/10/2014 12: 4.33 3.85-5.15 M/uL Final 3 HGB 05/10/2014 12: 12.2 12.0-14.5 g/dL Final 4 HCT 05/10/2014 12: 39.4 36.0-44.5 % Final 5 MCV 05/10/2014 12: 91.0 81.5-97.5 fL Final 6 MCH 05/10/2014 12: 28.2 27.0-34.0 pg Final 7 MCHC 05/10/2014 12: 31.0 L 32.0-36.0 g/dL Final 8 RDW 05/10/2014 12: 13.8 11.5-15.5 % Final 9 PLT 05/10/2014 12: 372 140-400 K/uL Final 10 MPV 05/10/2014 12: 9.5 6.6-11.1 fL Final
--- OUTSIDE RECORDS SUMMARY | 2023-06-18 03:58 | External Medical Summary ---
Author Name Unknown Organization K01:[facility], [address] [address] Laboratory Report Ordering Provider Test Date Status SHERIF PEMBERTON 05/20/2014 11:42:00-0400 Elisa encinas Obs # Observation Date Value ABNL Reference Status Pe rforming Location 1 T4, Free 05/20/2014 21:15-0400 1.15 0.7-1.7 ng/dL Final
--- OUTSIDE RECORDS SUMMARY | 2023-06-18 03:58 | External Medical Summary ---
Author Name Unknown Organization K09:[facility] [address] [place] [address] Laboratory Report Ordering Provider Test Date Status ALEX NARANJO MD 01/25/2014 13:04:00-0400 Final Obs # Observation Date Value ABNL Reference Status Pe rforming Location 1 BUN 01/25/2014 13:40-0400 13 6-20 mg/dL Final 2 Creatinine 01/25/2014 13:40-0400 1.0 0.5-1.2 mg/dL Final GFR should be used to assess renal function. Plasma/Serum creatinine may not be able to properly reflect renal function in some cases. If patient is , multiply estimated GFR by 1.159.
--- OUTSIDE RECORDS SUMMARY | 2023-06-18 03:58 | External Medical Summary ---
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 05/20/2014 11:42:00-0400 Elisa l Obs # Observation Date Value ABNL Reference Status Pe rforming Location 1 WBC 05/20/2014 11:56-0400 8.80 4.00-10.80 K/uL Final 2 RBC 05/20/2014 11:56-0400 4.09 3.85-5.15 M/uL Final 3 HGB 05/20/2014 11:56-0400 11.7 L 12.0-14.5 g/dL Final 4 HCT 05/20/2014 11:56-0400 37.8 36.0-44.5 % Final 5 MCV 05/20/2014 11:56-0400 92.4 81.5-97.5 fL Final 6 MCH 05/20/2014 11:56-0400 28.6 27.0-34.0 pg Final 7 MCHC 05/20/2014 11:56-0400 31.0 L 32.0-36.0 g/dL Final 8 RDW 05/20/2014 11:56-0400 13.7 11.5-15.5 % Final 9 PLT 05/20/2014 11:56-0400 355 140-400 K/uL Final 10 MPV 05/20/2014 11:56-0400 9.2 6.6-11.1 fL Final
--- OUTSIDE RECORDS SUMMARY | 2023-06-18 03:58 | External Medical Summary ---
Author Name Unknown Organization K01:[facility], [address] [address] Laboratory Report Ordering Provider Test Date Status SHERIF PEMBERTON 05/20/2014 11:42:00-0400 Elisa encinas Obs # Observation Date Value ABNL Reference Status Pe rforming Location 1 HbA1C 05/20/2014 21:49-0400 6.7 H 4.0-6.4 % Final 2 Glucose, estimated average 05/20/2014 21:49-0400 146 H <126 MG/DL Final
--- OUTSIDE RECORDS SUMMARY | 2023-06-18 03:58 | External Medical Summary ---
Author Name Unknown Organization K09:[facility] [address] [place] [address] Laboratory Report Ordering Provider Test Date Status ALEX NARANJO MD 01/31/2014 11:31:00-0400 Final Obs # Observation Date Value ABNL Reference Status Pe rforming Location 1 BUN 01/31/2014 13:24-0400 18 6-20 mg/dL Final 2 Creatinine 01/31/2014 13:24-0400 1.0 0.5-1.2 mg/dL Final GFR should be used to assess renal function. Plasma/Serum creatinine may not be able to properly reflect renal function in some cases. If patient is , multiply estimated GFR by 1.159.
--- OUTSIDE RECORDS SUMMARY | 2023-06-18 03:59 | External Medical Summary ---
Author Name Unknown Organization K01:[facility], [address] [address] Laboratory Report Ordering Provider Test Date Status SHERIF MORALEZBrittney 10/21/2013 11:58:00-0500 Final Obs # Observation Date Value ABNL Reference Status Pe rforming Location 1 T4, Free 10/21/2013 22:05-0500 1.28 0.7-1.7 ng/dL Final
--- OUTSIDE RECORDS SUMMARY | 2023-06-18 03:59 | External Medical Summary ---
Author Name Unknown Organization K01:[facility], [address] [address] Laboratory Report Ordering Provider Test Date Status SHERIF MORALEZBrittney 10/21/2013 11:58:00-0500 Final Obs # Observation Date Value ABNL Reference Status Pe rforming Location 1 LDL, (direct) 10/21/2013 21:58-0500 107 0-129 mg/dL Final LDL CHOLESTEROL REFERENCE RANGES(mg/dL) <100 OPTIMAL GOAL FOR HIGH RISK PATIENTS 100-129 NEAR OR ABOVE NORMAL 130-159 BORDERLINE HIGH 160-189 HIGH >189 VERY HIGH
--- OUTSIDE RECORDS SUMMARY | 2023-06-18 03:59 | External Medical Summary ---
Author Name Unknown Organization K01:[facility], [address] [address] Laboratory Report Ordering Provider Test Date Status MAXIM NG MD 01/19/2014 13:50:00-0400 F inal Obs # Observation Date Value ABNL Reference Status Pe rforming Location 1 Lipase 01/19/2014 22:16-0400 12 L 16-63 U/L Final
--- OUTSIDE RECORDS SUMMARY | 2023-06-18 03:59 | External Medical Summary ---
Author Name SEN DAY Organization K08:[facility] [address] [place] [address] Support Name Relationship Address Phone SEN DAY, HUMA PROV Unknown Unavaila ble Laboratory Report Ordering Provider Test Date Status HUMA CHATTERJEE MD 03/02/2013 11:36:00-0400 Elisa l Obs # Observation Date Value ABNL Reference Status Pe rforming Location 1 BUN 03/02/2013 13:21-0400 16 6-20 mg/dL Final 2 Creatinine 03/02/2013 13:21-0400 0.9 0.5-1.2 mg/dL Final GFR should be used to assess renal function. Plasma/Serum creatinine may not be able to properly reflect renal function in some cases.
--- OUTSIDE RECORDS SUMMARY | 2023-06-18 03:59 | External Medical Summary ---
Author Name Unknown Organization [id number]:[facility] [address], [place] [address] Laboratory Report Ordering Provider Test Date Status MAXIM NG MD 01/19/2014 13:50:00-0400 F inal Obs # Observation Date Value ABNL Reference Status Pe rforming Location 1 Amylase 01/19/2014 15:40-0400 34 28-100 U/L Final
--- OUTSIDE RECORDS SUMMARY | 2023-06-18 03:59 | External Medical Summary ---
Author Name Unknown Organization K09:[facility] [place] [address] [facility] [address] Laboratory Report Ordering Provider Test Date Status ALEX NARANJO MD 01/25/2014 13:04:00-0400 Final Obs # Observation Date Value ABNL Reference Status Pe rforming Location 1 WBC 01/25/2014 13:150400 12.85 H 4.00-10.80 K/uL Final 2 RBC 01/25/2014 13:15-0400 4.65 3.85-5.15 M/uL Final 3 HGB 01/25/2014 13:150400 13.1 12.0-14.5 g/dL Final 4 HCT 01/25/2014 13:150400 41.9 36.0-44.5 % Final 5 MCV 01/25/2014 13:15-0400 90.1 81.5-97.5 fL Final 6 MCH 01/25/2014 13:150400 28.2 27.0-34.0 pg Final 7 MCHC 01/25/2014 13:15-0400 31.3 L 32.0-36.0 g/dL Final 8 RDW 01/25/2014 13:15-0400 14.2 11.5-15.5 % Final 9 PLT 01/25/2014 13:150400 359 140-400 K/uL Final 10 MPV 01/25/2014 13:15-0400 9.5 6.6-11.1 fL Final 11 Segs 01/25/2014 13:15-0400 61 40-75 % Final 12 Lymphocytes 01/25/2014 13:15-0400 28 18-42 % Final 13 Monos 01/25/2014 13:15-0400 9 1-11 % Final 14 Eosinophils 01/25/2014 13:150400 2 0-6 % Final 15 Basos 01/25/2014 13:15-0400 0 0-2 % Final 16 Segmented Neutrophils, Abs 01/25/2014 13:15-0400 7.83 H 1.8-7.7 K/uL Final 17 Lymphs, Abs 01/25/2014 13:150400 3.56 1.0-4.8 K/uL Final 18 Monos, Abs 01/25/2014 13:150400 1.18 H 0.0-1.1 K/uL Final 19 Eos, Abs 01/25/2014 13:150400 0.26 0.0-0.7 K/uL Final 20 Basos, Abs 01/25/2014 13:0400 0.02 0.0-0.2 K/uL Final
--- OUTSIDE RECORDS SUMMARY | 2023-06-18 03:59 | External Medical Summary ---
Author Name Unknown Organization K08:[facility] [address] [place] [address] Laboratory Report Ordering Provider Test Date Status ALEX NARANJO MD 08/12/2013 10:33:00-0400 Final Obs # Observation Date Value ABNL Reference Status Pe rforming Location 1 BUN 08/12/2013 11:29-0400 12 6-20 mg/dL Final 2 Creatinine 08/12/2013 11:29-0400 0.8 0.5-1.2 mg/dL Final GFR should be used to assess renal function. Plasma/Serum creatinine may not be able to properly reflect renal function in some cases.
--- OUTSIDE RECORDS SUMMARY | 2023-06-18 03:59 | External Medical Summary ---
Author Name Unknown Organization K08:[facility] [address] [place] [address] Laboratory Report Ordering Provider Test Date Status SHERIF CANASHALL 10/21/2013 11:58:00-0500 Final Obs # Observation Date Value ABNL Reference Status Pe rforming Location 1 Albumin 10/21/2013 13:39-0500 4.3 3.8-5.0 g/dL Final 2 AST (Aspartate aminotransferase) 10/21/2013 13:39-0500 15 10-35 U/L Final 3 Alk Phos 10/21/2013 13:39-0500 124 0-153 U/L Final 4 ALT (Alanine aminotransferase) 10/21/2013 13:39-0500 15 10-35 U/L Final 5 Bilirubin, Total 10/21/2013 13:39-0500 0.3 0.3-1.3 mg/dL Final 6 Bilirubin, Direct 10/21/2013 13:39-0500 <0.2 0.0-0.3 mg/dL Final 7 Protein 10/21/2013 13:39-0500 7.9 6.0-8.3 g/dL Final
--- OUTSIDE RECORDS SUMMARY | 2023-06-18 03:59 | External Medical Summary ---
Author Name Unknown Organization K01:[facility], [address] [address] Laboratory Report Ordering Provider Test Date Status SHERIF RAE 10/21/2013 11:58:00-0500 Final Obs # Observation Date Value ABNL Reference Status Pe rforming Location 1 TSH 10/21/2013 22:05-0500 0.55 0.27-4.2 uIU/mL Final
--- OUTSIDE RECORDS SUMMARY | 2023-06-18 03:59 | External Medical Summary ---
Author Name SEN DAY Organization K01:[place] [address] [address] Support Name Relationship Address Phone SEN DAY, HUMA PROV Unknown Unavaila ble Laboratory Report Ordering Provider Test Date Status HUMA CHATTERJEE MD 03/02/2013 11:36:00-0400 Elisa encinas Obs # Observation Date Value ABNL Reference Status Pe rforming Location 1 aPTT 03/02/2013 22:20-0400 30 23-35 seconds Final
--- OUTSIDE RECORDS SUMMARY | 2023-06-18 03:59 | External Medical Summary ---
Author Name Unknown Organization K01:[facility], [address] [address] Laboratory Report Ordering Provider Test Date Status SHERIF MCBRIDE 10/21/2013 11:58:00-0500 Final Obs # Observation Date Value ABNL Reference Status Pe rforming Location 1 HbA1C 10/21/2013 23:45-0500 7.3 H 3.4-6.4 % Final 2 Glucose, estimated average 10/21/2013 23:45-0500 163 H <126 MG/DL Final
--- OUTSIDE RECORDS SUMMARY | 2023-06-18 03:59 | External Medical Summary ---
Author Name Unknown Organization K01:[facility], [address] [address] Laboratory Report Ordering Provider Test Date Status ALEX NARANJO MD 08/12/2013 10:33:00-0400 Final Obs # Observation Date Value ABNL Reference Status Pe rforming Location 1 Albumin, Urine 08/12/2013 21:51-0400 <0.30 0-2 mg/dL Final 2 Creatinine, Random Urine 08/12/2013 21:51-0400 78 mg/dL Final 3 Microalbumin / Creatinine Ratio 08/12/2013 21:51-0400 <4 <31 mg/g creat Final Normal: 0- 29 mg/g creatinine High: 30-300 mg/g creatinine Very High and Nephrotic: >300 mg/g creatinine
--- OUTSIDE RECORDS SUMMARY | 2023-06-18 03:59 | External Medical Summary ---
Author Name Unknown Organization K09:[facility] sahil, [address], [place] [address] Laboratory Report Ordering Provider Test Date Status ALEX NARANJO MD 01/25/2014 13:04:00-0400 Final Obs # Observation Date Value ABNL Reference Status Pe rforming Location 1 Albumin 01/25/2014 13:40-0400 4.5 3.8-5.0 g/dL Final 2 AST (Aspartate aminotransferase) 01/25/2014 13:40-0400 13 10-35 U/L Final 3 Alk Phos 01/25/2014 13:40-0400 128 0-153 U/L Final 4 ALT (Alanine aminotransferase) 01/25/2014 13:40-0400 12 10-35 U/L Final 5 Bilirubin, Total 01/25/2014 13:40-0400 0.3 0.3-1.3 mg/dL Final 6 Bilirubin, Direct 01/25/2014 13:40-0400 <0.2 0.0-0.3 mg/dL Final 7 Protein 01/25/2014 13:40-0400 8.0 6.0-8.3 g/dL Final
--- OUTSIDE RECORDS SUMMARY | 2023-06-18 03:59 | External Medical Summary ---
Author Name Unknown Organization K01:[facility], [address] [address] Laboratory Report Ordering Provider Test Date Status ALEX NARANJO MD 08/12/2013 10:33:00-0400 Final Obs # Observation Date Value ABNL Reference Status Pe rforming Location 1 LDL, (direct) 08/12/2013 21:28-0400 108 0-129 mg/dL Final LDL CHOLESTEROL REFERENCE RANGES(mg/dL) <100 OPTIMAL GOAL FOR HIGH RISK PATIENTS 100-129 NEAR OR ABOVE NORMAL 130-159 BORDERLINE HIGH 160-189 HIGH >189 VERY HIGH
--- OUTSIDE RECORDS SUMMARY | 2023-06-18 03:59 | External Medical Summary ---
Author Name Unknown Organization K09:[facility] [address] [facility] [address] Laboratory Report Ordering Provider Test Date Status MAXIM NG MD 01/19/2014 13:58:00-0400 F inal Obs # Observation Date Value ABNL Reference Status Pe rforming Location 1 specimen 01/19/2014 13:59-0400 CLEAN CATCH URINE Final 2 result 01/20/2014 18:28-0400 10,000 TO 100,000 COLONIES/ML DIPHTHEROIDS Final 3 result 01/20/2014 18:28-0400 LESS THAN 10,000 COLONIES/ML TWO OTHER SPECIES Final 4 report status 01/21/2014 07:40-0400 01/21/2014 FINAL Final
--- OUTSIDE RECORDS SUMMARY | 2023-06-18 03:59 | External Medical Summary ---
Author Name Unknown Organization K09:[facility] [place] [facility] [place] [address] Laboratory Report Ordering Provider Test Date Status MAXIM NG MD 01/19/2014 13:50:00-0400 F inal Obs # Observation Date Value ABNL Reference Status Pe rforming Location 1 WBC 01/19/2014 14:54-0400 11.30 H 4.00-10.80 K/uL Final 2 RBC 01/19/2014 14:54-0400 4.72 3.85-5.15 M/uL Final 3 HGB 01/19/2014 14:54-0400 13.0 12.0-14.5 g/dL Final 4 HCT 01/19/2014 14:54-0400 42.2 36.0-44.5 % Final 5 MCV 01/19/2014 14:54-0400 89.4 81.5-97.5 fL Final 6 MCH 01/19/2014 14:54-0400 27.5 27.0-34.0 pg Final 7 MCHC 01/19/2014 14:54-0400 30.8 L 32.0-36.0 g/dL Final 8 RDW 01/19/2014 14:54-0400 13.9 11.5-15.5 % Final 9 PLT 01/19/2014 14:54-0400 357 140-400 K/uL Final 10 MPV 01/19/2014 14:54-0400 9.9 6.6-11.1 fL Final 11 Segs 01/19/2014 14:54-0400 55 40-75 % Final 12 Lymphocytes 01/19/2014 14:54-0400 36 18-42 % Final 13 Monos 01/19/2014 14:54-0400 8 1-11 % Final 14 Eosinophils 01/19/2014 14:54-0400 1 0-6 % Final 15 Basos 01/19/2014 14:54-0400 0 0-2 % Final 16 Segmented Neutrophils, Abs 01/19/2014 14:54-0400 6.18 1.8-7.7 K/uL Final 17 Lymphs, Abs 01/19/2014 14:54-0400 4.03 1.0-4.8 K/uL Final 18 Monos, Abs 01/19/2014 14:54-0400 0.88 0.0-1.1 K/uL Final 19 Eos, Abs 01/19/2014 14:54-0400 0.16 0.0-0.7 K/uL Final 20 Basos, Abs 01/19/2014 14:54-0400 0.05 0.0-0.2 K/uL Final
--- OUTSIDE RECORDS SUMMARY | 2023-06-18 03:59 | External Medical Summary ---
Author Name Unknown Organization K08:[facility] [address] [place] [address] Laboratory Report Ordering Provider Test Date Status SHERIF CANASANITHAL 10/21/2013 11:58:00-0500 Final Obs # Observation Date Value ABNL Reference Status Pe rforming Location 1 Magnesium 10/21/2013 13:39-0500 1.9 1.5-2.6 mg/dL Final
--- OUTSIDE RECORDS SUMMARY | 2023-06-18 03:59 | External Medical Summary ---
Author Name Unknown Organization K08:[facility] [address] [place] [address] Laboratory Report Ordering Provider Test Date Status SHERIF CANASHALL 10/21/2013 11:58:00-0500 Final Obs # Observation Date Value ABNL Reference Status Pe rforming Location 1 WBC 10/21/2013 13:16-0500 10.41 4.00-10.80 K/uL Final 2 RBC 10/21/2013 13:16-0500 4.28 3.85-5.15 M/uL Final 3 HGB 10/21/2013 13:16-0500 12.1 12.0-14.5 g/dL Final 4 HCT 10/21/2013 13:16-0500 38.0 36.0-44.5 % Final 5 MCV 10/21/2013 13:16-0500 88.8 81.5-97.5 fL Final 6 MCH 10/21/2013 13:16-0500 28.3 27.0-34.0 pg Final 7 MCHC 10/21/2013 13:16-0500 31.8 L 32.0-36.0 g/dL Final 8 RDW 10/21/2013 13:16-0500 13.5 11.5-15.5 % Final 9 PLT 10/21/2013 13:16-0500 359 140-400 K/uL Final 10 MPV 10/21/2013 13:16-0500 9.5 6.6-11.1 fL Final
--- OUTSIDE RECORDS SUMMARY | 2023-06-18 03:59 | External Medical Summary ---
Author Name Unknown Organization K08:[facility] [address] [facility] [address] Laboratory Report Ordering Provider Test Date Status ALEX NARANJO MD 08/12/2013 10:33:00-0400 Final Obs # Observation Date Value ABNL Reference Status Pe rforming Location 1 ALT (Alanine aminotransferase) 08/12/2013 11:29-0400 10 10-35 U/L Final
--- OUTSIDE RECORDS SUMMARY | 2023-06-18 03:59 | External Medical Summary ---
Author Name Unknown Organization K01:[facility], [address] [address] Laboratory Report Ordering Provider Test Date Status ALEX NARANJO MD 08/12/2013 10:33:00-0400 Final Obs # Observation Date Value ABNL Reference Status Pe rforming Location 1 TSH 3 21:37-040 0 0.66 0.27-4.2 uIU/mL Final 2 FREE T4 REFLEXIVE 3 21:37-040 0 NOT APPLICABLE 0.7-1.7 Final
--- OUTSIDE RECORDS SUMMARY | 2023-06-18 03:59 | External Medical Summary ---
Author Name Unknown Organization K01:[facility], [address] [address] Laboratory Report Ordering Provider Test Date Status SHERIF CANASHALL 10/21/2013 11:58:00-0500 Final Obs # Observation Date Value ABNL Reference Status Pe rforming Location 1 hours fasting 10/21/2013 21:58-0500 NOT PROVIDED hours Final 2 Triglyceride 10/21/2013 21:58-0500 113 <200 mg/dL Final TRIGLYCERIDE REFERENCE RANGES (mg/dL) [...]
--- OUTSIDE RECORDS SUMMARY | 2023-06-18 03:59 | External Medical Summary ---
Author Name Unknown Organization K09:[facility] [address] [facility] [address] Laboratory Report Ordering Provider Test Date Status MAXIM NG MD 01/19/2014 13:50:00-0400 F inal Obs # Observation Date Value ABNL Reference Status Pe rforming Location 1 BUN 01/19/2014 15:40-0400 14 6-20 mg/dL Final 2 Creatinine 01/19/2014 15:40-0400 0.8 0.5-1.2 mg/dL Final GFR should be used to assess renal function. Plasma/Serum creatinine may not be able to properly reflect renal function in some cases. RESULT MAY BE FALSELY ELEVATED DUE TO HEMOLYSIS If patient is , multiply estimated GFR by 1.159.
--- OUTSIDE RECORDS SUMMARY | 2023-06-18 03:59 | External Medical Summary ---
Author Name Nexidia Organization K01:[facility], [address] [address] Support Name Relationship Address Phone SHERIF MCBRIDE Unknown Unavailable Laboratory Report Ordering Provider Test Date Status SHERIF MCBRIDE 01/14/2013 11:30:00-0400 Final Obs # Observation Date Value ABNL Reference Status Pe rforming Location 1 LDL, (direct) 01/14/2013 22:43-0400 94 0-129 mg/dL Final LDL CHOLESTEROL REFERENCE RANGES(mg/dL) <100 OPTIMAL GOAL FOR HIGH RISK PATIENTS 100-129 NEAR OR ABOVE NORMAL 130-159 BORDERLINE HIGH 160-189 HIGH >189 VERY HIGH
--- OUTSIDE RECORDS SUMMARY | 2023-06-18 03:59 | External Medical Summary ---
Author Name SEN DAY Organization K08:[address] [place] [address] Support Name Relationship Address Phone SEN DAY, HUMA PROV Unknown Unavaila ble Laboratory Report Ordering Provider Test Date Status HUMA CHATTERJEE MD 03/02/2013 11:36:00-0400 Elisa l Obs # Observation Date Value ABNL Reference Status Pe rforming Location 1 PT 03/02/2013 14: 12.3 11.2-14.2 seconds Final 2 INR 03/02/2013 14: 0.95 0.85-1.16 Final
--- OUTSIDE RECORDS SUMMARY | 2023-06-18 03:59 | External Medical Summary ---
Author Name Unknown Organization K01:[facility], [address] [address] Laboratory Report Ordering Provider Test Date Status ALEX NARANJO MD 08/12/2013 10:33:00-0400 Final Obs # Observation Date Value ABNL Reference Status Pe rforming Location 1 HbA1C 08/12/2013 23:08-0400 6.8 H 3.4-6.4 % Final 2 Glucose, estimated average 08/12/2013 23:08-0400 148 H <126 MG/DL Final
--- OUTSIDE RECORDS SUMMARY | 2023-06-18 03:59 | External Medical Summary ---
Author Name Unknown Organization K08:[facility] [address] [place] [address] Laboratory Report Ordering Provider Test Date Status SHERIF CANASHALL 10/21/2013 11:58:00-0500 Final Obs # Observation Date Value ABNL Reference Status Pe rforming Location 1 BUN 10/21/2013 13:39-0500 14 6-20 mg/dL Final 2 Creatinine 10/21/2013 13:39-0500 0.9 0.5-1.2 mg/dL Final GFR should be used to assess renal function. Plasma/Serum creatinine may not be able to properly reflect renal function in some cases.
--- OUTSIDE RECORDS SUMMARY | 2023-06-18 03:59 | External Medical Summary ---
Author Name SEN DAY Organization K08:[facility] [address] [place] [address] Support Name Relationship Address Phone SEN DAY, HUMA WELCH Unknown Unavaila ble Laboratory Report Ordering Provider Test Date Status HUMA CHATTERJEE MD 03/02/2013 11:36:00-0400 Elisa l Obs # Observation Date Value ABNL Reference Status Pe rforming Location 1 WBC 03/02/2013 12: 11.26 H 4.00-10.80 K/uL Final 2 RBC 03/02/2013 12: 4.26 3.85-5.15 M/uL Final 3 HGB 03/02/2013 12: 12.5 12.0-14.5 g/dL Final 4 HCT 03/02/2013 12: 38.5 36.0-44.5 % Final 5 MCV 03/02/2013 12: 90.4 81.5-97.5 fL Final 6 MCH 03/02/2013 12: 29.3 27.0-34.0 pg Final 7 MCHC 03/02/2013 12: 32.5 32.0-36.0 g/dL Final 8 RDW 03/02/2013 12: 13.5 11.5-15.5 % Final 9 PLT 03/02/2013 12: 316 140-400 K/uL Final 10 MPV 03/02/2013 12: 9.1 6.6-11.1 fL Final 11 diff type 03/02/2013 12: AUTO Final 12 Segs 03/02/2013 12:0 61 40-75 % Final 13 Lymphocytes 03/02/2013 12: 25 18-42 % Final 14 Monos 03/02/2013 12: 13 H 1-11 % Final 15 Eosinophils 03/02/2013 12: 1 0-6 % Final 16 Segmented Neutrophils, Abs 03/02/2013 12: 6.87 1.8-7.7 K/uL Final 17 Lymphs, Abs 03/02/2013 12: 2.82 1.0-4.8 K/uL Final 18 Monos, Abs 03/02/2013 12: 1.46 H 0.0-1.1 K/uL Final 19 Eos, Abs 03/02/2013 12: 0.11 0.0-0.7 K/uL Final
--- OUTSIDE RECORDS SUMMARY | 2023-06-18 03:59 | External Medical Summary ---
Author Name Unknown Organization K01:[facility], [address] [address] Laboratory Report Ordering Provider Test Date Status MAXIM NG MD 01/19/2014 13:57:00-0400 F inal Obs # Observation Date Value ABNL Reference Status Pe rforming Location 1 Color, UA 21:39-040 0 YELLOW YEL Final 2 Clarity, UA 21:39-040 0 SLIGHTLY CLOUDY A CLEAR Final 3 Glucose, UA 21:39-040 0 NEGATIVE NEG mg/dL Final 4 Bilirubin, UA 21:39-040 0 NEGATIVE NEG Final 5 Ketones, UA 21:39-040 0 NEGATIVE NEG mg/dL Final 6 SPECIFIC GRAVITY 21:39-040 0 1.026 1.003-1.030 Final 7 Hemoglobin, qual. 21:39-040 0 NEGATIVE NEG Final 8 pH, UA 21:39-040 0 6.0 5-6 units Final 9 Protein, UA 21:39-040 0 30 A NEG mg/dL Final 10 Urobilinogen, UA 21:39-040 0 NORMAL NORM EU/dL Final 11 Nitrite, UA 21:39-040 0 NEGATIVE NEG Final 12 Leukocyte Esterase, 21:39-040 0 NEGATIVE NEG Final 13 Bacteria, UA 21:39-040 0 OCCASIONAL Final 14 WBC, UA 21:39-040 0 1-4 /HPF Final 15 RBC, UA 21:39-040 0 1-4 /HPF Final 16 SQ EPITH CELLS,UA 21:39-040 0 OCCASIONAL Final 17 Mucus, UA 21:39-040 0 RARE Final 18 CA OX CRYSTAL,UA 21:39-040 0 MANY Final
--- OUTSIDE RECORDS SUMMARY | 2023-06-18 04:00 | External Medical Summary ---
Author Name JOSE A DAY Organization K08:[address] [place] [address] Support Name Relationship Address Phone JOSE A DAY, ALEX WELCH Unknown Unavailabl e Laboratory Report Ordering Provider Test Date Status ALEX NARANJO MD 08/03/2012 11:10:000400 Final Obs # Observation Date Value ABNL Reference Status Pe rforming Location 1 WBC 08/03/2012 11:33-0400 11.23 H 4.00-10.80 K/uL Final 2 RBC 08/03/2012 11:33-0400 4.08 3.85-5.15 M/uL Final 3 HGB 08/03/2012 11:33-0400 11.9 L 12.0-14.5 g/dL Final 4 HCT 08/03/2012 11:33-0400 37.7 36.0-44.5 % Final 5 MCV 08/03/2012 11:33-0400 92.4 81.5-97.5 fL Final 6 MCH 08/03/2012 11:33-0400 29.2 27.0-34.0 pg Final 7 MCHC 08/03/2012 11:33-0400 31.6 L 32.0-36.0 g/dL Final 8 RDW 08/03/2012 11:33-0400 13.2 11.5-15.5 % Final 9 PLT 08/03/2012 11:33-0400 349 140-400 K/uL Final 10 MPV 08/03/2012 11:33-0400 9.2 6.6-11.1 fL Final
--- OUTSIDE RECORDS SUMMARY | 2023-06-18 04:00 | External Medical Summary ---
Author Name OSHALL Organization K08:[facility] [place] [address] [place] [address] Support Name Relationship Address Phone SHERIF MCBRIDE Unknown Unavailable Laboratory Report Ordering Provider Test Date Status SHERIF MORALEZL 01/14/2013 11:30:00-0400 Final Obs # Observation Date Value ABNL Reference Status Pe rforming Location 1 Albumin 01/14/2013 12:38-0400 4.2 3.8-5.0 g/dL Final 2 AST (Aspartate aminotransferase) 01/14/2013 12:38-0400 11 10-35 U/L Final 3 Alk Phos 01/14/2013 12:38-0400 121 0-153 U/L Final 4 ALT (Alanine aminotransferase) 01/14/2013 12:38-0400 11 10-35 U/L Final 5 Bilirubin, Total 01/14/2013 12:38-0400 0.2 L 0.3-1.3 mg/dL Final 6 Bilirubin, Direct 01/14/2013 12:38-0400 <0.2 0.0-0.3 mg/dL Final 7 Protein 01/14/2013 12:38-0400 7.1 6.0-8.3 g/dL Final
--- OUTSIDE RECORDS SUMMARY | 2023-06-18 04:00 | External Medical Summary ---
Author Name JOSE A DAY Organization K09:[facility] sahil [facility] [address] , [place] [address] Support Name Relationship Address Phone JOSE A DAY, ALEX [facility] Unknown Unavailabl e Laboratory Report Ordering Provider Test Date Status ALEX NARANJO MD 02/14/2012 12:10:00-0400 Final Obs # Observation Date Value ABNL Reference Status Pe rforming Location 1 BUN 02/14/2012 12:45-0400 18 6-20 mg/dL Final 2 Creatinine 02/14/2012 12:45-0400 0.9 0.5-1.2 mg/dL Final GFR should be used to assess renal function. Plasma/Serum creatinine may not be able to properly reflect renal function in some cases.
--- OUTSIDE RECORDS SUMMARY | 2023-06-18 04:00 | External Medical Summary ---
Author Name TALIB PEMBERTON Organization K09:[facility] [address], [facility] [address] Support Name Relationship Address Phone OLIVER NGUYEN Unknown Unavailab le Laboratory Report Ordering Provider Test Date Status OLIVER PEMBERTON 09/09/2012 13:21:00-0500 Final Obs # Observation Date Value ABNL Reference Status Pe rforming Location 1 WBC 09/09/2012 13:31-0500 12.87 H 4.00-10.80 K/uL Final 2 RBC 09/09/2012 13:31-0500 4.18 3.85-5.15 M/uL Final 3 HGB 09/09/2012 13:31-0500 12.2 12.0-14.5 g/dL Final 4 HCT 09/09/2012 13:31-0500 38.3 36.0-44.5 % Final 5 MCV 09/09/2012 13:31-0500 91.6 81.5-97.5 fL Final 6 MCH 09/09/2012 13:31-0500 29.2 27.0-34.0 pg Final 7 MCHC 09/09/2012 13:31-0500 31.9 L 32.0-36.0 g/dL Final 8 RDW 09/09/2012 13:31-0500 13.4 11.5-15.5 % Final 9 PLT 09/09/2012 13:31-0500 340 140-400 K/uL Final 10 MPV 09/09/2012 13:31-0500 9.4 6.6-11.1 fL Final 11 diff type 09/09/2012 13:31-0500 SCAN DIFF Final 12 Segs 09/09/2012 14:05-0500 52 40-75 % Final 13 Lymphocytes 09/09/2012 14:05-0500 35 18-42 % Final 14 Monos 09/09/2012 14:05-0500 10 1-11 % Final 15 Eosinophils 09/09/2012 14:05-0500 3 0-6 % Final 16 Segmented Neutrophils, Abs 09/09/2012 14:05-0500 6.69 1.8-7.7 K/uL Final 17 Lymphs, Abs 09/09/2012 14:05-0500 4.50 1.0-4.8 K/uL Final 18 Monos, Abs 09/09/2012 14:05-0500 1.29 H 0.0-1.1 K/uL Final 19 Eos, Abs 09/09/2012 14:05-0500 0.39 0.0-0.7 K/uL Final
--- OUTSIDE RECORDS SUMMARY | 2023-06-18 04:00 | External Medical Summary ---
Author Name TALIB PEMBERTON Organization K01:[facility], [address] [address] Support Name Relationship Address Phone TALIB PEMBERTONOLIVER Unknown Unavailab le Laboratory Report Ordering Provider Test Date Status OLIVER PEMBERTON 09/09/2012 13:21:00-0500 Final Obs # Observation Date Value ABNL Reference Status Pe rforming Location 1 Lipase 09/09/2012 17:27-0500 12 L 16-63 U/L Final
--- OUTSIDE RECORDS SUMMARY | 2023-06-18 04:00 | External Medical Summary ---
Author Name OSHALL Organization K08:[facility] [place] [address] [place] [address] Support Name Relationship Address Phone SHERIF MCBRIDE Unknown Unavailable Laboratory Report Ordering Provider Test Date Status SHERIF MORALEZL 01/14/2013 11:30:00-0400 Final Obs # Observation Date Value ABNL Reference Status Pe rforming Location 1 WBC 01/14/2013 12:070400 11.69 H 4.00-10.80 K/uL Final 2 RBC 01/14/2013 12:07-0400 4.13 3.85-5.15 M/uL Final 3 HGB 01/14/2013 12:070400 11.9 L 12.0-14.5 g/dL Final 4 HCT 01/14/2013 12:-0400 37.5 36.0-44.5 % Final 5 MCV 01/14/2013 12:07-0400 90.8 81.5-97.5 fL Final 6 MCH 01/14/2013 12:07-0400 28.8 27.0-34.0 pg Final 7 MCHC 01/14/2013 12:07-0400 31.7 L 32.0-36.0 g/dL Final 8 RDW 01/14/2013 12:07-0400 13.7 11.5-15.5 % Final 9 PLT 01/14/2013 12:07-0400 348 140-400 K/uL Final 10 MPV 01/14/2013 12:07-0400 9.2 6.6-11.1 fL Final
--- OUTSIDE RECORDS SUMMARY | 2023-06-18 04:00 | External Medical Summary ---
Author Name JOSE A DAY Organization K08:[address] [place] [address] Support Name Relationship Address Phone JOSE A DAY, ALEX [facility] Unknown Unavailabl e Laboratory Report Ordering Provider Test Date Status ALEX NARANJO MD 05/25/2012 11:40:00-0400 Final Obs # Observation Date Value ABNL Reference Status Pe rforming Location 1 BUN 05/25/2012 14:18-0400 14 6-20 mg/dL Final 2 Creatinine 05/25/2012 14:18-0400 0.8 0.5-1.2 mg/dL Final GFR should be used to assess renal function. Plasma/Serum creatinine may not be able to properly reflect renal function in some cases.
--- OUTSIDE RECORDS SUMMARY | 2023-06-18 04:00 | External Medical Summary ---
Author Name JOSE A DAY Organization K09:[facility] [address] [place] [address] Support Name Relationship Address Phone JOSE A DAY, ALEX [facility] Unknown Unavailabl e Laboratory Report Ordering Provider Test Date Status ALEX NARANJO MD 09/11/2012 12:09:00-0500 Final Obs # Observation Date Value ABNL Reference Status Pe rforming Location 1 BUN 09/11/2012 12:45-0500 17 6-20 mg/dL Final 2 Creatinine 09/11/2012 12:45-0500 1.0 0.5-1.2 mg/dL Final GFR should be used to assess renal function. Plasma/Serum creatinine may not be able to properly reflect renal function in some cases.
--- OUTSIDE RECORDS SUMMARY | 2023-06-18 04:00 | External Medical Summary ---
Author Name JOSE A DAY Organization K01:[place] [address] [address] Support Name Relationship Address Phone JOSE A DAY, ALEX [facility] Unknown Unavailabl e Laboratory Report Ordering Provider Test Date Status ALEX NARANJO MD 08/03/2012 11:10:00-0400 Final Obs # Observation Date Value ABNL Reference Status Pe rforming Location 1 Ferritin 08/03/2012 22:29-0400 70.3 13-150 ng/mL Final
--- OUTSIDE RECORDS SUMMARY | 2023-06-18 04:00 | External Medical Summary ---
Author Name JOSE A DAY Organization K08:[address] [place] [address] Support Name Relationship Address Phone JOSE A DAY, ALEX [facility] Unknown Unavailabl e Laboratory Report Ordering Provider Test Date Status ALEX NARANJO MD 08/03/2012 11:10:00-0400 Final Obs # Observation Date Value ABNL Reference Status Pe rforming Location 1 ALT (Alanine aminotransferase) 08/03/2012 12:12-0400 14 10-35 U/L Final
--- OUTSIDE RECORDS SUMMARY | 2023-06-18 04:00 | External Medical Summary ---
Author Name JOSE A DAY Organization K08:[address] [place] [address] Support Name Relationship Address Phone JOSE A DAY, ALEX [facility] Unknown Unavailabl e Laboratory Report Ordering Provider Test Date Status ALEX NARANJO MD 08/03/2012 11:10:00-0400 Final Obs # Observation Date Value ABNL Reference Status Pe rforming Location 1 BUN 08/03/2012 12:12-0400 22 H 6-20 mg/dL Final 2 Creatinine 08/03/2012 12:30-0400 1.2 0.5-1.2 mg/dL Final GFR should be used to assess renal function. Plasma/Serum creatinine may not be able to properly reflect renal function in some cases. RESULTS RECHECKED
--- OUTSIDE RECORDS SUMMARY | 2023-06-18 04:00 | External Medical Summary ---
Author Name [facility] Organization K08:[facility] [address] [place] [address] Support Name Relationship Address Phone SHERIF MCBRIDE Unknown Unavailable Laboratory Report Ordering Provider Test Date Status SHERIF MCBRIDE 01/14/2013 11:30:00-0400 Final Obs # Observation Date Value ABNL Reference Status Pe rforming Location 1 hours fasting 01/14/2013 11:35-0400 12 hours Final 2 Triglyceride 01/14/2013 22:43-0400 157 <200 mg/dL Final TRIGLYCERIDE REFERENCE RANGES (mg/dL) [...]
--- OUTSIDE RECORDS SUMMARY | 2023-06-18 04:00 | External Medical Summary ---
Author Name TALIB NIECY Organization K09:[facility] sahil [facility] [address] , [place] [address] Support Name Relationship Address Phone OLIVER NGUYEN Unknown Unavailab le Laboratory Report Ordering Provider Test Date Status OLIVER STANLEYNP 09/09/2012 13:21:00-0500 Final Obs # Observation Date Value ABNL Reference Status Pe rforming Location 1 BUN 09/09/2012 14:22-0500 18 6-20 mg/dL Final 2 Creatinine 09/09/2012 14:22-0500 0.9 0.5-1.2 mg/dL Final GFR should be used to assess renal function. Plasma/Serum creatinine may not be able to properly reflect renal function in some cases.
--- OUTSIDE RECORDS SUMMARY | 2023-06-18 04:00 | External Medical Summary ---
Author Name JOSE A DAY Organization K01:[facility], [address] [address] Support Name Relationship Address Phone JOSE A DAY, ALEX [facility] Unknown Unavailabl e Laboratory Report Ordering Provider Test Date Status ALEX NAARNJO MD 01/14/2013 11:30:00-0400 Final Obs # Observation Date Value ABNL Reference Status Pe rforming Location 1 Albumin, Urine 01/14/2013 23:37-0400 1.10 0-2 mg/dL Final 2 Creatinine, Random Urine 01/14/2013 23:37-0400 246 mg/dL Final 3 Microalbumin / Creatinine Ratio 01/14/2013 23:37-0400 4 <31 mg/g creat Final Normal: 0- 29 mg/g creatinine High: 30-300 mg/g creatinine Very High and Nephrotic: >300 mg/g creatinine
--- OUTSIDE RECORDS SUMMARY | 2023-06-18 04:00 | External Medical Summary ---
Author Name JOSE A DAY Organization K01:[facility], [facility] [address] [address] Support Name Relationship Address Phone JOSE A DAY, ALEX [facility] Unknown Unavailabl e Laboratory Report Ordering Provider Test Date Status ALEX NARANJO MD 08/03/2012 11:10:00-0400 Final Obs # Observation Date Value ABNL Reference Status Pe rforming Location 1 Vitamin B12 08/03/2012 22: 612 211-946 pg/mL Final
--- OUTSIDE RECORDS SUMMARY | 2023-06-18 04:00 | External Medical Summary ---
Author Name OSABERDEEN Organization K08:[facility] [address] [place] [address] Support Name Relationship Address Phone SHERIF MCBRIDE Unknown Unavailable Laboratory Report Ordering Provider Test Date Status SHERIF MORALEZL 01/14/2013 11:30:00-0400 Final Obs # Observation Date Value ABNL Reference Status Pe rforming Location 1 Magnesium 01/14/2013 12:38-0400 1.9 1.5-2.6 mg/dL Final
--- OUTSIDE RECORDS SUMMARY | 2023-06-18 04:00 | External Medical Summary ---
Author Name JOSE A DAY Organization K09:[facility], [address] [facility] , [place] [address] Support Name Relationship Address Phone JOSE A DAY, ALEX [facility] Unknown Unavailabl e Laboratory Report Ordering Provider Test Date Status ALEX NARANJO MD 09/11/2012 12:09:00-0500 Final Obs # Observation Date Value ABNL Reference Status Pe rforming Location 1 WBC 09/11/2012 12:23-0500 10.73 4.00-10.80 K/uL Final 2 RBC 09/11/2012 12:23-0500 4.20 3.85-5.15 M/uL Final 3 HGB 09/11/2012 12:23-0500 12.2 12.0-14.5 g/dL Final 4 HCT 09/11/2012 12:23-0500 38.7 36.0-44.5 % Final 5 MCV 09/11/2012 12:23-0500 92.1 81.5-97.5 fL Final 6 MCH 09/11/2012 12:23-0500 29.0 27.0-34.0 pg Final 7 MCHC 09/11/2012 12:23-0500 31.5 L 32.0-36.0 g/dL Final 8 RDW 09/11/2012 12:23-0500 13.5 11.5-15.5 % Final 9 PLT 09/11/2012 12:23-0500 323 140-400 K/uL Final 10 MPV 09/11/2012 12:23-0500 9.6 6.6-11.1 fL Final
--- OUTSIDE RECORDS SUMMARY | 2023-06-18 04:00 | External Medical Summary ---
Author Name TALIB PEMBERTON Organization K01:[facility], [address] [address] Support Name Relationship Address Phone TALIB PEMBERTONOLIVER Unknown Unavailab le Laboratory Report Ordering Provider Test Date Status OLIVER PEMBERTON 09/09/2012 13:21:00-0500 Final Obs # Observation Date Value ABNL Reference Status Pe rforming Location 1 H. pylori IgG 09/10/2012 11:06-0500 NEGATIVE NEG Final 2 H.PYLORI EIA VALUE 09/10/2012 11:06-0500 0.543 Final
--- OUTSIDE RECORDS SUMMARY | 2023-06-18 04:00 | External Medical Summary ---
Author Name [facility] Organization K01:[facility], [address] [address] Support Name Relationship Address Phone SHERIF MCBRIDE PROV Unknown Unavailable Laboratory Report Ordering Provider Test Date Status SHERIF MCBRIDE 01/14/2013 11:30:00-0400 Final Obs # Observation Date Value ABNL Reference Status Pe rforming Location 1 T4, Free 01/14/2013 22:44-0400 0.96 0.7-1.7 ng/dL Final
--- OUTSIDE RECORDS SUMMARY | 2023-06-18 04:00 | External Medical Summary ---
Author Name JOSE A DAY Organization K01:[place] [address] [address] Support Name Relationship Address Phone JOSE A DAY, ALEX [facility] Unknown Unavailabl e Laboratory Report Ordering Provider Test Date Status ALEX NARANJO MD 08/03/2012 11:10:00-0400 Final Obs # Observation Date Value ABNL Reference Status Pe rforming Location 1 TSH 08/03/2012 22:29-0400 0.80 0.27-4.2 uIU/mL Final
--- OUTSIDE RECORDS SUMMARY | 2023-06-18 04:00 | External Medical Summary ---
Author Name JOSE A DAY Organization K01[facility], [address] [address] Support Name Relationship Address Phone JOSE A DAY, ALEX [facility] Unknown Unavailabl e Laboratory Report Ordering Provider Test Date Status ALEX NARANJO MD 08/03/2012 11:10:00-0400 Final Obs # Observation Date Value ABNL Reference Status Pe rforming Location 1 HbA1C 08/03/2012 21:59-0400 7.2 H 3.4-6.4 % Final 2 Glucose, estimated average 08/03/2012 21:59-0400 160 H <126 MG/DL Final
--- OUTSIDE RECORDS SUMMARY | 2023-06-18 04:00 | External Medical Summary ---
Author Name JOSE A DAY Organization K08:[facility] Liset Klein [address] [place] [address] Support Name Relationship Address Phone JOSE A DAY, ALEX WEL[facility] Unknown Unavailabl e Laboratory Report Ordering Provider Test Date Status ALEX NARANJO MD 08/03/2012 11:10:00-0400 Final Obs # Observation Date Value ABNL Reference Status Pe rforming Location 1 hours fasting 08/03/2012 11:23-0400 14 hours Final 2 Triglyceride 08/03/2012 22:12-0400 165 <200 mg/dL Final TRIGLYCERIDE REFERENCE RANGES (mg/dL) [...]
--- OUTSIDE RECORDS SUMMARY | 2023-06-18 04:00 | External Medical Summary ---
Author Name [facility] Organization K01:[facility], [address] [address] Support Name Relationship Address Phone SHERIF MCBRIDE Unknown Unavailable Laboratory Report Ordering Provider Test Date Status SHERIF MCBRIDE 01/14/2013 11:30:00-0400 Final Obs # Observation Date Value ABNL Reference Status Pe rforming Location 1 HbA1C 01/14/2013 23:18-0400 6.9 H 3.4-6.4 % Final 2 Glucose, estimated average 01/14/2013 23:18-0400 151 H <126 MG/DL Final
--- OUTSIDE RECORDS SUMMARY | 2023-06-18 04:00 | External Medical Summary ---
Author Name [facility] Organization K01:[facility], [address] [address] Support Name Relationship Address Phone SHERIF MCBRIDE PROV Unknown Unavailable Laboratory Report Ordering Provider Test Date Status SHERIF MORALEZL 01/14/2013 11:30:00-0400 Final Obs # Observation Date Value ABNL Reference Status Pe rforming Location 1 TSH 01/14/2013 22:43-0400 0.91 0.27-4.2 uIU/mL Final
--- OUTSIDE RECORDS SUMMARY | 2023-06-18 04:00 | External Medical Summary ---
Author Name TALIB PEMBERTON Organization K01:[facility], [address] [address] Support Name Relationship Address Phone TALIB PEMBERTONOLIVER Unknown Unavailab le Laboratory Report Ordering Provider Test Date Status OLIVER PEMBERTON 09/09/2012 13:21:00-0500 Final Obs # Observation Date Value ABNL Reference Status Pe rforming Location 1 Amylase 09/09/2012 17:27-0500 31 28-100 U/L Final
--- OUTSIDE RECORDS SUMMARY | 2023-06-18 04:01 | External Medical Summary ---
Author Name ALIX DAY Organization K01[facility] [address] [address] Support Name Relationship Address Phone LICO THOMSON MD PROV Unknown Unavaila ble Laboratory Report Ordering Provider Test Date Status LICO THOMSON MD 11/22/2011 10:45:00-0500 Elisa l Obs # Observation Date Value ABNL Reference Status Pe rforming Location 1 LDL, (direct) 11/22/2011 22:17-0500 75 0-129 mg/dL Final LDL CHOLESTEROL REFERENCE RANGES(mg/dL) <100 OPTIMAL GOAL FOR HIGH RISK PATIENTS 100-129 NEAR OR ABOVE NORMAL 130-159 BORDERLINE HIGH 160-189 HIGH >189 VERY HIGH
--- OUTSIDE RECORDS SUMMARY | 2023-06-18 04:01 | External Medical Summary ---
Author Name Unknown Organization K09:[facility], [address], [place] [address] Support Name Relationship Address Phone ALEX NARANJO MD PROV Unknown Unavailab le Laboratory Report Ordering Provider Test Date Status ALEX NARANJO MD 05/10/2011 10:24-8841 Final Obs # Observation Date Value ABNL Reference Status Pe rforming Location 1 HOURS FASTING 05/10/20 11 10:36-04 00 12 hours Final 2 Triglyceride 05/10/20 11 17:56-04 00 197 <200 mg/dL Final 3 Triglyceride 05/10/20 11 17:56-04 00 Final 4 Triglyceride 05/10/20 11 17:56-04 00 TRIGLYCERIDE REFERENCE RANGES (mg/dL) Final 5 Triglyceride 05/10/20 11 17:56-04 00 Final 6 Triglyceride 05/10/20 11 17:56-04 00 <150 NORMAL Final 7 Triglyceride 05/10/20 11 17:56-04 00 150-199 BORDERLINE HIGH Final 8 Triglyceride 05/10/20 11 17:56-04 00 200-499 HIGH Final 9 Triglyceride 05/10/20 11 17:56-04 00 >499 VERY HIGH Final 10 Cholesterol 05/10/20 11 17:56-04 00 253 H <200 mg/dL Final 11 HDL 05/10/20 11 17:56-04 00 49 40-59 mg/dL Final 12 Cholesterol / HDL ratio 05/10/20 11 17:56-04 00 5.2 Final 13 LDL (calculated) 05/10/20 11 17:56-04 00 165 H 0-129 mg/dL Final 14 LDL (calculated) 05/10/20 11 17:56-04 00 Final 15 LDL (calculated) 05/10/20 11 17:56-04 00 LIPID PANEL REFERENCE RANGES (mg/dL) Final 16 LDL (calculated) 05/10/20 11 17:56-04 00 Final 17 LDL (calculated) 05/10/20 11 17:56-04 00 LDL CHOLESTEROL Final 18 LDL (calculated) 05/10/20 11 17:56-04 00 <100 OPTIMAL GOAL FOR HIGH RISK PATIENTS Final 19 LDL (calculated) 05/10/20 11 17:56-04 00 100-129 NEAR OR ABOVE NORMAL Final 20 LDL (calculated) 05/10/20 11 17:56-04 00 130-159 BORDERLINE HIGH Final 21 LDL (calculated) 05/10/20 11 17:56-04 00 160-189 HIGH Final 22 LDL (calculated) 05/10/20 11 17:56-04 00 >189 VERY HIGH Final 23 LDL (calculated) 05/10/20 11 17:56-04 00 Final 24 LDL (calculated) 05/10/20 11 17:56-04 00 TOTAL CHOLESTEROL Final 25 LDL (calculated) 05/10/20 11 17:56-04 00 <200 DESIRABLE Final 26 LDL (calculated) 05/10/20 11 17:56-04 00 200-239 BORDERLINE HIGH Final 27 LDL (calculated) 05/10/20 11 17:56-04 00 >239 HIGH Final 28 LDL (calculated) 05/10/20 11 17:56-04 00 Final 29 LDL (calculated) 05/10/20 11 17:56-04 00 HDL [id number] Final 30 LDL (calculated) 05/10/20 11 17:56-04 00 <40 LOW Final 31 LDL (calculated) 05/10/20 11 17:56-04 00 40-59 NORMAL Final 32 LDL (calculated) 05/10/20 11 17:56-04 00 >59 HIGH Final
--- OUTSIDE RECORDS SUMMARY | 2023-06-18 04:01 | External Medical Summary ---
Author Name ALEX NARANJO MD Organization K08:[address] [facility] [address] Support Name Relationship Address Phone ALEX NARANJO MD PROV Unknown Unavailab le Laboratory Report Ordering Provider Test Date Status ALEX NARANJO MD 07/15/2011 09:59-0400 Final Obs # Observation Date Value ABNL Reference Status Pe rforming Location 1 ALT (Alanine aminotransferase) 07/15/2011 12:44-0400 14 10-35 U/L Final
--- OUTSIDE RECORDS SUMMARY | 2023-06-18 04:01 | External Medical Summary ---
Author Name Unknown Organization K09:[facility], [address], [place] [address] Support Name Relationship Address Phone ALEX NARANJO MD PROV Unknown Unavailab le Laboratory Report Ordering Provider Test Date Status ALEX NARANJO MD 05/10/2011 10:34-0400 Final Obs # Observation Date Value ABNL Reference Status Pe rforming Location 1 BUN 1 12:52-040 0 12 6-20 mg/dL Final 2 Creatinine 1 12:52-040 0 1.0 0.5-1.2 mg/dL Final 3 Creatinine 1 12:52-040 0 GFR should be used to assess renal function. Plasma/Serum creatinine may not be able to properly reflect renal function in some cases. Final 4 Sodium 1 12:52-040 0 140 135-146 mmol/L Final 5 Potassium 1 12:52-040 0 3.4 L 3.5-5.1 mmol/L Final 6 Cl 1 12:52-040 0 96 L 98-111 mmol/L Final 7 CO2 1 12:52-040 0 33 H 22-32 mmol/L Final 8 Glucose 1 12:52-040 0 155 H 70-120 mg/dL Final 9 Albumin, Serum 1 12:52-040 0 4.2 3.8-5.0 g/dL Final 10 AST (Aspartate aminotransferase ) 1 12:52-040 0 16 10-35 U/L Final 11 Alk Phos 1 12:52-040 0 113 25-125 U/L Final 12 Bilirubin, Total 1 12:52-040 0 0.3 0.3-1.3 mg/dL Final 13 Calcium 1 12:52-040 0 9.9 8.3-10.5 mg/dL Final 14 Protein 1 12:52-040 0 7.7 6.0-8.3 g/dL Final 15 ALT (Alanine aminotransferase ) 1 12:52-040 0 10 10-35 U/L Final 16 Anion gap 1 12:52-040 0 11 7-15 mmol/L Final 17 GFR / 1.73 sq M.predicted 1 12:52-040 0 54.5 L >60 mL/min Final
--- OUTSIDE RECORDS SUMMARY | 2023-06-18 04:01 | External Medical Summary ---
Author Name ALIX DAY Organization K08:[address] [place] [address] Support Name Relationship Address Phone ALIX DAY, LICO PROV Unknown Unavaila ble Laboratory Report Ordering Provider Test Date Status LICO THOMSON MD 11/22/2011 10:45:00-0500 Elisa l Obs # Observation Date Value ABNL Reference Status Pe rforming Location 1 Albumin 11/22/2011 13:02-0500 4.2 3.8-5.0 g/dL Final 2 AST (Aspartate aminotransferase) 11/22/2011 13:02-0500 16 10-35 U/L Final 3 Alk Phos 11/22/2011 13:02-0500 109 0-153 U/L Final 4 ALT (Alanine aminotransferase) 11/22/2011 13:02-0500 14 10-35 U/L Final 5 Bilirubin, Total 11/22/2011 13:02-0500 0.3 0.3-1.3 mg/dL Final 6 Bilirubin, Direct 11/22/2011 13:02-0500 <0.2 0.0-0.3 mg/dL Final 7 Protein 11/22/2011 13:02-0500 7.0 6.0-8.3 g/dL Final
--- OUTSIDE RECORDS SUMMARY | 2023-06-18 04:01 | External Medical Summary ---
Author Name ALIX DAY Organization K08:[address] [place] [address] Support Name Relationship Address Phone LICO THOMSON MD PROV Unknown Unavaila ble Laboratory Report Ordering Provider Test Date Status LICO THOMSON MD 11/22/2011 10:45:00-0500 Elisa l Obs # Observation Date Value ABNL Reference Status Pe rforming Location 1 BUN 11/22/2011 13:02-0500 15 6-20 mg/dL Final 2 Creatinine 11/22/2011 13:02-0500 0.9 0.5-1.2 mg/dL Final GFR should be used to assess renal function. Plasma/Serum creatinine may not be able to properly reflect renal function in some cases.
--- OUTSIDE RECORDS SUMMARY | 2023-06-18 04:01 | External Medical Summary ---
Author Name ALIX DAY Organization K08:[address] [place] [address] Support Name Relationship Address Phone ALIX DAY, LICO PROV Unknown Unavaila ble Laboratory Report Ordering Provider Test Date Status LICO THOMSON MD 11/22/2011 10:45:00-0500 Elisa l Obs # Observation Date Value ABNL Reference Status Pe rforming Location 1 WBC 11/22/2011 11:0500 12.20 H 4.00-10.80 K/uL Final 2 RBC 11/22/2011 11:0500 4.06 3.85-5.15 M/uL Final 3 HGB 11/22/2011 11:-0500 12.0 12.0-14.5 g/dL Final 4 HCT 11/22/2011 11:0500 37.4 36.0-44.5 % Final 5 MCV 11/22/2011 11:-0500 92.1 81.5-97.5 fL Final 6 MCH 11/22/2011 11:-0500 29.6 27.0-34.0 pg Final 7 MCHC 11/22/2011 11:-0500 32.1 32.0-36.0 g/dL Final 8 RDW 11/22/2011 11:-0500 13.1 11.5-15.5 % Final 9 PLT 11/22/2011 11:13-0500 324 140-400 K/uL Final 10 MPV 11/22/2011 11:13-0500 9.5 6.6-11.1 fL Final
--- OUTSIDE RECORDS SUMMARY | 2023-06-18 04:01 | External Medical Summary ---
Author Name Unknown Organization K01:[facility], [address] [address] Support Name Relationship Address Phone SHERIF MCBRIDE PROV Unknown Unavaila ble Laboratory Report Ordering Provider Test Date Status SHERIF MCBRIDE 07/01/2011 10:33-0400 Final Obs # Observation Date Value ABNL Reference Status Pe rforming Location 1 T4, Free 07/01/2011 22:51-0400 1.31 0.7-1.7 ng/dL Final
--- OUTSIDE RECORDS SUMMARY | 2023-06-18 04:01 | External Medical Summary ---
Author Name JOSE A DAY Organization K09:[facility], [address] [facility] , [place] [address] Support Name Relationship Address Phone JOSE A DAY, ALEX PROV Unknown Unavailabl e Laboratory Report Ordering Provider Test Date Status ALEX NARANJO MD 02/14/2012 12:10: Final Obs # Observation Date Value ABNL Reference Status Pe rforming Location 1 WBC 02/14/2012 12: 13.10 H 4.00-10.80 K/uL Final 2 RBC 02/14/2012 12: 4.16 3.85-5.15 M/uL Final 3 HGB 02/14/2012 12: 12.0 12.0-14.5 g/dL Final 4 HCT 02/14/2012 12: 38.2 36.0-44.5 % Final 5 MCV 02/14/2012 12: 91.8 81.5-97.5 fL Final 6 MCH 02/14/2012 12: 28.8 27.0-34.0 pg Final 7 MCHC 02/14/2012 12: 31.4 L 32.0-36.0 g/dL Final 8 RDW 02/14/2012 12: 13.6 11.5-15.5 % Final 9 PLT 02/14/2012 12: 347 140-400 K/uL Final 10 MPV 02/14/2012 12: 9.2 6.6-11.1 fL Final 11 diff type 02/14/2012 12: SCAN DIFF Final 12 Segs 02/14/2012 12:0 51 40-75 % Final 13 Lymphocytes 02/14/2012 12:0 35 18-42 % Final 14 Monos 02/14/2012 12:0 10 1-11 % Final 15 Eosinophils 02/14/2012 12: 4 0-6 % Final 16 Segmented Neutrophils, Abs 02/14/2012 12:43-0400 6.68 1.8-7.7 K/uL Final 17 Lymphs, Abs 02/14/2012 12:43-0400 4.59 1.0-4.8 K/uL Final 18 Monos, Abs 02/14/2012 12:43-0400 1.31 H 0.0-1.1 K/uL Final 19 Eos, Abs 02/14/2012 12:430400 0.52 0.0-0.7 K/uL Final
--- OUTSIDE RECORDS SUMMARY | 2023-06-18 04:01 | External Medical Summary ---
Author Name Unknown Organization K08:[facility] [address] [place] [address] Support Name Relationship Address Phone SHERIF MCBRIDE PROV Unknown Unavaila ble Laboratory Report Ordering Provider Test Date Status SHERIF MCBRIDE 07/01/2011 10:33-0400 Final Obs # Observation Date Value ABNL Reference Status Pe rforming Location 1 Albumin, Serum 07/01/2011 11:53-0400 4.1 3.8-5.0 g/dL Final 2 AST (Aspartate aminotransferase) 07/01/2011 11:53-0400 16 10-35 U/L Final 3 Alk Phos 07/01/2011 11:53-0400 113 0-153 U/L Final 4 ALT (Alanine aminotransferase) 07/01/2011 11:53-0400 15 10-35 U/L Final 5 Bilirubin, Total 07/01/2011 11:53-0400 0.3 0.3-1.3 mg/dL Final 6 Bilirubin, Direct 07/01/2011 11:53-0400 <0.2 0.0-0.3 mg/dL Final 7 Protein 07/01/2011 11:53-0400 6.6 6.0-8.3 g/dL Final
--- OUTSIDE RECORDS SUMMARY | 2023-06-18 04:01 | External Medical Summary ---
Author Name ALEX NARANJO MD Organization K08:[address] [place] [address] Support Name Relationship Address Phone ALEX NARANJO MD PROV Unknown Unavailab le Laboratory Report Ordering Provider Test Date Status ALEX NARANJO MD 07/15/2011 09:59-0400 Final Obs # Observation Date Value ABNL Reference Status Pe rforming Location 1 BUN 1 12:44-040 0 10 6-20 mg/dL Final 2 Creatinine 1 12:44-040 0 0.8 0.5-1.2 mg/dL Final 3 Creatinine 1 12:44-040 0 GFR should be used to assess renal function. Plasma/Serum creatinine may not be able to properly reflect renal function in some cases. Final 4 Sodium 1 12:44-040 0 140 135-146 mmol/L Final 5 Potassium 1 12:44-040 0 4.2 3.5-5.1 mmol/L Final 6 Cl 1 12:44-040 0 100 98-111 mmol/L Final 7 CO2 1 12:44-040 0 32 22-32 mmol/L Final 8 Glucose 1 12:44-040 0 163 H 70-120 mg/dL Final 9 Anion gap 1 12:44-040 0 8 7-15 mmol/L Final 10 Calcium 1 12:44-040 0 9.6 8.3-10.5 mg/dL Final 11 GFR (estimated) 1 12:44-040 0 >60.0 >60 mL/min Final
--- OUTSIDE RECORDS SUMMARY | 2023-06-18 04:01 | External Medical Summary ---
Author Name Unknown Organization K09:[facility], [address] , [place] [address] Support Name Relationship Address Phone ALEX NARANJO MD PROV Unknown Unavailab le Laboratory Report Ordering Provider Test Date Status ALEX NARANJO MD 05/10/2011 10:34-0400 Final Obs # Observation Date Value ABNL Reference Status Pe rforming Location 1 WBC 05/10/2011 10:49-0400 12.11 H 4.00-10.80 K/uL Final 2 RBC 05/10/2011 10:49-0400 4.93 3.85-5.15 M/uL Final 3 HGB 05/10/2011 10:49-0400 13.8 12.0-14.5 g/dL Final 4 HCT 05/10/2011 10:49-0400 43.4 36.0-44.5 % Final 5 MCV 05/10/2011 10:49-0400 88.0 81.5-97.5 fL Final 6 MCH 05/10/2011 10:49-0400 28.0 27.0-34.0 pg Final 7 MCHC 05/10/2011 10:49-0400 31.8 L 32.0-36.0 g/dL Final 8 RDW 05/10/2011 10:49-0400 14.0 11.5-15.5 % Final 9 PLT 05/10/2011 10:49-0400 328 140-400 K/uL Final 10 MPV 05/10/2011 10:49-0400 9.5 6.6-11.1 fL Final
--- OUTSIDE RECORDS SUMMARY | 2023-06-18 04:01 | External Medical Summary ---
Author Name ALIX DAY Organization K08:[address] [facility] [address] Support Name Relationship Address Phone ALIX DAY, LICO PROV Unknown Unavaila ble Laboratory Report Ordering Provider Test Date Status LICO THOMSON MD 11/22/2011 10:45:00-0500 Elisa l Obs # Observation Date Value ABNL Reference Status Pe rforming Location 1 Magnesium 11/22/2011 13:02-0500 1.8 1.5-2.6 mg/dL Final
--- OUTSIDE RECORDS SUMMARY | 2023-06-18 04:01 | External Medical Summary ---
Author Name ALIX DYA Organization K01:[facility], [address] [address] Support Name Relationship Address Phone LICO THOMSON MD PROV Unknown Unavaila ble Laboratory Report Ordering Provider Test Date Status LICO THOMSON MD 11/22/2011 10:45:00-0500 Elisa l Obs # Observation Date Value ABNL Reference Status Pe rforming Location 1 HbA1C 11/22/2011 22:21-0500 7.0 H 3.4-6.4 % Final 2 Glucose, estimated average 11/22/2011 22:21-0500 154 H <126 MG/DL Final
--- OUTSIDE RECORDS SUMMARY | 2023-06-18 04:01 | External Medical Summary ---
Author Name Unknown Organization K01:[facility], [address] [address] Support Name Relationship Address Phone SHERIF MCBRIDE PROV Unknown Unavaila ble Laboratory Report Ordering Provider Test Date Status SHERIF MCBRIDE 07/01/2011 10:33-0400 Final Obs # Observation Date Value ABNL Reference Status Pe rforming Location 1 LDL, Direct Measure 07/01/2011 22:52-0400 79 0-129 mg/dL Final
--- OUTSIDE RECORDS SUMMARY | 2023-06-18 04:01 | External Medical Summary ---
Author Name ALIX DAY Organization K01:[place] [address] [address] Support Name Relationship Address Phone ALIX DAY, LICO PROV Unknown Unavaila ble Laboratory Report Ordering Provider Test Date Status LICO THOMSON MD 11/22/2011 10:45:00-0500 Elisa l Obs # Observation Date Value ABNL Reference Status Pe rforming Location 1 TSH 11/22/2011 22:29-0500 1.37 0.27-4.2 uIU/mL Final
--- OUTSIDE RECORDS SUMMARY | 2023-06-18 04:01 | External Medical Summary ---
Author Name ALIX DAY Organization K01:[place] [address] [address] Support Name Relationship Address Phone LICO THOMSON MD PROV Unknown Unavaila ble Laboratory Report Ordering Provider Test Date Status LICO THOMSON MD 11/22/2011 10:45:00-0500 Elisa l Obs # Observation Date Value ABNL Reference Status Pe rforming Location 1 T4, Free 11/22/2011 22:29-0500 1.31 0.7-1.7 ng/dL Final
--- OUTSIDE RECORDS SUMMARY | 2023-06-18 04:01 | External Medical Summary ---
Author Name Unknown Organization K08:[facility] [address] [place] [address] Support Name Relationship Address Phone SHERIF MCBRIDE PROV Unknown Unavaila ble Laboratory Report Ordering Provider Test Date Status SHERIF MCBRIDE 07/01/2011 10:330400 Final Obs # Observation Date Value ABNL Reference Status Pe rforming Location 1 HOURS FASTING 07/01/20 11 10:36-04 00 12 hours Final 2 Triglyceride 07/01/20 11 22:52-04 00 126 <200 mg/dL Final 3 Triglyceride 07/01/20 11 22:52-04 00 Final 4 Triglyceride 07/01/20 11 22:52-04 00 TRIGLYCERIDE REFERENCE RANGES (mg/dL) Final 5 Triglyceride 07/01/20 11 22:52-04 00 Final 6 Triglyceride 07/01/20 11 22:52-04 00 <150 NORMAL Final 7 Triglyceride 07/01/20 11 22:52-04 00 150-199 BORDERLINE HIGH Final 8 Triglyceride 07/01/20 11 22:52-04 00 200-499 HIGH Final 9 Triglyceride 07/01/20 11 22:52-04 00 >499 VERY HIGH Final 10 Cholesterol 07/01/20 11 22:52-04 00 142 <200 mg/dL Final 11 HDL 07/01/20 11 22:52-04 00 50 40-59 mg/dL Final 12 Cholesterol / HDL ratio 07/01/20 11 22:52-04 00 2.8 Final 13 LDL (calculated) 07/01/20 11 22:52-04 00 67 0-129 mg/dL Final 14 LDL (calculated) 07/01/20 11 22:52-04 00 Final 15 LDL (calculated) 07/01/20 11 22:52-04 00 LIPID PANEL REFERENCE RANGES (mg/dL) Final 16 LDL (calculated) 07/01/20 11 22:52-04 00 Final 17 LDL (calculated) 07/01/20 11 22:52-04 00 LDL CHOLESTEROL Final 18 LDL (calculated) 07/01/20 11 22:52-04 00 <100 OPTIMAL GOAL FOR HIGH RISK PATIENTS Final 19 LDL (calculated) 07/01/20 11 22:52-04 00 100-129 NEAR OR ABOVE NORMAL Final 20 LDL (calculated) 07/01/20 11 22:52-04 00 130-159 BORDERLINE HIGH Final 21 LDL (calculated) 07/01/20 11 22:52-04 00 160-189 HIGH Final 22 LDL (calculated) 07/01/20 11 22:52-04 00 >189 VERY HIGH Final 23 LDL (calculated) 07/01/20 11 22:52-04 00 Final 24 LDL (calculated) 07/01/20 11 22:52-04 00 TOTAL CHOLESTEROL Final 25 LDL (calculated) 07/01/20 11 22:52-04 00 <200 DESIRABLE Final 26 LDL (calculated) 07/01/20 11 22:52-04 00 200-239 BORDERLINE HIGH Final 27 LDL (calculated) 07/01/20 11 22:52-04 00 >239 HIGH Final 28 LDL (calculated) 07/01/20 11 22:52-04 00 Final 29 LDL (calculated) 07/01/20 11 22:52-04 00 HDL [id number] Final 30 LDL (calculated) 07/01/20 11 22:52-04 00 <40 LOW Final 31 LDL (calculated) 07/01/20 11 22:52-04 00 40-59 NORMAL Final 32 LDL (calculated) 07/01/20 11 22:52-04 00 >59 HIGH Final
--- OUTSIDE RECORDS SUMMARY | 2023-06-18 04:01 | External Medical Summary ---
Author Name Unknown Organization K08:[address] [place] [address] Support Name Relationship Address Phone SHERIF MCBRIDE PROV Unknown Unavaila ble Laboratory Report Ordering Provider Test Date Status SHERIF MCBRIDE 07/01/2011 10:33-0400 Final Obs # Observation Date Value ABNL Reference Status Pe rforming Location 1 BUN 1 11:53-040 0 9 6-20 mg/dL Final 2 Creatinine 1 11:53-040 0 0.8 0.5-1.2 mg/dL Final 3 Creatinine 1 11:53-040 0 GFR should be used to assess renal function. Plasma/Serum creatinine may not be able to properly reflect renal function in some cases. Final 4 Sodium 1 11:53-040 0 142 135-146 mmol/L Final 5 Potassium 1 11:53-040 0 3.8 3.5-5.1 mmol/L Final 6 Cl 1 11:53-040 0 100 98-111 mmol/L Final 7 CO2 1 11:53-040 0 34 H 22-32 mmol/L Final 8 Glucose 1 11:53-040 0 158 H 70-120 mg/dL Final 9 Anion gap 1 11:53-040 0 8 7-15 mmol/L Final 10 Calcium 1 11:53-040 0 9.4 8.3-10.5 mg/dL Final 11 GFR / 1.73 sq M.predicted 1 11:53-040 0 >60.0 >60 mL/min Final
--- OUTSIDE RECORDS SUMMARY | 2023-06-18 04:01 | External Medical Summary ---
Author Name Unknown Organization K01:[facility], [address] [address] Support Name Relationship Address Phone ALEX NARANJO MD PROV Unknown Unavailab le Laboratory Report Ordering Provider Test Date Status ALEX NARANJO MD 05/10/2011 10:34-0400 Final Obs # Observation Date Value ABNL Reference Status Pe rforming Location 1 HbA1C 05/10/2011 18:25-0400 7.6 H 3.4-6.4 % Final 2 Glucose, estimated average 05/10/2011 18:25-0400 171 H <126 MG/DL Final
--- OUTSIDE RECORDS SUMMARY | 2023-06-18 04:01 | External Medical Summary ---
Author Name ALEX NARANJO MD Organization K01:[facility], [address] [address] Support Name Relationship Address Phone ALEX NARANJO MD PROV Unknown Unavailab le Laboratory Report Ordering Provider Test Date Status ALEX NARANJO MD 07/15/2011 09:59-0400 Final Obs # Observation Date Value ABNL Reference Status Pe rforming Location 1 HbA1C 07/16/2011 01:46-0400 7.9 H 3.4-6.4 % Final 2 Glucose, estimated average 07/16/2011 01:46-0400 180 H <126 MG/DL Final
--- OUTSIDE RECORDS SUMMARY | 2023-06-18 04:01 | External Medical Summary ---
Author Name Unknown Organization K01:[facility], [address] [address] Support Name Relationship Address Phone SHERIF MCBRIDE PROV Unknown Unavaila ble Laboratory Report Ordering Provider Test Date Status SHERIF MCBRIDE 07/01/2011 10:33-0400 Final Obs # Observation Date Value ABNL Reference Status Pe rforming Location 1 TSH 07/01/2011 22:51-0400 0.94 0.27-4.2 uIU/mL Final
--- OUTSIDE RECORDS SUMMARY | 2023-06-18 04:01 | External Medical Summary ---
Author Name JOSE A DAY Organization K01:[facility], [address] [address] Support Name Relationship Address Phone JOSE A DAY, ALEX [facility] Unknown Unavailabl e Laboratory Report Ordering Provider Test Date Status ALEX NARANJO MD 11/22/2011 10:45:00-0500 Final Obs # Observation Date Value ABNL Reference Status Pe rforming Location 1 Albumin, Urine 11/23/2011 00:49-0500 0.50 0-2 mg/dL Final 2 Creatinine, Random Urine 11/23/2011 00:49-0500 107 mg/dL Final 3 Microalbumin / Creatinine Ratio 11/23/2011 00:49-0500 5 <31 mg/g creat Final Normal: 0- 29 mg/g creatinine High: 30-300 mg/g creatinine Very High and Nephrotic: >300 mg/g creatinine
--- OUTSIDE RECORDS SUMMARY | 2023-06-18 04:01 | External Medical Summary ---
Author Name ALIX DAY [facility] [address] [place] [address] Support Name Relationship Address Phone ALIX DAY, LICO PROV Unknown Unavaila ble Laboratory Report Ordering Provider Test Date Status LICO THOMSON MD 11/22/2011 10:45:00-0500 Elisa l Obs # Observation Date Value ABNL Reference Status Pe rforming Location 1 hours fasting 11/22/2011 10:49-0500 12 hours Final 2 Triglyceride 11/22/2011 22:17-0500 139 <200 mg/dL Final TRIGLYCERIDE REFERENCE RANGES (mg/dL) <150 NORMAL 150-199 BORDERLINE HIGH 200-499 HIGH >499 VERY HIGH TOTAL CHOLESTEROL REFERENCE RANGES(mg/dL) <200 DESIRABLE 200-239 BORDERLINE HIGH >239 HIGH HDL CHOLESTEROL REFERENCE RANGES(mg/dL) <40 LOW >59 HIGH LDL CHOLESTEROL REFERENCE RANGES(mg/dL) <100 OPTIMAL GOAL FOR HIGH RISK PATIENTS 100-129 NEAR OR ABOVE NORMAL 130-159 BORDERLINE HIGH 160-189 HIGH >189 VERY HIGH
--- OUTSIDE RECORDS SUMMARY | 2023-06-18 04:01 | External Medical Summary ---
Author Name Unknown Organization K01:[facility], [address] [address] Support Name Relationship Address Phone SHERIF MCBRIDE PROV Unknown Unavaila ble Laboratory Report Ordering Provider Test Date Status SHERIF MCBRIDE 07/01/2011 10:33-0400 Final Obs # Observation Date Value ABNL Reference Status Pe rforming Location 1 HbA1C 07/02/2011 02:01-0400 7.9 H 3.4-6.4 % Final 2 Glucose, estimated average 07/02/2011 02:01-0400 180 H <126 MG/DL Final
--- OUTSIDE RECORDS SUMMARY | 2023-06-18 04:01 | External Medical Summary ---
Author Name Unknown Organization K01:[facility], [address] [address] Support Name Relationship Address Phone ALEX NARANJO MD PROV Unknown Unavailab le Laboratory Report Ordering Provider Test Date Status ALEX NARANJO MD 05/10/2011 10:34-0400 Final Obs # Observation Date Value ABNL Reference Status Pe rforming Location 1 TSH 05/10/2011 18:21-0400 0.80 0.27-4.2 uIU/mL Final
--- OUTSIDE RECORDS SUMMARY | 2023-06-18 04:01 | External Medical Summary ---
Author Name Unknown Organization K08:[address] [place] [address] Support Name Relationship Address Phone SHERIF MCBRIDE PROV Unknown Unavaila ble Laboratory Report Ordering Provider Test Date Status SHERIF MCBRIDE 07/01/2011 10:33-0400 Final Obs # Observation Date Value ABNL Reference Status Pe rforming Location 1 Magnesium 07/01/2011 11:53-0400 1.6 1.4-2.8 mg/dL Final
--- OUTSIDE RECORDS SUMMARY | 2023-06-18 04:01 | External Medical Summary ---
Author Name Unknown Organization K08:[facility] [address] [place] [address] Support Name Relationship Address Phone SHERIF MCBRIDE PROV Unknown Unavaila ble Laboratory Report Ordering Provider Test Date Status SHERIF MCBRIDE 07/01/2011 10:33-0400 Final Obs # Observation Date Value ABNL Reference Status Pe rforming Location 1 WBC 07/01/2011 10:58-0400 11.34 H 4.00-10.80 K/uL Final 2 RBC 07/01/2011 10:58-0400 4.63 3.85-5.15 M/uL Final 3 HGB 07/01/2011 10:58-0400 12.9 12.0-14.5 g/dL Final 4 HCT 07/01/2011 10:58-0400 40.0 36.0-44.5 % Final 5 MCV 07/01/2011 10:58-0400 86.4 81.5-97.5 fL Final 6 MCH 07/01/2011 10:58-0400 27.9 27.0-34.0 pg Final 7 MCHC 07/01/2011 10:58-0400 32.3 32.0-36.0 g/dL Final 8 RDW 07/01/2011 10:58-0400 14.0 11.5-15.5 % Final 9 PLT 07/01/2011 10:58-0400 303 140-400 K/uL Final 10 MPV 07/01/2011 10:58-0400 9.4 6.6-11.1 fL Final
--- OUTSIDE RECORDS SUMMARY | 2023-06-18 04:02 | External Medical Summary ---
Author Name Unknown Organization K01:[facility], [address] [address] Support Name Relationship Address Phone ALEX NARANJO MD PROV Unknown Unavailab le Laboratory Report Ordering Provider Test Date Status ALEX NARANJO MD 12/18/2010 11:05-0500 Final Obs # Observation Date Value ABNL Reference Status Pe rforming Location 1 Albumin, Urine 12/19/2010 03:24-0500 0.70 0-2 mg/dL Final 2 Creatinine, Random Urine 12/19/2010 03:24-0500 71 mg/dL Final 3 Microalbumin Ratio 12/19/2010 03:24-0500 10 <31 mg/g creat Final
--- OUTSIDE RECORDS SUMMARY | 2023-06-18 04:02 | External Medical Summary ---
Author Name Unknown Organization [employer] [facility] tem Support Name Relationship Address Phone Unavailable PROV Unknown Unavailable Laboratory Report Ordering Provider Test Date Status 06/08/2010 11:51-0400 F Obs # Observation Date Value ABNL Reference Status Pe rforming Location 1 [facility] Direct [facility] 06/08/2010 17:53-0400 76 0-100 mg/dL Final
--- OUTSIDE RECORDS SUMMARY | 2023-06-18 04:02 | External Medical Summary ---
Author Name Unknown Organization K01:[facility] [address] [address] Support Name Relationship Address Phone LICO THOMSON MD PROV Unknown Unavail able Laboratory Report Ordering Provider Test Date Status LICO THOMSON MD 12/18/2010 11:04-0500 Final Obs # Observation Date Value ABNL Reference Status Pe rforming Location 1 T4, Free 12/19/2010 01:34-0500 1.18 0.7-1.7 ng/dL Final
--- OUTSIDE RECORDS SUMMARY | 2023-06-18 04:02 | External Medical Summary ---
Author Name Unknown Organization K01:[facility], [address] [address] Support Name Relationship Address Phone LICO THOMSON MD PROV Unknown Unavail able Laboratory Report Ordering Provider Test Date Status LICO THOMSON MD 12/18/2010 11:04-0500 Final Obs # Observation Date Value ABNL Reference Status Pe rforming Location 1 LDL, Direct Measure 12/19/2010 00:29-0500 83 0-129 mg/dL Final
--- OUTSIDE RECORDS SUMMARY | 2023-06-18 04:02 | External Medical Summary ---
Author Name Unknown Organization K08:[facility] [address] [place] [address] Support Name Relationship Address Phone LICO THOMSON MD PROV Unknown Unavail able Laboratory Report Ordering Provider Test Date Status LICO THOMSON MD 12/18/2010 11:040500 Final Obs # Observation Date Value ABNL Reference Status Pe rforming Location 1 WBC 12/18/2010 12:55-0500 9.27 4.00-10.80 K/uL Final 2 RBC 12/18/2010 12:55-0500 4.76 3.85-5.15 M/uL Final 3 HGB 12/18/2010 12:55-0500 13.7 12.0-14.5 g/dL Final 4 HCT 12/18/2010 12:55-0500 41.7 36.0-44.5 % Final 5 MCV 12/18/2010 12:55-0500 87.6 81.5-97.5 fL Final 6 MCH 12/18/2010 12:55-0500 28.8 27.0-34.0 pg Final 7 MCHC 12/18/2010 12:55-0500 32.9 32.0-36.0 g/dL Final 8 RDW 12/18/2010 12:55-0500 12.7 11.5-15.5 % Final 9 PLT 12/18/2010 12:55-0500 291 140-400 K/uL Final 10 MPV 12/18/2010 12:55-0500 9.7 6.6-11.1 fL Final
--- OUTSIDE RECORDS SUMMARY | 2023-06-18 04:02 | External Medical Summary ---
Author Name Unknown Organization K01:[facility], [address] [facility] [address] Support Name Relationship Address Phone LICO THOMSON MD PROV Unknown Unavail able Laboratory Report Ordering Provider Test Date Status LICO THOMSON MD 12/18/2010 11:040500 Final Obs # Observation Date Value ABNL Reference Status Pe rforming Location 1 HOURS FASTING 12/20/19 11 00: 00 NOT PROVIDED hours Final 2 Triglyceride 12/20/19 11 00: 00 135 60-245 mg/dL Final 3 Cholesterol 12/20/19 11 00: 00 168 <200 mg/dL Final 4 HDL 12/20/19 11 00: 00 62 H 40-59 mg/dL Final 5 Cholesterol / HDL ratio 12/20/19 11 00: 00 2.7 Final 6 LDL (calculated) 12/20/19 11 00: 00 79 0-129 mg/dL Final 7 LDL (calculated) 12/20/19 11 00: 00 Final 8 LDL (calculated) 12/20/19 11 00: 00 LIPID PANEL REFERENCE RANGES (mg/dL) Final 9 LDL (calculated) 12/20/19 11 00: 00 Final 10 LDL (calculated) 12/20/19 11 00: 00 LDL CHOLESTEROL Final 11 LDL (calculated) 12/20/19 11 00: 00 <100 OPTIMAL GOAL FOR HIGH RISK PATIENTS Final 12 LDL (calculated) 12/20/19 11 00: 00 100-129 NEAR OR ABOVE NORMAL Final 13 LDL (calculated) 12/20/19 11 00:29- 00 130-159 BORDERLINE HIGH Final 14 LDL (calculated) 12/20/19 11 00:29-05 00 160-189 HIGH Final 15 LDL (calculated) 12/20/19 11 00:05 00 >189 VERY HIGH Final 16 LDL (calculated) 12/20/19 11 00:29-05 00 Final 17 LDL (calculated) 12/20/19 11 00:29-05 00 TOTAL CHOLESTEROL Final 18 LDL (calculated) 12/20/19 11 00:29-05 00 <200 DESIRABLE Final 19 LDL (calculated) 12/20/19 11 00:29-05 00 200-239 BORDERLINE HIGH Final 20 LDL (calculated) 12/20/19 11 00:29-05 00 >239 HIGH Final 21 LDL (calculated) 12/20/19 11 00:29-05 00 Final 22 LDL (calculated) 12/20/19 11 00:29-05 00 HDL [id number] Final 23 LDL (calculated) 12/20/19 11 00:29-05 00 <40 LOW Final 24 LDL (calculated) 12/20/19 11 00:29-05 00 40-59 NORMAL Final 25 LDL (calculated) 12/20/19 11 00:29-05 00 >59 HIGH Final
--- OUTSIDE RECORDS SUMMARY | 2023-06-18 04:02 | External Medical Summary ---
Author Name Unknown Organization K01:[facility], [address] [address] Support Name Relationship Address Phone ALEX NARANJO MD PROV Unknown Unavailab le Laboratory Report Ordering Provider Test Date Status ALEX NARANJO MD 12/18/2010 11:05-0500 Final Obs # Observation Date Value ABNL Reference Status Pe rforming Location 1 25-OH Vitamin D total (Calcidiol + Calciferol) 12/20/19 11 15:15-05 00 22.6 L 30.0-100.0 ng/mL Final 2 25-OH Vitamin D total (Calcidiol + Calciferol) 12/20/19 11 15:15-05 00 Final 3 25-OH Vitamin D total (Calcidiol + Calciferol) 12/20/19 11 15:15-05 00 Deficient: <20.0 ng/mL Final 4 25-OH Vitamin D total (Calcidiol + Calciferol) 12/20/19 11 15:15-05 00 Insufficient: 20.0-29.9 ng/ml Final 5 25-OH Vitamin D total (Calcidiol + Calciferol) 12/20/19 11 15:15-05 00 Sufficient: 30.0-100.0 ng/ml Final 6 25-OH Vitamin D total (Calcidiol + Calciferol) 12/20/19 11 15:15-05 00 High: >100.0 ng/ml Final 7 25-OH Vitamin D total (Calcidiol + Calciferol) 12/20/19 11 15:15-05 00 Final 8 25-OH Vitamin D total (Calcidiol + Calciferol) 12/20/19 11 15:15-05 00 Refer to [facility] Final 9 25-OH Vitamin D total (Calcidiol + Calciferol) 12/20/19 11 15:15-05 00 for Practitioners Best Practice Final 10 25-OH Vitamin D total (Calcidiol + Calciferol) 12/20/19 11 15:15-05 00 Guidelines for therapeutic Final 11 25-OH Vitamin D total (Calcidiol + Calciferol) 12/20/19 11 15:15-05 00 recommendations. Final
--- OUTSIDE RECORDS SUMMARY | 2023-06-18 04:02 | External Medical Summary ---
Author Name Unknown Organization K01:[facility], [address] [address] Support Name Relationship Address Phone LICO THOMSON MD PROV Unknown Unavail able Laboratory Report Ordering Provider Test Date Status LICO THOMSON MD 12/18/2010 11:04-0500 Final Obs # Observation Date Value ABNL Reference Status Pe rforming Location 1 TSH 12/19/2010 01:34-0500 0.57 0.27-4.2 uIU/mL Final
--- OUTSIDE RECORDS SUMMARY | 2023-06-18 04:02 | External Medical Summary ---
Author Name Unknown Organization [employer] [facility] tem Support Name Relationship Address Phone Unavailable PROV Unknown Unavailable Laboratory Report Ordering Provider Test Date Status 06/19/2010 12:58-0400 F Obs # Observation Date Value ABNL Reference Status Pe rforming Location 1 WBC # Bld 06/19/2010 14:060400 10.64 4.00-10.80 K/uL Final 2 RBC # d 06/19/2010 14:0400 4.75 3.85-5.15 M/uL Final 3 Hgb Bld-nc 06/19/2010 14:06-0400 14.4 12.0-14.5 g/dL Final 4 Hct Fr Bld 06/19/2010 14:0400 43.7 36.0-44.5 % Final 5 MCV RBC Qn 06/19/2010 14:060400 92.1 81.5-97.5 fL Final 6 MCH RBC Qn 06/19/2010 14:0400 30.4 27.0-34.0 pg Final 7 MCHC RBC-nc 06/19/2010 14:060400 33.0 32.0-36.0 g/dL Final 8 RDW RBC Qn 06/19/2010 14:0400 12.8 11.5-15.5 % Final 9 Platelet # Bld 06/19/2010 14:060400 292 150-400 K/uL Final 10 PMV Bld Qn 06/19/2010 14:06-0400 7.3 6.6-11.1 fL Final
--- OUTSIDE RECORDS SUMMARY | 2023-06-18 04:02 | External Medical Summary ---
Author Name Unknown Organization [employer] [facility] tem Support Name Relationship Address Phone Unavailable PROV Unknown Unavailable Laboratory Report Ordering Provider Test Date Status 06/19/2010 12:58-0400 F Obs # Observation Date Value ABNL Reference Status Pe rforming Location 1 Vit B12 Ser-mCnc 06/19/2010 21:34-0400 599 211-946 pg/mL Final
--- OUTSIDE RECORDS SUMMARY | 2023-06-18 04:02 | External Medical Summary ---
Author Name Unknown Organization [facility] tem Support Name Relationship Address Phone Unavailable PROV Unknown Unavailable Laboratory Report Ordering Provider Test Date Status 06/08/2010 11:51-0400 F Obs # Observation Date Value ABNL Reference Status Pe rforming Location 1 Hgb A1c Fr Bld 06/08/2010 18:08-0400 7.0 H 3.4-6.4 % Final 2 Mean Glucose Bld gHb Est-mCnc 06/08/2010 18:08-0400 154 H <126 MG/DL Final
--- OUTSIDE RECORDS SUMMARY | 2023-06-18 04:02 | External Medical Summary ---
Author Name Unknown Organization [employer] tem Support Name Relationship Address Phone Unavailable PROV Unknown Unavailable Laboratory Report Ordering Provider Test Date Status 06/19/2010 12:58-0400 F Obs # Observation Date Value ABNL Reference Status Pe rforming Location 1 BUN [facility] 06/19/2010 14:55-0400 13 6-20 mg/dL Final 2 Creat [facility] 06/19/2010 14:55-0400 0.9 0.7-1.5 mg/dL Final 3 Sodium [facility] 06/19/2010 14:55-0400 141 135-146 mmol/L Final 4 Potassium [facility] 06/19/2010 14:55-0400 3.8 3.5-5.1 mmol/L Final 5 Chloride [facility] 06/19/2010 14:55-0400 98 98-111 mmol/L Final 6 CO2 [facility] 06/19/2010 14:55-0400 33 H 22-32 mmol/L Final 7 Glucose [facility] 06/19/2010 14:55-0400 150 H 70-120 mg/dL Final 8 Anion Gap [facility] 06/19/2010 14:55-0400 10 7-15 mEq/L Final 9 Calcium [facility] 06/19/2010 14:55-0400 9.6 8.3-10.5 mg/dL Final 10 Pred GFR [facility] MDRD-vRate 06/19/2010 14:55-0400 >60.0 >60 mL/min Final
--- OUTSIDE RECORDS SUMMARY | 2023-06-18 04:02 | External Medical Summary ---
Author Name Unknown Organization K01:[facility], [address] [address] Support Name Relationship Address Phone LICO THOMSON MD PROV Unknown Unavail able Laboratory Report Ordering Provider Test Date Status LICO THOMSON MD 12/18/2010 11:040500 Final Obs # Observation Date Value ABNL Reference Status Pe rforming Location 1 BUN 12/19/2010 00:29-0500 10 6-20 mg/dL Final 2 Creatinine 12/19/2010 00:29-0500 0.8 0.7-1.5 mg/dL Final 3 Sodium 12/19/2010 00:29-0500 139 135-146 mmol/L Final 4 Potassium 12/19/2010 00:29-0500 4.1 3.5-5.1 mmol/L Final 5 Cl 12/19/2010 00:29-0500 99 98-111 mmol/L Final 6 CO2 12/19/2010 00:29-0500 34 H 22-32 mmol/L Final 7 Glucose 12/19/2010 00:29-0500 147 H 70-120 mg/dL Final 8 Anion gap 12/19/2010 00:29-0500 6 L 7-15 mEq/L Final 9 Calcium 12/19/2010 00:29-0500 9.4 8.3-10.5 mg/dL Final 10 GFR / 1.73 sq M.predicted 12/19/2010 00:29-0500 >60.0 >60 mL/min Final
--- OUTSIDE RECORDS SUMMARY | 2023-06-18 04:02 | External Medical Summary ---
Author Name Unknown Organization K01:[facility], [address] [address] Support Name Relationship Address Phone LICO THOMSON MD PROV Unknown Unavail able Laboratory Report Ordering Provider Test Date Status LICO THOMSON MD 12/18/2010 11:04-0500 Final Obs # Observation Date Value ABNL Reference Status Pe rforming Location 1 HbA1C 12/19/2010 03:45-0500 7.1 H 3.4-6.4 % Final 2 Glucose, estimated average 12/19/2010 03:45-0500 157 H <126 MG/DL Final
--- OUTSIDE RECORDS SUMMARY | 2023-06-18 04:02 | External Medical Summary ---
Author Name Unknown Organization [facility] [facility] tem Support Name Relationship Address Phone Unavailable PROV Unknown Unavailable Laboratory Report Ordering Provider Test Date Status 06/19/2010 12:58-0400 F Obs # Observation Date Value ABNL Reference Status Pe rforming Location 1 ESR Bld Qn 06/19/2010 14:31-0400 36 H 0-20 mm/hour Final
--- OUTSIDE RECORDS SUMMARY | 2023-06-18 04:02 | External Medical Summary ---
Author Name Unknown Organization [employer] [facility] tem Support Name Relationship Address Phone Unavailable PROV Unknown Unavailable Laboratory Report Ordering Provider Test Date Status 06/19/2010 12:58-0400 F Obs # Observation Date Value ABNL Reference Status Pe rforming Location 1 [facility] 06/19/2010 21:31-0400 0.42 0.27-4.2 uIU/mL Final
--- OUTSIDE RECORDS SUMMARY | 2023-06-18 04:02 | External Medical Summary ---
Author Name Unknown Organization [employer] tem Support Name Relationship Address Phone Unavailable PROV Unknown Unavailable Laboratory Report Ordering Provider Test Date Status 06/19/2010 12:58-0400 F Obs # Observation Date Value ABNL Reference Status Pe rforming Location 1 25OH VITAMIN D TOTAL 06/20/20 10 14:02-04 00 9.1 L 30.0-100.0 ng/mL Final 2 25OH VITAMIN D TOTAL 06/20/20 10 14:02-04 00 Final 3 25OH VITAMIN D TOTAL 06/20/20 10 14:02-04 00 Deficient: <20.0 ng/mL Final 4 25OH VITAMIN D TOTAL 06/20/20 10 14:02-04 00 Insufficient: 20.0-29.9 ng/ml Final 5 25OH VITAMIN D TOTAL 06/20/20 10 14:02-04 00 Sufficient: 30.0-100.0 ng/ml Final 6 25OH VITAMIN D TOTAL 06/20/20 10 14:02-04 00 High: >100.0 ng/ml Final 7 25OH VITAMIN D TOTAL 06/20/20 10 14:02-04 00 Final 8 25OH VITAMIN D TOTAL 06/20/20 10 14:02-04 00 Refer to [employer] Osteoporosis Final 9 25OH VITAMIN D TOTAL 06/20/20 10 14:02-04 00 for Practitioners Best Practice Final 10 25OH VITAMIN D TOTAL 06/20/20 10 14:02-04 00 Guidelines for therapeutic Final 11 25OH VITAMIN D TOTAL 06/20/20 10 14:02-04 00 recommendations. Final
--- OUTSIDE RECORDS SUMMARY | 2023-06-18 04:02 | External Medical Summary ---
Author Name Unknown Organization K01:[facility], [address] [address] Support Name Relationship Address Phone LICO THOMSON MD PROV Unknown Unavail able Laboratory Report Ordering Provider Test Date Status LICO THOMSON MD 12/18/2010 11:04-0500 Final Obs # Observation Date Value ABNL Reference Status Pe rforming Location 1 Magnesium 12/19/2010 00:29-0500 1.7 1.4-2.8 mg/dL Final
--- OUTSIDE RECORDS SUMMARY | 2023-06-18 04:02 | External Medical Summary ---
Author Name Unknown Organization K01:[facility], [address] [address] Support Name Relationship Address Phone LICO THOMSON MD PROV Unknown Unavail able Laboratory Report Ordering Provider Test Date Status LICO THOMSON MD 12/18/2010 11:04-0500 Final Obs # Observation Date Value ABNL Reference Status Pe rforming Location 1 Albumin, Serum 12/19/2010 00:29-0500 4.2 3.8-5.0 g/dL Final 2 AST (Aspartate aminotransferase) 12/19/2010 00:29-0500 17 10-35 U/L Final 3 Alk Phos 12/19/2010 00:29-0500 112 25-125 U/L Final 4 ALT (Alanine aminotransferase) 12/19/2010 00:29-0500 16 10-35 U/L Final 5 Bilirubin, Total 12/19/2010 00:29-0500 0.3 0.3-1.3 mg/dL Final 6 Bilirubin, Direct 12/19/2010 00:29-0500 0.1 0-0.3 mg/dL Final 7 Protein 12/19/2010 00:29-0500 6.9 6.0-8.3 g/dL Final
[2023-06-18] MEDS ORDERED: HYDROmorphone INJ 0.5 MG/0.5 ML SYR IV STA (04:41)
[2023-06-18] MEDS: ACETAMINOPHEN 325 MG TAB PO SCH ×4 (05:09→23:04)
[2023-06-18 06:40] LABS: Hematocrit (blood only) 33.7 % (37.0-47.0); Hemoglobin 10.4 g/dl (12.0-16.0); Mean Corpuscular Hemoglobin 28.9 pg (25.0-34.0); Mean Corpuscular Hgb Conc 30.9 g/dL (32.0-36.0); Mean Corpuscular Volume 93.6 fL (80.0-100.0); Mean Platelet Volume 10.2 fL (9.4-12.4); Platelet Count 222 K/uL (130-400); RDW Coefficient of Variation 13.9 % (11.5-14.5); RDW Standard Deviation 47.5 fL (36.4-46.3); White Blood Count 10.02 K/ul (4.8-10.8)
[2023-06-18] MEDS: Ipratropium HFA Inhaler (Combivent Respimat P&T Subs) INH SCH ×4 (07:11→19:17)
[2023-06-18] MEDS: Albuterol HFA 8 GM Inhaler (Combivent Respimat P&T Subs) INH SCH ×4 (07:12→19:17)
[2023-06-18 07:35] LABS: BUN Creatinine Ratio 25.9 (10-20); Creatinine Clr Calc Pharmacy 30.8 ml/min; Est GFR (African American) 32.5 ml/min; Magnesium 1.9 mg/dl (1.7-2.4); Phosphorus 3.5 mg/dl (2.5-4.9); Potassium 4.9 mmol/L (3.5-5.1)
[2023-06-18] MEDS: ENOXAPARIN INJ 40 MG/0.4 ML SYR SQ SCH ×2 (08:09→20:01)
[2023-06-18] MEDS: INSULIN ASPART PER UNIT CHARGE SC SCH ×4 (08:09→20:02)
[2023-06-18] MEDS: LIDOCAINE 5% 1 PATCH TD SCH (08:10)
[2023-06-18] MEDS: SERTRALINE HCL 50 MG TABLET PO SCH (08:11)
[2023-06-18] MEDS: METOPROLOL SUCC 25MG EXT REL TAB PO SCH (08:12)
[2023-06-18] MEDS: ATORVASTATIN 40 MG TAB PO SCH (08:12)
[2023-06-18] MEDS: PANTOprazole 40 MG TAB PO SCH (08:13)
[2023-06-18] MEDS: methIMAzole 5 MG TABLET PO SCH (08:13)
[2023-06-18] MEDS: SPIRONOLACTONE 12.5 MG TAB PO SCH (08:14)
[2023-06-18] MEDS: GABAPENTIN 100 MG CAP PO SCH ×3 (08:14→20:01)
[2023-06-18] MEDS: DICYCLOMINE HCL 20 MG TAB PO SCH (08:15)
[2023-06-18] MEDS: ISOSORBIDE DINITRATE 10 MG TAB PO SCH ×2 (08:15→11:52)
[2023-06-18] MEDS: ASPIRIN 81 MG ECTAB PO SCH (08:15)
[2023-06-18] MEDS: CHOLECALCIFEROL 1,000 UNITS 25 MCG TAB PO SCH (08:15)
[2023-06-18] MEDS: DORZOLAMIDE HCL 2% OPH SOLN 10 ML BTL OP SCH ×2 (08:16→20:01)
[2023-06-18] MEDS: UMECLIDINIUM BROMIDE 62.5MCG/BLISTER 7 PUFFS/INHALER INH SCH (08:16)
--- NOTE | 2023-06-18 12:30 | Cardiology Progress Note ---
Date of Service June 18, 2023 Assessment & Plan (1) Acute on chronic systolic (congestive) heart failure: (2) Chronic respiratory failure with hypoxia and hypercapnia: (3) Permanent atrial fibrillation: Plan Medically complex 82 year old female with chronic respiratory failure admitted for progressive shortness of breath and fluid retention. History of chronic HFrE, nonischemic cardiomyopathy. Resting echocardiography on June 12, 2023 was technically difficult, revealing a mildly dilated left ventricle with mild concentric LVH, moderate global hypokinesis, abnormal septal motion consistent with conduction abnormality, EF moderately reduced at 30 to 35%. Left atrium notably severely dilated. Aortic valve leaflets were mildly calcified with reduced opening, Doppler consistent with mild aortic stenosis though may be underestimated by current study. Mild mitral annular calcification noted along with mild to moderate mitral regurgitation, mild to moderate tricuspid regurgitation, RVSP 30 to 40 mmHg HFrEF Volume status: Mild hypovolemia IV furosemide discontinued on June 17, 2023 Hold diuretics today, likely resuming prior to arrival oral furosemide in the AM of June 19, 2023, 40 mg twice per day Hold supplemental potassium tonight Hypotension will not permit ACEI/ARB/Entresto, also listed as having questionable allergies to enalapril and valsartan. Permanent Atrial Fibrillation: Ventricular rates acceptably controlled on metoprolol 12.5 mg daily [id number] score of 5 (age 1, female, CHF, hypertension). No anticoagulation, status post watchman implantation in November 2019 Continue chronic oxygen supplementation, 2 L during day and 4 L at night. Recommend PT/OT evaluation today; order signed. Consider inpatient rehabilitation stay Admission and Anticipated Discharge Date Admission Date: June 12, 2023 Supervising Physician Co-Signing Physician Notes Supervising Physician Attestation: I have personally performed a history and physical examination on the patient. I agree with the physician physical therapy assistant instructor's findings and plan as documented with the following additions. Subjective: Respiratory status improved compared to arrival. Exam: Cardiovascular: Irregular rhythm, 1/6 systolic murmur, no edema Data: Sodium 139, potassium 4.9, chloride 97, CO2 41, BUN 43, creatinine 1.66 Assessment and Plan: Acute heart failure, moderate left ventricular systolic dysfunction Holding diuretics today. Resume furosemide if blood pressure and renal function allows tomorrow. Steven Jama, DO Subjective Patient seen and examined. Chart, medications, and telemetry reviewed. Complaints: Low back pain, knee pain. No chest pain. Breathing seems to be back to baseline. SPO2 92% on 2 L/min via NC. No tachypalpitations. No PND. Peripheral edema has improved. PureWick catheter utilized. No dizziness. No subjective fevers or chills. Telemetry: Atrial fibrillation with heart rates predominantly in the 80s and 90s Review of Systems Review of Systems: Complete review of systems is otherwise as stated above, negative, noncontributory Physical Exam Physical Exam: General: A&Ox3. NAD. HENT: Normocephalic. Atraumatic. Eyes: PER. Conjunctiva pink, sclera clear. Neck: No JVD. Heart: Irregularly irregular at 90 bpm. Systolic murmur heard in the outflow track. Apical systolic murmur. Lungs: Clear to auscultation. Abdomen: +BS. Soft. Nontender. No masses or organomegaly. Extremities: No clubbing, cyanosis, or significant edema. Limited neurological examination is without focal deficits. Results & Data Vital Signs (Past 12 Hours) Vital Signs Temp Pulse Pulse Resp BP Pulse Ox O2 Del Method 06/18/23 10:59 93 H 18 92 Nasal Cannula 06/18/23 10:57 36.9 C 89 20 99/62 L 90 Nasal Cannula 06/18/23 08:00 81 06/18/23 08:00 Nasal Cannula 06/18/23 07:20 37 C 81 18 93/63 L 94 Nasal Cannula 06/18/23 07:13 78 18 95 Nasal Cannula 06/18/23 03:19 36.7 C 84 18 113/76 92 Nasal Cannula O2 Flow Rate 06/18/23 10:59 2 06/18/23 10:57 4 06/18/23 08:00 06/18/23 08:00 2 06/18/23 07:20 2 06/18/23 07:13 2 06/18/23 03:19 2 Laboratory Results CBC 06/18/23 Range/Units 05:56 WBC 10.02 (4.8-10.8) K/ul RBC 3.60 L (4.20-5.40) M/uL Hgb 10.4 L (12.0-16.0) g/dl Hct 33.7 L (37.0-47.0) % Plt Count 222 (130-400) K/uL Comprehensive Metabolic Panel 06/18/23 Range/Units 05:56 Sodium 139 (136-145) mmol/L Potassium 4.9 (3.5-5.1) mmol/L Chloride 97 L (98-107) mmol/L Carbon Dioxide 41 H* (21-32) mmol/L BUN 43 H (6-23) mg/dl Creatinine 1.66 H (0.6-1.2) mg/dl Glucose 135 H (70-99(Fasting)) mg/dl Calcium 9.0 (8.6-10.3) mg/dl Intake and Output 06/17/23 06/18/23 06/18/23 22:59 06:59 14:59 Intake Total 250 / 730 Output Total 2049 Balance -150 / -1320 -500 / -1320 Intake: IV 250 / 250 Sodium Chloride 0.9% 500 ml @ 250 / 250 500 mls/hr IV .Q1H [facility] Rx#: [id number] Output: Urine Amount (Catheter) 2049 External 2049 Other: Weight 107.9 kg Weight Measurement Method Built in [facility]
[2023-06-18] MEDS: SUCRALFATE 1 GM TAB PO PRN (13:39)
--- NOTE | 2023-06-18 15:29 | Hospitalist Progress Note ---
Date of Service June 18, 2023 Assessment & Plan (1) Acute on chronic systolic (congestive) heart failure: Plan: per previous hospitalist notes with addendum: 82-year-old female with past medical history significant for type 2 diabetes chronic hypoxemic respiratory failure on home oxygen, hyperlipidemia, subclinical hyperthyroidism, asthma, COPD, allergic rhinitis, sleep apnea, chronic systolic CHF, pulmonary hypertension, hypertension, paroxysmal atrial fi brillation s/p Watchman device placement, irritable bowel syndrome with constipation, morbid obesity, GERD, gastroparesis, history of ischemic colitis, chronic kidney stage III, UTI with ESBL, generalized osteoarthritis, history of elevated plasma metanephrines, general generalized anxiety disorder, depression presents with shortness of breath and found to have acute on chronic systolic CHF. Acute on chronic systolic CHF EF 40 to 45% on echo done in November 2022. And also severe mitral regurgitation. TTE on 06/12/23 showed worsened EF 30-35, severely dil LA,mild to mod MR, mild to mod TR, RVSP 30-40, mod global hypokinesis of LV given IV lasix 40mg BID crea 1.6 --> 1.6 Lasix held, repeat BMP tomorrow hopefully can resume Lasix PO tomorrow Cardiology SVC on board Chronic hypoxic respiratory failure on home oxygen History of asthma and COPD and sleep apnea Reports she uses 2L of oxygen during daytime and 4L at nighttime Continue home inhalers and oxygen - at baseline O2 supplement Type 2 diabetes Hold home p.o. medications Insulin sliding scale HbA1c is 6.8 Atrial fibrillation s/p Watchman device placement Continue home metoprolol History of subclinical hyperthyroidism Continue home methimazole. TSH is 3.679 GERD on Protonix Chronic kidney stage III Presented with creatinine 1.24 Cr is 1.62 repeat BMP tomorrow Reports low back pain Continue lidocaine patch Continue gabapentin Continue scheduled tylenol. DVT prophylaxis Lovenox. Disposition telemetry. Full code Admission and Anticipated Discharge Date Admission Date: June 12, 2023 Subjective ff up for acute CHF etc seen resting in chair, comfortable on 2 L NC, her baseline states she feels fine overall breathing is improving no cough, fever/chills, chest pain no other symptoms Review of Systems Review of Systems: all noted and negative except for above Physical Exam Physical Exam: General- oriented x 3, not in distress, speaks in sentences with no effort or accessory muscle use Eyes- anicteric Neck- no JVD Lungs- clear breath sounds bilaterally, no crackles/wheezing Heart- normal rate, regular rhythm; no murmurs Abdomen- normal bowel sounds, nondistended, soft, nontender Extremities- no pretibial edema, no calf tenderness Neuro- alert, oriented x 3; no gross focal neurologic deficits Skin- warm & dry Results & Data Results & Data Vital Signs (Past 12 Hours) Vital Signs Temp Pulse Pulse Resp BP Pulse Ox O2 Del Method 06/18/23 10:59 93 H 18 92 Nasal Cannula 06/18/23 10:57 36.9 C 89 20 99/62 L 90 Nasal Cannula 06/18/23 08:00 81 06/18/23 08:00 Nasal Cannula 06/18/23 07:20 37 C 81 18 93/63 L 94 Nasal Cannula 06/18/23 07:13 78 18 95 Nasal Cannula O2 Flow Rate 06/18/23 10:59 2 06/18/23 10:57 4 06/18/23 08:00 06/18/23 08:00 2 06/18/23 07:20 2 06/18/23 07:13 2 all noted and reviewed including below
[2023-06-18] MEDS: BIMATOPROST 0.01% OP SOLN 2.5 ML BTL OP SCH (20:01)
[2023-06-18] MEDS: FERROUS SULFATE 325 MG TAB PO SCH (20:01)
--- OUTSIDE RECORDS SUMMARY | 2023-06-18 20:45 | External Medical Summary | Summary of Care ---
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 Name Role Phone Marcela Pinto MD Primary Care Provider [phone] Encounter Details Date Type Department Care Team Description 10/20/2018 Telephone General Internal Medicine [facility] [address] [place] [address] Marcela Pinto MD [address] [facility] [place] [address] [phone] Allergies Active Allergy Reactions Severity Noted Date Comments Valsartan 07/10/2010 Enalapril 05/21/2006 Escitalopram Oxalate Nausea/vomiting 10/11/2009 Nauseated Iodinated Diagnostic Agents Nausea/vomiting 05/2010 IV Contrast Lisinopril 05/21/2006 Metoprolol Tartrate 11/18/2006 Made pulse low [place] Oil-Black Currant-Vit E 07/10/2010 Verapamil 03/21/2004 [...] Active DilTIAZem HCl ER Beads 360 MG [id number], goal below 130/80 TAKE 1 CAPSULE EVERY [...] Hypoxemia 10/08/2011 10/30/2015 Genetic Sleep Disorder Research Other*[id number] 07/25/2011 05/15/2016 Obesity, morbid (more than 1 [...] of the swelling * Telephone Encounter - Riccardo Renetta Youssef, NICOL - 10/20/2018 6:04 PM EST Called, [...] Office Visit Gastroenterology Courtney Sprague CRNP [address] [address] [phone] 12/21/2018 Nutrition Services Gastroenterology Nita Enriquez, RDN [address] [id number] 02/04/2019 Office Visit Internal Medicine [facility] Pinto MD [address] [facility] [address] [phone] 06/01/2019 Imaging Radiology Health Maintenance Due Date [...] For more information, please contact: [address] [place] [id number]
[2023-06-19] MEDS: oxyCODONE HCL IR 5 MG TAB (IMMEDIATE RELEASE) PO PRN ×4 (01:12→20:44)
[2023-06-19] MEDS: ACETAMINOPHEN 325 MG TAB PO SCH ×3 (05:16→17:09)
[2023-06-19] MEDS: Ipratropium HFA Inhaler (Combivent Respimat P&T Subs) INH SCH ×4 (06:56→19:51)
[2023-06-19] MEDS: Albuterol HFA 8 GM Inhaler (Combivent Respimat P&T Subs) INH SCH ×4 (06:56→19:50)
[2023-06-19] MEDS: methIMAzole 5 MG TABLET PO SCH (07:40)
[2023-06-19] MEDS: GABAPENTIN 100 MG CAP PO SCH ×3 (07:42→20:32)
[2023-06-19] MEDS: PANTOprazole 40 MG TAB PO SCH (07:42)
[2023-06-19] MEDS: ASPIRIN 81 MG ECTAB PO SCH (07:43)
[2023-06-19] MEDS: CHOLECALCIFEROL 1,000 UNITS 25 MCG TAB PO SCH (07:43)
[2023-06-19] MEDS: SUCRALFATE 1 GM TAB PO PRN (07:43)
[2023-06-19] MEDS: DICYCLOMINE HCL 20 MG TAB PO SCH (07:45)
[2023-06-19] MEDS: SERTRALINE HCL 50 MG TABLET PO SCH (07:46)
[2023-06-19] MEDS: ATORVASTATIN 40 MG TAB PO SCH (07:47)
[2023-06-19] MEDS: ISOSORBIDE DINITRATE 10 MG TAB PO SCH ×2 (07:49→12:11)
[2023-06-19] MEDS: DORZOLAMIDE HCL 2% OPH SOLN 10 ML BTL OP SCH ×2 (07:50→20:33)
[2023-06-19] MEDS: ENOXAPARIN INJ 40 MG/0.4 ML SYR SQ SCH (07:51)
[2023-06-19] MEDS: METOPROLOL SUCC 25MG EXT REL TAB PO SCH (07:52)
[2023-06-19] MEDS: UMECLIDINIUM BROMIDE 62.5MCG/BLISTER 7 PUFFS/INHALER INH SCH (07:54)
[2023-06-19] MEDS: INSULIN ASPART PER UNIT CHARGE SC SCH ×4 (08:17→20:35)
[2023-06-19 09:52] LABS: Calcium 9.3 mg/dl (8.6-10.3); Creatinine Clr Calc Pharmacy 27.6 ml/min; Est GFR (African American) 28.3 ml/min; Est GFR (Non-African American) 24.4 ml/min; Potassium 5.3 mmol/L (3.5-5.1)
--- NOTE | 2023-06-19 10:29 | Cardiology Progress Note ---
Date of Service June 19, 2023 Assessment & Plan (1) Acute on chronic systolic (congestive) heart failure: (2) Chronic respiratory failure with hypoxia and hypercapnia: (3) Permanent atrial fibrillation: Plan Medically complex 82 year old female with chronic respiratory failure admitted for progressive shortness of breath and fluid retention. History of chronic HFrE, nonischemic cardiomyopathy. Resting echocardiography on June 12, 2023 was technically difficult, revealing a mildly dilated left ventricle with mild concentric LVH, moderate global hypokinesis, abnormal septal motion consistent with conduction abnormality, EF moderately reduced at 30 to 35%. Left atrium notably severely dilated. Aortic valve leaflets were mildly calcified with reduced opening, Doppler consistent with mild aortic stenosis though may be underestimated by current study. Mild mitral annular calcification noted along with mild to moderate mitral regurgitation, mild to moderate tricuspid regurgitation, RVSP 30 to 40 mmHg Patient initially diuresed with IV Furosemide, now with acute on chronic renal dysfunction and mild hyperkalemia IV furosemide discontinued on June 17, 2023 Patient with permanent atrial fibrillation, ventricular rates acceptably controlled on metoprolol 12.5 mg daily. [id number] score of 5 (age 1, female, CHF, hypertension). No anticoagulation, status post watchman implantation in November 2019 Recommendations: 1. Continue to hold diuretics, holding off on initiation of oral furosemide, holding potassium chloride and spironolactone due to hyperkalemia and renal dysfunction. 2. Increased free water intake 3. Reassess labs in AM 4. Increase activity as tolerated. 5. Hypotension will not permit ACEI/ARB/Entresto, also listed as having questionable allergies to enalapril and valsartan. 6. Continue chronic oxygen supplementation 7. Patient wishes to return to her home in [place] where she lives alone (daughter next door) Admission and Anticipated Discharge Date Admission Date: June 12, 2023 Supervising Physician Co-Signing Physician Notes Supervising Physician Attestation: I have personally performed a history and physical examination on the patient. I agree with the physician research study assistant's findings and plan as documented with the following additions. Subjective: Respiratory status improved compared to arrival. Exam: Cardiovascular: Irregular rhythm, 1/6 systolic murmur, no edema Data: Potassium 5.3. Assessment and Plan: Acute heart failure, moderate left ventricular systolic dysfunction -Diuretics on hold. Spironolactone and potassium chloride on hold. Potassium mildly elevated. Liberalize p.o. fluid intake. Proceed with potassium binder Veltassa x 1 dose. Steven Jama, Subjective Patient seen and examined. Chart, medications, and telemetry reviewed. Breathing today is the same as yesterday, certainly better than when she came in though still short of breath with activities such as ambulating to the bathroom. Only other complaints are chronic low back pain and knee pain Limited free water intake noted Creatinine yesterday was 1.66 mg/dl and today was 1.86 mg/dl. Mild hyperkalemia noted this AM with a potassium of 5.3 mmol/liter despite holding supplemental potassium. Patient did receive a dose of spironolactone (12.5 mg) yesterday morning before I could place the medication on hold No chest pain. No tachypalpitations. No PND. No peripheral edema. No dizziness. No subjective fevers or chills. Telemetry: Atrial fibrillation with a controlled ventricular response, currently in the 70s Review of Systems Review of Systems: Complete review of systems is otherwise as stated above, negative, noncontributory Physical Exam Physical Exam: General: A&Ox3. NAD. HENT: Normocephalic. Atraumatic. Eyes: PER. Conjunctiva pink, sclera clear. Neck: No JVD. Heart: Irregularly irregular at 80 bpm. Systolic murmur heard in the outflow track. Apical systolic murmur. Lungs: Diminished/decreased at the bases. + Rales. No wheeze. Abdomen: +BS. Soft. Nontender. No masses or organomegaly. Extremities: No clubbing, cyanosis, or significant edema. Limited neurological examination is without focal deficits. Results & Data Vital Signs (Past 12 Hours) Vital Signs Temp Pulse Pulse Resp BP Pulse Ox O2 Del Method 06/19/23 07:20 36.3 C L 81 19 104/72 95 Nasal Cannula 06/19/23 06:57 77 18 97 Nasal Cannula 06/19/23 06:32 94 Nasal Cannula 06/19/23 03:44 36.6 C 90 18 99/68 L 90 Nasal Cannula 06/18/23 23:39 90 06/18/23 23:02 36.8 C 82 16 99/65 L 91 Nasal Cannula O2 Flow Rate 06/19/23 07:20 3 06/19/23 06:57 3 06/19/23 06:32 2 06/19/23 03:44 06/18/23 23:39 06/18/23 23:02 2 Laboratory Results Comprehensive Metabolic Panel 06/19/23 Range/Units 08:38 Sodium 136 (136-145) mmol/L Potassium 5.3 H (3.5-5.1) mmol/L Chloride 95 L (98-107) mmol/L Carbon Dioxide 41 H* (21-32) mmol/L BUN 54 H (6-23) mg/dl Creatinine 1.86 H (0.6-1.2) mg/dl Glucose 170 H (70-99(Fasting)) mg/dl Calcium 9.3 (8.6-10.3) mg/dl Intake and Output 06/18/23 06/19/23 06/19/23 22:59 06:59 14:59 Intake Total 250 / 1030 300 / 1030 Output Total 700 / 1176 201 / 201 Balance 250 / -146 -400 / -146 -201 / -201 Intake: Oral 250 / 1030 300 / 1030 Output: Urine 700 / 700 200 / 200 # Bowel Movements Other: Weight 108.9 kg Weight Measurement Method Built in [facility]
[2023-06-19] MEDS: LIDOCAINE 5% 1 PATCH TD SCH (11:11)
[2023-06-19] MEDS: HEPARIN SOD 5,000 UNIT/0.5 ML VIAL SC SCH ×2 (12:09→20:33)
[2023-06-19] MEDS ORDERED: PATIROMER CALCIUM SORBITEX 8.4 GM PACK PO ONE (18:35)
--- NOTE | 2023-06-19 18:50 | Hospitalist Progress Note ---
Date of Service June 19, 2023 Assessment & Plan (1) Acute on chronic systolic (congestive) heart failure: Plan: per previous hospitalist notes with addendum: 82-year-old female with past medical history significant for type 2 diabetes chronic hypoxemic respiratory failure on home oxygen, hyperlipidemia, subclinical hyperthyroidism, asthma, COPD, allergic rhinitis, sleep apnea, chronic systolic CHF, pulmonary hypertension, hypertension, paroxysmal atrial fi brillation s/p Watchman device placement, irritable bowel syndrome with constipation, morbid obesity, GERD, gastroparesis, history of ischemic colitis, chronic kidney stage III, UTI with ESBL, generalized osteoarthritis, history of elevated plasma metanephrines, general generalized anxiety disorder, depression presents with shortness of breath and found to have acute on chronic systolic CHF. Acute on chronic systolic CHF EF 40 to 45% on echo done in November 2022. And also severe mitral regurgitation. TTE on 06/12/23 showed worsened EF 30-35, severely dil LA,mild to mod MR, mild to mod TR, RVSP 30-40, mod global hypokinesis of LV given IV lasix 40mg BID crea 1.6 --> 1.6 --> 1.8 Lasix held, repeat BMP tomorrow hopefully can resume Lasix PO tomorrow Cardiology SVC on board Chronic hypoxic respiratory failure on home oxygen History of asthma and COPD and sleep apnea Reports she uses 2L of oxygen during daytime and 4L at nighttime Continue home inhalers and oxygen - at baseline O2 supplement Type 2 diabetes Hold home p.o. medications Insulin sliding scale HbA1c is 6.8 Atrial fibrillation s/p Watchman device placement Continue home metoprolol History of subclinical hyperthyroidism Continue home methimazole. TSH is 3.679 GERD on Protonix Chronic kidney stage III Presented with creatinine 1.24 Cr is 1.62 repeat BMP tomorrow Reports low back pain Continue lidocaine patch Continue gabapentin Continue scheduled tylenol. DVT prophylaxis Lovenox. Disposition telemetry. Full code Admission and Anticipated Discharge Date Admission Date: June 12, 2023 Subjective ff up for CHF, etc seen resting in chair, comfortable states she feels ok overall breathing improving than on admission no leg pain no chest pain, dyspnea, palpitations, dizziness no other symptoms Review of Systems Review of Systems: all noted and negative except for above Physical Exam Physical Exam: General- oriented x 3, not in distress, speaks in sentences with no effort or accessory muscle use Eyes- anicteric Neck- no JVD Lungs- clear BS bilaterally, no crackles/wheezing Heart- normal rate, regular rhythm; no murmurs Abdomen- normal bowel sounds, nondistended, soft, nontender Extremities- no pretibial edema, no calf tenderness Neuro- alert, oriented x 3; no gross focal neurologic deficits Skin- warm & dry Results & Data Results & Data Vital Signs (Past 12 Hours) Vital Signs Temp Pulse Pulse Resp BP BP Pulse Ox 06/19/23 16:09 36.4 C L 74 20 111/73 96 06/19/23 15:35 82 06/19/23 15:20 74 18 94 06/19/23 14:14 06/19/23 08:00 78 06/19/23 12:39 06/19/23 10:55 36.6 C 80 21 97/54 L 97 06/19/23 11:41 84 18 96 06/19/23 11:11 94 06/19/23 07:20 36.3 C L 81 19 104/72 95 06/19/23 06:57 77 18 97 Pulse Ox O2 Del Method O2 Flow Rate O2 Flow Rate 06/19/23 16:09 Nasal Cannula 4 06/19/23 15:35 06/19/23 15:20 Nasal Cannula 3 06/19/23 14:14 87 L 2 06/19/23 08:00 06/19/23 12:39 Nasal Cannula 2 06/19/23 10:55 Nasal Cannula 4 06/19/23 11:41 Nasal Cannula 4 06/19/23 11:11 06/19/23 07:20 Nasal Cannula 3 06/19/23 06:57 Nasal Cannula 3 all noted and reviewed including below
[2023-06-19] MEDS: FERROUS SULFATE 325 MG TAB PO SCH (20:33)
[2023-06-19] MEDS: BIMATOPROST 0.01% OP SOLN 2.5 ML BTL OP SCH (20:34)
[2023-06-20] MEDS: oxyCODONE HCL IR 5 MG TAB (IMMEDIATE RELEASE) PO PRN ×4 (00:51→21:48)
[2023-06-20] MEDS: ACETAMINOPHEN 325 MG TAB PO SCH ×5 (00:51→23:11)
[2023-06-20] MEDS: ISOSORBIDE DINITRATE 10 MG TAB PO SCH ×2 (05:19→12:01)
[2023-06-20] MEDS: Albuterol HFA 8 GM Inhaler (Combivent Respimat P&T Subs) INH SCH ×4 (07:15→19:39)
[2023-06-20] MEDS: Ipratropium HFA Inhaler (Combivent Respimat P&T Subs) INH SCH ×4 (07:15→19:39)
[2023-06-20 07:41] LABS: BUN Creatinine Ratio 34.3 (10-20); Calcium 9.3 mg/dl (8.6-10.3); Creatinine Clr Calc Pharmacy 35.9 ml/min; Est GFR (African American) 38.9 ml/min; Est GFR (Non-African American) 33.5 ml/min; Potassium 4.6 mmol/L (3.5-5.1)
[2023-06-20] MEDS: DORZOLAMIDE HCL 2% OPH SOLN 10 ML BTL OP SCH ×2 (08:35→19:59)
[2023-06-20] MEDS: METOPROLOL SUCC 25MG EXT REL TAB PO SCH (08:36)
[2023-06-20] MEDS: SUCRALFATE 1 GM TAB PO PRN (08:36)
[2023-06-20] MEDS: SERTRALINE HCL 50 MG TABLET PO SCH (08:36)
[2023-06-20] MEDS: LIDOCAINE 5% 1 PATCH TD SCH (08:36)
[2023-06-20] MEDS: PANTOprazole 40 MG TAB PO SCH (08:36)
[2023-06-20] MEDS: ATORVASTATIN 40 MG TAB PO SCH (08:37)
[2023-06-20] MEDS: GABAPENTIN 100 MG CAP PO SCH ×3 (08:37→19:59)
[2023-06-20] MEDS: INSULIN ASPART PER UNIT CHARGE SC SCH ×4 (08:37→20:00)
[2023-06-20] MEDS: ASPIRIN 81 MG ECTAB PO SCH (08:37)
[2023-06-20] MEDS: methIMAzole 5 MG TABLET PO SCH (08:37)
[2023-06-20] MEDS: CHOLECALCIFEROL 1,000 UNITS 25 MCG TAB PO SCH (08:37)
[2023-06-20] MEDS: DICYCLOMINE HCL 20 MG TAB PO SCH (08:37)
[2023-06-20] MEDS: HEPARIN SOD 5,000 UNIT/0.5 ML VIAL SC SCH ×2 (08:39→20:00)
[2023-06-20] MEDS: UMECLIDINIUM BROMIDE 62.5MCG/BLISTER 7 PUFFS/INHALER INH SCH (08:42)
--- NOTE | 2023-06-20 10:17 | Cardiology Progress Note ---
Date of Service June 20, 2023 Assessment & Plan (1) Acute on chronic systolic (congestive) heart failure: (2) Chronic respiratory failure with hypoxia and hypercapnia: (3) Permanent atrial fibrillation: Plan Medically complex 82 year old female with chronic respiratory failure admitted for progressive shortness of breath and fluid retention. History of chronic HFrE, nonischemic cardiomyopathy. Resting echocardiography on June 12, 2023 was technically difficult, revealing a mildly dilated left ventricle with mild concentric LVH, moderate global hypokinesis, abnormal septal motion consistent with conduction abnormality, EF moderately reduced at 30 to 35%. Left atrium notably severely dilated. Aortic valve leaflets were mildly calcified with reduced opening, Doppler consistent with mild aortic stenosis though may be underestimated by current study. Mild mitral annular calcification noted along with mild to moderate mitral regurgitation, mild to moderate tricuspid regurgitation, RVSP 30 to 40 mmHg Patient initially diuresed with IV Furosemide, discontinued on June 17, 2023 due to acute renal dysfunction Patient with permanent atrial fibrillation, ventricular rates acceptably controlled on metoprolol 12.5 mg daily. [id number] score of 5 (age 1, female, CHF, hypertension). No anticoagulation, status post watchman implantation in November 2019 Recommendations: 1. Resume oral furosemide at 40 mg twice per day 2. Continue to hold spironolactone (12.5 mg on MWF) for now 3. Continue to hold potassium chloride (20 mEq QHS) for now 4. Continue beta-jonathan therapy, aspirin, and statin as presently prescribed 5. Hypotension will not permit ACEI/ARB/Entresto, also listed as having questionable allergies to enalapril and valsartan. 6. Continue chronic oxygen supplementation 7. Increase activity as tolerated Admission and Anticipated Discharge Date Admission Date: June 12, 2023 Supervising Physician Co-Signing Physician Notes Supervising Physician Attestation: I have personally performed a history and physical examination on the patient. I agree with the physician reproductive healthcare assistant's findings and plan as documented with the following additions. Subjective: Patient still notes subjective shortness of breath with activity such as walking to the bathroom. Is felt however that this is not too much different from her baseline and she is chronically debilitated, with multiple baseline musculoskeletal complaints including chronic low back pain. Exam: Cardiovascular: Irregular rhythm, 1/6 systolic murmur, no edema Data: Potassium improved from 5.3 on 06/19/2020 3 to 4.6 mmol/L 06/20/2023 having received a dose of Velt[place] Assessment and Plan: As noted above Steven Jama, Subjective Patient seen and examined. Chart, medications, and telemetry reviewed. Breathing is okay, unchanged, describing dyspnea when walking to and from the bathroom. Main complaint is chronic knee pain, and low back pain. No chest pain. No palpitations. No PND. No peripheral edema. Metabolic panel improved this morning, creatinine down to 1.43, potassium down to 4.6 Telemetry: Atrial fibrillation with a controlled ventricular response, heart rates predominantly in the 70s and 80s Review of Systems Review of Systems: Complete review of systems is otherwise as stated above, negative, noncontributory Physical Exam Physical Exam: General: A&Ox3. NAD. HENT: Normocephalic. Atraumatic. Eyes: PER. Conjunctiva pink, sclera clear. Neck: No JVD. Heart: Irregularly irregular at 80 bpm. Systolic murmur heard in the outflow track. Apical systolic murmur. Lungs: Diminished/decreased at the bases. + Rales. No wheeze. Abdomen: +BS. Soft. Nontender. No masses or organomegaly. Extremities: Trivial edema. No clubbing. No cyanosis. Limited neurological examination is without focal deficits. Results & Data Vital Signs (Past 12 Hours) Vital Signs Temp Pulse Resp BP Pulse Ox O2 Del Method O2 Flow Rate 06/20/23 07:58 36.8 C 87 20 105/69 94 Room Air 06/20/23 07:52 Nasal Cannula 4 06/20/23 07:16 82 16 95 Nasal Cannula 3 06/20/23 03:35 36.6 C 96 H 20 109/67 99 Nasal Cannula 4 06/19/23 22:57 36.7 C 82 20 110/72 96 Nasal Cannula 4 06/19/23 22:51 Nasal Cannula 4 Laboratory Results Comprehensive Metabolic Panel 06/20/23 Range/Units 07:06 Sodium 137 (136-145) mmol/L Potassium 4.6 (3.5-5.1) mmol/L Chloride 97 L (98-107) mmol/L Carbon Dioxide 39 H (21-32) mmol/L BUN 49 H (6-23) mg/dl Creatinine 1.43 H D (0.6-1.2) mg/dl Glucose 143 H (70-99(Fasting)) mg/dl Calcium 9.3 (8.6-10.3) mg/dl Intake and Output 06/19/23 06/20/23 06/20/23 22:59 06:59 14:59 Intake Total 1224 Output Total 750 / 1476 425 / 1476 Balance 475 / 529 -325 / 529 Intake: Oral 1224 Output: Urine 750 / 1475 425 / 1475 Other: Weight 108.9 kg 108.4 kg Weight Measurement Method Built in [facility]
[2023-06-20] MEDS ORDERED: XOPENEX/ATROVENT 1.25mg/0.5MG NEB COMBO NEB STA (15:00)
[2023-06-20] MEDS ORDERED: IPRATROPIUM BROMIDE NEB SOLN 0.02% 2.5 ML VIAL INH STA (15:02)
[2023-06-20] MEDS ORDERED: LEVALBUTEROL 1.25 MG/3 ML NEB NEB STA (15:03)
--- NOTE | 2023-06-20 15:31 | XRay Report ---
XR chest 1V portable CLINICAL HISTORY: CHF TECHNIQUE: Single frontal radiograph of the chest was obtained. Comparison: Comparison is made to chest radiograph 06/11/2023 FINDINGS: No lines and tubes are seen. Cardiomegaly is noted. The lungs are clear. No evidence of pleural effus ion or pneumothorax. IMPRESSION: No acute chest disease. Cardiomegaly is noted. Previously noted pulmonary vascular congestion has imp roved. ACT 112: Negative or not required by law. Electronically signed by: Jose Carlos Duckworth M.D. 06/20/2023 3:29 PM
[2023-06-20] MEDS: FUROSEMIDE 40 MG TAB PO SCH (17:29)
--- NOTE | 2023-06-20 18:02 | Hospitalist Progress Note ---
Date of Service June 20, 2023 Assessment & Plan (1) Acute on chronic systolic (congestive) heart failure: Plan: per previous hospitalist notes with addendum: 82-year-old female with past medical history significant for type 2 diabetes chronic hypoxemic respiratory failure on home oxygen, hyperlipidemia, subclinical hyperthyroidism, asthma, COPD, allergic rhinitis, sleep apnea, chronic systolic CHF, pulmonary hypertension, hypertension, paroxysmal atrial fi brillation s/p Watchman device placement, irritable bowel syndrome with constipation, morbid obesity, GERD, gastroparesis, history of ischemic colitis, chronic kidney stage III, UTI with ESBL, generalized osteoarthritis, history of elevated plasma metanephrines, general generalized anxiety disorder, depression presents with shortness of breath and found to have acute on chronic systolic CHF. Acute on chronic systolic CHF EF 40 to 45% on echo done in November 2022. And also severe mitral regurgitation. TTE on 06/12/23 showed worsened EF 30-35, severely dil LA,mild to mod MR, mild to mod TR, RVSP 30-40, mod global hypokinesis of LV given IV lasix 40mg BID crea 1.6 --> 1.6 --> 1.8--> 1.4 Lasix resumed today, 40 mg p.o. twice daily Chest x-ray: No pleural effusion or pneumonia Nebs ordered Continue to monitor closely Cardiology SVC on board Chronic hypoxic respiratory failure on home oxygen History of asthma and COPD and sleep apnea Reports she uses 2L of oxygen during daytime and 4L at nighttime Continue home inhalers and oxygen - at baseline O2 supplement Type 2 diabetes Hold home p.o. medications Insulin sliding scale HbA1c is 6.8 Atrial fibrillation s/p Watchman device placement Continue home metoprolol History of subclinical hyperthyroidism Continue home methimazole. TSH is 3.679 GERD on Protonix Chronic kidney stage III Presented with creatinine 1.24 Cr is 1.62 repeat BMP tomorrow Reports low back pain Continue lidocaine patch Continue gabapentin Continue scheduled tylenol. DVT prophylaxis Lovenox. Disposition telemetry. Full code Admission and Anticipated Discharge Date Admission Date: June 12, 2023 Subjective ff up for acute chf, etc Seen resting in bed, on 2 L of oxygen States she feels somewhat short of breath after walking No chest pain No other new symptom Review of Systems Review of Systems: all noted and negative except for above Physical Exam Physical Exam: General- oriented x 3, not in distress, speaks in sentences with no effort or accessory muscle use Eyes- anicteric Neck- no JVD Lungs- clear breath sounds bilaterally, no rales/wheezes Heart- normal rate, regular rhythm; no murmurs Abdomen- normal bowel sounds, nondistended, soft, nontender Extremities- mild pretibial edema, no calf tenderness Neuro- alert, oriented x 3; no gross focal neurologic deficits Skin- warm & dry Results & Data Results & Data Vital Signs (Past 12 Hours) Vital Signs Temp Pulse Pulse Pulse Resp BP Pulse Ox 06/20/23 15:46 83 14 92 06/20/23 15:27 83 111/72 06/20/23 15:22 73 18 96 06/20/23 15:21 87 06/20/23 15:16 36.8 C 87 24 168/131 H 96 06/20/23 11:46 36.5 C 89 20 110/79 97 06/20/23 10:54 87 18 98 06/20/23 07:58 36.8 C 87 20 105/69 94 06/20/23 07:52 06/20/23 07:16 82 16 95 O2 Del Method O2 Flow Rate 06/20/23 15:46 Nasal Cannula 3 06/20/23 15:27 06/20/23 15:22 Nasal Cannula 2 06/20/23 15:21 06/20/23 15:16 Nasal Cannula 2 06/20/23 11:46 Room Air 06/20/23 10:54 Nasal Cannula 4 06/20/23 07:58 Room Air 06/20/23 07:52 Nasal Cannula 4 06/20/23 07:16 Nasal Cannula 3 all noted and reviewed including below
[2023-06-20] MEDS: BIMATOPROST 0.01% OP SOLN 2.5 ML BTL OP SCH (19:59)
[2023-06-20] MEDS: FERROUS SULFATE 325 MG TAB PO SCH (19:59)
[2023-06-21] MEDS: oxyCODONE HCL IR 5 MG TAB (IMMEDIATE RELEASE) PO PRN ×4 (02:17→21:12)
[2023-06-21] MEDS: ISOSORBIDE DINITRATE 10 MG TAB PO SCH ×2 (05:31→11:53)
[2023-06-21] MEDS: ACETAMINOPHEN 325 MG TAB PO SCH ×3 (05:31→17:22)
[2023-06-21] MEDS: Albuterol HFA 8 GM Inhaler (Combivent Respimat P&T Subs) INH SCH ×4 (07:06→18:54)
[2023-06-21] MEDS: Ipratropium HFA Inhaler (Combivent Respimat P&T Subs) INH SCH ×4 (07:06→18:54)
[2023-06-21] MEDS: INSULIN ASPART PER UNIT CHARGE SC SCH ×4 (08:27→21:11)
[2023-06-21] MEDS: DORZOLAMIDE HCL 2% OPH SOLN 10 ML BTL OP SCH ×2 (09:45→19:35)
[2023-06-21] MEDS: UMECLIDINIUM BROMIDE 62.5MCG/BLISTER 7 PUFFS/INHALER INH SCH (09:47)
[2023-06-21] MEDS: HEPARIN SOD 5,000 UNIT/0.5 ML VIAL SC SCH ×2 (09:47→19:36)
[2023-06-21] MEDS: LIDOCAINE 5% 1 PATCH TD SCH (09:47)
[2023-06-21] MEDS: GABAPENTIN 100 MG CAP PO SCH ×3 (09:48→19:35)
[2023-06-21] MEDS: ASPIRIN 81 MG ECTAB PO SCH (09:48)
[2023-06-21] MEDS: FUROSEMIDE 40 MG TAB PO SCH ×2 (09:48→17:22)
[2023-06-21] MEDS: CHOLECALCIFEROL 1,000 UNITS 25 MCG TAB PO SCH (09:48)
[2023-06-21] MEDS: METOPROLOL SUCC 25MG EXT REL TAB PO SCH (09:48)
[2023-06-21] MEDS: methIMAzole 5 MG TABLET PO SCH (09:48)
[2023-06-21] MEDS: ATORVASTATIN 40 MG TAB PO SCH (09:48)
[2023-06-21] MEDS: DICYCLOMINE HCL 20 MG TAB PO SCH (09:48)
[2023-06-21] MEDS: PANTOprazole 40 MG TAB PO SCH (09:49)
[2023-06-21] MEDS: SERTRALINE HCL 50 MG TABLET PO SCH (09:49)
[2023-06-21 10:21] LABS: BUN Creatinine Ratio 34.5 (10-20); Calcium 9.3 mg/dl (8.6-10.3); Creatinine Clr Calc Pharmacy 35.7 ml/min; Est GFR (African American) 38.2 ml/min; Potassium 4.3 mmol/L (3.5-5.1)
--- NOTE | 2023-06-21 17:09 | Hospitalist Progress Note ---
Date of Service June 21, 2023 delayed entry date of service noted above Assessment & Plan (1) Acute on chronic systolic (congestive) heart failure: Plan: per previous hospitalist notes with addendum: 82-year-old female with past medical history significant for type 2 diabetes chronic hypoxemic respiratory failure on home oxygen, hyperlipidemia, subclinical hyperthyroidism, asthma, COPD, allergic rhinitis, sleep apnea, chronic systolic CHF, pulmonary hypertension, hypertension, paroxysmal atrial fibrillation s/p Watchman device placement, irritable bowel syndrome with constipation, morbid obesity, GERD, gastroparesis, history of ischemic colitis, chronic kidney stage III, UTI with ESBL, generalized osteoarthritis, history of elevated plasma metanephrines, general generalized anxiety disorder, depression presents with shortness of breath and found to have acute on chronic systolic CHF. Acute on chronic systolic CHF EF 40 to 45% on echo done in November 2022. And also severe mitral regurgitation. TTE on 06/12/23 showed worsened EF 30-35, severely dil LA,mild to mod MR, mild to mod TR, RVSP 30-40, mod global hypokinesis of LV given IV lasix 40mg BID crea 1.6 --> 1.6 --> 1.8--> 1.4 Lasix resumed today, 40 mg p.o. twice daily Chest x-ray: No pleural effusion or pneumonia Nebs ordered Continue to monitor closely Cardiology SVC on board 06/21 stable overall crea stable continue Lasix 40mg po BID Chronic hypoxic respiratory failure on home oxygen History of asthma and COPD and sleep apnea Reports she uses 2L of oxygen during daytime and 4L at nighttime Continue home inhalers and oxygen - at baseline O2 supplement Type 2 diabetes Hold home p.o. medications Insulin sliding scale HbA1c is 6.8 Atrial fibrillation s/p Watchman device placement Continue home metoprolol History of subclinical hyperthyroidism Continue home methimazole. TSH is 3.679 GERD on Protonix Chronic kidney stage III Presented with creatinine 1.24 Cr is 1.62 repeat BMP tomorrow Reports low back pain Continue lidocaine patch Continue gabapentin Continue scheduled tylenol. DVT prophylaxis Lovenox. Disposition -- anticipate d/c home with home health services when medically stable Full code Admission and Anticipated Discharge Date Admission Date: June 12, 2023 Subjective ff up for CHF, etc seen resting in bed, on 2 L NC states she feels about the same as yesterday no chest pain no cough no other symptoms Review of Systems Review of Systems: all noted and negative except for above Physical Exam Physical Exam: General- oriented x 3, not in distress, speaks in sentences with no effort or accessory muscle use Eyes- anicteric Neck- no JVD Lungs- clear breath sounds bilaterally Heart- normal rate, regular rhythm; no murmurs Abdomen- normal bowel sounds, nondistended, soft, nontender Extremities- no pretibial edema, no calf tenderness Neuro- alert, oriented x 3; no gross focal neurologic deficits Skin- warm & dry Results & Data Results & Data Vital Signs (Past 12 Hours) Vital Signs Temp Pulse Pulse Resp BP Pulse Ox O2 Del Method 06/21/23 15:22 73 16 98 Nasal Cannula 06/21/23 11:00 36.8 C 77 18 129/71 97 Room Air 06/21/23 11:17 87 18 91 Nasal Cannula 06/21/23 08:21 36.7 C 86 88 18 115/69 97 Room Air 06/21/23 07:08 Nasal Cannula 06/21/23 07:07 83 18 95 Nasal Cannula O2 Flow Rate 06/21/23 15:22 4 06/21/23 11:00 06/21/23 11:17 4 06/21/23 08:21 06/21/23 07:08 4 06/21/23 07:07 4 all noted and reviewed including below
[2023-06-21] MEDS: FERROUS SULFATE 325 MG TAB PO SCH (19:35)
[2023-06-21] MEDS: BIMATOPROST 0.01% OP SOLN 2.5 ML BTL OP SCH (19:36)
[2023-06-22] MEDS: ACETAMINOPHEN 325 MG TAB PO SCH ×5 (02:56→23:25)
[2023-06-22] MEDS: oxyCODONE HCL IR 5 MG TAB (IMMEDIATE RELEASE) PO PRN ×4 (02:57→23:25)
[2023-06-22] MEDS: ISOSORBIDE DINITRATE 10 MG TAB PO SCH ×2 (05:40→13:17)
[2023-06-22] MEDS: Albuterol HFA 8 GM Inhaler (Combivent Respimat P&T Subs) INH SCH ×4 (07:03→20:12)
[2023-06-22] MEDS: Ipratropium HFA Inhaler (Combivent Respimat P&T Subs) INH SCH ×4 (07:03→20:11)
[2023-06-22] MEDS: HEPARIN SOD 5,000 UNIT/0.5 ML VIAL SC SCH ×2 (08:17→20:32)
[2023-06-22] MEDS: INSULIN ASPART PER UNIT CHARGE SC SCH ×4 (08:17→20:45)
[2023-06-22] MEDS: SUCRALFATE 1 GM TAB PO PRN (08:18)
[2023-06-22] MEDS: DICYCLOMINE HCL 20 MG TAB PO SCH (08:18)
[2023-06-22] MEDS: methIMAzole 5 MG TABLET PO SCH (08:18)
[2023-06-22] MEDS: GABAPENTIN 100 MG CAP PO SCH ×3 (08:18→20:30)
[2023-06-22] MEDS: METOPROLOL SUCC 25MG EXT REL TAB PO SCH (08:18)
[2023-06-22] MEDS: UMECLIDINIUM BROMIDE 62.5MCG/BLISTER 7 PUFFS/INHALER INH SCH (08:18)
[2023-06-22] MEDS: CHOLECALCIFEROL 1,000 UNITS 25 MCG TAB PO SCH (08:18)
[2023-06-22] MEDS: PANTOprazole 40 MG TAB PO SCH (08:18)
[2023-06-22] MEDS: SERTRALINE HCL 50 MG TABLET PO SCH (08:18)
[2023-06-22] MEDS: LIDOCAINE 5% 1 PATCH TD SCH (08:19)
[2023-06-22] MEDS: FUROSEMIDE 40 MG TAB PO SCH ×2 (08:19→18:01)
[2023-06-22] MEDS: DORZOLAMIDE HCL 2% OPH SOLN 10 ML BTL OP SCH ×2 (08:19→20:28)
[2023-06-22] MEDS: ATORVASTATIN 40 MG TAB PO SCH (08:19)
[2023-06-22] MEDS: ASPIRIN 81 MG ECTAB PO SCH (08:22)
--- NOTE | 2023-06-22 12:43 | Hospitalist Progress Note ---
Date of Service June 22, 2023 Assessment & Plan (1) Acute on chronic systolic (congestive) heart failure: Plan: per previous hospitalist notes with addendum: 82-year-old female with past medical history significant for type 2 diabetes chronic hypoxemic respiratory failure on home oxygen, hyperlipidemia, subclinical hyperthyroidism, asthma, COPD, allergic rhinitis, sleep apnea, chronic systolic CHF, pulmonary hypertension, hypertension, paroxysmal atrial f ibrillation s/p Watchman device placement, irritable bowel syndrome with constipation, morbid obesity, GERD, gastroparesis, history of ischemic colitis, chronic kidney stage III, UTI with ESBL, generalized osteoarthritis, history of elevated plasma metanephrines, general generalized anxiety disorder, depression presents with shortness of breath and found to have acute on chronic systolic CHF. Acute on chronic systolic CHF EF 40 to 45% on echo done in November 2022. And also severe mitral regurgitation. TTE on 06/12/23 showed worsened EF 30-35, severely dil LA,mild to mod MR, mild to mod TR, RVSP 30-40, mod global hypokinesis of LV given IV lasix 40mg BID crea 1.6 --> 1.6 --> 1.8--> 1.4 Lasix resumed today, 40 mg p.o. twice daily Chest x-ray: No pleural effusion or pneumonia Nebs ordered Continue to monitor closely Cardiology SVC on board 07/01 stable overall crea stable continue Lasix 40mg po BID repeat CXR today Chronic hypoxic respiratory failure on home oxygen History of asthma and COPD and sleep apnea Reports she uses 2L of oxygen during daytime and 4L at nighttime Continue home inhalers and oxygen - at baseline O2 supplement Type 2 diabetes Hold home p.o. medications Insulin sliding scale HbA1c is 6.8 Atrial fibrillation s/p Watchman device placement Continue home metoprolol History of subclinical hyperthyroidism Continue home methimazole. TSH is 3.679 GERD on Protonix Chronic kidney stage III Presented with creatinine 1.24 Cr is 1.62 repeat BMP tomorrow Reports low back pain Continue lidocaine patch Continue gabapentin Continue scheduled tylenol. DVT prophylaxis Lovenox. Disposition -- anticipate d/c home with home health services when medically stable Full code Admission and Anticipated Discharge Date Admission Date: June 12, 2023 Subjective ff up for CHF, etc seen resting in bed, comfortable on 2 L states she feels ok overall breathing ok so far no other new symptoms Review of Systems Review of Systems: all noted and negative except for above Physical Exam Physical Exam: General- oriented x 3, not in distress, speaks in sentences with no effort or accessory muscle use Eyes- anicteric Neck- no JVD Lungs- clear breath sounds bilaterally, no rales/wheezes Heart- normal rate, regular rhythm; no murmurs Abdomen- normal bowel sounds, nondistended, soft, nontender Extremities- no pretibial edema, no calf tenderness Neuro- alert, oriented x 3; no gross focal neurologic deficits Skin- warm & dry Results & Data Results & Data Vital Signs (Past 12 Hours) Vital Signs Temp Pulse Pulse Resp BP BP Pulse Ox 06/22/23 11:15 73 18 94 06/22/23 08:00 36.8 C 74 16 100/61 96 06/22/23 07:30 74 06/22/23 07:03 78 20 93 06/22/23 03:42 36.6 C 86 16 120/62 92 O2 Del Method O2 Flow Rate 06/22/23 11:15 Nasal Cannula 4 06/22/23 08:00 Nasal Cannula 2 06/22/23 07:30 06/22/23 07:03 Nasal Cannula 5 06/22/23 03:42 Nasal Cannula 4 all noted and reviewed including below
--- NOTE | 2023-06-22 13:27 | XRay Report ---
XR chest 1V portable HISTORY: Congestive heart failure. Follow-up. COMPARISON: Chest 06/20/2023. FINDINGS: Rotated study. No pneumothorax. No pleural effusions. Bibasilar linear densities persist an d favor subsegmental atelectasis. No new focal lung consolidations to suggest a pneumonia. No evidenc e for pulmonary edema. The heart remains enlarged. An atrial septal closure device is again noted. IMPRESSION: 1. Stable mild cardiomegaly. No evidence for pulmonary edema. 2. Bibasilar subsegmental atelectasis again noted. ACT 112: Negative or not required by law. Electronically signed by: Greg Waggoner M.D. 06/22/2023 1:26 PM
[2023-06-22] MEDS: BIMATOPROST 0.01% OP SOLN 2.5 ML BTL OP SCH (20:27)
[2023-06-22] MEDS: FERROUS SULFATE 325 MG TAB PO SCH (20:30)
[2023-06-23] MEDS: MELATONIN 3 MG TAB PO PRN ×2 (01:20→20:47)
[2023-06-23] MEDS: oxyCODONE HCL IR 5 MG TAB (IMMEDIATE RELEASE) PO PRN ×2 (05:33→20:46)
[2023-06-23] MEDS: ACETAMINOPHEN 325 MG TAB PO SCH ×3 (05:34→16:48)
[2023-06-23] MEDS: ISOSORBIDE DINITRATE 10 MG TAB PO SCH ×2 (06:30→12:14)
[2023-06-23] MEDS: SUCRALFATE 1 GM TAB PO PRN ×2 (06:30→07:51)
[2023-06-23] MEDS: Albuterol HFA 8 GM Inhaler (Combivent Respimat P&T Subs) INH SCH ×4 (07:07→19:31)
[2023-06-23] MEDS: Ipratropium HFA Inhaler (Combivent Respimat P&T Subs) INH SCH ×4 (07:07→19:30)
[2023-06-23] MEDS: FUROSEMIDE 40 MG TAB PO SCH (07:51)
[2023-06-23] MEDS: INSULIN ASPART PER UNIT CHARGE SC SCH ×4 (07:51→20:25)
[2023-06-23] MEDS: SERTRALINE HCL 50 MG TABLET PO SCH (07:52)
[2023-06-23] MEDS: HEPARIN SOD 5,000 UNIT/0.5 ML VIAL SC SCH ×2 (07:52→20:48)
[2023-06-23] MEDS: GABAPENTIN 100 MG CAP PO SCH ×3 (07:52→20:47)
[2023-06-23] MEDS: ATORVASTATIN 40 MG TAB PO SCH (07:53)
[2023-06-23] MEDS: METOPROLOL SUCC 25MG EXT REL TAB PO SCH (07:53)
[2023-06-23] MEDS: DICYCLOMINE HCL 20 MG TAB PO SCH (07:53)
[2023-06-23] MEDS: PANTOprazole 40 MG TAB PO SCH (07:54)
[2023-06-23] MEDS: ASPIRIN 81 MG ECTAB PO SCH (07:54)
[2023-06-23] MEDS: CHOLECALCIFEROL 1,000 UNITS 25 MCG TAB PO SCH (07:54)
[2023-06-23] MEDS: LIDOCAINE 5% 1 PATCH TD SCH (07:54)
[2023-06-23] MEDS: methIMAzole 5 MG TABLET PO SCH (07:54)
[2023-06-23] MEDS: UMECLIDINIUM BROMIDE 62.5MCG/BLISTER 7 PUFFS/INHALER INH SCH (07:55)
[2023-06-23] MEDS: DORZOLAMIDE HCL 2% OPH SOLN 10 ML BTL OP SCH ×2 (07:55→20:47)
[2023-06-23] MEDS ORDERED: PROMETHAZINE HCL 12.5 MG in SODIUM CHLORIDE 0.9% 50 ML IV PRN (11:38)
[2023-06-23] MEDS ORDERED: ONDANSETRON INJ 2 MG/ML 2 ML VIAL ONE (12:20)
[2023-06-23] MEDS: SODIUM CHLORIDE 0.9% 1,000 ML IV SCH (13:28)
--- NOTE | 2023-06-23 18:27 | Hospitalist Progress Note ---
Date of Service June 23, 2023 delayed entry date of service noted above Assessment & Plan (1) Acute on chronic systolic (congestive) heart failure: Plan: (1) Acute on chronic systolic (congestive) heart failure: per previous hospitalist notes with addendum: 82-year-old female with past medical history significant for type 2 diabetes chronic hypoxemic respiratory failure on home oxygen, hyperlipidemia, subclinical hyperthyroidism, asthma, COPD, allergic rhinitis, sleep apnea, chronic systolic CHF, pulmonary hypertension, hypertension, paroxysmal atrial fibrillation s/p Watchman device placement, irritable bowel syndrome with constipation, morbid obesity, GERD, gastroparesis, history of ischemic colitis, chronic kidney stage III, UTI with ESBL, generalized osteoarthritis, history of elevated plasma metanephrines, general generalized anxiety disorder, depression presents with shortness of breath and found to have acute on chronic systolic CHF. Acute on chronic systolic CHF EF 40 to 45% on echo done in November 2022. And also severe mitral regurgitation. TTE on 06/12/23 showed worsened EF 30-35, severely dil LA,mild to mod MR, mild to mod TR, RVSP 30-40, mod global hypokinesis of LV given IV lasix 40mg BID Held in light of elevation of creatinine Creatinine eventually improved to baseline, 1.4 Lasix resumed today, 40 mg p.o. twice daily Chest x-ray: No pleural effusion or pneumonia 06/23 States she feels lightheaded, blood pressure on the low normal side Lasix held Gentle IV fluids given Chronic hypoxic respiratory failure on home oxygen History of asthma and COPD and sleep apnea Reports she uses 2L of oxygen during daytime and 4L at nighttime Continue home inhalers and oxygen - at baseline O2 supplement Type 2 diabetes Hold home p.o. medications Insulin sliding scale HbA1c is 6.8 Atrial fibrillation s/p Watchman device placement Continue home metoprolol History of subclinical hyperthyroidism Continue home methimazole. TSH is 3.679 GERDon Protonix Chronic kidney stage III Presented with creatinine 1.24 Cr is 1.62 repeat BMP tomorrow Reports low back pain Continue lidocaine patch Continue gabapentin Continue scheduled tylenol. DVT prophylaxis Lovenox. Disposition -- anticipate d/c home with home health services when medically stable Full code Admission and Anticipated Discharge Date Admission Date: June 12, 2023 Subjective Follow-up for acute on chronic CHF exacerbation, etc. Seen resting in bed, sitting up, reports feeling nauseated, dizzy today Shortness of breath about the same No other new symptoms Review of Systems Review of Systems: all noted and negative except for above Physical Exam Physical Exam: General- oriented x 3, not in distress, speaks in sentences with no effort or accessory muscle use Eyes- anicteric Neck- no JVD Lungs- clear breath sounds bilaterally, no crackles or wheezing Heart- normal rate, regular rhythm; no murmurs Abdomen- normal bowel sounds, nondistended, soft, no tenderness Extremities- no pretibial edema, no calf tenderness Neuro- alert, oriented x 3; no gross focal neurologic deficits Skin- warm & dry Results & Data Results & Data Vital Signs (Past 12 Hours) Vital Signs Temp Pulse Resp BP BP Pulse Ox O2 Del Method 06/23/23 16:17 36.5 C 71 18 101/59 L 95 Nasal Cannula 06/23/23 14:56 36.7 C 68 14 96/74 L 97 Nasal Cannula 06/23/23 14:45 88 20 94 Nasal Cannula 06/23/23 10:54 36.7 C 66 20 104/62 94 Nasal Cannula 06/23/23 08:00 Nasal Cannula 06/23/23 07:29 36.9 C 86 18 102/64 93 Nasal Cannula 06/23/23 07:08 78 18 95 Nasal Cannula O2 Flow Rate 06/23/23 16:17 2 06/23/23 14:56 06/23/23 14:45 2 06/23/23 10:54 2 06/23/23 08:00 2 06/23/23 07:29 2 06/23/23 07:08 2 all noted and reviewed including below
[2023-06-23 20:18] LABS: BUN Creatinine Ratio 34.1 (10-20); Calcium 9.1 mg/dl (8.6-10.3); Creatinine Clr Calc Pharmacy 37.3 ml/min; Est GFR (African American) 40.6 ml/min; Potassium 4.4 mmol/L (3.5-5.1)
[2023-06-23] MEDS: BIMATOPROST 0.01% OP SOLN 2.5 ML BTL OP SCH (20:47)
[2023-06-23] MEDS: FERROUS SULFATE 325 MG TAB PO SCH (20:48)
[2023-06-24] MEDS: ACETAMINOPHEN 325 MG TAB PO SCH ×4 (00:49→17:49)
[2023-06-24] MEDS: oxyCODONE HCL IR 5 MG TAB (IMMEDIATE RELEASE) PO PRN ×4 (01:35→20:52)
[2023-06-24] MEDS: SODIUM CHLORIDE 0.9% 1,000 ML IV SCH ×2 (01:48→16:11)
[2023-06-24] MEDS: ISOSORBIDE DINITRATE 10 MG TAB PO SCH ×2 (06:04→12:13)
[2023-06-24 07:11] LABS: BUN Creatinine Ratio 35.1 (10-20); Calcium 8.9 mg/dl (8.6-10.3); Creatinine Clr Calc Pharmacy 39.6 ml/min; Est GFR (African American) 43.2 ml/min; Est GFR (Non-African American) 37.3 ml/min
[2023-06-24] MEDS: Ipratropium HFA Inhaler (Combivent Respimat P&T Subs) INH SCH ×4 (07:12→19:24)
[2023-06-24] MEDS: Albuterol HFA 8 GM Inhaler (Combivent Respimat P&T Subs) INH SCH ×4 (07:12→19:24)
[2023-06-24] MEDS: INSULIN ASPART PER UNIT CHARGE SC SCH ×4 (07:52→20:11)
[2023-06-24] MEDS: ASPIRIN 81 MG ECTAB PO SCH (07:53)
[2023-06-24] MEDS: ATORVASTATIN 40 MG TAB PO SCH (07:53)
[2023-06-24] MEDS: METOPROLOL SUCC 25MG EXT REL TAB PO SCH (07:54)
[2023-06-24] MEDS: GABAPENTIN 100 MG CAP PO SCH ×3 (07:54→20:03)
[2023-06-24] MEDS: PANTOprazole 40 MG TAB PO SCH (07:55)
[2023-06-24] MEDS: DICYCLOMINE HCL 20 MG TAB PO SCH (07:55)
[2023-06-24] MEDS: CHOLECALCIFEROL 1,000 UNITS 25 MCG TAB PO SCH (07:55)
[2023-06-24] MEDS: methIMAzole 5 MG TABLET PO SCH (07:55)
[2023-06-24] MEDS: SERTRALINE HCL 50 MG TABLET PO SCH (07:55)
[2023-06-24] MEDS: LIDOCAINE 5% 1 PATCH TD SCH (07:56)
[2023-06-24] MEDS: UMECLIDINIUM BROMIDE 62.5MCG/BLISTER 7 PUFFS/INHALER INH SCH (07:56)
[2023-06-24] MEDS: HEPARIN SOD 5,000 UNIT/0.5 ML VIAL SC SCH ×2 (07:56→20:02)
[2023-06-24] MEDS: DORZOLAMIDE HCL 2% OPH SOLN 10 ML BTL OP SCH ×2 (07:56→20:02)
--- NOTE | 2023-06-24 17:33 | Hospitalist Progress Note ---
Date of Service June 24, 2023 Assessment & Plan (1) Acute on chronic systolic (congestive) heart failure: Plan: (1) Acute on chronic systolic (congestive) heart failure: per previous hospitalist notes with addendum: 82-year-old female with past medical history significant for type 2 diabetes chronic hypoxemic respiratory failure on home oxygen, hyperlipidemia, subclinical hyperthyroidism, asthma, COPD, allergic rhinitis, sleep apnea, chronic systolic CHF, pulmonary hypertension, hypertension, paroxysmal atrial fibrillation s/p Watchman device placement, irritable bowel syndrome with constipation, morbid obesity, GERD, gastroparesis, history of ischemic colitis, chronic kidney stage III, UTI with ESBL, generalized osteoarthritis, history of elevated plasma metanephrines, general generalized anxiety disorder, depression presents with shortness of breath and found to have acute on chronic systolic CHF. Acute on chronic systolic CHF EF 40 to 45% on echo done in November 2022. And also severe mitral regurgitation. TTE on 06/12/23 showed worsened EF 30-35, severely dil LA,mild to mod MR, mild to mod TR, RVSP 30-40, mod global hypokinesis of LV given IV lasix 40mg BID Held in light of elevation of creatinine Creatinine eventually improved to baseline, 1.4 Lasix resumed today, 40 mg p.o. twice daily Chest x-ray: No pleural effusion or pneumonia 06/24 Dizziness resolved, low blood pressure improved DC IV NSS Resume Lasix in a day or 2 Usually on 40 mg p.o. twice daily May need alternating 40 mg twice daily and 40 mg daily Chronic hypoxic respiratory failure on home oxygen History of asthma and COPD and sleep apnea Reports she uses 2L of oxygen during daytime and 4L at nighttime Continue home inhalers and oxygen - at baseline O2 supplement Type 2 diabetes Hold home p.o. medications Insulin sliding scale HbA1c is 6.8 Atrial fibrillation s/p Watchman device placement Continue home metoprolol History of subclinical hyperthyroidism Continue home methimazole. TSH is 3.679 GERDon Protonix Chronic kidney stage III Presented with creatinine 1.24 Cr is 1.62 repeat BMP tomorrow Reports low back pain Continue lidocaine patch Continue gabapentin Continue scheduled tylenol. DVT prophylaxis Lovenox. Disposition -- anticipate d/c home with home health services when medically stable Full code Admission and Anticipated Discharge Date Admission Date: June 12, 2023 Subjective Follow-up for acute on chronic CHF exacerbation, etc. Seen resting in bed, comfortable, not in distress On 2 L of oxygen States she feels improved today compared to yesterday Nausea resolved, also dizziness resolved No other new symptoms Patient now agreeable to [facility] Review of Systems Review of Systems: all noted and negative except for above Physical Exam Physical Exam: General- oriented x 2, not in distress, speaks in sentences with no effort or accessory muscle use Eyes- anicteric Neck- no JVD Lungs- clear breath sounds bilaterally, no crackles or wheezing Heart- normal rate, regular rhythm; no murmurs Abdomen- normal bowel sounds, nondistended, soft, non tenderness Extremities- no pretibial edema, no calf tenderness Neuro- alert, oriented x 2; no gross focal neurologic deficits Skin- warm & dry Results & Data Results & Data Vital Signs (Past 12 Hours) Vital Signs Temp Pulse Resp BP Pulse Ox O2 Del Method O2 Flow Rate 06/24/23 15:18 36.6 C 78 16 121/74 95 Room Air 06/24/23 11:36 36.7 C 82 16 113/74 95 Nasal Cannula 2 06/24/23 11:06 71 16 96 Nasal Cannula 2 06/24/23 08:00 36.4 C L 72 18 101/64 95 Nasal Cannula 2 06/24/23 07:58 Nasal Cannula 2 06/24/23 07:13 72 16 94 Nasal Cannula 2 all noted and reviewed including below
[2023-06-24] MEDS: BIMATOPROST 0.01% OP SOLN 2.5 ML BTL OP SCH (20:03)
[2023-06-24] MEDS: FERROUS SULFATE 325 MG TAB PO SCH (20:03)
[2023-06-24] MEDS: MELATONIN 3 MG TAB PO PRN (20:52)
[2023-06-25] MEDS: ACETAMINOPHEN 325 MG TAB PO SCH ×5 (00:49→23:59)
[2023-06-25] MEDS: oxyCODONE HCL IR 5 MG TAB (IMMEDIATE RELEASE) PO PRN ×3 (03:03→21:19)
[2023-06-25] MEDS: ALBUTEROL 0.083% NEBU SOLN 3 ML VIAL INH PRN ×2 (03:19→23:23)
[2023-06-25] MEDS: ISOSORBIDE DINITRATE 10 MG TAB PO SCH ×2 (06:10→12:08)
[2023-06-25] MEDS: Ipratropium HFA Inhaler (Combivent Respimat P&T Subs) INH SCH ×4 (07:40→19:30)
[2023-06-25] MEDS: Albuterol HFA 8 GM Inhaler (Combivent Respimat P&T Subs) INH SCH ×4 (07:40→19:31)
[2023-06-25] MEDS: SERTRALINE HCL 50 MG TABLET PO SCH (08:59)
[2023-06-25] MEDS: METOPROLOL SUCC 25MG EXT REL TAB PO SCH (08:59)
[2023-06-25] MEDS: ATORVASTATIN 40 MG TAB PO SCH (08:59)
[2023-06-25] MEDS: GABAPENTIN 100 MG CAP PO SCH ×3 (08:59→21:13)
[2023-06-25] MEDS: ASPIRIN 81 MG ECTAB PO SCH (08:59)
[2023-06-25] MEDS: DICYCLOMINE HCL 20 MG TAB PO SCH (08:59)
[2023-06-25] MEDS: PANTOprazole 40 MG TAB PO SCH (09:00)
[2023-06-25] MEDS: SUCRALFATE 1 GM TAB PO PRN (09:00)
[2023-06-25] MEDS: methIMAzole 5 MG TABLET PO SCH (09:00)
[2023-06-25] MEDS: CHOLECALCIFEROL 1,000 UNITS 25 MCG TAB PO SCH (09:00)
[2023-06-25] MEDS: UMECLIDINIUM BROMIDE 62.5MCG/BLISTER 7 PUFFS/INHALER INH SCH (09:01)
[2023-06-25] MEDS: HEPARIN SOD 5,000 UNIT/0.5 ML VIAL SC SCH ×2 (09:01→21:12)
[2023-06-25] MEDS: INSULIN ASPART PER UNIT CHARGE SC SCH ×4 (09:01→20:01)
[2023-06-25] MEDS: LIDOCAINE 5% 1 PATCH TD SCH (09:01)
[2023-06-25] MEDS: DORZOLAMIDE HCL 2% OPH SOLN 10 ML BTL OP SCH ×2 (09:03→21:12)
--- NOTE | 2023-06-25 15:44 | Hospitalist Progress Note ---
Date of Service June 25, 2023 Assessment & Plan (1) Acute on chronic systolic (congestive) heart failure: Plan: Ms. Harrington is an 82-year-old woman with past medical history significant for type 2 diabetes, chronic hypoxemic respiratory failure on home oxygen, h yperlipidemia, subclinical hyperthyroidism, asthma, COPD, allergic rhinitis, sleep apnea, chronic systolic CHF, pulmonary hypertension, hypertension, paroxysmal atrial fibrillation s/p Watchman device placement, irritable bowel syndrome with constipation, morbid obesity, GERD, gastroparesis, history of ischemic colitis, chronic kidney stage III, prior UTI with ESBL, generalized osteoarthritis, history of elevated plasma metanephrines, general generalized anxiety disorder, depression who was admitted on 06/12/2023 for acute on chronic heart failure exacerbation. Patient responded to IV diuresis; however, further GDMT uptitration limited due to hypotension Patient pending placement for SNF rehab at this time #Acute on chronic systolic (congestive) heart failure #Severe Mitral Regurgitation EF 40 to 45% on echo done in November 2022. And also severe mitral regurgitation. TTE on 06/12/23 showed worsened EF 30-35, severely dil LA,mild to mod MR, mild to mod TR, RVSP 30-40, mod global hypokinesis of LV responded to aggressive diuresis, briefly held due to JOSE DAVID on CKD; resumed at 40mg BID; however, pressures notably soft and patient symptomatic -Held lasix today, resume 40mg daily tomorrow -Discontinued spironolactone and potassium supplementation -Continue ASA and atorvastatin -Continue metoprolol 12.5mg BID and isordil 10mg BID -Cardiology follow up as OP #Chronic hypoxic respiratory failure on home oxygen History of asthma and COPD and sleep apnea Reports she uses 2L of oxygen during daytime and 4L at nighttime Continue home inhalers and oxygen - at baseline O2 supplement #Type 2 diabetes Hold home p.o. medications Insulin sliding scale HbA1c is 6.8 #Atrial fibrillation s/p Watchman device placement Continue home metoprolol #Hyperthyroidism Continue home methimazole. TSH is 3.679 #GERDon Protonix #Chronic kidney stage III BMP in am #Chronic low back pain Continue lidocaine patch Continue gabapentin Continue scheduled tylenol. DVT prophylaxis Lovenox. Disposition Pending insurance authorization Full code Admission and Anticipated Discharge Date Admission Date: June 12, 2023 Subjective Patient evaluated at bedside Patient states that she is feeling better, but notes some dizziness and fatigue. She was able to get to the commode with assistance, but endorses weakness She denies any chest pain, continued SOB, palpitations, vision changes or syncopal/near syncopal events. Review of Systems Review of Systems: All systems reviewed & are unremarkable except as noted in Subjective Physical Exam Constitutional: WD/WN, vitals as above Respiratory: normal respiratory effort, lungs clear to auscultation 2 L o2 NC Cardiovascular: irregular +YUSEF Gastrointestinal (Abdomen): normal bowel sounds, soft, nontender, no hepatosplenomegaly Musculoskeletal: mild edema bilateral lower extremities Results & Data Results & Data Vital Signs (Past 12 Hours) Vital Signs Temp Pulse Resp BP BP Pulse Ox O2 Del Method 06/25/23 15:40 36.4 C L 70 18 119/71 98 Nasal Cannula 06/25/23 12:43 97 06/25/23 11:16 87 18 96 Nasal Cannula 06/25/23 10:58 36.8 C 85 20 111/74 96 Nasal Cannula 06/25/23 08:00 Nasal Cannula 06/25/23 07:21 36.7 C 83 18 89/56 L 95 Nasal Cannula O2 Flow Rate 06/25/23 15:40 06/25/23 12:43 2 06/25/23 11:16 2 06/25/23 10:58 2 06/25/23 08:00 2 06/25/23 07:21 2 Laboratory Results no labs for review Diagnostic Findings no new diagnostic data for review Medications Administered Home Medications Medication Instructions Recorded Confirmed Last Taken atorvastatin 40 mg tablet 40 mg PO [facility] 06/23/19 06/11/23 06/11/23 cholecalciferol (vitamin D3) 25 2,000 unit PO [facility] 06/23/19 06/11/23 06/11/23 mcg (1,000 unit) capsule (Vitamin D3) albuterol sulfate 2.5 mg/3 mL 2.5 mg inhalation BID PRN 09/25/19 06/11/23 04/09/21 (0.083 %) solution for nebulization .WORSENING ASTHMA bimatoprost 0.01 % eye drops 1 drp OPB 09/25/19 06/11/23 06/10/23 ([place]) ferrous sulfate 325 mg (65 mg 325 mg PO 02/23/20 06/11/2323 iron) tablet (iron) aspirin 81 mg tablet,delayed 81 mg PO DAILY 02/05/21 06/11/23 06/11/23 release ([place] Low Dose Aspirin) ipratropium 20 mcg-albuterol 100 1 puff inhalation QID 04/09/21 06/11/23 06/11/23 mcg/actuation mist for inhalation (Combivent Respimat) potassium chloride 20 mEq 20 meq PO HS 04/09/21 06/11/23 06/10/23 tablet,extended release(part/cryst) (Klor-Con M) dicyclomine 20 mg tablet 20 mg PO DAILY 01/14/22 06/11/23 06/11/23 spironolactone 25 mg tablet 12.5 mg PO 3XWK 01/14/22 06/11/23 06/11/23 sertraline 25 mg tablet 25 mg PO DAILY 03/13/22 06/11/23 06/11/23 furosemide 40 mg tablet 40 mg PO BID 05/31/22 06/11/23 06/11/23 methimazole 5 mg tablet 5 mg PO DAILY 07/17/22 06/11/23 06/11/23 metoprolol succinate 25 mg 12.5 mg PO DAILY 07/17/22 06/11/23 06/11/23 tablet,extended release 24 hr dorzolamide 2 % eye drops 1 drp ophthalmic (eye) BID 11/16/22 06/11/23 06/11/23 08:00 glimepiride 2 mg tablet 2 mg PO DAILY PRN NEEDED PER PT 11/16/22 06/11/23 Unknown oxycodone 5 mg tablet 5 mg PO Q4H PRN Pain 11/16/22 06/11/23 Unknown pantoprazole 40 mg tablet,delayed 40 mg PO DAILY 11/16/22 06/11/23 06/11/23 release sucralfate 1 gram tablet 1 g PO ACHS PRN Gi Upset 11/16/22 06/11/23 Unknown tiotropium bromide 2.5 2 puff inhalation DAILY #1 inhaler 02/10/23 06/11/23 06/11/23 mcg/actuation mist for inhalation (Spiriva Respimat) albuterol sulfate 90 mcg/actuation 2 puff inhalation QID PRN 06/11/23 06/11/23 Unknown aerosol inhaler Shortness Of Breath gabapentin 100 mg capsule 100 mg PO TID 06/14/23 06/14/23 Unknown Active Medications Generic Name Dose Route Start Last Admin Trade Name Freq PRN Reason Stop Dose Admin Acetaminophen 650 mg 06/14/23 09:00 06/25/23 12:07 Acetaminophen 325 Mg Tab PO 07/14/23 08:59 650 mg Q6 ANDREA Administration Albuterol 2 puffs 06/12/23 06:25 06/23/23 01:19 Albuterol Hfa 8 Gm Inhaler INH 07/12/23 06:24 2 puffs QID PRN Administration Shortness Of Breath Albuterol 2.5 mg 06/12/23 06:25 06/25/23 03:19 Albuterol 0.083% Nebu Soln 3 Ml Vial INH 07/12/23 06:24 2.5 mg BID PRN Administration .WORSENING ASTHMA Protocol Albuterol 1 puffs 06/12/23 07:00 06/25/23 14:33 Albuterol Hfa 8 Gm Inhaler (Combivent Respimat P&T Subs) INH 07/12/23 06:59 1 puffs QIDR ANDREA Administration Protocol Aspirin 81 mg 06/12/23 09:00 06/25/23 08:59 Aspirin 81 Mg Ectab PO 07/12/23 08:59 81 mg DAILY ANDREA Administration Atorvastatin Calcium 40 mg 06/12/23 09:00 06/25/23 08:59 Atorvastatin 40 Mg Tab PO 07/12/23 08:59 40 mg QAM ANDREA Administration Bimatoprost 1 drops 06/12/23 21:00 06/24/23 20:03 Bimatoprost 0.01% Op Soln 2.5 Ml Btl OP 07/12/23 20:59 1 drops HS ANDREA Administration Dicyclomine HCl 20 mg 06/12/23 09:00 06/25/23 08:59 Dicyclomine Hcl 20 Mg Tab PO 07/12/23 08:59 20 mg DAILY ANDREA Administration Dorzolamide HCl 1 drops 06/12/23 09:00 06/25/23 09:03 Dorzolamide Hcl 2% Oph Soln 10 Ml Btl OP 07/12/23 08:59 1 drops BID ANDREA Administration Ferrous Sulfate 325 mg 06/12/23 21:00 06/24/23 20:03 Ferrous Sulfate 325 Mg Tab PO 07/12/23 20:59 325 mg HS ANDREA Administration Gabapentin 100 mg 06/14/23 14:00 06/25/23 14:33 Gabapentin 100 Mg Cap PO 07/14/23 13:59 100 mg TID ANDREA Administration Heparin Sodium (Porcine) 5,000 units 06/19/23 10:30 06/25/23 09:01 Heparin Sod 5,000 Unit/0.5 Ml Vial SC 07/19/23 10:29 Not Given Q12 ANDREA Insulin Aspart 0 units 06/12/23 07:30 06/25/23 12:01 Insulin Aspart Per Unit Charge SC 07/12/23 07:29 Not Given ACHS ANDREA Ipratropium [place] 1 puffs 06/12/23 07:00 06/25/23 14:34 Ipratropium Hfa Inhaler (Combivent Respimat P&T Subs) INH 07/12/23 06:59 1 puffs QIDR ANDREA Administration Protocol Isosorbide Dinitrate 10 mg 06/13/23 12:00 06/25/23 12:08 Isosorbide Dinitrate 10 Mg Tab PO 07/13/23 11:59 10 mg BID@0700,1200 ANDREA Administration Lidocaine 1 patch 06/13/23 11:00 06/25/23 09:01 Lidocaine 5% 1 Patch TD 07/13/23 10:59 Not Given QAM COUNT INCLUDES [facility] Melatonin 3 mg 06/22/23 23:01 06/24/23 20:52 Melatonin 3 Mg Tab PO 07/22/23 23:00 3 mg HS PRN Administration Sleep Methimazole 5 mg 06/12/23 09:00 06/25/23 09:00 Methimazole 5 Mg Tablet PO 07/12/23 08:59 5 mg DAILY ANDREA Administration Metoprolol Succinate 12.5 mg 06/12/23 09:00 06/25/23 08:59 Metoprolol Succ 25mg Ext Rel Tab PO 07/12/23 08:59 12.5 mg DAILY ANDREA Administration Miscellaneous 1 each 06/13/23 21:00 06/24/23 20:05 Remove Lidoderm Patch N/A 07/13/23 20:59 1 each DAILY@2100 ANDREA Administration Oxycodone HCl 5 mg 06/19/23 00:50 06/25/23 09:05 Oxycodone Hcl Ir 5 Mg Tab (Immediate Release) PO 07/03/23 00:49 5 mg Q4H PRN Administration Pain Pantoprazole Sodium 40 mg 06/12/23 09:00 06/25/23 09:00 Pantoprazole 40 Mg Tab PO 07/12/23 08:59 40 mg DAILY ANDREA Administration Sertraline HCl 25 mg 06/12/23 09:00 06/25/23 08:59 Sertraline Hcl 50 Mg Tablet PO 07/12/23 08:59 25 mg DAILY ANDREA Administration Spironolactone 12.5 mg 06/13/23 09:00 06/18/23 08:14 Spironolactone 12.5 Mg Tab PO 07/13/23 08:59 12.5 mg MoWeFr@0900 COUNT INCLUDES [facility] Administration Sucralfate 1 gm 06/12/23 06:25 06/25/23 09:00 Sucralfate 1 Gm Tab PO 07/12/23 06:24 1 gm ACHS PRN Administration Gi Upset Umeclidinium [place] 1 puffs 06/12/23 09:00 06/25/23 09:01 Umeclidinium [place] 62.5mcg/Blister 7 Puffs/Inhaler INH 07/12/23 08:59 Not Given DAILY COUNT INCLUDES [facility] Vitamin D 2,000 units 06/12/23 09:00 06/25/23 09:00 Cholecalciferol 1,000 Units 25 Mcg Tab PO 07/12/23 08:59 2,000 units QAM ANDREA Administration
[2023-06-25] MEDS: BIMATOPROST 0.01% OP SOLN 2.5 ML BTL OP SCH (21:12)
[2023-06-25] MEDS: FERROUS SULFATE 325 MG TAB PO SCH (21:13)
[2023-06-25] MEDS: MELATONIN 3 MG TAB PO PRN (23:11)
[2023-06-26] MEDS: ACETAMINOPHEN 325 MG TAB PO SCH ×2 (05:51→12:30)
[2023-06-26] MEDS: ISOSORBIDE DINITRATE 10 MG TAB PO SCH ×2 (05:52→12:28)
[2023-06-26] MEDS: Ipratropium HFA Inhaler (Combivent Respimat P&T Subs) INH SCH ×3 (06:22→14:54)
[2023-06-26] MEDS: Albuterol HFA 8 GM Inhaler (Combivent Respimat P&T Subs) INH SCH ×3 (06:22→14:53)
[2023-06-26 06:43] LABS: BUN Creatinine Ratio 35.8 (10-20); Calcium 9.2 mg/dl (8.6-10.3); Creatinine Clr Calc Pharmacy 49.1 ml/min; Est GFR (African American) 55.8 ml/min; Est GFR (Non-African American) 48.2 ml/min; Magnesium 1.8 mg/dl (1.7-2.4); Phosphorus 3.4 mg/dl (2.5-4.9); Potassium 4.1 mmol/L (3.5-5.1)
--- NOTE | 2023-06-26 08:34 | Hospitalist Progress Note ---
Date of Service June 26, 2023 Assessment & Plan (1) Acute on chronic systolic (congestive) heart failure: Plan: Ms. Harrington is an 82-year-old woman with past medical history significant for type 2 diabetes, chronic hypoxemic respiratory failure on home oxygen, h yperlipidemia, subclinical hyperthyroidism, asthma, COPD, allergic rhinitis, sleep apnea, chronic systolic CHF, pulmonary hypertension, hypertension, paroxysmal atrial fibrillation s/p Watchman device placement, irritable bowel syndrome with constipation, morbid obesity, GERD, gastroparesis, history of ischemic colitis, chronic kidney stage III, prior UTI with ESBL, generalized osteoarthritis, history of elevated plasma metanephrines, general generalized anxiety disorder, depression who was admitted on 06/12/2023 for acute on chronic heart failure exacerbation. Patient responded to IV diuresis; however, further GDMT uptitration limited due to hypotension Patient pending placement for SNF rehab at this time #Acute on chronic systolic (congestive) heart failure #Severe Mitral Regurgitation EF 40 to 45% on echo done in November 2022. And also severe mitral regurgitation. TTE on 06/12/23 showed worsened EF 30-35, severely dil LA,mild to mod MR, mild to mod TR, RVSP 30-40, mod global hypokinesis of LV responded to aggressive diuresis, briefly held due to JOSE DAVID on CKD; resumed at 40mg BID; however, pressures notably soft and patient symptomatic -Held lasix today, resume 40mg daily tomorrow -Discontinued spironolactone and potassium supplementation -Continue ASA and atorvastatin -Continue metoprolol 12.5mg BID and isordil 10mg BID -Cardiology follow up as OP #Chronic hypoxic respiratory failure on home oxygen History of asthma and COPD and sleep apnea Reports she uses 2L of oxygen during daytime and 4L at nighttime Continue home inhalers and oxygen - at baseline O2 supplement #Type 2 diabetes Hold home p.o. medications Insulin sliding scale HbA1c is 6.8 #Atrial fibrillation s/p Watchman device placement Continue home metoprolol #Hyperthyroidism Continue home methimazole. TSH is 3.679 #GERDon Protonix #Chronic kidney stage III BMP in am #Chronic low back pain Continue lidocaine patch Continue gabapentin Continue scheduled tylenol. DVT prophylaxis Lovenox. Disposition Pending insurance authorization Full code Admission and Anticipated Discharge Date Admission Date: June 12, 2023 Physical Exam Constitutional: WD/WN, vitals as above Respiratory: normal respiratory effort, lungs clear to auscultation Gastrointestinal (Abdomen): normal bowel sounds, soft, nontender, no hepatosplenomegaly Results & Data Results & Data Vital Signs (Past 12 Hours) Vital Signs Temp Pulse Resp BP Pulse Ox O2 Del Method O2 Flow Rate 06/26/23 08:30 36.7 C 63 18 101/61 95 Nasal Cannula 2.0 06/26/23 06:24 16 97 Nasal Cannula 2 06/26/23 03:16 36.4 C L 78 20 112/83 97 Nasal Cannula 2 06/25/23 23:23 20 Nasal Cannula 2 06/25/23 22:56 36.6 C 72 18 125/79 96 Nasal Cannula 2
[2023-06-26] MEDS: ATORVASTATIN 40 MG TAB PO SCH (08:58)
[2023-06-26] MEDS: ASPIRIN 81 MG ECTAB PO SCH (08:58)
[2023-06-26] MEDS: oxyCODONE HCL IR 5 MG TAB (IMMEDIATE RELEASE) PO PRN (08:58)
[2023-06-26] MEDS: HEPARIN SOD 5,000 UNIT/0.5 ML VIAL SC SCH (08:58)
[2023-06-26] MEDS: DICYCLOMINE HCL 20 MG TAB PO SCH (08:59)
[2023-06-26] MEDS: methIMAzole 5 MG TABLET PO SCH (08:59)
[2023-06-26] MEDS: SUCRALFATE 1 GM TAB PO PRN (08:59)
[2023-06-26] MEDS: SERTRALINE HCL 50 MG TABLET PO SCH (08:59)
[2023-06-26] MEDS: METOPROLOL SUCC 25MG EXT REL TAB PO SCH (08:59)
[2023-06-26] MEDS: DORZOLAMIDE HCL 2% OPH SOLN 10 ML BTL OP SCH (09:00)
[2023-06-26] MEDS: CHOLECALCIFEROL 1,000 UNITS 25 MCG TAB PO SCH (09:00)
[2023-06-26] MEDS: GABAPENTIN 100 MG CAP PO SCH ×2 (09:00→12:28)
[2023-06-26] MEDS: PANTOprazole 40 MG TAB PO SCH (09:00)
[2023-06-26] MEDS ORDERED: FUROSEMIDE 40 MG TAB PO SCH (09:00)
[2023-06-26] MEDS: UMECLIDINIUM BROMIDE 62.5MCG/BLISTER 7 PUFFS/INHALER INH SCH (09:01)
[2023-06-26] MEDS: INSULIN ASPART PER UNIT CHARGE SC SCH ×2 (09:01→12:27)
[2023-06-26] MEDS: LIDOCAINE 5% 1 PATCH TD SCH (09:01)
--- NOTE | 2023-06-26 17:03 | Discharge Summary ---
Discharge Summary Date of Service June 26, 2023 Notes For Next Care Provider -HF Clinic follow up -Cards follow up Medication Changes From Visit -Discontinued Spironolactone and potassium supplementation -Dose for Lasix will be 40mg daily given low blood pressure, however, if weight increased by more than 2 pounds, advised additional dose in afternoon -Added Isordil 10mg at 7am and 12pm(noon) Admission HPI Per Admitting Provider 82-year-old female with past medical history significant for type 2 diabetes chronic hypoxemic respiratory failure on home oxygen, hyperlipidemia, subclinical hyperthyroidism, asthma, COPD, allergic rhinitis, sleep apnea, chronic systolic CHF, pulmonary hypertension, hypertension, paroxysmal atrial fibrillation s/p Watchman device placement, irritable bowel syndrome with constipation, morbid obesity, GERD, gastroparesis, history of ischemic colitis, chronic kidney stage III, UTI with ESBL, generalized osteoarthritis, history of elevated plasma metanephrines, general generalized anxiety disorder, depression, patient had elective colon resection at [facility] Nov 01 for recurrent diverticulitis and colovesical fistula and was discharged to [facility] and was admitted on November 16, 2022 for confusion and COVID at [facility]. Treated with remdesivir and steroid for COVID. During that hospitalization patient developed wound dehiscence from recent colon resection surgery and was transferred to [facility] where patient was taken to the OR and had fascial closure and did fine and got discharged to follow-up with colorectal colorectal surgery clinic. Patient lives alone and ambulates without any support. Daughter lives close by. Patient says since last 1 week she is getting progressively getting short of breath. Also she developed lower extremity edema since last 2 days. Denies any chest pain. Has some dry cough. No fevers. Has some headache. No blurred visions. No earache runny nose or sore throat. Appetite is okay. Denies any chest pain. No nausea. Normal bowel and bladder movements. Past medical history as mentioned above Past surgical history Appendectomy with removal of gallbladder in 1959, colonoscopy with biopsy, cystoscopy with stent insertion bilateral, EGD, EGD with endoscopic ultrasound, exploratory laparotomy, incisional hernia repair, laparoscopic partial colectomy with coloproctostomy, ligation of oviducts, tonsillectomy, sigmoidoscopy, small bowel endoscopy with removal of foreign body, Social history . No smoking. No alcohol. No drug use. Family history mother had breast cancer father had heart disease sinus sleep apnea, brother has COPD daughter has asthma Admission Exam Per Admitting Provider General- Not in distress Head- atraumatic Eyes- PERRL, ENT- oropharynx clear Neck- supple, no JVD, no adenopathy, carotids +2/2, no bruits appreciated Lungs- clear to auscultation mild bibasilar occasional wheezing Heart- regular rate and rhythm; no murmur, no gallop, Abdomen- normal bowel sounds, soft, nontender, no distension. Extremities- b/l lower extremity +2 edema present. No erythema seen. Neuro- alert, oriented x 3; PERRL, no facial palsy; no dysarthria;moves extremities. Skin- warm & dry Principal Dx & Hospital Course #1 = Principal Diagnosis (1) Acute on chronic systolic (congestive) heart failure: Plan Ms. Harrington is an 82-year-old woman with past medical history significant for type 2 diabetes, chronic hypoxemic respiratory failure on home oxygen, hyperlipidemia, subclinical hyperthyroidism, asthma, COPD, allergic rhinitis, sleep apnea, chronic systolic CHF, pulmonary hypertension, hypertension, paroxysmal atrial fibrillation s/p Watchman device placement, irritable bowel syndrome with constipation, morbid obesity, GERD, gastroparesis, history of ischemic colitis, chronic kidney stage III, prior UTI with ESBL, generalized osteoarthritis, history of elevated plasma metanephrines, general generalized anxiety disorder, depression who was admitted on 06/12/2023 for acute on chronic heart failure exacerbation. Patient responded to IV diuresis; however, further GDMT uptitration limited due to hypotension. Patient with episodic hypotension that resolved with small boluses of LR. Given tenuous fluid status, transitioned patient to 40mg furosemide daily with instructions for additional dose given +2pound weight increase as well as close follow up with HF clinic. On day of discharge, patient states that her pain is controlled, her breathing is comfortable, as well as no new concerns. Patient discharged to SNF for rehab. #Acute on chronic systolic (congestive) heart failure #Severe Mitral Regurgitation EF 40 to 45% on echo done in November 2022. And also severe mitral regurgitation. TTE on 06/12/23 showed worsened EF 30-35, severely dil LA,mild to mod MR, mild to mod TR, RVSP 30-40, mod global hypokinesis of LV responded to aggressive diuresis, briefly held due to JOSE DAVID on CKD; resumed at 40mg BID; however, pressures notably soft and patient symptomatic -Discontinued spironolactone and potassium supplementation -Continue ASA and atorvastatin -Continue metoprolol 12.5mg daily (succinate) and isordil 10mg BID -Cardiology follow up as OP -Lasic 40mg daily with instructions for additional dose if weight increase; further adjustment with close HF clinic follow up #Chronic hypoxic respiratory failure on home oxygen History of asthma and COPD and sleep apnea Reports she uses 2L of oxygen during daytime and 4L at nighttime Continue home inhalers and oxygen - at baseline O2 supplement #Type 2 diabetes Continue home p.o. medications HbA1c is 6.8 #Atrial fibrillation s/p Watchman device placement Continue metoprolol #Hyperthyroidism Continue home methimazole. TSH is 3.679 #GERDon Protonix #Chronic kidney stage III stable, at baseline #Chronic low back pain Continue gabapentin Discharge Exam Constitutional WD/WN, vitals as above Respiratory normal respiratory effort, lungs clear to auscultation baseline o2 requirement 2L Cardiovascular RRR, no murmur, no edema Gastrointestinal (Abdomen) normal bowel sounds, soft, nontender, no hepatosplenomegaly Skin no rashes, warm and dry Neurologic no focal deficits Psychiatric A+Ox3, euthymic affect Updated Medication List Medication Instructions Recorded Confirmed Type atorvastatin 40 mg tablet 40 mg PO QAM 06/23/19 06/11/23 History cholecalciferol (vitamin D3) 25 2,000 unit PO QAM 06/23/19 06/11/23 History mcg (1,000 unit) capsule (Vitamin D3) albuterol sulfate 2.5 mg/3 mL 2.5 mg inhalation BID PRN 09/25/19 06/11/23 History (0.083 %) solution for nebulization .WORSENING ASTHMA bimatoprost 0.01 % eye drops 1 drp OPB HS 09/25/19 06/11/23 History (Lumigan) ferrous sulfate 325 mg (65 mg 325 mg PO HS 02/23/20 06/11/23 History iron) tablet (iron) aspirin 81 mg tablet,delayed 81 mg PO DAILY 02/05/21 06/11/23 History release (Kenzie Low Dose Aspirin) ipratropium 20 mcg-albuterol 100 1 puff inhalation QID 04/09/21 06/11/23 History mcg/actuation mist for inhalation (Combivent Respimat) dicyclomine 20 mg tablet 20 mg PO DAILY 01/14/22 06/11/23 History sertraline 25 mg tablet 25 mg PO DAILY 03/13/22 06/11/23 History methimazole 5 mg tablet 5 mg PO DAILY 07/17/22 06/11/23 History metoprolol succinate 25 mg 12.5 mg PO DAILY 07/17/22 06/11/23 History tablet,extended release 24 hr dorzolamide 2 % eye drops 1 drp ophthalmic (eye) BID 11/16/22 06/11/23 History glimepiride 2 mg tablet 2 mg PO DAILY PRN NEEDED PER PT 11/16/22 06/11/23 History oxycodone 5 mg tablet 5 mg PO Q4H PRN Pain 11/16/22 06/11/23 History pantoprazole 40 mg tablet,delayed 40 mg PO DAILY 11/16/22 06/11/23 History release sucralfate 1 gram tablet 1 g PO ACHS PRN Gi Upset 11/16/22 06/11/23 History tiotropium bromide 2.5 2 puff inhalation DAILY #1 inhaler 02/10/23 06/11/23 Rx mcg/actuation mist for inhalation (Spiriva Respimat) albuterol sulfate 90 mcg/actuation 2 puff inhalation QID PRN 06/11/23 06/11/23 History aerosol inhaler Shortness Of Breath gabapentin 100 mg capsule 100 mg PO TID 06/14/23 06/14/23 History furosemide 40 mg tablet 40 mg PO DAILY #60 tabs 06/26/23 06/11/23 Rx isosorbide dinitrate 10 mg tablet 10 mg PO BID@0700,1200 30 days #60 06/26/23 Rx tabs Hospital Stay Data Consultations 06/12/23 00:26 ED Decision to Admit Stat 06/12/23 08:00 Consult Cardiology Routine Pending Results Patient Have Any Pending Studies at Discharge: No Discharge Instructions Given to Patient (Per Discharging Provider) You were admitted for a heart failure exacerbation. The following changes were made to your medications: -Stop Spironolactone -Stop potassium supplementation -Dose for Lasix will be 40mg daily given low blood pressure, however, if weight increased by more than 2 pounds, please take additional dose in afternoon -Added Isordil 10mg at 7am and 12pm(noon) All other medications will continue as prescribed by your [employer]/PCP. Please follow up with Cardiology as well as Heart Failure clinic for close monitoring of your cardiac status Total Time Total Time Spent Total Time Spent (In Minutes): 40
== END 2023-06-26 17:06 | DRG 291 ==
LOC: ED 18:27 → 2S 06-12 02:52 → SUATTDRO 06-12 02:52 → 2S 06-12 05:44